=== PATIENT | male | born 1960 | race Caucasian/White ===

== ENCOUNTER 2022-06-20 20:08 | Emergency (ER) | payer OTHER ==
[~2022-06-20 20:08] MED LIST: WATER FOR INJ,STERILE 10 ML ONE; ZIPRASIDONE MESYLA 20 MG/VIAL IM ONE
--- OUTSIDE RECORDS SUMMARY | 2022-06-20 20:31 | XMS REPORT | Continuity of Care Document ---
:1960 Author Organization [facility] t Address [address] [place] [address] [address] [place] [address] Care Team Providers Name Role Phone CARLOTA SHEY Primary Care Physician Unavailable [id number] Attending Clinician Unavailable IZABELA PHAM Attending Clinician Unavailable IZABELA PHAM Attending Clinician Unavailable LAWRENCE PETERSON Attending Clinician Unavailable LAWRENCE PETERSON Attending Clinician Unavailable ROBINA BECERRIL Attending Clinician Unavailable Kvng CORONADO, Elyssa Thornton Attending Clinician Unavailable ALLAN LYNCH Attending Clinician Unavailable Meche Perry Attending Clinician Luis Huerta DO Attending Clinician Jaye Palafox MD Attending Clinician Lance Neal DO Attending Clinician RENEE PAREKH Attending Clinician Unavailable WOO DURAN Attending Clinician Unavailable Robina Becerril MD Attending Clinician RODRIGO BLACKMON Attending Clinician Unavailable Rodrigo Benavidez Attending Clinician Carlos Corbin MD Attending Clinician Doctor Unassigned, Susan Moore Attending Clinician Unavailable Dawson Choudhury MD Attending Clinician DAWSON CHOUDHURY Attending Clinician Unavailable DAWSON CHOUDHURY Attending Clinician Unavailable , [facility] Attending Clinician Unavailable Susan Manjarrez PA-C Attending Clinician USSAN MANJARREZ Attending Clinician Unavailable DELROY FARAH Attending Clinician Unavailable Delroy Farah MD Attending Clinician [facility] Attending Clinician Unavailable Erma Morales RN Attending Clinician Unavailable MAGDALENE MALDONADO Attending Clinician Unavailable Joel LAB AIDEMagdalene Garibay Attending Clinician Omaghomi MAE, Lenayemsuma Attending Clinician CARLOS CORBIN Attending Clinician Unavailable Ladonna Bryant DO Attending Clinician MICHAEL GILL Attending Clinician Unavailable Michael Fulton Attending Clinician CLEVE_ Attending Clinician Unavailable BENITO LOPEZ Attending Clinician Unavailable Edgard Leo DO Attending Clinician Magali Curtis MD Attending Clinician Ted Lion MD Attending Clinician Allen Maravilla MD Attending Clinician Georgina Duncan MD Attending Clinician [phone] SIENNA POLK Attending Clinician Unavailable LADI RIBERA Attending Clinician Unavailable YASMINE BROOKE Attending Clinician Unavailable MD YASMINE BROOKE Attending Clinician Unavailable Pato Hill MD Attending Clinician Surgery, [facility] General Attending Clinician Unavailable Sofia Malone MD Attending Clinician Surgery, [facility] Vascular Attending Clinician Unavailable Nereida CARTER, Ramana Egan Attending Clinician RAMANA AHMADI M.D., RAMANA Acevedo M.D. Attending Clinician Unavailable Christy Moya Attending Clinician [id number] Admitting Clinician Unavailable IZABELA PHAM Admitting Clinician Unavailable ALLAN LYNCH Admitting Clinician Unavailable MICHAEL GILL Admitting Clinician Unavailable CARLOS CORBIN Admitting Clinician Unavailable YVON_UZAIR__ Admitting Clinician Unavailable Magali Curtis MD Admitting Clinician Georgina Duncan MD Admitting Clinician [phone] YASMINE BROOKE Admitting Clinician Unavailable MD YASMINE BROOKE Admitting Clinician Unavailable Pato Hill MD Admitting Clinician RAMANA AHMADI M.D., RAMANA Acevedo Admitting Clinician Tasha ivey Payers Payer Name Policy Type Policy Number Effective Date Expiration Date S emmanuel [facility] [id number] [place] [id number] 2021 CLASSIC NO PREMIUM 00:00:00 O MEDICARE PART A [id number] 2003 00:00:00 [facility] [id number] [facility] 00:00:00 WELLCARE VALUE [id number] 2020 00:00:00 Problems Condition Condition Condition Status Onset Resolution Last Treating Co mments Source Name Details Category Date Date Treatment Clinician Date 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 4-14 ity of 00:00: [place] [id number] Medical Branch DVT (deep DVT (deep Disease Active Uni vers venous venous 4-14 [place] of [place] 00 [place] Bilateral Bilateral Disease Active Uni vers sciatica sciatica 4-13 ity of 00:00: [place] 00 Medical Branch Obesity Obesity Disease Active Univers (BMI (BMI 4-13 ity of 30-39.9) 30-39.9) 00:00: [place] 00 Medical Branch Deep vein Deep vein Disease Active Overview: Univers thrombosis thrombosis 4-13 Formattin ity of (DVT) of (DVT) of 00:00: g of this [place] as proximal proximal 00 note Medica l vein of vein of might be Branch both lower both lower different extremitie extremitie from the s, s, original. unspecifie unspecifie Added d d automatic chronicity chronicity ally from request for surgery [id number] Lipoma of Lipoma of Disease Active Overview: Univers right right 4-12 Formattin ity of lower lower 00:00: g of this [place] extremity extremity 00 note Medi gordon might be Branch different from the original. Added automatic ally from request for surgery [id number] Lipoma of Lipoma of Disease Active Uni vers torso torso 4-06 ity of 00:00: Medical Branch Kamryn Karmyn Disease Active Univers 624 ity of 00:00: Medical Branch Rhabdomyol Rhabdomyol Disease Active U nivers ysis ysis 6-21 ity of 00:00: Medical Branch Presence Presence Disease Active Metho di of IVC of IVC 17 st filter filter 00:00: [facility]osp[facility] 00 l Acute Acute Disease Active Methodi chest pain chest pain 9-15 st 00:00: [facility]ospita 00 l Behavior Behavior Disease Active Unive rs problem problem 6 ity of 00:00: [place] [facility] Cellulitis Cellulitis Disease Active U nivers and and 613 ity of abscess of abscess of [place] foot foot 00 [place] Alteration Alteration Disease Active U nivers consciousn consciousn 613 it y of ess ess 00:00: [place] [facility] TESTING TESTING Diagnosis Active 2014-07-28 Memoria FOR DVT FOR DVT 07-22 14:06:00 l Active 00:00: [place] 07/22/2014 00 [facility] 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 2-16 ity of disorder, disorder, [place] chronic chronic 00 Medical condition condition Bran ch with acute with acute exacerbati exacerbati on on Hypertensi Hypertens Problem Active 2014-07-25 Memoria ve raisa 07:19:48 l disorder, disorder, Herm britt systemic systemic arterial arterial (disorder) (disorder) Active Problem 07/25/2014 [facility] History of Past Illness Condition Condition Condition Status Onset Resolution Last Treating Co mments Source Name Details Category Date Date Treatment Clinician Date Discharge Discharge Problem 2014-07-25 2014-07-25 Memoria Diagnosis: Diagnosis: 07-22 07:19:48 07:19:48 l Chronic Chronic 05:00: [place] back pain back pain 00 07/22/2014 07/25/2014 [facility] Discharge Discharge Problem 2014-07-25 2014-07-25 Memoria Diagnosis: Diagnosis: 07-22 07:19:48 07:19:48 l Peripheral Peripheral 05:00: He rmann edema edema 00 07/22/2014 07/25/2014 [facility] Allergies, Adverse Reactions, Alerts Allergy Allergy Status Severity Reaction(s) Onset Inactive Treating Comm ents Source Name Type Date Date Clinician HEPARIN DRUG Active Unknown-Cmnt Uni vers INGREDI 4- ity of 00:00: [place] 00 Medical Branch Heparin Propensi Active Unknown - HIT-Ab Univ ers ty to See comments 4- ity of adverse 00:00: [place] reaction 00 Medical s Branch GABAPENT DRUG Active Other-Cmnt Univ ers IN INGREDI 4- ity of 00:00: [place] 00 Medical Branch Gabapent Propensi Active Other - See Hot U nivers in ty to comments 4-21 flashes ity of adverse 00:00: and upset [place] reaction 00 stomach Medical s Branch Penicill DA Active U Rash 2019- SJm ins 04-05 00:00: 00 No Known DA Active U 2019-02 SJm Drug 04-04 Allergie 00:00: s 00 Penicill Propensi Active Rash Univer s ins ty to 1-06 ity of adverse 00:00: [place] reaction 00 Medical s to Branch drug PENICILL Drug Active Rash Univers INS Class - ity of 00:00: [place] 00 Medical Branch Penicill Penicill Active Memori a in in l [place] Family History Family Member Diagnosis Comments Start Date Stop Date Source Natural father [facility] mother Diabetes [facility] Social History Social Habit Start Date Stop Date Quantity Comments Source History SDOH University o f Alcohol Std Drinks [place] [facility] History SDOH University o f Alcohol Binge [place] [facility] al [facility] History SDOH Social Unive rsity of Connections Get [place] Med ical Together Branch History SDOH Social Unive rsity of Connections Judaism [place] [facility] History SDOH Social Unive rsity of Connections [place] [facility] Membership Branch History SDOH Social Unive rsity of Connections [place] [facility] Meetings Branch Gender identity [facility] Exposure to 2022-06-06 2022-06-16 Not sure University of SARS-CoV-2 (event) 00:00:00 10:47:00 [place] [facility] History SDOH 2022-05-27 2022-05-27 1 University o f Alcohol Frequency 00:00:00 00:00:00 [place] M edical Branch History SDOH Social 2022-05-27 2022-05-27 5 Unive rsity of Connections Phone 00:00:00 00:00:00 [place] M edical Branch History SDOH Social 2022-05-27 2022-05-27 5 Unive rsity of Connections Living 00:00:00 00:00:00 [place] [facility] History SDOH 2022-05-27 2022-05-27 0 University o f Physical Activity 00:00:00 00:00:00 [place] M edical DPW Branch History SDOH 2022-05-27 2022-05-27 0 University o f Physical Activity 00:00:00 00:00:00 [place] M edical MPS Branch History SDOH 2022-05-27 2022-05-27 5 University o f Financial 00:00:00 00:00:00 [place] [facility] History SDOH Food 2022-05-27 2022-05-27 1 Univers ity of Worry 00:00:00 00:00:00 [place] [facility] History SDOH Food 2022-05-27 2022-05-27 1 Univers ity of Scarcity 00:00:00 00:00:00 [place] [facility] History SDOH 2022-05-27 2022-05-27 2 University o f Transport Med 00:00:00 00:00:00 [place] Medic al Branch History SDOH 2022-05-27 2022-05-27 2 University o f Transport Non-Med 00:00:00 00:00:00 [place] M edical Branch History SDIN 2022-05-27 2022-05-27 2 University o f Housing Unable to 00:00:00 00:00:00 [place] M edical Pay Branch History SDOH 2022-05-27 2022-05-27 1 University o f Housing Places 00:00:00 00:00:00 [facility] gordon Lived Branch History SDIN 2022-05-27 2022-05-27 2 University o f Housing Homeless 00:00:00 00:00:00 [facility] dical Last Year Branch Education 2022-05-26 2022-05-26 21 University of 00:00:00 00:00:00 [facility] Tobacco use and 2022-05-03 2022-05-03 User of Universit y of exposure 00:00:00 00:00:00 smokeless [facility] tobacco [place] Tobacco Comment 2021-09-22 2021-09-22 dipper Universit y of 00:00:00 00:00:00 [facility] History of Social 2019-10-31 2019-10-[address] function 00:00:00 00:00:00 Hospital Alcohol intake 2019-10-29 2019-10-29 Lifetime Catholic 00:00:00 00:00:00 non-drinker Hospital (finding) History of tobacco 2014-08-25 Snuff User Univer sity of use 00:00:00 [facility] Sex Ass[birth year] Catholic 00:00:00 00:00:00 Hospital Smoking Status Start Date Stop Date Source Social History [facility] Medications Ordered Filled Start Stop Current Ordering Indication Dosage Frequency Signature Comments Components Source Medication Medication Date Date Medication? Clinician (SIG) Name Name traMADoL 50 Yes Univer s mg tablet 5-01 ity of 00:00: Medical Branch traMADoL 50 2022-0 Yes Univer s mg tablet 5-01 ity of 00:00: Medical Branch traMADoL 50 2022-0 Yes Univer s mg tablet 5-01 ity of 00:00: 00 Medical Branch tc 2022-0 202- No [id number] 25mCi 25 Univer s 99m-medrona 4-25 04-25 millicurie i ty of te 13:50: 13:50 , [place] (DRAXIMAGE 00 :00 Intravenou Med ical MDP-25) s, ONCE, 1 Branch injection dose, [place] 06/07/22 at 0900, Routine apixaban 5 2022- Yes 5523 5mg Take 1 Univ ers mg tablet 4-25 05-26 tablet by ity of 00:00: 04:59 mouth in [place] 00 :00 the Medical morning Branch and 1 tablet in the evening. Do all this for 30 days. Indication s: history of deep vein thrombosis apixaban 5 2022-2022- Yes 5523 5mg Take 1 Univ ers mg tablet 4-25 05-26 tablet by ity of 00:00: 04:59 mouth in [place] 00 :00 the Medical morning Branch and 1 tablet in the evening. Do all this for 30 days. Indication s: history of deep vein thrombosis apixaban 5 2022-2022- Yes 5523 5mg Take 1 Univ ers mg tablet 4-25 05-26 tablet by ity of 00:00: 04:59 mouth in [place] 00 :00 the [facility] morning Branch and 1 tablet in the evening. Do all this for 30 days. Indication s: history of deep vein thrombosis apixaban 5 2022-0 2022- Yes 5523 5mg Take 1 Univ ers mg tablet 4-25 05-26 tablet by ity of 00:00: 04:59 mouth in [place] 00 :00 the Medical morning Branch and 1 tablet in the evening. Do all this for 30 days. Indication s: history of deep vein thrombosis apixaban 5 2022-0 2022- Yes 5523 5mg Take 1 Univ ers mg tablet 4-25 05-26 tablet by ity of 00:00: 04:59 mouth in [place] 00 :00 the Medical morning Branch and 1 tablet in the evening. Do all this for 30 days. Indication s: history of deep vein thrombosis apixaban 5 2022-0 2022- Yes 5523 5mg Take 1 Univ ers mg tablet 4-25 05-26 tablet by ity of 00:00: 04:59 mouth in [place] 00 :00 the Medical morning Branch and 1 tablet in the evening. Do all this for 30 days. Indication s: history of deep vein thrombosis apixaban 5 20222022- Yes 5523 5mg Take 1 Univ ers mg tablet 4-25 05-26 tablet by ity of 00:00: 04:59 mouth in [place] 00 :00 the Medical morning Branch and 1 tablet in the evening. Do all this for 30 days. Indication s: history of deep vein thrombosis apixaban 5 2022-2022- Yes 5523 5mg Take 1 Univ ers mg tablet 4-25 05-26 tablet by ity of 00:00: 04:59 mouth in [place] 00 :00 the Medical morning Branch and 1 tablet in the evening. Do all this for 30 days. Indication s: history of deep vein thrombosis apixaban 5 2022-2022- Yes 5523 5mg Take 1 Univ ers mg tablet 4-25 05-26 tablet by ity of 00:00: 04:59 mouth in [place] 00 :00 the Medical morning Branch and 1 tablet in the evening. Do all this for 30 days. Indication s: history of deep vein thrombosis apixaban 5 2022- Yes 5523 5mg Take 1 Univ ers mg tablet 4- 05-26 tablet by ity of 00:00: 04:59 mouth in [place] 00 :00 the Medical morning Branch and 1 tablet in the evening. Do all this for 30 days. Indication s: history of deep vein thrombosis apixaban 5 2022- Yes 5523 5mg Take 1 Univ ers mg tablet - 05-26 tablet by ity of 00:00: 04:59 mouth in [place] 00 :00 the Medical morning Branch and 1 tablet in the evening. Do all this for 30 days. Indication s: history of deep vein thrombosis acetaminoph 2022- Yes [id number] 500mg Take 1 Univers en 500 mg 4-25 05-06 tablet by ity of tablet 00:00: 04:59 mouth [place] 00 :00 every 6 Medical (six) Branch hours as needed for Pain for up to 10 days. acetaminoph 2022- Yes [id number] 500mg Take 1 Univers en 500 mg 4-25 05-06 tablet by ity of tablet 00:00: 04:59 mouth [place] 00 :00 every 6 Medical (six) Branch hours as needed for Pain for up to 10 days. acetaminoph 2022- Yes [id number] 500mg Take 1 Univers en 500 mg 4-25 05-06 tablet by ity of tablet 00:00: 04:59 mouth [place] 00 :00 every 6 Medical (six) Branch hours as needed for Pain for up to 10 days. acetaminoph 2022- Yes [id number] 500mg Take 1 Univers en 500 mg 4-25 05-06 tablet by ity of tablet 00:00: 04:59 mouth [place] 00 :00 every 6 Medical (six) Branch hours as needed for Pain for up to 10 days. acetaminoph 2022- Yes [id number] 500mg Take 1 Univers en 500 mg 4-25 05-06 tablet by ity of tablet 00:00: 04:59 mouth [place] 00 :00 every 6 Medical (six) Branch hours as needed for Pain for up to 10 days. acetaminoph 2022- Yes [id number] 500mg Take 1 Univers en 500 mg 4-25 05-06 tablet by ity of tablet 00:00: 04:59 mouth [place] 00 :00 every 6 Medical (six) Branch hours as needed for Pain for up to 10 days. acetaminoph 2022- Yes [id number] 500mg Take 1 Univers en 500 mg 4-25 05-06 tablet by ity of tablet 00:00: 04:59 mouth [place] 00 :00 every 6 Medical (six) Branch hours as needed for Pain for up to 10 days. docusate 2022- Yes [id number] 100mg Take 1 Univers 100 mg 4-25 05-03 capsule by ity of capsule 00:00: 04:59 mouth in [place] 00 :00 the Medical morning Branch for 7 days. HYDROcodone 2022- Yes [id number] 1{tbl} Take 1 U nivers -acetaminop 4-25 05-03 tablet by it y of hen 10-325 00:00: 04:59 mouth [place] mg tablet 00 :00 every 6 Medical (six) Branch hours as needed for Pain (scale 7-10) or Pain (scale 4-6) for up to 7 days. Indication s: acute pain polyethylen 2022- Yes [id number] 17g Take 1 Univers e glycol 4-25 05-03 Packet by ity o f 3350 17 00:00: 04:59 mouth [place] gram powder 00 :00 every 24 Medi gordon (twenty-fo Branch ur) hours as needed for Constipati on for up to 7 days. docusate 2022- Yes [id number] 100mg Take 1 Univers 100 mg 4-25 05-03 capsule by ity of capsule 00:00: 04:59 mouth in [place] 00 :00 the Medical morning Branch for 7 days. HYDROcodone 2022- Yes [id number] 1{tbl} Take 1 U nivers -acetaminop 4-25 05-03 tablet by it y of hen 10-325 00:00: 04:59 mouth [place] mg tablet 00 :00 every 6 Medical (six) Branch hours as needed for Pain (scale 7-10) or Pain (scale 4-6) for up to 7 days. Indication s: acute pain polyethylen 2022- Yes [id number] 17g Take 1 Univers e glycol 4-25 05-03 Packet by ity o f 3350 17 00:00: 04:59 mouth [place] gram powder 00 :00 every 24 [facility] hours as needed for Constipati on for up to 7 days. docusate 2022- Yes [id number] 100mg Take 1 Univers 100 mg 4-25 05-03 capsule by ity of capsule 00:00: 04:59 mouth in [place] 00 :00 the Medical morning Branch for 7 days. HYDROcodone 2022- Yes [id number] 1{tbl} Take 1 U nivers -acetaminop 4-25 05-03 tablet by it y of hen 10-325 00:00: 04:59 mouth [place] mg tablet 00 :00 every 6 Medical (six) Branch hours as needed for Pain (scale 7-10) or Pain (scale 4-6) for up to 7 days. Indication s: acute pain polyethylen 2022- Yes [id number] 17g Take 1 Univers e glycol 4-25 05-03 Packet by ity o f 3350 17 00:00: 04:59 mouth [place] gram powder 00 :00 every 24 Medi gordon (twenty-fo Branch ur) hours as needed for Constipati on for up to 7 days. docusate 2022- Yes [id number] 100mg Take 1 Univers 100 mg 4-25 05-03 capsule by ity of capsule 00:00: 04:59 mouth in [place] 00 :00 the [facility] Branch for 7 days. HYDROcodone 2022- Yes [id number] 1{tbl} Take 1 U nivers -acetaminop 06-07-03 tablet by it y of hen 10-325 00:00: 04:59 mouth [place] mg tablet 00 :00 every 6 Medical (six) Branch hours as needed for Pain (scale 7-10) or Pain (scale 4-6) for up to 7 days. Indication s: acute pain polyethylen 2022- Yes [id number] 17g Take 1 Univers e glycol 06-07- Packet by ity o f 3350 17 00:00: 04:59 mouth [place] gram powder 00 :00 every 24 Medi gordon (twenty-fo Branch ur) hours as needed for Constipati on for up to 7 days. benzocaine- Yes 1{lozen 1 Lozenge, Univers menthoL 4-23 ge} Oral, ity of (CEPACOL 05:03: Q4HPRN, [place] SORE THROAT 14 Starting Medi gordon (CLAUDIA-MEN)) [facility] at Lozenge 0003, Until Discontinu ed, Routine, Sore throat benzocaine- 0 Yes 1{lozen 1 Lozenge, Univers menthoL 4-23 ge} Oral, ity of (CEPACOL 05:03: Q4HPRN, [place] SORE THROAT 14 Starting Medi gordon (CLAUDIA-MEN)) on [facility] lozenge 06/05/22 at Lozenge 0003, Until Discontinu ed, Routine, Sore throat iopamidol 2022- No [id number] 80mL 80 mL, Univers (ISOVUE 06-05 Intravenou ity o f 370-500 mL) 01:36: 01:20 s, ONCE, 1 [place] injection 00 :00 dose, On Medica l 80 mL [facility] Branch 06/04/22 at 2045, Routine apixaban 2022- Yes 10mg [Order 1 Univ ers (ELIQUIS) 06-05 Start] ity of tablet 10 01:00: 00:59 Name: [place] mg 00 :00 apixaban Medical (ELIQUIS) Branch tablet 10 mg Signed Summary: 10 mg, Oral, BID, 14 doses, First dose on [facility] 06/04/22 at 1999, Last dose on [facility] 06/11/22 at 0800, Routine
Indicatio ns: DVT/PE [Order 1 End] [Order 2 Start] Name: apixaban (ELIQUIS) tablet 5 mg Signed Summary: 5 mg, Oral, BID, First dose on [facility] 06/11/22 at 1999, Until Discontinu ed, Routine
Indicatio ns: DVT/PE [Order 2 End] apixaban 2022- Yes 10mg [Order 1 Univ ers (ELIQUIS) 06-05 Start] ity of tablet 10 01:00: 00:59 Name: [place] mg 00 :00 apixaban Medical (ELIQUIS) Branch tablet 10 mg Signed Summary: 10 mg, Oral, BID, 14 doses, First dose on [facility] 06/04/22 at 1999, Last dose on [facility] 06/11/22 at 0800, Routine
Indicatio ns: DVT/PE [Order 1 End] [Order 2 Start] Name: apixaban (ELIQUIS) tablet 5 mg Signed Summary: 5 mg, Oral, BID, First dose on [facility] 06/11/22 at 1999, Until Discontinu ed, Routine
Indicatio ns: DVT/PE [Order 2 End] bisacodyL Yes 10mg 10 mg, Univer s (DULCOLAX) 06-04 Rectal, ity of suppository 15:25: QDAILYPRN [place] 10 mg 51 Starting Medical on [facility] 06/04/22 at 1025, Until Discontinu ed, Routine, Constipati on bisacodyL Yes 10mg 10 mg, Univer s (DULCOLAX) 06-04 Rectal, ity of suppository 15:25: QDAILYPRN, [place] 10 mg 51 Starting Medical on [facility] 06/04/22 at 1025, Until Discontinu ed, Routine, Constipati on argatroban 202- No .15ug/k 0.15-2 U nivers 50 mg in 06-04 04-22 g/min mcg/kg/min ity of 0.9% NaCl 08:24: 21:59 ?86.5 kg [place] as 50 mL RTU 03 :11 (0.7785-10 Medi gordon IV infusion .38 mL/hr, Br anch rounded to 0.78-10.38 mL/hr), IV Infusion, TITRATE, Parameters in Admin. Instr., Starting on 06/04/22 at 0324
No rmal dosage for non-critic al care patients without hepatic impairment . Ini tial infusion rate : 2 microgram/ kg/min (ABW), Check aPTT 3 hours after start of infusion.& nbsp;Adjus t rate of infusion as follows (MAXIUM INFUSION RATE NOT TO EXCEED 10 MICROGRAM/ KG/MIN): *aPTT = Activated Partial Thrombopla stin Time 1). Standard aPTT* (sec) < or = 44, Infusion rate change increase by 0.5 microgram/ kg/min, Next aPTT 3 hours after rate change. 2). Standard aPTT* (sec) 45-90 (target), Infusion rate change none, Next aPTT repeat 3 hours from last aPTT: after 2 consecutiv e aPTTs within target range, check aPTT every 12 hours. 3). Standard aPTT* (sec) 91-120, Infusion rate change decrease by 0.5 microgram/ kg/min, Next aPTT 3 hours after rate change. 4). Standard aPTT* (sec) 121-149, Infusion rate change hold infusion 1 hour, resume at 1/2 rate, Next aPTT 3 hours after rate change. 5). Standard aPTT* (sec) > or = 150, Infusion rate change hold infusion 1 hour, resume at 1/2 rate when aPTT < 90 sec, Next aPTT repeat every hour until aPTT < 90 sec. 6). If any acute bleeding/h ematoma, obtain STAT aPTT and CBC with platelet count and call physician< br> omeprazole 2022-0 Yes 20mg 20 mg, Unive rs (PRILOSEC) 4-22 Oral, ity of capsule 20 02:43: QDAILYPRN, [place] mg 53 Starting Medical on Mon Branch 06/03/22 at 2143, Until Discontinu ed, Routine, Indigestio n omeprazole 2022-0 Yes 20mg 20 mg, Unive rs (PRILOSEC) 06-04 Oral, ity of capsule 20 02:43: QDAILYPRN, [place] mg 53 Starting Medical on Fri Branch 06/03/22 at 2143, Until Discontinu ed, Routine, Indigestio n NaCl 0.9% 2022-0 Yes 1000mL at 75 Unive rs (NS) IV 4-21 mL/hr, IV ity of infusion 18:00: Infusion, [place] 1,000 mL 00 CONTINUOUS Medic al , Starting Branch on Mon06/03/22 at 1300, Until Discontinu ed, Routine, PACU NaCl 0.9% 2022-0 Yes 1000mL at 75 Unive rs (NS) IV 4-21 mL/hr, IV ity of infusion 18:00: Infusion, [place] 1,000 mL 00 CONTINUOUS Medic al , Starting Branch on Mon06/03/22 at 1300, Until Discontinu ed, Routine, PACU heparin 2022-0 2022- No PRN, Univers 10,000 06-03 Starting ity of units in NS 14:25: 07:25 on Mon [place] as 1000 mL for 00 :55 06/03/22 at Il dical vascular 0925, Branch Intra-op heparin 2022-0 2022- No 0U/h 0-3,050 Univer s 25,000 06-02- Units/hr ity of Units/250 15:22: 07:25 (0-30.5 [place] mL 27 :20 mL/hr), IV Medical (Premixed Infusion, Branc h Bag) in D5W TITRATE, Parameters in Admin. Instr., Starting on [place] 06/02/22 at 1022
In itiate dosing:&nb sp; & nbsp;&nbsp ; -Patient 73 kg or under: 1,300 Units/hr (Calculate d dose at 18 units/kg/h r) &n bsp; &nbs p; -Patient over 73 k,300 units/hr&n bsp;DO NOT Exceed the MAXIMUM 1,300 units/hr for initiation of heparin drip.&nbsp ; CAU TION - If LMWH given in ER, AVOID bolus and start next dose/drip 12 hrs after ER dosage.&nb sp; M ust program rate using programmab le infusion pump.&nbsp ; Priti ck with the ordering provider first prior to any administra tion should the patient be on existing/a dditional anticoagul ant therapy. Rang e, Dosing and Testing: &nbs p;DO NOT ADJUST INITIAL BOLUS OR INITIAL INFUSION RATE.&nbsp ; _ &nb sp;FOR [place], [facility], AND [facility] ONLY &nbs p; - aPTT < 35: & nbsp;Bolus 5000 units, increase rate 300 units/hr&n bsp; - aPTT 35-44:&nbs p; Brian brigid 3000 units, increase rate 200 units/hr&n bsp; - aPTT 45-54:&nbs p; In crease rate 100 units/hr&n bsp; - aPTT 55-85:&amp ;nbsp;&nbs p;NO CHANGE&nbs p; - aPTT 86-95:&nbs p; De crease rate 100 units/hr&n bsp; - aPTT 96-120:&nb sp; H old 30 minutes, decrease rate 150 units/hr&n bsp; - aPTT > 120: Hold 60 minutes, decrease rate 200 units/hr&n bsp; Check aPTT 6 hours after initiation , then Q6H after every change, aPTT Q12H once therapeuti c levels are reached.&n bsp; &nbs p; __ &n bsp;FOR [facility] ONLY - aPTT < 40: & nbsp;Bolus 5000 units, increase rate 300 units/hr&n bsp; - aPTT 40-49:&nbs p; Brian brigid 3000 units, increase rate 200 units/hr&n bsp; - aPTT 50-59:&nbs p; In crease rate 100 units/hr&n bsp; - aPTT 60-85:&nbs p; NO CHANGE&nbs p; - aPTT 86-95:&nbs p;&nbs p;Decrease rate 100 units/hr&n bsp; - aPTT 96-120:&nb sp; H old 30 minutes, decrease rate 150 units/hr&n bsp; - aPTT > 120: Hold 60 minutes, decrease rate 200 units/hr&n bsp; Check aPTT 6 hours after initiation , then Q6H after every change, aPTT Q12H once therapeuti c levels are reached.<b r> mineral oil Yes 30mL 30 mL, Univ ers (MINERAL 4-20 Oral, ity of OIL EXTRA 14:00: DAILY, [place] HEAVY) oral 00 First dose Me dical liquid 30 on [place] [facility] mL 06/02/22 at 0900, Until Discontinu ed, Routine mineral oil Yes 30mL 30 mL, Univ ers (MINERAL 4-20 Oral, ity of OIL EXTRA 14:00: DAILY, [place] HEAVY) oral 00 First dose Me dical liquid 30 on [place] mL 06/02/22 at 0900, Until Discontinu ed, Routine apixaban 2022- Yes 10mg [Order 1 Univ ers (ELIQUIS) 05-31 Start] ity of tablet 10 15:30: 12:59 Name: [place] mg 00 :00 apixaban Medical (ELIQUIS) Branch tablet 10 mg Signed Summary: 10 mg, Oral, BID, 14 doses, First dose on Mon05/31/22 at 1030, Last dose on Mon06/06/22 at 2000, Routine
Indicatio ns: DVT/PE [Order 1 End] [Order 2 Start] Name: apixaban (ELIQUIS) tablet 5 mg Signed Summary: 5 mg, Oral, BID, First dose on Mon06/07/22 at 0800, Until Discontinu ed, Routine
Indicatio ns: DVT/PE [Order 2 End] docusate 0 Yes 100mg 100 mg, Unive rs (COLACE) 18 Oral, ity of capsule 100 14:00: [place] 00 First dose Medical on [facility] 05/31/22 at 0900, Until Discontinu ed, Routine docusate 2022-0 Yes 100mg 100 mg, Unive rs (COLACE) 18 Oral, ity of capsule 100 14:00: [place]ILY[place] 00 First dose Medical on [facility] 05/31/22 at 0900, Until Discontinu ed, Routine docusate 0 Yes 100mg 100 mg, Unive rs (COLACE) 18 Oral, ity of capsule 100 14:00: [place]ILY[place] 00 First dose Medical on [facility] 05/31/22 at 0900, Until Discontinu ed, Routine docusate 2022-0 Yes 100mg 100 mg, Unive rs (COLACE) 18 Oral, ity of capsule 100 14:00: DAILY, [place] 00 First dose Medical on [facility] 05/31/22 at 0900, Until Discontinu ed, Routine heparin 2022-0 2022- No 0U/h 0-3,050 Univer s 25,000 05-31 04-18 Units/hr ity of Units/250 05:09: 15:17 (0-30.5 [place] mL in NS 59 :08 mL/hr), IV Medic al Infusion, Branch TITRATE, Parameters in Admin. Instr., Starting on Mon05/31/22 at 0009
In itiate dosing:&nb sp; & nbsp;&nbsp ; -Patient 73 kg or under: 1,300 Units/hr (Calculate d dose at 18 units/kg/h r) &n bsp; &nbs p; -Patient over 73 k,300 units/hr&n bsp;DO NOT Exceed the MAXIMUM 1,300 units/hr for initiation of heparin drip.&nbsp ; CAU TION - If LMWH given in ER, AVOID bolus and start next dose/drip 12 hrs after ER dosage.&nb sp; M ust program rate using programmab le infusion pump.&nbsp ; Priti ck with the ordering provider first prior to any administra tion should the patient be on existing/a dditional anticoagul ant therapy. Rang e, Dosing and Testing: &nbs p;DO NOT ADJUST INITIAL BOLUS OR INITIAL INFUSION RATE.&nbsp ; _ &nb sp;FOR [facility], AND [facility] ONLY &nbs p; - aPTT < 35: & nbsp;Bolus 5000 units, increase rate 300 units/hr&n bsp; - aPTT 35-44:&nbs p; Brian brigid 3000 units, increase rate 200 units/hr&n bsp; - aPTT 45-54:&nbs p; In crease rate 100 units/hr&n bsp; - aPTT 55-85:&amp ;nbsp;&nbs p;NO CHANGE&nbs p; - aPTT 86-95:&nbs p; De crease rate 100 units/hr&n bsp; - aPTT 96-120:&nb sp; H old 30 minutes, decrease rate 150 units/hr&n bsp; - aPTT > 120: Hold 60 minutes, decrease rate 200 units/hr&n bsp; Check aPTT 6 hours after initiation , then Q6H after every change, aPTT Q12H once therapeuti c levels are reached.&n bsp; &nbs p; __ &n bsp;FOR [facility] ONLY - aPTT < 40: & nbsp;Bolus 5000 units, increase rate 300 units/hr&n bsp; - aPTT 40-49:&nbs p; Brian brigid 3000 units, increase rate 200 units/hr&n bsp; - aPTT 50-59:&nbs p; In crease rate 100 units/hr&n bsp; - aPTT 60-85:&nbs p; NO CHANGE&nbs p; - aPTT 86-95:&nbs p;&nbs p;Decrease rate 100 units/hr&n bsp; - aPTT 96-120:&nb sp; H old 30 minutes, decrease rate 150 units/hr&n bsp; - aPTT > 120: Hold 60 minutes, decrease rate 200 units/hr&n bsp; Check aPTT 6 hours after initiation , then Q6H after every change, aPTT Q12H once therapeuti c levels are reached.<b r> iopamidol 3-0 Yes PRN, Univers (ISOVUE-300 4-18 Starting ity of ) injection 02:47: on Mon05/30/[address] Until Discontinu ed, Routine, Intra-op iopamidol 2022-0 Yes PRN, Univers (ISOVUE-300 4-18 Starting ity of ) injection 02:47: on Mon05/30/[address] Until Discontinu ed, Routine, Intra-op iopamidol 2022-0 Yes PRN, Univers (ISOVUE-300 4-18 Starting ity of ) injection 02:47: on Mon05/30/[address] Until Discontinu ed, Routine, Intra-op heparin 2022-0 Yes PRN, Univers 10,000 4-18 Starting ity of units in NS 01:26: on [place] 1000 [place] for 00 05/30/22 at [facility] dical vascular 2025, Branch Intra-op heparin 2022-0 Yes 300U/h 300 Univers 25,000 4-17 Units/hr ity of Units/250 16:40: (3 mL/hr), [place] mL 36 IV Medical (Premixed Infusion, Branc h Bag) in D5W TITRATE, Parameters in Admin. Instr., Starting on Mon05/30/22 at 1140
30 0 Units/hr. Non titratable
heparin 2022-0 2023- No 300U/h 300 Univers 25,000 4-17 04-18 Units/hr ity of Units/250 16:40: 05:10 (3 mL/hr), [place] mL 36 :21 IV Medical (Premixed Infusion, Branc h Bag) in D5W TITRATE, Parameters in Admin. Instr., Starting on Mon05/30/22 at 1140
30 0 Units/hr. Non titratable
heparin 2022-0 Yes 300U/h 300 Univers 25,000 4-17 Units/hr ity of Units/250 14:24: (3 mL/hr), [place] mL in D5W 12 IV Medical infusion Infusion, Branch (CNR) TITRATE, Parameters in Admin. Instr., Starting on Mon05/30/22 at 0924
30 0 Units/hr. Non titratable
heparin 2022-0 2022- No 300U/h 300 Univers 25,000 4-17 04-18 Units/hr ity of Units/250 14:24: 05:10 (3 mL/hr), [place] mL in D5W 12 :21 IV Medical infusion Infusion, Branch (CNR) TITRATE, Parameters in Admin. Instr., Starting on Mon05/30/22 at 0924
30 0 Units/hr. Non titratable
alteplase 2022-0 Yes .5mg/h 0.5 mg/hr U nivers (CATHFLO 4-17 (12.5 ity of ACTIVASE) 14:00: mL/hr), IV [place] 20 mg in 00 Infusion, Medica l NaCl 0.9% CONTINUOUS Bran ch (NS) 500 mL , Starting infusion on Mon05/30/22 at 0900
In fuse Via: infusion catheter. Location: left lower extremity sheath. Total infusion max dose is 4 mg/hr from all infusion sites combined.< br> alteplase 2023-0 Yes .5mg/h 0.5 mg/hr U nivers (CATHFLO -17 (12.5 ity of ACTIVASE) 14:00: mL/hr), IV [place] 20 mg in 00 Infusion, Medica l NaCl 0.9% CONTINUOUS Bran ch (NS) 500 mL , Starting infusion on Mon05/30/22 at 0900
In fuse Via: infusion catheter. Location: Right lower extremity sheath. Total infusion max dose is 4 mg/hr from all infusion sites combined.< br> alteplase 3-0 2023- No .5mg/h 0.5 mg/hr Univers (CATHFLO 05-3018 (12.5 ity of ACTIVASE) 14:00: 05:10 mL/hr), IV [place] 20 mg in 00 :21 Infusion, Medica l NaCl 0.9% CONTINUOUS Bran ch (NS) 500 mL , Starting infusion on Mon05/30/22 at 0900
In fuse Via: infusion catheter. Location: left lower extremity sheath. Total infusion max dose is 4 mg/hr from all infusion sites combined.< br> alteplase 3-0 2023- No .5mg/h 0.5 mg/hr Univers (CATHFLO 05-3018 (12.5 ity of ACTIVASE) 14:00: 05:10 mL/hr), IV [place] 20 mg in 00 :21 Infusion, Medica l NaCl 0.9% CONTINUOUS Bran ch (NS) 500 mL , Starting infusion on Mon05/30/22 at 0900
In fuse Via: infusion catheter. Location: Right lower extremity sheath. Total infusion max dose is 4 mg/hr from all infusion sites combined.< br> KCL 2023-0 2023- No 20meq 20 mEq, Univers (KLOR-CON 05-30 Oral, ity of M20) tablet 11:15: 11:12 ONCE, 1 [place] 20 mEq 00 :00 dose, On Medical Mon Branch 05/30/22 at 0615, Routine heparin 2022-2022- No 0U/h 0-3,050 Univer s 25,000 05-30 04-17 Units/hr ity of Units/250 06:04: 14:01 (0-30.5 [place] mL 50 :49 mL/hr), IV Medical (Premixed Infusion, Branc h Bag) in TITRATE, 0.45 % NS Parameters in Admin. Instr., Starting on 05/30/22 at 0104
In itiate dosing:&nb sp; & nbsp;&nbsp ; -Patient 73 kg or under: 1,300 Units/hr (Calculate d dose at 18 units/kg/h r) &n bsp; &nbs p; -Patient over 73 k,300 units/hr&n bsp;DO NOT Exceed the MAXIMUM 1,300 units/hr for initiation of heparin drip.&nbsp ; CAU TION - If LMWH given in ER, AVOID bolus and start next dose/drip 12 hrs after ER dosage.&nb sp; M ust program rate using programmab le infusion pump.&nbsp ; Priti ck with the ordering provider first prior to any administra tion should the patient be on existing/a dditional anticoagul ant therapy. Rang e, Dosing and Testing: &nbs p;DO NOT ADJUST INITIAL BOLUS OR INITIAL INFUSION RATE.&nbsp ; _ &nb sp;[facility], AND [facility] ONLY &nbs p; - aPTT < 35: & nbsp;Bolus 5000 units, increase rate 300 units/hr&n bsp; - aPTT 35-44:&nbs p; Brian brigid 3000 units, increase rate 200 units/hr&n bsp; - aPTT 45-54:&nbs p; In crease rate 100 units/hr&n bsp; - aPTT 55-85:&amp ;nbsp;&nbs p;NO CHANGE&nbs p; - aPTT 86-95:&nbs p; De crease rate 100 units/hr&n bsp; - aPTT 96-120:&nb sp; H old 30 minutes, decrease rate 150 units/hr&n bsp; - aPTT > 120: Hold 60 minutes, decrease rate 200 units/hr&n bsp; Check aPTT 6 hours after initiation , then Q6H after every change, aPTT Q12H once therapeuti c levels are reached.&n bsp; &nbs p; __ &n bsp;FOR [facility] ONLY - aPTT < 40: & nbsp;Bolus 5000 units, increase rate 300 units/hr&n bsp; - aPTT 40-49:&nbs p; Brian brigid 3000 units, increase rate 200 units/hr&n bsp; - aPTT 50-59:&nbs p; In crease rate 100 units/hr&n bsp; - aPTT 60-85:&nbs p; NO CHANGE&nbs p; - aPTT 86-95:&nbs p;&nbs p;Decrease rate 100 units/hr&n bsp; - aPTT 96-120:&nb sp; H old 30 minutes, decrease rate 150 units/hr&n bsp; - aPTT > 120: Hold 60 minutes, decrease rate 200 units/hr&n bsp; Check aPTT 6 hours after initiation , then Q6H after every change, aPTT Q12H once therapeuti c levels are reached.<b r> hydralAZINE 2023-0 Yes 10mg 10 mg, Univ ers (APRESOLINE 4-17 Slow IV ity o f ) injection 03:32: [place], [place] 10 mg 18 Q4HPRN, Medical Starting Branch on 05/29/22 at 2232, Until Discontinu ed, Routine, DBP=>10 0; SBP=>160, and HR < 70 hydralAZINE 2023-0 Yes 10mg 10 mg, Univ ers (APRESOLINE 4-17 Slow IV ity o f ) injection 03:32: Push, [place] 10 mg 18 Q4HPRN, Medical Starting Branch on 05/29/22 at 2232, Until Discontinu ed, Routine, DBP=>10 0; SBP=>160, and HR < 70 hydralAZINE 2023-0 Yes 10mg 10 mg, Univ ers (APRESOLINE 4-17 Slow IV ity o f ) injection 03:32: Push, [place] 10 mg 18 Q4HPRN, Medical Starting Branch on 05/29/22 at 2232, Until Discontinu ed, Routine, DBP=>10 0; SBP=>160, and HR < 70 hydralAZINE 2023-0 Yes 10mg 10 mg, Univ ers (APRESOLINE 4-17 Slow IV ity o f ) injection 03:32: Push, [place] 10 mg 18 Q4HPRN, Medical Starting Branch on 05/29/22 at 2232, Until Discontinu ed, Routine, DBP=>10 0; SBP=>160, and HR < 70 labetaloL 2023-0 Yes 10mg 10 mg, Univer s (NORMODYNE) 4-17 Slow IV ity o f injection 03:31: Push, [place] 10 mg 53 Q4HPRN, Medical Starting Branch on 05/29/22 at 2231, Until Discontinu ed, Routine, SBP > 160 and HR > 70 labetaloL 2023-0 Yes 10mg 10 mg, Univer s (NORMODYNE) 4-17 Slow IV ity o f injection 03:31: [place], [place] 10 mg 53 Q4HPRN, Medical Starting Branch on 05/29/22 at 2231, Until Discontinu ed, Routine, SBP > 160 and HR > 70 labetaloL 3-0 Yes 10mg 10 mg, Univer s (NORMODYNE) 4-17 Slow IV ity o f injection 03:31: [place], [place] 10 mg 53 Q4HPRN, [facility] Starting [place] on [place] 05/29/22 at 2231, Until Discontinu ed, Routine, SBP > 160 and HR > 70 labetaloL 3-0 Yes 10mg 10 mg, Univer s (NORMODYNE) 4-17 Slow IV ity o f injection 03:31: [place], [place] 10 mg 53 Q4HPRN, [facility] Starting [place] on [place] 05/29/22 at 2231, Until Discontinu ed, Routine, SBP > 160 and HR > 70 traMADoL 2022-0 Yes 50mg 50 mg, Univers (ULTRAM) 4-17 Oral, Q6H, ity o f tablet 50 01:45: First dose [place] mg 00 on [facility] 05/29/22 at Branch 2044, Until Discontinu ed, Routine traMADoL 2022-0 Yes 50mg 50 mg, Univers (ULTRAM) 4-17 Oral, Q6H, ity o f tablet 50 01:45: First dose [place] mg 00 on [facility] 05/29/22 at Branch 2044, Until Discontinu ed, Routine traMADoL 2022-0 Yes 50mg 50 mg, Univers (ULTRAM) 4-17 Oral, Q6H, ity o f tablet 50 01:45: First dose [place] mg 00 on [facility] 05/29/22 at Branch 2044, Until Discontinu ed, Routine traMADoL 2022-0 Yes 50mg 50 mg, Univers (ULTRAM) 4-17 Oral, Q6H, ity o f tablet 50 01:45: First dose [place] mg 00 on [facility] 05/29/22 at Branch 2044, Until Discontinu ed, Routine HYDROcodone 2022-0 Yes 1{tbl} 1 tablet, Univers -acetaminop 4-17 Oral, ity of hen (NORCO) 01:37: Q6HPRN, [place] 10-325 mg 54 Starting Medica l tablet 1 on [facility] tablet 05/29/22 at 2036, Until Discontinu ed, Routine, Pain (scale 7-10), Pain (scale 4-6) HYDROcodone 2022-0 Yes 1{tbl} 1 tablet, Univers -acetaminop 4-17 Oral, ity of hen (NORCO) 01:37: Q6HPRN, [place] 10-325 mg 54 Starting Medica l tablet 1 on [place] tablet 05/29/22 at 2036, Until Discontinu ed, Routine, Pain (scale 7-10), Pain (scale 4-6) HYDROcodone 2022-0 Yes 1{tbl} 1 tablet, Univers -acetaminop 4-17 Oral, ity of hen (NORCO) 01:37: Q6HPRN, [place] 10-325 mg 54 Starting Medica l tablet 1 on [place] tablet 05/29/22 at 2036, Until Discontinu ed, Routine, Pain (scale 7-10), Pain (scale 4-6) HYDROcodone 2022-0 Yes 1{tbl} 1 tablet, Univers -acetaminop 4-17 Oral, ity of hen (NORCO) 01:37: Q6HPRN, [place] 10-325 mg 54 Starting Medica l tablet 1 on [place] tablet 05/29/22 at 2036, Until Discontinu ed, Routine, Pain (scale 7-10), Pain (scale 4-6) heparin 3-0 2023- No 300U/h 300 Univers 25,000 05-29 04-17 Units/hr ity of Units/250 17:45: 06:05 (3 mL/hr), [place] mL 01 :58 IV Medical (Premixed Infusion, Branc h Bag) in TITRATE, 0.45 % NS Parameters in Admin. Instr., Starting on Mon05/29/22 at 1245
30 0 units non titratable
acetaminoph 2022-0 Yes 500mg 500 mg, Un mary en 4-16 Oral, Q6H, ity of (TYLENOL) 17:15: First dose [place] tablet 500 00 (after Medical mg last Branch modificati on) on Mon05/29/22 at 1215, Until Discontinu ed, Routine acetaminoph 2023-0 Yes 500mg 500 mg, Un mary en 4-16 Oral, Q6H, ity of (TYLENOL) 17:15: First dose [place] tablet 500 00 (after Medical mg last Branch modificati on) on 05/29/22 at 1215, Until Discontinu ed, Routine acetaminoph 2023-0 Yes 500mg 500 mg, Un mary en 4-16 Oral, Q6H, ity of (TYLENOL) 17:15: First dose [place] tablet 500 00 (after Medical mg last Branch modificati on) on 05/29/22 at 1215, Until Discontinu ed, Routine acetaminoph 2023-0 Yes 500mg 500 mg, Un mary en 4-16 Oral, Q6H, ity of (TYLENOL) 17:15: First dose [place] tablet 500 00 (after Medical mg last Branch modificati on) on 05/29/22 at 1215, Until Discontinu ed, Routine HYDROcodone 2022-0 2022- No 1{tbl} 1 tablet, Univers -acetaminop 05-29 04-17 Oral, ity of hen (NORCO 17:03: 01:38 Q6HPRN, [place] 5) 5-325 mg 06 :07 Starting [facility] tablet 1 on [place] Branch tablet 05/29/22 at 1203, Until 05/29/22 at 2038, Routine, Pain (scale 4-6), Pain (scale 7-10) heparin 2022-0 202- No 300U/h 300 Univers 25,000 05-29 04-17 Units/hr ity of Units/250 15:46: 14:20 (3 mL/hr), [place] mL 48 :43 IV Medical (Premixed Infusion, Branc h Bag) in TITRATE, 0.45 % NS Parameters in Admin. Instr., Starting on 05/29/22 at 1046
30 0 units/hr, non-titrat able
iodixanoL 2022-0 Yes PRN, Univers (VISIPAQUE 16 Starting ity o f 270-150 mL) 13:50: [place] injection 00 05/29/22 at [facility] [place] [address], Branch Until Discontinu ed, Routine, Intra-op iodixanoL 2023-0 Yes PRN, Univers (VISIPAQUE -16 Starting ity o f 270-150 mL) 13:50: on [place] injection 00 05/29/22 at [place] [id number], [place] Until Discontinu ed, Routine, Intra-op iodixanoL 2023-0 Yes PRN, Univers (VISIPAQUE 4-16 Starting ity o f 270-150 mL) 13:50: on [place] injection 05/29/22 at [place] [id number], [place] Until Discontinu ed, Routine, Intra-op iodixanoL 2023-0 Yes PRN, Univers (VISIPAQUE 4-16 Starting ity o f 270-150 mL) 13:50: on [place] injection 05/29/22 at [place] [id number], Branch Until Discontinu ed, Routine, Intra-op lidocaine 2023-0 Yes PRN, Univers 1% (PF) 4-16 Starting ity of (XYLOCAINE) 13:00: [place] injection 05/29/22 at [place] [id number], [place] Until Discontinu ed, Routine, Intra-op lidocaine 2023-0 Yes PRN, Univers 1% (PF) 4-16 Starting ity of (XYLOCAINE) 13:00: on [place] injection 05/29/22 at [place] [id number], Branch Until Discontinu ed, Routine, Intra-op lidocaine 2023-0 Yes PRN, Univers 1% (PF) 4-16 Starting ity of (XYLOCAINE) 13:00: [place] injection 05/29/[address] Until Discontinu ed, Routine, Intra-op lidocaine 2023-0 Yes PRN, Univers 1% (PF) 4-16 Starting ity of (XYLOCAINE) 13:00: on [place] injection 05/29/22 at [place] [id number], [place] Until Discontinu ed, Routine, Intra-op alteplase 2023-0 2023- No 1mg/h 1 mg/hr Uni vers (CATHFLO 05-2917 (25 ity of ACTIVASE) 12:30: 13:58 mL/hr), IV [place] 20 mg in 00 :35 Infusion, Medica l NaCl 0.9% CONTINUOUS Bran ch (NS) 500 mL , Starting infusion on [place] 05/29/22 at 0730
In fuse Via: infusion catheter. Location: left lower extremity sheath. Total infusion max dose is 4 mg/hr from all infusion sites combined.< br> alteplase 2022- No 1mg/h 1 mg/hr Uni vers (CATHFLO 05-29 (25 ity of ACTIVASE) 12:30: 13:58 mL/hr), IV [place] 20 mg in 00 :35 Infusion, Medica l NaCl 0.9% CONTINUOUS Bran ch (NS) 500 mL , Starting infusion on 05/29/22 at 0730
In fuse Via: infusion catheter. Location: Right lower extremity sheath. Total infusion max dose is 4 mg/hr from all infusion sites combined.< br> morpHINE (2 2022- No 2mg 2 mg, Slow Univers mg/mL) 05-2915 IV [place], ity of injection 2 00:15: 23:36 ONCE, 1 [place] mg 00 :00 dose, On Medical Sat Branch 05/28/22 at 1915, Routine HEPARIN 2022- No 4000U 4,000 Univers SODIUM 05-28-15 Units, IV ity of (PORCINE) 16:30: 17:27 [place], [place] 1,000 00 :00 ONCE, 1 Medical UNIT/ML dose, On Branch BOLUS ACS Sat ORDER SET 05/28/22 at 1130, MICHELLE heparin 2022- No 0U/h 0-2,750 Univer s 25,000 05-28-16 Units/hr ity of Units/250 16:23: 15:43 (0-27.5 [place] mL 58 :36 mL/hr), IV Medical (Premixed Infusion, Branc h Bag) in TITRATE, 0.45 % NS Parameters in Admin. Instr., Starting on 05/28/22 at 1123
In itiate dosing:&nb sp; & nbsp;&nbsp ; -Patient 83 kg or under: 1,000 Units/hr (Calculate d dose at 12 units/kg/h r) &n bsp; &nbs p; -Patient over 83 k,000 units/hr&n bsp;DO NOT Exceed the MAXIMUM 1,000 units/hr for initiation of heparin drip.&nbsp ; CAU TION - If LMWH given in ER, AVOID bolus and start next dose/drip 12 hrs after ER dosage.&nb sp; M ust program rate using programmab le infusion pump.&nbsp ; Priti ck with the ordering provider first prior to any administra tion should the patient be on existing/a dditional anticoagul ant therapy. Rang e, Dosing and Testing: &nbs p;FOR [facility], AND [facility] ONLY &nbs p; - aPTT < 35: & nbsp;Bolus 5000 units, increase rate 300 units/hr&n bsp; - aPTT 35-44:&nbs p; Brian brigid 3000 units, increase rate 200 units/hr&n bsp; - aPTT 45-54:&nbs p; In crease rate 100 units/hr&n bsp; - aPTT 55-85:&nbs p; NO CHANGE&nbs p; - aPTT 86-95:&nbs p; De crease rate 100 units/hr&n bsp; - aPTT 96-120:&nb sp; H old 30 minutes, decrease rate 150 units/hr&n bsp; - aPTT > 120: Hold 60 minutes, decrease rate 200 units/hr&n bsp; Check aPTT 6 hours after initiation , then Q6H after every change, aPTT Q12H once therapeuti c levels are reached.&n bsp; &nbs p; __ &n bsp;FOR [facility] ONLY - aPTT < 40: & nbsp;Bolus 5000 units, increase rate 300 units/hr&n bsp; - aPTT 40-49:&amp ;nbsp;&nbs p;Bolus 3000 units, increase rate 200 units/hr&n bsp; - aPTT 50-59:&nbs p; In crease rate 100 units/hr&n bsp; - aPTT 60-85:&nbs p; NO CHANGE&nbs p; - aPTT 86-95:&nbs p; De crease rate 100 units/hr&n bsp; - aPTT 96-120:&nb sp; H old 30 minutes, decrease rate 150 units/hr&n bsp; - aPTT > 120: Hold 60 minutes, decrease rate 200 units/hr&n bsp; Check aPTT 6 hours after initiation , then Q6H after every change, aPTT Q12H once therapeuti c levels are reached.&n bsp; DO NOT ADJUST INITIAL BOLUS OR INITIAL INFUSION RATE.
heparin Yes 3000U FOR Univers (1,000 05-28 REBOLUSING ity of unit/mL, 10 16:23: , Starting [place] mL vial) 36 on [facility] for 05/28/22 at Branch Rebolusing 1123, Until Discontinu ed, Routine
Dosing based on aPPT testing parameters (refer to continuous heparin drip order).
sulfur 2022- No [id number] 5mL 5 mL, Univ ers hexafluorid 05-27 Intravenou i ty of e microsphr 18:30: 18:30 s, ONCE, 1 [place] (LUMASON) 00 :00 dose, On Medica l injection 5 Fri Branch mL 05/27/22 at 1330, Routine
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 medication : HAROON MOYER enoxaparin 2022- No 1mg/kg 90 mg Uni vers (LOVENOX) 05-27 (rounded ity o f injection 14:07: 16:25 from 86.5 [place] 90 mg 50 :10 mg = 1 Medical mg/kg Branch ?86.5 kg), [facility], First dose on Mon05/27/22 at 2000, Until Discontinu ed, Routine polyethylen 2023-0 Yes 17g 17 g, Unive rs e glycol 4-14 Oral, ity of 3350 powder 14:00: DAILY, [place] 17 g 00 First dose Medical on Mon05/27/22 at 0900, Until Discontinu ed, Routine polyethylen 2023-0 Yes 17g 17 g, Unive rs e glycol 4-14 Oral, ity of 3350 powder 14:00: DAILY, [place] 17 g 00 First dose [place] on Mon05/27/22 at 0900, Until Discontinu ed, Routine polyethylen 2023-0 Yes 17g 17 g, Unive rs e glycol 4-14 Oral, ity of 3350 powder 14:00: [place] 17 g 00 First dose Medical on Mon [place] 05/27/22 at 0900, Until Discontinu ed, Routine polyethylen 2023-0 Yes 17g 17 g, Unive rs e glycol 4-14 Oral, ity of 3350 powder 14:00: [place]ILY[place] 17 g 00 First dose Medical on Mon05/27/22 at 0900, Until Discontinu ed, Routine methocarbam 2023-0 Yes 500mg 500 mg, Un mary oL 4-14 Oral, QID, ity of (ROBAXIN) 13:00: First dose [place] tablet 500 00 on Mon [facility] mg 05/27/22 at [facility] 0800, Until Discontinu ed, Routine gabapentin 2023-0 Yes 300mg 300 mg, Uni vers (NEURONTIN) 4-14 Oral, TID, it y of capsule 300 13:00: First dose [place] mg 00 on Mon Medical 05/27/22 at [facility] 0800, Until Discontinu ed, Routine methocarbam 2023-0 Yes 500mg 500 mg, Un mary oL 4-14 Oral, QID, ity of (ROBAXIN) 13:00: First dose [place] tablet 500 00 on Fri Medical mg 05/27/22 at [facility] 0800, Until Discontinu ed, Routine gabapentin 2023-0 Yes 300mg 300 mg, Uni vers (NEURONTIN) 4-14 Oral, TID, it y of capsule 300 13:00: First dose [place] mg 00 on Fri Medical 05/27/22 at [facility] 0800, Until Discontinu ed, Routine methocarbam 202-0 Yes 500mg 500 mg, Un mary oL 4-14 Oral, QID, ity of (ROBAXIN) 13:00: First dose [place] tablet 500 00 on Fri Medical mg 05/27/22 at Branch 0800, Until Discontinu ed, Routine methocarbam 2022-0 Yes 500mg 500 mg, Un mary oL 4-14 Oral, QID, ity of (ROBAXIN) 13:00: First dose [place] tablet 500 00 on Fri Medical mg 05/27/22 at Branch 0800, Until Discontinu ed, Routine gabapentin 2022- No 300mg 300 mg, Un mary (NEURONTIN) 05-2722 Oral, TID, i ty of capsule 300 13:00: 04:23 First dose [place] mg 00 :21 on [facility] [place] Medical 05/27/22 at Branch 0800, Until Discontinu ed, Routine iopamidol 2022- No [id number] 100mL 100 mL, Univers (ISOVUE 05-27 [id number] Intravenou ity of 370-500 mL) 12:15: 12:15 s, ONCE, 1 [place] injection 00 :00 dose, On Medica l 100 mL Fri Branch 05/27/22 at 0715, Routine ALPRAZolam 2022- No .5mg 0.5 mg, Uni vers (XANAX) 05-27 Oral, ity of tablet 0.5 05:45: 05:15 ONCE, 1 [place] mg 00 :00 dose, On Medical Fri Branch 05/27/22 at 0045, Routine cyclobenzap 2022- No 10mg 10 mg, Uni vers rine 05-27 Oral, ity of (FLEXERIL) 04:47: 17:03 TIDPRN, [place] tablet 10 48 :01 Starting Medica l mg on [place] Branch 05/26/22 at 2347, Until 05/29/22 at 1203, Routine, Muscle Spasms HYDROcodone 2022-0 2022- No 1{tbl} 1 tablet, Univers -acetaminop 05-27-16 Oral, ity of hen (NORCO 04:44: 17:03 Q6HPRN, [place] 5) 5-325 mg 15 :15 Starting Medi [place] tablet 1 on [facility] tablet 05/26/22 at 2344, Until 05/29/22 at 1203, Routine, Pain (scale 4-6) ondansetron 3-0 Yes 4mg 4 mg, Slow Univers (ZOFRAN 4-14 IV Push, ity of (PF)) 01:30: Q6HPRN, [place] injection 4 58 Starting Medi gordon mg on [facility] Branch 05/26/22 at 2030, Until Discontinu ed, Routine, Nausea and Vomiting (N/V) ondansetron 2023-0 Yes 4mg 4 mg, Slow Univers (ZOFRAN 4-14 IV Push, ity of (PF)) 01:30: Q6HPRN, [place] injection 4 58 Starting Medi gordon mg on [facility] Branch 05/26/22 at 2030, Until Discontinu ed, Routine, Nausea and Vomiting (N/V) ondansetron 3-0 Yes 4mg 4 mg, Slow Univers (ZOFRAN 4-14 IV Push, ity of (PF)) 01:30: Q6HPRN, [place] injection 4 58 Starting Medi gordon mg on [facility] Branch 05/26/22 at 2030, Until Discontinu ed, Routine, Nausea and Vomiting (N/V) ondansetron 3-0 Yes 4mg 4 mg, Slow Univers (ZOFRAN 4-14 IV Push, ity of (PF)) 01:30: Q6HPRN, [place] injection 4 58 Starting Medi gordon mg on [facility] Branch 05/26/22 at 2030, Until Discontinu ed, Routine, Nausea and Vomiting (N/V) morpHINE (2 2022-2022- No 4mg 4 mg, Slow Univers mg/mL) 05-27-15 IV Push, ity of injection 4 01:30: 01:29 Q4HPRN, [place] mg 55 :55 Starting Medical on [place] Branch 05/26/22 at 2030, Until 05/27/22 at 2029, Routine, Pain (scale 7-10) methocarbam 2022-0 2022- No 500mg 500 mg, U nivers oL 05-27 Oral, ity of (ROBAXIN) 00:00: 23:10 ONCE, 1 [place] tablet 500 00 :00 dose, On Medic al mg [facility] Branch 05/26/22 at 1900, Routine traMADoL 2022- No 50mg 50 mg, Univer s (ULTRAM) 05-26 Oral, ity of tablet 50 23:45: 23:10 ONCE, 1 [place] mg 00 :00 dose, On [facility] 05/26/22 at 1845, Routine gabapentin 2022- No 300mg 300 mg, Un mary (NEURONTIN) 05-26 Oral, ity of capsule 300 23:00: 23:10 ONCE, 1 [place] mg 00 :00 dose, On [facility] 05/26/22 at 1800, MICHELLE methylpredn No 125mg 125 mg, U nivers isolone sod 05-26 Slow IV ity of succ 22:15: 21:28 Push, [place] (SOLU-MEDRO 00 :00 ONCE, 1 Medic al L) dose, On Branch injection [place] 125 mg 05/26/22 at 1715, IMCHELLE furosemide 2022- No 40mg 40 mg, IV U nivers (LASIX) 05-26 Push, ity of injection 21:15: 21:19 ONCE, 1 [place] 40 mg 00 :00 dose, On [facility] 05/26/22 at 1615, MICHELLE ketorolac 2022- No 30mg 30 mg, Unive rs (TORADOL) 05-23 Intramuscu ity of injection 23:00: 22:35 [place], ONCE, [place] 30 mg 00 :00 1 dose, On [facility] 05/23/22 at 1800, Routine diazePAM 2022- No 2.5mg 2.5 mg, Univ ers (VALIUM) 05-23 Oral, ity of tablet 2.5 22:45: 23:09 ONCE, 1 [place] mg 00 :00 dose, On [facility] 05/23/22 at 1745, MICHELLE HYDROcodone 2022- No 1{tbl} 1 tablet, Univers -acetaminop 05-23 Oral, ONCE i ty of hen (NORCO) 11:45: 11:00 NOW, 1 [place] 10-325 mg 00 :00 dose, On Medica l tablet 1 [place] [facility] Branch tablet 05/23/22 at 0645, MICHELLE gabapentin 2022-0 2022- No 600mg 600 mg, Un mary (NEURONTIN) 05-23 Oral, ity of capsule 600 09:00: 09:09 ONCE, 1 [place] mg 00 :00 dose, On Medical [facility] Branch 05/23/22 at 0400, MICHELLE dexamethaso 2022-0 2022- No 10mg 10 mg, Uni vers ne sod phos 05-23 Intramuscu i ty of PF 09:00: 09:07 lar, ONCE, [place] injection 00 :00 1 dose, On Medi gordon 10 mg [facility] Branch 05/23/22 at 0400, 1 mL gabapentin 2022-0 Yes [id number] 300mg Take 1 Univers 300 mg 4-10 capsule by ity of capsule 00:00: mouth in [place] [address] the [facility] and 1 capsule at noon and 1 capsule in the evening. gabapentin 2023-0 Yes [id number] 300mg Take 1 Univers 300 mg 4-10 capsule by ity of capsule 00:00: mouth in [place] [address] the [facility] and 1 capsule at noon and 1 capsule in the evening. gabapentin 2023-0 Yes [id number] 300mg Take 1 Univers 300 mg 4-10 capsule by ity of capsule 00:00: mouth in [place] [address] the [facility] and 1 capsule at noon and 1 capsule in the evening. ketorolac 2023-0 Yes [id number] 10mg Take 1 U nivers 10 mg 4-10 tablet by ity of tablet 00:00: mouth [place] 00 every 6 Medical (six) Branch hours as needed for Pain (scale 7-10). gabapentin 2023-0 Yes [id number] 300mg Take 1 Univers 300 mg 4-10 capsule by ity of capsule 00:00: mouth in [place] [address] the [facility] morning [place] and 1 capsule at noon and 1 capsule in the evening. ketorolac 2023-0 Yes [id number] 10mg Take 1 U nivers 10 mg 4-10 tablet by ity of tablet 00:00: mouth [place] 00 every 6 Medical (six) Branch hours as needed for Pain (scale 7-10). gabapentin 2023-0 Yes [id number] 300mg Take 1 Univers 300 mg 4-10 capsule by ity of capsule 00:00: mouth in [place] 00 the Medical morning Branch and 1 capsule at noon and 1 capsule in the evening. ketorolac 2023-0 Yes [id number] 10mg Take 1 U nivers 10 mg 4-10 tablet by ity of tablet 00:00: mouth [place] 00 every 6 Medical (six) Branch hours as needed for Pain (scale 7-10). gabapentin 2023-0 Yes [id number] 300mg Take 1 Univers 300 mg 4-10 capsule by ity of capsule 00:00: mouth in [place] 00 the Medical morning Branch and 1 capsule at noon and 1 capsule in the evening. ketorolac 2023-0 Yes [id number] 10mg Take 1 U nivers 10 mg 4-10 tablet by ity of tablet 00:00: mouth [place] 00 every 6 Medical (six) Branch hours as needed for Pain (scale 7-10). gabapentin 2023-0 Yes [id number] 300mg Take 1 Univers 300 mg 4-10 capsule by ity of capsule 00:00: mouth in [place] 00 the Medical morning Branch and 1 capsule at noon and 1 capsule in the evening. ketorolac 2023-0 Yes [id number] 10mg Take 1 U nivers 10 mg 4-10 tablet by ity of tablet 00:00: mouth [place] 00 every 6 Medical (six) Branch hours as needed for Pain (scale 7-10). gabapentin 2023-0 Yes [id number] 300mg Take 1 Univers 300 mg 4-10 capsule by ity of capsule 00:00: mouth in [place] 00 the Medical morning Branch and 1 capsule at noon and 1 capsule in the evening. ketorolac 2023-0 Yes [id number] 10mg Take 1 U nivers 10 mg 4-10 tablet by ity of tablet 00:00: mouth [place] 00 every 6 Medical (six) Branch hours as needed for Pain (scale 7-10). gabapentin 2023-0 2023- No [id number] 300mg Take 1 Univers 300 mg 4-10 04-25 capsule by ity of capsule 00:00: 00:00 mouth in [place] 00 :00 the Medical morning Branch and 1 capsule at noon and 1 capsule in the evening. methocarbam 2022- No [id number] 500mg Take 1 Univers oL 500 mg 4-10 -25 tablet by ity of tablet 00:00: 00:00 mouth 4 [place] 00 :00 (four) Medical times Branch daily for 7 days. ketorolac 2022-2022- No [id number] 10mg Take 1 Univers 10 mg 4-10 -25 tablet by ity of tablet 00:00: 00:00 mouth [place] 00 :00 every 6 Medical (six) Branch hours as needed for Pain (scale 7-10). methocarbam 2022- Yes [id number] 500mg Take 1 Univers oL 500 mg 4-11 16-18 tablet by ity of tablet 00:00: 04:59 mouth 4 [place] 00 :00 ([facility]) Medical times Branch daily for 7 days. methocarbam 2022- Yes [id number] 500mg Take 1 Univers oL 500 mg 4-10 -18 tablet by ity of tablet 00:00: 04:59 mouth 4 [place] 00 :00 ([facility]) Medical times Branch daily for 7 days. methocarbam 2022- Yes [id number] 500mg Take 1 Univers oL 500 mg 4-10 -18 tablet by ity of tablet 00:00: 04:59 mouth 4 [place] 00 :00 ([facility]) Medical times Branch daily for 7 days. methocarbam 2022- No [id number] 500mg Take 1 Univers oL 500 mg 4-11 16-18 tablet by ity of tablet 00:00: 04:59 mouth 4 [place] 00 :00 ([facility]) Medical times Branch daily for 7 days. methocarbam 2022-0 2022- No [id number] 500mg Take 1 Univers oL 500 mg 4-10 -18 tablet by ity of tablet 00:00: 04:59 mouth 4 [place] 00 :00 ([facility]) Medical times Branch daily for 7 days. mirtazapine 2022-0 Yes [id number] 45mg Take 1 Univers 45 mg 2-23 tablet by ity of tablet 00:00: mouth at [place] 00 bedtime. Medical Branch mirtazapine 3-0 Yes [id number] 45mg Take 1 Univers 45 mg 2-23 tablet by ity of tablet 00:00: mouth at [place] [address] bedtime. Medical Branch mirtazapine 2022-0 Yes [id number] 45mg Take 1 Univers 45 mg 2-23 tablet by ity of tablet 00:00: mouth at [place] [address] bedtime. Medical Branch mirtazapine 2022-0 Yes [id number] 45mg Take 1 Univers 45 mg 2-23 tablet by ity of tablet 00:00: mouth at [place] [address] bedtime. Medical Branch mirtazapine 2022-0 Yes [id number] 45mg Take 1 Univers 45 mg 2-23 tablet by ity of tablet 00:00: mouth at [place] [address] bedtime. Medical Branch mirtazapine 2022-0 Yes [id number] 45mg Take 1 Univers 45 mg 2-23 tablet by ity of tablet 00:00: mouth at [place] [address] bedtime. Medical Branch mirtazapine 2022-0 Yes [id number] 45mg Take 1 Univers 45 mg 2-23 tablet by ity of tablet 00:00: mouth at [place] [address] bedtime. Medical Branch mirtazapine 2022-0 Yes [id number] 45mg Take 1 Univers 45 mg 2-23 tablet by ity of tablet 00:00: mouth at [place] [address] bedtime. Medical Branch mirtazapine 2022-0 Yes [id number] 45mg Take 1 Univers 45 mg 2-23 tablet by ity of tablet 00:00: mouth at [place] [address] bedtime. Medical Branch mirtazapine 2022-0 Yes [id number] 45mg Take 1 Univers 45 mg 2-23 tablet by ity of tablet 00:00: mouth at [place] [address] bedtime. Medical Branch mirtazapine 2022-0 Yes [id number] 45mg Take 1 Univers 45 mg 2-23 tablet by ity of tablet 00:00: mouth at [place] [address] bedtime. Medical Branch mirtazapine 2022-0 Yes [id number] 45mg Take 1 Univers 45 mg 2-23 tablet by ity of tablet 00:00: mouth at [place] [address] bedtime. Medical Branch mirtazapine 2022-0 Yes [id number] 45mg Take 1 Univers 45 mg 2-23 tablet by ity of tablet 00:00: mouth at [place] [address] bedtime. Medical Branch mirtazapine 2022-0 Yes [id number] 45mg Take 1 Univers 45 mg 2-23 tablet by ity of tablet 00:00: mouth at [place] [address] bedtime. Medical Branch mirtazapine 2022-0 Yes [id number] 45mg Take 1 Univers 45 mg 2-23 tablet by ity of tablet 00:00: mouth at [place] [address] bedtime. Medical Branch mirtazapine 2022-0 Yes [id number] 45mg Take 1 [facility] 45 mg 2-23 tablet by ity of tablet 00:00: mouth at [place] [address] bedtime. Medical Branch mirtazapine 2022-0 Yes [id number] 45mg Take 1 Univers 45 mg 2-23 tablet by ity of tablet 00:00: mouth at [place] [address] bedtime. Medical Branch mirtazapine 2022-0 Yes [id number] 45mg Take 1 Univers 45 mg 2-23 tablet by ity of tablet 00:00: mouth at [place] [address] bedtime. Medical Branch mirtazapine 2022-0 Yes [id number] 45mg Take 1 Univers 45 mg 2-23 tablet by ity of tablet 00:00: mouth at [place] [address] bedtime. Medical Branch mirtazapine 2022-0 Yes [id number] 45mg Take 1 Univers 45 mg 2-23 tablet by ity of tablet 00:00: mouth at [place] [address] bedtime. Medical Branch mirtazapine 2022-0 Yes [id number] 45mg Take 1 [facility] 45 mg 2-23 tablet by ity of tablet 00:00: mouth at [place] [address] bedtime. Medical Branch mirtazapine 2022-0 Yes [id number] 45mg Take 1 Univers 45 mg 2-23 tablet by ity of tablet 00:00: mouth at [place] [address] bedtime. Medical Branch mirtazapine 2022-0 Yes [id number] 45mg Take 1 [facility] 45 mg 2-23 tablet by ity of tablet 00:00: mouth at [place] [address] bedtime. Medical Branch mirtazapine 2022-0 Yes [id number] 45mg Take 1 Univers 45 mg 2-23 tablet by ity of tablet 00:00: mouth at [place] [address] bedtime. Medical Branch mirtazapine 2022-0 Yes [id number] 45mg Take 1 [facility] 45 mg 2-23 tablet by ity of tablet 00:00: mouth at [place] [address] bedtime. Medical Branch mirtazapine 2022-0 2023- No [id number] 45mg Take 1 Univers 45 mg 2-23 04-25 tablet by ity of tablet 00:00: 00:00 mouth at [place] 00 :00 bedtime. Medical Branch mirtazapine 2021-02 Yes [id number] 30mg Take 1 Univers 30 mg 2-21 tablet by ity of tablet 00:00: mouth at [place] [address] bedtime. Medical Branch mirtazapine 2021-02 Yes [id number] 30mg Take 1 Univers 30 mg 2-21 tablet by ity of tablet 00:00: mouth at [place] [address] bedtime. Medical Branch mirtazapine 2021-02 Yes [id number] 30mg Take 1 Univers 30 mg 2-21 tablet by ity of tablet 00:00: mouth at [place] [address] bedtime. Medical Branch mirtazapine 2021-02 Yes [id number] 30mg Take 1 Univers 30 mg 2-21 tablet by ity of tablet 00:00: mouth at [place] [address] bedtime. Medical Branch mirtazapine 2021-02 Yes [id number] 30mg Take 1 Univers 30 mg 2-21 tablet by ity of tablet 00:00: mouth at [place] [address] bedtime. Medical Branch mirtazapine 2021-02 Yes [id number] 30mg Take 1 Univers 30 mg 2-21 tablet by ity of tablet 00:00: mouth at [place] [address] bedtime. Medical Branch mirtazapine 2021-02 Yes [id number] 30mg Take 1 [facility] 30 mg 2-21 tablet by ity of tablet 00:00: mouth at [place] [address] bedtime. Medical Branch mirtazapine 2021-02 Yes [id number] 30mg Take 1 Univers 30 mg 2-21 tablet by ity of tablet 00:00: mouth at [place] [address] bedtime. Medical Branch mirtazapine 2021-02 Yes [id number] 30mg Take 1 Univers 30 mg 2-21 tablet by ity of tablet 00:00: mouth at [place] [address] bedtime. [facility] Branch mirtazapine 2021-02- No [id number] 30mg Take 1 Univers 30 mg 2-21 02-23 tablet by ity of tablet 00:00: 00:00 mouth at [place] 00 :00 bedtime. [facility] Branch mirtazapine 2021-02- No [id number] 30mg Take 1 Univers 30 mg 2-21 02-23 tablet by ity of tablet 00:00: 00:00 mouth at [place] 00 :00 bedtime. Medical Branch traMADoL 50 2021-02 Yes 50mg Take 1 Univ ers mg tablet 2-08 tablet by ity o f 00:00: mouth in [place] 00 the Medical morning Branch and 1 tablet at noon and 1 tablet in the evening. traMADoL 50 2021-02 Yes 50mg Take 1 Univ ers mg tablet 2-08 tablet by ity o f 00:00: mouth in [place] 00 the Medical morning Branch and 1 tablet at noon and 1 tablet in the evening. traMADoL 50 2021-02 Yes 50mg Take 1 Univ ers mg tablet 2-08 tablet by ity o f 00:00: mouth in [place] 00 the Medical morning Branch and 1 tablet at noon and 1 tablet in the evening. traMADoL 50 2021-02 Yes 50mg Take 1 Univ ers mg tablet 2-08 tablet by ity o f 00:00: mouth in [place] 00 the Medical morning Branch and 1 tablet at noon and 1 tablet in the evening. traMADoL 50 2021-02 Yes 50mg Take 1 Univ ers mg tablet 2-08 tablet by ity o f 00:00: mouth in [place] 00 the Medical morning Branch and 1 tablet at noon and 1 tablet in the evening. [email or web address] 50 2021-02 Yes 50mg Take 1 Univ ers mg tablet 2-08 tablet by ity o f 00:00: mouth in [place] 00 the Medical morning Branch and 1 tablet at noon and 1 tablet in the evening. [email or web address] 50 2021-02 Yes 50mg Take 1 Univ ers mg tablet 2-08 tablet by ity o f 00:00: mouth in [place] 00 the Medical morning Branch and 1 tablet at noon and 1 tablet in the evening. traMADoL 50 2021-02 Yes 50mg Take 1 Univ ers mg tablet 2-08 tablet by ity o f 00:00: mouth in [place] 00 the Medical morning Branch and 1 tablet at noon and 1 tablet in the evening. traMADoL 50 2021- Yes 50mg Take 1 Univ ers mg tablet 2-08 tablet by ity o f 00:00: mouth in [place] 00 the Medical morning Branch and 1 tablet at noon and 1 tablet in the evening. [email or web address] 50 2021- Yes 50mg Take 1 Univ ers mg tablet 2-08 tablet by ity o f 00:00: mouth in [place] 00 the Medical morning Branch and 1 tablet at noon and 1 tablet in the evening. traMADoL 50 2021-02 Yes 50mg Take 1 Univ ers mg tablet 2-08 tablet by ity o f 00:00: mouth in [place] 00 the Medical morning Branch and 1 tablet at noon and 1 tablet in the evening. traMADoL 50 2021-02 Yes 50mg Take 1 Univ ers mg tablet 2-08 tablet by ity o f 00:00: mouth in [place] 00 the Medical morning Branch and 1 tablet at noon and 1 tablet in the evening. traMADoL 50 2021-02 Yes 50mg Take 1 Univ ers mg tablet 2-08 tablet by ity o f 00:00: mouth in [place] [address] the Medical morning Branch and 1 tablet at noon and 1 tablet in the evening. traMADoL 50 2021-02 Yes 50mg Take 1 Univ ers mg tablet 2-08 tablet by ity o f 00:00: mouth in [place] [address] the Medical morning Branch and 1 tablet at noon and 1 tablet in the evening. traMADoL 50 2021-02 Yes 50mg Take 1 Univ ers mg tablet 2-08 tablet by ity o f 00:00: mouth in [place] [address] the Medical morning Branch and 1 tablet at noon and 1 tablet in the evening. traMADoL 50 2021-02 Yes 50mg Take 1 Univ ers mg tablet 2-08 tablet by ity o f 00:00: mouth in [place] [address] the Medical morning Branch and 1 tablet at noon and 1 tablet in the evening. traMADoL 50 2021-02 Yes 50mg Take 1 Univ ers mg tablet 2-08 tablet by ity o f 00:00: mouth in [place] [address] the Medical morning Branch and 1 tablet at noon and 1 tablet in the evening. traMADoL 50 2021-02 Yes 50mg Take 1 Univ ers mg tablet 2-08 tablet by ity o f 00:00: mouth in [place] [address] the Medical morning Branch and 1 tablet at noon and 1 tablet in the evening. traMADoL 50 2021-02 Yes 50mg Take 50 mg Univers mg tablet 2-08 by mouth ity of 00:00: in the [place] [address] morning Medical and 50 mg Branch at noon and 50 mg in the evening. traMADoL 50 2021-02 Yes 50mg Take 50 mg Univers mg tablet 2-08 by mouth ity of 00:00: in the [place] 00 morning Medical and 50 mg Branch at noon and 50 mg in the evening. traMADoL 50 2021-02 Yes 50mg Take 50 mg Univers mg tablet 2-08 by mouth ity of 00:00: in the [place] 00 morning Medical and 50 mg Branch at noon and 50 mg in the evening. traMADoL 50 2021-02 Yes 50mg Take 50 mg Univers mg tablet 2-08 by mouth ity of 00:00: in the [place] morning Medical and 50 mg Branch at noon and 50 mg in the evening. traMADoL 50 2021-02 Yes 50mg Take 50 mg Univers mg tablet 2-08 by mouth ity of 00:00: in the [place] morning Medical and 50 mg Branch at noon and 50 mg in the evening. traMADoL 50 2021-02 Yes 50mg Take 50 mg Univers mg tablet 2-08 by mouth ity of 00:00: in the [place] morning Medical and 50 mg Branch at noon and 50 mg in the evening. traMADoL 50 2021-02 Yes 50mg Take 50 mg Univers mg tablet 2-08 by mouth ity of 00:00: in the [place] morning Medical and 50 mg Branch at noon and 50 mg in the evening. traMADoL 50 2021-02 Yes 50mg Take 50 mg Univers mg tablet 2-08 by mouth ity of 00:00: in the [place] morning Medical and 50 mg Branch at noon and 50 mg in the evening. traMADoL 50 2021-02 Yes 50mg Take 50 mg [facility] mg tablet 2-08 by mouth ity of 00:00: in the [place] morning Medical and 50 mg Branch at noon and 50 mg in the evening. traMADoL 50 2021-02 Yes 50mg Take 50 mg [facility] mg tablet 2-08 by mouth ity of 00:00: in the [place] morning Medical and 50 mg Branch at noon and 50 mg in the evening. traMADoL 50 2021-02 Yes 50mg Take 50 mg [facility] mg tablet 2-08 by mouth ity of 00:00: in the [place] [address] morning Medical and 50 mg Branch at noon and 50 mg in the evening. traMADoL 50 2021- Yes 50mg Take 50 mg Univers mg tablet 2-08 by mouth ity of 00:00: in the [place] [address] morning Medical and 50 mg Branch at noon and 50 mg in the evening. traMADoL 50 2021-02 Yes 50mg Take 50 mg Univers mg tablet 2-08 by mouth ity of 00:00: in the [place] 00 morning Medical and 50 mg Branch at noon and 50 mg in the evening. traMADoL 50 2021-02 Yes 50mg Take 50 mg Univers mg tablet 2-08 by mouth ity of 00:00: in the [place] 00 morning Medical and 50 mg Branch at noon and 50 mg in the evening. traMADoL 50 2021-02 Yes 50mg Take 1 Univ ers mg tablet 2-08 tablet by ity o f 00:00: mouth in [place] 00 the Medical morning Branch and 1 tablet at noon and 1 tablet in the evening. traMADoL 50 2021-02 Yes 50mg Take 1 Univ ers mg tablet 2-08 tablet by ity o f 00:00: mouth in [place] 00 the Medical morning Branch and 1 tablet at noon and 1 tablet in the evening. traMADoL 50 2021-02 Yes 50mg Take 1 Univ ers mg tablet 2-08 tablet by ity o f 00:00: mouth in [place] 00 the Medical morning Branch and 1 tablet at noon and 1 tablet in the evening. [email or web address] 50 2021-02 No 50mg Take 1 Uni vers mg tablet 2-08 04-25 tablet by ity of 00:00: 00:00 mouth in [place] 00 :00 the Medical morning Branch and 1 tablet at noon and 1 tablet in the evening. mirtazapine 2021-02 Yes [id number] 15mg Take 1 Univers 15 mg 1-21 tablet by ity of tablet 00:00: mouth at [place] [address] bedtime. Medical Branch mirtazapine 2021-02 Yes [id number] 15mg Take 1 [facility] 15 mg 1-21 tablet by ity of tablet 00:00: mouth at [place] [address] bedtime. Medical Branch mirtazapine 2021-02 Yes [id number] 15mg Take 1 [facility] 15 mg 1-21 tablet by ity of tablet 00:00: mouth at [place] [address] bedtime. Medical Branch mirtazapine 2021-02- No [id number] 15mg Take 1 [facility] 15 mg 1-21 12-21 tablet by ity of tablet 00:00: 00:00 mouth at [place] 00 :00 bedtime. [facility] Branch mirtazapine 2021-02- No [id number] 15mg Take 1 Univers 15 mg 1-21 12-21 tablet by ity of tablet 00:00: 00:00 mouth at [place] 00 :00 bedtime. Medical Branch vortioxetin 2021-02 Yes [id number] 5mg Take 1 Univers e 0-20 tablet by ity of (TRINTELLIX 00:00: mouth in [place] ) 5 mg Tab 00 the Medical morning. Branch vortioxetin 2021-02 Yes [id number] 5mg Take 1 Univers e 0-20 tablet by ity of (TRINTELLIX 00:00: mouth in [place] ) 5 mg Tab 00 the Medical morning. Branch vortioxetin 2021-02 Yes [id number] 5mg Take 1 Univers e 0-20 tablet by ity of (TRINTELLIX 00:00: mouth in [place] ) 5 mg Tab 00 the Medical morning. Branch vortioxetin 2021-02 Yes [id number] 5mg Take 1 Univers e 0-20 tablet by ity of (TRINTELLIX 00:00: mouth in [place] ) 5 mg Tab 00 the Medical morning. Branch vortioxetin 2021-02 Yes [id number] 5mg Take 1 Univers e 0-20 tablet by ity of (TRINTELLIX 00:00: mouth in [place] ) 5 mg Tab 00 the Medical morning. Branch vortioxetin 2021-02 Yes [id number] 5mg Take 1 Univers e 0-20 tablet by ity of (TRINTELLIX 00:00: mouth in [place] ) 5 mg Tab 00 the Medical morning. Branch vortioxetin 2021-02- No [id number] 5mg Take 1 Univers e 0-20 11-21 tablet by ity of (TRINTELLIX 00:00: 00:00 mouth in [place] ) 5 mg Tab 00 :00 the Medical morning. Branch vortioxetin 2021-02- No [id number] 5mg Take 1 Univers e 0-20 11-21 tablet by ity of (TRINTELLIX 00:00: 00:00 mouth in [place] ) 5 mg Tab 00 :00 the Medical morning. Branch DULoxetine Yes [id number] 20mg Take 1 [facility] 20 mg 9-20 capsule by ity of capsule 00:00: mouth in [place] 00 the Medical morning. Branch DULoxetine 2021-0 Yes [id number] 20mg Take 1 [facility] 20 mg 9-20 capsule by ity of capsule 00:00: mouth in [place] 00 the Medical morning. Branch DULoxetine 2021-0 Yes [id number] 20mg Take 1 [facility] 20 mg 9-20 capsule by ity of capsule 00:00: mouth in [place] 00 the Medical morning. Branch DULoxetine 2021-0 Yes [id number] 20mg Take 1 [facility] 20 mg 9-20 capsule by ity of capsule 00:00: mouth in [place] 00 the Medical morning. Branch DULoxetine 2021-0 Yes [id number] 20mg Take 1 [facility] 20 mg 9-20 capsule by ity of capsule 00:00: mouth in [place] 00 the Medical morning. Branch DULoxetine 2021-0 2- No [id number] 20mg Take 1 [facility] 20 mg 9-20 10-20 capsule by ity of capsule 00:00: 00:00 mouth in [place] 00 :00 the Medical morning. Branch DULoxetine 2021-0 2- No [id number] 20mg Take 1 [facility] 20 mg 9-20 10-20 capsule by ity of capsule 00:00: 00:00 mouth in [place] 00 :00 the Medical morning. Branch gabapentin 2021-0 Yes [id number] 300mg Take 1 [facility] 300 mg 8-23 capsule by ity of capsule 00:00: mouth at [place] [address] bedtime. Medical Branch gabapentin 2-0 Yes [id number] 300mg Take 1 [facility] 300 mg 8-23 capsule by ity of capsule 00:00: mouth at [place] [address] bedtime. Medical Branch gabapentin 2-0 Yes [id number] 300mg Take 1 [facility] 300 mg 8-23 capsule by ity of capsule 00:00: mouth at [place] 00 bedtime. Medical Branch gabapentin 2-0 2022- No [id number] 300mg Take 1 [facility] 300 mg 8-23 09-20 capsule by ity of capsule 00:00: 00:00 mouth at [place] 00 :00 bedtime. Medical Branch gabapentin 2022-0 2022- No [id number] 300mg Take 1 [facility] 300 mg 8-23 09-20 capsule by ity of capsule 00:00: 00:00 mouth at [place] 00 :00 bedtime. Medical [facility] mirtazapine 2022-0 2022- No 30mg Take 30 mg [facility] 30 mg 8-08 08-23 by mouth ity of tablet 00:00: 00:00 in the [place] 00 :00 morning. Medical Branch mirtazapine 2021-0 202- No 30mg Take 30 mg [facility] 30 mg 09-20 by mouth ity of tablet 00:00: 00:00 in the [place] 00 :00 morning. Medical Branch sertraline 2020-0 Yes 50mg QD Take 50 mg M ethodi (ZOLOFT) 50 9-[address] [facility] tablet 20:45: [facility] s[facility] 2020-0 Yes 50mg QD Take 50 mg [facility]i ([facility]OLOFT) 50 9-[address] [facility] tablet 20:45: daily[facility] sertraline 2020-0 Yes 50mg QD Take 50 mg [facility] ethodi ([facility]OLOFT) 50 9-[address] MG tablet 20:45: daily. [facility] sertraline 2020-0 Yes 50mg QD Take 50 mg M ethodi (ZOLOFT) 50 9-[address] MG tablet 20:45: daily. [facility] Saline No Notes: [facility] Flush 0.9% 6-09 (Same as: l 18:36: [place] 00 Posiflush) Saline No Notes: [facility] Flush 0.9% 6-09 (Same as: l 18:36: [facility] [place] 00 Posiflush) Saline No Notes: [facility] Flush 0.9% 6-09 (Same as: l 18:36: [facility] [place] 00 Posiflush) Saline No Notes: [facility] Flush 0.9% 6-09 (Same as: l 18:36: [facility] [place] 00 Posiflush) Saline No Notes: [facility]oria Flush 0.9% 6-09 (Same as: l 18:36: BD [place] 00 Posiflush) Saline No Notes: [facility] Flush 0.9% 6-09 (Same as: l 18:36: BD [place] 00 Posiflush) Saline No Notes: [facility] Flush 0.9% 6-09 (Same as: l 18:36: [facility] [place] 00 Posiflush) Saline No Notes: Memoria Flush 0.9% 6-09 (Same as: l 18:36: [facility] [place] 00 Posiflush) Saline No Notes: [facility] Flush 0.9% 6-09 (Same as: l 18:36: [facility] [place] 00 Posiflush) Saline No Notes: [facility]oria Flush 0.9% 6-09 (Same as: l 18:36: BD [place] 00 Posiflush) Saline No Notes: [facility] Flush 0.9% 6-09 (Same as: l 18:36: [facility] [place] 00 Posiflush) Saline No Notes: [facility]oria Flush 0.9% 6-09 (Same as: l 18:36: [facility] [place] 00 Posiflush) Saline No Notes: [facility] Flush 0.9% 6-09 (Same as: l 18:36: [facility] [place] 00 Posiflush) Saline No Notes: [facility] Flush 0.9% 6-09 (Same as: l 18:36: BD [place] 00 Posiflush) Saline No Notes: [facility] Flush 0.9% 6-09 (Same as: l 18:36: BD [place] 00 Posiflush) Saline No Notes: [facility] Flush 0.9% 6-09 (Same as: l 18:36: BD [place] 00 Posiflush) Saline No Notes: [facility] Flush 0.9% 6-09 (Same as: l 18:36: [facility] [place] 00 Posiflush) Saline No Notes: Mem[facility] Flush 0.9% 6-09 (Same as: l 18:36: BD [place] 00 Posiflush) Saline No Notes: [facility] Flush 0.9% 6-09 (Same as: l 18:36: BD [place] 00 Posiflush) Saline No Notes: [facility] Flush 0.9% 6-09 (Same as: l 18:36: BD [place] 00 Posiflush) Vital Signs Vital Name Observation Time Observation Value Comments Source Systolic blood 2022-06-16 16:05:00 112 mm[Hg] Univer [facility] Diastolic blood 2022-06-16 16:05:00 72 mm[Hg] Unive rsity of pressure [place] [facility] Heart rate 2022-06-16 16:05:00 90 /min [facility] [place] [facility] Body temperature 2022-06-16 16:05:00 36.72 Nita [facility] [place] [facility] Respiratory rate 2022-06-16 16:05:00 16 /min [facility] [place] [facility] Body height 2022-06-16 16:05:00 167.6 cm [facility] [place] [facility] Body weight 2022-06-16 16:05:00 91.173 kg [facility] [place] [facility] BMI 2022-06-16 16:05:00 32.44 kg/m2 [facility] [place] [facility] Oxygen saturation in 2022-06-16 16:05:00 100 /min [facility] of Arterial blood by [place] [employer] gordon Pulse oximetry Branch Systolic blood 2022-06-07 18:25:00 140 mm[Hg] Univer sity of pressure [place] [facility] Diastolic blood 2022-06-07 18:25:00 74 mm[Hg] Unive rsity of pressure [place] [facility] Heart rate 2022-06-07 18:25:00 70 /min [facility] [place] [facility] Body temperature 2022-06-07 18:25:00 36.44 Nita [facility] [place] [facility] Respiratory rate 2022-06-07 18:25:00 20 /min [facility] [place] [facility] Oxygen saturation in 2022-06-07 18:25:00 100 /min [facility] of Arterial blood by [place] [employer] gordon Pulse oximetry Branch Body weight 2022-05-27 08:00:00 86.456 kg [facility] [place] [facility] BMI 2022-05-27 08:00:00 30.76 kg/m2 [facility] [place] [facility] Body height 2022-05-27 02:20:00 167.6 cm [facility] [place] [facility] Systolic blood 2022-06-03 10:48:00 136 mm[Hg] Univer sity of pressure [place] [facility] Diastolic blood 2022-06-03 10:48:00 67 mm[Hg] Unive rsity of pressure [place] [facility] Heart rate 2022-06-03 10:48:00 80 /min [facility] [place] [facility] Body temperature 2022-06-03 10:48:00 36.28 Nita [facility] [place] [facility] Respiratory rate 2022-06-03 10:48:00 18 /min [facility] [place] [facility] Oxygen saturation in 2022-06-03 10:48:00 97 /min [facility] Pulse oximetry Branch Body weight 2022-05-27 08:00:00 86.456 kg [facility] [place] [facility] BMI 2022-05-27 08:00:00 30.76 kg/m2 [facility] [place] [facility] Body height 2022-05-27 02:20:00 167.6 cm [facility] [place] [facility] Systolic blood 2022-05-31 01:00:00 116 mm[Hg] Univer sity of pressure [place] [facility] Diastolic blood 2022-05-31 01:00:00 68 mm[Hg] Unive rsity of pressure [place] [facility] Heart rate 2022-05-31 01:00:00 79 /min [facility] [place] [facility] Body temperature 2022-05-31 01:00:00 37.78 Nita [facility] [place] [facility] Respiratory rate 2022-05-31 01:00:00 14 /min [facility] [place] [facility] Oxygen saturation in 2022-05-31 01:00:00 96 /min [facility] Pulse oximetry Branch Body weight 2022-05-27 08:00:00 86.456 kg [facility] [place] [facility] BMI 2022-05-27 08:00:00 30.76 kg/m2 [facility] [place] [facility] Body height 2022-05-27 02:20:00 167.6 cm [facility] [place] [facility] Systolic blood 2022-05-29 15:15:00 138 mm[Hg] Univer sity of pressure [place] [facility] Diastolic blood 2022-05-29 15:15:00 81 mm[Hg] Unive rsity of pressure [place] [facility] Heart rate 2022-05-29 15:15:00 62 /min [facility] [place] [facility] Body temperature 2022-05-29 15:15:00 36.39 Nita [facility] [place] [facility] Respiratory rate 2022-05-29 15:15:00 18 /min [facility] [place] [facility] Oxygen saturation in 2022-05-29 15:15:00 100 /min [facility] of Arterial blood by [facility] gordon Pulse oximetry Branch Body weight 2022-05-27 08:00:00 86.456 kg [facility] [place] [facility] BMI 2022-05-27 08:00:00 30.76 kg/m2 [facility] [place] [facility] Body height 2022-05-27 02:20:00 167.6 cm [facility] [place] [facility] Systolic blood 2022-05-23 21:38:00 137 mm[Hg] Univer sity of pressure [place] [facility] Diastolic blood 2022-05-23 21:38:00 89 mm[Hg] Unive rsity of pressure [place] [facility] Heart rate 2022-05-23 21:38:00 100 /min [facility] [place] [facility] Body temperature 2022-05-23 21:38:00 36.67 Nita [facility] [place] [facility] Respiratory rate 2022-05-23 21:38:00 20 /min [facility] [place] [facility] Body weight 2022-05-23 21:38:00 81.647 kg [facility] [place] [facility] BMI 2022-05-23 21:38:00 29.05 kg/m2 [facility] [place] [facility] Oxygen saturation in 2022-05-23 21:38:00 100 /min [facility] Pulse oximetry Branch Systolic blood 2022-05-23 10:00:00 144 mm[Hg] Univer sity of pressure [place] [facility] Diastolic blood 2022-05-23 10:00:00 79 mm[Hg] Unive rsity of pressure [place] [facility] Heart rate 2022-05-23 10:00:00 77 /min [facility] [place] [facility] Respiratory rate 2022-05-23 10:00:00 14 /min [facility] [place] [facility] Oxygen saturation in 2022-05-23 10:00:00 96 /min [facility] Pulse oximetry Branch Body temperature 2022-05-23 08:49:00 36.72 Nita [facility] [place] [facility] Body height 2022-05-23 08:49:00 167.6 cm [facility] [place] [facility] Body weight 2022-05-23 08:49:00 81.647 kg [facility] [place] [facility] BMI 2022-05-23 08:49:00 29.05 kg/m2 [facility] [place] [facility] Systolic blood 2022-05-19 14:32:00 153 mm[Hg] Univer sity of pressure [place] [facility] Diastolic blood 2022-05-19 14:32:00 82 mm[Hg] Unive rsity of pressure [place] [facility] Heart rate 2022-05-19 14:31:00 86 /min [facility] [place] [facility] Body temperature 2022-05-19 14:31:00 36.11 Nita [facility] [place] [facility] Body height 2022-05-19 14:31:00 167.6 cm [facility] [place] [facility] Body weight 2022-05-19 14:31:00 87.544 kg [facility] [place] [facility] BMI 2022-05-19 14:31:00 31.15 kg/m2 [facility] [place] [facility] Oxygen saturation in 2022-05-19 14:31:00 97 /min [facility] Pulse oximetry Branch Systolic blood 2022-05-03 14:51:00 136 mm[Hg] Univer sity of pressure [place] [facility] Diastolic blood 2022-05-03 14:51:00 80 mm[Hg] Unive rsity of pressure [place] [facility] Heart rate 2022-05-03 14:51:00 68 /min [facility] [place] [facility] Body height 2022-05-03 14:51:00 167.6 cm [facility] [place] [facility] Body weight 2022-05-03 14:51:00 84.369 kg [facility] [place] [facility] BMI 2022-05-03 14:51:00 30.02 kg/m2 [facility] [place] [facility] Systolic blood 2022-04-13 15:41:00 128 mm[Hg] Univer sity of pressure [place] [facility] Diastolic blood 2022-04-13 15:41:00 88 mm[Hg] Unive rsity of pressure [place] [facility] Heart rate 2022-04-13 15:41:00 88 /min [facility] [place] [facility] Respiratory rate 2022-04-13 15:41:00 18 /min Univ ersity of [facility] Branch Body height 2022-04-13 15:41:00 167.6 cm [facility] [place] [facility] Body weight 2022-04-13 15:41:00 86.047 kg [facility] [place] [facility] BMI 2022-04-13 15:41:00 30.62 kg/m2 Universi ty of [facility] Branch Oxygen saturation in 2022-04-13 15:41:00 96 /min [facility] Pulse oximetry Branch Systolic blood 2022-04-07 16:41:00 162 mm[Hg] Univer sity of pressure [facility] Diastolic blood 2022-04-07 16:41:00 89 mm[Hg] Unive rsity of pressure [place] [facility] Heart rate 2022-04-07 16:41:00 81 /min [facility] [place] [facility] [place] Body weight 2022-04-07 16:39:00 86.183 kg [facility] [place] [facility] [place] BMI 2022-04-07 16:39:00 30.67 kg/m2 Universi ty of [facility] Systolic blood 2022-02-02 15:24:00 133 mm[Hg] Univer sity of pressure [place] [facility] [place] Diastolic blood 2022-02-02 15:24:00 82 mm[Hg] Unive rsity of pressure [place] [facility] Heart rate 2022-02-02 15:24:00 82 /min [facility] [place] [facility] Body height 2022-02-02 15:24:00 167.6 cm [facility] [place] [facility] Body weight 2022-02-02 15:24:00 83.008 kg [facility] [place] [facility] [place] BMI 2022-02-02 15:24:00 29.54 kg/m2 Universi ty of [facility] Systolic blood 2022-01-03 15:07:00 129 mm[Hg] Univer sity of pressure [place] [facility] Diastolic blood 2022-01-03 15:07:00 82 mm[Hg] Unive rsity of pressure [facility] Heart rate 2022-01-03 15:07:00 76 /min [facility] [place] [facility] Body temperature 2022-01-03 15:07:00 36.83 Nita Univ ersity of [facility] Branch Body height 2022-01-03 15:07:00 167.6 cm [facility] [place] [facility] Body weight 2022-01-03 15:07:00 83.462 kg [facility] [place] [facility] BMI 2022-01-03 15:07:00 29.70 kg/m2 [facility] [place] [facility] Systolic blood 2021-12-08 15:22:00 144 mm[Hg] Univer sity of pressure [place] [facility] Diastolic blood 2021-12-08 15:22:00 84 mm[Hg] Unive rsity of pressure [place] [facility] Heart rate 2021-12-08 15:18:00 70 /min [facility] [place] [facility] Body height 2021-12-08 15:18:00 167.6 cm [facility] [place] [facility] Body weight 2021-12-08 15:18:00 83.326 kg [facility] [place] [facility] BMI 2021-12-08 15:18:00 29.65 kg/m2 Universi ty of [facility] Branch Oxygen saturation in 2021-12-08 15:18:00 100 /min [facility] Pulse oximetry Branch Systolic blood 2021-12-02 16:05:00 130 mm[Hg] Univer sity of pressure [place] [facility] Diastolic blood 2021-12-02 16:05:00 78 mm[Hg] Unive rsity of pressure [facility] Branch Heart rate 2021-12-02 16:05:00 61 /min [facility] [place] [facility] Body temperature 2021-12-02 16:05:00 37.22 Nita [facility] [place] [facility] Body height 2021-12-02 16:05:00 167.6 cm [facility] [place] [facility] Body weight 2021-12-02 16:05:00 84.369 kg [facility] [place] [facility] BMI 2021-12-02 16:05:00 30.02 kg/m2 [facility] [place] [facility] Systolic blood 2021-11-02 14:34:00 133 mm[Hg] Univer sity of pressure [place] [facility] Diastolic blood 2021-11-02 14:34:00 79 mm[Hg] Unive rsity of pressure [place] [facility] Heart rate 2021-11-02 14:34:00 80 /min [facility] [place] [facility] Body height 2021-11-02 14:34:00 167.6 cm [facility] [place] [facility] Body weight 2021-11-02 14:34:00 84.823 kg Universi ty of [facility] BMI 2021-11-02 14:34:00 30.18 kg/m2 Universi ty of [facility] Systolic blood 2021-10-05 19:18:00 152 mm[Hg] Univer sity of pressure [facility] Diastolic blood 2021-10-05 19:18:00 87 mm[Hg] Unive rsity of pressure [facility] Heart rate 2021-10-05 19:18:00 83 /min Universi ty of [facility] Body temperature 2021-10-05 19:18:00 37.33 Nita Univ ersity of [facility] Body height 2021-10-05 19:18:00 167.6 cm Universi ty of [facility] Body weight 2021-10-05 19:18:00 86.637 kg Universi ty [facility] BMI 2021-10-05 19:18:00 30.83 kg/m2 Universi ty [facility] Oxygen saturation in 2021-10-05 19:18:00 99 /min [facility] by [facility] Pulse oximetry Branch Initial DRG Weight: 2020-02-15 05:04:52 0.8372 Working DRG Weight: 2020-02-15 05:04:52 0.8372 ARLYN CHARGE Pulse 2020-02-15 05:04:52 Single Pulse Ox Oximetry /min Have you Lost Weight 2020-02-15 05:04:52 No Without Trying in the Past 6 Months? 02 Sat by Pulse 2020-02-15 05:04:52 100 /min Oximetry Body Mass Index 2020-02-15 05:04:52 26.5 Height 2020-02-15 05:04:52 167.64\\S\\66 Pulse Rate 2020-02-15 05:04:52 70 /min Pulse Strength 2020-02-15 05:04:52 Normal /min Respiratory Rate 2020-02-15 05:04:52 20 /min Respiratory Depth 2020-02-15 05:04:52 Normal /min Respiratory Effort 2020-02-15 05:04:52 Spontaneous /min Respiratory Pattern 2020-02-15 05:04:52 Normal /min Temperature 2020-02-15 05:04:52 36.6\\S\\97.9 Weight 2020-02-15 05:04:52 29482\\S\\2627.91 Weight Measurement 2020-02-15 05:04:52 Built in Bedscale Method Initial DRG Weight: 2020-02-10 08:28:02 0.8372 Working DRG Weight: 2020-02-10 08:28:02 0.8372 ARLYN CHARGE Pulse 2020-02-10 08:28:02 Single Pulse Ox Oximetry /min Have you Lost Weight 2020-02-10 08:28:02 No Without Trying in the Past 6 Months? 02 Sat by Pulse 2020-02-10 08:28:02 100 /min Oximetry Body Mass Index 2020-02-10 08:28:02 26.5 Height 2020-02-10 08:28:02 167.64\\S\\66 Pulse Rate 2020-02-10 08:28:02 70 /min Pulse Strength 2020-02-10 08:28:02 Normal /min Respiratory Rate 2020-02-10 08:28:02 20 /min Respiratory Depth 2020-02-10 08:28:02 Normal /min Respiratory Effort 2020-02-10 08:28:02 Spontaneous /min Respiratory Pattern 2020-02-10 08:28:02 Normal /min Temperature 2020-02-10 08:28:02 36.6\\S\\97.9 Weight 2020-02-10 08:28:02 05559\\S\\2627.91 Weight Measurement 2020-02-10 08:28:02 Built in Bedscale Method ARLYN CHARGE Pulse 2020-02-06 14:55:36 Single Pulse Ox Oximetry /min Have you Lost Weight 2020-02-06 14:55:36 No Without Trying in the Past 6 Months? 02 Sat by Pulse 2020-02-06 14:55:36 100 /min Oximetry Body Mass Index 2020-02-06 14:55:36 26.5 Height 2020-02-06 14:55:36 167.64\\S\\66 Pulse Rate 2020-02-06 14:55:36 70 /min Pulse Strength 2020-02-06 14:55:36 Normal /min Respiratory Rate 2020-02-06 14:55:36 20 /min Respiratory Depth 2020-02-06 14:55:36 Normal /min Respiratory Effort 2020-02-06 14:55:36 Spontaneous /min Respiratory Pattern 2020-02-06 14:55:36 Normal /min Temperature 2020-02-06 14:55:36 36.6\\S\\97.9 Weight 2020-02-06 14:55:36 56037\\S\\2627.91 Weight Measurement 2020-02-06 14:55:36 Built in Bedscale Method Initial DRG Weight: 2020-02-06 14:55:36 0.8372 Working DRG Weight: 2020-02-06 14:55:36 0.8372 Working DRG Weight: 2020-02-06 14:55:35 0.8372 Initial DRG Weight: 2020-02-06 14:55:35 0.8372 Initial DRG Weight: 2020-02-06 12:25:52 0.8372 Working DRG Weight: 2020-02-06 12:25:52 0.8372 ARLYN CHARGE Pulse 2020-02-06 12:25:52 Single Pulse Ox Oximetry /min Have you Lost Weight 2020-02-06 12:25:52 No Without Trying in the Past 6 Months? 02 Sat by Pulse 2020-02-06 12:25:52 100 /min Oximetry Body Mass Index 2020-02-06 12:25:52 26.5 Height 2020-02-06 12:25:52 167.64\\S\\66 Pulse Rate 2020-02-06 12:25:52 62 /min Pulse Strength 2020-02-06 12:25:52 Normal /min Respiratory Rate 2020-02-06 12:25:52 18 /min Respiratory Depth 2020-02-06 12:25:52 Normal /min Respiratory Effort 2020-02-06 12:25:52 Spontaneous /min Respiratory Pattern 2020-02-06 12:25:52 Normal /min Temperature 2020-02-06 12:25:52 36.7\\S\\98.1 Weight 2020-02-06 12:25:52 77335\\S\\2627.91 Weight Measurement 2020-02-06 12:25:52 Built in Bedscale Method Initial DRG Weight: 2020-02-04 14:40:56 0.8372 Working DRG Weight: 2020-02-04 14:40:56 0.8372 ARLYN CHARGE Pulse 2020-02-04 14:40:56 Single Pulse Ox Oximetry /min Have you Lost Weight 2020-02-04 14:40:56 No Without Trying in the Past 6 Months? 02 Sat by Pulse 2020-02-04 14:40:56 100 /min Oximetry Body Mass Index 2020-02-04 14:40:56 26.5 Height 2020-02-04 14:40:56 167.64\\S\\66 Pulse Rate 2020-02-04 14:40:56 63 /min Pulse Strength 2020-02-04 14:40:56 Normal /min Respiratory Rate 2020-02-04 14:40:56 18 /min Respiratory Depth 2020-02-04 14:40:56 Normal /min Respiratory Effort 2020-02-04 14:40:56 Spontaneous /min Respiratory Pattern 2020-02-04 14:40:56 Normal /min Temperature 2020-02-04 14:40:56 36.3\\S\\97.3 Weight 2020-02-04 14:40:56 95453\\S\\2627.91 Weight Measurement 2020-02-04 14:40:56 Built in Bedscale Method Initial DRG Weight: 2020-02-04 12:53:01 0.8372 Working DRG Weight: 2020-02-04 12:53:01 0.8372 ARLYN CHARGE Pulse 2020-02-04 12:53:01 Single Pulse Ox Oximetry /min Have you Lost Weight 2020-02-04 12:53:01 No Without Trying in the Past 6 Months? 02 Sat by Pulse 2020-02-04 12:53:01 100 /min Oximetry Body Mass Index 2020-02-04 12:53:01 26.5 Height 2020-02-04 12:53:01 167.64\\S\\66 Pulse Rate 2020-02-04 12:53:01 63 /min Pulse Strength 2020-02-04 12:53:01 Normal /min Respiratory Rate 2020-02-04 12:53:01 18 /min Respiratory Depth 2020-02-04 12:53:01 Normal /min Respiratory Effort 2020-02-04 12:53:01 Spontaneous /min Respiratory Pattern 2020-02-04 12:53:01 Normal /min Temperature 2020-02-04 12:53:01 36.3\\S\\97.3 Weight 2020-02-04 12:53:01 41022\\S\\2627.91 Weight Measurement 2020-02-04 12:53:01 Built in Bedscale Method Initial DRG Weight: 2020-02-04 10:07:56 0.8372 Working DRG Weight: 2020-02-04 10:07:56 0.8372 ARLYN CHARGE Pulse 2020-02-04 10:07:56 Single Pulse Ox Oximetry /min Have you Lost Weight 2020-02-04 10:07:56 No Without Trying in the Past 6 Months? 02 Sat by Pulse 2020-02-04 10:07:56 100 /min Oximetry Body Mass Index 2020-02-04 10:07:56 26.5 Height 2020-02-04 10:07:56 167.64\\S\\66 Pulse Rate 2020-02-04 10:07:56 58 /min Pulse Strength 2020-02-04 10:07:56 Normal /min Respiratory Rate 2020-02-04 10:07:56 18 /min Respiratory Depth 2020-02-04 10:07:56 Normal /min Respiratory Effort 2020-02-04 10:07:56 Spontaneous /min Respiratory Pattern 2020-02-04 10:07:56 Normal /min Temperature 2020-02-04 10:07:56 36.7\\S\\98.1 Weight 2020-02-04 10:07:56 62262\\S\\2627.91 Weight Measurement 2020-02-04 10:07:56 Built in Bedscale Method ARLNY CHARGE Pulse 2020-02-04 06:31:28 Single Pulse Ox Oximetry /min Have you Lost Weight 2020-02-04 06:31:28 No Without Trying in the Past 6 Months? 02 Sat by Pulse 2020-02-04 06:31:28 100 /min Oximetry Body Mass Index 2020-02-04 06:31:28 26.5 Height 2020-02-04 06:31:28 167.64\\S\\66 Pulse Rate 2020-02-04 06:31:28 56 /min Pulse Strength 2020-02-04 06:31:28 Normal /min Respiratory Rate 2020-02-04 06:31:28 18 /min Respiratory Depth 2020-02-04 06:31:28 Normal /min Respiratory Effort 2020-02-04 06:31:28 Spontaneous /min Respiratory Pattern 2020-02-04 06:31:28 Normal /min Temperature 2020-02-04 06:31:28 36.7\\S\\98.1 Weight 2020-02-04 06:31:28 08554\\S\\2627.91 Weight Measurement 2020-02-04 06:31:28 Built in Bedscale Method ARLYN CHARGE Pulse 2020-02-03 15:40:21 Single Pulse Ox Oximetry /min Have you Lost Weight 2020-02-03 15:40:21 No Without Trying in the Past 6 Months? 02 Sat by Pulse 2020-02-03 15:40:21 100 /min Oximetry Body Mass Index 2020-02-03 15:40:21 26.5 Height 2020-02-03 15:40:21 167.64\\S\\66 Pulse Rate 2020-02-03 15:40:21 54 /min Respiratory Rate 2020-02-03 15:40:21 20 /min Respiratory Depth 2020-02-03 15:40:21 Normal /min Respiratory Effort 2020-02-03 15:40:21 Spontaneous /min Respiratory Pattern 2020-02-03 15:40:21 Normal /min Temperature 2020-02-03 15:40:21 37.1\\S\\98.8 Weight 2020-02-03 15:40:21 56914\\S\\2627.91 Weight Measurement 2020-02-03 15:40:21 Built in Bedscale Method ARLYN CHARGE Pulse 2020-02-03 13:59:33 Single Pulse Ox Oximetry /min Have you Lost Weight 2020-02-03 13:59:33 No Without Trying in the Past 6 Months? 02 Sat by Pulse 2020-02-03 13:59:33 100 /min Oximetry Body Mass Index 2020-02-03 13:59:33 26.5 Height 2020-02-03 13:59:33 167.64\\S\\66 Pulse Rate 2020-02-03 13:59:33 54 /min Respiratory Rate 2020-02-03 13:59:33 20 /min Respiratory Depth 2020-02-03 13:59:33 Normal /min Respiratory Effort 2020-02-03 13:59:33 Spontaneous /min Respiratory Pattern 2020-02-03 13:59:33 Normal /min Temperature 2020-02-03 13:59:33 37.1\\S\\98.8 Weight 2020-02-03 13:59:33 61330\\S\\2627.91 Weight Measurement 2020-02-03 13:59:33 Built in Bedscale Method ARLYN CHARGE Pulse 2020-02-03 13:57:29 Single Pulse Ox Oximetry /min Have you Lost Weight 2020-02-03 13:57:29 No Without Trying in the Past 6 Months? 02 Sat by Pulse 2020-02-03 13:57:29 100 /min Oximetry Body Mass Index 2020-02-03 13:57:29 26.5 Height 2020-02-03 13:57:29 167.64\\S\\66 Pulse Rate 2020-02-03 13:57:29 54 /min Respiratory Rate 2020-02-03 13:57:29 20 /min Respiratory Depth 2020-02-03 13:57:29 Normal /min Respiratory Effort 2020-02-03 13:57:29 Spontaneous /min Respiratory Pattern 2020-02-03 13:57:29 Normal /min Temperature 2020-02-03 13:57:29 37.1\\S\\98.8 Weight 2020-02-03 13:57:29 28397\\S\\2627.91 Weight Measurement 2020-02-03 13:57:29 Built in [employer] Method WEIGHT 2020-02-03 05:44:00 74.5 kg HEIGHT 2020-02-03 05:00:00 167.64 cm Respitory Rate 2014-07-22 20:45:00 [facility] [place] Heart Rate 2014-07-22 20:45:00 [facility] [place] Systolic (mm Hg) 2014-07-22 20:45:00 Jack [facility] Diastolic (mm Hg) 2014-07-22 20:45:00 [facility] [place] Height 2014-07-22 17:53:00 167.64 cm [facility] [place] Weight 2014-07-22 17:53:00 [facility] [place] BMI Calculated 2014-07-22 17:53:00 [facility] Respitory Rate 2014-07-22 17:53:00 [facility] Temperature Oral (F) 2014-07-22 17:53:00 97.9 F [facility] Heart Rate 2014-07-22 17:53:00 [facility] [place] Systolic (mm Hg) 2014-07-22 17:53:00 [facility] [facility] [place] Diastolic (mm Hg) 2014-07-22 17:53:00 [facility] [place] Procedures Procedure Date / Time Performing Clinician Source Performed PHOSPHORUS 2022-06-07 09:16:00 Haley [facility] MAGNESIUM 2022-06-07 09:16:00 [facility] BASIC METABOLIC PANEL 2022-06-07 09:16:00 Haley Jorge L [facility] (NA, K, CL, CO2, GLUCOSE, Faustino Medica l Branch BUN, CREATININE, CA) PHOSPHORUS 2022-06-05 11:13:00 Prajapati [facility] Jose Antonio MAGNESIUM 2022-06-05 11:13:00 Prajapati [facility] Jose Antonio BASIC METABOLIC PANEL 2022-06-05 11:13:00 Prajapati de [facility] (NA, K, CL, CO2, GLUCOSE, Rod, Juanpablo Medica l Branch BUN, CREATININE, CA) [place] CBC WITH DIFF 2022-06-05 11:13:00 Prajapati [facility] Jose Antonio PHOSPHORUS 2022-06-05 11:13:00 Prajapati [facility] Jose Antonio MAGNESIUM 2022-06-05 11:13:00 Prajapati [facility] Jose Antonio BASIC METABOLIC PANEL 2022-06-05 11:13:00 Prajapati [facility] (NA, K, CL, CO2, GLUCOSE, Rod, Juanpablo Medica l Branch BUN, CREATININE, CA) Jose Antonio CBC WITH DIFF 2022-06-05 11:13:00 [facility] CT THORAX W CONTRAST 2022-06-05 01:36:13 Jarod Nathan [facility] CT THORAX W CONTRAST 2022-06-05 01:36:13 [facility] ACTIVATED PARTIAL 2022-06-04 18:00:00 Armando Pandey [facility] ACTIVATED PARTIAL 2022-06-04 18:00:00 Armando Pandey [facility] ACTIVATED PARTIAL 2022-06-04 14:21:00 Ryley Polo [facility] ACTIVATED PARTIAL 2022-06-04 14:21:00 Ryley Polo [facility] XR KUB 2022-06-04 09:32:00 Dannie [facility] XR KUB 2022-06-04 09:32:00 Dannie [facility] XR KUB 2022-06-04 06:45:00 Dannie, [facility] XR KUB 2022-06-04 06:45:00 Dannie [facility] HIT - AB 2022-06-04 06:14:00 Dannie [facility] EXTRA SST HOLD FOR ARUP 2022-06-04 06:14:00 Dannie [facility] HIT - AB 2022-06-04 06:14:00 Dannie [facility] EXTRA SST HOLD FOR ARUP 2022-06-04 06:14:00 Dannie [facility] XR CHEST 1 VW 2022-06-04 05:23:00 Dannie [facility] XR CHEST 1 VW 2022-06-04 05:23:00 Dannie [facility] TROPONIN I 2022-06-04 04:51:00 Dannie [facility] HEPATIC FUNCTION PANEL 2022-06-04 04:51:00 Armando Pandey [facility] ([id number]) (ALB,T.PRO,BILI Medical Branch T,BU/BC,ALT,AST,ALK PHOS) BASIC METABOLIC PANEL 2022-06-04 04:51:00 Armando Pandey [facility] (NA, K, CL, CO2, GLUCOSE, Medica l Branch BUN, CREATININE, CA) CBC WITH DIFF 2022-06-04 04:51:00 Dannie [facility] ACTIVATED PARTIAL 2022-06-04 04:51:00 Andreea [facility] TROPONIN I 2022-06-04 04:51:00 Dannie [facility] HEPATIC FUNCTION PANEL 2022-06-04 04:51:00 Armando Pandey [facility] ([id number]) (ALB,T.PRO,BILI Medical Branch T,BU/BC,ALT,AST,ALK PHOS) BASIC METABOLIC PANEL 2022-06-04 04:51:00 Armando Pandey [facility] (NA, K, CL, CO2, GLUCOSE, Medica l Branch BUN, CREATININE, CA) CBC WITH DIFF 2022-06-04 04:51:00 Armando Pandey [facility] ACTIVATED PARTIAL 2022-06-04 04:51:00 Joseph Doran [facility] HB ECG ROUTINE & RHYTHM 2022-06-04 04:43:15 Armando Pandey [facility] HB ECG ROUTINE & RHYTHM 2022-06-04 04:43:15 Armando Pandey [facility] ACTIVATED PARTIAL 2022-06-03 20:52:00 [facility] 2022-06-03 20:52:00 [facility] FL TIME OR 2022-06-03 17:21:00 [facility] (NON-REPORTABLE) [facility] FL TIME OR 2022-06-03 17:21:00 [facility] (NON-REPORTABLE) Rod [facility] ABG+COOX+NA+K+GLU+CA2+ 2022-06-03 16:52:[address] [facility] ABG+COOX+NA+K+GLU+CA2+ 2022-06-03 16:52:[address] [facility] SURGICAL PATHOLOGY EXAM 2022-06-03 15:42:00 Lawrence Peterson [facility] ABG+COOX+NA+K+GLU+CA2+ 2022-06-03 15:36:[address] [facility] ABG+COOX+NA+K+GLU+CA2+ 2022-06-03 15:36:00 Allan Lynch [facility] HB ABO GROUPING 2022-06-03 13:05:00 Vishnu Zapien [facility] HB ABO GROUPING 2022-06-03 13:05:00 [facility] INFERIOR VENA CAVA FILTER 2022-06-03 12:00:00 Lawrence [facility] VENOUS THROMBECTOMY 2022-06-03 12:00:00 Lawrence Peterson [facility] ANGIOPLASTY 2022-06-03 12:00:00 Lawrence Peterson [facility] VASCULAR STENTING 2022-06-03 12:00:00 Lawrence Peterson [facility] INFERIOR VENA CAVA FILTER 2022-06-03 12:00:00 Lawrence Peterson [facility] VENOUS THROMBECTOMY 2022-06-03 12:00:00 Lawrence Peterson [facility] ANGIOPLASTY 2022-06-03 12:00:00 Lawrence Peterson [facility] VASCULAR STENTING 2022-06-03 12:00:00 Lawrence Peterson [facility] PHOSPHORUS 2022-06-03 10:34:00 [facility] [place] MAGNESIUM 2022-06-03 10:34[facility]00 [facility] BASIC METABOLIC PANEL 2022-06-03 10:34:00 [facility] (NA, K, CL, CO2, GLUCOSE, Rod, Juanpablo [facility] BUN, CREATININE, CA) [place] CBC WITH DIFF 2022-06-03 10:34:00 [facility] Jose Antonio ACTIVATED PARTIAL 2022-06-03 10:34:00 [facility] PH[facility]PH[facility]US 2022-06-03 10:34:00 [facility] [place] MAGNESIUM 2022-06-03 10:34:00 [facility] [place] BASIC METABOLIC PANEL 2022-06-03 10:34:00 [facility]atiFormerly [facility] (NA, K, CL, CO2, GLUCOSE, Rod, Juanpablo Medica [facility] BUN, CREATININE, CA) Jose [place] CBC WITH DIFF 2022-06-03 10:34:00 [facility] [place] ACTIVATED PARTIAL 2022-06-03 10:34:00 Andreea [facility] ACTIVATED PARTIAL 2022-06-02 22:26:00 [facility]-02 22:26[facility]00 [facility] 2022-06-02 15:46:00 Andreea [facility] ACTIVATED PARTIAL 2022-06-02 15:46:00 Andreea [facility] PHOSPHORUS 2022-06-02 10:27:00 [facility] [place] Antonio MAGNESIUM 2022-06-02 10:27:00 [facility] [place] BASIC METABOLIC PANEL 2022-06-02 10:27:00 PrajapatiFormerly [facility] (NA, K, CL, CO2, GLUCOSE, Rod, Juanpablo [facility] BUN, CREATININE, CA) Jose [place] CBC WITH DIFF 2022-06-02 10:27:00 [facility] [place] PHOSPHORUS 2022-06-02 10:27:00 Prajapati [facility] Jose Antonio MAGNESIUM 2022-06-02 10:27:00 [facility] [place] BASIC METABOLIC PANEL 2022-06-02 10:27:00 Prajapati [facility] (NA, K, CL, CO2, GLUCOSE, Rod, Juanpablo [facility] BUN, CREATININE, CA) [place] CBC WITH DIFF 2022-06-02 10:27:00 Prajapati [facility] Jose Antonio PHOSPHORUS 2022-06-01 10:05:00 Prajapati [facility] Jose Antonio MAGNESIUM 2022-06-01 10:05:00 Prajapati [facility] Jose Antonio BASIC METABOLIC PANEL 2022-06-01 10:05:00 Prajapati [facility] (NA, K, CL, CO2, GLUCOSE, Rod, [facility]pablo [facility] BUN, CREATININE, CA) [place] CBC WITH DIFF 2022-06-01 10:05:00 [facility] [place] PHOSPHORUS 2022-06-01 10:05:00 Prajapati [facility] Jose Antonio MAGNESIUM 2022-06-01 10:05:00 Prajapati [facility] Jose Antonio BASIC METABOLIC PANEL 2022-06-01 10:05:00 PrajapatiFormerly [facility] (NA, K, CL, CO2, GLUCOSE, Rod, [facility] BUN, CREATININE, CA) [place] CBC WITH DIFF 2022-06-01 10:05:00 [facility] [place] Antonio PHOSPHORUS 2022-05-31 11:01:00 Prajapati [facility] Jose Antonio MAGNESIUM 2022-05-31 11:01:00 Prajapati [facility] Jose Antonio BASIC METABOLIC PANEL 2022-05-31 11:01:00 Prajapati [facility] (NA, K, CL, CO2, GLUCOSE, Rod, [facility] BUN, CREATININE, CA) [place] CBC WITH DIFF 2022-05-31 11:01:00 [facility] [place] Antonio PROTHROMBIN TIME / INR 2022-05-31 11:01:00 Juanpablo Salmon [facility] ACTIVATED PARTIAL 2022-05-31 11:01:00 Juanpablo Salmon [facility] FIBRINOGEN 2022-05-31 11:01:00 Ryley Polo [facility] PHOSPHORUS 2022-05-31 11:01:00 [facility] [place] MAGNESIUM 2022-05-31 11:01:00 [facility] [place] BASIC METABOLIC PANEL 2022-05-31 11:01:00 Prajapati [facility] (NA, K, CL, CO2, GLUCOSE, Rod, Juanpablo [facility] BUN, CREATININE, CA) [place] CBC WITH DIFF 2022-05-31 11:01:00 [facility] [place] Antonio PROTHROMBIN TIME / INR 2022-05-31 11:01:00 Maurice Gutierrez [facility] ACTIVATED PARTIAL 2022-05-31 11:01:[address] FIBRINOGEN 2022-05-31 11:01:00 Ryley Polo [facility] PHOSPHORUS 2022-05-31 11:01:00 [facility] [place] Antonio MAGNESIUM 2022-05-31 11:01:00 [facility] [place] BASIC METABOLIC PANEL 2022-05-31 11:01:00 PrajapatiFormerly [facility] (NA, K, CL, CO2, GLUCOSE, Rod, Juanpablo [facility] BUN, CREATININE, CA) Jose [place] CBC WITH DIFF 2022-05-31 11:01:00 [facility] [place] Antonio PROTHROMBIN TIME / INR 2022-05-31 11:01:00 Juanpablo Salmon [facility] ACTIVATED PARTIAL 2022-05-31 11:01:00 Juanpablo Salmon [facility] FIBRINOGEN 2022-05-31 11:01:00 [facility] FL TIME OR 2022-05-31 04:56:00 [facility] FL TIME OR 2022-05-31 04:56:00 [facility] FL TIME OR 2022-05-31 04:56:00 [facility] FIBRINOGEN 2022-05-31 01:26:00 [facility] FIBRINOGEN 2022-05-31 01:26:00 [facility] FIBRINOGEN 2022-05-31 01:26:00 [facility] VENOGRAM 2022-05-31 01:17:00 [facility] VENOGRAM 2022-05-31 01:17:00 [facility] FIBRINOGEN 2022-05-30 21:47:00 [facility] FIBRINOGEN 2022-05-30 21:47:00 [facility] FIBRINOGEN 2022-05-30 21:47:00 [facility] FIBRINOGEN 2022-05-30 18:14:00 [facility] FIBRINOGEN 2022-05-30 18:14:00 [facility] FIBRINOGEN 2022-05-30 18:14:00 [facility] FIBRINOGEN 2022-05-30 18:14:00 [facility] FIBRINOGEN 2022-05-30 15:21:00 [facility] FIBRINOGEN 2022-05-30 15:21:00 [facility] FIBRINOGEN 2022-05-30 15:21:00 [facility] FIBRINOGEN 2022-05-30 15:21:00 [facility] FIBRINOGEN 2022-05-30 13:12:00 [facility] FIBRINOGEN 2022-05-30 13:12:00 [facility] FIBRINOGEN 2022-05-30 13:12:00 [facility] FIBRINOGEN 2022-05-30 13:12:00 [facility] FIBRINOGEN 2022-05-30 11:13:00 [facility] FIBRINOGEN 2022-05-30 11:13:00 [facility] FIBRINOGEN 2022-05-30 11:13:00 [facility] FIBRINOGEN 2022-05-30 11:13:00 [facility] PHOSPHORUS 2022-05-30 09:27:00 [facility] MAGNESIUM 2022-05-30 09:27:00 [facility] BASIC METABOLIC PANEL 2022-05-30 09:27:00 [facility] ([facility], K, CL, CO2, GLUCOSE, Medica l Branch BUN, CREATININE, CA) CBC WITH DIFF 2022-05-30 09:27:00 [facility] ACTIVATED PARTIAL 2022-05-30 09:27:00 Ryley Polo [facility] THRFormerly [facility] FIBRINOGEN 2022-05-30 09:27:00 [facility] PHOSPHORUS 2022-05-30 09:27:00 [facility] MAGNESIUM 2022-05-30 09:27:00 [facility] BASIC METABOLIC PANEL 2022-05-30 09:27:00 [facility] (NA, K, CL, CO2, GLUCOSE, Medica l Branch BUN, CREATININE, CA) CBC WITH DIFF 2022-05-30 09:27:00 [facility] ACTIVATED PARTIAL 2022-05-30 09:27:00 [facility] FIBRINOGEN 2022-05-30 09:27:00 [facility] PHOSPHORUS 2022-05-30 09:27:00 [facility] MAGNESIUM 2022-05-30 09:27:00 [facility] BASIC METABOLIC PANEL 2022-05-30 09:27:00 [facility] (NA, K, CL, CO2, GLUCOSE, Medica l Branch BUN, CREATININE, CA) CBC WITH DIFF 2022-05-30 09:27:00 [facility] ACTIVATED PARTIAL 2022-05-30 09:27:00 [facility] FIBRINOGEN 2022-05-30 09:27:00 [facility] PHOSPHORUS 2022-05-30 09:27:00 [facility] MAGNESIUM 2022-05-30 09:27:00 [facility] BASIC METABOLIC PANEL 2022-05-30 09:27:00 [facility] (NA, K, CL, CO2, GLUCOSE, Medica l Branch BUN, CREATININE, CA) CBC WITH DIFF 2022-05-30 09:27:00 [facility] ACTIVATED PARTIAL 2022-05-30 09:27:00 [facility] FIBRINOGEN 2022-05-30 09:27:00 [facility] FIBRINOGEN 2022-05-30 06:58:00 [facility] FIBRINOGEN 2022-05-30 06:58:00 [facility] FIBRINOGEN 2022-05-30 06:58:00 [facility] FIBRINOGEN 2022-05-30 06:58:00 [facility] ACTIVATED PARTIAL 2022-05-30 06:13:00 [facility] ACTIVATED PARTIAL 2022-05-30 06:13:00 [facility] ACTIVATED PARTIAL 2022-05-30 06:13:00 [facility] ACTIVATED PARTIAL 2022-05-30 06:13:00 [facility] FIBRINOGEN 2022-05-30 04:43:00 [facility] FIBRINOGEN 2022-05-30 04:43:00 [facility] FIBRINOGEN 2022-05-30 04:43:00 [facility] FIBRINOGEN 2022-05-30 04:43:00 [facility] FIBRINOGEN 2022-05-29 23:24:00 [facility] FIBRINOGEN 2022-05-29 23:24:00 [facility] FIBRINOGEN 2022-05-29 23:24:00 [facility] FIBRINOGEN 2022-05-29 23:24:00 [facility] FIBRINOGEN 2022-05-29 21:10:00 [facility] FIBRINOGEN 2022-05-29 21:10:00 [facility] FIBRINOGEN 2022-05-29 21:10:00 [facility] FIBRINOGEN 2022-05-29 21:10:00 [facility] BASIC METABOLIC PANEL 2022-05-29 14:55:00 Armando Pandey [facility]ity [facility] (NA, K, CL, CO2, GLUCOSE, Medica l Branch BUN, CREATININE, CA) CBC WITH DIFF 2022-05-29 14:55:00 Armando Pandey [facility] FIBRINOGEN 2022-05-29 14:55:00 Cris Allan [facility] BASIC METABOLIC PANEL 2022-05-29 14:55:00 Armando Pandey [facility] sity [facility] (NA, K, CL, CO2, GLUCOSE, Medica l Branch BUN, CREATININE, CA) CBC WITH DIFF 2022-05-29 14:55:00 [facility] 2022-05-29 14:55:00 [facility] BASIC METABOLIC PANEL 2022-05-29 14:55:00 Armando Pandey [facility] sity [facility] (NA, K, CL, CO2, GLUCOSE, Medica l Branch BUN, CREATININE, CA) CBC WITH DIFF 2022-05-29 14:55:00 [facility] 2022-05-29 14:55:00 [facility] BASIC METABOLIC PANEL 2022-05-29 14:55:00 Armando Pandey [facility] sity [facility] (NA, K, CL, CO2, GLUCOSE, Medica l Branch BUN, CREATININE, CA) CBC WITH DIFF 2022-05-29 14:55:00 Armando Pandey [facility] FIBRINOGEN 2022-05-29 14:55:00 Cris Allan [facility] FL TIME OR 2022-05-29 14:03:00 Haley [facility] (NON-REPORTABLE) [facility] FL TIME OR 2022-05-29 14:03:00 Haley [facility] (NON-REPORTABLE) [facility] FL TIME OR 2022-05-29 14:03:00 Haley [facility] (NON-REPORTABLE) [facility] FL TIME OR 2022-05-29 14:03:00 Haley [facility] (NON-REPORTABLE) [facility] VENOUS THROMBOLYSIS 2022-05-29 12:05:00 Cris [facility] VENOUS THROMBOLYSIS 2022-05-29 12:05:00 Cris [facility] MAGNESIUM 2022-05-29 11:11:00 [facility]OLIC PANEL 2022-05-29 11:11:00 Amber Orellana [facility] (NA, K, CL, CO2, GLUCOSE, Medica l Branch BUN, CREATININE, CA) CBC WITHOUT DIFF 2022-05-29 11:11:[address] [facility] ACTIVATED PARTIAL 2022-05-29 11:11:00 Reyna [facility] MAGNESIUM 2022-05-29 11:11:00 [facility] BASIC METABOLIC PANEL 2022-05-29 11:11:00 Amber Orellana [facility] (NA, K, CL, CO2, GLUCOSE, Medica l Branch BUN, CREATININE, CA) CBC WITHOUT DIFF 2022-05-29 11:11:00 [facility] 2022-05-29 11:11:00 [facility] 2022-05-29 11:11:00 [facility] BASIC METABOLIC PANEL 2022-05-29 11:11:00 Amber Orellana [facility] (NA, K, CL, CO2, GLUCOSE, Medica l Branch BUN, CREATININE, CA) CBC WITHOUT DIFF 2022-05-29 11:11:[address] [facility] ACTIVATED PARTIAL 2022-05-29 11:11:00 Reyna [facility] MAGNESIUM 2022-05-29 11:11:00 Reyna [facility] BASIC METABOLIC PANEL 2022-05-29 11:11:00 Amber Orellana [facility] (NA, K, CL, CO2, GLUCOSE, Medica l Branch BUN, CREATININE, CA) CBC WITHOUT DIFF 2022-05-29 11:11:00 [facility] 2022-05-29 11:11:00 [facility]H CONFIRMATION (LAB 2022-05-28 23:34:00 [facility] ABORH CONFIRMATION (LAB 2022-05-28 23:34:00 [facility] ONLY) Medical Branch ABORH CONFIRMATION (LAB 2022-05-28 23:34:00 [facility] ONLY) Medical Branch ABORH CONFIRMATION (LAB 2022-05-28 23:34:00 [facility] ONLY) [facility] HB ABO GROUPING 2022-05-28 23:00:00 [facility] HB ABO GROUPING 2022-05-28 23:00:00 [facility] HB ABO GROUPING 2022-05-28 23:00:00 [facility] HB ABO GROUPING 2022-05-28 23:00:00 [facility] 2022-05-28 22:59:00 [facility] 2022-05-28 22:59:00 [facility] 2022-05-28 22:59:00 [facility] 2022-05-28 22:59:00 [facility] PROTHROMBIN TIME / INR 2022-05-28 17:23:00 Amber Orellana [facility] ACTIVATED PARTIAL 2022-05-28 17:23:00 [facility] PROTHROMBIN TIME / INR 2022-05-28 17:23:00 Amber Orellana [facility] ACTIVATED PARTIAL 2022-05-28 17:23:00 [facility] PROTHROMBIN TIME / INR 2022-05-28 17:23:[address] ACTIVATED PARTIAL 2022-05-28 17:23:00 [facility] PROTHROMBIN TIME / INR 2022-05-28 17:23:[address] [facility] ACTIVATED PARTIAL 2022-05-28 17:23:00 [facility] BASIC METABOLIC PANEL 2022-05-28 09:09:00 [facility] (NA, K, CL, CO2, GLUCOSE, Medica l Branch BUN, CREATININE, CA) CBC WITH DIFF 2022-05-28 09:09:[address] [facility] FACTOR 5 LEIDEN 2022-05-28 09:09:00 [facility] FA[facility] 2 [id number] MUTATION 2022-05-28 09:09:00 Liseth [facility] F5 LEIDEN AND F2 [id number] 2022-05-28 09:09:00 Liseth Vitale [facility] BASIC METABOLIC PANEL 2022-05-28 09:09:00 Romario Friedman [facility] (NA, K, CL, CO2, GLUCOSE, Medica l Branch BUN, CREATININE, CA) CBC WITH DIFF 2022-05-28 09:09:[address] [facility] FACTOR 5 LEIDEN 2022-05-28 09:09:00 [facility] FACTOR 2 [id number] MUTATION 2022-05-28 09:09:00 Liseth Vitale [facility] F5 LEIDEN AND F2 [id number] 2022-05-28 09:09:00 Liseth Vitale [facility] BASIC METABOLIC PANEL 2022-05-28 09:09:00 Romario Friedman [facility] (NA, K, CL, CO2, GLUCOSE, Medica l Branch BUN, CREATININE, CA) CBC WITH DIFF 2022-05-28 09:09:00 Romario Friedman [facility] FACTOR 5 LEIDEN 2022-05-28 09:09:00 [facility] FACTOR 2 [id number] MUTATION 2022-05-28 09:09:00 L[facility]eth [facility] F5 LEIDEN AND F2 [id number] 2022-05-28 09:09:00 Liseth Vitale [facility] BASIC METABOLIC PANEL 2022-05-28 09:09:00 Romario Frideman [facility] (NA, K, CL, CO2, GLUCOSE, Medica l Branch BUN, CREATININE, CA) CBC WITH DIFF 2022-05-28 09:09:00 Romario Friedman [facility] FACTOR 5 LEIDEN 2022-05-28 09:09:00 [facility] FACTOR 2 [id number] MUTATION 2022-05-28 09:09:00 Liseth Vitale [facility] F5 LEIDEN AND F2 [id number] 2022-05-28 09:09:00 Liseth Vitale [facility] TRANSTHORACIC ECHO (TTE) 2022-05-27 15:47:00 Romario Friedman [facility] W/ CONTRAST [facility] TRANSTHORACIC ECHO (TTE) 2022-05-27 15:47:00 Romario Friedman [place] [facility] W/ CONTRAST Medical [facility] TRANSTHORACIC ECHO (TTE) 2022-05-27 15:47:00 Romario Friedman niversity [facility] W/ CONTRAST Medical [facility] TRANSTHORACIC ECHO (TTE) 2022-05-27 15:47:00 Romario Friedman nivers[place] [facility] W/ CONTRAST Medical [facility] CT ABDOMEN PELVIS W 2022-05-27 11:28[facility] Medical [place] CT ABDOMEN PELVIS W 2022-05-27 11:28:06 [facility] Medical Branch CT ABDOMEN PELVIS W 2022-05-27 11:28:06 [facility] CT ABDOMEN PELVIS W 2022-05-27 11:28:06 Edionwe [facility] CONTRAST Medical Branch BASIC METABOLIC PANEL 2022-05-27 09:45:00 [facility] ([facility], K, CL, CO2, GLUCOSE, Medica l Branch BUN, CREATININE, CA) CBC WITH DIFF 2022-05-27 09:45:00 [facility] GLYCOSYL[facility]EMOGLOBIN 2022-05-27 09:45:00 [facility] Medical Branch BASIC METABOLIC PANEL 2022-05-27 09:45:00 [facility] (NA, K, CL, CO2, GLUCOSE, Medica l Branch BUN, CREATININE, CA) CBC WITH DIFF 2022-05-27 09:45:00 [facility] GLYCOSYLATED HEMOGLOBIN 2022-05-27 09:45:00 [facility] Medical Branch BASIC METABOLIC PANEL 2022-05-27 09:45:00 [facility] (NA, K, CL, CO2, GLUCOSE, Medica l Branch BUN, CREATININE, CA) CBC WITH DIFF 2022-05-27 09:45:00 [facility] GLYCOSYLATED HEMOGLOBIN 2022-05-27 09:45:00 [facility] ([facility] Medical Branch BASIC METABOLIC PANEL 2022-05-27 09:45:00 [facility] (NA, K, CL, CO2, GLUCOSE, Medica l Branch BUN, CREATININE, CA) CBC WITH DIFF 2022-05-27 09:45:00 [facility] GLYCOSYLATED HEMOGLOBIN 2022-05-27 09:45:00 [facility] Medical Branch DUPLEX VENOUS LEGS 2022-05-27 01:08:52 Meche Zapata [facility] BILATERAL - BY VASCULAR Medical Branch LAB DUPLEX VENOUS LEGS 2022-05-27 01:08:52 Meche Zapata [facility] BILATERAL - BY VASCULAR [facility] Branch LAB DUPLEX VENOUS LEGS 2022-05-27 01:08:52 Meche Zapata [facility] BILATERAL - BY VASCULAR [facility] LAB DUPLEX VENOUS LEGS 2022-05-27 01:08:52 Meche Zapata [facility] BILATERAL - BY VASCULAR [facility] LAB URINE DRUG (IMMUNOASSAY) 2022-05-26 22:13:00 Ondina Yusuf Lavish [facility] DRUG [facility] ER SCREEN URINALYSIS 2022-05-26 22:13:00 Meche Zapata Meme [facility] URINE DRUG (IMMUNOASSAY) 2022-05-26 22:13:00 Madelin Emberkirit Lavish [employer] [facility] DRUG [facility] ER SCREEN URINALYSIS 2022-05-26 22:13:00 Meche Zapata [facility] URINE DRUG (IMMUNOASSAY) 2022-05-26 22:13:00 Madelin Emberkirit Lavish [employer] [facility] DRUG [facility] ER SCREEN URINALYSIS 2022-05-26 22:13:00 Meche Zapata [facility] URINE DRUG (IMMUNOASSAY) 2022-05-26 22:13:00 Madelin Emberkirit Lavish Skate [facility] SCREEN URINALYSIS 2022-05-26 22:13:00 Meche Zapata [facility] HB ECG ROUTINE & RHYTHM 2022-05-26 21:43:55 Meche Zapata [facility] HB ECG ROUTINE & RHYTHM 2022-05-26 21:43:55 Meche Zapata [facility] HB ECG ROUTINE & RHYTHM 2022-05-26 21:43:55 Meche Zapata [facility] HB ECG ROUTINE & RHYTHM 2022-05-26 21:43:55 Meche Zapata [facility] XR CHEST 1 VW 2022-05-26 21:37:08 Meche Zapata [facility] XR CHEST 1 VW 2022-05-26 21:37:08 Meche Zapata [facility] XR CHEST 1 VW 2022-05-26 21:37:08 JodiMeche delarosa [facility] XR CHEST 1 VW 2022-05-26 21:37:08 Meche Zapata [facility] MAGNESIUM 2022-05-26 21:20:00 JodiMeche delarosa [facility] TROPONIN I 2022-05-26 21:20:00 JodiMeche delarosa [facility] COMP. METABOLIC PANEL 2022-05-26 21:20:00 Meche Zapata [facility] ([id number]) [facility] CBC WITH DIFF 2022-05-26 21:20:00 Meche Zapata [facility] N-TERMINAL PRO-BNP 2022-05-26 21:20:00 Meche Zapata [facility] acute hospital MAGNESIUM 2022-05-26 21:20:00 JodiMeche delarosa [facility] TROPONIN I 2022-05-26 21:20:00 Meche Zapata [facility] COMP. METABOLIC PANEL 2022-05-26 21:20:00 Meche Zapata [facility] ([id number]) [facility] CBC WITH DIFF 2022-05-26 21:20:00 Meche Zapata [facility] N-TERMINAL PRO-BNP 2022-05-26 21:20:00 Meche Zapata [facility] acute hospital MAGNESIUM 2022-05-26 21:20:00 JodiMeche delarosa [facility] TROPONIN I 2022-05-26 21:20:00 Meche Zapata [facility] COMP. METABOLIC PANEL 2022-05-26 21:20:00 Meche Zapata [facility] ([id number]) [facility] CBC WITH DIFF 2022-05-26 21:20:00 JodiMeche delarosa [facility] N-TERMINAL PRO-BNP 2022-05-26 21:20:00 Meche Zapata [facility] acute hospital MAGNESIUM 2022-05-26 21:20:00 Meche Zapata [facility] TROPONIN I 2022-05-26 21:20:00 Meche Zapata [facility]e [facility] COMP. METABOLIC PANEL 2022-05-26 21:20:00 Meche Zapata [facility] ([id number]) Medical [place] CBC WITH DIFF 2022-05-26 21:20:00 Meche Zapata [facility]e [facility] N-TERMINAL PRO-BNP 2022-05-26 21:20:00 Meche Zapata Meme General acute hospital HOSPITAL ADMISSION 2022-05-26 05:01:00 Doctor Sergo, [facility] Name [facility] HOSPITAL ADMISSION 2022-05-26 05:01:00 Doctor Sergo, [facility] Name [facility] HOSPITAL ADMISSION 2022-05-26 05:01:00 Doctor Sergo, [facility] Name [facility] XR LUMBAR SPINE 3 VW 2022-05-23 09:47:55 Carlos Corbin [facility] DISCLOSURE AND CONSENT, 2022-05-19 05:01:00 Doctor Sergo, [facility] MEDICAL AND SURGICAL [facility] PROCEDURES PATIENT QUESTIONNAIRE 2022-05-17 05:01:00 Doctor Sergo, [facility] INSURANCE CORRESPONDENCE 2022-05-16 05:01:00 Doctor Sergo, [facility] INSURANCE CORRESPONDENCE 2022-05-04 05:01:00 Doctor Sergo, [facility] [place] DME/SUPPLY JUSTIFICATION 2022-04-22 06:01:00 Doctor Sergo, [facility] PATIENT FINANCIAL 2022-04-13 15:27:54 Doctor Trotter [facility] POLICY [facility] SLEEP STUDY DATA REPORT 2022-04-02 06:01:00 Doctor Sergo, [facility] XR HIPS 2 VW RIGHT 2022-03-24 14:56:12 Susan Manjarrez [facility] acute hospital MR LUMBAR SPINE WO 2022-03-24 14:41:33 Delroy Farah [facility] Medical Branch INSURANCE CORRESPONDENCE 2022-02-15 06:01:00 Doctor Unassigned, [facility] EXTERNAL PROVIDER RECORDS 2022-02-03 06:01:00 Doctor Unassigned, [facility] REFERRAL- 2022-01-17 06:01:00 Doctor Unassigned, [facility] REQUEST/RESPONSE [facility] ASSIGNMENT OF BENEFITS 2021-12-08 15:11:38 Doctor Unassigned, Un [facility] SLEEP STUDY DATA REPORT 2021-11-04 05:01:00 [facility] Plan of Care Planned Activity Planned Date Details Comments Source Future Scheduled 2022-05-18 COVID-19 VACCINE (#1) [facility] 20:48:55 [code = COVID-19 VACCINE (#1)] Future Scheduled 2022-05-18 Hepatitis C screening [facility] 20:48:55 (procedure) [code = 157322265] Future Scheduled 2022-05-18 COLONOSCOPY SCREENING [facility] 20:48:55 [code = COLONOSCOPY SCREENING] Future Scheduled 2022-05-18 SHINGLES VACCINES ([facility] 20:48:55 of 2) [code = SHINGLES VACCINES (1 of 2)] Future Scheduled 2022-05-18 INFLUENZA VACCINE [facility] Test 20:48:55 [code = INFLUENZA VACCINE] Future Scheduled 2022-05-18 COVID-19 VACCINE (#1) [facility] 20:48:55 [code = COVID-19 VACCINE (#1)] Future Scheduled 2022-05-18 [facility] C [facility] 20:48:55 (procedure) [code = 576901705] Future Scheduled 2022-05-18 [facility]ING [facility] 20:48:55 [code = COLONOSCOPY SCREENING] Future Scheduled 2022-05-18 SHINGLES VACCINES (1 [facility] 20:48:55 of 2) [code = SHINGLES VACCINES (1 of 2)] Future Scheduled 2022-05-18 INFLUENZA VACCINE [facility] Test 20:48:55 [code = INFLUENZA VACCINE] Future Scheduled 2021-10-15 HEPATITIS B VACCINES Met [facility] Test 19:26:49 (1 of 3 - 3-dose series) [code = HEPATITIS B VACCINES (1 of 3 - 3-dose series)] Future Scheduled 2021-10-15 COVID-19 VACCINE (#1) [facility] Test 19:26:49 [code = COVID-19 VACCINE (#1)] Future Scheduled 2021-10-15 Hepatitis C screening [facility] Test 19:26:49 (procedure) [code = 300370327] Future Scheduled 2021-10-15 COLONOSCOPY SCREENING [facility] Test 19:26:49 [code = COLONOSCOPY SCREENING] Future Scheduled 2021-10-15 SHINGLES VACCINES (1 Met [facility] Test 19:26:49 of 2) [code = SHINGLES VACCINES (1 of 2)] Future Scheduled 2021-10-15 INFLUENZA VACCINE Method [facility] Hospital Test 19:26:49 [code = INFLUENZA VACCINE] Future Scheduled 2021-10-12 HEPATITIS B VACCINES Met [facility] Test 17:47:43 (1 of 3 - 3-dose series) [code = HEPATITIS B VACCINES (1 of 3 - 3-dose series)] Future Scheduled 2021-10-12 COVID-19 VACCINE (#1) [facility] Test 17:47:43 [code = COVID-19 VACCINE (#1)] Future Scheduled 2021-10-12 Hepatitis C screening [facility] Test 17:47:43 (procedure) [code = 525999914] Future Scheduled 2021-10-12 COLONOSCOPY SCREENING [facility] Test 17:47:43 [code = COLONOSCOPY SCREENING] Future Scheduled 2021-10-12 SHINGLES VACCINES (1 Met [facility] Test 17:47:43 of 2) [code = SHINGLES VACCINES (1 of 2)] Future Scheduled 2021-10-12 INFLUENZA VACCINE Method [facility] Test 17:47:43 [code = INFLUENZA VACCINE] Encounters Start End Encounter Admission Attending Care Care Encounter Source Date/Time Date/Time Type Type Clinicians Facility Department ID 2022-06-11 Outpatient 3 [id number] [place] [id number] [facility] 03:48:38 [facility] [place] 2022-06-10 Outpatient 3 [id number] ENCPL PM [facility] 02:10:29 [facility] [place] 2022-06-09 Outpatient 3 [id number] ENCPL PM [facility] 10:37:19 0427 [facility] [place] 2022-06-01 Outpatient R IZABELA PHAM [facility] TIFFANY [id number] Univers 14:27:32 IZABELA PHAM [facility] 2022-06-01 Outpatient 3 [id number] ENCPL REF [facility] 12:13:29 0419 [facility] 2020-12-14 Emergency [facility] [id number] Univers 03:38:[facility]14 Emergency [facility] [id number] Univers 02:28:47 [facility] 2020-12-14 Emergency [facility] [id number] Univers 02:03:46 [facility] 2020-12-13 Emergency [facility] [id number] Univers 15:19:05 [facility] 2020-02-02 Inpatient [facility] [id number] [facility] 19:02:00 2020-02-02 Inpatient [facility] [id number] [facility] 19:02:00 30 2022-09-15 2022-09-15 Outpatient R LAWRENCE PETERSON [facility] 1 [id number] Univers 10:00:00 10:00:00 LAWRENCE PETERSON [facility] 2022-08-03 2022-08-03 Outpatient R JERRICA [facility] [id number] Univers 10:15:00 10:15:00 ROBINA [facility] 2022-06-16 2022-06-16 Office Donna [facility] 1.2.840.114 [id number] Univers 11:30:00 11:45:00 Visit Lawrence BLAKE 350.1.13.10 i ty of [place] 4.2.7.2.686 [place] [id number] [address] OFFICE BUILDING 2022-06-16 2022-06-16 Outpatient R LAWRENCE PETERSON [facility] 1 [id number] Univers 11:30:00 11:30:00 LAWRENCE PETERSON ity of [facility] 2022-06-16 2022-06-16 Telephone [facility] [id number] Univers 00:00:00 00:00:00 [facility] 350.1.13.10 i ty [place] [id number] [address] OFFICE BUILDING 2022-06-14 2022-06-14 Telephone [facility] [id number] Univers 00:00:00 00:00:00 Lawrence HEALTH 350.1.13.10 i ty of [place].2.7.2.686 [place] [id number] [address] OFFICE BUILDING 2022-06-08 2022-06-08 Telephone LAKESHIA Pham [id number] Univers 00:00:00 00:00:00 Izabela BEARD 350.1.13.10 i ty of [facility] 4.2.7.2.686 Neal as [id number] [place] [address] Branch 2022-06-08 2022-06-08 Transition ANASTASIIA Calderon 1.2.840.114 10 [id number] Univers 00:00:00 00:00:00 of Care Elyssa BENNETT 350.1.13.10 i ty of [place] [id number] [facility] 403 Branch 2022-05-26 2022-06-07 Inpatient Felix LYNCH [facility] [id number] Univers 15:42:00 15:09:00 ALLAN hooks of [facility] 2022-05-26 2022-06-07 Hospital Meche Zapata 1.2.840.1 [id number] Univers 15:42:00 15:09:00 Encounter Luis Huerta 350.1.13.10 ity of [facility] 4.2.7.2.686 Lance Swift [id number] Medical Allan Lynch 097 anch 2022-06-07 2022-06-07 Outpatient R IGLESIA [facility] [id number] Univers 13:00:00 13:00:00 RENEE hooks [facility] 2022-06-03 2022-06-03 Surgery TYE Peterson 1.2.840.114 [id number] Univers 07:00:00 09:33:00 Lawrence BEARD 350.1.13.10 i ty of [facility] 4.2.7.2.686 Neal as [id number] [address] 2022-06-02 2022-06-02 Telephone [facility] [id number] Univers 00:00:00 00:00:00 Izabela TORREZ 350.1.13.10 ity of [place] [id number] Il alpaletty [facility] 188 Branch BUILDING 2022-06-01 2022-06-01 Telephone [facility] 1.2.840.114 [id number] Univers 00:00:00 00:00:00 [facility] 350.1.13.10 it y of ziyad [place] 4.2.7.2.686 Neal as JOEL?BLEA [id number] Il edison EY [address] [place] MEDICAL OFFICE BUILDING 2022-05-30 2022-05-30 Surgery TYE Lynch 1.2.840.114 [id number] Univers 20:00:00 22:46:00 Allan CHIRAG 350.1.13.10 it y of [facility] 4.2.7.2.686 Neal as [id number] [facility] [address] [place] 2022-05-29 2022-05-29 Surgery TYE Lynch 1.2.840.114 [id number] Univers 07:20:00 10:33:00 Allan CHIRAG 350.1.13.10 it y of HOSPITAL 4.2.7.2.686 Neal as [id number] [address] 2022-05-26 2022-05-26 Outpatient R JERRICA [facility] [id number] Univers 09:45:00 09:45:00 ROBINA hooks [facility] 2022-05-24 2022-05-24 Outpatient [facility] [id number] Univers 00:00:00 00:00:00 WOO ity [facility] 2022-05-24 2022-05-24 Prep For [facility] 1.2.840.114 [id number] Univers 00:00:00 00:00:00 Surgery Izabela SHAN 350.1.13.10 ity of [facility] 4.2.7.2.686 [place] [id number] Il dicletty NAL [address] BUILDING 2022-05-23 2022-05-23 Emergency [facility] [id number] Univers 16:40:00 18:12:00 FOLUSHO ity [facility] 2022-05-23 2022-05-23 Emergency X [facility] E[facility] [id number] Univers 16:40:00 18:12:00 [facility]HO [facility] 2022-05-23 2022-05-23 Emergency [facility] 1.2.840.114 [id number] Univers 16:40:00 18:12:00 [facility] [place] 350.1.13.10 ity of [place] 4.2.7.2.686 [place] [id number] [address] 2022-05-23 2022-05-23 Emergency [facility] [id number] Univers 03:49:00 06:12:00 Carlos Costa [facility] 350.1.13.10 ity of [facility] 4.2.7.2.686 [place] [id number] [address] 2022-05-23 2022-05-23 Telephone [facility] 1.2.840.114 [id number] Univers 00:00:00 00:00:00 [facility] 350.1.13.10 it y of José Miguel [facility] 4.2.7.2.686 Neal as JOEL?BLEA [phone] Il dical KNEY [address] [place] MEDICAL OFFICE BUILDING 2022-05-19 2022-05-19 Outpatient R IZABELA PHAM [facility] [id number] Univers 09:30:00 10:37:40 IZABELA PHAM [facility] 2022-05-19 2022-05-19 Office [facility] 1.2.840.114 [id number] Univers 09:30:00 10:37:40 Visit Izabela TORREZ 350.1.13.10 ity of [place] 4.2.7.2.686 [place] [id number] Il dical [address] 2022-05-19 2022-05-19 Orders Doctor LAKESHIA 1.2.840.114 [id number] Univers 00:00:00 00:00:00 Only Unassigned, CHIRAG 350.1.13.10 ity of [facility] 4.2.7.2.686 Neal as [id number] [address] 2022-05-17 2022-05-17 Outpatient R ROGER [facility] [id number] Univers 08:00:00 08:57:35 WOO [facility] 2022-05-17 2022-05-17 Orders Doctor ASHER 1.2.840.114 [id number] Univers 00:00:00 00:00:00 Only Unassigned, CHIRAG 350.1.13.10 ity of [facility] 4.2.7.2.686 Nael as [id number] [address] 2022-05-16 2022-05-16 Orders Doctor LAKESHIA 1.2.840.114 [id number] Univers 00:00:00 00:00:00 Only Unassigned, CHIRAG 350.1.13.10 ity of [facility] 4.2.7.2.686 Neal as [id number] [address] 2022-05-05 2022-05-05 Out[facility] [id number] Univers 10:00:00 10:00:00 ROBINA [facility] 2022-05-05 2022-05-05 [facility]phone [facility] 1.2.840.114 [id number] Univers 00:00:00 00:00:00 [facility] 350.1.13.10 it y of José Miguel TORREZ 4.2.7.2.686 Neal as JOEL?BLEA [id number] [address] OFFICE [facility] 2022-05-04 2022-05-04 Orders Doctor LAKESHIA 1.2.840.114 [id number] Univers 00:00:00 00:00:00 Only Unassigned, CHIRAG 350.1.13.10 ity of [facility] 4.2.7.2.686 Neal as [id number] [address] 2022-05-03 2022-05-03 Office [facility] 1.2.840.114 [id number] [facility] 09:45:00 10:15:00 Visit [facility] 350.1.13.10 it y of José Miguel [place] 4.2.7.2.686 Neal as JOEL?BLEA [id number] [address] OFFICE [facility] 2022-05-03 2022-05-03 Outpatient R JERRICA [facility] [id number] [facility] 09:45:00 09:45:00 ROBINA ity [facility] 2022-04-22 2022-04-22 Orders Doctor LAKESHIA 1.2.840.114 [id number] Univers 00:00:00 00:00:00 Only Unassigned, CHIRAG 350.1.13.10 ity of [facility] 4.2.7.2.686 Neal as [id number] [address] 2022-04-22 2022-04-22 Telephone [facility] 1.2.840.114 10 [id number] Univers 00:00:00 00:00:00 Strahil T [place] 350.1.13.10 ity of [facility] 4.2.7.2.686 [place] [id number] [address] 2022-04-13 2022-04-13 Office [facility] [id number] Univers 09:30:00 10:00:00 Visit Strahilawson T [place] 350.1.13.10 ity of [place] 4.2.7.2.686 [place] [id number] [address] 2022-04-13 2022-04-13 Outpatient R DAWSON CHOUDHURY [facility] [id number] Univers 09:30:00 09:30:00 DAWSON CHOUDHURY ity of [facility] 2022-04-13 2022-04-13 Orders Doctor LAKESHIA 1.2.840.114 [id number] Univers 00:00:00 00:00:00 Only Unassigned, CHIRAG 350.1.13.10 ity of [facility] 4.2.7.2.686 Neal as [id number] [address] 2022-04-13 2022-04-13 Telephone [facility] 1.2.840.114 10 [id number] Univers 00:00:00 00:00:00 Dawson Decker MULTISPEC 350.1.13.10 ity of [place] 4.2.7.2.686 [place] [facility] [id number] [facility] AND [place] [id number] [place] [facility] 2022-04-07 2022-04-07 Office [facility] 1.2.840.114 [id number] Univers 10:30:00 11:02:20 Visit [facility] 350.1.13.10 it y of Edward [facility] 4.2.7.2.686 Neal as JOEL?BLEA [id number] [address] MEDICAL OFFICE BUILDING 2022-04-07 2022-04-07 Out[facility] [id number] Univers 10:30:00 10:30:00 ROBINA ity [facility] 2022-04-06 2022-04-06 Telephone [facility] 1.2.840.114 [id number] Univers 00:00:00 00:00:00 [facility] 350.1.13.10 it y of Edward [place] 4.2.7.2.686 Neal as JOEL?BLEA [id number] [address] MEDICAL OFFICE BUILDING 2022-04-02 2022-04-02 Institutional Commodity Analyst 1, [facility] Sleep Lab Bed [facility] 1. 2.840.114 [id number] Univers 20:00:00 22:30:00 Visit Dawson Choudhury [place] 350.1.13. 10 ity of DANIZABELA 4.2.7.2.686 [facility] [id number] [facility] [address] 2022-04-02 2022-04-02 Outpatient R BINU CHOUDHURYSDLawson [facility] [id number] Univers 20:00:00 20:00:00 DAWSON CHOUDHURY ity of [facility] 2022-04-02 2022-04-02 Orders Doctor ASHER 1.2.840.114 [id number] Univers 00:00:00 00:00:00 Only Unassigned, CHIRAG 350.1.13.10 ity of [facility] 4.2.7.2.686 Neal as [id number] [facility] [address] 2022-03-24 2022-03-24 [facility] 1.2.840.114 10 [id number] Univers 08:01:23 23:59:00 Encounter DWAYNEDAVIDE 350.1.13.10 ity of [facility] 4.2.7.2.686 [facility] [id number] [facility] [address] 2022-03-24 2022-03-24 Outpatient R [facility] [id number] Univers 07:57:08 08:00:00 DELROY ity [facility] 2022-03-24 2022-03-24 [facility] 1.2.840.114 [id number] Univers 07:57:08 08:00:00 Encounter Delroy TORREZ 350.1.13.10 ity of [place] 4.2.7.2.686 [facility] [id number] [facility] [address] 2022-02-16 2022-02-16 [facility] 1.2.840.114 [id number] Univers 00:00:00 00:00:00 [facility] 350.1.13.10 it y of José Miguel TORREZ 4.2.7.2.686 Neal as JOEL?BLEA [id number] [place] alpa[address] MEDICAL OFFICE BUILDING 2022-02-15 2022-02-15 Orders Doctor ASHER 1.2.840.114 [id number] Univers 00:00:00 00:00:00 Only Unassigned, CHIRAG 350.1.13.10 ity of [facility] 4.2.7.2.686 Neal as [id number] [address] 2022-02-03 2022-02-03 Orders Doctor LAKESHIA 1.2.840.114 [id number] Univers 00:00:00 00:00:00 Only Unassigned, CHIRAG 350.1.13.10 ity of [facility] 4.2.7.2.686 Neal as [id number] [address] 2022-02-02 2022-02-02 Office [facility] 1.2.840.114 [id number] Univers 09:30:00 09:45:00 Visit [facility] 350.1.13.10 it y of [place] 4.2.7.2.686 Neal as JOEL?BLEA [id number] [address] OFFICE [facility] 2022-02-02 2022-02-02 [facility] [id number] Univers 09:30:00 09:40:22 [facility] 2022-01-17 2022-01-17 Orders Doctor LAKESHIA 1.2.840.114 [id number] Univers 00:00:00 00:00:00 Only Unassigned, CHIRAG 350.1.13.10 ity of [facility] 4.2.7.2.686 Neal as [phone] [address] 2022-01-03 2022-01-03 Office [facility] 1.2.840.114 [id number] Univers 09:15:00 09:30:00 Visit [facility] 350.1.13.10 it y of Edward [place] 4.2.7.2.686 Neal as JOEL?BLEA [phone] [address] OFFICE [facility] 2022-01-03 2022-01-03 Outpatient [facility] [id number] Univers 09:15:00 09:15:00 [facility] 2021-12-08 2021-12-08 Office [facility] 1.2.556.416 [id number] Univers 10:20:00 10:40:00 Visit Dawson TORREZ 350.1.13.10 ity of [place] [phone] [place] alpaletty DEEPA 085 [facility] 2021-12-08 2021-12-08 Outpatient R BONIBINU PÉREZSDLawson [facility] [id number] Univers 10:20:00 10:20:00 DAWSON CHOUDHURY [facility] 2021-12-08 2021-12-08 Outpatient R BONIBINU PÉREZSDLawson [facility] [id number] Univers 10:20:00 10:20:00 BONIBINU PÉREZSDLawson [facility] 2021-12-08 2021-12-08 Orders Doctor LAKESHIA 1.2.840.114 [id number] Univers 00:00:00 00:00:00 Only Unassigned, CHIRAG 350.1.13.10 ity of [facility] 4.2.7.2.686 Neal as [phone] [address] 2021-12-02 2021-12-02 Office Jerrica [facility] 1.2.840.114 [id number] Univers 11:00:00 11:15:00 Visit [facility] 350.1.13.10 it y of José Miguel TORREZ 4.2.7.2.686 [place] JOEL?BLEA [phone] [place] alpaletty LOAIZA [address] [place] MEDICAL OFFICE [facility] 2021-12-02 2021-12-02 Outpatient R JERRICA [facility] [id number] Univers 11:00:00 11:00:00 ROBINA [facility] 2021-11-25 2021-11-25 Outpatient R MACEY BINUSDLawson [facility] [id number] Univers 20:00:00 20:00:00 MACEYMARYLINLawson [facility] 2021-11-22 2021-11-22 Outpatient R MACEY [facility] [id number] Univers 10:15:00 10:15:00 MACEY BINUSDLawson [facility] 2021-11-04 2021-11-04 Institutional Commodity Analyst Tech, [facility] 1.2 .840.114 [id number] Univers 10:00:00 10:15:00 Visit Dawson Choudhury ANGLEDAVIDE 350.1.13. 10 ity of [place].7.2.[place] [phone] [facility] [address] 2021-11-04 2021-11-04 Outpatient R DAWSON CHOUDHURY [facility] [id number] Univers 10:00:00 10:00:00 DAWSON CHOUDHURY ity of [facility] 2021-11-04 2021-11-04 Orders Doctor LAKESHIA 1.2.840.114 [id number] Univers 00:00:00 00:00:00 Only Unassigned, CHIRAG 350.1.13.10 ity of [facility] 4.2.7.2.686 [place] [phone] [place] [address] [address] 2021-11-02 2021-11-02 Outpatient R JERRICA [facility] [id number] Univers 09:30:00 10:02:11 ROBINA it[facility] 2021-11-02 2021-11-02 [facility] 1.2.840.114 [id number] Univers 09:30:00 09:45:00 Visit [facility] 350.1.13.10 it y of José Miguel TORREZ 4.2.7.2.686 [place] as JOEL?BLEA [phone] [place] edison LOAIZA [address] [place] [address] MEDICAL OFFICE BUILDING 2021-11-02 2021-11-02 Telephone [facility] 1.2.840.114 [id number] Univers 00:00:00 00:00:00 Dawson Decker MULTISPEC 350.1.13.10 ity of [place] 4.2.7.2.686 [place] [phone] [facility] AND JONAH [address] [place] [facility] 2021-10-07 2021-10-07 Telephone [facility] 1.2.840.114 [id number] Univers 00:00:00 00:00:00 [facility] 350.1.13.10 it y of [place] 4.2.7.2.686 Neal as JOEL?BLEA [phone] [address] MEDICAL OFFICE [facility] 2021-10-05 2021-10-05 Outpatient R JERRICA [facility] [id number] Univers 14:15:00 14:43:53 ROBINA y [facility] 2021-10-05 2021-10-05 Office Jerrica [facility] 1.2.840.114 [id number] Univers 14:15:00 14:30:00 Visit [facility] 350.1.13.10 it y of ziyad [place] 4.2.7.2.686 Neal as JOEL?BLEA [phone] [address] OFFICE [facility] 2021-10-05 2021-10-05 Outpatient R JERRICA [facility] [id number] Univers 14:15:00 14:15:00 ROBINA [facility] 2021-09-22 2021-09-22 Office [facility] 1.2.083.809 [id number] Univers 13:40:00 14:00:00 Visit Dawson TORREZ 350.1.13.10 ity [facility] [place].2.7.2.[place] [phone] [address] 2021-09-22 2021-09-22 Outpatient R MACEY [facility] [id number] Univers 13:40:00 13:40:00 BONIBETO [facility] 2021-09-22 2021-09-22 Outpatient R MACEY [facility] [id number] Univers 13:40:00 13:40:00 BONISANGITA [facility] 2021-09-21 2021-09-21 Letter LAKESHIA Morales 1.2.840.114 [id number] Univers 00:00:00 00:00:00 (Out) Erma BEARD 350.1.13.10 it y of [facility] 4.2.7.2.686 [place] as [phone] [address] 2021-09-20 2021-09-20 Outpatient R JOEL [facility] [id number] Univers 15:00:00 15:33:41 MAGDALENE hooks o familia [facility] 2021-09-20 2021-09-20 Urgent Magdalene Maldonado [facility] 1.2.840. 114 [id number] Univers 15:00:00 15:33:41 Care Joe Post [facility] 350.1.13.10 ity of [place] 4.2.7.2.686 Neal as JOEL?BLEA [phone] [facility] [address] [place] MEDICAL OFFICE BUILDING 2021-09-20 2021-09-20 Outpatient R [facility] [id number] Univers 15:00:00 15:33:41 MAGDALENE hooks o familia [facility] 2021-09-15 2021-09-15 Outpatient R [facility] [id number] Univers 11:15:00 11:37:11 ROBINA [facility] 2021-09-15 2021-09-15 Office [facility] 1.2.840.114 [id number] Univers 11:15:00 11:30:00 Visit [facility] 350.1.13.10 it y of [place] 4.2.7.2.686 [place] as JOEL?BLEA [phone] [address] MEDICAL OFFICE [facility] 2021-09-15 2021-09-15 Outpatient R [facility] [id number] Univers 11:15:00 11:15:00 ROBINA [facility] 2021-06-30 2021-06-30 Orders Doctor ASHER 1.2.840.114 [id number] Univers 00:00:00 00:00:00 Only Unassigned, CHIRAG 350.1.13.10 ity of [facility] 4.2.7.2.686 [place] as [phone] [address] 2021-05-24 2021-05-24 Telephone [facility] 1.2.840.114 [id number] Univers 00:00:00 00:00:00 [facility] 350.1.13.10 it y of [place] 4.2.7.2.686 Neal as JOEL?BLEA [phone] [address] OFFICE BUILDING 2021-05-11 2021-05-11 Outpatient Zeke ENMANUELANJUM [facility] [id number] Univers 11:45:00 11:45:00 ROBINA hooks [facility] 2021-03-31 2021-04-02 Emergency Vicente CORBIN [facility] ERT [id number] Univers 09:05:00 07:46:00 CARLOS jessee [facility] 2021-03-31 2021-04-02 Emergency Ladonna Bryant [facility] 1.2.8 40.114 [id number] Univers 09:05:00 07:46:00 EmeraldLeevannessa Zhen RICEDAVIDE 350.1.13.10 ity [facility] 4.2.7.2.686 [facility] [phone] [address] 2020-12-21 2020-12-21 Emergency Vicente [facility]OEYAC[facility] [id number] Univers 12:12:00 16:04:00 MICHAELANGELLA hooks [facility] 2020-12-21 2020-12-21 Emergency [facility] 1.2.560.873 [id number] Univers 12:12:00 16:04:00 Michael RICEDAVIDE 350.1.13.10 i ty [facility] 4.2.7.2.686 [facility] [phone] [address] 2020-12-10 2020-12-10 Outpatient Zeke BECERRIL [facility] [id number] Univers 09:00:00 09:00:00 ROBINA hooks [facility] 2020-12-08 2020-12-08 Emergency AngelladestinycatrachoACOMA[facility] 1.2.755.351 [id number] Univers 05:45:00 08:15:00 Carlos Costa Ovid 350.1.13.10 ity [facility] 4.2.7.2.686 [facility] [phone] [address] 2020-12-08 2020-12-08 Emergency Vicente BLANECATRACHOACOMA[facility] ERT [id number] Univers 05:45:00 08:15:00 CARLOS [facility] 2020-11-10 2020-11-10 Outpatient [facility] [id number] Univers 13:10:00 13:10:00 ity of [facility] 2020-11-10 2020-11-10 Outpatient Zeke CHARLESEDIANJUM [facility] [id number] Univers 09:30:00 10:05:31 ROBINA ity of [facility] 2020-11-10 2020-11-10 Office Jerrica [facility] 1.2.840.114 [id number] Univers 09:22:11 09:52:11 Visit [facility] 350.1.13.10 it y of José Miguel [place] 4.2.7.2.686 [place] as Joel?Blea [phone] [address] Medical Office Building 2020-09-19 2020-09-19 Outpatient [facility] 456 997 [place] 03:24:00 03:24:00 E__ [id number] Medica l Group 2020-09-04 2020-09-04 Orders Doctor ASHER 1.2.840.114 [id number] Univers 00:00:00 00:00:00 Only UnassignedCHIRAG 350.1.13.10 ity of [facility] 4.2.7.2.686 Neal as [phone] [facility] [address] [place] 2020-08-22 2020-08-22 Outpatient [facility] 456 99 [place] 05:19:00 05:19:00 E__ [id number] Medica l Group 2020-08-17 2020-08-17 Outpatient Zeke LOPEZ [facility] [id number] Univers 09:00:00 09:00:00 WONDIFUL ity o f [facility] 2020-08-06 2020-08-07 Hospital Edgard Leo 1.2.840.1 [id number] Univers 13:41:00 23:00:00 Encounter Magali Curtis 350.1.13.10 ity of [facility] 4.2.7.2.686 Neal as [phone] [facility] [address] [place] 2020-08-03 2020-08-05 Emergency Ted Lion 1.2.840. 114 [id number] Univers 08:54:00 16:11:00 Allen Maravilla 350.1.13.10 ity of [facility] 4.2.7.2 .686 [place] [id number] [facility] [address] 2020-07-31 2020-07-31 Emergency [facility] 1.2.840.114 [id number] Univers 08:39:00 14:39:00 Ladonna Torrez 350.1.13.10 ity of [place]le 4.2.7.2.686 [facility] [id number] [facility] [address] 2020-07-25 2020-07-25 Outpatient [facility] 456 997- [place] 06:29:00 06:29:00 E__ [id number] Medica l Group 2020-07-24 2020-07-24 Outpatient [facility] 456 997- [place] 11:00:00 11:00:00 E_MD_ [id number] Medica l Group 2020-06-08 2020-06-08 Emergency [facility] 1.2.921.984 [id number] 6577 [facility] 13:48:00 17:01:00 Ted Torrez 350.1.13.10 i ty of [place] 4.2.7.2.[address] [place] [address] [phone] [facility] [address] [place] 2020-01-28 2020-01-28 Outpatient JAM, [facility] [id number] [address] [place] [address] 00:00:00 00:00:00 [facility] 2020-01-20 2020-01-20 Outpatient EGBULEMARK, [facility] [id number] [place] 11:36:00 16:26:30 [facility] 2019-10-29 2019-10-31 Inpatient [place], [facility] 089 [id number] 24 [place] 00:00:00 00:00:00 YASMINE [place] meghann 2019-03-12 2019-03-12 Hospital JEVON [place] 1.2.840.114 [id number] Univers 14:43:00 23:59:00 Encounter Pato [facility] 350.1.13.10 ity of 4.2.7.2.686 [facility] [id number] [facility] [address] 2019-03-11 2019-03-12 Hospital Sergio, [facility] 1.2.840.114 [id number] Univers 15:17:00 17:21:00 Encounter Pato Marina [facility] 350.1.13.10 it[place] [phone] [facility] [address] 2019-03-11 2019-03-12 Office Surgery, [facility] 1.2.8 40.114 [id number] Univers 09:09:17 08:54:29 [facility] 350.1.13.10 ity of [place] 4.2.7.2.686 [place] [phone] [facility] [address] 2018-10-31 2018-10-31 Office Surgery, [facility] 1.2. 840.114 [id number] Univers 08:41:29 09:11:29 Visit Nereida [facility] 350.1.13.10 it[place] [phone] [facility] [address] 2014-07-22 2014-07-22 [facility] [id number] [place] 17:51:00 21:57:00 Emergency r [place] 00 l [facility] 2014-07-22 2014-07-22 [facility] [id number] [place] 17:51:00 21:57:00 Emergency r Titi 00 l [facility] 2014-07-22 2014-07-22 Outpatient Griffin 2.16.840. 2.16.840.1 . [id number] 12:51:00 16:57:00 Christy 1.783222. 522804.3.61 00 Radhika 3.615.0.1 5.0.101 01 Results Test Description Test Time Test Comments Results Result Comments Source SURGICAL PATHOLOGY EXAM 2022-06-07 19:37:37 Test Item Value Reference Range Interpretation Comme nts Case Report (test code = 8704251495) Surgical Pathology ?Case: [id number] ? Authorizing Provider: ?Lawrence Peterson MD ?Collected: ? 06/03/2022 1042 ?Ordering Location: ? ? [facility] OR ? Received: ?06/03/2022 1154 ? Department ? Pathologist: ? Tatyana Monroe, ? MD PhD ? Specimen: ? ?OTHER, IVC FOREIGN BODY ? Final Diagnosis (test code = r6txpJOdHCTzr7aiUPUnyJLiRoTqUjJpWmYdHe [facility] [id number]) XwMVvvjnUwYLomnIpkTBAsFGJuXV2wkKvmgJu3aQwz OZPiraD3hNGfZYphy7hdIIG5f3hfgrglPQCjPWnlNf 4gjFFeeQlbPmMbDHUrHOe1nS78OMJavN1leKWhSEw0 KUCmfYIbnsRlYbNfKYZgyFYjmZY2ENWsNI4smrfnWE lrJFeeQTZidzC4ZDWpgMIzA1MdJNQxEC7lowrlYPH5 RLkvNNNhXSB0NvRfYDQzd9Ripdg3BuZyaWGpSCrhbA RphfdgoiRjUXXvvaTORqWHCNFFMOucYfPYR9FFBVMQ PqNSLcDGKflQUxIAGP5MFGZUYxFrMb0BFInRJpSBP9 JEQqGczUBsEVWuFTBdAG5MKKGPSZrATI5NKJmEUBhn CBCQIOHQQDWJMdLOW6VSLuYrB3sDFCQJPvRVTvyNOs CPEJ5XCYQZYkNdLczWYQXPYBleNRHzRNDcDOZnM6Ly [file] Final Diagnosis Comment (test code = s5qwfUXyPVSryBBvJZBfZbn esmPiBYGxeIWmG2Deyw [id number]) eeAMwvQW1wCK5kjHqdfTMxnUKkYYYfMhZuh6pma301 hYGxm1qlUFDDjxilmKp1dDygK29uk8J2OjatS7vxGR W9PJxjktUbxdArKITlgHM3EPdemoAdVmP2EHalULPc WpH1KBWqsNIcXAX0oHdyHUBnorscJtG6XTspJVYqec jvMTx9PSfaPLIkeUO6EIRfzNBwA4WfCXKbTZ4gzws0 HVX0WMsiIEKsTeE4RMCstNEfTEDtpGmcZIwam127RJ R4AvVzBOJkzeBocGnhpX0dMgQwCArsNyArH8qhQkZd sTUuuIUaVGKkUBJiZh85YMCjiNNzoA0oozJenDS5PS BxOQGyRQQ3RaihU2EkQCU2lzRovv4gxaEocOJkgE6c qFposoTjjad4UYP8bWFnZOUypqViypCnz8Q4DVYay3 K5CTVvw7MldEofzk0mG35zfZMhXIQsjNXykPvqnm0l CVHeqApvZDWaMVMeaOXvANdoDY7cFUXhXQXws8Bhz6 UbHQBinqSbo02mimcinNjtFEDwIJIcomEjU8MsfHns WVUdj0KwxYF2fA0mg9muc3CjTQGtxa0= Clinical Information (test code = Acute deep vein thrombosis (DVT) of iliac 3926434340) vein of both lower extremities [I82.423] Gross Description (test code = r3piaQNkJQJxsRCvCFIqBittlfBmXXXboSVq Z3Bhcl 1803422648) bmCRvxUX7eLG6ncRxejXQtuHAnHZWzQeIga2uvp386 wXWib8fzIYVSalzrxIf2iFldX76nc8V6DmciP76pvC ItASM8YVYaOTRmlRQaGDZoCRD1KBQcwXTxW8meSTTx AD2fqweqBBjmABveHCSffSM8LECoaEJyL9JaKARvRT crHJFdwqj0UoMqLx9ldCOwnAzaJAveMgeymOfqa3Rp qWBmLYuhLTOqVSRsZAmeNAAuG2KEHTZpHbl0OGRfDS YaDzBEBVI6JuX1JQAnOOZKTZBeFWabQNH9SsekXtKB VxCsWARlSFFvNEHdPTPiRI2gCYmlrQMwOZvvNicbVM nyH511OIaeUCFdK7BuX6JfLInmYMM0RKYuXnBpBIMx CJ6IYbZlAIC2VBCfJvXkDGf2NMh5UN6VUmWtWYFsGq F7TbRpKIMnECz0UNmcEK9ORCH9EGNzUja5UPsqURI8 PVYyAFi0WXFzEHwfdqMqQNdlHgurIEakB11qwLLyTJ xwbGFpblxmczIwIFNQRUNJTUVOIEFccGFyXHBhcmRc t0LmZNtofBgmONOfOhKapJnumU3wIxDkBTJOsZPhrV 6thpXKXIgkABHtF9IjxhPzUKOxRIIkZLwtZoJarLRf LLoyzJxitOcqMXHsoLsgxkKzH1F1fbHxZP1sYCZXPG UwiY3pEKAzZTKvPMIDPFCjvwAvU00iEx6goFetVmKw O7M4XXXpRAJxw77bjGS4cvJpQoPfEX1kxXRhuTorFL 86oAWafXVvfqhwFTSkAIRkM8PvAIGdwnonCQIoXH11 PJtzTv6jKJcjQL93WMRtEFosU4Flo9TmwQVid98lsG W2BP93XNhjcUxtJG5zgU4fUMNoo4RofcCkYGWbQKTn NCKigGHpbh4zVEvrg7KoIJ1xMOqgIOairCqrvU1ogt YogHAdRVSfCFDoy0HlEkSVlBHzl4BkB2tgDC8kbTEn Mh6jDLcjm9OsAUU3YP1vscU0bK3jLH2flOxxKMqgKW EqaXRdCGrvjdUiEQVtyppmYPLmBCRfyNCKu6NrVMFL lAcaSOBHN4qdzTGwPDqtCKRUYGfNW4UAEHueMDPfC5 IhF4OdmhT3e1lzvMpvl5WmmBIfRN6yqQPkiT== Disclaimer (test code = [id number]) s9pzvWCaIPDdm3uwHREzaTPtHsZw MzNcZnRuYmpcdW GmGZjrkdDqJNlmi5LjT4QvYgYkIZranrCuJCSfXrft vupaIOSmVUU2zpFcQRRaWAbuESRvYNxgXy1lvTNxqN knWgTmVFJbg1qyijBFDKsnAjXcW159DPBsKMmps0ng u0KyUOJwwCEdh2A7GBMFydeewDc5qLrnN75au6B3Sd erD7agWKBoQVPvU2MoLT9pEYQhRrt9EUU0PWP0ANLc KTBxZ8FiKW8lXVBigNZyBKa4o0ufwQdtFITnQSL6h4 haKUwatdHwJB5iuz2ylTj7v8bewtFlRBKfBSDkzRNU LGSfR1EbzCnjMn9grJo3nLbxBxjbNXE9Zms7UN6ayy 67eev8fCljOPSrkibgZnM0FZasUSCmxasvOTa7URrf NBMkfDN8JVVkaXHsX3NlZJTlCV4bbbk9ABN6HYpqDG JcFgA7LNNlpPDzEIOmgGhgFMuva853RQQ6OvYvCF1v O6Rbc0B6zF4obBUwFNMsyDXbGtUvISGpas6ssCJiWH tgz4TqZYD6lqB8rEClsVWcMRLaAL48Gsrmt0JoTzjh l3QzC34uwXM8AMzbq2fgWP0nJjZ8ioBwRBros6wbgC 4tShC7ASowYV5fSE3eJAUnfL2horsqGDByZwBexsxz PTNnbDcxpeDxCi8muSdnIYO0UWkwC5ipxQ9mWfP1LI ypC0ogaG1vNOl9BVralFE8OBTpiA5nQZ4qhhrug5uq HOyeLKlgQEGasbM4ziU7LMKngSOaR0OekT1xMXQtLW 4smtwxc9hcUAF5QJdrUZQxUQH5WiCzESMdy4Qyczg8 IvZuw0XseZCvQZeoJ56kp765LBXcuwSnE9oisXPqyj iaoAXdxiqvBVwlwzI1DOAjfiVkm9WcYVSoMVC8CCpx GHugwFWkAMJwlGmmv5htJ2HxnQHpDIFqIStmGAUcHW ZzMjBcbGFuZzEwMzNcaGljaFxmMVxkYmNoXGYxXGxv [file] RxTAfdSLQ7gR== Embedded Images (test code = 3821320666) [facility] METABOLIC PANEL (NA, K, CL, CO2, GLUCOSE, BUN, CREATININE, CA)2022-06-07 09:52:38 Test Item Value Reference Range Interpretation Comments NA (test code = 135 mmol/L 135-145 1179425525) K (test code = 4.0 mmol/L 3.5-5.0 8330005238) CL (test code = 104 mmol/L 98-108 7093456547) CO2 TOTAL (test code = 25 mmol/L 23-31 5867122413) AGAP (test code = 6 2-16 4155801839) BUN (test code = 16 mg/dL 7-23 8010550170) GLUCOSE (test code = 144 mg/dL 70-110 H 3367987786) CREATININE (test code = 1.10 mg/dL 0.60-1.25 1375756410) CALCIUM (test code = 8.4 mg/dL 8.6-10.6 L 7976073907) eGFR (test code = 68.5 mL/min/1.73m2 9635314128) DEWAYNE (test code = DEWAYNE) Association of Glomerular Filtration Rate (GFR) and Staging of Kidney Disease* + --+ --+ ------+| GFR (mL/min/1.73 m2) ?| With Kidney Damage ?| ?Without Kidney Damage+ --------+ --------+ +| ?>90 ?| ?Stage one ?| ? Normal ?+ ---+ ---+ -------+| ?60-89 ?| ?Stage two ?| ? Decreased GFR ? + --+ --+ ------+| ?30-59 ?| ?Stage three ?| ? Stage three ? + --+ --+ ------+| ?15-29 ?| ?Stage four ? | ? Stage four ?+ ---+ ---+ -------+| ?<15 (or dialysis) ? ?| ?Stage five ? | ? Stage five ?+ ---+ ---+ -------+ *Each stage assumes the associated GFR level has been in effect for at least three months. ?Stages 1 to 5, with or without kidney disease, indicate chronic kidney disease. Notes: Determination of stages one and two (with eGFR >59mL/min/1.73 m2) requires estimation of kidney damage for at least three months as defined by structural or functional abnormalities of the kidney, manifested by either:Pathological abnormalities or Markers of kidney damage (including abnormalities in the composition of the blood or urine or abnormalities in imaging tests). Lab Interpretation Abnormal (test code = 94134-9) [facility]38 Test Item Value Reference Range Interpretation Comments MAGNESIUM (test code = 4859894469) 2.5 mg/dL 1.7-2.4 H Lab Interpretation (test code = Abnormal 26065-6) [facility] 09:52:38 Test Item Value Reference Range Interpretation Comments PHOSPHORUS (test code = 3087811052) 3.9 mg/dL 2.5-5.0 Lab Interpretation (test code = Normal 54786-7) [facility] WITH [id number] 12:15:07 Test Item Value Reference Range Interpretation Comments WBC (test code = 6.35 See_Comment [Automated 2200-2) message] The sy stem which generated this result transmitted reference range : 4.20 - 10.70 10*3/?L. The reference range was not used to interpret this result as normal/abnormal . RBC (test code = 2.65 See_Comment L [Automated 499-8) message] The sy stem which generated this result transmitted reference range : 4.26 - 5.52 10*6/?L. The reference range was not used to interpret this result as normal/abnormal . HGB (test code = 7.8 g/dL 12.2-16.4 L 718-7) HCT (test code = 23.8 % 38.4-49.3 L 4544-3) MCV (test code = 89.8 fL 81.7-95.6 787-2) MCH (test code = 29.4 pg 26.1-32.7 785-6) MCHC (test code = 32.8 g/dL 31.2-35.0 786-4) RDW-SD (test code = 51.5 fL 38.5-51.6 55092-8) RDW-CV (test code = 15.9 % 12.1-15.4 H 788-0) PLT (test code = 115 See_Comment L [Automated 777-3) message] The sy stem which generated this result transmitted reference range : 150 - 328 10*3/ ?L. The reference r mitra was not used to interpret this result as normal/abnormal . MPV (test code = 9.9 fL 9.8-13.0 86254-3) IPF % (test code = 2.9 % 1.2-10.7 Platelet count [id number]) measured by fluorescence method. NRBC/100 WBC (test 0.3 See_Comment [Automat ed code = [id number]) message] The system which generated this result transmitted reference range : 0.0 - 10.0 /100 WBCs. The refer ence range was not u sed to interpret th is result as normal/abnormal . NRBC x10^3 (test code 0.02 See_Comment [Auto mated = [id number]) message] The s ystem which generated this result transmitted reference range : 10*3/?L. The reference range was not used to interpret this result as normal/abnormal . GRAN MAT (NEUT) % 60.5 % (test code = 770-8) IMM GRAN % (test code 1.70 % = 8276377983) LYMPH % (test code = 24.7 % 736-9) MONO % (test code = 8.7 % 5905-5) EOS % (test code = 3.9 % 713-8) BASO % (test code = 0.5 % 706-2) GRAN MAT x10^3(ANC) 3.84 10*3/uL 1.99-6.95 (test code = [id number]) IMM GRAN x10^3 (test 0.11 10*3/uL 0.00-0.06 H code = [id number]) LYMPH x10^3 (test code 1.57 10*3/uL 1.09-3.23 = 731-0) MONO x10^3 (test code 0.55 10*3/uL 0.36-1.02 = 742-7) EOS x10^3 (test code = 0.25 10*3/uL 0.06-0.53 711-2) BASO x10^3 (test code 0.03 10*3/uL 0.01-0.09 = 704-7) Lab Interpretation Abnormal (test code = 78726-4) [facility] WITH [id number] 12:15:07 Test Item Value Reference Range Interpretation Comments WBC (test code = 6.35 See_Comment [Automated 6690-2) message] The sy stem which generated this result transmitted reference range : 4.20 - 10.70 10*3/?L. The reference range was not used to interpret this result as normal/abnormal . RBC (test code = 2.65 See_Comment L [Automated 789-8) message] The sy stem which generated this result transmitted reference range : 4.26 - 5.52 10*6/?L. The reference range was not used to interpret this result as normal/abnormal . HGB (test code = 7.8 g/dL 12.2-16.4 L 718-7) HCT (test code = 23.8 % 38.4-49.3 L 4544-3) MCV (test code = 89.8 fL 81.7-95.6 787-2) MCH (test code = 29.4 pg 26.1-32.7 785-6) MCHC (test code = 32.8 g/dL 31.2-35.0 786-4) RDW-SD (test code = 51.5 fL 38.5-51.6 97521-3) RDW-CV (test code = 15.9 % 12.1-15.4 H 788-0) PLT (test code = 115 See_Comment L [Automated 777-3) message] The sy stem which generated this result transmitted reference range : 150 - 328 10*3/ ?L. The reference r mitra was not used to interpret this result as normal/abnormal . MPV (test code = 9.9 fL 9.8-13.0 34584-9) IPF % (test code = 2.9 % 1.2-10.7 Platelet count [id number]) measured by fluorescence method. NRBC/100 WBC (test 0.3 See_Comment [Automat ed code = [id number]) message] The system which generated this result transmitted reference range : 0.0 - 10.0 /100 WBCs. The refer ence range was not u sed to interpret th is result as normal/abnormal . NRBC x10^3 (test code 0.02 See_Comment [Auto mated = [id number]) message] The s ystem which generated this result transmitted reference range : 10*3/?L. The reference range was not used to interpret this result as normal/abnormal . GRAN MAT (NEUT) % 60.5 % (test code = 770-8) IMM GRAN % (test code 1.70 % = [id number]) LYMPH % (test code = 24.7 % 736-9) MONO % (test code = 8.7 % 5905-5) EOS % (test code = 3.9 % 713-8) BASO % (test code = 0.5 % 706-2) GRAN MAT x10^3(ANC) 3.84 10*3/uL 1.99-6.95 (test code = 0201035983) IMM GRAN x10^3 (test 0.11 10*3/uL 0.00-0.06 H code = 7746665172) LYMPH x10^3 (test code 1.57 10*3/uL 1.09-3.23 = 731-0) MONO x10^3 (test code 0.55 10*3/uL 0.36-1.02 = 742-7) EOS x10^3 (test code = 0.25 10*3/uL 0.06-0.53 711-2) BASO x10^3 (test code 0.03 10*3/uL 0.01-0.09 = 704-7) Lab Interpretation Abnormal (test code = 70824-2) [facility] Test Item Value Reference Range Interpretation Comments MAGNESIUM (test code = 6952622377) 2.4 mg/dL 1.7-2.4 Lab Interpretation (test code = Normal 61935-2) [facility] Test Item Value Reference Range Interpretation Comments PHOSPHORUS (test code = 5919772760) 4.1 mg/dL 2.5-5.0 Lab Interpretation (test code = Normal 36145-2) [facility] (NA, K, CL, CO2, GLUCOSE, BUN, CREATININE, CA)2022-06-05 11:43:01 Test Item Value Reference Range Interpretation Comments NA (test code = 137 mmol/L 135-145 4124453798) K (test code = 3.8 mmol/L 3.5-5.0 5739429353) CL (test code = 105 mmol/L 98-108 1600142826) CO2 TOTAL (test code = 28 mmol/L 23-31 0291736308) AGAP (test code = 4 2-16 8399442372) BUN (test code = 17 mg/dL 7-23 1197469838) GLUCOSE (test code = 86 mg/dL 70-110 9910169318) CREATININE (test code = 1.06 mg/dL 0.60-1.25 4521375557) CALCIUM (test code = 8.4 mg/dL 8.6-10.6 L 4643258714) eGFR (test code = 71.5 mL/min/1.73m2 0121730452) DEWAYNE (test code = DEWAYNE) Association of Glomerular Filtration Rate (GFR) and Staging of Kidney Disease* + --+ --+ ------+| GFR (mL/min/1.73 m2) ?| With Kidney Damage ?| ?Without Kidney Damage+ --------+ --------+ +| ?>90 ?| ?Stage one ?| ? Normal ?+ ---+ ---+ -------+| ?60-89 ?| ?Stage two ?| ? Decreased GFR ? + --+ --+ ------+| ?30-59 ?| ?Stage three ?| ? Stage three ? + --+ --+ ------+| ?15-29 ?| ?Stage four ? | ? Stage four ?+ ---+ ---+ -------+| ?<15 (or dialysis) ? ?| ?Stage five ? | ? Stage five ?+ ---+ ---+ -------+ *Each stage assumes the associated GFR level has been in effect for at least three months. ?Stages 1 to 5, with or without kidney disease, indicate chronic kidney disease. Notes: Determination of stages one and two (with eGFR >59mL/min/1.73 m2) requires estimation of kidney damage for at least three months as defined by structural or functional abnormalities of the kidney, manifested by either:Pathological abnormalities or Markers of kidney damage (including abnormalities in the composition of the blood or urine or abnormalities in imaging tests). Lab Interpretation Abnormal (test code = 75045-1) [facility] Test Item Value Reference Range Interpretation Comments MAGNESIUM (test code = 9346319559) 2.4 mg/dL 1.7-2.4 Lab Interpretation (test code = Normal 10695-4) [facility]:43:01 Test Item Value Reference Range Interpretation Comments PHOSPHORUS (test code = 3072193794) 4.1 mg/dL 2.5-5.0 Lab Interpretation (test code = Normal 11279-7) [facility] (NA, K, CL, CO2, GLUCOSE, BUN, CREATININE, CA)2022-06-05 11:43:01 Test Item Value Reference Range Interpretation Comments NA (test code = 137 mmol/L 135-145 4477110499) K (test code = 3.8 mmol/L 3.5-5.0 4884436921) CL (test code = 105 mmol/L 98-108 1094630881) CO2 TOTAL (test code = 28 mmol/L 23-31 9320879063) AGAP (test code = 4 2-16 5877118137) BUN (test code = 17 mg/dL 7-23 1054716682) GLUCOSE (test code = 86 mg/dL 70-110 8020987650) CREATININE (test code = 1.06 mg/dL 0.60-1.25 7212703475) CALCIUM (test code = 8.4 mg/dL 8.6-10.6 L 5921451861) eGFR (test code = 71.5 mL/min/1.73m2 8671156865) DEWAYNE (test code = DEWAYNE) Association of Glomerular Filtration Rate (GFR) and Staging of Kidney Disease* + --+ --+ ------+| GFR (mL/min/1.73 m2) ?| With Kidney Damage ?| ?Without Kidney Damage+ --------+ --------+ +| ?>90 ?| ?Stage one ?| ? Normal ?+ ---+ ---+ -------+| ?60-89 ?| ?Stage two ?| ? Decreased GFR ? + --+ --+ ------+| ?30-59 ?| ?Stage three ?| ? Stage three ? + --+ --+ ------+| ?15-29 ?| ?Stage four ? | ? Stage four ?+ ---+ ---+ -------+| ?<15 (or dialysis) ? ?| ?Stage five ? | ? Stage five ?+ ---+ ---+ -------+ *Each stage assumes the associated GFR level has been in effect for at least three months. ?Stages 1 to 5, with or without kidney disease, indicate chronic kidney disease. Notes: Determination of stages one and two (with eGFR >59mL/min/1.73 m2) requires estimation of kidney damage for at least three months as defined by structural or functional abnormalities of the kidney, manifested by either:Pathological abnormalities or Markers of kidney damage (including abnormalities in the composition of the blood or urine or abnormalities in imaging tests). Lab Interpretation Abnormal (test code = 08344-2) [facility] (ALB,T.PRO,BILI T,BU/BC,ALT,AST,ALK PHOS)2022-06-04 08:25:57 Test Item Value Reference Range Interpretation Comments TOTAL BILI (test code = 0298787943) 0.7 mg/dL 0.1-1.1 BILI UNCON (test code = 7060047728) 0.3 mg/dL 0.1-1.1 BILI CONJ (test code = 1250004851) 0.0 mg/dL 0.0-0.3 T PROTEIN (test code = 4428911382) 6.4 g/dL 6.3-8.2 ALBUMIN (test code = 7375796949) 3.7 g/dL 3.5-5.0 ALK PHOS (test code = 7173162324) 105 U/L 34-122 ALTv (test code = 1742-6) 71 U/L 5-50 H AST(SGOT) (test code = 6910809670) 51 U/L 13-40 H Lab Interpretation (test code = Abnormal 97161-8) [facility] (40369[facility] (ALB,T.PRO,BILI T,BU/BC,ALT,AST,ALK PHOS)2022-06-04 08:25:57 Test Item Value Reference Range Interpretation Comments TOTAL BILI (test code = 4397457864) 0.7 mg/dL 0.1-1.1 BILI UNCON (test code = 9834263640) 0.3 mg/dL 0.1-1.1 BILI CONJ (test code = 4935698070) 0.0 mg/dL 0.0-0.3 T PROTEIN (test code = 8958594867) 6.4 g/dL 6.3-8.2 ALBUMIN (test code = 6516693493) 3.7 g/dL 3.5-5.0 ALK PHOS (test code = 6554808174) 105 U/L 34-122 ALTv (test code = 1742-6) 71 U/L 5-50 H AST(SGOT) (test code = 9515268808) 51 U/L 13-40 H Lab Interpretation (test code = Abnormal 36925-7) [facility] [id number] 06:14:08 Test Item Value Reference Range Interpretation Comments TROPONIN I (test code = 0.027 ng/mL <=0.034 0157399504) DEWAYNE (test code = DEWAYNE) Reference (Normal) Range (defined by the 99th percentile reference limit): <= 0.034 ng/mL Note: Cardiac troponin begins to rise 3-4 hours after the onset of ischemia. Repeat in 4-6 hours if the sample was drawn within 3-4 hours of the onset of the symptom and found normal. Diagnosis of myocardial injury is made with acute changes in cTn concentrations with at least one serial sample above the 99th percentile upper reference limit (URL), taken together with the patient's clinical presentation. Biotin has been reported to cause a negative bias, interpret results relative to patient's use of biotin. Lab Interpretation Normal (test code = 76733-3) [facility] [id number] 06:14:08 Test Item Value Reference Range Interpretation Comments TROPONIN I (test code = 0.027 ng/mL <=0.034 0278573928) DEWAYNE (test code = DEWAYNE) Reference (Normal) Range (defined by the 99th percentile reference limit): <= 0.034 ng/mL Note: Cardiac troponin begins to rise 3-4 hours after the onset of ischemia. Repeat in 4-6 hours if the sample was drawn within 3-4 hours of the onset of the symptom and found normal. Diagnosis of myocardial injury is made with acute changes in cTn concentrations with at least one serial sample above the 99th percentile upper reference limit (URL), taken together with the patient's clinical presentation. Biotin has been reported to cause a negative bias, interpret results relative to patient's use of biotin. Lab Interpretation Normal (test code = 33443-1) [facility] WITH [id number] 05:33:25 Test Item Value Reference Range Interpretation Comments WBC (test code = 9.78 See_Comment [Automated 4021-2) message] The sy stem which generated this result transmitted reference range : 4.20 - 10.70 10*3/?L. The reference range was not used to interpret this result as normal/abnormal . RBC (test code = 2.85 See_Comment L [Automated 127-8) message] The sy stem which generated this result transmitted reference range : 4.26 - 5.52 10*6/?L. The reference range was not used to interpret this result as normal/abnormal . HGB (test code = 8.2 g/dL 12.2-16.4 L 718-7) HCT (test code = 25.1 % 38.4-49.3 L 4544-3) MCV (test code = 88.1 fL 81.7-95.6 787-2) MCH (test code = 28.8 pg 26.1-32.7 785-6) MCHC (test code = 32.7 g/dL 31.2-35.0 786-4) RDW-SD (test code = 50.4 fL 38.5-51.6 43213-2) RDW-CV (test code = 15.9 % 12.1-15.4 H 788-0) PLT (test code = 121 See_Comment L [Automated 777-3) message] The sy stem which generated this result transmitted reference range : 150 - 328 10*3/ ?L. The reference r mitra was not used to interpret this result as normal/abnormal . MPV (test code = 8.7 fL 9.8-13.0 L 68083-1) IPF % (test code = 2.3 % 1.2-10.7 Platelet count 6685731091) measured by fluorescence method. NRBC/100 WBC (test 0.6 See_Comment [Automat ed code = 8124096088) message] The system which generated this result transmitted reference range : 0.0 - 10.0 /100 WBCs. The refer ence range was not u sed to interpret th is result as normal/abnormal . NRBC x10^3 (test code 0.06 See_Comment [Auto mated = 2018614973) message] The s ystem which generated this result transmitted reference range : 10*3/?L. The reference range was not used to interpret this result as normal/abnormal . GRAN MAT (NEUT) % 80.9 % (test code = 770-8) IMM GRAN % (test code 4.80 % = 7699734685) LYMPH % (test code = 8.6 % 736-9) MONO % (test code = 5.6 % 5905-5) EOS % (test code = 0.0 % 713-8) BASO % (test code = 0.1 % 706-2) GRAN MAT x10^3(ANC) 7.91 10*3/uL 1.99-6.95 H (test code = 0016736197) IMM GRAN x10^3 (test 0.47 10*3/uL 0.00-0.06 H code = 7089047439) LYMPH x10^3 (test code 0.84 10*3/uL 1.09-3.23 L = 731-0) MONO x10^3 (test code 0.55 10*3/uL 0.36-1.02 = 742-7) EOS x10^3 (test code = 0.06-0.53 L 711-2) BASO x10^3 (test code 0.01-0.09 = 704-7) Lab Interpretation Abnormal (test code = 83690-5) [facility] WITH [id number] 05:33:25 Test Item Value Reference Range Interpretation Comments WBC (test code = 9.78 See_Comment [Automated 6690-2) message] The sy stem which generated this result transmitted reference range : 4.20 - 10.70 10*3/?L. The reference range was not used to interpret this result as normal/abnormal . RBC (test code = 2.85 See_Comment L [Automated 789-8) message] The sy stem which generated this result transmitted reference range : 4.26 - 5.52 10*6/?L. The reference range was not used to interpret this result as normal/abnormal . HGB (test code = 8.2 g/dL 12.2-16.4 L 718-7) HCT (test code = 25.1 % 38.4-49.3 L 4544-3) MCV (test code = 88.1 fL 81.7-95.6 787-2) MCH (test code = 28.8 pg 26.1-32.7 785-6) MCHC (test code = 32.7 g/dL 31.2-35.0 786-4) RDW-SD (test code = 50.4 fL 38.5-51.6 19154-9) RDW-CV (test code = 15.9 % 12.1-15.4 H 788-0) PLT (test code = 121 See_Comment L [Automated 777-3) message] The sy stem which generated this result transmitted reference range : 150 - 328 10*3/ ?L. The reference r mitra was not used to interpret this result as normal/abnormal . MPV (test code = 8.7 fL 9.8-13.0 L 30017-7) IPF % (test code = 2.3 % 1.2-10.7 Platelet count 2719748170) measured by fluorescence method. NRBC/100 WBC (test 0.6 See_Comment [Automat ed code = 8519988235) message] The system which generated this result transmitted reference range : 0.0 - 10.0 /100 WBCs. The refer ence range was not u sed to interpret th is result as normal/abnormal . NRBC x10^3 (test code 0.06 See_Comment [Auto mated = 0769075008) message] The s ystem which generated this result transmitted reference range : 10*3/?L. The reference range was not used to interpret this result as normal/abnormal . GRAN MAT (NEUT) % 80.9 % (test code = 770-8) IMM GRAN % (test code 4.80 % = 6299992979) LYMPH % (test code = 8.6 % 736-9) MONO % (test code = 5.6 % 5905-5) EOS % (test code = 0.0 % 713-8) BASO % (test code = 0.1 % 706-2) GRAN MAT x10^3(ANC) 7.91 10*3/uL 1.99-6.95 H (test code = 4609488716) IMM GRAN x10^3 (test 0.47 10*3/uL 0.00-0.06 H code = 0173343036) LYMPH x10^3 (test code 0.84 10*3/uL 1.09-3.23 L = 731-0) MONO x10^3 (test code 0.55 10*3/uL 0.36-1.02 = 742-7) EOS x10^3 (test code = 0.06-0.53 L 711-2) BASO x10^3 (test code 0.01-0.09 = 704-7) Lab Interpretation Abnormal (test code = 18047-5) [facility] METABOLIC PANEL (NA, K, CL, CO2, GLUCOSE, BUN, CREATININE, CA)2022-06-04 05:32:04 Test Item Value Reference Range Interpretation Comments NA (test code = 136 mmol/L 135-145 8944720431) K (test code = 4.1 mmol/L 3.5-5.0 2587530183) CL (test code = 104 mmol/L 98-108 1657886117) CO2 TOTAL (test code = 25 mmol/L 23-31 1797486477) AGAP (test code = 7 2-16 4514661119) BUN (test code = 19 mg/dL 7- 1929998080) GLUCOSE (test code = 166 mg/dL 70-110 H 9244133591) CREATININE (test code = 1.00 mg/dL 0.60-1.25 6643439868) CALCIUM (test code = 8.8 mg/dL 8.6-10.6 8132563320) eGFR (test code = 76.5 mL/min/1.73m2 6794599372) DEWAYNE (test code = DEWAYNE) Association of Glomerular Filtration Rate (GFR) and Staging of Kidney Disease* + --+ --+ ------+| GFR (mL/min/1.73 m2) ?| With Kidney Damage ?| ?Without Kidney Damage+ --------+ --------+ +| ?>90 ?| ?Stage one ?| ? Normal ?+ ---+ ---+ -------+| ?60-89 ?| ?Stage two ?| ? Decreased GFR ? + --+ --+ ------+| ?30-59 ?| ?Stage three ?| ? Stage three ? + --+ --+ ------+| ?15-29 ?| ?Stage four ? | ? Stage four ?+ ---+ ---+ -------+| ?<15 (or dialysis) ? ?| ?Stage five ? | ? Stage five ?+ ---+ ---+ -------+ *Each stage assumes the associated GFR level has been in effect for at least three months. ?Stages 1 to 5, with or without kidney disease, indicate chronic kidney disease. Notes: Determination of stages one and two (with eGFR >59mL/min/1.73 m2) requires estimation of kidney damage for at least three months as defined by structural or functional abnormalities of the kidney, manifested by either:Pathological abnormalities or Markers of kidney damage (including abnormalities in the composition of the blood or urine or abnormalities in imaging tests). Lab Interpretation Abnormal (test code = 84324-0) [facility] METABOLIC PANEL (NA, K, CL, CO2, GLUCOSE, BUN, CREATININE, CA)2022-06-04 05:32:04 Test Item Value Reference Range Interpretation Comments NA (test code = 136 mmol/L 135-145 8024793268) K (test code = 4.1 mmol/L 3.5-5.0 3533383911) CL (test code = 104 mmol/L 98-108 6553080260) CO2 TOTAL (test code = 25 mmol/L 23-31 3745168307) AGAP (test code = 7 2-16 2687121735) BUN (test code = 19 mg/dL 7-23 3806265838) GLUCOSE (test code = 166 mg/dL 70-110 H 7024058285) CREATININE (test code = 1.00 mg/dL 0.60-1.25 2909898904) CALCIUM (test code = 8.8 mg/dL 8.6-10.6 2776843963) eGFR (test code = 76.5 mL/min/1.73m2 3042475801) DEWAYNE (test code = DEWAYNE) Association of Glomerular Filtration Rate (GFR) and Staging of Kidney Disease* + --+ --+ ------+| GFR (mL/min/1.73 m2) ?| With Kidney Damage ?| ?Without Kidney Damage+ --------+ --------+ +| ?>90 ?| ?Stage one ?| ? Normal ?+ ---+ ---+ -------+| ?60-89 ?| ?Stage two ?| ? Decreased GFR ? + --+ --+ ------+| ?30-59 ?| ?Stage three ?| ? Stage three ? + --+ --+ ------+| ?15-29 ?| ?Stage four ? | ? Stage four ?+ ---+ ---+ -------+| ?<15 (or dialysis) ? ?| ?Stage five ? | ? Stage five ?+ ---+ ---+ -------+ *Each stage assumes the associated GFR level has been in effect for at least three months. ?Stages 1 to 5, with or without kidney disease, indicate chronic kidney disease. Notes: Determination of stages one and two (with eGFR >59mL/min/1.73 m2) requires estimation of kidney damage for at least three months as defined by structural or functional abnormalities of the kidney, manifested by either:Pathological abnormalities or Markers of kidney damage (including abnormalities in the composition of the blood or urine or abnormalities in imaging tests). Lab Interpretation Abnormal (test code = 27195-0) [facility]2022-[facility]-04 05:24:43 Test Item Value Reference Range Interpretation Comments APTT Patient (test code 105 See_Comment [Au tomated message] = 3173-2) The system [employer] generated this result transmitted ref erence range: 26 - 36 Seconds. The reference range was not used to int erpret this result as normal/abnormal . Lab Interpretation (test Abnormal code = 22874-0) [facility] D[facility]2022-06-04 05:24:43 Test Item Value Reference Range Interpretation Comments APTT Patient (test code 105 See_Comment [Au tomated message] = 3173-2) The system [employer] generated this result transmitted ref erence range: 26 - 36 Seconds. The reference range was not used to int erpret this result as normal/abnormal . Lab Interpretation (test Abnormal code = 27764-6) [facility]NA+K+GLU+CA2+2022-06-04 02:57:07 Test Item Value Reference Range Interpretation Comments PH (test code = 2) 7.31 7.35-7.45 L PCO2 (test code = 42 See_Comment [Automate d message] 7429424140) The system [employer] generated this result transmit elizabeth reference range : 35 - 45 mmHg. The reference range was not used to interpret this result as normal/abnormal . PO2 (test code = 144 See_Comment H [Automated message] 5552066376) The system [employer] generated this result transmit elizabeth reference range : 80 - 100 mmHg. The reference range was not used to interpret this result as normal/abnormal . HCO3 (test code = 21 See_Comment L [Automate d message] 3623611688) The system [employer] generated this result transmit elizabeth reference range : 22 - 26 mEq/L. The reference range was not used to interpret this result as normal/abnormal . BE (test code = -4.8 See_Comment L [Automated message] 0541751959) The system [employer] generated this result transmit elizabeth reference range : -3.0 - 3.0 mEq/ L. The reference r mitra was not used to interpret this result as normal/abnormal . THB (test code = 9.6 g/dL 13.5-18.0 L 8067440922) %O2HB (test code = 98.4 % 94.0-99.0 4273033866) %COHB ART (test code = 0.1 % 0.0-1.5 3128468939) %METHB ART (test code = 0.1 % 0.4-1.5 L 7066265711) VOL%O2 ART (test code = 13.6 % 15.0-23.0 L QUES 9804107031) NA (test code = 133 mmol/L 135-145 L 1269425992) K+ (test code = 4.6 mmol/L 3.5-5.0 6589038784) AC CA IONZ (test code = 4.40 mg/dL 4.50-5.30 L 8496120707) GLUCOSE (test code = 148 mg/dL 70-110 H 3126550077) Lab Interpretation Abnormal (test code = 08849-3) [facility]K+GLU[facility]CA2+2022-06-04 02:57:07 Test Item Value Reference Range Interpretation Comments PH (test code = 2) 7.31 7.35-7.45 L PCO2 (test code = 42 See_Comment [Automate d message] 4539032732) The system [employer] generated this result transmit elizabeth reference range : 35 - 45 mmHg. The reference range was not used to interpret this result as normal/abnormal . PO2 (test code = 144 See_Comment H [Automated message] 1531699964) The system [employer] generated this result transmit elizabeth reference range : 80 - 100 mmHg. The reference range was not used to interpret this result as normal/abnormal . HCO3 (test code = 21 See_Comment L [Automate d message] 1654735693) The system [employer] generated this result transmit elizabeth reference range : 22 - 26 mEq/L. The reference range was not used to interpret this result as normal/abnormal . BE (test code = -4.8 See_Comment L [Automated message] 3877988181) The system [employer] generated this result transmit elizabeth reference range : -3.0 - 3.0 mEq/ L. The reference r mitra was not used to interpret this result as normal/abnormal . THB (test code = 9.6 g/dL 13.5-18.0 L 9119123865) %O2HB (test code = 98.4 % 94.0-99.0 3104201654) %COHB ART (test code = 0.1 % 0.0-1.5 4632511165) %METHB ART (test code = 0.1 % 0.4-1.5 L 7296118853) VOL%O2 ART (test code = 13.6 % 15.0-23.0 L QUES 8531842751) NA (test code = 133 mmol/L 135-145 L 9468357143) K+ (test code = 4.6 mmol/L 3.5-5.0 0530800337) AC CA IONZ (test code = 4.40 mg/dL 4.50-5.30 L 6253271442) GLUCOSE (test code = 148 mg/dL 70-110 H 7519638848) Lab Interpretation Abnormal (test code = 58110-7) [facility]+K+GLU[facility]CA2+2022-06-04 02:55:52 Test Item Value Reference Range Interpretation Comments PH (test code = 2) 7.31 7.35-7.45 L PCO2 (test code = 38 See_Comment [Automate d message] 6548273349) The system [employer] generated this result transmit elizabeth reference range : 35 - 45 mmHg. The reference range was not used to interpret this result as normal/abnormal . PO2 (test code = 180 See_Comment H [Automated message] 9263445543) The system [employer] generated this result transmit elizabeth reference range : 80 - 100 mmHg. The reference range was not used to interpret this result as normal/abnormal . HCO3 (test code = 19 See_Comment L [Automate d message] 2848935670) The system [employer] generated this result transmit elizabeth reference range : 22 - 26 mEq/L. The reference range was not used to interpret this result as normal/abnormal . BE (test code = -7.2 See_Comment L [Automated message] 7636655112) The system [employer] generated this result transmit elizabeth reference range : -3.0 - 3.0 mEq/ L. The reference r mitra was not used to interpret this result as normal/abnormal . THB (test code = 8.4 g/dL 13.5-18.0 L 9940081398) %O2HB (test code = 98.1 % 94.0-99.0 2500187827) %COHB ART (test code = 0.4 % 0.0-1.5 3480670517) %METHB ART (test code = 0.3 % 0.4-1.5 L 1902452873) VOL%O2 ART (test code = 12.0 % 15.0-23.0 L QUES 2874442804) NA (test code = 135 mmol/L 135-145 0332542706) K+ (test code = 4.1 mmol/L 3.5-5.0 7800453545) AC CA IONZ (test code = 4.90 mg/dL 4.50-5.30 9077576753) GLUCOSE (test code = 128 mg/dL 70-110 H 9593274995) Lab Interpretation Abnormal (test code = 88793-6) [facility]+K+GLU[facility]CA2+2022-06-04 02:55:52 Test Item Value Reference Range Interpretation Comments PH (test code = 2) 7.31 7.35-7.45 L PCO2 (test code = 38 See_Comment [Automate d message] 0397980509) The system [employer] generated this result transmit elizbaeth reference range : 35 - 45 mmHg. The reference range was not used to interpret this result as normal/abnormal . PO2 (test code = 180 See_Comment H [Automated message] 4349483997) The system [employer] generated this result transmit elizabeth reference range : 80 - 100 mmHg. The reference range was not used to interpret this result as normal/abnormal . HCO3 (test code = 19 See_Comment L [Automate d message] 3349069101) The system [employer] generated this result transmit elizabeth reference range : 22 - 26 mEq/L. The reference range was not used to interpret this result as normal/abnormal . BE (test code = -7.2 See_Comment L [Automated message] 7717997853) The system [employer] generated this result transmit elizabeth reference range : -3.0 - 3.0 mEq/ L. The reference r mitra was not used to interpret this result as normal/abnormal . THB (test code = 8.4 g/dL 13.5-18.0 L 7419732832) %O2HB (test code = 98.1 % 94.0-99.0 3037522450) %COHB ART (test code = 0.4 % 0.0-1.5 7924835915) %METHB ART (test code = 0.3 % 0.4-1.5 L 2244674605) VOL%O2 ART (test code = 12.0 % 15.0-23.0 L QUES 1336704743) NA (test code = 135 mmol/L 135-145 9683070082) K+ (test code = 4.1 mmol/L 3.5-5.0 2104903475) AC CA IONZ (test code = 4.90 mg/dL 4.50-5.30 4809144900) GLUCOSE (test code = 128 mg/dL 70-110 H 8259238243) Lab Interpretation Abnormal (test code = 60324-5) [facility] Yhkewcj4658-69-57 13:22:00 Test Item Value Reference Range Interpretation Comments ABO & RH (test code = 20) AB POSITIVE IAT (test code = 1185) Negative [facility] Tamxcld1013-87-17 13:22:00 Test Item Value Reference Range Interpretation Comments ABO & RH (test code = 20) AB POSITIVE IAT (test code = 1185) Negative [facility] WITH [id number] 11:35:29 Test Item Value Reference Range Interpretation Comments WBC (test code = 11.02 See_Comment H [Automated 9113-2) message] The sy stem which generated this result transmitted reference range : 4.20 - 10.70 10*3/?L. The reference range was not used to interpret this result as normal/abnormal . RBC (test code = 3.21 See_Comment L [Automated 559-8) message] The sy stem which generated this result transmitted reference range : 4.26 - 5.52 10*6/?L. The reference range was not used to interpret this result as normal/abnormal . HGB (test code = 9.2 g/dL 12.2-16.4 L 718-7) HCT (test code = 28.9 % 38.4-49.3 L 4544-3) MCV (test code = 90.0 fL 81.7-95.6 787-2) MCH (test code = 28.7 pg 26.1-32.7 785-6) MCHC (test code = 31.8 g/dL 31.2-35.0 786-4) RDW-SD (test code = 50.8 fL 38.5-51.6 85038-8) RDW-CV (test code = 15.9 % 12.1-15.4 H 788-0) PLT (test code = 265 See_Comment [Automated 777-3) message] The sy stem which generated this result transmitted reference range : 150 - 328 10*3/ ?L. The reference r mitra was not used to interpret this result as normal/abnormal . MPV (test code = 9.0 fL 9.8-13.0 L 67871-5) NRBC/100 WBC (test 0.5 See_Comment [Automat ed code = 9580377668) message] The system which generated this result transmitted reference range : 0.0 - 10.0 /100 WBCs. The refer ence range was not u sed to interpret th is result as normal/abnormal . NRBC x10^3 (test code 0.06 See_Comment [Auto mated = 6785514709) message] The s ystem which generated this result transmitted reference range : 10*3/?L. The reference range was not used to interpret this result as normal/abnormal . GRAN MAT (NEUT) % 67.4 % (test code = 770-8) IMM GRAN % (test code 5.90 % = 9056710499) LYMPH % (test code = 13.6 % 736-9) MONO % (test code = 8.5 % 5905-5) EOS % (test code = 4.1 % 713-8) BASO % (test code = 0.5 % 706-2) GRAN MAT x10^3(ANC) 7.42 10*3/uL 1.99-6.95 H (test code = 6535025968) IMM GRAN x10^3 (test 0.65 10*3/uL 0.00-0.06 H code = 1787642093) LYMPH x10^3 (test code 1.50 10*3/uL 1.09-3.23 = 731-0) MONO x10^3 (test code 0.94 10*3/uL 0.36-1.02 = 742-7) EOS x10^3 (test code = 0.45 10*3/uL 0.06-0.53 711-2) BASO x10^3 (test code 0.06 10*3/uL 0.01-0.09 = 704-7) Lab Interpretation Abnormal (test code = 97092-3) [facility] WITH [id number] 11:35:29 Test Item Value Reference Range Interpretation Comments WBC (test code = 11.02 See_Comment H [Automated 6690-2) message] The sy stem which generated this result transmitted reference range : 4.20 - 10.70 10*3/?L. The reference range was not used to interpret this result as normal/abnormal . RBC (test code = 3.21 See_Comment L [Automated 789-8) message] The sy stem which generated this result transmitted reference range : 4.26 - 5.52 10*6/?L. The reference range was not used to interpret this result as normal/abnormal . HGB (test code = 9.2 g/dL 12.2-16.4 L 718-7) HCT (test code = 28.9 % 38.4-49.3 L 4544-3) MCV (test code = 90.0 fL 81.7-95.6 787-2) MCH (test code = 28.7 pg 26.1-32.7 785-6) MCHC (test code = 31.8 g/dL 31.2-35.0 786-4) RDW-SD (test code = 50.8 fL 38.5-51.6 54413-7) RDW-CV (test code = 15.9 % 12.1-15.4 H 788-0) PLT (test code = 265 See_Comment [Automated 777-3) message] The sy stem which generated this result transmitted reference range : 150 - 328 10*3/ ?L. The reference r mitra was not used to interpret this result as normal/abnormal . MPV (test code = 9.0 fL 9.8-13.0 L 61903-9) NRBC/100 WBC (test 0.5 See_Comment [Automat ed code = 1160688218) message] The system which generated this result transmitted reference range : 0.0 - 10.0 /100 WBCs. The refer ence range was not u sed to interpret th is result as normal/abnormal . NRBC x10^3 (test code 0.06 See_Comment [Auto mated = 5730585372) message] The s ystem which generated this result transmitted reference range : 10*3/?L. The reference range was not used to interpret this result as normal/abnormal . GRAN MAT (NEUT) % 67.4 % (test code = 770-8) IMM GRAN % (test code 5.90 % = 1115827113) LYMPH % (test code = 13.6 % 736-9) MONO % (test code = 8.5 % 5905-5) EOS % (test code = 4.1 % 713-8) BASO % (test code = 0.5 % 706-2) GRAN MAT x10^3(ANC) 7.42 10*3/uL 1.99-6.95 H (test code = 7897071285) IMM GRAN x10^3 (test 0.65 10*3/uL 0.00-0.06 H code = 6843536148) LYMPH x10^3 (test code 1.50 10*3/uL 1.09-3.23 = 731-0) MONO x10^3 (test code 0.94 10*3/uL 0.36-1.02 = 742-7) EOS x10^3 (test code = 0.45 10*3/uL 0.06-0.53 711-2) BASO x10^3 (test code 0.06 10*3/uL 0.01-0.09 = 704-7) Lab Interpretation Abnormal (test code = 73413-0) [facility] Test Item Value Reference Range Interpretation Comments MAGNESIUM (test code = 8371176313) 2.4 mg/dL 1.7-2.4 Lab Interpretation (test code = Normal 02029-1) [facility] 11:30:46 Test Item Value Reference Range Interpretation Comments PHOSPHORUS (test code = 7988567489) 4.8 mg/dL 2.5-5.0 Lab Interpretation (test code = Normal 40426-8) [facility] (NA, K, CL, CO2, GLUCOSE, BUN, CREATININE, CA)2022-06-03 11:30:46 Test Item Value Reference Range Interpretation Comments NA (test code = 136 mmol/L 135-145 8326019255) K (test code = 4.2 mmol/L 3.5-5.0 9348108552) CL (test code = 104 mmol/L 98-108 7213708859) CO2 TOTAL (test code 26 mmol/L 23-31 = 7514573685) AGAP (test code = 6 2-16 0290461751) BUN (test code = 18 mg/dL 7-23 0371620830) GLUCOSE (test code = 103 mg/dL 70-110 6565545223) CREATININE (test code 1.08 mg/dL 0.60-1.25 = 4552999358) CALCIUM (test code = 8.7 mg/dL 8.6-10.6 9773511632) eGFR (test code = 70.0 mL/min/1.73m2 0331619723) DEWAYNE (test code = DEWAYNE) Association of Glomerular Filtration Rate (GFR) and Staging of Kidney Disease* + + +- +| GFR (mL/min/1.73 m2) ?| With Kidney Damage ?| ?Without Kidney Damage+ ------+ ----+ ------+| ?>90 ?| ?Stage one ?| ? Normal ?+ -+ + -+| ?60-89 ?| ?Stage two ?| ? Decreased GFR ? + + +- +| ?30-59 ?| ?Stage three ?| ? Stage three ? + + +- +| ?15-29 ?| ?Stage four ? | ? Stage four ?+ -+ + -+| ?<15 (or dialysis) ? ?| ?Stage five ? | ? Stage five ?+ -+ + -+ *Each stage assumes the associated GFR level has been in effect for at least three months. ?Stages 1 to 5, with or without kidney disease, indicate chronic kidney disease. Notes: Determination of stages one and two (with eGFR >59mL/min/1.73 m2) requires estimation of kidney damage for at least three months as defined by structural or functional abnormalities of the kidney, manifested by either:Pathological abnormalities or Markers of kidney damage (including abnormalities in the composition of the blood or urine or abnormalities in imaging tests). [facility] 11:30:46 Test Item Value Reference Range Interpretation Comments MAGNESIUM (test code = 5242225238) 2.4 mg/dL 1.7-2.4 Lab Interpretation (test code = Normal 45192-8) [facility] 11:30:46 Test Item Value Reference Range Interpretation Comments PHOSPHORUS (test code = 9250246067) 4.8 mg/dL 2.5-5.0 Lab Interpretation (test code = Normal 41045-4) [facility] (NA, K, CL, CO2, GLUCOSE, BUN, CREATININE, CA)2022-06-03 11:30:46 Test Item Value Reference Range Interpretation Comments NA (test code = 136 mmol/L 135-145 5187022112) K (test code = 4.2 mmol/L 3.5-5.0 1451450903) CL (test code = 104 mmol/L 98-108 8908707223) CO2 TOTAL (test code 26 mmol/L 23-31 = 7043351469) AGAP (test code = 6 2-16 5114498894) BUN (test code = 18 mg/dL 7-23 8971070416) GLUCOSE (test code = 103 mg/dL 70-110 2925328406) CREATININE (test code 1.08 mg/dL 0.60-1.25 = 6625626015) CALCIUM (test code = 8.7 mg/dL 8.6-10.6 6360585587) eGFR (test code = 70.0 mL/min/1.73m2 9383967836) DEWAYNE (test code = DEWAYNE) Association of Glomerular Filtration Rate (GFR) and Staging of Kidney Disease* + + +- +| GFR (mL/min/1.73 m2) ?| With Kidney Damage ?| ?Without Kidney Damage+ ------+ ----+ ------+| ?>90 ?| ?Stage one ?| ? Normal ?+ -+ + -+| ?60-89 ?| ?Stage two ?| ? Decreased GFR ? + + +- +| ?30-59 ?| ?Stage three ?| ? Stage three ? + + +- +| ?15-29 ?| ?Stage four ? | ? Stage four ?+ -+ + -+| ?<15 (or dialysis) ? ?| ?Stage five ? | ? Stage five ?+ -+ + -+ *Each stage assumes the associated GFR level has been in effect for at least three months. ?Stages 1 to 5, with or without kidney disease, indicate chronic kidney disease. Notes: Determination of stages one and two (with eGFR >59mL/min/1.73 m2) requires estimation of kidney damage for at least three months as defined by structural or functional abnormalities of the kidney, manifested by either:Pathological abnormalities or Markers of kidney damage (including abnormalities in the composition of the blood or urine or abnormalities in imaging tests). [facility]2022-06-03 11:15:05 Test Item Value Reference Range Interpretation Comments APTT Patient (test code 52 See_Comment H [Au tomated message] = 3173-2) The system [employer] generated this result transmitted ref erence range: 26 - 36 Seconds. The reference range was not used to int erpret this result as normal/abnormal . Lab Interpretation (test Abnormal code = 23494-5) [facility] D[facility]2022-06-03 11:15:05 Test Item Value Reference Range Interpretation Comments APTT Patient (test code 52 See_Comment H [Au tomated message] = 3173-2) The system [employer] generated this result transmitted ref erence range: 26 - 36 Seconds. The reference range was not used to int erpret this result as normal/abnormal . Lab Interpretation (test Abnormal code = 38948-8) [facility] METABOLIC PANEL (NA, K, CL, CO2, GLUCOSE, BUN, CREATININE, CA)2022-06-02 13:56:04 Test Item Value Reference Range Interpretation Comments NA (test code = 137 mmol/L 135-145 6164211165) K (test code = 4.4 mmol/L 3.5-5.0 0126731641) CL (test code = 105 mmol/L 98-108 3774583838) CO2 TOTAL (test code 27 mmol/L 23-31 = 1048688413) AGAP (test code = 5 2-16 1702737765) BUN (test code = 19 mg/dL 7-23 3656802679) GLUCOSE (test code = 92 mg/dL 70-110 6362455538) CREATININE (test code 0.96 mg/dL 0.60-1.25 = 0245965531) CALCIUM (test code = 8.7 mg/dL 8.6-10.6 9170528622) eGFR (test code = 80.2 mL/min/1.73m2 5057484602) DEWAYNE (test code = DEWAYNE) Association of Glomerular Filtration Rate (GFR) and Staging of Kidney Disease* + + +- +| GFR (mL/min/1.73 m2) ?| With Kidney Damage ?| ?Without Kidney Damage+ ------+ ----+ ------+| ?>90 ?| ?Stage one ?| ? Normal ?+ -+ + -+| ?60-89 ?| ?Stage two ?| ? Decreased GFR ? + + +- +| ?30-59 ?| ?Stage three ?| ? Stage three ? + + +- +| ?15-29 ?| ?Stage four ? | ? Stage four ?+ -+ + -+| ?<15 (or dialysis) ? ?| ?Stage five ? | ? Stage five ?+ -+ + -+ *Each stage assumes the associated GFR level has been in effect for at least three months. ?Stages 1 to 5, with or without kidney disease, indicate chronic kidney disease. Notes: Determination of stages one and two (with eGFR >59mL/min/1.73 m2) requires estimation of kidney damage for at least three months as defined by structural or functional abnormalities of the kidney, manifested by either:Pathological abnormalities or Markers of kidney damage (including abnormalities in the composition of the blood or urine or abnormalities in imaging tests). [facility] (NA, K, CL, CO2, GLUCOSE, BUN, CREATININE, CA)2022-06-02 13:56:04 Test Item Value Reference Range Interpretation Comments NA (test code = 137 mmol/L 135-145 7421091091) K (test code = 4.4 mmol/L 3.5-5.0 2025033830) CL (test code = 105 mmol/L 98-108 4350238024) CO2 TOTAL (test code 27 mmol/L 23-31 = 5099517564) AGAP (test code = 5 2-16 8216166223) BUN (test code = 19 mg/dL 7-23 5303348679) GLUCOSE (test code = 92 mg/dL 70-110 1272117263) CREATININE (test code 0.96 mg/dL 0.60-1.25 = 4471008337) CALCIUM (test code = 8.7 mg/dL 8.6-10.6 7222356978) eGFR (test code = 80.2 mL/min/1.73m2 1938566106) DEWAYNE (test code = DEWAYNE) Association of Glomerular Filtration Rate (GFR) and Staging of Kidney Disease* + + +- +| GFR (mL/min/1.73 m2) ?| With Kidney Damage ?| ?Without Kidney Damage+ ------+ ----+ ------+| ?>90 ?| ?Stage one ?| ? Normal ?+ -+ + -+| ?60-89 ?| ?Stage two ?| ? Decreased GFR ? + + +- +| ?30-59 ?| ?Stage three ?| ? Stage three ? + + +- +| ?15-29 ?| ?Stage four ? | ? Stage four ?+ -+ + -+| ?<15 (or dialysis) ? ?| ?Stage five ? | ? Stage five ?+ -+ + -+ *Each stage assumes the associated GFR level has been in effect for at least three months. ?Stages 1 to 5, with or without kidney disease, indicate chronic kidney disease. Notes: Determination of stages one and two (with eGFR >59mL/min/1.73 m2) requires estimation of kidney damage for at least three months as defined by structural or functional abnormalities of the kidney, manifested by either:Pathological abnormalities or Markers of kidney damage (including abnormalities in the composition of the blood or urine or abnormalities in imaging tests). [facility] WITH [id number] 11:30:12 Test Item Value Reference Range Interpretation Comments WBC (test code = 8.75 See_Comment [Automated 6690-2) message] The sy stem which generated this result transmitted reference range : 4.20 - 10.70 10*3/?L. The reference range was not used to interpret this result as normal/abnormal . RBC (test code = 3.25 See_Comment L [Automated 789-8) message] The sy stem which generated this result transmitted reference range : 4.26 - 5.52 10*6/?L. The reference range was not used to interpret this result as normal/abnormal . HGB (test code = 9.5 g/dL 12.2-16.4 L 718-7) HCT (test code = 28.9 % 38.4-49.3 L 4544-3) MCV (test code = 88.9 fL 81.7-95.6 787-2) MCH (test code = 29.2 pg 26.1-32.7 785-6) MCHC (test code = 32.9 g/dL 31.2-35.0 786-4) RDW-SD (test code = 50.1 fL 38.5-51.6 96939-2) RDW-CV (test code = 15.8 % 12.1-15.4 H 788-0) PLT (test code = 239 See_Comment [Automated 777-3) message] The sy stem which generated this result transmitted reference range : 150 - 328 10*3/ ?L. The reference r mitra was not used to interpret this result as normal/abnormal . MPV (test code = 9.1 fL 9.8-13.0 L 74648-7) NRBC/100 WBC (test 0.8 See_Comment [Automat ed code = 0568905295) message] The system which generated this result transmitted reference range : 0.0 - 10.0 /100 WBCs. The refer ence range was not u sed to interpret th is result as normal/abnormal . NRBC x10^3 (test code 0.07 See_Comment [Auto mated = 9116244944) message] The s ystem which generated this result transmitted reference range : 10*3/?L. The reference range was not used to interpret this result as normal/abnormal . GRAN MAT (NEUT) % 56.4 % (test code = 770-8) IMM GRAN % (test code 6.70 % = 1852445655) LYMPH % (test code = 23.9 % 736-9) MONO % (test code = 7.3 % 5905-5) EOS % (test code = 4.9 % 713-8) BASO % (test code = 0.8 % 706-2) GRAN MAT x10^3(ANC) 4.93 10*3/uL 1.99-6.95 (test code = 3899453609) IMM GRAN x10^3 (test 0.59 10*3/uL 0.00-0.06 H code = 8397015501) LYMPH x10^3 (test code 2.09 10*3/uL 1.09-3.23 = 731-0) MONO x10^3 (test code 0.64 10*3/uL 0.36-1.02 = 742-7) EOS x10^3 (test code = 0.43 10*3/uL 0.06-0.53 711-2) BASO x10^3 (test code 0.07 10*3/uL 0.01-0.09 = 704-7) Lab Interpretation Abnormal (test code = 12480-9) [facility] WITH [id number] 11:30:12 Test Item Value Reference Range Interpretation Comments WBC (test code = 8.75 See_Comment [Automated 1490-2) message] The sy stem which generated this result transmitted reference range : 4.20 - 10.70 10*3/?L. The reference range was not used to interpret this result as normal/abnormal . RBC (test code = 3.25 See_Comment L [Automated 021-8) message] The sy stem which generated this result transmitted reference range : 4.26 - 5.52 10*6/?L. The reference range was not used to interpret this result as normal/abnormal . HGB (test code = 9.5 g/dL 12.2-16.4 L 718-7) HCT (test code = 28.9 % 38.4-49.3 L 4544-3) MCV (test code = 88.9 fL 81.7-95.6 787-2) MCH (test code = 29.2 pg 26.1-32.7 785-6) MCHC (test code = 32.9 g/dL 31.2-35.0 786-4) RDW-SD (test code = 50.1 fL 38.5-51.6 87850-4) RDW-CV (test code = 15.8 % 12.1-15.4 H 788-0) PLT (test code = 239 See_Comment [Automated 777-3) message] The sy stem which generated this result transmitted reference range : 150 - 328 10*3/ ?L. The reference r mitra was not used to interpret this result as normal/abnormal . MPV (test code = 9.1 fL 9.8-13.0 L 21078-7) NRBC/100 WBC (test 0.8 See_Comment [Automat ed code = 7588534614) message] The system which generated this result transmitted reference range : 0.0 - 10.0 /100 WBCs. The refer ence range was not u sed to interpret th is result as normal/abnormal . NRBC x10^3 (test code 0.07 See_Comment [Auto mated = 4037781517) message] The s ystem which generated this result transmitted reference range : 10*3/?L. The reference range was not used to interpret this result as normal/abnormal . GRAN MAT (NEUT) % 56.4 % (test code = 770-8) IMM GRAN % (test code 6.70 % = 1022725442) LYMPH % (test code = 23.9 % 736-9) MONO % (test code = 7.3 % 5905-5) EOS % (test code = 4.9 % 713-8) BASO % (test code = 0.8 % 706-2) GRAN MAT x10^3(ANC) 4.93 10*3/uL 1.99-6.95 (test code = 0501780412) IMM GRAN x10^3 (test 0.59 10*3/uL 0.00-0.06 H code = 9819099394) LYMPH x10^3 (test code 2.09 10*3/uL 1.09-3.23 = 731-0) MONO x10^3 (test code 0.64 10*3/uL 0.36-1.02 = 742-7) EOS x10^3 (test code = 0.43 10*3/uL 0.06-0.53 711-2) BASO x10^3 (test code 0.07 10*3/uL 0.01-0.09 = 704-7) Lab Interpretation Abnormal (test code = 48506-3) [facility] Test Item Value Reference Range Interpretation Comments MAGNESIUM (test code = 5227306924) 2.3 mg/dL 1.7-2.4 Lab Interpretation (test code = Normal 27450-8) [facility] 11:16:48 Test Item Value Reference Range Interpretation Comments PHOSPHORUS (test code = 2466768420) 4.8 mg/dL 2.5-5.0 Lab Interpretation (test code = Normal 26709-9) [facility] 11:16:48 Test Item Value Reference Range Interpretation Comments MAGNESIUM (test code = 9094350584) 2.3 mg/dL 1.7-2.4 Lab Interpretation (test code = Normal 71488-4) [facility] 11:16:48 Test Item Value Reference Range Interpretation Comments PHOSPHORUS (test code = 0336418797) 4.8 mg/dL 2.5-5.0 Lab Interpretation (test code = Normal 45851-1) [facility] WITH [id number] 11:58:20 Test Item Value Reference Range Interpretation Comments WBC (test code = 9.20 See_Comment [Automated 1481-2) message] The sy stem which generated this result transmitted reference range : 4.20 - 10.70 10*3/?L. The reference range was not used to interpret this result as normal/abnormal . RBC (test code = 3.18 See_Comment L [Automated 446-8) message] The sy stem which generated this result transmitted reference range : 4.26 - 5.52 10*6/?L. The reference range was not used to interpret this result as normal/abnormal . HGB (test code = 9.2 g/dL 12.2-16.4 L 718-7) HCT (test code = 27.8 % 38.4-49.3 L 4544-3) MCV (test code = 87.4 fL 81.7-95.6 787-2) MCH (test code = 28.9 pg 26.1-32.7 785-6) MCHC (test code = 33.1 g/dL 31.2-35.0 786-4) RDW-SD (test code = 48.3 fL 38.5-51.6 48810-1) RDW-CV (test code = 15.2 % 12.1-15.4 788-0) PLT (test code = 181 See_Comment [Automated 777-3) message] The sy stem which generated this result transmitted reference range : 150 - 328 10*3/ ?L. The reference r mitra was not used to interpret this result as normal/abnormal . MPV (test code = 9.4 fL 9.8-13.0 L 51849-5) NRBC/100 WBC (test 0.3 See_Comment [Automat ed code = 1846882366) message] The system which generated this result transmitted reference range : 0.0 - 10.0 /100 WBCs. The refer ence range was not u sed to interpret th is result as normal/abnormal . NRBC x10^3 (test code 0.03 See_Comment [Auto mated = 9193726449) message] The s ystem which generated this result transmitted reference range : 10*3/?L. The reference range was not used to interpret this result as normal/abnormal . GRAN MAT (NEUT) % 59.7 % (test code = 770-8) IMM GRAN % (test code 5.80 % = 1055694495) LYMPH % (test code = 21.3 % 736-9) MONO % (test code = 8.7 % 5905-5) EOS % (test code = 4.1 % 713-8) BASO % (test code = 0.4 % 706-2) GRAN MAT x10^3(ANC) 5.49 10*3/uL 1.99-6.95 (test code = 0659915064) IMM GRAN x10^3 (test 0.53 10*3/uL 0.00-0.06 H code = 3323628942) LYMPH x10^3 (test code 1.96 10*3/uL 1.09-3.23 = 731-0) MONO x10^3 (test code 0.80 10*3/uL 0.36-1.02 = 742-7) EOS x10^3 (test code = 0.38 10*3/uL 0.06-0.53 711-2) BASO x10^3 (test code 0.04 10*3/uL 0.01-0.09 = 704-7) Lab Interpretation Abnormal (test code = 58485-2) [facility] WITH [id number] 11:58:20 Test Item Value Reference Range Interpretation Comments WBC (test code = 9.20 See_Comment [Automated 6690-2) message] The sy stem which generated this result transmitted reference range : 4.20 - 10.70 10*3/?L. The reference range was not used to interpret this result as normal/abnormal . RBC (test code = 3.18 See_Comment L [Automated 689-8) message] The sy stem which generated this result transmitted reference range : 4.26 - 5.52 10*6/?L. The reference range was not used to interpret this result as normal/abnormal . HGB (test code = 9.2 g/dL 12.2-16.4 L 718-7) HCT (test code = 27.8 % 38.4-49.3 L 4544-3) MCV (test code = 87.4 fL 81.7-95.6 787-2) MCH (test code = 28.9 pg 26.1-32.7 785-6) MCHC (test code = 33.1 g/dL 31.2-35.0 786-4) RDW-SD (test code = 48.3 fL 38.5-51.6 86578-2) RDW-CV (test code = 15.2 % 12.1-15.4 788-0) PLT (test code = 181 See_Comment [Automated 737-3) message] The sy stem which generated this result transmitted reference range : 150 - 328 10*3/ ?L. The reference r mitra was not used to interpret this result as normal/abnormal . MPV (test code = 9.4 fL 9.8-13.0 L 99758-5) NRBC/100 WBC (test 0.3 See_Comment [Automat ed code = 5878885700) message] The system which generated this result transmitted reference range : 0.0 - 10.0 /100 WBCs. The refer ence range was not u sed to interpret th is result as normal/abnormal . NRBC x10^3 (test code 0.03 See_Comment [Auto mated = 0284454972) message] The s ystem which generated this result transmitted reference range : 10*3/?L. The reference range was not used to interpret this result as normal/abnormal . GRAN MAT (NEUT) % 59.7 % (test code = 770-8) IMM GRAN % (test code 5.80 % = 1028575590) LYMPH % (test code = 21.3 % 736-9) MONO % (test code = 8.7 % 5905-5) EOS % (test code = 4.1 % 713-8) BASO % (test code = 0.4 % 706-2) GRAN MAT x10^3(ANC) 5.49 10*3/uL 1.99-6.95 (test code = 6475120842) IMM GRAN x10^3 (test 0.53 10*3/uL 0.00-0.06 H code = 4507758768) LYMPH x10^3 (test code 1.96 10*3/uL 1.09-3.23 = 731-0) MONO x10^3 (test code 0.80 10*3/uL 0.36-1.02 = 742-7) EOS x10^3 (test code = 0.38 10*3/uL 0.06-0.53 711-2) BASO x10^3 (test code 0.04 10*3/uL 0.01-0.09 = 704-7) Lab Interpretation Abnormal (test code = 89467-1) [facility] Test Item Value Reference Range Interpretation Comments MAGNESIUM (test code = 8640322476) 2.3 mg/dL 1.7-2.4 Lab Interpretation (test code = Normal 38699-8) [facility] Test Item Value Reference Range Interpretation Comments PHOSPHORUS (test code = 0244971790) 3.4 mg/dL 2.5-5.0 Lab Interpretation (test code = Normal 14355-4) [facility] (NA, K, CL, CO2, GLUCOSE, BUN, CREATININE, CA)2022-06-01 11:41:55 Test Item Value Reference Range Interpretation Comments NA (test code = 137 mmol/L 135-145 6900103822) K (test code = 4.1 mmol/L 3.5-5.0 7915320646) CL (test code = 105 mmol/L 98-108 4425755174) CO2 TOTAL (test code = 27 mmol/L 23-31 5655923380) AGAP (test code = 5 2-16 0226048245) BUN (test code = 17 mg/dL 7-23 3807229394) GLUCOSE (test code = 135 mg/dL 70-110 H 1449967379) CREATININE (test code = 0.84 mg/dL 0.60-1.25 3633152864) CALCIUM (test code = 8.4 mg/dL 8.6-10.6 L 2458377828) eGFR (test code = 93.5 mL/min/1.73m2 8285593139) DEWAYNE (test code = DEWAYNE) Association of Glomerular Filtration Rate (GFR) and Staging of Kidney Disease* + --+ --+ ------+| GFR (mL/min/1.73 m2) ?| With Kidney Damage ?| ?Without Kidney Damage+ --------+ --------+ +| ?>90 ?| ?Stage one ?| ? Normal ?+ ---+ ---+ -------+| ?60-89 ?| ?Stage two ?| ? Decreased GFR ? + --+ --+ ------+| ?30-59 ?| ?Stage three ?| ? Stage three ? + --+ --+ ------+| ?15-29 ?| ?Stage four ? | ? Stage four ?+ ---+ ---+ -------+| ?<15 (or dialysis) ? ?| ?Stage five ? | ? Stage five ?+ ---+ ---+ -------+ *Each stage assumes the associated GFR level has been in effect for at least three months. ?Stages 1 to 5, with or without kidney disease, indicate chronic kidney disease. Notes: Determination of stages one and two (with eGFR >59mL/min/1.73 m2) requires estimation of kidney damage for at least three months as defined by structural or functional abnormalities of the kidney, manifested by either:Pathological abnormalities or Markers of kidney damage (including abnormalities in the composition of the blood or urine or abnormalities in imaging tests). Lab Interpretation Abnormal (test code = 48191-7) [facility] Test Item Value Reference Range Interpretation Comments MAGNESIUM (test code = 8699507829) 2.3 mg/dL 1.7-2.4 Lab Interpretation (test code = Normal 72421-6) [facility] 11:41:55 Test Item Value Reference Range Interpretation Comments PHOSPHORUS (test code = 3488147005) 3.4 mg/dL 2.5-5.0 Lab Interpretation (test code = Normal 02216-8) [facility] (NA, K, CL, CO2, GLUCOSE, BUN, CREATININE, CA)2022-06-01 11:41:55 Test Item Value Reference Range Interpretation Comments NA (test code = 137 mmol/L 135-145 3954892672) K (test code = 4.1 mmol/L 3.5-5.0 6674942588) CL (test code = 105 mmol/L 98-108 9812745706) CO2 TOTAL (test code = 27 mmol/L 23-31 8445652465) AGAP (test code = 5 2-16 3903943067) BUN (test code = 17 mg/dL 7-23 2469881772) GLUCOSE (test code = 135 mg/dL 70-110 H 8106850704) CREATININE (test code = 0.84 mg/dL 0.60-1.25 2500754310) CALCIUM (test code = 8.4 mg/dL 8.6-10.6 L 1569201894) eGFR (test code = 93.5 mL/min/1.73m2 5883860291) DEWAYNE (test code = DEWAYNE) Association of Glomerular Filtration Rate (GFR) and Staging of Kidney Disease* + --+ --+ ------+| GFR (mL/min/1.73 m2) ?| With Kidney Damage ?| ?Without Kidney Damage+ --------+ --------+ +| ?>90 ?| ?Stage one ?| ? Normal ?+ ---+ ---+ -------+| ?60-89 ?| ?Stage two ?| ? Decreased GFR ? + --+ --+ ------+| ?30-59 ?| ?Stage three ?| ? Stage three ? + --+ --+ ------+| ?15-29 ?| ?Stage four ? | ? Stage four ?+ ---+ ---+ -------+| ?<15 (or dialysis) ? ?| ?Stage five ? | ? Stage five ?+ ---+ ---+ -------+ *Each stage assumes the associated GFR level has been in effect for at least three months. ?Stages 1 to 5, with or without kidney disease, indicate chronic kidney disease. Notes: Determination of stages one and two (with eGFR >59mL/min/1.73 m2) requires estimation of kidney damage for at least three months as defined by structural or functional abnormalities of the kidney, manifested by either:Pathological abnormalities or Markers of kidney damage (including abnormalities in the composition of the blood or urine or abnormalities in imaging tests). Lab Interpretation Abnormal (test code = 09234-9) [facility] WITH [id number] 12:02:32 Test Item Value Reference Range Interpretation Comments WBC (test code = 9.82 See_Comment [Automated 4818-2) message] The sy stem which generated this result transmitted reference range : 4.20 - 10.70 10*3/?L. The reference range was not used to interpret this result as normal/abnormal . RBC (test code = 3.82 See_Comment L [Automated 141-8) message] The sy stem which generated this result transmitted reference range : 4.26 - 5.52 10*6/?L. The reference range was not used to interpret this result as normal/abnormal . HGB (test code = 10.9 g/dL 12.2-16.4 L 718-7) HCT (test code = 33.1 % 38.4-49.3 L 4544-3) MCV (test code = 86.6 fL 81.7-95.6 787-2) MCH (test code = 28.5 pg 26.1-32.7 785-6) MCHC (test code = 32.9 g/dL 31.2-35.0 786-4) RDW-SD (test code = 46.6 fL 38.5-51.6 73100-2) RDW-CV (test code = 14.9 % 12.1-15.4 788-0) PLT (test code = 154 See_Comment [Automated 777-3) message] The sy stem which generated this result transmitted reference range : 150 - 328 10*3/ ?L. The reference r mitra was not used to interpret this result as normal/abnormal . MPV (test code = 9.5 fL 9.8-13.0 L 11909-4) NRBC/100 WBC (test 0.2 See_Comment [Automat ed code = 5086159169) message] The system which generated this result transmitted reference range : 0.0 - 10.0 /100 WBCs. The refer ence range was not u sed to interpret th is result as normal/abnormal . NRBC x10^3 (test code 0.02 See_Comment [Auto mated = 7536527647) message] The s ystem which generated this result transmitted reference range : 10*3/?L. The reference range was not used to interpret this result as normal/abnormal . GRAN MAT (NEUT) % 80.7 % (test code = 770-8) IMM GRAN % (test code 4.50 % = 1291201851) LYMPH % (test code = 6.5 % 736-9) MONO % (test code = 7.3 % 5905-5) EOS % (test code = 0.6 % 713-8) BASO % (test code = 0.4 % 706-2) GRAN MAT x10^3(ANC) 7.92 10*3/uL 1.99-6.95 H (test code = 4837544514) IMM GRAN x10^3 (test 0.44 10*3/uL 0.00-0.06 H code = 0002742811) LYMPH x10^3 (test code 0.64 10*3/uL 1.09-3.23 L = 731-0) MONO x10^3 (test code 0.72 10*3/uL 0.36-1.02 = 742-7) EOS x10^3 (test code = 0.06 10*3/uL 0.06-0.53 711-2) BASO x10^3 (test code 0.04 10*3/uL 0.01-0.09 = 704-7) MEAGHAN CELLS (test code 2+ See_Comment A [Auto mated = 3172-9) message] The sy stem which generated this result transmitted reference range : (none). The reference range was not used to interpret this result as normal/abnormal . REACT LYMPHS (test Rare code = 0689769656) Lab Interpretation Abnormal (test code = 78454-2) [facility] WITH [id number] 12:02:32 Test Item Value Reference Range Interpretation Comments WBC (test code = 9.82 See_Comment [Automated 0241-2) message] The sy stem which generated this result transmitted reference range : 4.20 - 10.70 10*3/?L. The reference range was not used to interpret this result as normal/abnormal . RBC (test code = 3.82 See_Comment L [Automated 205-8) message] The sy stem which generated this result transmitted reference range : 4.26 - 5.52 10*6/?L. The reference range was not used to interpret this result as normal/abnormal . HGB (test code = 10.9 g/dL 12.2-16.4 L 718-7) HCT (test code = 33.1 % 38.4-49.3 L 4544-3) MCV (test code = 86.6 fL 81.7-95.6 787-2) MCH (test code = 28.5 pg 26.1-32.7 785-6) MCHC (test code = 32.9 g/dL 31.2-35.0 786-4) RDW-SD (test code = 46.6 fL 38.5-51.6 77778-0) RDW-CV (test code = 14.9 % 12.1-15.4 788-0) PLT (test code = 154 See_Comment [Automated 777-3) message] The sy stem which generated this result transmitted reference range : 150 - 328 10*3/ ?L. The reference r mitra was not used to interpret this result as normal/abnormal . MPV (test code = 9.5 fL 9.8-13.0 L 57125-7) NRBC/100 WBC (test 0.2 See_Comment [Automat ed code = 4588058271) message] The system which generated this result transmitted reference range : 0.0 - 10.0 /100 WBCs. The refer ence range was not u sed to interpret th is result as normal/abnormal . NRBC x10^3 (test code 0.02 See_Comment [Auto mated = 0985751451) message] The s ystem which generated this result transmitted reference range : 10*3/?L. The reference range was not used to interpret this result as normal/abnormal . GRAN MAT (NEUT) % 80.7 % (test code = 770-8) IMM GRAN % (test code 4.50 % = 1056158802) LYMPH % (test code = 6.5 % 736-9) MONO % (test code = 7.3 % 5905-5) EOS % (test code = 0.6 % 713-8) BASO % (test code = 0.4 % 706-2) GRAN MAT x10^3(ANC) 7.92 10*3/uL 1.99-6.95 H (test code = 2003815769) IMM GRAN x10^3 (test 0.44 10*3/uL 0.00-0.06 H code = 6906959147) LYMPH x10^3 (test code 0.64 10*3/uL 1.09-3.23 L = 731-0) MONO x10^3 (test code 0.72 10*3/uL 0.36-1.02 = 742-7) EOS x10^3 (test code = 0.06 10*3/uL 0.06-0.53 711-2) BASO x10^3 (test code 0.04 10*3/uL 0.01-0.09 = 704-7) MEAGHAN CELLS (test code 2+ See_Comment A [Auto mated = 3190-9) message] The sy stem which generated this result transmitted reference range : (none). The reference range was not used to interpret this result as normal/abnormal . REACT LYMPHS (test Rare code = 6295896026) Lab Interpretation Abnormal (test code = 39441-2) [facility] WITH [id number] 12:02:32 Test Item Value Reference Range Interpretation Comments WBC (test code = 9.82 See_Comment [Automated 6690-2) message] The sy stem which generated this result transmitted reference range : 4.20 - 10.70 10*3/?L. The reference range was not used to interpret this result as normal/abnormal . RBC (test code = 3.82 See_Comment L [Automated 789-8) message] The sy stem which generated this result transmitted reference range : 4.26 - 5.52 10*6/?L. The reference range was not used to interpret this result as normal/abnormal . HGB (test code = 10.9 g/dL 12.2-16.4 L 718-7) HCT (test code = 33.1 % 38.4-49.3 L 4544-3) MCV (test code = 86.6 fL 81.7-95.6 787-2) MCH (test code = 28.5 pg 26.1-32.7 785-6) MCHC (test code = 32.9 g/dL 31.2-35.0 786-4) RDW-SD (test code = 46.6 fL 38.5-51.6 11073-2) RDW-CV (test code = 14.9 % 12.1-15.4 788-0) PLT (test code = 154 See_Comment [Automated 777-3) message] The sy stem which generated this result transmitted reference range : 150 - 328 10*3/ ?L. The reference r mitra was not used to interpret this result as normal/abnormal . MPV (test code = 9.5 fL 9.8-13.0 L 40116-7) NRBC/100 WBC (test 0.2 See_Comment [Automat ed code = 0629553258) message] The system which generated this result transmitted reference range : 0.0 - 10.0 /100 WBCs. The refer ence range was not u sed to interpret th is result as normal/abnormal . NRBC x10^3 (test code 0.02 See_Comment [Auto mated = 5257555408) message] The s ystem which generated this result transmitted reference range : 10*3/?L. The reference range was not used to interpret this result as normal/abnormal . GRAN MAT (NEUT) % 80.7 % (test code = 770-8) IMM GRAN % (test code 4.50 % = 0466960873) LYMPH % (test code = 6.5 % 736-9) MONO % (test code = 7.3 % 5905-5) EOS % (test code = 0.6 % 713-8) BASO % (test code = 0.4 % 706-2) GRAN MAT x10^3(ANC) 7.92 10*3/uL 1.99-6.95 H (test code = 5790347604) IMM GRAN x10^3 (test 0.44 10*3/uL 0.00-0.06 H code = 3051907587) LYMPH x10^3 (test code 0.64 10*3/uL 1.09-3.23 L = 731-0) MONO x10^3 (test code 0.72 10*3/uL 0.36-1.02 = 742-7) EOS x10^3 (test code = 0.06 10*3/uL 0.06-0.53 711-2) BASO x10^3 (test code 0.04 10*3/uL 0.01-0.09 = 704-7) MEAGHAN CELLS (test code 2+ See_Comment A [Auto mated = 8975-2) message] The sy stem which generated this result transmitted reference range : (none). The reference range was not used to interpret this result as normal/abnormal . REACT LYMPHS (test Rare code = 9085434129) Lab Interpretation Abnormal (test code = 59301-5) [facility] Test Item Value Reference Range Interpretation Comments MAGNESIUM (test code = 2935715223) 2.1 mg/dL 1.7-2.4 Lab Interpretation (test code = Normal 99850-0) [facility] 11[facility]43:29 Test Item Value Reference Range Interpretation Comments PHOSPHORUS (test code = 4511099606) 3.7 mg/dL 2.5-5.0 Lab Interpretation (test code = Normal 74901-0) [facility] (NA, K, CL, CO2, GLUCOSE, BUN, CREATININE, CA)2022-05-31 11:43:29 Test Item Value Reference Range Interpretation Comments NA (test code = 133 mmol/L 135-145 L 4957048851) K (test code = 4.7 mmol/L 3.5-5.0 Slight 5657026658) hemolysis CL (test code = 104 mmol/L 98-108 2121711195) CO2 TOTAL (test code 25 mmol/L 23-31 = 8825994883) AGAP (test code = 4 2-16 3813587888) BUN (test code = 17 mg/dL 7-23 Slight 7985894998) hemolysis GLUCOSE (test code = 189 mg/dL 70-110 H 3679380415) CREATININE (test code 0.82 mg/dL 0.60-1.25 = 6230127367) CALCIUM (test code = 8.0 mg/dL 8.6-10.6 L 9574380630) eGFR (test code = 96.2 mL/min/1.73m2 5185538865) DEWAYNE (test code = DEWAYNE) Association of Glomerular Filtration Rate (GFR) and Staging of Kidney Disease* + -----+ --------+ +| GFR (mL/min/1.73 m2) ?| With Kidney Damage ?| ?Without Kidney Damage+ +------- +---- --+| ?>90 ?| ?Stage one ?| ? Normal ?+ ------+ ---------+--------- +| ?60-89 ?| ?Stage two ?| ? Decreased GFR ? + -----+ --------+ +| ?30-59 ?| ?Stage three ?| ? Stage three ? + -----+ --------+ +| ?15-29 ?| ?Stage four ? | ? Stage four ?+ ------+ ---------+--------- +| ?<15 (or dialysis) ? ?| ?Stage five ? | ? Stage five ?+ ------+ ---------+--------- + *Each stage assumes the associated GFR level has been in effect for at least three months. ?Stages 1 to 5, with or without kidney disease, indicate chronic kidney disease. Notes: Determination of stages one and two (with eGFR >59mL/min/1.73 m2) requires estimation of kidney damage for at least three months as defined by structural or functional abnormalities of the kidney, manifested by either:Pathological abnormalities or Markers of kidney damage (including abnormalities in the composition of the blood or urine or abnormalities in imaging tests). Lab Interpretation Abnormal (test code = 97066-3) [facility] 11:43:29 Test Item Value Reference Range Interpretation Comments MAGNESIUM (test code = 9164873275) 2.1 mg/dL 1.7-2.4 Lab Interpretation (test code = Normal 12341-6) [facility] 11:43:29 Test Item Value Reference Range Interpretation Comments PHOSPHORUS (test code = 8331994508) 3.7 mg/dL 2.5-5.0 Lab Interpretation (test code = Normal 55458-5) [facility] (NA, K, CL, CO2, GLUCOSE, BUN, CREATININE, CA)2022-05-31 11:43:29 Test Item Value Reference Range Interpretation Comments NA (test code = 133 mmol/L 135-145 L 9140329413) K (test code = 4.7 mmol/L 3.5-5.0 Slight 8559256028) hemolysis CL (test code = 104 mmol/L 98-108 0782747220) CO2 TOTAL (test code 25 mmol/L 23-31 = 5056794014) AGAP (test code = 4 2-16 7814462641) BUN (test code = 17 mg/dL 7-23 Slight 2113021247) hemolysis GLUCOSE (test code = 189 mg/dL 70-110 H 2550607355) CREATININE (test code 0.82 mg/dL 0.60-1.25 = 1216149252) CALCIUM (test code = 8.0 mg/dL 8.6-10.6 L 2906966347) eGFR (test code = 96.2 mL/min/1.73m2 8792898822) DEWAYNE (test code = DEWAYNE) Association of Glomerular Filtration Rate (GFR) and Staging of Kidney Disease* + -----+ --------+ +| GFR (mL/min/1.73 m2) ?| With Kidney Damage ?| ?Without Kidney Damage+ +------- +---- --+| ?>90 ?| ?Stage one ?| ? Normal ?+ ------+ ---------+--------- +| ?60-89 ?| ?Stage two ?| ? Decreased GFR ? + -----+ --------+ +| ?30-59 ?| ?Stage three ?| ? Stage three ? + -----+ --------+ +| ?15-29 ?| ?Stage four ? | ? Stage four ?+ ------+ ---------+--------- +| ?<15 (or dialysis) ? ?| ?Stage five ? | ? Stage five ?+ ------+ ---------+--------- + *Each stage assumes the associated GFR level has been in effect for at least three months. ?Stages 1 to 5, with or without kidney disease, indicate chronic kidney disease. Notes: Determination of stages one and two (with eGFR >59mL/min/1.73 m2) requires estimation of kidney damage for at least three months as defined by structural or functional abnormalities of the kidney, manifested by either:Pathological abnormalities or Markers of kidney damage (including abnormalities in the composition of the blood or urine or abnormalities in imaging tests). Lab Interpretation Abnormal (test code = 59026-3) [facility] 11:43:29 Test Item Value Reference Range Interpretation Comments MAGNESIUM (test code = 7413090506) 2.1 mg/dL 1.7-2.4 Lab Interpretation (test code = Normal 91486-3) [facility] 11:43:29 Test Item Value Reference Range Interpretation Comments PHOSPHORUS (test code = 7937942730) 3.7 mg/dL 2.5-5.0 Lab Interpretation (test code = Normal 93113-6) [facility] (NA, K, CL, CO2, GLUCOSE, BUN, CREATININE, CA)2022-05-31 11:43:29 Test Item Value Reference Range Interpretation Comments NA (test code = 133 mmol/L 135-145 L 9819021846) K (test code = 4.7 mmol/L 3.5-5.0 Slight 1890821233) hemolysis CL (test code = 104 mmol/L 98-108 7805328078) CO2 TOTAL (test code 25 mmol/L 23-31 = 6112521101) AGAP (test code = 4 2-16 2035188407) BUN (test code = 17 mg/dL 7-23 Slight 7582115407) hemolysis GLUCOSE (test code = 189 mg/dL 70-110 H 2962364449) CREATININE (test code 0.82 mg/dL 0.60-1.25 = 1919182396) CALCIUM (test code = 8.0 mg/dL 8.6-10.6 L 9178440572) eGFR (test code = 96.2 mL/min/1.73m2 3090364959) DEWAYNE (test code = DEWAYNE) Association of Glomerular Filtration Rate (GFR) and Staging of Kidney Disease* + -----+ --------+ +| GFR (mL/min/1.73 m2) ?| With Kidney Damage ?| ?Without Kidney Damage+ +------- +---- --+| ?>90 ?| ?Stage one ?| ? Normal ?+ ------+ ---------+--------- +| ?60-89 ?| ?Stage two ?| ? Decreased GFR ? + -----+ --------+ +| ?30-59 ?| ?Stage three ?| ? Stage three ? + -----+ --------+ +| ?15-29 ?| ?Stage four ? | ? Stage four ?+ ------+ ---------+--------- +| ?<15 (or dialysis) ? ?| ?Stage five ? | ? Stage five ?+ ------+ ---------+--------- + *Each stage assumes the associated GFR level has been in effect for at least three months. ?Stages 1 to 5, with or without kidney disease, indicate chronic kidney disease. Notes: Determination of stages one and two (with eGFR >59mL/min/1.73 m2) requires estimation of kidney damage for at least three months as defined by structural or functional abnormalities of the kidney, manifested by either:Pathological abnormalities or Markers of kidney damage (including abnormalities in the composition of the blood or urine or abnormalities in imaging tests). Lab Interpretation Abnormal (test code = 13783-8) [facility] 11:30:44 Test Item Value Reference Range Interpretation Comments Fibrinogen (test code = 6715693157) 218 mg/dL 167-453 Lab Interpretation (test code = Normal 39134-7) [facility] 11:30:44 Test Item Value Reference Range Interpretation Comments Fibrinogen (test code = 5736833048) 218 mg/dL 167-453 Lab Interpretation (test code = Normal 60947-2) [facility] 11:30:44 Test Item Value Reference Range Interpretation Comments Fibrinogen (test code = 5793744389) 218 mg/dL 167-453 Lab Interpretation (test code = Normal 97697-5) [facility] / [id number] 11:29:02 Test Item Value Reference Range Interpretation Comments PROTIME PATIENT (test 12.7 See_Comment H [Auto mated message] code = 5964-2) The system [employer] generated this result transmitted ref erence range: 10.1 - 1 2.6 Seconds. The reference range was not used to int erpret this result as normal/abnormal . INR (test code = 6301-6) 1.1 Nor mal INR <1.1; Warfarin Therap eutic range 2.0 to 3. 0 or 2.5 to 3.5, dep ending upon the indica tions. Lab Interpretation (test Abnormal code = 60991-3) [facility] 11:29:02 Test Item Value Reference Range Interpretation Comments APTT Patient (test code 82 See_Comment H [Au tomated message] = 3173-2) The system [employer] generated this result transmitted ref erence range: 26 - 36 Seconds. The reference range was not used to int erpret this result as normal/abnormal . Lab Interpretation (test Abnormal code = 05882-1) [facility] / [id number] 11:29:02 Test Item Value Reference Range Interpretation Comments PROTIME PATIENT (test 12.7 See_Comment H [Auto mated message] code = 5964-2) The system [employer] generated this result transmitted ref erence range: 10.1 - 1 2.6 Seconds. The reference range was not used to int erpret this result as normal/abnormal . INR (test code = 6301-6) 1.1 Nor mal INR <1.1; Warfarin Therap eutic range 2.0 to 3. 0 or 2.5 to 3.5, dep ending upon the indica tions. Lab Interpretation (test Abnormal code = 69791-5) [facility] 11:29:02 Test Item Value Reference Range Interpretation Comments APTT Patient (test code 82 See_Comment H [Au tomated message] = 3173-2) The system [employer] generated this result transmitted ref erence range: 26 - 36 Seconds. The reference range was not used to int erpret this result as normal/abnormal . Lab Interpretation (test Abnormal code = 23113-6) [facility] / [id number] 11:29:02 Test Item Value Reference Range Interpretation Comments PROTIME PATIENT (test 12.7 See_Comment H [Auto mated message] code = 5964-2) The system [employer] generated this result transmitted ref erence range: 10.1 - 1 2.6 Seconds. The reference range was not used to int erpret this result as normal/abnormal . INR (test code = 6301-6) 1.1 Nor mal INR <1.1; Warfarin Therap eutic range 2.0 to 3. 0 or 2.5 to 3.5, dep ending upon the indica tions. Lab Interpretation (test Abnormal code = 51698-4) [facility] 11:29:02 Test Item Value Reference Range Interpretation Comments APTT Patient (test code 82 See_Comment H [Au tomated message] = 3173-2) The system [employer] generated this result transmitted ref erence range: 26 - 36 Seconds. The reference range was not used to int erpret this result as normal/abnormal . Lab Interpretation (test Abnormal code = 69635-4) [facility] 02:12:17 Test Item Value Reference Range Interpretation Comments Fibrinogen (test code = 2643065048) 124 mg/dL 167-453 L Lab Interpretation (test code = Abnormal 76903-7) [facility]2023-04-18 02:12:17 Test Item Value Reference Range Interpretation Comments Fibrinogen (test code = 9852804945) 124 mg/dL 167-453 L Lab Interpretation (test code = Abnormal 68826-1) [place] 33941-04-18 02:12:17 Test Item Value Reference Range Interpretation Comments Fibrinogen (test code = 6059139538) 124 mg/dL 167-453 L Lab Interpretation (test code = Abnormal 39179-2) [facility]2023-04-17 22:27:11 Test Item Value Reference Range Interpretation Comments Fibrinogen (test code = 0075032684) 108 mg/dL 167-453 L Lab Interpretation (test code = Abnormal 72899-7) [facility]2023-04-17 22:27:11 Test Item Value Reference Range Interpretation Comments Fibrinogen (test code = 8636351355) 108 mg/dL 167-453 L Lab Interpretation (test code = Abnormal 21912-2) [facility]2023-04-17 22:27:11 Test Item Value Reference Range Interpretation Comments Fibrinogen (test code = 3135723204) 108 mg/dL 167-453 L Lab Interpretation (test code = Abnormal 95523-7) [facility]2023-04-17 18:54:36 Test Item Value Reference Range Interpretation Comments Fibrinogen (test code = 0449044155) 110 mg/dL 167-453 L Lab Interpretation (test code = Abnormal 75200-9) [facility]2023-04-17 18:54:36 Test Item Value Reference Range Interpretation Comments Fibrinogen (test code = 8613398339) 110 mg/dL 167-453 L Lab Interpretation (test code = Abnormal 91105-3) [facility]2023-04-17 18:54:36 Test Item Value Reference Range Interpretation Comments Fibrinogen (test code = 5472689122) 110 mg/dL 167-453 L Lab Interpretation (test code = Abnormal 66963-1) [facility]2023-04-17 18:54:36 Test Item Value Reference Range Interpretation Comments Fibrinogen (test code = 0915305131) 110 mg/dL 167-453 L Lab Interpretation (test code = Abnormal 54186-8) [facility]2023-04-17 15:54:43 Test Item Value Reference Range Interpretation Comments Fibrinogen (test code = 3865337024) 118 mg/dL 167-453 L Lab Interpretation (test code = Abnormal 53710-4) [facility]2023-04-17 15:54:43 Test Item Value Reference Range Interpretation Comments Fibrinogen (test code = 8555823942) 118 mg/dL 167-453 L Lab Interpretation (test code = Abnormal 03140-6) [facility]2023-04-17 15:54:43 Test Item Value Reference Range Interpretation Comments Fibrinogen (test code = 5668101290) 118 mg/dL 167-453 L Lab Interpretation (test code = Abnormal 34884-4) [facility]2023-04-17 15:54:43 Test Item Value Reference Range Interpretation Comments Fibrinogen (test code = 6843053301) 118 mg/dL 167-453 L Lab Interpretation (test code = Abnormal 08813-4) [facility]2023-04-17 13:43:27 Test Item Value Reference Range Interpretation Comments Fibrinogen (test code = 0947610789) 119 mg/dL 167-453 L Lab Interpretation (test code = Abnormal 54107-9) [facility]2023-04-17 13:43:27 Test Item Value Reference Range Interpretation Comments Fibrinogen (test code = 9208858179) 119 mg/dL 167-453 L Lab Interpretation (test code = Abnormal 22907-4) [facility]2023-04-17 13:43:27 Test Item Value Reference Range Interpretation Comments Fibrinogen (test code = 3764354471) 119 mg/dL 167-453 L Lab Interpretation (test code = Abnormal 18336-7) [facility]2023-04-17 13:43:27 Test Item Value Reference Range Interpretation Comments Fibrinogen (test code = 4377378209) 119 mg/dL 167-453 L Lab Interpretation (test code = Abnormal 18997-8) [facility]2023-04-17 11:50:10 Test Item Value Reference Range Interpretation Comments Fibrinogen (test code = 7607596893) 97 mg/dL 167-453 LL Lab Interpretation (test code = Abnormal 85630-0) [facility] Test Item Value Reference Range Interpretation Comments Fibrinogen (test code = 1263736743) 97 mg/dL 167-453 LL Lab Interpretation (test code = Abnormal 46701-4) [facility]:50:10 Test Item Value Reference Range Interpretation Comments Fibrinogen (test code = 6437091918) 97 mg/dL 167-453 LL Lab Interpretation (test code = Abnormal 37523-2) [facility] 11:50:10 Test Item Value Reference Range Interpretation Comments Fibrinogen (test code = 3026108959) 97 mg/dL 167-453 LL Lab Interpretation (test code = Abnormal 66878-3) [facility] WITH [id number] 10:13:04 Test Item Value Reference Range Interpretation Comments WBC (test code = 9.36 See_Comment [Automated 6690-2) message] The sy stem which generated this result transmitted reference range : 4.20 - 10.70 10*3/?L. The reference range was not used to interpret this result as normal/abnormal . RBC (test code = 4.03 See_Comment L [Automated 789-8) message] The sy stem which generated this result transmitted reference range : 4.26 - 5.52 10*6/?L. The reference range was not used to interpret this result as normal/abnormal . HGB (test code = 11.7 g/dL 12.2-16.4 L 718-7) HCT (test code = 34.8 % 38.4-49.3 L 4544-3) MCV (test code = 86.4 fL 81.7-95.6 787-2) MCH (test code = 29.0 pg 26.1-32.7 785-6) MCHC (test code = 33.6 g/dL 31.2-35.0 786-4) RDW-SD (test code = 45.3 fL 38.5-51.6 24043-4) RDW-CV (test code = 14.5 % 12.1-15.4 788-0) PLT (test code = 174 See_Comment [Automated 777-3) message] The sy stem which generated this result transmitted reference range : 150 - 328 10*3/ ?L. The reference r mitra was not used to interpret this result as normal/abnormal . MPV (test code = 8.9 fL 9.8-13.0 L 87359-5) NRBC/100 WBC (test 0.3 See_Comment [Automat ed code = 2920187768) message] The system which generated this result transmitted reference range : 0.0 - 10.0 /100 WBCs. The refer ence range was not u sed to interpret th is result as normal/abnormal . NRBC x10^3 (test code 0.03 See_Comment [Auto mated = 7709580417) message] The s ystem which generated this result transmitted reference range : 10*3/?L. The reference range was not used to interpret this result as normal/abnormal . GRAN MAT (NEUT) % 63.0 % (test code = 770-8) IMM GRAN % (test code 3.60 % = 2042089950) LYMPH % (test code = 17.5 % 736-9) MONO % (test code = 10.8 % 5905-5) EOS % (test code = 4.5 % 713-8) BASO % (test code = 0.6 % 706-2) GRAN MAT x10^3(ANC) 5.89 10*3/uL 1.99-6.95 (test code = 9018201306) IMM GRAN x10^3 (test 0.34 10*3/uL 0.00-0.06 H code = 0401352843) LYMPH x10^3 (test code 1.64 10*3/uL 1.09-3.23 = 731-0) MONO x10^3 (test code 1.01 10*3/uL 0.36-1.02 = 742-7) EOS x10^3 (test code = 0.42 10*3/uL 0.06-0.53 711-2) BASO x10^3 (test code 0.06 10*3/uL 0.01-0.09 = 704-7) REACT LYMPHS (test Rare code = 9531090752) Lab Interpretation Abnormal (test code = 58395-8) [facility] WITH [id number] 10:13:04 Test Item Value Reference Range Interpretation Comments WBC (test code = 9.36 See_Comment [Automated 6690-2) message] The sy stem which generated this result transmitted reference range : 4.20 - 10.70 10*3/?L. The reference range was not used to interpret this result as normal/abnormal . RBC (test code = 4.03 See_Comment L [Automated 789-8) message] The sy stem which generated this result transmitted reference range : 4.26 - 5.52 10*6/?L. The reference range was not used to interpret this result as normal/abnormal . HGB (test code = 11.7 g/dL 12.2-16.4 L 718-7) HCT (test code = 34.8 % 38.4-49.3 L 4544-3) MCV (test code = 86.4 fL 81.7-95.6 787-2) MCH (test code = 29.0 pg 26.1-32.7 785-6) MCHC (test code = 33.6 g/dL 31.2-35.0 786-4) RDW-SD (test code = 45.3 fL 38.5-51.6 03518-2) RDW-CV (test code = 14.5 % 12.1-15.4 788-0) PLT (test code = 174 See_Comment [Automated 777-3) message] The sy stem which generated this result transmitted reference range : 150 - 328 10*3/ ?L. The reference r mitra was not used to interpret this result as normal/abnormal . MPV (test code = 8.9 fL 9.8-13.0 L 03220-1) NRBC/100 WBC (test 0.3 See_Comment [Automat ed code = 5076399160) message] The system which generated this result transmitted reference range : 0.0 - 10.0 /100 WBCs. The refer ence range was not u sed to interpret th is result as normal/abnormal . NRBC x10^3 (test code 0.03 See_Comment [Auto mated = 2261961776) message] The s ystem which generated this result transmitted reference range : 10*3/?L. The reference range was not used to interpret this result as normal/abnormal . GRAN MAT (NEUT) % 63.0 % (test code = 770-8) IMM GRAN % (test code 3.60 % = 3861174602) LYMPH % (test code = 17.5 % 736-9) MONO % (test code = 10.8 % 5905-5) EOS % (test code = 4.5 % 713-8) BASO % (test code = 0.6 % 706-2) GRAN MAT x10^3(ANC) 5.89 10*3/uL 1.99-6.95 (test code = 7907277703) IMM GRAN x10^3 (test 0.34 10*3/uL 0.00-0.06 H code = 7433433205) LYMPH x10^3 (test code 1.64 10*3/uL 1.09-3.23 = 731-0) MONO x10^3 (test code 1.01 10*3/uL 0.36-1.02 = 742-7) EOS x10^3 (test code = 0.42 10*3/uL 0.06-0.53 711-2) BASO x10^3 (test code 0.06 10*3/uL 0.01-0.09 = 704-7) REACT LYMPHS (test Rare code = 1107443126) Lab Interpretation Abnormal (test code = 36729-0) [facility] WITH [id number] 10:13:04 Test Item Value Reference Range Interpretation Comments WBC (test code = 9.36 See_Comment [Automated 6571-2) message] The sy stem which generated this result transmitted reference range : 4.20 - 10.70 10*3/?L. The reference range was not used to interpret this result as normal/abnormal . RBC (test code = 4.03 See_Comment L [Automated 491-8) message] The sy stem which generated this result transmitted reference range : 4.26 - 5.52 10*6/?L. The reference range was not used to interpret this result as normal/abnormal . HGB (test code = 11.7 g/dL 12.2-16.4 L 718-7) HCT (test code = 34.8 % 38.4-49.3 L 4544-3) MCV (test code = 86.4 fL 81.7-95.6 787-2) MCH (test code = 29.0 pg 26.1-32.7 785-6) MCHC (test code = 33.6 g/dL 31.2-35.0 786-4) RDW-SD (test code = 45.3 fL 38.5-51.6 83129-3) RDW-CV (test code = 14.5 % 12.1-15.4 788-0) PLT (test code = 174 See_Comment [Automated 777-3) message] The sy stem which generated this result transmitted reference range : 150 - 328 10*3/ ?L. The reference r mitra was not used to interpret this result as normal/abnormal . MPV (test code = 8.9 fL 9.8-13.0 L 44893-2) NRBC/100 WBC (test 0.3 See_Comment [Automat ed code = 9495546121) message] The system which generated this result transmitted reference range : 0.0 - 10.0 /100 WBCs. The refer ence range was not u sed to interpret th is result as normal/abnormal . NRBC x10^3 (test code 0.03 See_Comment [Auto mated = 6669067103) message] The s ystem which generated this result transmitted reference range : 10*3/?L. The reference range was not used to interpret this result as normal/abnormal . GRAN MAT (NEUT) % 63.0 % (test code = 770-8) IMM GRAN % (test code 3.60 % = 3682578181) LYMPH % (test code = 17.5 % 736-9) MONO % (test code = 10.8 % 5905-5) EOS % (test code = 4.5 % 713-8) BASO % (test code = 0.6 % 706-2) GRAN MAT x10^3(ANC) 5.89 10*3/uL 1.99-6.95 (test code = 6043404930) IMM GRAN x10^3 (test 0.34 10*3/uL 0.00-0.06 H code = 3097147175) LYMPH x10^3 (test code 1.64 10*3/uL 1.09-3.23 = 731-0) MONO x10^3 (test code 1.01 10*3/uL 0.36-1.02 = 742-7) EOS x10^3 (test code = 0.42 10*3/uL 0.06-0.53 711-2) BASO x10^3 (test code 0.06 10*3/uL 0.01-0.09 = 704-7) REACT LYMPHS (test Rare code = 8196032123) Lab Interpretation Abnormal (test code = 65289-0) [facility] WITH [id number] 10:13:04 Test Item Value Reference Range Interpretation Comments WBC (test code = 9.36 See_Comment [Automated 5647-2) message] The sy stem which generated this result transmitted reference range : 4.20 - 10.70 10*3/?L. The reference range was not used to interpret this result as normal/abnormal . RBC (test code = 4.03 See_Comment L [Automated 499-8) message] The sy stem which generated this result transmitted reference range : 4.26 - 5.52 10*6/?L. The reference range was not used to interpret this result as normal/abnormal . HGB (test code = 11.7 g/dL 12.2-16.4 L 718-7) HCT (test code = 34.8 % 38.4-49.3 L 4544-3) MCV (test code = 86.4 fL 81.7-95.6 787-2) MCH (test code = 29.0 pg 26.1-32.7 785-6) MCHC (test code = 33.6 g/dL 31.2-35.0 786-4) RDW-SD (test code = 45.3 fL 38.5-51.6 67250-1) RDW-CV (test code = 14.5 % 12.1-15.4 788-0) PLT (test code = 174 See_Comment [Automated 777-3) message] The sy stem which generated this result transmitted reference range : 150 - 328 10*3/ ?L. The reference r mitra was not used to interpret this result as normal/abnormal . MPV (test code = 8.9 fL 9.8-13.0 L 75756-9) NRBC/100 WBC (test 0.3 See_Comment [Automat ed code = 5940834152) message] The system which generated this result transmitted reference range : 0.0 - 10.0 /100 WBCs. The refer ence range was not u sed to interpret th is result as normal/abnormal . NRBC x10^3 (test code 0.03 See_Comment [Auto mated = 1482924748) message] The s ystem which generated this result transmitted reference range : 10*3/?L. The reference range was not used to interpret this result as normal/abnormal . GRAN MAT (NEUT) % 63.0 % (test code = 770-8) IMM GRAN % (test code 3.60 % = 5191598663) LYMPH % (test code = 17.5 % 736-9) MONO % (test code = 10.8 % 5905-5) EOS % (test code = 4.5 % 713-8) BASO % (test code = 0.6 % 706-2) GRAN MAT x10^3(ANC) 5.89 10*3/uL 1.99-6.95 (test code = 5272662170) IMM GRAN x10^3 (test 0.34 10*3/uL 0.00-0.06 H code = 8557760583) LYMPH x10^3 (test code 1.64 10*3/uL 1.09-3.23 = 731-0) MONO x10^3 (test code 1.01 10*3/uL 0.36-1.02 = 742-7) EOS x10^3 (test code = 0.42 10*3/uL 0.06-0.53 711-2) BASO x10^3 (test code 0.06 10*3/uL 0.01-0.09 = 704-7) REACT LYMPHS (test Rare code = 8140375361) Lab Interpretation Abnormal (test code = 16810-3) [facility] Test Item Value Reference Range Interpretation Comments PHOSPHORUS (test code = 5416092691) 4.2 mg/dL 2.5-5.0 Lab Interpretation (test code = Normal 78452-8) [facility] 10:10:03 Test Item Value Reference Range Interpretation Comments MAGNESIUM (test code = 8504799381) 2.0 mg/dL 1.7-2.4 Lab Interpretation (test code = Normal 35752-1) [facility] (NA, K, CL, CO2, GLUCOSE, BUN, CREATININE, CA)2022-05-30 10:10:03 Test Item Value Reference Range Interpretation Comments NA (test code = 133 mmol/L 135-145 L 5219290262) K (test code = 3.9 mmol/L 3.5-5.0 4251712596) CL (test code = 103 mmol/L 98-108 1434789691) CO2 TOTAL (test code = 25 mmol/L 23-31 8990125884) AGAP (test code = 5 2-16 4380704314) BUN (test code = 22 mg/dL 7-23 3221864282) GLUCOSE (test code = 128 mg/dL 70-110 H 3242022010) CREATININE (test code = 0.87 mg/dL 0.60-1.25 4464455390) CALCIUM (test code = 8.2 mg/dL 8.6-10.6 L 1694429844) eGFR (test code = 89.8 mL/min/1.73m2 8962868003) DEWAYNE (test code = DEWAYNE) Association of Glomerular Filtration Rate (GFR) and Staging of Kidney Disease* + --+ --+ ------+| GFR (mL/min/1.73 m2) ?| With Kidney Damage ?| ?Without Kidney Damage+ --------+ --------+ +| ?>90 ?| ?Stage one ?| ? Normal ?+ ---+ ---+ -------+| ?60-89 ?| ?Stage two ?| ? Decreased GFR ? + --+ --+ ------+| ?30-59 ?| ?Stage three ?| ? Stage three ? + --+ --+ ------+| ?15-29 ?| ?Stage four ? | ? Stage four ?+ ---+ ---+ -------+| ?<15 (or dialysis) ? ?| ?Stage five ? | ? Stage five ?+ ---+ ---+ -------+ *Each stage assumes the associated GFR level has been in effect for at least three months. ?Stages 1 to 5, with or without kidney disease, indicate chronic kidney disease. Notes: Determination of stages one and two (with eGFR >59mL/min/1.73 m2) requires estimation of kidney damage for at least three months as defined by structural or functional abnormalities of the kidney, manifested by either:Pathological abnormalities or Markers of kidney damage (including abnormalities in the composition of the blood or urine or abnormalities in imaging tests). Lab Interpretation Abnormal (test code = 20087-7) [facility]:10:03 Test Item Value Reference Range Interpretation Comments PHOSPHORUS (test code = 3698909920) 4.2 mg/dL 2.5-5.0 Lab Interpretation (test code = Normal 56822-3) [facility] 10:10:03 Test Item Value Reference Range Interpretation Comments MAGNESIUM (test code = 5193904322) 2.0 mg/dL 1.7-2.4 Lab Interpretation (test code = Normal 10310-5) [facility] (NA, K, CL, CO2, GLUCOSE, BUN, CREATININE, CA)2022-05-30 10:10:03 Test Item Value Reference Range Interpretation Comments NA (test code = 133 mmol/L 135-145 L 0477938567) K (test code = 3.9 mmol/L 3.5-5.0 8724311567) CL (test code = 103 mmol/L 98-108 4872990204) CO2 TOTAL (test code = 25 mmol/L 23-31 0860280818) AGAP (test code = 5 2-16 8641945187) BUN (test code = 22 mg/dL 7-23 3963380713) GLUCOSE (test code = 128 mg/dL 70-110 H 8098185946) CREATININE (test code = 0.87 mg/dL 0.60-1.25 6779934160) CALCIUM (test code = 8.2 mg/dL 8.6-10.6 L 1676597308) eGFR (test code = 89.8 mL/min/1.73m2 2292481819) DEWAYNE (test code = DEWAYNE) Association of Glomerular Filtration Rate (GFR) and Staging of Kidney Disease* + --+ --+ ------+| GFR (mL/min/1.73 m2) ?| With Kidney Damage ?| ?Without Kidney Damage+ --------+ --------+ +| ?>90 ?| ?Stage one ?| ? Normal ?+ ---+ ---+ -------+| ?60-89 ?| ?Stage two ?| ? Decreased GFR ? + --+ --+ ------+| ?30-59 ?| ?Stage three ?| ? Stage three ? + --+ --+ ------+| ?15-29 ?| ?Stage four ? | ? Stage four ?+ ---+ ---+ -------+| ?<15 (or dialysis) ? ?| ?Stage five ? | ? Stage five ?+ ---+ ---+ -------+ *Each stage assumes the associated GFR level has been in effect for at least three months. ?Stages 1 to 5, with or without kidney disease, indicate chronic kidney disease. Notes: Determination of stages one and two (with eGFR >59mL/min/1.73 m2) requires estimation of kidney damage for at least three months as defined by structural or functional abnormalities of the kidney, manifested by either:Pathological abnormalities or Markers of kidney damage (including abnormalities in the composition of the blood or urine or abnormalities in imaging tests). Lab Interpretation Abnormal (test code = 88667-4) [facility]:10:03 Test Item Value Reference Range Interpretation Comments PHOSPHORUS (test code = 5069279588) 4.2 mg/dL 2.5-5.0 Lab Interpretation (test code = Normal 67778-3) [facility] 10:10:03 Test Item Value Reference Range Interpretation Comments MAGNESIUM (test code = 3633140277) 2.0 mg/dL 1.7-2.4 Lab Interpretation (test code = Normal 65954-4) [facility] (NA, K, CL, CO2, GLUCOSE, BUN, CREATININE, CA)2022-05-30 10:10:03 Test Item Value Reference Range Interpretation Comments NA (test code = 133 mmol/L 135-145 L 5100075137) K (test code = 3.9 mmol/L 3.5-5.0 7596759136) CL (test code = 103 mmol/L 98-108 2183268894) CO2 TOTAL (test code = 25 mmol/L 23-31 5254332046) AGAP (test code = 5 2-16 4521612567) BUN (test code = 22 mg/dL 7-23 1587094922) GLUCOSE (test code = 128 mg/dL 70-110 H 5487187938) CREATININE (test code = 0.87 mg/dL 0.60-1.25 0749606172) CALCIUM (test code = 8.2 mg/dL 8.6-10.6 L 7319403407) eGFR (test code = 89.8 mL/min/1.73m2 7627340111) DEWAYNE (test code = DEWAYNE) Association of Glomerular Filtration Rate (GFR) and Staging of Kidney Disease* + --+ --+ ------+| GFR (mL/min/1.73 m2) ?| With Kidney Damage ?| ?Without Kidney Damage+ --------+ --------+ +| ?>90 ?| ?Stage one ?| ? Normal ?+ ---+ ---+ -------+| ?60-89 ?| ?Stage two ?| ? Decreased GFR ? + --+ --+ ------+| ?30-59 ?| ?Stage three ?| ? Stage three ? + --+ --+ ------+| ?15-29 ?| ?Stage four ? | ? Stage four ?+ ---+ ---+ -------+| ?<15 (or dialysis) ? ?| ?Stage five ? | ? Stage five ?+ ---+ ---+ -------+ *Each stage assumes the associated GFR level has been in effect for at least three months. ?Stages 1 to 5, with or without kidney disease, indicate chronic kidney disease. Notes: Determination of stages one and two (with eGFR >59mL/min/1.73 m2) requires estimation of kidney damage for at least three months as defined by structural or functional abnormalities of the kidney, manifested by either:Pathological abnormalities or Markers of kidney damage (including abnormalities in the composition of the blood or urine or abnormalities in imaging tests). Lab Interpretation Abnormal (test code = 47864-9) [facility]:10:03 Test Item Value Reference Range Interpretation Comments PHOSPHORUS (test code = 7839621845) 4.2 mg/dL 2.5-5.0 Lab Interpretation (test code = Normal 78705-3) [facility] 10:10:03 Test Item Value Reference Range Interpretation Comments MAGNESIUM (test code = 1435576261) 2.0 mg/dL 1.7-2.4 Lab Interpretation (test code = Normal 33997-9) [facility] (NA, K, CL, CO2, GLUCOSE, BUN, CREATININE, CA)2022-05-30 10:10:03 Test Item Value Reference Range Interpretation Comments NA (test code = 133 mmol/L 135-145 L 8622331556) K (test code = 3.9 mmol/L 3.5-5.0 2684077072) CL (test code = 103 mmol/L 98-108 9672269546) CO2 TOTAL (test code = 25 mmol/L 23-31 9203547247) AGAP (test code = 5 2-16 2003813769) BUN (test code = 22 mg/dL 7-23 0754949982) GLUCOSE (test code = 128 mg/dL 70-110 H 6462213321) CREATININE (test code = 0.87 mg/dL 0.60-1.25 8078658884) CALCIUM (test code = 8.2 mg/dL 8.6-10.6 L 8380441466) eGFR (test code = 89.8 mL/min/1.73m2 7696767849) DEWAYNE (test code = DEWAYNE) Association of Glomerular Filtration Rate (GFR) and Staging of Kidney Disease* + --+ --+ ------+| GFR (mL/min/1.73 m2) ?| With Kidney Damage ?| ?Without Kidney Damage+ --------+ --------+ +| ?>90 ?| ?Stage one ?| ? Normal ?+ ---+ ---+ -------+| ?60-89 ?| ?Stage two ?| ? Decreased GFR ? + --+ --+ ------+| ?30-59 ?| ?Stage three ?| ? Stage three ? + --+ --+ ------+| ?15-29 ?| ?Stage four ? | ? Stage four ?+ ---+ ---+ -------+| ?<15 (or dialysis) ? ?| ?Stage five ? | ? Stage five ?+ ---+ ---+ -------+ *Each stage assumes the associated GFR level has been in effect for at least three months. ?Stages 1 to 5, with or without kidney disease, indicate chronic kidney disease. Notes: Determination of stages one and two (with eGFR >59mL/min/1.73 m2) requires estimation of kidney damage for at least three months as defined by structural or functional abnormalities of the kidney, manifested by either:Pathological abnormalities or Markers of kidney damage (including abnormalities in the composition of the blood or urine or abnormalities in imaging tests). Lab Interpretation Abnormal (test code = 56881-8) [facility]2023-04-17 09:52:38 Test Item Value Reference Range Interpretation Comments Fibrinogen (test code = 0581951021) 86 mg/dL 167-453 LL Lab Interpretation (test code = Abnormal 75635-0) [facility] Test Item Value Reference Range Interpretation Comments Fibrinogen (test code = 8090975385) 86 mg/dL 167-453 LL Lab Interpretation (test code = Abnormal 40080-3) [facility]2023-04-17 09:52:38 Test Item Value Reference Range Interpretation Comments Fibrinogen (test code = 1750390526) 86 mg/dL 167-453 LL Lab Interpretation (test code = Abnormal 05950-1) [facility]2023-04-17 09:52:38 Test Item Value Reference Range Interpretation Comments Fibrinogen (test code = 0012750362) 86 mg/dL 167-453 LL Lab Interpretation (test code = Abnormal 42575-3) [place] 37816023-04-17 09:51:57 Test Item Value Reference Range Interpretation Comments APTT Patient (test code 44 See_Comment H [Au tomated message] = 9553-2) The system [employer] generated this result transmitted ref erence range: 26 - 36 Seconds. The reference range was not used to int erpret this result as normal/abnormal . Lab Interpretation (test Abnormal code = 73405-6) [place] 37816023-04-17 09:51:57 Test Item Value Reference Range Interpretation Comments APTT Patient (test code 44 See_Comment H [Au tomated message] = 3173-2) The system [employer] generated this result transmitted ref erence range: 26 - 36 Seconds. The reference range was not used to int erpret this result as normal/abnormal . Lab Interpretation (test Abnormal code = 87637-7) [place] [address]-04-17 09:51:57 Test Item Value Reference Range Interpretation Comments APTT Patient (test code 44 See_Comment H [Au tomated message] = 3173-2) The system [employer] generated this result transmitted ref erence range: 26 - 36 Seconds. The reference range was not used to int erpret this result as normal/abnormal . Lab Interpretation (test Abnormal code = 46350-4) [place] 37816023-04-17 09:51:57 Test Item Value Reference Range Interpretation Comments APTT Patient (test code 44 See_Comment H [Au tomated message] = 3173-2) The system [employer] generated this result transmitted ref erence range: 26 - 36 Seconds. The reference range was not used to int erpret this result as normal/abnormal . Lab Interpretation (test Abnormal code = 11851-9) [facility]2023-04-17 07:28:55 Test Item Value Reference Range Interpretation Comments Fibrinogen (test code = 3568291106) 73 mg/dL 167-453 LL Lab Interpretation (test code = Abnormal 19181-5) [facility] Test Item Value Reference Range Interpretation Comments Fibrinogen (test code = 2244256865) 73 mg/dL 167-453 LL Lab Interpretation (test code = Abnormal 51833-2) [address]04-17 07:28:55 Test Item Value Reference Range Interpretation Comments Fibrinogen (test code = 5830609601) 73 mg/dL 167-453 LL Lab Interpretation (test code = Abnormal 25186-6) [address]04-17 07:28:55 Test Item Value Reference Range Interpretation Comments Fibrinogen (test code = 5400565563) 73 mg/dL 167-453 LL Lab Interpretation (test code = Abnormal 25091-5) [facility] (for use with Heparin Drip)2022-05-30 06:39:14 Test Item Value Reference Range Interpretation Comments APTT Patient (test code 44 See_Comment H [Au tomated message] = 3173-2) The system [employer] generated this result transmitted ref erence range: 26 - 36 Seconds. The reference range was not used to int erpret this result as normal/abnormal . Lab Interpretation (test Abnormal code = 11031-0) [facility] (for use with Heparin Drip)2022-05-30 06:39:14 Test Item Value Reference Range Interpretation Comments APTT Patient (test code 44 See_Comment H [Au tomated message] = 3173-2) The system Mia[employer] generated this result transmitted ref erence range: 26 - 36 Seconds. The reference range was not used to int erpret this result as normal/abnormal . Lab Interpretation (test Abnormal code = 09429-3) [facility] (for use with Heparin Drip)2022-05-30 06:39:14 Test Item Value Reference Range Interpretation Comments APTT Patient (test code 44 See_Comment H [Au tomated message] = 3173-2) The system [employer] generated this result transmitted ref erence range: 26 - 36 Seconds. The reference range was not used to int erpret this result as normal/abnormal . Lab Interpretation (test Abnormal code = 16046-3) [facility] (for use with Heparin Drip)2022-05-30 06:39:14 Test Item Value Reference Range Interpretation Comments APTT Patient (test code 44 See_Comment H [Au tomated message] = 3173-2) The system [employer] generated this result transmitted ref erence range: 26 - 36 Seconds. The reference range was not used to int erpret this result as normal/abnormal . Lab Interpretation (test Abnormal code = 67750-1) [facility] Test Item Value Reference Range Interpretation Comments Fibrinogen (test code = 7493292284) 71 mg/dL 167-453 LL Lab Interpretation (test code = Abnormal 54055-6) [facility]2023-04-17 05:26:04 Test Item Value Reference Range Interpretation Comments Fibrinogen (test code = 2877477918) 71 mg/dL 167-453 LL Lab Interpretation (test code = Abnormal 66996-0) [facility]2023-04-17 05:26:04 Test Item Value Reference Range Interpretation Comments Fibrinogen (test code = 5898522960) 71 mg/dL 167-453 LL Lab Interpretation (test code = Abnormal 91586-2) [facility]2023-04-17 05:26:04 Test Item Value Reference Range Interpretation Comments Fibrinogen (test code = 6357987378) 71 mg/dL 167-453 LL Lab Interpretation (test code = Abnormal 48059-7) [facility]2023-04-16 23:49:05 Test Item Value Reference Range Interpretation Comments Fibrinogen (test code = 2079831889) 98 mg/dL 167-453 LL Lab Interpretation (test code = Abnormal 03576-5) [facility]2023-04-16 23:49:05 Test Item Value Reference Range Interpretation Comments Fibrinogen (test code = 5484332630) 98 mg/dL 167-453 LL Lab Interpretation (test code = Abnormal 39762-7) [facility]2023-04-16 23:49:05 Test Item Value Reference Range Interpretation Comments Fibrinogen (test code = 8119748675) 98 mg/dL 167-453 LL Lab Interpretation (test code = Abnormal 05599-4) [facility]2023-04-16 23:49:05 Test Item Value Reference Range Interpretation Comments Fibrinogen (test code = 1071962390) 98 mg/dL 167-453 LL Lab Interpretation (test code = Abnormal 02561-1) [facility]2023-04-16 21:48:37 Test Item Value Reference Range Interpretation Comments Fibrinogen (test code = 8725868210) 113 mg/dL 167-453 L Lab Interpretation (test code = Abnormal 89137-0) [facility]2023-04-16 21:48:37 Test Item Value Reference Range Interpretation Comments Fibrinogen (test code = 7404267283) 113 mg/dL 167-453 L Lab Interpretation (test code = Abnormal 08220-1) [facility] Test Item Value Reference Range Interpretation Comments Fibrinogen (test code = 9452940110) 113 mg/dL 167-453 L Lab Interpretation (test code = Abnormal 83326-6) [facility]2023-04-16 21:48:37 Test Item Value Reference Range Interpretation Comments Fibrinogen (test code = 7225434492) 113 mg/dL 167-453 L Lab Interpretation (test code = Abnormal 31774-2) [facility] METABOLIC PANEL (NA, K, CL, CO2, GLUCOSE, BUN, CREATININE, CA)2022-05-29 15:33:06 Test Item Value Reference Range Interpretation Comments NA (test code = 139 mmol/L 135-145 3050417023) K (test code = 4.2 mmol/L 3.5-5.0 4774454407) CL (test code = 104 mmol/L 98-108 5285233831) CO2 TOTAL (test code = 29 mmol/L 23-31 2880485801) AGAP (test code = 6 2-16 3662731891) BUN (test code = 25 mg/dL 7-23 H 9160864490) GLUCOSE (test code = 85 mg/dL 70-110 6973614370) CREATININE (test code = 1.02 mg/dL 0.60-1.25 5055125660) CALCIUM (test code = 8.7 mg/dL 8.6-10.6 2519228804) eGFR (test code = 74.8 mL/min/1.73m2 0103362874) DEWAYNE (test code = DEWAYNE) Association of Glomerular Filtration Rate (GFR) and Staging of Kidney Disease* + --+ --+ ------+| GFR (mL/min/1.73 m2) ?| With Kidney Damage ?| ?Without Kidney Damage+ --------+ --------+ +| ?>90 ?| ?Stage one ?| ? Normal ?+ ---+ ---+ -------+| ?60-89 ?| ?Stage two ?| ? Decreased GFR ? + --+ --+ ------+| ?30-59 ?| ?Stage three ?| ? Stage three ? + --+ --+ ------+| ?15-29 ?| ?Stage four ? | ? Stage four ?+ ---+ ---+ -------+| ?<15 (or dialysis) ? ?| ?Stage five ? | ? Stage five ?+ ---+ ---+ -------+ *Each stage assumes the associated GFR level has been in effect for at least three months. ?Stages 1 to 5, with or without kidney disease, indicate chronic kidney disease. Notes: Determination of stages one and two (with eGFR >59mL/min/1.73 m2) requires estimation of kidney damage for at least three months as defined by structural or functional abnormalities of the kidney, manifested by either:Pathological abnormalities or Markers of kidney damage (including abnormalities in the composition of the blood or urine or abnormalities in imaging tests). Lab Interpretation Abnormal (test code = 56722-9) [facility] METABOLIC PANEL (NA, K, CL, CO2, GLUCOSE, BUN, CREATININE, CA)2022-05-29 15:33:06 Test Item Value Reference Range Interpretation Comments NA (test code = 139 mmol/L 135-145 7015937016) K (test code = 4.2 mmol/L 3.5-5.0 8593688205) CL (test code = 104 mmol/L 98-108 6334603370) CO2 TOTAL (test code = 29 mmol/L 23-31 4941689811) AGAP (test code = 6 2-16 6342891482) BUN (test code = 25 mg/dL 7-23 H 7448443601) GLUCOSE (test code = 85 mg/dL 70-110 1230267093) CREATININE (test code = 1.02 mg/dL 0.60-1.25 8540720638) CALCIUM (test code = 8.7 mg/dL 8.6-10.6 8193659810) eGFR (test code = 74.8 mL/min/1.73m2 7809280741) DEWAYNE (test code = DEWAYNE) Association of Glomerular Filtration Rate (GFR) and Staging of Kidney Disease* + --+ --+ ------+| GFR (mL/min/1.73 m2) ?| With Kidney Damage ?| ?Without Kidney Damage+ --------+ --------+ +| ?>90 ?| ?Stage one ?| ? Normal ?+ ---+ ---+ -------+| ?60-89 ?| ?Stage two ?| ? Decreased GFR ? + --+ --+ ------+| ?30-59 ?| ?Stage three ?| ? Stage three ? + --+ --+ ------+| ?15-29 ?| ?Stage four ? | ? Stage four ?+ ---+ ---+ -------+| ?<15 (or dialysis) ? ?| ?Stage five ? | ? Stage five ?+ ---+ ---+ -------+ *Each stage assumes the associated GFR level has been in effect for at least three months. ?Stages 1 to 5, with or without kidney disease, indicate chronic kidney disease. Notes: Determination of stages one and two (with eGFR >59mL/min/1.73 m2) requires estimation of kidney damage for at least three months as defined by structural or functional abnormalities of the kidney, manifested by either:Pathological abnormalities or Markers of kidney damage (including abnormalities in the composition of the blood or urine or abnormalities in imaging tests). Lab Interpretation Abnormal (test code = 54817-4) [facility] METABOLIC PANEL (NA, K, CL, CO2, GLUCOSE, BUN, CREATININE, CA)2022-05-29 15:33:06 Test Item Value Reference Range Interpretation Comments NA (test code = 139 mmol/L 135-145 2071387747) K (test code = 4.2 mmol/L 3.5-5.0 7428675945) CL (test code = 104 mmol/L 98-108 8062984225) CO2 TOTAL (test code = 29 mmol/L 23-31 9372535780) AGAP (test code = 6 2-16 3472343073) BUN (test code = 25 mg/dL 7-23 H 6639297481) GLUCOSE (test code = 85 mg/dL 70-110 4907749352) CREATININE (test code = 1.02 mg/dL 0.60-1.25 1996735309) CALCIUM (test code = 8.7 mg/dL 8.6-10.6 5964730137) eGFR (test code = 74.8 mL/min/1.73m2 6136769519) DEWAYNE (test code = DEWAYNE) Association of Glomerular Filtration Rate (GFR) and Staging of Kidney Disease* + --+ --+ ------+| GFR (mL/min/1.73 m2) ?| With Kidney Damage ?| ?Without Kidney Damage+ --------+ --------+ +| ?>90 ?| ?Stage one ?| ? Normal ?+ ---+ ---+ -------+| ?60-89 ?| ?Stage two ?| ? Decreased GFR ? + --+ --+ ------+| ?30-59 ?| ?Stage three ?| ? Stage three ? + --+ --+ ------+| ?15-29 ?| ?Stage four ? | ? Stage four ?+ ---+ ---+ -------+| ?<15 (or dialysis) ? ?| ?Stage five ? | ? Stage five ?+ ---+ ---+ -------+ *Each stage assumes the associated GFR level has been in effect for at least three months. ?Stages 1 to 5, with or without kidney disease, indicate chronic kidney disease. Notes: Determination of stages one and two (with eGFR >59mL/min/1.73 m2) requires estimation of kidney damage for at least three months as defined by structural or functional abnormalities of the kidney, manifested by either:Pathological abnormalities or Markers of kidney damage (including abnormalities in the composition of the blood or urine or abnormalities in imaging tests). Lab Interpretation Abnormal (test code = 56986-9) [facility] (NA, K, CL, CO2, GLUCOSE, BUN, CREATININE, CA)2022-05-29 15:33:06 Test Item Value Reference Range Interpretation Comments NA (test code = 139 mmol/L 135-145 8114280163) K (test code = 4.2 mmol/L 3.5-5.0 8330940409) CL (test code = 104 mmol/L 98-108 6047068669) CO2 TOTAL (test code = 29 mmol/L 23-31 1397629945) AGAP (test code = 6 2-16 4005477565) BUN (test code = 25 mg/dL 7-23 H 8944060257) GLUCOSE (test code = 85 mg/dL 70-110 2898407386) CREATININE (test code = 1.02 mg/dL 0.60-1.25 7710330633) CALCIUM (test code = 8.7 mg/dL 8.6-10.6 3901974004) eGFR (test code = 74.8 mL/min/1.73m2 5355586361) DEWAYNE (test code = DEWAYNE) Association of Glomerular Filtration Rate (GFR) and Staging of Kidney Disease* + --+ --+ ------+| GFR (mL/min/1.73 m2) ?| With Kidney Damage ?| ?Without Kidney Damage+ --------+ --------+ +| ?>90 ?| ?Stage one ?| ? Normal ?+ ---+ ---+ -------+| ?60-89 ?| ?Stage two ?| ? Decreased GFR ? + --+ --+ ------+| ?30-59 ?| ?Stage three ?| ? Stage three ? + --+ --+ ------+| ?15-29 ?| ?Stage four ? | ? Stage four ?+ ---+ ---+ -------+| ?<15 (or dialysis) ? ?| ?Stage five ? | ? Stage five ?+ ---+ ---+ -------+ *Each stage assumes the associated GFR level has been in effect for at least three months. ?Stages 1 to 5, with or without kidney disease, indicate chronic kidney disease. Notes: Determination of stages one and two (with eGFR >59mL/min/1.73 m2) requires estimation of kidney damage for at least three months as defined by structural or functional abnormalities of the kidney, manifested by either:Pathological abnormalities or Markers of kidney damage (including abnormalities in the composition of the blood or urine or abnormalities in imaging tests). Lab Interpretation Abnormal (test code = 15029-5) [facility]2023-04-16 15:15:42 Test Item Value Reference Range Interpretation Comments Fibrinogen (test code = 6104045506) 368 mg/dL 167-453 Lab Interpretation (test code = Normal 29891-8) [facility]2023-04-16 15:15:42 Test Item Value Reference Range Interpretation Comments Fibrinogen (test code = 3235546410) 368 mg/dL 167-453 Lab Interpretation (test code = Normal 82043-0) [facility]2023-04-16 15:15:42 Test Item Value Reference Range Interpretation Comments Fibrinogen (test code = 0715261562) 368 mg/dL 167-453 Lab Interpretation (test code = Normal 15434-4) [facility] Test Item Value Reference Range Interpretation Comments Fibrinogen (test code = 9879476615) 368 mg/dL 167-453 Lab Interpretation (test code = Normal 81261-3) [facility] [id number] 15:09:40 Test Item Value Reference Range Interpretation Comments WBC (test code = 8.27 See_Comment [Automated 6690-2) message] The sy stem which generated this result transmitted reference range : 4.20 - 10.70 10*3/?L. The reference range was not used to interpret this result as normal/abnormal . RBC (test code = 4.18 See_Comment L [Automated 789-8) message] The sy stem which generated this result transmitted reference range : 4.26 - 5.52 10*6/?L. The reference range was not used to interpret this result as normal/abnormal . HGB (test code = 12.1 g/dL 12.2-16.4 L 718-7) HCT (test code = 37.0 % 38.4-49.3 L 4544-3) MCV (test code = 88.5 fL 81.7-95.6 787-2) MCH (test code = 28.9 pg 26.1-32.7 785-6) MCHC (test code = 32.7 g/dL 31.2-35.0 786-4) RDW-SD (test code = 47.6 fL 38.5-51.6 94112-9) RDW-CV (test code = 14.7 % 12.1-15.4 788-0) PLT (test code = 252 See_Comment [Automated 777-3) message] The sy stem which generated this result transmitted reference range : 150 - 328 10*3/ ?L. The reference r mitra was not used to interpret this result as normal/abnormal . MPV (test code = 9.1 fL 9.8-13.0 L 02229-0) NRBC/100 WBC (test 0.0 See_Comment [Automat ed code = 0238643469) message] The system which generated this result transmitted reference range : 0.0 - 10.0 /100 WBCs. The refer ence range was not u sed to interpret th is result as normal/abnormal . NRBC x10^3 (test code See_Comment [Auto mated = 4418111434) message] The s ystem which generated this result transmitted reference range : 10*3/?L. The reference range was not used to interpret this result as normal/abnormal . GRAN MAT (NEUT) % 53.7 % (test code = 770-8) IMM GRAN % (test code 1.90 % = 5441566364) LYMPH % (test code = 29.6 % 736-9) MONO % (test code = 8.1 % 5905-5) EOS % (test code = 5.7 % 713-8) BASO % (test code = 1.0 % 706-2) GRAN MAT x10^3(ANC) 4.44 10*3/uL 1.99-6.95 (test code = 9301498225) IMM GRAN x10^3 (test 0.16 10*3/uL 0.00-0.06 H code = 0868853766) LYMPH x10^3 (test code 2.45 10*3/uL 1.09-3.23 = 731-0) MONO x10^3 (test code 0.67 10*3/uL 0.36-1.02 = 742-7) EOS x10^3 (test code = 0.47 10*3/uL 0.06-0.53 711-2) BASO x10^3 (test code 0.08 10*3/uL 0.01-0.09 = 704-7) Lab Interpretation Abnormal (test code = 31055-3) [facility] WITH [id number] 15:09:40 Test Item Value Reference Range Interpretation Comments WBC (test code = 8.27 See_Comment [Automated 8990-2) message] The sy stem which generated this result transmitted reference range : 4.20 - 10.70 10*3/?L. The reference range was not used to interpret this result as normal/abnormal . RBC (test code = 4.18 See_Comment L [Automated 639-8) message] The sy stem which generated this result transmitted reference range : 4.26 - 5.52 10*6/?L. The reference range was not used to interpret this result as normal/abnormal . HGB (test code = 12.1 g/dL 12.2-16.4 L 718-7) HCT (test code = 37.0 % 38.4-49.3 L 4544-3) MCV (test code = 88.5 fL 81.7-95.6 787-2) MCH (test code = 28.9 pg 26.1-32.7 785-6) MCHC (test code = 32.7 g/dL 31.2-35.0 786-4) RDW-SD (test code = 47.6 fL 38.5-51.6 28223-7) RDW-CV (test code = 14.7 % 12.1-15.4 788-0) PLT (test code = 252 See_Comment [Automated 777-3) message] The sy stem which generated this result transmitted reference range : 150 - 328 10*3/ ?L. The reference r mitra was not used to interpret this result as normal/abnormal . MPV (test code = 9.1 fL 9.8-13.0 L 20144-8) NRBC/100 WBC (test 0.0 See_Comment [Automat ed code = 6748326531) message] The system which generated this result transmitted reference range : 0.0 - 10.0 /100 WBCs. The refer ence range was not u sed to interpret th is result as normal/abnormal . NRBC x10^3 (test code See_Comment [Auto mated = 1507583291) message] The s ystem which generated this result transmitted reference range : 10*3/?L. The reference range was not used to interpret this result as normal/abnormal . GRAN MAT (NEUT) % 53.7 % (test code = 770-8) IMM GRAN % (test code 1.90 % = 0454782144) LYMPH % (test code = 29.6 % 736-9) MONO % (test code = 8.1 % 5905-5) EOS % (test code = 5.7 % 713-8) BASO % (test code = 1.0 % 706-2) GRAN MAT x10^3(ANC) 4.44 10*3/uL 1.99-6.95 (test code = 3258954590) IMM GRAN x10^3 (test 0.16 10*3/uL 0.00-0.06 H code = 2193156618) LYMPH x10^3 (test code 2.45 10*3/uL 1.09-3.23 = 731-0) MONO x10^3 (test code 0.67 10*3/uL 0.36-1.02 = 742-7) EOS x10^3 (test code = 0.47 10*3/uL 0.06-0.53 711-2) BASO x10^3 (test code 0.08 10*3/uL 0.01-0.09 = 704-7) Lab Interpretation Abnormal (test code = 86276-3) [facility] WITH [id number] 15:09:40 Test Item Value Reference Range Interpretation Comments WBC (test code = 8.27 See_Comment [Automated 6190-2) message] The sy stem which generated this result transmitted reference range : 4.20 - 10.70 10*3/?L. The reference range was not used to interpret this result as normal/abnormal . RBC (test code = 4.18 See_Comment L [Automated 109-8) message] The sy stem which generated this result transmitted reference range : 4.26 - 5.52 10*6/?L. The reference range was not used to interpret this result as normal/abnormal . HGB (test code = 12.1 g/dL 12.2-16.4 L 718-7) HCT (test code = 37.0 % 38.4-49.3 L 4544-3) MCV (test code = 88.5 fL 81.7-95.6 787-2) MCH (test code = 28.9 pg 26.1-32.7 785-6) MCHC (test code = 32.7 g/dL 31.2-35.0 786-4) RDW-SD (test code = 47.6 fL 38.5-51.6 17473-3) RDW-CV (test code = 14.7 % 12.1-15.4 788-0) PLT (test code = 252 See_Comment [Automated 777-3) message] The sy stem which generated this result transmitted reference range : 150 - 328 10*3/ ?L. The reference r mitra was not used to interpret this result as normal/abnormal . MPV (test code = 9.1 fL 9.8-13.0 L 27731-0) NRBC/100 WBC (test 0.0 See_Comment [Automat ed code = 6798212717) message] The system which generated this result transmitted reference range : 0.0 - 10.0 /100 WBCs. The refer ence range was not u sed to interpret th is result as normal/abnormal . NRBC x10^3 (test code See_Comment [Auto mated = 3235435052) message] The s ystem which generated this result transmitted reference range : 10*3/?L. The reference range was not used to interpret this result as normal/abnormal . GRAN MAT (NEUT) % 53.7 % (test code = 770-8) IMM GRAN % (test code 1.90 % = 2967362427) LYMPH % (test code = 29.6 % 736-9) MONO % (test code = 8.1 % 5905-5) EOS % (test code = 5.7 % 713-8) BASO % (test code = 1.0 % 706-2) GRAN MAT x10^3(ANC) 4.44 10*3/uL 1.99-6.95 (test code = 6318827593) IMM GRAN x10^3 (test 0.16 10*3/uL 0.00-0.06 H code = 0470502078) LYMPH x10^3 (test code 2.45 10*3/uL 1.09-3.23 = 731-0) MONO x10^3 (test code 0.67 10*3/uL 0.36-1.02 = 742-7) EOS x10^3 (test code = 0.47 10*3/uL 0.06-0.53 711-2) BASO x10^3 (test code 0.08 10*3/uL 0.01-0.09 = 704-7) Lab Interpretation Abnormal (test code = 78206-4) [facility] WITH [id number] 15:09:40 Test Item Value Reference Range Interpretation Comments WBC (test code = 8.27 See_Comment [Automated 6690-2) message] The sy stem which generated this result transmitted reference range : 4.20 - 10.70 10*3/?L. The reference range was not used to interpret this result as normal/abnormal . RBC (test code = 4.18 See_Comment L [Automated 789-8) message] The sy stem which generated this result transmitted reference range : 4.26 - 5.52 10*6/?L. The reference range was not used to interpret this result as normal/abnormal . HGB (test code = 12.1 g/dL 12.2-16.4 L 718-7) HCT (test code = 37.0 % 38.4-49.3 L 4544-3) MCV (test code = 88.5 fL 81.7-95.6 787-2) MCH (test code = 28.9 pg 26.1-32.7 785-6) MCHC (test code = 32.7 g/dL 31.2-35.0 786-4) RDW-SD (test code = 47.6 fL 38.5-51.6 57290-8) RDW-CV (test code = 14.7 % 12.1-15.4 788-0) PLT (test code = 252 See_Comment [Automated 777-3) message] The sy stem which generated this result transmitted reference range : 150 - 328 10*3/ ?L. The reference r mitra was not used to interpret this result as normal/abnormal . MPV (test code = 9.1 fL 9.8-13.0 L 04889-4) NRBC/100 WBC (test 0.0 See_Comment [Automat ed code = 7562366410) message] The system which generated this result transmitted reference range : 0.0 - 10.0 /100 WBCs. The refer ence range was not u sed to interpret th is result as normal/abnormal . NRBC x10^3 (test code See_Comment [Auto mated = 8596796853) message] The s ystem which generated this result transmitted reference range : 10*3/?L. The reference range was not used to interpret this result as normal/abnormal . GRAN MAT (NEUT) % 53.7 % (test code = 770-8) IMM GRAN % (test code 1.90 % = 4088500929) LYMPH % (test code = 29.6 % 736-9) MONO % (test code = 8.1 % 5905-5) EOS % (test code = 5.7 % 713-8) BASO % (test code = 1.0 % 706-2) GRAN MAT x10^3(ANC) 4.44 10*3/uL 1.99-6.95 (test code = 1522190927) IMM GRAN x10^3 (test 0.16 10*3/uL 0.00-0.06 H code = 5652215191) LYMPH x10^3 (test code 2.45 10*3/uL 1.09-3.23 = 731-0) MONO x10^3 (test code 0.67 10*3/uL 0.36-1.02 = 742-7) EOS x10^3 (test code = 0.47 10*3/uL 0.06-0.53 711-2) BASO x10^3 (test code 0.08 10*3/uL 0.01-0.09 = 704-7) Lab Interpretation Abnormal (test code = 89786-5) [facility] (for use with Heparin Infusion)2022-05-29 11:36:15 Test Item Value Reference Range Interpretation Comments APTT Patient (test code 52 See_Comment H [Au tomated message] = 3173-2) The system [employer] generated this result transmitted ref erence range: 26 - 36 Seconds. The reference range was not used to int erpret this result as normal/abnormal . Lab Interpretation (test Abnormal code = 95185-3) [facility] (for use with Heparin Infusion)2022-05-29 11:36:15 Test Item Value Reference Range Interpretation Comments APTT Patient (test code 52 See_Comment H [Au tomated message] = 3173-2) The system [employer] generated this result transmitted ref erence range: 26 - 36 Seconds. The reference range was not used to int erpret this result as normal/abnormal . Lab Interpretation (test Abnormal code = 63143-5) [facility] (for use with Heparin Infusion)2022-05-29 11:36:15 Test Item Value Reference Range Interpretation Comments APTT Patient (test code 52 See_Comment H [Au tomated message] = 3173-2) The system [employer] generated this result transmitted ref erence range: 26 - 36 Seconds. The reference range was not used to int erpret this result as normal/abnormal . Lab Interpretation (test Abnormal code = 66968-5) [facility] 11:36:15 Test Item Value Reference Range Interpretation Comments APTT Patient (test code 52 See_Comment H [Au tomated message] = 3173-2) The system [employer] generated this result transmitted ref erence range: 26 - 36 Seconds. The reference range was not used to int erpret this result as normal/abnormal . Lab Interpretation (test Abnormal code = 26017-9) [facility] METABOLIC PANEL (NA, K, CL, CO2, GLUCOSE, BUN, CREATININE, CA)2022-05-29 11:35:55 Test Item Value Reference Range Interpretation Comments NA (test code = 136 mmol/L 135-145 4267509138) K (test code = 4.9 mmol/L 3.5-5.0 Slight 0084150440) hemolysis CL (test code = 106 mmol/L 98-108 6150840253) CO2 TOTAL (test code 28 mmol/L 23-31 = 0297023378) AGAP (test code = 2 2-16 9949013144) BUN (test code = 26 mg/dL 7-23 H Slight 7705001033) hemolysis GLUCOSE (test code = 88 mg/dL 70-110 0878824431) CREATININE (test code 0.86 mg/dL 0.60-1.25 = 6047305591) CALCIUM (test code = 8.4 mg/dL 8.6-10.6 L 6046147772) eGFR (test code = 91.0 mL/min/1.73m2 3253197583) DEWAYNE (test code = DEWAYNE) Association of Glomerular Filtration Rate (GFR) and Staging of Kidney Disease* + -----+ --------+ +| GFR (mL/min/1.73 m2) ?| With Kidney Damage ?| ?Without Kidney Damage+ +------- +---- --+| ?>90 ?| ?Stage one ?| ? Normal ?+ ------+ ---------+--------- +| ?60-89 ?| ?Stage two ?| ? Decreased GFR ? + -----+ --------+ +| ?30-59 ?| ?Stage three ?| ? Stage three ? + -----+ --------+ +| ?15-29 ?| ?Stage four ? | ? Stage four ?+ ------+ ---------+--------- +| ?<15 (or dialysis) ? ?| ?Stage five ? | ? Stage five ?+ ------+ ---------+--------- + *Each stage assumes the associated GFR level has been in effect for at least three months. ?Stages 1 to 5, with or without kidney disease, indicate chronic kidney disease. Notes: Determination of stages one and two (with eGFR >59mL/min/1.73 m2) requires estimation of kidney damage for at least three months as defined by structural or functional abnormalities of the kidney, manifested by either:Pathological abnormalities or Markers of kidney damage (including abnormalities in the composition of the blood or urine or abnormalities in imaging tests). Lab Interpretation Abnormal (test code = 58824-6) [facility] Test Item Value Reference Range Interpretation Comments MAGNESIUM (test code = 6931532411) 2.4 mg/dL 1.7-2.4 Lab Interpretation (test code = Normal 66193-7) [facility] (NA, K, CL, CO2, GLUCOSE, BUN, CREATININE, CA)2022-05-29 11:35:55 Test Item Value Reference Range Interpretation Comments NA (test code = 136 mmol/L 135-145 8520044266) K (test code = 4.9 mmol/L 3.5-5.0 Slight 5066701479) hemolysis CL (test code = 106 mmol/L 98-108 9758181665) CO2 TOTAL (test code 28 mmol/L 23-31 = 2910471171) AGAP (test code = 2 2-16 3301734602) BUN (test code = 26 mg/dL 7-23 H Slight 1298825453) hemolysis GLUCOSE (test code = 88 mg/dL 70-110 9842777814) CREATININE (test code 0.86 mg/dL 0.60-1.25 = 6030795896) CALCIUM (test code = 8.4 mg/dL 8.6-10.6 L 0262962081) eGFR (test code = 91.0 mL/min/1.73m2 5513632537) DEWAYNE (test code = DEWAYNE) Association of Glomerular Filtration Rate (GFR) and Staging of Kidney Disease* + -----+ --------+ +| GFR (mL/min/1.73 m2) ?| With Kidney Damage ?| ?Without Kidney Damage+ +------- +---- --+| ?>90 ?| ?Stage one ?| ? Normal ?+ ------+ ---------+--------- +| ?60-89 ?| ?Stage two ?| ? Decreased GFR ? + -----+ --------+ +| ?30-59 ?| ?Stage three ?| ? Stage three ? + -----+ --------+ +| ?15-29 ?| ?Stage four ? | ? Stage four ?+ ------+ ---------+--------- +| ?<15 (or dialysis) ? ?| ?Stage five ? | ? Stage five ?+ ------+ ---------+--------- + *Each stage assumes the associated GFR level has been in effect for at least three months. ?Stages 1 to 5, with or without kidney disease, indicate chronic kidney disease. Notes: Determination of stages one and two (with eGFR >59mL/min/1.73 m2) requires estimation of kidney damage for at least three months as defined by structural or functional abnormalities of the kidney, manifested by either:Pathological abnormalities or Markers of kidney damage (including abnormalities in the composition of the blood or urine or abnormalities in imaging tests). Lab Interpretation Abnormal (test code = 91377-1) [facility]35:55 Test Item Value Reference Range Interpretation Comments MAGNESIUM (test code = 8058491095) 2.4 mg/dL 1.7-2.4 Lab Interpretation (test code = Normal 53223-1) [facility] (NA, K, CL, CO2, GLUCOSE, BUN, CREATININE, CA)2022-05-29 11:35:55 Test Item Value Reference Range Interpretation Comments NA (test code = 136 mmol/L 135-145 2242080798) K (test code = 4.9 mmol/L 3.5-5.0 Slight 6344443506) hemolysis CL (test code = 106 mmol/L 98-108 0866812654) CO2 TOTAL (test code 28 mmol/L 23-31 = 5390351426) AGAP (test code = 2 2-16 6793531616) BUN (test code = 26 mg/dL 7-23 H Slight 1840862922) hemolysis GLUCOSE (test code = 88 mg/dL 70-110 2345554579) CREATININE (test code 0.86 mg/dL 0.60-1.25 = 8596055770) CALCIUM (test code = 8.4 mg/dL 8.6-10.6 L 2871004789) eGFR (test code = 91.0 mL/min/1.73m2 6841009040) DEWAYNE (test code = DEWAYNE) Association of Glomerular Filtration Rate (GFR) and Staging of Kidney Disease* + -----+ --------+ +| GFR (mL/min/1.73 m2) ?| With Kidney Damage ?| ?Without Kidney Damage+ +------- +---- --+| ?>90 ?| ?Stage one ?| ? Normal ?+ ------+ ---------+--------- +| ?60-89 ?| ?Stage two ?| ? Decreased GFR ? + -----+ --------+ +| ?30-59 ?| ?Stage three ?| ? Stage three ? + -----+ --------+ +| ?15-29 ?| ?Stage four ? | ? Stage four ?+ ------+ ---------+--------- +| ?<15 (or dialysis) ? ?| ?Stage five ? | ? Stage five ?+ ------+ ---------+--------- + *Each stage assumes the associated GFR level has been in effect for at least three months. ?Stages 1 to 5, with or without kidney disease, indicate chronic kidney disease. Notes: Determination of stages one and two (with eGFR >59mL/min/1.73 m2) requires estimation of kidney damage for at least three months as defined by structural or functional abnormalities of the kidney, manifested by either:Pathological abnormalities or Markers of kidney damage (including abnormalities in the composition of the blood or urine or abnormalities in imaging tests). Lab Interpretation Abnormal (test code = 12198-3) [facility] 11:35:55 Test Item Value Reference Range Interpretation Comments MAGNESIUM (test code = 7413787467) 2.4 mg/dL 1.7-2.4 Lab Interpretation (test code = Normal 12696-9) [facility] (NA, K, CL, CO2, GLUCOSE, BUN, CREATININE, CA)2022-05-29 11:35:55 Test Item Value Reference Range Interpretation Comments NA (test code = 136 mmol/L 135-145 1382602823) K (test code = 4.9 mmol/L 3.5-5.0 Slight 8660516785) hemolysis CL (test code = 106 mmol/L 98-108 3684878151) CO2 TOTAL (test code 28 mmol/L 23-31 = 9893230026) AGAP (test code = 2 2-16 2472652281) BUN (test code = 26 mg/dL 7-23 H Slight 3746390527) hemolysis GLUCOSE (test code = 88 mg/dL 70-110 1152871220) CREATININE (test code 0.86 mg/dL 0.60-1.25 = 6579243338) CALCIUM (test code = 8.4 mg/dL 8.6-10.6 L 0542683955) eGFR (test code = 91.0 mL/min/1.73m2 1803769033) DEWAYNE (test code = DEWAYNE) Association of Glomerular Filtration Rate (GFR) and Staging of Kidney Disease* + -----+ --------+ +| GFR (mL/min/1.73 m2) ?| With Kidney Damage ?| ?Without Kidney Damage+ +------- +---- --+| ?>90 ?| ?Stage one ?| ? Normal ?+ ------+ ---------+--------- +| ?60-89 ?| ?Stage two ?| ? Decreased GFR ? + -----+ --------+ +| ?30-59 ?| ?Stage three ?| ? Stage three ? + -----+ --------+ +| ?15-29 ?| ?Stage four ? | ? Stage four ?+ ------+ ---------+--------- +| ?<15 (or dialysis) ? ?| ?Stage five ? | ? Stage five ?+ ------+ ---------+--------- + *Each stage assumes the associated GFR level has been in effect for at least three months. ?Stages 1 to 5, with or without kidney disease, indicate chronic kidney disease. Notes: Determination of stages one and two (with eGFR >59mL/min/1.73 m2) requires estimation of kidney damage for at least three months as defined by structural or functional abnormalities of the kidney, manifested by either:Pathological abnormalities or Markers of kidney damage (including abnormalities in the composition of the blood or urine or abnormalities in imaging tests). Lab Interpretation Abnormal (test code = 70162-4) [facility] 11:35:55 Test Item Value Reference Range Interpretation Comments MAGNESIUM (test code = 6978701184) 2.4 mg/dL 1.7-2.4 Lab Interpretation (test code = Normal 90429-3) [facility] [id number] 11:28:31 Test Item Value Reference Range Interpretation Comments WBC (test code = 6690-2) 7.81 See_Comment [A utomated message] The system [employer] generated this result transmit elizabeth reference range : 4.20 - 10.70 10*3/?L. The reference range was not used to interpret this result as normal/abnormal . RBC (test code = 789-8) 4.04 See_Comment L [Au tomated message] The system [employer] generated this result transmit elizabeth reference range : 4.26 - 5.52 10* 6/?L. The reference r mitra was not used to interpret this result as normal/abnormal . HGB (test code = 718-7) 11.6 g/dL 12.2-16.4 L HCT (test code = 4544-3) 35.0 % 38.4-49.3 L MCH (test code = 785-6) 28.7 pg 26.1-32.7 MCV (test code = 787-2) 86.6 fL 81.7-95.6 MCHC (test code = 786-4) 33.1 g/dL 31.2-35.0 PLT (test code = 777-3) 252 See_Comment [Au tomated message] The system [employer] generated this result transmit elizabeth reference range : 150 - 328 10*3/?L. The reference range was not used to interpret this result as normal/abnormal . MPV (test code = 9.6 fL 9.8-13.0 L 49826-8) RDW-CV (test code = 14.6 % 12.1-15.4 788-0) RDW-SD (test code = 46.5 fL 38.5-51.6 59429-0) NRBC x10^3 (test code = See_Comment [Au tomated message] 5785245447) The system [employer] generated this result transmit elizabeth reference range : 10*3/?L. The reference range was not used to interpret this result as normal/abnormal . NRBC/100 WBC (test code 0.0 See_Comment [Au tomated message] = 0199321626) The system [facility] generated this result transmit elizabeth reference range : 0.0 - 10.0 /100 WBC s. The reference r mitra was not used to interpret this result as normal/abnormal . IPF % (test code = 0411685958) Lab Interpretation (test Abnormal code = 56244-5) [facility] Without [id number] 11:28:31 Test Item Value Reference Range Interpretation Comments WBC (test code = 6690-2) 7.81 See_Comment [A utomated message] The system [employer] generated this result transmit elizabeth reference range : 4.20 - 10.70 10*3/?L. The reference range was not used to interpret this result as normal/abnormal . RBC (test code = 789-8) 4.04 See_Comment L [Au tomated message] The system [facility] [employer] generated this result transmit elizabeth reference range : 4.26 - 5.52 10* 6/?L. The reference r mitra was not used to interpret this result as normal/abnormal . HGB (test code = 718-7) 11.6 g/dL 12.2-16.4 L HCT (test code = 4544-3) 35.0 % 38.4-49.3 L MCH (test code = 785-6) 28.7 pg 26.1-32.7 MCV (test code = 787-2) 86.6 fL 81.7-95.6 MCHC (test code = 786-4) 33.1 g/dL 31.2-35.0 PLT (test code = 777-3) 252 See_Comment [Au tomated message] The system [employer] generated this result transmit elizabeth reference range : 150 - 328 10*3/?L. The reference range was not used to interpret this result as normal/abnormal . MPV (test code = 9.6 fL 9.8-13.0 L 81788-4) RDW-CV (test code = 14.6 % 12.1-15.4 788-0) RDW-SD (test code = 46.5 fL 38.5-51.6 68025-3) NRBC x10^3 (test code = See_Comment [Au tomated message] 7066041708) The system [employer] generated this result transmit elizabeth reference range : 10*3/?L. The reference range was not used to interpret this result as normal/abnormal . NRBC/100 WBC (test code 0.0 See_Comment [Au tomated message] = 0210666132) The system [facility] generated this result transmit elizabeth reference range : 0.0 - 10.0 /100 WBC s. The reference r mitra was not used to interpret this result as normal/abnormal . IPF % (test code = 3044873419) Lab Interpretation (test Abnormal code = 82546-8) [facility] Without [id number] 11:28:31 Test Item Value Reference Range Interpretation Comments WBC (test code = 6690-2) 7.81 See_Comment [A utomated message] The system [employer] generated this result transmit elizabeth reference range : 4.20 - 10.70 10*3/?L. The reference range was not used to interpret this result as normal/abnormal . RBC (test code = 789-8) 4.04 See_Comment L [Au tomated message] The system [employer] generated this result transmit elizabeth reference range : 4.26 - 5.52 10* 6/?L. The reference r mitra was not used to interpret this result as normal/abnormal . HGB (test code = 718-7) 11.6 g/dL 12.2-16.4 L HCT (test code = 4544-3) 35.0 % 38.4-49.3 L MCH (test code = 785-6) 28.7 pg 26.1-32.7 MCV (test code = 787-2) 86.6 fL 81.7-95.6 MCHC (test code = 786-4) 33.1 g/dL 31.2-35.0 PLT (test code = 777-3) 252 See_Comment [Au tomated message] The system [employer] generated this result transmit elizabeth reference range : 150 - 328 10*3/?L. The reference range was not used to interpret this result as normal/abnormal . MPV (test code = 9.6 fL 9.8-13.0 L 58286-4) RDW-CV (test code = 14.6 % 12.1-15.4 788-0) RDW-SD (test code = 46.5 fL 38.5-51.6 29584-1) NRBC x10^3 (test code = See_Comment [Au tomated message] 3557430809) The system [employer] generated this result transmit elizabeth reference range : 10*3/?L. The reference range was not used to interpret this result as normal/abnormal . NRBC/100 WBC (test code 0.0 See_Comment [Au tomated message] = 0072591804) The system [facility] generated this result transmit elizabeth reference range : 0.0 - 10.0 /100 WBC s. The reference r mitra was not used to interpret this result as normal/abnormal . IPF % (test code = 6939116920) Lab Interpretation (test Abnormal code = 48675-3) [facility] Without [id number] 11:28:31 Test Item Value Reference Range Interpretation Comments WBC (test code = 6690-2) 7.81 See_Comment [A utomated message] The system [facility] generated this result transmit elizabeth reference range : 4.20 - 10.70 10*3/?L. The reference range was not used to interpret this result as normal/abnormal . RBC (test code = 789-8) 4.04 See_Comment L [Au tomated message] The system [facility] generated this result transmit elizabeth reference range : 4.26 - 5.52 10* 6/?L. The reference r mitra was not used to interpret this result as normal/abnormal . HGB (test code = 718-7) 11.6 g/dL 12.2-16.4 L HCT (test code = 4544-3) 35.0 % 38.4-49.3 L MCH (test code = 785-6) 28.7 pg 26.1-32.7 MCV (test code = 787-2) 86.6 fL 81.7-95.6 MCHC (test code = 786-4) 33.1 g/dL 31.2-35.0 PLT (test code = 777-3) 252 See_Comment [Au tomated message] The system [employer] generated this result transmit elizabeth reference range : 150 - 328 10*3/?L. The reference range was not used to interpret this result as normal/abnormal . MPV (test code = 9.6 fL 9.8-13.0 L 38584-3) RDW-CV (test code = 14.6 % 12.1-15.4 788-0) RDW-SD (test code = 46.5 fL 38.5-51.6 88590-5) NRBC x10^3 (test code = See_Comment [Au tomated message] 0411039096) The system [employer] generated this result transmit elizabeth reference range : 10*3/?L. The reference range was not used to interpret this result as normal/abnormal . NRBC/100 WBC (test code 0.0 See_Comment [Au tomated message] = 9705733935) The system [employer] generated this result transmit elizabeth reference range : 0.0 - 10.0 /100 WBC s. The reference r mitra was not used to interpret this result as normal/abnormal . 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 Incidence: Approximately 2-5 percent of Caucasians and 0.3 percent of Americans are heterozygous; about 1 in 10,000 individuals are homozygous with two copies of the mutation.Inheritance: Autosomal dominant. Penetrance: The risk of thrombosis is increased 2-4 fold for heterozygotes and further increased for homozygotes. Mutation Tested: F2 c.24681P>A (F24957W). Clinical Sensitivity for Venous Thrombosis: Approximately 10%. Methodology: Polymerase chain reaction and fluorescence monitoring Limitations: The performance of this assay has not been evaluated with samples from pediatric patients. Counseling and informed consent are recommended for genetic testing. 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 Incidence: Between 3 and 8 percent of people with ancestry are heterozygous and about 1 in 5000 individuals are homozygous with two copies of the mutation. The mutation is less common in other population.Inheritance: Autosomal dominant. Penetrance: Lifetime risk of thrombosis is 10 percent for heterozygotes and 80 percent for homozygotes. Mutation Tested: Missense F5 gene mutation R506Q (1691G>A). Note: Standardized nomenclature for the Factor 5 Leiden mutation is c.1601G>A (p.[id number]). Methodology: Polymerase chain reaction and fluorescence monitoring. Limitations: Rare Factor V mutations (U9643Z, N2132L, and Q5053F) and any additional SNPs in the probe binding region may interfere with the target detection and yield an INVALID result. The performance of this assay has not been evaluated with samples from pediatric patients. Counseling and informed consent are recommended for genetic testing. 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 Incidence: Approximately 2-5 percent of Caucasians and 0.3 percent of Americans are heterozygous; about 1 in 10,000 individuals are homozygous with two copies of the mutation.Inheritance: Autosomal dominant. Penetrance: The risk of thrombosis is increased 2-4 fold for heterozygotes and further increased for homozygotes. Mutation Tested: F2 c.58153J>A (A83879O). Clinical Sensitivity for Venous Thrombosis: Approximately 10%. Methodology: Polymerase chain reaction and fluorescence monitoring Limitations: The performance of this assay has not been evaluated with samples from pediatric patients. Counseling and informed consent are recommended for genetic testing. 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 Incidence: Between 3 and 8 percent of people with ancestry are heterozygous and about 1 in 5000 individuals are homozygous with two copies of the mutation. The mutation is less common in other population.Inheritance: Autosomal dominant. Penetrance: Lifetime risk of thrombosis is 10 percent for heterozygotes and 80 percent for homozygotes. Mutation Tested: Missense F5 gene mutation R506Q (1691G>A). Note: Standardized nomenclature for the Factor 5 Leiden mutation is c.1601G>A (p.[id number]). Methodology: Polymerase chain reaction and fluorescence monitoring. Limitations: Rare Factor V mutations (H8054C, D6115R, and O0805C) and any additional SNPs in the probe binding region may interfere with the target detection and yield an INVALID result. The performance of this assay has not been evaluated with samples from pediatric patients. Counseling and informed consent are recommended for genetic testing. 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 Incidence: Approximately 2-5 percent of Caucasians and 0.3 percent of Americans are heterozygous; about 1 in 10,000 individuals are homozygous with two copies of the mutation.Inheritance: Autosomal dominant. Penetrance: The risk of thrombosis is increased 2-4 fold for heterozygotes and further increased for homozygotes. Mutation Tested: F2 c.60596R>A (S25256J). Clinical Sensitivity for Venous Thrombosis: Approximately 10%. Methodology: Polymerase chain reaction and fluorescence monitoring Limitations: The performance of this assay has not been evaluated with samples from pediatric patients. Counseling and informed consent are recommended for genetic testing. 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 Incidence: Between 3 and 8 percent of people with ancestry are heterozygous and about 1 in 5000 individuals are homozygous with two copies of the mutation. The mutation is less common in other population.Inheritance: Autosomal dominant. Penetrance: Lifetime risk of thrombosis is 10 percent for heterozygotes and 80 percent for homozygotes. Mutation Tested: Missense F5 gene mutation R506Q (1691G>A). Note: Standardized nomenclature for the Factor 5 Leiden mutation is c.1601G>A (p.[id number]). Methodology: Polymerase chain reaction and fluorescence monitoring. Limitations: Rare Factor V mutations (B1762A, Z0390L, and S3641J) and any additional SNPs in the probe binding region may interfere with the target detection and yield an INVALID result. The performance of this assay has not been evaluated with samples from pediatric patients. Counseling and informed consent are recommended for genetic testing. 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 Incidence: Approximately 2-5 percent of Caucasians and 0.3 percent of Americans are heterozygous; about 1 in 10,000 individuals are homozygous with two copies of the mutation.Inheritance: Autosomal dominant. Penetrance: The risk of thrombosis is increased 2-4 fold for heterozygotes and further increased for homozygotes. Mutation Tested: F2 c.73886H>A (F32682X). Clinical Sensitivity for Venous Thrombosis: Approximately 10%. Methodology: Polymerase chain reaction and fluorescence monitoring Limitations: The performance of this assay has not been evaluated with samples from pediatric patients. Counseling and informed consent are recommended for genetic testing. 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 Incidence: Between 3 and 8 percent of people with ancestry are heterozygous and about 1 in 5000 individuals are homozygous with two copies of the mutation. The mutation is less common in other population.Inheritance: Autosomal dominant. Penetrance: Lifetime risk of thrombosis is 10 percent for heterozygotes and 80 percent for homozygotes. Mutation Tested: Missense F5 gene mutation R506Q (1691G>A). Note: Standardized nomenclature for the Factor 5 Leiden mutation is c.1601G>A (p.[id number]). Methodology: Polymerase chain reaction and fluorescence monitoring. Limitations: Rare Factor V mutations (K7103Y, H4171U, and H2333S) and any additional SNPs in the probe binding region may interfere with the target detection and yield an INVALID result. The performance of this assay has not been evaluated with samples from pediatric patients. Counseling and informed consent are recommended for genetic testing. References: OMIM: 934303 https://ghr.nlm.nih.gov/co ndition/ueyifk-l-palpvt- rombophilia [facility] (NA, K, CL, CO2, GLUCOSE, BUN, CREATININE, CA)2022-05-28 09:52:42 Test Item Value Reference Range Interpretation Comments NA (test code = 137 mmol/L 135-145 5479951196) K (test code = 3.8 mmol/L 3.5-5.0 8417290830) CL (test code = 103 mmol/L 98-108 3180827897) CO2 TOTAL (test code = 27 mmol/L 23-31 8479635689) AGAP (test code = 7 2-16 3120138996) BUN (test code = 27 mg/dL 7-23 H 0627776059) GLUCOSE (test code = 105 mg/dL 70-110 4598138058) CREATININE (test code = 0.84 mg/dL 0.60-1.25 0602395590) CALCIUM (test code = 8.5 mg/dL 8.6-10.6 L 4297635666) eGFR (test code = 93.5 mL/min/1.73m2 8870312019) DEWAYNE (test code = DEWAYNE) Association of Glomerular Filtration Rate (GFR) and Staging of Kidney Disease* + --+ --+ ------+| GFR (mL/min/1.73 m2) ?| With Kidney Damage ?| ?Without Kidney Damage+ --------+ --------+ +| ?>90 ?| ?Stage one ?| ? Normal ?+ ---+ ---+ -------+| ?60-89 ?| ?Stage two ?| ? Decreased GFR ? + --+ --+ ------+| ?30-59 ?| ?Stage three ?| ? Stage three ? + --+ --+ ------+| ?15-29 ?| ?Stage four ? | ? Stage four ?+ ---+ ---+ -------+| ?<15 (or dialysis) ? ?| ?Stage five ? | ? Stage five ?+ ---+ ---+ -------+ *Each stage assumes the associated GFR level has been in effect for at least three months. ?Stages 1 to 5, with or without kidney disease, indicate chronic kidney disease. Notes: Determination of stages one and two (with eGFR >59mL/min/1.73 m2) requires estimation of kidney damage for at least three months as defined by structural or functional abnormalities of the kidney, manifested by either:Pathological abnormalities or Markers of kidney damage (including abnormalities in the composition of the blood or urine or abnormalities in imaging tests). Lab Interpretation Abnormal (test code = 20574-7) [facility] METABOLIC PANEL (NA, K, CL, CO2, GLUCOSE, BUN, CREATININE, CA)2022-05-28 09:52:42 Test Item Value Reference Range Interpretation Comments NA (test code = 137 mmol/L 135-145 3424050385) K (test code = 3.8 mmol/L 3.5-5.0 9713685242) CL (test code = 103 mmol/L 98-108 7201885788) CO2 TOTAL (test code = 27 mmol/L 23-31 6654222286) AGAP (test code = 7 2-16 4105174288) BUN (test code = 27 mg/dL 7-23 H 0796932113) GLUCOSE (test code = 105 mg/dL 70-110 8645565968) CREATININE (test code = 0.84 mg/dL 0.60-1.25 5838011701) CALCIUM (test code = 8.5 mg/dL 8.6-10.6 L 8183174086) eGFR (test code = 93.5 mL/min/1.73m2 4746722887) DEWAYNE (test code = DEWAYNE) Association of Glomerular Filtration Rate (GFR) and Staging of Kidney Disease* + --+ --+ ------+| GFR (mL/min/1.73 m2) ?| With Kidney Damage ?| ?Without Kidney Damage+ --------+ --------+ +| ?>90 ?| ?Stage one ?| ? Normal ?+ ---+ ---+ -------+| ?60-89 ?| ?Stage two ?| ? Decreased GFR ? + --+ --+ ------+| ?30-59 ?| ?Stage three ?| ? Stage three ? + --+ --+ ------+| ?15-29 ?| ?Stage four ? | ? Stage four ?+ ---+ ---+ -------+| ?<15 (or dialysis) ? ?| ?Stage five ? | ? Stage five ?+ ---+ ---+ -------+ *Each stage assumes the associated GFR level has been in effect for at least three months. ?Stages 1 to 5, with or without kidney disease, indicate chronic kidney disease. Notes: Determination of stages one and two (with eGFR >59mL/min/1.73 m2) requires estimation of kidney damage for at least three months as defined by structural or functional abnormalities of the kidney, manifested by either:Pathological abnormalities or Markers of kidney damage (including abnormalities in the composition of the blood or urine or abnormalities in imaging tests). Lab Interpretation Abnormal (test code = 27579-0) [facility] METABOLIC PANEL (NA, K, CL, CO2, GLUCOSE, BUN, CREATININE, CA)2022-05-28 09:52:42 Test Item Value Reference Range Interpretation Comments NA (test code = 137 mmol/L 135-145 6927808384) K (test code = 3.8 mmol/L 3.5-5.0 1746883228) CL (test code = 103 mmol/L 98-108 1568666242) CO2 TOTAL (test code = 27 mmol/L 23-31 5024824373) AGAP (test code = 7 2-16 1217810582) BUN (test code = 27 mg/dL 7-23 H 2798752278) GLUCOSE (test code = 105 mg/dL 70-110 2913724037) CREATININE (test code = 0.84 mg/dL 0.60-1.25 5197835190) CALCIUM (test code = 8.5 mg/dL 8.6-10.6 L 1230088534) eGFR (test code = 93.5 mL/min/1.73m2 6144133200) DEWAYNE (test code = DEWAYNE) Association of Glomerular Filtration Rate (GFR) and Staging of Kidney Disease* + --+ --+ ------+| GFR (mL/min/1.73 m2) ?| With Kidney Damage ?| ?Without Kidney Damage+ --------+ --------+ +| ?>90 ?| ?Stage one ?| ? Normal ?+ ---+ ---+ -------+| ?60-89 ?| ?Stage two ?| ? Decreased GFR ? + --+ --+ ------+| ?30-59 ?| ?Stage three ?| ? Stage three ? + --+ --+ ------+| ?15-29 ?| ?Stage four ? | ? Stage four ?+ ---+ ---+ -------+| ?<15 (or dialysis) ? ?| ?Stage five ? | ? Stage five ?+ ---+ ---+ -------+ *Each stage assumes the associated GFR level has been in effect for at least three months. ?Stages 1 to 5, with or without kidney disease, indicate chronic kidney disease. Notes: Determination of stages one and two (with eGFR >59mL/min/1.73 m2) requires estimation of kidney damage for at least three months as defined by structural or functional abnormalities of the kidney, manifested by either:Pathological abnormalities or Markers of kidney damage (including abnormalities in the composition of the blood or urine or abnormalities in imaging tests). Lab Interpretation Abnormal (test code = 60818-8) [facility] METABOLIC PANEL (NA, K, CL, CO2, GLUCOSE, BUN, CREATININE, CA)2022-05-28 09:52:42 Test Item Value Reference Range Interpretation Comments NA (test code = 137 mmol/L 135-145 6680646477) K (test code = 3.8 mmol/L 3.5-5.0 7106405415) CL (test code = 103 mmol/L 98-108 4134326507) CO2 TOTAL (test code = 27 mmol/L 23-31 7903410147) AGAP (test code = 7 2-16 7821630860) BUN (test code = 27 mg/dL 7-23 H 8673178212) GLUCOSE (test code = 105 mg/dL 70-110 5412113614) CREATININE (test code = 0.84 mg/dL 0.60-1.25 8892222360) CALCIUM (test code = 8.5 mg/dL 8.6-10.6 L 9590811553) eGFR (test code = 93.5 mL/min/1.73m2 8929502188) DEWAYNE (test code = DEWAYNE) Association of Glomerular Filtration Rate (GFR) and Staging of Kidney Disease* + --+ --+ ------+| GFR (mL/min/1.73 m2) ?| With Kidney Damage ?| ?Without Kidney Damage+ --------+ --------+ +| ?>90 ?| ?Stage one ?| ? Normal ?+ ---+ ---+ -------+| ?60-89 ?| ?Stage two ?| ? Decreased GFR ? + --+ --+ ------+| ?30-59 ?| ?Stage three ?| ? Stage three ? + --+ --+ ------+| ?15-29 ?| ?Stage four ? | ? Stage four ?+ ---+ ---+ -------+| ?<15 (or dialysis) ? ?| ?Stage five ? | ? Stage five ?+ ---+ ---+ -------+ *Each stage assumes the associated GFR level has been in effect for at least three months. ?Stages 1 to 5, with or without kidney disease, indicate chronic kidney disease. Notes: Determination of stages one and two (with eGFR >59mL/min/1.73 m2) requires estimation of kidney damage for at least three months as defined by structural or functional abnormalities of the kidney, manifested by either:Pathological abnormalities or Markers of kidney damage (including abnormalities in the composition of the blood or urine or abnormalities in imaging tests). Lab Interpretation Abnormal (test code = 54764-2) [facility] WITH [id number] 09:29:20 Test Item Value Reference Range Interpretation Comments WBC (test code = 8.34 See_Comment [Automated 7556-2) message] The sy stem which generated this result transmitted reference range : 4.20 - 10.70 10*3/?L. The reference range was not used to interpret this result as normal/abnormal . RBC (test code = 4.08 See_Comment L [Automated 640-8) message] The sy stem which generated this result transmitted reference range : 4.26 - 5.52 10*6/?L. The reference range was not used to interpret this result as normal/abnormal . HGB (test code = 11.6 g/dL 12.2-16.4 L 718-7) HCT (test code = 34.9 % 38.4-49.3 L 4544-3) MCV (test code = 85.5 fL 81.7-95.6 787-2) MCH (test code = 28.4 pg 26.1-32.7 785-6) MCHC (test code = 33.2 g/dL 31.2-35.0 786-4) RDW-SD (test code = 44.7 fL 38.5-51.6 55950-8) RDW-CV (test code = 14.5 % 12.1-15.4 788-0) PLT (test code = 199 See_Comment [Automated 777-3) message] The sy stem which generated this result transmitted reference range : 150 - 328 10*3/ ?L. The reference r mitra was not used to interpret this result as normal/abnormal . MPV (test code = 9.3 fL 9.8-13.0 L 99078-9) NRBC/100 WBC (test 0.0 See_Comment [Automat ed code = 2725338876) message] The system which generated this result transmitted reference range : 0.0 - 10.0 /100 WBCs. The refer ence range was not u sed to interpret th is result as normal/abnormal . NRBC x10^3 (test code See_Comment [Auto mated = 3457508962) message] The s ystem which generated this result transmitted reference range : 10*3/?L. The reference range was not used to interpret this result as normal/abnormal . GRAN MAT (NEUT) % 56.1 % (test code = 770-8) IMM GRAN % (test code 1.20 % = 6270042097) LYMPH % (test code = 30.8 % 736-9) MONO % (test code = 7.6 % 5905-5) EOS % (test code = 3.7 % 713-8) BASO % (test code = 0.6 % 706-2) GRAN MAT x10^3(ANC) 4.68 10*3/uL 1.99-6.95 (test code = 1075103511) IMM GRAN x10^3 (test 0.10 10*3/uL 0.00-0.06 H code = 8050505927) LYMPH x10^3 (test code 2.57 10*3/uL 1.09-3.23 = 731-0) MONO x10^3 (test code 0.63 10*3/uL 0.36-1.02 = 742-7) EOS x10^3 (test code = 0.31 10*3/uL 0.06-0.53 711-2) BASO x10^3 (test code 0.05 10*3/uL 0.01-0.09 = 704-7) Lab Interpretation Abnormal (test code = 27152-5) [facility] WITH [id number] 09:29:20 Test Item Value Reference Range Interpretation Comments WBC (test code = 8.34 See_Comment [Automated 6690-2) message] The sy stem which generated this result transmitted reference range : 4.20 - 10.70 10*3/?L. The reference range was not used to interpret this result as normal/abnormal . RBC (test code = 4.08 See_Comment L [Automated 789-8) message] The sy stem which generated this result transmitted reference range : 4.26 - 5.52 10*6/?L. The reference range was not used to interpret this result as normal/abnormal . HGB (test code = 11.6 g/dL 12.2-16.4 L 718-7) HCT (test code = 34.9 % 38.4-49.3 L 4544-3) MCV (test code = 85.5 fL 81.7-95.6 787-2) MCH (test code = 28.4 pg 26.1-32.7 785-6) MCHC (test code = 33.2 g/dL 31.2-35.0 786-4) RDW-SD (test code = 44.7 fL 38.5-51.6 01970-3) RDW-CV (test code = 14.5 % 12.1-15.4 788-0) PLT (test code = 199 See_Comment [Automated 777-3) message] The sy stem which generated this result transmitted reference range : 150 - 328 10*3/ ?L. The reference r mitra was not used to interpret this result as normal/abnormal . MPV (test code = 9.3 fL 9.8-13.0 L 78112-4) NRBC/100 WBC (test 0.0 See_Comment [Automat ed code = 5017056821) message] The system which generated this result transmitted reference range : 0.0 - 10.0 /100 WBCs. The refer ence range was not u sed to interpret th is result as normal/abnormal . NRBC x10^3 (test code See_Comment [Auto mated = 4124701469) message] The s ystem which generated this result transmitted reference range : 10*3/?L. The reference range was not used to interpret this result as normal/abnormal . GRAN MAT (NEUT) % 56.1 % (test code = 770-8) IMM GRAN % (test code 1.20 % = 1814656750) LYMPH % (test code = 30.8 % 736-9) MONO % (test code = 7.6 % 5905-5) EOS % (test code = 3.7 % 713-8) BASO % (test code = 0.6 % 706-2) GRAN MAT x10^3(ANC) 4.68 10*3/uL 1.99-6.95 (test code = 5061305565) IMM GRAN x10^3 (test 0.10 10*3/uL 0.00-0.06 H code = 6250506590) LYMPH x10^3 (test code 2.57 10*3/uL 1.09-3.23 = 731-0) MONO x10^3 (test code 0.63 10*3/uL 0.36-1.02 = 742-7) EOS x10^3 (test code = 0.31 10*3/uL 0.06-0.53 711-2) BASO x10^3 (test code 0.05 10*3/uL 0.01-0.09 = 704-7) Lab Interpretation Abnormal (test code = 61782-0) [facility] WITH [id number] 09:29:20 Test Item Value Reference Range Interpretation Comments WBC (test code = 8.34 See_Comment [Automated 6590-2) message] The sy stem which generated this result transmitted reference range : 4.20 - 10.70 10*3/?L. The reference range was not used to interpret this result as normal/abnormal . RBC (test code = 4.08 See_Comment L [Automated -8) message] The sy stem which generated this result transmitted reference range : 4.26 - 5.52 10*6/?L. The reference range was not used to interpret this result as normal/abnormal . HGB (test code = 11.6 g/dL 12.2-16.4 L 718-7) HCT (test code = 34.9 % 38.4-49.3 L 4544-3) MCV (test code = 85.5 fL 81.7-95.6 787-2) MCH (test code = 28.4 pg 26.1-32.7 785-6) MCHC (test code = 33.2 g/dL 31.2-35.0 786-4) RDW-SD (test code = 44.7 fL 38.5-51.6 66676-2) RDW-CV (test code = 14.5 % 12.1-15.4 788-0) PLT (test code = 199 See_Comment [Automated 777-3) message] The sy stem which generated this result transmitted reference range : 150 - 328 10*3/ ?L. The reference r mitra was not used to interpret this result as normal/abnormal . MPV (test code = 9.3 fL 9.8-13.0 L 25176-8) NRBC/100 WBC (test 0.0 See_Comment [Automat ed code = 3630354070) message] The system which generated this result transmitted reference range : 0.0 - 10.0 /100 WBCs. The refer ence range was not u sed to interpret th is result as normal/abnormal . NRBC x10^3 (test code See_Comment [Auto mated = 5576453573) message] The s ystem which generated this result transmitted reference range : 10*3/?L. The reference range was not used to interpret this result as normal/abnormal . GRAN MAT (NEUT) % 56.1 % (test code = 770-8) IMM GRAN % (test code 1.20 % = 2324491980) LYMPH % (test code = 30.8 % 736-9) MONO % (test code = 7.6 % 5905-5) EOS % (test code = 3.7 % 713-8) BASO % (test code = 0.6 % 706-2) GRAN MAT x10^3(ANC) 4.68 10*3/uL 1.99-6.95 (test code = 4542923489) IMM GRAN x10^3 (test 0.10 10*3/uL 0.00-0.06 H code = 3372255843) LYMPH x10^3 (test code 2.57 10*3/uL 1.09-3.23 = 731-0) MONO x10^3 (test code 0.63 10*3/uL 0.36-1.02 = 742-7) EOS x10^3 (test code = 0.31 10*3/uL 0.06-0.53 711-2) BASO x10^3 (test code 0.05 10*3/uL 0.01-0.09 = 704-7) Lab Interpretation Abnormal (test code = 80799-5) [facility] WITH [id number] 09:29:20 Test Item Value Reference Range Interpretation Comments WBC (test code = 8.34 See_Comment [Automated 5390-2) message] The sy stem which generated this result transmitted reference range : 4.20 - 10.70 10*3/?L. The reference range was not used to interpret this result as normal/abnormal . RBC (test code = 4.08 See_Comment L [Automated 739-8) message] The sy stem which generated this result transmitted reference range : 4.26 - 5.52 10*6/?L. The reference range was not used to interpret this result as normal/abnormal . HGB (test code = 11.6 g/dL 12.2-16.4 L 718-7) HCT (test code = 34.9 % 38.4-49.3 L 4544-3) MCV (test code = 85.5 fL 81.7-95.6 787-2) MCH (test code = 28.4 pg 26.1-32.7 785-6) MCHC (test code = 33.2 g/dL 31.2-35.0 786-4) RDW-SD (test code = 44.7 fL 38.5-51.6 11614-2) RDW-CV (test code = 14.5 % 12.1-15.4 788-0) PLT (test code = 199 See_Comment [Automated 447-3) message] The sy stem which generated this result transmitted reference range : 150 - 328 10*3/ ?L. The reference r mitra was not used to interpret this result as normal/abnormal . MPV (test code = 9.3 fL 9.8-13.0 L 33645-5) NRBC/100 WBC (test 0.0 See_Comment [Automat ed code = 7347037090) message] The system which generated this result transmitted reference range : 0.0 - 10.0 /100 WBCs. The refer ence range was not u sed to interpret th is result as normal/abnormal . NRBC x10^3 (test code See_Comment [Auto mated = 6719839771) message] The s ystem which generated this result transmitted reference range : 10*3/?L. The reference range was not used to interpret this result as normal/abnormal . GRAN MAT (NEUT) % 56.1 % (test code = 770-8) IMM GRAN % (test code 1.20 % = 4593792428) LYMPH % (test code = 30.8 % 736-9) MONO % (test code = 7.6 % 5905-5) EOS % (test code = 3.7 % 713-8) BASO % (test code = 0.6 % 706-2) GRAN MAT x10^3(ANC) 4.68 10*3/uL 1.99-6.95 (test code = 0656919166) IMM GRAN x10^3 (test 0.10 10*3/uL 0.00-0.06 H code = 3811093391) LYMPH x10^3 (test code 2.57 10*3/uL 1.09-3.23 = 731-0) MONO x10^3 (test code 0.63 10*3/uL 0.36-1.02 = 742-7) EOS x10^3 (test code = 0.31 10*3/uL 0.06-0.53 711-2) BASO x10^3 (test code 0.05 10*3/uL 0.01-0.09 = 704-7) Lab Interpretation Abnormal (test code = 57794-6) [facility] [id number] [facility]:20:00 Test Item Value Reference Interpretation Comments Range Levetiracetam 4.1 ug/mL 10.0-40.0 A This test was developed and ([facility]), S (test its perfor fritz code = JORGERA.L) characteris ticsdetermined by [facility]. It has not been cleared orappro mannie by the Food and Drug Administration. Performed at: - [facility] [email or web address] [facility], [place], [place] [id number] Di shahid: Miriam Sevilla MD, Ph one: [phone] Drug Screen,[id number] 20:40:00 Test Item Value Reference Range Interpretation Comments PCP Phencyclidine Screen,Urine (test Negative Negative code = PCPU) Amphetamine Screen,Urine (test code Negative Negative = AMPU) Methadone Screen,Urine (test code = Negative Negative METHU) Opiate Screen,Urine (test code = Negative Negative UOPIS) Barbituates Screen,Urine (test code Negative Negative = BARBU) Benzodiazepines Screen,Urine (test Negative Negative code = UBENZS) Cocaine Screen,Urine (test code = Negative Negative UCOCS) Cannabinoid Screen,Urine (test code Negative Negative = UTHCS) Propoxyphene Screen, Urine (test Negative Negative code = UPROP) Comprehensive Metabolic [id number] 19:50:00 Test Item Value Reference Range Interpretation Comments SODIUM (test code = NA) 140.0 mmol/L 136.0-145.0 N Potassium,K (test code = K) 4.7 mmol/L 3.0-5.1 N Chloride (test code = CL) 107 mmol/L 98-107 N Carbon Dioxide (test code = CO2) 26 mmol/L 20-31 N Anion Gap (test code = GAP) 7 mmol/L 5-15 N Blood Urea Nitrogen (test code = 20 mg/dL 9-23 N BUN) Creatinine (test code = CREATT) 0.89 mg/dL 0.55-1.02 N Creatinine Clr Calc Pharmacy 82.64 mL/min (test code = CRCLPHA) Estimated GFR ( Christina > 60 mL/min/1.73m2 (test code = EGFRAA) Estimated GFR (Non Afr Christina > 60 mL/min/1.73m2 (test code = EGFRNAA) BUN/Creatinine Ratio (test code 22 ratio 10-20 H = BCRATIO) Glucose (test code = GLU) 79 mg/dL 74-106 N Osmolality,Calculated (test code 291.1 = OSMOC) Calcium (test code = CA) 9.2 mg/dL 8.3-10.6 N Bilirubin,Total (test code = 0.5 mg/dL 0.2-1.1 N BILIT) Aspartate Amino Transferase 35 U/L 0-34 H (test code = AST) Alanine Aminotransferase (test 17 U/L 10-49 N code = ALT) Total Protein (test code = TP) 6.4 g/dL 5.7-8.2 N Albumin Level (test code = ALB) 4.8 g/dL 3.2-4.8 N Globulin (test code = GLOB) 1.6 mg/dL 2.3-3.5 L Albumin/Globulin Ratio (test 3.0 ratio 0.8-2.0 H code = AGRATIO) Alkaline Phosphatase (test code 47 U/L 46-116 N = ALP) Troponin [id number] 19:50:00 Test Item Value Reference Range Interpretation Comments Troponin I (test 2.72 pg/mL 0.00-45.00 N Interpretiv e Comments:* code = TROP) The 99th percen tile URL for the assay i s <45 pg/ml.* A rise and fall in Troponin I w ith at least onevalue above the 99th percen tile with clinical e vidence ofmyocardial is chemia would support a diagnosis of AM I. Adelta of at le ast 20% is recommended to assess acutecha nges in results above t he 99th percentile in serialmeasureme nts. Prothrombin Time [id number] 19:50:00 Test Item Value Reference Range Interpretation Comments Prothrombin Time (test code = 10.9 Seconds 9.8-13.4 N PT) INR (test code = INR) 1.0 ratio 0.6-1.2 N Partial Thromboplastin [id number] 19:50:00 Test Item Value Reference Range Interpretation Comments Partial Thromboplastin Time 20.00 Seconds 24.39-37.25 L (test code = PTT) Complete Blood Count Auto [id number] 19:50:00 Test Item Value Reference Range Interpretation Comments White Blood Count (test code = 9.9 x10 3/uL 4.4-10.5 N WBCT) Red Blood Count (test code = 4.82 x10 6/uL 4.10-5.70 N RBC) Hemoglobin (test code = HGBT) 14.8 g/dL 13.4-17.4 N Hematocrit (test code = HCTT) 44.6 % 38.7-52.0 N Mean Corpuscular Volume (test 92.50 fL 80.00-100.00 N code = MCV) Mean Corpuscular Hemoglobin 30.7 pg 27.0-32.5 N (test code = MCH) Mean Corpuscular HGB Conc 33.20 g/dL 32.00-37.50 N (test code = MCHC) RDW Coefficient of Variation 13.9 % 11.5-14.5 N (test code = RDWCV) Platelet Count (test code = 295.0 x10 3/uL 140.0-440.0 N PLTT) Mean Platelet Volume (test 10.0 fL code = MPV) Immature Granulocytes % (Auto) 0.4 % 0.0-5.0 N (test code = IMMGRAN%) Neutrophils % (Auto) (test 79.2 % 36.0-70.0 H code = NE%) Lymphocytes % (Auto) (test 12.0 % 12.0-44.0 N code = LY%) Monocytes % (Auto) (test code 5.9 % 0.0-11.0 N = MO%) Eosinophils % (Auto) (test 1.8 % 0.0-7.0 N code = EO%) Basophils % (Auto) (test code 0.7 % 0.0-2.0 N = BA%) Immature Granulocytes # (Auto) 0.04 x10 3/uL (test code = IMMGRAN#) Neutrophils # (Auto) (test 7.8 x10 3/uL 1.6-7.4 H code = NE#) Lymphocytes # (Auto) (test 1.19 x10 3/uL 0.50-4.60 N code = LY#) Monocytes # (Auto) (test code 0.58 x10 3/uL 0.00-1.20 N = MO#) Eosinophils # (Auto) (test 0.18 x10 3/uL 0.00-0.74 N code = EO#) Basophils # (Auto) (test code 0.07 x10 3/uL 0.00-0.21 N = BA#) nRBC Abs (test code = NRBCA) 0 nRBC Pct (test code = NRBCP) 0 % B-Type Natriuretic [id number] 19:50:00 Test Item Value Reference Range Interpretation Comments B-Type Natriuretic Peptide (test 30.2 pg/mL 0.0-99.9 N code = BNP) SARS-CoV-2 (COVID-19) RNA [Presence] in Respiratory specimen by COOPER with probe [id number] 03:31:41 Test Item Value Reference Range Interpretation Comments SARS-CoV-2 (COVID-19) RNA Not detected Not-Detected [Presence] in Respiratory specimen by COOPER with probe detection (test code = 50454-2) [facility] Metabolic [id number] 20:19:00 Test Item Value Reference Range Interpretation Comments Sodium (test code = 139 mmol/L 135-145 N NA) Potassium (test 4.1 mmol/L 3.5-5.1 N code = K) Chloride (test code 100 mmol/L 98-105 N = CL) Carbon Dioxide 25 mmol/L 22-29 N (test code = CO2) Glucose (test code 70 mg/dL 70-115 N = GLU) Blood Urea Nitrogen 16 mg/dL 6-20 N (test code = BUN) Creatinine (test 0.8 mg/dL 0.7-1.2 N code = CREAT) Calcium (test code 9.6 mg/dL 8.3-10.5 N = CA) Prot Total (test 6.8 g/dL 6.4-8.3 N code = TP) Albumin (test code 4.8 g/dL 3.5-5.2 N = ALB) A/G Ratio (test 2.4 Ratio code = AGRATIO) Globulin (test code 2.0 2.9-3.1 L = GLOB) Bili Total (test 0.2 mg/dL 0.1-0.9 N code = TBIL) Alk Phos (test code 67 U/L 40-129 N = APHOS) AST (test code = 26 U/L 1-40 N AST) ALT (test code = 24 U/L 1-41 N ALT) BUN/Creatinine 20.0 Ratio (test code = BCRATIO) Anion Gap (test 14 mmol/L 7-16 N code = AGAP) Estimated GFR (test >60 eGFR (es timated code = GFR) mL/min/1.73m2 Glomerular Hugo tration Rate) is an est imated value,calculate d from the patient's s alison creatinine usin g the MDRD equation.I t is NOT the patient 's actual GFR. The eGFR provides a more clinicallyusefu l measure of kidn ey disease than se rum creatinine alone.This calculation aleshia es sex and race into account, if the informationis provided. If th e race is not provided , and the patient isAfrican-Ameri can, multiply by 1.2 12. If sex is not prov ided, and thepatient is female, multipl y by 0.742. Results for patients <18 ye ars ofage have not been validated by th e MDRD study and shoul d be interpretedwith caution.eGFR Re sult Interpretation: eGFR > or = 60 is in t he Normal RangeeGF R < 60 may mean kidney diseaseeGFR < 1 5 may mean kidney failureRange s recommended by the [employer],http ://nkd ep.nih.gov CT HEAD OR BRAIN WO [id number] 18:19:40Location code: R 15HISTORY: Intracranial hemorrhageCOMPARISON: None.TECHNIQUE: Serial axial scans ofthe brain were obtained without the useof intravenous contrasted in brain and bone window settings.FINDINGS: The ventricles and subarachnoid spaces are normal without evidence ofhydrocephalus, shift ofmidline or mass effect present.No evidence of subarachnoid hemorrhage, intracerebral hematoma orextra-axial fluid collections are present.Visualized portions of the brain parenchyma show no areas of abnormalsignal intensity to suggest mass lesion, acute CVA, or contusion.Osseous structures, surrounding soft tissues, sinuses and mastoids areunremarkable.If Symptomatology persist correlation with MRI is suggested.IMPRESSION:1. Unremarkable nonenhanced CT scan of the brain.Ammonia, [id number] 12:35:00 Test Item Value Reference Range Interpretation Comments Ammonia (test code = NH3) 25.0 umol/L 11.0-35.0 N US DUPLX EXT VEINS COMPRS, [id number] 15:35:40ULTRASOUND: Bilateral lower extremity venous duplex sonography.History: Evaluate for deep venous thro mbosis.Site: R 16COMPARISON: NoneFINDINGS/TECHNIQUE:Grayscale, color Doppler and spectral images of the bilateral lowerextremity venous systems was performed.The common femoral, femoral (proximal, mid,and distal aspects),popliteal, anterior tibial and posterior tibial veins are withoutevidence of a filling defect to suggest venous thrombosis. The commonfemoral, femoral and popliteal veins are compressible. Spectral imagesdemonstrate normal augmentation.IMPRESSION: No evidence of bilateral lower extremity DVT within the visualizedportions of the deep veins.XR ABDOMEN KUB 1V 2016-12-25 15:25:52Exam: KUBLocation: D 4History: IVC filter placement.Findings:A supine view of the abdomen demonstrates an unremarkable bowel gaspattern. No organomegaly, abnormal masses or calcifications are seen. Nopneumatosis or free air is present. An IVC filter is in place.Impression:Unremarkable exam.Glycosylated [id number] 10:36:00 Test Item Value Reference Range Interpretation Comments HBA1c (test code = HBA1C) 5.1 % 4.8-5.9 N RPR, [id number] 12:10:00 Test Item Value Reference Range Interpretation Comments RPR (test code = RPR) Non-Reactive Non-Reactive N Thyroid Stimulating Hormone (TSH)2016-12-24 06:02:00 Test Item Value Reference Range Interpretation Comments TSH (test code = TSH) 1.03 mIU/mL 0.270-4.200 N Lipid [id number] 05:53:00 Test Item Value Reference Range Interpretation Comments Cholesterol (test 205 mg/dL 0-200 H code = CHOL) Triglycerides (test 69 mg/dL 9-200 N code = TRIG) HDL (test code = 68 mg/dL 40-60 H HDL) Chol/HDL (test code 3.0 Ratio 0.0-5.0 N = CHOLPHDL) LDL, Calculated 123 0-130 N (NOTE)RISK O F HEART (test code = LDLC) DISEASEPu blished by Polish Heart AssociationAnal yte Optimal Boderli ne Increased RiskC HOL <200 200-239 >240TRI G <150 150-199 >200HDL Male: >60 <40HDL Fem saleem: >60 <50LDL <100 130 -159 >160LDL NEAR OP TIMAL IS 100-129 VLDL (test code = 14 mg/dL 5-40 N VLDL) LDL/HDL (test code = 2 LDLPHDL) Comprehensive Metabolic [id number] 18:42:00 Test Item Value Reference Range Interpretation Comments Sodium (test code = 149 mmol/L 135-145 H NA) Potassium (test 3.8 mmol/L 3.5-5.1 N code = K) Chloride (test code 107 mmol/L 98-105 H = CL) Carbon Dioxide 24 mmol/L 22-29 N (test code = CO2) Glucose (test code 78 mg/dL 70-115 N = GLU) Blood Urea Nitrogen 32 mg/dL 6-20 H (test code = BUN) Creatinine (test 0.8 mg/dL 0.7-1.2 N code = CREAT) Calcium (test code 10.3 mg/dL 8.3-10.5 N = CA) Prot Total (test 7.3 g/dL 6.4-8.3 N code = TP) Albumin (test code 5.0 g/dL 3.5-5.2 N = ALB) A/G Ratio (test 2.2 Ratio code = AGRATIO) Globulin (test code 2.3 2.9-3.1 L = GLOB) Bili Total (test 0.5 mg/dL 0.1-0.9 N code = TBIL) Alk Phos (test code 83 U/L 40-129 N = APHOS) AST (test code = 28 U/L 1-40 N AST) ALT (test code = 25 U/L 1-41 N ALT) BUN/Creatinine 40.0 Ratio (test code = BCRATIO) Anion Gap (test 18 mmol/L 7-16 H code = AGAP) Estimated GFR (test >60 eGFR (es timated code = GFR) mL/min/1.73m2 Glomerular Hugo tration Rate) is an est imated value,calculate d from the patient's s alison creatinine usin g the MDRD equation.I t is NOT the patient 's actual GFR. The eGFR provides a more clinicallyusefu l measure of kidn ey disease than se rum creatinine alone.This calculation aleshia es sex and race into account, if the informationis provided. If th e race is not provided , and the patient isAfrican-Ameri can, multiply by 1.2 12. If sex is not prov ided, and thepatient is female, multipl y by 0.742. Results for patients <18 ye ars ofage have not been validated by th e MDRD study and christopher wong be interpretedwith caution.eGFR Re sult Interpretation: eGFR > or = 60 is in t he Normal RangeeGF R < 60 may mean kidney diseaseeGFR < 1 5 may mean kidney failureRange s recommended by the National Kidney Foundation,http ://nkd ep.nih.gov CBC with [id number] 17:59:00 Test Item Value Reference Range Interpretation Comments WBC (test code = WBC) 9.4 K/cumm 4.4-10.5 N RBC (test code = RBC) 4.90 M/cumm 4.10-5.70 N Hemoglobin (test code = HGB) 14.9 gm/dL 13.4-17.4 N Hematocrit (test code = HCT) 44.1 % 38.7-52.0 N MCV (test code = MCV) 89.8 fL 80-100 N MCH (test code = MCH) 30.3 pg 27.0-32.5 N MCHC (test code = MCHC) 33.7 g/dL 32.0-37.5 N RDW (test code = RDW) 14.0 % 11.5-14.5 N Platelet Count (test code = 343 K/cumm 140-440 N PLTCT) MPV (test code = MPV) 7.6 fL Diff Method (test code = DIFFM) Auto Neutrophil (test code = NEUT) 75.2 % 36-70 H Lymphocyte (test code = LYMPH) 14.4 % 12-44 N Monocyte (test code = MONO) 9.9 % 0-11 N Eosinophil (test code = EOS) 0.1 % 0-7 N Basophil (test code = BASO) 0.4 % 0-2 N Neutro Abs (test code = ANEUT) 7.1 K/cumm 1.6-7.4 N Lymph Abs (test code = ALYMPH) 1.4 K/cumm 0.5-4.6 N [place] Abs (test code = AMONO) 0.9 K/cumm 0.0-1.2 N Eos Abs (test code = AEOS) 0.01 K/cumm 0.00-0.74 N Baso Abs (test code = ABASO) 0.0 K/cumm 0.00-0.21 N [id number] 18:46:00 Test Item Value Reference Range Interpretation Comments Globulin (test code = Globulin) 3.3 2.0-4.0 [id number] 18:46:00 Test Item Value Reference Range Interpretation Comments eGFR (test code = eGFR) 99 [facility] Health[id number] 18:46:00 Test Item Value Reference Range Interpretation Comments Calcium Lvl (test code = Calcium Lvl) 9.0 8.5-10.5 [facility] Hea[id number] 18:46:00 Test Item Value Reference Range Interpretation Comments Chloride Lvl (test code = Chloride Lvl) 106 95-109 [facility] He[id number] 18:46:00 Test Item Value Reference Range Interpretation Comments Creatinine Lvl (test code = Creatinine 0.9 0.5-1.4 Lvl) [facility] H[id number] 18:46:00 Test Item Value Reference Range Interpretation Comments Potassium Lvl (test code = Potassium 4.2 3.5-5.1 Lvl) [facility] H[id number] 18:46:00 Test Item Value Reference Range Interpretation Comments Sodium Lvl (test code = Sodium Lvl) 139 135-145 [facility] Hea[id number] 18:46:00 Test Item Value Reference Range Interpretation Comments CO2 (test code = CO2) 24 24-32 [facility] Health[id number] 18:46:00 Test Item Value Reference Range Interpretation Comments BUN (test code = BUN) 16 7-22 [facility] He[id number] 18:46:00 Test Item Value Reference Range Interpretation Comments Glucose Lvl (test code = Glucose Lvl) 141 70-99 [facility] Health[id number] 18:46:00 Test Item Value Reference Range Interpretation Comments Albumin Lvl (test code = Albumin Lvl) 3.6 3.5-5.0 [facility] Hea[id number] 18:46:00 Test Item Value Reference Range Interpretation Comments Alk Phos (test code = Alk Phos) 65 39-136 [facility] H[id number] 18:46:00 Test Item Value Reference Range Interpretation Comments Bili Total (test code = Bili Total) 0.3 0.2-1.3 [facility] Hea[id number] 18:46:00 Test Item Value Reference Range Interpretation Comments ALT (test code = ALT) 100 See_Comment [Auto mated message] The system which ge nerated this result transmit elizabeth reference range : <=65. The reference range was not used to interpr et this result as lukas l/abnormal. [facility] HealthJcozyrhNIHCXFIXGUJN8703-14-61 18:46:00 Test Item Value Reference Range Interpretation Comments AST (test code = AST) 53 See_Comment [Auto mated message] The system which ge nerated this result transmit elizabeth reference range : <=37. The reference range was not used to interpr et this result as lukas l/abnormal. [facility] Health[id number] 18:46:00 Test Item Value Reference Range Interpretation Comments Total Protein (test code = Total 6.9 6.4-8.4 Protein) [id number] 18:46:00 Test Item Value Reference Range Interpretation Comments Eosinophils (test code = 4.2 See_Comment [A utomated message] The Eosinophils) system which ge nerated this result tra nsmitted reference range : <=4.0. The reference r mitra was not used to int erpret this result as normal/abnormal . [facility] ResourcesIomculoUMCCXNUPVW7751-02-33 18:46:00 Test Item Value Reference Range Interpretation Comments Segs (test code = Segs) 56.4 45.0-75.0 [facility] Re[id number] 18:46:00 Test Item Value Reference Range Interpretation Comments Monocytes (test code = Monocytes) 10.3 2.0-12.0 [facility] Re[id number] 18:46:00 Test Item Value Reference Range Interpretation Comments Lymphocytes (test code = Lymphocytes) 28.0 20.0-40.0 [facility] Resourc[id number] 18:46:00 Test Item Value Reference Range Interpretation Comments Monocytes # (test code 0.5 See_Comment [Aut omated message] The = Monocytes #) system which generated this result tra nsmitted reference range : <=0.8. The reference r mitra was not used to int erpret this result as normal/abnormal . [facility] Resourc[id number] 18:46:00 Test Item Value Reference Range Interpretation Comments Basophils (test code = 1.1 See_Comment [Aut omated message] The Basophils) system which ge nerated this result tra nsmitted reference range : <=1.0. The reference r mitra was not used to int erpret this result as normal/abnormal . [id number] 18:46:00 Test Item Value Reference Range Interpretation Comments Lymphocytes # (test code = Lymphocytes 1.5 1.0-5.5 #) [facility] Resourc[id number] 18:46:00 Test Item Value Reference Range Interpretation Comments Segs-Bands # (test code = Segs-Bands #) 2.9 1.5-8.1 [facility] Resourc[id number] 18:46:00 Test Item Value Reference Range Interpretation Comments Eosinophils # (test code 0.2 See_Comment [A utomated message] The = Eosinophils #) system wh h generated this result tra nsmitted reference range : <=0.5. The reference r mitra was not used to int erpret this result as normal/abnormal . [facility] Resourc[id number] 18:46:00 Test Item Value Reference Range Interpretation Comments Basophils # (test code 0.1 See_Comment [Aut omated message] The = Basophils #) system which generated this result tra nsmitted reference range : <=0.2. The reference r mitra was not used to int erpret this result as normal/abnormal . [facility]IgsljdwNWCGQSLNQL5508-07-65 18:46:00 Test Item Value Reference Range Interpretation Comments PT (test code = PT) 11.2 s 12.0-14.7 [id number] 18:46:00 Test Item Value Reference Range Interpretation Comments INR (test code = INR) 0.82 0.85-1.17 [facility] ResourcesVjnoralEFZLDBHVCE6264-10-17 18:46:00 Test Item Value Reference Range Interpretation Comments PTT (test code = PTT) 28.6 s 22.9-35.8 [facility] Resourc[id number] 18:46:00 Test Item Value Reference Range Interpretation Comments MPV (test code = MPV) 8.1 7.4-10.4 [facility] Resourc[id number] 18:46:00 Test Item Value Reference Range Interpretation Comments Platelet (test code = Platelet) 301 133-450 [facility] Resourc[id number] 18:46:00 Test Item Value Reference Range Interpretation Comments RDW (test code = RDW) 14.5 11.5-14.5 [id number] 18:46:00 Test Item Value Reference Range Interpretation Comments RBC (test code = RBC) 4.84 4.70-6.10 [facility] Resourc[id number] 18:46:00 Test Item Value Reference Range Interpretation Comments Hgb (test code = Hgb) 14.4 14.0-18.0 [facility] ResourcesNgextvbXQVFDVJRFB0530-53-98 18:46:00 Test Item Value Reference Range Interpretation Comments WBC (test code = WBC) 5.2 3.7-10.4 [facility] Re[id number] 18:46:00 Test Item Value Reference Range Interpretation Comments MCH (test code = MCH) 29.8 pg 27.0-31.0 [facility] ResourcesVjwgxpxTOURKQRULM3060-03-29 18:46:00 Test Item Value Reference Range Interpretation Comments MCV (test code = MCV) 92.0 80.0-94.0 [id number] 18:46:00 Test Item Value Reference Range Interpretation Comments Hct (test code = Hct) 44.5 42.0-54.0 [facility] Res[id number] 18:46:00 Test Item Value Reference Range Interpretation Comments MCHC (test code = MCHC) 32.4 32.0-36.0 [facility]ElaxsiaQVTMRSWFYQ5053-08-68 18:46:00 Test Item Value Reference Range Interpretation Comments [place]-Hep C Ab (test Negative *NA*(07/22/14 code = [place]-Hep C 1:46 PM) Ab) [facility] AND [id number] 18:46:00 Test Item Value Reference Range Interpretation Comments UA Urobilinogen (test code = UA <=1.0 mg/dL 0.1-1.0 Urobilinogen) [facility] AND [id number] 18:46:00 Test Item Value Reference Range Interpretation Comments UA Sq Epi (test code = UA Sq Epi) None Seen [facility] AND [id number] 18:46:00 Test Item Value Reference Range Interpretation Comments UA Leuk Est (test Negative (07/22/14 1:46 code = UA Leuk Est) PM) [facility] AND [id number] 18:46:00 Test Item Value Reference Range Interpretation Comments UA Nitrite (test code Negative (07/22/14 1:46 = UA Nitrite) PM) [facility] AND [id number] 18:46:00 Test Item Value Reference Range Interpretation Comments UA Blood (test code = Negative (07/22/14 1:46 UA Blood) PM) [facility] AND [id number] 18:46:00 Test Item Value Reference Range Interpretation Comments UA Ketones (test code = UA Negative mg/dL Ketones) [facility] AND [id number] 18:46:00 Test Item Value Reference Range Interpretation Comments UA Bili (test code = Negative *NA*(07/22/14 UA Bili) 1:46 PM) [facility] AND [id number] 18:46:00 Test Item Value Reference Range Interpretation Comments UA Bacteria (test code = UA Occasional /HPF Bacteria) [facility] AND [id number] 18:46:00 Test Item Value Reference Range Interpretation Comments UA RBC (test code = no gt See_Comment [Automa elizabeth message] The UA RBC) system which ge nerated this result transmit elizabeth reference range : <=2. The reference range was not used to interpr et this result as lukas l/abnormal. [facility] AND [id number] 18:46:00 Test Item Value Reference Range Interpretation Comments UA WBC (test code = 1 See_Comment [Automa elizabeth message] The UA WBC) system which ge nerated this result transmit elizabeth reference range : <=5. The reference range was not used to interpr et this result as lukas l/abnormal. [facility] AND [id number] 18:46:00 Test Item Value Reference Range Interpretation Comments UA Glucose (test code = UA Glucose) 30 mg/dL [facility] AND [id number] 18:46:00 Test Item Value Reference Range Interpretation Comments UA Protein (test code = UA Negative mg/dL Protein) [facility] AND [id number] 18:46:00 Test Item Value Reference Range Interpretation Comments UA pH (test code = UA pH) 6.5 5.0-8.0 [facility] AND [id number] 18:46:00 Test Item Value Reference Range Interpretation Comments UA Turbidity (test code = Clear (07/22/14 1:46 UA Turbidity) PM) [facility] AND [id number] 18:46:00 Test Item Value Reference Range Interpretation Comments UA Spec Grav (test code = UA Spec Grav) 1.010 [facility] AND [id number] 18:46:00 Test Item Value Reference Range Interpretation Comments UA Color (test code = Light Yellow UA Color) *NA*(07/22/14 1:46 PM) [facility] [id number] 18:46:00 Test Item Value Reference Range Interpretation Comments Magnesium Lvl (test code = Magnesium 1.8 1.8-2.4 Lvl) [facility] HealthDfcvuxpBRHDEMEHPCSP7262-06-17 18:46:00 Test Item Value Reference Range Interpretation Comments AGAP (test code = AGAP) 13.2 10.0-20.0 [facility] Health[id number] 18:46:00 Test Item Value Reference Range Interpretation Comments B/C Ratio (test code = B/C Ratio) 18 6-25 [facility] HealthNlzfnmtJRNTUFOMJHEX8615-43-13 18:46:00 Test Item Value Reference Range Interpretation Comments A/G Ratio (test code = A/G Ratio) 1.1 0.7-1.6 [facility] Health[id number] 18:46:00 Test Item Value Reference Range Interpretation Comments Globulin (test code = Globulin) 3.3 2.0-4.0 [facility] Health[id number] 18:46:00 Test Item Value Reference Range Interpretation Comments eGFR (test code = eGFR) 99 [facility] Health[id number] 18:46:00 Test Item Value Reference Range Interpretation Comments Calcium Lvl (test code = Calcium Lvl) 9.0 8.5-10.5 [facility] HealthGtl[id number] 18:46:00 Test Item Value Reference Range Interpretation Comments Chloride Lvl (test code = Chloride Lvl) 106 95-109 [facility] HealthKvvcvxkFQOPUGXQUOZB7809-88-04 18:46:00 Test Item Value Reference Range Interpretation Comments Creatinine Lvl (test code = Creatinine 0.9 0.5-1.4 Lvl) [facility] Hea[id number] 18:46:00 Test Item Value Reference Range Interpretation Comments Potassium Lvl (test code = Potassium 4.2 3.5-5.1 Lvl) [facility] HealthQwfgenwTDHIGGSVFQKE1504-53-78 18:46:00 Test Item Value Reference Range Interpretation Comments Sodium Lvl (test code = Sodium Lvl) 139 135-145 [facility] Health[id number] 18:46:00 Test Item Value Reference Range Interpretation Comments CO2 (test code = CO2) 24 24-32 [facility] Health[id number] 18:46:00 Test Item Value Reference Range Interpretation Comments BUN (test code = BUN) 16 7-22 [facility] HealthJsshiwrQSFWOLQAYYHK9506-55-59 18:46:00 Test Item Value Reference Range Interpretation Comments Glucose Lvl (test code = Glucose Lvl) 141 70-99 [facility] HealthGkcwuvsWBCPWGYCGFXF1228-12-08 18:46:00 Test Item Value Reference Range Interpretation Comments Albumin Lvl (test code = Albumin Lvl) 3.6 3.5-5.0 [facility] Health[id number] 18:46:00 Test Item Value Reference Range Interpretation Comments Alk Phos (test code = Alk Phos) 65 39-136 [facility] Health[id number] 18:46:00 Test Item Value Reference Range Interpretation Comments Bili Total (test code = Bili Total) 0.3 0.2-1.3 [facility] Health[id number] 18:46:00 Test Item Value Reference Range Interpretation Comments ALT (test code = ALT) 100 See_Comment [Auto mated message] The system which ge nerated this result transmit elizabeth reference range : <=65. The reference range was not used to interpr et this result as lukas l/abnormal. [facility] HealthIbpsmmbEQTUKIQXUQMI2341-81-90 18:46:00 Test Item Value Reference Range Interpretation Comments AST (test code = AST) 53 See_Comment [Auto mated message] The system which ge nerated this result transmit elizabeth reference range : <=37. The reference range was not used to interpr et this result as lukas l/abnormal. [facility] Health[id number] 18:46:00 Test Item Value Reference Range Interpretation Comments Total Protein (test code = Total 6.9 6.4-8.4 Protein) [id number] 18:46:00 Test Item Value Reference Range Interpretation Comments Eosinophils (test code = 4.2 See_Comment [A utomated message] The Eosinophils) system which ge nerated this result tra nsmitted reference range : <=4.0. The reference r mitra was not used to int erpret this result as normal/abnormal . [id number] 18:46:00 Test Item Value Reference Range Interpretation Comments Segs (test code = Segs) 56.4 45.0-75.0 [facility] Resourc[id number] 18:46:00 Test Item Value Reference Range Interpretation Comments Monocytes (test code = Monocytes) 10.3 2.0-12.0 [facility] Resourc[id number] 18:46:00 Test Item Value Reference Range Interpretation Comments Lymphocytes (test code = Lymphocytes) 28.0 20.0-40.0 [facility] Resourc[id number] 18:46:00 Test Item Value Reference Range Interpretation Comments Monocytes # (test code 0.5 See_Comment [Aut omated message] The = Monocytes #) system which generated this result tra nsmitted reference range : <=0.8. The reference r mitra was not used to int erpret this result as normal/abnormal . [facility] Resourc[id number] 18:46:00 Test Item Value Reference Range Interpretation Comments Basophils (test code = 1.1 See_Comment [Aut omated message] The Basophils) system which ge nerated this result tra nsmitted reference range : <=1.0. The reference r mitra was not used to int erpret this result as normal/abnormal . [facility] ResourcesQzwcweeMQVQJTPDPX1139-22-11 18:46:00 Test Item Value Reference Range Interpretation Comments Lymphocytes # (test code = Lymphocytes 1.5 1.0-5.5 #) [facility] Resourc[id number] 18:46:00 Test Item Value Reference Range Interpretation Comments Segs-Bands # (test code = Segs-Bands #) 2.9 1.5-8.1 [facility] Resourc[id number] 18:46:00 Test Item Value Reference Range Interpretation Comments Eosinophils # (test code 0.2 See_Comment [A utomated message] The = Eosinophils #) system whic h generated this result tra nsmitted reference range : <=0.5. The reference r mitra was not used to int erpret this result as normal/abnormal . [facility] Reso[id number] 18:46:00 Test Item Value Reference Range Interpretation Comments Basophils # (test code 0.1 See_Comment [Aut omated message] The = Basophils #) system which generated this result tra nsmitted reference range : <=0.2. The reference r mitra was not used to int erpret this result as normal/abnormal . [facility] ResourcesByoissnFZNNBCJZVB6919-17-17 18:46:00 Test Item Value Reference Range Interpretation Comments PT (test code = PT) 11.2 s 12.0-14.7 [facility] ResourcesCfwshwpWNABFHRNHU2419-35-53 18:46:00 Test Item Value Reference Range Interpretation Comments INR (test code = INR) 0.82 0.85-1.17 [facility]TwxbbmtNEEEWZCYXD9952-93-98 18:46:00 Test Item Value Reference Range Interpretation Comments PTT (test code = PTT) 28.6 s 22.9-35.8 [facility] ResourcesGvcfbxxSVNPUILRLJ1108-21-34 18:46:00 Test Item Value Reference Range Interpretation Comments MPV (test code = MPV) 8.1 7.4-10.4 [facility] ResourcesPydxngnBTHOMLCTLU6184-59-42 18:46:00 Test Item Value Reference Range Interpretation Comments Platelet (test code = Platelet) 301 133-450 [facility] ResourcesDnfvkeyYHGTWYNXCH2038-74-92 18:46:00 Test Item Value Reference Range Interpretation Comments RDW (test code = RDW) 14.5 11.5-14.5 [facility] ResourcesAqwfbydDYWPBYLQNK8365-46-03 18:46:00 Test Item Value Reference Range Interpretation Comments RBC (test code = RBC) 4.84 4.70-6.10 [facility] ResourcesUuykhhlMSYYVLMGVT5495-52-09 18:46:00 Test Item Value Reference Range Interpretation Comments Hgb (test code = Hgb) 14.4 14.0-18.[address] [facility]PYZLOLBBGR9114-09-[facility] 18:46:00 Test Item Value Reference Range Interpretation Comments WBC (test code = WBC) 5.2 3.7-10.[address] [facility]JeqmnzbWMNZBANEQW3564-07-88 18:46:00 Test Item Value Reference Range Interpretation Comments MCH (test code = MCH) 29.8 pg 27.0-31.0 [facility]SzqmzcsZWGBNCULGV3336-91-08 18:46:00 Test Item Value Reference Range Interpretation Comments MCV (test code = MCV) 92.0 80.0-94.0 [facility] HospitalRfxkpyaSAEZVLYFLL9388-70-71 18:46:00 Test Item Value Reference Range Interpretation Comments Hct (test code = Hct) 44.5 42.0-54.0 [facility] HospitalWtyztfnLFPPGRRZXD1668-22-01 18:46:00 Test Item Value Reference Range Interpretation Comments MCHC (test code = MCHC) 32.4 32.0-36.[address] [facility]OznlkshDNFEZBTMRB6496-84-53 18:46:00 Test Item Value Reference Range Interpretation Comments [place]-Hep C Ab (test Negative *NA*(07/22/14 code = [place]-Hep C 1:46 PM) Ab) [facility] AND [id number] 18:46:00 Test Item Value Reference Range Interpretation Comments UA Urobilinogen (test code = UA <=1.0 mg/dL 0.1-1.0 Urobilinogen) [facility] AND [id number] 18:46:00 Test Item Value Reference Range Interpretation Comments UA Sq Epi (test code = UA Sq Epi) None Seen [facility] AND [id number] 18:46:00 Test Item Value Reference Range Interpretation Comments UA Leuk Est (test Negative (07/22/14 1:46 code = UA Leuk Est) PM) [facility] AND [id number] 18:46:00 Test Item Value Reference Range Interpretation Comments UA Nitrite (test code Negative (07/22/14 1:46 = UA Nitrite) PM) [facility] AND [id number] 18:46:00 Test Item Value Reference Range Interpretation Comments UA Blood (test code = Negative (07/22/14 1:46 UA Blood) PM) [facility] AND [id number] 18:46:00 Test Item Value Reference Range Interpretation Comments UA Ketones (test code = UA Negative mg/dL Ketones) [facility] AND [id number] 18:46:00 Test Item Value Reference Range Interpretation Comments UA Bili (test code = Negative *NA*(07/22/14 UA Bili) 1:46 PM) [facility] AND [id number] 18:46:00 Test Item Value Reference Range Interpretation Comments UA Bacteria (test code = UA Occasional /HPF Bacteria) [facility] AND [id number] 18:46:00 Test Item Value Reference Range Interpretation Comments UA RBC (test code = no gt See_Comment [Automa elizabeth message] The UA RBC) system which ge nerated this result transmit elizabeth reference range : <=2. The reference range was not used to interpr et this result as lukas l/abnormal. [facility] AND [id number] 18:46:00 Test Item Value Reference Range Interpretation Comments UA WBC (test code = 1 See_Comment [Automa elizabeth message] The UA WBC) system which ge nerated this result transmit elizabeth reference range : <=5. The reference range was not used to interpr et this result as lukas l/abnormal. [facility] AND [id number] 18:46:00 Test Item Value Reference Range Interpretation Comments UA Glucose (test code = UA Glucose) 30 mg/dL [facility] AND [id number] 18:46:00 Test Item Value Reference Range Interpretation Comments UA Protein (test code = UA Negative mg/dL Protein) [facility] AND [id number] 18:46:00 Test Item Value Reference Range Interpretation Comments UA pH (test code = UA pH) 6.5 5.0-8.0 [facility] AND [id number] 18:46:00 Test Item Value Reference Range Interpretation Comments UA Turbidity (test code = Clear (07/22/14 1:46 UA Turbidity) PM) [facility] AND [id number] 18:46:00 Test Item Value Reference Range Interpretation Comments UA Spec Grav (test code = UA Spec Grav) 1.010 [facility] AND [id number] 18:46:00 Test Item Value Reference Range Interpretation Comments UA Color (test code = Light Yellow UA Color) *NA*(07/22/14 1:46 PM) [facility] [id number] 18:46:00 Test Item Value Reference Range Interpretation Comments Magnesium Lvl (test code = Magnesium 1.8 1.8-2.4 Lvl) [facility] HealthDkfmzcbTHPXUBFRRDPG8057-56-14 18:46:00 Test Item Value Reference Range Interpretation Comments AGAP (test code = AGAP) 13.2 10.0-20.0 [facility] HealthWuosppfBUACZQEWXHKG6068-38-18 18:46:00 Test Item Value Reference Range Interpretation Comments B/C Ratio (test code = B/C Ratio) 18 6-25 [facility] HealthGuqzwndBOGPCODGICQQ0673-64-18 18:46:00 Test Item Value Reference Range Interpretation Comments A/G Ratio (test code = A/G Ratio) 1.1 0.7-1.6 [facility] HealthQjsuyumTOMBNXPQAVAN7630-27-34 18:46:00 Test Item Value Reference Range Interpretation Comments Globulin (test code = Globulin) 3.3 2.0-4.0 [facility] HealthIziatbeUCSJYJHQIPAF1131-97-65 18:46:00 Test Item Value Reference Range Interpretation Comments eGFR (test code = eGFR) 99 [facility] HealthFvkuufhJYAVVTQDEQXL9841-27-94 18:46:00 Test Item Value Reference Range Interpretation Comments Calcium Lvl (test code = Calcium Lvl) 9.0 8.5-10.5 [facility] HealthUrpqdcnOWNSPGAYQSDF5022-46-96 18:46:00 Test Item Value Reference Range Interpretation Comments Chloride Lvl (test code = Chloride Lvl) 106 95-109 [facility] HealthDlpnxerMAXADEDXSGNA6647-80-85 18:46:00 Test Item Value Reference Range Interpretation Comments Creatinine Lvl (test code = Creatinine 0.9 0.5-1.4 Lvl) [facility] HealthSvzmcacRMODLLWYEXRS6407-53-34 18:46:00 Test Item Value Reference Range Interpretation Comments Potassium Lvl (test code = Potassium 4.2 3.5-5.1 Lvl) [facility] HealthAcqiyrjMACLTGGVKVQH1002-38-26 18:46:00 Test Item Value Reference Range Interpretation Comments Sodium Lvl (test code = Sodium Lvl) 139 135-145 [facility] HealthRfoeltkQUWWLWTMECLT1485-70-00 18:46:00 Test Item Value Reference Range Interpretation Comments CO2 (test code = CO2) 24 24-32 [facility] HealthDqtdaopYUIYCHMOOMUT8578-73-17 18:46:00 Test Item Value Reference Range Interpretation Comments BUN (test code = BUN) 16 7-22 [facility] HealthEuyxxarOULIAFEDXRAQ0162-61-33 18:46:00 Test Item Value Reference Range Interpretation Comments Glucose Lvl (test code = Glucose Lvl) 141 70-99 [facility] HealthAqknjpyYDRFYYMRPIGT2519-18-39 18:46:00 Test Item Value Reference Range Interpretation Comments Albumin Lvl (test code = Albumin Lvl) 3.6 3.5-5.0 [facility] HealthWevozmiSTBSYZCSEJJL4778-71-34 18:46:00 Test Item Value Reference Range Interpretation Comments Alk Phos (test code = Alk Phos) 65 39-136 [facility] HealthNtokrjyQBMKZWLKNYTA5798-61-36 18:46:00 Test Item Value Reference Range Interpretation Comments Bili Total (test code = Bili Total) 0.3 0.2-1.3 [facility] HealthOqmqsgrPFSFOARDOIME3973-03-99 18:46:00 Test Item Value Reference Range Interpretation Comments ALT (test code = ALT) 100 See_Comment [Auto mated message] The system which ge nerated this result transmit elizabeth reference range : <=65. The reference range was not used to interpr et this result as lukas l/abnormal. [facility] HealthHkhbiplQIDOIOEZLVDW0645-71-09 18:46:00 Test Item Value Reference Range Interpretation Comments AST (test code = AST) 53 See_Comment [Auto mated message] The system which ge nerated this result transmit elizabeth reference range : <=37. The reference range was not used to interpr et this result as lukas l/abnormal. [facility] HealthAsqhrslLBUROTDGGUWI8198-82-30 18:46:00 Test Item Value Reference Range Interpretation Comments Total Protein (test code = Total 6.9 6.4-8.4 Protein) [facility]GhxpiyhYUEABPQBKG1395-14-62 18:46:00 Test Item Value Reference Range Interpretation Comments Eosinophils (test code = 4.2 See_Comment [A utomated message] The Eosinophils) system which ge nerated this result tra nsmitted reference range : <=4.0. The reference r mitra was not used to int erpret this result as normal/abnormal . [facility]VbswbpyBSQMNSLBVN1049-61-05 18:46:00 Test Item Value Reference Range Interpretation Comments Segs (test code = Segs) 56.4 45.0-75.0 [facility] ResourcesNgboohqWFTLVCSPTP1623-30-23 18:46:00 Test Item Value Reference Range Interpretation Comments Monocytes (test code = Monocytes) 10.3 2.0-12.0 [facility]ImvxdkiPISCVJTQTH7711-21-13 18:46:00 Test Item Value Reference Range Interpretation Comments Lymphocytes (test code = Lymphocytes) 28.0 20.0-40.0 [facility] ResourcesMsxbvsaDJXAZICENI6763-06-69 18:46:00 Test Item Value Reference Range Interpretation Comments Monocytes # (test code 0.5 See_Comment [Aut omated message] The = Monocytes #) system which generated this result tra nsmitted reference range : <=0.8. The reference r mitra was not used to int erpret this result as normal/abnormal . [facility] ResourcesEylllxbLUGKSUDLTC4802-80-87 18:46:00 Test Item Value Reference Range Interpretation Comments Basophils (test code = 1.1 See_Comment [Aut omated message] The Basophils) system which ge nerated this result tra nsmitted reference range : <=1.0. The reference r mitra was not used to int erpret this result as normal/abnormal . [id number] 18:46:00 Test Item Value Reference Range Interpretation Comments Lymphocytes # (test code = Lymphocytes 1.5 1.0-5.5 #) [facility] ResourcesIfgzuxuSCCBZJEDYN9116-26-91 18:46:00 Test Item Value Reference Range Interpretation Comments Segs-Bands # (test code = Segs-Bands #) 2.9 1.5-8.1 [facility] ResourcesQzbhogwULCTNUZOYY4445-08-99 18:46:00 Test Item Value Reference Range Interpretation Comments Eosinophils # (test code 0.2 See_Comment [A utomated message] The = Eosinophils #) system whic h generated this result tra nsmitted reference range : <=0.5. The reference r mitra was not used to int erpret this result as normal/abnormal . [facility]TgidxojUJCRMNQJCC2023-68-58 18:46:00 Test Item Value Reference Range Interpretation Comments Basophils # (test code 0.1 See_Comment [Aut omated message] The = Basophils #) system which generated this result tra nsmitted reference range : <=0.2. The reference r mitra was not used to int erpret this result as normal/abnormal . [facility] ResourcesKzhwxqlIVIGNHJEJD9642-79-17 18:46:00 Test Item Value Reference Range Interpretation Comments PT (test code = PT) 11.2 s 12.0-14.7 [facility]GptlxooJCLKKURYMJ8950-56-42 18:46:00 Test Item Value Reference Range Interpretation Comments INR (test code = INR) 0.82 0.85-1.17 [facility] ResourcesNxcnarjJGNCZXYBUH4337-30-07 18:46:00 Test Item Value Reference Range Interpretation Comments PTT (test code = PTT) 28.6 s 22.9-35.8 [facility] ResourcesMialfrzTAWZMYOSSH6298-31-01 18:46:00 Test Item Value Reference Range Interpretation Comments MPV (test code = MPV) 8.1 7.4-10.4 [facility]XwxinkzRTCOSGSIEK6524-94-10 18:46:00 Test Item Value Reference Range Interpretation Comments Platelet (test code = Platelet) 301 133-450 [facility] ResourcesLudgcbhJSGSHWLQHS5724-50-34 18:46:00 Test Item Value Reference Range Interpretation Comments RDW (test code = RDW) 14.5 11.5-14.5 [facility] ResourcesLafqwjdRUWFATLPDI7586-99-00 18:46:00 Test Item Value Reference Range Interpretation Comments RBC (test code = RBC) 4.84 4.70-6.10 [facility] ResourcesPxeijsyLVFATYYJSR8177-69-37 18:46:00 Test Item Value Reference Range Interpretation Comments Hgb (test code = Hgb) 14.4 14.0-18.0 [facility]PbehqdlLSPZGGLYPY1714-52-80 18:46:00 Test Item Value Reference Range Interpretation Comments WBC (test code = WBC) 5.2 3.7-10.4 [facility] ResourcesBetwiyeTMCPHTHGFB3008-34-80 18:46:00 Test Item Value Reference Range Interpretation Comments MCH (test code = MCH) 29.8 pg 27.0-31.0 [facility] ResourcesDnyjpdbHNRQQZPTCF5640-21-65 18:46:00 Test Item Value Reference Range Interpretation Comments MCV (test code = MCV) 92.0 80.0-94.[address] [facility]QjhaahbVXSVCKLUYP3737-71-15 18:46:00 Test Item Value Reference Range Interpretation Comments Hct (test code = Hct) 44.5 42.0-54.0 [facility]RQMXVPVEFU1629-39-63 18:46:00 Test Item Value Reference Range Interpretation Comments MCHC (test code = MCHC) 32.4 32.0-36.0 [facility] CenterWnhavqlOCHNOWJGJF4635-74-42 18:46:00 Test Item Value Reference Range Interpretation Comments [place]-Hep C Ab (test Negative *NA*(07/22/14 code = [place]-Hep C 1:46 PM) Ab) [facility] AND [id number] 18:46:00 Test Item Value Reference Range Interpretation Comments UA Urobilinogen (test code = UA <=1.0 mg/dL 0.1-1.0 Urobilinogen) [facility] AND [id number] 18:46:00 Test Item Value Reference Range Interpretation Comments UA Sq Epi (test code = UA Sq Epi) None Seen [facility] AND [id number] 18:46:00 Test Item Value Reference Range Interpretation Comments UA Leuk Est (test Negative (07/22/14 1:46 code = UA Leuk Est) PM) [facility] AND [id number] 18:46:00 Test Item Value Reference Range Interpretation Comments UA Nitrite (test code Negative (07/22/14 1:46 = UA Nitrite) PM) [facility] AND [id number] 18:46:00 Test Item Value Reference Range Interpretation Comments UA Blood (test code = Negative (07/22/14 1:46 UA Blood) PM) [facility] AND [id number] 18:46:00 Test Item Value Reference Range Interpretation Comments UA Ketones (test code = UA Negative mg/dL Ketones) [facility] [id number] 18:46:00 Test Item Value Reference Range Interpretation Comments UA Bili (test code = Negative *NA*(07/22/14 UA Bili) 1:46 PM) [facility] [id number] 18:46:00 Test Item Value Reference Range Interpretation Comments UA Bacteria (test code = UA Occasional /HPF Bacteria) [facility] AND [id number] 18:46:00 Test Item Value Reference Range Interpretation Comments UA RBC (test code = no gt See_Comment [Automa elizabeth message] The UA RBC) system which ge nerated this result transmit elizabeth reference range : <=2. The reference range was not used to interpr et this result as lukas l/abnormal. [facility] AND [id number] 18:46:00 Test Item Value Reference Range Interpretation Comments UA WBC (test code = 1 See_Comment [Automa elizabeth message] The UA WBC) system which ge nerated this result transmit elizabeth reference range : <=5. The reference range was not used to interpr et this result as lukas l/abnormal. [facility] AND IKGXU8343-05-11 18:46:00 Test Item Value Reference Range Interpretation Comments UA Glucose (test code = UA Glucose) 30 mg/dL [facility] AND [id number] 18:46:00 Test Item Value Reference Range Interpretation Comments UA Protein (test code = UA Negative mg/dL Protein) [facility] AND [id number] 18:46:00 Test Item Value Reference Range Interpretation Comments UA pH (test code = UA pH) 6.5 5.0-8.0 [facility] AND [id number] 18:46:00 Test Item Value Reference Range Interpretation Comments UA Turbidity (test code = Clear (07/22/14 1:46 UA Turbidity) PM) [facility] AND [id number] 18:46:00 Test Item Value Reference Range Interpretation Comments UA Spec Grav (test code = UA Spec Grav) 1.010 [facility] AND [id number] 18:46:00 Test Item Value Reference Range Interpretation Comments UA Color (test code = Light Yellow UA Color) *NA*(07/22/14 1:46 PM) [facility] [id number] 18:46:00 Test Item Value Reference Range Interpretation Comments Magnesium Lvl (test code = Magnesium 1.8 1.8-2.4 Lvl) [facility] CenterWkpxarpSUFATHGWCNNH7939-46-34 18:46:00 Test Item Value Reference Range Interpretation Comments AGAP (test code = AGAP) 13.2 10.0-20.0 [facility] HealthQywwobdYQOKJTMUJXSQ4037-33-85 18:46:00 Test Item Value Reference Range Interpretation Comments B/C Ratio (test code = B/C Ratio) 18 6-25 [facility] HealthEecgieaYSBJJSLWZVON9384-52-89 18:46:00 Test Item Value Reference Range Interpretation Comments A/G Ratio (test code = A/G Ratio) 1.1 0.7-1.6 [facility] HealthIwvumwpTDOOJKFAOCSQ9826-26-84 18:46:00 Test Item Value Reference Range Interpretation Comments Globulin (test code = Globulin) 3.3 2.0-4.0 [facility] HealthVbvagvlAQOYLBELIEYU0816-94-11 18:46:00 Test Item Value Reference Range Interpretation Comments eGFR (test code = eGFR) 99 [facility] HealthXcmwbwkITXXRXRIDMHU5853-18-76 18:46:00 Test Item Value Reference Range Interpretation Comments Calcium Lvl (test code = Calcium Lvl) 9.0 8.5-10.5 [facility] HealthHeznhvmBLQCIQYETTBJ4249-45-77 18:46:00 Test Item Value Reference Range Interpretation Comments Chloride Lvl (test code = Chloride Lvl) 106 95-109 [facility] HealthMdfhpfgTOCQRHDUJTJQ2257-95-79 18:46:00 Test Item Value Reference Range Interpretation Comments Creatinine Lvl (test code = Creatinine 0.9 0.5-1.4 Lvl) [facility] HealthJllaljbRSSPLLHRJSXH5902-82-05 18:46:00 Test Item Value Reference Range Interpretation Comments Potassium Lvl (test code = Potassium 4.2 3.5-5.1 Lvl) [facility] HealthDlpktdtLAWINLCBXVSQ9574-84-11 18:46:00 Test Item Value Reference Range Interpretation Comments Sodium Lvl (test code = Sodium Lvl) 139 135-145 [facility] HealthCujotkhYAXCNNOMIOWO0041-34-27 18:46:00 Test Item Value Reference Range Interpretation Comments CO2 (test code = CO2) 24 24-32 [facility] HealthAxtmvysRXDLZQWFZHRC5883-91-25 18:46:00 Test Item Value Reference Range Interpretation Comments BUN (test code = BUN) 16 7-22 [facility] HealthWdsslvpYXZDYXMMAJDP9791-43-84 18:46:00 Test Item Value Reference Range Interpretation Comments Glucose Lvl (test code = Glucose Lvl) 141 70-99 [facility] HealthIwahjxtKDWUMFFNPYZP0972-93-70 18:46:00 Test Item Value Reference Range Interpretation Comments Albumin Lvl (test code = Albumin Lvl) 3.6 3.5-5.0 [facility] HealthGzhcfqqQFGHATTGUUXW1482-96-04 18:46:00 Test Item Value Reference Range Interpretation Comments Alk Phos (test code = Alk Phos) 65 39-136 [facility] HealthHtkkiviMIEADQLGBCST7088-34-27 18:46:00 Test Item Value Reference Range Interpretation Comments Bili Total (test code = Bili Total) 0.3 0.2-1.3 [facility] HealthHrmhdffTYFABQQLQBHZ7954-82-76 18:46:00 Test Item Value Reference Range Interpretation Comments ALT (test code = ALT) 100 See_Comment [Auto mated message] The system which ge nerated this result transmit elizabeth reference range : <=65. The reference range was not used to interpr et this result as lukas l/abnormal. [facility] HealthVietqofXPLVZIZRTDVA5206-76-80 18:46:00 Test Item Value Reference Range Interpretation Comments AST (test code = AST) 53 See_Comment [Auto mated message] The system which ge nerated this result transmit elizabeth reference range : <=37. The reference range was not used to interpr et this result as lukas l/abnormal. [facility] HealthDhyopgpAUVIGTOUOHME7682-31-12 18:46:00 Test Item Value Reference Range Interpretation Comments Total Protein (test code = Total 6.9 6.4-8.4 Protein) [facility]CqqqsuzTDEYXPGEXL5294-71-94 18:46:00 Test Item Value Reference Range Interpretation Comments Eosinophils (test code = 4.2 See_Comment [A utomated message] The Eosinophils) system which ge nerated this result tra nsmitted reference range : <=4.0. The reference r mitra was not used to int erpret this result as normal/abnormal . [facility] ResourcesTfpurneRITIHKOSHX4200-93-02 18:46:00 Test Item Value Reference Range Interpretation Comments Segs (test code = Segs) 56.4 45.0-75.0 [facility]OmlayrqSMTNMPVUWS7429-97-19 18:46:00 Test Item Value Reference Range Interpretation Comments Monocytes (test code = Monocytes) 10.3 2.0-12.0 [facility] ResourcesGjdwscrHSDAGADMEY5201-57-95 18:46:00 Test Item Value Reference Range Interpretation Comments Lymphocytes (test code = Lymphocytes) 28.0 20.0-40.0 [facility] ResourcesNbfqpujQUSFCDQSJM3306-36-51 18:46:00 Test Item Value Reference Range Interpretation Comments Monocytes # (test code 0.5 See_Comment [Aut omated message] The = Monocytes #) system which generated this result tra nsmitted reference range : <=0.8. The reference r mitra was not used to int erpret this result as normal/abnormal . [facility]OcrmdqwDDKBZJXFYY7855-98-60 18:46:00 Test Item Value Reference Range Interpretation Comments Basophils (test code = 1.1 See_Comment [Aut omated message] The Basophils) system which ge nerated this result tra nsmitted reference range : <=1.0. The reference r mitra was not used to int erpret this result as normal/abnormal . [facility] ResourcesYiddohpZVPZUQXPCC5345-57-81 18:46:00 Test Item Value Reference Range Interpretation Comments Lymphocytes # (test code = Lymphocytes 1.5 1.0-5.5 #) [facility] ResourcesKufrhwbBMZNJALDBS0769-21-66 18:46:00 Test Item Value Reference Range Interpretation Comments Segs-Bands # (test code = Segs-Bands #) 2.9 1.5-8.1 [facility] ResourcesEfjtaziNIGNAGCGFO9026-53-90 18:46:00 Test Item Value Reference Range Interpretation Comments Eosinophils # (test code 0.2 See_Comment [A utomated message] The = Eosinophils #) system whic h generated this result tra nsmitted reference range : <=0.5. The reference r mitra was not used to int erpret this result as normal/abnormal . [facility] Resourc[id number] 18:46:00 Test Item Value Reference Range Interpretation Comments Basophils # (test code 0.1 See_Comment [Aut omated message] The = Basophils #) system which generated this result tra nsmitted reference range : <=0.2. The reference r mitra was not used to int erpret this result as normal/abnormal . [facility]JyuxworRTBWMTIPZX6260-25-52 18:46:00 Test Item Value Reference Range Interpretation Comments PT (test code = PT) 11.2 s 12.0-14.7 [facility] Resourc[id number] 18:46:00 Test Item Value Reference Range Interpretation Comments INR (test code = INR) 0.82 0.85-1.17 [facility] ResourcesUzvrgzyTZAGGBEXYE1351-62-67 18:46:00 Test Item Value Reference Range Interpretation Comments PTT (test code = PTT) 28.6 s 22.9-35.8 [facility] ResourcesNayzbhzFZUQYBTYMW3669-87-37 18:46:00 Test Item Value Reference Range Interpretation Comments MPV (test code = MPV) 8.1 7.4-10.4 [facility] ResourcesWwljzvoISAXJLTTTW6750-83-92 18:46:00 Test Item Value Reference Range Interpretation Comments Platelet (test code = Platelet) 301 133-450 [facility] ResourcesHkbqvmbXCPQGRRCZX8707-75-99 18:46:00 Test Item Value Reference Range Interpretation Comments RDW (test code = RDW) 14.5 11.5-14.5 [facility] ResourcesWomygvhTTMPAJYRIL0528-08-91 18:46:00 Test Item Value Reference Range Interpretation Comments RBC (test code = RBC) 4.84 4.70-6.10 [facility] ResourcesHcvzrezIKEEJSXSPC9246-62-57 18:46:00 Test Item Value Reference Range Interpretation Comments Hgb (test code = Hgb) 14.4 14.0-18.0 [facility] ResourcesGqombfeVQCCBTHZJJ8269-82-73 18:46:00 Test Item Value Reference Range Interpretation Comments WBC (test code = WBC) 5.2 3.7-10.4 [facility] ResourcesRecqszsHSYLEBEFCZ1232-55-17 18:46:00 Test Item Value Reference Range Interpretation Comments MCH (test code = MCH) 29.8 pg 27.0-31.0 [facility] ResourcesJsvprcwITSKXPBOXZ0907-20-35 18:46:00 Test Item Value Reference Range Interpretation Comments MCV (test code = MCV) 92.0 80.0-94.0 [facility] ResourcesVqvgycgQFSXJKCDGW8626-82-00 18:46:00 Test Item Value Reference Range Interpretation Comments Hct (test code = Hct) 44.5 42.0-54.0 [facility] ResourcesVrotwjmFBZZXRBEXC4338-80-73 18:46:00 Test Item Value Reference Range Interpretation Comments MCHC (test code = MCHC) 32.4 32.0-36.0 [facility]EeplyeeEGHBGEFUHA3248-83-27 18:46:00 Test Item Value Reference Range Interpretation Comments [place]-Hep C Ab (test Negative *NA*(07/22/14 code = [place]-Hep C 1:46 PM) Ab) [facility] AND [id number] 18:46:00 Test Item Value Reference Range Interpretation Comments UA Urobilinogen (test code = UA <=1.0 mg/dL 0.1-1.0 Urobilinogen) [facility] AND [id number] 18:46:00 Test Item Value Reference Range Interpretation Comments UA Sq Epi (test code = UA Sq Epi) None Seen [facility] AND [id number] 18:46:00 Test Item Value Reference Range Interpretation Comments UA Leuk Est (test Negative (07/22/14 1:46 code = UA Leuk Est) PM) [facility] AND [id number] 18:46:00 Test Item Value Reference Range Interpretation Comments UA Nitrite (test code Negative (07/22/14 1:46 = UA Nitrite) PM) [facility] AND [id number] 18:46:00 Test Item Value Reference Range Interpretation Comments UA Blood (test code = Negative (07/22/14 1:46 UA Blood) PM) [facility] AND [id number] 18:46:00 Test Item Value Reference Range Interpretation Comments UA Ketones (test code = UA Negative mg/dL Ketones) [facility] AND [id number] 18:46:00 Test Item Value Reference Range Interpretation Comments UA Bili (test code = Negative *NA*(07/22/14 UA Bili) 1:46 PM) [facility] AND [id number] 18:46:00 Test Item Value Reference Range Interpretation Comments UA Bacteria (test code = UA Occasional /HPF Bacteria) [facility] AND [id number] 18:46:00 Test Item Value Reference Range Interpretation Comments UA RBC (test code = no gt See_Comment [Automa elizabeth message] The UA RBC) system which ge nerated this result transmit elizabeth reference range : <=2. The reference range was not used to interpr et this result as lukas l/abnormal. [facility] AND [id number] 18:46:00 Test Item Value Reference Range Interpretation Comments UA WBC (test code = 1 See_Comment [Automa elizabeth message] The UA WBC) system which ge nerated this result transmit elizabeth reference range : <=5. The reference range was not used to interpr et this result as lukas l/abnormal. [facility] AND [id number] 18:46:00 Test Item Value Reference Range Interpretation Comments UA Glucose (test code = UA Glucose) 30 mg/dL [facility] AND [id number] 18:46:00 Test Item Value Reference Range Interpretation Comments UA Protein (test code = UA Negative mg/dL Protein) [facility] AND [id number] 18:46:00 Test Item Value Reference Range Interpretation Comments UA pH (test code = UA pH) 6.5 5.0-8.0 [facility] AND [id number] 18:46:00 Test Item Value Reference Range Interpretation Comments UA Turbidity (test code = Clear (07/22/14 1:46 UA Turbidity) PM) [facility] AND [id number] 18:46:00 Test Item Value Reference Range Interpretation Comments UA Spec Grav (test code = UA Spec Grav) 1.010 [facility] AND [id number] 18:46:00 Test Item Value Reference Range Interpretation Comments UA Color (test code = Light Yellow UA Color) *NA*(07/22/14 1:46 PM) [facility] [id number] 18:46:00 Test Item Value Reference Range Interpretation Comments Magnesium Lvl (test code = Magnesium 1.8 1.8-2.4 Lvl) [facility][id number] 18:46:00 Test Item Value Reference Range Interpretation Comments AGAP (test code = AGAP) 13.2 10.0-20.0 [facility] HealthBrstysdLUIEBLPHXRZT0111-55-25 18:46:00 Test Item Value Reference Range Interpretation Comments B/C Ratio (test code = B/C Ratio) 18 6-25 [facility] HealthBucpiuxAWDRPMUFRWJQ2062-69-46 18:46:00 Test Item Value Reference Range Interpretation Comments A/G Ratio (test code = A/G Ratio) 1.1 0.7-1.6 [facility] HealthBrfsdtvRTLLEURIXPHS4377-41-08 18:46:00 Test Item Value Reference Range Interpretation Comments Globulin (test code = Globulin) 3.3 2.0-4.0 [facility] HealthSeqnyekTEWNIVFOZVCX6546-57-10 18:46:00 Test Item Value Reference Range Interpretation Comments eGFR (test code = eGFR) 99 [facility] HealthQdnwwauDKZLVXDSEVVR8382-94-58 18:46:00 Test Item Value Reference Range Interpretation Comments Calcium Lvl (test code = Calcium Lvl) 9.0 8.5-10.5 [facility] HealthKcmjlmySYCEYQACYKBI5559-04-56 18:46:00 Test Item Value Reference Range Interpretation Comments Chloride Lvl (test code = Chloride Lvl) 106 95-109 [facility] HealthRwvghgxLCOVKPGQGZKU9988-21-84 18:46:00 Test Item Value Reference Range Interpretation Comments Creatinine Lvl (test code = Creatinine 0.9 0.5-1.4 Lvl) [facility] HealthBjpaggwPOJLUKMDJRCW4609-00-07 18:46:00 Test Item Value Reference Range Interpretation Comments Potassium Lvl (test code = Potassium 4.2 3.5-5.1 Lvl) [facility] HealthOoykvaaZWLBOUNZTUCY6401-37-08 18:46:00 Test Item Value Reference Range Interpretation Comments Sodium Lvl (test code = Sodium Lvl) 139 135-145 [facility] HealthQxtcqubMPEYSHUYVHNA2812-38-37 18:46:00 Test Item Value Reference Range Interpretation Comments CO2 (test code = CO2) 24 24-32 [facility] HealthEwpgnfrNFLEAXHSBARF7078-03-50 18:46:00 Test Item Value Reference Range Interpretation Comments BUN (test code = BUN) 16 7-22 [facility] HealthAvramksAGJROVHVIDUX2388-73-80 18:46:00 Test Item Value Reference Range Interpretation Comments Glucose Lvl (test code = Glucose Lvl) 141 70-99 [facility] HealthPnklbrhBCOPSPKUAEGJ4790-61-60 18:46:00 Test Item Value Reference Range Interpretation Comments Albumin Lvl (test code = Albumin Lvl) 3.6 3.5-5.0 [facility] HealthJjrrmgwWFKMYQPTRGRX3171-61-09 18:46:00 Test Item Value Reference Range Interpretation Comments Alk Phos (test code = Alk Phos) 65 39-136 [facility] HealthDmmdeocHMEJDDKAXFBV7638-30-30 18:46:00 Test Item Value Reference Range Interpretation Comments Bili Total (test code = Bili Total) 0.3 0.2-1.3 [facility] HealthAjtgfiuXYNXPDAITIMM1760-62-97 18:46:00 Test Item Value Reference Range Interpretation Comments ALT (test code = ALT) 100 See_Comment [Auto mated message] The system which ge nerated this result transmit elizabeth reference range : <=65. The reference range was not used to interpr et this result as lukas l/abnormal. [facility] HealthUhuivelYNFLGOJBSIEJ4627-38-91 18:46:00 Test Item Value Reference Range Interpretation Comments AST (test code = AST) 53 See_Comment [Auto mated message] The system which ge nerated this result transmit elizabeth reference range : <=37. The reference range was not used to interpr et this result as lukas l/abnormal. [facility] HealthGuqyqxmYJSRLWTCHCNW5601-57-30 18:46:00 Test Item Value Reference Range Interpretation Comments Total Protein (test code = Total 6.9 6.4-8.4 Protein) [facility]KdefnicCXYKRNVYHA2643-52-20 18:46:00 Test Item Value Reference Range Interpretation Comments Eosinophils (test code = 4.2 See_Comment [A utomated message] The Eosinophils) system which ge nerated this result tra nsmitted reference range : <=4.0. The reference r mitra was not used to int erpret this result as normal/abnormal . [id number] 18:46:00 Test Item Value Reference Range Interpretation Comments Segs (test code = Segs) 56.4 45.0-75.0 [facility] ResourcesDdsrvktNFCDEFTXEI1449-16-69 18:46:00 Test Item Value Reference Range Interpretation Comments Monocytes (test code = Monocytes) 10.3 2.0-12.0 [facility] ResourcesBotjyqpEEEMHVWSIB7004-29-14 18:46:00 Test Item Value Reference Range Interpretation Comments Lymphocytes (test code = Lymphocytes) 28.0 20.0-40.0 [place] [id number] 18:46:00 Test Item Value Reference Range Interpretation Comments Monocytes # (test code 0.5 See_Comment [Aut omated message] The = Monocytes #) system which generated this result tra nsmitted reference range : <=0.8. The reference r mitra was not used to int erpret this result as normal/abnormal . [facility]YyhrbqsQPNOXNTUYD8159-86-31 18:46:00 Test Item Value Reference Range Interpretation Comments Basophils (test code = 1.1 See_Comment [Aut omated message] The Basophils) system which ge nerated this result tra nsmitted reference range : <=1.0. The reference r mitra was not used to int erpret this result as normal/abnormal . [facility] ResourcesBmudaerFERHZPTXDX2667-12-31 18:46:00 Test Item Value Reference Range Interpretation Comments Lymphocytes # (test code = Lymphocytes 1.5 1.0-5.5 #) [facility] ResourcesAobztabSASBPHGSMX6857-75-21 18:46:00 Test Item Value Reference Range Interpretation Comments Segs-Bands # (test code = Segs-Bands #) 2.9 1.5-8.1 [facility]YeitxzhFHZGOOOHWF4582-37-43 18:46:00 Test Item Value Reference Range Interpretation Comments Eosinophils # (test code 0.2 See_Comment [A utomated message] The = Eosinophils #) system whic h generated this result tra nsmitted reference range : <=0.5. The reference r mitra was not used to int erpret this result as normal/abnormal . [facility]BrvhawiRTDEMCLFHB4372-28-46 18:46:00 Test Item Value Reference Range Interpretation Comments Basophils # (test code 0.1 See_Comment [Aut omated message] The = Basophils #) system which generated this result tra nsmitted reference range : <=0.2. The reference r mitra was not used to int erpret this result as normal/abnormal . [facility]MswfmepUEOEZWLLGI5012-40-50 18:46:00 Test Item Value Reference Range Interpretation Comments PT (test code = PT) 11.2 s 12.0-14.7 [facility] ResourcesNippjszAQVIMBGOSB3960-51-96 18:46:00 Test Item Value Reference Range Interpretation Comments INR (test code = INR) 0.82 0.85-1.17 [facility] ResourcesMtqeyitFGAYFINVSZ8429-58-16 18:46:00 Test Item Value Reference Range Interpretation Comments PTT (test code = PTT) 28.6 s 22.9-35.8 [facility] ResourcesSzkigksHJOASKOYPQ8718-64-90 18:46:00 Test Item Value Reference Range Interpretation Comments MPV (test code = MPV) 8.1 7.4-10.4 [facility] ResourcesYkvqdkjOBQSNORGCD8374-85-08 18:46:00 Test Item Value Reference Range Interpretation Comments Platelet (test code = Platelet) 301 133-450 [facility] ResourcesGuezudgVGJQHBNXCD0572-20-01 18:46:00 Test Item Value Reference Range Interpretation Comments RDW (test code = RDW) 14.5 11.5-14.5 [facility]XqlwitnJKPPSWIINQ7615-44-62 18:46:00 Test Item Value Reference Range Interpretation Comments RBC (test code = RBC) 4.84 4.70-6.10 [facility]KgxlrjrJZPZQKBBLT7884-57-63 18:46:00 Test Item Value Reference Range Interpretation Comments Hgb (test code = Hgb) 14.4 14.0-18.0 [facility] ResourcesFjxkjzoTFXJUIFGUA6032-03-26 18:46:00 Test Item Value Reference Range Interpretation Comments WBC (test code = WBC) 5.2 3.7-10.4 [facility] ResourcesEarnkjdEXKVEPWPVT1031-24-51 18:46:00 Test Item Value Reference Range Interpretation Comments MCH (test code = MCH) 29.8 pg 27.0-31.0 [facility] ResourcesVdbyxrmRYINOFYHOX0722-28-56 18:46:00 Test Item Value Reference Range Interpretation Comments MCV (test code = MCV) 92.0 80.0-94.0 [facility] HospitalTcjxgkrYOVEIZTACT4502-51-18 18:46:00 Test Item Value Reference Range Interpretation Comments Hct (test code = Hct) 44.5 42.0-54.0 [facility] ResourcesTzetoucBJLDNXRIOZ1007-45-54 18:46:00 Test Item Value Reference Range Interpretation Comments MCHC (test code = MCHC) 32.4 32.0-36.[address] [facility]YAMGJKIRNE3588-19-92 18:46:00 Test Item Value Reference Range Interpretation Comments [place]-Hep C Ab (test Negative *NA*(07/22/14 code = [place]-Hep C 1:46 PM) Ab) [facility] AND [id number] 18:46:00 Test Item Value Reference Range Interpretation Comments UA Urobilinogen (test code = UA <=1.0 mg/dL 0.1-1.0 Urobilinogen) [facility] AND [id number] 18:46:00 Test Item Value Reference Range Interpretation Comments UA Sq Epi (test code = UA Sq Epi) None Seen [facility] AND [id number] 18:46:00 Test Item Value Reference Range Interpretation Comments UA Leuk Est (test Negative (07/22/14 1:46 code = UA Leuk Est) PM) [facility] AND [id number] 18:46:00 Test Item Value Reference Range Interpretation Comments UA Nitrite (test code Negative (07/22/14 1:46 = UA Nitrite) PM) [facility] AND [id number] 18:46:00 Test Item Value Reference Range Interpretation Comments UA Blood (test code = Negative (07/22/14 1:46 UA Blood) PM) [facility] AND [id number] 18:46:00 Test Item Value Reference Range Interpretation Comments UA Ketones (test code = UA Negative mg/dL Ketones) [facility] AND [id number] 18:46:00 Test Item Value Reference Range Interpretation Comments UA Bili (test code = Negative *NA*(07/22/14 UA Bili) 1:46 PM) [facility] AND [id number] 18:46:00 Test Item Value Reference Range Interpretation Comments UA Bacteria (test code = UA Occasional /HPF Bacteria) [facility] AND [id number] 18:46:00 Test Item Value Reference Range Interpretation Comments UA RBC (test code = no gt See_Comment [Automa elizabeth message] The UA RBC) system which ge nerated this result transmit elizabeth reference range : <=2. The reference range was not used to interpr et this result as lukas l/abnormal. [facility] AND [id number] 18:46:00 Test Item Value Reference Range Interpretation Comments UA WBC (test code = 1 See_Comment [Automa elizabeth message] The UA WBC) system which ge nerated this result transmit elizabeth reference range : <=5. The reference range was not used to interpr et this result as lukas l/abnormal. [facility] AND [id number] 18:46:00 Test Item Value Reference Range Interpretation Comments UA Glucose (test code = UA Glucose) 30 mg/dL [facility] AND [id number] 18:46:00 Test Item Value Reference Range Interpretation Comments UA Protein (test code = UA Negative mg/dL Protein) [facility] AND [id number] 18:46:00 Test Item Value Reference Range Interpretation Comments UA pH (test code = UA pH) 6.5 5.0-8.0 [facility] AND [id number] 18:46:00 Test Item Value Reference Range Interpretation Comments UA Turbidity (test code = Clear (07/22/14 1:46 UA Turbidity) PM) [facility] AND [id number] 18:46:00 Test Item Value Reference Range Interpretation Comments UA Spec Grav (test code = UA Spec Grav) 1.010 [facility] AND [id number] 18:46:00 Test Item Value Reference Range Interpretation Comments UA Color (test code = Light Yellow UA Color) *NA*(07/22/14 1:46 PM) [facility] [id number] 18:46:00 Test Item Value Reference Range Interpretation Comments Magnesium Lvl (test code = Magnesium 1.8 1.8-2.4 Lvl) [facility] HealthFfkdbolDHGFCJAVNXTV3259-74-04 18:46:00 Test Item Value Reference Range Interpretation Comments AGAP (test code = AGAP) 13.2 10.0-20.0 [facility] HealthFqaboqnVXHEMDITYXIF2509-20-25 18:46:00 Test Item Value Reference Range Interpretation Comments B/C Ratio (test code = B/C Ratio) 18 6-25 [facility] HealthVeyouxlPLWRBBJWFVDN9281-01-34 18:46:00 Test Item Value Reference Range Interpretation Comments A/G Ratio (test code = A/G Ratio) 1.1 0.7-1.6 [facility] HealthZevoiqjIZTYQCMVYGQQ3176-26-27 18:46:00 Test Item Value Reference Range Interpretation Comments Globulin (test code = Globulin) 3.3 2.0-4.0 [facility] HealthNudczpmSXIKPJDMEBNH4456-94-66 18:46:00 Test Item Value Reference Range Interpretation Comments eGFR (test code = eGFR) 99 [facility] HealthCelgxkbJWFESMHBHIHB2417-37-20 18:46:00 Test Item Value Reference Range Interpretation Comments Calcium Lvl (test code = Calcium Lvl) 9.0 8.5-10.5 [facility] HealthNdavdxiWFLRRYIPKLWN9771-64-43 18:46:00 Test Item Value Reference Range Interpretation Comments Chloride Lvl (test code = Chloride Lvl) 106 95-109 [facility] HealthMtgbwlqZYBAJNYCFSHZ3128-81-85 18:46:00 Test Item Value Reference Range Interpretation Comments Creatinine Lvl (test code = Creatinine 0.9 0.5-1.4 Lvl) [facility] HealthBvdtvkeYXBCPRPXUJAB4386-55-04 18:46:00 Test Item Value Reference Range Interpretation Comments Potassium Lvl (test code = Potassium 4.2 3.5-5.1 Lvl) [facility] HealthJobppiiYFFFLZGSXWQL7424-66-55 18:46:00 Test Item Value Reference Range Interpretation Comments Sodium Lvl (test code = Sodium Lvl) 139 135-145 [facility] HealthWlvkfwcDIDUTPAAOVVW4842-03-01 18:46:00 Test Item Value Reference Range Interpretation Comments CO2 (test code = CO2) 24 24-32 [facility] HealthDnipleuRLIKSOIWBXPZ4091-06-68 18:46:00 Test Item Value Reference Range Interpretation Comments BUN (test code = BUN) 16 7-22 [facility] HealthVinnbeoMDNQXGZCGWTX2932-55-84 18:46:00 Test Item Value Reference Range Interpretation Comments Glucose Lvl (test code = Glucose Lvl) 141 70-99 [facility] HealthCnbzqqtXQQHKXKKJQPC2467-34-77 18:46:00 Test Item Value Reference Range Interpretation Comments Albumin Lvl (test code = Albumin Lvl) 3.6 3.5-5.0 [facility] HealthNnapqeaYSXHQYUXPWBJ3499-67-38 18:46:00 Test Item Value Reference Range Interpretation Comments Alk Phos (test code = Alk Phos) 65 39-136 [facility] HealthGxkugcsCHEWPWYZSJXC1461-93-15 18:46:00 Test Item Value Reference Range Interpretation Comments Bili Total (test code = Bili Total) 0.3 0.2-1.3 [facility] Health[id number] 18:46:00 Test Item Value Reference Range Interpretation Comments ALT (test code = ALT) 100 See_Comment [Auto mated message] The system which ge nerated this result transmit elizabeth reference range : <=65. The reference range was not used to interpr et this result as lukas l/abnormal. [facility] HealthEvhlrfxUJZNBYPWBAND6194-69-98 18:46:00 Test Item Value Reference Range Interpretation Comments AST (test code = AST) 53 See_Comment [Auto mated message] The system which ge nerated this result transmit elizabeth reference range : <=37. The reference range was not used to interpr et this result as lukas l/abnormal. [facility] HealthNxqjiizOWVOHBJSFKNN0964-75-50 18:46:00 Test Item Value Reference Range Interpretation Comments Total Protein (test code = Total 6.9 6.4-8.4 Protein) [facility]UwvudzpMPSZCJSYOX0677-59-81 18:46:00 Test Item Value Reference Range Interpretation Comments Eosinophils (test code = 4.2 See_Comment [A utomated message] The Eosinophils) system which ge nerated this result tra nsmitted reference range : <=4.0. The reference r mitra was not used to int erpret this result as normal/abnormal . [id number] 18:46:00 Test Item Value Reference Range Interpretation Comments Segs (test code = Segs) 56.4 45.0-75.0 [facility] ResourcesEhqepouULLECRDVFT6385-47-48 18:46:00 Test Item Value Reference Range Interpretation Comments Monocytes (test code = Monocytes) 10.3 2.0-12.0 [facility] ResourcesOayxnzmKVFOIOKRXZ6090-02-16 18:46:00 Test Item Value Reference Range Interpretation Comments Lymphocytes (test code = Lymphocytes) 28.0 20.0-40.0 [facility] ResourcesDdvwssdGNUTINLEGA0556-43-84 18:46:00 Test Item Value Reference Range Interpretation Comments Monocytes # (test code 0.5 See_Comment [Aut omated message] The = Monocytes #) system which generated this result tra nsmitted reference range : <=0.8. The reference r mitra was not used to int erpret this result as normal/abnormal . [facility] ResourcesYkciozqMKCBVSBEIW7788-87-59 18:46:00 Test Item Value Reference Range Interpretation Comments Basophils (test code = 1.1 See_Comment [Aut omated message] The Basophils) system which ge nerated this result tra nsmitted reference range : <=1.0. The reference r mitra was not used to int erpret this result as normal/abnormal . [facility] ResourcesEgesppdAPJFYTCVTO1960-21-68 18:46:00 Test Item Value Reference Range Interpretation Comments Lymphocytes # (test code = Lymphocytes 1.5 1.0-5.5 #) [facility] ResourcesDyfgqjaMYXOGVQHXV9524-10-63 18:46:00 Test Item Value Reference Range Interpretation Comments Segs-Bands # (test code = Segs-Bands #) 2.9 1.5-8.1 [facility] ResourcesGxfcofsGCTBBRZLDI1327-07-87 18:46:00 Test Item Value Reference Range Interpretation Comments Eosinophils # (test code 0.2 See_Comment [A utomated message] The = Eosinophils #) system whic h generated this result tra nsmitted reference range : <=0.5. The reference r mitra was not used to int erpret this result as normal/abnormal . [facility] ResourcesTcsiuuoWQGQPBGUAR6700-77-96 18:46:00 Test Item Value Reference Range Interpretation Comments Basophils # (test code 0.1 See_Comment [Aut omated message] The = Basophils #) system which generated this result tra nsmitted reference range : <=0.2. The reference r mitra was not used to int erpret this result as normal/abnormal . [facility] ResourcesFsrqwwlBPDRDYRXSE2820-89-35 18:46:00 Test Item Value Reference Range Interpretation Comments PT (test code = PT) 11.2 s 12.0-14.7 [facility] ResourcesVlvfsltAAUPHEILAD9045-00-50 18:46:00 Test Item Value Reference Range Interpretation Comments INR (test code = INR) 0.82 0.85-1.17 [facility] ResourcesTbdvumzXOYPZZAXLR3889-92-02 18:46:00 Test Item Value Reference Range Interpretation Comments PTT (test code = PTT) 28.6 s 22.9-35.8 [facility] ResourcesFukfecoHDTQAYTJLW6769-51-26 18:46:00 Test Item Value Reference Range Interpretation Comments MPV (test code = MPV) 8.1 7.4-10.4 [facility] ResourcesQblkbtzYEUOYFZCJR8523 18:46:00 Test Item Value Reference Range Interpretation Comments Platelet (test code = Platelet) 301 133-450 [facility] ResourcesNwuflclHZMLCONJEP6209-59-13 18:46:00 Test Item Value Reference Range Interpretation Comments RDW (test code = RDW) 14.5 11.5-14.5 [facility] Re[id number] 18:46:00 Test Item Value Reference Range Interpretation Comments RBC (test code = RBC) 4.84 4.70-6.10 [facility] ResourcesLtzaexgPQJAAXHWFG0311-07-94 18:46:00 Test Item Value Reference Range Interpretation Comments Hgb (test code = Hgb) 14.4 14.0-18.0 [facility] ResourcesLtlhmjeFISSEFMUCA5447-41-76 18:46:00 Test Item Value Reference Range Interpretation Comments WBC (test code = WBC) 5.2 3.7-10.[address] [facility]XsdcakxXOEQHUGILX5136-09-34 18:46:00 Test Item Value Reference Range Interpretation Comments MCH (test code = MCH) 29.8 pg 27.0-31.0 [facility]IwnpveyHMEZIRGBAL4181-10-23 18:46:00 Test Item Value Reference Range Interpretation Comments MCV (test code = MCV) 92.0 80.0-94.0 [facility] HospitalRbdlnwmZITPOXEGEQ6363-81-90 18:46:00 Test Item Value Reference Range Interpretation Comments Hct (test code = Hct) 44.5 42.0-54.[address] [facility]KewjyrpWUVLTXAPFH0587-18-49 18:46:00 Test Item Value Reference Range Interpretation Comments MCHC (test code = MCHC) 32.4 32.0-36.[address] [facility]XqcjotkBPDTVAFXYG9858-76-40 18:46:00 Test Item Value Reference Range Interpretation Comments [place]-Hep C Ab (test Negative *NA*(07/22/14 code = [place]-Hep C 1:46 PM) Ab) [facility] AND [id number] 18:46:00 Test Item Value Reference Range Interpretation Comments UA Urobilinogen (test code = UA <=1.0 mg/dL 0.1-1.0 Urobilinogen) [facility] AND [id number] 18:46:00 Test Item Value Reference Range Interpretation Comments UA Sq Epi (test code = UA Sq Epi) None Seen [facility] AND [id number] 18:46:00 Test Item Value Reference Range Interpretation Comments UA Leuk Est (test Negative (07/22/14 1:46 code = UA Leuk Est) PM) [facility] AND [id number] 18:46:00 Test Item Value Reference Range Interpretation Comments UA Nitrite (test code Negative (07/22/14 1:46 = UA Nitrite) PM) [facility] AND [id number] 18:46:00 Test Item Value Reference Range Interpretation Comments UA Blood (test code = Negative (07/22/14 1:46 UA Blood) PM) [facility] AND [id number] 18:46:00 Test Item Value Reference Range Interpretation Comments UA Ketones (test code = UA Negative mg/dL Ketones) [facility] AND [id number] 18:46:00 Test Item Value Reference Range Interpretation Comments UA Bili (test code = Negative *NA*(07/22/14 UA Bili) 1:46 PM) [facility] [id number] 18:46:00 Test Item Value Reference Range Interpretation Comments UA Bacteria (test code = UA Occasional /HPF Bacteria) [facility] [id number] 18:46:00 Test Item Value Reference Range Interpretation Comments UA RBC (test code = no gt See_Comment [Automa elizabeth message] The UA RBC) system which ge nerated this result transmit elizabeth reference range : <=2. The reference range was not used to interpr et this result as lukas l/abnormal. [facility] AND [id number] 18:46:00 Test Item Value Reference Range Interpretation Comments UA WBC (test code = 1 See_Comment [Automa elizabeth message] The UA WBC) system which ge nerated this result transmit elizabeth reference range : <=5. The reference range was not used to interpr et this result as lukas l/abnormal. [facility] [id number] 18:46:00 Test Item Value Reference Range Interpretation Comments UA Glucose (test code = UA Glucose) 30 mg/dL [facility] AND [id number] 18:46:00 Test Item Value Reference Range Interpretation Comments UA Protein (test code = UA Negative mg/dL Protein) [facility] [id number] 18:46:00 Test Item Value Reference Range Interpretation Comments UA pH (test code = UA pH) 6.5 5.0-8.0 [facility] AND [id number] 18:46:00 Test Item Value Reference Range Interpretation Comments UA Turbidity (test code = Clear (07/22/14 1:46 UA Turbidity) PM) [facility] [id number] 18:46:00 Test Item Value Reference Range Interpretation Comments UA Spec Grav (test code = UA Spec Grav) 1.010 [facility] [id number] 18:46:00 Test Item Value Reference Range Interpretation Comments UA Color (test code = Light Yellow UA Color) *NA*(07/22/14 1:46 PM) [facility] [id number] 18:46:00 Test Item Value Reference Range Interpretation Comments Magnesium Lvl (test code = Magnesium 1.8 1.8-2.4 Lvl) [facility] HealthKvpfsnkQPEYKJQQIFOP1084-06-78 18:46:00 Test Item Value Reference Range Interpretation Comments AGAP (test code = AGAP) 13.2 10.0-20.0 [facility] HealthBoqoasaCUTKJRUNLZUM1173-10-69 18:46:00 Test Item Value Reference Range Interpretation Comments B/C Ratio (test code = B/C Ratio) 18 6-25 [facility] HealthUfeweokGVRZPEPPXVWT4815-03-04 18:46:00 Test Item Value Reference Range Interpretation Comments A/G Ratio (test code = A/G Ratio) 1.1 0.7-1.6 [facility] HealthYpmaefpFIRYQMQAHQDE4013-01-44 18:46:00 Test Item Value Reference Range Interpretation Comments Globulin (test code = Globulin) 3.3 2.0-4.0 [facility] HealthPnzmktgNUXOJOPBSBPB0858-81-01 18:46:00 Test Item Value Reference Range Interpretation Comments eGFR (test code = eGFR) 99 [facility] HealthImjhohlESUDUAJIBPBW3122-48-77 18:46:00 Test Item Value Reference Range Interpretation Comments Calcium Lvl (test code = Calcium Lvl) 9.0 8.5-10.5 [facility] HealthDenfjewBTCWVBZCVUTR6045-66-46 18:46:00 Test Item Value Reference Range Interpretation Comments Chloride Lvl (test code = Chloride Lvl) 106 95-109 [facility] HealthCdtmctkYDTRFOJOGZVW1807-71-93 18:46:00 Test Item Value Reference Range Interpretation Comments Creatinine Lvl (test code = Creatinine 0.9 0.5-1.4 Lvl) [facility] HealthWseqocoTJCLOZHNHVSP6288-29-54 18:46:00 Test Item Value Reference Range Interpretation Comments Potassium Lvl (test code = Potassium 4.2 3.5-5.1 Lvl) [facility] HealthVnvqtdnFUKAUNPWLQNU2620-51-85 18:46:00 Test Item Value Reference Range Interpretation Comments Sodium Lvl (test code = Sodium Lvl) 139 135-145 [facility] HealthYrtmjdoKICGOYKRZHFQ4941-62-87 18:46:00 Test Item Value Reference Range Interpretation Comments CO2 (test code = CO2) 24 24-32 [facility] HealthBmehrbyHZJHTNIENGBY1649-99-68 18:46:00 Test Item Value Reference Range Interpretation Comments BUN (test code = BUN) 16 7-22 [facility] HealthWtzsfyvWERBWZMWDCXN3245-90-27 18:46:00 Test Item Value Reference Range Interpretation Comments Glucose Lvl (test code = Glucose Lvl) 141 70-99 [facility] HealthMwracotXVPXKGCRHDFA9666-23-45 18:46:00 Test Item Value Reference Range Interpretation Comments Albumin Lvl (test code = Albumin Lvl) 3.6 3.5-5.0 [facility] HealthYhaynqqCWJZHFTAQVXJ9239-24-55 18:46:00 Test Item Value Reference Range Interpretation Comments Alk Phos (test code = Alk Phos) 65 39-136 [facility] HealthXkbjuwgZHRXUTJRJLOF4715-61-18 18:46:00 Test Item Value Reference Range Interpretation Comments Bili Total (test code = Bili Total) 0.3 0.2-1.3 [facility] HealthWoftxsyIFINZMPJCCDK1193-86-49 18:46:00 Test Item Value Reference Range Interpretation Comments ALT (test code = ALT) 100 See_Comment [Auto mated message] The system which ge nerated this result transmit elizabeth reference range : <=65. The reference range was not used to interpr et this result as lukas l/abnormal. [facility] HealthFvzwfcnTXVGKFARAGRG8661-45-35 18:46:00 Test Item Value Reference Range Interpretation Comments AST (test code = AST) 53 See_Comment [Auto mated message] The system which ge nerated this result transmit elizabeth reference range : <=37. The reference range was not used to interpr et this result as lukas l/abnormal. [facility] HealthRtqcxueQBVZCBHTFNPX4274-31-89 18:46:00 Test Item Value Reference Range Interpretation Comments Total Protein (test code = Total 6.9 6.4-8.4 Protein) [facility] ResourcesQefnumlDIAHCVOPMR3408-04-05 18:46:00 Test Item Value Reference Range Interpretation Comments Eosinophils (test code = 4.2 See_Comment [A utomated message] The Eosinophils) system which ge nerated this result tra nsmitted reference range : <=4.0. The reference r mitra was not used to int erpret this result as normal/abnormal . [facility] ResourcesBekxgnuYZXAAIJVUZ1407-87-55 18:46:00 Test Item Value Reference Range Interpretation Comments Segs (test code = Segs) 56.4 45.0-75.0 [facility] ResourcesXrayjnlKENTZAILVG5603-16-13 18:46:00 Test Item Value Reference Range Interpretation Comments Monocytes (test code = Monocytes) 10.3 2.0-12.0 [facility] ResourcesRkhwzrwNFRECAZSND7896-90-60 18:46:00 Test Item Value Reference Range Interpretation Comments Lymphocytes (test code = Lymphocytes) 28.0 20.0-40.0 [facility] ResourcesOwokhanEBHCLCVOBT1060-78-09 18:46:00 Test Item Value Reference Range Interpretation Comments Monocytes # (test code 0.5 See_Comment [Aut omated message] The = Monocytes #) system which generated this result tra nsmitted reference range : <=0.8. The reference r mitra was not used to int erpret this result as normal/abnormal . [facility] ResourcesFjqlzwpSMDDSKDASO3390-55-21 18:46:00 Test Item Value Reference Range Interpretation Comments Basophils (test code = 1.1 See_Comment [Aut omated message] The Basophils) system which ge nerated this result tra nsmitted reference range : <=1.0. The reference r mitra was not used to int erpret this result as normal/abnormal . [facility] ResourcesLuerjriBCOCWHCMHD3825-97-70 18:46:00 Test Item Value Reference Range Interpretation Comments Lymphocytes # (test code = Lymphocytes 1.5 1.0-5.5 #) [facility] ResourcesRmdzbzwEDJYCTICIH1920-25-30 18:46:00 Test Item Value Reference Range Interpretation Comments Segs-Bands # (test code = Segs-Bands #) 2.9 1.5-8.1 [facility] ResourcesUysglrsCAWEWRTPLU3256-36-28 18:46:00 Test Item Value Reference Range Interpretation Comments Eosinophils # (test code 0.2 See_Comment [A utomated message] The = Eosinophils #) system whic h generated this result tra nsmitted reference range : <=0.5. The reference r mitra was not used to int erpret this result as normal/abnormal . [facility] ResourcesUlezjgvRABSJPMSKI9114-54-57 18:46:00 Test Item Value Reference Range Interpretation Comments Basophils # (test code 0.1 See_Comment [Aut omated message] The = Basophils #) system which generated this result tra nsmitted reference range : <=0.2. The reference r mitra was not used to int erpret this result as normal/abnormal . [facility] ResourcesAuehavcCBVNNPNKOS3676-26-80 18:46:00 Test Item Value Reference Range Interpretation Comments PT (test code = PT) 11.2 s 12.0-14.7 [facility]PclwqclPEXFBYJBEY3295-06-46 18:46:00 Test Item Value Reference Range Interpretation Comments INR (test code = INR) 0.82 0.85-1.17 [facility] ResourcesUekutfrILWVZGMQFB6755-31-34 18:46:00 Test Item Value Reference Range Interpretation Comments PTT (test code = PTT) 28.6 s 22.9-35.8 [facility] ResourcesZhsunnlDTKHUHXDBD4673-15-43 18:46:00 Test Item Value Reference Range Interpretation Comments MPV (test code = MPV) 8.1 7.4-10.4 [place] [id number] 18:46:00 Test Item Value Reference Range Interpretation Comments Platelet (test code = Platelet) 301 133-450 [facility] ResourcesIcnlprtWNONFOHMUD9690-58-95 18:46:00 Test Item Value Reference Range Interpretation Comments RDW (test code = RDW) 14.5 11.5-14.5 [facility] ResourcesCvzmbuqAFHJZMIKXV5418-75-62 18:46:00 Test Item Value Reference Range Interpretation Comments RBC (test code = RBC) 4.84 4.70-6.10 [facility] ResourcesSyslgnhHPCYSFTBUS3157-44-19 18:46:00 Test Item Value Reference Range Interpretation Comments Hgb (test code = Hgb) 14.4 14.0-18.0 [facility] ResourcesYfhkwhjTOHMGRJEKI1368-22-86 18:46:00 Test Item Value Reference Range Interpretation Comments WBC (test code = WBC) 5.2 3.7-10.4 [facility] ResourcesHwjitnnVNIWPBJYQB4072-70-32 18:46:00 Test Item Value Reference Range Interpretation Comments MCH (test code = MCH) 29.8 pg 27.0-31.0 [facility] ResourcesYyzatmoGBLOCWZANL8269-90-92 18:46:00 Test Item Value Reference Range Interpretation Comments MCV (test code = MCV) 92.0 80.0-94.0 [place] [address]-06-09 18:46:00 Test Item Value Reference Range Interpretation Comments Hct (test code = Hct) 44.5 42.0-54.0 [facility] ResourcesTlgvlsePEXODMVPYY0033-85-05 18:46:00 Test Item Value Reference Range Interpretation Comments MCHC (test code = MCHC) 32.4 32.0-36.0 [facility] PvtopjgGFOTHRIDBJ8015-50-11 18:46:00 Test Item Value Reference Range Interpretation Comments [place]-Hep C Ab (test Negative *NA*(07/22/14 code = [place]-Hep C 1:46 PM) Ab) [facility] [id number] 18:46:00 Test Item Value Reference Range Interpretation Comments UA Urobilinogen (test code = UA <=1.0 mg/dL 0.1-1.0 Urobilinogen) [facility] [id number] 18:46:00 Test Item Value Reference Range Interpretation Comments UA Sq Epi (test code = UA Sq Epi) None Seen [facility] AND [id number] 18:46:00 Test Item Value Reference Range Interpretation Comments UA Leuk Est (test Negative (07/22/14 1:46 code = UA Leuk Est) PM) [facility] [id number] 18:46:00 Test Item Value Reference Range Interpretation Comments UA Nitrite (test code Negative (07/22/14 1:46 = UA Nitrite) PM) [facility] [id number] 18:46:00 Test Item Value Reference Range Interpretation Comments UA Blood (test code = Negative (07/22/14 1:46 UA Blood) PM) [facility] [id number] 18:46:00 Test Item Value Reference Range Interpretation Comments UA Ketones (test code = UA Negative mg/dL Ketones) [facility] [id number] 18:46:00 Test Item Value Reference Range Interpretation Comments UA Bili (test code = Negative *NA*(07/22/14 UA Bili) 1:46 PM) [facility] [id number] 18:46:00 Test Item Value Reference Range Interpretation Comments UA Bacteria (test code = UA Occasional /HPF Bacteria) [facility] [id number] 18:46:00 Test Item Value Reference Range Interpretation Comments UA RBC (test code = no gt See_Comment [Automa elizabeth message] The UA RBC) system which ge nerated this result transmit elizabeth reference range : <=2. The reference range was not used to interpr et this result as lukas l/abnormal. [facility] AND [id number] 18:46:00 Test Item Value Reference Range Interpretation Comments UA WBC (test code = 1 See_Comment [Automa elizabeth message] The UA WBC) system which ge nerated this result transmit elizabeth reference range : <=5. The reference range was not used to interpr et this result as lukas l/abnormal. [facility] AND [id number] 18:46:00 Test Item Value Reference Range Interpretation Comments UA Glucose (test code = UA Glucose) 30 mg/dL [facility] AND [id number] 18:46:00 Test Item Value Reference Range Interpretation Comments UA Protein (test code = UA Negative mg/dL Protein) [facility] AND [id number] 18:46:00 Test Item Value Reference Range Interpretation Comments UA pH (test code = UA pH) 6.5 5.0-8.0 [facility] AND [id number] 18:46:00 Test Item Value Reference Range Interpretation Comments UA Turbidity (test code = Clear (07/22/14 1:46 UA Turbidity) PM) [facility] AND [id number] 18:46:00 Test Item Value Reference Range Interpretation Comments UA Spec Grav (test code = UA Spec Grav) 1.010 [facility] AND [id number] 18:46:00 Test Item Value Reference Range Interpretation Comments UA Color (test code = Light Yellow UA Color) *NA*(07/22/14 1:46 PM) [facility] [id number] 18:46:00 Test Item Value Reference Range Interpretation Comments Magnesium Lvl (test code = Magnesium 1.8 1.8-2.4 Lvl) [facility] CenterDgpysaqMARWVDCVSTFY0137-66-11 18:46:00 Test Item Value Reference Range Interpretation Comments AGAP (test code = AGAP) 13.2 10.0-20.[address] [facility] CenterKhaevvyMYRRTFGBHQMJ4234-91-36 18:46:00 Test Item Value Reference Range Interpretation Comments B/C Ratio (test code = B/C Ratio) 18 6-25 [facility] HealthYniykprUQIQSSHUKRED5853-04-15 18:46:00 Test Item Value Reference Range Interpretation Comments A/G Ratio (test code = A/G Ratio) 1.1 0.7-1.6 [facility] HealthOpkplpiDUFKYXPQGDAU6030-99-72 18:46:00 Test Item Value Reference Range Interpretation Comments Globulin (test code = Globulin) 3.3 2.0-4.0 [facility] HealthQtqyzzeBQTWUOIBCGJJ0431-32-33 18:46:00 Test Item Value Reference Range Interpretation Comments eGFR (test code = eGFR) 99 [facility] HealthOedpawbEPCYIGLJKNUW9837-09-07 18:46:00 Test Item Value Reference Range Interpretation Comments Calcium Lvl (test code = Calcium Lvl) 9.0 8.5-10.5 [facility] HealthJjqtpxjFEGQPAXPYDYG3538-42-18 18:46:00 Test Item Value Reference Range Interpretation Comments Chloride Lvl (test code = Chloride Lvl) 106 95-109 [facility] HealthUkgarveMUXHEMQVECBB9237-61-00 18:46:00 Test Item Value Reference Range Interpretation Comments Creatinine Lvl (test code = Creatinine 0.9 0.5-1.4 Lvl) [facility] HealthZpqscabZYRCGZBILMII6065-80-66 18:46:00 Test Item Value Reference Range Interpretation Comments Potassium Lvl (test code = Potassium 4.2 3.5-5.1 Lvl) [facility] HealthCfxthpaOWNMXVUMJGLI3044-86-18 18:46:00 Test Item Value Reference Range Interpretation Comments Sodium Lvl (test code = Sodium Lvl) 139 135-145 [facility] HealthHkjvdxeJNMUWIOXWVDQ3273-25-25 18:46:00 Test Item Value Reference Range Interpretation Comments CO2 (test code = CO2) 24 24-32 [facility] HealthFxyzspfWUMIKFFROFTW3593-89-26 18:46:00 Test Item Value Reference Range Interpretation Comments BUN (test code = BUN) 16 7-22 [facility] HealthIbdicqiDGKHRTVJQYBV8504-60-07 18:46:00 Test Item Value Reference Range Interpretation Comments Glucose Lvl (test code = Glucose Lvl) 141 70-99 [facility] HealthBmdkyjgMUQLWTEUWNUN7229-12-10 18:46:00 Test Item Value Reference Range Interpretation Comments Albumin Lvl (test code = Albumin Lvl) 3.6 3.5-5.0 [facility] HealthFfcsmsiSWHCPLPJRLZX1674-34-34 18:46:00 Test Item Value Reference Range Interpretation Comments Alk Phos (test code = Alk Phos) 65 39-136 [facility] HealthCwmxrkqPSKOEXYIUZML3252-93-07 18:46:00 Test Item Value Reference Range Interpretation Comments Bili Total (test code = Bili Total) 0.3 0.2-1.3 [facility] HealthHkreqdfOVMHAFFSMPCO2386-24-51 18:46:00 Test Item Value Reference Range Interpretation Comments ALT (test code = ALT) 100 See_Comment [Auto mated message] The system which ge nerated this result transmit elizabeth reference range : <=65. The reference range was not used to interpr et this result as lukas l/abnormal. [facility] HealthBctnzqdRFTFECKNFKZN5528-05-01 18:46:00 Test Item Value Reference Range Interpretation Comments AST (test code = AST) 53 See_Comment [Auto mated message] The system which ge nerated this result transmit elizabeth reference range : <=37. The reference range was not used to interpr et this result as lukas l/abnormal. [facility] HealthQriniyqOPWOFDEZDCDI5946-03-02 18:46:00 Test Item Value Reference Range Interpretation Comments Total Protein (test code = Total 6.9 6.4-8.4 Protein) [facility]YehwdxlMZOUBIVJBZ7537-25-67 18:46:00 Test Item Value Reference Range Interpretation Comments Eosinophils (test code = 4.2 See_Comment [A utomated message] The Eosinophils) system which ge nerated this result tra nsmitted reference range : <=4.0. The reference r mitra was not used to int erpret this result as normal/abnormal . [facility] Re[id number] 18:46:00 Test Item Value Reference Range Interpretation Comments Segs (test code = Segs) 56.4 45.0-75.0 [facility]OzyokbqFPAWURUFZM6244-24-03 18:46:00 Test Item Value Reference Range Interpretation Comments Monocytes (test code = Monocytes) 10.3 2.0-12.0 [facility] ResourcesFapgtjxNCULMTQWZA7475-57-34 18:46:00 Test Item Value Reference Range Interpretation Comments Lymphocytes (test code = Lymphocytes) 28.0 20.0-40.0 [facility]PkblgtdMVSYVDOBDI4048-04-46 18:46:00 Test Item Value Reference Range Interpretation Comments Monocytes # (test code 0.5 See_Comment [Aut omated message] The = Monocytes #) system which generated this result tra nsmitted reference range : <=0.8. The reference r mitra was not used to int erpret this result as normal/abnormal . [facility] ResourcesDyquvedMUGXSKTILS7836-21-54 18:46:00 Test Item Value Reference Range Interpretation Comments Basophils (test code = 1.1 See_Comment [Aut omated message] The Basophils) system which ge nerated this result tra nsmitted reference range : <=1.0. The reference r mitra was not used to int erpret this result as normal/abnormal . [facility] ResourcesJbhrqxcNORIKKXMRL1944-29-52 18:46:00 Test Item Value Reference Range Interpretation Comments Lymphocytes # (test code = Lymphocytes 1.5 1.0-5.5 #) [facility] ResourcesDoqldglHYDIACAYRW5123-58-80 18:46:00 Test Item Value Reference Range Interpretation Comments Segs-Bands # (test code = Segs-Bands #) 2.9 1.5-8.1 [facility] ResourcesRgyqvqcZCEOREIYAV9357-51-03 18:46:00 Test Item Value Reference Range Interpretation Comments Eosinophils # (test code 0.2 See_Comment [A utomated message] The = Eosinophils #) system whic h generated this result tra nsmitted reference range : <=0.5. The reference r mitra was not used to int erpret this result as normal/abnormal . [facility] ResourcesGissrqpPLTBOZYYJS4429-96-08 18:46:00 Test Item Value Reference Range Interpretation Comments Basophils # (test code 0.1 See_Comment [Aut omated message] The = Basophils #) system which generated this result tra nsmitted reference range : <=0.2. The reference r mitra was not used to int erpret this result as normal/abnormal . [facility] ResourcesGbuhelkEPTRVFPRJW6001-05-06 18:46:00 Test Item Value Reference Range Interpretation Comments PT (test code = PT) 11.2 s 12.0-14.7 [facility] ResourcesJtzvyaeBHSZEITBMF4253-22-65 18:46:00 Test Item Value Reference Range Interpretation Comments INR (test code = INR) 0.82 0.85-1.17 [facility] ResourcesHwobhklAQVJEUISWR1207-89-92 18:46:00 Test Item Value Reference Range Interpretation Comments PTT (test code = PTT) 28.6 s 22.9-35.8 [facility] ResourcesZjbqegeQXKDOVIHQX7427-10-43 18:46:00 Test Item Value Reference Range Interpretation Comments MPV (test code = MPV) 8.1 7.4-10.4 [facility]KvhwuwwNXAMENAGIA1639-76-93 18:46:00 Test Item Value Reference Range Interpretation Comments Platelet (test code = Platelet) 301 133-450 [facility] HospitalFbwgdamZLGEPDZYON2138-90-84 18:46:00 Test Item Value Reference Range Interpretation Comments RDW (test code = RDW) 14.5 11.5-14.5 [facility] HospitalFqnamfyXGMBXDSEII3742-41-62 18:46:00 Test Item Value Reference Range Interpretation Comments RBC (test code = RBC) 4.84 4.70-6.10 [facility] HospitalFvbenhoIAEIEDPTUL2481-63-22 18:46:00 Test Item Value Reference Range Interpretation Comments Hgb (test code = Hgb) 14.4 14.0-18.0 [facility] ResourcesFsbynedULELBPQULC9245-56-52 18:46:00 Test Item Value Reference Range Interpretation Comments WBC (test code = WBC) 5.2 3.7-10.4 [facility] HospitalYnlqelqRGYRMAKJHR4808-19-75 18:46:00 Test Item Value Reference Range Interpretation Comments MCH (test code = MCH) 29.8 pg 27.0-31.0 [facility] HospitalRypozgdCPBYLDHARQ3779-22-33 18:46:00 Test Item Value Reference Range Interpretation Comments MCV (test code = MCV) 92.0 80.0-94.[address] [facility]JvxtobuRLYCDOPAYA6155-58-63 18:46:00 Test Item Value Reference Range Interpretation Comments Hct (test code = Hct) 44.5 42.0-54.[address] [facility]QskcogeUGBVYWIYGU3416-59-40 18:46:00 Test Item Value Reference Range Interpretation Comments MCHC (test code = MCHC) 32.4 32.0-36.0 [facility]OpmkhboJKKBGZSDFS1102-53-75 18:46:00 Test Item Value Reference Range Interpretation Comments [place]-Hep C Ab (test Negative *NA*(07/22/14 code = [place]-Hep C 1:46 PM) Ab) [facility] AND [id number] 18:46:00 Test Item Value Reference Range Interpretation Comments UA Urobilinogen (test code = UA <=1.0 mg/dL 0.1-1.0 Urobilinogen) [facility] AND [id number] 18:46:00 Test Item Value Reference Range Interpretation Comments UA Sq Epi (test code = UA Sq Epi) None Seen [facility] AND [id number] 18:46:00 Test Item Value Reference Range Interpretation Comments UA Leuk Est (test Negative (07/22/14 1:46 code = UA Leuk Est) PM) [facility] AND [id number] 18:46:00 Test Item Value Reference Range Interpretation Comments UA Nitrite (test code Negative (07/22/14 1:46 = UA Nitrite) PM) [facility] AND [id number] 18:46:00 Test Item Value Reference Range Interpretation Comments UA Blood (test code = Negative (07/22/14 1:46 UA Blood) PM) [facility] AND [id number] 18:46:00 Test Item Value Reference Range Interpretation Comments UA Ketones (test code = UA Negative mg/dL Ketones) [facility] AND [id number] 18:46:00 Test Item Value Reference Range Interpretation Comments UA Bili (test code = Negative *NA*(07/22/14 UA Bili) 1:46 PM) [facility] AND [id number] 18:46:00 Test Item Value Reference Range Interpretation Comments UA Bacteria (test code = UA Occasional /HPF Bacteria) [facility] AND [id number] 18:46:00 Test Item Value Reference Range Interpretation Comments UA RBC (test code = no gt See_Comment [Automa elizabeth message] The UA RBC) system which ge nerated this result transmit elizabeth reference range : <=2. The reference range was not used to interpr et this result as lukas l/abnormal. [facility] AND [id number] 18:46:00 Test Item Value Reference Range Interpretation Comments UA WBC (test code = 1 See_Comment [Automa elizabeth message] The UA WBC) system which ge nerated this result transmit elizabeth reference range : <=5. The reference range was not used to interpr et this result as lukas l/abnormal. [facility] AND [id number] 18:46:00 Test Item Value Reference Range Interpretation Comments UA Glucose (test code = UA Glucose) 30 mg/dL [facility] AND [id number] 18:46:00 Test Item Value Reference Range Interpretation Comments UA Protein (test code = UA Negative mg/dL Protein) [facility] [id number] 18:46:00 Test Item Value Reference Range Interpretation Comments UA pH (test code = UA pH) 6.5 5.0-8.0 [facility] [id number] 18:46:00 Test Item Value Reference Range Interpretation Comments UA Turbidity (test code = Clear (07/22/14 1:46 UA Turbidity) PM) [facility] AND [id number] 18:46:00 Test Item Value Reference Range Interpretation Comments UA Spec Grav (test code = UA Spec Grav) 1.010 [facility] AND [id number] 18:46:00 Test Item Value Reference Range Interpretation Comments UA Color (test code = Light Yellow UA Color) *NA*(07/22/14 1:46 PM) [facility] [id number] 18:46:00 Test Item Value Reference Range Interpretation Comments Magnesium Lvl (test code = Magnesium 1.8 1.8-2.4 Lvl) [facility] CenterWixsqifOCUEDDVEFKEY5209-30-47 18:46:00 Test Item Value Reference Range Interpretation Comments AGAP (test code = AGAP) 13.2 10.0-20.0 [facility] HealthAxbpewaZMPAMPIUWTII7177-46-21 18:46:00 Test Item Value Reference Range Interpretation Comments B/C Ratio (test code = B/C Ratio) 18 6-25 [facility] HealthNymjubsXHGTIRJQSEVA2673-92-36 18:46:00 Test Item Value Reference Range Interpretation Comments A/G Ratio (test code = A/G Ratio) 1.1 0.7-1.[address] [facility] [facility] CenterVnepbruBWSIIYABAKEV9732-67-25 18:46:00 Test Item Value Reference Range Interpretation Comments Globulin (test code = Globulin) 3.3 2.0-4.0 [facility] HealthZzpmduxVQZLEEFRSFCG9097-59-10 18:46:00 Test Item Value Reference Range Interpretation Comments eGFR (test code = eGFR) 99 [facility] HealthAlmbirrFPLWBYVBOSMA7670-92-59 18:46:00 Test Item Value Reference Range Interpretation Comments Calcium Lvl (test code = Calcium Lvl) 9.0 8.5-10.5 [facility] HealthSvcxoveBPWIXPCQODXD4642-66-54 18:46:00 Test Item Value Reference Range Interpretation Comments Chloride Lvl (test code = Chloride Lvl) 106 95-109 [facility] HealthGgzzkphXXWYCPWBNFLM8720-87-26 18:46:00 Test Item Value Reference Range Interpretation Comments Creatinine Lvl (test code = Creatinine 0.9 0.5-1.4 Lvl) [facility] HealthXzounzwMWVJNXANBGGO7840-30-50 18:46:00 Test Item Value Reference Range Interpretation Comments Potassium Lvl (test code = Potassium 4.2 3.5-5.1 Lvl) [facility] HealthLrqqjlaMBPFOVMJBVGN2767-59-91 18:46:00 Test Item Value Reference Range Interpretation Comments Sodium Lvl (test code = Sodium Lvl) 139 135-145 [facility] HealthUsrcjeuRJCYOQVSZIPF4384-07-66 18:46:00 Test Item Value Reference Range Interpretation Comments CO2 (test code = CO2) 24 24-32 [facility] HealthCqndqipCYEYTJHAROPB1559-86-66 18:46:00 Test Item Value Reference Range Interpretation Comments BUN (test code = BUN) 16 7-22 [facility] HealthIlsiorzZSNYHQLAPQVZ4570-77-45 18:46:00 Test Item Value Reference Range Interpretation Comments Glucose Lvl (test code = Glucose Lvl) 141 70-99 [facility] HealthMauziepERRMQCVOEZML6278-88-71 18:46:00 Test Item Value Reference Range Interpretation Comments Albumin Lvl (test code = Albumin Lvl) 3.6 3.5-5.0 [facility] HealthKhpfgxeSPMGGJRENLBO7082-44-71 18:46:00 Test Item Value Reference Range Interpretation Comments Alk Phos (test code = Alk Phos) 65 39-136 [facility] HealthNssyrvhYJFZBMNLPKMY8437-33-45 18:46:00 Test Item Value Reference Range Interpretation Comments Bili Total (test code = Bili Total) 0.3 0.2-1.3 [facility] HealthDfnhaxfTTITLFXUBWIJ7095-89-71 18:46:00 Test Item Value Reference Range Interpretation Comments ALT (test code = ALT) 100 See_Comment [Auto mated message] The system which ge nerated this result transmit elizabeth reference range : <=65. The reference range was not used to interpr et this result as lukas l/abnormal. [facility] HealthNolkdshEXVPBAZXPWVI7630-14-19 18:46:00 Test Item Value Reference Range Interpretation Comments AST (test code = AST) 53 See_Comment [Auto mated message] The system which ge nerated this result transmit elizabeth reference range : <=37. The reference range was not used to interpr et this result as lukas l/abnormal. [facility] HealthCgmclnvVNRXBTWAJAYN0560-11-71 18:46:00 Test Item Value Reference Range Interpretation Comments Total Protein (test code = Total 6.9 6.4-8.4 Protein) [facility]QhflndcWITENLNDQA5955-15-93 18:46:00 Test Item Value Reference Range Interpretation Comments Eosinophils (test code = 4.2 See_Comment [A utomated message] The Eosinophils) system which ge nerated this result tra nsmitted reference range : <=4.0. The reference r mitra was not used to int erpret this result as normal/abnormal . [facility]KrqnmgsLMTDTUVSBE2049-20-84 18:46:00 Test Item Value Reference Range Interpretation Comments Segs (test code = Segs) 56.4 45.0-75.0 [facility] ResourcesTzdthwmLQWROTGOYR1217-35-44 18:46:00 Test Item Value Reference Range Interpretation Comments Monocytes (test code = Monocytes) 10.3 2.0-12.0 [facility] ResourcesTzlsfjvWJDYSAEROW6682-43-97 18:46:00 Test Item Value Reference Range Interpretation Comments Lymphocytes (test code = Lymphocytes) 28.0 20.0-40.0 [facility] ResourcesYovlcehWVWZTDWVWJ1308-85-44 18:46:00 Test Item Value Reference Range Interpretation Comments Monocytes # (test code 0.5 See_Comment [Aut omated message] The = Monocytes #) system which generated this result tra nsmitted reference range : <=0.8. The reference r mitra was not used to int erpret this result as normal/abnormal . [facility] ResourcesZarhnzuFWNNMQURGW9422-93-32 18:46:00 Test Item Value Reference Range Interpretation Comments Basophils (test code = 1.1 See_Comment [Aut omated message] The Basophils) system which ge nerated this result tra nsmitted reference range : <=1.0. The reference r mitra was not used to int erpret this result as normal/abnormal . [facility]FefxtcaWVGTCTJPVQ6706-79-88 18:46:00 Test Item Value Reference Range Interpretation Comments Lymphocytes # (test code = Lymphocytes 1.5 1.0-5.5 #) [facility] ResourcesOrathsgYMIQWXCFUT4821-83-32 18:46:00 Test Item Value Reference Range Interpretation Comments Segs-Bands # (test code = Segs-Bands #) 2.9 1.5-8.1 [facility]PtwlsxzPWAVMWJJJG2623-25-28 18:46:00 Test Item Value Reference Range Interpretation Comments Eosinophils # (test code 0.2 See_Comment [A utomated message] The = Eosinophils #) system whic h generated this result tra nsmitted reference range : <=0.5. The reference r mitra was not used to int erpret this result as normal/abnormal . [facility] ResourcesRjqvwscCSJAGUQLBE1205-46-01 18:46:00 Test Item Value Reference Range Interpretation Comments Basophils # (test code 0.1 See_Comment [Aut omated message] The = Basophils #) system which generated this result tra nsmitted reference range : <=0.2. The reference r mitra was not used to int erpret this result as normal/abnormal . [facility] ResourcesCdugiyuTRNBUOIIXX4031-53-73 18:46:00 Test Item Value Reference Range Interpretation Comments PT (test code = PT) 11.2 s 12.0-14.7 [facility] ResourcesNesicvsKISLMPQOKY4622-93-25 18:46:00 Test Item Value Reference Range Interpretation Comments INR (test code = INR) 0.82 0.85-1.17 [facility] ResourcesYjnthfbANCJDRBZPH9967-81-01 18:46:00 Test Item Value Reference Range Interpretation Comments PTT (test code = PTT) 28.6 s 22.9-35.8 [facility] ResourcesWskmgdbNMLJIWHXRF3298-33-72 18:46:00 Test Item Value Reference Range Interpretation Comments MPV (test code = MPV) 8.1 7.4-10.4 [facility] ResourcesEaiypwpFXKVBYJTXL8271-33-85 18:46:00 Test Item Value Reference Range Interpretation Comments Platelet (test code = Platelet) 301 133-450 [facility] ResourcesFenznetIKKNTEEYGK5202-14-42 18:46:00 Test Item Value Reference Range Interpretation Comments RDW (test code = RDW) 14.5 11.5-14.5 [facility] ResourcesJozagxmWLEDYTTPVL1503-54-34 18:46:00 Test Item Value Reference Range Interpretation Comments RBC (test code = RBC) 4.84 4.70-6.10 [facility] ResourcesKeanjwfPJUIDQKDXB5238-40-66 18:46:00 Test Item Value Reference Range Interpretation Comments Hgb (test code = Hgb) 14.4 14.0-18.0 [facility] ResourcesKiwjnubQHTDHSSJQB1699-81-44 18:46:00 Test Item Value Reference Range Interpretation Comments WBC (test code = WBC) 5.2 3.7-10.4 [facility] ResourcesDgcyyuhRFUUFVEPGQ4484-86-38 18:46:00 Test Item Value Reference Range Interpretation Comments MCH (test code = MCH) 29.8 pg 27.0-31.0 [facility] ResourcesQqafhteFFDZPJAKTB7237-96-33 18:46:00 Test Item Value Reference Range Interpretation Comments MCV (test code = MCV) 92.0 80.0-94.0 [facility] ResourcesBucuqjoPKZHHMOTWY5327-39-81 18:46:00 Test Item Value Reference Range Interpretation Comments Hct (test code = Hct) 44.5 42.0-54.0 [facility] ResourcesNgdtphdPSGOQFHZKH0586-93-40 18:46:00 Test Item Value Reference Range Interpretation Comments MCHC (test code = MCHC) 32.4 32.0-36.[address] [facility]ZximzhfCHIEABRQES6240-66-68 18:46:00 Test Item Value Reference Range Interpretation Comments [place]-Hep C Ab (test Negative *NA*(07/22/14 code = [place]-Hep C 1:46 PM) Ab) [facility] AND [id number] 18:46:00 Test Item Value Reference Range Interpretation Comments UA Urobilinogen (test code = UA <=1.0 mg/dL 0.1-1.0 Urobilinogen) [facility] AND [id number] 18:46:00 Test Item Value Reference Range Interpretation Comments UA Sq Epi (test code = UA Sq Epi) None Seen [facility] AND [id number] 18:46:00 Test Item Value Reference Range Interpretation Comments UA Leuk Est (test Negative (07/22/14 1:46 code = UA Leuk Est) PM) [facility] AND [id number] 18:46:00 Test Item Value Reference Range Interpretation Comments UA Nitrite (test code Negative (07/22/14 1:46 = UA Nitrite) PM) [facility] AND [id number] 18:46:00 Test Item Value Reference Range Interpretation Comments UA Blood (test code = Negative (07/22/14 1:46 UA Blood) PM) [facility] AND [id number] 18:46:00 Test Item Value Reference Range Interpretation Comments UA Ketones (test code = UA Negative mg/dL Ketones) [facility] AND [id number] 18:46:00 Test Item Value Reference Range Interpretation Comments UA Bili (test code = Negative *NA*(07/22/14 UA Bili) 1:46 PM) [facility] AND [id number] 18:46:00 Test Item Value Reference Range Interpretation Comments UA Bacteria (test code = UA Occasional /HPF Bacteria) [facility] AND [id number] 18:46:00 Test Item Value Reference Range Interpretation Comments UA RBC (test code = no gt See_Comment [Automa elizabeth message] The UA RBC) system which ge nerated this result transmit elizabeth reference range : <=2. The reference range was not used to interpr et this result as lukas l/abnormal. [facility] AND [id number] 18:46:00 Test Item Value Reference Range Interpretation Comments UA WBC (test code = 1 See_Comment [Automa elizabeth message] The UA WBC) system which ge nerated this result transmit elizabeth reference range : <=5. The reference range was not used to interpr et this result as lukas l/abnormal. [facility] AND [id number] 18:46:00 Test Item Value Reference Range Interpretation Comments UA Glucose (test code = UA Glucose) 30 mg/dL [facility] AND [id number] 18:46:00 Test Item Value Reference Range Interpretation Comments UA Protein (test code = UA Negative mg/dL Protein) [facility] AND [id number] 18:46:00 Test Item Value Reference Range Interpretation Comments UA pH (test code = UA pH) 6.5 5.0-8.0 [facility] AND [id number] 18:46:00 Test Item Value Reference Range Interpretation Comments UA Turbidity (test code = Clear (07/22/14 1:46 UA Turbidity) PM) [facility] AND [id number] 18:46:00 Test Item Value Reference Range Interpretation Comments UA Spec Grav (test code = UA Spec Grav) 1.010 [facility]britt[facility] [id number] 18:46:00 Test Item Value Reference Range Interpretation Comments UA Color (test code = Light Yellow UA Color) *NA*(07/22/14 1:46 PM) [facility] CrissannCHEM DEBJY2318-28-70 18:46:00 Test Item Value Reference Range Interpretation Comments Magnesium Lvl (test code = Magnesium 1.8 1.8-2.4 Lvl) [facility] HealthZldtvmvGBZZUJHHYVYS5058-94-48 18:46:00 Test Item Value Reference Range Interpretation Comments AGAP (test code = AGAP) 13.2 10.0-20.0 [facility] HealthXsjovulHFCUVWTJSZFE4368-59-88 18:46:00 Test Item Value Reference Range Interpretation Comments B/C Ratio (test code = B/C Ratio) 18 6-25 [facility] HealthNwzrnwnQGHSSRNFVURS3202-34-95 18:46:00 Test Item Value Reference Range Interpretation Comments A/G Ratio (test code = A/G Ratio) 1.1 0.7-1.6 [facility] HealthZuctpxyEPWBSLRHTECW8884-47-07 18:46:00 Test Item Value Reference Range Interpretation Comments Globulin (test code = Globulin) 3.3 2.0-4.0 [facility] HealthAjsavovPGIXJXPRXNMI5410-07-12 18:46:00 Test Item Value Reference Range Interpretation Comments eGFR (test code = eGFR) 99 [facility] HealthWdpxnfrRORVMRYRXTNV9130-33-68 18:46:00 Test Item Value Reference Range Interpretation Comments Calcium Lvl (test code = Calcium Lvl) 9.0 8.5-10.5 [facility] HealthKcsokfgBCHQGFZYTXSH1546-40-54 18:46:00 Test Item Value Reference Range Interpretation Comments Chloride Lvl (test code = Chloride Lvl) 106 95-109 [facility] HealthLhfyurzBZHNNDWGNGNV5487-61-19 18:46:00 Test Item Value Reference Range Interpretation Comments Creatinine Lvl (test code = Creatinine 0.9 0.5-1.4 Lvl) [facility] HealthKhrktsmUFQUIXYEACIZ5497-65-00 18:46:00 Test Item Value Reference Range Interpretation Comments Potassium Lvl (test code = Potassium 4.2 3.5-5.1 Lvl) [facility] HealthOacunujFGVGRQFJOPQC2401-51-14 18:46:00 Test Item Value Reference Range Interpretation Comments Sodium Lvl (test code = Sodium Lvl) 139 135-145 [facility] HealthPbpballODOTREFDSONI0077-38-43 18:46:00 Test Item Value Reference Range Interpretation Comments CO2 (test code = CO2) 24 24-32 [facility] HealthWbibsanAWZWZLXBMNEJ9945-11-06 18:46:00 Test Item Value Reference Range Interpretation Comments BUN (test code = BUN) 16 7-22 [facility] HealthOdnxeeeRZXUNOIZDKBI2304-40-79 18:46:00 Test Item Value Reference Range Interpretation Comments Glucose Lvl (test code = Glucose Lvl) 141 70-99 [facility] HealthDnqgpazNSCWICSALTNW7113-52-86 18:46:00 Test Item Value Reference Range Interpretation Comments Albumin Lvl (test code = Albumin Lvl) 3.6 3.5-5.0 [facility] HealthVtmcoooZQWKSOFKENZQ5933-33-16 18:46:00 Test Item Value Reference Range Interpretation Comments Alk Phos (test code = Alk Phos) 65 39-136 [facility] HealthOwdtofpKZWLQBVYTQTV2084-99-99 18:46:00 Test Item Value Reference Range Interpretation Comments Bili Total (test code = Bili Total) 0.3 0.2-1.3 [facility] HealthEluoevwXCQXWMGKMINO6817-90-35 18:46:00 Test Item Value Reference Range Interpretation Comments ALT (test code = ALT) 100 See_Comment [Auto mated message] The system which ge nerated this result transmit elizabeth reference range : <=65. The reference range was not used to interpr et this result as lukas l/abnormal. [facility] HealthBmgyvbpANJOTZAABWMQ7940-63-00 18:46:00 Test Item Value Reference Range Interpretation Comments AST (test code = AST) 53 See_Comment [Auto mated message] The system which ge nerated this result transmit elizabeth reference range : <=37. The reference range was not used to interpr et this result as lukas l/abnormal. [facility] HealthKygsbmeCOAOXQIDBRWE6842-52-82 18:46:00 Test Item Value Reference Range Interpretation Comments Total Protein (test code = Total 6.9 6.4-8.4 Protein) [id number] 18:46:00 Test Item Value Reference Range Interpretation Comments Eosinophils (test code = 4.2 See_Comment [A utomated message] The Eosinophils) system which ge nerated this result tra nsmitted reference range : <=4.0. The reference r mitra was not used to int erpret this result as normal/abnormal . [id number] 18:46:00 Test Item Value Reference Range Interpretation Comments Segs (test code = Segs) 56.4 45.0-75.0 [facility] ResourcesTlcvnikYXWUEDFPMJ6669-06-26 18:46:00 Test Item Value Reference Range Interpretation Comments Monocytes (test code = Monocytes) 10.3 2.0-12.0 [facility] ResourcesBzdabhxRATXELIRQF4668-36-72 18:46:00 Test Item Value Reference Range Interpretation Comments Lymphocytes (test code = Lymphocytes) 28.0 20.0-40.0 [facility] ResourcesCgbanasILTJXGPDSI7243-76-06 18:46:00 Test Item Value Reference Range Interpretation Comments Monocytes # (test code 0.5 See_Comment [Aut omated message] The = Monocytes #) system which generated this result tra nsmitted reference range : <=0.8. The reference r mitra was not used to int erpret this result as normal/abnormal . [facility] ResourcesVcmizobGFNBIGGYSO1465-73-13 18:46:00 Test Item Value Reference Range Interpretation Comments Basophils (test code = 1.1 See_Comment [Aut omated message] The Basophils) system which ge nerated this result tra nsmitted reference range : <=1.0. The reference r mitra was not used to int erpret this result as normal/abnormal . [facility] ResourcesKbrrfiwWBAZBZGIZD3347-05-72 18:46:00 Test Item Value Reference Range Interpretation Comments Lymphocytes # (test code = Lymphocytes 1.5 1.0-5.5 #) [facility]LdcfdnaEYJCFVIVES2983-41-72 18:46:00 Test Item Value Reference Range Interpretation Comments Segs-Bands # (test code = Segs-Bands #) 2.9 1.5-8.1 [facility] Resourc[id number] 18:46:00 Test Item Value Reference Range Interpretation Comments Eosinophils # (test code 0.2 See_Comment [A utomated message] The = Eosinophils #) system whic h generated this result tra nsmitted reference range : <=0.5. The reference r mitra was not used to int erpret this result as normal/abnormal . [facility] ResourcesSojwazbXQHVHGTALY2484-87-94 18:46:00 Test Item Value Reference Range Interpretation Comments Basophils # (test code 0.1 See_Comment [Aut omated message] The = Basophils #) system which generated this result tra nsmitted reference range : <=0.2. The reference r mitra was not used to int erpret this result as normal/abnormal . [facility] Resourc[id number] 18:46:00 Test Item Value Reference Range Interpretation Comments PT (test code = PT) 11.2 s 12.0-14.7 [facility] ResourcesHdzjdcnEIJGRELSJS2513-21-19 18:46:00 Test Item Value Reference Range Interpretation Comments INR (test code = INR) 0.82 0.85-1.17 [facility] ResourcesKgkbotsKWFVEOIHLB1316-71-89 18:46:00 Test Item Value Reference Range Interpretation Comments PTT (test code = PTT) 28.6 s 22.9-35.8 [facility] ResourcesJgtygynLVKWVEGBZT8273-60-46 18:46:00 Test Item Value Reference Range Interpretation Comments MPV (test code = MPV) 8.1 7.4-10.4 [facility] ResourcesLkzhmgnDUIBASYGQW6019-32-78 18:46:00 Test Item Value Reference Range Interpretation Comments Platelet (test code = Platelet) 301 133-450 [facility] ResourcesCqftfaqQCTAYJKKPO2038-47-07 18:46:00 Test Item Value Reference Range Interpretation Comments RDW (test code = RDW) 14.5 11.5-14.5 [facility] ResourcesBepohbcSYFKQXJDRK1099-38-19 18:46:00 Test Item Value Reference Range Interpretation Comments RBC (test code = RBC) 4.84 4.70-6.10 [facility] ResourcesOdzkhozLWOOOMTYTJ3611-40-55 18:46:00 Test Item Value Reference Range Interpretation Comments Hgb (test code = Hgb) 14.4 14.0-18.0 [facility] ResourcesLiggoowYNKHCNPWRR9069-88-51 18:46:00 Test Item Value Reference Range Interpretation Comments WBC (test code = WBC) 5.2 3.7-10.4 [facility] ResourcesCyfgsibHMTIUZKRQP3563-95-99 18:46:00 Test Item Value Reference Range Interpretation Comments MCH (test code = MCH) 29.8 pg 27.0-31.0 [facility] ResourcesStowthlUHBRJEUJGV6986-82-73 18:46:00 Test Item Value Reference Range Interpretation Comments MCV (test code = MCV) 92.0 80.0-94.[address] [facility]WjqtyndTPKBJXRQSP0229-44-22 18:46:00 Test Item Value Reference Range Interpretation Comments Hct (test code = Hct) 44.5 42.0-54.[address] [facility]JgxgxreYSUJYNGYHI9604-89-99 18:46:00 Test Item Value Reference Range Interpretation Comments MCHC (test code = MCHC) 32.4 32.0-36.[address] [facility]AtcxoyfFILHSNNQRQ5535-71-56 18:46:00 Test Item Value Reference Range Interpretation Comments [place]-Hep C Ab (test Negative *NA*(07/22/14 code = [place]-Hep C 1:46 PM) Ab) [facility] AND [id number] 18:46:00 Test Item Value Reference Range Interpretation Comments UA Urobilinogen (test code = UA <=1.0 mg/dL 0.1-1.0 Urobilinogen) [facility] AND [id number] 18:46:00 Test Item Value Reference Range Interpretation Comments UA Sq Epi (test code = UA Sq Epi) None Seen [facility] AND [id number] 18:46:00 Test Item Value Reference Range Interpretation Comments UA Leuk Est (test Negative (07/22/14 1:46 code = UA Leuk Est) PM) [facility] AND [id number] 18:46:00 Test Item Value Reference Range Interpretation Comments UA Nitrite (test code Negative (07/22/14 1:46 = UA Nitrite) PM) [facility] AND [id number] 18:46:00 Test Item Value Reference Range Interpretation Comments UA Blood (test code = Negative (07/22/14 1:46 UA Blood) PM) [facility] AND [id number] 18:46:00 Test Item Value Reference Range Interpretation Comments UA Ketones (test code = UA Negative mg/dL Ketones) [facility] AND [id number] 18:46:00 Test Item Value Reference Range Interpretation Comments UA Bili (test code = Negative *NA*(07/22/14 UA Bili) 1:46 PM) [facility] AND [id number] 18:46:00 Test Item Value Reference Range Interpretation Comments UA Bacteria (test code = UA Occasional /HPF Bacteria) [facility] AND [id number] 18:46:00 Test Item Value Reference Range Interpretation Comments UA RBC (test code = no gt See_Comment [Automa elizabeth message] The UA RBC) system which ge nerated this result transmit elizabeth reference range : <=2. The reference range was not used to interpr et this result as lukas l/abnormal. [facility] AND [id number] 18:46:00 Test Item Value Reference Range Interpretation Comments UA WBC (test code = 1 See_Comment [Automa elizabeth message] The UA WBC) system which ge nerated this result transmit elizabeth reference range : <=5. The reference range was not used to interpr et this result as lukas l/abnormal. [facility] AND [id number] 18:46:00 Test Item Value Reference Range Interpretation Comments UA Glucose (test code = UA Glucose) 30 mg/dL [facility] AND [id number] 18:46:00 Test Item Value Reference Range Interpretation Comments UA Protein (test code = UA Negative mg/dL Protein) [facility] AND [id number] 18:46:00 Test Item Value Reference Range Interpretation Comments UA pH (test code = UA pH) 6.5 5.0-8.0 [facility] AND [id number] 18:46:00 Test Item Value Reference Range Interpretation Comments UA Turbidity (test code = Clear (07/22/14 1:46 UA Turbidity) PM) [facility] AND [id number] 18:46:00 Test Item Value Reference Range Interpretation Comments UA Spec Grav (test code = UA Spec Grav) 1.010 [facility] AND [id number] 18:46:00 Test Item Value Reference Range Interpretation Comments UA Color (test code = Light Yellow UA Color) *NA*(07/22/14 1:46 PM) [id number] 18:46:00 Test Item Value Reference Range Interpretation Comments Magnesium Lvl (test code = Magnesium 1.8 1.8-2.4 Lvl) [facility]KytmqrfGZUVWFRNRESC5860-58-83 18:46:00 Test Item Value Reference Range Interpretation Comments AGAP (test code = AGAP) 13.2 10.0-20.0 [facility] HealthDwbmkazSGCBFDDLQQCF1715-70-16 18:46:00 Test Item Value Reference Range Interpretation Comments B/C Ratio (test code = B/C Ratio) 18 6-25 [facility] HealthQbpgsozCNLEPWEQLZQS3364-25-69 18:46:00 Test Item Value Reference Range Interpretation Comments A/G Ratio (test code = A/G Ratio) 1.1 0.7-1.6 [facility] HealthElxsmhfPYBJXEHCWFHB2892-45-13 18:46:00 Test Item Value Reference Range Interpretation Comments Globulin (test code = Globulin) 3.3 2.0-4.0 [facility] H[id number] 18:46:00 Test Item Value Reference Range Interpretation Comments eGFR (test code = eGFR) 99 [facility] HealthUxcaidlAFMRDBTENYQP5507-43-48 18:46:00 Test Item Value Reference Range Interpretation Comments Calcium Lvl (test code = Calcium Lvl) 9.0 8.5-10.5 [facility] HealthXinodcsBHGJJOOGRDNV0804-01-30 18:46:00 Test Item Value Reference Range Interpretation Comments Chloride Lvl (test code = Chloride Lvl) 106 95-109 [facility] HealthVduhckdDRBPDDPWQDRF1223-90-60 18:46:00 Test Item Value Reference Range Interpretation Comments Creatinine Lvl (test code = Creatinine 0.9 0.5-1.4 Lvl) [facility] HealthQgemnluIJCFWUCGKZYF4893-92-09 18:46:00 Test Item Value Reference Range Interpretation Comments Potassium Lvl (test code = Potassium 4.2 3.5-5.1 Lvl) [facility] Health[id number] 18:46:00 Test Item Value Reference Range Interpretation Comments Sodium Lvl (test code = Sodium Lvl) 139 135-145 [facility] HealthVopycjrYHMMCKZZDEMV5830-70-97 18:46:00 Test Item Value Reference Range Interpretation Comments CO2 (test code = CO2) 24 24-32 [facility] HealthKekqlstUCYOYQDHZNRE2203-18-90 18:46:00 Test Item Value Reference Range Interpretation Comments BUN (test code = BUN) 16 7-22 [facility] HealthVybyffdOIDHVYLOAXHG4737-31-48 18:46:00 Test Item Value Reference Range Interpretation Comments Glucose Lvl (test code = Glucose Lvl) 141 70-99 [facility] HealthUzbvsdiYZAFEBTXPTVI3985-94-11 18:46:00 Test Item Value Reference Range Interpretation Comments Albumin Lvl (test code = Albumin Lvl) 3.6 3.5-5.0 [facility] HealthLzotepuRKTGROVYNLYJ7886-34-37 18:46:00 Test Item Value Reference Range Interpretation Comments Alk Phos (test code = Alk Phos) 65 39-136 [facility] HealthWzgpnntULXRKFVACMQS0259-89-39 18:46:00 Test Item Value Reference Range Interpretation Comments Bili Total (test code = Bili Total) 0.3 0.2-1.3 [facility] Health[id number] 18:46:00 Test Item Value Reference Range Interpretation Comments ALT (test code = ALT) 100 See_Comment [Auto mated message] The system which ge nerated this result transmit elizabeth reference range : <=65. The reference range was not used to interpr et this result as lukas l/abnormal. [facility] HealthWsycjojFVGHGCGRTDKF1696-60-32 18:46:00 Test Item Value Reference Range Interpretation Comments AST (test code = AST) 53 See_Comment [Auto mated message] The system which ge nerated this result transmit elizabeth reference range : <=37. The reference range was not used to interpr et this result as luksa l/abnormal. [facility] HealthUrycahiSCLMRSAUNQUJ6863-10-79 18:46:00 Test Item Value Reference Range Interpretation Comments Total Protein (test code = Total 6.9 6.4-8.4 Protein) [id number] 18:46:00 Test Item Value Reference Range Interpretation Comments Eosinophils (test code = 4.2 See_Comment [A utomated message] The Eosinophils) system which ge nerated this result tra nsmitted reference range : <=4.0. The reference r mitra was not used to int erpret this result as normal/abnormal . [facility]EyfnlvoCYPIKXOVRX6708-08-36 18:46:00 Test Item Value Reference Range Interpretation Comments Segs (test code = Segs) 56.4 45.0-75.0 [facility] Resourc[id number] 18:46:00 Test Item Value Reference Range Interpretation Comments Monocytes (test code = Monocytes) 10.3 2.0-12.0 [facility] Resourc[id number] 18:46:00 Test Item Value Reference Range Interpretation Comments Lymphocytes (test code = Lymphocytes) 28.0 20.0-40.0 [facility] ResourcesGnjzawbGJFKNLGUUD5025-26-42 18:46:00 Test Item Value Reference Range Interpretation Comments Monocytes # (test code 0.5 See_Comment [Aut omated message] The = Monocytes #) system which generated this result tra nsmitted reference range : <=0.8. The reference r mitra was not used to int erpret this result as normal/abnormal . [facility]YzzqvciXBWEWPESWH0004-40-64 18:46:00 Test Item Value Reference Range Interpretation Comments Basophils (test code = 1.1 See_Comment [Aut omated message] The Basophils) system which ge nerated this result tra nsmitted reference range : <=1.0. The reference r mitra was not used to int erpret this result as normal/abnormal . [id number] 18:46:00 Test Item Value Reference Range Interpretation Comments Lymphocytes # (test code = Lymphocytes 1.5 1.0-5.5 #) [facility] ResourcesMusynpmSINPZRLBUL7822-60-08 18:46:00 Test Item Value Reference Range Interpretation Comments Segs-Bands # (test code = Segs-Bands #) 2.9 1.5-8.1 [facility] ResourcesJwkqmnpFSFONODJFO0264-27-32 18:46:00 Test Item Value Reference Range Interpretation Comments Eosinophils # (test code 0.2 See_Comment [A utomated message] The = Eosinophils #) system whic h generated this result tra nsmitted reference range : <=0.5. The reference r mitra was not used to int erpret this result as normal/abnormal . [facility]KgslxqbESBODOOIRI4263-62-13 18:46:00 Test Item Value Reference Range Interpretation Comments Basophils # (test code 0.1 See_Comment [Aut omated message] The = Basophils #) system which generated this result tra nsmitted reference range : <=0.2. The reference r mitra was not used to int erpret this result as normal/abnormal . [facility] Resourc[id number] 18:46:00 Test Item Value Reference Range Interpretation Comments PT (test code = PT) 11.2 s 12.0-14.7 [facility] ResourcesSrjzhnrPKALRTMVQU5574-56-01 18:46:00 Test Item Value Reference Range Interpretation Comments INR (test code = INR) 0.82 0.85-1.17 [facility] Resourc[id number] 18:46:00 Test Item Value Reference Range Interpretation Comments PTT (test code = PTT) 28.6 s 22.9-35.8 [facility] ResourcesNlduepjDWLROCPPTM0531-25-25 18:46:00 Test Item Value Reference Range Interpretation Comments MPV (test code = MPV) 8.1 7.4-10.4 [facility] ResourcesQmmkukjSWKZQKDQJK4183-54-41 18:46:00 Test Item Value Reference Range Interpretation Comments Platelet (test code = Platelet) 301 133-450 [facility] ResourcesFgyjglyFFIQGDWWUF5963-41-53 18:46:00 Test Item Value Reference Range Interpretation Comments RDW (test code = RDW) 14.5 11.5-14.5 [facility] ResourcesZvlpthrBHMDPSSAFX2815-44-45 18:46:00 Test Item Value Reference Range Interpretation Comments RBC (test code = RBC) 4.84 4.70-6.10 [facility] Resourc[id number] 18:46:00 Test Item Value Reference Range Interpretation Comments Hgb (test code = Hgb) 14.4 14.0-18.0 [facility] ResourcesRthpkxgDESZCLRYTP3380-31-06 18:46:00 Test Item Value Reference Range Interpretation Comments WBC (test code = WBC) 5.2 3.7-10.4 [facility] ResourcesKozdrgkCNXHWTFPQK3503-71-19 18:46:00 Test Item Value Reference Range Interpretation Comments MCH (test code = MCH) 29.8 pg 27.0-31.0 [facility] ResourcesLcuwvbjUBGMYRNRAS0265-95-27 18:46:00 Test Item Value Reference Range Interpretation Comments MCV (test code = MCV) 92.0 80.0-94.0 [facility] ResourcesYrphzhlRGFNDZAGAU0364-64-35 18:46:00 Test Item Value Reference Range Interpretation Comments Hct (test code = Hct) 44.5 42.0-54.0 [facility] ResourcesOuaxmfjNVODRHFTWY8669-03-21 18:46:00 Test Item Value Reference Range Interpretation Comments MCHC (test code = MCHC) 32.4 32.0-36.[address] [facility]RusqyhqNACTOEBESJ4751-38-17 18:46:00 Test Item Value Reference Range Interpretation Comments [place]-Hep C Ab (test Negative *NA*(07/22/14 code = [place]-Hep C 1:46 PM) Ab) [facility] AND [id number] 18:46:00 Test Item Value Reference Range Interpretation Comments UA Urobilinogen (test code = UA <=1.0 mg/dL 0.1-1.0 Urobilinogen) [facility] AND [id number] 18:46:00 Test Item Value Reference Range Interpretation Comments UA Sq Epi (test code = UA Sq Epi) None Seen [facility] AND [id number] 18:46:00 Test Item Value Reference Range Interpretation Comments UA Leuk Est (test Negative (07/22/14 1:46 code = UA Leuk Est) PM) [facility] AND [id number] 18:46:00 Test Item Value Reference Range Interpretation Comments UA Nitrite (test code Negative (07/22/14 1:46 = UA Nitrite) PM) [facility] AND [id number] 18:46:00 Test Item Value Reference Range Interpretation Comments UA Blood (test code = Negative (07/22/14 1:46 UA Blood) PM) [facility] AND [id number] 18:46:00 Test Item Value Reference Range Interpretation Comments UA Ketones (test code = UA Negative mg/dL Ketones) [facility] AND [id number] 18:46:00 Test Item Value Reference Range Interpretation Comments UA Bili (test code = Negative *NA*(07/22/14 UA Bili) 1:46 PM) [facility] AND [id number] 18:46:00 Test Item Value Reference Range Interpretation Comments UA Bacteria (test code = UA Occasional /HPF Bacteria) [facility] AND [id number] 18:46:00 Test Item Value Reference Range Interpretation Comments UA RBC (test code = no gt See_Comment [Automa elizabeth message] The UA RBC) system which ge nerated this result transmit elizabeth reference range : <=2. The reference range was not used to interpr et this result as lukas l/abnormal. [facility] AND [id number] 18:46:00 Test Item Value Reference Range Interpretation Comments UA WBC (test code = 1 See_Comment [Automa elizabeth message] The UA WBC) system which ge nerated this result transmit elizabeth reference range : <=5. The reference range was not used to interpr et this result as lukas l/abnormal. [facility] AND [id number] 18:46:00 Test Item Value Reference Range Interpretation Comments UA Glucose (test code = UA Glucose) 30 mg/dL [facility] AND [id number] 18:46:00 Test Item Value Reference Range Interpretation Comments UA Protein (test code = UA Negative mg/dL Protein) [facility] AND [id number] 18:46:00 Test Item Value Reference Range Interpretation Comments UA pH (test code = UA pH) 6.5 5.0-8.0 [facility] AND [id number] 18:46:00 Test Item Value Reference Range Interpretation Comments UA Turbidity (test code = Clear (07/22/14 1:46 UA Turbidity) PM) [facility] AND [id number] 18:46:00 Test Item Value Reference Range Interpretation Comments UA Spec Grav (test code = UA Spec Grav) 1.010 [facility] AND [id number] 18:46:00 Test Item Value Reference Range Interpretation Comments UA Color (test code = Light Yellow UA Color) *NA*(07/22/14 1:46 PM) [facility] [id number] 18:46:00 Test Item Value Reference Range Interpretation Comments Magnesium Lvl (test code = Magnesium 1.8 1.8-2.4 Lvl) [facility] Health[id number] 18:46:00 Test Item Value Reference Range Interpretation Comments AGAP (test code = AGAP) 13.2 10.0-20.0 [facility] Health[id number] 18:46:00 Test Item Value Reference Range Interpretation Comments B/C Ratio (test code = B/C Ratio) 18 6-25 [facility] HealthGdsvrhoZOFSKDPZTBAS0407-22-51 18:46:00 Test Item Value Reference Range Interpretation Comments A/G Ratio (test code = A/G Ratio) 1.1 0.7-1.6 [facility] HealthQiydjifQZVRIZPCHBRZ7922-58-69 18:46:00 Test Item Value Reference Range Interpretation Comments Globulin (test code = Globulin) 3.3 2.0-4.0 [facility] HealthGihmkibILGZEHKNBMIW9531-95-07 18:46:00 Test Item Value Reference Range Interpretation Comments eGFR (test code = eGFR) 99 [facility] HealthRxnxwrwWBTYQANOCVGM1081-35-01 18:46:00 Test Item Value Reference Range Interpretation Comments Calcium Lvl (test code = Calcium Lvl) 9.0 8.5-10.5 [facility] HealthVwpsukoXLFFFWESMPAJ5540-95-83 18:46:00 Test Item Value Reference Range Interpretation Comments Chloride Lvl (test code = Chloride Lvl) 106 95-109 [facility] HealthDjrghheQFLHDMEWZZIK7609-97-06 18:46:00 Test Item Value Reference Range Interpretation Comments Creatinine Lvl (test code = Creatinine 0.9 0.5-1.4 Lvl) [facility] HealthNlxzlerFSTPHQSBWBMF2012-55-13 18:46:00 Test Item Value Reference Range Interpretation Comments Potassium Lvl (test code = Potassium 4.2 3.5-5.1 Lvl) [facility] HealthXbpnycoKEAMGEKWLJMX8210-83-78 18:46:00 Test Item Value Reference Range Interpretation Comments Sodium Lvl (test code = Sodium Lvl) 139 135-145 [facility] HealthCbkdjrpPSNONCQRLBNR7922-14-83 18:46:00 Test Item Value Reference Range Interpretation Comments CO2 (test code = CO2) 24 24-32 [facility] HealthBlifezlZTYLZDUVKEDH7991-24-54 18:46:00 Test Item Value Reference Range Interpretation Comments BUN (test code = BUN) 16 7-22 [facility] HealthYuswpndRUDHRPRFQZNN2426-94-04 18:46:00 Test Item Value Reference Range Interpretation Comments Glucose Lvl (test code = Glucose Lvl) 141 70-99 [facility] HealthJqcauiaWTAOZGOLPHRP0719-17-67 18:46:00 Test Item Value Reference Range Interpretation Comments Albumin Lvl (test code = Albumin Lvl) 3.6 3.5-5.0 [facility][id number] 18:46:00 Test Item Value Reference Range Interpretation Comments Alk Phos (test code = Alk Phos) 65 39-136 [facility] HealthCerqimzFFLKEWBZGJRB3235-09-40 18:46:00 Test Item Value Reference Range Interpretation Comments Bili Total (test code = Bili Total) 0.3 0.2-1.3 [facility] HealthIczqcslGYIMUVQKFBBR9192-99-35 18:46:00 Test Item Value Reference Range Interpretation Comments ALT (test code = ALT) 100 See_Comment [Auto mated message] The system which ge nerated this result transmit elizabeth reference range : <=65. The reference range was not used to interpr et this result as lukas l/abnormal. [facility] HealthNasnbjgFCZHCJXEQMMB1001-95-36 18:46:00 Test Item Value Reference Range Interpretation Comments AST (test code = AST) 53 See_Comment [Auto mated message] The system which ge nerated this result transmit elizabeth reference range : <=37. The reference range was not used to interpr et this result as lukas l/abnormal. [facility] HealthVbkklumLRSQZAFAEFEM4527-70-76 18:46:00 Test Item Value Reference Range Interpretation Comments Total Protein (test code = Total 6.9 6.4-8.4 Protein) [facility] ResourcesWhwdcdeAALKZBIJYA1178-97-62 18:46:00 Test Item Value Reference Range Interpretation Comments Eosinophils (test code = 4.2 See_Comment [A utomated message] The Eosinophils) system which ge nerated this result tra nsmitted reference range : <=4.0. The reference r mitra was not used to int erpret this result as normal/abnormal . [facility] Resourc[id number] 18:46:00 Test Item Value Reference Range Interpretation Comments Segs (test code = Segs) 56.4 45.0-75.0 [facility] ResourcesRxphsjaISAZMBHJIX7345-56-47 18:46:00 Test Item Value Reference Range Interpretation Comments Monocytes (test code = Monocytes) 10.3 2.0-12.0 [facility] Resourc[id number] 18:46:00 Test Item Value Reference Range Interpretation Comments Lymphocytes (test code = Lymphocytes) 28.0 20.0-40.0 [facility] ResourcesGeccqodRBRJWPKRFO5668-21-23 18:46:00 Test Item Value Reference Range Interpretation Comments Monocytes # (test code 0.5 See_Comment [Aut omated message] The = Monocytes #) system which generated this result tra nsmitted reference range : <=0.8. The reference r mitra was not used to int erpret this result as normal/abnormal . [facility] ResourcesDyehuvoOPRZLBQIJW6741-22-67 18:46:00 Test Item Value Reference Range Interpretation Comments Basophils (test code = 1.1 See_Comment [Aut omated message] The Basophils) system which ge nerated this result tra nsmitted reference range : <=1.0. The reference r mitra was not used to int erpret this result as normal/abnormal . [facility] Resourc[id number] 18:46:00 Test Item Value Reference Range Interpretation Comments Lymphocytes # (test code = Lymphocytes 1.5 1.0-5.5 #) [facility] Resourc[id number] 18:46:00 Test Item Value Reference Range Interpretation Comments Segs-Bands # (test code = Segs-Bands #) 2.9 1.5-8.1 [facility] ResourcesNunttujONRQSWBFNZ0376-99-00 18:46:00 Test Item Value Reference Range Interpretation Comments Eosinophils # (test code 0.2 See_Comment [A utomated message] The = Eosinophils #) system whic h generated this result tra nsmitted reference range : <=0.5. The reference r mitra was not used to int erpret this result as normal/abnormal . [facility] Resourc[id number] 18:46:00 Test Item Value Reference Range Interpretation Comments Basophils # (test code 0.1 See_Comment [Aut omated message] The = Basophils #) system which generated this result tra nsmitted reference range : <=0.2. The reference r mitra was not used to int erpret this result as normal/abnormal . [facility] ResourcesGselpkzGPLWSMWRHI2819-61-52 18:46:00 Test Item Value Reference Range Interpretation Comments PT (test code = PT) 11.2 s 12.0-14.7 [facility] ResourcesNtepwnjRFSNYFOOHP3220-62-98 18:46:00 Test Item Value Reference Range Interpretation Comments INR (test code = INR) 0.82 0.85-1.17 [facility] ResourcesVyprnmxYTNYJXJQFD0416-55-83 18:46:00 Test Item Value Reference Range Interpretation Comments PTT (test code = PTT) 28.6 s 22.9-35.8 [facility] ResourcesVjytqolFWDDQXZGMT8192-83-35 18:46:00 Test Item Value Reference Range Interpretation Comments MPV (test code = MPV) 8.1 7.4-10.4 [facility] ResourcesBcqkgmfJACVUKRQBS4525-77-82 18:46:00 Test Item Value Reference Range Interpretation Comments Platelet (test code = Platelet) 301 133-450 [facility] ResourcesCtmqwllZPRUQVIZEK2336-95-84 18:46:00 Test Item Value Reference Range Interpretation Comments RDW (test code = RDW) 14.5 11.5-14.[address] [facility]ISEJVZFXPA8300-79-93 18:46:00 Test Item Value Reference Range Interpretation Comments RBC (test code = RBC) 4.84 4.70-6.10 [facility]JtirrsvRRHSLNPAXM5402-07-67 18:46:00 Test Item Value Reference Range Interpretation Comments Hgb (test code = Hgb) 14.4 14.0-18.0 [facility] HospitalBqhjkuzMIZBDWLXHQ0047-44-52 18:46:00 Test Item Value Reference Range Interpretation Comments WBC (test code = WBC) 5.2 3.7-10.4 [facility] HospitalMxmyfoqIQJHAKZYZL9618-22-70 18:46:00 Test Item Value Reference Range Interpretation Comments MCH (test code = MCH) 29.8 pg 27.0-31.0 [facility] HospitalFmiwfzqEKMKNJMEIA0252-56-33 18:46:00 Test Item Value Reference Range Interpretation Comments MCV (test code = MCV) 92.0 80.0-94.[address] [facility]FzicipjLJPOILROZO8530-38-57 18:46:00 Test Item Value Reference Range Interpretation Comments Hct (test code = Hct) 44.5 42.0-54.[address] [facility]VuxusatBMACBOIMUP1323-56-24 18:46:00 Test Item Value Reference Range Interpretation Comments MCHC (test code = MCHC) 32.4 32.0-36.[address] [facility]NazklblUUNLVZYJES9213-58-93 18:46:00 Test Item Value Reference Range Interpretation Comments [place]-Hep C Ab (test Negative *NA*(07/22/14 code = [place]-Hep C 1:46 PM) Ab) [facility] AND [id number] 18:46:00 Test Item Value Reference Range Interpretation Comments UA Urobilinogen (test code = UA <=1.0 mg/dL 0.1-1.0 Urobilinogen) [facility] [id number] 18:46:00 Test Item Value Reference Range Interpretation Comments UA Sq Epi (test code = UA Sq Epi) None Seen [facility] AND [id number] 18:46:00 Test Item Value Reference Range Interpretation Comments UA Leuk Est (test Negative (07/22/14 1:46 code = UA Leuk Est) PM) [facility] AND [id number] 18:46:00 Test Item Value Reference Range Interpretation Comments UA Nitrite (test code Negative (07/22/14 1:46 = UA Nitrite) PM) [facility] AND [id number] 18:46:00 Test Item Value Reference Range Interpretation Comments UA Blood (test code = Negative (07/22/14 1:46 UA Blood) PM) [facility] AND [id number] 18:46:00 Test Item Value Reference Range Interpretation Comments UA Ketones (test code = UA Negative mg/dL Ketones) [facility] AND [id number] 18:46:00 Test Item Value Reference Range Interpretation Comments UA Bili (test code = Negative *NA*(07/22/14 UA Bili) 1:46 PM) [facility] AND [id number] 18:46:00 Test Item Value Reference Range Interpretation Comments UA Bacteria (test code = UA Occasional /HPF Bacteria) [facility] AND [id number] 18:46:00 Test Item Value Reference Range Interpretation Comments UA RBC (test code = no gt See_Comment [Automa elizabeth message] The UA RBC) system which ge nerated this result transmit elizabeth reference range : <=2. The reference range was not used to interpr et this result as lukas l/abnormal. [facility] AND [id number] 18:46:00 Test Item Value Reference Range Interpretation Comments UA WBC (test code = 1 See_Comment [Automa elizabeth message] The UA WBC) system which ge nerated this result transmit elizabeth reference range : <=5. The reference range was not used to interpr et this result as lukas l/abnormal. [facility] AND [id number] 18:46:00 Test Item Value Reference Range Interpretation Comments UA Glucose (test code = UA Glucose) 30 mg/dL [facility] AND [id number] 18:46:00 Test Item Value Reference Range Interpretation Comments UA Protein (test code = UA Negative mg/dL Protein) [facility] AND [id number] 18:46:00 Test Item Value Reference Range Interpretation Comments UA pH (test code = UA pH) 6.5 5.0-8.0 [facility] AND [id number] 18:46:00 Test Item Value Reference Range Interpretation Comments UA Turbidity (test code = Clear (07/22/14 1:46 UA Turbidity) PM) [facility] [id number] 18:46:00 Test Item Value Reference Range Interpretation Comments UA Spec Grav (test code = UA Spec Grav) 1.010 [facility] AND [id number] 18:46:00 Test Item Value Reference Range Interpretation Comments UA Color (test code = Light Yellow UA Color) *NA*(07/22/14 1:46 PM) [facility]annCHE[facility] [id number] 18:46:00 Test Item Value Reference Range Interpretation Comments Magnesium Lvl (test code = Magnesium 1.8 1.8-2.4 Lvl) [facility] HealthSxgenwvJEOEKKQOBMWC7112-42-17 18:46:00 Test Item Value Reference Range Interpretation Comments AGAP (test code = AGAP) 13.2 10.0-20.0 [facility] H[id number] 18:46:00 Test Item Value Reference Range Interpretation Comments B/C Ratio (test code = B/C Ratio) 18 6-25 [facility] HealthPnaptfeMVWVRDBOBDGY5608-01-61 18:46:00 Test Item Value Reference Range Interpretation Comments A/G Ratio (test code = A/G Ratio) 1.1 0.7-1.6 [facility] Hea[id number] 18:46:00 Test Item Value Reference Range Interpretation Comments Globulin (test code = Globulin) 3.3 2.0-4.0 [facility] HealthOilazdsJJFJXAJVALRY6549-23-33 18:46:00 Test Item Value Reference Range Interpretation Comments eGFR (test code = eGFR) 99 [facility] HealthHbqxoefXCFSJMRFTBYF2354-26-92 18:46:00 Test Item Value Reference Range Interpretation Comments Calcium Lvl (test code = Calcium Lvl) 9.0 8.5-10.5 [facility] HealthZrelakbBODGBNSXZQGH7279-57-28 18:46:00 Test Item Value Reference Range Interpretation Comments Chloride Lvl (test code = Chloride Lvl) 106 95-109 [facility] HealthVpxrwnoTOZWEOKIJOAU4023-08-66 18:46:00 Test Item Value Reference Range Interpretation Comments Creatinine Lvl (test code = Creatinine 0.9 0.5-1.4 Lvl) [facility] HealthGpuuxzlVCIOUNNQLSCF8257-78-64 18:46:00 Test Item Value Reference Range Interpretation Comments Potassium Lvl (test code = Potassium 4.2 3.5-5.1 Lvl) [facility] HealthQdchwqqZBITOCBPLLWQ7526-20-46 18:46:00 Test Item Value Reference Range Interpretation Comments Sodium Lvl (test code = Sodium Lvl) 139 135-145 [facility] HealthOytfndgEDWKQDEMFCWL4541-29-69 18:46:00 Test Item Value Reference Range Interpretation Comments CO2 (test code = CO2) 24 24-32 [facility] HealthCxpncioVHSGKKVVQLPM3203-82-55 18:46:00 Test Item Value Reference Range Interpretation Comments BUN (test code = BUN) 16 7-22 [facility] HealthPfwikdoGTEJIPUBJNZC5304-18-26 18:46:00 Test Item Value Reference Range Interpretation Comments Glucose Lvl (test code = Glucose Lvl) 141 70-99 [facility] HealthVswmsbiWPYBPMACXYUY8036-11-74 18:46:00 Test Item Value Reference Range Interpretation Comments Albumin Lvl (test code = Albumin Lvl) 3.6 3.5-5.0 [facility] HealthXechnyaXIKWCNRTBQZK5277-98-54 18:46:00 Test Item Value Reference Range Interpretation Comments Alk Phos (test code = Alk Phos) 65 39-136 [facility] HealthGqhnyniHLCPFSBNOJJN4037-19-68 18:46:00 Test Item Value Reference Range Interpretation Comments Bili Total (test code = Bili Total) 0.3 0.2-1.3 [facility] HealthTylnaeuLXPVBJIVRPQK9160-72-83 18:46:00 Test Item Value Reference Range Interpretation Comments ALT (test code = ALT) 100 See_Comment [Auto mated message] The system which ge nerated this result transmit elizabeth reference range : <=65. The reference range was not used to interpr et this result as lukas l/abnormal. [facility] HealthHaaqtarCVSUIYNWKJSQ0904-85-40 18:46:00 Test Item Value Reference Range Interpretation Comments AST (test code = AST) 53 See_Comment [Auto mated message] The system which ge nerated this result transmit elizabeth reference range : <=37. The reference range was not used to interpr et this result as lukas l/abnormal. [facility] HealthDgvlubaTEBOTJFCKEAD7157-06-56 18:46:00 Test Item Value Reference Range Interpretation Comments Total Protein (test code = Total 6.9 6.4-8.4 Protein) [facility]KjhihklAWBPPBGJOD2170-26-51 18:46:00 Test Item Value Reference Range Interpretation Comments Eosinophils (test code = 4.2 See_Comment [A utomated message] The Eosinophils) system which ge nerated this result tra nsmitted reference range : <=4.0. The reference r mitra was not used to int erpret this result as normal/abnormal . [facility] ResourcesXhmukcmZHGEXIRYDN0176-14-23 18:46:00 Test Item Value Reference Range Interpretation Comments Segs (test code = Segs) 56.4 45.0-75.0 [facility] Resourc[id number] 18:46:00 Test Item Value Reference Range Interpretation Comments Monocytes (test code = Monocytes) 10.3 2.0-12.0 [facility] ResourcesQwfknmbBKPPTGGEAN8791-57-66 18:46:00 Test Item Value Reference Range Interpretation Comments Lymphocytes (test code = Lymphocytes) 28.0 20.0-40.0 [facility] ResourcesCwfmkpjYFLJWJRRSZ5705-88-90 18:46:00 Test Item Value Reference Range Interpretation Comments Monocytes # (test code 0.5 See_Comment [Aut omated message] The = Monocytes #) system which generated this result tra nsmitted reference range : <=0.8. The reference r mitra was not used to int erpret this result as normal/abnormal . [facility] Resourc[id number] 18:46:00 Test Item Value Reference Range Interpretation Comments Basophils (test code = 1.1 See_Comment [Aut omated message] The Basophils) system which ge nerated this result tra nsmitted reference range : <=1.0. The reference r mitra was not used to int erpret this result as normal/abnormal . [facility] ResourcesQywiwqrNMELTPFQSE1037-72-17 18:46:00 Test Item Value Reference Range Interpretation Comments Lymphocytes # (test code = Lymphocytes 1.5 1.0-5.5 #) [facility] Resourc[id number] 18:46:00 Test Item Value Reference Range Interpretation Comments Segs-Bands # (test code = Segs-Bands #) 2.9 1.5-8.1 [facility] ResourcesBakttffVPUUWSIFVV6769-49-92 18:46:00 Test Item Value Reference Range Interpretation Comments Eosinophils # (test code 0.2 See_Comment [A utomated message] The = Eosinophils #) system whic h generated this result tra nsmitted reference range : <=0.5. The reference r mitra was not used to int erpret this result as normal/abnormal . [facility] Resourc[id number] 18:46:00 Test Item Value Reference Range Interpretation Comments Basophils # (test code 0.1 See_Comment [Aut omated message] The = Basophils #) system which generated this result tra nsmitted reference range : <=0.2. The reference r mitra was not used to int erpret this result as normal/abnormal . [facility] ResourcesKsmfdeaAOUXVQNQKH5237-00-26 18:46:00 Test Item Value Reference Range Interpretation Comments PT (test code = PT) 11.2 s 12.0-14.7 [facility] ResourcesQaxaxwiIWDLROCPKH8558-95-98 18:46:00 Test Item Value Reference Range Interpretation Comments INR (test code = INR) 0.82 0.85-1.17 [facility] ResourcesTjastkdNROBHUCAHB8071-01-25 18:46:00 Test Item Value Reference Range Interpretation Comments PTT (test code = PTT) 28.6 s 22.9-35.8 [facility] ResourcesPltygefEKSFAORIYF9300-06-06 18:46:00 Test Item Value Reference Range Interpretation Comments MPV (test code = MPV) 8.1 7.4-10.4 [facility] ResourcesWweajejUGNDOJMSJI3475-39-23 18:46:00 Test Item Value Reference Range Interpretation Comments Platelet (test code = Platelet) 301 133-450 [facility] Resourc[id number] 18:46:00 Test Item Value Reference Range Interpretation Comments RDW (test code = RDW) 14.5 11.5-14.5 [facility] ResourcesHyjeuijDATLAPEKRB9883-38-55 18:46:00 Test Item Value Reference Range Interpretation Comments RBC (test code = RBC) 4.84 4.70-6.10 [facility] ResourcesWgyyqmcFFKXKTTIEF8868-45-65 18:46:00 Test Item Value Reference Range Interpretation Comments Hgb (test code = Hgb) 14.4 14.0-18.0 [facility] ResourcesOsipylgELOWGCWZXO0411-25-28 18:46:00 Test Item Value Reference Range Interpretation Comments WBC (test code = WBC) 5.2 3.7-10.4 [facility] HospitalLsvbsmjRCYFGHUWOC5868-31-98 18:46:00 Test Item Value Reference Range Interpretation Comments MCH (test code = MCH) 29.8 pg 27.0-31.0 [facility] Resourc[id number] 18:46:00 Test Item Value Reference Range Interpretation Comments MCV (test code = MCV) 92.0 80.0-94.0 [facility] ResourcesQmmopguONGHXABNGW5796-23-11 18:46:00 Test Item Value Reference Range Interpretation Comments Hct (test code = Hct) 44.5 42.0-54.[address] [facility]XqcyxhmHYHFSVLPYV9681-96-56 18:46:00 Test Item Value Reference Range Interpretation Comments MCHC (test code = MCHC) 32.4 32.0-36.[address] [facility]BlkrukqRAFBMBECNV8228-69-64 18:46:00 Test Item Value Reference Range Interpretation Comments [place]-Hep C Ab (test Negative *NA*(07/22/14 code = [place]-Hep C 1:46 PM) Ab) [facility] AND [id number] 18:46:00 Test Item Value Reference Range Interpretation Comments UA Urobilinogen (test code = UA <=1.0 mg/dL 0.1-1.0 Urobilinogen) [facility] AND [id number] 18:46:00 Test Item Value Reference Range Interpretation Comments UA Sq Epi (test code = UA Sq Epi) None Seen [facility] AND [id number] 18:46:00 Test Item Value Reference Range Interpretation Comments UA Leuk Est (test Negative (07/22/14 1:46 code = UA Leuk Est) PM) [facility] AND [id number] 18:46:00 Test Item Value Reference Range Interpretation Comments UA Nitrite (test code Negative (07/22/14 1:46 = UA Nitrite) PM) [facility] AND [id number] 18:46:00 Test Item Value Reference Range Interpretation Comments UA Blood (test code = Negative (07/22/14 1:46 UA Blood) PM) [facility] AND [id number] 18:46:00 Test Item Value Reference Range Interpretation Comments UA Ketones (test code = UA Negative mg/dL Ketones) [facility] AND [id number] 18:46:00 Test Item Value Reference Range Interpretation Comments UA Bili (test code = Negative *NA*(07/22/14 UA Bili) 1:46 PM) [facility] [id number] 18:46:00 Test Item Value Reference Range Interpretation Comments UA Bacteria (test code = UA Occasional /HPF Bacteria) [facility] [id number] 18:46:00 Test Item Value Reference Range Interpretation Comments UA RBC (test code = no gt See_Comment [Automa elizabeth message] The UA RBC) system which ge nerated this result transmit elizabeth reference range : <=2. The reference range was not used to interpr et this result as lukas l/abnormal. [facility] [id number] 18:46:00 Test Item Value Reference Range Interpretation Comments UA WBC (test code = 1 See_Comment [Automa elizabeth message] The UA WBC) system which ge nerated this result transmit elizabeth reference range : <=5. The reference range was not used to interpr et this result as lukas l/abnormal. [facility] [id number] 18:46:00 Test Item Value Reference Range Interpretation Comments UA Glucose (test code = UA Glucose) 30 mg/dL [facility] [id number] 18:46:00 Test Item Value Reference Range Interpretation Comments UA Protein (test code = UA Negative mg/dL Protein) [facility] [id number] 18:46:00 Test Item Value Reference Range Interpretation Comments UA pH (test code = UA pH) 6.5 5.0-8.0 [facility] [id number] 18:46:00 Test Item Value Reference Range Interpretation Comments UA Turbidity (test code = Clear (07/22/14 1:46 UA Turbidity) PM) [facility] [id number] 18:46:00 Test Item Value Reference Range Interpretation Comments UA Spec Grav (test code = UA Spec Grav) 1.010 [facility] [id number] 18:46:00 Test Item Value Reference Range Interpretation Comments UA Color (test code = Light Yellow UA Color) *NA*(07/22/14 1:46 PM) [facility] [id number] 18:46:00 Test Item Value Reference Range Interpretation Comments Magnesium Lvl (test code = Magnesium 1.8 1.8-2.4 Lvl) [facility] HealthYdrxztaDOQSUNMWRQQN3664-96-62 18:46:00 Test Item Value Reference Range Interpretation Comments AGAP (test code = AGAP) 13.2 10.0-20.0 [facility] HealthYpydgqwZSGCOPBLUMOI4982-10-45 18:46:00 Test Item Value Reference Range Interpretation Comments B/C Ratio (test code = B/C Ratio) 18 6-25 [facility] HealthKevxywnXXBQYHRMUFQN0450-27-85 18:46:00 Test Item Value Reference Range Interpretation Comments A/G Ratio (test code = A/G Ratio) 1.1 0.7-1.6 [facility] HealthGkyutypBVEYHZJKNXZK3355-51-54 18:46:00 Test Item Value Reference Range Interpretation Comments Globulin (test code = Globulin) 3.3 2.0-4.0 [facility] HealthPdwnhmmZFESQPZQGDBA2533-96-06 18:46:00 Test Item Value Reference Range Interpretation Comments eGFR (test code = eGFR) 99 [facility] HealthMrzdakdNAGGWWCYWUJL4585-23-82 18:46:00 Test Item Value Reference Range Interpretation Comments Calcium Lvl (test code = Calcium Lvl) 9.0 8.5-10.5 [facility] HealthZearvgxCRZHFPSNNZJE2756-07-04 18:46:00 Test Item Value Reference Range Interpretation Comments Chloride Lvl (test code = Chloride Lvl) 106 95-109 [facility] HealthGbftiieYJHLYEIHXSAG0736-13-26 18:46:00 Test Item Value Reference Range Interpretation Comments Creatinine Lvl (test code = Creatinine 0.9 0.5-1.4 Lvl) [facility] HealthZsyblhuTTDDPWBKYNIU4670-42-52 18:46:00 Test Item Value Reference Range Interpretation Comments Potassium Lvl (test code = Potassium 4.2 3.5-5.1 Lvl) [facility] [place] [facility]KuhpvfyDLGXLGMYJGVE7795-95-55 18:46:00 Test Item Value Reference Range Interpretation Comments Sodium Lvl (test code = Sodium Lvl) 139 135-145 [facility] HealthIorwtlnNDPHMKDJVNKT7865-49-46 18:46:00 Test Item Value Reference Range Interpretation Comments CO2 (test code = CO2) 24 24-32 [facility] HealthMwxlgtqFMPBDVAYYOFV8327-44-26 18:46:00 Test Item Value Reference Range Interpretation Comments BUN (test code = BUN) 16 7-22 [facility] HealthNyobypbUHOVBLHQBHYR3407-94-90 18:46:00 Test Item Value Reference Range Interpretation Comments Glucose Lvl (test code = Glucose Lvl) 141 70-99 [facility] Health[id number] 18:46:00 Test Item Value Reference Range Interpretation Comments Albumin Lvl (test code = Albumin Lvl) 3.6 3.5-5.0 [facility] HealthDtniwjpWGXHFWTOLHJG9950-91-36 18:46:00 Test Item Value Reference Range Interpretation Comments Alk Phos (test code = Alk Phos) 65 39-136 [facility] HealthPyjfytlCEZRBPOLAXZW5707-59-45 18:46:00 Test Item Value Reference Range Interpretation Comments Bili Total (test code = Bili Total) 0.3 0.2-1.3 [facility] [place] HealthXxmmryvFAIHIRKALGMG9535-54-54 18:46:00 Test Item Value Reference Range Interpretation Comments ALT (test code = ALT) 100 See_Comment [Auto mated message] The system which ge nerated this result transmit elizabeth reference range : <=65. The reference range was not used to interpr et this result as lukas l/abnormal. [facility] HealthFompzrqESKZWYCVDOAX7956-22-90 18:46:00 Test Item Value Reference Range Interpretation Comments AST (test code = AST) 53 See_Comment [Auto mated message] The system which ge nerated this result transmit elizabeth reference range : <=37. The reference range was not used to interpr et this result as lukas l/abnormal. [facility] HealthViwiyllLGOONEPGPFFT7482-17-55 18:46:00 Test Item Value Reference Range Interpretation Comments Total Protein (test code = Total 6.9 6.4-8.4 Protein) [facility] ResourcesUgizadfPMFFGSEPAM7772-66-30 18:46:00 Test Item Value Reference Range Interpretation Comments Eosinophils (test code = 4.2 See_Comment [A utomated message] The Eosinophils) system which ge nerated this result tra nsmitted reference range : <=4.0. The reference r mitra was not used to int erpret this result as normal/abnormal . [facility] ResourcesIjvqmvfEOSXVRRUZN6739-15-91 18:46:00 Test Item Value Reference Range Interpretation Comments Segs (test code = Segs) 56.4 45.0-75.0 [facility] ResourcesKyfiomoQUFAMSDHNA4873-37-02 18:46:00 Test Item Value Reference Range Interpretation Comments Monocytes (test code = Monocytes) 10.3 2.0-12.0 [facility] ResourcesGazabymXSVCVZRUWQ2813-35-39 18:46:00 Test Item Value Reference Range Interpretation Comments Lymphocytes (test code = Lymphocytes) 28.0 20.0-40.0 [facility] ResourcesYrfwomhXAPHQBCJQK8881-56-75 18:46:00 Test Item Value Reference Range Interpretation Comments Monocytes # (test code 0.5 See_Comment [Aut omated message] The = Monocytes #) system which generated this result tra nsmitted reference range : <=0.8. The reference r mitra was not used to int erpret this result as normal/abnormal . [facility] ResourcesGqifyoxFFIVEWWXIR7644-90-72 18:46:00 Test Item Value Reference Range Interpretation Comments Basophils (test code = 1.1 See_Comment [Aut omated message] The Basophils) system which ge nerated this result tra nsmitted reference range : <=1.0. The reference r mitra was not used to int erpret this result as normal/abnormal . [facility] ResourcesYfooyqwAUVHUIEHVA5083-33-85 18:46:00 Test Item Value Reference Range Interpretation Comments Lymphocytes # (test code = Lymphocytes 1.5 1.0-5.5 #) [facility] ResourcesYqettmeLZSRERNFMD1862-59-59 18:46:00 Test Item Value Reference Range Interpretation Comments Segs-Bands # (test code = Segs-Bands #) 2.9 1.5-8.1 [facility] ResourcesFjfverbJXZGKHXMFB1394-79-09 18:46:00 Test Item Value Reference Range Interpretation Comments Eosinophils # (test code 0.2 See_Comment [A utomated message] The = Eosinophils #) system whic h generated this result tra nsmitted reference range : <=0.5. The reference r mitra was not used to int erpret this result as normal/abnormal . [facility] ResourcesUullzjqMEQECYSIWP5790-37-09 18:46:00 Test Item Value Reference Range Interpretation Comments Basophils # (test code 0.1 See_Comment [Aut omated message] The = Basophils #) system which generated this result tra nsmitted reference range : <=0.2. The reference r mitra was not used to int erpret this result as normal/abnormal . [facility] ResourcesHgasjdjCWRVIKRMUA8532-05-81 18:46:00 Test Item Value Reference Range Interpretation Comments PT (test code = PT) 11.2 s 12.0-14.7 [facility] ResourcesZdyldjlKFHPROXZSG5601-30-38 18:46:00 Test Item Value Reference Range Interpretation Comments INR (test code = INR) 0.82 0.85-1.17 [facility] ResourcesTnehhncEUDDIJPJBT2420-39-48 18:46:00 Test Item Value Reference Range Interpretation Comments PTT (test code = PTT) 28.6 s 22.9-35.8 [facility] ResourcesIhsdmneFUETBBZUDR3151-26-71 18:46:00 Test Item Value Reference Range Interpretation Comments MPV (test code = MPV) 8.1 7.4-10.4 [facility] ResourcesVkrltaoFGOYBQSGPZ3546-89-52 18:46:00 Test Item Value Reference Range Interpretation Comments Platelet (test code = Platelet) 301 133-450 [facility] ResourcesTrxfyosJJPVGABPWR8994-81-26 18:46:00 Test Item Value Reference Range Interpretation Comments RDW (test code = RDW) 14.5 11.5-14.5 [facility] ResourcesJrmczmyZWHTVEXVCX2717-61-41 18:46:00 Test Item Value Reference Range Interpretation Comments RBC (test code = RBC) 4.84 4.70-6.10 [facility] ResourcesPgkggvcVVRMWPGHLW6888-72-59 18:46:00 Test Item Value Reference Range Interpretation Comments Hgb (test code = Hgb) 14.4 14.0-18.0 [facility] ResourcesArhfgxbVLYKBCRAPI4205-60-76 18:46:00 Test Item Value Reference Range Interpretation Comments WBC (test code = WBC) 5.2 3.7-10.4 [facility] ResourcesWruladzLPVTJMQUJK2917-22-61 18:46:00 Test Item Value Reference Range Interpretation Comments MCH (test code = MCH) 29.8 pg 27.0-31.0 [facility] ResourcesDekygglTKZZKIUUPH1682-56-23 18:46:00 Test Item Value Reference Range Interpretation Comments MCV (test code = MCV) 92.0 80.0-94.0 [facility] ResourcesRekefagVVAMAWOLOD4879-34-72 18:46:00 Test Item Value Reference Range Interpretation Comments Hct (test code = Hct) 44.5 42.0-54.0 [facility] ResourcesXoldzguLOGZABBBWS6865-20-22 18:46:00 Test Item Value Reference Range Interpretation Comments MCHC (test code = MCHC) 32.4 32.0-36.0 [facility]enuwuZBGRECXJEZ4068-40-53 18:46:00 Test Item Value Reference Range Interpretation Comments [place]-Hep C Ab (test Negative *NA*(07/22/14 code = [place]-Hep C 1:46 PM) Ab) [facility] [id number] 18:46:00 Test Item Value Reference Range Interpretation Comments UA Urobilinogen (test code = UA <=1.0 mg/dL 0.1-1.0 Urobilinogen) [facility] [id number] 18:46:00 Test Item Value Reference Range Interpretation Comments UA Sq Epi (test code = UA Sq Epi) None [facility] [id number] 18:46:00 Test Item Value Reference Range Interpretation Comments UA Leuk Est (test Negative (07/22/14 1:46 code = UA Leuk Est) PM) [facility] [id number] 18:46:00 Test Item Value Reference Range Interpretation Comments UA Nitrite (test code Negative (07/22/14 1:46 = UA Nitrite) PM) [facility] [id number] 18:46:00 Test Item Value Reference Range Interpretation Comments UA Blood (test code = Negative (07/22/14 1:46 UA Blood) PM) [facility] [id number] 18:46:00 Test Item Value Reference Range Interpretation Comments UA Ketones (test code = UA Negative mg/dL Ketones) [facility] [id number] 18:46:00 Test Item Value Reference Range Interpretation Comments UA Bili (test code = Negative *NA*(07/22/14 UA Bili) 1:46 PM) [facility] [id number] 18:46:00 Test Item Value Reference Range Interpretation Comments UA Bacteria (test code = UA Occasional /HPF Bacteria) [facility] [id number] 18:46:00 Test Item Value Reference Range Interpretation Comments UA RBC (test code = no gt See_Comment [Automa elizabeth message] The UA RBC) system which ge nerated this result transmit elizabeth reference range : <=2. The reference range was not used to interpr et this result as lukas l/abnormal. [facility] AND [id number] 18:46:00 Test Item Value Reference Range Interpretation Comments UA WBC (test code = 1 See_Comment [Automa elizabeth message] The UA WBC) system which ge nerated this result transmit elizabeth reference range : <=5. The reference range was not used to interpr et this result as lukas l/abnormal. [facility] AND [id number] 18:46:00 Test Item Value Reference Range Interpretation Comments UA Glucose (test code = UA Glucose) 30 mg/dL [facility] AND [id number] 18:46:00 Test Item Value Reference Range Interpretation Comments UA Protein (test code = UA Negative mg/dL Protein) [facility] AND [id number] 18:46:00 Test Item Value Reference Range Interpretation Comments UA pH (test code = UA pH) 6.5 5.0-8.0 [facility] AND [id number] 18:46:00 Test Item Value Reference Range Interpretation Comments UA Turbidity (test code = Clear (07/22/14 1:46 UA Turbidity) PM) [facility] AND [id number] 18:46:00 Test Item Value Reference Range Interpretation Comments UA Spec Grav (test code = UA Spec Grav) 1.010 [facility] AND [id number] 18:46:00 Test Item Value Reference Range Interpretation Comments UA Color (test code = Light Yellow UA Color) *NA*(07/22/14 1:46 PM) [facility] [id number] 18:46:00 Test Item Value Reference Range Interpretation Comments Magnesium Lvl (test code = Magnesium 1.8 1.8-2.4 Lvl) [facility] HealthJmvciypIITMQIFOZEVJ2833-00-43 18:46:00 Test Item Value Reference Range Interpretation Comments AGAP (test code = AGAP) 13.2 10.0-20.0 [facility] HealthWqpcspmERIPSHNFDTSF2488-54-14 18:46:00 Test Item Value Reference Range Interpretation Comments B/C Ratio (test code = B/C Ratio) 18 6-25 [facility] HealthTowqapcYLXYXBMHFYAS4509-72-58 18:46:00 Test Item Value Reference Range Interpretation Comments A/G Ratio (test code = A/G Ratio) 1.1 0.7-1.6 [facility] H[id number] 18:46:00 Test Item Value Reference Range Interpretation Comments Globulin (test code = Globulin) 3.3 2.0-4.0 [facility] HealthAgkhurcXMCUTSXSJBXY6674-83-10 18:46:00 Test Item Value Reference Range Interpretation Comments eGFR (test code = eGFR) 99 [facility] HealthOdlvbdkEQVYGLFYZDAX7862-97-49 18:46:00 Test Item Value Reference Range Interpretation Comments Calcium Lvl (test code = Calcium Lvl) 9.0 8.5-10.5 [facility] HealthVyhyeomLZDOUMFNCKZJ4331-32-36 18:46:00 Test Item Value Reference Range Interpretation Comments Chloride Lvl (test code = Chloride Lvl) 106 95-109 [facility] HealthOukhmtwETINTLIMPWMK1964-13-23 18:46:00 Test Item Value Reference Range Interpretation Comments Creatinine Lvl (test code = Creatinine 0.9 0.5-1.4 Lvl) [facility] HealthRstprqjRCIDCZCQCBXQ5910-40-90 18:46:00 Test Item Value Reference Range Interpretation Comments Potassium Lvl (test code = Potassium 4.2 3.5-5.1 Lvl) [facility] HealthFbpuypaADMGFYFFBCLU6152-97-38 18:46:00 Test Item Value Reference Range Interpretation Comments Sodium Lvl (test code = Sodium Lvl) 139 135-145 [facility] HealthOtzsfboQPVOWTMIIYDJ5798-24-45 18:46:00 Test Item Value Reference Range Interpretation Comments CO2 (test code = CO2) 24 24-32 [facility] HealthHhqpnwfAPARTLEZBCWV3958-70-67 18:46:00 Test Item Value Reference Range Interpretation Comments BUN (test code = BUN) 16 7-22 [facility] HealthLzsziasBBRUDAVPBJHF4309-20-86 18:46:00 Test Item Value Reference Range Interpretation Comments Glucose Lvl (test code = Glucose Lvl) 141 70-99 [facility] HealthMgzxeagBQOYYMHHWYSO8927-36-04 18:46:00 Test Item Value Reference Range Interpretation Comments Albumin Lvl (test code = Albumin Lvl) 3.6 3.5-5.0 [facility] HealthNlahifvLZFIHZMTDIKG4776-75-57 18:46:00 Test Item Value Reference Range Interpretation Comments Alk Phos (test code = Alk Phos) 65 39-136 [facility] HealthCshlzxaPQKCAZZTHXHE4188-47-49 18:46:00 Test Item Value Reference Range Interpretation Comments Bili Total (test code = Bili Total) 0.3 0.2-1.3 [facility] HealthNrzbnwtONHVCZPOUBRO0923-54-53 18:46:00 Test Item Value Reference Range Interpretation Comments ALT (test code = ALT) 100 See_Comment [Auto mated message] The system which ge nerated this result transmit elizabeth reference range : <=65. The reference range was not used to interpr et this result as lukas l/abnormal. [facility] HealthSzvcbexARNIZRTUOIUP9130-19-33 18:46:00 Test Item Value Reference Range Interpretation Comments AST (test code = AST) 53 See_Comment [Auto mated message] The system which ge nerated this result transmit elizabeth reference range : <=37. The reference range was not used to interpr et this result as lukas l/abnormal. [facility] HealthUrjmnnePKZTUFDLLETT2946-48-22 18:46:00 Test Item Value Reference Range Interpretation Comments Total Protein (test code = Total 6.9 6.4-8.4 Protein) [facility]EjskpdbGYFSCWAIJC0798-18-92 18:46:00 Test Item Value Reference Range Interpretation Comments Eosinophils (test code = 4.2 See_Comment [A utomated message] The Eosinophils) system which ge nerated this result tra nsmitted reference range : <=4.0. The reference r mitra was not used to int erpret this result as normal/abnormal . [facility] ResourcesRxtatzcIOTKJPYRUS1819-65-35 18:46:00 Test Item Value Reference Range Interpretation Comments Segs (test code = Segs) 56.4 45.0-75.0 [facility] ResourcesWrldkbkHDCRUEEXEH6300-71-83 18:46:00 Test Item Value Reference Range Interpretation Comments Monocytes (test code = Monocytes) 10.3 2.0-12.0 [facility] ResourcesJfjxfstREAVHDCBVV4325-49-97 18:46:00 Test Item Value Reference Range Interpretation Comments Lymphocytes (test code = Lymphocytes) 28.0 20.0-40.0 [facility] ResourcesLhjvumoEVXJRJFCVQ4926-43-29 18:46:00 Test Item Value Reference Range Interpretation Comments Monocytes # (test code 0.5 See_Comment [Aut omated message] The = Monocytes #) system which generated this result tra nsmitted reference range : <=0.8. The reference r mitra was not used to int erpret this result as normal/abnormal . [facility] ResourcesDkidpclLAARDHSSHH7042-92-25 18:46:00 Test Item Value Reference Range Interpretation Comments Basophils (test code = 1.1 See_Comment [Aut omated message] The Basophils) system which ge nerated this result tra nsmitted reference range : <=1.0. The reference r mitra was not used to int erpret this result as normal/abnormal . [facility] ResourcesBxgcxffZKHOGPVURT6304-12-03 18:46:00 Test Item Value Reference Range Interpretation Comments Lymphocytes # (test code = Lymphocytes 1.5 1.0-5.5 #) [facility] ResourcesEctywzsKOWDHIYOND6955-25-30 18:46:00 Test Item Value Reference Range Interpretation Comments Segs-Bands # (test code = Segs-Bands #) 2.9 1.5-8.1 [facility] ResourcesDvyfigdQRDUBOJKGE9734-44-76 18:46:00 Test Item Value Reference Range Interpretation Comments Eosinophils # (test code 0.2 See_Comment [A utomated message] The = Eosinophils #) system whic h generated this result tra nsmitted reference range : <=0.5. The reference r mitra was not used to int erpret this result as normal/abnormal . [facility] ResourcesKpoalsbOKSJNFRXBE6926-20-56 18:46:00 Test Item Value Reference Range Interpretation Comments Basophils # (test code 0.1 See_Comment [Aut omated message] The = Basophils #) system which generated this result tra nsmitted reference range : <=0.2. The reference r mitra was not used to int erpret this result as normal/abnormal . [facility] ResourcesDvfixxxRXPGWPFWMB6381-43-95 18:46:00 Test Item Value Reference Range Interpretation Comments PT (test code = PT) 11.2 s 12.0-14.7 [facility] ResourcesAyjmgazKLWFRZHKMQ8632-87-96 18:46:00 Test Item Value Reference Range Interpretation Comments INR (test code = INR) 0.82 0.85-1.17 [facility] ResourcesLhewzzaTLZDEYMXLA6705-09-35 18:46:00 Test Item Value Reference Range Interpretation Comments PTT (test code = PTT) 28.6 s 22.9-35.8 [facility] ResourcesWgnficgVDNGIMLPZP5991-27-31 18:46:00 Test Item Value Reference Range Interpretation Comments MPV (test code = MPV) 8.1 7.4-10.[address] [facility]zhVGWPTJGEPZ1761-80-63 18:46:00 Test Item Value Reference Range Interpretation Comments Platelet (test code = Platelet) 301 133-450 [facility]ZjhsmwpXJSUUVCEKW4890-89-97 18:46:00 Test Item Value Reference Range Interpretation Comments RDW (test code = RDW) 14.5 11.5-14.[address] [facility]IohjrutYDEGQTYVRZ3257-04-89 18:46:00 Test Item Value Reference Range Interpretation Comments RBC (test code = RBC) 4.84 4.70-6.[address] [facility]VqoblmnICWRUPEFMM9823-80-69 18:46:00 Test Item Value Reference Range Interpretation Comments Hgb (test code = Hgb) 14.4 14.0-18.[address] [facility]MxhxujcHIPQEKOUKO3947-03-88 18:46:00 Test Item Value Reference Range Interpretation Comments WBC (test code = WBC) 5.2 3.7-10.[address] [facility]BksyierQGHPFBIPKQ5132-40-96 18:46:00 Test Item Value Reference Range Interpretation Comments MCH (test code = MCH) 29.8 pg 27.0-31.[address] [facility]ZyotdoiGMSNRVIBPG5396-95-76 18:46:00 Test Item Value Reference Range Interpretation Comments MCV (test code = MCV) 92.0 80.0-94.[address] [facility]PuascxoWTMQPDLONH9687-29-92 18:46:00 Test Item Value Reference Range Interpretation Comments Hct (test code = Hct) 44.5 42.0-54.[address] [facility] HospitalKozreopMWVHATYCJK4122-49-73 18:46:00 Test Item Value Reference Range Interpretation Comments MCHC (test code = MCHC) 32.4 32.0-36.[address] [facility]BpbvaadTVQTPAVYYC0818-07-01 18:46:00 Test Item Value Reference Range Interpretation Comments [place]-Hep C Ab (test Negative *NA*(07/22/14 code = [place]-Hep C 1:46 PM) Ab) [facility] [id number] 18:46:00 Test Item Value Reference Range Interpretation Comments UA Urobilinogen (test code = UA <=1.0 mg/dL 0.1-1.0 Urobilinogen) [facility] [id number] 18:46:00 Test Item Value Reference Range Interpretation Comments UA Sq Epi (test code = UA Sq Epi) None Seen [facility] AND [id number] 18:46:00 Test Item Value Reference Range Interpretation Comments UA Leuk Est (test Negative (07/22/14 1:46 code = UA Leuk Est) PM) [facility] AND [id number] 18:46:00 Test Item Value Reference Range Interpretation Comments UA Nitrite (test code Negative (07/22/14 1:46 = UA Nitrite) PM) [facility] AND [id number] 18:46:00 Test Item Value Reference Range Interpretation Comments UA Blood (test code = Negative (07/22/14 1:46 UA Blood) PM) [facility] AND [id number] 18:46:00 Test Item Value Reference Range Interpretation Comments UA Ketones (test code = UA Negative mg/dL Ketones) [facility] AND [id number] 18:46:00 Test Item Value Reference Range Interpretation Comments UA Bili (test code = Negative *NA*(07/22/14 UA Bili) 1:46 PM) [facility] AND [id number] 18:46:00 Test Item Value Reference Range Interpretation Comments UA Bacteria (test code = UA Occasional /HPF Bacteria) [facility] AND [id number] 18:46:00 Test Item Value Reference Range Interpretation Comments UA RBC (test code = no gt See_Comment [Automa elizabeth message] The UA RBC) system which ge nerated this result transmit elizabeth reference range : <=2. The reference range was not used to interpr et this result as lukas l/abnormal. [facility] AND [id number] 18:46:00 Test Item Value Reference Range Interpretation Comments UA WBC (test code = 1 See_Comment [Automa elizabeth message] The UA WBC) system which ge nerated this result transmit elizabeth reference range : <=5. The reference range was not used to interpr et this result as lukas l/abnormal. [facility] AND [id number] 18:46:00 Test Item Value Reference Range Interpretation Comments UA Glucose (test code = UA Glucose) 30 mg/dL [facility] AND [id number] 18:46:00 Test Item Value Reference Range Interpretation Comments UA Protein (test code = UA Negative mg/dL Protein) [facility] [id number] 18:46:00 Test Item Value Reference Range Interpretation Comments UA pH (test code = UA pH) 6.5 5.0-8.0 [facility] [id number] 18:46:00 Test Item Value Reference Range Interpretation Comments UA Turbidity (test code = Clear (07/22/14 1:46 UA Turbidity) PM) [facility] AND [id number] 18:46:00 Test Item Value Reference Range Interpretation Comments UA Spec Grav (test code = UA Spec Grav) 1.010 [facility] AND [id number] 18:46:00 Test Item Value Reference Range Interpretation Comments UA Color (test code = Light Yellow UA Color) *NA*(07/22/14 1:46 PM) [facility] [id number] 18:46:00 Test Item Value Reference Range Interpretation Comments Magnesium Lvl (test code = Magnesium 1.8 1.8-2.4 Lvl) [facility] CenterBxbrrmhYDPSBVTDKSBQ5909-51-15 18:46:00 Test Item Value Reference Range Interpretation Comments AGAP (test code = AGAP) 13.2 10.0-20.[address] [facility] CenterDmvejigAYSZBIDVDORH8103-23-72 18:46:00 Test Item Value Reference Range Interpretation Comments B/C Ratio (test code = B/C Ratio) 18 6-[address] [facility] [facility] CenterHjwxpmyKPXHEMJISBBK3128-28-59 18:46:00 Test Item Value Reference Range Interpretation Comments A/G Ratio (test code = A/G Ratio) 1.1 0.7-1.6 [facility] CenterJngbbvcFSQTHEXDAOOR5564-66-91 18:46:00 Test Item Value Reference Range Interpretation Comments Globulin (test code = Globulin) 3.3 2.0-4.0 [facility][id number] 18:46:00 Test Item Value Reference Range Interpretation Comments eGFR (test code = eGFR) 99 [facility]AqmrvciZODIJPBKIMJR6199-05-50 18:46:00 Test Item Value Reference Range Interpretation Comments Calcium Lvl (test code = Calcium Lvl) 9.0 8.5-10.5 [facility] HealthOwnsqlgAYTYVULAAALH2491-81-87 18:46:00 Test Item Value Reference Range Interpretation Comments Chloride Lvl (test code = Chloride Lvl) 106 95-109 [facility] HealthDiaeoocGMWMMRVGBTWZ9315-71-91 18:46:00 Test Item Value Reference Range Interpretation Comments Creatinine Lvl (test code = Creatinine 0.9 0.5-1.4 Lvl) [facility] HealthBtpkrunKUVMLJYSWDKA6356-37-86 18:46:00 Test Item Value Reference Range Interpretation Comments Potassium Lvl (test code = Potassium 4.2 3.5-5.1 Lvl) [facility] HealthNvjdblxBCYAGFCWCHCS1790-69-52 18:46:00 Test Item Value Reference Range Interpretation Comments Sodium Lvl (test code = Sodium Lvl) 139 135-145 [facility] HealthByucohoAGGPDFVSSZLX0614-35-22 18:46:00 Test Item Value Reference Range Interpretation Comments CO2 (test code = CO2) 24 24-32 [facility] HealthDwmnybuVBSNKTSLNTSU4544-30-65 18:46:00 Test Item Value Reference Range Interpretation Comments BUN (test code = BUN) 16 7-22 [facility] HealthUizsdcsLGXCFJDUYRHP1852-51-66 18:46:00 Test Item Value Reference Range Interpretation Comments Glucose Lvl (test code = Glucose Lvl) 141 70-99 [facility] HealthWxjtvxqGGTUXEURVFHH4669-47-02 18:46:00 Test Item Value Reference Range Interpretation Comments Albumin Lvl (test code = Albumin Lvl) 3.6 3.5-5.0 [facility] HealthExsvdmjXINATIHSPGNP5217-43-02 18:46:00 Test Item Value Reference Range Interpretation Comments Alk Phos (test code = Alk Phos) 65 39-136 [facility] HealthSdvrxfjPOWQZZAWSQWL4621-50-02 18:46:00 Test Item Value Reference Range Interpretation Comments Bili Total (test code = Bili Total) 0.3 0.2-1.3 [facility] HealthCobbngpECEQYPOLXFTF1700-52-30 18:46:00 Test Item Value Reference Range Interpretation Comments ALT (test code = ALT) 100 See_Comment [Auto mated message] The system which ge nerated this result transmit elizabeth reference range : <=65. The reference range was not used to interpr et this result as lukas l/abnormal. [facility] HealthOzevnhoIUKHCAJBUSZG8233-04-29 18:46:00 Test Item Value Reference Range Interpretation Comments AST (test code = AST) 53 See_Comment [Auto mated message] The system which ge nerated this result transmit elizabeth reference range : <=37. The reference range was not used to interpr et this result as lukas l/abnormal. [facility] HealthBpidaygOBOXRKOMOCIG8588-27-56 18:46:00 Test Item Value Reference Range Interpretation Comments Total Protein (test code = Total 6.9 6.4-8.4 Protein) [facility] ResourcesMmgriwaTIBCRFADOB5969-10-64 18:46:00 Test Item Value Reference Range Interpretation Comments Eosinophils (test code = 4.2 See_Comment [A utomated message] The Eosinophils) system which ge nerated this result tra nsmitted reference range : <=4.0. The reference r mitra was not used to int erpret this result as normal/abnormal . [facility] ResourcesThoczmjDDXYDMVJHU0198-72-28 18:46:00 Test Item Value Reference Range Interpretation Comments Segs (test code = Segs) 56.4 45.0-75.0 [facility] ResourcesSjckucyBLFFGVYYCZ8072-65-91 18:46:00 Test Item Value Reference Range Interpretation Comments Monocytes (test code = Monocytes) 10.3 2.0-12.0 [facility] ResourcesWzjmqnlPQAQCDCRJN3240-08-72 18:46:00 Test Item Value Reference Range Interpretation Comments Lymphocytes (test code = Lymphocytes) 28.0 20.0-40.0 [facility] ResourcesOjfixgqVVJOQTLJPO4059-48-85 18:46:00 Test Item Value Reference Range Interpretation Comments Monocytes # (test code 0.5 See_Comment [Aut omated message] The = Monocytes #) system which generated this result tra nsmitted reference range : <=0.8. The reference r mitra was not used to int erpret this result as normal/abnormal . [facility] ResourcesZucmmtrNNJYIIYQBP1408-27-15 18:46:00 Test Item Value Reference Range Interpretation Comments Basophils (test code = 1.1 See_Comment [Aut omated message] The Basophils) system which ge nerated this result tra nsmitted reference range : <=1.0. The reference r mitra was not used to int erpret this result as normal/abnormal . [facility] Resourc[id number] 18:46:00 Test Item Value Reference Range Interpretation Comments Lymphocytes # (test code = Lymphocytes 1.5 1.0-5.5 #) [facility] ResourcesD[id number] 18:46:00 Test Item Value Reference Range Interpretation Comments Segs-Bands # (test code = Segs-Bands #) 2.9 1.5-8.1 [facility] ResourcesHzncgbpPCRGBOCNGO2917-34-74 18:46:00 Test Item Value Reference Range Interpretation Comments Eosinophils # (test code 0.2 See_Comment [A utomated message] The = Eosinophils #) system whic h generated this result tra nsmitted reference range : <=0.5. The reference r mitra was not used to int erpret this result as normal/abnormal . [facility] ResourcesEqqjlgfFLSVFKWXRF0589-83-55 18:46:00 Test Item Value Reference Range Interpretation Comments Basophils # (test code 0.1 See_Comment [Aut omated message] The = Basophils #) system which generated this result tra nsmitted reference range : <=0.2. The reference r mitra was not used to int erpret this result as normal/abnormal . [facility] ResourcesMaorzevZEOLMQTKEJ8022-60-52 18:46:00 Test Item Value Reference Range Interpretation Comments PT (test code = PT) 11.2 s 12.0-14.7 [facility] ResourcesHvxdafeROKLDUHZPC9967-37-39 18:46:00 Test Item Value Reference Range Interpretation Comments INR (test code = INR) 0.82 0.85-1.17 [facility] ResourcesAxruoudVNYBLPKPOW5464-25-07 18:46:00 Test Item Value Reference Range Interpretation Comments PTT (test code = PTT) 28.6 s 22.9-35.8 [facility] ResourcesRllemvlVGPRIGFJHT6430-68-41 18:46:00 Test Item Value Reference Range Interpretation Comments MPV (test code = MPV) 8.1 7.4-10.4 [facility] ResourcesUivyrufFZTHAVUZSF8029-00-38 18:46:00 Test Item Value Reference Range Interpretation Comments Platelet (test code = Platelet) 301 133-450 [facility] ResourcesIvtprdbXFLTDWQCTU5914-14-57 18:46:00 Test Item Value Reference Range Interpretation Comments RDW (test code = RDW) 14.5 11.5-14.5 [facility] ResourcesPaartucNYSJBTOCDM0181-20-20 18:46:00 Test Item Value Reference Range Interpretation Comments RBC (test code = RBC) 4.84 4.70-6.10 [facility]IwttoowMNOPRNHNNB5047-30-26 18:46:00 Test Item Value Reference Range Interpretation Comments Hgb (test code = Hgb) 14.4 14.0-18.0 [facility] HospitalHmhbdfxZZMCSLCMVK8622-22-79 18:46:00 Test Item Value Reference Range Interpretation Comments WBC (test code = WBC) 5.2 3.7-10.4 [facility] HospitalHyzbahpUHXHVBCHTP7168-56-25 18:46:00 Test Item Value Reference Range Interpretation Comments MCH (test code = MCH) 29.8 pg 27.0-31.0 [facility] ResourcesZxjkbapNYWVVYRBIA8563-65-97 18:46:00 Test Item Value Reference Range Interpretation Comments MCV (test code = MCV) 92.0 80.0-94.0 [facility]JyrdcnnFRFITTVLIS7259-14-64 18:46:00 Test Item Value Reference Range Interpretation Comments Hct (test code = Hct) 44.5 42.0-54.0 [facility] ResourcesXcjybqpQCFFMIKGQS4507-14-46 18:46:00 Test Item Value Reference Range Interpretation Comments MCHC (test code = MCHC) 32.4 32.0-36.[address] [facility]KcpfrfmRTWNMMHIZA7646-24-70 18:46:00 Test Item Value Reference Range Interpretation Comments [place]-Hep C Ab (test Negative *NA*(07/22/14 code = [place]-Hep C 1:46 PM) Ab) [facility] AND [id number] 18:46:00 Test Item Value Reference Range Interpretation Comments UA Urobilinogen (test code = UA <=1.0 mg/dL 0.1-1.0 Urobilinogen) [facility] AND [id number] 18:46:00 Test Item Value Reference Range Interpretation Comments UA Sq Epi (test code = UA Sq Epi) None Seen [facility] AND [id number] 18:46:00 Test Item Value Reference Range Interpretation Comments UA Leuk Est (test Negative (07/22/14 1:46 code = UA Leuk Est) PM) [facility] AND [id number] 18:46:00 Test Item Value Reference Range Interpretation Comments UA Nitrite (test code Negative (07/22/14 1:46 = UA Nitrite) PM) [facility] AND [id number] 18:46:00 Test Item Value Reference Range Interpretation Comments UA Blood (test code = Negative (07/22/14 1:46 UA Blood) PM) [facility] AND [id number] 18:46:00 Test Item Value Reference Range Interpretation Comments UA Ketones (test code = UA Negative mg/dL Ketones) [facility] AND [id number] 18:46:00 Test Item Value Reference Range Interpretation Comments UA Bili (test code = Negative *NA*(07/22/14 UA Bili) 1:46 PM) [facility] AND [id number] 18:46:00 Test Item Value Reference Range Interpretation Comments UA Bacteria (test code = UA Occasional /HPF Bacteria) [facility] AND [id number] 18:46:00 Test Item Value Reference Range Interpretation Comments UA RBC (test code = no gt See_Comment [Automa elizabeth message] The UA RBC) system which ge nerated this result transmit elizabeth reference range : <=2. The reference range was not used to interpr et this result as lukas l/abnormal. [facility] AND [id number] 18:46:00 Test Item Value Reference Range Interpretation Comments UA WBC (test code = 1 See_Comment [Automa elizabeth message] The UA WBC) system which ge nerated this result transmit elizabeth reference range : <=5. The reference range was not used to interpr et this result as lukas l/abnormal. [facility] AND [id number] 18:46:00 Test Item Value Reference Range Interpretation Comments UA Glucose (test code = UA Glucose) 30 mg/dL [facility] AND [id number] 18:46:00 Test Item Value Reference Range Interpretation Comments UA Protein (test code = UA Negative mg/dL Protein) [facility] AND [id number] 18:46:00 Test Item Value Reference Range Interpretation Comments UA pH (test code = UA pH) 6.5 5.0-8.0 [facility] AND [id number] 18:46:00 Test Item Value Reference Range Interpretation Comments UA Turbidity (test code = Clear (07/22/14 1:46 UA Turbidity) PM) [facility] AND [id number] 18:46:00 Test Item Value Reference Range Interpretation Comments UA Spec Grav (test code = UA Spec Grav) [address] [facility] [id number] 18:46:00 Test Item Value Reference Range Interpretation Comments UA Color (test code = Light Yellow UA Color) *NA*(07/22/14 1:46 PM) [facility]annCHE[facility] [id number] 18:46:00 Test Item Value Reference Range Interpretation Comments Magnesium Lvl (test code = Magnesium 1.8 1.8-2.4 Lvl) [facility] HealthWstotalJAUUTPSTFUPP7648-40-48 18:46:00 Test Item Value Reference Range Interpretation Comments AGAP (test code = AGAP) 13.2 10.0-20.0 [facility] Health[id number] 18:46:00 Test Item Value Reference Range Interpretation Comments B/C Ratio (test code = B/C Ratio) 18 6-25 [facility] HealthDbwgvmvCMVSYZIBEKKI8595-40-75 18:46:00 Test Item Value Reference Range Interpretation Comments A/G Ratio (test code = A/G Ratio) 1.1 0.7-1.6 [facility] HealthMbcpnloQGIBUDTRZXMN7496-02-09 18:46:00 Test Item Value Reference Range Interpretation Comments Globulin (test code = Globulin) 3.3 2.0-4.0 [facility] HealthVintipwEVOZBWWMNHIH1236-87-30 18:46:00 Test Item Value Reference Range Interpretation Comments eGFR (test code = eGFR) 99 [facility] HealthYecpjuvXLNUNVNVIZKQ7724-89-47 18:46:00 Test Item Value Reference Range Interpretation Comments Calcium Lvl (test code = Calcium Lvl) 9.0 8.5-10.5 [facility] HealthRajqhjmDVOPAXJVQBAP3805-11-61 18:46:00 Test Item Value Reference Range Interpretation Comments Chloride Lvl (test code = Chloride Lvl) 106 95-109 [facility] HealthYbvryxnCKTYQQMXCKDZ8132-50-16 18:46:00 Test Item Value Reference Range Interpretation Comments Creatinine Lvl (test code = Creatinine 0.9 0.5-1.4 Lvl) [facility] HealthYpclqyhUTGYVTDQJSMR1460-86-26 18:46:00 Test Item Value Reference Range Interpretation Comments Potassium Lvl (test code = Potassium 4.2 3.5-5.1 Lvl) [facility] HealthAtopsjdWUDPYVGPVCZX7571-94-51 18:46:00 Test Item Value Reference Range Interpretation Comments Sodium Lvl (test code = Sodium Lvl) 139 135-145 [facility] HealthIkdelmuVLGUPVZRTDZL9902-66-13 18:46:00 Test Item Value Reference Range Interpretation Comments CO2 (test code = CO2) 24 24-32 [facility] HealthMyjxmiaOFAXJZIFIMWT3755-97-24 18:46:00 Test Item Value Reference Range Interpretation Comments BUN (test code = BUN) 16 7-22 [facility] HealthAzjozigUZYJVESNPSDM3287-89-11 18:46:00 Test Item Value Reference Range Interpretation Comments Glucose Lvl (test code = Glucose Lvl) 141 70-99 [facility] HealthZexgbivPGGGHHZBGJYT1724-68-44 18:46:00 Test Item Value Reference Range Interpretation Comments Albumin Lvl (test code = Albumin Lvl) 3.6 3.5-5.0 [facility] HealthLrqtqkcTXLKEXWISZOQ9453-57-30 18:46:00 Test Item Value Reference Range Interpretation Comments Alk Phos (test code = Alk Phos) 65 39-136 [facility] HealthMccnldpDBUNHJGDDLAV6430-71-92 18:46:00 Test Item Value Reference Range Interpretation Comments Bili Total (test code = Bili Total) 0.3 0.2-1.3 [facility] HealthUtjhyfzJMQCDYOIILLH5108-65-95 18:46:00 Test Item Value Reference Range Interpretation Comments ALT (test code = ALT) 100 See_Comment [Auto mated message] The system which ge nerated this result transmit elizabeth reference range : <=65. The reference range was not used to interpr et this result as lukas l/abnormal. [facility] HealthZikqmgsISTGSWCNUSDQ4985-78-18 18:46:00 Test Item Value Reference Range Interpretation Comments AST (test code = AST) 53 See_Comment [Auto mated message] The system which ge nerated this result transmit elizabeth reference range : <=37. The reference range was not used to interpr et this result as lukas l/abnormal. [facility] HealthJvuathiSZRMQDTELQDX1503-44-76 18:46:00 Test Item Value Reference Range Interpretation Comments Total Protein (test code = Total 6.9 6.4-8.4 Protein) [facility]GdbekliCLZQEVARHE0333-71-01 18:46:00 Test Item Value Reference Range Interpretation Comments Eosinophils (test code = 4.2 See_Comment [A utomated message] The Eosinophils) system which ge nerated this result tra nsmitted reference range : <=4.0. The reference r mitra was not used to int erpret this result as normal/abnormal . [facility]FnaxwvjRAZZGIXFOS6921-57-35 18:46:00 Test Item Value Reference Range Interpretation Comments Segs (test code = Segs) 56.4 45.0-75.0 [facility] ResourcesLinppgxPRGXTVBWKV9361-33-93 18:46:00 Test Item Value Reference Range Interpretation Comments Monocytes (test code = Monocytes) 10.3 2.0-12.0 [facility] ResourcesQcsajiqNYLPKOLTHJ2790-46-18 18:46:00 Test Item Value Reference Range Interpretation Comments Lymphocytes (test code = Lymphocytes) 28.0 20.0-40.0 [facility] ResourcesDughmvcUMLBJSERLD9492-45-87 18:46:00 Test Item Value Reference Range Interpretation Comments Monocytes # (test code 0.5 See_Comment [Aut omated message] The = Monocytes #) system which generated this result tra nsmitted reference range : <=0.8. The reference r mitra was not used to int erpret this result as normal/abnormal . [facility] ResourcesTmpucmtPUGAYWBLFL4163-21-15 18:46:00 Test Item Value Reference Range Interpretation Comments Basophils (test code = 1.1 See_Comment [Aut omated message] The Basophils) system which ge nerated this result tra nsmitted reference range : <=1.0. The reference r mitra was not used to int erpret this result as normal/abnormal . [facility] ResourcesQpwvlmwIUEAWCVTVI8971-78-69 18:46:00 Test Item Value Reference Range Interpretation Comments Lymphocytes # (test code = Lymphocytes 1.5 1.0-5.5 #) [facility] ResourcesAciykxsNIKWIGYRPL5624-72-46 18:46:00 Test Item Value Reference Range Interpretation Comments Segs-Bands # (test code = Segs-Bands #) 2.9 1.5-8.1 [facility] ResourcesVikeuknPGTLAQYYWA3860-85-09 18:46:00 Test Item Value Reference Range Interpretation Comments Eosinophils # (test code 0.2 See_Comment [A utomated message] The = Eosinophils #) system whic h generated this result tra nsmitted reference range : <=0.5. The reference r mitra was not used to int erpret this result as normal/abnormal . [facility] ResourcesDkvbvelTOUXHYPFFL1845-73-23 18:46:00 Test Item Value Reference Range Interpretation Comments Basophils # (test code 0.1 See_Comment [Aut omated message] The = Basophils #) system which generated this result tra nsmitted reference range : <=0.2. The reference r mitra was not used to int erpret this result as normal/abnormal . [facility] ResourcesLiatnfvODRKFGVBNJ3224-00-25 18:46:00 Test Item Value Reference Range Interpretation Comments PT (test code = PT) 11.2 s 12.0-14.7 [facility]PjpgjqoTUITXNJYCX2534-39-23 18:46:00 Test Item Value Reference Range Interpretation Comments INR (test code = INR) 0.82 0.85-1.17 [facility] ResourcesDhryknuOCSVMESJZI3622-84-96 18:46:00 Test Item Value Reference Range Interpretation Comments PTT (test code = PTT) 28.6 s 22.9-35.8 [facility] ResourcesCafdooqJPODUPIQVQ5212-86-99 18:46:00 Test Item Value Reference Range Interpretation Comments MPV (test code = MPV) 8.1 7.4-10.4 [facility] ResourcesHevaqcxPTMFKYPGDV8440-22-19 18:46:00 Test Item Value Reference Range Interpretation Comments Platelet (test code = Platelet) 301 133-450 [facility] Resourc[id number] 18:46:00 Test Item Value Reference Range Interpretation Comments RDW (test code = RDW) 14.5 11.5-14.5 [facility] ResourcesJpswktuPAWULWEAES0118-38-05 18:46:00 Test Item Value Reference Range Interpretation Comments RBC (test code = RBC) 4.84 4.70-6.10 [facility] ResourcesGroojzzDPIISKWPFR2732-60-85 18:46:00 Test Item Value Reference Range Interpretation Comments Hgb (test code = Hgb) 14.4 14.0-18.0 [facility] ResourcesHanveesRXJVCKVOAW6207-70-66 18:46:00 Test Item Value Reference Range Interpretation Comments WBC (test code = WBC) 5.2 3.7-10.4 [facility] ResourcesUerrhnoFKFTKNLMME3879-52-44 18:46:00 Test Item Value Reference Range Interpretation Comments MCH (test code = MCH) 29.8 pg 27.0-31.0 [facility] ResourcesAfwnuggZSMIDHHPJR7167-79-55 18:46:00 Test Item Value Reference Range Interpretation Comments MCV (test code = MCV) 92.0 80.0-94.[address] [facility]DgpeknxJVKNNRCGCA1489-88-26 18:46:00 Test Item Value Reference Range Interpretation Comments Hct (test code = Hct) 44.5 42.0-54.[address] [facility]TzzxozgRSNPAMSBMK1737-92-45 18:46:00 Test Item Value Reference Range Interpretation Comments MCHC (test code = MCHC) 32.4 32.0-36.[address] [facility]YjzrpjlFWQKNMJBYZ7508-34-14 18:46:00 Test Item Value Reference Range Interpretation Comments [place]-Hep C Ab (test Negative *NA*(07/22/14 code = [place]-Hep C 1:46 PM) Ab) [facility] AND [id number] 18:46:00 Test Item Value Reference Range Interpretation Comments UA Urobilinogen (test code = UA <=1.0 mg/dL 0.1-1.0 Urobilinogen) [facility] AND [id number] 18:46:00 Test Item Value Reference Range Interpretation Comments UA Sq Epi (test code = UA Sq Epi) None Seen [facility] AND [id number] 18:46:00 Test Item Value Reference Range Interpretation Comments UA Leuk Est (test Negative (07/22/14 1:46 code = UA Leuk Est) PM) [facility] AND [id number] 18:46:00 Test Item Value Reference Range Interpretation Comments UA Nitrite (test code Negative (07/22/14 1:46 = UA Nitrite) PM) [facility] AND [id number] 18:46:00 Test Item Value Reference Range Interpretation Comments UA Blood (test code = Negative (07/22/14 1:46 UA Blood) PM) [facility] AND [id number] 18:46:00 Test Item Value Reference Range Interpretation Comments UA Ketones (test code = UA Negative mg/dL Ketones) [facility] AND [id number] 18:46:00 Test Item Value Reference Range Interpretation Comments UA Bili (test code = Negative *NA*(07/22/14 UA Bili) 1:46 PM) [facility] AND [id number] 18:46:00 Test Item Value Reference Range Interpretation Comments UA Bacteria (test code = UA Occasional /HPF Bacteria) [facility] AND [id number] 18:46:00 Test Item Value Reference Range Interpretation Comments UA RBC (test code = no gt See_Comment [Automa elizabeth message] The UA RBC) system which ge nerated this result transmit elizabeth reference range : <=2. The reference range was not used to interpr et this result as lukas l/abnormal. [facility] [id number] 18:46:00 Test Item Value Reference Range Interpretation Comments UA WBC (test code = 1 See_Comment [Automa elizabeth message] The UA WBC) system which ge nerated this result transmit elizabeth reference range : <=5. The reference range was not used to interpr et this result as lukas l/abnormal. [facility] [id number] 18:46:00 Test Item Value Reference Range Interpretation Comments UA Glucose (test code = UA Glucose) 30 mg/dL [facility] AND [id number] 18:46:00 Test Item Value Reference Range Interpretation Comments UA Protein (test code = UA Negative mg/dL Protein) [facility] [id number] 18:46:00 Test Item Value Reference Range Interpretation Comments UA pH (test code = UA pH) 6.5 5.0-8.0 [facility] [id number] 18:46:00 Test Item Value Reference Range Interpretation Comments UA Turbidity (test code = Clear (07/22/14 1:46 UA Turbidity) PM) [facility] AND [id number] 18:46:00 Test Item Value Reference Range Interpretation Comments UA Spec Grav (test code = UA Spec Grav) 1.010 [facility] AND [id number] 18:46:00 Test Item Value Reference Range Interpretation Comments UA Color (test code = Light Yellow UA Color) *NA*(07/22/14 1:46 PM) [facility] [id number] 18:46:00 Test Item Value Reference Range Interpretation Comments Magnesium Lvl (test code = Magnesium 1.8 1.8-2.4 Lvl) [facility] [id number] 18:46:00 Test Item Value Reference Range Interpretation Comments AGAP (test code = AGAP) 13.2 10.0-20.0 [facility][id number] 18:46:00 Test Item Value Reference Range Interpretation Comments B/C Ratio (test code = B/C Ratio) 18 6-25 [facility] HealthZhtsltyXTRMYSHWDYNG1973-13-09 18:46:00 Test Item Value Reference Range Interpretation Comments A/G Ratio (test code = A/G Ratio) 1.1 0.7-1.6 [facility] HealthSgytoppUCELYOAZGATJ0908-44-33 18:46:00 Test Item Value Reference Range Interpretation Comments Globulin (test code = Globulin) 3.3 2.0-4.0 [facility] HealthSryygydDBLCWWPTALLO9303-98-70 18:46:00 Test Item Value Reference Range Interpretation Comments eGFR (test code = eGFR) 99 [facility] HealthQyawrinRVXEDOCUUUPJ4676-23-32 18:46:00 Test Item Value Reference Range Interpretation Comments Calcium Lvl (test code = Calcium Lvl) 9.0 8.5-10.5 [facility] HealthNjunqrrXASNRYLMDPHV3566-18-47 18:46:00 Test Item Value Reference Range Interpretation Comments Chloride Lvl (test code = Chloride Lvl) 106 95-109 [facility] HealthCtqowvaZCZRNQDNAERQ0907-97-55 18:46:00 Test Item Value Reference Range Interpretation Comments Creatinine Lvl (test code = Creatinine 0.9 0.5-1.4 Lvl) [facility] HealthXahmiwpMFKJZXSLSNZP7794-83-58 18:46:00 Test Item Value Reference Range Interpretation Comments Potassium Lvl (test code = Potassium 4.2 3.5-5.1 Lvl) [facility] HealthXzkorpcGMMWVGRHNOYK8900-31-03 18:46:00 Test Item Value Reference Range Interpretation Comments Sodium Lvl (test code = Sodium Lvl) 139 135-145 [facility] HealthAhgvnizTUWECYYWPSGO4554-04-94 18:46:00 Test Item Value Reference Range Interpretation Comments CO2 (test code = CO2) 24 24-32 [facility] HealthFevcbxjLWOLVHMARPGH6485-58-18 18:46:00 Test Item Value Reference Range Interpretation Comments BUN (test code = BUN) 16 7-22 [facility] HealthSuvntyhWWPVGBEOMKSY0368-80-41 18:46:00 Test Item Value Reference Range Interpretation Comments Glucose Lvl (test code = Glucose Lvl) 141 70-99 [facility] HealthUtpctwoZYIXSJFRTLPG1008-51-32 18:46:00 Test Item Value Reference Range Interpretation Comments Albumin Lvl (test code = Albumin Lvl) 3.6 3.5-5.0 [facility] HealthWzxbhkjRLZLAEREVYCJ7931-69-67 18:46:00 Test Item Value Reference Range Interpretation Comments Alk Phos (test code = Alk Phos) 65 39-136 [facility] HealthGkfruujRTYSTLWYNQRR7420-52-87 18:46:00 Test Item Value Reference Range Interpretation Comments Bili Total (test code = Bili Total) 0.3 0.2-1.3 [facility] HealthCtjruqdLDXTWABZXJCH4484-53-41 18:46:00 Test Item Value Reference Range Interpretation Comments ALT (test code = ALT) 100 See_Comment [Auto mated message] The system which ge nerated this result transmit elizabeth reference range : <=65. The reference range was not used to interpr et this result as lukas l/abnormal. [facility] HealthAibawddLESSYYOLOZHN2803-88-40 18:46:00 Test Item Value Reference Range Interpretation Comments AST (test code = AST) 53 See_Comment [Auto mated message] The system which ge nerated this result transmit elizabeth reference range : <=37. The reference range was not used to interpr et this result as lukas l/abnormal. [facility] HealthZjrjuvpQAEYKFEMWPAM3159-20-51 18:46:00 Test Item Value Reference Range Interpretation Comments Total Protein (test code = Total 6.9 6.4-8.4 Protein) [facility] ResourcesWazdbbsHMDPTYRRXG7847-68-60 18:46:00 Test Item Value Reference Range Interpretation Comments Eosinophils (test code = 4.2 See_Comment [A utomated message] The Eosinophils) system which ge nerated this result tra nsmitted reference range : <=4.0. The reference r mitra was not used to int erpret this result as normal/abnormal . [facility] ResourcesPodroqmVFGANTZHSW1627-01-53 18:46:00 Test Item Value Reference Range Interpretation Comments Segs (test code = Segs) 56.4 45.0-75.0 [facility] ResourcesCgtxjllRJVKZMPCZI9210-70-35 18:46:00 Test Item Value Reference Range Interpretation Comments Monocytes (test code = Monocytes) 10.3 2.0-12.0 [facility] ResourcesYnzqrecYYJDSAOGMO9097-18-29 18:46:00 Test Item Value Reference Range Interpretation Comments Lymphocytes (test code = Lymphocytes) 28.0 20.0-40.0 [facility] ResourcesEciukflOVVQSVZSHP2544-87-26 18:46:00 Test Item Value Reference Range Interpretation Comments Monocytes # (test code 0.5 See_Comment [Aut omated message] The = Monocytes #) system which generated this result tra nsmitted reference range : <=0.8. The reference r mitra was not used to int erpret this result as normal/abnormal . [facility] ResourcesRxfkpudAUAQQXRGDC6997-42-38 18:46:00 Test Item Value Reference Range Interpretation Comments Basophils (test code = 1.1 See_Comment [Aut omated message] The Basophils) system which ge nerated this result tra nsmitted reference range : <=1.0. The reference r mitra was not used to int erpret this result as normal/abnormal . [facility] ResourcesNbnftwqUGGXKFTKGR4685-72-26 18:46:00 Test Item Value Reference Range Interpretation Comments Lymphocytes # (test code = Lymphocytes 1.5 1.0-5.5 #) [facility] ResourcesCsojhfrQCMGUBJNGQ1406-48-55 18:46:00 Test Item Value Reference Range Interpretation Comments Segs-Bands # (test code = Segs-Bands #) 2.9 1.5-8.1 [facility] ResourcesLtlsklaADKOLDFDHG6447-55-49 18:46:00 Test Item Value Reference Range Interpretation Comments Eosinophils # (test code 0.2 See_Comment [A utomated message] The = Eosinophils #) system whic h generated this result tra nsmitted reference range : <=0.5. The reference r mitra was not used to int erpret this result as normal/abnormal . [facility] ResourcesVnjgcanTIIGNKAYFE2968-01-54 18:46:00 Test Item Value Reference Range Interpretation Comments Basophils # (test code 0.1 See_Comment [Aut omated message] The = Basophils #) system which generated this result tra nsmitted reference range : <=0.2. The reference r mitra was not used to int erpret this result as normal/abnormal . [facility] ResourcesOcxejdyGFYNLDBNNC8528-17-90 18:46:00 Test Item Value Reference Range Interpretation Comments PT (test code = PT) 11.2 s 12.0-14.7 [facility] ResourcesKqbmsbnMBUWBVMVBH8266-47-33 18:46:00 Test Item Value Reference Range Interpretation Comments INR (test code = INR) 0.82 0.85-1.17 [facility] ResourcesVcfjvghSGPHEGZYXA1252-11-21 18:46:00 Test Item Value Reference Range Interpretation Comments PTT (test code = PTT) 28.6 s 22.9-35.8 [facility] ResourcesWbsktzoEXGOJMBWUT3570-21-51 18:46:00 Test Item Value Reference Range Interpretation Comments MPV (test code = MPV) 8.1 7.4-10.4 [facility] ResourcesXanvlumSTVHDIGWUA4315-20-73 18:46:00 Test Item Value Reference Range Interpretation Comments Platelet (test code = Platelet) 301 133-450 [facility] ResourcesDhcjmugNZXEUPGLRU6689-01-14 18:46:00 Test Item Value Reference Range Interpretation Comments RDW (test code = RDW) 14.5 11.5-14.5 [facility] ResourcesHlifyepBJCYNEICUY5468-48-24 18:46:00 Test Item Value Reference Range Interpretation Comments RBC (test code = RBC) 4.84 4.70-6.10 [facility] ResourcesTdbgadpRFZMZTFPES5970-37-47 18:46:00 Test Item Value Reference Range Interpretation Comments Hgb (test code = Hgb) 14.4 14.0-18.0 [facility] ResourcesWbqplfgJOZNDZKGWZ0206-93-38 18:46:00 Test Item Value Reference Range Interpretation Comments WBC (test code = WBC) 5.2 3.7-10.4 [facility] ResourcesUzelofeCYJZRYWFTC4672-71-25 18:46:00 Test Item Value Reference Range Interpretation Comments MCH (test code = MCH) 29.8 pg 27.0-31.0 [facility] ResourcesEaviholRBJXWQSHSO4163-18-73 18:46:00 Test Item Value Reference Range Interpretation Comments MCV (test code = MCV) 92.0 80.0-94.0 [facility] ResourcesFamajxeNPXSIGMSWY5583-82-32 18:46:00 Test Item Value Reference Range Interpretation Comments Hct (test code = Hct) 44.5 42.0-54.0 [facility] ResourcesVrtprolZSXXAZXWBM1836-88-19 18:46:00 Test Item Value Reference Range Interpretation Comments MCHC (test code = MCHC) 32.4 32.0-36.[address] [facility]YEHQRWIFV6915-21-68 18:46:00 Test Item Value Reference Range Interpretation Comments [place]-Hep C Ab (test Negative *NA*(07/22/14 code = [place]-Hep C 1:46 PM) Ab) [facility] AND [id number] 18:46:00 Test Item Value Reference Range Interpretation Comments UA Urobilinogen (test code = UA <=1.0 mg/dL 0.1-1.0 Urobilinogen) [facility] AND [id number] 18:46:00 Test Item Value Reference Range Interpretation Comments UA Sq Epi (test code = UA Sq Epi) None Seen [facility] AND [id number] 18:46:00 Test Item Value Reference Range Interpretation Comments UA Leuk Est (test Negative (07/22/14 1:46 code = UA Leuk Est) PM) [facility] AND [id number] 18:46:00 Test Item Value Reference Range Interpretation Comments UA Nitrite (test code Negative (07/22/14 1:46 = UA Nitrite) PM) [facility] AND [id number] 18:46:00 Test Item Value Reference Range Interpretation Comments UA Blood (test code = Negative (07/22/14 1:46 UA Blood) PM) [facility] AND [id number] 18:46:00 Test Item Value Reference Range Interpretation Comments UA Ketones (test code = UA Negative mg/dL Ketones) [facility] AND [id number] 18:46:00 Test Item Value Reference Range Interpretation Comments UA Bili (test code = Negative *NA*(07/22/14 UA Bili) 1:46 PM) [facility] AND [id number] 18:46:00 Test Item Value Reference Range Interpretation Comments UA Bacteria (test code = UA Occasional /HPF Bacteria) [facility] AND [id number] 18:46:00 Test Item Value Reference Range Interpretation Comments UA RBC (test code = no gt See_Comment [Automa elizabeth message] The UA RBC) system which ge nerated this result transmit elizabeth reference range : <=2. The reference range was not used to interpr et this result as lukas l/abnormal. [facility] AND [id number] 18:46:00 Test Item Value Reference Range Interpretation Comments UA WBC (test code = 1 See_Comment [Automa elizabeth message] The UA WBC) system which ge nerated this result transmit elizabeth reference range : <=5. The reference range was not used to interpr et this result as lukas l/abnormal. [facility] AND [id number] 18:46:00 Test Item Value Reference Range Interpretation Comments UA Glucose (test code = UA Glucose) 30 mg/dL [facility] AND [id number] 18:46:00 Test Item Value Reference Range Interpretation Comments UA Protein (test code = UA Negative mg/dL Protein) [facility] AND [id number] 18:46:00 Test Item Value Reference Range Interpretation Comments UA pH (test code = UA pH) 6.5 5.0-8.0 [facility] AND [id number] 18:46:00 Test Item Value Reference Range Interpretation Comments UA Turbidity (test code = Clear (07/22/14 1:46 UA Turbidity) PM) [facility] AND [id number] 18:46:00 Test Item Value Reference Range Interpretation Comments UA Spec Grav (test code = UA Spec Grav) 1.010 [facility] AND [id number] 18:46:00 Test Item Value Reference Range Interpretation Comments UA Color (test code = Light Yellow UA Color) *NA*(07/22/14 1:46 PM) [facility] [id number] 18:46:00 Test Item Value Reference Range Interpretation Comments Magnesium Lvl (test code = Magnesium 1.8 1.8-2.4 Lvl) [facility] HealthKeerqlqGZNNEGVJEZOC0111-22-28 18:46:00 Test Item Value Reference Range Interpretation Comments AGAP (test code = AGAP) 13.2 10.0-20.[address] [facility] CenterGhulbmuNMJLLUILBXJI8845-77-20 18:46:00 Test Item Value Reference Range Interpretation Comments B/C Ratio (test code = B/C Ratio) 18 6-25 [facility] HealthRvtkiaiZFRRXRCGRZVA5813-74-46 18:46:00 Test Item Value Reference Range Interpretation Comments A/G Ratio (test code = A/G Ratio) 1.1 0.7-1.6 [facility] HealthSwgfrosPZSIXWPURIBK2320-24-22 18:46:00 Test Item Value Reference Range Interpretation Comments Globulin (test code = Globulin) 3.3 2.0-4.0 [facility] HealthRmgywpgVECJMDHQRZMD0489-93-09 18:46:00 Test Item Value Reference Range Interpretation Comments eGFR (test code = eGFR) 99 [facility] HealthVmkgzyeTBRKSKWDTDFY7148-16-12 18:46:00 Test Item Value Reference Range Interpretation Comments Calcium Lvl (test code = Calcium Lvl) 9.0 8.5-10.5 [facility] HealthVjwzkiqPNBOHIPIVKIV7991-54-57 18:46:00 Test Item Value Reference Range Interpretation Comments Chloride Lvl (test code = Chloride Lvl) 106 95-109 [facility] HealthCklmdzhFJVOHMAIAFFU3463-09-15 18:46:00 Test Item Value Reference Range Interpretation Comments Creatinine Lvl (test code = Creatinine 0.9 0.5-1.4 Lvl) [facility] HealthFqjeheoXUANWVLYARYR6711-48-19 18:46:00 Test Item Value Reference Range Interpretation Comments Potassium Lvl (test code = Potassium 4.2 3.5-5.1 Lvl) [facility] HealthEtdpkziCPZVAGUJAOED5823-82-92 18:46:00 Test Item Value Reference Range Interpretation Comments Sodium Lvl (test code = Sodium Lvl) 139 135-145 [facility] HealthNnjuoikCMPDPGGLWVQC3952-48-10 18:46:00 Test Item Value Reference Range Interpretation Comments CO2 (test code = CO2) 24 24-32 [facility] HealthSflhtijXQXQZWORTQKJ7468-79-93 18:46:00 Test Item Value Reference Range Interpretation Comments BUN (test code = BUN) 16 7-22 [facility] HealthEmyxzyiBWMMPDQFQAJW1938-16-17 18:46:00 Test Item Value Reference Range Interpretation Comments Glucose Lvl (test code = Glucose Lvl) 141 70-99 [facility] HealthIeqahviCSCOXFAPLJDD7046-26-57 18:46:00 Test Item Value Reference Range Interpretation Comments Albumin Lvl (test code = Albumin Lvl) 3.6 3.5-5.0 [facility] HealthOsmmfnnOWTAKMPNBZOX9652-14-77 18:46:00 Test Item Value Reference Range Interpretation Comments Alk Phos (test code = Alk Phos) 65 39-136 [facility] HealthClfuzbpECACAPUQQWYG5752-77-73 18:46:00 Test Item Value Reference Range Interpretation Comments Bili Total (test code = Bili Total) 0.3 0.2-1.3 [facility] HealthPuyqgdcZSRALVEYUJXZ9552-24-63 18:46:00 Test Item Value Reference Range Interpretation Comments ALT (test code = ALT) 100 See_Comment [Auto mated message] The system which ge nerated this result transmit elizabeth reference range : <=65. The reference range was not used to interpr et this result as lukas l/abnormal. [facility] HealthNgzkyfoQNDGIOSWKTJS8894-17-74 18:46:00 Test Item Value Reference Range Interpretation Comments AST (test code = AST) 53 See_Comment [Auto mated message] The system which ge nerated this result transmit elizabeth reference range : <=37. The reference range was not used to interpr et this result as lukas l/abnormal. [facility] HealthMjnbtoaGRWVZMWIPHSG9217-80-69 18:46:00 Test Item Value Reference Range Interpretation Comments Total Protein (test code = Total 6.9 6.4-8.4 Protein) [facility]RonxuowPBQLJUBICQ4819-40-82 18:46:00 Test Item Value Reference Range Interpretation Comments Eosinophils (test code = 4.2 See_Comment [A utomated message] The Eosinophils) system which ge nerated this result tra nsmitted reference range : <=4.0. The reference r mitra was not used to int erpret this result as normal/abnormal . [facility] Resourc[id number] 18:46:00 Test Item Value Reference Range Interpretation Comments Segs (test code = Segs) 56.4 45.0-75.0 [facility] ResourcesZqcitdzRZVJBJMZYS0729-77-42 18:46:00 Test Item Value Reference Range Interpretation Comments Monocytes (test code = Monocytes) 10.3 2.0-12.0 [facility] ResourcesRpjlvwnISJHZCQXWG5703-79-27 18:46:00 Test Item Value Reference Range Interpretation Comments Lymphocytes (test code = Lymphocytes) 28.0 20.0-40.0 [facility] ResourcesVorngulBRVCFNVDAZ9798-31-45 18:46:00 Test Item Value Reference Range Interpretation Comments Monocytes # (test code 0.5 See_Comment [Aut omated message] The = Monocytes #) system which generated this result tra nsmitted reference range : <=0.8. The reference r mitra was not used to int erpret this result as normal/abnormal . [facility] ResourcesUouqsknJDVVESQPVO6081-82-94 18:46:00 Test Item Value Reference Range Interpretation Comments Basophils (test code = 1.1 See_Comment [Aut omated message] The Basophils) system which ge nerated this result tra nsmitted reference range : <=1.0. The reference r mitra was not used to int erpret this result as normal/abnormal . [facility]MuedwvlVWKBRDCEGE1223-56-03 18:46:00 Test Item Value Reference Range Interpretation Comments Lymphocytes # (test code = Lymphocytes 1.5 1.0-5.5 #) [facility] ResourcesQahnrbxOYIROIDIES5601-47-44 18:46:00 Test Item Value Reference Range Interpretation Comments Segs-Bands # (test code = Segs-Bands #) 2.9 1.5-8.1 [facility] ResourcesPrecqkaIJCQZNIGJZ9669-31-59 18:46:00 Test Item Value Reference Range Interpretation Comments Eosinophils # (test code 0.2 See_Comment [A utomated message] The = Eosinophils #) system whic h generated this result tra nsmitted reference range : <=0.5. The reference r mitra was not used to int erpret this result as normal/abnormal . [facility] ResourcesFivtezwWQOUJBZROP8683-37-91 18:46:00 Test Item Value Reference Range Interpretation Comments Basophils # (test code 0.1 See_Comment [Aut omated message] The = Basophils #) system which generated this result tra nsmitted reference range : <=0.2. The reference r mitra was not used to int erpret this result as normal/abnormal . [facility] ResourcesZvcvsrwXSEUTTZYBL4570-22-97 18:46:00 Test Item Value Reference Range Interpretation Comments PT (test code = PT) 11.2 s 12.0-14.7 [facility] ResourcesYrfpnvuRCLKFWRPSZ0805-23-90 18:46:00 Test Item Value Reference Range Interpretation Comments INR (test code = INR) 0.82 0.85-1.17 [facility] ResourcesUivvrqnCRFPNHCDAW6805-47-06 18:46:00 Test Item Value Reference Range Interpretation Comments PTT (test code = PTT) 28.6 s 22.9-35.8 [facility] ResourcesKypkamzSXVHWIPKVV3825-34-60 18:46:00 Test Item Value Reference Range Interpretation Comments MPV (test code = MPV) 8.1 7.4-10.4 [facility] ResourcesRhzsetlOPVFYAEXSH0688-36-83 18:46:00 Test Item Value Reference Range Interpretation Comments Platelet (test code = Platelet) 301 133-450 [facility] ResourcesLfganpyRQBIGSQDJO6651-50-95 18:46:00 Test Item Value Reference Range Interpretation Comments RDW (test code = RDW) 14.5 11.5-14.[address] [facility]xtilOEIGDVDQNP2199-44-95 18:46:00 Test Item Value Reference Range Interpretation Comments RBC (test code = RBC) 4.84 4.70-6.10 [facility]JewzlihDBXOFGTGEN1843-18-89 18:46:00 Test Item Value Reference Range Interpretation Comments Hgb (test code = Hgb) 14.4 14.0-18.[address] [facility]GzgmoueNDFMTNUMRF7745-29-22 18:46:00 Test Item Value Reference Range Interpretation Comments WBC (test code = WBC) 5.2 3.7-10.4 [facility] HospitalMrontkfFUPWVVPRMR3584-04-96 18:46:00 Test Item Value Reference Range Interpretation Comments MCH (test code = MCH) 29.8 pg 27.0-31.0 [facility] HospitalPckxdbuMVDVPPJKGL2121-52-05 18:46:00 Test Item Value Reference Range Interpretation Comments MCV (test code = MCV) 92.0 80.0-94.[address] [facility]BiaacnlRCBJUVMVXS4524-54-96 18:46:00 Test Item Value Reference Range Interpretation Comments Hct (test code = Hct) 44.5 42.0-54.0 [facility] HospitalOainihcVAEVJNRFDX5263-59-34 18:46:00 Test Item Value Reference Range Interpretation Comments MCHC (test code = MCHC) 32.4 32.0-36.[address] [facility]QvygvxsNMYDZEMINY7667-50-62 18:46:00 Test Item Value Reference Range Interpretation Comments [place]-Hep C Ab (test Negative *NA*(07/22/14 code = [place]-Hep C 1:46 PM) Ab) [facility] AND [id number] 18:46:00 Test Item Value Reference Range Interpretation Comments UA Urobilinogen (test code = UA <=1.0 mg/dL 0.1-1.0 Urobilinogen) [facility] [id number] 18:46:00 Test Item Value Reference Range Interpretation Comments UA Sq Epi (test code = UA Sq Epi) None [facility] [id number] 18:46:00 Test Item Value Reference Range Interpretation Comments UA Leuk Est (test Negative (07/22/14 1:46 code = UA Leuk Est) PM) [facility] AND [id number] 18:46:00 Test Item Value Reference Range Interpretation Comments UA Nitrite (test code Negative (07/22/14 1:46 = UA Nitrite) PM) [facility] AND [id number] 18:46:00 Test Item Value Reference Range Interpretation Comments UA Blood (test code = Negative (07/22/14 1:46 UA Blood) PM) [facility] AND [id number] 18:46:00 Test Item Value Reference Range Interpretation Comments UA Ketones (test code = UA Negative mg/dL Ketones) [facility] AND [id number] 18:46:00 Test Item Value Reference Range Interpretation Comments UA Bili (test code = Negative *NA*(07/22/14 UA Bili) 1:46 PM) [facility] AND [id number] 18:46:00 Test Item Value Reference Range Interpretation Comments UA Bacteria (test code = UA Occasional /HPF Bacteria) [facility] AND [id number] 18:46:00 Test Item Value Reference Range Interpretation Comments UA RBC (test code = no gt See_Comment [Automa elizabeth message] The UA RBC) system which ge nerated this result transmit elizabeth reference range : <=2. The reference range was not used to interpr et this result as lukas l/abnormal. [facility] AND [id number] 18:46:00 Test Item Value Reference Range Interpretation Comments UA WBC (test code = 1 See_Comment [Automa elizabeth message] The UA WBC) system which ge nerated this result transmit elizabeth reference range : <=5. The reference range was not used to interpr et this result as lukas l/abnormal. [facility] AND [id number] 18:46:00 Test Item Value Reference Range Interpretation Comments UA Glucose (test code = UA Glucose) 30 mg/dL [facility] AND [id number] 18:46:00 Test Item Value Reference Range Interpretation Comments UA Protein (test code = UA Negative mg/dL Protein) [facility] AND [id number] 18:46:00 Test Item Value Reference Range Interpretation Comments UA pH (test code = UA pH) 6.5 5.0-8.0 [facility] [id number] 18:46:00 Test Item Value Reference Range Interpretation Comments UA Turbidity (test code = Clear (07/22/14 1:46 UA Turbidity) PM) [facility] [id number] 18:46:00 Test Item Value Reference Range Interpretation Comments UA Spec Grav (test code = UA Spec Grav) 1.010 [facility] AND [id number] 18:46:00 Test Item Value Reference Range Interpretation Comments UA Color (test code = Light Yellow UA Color) *NA*(07/22/14 1:46 PM) [id number] 18:46:[facility] Test Item Value Reference Range Interpretation Comments Magnesium Lvl (test code = Magnesium 1.8 1.8-2.4 Lvl) [id number] 18:46:00 Test Item Value Reference Range Interpretation Comments AGAP (test code = AGAP) 13.2 10.0-20.[address] [facility] [id number] 18:46:00 Test Item Value Reference Range Interpretation Comments Magnesium Lvl (test code = Magnesium 1.8 1.8-2.4 Lvl) [facility] H[id number] 18:46:00 Test Item Value Reference Range Interpretation Comments AGAP (test code = AGAP) 13.2 10.0-20.0 [facility] Health[id number] 18:46:00 Test Item Value Reference Range Interpretation Comments B/C Ratio (test code = B/C Ratio) 18 6-25 [facility] HealthNkelctwQZFMPJDXWEHS0398-27-20 18:46:00 Test Item Value Reference Range Interpretation Comments A/G Ratio (test code = A/G Ratio) 1.1 0.7-1.6 [facility] Health[id number] 18:46:00 Test Item Value Reference Range Interpretation Comments Globulin (test code = Globulin) 3.3 2.0-4.0 [facility] HealthWwyawevBWJBHMGSAKLT5437-08-14 18:46:00 Test Item Value Reference Range Interpretation Comments eGFR (test code = eGFR) 99 [facility] HealthVujqsmhSFELEXKPTFIN6695-80-04 18:46:00 Test Item Value Reference Range Interpretation Comments Calcium Lvl (test code = Calcium Lvl) 9.0 8.5-10.5 [facility] HealthTcgxcosHVGTTBBMFCOL5908-45-05 18:46:00 Test Item Value Reference Range Interpretation Comments Chloride Lvl (test code = Chloride Lvl) 106 95-109 [facility] HealthDzihqloCQSLQMUWYYGW3058-57-09 18:46:00 Test Item Value Reference Range Interpretation Comments Creatinine Lvl (test code = Creatinine 0.9 0.5-1.4 Lvl) [facility] HealthRmippkjSOWHSDRNIGWM0981-01-04 18:46:00 Test Item Value Reference Range Interpretation Comments Potassium Lvl (test code = Potassium 4.2 3.5-5.1 Lvl) [facility] HealthOxgsxzuPVMBGMIVOKBR5077-31-46 18:46:00 Test Item Value Reference Range Interpretation Comments Sodium Lvl (test code = Sodium Lvl) 139 135-145 [facility] HealthIajeyavUVMYZEXISXFB5966-81-13 18:46:00 Test Item Value Reference Range Interpretation Comments CO2 (test code = CO2) 24 24-32 [facility] HealthAtnboxpAHRVQOFHDYDU1595-41-83 18:46:00 Test Item Value Reference Range Interpretation Comments BUN (test code = BUN) 16 7-22 [facility] HealthVidsvfwTFCRIYEYNJLM2598-72-12 18:46:00 Test Item Value Reference Range Interpretation Comments Glucose Lvl (test code = Glucose Lvl) 141 70-99 [facility] HealthJvhgttiOOCCBUMJXGHU2501-93-27 18:46:00 Test Item Value Reference Range Interpretation Comments Albumin Lvl (test code = Albumin Lvl) 3.6 3.5-5.0 [facility] HealthZelhiykQJUEFEQZSVWZ6690-04-31 18:46:00 Test Item Value Reference Range Interpretation Comments Alk Phos (test code = Alk Phos) 65 39-136 [facility] Health[id number] 18:46:00 Test Item Value Reference Range Interpretation Comments Bili Total (test code = Bili Total) 0.3 0.2-1.3 [facility] HealthFlliwvvTHEMJCOBYXHD2125-73-55 18:46:00 Test Item Value Reference Range Interpretation Comments ALT (test code = ALT) 100 See_Comment [Auto mated message] The system which ge nerated this result transmit elizabeth reference range : <=65. The reference range was not used to interpr et this result as lukas l/abnormal. [facility] HealthMulgdhoCCUATWXHMQPA3950-28-36 18:46:00 Test Item Value Reference Range Interpretation Comments AST (test code = AST) 53 See_Comment [Auto mated message] The system which ge nerated this result transmit elizabeth reference range : <=37. The reference range was not used to interpr et this result as lukas l/abnormal. [facility] HealthAlcutedQPHIMXYOCBFD6861-92-69 18:46:00 Test Item Value Reference Range Interpretation Comments Total Protein (test code = Total 6.9 6.4-8.4 Protein) [id number] 18:46:00 Test Item Value Reference Range Interpretation Comments Eosinophils (test code = 4.2 See_Comment [A utomated message] The Eosinophils) system which ge nerated this result tra nsmitted reference range : <=4.0. The reference r mitra was not used to int erpret this result as normal/abnormal . [facility] Re[id number] 18:46:00 Test Item Value Reference Range Interpretation Comments Segs (test code = Segs) 56.4 45.0-75.0 [facility] Resourc[id number] 18:46:00 Test Item Value Reference Range Interpretation Comments Monocytes (test code = Monocytes) 10.3 2.0-12.0 [facility] Resourc[id number] 18:46:00 Test Item Value Reference Range Interpretation Comments Lymphocytes (test code = Lymphocytes) 28.0 20.0-40.0 [facility] Resourc[id number] 18:46:00 Test Item Value Reference Range Interpretation Comments Monocytes # (test code 0.5 See_Comment [Aut omated message] The = Monocytes #) system which generated this result tra nsmitted reference range : <=0.8. The reference r mitra was not used to int erpret this result as normal/abnormal . [facility] Re[id number] 18:46:00 Test Item Value Reference Range Interpretation Comments Basophils (test code = 1.1 See_Comment [Aut omated message] The Basophils) system which ge nerated this result tra nsmitted reference range : <=1.0. The reference r mitra was not used to int erpret this result as normal/abnormal . [facility] Reso[id number] 18:46:00 Test Item Value Reference Range Interpretation Comments Lymphocytes # (test code = Lymphocytes 1.5 1.0-5.5 #) [facility] ResourcesEevfepeMGGNOCLXAV0586-19-41 18:46:00 Test Item Value Reference Range Interpretation Comments Segs-Bands # (test code = Segs-Bands #) 2.9 1.5-8.1 [facility] ResourcesZhlfaysOKKZALZUOP4582-52-27 18:46:00 Test Item Value Reference Range Interpretation Comments Eosinophils # (test code 0.2 See_Comment [A utomated message] The = Eosinophils #) system whic h generated this result tra nsmitted reference range : <=0.5. The reference r mitra was not used to int erpret this result as normal/abnormal . [facility] Resourc[id number] 18:46:00 Test Item Value Reference Range Interpretation Comments Basophils # (test code 0.1 See_Comment [Aut omated message] The = Basophils #) system which generated this result tra nsmitted reference range : <=0.2. The reference r mitra was not used to int erpret this result as normal/abnormal . [facility] ResourcesUasqrcgKTRASCJQFA2535-41-37 18:46:00 Test Item Value Reference Range Interpretation Comments PT (test code = PT) 11.2 s 12.0-14.7 [facility] Reso[id number] 18:46:00 Test Item Value Reference Range Interpretation Comments INR (test code = INR) 0.82 0.85-1.17 [facility] ResourcesCupinjaNUADPBQVQB8883-26-31 18:46:00 Test Item Value Reference Range Interpretation Comments PTT (test code = PTT) 28.6 s 22.9-35.8 [facility] ResourcesEiyxuqvLOXGLHZTZO9115-07-32 18:46:00 Test Item Value Reference Range Interpretation Comments MPV (test code = MPV) 8.1 7.4-10.4 [facility] ResourcesJysduhpFVDEVXKFLY1086-68-07 18:46:00 Test Item Value Reference Range Interpretation Comments Platelet (test code = Platelet) 301 133-450 [facility] ResourcesEuagbjpHTHKAACHOG6379-87-56 18:46:00 Test Item Value Reference Range Interpretation Comments RDW (test code = RDW) 14.5 11.5-14.5 [facility] ResourcesCmjbdvfCSQBNNBDST0914-38-89 18:46:00 Test Item Value Reference Range Interpretation Comments RBC (test code = RBC) 4.84 4.70-6.10 [facility]GxbrykwXDCFNSFSVU9281-32-06 18:46:00 Test Item Value Reference Range Interpretation Comments Hgb (test code = Hgb) 14.4 14.0-18.0 [facility] HospitalEoaowiiFPHVAXRGDR8196-89-96 18:46:00 Test Item Value Reference Range Interpretation Comments WBC (test code = WBC) 5.2 3.7-10.4 [facility] Resourc[id number] 18:46:00 Test Item Value Reference Range Interpretation Comments MCH (test code = MCH) 29.8 pg 27.0-31.0 [facility] ResourcesXyjvphaABIFBUPAFL8434-93-57 18:46:00 Test Item Value Reference Range Interpretation Comments MCV (test code = MCV) 92.0 80.0-94.0 [facility] ResourcesGdyvejkELODVKUKSQ3498-10-30 18:46:00 Test Item Value Reference Range Interpretation Comments Hct (test code = Hct) 44.5 42.0-54.0 [facility] ResourcesCsnvtlqXOFBKUDGWC5093-36-98 18:46:00 Test Item Value Reference Range Interpretation Comments MCHC (test code = MCHC) 32.4 32.0-36.[address] [facility]kdqddyHGGWIGVHLC6753-79-20 18:46:00 Test Item Value Reference Range Interpretation Comments [place]-Hep C Ab (test Negative *NA*(07/22/14 code = [place]-Hep C 1:46 PM) Ab) [facility] AND [id number] 18:46:00 Test Item Value Reference Range Interpretation Comments UA Urobilinogen (test code = UA <=1.0 mg/dL 0.1-1.0 Urobilinogen) [facility] AND [id number] 18:46:00 Test Item Value Reference Range Interpretation Comments UA Sq Epi (test code = UA Sq Epi) None Seen [facility] AND [id number] 18:46:00 Test Item Value Reference Range Interpretation Comments UA Leuk Est (test Negative (07/22/14 1:46 code = UA Leuk Est) PM) [facility] AND [id number] 18:46:00 Test Item Value Reference Range Interpretation Comments UA Nitrite (test code Negative (6/9/15 1:46 = UA Nitrite) PM) [facility] AND [id number] 18:46:00 Test Item Value Reference Range Interpretation Comments UA Blood (test code = Negative (07/22/14 1:46 UA Blood) PM) [facility] AND [id number] 18:46:00 Test Item Value Reference Range Interpretation Comments UA Ketones (test code = UA Negative mg/dL Ketones) [facility] AND [id number] 18:46:00 Test Item Value Reference Range Interpretation Comments UA Bili (test code = Negative *NA*(07/22/14 UA Bili) 1:46 PM) [facility] AND [id number] 18:46:00 Test Item Value Reference Range Interpretation Comments UA Bacteria (test code = UA Occasional /HPF Bacteria) [facility] AND [id number] 18:46:00 Test Item Value Reference Range Interpretation Comments UA RBC (test code = no gt See_Comment [Automa elizabeth message] The UA RBC) system which ge nerated this result transmit elizabeth reference range : <=2. The reference range was not used to interpr et this result as lukas l/abnormal. [facility] AND [id number] 18:46:00 Test Item Value Reference Range Interpretation Comments UA WBC (test code = 1 See_Comment [Automa elizabeth message] The UA WBC) system which ge nerated this result transmit elizabeth reference range : <=5. The reference range was not used to interpr et this result as lukas l/abnormal. [facility] AND [id number] 18:46:00 Test Item Value Reference Range Interpretation Comments UA Glucose (test code = UA Glucose) 30 mg/dL [facility] AND [id number] 18:46:00 Test Item Value Reference Range Interpretation Comments UA Protein (test code = UA Negative mg/dL Protein) [facility] AND [id number] 18:46:00 Test Item Value Reference Range Interpretation Comments UA pH (test code = UA pH) 6.5 5.0-8.0 [facility] AND [id number] 18:46:00 Test Item Value Reference Range Interpretation Comments UA Turbidity (test code = Clear (07/22/14 1:46 UA Turbidity) PM) [facility] AND [id number] 18:46:00 Test Item Value Reference Range Interpretation Comments UA Spec Grav (test code = UA Spec Grav) 1.010 [facility] AND [id number] 18:46:00 Test Item Value Reference Range Interpretation Comments UA Color (test code = Light Yellow UA Color) *NA*(07/22/14 1:46 PM) [facility] [id number] 18:46:00 Test Item Value Reference Range Interpretation Comments B/C Ratio (test code = B/C Ratio) 18 - [facility] RopvenwBDLFLEZNJNFU6076-31-34 18:46:00 Test Item Value Reference Range Interpretation Comments A/G Ratio (test code = A/G Ratio) 1.1 0.7-1.6 [facility]"
[2022-06-20] MEDS ORDERED: LORazepam 2 MG/ML VIAL ONE (20:39)
--- NOTE | 2022-06-20 21:25 | RAD REPORT ---
[facility]57 pm CLINICAL HISTORY: CHEST PAIN COMPARISON: Chest Single View dated 12/02/2020; CHEST SINGLE VIEW dated 08/14/2013; CHEST SINGLE VIEW dated 05/12/2013; CHEST SINGLE VIEW dated 09/10/2002 TECHNIQUE: Portable AP view of the chest. FINDINGS: The lungs are clear. No pneumothorax or effusion. The cardiomediastinal contours are unrem arkable. IMPRESSION: No acute cardiopulmonary process.
[2022-06-20 21:35] LABS: Protime INR 1.43
[2022-06-20 21:46] LABS: ALT/SGPT 27 U/L (16-61); AST/SGOT 16 U/L (15-37); Alkaline Phosphatase 108 U/L (45-117); BUN Blood Urea Nitrogen 12 mg/dL (7-18); Bicarbonate 24 mEq/L (21-32); Bilirubin Direct 0.3 mg/dL (0-0.2); Bilirubin Total 1.1 mg/dL (0.2-1.0); Glomerular Filtration Rate 86 ml/min (=/>90); Glucose Level 104 mg/dL (74-106); Potassium 3.3 mEq/L (3.5-5.1); Protein, Total 7.5 g/dL (6.4-8.2); Sodium Level 135 mEq/L (136-145)
[2022-06-20 21:47] LABS: Albumin 3.8 g/dL (3.4-5.0); Magnesium 2.1 mg/dL (1.6-2.4); NT PRO-BNP 206 pg/mL (<125); Troponin High Sensitivity 9.5 pg/mL (<58.9)
--- NOTE | 2022-06-20 22:07 | RAD REPORT ---
EXAM DESCRIPTION: US - Extrem Venous W Compress [place] - 06/20/2022 9:49 pm CLINICAL HISTORY: Swelling bilateral COMPARISON: None. TECHNIQUE: Real-time sonographic evaluation of the bilateral lower extremity deep venous systems was performed. FINDINGS: Normal compressibility, flow augmentation, phasic flow and spontaneous flow is identified in both the left and right lower extremity deep venous systems. No intraluminal filling defects seen. IMPRESSION: No DVT in either lower extremity.
[2022-06-20] MEDS ORDERED: FUROSEMIDE 40 MG/4 ML VIAL ONE (22:13)
[2022-06-20 22:16] LABS: Absolute Lymphocytes (CBC) 0.8 K/uL (0.7-4.9); Hematocrit 21.1 % (39.6-49.0); Lymphocytes % 23.7 % (15.3-44.8); MCV 86.7 fL (80-100); RBC Red Blood Cell Count 2.44 M/uL (4.33-5.43)
--- NOTE | 2022-06-20 22:31 | RAD REPORT ---
EXAM DESCRIPTION: CT - Head Brain Wo Cont - 06/20/2022 10:13 pm CLINICAL HISTORY: CONFUSED COMPARISON: No comparisons TECHNIQUE: Noncontrast head CT images ad were obtained without IV contrast. Multiplanar reformats we re generated and reviewed. All CT scans are performed using dose optimization technique as appropriate and may include automated exposure control or mA/KV adjustment according to patient size. FINDINGS: No intracranial hemorrhage, mass, or edema. Midline structures are unremarkable. Normal ventricular caliber for age. Healy-white matter differentiation is preserved, without evidence of acute infarct. No abnormal extra- axial fluid collections. Mastoid air cells are near. Mucous retention cysts at the bases of both maxillary sinuses. No acute bony findings. IMPRESSION: No evidence of an acute intracranial process.
[2022-06-21] MEDS ORDERED: HALOPERIDOL LACT 5 MG/ML INJ ONE (00:04)
[2022-06-21] MEDS ORDERED: DIPHENHYDRAMINE 50 MG/ML VIAL ONE (00:04)
[2022-06-21 00:11] LABS: Blood Morphology Comment NOTED (NOT SEEN); Platelet Estimate DECR; Polychromasia 2+; Teardrop Cell 2+; White Blood Cell Scan OK (OK)
--- NOTE | 2022-06-21 01:54 | EDPHYS ---
Physician Documentation [facility] Name: Kevin Kaye Age: 61 yrs Sex: Male : 1960 Arrival Date: 06/20/2022 Time: 20:08 Bed 17 Private MD: ED Physician Akhil Finnegan HPI: 06/20 20:20 This 61 yrs old Male presents to ER via Unassigned with complaints of sp4 agitation. 23:13 This 61 yrs old Male presents to ER via EMS with complaints of agitation. sp4 20:20 61-year-old male with history of bipolar disorder presents with acute agitation. EMS sp4 brought the patient with police escort stating that patient was found and agitated condition covered in ants laying outside. Patient on presentation screaming incoherently and is not able to provide any history. Patient appears highly agitated also has bilateral moderate to severe lower extremity swelling with pitting. Again HPI ROS not available secondary to agitation . Historical: - Allergies: 06/21 07:50 PENICILLINS (rash); ph - PMHx: 07:50 Anxiety; Bipolar disorder; Depression; ph - Immunization history:: Adult Immunizations unknown. - Social history:: Smoking status: Patient reports use of chewing tobacco. The patient lives alone, IN A MOTEL. - Family history:: not pertinent. ROS: 06/20 23:13 Constitutional: Negative for fever, chills, and weight loss, further ROS is not sp4 available on presentation All other systems are negative. Unable to obtain ROS due to altered mental status. Exam: 23:13 Constitutional: This is a well developed, well nourished patient , arrives with EMS sp4 with acute agitation, restless, screaming incoherently, requesting to be sent to [facility]. Patient is not combative, has moderate to severe bilateral lower extremity edema. Also poor hygiene unkempt appearing also covered with ants, apparently patient also not wearing any pants Head/Face: Normocephalic, atraumatic. Eyes: Pupils equal round and reactive to light, extra-ocular motions intact. Lids and lashes normal. Conjunctiva and sclera are not injected. Cornea within normal limits. Periorbital areas with no swelling, redness, or edema. ENT: Nares patent. No nasal discharge, no septal abnormalities noted. Tympanic membranes are normal and external auditory canals are clear. Oropharynx with no redness, swelling, or masses, exudates, or evidence of obstruction, uvula midline. Mucous membranes moist. Neck: Trachea midline, no thyromegaly or masses palpated, and no cervical lymphadenopathy. Supple, full range of motion without nuchal rigidity, or vertebral point tenderness. No Meningismus. Chest/axilla: Normal chest wall appearance and motion. Nontender with no deformity. No lesions are appreciated. Cardiovascular: Regular rate and rhythm with a normal S1 and S2. No gallops, murmurs, or rubs. Normal PMI, no JVD. No pulse deficits. Bilateral lower extremity edema that is moderate to severe with pitting extending all the way to the abdomen. Respiratory: Lungs have equal breath sounds bilaterally, clear to auscultation and percussion. No rales, rhonchi or wheezes noted. No increased work of breathing, no retractions or nasal flaring. Abdomen/GI: Soft, non-tender, with normal bowel sounds. No distension or tympany. No guarding or rebound. No evidence of tenderness throughout. Back: No spinal tenderness. No costovertebral tenderness. Male : Normal genitalia with no discharge or lesions. Skin: Warm, dry with normal turgor. Normal color with no rashes, no lesions, and no evidence of cellulitis. Poor hygiene, MS/ Extremity: Pulses equal, no cyanosis. Neurovascular intact. Bilateral lower extremity moderate to severe edema with pitting. Nonambulatory on arrival Neuro: Awake and alert, restless and agitated, grossly no lateralizing neurologic deficits Psych: Awake, alert, disoriented, incoherent, restless and agitated 23:13 ECG was reviewed by the Attending Physician. Normal sinus rhythm, normal EKG, heart sp4 rate 74, EKG time 2251 23:44 Abdomen/GI: Rectal exam: is unremarkable, No blood, no melena, no fissure, no fistula, sp4 no mass, no hemorrhage. Vital Signs: 20:00 BP 122 / 58; Pulse 86; Resp 20; Temp 100; Pulse Ox 100% on R/A; Weight 81.65 kg; Height jj7 5 ft. 6 in. ; Pain 7/10; 22:00 BP 130 / 57; Pulse 78; Resp 16; Pulse Ox 100% ; j7 23:00 BP 118 / 52; Pulse 72; Resp 19; Pulse Ox 98% ; j7 06/21 00:00 BP 102 / 85; Pulse 72; Resp 18; Pulse Ox 99% ; j7 01:00 Pulse 73; Resp 17; Pulse Ox 100% ; j7 02:00 BP 111 / 46; Pulse 70; Resp 17; Temp 98.7; Pulse Ox 100% ; j7 03:00 BP 105 / 51; Pulse 65; Resp 20; Pulse Ox 99% ; j7 04:00 BP 99 / 52; Pulse 64; Resp 17; Pulse Ox 97% ; j7 07:15 BP 114 / 57; Pulse 71; Resp 18; Temp 98.1; Pulse Ox 99% on R/A; ph 06/20 20:00 Body Mass Index 29.05 (81.65 kg, 167.64 cm) [facility] 06/20 20:00 Pain Scale: Adult [facility] MDM: 06/20 20:19 Patient medically screened. sp4 06/21 01:49 Differential Diagnosis altered mental status, sepsis, flu. Data reviewed: vital signs, sp4 nurses notes, EMS record, old medical records, lab test result(s), EKG, radiologic studies, CT scan, plain films. 01:50 Consideration of Admission/Observation Patient was admitted/placed on observation. sp4 Escalation of care including admission/observation considered. ED course: CT chest abdomen pelvis -incompletely distended bladder with deformity and abnormal contour, abnormal mucosal thickening suspected, findings could be consistent with severe cystitis but correlate with cystoscopy. Consider neoplastic process. Mild bilateral hydronephrosis and hydroureter likely related to bladder abnormality. Lytic lesion posterior T11 vertebral body with involvement of pedicle. This findings suspicious for neoplastic process either primary or secondary. Correlate with radioisotope PET scan. . 06:38 ED course: I spoke with the patient's son over the phone. Patient's son states that sp4 patient is a heavy drinker and drinks daily heavy amounts of alcohol. 1 week ago patient was managed at [facility] in [place] for blood clots in bilateral extremities. Patient has no known history of cancer. Since alcohol level is undetectable on arrival it is presumed that patient was agitated secondary to delirium tremens. Patient also takes daily benzodiazepines based on the report from his son. . ED course: Patient's blood was started at 0 6:06 AM. Now we are looking to send patient to [facility] for further management. 06/20 20:18 Order name: Basic Metabolic Panel; Complete Time: 01:20 sp4 06/20 20:18 Order name: CBC with Diff; Complete Time: 01:20 sp4 06/20 20:18 Order name: LFT's; Complete Time: 01:20 sp4 06/20 20:18 Order name: Magnesium; Complete Time: 01:20 sp4 06/20 20:18 Order name: NT PRO-BNP; Complete Time: 01:20 sp4 06/20 20:18 Order name: PT-INR; Complete Time: 21:49 sp4 06/20 20:18 Order name: Troponin HS; Complete Time: 01:20 sp4 06/20 20:21 Order name: Alcohol Level; Complete Time: 22:56 sp4 06/20 20:21 Order name: Urinalysis W/Microscopic; Complete Time: 04:17 sp4 06/20 20:21 Order name: Urine Drug Screen; Complete Time: 04:17 sp4 06/20 23:06 Order name: Type And Screen sp4 06/20 23:13 Order name: [place]; Complete Time: 01:20 la1 06/21 00:01 Order name: Acetaminophen Level; Complete Time: 01:20 EDMS 06/21 00:01 Order name: Thyroid Stimulating Hormone; Complete Time: 01:20 EDMS 06/21 00:12 Order name: CBC Smear Scan; Complete Time: 01:20 EDMS 06/21 01:21 Order name: ABO/RH no charge; Complete Time: 01:49 EDMS 06/21 02:17 Order name: COVID-19 SARS RT PCR rv1 06/21 02:43 Order name: SARS-COV-2 RT PCR; Complete Time: 04:17 EDMS 06/21 03:05 Order name: Influenza Screen (a \T\ B) sp4 06/21 04:51 Order name: Packed RBC Leukored EDMS 06/20 20:18 Order name: XRAY Chest (1 view); Complete Time: 21:49 sp4 06/20 20:55 Order name: Extrem Venous W Compression Denilson US; Complete Time: 22:56 sp4 06/20 21:24 Order name: Head Brain Wo Cont; Complete Time: 22:56 EDMS 06/20 23:10 Order name: CT Chest, Abdomen, Pelvis - W/Contrast [facility] 06/20 20:18 Order name: EKG; Complete Time: 20:19 sp4 06/20 20:18 Order name: Cardiac monitoring [facility] 06/20 20:18 Order name: EKG - Nurse/Tech; Complete Time: 23:17 [facility] 06/20 20:18 Order name: IV Saline Lock; Complete Time: 00:00 [facility] 06/20 20:18 Order name: Labs collected and sent; Complete Time: 21:41 [facility] 06/20 20:18 Order name: O2 Per Protocol; Complete Time: 21:42 [facility] 06/20 20:18 Order name: O2 Sat Monitoring; Complete Time: 21:42 [facility] 06/20 20:22 Order name: Gill [facility] 06/20 21:55 Order name: Misc. Order: Redraw; BLUE TOP ; Complete Time: 00:00 rv1 EC/08 23:13 Rate is 74 beats/min. Rhythm is regular, Normal Sinus Rhythm. QRS [place] is Normal. IN sp4 interval is normal. QRS interval is normal. QT interval is normal. T waves are Normal. No ST changes noted. Clinical impression: Normal ECG. Interpreted by me. Administered Medications: 20:12 Drug: Geodon IM 20 mg Route: IM; Site: right deltoid; 3 06/21 02:36 Follow up: Response: Marked relief of symptoms j7 06/20 20:39 Drug: LORazepam IM 2 mg Route: IM; Site: left deltoid; jj7 06/21 02:36 Follow up: Response: No change in condition j06/20 22:22 Drug: Furosemide IVP 40 mg Route: IVP; Site: left antecubital; j7 06/21 00:04 Drug: Haloperidol IVP 5 mg Route: IVP; Site: left antecubital; kd3 02:35 Follow up: Response: Marked relief of symptoms j7 00:04 Drug: diphenhydrAMINE IVP 50 mg Route: IVP; Site: left antecubital; kd3 02:35 Follow up: Response: Marked relief of symptoms jj7 07:40 Drug: Librium - chlordiazePOXIDE PO 50 mg Route: PO; ph Disposition Summary: 06/21/22 01:54 Transfer Ordered Transfer Location: [facility] sp4 Reason: Higher level of care sp4 Condition: Serious sp4 Problem: new sp4 Symptoms: are unchanged sp4 [facility] ph Diagnosis - Right groin mass, agitation, urinary bladder mass, bilateral hydronephrosis, acute sp4 hyperactive delirium, bilateral lower extremity swelling with pitting, pancytopenia, anemia, restlessness and agitation - T11 vertebral lytic lesion, metastatic malignancy sp4 Forms: - Medication Reconciliation Form sp4 - SBAR form sp4 Signatures: Dispatcher [employer] EDMS Wilmer Chandra, MAE-C CERTIFIED PERSONAL CHEF-Cla1 Ailyn Mello RN RN ph Ambika Haeys RN RN kd3 Arnaldo Shaffer RN RN jj7 Danielle Castillo rv1 Akhil Finnegan MD MD sp4 Corrections: (The following items were deleted from the chart) 06/20 21:24 20:19 Head Brain W Cont+CT.RAD.BRZ ordered. EDNH EDMS 23:14 20:20 61-year-old male with history of bipolar disorder presents with acute agitation. sp4 EMS brought the patient with police escort stating that patient was found and agitated condition covered in ants laying outside. Patient on presentation screaming incoherently and is not able to provide any history. Patient appears intoxicated, also has bilateral moderate to severe lower extremity swelling with pitting. Again HPI ROS not available secondary to agitation and intoxication.. sp4 06/21 00:01 06/20 23:14 ACETAMINOPHEN+C.LAB.BRZ ordered. EDMS EDMS 06/21 00:01 06/20 23:15 THYROID STIMULAT HORMONE+C.LAB.BRZ ordered. EDNH EDMS 06/21 07:50 01:54 [facility]
--- NOTE | 2022-06-21 01:54 | ER ---
Nurse's Notes [facility] Name: Kevin Kaye Age: 61 yrs Sex: Male : 1960 Arrival Date: 06/20/2022 Time: 20:08 Bed 17 Private MD: Diagnosis: Right groin mass, agitation, urinary bladder mass, bilateral hydronephrosis, acute hyperactive delirium, bilateral lower extremity swelling with pitting, pancytopenia, anemia, restlessness and agitation;T11 vertebral lytic lesion, metastatic malignancy Presentation: 06/20 20:00 Chief complaint: EMS states: EMS WAS CALLED DUE TO FACT PT WAS IN MOTEL ROOM URINATING jj7 AND SPITTING EVERYWHERE. BEING BELLIGERENT AND COMBATIVE WHEN THEY ARRIVED. PT WAS SCREAMING AND BEING UNCOOPERATIVE UPON ARRIVAL TO ER. Coronavirus screen: At this time, the client does not indicate any symptoms associated with coronavirus-19. Ebola Screen: No symptoms or risks identified at this time. Initial Sepsis Screen: Does the patient meet any 2 criteria? No. Patient's initial sepsis screen is negative. Does the patient have a suspected source of infection? No. Patient's initial sepsis screen is negative. Risk Assessment: Do you want to hurt yourself or someone else? Patient reports no desire to harm self or others. Onset of symptoms is unknown. Care prior to arrival: Medication(s) given: VERSED. Care prior to arrival: Medication(s) given: ATIVAN?. Activity prior to arrival: combative, confused. 20:00 Method Of Arrival: EMS: [facility] jj7 20:00 Acuity: ARI 2 jj7 Triage Assessment: 20:00 General: Appears uncomfortable, unkempt, Behavior is agitated, anxious, combative, jj7 inappropriate for age. Pain: Complains of pain in right leg Pain currently is 7 out of 10 on a pain scale. Noted to be agitated. Derm: Skin REDNESS AND SWELLING TO RIGHT LEG. LEG VERY TIGHT Skin is red. Historical: - Allergies: 06/21 07:50 PENICILLINS (rash); ph - PMHx: 07:50 Anxiety; Bipolar disorder; Depression; ph - Immunization history:: Adult Immunizations unknown. - Social history:: Smoking status: Patient reports use of chewing tobacco. The patient lives alone, IN A MOTEL. - Family history:: not pertinent. Screenin/08 20:00 Abuse screen: Denies threats or abuse. Nutritional screening: No deficits noted. jj7 Tuberculosis screening: No symptoms or risk factors identified. Assessment: 20:00 Reassessment: SEE TRIAGE ASSESSMENT. jj7 20:00 Reassessment: PT HAD KNIFE IN BELONGING ACCORDING TO EMS. OFFICER SHAYY TOOK PT'S KNIFE jj7 WITH HIM [facility]. 20:43 Reassessment: PT REFUSING IV AND BLOOD WORK. PT STATES HE WANTS TO CALL HIS SON AND HE jj7 IS LEAVING. PT ENCOURAGED TO STAY.. PT GETS DRESSED AND SITS IN CHAIR. SON CALLED. SON IN LOBBY. SON AND FAMILY BOUGHT BACK INTO ROOM. SPEAKING WITH PT. ENCOURAGING HIM TO STAY FOR TREATMENT. CHARGE NURSE AMBIKA CORONADO AT BEDSIDE SPEAKING WITH PT. PT AGREES TO STAY AND WILL GET BLOOD WORK AND IV IF WITH ULTRASOUND. AMBIKA CORONADO A BEDSIDE WITH ULTRASOUND. 23:40 Reassessment: PT SLEEPING COMFORTABLY IN BED. NO DISTRESS NOTED. VS STABLE. j7 06/21 01:40 Reassessment: PT SLEEPING COMFORTABLY IN BED. SO DISTRESS NOTED. VS STABLE. jj7 06:43 Reassessment: REPORT GIVEN TO COURTNEY Trevino RN. jj7 07:13 Reassessment: PT REPORT GIVEN TO NICKI CORONADO. j7 07:45 Reassessment: Patient appears in no apparent distress at this time. Patient and/or ph family updated on plan of care and expected duration. Pain level reassessed. Pt asleep w/ VSS, [facility] at bedside for transport, report given and PRBCs handed off to EMT-P, pt awakened prior to leaving to take PO meds, was calm and cooperative, pt transferred to [facility]. Vital Signs: 06/20 20:00 BP 122 / 58; Pulse 86; Resp 20; Temp 100; Pulse Ox 100% on R/A; Weight 81.65 kg; Height j7 5 ft. 6 in. ; Pain 7/10; 22:00 BP 130 / 57; Pulse 78; Resp 16; Pulse Ox 100% ; j7 23:00 BP 118 / 52; Pulse 72; Resp 19; Pulse Ox 98% ; jj7 06/21 00:00 BP 102 / 85; Pulse 72; Resp 18; Pulse Ox 99% ; j7 01:00 Pulse 73; Resp 17; Pulse Ox 100% ; jj7 02:00 BP 111 / 46; Pulse 70; Resp 17; Temp 98.7; Pulse Ox 100% ; jj7 03:00 BP 105 / 51; Pulse 65; Resp 20; Pulse Ox 99% ; jj7 04:00 BP 99 / 52; Pulse 64; Resp 17; Pulse Ox 97% ; jj7 07:15 BP 114 / 57; Pulse 71; Resp 18; Temp 98.1; Pulse Ox 99% on R/A; ph 06/20 20:00 Body Mass Index 29.05 (81.65 kg, 167.64 cm) j7 06/20 20:00 Pain Scale: Adult j7 ED Course: 06/20 20:00 Arm band placed on right wrist. Patient placed in an exam room, on a stretcher, on j7 monitoring and evaluation advisor, on pulse oximetry. 20:00 Patient has correct armband on for positive identification. Bed in low position. Call j7 light in reach. Side rails up X2. Client placed on continuous cardiac and pulse oximetry monitoring. NIBP monitoring applied. Warm blanket given. 20:00 No provider procedures requiring assistance completed. jj7 20:12 Patient arrived in ED. rv1 20:18 Akhil Finnegan MD is Attending Physician. sp4 20:29 Arnaldo Shaffer, CLIFF is Primary Nurse. jj7 20:59 XRAY Chest (1 view) In Process Unspecified. EDMS 20:59 Triage completed. jj7 21:07 Inserted saline lock: 20 gauge in left antecubital area, using aseptic technique. Blood jj7 collected. 21:51 Extrem Venous W Compression Denilson US In Process Unspecified. EDMS 22:15 Head Brain Wo Cont In Process Unspecified. EDMS 06/21 00:05 Gill cath inserted, using sterile technique, 16 Fr., by de, balloon inflated, to jj7 gravity drainage, clamped. 00:56 CT Chest, Abdomen, Pelvis - W/Contrast In Process Unspecified. EDMS 02:01 Initiated transfer with [facility] With Dung Christina. rv1 03:08 SARS-COV-2 RT PCR Sent. rv1 04:47 Pt accepted to [facility] by Dr. Nava to 20 [facility] 2009. rv1 07:34 Nicki Mello, RN is Primary Nurse. ph 07:50 Patient transferred, IV remains in place. ph Administered Medications: 06/20 20:12 Drug: Geodon IM 20 mg Route: IM; Site: right deltoid; kd3 06/21 02:36 Follow up: Response: Marked relief of symptoms jj7 06/20 20:39 Drug: LORazepam IM 2 mg Route: IM; Site: left deltoid; jj7 06/21 02:36 Follow up: Response: No change in condition jj7 06/20 22:22 Drug: Furosemide IVP 40 mg Route: IVP; Site: left antecubital; jj7 06/21 00:04 Drug: Haloperidol IVP 5 mg Route: IVP; Site: left antecubital; kd3 02:35 Follow up: Response: Marked relief of symptoms jj7 00:04 Drug: diphenhydrAMINE IVP 50 mg Route: IVP; Site: left antecubital; kd3 02:35 Follow up: Response: Marked relief of symptoms jj7 07:40 Drug: Librium - chlordiazePOXIDE PO 50 mg Route: PO; ph Medication: 06/20 20:00 VIS not applicable for this client. jj7 Intake: 06/21 06:30 PO: 0ml; IV: 0ml; Total: 0ml. jj7 Output: 06:30 Urine: 1500ml (Gill); Total: 1500ml. jj7 Outcome: 01:54 ER care complete, transfer ordered by . sp4 07:44 Transferred by ground EMS [facility]. to [facility], Transfer ph form completed. X-rays sent w/ patient. 07:44 Condition: stable 07:44 Instructed on the need for transfer. 07:50 Patient left the ED. ph Signatures: Dispatcher [employer] EDMS Nicki Mello, RN RN Ambika Parr RN RN kd3 Arnaldo Shaffer RN RN jj7 Danielle Castillo rv1 Akhil Finnegan MD MD sp4
[2022-06-21 03:59] LABS: Barbiturates NEGATIVE (NEGATIVE); Benzodiazepines POSITIVE (NEGATIVE); Cocaine NEGATIVE (NEGATIVE); METHAMPHETAM NEGATIVE (NEGATIVE); Methadone NEGATIVE (NEGATIVE); Opiates NEGATIVE (NEGATIVE); Phencyclidine NEGATIVE (NEGATIVE); THC Cannibis NEGATIVE (NEGATIVE)
[2022-06-21 04:17] LABS: Specific Gravity 1.018 (1.005-1.030); Urine Bacteria None Seen /HPF (<20); Urine Bilirubin NEGATIVE (Negative); Urine Blood Negative (Negative); Urine Clarity Clear (Clear); Urine Color Colorless (Yellow); Urine Glucose NEGATIVE (Negative); Urine Protein NEGATIVE (Negative); Urine RBC None Seen /HPF (None Seen); Urine Urobilinogen Normal (Normal); Urine pH 5.5 (5.0-7.0)
[2022-06-21] MEDS ORDERED: NA CHLORIDE 0.9% 250 ML ONE (06:09)
[2022-06-21] MEDS ORDERED: chlordiazePOXIDE HCl 25 MG CAP ONE (07:42)
[2022-06-21 08:21] VITALS: BP 114/57; TEMP 98.1; O2SAT 99
--- NOTE | 2022-06-21 13:26 | RAD REPORT ---
EXAM DESCRIPTION: Chest Abdomen Pelvis W Cont CLINICAL HISTORY: 61 years Male CHEST PAIN COMPARISON: None TECHNIQUE: Images were obtained in axial, sagittal, and coronal planes. Intravenous contrast was adm inistered. This exam was performed according to our departmental dose-optimization program which includes use of Automated Exposure Control, adjustment of the mA and/or kV according to patient size and/or use of i terative reconstruction technique. FINDINGS: CT chest: No aortic dissection or dilatation. No abnormality pulmonary arteries bilaterall y. No pericardial or pleural effusions bilaterally. No adenopathy. No lung parenchymal infiltrates or nodules seen. No pneumothorax. Lytic lesion T11 vertebral body posteriorly on left which appears to involve the pedicle and vertebral body. Soft tissue component present. The finding is most suspicious for neoplasm. This finding is best identified on sagittal series 205 image 86 as well as coronal ser ies [address] abdomen and pelvis: No abnormality involving the liver, spleen, pancreas, gallbladder, or adrenal glands bilaterally. No obstructing renal or ureteral calculi bilaterally. Mild bilateral hydronephros is and hydroureter. No Gill catheter balloon within the bladder. Bladder is decompressed. Abnormal a ppearing bladder contour with irregular mucosal thickening and deformity. Stent inferior vena cava. N o dilatation of abdominal aorta. No adenopathy or abnormal fluid collections seen. Appendix not well identified however no secondary signs for appendicitis. No bowel obstruction, perforation, or inflamm ation. No acute osseous abnormality lumbosacral spine. IMPRESSION: Incompletely distended bladder with deformity and abnormal contour. Abnormal mucosal thi ckening suspected. The findings could be consistent with severe cystitis however correlation with cys toscopy could be considered to further exclude neoplastic process. Mild bilateral hydronephrosis and hydroureter likely related to bladder abnormality however inflammatory process or recently passed gordon culi not excluded. Lytic lesion posterior T11 vertebral body with involvement pedicle. This finding i s suspicious for neoplastic process either primary or secondary. Correlation with radio isotope PET/C T scan suggested for further characterization. Electronically signed by: Corrine Anderson MD 06/21/2022 1:13 AM CDT Due to temporary technical issues with the PACS/Fluency reporting system, reports are being signed by the in house radiologists without review as a courtesy to insure prompt reporting. The interpreting radiologist is fully responsible for the content of the report.
--- NOTE | 2022-06-22 16:01 | EKG ---
Test Date: 2022-06-20 Test Time: 22:51:22 Nut Processing Supervisor: SHERON MEASUREMENT RESULTS: Intervals: Rate: 74 [place]: 156 QRSD: 88 QT: 388 QTc: 430 [place]: P: 45 [place]: 156 QRS: 54 T: 34 INTERPRETIVE STATEMENTS: Normal sinus rhythm Normal ECG Compared to ECG 08/14/2013 11:40:08 Sinus bradycardia no longer present Electronically Signed On 06-22-22 15:57:44 CDT by Paco Quach
== END 2022-06-21 07:50 | disposition short-term general hospital (02) ==
LOC: ER 20:08
DX: R45.1 Restlessness and agitation (principal); N13.30 Unspecified hydronephrosis; D61.818 Other pancytopenia; R41.0 Disorientation, unspecified; N32.9 Bladder disorder, unspecified; R19.09 Other intra-abdominal and pelvic swelling, mass and lump; R22.43 Localized swelling, mass and lump, lower limb, bilateral; D64.9 Anemia, unspecified; S24.114A Complete lesion at T11-T12 level of thoracic spinal cord, initial encounter; F31.9 Bipolar disorder, unspecified; F17.220 Nicotine dependence, chewing tobacco, uncomplicated; Z20.822 Contact with and (suspected) exposure to COVID-19; Z88.0 Allergy status to penicillin
CPT/HCPCS: 85025; 81001; 80048; 36415; 86900; 83735; 86850; 85610; 80178; 86901; 80076; 84443; 84484; 83880; 80307; 70450; 71260; 74177; 71045; 93970; U0003; Q9967; J1940; J3486; P9016; J7050; G0480 ×2; 93005

== ENCOUNTER 2022-07-03 23:21 | Emergency (ER) | payer OTHER ==
--- OUTSIDE RECORDS SUMMARY | 2022-07-03 23:48 | XMS REPORT | Continuity of Care Document ---
:1960 Author Organization [facility] t Address [address] [facility] [place] [address] Care Team Providers Name Role Phone Asked, No Pcp Primary Care Physician Unavailable [id number] Attending Clinician Unavailable IZABELA PHAM Attending Clinician Unavailable IZABELA PHAM Attending Clinician Unavailable LAWRENCE PETERSON Attending Clinician Unavailable LAWRENCE PETERSON Attending Clinician Unavailable ROBINA BECERRIL Attending Clinician Unavailable LAUREEN MOORE Attending Clinician Unavailable SUNNY ALFONSO Attending Clinician Unavailable Sunny Alfonso MD Attending Clinician [phone] Olga Abraham MD Attending Clinician Laureen Moore MD Attending Clinician Robina Becerril MD Attending Clinician Kvng CORONADO, Elyssa Thornton Attending Clinician Unavailable ALLAN LYNCH Attending Clinician Unavailable Meche Perry Attending Clinician Luis Huerta DO Attending Clinician Jaye Palafox MD Attending Clinician Lance Neal DO Attending Clinician RENEE PAREKH Attending Clinician Unavailable WOO DURAN Attending Clinician Unavailable RODRIGO BLACKMON Attending Clinician Unavailable Rodrigo Benavidez Attending Clinician Carlos Corbin MD Attending Clinician Doctor Unassigned, [place] Attending Clinician Unavailable Dawson Choudhury MD Attending Clinician DAWSON CHOUDHURY Attending Clinician Unavailable DAWSON CHOUDHURY Attending Clinician Unavailable , [facility] Sleep Lab Bed Attending Clinician Unavailable Susan Manjarrez PA-C Attending Clinician SUSAN MANJARREZ Attending Clinician Unavailable DELROY FARAH Attending Clinician Unavailable Delroy Farah MD Attending Clinician [facility] Attending Clinician Unavailable Andrew CORONADO, Erma Decker Attending Clinician Unavailable MAGDALENE ROMERO Attending Clinician Unavailable Magdalene Heredia Attending Clinician Omaghomsuma WALL Omayemsuma Attending Clinician CARLOS CORBIN Attending Clinician Unavailable Ladonna Bryant DO Attending Clinician MICHAEL SARGENT Attending Clinician Unavailable Michael Fulton Attending Clinician YVON_UZAIR__ Attending Clinician Unavailable BENITO LOPEZ Attending Clinician Unavailable Edgard Leo DO Attending Clinician Kirsten CARTER, Magali Attending Clinician Ted Lion MD Attending Clinician Allen Maravilla MD Attending Clinician Perla CARTER, Georgina Key Attending Clinician [phone] SIENNA POLK Attending Clinician Unavailable LADI RIBERA Attending Clinician Unavailable YASMINE BROOKE Attending Clinician Unavailable MD YASMINE BROOKE Attending Clinician Unavailable Pato Hill MD Attending Clinician Surgery, [facility] General Attending Clinician Unavailable Sofia Malone MD Attending Clinician Surgery, [facility] Vascular Attending Clinician Unavailable Nereida CARTER, Ramana Egan Attending Clinician RAMANA SHEA M.D., RAMANA Acevedo M.D. Attending Clinician Unavailable Christy Moya Attending Clinician [id number] Admitting Clinician Unavailable IZABELA PHAM Admitting Clinician Unavailable OLGA ABRAHAM Admitting Clinician Unavailable ALLAN LYNCH Admitting Clinician Unavailable MICHAEL SARGENT Admitting Clinician Unavailable CARLOS CORBIN Admitting Clinician Unavailable YVON_UZAIR__ Admitting Clinician Unavailable Kirsten CARTER, Magali Admitting Clinician Perla CARTER, Georgina Key Admitting Clinician [phone] YASMINE BROOKE Admitting Clinician Unavailable MD YASMINE BROOKE Admitting Clinician Unavailable Pato Hill MD Admitting Clinician RAMANA SHEA M.D., RAMANA Acevedo Admitting Clinician Tasha ivey Payers Payer Name Policy Type Policy Number Effective Date Expiration Date Zhen benitez [facility] [id number] [facility] [address] PLUS [id number] 2021 CLASSIC NO PREMIUM 00:00:00 O MEDICARE PART A [id number] 2003 00:00:00 [facility] [id number] HALFWAY 00:00:00 [facility] [id number] 2022 00:00:00 WELLCARE VALUE [id number] 2020 00:00:00 Problems Condition Condition Condition Status Onset Resolution Last Treating Co mments Source Name Details Category Date Date Treatment Clinician Date Acute Acute Disease Active [facility] metabolic metabolic 5-14 [facility] encephalop encephalop 00:00: Me dical athy athy 00 Center Toxic Toxic Disease Active [facility] encephalop encephalop 5-14 Al[facility] kes athy athy 00:00: Medical 00 Center Hydronephr Hydronephr Disease Active [facility] osis osis 5-09 [facility] 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 4-14 ity of 00:00: [place] [facility] DVT (deep DVT (deep Disease Active Uni vers venous venous 4-14 [place]y of [place] 00 Medical Branch Bilateral Bilateral Disease Active Uni vers sciatica sciatica 4-13 ity of 00:00: [place] [facility] Obesity Obesity Disease Active Univers (BMI (BMI 4-13 ity of 30-39.9) 30-39.9) 00:00: [place] [facility] Deep vein Deep vein Disease [...] chronicity chronicity ally from request for surgery [id number] Lipoma of Lipoma of Disease Active Overview: Univers right right 4-12 Formattin ity of lower lower 00:00: g of this [place] extremity extremity 00 note Medi gordon might be Branch different from the original. Added automatic ally from request for surgery [id number] Lipoma of Lipoma of Disease Active Uni vers torso torso 4-06 ity of 00:00: [place] 00 Medical Branch Kamryn Kamryn Disease Active Univers 6-24 ity of 00:00: [place] [facility] Rhabdomyol Rhabdomyol Disease Active U nivers ysis ysis 08-03 ity of 00:00: [place] 00 Medical Branch Presence Presence Disease Active Metho di of IVC of IVC 10-30 st filter filter 00:00: Hosp[facility] 00 l Acute Acute Disease Active Methodi chest pain chest pain 15 st 00:00: Hospita 00 l Behavior Behavior Disease Active Unive rs problem problem 07-26 ity of 00:00: [place] 00 Medical Branch Cellulitis Cellulitis Disease Active U nivers and and 07-26 ity of abscess of abscess of [place]: [place] foot foot 00 Medical Branch Alteration Alteration Disease Active U nivers consciousn consciousn 07-26 it y of ess ess 00:00: [place] 00 Medical Branch TESTING TESTING Diagnosis Active 2014-07-28 Memoria FOR DVT FOR DVT 07-22 14:06:00 l Active 00:00: [place] 07/22/2014 00 [facility] 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 2-16 ity of disorder, disorder, 00:[place] chronic chronic 00 Medical condition condition Bran ch with acute with acute exacerbati exacerbati on on Hypertensi Hypertens Problem Active 2014-07-25 Memoria ve raisa 07:19:48 l disorder, disorder, Herm britt systemic systemic arterial arterial (disorder) (disorder) Active Problem 07/25/2014 [facility] History of Past Illness Condition Condition Condition Status Onset Resolution Last Treating Co mments Source Name Details Category Date Date Treatment Clinician Date Discharge Discharge Problem 2014-07-25 2014-07-25 Memoria Diagnosis: Diagnosis: 07-22 07:19:48 07:19:48 l Chronic Chronic 05:00: [place] back pain back pain 00 07/22/2014 07/25/2014 [facility] Discharge Discharge Problem 2014-07-25 2014-07-25 Memoria Diagnosis: Diagnosis: 07-22 07:19:48 07:19:48 l Peripheral Peripheral 05:00: Moshe velazco edema edema 00 07/22/2014 07/25/2014 [facility] Allergies, Adverse Reactions, Alerts Allergy Allergy Status Severity Reaction(s) Onset Inactive Treating Comm ents Source Name Type Date Date Clinician HEPARIN Allergy Active [facility] ANALOGUE 5-10 [facility] 00:00: Medical 00 Center Heparin Propensi Active Patient [facility] Analogue ty to 510 with [facility] adverse 00:00: positive Medical reaction 00 heparin Center s antibody by ISAIAH with OD of 3.000. Confirmat ory testing by serotonin release assay will be sent out. Penicill Propensi Active Rash [facility] in ty to 06-21 [facility] adverse 00:00: Medical reaction 00 Center s PENICILL Allergy Active Low Rash [facility] IN 06-21 [facility] 00:00: Medical 00 Center HEPARIN DRUG Active Unknown-Cmnt Uni vers INGREDI 4 ity of 00:00: [place] 00 Medical Branch Heparin Propensi Active Unknown - HIT-Ab Univ ers ty to See comments 06-04 ity of adverse 00:00: [place] reaction 00 Medical s Branch GABAPENT DRUG Active Other-Cmnt Univ ers IN INGREDI - ity of 00:00: [place] 00 Medical Branch Gabapent Propensi Active Other - See Hot U nivers in ty to comments 4- flashes ity of adverse 00:00: and upset [place] reaction 00 stomach Medical s Branch Penicill DA Active U Rash 2019- SJm ins 2- 00:00: 00 No Known DA Active U 2019- SJm Drug 2-20 Allergie 00:00: s 00 Penicill Propensi Active Rash Univer s ins ty to 1-06 ity of adverse 00:00: [place] reaction 00 Medical s to Branch drug PENICILL Drug Active Rash Univers INS Class 1-06 ity of 00:00: [place] 00 Medical Branch Penicill Penicill Active Memori a in in l [place] Family History Family Member Diagnosis Comments Start Date Stop Date Source Natural father [facility] mother [facility] Social History Social Habit Start Date Stop Date Quantity Comments Source Gender identity [facility] Sexual orientation [facility] History SDOH University o f Alcohol Std Drinks [place] [facility] History SDOH University o f Alcohol Binge [place] [facility] al [facility] History SDOH Social Unive rsity of [facility] Med ical Together Branch History SDOH Social Unive rsity of [facility] Medical Branch History SDOH Social Unive rsity of [facility] Medical Membership Branch History SDOH Social Unive rsity of [facility] Medical Meetings Branch Exposure to 2022-06-06 2022-06-16 Not sure University of SARS-CoV-2 (event) 00:00:00 10:47:00 [place] [facility] History SDOH 2022-05-27 2022-05-27 1 University o f Alcohol Frequency 00:00:00 00:00:00 [place] M edical Branch History SDOH Social 2022-05-27 2022-05-27 5 Unive rsity of Connections Phone 00:00:00 00:00:00 [place] M edical Branch History SDOH Social 2022-05-27 2022-05-27 5 Unive rsity of Connections Living 00:00:00 00:00:00 [place] [facility] History SDOH 2022-05-27 2022-05-27 0 University o f Physical Activity 00:00:00 00:00:00 [place] M edical DPW Branch History SDOH 2022-05-27 2022-05-27 0 University o f Physical Activity 00:00:00 00:00:00 [place] edical MPS Branch History SDOH 2022-05-27 2022-05-27 [...] University o f Transport Non-Med 00:00:00 00:00:00 [place] M edical Branch History SDOH 2022-05-27 2022-05-27 2 University o f Housing Unable to 00:00:00 00:00:00 [place] M edical Pay Branch History SDOH 2022-05-27 2022-05-27 1 University o f Housing Places 00:00:00 00:00:00 [place] Medi gordon Lived Branch History SDOH 2022-05-27 2022-05-27 2 University o f Housing Homeless 00:00:00 00:00:00 [facility] edison Last Year Branch Education 2022-05-26 2022-05-26 21 University of 00:00:00 00:00:00 [facility] Tobacco use and 2022-05-03 2022-05-03 User of Universit y of exposure 00:00:00 00:00:00 smokeless [facility] tobacco [place] Tobacco Comment 2021-09-22 2021-09-22 dipper Universit y of 00:00:00 00:00:00 [facility] History of Social 2019-10-31 2019-10-[address] function 00:00:00 00:00:00 Hospital Alcohol intake 2019-10-29 2019-10-29 Lifetime [facility] 00:00:00 00:00:00 non-drinker Hospital (finding) History of tobacco 2014-08-25 Snuff User Univer sity of use 00:00:00 [facility] Sex Assigned At [address] [address] Alison kes 00:00:00 00:00:00 Medical Center Smoking Status Start Date Stop Date Source Social History [facility] Medications Ordered Filled Start Stop Current Ordering Indication Dosage Frequency Signature Comments Components Source Medication Medication Date Date Medication? Clinician (SIG) Name Name tamsulosin Yes .4mg QD Take 1 [facility] (FLOMAX) 5-12 capsule [facility] 0.4 mg Cap 00:00: (0.4 mg Medi gordon 24 hr 00 total) by Center capsule mouth in the morning. traMADoL 0 Yes 50mg Take [address] [facility] [facility] (ULTRAM) 50 5-11 tablet (50 Alison kes mg tablet 18:24: mg total) Med ical 33 by mouth Center every 6 (six) hours as needed for Pain. Max Daily Amount: 200 mg mirtazapine 0 Yes 45mg QD Take [address] [facility] (REMERON) 5-11 tablet (45 Luke s 45 MG 18:24: mg total) Medical tablet 33 by mouth Center nightly. gabapentin 2022-0 Yes 300mg Q.[id number] Take [address] [facility] (NEURONTIN) 5-11 [id number] capsule [facility] 300 MG 18:24: 3D (300 mg Medical capsule 33 total) by Center mouth in the morning and 1 capsule (300 mg total) at noon and 1 capsule (300 mg total) in the evening. risperiDONE 2022-0 Yes 1mg QD Take [address] [facility] (RisperDAL) 5-11 tablet (1 Yaneth es 1 MG tablet 18:24: mg total) M edical 33 by mouth Center nightly. escitalopra 2022-0 Yes 10mg QD Take [address] [facility] m oxalate 5-11 tablet (10 Luke s (LEXAPRO) 18:24: mg total) Med ical 10 MG 33 by mouth Center tablet in the morning. apixaban 2022-0 Yes 5mg Q.5D Take [address] [facility] (Eliquis) 5 5-11 tablet (5 Yaneth es mg Tab 18:24: mg total) Medica l tablet 33 by mouth Center in the morning and 1 tablet (5 mg total) before bedtime. traMADoL 50 2022-0 Yes Univer s mg tablet 06-13 ity of 00:00: [place] 00 Medical Branch traMADoL 50 2022-0 Yes Univer s mg tablet 06-13 ity of 00:00: [place] [facility] traMADoL 50 2022-0 Yes Univer s mg tablet 06-13 ity of 00:00: [place] 00 Medical Branch traMADoL 50 2022-0 Yes Univer s mg tablet 06-13 ity of 00:00: [place] 00 Medical Branch traMADoL 50 2022-0 Yes Univer s mg tablet 06-13 ity of 00:00: [place] 00 Medical Branch tc 2022-0 2022- No [id number] 25mCi 25 Univer s 99m-medrona 06-07- millicurie i ty of te 13:50: 13:50 , [place] (DRAXIMAGE 00 :00 Intravenou Med ical MDP-25) s, ONCE, 1 Branch injection dose, On Mon millicurie 06/07/22 at 0900, Routine apixaban 5 2022-0 2022- Yes [id number] 5mg Take 1 Univ ers mg tablet 06-07 tablet by ity of 00:00: 04:59 mouth in [place] 00 :00 the Medical morning Branch and [...] of deep vein thrombosis acetaminoph 2022- Yes [id number] 500mg Take 1 Univers en 500 mg 4-25 05-06 tablet by ity of tablet 00:00: 04:59 mouth [place] 00 :00 every 6 Medical (six) Branch hours as needed for Pain for up to 10 days. acetaminoph 2022- Yes [id number] 500mg Take 1 Univers en 500 mg 4-25 05-06 tablet by ity of tablet 00:00: 04:59 mouth [place] 00 :00 every 6 Medical (six) Branch hours as needed for Pain for up to 10 days. acetaminoph 2022- Yes [id number] 500mg Take 1 Univers en 500 mg 4-25 05-06 tablet by ity of tablet 00:00: 04:59 mouth [place] 00 :00 every 6 Medical (six) Branch hours as needed for Pain for up to 10 days. acetaminoph 2022- Yes [id number] 500mg Take 1 Univers en 500 mg 4-25 05-06 tablet by ity of tablet 00:00: 04:59 mouth [place] 00 :00 every 6 Medical (six) Branch hours as needed for Pain for up to 10 days. acetaminoph 2022- Yes [id number] 500mg Take 1 Univers en 500 mg 4-25 05-06 tablet by ity of tablet 00:00: 04:59 mouth [place] 00 :00 every 6 Medical (six) Branch hours as needed for Pain for up to 10 days. acetaminoph 2022- Yes [id number] 500mg Take 1 Univers en 500 mg 4-25 05-06 tablet by ity of tablet 00:00: 04:59 mouth [place] 00 :00 every 6 Medical (six) Branch hours as needed for Pain for up to 10 days. acetaminoph 2022- Yes [id number] 500mg Take 1 Univers en 500 mg 4-25 05-06 tablet by ity of tablet 00:00: 04:59 mouth [place] 00 :00 every 6 Medical (six) Branch hours as needed for Pain for up to 10 days. docusate 2022- Yes [id number] 100mg Take 1 Univers 100 mg 4-25 [...] Indication s: acute pain polyethylen 2022- Yes [id number] 17g Take 1 Univers e glycol 4-25 05-03 Packet by ity o f 3350 17 00:00: 04:59 mouth [place] gram powder 00 :00 every 24 Medi gordon (twenty-fo Branch ur) hours as needed for Constipati on for up to 7 days. docusate 2022- Yes [id number] 100mg Take 1 Univers 100 mg 4-25 05-03 capsule by ity of capsule 00:00: 04:59 mouth in [place] 00 :00 the [facility] morning Branch for 7 days. HYDROcodone 2022- Yes [id number] 1{tbl} Take 1 U nivers -acetaminop 4-25 05-03 tablet by it y of hen 10-325 00:00: 04:59 mouth [place] mg tablet 00 :00 every 6 Medical (six) Branch hours as needed for Pain (scale 7-10) or Pain (scale 4-6) for up to 7 days. Indication s: acute pain polyethylen 2022- Yes [id number] 17g Take 1 Univers e glycol 4-25 05-03 Packet by ity o f 3350 17 00:00: 04:59 mouth [place] gram powder 00 :00 every 24 Medi gordon ([facility] Branch ur) hours as needed for Constipati on for up to 7 days. docusate 2022- Yes [id number] 100mg Take 1 Univers 100 mg 4-25 05-03 capsule by ity of capsule 00:00: 04:59 mouth in [place] 00 :00 the [facility] morning Branch for 7 days. HYDROcodone 2022- Yes [id number] 1{tbl} Take 1 U nivers -acetaminop 4-25 05-03 tablet by it y of hen 10-325 00:00: 04:59 mouth [place] mg tablet 00 :00 every 6 Medical (six) Branch hours as needed for Pain (scale 7-10) or Pain (scale 4-6) for up to 7 days. Indication s: acute pain polyethylen 2022- Yes [id number] 17g Take 1 Univers e glycol 4-25 05-03 Packet by ity o f 3350 17 00:00: 04:59 mouth [place] gram powder 00 :00 every 24 Medi gordon ([facility] Branch ur) hours as needed for Constipati on for up to 7 days. docusate 2022- Yes [id number] 100mg Take 1 Univers 100 mg 4-25 05-03 capsule by ity of capsule 00:00: 04:59 mouth in [place] 00 :00 the Medical morning Branch for 7 days. HYDROcodone 2022- Yes [id number] 1{tbl} Take 1 U nivers -acetaminop 06-07-03 tablet by it y of hen [id number] 00:00: 04:59 mouth [place] mg tablet 00 :00 every 6 Medical (six) Branch hours as needed for Pain (scale 7-10) or Pain (scale 4-6) for up to 7 days. Indication s: acute pain polyethylen 2022- Yes [id number] 17g Take 1 Univers e glycol 06-07- Packet by ity o f 3350 17 00:00: 04:59 mouth [place] gram powder 00 :00 every 24 Medi gordon (twenty-fo Branch ur) hours as needed for Constipati on for up to 7 days. benzocaine- Yes 1{lozen 1 Lozenge, Univers menthoL 4-23 ge} Oral, ity of (CEPACOL 05:03: Q4HPRN, [place] SORE THROAT 14 Starting Medi gordon (CLAUDIA-MEN)) on [facility] 06[facility]22 at Lozenge 0003, Until Discontinu ed, Routine, Sore throat benzocaine- 0 Yes 1{lozen 1 Lozenge, Univers menthoL 4-23 ge} Oral, ity of (CEPACOL 05:03: Q4HPRN, [place] SORE THROAT 14 Starting Medi gordon (CLAUDIA-MEN)) [facility] at Lozenge 0003, Until Discontinu ed, Routine, Sore throat iopamidol 2022- No [id number] 80mL 80 mL, Univers (ISOVUE 06-05 Intravenou ity o f 370-500 mL) 01:36: 01:20 s, ONCE, 1 [place] injection 00 :00 dose, On Medica l 80 mL [facility] 06/04/22 at 2045, Routine apixaban 2022- Yes 10mg [Order 1 Univ ers (ELIQUIS) 06-05 Start] ity of tablet 10 01:00: 00:59 Name: [place] mg 00 :00 apixaban Medical (ELIQUIS) Branch tablet 10 mg Signed Summary: 10 mg, Oral, BID, 14 doses, First dose on [facility] 06/04/22 at 1999, Last dose on [facility] 06/11/22 at 0800, Routine
Indicatio ns: DVT/PE [Order 1 End] [Order 2 Start] Name: apixaban (ELIQUIS) tablet 5 mg Signed Summary: 5 mg, Oral, BID, First dose on [facility] 06/11/22 at 1999, Until Discontinu ed, Routine
Indicatio ns: DVT/PE [Order 2 End] apixaban 2022- Yes 10mg [Order 1 Univ ers (ELIQUIS) 06-05 Start] ity of tablet 10 01:00: 00:59 Name: [place] mg 00 :00 apixaban Medical (ELIQUIS) Branch tablet 10 mg Signed Summary: 10 mg, Oral, BID, 14 doses, First dose on [facility] 06/04/22 at 1999, Last dose on [facility] 06/11/22 at 0800, Routine
Indicatio ns: DVT/PE [Order 1 End] [Order 2 Start] Name: apixaban (ELIQUIS) tablet 5 mg Signed Summary: 5 mg, Oral, BID, First dose on [facility] 06/11/22 at 1999, Until Discontinu ed, Routine
Indicatio ns: DVT/PE [Order 2 End] bisacodyL Yes 10mg 10 mg, Univer s (DULCOLAX) 06-04 Rectal, ity of suppository 15:25: QDAILYPRN, [place] 10 mg 51 Starting Medical on [facility] 06/04/22 at 1025, Until Discontinu ed, Routine, Constipati on bisacodyL Yes 10mg 10 mg, Univer s (DULCOLAX) 06-04 Rectal, ity of suppository 15:25: QDAILYPRN, [place] 10 mg 51 Starting Medical on [facility] 06/04/22 at 1025, Until Discontinu ed, Routine, Constipati on argatroban 2022- No .15ug/k 0.15-2 U nivers 50 mg [...] Until Discontinu ed, Routine, Indigestio n omeprazole 2023-0 Yes 20mg 20 mg, Unive rs (PRILOSEC) [...] 1000 mL for 00 :55 06/03/22 at Sc dical vascular 0925, Branch Intra-op heparin 2022-0 [...] INITIAL INFUSION RATE.&nbsp ; _ &nb sp;FOR [place], [facility], AND [facility] ONLY &nbs p; - aPTT < 35: [...] Oral, ity of OIL EXTRA 14:00: DAILY, [place] HEAVY) oral 00 First dose Me dical liquid 30 on [place] Branch mL 06/02/22 at 0900, Until Discontinu ed, Routine mineral oil Yes 30mL 30 mL, Univ ers (MINERAL 4-20 Oral, ity of OIL EXTRA 14:00: DAILY, [place] HEAVY) oral 00 First dose Me dical [...]
Indicatio ns: DVT/PE [Order 2 End] docusate 2022-0 Yes 100mg 100 mg, Unive rs (COLACE) 4-18 Oral, ity of capsule 100 14:00: DAILY, [place] mg 00 First dose Medical on [facility] 05/31/22 at 0900, Until Discontinu ed, Routine docusate 2022-0 Yes 100mg 100 mg, Unive rs (COLACE) 18 Oral, ity of capsule 100 14:00: DAILY, [place] mg 00 First dose Medical on [facility] 05/31/22 at 0900, Until Discontinu ed, Routine docusate 2022-0 Yes 100mg 100 mg, Unive rs (COLACE) -18 Oral, ity of capsule 100 14:00: DAILY, [place] mg 00 First dose Medical on [facility] 05/31/22 at 0900, Until Discontinu ed, Routine docusate 2022-0 Yes 100mg 100 mg, Unive rs (COLACE) -18 Oral, ity of capsule 100 14:00: DAILY, [place] mg 00 First dose Medical on [facility] 05/31/22 at 0900, Until Discontinu ed, Routine heparin 2022-0 2023- No 0U/h 0-3,050 Univer s 25,000 05-31 [...] INITIAL INFUSION RATE.&nbsp ; _ &nb sp;FOR [facility], AND [facility] ONLY &nbs p; - aPTT < 35: [...] therapeuti c levels are reached.<b r> iopamidol 2022-0 Yes PRN, Univers (ISOVUE-300 4-18 Starting ity of ) injection 02:47: on Mon05/30/[address] Until Discontinu ed, Routine, Intra-op iopamidol 2022-0 Yes PRN, Univers (ISOVUE-300 4-18 Starting ity of ) injection 02:47: on Mon05/30/[address] Until Discontinu ed, Routine, Intra-op iopamidol 2022-0 Yes PRN, Univers (ISOVUE-300 4-18 Starting ity of ) injection 02:47: on Mon05/30/[address] Until Discontinu ed, Routine, Intra-op heparin 2022-0 Yes PRN, Univers 10,000 4-18 Starting ity of units in [place] 01:26: on Mon [place] 1000 mL for 00 05/30/22 at Sc dical vascular 2025, Branch Intra-op heparin 2022-0 [...] all infusion sites combined.< br> alteplase 3-0 Yes .5mg/h 0.5 mg/hr U nivers (CATHFLO -17 (12.5 ity of ACTIVASE) 14:00: mL/hr), IV [place] 20 mg in 00 Infusion, Medica l NaCl 0.9% CONTINUOUS Bran ch (NS) 500 mL , Starting infusion on Mon05/30/22 at 0900
In fuse Via: infusion catheter. Location: Right lower extremity sheath. Total infusion max dose is 4 mg/hr from all infusion sites combined.< br> alteplase 2022-0 2023- No .5mg/h 0.5 mg/hr Univers (CATHFLO 05-30 (12.5 ity of ACTIVASE) 14:00: 05:10 mL/hr), IV [place] 20 mg in 00 :21 Infusion, Medica l NaCl 0.9% CONTINUOUS Bran ch (NS) 500 mL , Starting infusion on Mon05/30/22 at 0900
In fuse Via: infusion catheter. Location: left lower extremity sheath. Total infusion max dose is 4 mg/hr from all infusion sites combined.< br> alteplase 2022-0 2023- No .5mg/h 0.5 mg/hr Univers (CATHFLO 05-3018 (12.5 ity of ACTIVASE) 14:00: 05:10 mL/hr), IV [place] 20 mg in 00 :21 Infusion, Medica l NaCl 0.9% CONTINUOUS Bran ch (NS) 500 mL , Starting infusion on Mon05/30/22 at 0900
In [facility] Via: infusion catheter. Location: Right lower extremity sheath. Total infusion max dose is 4 mg/hr from all infusion sites combined.< br> KCL 2022-0 2023- No 20meq 20 mEq, Univers (KLOR-CON 05-30 Oral, ity of M20) tablet 11:15: 11:12 ONCE, 1 [place] 20 mEq 00 :00 dose, On [facility] 17/23 at 0615, Routine heparin 2022-0 2022- No 0U/h 0-3,050 Univer s 25,000 05-30 [...] INITIAL INFUSION RATE.&nbsp ; _ &nb sp;[facility], AND [facility] ONLY &nbs p; - aPTT [...] 03:31: Push, [place] 10 mg 53 Q4HPRN, [facility] Starting Branch on [place] 05/29/22 at 2231, Until Discontinu ed, Routine, SBP > 160 and HR > 70 labetaloL 2022-0 Yes 10mg 10 mg, Univer s (NORMODYNE) 4-17 Slow IV ity o f injection 03:31: Push, [place] 10 mg 53 Q4HPRN, [facility] Starting Branch on [place] 05/29/22 at 2231, Until Discontinu ed, Routine, SBP > 160 and HR > 70 traMADoL 2022-0 Yes 50mg 50 mg, Univers (ULTRAM) 4-17 Oral, Q6H, ity o f tablet 50 01:45: First dose [place] mg 00 on [facility] 05/29/22 at Branch 2044, Until Discontinu ed, Routine traMADoL 2022-0 Yes 50mg 50 mg, Univers (ULTRAM) 4-17 Oral, Q6H, ity o f tablet 50 01:45: First dose [place] mg 00 on [facility] 05/29/22 at Branch 2044, Until Discontinu ed, Routine traMADoL 2022-0 Yes 50mg 50 mg, Univers (ULTRAM) 4-17 Oral, Q6H, ity o f tablet 50 01:45: First dose [place] mg 00 on [facility] 05/29/22 at Branch 2044, Until Discontinu ed, Routine traMADoL 2022-0 Yes 50mg 50 mg, Univers (ULTRAM) 4-17 Oral, Q6H, ity o f tablet 50 01:45: First dose [place] mg 00 on [facility] 05/29/22 at Branch 2044, Until Discontinu ed, Routine HYDROcodone 2022-0 Yes 1{tbl} 1 tablet, Univers -acetaminop 4-17 Oral, ity of hen (NORCO) 01:37: Q6HPRN, [place] as 10-325 mg 54 Starting Medica l tablet 1 on [facility] tablet 05/29/22 at 2036, Until Discontinu ed, [...] 1245
30 0 units non titratable
acetaminoph 0 Yes 500mg 500 mg, Un mary en 4-16 Oral, Q6H, ity of (TYLENOL) 17:15: First dose [place] tablet 500 00 (after Medical mg last Branch modificati on) on 05/29/22 at 1215, Until Discontinu ed, Routine acetaminoph 2022-0 Yes 500mg 500 mg, Un [...] at 1215, Until Discontinu ed, Routine HYDROcodone 2022-2022- No 1{tbl} 1 tablet, Univers -acetaminop 05-2917 Oral, ity of hen (NORCO 17:03: 01:38 Q6HPRN, [place] 5) 5-325 mg 06 :07 Starting [facility] tablet 1 on [place] Branch tablet 05/29/22 at 1203, Until 05/29/22 at 2038, Routine, Pain (scale 4-6), Pain (scale 7-10) heparin 2022-0 202- No 300U/h 300 Univers 25,000 05-29-17 Units/hr ity of Units/250 15:46: 14:20 (3 mL/hr), [place] mL 48 :43 IV Medical (Premixed Infusion, Branc h Bag) in TITRATE, 0.45 % NS Parameters in Admin. Instr., Starting on 05/29/22 at 1046
30 0 units/hr, non-titrat able
iodixanoL 2022-0 Yes PRN, Univers (VISIPAQUE -16 Starting ity o f 270-150 mL) 13:50: [place] injection 00 05/29/22 at [facility] 0850, Branch Until Discontinu ed, Routine, Intra-op iodixanoL 2022-0 Yes PRN, Univers (VISIPAQUE 4-16 Starting ity o f 270-150 mL) 13:50: [place] injection 00 05/29/22 at [facility] 0850, Branch Until Discontinu ed, Routine, Intra-op iodixanoL 2023-0 Yes PRN, Univers (VISIPAQUE 4-16 Starting ity o f 270-150 mL) 13:50: [place] injection 05/29/22 at [facility] 0850, Branch Until Discontinu ed, Routine, Intra-op iodixanoL 3-0 Yes PRN, Univers (VISIPAQUE 4-16 Starting ity o f 270-150 mL) 13:50: [place] injection 05/29/22 at [facility] 0850, Branch Until Discontinu ed, Routine, Intra-op lidocaine 2022-0 Yes PRN, Univers 1% (PF) 4-16 Starting ity of (XYLOCAINE) 13:00: [place] injection 05/29/22 at [facility] 0800, Branch Until Discontinu ed, Routine, Intra-op lidocaine 2022-0 Yes PRN, Univers 1% (PF) 4-16 Starting ity of (XYLOCAINE) 13:00: [place] injection 05/29/22 at [facility] 0800, Branch Until Discontinu ed, Routine, Intra-op lidocaine 2022-0 Yes PRN, Univers 1% (PF) 4-16 Starting ity of (XYLOCAINE) 13:00: [place] injection 05/29/22 at [facility] 0800, Branch Until Discontinu ed, Routine, Intra-op lidocaine 3-0 Yes PRN, Univers 1% (PF) 4-16 Starting ity of (XYLOCAINE) 13:00: [place] injection 05/29/22 at [facility] 0800, Branch Until Discontinu ed, Routine, Intra-op alteplase 2022-0 2022- No 1mg/h 1 mg/hr Uni vers (CATHFLO 05-29 04-17 (25 ity of ACTIVASE) 12:30: 13:58 mL/hr), IV [place] 20 mg in 00 :35 Infusion, Medica l NaCl 0.9% CONTINUOUS Bran ch (NS) 500 mL , Starting infusion on Mon05/29/22 at 0730
In fuse Via: infusion catheter. [...] No 2mg 2 mg, Slow Univers mg/mL) 05-29-15 IV [place], ity of injection 2 00:15: 23:36 ONCE, 1 [place] mg 00 :00 dose, On Medical Sat [place] 05/28/22 at 1915, Routine HEPARIN 2022- No [...] Rang e, Dosing and Testing: &nbs p;[facility], AND [facility] ONLY &nbs p; - [...] ity of unit/mL, 10 16:23: , Starting [place] mL vial) 36 on [facility] Medical for 05/28/22 at Branch Rebolusing 1123, Until Discontinu ed, Routine
Dosing based on aPPT testing parameters (refer to continuous heparin drip order).
sulfur 2022- No [id number] 5mL 5 mL, Univ ers hexafluorid 05-27 Intravenou i ty of e microsphr 18:30: 18:30 s, ONCE, 1 [place] (LUMASON) 00 :00 dose, On Medica l injection 5 Fri [place] mL 05/27/22 at 1330, Routine
human resources team member approving Restricted medication : HAROON MOYER enoxaparin 2022- No 1mg/kg 90 mg Uni vers (LOVENOX) 05-27 (rounded ity o f injection 14:07: 16:25 [place] 86.5 [place] 90 mg 50 :10 mg = 1 Medical mg/kg Branch ?86.5 kg), [facility], First dose on Mon05/27/22 at [...] No 300mg 300 mg, Un mary (NEURONTIN) 05-27 Oral, TID, i ty of capsule 300 13:00: 04:23 First dose [place] mg 00 :21 on Mon Medical 05/27/22 at Branch 0800, Until Discontinu ed, Routine iopamidol 2022- No [id number] 100mL 100 mL, Univers (ISOVUE 05-27 [id number] Intravenou ity of 370-500 mL) 12:15: 12:15 [...] 05/29/22 at 1203, Routine, Muscle Spasms HYDROcodone 2022-2022- No 1{tbl} 1 tablet, Univers -acetaminop 4-14 04-16 Oral, ity of hen (NORCO 04:44: 17:03 Q6HPRN, [place] 5) 5-325 mg 15 :15 Starting Medi [place] tablet 1 on [facility] Branch tablet 05/26/22 at 2344, Until 05/29/22 at 1203, Routine, Pain (scale 4-6) ondansetron 3-0 Yes 4mg 4 mg, Slow Univers (ZOFRAN 4-14 IV [place], ity of (PF)) 01:30: Q6HPRN, [place] injection 4 58 Starting Medi gordon mg on [facility] Branch 05/26/22 at 2030, Until Discontinu ed, Routine, Nausea and Vomiting (N/V) ondansetron 2023-0 Yes 4mg 4 mg, Slow Univers (ZOFRAN 4-14 IV [place], ity of (PF)) 01:30: Q6HPRN, [place] injection 4 58 Starting Medi gordon mg on [facility] Branch 05/26/22 at 2030, Until Discontinu ed, Routine, Nausea and Vomiting (N/V) ondansetron 3-0 Yes 4mg 4 mg, Slow Univers (ZOFRAN 4-14 IV [place], ity of (PF)) 01:30: Q6HPRN, [place] injection 4 58 Starting Medi gordon mg on [facility] Branch 05/26/22 at 2030, Until Discontinu ed, Routine, Nausea and Vomiting (N/V) ondansetron 3-0 Yes 4mg 4 mg, Slow Univers (ZOFRAN 4-14 IV [place], ity of (PF)) 01:30: Q6HPRN, [place] injection 4 58 Starting Medi gordon mg on [facility] Branch 05/26/22 at 2030, Until Discontinu ed, Routine, Nausea and Vomiting (N/V) morpHINE (2 2022- No 4mg 4 mg, Slow Univers mg/mL) 05-27 IV [place], ity of injection 4 01:30: 01:29 Q4HPRN, [place] mg 55 :55 Starting Medical on [place] Branch 05/26/22 at 2030, Until 05/27/22 at 2029, Routine, Pain (scale 7-10) methocarbam 2022-0 2022- No 500mg 500 mg, U nivers oL 05-27 Oral, ity of (ROBAXIN) 00:00: 23:10 ONCE, 1 [place] tablet 500 00 :00 dose, On Medic al mg [place] Branch 05/26/22 at 1900, Routine traMADoL 2022- No 50mg 50 mg, Univer s (ULTRAM) 05-26 Oral, ity of tablet 50 23:45: 23:10 ONCE, 1 [place] mg 00 :00 dose, On [facility] Branch 05/26/22 at 1845, Routine gabapentin 2022- No 300mg 300 mg, Un mary (NEURONTIN) 05-26 Oral, ity of capsule 300 23:00: 23:10 ONCE, 1 [place] mg 00 :00 dose, On [facility] Branch 05/26/22 at 1800, MICHELLE methylpredn No 125mg 125 mg, U nivers isolone sod 05-26 Slow IV ity of succ 22:15: 21:28 [place], [place] (SOLU-MEDRO 00 :00 ONCE, 1 Medic al L) dose, On Branch injection [place] 125 mg 05/26/22 at 1715, MICHELLE furosemide 2022- No 40mg 40 mg, IV U nivers (LASIX) 05-26 [place], ity of injection 21:15: 21:19 ONCE, [place] 40 mg 00 :00 dose, On [facility] Branch 05/26/22 at 1615, MICHELLE ketorolac 2022- No 30mg 30 mg, Unive rs (TORADOL) 05-23 Intramuscu ity of injection 23:00: 22:35 lar, ONCE, [place] 30 mg 00 :00 1 dose, On [facility] Branch 05/23/22 at 1800, Routine diazePAM 2022- No 2.5mg 2.5 mg, Univ ers (VALIUM) 05-23 Oral, ity of tablet 2.5 22:45: 23:09 ONCE, 1 [place] mg 00 :00 dose, On [facility] Branch 05/23/22 at 1745, MICHELLE HYDROcodone 2022- No 1{tbl} 1 tablet, Univers -acetaminop 4-10 04-10 Oral, ONCE i ty of hen (NORCO) 11:45: 11:00 NOW, 1 [place] 10-325 mg 00 :00 dose, On Medica l tablet 1 [facility] tablet 05/23/22 at 0645, MICHELLE gabapentin 3-0 202- No 600mg 600 mg, Un mary (NEURONTIN) 05-23 Oral, ity of capsule 600 09:00: 09:09 ONCE, 1 [place] mg 00 :00 dose, On Medical [facility] Branch 05/23/22 at 0400, MICHELLE dexamethaso 2022-0 2022- No 10mg 10 mg, Uni vers ne sod phos 05-23 Intramuscu i ty of PF 09:00: 09:07 lar, ONCE, [place] injection 00 :00 1 dose, On Medi gordon 10 mg [facility] 05/23/22 at 0400, 1 mL gabapentin 2023-0 Yes [id number] 300mg Take 1 Univers 300 mg 4-10 capsule by ity of capsule 00:00: mouth in [address] and 1 capsule at noon and 1 capsule in the evening. gabapentin 2023-0 Yes [id number] 300mg Take 1 Univers 300 mg 4-10 capsule by ity of capsule 00:00: mouth in [place] [address] the [facility] and 1 capsule at noon and 1 capsule in the evening. gabapentin 2023-0 Yes [id number] 300mg Take 1 Univers 300 mg 4-10 capsule by ity of capsule 00:00: mouth in [place] [address] the [facility] and 1 capsule at noon and 1 capsule in the evening. ketorolac 2023-0 Yes [id number] 10mg Take 1 U nivers 10 mg 4-10 tablet by ity of tablet 00:00: mouth [place] [address] every 6 Medical (six) Branch hours as needed for Pain (scale 7-10). gabapentin 2023-0 Yes [id number] 300mg Take 1 Univers 300 mg 4-10 capsule by ity of capsule 00:00: mouth in [place] [address] the [facility] and 1 capsule at noon and 1 capsule in the evening. ketorolac 2023-0 Yes [id number] 10mg Take 1 U nivers 10 mg 4-10 tablet by ity of tablet 00:00: mouth [place] 00 every 6 Medical (six) Branch hours as needed for Pain (scale 7-10). gabapentin 2023-0 Yes [id number] 300mg Take 1 Univers 300 mg 4-10 capsule by ity of capsule 00:00: mouth in [place] 00 the Medical morning Branch and 1 capsule at noon and 1 capsule in the evening. ketorolac 2023-0 Yes [id number] 10mg Take 1 U nivers 10 mg 4-10 tablet by ity of tablet 00:00: mouth [place] 00 every 6 Medical (six) Branch hours as needed for Pain (scale 7-10). gabapentin 2023-0 Yes [id number] 300mg Take 1 [facility] 300 mg 4-10 capsule by ity of capsule 00:00: mouth in [place] 00 the Medical morning Branch and 1 capsule at noon and 1 capsule in the evening. ketorolac 2023-0 Yes [id number] 10mg Take 1 U nivers 10 mg 4-10 tablet by ity of tablet 00:00: mouth [place] 00 every 6 Medical (six) Branch hours as needed for Pain (scale 7-10). gabapentin 2023-0 Yes [id number] 300mg Take 1 Univers 300 mg 4-10 capsule by ity of capsule 00:00: mouth in [place] 00 the Medical morning Branch and 1 capsule at noon and 1 capsule in the evening. ketorolac 2023-0 Yes [id number] 10mg Take 1 U nivers 10 mg 4-10 tablet by ity of tablet 00:00: mouth [place] 00 every 6 Medical (six) Branch hours as needed for Pain (scale 7-10). gabapentin 2023-0 Yes [id number] 300mg Take 1 [facility] 300 mg 4-10 capsule by ity of capsule 00:00: mouth in [place] 00 the Medical morning Branch and 1 capsule at noon and 1 capsule in the evening. ketorolac 2023-0 Yes [id number] 10mg Take 1 U nivers 10 mg 4-10 tablet by ity of tablet 00:00: mouth [place] 00 every 6 Medical (six) Branch hours as needed for Pain (scale 7-10). gabapentin 2023-0 2023- No [id number] 300mg Take 1 Univers 300 mg 4-10 04-25 capsule by ity of capsule 00:00: 00:00 mouth in [place] 00 :00 the Medical morning Branch and 1 capsule at noon and 1 capsule in the evening. methocarbam 0 2022- No [id number] 500mg Take 1 Univers oL 500 mg 4-10 -25 tablet by ity of tablet 00:00: 00:00 mouth 4 [place] 00 :00 (four) Medical times Branch daily for 7 days. ketorolac 2022-0 2022- No [id number] 10mg Take 1 Univers 10 mg 4-10 -25 tablet by ity of tablet 00:00: 00:00 mouth [place] 00 :00 every 6 Medical (six) Branch hours as needed for Pain (scale 7-10). methocarbam 0 2022- Yes [id number] 500mg Take 1 Univers oL 500 mg 4-10 -18 tablet by ity of tablet 00:00: 04:59 mouth 4 [place] 00 :00 (four) Medical times Branch daily for 7 days. methocarbam 2022- Yes [id number] 500mg Take 1 Univers oL 500 mg 4-10 -18 tablet by ity of tablet 00:00: 04:59 mouth 4 [place] 00 :00 (four) Medical times Branch daily for 7 days. methocarbam 2022-0 2022- Yes [id number] 500mg Take 1 Univers oL 500 mg 4-10 -18 tablet by ity of tablet 00:00: 04:59 mouth 4 [place] 00 :00 (four) Medical times Branch daily for 7 days. methocarbam 2022-2022- No [id number] 500mg Take 1 Univers oL 500 mg 4-10 -18 tablet by ity of tablet 00:00: 04:59 mouth 4 [place] 00 :00 (four) Medical times Branch daily for 7 days. methocarbam 2022- No [id number] 500mg Take 1 Univers oL 500 mg 4-10 04-18 tablet by ity of tablet 00:00: 04:59 mouth 4 [place] 00 :00 ([facility]) Medical times Branch daily for 7 days. mirtazapine 2022-0 Yes [id number] 45mg Take 1 Univers 45 mg 2-23 tablet by ity of tablet 00:00: mouth at [place] 00 bedtime. Medical Branch mirtazapine 2022-0 Yes [id number] 45mg Take 1 Univers 45 mg 2-23 tablet by ity of tablet 00:00: mouth at [place] [address] bedtime. Medical Branch mirtazapine 3-0 Yes [id number] 45mg Take 1 Univers 45 mg 2-23 tablet by ity of tablet 00:00: mouth at [place] [address] bedtime. Medical Branch mirtazapine 3-0 Yes [id number] 45mg Take 1 Univers 45 mg 2-23 tablet by ity of tablet 00:00: mouth at [place] [address] bedtime. Medical Branch mirtazapine 3-0 Yes [id number] 45mg Take 1 Univers 45 mg 2-23 tablet by ity of tablet 00:00: mouth at [place] [address] bedtime. Medical Branch mirtazapine 2022-0 Yes [id number] 45mg Take 1 Univers 45 mg 2-23 tablet by ity of tablet 00:00: mouth at [place] [address] bedtime. Medical Branch mirtazapine 2022-0 Yes [id number] 45mg Take 1 Univers 45 mg 2-23 tablet by ity of tablet 00:00: mouth at [place] [address] bedtime. Medical Branch mirtazapine 2022-0 Yes [id number] 45mg Take 1 Univers 45 mg 2-23 tablet by ity of tablet 00:00: mouth at [place] [address] bedtime. Medical Branch mirtazapine 2022-0 Yes [id number] 45mg Take 1 Univers 45 mg 2-23 tablet by ity of tablet 00:00: mouth at [place] [address] bedtime. Medical Branch mirtazapine 2022-0 Yes [id number] 45mg Take 1 Univers 45 mg 2-23 tablet by ity of tablet 00:00: mouth at [place] [address] bedtime. Medical Branch mirtazapine 3-0 Yes [id number] 45mg Take 1 Univers 45 mg 2-23 tablet by ity of tablet 00:00: mouth at [place] [address] bedtime. Medical Branch mirtazapine 3-0 Yes [id number] 45mg Take 1 Univers 45 mg 2-23 tablet by ity of tablet 00:00: mouth at [place] [address] bedtime. Medical Branch mirtazapine 3-0 Yes [id number] 45mg Take 1 Univers 45 mg 2-23 tablet by ity of tablet 00:00: mouth at [place] [address] bedtime. Medical Branch mirtazapine 3-0 Yes [id number] 45mg Take 1 Univers 45 mg 2-23 tablet by ity of tablet 00:00: mouth at [place] [address] bedtime. Medical Branch mirtazapine 2022-0 Yes [id number] 45mg Take 1 Univers 45 mg 2-23 tablet by ity of tablet 00:00: mouth at [place] [address] bedtime. Medical Branch mirtazapine 2022-0 Yes [id number] 45mg Take 1 Univers 45 mg 2-23 tablet by ity of tablet 00:00: mouth at [place] [address] bedtime. Medical Branch mirtazapine 2022-0 Yes [id number] 45mg Take 1 Univers 45 mg 2-23 tablet by ity of tablet 00:00: mouth at [place] [address] bedtime. Medical Branch mirtazapine 2022-0 Yes [id number] 45mg Take 1 Univers 45 mg 2-23 tablet by ity of tablet 00:00: mouth at [place] [address] bedtime. Medical Branch mirtazapine 2022-0 Yes [id number] 45mg Take 1 Univers 45 mg 2-23 tablet by ity of tablet 00:00: mouth at [place] [address] bedtime. Medical Branch mirtazapine 2022-0 Yes [id number] 45mg Take 1 [facility] 45 mg 2-23 tablet by ity of tablet 00:00: mouth at [place] [address] bedtime. Medical Branch mirtazapine 2022-0 Yes [id number] 45mg Take 1 [facility] 45 mg 2-23 tablet by ity of tablet 00:00: mouth at [place] [address] bedtime. Medical Branch mirtazapine 2022-0 Yes [id number] 45mg Take 1 [facility] 45 mg 2-23 tablet by ity of tablet 00:00: mouth at [place] [address] bedtime. Medical Branch mirtazapine 2022-0 Yes [id number] 45mg Take 1 [facility] 45 mg 2-23 tablet by ity of tablet 00:00: mouth at [place] [address] bedtime. Medical Branch mirtazapine 2022-0 Yes [id number] 45mg Take 1 Univers 45 mg 2-23 tablet by ity of tablet 00:00: mouth at [place] [address] bedtime. Medical Branch mirtazapine 2022-0 Yes [id number] 45mg Take 1 Univers 45 mg 2-23 tablet by ity of tablet 00:00: mouth at [place] [address] bedtime. Medical Branch mirtazapine 2022-0 2023- No [id number] 45mg Take 1 Univers 45 mg 2-23 04-25 tablet by ity of tablet 00:00: 00:00 mouth at [place] 00 :00 bedtime. Medical Branch mirtazapine 2021- Yes [id number] 30mg Take 1 Univers 30 mg 2-21 tablet by ity of tablet 00:00: mouth at [place] [address] bedtime. Medical Branch mirtazapine 2021- Yes [id number] 30mg Take 1 Univers 30 mg 2-21 tablet by ity of tablet 00:00: mouth at [place] [address] bedtime. Medical Branch mirtazapine 2021- Yes [id number] 30mg Take 1 Univers 30 mg 2-21 tablet by ity of tablet 00:00: mouth at [place] [address] bedtime. Medical Branch mirtazapine 2021- Yes [id number] 30mg Take 1 Univers 30 mg 2-21 tablet by ity of tablet 00:00: mouth at [place] [address] bedtime. Medical Branch mirtazapine 2021- Yes [id number] 30mg Take 1 Univers 30 mg 2-21 tablet by ity of tablet 00:00: mouth at [place] [address] bedtime. Medical Branch mirtazapine 2021- Yes [id number] 30mg Take 1 Univers 30 mg 2-21 tablet by ity of tablet 00:00: mouth at [place] [address] bedtime. Medical Branch mirtazapine 2021- Yes [id number] 30mg Take 1 Univers 30 mg 2-21 tablet by ity of tablet 00:00: mouth at [place] [address] bedtime. Medical Branch mirtazapine 2021- Yes [id number] 30mg Take 1 Univers 30 mg 2-21 tablet by ity of tablet 00:00: mouth at [place] [address] bedtime. Medical Branch mirtazapine 2021- Yes [id number] 30mg Take 1 Univers 30 mg 2-21 tablet by ity of tablet 00:00: mouth at [place] [address] bedtime. Medical Branch mirtazapine 2021-2022- No [id number] 30mg Take 1 Univers 30 mg 2-21 02-23 tablet by ity of tablet 00:00: 00:00 mouth at [place] 00 :00 bedtime. [facility] Branch mirtazapine 2021-2022- No [id number] 30mg Take 1 Univers 30 mg 2-21 02-23 tablet by ity of tablet 00:00: 00:00 mouth at [place] 00 :00 bedtime. Medical Branch traMADoL 50 2021-02 Yes 50mg Take 1 Univ ers mg tablet 2-08 tablet by ity o f 00:00: mouth in [place] 00 the Medical morning Branch and 1 tablet at noon and 1 tablet in the evening. traMADoL 50 2021-02 Yes 50mg Take 1 Univ ers mg tablet 2-08 tablet by ity o f 00:00: mouth in [place] 00 the Medical morning Branch and 1 tablet at noon and 1 tablet in the evening. traMADoL 50 2021-02 Yes 50mg Take 1 Univ ers mg tablet 2-08 tablet by ity o f 00:00: mouth in [place] 00 the Medical morning Branch and 1 tablet at noon and 1 tablet in the evening. traMADoL 50 2021-02 Yes 50mg Take 1 Univ ers mg tablet 2-08 tablet by ity o f 00:00: mouth in [place] 00 the Medical morning Branch and 1 tablet at noon and 1 tablet in the evening. traMADoL 50 2021-02 Yes 50mg Take 1 Univ ers mg tablet 2-08 tablet by ity o f 00:00: mouth in [place] 00 the Medical morning Branch and 1 tablet at noon and 1 tablet in the evening. traMADoL 50 2021-02 Yes 50mg Take 1 Univ ers mg tablet 2-08 tablet by ity o f 00:00: mouth in [place] 00 the Medical morning Branch and 1 tablet at noon and 1 tablet in the evening. traMADoL 50 2021-02 Yes 50mg Take 1 Univ ers mg tablet 2-08 tablet by ity o f 00:00: mouth in [place] 00 the Medical morning Branch and 1 tablet at noon and 1 tablet in the evening. traMADoL 50 2021-02 Yes 50mg Take 1 Univ ers mg tablet 2-08 tablet by ity o f 00:00: mouth in [place] 00 the Medical morning Branch and 1 tablet at noon and 1 tablet in the evening. traMADoL 50 2021-02 Yes 50mg Take 1 Univ ers mg tablet 2-08 tablet by ity o f 00:00: mouth in [place] [address] the Medical morning Branch and 1 tablet at noon and 1 tablet in the evening. traMADoL 50 2021-02 Yes 50mg Take 1 Univ ers mg tablet 2-08 tablet by ity o f 00:00: mouth in [place] 00 the Medical morning Branch and 1 tablet at noon and 1 tablet in the evening. traMADoL 50 2021-02 Yes 50mg Take 1 Univ ers mg tablet 2-08 tablet by ity o f 00:00: mouth in [place] 00 the Medical morning Branch and 1 tablet at noon and 1 tablet in the evening. traMADoL 50 2021-02 Yes 50mg Take 1 Univ ers mg tablet 2-08 tablet by ity o f 00:00: mouth in [place] 00 the Medical morning Branch and 1 tablet at noon and 1 tablet in the evening. traMADoL 50 2021-02 Yes 50mg Take 1 Univ ers mg tablet 2-08 tablet by ity o f 00:00: mouth in [place] 00 the Medical morning Branch and 1 tablet at noon and 1 tablet in the evening. traMADoL 50 2021-02 Yes 50mg Take 1 Univ ers mg tablet 2-08 tablet by ity o f 00:00: mouth in [place] [address] the Medical morning Branch and 1 tablet at noon and 1 tablet in the evening. traMADoL 50 2021-02 Yes 50mg Take 1 Univ ers mg tablet 2-08 tablet by ity o f 00:00: mouth in [place] [address] the Medical morning Branch and 1 tablet at noon and 1 tablet in the evening. traMADoL 50 2021-02 Yes 50mg Take 1 Univ ers mg tablet 2-08 tablet by ity o f 00:00: mouth in [place] 00 the Medical morning Branch and 1 tablet at noon and 1 tablet in the evening. traMADoL 50 2021-02 Yes 50mg Take 1 Univ ers mg tablet 2-08 tablet by ity o f 00:00: mouth in [place] 00 the Medical morning Branch and 1 tablet at noon and 1 tablet in the evening. traMADoL 50 2021-02 Yes 50mg Take 1 Univ ers mg tablet 2-08 tablet by ity o f 00:00: mouth in [place] 00 the Medical morning Branch and 1 tablet at noon and 1 tablet in the evening. traMADoL 50 2021-02 Yes 50mg Take 50 mg Univers mg tablet 2-08 by mouth ity of 00:00: in the [place] morning Medical and 50 mg Branch at noon and 50 mg in the evening. traMADoL 50 2021-02 Yes 50mg Take 50 mg Univers mg tablet 2-08 by mouth ity of 00:00: in the [place] morning Medical and 50 mg Branch at noon and 50 mg in the evening. traMADoL 50 2021-02 Yes 50mg Take 50 mg Univers mg tablet 2-08 by mouth ity of 00:00: in the [place] 00 morning Medical and 50 mg Branch at noon and 50 mg in the evening. traMADoL 50 2021-02 Yes 50mg Take 50 mg Univers mg tablet 2-08 by mouth ity of 00:00: in the [place] morning Medical and 50 mg Branch at noon and 50 mg in the evening. traMADoL 50 2021-02 Yes 50mg Take 50 mg Univers mg tablet 2-08 by mouth ity of 00:00: in the [place] morning Medical and 50 mg Branch at noon and 50 mg in the evening. traMADoL 50 2021-02 Yes 50mg Take 50 mg Univers mg tablet 2-08 by mouth ity of 00:00: in the [place] morning Medical and 50 mg Branch at noon and 50 mg in the evening. traMADoL 50 2021-02 Yes 50mg Take 50 mg Univers mg tablet 2-08 by mouth ity of 00:00: in the [place] morning Medical and 50 mg Branch at noon and 50 mg in the evening. traMADoL 50 2021-02 Yes 50mg Take 50 mg Univers mg tablet 2-08 by mouth ity of 00:00: in the [place] morning Medical and 50 mg Branch at noon and 50 mg in the evening. traMADoL 50 2021- Yes 50mg Take 50 mg Univers mg tablet 2-08 by mouth ity of 00:00: in the [place] morning Medical and 50 mg Branch at noon and 50 mg in the evening. traMADoL 50 2021-02 Yes 50mg Take 50 mg Univers mg tablet 2-08 by mouth ity of 00:00: in the [place] morning Medical and 50 mg Branch at noon and 50 mg in the evening. traMADoL 50 2021-02 Yes 50mg Take 50 mg Univers mg tablet 2-08 by mouth ity of 00:00: in the [place] morning Medical and 50 mg Branch at noon and 50 mg in the evening. traMADoL 50 2021- Yes 50mg Take 50 mg Univers mg tablet 2-08 by mouth ity of 00:00: in the [place] morning Medical and 50 mg Branch at noon and 50 mg in the evening. traMADoL 50 2021- Yes 50mg Take 50 mg Univers mg tablet 2-08 by mouth ity of 00:00: in the [place] 00 morning Medical and 50 mg Branch at noon and 50 mg in the evening. traMADoL 50 2021-02 Yes 50mg Take 50 mg Univers mg tablet 2-08 by mouth ity of 00:00: in the [place] 00 morning Medical and 50 mg Branch at noon and 50 mg in the evening. traMADoL 50 2021-02 Yes 50mg Take 1 Univ ers mg tablet 2-08 tablet by ity o f 00:00: mouth in [place] 00 the Medical morning Branch and 1 tablet at noon and 1 tablet in the evening. traMADoL 50 2021-02 Yes 50mg Take 1 Univ ers mg tablet 2-08 tablet by ity o f 00:00: mouth in [place] 00 the Medical morning Branch and 1 tablet at noon and 1 tablet in the evening. traMADoL 50 2021-02 Yes 50mg Take 1 Univ ers mg tablet 2-08 tablet by ity o f 00:00: mouth in [place] 00 the Medical morning Branch and 1 tablet at noon and 1 tablet in the evening. traMADoL 50 2021-02 No 50mg Take 1 Uni vers mg tablet 2-08 04-25 tablet by ity of 00:00: 00:00 mouth in [place] 00 :00 the Medical morning Branch and 1 tablet at noon and 1 tablet in the evening. mirtazapine 2021-02 Yes [id number] 15mg Take 1 [facility] 15 mg 1-21 tablet by ity of tablet 00:00: mouth at [place] [address] bedtime. Medical Branch mirtazapine 2021-02 Yes [id number] 15mg Take 1 Univers 15 mg 1-21 tablet by ity of tablet 00:00: mouth at [place] [address] bedtime. [facility] Branch mirtazapine 2021-02 Yes [id number] 15mg Take 1 Univers 15 mg 1-21 tablet by ity of tablet 00:00: mouth at [place] 00 bedtime. [facility] Branch mirtazapine 2021-02- No [id number] 15mg Take 1 Univers 15 mg 1-21 12-21 tablet by ity of tablet 00:00: 00:00 mouth at [place] 00 :00 bedtime. [facility] Branch mirtazapine 2021-02- No [id number] 15mg Take 1 Univers 15 mg 1-21 12-21 tablet by ity of tablet 00:00: 00:00 mouth at [place] 00 :00 bedtime. Medical Branch vortioxetin 2021-02 Yes [id number] 5mg Take 1 Univers e 0-20 tablet by ity of (TRINTELLIX 00:00: mouth in [place] 5 mg Tab 00 the Medical morning. Branch vortioxetin 2021-02 Yes [id number] 5mg Take 1 Univers e 0-20 tablet by ity of (TRINTELLIX 00:00: mouth in [place] ) 5 mg Tab 00 the Medical morning. Branch vortioxetin 2021-02 Yes [id number] 5mg Take 1 Univers e 0-20 tablet by ity of (TRINTELLIX 00:00: mouth in [place] ) 5 mg Tab 00 the Medical morning. Branch vortioxetin 2021-02 Yes [id number] 5mg Take 1 Univers e 0-20 tablet by ity of (TRINTELLIX 00:00: mouth in [place] ) 5 mg Tab 00 the Medical morning. Branch vortioxetin 2021-02 Yes [id number] 5mg Take 1 Univers e 0-20 tablet by ity of (TRINTELLIX 00:00: mouth in [place] ) 5 mg Tab 00 the Medical morning. Branch vortioxetin 2021-02 Yes [id number] 5mg Take 1 Univers e 0-20 tablet by ity of (TRINTELLIX 00:00: mouth in [place] ) 5 mg Tab 00 the Medical morning. Branch vortioxetin 2021-02- No [id number] 5mg Take 1 Univers e 0-20 11-21 tablet by ity of (TRINTELLIX 00:00: 00:00 mouth in [place] ) 5 mg Tab 00 :00 the Medical morning. Branch vortioxetin 2021-02- No [id number] 5mg Take 1 Univers e 0-20 11-21 tablet by ity of (TRINTELLIX 00:00: 00:00 mouth in [place] ) 5 mg Tab 00 :00 the Medical morning. Branch DULoxetine Yes [id number] 20mg Take 1 Univers 20 mg 9-20 capsule by ity of capsule 00:00: mouth in [place] 00 the Medical morning. Branch DULoxetine 2-0 Yes [id number] 20mg Take 1 Univers 20 mg 9-20 capsule by ity of capsule 00:00: mouth in [place] 00 the Medical morning. Branch DULoxetine 2-0 Yes [id number] 20mg Take 1 Univers 20 mg 9-20 capsule by ity of capsule 00:00: mouth in [place] 00 the Medical morning. Branch DULoxetine 2-0 Yes [id number] 20mg Take 1 [facility] 20 mg 9-20 capsule by ity of capsule 00:00: mouth in [place] 00 the Medical morning. Branch DULoxetine 2-0 Yes [id number] 20mg Take 1 Univers 20 mg 9-20 capsule by ity of capsule 00:00: mouth in [place] 00 the Medical morning. Branch DULoxetine 2021-0 2- No [id number] 20mg Take 1 Univers 20 mg 9-20 10-20 capsule by ity of capsule 00:00: 00:00 mouth in [place] 00 :00 the Medical morning. Branch DULoxetine 2021-0 2- No [id number] 20mg Take 1 Univers 20 mg 9-20 10-20 capsule by ity of capsule 00:00: 00:00 mouth in [place] 00 :00 the Medical morning. Branch gabapentin 2-0 Yes [id number] 300mg Take 1 Univers 300 mg 8-23 capsule by ity of capsule 00:00: mouth at [place] [address] bedtime. Medical Branch gabapentin 2-0 Yes [id number] 300mg Take 1 Univers 300 mg 8-23 capsule by ity of capsule 00:00: mouth at [place] [address] bedtime. Medical Branch gabapentin 2022-0 Yes [id number] 300mg Take 1 Univers 300 mg 8-23 capsule by ity of capsule 00:00: mouth at [place] [address] bedtime. Medical Branch gabapentin 2022-0 2022- No [id number] 300mg Take 1 Univers 300 mg 8-23 09-20 capsule by ity of capsule 00:00: 00:00 mouth at [place] 00 :00 bedtime. Medical Branch gabapentin 2022-0 2022- No [id number] 300mg Take 1 Univers 300 mg 8-23 09-20 capsule by ity of capsule 00:00: 00:00 mouth at [place] 00 :00 bedtime. Medical Branch mirtazapine 2022-0 2022- No 30mg Take 30 mg Univers 30 mg 8-08 08-23 by mouth ity of tablet 00:00: 00:00 in the [place] 00 :00 morning. Medical Branch mirtazapine 2021-0 2021- No 30mg Take 30 mg Univers 30 mg 09-20 by mouth ity of tablet 00:00: 00:00 in the [place] 00 :00 morning. Medical Branch sertraline 2020-0 [...] 0.9% 6-09 (Same as: l 18:36: BD [place] 00 Posiflush) Saline No Notes: Memoria Flush 0.9% 6-09 (Same as: l 18:36: BD [place] 00 Posiflush) Saline No Notes: Memoria Flush 0.9% 6-09 (Same as: l 18:36: BD [place] 00 Posiflush) Saline No Notes: Memoria Flush 0.9% 6-09 (Same as: l 18:36: BD [place] 00 Posiflush) Saline No Notes: Memoria Flush 0.9% 6-09 (Same as: l 18:36: BD [place] 00 Posiflush) Saline No Notes: Memoria Flush 0.9% 6-09 (Same as: l 18:36: BD [place] 00 Posiflush) Saline No Notes: Memoria Flush 0.9% 6-09 (Same as: l 18:36: BD [place] 00 Posiflush) Saline No Notes: Memoria Flush 0.9% 6-09 (Same as: l 18:36: BD [place] 00 Posiflush) Saline No Notes: Memoria Flush 0.9% 6-09 (Same as: l 18:36: BD [place] 00 Posiflush) Saline No Notes: Memoria Flush 0.9% 6-09 (Same as: l 18:36: BD [place] 00 Posiflush) Saline No Notes: Memoria Flush 0.9% 6-09 (Same as: l 18:36: BD [place] 00 Posiflush) Saline No Notes: Memoria Flush 0.9% 6-09 (Same as: l 18:36: BD [place] 00 Posiflush) Saline No Notes: Memoria Flush 0.9% 6-09 (Same as: l 18:36: BD [place] 00 Posiflush) Saline No Notes: Memoria Flush 0.9% 6-09 (Same as: l 18:36: BD [place] 00 Posiflush) Saline No Notes: Memoria Flush 0.9% 6-09 (Same as: l 18:36: BD [place] 00 Posiflush) Saline No Notes: Memoria Flush 0.9% 6-09 (Same as: l 18:36: BD [place] 00 Posiflush) Saline No Notes: Memoria Flush 0.9% 6-09 (Same as: l 18:36: BD [place] 00 Posiflush) Saline No Notes: Memoria Flush 0.9% 6-09 (Same as: l 18:36: BD [place] 00 Posiflush) Saline No Notes: Memoria Flush 0.9% 6-09 (Same as: l 18:36: BD [place] 00 Posiflush) Saline No Notes: Memoria Flush 0.9% 6-09 (Same as: l 18:36: BD [place] 00 Posiflush) Saline No Notes: Memoria Flush 0.9% 6- (Same as: l 18:36: BD [place] 00 Posiflush) Saline No Notes: Memoria Flush 0.9% 6-09 (Same as: l 18:36: BD [place] 00 Posiflush) Vital Signs Vital Name Observation Time Observation Value Comments Source HEIGHT 2022-06-21 11:16:00 167.6 cm WEIGHT 2022-06-21 11:16:00 87.181 kg HEIGHT 2022-06-21 11:16:00 167.6 cm WEIGHT 2022-06-21 11:16:00 87.181 kg HEIGHT 2022-06-21 11:16:00 167.6 cm WEIGHT 2022-06-21 11:16:00 87.181 kg Systolic blood 2022-06-16 16:05:00 112 mm[Hg] Univer [facility]ity of [facility] Diastolic blood 2022-06-16 16:05:00 72 mm[Hg] Unive rsity of [facility] Heart rate 2022-06-16 16:05:00 90 /min [facility] Body temperature 2022-06-16 16:05:00 36.72 Nita [facility] 2022-06-16 16:05:00 16 /min [facility] Body height 2022-06-16 16:05:00 167.6 cm [facility] Body weight 2022-06-16 16:05:00 91.173 kg [facility] BMI 2022-06-16 16:05:00 32.44 kg/m2 [facility] Oxygen saturation in 2022-06-16 16:05:00 100 /min [facility] Arterial blood by [facility] Pulse oximetry Branch Systolic blood 2022-06-07 18:25:00 140 mm[Hg] Univer sity of [facility] Diastolic blood 2022-06-07 18:25:00 74 mm[Hg] Unive rsity of [facility] Heart rate 2022-06-07 18:25:00 70 /min [facility] Body temperature 2022-06-07 18:25:00 36.44 Nita [facility] ers[facility] [place] [facility] Respiratory rate 2022-06-07 18:25:00 20 /min Univ ersity of [place] [facility] Oxygen saturation in 2022-06-07 18:25:00 100 /min University of Arterial blood by [facility] Pulse oximetry Branch Body weight 2022-05-27 08:00:00 86.456 kg [facility] [place] [facility] BMI 2022-05-27 08:00:00 30.76 kg/m2 [facility] [place] [facility] Body height 2022-05-27 02:20:00 167.6 cm [facility] [place] [facility] Systolic blood 2022-06-03 10:48:00 136 mm[Hg] Univer sity of pressure [place] [facility] Diastolic blood 2022-06-03 10:48:00 67 mm[Hg] Unive rsity of pressure [place] [facility] Heart rate 2022-06-03 10:48:00 80 /min [facility] [place] [facility] Body temperature 2022-06-03 10:48:00 36.28 Nita [facility] ers[facility] [place] [facility] Respiratory rate 2022-06-03 10:48:00 18 /min Univ ersity [facility] [place] [facility] Oxygen saturation in 2022-06-03 10:48:00 97 /min University of Arterial blood by [facility] Pulse oximetry Branch Body weight 2022-05-27 08:00:00 86.456 kg [facility] [place] [facility] BMI 2022-05-27 08:00:00 30.76 kg/m2 [facility] [place] [facility] Body height 2022-05-27 02:20:00 167.6 cm [facility] [place] [facility] Systolic blood 2022-05-31 01:00:00 116 mm[Hg] Univer sity of pressure [place] [facility] Diastolic blood 2022-05-31 01:00:00 68 mm[Hg] Unive rsity of pressure [place] [facility] Heart rate 2022-05-31 01:00:00 79 /min [facility] [place] [facility] Body temperature 2022-05-31 01:00:00 37.78 Nita Univ ersity [facility] [place] [facility] Respiratory rate 2022-05-31 01:00:00 14 /min Univ ersity [facility] [place] [facility] Oxygen saturation in 2022-05-31 01:00:00 96 /min University of Arterial blood by [facility] Pulse oximetry Branch Body weight 2022-05-27 08:00:00 86.456 kg [facility] [place] [facility] BMI 2022-05-27 08:00:00 30.76 kg/m2 [facility] [place] [facility] Body height 2022-05-27 02:20:00 167.6 cm [facility] [place] [facility] Systolic blood 2022-05-29 15:15:00 138 mm[Hg] Univer sity of pressure [place] [facility] Diastolic blood 2022-05-29 15:15:00 81 mm[Hg] Unive rsity of pressure [place] [facility] Heart rate 2022-05-29 15:15:00 62 /min [facility] [place] [facility] Body temperature 2022-05-29 15:15:00 36.39 Nita [facility] [place] [facility] Respiratory rate 2022-05-29 15:15:00 18 /min Univ ersity [facility] [place] [facility] Oxygen saturation in 2022-05-29 15:15:00 100 /min University of Arterial blood by [facility] Pulse oximetry Branch Body weight 2022-05-27 08:00:00 86.456 kg [facility] [place] [facility] BMI 2022-05-27 08:00:00 30.76 kg/m2 [facility] [place] [facility] Body height 2022-05-27 02:20:00 167.6 cm [facility] [place] [facility] Systolic blood 2022-05-23 21:38:00 137 mm[Hg] Univer sity of pressure [place] [facility] Diastolic blood 2022-05-23 21:38:00 89 mm[Hg] Unive rsity of pressure [place] [facility] Heart rate 2022-05-23 21:38:00 100 /min [facility] [place] [facility] Body temperature 2022-05-23 21:38:00 36.67 Nita [facility] [place] [facility] Respiratory rate 2022-05-23 21:38:00 20 /min Univ ersity [facility] [place] [facility] Body weight 2022-05-23 21:38:00 81.647 kg [facility] [place] [facility] BMI 2022-05-23 21:38:00 29.05 kg/m2 [facility] [place] [facility] Oxygen saturation in 2022-05-23 21:38:00 100 /min University of Arterial blood by [facility] Pulse oximetry Branch Systolic blood 2022-05-23 10:00:00 144 mm[Hg] Univer sity of pressure [place] [facility] Diastolic blood 2022-05-23 10:00:00 79 mm[Hg] Unive rsity of pressure [place] [facility] Heart rate 2022-05-23 10:00:00 77 /min [facility] [place] [facility] Respiratory rate 2022-05-23 10:00:00 14 /min Univ ersity [facility] [place] [facility] Oxygen saturation in 2022-05-23 10:00:00 96 /min [facility] of Arterial blood by [facility] Pulse oximetry Branch Body temperature 2022-05-23 08:49:00 36.72 Nita [facility] [place] [facility] Body height 2022-05-23 08:49:00 167.6 cm [facility] [place] [facility] Body weight 2022-05-23 08:49:00 81.647 kg [facility] [place] [facility] BMI 2022-05-23 08:49:00 29.05 kg/m2 [facility] [place] [facility] Systolic blood 2022-05-19 14:32:00 153 mm[Hg] Univer sity of pressure [place] [facility] Diastolic blood 2022-05-19 14:32:00 82 mm[Hg] Unive rsity of pressure [place] [facility] Heart rate 2022-05-19 14:31:00 86 /min [facility] [place] [facility] Body temperature 2022-05-19 14:31:00 36.11 Nita [facility] [place] [facility] Body height 2022-05-19 14:31:00 167.6 cm [facility] [place] [facility] Body weight 2022-05-19 14:31:00 87.544 kg [facility] [place] [facility] BMI 2022-05-19 14:31:00 31.15 kg/m2 [facility] [place] [facility] Oxygen saturation in 2022-05-19 14:31:00 97 /min University of Arterial blood by [facility] Pulse oximetry Branch Systolic blood 2022-05-03 14:51:00 136 mm[Hg] Univer sity of pressure [place] [facility] Diastolic blood 2022-05-03 14:51:00 80 mm[Hg] Unive rsity of pressure [place] [facility] Heart rate 2022-05-03 14:51:00 68 /min Universi ty of [facility] Body height 2022-05-03 14:51:00 167.6 cm [facility]i ty of [facility] Body weight 2022-05-03 14:51:00 84.369 kg [facility]i ty of [facility] BMI 2022-05-03 14:51:00 30.02 kg/m2 [facility]i ty of [facility] Systolic blood 2022-04-13 15:41:00 128 mm[Hg] Univer sity of pressure [place] [facility] Diastolic blood 2022-04-13 15:41:00 88 mm[Hg] Unive rsity of pressure [facility] Heart rate 2022-04-13 15:41:00 88 /min Universi ty of [facility] Respiratory rate 2022-04-13 15:41:00 18 /min Univ ersity of [facility] Body height 2022-04-13 15:41:00 167.6 cm [facility]i ty of [facility] Body weight 2022-04-13 15:41:00 86.047 kg [facility] [place] [facility] BMI 2022-04-13 15:41:00 30.62 kg/m2 [facility]i [facility] of [facility] Oxygen saturation in 2022-04-13 15:41:00 96 /min University Arterial blood by [facility] Pulse oximetry Branch Systolic blood 2022-04-07 16:41:00 162 mm[Hg] Univer sity of pressure [facility] Diastolic blood 2022-04-07 16:41:00 89 mm[Hg] Unive rsity of pressure [facility] Heart rate 2022-04-07 16:41:00 81 /min Universi ty of [facility] Body weight 2022-04-07 16:39:00 86.183 kg [facility]i ty of [facility] BMI 2022-04-07 16:39:00 30.67 kg/m2 [facility]i ty of [facility] Systolic blood 2022-02-02 15:24:00 133 mm[Hg] Univer sity of pressure [facility] Diastolic blood 2022-02-02 15:24:00 82 mm[Hg] Unive rsity of pressure [facility] Heart rate 2022-02-02 15:24:00 82 /min [facility] [place] [facility] Body height 2022-02-02 15:24:00 167.6 cm [facility] [place] [facility] Body weight 2022-02-02 15:24:00 83.008 kg [facility] [place] [facility] BMI 2022-02-02 15:24:00 29.54 kg/m2 Universi ty of [facility] Branch Systolic blood 2022-01-03 15:07:00 129 mm[Hg] Univer sity of pressure [place] [facility] Diastolic blood 2022-01-03 15:07:00 82 mm[Hg] Unive rsity of pressure [facility] Heart rate 2022-01-03 15:07:00 76 /min Universi ty of [facility] Body temperature 2022-01-03 15:07:00 36.83 Nita Univ ersity of [facility] Branch Body height 2022-01-03 15:07:00 167.6 cm [facility]i ty of [facility] Body weight 2022-01-03 15:07:00 83.462 kg [facility] [place] [facility] BMI 2022-01-03 15:07:00 29.70 kg/m2 [facility]i ty of [facility] Branch Systolic blood 2021-12-08 15:22:00 144 mm[Hg] Univer sity of [facility] Branch Diastolic blood 2021-12-08 15:22:00 84 mm[Hg] Unive rsity of pressure [facility] Heart rate 2021-12-08 15:18:00 70 /min [facility] [place] [facility] Body height 2021-12-08 15:18:00 167.6 cm [facility] [place] [facility] Body weight 2021-12-08 15:18:00 83.326 kg [facility] [place] [facility] BMI 2021-12-08 15:18:00 29.65 kg/m2 [facility]i ty of [facility] Branch Oxygen saturation in 2021-12-08 15:18:00 100 /min University Arterial blood by [facility] Pulse oximetry Branch Systolic blood 2021-12-02 16:05:00 130 mm[Hg] Univer sity of pressure [facility] Diastolic blood 2021-12-02 16:05:00 78 mm[Hg] Unive rsity of pressure [facility] Heart rate 2021-12-02 16:05:00 61 /min [facility] [place] [facility] Body temperature 2021-12-02 16:05:00 37.22 Nita Univ [facility] [place] [facility] Body height 2021-12-02 16:05:00 167.6 cm [facility] [place] [facility] Body weight 2021-12-02 16:05:00 84.369 kg [facility] [place] [facility] BMI 2021-12-02 16:05:00 30.02 kg/m2 [facility] [place] [facility] Systolic blood 2021-11-02 14:34:00 133 mm[Hg] Univer sity of pressure [place] [facility] Diastolic blood 2021-11-02 14:34:00 79 mm[Hg] Unive rsity of pressure [place] [facility] Heart rate 2021-11-02 14:34:00 80 /min [facility] [place] [facility] Body height 2021-11-02 14:34:00 167.6 cm [facility] [place] [facility] Body weight 2021-11-02 14:34:00 84.823 kg [facility] [place] [facility] BMI 2021-11-02 14:34:00 30.18 kg/m2 [facility] [place] [facility] Systolic blood 2021-10-05 19:18:00 152 mm[Hg] Univer sity of pressure [place] [facility] Diastolic blood 2021-10-05 19:18:00 87 mm[Hg] Unive rsity of [facility] [place] [facility] Heart rate 2021-10-05 19:18:00 83 /min [facility] [place] [facility] Body temperature 2021-10-05 19:18:00 37.33 Nita [facility] [place] [facility] Body height 2021-10-05 19:18:00 167.6 cm [facility] [place] [facility] Body weight 2021-10-05 19:18:00 86.637 kg [facility] [place] [facility] BMI 2021-10-05 19:18:00 30.83 kg/m2 [facility] [place] [facility] Oxygen saturation in 2021-10-05 19:18:00 99 /min [facility] Arterial blood by [facility] Pulse oximetry Branch Heart rate 2022-06-23 15:28:08 91 /min [facility] Respiratory rate 2022-06-23 15:28:08 18 /min [facility] Oxygen saturation in 2022-06-23 15:28:08 100 /min [facility] Arterial blood by Medical Ce nter Pulse oximetry Body temperature 2022-06-23 15:28:04 36.89 Nita [facility] Systolic blood 2022-06-23 15:27:00 144 mm[Hg] [facility] Diastolic blood 2022-06-23 15:27:00 79 mm[Hg] [facility] Body height 2022-06-21 11:16:00 167.6 cm [facility] Body weight 2022-06-21 11:16:00 87.181 kg [facility] BMI 2022-06-21 11:16:00 31.02 kg/m2 [facility] Initial DRG Weight: 2020-02-15 05:04:52 0.8372 Working [...] Temperature 2020-02-15 05:04:52 36.6\\S\\97.9 Weight 2020-02-15 05:04:52 86246\\S\\2627.91 Weight Measurement 2020-02-15 05:04:52 Built in Bedscale [...] Temperature 2020-02-10 08:28:02 36.6\\S\\97.9 Weight 2020-02-10 08:28:02 46642\\S\\2627.91 Weight Measurement 2020-02-10 08:28:02 Built in Bedscale Method 02 Sat by Pulse 2020-02-06 14:55:36 100 /min Oximetry Body Mass Index 2020-02-06 14:55:36 26.5 Height 2020-02-06 14:55:36 167.64\\S\\66 Pulse Rate 2020-02-06 14:55:36 70 /min Pulse Strength 2020-02-06 14:55:36 Normal /min Respiratory Rate 2020-02-06 14:55:36 20 /min Respiratory Depth 2020-02-06 14:55:36 Normal /min Respiratory Effort 2020-02-06 14:55:36 Spontaneous /min Respiratory Pattern 2020-02-06 14:55:36 Normal /min Temperature 2020-02-06 14:55:36 36.6\\S\\97.9 Weight 2020-02-06 14:55:36 23511\\S\\2627.91 Weight Measurement 2020-02-06 14:55:36 Built in Bedscale Method Initial DRG Weight: 2020-02-06 14:55:36 0.8372 Working DRG Weight: 2020-02-06 14:55:36 0.8372 ARLYN CHARGE Pulse 2020-02-06 14:55:36 Single Pulse Ox Oximetry /min Have you Lost Weight 2020-02-06 14:55:36 No Without Trying in the Past 6 Months? Initial DRG Weight: 2020-02-06 14:55:35 0.8372 Working DRG Weight: 2020-02-06 14:55:35 0.8372 [...] Temperature 2020-02-06 12:25:52 36.7\\S\\98.1 Weight 2020-02-06 12:25:52 58273\\S\\2627.91 Weight Measurement 2020-02-06 12:25:52 Built in Bedscale [...] Temperature 2020-02-04 14:40:56 36.3\\S\\97.3 Weight 2020-02-04 14:40:56 28933\\S\\2627.91 Weight Measurement 2020-02-04 14:40:56 Built in Bedscale [...] Temperature 2020-02-04 12:53:01 36.3\\S\\97.3 Weight 2020-02-04 12:53:01 25121\\S\\2627.91 Weight Measurement 2020-02-04 12:53:01 Built in Bedscale [...] Temperature 2020-02-04 10:07:56 36.7\\S\\98.1 Weight 2020-02-04 10:07:56 15884\\S\\2627.91 Weight Measurement 2020-02-04 10:07:56 Built in Bedscale Method ARLYN CHARGE Pulse 2020-02-04 06:31:28 Single Pulse Ox [...] Temperature 2020-02-04 06:31:28 36.7\\S\\98.1 Weight 2020-02-04 06:31:28 46243\\S\\2627.91 Weight Measurement 2020-02-04 06:31:28 Built in Bedscale [...] Temperature 2020-02-03 15:40:21 37.1\\S\\98.8 Weight 2020-02-03 15:40:21 57014\\S\\2627.91 Weight Measurement 2020-02-03 15:40:21 Built in Bedscale [...] Temperature 2020-02-03 13:59:33 37.1\\S\\98.8 Weight 2020-02-03 13:59:33 37389\\S\\2627.91 Weight Measurement 2020-02-03 13:59:33 Built in Bedscale [...] Temperature 2020-02-03 13:57:29 37.1\\S\\98.8 Weight 2020-02-03 13:57:29 36223\\S\\2627.91 Weight Measurement 2020-02-03 13:57:29 Built in [employer] Method WEIGHT 2020-02-03 05:44:00 74.5 kg HEIGHT 2020-02-03 05:00:00 167.64 cm Respitory Rate 2014-07-22 20:45:00 [facility] [place] Heart Rate 2014-07-22 20:45:00 [facility] [place] Systolic (mm Hg) 2014-07-22 20:45:00 Jack rial [place] Diastolic (mm Hg) 2014-07-22 20:45:00 Mem orial [place] Height 2014-07-22 17:53:00 167.64 cm [facility] [place] Weight 2014-07-22 17:53:00 [facility] [place] BMI Calculated 2014-07-22 17:53:00 Memori al [facility] Respitory Rate 2014-07-22 17:53:00 Memori al [facility] Temperature Oral (F) 2014-07-22 17:53:00 97.9 F [facility] [place] Heart Rate 2014-07-22 17:53:00 [facility] [place] Systolic (mm Hg) 2014-07-22 17:53:00 Jack rial [place] Diastolic (mm Hg) 2014-07-22 17:53:00 Mem orial [facility] Procedures Procedure Date / Time Performing Clinician Source Performed US RENAL COMPLETE 2022-06-23 16:47:00 Kendra [facility] CBC W/PLT COUNT & AUTO 2022-06-23 05:27:[address] [facility] DIFFERENTIAL [place] CBC W/PLT COUNT & AUTO 2022-06-23 05:27:[address] [facility] DIFFERENTIAL [place] US ABDOMEN LIMITED 2022-06-22 16:17:00 Olga Abraham [facility] BASIC METABOLIC PANEL 2022-06-22 03:48:00 [facility] 2022-06-22 03:48:[address] [facility] HEPATIC FUNCTION PANEL 2022-06-22 03:48:00 [facility] W/[facility]T COUNT & AUTO 2022-06-22 03:48:00 Fabienne [facility] DIFFERENTIAL Center PROTEIN ELECTROPHORESIS, 2022-06-22 03:48:00 Fabienne [facility] IRON, TIBC, % SAT. 2022-06-22 03:48:00 Fabienne [facility] (WITHOUT FERRITIN) [place] VITAMIN B12 2022-06-22 03:48:[address] [facility] FERRITIN 2022-06-22 03:48:[address] [facility] HEPARIN ANTIBODY 2022-06-22 03:48:00 Fabienne [facility] LACTATE DEHYDROGENASE 2022-06-22 03:48:00 [facility] ([facility]) [facility] HAPTOGLOBIN 2022-06-22 03:48:00 [facility] RETICULOCYTE COUNT 2022-06-22 03:48:00 [facility] Kristy [place] SERUM IMMUNOTYPING 2022-06-22 03:48:00 Fabienne [facility] SEROTONIN RELEASE ASSAY 2022-06-22 03:48:[address] [facility] CBC W/PLT COUNT & AUTO 2022-06-22 03:48:00 Fabienne [facility] DIFFERENTIAL [place] URINE PROTEIN 2022-06-21 16:38:00 [facility], RANDOM Center SARS-COV2/RT-PCR ([facility] & 2022-06-21 11:14:00 Fabienne [facility] REF LABS) Center COMPREHENSIVE METABOLIC 2022-06-21 11:12:00 Olga Abraham [facility] Center PROTHROMBIN TIME/INR 2022-06-21 11:12:00 Olga Abraham [facility] CBC W/PLT COUNT & AUTO 2022-06-21 11:12:00 Olga Abraham [facility] DIFFERENTIAL Center CBC W/PLT COUNT & AUTO 2022-06-21 11:12:00 Olga Abraham [facility] PHOSPHORUS 2022-06-07 09:16:00 [facility] MAGNESIUM 2022-06-07 09:16:00 [facility] BASIC METABOLIC PANEL 2022-06-07 09:16:00 [facility] (NA, K, CL, CO2, GLUCOSE, Faustino Medica l Branch BUN, CREATININE, CA) PHOSPHORUS 2022-06-05 11:13:00 [facility] [place] MAGNESIUM 2022-06-05 11:13:00 [facility] [place] BASIC METABOLIC PANEL 2022-06-05 11:13:00 [facility]atiFormerly [facility] (NA, K, CL, CO2, GLUCOSE, Rod, Juanpablo Medica l Branch BUN, CREATININE, CA) [place] CBC WITH DIFF 2022-06-05 11:13:00 [facility] [place] PHOSPHORUS 2022-06-05 11:13:00 Prajapati [facility] Jose [place] MAGNESIUM 2022-06-05 11:13:00 [facility] [place] BASIC METABOLIC PANEL 2022-06-05 11:13:00 Prajapati [facility] (NA, K, CL, CO2, GLUCOSE, Rod, [facility]ablo Medica l Branch BUN, CREATININE, CA) [place] CBC WITH DIFF 2022-06-05 11:13:00 Alo Brown [facility] Jose [place] CT THORAX W CONTRAST 2022-06-05 01:36:13 [facility]od [facility] CT THORAX W CONTRAST 2022-06-05 01:36:13 [facility] Jarod [facility] ACTIVATED PARTIAL 2022-06-04 18:00:00 Dannie [facility] ACTIVATED PARTIAL 2022-06-04 18:00:00 Dannie [facility] ACTIVATED PARTIAL 2022-06-04 14:21:00 [facility] ACTIVATED PARTIAL 2022-06-04 14:21:00 [facility] XR KUB 2022-06-04 09:32:00 Dannie [facility] XR KUB 2022-06-04 09:32:00 Dannie [facility] XR KUB 2022-06-04 06:45:00 Dannie [facility] XR KUB 2022-06-04 06:45:00 Dannie [facility] HIT - AB 2022-06-04 06:14:00 Armando Pandey [facility] EXTRA SST HOLD FOR ARUP 2022-06-04 06:14:[address] [facility] HIT - AB 2022-06-04 06:14:00 [facility] FOR [facility] 2022-06-04 06:14:[address] [facility] XR CHEST 1 VW 2022-06-04 05:23:00 Armando Pandey [facility] XR CHEST 1 VW 2022-06-04 05:23:00 Armando Pandey [facility] TROPONIN I 2022-06-04 04:51:00 Armando Pandey [facility] HEPATIC FUNCTION PANEL 2022-06-04 04:51:00 Armando Pandey Unive [facility] ([id number]) (ALB,T.PRO,BILI Medical Branch T,BU/BC,ALT,AST,ALK PHOS) BASIC METABOLIC PANEL 2022-06-04 04:51:00 Armando Pandey [facility] (NA, K, CL, CO2, GLUCOSE, Medica l Branch BUN, CREATININE, CA) CBC WITH DIFF 2022-06-04 04:51:00 Armando Pandey [facility] ACTIVATED PARTIAL 2022-06-04 04:51:00 [facility]ree[facility] TROPONIN I 2022-06-04 04:51:00 Armando Pandey [facility] HEPATIC FUNCTION PANEL 2022-06-04 04:51:00 Armando Pandey [facility] ([id number]) (ALB,T.PRO,BILI Medical Branch T,BU/BC,ALT,AST,ALK PHOS) BASIC METABOLIC PANEL 2022-06-04 04:51:00 Armando Pandey [facility] (NA, K, CL, CO2, GLUCOSE, Medica l Branch BUN, CREATININE, CA) CBC WITH DIFF 2022-06-04 04:51:00 Armando Pandey [facility] ACTIVATED PARTIAL 2022-06-04 04:51:00 [facility] HB ECG ROUTINE & RHYTHM 2022-06-04 04:43:15 Armando Pandey [facility] HB ECG ROUTINE & RHYTHM 2022-06-04 04:43:15 Armando Pandey [facility] ACTIVATED PARTIAL 2022-06-03 20:52:00 [facility] ACTIVATED PARTIAL 2022-06-03 20:52:00 [facility] FL TIME OR 2022-06-03 17:21:00 [facility] Rod [facility] [place] TIME OR 2022-06-03 17:21:00 Prajapati [facility] ([facility]+COOX+NA+K+GLU+CA2+ 2022-06-03 16:52:00 Allan Lynch [facility] ABG+COOX+NA+K+GLU+CA2+ 2022-06-03 16:52:00 Allan Lynch [facility] SURGICAL PATHOLOGY EXAM 2022-06-03 15:42:[address] [facility] ABG+COOX+NA+K+GLU+CA2+ 2022-06-03 15:36:00 Allan Lynch [facility] ABG+COOX+NA+K+GLU+CA2+ 2022-06-03 15:36:00 Allan Lynch [facility] HB ABO GROUPING 2022-06-03 13:05:00 Vishnu Zapien [facility] HB ABO GROUPING 2022-06-03 13:05:00 Vishnu Zapien [facility] INFERIOR VENA CAVA FILTER 2022-06-03 12:00:00 Lawrence [facility] VENOUS THROMBECTOMY 2022-06-03 12:00:00 Lawrence Peterson [facility] ANGIOPLASTY 2022-06-03 12:00:00 Lawrence Peterson [facility] VASCULAR STENTING 2022-06-03 12:00:00 Lawrence Peterson [facility] INFERIOR VENA CAVA FILTER 2022-06-03 12:00:00 Lawrence Peterson [facility] VENOUS THROMBECTOMY 2022-06-03 12:00:00 Lawrence Peterson [facility] ANGIOPLASTY 2022-06-03 12:00:00 Lawrence Peterson [facility] VASCULAR STENTING 2022-06-03 12:00:00 Lawrence Peterson [facility] PHOSPHORUS 2022-06-03 10:34:00 Alo [facility] [place] MAGNESIUM 2022-06-03 10:34:00 [facility] [place] BASIC METABOLIC PANEL 2022-06-03 10:34:00 Prajapati [facility] (NA, K, CL, CO2, GLUCOSE, Rod, [facility] BUN, CREATININE, CA) [place] CBC WITH DIFF 2022-06-03 10:34:00 [facility] [place] ACTIVATED PARTIAL 2022-06-03 10:34:00 [facility] 2022-06-03 10:34:00 Prajapati [facility] [place] MAGNESIUM 2022-06-03 10:34:00 [facility] [place] BASIC METABOLIC PANEL 2022-06-03 10:34:00 Prajapati [facility] (NA, K, CL, CO2, GLUCOSE, Rod, [facility] BUN, CREATININE, CA) [place] CBC WITH DIFF 2022-06-03 10:34:00 [facility] [place] ACTIVATED PARTIAL 2022-06-03 10:34:00 [facility] 2022-06-02 22:26:00 [facility] ACTIVATED PARTIAL 2022-06-02 22:26:00 [facility] ACTIVATED PARTIAL 2022-06-02 15:46:00 [facility] ACTIVATED PARTIAL 2022-06-02 15:46:00 [facility] PHOSPHORUS 2022-06-02 10:27:00 [facility] [place] MAGNESIUM 2022-06-02 10:27:00 [facility] [place] BASIC METABOLIC PANEL 2022-06-02 10:27:00 PrajapatiFormerly [facility] (NA, K, CL, CO2, GLUCOSE, Rod, [facility] BUN, CREATININE, CA) [place] CBC WITH DIFF 2022-06-02 10:27:00 Prajapati [facility] [place] PHOSPHORUS 2022-06-02 10:27:00 Prajapati [facility] [place] MAGNESIUM 2022-06-02 10:27:00 Prajapati [facility] [place] BASIC METABOLIC PANEL 2022-06-02 10:27:00 Prajapati [facility] (NA, K, CL, CO2, GLUCOSE, Rod, [facility] BUN, CREATININE, CA) [place] CBC WITH DIFF 2022-06-02 10:27:00 Prajapati [facility] [place] PHOSPHORUS 2022-06-01 10:05:00 Prajapati [facility] Jose [place] MAGNESIUM 2022-06-01 10:05:00 Prajapati [facility] [place] BASIC METABOLIC PANEL 2022-06-01 10:05:00 Prajapati [facility] (NA, K, CL, CO2, GLUCOSE, Rod, [facility] BUN, CREATININE, CA) [place] CBC WITH DIFF 2022-06-01 10:05:00 Prajapati [facility] [place] PHOSPHORUS 2022-06-01 10:05:00 Prajapati [facility] [place] MAGNESIUM 2022-06-01 10:05:00 Prajapati [facility] Jose [place] BASIC METABOLIC PANEL 2022-06-01 10:05:00 Prajapati [facility] (NA, K, CL, CO2, GLUCOSE, Rod, [facility] BUN, CREATININE, CA) [place] CBC WITH DIFF 2022-06-01 10:05:00 [facility] [place] PHOSPHORUS 2022-05-31 11:01:00 [facility] [place] MAGNESIUM 2022-05-31 11:01:00 [facility] [place] BASIC METABOLIC PANEL 2022-05-31 11:01:00 PrajapatiFormerly [facility] (NA, K, CL, CO2, GLUCOSE, Rod, [facility] BUN, CREATININE, CA) [place] CBC WITH DIFF 2022-05-31 11:01:00 [facility] [place] PROTHROMBIN TIME / INR 2022-05-31 11:01:00 Maurice Gutierrez [facility] ACTIVATED PARTIAL 2022-05-31 11:01:00 Juanpablo Salmon [facility] FIBRINOGEN 2022-05-31 11:01:00 Ryley Polo [facility] PHOSPHORUS 2022-05-31 11:01:00 [facility] [place] MAGNESIUM 2022-05-31 11:01:00 [facility] [place] BASIC METABOLIC PANEL 2022-05-31 11:01:00 [facility] (NA, K, CL, CO2, GLUCOSE, Rod, [facility] BUN, CREATININE, CA) [place] CBC WITH DIFF 2022-05-31 11:01:00 [facility] [place] PROTHROMBIN TIME / INR 2022-05-31 11:01:00 Juanpablo Salmon [facility] ACTIVATED PARTIAL 2022-05-31 11:01:00 Juanpablo Salmon [facility] FIBRINOGEN 2022-05-31 11:01:00 [facility] PHOSPHORUS 2022-05-31 11:01:00 [facility] [place] MAGNESIUM 2022-05-31 11:01:00 [facility] [place] BASIC METABOLIC PANEL 2022-05-31 11:01:00 [facility] (NA, K, CL, CO2, GLUCOSE, Rod, [facility] BUN, CREATININE, CA) [place] CBC WITH DIFF 2022-05-31 11:01:00 [facility] [place] PROTHROMBIN TIME / INR 2022-05-31 11:01:00 Maurice Gutierrez [facility] ACTIVATED PARTIAL 2022-05-31 11:01:00 Juanpablo Salmon [facility] FIBRINOGEN 2022-05-31 11:01:00 Christ [facility] [place] TIME OR 2022-05-31 04:56:00 [facility] (NON-REPORTABLE) [facility] [place] TIME OR 2022-05-31 04:56:00 [facility] (NON-REPORTABLE) [facility] [place] TIME OR 2022-05-31 04:56:00 [place], [facility] (NON-REPORTABLE) [facility] FIBRINOGEN 2022-05-31 01:26:00 Christ [facility] FIBRINOGEN 2022-05-31 01:26:00 Christ [facility] FIBRINOGEN 2022-05-31 01:26:00 Christ [facility] VENOGRAM 2022-05-31 01:17:00 Cris [facility] VENOGRAM 2022-05-31 01:17:00 Cris [facility] FIBRINOGEN 2022-05-30 21:47:00 Tsukagoshi, [facility] FIBRINOGEN 2022-05-30 21:47:00 Christ [facility] FIBRINOGEN 2022-05-30 21:47:00 Christ [facility] FIBRINOGEN 2022-05-30 18:14:00 Christ [facility] FIBRINOGEN 2022-05-30 18:14:00 Christ [facility] FIBRINOGEN 2022-05-30 18:14:00 Christ [facility] FIBRINOGEN 2022-05-30 18:14:00 Christ [facility] FIBRINOGEN 2022-05-30 15:21:00 Christ [facility] FIBRINOGEN 2022-05-30 15:21:00 Christ [facility] FIBRINOGEN 2022-05-30 15:21:00 Christ [facility] FIBRINOGEN 2022-05-30 15:21:00 Christ [facility] FIBRINOGEN 2022-05-30 13:12:00 Christ [facility] FIBRINOGEN 2022-05-30 13:12:00 Christ [facility] FIBRINOGEN 2022-05-30 13:12:00 Christ [facility] FIBRINOGEN 2022-05-30 13:12:00 Christ [facility] FIBRINOGEN 2022-05-30 11:13:00 Christ [facility] FIBRINOGEN 2022-05-30 11:13:00 Christ [facility] FIBRINOGEN 2022-05-30 11:13:00 Christ [facility] FIBRINOGEN 2022-05-30 11:13:00 Christ [facility] PHOSPHORUS 2022-05-30 09:27:00 Tssheila [facility] MAGNESIUM 2022-05-30 09:27:00 Christ [facility] BASIC METABOLIC PANEL 2022-05-30 09:27:00 [facility] (NA, K, CL, CO2, GLUCOSE, Medica l Branch BUN, CREATININE, CA) CBC WITH DIFF 2022-05-30 09:27:00 Christ [facility] ACTIVATED PARTIAL 2022-05-30 09:27:00 Christ [facility] FIBRINOGEN 2022-05-30 09:27:00 Christ [facility] PHOSPHORUS 2022-05-30 09:27:00 Christ [facility] MAGNESIUM 2022-05-30 09:27:00 Christ [facility] BASIC METABOLIC PANEL 2022-05-30 09:27:00 Christ [facility] (NA, K, CL, CO2, GLUCOSE, Medica l Branch BUN, CREATININE, CA) CBC WITH DIFF 2022-05-30 09:27:00 Christ [facility] ACTIVATED PARTIAL 2022-05-30 09:27:00 Christ [facility] FIBRINOGEN 2022-05-30 09:27:00 Christ [facility] PHOSPHORUS 2022-05-30 09:27:00 Christ [facility] MAGNESIUM 2022-05-30 09:27:00 Christ [facility] BASIC METABOLIC PANEL 2022-05-30 09:27:00 Christ [facility] (NA, K, CL, CO2, GLUCOSE, Medica l Branch BUN, CREATININE, CA) CBC WITH DIFF 2022-05-30 09:27:00 Christ [facility] ACTIVATED PARTIAL 2022-05-30 09:27:00 Christ [facility] FIBRINOGEN 2022-05-30 09:27:00 Christ [facility] PHOSPHORUS 2022-05-30 09:27:00 Christ [facility] MAGNESIUM 2022-05-30 09:27:00 Christ [facility] BASIC METABOLIC PANEL 2022-05-30 09:27:00 [facility] (NA, K, CL, CO2, GLUCOSE, Medica l Branch BUN, CREATININE, CA) CBC WITH DIFF 2022-05-30 09:27:00 Christ [facility] ACTIVATED PARTIAL 2022-05-30 09:27:00 Christ [facility] FIBRINOGEN 2022-05-30 09:27:00 Christ [facility] FIBRINOGEN 2022-05-30 06:58:00 Christ [facility] FIBRINOGEN 2022-05-30 06:58:00 Christ [facility] FIBRINOGEN 2022-05-30 06:58:00 Christ [facility] FIBRINOGEN 2022-05-30 06:58:00 Christ [facility] ACTIVATED PARTIAL 2022-05-30 06:13:00 Christ [facility] ACTIVATED PARTIAL 2022-05-30 06:13:00 Christ [facility] ACTIVATED PARTIAL 2022-05-30 06:13:00 Christ [facility] ACTIVATED PARTIAL 2022-05-30 06:13:00 Christ [facility] FIBRINOGEN 2022-05-30 04:43:00 Cris [facility] FIBRINOGEN 2022-05-30 04:43:00 Cris [facility] FIBRINOGEN 2022-05-30 04:43:00 Cris [facility] FIBRINOGEN 2022-05-30 04:43:00 Cris [facility] FIBRINOGEN 2022-05-29 23:24:00 Nallelysheila [facility] FIBRINOGEN 2022-05-29 23:24:00 Nallelysheila [facility] FIBRINOGEN 2022-05-29 23:24:00 Nallelyanaedenvitaliy [facility] FIBRINOGEN 2022-05-29 23:24:00 Christ [facility] FIBRINOGEN 2022-05-29 21:10:00 Cris [facility] FIBRINOGEN 2022-05-29 21:10:00 Cris [facility] FIBRINOGEN 2022-05-29 21:10:00 Cris [facility] FIBRINOGEN 2022-05-29 21:10:00 Cris [facility] BASIC METABOLIC PANEL 2022-05-29 14:55:00 Dannie, Armando [facility] (NA, K, CL, CO2, GLUCOSE, Medica l Branch BUN, CREATININE, CA) CBC WITH DIFF 2022-05-29 14:55:00 [facility] 2022-05-29 14:55:00 Cris [facility] BASIC METABOLIC PANEL 2022-05-29 14:55:00 Dannie, Armando [facility] [place] (NA, K, CL, CO2, GLUCOSE, Medica l Branch BUN, CREATININE, CA) CBC WITH DIFF 2022-05-29 14:55:00 Dannie [facility] FIBRINOGEN 2022-05-29 14:55:00 Cris [facility] BASIC METABOLIC PANEL 2022-05-29 14:55:00 Dannie, Armando [facility] [place] (NA, K, CL, CO2, GLUCOSE, Medica l Branch BUN, CREATININE, CA) CBC WITH DIFF 2022-05-29 14:55:00 Dannie [facility] FIBRINOGEN 2022-05-29 14:55:00 Cris [facility] BASIC METABOLIC PANEL 2022-05-29 14:55:00 Dannie, Armando [facility] [place] (NA, K, CL, CO2, GLUCOSE, Medica l Branch BUN, CREATININE, CA) CBC WITH DIFF 2022-05-29 14:55:00 Armando Pandey [facility] FIBRINOGEN 2022-05-29 14:55:00 Cris Allan [facility] [place] TIME OR 2022-05-29 14:03:00 Kevonsheng [facility] (NON-REPORTABLE) [facility] [place] TIME OR 2022-05-29 14:03:00 Alejandrosentara [facility] (NON-REPORTABLE) [facility] [place] TIME OR 2022-05-29 14:03:00 [facility] (NON-REPORTABLE) [facility] [place] TIME OR 2022-05-29 14:03:00 Alejandrosentara [facility] (NON-REPORTABLE) [facility] VENOUS THROMBOLYSIS 2022-05-29 12:05:00 Cris [facility] VENOUS THROMBOLYSIS 2022-05-29 12:05:00 Allan Lynch [facility] MAGNESIUM 2022-05-29 11:11:00 Reyna [facility] BASIC METABOLIC PANEL 2022-05-29 11:11:00 Amber Orellana [facility] (NA, K, CL, CO2, GLUCOSE, Medica l Branch BUN, CREATININE, CA) CBC WITHOUT DIFF 2022-05-29 11:11:00 [facility] 2022-05-29 11:11:00 [facility] MAGNESIUM 2022-05-29 11:11:00 Reyna [facility] BASIC METABOLIC PANEL 2022-05-29 11:11:00 Amber Orellana [facility] (NA, K, CL, CO2, GLUCOSE, Medica l Branch BUN, CREATININE, CA) CBC WITHOUT DIFF 2022-05-29 11:11:00 Reyna [facility] ACTIVATED PARTIAL 2022-05-29 11:11:00 [facility]UM 2022-05-29 11:11:00 Reyna [facility] BASIC METABOLIC PANEL 2022-05-29 11:11:00 [facility] (NA, K, CL, CO2, GLUCOSE, Medica l Branch BUN, CREATININE, CA) CBC WITHOUT DIFF 2022-05-29 11:11:00 Reyna [facility] ACTIVATED PARTIAL 2022-05-29 11:11:00 [facility] MAGNESIUM 2022-05-29 11:11:00 Reyna [facility] BASIC METABOLIC PANEL 2022-05-29 11:11:00 [facility] (NA, K, CL, CO2, GLUCOSE, Medica l Branch BUN, CREATININE, CA) CBC WITHOUT DIFF 2022-05-29 11:11:00 [facility] ACTIV[facility] 2022-05-29 11:11:00 [facility] ABORH CONFIRMATION (LAB 2022-05-28 23:34:00 Val Lance [facility] ONLY) Medical Branch ABORH CONFIRMATION (LAB 2022-05-28 23:34:00 Val [facility] ONLY) Medical Branch ABORH CONFIRMATION (LAB 2022-05-28 23:34:00 Val [facility] ONLY) Medical Branch ABORH CONFIRMATION (LAB 2022-05-28 23:34:00 Val [facility] ONLY) Medical Branch HB ABO GROUPING 2022-05-28 23:00:00 [facility]ING 2022-05-28 23:00:00 [facility] HB [facility]BO GROUPING 2022-05-28 23:00:00 [facility] HB ABO GROUPING 2022-05-28 23:00:00 [facility] ACTIVATED PARTIAL 2022-05-28 22:59:00 [facility] 2022-05-28 22:59:00 [facility] 2022-05-28 22:59:00 [facility] ACT[facility]ATED [facility] 2022-05-28 22:59:00 [facility] PROTHROMBIN TIME / INR 2022-05-28 17:23:00 Amber Orellana [facility] ACTIVATED PARTIAL 2022-05-28 17:23:00 [facility] PROT[facility]OMBIN TIME / INR 2022-05-28 17:23:00 Amber Orellana [facility] ACTIVATED PARTIAL 2022-05-28 17:23:00 [facility] PROTHROMBIN TIME / INR 2022-05-28 17:23:00 Amber Orellana [facility] ACTIVATED PARTIAL 2022-05-28 17:23:00 [facility] PROTHROMBIN TIME / INR 2022-05-28 17:23:00 Amber Orellana [facility] ACTIVATED PARTIAL 2022-05-28 17:23:00 [facility] BASIC METABOLIC PANEL 2022-05-28 09:09:00 Romario Friedman [facility] (NA, K, CL, CO2, GLUCOSE, Medica l Branch BUN, CREATININE, CA) CBC WITH DIFF 2022-05-28 09:09:00 Romario Friedman [facility] FACTOR 5 LEIDEN 2022-05-28 09:09:00 Liseth Vitale o f [facility] FACTOR 2 [id number] MUTATION 2022-05-28 09:09:00 Liseth Vitale [facility] F5 LEIDEN AND F2 [id number] 2022-05-28 09:09:00 Liseth Vitale [facility] BASIC METABOLIC PANEL 2022-05-28 09:09:00 Romario Friedman [facility] (NA, K, CL, CO2, GLUCOSE, Medica l Branch BUN, CREATININE, CA) CBC WITH DIFF 2022-05-28 09:09:00 Romario Friedman [facility] FACTOR 5 LEIDEN 2022-05-28 09:09:00 [facility] FACTOR 2 [id number] MUTATION 2022-05-28 09:09:00 [facility] F5 LEIDEN AND F2 [id number] 2022-05-28 09:09:00 Liseth Vitale [facility] BASIC METABOLIC PANEL 2022-05-28 09:09:00 Romario Friedman [facility] (NA, K, CL, CO2, GLUCOSE, Medica l Branch BUN, CREATININE, CA) CBC WITH DIFF 2022-05-28 09:09:00 Romario Friedman [facility] FACTOR 5 LEIDEN 2022-05-28 09:09:00 [facility] [id number] MUTATION 2022-05-28 09:09:00 Liseth [facility] F5 LEIDEN AND F2 [id number] 2022-05-28 09:09:00 Liseth Vitale [facility] BASIC METABOLIC PANEL 2022-05-28 09:09:00 Romario Friedman [facility] (NA, K, CL, CO2, GLUCOSE, Medica l Branch BUN, CREATININE, CA) CBC WITH DIFF 2022-05-28 09:09:00 [facility]EN 2022-05-28 09:09:00 [facility] FACTOR 2 [id number] MUTATION 2022-05-28 09:09:00 Liseth [facility] F5 LEIDEN AND F2 [id number] 2022-05-28 09:09:00 Liseth Vitale [facility] TRANSTHORACIC ECHO (TTE) 2022-05-27 15:47:00 [facility] TRANSTHORACIC ECHO (TTE) 2022-05-27 15:47:00 [facility] TRANSTHORACIC ECHO (TTE) 2022-05-27 15:47:00 [facility] W[facility]AST [facility] TRANSTHORACIC ECHO (TTE) 2022-05-27 15:47:00 Romario Friedman [facility] COMPLETE W/ CONTRAST [facility] CT ABDOMEN PELVIS W 2022-05-27 11:28:06 [facility] CT ABDOMEN PELVIS W 2022-05-27 11:28:06 [facility] Medical Branch CT ABDOMEN PELVIS W 2022-05-27 11:28:06 [facility] Medical Branch CT ABDOMEN PELVIS W 2022-05-27 11:28:06 Edionwe, [facility] CONTRAST Medical [place] BASIC METABOLIC PANEL 2022-05-27 09:45[facility] ([facility], K, CL, CO2, GLUCOSE, Medica l Branch BUN, CREATININE, CA) CBC WITH DIFF 2022-05-27 09:45:00 [facility] GLYCOSYLATED HEMOGLOBIN 2022-05-27 09:45:00 [facility]red [facility] (A1C) Medical [place] BASIC METABOLIC PANEL 2022-05-27 09:45:00 [facility] (NA, K, CL, CO2, GLUCOSE, Medica l Branch BUN, CREATININE, CA) CBC WITH DIFF 2022-05-27 09:45:00 [facility] GLYCOSYLATED HEMOGLOBIN 2022-05-27 09:45:00 Winifred [facility] (A1C) [facility] [place] BASIC METABOLIC PANEL 2022-05-27 09:45:00 [facility] (NA, K, CL, CO2, GLUCOSE, Medica l Branch BUN, CREATININE, CA) CBC WITH DIFF 2022-05-27 09:45:00 [facility] GLYCOSYLATED HEMOGLOBIN 2022-05-27 09:45:00 [facility] Medical Branch BASIC METABOLIC PANEL 2022-05-27 09:45:00 [facility] (NA, K, CL, CO2, GLUCOSE, Medica l Branch BUN, CREATININE, CA) CBC WITH DIFF 2022-05-27 09:45:00 [facility] GLYCOSYLATED HEMOGLOBIN 2022-05-27 09:45:00 [facility] (A[facility] [place] DUPLEX VENOUS LEGS 2022-05-27 01:08:52 Meche Zapata [facility] BILATERAL - BY VASCULAR [facility] LAB DUPLEX VENOUS LEGS 2022-05-27 01:08:52 Meche Zapata [facility] BILATERAL - BY VASCULAR [facility] LAB DUPLEX VENOUS LEGS 2022-05-27 01:08:52 Meche Zapata [facility] BILATERAL - BY VASCULAR [facility] LAB DUPLEX VENOUS LEGS 2022-05-27 01:08:52 Meche Zapata [facility] BILATERAL - BY VASCULAR [facility] LAB URINE DRUG (IMMUNOASSAY) 2022-05-26 22:13:00 [facility] SCREEN URINALYSIS 2022-05-26 22:13:00 Meche Zapata [facility] URINE DRUG (IMMUNOASSAY) 2022-05-26 22:13:00 Madelin [facility] SCREEN URINALYSIS 2022-05-26 22:13:00 Meche Zapata [facility] URINE DRUG (IMMUNOASSAY) 2022-05-26 22:13:00 Madelin [facility] SCREEN URINALYSIS 2022-05-26 22:13:00 Meche Zapata [facility] URINE DRUG (IMMUNOASSAY) 2022-05-26 22:13:00 Ondina Yusuf [facility] SCREEN URINALYSIS 2022-05-26 22:13:00 Meche Zapata [facility] HB ECG ROUTINE & RHYTHM 2022-05-26 21:43:55 Meche Zapata [facility] HB ECG ROUTINE & RHYTHM 2022-05-26 21:43:55 Meche Zapata [facility] HB ECG ROUTINE & RHYTHM 2022-05-26 21:43:55 Meche Zapata [facility] HB ECG ROUTINE & RHYTHM 2022-05-26 21:43:55 Meche Zapata [facility] XR CHEST 1 VW 2022-05-26 21:37:08 Meche Zapata [facility] XR CHEST 1 2022-05-26 21:37:08 Meche Zapata [facility] XR CHEST 1 2022-05-26 21:37:08 Meche Zapata [facility] XR CHEST 1 2022-05-26 21:37:08 Meche Zapata [facility] MAGNESIUM 2022-05-26 21:20:00 Meche Zapata [facility] TROPONIN I 2022-05-26 21:20:00 Meche Zapata [facility] COMP. METABOLIC PANEL 2022-05-26 21:20:00 Meche Zapata [facility] ([id number]) [facility] CBC WITH DIFF 2022-05-26 21:20:00 Meche Zapata [facility] N-TERMINAL PRO-BNP 2022-05-26 21:20:00 Meche Zapata [facility] MAGNESIUM 2022-05-26 21:20:00 Meche Zapata [facility] TROPONIN I 2022-05-26 21:20:00 Meche Zapata [facility] COMP. METABOLIC PANEL 2022-05-26 21:20:00 Meche Zapata [facility] ([id number]) [facility] CBC WITH DIFF 2022-05-26 21:20:00 Meche Zapata [facility] N-TERMINAL PRO-BNP 2022-05-26 21:20:00 Meche Zapata [facility] MAGNESIUM 2022-05-26 21:20:00 Meche Zapata [facility] TROPONIN I 2022-05-26 21:20:00 Meche Zapata [facility] COMP. METABOLIC PANEL 2022-05-26 21:20:00 Meche Zapata [facility] ([id number]) Medical Branch CBC WITH DIFF 2022-05-26 21:20:00 Meche Zapata [facility] N-TERMINAL PRO-BNP 2022-05-26 21:20:00 Meche Zapata [facility] MAGNESIUM 2022-05-26 21:20:00 Meche Zapata [facility] TROPONIN I 2022-05-26 21:20:00 Meche Zapata [facility] COMP. METABOLIC PANEL 2022-05-26 21:20:00 Meche Zapata [facility] ([id number]) [facility] CBC WITH DIFF 2022-05-26 21:20:00 Meche Zapata [facility] N-TERMINAL PRO-BNP 2022-05-26 21:20:00 Meche Zapata [facility] HOSPITAL ADMISSION 2022-05-26 05:01:00 Doctor Unassigned, [facility] Name [facility] [place] HOSPITAL ADMISSION 2022-05-26 05:01:00 Doctor Unassigned, [facility] Name [facility] [place] HOSPITAL ADMISSION 2022-05-26 05:01:00 Doctor Unassigned, [facility] Name Medical [place] XR LUMBAR SPINE 3 VW 2022-05-23 09:47:55 Carlos Corbin [facility] DISCLOSURE AND CONSENT, 2022-05-19 05:01:00 Doctor Unassigned, [facility] MEDICAL AND SURGICAL [place] [facility] PROCEDURES PATIENT QUESTIONNAIRE 2022-05-17 05:01:00 Doctor Sergo, [facility] [place] [facility] INSURANCE CORRESPONDENCE 2022-05-16 05:01:00 Doctor Unassagnes, [facility] [place] [facility] INSURANCE CORRESPONDENCE 2022-05-04 05:01:00 Doctor Sergo, [facility] [place] [facility] DME/SUPPLY JUSTIFICATION 2022-04-22 06:01:00 Doctor Tracyssagnes, [facility] [place] [facility] PATIENT FINANCIAL 2022-04-13 15:27:54 Doctor Unasari, [facility] POLICY [place] [facility] SLEEP STUDY DATA REPORT 2022-04-02 06:01:00 Doctor Sergo [facility] [place] [facility] XR HIPS 2 VW RIGHT 2022-03-24 14:56:12 Susan Manjarrez [facility] Medical Branch MR LUMBAR SPINE WO 2022-03-24 14:41:33 Delroy Farah [facility] Medical Branch INSURANCE CORRESPONDENCE 2022-02-15 06:01:00 Doctor Sergo, [facility] [place] [facility] EXTERNAL PROVIDER RECORDS 2022-02-03 06:01:00 Doctor Sergo, [facility] [place] [facility] REFERRAL- 2022-01-17 06:01:00 Doctor Sergo [facility] REQUEST/RESPONSE [place] [facility] ASSIGNMENT OF BENEFITS 2021-12-08 15:11:38 Doctor Sergo, [facility] [place] [facility] SLEEP STUDY DATA REPORT 2021-11-04 05:01:00 Doctor Sergo [facility] [place] [facility] Plan of Care Planned Activity Planned Date Details Comments Source Future Scheduled 2022-10-[address] [facility] Test 00:00:00 (Season Ended) [code = [facility] INFLUENZA VACCINE (Season Ended)] Future Scheduled 2022-07-03 COVID-19 VACCINE (#1) [facility] Test 23:24:31 [code = COVID-19 VACCINE (#1)] Future Scheduled 2022-07-03 Hepatitis C screening [facility] Test 23:24:31 (procedure) [code = 605242305] Future Scheduled 2022-07-03 [facility] 23:24:31 [code = COLONOSCOPY SCREENING] Future Scheduled 2022-07-03 SHINGLES VACCINES (1 [facility] 23:24:31 of 2) [code = SHINGLES VACCINES (1 of 2)] Future Scheduled 2022-07-03 [facility]INE [facility] 23:24:31 [code = INFLUENZA VACCINE] Future Scheduled 2022-05-18 COVID-19 [facility]ACCINE (#[facility] 20:48:55 [code = COVID-19 VACCINE (#1)] Future Scheduled 2022-05-18 [facility] 20:48:55 (procedure) [code = 716716574] Future Scheduled 2022-05-18 [facility] 20:48:55 [code = COLONOSCOPY SCREENING] Future Scheduled 2022-05-18 [facility]IN[facility] 20:48:55 of 2) [code = SHINGLES VACCINES (1 of 2)] Future Scheduled 2022-05-18 [facility]FL[facility]ENZA VACCINE [facility] Test 20:48:55 [code = INFLUENZA VACCINE] Future Scheduled 2022-05-18 COVID-19 VACCINE (#1) [facility] 20:48:55 [code = COVID-19 VACCINE (#1)] Future Scheduled 2022-05-18 [facility] 20:48:55 (procedure) [code = 529288802] Future Scheduled 2022-05-18 [facility] 20:48:55 [code = COLONOSCOPY SCREENING] Future Scheduled 2022-05-18 SHINGLES VACCINES (1 [facility] 20:48:55 of 2) [code = SHINGLES VACCINES (1 of 2)] Future Scheduled 2022-05-18 [facility]FLUENZA VACCINE [facility] Test 20:48:55 [code = INFLUENZA VACCINE] Future Scheduled 2022-02-13 Medicare IPPE (WELCOME [facility]00 TO MEDICARE) [code = Medical Center Medicare IPPE (WELCOME TO MEDICARE)] Future Scheduled 2021-10-15 HEPATITIS B VACCINES [facility] Test 19:26:49 (1 of 3 - 3-dose series) [code = HEPATITIS B VACCINES (1 of 3 - 3-dose series)] Future Scheduled 2021-10-15 COVID-19 VACCINE (#1) [facility] Hospital Test 19:26:49 [code = COVID-19 VACCINE (#1)] Future Scheduled 2021-10-[address] [facility] Hospital Test 19:26:49 (procedure) [code = 509188611] Future Scheduled 2021-10-[address] [facility] Hospital Test 19:26:49 [code = COLONOSCOPY SCREENING] Future Scheduled 2021-10-15 SHINGLES VACCINES (1 [facility] Test 19:26:49 of 2) [code = SHINGLES VACCINES (1 of 2)] Future Scheduled 2021-10-15 INFLUENZA VACCINE Method [facility] Hospital Test 19:26:49 [code = INFLUENZA VACCINE] Future Scheduled 2021-10-12 HEPATITIS B VACCINES [facility] Hospital Test 17:47:43 (1 of 3 - 3-dose series) [code = HEPATITIS B VACCINES (1 of 3 - 3-dose series)] Future Scheduled 2021-10-12 COVID-19 VACCINE (#1) [facility] Hospital Test 17:47:43 [code = COVID-19 VACCINE (#1)] Future Scheduled 2021-10-[address] [facility] Hospital Test 17:47:43 (procedure) [code = 083706507] Future Scheduled 2021-10-[address] [facility] Hospital Test 17:47:43 [code = COLONOSCOPY SCREENING] Future Scheduled 2021-10-12 SHINGLES VACCINES (1 [facility] Hospital Test 17:47:43 of 2) [code = SHINGLES VACCINES (1 of 2)] Future Scheduled 2021-10-12 INFLUENZA VACCINE Method [facility] Hospital Test 17:47:43 [code = INFLUENZA VACCINE] Future Scheduled 2012 SHINGLES VACCINES ([address] [facility] Test 00:00:00 of 2) [code = SHINGLES Medic al Center VACCINES (1 of 2)] Future Scheduled [address] [facility] Test 00:[facility]:00 (procedure) [code = Medical Center 05833923] Future Scheduled 1981 DTAP/TDAP/TD [facility]ACCINES [facility] 00:00[facility]00 (1 - Tdap) [code = Medical C enter DTAP/TDAP/TD VACCINES (1 - Tdap)] Future Scheduled 1980 HEPATITIS C [facility]CRE[facility] 00:00:00 [code = HEPATITIS C Medical Center SCREENING] Future Scheduled [address] [facility] Test 00:00:00 Counseling and Medical Cente r Screening (12+) [code = Tobacco Cessation Counseling and Screening (12+)] Future Scheduled 1963-06-28 COVID-19 VACCINE (#1) [facility] 00:00:00 [code = COVID-[address] VACCINE (#1)] Future Scheduled [address] [facility] Test 00:00:00 (combo) [code = CT Medical C enter Colonography (combo)] Future Scheduled [address] [facility] Test 00:[facility]:00 malignant neoplasm of Medica l Center colon (procedure) [code = 893389190] Future Scheduled [address] [facility] [facility] Test 00:00:00 malignant neoplasm of Medica l Center colon (procedure) [code = 220634084] Future Scheduled [address] [facility] [facility] Test 00:00:00 malignant neoplasm of Medica l Center colon (procedure) [code = 053551719] Future Scheduled [address] [facility] [facility] Test 00:00:00 malignant neoplasm of Medica l Center colon (procedure) [code = 324757165] Future Scheduled 1962 Sigmoidoscopy [facility]code [facility] Sigmoidoscopy] Medical Cente r Encounters Start End Encounter Admission Attending Care Care Encounter Source Date/Time Date/Time Type Type Clinicians Facility Department ID 2022-06-11 Outpatient 3 [id number] [place] [id number] [facility] 03:48:38 [facility] [place] 2022-06-10 Outpatient 3 [id number] ENCPL PM [id number] [facility] 02:10:29 04[facility] [place] 2022-06-09 Outpatient 3 [id number] [place] [id number] [facility] 10:37:19 0427 [facility] [place] 2022-06-01 Outpatient IZABELA SALAS [facility] TIFFANY [id number] Univers 14:27:32 IZABELA PHAM [facility] 2022-06-01 Outpatient 3 [id number] ENCPL REF [id number] [facility] 12:13:29 0419 [facility] [place] 2020-12-14 Emergency [facility] [id number] Univers 03:38:20 ity [facility] 2020-12-14 Emergency [facility] [id number] Univers 02:28:47 ity [facility] 2020-12-14 Emergency [facility] [id number] Univers [facility] Emergency [facility] [id number] Univers 15:19:05 [facility] 2020-02-02 Inpatient [facility] [id number] [facility] 19:02:00 2020-02-02 Inpatient [facility] [id number] [facility] 19:02:00 2022-09-15 2022-09-15 Outpatient R LAWRENCE PETERSON [facility] 1 [id number] Univers 10:00:00 10:00:00 LAWRENCE PETERSON [facility] 2022-08-03 2022-08-03 Outpatient R JERRICA [facility] [id number] Univers 10:15:00 10:15:00 ROBINA [facility] 2022-06-28 2022-06-28 Telephone Donna [facility] [id number] Univers 00:00:00 00:00:00 [facility] [id number] i ty of [place] 4.2.7.2.686 [facility] [id number] [address] OFFICE BUILDING 2022-06-27 2022-06-27 Outpatient R IZABELA PHAM [facility] [id number] Univers 13:15:00 13:15:00 IZABELA PHAM [facility] 2022-06-21 2022-06-23 Inpatient ER RHETT MOORE Oncology [id number] SLELaverne 08:54:00 18:00:00 [facility] 2022-06-21 2022-06-23 [facility] [id number] 08:54:00 18:00:00 Encounter FabienneSheblieMarquisKianna [facility] 2022-06-22 2022-06-22 Telephone Enmanuelanjum [facility] [id number] Univers 00:00:00 00:00:00 [facility] [id number] it y of José Miguel RICETON 4.2.7.2.686 Neal as JOEL?BLEA [id number] Sc alpaletty LOAIZA [address] [place] [address] MEDICAL OFFICE BUILDING 2022-06-16 2022-06-16 Office [facility] [id number] Univers 11:30:00 11:45:00 Visit [facility] [id number] [place] [id number] [address] OFFICE [facility] 2022-06-16 2022-06-16 Outpatient R LAWRENCE PETERSON [facility] 1 [id number] Univers 11:30:00 11:30:00 LAWRENCE PETERSON [facility] 2022-06-16 2022-06-16 [facility]phone [facility] [id number] Univers 00:00:00 00:00:00 [facility] [id number] [place] [id number] [address] OFFICE BUILDING 2022-06-14 2022-06-14 Telephone [facility] [id number] Univers 00:00:00 00:00:00 [facility] [id number] [place] [id number] [address] OFFICE BUILDING 2022-06-08 2022-06-08 Telephone LAKESHIA Pham [id number] Univers 00:00:00 00:00:00 Izabela BEARD [id number] i ty of HOSPITAL 4.2.7.2.686 Neal as [id number] [address] 2022-06-08 2022-06-08 Transition ANASTASIIA Calderon [id number] Univers 00:00:00 00:00:00 of Care Elyssasuma BENNETT 350.1.13.10 i ty of [place] [id number] [facility] [address] 2022-05-26 2022-06-07 [facility] [id number] Univers 15:42:00 15:09:00 [facility] 2022-05-26 2022-06-07 [facility] JodiMeche soto 1.2.840.1 [id number] Univers 15:42:00 15:09:00 Encounter Luis Huerta [id number] ity of [facility] 4.2.7.2.686 Lance Swift [id number] Medical Cris, Allan [address] 2022-06-07 2022-06-07 Out[facility] [id number] Univers 13:00:00 13:00:00 [facility] 2022-06-03 2022-06-03 Surgery TYE Peterson [id number] Univers 07:00:00 09:33:00 Lawrence BEARD 350.1.13.10 i ty of [facility] 4.2.7.2.686 Neal as [id number] [facility] [address] 2022-06-02 2022-06-02 Telephone [facility] [id number] Univers 00:00:00 00:00:00 Izabela TORREZ 350.1.13.10 [place] [id number] Sc edison ARENAS [address] [facility] 2022-06-01 2022-06-01 Telephone [facility] 1.2.840.114 [id number] Univers 00:00:00 00:00:00 [facility] 350.1.13.10 it y of José Miguel TORREZ 4.2.7.2.686 Neal as JOEL?BLEA [id number] Sc dical KNEY [address] MEDICAL OFFICE BUILDING 2022-05-30 2022-05-30 Surgery TYE Lynch [id number] Univers 20:00:00 22:46:00 Allan VARGASY 350.1.13.10 it y of HOSPITAL 4.2.7.2.686 Neal as [id number] [facility] [address] 2022-05-29 2022-05-29 Surgery TYE Lynch 1.2.840.114 [id number] Univers 07:20:00 10:33:00 Allan CHIRAG 350.1.13.10 it y of HOSPITAL 4.2.7.2.686 Neal as [id number] [facility] [address] [place] 2022-05-26 2022-05-26 Outpatient R JERRICA [facility] [id number] Univers 09:45:00 09:45:00 ROBINA [facility] 2022-05-24 2022-05-24 Outpatient R ROGER [facility] [id number] Univers 00:00:00 00:00:00 WOO [facility] 2022-05-24 2022-05-24 Prep [facility] 1.2.840.114 [id number] Univers 00:00:00 00:00:00 Surgery Izabela TORREZ 350.1.13.10 ity [facility] 4.2.7.2.[place] [id number] Sc dical [facility] [address] BUILDING 2022-05-23 2022-05-23 Emergency X IBIKUNLE, [facility] ERT [id number] Univers 16:40:00 18:12:00 FOLUSHO ity [facility] 2022-05-23 2022-05-23 Emergency X IBIKUNLE, [facility] ERT [id number] Univers 16:40:00 18:12:00 FOLUSHO ity [facility] 2022-05-23 2022-05-23 Emergency Ibikunle, [facility] 1.2.840.114 [id number] Univers 16:40:00 18:12:00 Rodrigo TORREZ 350.1.13.10 ity of [place] 4.2.7.2.686 [facility] [id number] [facility] [address] 2022-05-23 2022-05-23 Emergency [facility] [id number] Univers 03:49:00 06:12:00 Carlos TORREZ 350.1.13.10 ity of [facility] 4.2.7.2.686 [facility] [id number] [facility] [address] 2022-05-23 2022-05-23 [facility] 1.2.840.114 [id number] Univers 00:00:00 00:00:00 [facility] 350.1.13.10 it y of José Miguel [place] 4.2.7.2.686 Neal as JOEL?BLEA [id number] Sc edison RAOEY 044 [facility] OFFICE [facility] 2022-05-19 2022-05-19 Outpatient R VERO [facility] [id number] Univers 09:30:00 10:37:40 VERO [facility] 2022-05-19 2022-05-19 Office [facility] 1.2.840.114 [id number] Univers 09:30:00 10:37:40 Visit Izabela SHAN 350.1.13.10 ity of [facility] 4.2.7.2.686 [facility] NorthwestESS [id number] Sc edison ARENAS 188 [facility] 2022-05-19 2022-05-19 Orders Doctor ASHER 1.2.840.114 [id number] Univers 00:00:00 00:00:00 Only Unassigned, CHIRAG 350.1.13.10 ity of [place] [facility] 4.2.7.2.686 Neal as [phone] [facility] [address] 2022-05-17 2022-05-17 Outpatient R ROGER [facility] [id number] Univers 08:00:00 08:57:35 WOO [facility] 2022-05-17 2022-05-17 Orders Doctor ASHER 1.2.840.114 [id number] Univers 00:00:00 00:00:00 Only Unassigned, CHIRAG 350.1.13.10 ity of [place] [facility]OSPITAL 4.2.7.2.686 Neal as [phone] [address] 2022-05-16 2022-05-16 Orders Doctor LAKESHIA 1.2.840.114 [id number] Univers 00:00:00 00:00:00 Only Unassigned, CHIRAG 350.1.13.10 ity of [place] [facility]PITAL 4.2.7.2.686 Neal as [id number] [address] 2022-05-05 2022-05-05 Outpatient R [facility] [id number] Univers 10:00:00 10:00:00 General acute hospital 2022-05-05 2022-05-05 Telephone [facility] 1.2.840.114 [id number] Univers 00:00:00 00:00:00 [facility] 350.1.13.10 it y of [place] [facility] 4.2.7.2.686 Neal as JOEL?BLEA [phone] [address] MEDICAL OFFICE [facility] 2022-05-04 2022-05-04 Orders Doctor LAKESHIA 1.2.840.114 [id number] Univers 00:00:00 00:00:00 Only Unassigned, CHIRAG 350.1.13.10 ity of [place] [facility]OSPITAL 4.2.7.2.686 Neal as [phone] [address] 2022-05-03 2022-05-03 Office [facility] 1.2.840.114 [id number] Univers 09:45:00 10:15:00 Visit [facility] 350.1.13.10 it y of [place] 4.2.7.2.686 Neal as JOEL?BLEA [id number] [address] MEDICAL OFFICE BUILDING 2022-05-03 2022-05-03 Outpatient R [facility] [id number] Univers 09:45:00 09:45:00 ROBINA [facility] 2022-04-22 2022-04-22 Orders Doctor LAKESHIA Montilla.2.840.114 [id number] Univers 00:00:00 00:00:00 Only Unassigned, CHIRAG 350.1.13.10 ity of [place] [facility]OSPITAL 4.2.7.2.686 Neal as [phone] [facility] [address] 2022-04-22 2022-04-22 Telephone [facility] 1.2.840.114 [id number] Univers 00:00:00 00:00:00 Strahil T [place] 350.1.13.10 ity of [facility] 4.2.7.2.686 [place] [phone] [address] 2022-04-13 2022-04-13 [facility] 1.2.856.076 [id number] Univers 09:30:00 10:00:00 Visit Strarayol Jeronimo [place] 350.1.13.10 ity of [place] 4.2.7.2.[place] [id number] [address] 2022-04-13 2022-04-13 Outpatient R DAWSON CHOUDHURY [facility] [id number] Univers 09:30:00 09:30:00 ATASANGITAOVMARYLINL ity of [facility] 2022-04-13 2022-04-13 Orders Doctor LAKESHIA 1.2.840.[id number] [place] [address] 00:00:00 00:00:00 Only Unassigned, CHIRAG 350.1.13.10 ity of [place] [facility]OSPITAL 4.2.7.2.686 Neal as [id number] [facility] [address] 2022-04-13 2022-04-13 [facility] 1.2.840.114 [id number] Univers 00:00:00 00:00:00 Strahil T MULTISPEC 350.1.13.10 ity of [place] 4.2.7.2.686 [place] [phone] [facility] AND JONAH [address] [place] [address] [facility] 2022-04-07 2022-04-07 Office [facility] 1.2.840.114 [id number] Univers 10:30:00 11:02:20 Visit [facility] 350.1.13.10 it y of José Miguel TORREZ 4.2.7.2.686 Neal as JOEL?BLEA [phone] [address] MEDICAL OFFICE [facility] 2022-04-07 2022-04-07 Outpatient R JERRICA [facility] [id number] Univers 10:30:00 10:30:00 ROBINA ity of [facility] 2022-04-06 2022-04-06 Telephone [facility] 1.2.840.114 [id number] Univers 00:00:00 00:00:00 [facility] 350.1.13.10 it y of José Miguel [place] 4.2.7.2.686 Neal as JOEL?BLEA [id number] [address] MEDICAL OFFICE [facility] 2022-04-02 2022-04-02 Spreader Operator 1, [facility] Sleep Lab Bed [facility] 1. 2.840.114 [id number] Univers 20:00:00 22:30:00 Visit Dawson Choudhury 350.1.13. 10 ity of [facility] 4.2.7.2.686 [facility] [phone] [facility] [address] 2022-04-02 2022-04-02 Outpatient R DAWSON CHOUDHURY [facility] [id number] Univers 20:00:00 20:00:00 DAWSON CHOUDHURY ity [facility] 2022-04-02 2022-04-02 Orders Doctor LAKESHIA 1.2.840.114 [id number] Univers 00:00:00 00:00:00 Only Unassigned, CHIRAG 350.1.13.10 ity of [place] [facility] 4.2.7.2.686 Neal as [phone] [facility] [address] 2022-03-24 2022-03-24 [facility] 1.2.840.114 10 [id number] Univers 08:01:23 23:59:00 Encounter SHAN 350.1.13.10 ity of [facility] 4.2.7.2.686 [facility] [id number] [facility] [address] 2022-03-24 2022-03-24 Outpatient R SOFI [facility] [id number] Univers 07:57:08 08:00:00 DELROY ity of [facility] 2022-03-24 2022-03-24 [facility] 1.2.840.114 [id number] Univers 07:57:08 08:00:00 Encounter Delroy TORREZ 350.1.13.10 ity of [place].2.7.2.[place] [id number] [facility] [address] 2022-02-16 2022-02-16 Telephone [facility] 1.2.840.114 [id number] Univers 00:00:00 00:00:00 [facility] 350.1.13.10 it y of José Miguel TORREZ 4.2.7.2.686 Neal as JOEL?BLEA [phone] [address] MEDICAL OFFICE BUILDING 2022-02-15 2022-02-15 Orders Doctor ASHER 1.2.840.114 [id number] Univers 00:00:00 00:00:00 Only Unassigned, CHIRAG 350.1.13.10 ity of [place] [facility]OSPITAL 4.2.7.2.686 Neal as [id number] [address] 2022-02-03 2022-02-03 Orders Doctor LAKESHIA 1.2.840.114 [id number] Univers 00:00:00 00:00:00 Only Unassigned, CHIRAG 350.1.13.10 ity of [place] [facility]OSPITAL 4.2.7.2.686 Neal as [phone] [address] 2022-02-02 2022-02-02 Office [facility] 1.2.840.114 [id number] Univers 09:30:00 09:45:00 Visit [facility] 350.1.13.10 it y of José Miguel [facility] 4.2.7.2.686 Neal as JOEL?BLEA [phone] [address] MEDICAL OFFICE BUILDING 2022-02-02 2022-02-02 Outpatient R [facility] [id number] Univers 09:30:00 09:40:22 ROBINA ity [facility] 2022-01-17 2022-01-17 Orders Doctor LAKESHIA Montilla.2.840.114 [id number] Univers 00:00:00 00:00:00 Only Unassigned, CHIRAG 350.1.13.10 ity of [place] [facility]PITAL 4.2.7.2.686 Neal as [phone] [address] 2022-01-03 2022-01-03 Office Jrerica [facility] 1.2.840.114 [id number] Univers 09:15:00 09:30:00 Visit [facility] 350.1.13.10 it y of José Miguel [facility] 4.2.7.2.686 Neal as JOEL?BLEA [phone] Sc dical KNEY [address] MEDICAL OFFICE [facility] 2022-01-03 2022-01-03 Outpatient R JERRICA [facility] [id number] Univers 09:15:00 09:15:00 ROBINA ity [facility] 2021-12-08 2021-12-08 [facility] 1.2.500.969 [id number] Univers 10:20:00 10:40:00 Visit Dawson TORREZ 350.1.13.10 ity of [place].2.7.2.686 [place] [phone] Sc edison ARENAS 085 [facility] 2021-12-08 2021-12-08 Outpatient R BINU CHOUDHURYNJHillary [facility] [id number] Univers 10:20:00 10:20:00 [facility] 2021-12-08 2021-12-08 Outpatient R BINU CHOUDHURYNJHillary [facility] [id number] Univers 10:20:00 10:20:00 ATANASOV, [facility] 2021-12-08 2021-12-08 Orders Doctor SAHER 1.2.840.114 [id number] Univers 00:00:00 00:00:00 Only Unassigned, CHIRAG 350.1.13.10 ity of [place] [facility]ITAL 4.2.7.2.686 Neal as [phone] [address] 2021-12-02 2021-12-02 [facility] 1.2.840.114 [id number] Univers 11:00:00 11:15:00 Visit [facility] 350.1.13.10 it y of José Miguel [facility] 4.2.7.2.686 Neal as JOEL?[facility] [phone] Sc edison ROSA [address] [place] [address] MEDICAL OFFICE BUILDING 2021-12-02 2021-12-02 Outpatient R JERRICA [facility] [id number] Univers 11:00:00 11:00:00 ROBINA [facility] 2021-11-25 2021-11-25 Outpatient R MACEYBINUSINGH [facility] [id number] Univers 20:00:00 20:00:00 BONISANGITAJALEEL MARYLINHillary itkirit [facility] 2021-11-22 2021-11-22 Outpatient R MACEY BINUNJHillary [facility] [id number] Univers 10:15:00 10:15:00 SARABINU MARMOLEJONJHillary [facility] 2021-11-04 2021-11-04 Spreader Operator Agapito, [facility] Sleep Lab [facility] 1.2 .840.114 [id number] Univers 10:00:00 10:15:00 Visit Dawson Choudhury DWAYNEDAVIDE 350.1.13. 10 ity of [place] 4.2.7.2.686 [place] [facility] [phone] [address] 2021-11-04 2021-11-04 Outpatient R MACEY BINUSINGH [facility] [id number] Univers 10:00:00 10:00:00 SARADAWSON MARMOLEJO [facility] 2021-11-04 2021-11-04 Orders Doctor ASHER 1.2.840.114 [id number] Univers 00:00:00 00:00:00 Only Unassigned, CHIRAG 350.1.13.10 ity of [place] [facility] 4.2.7.2.686 Neal as [id number] [address] 2021-11-02 2021-11-02 Outpatient R JERRICA [facility] [id number] Univers 09:30:00 10:02:11 ROBINA [facility] 2021-11-02 2021-11-02 Office [facility] 1.2.840.114 [id number] Univers 09:30:00 09:45:00 Visit [facility] 350.1.13.10 it y of [place] 4.2.7.2.686 Neal as JOEL?BLEA [phone] [address] MEDICAL OFFICE [facility] 2021-11-02 2021-11-02 Telephone [facility] 1.2.840.114 [id number] Univers 00:00:00 00:00:00 Strahil T MULTISPEC 350.1.13.10 ity of [place] 4.2.7.2.686 [place] CENTER [id number] [facility] AND [address] [facility] 2021-10-07 2021-10-07 Telephone [facility] 1.2.840.114 [id number] [facility] 00:00:00 00:00:00 [facility] 350.1.13.10 it y of [place] 4.2.7.2.686 Neal as JOEL?BLEA [phone] [address] OFFICE [facility] 2021-10-05 2021-10-05 Outpatient R [facility] [id number] [facility] 14:15:00 14:43:53 ROBINA ity [facility] 2021-10-05 2021-10-05 Office [facility] 1.2.840.114 [id number] [facility] 14:15:00 14:30:00 Visit [facility] 350.1.13.10 it y of [place] 4.2.7.2.686 Neal as JOEL?BLEA [phone] [address] MEDICAL OFFICE [facility] 2021-10-05 2021-10-05 Outpatient R [facility] [id number] Univers 14:15:00 14:15:00 ROBINA ity [facility] 2021-09-22 2021-09-22 Office [facility] 1.2.572.748 [id number] [facility] 13:40:00 14:00:00 Visit Strahil T [place] 350.1.13.10 ity of [place] 4.2.7.2.686 [place] [phone] [address] BUILDING 2021-09-22 2021-09-22 Outpatient R BINU CHOUDHURYNJHillary [facility] [id number] Univers 13:40:00 13:40:00 DAWSON CHOUDHURY kirit [facility] 2021-09-22 2021-09-22 Outpatient R BINU CHOUDHURYNJHillary [facility] [id number] Univers 13:40:00 13:40:00 BINU CHOUDHURYNJHillary kirit [facility] 2021-09-21 2021-09-21 Letter Andrew, LAKESHIA 1.2.840.114 [id number] Univers 00:00:00 00:00:00 (Out) Erma BEARD 350.1.13.10 it y of [facility] 4.2.7.2.686 Neal as [phone] [address] 2021-09-20 2021-09-20 Outpatient R [facility] [id number] Univers 15:00:00 15:33:41 MAGDALENE hooks o f [facility] 2021-09-20 2021-09-20 Urgent Joel [facility] 1.2.840. 114 [id number] Univers 15:00:00 15:33:41 [facility] 350.1.13.10 ity of [place] 4.2.7.2.686 Neal as JOEL?BLEA [phone] [facility] [address] MEDICAL OFFICE BUILDING 2021-09-20 2021-09-20 Outpatient R [facility] [id number] Univers 15:00:00 15:33:41 MAGDALENE hooks o [facility] 2021-09-15 2021-09-15 Outpatient R ENMANUELANJUMMETROHEALTH [facility] [id number] Univers 11:15:00 11:37:11 ROBINA [facility] 2021-09-15 2021-09-15 Office [facility] 1.2.840.114 [id number] Univers 11:15:00 11:30:00 Visit [facility] 350.1.13.10 it y of José Miguel [place] 4.2.7.2.686 Neal as JOEL?BLEA [phone] Sc edison LOAIZA [address] [place] [address] MEDICAL OFFICE [facility] 2021-09-15 2021-09-15 Outpatient R JERRICA [facility] [id number] Univers 11:15:00 11:15:00 ROBINA ity [facility] 2021-06-30 2021-06-30 Orders Doctor LAKESHIA 1.2.840.114 [id number] Univers 00:00:00 00:00:00 Only Unassigned, CHIRAG 350.1.13.10 ity of [facility] 4.2.7.2.686 Neal as [phone] [facility] [address] 2021-05-24 2021-05-24 [place] [facility] 1.2.840.114 [id number] Univers 00:00:00 00:00:00 [facility] 350.1.13.10 it y of José Miguel [facility] 4.2.7.2.686 Neal as JOEL?BLEA [phone] Sc edison [address] MEDICAL OFFICE [facility] 2021-05-11 2021-05-11 Outpatient Zeke BECERRIL [facility] [id number] Univers 11:45:00 11:45:00 ROBINA [facility] 2021-03-31 2021-04-02 Emergency X SYD IDNEDA ERT [id number] Univers 09:05:00 07:46:00 CARLOS ity [facility] 2021-03-31 2021-04-02 Emergency Ladonna Bryant [facility] 1.2.8 40.114 [id number] Univers 09:05:00 07:46:00 Carlos Corbin 350.1.13.10 ity of [place].7.2.[place] [phone] [facility] [address] 2020-12-21 2020-12-21 Emergency X BRIDGET IDNEDA ERT [id number] Univers 12:12:00 16:04:00 MICHAEL ity [facility] 2020-12-21 2020-12-21 Emergency [facility] 1.2.300.836 [id number] Univers 12:12:00 16:04:00 Michael TORREZ 350.1.13.10 i ty of [facility] 4.2.7.2.686 [place] [phone] [address] 2020-12-10 2020-12-10 Outpatient Zeke [facility]AM[facility]RO[facility] [id number] Univers 09:00:00 09:00:00 ROBINA kirit [facility] 2020-12-08 2020-12-08 Emergency [facility] 1.2.616.910 [id number] Univers 05:45:00 08:15:00 Carlos Riceton 350.1.13.10 ity of [place] 4.2.7.2.686 [place] [id number] [address] 2020-12-08 2020-12-08 Emergency [facility] ERT [id number] Univers 05:45:00 08:15:00 [facility]Jeff[facility] Centerkirit [facility] 2020-11-10 2020-11-10 Outpatient [facility] [id number] Univers 13:10:00 13:10:00 itkirit [facility] 2020-11-10 2020-11-10 Outpatient Zeke BECERRILMETROHE[facility] [id number] Univers 09:30:00 10:05:31 ROBINA kirit [facility] 2020-11-10 2020-11-10 Office [facility] 1.2.840.114 [id number] Univers 09:22:11 09:52:11 Visit [facility] 350.1.13.10 it y of [place] 4.2.7.2.686 Neal as Joel?Blea [phone] [address] Medical Office Building 2020-09-19 2020-09-19 Outpatient YVON_[facility] 456 7- Presto 03:24:00 03:24:00 URIEL_ [address] Medica l Group 2020-09-04 2020-09-04 Orders Doctor LAKESHIA 1.2.840.114 [id number] Univers 00:00:00 00:00:00 Only Unassigned, CHIRAG 350.1.13.10 ity of [place] [facility] 4.2.7.2.686 Neal as [phone] [facility] [address] 2020-08-22 2020-08-22 Outpatient [facility] 456 [place] 05:19:00 05:19:00 E__ 51424 Medica l Group 2020-08-17 2020-08-17 Outpatient Zeke LOPEZ [facility] [id number] Univers 09:00:00 09:00:00 WONDIFUL ity o f [facility] 2020-08-06 2020-08-07 [facility] Edgard Leo 1.2.840.1 14 [id number] [facility] 13:41:00 23:00:00 Encounter Magali Curtis 350.1.13.10 ity [facility] 4.2.7.2.686 Neal as [id number] [facility] [address] 2020-08-03 2020-08-05 Emergency Tde Lion 1.2.840. 114 [id number] [facility] 08:54:00 16:11:00 Allen Maravilla 350.1.13.10 ity [facility] 4.2.7.2 .686 [place] [phone] [facility] [address] 2020-07-31 2020-07-31 [facility] 1.2.840.114 [id number] Univers 08:39:00 14:39:00 Ladonna Torrez 350.1.13.10 ity [facility] 4.2.7.2.686 [facility] [id number] [facility] [address] 2020-07-25 2020-07-25 Outpatient BENREY[facility] 456 [place] 06:29:00 06:29:00 E__ 51360 Medica l Group 2020-07-24 2020-07-24 [facility] 456 [place] 11:00:00 11:00:00 JEVON 21850 Medica l Group 2020-06-08 2020-06-08 Emergency [facility] 1.2.768.728 [id number] 6577 [facility] 13:48:00 17:01:00 Ted Torrez 350.1.13.10 i ty of [place].2.7.2.686 [place] [id number] [facility] [address] 2020-01-28 2020-01-28 Outpatient JAM, [facility] [id number] [address] [place] [address] 00:00:00 00:00:00 [facility] 2020-01-20 2020-01-20 Outpatient EGBULEMARK, [facility] [id number] [place] 11:36:00 16:26:30 [facility] 2019-10-29 2019-10-31 Inpatient PEORIA, [facility] 089 [id number] 24 [place] 00:00:00 00:00:00 YASMINE 164 [address] thodi 2019-03-12 2019-03-12 [facility] 1.2.840.114 [id number] Univers 14:43:00 23:59:00 Encounter [facility] 350.1.13.10 ity [place] [id number] [facility] [address] 2019-03-11 2019-03-12 [facility] 1.2.840.114 [id number] Univers 15:17:00 17:21:00 Encounter [facility] 350.1.13.10 ity of [place].2.[place] [phone] [facility] [address] 2019-03-11 2019-03-12 Office Surgery, Td General [facility] 1.2.8 40.114 [id number] Univers 09:09:17 08:54:29 Visit Faisal [facility] 350.1.13.10 ity of [place] 4.2.7.2.686 [place] [id number] [facility] [address] 2018-10-31 2018-10-31 Office Surgery, Td Vascular [facility] 1.2. 840.114 [id number] Univers 08:41:29 09:11:29 Visit Ramana Padron [facility] 350.1.13.10 ity [place] [id number] [facility] [address] 2014-07-22 2014-07-22 [facility] [id number] Memoria 17:51:00 21:57:00 Emergency r [place] 00 l [facility] 2014-07-22 2014-07-22 [facility] [id number] Memoria 17:51:00 21:57:00 Emergency r [place] 00 l [facility] 2014-07-22 2014-07-22 Outpatient Griffin, 2.16.840. 2.16.840.1 . [id number] 12:51:00 16:57:00 Christy [id number]. 691190.3.61 00 Radhika 3.615.0.1 5.0.101 01 Results Test Description Test Time Test Comments Results Result Comments Source SEROTONIN RELEASE ASSAY 2022-06-28 14:13:16 Test Item Value Reference Range Interpretation Comme nts SCAN RESULT (test code = 7352187) UFH LOW DOSE 0.1 (2) (BEAKER) (test code = 2593) See scanned report. See scanned reportU/S, RENAL, [id number] 17:23:00Reason for exam:->hydronephrosis [facility] : 1960 Sex: MFINAL REPORT U/S, RENAL, COMPLETE CLINICAL HISTORY: hydronephrosis COMPARISON: CT abdomenpelvis 06/17/2022 TECHNIQUE: Real time grayscale and color Doppler imaging of the kidneys and urinary bladder was performed. Pre and postvoid images of the urinary bladder obtained. FINDINGS: Right kidney:Size = 10.1 x 4.7 x 5.5 cmCortical thickness: NormalEchogenicity: NormalCollecting system: No hydronephrosisOther findings: None Left kidney:Size = 11.1 x 5.8 x 5.3 cmCortical thickness: NormalEchogenicity: NormalCollecting system: No hydronephrosisOther findings: None Urinary bladder: Normally distended prevoid with a volume of 155 mL. Normal post void residual of 5 mm IMPRESSION: Normal renal ultrasound. No hydronephrosis. Normal post void residual urinary bladder volume Signed: Susan Dumonteport Verified Date/Time: 06/23/2022 17:23:41 CBC W/PLT COUNT & AUTO [id number] 05:58:22 Test Item Value Reference Range Interpretation Comments WHITE BLOOD CELL COUNT (BEAKER) 4.5 K/ L 3.5-10.5 (test code = 775) RED BLOOD CELL COUNT (BEAKER) 3.29 M/ L 4.63-6.08 L (test code = 761) HEMOGLOBIN (BEAKER) (test code = 9.2 GM/DL 13.7-17.5 L 410) HEMATOCRIT (BEAKER) (test code = 29.2 % 40.1-51.0 L 411) MEAN CORPUSCULAR VOLUME (BEAKER) 89 fL 79-92 (test code = 753) MEAN CORPUSCULAR HEMOGLOBIN 28.0 pg 25.7-32.2 (BEAKER) (test code = 751) MEAN CORPUSCULAR HEMOGLOBIN CONC 31.5 GM/DL 32.3-36.5 L (BEAKER) (test code = 752) RED CELL DISTRIBUTION WIDTH 16.1 % 11.6-14.4 H (BEAKER) (test code = 412) PLATELET COUNT (BEAKER) (test code 76 K/CU MM 150-450 L = 756) MEAN PLATELET VOLUME (BEAKER) 10.6 fL 9.4-12.4 (test code = 754) NUCLEATED RED BLOOD CELLS (BEAKER) 0 /100 WBC 0-0 (test code = 413) NEUTROPHILS RELATIVE PERCENT 53 % (BEAKER) (test code = 429) LYMPHOCYTES RELATIVE PERCENT 27 % (BEAKER) (test code = 430) MONOCYTES RELATIVE PERCENT 12 % (BEAKER) (test code = 431) EOSINOPHILS RELATIVE PERCENT 6 % (BEAKER) (test code = 432) BASOPHILS RELATIVE PERCENT 1 % (BEAKER) (test code = 437) NEUTROPHILS ABSOLUTE COUNT 2.37 K/ L 1.78-5.38 (BEAKER) (test code = 670) LYMPHOCYTES ABSOLUTE COUNT 1.23 K/ L 1.32-3.57 L (BEAKER) (test code = 414) MONOCYTES ABSOLUTE COUNT (BEAKER) 0.54 K/ L 0.30-0.82 (test code = 415) EOSINOPHILS ABSOLUTE COUNT 0.28 K/ L 0.04-0.54 (BEAKER) (test code = 416) BASOPHILS ABSOLUTE COUNT (BEAKER) 0.05 K/ L 0.01-0.08 (test code = 417) IMMATURE GRANULOCYTES-RELATIVE 0.40 % 0.00-1.00 PERCENT (BEAKER) (test code = 2801) U/S, ABDOMINAL, [id number] 16:48:00Abdomen limited area? Add comment if clarification is needed.->Right upper quadrantReason for exam:->elevated Tbili - please evaluate [facility] : 1960 Sex: MFINAL REPORT Right Upper Quadrant Ultrasound History: Elevated total bilirubin Comparison: CT abdomen and pelvis performed on 06/21/2022 Findings:Unremarkable echotexture and contour of liver.No hepatic mass or intrahepatic biliary dilation. Gallbladder is contracted. No gallstones or pericholecystic fluid is visualized. No sonographic Anand's sign. Common bile duct measures 2.9mm. The main portal vein appears patent, with expected hepatopedal flow. The main portal vein measures9.3mm in diameter. Pancreas not well seen due to overlying bowel gas. Right kidney demonstrates no hydronephrosi s, shadowing calculus, or mass lesion. Right kidney measures 10.3 x 5.0 x 4.9cm. Impression:Unremarkable right upper quadrant ultrasound. Signed: [facility] Date/Time: :48:01 SERUM [id number] 16:04:04 Test Item Value Reference Range Interpretation Comments IMMUNOGLOBULIN A (IGA) 146 mg/dL 63-484 (BEAKER) (test code = 639) IMMUNOGLOBULIN G (IGG) 704 mg/dL 540-1822 (BEAKER) (test code = 427) IMMUNOGLOBULIN M (IGM) 72 mg/dL 22-293 (BEAKER) (test code = 638) SERUM IT ID [id number](BEAKER) No monoclonal (test code = 3817) protein detected. [facility]-"[id number] Kareenialaurie Lawler, " (BEAKER) (test code = M.DMinda 6984) Clinical Propulsion Systems Engineer - SFOperator ID - ADMINPROTEIN ELECTROPHORESIS, SERUM WITH REFLEX TO [id number] 16:03:41 Test Item Value Reference Range Interpretation Comments ALBUMIN FRACTION 3.6 gm/dL 3.5-5.5 (BEAKER) (test code = 405) ALPHA 1 FRACTION 0.5 gm/dL 0.2-0.4 H (BEAKER) (test code = 389) ALPHA 2 FRACTION 1.0 gm/dL 0.4-1.0 (BEAKER) (test code = 390) BETA FRACTION (BEAKER) 0.8 gm/dL 0.5-1.1 (test code = 392) GAMMA GLOBULIN FRACTION 0.7 gm/dL 0.7-1.6 (BEAKER) (test code = 391) INTERPRETATION-119 Alpha-1 globulin (BEAKER) (test code = increased. 2615) Non-specific change. [id number] [facility] Lisaari, (BEAKER) (test code = M.D. 1056) PROTEIN TOTAL SERUM, 6.6 gm/dL 6.0-8.3 SPEP (BEAKER) (test code = 4170) Clinical Propulsion Systems Engineer - SFOperator ID - ADMINOperator ID - ADMHEPARIN ANTIBODY 2022-06-22 12:12:51 Test Item Value Reference Range Interpretation Comments HEPARIN ANTIBODY Positive-See Serotonin Negative A (BEAKER) (test code = Release Assay for 646) Confirmation HEPARIN ANTIBODY OD 3.000 <0.400 H (BEAKER) (test code = 2659) 4T TOTAL SCORE 5 (BEAKER) (test code = 2661) [id number] 05:50:16 Test Item Value Reference Range Interpretation Comments HAPTOGLOBIN (BEAKER) (test code = 308 mg/dL 14-258 H 366) [employer]tier ID - ADMINOperator ID - ADMINVITAMIN [id number] 05:20:33 Test Item Value Reference Range Interpretation Comments VITAMIN B12 (BEAKER) (test code = 359 pg/mL 213-816 774) [employer] ID - [id number] 05:20:33 Test Item Value Reference Range Interpretation Comments FERRITIN (BEAKER) (test code = 415.83 ng/mL 5.00-275.00 H 361) [employer]tier ID - MARCOIRON, TIBC, % SAT. (WITHOUT FERRITIN)2022-06-22 04:59:45 Test Item Value Reference Range Interpretation Comments IRON (BEAKER) (test code = 547) 38.0 ug/dL 40.0-160.0 L TOTAL IRON BINDING CAPACITY 311 ug/dL 250-450 (BEAKER) (test code = 769) IRON % SATURATION (2) (BEAKER) 12 % 20-55 L (test code = 2590) [employer]tier ID - MARCORETICULOCYTE [id number] 04:53:40 Test Item Value Reference Range Interpretation Comments RETICULOCYTE COUNT PCT (BEAKER) (test 5.7 % 0.5-1.8 H code = 575) Puttier ID - [id number] W/PLT COUNT & AUTO [id number] 04:53:36 Test Item Value Reference Range Interpretation Comments WHITE BLOOD CELL COUNT (BEAKER) 3.9 K/ L 3.5-10.5 (test code = 775) RED BLOOD CELL COUNT (BEAKER) 3.13 M/ L 4.63-6.08 L (test code = 761) HEMOGLOBIN (BEAKER) (test code = 8.8 GM/DL 13.7-17.5 L 410) HEMATOCRIT (BEAKER) (test code = 27.6 % 40.1-51.0 L 411) MEAN CORPUSCULAR VOLUME (BEAKER) 88 fL 79-92 (test code = 753) MEAN CORPUSCULAR HEMOGLOBIN 28.1 pg 25.7-32.2 (BEAKER) (test code = 751) MEAN CORPUSCULAR HEMOGLOBIN CONC 31.9 GM/DL 32.3-36.5 L (BEAKER) (test code = 752) RED CELL DISTRIBUTION WIDTH 16.0 % 11.6-14.4 H (BEAKER) (test code = 412) PLATELET COUNT (BEAKER) (test code 70 K/CU MM 150-450 L = 756) MEAN PLATELET VOLUME (BEAKER) 11.2 fL 9.4-12.4 (test code = 754) NUCLEATED RED BLOOD CELLS (BEAKER) 1 /100 WBC 0-0 H (test code = 413) NEUTROPHILS RELATIVE PERCENT 58 % (BEAKER) (test code = 429) LYMPHOCYTES RELATIVE PERCENT 25 % (BEAKER) (test code = 430) MONOCYTES RELATIVE PERCENT 10 % (BEAKER) (test code = 431) EOSINOPHILS RELATIVE PERCENT 4 % (BEAKER) (test code = 432) BASOPHILS RELATIVE PERCENT 1 % (BEAKER) (test code = 437) NEUTROPHILS ABSOLUTE COUNT 2.28 K/ L 1.78-5.38 (BEAKER) (test code = 670) LYMPHOCYTES ABSOLUTE COUNT 0.99 K/ L 1.32-3.57 L (BEAKER) (test code = 414) MONOCYTES ABSOLUTE COUNT (BEAKER) 0.40 K/ L 0.30-0.82 (test code = 415) EOSINOPHILS ABSOLUTE COUNT 0.17 K/ L 0.04-0.54 (BEAKER) (test code = 416) BASOPHILS ABSOLUTE COUNT (BEAKER) 0.05 K/ L 0.01-0.08 (test code = 417) IMMATURE GRANULOCYTES-RELATIVE 0.50 % 0.00-1.00 PERCENT (BEAKER) (test code = 2801) HEPATIC FUNCTION [id number] 04:48:30 Test Item Value Reference Range Interpretation Comments TOTAL PROTEIN (BEAKER) (test code = 7.2 gm/dL 6.0-8.3 770) ALBUMIN (BEAKER) (test code = 1145) 4.2 g/dL 3.5-5.0 BILIRUBIN TOTAL (BEAKER) (test code 0.9 mg/dL 0.2-1.2 = 377) BILIRUBIN DIRECT (BEAKER) (test 0.4 mg/dL 0.1-0.5 code = 706) ALKALINE PHOSPHATASE (BEAKER) (test 95 U/L 40-150 code = 346) AST (SGOT) (BEAKER) (test code = 18 U/L 5-34 353) ALT (SGPT) (BEAKER) (test code = 19 U/L 6-55 347) Puttier ID - ADMINLACTATE DEHYDROGENASE (LDH)2022-06-22 04:48:30 Test Item Value Reference Range Interpretation Comments LACTATE DEHYDROGENASE (BEAKER) (test 271 U/L 125-220 H code = 635) Puttier ID - ADMINBASIC METABOLIC [id number] 04:48:29 Test Item Value Reference Range Interpretation Comments SODIUM (BEAKER) 137 meq/L 136-145 (test code = 381) POTASSIUM 3.6 meq/L 3.5-5.1 (BEAKER) (test code = 379) CHLORIDE (BEAKER) 105 meq/L 98-107 (test code = 382) CO2 (BEAKER) 19 meq/L 22-29 L (test code = 355) BLOOD UREA 8 mg/dL 7-21 NITROGEN (BEAKER) (test code = 354) CREATININE 1.04 mg/dL 0.57-1.25 (BEAKER) (test code = 358) GLUCOSE RANDOM 101 mg/dL 70-105 (BEAKER) (test code = 652) CALCIUM (BEAKER) 9.3 mg/dL 8.4-10.2 (test code = 697) EGFR (BEAKER) 84 Interpretatio n of eGFR (test code = mL/min/1.73 values Stage De scription 1092) sq m Result G1 Margaret l or high >=90 G2 Mildly decreased 60-89 G3a Mildl y to moderately 45-5 9 G3b Moderately to s everely 30-44 G4 Severl y decreased 15-29 G5 Kidney failure <15Reported eGF R is based on the CKD-EPI 2020 equation that d oes not use a race coefficientEsti mated GFR is not as accur ate as Creatinine Carlyn luis in predicting glom erular filtration rate . Estimated GFR is not appl icable for dialysis patien ts Puttier ID - [id number] 04:48:29 Test Item Value Reference Range Interpretation Comments MAGNESIUM (BEAKER) (test code = 2.2 mg/dL 1.6-2.6 627) Puttier ID - ADMINCOMPREHENSIVE METABOLIC [id number] 13:27:13 Test Item Value Reference Range Interpretation Comments TOTAL PROTEIN 6.7 gm/dL 6.0-8.3 (BEAKER) (test code = 770) ALBUMIN (BEAKER) 4.0 g/dL 3.5-5.0 (test code = 1145) ALKALINE 89 U/L 40-150 PHOSPHATASE (BEAKER) (test code = 346) BILIRUBIN TOTAL 1.7 mg/dL 0.2-1.2 H (BEAKER) (test code = 377) SODIUM (BEAKER) 140 meq/L 136-145 (test code = 381) POTASSIUM (BEAKER) 3.6 meq/L 3.5-5.1 (test code = 379) CHLORIDE (BEAKER) 106 meq/L 98-107 (test code = 382) CO2 (BEAKER) (test 23 meq/L 22-29 code = 355) BLOOD UREA 9 mg/dL 7-21 NITROGEN (BEAKER) (test code = 354) CREATININE 0.88 mg/dL 0.57-1.25 (BEAKER) (test code = 358) GLUCOSE RANDOM 81 mg/dL 70-105 (BEAKER) (test code = 652) CALCIUM (BEAKER) 9.2 mg/dL 8.4-10.2 (test code = 697) AST (SGOT) 20 U/L 5-34 (BEAKER) (test code = 353) ALT (SGPT) 17 U/L 6-55 (BEAKER) (test code = 347) EGFR (BEAKER) 100 Interpretatio n of eGFR (test code = 1092) mL/min/1.[address] age Description sq m Result G1 Margaret l or high >=90 G2 Mildly decreased 60-89 G3a Mildl y to moderately 45-5 9 G3b Moderately to s everely 30-44 G4 Severl y decreased 15-29 G5 Kidney failure <15Reported eGF R is based on the CKD-EPI 2020 equation that d oes not use a race coefficientEsti mated GFR is not as accur ate as Creatinine Carlyn smith in predicting glom erular filtration rate . Estimated GFR is not appl icable for dialysis patien ts Puttier ID - JSCBC W/PLT COUNT & AUTO [id number] 13:14:04 Test Item Value Reference Range Interpretation Comments WHITE BLOOD CELL COUNT (BEAKER) 4.2 K/ L 3.5-10.5 (test code = 775) RED BLOOD CELL COUNT (BEAKER) 2.93 M/ L 4.63-6.08 L (test code = 761) HEMOGLOBIN (BEAKER) (test code = 8.3 GM/DL 13.7-17.5 L 410) HEMATOCRIT (BEAKER) (test code = 26.7 % 40.1-51.0 L 411) MEAN CORPUSCULAR VOLUME (BEAKER) 91 fL 79-92 (test code = 753) MEAN CORPUSCULAR HEMOGLOBIN 28.3 pg 25.7-32.2 (BEAKER) (test code = 751) MEAN CORPUSCULAR HEMOGLOBIN CONC 31.1 GM/DL 32.3-36.5 L (BEAKER) (test code = 752) RED CELL DISTRIBUTION WIDTH 16.2 % 11.6-14.4 H (BEAKER) (test code = 412) PLATELET COUNT (BEAKER) (test code 51 K/CU MM 150-450 L = 756) MEAN PLATELET VOLUME (BEAKER) 11.9 fL 9.4-12.4 (test code = 754) NUCLEATED RED BLOOD CELLS (BEAKER) 0 /100 WBC 0-0 (test code = 413) NEUTROPHILS RELATIVE PERCENT 67 % (BEAKER) (test code = 429) LYMPHOCYTES RELATIVE PERCENT 17 % (BEAKER) (test code = 430) MONOCYTES RELATIVE PERCENT 11 % (BEAKER) (test code = 431) EOSINOPHILS RELATIVE PERCENT 3 % (BEAKER) (test code = 432) BASOPHILS RELATIVE PERCENT 1 % (BEAKER) (test code = 437) NEUTROPHILS ABSOLUTE COUNT 2.80 K/ L 1.78-5.38 (BEAKER) (test code = 670) LYMPHOCYTES ABSOLUTE COUNT 0.71 K/ L 1.32-3.57 L (BEAKER) (test code = 414) MONOCYTES ABSOLUTE COUNT (BEAKER) 0.47 K/ L 0.30-0.82 (test code = 415) EOSINOPHILS ABSOLUTE COUNT 0.14 K/ L 0.04-0.54 (BEAKER) (test code = 416) BASOPHILS ABSOLUTE COUNT (BEAKER) 0.05 K/ L 0.01-0.08 (test code = 417) IMMATURE GRANULOCYTES-RELATIVE 0.50 % 0.00-1.00 PERCENT (BEAKER) (test code = 2801) PROTHROMBIN TIME/[id number] 13:13:03 Test Item Value Reference Range Interpretation Comments PROTIME (BEAKER) (test code = 15.2 seconds 11.9-14.2 H 759) INR (BEAKER) (test code = 370) 1.28 <=5.90 RECOMMENDED COUMADIN/WARFARIN INR THERAPY RANGESSTANDARD DOSE: 2.0 - 3.0 Includes: PROPHYLAXIS for venous thrombosis, systemic embolization; TREATMENT for venous thrombosis and/or pulmonary embolus.HIGH RISK: Target INR is 2.5-3.5 for patients with mechanical heart valves.SARS-CoV2/RT-PCR ([facility]) 2022-06-21 13:03:14 Test Item Value Reference Interpretation Comments Range SARS-COV2/RT-PCR Negative Negative The SARS-Co V-2 (test code = target nucleic 98554-2) acids are not detected in thi s specimen. Negat raisa results do not preclude SARS-C oV-2 infection and should not be u sed as the sole bas is for patient management decisions. Nega tive results must be combined with clinical observations, patient history , and epidemiolog ical information. A false negative result may occu r if a specimen is improperly collected, transported or handled. This S ARS CoV-2 test is a rapid, real-nga e RT-PCR test intended for th e qualitative detection of nucleic acid fr om SARS-CoV-2 in a nasopharyngeal swab specimen colle elizabeth from individual s suspected of COVID-19 by the ir healthcare provider. DEWAYNE (test code = This test has been DEWAYNE) authorized by FDA under an EUA for use by authorized laboratories. This test is only authorized for the duration of the declaration that circumstances exist justifying the authorization of emergency use of in vitro diagnostic tests for detection and/or diagnosis of COVID-19 under Section 564(b)(1) of the Federal Food, Drug and Cosmetic Act, 21 U.S.C. 360bbb-3(b)(1), unless the authorization is terminated or revoked sooner. Fact Sheet for Healthcare Providers: https://www.[employer]/Documents/Xp ert%20Xpress%20SAR S%20CoV-2/Fact%20S heets/302-3802%20S ARS-COV-2%20HEALTH CARE%20PROVIDERS%2 0FACT%20SHEET.pdf Fact Sheet for Healthcare Patients: https://www.[employer]/Documents/Xp ert%20Xpress%20SAR S%20CoV-2/Fact%20S heets/302-3801%20S ARS-COV-2%20PATIEN T%20FACT%20SHEET.p df Lab Interpretation Normal (test code = 45849-2) [facility]2022-06-21 13:03:14 Test Item Value Reference Range Interpretation Comments SARS-COV2/RT-PCR Negative Negative The SARS-Co V-2 target (test code = nucleic acids a re not 9528304) detected in thi s specimen. Negative result s do not preclude SARS-C oV-2 infection and s hould not be used as the jeanine e basis for patient managem ent decisions. Nega tive results must be combine d with clinical observ ations, patient history , and epidemiological information. A false negativ e result may occur if a spec imen is improperly jonelle ected, transported or handled. This SARS CoV-2 test is a rapid, real-time RT-PC R test intended for th e qualitative detection of nu cleic acid from SARS-CoV-2 in a nasopharyngeal swab specimen collected from individuals suspected of CO VID-19 by their healthcar e provider. This test has been authorized by FDA under an EUA for use by authorized laboratories. This test is only authorized for the duration of the declaration that circumstances exist justifying the authorization of emergency use of in vitro diagnostic tests for detection and/or diagnosis of COVID-19 under Section 564(b)(1) of the Federal Food, Drug and Cosmetic Act, 21 U.S.C. 360bbb-3(b)(1), unless the authorization is terminated or revoked sooner. Fact Sheet for Healthcare Providers: https://www.[employer] m/Documents/Xpert%20Xpress%20SARS%20CoV-2/Fact%20Sheets/302-3802%55PBPE-TTN-1%20 HEALTHCARE%20PROVIDERS%20FACT%20SHEET.pdf Fact Sheet for Healthcare Patients: https://www.[employer]/Documents/Xpert%20Xp ress%20SARS%20CoV-2/Fact%20Sheets/302-3801%07JEIE-OGC-5%20PATIENT%20FACT%20SHEET .pdfSURGICAL PATHOLOGY [id number] 19:37:37 Test Item Value Reference Range Interpretation Comments Case Report (test code Surgical Pathology ? ? = [id number]) ?Case: [id number] ? Authorizing Provider: ?Lawrence Peterson MD ?Collected: ? 06/03/2022 1042 ?Ordering Location: ? ? [facility] OR ? Received: ?06/03/2022 1154 ? Department ? Pathologist: ? Tatyana Monroe, ? PhD ? Specimen: ? ?OTHER, IVC FOREIGN BODY ? Final Diagnosis (test z0eqiNDkMVUvp0jjWPCmgP code = [id number]) FuZzEwMzNcZnRuYmpcdWMx IHtccnRmMVxlcGljMTAyMD DyYH9hhKaksUw2sZetOWNf yoY3qTSrWSxsz2xmHAY6h0 jbvdgmYQXcPLirNq2hcXUi jTxfGfLjPKTbGPp7gU10MQ RnxK9ljQGdTNb9WIDukOZr cnPyDdLcZOQlbHSfzBE6MY JtVM3lmjglAOfeLHxtRRUu beB3GQQetNDnD5KaQGCaZE 2lungcCHK3WVmeHAYsLCO9 OuKzYJHho1Bkdry7OaErgC FyZFxwbGFpblxmczIwXHBh ciBBLiBIRUFSVCwgUkVNT1 ZBTCBPRiBJTkZFUklPUiBW CD5RVJESBvCfLq3XPRfAAb DTI7CGSrXprMDkOODyATZg ZU6KQXZKOOaJRU5WKUvTTL mnRQZJLZJDKOGXXhYSX3HS AaTuM5uCGPMERoHOKqmPNi OXVG1CRRHIVjQsKmvFOJKV QYljRESzEEZkYBWlV1Tkb8 XuJGuigLieDRWrn94dc09h mNzja3YdCJnmo6DiCJQmx7 PrpAK0fP4yPE1kVWWupfQj PPPfYYDMRPEfR11ZOLTSXM 9ruOUqmAtrubZkCKhjg8Ja X1PhSaJnBZnlwfGhLZXfXo altmcwREZeZRE1emObOFLo VTbiVKRiJJxmNo5iqMUkoO yvDpMsJRRag1vcqiPRJCcy TuWtC689OPWzRPffv5kyj3 PpPFNfyINow9W4XVQZzfrk jGh1n2cuMtXjEbA4sGRaDO ihK0maryEgrOOdG1ItzAPf bIa3eVjjQ29rh8K6BpoqC7 ubISWoUKKnA6GmKL6jZHNk Rgc8IOC2NUK8MNNjGSZiS3 WfIW3oKXCzsPMsSRc1j9co cUufXQXiEDN1h1kkYWjovv Q5OK4sbt9znNc7c8fddaOo JYQlEZDuiTKDZQRtE0UgzS duFs9jdGm1yMywBajdSDS1 Xjc9TV6epc06qty5gLjwZW YkvmamJyQ3VIwwRXCebheh MBy2TYroKILaeAV1HJAsiE ClZ3WoPETvKR9rgcd9KRA6 EVelCTUgWuX1SLRhjDTyWF NjePdiLYszh266UEI2HgKo VD9wN5Qhp9O2hD9fqAViKK PqzHXiGsOwPYAllg0inSNe BXftd3JxTBY2qfH7jGMuhW FiPKIqGM55Dwdzj4ReDsyc XAM4UDQuwzRqt9Ajz4gfEg WyvxEjF2puS5LwKWRoSCAs DUKpYpPstiDcf4Yys0LwpI FfnOh3q1reVNLyXQFoyUzx u0gbNWC8CMPlC9T6gOXvo1 pkNTzwZYSffHU4pgB0WCJq bCOzF0OvlI2pQPMeKJ3hga e6x6hzJVQ6GEvuAWOfIkE4 txG0BGTqiUQcXDIfdTexED kjw135CEG4QwGyXUBic6Py Y9UghMfgN84wiIyuU97oOR CfwYuekC2dxAkabR9eGxGw ZnMyNFxxbFxwbGFpblxmMV xmczIwXGxhbmcxMDMzXGhp V8vjKeWuLPPidRmxNXcug0 NoXGYxXGNmMlxmczIwXHBh heAVAJabnmUkzSZtr72uNF xseSByZXZpZXdlZCBhbGwg x8EmK2ggSQ9fM6LpsUVxnb ZsatPyUXspGOYzv9y8jJZa tHava7FueIOhYT40pwEwAS OaGXB0JFEql8lpWW22fuxa ZyYjwS42pkAvqiDuGPTrs7 jrN4ezqQKsc0Kqu6RivmKx XPanp9CiJQ5gjLFnouounI B6AXRdgYSzyoTjteY7sEmv PHNcxN5xvJ4syKpjeB0wEf PcMnQrKHczNA7cFGEyP9ld uMTnCFJqTHLeL6vxBxHyoN 8ajKeeCarfulT5VROzcc96 Final Diagnosis Comment u7kwyAJoJJRgxQJzENVjIu (test code = oejrRuMOJmvGAiX2Naymgd [id number]) TWrfKP5cZL3ulBrdwIIrsG KtOATdTcXba9cod114qLPz b0wmIYHZmeruqJa8aXxcC3 0pa6Y6HosjJ8zsKCG4GJdj gqRalpNpHOQooRV2XVlwuk BdFwL7KSnzXKMlQbJ0VLBz tVOrTGQ8pYecRXQfqwdfJk V4YBpyBPNotrtqQIm6SHov RGLtlHQ5BZVzgJRqS9EdAJ UlOB6xqyi0QAP9DPmfOXTd CjK0HHTymIZnHXIzyXpcKE hxv122QVB9LnXtEEKzfhZd jBpdcF7dSdRxHBtvGgNtQ4 hjYnBhdDJccGFyIFRoZSBh Mf44XYLwzUOkbX6lkiHwvT V4IURnDFYuMKW5EgtjG7Ex RKL6ylVmtx4twnForBZvwE 7myDtsgoErlzs4WFK6iNBb FZXuygQlmhFyk3M8UHHco7 F6FFBtp1AapNomhz0yG28s lZKqJKXmrKLfaFrvms4dMJ YgdGhlIHNwZWNpbWVuIGlz LD6bSBTxKZPfg4Ttw2ZzWC CvrqVao99yvbhryWffCGFg QMXebxLmF0AibCjaACPhj7 RpsIP4eH3bs7ffu0BoDMOs cn0= Clinical Information Acute deep vein (test code = thrombosis (DVT) of [id number]) iliac vein of both lower extremities [I82.423] Gross Description (test f3qahNAmPFSgnKAcQAGcQn code = [id number]) ysdpLkIFOnfJUeI0Mdjwjq WBnxKC1sGC3heEajaDVbdT GgLBMbGgMlz4ozs270nNZf p0ahHLCFmilbpKu3oBogP7 8cp6E3LzizW42yoETrTIS1 HECkDTTlwPBjFOVmWWR9EJ OqpCBrY0rhKNCiNU4thvbz IVksPBndQVJzzRY6KTEtxC BfW5JuOKFfISxdWVZqosh4 VoQgQk2qvZIdfEdxAWhmQs spgZfmi9DpkJMdINjyREAs FYXcEEaoJTQlL5HNUNNjXe r9HOOlNEAvCnJAVPV1ZhM6 MGJnMXBDJETkVStuWPI6No kyIiBMUlIgODAwMDAwMDAw RUVsZE4kENcsjORsMFrbOm oqHZnjH135OGuzLFPoU9Lz T3EcMYfrJYT2AJBjJdQvAA PoOZ1LRcSgGOZ7BBYsQdTq HYw0ENc8VD4IHxOjAKBoCf B2CaTbHIDgTDk6FBorRF9C FXU7YUSvXqb1FHaeBGH9LN JoFVp0YVKaBKnnmcNaDAso GhbfSUfbN44osVTkWPhacY FpblxmczIwIFNQRUNJTUVO NXNgxQNiPCPpgwChb1ItVK acpAftRQDfRlXfaGqxsZ4g DrGiJGXXtUTckP0mplBHIY guXWOjA2LdnxUnVKJqBVBf IGxhYmVsbGVkIHdpdGggdG vwGIWklQpuxaDmW8G9lgGb UG7oFCIKOMLboI6hAOQhJC JxKUISHWIpuyPtS15sAz1k dVuvTwLgJ2P7IGAcQHZll3 7urTB3ekKvKrMsWI6hwYGz oEktQM11yKKpyIGuqzxyQC OvKTJjM8UkVBOlaunmVOKw BJ90IFgfXz4dMFdgHI87KD SaWVifT6Jzq0DktWVzf43z wSC6SU76BXcuvObmHT9rmT 8zQEIao9KiiuEvUOQlSSIh BOWyhFNeid0iMYldl8IcRF 7xOOwzAVnlaFibtP3jplRp bNXpHSLaAEBnj7HeJdBKvO Wdq9LkF6xyKA6kkCHzFv0q YUkvy4XuKBJ1IA3lqiR9xT 2qXM9awAkwDAgxZYAdkEPk ZFxmczIyXHBhclxzYTMwXG NoqYKFn5MsOSAZqLshBITW Q2bfdGTcZBanKYMLIYgWG3 CIMScuVSRxN4BmU7VfapX2 f3xrmChvn4HaoBFlKW2myG FyfQ== Disclaimer (test code = y9hhkROsOAPrl5egTRXreC [id number]) FuZzEwMzNcZnRuYmpcdWMx UFqlolKsHLase8RlJ9MjQk AwMFxhbnNpXGRlZmxhbmcx ZWUhRID6tpRbUZWqGFofVQ IqWAvhEl7vjGNsgQjwZmGx XIZhw3zqeuVBZVixLqIxO7 20BSVqCFant7zbt8GbZZVb oYJrx4M8BVPLryuhjDo3sF uuA68xh1A0FjyqN8krHZCs VEXxT7ZxIB0eWCJhYpd2QW A6ZBD2CHXgIAJzZ3SjYM3i FYKvkYMsGRz2h7dmfQbgUM VcIAT9h9imPKewljCiEZ0p my8raOr5y4wsoiToWSSqXD QbrGTMITAfQ9FfuMbwHz7e bPl5cAhoLhluBZJ6Ijd3CK 7ahy27upx3pJcoTNAaeufm VsI7RDziPXKygrofYDz3SF djUEQlvXW1KRTxqSNlP0Gb DZEbVK0fjaa9GGI9NVofPH TrBrL5ROKduGIsKUBwsPmo CPlte487RWV8ZwItWS7uB0 Zkf0F5vL7bsZMuNEUbiETg KzDvTEUjca0qbLVrMKmut2 CuXVQ5xkT0eQFxhIIyPODc SY83Rdbcs5AoGbrhw9WiC7 0mySV9FNfqg1ljTD2gMhE2 zlMeVVypo3dvhE5zCpH6WB jgND3xVI8sITDxdU1wthxw XHBnYnJkcmhlYWRccGdicm RdXr2buHumQEA5QMrdO9wi qI0qYkV9HDfrO4estO0gNL f3TChysKX2THZdgS2gIP9u nktgv0tyYVgpXEfrSUAgdb Q3qpA7TPAdbAUgZ4JktB5p NQTsLF4nrzjae2jeGUX9YF vxHQPfVPL7IyKgXWDot5Ea gvo5NqSme9AzdQVmOIqdO2 3qn431NLTfgqYrK5zeeEIe wawngWMyrizoSBlodiS1JR ErwqUic1VoLAXaOXG7KAgv VXxdrRDhCCCugKzig7rnM4 RscGFyXHBsYWluXGYxXGZz MjBcbGFuZzEwMzNcaGljaF nxMOdgPyKbWJYuUGlrS1ks RyNfJ4ClTBDoDdHswDQoL5 ggVGhpcyByZXBvcnQgbWF5 LFrkZ7m9ZEIvtzDgfXn3dy FbRzTsRIVqFTJ7BMtimIEt HHWix2ElsbvsdOEgZc9loT McEPQnbR1vTTNuZQQtJUlr XL1hmWx4PKKBoAMtkHRgRz RZNUTsEP17uyBcHAWSamde h2J7KSkwBEPfz0UcxHPiO4 hah9VrBURuq14uCI2fk5S3 l6dvRYO9JF0mh4CcAUDroK DrsRBdIAJfl7Fbnfafy8Bb BOLtfjWfv0MlEZTkniYwdO XhYRKbrmTsrp0rtvLeMFAz CIMlU0ToeniivPftoxJpBR Qpee3fhrUsXTG5TTRDSLEa ZAZsj1MsfJ4pnJYYPJP4uB Vbnc8pgnBPcJWfYDXmrk64 VZBbFW1dY2iiXHNrCUSlrt BiqMNin0DfYVFioUD5aXIt IB1VKzOOu47wNGBbXQWMgd RlKZZjgJfhbVX1rdO5sW1p IChGREEpLlx+IFRoZSBGRE VaKU5hfqVbd0ExqyNlyBbg FEHszCBxj5RpbVKkv4SeqH hls3GfqZLsiZNsGT6qQISv clxwYXIgVVRNQiBMYWJvcm I3b7HvLHWaTHQkKLU2gCue bog4GPPifN5xZZBsQ8ymgr qaIWgqQEPtj6VzaY8fsLVD aAHfm9SvfVGafHKHlHZnIV 2jaoFmUHlENEeGZRF5vvFn EPJsc5AaJOdyP7evT72pqE ehmHa1vVM5SVR2uK0jDxe+ IFxwYXJccGFyIEFwcHJvcH TyCEYvgGferuTsH7YrfjWc gT5nvKKtysPyHK8tJW0iQ5 H5dFEgJXUgeqBjw8xjDTta dmUgYmVlbiByZXZpZXdlZC Occ4OpEZliRKT4VNwzgbUj bmNsdWRpbmcgSCZFLCBTcG BndFJxVJX3KYiwykCgtrZg YD9hqP2xmRhmmG6wvUJvgN R4cjtgHRJpUHTdtYjrTXYq PG9qoLQxTXVazoMFbLljkE WnpJ8eW6JpYKLfJMWwyi9a TVTwpR6fGVivr9YjntriUH PmOKUlIPZasiXeyu3wYLUv nKPWHR0SVOsugOEnk2Nhei LyE7uRRGG0WKNyJjWhMfgd PMAfqKNcmMUoVWYufe44TS SnvT4zcCeiUXQleJ1vpP8h iQpjvE3fNaPeNbXuLQrhJY 2nJIIsY7hrwELtHLKoLPPu N0hvQoVxmF7zmZwiTRfuZm KnIhEcQPvqDLT8oS== Embedded Images (test code = 7682489165) [facility] METABOLIC PANEL (NA, K, CL, CO2, GLUCOSE, BUN, CREATININE, CA)2022-06-07 09:52:38 Test Item Value Reference Range Interpretation Comments NA (test code = 135 mmol/L 135-145 1237751480) K (test code = 4.0 mmol/L 3.5-5.0 6133274297) CL (test code = 104 mmol/L 98-108 7168868235) CO2 TOTAL (test code = 25 mmol/L 23-31 4179359242) AGAP (test code = 6 2-16 6827835437) BUN (test code = 16 mg/dL 7-23 6792932619) GLUCOSE (test code = 144 mg/dL 70-110 H 9234484790) CREATININE (test code = 1.10 mg/dL 0.60-1.25 4388882251) CALCIUM (test code = 8.4 mg/dL 8.6-10.6 L 4134009282) eGFR (test code = 68.5 mL/min/1.73m2 3026139405) DEWAYNE (test code = DEWAYNE) Association of [...] tests). Lab Interpretation Abnormal (test code = 41313-3) [facility] Test Item Value Reference Range Interpretation Comments MAGNESIUM (test code = 4930989732) 2.5 mg/dL 1.7-2.4 H Lab Interpretation (test code = Abnormal 00803-7) [facility] Test Item Value Reference Range Interpretation Comments PHOSPHORUS (test code = 7259022761) 3.9 mg/dL 2.5-5.0 Lab Interpretation (test code = Normal 90083-4) [facility] WITH [id number] 12:15:07 Test Item Value Reference Range Interpretation [...] RDW-SD (test code = 51.5 fL 38.5-51.6 54642-3) RDW-CV (test code = 15.9 % 12.1-15.4 H 788-0) PLT (test code = 115 See_Comment L [Automated 777-3) message] The sy stem which generated this result transmitted reference range : 150 - 328 10*3/ ?L. The reference r mitra was not used to interpret this result as normal/abnormal . MPV (test code = 9.9 fL 9.8-13.0 57796-3) IPF % (test code = 2.9 % 1.2-10.7 Platelet count 5918595015) measured by fluorescence method. NRBC/100 WBC (test 0.3 See_Comment [Automat ed code = 9328390227) message] The system which generated this result transmitted reference range : 0.0 - 10.0 /100 WBCs. The refer ence range was not u sed to interpret th is result as normal/abnormal . NRBC x10^3 (test code 0.02 See_Comment [Auto mated = 7749502810) message] The s ystem which generated this result transmitted reference range : 10*3/?L. The reference range was not used to interpret this result as normal/abnormal . GRAN MAT (NEUT) % 60.5 % (test code = 770-8) IMM GRAN % (test code 1.70 % = 7441170508) LYMPH % (test code = 24.7 % 736-9) MONO % (test code = 8.7 % 5905-5) EOS % (test code = 3.9 % 713-8) BASO % (test code = 0.5 % 706-2) GRAN MAT x10^3(ANC) 3.84 10*3/uL 1.99-6.95 (test code = 9896029955) IMM GRAN x10^3 (test 0.11 10*3/uL 0.00-0.06 H code = 6434896890) LYMPH x10^3 (test code 1.57 10*3/uL 1.09-3.23 = 731-0) MONO x10^3 (test code 0.55 10*3/uL 0.36-1.02 = 742-7) EOS x10^3 (test code = 0.25 10*3/uL 0.06-0.53 711-2) BASO x10^3 (test code 0.03 10*3/uL 0.01-0.09 = 704-7) Lab Interpretation Abnormal (test code = 49738-1) [facility] WITH [id number] 12:15:07 Test Item Value Reference Range Interpretation Comments WBC (test code = 6.35 See_Comment [Automated 5290-2) message] The sy stem which generated this [...] RDW-SD (test code = 51.5 fL 38.5-51.6 28784-6) RDW-CV (test code = 15.9 % 12.1-15.4 H 788-0) PLT (test code = 115 See_Comment L [Automated 777-3) message] The sy stem which generated this result transmitted reference range : 150 - 328 10*3/ ?L. The reference r mitra was not used to interpret this result as normal/abnormal . MPV (test code = 9.9 fL 9.8-13.0 54880-8) IPF % (test code = 2.9 % 1.2-10.7 Platelet count [id number]) measured by fluorescence method. NRBC/100 WBC (test 0.3 See_Comment [Automat ed code = 7491309621) message] The system which generated this result transmitted reference range : 0.0 - 10.0 /100 WBCs. The refer ence range was not u sed to interpret th is result as normal/abnormal . NRBC x10^3 (test code 0.02 See_Comment [Auto mated = 8505520841) message] The s ystem which generated this result transmitted reference range : 10*3/?L. The reference range was not used to interpret this result as normal/abnormal . GRAN MAT (NEUT) % 60.5 % (test code = 770-8) IMM GRAN % (test code 1.70 % = 4877941183) LYMPH % (test code = 24.7 % 736-9) MONO % (test code = 8.7 % 5905-5) EOS % (test code = 3.9 % 713-8) BASO % (test code = 0.5 % 706-2) GRAN MAT x10^3(ANC) 3.84 10*3/uL 1.99-6.95 (test code = 5536519310) IMM GRAN x10^3 (test 0.11 10*3/uL 0.00-0.06 H code = 2317686333) LYMPH x10^3 (test code 1.57 10*3/uL 1.09-3.23 = 731-0) MONO x10^3 (test code 0.55 10*3/uL 0.36-1.02 = 742-7) EOS x10^3 (test code = 0.25 10*3/uL 0.06-0.53 711-2) BASO x10^3 (test code 0.03 10*3/uL 0.01-0.09 = 704-7) Lab Interpretation Abnormal (test code = 10033-2) [facility] Test Item Value Reference Range Interpretation Comments MAGNESIUM (test code = 5054475652) 2.4 mg/dL 1.7-2.4 Lab Interpretation (test code = Normal 94126-4) [facility]01 Test Item Value Reference Range Interpretation Comments PHOSPHORUS (test code = 5241790906) 4.1 mg/dL 2.5-5.0 Lab Interpretation (test code = Normal 13853-6) [facility] (NA, K, CL, CO2, GLUCOSE, BUN, CREATININE, CA)2022-06-05 11:43:01 Test Item Value Reference Range Interpretation Comments NA (test code = 137 mmol/L 135-145 4291686002) K (test code = 3.8 mmol/L 3.5-5.0 2062513912) CL (test code = 105 mmol/L 98-108 0864862657) CO2 TOTAL (test code = 28 mmol/L 23-31 4162694848) AGAP (test code = 4 2-16 1001733395) BUN (test code = 17 mg/dL 7-23 8687662457) GLUCOSE (test code = 86 mg/dL 70-110 5945663035) CREATININE (test code = 1.06 mg/dL 0.60-1.25 2001068052) CALCIUM (test code = 8.4 mg/dL 8.6-10.6 L 4990789173) eGFR (test code = 71.5 mL/min/1.73m2 5282514182) DEWAYNE (test code = DEWAYNE) Association of [...] tests). Lab Interpretation Abnormal (test code = 90476-1) [facility]:01 Test Item Value Reference Range Interpretation Comments MAGNESIUM (test code = 6550693289) 2.4 mg/dL 1.7-2.4 Lab Interpretation (test code = Normal 36397-7) [facility]:01 Test Item Value Reference Range Interpretation Comments PHOSPHORUS (test code = 3158724381) 4.1 mg/dL 2.5-5.0 Lab Interpretation (test code = Normal 11303-6) [facility] METABOLIC PANEL (NA, K, CL, CO2, GLUCOSE, BUN, CREATININE, CA)2022-06-05 11:43:01 Test Item Value Reference Range Interpretation Comments NA (test code = 137 mmol/L 135-145 8163304153) K (test code = 3.8 mmol/L 3.5-5.0 6159801039) CL (test code = 105 mmol/L 98-108 2521046881) CO2 TOTAL (test code = 28 mmol/L 23-31 1836869634) AGAP (test code = 4 2-16 6917895512) BUN (test code = 17 mg/dL 7-23 0717439135) GLUCOSE (test code = 86 mg/dL 70-110 0182709633) CREATININE (test code = 1.06 mg/dL 0.60-1.25 4167223513) CALCIUM (test code = 8.4 mg/dL 8.6-10.6 L 0650005915) eGFR (test code = 71.5 mL/min/1.73m2 1223798504) DEWAYNE (test code = DEWAYNE) Association of [...] tests). Lab Interpretation Abnormal (test code = 35659-8) [facility] (ALB,T.PRO,BILI T,BU/BC,ALT,AST,ALK PHOS)2022-06-04 08:25:57 Test Item Value Reference Range Interpretation Comments TOTAL BILI (test code = 0552517223) 0.7 mg/dL 0.1-1.1 BILI UNCON (test code = 8536719163) 0.3 mg/dL 0.1-1.1 BILI CONJ (test code = 8747924932) 0.0 mg/dL 0.0-0.3 T PROTEIN (test code = 4885968426) 6.4 g/dL 6.3-8.2 ALBUMIN (test code = 7126388699) 3.7 g/dL 3.5-5.0 ALK PHOS (test code = 6280976340) 105 U/L 34-122 ALTv (test code = 1742-6) 71 U/L 5-50 H AST(SGOT) (test code = 1900400049) 51 U/L 13-40 H Lab Interpretation (test code = Abnormal 53257-1) [facility] ([facility]56[facility] (ALB,T.PRO,BILI T,BU/BC,ALT,AST,ALK PHOS)2022-06-04 08:25:57 Test Item Value Reference Range Interpretation Comments TOTAL BILI (test code = 5527113608) 0.7 mg/dL 0.1-1.1 BILI UNCON (test code = 8765746375) 0.3 mg/dL 0.1-1.1 BILI CONJ (test code = 2545141476) 0.0 mg/dL 0.0-0.3 T PROTEIN (test code = 9981690007) 6.4 g/dL 6.3-8.2 ALBUMIN (test code = 0822981945) 3.7 g/dL 3.5-5.0 ALK PHOS (test code = 5560283241) 105 U/L 34-122 ALTv (test code = 1742-6) 71 U/L 5-50 H AST(SGOT) (test code = 6780037468) 51 U/L 13-40 H Lab Interpretation (test code = Abnormal 95964-4) [facility] [id number] 06:14:08 Test Item Value Reference Range Interpretation Comments TROPONIN I (test code = 0.027 ng/mL <=0.034 8562732351) DEWAYNE (test code = DEWAYNE) Reference (Normal) [...] biotin. Lab Interpretation Normal (test code = 95890-6) [facility] [id number] 06:14:08 Test Item Value Reference Range Interpretation Comments TROPONIN I (test code = 0.027 ng/mL <=0.034 0779705319) DEWAYNE (test code = DEWAYNE) Reference (Normal) [...] biotin. Lab Interpretation Normal (test code = 75123-5) [facility] WITH [id number] 05:33:25 Test Item Value Reference Range Interpretation Comments WBC (test code = 9.78 See_Comment [Automated 3714-2) message] The sy stem which generated this [...] RDW-SD (test code = 50.4 fL 38.5-51.6 63081-8) RDW-CV (test code = 15.9 % 12.1-15.4 H 788-0) PLT (test code = 121 See_Comment L [Automated 777-3) message] The sy stem which generated this result transmitted reference range : 150 - 328 10*3/ ?L. The reference r mitra was not used to interpret this result as normal/abnormal . MPV (test code = 8.7 fL 9.8-13.0 L 54285-8) IPF % (test code = 2.3 % 1.2-10.7 Platelet count 7768231948) measured by fluorescence method. NRBC/100 WBC (test 0.6 See_Comment [Automat ed code = 8771882083) message] The system which generated this result transmitted reference range : 0.0 - 10.0 /100 WBCs. The refer ence range was not u sed to interpret th is result as normal/abnormal . NRBC x10^3 (test code 0.06 See_Comment [Auto mated = 7730873720) message] The s ystem which generated this result transmitted reference range : 10*3/?L. The reference range was not used to interpret this result as normal/abnormal . GRAN MAT (NEUT) % 80.9 % (test code = 770-8) IMM GRAN % (test code 4.80 % = 0765724744) LYMPH % (test code = 8.6 % 736-9) MONO % (test code = 5.6 % 5905-5) EOS % (test code = 0.0 % 713-8) BASO % (test code = 0.1 % 706-2) GRAN MAT x10^3(ANC) 7.91 10*3/uL 1.99-6.95 H (test code = 3025146121) IMM GRAN x10^3 (test 0.47 10*3/uL 0.00-0.06 H code = 8740279107) LYMPH x10^3 (test code 0.84 10*3/uL 1.09-3.23 L = 731-0) MONO x10^3 (test code 0.55 10*3/uL 0.36-1.02 = 742-7) EOS x10^3 (test code = 0.06-0.53 L 711-2) BASO x10^3 (test code 0.01-0.09 = 704-7) Lab Interpretation Abnormal (test code = 76489-7) [facility] WITH [id number] 05:33:25 Test Item Value Reference Range Interpretation Comments WBC (test code = 9.78 See_Comment [Automated 6690-2) message] The sy stem which generated this result transmitted reference range : 4.20 - 10.70 10*3/?L. The reference range was not used to interpret this result as normal/abnormal . RBC (test code = 2.85 See_Comment L [Automated 199-8) message] The sy stem which generated this [...] RDW-SD (test code = 50.4 fL 38.5-51.6 39141-6) RDW-CV (test code = 15.9 % 12.1-15.4 H 788-0) PLT (test code = 121 See_Comment L [Automated 777-3) message] The sy stem which generated this result transmitted reference range : 150 - 328 10*3/ ?L. The reference r mitra was not used to interpret this result as normal/abnormal . MPV (test code = 8.7 fL 9.8-13.0 L 53461-4) IPF % (test code = 2.3 % 1.2-10.7 Platelet count 2840259950) measured by fluorescence method. NRBC/100 WBC (test 0.6 See_Comment [Automat ed code = 5133518146) message] The system which generated this result transmitted reference range : 0.0 - 10.0 /100 WBCs. The refer ence range was not u sed to interpret th is result as normal/abnormal . NRBC x10^3 (test code 0.06 See_Comment [Auto mated = 9391008676) message] The s ystem which generated this result transmitted reference range : 10*3/?L. The reference range was not used to interpret this result as normal/abnormal . GRAN MAT (NEUT) % 80.9 % (test code = 770-8) IMM GRAN % (test code 4.80 % = 8134758987) LYMPH % (test code = 8.6 % 736-9) MONO % (test code = 5.6 % 5905-5) EOS % (test code = 0.0 % 713-8) BASO % (test code = 0.1 % 706-2) GRAN MAT x10^3(ANC) 7.91 10*3/uL 1.99-6.95 H (test code = 8196500417) IMM GRAN x10^3 (test 0.47 10*3/uL 0.00-0.06 H code = 5684463486) LYMPH x10^3 (test code 0.84 10*3/uL 1.09-3.23 L = 731-0) MONO x10^3 (test code 0.55 10*3/uL 0.36-1.02 = 742-7) EOS x10^3 (test code = 0.06-0.53 L 711-2) BASO x10^3 (test code 0.01-0.09 = 704-7) Lab Interpretation Abnormal (test code = 90542-9) [facility] METABOLIC PANEL (NA, K, CL, CO2, GLUCOSE, BUN, CREATININE, CA)2022-06-04 05:32:04 Test Item Value Reference Range Interpretation Comments NA (test code = 136 mmol/L 135-145 2325076083) K (test code = 4.1 mmol/L 3.5-5.0 8997486031) CL (test code = 104 mmol/L 98-108 7549800578) CO2 TOTAL (test code = 25 mmol/L 23-31 9132801124) AGAP (test code = 7 2-16 4800442865) BUN (test code = 19 mg/dL 7-23 2560853158) GLUCOSE (test code = 166 mg/dL 70-110 H 3631436252) CREATININE (test code = 1.00 mg/dL 0.60-1.25 1452504320) CALCIUM (test code = 8.8 mg/dL 8.6-10.6 3535935105) eGFR (test code = 76.5 mL/min/1.73m2 4708138694) DEWAYNE (test code = DEWAYNE) Association of [...] tests). Lab Interpretation Abnormal (test code = 99759-3) [facility] METABOLIC PANEL (NA, K, CL, CO2, GLUCOSE, BUN, CREATININE, CA)2022-06-04 05:32:04 Test Item Value Reference Range Interpretation Comments NA (test code = 136 mmol/L 135-145 6255405521) K (test code = 4.1 mmol/L 3.5-5.0 7225178228) CL (test code = 104 mmol/L 98-108 9238291892) CO2 TOTAL (test code = 25 mmol/L 23-31 5484830330) AGAP (test code = 7 2-16 6749540208) BUN (test code = 19 mg/dL 7-23 1970711463) GLUCOSE (test code = 166 mg/dL 70-110 H 8173169820) CREATININE (test code = 1.00 mg/dL 0.60-1.25 9692657406) CALCIUM (test code = 8.8 mg/dL 8.6-10.6 6743843680) eGFR (test code = 76.5 mL/min/1.73m2 2537343239) DEWAYNE (test code = DEWAYNE) Association of [...] tests). Lab Interpretation Abnormal (test code = 68024-8) [facility] (for use with Heparin Drip)2022-06-04 05:24:43 Test Item Value Reference Range Interpretation Comments APTT Patient (test code 105 See_Comment [Au tomated message] = 3173-2) The system mth sense generated this result transmitted ref erence range: 26 - 36 Seconds. The reference range was not used to int erpret this result as normal/abnormal . Lab Interpretation (test Abnormal code = 49901-7) [facility] (for use with Heparin Drip)2022-06-04 05:24:43 Test Item Value Reference Range Interpretation Comments APTT Patient (test code 105 See_Comment [Au tomated message] = 3173-2) The system mth sense generated this result transmitted ref erence range: 26 - 36 Seconds. The reference range was not used to int erpret this result as normal/abnormal . Lab Interpretation (test Abnormal code = 12419-8) [facility]CA2[facility] 02:57:07 Test Item Value Reference Range Interpretation Comments PH (test code = 2) 7.31 7.35-7.45 L PCO2 (test code = 42 See_Comment [Automate d message] 7641773039) The system mth sense generated this result transmit elizabeth reference range : 35 - 45 mmHg. The reference range was not used to interpret this result as normal/abnormal . PO2 (test code = 144 See_Comment H [Automated message] 1042413242) The system mth sense generated this result transmit elizabeth reference range : 80 - 100 mmHg. The reference range was not used to interpret this result as normal/abnormal . HCO3 (test code = 21 See_Comment L [Automate d message] 9260553194) The system mth sense generated this result transmit elizabeth reference range : 22 - 26 mEq/L. The reference range was not used to interpret this result as normal/abnormal . BE (test code = -4.8 See_Comment L [Automated message] 1401511000) The system mth sense generated this result transmit elizabeth reference range : -3.0 - 3.0 mEq/ L. The reference r mitra was not used to interpret this result as normal/abnormal . THB (test code = 9.6 g/dL 13.5-18.0 L 8052239681) %O2HB (test code = 98.4 % 94.0-99.0 1272558639) %COHB ART (test code = 0.1 % 0.0-1.5 4229050764) %METHB ART (test code = 0.1 % 0.4-1.5 L 5326780310) VOL%O2 ART (test code = 13.6 % 15.0-23.0 L QUES 1169472310) NA (test code = 133 mmol/L 135-145 L 4132952879) K+ (test code = 4.6 mmol/L 3.5-5.0 8569303806) AC CA IONZ (test code = 4.40 mg/dL 4.50-5.30 L 2760031335) GLUCOSE (test code = 148 mg/dL 70-110 H 1720984919) Lab Interpretation Abnormal (test code = 99031-2) [facility]CA2+[facility]22-06-04 02:57:07 Test Item Value Reference Range Interpretation Comments PH (test code = 2) 7.31 7.35-7.45 L PCO2 (test code = 42 See_Comment [Automate d message] 3461720800) The system mth sense generated this result transmit elizabeth reference range : 35 - 45 mmHg. The reference range was not used to interpret this result as normal/abnormal . PO2 (test code = 144 See_Comment H [Automated message] 9977533613) The system mth sense generated this result transmit elizabeth reference range : 80 - 100 mmHg. The reference range was not used to interpret this result as normal/abnormal . HCO3 (test code = 21 See_Comment L [Automate d message] 9981583023) The system mth sense generated this result transmit elizabeth reference range : 22 - 26 mEq/L. The reference range was not used to interpret this result as normal/abnormal . BE (test code = -4.8 See_Comment L [Automated message] 2553501025) The system mth sense generated this result transmit elizabeth reference range : -3.0 - 3.0 mEq/ L. The reference r mitra was not used to interpret this result as normal/abnormal . THB (test code = 9.6 g/dL 13.5-18.0 L 3500665650) %O2HB (test code = 98.4 % 94.0-99.0 3309231709) %COHB ART (test code = 0.1 % 0.0-1.5 9512948864) %METHB ART (test code = 0.1 % 0.4-1.5 L 0714806664) VOL%O2 ART (test code = 13.6 % 15.0-23.0 L QUES 0906499897) NA (test code = 133 mmol/L 135-145 L 6642870817) K+ (test code = 4.6 mmol/L 3.5-5.0 6137700239) AC CA IONZ (test code = 4.40 mg/dL 4.50-5.30 L 2436115728) GLUCOSE (test code = 148 mg/dL 70-110 H 9438091344) Lab Interpretation Abnormal (test code = 99207-8) [facility]CA2+[facility]22-06-04 02:55:52 Test Item Value Reference Range Interpretation Comments PH (test code = 2) 7.31 7.35-7.45 L PCO2 (test code = 38 See_Comment [Automate d message] 7584753565) The system mth sense generated this result transmit elizabeth reference range : 35 - 45 mmHg. The reference range was not used to interpret this result as normal/abnormal . PO2 (test code = 180 See_Comment H [Automated message] 6919505902) The system mth sense generated this result transmit elizabeth reference range : 80 - 100 mmHg. The reference range was not used to interpret this result as normal/abnormal . HCO3 (test code = 19 See_Comment L [Automate d message] 2707986179) The system mth sense generated this result transmit elizabeth reference range : 22 - 26 mEq/L. The reference range was not used to interpret this result as normal/abnormal . BE (test code = -7.2 See_Comment L [Automated message] 2970692270) The system mth sense generated this result transmit elizabeth reference range : -3.0 - 3.0 mEq/ L. The reference r mitra was not used to interpret this result as normal/abnormal . THB (test code = 8.4 g/dL 13.5-18.0 L 6899815185) %O2HB (test code = 98.1 % 94.0-99.0 4566652498) %COHB ART (test code = 0.4 % 0.0-1.5 7098462070) %METHB ART (test code = 0.3 % 0.4-1.5 L 6495575589) VOL%O2 ART (test code = 12.0 % 15.0-23.0 L QUES 9680566958) NA (test code = 135 mmol/L 135-145 0185767929) K+ (test code = 4.1 mmol/L 3.5-5.0 9572154150) AC CA IONZ (test code = 4.90 mg/dL 4.50-5.30 6700605753) GLUCOSE (test code = 128 mg/dL 70-110 H 0253384062) Lab Interpretation Abnormal (test code = 24358-6) [facility]GLU[facility]CA2+2022-06-04 02:55:52 Test Item Value Reference Range Interpretation Comments PH (test code = 2) 7.31 7.35-7.45 L PCO2 (test code = 38 See_Comment [Automate d message] 3075665693) The system mth sense generated this result transmit elizabeth reference range : 35 - 45 mmHg. The reference range was not used to interpret this result as normal/abnormal . PO2 (test code = 180 See_Comment H [Automated message] 9353605644) The system mth sense generated this result transmit elizabeth reference range : 80 - 100 mmHg. The reference range was not used to interpret this result as normal/abnormal . HCO3 (test code = 19 See_Comment L [Automate d message] 7766696685) The system mth sense generated this result transmit elizabeth reference range : 22 - 26 mEq/L. The reference range was not used to interpret this result as normal/abnormal . BE (test code = -7.2 See_Comment L [Automated message] 5025733098) The system mth sense generated this result transmit elizabeth reference range : -3.0 - 3.0 mEq/ L. The reference r mitra was not used to interpret this result as normal/abnormal . THB (test code = 8.4 g/dL 13.5-18.0 L 7192825771) %O2HB (test code = 98.1 % 94.0-99.0 9267640953) %COHB ART (test code = 0.4 % 0.0-1.5 3914095587) %METHB ART (test code = 0.3 % 0.4-1.5 L 7374018828) VOL%O2 ART (test code = 12.0 % 15.0-23.0 L QUES 3496309472) NA (test code = 135 mmol/L 135-145 3855584534) K+ (test code = 4.1 mmol/L 3.5-5.0 4420386656) AC CA IONZ (test code = 4.90 mg/dL 4.50-5.30 7613263166) GLUCOSE (test code = 128 mg/dL 70-110 H 3469203466) Lab Interpretation Abnormal (test code = 18053-9) [facility] [id number] 13:22:00 Test Item Value Reference Range Interpretation Comments ABO & RH (test code = 20) AB POSITIVE IAT (test code = 1185) Negative [facility] [id number] 13:22:00 Test Item Value Reference Range Interpretation Comments ABO & RH (test code = 20) AB POSITIVE IAT (test code = 1185) Negative [facility] WITH [id number] 11:35:29 Test Item Value Reference Range Interpretation [...] RDW-SD (test code = 50.8 fL 38.5-51.6 46123-7) RDW-CV (test code = 15.9 % 12.1-15.4 H 788-0) PLT (test code = 265 See_Comment [Automated 777-3) message] The sy stem which generated this result transmitted reference range : 150 - 328 10*3/ ?L. The reference r mitra was not used to interpret this result as normal/abnormal . MPV (test code = 9.0 fL 9.8-13.0 L 87160-3) NRBC/100 WBC (test 0.5 See_Comment [Automat ed code = 7021320110) message] The system which generated this result transmitted reference range : 0.0 - 10.0 /100 WBCs. The refer ence range was not u sed to interpret th is result as normal/abnormal . NRBC x10^3 (test code 0.06 See_Comment [Auto mated = 9125908077) message] The s ystem which generated this result transmitted reference range : 10*3/?L. The reference range was not used to interpret this result as normal/abnormal . GRAN MAT (NEUT) % 67.4 % (test code = 770-8) IMM GRAN % (test code 5.90 % = 3848949315) LYMPH % (test code = 13.6 % 736-9) MONO % (test code = 8.5 % 5905-5) EOS % (test code = 4.1 % 713-8) BASO % (test code = 0.5 % 706-2) GRAN MAT x10^3(ANC) 7.42 10*3/uL 1.99-6.95 H (test code = 9892410349) IMM GRAN x10^3 (test 0.65 10*3/uL 0.00-0.06 H code = 3439809283) LYMPH x10^3 (test code 1.50 10*3/uL 1.09-3.23 = 731-0) MONO x10^3 (test code 0.94 10*3/uL 0.36-1.02 = 742-7) EOS x10^3 (test code = 0.45 10*3/uL 0.06-0.53 711-2) BASO x10^3 (test code 0.06 10*3/uL 0.01-0.09 = 704-7) Lab Interpretation Abnormal (test code = 56103-1) [facility] WITH [id number] 11:35:29 Test Item Value Reference Range Interpretation Comments WBC (test code = 11.02 See_Comment H [Automated 6390-2) message] The sy stem which generated this result transmitted reference range : 4.20 - 10.70 10*3/?L. The reference range was not used to interpret this result as normal/abnormal . RBC (test code = 3.21 See_Comment L [Automated 899-8) message] The sy stem which generated this [...] RDW-SD (test code = 50.8 fL 38.5-51.6 59579-5) RDW-CV (test code = 15.9 % 12.1-15.4 H 788-0) PLT (test code = 265 See_Comment [Automated 777-3) message] The sy stem which generated this result transmitted reference range : 150 - 328 10*3/ ?L. The reference r mitra was not used to interpret this result as normal/abnormal . MPV (test code = 9.0 fL 9.8-13.0 L 56074-7) NRBC/100 WBC (test 0.5 See_Comment [Automat ed code = 3681153670) message] The system which generated this result transmitted reference range : 0.0 - 10.0 /100 WBCs. The refer ence range was not u sed to interpret th is result as normal/abnormal . NRBC x10^3 (test code 0.06 See_Comment [Auto mated = 6511137926) message] The s ystem which generated this result transmitted reference range : 10*3/?L. The reference range was not used to interpret this result as normal/abnormal . GRAN MAT (NEUT) % 67.4 % (test code = 770-8) IMM GRAN % (test code 5.90 % = 9822310318) LYMPH % (test code = 13.6 % 736-9) MONO % (test code = 8.5 % 5905-5) EOS % (test code = 4.1 % 713-8) BASO % (test code = 0.5 % 706-2) GRAN MAT x10^3(ANC) 7.42 10*3/uL 1.99-6.95 H (test code = 9882019368) IMM GRAN x10^3 (test 0.65 10*3/uL 0.00-0.06 H code = 4550704698) LYMPH x10^3 (test code 1.50 10*3/uL 1.09-3.23 = 731-0) MONO x10^3 (test code 0.94 10*3/uL 0.36-1.02 = 742-7) EOS x10^3 (test code = 0.45 10*3/uL 0.06-0.53 711-2) BASO x10^3 (test code 0.06 10*3/uL 0.01-0.09 = 704-7) Lab Interpretation Abnormal (test code = 98919-3) [facility]:30:46 Test Item Value Reference Range Interpretation Comments MAGNESIUM (test code = 4044765838) 2.4 mg/dL 1.7-2.4 Lab Interpretation (test code = Normal 04389-9) [facility] 11:30:46 Test Item Value Reference Range Interpretation Comments PHOSPHORUS (test code = 1927713871) 4.8 mg/dL 2.5-5.0 Lab Interpretation (test code = Normal 96639-7) [facility] (NA, K, CL, CO2, GLUCOSE, BUN, CREATININE, CA)2022-06-03 11:30:46 Test Item Value Reference Range Interpretation Comments NA (test code = 136 mmol/L 135-145 6999107140) K (test code = 4.2 mmol/L 3.5-5.0 3612770446) CL (test code = 104 mmol/L 98-108 2541774617) CO2 TOTAL (test code 26 mmol/L 23-31 = 3621351516) AGAP (test code = 6 2-16 4219385390) BUN (test code = 18 mg/dL 7-23 5514164161) GLUCOSE (test code = 103 mg/dL 70-110 6615985250) CREATININE (test code 1.08 mg/dL 0.60-1.25 = 9683703211) CALCIUM (test code = 8.7 mg/dL 8.6-10.6 8484688524) eGFR (test code = 70.0 mL/min/1.73m2 8872024894) DEWAYNE (test code = DEWAYNE) Association of [...] or urine or abnormalities in imaging tests). [facility] Test Item Value Reference Range Interpretation Comments MAGNESIUM (test code = 4111793708) 2.4 mg/dL 1.7-2.4 Lab Interpretation (test code = Normal 03685-3) [facility] Test Item Value Reference Range Interpretation Comments PHOSPHORUS (test code = 5717642372) 4.8 mg/dL 2.5-5.0 Lab Interpretation (test code = Normal 32993-3) [facility] (NA, K, CL, CO2, GLUCOSE, BUN, CREATININE, CA)2022-06-03 11:30:46 Test Item Value Reference Range Interpretation Comments NA (test code = 136 mmol/L 135-145 8209710195) K (test code = 4.2 mmol/L 3.5-5.0 8181777531) CL (test code = 104 mmol/L 98-108 6378491285) CO2 TOTAL (test code 26 mmol/L 23-31 = 6588204204) AGAP (test code = 6 2-16 6035663175) BUN (test code = 18 mg/dL 7-23 6678869403) GLUCOSE (test code = 103 mg/dL 70-110 6017939600) CREATININE (test code 1.08 mg/dL 0.60-1.25 = 8805513047) CALCIUM (test code = 8.7 mg/dL 8.6-10.6 8139777836) eGFR (test code = 70.0 mL/min/1.73m2 0872452308) DEWAYNE (test code = DEWAYNE) Association of [...] or urine or abnormalities in imaging tests). [facility]:15:05 Test Item Value Reference Range Interpretation Comments APTT Patient (test code 52 See_Comment H [Au tomated message] = 4660-2) The system mth sense generated this result transmitted ref erence range: 26 - 36 Seconds. The reference range was not used to int erpret this result as normal/abnormal . Lab Interpretation (test Abnormal code = 97179-3) [facility] 11:15:05 Test Item Value Reference Range Interpretation Comments APTT Patient (test code 52 See_Comment H [Au tomated message] = 1833-2) The system mth sense generated this result transmitted ref erence range: 26 - 36 Seconds. The reference range was not used to int erpret this result as normal/abnormal . Lab Interpretation (test Abnormal code = 72403-7) [facility] METABOLIC PANEL (NA, K, CL, CO2, GLUCOSE, BUN, CREATININE, CA)2022-06-02 13:56:04 Test Item Value Reference Range Interpretation Comments NA (test code = 137 mmol/L 135-145 1781568889) K (test code = 4.4 mmol/L 3.5-5.0 9753431024) CL (test code = 105 mmol/L 98-108 3508752494) CO2 TOTAL (test code 27 mmol/L 23-31 = 2956239271) AGAP (test code = 5 2-16 1150051561) BUN (test code = 19 mg/dL 7-23 6969893553) GLUCOSE (test code = 92 mg/dL 70-110 5160281495) CREATININE (test code 0.96 mg/dL 0.60-1.25 = 2578508544) CALCIUM (test code = 8.7 mg/dL 8.6-10.6 0641269612) eGFR (test code = 80.2 mL/min/1.73m2 9645722769) DEWAYNE (test code = DEWAYNE) Association of [...] or urine or abnormalities in imaging tests). [facility] METABOLIC PANEL (NA, K, CL, CO2, GLUCOSE, BUN, CREATININE, CA)2022-06-02 13:56:04 Test Item Value Reference Range Interpretation Comments NA (test code = 137 mmol/L 135-145 5503687456) K (test code = 4.4 mmol/L 3.5-5.0 7773164342) CL (test code = 105 mmol/L 98-108 6593738157) CO2 TOTAL (test code 27 mmol/L 23-31 = 5894634129) AGAP (test code = 5 2-16 9063056756) BUN (test code = 19 mg/dL 7-23 6370827497) GLUCOSE (test code = 92 mg/dL 70-110 9703424835) CREATININE (test code 0.96 mg/dL 0.60-1.25 = 1466650215) CALCIUM (test code = 8.7 mg/dL 8.6-10.6 8832692318) eGFR (test code = 80.2 mL/min/1.73m2 9126318422) DEWAYNE (test code = DEWAYNE) Association of [...] or urine or abnormalities in imaging tests). [facility] WITH [id number] 11:30:12 Test Item Value Reference Range Interpretation Comments WBC (test code = 8.75 See_Comment [Automated 3726-2) message] The sy stem which generated this result transmitted reference range : 4.20 - 10.70 10*3/?L. The reference range was not used to interpret this result as normal/abnormal . RBC (test code = 3.25 See_Comment L [Automated 829-8) message] The sy stem which generated this [...] RDW-SD (test code = 50.1 fL 38.5-51.6 57965-2) RDW-CV (test code = 15.8 % 12.1-15.4 H 788-0) PLT (test code = 239 See_Comment [Automated 777-3) message] The sy stem which generated this result transmitted reference range : 150 - 328 10*3/ ?L. The reference r mitra was not used to interpret this result as normal/abnormal . MPV (test code = 9.1 fL 9.8-13.0 L 85231-1) NRBC/100 WBC (test 0.8 See_Comment [Automat ed code = 4036944492) message] The system which generated this result transmitted reference range : 0.0 - 10.0 /100 WBCs. The refer ence range was not u sed to interpret th is result as normal/abnormal . NRBC x10^3 (test code 0.07 See_Comment [Auto mated = 9734559632) message] The s ystem which generated this result transmitted reference range : 10*3/?L. The reference range was not used to interpret this result as normal/abnormal . GRAN MAT (NEUT) % 56.4 % (test code = 770-8) IMM GRAN % (test code 6.70 % = 4561422195) LYMPH % (test code = 23.9 % 736-9) MONO % (test code = 7.3 % 5905-5) EOS % (test code = 4.9 % 713-8) BASO % (test code = 0.8 % 706-2) GRAN MAT x10^3(ANC) 4.93 10*3/uL 1.99-6.95 (test code = 9059620176) IMM GRAN x10^3 (test 0.59 10*3/uL 0.00-0.06 H code = 4563766278) LYMPH x10^3 (test code 2.09 10*3/uL 1.09-3.23 = 731-0) MONO x10^3 (test code 0.64 10*3/uL 0.36-1.02 = 742-7) EOS x10^3 (test code = 0.43 10*3/uL 0.06-0.53 711-2) BASO x10^3 (test code 0.07 10*3/uL 0.01-0.09 = 704-7) Lab Interpretation Abnormal (test code = 79565-1) [facility] WITH [id number] 11:30:12 Test Item Value Reference Range Interpretation [...] RDW-SD (test code = 50.1 fL 38.5-51.6 58589-7) RDW-CV (test code = 15.8 % 12.1-15.4 H 788-0) PLT (test code = 239 See_Comment [Automated 777-3) message] The sy stem which generated this result transmitted reference range : 150 - 328 10*3/ ?L. The reference r mitra was not used to interpret this result as normal/abnormal . MPV (test code = 9.1 fL 9.8-13.0 L 13579-3) NRBC/100 WBC (test 0.8 See_Comment [Automat ed code = 5809498329) message] The system which generated this result transmitted reference range : 0.0 - 10.0 /100 WBCs. The refer ence range was not u sed to interpret th is result as normal/abnormal . NRBC x10^3 (test code 0.07 See_Comment [Auto mated = 6878023272) message] The s ystem which generated this result transmitted reference range : 10*3/?L. The reference range was not used to interpret this result as normal/abnormal . GRAN MAT (NEUT) % 56.4 % (test code = 770-8) IMM GRAN % (test code 6.70 % = 5427253244) LYMPH % (test code = 23.9 % 736-9) MONO % (test code = 7.3 % 5905-5) EOS % (test code = 4.9 % 713-8) BASO % (test code = 0.8 % 706-2) GRAN MAT x10^3(ANC) 4.93 10*3/uL 1.99-6.95 (test code = 3729773553) IMM GRAN x10^3 (test 0.59 10*3/uL 0.00-0.06 H code = 4705552411) LYMPH x10^3 (test code 2.09 10*3/uL 1.09-3.23 = 731-0) MONO x10^3 (test code 0.64 10*3/uL 0.36-1.02 = 742-7) EOS x10^3 (test code = 0.43 10*3/uL 0.06-0.53 711-2) BASO x10^3 (test code 0.07 10*3/uL 0.01-0.09 = 704-7) Lab Interpretation Abnormal (test code = 32753-9) [facility] Test Item Value Reference Range Interpretation Comments MAGNESIUM (test code = 7901640707) 2.3 mg/dL 1.7-2.4 Lab Interpretation (test code = Normal 05201-4) [facility] 11:16:48 Test Item Value Reference Range Interpretation Comments PHOSPHORUS (test code = 6860794338) 4.8 mg/dL 2.5-5.0 Lab Interpretation (test code = Normal 35376-5) [facility] 11:16:48 Test Item Value Reference Range Interpretation Comments MAGNESIUM (test code = 4878651926) 2.3 mg/dL 1.7-2.4 Lab Interpretation (test code = Normal 25329-3) [facility] 11:16:48 Test Item Value Reference Range Interpretation Comments PHOSPHORUS (test code = 5201329305) 4.8 mg/dL 2.5-5.0 Lab Interpretation (test code = Normal 20717-1) [facility] WITH [id number] 11:58:20 Test Item Value Reference Range Interpretation Comments WBC (test code = 9.20 See_Comment [Automated 6690-2) message] The sy stem which generated this result transmitted reference range : 4.20 - 10.70 10*3/?L. The reference range was not used to interpret this result as normal/abnormal . RBC (test code = 3.18 See_Comment L [Automated 789-8) message] The sy [...] RDW-SD (test code = 48.3 fL 38.5-51.6 31927-8) RDW-CV (test code = 15.2 % 12.1-15.4 788-0) PLT (test code = 181 See_Comment [Automated 777-3) message] The sy stem which generated this result transmitted reference range : 150 - 328 10*3/ ?L. The reference r mitra was not used to interpret this result as normal/abnormal . MPV (test code = 9.4 fL 9.8-13.0 L 68393-6) NRBC/100 WBC (test 0.3 See_Comment [Automat ed code = 3859187709) message] The system which generated this result transmitted reference range : 0.0 - 10.0 /100 WBCs. The refer ence range was not u sed to interpret th is result as normal/abnormal . NRBC x10^3 (test code 0.03 See_Comment [Auto mated = 4324959030) message] The s ystem which generated this result transmitted reference range : 10*3/?L. The reference range was not used to interpret this result as normal/abnormal . GRAN MAT (NEUT) % 59.7 % (test code = 770-8) IMM GRAN % (test code 5.80 % = 8966555533) LYMPH % (test code = 21.3 % 736-9) MONO % (test code = 8.7 % 5905-5) EOS % (test code = 4.1 % 713-8) BASO % (test code = 0.4 % 706-2) GRAN MAT x10^3(ANC) 5.49 10*3/uL 1.99-6.95 (test code = 6765310345) IMM GRAN x10^3 (test 0.53 10*3/uL 0.00-0.06 H code = 3220946590) LYMPH x10^3 (test code 1.96 10*3/uL 1.09-3.23 = 731-0) MONO x10^3 (test code 0.80 10*3/uL 0.36-1.02 = 742-7) EOS x10^3 (test code = 0.38 10*3/uL 0.06-0.53 711-2) BASO x10^3 (test code 0.04 10*3/uL 0.01-0.09 = 704-7) Lab Interpretation Abnormal (test code = 55989-9) [facility] WITH [id number] 11:58:20 Test Item Value Reference Range Interpretation Comments WBC (test code = 9.20 See_Comment [Automated 5590-2) message] The sy stem which generated this result transmitted reference range : 4.20 - 10.70 10*3/?L. The reference range was not used to interpret this result as normal/abnormal . RBC (test code = 3.18 See_Comment L [Automated 789-8) message] The sy [...] RDW-SD (test code = 48.3 fL 38.5-51.6 08788-8) RDW-CV (test code = 15.2 % 12.1-15.4 788-0) PLT (test code = 181 See_Comment [Automated 777-3) message] The sy stem which generated this result transmitted reference range : 150 - 328 10*3/ ?L. The reference r mitra was not used to interpret this result as normal/abnormal . MPV (test code = 9.4 fL 9.8-13.0 L 55936-4) NRBC/100 WBC (test 0.3 See_Comment [Automat ed code = 7206804200) message] The system which generated this result transmitted reference range : 0.0 - 10.0 /100 WBCs. The refer ence range was not u sed to interpret th is result as normal/abnormal . NRBC x10^3 (test code 0.03 See_Comment [Auto mated = 9235251812) message] The s ystem which generated this result transmitted reference range : 10*3/?L. The reference range was not used to interpret this result as normal/abnormal . GRAN MAT (NEUT) % 59.7 % (test code = 770-8) IMM GRAN % (test code 5.80 % = 7926867316) LYMPH % (test code = 21.3 % 736-9) MONO % (test code = 8.7 % 5905-5) EOS % (test code = 4.1 % 713-8) BASO % (test code = 0.4 % 706-2) GRAN MAT x10^3(ANC) 5.49 10*3/uL 1.99-6.95 (test code = 9060358931) IMM GRAN x10^3 (test 0.53 10*3/uL 0.00-0.06 H code = 7055715191) LYMPH x10^3 (test code 1.96 10*3/uL 1.09-3.23 = 731-0) MONO x10^3 (test code 0.80 10*3/uL 0.36-1.02 = 742-7) EOS x10^3 (test code = 0.38 10*3/uL 0.06-0.53 711-2) BASO x10^3 (test code 0.04 10*3/uL 0.01-0.09 = 704-7) Lab Interpretation Abnormal (test code = 96441-6) [facility]55 Test Item Value Reference Range Interpretation Comments MAGNESIUM (test code = 1966901031) 2.3 mg/dL 1.7-2.4 Lab Interpretation (test code = Normal 14469-2) [facility] 11:41:55 Test Item Value Reference Range Interpretation Comments PHOSPHORUS (test code = 6107930054) 3.4 mg/dL 2.5-5.0 Lab Interpretation (test code = Normal 96922-2) [facility] (NA, K, CL, CO2, GLUCOSE, BUN, CREATININE, CA)2022-06-01 11:41:55 Test Item Value Reference Range Interpretation Comments NA (test code = 137 mmol/L 135-145 7788188773) K (test code = 4.1 mmol/L 3.5-5.0 2254206070) CL (test code = 105 mmol/L 98-108 8608711438) CO2 TOTAL (test code = 27 mmol/L 23-31 6190128887) AGAP (test code = 5 2-16 3933733448) BUN (test code = 17 mg/dL 7-23 1848907011) GLUCOSE (test code = 135 mg/dL 70-110 H 6545987873) CREATININE (test code = 0.84 mg/dL 0.60-1.25 5331470219) CALCIUM (test code = 8.4 mg/dL 8.6-10.6 L 0198714058) eGFR (test code = 93.5 mL/min/1.73m2 0754166013) DEWAYNE (test code = DEWAYNE) Association of [...] tests). Lab Interpretation Abnormal (test code = 24822-8) [facility] 11:[facility]:55 Test Item Value Reference Range Interpretation Comments MAGNESIUM (test code = 5347141576) 2.3 mg/dL 1.7-2.4 Lab Interpretation (test code = Normal 97497-0) [facility] 11:41:55 Test Item Value Reference Range Interpretation Comments PHOSPHORUS (test code = 3017418547) 3.4 mg/dL 2.5-5.0 Lab Interpretation (test code = Normal 58293-6) [facility] METABOLIC PANEL (NA, K, CL, CO2, GLUCOSE, BUN, CREATININE, CA)2022-06-01 11:41:55 Test Item Value Reference Range Interpretation Comments NA (test code = 137 mmol/L 135-145 2252483512) K (test code = 4.1 mmol/L 3.5-5.0 3229273717) CL (test code = 105 mmol/L 98-108 3118743920) CO2 TOTAL (test code = 27 mmol/L 23-31 3034586680) AGAP (test code = 5 2-16 4130918738) BUN (test code = 17 mg/dL 7-23 2436391918) GLUCOSE (test code = 135 mg/dL 70-110 H 7756171208) CREATININE (test code = 0.84 mg/dL 0.60-1.25 4966002547) CALCIUM (test code = 8.4 mg/dL 8.6-10.6 L 6121675122) eGFR (test code = 93.5 mL/min/1.73m2 7763975080) DEWAYNE (test code = DEWAYNE) Association of [...] tests). Lab Interpretation Abnormal (test code = 40891-7) [facility] WITH [id number] 12:02:32 Test Item Value Reference Range Interpretation [...] RDW-SD (test code = 46.6 fL 38.5-51.6 71012-1) RDW-CV (test code = 14.9 % 12.1-15.4 788-0) PLT (test code = 154 See_Comment [Automated 777-3) message] The sy stem which generated this result transmitted reference range : 150 - 328 10*3/ ?L. The reference r mitra was not used to interpret this result as normal/abnormal . MPV (test code = 9.5 fL 9.8-13.0 L 57415-7) NRBC/100 WBC (test 0.2 See_Comment [Automat ed code = 4673620928) message] The system which generated this result transmitted reference range : 0.0 - 10.0 /100 WBCs. The refer ence range was not u sed to interpret th is result as normal/abnormal . NRBC x10^3 (test code 0.02 See_Comment [Auto mated = 6784235994) message] The s ystem which generated this result transmitted reference range : 10*3/?L. The reference range was not used to interpret this result as normal/abnormal . GRAN MAT (NEUT) % 80.7 % (test code = 770-8) IMM GRAN % (test code 4.50 % = 8699522283) LYMPH % (test code = 6.5 % 736-9) MONO % (test code = 7.3 % 5905-5) EOS % (test code = 0.6 % 713-8) BASO % (test code = 0.4 % 706-2) GRAN MAT x10^3(ANC) 7.92 10*3/uL 1.99-6.95 H (test code = 6691602703) IMM GRAN x10^3 (test 0.44 10*3/uL 0.00-0.06 H code = 1233012167) LYMPH x10^3 (test code 0.64 10*3/uL 1.09-3.23 L = 731-0) MONO x10^3 (test code 0.72 10*3/uL 0.36-1.02 = 742-7) EOS x10^3 (test code = 0.06 10*3/uL 0.06-0.53 711-2) BASO x10^3 (test code 0.04 10*3/uL 0.01-0.09 = 704-7) MEAGHAN CELLS (test code 2+ See_Comment A [Auto mated = 2690-9) message] The sy stem which generated this result transmitted reference range : (none). The reference range was not used to interpret this result as normal/abnormal . REACT LYMPHS (test Rare code = 4702100244) Lab Interpretation Abnormal (test code = 15419-2) [facility] WITH [id number] 12:02:32 Test Item Value Reference Range Interpretation Comments WBC (test code = 9.82 See_Comment [Automated 6390-2) message] The sy stem which generated this [...] RDW-SD (test code = 46.6 fL 38.5-51.6 11616-5) RDW-CV (test code = 14.9 % 12.1-15.4 788-0) PLT (test code = 154 See_Comment [Automated 777-3) message] The sy stem which generated this result transmitted reference range : 150 - 328 10*3/ ?L. The reference r mitra was not used to interpret this result as normal/abnormal . MPV (test code = 9.5 fL 9.8-13.0 L 35064-1) NRBC/100 WBC (test 0.2 See_Comment [Automat ed code = 4911118545) message] The system which generated this result transmitted reference range : 0.0 - 10.0 /100 WBCs. The refer ence range was not u sed to interpret th is result as normal/abnormal . NRBC x10^3 (test code 0.02 See_Comment [Auto mated = 6769711683) message] The s ystem which generated this result transmitted reference range : 10*3/?L. The reference range was not used to interpret this result as normal/abnormal . GRAN MAT (NEUT) % 80.7 % (test code = 770-8) IMM GRAN % (test code 4.50 % = 6630368924) LYMPH % (test code = 6.5 % 736-9) MONO % (test code = 7.3 % 5905-5) EOS % (test code = 0.6 % 713-8) BASO % (test code = 0.4 % 706-2) GRAN MAT x10^3(ANC) 7.92 10*3/uL 1.99-6.95 H (test code = 1009380134) IMM GRAN x10^3 (test 0.44 10*3/uL 0.00-0.06 H code = 1833452046) LYMPH x10^3 (test code 0.64 10*3/uL 1.09-3.23 L = 731-0) MONO x10^3 (test code 0.72 10*3/uL 0.36-1.02 = 742-7) EOS x10^3 (test code = 0.06 10*3/uL 0.06-0.53 711-2) BASO x10^3 (test code 0.04 10*3/uL 0.01-0.09 = 704-7) MEAGHAN CELLS (test code 2+ See_Comment A [Auto mated = 2408-9) message] The sy stem which generated this result transmitted reference range : (none). The reference range was not used to interpret this result as normal/abnormal . REACT LYMPHS (test Rare code = 9388847623) Lab Interpretation Abnormal (test code = 97999-9) [facility] WITH [id number] 12:02:32 Test Item Value Reference Range Interpretation Comments WBC (test code = 9.82 See_Comment [Automated 8590-2) message] The sy stem which generated this result transmitted reference range : 4.20 - 10.70 10*3/?L. The reference range was not used to interpret this result as normal/abnormal . RBC (test code = 3.82 See_Comment L [Automated 729-8) message] The sy stem which generated this [...] RDW-SD (test code = 46.6 fL 38.5-51.6 22901-0) RDW-CV (test code = 14.9 % 12.1-15.4 788-0) PLT (test code = 154 See_Comment [Automated 777-3) message] The sy stem which generated this result transmitted reference range : 150 - 328 10*3/ ?L. The reference r mitra was not used to interpret this result as normal/abnormal . MPV (test code = 9.5 fL 9.8-13.0 L 56264-5) NRBC/100 WBC (test 0.2 See_Comment [Automat ed code = 2284031126) message] The system which generated this result transmitted reference range : 0.0 - 10.0 /100 WBCs. The refer ence range was not u sed to interpret th is result as normal/abnormal . NRBC x10^3 (test code 0.02 See_Comment [Auto mated = 1769487213) message] The s ystem which generated this result transmitted reference range : 10*3/?L. The reference range was not used to interpret this result as normal/abnormal . GRAN MAT (NEUT) % 80.7 % (test code = 770-8) IMM GRAN % (test code 4.50 % = 6787838593) LYMPH % (test code = 6.5 % 736-9) MONO % (test code = 7.3 % 5905-5) EOS % (test code = 0.6 % 713-8) BASO % (test code = 0.4 % 706-2) GRAN MAT x10^3(ANC) 7.92 10*3/uL 1.99-6.95 H (test code = 7988351304) IMM GRAN x10^3 (test 0.44 10*3/uL 0.00-0.06 H code = 5332924911) LYMPH x10^3 (test code 0.64 10*3/uL 1.09-3.23 L = 731-0) MONO x10^3 (test code 0.72 10*3/uL 0.36-1.02 = 742-7) EOS x10^3 (test code = 0.06 10*3/uL 0.06-0.53 711-2) BASO x10^3 (test code 0.04 10*3/uL 0.01-0.09 = 704-7) MEAGHAN CELLS (test code 2+ See_Comment A [Auto mated = 6414-9) message] The sy stem which generated this result transmitted reference range : (none). The reference range was not used to interpret this result as normal/abnormal . REACT LYMPHS (test Rare code = 9834345907) Lab Interpretation Abnormal (test code = 66019-4) [facility]:29 Test Item Value Reference Range Interpretation Comments MAGNESIUM (test code = 2109174789) 2.1 mg/dL 1.7-2.4 Lab Interpretation (test code = Normal 68203-7) [facility] 11:43:29 Test Item Value Reference Range Interpretation Comments PHOSPHORUS (test code = 0081365243) 3.7 mg/dL 2.5-5.0 Lab Interpretation (test code = Normal 76420-9) [facility] (NA, K, CL, CO2, GLUCOSE, BUN, CREATININE, CA)2022-05-31 11:43:29 Test Item Value Reference Range Interpretation Comments NA (test code = 133 mmol/L 135-145 L 4019767251) K (test code = 4.7 mmol/L 3.5-5.0 Slight 4247354693) hemolysis CL (test code = 104 mmol/L 98-108 0260518832) CO2 TOTAL (test code 25 mmol/L 23-31 = 3673914324) AGAP (test code = 4 2-16 1660216059) BUN (test code = 17 mg/dL 7-23 Slight 6850286840) hemolysis GLUCOSE (test code = 189 mg/dL 70-110 H 0151820569) CREATININE (test code 0.82 mg/dL 0.60-1.25 = 2870575268) CALCIUM (test code = 8.0 mg/dL 8.6-10.6 L 0016671642) eGFR (test code = 96.2 mL/min/1.73m2 8999496805) DEWAYNE (test code = DEWAYNE) Association of [...] tests). Lab Interpretation Abnormal (test code = 94395-0) [facility] 11:43:29 Test Item Value Reference Range Interpretation Comments MAGNESIUM (test code = 1073859237) 2.1 mg/dL 1.7-2.4 Lab Interpretation (test code = Normal 80876-6) [facility] 11:43:29 Test Item Value Reference Range Interpretation Comments PHOSPHORUS (test code = 9059871102) 3.7 mg/dL 2.5-5.0 Lab Interpretation (test code = Normal 38945-6) [facility] (NA, K, CL, CO2, GLUCOSE, BUN, CREATININE, CA)2022-05-31 11:43:29 Test Item Value Reference Range Interpretation Comments NA (test code = 133 mmol/L 135-145 L 7889120539) K (test code = 4.7 mmol/L 3.5-5.0 Slight 9849043952) hemolysis CL (test code = 104 mmol/L 98-108 3713410873) CO2 TOTAL (test code 25 mmol/L 23-31 = 1076446441) AGAP (test code = 4 2-16 2166543432) BUN (test code = 17 mg/dL 7-23 Slight 5161038094) hemolysis GLUCOSE (test code = 189 mg/dL 70-110 H 2569213872) CREATININE (test code 0.82 mg/dL 0.60-1.25 = 0340073257) CALCIUM (test code = 8.0 mg/dL 8.6-10.6 L 6365668280) eGFR (test code = 96.2 mL/min/1.73m2 1972186533) DEWAYNE (test code = DEWAYNE) Association of [...] tests). Lab Interpretation Abnormal (test code = 62851-2) [facility] 11:43:29 Test Item Value Reference Range Interpretation Comments MAGNESIUM (test code = 5239398734) 2.1 mg/dL 1.7-2.4 Lab Interpretation (test code = Normal 27051-5) [facility] 11:43:29 Test Item Value Reference Range Interpretation Comments PHOSPHORUS (test code = 3288402275) 3.7 mg/dL 2.5-5.0 Lab Interpretation (test code = Normal 05934-4) [facility] (NA, K, CL, CO2, GLUCOSE, BUN, CREATININE, CA)2022-05-31 11:43:29 Test Item Value Reference Range Interpretation Comments NA (test code = 133 mmol/L 135-145 L 0722588826) K (test code = 4.7 mmol/L 3.5-5.0 Slight 8225008778) hemolysis CL (test code = 104 mmol/L 98-108 1688662680) CO2 TOTAL (test code 25 mmol/L 23-31 = 0099627027) AGAP (test code = 4 2-16 5904082548) BUN (test code = 17 mg/dL 7-23 Slight 6912580773) hemolysis GLUCOSE (test code = 189 mg/dL 70-110 H 4727274613) CREATININE (test code 0.82 mg/dL 0.60-1.25 = 8818986368) CALCIUM (test code = 8.0 mg/dL 8.6-10.6 L 7194238954) eGFR (test code = 96.2 mL/min/1.73m2 0713290137) DEWAYNE (test code = DEWAYNE) Association of [...] tests). Lab Interpretation Abnormal (test code = 23548-1) [facility] Test Item Value Reference Range Interpretation Comments Fibrinogen (test code = 7978139429) 218 mg/dL 167-453 Lab Interpretation (test code = Normal 31934-3) [facility] Test Item Value Reference Range Interpretation Comments Fibrinogen (test code = 0118354532) 218 mg/dL 167-453 Lab Interpretation (test code = Normal 59609-6) [facility]:44 Test Item Value Reference Range Interpretation Comments Fibrinogen (test code = 5349717355) 218 mg/dL 167-453 Lab Interpretation (test code = Normal 56025-6) [facility] / [id number] 11:29:02 Test Item Value Reference Range Interpretation Comments PROTIME PATIENT (test 12.7 See_Comment H [Auto mated message] code = 5964-2) The system [email or web address] generated this result transmitted ref erence range: 10.1 - 1 2.6 Seconds. The reference range was not used to int erpret this result as normal/abnormal . INR (test code = 6301-6) 1.1 Nor mal INR <1.1; Warfarin Therap eutic range 2.0 to 3. 0 or 2.5 to 3.5, dep ending upon the indica tions. Lab Interpretation (test Abnormal code = 55167-4) [facility] Test Item Value Reference Range Interpretation Comments APTT Patient (test code 82 See_Comment H [Au tomated message] = 3173-2) The system mth sense generated this result transmitted ref erence range: 26 - 36 Seconds. The reference range was not used to int erpret this result as normal/abnormal . Lab Interpretation (test Abnormal code = 94244-3) [facility] / [id number] 11:29:02 Test Item Value Reference Range Interpretation Comments PROTIME PATIENT (test 12.7 See_Comment H [Auto mated message] code = 5964-2) The system [email or web address] generated this result transmitted ref erence range: 10.1 - 1 2.6 Seconds. The reference range was not used to int erpret this result as normal/abnormal . INR (test code = 6301-6) 1.1 Nor mal INR <1.1; Warfarin Therap eutic range 2.0 to 3. 0 or 2.5 to 3.5, dep ending upon the indica tions. Lab Interpretation (test Abnormal code = 35166-7) [facility] Test Item Value Reference Range Interpretation Comments APTT Patient (test code 82 See_Comment H [Au tomated message] = 3173-2) The system mth sense generated this result transmitted ref erence range: 26 - 36 Seconds. The reference range was not used to int erpret this result as normal/abnormal . Lab Interpretation (test Abnormal code = 45097-3) [facility] / [id number] 11:29:02 Test Item Value Reference Range Interpretation Comments PROTIME PATIENT (test 12.7 See_Comment H [Auto mated message] code = 5964-2) The system [email or web address] generated this result transmitted ref erence range: 10.1 - 1 2.6 Seconds. The reference range was not used to int erpret this result as normal/abnormal . INR (test code = 6301-6) 1.1 Nor mal INR <1.1; Warfarin Therap eutic range 2.0 to 3. 0 or 2.5 to 3.5, dep ending upon the indica tions. Lab Interpretation (test Abnormal code = 19375-4) [facility] Test Item Value Reference Range Interpretation Comments APTT Patient (test code 82 See_Comment H [Au tomated message] = 4373-2) The system mth sense generated this result transmitted ref erence range: 26 - 36 Seconds. The reference range was not used to int erpret this result as normal/abnormal . Lab Interpretation (test Abnormal code = 63770-9) [facility]2023-04-18 02:12:17 Test Item Value Reference Range Interpretation Comments Fibrinogen (test code = 8417411867) 124 mg/dL 167-453 L Lab Interpretation (test code = Abnormal 94508-6) [facility]2023-04-18 02:12:17 Test Item Value Reference Range Interpretation Comments Fibrinogen (test code = 1725079628) 124 mg/dL 167-453 L Lab Interpretation (test code = Abnormal 35389-4) [facility]2023-04-18 02:12:17 Test Item Value Reference Range Interpretation Comments Fibrinogen (test code = 9072272720) 124 mg/dL 167-453 L Lab Interpretation (test code = Abnormal 06228-1) [facility]2023-04-17 22:27:11 Test Item Value Reference Range Interpretation Comments Fibrinogen (test code = 2984400747) 108 mg/dL 167-453 L Lab Interpretation (test code = Abnormal 38547-1) [facility]11 Test Item Value Reference Range Interpretation Comments Fibrinogen (test code = 9005926574) 108 mg/dL 167-453 L Lab Interpretation (test code = Abnormal 38830-6) [facility]2023-04-17 22:27:11 Test Item Value Reference Range Interpretation Comments Fibrinogen (test code = 4053233959) 108 mg/dL 167-453 L Lab Interpretation (test code = Abnormal 95393-8) [facility]2023-04-17 18:54:36 Test Item Value Reference Range Interpretation Comments Fibrinogen (test code = 1160984511) 110 mg/dL 167-453 L Lab Interpretation (test code = Abnormal 78220-7) [facility]2023-04-17 18:54:36 Test Item Value Reference Range Interpretation Comments Fibrinogen (test code = 4306231998) 110 mg/dL 167-453 L Lab Interpretation (test code = Abnormal 09081-3) [facility]2023-04-17 18:54:36 Test Item Value Reference Range Interpretation Comments Fibrinogen (test code = 8397962819) 110 mg/dL 167-453 L Lab Interpretation (test code = Abnormal 54734-4) [facility]2023-04-17 18:54:36 Test Item Value Reference Range Interpretation Comments Fibrinogen (test code = 1440296097) 110 mg/dL 167-453 L Lab Interpretation (test code = Abnormal 85886-4) [facility]2023-04-17 15:54:43 Test Item Value Reference Range Interpretation Comments Fibrinogen (test code = 6485265754) 118 mg/dL 167-453 L Lab Interpretation (test code = Abnormal 22868-2) [facility]2023-04-17 15:54:43 Test Item Value Reference Range Interpretation Comments Fibrinogen (test code = 8283768922) 118 mg/dL 167-453 L Lab Interpretation (test code = Abnormal 48692-0) [facility]2023-04-17 15:54:43 Test Item Value Reference Range Interpretation Comments Fibrinogen (test code = 6091247931) 118 mg/dL 167-453 L Lab Interpretation (test code = Abnormal 81780-5) [facility]2023-04-17 15:54:43 Test Item Value Reference Range Interpretation Comments Fibrinogen (test code = 5003802300) 118 mg/dL 167-453 L Lab Interpretation (test code = Abnormal 66730-2) [facility]2023-04-17 13:43:27 Test Item Value Reference Range Interpretation Comments Fibrinogen (test code = 7438895319) 119 mg/dL 167-453 L Lab Interpretation (test code = Abnormal 77331-0) [facility] 13:43:27 Test Item Value Reference Range Interpretation Comments Fibrinogen (test code = 9955043273) 119 mg/dL 167-453 L Lab Interpretation (test code = Abnormal 52302-0) [facility]2023-04-17 13:43:27 Test Item Value Reference Range Interpretation Comments Fibrinogen (test code = 8150883128) 119 mg/dL 167-453 L Lab Interpretation (test code = Abnormal 37101-0) [facility]2023-04-17 13:43:27 Test Item Value Reference Range Interpretation Comments Fibrinogen (test code = 1790305439) 119 mg/dL 167-453 L Lab Interpretation (test code = Abnormal 74612-3) [facility]2023-04-17 11:50:10 Test Item Value Reference Range Interpretation Comments Fibrinogen (test code = 5643371497) 97 mg/dL 167-453 LL Lab Interpretation (test code = Abnormal 16955-1) [facility]10 Test Item Value Reference Range Interpretation Comments Fibrinogen (test code = 5614619740) 97 mg/dL 167-453 LL Lab Interpretation (test code = Abnormal 53438-3) [facility]2023-04-17 11:50:10 Test Item Value Reference Range Interpretation Comments Fibrinogen (test code = 4522154818) 97 mg/dL 167-453 LL Lab Interpretation (test code = Abnormal 80736-0) [facility]:10 Test Item Value Reference Range Interpretation Comments Fibrinogen (test code = 5870443898) 97 mg/dL 167-453 LL Lab Interpretation (test code = Abnormal 24951-2) [facility] WITH [id number] 10:13:04 Test Item Value Reference Range Interpretation [...] RDW-SD (test code = 45.3 fL 38.5-51.6 02614-9) RDW-CV (test code = 14.5 % 12.1-15.4 788-0) PLT (test code = 174 See_Comment [Automated 777-3) message] The sy stem which generated this result transmitted reference range : 150 - 328 10*3/ ?L. The reference r mitra was not used to interpret this result as normal/abnormal . MPV (test code = 8.9 fL 9.8-13.0 L 81489-0) NRBC/100 WBC (test 0.3 See_Comment [Automat ed code = 9126909619) message] The system which generated this result transmitted reference range : 0.0 - 10.0 /100 WBCs. The refer ence range was not u sed to interpret th is result as normal/abnormal . NRBC x10^3 (test code 0.03 See_Comment [Auto mated = 3607988998) message] The s ystem which generated this result transmitted reference range : 10*3/?L. The reference range was not used to interpret this result as normal/abnormal . GRAN MAT (NEUT) % 63.0 % (test code = 770-8) IMM GRAN % (test code 3.60 % = 1159777050) LYMPH % (test code = 17.5 % 736-9) MONO % (test code = 10.8 % 5905-5) EOS % (test code = 4.5 % 713-8) BASO % (test code = 0.6 % 706-2) GRAN MAT x10^3(ANC) 5.89 10*3/uL 1.99-6.95 (test code = 7905319697) IMM GRAN x10^3 (test 0.34 10*3/uL 0.00-0.06 H code = 5465372715) LYMPH x10^3 (test code 1.64 10*3/uL 1.09-3.23 = 731-0) MONO x10^3 (test code 1.01 10*3/uL 0.36-1.02 = 742-7) EOS x10^3 (test code = 0.42 10*3/uL 0.06-0.53 711-2) BASO x10^3 (test code 0.06 10*3/uL 0.01-0.09 = 704-7) REACT LYMPHS (test Rare code = 6782759641) Lab Interpretation Abnormal (test code = 86423-1) [facility] WITH [id number] 10:13:04 Test Item Value Reference Range Interpretation [...] RDW-SD (test code = 45.3 fL 38.5-51.6 48079-5) RDW-CV (test code = 14.5 % 12.1-15.4 788-0) PLT (test code = 174 See_Comment [Automated 777-3) message] The sy stem which generated this result transmitted reference range : 150 - 328 10*3/ ?L. The reference r mitra was not used to interpret this result as normal/abnormal . MPV (test code = 8.9 fL 9.8-13.0 L 52227-1) NRBC/100 WBC (test 0.3 See_Comment [Automat ed code = 5702958610) message] The system which generated this result transmitted reference range : 0.0 - 10.0 /100 WBCs. The refer ence range was not u sed to interpret th is result as normal/abnormal . NRBC x10^3 (test code 0.03 See_Comment [Auto mated = 6976038230) message] The s ystem which generated this result transmitted reference range : 10*3/?L. The reference range was not used to interpret this result as normal/abnormal . GRAN MAT (NEUT) % 63.0 % (test code = 770-8) IMM GRAN % (test code 3.60 % = 4210314617) LYMPH % (test code = 17.5 % 736-9) MONO % (test code = 10.8 % 5905-5) EOS % (test code = 4.5 % 713-8) BASO % (test code = 0.6 % 706-2) GRAN MAT x10^3(ANC) 5.89 10*3/uL 1.99-6.95 (test code = 1987925687) IMM GRAN x10^3 (test 0.34 10*3/uL 0.00-0.06 H code = 6746819290) LYMPH x10^3 (test code 1.64 10*3/uL 1.09-3.23 = 731-0) MONO x10^3 (test code 1.01 10*3/uL 0.36-1.02 = 742-7) EOS x10^3 (test code = 0.42 10*3/uL 0.06-0.53 711-2) BASO x10^3 (test code 0.06 10*3/uL 0.01-0.09 = 704-7) REACT LYMPHS (test Rare code = 4463992684) Lab Interpretation Abnormal (test code = 04293-9) [facility] WITH [id number] 10:13:04 Test Item Value Reference Range Interpretation [...] RDW-SD (test code = 45.3 fL 38.5-51.6 64560-1) RDW-CV (test code = 14.5 % 12.1-15.4 788-0) PLT (test code = 174 See_Comment [Automated 777-3) message] The sy stem which generated this result transmitted reference range : 150 - 328 10*3/ ?L. The reference r mitra was not used to interpret this result as normal/abnormal . MPV (test code = 8.9 fL 9.8-13.0 L 72324-3) NRBC/100 WBC (test 0.3 See_Comment [Automat ed code = 8694731758) message] The system which generated this result transmitted reference range : 0.0 - 10.0 /100 WBCs. The refer ence range was not u sed to interpret th is result as normal/abnormal . NRBC x10^3 (test code 0.03 See_Comment [Auto mated = 1618872539) message] The s ystem which generated this result transmitted reference range : 10*3/?L. The reference range was not used to interpret this result as normal/abnormal . GRAN MAT (NEUT) % 63.0 % (test code = 770-8) IMM GRAN % (test code 3.60 % = 4128536336) LYMPH % (test code = 17.5 % 736-9) MONO % (test code = 10.8 % 5905-5) EOS % (test code = 4.5 % 713-8) BASO % (test code = 0.6 % 706-2) GRAN MAT x10^3(ANC) 5.89 10*3/uL 1.99-6.95 (test code = 6763863333) IMM GRAN x10^3 (test 0.34 10*3/uL 0.00-0.06 H code = 7745206707) LYMPH x10^3 (test code 1.64 10*3/uL 1.09-3.23 = 731-0) MONO x10^3 (test code 1.01 10*3/uL 0.36-1.02 = 742-7) EOS x10^3 (test code = 0.42 10*3/uL 0.06-0.53 711-2) BASO x10^3 (test code 0.06 10*3/uL 0.01-0.09 = 704-7) REACT LYMPHS (test Rare code = 2544263007) Lab Interpretation Abnormal (test code = 68683-2) [facility] WITH [id number] 10:13:04 Test Item Value Reference Range Interpretation Comments WBC (test code = 9.36 See_Comment [Automated 5590-2) message] The sy stem which generated this result transmitted reference range : 4.20 - 10.70 10*3/?L. The reference range was not used to interpret this result as normal/abnormal . RBC (test code = 4.03 See_Comment L [Automated 879-8) message] The sy stem which generated this [...] RDW-SD (test code = 45.3 fL 38.5-51.6 90607-0) RDW-CV (test code = 14.5 % 12.1-15.4 788-0) PLT (test code = 174 See_Comment [Automated 777-3) message] The sy stem which generated this result transmitted reference range : 150 - 328 10*3/ ?L. The reference r mitra was not used to interpret this result as normal/abnormal . MPV (test code = 8.9 fL 9.8-13.0 L 51294-1) NRBC/100 WBC (test 0.3 See_Comment [Automat ed code = 4610062553) message] The system which generated this result transmitted reference range : 0.0 - 10.0 /100 WBCs. The refer ence range was not u sed to interpret th is result as normal/abnormal . NRBC x10^3 (test code 0.03 See_Comment [Auto mated = 1107572104) message] The s ystem which generated this result transmitted reference range : 10*3/?L. The reference range was not used to interpret this result as normal/abnormal . GRAN MAT (NEUT) % 63.0 % (test code = 770-8) IMM GRAN % (test code 3.60 % = 6177209624) LYMPH % (test code = 17.5 % 736-9) MONO % (test code = 10.8 % 5905-5) EOS % (test code = 4.5 % 713-8) BASO % (test code = 0.6 % 706-2) GRAN MAT x10^3(ANC) 5.89 10*3/uL 1.99-6.95 (test code = 9120232751) IMM GRAN x10^3 (test 0.34 10*3/uL 0.00-0.06 H code = 2020433086) LYMPH x10^3 (test code 1.64 10*3/uL 1.09-3.23 = 731-0) MONO x10^3 (test code 1.01 10*3/uL 0.36-1.02 = 742-7) EOS x10^3 (test code = 0.42 10*3/uL 0.06-0.53 711-2) BASO x10^3 (test code 0.06 10*3/uL 0.01-0.09 = 704-7) REACT LYMPHS (test Rare code = 8448914026) Lab Interpretation Abnormal (test code = 30467-6) [facility] Test Item Value Reference Range Interpretation Comments PHOSPHORUS (test code = 5571733262) 4.2 mg/dL 2.5-5.0 Lab Interpretation (test code = Normal 54178-5) [facility] 10:10:03 Test Item Value Reference Range Interpretation Comments MAGNESIUM (test code = 2121789699) 2.0 mg/dL 1.7-2.4 Lab Interpretation (test code = Normal 54590-1) [facility] (NA, K, CL, CO2, GLUCOSE, BUN, CREATININE, CA)2022-05-30 10:10:03 Test Item Value Reference Range Interpretation Comments NA (test code = 133 mmol/L 135-145 L 6621077823) K (test code = 3.9 mmol/L 3.5-5.0 8934206154) CL (test code = 103 mmol/L 98-108 9022506586) CO2 TOTAL (test code = 25 mmol/L 23-31 9029700236) AGAP (test code = 5 2-16 8109341752) BUN (test code = 22 mg/dL 7-23 4269737929) GLUCOSE (test code = 128 mg/dL 70-110 H 5231217822) CREATININE (test code = 0.87 mg/dL 0.60-1.25 3632870711) CALCIUM (test code = 8.2 mg/dL 8.6-10.6 L 7676820667) eGFR (test code = 89.8 mL/min/1.73m2 1841063399) DEWAYNE (test code = DEWAYNE) Association of [...] tests). Lab Interpretation Abnormal (test code = 99563-7) [facility] 10:10:03 Test Item Value Reference Range Interpretation Comments PHOSPHORUS (test code = 8234236806) 4.2 mg/dL 2.5-5.0 Lab Interpretation (test code = Normal 89502-1) [facility] 10:10:03 Test Item Value Reference Range Interpretation Comments MAGNESIUM (test code = 2550122788) 2.0 mg/dL 1.7-2.4 Lab Interpretation (test code = Normal 52268-1) [facility] (NA, K, CL, CO2, GLUCOSE, BUN, CREATININE, CA)2022-05-30 10:10:03 Test Item Value Reference Range Interpretation Comments NA (test code = 133 mmol/L 135-145 L 8587114762) K (test code = 3.9 mmol/L 3.5-5.0 4679269632) CL (test code = 103 mmol/L 98-108 8636730071) CO2 TOTAL (test code = 25 mmol/L 23-31 8339263705) AGAP (test code = 5 2-16 8895949437) BUN (test code = 22 mg/dL 7-23 8080314675) GLUCOSE (test code = 128 mg/dL 70-110 H 1640725792) CREATININE (test code = 0.87 mg/dL 0.60-1.25 6414203560) CALCIUM (test code = 8.2 mg/dL 8.6-10.6 L 8371884344) eGFR (test code = 89.8 mL/min/1.73m2 2071510878) DEWAYNE (test code = DEWAYNE) Association of [...] tests). Lab Interpretation Abnormal (test code = 47091-6) [facility] 10:10:03 Test Item Value Reference Range Interpretation Comments PHOSPHORUS (test code = 4916535984) 4.2 mg/dL 2.5-5.0 Lab Interpretation (test code = Normal 60843-3) [facility] 10:10:03 Test Item Value Reference Range Interpretation Comments MAGNESIUM (test code = 5578296080) 2.0 mg/dL 1.7-2.4 Lab Interpretation (test code = Normal 99170-4) [facility] (NA, K, CL, CO2, GLUCOSE, BUN, CREATININE, CA)2022-05-30 10:10:03 Test Item Value Reference Range Interpretation Comments NA (test code = 133 mmol/L 135-145 L 7669090205) K (test code = 3.9 mmol/L 3.5-5.0 5269980721) CL (test code = 103 mmol/L 98-108 9400796798) CO2 TOTAL (test code = 25 mmol/L 23-31 4984169820) AGAP (test code = 5 2-16 5317813551) BUN (test code = 22 mg/dL 7-23 9483467879) GLUCOSE (test code = 128 mg/dL 70-110 H 4380446650) CREATININE (test code = 0.87 mg/dL 0.60-1.25 3559137929) CALCIUM (test code = 8.2 mg/dL 8.6-10.6 L 3365106412) eGFR (test code = 89.8 mL/min/1.73m2 9004822422) DEWAYNE (test code = DEWAYNE) Association of [...] tests). Lab Interpretation Abnormal (test code = 49751-1) [facility] 10:10:03 Test Item Value Reference Range Interpretation Comments PHOSPHORUS (test code = 3619029639) 4.2 mg/dL 2.5-5.0 Lab Interpretation (test code = Normal 32839-4) [facility] 10:10:03 Test Item Value Reference Range Interpretation Comments MAGNESIUM (test code = 8353944099) 2.0 mg/dL 1.7-2.4 Lab Interpretation (test code = Normal 83358-9) [facility] (NA, K, CL, CO2, GLUCOSE, BUN, CREATININE, CA)2022-05-30 10:10:03 Test Item Value Reference Range Interpretation Comments NA (test code = 133 mmol/L 135-145 L 4792999904) K (test code = 3.9 mmol/L 3.5-5.0 9886788131) CL (test code = 103 mmol/L 98-108 0097239451) CO2 TOTAL (test code = 25 mmol/L 23-31 8224373063) AGAP (test code = 5 2-16 9042396444) BUN (test code = 22 mg/dL 7-23 0738320936) GLUCOSE (test code = 128 mg/dL 70-110 H 7779459759) CREATININE (test code = 0.87 mg/dL 0.60-1.25 0834317434) CALCIUM (test code = 8.2 mg/dL 8.6-10.6 L 3326137343) eGFR (test code = 89.8 mL/min/1.73m2 5881706638) DEWAYNE (test code = DEWAYNE) Association of [...] tests). Lab Interpretation Abnormal (test code = 89174-7) [facility] Test Item Value Reference Range Interpretation Comments Fibrinogen (test code = 8726137446) 86 mg/dL 167-453 LL Lab Interpretation (test code = Abnormal 54414-6) [facility] 09:52:38 Test Item Value Reference Range Interpretation Comments Fibrinogen (test code = 2974420392) 86 mg/dL 167-453 LL Lab Interpretation (test code = Abnormal 09799-0) [address]04-17 09:52:38 Test Item Value Reference Range Interpretation Comments Fibrinogen (test code = 7416381716) 86 mg/dL 167-453 LL Lab Interpretation (test code = Abnormal 77861-6) [address]04-17 09:52:38 Test Item Value Reference Range Interpretation Comments Fibrinogen (test code = 9557884599) 86 mg/dL 167-453 LL Lab Interpretation (test code = Abnormal 58607-8) [address]04-17 09:51:57 Test Item Value Reference Range Interpretation Comments APTT Patient (test code 44 See_Comment H [Au tomated message] = 3173-2) The system mth sense generated this result transmitted ref erence range: 26 - 36 Seconds. The reference range was not used to int erpret this result as normal/abnormal . Lab Interpretation (test Abnormal code = 46593-7) [address]04-17 09:51:57 Test Item Value Reference Range Interpretation Comments APTT Patient (test code 44 See_Comment H [Au tomated message] = 3173-2) The system mth sense generated this result transmitted ref erence range: 26 - 36 Seconds. The reference range was not used to int erpret this result as normal/abnormal . Lab Interpretation (test Abnormal code = 61718-5) [address]04-17 09:51:57 Test Item Value Reference Range Interpretation Comments APTT Patient (test code 44 See_Comment H [Au tomated message] = 3173-2) The system mth sense generated this result transmitted ref erence range: 26 - 36 Seconds. The reference range was not used to int erpret this result as normal/abnormal . Lab Interpretation (test Abnormal code = 73563-9) [address]04-17 09:51:57 Test Item Value Reference Range Interpretation Comments APTT Patient (test code 44 See_Comment H [Au tomated message] = 3173-2) The system mth sense generated this result transmitted ref erence range: 26 - 36 Seconds. The reference range was not used to int erpret this result as normal/abnormal . Lab Interpretation (test Abnormal code = 26035-1) [facility]2023-04-17 07:28:55 Test Item Value Reference Range Interpretation Comments Fibrinogen (test code = 3811034873) 73 mg/dL 167-453 LL Lab Interpretation (test code = Abnormal 43136-3) [facility]2023-04-17 07:28:55 Test Item Value Reference Range Interpretation Comments Fibrinogen (test code = 1910396832) 73 mg/dL 167-453 LL Lab Interpretation (test code = Abnormal 87127-6) [facility]2023-04-17 07:28:55 Test Item Value Reference Range Interpretation Comments Fibrinogen (test code = 9717828274) 73 mg/dL 167-453 LL Lab Interpretation (test code = Abnormal 46173-4) [facility]2023-04-17 07:28:55 Test Item Value Reference Range Interpretation Comments Fibrinogen (test code = 6728381956) 73 mg/dL 167-453 LL Lab Interpretation (test code = Abnormal 30149-4) [facility] (for use with Heparin Drip)2022-05-30 06:39:14 Test Item Value Reference Range Interpretation Comments APTT Patient (test code 44 See_Comment H [Au tomated message] = 3173-2) The system mth sense generated this result transmitted ref erence range: 26 - 36 Seconds. The reference range was not used to int erpret this result as normal/abnormal . Lab Interpretation (test Abnormal code = 64754-3) [facility] (for use with Heparin Drip)2022-05-30 06:39:14 Test Item Value Reference Range Interpretation Comments APTT Patient (test code 44 See_Comment H [Au tomated message] = 3173-2) The system mth sense generated this result transmitted ref erence range: 26 - 36 Seconds. The reference range was not used to int erpret this result as normal/abnormal . Lab Interpretation (test Abnormal code = 91779-3) [facility] (for use with Heparin Drip)2022-05-30 06:39:14 Test Item Value Reference Range Interpretation Comments APTT Patient (test code 44 See_Comment H [Au tomated message] = 3173-2) The system mth sense generated this result transmitted ref erence range: 26 - 36 Seconds. The reference range was not used to int erpret this result as normal/abnormal . Lab Interpretation (test Abnormal code = 48352-5) [facility] D[facility]2022-[facility]-30 06:39:14 Test Item Value Reference Range Interpretation Comments APTT Patient (test code 44 See_Comment H [Au tomated message] = 3173-2) The system mth sense generated this result transmitted ref erence range: 26 - 36 Seconds. The reference range was not used to int erpret this result as normal/abnormal . Lab Interpretation (test Abnormal code = 64957-3) [facility]:04 Test Item Value Reference Range Interpretation Comments Fibrinogen (test code = 3814459315) 71 mg/dL 167-453 LL Lab Interpretation (test code = Abnormal 12749-1) [facility] 05:26:04 Test Item Value Reference Range Interpretation Comments Fibrinogen (test code = 8850481823) 71 mg/dL 167-453 LL Lab Interpretation (test code = Abnormal 40230-1) [facility] [facility] Test Item Value Reference Range Interpretation Comments Fibrinogen (test code = 6067774270) 71 mg/dL 167-453 LL Lab Interpretation (test code = Abnormal 74344-0) [facility] Test Item Value Reference Range Interpretation Comments Fibrinogen (test code = 6545074357) 71 mg/dL 167-453 LL Lab Interpretation (test code = Abnormal 55313-1) [facility] Test Item Value Reference Range Interpretation Comments Fibrinogen (test code = 0547075464) 98 mg/dL 167-453 LL Lab Interpretation (test code = Abnormal 69440-6) [facility]05 Test Item Value Reference Range Interpretation Comments Fibrinogen (test code = 3726729537) 98 mg/dL 167-453 LL Lab Interpretation (test code = Abnormal 15796-0) [facility]2023-04-16 23:49:05 Test Item Value Reference Range Interpretation Comments Fibrinogen (test code = 1048704857) 98 mg/dL 167-453 LL Lab Interpretation (test code = Abnormal 23931-4) [facility]2023-04-16 23:49:05 Test Item Value Reference Range Interpretation Comments Fibrinogen (test code = 2819077521) 98 mg/dL 167-453 LL Lab Interpretation (test code = Abnormal 84715-9) [facility]2023-04-16 21:48:37 Test Item Value Reference Range Interpretation Comments Fibrinogen (test code = 6260738111) 113 mg/dL 167-453 L Lab Interpretation (test code = Abnormal 98795-4) [facility]2023-04-16 21:48:37 Test Item Value Reference Range Interpretation Comments Fibrinogen (test code = 2961922231) 113 mg/dL 167-453 L Lab Interpretation (test code = Abnormal 99019-7) [facility]2023-04-16 21:48:37 Test Item Value Reference Range Interpretation Comments Fibrinogen (test code = 6040646983) 113 mg/dL 167-453 L Lab Interpretation (test code = Abnormal 24357-0) [facility]2023-04-16 21:48:37 Test Item Value Reference Range Interpretation Comments Fibrinogen (test code = 7695257779) 113 mg/dL 167-453 L Lab Interpretation (test code = Abnormal 53363-2) [facility] METABOLIC PANEL (NA, K, CL, CO2, GLUCOSE, BUN, CREATININE, CA)2022-05-29 15:33:06 Test Item Value Reference Range Interpretation Comments NA (test code = 139 mmol/L 135-145 4734726398) K (test code = 4.2 mmol/L 3.5-5.0 5817584862) CL (test code = 104 mmol/L 98-108 4488680392) CO2 TOTAL (test code = 29 mmol/L 23-31 1055696011) AGAP (test code = 6 2-16 4328449576) BUN (test code = 25 mg/dL 7-23 H 8164238065) GLUCOSE (test code = 85 mg/dL 70-110 6705326847) CREATININE (test code = 1.02 mg/dL 0.60-1.25 2830307117) CALCIUM (test code = 8.7 mg/dL 8.6-10.6 3131153144) eGFR (test code = 74.8 mL/min/1.73m2 4796043480) DEWAYNE (test code = DEWAYNE) Association of [...] tests). Lab Interpretation Abnormal (test code = 70720-9) [facility] METABOLIC PANEL (NA, K, CL, CO2, GLUCOSE, BUN, CREATININE, CA)2022-05-29 15:33:06 Test Item Value Reference Range Interpretation Comments NA (test code = 139 mmol/L 135-145 7738862499) K (test code = 4.2 mmol/L 3.5-5.0 2932276882) CL (test code = 104 mmol/L 98-108 3727387217) CO2 TOTAL (test code = 29 mmol/L 23-31 4734526707) AGAP (test code = 6 2-16 1444800475) BUN (test code = 25 mg/dL 7-23 H 5210201607) GLUCOSE (test code = 85 mg/dL 70-110 9664449276) CREATININE (test code = 1.02 mg/dL 0.60-1.25 2704115465) CALCIUM (test code = 8.7 mg/dL 8.6-10.6 1527012147) eGFR (test code = 74.8 mL/min/1.73m2 8088117418) DEWAYNE (test code = DEWAYNE) Association of [...] tests). Lab Interpretation Abnormal (test code = 58905-5) [facility] METABOLIC PANEL (NA, K, CL, CO2, GLUCOSE, BUN, CREATININE, CA)2022-05-29 15:33:06 Test Item Value Reference Range Interpretation Comments NA (test code = 139 mmol/L 135-145 4337550344) K (test code = 4.2 mmol/L 3.5-5.0 6629311653) CL (test code = 104 mmol/L 98-108 3631542284) CO2 TOTAL (test code = 29 mmol/L 23-31 0498323384) AGAP (test code = 6 2-16 9266285317) BUN (test code = 25 mg/dL 7-23 H 5975712046) GLUCOSE (test code = 85 mg/dL 70-110 4488847469) CREATININE (test code = 1.02 mg/dL 0.60-1.25 4237355149) CALCIUM (test code = 8.7 mg/dL 8.6-10.6 3014072740) eGFR (test code = 74.8 mL/min/1.73m2 6102377938) DEWAYNE (test code = DEWAYNE) Association of [...] tests). Lab Interpretation Abnormal (test code = 65402-6) [facility] METABOLIC PANEL (NA, K, CL, CO2, GLUCOSE, BUN, CREATININE, CA)2022-05-29 15:33:06 Test Item Value Reference Range Interpretation Comments NA (test code = 139 mmol/L 135-145 5497101451) K (test code = 4.2 mmol/L 3.5-5.0 6791153890) CL (test code = 104 mmol/L 98-108 1609086002) CO2 TOTAL (test code = 29 mmol/L 23-31 0147059310) AGAP (test code = 6 2-16 8638250477) BUN (test code = 25 mg/dL 7-23 H 1725796262) GLUCOSE (test code = 85 mg/dL 70-110 2629814412) CREATININE (test code = 1.02 mg/dL 0.60-1.25 8433956062) CALCIUM (test code = 8.7 mg/dL 8.6-10.6 6366484001) eGFR (test code = 74.8 mL/min/1.73m2 2061092147) DEWAYNE (test code = DEWYANE) Association of Glomerular Filtration Rate (GFR) and [...] tests). Lab Interpretation Abnormal (test code = 81453-4) [facility] Test Item Value Reference Range Interpretation Comments Fibrinogen (test code = 4588217261) 368 mg/dL 167-453 Lab Interpretation (test code = Normal 08782-5) [facility] 15:15:42 Test Item Value Reference Range Interpretation Comments Fibrinogen (test code = 6000718314) 368 mg/dL 167-453 Lab Interpretation (test code = Normal 00935-3) [facility]:15:42 Test Item Value Reference Range Interpretation Comments Fibrinogen (test code = 2025129229) 368 mg/dL 167-453 Lab Interpretation (test code = Normal 98852-2) [facility] Test Item Value Reference Range Interpretation Comments Fibrinogen (test code = 6188895083) 368 mg/dL 167-453 Lab Interpretation (test code = Normal 87817-8) [facility] WITH [id number] 15:09:40 Test Item Value Reference Range Interpretation Comments WBC (test code = 8.27 See_Comment [Automated 1890-2) message] The sy stem which generated this result transmitted reference range : 4.20 - 10.70 10*3/?L. The reference range was not used to interpret this result as normal/abnormal . RBC (test code = 4.18 See_Comment L [Automated 299-8) message] The sy stem which generated this [...] RDW-SD (test code = 47.6 fL 38.5-51.6 95570-7) RDW-CV (test code = 14.7 % 12.1-15.4 788-0) PLT (test code = 252 See_Comment [Automated 777-3) message] The sy stem which generated this result transmitted reference range : 150 - 328 10*3/ ?L. The reference r mitra was not used to interpret this result as normal/abnormal . MPV (test code = 9.1 fL 9.8-13.0 L 60740-3) NRBC/100 WBC (test 0.0 See_Comment [Automat ed code = 4627096395) message] The system which generated this result transmitted reference range : 0.0 - 10.0 /100 WBCs. The refer ence range was not u sed to interpret th is result as normal/abnormal . NRBC x10^3 (test code See_Comment [Auto mated = 4249947444) message] The s ystem which generated this result transmitted reference range : 10*3/?L. The reference range was not used to interpret this result as normal/abnormal . GRAN MAT (NEUT) % 53.7 % (test code = 770-8) IMM GRAN % (test code 1.90 % = 5832803006) LYMPH % (test code = 29.6 % 736-9) MONO % (test code = 8.1 % 5905-5) EOS % (test code = 5.7 % 713-8) BASO % (test code = 1.0 % 706-2) GRAN MAT x10^3(ANC) 4.44 10*3/uL 1.99-6.95 (test code = 0583522587) IMM GRAN x10^3 (test 0.16 10*3/uL 0.00-0.06 H code = 4472590879) LYMPH x10^3 (test code 2.45 10*3/uL 1.09-3.23 = 731-0) MONO x10^3 (test code 0.67 10*3/uL 0.36-1.02 = 742-7) EOS x10^3 (test code = 0.47 10*3/uL 0.06-0.53 711-2) BASO x10^3 (test code 0.08 10*3/uL 0.01-0.09 = 704-7) Lab Interpretation Abnormal (test code = 90966-9) [facility] WITH [id number] 15:09:40 Test Item Value Reference Range Interpretation [...] RDW-SD (test code = 47.6 fL 38.5-51.6 63685-6) RDW-CV (test code = 14.7 % 12.1-15.4 788-0) PLT (test code = 252 See_Comment [Automated 777-3) message] The sy stem which generated this result transmitted reference range : 150 - 328 10*3/ ?L. The reference r mitra was not used to interpret this result as normal/abnormal . MPV (test code = 9.1 fL 9.8-13.0 L 68042-1) NRBC/100 WBC (test 0.0 See_Comment [Automat ed code = 4085105576) message] The system which generated this result transmitted reference range : 0.0 - 10.0 /100 WBCs. The refer ence range was not u sed to interpret th is result as normal/abnormal . NRBC x10^3 (test code See_Comment [Auto mated = 7726395455) message] The s ystem which generated this result transmitted reference range : 10*3/?L. The reference range was not used to interpret this result as normal/abnormal . GRAN MAT (NEUT) % 53.7 % (test code = 770-8) IMM GRAN % (test code 1.90 % = 3378593619) LYMPH % (test code = 29.6 % 736-9) MONO % (test code = 8.1 % 5905-5) EOS % (test code = 5.7 % 713-8) BASO % (test code = 1.0 % 706-2) GRAN MAT x10^3(ANC) 4.44 10*3/uL 1.99-6.95 (test code = 5917960639) IMM GRAN x10^3 (test 0.16 10*3/uL 0.00-0.06 H code = 7317850213) LYMPH x10^3 (test code 2.45 10*3/uL 1.09-3.23 = 731-0) MONO x10^3 (test code 0.67 10*3/uL 0.36-1.02 = 742-7) EOS x10^3 (test code = 0.47 10*3/uL 0.06-0.53 711-2) BASO x10^3 (test code 0.08 10*3/uL 0.01-0.09 = 704-7) Lab Interpretation Abnormal (test code = 07519-6) [facility] WITH [id number] 15:09:40 Test Item Value Reference Range Interpretation [...] RDW-SD (test code = 47.6 fL 38.5-51.6 94440-5) RDW-CV (test code = 14.7 % 12.1-15.4 788-0) PLT (test code = 252 See_Comment [Automated 777-3) message] The sy stem which generated this result transmitted reference range : 150 - 328 10*3/ ?L. The reference r mitra was not used to interpret this result as normal/abnormal . MPV (test code = 9.1 fL 9.8-13.0 L 81279-0) NRBC/100 WBC (test 0.0 See_Comment [Automat ed code = 0116774998) message] The system which generated this result transmitted reference range : 0.0 - 10.0 /100 WBCs. The refer ence range was not u sed to interpret th is result as normal/abnormal . NRBC x10^3 (test code See_Comment [Auto mated = 2256443416) message] The s ystem which generated this result transmitted reference range : 10*3/?L. The reference range was not used to interpret this result as normal/abnormal . GRAN MAT (NEUT) % 53.7 % (test code = 770-8) IMM GRAN % (test code 1.90 % = 7165131172) LYMPH % (test code = 29.6 % 736-9) MONO % (test code = 8.1 % 5905-5) EOS % (test code = 5.7 % 713-8) BASO % (test code = 1.0 % 706-2) GRAN MAT x10^3(ANC) 4.44 10*3/uL 1.99-6.95 (test code = 7510830027) IMM GRAN x10^3 (test 0.16 10*3/uL 0.00-0.06 H code = 1455063506) LYMPH x10^3 (test code 2.45 10*3/uL 1.09-3.23 = 731-0) MONO x10^3 (test code 0.67 10*3/uL 0.36-1.02 = 742-7) EOS x10^3 (test code = 0.47 10*3/uL 0.06-0.53 711-2) BASO x10^3 (test code 0.08 10*3/uL 0.01-0.09 = 704-7) Lab Interpretation Abnormal (test code = 81480-5) [facility] WITH [id number] 15:09:40 Test Item Value Reference Range Interpretation [...] RDW-SD (test code = 47.6 fL 38.5-51.6 96855-6) RDW-CV (test code = 14.7 % 12.1-15.4 788-0) PLT (test code = 252 See_Comment [Automated 777-3) message] The sy stem which generated this result transmitted reference range : 150 - 328 10*3/ ?L. The reference r mitra was not used to interpret this result as normal/abnormal . MPV (test code = 9.1 fL 9.8-13.0 L 20285-2) NRBC/100 WBC (test 0.0 See_Comment [Automat ed code = 1348132386) message] The system which generated this result transmitted reference range : 0.0 - 10.0 /100 WBCs. The refer ence range was not u sed to interpret th is result as normal/abnormal . NRBC x10^3 (test code See_Comment [Auto mated = 8705153282) message] The s ystem which generated this result transmitted reference range : 10*3/?L. The reference range was not used to interpret this result as normal/abnormal . GRAN MAT (NEUT) % 53.7 % (test code = 770-8) IMM GRAN % (test code 1.90 % = 5165163176) LYMPH % (test code = 29.6 % 736-9) MONO % (test code = 8.1 % 5905-5) EOS % (test code = 5.7 % 713-8) BASO % (test code = 1.0 % 706-2) GRAN MAT x10^3(ANC) 4.44 10*3/uL 1.99-6.95 (test code = 0883595235) IMM GRAN x10^3 (test 0.16 10*3/uL 0.00-0.06 H code = 8211852108) LYMPH x10^3 (test code 2.45 10*3/uL 1.09-3.23 = 731-0) MONO x10^3 (test code 0.67 10*3/uL 0.36-1.02 = 742-7) EOS x10^3 (test code = 0.47 10*3/uL 0.06-0.53 711-2) BASO x10^3 (test code 0.08 10*3/uL 0.01-0.09 = 704-7) Lab Interpretation Abnormal (test code = 83839-4) [facility] (for use with Heparin Infusion)2022-05-29 11:36:15 Test Item Value Reference Range Interpretation Comments APTT Patient (test code 52 See_Comment H [Au tomated message] = 3173-2) The system mth sense generated this result transmitted ref erence range: 26 - 36 Seconds. The reference range was not used to int erpret this result as normal/abnormal . Lab Interpretation (test Abnormal code = 54749-9) [facility] (for use with Heparin Infusion)2022-05-29 11:36:15 Test Item Value Reference Range Interpretation Comments APTT Patient (test code 52 See_Comment H [Au tomated message] = 3173-2) The system [employer] sense generated this result transmitted ref erence range: 26 - 36 Seconds. The reference range was not used to int erpret this result as normal/abnormal . Lab Interpretation (test Abnormal code = 35216-9) [facility] (for use with Heparin Infusion)2022-05-29 11:36:15 Test Item Value Reference Range Interpretation Comments APTT Patient (test code 52 See_Comment H [Au tomated message] = 3173-2) The system [employer] sense generated this result transmitted ref erence range: 26 - 36 Seconds. The reference range was not used to int erpret this result as normal/abnormal . Lab Interpretation (test Abnormal code = 64847-6) [facility] (for use with Heparin Infusion)2022-05-29 11:36:15 Test Item Value Reference Range Interpretation Comments APTT Patient (test code 52 See_Comment H [Au tomated message] = 3173-2) The system [employer]th sense generated this result transmitted ref erence range: 26 - 36 Seconds. The reference range was not used to int erpret this result as normal/abnormal . Lab Interpretation (test Abnormal code = 56142-5) [facility] METABOLIC PANEL (NA, K, CL, CO2, GLUCOSE, BUN, CREATININE, CA)2022-05-29 11:35:55 Test Item Value Reference Range Interpretation Comments NA (test code = 136 mmol/L 135-145 9638715685) K (test code = 4.9 mmol/L 3.5-5.0 Slight 3759534852) hemolysis CL (test code = 106 mmol/L 98-108 1713776041) CO2 TOTAL (test code 28 mmol/L 23-31 = 5914065525) AGAP (test code = 2 2-16 3451539943) BUN (test code = 26 mg/dL 7-23 H Slight 8257411938) hemolysis GLUCOSE (test code = 88 mg/dL 70-110 6903971328) CREATININE (test code 0.86 mg/dL 0.60-1.25 = 3720115969) CALCIUM (test code = 8.4 mg/dL 8.6-10.6 L 1181047417) eGFR (test code = 91.0 mL/min/1.73m2 1204460289) DEWAYNE (test code = DEWAYNE) Association of [...] tests). Lab Interpretation Abnormal (test code = 77765-6) [facility] Test Item Value Reference Range Interpretation Comments MAGNESIUM (test code = 5494552324) 2.4 mg/dL 1.7-2.4 Lab Interpretation (test code = Normal 51162-1) [facility] METABOLIC PANEL (NA, K, CL, CO2, GLUCOSE, BUN, CREATININE, CA)2022-05-29 11:35:55 Test Item Value Reference Range Interpretation Comments NA (test code = 136 mmol/L 135-145 6509092968) K (test code = 4.9 mmol/L 3.5-5.0 Slight 1781777528) hemolysis CL (test code = 106 mmol/L 98-108 8311778655) CO2 TOTAL (test code 28 mmol/L 23-31 = 8084547667) AGAP (test code = 2 2-16 1803832322) BUN (test code = 26 mg/dL 7-23 H Slight 4830567235) hemolysis GLUCOSE (test code = 88 mg/dL 70-110 6756737979) CREATININE (test code 0.86 mg/dL 0.60-1.25 = 1871399749) CALCIUM (test code = 8.4 mg/dL 8.6-10.6 L 1638597314) eGFR (test code = 91.0 mL/min/1.73m2 6653119364) DEWAYNE (test code = DEWAYNE) Association of [...] tests). Lab Interpretation Abnormal (test code = 85510-8) [facility] 11:35:55 Test Item Value Reference Range Interpretation Comments MAGNESIUM (test code = 6448897805) 2.4 mg/dL 1.7-2.4 Lab Interpretation (test code = Normal 74032-9) [facility] (NA, K, CL, CO2, GLUCOSE, BUN, CREATININE, CA)2022-05-29 11:35:55 Test Item Value Reference Range Interpretation Comments NA (test code = 136 mmol/L 135-145 4061370276) K (test code = 4.9 mmol/L 3.5-5.0 Slight 1171350008) hemolysis CL (test code = 106 mmol/L 98-108 2509377690) CO2 TOTAL (test code 28 mmol/L 23-31 = 6777801425) AGAP (test code = 2 2-16 2693233703) BUN (test code = 26 mg/dL 7-23 H Slight 0364923970) hemolysis GLUCOSE (test code = 88 mg/dL 70-110 3989859474) CREATININE (test code 0.86 mg/dL 0.60-1.25 = 1784446682) CALCIUM (test code = 8.4 mg/dL 8.6-10.6 L 1019729806) eGFR (test code = 91.0 mL/min/1.73m2 2301263701) DEWAYNE (test code = DEWAYNE) Association of [...] tests). Lab Interpretation Abnormal (test code = 15655-5) [facility] 11:35:55 Test Item Value Reference Range Interpretation Comments MAGNESIUM (test code = 8234985584) 2.4 mg/dL 1.7-2.4 Lab Interpretation (test code = Normal 82654-3) [facility] (NA, K, CL, CO2, GLUCOSE, BUN, CREATININE, CA)2022-05-29 11:35:55 Test Item Value Reference Range Interpretation Comments NA (test code = 136 mmol/L 135-145 5683607390) K (test code = 4.9 mmol/L 3.5-5.0 Slight 4286220639) hemolysis CL (test code = 106 mmol/L 98-108 8627964903) CO2 TOTAL (test code 28 mmol/L 23-31 = 2621515837) AGAP (test code = 2 2-16 6561553128) BUN (test code = 26 mg/dL 7-23 H Slight 7104966659) hemolysis GLUCOSE (test code = 88 mg/dL 70-110 9833305975) CREATININE (test code 0.86 mg/dL 0.60-1.25 = 7401581173) CALCIUM (test code = 8.4 mg/dL 8.6-10.6 L 9372615113) eGFR (test code = 91.0 mL/min/1.73m2 3701492775) DEWAYNE (test code = DEWAYNE) Association of [...] tests). Lab Interpretation Abnormal (test code = 97244-9) [facility] 11:35:55 Test Item Value Reference Range Interpretation Comments MAGNESIUM (test code = 5955440568) 2.4 mg/dL 1.7-2.4 Lab Interpretation (test code = Normal 15694-0) [facility] [id number] 11:28:31 Test Item Value Reference Range Interpretation Comments WBC (test code = 6690-2) 7.81 See_Comment [A utomated message] The system mth sense generated this result transmit elizabeth reference range : 4.20 - 10.70 10*3/?L. The reference range was not used to interpret this result as normal/abnormal . RBC (test code = 789-8) 4.04 See_Comment L [Au tomated message] The system mth sense generated this result transmit elizabeth reference range [...] 252 See_Comment [Au tomated message] The system [employer] generated this result transmit elizabeth reference range : 150 - 328 10*3/?L. The reference range was not used to interpret this result as normal/abnormal . MPV (test code = 9.6 fL 9.8-13.0 L 87118-5) RDW-CV (test code = 14.6 % 12.1-15.4 788-0) RDW-SD (test code = 46.5 fL 38.5-51.6 98674-1) NRBC x10^3 (test code = See_Comment [Au tomated message] 9718576280) The system [employer] sense generated this result transmit elizabeth reference range : 10*3/?L. The reference range was not used to interpret this result as normal/abnormal . NRBC/100 WBC (test code 0.0 See_Comment [Au tomated message] = 3690417134) The system [facility] generated this result transmit elizabeth reference range : 0.0 - 10.0 /100 WBC s. The reference r mitra was not used to interpret this result as normal/abnormal . IPF % (test code = 9910090409) Lab Interpretation (test Abnormal code = 33977-5) [facility] Without [id number] 11:28:31 Test Item Value Reference Range Interpretation Comments WBC (test code = 6690-2) 7.81 See_Comment [A utomated message] The system [employer] generated this result transmit elizabeth reference range : 4.20 - 10.70 10*3/?L. The reference range was not used to interpret this result as normal/abnormal . RBC (test code = 789-8) 4.04 See_Comment L [Au tomated message] The system [employer] generated this result transmit elizabeth reference range [...] 252 See_Comment [Au tomated message] The system [employer] generated this result transmit elizabeth reference range : 150 - 328 10*3/?L. The reference range was not used to interpret this result as normal/abnormal . MPV (test code = 9.6 fL 9.8-13.0 L 71529-0) RDW-CV (test code = 14.6 % 12.1-15.4 788-0) RDW-SD (test code = 46.5 fL 38.5-51.6 19839-8) NRBC x10^3 (test code = See_Comment [Au tomated message] 5612883876) The system [employer] generated this result transmit elizabeth reference range : 10*3/?L. The reference range was not used to interpret this result as normal/abnormal . NRBC/100 WBC (test code 0.0 See_Comment [Au tomated message] = 8689475429) The system [facility] generated this result transmit elizabeth reference range : 0.0 - 10.0 /100 WBC s. The reference r mitra was not used to interpret this result as normal/abnormal . IPF % (test code = 6133452554) Lab Interpretation (test Abnormal code = 40890-7) [facility] Without [id number] 11:28:31 Test Item Value Reference Range Interpretation Comments WBC (test code = 6690-2) 7.81 See_Comment [A utomated message] The system [employer] generated this result transmit elizabeth reference range : 4.20 - 10.70 10*3/?L. The reference range was not used to interpret this result as normal/abnormal . RBC (test code = 789-8) 4.04 See_Comment L [Au tomated message] The system [employer] generated this result transmit elizabeth reference range [...] 252 See_Comment [Au tomated message] The system [employer] generated this result transmit elizabeth reference range : 150 - 328 10*3/?L. The reference range was not used to interpret this result as normal/abnormal . MPV (test code = 9.6 fL 9.8-13.0 L 16802-3) RDW-CV (test code = 14.6 % 12.1-15.4 788-0) RDW-SD (test code = 46.5 fL 38.5-51.6 71248-8) NRBC x10^3 (test code = See_Comment [Au tomated message] 6438334517) The system [employer] generated this result transmit elizabeth reference range : 10*3/?L. The reference range was not used to interpret this result as normal/abnormal . NRBC/100 WBC (test code 0.0 See_Comment [Au tomated message] = 8894314427) The system [facility] generated this result transmit elizabeth reference range : 0.0 - 10.0 /100 WBC s. The reference r mitra was not used to interpret this result as normal/abnormal . IPF % (test code = 5943272706) Lab Interpretation (test Abnormal code = 18205-5) [facility] Without [id number] 11:28:31 Test Item Value Reference Range Interpretation Comments WBC (test code = 6690-2) 7.81 See_Comment [A utomated message] The system [employer] generated this result transmit elizabeth reference range : 4.20 - 10.70 10*3/?L. The reference range was not used to interpret this result as normal/abnormal . RBC (test code = 789-8) 4.04 See_Comment L [Au tomated message] The system [facility] generated this result transmit [...] 252 See_Comment [Au tomated message] The system [employer] generated this result transmit elizabeth reference range : 150 - 328 10*3/?L. The reference range was not used to interpret this result as normal/abnormal . MPV (test code = 9.6 fL 9.8-13.0 L 84168-2) RDW-CV (test code = 14.6 % 12.1-15.4 788-0) RDW-SD (test code = 46.5 fL 38.5-51.6 39829-7) NRBC x10^3 (test code = See_Comment [Au tomated message] 9221517491) The system [employer] generated this result transmit elizabeth reference range : 10*3/?L. The reference range was not used to interpret this result as normal/abnormal . NRBC/100 WBC (test code 0.0 See_Comment [Au tomated message] = [id number]) The system [facility] [employer] generated this result transmit elizabeth reference range : 0.0 - 10.0 /100 WBC s. The reference r mitra was not used to interpret this result as normal/abnormal . 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 Mutation Tested: F2 c.03684J>A (D58874T). Clinical Sensitivity for Venous Thrombosis: Approximately 10%. Methodology: Polymerase chain reaction and fluorescence monitoring Limitations: The performance of this assay has not been evaluated with samples from pediatric patients. Counseling and informed consent are recommended for genetic testing. References: OMIM: 598520 https://ghr.nlm.nih.gov/c ondition/prothrombin-thro mbophilia [facility] [id number] 18:45:15 Test Item Value Reference Range Interpretation Comments FACTOR 5 LEIDEN Heterozygous Normal (test code = 5968446082) DEWAYNE (test code = Phenotype Characteristics: DEWAYNE) [...] the Factor 5 Leiden mutation is c.1601G>A (p.Jqf547Hrx). Methodology: Polymerase chain reaction and fluorescence monitoring. Limitations: Rare Factor V mutations (O8808I, K8993U, and D7805A) and any additional SNPs in the probe binding region may interfere with the target detection and yield an INVALID result. The performance of this assay has not been evaluated with samples from pediatric patients. Counseling and informed consent are recommended for genetic testing. References: OMIM: 788309 https://ghr.nlm.nih.gov/co ndition/uciynr-c-kehkmr- rombophilia [facility] F58895S [id number] 18:45:15 Test Item Value Reference Range Interpretation Comments Factor 2 H04667B Heterozygous Normal Mutation (test code = 2942164931) DEWAYNE (test code = Phenotype DEWAYNE) Characteristics: [...] further increased for homozygotes. Mutation Tested: F2 c.99546I>A (J21339P). Clinical Sensitivity for Venous Thrombosis: Approximately 10%. Methodology: Polymerase chain reaction and fluorescence monitoring Limitations: The performance of this assay has not been evaluated with samples from pediatric patients. Counseling and informed consent are recommended for genetic testing. References: OMIM: 023212 https://ghr.nlm.nih.gov/c ondition/prothrombin-thro mbophilia [facility] [id number] 18:45:15 Test Item Value Reference Range Interpretation Comments FACTOR 5 LEIDEN Heterozygous Normal (test code = 0548309253) DEWAYNE (test code = Phenotype Characteristics: DEWAYNE) [...] the Factor 5 Leiden mutation is c.1601G>A (p.Yyz963Rks). Methodology: Polymerase chain reaction and fluorescence monitoring. Limitations: Rare Factor V mutations (T7489W, T9034U, and L8259I) and any additional SNPs in the probe binding region may interfere with the target detection and yield an INVALID result. The performance of this assay has not been evaluated with samples from pediatric patients. Counseling and informed consent are recommended for genetic testing. References: OMIM: 507595 https://ghr.nlm.nih.gov/co ndition/jnpggr-n-fldykv-th rombophilia [facility] P61761I [id number] 18:45:15 Test Item Value Reference Range Interpretation Comments Factor 2 Q13712Y Heterozygous Normal Mutation (test code = 5754450850) DEWAYNE (test code = Phenotype DEWAYNE) Characteristics: [...] further increased for homozygotes. Mutation Tested: F2 c.69000N>A (L73492B). Clinical Sensitivity for Venous Thrombosis: Approximately 10%. Methodology: Polymerase chain reaction and fluorescence monitoring Limitations: The performance of this assay has not been evaluated with samples from pediatric patients. Counseling and informed consent are recommended for genetic testing. References: OMIM: 989224 https://ghr.nlm.nih.gov/c ondition/prothrombin-thro mbophilia [facility] [id number] 18:45:15 Test Item Value Reference Range Interpretation Comments FACTOR 5 LEIDEN Heterozygous Normal (test code = 6787563331) DEWAYNE (test code = Phenotype Characteristics: DEWAYNE) [...] the Factor 5 Leiden mutation is c.1601G>A (p.Aeu686Lhp). Methodology: Polymerase chain reaction and fluorescence monitoring. Limitations: Rare Factor V mutations (O9098X, O8110T, and R1813I) and any additional SNPs in the probe binding region may interfere with the target detection and yield an INVALID result. The performance of this assay has not been evaluated with samples from pediatric patients. Counseling and informed consent are recommended for genetic testing. References: OMIM: 841322 https://ghr.nlm.nih.gov/co ndition/iydqcb-h-gvofsc-th rombophilia [facility] W49189Y [id number] 18:45:15 Test Item Value Reference Range Interpretation Comments Factor 2 S25334P Heterozygous Normal Mutation (test code = 0662587099) DEWAYNE (test code = Phenotype DEWAYNE) Characteristics: [...] further increased for homozygotes. Mutation Tested: F2 c.54659O>A (S82360H). Clinical Sensitivity for Venous Thrombosis: Approximately 10%. Methodology: Polymerase chain reaction and fluorescence monitoring Limitations: The performance of this assay has not been evaluated with samples from pediatric patients. Counseling and informed consent are recommended for genetic testing. References: OMIM: 824075 https://ghr.nlm.nih.gov/c ondition/prothrombin-thro mbophilia [facility] [id number] 18:45:15 Test Item Value Reference Range Interpretation Comments FACTOR 5 LEIDEN Heterozygous Normal (test code = 7265014741) DEWAYNE (test code = Phenotype Characteristics: DEWAYNE) [...] the Factor 5 Leiden mutation is c.1601G>A (p.Wmm607Les). Methodology: Polymerase chain reaction and fluorescence monitoring. Limitations: Rare Factor V mutations (E6924O, D1657P, and Q1846E) and any additional SNPs in the probe binding region may interfere with the target detection and yield an INVALID result. The performance of this assay has not been evaluated with samples from pediatric patients. Counseling and informed consent are recommended for genetic testing. References: OMIM: 123745 https://ghr.nlm.nih.gov/co ndition/wfpuug-b-cwszss-[facility] METABOLIC PANEL (NA, K, CL, CO2, GLUCOSE, BUN, CREATININE, CA)2022-05-28 09:52:42 Test Item Value Reference Range Interpretation Comments NA (test code = 137 mmol/L 135-145 8391613535) K (test code = 3.8 mmol/L 3.5-5.0 1473323401) CL (test code = 103 mmol/L 98-108 4503595571) CO2 TOTAL (test code = 27 mmol/L 23-31 1102278103) AGAP (test code = 7 2-16 1096873985) BUN (test code = 27 mg/dL 7-23 H 7314472426) GLUCOSE (test code = 105 mg/dL 70-110 8256824861) CREATININE (test code = 0.84 mg/dL 0.60-1.25 6388901289) CALCIUM (test code = 8.5 mg/dL 8.6-10.6 L 8341157357) eGFR (test code = 93.5 mL/min/1.73m2 7542782379) DEWAYNE (test code = DEWAYNE) Association of [...] tests). Lab Interpretation Abnormal (test code = 68896-1) [facility] METABOLIC PANEL (NA, K, CL, CO2, GLUCOSE, BUN, CREATININE, CA)2022-05-28 09:52:42 Test Item Value Reference Range Interpretation Comments NA (test code = 137 mmol/L 135-145 5196978606) K (test code = 3.8 mmol/L 3.5-5.0 8046260514) CL (test code = 103 mmol/L 98-108 4692386791) CO2 TOTAL (test code = 27 mmol/L 23-31 0138869633) AGAP (test code = 7 2-16 5791011688) BUN (test code = 27 mg/dL 7-23 H 3281119780) GLUCOSE (test code = 105 mg/dL 70-110 9266199175) CREATININE (test code = 0.84 mg/dL 0.60-1.25 1561227436) CALCIUM (test code = 8.5 mg/dL 8.6-10.6 L 0489881861) eGFR (test code = 93.5 mL/min/1.73m2 4687543272) DEWAYNE (test code = DEWAYNE) Association of [...] tests). Lab Interpretation Abnormal (test code = 61281-3) [facility] METABOLIC PANEL (NA, K, CL, CO2, GLUCOSE, BUN, CREATININE, CA)2022-05-28 09:52:42 Test Item Value Reference Range Interpretation Comments NA (test code = 137 mmol/L 135-145 7735715660) K (test code = 3.8 mmol/L 3.5-5.0 4460696552) CL (test code = 103 mmol/L 98-108 6265725160) CO2 TOTAL (test code = 27 mmol/L 23-31 8666716261) AGAP (test code = 7 2-16 2034352666) BUN (test code = 27 mg/dL 7-23 H 4950422083) GLUCOSE (test code = 105 mg/dL 70-110 3454683902) CREATININE (test code = 0.84 mg/dL 0.60-1.25 5916540405) CALCIUM (test code = 8.5 mg/dL 8.6-10.6 L 9626026092) eGFR (test code = 93.5 mL/min/1.73m2 0048493561) DEWAYNE (test code = DEWAYNE) Association of [...] tests). Lab Interpretation Abnormal (test code = 48174-8) [facility] (NA, K, CL, CO2, GLUCOSE, BUN, CREATININE, CA)2022-05-28 09:52:42 Test Item Value Reference Range Interpretation Comments NA (test code = 137 mmol/L 135-145 7618276790) K (test code = 3.8 mmol/L 3.5-5.0 8075191007) CL (test code = 103 mmol/L 98-108 9763582407) CO2 TOTAL (test code = 27 mmol/L 23-31 1634350978) AGAP (test code = 7 2-16 0602252877) BUN (test code = 27 mg/dL 7-23 H 4882880619) GLUCOSE (test code = 105 mg/dL 70-110 8782380430) CREATININE (test code = 0.84 mg/dL 0.60-1.25 4350621091) CALCIUM (test code = 8.5 mg/dL 8.6-10.6 L 4862969700) eGFR (test code = 93.5 mL/min/1.73m2 1603566331) DEWAYNE (test code = DEWAYNE) Association of [...] tests). Lab Interpretation Abnormal (test code = 83607-5) [facility] WITH [id number] 09:29:20 Test Item Value Reference Range Interpretation Comments WBC (test code = 8.34 See_Comment [Lprbrsafi 2378-2) message] The sy stem which generated this [...] RDW-SD (test code = 44.7 fL 38.5-51.6 16443-1) RDW-CV (test code = 14.5 % 12.1-15.4 788-0) PLT (test code = 199 See_Comment [Automated 777-3) message] The sy stem which generated this result transmitted reference range : 150 - 328 10*3/ ?L. The reference r mitra was not used to interpret this result as normal/abnormal . MPV (test code = 9.3 fL 9.8-13.0 L 59868-2) NRBC/100 WBC (test 0.0 See_Comment [Automat ed code = 9263175441) message] The system which generated this result transmitted reference range : 0.0 - 10.0 /100 WBCs. The refer ence range was not u sed to interpret th is result as normal/abnormal . NRBC x10^3 (test code See_Comment [Auto mated = 2543821116) message] The s ystem which generated this result transmitted reference range : 10*3/?L. The reference range was not used to interpret this result as normal/abnormal . GRAN MAT (NEUT) % 56.1 % (test code = 770-8) IMM GRAN % (test code 1.20 % = 8985751209) LYMPH % (test code = 30.8 % 736-9) MONO % (test code = 7.6 % 5905-5) EOS % (test code = 3.7 % 713-8) BASO % (test code = 0.6 % 706-2) GRAN MAT x10^3(ANC) 4.68 10*3/uL 1.99-6.95 (test code = 9959882746) IMM GRAN x10^3 (test 0.10 10*3/uL 0.00-0.06 H code = 9802642015) LYMPH x10^3 (test code 2.57 10*3/uL 1.09-3.23 = 731-0) MONO x10^3 (test code 0.63 10*3/uL 0.36-1.02 = 742-7) EOS x10^3 (test code = 0.31 10*3/uL 0.06-0.53 711-2) BASO x10^3 (test code 0.05 10*3/uL 0.01-0.09 = 704-7) Lab Interpretation Abnormal (test code = 12129-9) [facility] WITH [id number] 09:29:20 Test Item Value Reference Range Interpretation Comments WBC (test code = 8.34 See_Comment [Automated 6690-2) message] The sy stem which generated this result transmitted reference range : 4.20 - 10.70 10*3/?L. The reference range was not used to interpret this result as normal/abnormal . RBC (test code = 4.08 See_Comment L [Automated 309-8) message] The sy stem which generated this [...] RDW-SD (test code = 44.7 fL 38.5-51.6 24115-4) RDW-CV (test code = 14.5 % 12.1-15.4 788-0) PLT (test code = 199 See_Comment [Automated 777-3) message] The sy stem which generated this result transmitted reference range : 150 - 328 10*3/ ?L. The reference r mitra was not used to interpret this result as normal/abnormal . MPV (test code = 9.3 fL 9.8-13.0 L 55571-3) NRBC/100 WBC (test 0.0 See_Comment [Automat ed code = 7862884922) message] The system which generated this result transmitted reference range : 0.0 - 10.0 /100 WBCs. The refer ence range was not u sed to interpret th is result as normal/abnormal . NRBC x10^3 (test code See_Comment [Auto mated = 0573702266) message] The s ystem which generated this result transmitted reference range : 10*3/?L. The reference range was not used to interpret this result as normal/abnormal . GRAN MAT (NEUT) % 56.1 % (test code = 770-8) IMM GRAN % (test code 1.20 % = 4098935344) LYMPH % (test code = 30.8 % 736-9) MONO % (test code = 7.6 % 5905-5) EOS % (test code = 3.7 % 713-8) BASO % (test code = 0.6 % 706-2) GRAN MAT x10^3(ANC) 4.68 10*3/uL 1.99-6.95 (test code = 7346011536) IMM GRAN x10^3 (test 0.10 10*3/uL 0.00-0.06 H code = 4404228676) LYMPH x10^3 (test code 2.57 10*3/uL 1.09-3.23 = 731-0) MONO x10^3 (test code 0.63 10*3/uL 0.36-1.02 = 742-7) EOS x10^3 (test code = 0.31 10*3/uL 0.06-0.53 711-2) BASO x10^3 (test code 0.05 10*3/uL 0.01-0.09 = 704-7) Lab Interpretation Abnormal (test code = 16977-7) [facility] WITH [id number] 09:29:20 Test Item Value Reference Range Interpretation [...] RDW-SD (test code = 44.7 fL 38.5-51.6 31351-1) RDW-CV (test code = 14.5 % 12.1-15.4 788-0) PLT (test code = 199 See_Comment [Automated 777-3) message] The sy stem which generated this result transmitted reference range : 150 - 328 10*3/ ?L. The reference r mitra was not used to interpret this result as normal/abnormal . MPV (test code = 9.3 fL 9.8-13.0 L 76932-4) NRBC/100 WBC (test 0.0 See_Comment [Automat ed code = 3214388215) message] The system which generated this result transmitted reference range : 0.0 - 10.0 /100 WBCs. The refer ence range was not u sed to interpret th is result as normal/abnormal . NRBC x10^3 (test code See_Comment [Auto mated = 4710459561) message] The s ystem which generated this result transmitted reference range : 10*3/?L. The reference range was not used to interpret this result as normal/abnormal . GRAN MAT (NEUT) % 56.1 % (test code = 770-8) IMM GRAN % (test code 1.20 % = 5219633660) LYMPH % (test code = 30.8 % 736-9) MONO % (test code = 7.6 % 5905-5) EOS % (test code = 3.7 % 713-8) BASO % (test code = 0.6 % 706-2) GRAN MAT x10^3(ANC) 4.68 10*3/uL 1.99-6.95 (test code = 8542524045) IMM GRAN x10^3 (test 0.10 10*3/uL 0.00-0.06 H code = 4832371500) LYMPH x10^3 (test code 2.57 10*3/uL 1.09-3.23 = 731-0) MONO x10^3 (test code 0.63 10*3/uL 0.36-1.02 = 742-7) EOS x10^3 (test code = 0.31 10*3/uL 0.06-0.53 711-2) BASO x10^3 (test code 0.05 10*3/uL 0.01-0.09 = 704-7) Lab Interpretation Abnormal (test code = 29403-9) [facility] WITH [id number] 09:29:20 Test Item Value Reference Range Interpretation Comments WBC (test code = 8.34 See_Comment [Automated 6990-2) message] The sy stem which generated this result transmitted reference range : 4.20 - 10.70 10*3/?L. The reference range was not used to interpret this result as normal/abnormal . RBC (test code = 4.08 See_Comment L [Automated 589-8) message] The sy stem which generated this [...] RDW-SD (test code = 44.7 fL 38.5-51.6 56632-4) RDW-CV (test code = 14.5 % 12.1-15.4 788-0) PLT (test code = 199 See_Comment [Automated 777-3) message] The sy stem which generated this result transmitted reference range : 150 - 328 10*3/ ?L. The reference r mitra was not used to interpret this result as normal/abnormal . MPV (test code = 9.3 fL 9.8-13.0 L 79775-0) NRBC/100 WBC (test 0.0 See_Comment [Automat ed code = 4207436151) message] The system which generated this result transmitted reference range : 0.0 - 10.0 /100 WBCs. The refer ence range was not u sed to interpret th is result as normal/abnormal . NRBC x10^3 (test code See_Comment [Auto mated = 4301845182) message] The s ystem which generated this result transmitted reference range : 10*3/?L. The reference range was not used to interpret this result as normal/abnormal . GRAN MAT (NEUT) % 56.1 % (test code = 770-8) IMM GRAN % (test code 1.20 % = 7817051960) LYMPH % (test code = 30.8 % 736-9) MONO % (test code = 7.6 % 5905-5) EOS % (test code = 3.7 % 713-8) BASO % (test code = 0.6 % 706-2) GRAN MAT x10^3(ANC) 4.68 10*3/uL 1.99-6.95 (test code = 4562881904) IMM GRAN x10^3 (test 0.10 10*3/uL 0.00-0.06 H code = 2710696476) LYMPH x10^3 (test code 2.57 10*3/uL 1.09-3.23 = 731-0) MONO x10^3 (test code 0.63 10*3/uL 0.36-1.02 = 742-7) EOS x10^3 (test code = 0.31 10*3/uL 0.06-0.53 711-2) BASO x10^3 (test code 0.05 10*3/uL 0.01-0.09 = 704-7) Lab Interpretation Abnormal (test code = 09219-6) [facility] [id number] 04:20:00 Test Item Value Reference Interpretation Comments Range Levetiracetam 4.1 ug/mL 10.0-40.0 A This test was developed and ([facility]) S (test its perfor fritz code = KEPPRA.L) characteris ticsdetermined by [facility]. It has not been cleared orappro mannie by the Food and Drug Administration. Performed at: [facility] [address] [place], [place] [address] Di shahid: Miriam Sevilla MD, Ph one: [phone] Drug Screen,[id number] 20:40:00 Test Item Value Reference Range Interpretation [...] Negative Negative code = UPROP) Comprehensive Metabolic Ksvmf5091-01-89 19:50:00 Test Item Value Reference Range Interpretation [...] 47 U/L 46-116 N = ALP) Troponin [id number] 19:50:00 Test Item Value Reference Range Interpretation [...] 99th percentile in serialmeasureme nts. Prothrombin Time [id number] 19:50:00 Test Item Value Reference Range Interpretation Comments Prothrombin Time (test code = 10.9 Seconds 9.8-13.4 N PT) INR (test code = INR) 1.0 ratio 0.6-1.2 N Partial Thromboplastin Ijbp6255-68-09 19:50:00 Test Item Value Reference Range Interpretation Comments Partial Thromboplastin Time 20.00 Seconds 24.39-37.25 L (test code = PTT) Complete Blood Count Auto [id number] 19:50:00 Test Item Value Reference Range Interpretation [...] code = NRBCP) 0 % B-Type Natriuretic Giajgtq8701-25-63 19:50:00 Test Item Value Reference Range Interpretation Comments B-Type Natriuretic Peptide (test 30.2 pg/mL 0.0-99.9 N code = BNP) SARS-CoV-2 (COVID-19) RNA [Presence] in Respiratory specimen by COOPER with probe dhdmbejym7573-48-19 03:31:41 Test Item Value Reference Range Interpretation Comments SARS-CoV-2 (COVID-19) RNA Not detected Not-Detected [Presence] in Respiratory specimen by COOPER with probe detection (test code = 93952-3) [facility] Albwi6873-82-92 20:19:00 Test Item Value Reference Range Interpretation [...] ://nkd ep.nih.gov CT HEAD OR BRAIN WO VKKTTDZA2489-57-43 18:19:40Location code: R 15HISTORY: Intracranial hemorrhageCOMPARISON: None.TECHNIQUE: [...] Unremarkable nonenhanced CT scan of the brain.Ammonia, [id number] 12:35:00 Test Item Value Reference Range Interpretation Comments Ammonia (test code = NH3) 25.0 umol/L 11.0-35.0 N US DUPLX EXT VEINS COMPRS, [id number] 15:35:40ULTRASOUND: Bilateral lower extremity venous duplex sonography.History: Evaluate for deep venous thro mbosis.Site: 16COMPARISON: NoneFINDINGS/TECHNIQUE:Grayscale, color Doppler and spectral images [...] An IVC filter is in place.Impression:Unremarkable exam.Glycosylated Xiulcettgo0364-06-16 10:36:00 Test Item Value Reference Range Interpretation Comments HBA1c (test code = HBA1C) 5.1 % 4.8-5.9 N RPR, [id number] 12:10:00 Test Item Value Reference Range Interpretation Comments RPR (test code = RPR) Non-Reactive Non-Reactive N Thyroid Stimulating Hormone (TSH)2016-12-24 06:02:00 Test Item Value Reference Range Interpretation Comments TSH (test code = TSH) 1.03 mIU/mL 0.270-4.200 N Lipid Rylkhyq4032-50-90 05:53:00 Test Item Value Reference Range Interpretation Comments Cholesterol (test 205 mg/dL 0-200 H code = CHOL) Triglycerides (test 69 mg/dL 9-200 N code = TRIG) HDL (test code = 68 mg/dL 40-60 H HDL) Chol/HDL (test code 3.0 Ratio 0.0-5.0 N = CHOLPHDL) LDL, Calculated 123 0-130 N (NOTE)RISK O F HEART (test code = LDLC) DISEASEPu blished by [place] Heart AssociationAnal yte Optimal Boderli ne Increased RiskC HOL <200 200-239 >240TRI G <150 150-199 >200HDL Male: >60 <40HDL Fem saleem: >60 <50LDL <100 130 -159 >160LDL NEAR OP TIMAL IS 100-129 VLDL (test code = 14 mg/dL 5-40 N VLDL) LDL/HDL (test code = 2 LDLPHDL) Comprehensive Metabolic Yapgm4751-64-31 18:42:00 Test Item Value Reference Range Interpretation [...] National [employer] Foundation,http :[email or web address] ep.nih.gov CBC with Kdozrokstgbb6205-08-61 17:59:00 Test Item Value Reference Range Interpretation [...] code = ALYMPH) 1.4 K/cumm 0.5-4.6 N [place] Abs (test code = AMONO) 0.9 K/cumm 0.0-1.2 N Eos Abs (test code = AEOS) 0.01 K/cumm 0.00-0.74 N Baso Abs (test code = ABASO) 0.0 K/cumm 0.00-0.21 N CHEM [id number] 18:46:00 Test Item Value Reference Range Interpretation Comments Magnesium Lvl (test code = Magnesium 1.8 1.8-2.4 Lvl) [facility]RsijclgVSTWSTBVYZZC2144-25-08 18:46:00 Test Item Value Reference Range Interpretation Comments AGAP (test code = AGAP) 13.2 10.0-20.0 [facility] HospitalFaqrklvCRJUYFGFROUA3607-93-12 18:46:00 Test Item Value Reference Range Interpretation Comments B/C Ratio (test code = B/C Ratio) 18 6-25 [facility] HospitalWhahbfiILFQPIPUIQSG2187-61-05 18:46:00 Test Item Value Reference Range Interpretation Comments A/G Ratio (test code = A/G Ratio) 1.1 0.7-1.6 [facility] HospitalVdospcqJTNWMUBYMUIX8779-86-07 18:46:00 Test Item Value Reference Range Interpretation Comments Globulin (test code = Globulin) 3.3 2.0-4.0 [facility] HospitalQkxqcgkNVHJGCQCKUVV2120-37-69 18:46:00 Test Item Value Reference Range Interpretation Comments eGFR (test code = eGFR) 99 [facility] HospitalOscsmcoPAVQGDAHHMVB1954-97-40 18:46:00 Test Item Value Reference Range Interpretation Comments Calcium Lvl (test code = Calcium Lvl) 9.0 8.5-10.5 [facility] HospitalMaqaixcBCFXGQWFMHLI4937-82-58 18:46:00 Test Item Value Reference Range Interpretation Comments Chloride Lvl (test code = Chloride Lvl) 106 95-109 [facility] HospitalVawnubnMBUNXISQAGVG1615-44-26 18:46:00 Test Item Value Reference Range Interpretation Comments Creatinine Lvl (test code = Creatinine 0.9 0.5-1.4 Lvl) [facility] HospitalMtxgwawHYFXWFVGTVBS3948-94-29 18:46:00 Test Item Value Reference Range Interpretation Comments Potassium Lvl (test code = Potassium 4.2 3.5-5.1 Lvl) [facility] HospitalYggjwzyQTCRUHNECMFF8550-61-97 18:46:00 Test Item Value Reference Range Interpretation Comments Sodium Lvl (test code = Sodium Lvl) 139 135-145 [facility] HospitalSqbkbouKBHSVMNFQZMP7754-33-54 18:46:00 Test Item Value Reference Range Interpretation Comments CO2 (test code = CO2) 24 24-32 [facility] HospitalOstvdihUBXCSJPRNASO8808-51-49 18:46:00 Test Item Value Reference Range Interpretation Comments BUN (test code = BUN) 16 7-22 [facility] HospitalZeranwgZZVKHAVKLUNS9703-65-01 18:46:00 Test Item Value Reference Range Interpretation Comments Glucose Lvl (test code = Glucose Lvl) 141 70-99 [facility] HospitalLyxfzndJWIGLVZFVJMD3605-35-22 18:46:00 Test Item Value Reference Range Interpretation Comments Albumin Lvl (test code = Albumin Lvl) 3.6 3.5-5.0 [facility] HospitalXqxfqxmUEHCEYVZJGCW6568-56-80 18:46:00 Test Item Value Reference Range Interpretation Comments Alk Phos (test code = Alk Phos) 65 39-136 [facility] HospitalMbqtmckVSOBRMLOEFEC0566-58-98 18:46:00 Test Item Value Reference Range Interpretation Comments Bili Total (test code = Bili Total) 0.3 0.2-1.3 [facility] HospitalNgambpyXSRIDCSJSHPU4040-21-28 18:46:00 Test Item Value Reference Range Interpretation Comments ALT (test code = ALT) 100 See_Comment [Auto mated message] The system which ge nerated this result transmit elizabeth reference range : <=65. The reference range was not used to interpr et this result as margaret l/abnormal. [facility] [facility]EoyndexOGXTYDAGNKEG4145-07-89 18:46:00 Test Item Value Reference Range Interpretation Comments AST (test code = AST) 53 See_Comment [Auto mated message] The system which ge nerated this result transmit elizabeth reference range : <=37. The reference range was not used to interpr et this result as margaret l/abnormal. [facility] HospitalRmcjegjGDOTPEGNGIXV9390-72-72 18:46:00 Test Item Value Reference Range Interpretation Comments Total Protein (test code = Total 6.9 6.4-8.4 Protein) [facility]lineDhghnghACCIDSMNOL3885-96-73 18:46:00 Test Item Value Reference Range Interpretation Comments Eosinophils (test code = 4.2 See_Comment [A utomated message] The Eosinophils) system which ge nerated this result tra nsmitted reference range : <=4.0. The reference r mitra was not used to int erpret this result as normal/abnormal . [facility]lineLenfrdwMIFCLPDJFX6647-57-13 18:46:00 Test Item Value Reference Range Interpretation Comments Segs (test code = Segs) 56.4 45.0-75.0 [facility]lineFwysbhgVBSCCGPVSH9052-82-31 18:46:00 Test Item Value Reference Range Interpretation Comments Monocytes (test code = Monocytes) 10.3 2.0-12.0 [facility]lineFnmfiqnYCQERENHKM2184-64-71 18:46:00 Test Item Value Reference Range Interpretation Comments Lymphocytes (test code = Lymphocytes) 28.0 20.0-40.0 [facility]lineOcjpaowVQEEIUOQPI3534-46-55 18:46:00 Test Item Value Reference Range Interpretation Comments Monocytes # (test code 0.5 See_Comment [Aut omated message] The = Monocytes #) system which generated this result tra nsmitted reference range : <=0.8. The reference r mitra was not used to int erpret this result as normal/abnormal . [facility] ShorelineVfgusjtCDYMHYHRDO8925-21-80 18:46:00 Test Item Value Reference Range Interpretation Comments Basophils (test code = 1.1 See_Comment [Aut omated message] The Basophils) system which ge nerated this result tra nsmitted reference range : <=1.0. The reference r mitra was not used to int erpret this result as normal/abnormal . [facility]lineScejibaFJWVSLSFGY8274-46-71 18:46:00 Test Item Value Reference Range Interpretation Comments Lymphocytes # (test code = Lymphocytes 1.5 1.0-5.5 #) [facility]lineOobljydUEVSEJGQXR6853-71-94 18:46:00 Test Item Value Reference Range Interpretation Comments Segs-Bands # (test code = Segs-Bands #) 2.9 1.5-8.1 [facility]lineVnjsrwsTKTSDYRHKH6697-81-51 18:46:00 Test Item Value Reference Range Interpretation Comments Eosinophils # (test code 0.2 See_Comment [A utomated message] The = Eosinophils #) system whic h generated this result tra nsmitted reference range : <=0.5. The reference r mitra was not used to int erpret this result as normal/abnormal . [facility]lineFxcdzguUMNZMVGMCZ7846-44-02 18:46:00 Test Item Value Reference Range Interpretation Comments Basophils # (test code 0.1 See_Comment [Aut omated message] The = Basophils #) system which generated this result tra nsmitted reference range : <=0.2. The reference r mitra was not used to int erpret this result as normal/abnormal . [facility] ShorelineZqugtbvGMRNOACEID3008-16-78 18:46:00 Test Item Value Reference Range Interpretation Comments PT (test code = PT) 11.2 s 12.0-14.7 [facility]lineKgyztfwMUAQNAGYUC1935-97-20 18:46:00 Test Item Value Reference Range Interpretation Comments INR (test code = INR) 0.82 0.85-1.17 [facility] ShorelineOzajijbRYIHHRKAPJ0191-57-81 18:46:00 Test Item Value Reference Range Interpretation Comments PTT (test code = PTT) 28.6 s 22.9-35.8 [facility]lineAwuezbhMWGCHVTUHE9929-47-53 18:46:00 Test Item Value Reference Range Interpretation Comments MPV (test code = MPV) 8.1 7.4-10.4 [facility]lineJzhhvvfPUVGEMFJEA2217-05-90 18:46:00 Test Item Value Reference Range Interpretation Comments Platelet (test code = Platelet) 301 133-450 [facility] ShorelineAkobheiZDUHHZUADK2599-34-41 18:46:00 Test Item Value Reference Range Interpretation Comments RDW (test code = RDW) 14.5 11.5-14.5 [facility] ShorelineZhdmsohCXROXJYJEQ7003-87-94 18:46:00 Test Item Value Reference Range Interpretation Comments RBC (test code = RBC) 4.84 4.70-6.10 [facility] CenterMegywtqLIIKFZEOZZ7504-70-97 18:46:00 Test Item Value Reference Range Interpretation Comments Hgb (test code = Hgb) 14.4 14.0-18.0 [facility]XSXQQRCVIY2810[facility] 18:46:00 Test Item Value Reference Range Interpretation Comments WBC (test code = WBC) 5.2 3.7-10.4 [facility] HospitalJelycwdHRHVWKLRWG2642-15-73 18:46:00 Test Item Value Reference Range Interpretation Comments MCH (test code = MCH) 29.8 pg 27.0-31.0 [facility]lineNgfylmaEBWDGMHFYF2958-35-11 18:46:00 Test Item Value Reference Range Interpretation Comments MCV (test code = MCV) 92.0 80.0-94.0 [facility]lineMfkvsccSGPJHZEDNB1350-50-19 18:46:00 Test Item Value Reference Range Interpretation Comments Hct (test code = Hct) 44.5 42.0-54.0 [facility] HospitalAcquktxVYGBBAFWNM7001-66-46 18:46:00 Test Item Value Reference Range Interpretation Comments MCHC (test code = MCHC) 32.4 32.0-36.0 [facility] CenterBdafgycJAKOMUHPCP1919-71-32 18:46:00 Test Item Value Reference Range Interpretation Comments Kan[place]-Hep C Ab (test Negative *NA*(07/22/14 code = Kan[place]-Hep C 1:46 PM) Ab) [facility] AND [id number] 18:46:00 Test Item Value Reference Range Interpretation Comments UA Urobilinogen (test code = UA <=1.0 mg/dL 0.1-1.0 Urobilinogen) [facility] AND [id number] 18:46:00 Test Item Value Reference Range Interpretation Comments UA Sq Epi (test code = UA Sq Epi) None Seen [facility] AND [id number] 18:46:00 Test Item Value Reference Range Interpretation Comments UA Leuk Est (test Negative (07/22/14 1:46 code = UA Leuk Est) PM) [facility] AND [id number] 18:46:00 Test Item Value Reference Range Interpretation Comments UA Nitrite (test code Negative (07/22/14 1:46 = UA Nitrite) PM) [facility] AND [id number] 18:46:00 Test Item Value Reference Range Interpretation Comments UA Blood (test code = Negative (07/22/14 1:46 UA Blood) PM) [facility] AND [id number] 18:46:00 Test Item Value Reference Range Interpretation Comments UA Ketones (test code = UA Negative mg/dL Ketones) [facility] AND [id number] 18:46:00 Test Item Value Reference Range Interpretation Comments UA Bili (test code = Negative *NA*(07/22/14 UA Bili) 1:46 PM) [facility] AND [id number] 18:46:00 Test Item Value Reference Range Interpretation Comments UA Bacteria (test code = UA Occasional /HPF Bacteria) [facility] AND [id number] 18:46:00 Test Item Value Reference Range Interpretation Comments UA RBC (test code = no gt See_Comment [Automa elizabeth message] The UA RBC) system which ge nerated this result transmit elizabeth reference range : <=2. The reference range was not used to interpr et this result as margaret l/abnormal. [facility] AND [id number] 18:46:00 Test Item Value Reference Range Interpretation Comments UA WBC (test code = 1 See_Comment [Automa elizabeth message] The UA WBC) system which ge nerated this result transmit elizabeth reference range : <=5. The reference range was not used to interpr et this result as margaret l/abnormal. [facility] AND [id number] 18:46:00 Test Item Value Reference Range Interpretation Comments UA Glucose (test code = UA Glucose) 30 mg/dL [facility] AND [id number] 18:46:00 Test Item Value Reference Range Interpretation Comments UA Protein (test code = UA Negative mg/dL Protein) [facility] AND [id number] 18:46:00 Test Item Value Reference Range Interpretation Comments UA pH (test code = UA pH) 6.5 5.0-8.[address] [facility] AND [id number] 18:46:00 Test Item Value Reference Range Interpretation Comments UA Turbidity (test code = Clear (07/22/14 1:46 UA Turbidity) PM) [facility] [id number] 18:46:00 Test Item Value Reference Range Interpretation Comments UA Spec Grav (test code = UA Spec Grav) 1.[address] [facility] AND [id number] 18:46:00 Test Item Value Reference Range Interpretation Comments UA Color (test code = Light Yellow UA Color) *NA*(07/22/14 1:46 PM) [facility] [id number] 18:46:00 Test Item Value Reference Range Interpretation Comments Magnesium Lvl (test code = Magnesium 1.8 1.8-2.4 Lvl) [facility] HospitalJpupwvnRRTESAHMWWFF2614-08-44 18:46:00 Test Item Value Reference Range Interpretation Comments AGAP (test code = AGAP) 13.2 10.0-20.0 [facility] HospitalKbclvrvFONDAQSJHRQH6743-37-07 18:46:00 Test Item Value Reference Range Interpretation Comments B/C Ratio (test code = B/C Ratio) 18 6-25 [facility] HospitalCfgdujxHFYWNWSKZIAT4437-51-60 18:46:00 Test Item Value Reference Range Interpretation Comments A/G Ratio (test code = A/G Ratio) 1.1 0.7-1.6 [facility] HospitalGxqgiwxWFBXTQJABGWQ8498-66-26 18:46:00 Test Item Value Reference Range Interpretation Comments Globulin (test code = Globulin) 3.3 2.0-4.0 [facility] HospitalZslnzsmYYOVNBSAYEYA9428-45-76 18:46:00 Test Item Value Reference Range Interpretation Comments eGFR (test code = eGFR) 99 [facility] HospitalSpkvlfoBCBBGNFTYMFR9299-28-75 18:46:00 Test Item Value Reference Range Interpretation Comments Calcium Lvl (test code = Calcium Lvl) 9.0 8.5-10.5 [facility] HospitalKmptlvhOQUIVHDWHOXP8174-34-94 18:46:00 Test Item Value Reference Range Interpretation Comments Chloride Lvl (test code = Chloride Lvl) 106 95-109 [facility] HospitalZiqshqmYYETLMGBDHAK1525-74-21 18:46:00 Test Item Value Reference Range Interpretation Comments Creatinine Lvl (test code = Creatinine 0.9 0.5-1.4 Lvl) [facility] HospitalJucyspfMRIXQDDKABEE9968-99-24 18:46:00 Test Item Value Reference Range Interpretation Comments Potassium Lvl (test code = Potassium 4.2 3.5-5.1 Lvl) [facility] HospitalFrjdnfzULZNHSPAFXQH1921-41-01 18:46:00 Test Item Value Reference Range Interpretation Comments Sodium Lvl (test code = Sodium Lvl) 139 135-145 [facility] HospitalBuynbyrARVQSQELGOYP6011-78-59 18:46:00 Test Item Value Reference Range Interpretation Comments CO2 (test code = CO2) 24 24-32 [facility] HospitalOinkpxzHDHLJWIOHQXV3588-65-19 18:46:00 Test Item Value Reference Range Interpretation Comments BUN (test code = BUN) 16 7-22 [facility] HospitalZovmgziHVYVXVQAGQJQ9154-64-46 18:46:00 Test Item Value Reference Range Interpretation Comments Glucose Lvl (test code = Glucose Lvl) 141 70-99 [facility] HospitalNoeejbiAGGOJGFCPBEB3471-81-93 18:46:00 Test Item Value Reference Range Interpretation Comments Albumin Lvl (test code = Albumin Lvl) 3.6 3.5-5.0 [facility] HospitalYpqukitQXTSLGIYLLUW0590-93-69 18:46:00 Test Item Value Reference Range Interpretation Comments Alk Phos (test code = Alk Phos) 65 39-136 [facility] HospitalWhselmkIDAJWCILHBYO2839-73-23 18:46:00 Test Item Value Reference Range Interpretation Comments Bili Total (test code = Bili Total) 0.3 0.2-1.3 [facility] HospitalEkbjttpMEEDMCRFNMJY2161-29-82 18:46:00 Test Item Value Reference Range Interpretation Comments ALT (test code = ALT) 100 See_Comment [Auto mated message] The system which ge nerated this result transmit elizabeth reference range : <=65. The reference range was not used to interpr et this result as margaret l/abnormal. [facility] HospitalCadavvfFGPZRACYRJMQ8137-10-37 18:46:00 Test Item Value Reference Range Interpretation Comments AST (test code = AST) 53 See_Comment [Auto mated message] The system which ge nerated this result transmit elizabeth reference range : <=37. The reference range was not used to interpr et this result as margaret l/abnormal. [facility] HospitalTypscjoZPQVCQYSWIFD8214-90-13 18:46:00 Test Item Value Reference Range Interpretation Comments Total Protein (test code = Total 6.9 6.4-8.4 Protein) [facility]lineCphogxtGHWKCUYLHT8486-84-13 18:46:00 Test Item Value Reference Range Interpretation Comments Eosinophils (test code = 4.2 See_Comment [A utomated message] The Eosinophils) system which ge nerated this result tra nsmitted reference range : <=4.0. The reference r mitra was not used to int erpret this result as normal/abnormal . [facility]lineIiqkmhoSXHISNUGKY8208-12-25 18:46:00 Test Item Value Reference Range Interpretation Comments Segs (test code = Segs) 56.4 45.0-75.0 [facility]lineVttioosNBPIDUPAPZ9924-17-52 18:46:00 Test Item Value Reference Range Interpretation Comments Monocytes (test code = Monocytes) 10.3 2.0-12.0 [facility]lineDxpyiksLFQVCYLQHT4898-83-85 18:46:00 Test Item Value Reference Range Interpretation Comments Lymphocytes (test code = Lymphocytes) 28.0 20.0-40.0 [facility]lineMhscpbnHBHMRUPJZC0610-50-07 18:46:00 Test Item Value Reference Range Interpretation Comments Monocytes # (test code 0.5 See_Comment [Aut omated message] The = Monocytes #) system which generated this result tra nsmitted reference range : <=0.8. The reference r mitra was not used to int erpret this result as normal/abnormal . [facility]lineDoqdfotZPZLNPTVXT2976-41-43 18:46:00 Test Item Value Reference Range Interpretation Comments Basophils (test code = 1.1 See_Comment [Aut omated message] The Basophils) system which ge nerated this result tra nsmitted reference range : <=1.0. The reference r mitra was not used to int erpret this result as normal/abnormal . [facility]lineVrtnrayBCYYTUNTLB9468-73-12 18:46:00 Test Item Value Reference Range Interpretation Comments Lymphocytes # (test code = Lymphocytes 1.5 1.0-5.5 #) [facility]lineUtmlhgoXJRCJUFVYM4348-29-86 18:46:00 Test Item Value Reference Range Interpretation Comments Segs-Bands # (test code = Segs-Bands #) 2.9 1.5-8.1 [facility]lineLwzusexXETFFOERWN3950-54-02 18:46:00 Test Item Value Reference Range Interpretation Comments Eosinophils # (test code 0.2 See_Comment [A utomated message] The = Eosinophils #) system [facility] h generated this result tra nsmitted reference range : <=0.5. The reference r mitra was not used to int erpret this result as normal/abnormal . [facility]lineOendjubQJHAEHQIZI2835-32-28 18:46:00 Test Item Value Reference Range Interpretation Comments Basophils # (test code 0.1 See_Comment [Aut omated message] The = Basophils #) system which generated this result tra nsmitted reference range : <=0.2. The reference r mitra was not used to int erpret this result as normal/abnormal . [facility]lineTnzfnuqRPPMEQBCNR6959-50-49 18:46:00 Test Item Value Reference Range Interpretation Comments PT (test code = PT) 11.2 s 12.0-14.7 [facility]lineBvxhatiJYPEJDTPQJ9786-96-45 18:46:00 Test Item Value Reference Range Interpretation Comments INR (test code = INR) 0.82 0.85-1.17 [facility]lineBbcowanTBKOTUFZFH3911-15-12 18:46:00 Test Item Value Reference Range Interpretation Comments PTT (test code = PTT) 28.6 s 22.9-35.8 [facility]lineMsltrygSGCTXSMOCC1980-96-75 18:46:00 Test Item Value Reference Range Interpretation Comments MPV (test code = MPV) 8.1 7.4-10.4 [facility]lineOlgevskCUSECOOQBY1996-63-18 18:46:00 Test Item Value Reference Range Interpretation Comments Platelet (test code = Platelet) 301 133-450 [facility]lineCchbasySPZEBWGGMR4547-16-75 18:46:00 Test Item Value Reference Range Interpretation Comments RDW (test code = RDW) 14.5 11.5-14.5 [facility]lineSyhslddECBUJFMKAG7857-67-56 18:46:00 Test Item Value Reference Range Interpretation Comments RBC (test code = RBC) 4.84 4.70-6.10 [facility]lineJzsfdzpNSYJYYSAAQ5917-66-14 18:46:00 Test Item Value Reference Range Interpretation Comments Hgb (test code = Hgb) 14.4 14.0-18.0 [facility]lineBmtdumgIXFUHUNXIF7555-70-41 18:46:00 Test Item Value Reference Range Interpretation Comments WBC (test code = WBC) 5.2 3.7-10.4 [facility]lineOlffnpvLBORTBYDWN2923-96-25 18:46:00 Test Item Value Reference Range Interpretation Comments MCH (test code = MCH) 29.8 pg 27.0-31.0 [facility] CenterQbcpjbrFZZXLIOEED9658-01-67 18:46:00 Test Item Value Reference Range Interpretation Comments MCV (test code = MCV) 92.0 80.0-94.0 [facility] CenterXkgbdmdZJQYIHZACG5187-55-74 18:46:00 Test Item Value Reference Range Interpretation Comments Hct (test code = Hct) 44.5 42.0-54.0 [facility] CenterLzxlyusORCDJQMUFM2958-26-04 18:46:00 Test Item Value Reference Range Interpretation Comments MCHC (test code = MCHC) 32.4 32.0-36.0 [facility] CenterIukupwjILCAAEOTVM9937-71-18 18:46:00 Test Item Value Reference Range Interpretation Comments [place]-Hep C Ab (test Negative *NA*(07/22/14 code = [place]-Hep C 1:46 PM) Ab) [facility] AND [id number] 18:46:00 Test Item Value Reference Range Interpretation Comments UA Urobilinogen (test code = UA <=1.0 mg/dL 0.1-1.0 Urobilinogen) [facility] AND [id number] 18:46:00 Test Item Value Reference Range Interpretation Comments UA Sq Epi (test code = UA Sq Epi) None Seen [facility] AND [id number] 18:46:00 Test Item Value Reference Range Interpretation Comments UA Leuk Est (test Negative (07/22/14 1:46 code = UA Leuk Est) PM) [facility] AND [id number] 18:46:00 Test Item Value Reference Range Interpretation Comments UA Nitrite (test code Negative (07/22/14 1:46 = UA Nitrite) PM) [facility] AND [id number] 18:46:00 Test Item Value Reference Range Interpretation Comments UA Blood (test code = Negative (07/22/14 1:46 UA Blood) PM) [facility] AND [id number] 18:46:00 Test Item Value Reference Range Interpretation Comments UA Ketones (test code = UA Negative mg/dL Ketones) [facility] AND [id number] 18:46:00 Test Item Value Reference Range Interpretation Comments UA Bili (test code = Negative *NA*(07/22/14 UA Bili) 1:46 PM) [facility] [id number] 18:46:00 Test Item Value Reference Range Interpretation Comments UA Bacteria (test code = UA Occasional /HPF Bacteria) [facility] [id number] 18:46:00 Test Item Value Reference Range Interpretation Comments UA RBC (test code = no gt See_Comment [Automa elizabeth message] The UA RBC) system which ge nerated this result transmit elizabeth reference range : <=2. The reference range was not used to interpr et this result as margaret l/abnormal. [facility] [id number] 18:46:00 Test Item Value Reference Range Interpretation Comments UA WBC (test code = 1 See_Comment [Automa elizabeth message] The UA WBC) system which ge nerated this result transmit elizabeth reference range : <=5. The reference range was not used to interpr et this result as margaret l/abnormal. [facility] [id number] 18:46:00 Test Item Value Reference Range Interpretation Comments UA Glucose (test code = UA Glucose) 30 mg/dL [facility] [id number] 18:46:00 Test Item Value Reference Range Interpretation Comments UA Protein (test code = UA Negative mg/dL Protein) [facility] [id number] 18:46:00 Test Item Value Reference Range Interpretation Comments UA pH (test code = UA pH) 6.5 5.0-8.0 [facility] [id number] 18:46:00 Test Item Value Reference Range Interpretation Comments UA Turbidity (test code = Clear (07/22/14 1:46 UA Turbidity) PM) [facility] [id number] 18:46:00 Test Item Value Reference Range Interpretation Comments UA Spec Grav (test code = UA Spec Grav) 1.010 [facility] [id number] 18:46:00 Test Item Value Reference Range Interpretation Comments UA Color (test code = Light Yellow UA Color) *NA*(07/22/14 1:46 PM) [facility] [id number] 18:46:00 Test Item Value Reference Range Interpretation Comments Magnesium Lvl (test code = Magnesium 1.8 1.8-2.4 Lvl) [facility] VfkesrwIEAOWXKNZCNH0862-47-41 18:46:00 Test Item Value Reference Range Interpretation Comments AGAP (test code = AGAP) 13.2 10.0-20.0 [facility] HospitalAluwoqzNBDWREKDQUPN5298-03-90 18:46:00 Test Item Value Reference Range Interpretation Comments B/C Ratio (test code = B/C Ratio) 18 6-25 [facility] HospitalCfqjsbgQJIXAQMDBSWP3614-22-89 18:46:00 Test Item Value Reference Range Interpretation Comments A/G Ratio (test code = A/G Ratio) 1.1 0.7-1.6 [facility] HospitalEqqkisbXYPPBVFAIJVL4389-58-41 18:46:00 Test Item Value Reference Range Interpretation Comments Globulin (test code = Globulin) 3.3 2.0-4.0 [facility] HospitalIomvtuzXXVDKUXBQSZH3565-84-59 18:46:00 Test Item Value Reference Range Interpretation Comments eGFR (test code = eGFR) 99 [facility] HospitalCmkwrxzGNBFOITYOOOD5373-43-31 18:46:00 Test Item Value Reference Range Interpretation Comments Calcium Lvl (test code = Calcium Lvl) 9.0 8.5-10.5 [facility] HospitalCywbfwkXPIYNETBNXSM0639-59-72 18:46:00 Test Item Value Reference Range Interpretation Comments Chloride Lvl (test code = Chloride Lvl) 106 95-109 [facility] HospitalSkbtdurWRNVUJCIKKSP5663-95-88 18:46:00 Test Item Value Reference Range Interpretation Comments Creatinine Lvl (test code = Creatinine 0.9 0.5-1.4 Lvl) [facility] HospitalQhddnmdTKKMVXDJGPBI9759-21-94 18:46:00 Test Item Value Reference Range Interpretation Comments Potassium Lvl (test code = Potassium 4.2 3.5-5.1 Lvl) [facility] HospitalIbnaeyrEIYKDIEVUCYQ0909-06-89 18:46:00 Test Item Value Reference Range Interpretation Comments Sodium Lvl (test code = Sodium Lvl) 139 135-145 [facility] HospitalPoojqpqSSVNTWQKPTCN6226-44-79 18:46:00 Test Item Value Reference Range Interpretation Comments CO2 (test code = CO2) 24 24-32 [facility] HospitalTwawsreOWXVKQEIGODM9703-93-35 18:46:00 Test Item Value Reference Range Interpretation Comments BUN (test code = BUN) 16 7-22 [facility] HospitalAhyctxjPHWUZUXNOGRL2746-52-82 18:46:00 Test Item Value Reference Range Interpretation Comments Glucose Lvl (test code = Glucose Lvl) 141 70-99 [facility] HospitalKwczyesRXFQIISCDRGE0463-03-98 18:46:00 Test Item Value Reference Range Interpretation Comments Albumin Lvl (test code = Albumin Lvl) 3.6 3.5-5.0 [facility] HospitalGrwupsnGXXBZBAMERGH3298-90-12 18:46:00 Test Item Value Reference Range Interpretation Comments Alk Phos (test code = Alk Phos) 65 39-136 [facility] HospitalUreppgqPUDXIFGJBYUS9217-21-34 18:46:00 Test Item Value Reference Range Interpretation Comments Bili Total (test code = Bili Total) 0.3 0.2-1.3 [facility] HospitalDlkltdpWEJBFOKZJKGW6536-89-72 18:46:00 Test Item Value Reference Range Interpretation Comments ALT (test code = ALT) 100 See_Comment [Auto mated message] The system which ge nerated this result transmit elizabeth reference range : <=65. The reference range was not used to interpr et this result as margaret l/abnormal. [facility] HospitalFadefwwTAXLKLMERKCS4883-19-44 18:46:00 Test Item Value Reference Range Interpretation Comments AST (test code = AST) 53 See_Comment [Auto mated message] The system which ge nerated this result transmit elizabeth reference range : <=37. The reference range was not used to interpr et this result as margaret l/abnormal. [facility] HospitalVpfilcbRVZWZTSXVHNV3886-56-67 18:46:00 Test Item Value Reference Range Interpretation Comments Total Protein (test code = Total 6.9 6.4-8.4 Protein) [facility]lineSecnrntMJPATGMJHR2279-32-88 18:46:00 Test Item Value Reference Range Interpretation Comments Eosinophils (test code = 4.2 See_Comment [A utomated message] The Eosinophils) system which ge nerated this result tra nsmitted reference range : <=4.0. The reference r mitra was not used to int erpret this result as normal/abnormal . [facility]lineYlkmhfgNUBYTPZSWZ0811-69-08 18:46:00 Test Item Value Reference Range Interpretation Comments Segs (test code = Segs) 56.4 45.0-75.0 [facility]lineYmtzdwlPZYRKMYPQE6788-01-96 18:46:00 Test Item Value Reference Range Interpretation Comments Monocytes (test code = Monocytes) 10.3 2.0-12.0 [facility]lineQwfqsbfWJUXHWRFYO6294-86-14 18:46:00 Test Item Value Reference Range Interpretation Comments Lymphocytes (test code = Lymphocytes) 28.0 20.0-40.0 [facility]lineWbxjzrxVDUYLZNKHU0473-91-51 18:46:00 Test Item Value Reference Range Interpretation Comments Monocytes # (test code 0.5 See_Comment [Aut omated message] The = Monocytes #) system which generated this result tra nsmitted reference range : <=0.8. The reference r mitra was not used to int erpret this result as normal/abnormal . [facility]lineHmmqyikONOEGFLJXZ5755-36-61 18:46:00 Test Item Value Reference Range Interpretation Comments Basophils (test code = 1.1 See_Comment [Aut omated message] The Basophils) system which ge nerated this result tra nsmitted reference range : <=1.0. The reference r mitra was not used to int erpret this result as normal/abnormal . [facility]lineXfjbifiCNPYCCOEWX6856-31-22 18:46:00 Test Item Value Reference Range Interpretation Comments Lymphocytes # (test code = Lymphocytes 1.5 1.0-5.5 #) [facility]lineGqogftpCGYSXPYEPU4780-54-29 18:46:00 Test Item Value Reference Range Interpretation Comments Segs-Bands # (test code = Segs-Bands #) 2.9 1.5-8.1 [facility]linePgixzxzZUOKNDXLLQ9437-95-22 18:46:00 Test Item Value Reference Range Interpretation Comments Eosinophils # (test code 0.2 See_Comment [A utomated message] The = Eosinophils #) system whic h generated this result tra nsmitted reference range : <=0.5. The reference r mitra was not used to int erpret this result as normal/abnormal . [facility]linePzguubaIYOSKGEHUS1985-78-27 18:46:00 Test Item Value Reference Range Interpretation Comments Basophils # (test code 0.1 See_Comment [Aut omated message] The = Basophils #) system which generated this result tra nsmitted reference range : <=0.2. The reference r mitra was not used to int erpret this result as normal/abnormal . [facility]lineAhhuljyUKCNXPCTOU1054-54-45 18:46:00 Test Item Value Reference Range Interpretation Comments PT (test code = PT) 11.2 s 12.0-14.7 [facility]lineGabwnfxLIIEXJANPG8367-29-38 18:46:00 Test Item Value Reference Range Interpretation Comments INR (test code = INR) 0.82 0.85-1.17 [facility] ShorelineUjooxmxRUZISOCUPX5197-07-21 18:46:00 Test Item Value Reference Range Interpretation Comments PTT (test code = PTT) 28.6 s 22.9-35.8 [facility]lineVbbewfmAETEOYBQRP6153-03-75 18:46:00 Test Item Value Reference Range Interpretation Comments MPV (test code = MPV) 8.1 7.4-10.4 [place] 154995-06-09 18:46:00 Test Item Value Reference Range Interpretation Comments Platelet (test code = Platelet) 301 133-450 [facility]lineTqiqrnwLZDJMKXKVU3410-32-81 18:46:00 Test Item Value Reference Range Interpretation Comments RDW (test code = RDW) 14.5 11.5-14.5 [facility]lineIrjilfqQYDRSXVTID2663-48-59 18:46:00 Test Item Value Reference Range Interpretation Comments RBC (test code = RBC) 4.84 4.70-6.10 [facility] ShorelineMxecptoPTIBUIPQGE4693-22-74 18:46:00 Test Item Value Reference Range Interpretation Comments Hgb (test code = Hgb) 14.4 14.0-18.0 [facility]lineVraxcodQFJTLNGSFN4272-87-85 18:46:00 Test Item Value Reference Range Interpretation Comments WBC (test code = WBC) 5.2 3.7-10.4 [facility]lineCwfouznZQCNFPPSEP7357-54-08 18:46:00 Test Item Value Reference Range Interpretation Comments MCH (test code = MCH) 29.8 pg 27.0-31.0 [facility]lineQgqopdaKPGJOLLRMB6485-37-29 18:46:00 Test Item Value Reference Range Interpretation Comments MCV (test code = MCV) 92.0 80.0-94.0 [facility]lineQckxbshLNXIRRYSLM3933-33-32 18:46:00 Test Item Value Reference Range Interpretation Comments Hct (test code = Hct) 44.5 42.0-54.0 [facility]lineZdrbknjTPZLWBCUQJ9798-92-96 18:46:00 Test Item Value Reference Range Interpretation Comments MCHC (test code = MCHC) 32.4 32.0-36.0 [facility] CenterKhpgbzbWUQLQQEVCL0168-50-00 18:46:00 Test Item Value Reference Range Interpretation Comments Kan[place]-Hep C Ab (test Negative *NA*(07/22/14 code = Kan[place]-Hep C 1:46 PM) Ab) [facility] AND [id number] 18:46:00 Test Item Value Reference Range Interpretation Comments UA Urobilinogen (test code = UA <=1.0 mg/dL 0.1-1.0 Urobilinogen) [facility] AND [id number] 18:46:00 Test Item Value Reference Range Interpretation Comments UA Sq Epi (test code = UA Sq Epi) None Seen [facility] AND [id number] 18:46:00 Test Item Value Reference Range Interpretation Comments UA Leuk Est (test Negative (07/22/14 1:46 code = UA Leuk Est) PM) [facility] AND [id number] 18:46:00 Test Item Value Reference Range Interpretation Comments UA Nitrite (test code Negative (07/22/14 1:46 = UA Nitrite) PM) [facility] AND [id number] 18:46:00 Test Item Value Reference Range Interpretation Comments UA Blood (test code = Negative (07/22/14 1:46 UA Blood) PM) [facility] AND [id number] 18:46:00 Test Item Value Reference Range Interpretation Comments UA Ketones (test code = UA Negative mg/dL Ketones) [facility] AND [id number] 18:46:00 Test Item Value Reference Range Interpretation Comments UA Bili (test code = Negative *NA*(07/22/14 UA Bili) 1:46 PM) [facility] AND [id number] 18:46:00 Test Item Value Reference Range Interpretation Comments UA Bacteria (test code = UA Occasional /HPF Bacteria) [facility] AND [id number] 18:46:00 Test Item Value Reference Range Interpretation Comments UA RBC (test code = no gt See_Comment [Automa elizabeth message] The UA RBC) system which ge nerated this result transmit elizabeth reference range : <=2. The reference range was not used to interpr et this result as margaret l/abnormal. [facility] AND [id number] 18:46:00 Test Item Value Reference Range Interpretation Comments UA WBC (test code = 1 See_Comment [Automa elizabeth message] The UA WBC) system which ge nerated this result transmit elizabeth reference range : <=5. The reference range was not used to interpr et this result as margaret l/abnormal. [facility] AND [id number] 18:46:00 Test Item Value Reference Range Interpretation Comments UA Glucose (test code = UA Glucose) 30 mg/dL [facility] AND [id number] 18:46:00 Test Item Value Reference Range Interpretation Comments UA Protein (test code = UA Negative mg/dL Protein) [facility] AND [id number] 18:46:00 Test Item Value Reference Range Interpretation Comments UA pH (test code = UA pH) 6.5 5.0-8.[address] [facility] AND [id number] 18:46:00 Test Item Value Reference Range Interpretation Comments UA Turbidity (test code = Clear (07/22/14 1:46 UA Turbidity) PM) [facility] AND [id number] 18:46:00 Test Item Value Reference Range Interpretation Comments UA Spec Grav (test code = UA Spec Grav) 1.[address] [facility] AND [id number] 18:46:00 Test Item Value Reference Range Interpretation Comments UA Color (test code = Light Yellow UA Color) *NA*(07/22/14 1:46 PM) [facility] [id number] 18:46:00 Test Item Value Reference Range Interpretation Comments Magnesium Lvl (test code = Magnesium 1.8 1.8-2.4 Lvl) [facility] HospitalAgclemvUJYLOQHFTQAB2492-94-72 18:46:00 Test Item Value Reference Range Interpretation Comments AGAP (test code = AGAP) 13.2 10.0-20.0 [facility] HospitalRjuvvhlECRXMNGLAEQY1232-38-96 18:46:00 Test Item Value Reference Range Interpretation Comments B/C Ratio (test code = B/C Ratio) 18 6-25 [facility] HospitalFbdjcneNIMRWNZYMECG6908-31-44 18:46:00 Test Item Value Reference Range Interpretation Comments A/G Ratio (test code = A/G Ratio) 1.1 0.7-1.6 [facility] HospitalUayilfgDXFIQBEZNGBB1444-09-06 18:46:00 Test Item Value Reference Range Interpretation Comments Globulin (test code = Globulin) 3.3 2.0-4.0 [facility] HospitalOfkmzsvVWWLSRZVDJLZ6908-13-96 18:46:00 Test Item Value Reference Range Interpretation Comments eGFR (test code = eGFR) 99 [facility] HospitalHfyvfprTPAIAPJRCHUK4858-19-00 18:46:00 Test Item Value Reference Range Interpretation Comments Calcium Lvl (test code = Calcium Lvl) 9.0 8.5-10.5 [facility] HospitalYtooosyNQFRDURZCYCE7587-66-16 18:46:00 Test Item Value Reference Range Interpretation Comments Chloride Lvl (test code = Chloride Lvl) 106 95-109 [facility] HospitalRddibwrAHSZADIKVWGT2644-90-74 18:46:00 Test Item Value Reference Range Interpretation Comments Creatinine Lvl (test code = Creatinine 0.9 0.5-1.4 Lvl) [facility] HospitalYrndgoqTLJQGSGSOPWF7283-86-35 18:46:00 Test Item Value Reference Range Interpretation Comments Potassium Lvl (test code = Potassium 4.2 3.5-5.1 Lvl) [facility] HospitalViuluyqJBXFZDACCQLI8724-19-00 18:46:00 Test Item Value Reference Range Interpretation Comments Sodium Lvl (test code = Sodium Lvl) 139 135-145 [facility] HospitalTycearzLFDKRMUMWEME4749-11-99 18:46:00 Test Item Value Reference Range Interpretation Comments CO2 (test code = CO2) 24 24-32 [facility] HospitalGbdftbmWXGMJFEUCQUB0059-05-10 18:46:00 Test Item Value Reference Range Interpretation Comments BUN (test code = BUN) 16 7-22 [facility] HospitalEnuwiznCOOHLOIRTVEZ6711-12-38 18:46:00 Test Item Value Reference Range Interpretation Comments Glucose Lvl (test code = Glucose Lvl) 141 70-99 [facility] HospitalCblejwrHILTTDHMSDXL8463-48-11 18:46:00 Test Item Value Reference Range Interpretation Comments Albumin Lvl (test code = Albumin Lvl) 3.6 3.5-5.0 [facility] HospitalSvksmrpWYSCYOEFEVGF4576-69-97 18:46:00 Test Item Value Reference Range Interpretation Comments Alk Phos (test code = Alk Phos) 65 39-136 [facility] HospitalEpyjttzOPMLYIRTIEPK2673-80-19 18:46:00 Test Item Value Reference Range Interpretation Comments Bili Total (test code = Bili Total) 0.3 0.2-1.3 [facility] HospitalDfxubnkLRNLJVATDWGQ6890-62-04 18:46:00 Test Item Value Reference Range Interpretation Comments ALT (test code = ALT) 100 See_Comment [Auto mated message] The system which ge nerated this result transmit elizabeth reference range : <=65. The reference range was not used to interpr et this result as margaret l/abnormal. [facility] HospitalKfgsrlyIONCPARXPEYQ8434-17-10 18:46:00 Test Item Value Reference Range Interpretation Comments AST (test code = AST) 53 See_Comment [Auto mated message] The system which ge nerated this result transmit elizabeth reference range : <=37. The reference range was not used to interpr et this result as margaret l/abnormal. [facility] HospitalWlikwblBMMQGZJDTMUD5911-84-50 18:46:00 Test Item Value Reference Range Interpretation Comments Total Protein (test code = Total 6.9 6.4-8.4 Protein) [facility]lineKljxdpvVBMIJUKLBU7199-29-87 18:46:00 Test Item Value Reference Range Interpretation Comments Eosinophils (test code = 4.2 See_Comment [A utomated message] The Eosinophils) system which ge nerated this result tra nsmitted reference range : <=4.0. The reference r mitra was not used to int erpret this result as normal/abnormal . [facility]lineLsevqsiXLPGXFEBRI2253-84-11 18:46:00 Test Item Value Reference Range Interpretation Comments Segs (test code = Segs) 56.4 45.0-75.0 [facility]lineFbvafxfCOTGWXNFJK1616-02-21 18:46:00 Test Item Value Reference Range Interpretation Comments Monocytes (test code = Monocytes) 10.3 2.0-12.0 [facility]lineHdvjjmwQKCDBBHFFG7557-88-66 18:46:00 Test Item Value Reference Range Interpretation Comments Lymphocytes (test code = Lymphocytes) 28.0 20.0-40.0 [facility]lineBjcuufiXIQXQIYJGR3733-88-56 18:46:00 Test Item Value Reference Range Interpretation Comments Monocytes # (test code 0.5 See_Comment [Aut omated message] The = Monocytes #) system which generated this result tra nsmitted reference range : <=0.8. The reference r mitra was not used to int erpret this result as normal/abnormal . [facility]lineHijtxybWRYKHHWFMF4557-80-86 18:46:00 Test Item Value Reference Range Interpretation Comments Basophils (test code = 1.1 See_Comment [Aut omated message] The Basophils) system which ge nerated this result tra nsmitted reference range : <=1.0. The reference r mitra was not used to int erpret this result as normal/abnormal . [facility]lineGcmkubtMFTHPIVDMJ1992-60-99 18:46:00 Test Item Value Reference Range Interpretation Comments Lymphocytes # (test code = Lymphocytes 1.5 1.0-5.5 #) [facility]lineCrlsiyeNFBOGPHBRL7371-11-30 18:46:00 Test Item Value Reference Range Interpretation Comments Segs-Bands # (test code = Segs-Bands #) 2.9 1.5-8.1 [facility]lineEthzfcqEVXOWGWAPB3353-23-53 18:46:00 Test Item Value Reference Range Interpretation Comments Eosinophils # (test code 0.2 See_Comment [A utomated message] The = Eosinophils #) system whic h generated this result tra nsmitted reference range : <=0.5. The reference r mitra was not used to int erpret this result as normal/abnormal . [facility]lineBfvmwsyDHZWPNRJRY9876-70-99 18:46:00 Test Item Value Reference Range Interpretation Comments Basophils # (test code 0.1 See_Comment [Aut omated message] The = Basophils #) system which generated this result tra nsmitted reference range : <=0.2. The reference r mitra was not used to int erpret this result as normal/abnormal . [facility]lineUehilzfNTCFDMKJNV0441-33-98 18:46:00 Test Item Value Reference Range Interpretation Comments PT (test code = PT) 11.2 s 12.0-14.7 [facility]lineVyqrqjaODDVFRXAWM0071-17-88 18:46:00 Test Item Value Reference Range Interpretation Comments INR (test code = INR) 0.82 0.85-1.17 [facility]lineYcfiymvUAGOXQXSQR8935-18-16 18:46:00 Test Item Value Reference Range Interpretation Comments PTT (test code = PTT) 28.6 s 22.9-35.8 [facility]lineNmnytcfCMEXNRUBCQ0798-21-70 18:46:00 Test Item Value Reference Range Interpretation Comments MPV (test code = MPV) 8.1 7.4-10.4 [facility]lineRyjquxoOPFHHLLGNY0604-12-87 18:46:00 Test Item Value Reference Range Interpretation Comments Platelet (test code = Platelet) 301 133-450 [facility]LdtqpknWIBYSUKPJD9007-87-45 18:46:00 Test Item Value Reference Range Interpretation Comments RDW (test code = RDW) 14.5 11.5-14.5 [facility] HospitalYhuphllYYDGYOKCSR2885-94-80 18:46:00 Test Item Value Reference Range Interpretation Comments RBC (test code = RBC) 4.84 4.70-6.10 [facility] HospitalWafliacVOQANMXXLI4741-49-37 18:46:00 Test Item Value Reference Range Interpretation Comments Hgb (test code = Hgb) 14.4 14.0-18.0 [facility]lineIccanrtEHWNZYRBPP8063-62-64 18:46:00 Test Item Value Reference Range Interpretation Comments WBC (test code = WBC) 5.2 3.7-10.4 [facility]lineIfeqikkHYIZXXMRNA8805-72-51 18:46:00 Test Item Value Reference Range Interpretation Comments MCH (test code = MCH) 29.8 pg 27.0-31.0 [facility]lineMmxmhicOJBZIACXBC2662-35-62 18:46:00 Test Item Value Reference Range Interpretation Comments MCV (test code = MCV) 92.0 80.0-94.0 [facility] CenterVvmvbpxRTCCYCJLIP0259-01-74 18:46:00 Test Item Value Reference Range Interpretation Comments Hct (test code = Hct) 44.5 42.0-54.0 [facility] HospitalQrioxgtMCMEFXPAUX1375-12-06 18:46:00 Test Item Value Reference Range Interpretation Comments MCHC (test code = MCHC) 32.4 32.0-36.0 [facility] CenterOdqisriVWWATUMBRX2165-49-27 18:46:00 Test Item Value Reference Range Interpretation Comments [place]-Hep C Ab (test Negative *NA*(07/22/14 code = [place]-Hep C 1:46 PM) Ab) [facility] [id number] 18:46:00 Test Item Value Reference Range Interpretation Comments UA Urobilinogen (test code = UA <=1.0 mg/dL 0.1-1.0 Urobilinogen) [facility] [id number] 18:46:00 Test Item Value Reference Range Interpretation Comments UA Sq Epi (test code = UA Sq Epi) None [facility] [id number] 18:46:00 Test Item Value Reference Range Interpretation Comments UA Leuk Est (test Negative (07/22/14 1:46 code = UA Leuk Est) PM) [facility] AND [id number] 18:46:00 Test Item Value Reference Range Interpretation Comments UA Nitrite (test code Negative (07/22/14 1:46 = UA Nitrite) PM) [facility] AND [id number] 18:46:00 Test Item Value Reference Range Interpretation Comments UA Blood (test code = Negative (07/22/14 1:46 UA Blood) PM) [facility] AND [id number] 18:46:00 Test Item Value Reference Range Interpretation Comments UA Ketones (test code = UA Negative mg/dL Ketones) [facility] AND [id number] 18:46:00 Test Item Value Reference Range Interpretation Comments UA Bili (test code = Negative *NA*(07/22/14 UA Bili) 1:46 PM) [facility] AND [id number] 18:46:00 Test Item Value Reference Range Interpretation Comments UA Bacteria (test code = UA Occasional /HPF Bacteria) [facility] AND [id number] 18:46:00 Test Item Value Reference Range Interpretation Comments UA RBC (test code = no gt See_Comment [Automa elizabeth message] The UA RBC) system which ge nerated this result transmit elizabeth reference range : <=2. The reference range was not used to interpr et this result as margaret l/abnormal. [facility] AND [id number] 18:46:00 Test Item Value Reference Range Interpretation Comments UA WBC (test code = 1 See_Comment [Automa elizabeth message] The UA WBC) system which ge nerated this result transmit elizabeth reference range : <=5. The reference range was not used to interpr et this result as margaret l/abnormal. [facility] AND [id number] 18:46:00 Test Item Value Reference Range Interpretation Comments UA Glucose (test code = UA Glucose) 30 mg/dL [facility] AND [id number] 18:46:00 Test Item Value Reference Range Interpretation Comments UA Protein (test code = UA Negative mg/dL Protein) [facility] AND [id number] 18:46:00 Test Item Value Reference Range Interpretation Comments UA pH (test code = UA pH) 6.5 5.0-8.0 [facility] [id number] 18:46:00 Test Item Value Reference Range Interpretation Comments UA Turbidity (test code = Clear (07/22/14 1:46 UA Turbidity) PM) [facility] [id number] 18:46:00 Test Item Value Reference Range Interpretation Comments UA Spec Grav (test code = UA Spec Grav) 1.[address] [facility] AND [id number] 18:46:00 Test Item Value Reference Range Interpretation Comments UA Color (test code = Light Yellow UA Color) *NA*(07/22/14 1:46 PM) [facility]annCHEM [id number] 18:46:00 Test Item Value Reference Range Interpretation Comments Magnesium Lvl (test code = Magnesium 1.8 1.8-2.4 Lvl) [facility]ZlfoxauRJIPUKZXWJHD0990-31-05 18:46:00 Test Item Value Reference Range Interpretation Comments AGAP (test code = AGAP) 13.2 10.0-20.0 [facility] HospitalYapnxztMFQLWVDPCPIK3799-15-04 18:46:00 Test Item Value Reference Range Interpretation Comments B/C Ratio (test code = B/C Ratio) 18 6-25 [facility] HospitalJlorfymZSBHXUPKLBQJ7159-82-59 18:46:00 Test Item Value Reference Range Interpretation Comments A/G Ratio (test code = A/G Ratio) 1.1 0.7-1.6 [facility] HospitalLmmsgkiJJYJIZOHHJWQ9718-51-50 18:46:00 Test Item Value Reference Range Interpretation Comments Globulin (test code = Globulin) 3.3 2.0-4.0 [facility] HospitalBogpwjiTHKQTWHMSQUW6668-85-84 18:46:00 Test Item Value Reference Range Interpretation Comments eGFR (test code = eGFR) 99 [facility] HospitalAxvnzaoCNILAKKLPQDD8238-81-52 18:46:00 Test Item Value Reference Range Interpretation Comments Calcium Lvl (test code = Calcium Lvl) 9.0 8.5-10.5 [facility] CenterClzrxrhBUXOXGJXOHQM6773-59-05 18:46:00 Test Item Value Reference Range Interpretation Comments Chloride Lvl (test code = Chloride Lvl) 106 95-109 [facility] HospitalBvqhzgvLDJTKJDTTKPR4813-86-67 18:46:00 Test Item Value Reference Range Interpretation Comments Creatinine Lvl (test code = Creatinine 0.9 0.5-1.4 Lvl) [facility] HospitalXtnfpzkLXAGIWDGLRPX3326-51-23 18:46:00 Test Item Value Reference Range Interpretation Comments Potassium Lvl (test code = Potassium 4.2 3.5-5.1 Lvl) [facility] HospitalEvubwcjWUUORXHSDZXR4271-46-79 18:46:00 Test Item Value Reference Range Interpretation Comments Sodium Lvl (test code = Sodium Lvl) 139 135-145 [facility] HospitalBwinqxhSJYOGKLZUKKV3477-41-20 18:46:00 Test Item Value Reference Range Interpretation Comments CO2 (test code = CO2) 24 24-32 [facility] HospitalCqeywmdJEZANUFWEIMM5409-37-77 18:46:00 Test Item Value Reference Range Interpretation Comments BUN (test code = BUN) 16 7-22 [facility] HospitalMmusaboMKBMXMOULTOE5666-58-82 18:46:00 Test Item Value Reference Range Interpretation Comments Glucose Lvl (test code = Glucose Lvl) 141 70-99 [facility] HospitalPoavxabWHFQWXKBBZBY4605-84-14 18:46:00 Test Item Value Reference Range Interpretation Comments Albumin Lvl (test code = Albumin Lvl) 3.6 3.5-5.0 [facility] HospitalAgwciglYHDLDTPQWQRW5636-77-89 18:46:00 Test Item Value Reference Range Interpretation Comments Alk Phos (test code = Alk Phos) 65 39-136 [facility] HospitalWwnjjgpUIOLUNEHGFQI4316-90-10 18:46:00 Test Item Value Reference Range Interpretation Comments Bili Total (test code = Bili Total) 0.3 0.2-1.3 [facility] HospitalJifgqvjUTOCGNAONASC0026-91-61 18:46:00 Test Item Value Reference Range Interpretation Comments ALT (test code = ALT) 100 See_Comment [Auto mated message] The system which ge nerated this result transmit elizabeth reference range : <=65. The reference range was not used to interpr et this result as margaret l/abnormal. [facility] HospitalUtsnomfGMRAYQBNDXYP8290-89-65 18:46:00 Test Item Value Reference Range Interpretation Comments AST (test code = AST) 53 See_Comment [Auto mated message] The system which ge nerated this result transmit elizabeth reference range : <=37. The reference range was not used to interpr et this result as margaret l/abnormal. [facility] HospitalQgvhjjdFTXRDJMNGZLO0335-29-54 18:46:00 Test Item Value Reference Range Interpretation Comments Total Protein (test code = Total 6.9 6.4-8.4 Protein) [facility]lineTugulvoEMACTOAOCU3126-19-34 18:46:00 Test Item Value Reference Range Interpretation Comments Eosinophils (test code = 4.2 See_Comment [A utomated message] The Eosinophils) system which ge nerated this result tra nsmitted reference range : <=4.0. The reference r mitra was not used to int erpret this result as normal/abnormal . [facility]lineKgjxjdoKLLVKTJDLP2407-45-08 18:46:00 Test Item Value Reference Range Interpretation Comments Segs (test code = Segs) 56.4 45.0-75.0 [facility]lineBykxjprUNMMLPWFES5691-21-20 18:46:00 Test Item Value Reference Range Interpretation Comments Monocytes (test code = Monocytes) 10.3 2.0-12.0 [facility]lineMtwmdtxKNGOJAMQOW8531-97-49 18:46:00 Test Item Value Reference Range Interpretation Comments Lymphocytes (test code = Lymphocytes) 28.0 20.0-40.0 [facility] ShorelineZuqhvruOGREQQBHYC5246-70-68 18:46:00 Test Item Value Reference Range Interpretation Comments Monocytes # (test code 0.5 See_Comment [Aut omated message] The = Monocytes #) system which generated this result tra nsmitted reference range : <=0.8. The reference r mitra was not used to int erpret this result as normal/abnormal . [facility] ShorelineVehatbpINQOMTYEPB8229-81-09 18:46:00 Test Item Value Reference Range Interpretation Comments Basophils (test code = 1.1 See_Comment [Aut omated message] The Basophils) system which ge nerated this result tra nsmitted reference range : <=1.0. The reference r mitra was not used to int erpret this result as normal/abnormal . [facility]lineYiccbufXWAIOHHJTA9449-34-07 18:46:00 Test Item Value Reference Range Interpretation Comments Lymphocytes # (test code = Lymphocytes 1.5 1.0-5.5 #) [facility]linePsqphciOVTLYIJNYI3886-85-50 18:46:00 Test Item Value Reference Range Interpretation Comments Segs-Bands # (test code = Segs-Bands #) 2.9 1.5-8.1 [facility]lineFwjowjvHMVCEOOTOE6293-90-19 18:46:00 Test Item Value Reference Range Interpretation Comments Eosinophils # (test code 0.2 See_Comment [A utomated message] The = Eosinophils #) system whic h generated this result tra nsmitted reference range : <=0.5. The reference r mitra was not used to int erpret this result as normal/abnormal . [facility]lineHbfukltNQXNXOBVXP8636-74-36 18:46:00 Test Item Value Reference Range Interpretation Comments Basophils # (test code 0.1 See_Comment [Aut omated message] The = Basophils #) system which generated this result tra nsmitted reference range : <=0.2. The reference r mitra was not used to int erpret this result as normal/abnormal . [facility]lineLwmstmmVWLFRXXAIP1989-86-31 18:46:00 Test Item Value Reference Range Interpretation Comments PT (test code = PT) 11.2 s 12.0-14.7 [facility] ShorelineCximxsnIAVHZKFVMB7394-99-04 18:46:00 Test Item Value Reference Range Interpretation Comments INR (test code = INR) 0.82 0.85-1.17 [facility]lineQyzojqbIGOQDYPGCU8294-72-89 18:46:00 Test Item Value Reference Range Interpretation Comments PTT (test code = PTT) 28.6 s 22.9-35.8 [facility] ShorelineLytjchrMEPIBAVSAI0570-34-45 18:46:00 Test Item Value Reference Range Interpretation Comments MPV (test code = MPV) 8.1 7.4-10.4 [facility]lineKbyxlbsZMAWSDXCYA9458-36-14 18:46:00 Test Item Value Reference Range Interpretation Comments Platelet (test code = Platelet) 301 133-450 [facility]lineTcewgnmYSKFBQXZDZ3814-72-04 18:46:00 Test Item Value Reference Range Interpretation Comments RDW (test code = RDW) 14.5 11.5-14.5 [facility] ShorelineIpnhookKPOMJNUHJK3393-49-23 18:46:00 Test Item Value Reference Range Interpretation Comments RBC (test code = RBC) 4.84 4.70-6.10 [facility]lineOzijffkXJNSHWAQNR0916-18-98 18:46:00 Test Item Value Reference Range Interpretation Comments Hgb (test code = Hgb) 14.4 14.0-18.0 [facility] ShorelineHsskigsKXFQCWQPES0085-72-15 18:46:00 Test Item Value Reference Range Interpretation Comments WBC (test code = WBC) 5.2 3.7-10.4 [facility] AhajecrSKFGNLGLCE1676-08-08 18:46:00 Test Item Value Reference Range Interpretation Comments MCH (test code = MCH) 29.8 pg 27.0-31.0 [facility]TSGWOABGX2614[facility]39-69 18:46:00 Test Item Value Reference Range Interpretation Comments MCV (test code = MCV) 92.0 80.0-94.0 [facility] CenterLlpdedmXFBWYGZOJI6862-70-97 18:46:00 Test Item Value Reference Range Interpretation Comments Hct (test code = Hct) 44.5 42.0-54.0 [facility]VgjrkghPAOBAPKEPC0538-03-88 18:46:00 Test Item Value Reference Range Interpretation Comments MCHC (test code = MCHC) 32.4 32.0-36.0 [facility] CenterMgoynhvNUQKTGKGAS0936-59-93 18:46:00 Test Item Value Reference Range Interpretation Comments Kanab-Hep C Ab (test Negative *NA*(07/22/14 code = Kanab-Hep C 1:46 PM) Ab) [facility] AND [id number] 18:46:00 Test Item Value Reference Range Interpretation Comments UA Urobilinogen (test code = UA <=1.0 mg/dL 0.1-1.0 Urobilinogen) [facility] AND [id number] 18:46:00 Test Item Value Reference Range Interpretation Comments UA Sq Epi (test code = UA Sq Epi) None Seen [facility] AND [id number] 18:46:00 Test Item Value Reference Range Interpretation Comments UA Leuk Est (test Negative (07/22/14 1:46 code = UA Leuk Est) PM) [facility] AND [id number] 18:46:00 Test Item Value Reference Range Interpretation Comments UA Nitrite (test code Negative (07/22/14 1:46 = UA Nitrite) PM) [facility] AND [id number] 18:46:00 Test Item Value Reference Range Interpretation Comments UA Blood (test code = Negative (07/22/14 1:46 UA Blood) PM) [facility] AND [id number] 18:46:00 Test Item Value Reference Range Interpretation Comments UA Ketones (test code = UA Negative mg/dL Ketones) [facility] AND [id number] 18:46:00 Test Item Value Reference Range Interpretation Comments UA Bili (test code = Negative *NA*(07/22/14 UA Bili) 1:46 PM) [facility] AND [id number] 18:46:00 Test Item Value Reference Range Interpretation Comments UA Bacteria (test code = UA Occasional /HPF Bacteria) [facility] AND [id number] 18:46:00 Test Item Value Reference Range Interpretation Comments UA RBC (test code = no gt See_Comment [Automa elizabeth message] The UA RBC) system which ge nerated this result transmit elizabeth reference range : <=2. The reference range was not used to interpr et this result as margaret l/abnormal. [facility] AND [id number] 18:46:00 Test Item Value Reference Range Interpretation Comments UA WBC (test code = 1 See_Comment [Automa elizabeth message] The UA WBC) system which ge nerated this result transmit elizabeth reference range : <=5. The reference range was not used to interpr et this result as margaret l/abnormal. [facility] AND [id number] 18:46:00 Test Item Value Reference Range Interpretation Comments UA Glucose (test code = UA Glucose) 30 mg/dL [facility] AND [id number] 18:46:00 Test Item Value Reference Range Interpretation Comments UA Protein (test code = UA Negative mg/dL Protein) [facility] AND [id number] 18:46:00 Test Item Value Reference Range Interpretation Comments UA pH (test code = UA pH) 6.5 5.0-8.[address] [facility] AND [id number] 18:46:00 Test Item Value Reference Range Interpretation Comments UA Turbidity (test code = Clear (07/22/14 1:46 UA Turbidity) PM) [facility] AND [id number] 18:46:00 Test Item Value Reference Range Interpretation Comments UA Spec Grav (test code = UA Spec Grav) 1.[address] [facility] AND [id number] 18:46:00 Test Item Value Reference Range Interpretation Comments UA Color (test code = Light Yellow UA Color) *NA*(07/22/14 1:46 PM) [facility]2015-06-09 18:46:00 Test Item Value Reference Range Interpretation Comments Magnesium Lvl (test code = Magnesium 1.8 1.8-2.4 Lvl) [facility] HospitalKcpkdwfDVOXKUEUUQYK6469-12-66 18:46:00 Test Item Value Reference Range Interpretation Comments AGAP (test code = AGAP) 13.2 10.0-20.0 [facility] HospitalLhyvguuZRLTQPLTXGFI4834-68-43 18:46:00 Test Item Value Reference Range Interpretation Comments B/C Ratio (test code = B/C Ratio) 18 6-25 [facility] HospitalTdlffjsTECQYAKTKBUE2537-57-20 18:46:00 Test Item Value Reference Range Interpretation Comments A/G Ratio (test code = A/G Ratio) 1.1 0.7-1.6 [facility] HospitalAovblndCZPRMNOYPLRS0211-15-95 18:46:00 Test Item Value Reference Range Interpretation Comments Globulin (test code = Globulin) 3.3 2.0-4.0 [facility] HospitalHrzhegaTRZGCTWMAGVC5871-47-91 18:46:00 Test Item Value Reference Range Interpretation Comments eGFR (test code = eGFR) 99 [facility] HospitalJhkpibkPDCUAOLTVDJW5974-62-13 18:46:00 Test Item Value Reference Range Interpretation Comments Calcium Lvl (test code = Calcium Lvl) 9.0 8.5-10.5 [facility] HospitalPzfaslhHNUBTAGGWNPP7926-33-97 18:46:00 Test Item Value Reference Range Interpretation Comments Chloride Lvl (test code = Chloride Lvl) 106 95-109 [facility] HospitalDewkypiTEZINWYMRJIE1590-74-65 18:46:00 Test Item Value Reference Range Interpretation Comments Creatinine Lvl (test code = Creatinine 0.9 0.5-1.4 Lvl) [facility] HospitalTusfgnyAKBYBCNFWYVW0336-27-48 18:46:00 Test Item Value Reference Range Interpretation Comments Potassium Lvl (test code = Potassium 4.2 3.5-5.1 Lvl) [facility] HospitalIogpzqeZBLTUHJRCWPR9997-20-01 18:46:00 Test Item Value Reference Range Interpretation Comments Sodium Lvl (test code = Sodium Lvl) 139 135-145 [facility] HospitalIhcyqyqVCMJYEMSQFKN7900-02-91 18:46:00 Test Item Value Reference Range Interpretation Comments CO2 (test code = CO2) 24 24-32 [facility] HospitalSonhpluXMGNWFQOTUKT8598-70-53 18:46:00 Test Item Value Reference Range Interpretation Comments BUN (test code = BUN) 16 7-22 [facility] HospitalHsefrryHPTIJHYHJEGH5000-56-81 18:46:00 Test Item Value Reference Range Interpretation Comments Glucose Lvl (test code = Glucose Lvl) 141 70-99 [facility] HospitalTzxxribRVORCRHVXPIX1140-03-55 18:46:00 Test Item Value Reference Range Interpretation Comments Albumin Lvl (test code = Albumin Lvl) 3.6 3.5-5.0 [facility] HospitalNtijnnpUYKNOQAYMFXL8947-10-12 18:46:00 Test Item Value Reference Range Interpretation Comments Alk Phos (test code = Alk Phos) 65 39-136 [facility] HospitalKxcwuzuFHLYJDRYYKWU2700-30-61 18:46:00 Test Item Value Reference Range Interpretation Comments Bili Total (test code = Bili Total) 0.3 0.2-1.3 [facility] HospitalAplirjqTHNCSKFJTAYP1987-30-99 18:46:00 Test Item Value Reference Range Interpretation Comments ALT (test code = ALT) 100 See_Comment [Auto mated message] The system which ge nerated this result transmit elizabeth reference range : <=65. The reference range was not used to interpr et this result as margaret l/abnormal. [facility] HospitalNsgxttaZGYIODEMJQSV5946-18-77 18:46:00 Test Item Value Reference Range Interpretation Comments AST (test code = AST) 53 See_Comment [Auto mated message] The system which ge nerated this result transmit elizabeth reference range : <=37. The reference range was not used to interpr et this result as margaret l/abnormal. [facility] HospitalAqsxgfxFKVTOEBLZGZF0254-72-69 18:46:00 Test Item Value Reference Range Interpretation Comments Total Protein (test code = Total 6.9 6.4-8.4 Protein) [facility]lineMgfsfazAYJVPLAYOX7220-56-64 18:46:00 Test Item Value Reference Range Interpretation Comments Eosinophils (test code = 4.2 See_Comment [A utomated message] The Eosinophils) system which ge nerated this result tra nsmitted reference range : <=4.0. The reference r mitra was not used to int erpret this result as normal/abnormal . [facility]lineFywtxhxMUKKKRZOPT5118-73-29 18:46:00 Test Item Value Reference Range Interpretation Comments Segs (test code = Segs) 56.4 45.0-75.0 [facility]lineGvzoevxULOQSSQBZX9653-11-54 18:46:00 Test Item Value Reference Range Interpretation Comments Monocytes (test code = Monocytes) 10.3 2.0-12.0 [facility]lineTysfliwLGZNAFZLSP1612-39-33 18:46:00 Test Item Value Reference Range Interpretation Comments Lymphocytes (test code = Lymphocytes) 28.0 20.0-40.0 [facility]lineWcrmnqfTVHYGJSHPK4335-47-58 18:46:00 Test Item Value Reference Range Interpretation Comments Monocytes # (test code 0.5 See_Comment [Aut omated message] The = Monocytes #) system which generated this result tra nsmitted reference range : <=0.8. The reference r mitra was not used to int erpret this result as normal/abnormal . [facility]lineEouhniyFHIZVCSWYZ0529-53-53 18:46:00 Test Item Value Reference Range Interpretation Comments Basophils (test code = 1.1 See_Comment [Aut omated message] The Basophils) system which ge nerated this result tra nsmitted reference range : <=1.0. The reference r mitra was not used to int erpret this result as normal/abnormal . [facility]lineKawbzchYGMVCIKRRN3626-44-19 18:46:00 Test Item Value Reference Range Interpretation Comments Lymphocytes # (test code = Lymphocytes 1.5 1.0-5.5 #) [facility]lineAgztvdwDAQFUSYWDB0078-09-71 18:46:00 Test Item Value Reference Range Interpretation Comments Segs-Bands # (test code = Segs-Bands #) 2.9 1.5-8.1 [facility]lineJswakoyVNCUSAZKVM1370-88-55 18:46:00 Test Item Value Reference Range Interpretation Comments Eosinophils # (test code 0.2 See_Comment [A utomated message] The = Eosinophils #) system ic h generated this result tra nsmitted reference range : <=0.5. The reference r mitra was not used to int erpret this result as normal/abnormal . [facility]lineIiemzabZPOTCZVFXK8353-50-31 18:46:00 Test Item Value Reference Range Interpretation Comments Basophils # (test code 0.1 See_Comment [Aut omated message] The = Basophils #) system which generated this result tra nsmitted reference range : <=0.2. The reference r mitra was not used to int erpret this result as normal/abnormal . [facility]lineIycslmgSPTEHALWCM8143-99-03 18:46:00 Test Item Value Reference Range Interpretation Comments PT (test code = PT) 11.2 s 12.0-14.7 [facility]lineTrkuqnfXSUGMESAGG6950-23-14 18:46:00 Test Item Value Reference Range Interpretation Comments INR (test code = INR) 0.82 0.85-1.17 [facility]lineZgmfzihWPUJDJJYAT2374-16-04 18:46:00 Test Item Value Reference Range Interpretation Comments PTT (test code = PTT) 28.6 s 22.9-35.8 [facility]lineUqparbsPBSIVBEQKW8983-84-54 18:46:00 Test Item Value Reference Range Interpretation Comments MPV (test code = MPV) 8.1 7.4-10.4 [facility]lineNyyfordZHJFSGZYXE0043-34-36 18:46:00 Test Item Value Reference Range Interpretation Comments Platelet (test code = Platelet) 301 133-450 [facility]lineGmiqrotUSBUHDMZYH2719-66-28 18:46:00 Test Item Value Reference Range Interpretation Comments RDW (test code = RDW) 14.5 11.5-14.5 [facility]lineDcuyssqQVIZJOQUFQ2290-67-97 18:46:00 Test Item Value Reference Range Interpretation Comments RBC (test code = RBC) 4.84 4.70-6.10 [facility]linePcmrubxMMGNTSGLXH4547-60-36 18:46:00 Test Item Value Reference Range Interpretation Comments Hgb (test code = Hgb) 14.4 14.0-18.0 [facility]lineVvkuykrGSYICDYBPX6562-41-63 18:46:00 Test Item Value Reference Range Interpretation Comments WBC (test code = WBC) 5.2 3.7-10.4 [facility]lineQovrxqkSWVESDJVQC9824-48-48 18:46:00 Test Item Value Reference Range Interpretation Comments MCH (test code = MCH) 29.8 pg 27.0-31.0 [facility]lineCzypjtwDNMBCPQUJO1113-03-42 18:46:00 Test Item Value Reference Range Interpretation Comments MCV (test code = MCV) 92.0 80.0-94.0 [facility]lineFjkuwnfUZTQVTRAIU9851-43-34 18:46:00 Test Item Value Reference Range Interpretation Comments Hct (test code = Hct) 44.5 42.0-54.0 [facility] BbizqcoEBLGOHNOVI5165-94-95 18:46:00 Test Item Value Reference Range Interpretation Comments MCHC (test code = MCHC) 32.4 32.0-36.0 [facility] DhugwkoDDLKHXNAZC4635-85-97 18:46:00 Test Item Value Reference Range Interpretation Comments Kan[place]-Hep C Ab (test Negative *NA*(07/22/14 code = Kan[place]-Hep C 1:46 PM) Ab) [facility] AND [id number] 18:46:00 Test Item Value Reference Range Interpretation Comments UA Urobilinogen (test code = UA <=1.0 mg/dL 0.1-1.0 Urobilinogen) [facility] AND [id number] 18:46:00 Test Item Value Reference Range Interpretation Comments UA Sq Epi (test code = UA Sq Epi) None Seen [facility] AND [id number] 18:46:00 Test Item Value Reference Range Interpretation Comments UA Leuk Est (test Negative (07/22/14 1:46 code = UA Leuk Est) PM) [facility] AND [id number] 18:46:00 Test Item Value Reference Range Interpretation Comments UA Nitrite (test code Negative (07/22/14 1:46 = UA Nitrite) PM) [facility] AND [id number] 18:46:00 Test Item Value Reference Range Interpretation Comments UA Blood (test code = Negative (07/22/14 1:46 UA Blood) PM) [facility] AND [id number] 18:46:00 Test Item Value Reference Range Interpretation Comments UA Ketones (test code = UA Negative mg/dL Ketones) [facility] AND [id number] 18:46:00 Test Item Value Reference Range Interpretation Comments UA Bili (test code = Negative *NA*(07/22/14 UA Bili) 1:46 PM) [facility] AND [id number] 18:46:00 Test Item Value Reference Range Interpretation Comments UA Bacteria (test code = UA Occasional /HPF Bacteria) [facility] AND [id number] 18:46:00 Test Item Value Reference Range Interpretation Comments UA RBC (test code = no gt See_Comment [Automa elizabeth message] The UA RBC) system which ge nerated this result transmit elizabeth reference range : <=2. The reference range was not used to interpr et this result as margaret l/abnormal. [facility] AND [id number] 18:46:00 Test Item Value Reference Range Interpretation Comments UA WBC (test code = 1 See_Comment [Automa elizabeth message] The UA WBC) system which ge nerated this result transmit elizabeth reference range : <=5. The reference range was not used to interpr et this result as margaret l/abnormal. [facility] [id number] 18:46:00 Test Item Value Reference Range Interpretation Comments UA Glucose (test code = UA Glucose) 30 mg/dL [facility] AND [id number] 18:46:00 Test Item Value Reference Range Interpretation Comments UA Protein (test code = UA Negative mg/dL Protein) [facility] AND [id number] 18:46:00 Test Item Value Reference Range Interpretation Comments UA pH (test code = UA pH) 6.5 5.0-8.[address] [facility] AND [id number] 18:46:00 Test Item Value Reference Range Interpretation Comments UA Turbidity (test code = Clear (07/22/14 1:46 UA Turbidity) PM) [facility] AND [id number] 18:46:00 Test Item Value Reference Range Interpretation Comments UA Spec Grav (test code = UA Spec Grav) 1.[address] [facility] AND [id number] 18:46:00 Test Item Value Reference Range Interpretation Comments UA Color (test code = Light Yellow UA Color) *NA*(07/22/14 1:46 PM) [facility]annCHEM [id number] 18:46:00 Test Item Value Reference Range Interpretation Comments Magnesium Lvl (test code = Magnesium 1.8 1.8-2.4 Lvl) [facility] HospitalJenpqclPKHZHHOGDONH5418-00-73 18:46:00 Test Item Value Reference Range Interpretation Comments AGAP (test code = AGAP) 13.2 10.0-20.0 [facility] VdjlehoYWASYAWMCDHM5567-56-32 18:46:00 Test Item Value Reference Range Interpretation Comments B/C Ratio (test code = B/C Ratio) 18 6-25 [facility] HospitalNvmabmvUUXGFTFAGPPM7900-08-19 18:46:00 Test Item Value Reference Range Interpretation Comments A/G Ratio (test code = A/G Ratio) 1.1 0.7-1.6 [facility] HospitalLiyysvuURQKUJPYOQYZ7275-82-95 18:46:00 Test Item Value Reference Range Interpretation Comments Globulin (test code = Globulin) 3.3 2.0-4.0 [facility] HospitalVaulpuvGQFGXWVUEPWE1267-78-73 18:46:00 Test Item Value Reference Range Interpretation Comments eGFR (test code = eGFR) 99 [facility] HospitalHkgrfokXCVEUTCOUKVJ5999-80-81 18:46:00 Test Item Value Reference Range Interpretation Comments Calcium Lvl (test code = Calcium Lvl) 9.0 8.5-10.5 [facility] HospitalJkbuknmQCRJUSCMNLJS0705-93-03 18:46:00 Test Item Value Reference Range Interpretation Comments Chloride Lvl (test code = Chloride Lvl) 106 95-109 [facility] HospitalDymsroaHXJUKEFTSYPC6569-03-47 18:46:00 Test Item Value Reference Range Interpretation Comments Creatinine Lvl (test code = Creatinine 0.9 0.5-1.4 Lvl) [facility] HospitalZvafayjASLWPAHSTJMF8588-96-37 18:46:00 Test Item Value Reference Range Interpretation Comments Potassium Lvl (test code = Potassium 4.2 3.5-5.1 Lvl) [facility] HospitalPbxujutQGZEPKXSWAIF3374-01-30 18:46:00 Test Item Value Reference Range Interpretation Comments Sodium Lvl (test code = Sodium Lvl) 139 135-145 [facility] HospitalCjnkhyxWRWTZNJRWLKB9663-02-89 18:46:00 Test Item Value Reference Range Interpretation Comments CO2 (test code = CO2) 24 24-32 [facility] HospitalTngqygcPCSMLNHMYYPM0816-34-09 18:46:00 Test Item Value Reference Range Interpretation Comments BUN (test code = BUN) 16 7-22 [facility] HospitalXxnbjygEKPZRBURBBMS5076-28-93 18:46:00 Test Item Value Reference Range Interpretation Comments Glucose Lvl (test code = Glucose Lvl) 141 70-99 [facility] [facility]ryJAAFHNLIIIVW0723-12-74 18:46:00 Test Item Value Reference Range Interpretation Comments Albumin Lvl (test code = Albumin Lvl) 3.6 3.5-5.0 [facility] HospitalNzdrnjhDOBINMOPDWAE1219-64-88 18:46:00 Test Item Value Reference Range Interpretation Comments Alk Phos (test code = Alk Phos) 65 39-136 [facility] HospitalRnwqetkLBBVSPLHYITA6541-35-17 18:46:00 Test Item Value Reference Range Interpretation Comments Bili Total (test code = Bili Total) 0.3 0.2-1.3 [facility] HospitalVsjzergUMJHSOPGOWAU6085-75-20 18:46:00 Test Item Value Reference Range Interpretation Comments ALT (test code = ALT) 100 See_Comment [Auto mated message] The system which ge nerated this result transmit elizabeth reference range : <=65. The reference range was not used to interpr et this result as margaret l/abnormal. [facility] HospitalSponnmcAQSOHKNXKLQO4241-10-62 18:46:00 Test Item Value Reference Range Interpretation Comments AST (test code = AST) 53 See_Comment [Auto mated message] The system which ge nerated this result transmit elizabeth reference range : <=37. The reference range was not used to interpr et this result as margaret l/abnormal. [facility] HospitalQrwqijmKLDHDQOCQUCF2254-04-69 18:46:00 Test Item Value Reference Range Interpretation Comments Total Protein (test code = Total 6.9 6.4-8.4 Protein) [facility]lineDwmrwagASTXYOANKF2922-16-19 18:46:00 Test Item Value Reference Range Interpretation Comments Eosinophils (test code = 4.2 See_Comment [A utomated message] The Eosinophils) system which ge nerated this result tra nsmitted reference range : <=4.0. The reference r mitra was not used to int erpret this result as normal/abnormal . [facility]lineDfcuyzkHSCEIHIDIX6023-93-25 18:46:00 Test Item Value Reference Range Interpretation Comments Segs (test code = Segs) 56.4 45.0-75.0 [facility]lineFziaewyCPFXMECYVN3410-01-34 18:46:00 Test Item Value Reference Range Interpretation Comments Monocytes (test code = Monocytes) 10.3 2.0-12.0 [facility]lineZlnbqoiEVRZTSTWXW3315-92-04 18:46:00 Test Item Value Reference Range Interpretation Comments Lymphocytes (test code = Lymphocytes) 28.0 20.0-40.0 [facility]lineJbhzcovQQJFQKGAAL5846-62-33 18:46:00 Test Item Value Reference Range Interpretation Comments Monocytes # (test code 0.5 See_Comment [Aut omated message] The = Monocytes #) system which generated this result tra nsmitted reference range : <=0.8. The reference r mitra was not used to int erpret this result as normal/abnormal . [facility] ShorelineRztagerFYQCPJEHEM8599-23-80 18:46:00 Test Item Value Reference Range Interpretation Comments Basophils (test code = 1.1 See_Comment [Aut omated message] The Basophils) system which ge nerated this result tra nsmitted reference range : <=1.0. The reference r mitra was not used to int erpret this result as normal/abnormal . [facility]lineOaptageUJVHSSPYAT2245-00-80 18:46:00 Test Item Value Reference Range Interpretation Comments Lymphocytes # (test code = Lymphocytes 1.5 1.0-5.5 #) [facility] ShorelineLzhctftORBNIAIBJE3299-04-31 18:46:00 Test Item Value Reference Range Interpretation Comments Segs-Bands # (test code = Segs-Bands #) 2.9 1.5-8.1 [facility]lineOsnwejdXICDWOHDXE3472-60-23 18:46:00 Test Item Value Reference Range Interpretation Comments Eosinophils # (test code 0.2 See_Comment [A utomated message] The = Eosinophils #) system whic h generated this result tra nsmitted reference range : <=0.5. The reference r mitra was not used to int erpret this result as normal/abnormal . [facility]lineWhgdqhcSYPALPAMGL7370-25-88 18:46:00 Test Item Value Reference Range Interpretation Comments Basophils # (test code 0.1 See_Comment [Aut omated message] The = Basophils #) system which generated this result tra nsmitted reference range : <=0.2. The reference r mitra was not used to int erpret this result as normal/abnormal . [facility]lineKntbcazFETJMKVQQT0483-79-66 18:46:00 Test Item Value Reference Range Interpretation Comments PT (test code = PT) 11.2 s 12.0-14.7 [facility]lineQvoeucyAYJYQPOFWI5300-94-31 18:46:00 Test Item Value Reference Range Interpretation Comments INR (test code = INR) 0.82 0.85-1.17 [facility]lineWnvicmcCEFPZAVWLA1596-51-61 18:46:00 Test Item Value Reference Range Interpretation Comments PTT (test code = PTT) 28.6 s 22.9-35.8 [facility]KdjvuqqYHPENJXSYP2152-14-16 18:46:00 Test Item Value Reference Range Interpretation Comments MPV (test code = MPV) 8.1 7.4-10.4 [facility] CenterIxargdnQHMKBYYKAT2962-64-85 18:46:00 Test Item Value Reference Range Interpretation Comments Platelet (test code = Platelet) 301 133-450 [facility]jupfouQPANYOGBQQ8058-59-13 18:46:00 Test Item Value Reference Range Interpretation Comments RDW (test code = RDW) 14.5 11.5-14.5 [facility]OjvzaigDTHWXVMJMW6580-98-86 18:46:00 Test Item Value Reference Range Interpretation Comments RBC (test code = RBC) 4.84 4.70-6.10 [facility]KzdcqyeCXSFOLNUOA0907-66-59 18:46:00 Test Item Value Reference Range Interpretation Comments Hgb (test code = Hgb) 14.4 14.0-18.0 [facility] CenterZazbkuvOQYZVNUORE7465-04-11 18:46:00 Test Item Value Reference Range Interpretation Comments WBC (test code = WBC) 5.2 3.7-10.4 [facility] CenterZfgcpocFCGXDDWEMR6048-56-61 18:46:00 Test Item Value Reference Range Interpretation Comments MCH (test code = MCH) 29.8 pg 27.0-31.0 [facility] CenterYmbilrkMIBNZHXNTG8412-81-46 18:46:00 Test Item Value Reference Range Interpretation Comments MCV (test code = MCV) 92.0 80.0-94.0 [facility] CenterNowbhwgAUWCBRPTPQ1019-51-49 18:46:00 Test Item Value Reference Range Interpretation Comments Hct (test code = Hct) 44.5 42.0-54.0 [facility] CenterSbimdnkLWOZOMFGTJ1509-47-33 18:46:00 Test Item Value Reference Range Interpretation Comments MCHC (test code = MCHC) 32.4 32.0-36.0 [facility] CenterDjjfgvtCUMORYQUER9318-68-61 18:46:00 Test Item Value Reference Range Interpretation Comments Kanab-Hep C Ab (test Negative *NA*(07/22/14 code = Kanab-Hep C 1:46 PM) Ab) [facility] AND [id number] 18:46:00 Test Item Value Reference Range Interpretation Comments UA Urobilinogen (test code = UA <=1.0 mg/dL 0.1-1.0 Urobilinogen) [facility] AND [id number] 18:46:00 Test Item Value Reference Range Interpretation Comments UA Sq Epi (test code = UA Sq Epi) None Seen [facility] AND [id number] 18:46:00 Test Item Value Reference Range Interpretation Comments UA Leuk Est (test Negative (07/22/14 1:46 code = UA Leuk Est) PM) [facility] AND [id number] 18:46:00 Test Item Value Reference Range Interpretation Comments UA Nitrite (test code Negative (07/22/14 1:46 = UA Nitrite) PM) [facility] AND [id number] 18:46:00 Test Item Value Reference Range Interpretation Comments UA Blood (test code = Negative (07/22/14 1:46 UA Blood) PM) [facility] AND [id number] 18:46:00 Test Item Value Reference Range Interpretation Comments UA Ketones (test code = UA Negative mg/dL Ketones) [facility] AND [id number] 18:46:00 Test Item Value Reference Range Interpretation Comments UA Bili (test code = Negative *NA*(07/22/14 UA Bili) 1:46 PM) [facility] AND [id number] 18:46:00 Test Item Value Reference Range Interpretation Comments UA Bacteria (test code = UA Occasional /HPF Bacteria) [facility] AND [id number] 18:46:00 Test Item Value Reference Range Interpretation Comments UA RBC (test code = no gt See_Comment [Automa elizabeth message] The UA RBC) system which ge nerated this result transmit elizabeth reference range : <=2. The reference range was not used to interpr et this result as margaret l/abnormal. [facility] AND [id number] 18:46:00 Test Item Value Reference Range Interpretation Comments UA WBC (test code = 1 See_Comment [Automa elizabeth message] The UA WBC) system which ge nerated this result transmit elizabeth reference range : <=5. The reference range was not used to interpr et this result as margaret l/abnormal. [facility] AND [id number] 18:46:00 Test Item Value Reference Range Interpretation Comments UA Glucose (test code = UA Glucose) 30 mg/dL [facility] AND [id number] 18:46:00 Test Item Value Reference Range Interpretation Comments UA Protein (test code = UA Negative mg/dL Protein) [facility] AND [id number] 18:46:00 Test Item Value Reference Range Interpretation Comments UA pH (test code = UA pH) 6.5 5.0-8.[address] [facility] AND [id number] 18:46:00 Test Item Value Reference Range Interpretation Comments UA Turbidity (test code = Clear (07/22/14 1:46 UA Turbidity) PM) [facility] AND [id number] 18:46:00 Test Item Value Reference Range Interpretation Comments UA Spec Grav (test code = UA Spec Grav) 1.[address] [facility] AND [id number] 18:46:00 Test Item Value Reference Range Interpretation Comments UA Color (test code = Light Yellow UA Color) *NA*(07/22/14 1:46 PM) [facility] [id number] 18:46:00 Test Item Value Reference Range Interpretation Comments Magnesium Lvl (test code = Magnesium 1.8 1.8-2.4 Lvl) [facility] HospitalEskimcsMBTVHDHXFGBZ3871-56-97 18:46:00 Test Item Value Reference Range Interpretation Comments AGAP (test code = AGAP) 13.2 10.0-20.0 [facility] HospitalTfhcufdXEVGDRXYEFDE7003-05-97 18:46:00 Test Item Value Reference Range Interpretation Comments B/C Ratio (test code = B/C Ratio) 18 6-25 [facility] HospitalRmzihkaLASIZUHMKFSN3121-09-63 18:46:00 Test Item Value Reference Range Interpretation Comments A/G Ratio (test code = A/G Ratio) 1.1 0.7-1.6 [facility] HospitalTrkfmiaHOGCZBJYCUNL1931-17-21 18:46:00 Test Item Value Reference Range Interpretation Comments Globulin (test code = Globulin) 3.3 2.0-4.0 [facility] HospitalAsbncwwXFSVHDSZOLZQ1373-52-69 18:46:00 Test Item Value Reference Range Interpretation Comments eGFR (test code = eGFR) 99 [facility] HospitalBkzwxkgXBPOWSUAOQHR2203-85-53 18:46:00 Test Item Value Reference Range Interpretation Comments Calcium Lvl (test code = Calcium Lvl) 9.0 8.5-10.5 [facility] HospitalEnjiltsOQFJSTMIDNFE6030-21-47 18:46:00 Test Item Value Reference Range Interpretation Comments Chloride Lvl (test code = Chloride Lvl) 106 95-109 [facility] HospitalXqcjvuwABYKMTCZWDSV0287-64-55 18:46:00 Test Item Value Reference Range Interpretation Comments Creatinine Lvl (test code = Creatinine 0.9 0.5-1.4 Lvl) [facility] HospitalDmtvqgjMNUFGQCEQZBP6633-41-80 18:46:00 Test Item Value Reference Range Interpretation Comments Potassium Lvl (test code = Potassium 4.2 3.5-5.1 Lvl) [facility] HospitalIwfemvrJBPPEAFRIDNI5463-18-10 18:46:00 Test Item Value Reference Range Interpretation Comments Sodium Lvl (test code = Sodium Lvl) 139 135-145 [facility] HospitalNlgurwkYWIIUAONAPMZ4908-33-79 18:46:00 Test Item Value Reference Range Interpretation Comments CO2 (test code = CO2) 24 24-32 [facility] HospitalPraccxkATAALZWKRCHV1784-29-83 18:46:00 Test Item Value Reference Range Interpretation Comments BUN (test code = BUN) 16 7-22 [facility] HospitalMzlwzvsIOPFSXJWSPHN5678-80-08 18:46:00 Test Item Value Reference Range Interpretation Comments Glucose Lvl (test code = Glucose Lvl) 141 70-99 [facility] HospitalEpowgvlAECSJGDVMFYI0994-91-14 18:46:00 Test Item Value Reference Range Interpretation Comments Albumin Lvl (test code = Albumin Lvl) 3.6 3.5-5.0 [facility] HospitalGisfdzqQFEJXLVHMKQB9050-23-43 18:46:00 Test Item Value Reference Range Interpretation Comments Alk Phos (test code = Alk Phos) 65 39-136 [facility] HospitalUqshxsmPNIZULRNWFGG6382-57-66 18:46:00 Test Item Value Reference Range Interpretation Comments Bili Total (test code = Bili Total) 0.3 0.2-1.3 [facility] HospitalSihtttwLBCUGEPEQNBJ6085-24-16 18:46:00 Test Item Value Reference Range Interpretation Comments ALT (test code = ALT) 100 See_Comment [Auto mated message] The system which ge nerated this result transmit elizabeth reference range : <=65. The reference range was not used to interpr et this result as margaret l/abnormal. [facility] HospitalJcdntomVBFOJNUHFWPH8681-43-04 18:46:00 Test Item Value Reference Range Interpretation Comments AST (test code = AST) 53 See_Comment [Auto mated message] The system which ge nerated this result transmit elizabeth reference range : <=37. The reference range was not used to interpr et this result as margaret l/abnormal. [facility] HospitalDsqmqoeDWZPLZOPHLEA1207-17-68 18:46:00 Test Item Value Reference Range Interpretation Comments Total Protein (test code = Total 6.9 6.4-8.4 Protein) [facility]lineUglgtneRWUXELYAVK2322-39-45 18:46:00 Test Item Value Reference Range Interpretation Comments Eosinophils (test code = 4.2 See_Comment [A utomated message] The Eosinophils) system which ge nerated this result tra nsmitted reference range : <=4.0. The reference r mitra was not used to int erpret this result as normal/abnormal . [facility]lineLqemktjEVNMECFZVM9055-54-84 18:46:00 Test Item Value Reference Range Interpretation Comments Segs (test code = Segs) 56.4 45.0-75.0 [facility]lineByddswrLXKMHTUKQC0738-97-00 18:46:00 Test Item Value Reference Range Interpretation Comments Monocytes (test code = Monocytes) 10.3 2.0-12.0 [facility]lineEtnuhwbJNHYNPYTCK5171-30-55 18:46:00 Test Item Value Reference Range Interpretation Comments Lymphocytes (test code = Lymphocytes) 28.0 20.0-40.0 [facility]lineQxtquywNZYGLZELCN5768-47-87 18:46:00 Test Item Value Reference Range Interpretation Comments Monocytes # (test code 0.5 See_Comment [Aut omated message] The = Monocytes #) system which generated this result tra nsmitted reference range : <=0.8. The reference r mitra was not used to int erpret this result as normal/abnormal . [facility]lineSmzppzuKCUJYDBJMC9169-38-65 18:46:00 Test Item Value Reference Range Interpretation Comments Basophils (test code = 1.1 See_Comment [Aut omated message] The Basophils) system which ge nerated this result tra nsmitted reference range : <=1.0. The reference r mitra was not used to int erpret this result as normal/abnormal . [facility]lineTuppsqrXDHWAHPONC1418-79-06 18:46:00 Test Item Value Reference Range Interpretation Comments Lymphocytes # (test code = Lymphocytes 1.5 1.0-5.5 #) [facility]lineSqiniflWZDHTBVQZL7764-88-23 18:46:00 Test Item Value Reference Range Interpretation Comments Segs-Bands # (test code = Segs-Bands #) 2.9 1.5-8.1 [facility]lineDbqqlbrWJUGUROWJK3974-02-53 18:46:00 Test Item Value Reference Range Interpretation Comments Eosinophils # (test code 0.2 See_Comment [A utomated message] The = Eosinophils #) system whic h generated this result tra nsmitted reference range : <=0.5. The reference r imtra was not used to int erpret this result as normal/abnormal . [facility]lineOpzxtzeKBWFJYTKBG8520-38-54 18:46:00 Test Item Value Reference Range Interpretation Comments Basophils # (test code 0.1 See_Comment [Aut omated message] The = Basophils #) system which generated this result tra nsmitted reference range : <=0.2. The reference r mitra was not used to int erpret this result as normal/abnormal . [facility]lineOhvroqsRQPZETAVVD9926-21-53 18:46:00 Test Item Value Reference Range Interpretation Comments PT (test code = PT) 11.2 s 12.0-14.7 [facility]lineDogtacuQBBPGZUELH5031-18-09 18:46:00 Test Item Value Reference Range Interpretation Comments INR (test code = INR) 0.82 0.85-1.17 [facility] ShorelineOphiobaAZALEAXUUF4794-59-92 18:46:00 Test Item Value Reference Range Interpretation Comments PTT (test code = PTT) 28.6 s 22.9-35.8 [facility]lineXlhrtvzWXBGIIQOZH8522-52-79 18:46:00 Test Item Value Reference Range Interpretation Comments MPV (test code = MPV) 8.1 7.4-10.4 [facility]lineBqriofkYIEGTTAFVJ1399-34-74 18:46:00 Test Item Value Reference Range Interpretation Comments Platelet (test code = Platelet) 301 133-450 [facility]lineRyvgedqGJJCFSDSNS1405-35-20 18:46:00 Test Item Value Reference Range Interpretation Comments RDW (test code = RDW) 14.5 11.5-14.5 [facility]lineBqcyuxiPEBESKRNMI3710-08-06 18:46:00 Test Item Value Reference Range Interpretation Comments RBC (test code = RBC) 4.84 4.70-6.10 [facility]BxaiweyKOINYCFGSW8361-35-69 18:46:00 Test Item Value Reference Range Interpretation Comments Hgb (test code = Hgb) 14.4 14.0-18.0 [facility] HospitalIenrvwhKJOHPCOWXW0535-72-62 18:46:00 Test Item Value Reference Range Interpretation Comments WBC (test code = WBC) 5.2 3.7-10.4 [facility]lineCdtrjzmUMDKSPWQUU3082-38-50 18:46:00 Test Item Value Reference Range Interpretation Comments MCH (test code = MCH) 29.8 pg 27.0-31.0 [facility]lineJrvtiigKAAUVHWKBP6383-10-77 18:46:00 Test Item Value Reference Range Interpretation Comments MCV (test code = MCV) 92.0 80.0-94.0 [facility]lineUxjgpwvKPVLLZLDRZ0900-77-79 18:46:00 Test Item Value Reference Range Interpretation Comments Hct (test code = Hct) 44.5 42.0-54.0 [facility] HospitalJonadlcYRZDGEJCUJ6375-98-12 18:46:00 Test Item Value Reference Range Interpretation Comments MCHC (test code = MCHC) 32.4 32.0-36.0 [facility] CenterSbrdrwaHCCBVZFVTJ8677-41-76 18:46:00 Test Item Value Reference Range Interpretation Comments [place]-Hep C Ab (test Negative *NA*(07/22/14 code = [place]-Hep C 1:46 PM) Ab) [facility] AND [id number] 18:46:00 Test Item Value Reference Range Interpretation Comments UA Urobilinogen (test code = UA <=1.0 mg/dL 0.1-1.0 Urobilinogen) [facility] AND [id number] 18:46:00 Test Item Value Reference Range Interpretation Comments UA Sq Epi (test code = UA Sq Epi) None Seen [facility] AND [id number] 18:46:00 Test Item Value Reference Range Interpretation Comments UA Leuk Est (test Negative (07/22/14 1:46 code = UA Leuk Est) PM) [facility] AND [id number] 18:46:00 Test Item Value Reference Range Interpretation Comments UA Nitrite (test code Negative (07/22/14 1:46 = UA Nitrite) PM) [facility] AND [id number] 18:46:00 Test Item Value Reference Range Interpretation Comments UA Blood (test code = Negative (07/22/14 1:46 UA Blood) PM) [facility] AND [id number] 18:46:00 Test Item Value Reference Range Interpretation Comments UA Ketones (test code = UA Negative mg/dL Ketones) [facility] AND [id number] 18:46:00 Test Item Value Reference Range Interpretation Comments UA Bili (test code = Negative *NA*(07/22/14 UA Bili) 1:46 PM) [facility] AND [id number] 18:46:00 Test Item Value Reference Range Interpretation Comments UA Bacteria (test code = UA Occasional /HPF Bacteria) [facility] AND [id number] 18:46:00 Test Item Value Reference Range Interpretation Comments UA RBC (test code = no gt See_Comment [Automa elizabeth message] The UA RBC) system which ge nerated this result transmit elizabeth reference range : <=2. The reference range was not used to interpr et this result as margaret l/abnormal. [facility] AND [id number] 18:46:00 Test Item Value Reference Range Interpretation Comments UA WBC (test code = 1 See_Comment [Automa elizabeth message] The UA WBC) system which ge nerated this result transmit elizabeth reference range : <=5. The reference range was not used to interpr et this result as margaret l/abnormal. [facility] AND [id number] 18:46:00 Test Item Value Reference Range Interpretation Comments UA Glucose (test code = UA Glucose) 30 mg/dL [facility] AND [id number] 18:46:00 Test Item Value Reference Range Interpretation Comments UA Protein (test code = UA Negative mg/dL Protein) [facility] AND [id number] 18:46:00 Test Item Value Reference Range Interpretation Comments UA pH (test code = UA pH) 6.5 5.0-8.[address] [facility] AND [id number] 18:46:00 Test Item Value Reference Range Interpretation Comments UA Turbidity (test code = Clear (07/22/14 1:46 UA Turbidity) PM) [facility] [id number] 18:46:00 Test Item Value Reference Range Interpretation Comments UA Spec Grav (test code = UA Spec Grav) 1.010 [facility] [id number] 18:46:00 Test Item Value Reference Range Interpretation Comments UA Color (test code = Light Yellow UA Color) *NA*(07/22/14 1:46 PM) [facility]annCHEM [id number] 18:46:00 Test Item Value Reference Range Interpretation Comments Magnesium Lvl (test code = Magnesium 1.8 1.8-2.4 Lvl) [facility] HospitalRyrtjgcGFOQCLQQLTMN4986-19-04 18:46:00 Test Item Value Reference Range Interpretation Comments AGAP (test code = AGAP) 13.2 10.0-20.0 [facility] HospitalFziwvyhMSCSJMKJSMPZ8931-15-09 18:46:00 Test Item Value Reference Range Interpretation Comments B/C Ratio (test code = B/C Ratio) 18 6-25 [facility] HospitalMbytwmeDZQMUKXXYJOM0250-45-40 18:46:00 Test Item Value Reference Range Interpretation Comments A/G Ratio (test code = A/G Ratio) 1.1 0.7-1.6 [facility]XlxxlemPGYQUYEGELEF4765-28-30 18:46:00 Test Item Value Reference Range Interpretation Comments Globulin (test code = Globulin) 3.3 2.0-4.0 [facility] CenterCdnrelxIAXMWKXSATSW6670-41-79 18:46:00 Test Item Value Reference Range Interpretation Comments eGFR (test code = eGFR) 99 [facility] HospitalUckdcaqETWMSDWMEJYT7344-28-57 18:46:00 Test Item Value Reference Range Interpretation Comments Calcium Lvl (test code = Calcium Lvl) 9.0 8.5-10.5 [facility] HospitalCufacoyYMLHLPQRYVCT9838-47-70 18:46:00 Test Item Value Reference Range Interpretation Comments Chloride Lvl (test code = Chloride Lvl) 106 95-109 [facility] HospitalWmynnkrHVIBDRPJUBUK3339-36-83 18:46:00 Test Item Value Reference Range Interpretation Comments Creatinine Lvl (test code = Creatinine 0.9 0.5-1.4 Lvl) [facility] HospitalDwhnxpzRQUVYWKRQKFJ1396-95-35 18:46:00 Test Item Value Reference Range Interpretation Comments Potassium Lvl (test code = Potassium 4.2 3.5-5.1 Lvl) [facility] HospitalJcsyexcXOGPFQIOTCWX5719-59-36 18:46:00 Test Item Value Reference Range Interpretation Comments Sodium Lvl (test code = Sodium Lvl) 139 135-145 [facility] HospitalPhrydvqRNCDSPKILRVS4758-01-90 18:46:00 Test Item Value Reference Range Interpretation Comments CO2 (test code = CO2) 24 24-32 [facility] HospitalNpaydgfDWJUMSIESUWS0490-67-09 18:46:00 Test Item Value Reference Range Interpretation Comments BUN (test code = BUN) 16 7-22 [facility] HospitalLxnfwywKFAZAJMMETWW8243-37-10 18:46:00 Test Item Value Reference Range Interpretation Comments Glucose Lvl (test code = Glucose Lvl) 141 70-99 [facility] HospitalZxnexzyNETWPVZJBUGP3372-65-88 18:46:00 Test Item Value Reference Range Interpretation Comments Albumin Lvl (test code = Albumin Lvl) 3.6 3.5-5.0 [facility] HospitalIhogkreSCVUFSKNWPAH8802-03-51 18:46:00 Test Item Value Reference Range Interpretation Comments Alk Phos (test code = Alk Phos) 65 39-136 [facility] HospitalTvzxoutKOBLLNCBDOEM7005-10-55 18:46:00 Test Item Value Reference Range Interpretation Comments Bili Total (test code = Bili Total) 0.3 0.2-1.3 [facility] HospitalEyhjluqQTKOTLXXGRMX7145-59-26 18:46:00 Test Item Value Reference Range Interpretation Comments ALT (test code = ALT) 100 See_Comment [Auto mated message] The system which ge nerated this result transmit elizabeth reference range : <=65. The reference range was not used to interpr et this result as margaret l/abnormal. [facility] HospitalGgqghvkYKXGHGOGZBDO3303-98-42 18:46:00 Test Item Value Reference Range Interpretation Comments AST (test code = AST) 53 See_Comment [Auto mated message] The system which ge nerated this result transmit elizabeth reference range : <=37. The reference range was not used to interpr et this result as margaret l/abnormal. [facility] HospitalYdofjjdZXXGWTUFJWUJ5217-18-44 18:46:00 Test Item Value Reference Range Interpretation Comments Total Protein (test code = Total 6.9 6.4-8.4 Protein) [facility] CenterDtvbtmlWIEXLXAWLR7216-72-62 18:46:00 Test Item Value Reference Range Interpretation Comments Eosinophils (test code = 4.2 See_Comment [A utomated message] The Eosinophils) system which ge nerated this result tra nsmitted reference range : <=4.0. The reference r mitra was not used to int erpret this result as normal/abnormal . [facility]lineWfewxpbWSLTBRQCDW5720-03-76 18:46:00 Test Item Value Reference Range Interpretation Comments Segs (test code = Segs) 56.4 45.0-75.0 [facility]lineEbksoboRXEYXFWCQM3383-43-44 18:46:00 Test Item Value Reference Range Interpretation Comments Monocytes (test code = Monocytes) 10.3 2.0-12.0 [facility]lineTqrpialDZBPDWYWJZ7022-27-56 18:46:00 Test Item Value Reference Range Interpretation Comments Lymphocytes (test code = Lymphocytes) 28.0 20.0-40.0 [facility]lineEzfedbrRDDYLYGLFL5909-61-44 18:46:00 Test Item Value Reference Range Interpretation Comments Monocytes # (test code 0.5 See_Comment [Aut omated message] The = Monocytes #) system which generated this result tra nsmitted reference range : <=0.8. The reference r mitra was not used to int erpret this result as normal/abnormal . [facility]lineElkrxufEXIBCTTMKX2945-34-20 18:46:00 Test Item Value Reference Range Interpretation Comments Basophils (test code = 1.1 See_Comment [Aut omated message] The Basophils) system which ge nerated this result tra nsmitted reference range : <=1.0. The reference r mitra was not used to int erpret this result as normal/abnormal . [facility]lineAhfuxpfAOMKHIHQXG0413-26-36 18:46:00 Test Item Value Reference Range Interpretation Comments Lymphocytes # (test code = Lymphocytes 1.5 1.0-5.5 #) [facility]lineUqsamrvUYUEOJCKEQ6521-79-07 18:46:00 Test Item Value Reference Range Interpretation Comments Segs-Bands # (test code = Segs-Bands #) 2.9 1.5-8.1 [facility]lineJkqdovyPBCUDOOWIF6002-00-64 18:46:00 Test Item Value Reference Range Interpretation Comments Eosinophils # (test code 0.2 See_Comment [A utomated message] The = Eosinophils #) system whic h generated this result tra nsmitted reference range : <=0.5. The reference r mitra was not used to int erpret this result as normal/abnormal . [facility]lineCxepsgtDQTOIXYQHJ5456-48-77 18:46:00 Test Item Value Reference Range Interpretation Comments Basophils # (test code 0.1 See_Comment [Aut omated message] The = Basophils #) system which generated this result tra nsmitted reference range : <=0.2. The reference r mitra was not used to int erpret this result as normal/abnormal . [facility]lineQnwxbewAOIWRNYZFO0305-53-65 18:46:00 Test Item Value Reference Range Interpretation Comments PT (test code = PT) 11.2 s 12.0-14.7 [facility]lineFdwmpvsZLIYWSYETK5256-23-65 18:46:00 Test Item Value Reference Range Interpretation Comments INR (test code = INR) 0.82 0.85-1.17 [facility]lineTrfazqjBUDIXZDCSP9497-46-47 18:46:00 Test Item Value Reference Range Interpretation Comments PTT (test code = PTT) 28.6 s 22.9-35.8 [facility]lineYldrjzfWAAGYGNGLJ6828-03-72 18:46:00 Test Item Value Reference Range Interpretation Comments MPV (test code = MPV) 8.1 7.4-10.4 [facility]lineTaejimfOMPZCBWHKW9867-61-29 18:46:00 Test Item Value Reference Range Interpretation Comments Platelet (test code = Platelet) 301 133-450 [facility]linePsehcmkEXXCPMPSOW4526-31-08 18:46:00 Test Item Value Reference Range Interpretation Comments RDW (test code = RDW) 14.5 11.5-14.5 [facility]lineMzgbqblOCAIFJSIYU4624-24-19 18:46:00 Test Item Value Reference Range Interpretation Comments RBC (test code = RBC) 4.84 4.70-6.10 [facility]lineXszelhjGRLZKXHWGX3325-05-20 18:46:00 Test Item Value Reference Range Interpretation Comments Hgb (test code = Hgb) 14.4 14.0-18.0 [facility]lineYhrjyahEXPJPSEWSC0734-05-48 18:46:00 Test Item Value Reference Range Interpretation Comments WBC (test code = WBC) 5.2 3.7-10.4 [facility]lineJrswystOILVVFTQLZ7523-32-77 18:46:00 Test Item Value Reference Range Interpretation Comments MCH (test code = MCH) 29.8 pg 27.0-31.0 [facility] DxsmjioBLGFQEUXUJ4140-56-85 18:46:00 Test Item Value Reference Range Interpretation Comments MCV (test code = MCV) 92.0 80.0-94.0 [facility] NmkyeiuDCZANCYNPX9604-42-98 18:46:00 Test Item Value Reference Range Interpretation Comments Hct (test code = Hct) 44.5 42.0-54.0 [facility] ZhmyvolXJONQPZTJB7218-70-45 18:46:00 Test Item Value Reference Range Interpretation Comments MCHC (test code = MCHC) 32.4 32.0-36.0 [facility] IftfuxcHKLKZGKWPF5887-99-05 18:46:00 Test Item Value Reference Range Interpretation Comments Kanab-Hep C Ab (test Negative *NA*(07/22/14 code = Kanab-Hep C 1:46 PM) Ab) [facility] AND [id number] 18:46:00 Test Item Value Reference Range Interpretation Comments UA Urobilinogen (test code = UA <=1.0 mg/dL 0.1-1.0 Urobilinogen) [facility] AND [id number] 18:46:00 Test Item Value Reference Range Interpretation Comments UA Sq Epi (test code = UA Sq Epi) None Seen [facility] AND [id number] 18:46:00 Test Item Value Reference Range Interpretation Comments UA Leuk Est (test Negative (07/22/14 1:46 code = UA Leuk Est) PM) [facility] AND [id number] 18:46:00 Test Item Value Reference Range Interpretation Comments UA Nitrite (test code Negative (07/22/14 1:46 = UA Nitrite) PM) [facility] AND [id number] 18:46:00 Test Item Value Reference Range Interpretation Comments UA Blood (test code = Negative (07/22/14 1:46 UA Blood) PM) [facility] AND [id number] 18:46:00 Test Item Value Reference Range Interpretation Comments UA Ketones (test code = UA Negative mg/dL Ketones) [facility] AND [id number] 18:46:00 Test Item Value Reference Range Interpretation Comments UA Bili (test code = Negative *NA*(07/22/14 UA Bili) 1:46 PM) [facility] [id number] 18:46:00 Test Item Value Reference Range Interpretation Comments UA Bacteria (test code = UA Occasional /HPF Bacteria) [facility] [id number] 18:46:00 Test Item Value Reference Range Interpretation Comments UA RBC (test code = no gt See_Comment [Automa elizabeth message] The UA RBC) system which ge nerated this result transmit elizabeth reference range : <=2. The reference range was not used to interpr et this result as margaret l/abnormal. [facility] [id number] 18:46:00 Test Item Value Reference Range Interpretation Comments UA WBC (test code = 1 See_Comment [Automa elizabeth message] The UA WBC) system which ge nerated this result transmit elizabeth reference range : <=5. The reference range was not used to interpr et this result as margaret l/abnormal. [facility] [id number] 18:46:00 Test Item Value Reference Range Interpretation Comments UA Glucose (test code = UA Glucose) 30 mg/dL [facility] [id number] 18:46:00 Test Item Value Reference Range Interpretation Comments UA Protein (test code = UA Negative mg/dL Protein) [facility] [id number] 18:46:00 Test Item Value Reference Range Interpretation Comments UA pH (test code = UA pH) 6.5 5.0-8.0 [facility] [id number] 18:46:00 Test Item Value Reference Range Interpretation Comments UA Turbidity (test code = Clear (07/22/14 1:46 UA Turbidity) PM) [facility] [id number] 18:46:00 Test Item Value Reference Range Interpretation Comments UA Spec Grav (test code = UA Spec Grav) 1.010 [facility] [id number] 18:46:00 Test Item Value Reference Range Interpretation Comments UA Color (test code = Light Yellow UA Color) *NA*(07/22/14 1:46 PM) [facility] [id number] 18:46:00 Test Item Value Reference Range Interpretation Comments Magnesium Lvl (test code = Magnesium 1.8 1.8-2.4 Lvl) [facility] BasexxyOXFETYNFGRJL6665-63-90 18:46:00 Test Item Value Reference Range Interpretation Comments AGAP (test code = AGAP) 13.2 10.0-20.0 [facility] HospitalLglhvejHJRZPCTZGDDH2930-35-07 18:46:00 Test Item Value Reference Range Interpretation Comments B/C Ratio (test code = B/C Ratio) 18 6-25 [facility] HospitalGddadopGGXYVWYVXSIU9424-46-08 18:46:00 Test Item Value Reference Range Interpretation Comments A/G Ratio (test code = A/G Ratio) 1.1 0.7-1.6 [facility] HospitalKkpvjbnQUFQIQPKRFBY7292-10-10 18:46:00 Test Item Value Reference Range Interpretation Comments Globulin (test code = Globulin) 3.3 2.0-4.0 [facility] HospitalLrztwydHCTXFRACYEHI2069-66-18 18:46:00 Test Item Value Reference Range Interpretation Comments eGFR (test code = eGFR) 99 [facility] HospitalVgsvhllFSEEDLZPLQBZ4054-13-53 18:46:00 Test Item Value Reference Range Interpretation Comments Calcium Lvl (test code = Calcium Lvl) 9.0 8.5-10.5 [facility] HospitalQbpjirqRCLIVVYYJDZS0827-14-78 18:46:00 Test Item Value Reference Range Interpretation Comments Chloride Lvl (test code = Chloride Lvl) 106 95-109 [facility] HospitalKdpwjvgQBFVIXQFMSJB5633-25-44 18:46:00 Test Item Value Reference Range Interpretation Comments Creatinine Lvl (test code = Creatinine 0.9 0.5-1.4 Lvl) [facility] HospitalYkmlakzWFOXFYUPSXPS3987-17-93 18:46:00 Test Item Value Reference Range Interpretation Comments Potassium Lvl (test code = Potassium 4.2 3.5-5.1 Lvl) [facility] HospitalCzakgbpTQTHNOWHVJRC8249-03-41 18:46:00 Test Item Value Reference Range Interpretation Comments Sodium Lvl (test code = Sodium Lvl) 139 135-145 [facility] HospitalPupezikPXFRFYYQUMRR2347-80-31 18:46:00 Test Item Value Reference Range Interpretation Comments CO2 (test code = CO2) 24 24-32 [facility] HospitalTjzcjpzXRVMLPOCVJZU0240-69-47 18:46:00 Test Item Value Reference Range Interpretation Comments BUN (test code = BUN) 16 7-22 [facility] HospitalEbjcarjNMAALEKKBVDW0398-57-09 18:46:00 Test Item Value Reference Range Interpretation Comments Glucose Lvl (test code = Glucose Lvl) 141 70-99 [facility] HospitalDrgruovSLNTLHHECDSP8701-94-38 18:46:00 Test Item Value Reference Range Interpretation Comments Albumin Lvl (test code = Albumin Lvl) 3.6 3.5-5.0 [facility] HospitalBnrgvbxQMGTXZMUAUWI6778-15-75 18:46:00 Test Item Value Reference Range Interpretation Comments Alk Phos (test code = Alk Phos) 65 39-136 [facility] HospitalGzczybeHQXKQSRJYZFR2457-59-05 18:46:00 Test Item Value Reference Range Interpretation Comments Bili Total (test code = Bili Total) 0.3 0.2-1.3 [facility] HospitalQjxjbdmFRJCCYSVSRXP5331-72-26 18:46:00 Test Item Value Reference Range Interpretation Comments ALT (test code = ALT) 100 See_Comment [Auto mated message] The system which ge nerated this result transmit elizabeth reference range : <=65. The reference range was not used to interpr et this result as margaret l/abnormal. [facility] HospitalEksjeopLPMJUTAQIBWB8141-44-50 18:46:00 Test Item Value Reference Range Interpretation Comments AST (test code = AST) 53 See_Comment [Auto mated message] The system which ge nerated this result transmit elizabeth reference range : <=37. The reference range was not used to interpr et this result as margaret l/abnormal. [facility] HospitalVvhxprqZWKCEYUFVKVO6609-85-83 18:46:00 Test Item Value Reference Range Interpretation Comments Total Protein (test code = Total 6.9 6.4-8.4 Protein) [facility]lineNicynbqRKLNNBJINT5266-11-89 18:46:00 Test Item Value Reference Range Interpretation Comments Eosinophils (test code = 4.2 See_Comment [A utomated message] The Eosinophils) system which ge nerated this result tra nsmitted reference range : <=4.0. The reference r mitra was not used to int erpret this result as normal/abnormal . [facility]lineFdfsvesWJRMOASKKW9988-56-26 18:46:00 Test Item Value Reference Range Interpretation Comments Segs (test code = Segs) 56.4 45.0-75.0 [facility]lineUaqerdnTEQCJYZNNC5201-10-02 18:46:00 Test Item Value Reference Range Interpretation Comments Monocytes (test code = Monocytes) 10.3 2.0-12.0 [facility]lineWirjbqyUCBWVJSWOL6970-98-16 18:46:00 Test Item Value Reference Range Interpretation Comments Lymphocytes (test code = Lymphocytes) 28.0 20.0-40.0 [facility]lineFzcunsuOZUHKHLOYM9336-11-92 18:46:00 Test Item Value Reference Range Interpretation Comments Monocytes # (test code 0.5 See_Comment [Aut omated message] The = Monocytes #) system which generated this result tra nsmitted reference range : <=0.8. The reference r mitra was not used to int erpret this result as normal/abnormal . [facility]lineYffpwetWZXAQGODVT8747-50-87 18:46:00 Test Item Value Reference Range Interpretation Comments Basophils (test code = 1.1 See_Comment [Aut omated message] The Basophils) system which ge nerated this result tra nsmitted reference range : <=1.0. The reference r mitra was not used to int erpret this result as normal/abnormal . [facility]lineSrsjsnjLPENENDOHT4948-66-18 18:46:00 Test Item Value Reference Range Interpretation Comments Lymphocytes # (test code = Lymphocytes 1.5 1.0-5.5 #) [facility] ShorelineZjgkorkWPCSLDINRP1329-90-76 18:46:00 Test Item Value Reference Range Interpretation Comments Segs-Bands # (test code = Segs-Bands #) 2.9 1.5-8.1 [facility]lineOsycmvzLVHNIAADCH7793-17-91 18:46:00 Test Item Value Reference Range Interpretation Comments Eosinophils # (test code 0.2 See_Comment [A utomated message] The = Eosinophils #) system ic h generated this result tra nsmitted reference range : <=0.5. The reference r mitra was not used to int erpret this result as normal/abnormal . [facility]lineBgoacujIUNVZJDUFX6699-77-40 18:46:00 Test Item Value Reference Range Interpretation Comments Basophils # (test code 0.1 See_Comment [Aut omated message] The = Basophils #) system which generated this result tra nsmitted reference range : <=0.2. The reference r mitra was not used to int erpret this result as normal/abnormal . [facility]lineMvtieugRNRUEVXYGR6342-38-40 18:46:00 Test Item Value Reference Range Interpretation Comments PT (test code = PT) 11.2 s 12.0-14.7 [facility]lineWewmfolJBWGLSDHIS2020-73-48 18:46:00 Test Item Value Reference Range Interpretation Comments INR (test code = INR) 0.82 0.85-1.17 [facility]lineXnenmqwQYZVTVWXVW3792-24-69 18:46:00 Test Item Value Reference Range Interpretation Comments PTT (test code = PTT) 28.6 s 22.9-35.8 [facility]lineFsydiwkMODHDZGMFT8918-47-93 18:46:00 Test Item Value Reference Range Interpretation Comments MPV (test code = MPV) 8.1 7.4-10.4 [facility]lineFcdrcqfVWDQKGCPRV7438-42-18 18:46:00 Test Item Value Reference Range Interpretation Comments Platelet (test code = Platelet) 301 133-450 [facility]lineXeuspdmJWTDVHTYGU2023-84-68 18:46:00 Test Item Value Reference Range Interpretation Comments RDW (test code = RDW) 14.5 11.5-14.5 [facility]lineYdxseacOLIWSRXAWY4207-36-95 18:46:00 Test Item Value Reference Range Interpretation Comments RBC (test code = RBC) 4.84 4.70-6.10 [facility]lineHyudpqlNHSIEARJHZ5969-67-07 18:46:00 Test Item Value Reference Range Interpretation Comments Hgb (test code = Hgb) 14.4 14.0-18.0 [facility]lineIncqyowRQPTRZHWFW8056-44-23 18:46:00 Test Item Value Reference Range Interpretation Comments WBC (test code = WBC) 5.2 3.7-10.4 [facility]lineYnbzvkdSQEPBYWEPY7085-79-47 18:46:00 Test Item Value Reference Range Interpretation Comments MCH (test code = MCH) 29.8 pg 27.0-31.0 [facility]lineEkuuvuaULLCBNTRUQ9767-81-41 18:46:00 Test Item Value Reference Range Interpretation Comments MCV (test code = MCV) 92.0 80.0-94.0 [facility]lineJlpqzjzGEOUEYZYWU1247-32-34 18:46:00 Test Item Value Reference Range Interpretation Comments Hct (test code = Hct) 44.5 42.0-54.0 [facility]lineAfwzsxtUIQAUHSDXM9079-75-73 18:46:00 Test Item Value Reference Range Interpretation Comments MCHC (test code = MCHC) 32.4 32.0-36.0 [facility]GimvttvMFDTNEAZFR8035-39-90 18:46:00 Test Item Value Reference Range Interpretation Comments Kanab-Hep C Ab (test Negative *NA*(07/22/14 code = Kanab-Hep C 1:46 PM) Ab) [facility] AND [id number] 18:46:00 Test Item Value Reference Range Interpretation Comments UA Urobilinogen (test code = UA <=1.0 mg/dL 0.1-1.0 Urobilinogen) [facility] AND [id number] 18:46:00 Test Item Value Reference Range Interpretation Comments UA Sq Epi (test code = UA Sq Epi) None Seen [facility] AND [id number] 18:46:00 Test Item Value Reference Range Interpretation Comments UA Leuk Est (test Negative (07/22/14 1:46 code = UA Leuk Est) PM) [facility] AND [id number] 18:46:00 Test Item Value Reference Range Interpretation Comments UA Nitrite (test code Negative (07/22/14 1:46 = UA Nitrite) PM) [facility] AND [id number] 18:46:00 Test Item Value Reference Range Interpretation Comments UA Blood (test code = Negative (07/22/14 1:46 UA Blood) PM) [facility] AND [id number] 18:46:00 Test Item Value Reference Range Interpretation Comments UA Ketones (test code = UA Negative mg/dL Ketones) [facility] AND [id number] 18:46:00 Test Item Value Reference Range Interpretation Comments UA Bili (test code = Negative *NA*(07/22/14 UA Bili) 1:46 PM) [facility] AND [id number] 18:46:00 Test Item Value Reference Range Interpretation Comments UA Bacteria (test code = UA Occasional /HPF Bacteria) [facility] AND [id number] 18:46:00 Test Item Value Reference Range Interpretation Comments UA RBC (test code = no gt See_Comment [Automa elizabeth message] The UA RBC) system which ge nerated this result transmit elizabeth reference range : <=2. The reference range was not used to interpr et this result as margaret l/abnormal. [facility] AND [id number] 18:46:00 Test Item Value Reference Range Interpretation Comments UA WBC (test code = 1 See_Comment [Automa elizabeth message] The UA WBC) system which ge nerated this result transmit elizabeth reference range : <=5. The reference range was not used to interpr et this result as margaret l/abnormal. [facility] AND [id number] 18:46:00 Test Item Value Reference Range Interpretation Comments UA Glucose (test code = UA Glucose) 30 mg/dL [facility] AND [id number] 18:46:00 Test Item Value Reference Range Interpretation Comments UA Protein (test code = UA Negative mg/dL Protein) [facility] AND [id number] 18:46:00 Test Item Value Reference Range Interpretation Comments UA pH (test code = UA pH) 6.5 5.0-8.[address] [facility] AND [id number] 18:46:00 Test Item Value Reference Range Interpretation Comments UA Turbidity (test code = Clear (07/22/14 1:46 UA Turbidity) PM) [facility] AND [id number] 18:46:00 Test Item Value Reference Range Interpretation Comments UA Spec Grav (test code = UA Spec Grav) 1.[address] [facility] AND [id number] 18:46:00 Test Item Value Reference Range Interpretation Comments UA Color (test code = Light Yellow UA Color) *NA*(07/22/14 1:46 PM) [facility] [id number] 18:46:00 Test Item Value Reference Range Interpretation Comments Magnesium Lvl (test code = Magnesium 1.8 1.8-2.4 Lvl) [facility] HospitalQmvqdvqQDNWGHHMIZUG7143-49-00 18:46:00 Test Item Value Reference Range Interpretation Comments AGAP (test code = AGAP) 13.2 10.0-20.0 [facility] HospitalTwircnkUSEIRZJQPEPA5789-52-54 18:46:00 Test Item Value Reference Range Interpretation Comments B/C Ratio (test code = B/C Ratio) 18 6-25 [facility] HospitalEoqkfrtSPBKGREKWBEC4346-64-09 18:46:00 Test Item Value Reference Range Interpretation Comments A/G Ratio (test code = A/G Ratio) 1.1 0.7-1.6 [facility] HospitalSwhwjskPVIIZPAYQNIK6184-99-18 18:46:00 Test Item Value Reference Range Interpretation Comments Globulin (test code = Globulin) 3.3 2.0-4.0 [facility] HospitalWhlaqhdDTFVLPIHLYSI7712-73-74 18:46:00 Test Item Value Reference Range Interpretation Comments eGFR (test code = eGFR) 99 [facility] HospitalJeabgunLWLFNUXDQJSE2294-74-01 18:46:00 Test Item Value Reference Range Interpretation Comments Calcium Lvl (test code = Calcium Lvl) 9.0 8.5-10.5 [facility] HospitalHawcossJRGUNUOGTFEL6996-79-66 18:46:00 Test Item Value Reference Range Interpretation Comments Chloride Lvl (test code = Chloride Lvl) 106 95-109 [facility] HospitalApqqynaGBAWFFMKTIDP2768-00-16 18:46:00 Test Item Value Reference Range Interpretation Comments Creatinine Lvl (test code = Creatinine 0.9 0.5-1.4 Lvl) [facility] HospitalSfogbbaNBSDVRGAZTLB4952-80-71 18:46:00 Test Item Value Reference Range Interpretation Comments Potassium Lvl (test code = Potassium 4.2 3.5-5.1 Lvl) [facility] HospitalLqphwqxSIOTMMSYFVIC3601-92-07 18:46:00 Test Item Value Reference Range Interpretation Comments Sodium Lvl (test code = Sodium Lvl) 139 135-145 [facility] HospitalTfitksyXJORHIGNIPDS6174-38-98 18:46:00 Test Item Value Reference Range Interpretation Comments CO2 (test code = CO2) 24 24-32 [facility] HospitalBlrjjqoOBWXURZYIBUN9203-86-76 18:46:00 Test Item Value Reference Range Interpretation Comments BUN (test code = BUN) 16 7-22 [facility] HospitalXdgvrxeZSDCGMWQWWVB3380-61-68 18:46:00 Test Item Value Reference Range Interpretation Comments Glucose Lvl (test code = Glucose Lvl) 141 70-99 [facility] HospitalMfzuhxjISTYNPLANOZT5180-65-98 18:46:00 Test Item Value Reference Range Interpretation Comments Albumin Lvl (test code = Albumin Lvl) 3.6 3.5-5.0 [facility] HospitalBbepnrlENYGLKCRJHCA4305-78-58 18:46:00 Test Item Value Reference Range Interpretation Comments Alk Phos (test code = Alk Phos) 65 39-136 [facility] HospitalVsajdzzMFLUAVLAJOSB4000-98-29 18:46:00 Test Item Value Reference Range Interpretation Comments Bili Total (test code = Bili Total) 0.3 0.2-1.3 [facility] HospitalOzlrkkjJBWDIRFZFMKP2893-64-38 18:46:00 Test Item Value Reference Range Interpretation Comments ALT (test code = ALT) 100 See_Comment [Auto mated message] The system which ge nerated this result transmit elizabeth reference range : <=65. The reference range was not used to interpr et this result as margaret l/abnormal. [facility] HospitalAyxgighQPJVWSDBEWGP2157-38-01 18:46:00 Test Item Value Reference Range Interpretation Comments AST (test code = AST) 53 See_Comment [Auto mated message] The system which ge nerated this result transmit elizabeth reference range : <=37. The reference range was not used to interpr et this result as margaret l/abnormal. [facility] HospitalZeortmsLRVMMVFEARIH2618-68-81 18:46:00 Test Item Value Reference Range Interpretation Comments Total Protein (test code = Total 6.9 6.4-8.4 Protein) [facility]lineSgqueglXOFAETQPAM6397-77-53 18:46:00 Test Item Value Reference Range Interpretation Comments Eosinophils (test code = 4.2 See_Comment [A utomated message] The Eosinophils) system which ge nerated this result tra nsmitted reference range : <=4.0. The reference r mitra was not used to int erpret this result as normal/abnormal . [facility]lineFhmijwkAWTANYDLNG6238-57-74 18:46:00 Test Item Value Reference Range Interpretation Comments Segs (test code = Segs) 56.4 45.0-75.0 [facility]lineUwvusygQBDSFRAZCF6129-99-83 18:46:00 Test Item Value Reference Range Interpretation Comments Monocytes (test code = Monocytes) 10.3 2.0-12.0 [facility]lineJvomdhtGYNQLIKYZS9394-74-99 18:46:00 Test Item Value Reference Range Interpretation Comments Lymphocytes (test code = Lymphocytes) 28.0 20.0-40.0 [facility]lineYluuniyYUXDSOJCNP9161-40-12 18:46:00 Test Item Value Reference Range Interpretation Comments Monocytes # (test code 0.5 See_Comment [Aut omated message] The = Monocytes #) system which generated this result tra nsmitted reference range : <=0.8. The reference r mitra was not used to int erpret this result as normal/abnormal . [facility]lineAanmflqOYYKDVFWFS7534-46-08 18:46:00 Test Item Value Reference Range Interpretation Comments Basophils (test code = 1.1 See_Comment [Aut omated message] The Basophils) system which ge nerated this result tra nsmitted reference range : <=1.0. The reference r mitra was not used to int erpret this result as normal/abnormal . [facility] ShorelineLfwatbaZGPINHUVKS7486-02-24 18:46:00 Test Item Value Reference Range Interpretation Comments Lymphocytes # (test code = Lymphocytes 1.5 1.0-5.5 #) [facility] ShorelineHoufordQPVRMZVXGQ7774-52-21 18:46:00 Test Item Value Reference Range Interpretation Comments Segs-Bands # (test code = Segs-Bands #) 2.9 1.5-8.1 [facility]lineLmehfxfDAPWWJVCTM8509-88-40 18:46:00 Test Item Value Reference Range Interpretation Comments Eosinophils # (test code 0.2 See_Comment [A utomated message] The = Eosinophils #) system whic h generated this result tra nsmitted reference range : <=0.5. The reference r mitra was not used to int erpret this result as normal/abnormal . [facility] ShorelineGxmbbhiSKDJJKGUHT0537-93-33 18:46:00 Test Item Value Reference Range Interpretation Comments Basophils # (test code 0.1 See_Comment [Aut omated message] The = Basophils #) system which generated this result tra nsmitted reference range : <=0.2. The reference r mitra was not used to int erpret this result as normal/abnormal . [facility]lineHeptqmbJNHAVXIYUT8690-06-73 18:46:00 Test Item Value Reference Range Interpretation Comments PT (test code = PT) 11.2 s 12.0-14.7 [facility] ShorelineMttiljhWIMQAERZKH5152-72-35 18:46:00 Test Item Value Reference Range Interpretation Comments INR (test code = INR) 0.82 0.85-1.17 [facility] ShorelineWjxyuprVORVWLEPNH7605-94-96 18:46:00 Test Item Value Reference Range Interpretation Comments PTT (test code = PTT) 28.6 s 22.9-35.8 [facility] ShorelineAniuunlDIVFBAOYFH4408-34-37 18:46:00 Test Item Value Reference Range Interpretation Comments MPV (test code = MPV) 8.1 7.4-10.4 [facility] ShorelineImqokmxGWCIEWFEIJ3330-10-40 18:46:00 Test Item Value Reference Range Interpretation Comments Platelet (test code = Platelet) 301 133-450 [facility]PcnmukdNSLPTEXZAZ8970-27-88 18:46:00 Test Item Value Reference Range Interpretation Comments RDW (test code = RDW) 14.5 11.5-14.5 [facility] ShorelineHuaondoCKWHRSRKAO8238-49-35 18:46:00 Test Item Value Reference Range Interpretation Comments RBC (test code = RBC) 4.84 4.70-6.10 [facility]lineXmrpswtTZPBWSKYYQ0354-69-93 18:46:00 Test Item Value Reference Range Interpretation Comments Hgb (test code = Hgb) 14.4 14.0-18.0 [facility]lineUhutxvoLXWSCYFJJZ8470-54-74 18:46:00 Test Item Value Reference Range Interpretation Comments WBC (test code = WBC) 5.2 3.7-10.4 [facility] ShorelineDpllygpDAVYIPQVGZ5616-93-54 18:46:00 Test Item Value Reference Range Interpretation Comments MCH (test code = MCH) 29.8 pg 27.0-31.0 [facility] ShorelineQdtguyzPVPSIWBHAK6457-92-12 18:46:00 Test Item Value Reference Range Interpretation Comments MCV (test code = MCV) 92.0 80.0-94.0 [facility] HospitalEchjhfoNSOHAOVRUP2135-47-82 18:46:00 Test Item Value Reference Range Interpretation Comments Hct (test code = Hct) 44.5 42.0-54.0 [facility] HospitalHxrheuwFWUTQCKDKF8973-94-52 18:46:00 Test Item Value Reference Range Interpretation Comments MCHC (test code = MCHC) 32.4 32.0-36.0 [facility] CenterPqmtmbyZYTDYOBLYI7025-39-47 18:46:00 Test Item Value Reference Range Interpretation Comments Kanab-Hep C Ab (test Negative *NA*(07/22/14 code = Kan[place]-Hep C 1:46 PM) Ab) [facility] AND [id number] 18:46:00 Test Item Value Reference Range Interpretation Comments UA Urobilinogen (test code = UA <=1.0 mg/dL 0.1-1.0 [facility]robilinogen) [facility] [id number] 18:46:00 Test Item Value Reference Range Interpretation Comments UA Sq Epi (test code = UA Sq Epi) None Seen [facility] AND [id number] 18:46:00 Test Item Value Reference Range Interpretation Comments UA Leuk Est (test Negative (07/22/14 1:46 code = UA Leuk Est) PM) [facility] AND [id number] 18:46:00 Test Item Value Reference Range Interpretation Comments UA Nitrite (test code Negative (07/22/14 1:46 = UA Nitrite) PM) [facility] AND [id number] 18:46:00 Test Item Value Reference Range Interpretation Comments UA Blood (test code = Negative (07/22/14 1:46 UA Blood) PM) [facility] AND [id number] 18:46:00 Test Item Value Reference Range Interpretation Comments UA Ketones (test code = UA Negative mg/dL Ketones) [facility] AND [id number] 18:46:00 Test Item Value Reference Range Interpretation Comments UA Bili (test code = Negative *NA*(07/22/14 UA Bili) 1:46 PM) [facility] AND [id number] 18:46:00 Test Item Value Reference Range Interpretation Comments UA Bacteria (test code = UA Occasional /HPF Bacteria) [facility] AND [id number] 18:46:00 Test Item Value Reference Range Interpretation Comments UA RBC (test code = no gt See_Comment [Automa elizabeth message] The UA RBC) system which ge nerated this result transmit elizabeth reference range : <=2. The reference range was not used to interpr et this result as margaret l/abnormal. [facility] AND [id number] 18:46:00 Test Item Value Reference Range Interpretation Comments UA WBC (test code = 1 See_Comment [Automa elizabeth message] The UA WBC) system which ge nerated this result transmit elizabeth reference range : <=5. The reference range was not used to interpr et this result as margaret l/abnormal. [facility] AND [id number] 18:46:00 Test Item Value Reference Range Interpretation Comments UA Glucose (test code = UA Glucose) 30 mg/dL [facility] AND [id number] 18:46:00 Test Item Value Reference Range Interpretation Comments UA Protein (test code = UA Negative mg/dL Protein) [facility] AND [id number] 18:46:00 Test Item Value Reference Range Interpretation Comments UA pH (test code = UA pH) 6.5 5.0-8.0 [facility] [id number] 18:46:00 Test Item Value Reference Range Interpretation Comments UA Turbidity (test code = Clear (07/22/14 1:46 [facility]A Turbidity) PM) [facility] [id number] 18:46:00 Test Item Value Reference Range Interpretation Comments UA Spec Grav (test code = UA Spec Grav) 1.[address] [facility] AND [id number] 18:46:00 Test Item Value Reference Range Interpretation Comments UA Color (test code = Light Yellow UA Color) *NA*(07/22/14 1:46 PM) [facility]annCHEM [id number] 18:46:00 Test Item Value Reference Range Interpretation Comments Magnesium Lvl (test code = Magnesium 1.8 1.8-2.4 Lvl) [facility] HospitalQprnfmaQLQIWGNDVBVO2030-06-93 18:46:00 Test Item Value Reference Range Interpretation Comments AGAP (test code = AGAP) 13.2 10.0-20.0 [facility]UqylmpeWDTCBONWUUNC9170-39-79 18:46:00 Test Item Value Reference Range Interpretation Comments B/C Ratio (test code = B/C Ratio) 18 6-25 [facility] CenterUjkqiheULDSHXIRQEHV2441-07-04 18:46:00 Test Item Value Reference Range Interpretation Comments A/G Ratio (test code = A/G Ratio) 1.1 0.7-1.6 [facility] HospitalXwpwbfwURUSGTVASVMM5029-19-17 18:46:00 Test Item Value Reference Range Interpretation Comments Globulin (test code = Globulin) 3.3 2.0-4.0 [facility] HospitalLybcsduVAAOXCODKKCH0978-20-69 18:46:00 Test Item Value Reference Range Interpretation Comments eGFR (test code = eGFR) 99 [facility] CenterPimrgsoPFPXGVRNGTTT9707-07-73 18:46:00 Test Item Value Reference Range Interpretation Comments Calcium Lvl (test code = Calcium Lvl) 9.0 8.5-10.5 [facility] HospitalEvjmmqzJXFMCOBWVXJY0385-76-09 18:46:00 Test Item Value Reference Range Interpretation Comments Chloride Lvl (test code = Chloride Lvl) 106 95-109 [facility] HospitalCnxyfihORTFSNHILUVY1934-09-66 18:46:00 Test Item Value Reference Range Interpretation Comments Creatinine Lvl (test code = Creatinine 0.9 0.5-1.4 Lvl) [facility] HospitalIgeqoniBZUOHLDKFWSE3152-82-77 18:46:00 Test Item Value Reference Range Interpretation Comments Potassium Lvl (test code = Potassium 4.2 3.5-5.1 Lvl) [facility] HospitalCvxpuqlSFHLTAGZQDMZ8167-53-78 18:46:00 Test Item Value Reference Range Interpretation Comments Sodium Lvl (test code = Sodium Lvl) 139 135-145 [facility] HospitalLzrrcmsRSZYOYOKSKCA7989-43-21 18:46:00 Test Item Value Reference Range Interpretation Comments CO2 (test code = CO2) 24 24-32 [facility] HospitalOguifsbPYIARGXCGHYJ4799-52-33 18:46:00 Test Item Value Reference Range Interpretation Comments BUN (test code = BUN) 16 7-22 [facility] HospitalHmnqshuQVAYSDOXVOFT9408-44-44 18:46:00 Test Item Value Reference Range Interpretation Comments Glucose Lvl (test code = Glucose Lvl) 141 70-99 [facility] HospitalXnekyxpZOACXNZHBIMZ1523-23-62 18:46:00 Test Item Value Reference Range Interpretation Comments Albumin Lvl (test code = Albumin Lvl) 3.6 3.5-5.0 [facility] HospitalCtuydbsBTHKKHFRNMUP5952-80-63 18:46:00 Test Item Value Reference Range Interpretation Comments Alk Phos (test code = Alk Phos) 65 39-136 [facility] HospitalElwkjqtNPLRVLPJQDHC2115-27-04 18:46:00 Test Item Value Reference Range Interpretation Comments Bili Total (test code = Bili Total) 0.3 0.2-1.3 [facility] HospitalTesiauhJPZTXSQBYACE4965-92-90 18:46:00 Test Item Value Reference Range Interpretation Comments ALT (test code = ALT) 100 See_Comment [Auto mated message] The system which ge nerated this result transmit elizabeth reference range : <=65. The reference range was not used to interpr et this result as margaret l/abnormal. [facility] HospitalKurpvdjZINCNROAOXIO4958-88-18 18:46:00 Test Item Value Reference Range Interpretation Comments AST (test code = AST) 53 See_Comment [Auto mated message] The system which ge nerated this result transmit elizabeth reference range : <=37. The reference range was not used to interpr et this result as margaret l/abnormal. [facility] HospitalYoznrowHRNHPIVDPMNU8861-16-47 18:46:00 Test Item Value Reference Range Interpretation Comments Total Protein (test code = Total 6.9 6.4-8.4 Protein) [facility]lineNebwdrbKYSUSAPBXP0112-27-91 18:46:00 Test Item Value Reference Range Interpretation Comments Eosinophils (test code = 4.2 See_Comment [A utomated message] The Eosinophils) system which ge nerated this result tra nsmitted reference range : <=4.0. The reference r mitra was not used to int erpret this result as normal/abnormal . [facility]lineHdspyluKGJUZYAGPB7289-84-76 18:46:00 Test Item Value Reference Range Interpretation Comments Segs (test code = Segs) 56.4 45.0-75.0 [facility]linePdipjedSFTGQGLEBE2444-86-51 18:46:00 Test Item Value Reference Range Interpretation Comments Monocytes (test code = Monocytes) 10.3 2.0-12.0 [facility]lineOeiuvoiPVAMYJTKEP9058-08-07 18:46:00 Test Item Value Reference Range Interpretation Comments Lymphocytes (test code = Lymphocytes) 28.0 20.0-40.0 [facility]lineIuzwdykKYBNEEQCZP6241-18-39 18:46:00 Test Item Value Reference Range Interpretation Comments Monocytes # (test code 0.5 See_Comment [Aut omated message] The = Monocytes #) system which generated this result tra nsmitted reference range : <=0.8. The reference r mitra was not used to int erpret this result as normal/abnormal . [facility]lineEeaywtdZVZLZXFPKF2977-89-49 18:46:00 Test Item Value Reference Range Interpretation Comments Basophils (test code = 1.1 See_Comment [Aut omated message] The Basophils) system which ge nerated this result tra nsmitted reference range : <=1.0. The reference r mitra was not used to int erpret this result as normal/abnormal . [facility]lineIovsxdpYXSOHKZXKB8285-01-07 18:46:00 Test Item Value Reference Range Interpretation Comments Lymphocytes # (test code = Lymphocytes 1.5 1.0-5.5 #) [facility]lineEncblwaSSGDTSZZFK5029-16-05 18:46:00 Test Item Value Reference Range Interpretation Comments Segs-Bands # (test code = Segs-Bands #) 2.9 1.5-8.1 [facility]lineQwtfztiFGKDABYDBO0204-06-69 18:46:00 Test Item Value Reference Range Interpretation Comments Eosinophils # (test code 0.2 See_Comment [A utomated message] The = Eosinophils #) system whic h generated this result tra nsmitted reference range : <=0.5. The reference r mitra was not used to int erpret this result as normal/abnormal . [facility]lineLzveitgVYBEDMSZFN9890-59-54 18:46:00 Test Item Value Reference Range Interpretation Comments Basophils # (test code 0.1 See_Comment [Aut omated message] The = Basophils #) system which generated this result tra nsmitted reference range : <=0.2. The reference r mitra was not used to int erpret this result as normal/abnormal . [facility]lineIereawvCXWPDAQRFH6569-67-18 18:46:00 Test Item Value Reference Range Interpretation Comments PT (test code = PT) 11.2 s 12.0-14.7 [facility]linePzesoexHFTEYJLUXV9620-33-91 18:46:00 Test Item Value Reference Range Interpretation Comments INR (test code = INR) 0.82 0.85-1.17 [facility]lineHbktwuzWJFBRECZSF5169-88-67 18:46:00 Test Item Value Reference Range Interpretation Comments PTT (test code = PTT) 28.6 s 22.9-35.8 [facility]lineOhfsuvvASRJQJDTYZ8957-37-09 18:46:00 Test Item Value Reference Range Interpretation Comments MPV (test code = MPV) 8.1 7.4-10.4 [facility]lineEctldhzKWHKSQDTUL4927-56-82 18:46:00 Test Item Value Reference Range Interpretation Comments Platelet (test code = Platelet) 301 133-450 [facility]lineCblqlxgLEEWGTDHNX3175-94-07 18:46:00 Test Item Value Reference Range Interpretation Comments RDW (test code = RDW) 14.5 11.5-14.5 [facility]lineBfoutpwWMRUXASTAI0678-69-65 18:46:00 Test Item Value Reference Range Interpretation Comments RBC (test code = RBC) 4.84 4.70-6.10 [facility]lineOcgrnhxLPXWBBIQXP4496-98-91 18:46:00 Test Item Value Reference Range Interpretation Comments Hgb (test code = Hgb) 14.4 14.0-18.0 [facility] CenterVnjaymzDEEJHQSSNR9035-43-32 18:46:00 Test Item Value Reference Range Interpretation Comments WBC (test code = WBC) 5.2 3.7-10.4 [facility]FzedinqEYAFFSLOWP1717-94-15 18:46:00 Test Item Value Reference Range Interpretation Comments MCH (test code = MCH) 29.8 pg 27.0-31.0 [facility] HospitalVwkqpvdEFFNXEBNTC2695-96-07 18:46:00 Test Item Value Reference Range Interpretation Comments MCV (test code = MCV) 92.0 80.0-94.0 [facility] HospitalSktwdqdLODGHKTRSS1254-26-21 18:46:00 Test Item Value Reference Range Interpretation Comments Hct (test code = Hct) 44.5 42.0-54.0 [facility] HospitalKgmkbpfYFZGUBJPCO3129-33-10 18:46:00 Test Item Value Reference Range Interpretation Comments MCHC (test code = MCHC) 32.4 32.0-36.0 [facility] CenterMcmvcxfVWAUUVIXEE8673-35-79 18:46:00 Test Item Value Reference Range Interpretation Comments [place]-Hep C Ab (test Negative *NA*(07/22/14 code = [place]-Hep C 1:46 PM) Ab) [facility] AND [id number] 18:46:00 Test Item Value Reference Range Interpretation Comments UA Urobilinogen (test code = UA <=1.0 mg/dL 0.1-1.0 Urobilinogen) [facility] AND [id number] 18:46:00 Test Item Value Reference Range Interpretation Comments UA Sq Epi (test code = UA Sq Epi) None Seen [facility] AND [id number] 18:46:00 Test Item Value Reference Range Interpretation Comments UA Leuk Est (test Negative (07/22/14 1:46 code = UA Leuk Est) PM) [facility] [id number] 18:46:00 Test Item Value Reference Range Interpretation Comments UA Nitrite (test code Negative (07/22/14 1:46 = UA Nitrite) PM) [facility] AND [id number] 18:46:00 Test Item Value Reference Range Interpretation Comments UA Blood (test code = Negative (07/22/14 1:46 UA Blood) PM) [facility] AND [id number] 18:46:00 Test Item Value Reference Range Interpretation Comments UA Ketones (test code = UA Negative mg/dL Ketones) [facility] AND [id number] 18:46:00 Test Item Value Reference Range Interpretation Comments UA Bili (test code = Negative *NA*(07/22/14 UA Bili) 1:46 PM) [facility] AND [id number] 18:46:00 Test Item Value Reference Range Interpretation Comments UA Bacteria (test code = UA Occasional /HPF Bacteria) [facility] AND [id number] 18:46:00 Test Item Value Reference Range Interpretation Comments UA RBC (test code = no gt See_Comment [Automa elizabeth message] The UA RBC) system which ge nerated this result transmit elizabeth reference range : <=2. The reference range was not used to interpr et this result as margaret l/abnormal. [facility] AND [id number] 18:46:00 Test Item Value Reference Range Interpretation Comments UA WBC (test code = 1 See_Comment [Automa elizabeth message] The UA WBC) system which ge nerated this result transmit elizabeth reference range : <=5. The reference range was not used to interpr et this result as margaret l/abnormal. [facility] AND [id number] 18:46:00 Test Item Value Reference Range Interpretation Comments UA Glucose (test code = UA Glucose) 30 mg/dL [facility] AND [id number] 18:46:00 Test Item Value Reference Range Interpretation Comments UA Protein (test code = UA Negative mg/dL Protein) [facility] AND [id number] 18:46:00 Test Item Value Reference Range Interpretation Comments UA pH (test code = UA pH) 6.5 5.0-8.[address] [facility] AND [id number] 18:46:00 Test Item Value Reference Range Interpretation Comments UA Turbidity (test code = Clear (07/22/14 1:46 UA Turbidity) PM) [facility] AND [id number] 18:46:00 Test Item Value Reference Range Interpretation Comments UA Spec Grav (test code = UA Spec Grav) 1.[address] [facility] AND [id number] 18:46:00 Test Item Value Reference Range Interpretation Comments UA Color (test code = Light Yellow UA Color) *NA*(07/22/14 1:46 PM) [facility]2015-06-09 18:46:00 Test Item Value Reference Range Interpretation Comments Magnesium Lvl (test code = Magnesium 1.8 1.8-2.4 Lvl) [facility] HospitalEbseucqLOAETUBAQQFK9142-62-10 18:46:00 Test Item Value Reference Range Interpretation Comments AGAP (test code = AGAP) 13.2 10.0-20.0 [facility] HospitalWkuoocvVIBAUUZMRGOP7519-35-64 18:46:00 Test Item Value Reference Range Interpretation Comments B/C Ratio (test code = B/C Ratio) 18 6-25 [facility] HospitalPfmhshxGTCJCNHAIJIR4344-98-85 18:46:00 Test Item Value Reference Range Interpretation Comments A/G Ratio (test code = A/G Ratio) 1.1 0.7-1.6 [facility] HospitalLsspueyOQJPBCRUVFWQ0182-40-73 18:46:00 Test Item Value Reference Range Interpretation Comments Globulin (test code = Globulin) 3.3 2.0-4.0 [facility] HospitalEpmboveGPTGSLHQCUFY5123-96-41 18:46:00 Test Item Value Reference Range Interpretation Comments eGFR (test code = eGFR) 99 [facility] HospitalFcfueudTOCLLUTXHRYN6430-46-75 18:46:00 Test Item Value Reference Range Interpretation Comments Calcium Lvl (test code = Calcium Lvl) 9.0 8.5-10.5 [facility] HospitalKcnoxjgMADAJUXQLTRP7354-60-17 18:46:00 Test Item Value Reference Range Interpretation Comments Chloride Lvl (test code = Chloride Lvl) 106 95-109 [facility] HospitalJbuumfeMCDGWHJJDGWS2749-68-10 18:46:00 Test Item Value Reference Range Interpretation Comments Creatinine Lvl (test code = Creatinine 0.9 0.5-1.4 Lvl) [facility] HospitalTxduonpLVDMGTEQNRCM2303-05-35 18:46:00 Test Item Value Reference Range Interpretation Comments Potassium Lvl (test code = Potassium 4.2 3.5-5.1 Lvl) [facility] HospitalXaxrilyUAMAOOPMSBNH5539-65-73 18:46:00 Test Item Value Reference Range Interpretation Comments Sodium Lvl (test code = Sodium Lvl) 139 135-145 [facility] HospitalGybwfbiYVBVIUCMCTGS4018-98-02 18:46:00 Test Item Value Reference Range Interpretation Comments CO2 (test code = CO2) 24 24-32 [facility] HospitalYobguspIAHLEEUMPSDX1501-11-01 18:46:00 Test Item Value Reference Range Interpretation Comments BUN (test code = BUN) 16 7-22 [facility] HospitalEajaacyMVNUNBHUESYY0396-45-67 18:46:00 Test Item Value Reference Range Interpretation Comments Glucose Lvl (test code = Glucose Lvl) 141 70-99 [facility] HospitalKxhcmcnTMKVXHLHUXCO4561-13-27 18:46:00 Test Item Value Reference Range Interpretation Comments Albumin Lvl (test code = Albumin Lvl) 3.6 3.5-5.0 [facility] HospitalHwfzcjhXLXESIRMROXM2775-96-92 18:46:00 Test Item Value Reference Range Interpretation Comments Alk Phos (test code = Alk Phos) 65 39-136 [facility] HospitalJqmrfdzPMGEBFSWGPKM1953-17-50 18:46:00 Test Item Value Reference Range Interpretation Comments Bili Total (test code = Bili Total) 0.3 0.2-1.3 [facility] HospitalVwfnkwlRFRCAHFHXRMV9509-50-34 18:46:00 Test Item Value Reference Range Interpretation Comments ALT (test code = ALT) 100 See_Comment [Auto mated message] The system which ge nerated this result transmit elizabeth reference range : <=65. The reference range was not used to interpr et this result as margaret l/abnormal. [facility] HospitalFucrfwlVPRAUJXFAEIE8884-20-72 18:46:00 Test Item Value Reference Range Interpretation Comments AST (test code = AST) 53 See_Comment [Auto mated message] The system which ge nerated this result transmit elizabeth reference range : <=37. The reference range was not used to interpr et this result as margaret l/abnormal. [facility] HospitalLsdrlqgDTPYZYOBCLCD6007-37-67 18:46:00 Test Item Value Reference Range Interpretation Comments Total Protein (test code = Total 6.9 6.4-8.4 Protein) [facility]lineCmaadxlAYPYJHFYNR9223-83-97 18:46:00 Test Item Value Reference Range Interpretation Comments Eosinophils (test code = 4.2 See_Comment [A utomated message] The Eosinophils) system which ge nerated this result tra nsmitted reference range : <=4.0. The reference r mitra was not used to int erpret this result as normal/abnormal . [facility]lineLlocggeCGYQMHEICG5867-92-56 18:46:00 Test Item Value Reference Range Interpretation Comments Segs (test code = Segs) 56.4 45.0-75.0 [facility]lineWvaccfgXSOCDYAXTO7520-51-53 18:46:00 Test Item Value Reference Range Interpretation Comments Monocytes (test code = Monocytes) 10.3 2.0-12.0 [facility]linePjwhqtlGRKYBKLKUL7255-62-72 18:46:00 Test Item Value Reference Range Interpretation Comments Lymphocytes (test code = Lymphocytes) 28.0 20.0-40.0 [facility]lineGvozkhgAIFIUFUFWI5131-07-98 18:46:00 Test Item Value Reference Range Interpretation Comments Monocytes # (test code 0.5 See_Comment [Aut omated message] The = Monocytes #) system which generated this result tra nsmitted reference range : <=0.8. The reference r mitra was not used to int erpret this result as normal/abnormal . [facility]lineOcxtxwkVRZWOAUZSJ7594-55-21 18:46:00 Test Item Value Reference Range Interpretation Comments Basophils (test code = 1.1 See_Comment [Aut omated message] The Basophils) system which ge nerated this result tra nsmitted reference range : <=1.0. The reference r mitra was not used to int erpret this result as normal/abnormal . [facility]linePprefooTLRZAXONLN6259-74-88 18:46:00 Test Item Value Reference Range Interpretation Comments Lymphocytes # (test code = Lymphocytes 1.5 1.0-5.5 #) [facility]lineVryutaiQNNJXGEFFG3062-34-48 18:46:00 Test Item Value Reference Range Interpretation Comments Segs-Bands # (test code = Segs-Bands #) 2.9 1.5-8.1 [facility]lineRhyvnxjQXVFVYINTS0679-76-71 18:46:00 Test Item Value Reference Range Interpretation Comments Eosinophils # (test code 0.2 See_Comment [A utomated message] The = Eosinophils #) system whic h generated this result tra nsmitted reference range : <=0.5. The reference r mitra was not used to int erpret this result as normal/abnormal . [facility]lineCocyxtcFDYJQQSYOY9446-55-45 18:46:00 Test Item Value Reference Range Interpretation Comments Basophils # (test code 0.1 See_Comment [Aut omated message] The = Basophils #) system which generated this result tra nsmitted reference range : <=0.2. The reference r mitra was not used to int erpret this result as normal/abnormal . [facility]lineYrrkvgxNPAAIMUVOH0554-75-41 18:46:00 Test Item Value Reference Range Interpretation Comments PT (test code = PT) 11.2 s 12.0-14.7 [facility]lineZmhnoidFKUQNKVLES1203-08-76 18:46:00 Test Item Value Reference Range Interpretation Comments INR (test code = INR) 0.82 0.85-1.17 [facility]lineMumitozMEBNEQYCGD4269-16-79 18:46:00 Test Item Value Reference Range Interpretation Comments PTT (test code = PTT) 28.6 s 22.9-35.8 [facility]lineMmmlywvTVFORFQBMZ4021-31-12 18:46:00 Test Item Value Reference Range Interpretation Comments MPV (test code = MPV) 8.1 7.4-10.4 [facility]lineCnalwrcOBHYVHHKQL7714-92-42 18:46:00 Test Item Value Reference Range Interpretation Comments Platelet (test code = Platelet) 301 133-450 [facility]lineYgkekakCNHJRIKSKY4617-63-61 18:46:00 Test Item Value Reference Range Interpretation Comments RDW (test code = RDW) 14.5 11.5-14.5 [facility]lineWqpqruqCCDBRGGHLD2017-44-80 18:46:00 Test Item Value Reference Range Interpretation Comments RBC (test code = RBC) 4.84 4.70-6.10 [facility]lineKzkcvyyGCNLCPDVBN7597-14-05 18:46:00 Test Item Value Reference Range Interpretation Comments Hgb (test code = Hgb) 14.4 14.0-18.0 [facility]lineVfgqwxsQMMEIQUOFC5043-82-47 18:46:00 Test Item Value Reference Range Interpretation Comments WBC (test code = WBC) 5.2 3.7-10.4 [place] 154995-06-09 18:46:00 Test Item Value Reference Range Interpretation Comments MCH (test code = MCH) 29.8 pg 27.0-31.0 [place] 154995-06-09 18:46:00 Test Item Value Reference Range Interpretation Comments MCV (test code = MCV) 92.0 80.0-94.0 [place] 154995-06-09 18:46:00 Test Item Value Reference Range Interpretation Comments Hct (test code = Hct) 44.5 42.0-54.0 [facility]KxpbjdjXMSGURSDSW4830-77-66 18:46:00 Test Item Value Reference Range Interpretation Comments MCHC (test code = MCHC) 32.4 32.0-36.0 [facility] SpfnadgCIOERCYUWL4835-72-09 18:46:00 Test Item Value Reference Range Interpretation Comments [place]-Hep C Ab (test Negative *NA*(07/22/14 code = [place]-Hep C 1:46 PM) Ab) [facility] AND [id number] 18:46:00 Test Item Value Reference Range Interpretation Comments UA Urobilinogen (test code = UA <=1.0 mg/dL 0.1-1.0 Urobilinogen) [facility] AND [id number] 18:46:00 Test Item Value Reference Range Interpretation Comments UA Sq Epi (test code = UA Sq Epi) None Seen [facility] AND [id number] 18:46:00 Test Item Value Reference Range Interpretation Comments UA Leuk Est (test Negative (07/22/14 1:46 code = UA Leuk Est) PM) [facility] AND [id number] 18:46:00 Test Item Value Reference Range Interpretation Comments UA Nitrite (test code Negative (07/22/14 1:46 = UA Nitrite) PM) [facility] AND [id number] 18:46:00 Test Item Value Reference Range Interpretation Comments UA Blood (test code = Negative (07/22/14 1:46 UA Blood) PM) [facility] AND [id number] 18:46:00 Test Item Value Reference Range Interpretation Comments UA Ketones (test code = UA Negative mg/dL Ketones) [facility] AND [id number] 18:46:00 Test Item Value Reference Range Interpretation Comments UA Bili (test code = Negative *NA*(07/22/14 UA Bili) 1:46 PM) [facility] AND [id number] 18:46:00 Test Item Value Reference Range Interpretation Comments UA Bacteria (test code = UA Occasional /HPF Bacteria) [facility] AND [id number] 18:46:00 Test Item Value Reference Range Interpretation Comments UA RBC (test code = no gt See_Comment [Automa elizabeth message] The UA RBC) system which ge nerated this result transmit elizabeth reference range : <=2. The reference range was not used to interpr et this result as margaret l/abnormal. [facility] [id number] 18:46:00 Test Item Value Reference Range Interpretation Comments UA WBC (test code = 1 See_Comment [Automa elizabeth message] The UA WBC) system which ge nerated this result transmit elizabeth reference range : <=5. The reference range was not used to interpr et this result as margaret l/abnormal. [facility] [id number] 18:46:00 Test Item Value Reference Range Interpretation Comments UA Glucose (test code = UA Glucose) 30 mg/dL [facility] AND [id number] 18:46:00 Test Item Value Reference Range Interpretation Comments UA Protein (test code = UA Negative mg/dL Protein) [facility] AND [id number] 18:46:00 Test Item Value Reference Range Interpretation Comments UA pH (test code = UA pH) 6.5 5.0-8.0 [facility] AND [id number] 18:46:00 Test Item Value Reference Range Interpretation Comments UA Turbidity (test code = Clear (07/22/14 1:46 UA Turbidity) PM) [facility] AND [id number] 18:46:00 Test Item Value Reference Range Interpretation Comments UA Spec Grav (test code = UA Spec Grav) 1.[address] [facility] AND [id number] 18:46:00 Test Item Value Reference Range Interpretation Comments UA Color (test code = Light Yellow UA Color) *NA*(07/22/14 1:46 PM) [facility]annCHEM [id number] 18:46:00 Test Item Value Reference Range Interpretation Comments Magnesium Lvl (test code = Magnesium 1.8 1.8-2.4 Lvl) [facility] HospitalTyebnafZHWZGUFQPFWR1507-56-03 18:46:00 Test Item Value Reference Range Interpretation Comments AGAP (test code = AGAP) 13.2 10.0-20.0 [facility] AahkqkhOXSVKQGFXSJN2982-93-43 18:46:00 Test Item Value Reference Range Interpretation Comments B/C Ratio (test code = B/C Ratio) 18 6-25 [facility] HospitalFoyrtlwBTXMNANGGPOP0687-99-21 18:46:00 Test Item Value Reference Range Interpretation Comments A/G Ratio (test code = A/G Ratio) 1.1 0.7-1.6 [facility] HospitalMeeayhpZXJZTMWCBORD9215-56-56 18:46:00 Test Item Value Reference Range Interpretation Comments Globulin (test code = Globulin) 3.3 2.0-4.0 [facility] HospitalRbqliipVDYGLDOBXJQZ3616-62-43 18:46:00 Test Item Value Reference Range Interpretation Comments eGFR (test code = eGFR) 99 [facility] HospitalRixzqgbGBAYABFAOWMF1075-45-04 18:46:00 Test Item Value Reference Range Interpretation Comments Calcium Lvl (test code = Calcium Lvl) 9.0 8.5-10.5 [facility] HospitalCzuqzjwHKIRNITELQDD5048-61-99 18:46:00 Test Item Value Reference Range Interpretation Comments Chloride Lvl (test code = Chloride Lvl) 106 95-109 [facility] HospitalXpiqhtxYUQLDCIVRGDN9844-50-43 18:46:00 Test Item Value Reference Range Interpretation Comments Creatinine Lvl (test code = Creatinine 0.9 0.5-1.4 Lvl) [facility] HospitalNkpmihvBRQXLJAGCFZM3233-37-45 18:46:00 Test Item Value Reference Range Interpretation Comments Potassium Lvl (test code = Potassium 4.2 3.5-5.1 Lvl) [facility] HospitalNxtfjkoIDIVKTULBZBA6119-07-82 18:46:00 Test Item Value Reference Range Interpretation Comments Sodium Lvl (test code = Sodium Lvl) 139 135-145 [facility] HospitalDjnohpmIKJESWDIJFGK7715-96-61 18:46:00 Test Item Value Reference Range Interpretation Comments CO2 (test code = CO2) 24 24-32 [facility] HospitalIszttgfJIEEBPTRSFKT7912-67-48 18:46:00 Test Item Value Reference Range Interpretation Comments BUN (test code = BUN) 16 7-22 [facility] HospitalUvlmvqcXESPPBYKPPKH8100-07-08 18:46:00 Test Item Value Reference Range Interpretation Comments Glucose Lvl (test code = Glucose Lvl) 141 70-99 [facility] HospitalDwssolwNTBWWUJKBYCD7434-86-63 18:46:00 Test Item Value Reference Range Interpretation Comments Albumin Lvl (test code = Albumin Lvl) 3.6 3.5-5.0 [facility] HospitalIictvvsGRKTNHYESATD0870-23-58 18:46:00 Test Item Value Reference Range Interpretation Comments Alk Phos (test code = Alk Phos) 65 39-136 [facility] HospitalGfjfjrtGXINYSNSKGVH8854-00-64 18:46:00 Test Item Value Reference Range Interpretation Comments Bili Total (test code = Bili Total) 0.3 0.2-1.3 [facility] HospitalDtdphbnZFZZLYAQDVHO4405-32-06 18:46:00 Test Item Value Reference Range Interpretation Comments ALT (test code = ALT) 100 See_Comment [Auto mated message] The system which ge nerated this result transmit elizabeth reference range : <=65. The reference range was not used to interpr et this result as margaret l/abnormal. [facility] HospitalBxqwugoJRNPUUPIGXOF5891-02-88 18:46:00 Test Item Value Reference Range Interpretation Comments AST (test code = AST) 53 See_Comment [Auto mated message] The system which ge nerated this result transmit elizabeth reference range : <=37. The reference range was not used to interpr et this result as margaret l/abnormal. [facility] HospitalHzpbxgkXBQGDUFQHQAU5080-02-99 18:46:00 Test Item Value Reference Range Interpretation Comments Total Protein (test code = Total 6.9 6.4-8.4 Protein) [facility]linePjgmaymEFBUEGRDRS3703-29-47 18:46:00 Test Item Value Reference Range Interpretation Comments Eosinophils (test code = 4.2 See_Comment [A utomated message] The Eosinophils) system which ge nerated this result tra nsmitted reference range : <=4.0. The reference r mitra was not used to int erpret this result as normal/abnormal . [facility]lineEcwlhgtZNSQVXLBTZ4157-25-86 18:46:00 Test Item Value Reference Range Interpretation Comments Segs (test code = Segs) 56.4 45.0-75.0 [facility]lineGeilvnbIXYYLKYWSF6405-74-41 18:46:00 Test Item Value Reference Range Interpretation Comments Monocytes (test code = Monocytes) 10.3 2.0-12.0 [facility]lineJcalxxaNPBMWGBBSN6483-17-31 18:46:00 Test Item Value Reference Range Interpretation Comments Lymphocytes (test code = Lymphocytes) 28.0 20.0-40.0 [facility]lineYdcqaepWUEQMXJYYO1573-24-77 18:46:00 Test Item Value Reference Range Interpretation Comments Monocytes # (test code 0.5 See_Comment [Aut omated message] The = Monocytes #) system which generated this result tra nsmitted reference range : <=0.8. The reference r imtra was not used to int erpret this result as normal/abnormal . [facility] ShorelineUcnudetDWZURUPYKM1181-28-05 18:46:00 Test Item Value Reference Range Interpretation Comments Basophils (test code = 1.1 See_Comment [Aut omated message] The Basophils) system which ge nerated this result tra nsmitted reference range : <=1.0. The reference r mitra was not used to int erpret this result as normal/abnormal . [facility]lineWbmcvoyATVKQFOXIZ2634-29-95 18:46:00 Test Item Value Reference Range Interpretation Comments Lymphocytes # (test code = Lymphocytes 1.5 1.0-5.5 #) [facility]lineHzhnxpyFWPXOKZJKZ1850-66-41 18:46:00 Test Item Value Reference Range Interpretation Comments Segs-Bands # (test code = Segs-Bands #) 2.9 1.5-8.1 [facility]lineAlzmuuyLWTNVDJAKF8479-19-28 18:46:00 Test Item Value Reference Range Interpretation Comments Eosinophils # (test code 0.2 See_Comment [A utomated message] The = Eosinophils #) system whic h generated this result tra nsmitted reference range : <=0.5. The reference r mitra was not used to int erpret this result as normal/abnormal . [facility]lineWodetoxWZMRWAUTTZ1186-96-24 18:46:00 Test Item Value Reference Range Interpretation Comments Basophils # (test code 0.1 See_Comment [Aut omated message] The = Basophils #) system which generated this result tra nsmitted reference range : <=0.2. The reference r mitra was not used to int erpret this result as normal/abnormal . [facility]lineLrkagxsYQNFZWHIRJ5906-68-91 18:46:00 Test Item Value Reference Range Interpretation Comments PT (test code = PT) 11.2 s 12.0-14.7 [facility]lineTpvyzxbTBFLGRQQMW2968-11-26 18:46:00 Test Item Value Reference Range Interpretation Comments INR (test code = INR) 0.82 0.85-1.17 [facility]lineShteowhQZQXYNXTGI8796-00-86 18:46:00 Test Item Value Reference Range Interpretation Comments PTT (test code = PTT) 28.6 s 22.9-35.8 [facility]fhdyzhDZSFVRVBBH5387-97-32 18:46:00 Test Item Value Reference Range Interpretation Comments MPV (test code = MPV) 8.1 7.4-10.4 [facility] HospitalNkubjosMTVIAOKPUL0728-00-94 18:46:00 Test Item Value Reference Range Interpretation Comments Platelet (test code = Platelet) 301 133-450 [facility] HospitalKenxllxRZNEKXPXAI7192-05-78 18:46:00 Test Item Value Reference Range Interpretation Comments RDW (test code = RDW) 14.5 11.5-14.5 [facility] HospitalBsfsoiiACHPCYYRBP5644-54-07 18:46:00 Test Item Value Reference Range Interpretation Comments RBC (test code = RBC) 4.84 4.70-6.10 [facility] HospitalCnqkoteGHXYKJOHQT8760-97-92 18:46:00 Test Item Value Reference Range Interpretation Comments Hgb (test code = Hgb) 14.4 14.0-18.0 [facility] HospitalJldhfehMRBIAYDKVR7943-91-47 18:46:00 Test Item Value Reference Range Interpretation Comments WBC (test code = WBC) 5.2 3.7-10.4 [facility] HospitalDkzqrfkBSDAVLMJJH6259-99-22 18:46:00 Test Item Value Reference Range Interpretation Comments MCH (test code = MCH) 29.8 pg 27.0-31.0 [facility] HospitalIcvbgmcQLSCEXLWSO0612-68-61 18:46:00 Test Item Value Reference Range Interpretation Comments MCV (test code = MCV) 92.0 80.0-94.0 [facility]QmddinpLIAXEJIXLG9111-99-59 18:46:00 Test Item Value Reference Range Interpretation Comments Hct (test code = Hct) 44.5 42.0-54.0 [facility] HospitalQczoxtlDEVZORUYUL6081-91-07 18:46:00 Test Item Value Reference Range Interpretation Comments MCHC (test code = MCHC) 32.4 32.0-36.0 [facility] CenterAdljidrKHTCFSCMOJ2346-55-80 18:46:00 Test Item Value Reference Range Interpretation Comments [place]-Hep C Ab (test Negative *NA*(07/22/14 code = [place]-Hep C 1:46 PM) Ab) [facility] AND [id number] 18:46:00 Test Item Value Reference Range Interpretation Comments UA Urobilinogen (test code = UA <=1.0 mg/dL 0.1-1.0 Urobilinogen) [facility] AND [id number] 18:46:00 Test Item Value Reference Range Interpretation Comments UA Sq Epi (test code = UA Sq Epi) None Seen [facility] AND [id number] 18:46:00 Test Item Value Reference Range Interpretation Comments UA Leuk Est (test Negative (07/22/14 1:46 code = UA Leuk Est) PM) [facility] AND [id number] 18:46:00 Test Item Value Reference Range Interpretation Comments UA Nitrite (test code Negative (07/22/14 1:46 = UA Nitrite) PM) [facility] AND [id number] 18:46:00 Test Item Value Reference Range Interpretation Comments UA Blood (test code = Negative (07/22/14 1:46 UA Blood) PM) [facility] AND [id number] 18:46:00 Test Item Value Reference Range Interpretation Comments UA Ketones (test code = UA Negative mg/dL Ketones) [facility] AND [id number] 18:46:00 Test Item Value Reference Range Interpretation Comments UA Bili (test code = Negative *NA*(07/22/14 UA Bili) 1:46 PM) [facility] AND [id number] 18:46:00 Test Item Value Reference Range Interpretation Comments UA Bacteria (test code = UA Occasional /HPF Bacteria) [facility] AND [id number] 18:46:00 Test Item Value Reference Range Interpretation Comments UA RBC (test code = no gt See_Comment [Automa elizabeth message] The UA RBC) system which ge nerated this result transmit elizabeth reference range : <=2. The reference range was not used to interpr et this result as margaret l/abnormal. [facility] AND [id number] 18:46:00 Test Item Value Reference Range Interpretation Comments UA WBC (test code = 1 See_Comment [Automa elizabeth message] The UA WBC) system which ge nerated this result transmit elizabeth reference range : <=5. The reference range was not used to interpr et this result as margaret l/abnormal. [facility] AND [id number] 18:46:00 Test Item Value Reference Range Interpretation Comments UA Glucose (test code = UA Glucose) 30 mg/dL [facility] AND [id number] 18:46:00 Test Item Value Reference Range Interpretation Comments UA Protein (test code = UA Negative mg/dL Protein) [facility] AND [id number] 18:46:00 Test Item Value Reference Range Interpretation Comments UA pH (test code = UA pH) 6.5 5.0-8.[address] [facility] AND [id number] 18:46:00 Test Item Value Reference Range Interpretation Comments UA Turbidity (test code = Clear (07/22/14 1:46 UA Turbidity) PM) [facility] AND [id number] 18:46:00 Test Item Value Reference Range Interpretation Comments UA Spec Grav (test code = UA Spec Grav) 1.[address] [facility] AND [id number] 18:46:00 Test Item Value Reference Range Interpretation Comments UA Color (test code = Light Yellow UA Color) *NA*(07/22/14 1:46 PM) [facility] [id number] 18:46:00 Test Item Value Reference Range Interpretation Comments Magnesium Lvl (test code = Magnesium 1.8 1.8-2.4 Lvl) [facility] HospitalDpaxwsdVHVBYEJUWORK3104-11-28 18:46:00 Test Item Value Reference Range Interpretation Comments AGAP (test code = AGAP) 13.2 10.0-20.0 [facility] HospitalQybyvgnHEWAHCTJRIJT1876-14-94 18:46:00 Test Item Value Reference Range Interpretation Comments B/C Ratio (test code = B/C Ratio) 18 6-25 [facility] HospitalTwaxbhlHUIMEOZHGHBR2790-84-67 18:46:00 Test Item Value Reference Range Interpretation Comments A/G Ratio (test code = A/G Ratio) 1.1 0.7-1.6 [facility] HospitalDavpmdvYCDDMUYDIMRW2261-05-39 18:46:00 Test Item Value Reference Range Interpretation Comments Globulin (test code = Globulin) 3.3 2.0-4.0 [facility] HospitalAjsfuvmXGVAZZPTIIKD8065-58-81 18:46:00 Test Item Value Reference Range Interpretation Comments eGFR (test code = eGFR) 99 [facility] HospitalXxybwemDYPEJNLIKLMX0737-21-53 18:46:00 Test Item Value Reference Range Interpretation Comments Calcium Lvl (test code = Calcium Lvl) 9.0 8.5-10.5 [facility] HospitalEqiosbsAOUQCYUEBDZD6090-66-92 18:46:00 Test Item Value Reference Range Interpretation Comments Chloride Lvl (test code = Chloride Lvl) 106 95-109 [facility] HospitalJpktzkvKJBZWVEFXLGV0590-19-07 18:46:00 Test Item Value Reference Range Interpretation Comments Creatinine Lvl (test code = Creatinine 0.9 0.5-1.4 Lvl) [facility] HospitalFatngfnTBNGKLKYQUEC0822-98-07 18:46:00 Test Item Value Reference Range Interpretation Comments Potassium Lvl (test code = Potassium 4.2 3.5-5.1 Lvl) [facility] HospitalOdvwceaJFKAWBQIKQAT1742-74-63 18:46:00 Test Item Value Reference Range Interpretation Comments Sodium Lvl (test code = Sodium Lvl) 139 135-145 [facility] HospitalOfesesqIOCYHFLXZPYW1881-64-60 18:46:00 Test Item Value Reference Range Interpretation Comments CO2 (test code = CO2) 24 24-32 [facility] HospitalGqjncsaYLAIBIPOWQPS7094-32-62 18:46:00 Test Item Value Reference Range Interpretation Comments BUN (test code = BUN) 16 7-22 [facility] HospitalOicvjqoBBIRMDMMIWFL2860-73-11 18:46:00 Test Item Value Reference Range Interpretation Comments Glucose Lvl (test code = Glucose Lvl) 141 70-99 [facility] HospitalHyfotteYZKEVQVSBMPF0160-23-39 18:46:00 Test Item Value Reference Range Interpretation Comments Albumin Lvl (test code = Albumin Lvl) 3.6 3.5-5.0 [facility] HospitalZboydmxUIHTBURXDCZO3844-83-69 18:46:00 Test Item Value Reference Range Interpretation Comments Alk Phos (test code = Alk Phos) 65 39-136 [facility] HospitalKchxfizBTOKUWGODMOC5408-43-79 18:46:00 Test Item Value Reference Range Interpretation Comments Bili Total (test code = Bili Total) 0.3 0.2-1.3 [facility] HospitalNaeooemDOAJCGBWZNKY5300-53-32 18:46:00 Test Item Value Reference Range Interpretation Comments ALT (test code = ALT) 100 See_Comment [Auto mated message] The system which ge nerated this result transmit elizabeth reference range : <=65. The reference range was not used to interpr et this result as margaret l/abnormal. [facility] HospitalFcdxdptASECOSHXROBO2439-36-72 18:46:00 Test Item Value Reference Range Interpretation Comments AST (test code = AST) 53 See_Comment [Auto mated message] The system which ge nerated this result transmit elizabeth reference range : <=37. The reference range was not used to interpr et this result as margaret l/abnormal. [facility] HospitalKznatrjMJVYDTSOYGOW9008-22-96 18:46:00 Test Item Value Reference Range Interpretation Comments Total Protein (test code = Total 6.9 6.4-8.4 Protein) [facility]lineGnhysmiOJXYYBLWYP2222-45-92 18:46:00 Test Item Value Reference Range Interpretation Comments Eosinophils (test code = 4.2 See_Comment [A utomated message] The Eosinophils) system which ge nerated this result tra nsmitted reference range : <=4.0. The reference r mitra was not used to int erpret this result as normal/abnormal . [facility]lineObpasxnEIUGVURZJN5412-78-27 18:46:00 Test Item Value Reference Range Interpretation Comments Segs (test code = Segs) 56.4 45.0-75.0 [facility]lineWdlrnvbDZCFPAARAD9033-26-92 18:46:00 Test Item Value Reference Range Interpretation Comments Monocytes (test code = Monocytes) 10.3 2.0-12.0 [facility] ShorelineRbhsesfIZOGBDNLOW2552-16-37 18:46:00 Test Item Value Reference Range Interpretation Comments Lymphocytes (test code = Lymphocytes) 28.0 20.0-40.0 [facility]lineTncpmhuROAZQOMSGD2557-77-41 18:46:00 Test Item Value Reference Range Interpretation Comments Monocytes # (test code 0.5 See_Comment [Aut omated message] The = Monocytes #) system which generated this result tra nsmitted reference range : <=0.8. The reference r mitra was not used to int erpret this result as normal/abnormal . [facility]lineFihhebcWZYXVRFAJW5240-33-40 18:46:00 Test Item Value Reference Range Interpretation Comments Basophils (test code = 1.1 See_Comment [Aut omated message] The Basophils) system which ge nerated this result tra nsmitted reference range : <=1.0. The reference r mitra was not used to int erpret this result as normal/abnormal . [facility]lineAqvdtvsVSBCKTUMJP0385-49-05 18:46:00 Test Item Value Reference Range Interpretation Comments Lymphocytes # (test code = Lymphocytes 1.5 1.0-5.5 #) [facility]linePjfyrqkQMULWTKBQE1081-59-39 18:46:00 Test Item Value Reference Range Interpretation Comments Segs-Bands # (test code = Segs-Bands #) 2.9 1.5-8.1 [facility] ShorelineUlpitjiHNHWAYGQVX6811-77-50 18:46:00 Test Item Value Reference Range Interpretation Comments Eosinophils # (test code 0.2 See_Comment [A utomated message] The = Eosinophils #) system whic h generated this result tra nsmitted reference range : <=0.5. The reference r mitra was not used to int erpret this result as normal/abnormal . [facility]lineXvyatmrFQEHBIPABT8497-16-30 18:46:00 Test Item Value Reference Range Interpretation Comments Basophils # (test code 0.1 See_Comment [Aut omated message] The = Basophils #) system which generated this result tra nsmitted reference range : <=0.2. The reference r mitra was not used to int erpret this result as normal/abnormal . [facility]lineOhkknhbZBRQDEMLLE5233-60-37 18:46:00 Test Item Value Reference Range Interpretation Comments PT (test code = PT) 11.2 s 12.0-14.7 [facility]lineSnqtkksJWHCOGNJEE3205-01-36 18:46:00 Test Item Value Reference Range Interpretation Comments INR (test code = INR) 0.82 0.85-1.17 [facility]lineSmgtxbsNHJQTEMGGN8103-17-42 18:46:00 Test Item Value Reference Range Interpretation Comments PTT (test code = PTT) 28.6 s 22.9-35.8 [facility]lineVaqsrulXMJSWWVKHK5771-15-89 18:46:00 Test Item Value Reference Range Interpretation Comments MPV (test code = MPV) 8.1 7.4-10.4 [facility]lineQtgpmqfTXKRXKNAWW3689-06-33 18:46:00 Test Item Value Reference Range Interpretation Comments Platelet (test code = Platelet) 301 133-450 [facility]lineKszcziiTDGJBSJTAT4792-64-82 18:46:00 Test Item Value Reference Range Interpretation Comments RDW (test code = RDW) 14.5 11.5-14.5 [facility]lineXbjtmryYAJOSUWZHU4865-45-23 18:46:00 Test Item Value Reference Range Interpretation Comments RBC (test code = RBC) 4.84 4.70-6.10 [facility]lineSppzeiyQADUQHHOBJ6808-40-71 18:46:00 Test Item Value Reference Range Interpretation Comments Hgb (test code = Hgb) 14.4 14.0-18.0 [facility]lineCasuoblLPGRQSABYS8652-99-28 18:46:00 Test Item Value Reference Range Interpretation Comments WBC (test code = WBC) 5.2 3.7-10.4 [facility]lineOdunpnmTANJVNLQYP4460-32-20 18:46:00 Test Item Value Reference Range Interpretation Comments MCH (test code = MCH) 29.8 pg 27.0-31.0 [facility]lineHyrcbefCCMFYJJRRN3623-74-83 18:46:00 Test Item Value Reference Range Interpretation Comments MCV (test code = MCV) 92.0 80.0-94.0 [facility] ShorelineFtyvwhfFEKIQPARJF2451-46-12 18:46:00 Test Item Value Reference Range Interpretation Comments Hct (test code = Hct) 44.5 42.0-54.0 [facility]lineAjcxnywOLJVKGZJPL7218-05-18 18:46:00 Test Item Value Reference Range Interpretation Comments MCHC (test code = MCHC) 32.4 32.0-36.0 [facility] CenterZbwwonnXZTJKOYXWF1890-72-06 18:46:00 Test Item Value Reference Range Interpretation Comments Kanab-Hep C Ab (test Negative *NA*(07/22/14 code = Kanab-Hep C 1:46 PM) Ab) [facility] AND [id number] 18:46:00 Test Item Value Reference Range Interpretation Comments UA Urobilinogen (test code = UA <=1.0 mg/dL 0.1-1.0 Urobilinogen) [facility] AND [id number] 18:46:00 Test Item Value Reference Range Interpretation Comments UA Sq Epi (test code = UA Sq Epi) None Seen [facility] AND [id number] 18:46:00 Test Item Value Reference Range Interpretation Comments UA Leuk Est (test Negative (07/22/14 1:46 code = UA Leuk Est) PM) [facility] AND [id number] 18:46:00 Test Item Value Reference Range Interpretation Comments UA Nitrite (test code Negative (07/22/14 1:46 = UA Nitrite) PM) [facility] AND [id number] 18:46:00 Test Item Value Reference Range Interpretation Comments UA Blood (test code = Negative (07/22/14 1:46 UA Blood) PM) [facility] AND [id number] 18:46:00 Test Item Value Reference Range Interpretation Comments UA Ketones (test code = UA Negative mg/dL Ketones) [facility] AND [id number] 18:46:00 Test Item Value Reference Range Interpretation Comments UA Bili (test code = Negative *NA*(07/22/14 UA Bili) 1:46 PM) [facility] AND [id number] 18:46:00 Test Item Value Reference Range Interpretation Comments UA Bacteria (test code = UA Occasional /HPF Bacteria) [facility] AND [id number] 18:46:00 Test Item Value Reference Range Interpretation Comments UA RBC (test code = no gt See_Comment [Automa elizabeth message] The UA RBC) system which ge nerated this result transmit elizabeth reference range : <=2. The reference range was not used to interpr et this result as margaret l/abnormal. [facility] AND [id number] 18:46:00 Test Item Value Reference Range Interpretation Comments UA WBC (test code = 1 See_Comment [Automa elizabeth message] The UA WBC) system which ge nerated this result transmit elizabeth reference range : <=5. The reference range was not used to interpr et this result as margaret l/abnormal. [facility] AND [id number] 18:46:00 Test Item Value Reference Range Interpretation Comments UA Glucose (test code = UA Glucose) 30 mg/dL [facility] AND [id number] 18:46:00 Test Item Value Reference Range Interpretation Comments UA Protein (test code = UA Negative mg/dL Protein) [facility] AND [id number] 18:46:00 Test Item Value Reference Range Interpretation Comments UA pH (test code = UA pH) 6.5 5.0-8.[address] [facility] AND [id number] 18:46:00 Test Item Value Reference Range Interpretation Comments UA Turbidity (test code = Clear (07/22/14 1:46 UA Turbidity) PM) [facility] [id number] 18:46:00 Test Item Value Reference Range Interpretation Comments UA Spec Grav (test code = UA Spec Grav) 1.010 [facility] AND [id number] 18:46:00 Test Item Value Reference Range Interpretation Comments UA Color (test code = Light Yellow UA Color) *NA*(07/22/14 1:46 PM) [facility] CrissannCHEM [id number] 18:46:00 Test Item Value Reference Range Interpretation Comments Magnesium Lvl (test code = Magnesium 1.8 1.8-2.4 Lvl) [facility]XitadvjHAQTMIKZGBFM5054-40-90 18:46:00 Test Item Value Reference Range Interpretation Comments AGAP (test code = AGAP) 13.2 10.0-20.0 [facility] HospitalSrrbvkhRWBONSKVSNNR9688-65-44 18:46:00 Test Item Value Reference Range Interpretation Comments B/C Ratio (test code = B/C Ratio) 18 6-25 [facility] HospitalVbzbezkZZDISVKAGIXZ2775-34-98 18:46:00 Test Item Value Reference Range Interpretation Comments A/G Ratio (test code = A/G Ratio) 1.1 0.7-1.6 [facility] HospitalEdrblzoPHVFZLBTQLSO3842-65-38 18:46:00 Test Item Value Reference Range Interpretation Comments Globulin (test code = Globulin) 3.3 2.0-4.0 [facility] HospitalCbrcfxaKNBCKTGCAAYK1434-61-10 18:46:00 Test Item Value Reference Range Interpretation Comments eGFR (test code = eGFR) 99 [facility] HospitalTvjncbtHXUPKQQFLOSF7102-17-52 18:46:00 Test Item Value Reference Range Interpretation Comments Calcium Lvl (test code = Calcium Lvl) 9.0 8.5-10.5 [facility] HospitalAblddavNAQHTKEGJHVL6642-18-29 18:46:00 Test Item Value Reference Range Interpretation Comments Chloride Lvl (test code = Chloride Lvl) 106 95-109 [facility] HospitalUzwtcwzBOPOXISWVAFE0629-08-63 18:46:00 Test Item Value Reference Range Interpretation Comments Creatinine Lvl (test code = Creatinine 0.9 0.5-1.4 Lvl) [facility] HospitalVojoviuOJZSZEBRGQFY4846-23-99 18:46:00 Test Item Value Reference Range Interpretation Comments Potassium Lvl (test code = Potassium 4.2 3.5-5.1 Lvl) [facility] HospitalQfunchjZLTFHZMOMPYX2451-97-26 18:46:00 Test Item Value Reference Range Interpretation Comments Sodium Lvl (test code = Sodium Lvl) 139 135-145 [facility] HospitalMaugjcmMLHMNGMZGUOQ9619-73-41 18:46:00 Test Item Value Reference Range Interpretation Comments CO2 (test code = CO2) 24 24-32 [facility] HospitalEhtkeecEXWNWLWASUHL5749-40-58 18:46:00 Test Item Value Reference Range Interpretation Comments BUN (test code = BUN) 16 7-22 [facility] HospitalVcvosiwKKEERWQWKTOK8210-91-94 18:46:00 Test Item Value Reference Range Interpretation Comments Glucose Lvl (test code = Glucose Lvl) 141 70-99 [facility] HospitalKibcyriFXRNQPVYOZHF8499-74-59 18:46:00 Test Item Value Reference Range Interpretation Comments Albumin Lvl (test code = Albumin Lvl) 3.6 3.5-5.0 [facility] HospitalDxaxbuzKIHTPWIXVDMR0257-63-22 18:46:00 Test Item Value Reference Range Interpretation Comments Alk Phos (test code = Alk Phos) 65 39-136 [facility] HospitalCsgrideORDIADYPYLDV8535-40-32 18:46:00 Test Item Value Reference Range Interpretation Comments Bili Total (test code = Bili Total) 0.3 0.2-1.3 [facility] HospitalJpyeldaCUKQOGNLVYXR9487-36-53 18:46:00 Test Item Value Reference Range Interpretation Comments ALT (test code = ALT) 100 See_Comment [Auto mated message] The system which ge nerated this result transmit elizabeth reference range : <=65. The reference range was not used to interpr et this result as margaret l/abnormal. [facility] HospitalLmoaccbSVDDLNYQDVFX4901-94-01 18:46:00 Test Item Value Reference Range Interpretation Comments AST (test code = AST) 53 See_Comment [Auto mated message] The system which ge nerated this result transmit elizabeth reference range : <=37. The reference range was not used to interpr et this result as margaret l/abnormal. [facility] HospitalDxmqgwiARHXTNBNTKIN2023-95-09 18:46:00 Test Item Value Reference Range Interpretation Comments Total Protein (test code = Total 6.9 6.4-8.4 Protein) [facility] CenterUibqrazCKCYKGXIBR7662-36-50 18:46:00 Test Item Value Reference Range Interpretation Comments Eosinophils (test code = 4.2 See_Comment [A utomated message] The Eosinophils) system which ge nerated this result tra nsmitted reference range : <=4.0. The reference r mitra was not used to int erpret this result as normal/abnormal . [facility]lineDamkjedPMHWKBDEUI9140-96-99 18:46:00 Test Item Value Reference Range Interpretation Comments Segs (test code = Segs) 56.4 45.0-75.0 [facility]lineKrfolyrCGWEGDEZTB3114-04-82 18:46:00 Test Item Value Reference Range Interpretation Comments Monocytes (test code = Monocytes) 10.3 2.0-12.0 [facility]lineDufjwauSVTZKBPCWD3050-49-62 18:46:00 Test Item Value Reference Range Interpretation Comments Lymphocytes (test code = Lymphocytes) 28.0 20.0-40.0 [facility]lineYqswvibRZHJNELMZE3952-36-26 18:46:00 Test Item Value Reference Range Interpretation Comments Monocytes # (test code 0.5 See_Comment [Aut omated message] The = Monocytes #) system which generated this result tra nsmitted reference range : <=0.8. The reference r mitra was not used to int erpret this result as normal/abnormal . [facility]lineUhcabudZEVVPKVHPV8294-59-38 18:46:00 Test Item Value Reference Range Interpretation Comments Basophils (test code = 1.1 See_Comment [Aut omated message] The Basophils) system which ge nerated this result tra nsmitted reference range : <=1.0. The reference r mitra was not used to int erpret this result as normal/abnormal . [facility]lineXpcxglyROOOUSEIET9957-43-24 18:46:00 Test Item Value Reference Range Interpretation Comments Lymphocytes # (test code = Lymphocytes 1.5 1.0-5.5 #) [facility]lineXxurqxoGVQFHXGEIL2554-52-33 18:46:00 Test Item Value Reference Range Interpretation Comments Segs-Bands # (test code = Segs-Bands #) 2.9 1.5-8.1 [facility]lineOiadzfoYFDABFITMS7035-83-81 18:46:00 Test Item Value Reference Range Interpretation Comments Eosinophils # (test code 0.2 See_Comment [A utomated message] The = Eosinophils #) system whic h generated this result tra nsmitted reference range : <=0.5. The reference r mitra was not used to int erpret this result as normal/abnormal . [facility]lineRmydwtdVRNMJSAWBG2136-73-03 18:46:00 Test Item Value Reference Range Interpretation Comments Basophils # (test code 0.1 See_Comment [Aut omated message] The = Basophils #) system which generated this result tra nsmitted reference range : <=0.2. The reference r mitra was not used to int erpret this result as normal/abnormal . [facility]lineKpvfprgIAFBHDJCBT6367-38-77 18:46:00 Test Item Value Reference Range Interpretation Comments PT (test code = PT) 11.2 s 12.0-14.7 [facility]lineSvlnmifTLMQWNUGKY7398-24-18 18:46:00 Test Item Value Reference Range Interpretation Comments INR (test code = INR) 0.82 0.85-1.17 [facility]lineZjxugobOJBCWKAAFA3884-39-54 18:46:00 Test Item Value Reference Range Interpretation Comments PTT (test code = PTT) 28.6 s 22.9-35.8 [facility]lineFewjntwCWHGKUQBXJ6164-19-84 18:46:00 Test Item Value Reference Range Interpretation Comments MPV (test code = MPV) 8.1 7.4-10.4 [facility]lineFtqcptjDRVLDGXHTT0577-59-00 18:46:00 Test Item Value Reference Range Interpretation Comments Platelet (test code = Platelet) 301 133-450 [facility]lineOyabqmePPESRXGSED1407-69-42 18:46:00 Test Item Value Reference Range Interpretation Comments RDW (test code = RDW) 14.5 11.5-14.5 [facility]lineNhlzskeHCSIBWPWXA9664-00-60 18:46:00 Test Item Value Reference Range Interpretation Comments RBC (test code = RBC) 4.84 4.70-6.10 [facility]lineLrhcuknXINXGDBQGU1375-62-06 18:46:00 Test Item Value Reference Range Interpretation Comments Hgb (test code = Hgb) 14.4 14.0-18.0 [facility]lineLfsdgjkUMGPADLASD6475-86-33 18:46:00 Test Item Value Reference Range Interpretation Comments WBC (test code = WBC) 5.2 3.7-10.4 [facility]linePwqqppaROLYHERRIR9003-48-55 18:46:00 Test Item Value Reference Range Interpretation Comments MCH (test code = MCH) 29.8 pg 27.0-31.0 [facility] BbrskjkXAQLDQTYMD9437-65-89 18:46:00 Test Item Value Reference Range Interpretation Comments MCV (test code = MCV) 92.0 80.0-94.0 [facility] UtwiqwsMDBQGJZTIA4776-80-41 18:46:00 Test Item Value Reference Range Interpretation Comments Hct (test code = Hct) 44.5 42.0-54.0 [facility] CenterTllgyvdWYOURAOHUM0311-11-79 18:46:00 Test Item Value Reference Range Interpretation Comments MCHC (test code = MCHC) 32.4 32.0-36.0 [facility] CenterLhjighpWRJNSHAUWW6055-44-14 18:46:00 Test Item Value Reference Range Interpretation Comments Kan[place]-Hep C Ab (test Negative *NA*(07/22/14 code = Kan[place]-Hep C 1:46 PM) Ab) [facility] AND [id number] 18:46:00 Test Item Value Reference Range Interpretation Comments UA Urobilinogen (test code = UA <=1.0 mg/dL 0.1-1.0 Urobilinogen) [facility] AND [id number] 18:46:00 Test Item Value Reference Range Interpretation Comments UA Sq Epi (test code = UA Sq Epi) None Seen [facility] AND [id number] 18:46:00 Test Item Value Reference Range Interpretation Comments UA Leuk Est (test Negative (07/22/14 1:46 code = UA Leuk Est) PM) [facility] AND [id number] 18:46:00 Test Item Value Reference Range Interpretation Comments UA Nitrite (test code Negative (07/22/14 1:46 = UA Nitrite) PM) [facility] AND [id number] 18:46:00 Test Item Value Reference Range Interpretation Comments UA Blood (test code = Negative (07/22/14 1:46 UA Blood) PM) [facility] AND [id number] 18:46:00 Test Item Value Reference Range Interpretation Comments UA Ketones (test code = UA Negative mg/dL Ketones) [facility] AND [id number] 18:46:00 Test Item Value Reference Range Interpretation Comments UA Bili (test code = Negative *NA*(07/22/14 UA Bili) 1:46 PM) [facility] [id number] 18:46:00 Test Item Value Reference Range Interpretation Comments UA Bacteria (test code = UA Occasional /HPF Bacteria) [facility] [id number] 18:46:00 Test Item Value Reference Range Interpretation Comments UA RBC (test code = no gt See_Comment [Automa elizabeth message] The UA RBC) system which ge nerated this result transmit elizabeth reference range : <=2. The reference range was not used to interpr et this result as margaret l/abnormal. [facility] [id number] 18:46:00 Test Item Value Reference Range Interpretation Comments UA WBC (test code = 1 See_Comment [Automa elizabeth message] The UA WBC) system which ge nerated this result transmit elizabeth reference range : <=5. The reference range was not used to interpr et this result as margaret l/abnormal. [facility] [id number] 18:46:00 Test Item Value Reference Range Interpretation Comments UA Glucose (test code = UA Glucose) 30 mg/dL [facility] [id number] 18:46:00 Test Item Value Reference Range Interpretation Comments UA Protein (test code = UA Negative mg/dL Protein) [facility] [id number] 18:46:00 Test Item Value Reference Range Interpretation Comments UA pH (test code = UA pH) 6.5 5.0-8.0 [facility] [id number] 18:46:00 Test Item Value Reference Range Interpretation Comments UA Turbidity (test code = Clear (07/22/14 1:46 UA Turbidity) PM) [facility] [id number] 18:46:00 Test Item Value Reference Range Interpretation Comments UA Spec Grav (test code = UA Spec Grav) 1.010 [facility] [id number] 18:46:00 Test Item Value Reference Range Interpretation Comments UA Color (test code = Light Yellow UA Color) *NA*(07/22/14 1:46 PM) [facility]CHE[facility] [id number] 18:46:00 Test Item Value Reference Range Interpretation Comments Magnesium Lvl (test code = Magnesium 1.8 1.8-2.4 Lvl) [facility] RoxdurcYXFXXWHAOPZP0285-90-62 18:46:00 Test Item Value Reference Range Interpretation Comments AGAP (test code = AGAP) 13.2 10.0-20.0 [facility] HospitalUthxqttTTWDKEFUDVWX0711-30-23 18:46:00 Test Item Value Reference Range Interpretation Comments B/C Ratio (test code = B/C Ratio) 18 6-25 [facility] HospitalQxmihxrJDGPHSHVMLKG3966-88-40 18:46:00 Test Item Value Reference Range Interpretation Comments A/G Ratio (test code = A/G Ratio) 1.1 0.7-1.6 [facility] HospitalDfmrrjwOWIZSELUVLRG0103-62-38 18:46:00 Test Item Value Reference Range Interpretation Comments Globulin (test code = Globulin) 3.3 2.0-4.0 [facility] HospitalSuyoqktAJKKFCEKNQEH1102-41-37 18:46:00 Test Item Value Reference Range Interpretation Comments eGFR (test code = eGFR) 99 [facility] HospitalYqxsespSFOKLKDGBVPU4742-41-11 18:46:00 Test Item Value Reference Range Interpretation Comments Calcium Lvl (test code = Calcium Lvl) 9.0 8.5-10.5 [facility] HospitalEhkesyuFEDYKNBZOIEB6707-29-61 18:46:00 Test Item Value Reference Range Interpretation Comments Chloride Lvl (test code = Chloride Lvl) 106 95-109 [facility] HospitalMhkjjjjGJFOCMXJFPFX1315-17-39 18:46:00 Test Item Value Reference Range Interpretation Comments Creatinine Lvl (test code = Creatinine 0.9 0.5-1.4 Lvl) [facility] HospitalFejfnzdGSMGDORAWTVY2921-17-68 18:46:00 Test Item Value Reference Range Interpretation Comments Potassium Lvl (test code = Potassium 4.2 3.5-5.1 Lvl) [facility] HospitalHdkoovvHEIXNKZYCXQW5329-78-68 18:46:00 Test Item Value Reference Range Interpretation Comments Sodium Lvl (test code = Sodium Lvl) 139 135-145 [facility] HospitalKdgtgwrOBDWCTWKFJUX9947-98-35 18:46:00 Test Item Value Reference Range Interpretation Comments CO2 (test code = CO2) 24 24-32 [facility] HospitalYefjqkdJAOWHDIRZEZJ9614-51-81 18:46:00 Test Item Value Reference Range Interpretation Comments BUN (test code = BUN) 16 7-22 [facility] HospitalDuakynhWMKIMNXKGSBO8280-85-33 18:46:00 Test Item Value Reference Range Interpretation Comments Glucose Lvl (test code = Glucose Lvl) 141 70-99 [facility] HospitalMymhqncOVOJFPZDGAZN2026-15-25 18:46:00 Test Item Value Reference Range Interpretation Comments Albumin Lvl (test code = Albumin Lvl) 3.6 3.5-5.0 [facility] HospitalTjmkonqOMDWTFEKFSZQ2210-59-55 18:46:00 Test Item Value Reference Range Interpretation Comments Alk Phos (test code = Alk Phos) 65 39-136 [facility] HospitalEuygedbRLHDNDLFZAPN6496-32-74 18:46:00 Test Item Value Reference Range Interpretation Comments Bili Total (test code = Bili Total) 0.3 0.2-1.3 [facility] HospitalBuevkphPLJPLXVMUWCH7587-33-74 18:46:00 Test Item Value Reference Range Interpretation Comments ALT (test code = ALT) 100 See_Comment [Auto mated message] The system which ge nerated this result transmit elizabeth reference range : <=65. The reference range was not used to interpr et this result as margaret l/abnormal. [facility] HospitalUjngjjaGXTVDJIMTPUI1238-28-50 18:46:00 Test Item Value Reference Range Interpretation Comments AST (test code = AST) 53 See_Comment [Auto mated message] The system which ge nerated this result transmit elizabeth reference range : <=37. The reference range was not used to interpr et this result as margaret l/abnormal. [facility] HospitalKljfzuaNKDQVPJOOXWK8785-04-86 18:46:00 Test Item Value Reference Range Interpretation Comments Total Protein (test code = Total 6.9 6.4-8.4 Protein) [facility]lineYafoevoENBEDEMSPW4575-32-16 18:46:00 Test Item Value Reference Range Interpretation Comments Eosinophils (test code = 4.2 See_Comment [A utomated message] The Eosinophils) system which ge nerated this result tra nsmitted reference range : <=4.0. The reference r mitra was not used to int erpret this result as normal/abnormal . [facility]lineIhpewxpXXBTFIECRI1536-06-43 18:46:00 Test Item Value Reference Range Interpretation Comments Segs (test code = Segs) 56.4 45.0-75.0 [facility]lineWtfsiilIMOGJPFSYE0648-04-76 18:46:00 Test Item Value Reference Range Interpretation Comments Monocytes (test code = Monocytes) 10.3 2.0-12.0 [facility]lineBzuljgvWEKTZWCZMN1712-28-58 18:46:00 Test Item Value Reference Range Interpretation Comments Lymphocytes (test code = Lymphocytes) 28.0 20.0-40.0 [facility]lineFgzfkkhYZFDHDVGAJ4141-69-29 18:46:00 Test Item Value Reference Range Interpretation Comments Monocytes # (test code 0.5 See_Comment [Aut omated message] The = Monocytes #) system which generated this result tra nsmitted reference range : <=0.8. The reference r mitra was not used to int erpret this result as normal/abnormal . [facility] ShorelineSyonmvpABDMGKCSOH0988-02-86 18:46:00 Test Item Value Reference Range Interpretation Comments Basophils (test code = 1.1 See_Comment [Aut omated message] The Basophils) system which ge nerated this result tra nsmitted reference range : <=1.0. The reference r mitra was not used to int erpret this result as normal/abnormal . [facility]lineFyaifkiHHWGGZFJKY4853-92-57 18:46:00 Test Item Value Reference Range Interpretation Comments Lymphocytes # (test code = Lymphocytes 1.5 1.0-5.5 #) [facility] ShorelineIpkpbpsLURSUWRUXT9708-56-71 18:46:00 Test Item Value Reference Range Interpretation Comments Segs-Bands # (test code = Segs-Bands #) 2.9 1.5-8.1 [facility]lineWmgikobLXLDUMQKKP8532-79-31 18:46:00 Test Item Value Reference Range Interpretation Comments Eosinophils # (test code 0.2 See_Comment [A utomated message] The = Eosinophils #) system ic h generated this result tra nsmitted reference range : <=0.5. The reference r mitra was not used to int erpret this result as normal/abnormal . [facility]lineIjelbpbJJSEBVTXWD8276-93-51 18:46:00 Test Item Value Reference Range Interpretation Comments Basophils # (test code 0.1 See_Comment [Aut omated message] The = Basophils #) system which generated this result tra nsmitted reference range : <=0.2. The reference r mitra was not used to int erpret this result as normal/abnormal . [facility] ShorelineSozoajjCMVICBGBUT7818-36-30 18:46:00 Test Item Value Reference Range Interpretation Comments PT (test code = PT) 11.2 s 12.0-14.7 [facility]lineHobftoqHVRWFFRNZZ9638-54-04 18:46:00 Test Item Value Reference Range Interpretation Comments INR (test code = INR) 0.82 0.85-1.17 [facility] ShorelineQgyxlucIVDHSSYZSZ8375-85-81 18:46:00 Test Item Value Reference Range Interpretation Comments PTT (test code = PTT) 28.6 s 22.9-35.8 [facility] ShorelineJhbanusALIMUZVKZO0303-89-48 18:46:00 Test Item Value Reference Range Interpretation Comments MPV (test code = MPV) 8.1 7.4-10.4 [facility]lineMeqlxfmZHZHSGKHBU3852-49-13 18:46:00 Test Item Value Reference Range Interpretation Comments Platelet (test code = Platelet) 301 133-450 [facility]lineQsvjtxyWXFGOWIKAI7166-00-38 18:46:00 Test Item Value Reference Range Interpretation Comments RDW (test code = RDW) 14.5 11.5-14.5 [facility]lineEqjkfsbOVARXETRBD5685-38-65 18:46:00 Test Item Value Reference Range Interpretation Comments RBC (test code = RBC) 4.84 4.70-6.10 [facility]lineJbrzegjPMDSKICSQO2055-75-39 18:46:00 Test Item Value Reference Range Interpretation Comments Hgb (test code = Hgb) 14.4 14.0-18.0 [facility] ShorelineRwatyzyBICLOPINAX1815-28-44 18:46:00 Test Item Value Reference Range Interpretation Comments WBC (test code = WBC) 5.2 3.7-10.4 [facility] ShorelineBgsorosTLQCYFFXHL7025-11-86 18:46:00 Test Item Value Reference Range Interpretation Comments MCH (test code = MCH) 29.8 pg 27.0-31.0 [facility] ShorelineBlutsqpYTGRWJYCRE4622-79-50 18:46:00 Test Item Value Reference Range Interpretation Comments MCV (test code = MCV) 92.0 80.0-94.0 [facility]linePjlvhjzEEDGUVEBRT3948-51-78 18:46:00 Test Item Value Reference Range Interpretation Comments Hct (test code = Hct) 44.5 42.0-54.0 [facility] ShorelineCfmrmuoFNGTZCTZJN6340-04-89 18:46:00 Test Item Value Reference Range Interpretation Comments MCHC (test code = MCHC) 32.4 32.0-36.0 [place] [id number] 18:46:00 Test Item Value Reference Range Interpretation Comments Kanab-Hep C Ab (test Negative *NA*(07/22/14 code = Kanab-Hep C 1:46 PM) Ab) [facility] AND [id number] 18:46:00 Test Item Value Reference Range Interpretation Comments UA Urobilinogen (test code = UA <=1.0 mg/dL 0.1-1.0 Urobilinogen) [facility] AND [id number] 18:46:00 Test Item Value Reference Range Interpretation Comments UA Sq Epi (test code = UA Sq Epi) None Seen [facility] AND [id number] 18:46:00 Test Item Value Reference Range Interpretation Comments UA Leuk Est (test Negative (07/22/14 1:46 code = UA Leuk Est) PM) [facility] AND [id number] 18:46:00 Test Item Value Reference Range Interpretation Comments UA Nitrite (test code Negative (07/22/14 1:46 = UA Nitrite) PM) [facility] AND [id number] 18:46:00 Test Item Value Reference Range Interpretation Comments UA Blood (test code = Negative (07/22/14 1:46 UA Blood) PM) [facility] AND [id number] 18:46:00 Test Item Value Reference Range Interpretation Comments UA Ketones (test code = UA Negative mg/dL Ketones) [facility] AND [id number] 18:46:00 Test Item Value Reference Range Interpretation Comments UA Bili (test code = Negative *NA*(07/22/14 UA Bili) 1:46 PM) [facility] AND [id number] 18:46:00 Test Item Value Reference Range Interpretation Comments UA Bacteria (test code = UA Occasional /HPF Bacteria) [facility] AND [id number] 18:46:00 Test Item Value Reference Range Interpretation Comments UA RBC (test code = no gt See_Comment [Automa elizabeth message] The UA RBC) system which ge nerated this result transmit elizabeth reference range : <=2. The reference range was not used to interpr et this result as margaret l/abnormal. [facility] AND [id number] 18:46:00 Test Item Value Reference Range Interpretation Comments UA WBC (test code = 1 See_Comment [Automa elizabeth message] The UA WBC) system which ge nerated this result transmit elizabeth reference range : <=5. The reference range was not used to interpr et this result as margaret l/abnormal. [facility] AND [id number] 18:46:00 Test Item Value Reference Range Interpretation Comments UA Glucose (test code = UA Glucose) 30 mg/dL [facility] AND [id number] 18:46:00 Test Item Value Reference Range Interpretation Comments UA Protein (test code = UA Negative mg/dL Protein) [facility] AND [id number] 18:46:00 Test Item Value Reference Range Interpretation Comments UA pH (test code = UA pH) 6.5 5.0-8.[address] [facility] AND [id number] 18:46:00 Test Item Value Reference Range Interpretation Comments UA Turbidity (test code = Clear (07/22/14 1:46 UA Turbidity) PM) [facility] AND [id number] 18:46:00 Test Item Value Reference Range Interpretation Comments UA Spec Grav (test code = UA Spec Grav) 1.[address] [facility] AND [id number] 18:46:00 Test Item Value Reference Range Interpretation Comments UA Color (test code = Light Yellow UA Color) *NA*(07/22/14 1:46 PM) [facility] [id number] 18:46:00 Test Item Value Reference Range Interpretation Comments Magnesium Lvl (test code = Magnesium 1.8 1.8-2.4 Lvl) [facility]OqsqtmnWVYHCJKLPSIV8669-43-79 18:46:00 Test Item Value Reference Range Interpretation Comments AGAP (test code = AGAP) 13.2 10.0-20.0 [facility] HospitalRjffusoYPFMNTQNTUQF1790-42-25 18:46:00 Test Item Value Reference Range Interpretation Comments B/C Ratio (test code = B/C Ratio) 18 6-25 [facility] HospitalBqnqiztOXGBIFPNLSUC3476-67-35 18:46:00 Test Item Value Reference Range Interpretation Comments A/G Ratio (test code = A/G Ratio) 1.1 0.7-1.6 [facility] HospitalDhawfliLCZCOPMNKEXL3022-41-80 18:46:00 Test Item Value Reference Range Interpretation Comments Globulin (test code = Globulin) 3.3 2.0-4.0 [facility] HospitalLalbqmmXODXFLSJDHXH7303-01-48 18:46:00 Test Item Value Reference Range Interpretation Comments eGFR (test code = eGFR) 99 [facility] HospitalVtzitriRKAKHGNVOVTH0245-46-53 18:46:00 Test Item Value Reference Range Interpretation Comments Calcium Lvl (test code = Calcium Lvl) 9.0 8.5-10.5 [facility] HospitalOydczydCPSHGMOTTIYS1384-56-88 18:46:00 Test Item Value Reference Range Interpretation Comments Chloride Lvl (test code = Chloride Lvl) 106 95-109 [facility] HospitalQzsgcvsYAVWFXFYQCCY2657-63-00 18:46:00 Test Item Value Reference Range Interpretation Comments Creatinine Lvl (test code = Creatinine 0.9 0.5-1.4 Lvl) [facility] HospitalUfamfwqCYMFKEKFMVLZ9474-52-17 18:46:00 Test Item Value Reference Range Interpretation Comments Potassium Lvl (test code = Potassium 4.2 3.5-5.1 Lvl) [facility] HospitalEwwfjcmPNNSCEWWCGMO6947-55-93 18:46:00 Test Item Value Reference Range Interpretation Comments Sodium Lvl (test code = Sodium Lvl) 139 135-145 [facility] HospitalYlfqkycBCPINHBYTVHS9865-37-65 18:46:00 Test Item Value Reference Range Interpretation Comments CO2 (test code = CO2) 24 24-32 [facility] HospitalZvacbizCTRQDZDVERKV8751-01-91 18:46:00 Test Item Value Reference Range Interpretation Comments BUN (test code = BUN) 16 7-22 [facility] HospitalVdphuxjURMPHBUFSLDR2935-31-32 18:46:00 Test Item Value Reference Range Interpretation Comments Glucose Lvl (test code = Glucose Lvl) 141 70-99 [facility] HospitalBcmygwdRCHKGVEPXZIO8408-98-27 18:46:00 Test Item Value Reference Range Interpretation Comments Albumin Lvl (test code = Albumin Lvl) 3.6 3.5-5.0 [facility] HospitalKfanaxqPCRIRIBSFUOV7703-41-08 18:46:00 Test Item Value Reference Range Interpretation Comments Alk Phos (test code = Alk Phos) 65 39-136 [facility] HospitalZxkojzjUOZVDVFCNZGS2400-30-11 18:46:00 Test Item Value Reference Range Interpretation Comments Bili Total (test code = Bili Total) 0.3 0.2-1.3 [facility] HospitalPuljtlgNSLUBHOBBYCK1361-86-51 18:46:00 Test Item Value Reference Range Interpretation Comments ALT (test code = ALT) 100 See_Comment [Auto mated message] The system which ge nerated this result transmit elizabeth reference range : <=65. The reference range was not used to interpr et this result as margaret l/abnormal. [facility] HospitalLbudkfhQJQOFVEQKPVD2729-87-07 18:46:00 Test Item Value Reference Range Interpretation Comments AST (test code = AST) 53 See_Comment [Auto mated message] The system which ge nerated this result transmit elizabeth reference range : <=37. The reference range was not used to interpr et this result as margaret l/abnormal. [facility] HospitalItrgsdbGCHYQVVVTVFU3975-65-97 18:46:00 Test Item Value Reference Range Interpretation Comments Total Protein (test code = Total 6.9 6.4-8.4 Protein) [facility]lineGrljdinNSBDPKILFR4293-77-45 18:46:00 Test Item Value Reference Range Interpretation Comments Eosinophils (test code = 4.2 See_Comment [A utomated message] The Eosinophils) system which ge nerated this result tra nsmitted reference range : <=4.0. The reference r mitra was not used to int erpret this result as normal/abnormal . [facility]lineUydlsghGBADGOMFLW6196-47-06 18:46:00 Test Item Value Reference Range Interpretation Comments Segs (test code = Segs) 56.4 45.0-75.0 [facility]lineHxspecbDSDPLAXYJW5531-85-98 18:46:00 Test Item Value Reference Range Interpretation Comments Monocytes (test code = Monocytes) 10.3 2.0-12.0 [facility]lineUhtbnpxBNSJRWPGLF4207-34-10 18:46:00 Test Item Value Reference Range Interpretation Comments Lymphocytes (test code = Lymphocytes) 28.0 20.0-40.0 [facility]lineKexqfavFCTJDWVGXB5075-61-34 18:46:00 Test Item Value Reference Range Interpretation Comments Monocytes # (test code 0.5 See_Comment [Aut omated message] The = Monocytes #) system which generated this result tra nsmitted reference range : <=0.8. The reference r mitra was not used to int erpret this result as normal/abnormal . [facility]lineHdvepovUYWAYWNJXU6406-70-89 18:46:00 Test Item Value Reference Range Interpretation Comments Basophils (test code = 1.1 See_Comment [Aut omated message] The Basophils) system which ge nerated this result tra nsmitted reference range : <=1.0. The reference r mitra was not used to int erpret this result as normal/abnormal . [facility]lineBvxwxgpNEHNNTKVIO8954-75-20 18:46:00 Test Item Value Reference Range Interpretation Comments Lymphocytes # (test code = Lymphocytes 1.5 1.0-5.5 #) [facility] ShorelineDgnazagMSSTKZCZMP5711-12-42 18:46:00 Test Item Value Reference Range Interpretation Comments Segs-Bands # (test code = Segs-Bands #) 2.9 1.5-8.1 [facility]lineHqgmaxkXAYAXVRKEI6825-19-88 18:46:00 Test Item Value Reference Range Interpretation Comments Eosinophils # (test code 0.2 See_Comment [A utomated message] The = Eosinophils #) system whic h generated this result tra nsmitted reference range : <=0.5. The reference r mitra was not used to int erpret this result as normal/abnormal . [facility] ShorelineZhfixzcHLONGIINFQ8773-78-81 18:46:00 Test Item Value Reference Range Interpretation Comments Basophils # (test code 0.1 See_Comment [Aut omated message] The = Basophils #) system which generated this result tra nsmitted reference range : <=0.2. The reference r mitra was not used to int erpret this result as normal/abnormal . [facility]lineJfpmiwsJJNOQAKWBX0779-14-08 18:46:00 Test Item Value Reference Range Interpretation Comments PT (test code = PT) 11.2 s 12.0-14.7 [facility]lineFxhwhbfBPOOGSHTOK4773-17-32 18:46:00 Test Item Value Reference Range Interpretation Comments INR (test code = INR) 0.82 0.85-1.17 [facility]lineEatelgkDPXGYDSNZB5485-90-12 18:46:00 Test Item Value Reference Range Interpretation Comments PTT (test code = PTT) 28.6 s 22.9-35.8 [facility]lineJpprwupRVHWXWPQRC5148-39-23 18:46:00 Test Item Value Reference Range Interpretation Comments MPV (test code = MPV) 8.1 7.4-10.4 [facility]lineJrhgxebLMQQDEMNLN3889-68-95 18:46:00 Test Item Value Reference Range Interpretation Comments Platelet (test code = Platelet) 301 133-450 [facility]lineQkhwzqoZPCFGEHEBE8504-46-96 18:46:00 Test Item Value Reference Range Interpretation Comments RDW (test code = RDW) 14.5 11.5-14.5 [facility]lineOogynirSBSKMUJMHF6472-48-49 18:46:00 Test Item Value Reference Range Interpretation Comments RBC (test code = RBC) 4.84 4.70-6.10 [facility]lineIopjnbbFGELUYHURB9059-98-87 18:46:00 Test Item Value Reference Range Interpretation Comments Hgb (test code = Hgb) 14.4 14.0-18.0 [facility]linePjcttsxYLWRGAOAOX3090-64-38 18:46:00 Test Item Value Reference Range Interpretation Comments WBC (test code = WBC) 5.2 3.7-10.4 [facility]lineAfyaaknJCGOYKXRGV3397-40-11 18:46:00 Test Item Value Reference Range Interpretation Comments MCH (test code = MCH) 29.8 pg 27.0-31.0 [facility]lineWxeqmjrWUFHKRKVII4944-41-50 18:46:00 Test Item Value Reference Range Interpretation Comments MCV (test code = MCV) 92.0 80.0-94.0 [facility]linePmcbpxhALBRYMZQNJ8248-59-63 18:46:00 Test Item Value Reference Range Interpretation Comments Hct (test code = Hct) 44.5 42.0-54.0 [facility]lineIxegywoGOEJQGQVUT1760-19-56 18:46:00 Test Item Value Reference Range Interpretation Comments MCHC (test code = MCHC) 32.4 32.0-36.0 [facility]OmdecskJEHAEDWLLK6161-45-38 18:46:00 Test Item Value Reference Range Interpretation Comments [place]-Hep C Ab (test Negative *NA*(07/22/14 code = [place]-Hep C 1:46 PM) Ab) [facility] AND [id number] 18:46:00 Test Item Value Reference Range Interpretation Comments UA Urobilinogen (test code = UA <=1.0 mg/dL 0.1-1.0 Urobilinogen) [facility] AND [id number] 18:46:00 Test Item Value Reference Range Interpretation Comments UA Sq Epi (test code = UA Sq Epi) None Seen [facility] AND [id number] 18:46:00 Test Item Value Reference Range Interpretation Comments UA Leuk Est (test Negative (07/22/14 1:46 code = UA Leuk Est) PM) [facility] AND [id number] 18:46:00 Test Item Value Reference Range Interpretation Comments UA Nitrite (test code Negative (07/22/14 1:46 = UA Nitrite) PM) [facility] AND [id number] 18:46:00 Test Item Value Reference Range Interpretation Comments UA Blood (test code = Negative (07/22/14 1:46 UA Blood) PM) [facility] AND [id number] 18:46:00 Test Item Value Reference Range Interpretation Comments UA Ketones (test code = UA Negative mg/dL Ketones) [facility] AND [id number] 18:46:00 Test Item Value Reference Range Interpretation Comments UA Bili (test code = Negative *NA*(07/22/14 UA Bili) 1:46 PM) [facility] AND [id number] 18:46:00 Test Item Value Reference Range Interpretation Comments UA Bacteria (test code = UA Occasional /HPF Bacteria) [facility] AND [id number] 18:46:00 Test Item Value Reference Range Interpretation Comments UA RBC (test code = no gt See_Comment [Automa elizabeth message] The UA RBC) system which ge nerated this result transmit elizabeth reference range : <=2. The reference range was not used to interpr et this result as margaret l/abnormal. [facility] AND [id number] 18:46:00 Test Item Value Reference Range Interpretation Comments UA WBC (test code = 1 See_Comment [Automa elizabeth message] The UA WBC) system which ge nerated this result transmit elizabeth reference range : <=5. The reference range was not used to interpr et this result as margaret l/abnormal. [facility] AND [id number] 18:46:00 Test Item Value Reference Range Interpretation Comments UA Glucose (test code = UA Glucose) 30 mg/dL [facility] AND [id number] 18:46:00 Test Item Value Reference Range Interpretation Comments UA Protein (test code = UA Negative mg/dL Protein) [facility] AND [id number] 18:46:00 Test Item Value Reference Range Interpretation Comments UA pH (test code = UA pH) 6.5 5.0-8.0 [facility] [id number] 18:46:00 Test Item Value Reference Range Interpretation Comments UA Turbidity (test code = Clear (07/22/14 1:46 UA Turbidity) PM) [facility] [id number] 18:46:00 Test Item Value Reference Range Interpretation Comments UA Spec Grav (test code = UA Spec Grav) 1.[address] [facility] AND [id number] 18:46:00 Test Item Value Reference Range Interpretation Comments UA Color (test code = Light Yellow UA Color) *NA*(07/22/14 1:46 PM) [facility] [id number] 18:46:00 Test Item Value Reference Range Interpretation Comments Magnesium Lvl (test code = Magnesium 1.8 1.8-2.4 Lvl) [facility] CenterKguhthhAILGBIMXIPWB4114-87-91 18:46:00 Test Item Value Reference Range Interpretation Comments AGAP (test code = AGAP) 13.2 10.0-20.0 [facility] HospitalWuumvzlHPWYXLIVXMMC8277-67-77 18:46:00 Test Item Value Reference Range Interpretation Comments B/C Ratio (test code = B/C Ratio) 18 6-25 [facility] HospitalChqtcfmSLRIFLPHTXOO2652-64-52 18:46:00 Test Item Value Reference Range Interpretation Comments A/G Ratio (test code = A/G Ratio) 1.1 0.7-1.6 [facility] HospitalNyvwcnkRBAAFBXUFWWP2289-78-69 18:46:00 Test Item Value Reference Range Interpretation Comments Globulin (test code = Globulin) 3.3 2.0-4.0 [facility] HospitalMyulyzfVPWEOHJPZPYX3369-74-52 18:46:00 Test Item Value Reference Range Interpretation Comments eGFR (test code = eGFR) 99 [facility] HospitalSnsctwiRBJYRXBIRGEU5340-65-93 18:46:00 Test Item Value Reference Range Interpretation Comments Calcium Lvl (test code = Calcium Lvl) 9.0 8.5-10.5 [facility]NrvpyxyJVNDFCCIGBSV3082-13-21 18:46:00 Test Item Value Reference Range Interpretation Comments Chloride Lvl (test code = Chloride Lvl) 106 95-109 [facility] HospitalTtstvbfPOJCSDWBCUVT5329-29-25 18:46:00 Test Item Value Reference Range Interpretation Comments Creatinine Lvl (test code = Creatinine 0.9 0.5-1.4 Lvl) [facility] HospitalEdkvvfzEVFZRITUYKCA7366-26-62 18:46:00 Test Item Value Reference Range Interpretation Comments Potassium Lvl (test code = Potassium 4.2 3.5-5.1 Lvl) [facility] HospitalStmkqecDOBLHOSLGLXP8669-17-52 18:46:00 Test Item Value Reference Range Interpretation Comments Sodium Lvl (test code = Sodium Lvl) 139 135-145 [facility] HospitalWblydhxDJCRUDOTYYLP9668-65-12 18:46:00 Test Item Value Reference Range Interpretation Comments CO2 (test code = CO2) 24 24-32 [facility] HospitalKfkotisYETEXSDAESCU5618-84-59 18:46:00 Test Item Value Reference Range Interpretation Comments BUN (test code = BUN) 16 7-22 [facility] HospitalLughkejWJIDSMIJHDLL1568-70-47 18:46:00 Test Item Value Reference Range Interpretation Comments Glucose Lvl (test code = Glucose Lvl) 141 70-99 [facility] HospitalSdkdvcdWKRWOSKYCKBG9995-86-41 18:46:00 Test Item Value Reference Range Interpretation Comments Albumin Lvl (test code = Albumin Lvl) 3.6 3.5-5.0 [facility] HospitalHrejriaVHVTIUBZBRJQ3948-29-84 18:46:00 Test Item Value Reference Range Interpretation Comments Alk Phos (test code = Alk Phos) 65 39-136 [facility] HospitalAfazyjyEQDURLMDVGWT6603-37-19 18:46:00 Test Item Value Reference Range Interpretation Comments Bili Total (test code = Bili Total) 0.3 0.2-1.3 [facility] HospitalYbzrtvjQVHXXIYBSIDV8873-21-43 18:46:00 Test Item Value Reference Range Interpretation Comments ALT (test code = ALT) 100 See_Comment [Auto mated message] The system which ge nerated this result transmit elizabeth reference range : <=65. The reference range was not used to interpr et this result as margaret l/abnormal. [facility] HospitalAfiwebvPAODSFORALFK2606-47-69 18:46:00 Test Item Value Reference Range Interpretation Comments AST (test code = AST) 53 See_Comment [Auto mated message] The system which ge nerated this result transmit elizabeth reference range : <=37. The reference range was not used to interpr et this result as margaret l/abnormal. [facility] HospitalSlrvicaSLBTEWGTKLEV1695-51-71 18:46:00 Test Item Value Reference Range Interpretation Comments Total Protein (test code = Total 6.9 6.4-8.4 Protein) [facility]lineWpqoblyKPPSTJZWKE5918-63-45 18:46:00 Test Item Value Reference Range Interpretation Comments Eosinophils (test code = 4.2 See_Comment [A utomated message] The Eosinophils) system which ge nerated this result tra nsmitted reference range : <=4.0. The reference r mitra was not used to int erpret this result as normal/abnormal . [facility]lineWmukbjuXDCCYBLMPH0730-65-00 18:46:00 Test Item Value Reference Range Interpretation Comments Segs (test code = Segs) 56.4 45.0-75.0 [facility]lineWmvdogqQVRCGWBPKU3180-54-75 18:46:00 Test Item Value Reference Range Interpretation Comments Monocytes (test code = Monocytes) 10.3 2.0-12.0 [facility]lineKjruiyfPPAIJMKDDC0693-75-30 18:46:00 Test Item Value Reference Range Interpretation Comments Lymphocytes (test code = Lymphocytes) 28.0 20.0-40.0 [facility]lineHvhcrsuNIFZVUMSND9241-57-78 18:46:00 Test Item Value Reference Range Interpretation Comments Monocytes # (test code 0.5 See_Comment [Aut omated message] The = Monocytes #) system which generated this result tra nsmitted reference range : <=0.8. The reference r mitra was not used to int erpret this result as normal/abnormal . [facility] ShorelineUaiuwenZFUGUUKFPS8968-32-85 18:46:00 Test Item Value Reference Range Interpretation Comments Basophils (test code = 1.1 See_Comment [Aut omated message] The Basophils) system which ge nerated this result tra nsmitted reference range : <=1.0. The reference r mitra was not used to int erpret this result as normal/abnormal . [facility]lineSnsyoghZPPQHIWKKK1525-51-01 18:46:00 Test Item Value Reference Range Interpretation Comments Lymphocytes # (test code = Lymphocytes 1.5 1.0-5.5 #) [facility]lineOhdthdwUWOYBHFEXM5125-04-64 18:46:00 Test Item Value Reference Range Interpretation Comments Segs-Bands # (test code = Segs-Bands #) 2.9 1.5-8.1 [facility]lineQzjpikwZUMMMCHJEX3980-43-12 18:46:00 Test Item Value Reference Range Interpretation Comments Eosinophils # (test code 0.2 See_Comment [A utomated message] The = Eosinophils #) system whic h generated this result tra nsmitted reference range : <=0.5. The reference r mitra was not used to int erpret this result as normal/abnormal . [facility] ShorelineLjqkelaAOHKPKEHXO6010-48-85 18:46:00 Test Item Value Reference Range Interpretation Comments Basophils # (test code 0.1 See_Comment [Aut omated message] The = Basophils #) system which generated this result tra nsmitted reference range : <=0.2. The reference r mitra was not used to int erpret this result as normal/abnormal . [facility]lineOfvwkbrDWFTZWYGDQ1725-38-53 18:46:00 Test Item Value Reference Range Interpretation Comments PT (test code = PT) 11.2 s 12.0-14.7 [facility] ShorelineAwefzrcWSZESMAEZH6335-29-14 18:46:00 Test Item Value Reference Range Interpretation Comments INR (test code = INR) 0.82 0.85-1.17 [facility] ShorelineAlmqczpLOAIPZNLJZ9188-32-11 18:46:00 Test Item Value Reference Range Interpretation Comments PTT (test code = PTT) 28.6 s 22.9-35.8 [facility] ShorelineZsnjhjyLZXHFUQVWU5876-41-85 18:46:00 Test Item Value Reference Range Interpretation Comments MPV (test code = MPV) 8.1 7.4-10.4 [facility]lineAcbpfqdEIYRXZWLQY5735-23-72 18:46:00 Test Item Value Reference Range Interpretation Comments Platelet (test code = Platelet) 301 133-450 [facility] ShorelineImoxvipPTNDOKVOQP8485-00-95 18:46:00 Test Item Value Reference Range Interpretation Comments RDW (test code = RDW) 14.5 11.5-14.5 [facility] ShorelineFagserlWABHOFUOGE9011-39-39 18:46:00 Test Item Value Reference Range Interpretation Comments RBC (test code = RBC) 4.84 4.70-6.10 [facility]lineQkjbzwvMKRJAAGEMI0666-02-34 18:46:00 Test Item Value Reference Range Interpretation Comments Hgb (test code = Hgb) 14.4 14.0-18.0 [facility] CenterKglxmzfMFVMQDQXAT4788-16-65 18:46:00 Test Item Value Reference Range Interpretation Comments WBC (test code = WBC) 5.2 3.7-10.4 [facility]ngribqRLPXQDMNLM0717-[facility] 18:46:00 Test Item Value Reference Range Interpretation Comments MCH (test code = MCH) 29.8 pg 27.0-31.0 [facility] ShorelineTcuxzxoVTMLTPQBIA8763-09-17 18:46:00 Test Item Value Reference Range Interpretation Comments MCV (test code = MCV) 92.0 80.0-94.0 [facility] HospitalOroymzwAYAYXTOJRD6767-37-12 18:46:00 Test Item Value Reference Range Interpretation Comments Hct (test code = Hct) 44.5 42.0-54.0 [facility] ShorelineTookosmKJHSIZXVMY6903-05-56 18:46:00 Test Item Value Reference Range Interpretation Comments MCHC (test code = MCHC) 32.4 32.0-36.0 [facility] CenterXwtxsxtVVNMAHHMIL8128-32-04 18:46:00 Test Item Value Reference Range Interpretation Comments [place]-Hep C Ab (test Negative *NA*(07/22/14 code = [place]-Hep C 1:46 PM) Ab) [facility] AND [id number] 18:46:00 Test Item Value Reference Range Interpretation Comments UA Urobilinogen (test code = UA <=1.0 mg/dL 0.1-1.0 Urobilinogen) [facility] AND [id number] 18:46:00 Test Item Value Reference Range Interpretation Comments UA Sq Epi (test code = UA Sq Epi) None Seen [facility] AND [id number] 18:46:00 Test Item Value Reference Range Interpretation Comments UA Leuk Est (test Negative (07/22/14 1:46 code = UA Leuk Est) PM) [facility] AND [id number] 18:46:00 Test Item Value Reference Range Interpretation Comments UA Nitrite (test code Negative (07/22/14 1:46 = UA Nitrite) PM) [facility] AND [id number] 18:46:00 Test Item Value Reference Range Interpretation Comments UA Blood (test code = Negative (07/22/14 1:46 UA Blood) PM) [facility] AND [id number] 18:46:00 Test Item Value Reference Range Interpretation Comments UA Ketones (test code = UA Negative mg/dL Ketones) [facility] AND [id number] 18:46:00 Test Item Value Reference Range Interpretation Comments UA Bili (test code = Negative *NA*(07/22/14 UA Bili) 1:46 PM) [facility] AND [id number] 18:46:00 Test Item Value Reference Range Interpretation Comments UA Bacteria (test code = UA Occasional /HPF Bacteria) [facility] AND [id number] 18:46:00 Test Item Value Reference Range Interpretation Comments UA RBC (test code = no gt See_Comment [Automa elizabeth message] The UA RBC) system which ge nerated this result transmit elizabeth reference range : <=2. The reference range was not used to interpr et this result as margaret l/abnormal. [facility] AND [id number] 18:46:00 Test Item Value Reference Range Interpretation Comments UA WBC (test code = 1 See_Comment [Automa elizabeth message] The UA WBC) system which ge nerated this result transmit elizabeth reference range : <=5. The reference range was not used to interpr et this result as margaret l/abnormal. [facility] AND [id number] 18:46:00 Test Item Value Reference Range Interpretation Comments UA Glucose (test code = UA Glucose) 30 mg/dL [facility] AND [id number] 18:46:00 Test Item Value Reference Range Interpretation Comments UA Protein (test code = UA Negative mg/dL Protein) [facility] AND [id number] 18:46:00 Test Item Value Reference Range Interpretation Comments UA pH (test code = UA pH) 6.5 5.0-8.[address] [facility] AND [id number] 18:46:00 Test Item Value Reference Range Interpretation Comments UA Turbidity (test code = Clear (07/22/14 1:46 UA Turbidity) PM) [facility] AND [id number] 18:46:00 Test Item Value Reference Range Interpretation Comments UA Spec Grav (test code = UA Spec Grav) 1.[address] [facility] AND [id number] 18:46:00 Test Item Value Reference Range Interpretation Comments UA Color (test code = Light Yellow UA Color) *NA*(07/22/14 1:46 PM) [facility]2015-06-09 18:46:00 Test Item Value Reference Range Interpretation Comments Magnesium Lvl (test code = Magnesium 1.8 1.8-2.4 Lvl) [facility] HospitalQsdsncxVFOUVVGSTBQG8211-80-95 18:46:00 Test Item Value Reference Range Interpretation Comments AGAP (test code = AGAP) 13.2 10.0-20.0 [facility] HospitalMxsnmyxWRWPARSUTLBY5500-46-95 18:46:00 Test Item Value Reference Range Interpretation Comments B/C Ratio (test code = B/C Ratio) 18 6-25 [facility] HospitalIfwqbdoVYFXDLCGEZJD4761-71-96 18:46:00 Test Item Value Reference Range Interpretation Comments A/G Ratio (test code = A/G Ratio) 1.1 0.7-1.6 [facility] HospitalWqztlfaXYYDCTDJEPFB8220-39-32 18:46:00 Test Item Value Reference Range Interpretation Comments Globulin (test code = Globulin) 3.3 2.0-4.0 [facility] HospitalYnikltwIZSBAYZAGNFD1151-86-35 18:46:00 Test Item Value Reference Range Interpretation Comments eGFR (test code = eGFR) 99 [facility] HospitalKlrloaaDYKTUGTHACZG7016-28-57 18:46:00 Test Item Value Reference Range Interpretation Comments Calcium Lvl (test code = Calcium Lvl) 9.0 8.5-10.5 [facility] HospitalVhipfkyNLMUPYJXHVMY2822-93-71 18:46:00 Test Item Value Reference Range Interpretation Comments Chloride Lvl (test code = Chloride Lvl) 106 95-109 [facility] HospitalQpdibdrGBNFPJJFRWZF9487-39-82 18:46:00 Test Item Value Reference Range Interpretation Comments Creatinine Lvl (test code = Creatinine 0.9 0.5-1.4 Lvl) [facility] HospitalHpoonddGFXABUUUQDWA4292-01-92 18:46:00 Test Item Value Reference Range Interpretation Comments Potassium Lvl (test code = Potassium 4.2 3.5-5.1 Lvl) [facility] HospitalZrfojgmKYGTPTVBJENP2783-05-33 18:46:00 Test Item Value Reference Range Interpretation Comments Sodium Lvl (test code = Sodium Lvl) 139 135-145 [facility] HospitalUjbsrocPIOGQZQTVNFL0985-67-93 18:46:00 Test Item Value Reference Range Interpretation Comments CO2 (test code = CO2) 24 24-32 [facility] HospitalDadcqkuYROXWOZDEFHN8494-74-12 18:46:00 Test Item Value Reference Range Interpretation Comments BUN (test code = BUN) 16 7-22 [facility] HospitalJyjkzrdVSIWIGUXTKIN8830-89-20 18:46:00 Test Item Value Reference Range Interpretation Comments Glucose Lvl (test code = Glucose Lvl) 141 70-99 [facility] HospitalOlsmoqnRNCQBCSPNFMU0981-86-59 18:46:00 Test Item Value Reference Range Interpretation Comments Albumin Lvl (test code = Albumin Lvl) 3.6 3.5-5.0 [facility] HospitalNwwfzxoDNJKXLNFTPBD2838-15-86 18:46:00 Test Item Value Reference Range Interpretation Comments Alk Phos (test code = Alk Phos) 65 39-136 [facility] HospitalSezotqpOHDOETSANYSB5353-71-65 18:46:00 Test Item Value Reference Range Interpretation Comments Bili Total (test code = Bili Total) 0.3 0.2-1.3 [facility] HospitalNkbykxnFYHLKKZMCDWO7898-84-69 18:46:00 Test Item Value Reference Range Interpretation Comments ALT (test code = ALT) 100 See_Comment [Auto mated message] The system which ge nerated this result transmit elizabeth reference range : <=65. The reference range was not used to interpr et this result as margaret l/abnormal. [facility] HospitalSrzmfvhKAHBBXAADAIV8568-07-31 18:46:00 Test Item Value Reference Range Interpretation Comments AST (test code = AST) 53 See_Comment [Auto mated message] The system which ge nerated this result transmit elizabeth reference range : <=37. The reference range was not used to interpr et this result as margaret l/abnormal. [facility] HospitalOrmqkvbZTZJNUOFJDUU7828-24-87 18:46:00 Test Item Value Reference Range Interpretation Comments Total Protein (test code = Total 6.9 6.4-8.4 Protein) [facility]lineGazpvyaFHNWRXPLBS5737-14-82 18:46:00 Test Item Value Reference Range Interpretation Comments Eosinophils (test code = 4.2 See_Comment [A utomated message] The Eosinophils) system which ge nerated this result tra nsmitted reference range : <=4.0. The reference r mitra was not used to int erpret this result as normal/abnormal . [facility]lineZxbmclvMKMRWSRSHR4953-85-77 18:46:00 Test Item Value Reference Range Interpretation Comments Segs (test code = Segs) 56.4 45.0-75.0 [facility]lineFgwupluGAPPFLOXPT1842-19-74 18:46:00 Test Item Value Reference Range Interpretation Comments Monocytes (test code = Monocytes) 10.3 2.0-12.0 [facility]lineMmblzgrPBIVOTHVAQ2483-11-07 18:46:00 Test Item Value Reference Range Interpretation Comments Lymphocytes (test code = Lymphocytes) 28.0 20.0-40.0 [facility]lineVhfuvlrNUOPZGMRJA2950-48-95 18:46:00 Test Item Value Reference Range Interpretation Comments Monocytes # (test code 0.5 See_Comment [Aut omated message] The = Monocytes #) system which generated this result tra nsmitted reference range : <=0.8. The reference r mitra was not used to int erpret this result as normal/abnormal . [facility]lineXqbcnltSWBGFHVNLZ8086-18-61 18:46:00 Test Item Value Reference Range Interpretation Comments Basophils (test code = 1.1 See_Comment [Aut omated message] The Basophils) system which ge nerated this result tra nsmitted reference range : <=1.0. The reference r mitra was not used to int erpret this result as normal/abnormal . [facility]lineMperfxfEZXYLVUEFN3304-98-50 18:46:00 Test Item Value Reference Range Interpretation Comments Lymphocytes # (test code = Lymphocytes 1.5 1.0-5.5 #) [facility]lineOqkaaifDBIGPOWKDV3609-97-43 18:46:00 Test Item Value Reference Range Interpretation Comments Segs-Bands # (test code = Segs-Bands #) 2.9 1.5-8.1 [facility]lineKkopgmgOMGONNMVFU0883-60-24 18:46:00 Test Item Value Reference Range Interpretation Comments Eosinophils # (test code 0.2 See_Comment [A utomated message] The = Eosinophils #) system whic h generated this result tra nsmitted reference range : <=0.5. The reference r mitra was not used to int erpret this result as normal/abnormal . [facility]lineNieodwdOAZJJVRTQG4685-99-52 18:46:00 Test Item Value Reference Range Interpretation Comments Basophils # (test code 0.1 See_Comment [Aut omated message] The = Basophils #) system which generated this result tra nsmitted reference range : <=0.2. The reference r mitra was not used to int erpret this result as normal/abnormal . [facility]lineQbzvxnnCGQHHXKNCN9955-99-82 18:46:00 Test Item Value Reference Range Interpretation Comments PT (test code = PT) 11.2 s 12.0-14.7 [facility]lineWsxsxmjKKYIIPGJNJ0148-98-23 18:46:00 Test Item Value Reference Range Interpretation Comments INR (test code = INR) 0.82 0.85-1.17 [facility]lineDievgkuJUZOZFJQBZ0084-27-79 18:46:00 Test Item Value Reference Range Interpretation Comments PTT (test code = PTT) 28.6 s 22.9-35.8 [facility]lineKuftgoqESGELLMUVM6304-89-06 18:46:00 Test Item Value Reference Range Interpretation Comments MPV (test code = MPV) 8.1 7.4-10.4 [facility]lineTabjjxjJVHQHTYVMB8145-94-11 18:46:00 Test Item Value Reference Range Interpretation Comments Platelet (test code = Platelet) 301 133-450 [facility]lineQxeagsuTTXROMHZGL6526-63-46 18:46:00 Test Item Value Reference Range Interpretation Comments RDW (test code = RDW) 14.5 11.5-14.5 [facility]lineLmuaiqpCIOUKUVRAA8526-86-24 18:46:00 Test Item Value Reference Range Interpretation Comments RBC (test code = RBC) 4.84 4.70-6.10 [facility] ShorelineGactaptHSQAXDLHPB9151-35-84 18:46:00 Test Item Value Reference Range Interpretation Comments Hgb (test code = Hgb) 14.4 14.0-18.0 [facility]lineHubggtcWQCKCYBCNL3882-07-98 18:46:00 Test Item Value Reference Range Interpretation Comments WBC (test code = WBC) 5.2 3.7-10.4 [facility]lineYievejdPTNGELBQRK7127-43-80 18:46:00 Test Item Value Reference Range Interpretation Comments MCH (test code = MCH) 29.8 pg 27.0-31.0 [facility]lineEsmhlzuVXNRWRYUKI6684-01-30 18:46:00 Test Item Value Reference Range Interpretation Comments MCV (test code = MCV) 92.0 80.0-94.0 [facility]lineXocoejdJBBZZOAVKC1547-04-71 18:46:00 Test Item Value Reference Range Interpretation Comments Hct (test code = Hct) 44.5 42.0-54.0 [facility] WnipldcBGUMSAFYTL5885-37-12 18:46:00 Test Item Value Reference Range Interpretation Comments MCHC (test code = MCHC) 32.4 32.0-36.0 [facility] LpoajpiICLJZXEPUW1799-97-60 18:46:00 Test Item Value Reference Range Interpretation Comments [place]-Hep C Ab (test Negative *NA*(07/22/14 code = [place]-Hep C 1:46 PM) Ab) [facility] [id number] 18:46:00 Test Item Value Reference Range Interpretation Comments UA Urobilinogen (test code = UA <=1.0 mg/dL 0.1-1.0 Urobilinogen) [facility] [id number] 18:46:00 Test Item Value Reference Range Interpretation Comments UA Sq Epi (test code = UA Sq Epi) None [facility] [id number] 18:46:00 Test Item Value Reference Range Interpretation Comments UA Leuk Est (test Negative (07/22/14 1:46 code = UA Leuk Est) PM) [facility] [id number] 18:46:00 Test Item Value Reference Range Interpretation Comments UA Nitrite (test code Negative (07/22/14 1:46 = UA Nitrite) PM) [facility] [id number] 18:46:00 Test Item Value Reference Range Interpretation Comments UA Blood (test code = Negative (07/22/14 1:46 UA Blood) PM) [facility] [id number] 18:46:00 Test Item Value Reference Range Interpretation Comments UA Ketones (test code = UA Negative mg/dL Ketones) [facility] [id number] 18:46:00 Test Item Value Reference Range Interpretation Comments UA Bili (test code = Negative *NA*(07/22/14 UA Bili) 1:46 PM) [facility] [id number] 18:46:00 Test Item Value Reference Range Interpretation Comments UA Bacteria (test code = UA Occasional /HPF Bacteria) [facility] [id number] 18:46:00 Test Item Value Reference Range Interpretation Comments UA RBC (test code = no gt See_Comment [Automa elizabeth message] The UA RBC) system which ge nerated this result transmit elizabeth reference range : <=2. The reference range was not used to interpr et this result as margaret l/abnormal. [facility] AND [id number] 18:46:00 Test Item Value Reference Range Interpretation Comments UA WBC (test code = 1 See_Comment [Automa elizabeth message] The UA WBC) system which ge nerated this result transmit elizabeth reference range : <=5. The reference range was not used to interpr et this result as margaret l/abnormal. [facility] AND [id number] 18:46:00 Test Item Value Reference Range Interpretation Comments UA Glucose (test code = UA Glucose) 30 mg/dL [facility] AND [id number] 18:46:00 Test Item Value Reference Range Interpretation Comments UA Protein (test code = UA Negative mg/dL Protein) [facility] AND [id number] 18:46:00 Test Item Value Reference Range Interpretation Comments UA pH (test code = UA pH) 6.5 5.0-8.[address] [facility] AND [id number] 18:46:00 Test Item Value Reference Range Interpretation Comments UA Turbidity (test code = Clear (07/22/14 1:46 UA Turbidity) PM) [facility] AND [id number] 18:46:00 Test Item Value Reference Range Interpretation Comments UA Spec Grav (test code = UA Spec Grav) 1.[address] [facility] AND [id number] 18:46:00 Test Item Value Reference Range Interpretation Comments UA Color (test code = Light Yellow UA Color) *NA*(07/22/14 1:46 PM) [facility]annCHE[facility] [id number] 18:46:00 Test Item Value Reference Range Interpretation Comments Magnesium Lvl (test code = Magnesium 1.8 1.8-2.4 Lvl) [facility]JuzwockDXBHGLSQRNCA2938-70-10 18:46:00 Test Item Value Reference Range Interpretation Comments AGAP (test code = AGAP) 13.2 10.0-20.0 [facility] CenterUpiozgeUMQKGMJYQLUF2701-75-83 18:46:00 Test Item Value Reference Range Interpretation Comments B/C Ratio (test code = B/C Ratio) 18 6-25 [facility] HospitalQejjeucCCCSXGWTLRCC4657-19-76 18:46:00 Test Item Value Reference Range Interpretation Comments A/G Ratio (test code = A/G Ratio) 1.1 0.7-1.6 [facility] HospitalFtasagqBIVSDGNMHMSF1160-48-13 18:46:00 Test Item Value Reference Range Interpretation Comments Globulin (test code = Globulin) 3.3 2.0-4.0 [facility] HospitalQhwbuwhGOEUWOSUUHGH0119-93-48 18:46:00 Test Item Value Reference Range Interpretation Comments eGFR (test code = eGFR) 99 [facility] HospitalHqkuekvQVOZKXTIOSVX5545-33-85 18:46:00 Test Item Value Reference Range Interpretation Comments Calcium Lvl (test code = Calcium Lvl) 9.0 8.5-10.5 [facility] HospitalDckzaghKPQRVINFATJC4017-60-03 18:46:00 Test Item Value Reference Range Interpretation Comments Chloride Lvl (test code = Chloride Lvl) 106 95-109 [facility] HospitalJwwomnzFBNYRUFTHXLU1338-54-44 18:46:00 Test Item Value Reference Range Interpretation Comments Creatinine Lvl (test code = Creatinine 0.9 0.5-1.4 Lvl) [facility] HospitalMqdksibBIETEXOZBOIG6227-81-14 18:46:00 Test Item Value Reference Range Interpretation Comments Potassium Lvl (test code = Potassium 4.2 3.5-5.1 Lvl) [facility] HospitalNnfnameXCTSANMGKJTA1012-51-36 18:46:00 Test Item Value Reference Range Interpretation Comments Sodium Lvl (test code = Sodium Lvl) 139 135-145 [facility] HospitalZzrqiqcSQMXIXZPXFUM9906-53-52 18:46:00 Test Item Value Reference Range Interpretation Comments CO2 (test code = CO2) 24 24-32 [facility] HospitalJenrjvxLIOFGKBISWFF0581-24-70 18:46:00 Test Item Value Reference Range Interpretation Comments BUN (test code = BUN) 16 7-22 [facility] HospitalMvvklocDEVJLBGMTHBX0540-61-41 18:46:00 Test Item Value Reference Range Interpretation Comments Glucose Lvl (test code = Glucose Lvl) 141 70-99 [facility] HospitalHloydcjIKZMGHOAJASM6462-74-25 18:46:00 Test Item Value Reference Range Interpretation Comments Albumin Lvl (test code = Albumin Lvl) 3.6 3.5-5.0 [facility] HospitalFahnvzmFRGMTMEHXQJR6176-74-65 18:46:00 Test Item Value Reference Range Interpretation Comments Alk Phos (test code = Alk Phos) 65 39-136 [facility] HospitalKflwyprVUPIHPAKRCLF6834-57-71 18:46:00 Test Item Value Reference Range Interpretation Comments Bili Total (test code = Bili Total) 0.3 0.2-1.3 [facility] HospitalVaxkrxyYCREAPJYHPSJ8067-11-53 18:46:00 Test Item Value Reference Range Interpretation Comments ALT (test code = ALT) 100 See_Comment [Auto mated message] The system which ge nerated this result transmit elizabeth reference range : <=65. The reference range was not used to interpr et this result as margaret l/abnormal. [facility] HospitalYbzjrpqEBTNFDPGCGIU4432-99-66 18:46:00 Test Item Value Reference Range Interpretation Comments AST (test code = AST) 53 See_Comment [Auto mated message] The system which ge nerated this result transmit elizabeth reference range : <=37. The reference range was not used to interpr et this result as margaret l/abnormal. [facility] HospitalRlmuluoWZCICARWEGNE0189-91-27 18:46:00 Test Item Value Reference Range Interpretation Comments Total Protein (test code = Total 6.9 6.4-8.4 Protein) [facility]lineSjrvdgyIYCFFMJOWT3753-02-92 18:46:00 Test Item Value Reference Range Interpretation Comments Eosinophils (test code = 4.2 See_Comment [A utomated message] The Eosinophils) system which ge nerated this result tra nsmitted reference range : <=4.0. The reference r mitra was not used to int erpret this result as normal/abnormal . [facility]lineXyhdizvCPBGRTSZOT3104-47-55 18:46:00 Test Item Value Reference Range Interpretation Comments Segs (test code = Segs) 56.4 45.0-75.0 [facility]lineIxfdpezRIMUAWQTQY0076-34-18 18:46:00 Test Item Value Reference Range Interpretation Comments Monocytes (test code = Monocytes) 10.3 2.0-12.0 [facility]lineObpkbaeCAHKGEXYHL7714-78-86 18:46:00 Test Item Value Reference Range Interpretation Comments Lymphocytes (test code = Lymphocytes) 28.0 20.0-40.0 [facility]lineSelhdfmMNVRUCGGPY1110-30-15 18:46:00 Test Item Value Reference Range Interpretation Comments Monocytes # (test code 0.5 See_Comment [Aut omated message] The = Monocytes #) system which generated this result tra nsmitted reference range : <=0.8. The reference r mitra was not used to int erpret this result as normal/abnormal . [facility] ShorelineAfunfusKROGKIKULS5500-48-52 18:46:00 Test Item Value Reference Range Interpretation Comments Basophils (test code = 1.1 See_Comment [Aut omated message] The Basophils) system which ge nerated this result tra nsmitted reference range : <=1.0. The reference r mitra was not used to int erpret this result as normal/abnormal . [facility]lineZpyloqcYYSXDZOHHT2741-75-27 18:46:00 Test Item Value Reference Range Interpretation Comments Lymphocytes # (test code = Lymphocytes 1.5 1.0-5.5 #) [facility]lineJpiovhhEKRKLLTMZL1915-80-88 18:46:00 Test Item Value Reference Range Interpretation Comments Segs-Bands # (test code = Segs-Bands #) 2.9 1.5-8.1 [facility]lineDxomvewGIFCDKFBWS2405-35-29 18:46:00 Test Item Value Reference Range Interpretation Comments Eosinophils # (test code 0.2 See_Comment [A utomated message] The = Eosinophils #) system whic h generated this result tra nsmitted reference range : <=0.5. The reference r mitra was not used to int erpret this result as normal/abnormal . [facility]lineHjvucpwQBAHLQWZQL3775-36-49 18:46:00 Test Item Value Reference Range Interpretation Comments Basophils # (test code 0.1 See_Comment [Aut omated message] The = Basophils #) system which generated this result tra nsmitted reference range : <=0.2. The reference r mitra was not used to int erpret this result as normal/abnormal . [facility]lineVjyjqyvTABZQBJJRC6696-56-39 18:46:00 Test Item Value Reference Range Interpretation Comments PT (test code = PT) 11.2 s 12.0-14.7 [facility]lineZnjrvjjTDKNHDLPGZ0599-05-92 18:46:00 Test Item Value Reference Range Interpretation Comments INR (test code = INR) 0.82 0.85-1.17 [facility]lineJenytyeQEYBJQOZNR6108-87-69 18:46:00 Test Item Value Reference Range Interpretation Comments PTT (test code = PTT) 28.6 s 22.9-35.8 [facility]mdqocNEPLCAHHIA6400-18-80 18:46:00 Test Item Value Reference Range Interpretation Comments MPV (test code = MPV) 8.1 7.4-10.4 [facility] HospitalFzwrdkeRZWZQCZBPB0382-66-85 18:46:00 Test Item Value Reference Range Interpretation Comments Platelet (test code = Platelet) 301 133-450 [facility] HospitalVtsdmgzHWIGFDKOJF3244-93-94 18:46:00 Test Item Value Reference Range Interpretation Comments RDW (test code = RDW) 14.5 11.5-14.5 [facility] HospitalEcproxfDPVCZKJDYC5812-73-67 18:46:00 Test Item Value Reference Range Interpretation Comments RBC (test code = RBC) 4.84 4.70-6.10 [facility] HospitalMsovvgsMUPFHBMWLN6242-12-58 18:46:00 Test Item Value Reference Range Interpretation Comments Hgb (test code = Hgb) 14.4 14.0-18.0 [facility] HospitalUnrxabbABZFZLOJPJ0232-09-64 18:46:00 Test Item Value Reference Range Interpretation Comments WBC (test code = WBC) 5.2 3.7-10.4 [facility] HospitalPgigesrGSBYHCZMCI4730-49-53 18:46:00 Test Item Value Reference Range Interpretation Comments MCH (test code = MCH) 29.8 pg 27.0-31.0 [facility] HospitalMfmotkfJIXAQSDVOU3299-46-10 18:46:00 Test Item Value Reference Range Interpretation Comments MCV (test code = MCV) 92.0 80.0-94.0 [facility] CenterNweukxpEXBVJUONDK2417-73-40 18:46:00 Test Item Value Reference Range Interpretation Comments Hct (test code = Hct) 44.5 42.0-54.0 [facility] HospitalJddtjsiEUXJFRKFZS4334-09-50 18:46:00 Test Item Value Reference Range Interpretation Comments MCHC (test code = MCHC) 32.4 32.0-36.0 [facility]HjhxjwiEMPRVALNNZ4950-13-46 18:46:00 Test Item Value Reference Range Interpretation Comments [place]-Hep C Ab (test Negative *NA*(07/22/14 code = [place]-Hep C 1:46 PM) Ab) [facility] AND [id number] 18:46:00 Test Item Value Reference Range Interpretation Comments UA Urobilinogen (test code = UA <=1.0 mg/dL 0.1-1.0 Urobilinogen) [facility] AND [id number] 18:46:00 Test Item Value Reference Range Interpretation Comments UA Sq Epi (test code = UA Sq Epi) None Seen [facility] AND [id number] 18:46:00 Test Item Value Reference Range Interpretation Comments UA Leuk Est (test Negative (07/22/14 1:46 code = UA Leuk Est) PM) [facility] AND [id number] 18:46:00 Test Item Value Reference Range Interpretation Comments UA Nitrite (test code Negative (07/22/14 1:46 = UA Nitrite) PM) [facility] AND [id number] 18:46:00 Test Item Value Reference Range Interpretation Comments UA Blood (test code = Negative (07/22/14 1:46 UA Blood) PM) [facility] AND [id number] 18:46:00 Test Item Value Reference Range Interpretation Comments UA Ketones (test code = UA Negative mg/dL Ketones) [facility] AND [id number] 18:46:00 Test Item Value Reference Range Interpretation Comments UA Bili (test code = Negative *NA*(07/22/14 UA Bili) 1:46 PM) [facility] AND [id number] 18:46:00 Test Item Value Reference Range Interpretation Comments UA Bacteria (test code = UA Occasional /HPF Bacteria) [facility] AND [id number] 18:46:00 Test Item Value Reference Range Interpretation Comments UA RBC (test code = no gt See_Comment [Automa elizabeth message] The UA RBC) system which ge nerated this result transmit elizabeth reference range : <=2. The reference range was not used to interpr et this result as margaret l/abnormal. [facility] AND [id number] 18:46:00 Test Item Value Reference Range Interpretation Comments UA WBC (test code = 1 See_Comment [Automa elizabeth message] The UA WBC) system which ge nerated this result transmit elizabeth reference range : <=5. The reference range was not used to interpr et this result as margaret l/abnormal. [facility] AND [id number] 18:46:00 Test Item Value Reference Range Interpretation Comments UA Glucose (test code = UA Glucose) 30 mg/dL [facility] AND [id number] 18:46:00 Test Item Value Reference Range Interpretation Comments UA Protein (test code = UA Negative mg/dL Protein) [facility] AND [id number] 18:46:00 Test Item Value Reference Range Interpretation Comments UA pH (test code = UA pH) 6.5 5.0-8.[address] [facility] AND [id number] 18:46:00 Test Item Value Reference Range Interpretation Comments UA Turbidity (test code = Clear (07/22/14 1:46 UA Turbidity) PM) [facility] AND [id number] 18:46:00 Test Item Value Reference Range Interpretation Comments UA Spec Grav (test code = UA Spec Grav) 1.[address] [facility] AND [id number] 18:46:00 Test Item Value Reference Range Interpretation Comments UA Color (test code = Light Yellow UA Color) *NA*(07/22/14 1:46 PM) [facility] CenterPipeliner CRM [id number] 18:46:00 Test Item Value Reference Range Interpretation Comments Magnesium Lvl (test code = Magnesium 1.8 1.8-2.4 Lvl) [facility] HospitalYgxhnojRNHFYJRTQWDV1172-23-41 18:46:00 Test Item Value Reference Range Interpretation Comments AGAP (test code = AGAP) 13.2 10.0-20.0 [facility] CenterPipel[facility] CRM [id number] 18:46:00 Test Item Value Reference Range Interpretation Comments Magnesium Lvl (test code = Magnesium 1.8 1.8-2.4 Lvl) [facility] HospitalYaynahjYCJBTBOHYRCJ5034-21-06 18:46:00 Test Item Value Reference Range Interpretation Comments AGAP (test code = AGAP) 13.2 10.0-20.0 [facility] HospitalDultmxgNYOBUYPPEINQ3430-95-74 18:46:00 Test Item Value Reference Range Interpretation Comments B/C Ratio (test code = B/C Ratio) 18 - [facility] HospitalRuxqikcQBQFDABEBUKP4052-39-96 18:46:00 Test Item Value Reference Range Interpretation Comments A/G Ratio (test code = A/G Ratio) 1.1 0.7-1.6 [facility] HospitalJttpomtKRTTPRLYWZIZ6498-21-57 18:46:00 Test Item Value Reference Range Interpretation Comments Globulin (test code = Globulin) 3.3 2.0-4.0 [facility] HospitalLjvrukiPWRYNOHUVEAU0808-23-68 18:46:00 Test Item Value Reference Range Interpretation Comments eGFR (test code = eGFR) 99 [facility] HospitalVmwshkqEGUTBYSOPLUN6378-36-22 18:46:00 Test Item Value Reference Range Interpretation Comments Calcium Lvl (test code = Calcium Lvl) 9.0 8.5-10.5 [facility] HospitalOxqekkeRMDUMVTVRJSN7031-91-73 18:46:00 Test Item Value Reference Range Interpretation Comments Chloride Lvl (test code = Chloride Lvl) 106 95-109 [facility] HospitalTohdkwfSYFUOULVGPFY4446-82-50 18:46:00 Test Item Value Reference Range Interpretation Comments Creatinine Lvl (test code = Creatinine 0.9 0.5-1.4 Lvl) [facility] HospitalGioojknRGVHNKLTHYFY3631-72-14 18:46:00 Test Item Value Reference Range Interpretation Comments Potassium Lvl (test code = Potassium 4.2 3.5-5.1 Lvl) [facility] HospitalYrarhxhLJWRQTQXIFKX0061-17-46 18:46:00 Test Item Value Reference Range Interpretation Comments Sodium Lvl (test code = Sodium Lvl) 139 135-145 [facility] HospitalJepyctzZTDEJGDMFMLE1282-68-44 18:46:00 Test Item Value Reference Range Interpretation Comments CO2 (test code = CO2) 24 24-32 [facility] HospitalYnzdaiaZOQHKDMDZQTW8668-63-25 18:46:00 Test Item Value Reference Range Interpretation Comments BUN (test code = BUN) 16 7-22 [facility] HospitalAvjdittUGYGXDRGUQTJ3519-99-15 18:46:00 Test Item Value Reference Range Interpretation Comments Glucose Lvl (test code = Glucose Lvl) 141 70-99 [facility] HospitalWwwaasdIJCIFHQDYFMB1477-98-50 18:46:00 Test Item Value Reference Range Interpretation Comments Albumin Lvl (test code = Albumin Lvl) 3.6 3.5-5.0 [facility] HospitalObggxqwRRJBIMXEIXNK5529-29-41 18:46:00 Test Item Value Reference Range Interpretation Comments Alk Phos (test code = Alk Phos) 65 39-136 [facility] HospitalNocunlkIIDJULACJEFC5217-86-95 18:46:00 Test Item Value Reference Range Interpretation Comments Bili Total (test code = Bili Total) 0.3 0.2-1.3 [facility] HospitalJkufsubZCSUIKGWQPYE8185-45-89 18:46:00 Test Item Value Reference Range Interpretation Comments ALT (test code = ALT) 100 See_Comment [Auto mated message] The system which ge nerated this result transmit elizabeth reference range : <=65. The reference range was not used to interpr et this result as margaret l/abnormal. [facility] HospitalFxxequlJKVMHLKDTAIA6182-01-64 18:46:00 Test Item Value Reference Range Interpretation Comments AST (test code = AST) 53 See_Comment [Auto mated message] The system which ge nerated this result transmit elizabeth reference range : <=37. The reference range was not used to interpr et this result as margaret l/abnormal. [place] [id number] 18:46:00 Test Item Value Reference Range Interpretation Comments Total Protein (test code = Total 6.9 6.4-8.4 Protein) [facility]lineIhsfhtzEUBKDQXJPR1225-35-08 18:46:00 Test Item Value Reference Range Interpretation Comments Eosinophils (test code = 4.2 See_Comment [A utomated message] The Eosinophils) system which ge nerated this result tra nsmitted reference range : <=4.0. The reference r mitra was not used to int erpret this result as normal/abnormal . [facility]lineOcfkyjmLLYXBZAFCJ2979-95-24 18:46:00 Test Item Value Reference Range Interpretation Comments Segs (test code = Segs) 56.4 45.0-75.0 [facility]lineDmcfbbdNSDLGHHJXH4279-95-39 18:46:00 Test Item Value Reference Range Interpretation Comments Monocytes (test code = Monocytes) 10.3 2.0-12.0 [facility]lineWlvfgyuFJYQNKVVWW1441-04-47 18:46:00 Test Item Value Reference Range Interpretation Comments Lymphocytes (test code = Lymphocytes) 28.0 20.0-40.0 [facility]lineRhsyfktDPKZKYPYXF9200-46-66 18:46:00 Test Item Value Reference Range Interpretation Comments Monocytes # (test code 0.5 See_Comment [Aut omated message] The = Monocytes #) system which generated this result tra nsmitted reference range : <=0.8. The reference r mitra was not used to int erpret this result as normal/abnormal . [facility]lineOuarenqNFSSSVBIOR2804-21-43 18:46:00 Test Item Value Reference Range Interpretation Comments Basophils (test code = 1.1 See_Comment [Aut omated message] The Basophils) system which ge nerated this result tra nsmitted reference range : <=1.0. The reference r mitra was not used to int erpret this result as normal/abnormal . [facility]lineKkijgwqJRGZIIZLPH4888-39-28 18:46:00 Test Item Value Reference Range Interpretation Comments Lymphocytes # (test code = Lymphocytes 1.5 1.0-5.5 #) [facility]lineGwvqcgsPIGVPDQVBH5376-19-66 18:46:00 Test Item Value Reference Range Interpretation Comments Segs-Bands # (test code = Segs-Bands #) 2.9 1.5-8.1 [facility]lineXgufwmsSEMMFCIFWX2523-46-10 18:46:00 Test Item Value Reference Range Interpretation Comments Eosinophils # (test code 0.2 See_Comment [A utomated message] The = Eosinophils #) system whic h generated this result tra nsmitted reference range : <=0.5. The reference r mitra was not used to int erpret this result as normal/abnormal . [facility]lineVrhlgfuQEPDKIWWWU8050-87-18 18:46:00 Test Item Value Reference Range Interpretation Comments Basophils # (test code 0.1 See_Comment [Aut omated message] The = Basophils #) system which generated this result tra nsmitted reference range : <=0.2. The reference r mitra was not used to int erpret this result as normal/abnormal . [facility]lineSdmrxylEQYULUQKEN1888-88-19 18:46:00 Test Item Value Reference Range Interpretation Comments PT (test code = PT) 11.2 s 12.0-14.7 [facility] ShorelineNbdlersXJAMEYYMHU3830-76-61 18:46:00 Test Item Value Reference Range Interpretation Comments INR (test code = INR) 0.82 0.85-1.17 [facility]lineNsxhvxiAAPUKJYJFS2552-93-27 18:46:00 Test Item Value Reference Range Interpretation Comments PTT (test code = PTT) 28.6 s 22.9-35.8 [facility]lineJmotdwpJGDPNBRLEV7031-33-07 18:46:00 Test Item Value Reference Range Interpretation Comments MPV (test code = MPV) 8.1 7.4-10.4 [facility]lineWalzqrmIHWGFWRKMI1871-74-26 18:46:00 Test Item Value Reference Range Interpretation Comments Platelet (test code = Platelet) 301 133-450 [facility] ShorelineGbowhbcZCKTVNKPKP2736-05-20 18:46:00 Test Item Value Reference Range Interpretation Comments RDW (test code = RDW) 14.5 11.5-14.5 [facility]lineNslceniOEMXIIFPPG4357-96-25 18:46:00 Test Item Value Reference Range Interpretation Comments RBC (test code = RBC) 4.84 4.70-6.10 [facility]lineVmezjhgTWTPFBTNFS5220-30-07 18:46:00 Test Item Value Reference Range Interpretation Comments Hgb (test code = Hgb) 14.4 14.0-18.0 [facility]lineVckdrefHHTHVWEGLG2371-83-42 18:46:00 Test Item Value Reference Range Interpretation Comments WBC (test code = WBC) 5.2 3.7-10.4 [facility]lineJfzqejkDSBILGFNWG9457-51-20 18:46:00 Test Item Value Reference Range Interpretation Comments MCH (test code = MCH) 29.8 pg 27.0-31.0 [facility]lineEfqfcbxINZVKKIKWE1839-32-96 18:46:00 Test Item Value Reference Range Interpretation Comments MCV (test code = MCV) 92.0 80.0-94.0 [facility] ShorelineLjqskbrWRMXAIYPYN5200-78-84 18:46:00 Test Item Value Reference Range Interpretation Comments Hct (test code = Hct) 44.5 42.0-54.0 [facility]lineTptcoyuUIKXOHXFFT5913-22-38 18:46:00 Test Item Value Reference Range Interpretation Comments MCHC (test code = MCHC) 32.4 32.0-36.0 [facility]CpsdhgmMEXMZOJEOT6059-76-78 18:46:00 Test Item Value Reference Range Interpretation Comments [place]-Hep C Ab (test Negative *NA*(07/22/14 code = [place]-Hep C 1:46 PM) Ab) [facility] AND [id number] 18:46:00 Test Item Value Reference Range Interpretation Comments UA Urobilinogen (test code = UA <=1.0 mg/dL 0.1-1.0 Urobilinogen) [facility] AND [id number] 18:46:00 Test Item Value Reference Range Interpretation Comments UA Sq Epi (test code = UA Sq Epi) None Seen [facility] AND [id number] 18:46:00 Test Item Value Reference Range Interpretation Comments UA Leuk Est (test Negative (07/22/14 1:46 code = UA Leuk Est) PM) [facility] AND [id number] 18:46:00 Test Item Value Reference Range Interpretation Comments UA Nitrite (test code Negative (07/22/14 1:46 = UA Nitrite) PM) [facility] AND [id number] 18:46:00 Test Item Value Reference Range Interpretation Comments UA Blood (test code = Negative (07/22/14 1:46 UA Blood) PM) [facility] AND [id number] 18:46:00 Test Item Value Reference Range Interpretation Comments UA Ketones (test code = UA Negative mg/dL Ketones) [facility] AND [id number] 18:46:00 Test Item Value Reference Range Interpretation Comments UA Bili (test code = Negative *NA*(07/22/14 UA Bili) 1:46 PM) [facility] AND [id number] 18:46:00 Test Item Value Reference Range Interpretation Comments UA Bacteria (test code = UA Occasional /HPF Bacteria) [facility] AND [id number] 18:46:00 Test Item Value Reference Range Interpretation Comments UA RBC (test code = no gt See_Comment [Automa elizabeth message] The UA RBC) system which ge nerated this result transmit elizabeth reference range : <=2. The reference range was not used to interpr et this result as margaret l/abnormal. [facility] AND [id number] 18:46:00 Test Item Value Reference Range Interpretation Comments UA WBC (test code = 1 See_Comment [Automa elizabeth message] The UA WBC) system which ge nerated this result transmit leizabeth reference range : <=5. The reference range was not used to interpr et this result as margaret l/abnormal. [facility] AND [id number] 18:46:00 Test Item Value Reference Range Interpretation Comments UA Glucose (test code = UA Glucose) 30 mg/dL [facility] AND [id number] 18:46:00 Test Item Value Reference Range Interpretation Comments UA Protein (test code = UA Negative mg/dL Protein) [facility] AND [id number] 18:46:00 Test Item Value Reference Range Interpretation Comments UA pH (test code = UA pH) 6.5 5.0-8.[address] [facility] AND [id number] 18:46:00 Test Item Value Reference Range Interpretation Comments UA Turbidity (test code = Clear (07/22/14 1:46 UA Turbidity) PM) [facility] AND [id number] 18:46:00 Test Item Value Reference Range Interpretation Comments UA Spec Grav (test code = UA Spec Grav) 1.[address] [facility] AND [id number] 18:46:00 Test Item Value Reference Range Interpretation Comments UA Color (test code = Light Yellow UA Color) *NA*(07/22/14 1:46 PM) [facility]XwqkqdpBSGJRTSHKQGT6972-82-15 18:46:00 Test Item Value Reference Range Interpretation Comments B/C Ratio (test code = B/C Ratio) 18 6-25 [facility][id number] 18:46:00 Test Item Value Reference Range Interpretation Comments A/G Ratio (test code = A/G Ratio) 1.1 0.7-1.6 [facility]MfzwqtfAHFGCZTMJJOP0482-62-08 18:46:00 Test Item Value Reference Range Interpretation Comments Globulin (test code = Globulin) 3.3 2.0-4.0 [facility] HospitalVdcwaxlVDDGXWINFZEN9680-35-01 18:46:00 Test Item Value Reference Range Interpretation Comments eGFR (test code = eGFR) 99 [facility] HospitalVoqvxguPKHCGWSHSYFL8487-75-92 18:46:00 Test Item Value Reference Range Interpretation Comments Calcium Lvl (test code = Calcium Lvl) 9.0 8.5-10.5 [facility] HospitalLibdhbpTYPRVGAUTCZF9526-26-91 18:46:00 Test Item Value Reference Range Interpretation Comments Chloride Lvl (test code = Chloride Lvl) 106 95-109 [facility] HospitalQdwxuqxYARVGJJQJDGC5010-24-80 18:46:00 Test Item Value Reference Range Interpretation Comments Creatinine Lvl (test code = Creatinine 0.9 0.5-1.4 Lvl) [facility] HospitalOrvgvsoVYFBJYFWXMKH4213-35-41 18:46:00 Test Item Value Reference Range Interpretation Comments Potassium Lvl (test code = Potassium 4.2 3.5-5.1 Lvl) [facility] HospitalYhturnyPLIRKITBBLOK6992-15-77 18:46:00 Test Item Value Reference Range Interpretation Comments Sodium Lvl (test code = Sodium Lvl) 139 135-145 [facility] HospitalAortkdqUFFEDOXVJOUF7226-80-38 18:46:00 Test Item Value Reference Range Interpretation Comments CO2 (test code = CO2) 24 24-32 [facility] HospitalUgxtrgmQAVLBZGTVDNK7092-48-85 18:46:00 Test Item Value Reference Range Interpretation Comments BUN (test code = BUN) 16 7-22 [facility] HospitalWkkslezYYUVDFAUKBVG8565-68-92 18:46:00 Test Item Value Reference Range Interpretation Comments Glucose Lvl (test code = Glucose Lvl) 141 70-99 [facility] HospitalDrqitemBXZNDXKTJXFD9734-15-64 18:46:00 Test Item Value Reference Range Interpretation Comments Albumin Lvl (test code = Albumin Lvl) 3.6 3.5-5.0 [facility] HospitalZjjtgcgTYVEFJGSKAMQ6818-34-75 18:46:00 Test Item Value Reference Range Interpretation Comments Alk Phos (test code = Alk Phos) 65 39-136 [facility] HospitalQcqxonlAOSOQHQLIFQF2309-50-29 18:46:00 Test Item Value Reference Range Interpretation Comments Bili Total (test code = Bili Total) 0.3 0.2-1.3 [facility] HospitalSdbixauJLXCOHGQLXQU1161-80-04 18:46:00 Test Item Value Reference Range Interpretation Comments ALT (test code = ALT) 100 See_Comment [Auto mated message] The system which ge nerated this result transmit elizabeth reference range : <=65. The reference range was not used to interpr et this result as margaret l/abnormal. [facility] HospitalYnzuclfOECJHDFPWVWH9433-87-56 18:46:00 Test Item Value Reference Range Interpretation Comments AST (test code = AST) 53 See_Comment [Auto mated message] The system which ge nerated this result transmit elizabeth reference range : <=37. The reference range was not used to interpr et this result as margaret l/abnormal. [facility] HospitalKcjmlydSTFXXANDBXAS7594-89-18 18:46:00 Test Item Value Reference Range Interpretation Comments Total Protein (test code = Total 6.9 6.4-8.4 Protein) [facility]foqjwsUVPGYAXJAB8040-86-19 18:46:00 Test Item Value Reference Range Interpretation Comments Eosinophils (test code = 4.2 See_Comment [A utomated message] The Eosinophils) system which ge nerated this result tra nsmitted reference range : <=4.0. The reference r mitra was not used to int erpret this result as normal/abnormal . [facility]lineEhlpcodTMGQXLYETE0678-25-63 18:46:00 Test Item Value Reference Range Interpretation Comments Segs (test code = Segs) 56.4 45.0-75.0 [facility]lineZxsmkwsCKEUJQMGAQ6641-58-19 18:46:00 Test Item Value Reference Range Interpretation Comments Monocytes (test code = Monocytes) 10.3 2.0-12.0 [facility]linePwfminrMNPLMHXIVT8937-28-95 18:46:00 Test Item Value Reference Range Interpretation Comments Lymphocytes (test code = Lymphocytes) 28.0 20.0-40.0 [facility]lineZnysiuaFQSWLSFJFJ2598-93-32 18:46:00 Test Item Value Reference Range Interpretation Comments Monocytes # (test code 0.5 See_Comment [Aut omated message] The = Monocytes #) system which generated this result tra nsmitted reference range : <=0.8. The reference r mitra was not used to int erpret this result as normal/abnormal . [facility]lineSkccqqsPOKMQPQSOP5366-70-73 18:46:00 Test Item Value Reference Range Interpretation Comments Basophils (test code = 1.1 See_Comment [Aut omated message] The Basophils) system which ge nerated this result tra nsmitted reference range : <=1.0. The reference r mitra was not used to int erpret this result as normal/abnormal . [facility]lineElsnyknHQKREJJVMI6230-66-79 18:46:00 Test Item Value Reference Range Interpretation Comments Lymphocytes # (test code = Lymphocytes 1.5 1.0-5.5 #) [facility]lineIqigqjeDHOIAAFOCT4947-75-00 18:46:00 Test Item Value Reference Range Interpretation Comments Segs-Bands # (test code = Segs-Bands #) 2.9 1.5-8.1 [facility]lineKmrewhhZPIIQZRDLP1646-38-73 18:46:00 Test Item Value Reference Range Interpretation Comments Eosinophils # (test code 0.2 See_Comment [A utomated message] The = Eosinophils #) system whic h generated this result tra nsmitted reference range : <=0.5. The reference r mitra was not used to int erpret this result as normal/abnormal . [facility]lineIuclvlpHTFWCRLSPD7820-25-83 18:46:00 Test Item Value Reference Range Interpretation Comments Basophils # (test code 0.1 See_Comment [Aut omated message] The = Basophils #) system which generated this result tra nsmitted reference range : <=0.2. The reference r mitra was not used to int erpret this result as normal/abnormal . [facility]lineJdcnvatVTYNFSIPKB4241-48-35 18:46:00 Test Item Value Reference Range Interpretation Comments PT (test code = PT) 11.2 s 12.0-14.7 [facility]lineYqrafdaOZCTVEBMHR4769-80-18 18:46:00 Test Item Value Reference Range Interpretation Comments INR (test code = INR) 0.82 0.85-1.17 [facility]lineKekhbkfPSJPFBLFZC0652-18-37 18:46:00 Test Item Value Reference Range Interpretation Comments PTT (test code = PTT) 28.6 s 22.9-35.8 [facility]lineQcmrnywHEFUZZJQCE4805-37-11 18:46:00 Test Item Value Reference Range Interpretation Comments MPV (test code = MPV) 8.1 7.4-10.4 [facility] ShorelineLyvlsdyJOANMWGXTG3928-12-64 18:46:00 Test Item Value Reference Range Interpretation Comments Platelet (test code = Platelet) 301 133-450 [facility]lineCdghzwzORJXYEAGDD5523-81-52 18:46:00 Test Item Value Reference Range Interpretation Comments RDW (test code = RDW) 14.5 11.5-14.5 [facility] ShorelineRkoywtnOIZJYOWPIN5948-84-10 18:46:00 Test Item Value Reference Range Interpretation Comments RBC (test code = RBC) 4.84 4.70-6.10 [facility]lineEsfmmmuHDAWTNVPCR3269-28-87 18:46:00 Test Item Value Reference Range Interpretation Comments Hgb (test code = Hgb) 14.4 14.0-18.0 [facility]lineXawpayjEPPUKXHZOO0736-53-89 18:46:00 Test Item Value Reference Range Interpretation Comments WBC (test code = WBC) 5.2 3.7-10.4 [facility]lineQqelfizFKNWTVXQTB1892-65-79 18:46:00 Test Item Value Reference Range Interpretation Comments MCH (test code = MCH) 29.8 pg 27.0-31.0 [facility] CenterDeqjtvuOXHHNTNVLZ6497-37-45 18:46:00 Test Item Value Reference Range Interpretation Comments MCV (test code = MCV) 92.0 80.0-94.0 [facility] WjmtmutKUBOPVEJOA2048-57-53 18:46:00 Test Item Value Reference Range Interpretation Comments Hct (test code = Hct) 44.5 42.0-54.0 [facility] CenterUrndndxGCNHTFYWCM6420-74-63 18:46:00 Test Item Value Reference Range Interpretation Comments MCHC (test code = MCHC) 32.4 32.0-36.0 [facility] CenterBuysxgdCAVJWVZYVZ0354-19-28 18:46:00 Test Item Value Reference Range Interpretation Comments Kan[place]-Hep C Ab (test Negative *NA*(07/22/14 code = Kan[place]-Hep C 1:46 PM) Ab) [facility] AND [id number] 18:46:00 Test Item Value Reference Range Interpretation Comments UA Urobilinogen (test code = UA <=1.0 mg/dL 0.1-1.0 Urobilinogen) [facility] AND [id number] 18:46:00 Test Item Value Reference Range Interpretation Comments UA Sq Epi (test code = UA Sq Epi) None Seen [facility] AND [id number] 18:46:00 Test Item Value Reference Range Interpretation Comments UA Leuk Est (test Negative (07/22/14 1:46 code = UA Leuk Est) PM) [facility] AND [id number] 18:46:00 Test Item Value Reference Range Interpretation Comments UA Nitrite (test code Negative (07/22/14 1:46 = UA Nitrite) PM) [facility] AND [id number] 18:46:00 Test Item Value Reference Range Interpretation Comments UA Blood (test code = Negative (07/22/14 1:46 UA Blood) PM) [facility] AND [id number] 18:46:00 Test Item Value Reference Range Interpretation Comments UA Ketones (test code = UA Negative mg/dL Ketones) [facility] AND [id number] 18:46:00 Test Item Value Reference Range Interpretation Comments UA Bili (test code = Negative *NA*(07/22/14 UA Bili) 1:46 PM) [facility] AND [id number] 18:46:00 Test Item Value Reference Range Interpretation Comments UA Bacteria (test code = UA Occasional /HPF Bacteria) [facility] AND [id number] 18:46:00 Test Item Value Reference Range Interpretation Comments UA RBC (test code = no gt See_Comment [Automa elizabeth message] The UA RBC) system which ge nerated this result transmit elizabeth reference range : <=2. The reference range was not used to interpr et this result as margaret l/abnormal. [facility] AND [id number] 18:46:00 Test Item Value Reference Range Interpretation Comments UA WBC (test code = 1 See_Comment [Automa elizabeth message] The UA WBC) system which ge nerated this result transmit elizabeth reference range : <=5. The reference range was not used to interpr et this result as margaret l/abnormal. [facility] AND [id number] 18:46:00 Test Item Value Reference Range Interpretation Comments UA Glucose (test code = UA Glucose) 30 mg/dL [facility] AND [id number] 18:46:00 Test Item Value Reference Range Interpretation Comments UA Protein (test code = UA Negative mg/dL Protein) [facility] AND [id number] 18:46:00 Test Item Value Reference Range Interpretation Comments UA pH (test code = UA pH) 6.5 5.0-8.[address] [facility] AND [id number] 18:46:00 Test Item Value Reference Range Interpretation Comments UA Turbidity (test code = Clear (07/22/14 1:46 UA Turbidity) PM) [facility] AND [id number] 18:46:00 Test Item Value Reference Range Interpretation Comments UA Spec Grav (test code = UA Spec Grav) 1.[address] [facility] AND [id number] 18:46:00 Test Item Value Reference Range Interpretation Comments UA Color (test code = Light Yellow UA Color) *NA*(07/22/14 1:46 PM) Abel Walls Notes Date/Time Note Provider Source 2017-01-31 21:00:10-00:00 [facility] Discharge Summary PATIENT NAME: CHARO KAYE: Royal Reed Admitted: MR NUMBER: [id number] DISCHARGED: 01/04/2017 12:2 2:00 DATE OF ADMISSION: 12/23/2016 DATE OF DISCHARGE: 01/04/2017 REASON FOR ADMISSION: The patient was admitted for a chief complaint o f disorganized thoughts and behaviors, apparent delusions. He was brought to [facility] by the [facility] after he was arrested on criminal mi schief. While in penitentiary, he displayed disorganized behavior and disorganized thoughts, severe delusions and auditory, visual, and tactile hallucinations . ADMITTING DIAGNOSES: 1. Alcohol withdrawal. 2. Alcohol-induced psychosis. FINAL DIAGNOSES: AXIS I: Substance-induced psychosis with alcohol use disorder. AXIS II: None. 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 AXIS IV: Disability receives Social Security, re cently released from longterm and poor social support. PRINCIPAL PROCEDURES: Psychopharmacotherapy. SPECIAL PROCEDURES: None. HOSPITAL COURSE: Mr. Charo Kaye is a 56-year-old male who was admitted to Dr. Shea's team from 12/23/2016 to 01/04/2017. The patient was on unit restriction along with elopement and standard PI CU precautions. The patient was also placed on one-to-one observation as his behavior and delusions were very disorganized with the patient was a harm to himself. The patient was started on an Ativan 2 mg 3 times per day taper, thiamine, folate, and multivitamin. The patient was also started on tr azodone 50 mg at bedtime p.r.n. for sleep and Vistaril 50 mg every 6 hour s p.r.n. for anxiety. The patient did not demonstrate any improvement in h is initial 4 days of stay. As we were worried about alcohol hallucinosis or delirium tremens, we maintained the Ativan taper through the extended time that he was receiving 2 mg t.i.d. for the first 4 days and then we began to taper. It became apparent, after the patient's continued disorgan ized behavior, delusions and audio and visual hallucinations as well as tacti le hallucinations that the Ativan may have extended the length of these beh aviors. Because it was not until after we began to taper the Ativan down, laverne elizabeth began to improve. Once the patient was detoxed from alcohol and then detoxe d from Ativan, he became oriented to person, place, time and situation. W e were able to obtain a much better psychiatric history, health history and f amily history. On day of discharge, the patient was suitable for discharg e based on resolution of his Patient Name: CHARO KAYE [id number] admitting symptoms, of disorganized behavior, di sorganized thinking, severe delusions and hallucinations. His mood was okay. His affect was congruent. His judgment was fair and his insight was fair. The patient plans to return home. Continue with psychotropic medications and followup with outpatient psychiatrist. MENTAL STATUS EXAM ON DISCHARGE: The patient appeared well groomed, well nourishe d, age-appropriate male, with good eye contact, and a calm attitude . Speech is regular rate and rhythm. Volume is low and disarticulation was mi nimally effective. His mood was good. His affect is congruent. Perception: D enied any audio visual, or tactile hallucinations, and denies delusions. Th ought process was linear and goal directed. Thought content: Denied suicidal and homicidal ideation. Denied paranoia. Insight and judgment were both fair. Cognition: He was alert and oriented to person, place, time and ci rcumstance. Memory and attention, both grossly intact. [facility] e: Appropriate for age and education. His gait was normal. LABORATORY DATA: No relevant labs on discharge. DRUG REACTIONS OR INTERACTIONS: It became apparent that on admission, the patien t was having audiovisual and tactile hallucinations in the context of alcohol intoxication and alcohol withdrawal; however, this behavior continued aft er he detoxed from alcohol, but was subsequently on benzodiazepines. Therefo re, I feel this patient demonstrated disorganized behavior and severe de lusions with audio, visual and tactile hallucinations. He is sensitive to b enzodiazepines and benzodiazepines started by the inpatient psychia tric team attributed to these delusions. DISCHARGE MEDICATIONS: Zoloft 50 mg p.o. daily. DISCHARGE INSTRUCTIONS: Instructed were provided to the patient. PHYSICAL ACTIVITY: As tolerated. DRIVING RESTRICTIONS: None. DIET RESTRICTIONS: None. FOLLOWUP: Patient Name: CHARO KAYE [id number] The patient has a followup appointment scheduled with [facility] in [place] on 01/23/2017 at 1:30 p.m. and has been given specific instructions on how to get to the appointment. DISPOSITION: Mr. Charo Kaye is currently stable and tolerati ng all his medications. We are discharging the patient to home. The patient 's prognosis is poor as he has a history of noncompliance. However, if he i s able to stay compliant with his psychotropic medications and consistent with outpatient followup, he should do very well. He is also encouraged to ab stain from illicit drug use and alcohol use and to not discontinue any of hi s psychotropic medications at the guidance of his outpatient psychiatrist. The patient has also met with the oncology social worker to obtain appropriate followup report. The importance on following through with this plan has been review ed with the patient. The patient understands that compliance will be cruc ial to his recovery. He has been given the [facility] Crisis hotline number and the information about the [facility], if he wishes to obtain t herapy. MD Ramana Winn MD MH/BECKY TD: 01/16/2017 02:03 CC:Ramana Shea MD Electronically Authenticated by: Royal Perez MD On 01/17/2017 02:55 PM [employer] Electronically Authenticated by: Ramana Shea MD On 02/15/2017 12:47 PM [employer] 2017-01-06 13:35:23-00:00 [facility] Progress Note PATIENT NAME: CHARO KAYE PHYSICIAN: Shiva hopper MD Admitted: MR NUMBER: [id number] DISCHARGED: DATE OF SERVICE: 12/30/2016 TIME SEEN: 16:40. SUBJECTIVE: I was asked to see this patient by Dr. Ramana salazar's service, particularly resident, Dr. Perez, with regard to this patient' s condition. Apparently, this patient was brought in with roberto e form of psychosis and altered mental status from [facility]. Apparently, there was concern for Wernicke encephalopathy and had fini shed a high dose intramuscular thiamine regimen, as well as benzo diazepine taper. He has been also started on antipsychotic medications. Appar ently, the patient's condition according to the psychiatry service madera s not improved markedly and he is still very delusional with bizarre behavio r and acting inappropriately. Apparently, this was a clear change of his base line. We are asked to evaluate this patient. 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 It is unclear whether this i s substantiated or not; however, the patient apparently was told that he has some sort of growth in the back of his skull that may be life threateni ng. He claims that it is "terminal." He has not had much in the way of fo llowup. Also, apparently he had some issues with pain in his legs as well an d apparently had muscle biopsies performed in his upper thigh region abo tx a couple years ago and apparently he saw a neuromuscular specialist at that time. He was told that he just needed to take "vitamin D." He was not t old that he had any sort of systemic disease. According to staffing, his behavior remains biza rre. Apparently, he was manipulating his own feces today. He seems to be fixated on what he calls is a "sh unt," however, he states that this is something associated with the IVC filter that was placed in 2003. He was diagnosed with a DVT the year prior and appa rently was on anticoagulation, then had issues with his leg be coming swollen and having clot burden all the way from the foot to the thi gh. He states that care was received at [facility] with regards to t his issue. PHYSICAL EXAMINATION: VITAL SIGNS: Temperature 98.0 degrees Fahrenheit , heart rate 81, respiratory rate 16, blood pressure 135/81. GENERAL: This patient is talking to me, appears focused, at times inappropriate with some of the answers I give hi m; however, when redirected appears to be making sensible speech. He knows laverne elizabeth is at [facility]. [facility] Progress Note PATIENT NAME: CAHRO KAYE PHYSICIAN: Shiva hopper MD Admitted: MR NUMBER: [id number] DISCHARGED: DATE OF SERVICE: 12/30/2016 TIME SEEN: 16:40. SUBJECTIVE: I was asked to see this patient by Dr. Ramana salazar's service, particularly resident, Dr. Perez, with regard to this patient' s condition. Apparently, this patient was brought in with roberto e form of psychosis and altered mental status from [facility]. Apparently, there was concern for Wernicke encephalopathy and had fini shed a high dose intramuscular thiamine regimen, as well as benzo diazepine taper. He has been also started on antipsychotic medications. Appar ently, the patient's condition according to the psychiatry service madera s not improved markedly and he is still very delusional with bizarre behavio r and acting inappropriately. Apparently, this was a clear change of his base line. We are asked to evaluate this patient. 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 It is unclear whether this i s substantiated or not; however, the patient apparently was told that he has some sort of growth in the back of his skull that may be life threateni ng. He claims that it is "terminal." He has not had much in the way of fo llowchelsy. Also, apparently he had some issues with pain in his legs as well an d apparently had muscle biopsies performed in his upper thigh region abo ut a couple years ago and apparently he saw a neuromuscular specialist at that time. He was told that he just needed to take "vitamin D." He was not t old that he had any sort of systemic disease. According to staffing, his behavior remains biza rre. Apparently, he was manipulating his own feces today. He seems to be fixated on what he calls is a "sh unt," however, he states that this is something associated with the IVC filter that was placed in 2003. He was diagnosed with a DVT the year prior and pancho singh was on anticoagulation, then had issues with his leg be coming swollen and having clot burden all the way from the foot to the thi gh. He states that care was received at [facility] with regards to t his issue. PHYSICAL EXAMINATION: VITAL SIGNS: Temperature 98.0 degrees Fahrenheit , heart rate 81, respiratory rate 16, blood pressure 135/81. GENERAL: This patient is talking to me, appears focused, at times inappropriate with some of the answers I give hi m; however, when redirected appears to be making sensible speech. He knows h glenn is at [facility]. Patient Name: CHARO KAYE [id number] CHEST: Clear to auscultation bilaterally. No whe ezes, rhonchi, or rales. CARDIOVASCULAR: S1, S2 audible. Rhythm is regula r. No gallops. ABDOMEN: Soft, nontender. Normoactive bowel soun ds. Nondistended. EXTREMITIES: Nonpitting edema noted in both extr emities. Distal extremities are warm. NEUROLOGIC: Tongue is midline. No facial symmetr y appreciated. No tremor appreciated. No nystagmus appreciated. Strength appears to be preserved about 4+/5 in the lower extremities, 5/5 in the upper extremities. LABORATORY DATA: On the the patient had a serologic workup, he had a sodium of 149, chloride of 107, BUN of 32, creatinine 0.8. He h ad TSH of 1.03. LDL of 123. Lower extremity duplex ultrasound were negative for DVT. An A1c of 5.1%. An abdominal x-ray showing an IVC filter being i n place. An ammonia collected today was 25, within normal range. ASSESSMENT: This is a patient who apparently is still enceph alopathic/delirious despite treatment for Wernicke's encephalopathy, as well as an unspecified psychoses. There is a concern that there may be a medical issue going on with this patient. From metabolic standpoint, we should be repeatin g this patient's BMP though appears that the patient has been eating well an d I suspect this should be better, however, we will rule out a metabolic is yvonne, especially in light of the patient's elevated sodium prior. However, with regard to this patient's claims of having some sort of intracranial abnormality that is "terminal," we will get a CT of the brain stat and assess for any structural abnormalities . If not performed, we will check a urinalysis as well to ensure there is no infected urine in this patient. I would recommend neurology consultation to work up further issues regard to his delirium. It appears that the patient had been treated for presumed alcohol withdrawal for about 6 days so far, it should be noted that sometimes issues related to alcohol withdrawal with delirium tremens may las t longer than the traditional 1 week in some cases, so this caveat may need to be held. However, we will workup other medical issues here. Patient Name: CHARO KAYE [id number] CHEST: Clear to auscultation bilaterally. No whe ezes, rhonchi, or rales. CARDIOVASCULAR: S1, S2 audible. Rhythm is regula r. No gallops. ABDOMEN: Soft, nontender. Normoactive bowel soun ds. Nondistended. EXTREMITIES: Nonpitting edema noted in both extr emities. Distal extremities are warm. NEUROLOGIC: Tongue is midline. No facial symmetr y appreciated. No tremor appreciated. No nystagmus appreciated. Strength appears to be preserved about 4+/5 in the lower extremities, 5/5 in the upper extremities. LABORATORY DATA: On the the patient had a serologic workup, he had a sodium of 149, chloride of 107, BUN of 32, creatinine 0.8. He h ad TSH of 1.03. LDL of 123. Lower extremity duplex ultrasound were negative for DVT. An A1c of 5.1%. An abdominal x-ray showing an IVC filter being i n place. An ammonia collected today was 25, within normal range. ASSESSMENT: This is a patient who apparently is still enceph alopathic/delirious despite treatment for Wernicke's encephalopathy, as well as an unspecified psychoses. There is a concern that there may be a medical issue going on with this patient. From metabolic standpoint, we should be repeatin g this patient's BMP though appears that the patient has been eating well an d I suspect this should be better, however, we will rule out a metabolic is yvonne, especially in light of the patient's elevated sodium prior. However, with regard to this patient's claims of having some sort of intracranial abnormality that is "terminal," we will get a CT of the brain stat and assess for any structural abnormalities . If not performed, we will check a urinalysis as well to ensure there is no infected urine in this patient. I would recommend neurology consultation to work up further issues regard to his delirium. It appears that the patient had been treated for presumed alcohol withdrawal for about 6 days so far, it should be noted that sometimes issues related to alcohol withdrawal with delirium tremens may las t longer than the traditional 1 week in some cases, so this caveat may need to be held. However, we will workup other medical issues here. Patient Name: CHARO KAYE [id number] We will continue to follow. MD PEDRO Currie/AURORA/CTV TD: 12/30/2016 18:08 Patient Name: CHARO KAYE [id number] We will continue to follow. MD PEDRO Currie/AURORA/CTV TD: 12/30/2016 18:08 Electronically Authenticated by: Shiva Stack MD On 01/06/2017 12:12 PM [employer] MANAGER 2017-01-05 17:10:42-00:00 [facility] History and Physical PATIENT NAME: CHARO KAYE PHYSICIAN: Lisa rockwell MD Admitted: MR NUMBER: [id number] DISCHARGED: DATE OF SERVICE: 12/24/2016 The patient was seen and examined today. CONSULTING PHYSICIAN: Ramana Shea MD. REASON FOR CONSULTATION: Medical management. HISTORY OF PRESENT ILLNESS: The patient is a 55-year-old gentleman , an extremely unreliable and poor historian. Does not answer appropriately, a pparently transferred here from [facility] for bizarre behavior. At this time, he keeps insisting that he had a DVT in the right lower e xtremity in 2002, and he does not remember what he was treated with, but he do es not remember a placement of IVC filter, which he claims has migrated all the way up to his heart. No cardiorespiratory symptoms at this time. Routine labs at this time only show dehydration and elevated cholesterol level. Hemo dynamically stable. The patient is not able to make any reliable history at this point of time. REVIEW OF SYSTEMS: Could not be obtained. No cardiorespiratory, GI symptoms, per nursing staff, no GI bleed. No fever. No cough, cold, vomiting, diarrhea. MEDICATIONS: Per APR. ALLERGIES: HE DOES ADMIT THAT HE IS ALLERGIC TO PENICILLIN. PAST MEDICAL HISTORY: DVT right lower extremity 2002. PAST SURGICAL HISTORY: The only history that I was able to obtain was I VC filter placement. FAMILY HISTORY: Could not obtain. PERSONAL HISTORY: He is [facility] resident. 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 PHYSICAL EXAMINATION: VITAL SIGNS: Temperature is 98.4, pulse 88, resp iratory rate 18, blood pressure 106/85. GENERAL: Suffused face. Has some mild tremors, n o asterixis. HEENT: Atraumatic, normocephalic. Pupils are equ al, round, reactive to light. Mucosa is dry. No pharyngeal erythema or exudates. NECK: Movements within normal limits. No JVD. No spinal or CVA tenderness. [facility] History and Physical LUNGS: Vesicular breath sounds. No wheezing, no creps. HEART: S1, S2 plus regular. ABDOMEN: Soft, obese, nontender, bowel sounds no rmoactive. MUSCULOSKELETAL: No swelling in the joints on e upper and lower extremities bilateral. No rashes noted. Right lo wer extremity slightly more swollen than the left, likely given history of r ight lower extremity DVT in the past. NEUROLOGIC: Limited. The patient does not follow commands well. Cranial nerves no facial asymmetry. Facial sensation fel t. No ptosis. Direct and consensual light reflex intact. Mandibular tongu e as well as a palatal movement appears to be within normal limits. ___ test bilaterally symmetrical. No pronator drift. Motor strength i s 5/5. Sensation grossly intact. No cerebellar signs. LABORATORY DATA: Sodium 149, potassium 3.8, chloride 107, anion g ap 18, BUN 32. LFTs normal. Cholesterol 205, HDL 68. WBC 9.4, hemoglobin 14. 9. PROBLEM LIST: 1. 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 2. Hypernatremia in the setting of prerenal azot emia/dehydration. 3. High anion gap metabolic acidosis present at the time of admission. 4. Hyperlipidemia. PLAN: Medications, orders, labs were reviewed. He fly ined stable from medical standpoint at this time. I would encourage free water intake at this time for his dehydration. We will put him on a low ch olesterol diet. Would not start him on medications yet. Rest of the labs l ook appropriate at this time. He is on thiamine 100 mg intramuscular guanako ly, would recommend to consider increasing the dose to 500 mg IM daily for 5 days and then tapering it off 100 mg daily. Please see orders for more details. Assessment and plan discussed with nursing staff . Ambulation for DVT prophylaxis at this time. No GI symptoms at this time. Would consider a PPI if he develops any alcohol related gastritis. Thank you for the consult. Please call me back w ith any questions or concern. MD NATHALIE Gray/JESSI/MAX [facility] History and Physical TD: 12/24/2016 17:03 Electronically Authenticated and Edited by: Lisa Beard MD On 01/05/2017 05:10 PM [employer] MANAGER 2016-12-30 16:09:20-00:00 [facility] History and Physical PATIENT NAME: CHARO KAYE PHYSICIAN: Jose David Francisco Admitted: MR NUMBER: [id number] DISCHARGED: ATTENDING PHYSICIAN: Ramana Shea MD INFORMANT: The patient skilled nursing warrant. CHIEF COMPLAINT: "I'm hungry." HISTORY OF PRESENT ILLNESS: Mr. Charo Kaye is a 55-year-old male with self- reported past psychiatric history of bipolar disorder, depression, anxiety , PTSD, alcohol use, that presented from [facility] on a detenti on warrant secondary to smearing fecal matter on surrounding responding to internal stimuli, not eating or drinking. He arrived at [facility] on 12/20/2016 for criminal mischief of charges (per the patient, h e may have had a few drinks and was pulled over driving. He would not specif y the amount) due to aggression towards the nurses and intake. The pa tient was given 10 mg of Haldol, 2 mg of Ativan,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
[2022-07-04] MEDS ORDERED: ONDANSETRON 4 MG/2 ML VIAL ONE (00:11)
[2022-07-04] MEDS ORDERED: HALOPERIDOL LACT 5 MG/ML INJ ONE (00:11)
[2022-07-04] MEDS ORDERED: NA CHLORIDE 0.9% 500 ML ONE (00:11)
[2022-07-04 00:41] LABS: Absolute Lymphocytes (CBC) 0.9 K/uL (0.7-4.9); Hematocrit 25.3 % (39.6-49.0); MCV 86.4 fL (80-100); MPV 6.9 fL (7.6-11.3); RBC Red Blood Cell Count 2.93 M/uL (4.33-5.43)
[2022-07-04 01:03] LABS: Albumin 3.5 g/dL (3.4-5.0); Bilirubin Total 0.5 mg/dL (0.2-1.0); Potassium 3.6 mEq/L (3.5-5.1); Protein, Total 7.7 g/dL (6.4-8.2); Troponin High Sensitivity 16.8 pg/mL (<58.9)
--- NOTE | 2022-07-04 02:11 | ER ---
Nurse's Notes [facility] Name: Kevin Kaye Age: 61 yrs Sex: Male : 1960 Arrival Date: 07/03/2022 Time: 23:21 Bed 20 Private MD: Diagnosis: Nausea with vomiting, unspecified Presentation: 07/03 23:23 Chief complaint: EMS states: 61 year old male reports nausea and vomiting that has been ha1 going on for the past two days. 23:23 Coronavirus screen: Vaccine status: Patient reports being unvaccinated. Ebola Screen: ha1 No symptoms or risks identified at this time. Initial Sepsis Screen: Does the patient meet any 2 criteria? No. Patient's initial sepsis screen is negative. Does the patient have a suspected source of infection? No. Patient's initial sepsis screen is negative. Risk Assessment: Do you want to hurt yourself or someone else? Patient reports no desire to harm self or others. Onset of symptoms was July 02, 2022. 23:23 Method Of Arrival: EMS: [facility] ha1 23:23 Acuity: ARI 3 ha1 Triage Assessment: 23:25 General: Appears comfortable, Behavior is anxious, uncooperative. Pain: Complains of ha1 pain in abdomen Pain does not radiate. Pain currently is 7 out of 10 on a pain scale. EENT: No signs and/or symptoms were reported regarding the EENT system. Neuro: Level of Consciousness is awake, alert, obeys commands, Oriented to person, place, time, situation. Cardiovascular: Capillary refill < 3 seconds Patient's skin is warm and dry. Respiratory: Airway is patent Respiratory effort is even, unlabored, Respiratory pattern is regular, symmetrical. GI: Abdomen is flat, non-distended, Bowel sounds present X 4 quads. Abd is soft and non tender X 4 quads. Reports nausea, vomiting. : No signs and/or symptoms were reported regarding the genitourinary system. Musculoskeletal: Circulation, motion, and sensation intact. Range of motion: intact in all extremities. Historical: - Allergies: 23:25 PENICILLINS (rash); ha1 - Home Meds: 23:25 Cymbalta Oral once daily [Active]; ha1 - PMHx: 23:25 Anxiety; Bipolar disorder; Depression; Schizophrenia; ha1 - Immunization history:: Adult Immunizations unknown. - Social history:: Smoking status: Patient reports use of chewing tobacco. Screenin:23 [facility] ED Fall Risk Assessment (Adult) History of falling in the last 3 months, [facility] including since admission No falls in past 3 months (0 pts) Confusion or Disorientation Yes (5 pts) Intoxicated or Sedated No (0 pts) Impaired Gait No (0 pts) Mobility Assist Device Used No (0 pt) Altered Elimination Yes (1 pt) Score/Fall Risk Level 3 or more points = High Risk Oriented to surroundings, Maintained a safe environment, Educated pt \T\ family on fall prevention, incl call for assistance when getting out of bed, Hourly rounding (assess needs \T\ fall precautionary measures) done. Abuse screen: Denies threats or abuse. Denies injuries from another. Nutritional screening: No deficits noted. Tuberculosis screening: No symptoms or risk factors identified. Assessment: 23:23 Reassessment: see triage assessment. [facility] 07/04 01:00 Reassessment: Patient and/or family updated on plan of care and expected duration. Pain ha1 level reassessed. General: Behavior is fussy, uncooperative, screaming bad words. Notified charge nurse. Charge nurse Fany in the room.. 02:00 Reassessment: Patient and/or family updated on plan of care and expected duration. Pain ha1 level reassessed. Patient is alert, oriented x 3, equal unlabored respirations, skin warm/dry/pink. requesting to be discharged. Notified Dr. Barfield Patient states feeling better. Patient states symptoms have improved. Vital Signs: 07/03 23:23 BP 150 / 87; Pulse 81; Resp 19 S; Temp 100.1(A); Pulse Ox 100% on R/A; Weight 76.2 kg; [facility] Height 5 ft. 6 in. ; 07/04 00:30 BP 163 / 74; Pulse 92; Resp 18; Pulse Ox 98% on R/A; 1 01:00 BP 156 / 74; Pulse 100; Resp 19 S; Pulse Ox 100% on R/A; [facility] 02:00 BP 145 / 64; Pulse 87; Resp 19 S; Pulse Ox 98% on R/A; [facility] 07/03 23:23 Body Mass Index 27.12 (76.20 kg, 167.64 cm) [facility] ED Course: 07/03 23:23 Patient arrived in ED. sb4 23:23 Patient has correct armband on for positive identification. Placed in gown. Bed in low ha1 position. Call light in reach. Side rails up X 1. 23:25 Arm band placed on right wrist. ha1 23:27 Shin Barfield MD is Attending Physician. bs3 07/04 00:02 Kaci Duque RN is Primary Nurse. ha1 00:15 Inserted saline lock: 22 gauge in right forearm, using aseptic technique. Blood ha1 collected. 00:28 Troponin High Sensitivity Sent. ha1 00:29 Comprehensive Metabolic Panel Sent. ha1 00:29 CBC with Diff Sent. ha1 00:29 Ethanol Sent. ha1 01:48 Triage completed. ha1 02:18 No provider procedures requiring assistance completed. IV discontinued, intact, ha1 bleeding controlled, No redness/swelling at site. Pressure dressing applied. Administered Medications: 00:28 Drug: Ondansetron IVP 8 mg Route: IVP; Site: left forearm; ha1 01:00 Follow up: Response: No adverse reaction; Nausea is decreased ha1 00:28 Drug: NS 0.9% IV 500 ml Route: IV; Rate: 1 bolus; Site: left forearm; ha1 02:20 Follow up: Response: No adverse reaction; IV Status: Completed infusion; IV Intake: ha1 500ml 01:17 Drug: HALdol (as decanoate) IM 5 mg Route: IM; Site: right deltoid; kd3 01:50 Follow up: Response: No adverse reaction; Anxiety decreased ha1 Medication: 02:19 VIS not applicable for this client. ha1 Intake: 02:20 IV: 500ml; Total: 500ml. ha1 Outcome: 02:11 Discharge ordered by . bs3 02:19 Discharged to home ambulatory. ha1 02:19 Condition: stable 02:19 Discharge instructions given to patient, Instructed on discharge instructions, follow up and referral plans. Demonstrated understanding of instructions, follow-up care. 02:20 Patient left the ED. ha1 Signatures: Ambika Hayes RN RN kd3 Kaci Duque RN RN ha1 Shin Barfield MD MD bs3 Lauren Jean PARenee PARenee sb4
--- NOTE | 2022-07-04 02:11 | EDPHYS ---
Physician Documentation [facility] Name: Kevin Kaye Age: 61 yrs Sex: Male : 1960 Arrival Date: 07/03/2022 Time: 23:21 Bed 20 Private MD: ED Physician Shin Barfield HPI: 07/03 23:39 This 61 yrs old Male presents to ER via EMS with complaints of Nausea and bs3 vomiting. 23:39 61-year-old male. bs3 07/04 02:08 Patient was recently here found to be anemic and transferred out he has a long bs3 complicated history he is being worked up for renal mass however was noncompliant with follow-up her [facility] medical record he was admitted and then discharged 2 days later he needs a work-up for possible metastatic cancer, bladder cancer workup, he is supposed to be on AC indefinitely, his IVC filter needed to be removed due to a crack. however today he came in for nausea vomiting he denies chest pain shortness of breath he notes that he has not been able to tolerate oral intake but denies abdominal pain. Historical: - Allergies: 07/03 23:25 PENICILLINS (rash); ha1 - Home Meds: 23:25 Cymbalta Oral once daily [Active]; ha1 - PMHx: 23:25 Anxiety; Bipolar disorder; Depression; Schizophrenia; ha1 - Immunization history:: Adult Immunizations unknown. - Social history:: Smoking status: Patient reports use of chewing tobacco. ROS: 07/04 02:08 Constitutional: Negative for fever, chills bs3 All other systems are negative. Exam: 02:08 Constitutional: This is a well developed, well nourished patient who is awake, alert, bs3 and in no acute distress. Head/Face: Normocephalic, atraumatic. Eyes: Pupils equal round and reactive to light, extra-ocular motions intact. Lids and lashes normal. ENT: mmm, no posterior phyarngeal erythema Neck: Trachea midline, no thyromegaly, no neck stiffness Chest/axilla: Normal chest wall appearance and motion. Nontender with no deformity. No lesions are appreciated. Cardiovascular: Regular rate and rhythm with a normal S1 and S2. symmetric pulses in upper extremities Respiratory: Lungs have equal breath sounds bilaterally, clear to auscultation, no respiratory distress Abdomen/GI: Soft, non-tender, no rebound or guarding MS/ Extremity: Patient with significant edema of his right lower extremity 3+ patient states is chronic secondary to his known DVT Neuro: Awake and alert, GCS 15, oriented to person, place, time, and situation. Cranial nerves II-XII grossly intact. Motor strength 5/5 in all extremities. Sensory grossly intact. Psych: Awake, alert, with orientation to person, place and time. Behavior, mood, and affect are within normal limits. Vital Signs: 07/03 23:23 BP 150 / 87; Pulse 81; Resp 19 S; Temp 100.1(A); Pulse Ox 100% on R/A; Weight 76.2 kg; ha1 Height 5 ft. 6 in. ; 07/04 00:30 BP 163 / 74; Pulse 92; Resp 18; Pulse Ox 98% on R/A; ha1 01:00 BP 156 / 74; Pulse 100; Resp 19 S; Pulse Ox 100% on R/A; ha1 02:00 BP 145 / 64; Pulse 87; Resp 19 S; Pulse Ox 98% on R/A; ha1 07/03 23:23 Body Mass Index 27.12 (76.20 kg, 167.64 cm) ha1 MDM: 07/03 23:27 Patient medically screened. bs3 07/04 02:08 Differential diagnosis: Nonspecific abd pain, gastritis, cholecystitis, pancreatitis, bs3 viral gastroenteritis. Data reviewed: vital signs, nurses notes. ED course: We will check labs hydrate give antiemetic and reassess. ED course: I was called to the bedside patient feeling much better requesting to go home his hemoglobin is improved from prior his labs are otherwise negative for acute pathology will discharge home. ED course: His EKG was performed at 2337 it was normal sinus rhythm at [address] elevations or depressions QTc 424 as interpreted by myself. 07/03 23:37 Order name: CBC with Diff; Complete Time: 01:25 bs3 07/03 23:37 Order name: Comprehensive Metabolic Panel; Complete Time: 01:25 bs3 07/03 23:37 Order name: Troponin High Sensitivity; Complete Time: 01:25 bs3 07/03 23:37 Order name: Lipase; Complete Time: 01:25 bs3 07/03 23:37 Order name: Ethanol; Complete Time: 01:25 bs3 07/03 23:37 Order name: EKG - Nurse/Tech; Complete Time: 00:28 bs3 Administered Medications: 00:28 Drug: Ondansetron IVP 8 mg Route: IVP; Site: left forearm; ha1 01:00 Follow up: Response: No adverse reaction; Nausea is decreased ha1 00:28 Drug: NS 0.9% IV 500 ml Route: IV; Rate: 1 bolus; Site: left forearm; ha1 02:20 Follow up: Response: No adverse reaction; IV Status: Completed infusion; IV Intake: ha1 500ml 01:17 Drug: HALdol (as decanoate) IM 5 mg Route: IM; Site: right deltoid; kd3 01:50 Follow up: Response: No adverse reaction; Anxiety decreased ha1 Disposition Summary: 07/04/22 02:11 Discharge Ordered Location: Home bs3 Problem: new bs3 Symptoms: have improved bs3 Condition: Stable bs3 Diagnosis - Nausea with vomiting, unspecified bs3 Followup: bs3 - With: Private Physician - When: 1 week - Reason: Re-evaluation by your physician Discharge Instructions: - Discharge Summary Sheet bs3 - Nausea and Vomiting, Adult bs3 Forms: - Medication Reconciliation Form bs3 - Thank You Letter bs3 - Antibiotic Education bs3 - Prescription Opioid Use bs3 Signatures: Dispatcher [employer] Ambika Suazo RN RN kd3 Kaci Duque RN RN ha1 Shin Barfield MD MD bs3 Corrections: (The following items were deleted from the chart) 04:45 02:08 Patient was recently here found to be anemic and transferred out he has a long bs3 complicated history he is being worked up for renal mass however was noncompliant with follow-up her [facility]'s medical record he was admitted and then discharged 2 days later he needs a work-up for possible metastatic cancer however today he came in for nausea vomiting he denies chest pain shortness of breath he notes that he has not been able to tolerate oral intake but denies abdominal pain. bs3 04:46 02:08 Constitutional: This is a well developed, well nourished patient who is awake, bs3 alert, and in no acute distress. Head/Face: Normocephalic, atraumatic. Eyes: Pupils equal round and reactive to light, extra-ocular motions intact. Lids and lashes normal. ENT: mmm, no posterior phyarngeal erythema Neck: Trachea midline, no thyromegaly, no neck stiffness Chest/axilla: Normal chest wall appearance and motion. Nontender with no deformity. No lesions are appreciated. Cardiovascular: Regular rate and rhythm with a normal S1 and S2. symmetric pulses in upper extremities Respiratory: Lungs have equal breath sounds bilaterally, clear to auscultation, no respiratory distress Abdomen/GI: Soft, non-tender, no rebound or guarding MS/ Extremity: Patient with significant edema of his right lower extremity 3+ patient states is chronic secondary to his known DVT Neuro: Awake and alert, GCS 15, oriented to person, place, time, and situation. Cranial nerves II-XII grossly intact. Motor strength 5/5 in all extremities. Sensory grossly intact. Psych: Awake, alert, with orientation to person, place and time. Behavior, mood, and affect are within normal limits. bs3
[2022-07-04 02:31] VITALS: TEMP 100.1
[2022-07-04 02:50] VITALS: BP 145/64; O2SAT 98
--- NOTE | 2022-07-06 05:02 | EKG ---
Test Date: 2022-07-03 Test Time: 23:37:50 Clinical Haematologist: SHERON MEASUREMENT RESULTS: Intervals: Rate: 80 DE: 156 QRSD: 78 QT: 368 QTc: 424 Gays: P: 42 DE: 156 QRS: 50 T: 17 INTERPRETIVE STATEMENTS: Normal sinus rhythm Normal ECG Compared to ECG 06/20/2022 22:51:22 No significant changes Electronically Signed On 07-06-22 04:55:13 CDT by Paco Quach
== END 2022-07-04 02:20 | disposition home or self-care (01) ==
LOC: ER 23:21
DX: R11.2 Nausea with vomiting, unspecified (principal); F17.220 Nicotine dependence, chewing tobacco, uncomplicated; F20.9 Schizophrenia, unspecified; Z88.0 Allergy status to penicillin
CPT/HCPCS: 93005; 85025; 36415; 84484; 83690; 80053; J1630; J2405; J7040; G0480

== ENCOUNTER 2022-07-11 17:26 | Emergency (ER) | payer OTHER ==
--- OUTSIDE RECORDS SUMMARY | 2022-07-11 17:51 | XMS REPORT | Continuity of Care Document ---
:1960 Author Organization [facility] t Address [address] [facility]. [address] [place] [address] Care Team Providers Name Role Phone Asked, No Pcp Primary Care Physician Unavailable [id number] Attending Clinician Unavailable IZABELA PHAM Attending Clinician Unavailable IZABELA PHAM Attending Clinician Unavailable LAWRENCE PETERSON Attending Clinician Unavailable LAWRENCE PETERSON Attending Clinician Unavailable ROBINA BECERRIL Attending Clinician Unavailable ANA TERRAZAS Attending Clinician Unavailable Ana Terrazas MD Attending Clinician RAMANA CRUZ Attending Clinician Unavailable Ángel Murray MD Attending Clinician Elyse CARTER, Ramana Simon Attending Clinician TRACEY TRINIDAD Attending Clinician Unavailable Chris CARTER, Hilda Garcia Attending Clinician Tracey Trinidad DO Attending Clinician Jerrica CARTER, Robina Valdez Attending Clinician Kaden CARTER, Sunny Attending Clinician [phone] Fabienne CARTER, Olga Attending Clinician Kendra CARTER, Laureen Attending Clinician LAUREEN MOORE Attending Clinician Unavailable Doctor Unassigned, [place] Attending Clinician Unavailable Kvng CORONADO, Elyssa Thornton Attending Clinician Unavailable ALLAN LYNCH Attending Clinician Unavailable Meche Perry Attending Clinician Luis Huerta DO Attending Clinician Jaye Palafox MD Attending Clinician Lance Neal DO Attending Clinician RENEE PAREKH Attending Clinician Unavailable WOO DURAN Attending Clinician Unavailable RODRIGO BLACKMON Attending Clinician Unavailable Rodrigo Benavidez Attending Clinician Carlos Corbin MD Attending Clinician Dawson Choudhury MD Attending Clinician DAWSON CHOUDHURY Attending Clinician Unavailable DAWSON CHOUDHURY Attending Clinician Unavailable , [facility] Sleep Lab Bed Attending Clinician Unavailable Susan Manjarrez PA-C Attending Clinician SUSAN MANJARREZ Attending Clinician Unavailable DELROY FARAH Attending Clinician Unavailable Delroy Farah MD Attending Clinician [facility] Sleep Lab Attending Clinician Unavailable Erma Morales RN Attending Clinician Unavailable MAGDALENE ROMERO Attending Clinician Unavailable Magdalene Heredia Attending Clinician Omyessyhomi TIN PLATER, Treyemi Attending Clinician CARLOS CORBIN Attending Clinician Unavailable Ladonna Bryant DO Attending Clinician MICHAEL SARGENT Attending Clinician Unavailable Michael Fulton Attending Clinician CLEVE_ Attending Clinician Unavailable BENITO LOPEZ Attending Clinician Unavailable Edgard Leo DO Attending Clinician Kirsten CARTER, Magali Attending Clinician Ted Lion MD Attending Clinician Allen Maravilla MD Attending Clinician Perla CARTER, Georgina Key Attending Clinician [phone] SIENNA POLK Attending Clinician Unavailable LADI RIBERA Attending Clinician Unavailable YASMINE BROOKE Attending Clinician Unavailable MD YASMINE BROOKE Attending Clinician Unavailable Pato Hill MD Attending Clinician Surgery, Tdc General Attending Clinician Unavailable Sofia Malone MD Attending Clinician Surgery, Tdc Vascular Attending Clinician Unavailable Ramana Padron MD Attending Clinician RAMANA SHEA M.D., RAMANA Acevedo M.D. Attending Clinician Unavailable Christy Moya Attending Clinician [id number] Admitting Clinician Unavailable IZABELA PHAM Admitting Clinician Unavailable RAMANA CRUZ Admitting Clinician Unavailable Ramana Cruz MD Admitting Clinician Hilda PEREZ Admitting Clinician Unavailable OLGA ABRAHAM Admitting Clinician Unavailable ALLAN LYNCH Admitting Clinician Unavailable MICHAEL SARGENT Admitting Clinician Unavailable CARLOS CORBIN Admitting Clinician Unavailable CLEVE_ Admitting Clinician Unavailable Kirsten CARTER, Magali Admitting Clinician Perla CARTER, Georgina Key Admitting Clinician [phone] YASMINE BROOKE Admitting Clinician Unavailable MD YASMINE BROOKE Admitting Clinician Unavailable Pato Hill MD Admitting Clinician RAMANA SHEA M.D., RAMANA Acevedo Admitting Clinician Tasha ivey Payers Payer Name Policy Type Policy Number Effective Date Expiration Date Julissa benitez WLCM WLCM [id number] [place] [id number] 2021 CLASSIC NO PREMIUM 00:00:00 O MEDICARE PART A [id number] 2003 00:00:00 [facility] [id number] [facility] 00:00:00 WELLCARE VALUE [id number] 2020 00:00:00 Problems Condition Condition Condition Status Onset Resolution Last Treating Co mments Source Name Details Category Date Date Treatment Clinician Date Cellulitis Cellulitis Disease Active U nivers of right of right 5-29 ity of lower lower 00:00: [place] extremity extremity 00 [facility] Acute Acute Disease Active [facility] metabolic metabolic 5-14 [facility] encephalop encephalop 00:00: Nd dical athy athy 00 Center Toxic Toxic Disease Active [facility] encephalop encephalop 5-14 [facility] athy athy 00:00: Medical 00 Center Hydronephr Hydronephr Disease Active [facility] osis osis 5-09 [facility] 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 4-14 ity of 00:00: [place] [facility] DVT (deep DVT (deep Disease Active Uni vers venous venous 4-14 [place] 00 [facility] Bilateral Bilateral Disease Active Uni vers sciatica sciatica 4-13 ity of 00:00: [place] [facility] Obesity Obesity Disease Active Univers (BMI (BMI 4-13 ity of 30-39.9) 30-39.9) 00:00: [place] [facility] Deep vein Deep vein Disease Active Overview: Univers thrombosis thrombosis 4-13 Formattin ity of (DVT) of (DVT) of 00:00: g of this [place] as proximal proximal 00 note Medica l vein of vein of might be Branch both lower both lower different extremitie extremitie from the s, s, original. unspecifie unspecifie Added d d automatic chronicity chronicity ally from request for surgery [id number] Lipoma of Lipoma of Disease Active Overview: Univers right right 4-12 Formattin ity of lower lower 00:00: g of this [place] extremity extremity 00 note Medi gordon might be Branch different from the original. Added automatic ally from request for surgery [id number] Lipoma of Lipoma of Disease Active Uni vers torso torso 4-06 ity of 00:00: [place] 00 Medical Branch Kamryn Kamryn Disease Active Univers 624 ity of 00:00: [place] [facility] Rhabdomyol Rhabdomyol Disease Active U nivers ysis ysis 08-03 ity of 00:00: [place] 00 Medical Branch Presence Presence Disease Active Metho di of IVC of IVC 10-30 st filter filter 00:00: Hospita 00 l Acute Acute Disease Active Methodi chest pain chest pain 915 st 00:00: Hospita 00 l Behavior Behavior Disease Active Unive rs problem problem 6 ity of 00:00: [place] 00 Medical Branch Cellulitis Cellulitis Disease Active U nivers and and 6 ity of abscess of abscess of [place] foot foot 00 Medical [place] Alteration Alteration Disease Active U nivers consciousn consciousn 6 it y of ess ess 00:00: [place] 00 Medical Branch TESTING TESTING Diagnosis Active 2014-07-28 Memoria FOR DVT FOR DVT 07-22 14:06:00 l Active 00:00: [place] 07/22/2014 00 [facility] 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 2-16 ity of disorder, disorder, [place] chronic chronic 00 Medical condition condition Bran ch with acute with acute exacerbati exacerbati on on Hypertensi Hypertens Problem Active 2014-07-25 Memoria ve raisa 07:19:48 l disorder, disorder, Herm britt systemic systemic arterial arterial (disorder) (disorder) Active Problem 07/25/2014 [facility] History of Past Illness Condition Condition Condition Status Onset Resolution Last Treating Co mments Source Name Details Category Date Date Treatment Clinician Date Discharge Discharge Problem 2014-07-25 2014-07-[facility] Diagnosis: Diagnosis: 07-22 07:19:48 07:19:48 l Chronic Chronic 05:00: [place] back pain back pain 00 07/22/2014 5 [facility] Discharge Discharge Problem 2014-07-25 2014-07-25 Memoria Diagnosis: Diagnosis: 07-22 07:19:48 07:19:48 l Peripheral Peripheral 05:00: [place] edema edema 00 07/22/2014 07/25/2014 [facility] Allergies, Adverse Reactions, Alerts Allergy Allergy Status Severity Reaction(s) Onset Inactive Treating Comm ents Source Name Type Date Date Clinician HEPARIN Allergy Active [facility] ANALOGUE 5-10 [facility] 00:[facility]: Medical 00 Center Heparin Propensi Active Patient [facility] Analogue ty to 5-10 with [facility] adverse 00:00: positive Medical reaction 00 heparin [place] antibody by ISAIAH with OD of 3.000. Confirmat ory testing by serotonin release assay will be sent out. PENICILL Allergy Active Low Rash [facility] IN -09 [facility] 00:[facility]: Medical 00 Center Penicill Propensi Active Rash [address] [facility] in ty to 06-21 [facility] adverse 00:00: Medical reaction 00 [place] HEPARIN DRUG Active Unknown-Cmnt Uni vers INGREDI 4-22 ity of 00:00: [place] 00 Medical Branch Heparin Propensi Active Unknown - HIT-Ab Univ ers ty to See comments 4-22 ity of adverse 00:00: [place] reaction 00 Medical Branch GABAPENT DRUG Active Other-Cmnt 0 Univ ers IN INGREDI 4-21 ity of 00:00: [place] 00 Medical Branch Gabapent Propensi Active Other - See 0 Hot U nivers in ty to comments 4-21 flashes ity of adverse 00:00: and upset [place] reaction 00 stomach Medical s Branch Penicill DA Active U Rash 2019-02 [facility] ins 2 00:00: 00 No Known DA Active U 2019-02 [facility] Drug 2-20 Allergie 00:00: s 00 Penicill Propensi Active Rash Univer s ins ty to -06 ity of adverse 00:00: [place] reaction 00 Medical s to Branch drug PENICILL Drug Active Rash 2016-0 Univers INS Class 1-06 ity of 00:00: [place] 00 Medical Branch Penicill Penicill Active Sophie freitas in in [place] Family History Family Member Diagnosis Comments Start Date Stop Date Source Natural father [facility] Natural mother Diabetes [facility] Social History Social Habit Start Date Stop Date Quantity Comments Source Gender [facility] Sexual [facility] History SDOH University o f Alcohol Std Drinks [place] [facility] History SDOH University o f Alcohol Binge [place] [facility] al Branch History SDOH Social Unive rsity of Connections Get [place] Med ical Together Branch History SDOH Social Unive rsity of Connections [facility] [place] [facility] History SDOH Social Unive rsity of Connections [place] Medical Membership Branch History SDOH Social Unive rsity of Connections [place] Medical Meetings Branch Exposure to 2022-07-01 2022-07-11 Not sure University of SARS-CoV-2 (event) 00:00:00 10:10:00 [place] [facility] History SDOH 2022-05-27 2022-05-27 [...] University o f Housing Places 00:00:00 00:00:00 [place] Medi gordon Lived Branch History SDWA 2022-05-27 2022-05-27 2 University o f Housing Homeless 00:00:00 00:00:00 [place] dicletty Last Year Branch Education 2022-05-26 2022-05-26 21 University of 00:00:00 00:00:00 [facility] Tobacco use and 2022-05-03 2022-05-03 User of Universit y of exposure 00:00:00 00:00:00 smokeless [facility] tobacco [facility] Tobacco Comment 2021-09-22 2021-09-22 dipper Universit y of 00:00:00 00:00:00 [facility] History of Social 2019-10-31 2019-10-[address] function 00:00:00 00:00:00 Hospital Alcohol intake 2019-10-29 2019-10-29 Lifetime [facility] 00:00:00 00:00:00 [facility]-drinker [facility] (finding) History of tobacco 2014-08-25 Snuff User Univer sity of use 00:00:00 [facility] Sex Assigned At [address] [address] [facility] kes 00:00:00 00:00:00 [facility] Center Smoking Status Start Date Stop Date Source Social History [facility] Medications Ordered Filled Start Stop Current Ordering Indication Dosage Frequency Signature Comments Components Source Medication Medication Date Date Medication? Clinician (SIG) Name Name clindamycin 2022- No 900mg 900 mg, IV Univers in 5 % 07-11 05-29 Piggyback, ity of dextrose 10:45: 11:47 ONCE, 1 [place] (CLEOCIN) 00 :00 dose, On Medica l 900 mg/50 Mon Branch mL IV 07/11/22 at piggyback 0545, RTU 900 mg Administer over 30 Minutes, 50 mL
R chelsea for Anti-Infec tive: Empiric Therapy for Suspected Infection< br>Empiric Therapy Site: Skin / Soft tissue
Duration of therapy: 5 days
Re stricted use approved by: ED PROVIDER cefTRIAXone 2022- No 1000mg 1,000 mg, Univers (ROCEPHIN) 07-05 IV ity of 1,000 mg in 14:15: 14:53 [place], [place] NaCl 0.9% 00 :00 ONCE, 1 Medical (NS) 100 mL dose, On Bran ch MINI-BAG Mon07/05/22 at 0915, Administer over 30 Minutes, 100 mL
Reas on for Anti-Infec tive: Empiric Therapy for Suspected Infection< br>Empiric Therapy Site: Skin / Soft tissue
Duration of therapy: 72 hours FENTanyl PF 2022-2022- No 50ug 50 mcg, Un mary (SUBLIMAZE 07-05 Slow IV ity o f (PF)) 12:15: 11:46 [place], [place] injection 00 :00 ONCE, 1 Medical 50 mcg dose, On Branch Mon07/05/22 at 0715, Routine OLANZapine 2022-0 Yes [id number] 5mg Take 1 Univers 5 mg tablet 5-23 tablet by ity of 00:00: mouth in [place] 00 the Medical morning. Branch OLANZapine 2022-0 Yes [id number] 5mg Take 1 Univers 5 mg tablet 5-23 tablet by ity of 00:00: mouth in [place] 00 the Medical morning. Branch OLANZapine 2022-0 Yes [id number] 5mg Take 1 Univers 5 mg tablet 5-23 tablet by ity of 00:00: mouth in [place] the Medical morning. Branch OLANZapine 2022-0 Yes [id number] 5mg Take 1 Univers 5 mg tablet 5-23 tablet by ity of 00:00: mouth in [place] the Medical morning. Branch OLANZapine 2022-0 Yes [id number] 5mg Take 1 Univers 5 mg tablet 5-23 tablet by ity of 00:00: mouth in [place] the Medical morning. Branch furosemide 2022022- Yes [id number] 40mg Take 1 Univers 40 mg 5-23 06-07 tablet by ity of tablet 00:00: 04:59 mouth [place] 00 :00 every Medical morning Branch and evening for 14 days. furosemide 2022- Yes [id number] 40mg Take 1 Univers 40 mg 5-23 06-07 tablet by ity of tablet 00:00: 04:59 mouth [place] 00 :00 every Medical morning Branch and evening for 14 days. furosemide 2022- Yes [id number] 40mg Take 1 Univers 40 mg 5-23 06-07 tablet by ity of tablet 00:00: 04:59 mouth [place] 00 :00 every Medical morning Branch and evening for 14 days. furosemide 2022- Yes [id number] 40mg Take 1 Univers 40 mg 5-23 06-07 tablet by ity of tablet 00:00: 04:59 mouth [place] 00 :00 every Medical morning Branch and evening for 14 days. furosemide 2022- Yes [id number] 40mg Take 1 Univers 40 mg 5-23 06-07 tablet by ity of tablet 00:00: 04:59 mouth [place] 00 :00 every Medical morning Branch and evening for 14 days. cephALEXin 2022- Yes [id number] 1000mg Take 2 Univers 500 mg 5-07-13 [id number] capsules ity of capsule 00:00: 04:59 by mouth [place] 00 :00 in the Medical morning Branch and 2 capsules in the evening. Do all this for 7 days. cephALEXin 2022- Yes [id number] 1000mg Take 2 Univers 500 mg 5-07-13 [id number] capsules ity of capsule 00:00: 04:59 by mouth [place] 00 :00 in the Medical morning Branch and 2 capsules in the evening. Do all this for 7 days. cephALEXin 2022- Yes [id number] 1000mg Take 2 Univers 500 mg 5-23 - [id number] capsules ity of capsule 00:00: 04:59 by mouth [place] 00 :00 in the Medical morning Branch and 2 capsules in the evening. Do all this for 7 days. cephALEXin 2022- Yes [id number] 1000mg Take 2 Univers 500 mg 5-05 07- [id number] capsules ity of capsule 00:00: 04:59 by mouth [place] 00 :00 in the Medical morning Branch and 2 capsules in the evening. Do all this for 7 days. cephALEXin 2022-0 2022- Yes [id number] 1000mg Take 2 Univers 500 mg 07-05 [id number] capsules ity of capsule 00:00: 04:59 by mouth [place] 00 :00 in the Medical morning Branch and 2 capsules in the evening. Do all this for 7 days. apixaban 5 2022-0 Yes [id number] 5mg Take 1 Unive rs mg tablet 5-22 tablet by ity o f 00:00: mouth in [place] 00 the Medical morning Branch and 1 tablet in the evening. Indication s: history of deep vein thrombosis apixaban 5 2022-0 Yes [id number] 5mg Take 1 Unive rs mg tablet 5-22 tablet by ity o f 00:00: mouth in [place] 00 the Medical morning Branch and 1 tablet in the evening. Indication s: history of deep vein thrombosis apixaban 5 2022-0 Yes 5523 5mg Take 1 Unive rs mg tablet 5-22 tablet by ity o f 00:00: mouth in [place] 00 the [facility] morning Branch and 1 tablet in the evening. Indication s: history of deep vein thrombosis apixaban 2022-0 Yes 5523 5mg Take 1 Unive rs mg tablet 5-22 tablet by ity o f 00:00: mouth in [place] 00 the Medical morning Branch and 1 tablet in the evening. Indication s: history of deep vein thrombosis apixaban 5 2022-0 Yes 5523 5mg Take 1 Unive rs mg tablet 5-22 tablet by ity o f 00:00: mouth in [place] 00 the Medical morning Branch and 1 tablet in the evening. Indication s: history of deep vein thrombosis apixaban 5 2022-0 Yes 5523 5mg Take 1 Unive rs mg tablet 5-22 tablet by ity o f 00:00: mouth in [place] 00 the Medical morning Branch and 1 tablet in the evening. Indication s: history of deep vein thrombosis apixaban 5 2022-0 Yes 5523 5mg Take 1 Unive rs mg tablet 5-22 tablet by ity o f 00:00: mouth in [place] 00 the [facility] morning Branch and 1 tablet in the evening. Indication s: history of deep vein thrombosis apixaban 5 2022-0 Yes 5523 5mg Take 1 Unive rs mg tablet 5-22 tablet by ity o f 00:00: mouth in [place] [address] the [facility] Branch and 1 tablet in the evening. Indication s: history of deep vein thrombosis tamsulosin 2023-0 Yes .4mg QD Take 1 [facility] (FLOMAX) 5-12 capsule [facility] 0.4 mg Cap 00:00: (0.4 mg Medi gordon 24 hr 00 total) by Center capsule mouth in the morning. tamsulosin 2023-0 Yes .4mg QD Take 1 [facility] (FLOMAX) 5-12 capsule [facility] 0.4 mg Cap 00:00: (0.4 mg Medi gordon 24 hr 00 total) by Center capsule mouth in the morning. traMADoL 2023-0 Yes 50mg Take [address] [facility] [address] (ULTRAM) 50 5-11 tablet (50 Alison kes mg tablet 18:24: mg total) Med ical 33 by mouth Center every 6 (six) hours as needed for Pain. Max Daily Amount: 200 mg mirtazapine 2023-0 Yes 45mg QD Take [address] [facility] (REMERON) 5-11 tablet (45 Luke s 45 MG 18:24: mg total) Medical tablet 33 by mouth Center nightly. gabapentin 2023-0 Yes 300mg Q.[id number] Take [address] [facility] (NEURONTIN) 5-11 [id number] capsule [facility] 300 MG 18:24: 3D (300 mg Medical capsule 33 total) by Center mouth in the morning and 1 capsule (300 mg total) at noon and 1 capsule (300 mg total) in the evening. risperiDONE 2023-0 Yes 1mg QD Take [address] [facility] (RisperDAL) 5-11 tablet (1 Yaneth es 1 MG tablet 18:24: mg total) M edical 33 by mouth Center nightly. escitalopra 2023-0 Yes 10mg QD Take [address] [facility] m oxalate 5-11 tablet (10 Luke s (LEXAPRO) 18:24: mg total) Med ical 10 MG 33 by mouth Center tablet in the morning. apixaban 2023-0 Yes 5mg Q.5D Take [address] [address] (Eliquis) 5 5-11 tablet (5 [place] es mg Tab 18:24: mg total) Medica l tablet 33 by mouth Center in the morning and 1 tablet (5 mg total) before bedtime. traMADoL 2022-0 Yes 50mg Take [address] [facility] [facility] (ULTRAM) 50 5-11 tablet (50 Alison kes mg tablet 18:24: mg total) Med ical 33 by mouth Center every 6 (six) hours as needed for Pain. Max Daily Amount: 200 mg mirtazapine 2022-0 Yes 45mg QD Take [address] (REMERON) 5-11 tablet (45 Luke s 45 MG 18:24: mg total) Medical tablet 33 by mouth Center nightly. gabapentin 3-0 Yes 300mg Q.[id number] Take [address] (NEURONTIN) 5-11 [id number] capsule [facility] 300 MG 18:24: 3D (300 [...] s mg tablet 06-13 ity of 00:00: [place] [facility] traMADoL 50 2022-0 Yes Univer s mg tablet 06-13 ity of 00:: [place] [facility] traMADoL 50 2022-0 Yes Univer s mg tablet 06-13 ity of 00:: [place] [facility] traMADoL 50 2022-0 Yes Univer s mg tablet 06-13 ity of 00:00: [place] [facility] traMADoL 50 2022-0 Yes Univer s mg tablet 06-13 ity of 00:00: [place] [facility] traMADoL 50 2022-0 Yes Univer s mg tablet 06-13 ity of 00:00: [place] 00 Medical Branch traMADoL 50 2022-0 Yes Univer s mg tablet 06-13 ity of 00:00: Medical Branch traMADoL 50 2022-0 Yes Univer s mg tablet 06-13 ity of 00:00: [place] 00 Medical Branch traMADoL 50 2022-0 Yes Univer s mg tablet 06-13 ity of 00:00: [place] [facility] traMADoL 50 2022-0 Yes Univer s mg tablet 06-13 ity of 00:00: [place] [facility] traMADoL 50 2022-0 Yes Univer s mg tablet 06-13 ity of 00:00: [place] [facility] traMADoL 50 2022-0 Yes Univer s mg tablet 06-13 ity of 00:00: [place] [facility] traMADoL 50 2022-0 Yes Univer s mg tablet 06-13 ity of 00:00: [place] [facility] traMADoL 50 2022-0 Yes Univer s mg tablet 06-13 ity of 00:00: [place] [facility] traMADoL 50 2022-0 Yes Univer s mg tablet 06-13 ity of 00:00: [place] 00 Medical Branch tc 2022-0 2022- No [id number] 25mCi 25 Univer s 99m-medrona 06-07 millicurie i ty of te 13:50: 13:50 , [place] (DRAXIMAGE 00 :00 Intravenou Med ical MDP-25) s, ONCE, 1 Branch injection dose, [facility] at 0900, Routine apixaban 2022- Yes [id number] 5mg Take 1 Univ ers mg tablet 06-07 tablet by ity of 00:00: 04:59 mouth in [place] 00 :00 the Medical morning Branch and 1 tablet in the evening. Do all this for 30 days. Indication s: history of deep vein thrombosis apixaban 2022- Yes 5523 5mg Take 1 Univ ers mg tablet 06-07 tablet by ity of 00:00: 04:59 mouth in [place] 00 :00 the Medical morning Branch and 1 tablet in the evening. Do all this for 30 days. Indication s: history of deep vein thrombosis apixaban 2022- Yes 5523 5mg Take 1 Univ [...] deep vein thrombosis apixaban 5 2022-0 2022- No 5523 5mg Take 1 Univ ers mg tablet 4-25 05-22 tablet by ity of 00:00: 00:00 mouth in [place] 00 :00 the Medical morning Branch and 1 tablet in the evening. Do all this for 30 days. Indication s: history of deep vein thrombosis apixaban 5 2022-0 2022- No 5523 5mg Take 1 Univ ers mg tablet 4-25 05-22 tablet by ity of 00:00: 00:00 mouth in [place] 00 :00 the Medical morning Branch and 1 tablet in the evening. Do all this for 30 days. Indication s: history of deep vein thrombosis acetaminoph 2022-2022- Yes [id number] 500mg Take 1 Univers en 500 mg 4-25 05-06 tablet by ity of tablet 00:00: 04:59 mouth [place] 00 :00 every 6 Medical (six) Branch hours as needed for Pain for up to 10 days. acetaminoph 2022- Yes [id number] 500mg Take 1 Univers en 500 mg 4-25 05-06 tablet by ity of tablet 00:00: 04:59 mouth [place] 00 :00 every 6 Medical (six) Branch hours as needed for Pain for up to 10 days. acetaminoph 2022- Yes [id number] 500mg Take 1 Univers en 500 mg 4-25 05-06 tablet by ity of tablet 00:00: 04:59 mouth [place] 00 :00 every 6 Medical (six) Branch hours as needed for Pain for up to 10 days. acetaminoph 2022- Yes [id number] 500mg Take 1 Univers en 500 mg 4-25 05-06 tablet by ity of tablet 00:00: 04:59 mouth [place] 00 :00 every 6 Medical (six) Branch hours as needed for Pain for up to 10 days. acetaminoph 2022- Yes [id number] 500mg Take 1 Univers en 500 mg 4-25 05-06 tablet by ity of tablet 00:00: 04:59 mouth [place] 00 :00 every 6 Medical (six) Branch hours as needed for Pain for up to 10 days. acetaminoph 2022- Yes [id number] 500mg Take 1 Univers en 500 mg 4-25 05-06 tablet by ity of tablet 00:00: 04:59 mouth [place] 00 :00 every 6 Medical (six) Branch hours as needed for Pain for up to 10 days. acetaminoph 2022- Yes [id number] 500mg Take 1 Univers en 500 mg 4-25 05-06 tablet by ity of tablet 00:00: 04:59 mouth [place] 00 :00 every 6 Medical (six) Branch hours as needed for Pain for up to 10 days. docusate 2022- Yes [id number] 100mg Take 1 Univers 100 mg 4-25 [...] Indication s: acute pain polyethylen 2022- Yes [id number] 17g Take 1 Univers e glycol 4-25 05-03 Packet by ity o f 3350 17 00:00: 04:59 mouth [place] gram powder 00 :00 every 24 [facility]ordon [facility]) hours as needed for Constipati on for up to 7 days. docusate 2022- Yes [id number] 100mg Take 1 Univers 100 mg 4-25 05-03 capsule by ity of capsule 00:00: 04:59 mouth in [place] 00 :00 the Medical morning Branch for [...] Indication s: acute pain polyethylen 2022- Yes [id number] 17g Take 1 Univers e glycol 4-25 05-03 Packet by ity o f 3350 17 00:00: 04:59 mouth [place] gram powder 00 :00 every 24 Medi gordon ([facility] [facility] hours as needed for Constipati on for up to 7 days. docusate 2022- Yes [id number] 100mg Take 1 Univers 100 mg 4-25 05-03 capsule by ity of capsule 00:00: 04:59 mouth in [place] 00 :00 the Medical morning Branch for [...] Indication s: acute pain polyethylen 2022- Yes [id number] 17g Take 1 Univers e glycol 4-25 05-03 Packet by ity o f 3350 17 00:00: 04:59 mouth [place] gram powder 00 :00 every 24 Medi gordon (twenty-fo Branch ur) hours as needed for Constipati on for up to 7 days. docusate 2022- Yes [id number] 100mg Take 1 Univers 100 mg -07 07- capsule by ity of capsule 00:00: 04:59 mouth in [place] 00 :00 the Medical morning Branch for 7 days. HYDROcodone 2022- Yes [id number] 1{tbl} Take 1 U nivers -acetaminop 06-07- tablet by it y of hen 10-325 00:00: 04:59 mouth [place] mg tablet 00 :00 every 6 Medical (six) Branch hours as needed for Pain (scale 7-10) or Pain (scale 4-6) for up to 7 days. Indication s: acute pain polyethylen 2022- Yes [id number] 17g Take 1 Univers e glycol -07 07- Packet by ity o f 3350 17 00:00: 04:59 mouth [place] gram powder 00 :00 every 24 Medi gordon (twenty-fo Branch ur) hours as needed for Constipati on for up to 7 days. benzocaine- Yes 1{lozen 1 Lozenge, Univers menthoL 4-23 ge} Oral, ity of (CEPACOL 05:03: Q4HPRN, [place] SORE THROAT 14 Starting Medi gordon (CLAUDIA-MEN)) on [facility] lozenge 1 06/05/22 at Lozenge 0003, Until Discontinu ed, Routine, Sore throat benzocaine- 0 Yes 1{lozen 1 Lozenge, Univers menthoL 4-23 ge} Oral, ity of (CEPACOL 05:03: Q4HPRN, [place] SORE THROAT 14 Starting Medi gordon (CLAUDIA-MEN)) on [facility] lozenge 1 06/05/22 at Lozenge 0003, Until Discontinu ed, Routine, Sore throat iopamidol 2022- No [id number] 80mL 80 mL, Univers (ISOVUE 06-05-23 Intravenou ity o f 370-500 mL) 01:36: 01:20 s, ONCE, 1 [place] injection 00 :00 dose, On Medica l 80 mL [facility] 06/04/22 at 2045, Routine apixaban 2022-2022- Yes 10mg [Order 1 Univ ers (ELIQUIS) 06-05 Start] ity of tablet 10 01:00: 00:59 Name: [place] mg 00 :00 apixaban Medical (ELIQUIS) Branch tablet 10 mg Signed Summary: 10 mg, Oral, BID, 14 doses, First dose on [facility] 06/04/22 at 1999, Last dose on [facility] 06/11/22 at 0800, Routine
Indicatio ns: DVT/PE [Order 1 End] [Order 2 Start] Name: apixaban (ELIQUIS) tablet 5 mg Signed Summary: 5 mg, Oral, BID, First dose on [facility] 06/11/22 at 1999, Until Discontinu ed, Routine
Indicatio ns: DVT/PE [Order 2 End] apixaban 2022-2022- Yes 10mg [Order 1 Univ ers (ELIQUIS) 06-05 Start] ity of tablet 10 01:00: 00:59 Name: [place] mg 00 :00 apixaban Medical (ELIQUIS) Branch tablet 10 mg Signed Summary: 10 mg, Oral, BID, 14 doses, First dose on [facility] 06/04/22 at 1999, Last dose on [facility] 06/11/22 at 0800, Routine
Indicatio ns: DVT/PE [Order 1 End] [Order 2 Start] Name: apixaban (ELIQUIS) tablet 5 mg Signed Summary: 5 mg, Oral, BID, First dose on [facility] 06/11/22 at 1999, Until Discontinu ed, Routine
Indicatio ns: DVT/PE [Order 2 End] bisacodyL Yes 10mg 10 mg, Univer s (DULCOLAX) 4-22 Rectal, ity of suppository 15:25: QDAILYPRNCarina 10 mg 51 Starting Medical on [facility] Branch 06/04/22 at 1025, Until Discontinu ed, Routine, Constipati on bisacodyL Yes 10mg 10 mg, Univer s (DULCOLAX) 4-22 Rectal, ity of suppository 15:25: QDAILYPRN, [place] 10 mg 51 Starting Medical on Sat Branch 06/04/22 at 1025, Until Discontinu ed, Routine, Constipati on argatroban 2022-0 2023- No .15ug/k 0.15-2 U nivers 50 mg [...] platelet count and call physician< br> omeprazole 3-0 Yes 20mg 20 mg, Unive rs (PRILOSEC) [...] 1000 mL for 00 :55 06/03/22 at Nd dical vascular 0925, Branch Intra-op heparin 2022-0 202- No 0U/h 0-3,050 Univer s 25,000 06-02-22 Units/hr ity of Units/250 15:22: 07:25 (0-30.5 [...] INITIAL INFUSION RATE.&nbsp ; _ &nb sp;[facility], AND [facility] ONLY &nbs p; - aPTT [...] Oral, ity of OIL EXTRA 14:00: DAILY, [place] HEAVY) oral 00 First dose Me dical liquid 30 on [place] Branch mL 06/02/22 at 0900, Until Discontinu ed, Routine mineral oil Yes 30mL 30 mL, Univ ers (MINERAL 4-20 Oral, ity of OIL EXTRA 14:00: DAILY, [place] HEAVY) oral 00 First dose Me dical liquid 30 on [place] Branch mL 06/02/22 at 0900, Until Discontinu ed, Routine apixaban 2022- Yes 10mg [Order 1 Univ ers (ELIQUIS) 05-31 Start] ity of tablet 10 15:30: 12:59 Name: [place] mg 00 :00 apixaban Medical (ELIQUIS) [facility] tablet 10 mg Signed Summary: 10 mg, [...] Yes 100mg 100 mg, Unive rs (COLACE) 05-31 Oral, ity of capsule 100 14:00: DAILY, [place] mg 00 First dose Medical on [facility] 05/31/22 at 0900, Until Discontinu ed, Routine docusate 0 Yes 100mg 100 mg, Unive rs (COLACE) 05-31 Oral, ity of capsule 100 14:00: DAILY, [place] mg 00 First dose Medical on [facility] 05/31/22 at 0900, Until Discontinu ed, Routine docusate 0 Yes 100mg 100 mg, Unive rs (COLACE) 05-31 Oral, ity of capsule 100 14:00: DAILY, [place] mg 00 First dose Medical on [facility] 05/31/22 at 0900, Until Discontinu ed, Routine docusate 0 Yes 100mg 100 mg, Unive rs (COLACE) 05-31 Oral, ity of capsule 100 14:00: DAILY, [place] mg 00 First dose Medical on [facility] 05/31/22 at 0900, Until Discontinu ed, Routine heparin 2022- No 0U/h 0-3,050 Univer s 25,000 05-31-18 Units/hr ity of Units/250 05:09: 15:17 (0-30.5 [...] INITIAL INFUSION RATE.&nbsp ; _ &nb sp;FOR [facility], AND [facility] ONLY &nbs p; - aPTT < 35: [...] of ) injection 02:47: on Mon05/30/22 at [facility] 2147, Branch Until Discontinu ed, Routine, Intra-op iopamidol 2022-0 Yes PRN, Univers (ISOVUE-300 4-18 Starting ity of ) injection 02:47: on Mon05/30/22 at [facility] 2147, Branch Until Discontinu ed, Routine, Intra-op iopamidol 2022-0 Yes PRN, Univers (ISOVUE-300 4-18 Starting ity of ) injection 02:47: on [place] 05[place]30[place]22 at [facility] 2147, Branch Until Discontinu ed, Routine, Intra-op heparin 2023-0 Yes PRN, Univers 10,000 4-18 Starting ity of units in NS 01:26: on Mon [place] 1000 mL for 05/30/22 at N[facility] dical vascular 2025, Branch Intra-op heparin 3-0 Yes 300U/h 300 Univers 25,000 4-17 Units/hr ity of Units/250 16:40: (3 mL/hr), [place] mL 36 IV Medical (Premixed Infusion, Branc h Bag) in D5W TITRATE, Parameters in Admin. Instr., Starting on Mon05/30/22 at 1140
30 0 Units/hr. Non titratable
heparin 2023-0 2023- No 300U/h 300 Univers 25,000 4-17 04-18 Units/hr ity of Units/250 16:40: 05:10 (3 mL/hr), [place] mL 36 :21 IV Medical (Premixed Infusion, Branc h Bag) in D5W TITRATE, Parameters in Admin. Instr., Starting on Mon05/30/22 at 1140
30 0 Units/hr. Non titratable
heparin 3-0 Yes 300U/h 300 Univers 25,000 4-17 Units/hr ity of Units/250 14:24: (3 mL/hr), [place] mL in D5W 12 IV Medical infusion Infusion, Branch (CNR) TITRATE, Parameters in Admin. Instr., Starting on Mon05/30/22 at 0924
30 0 Units/hr. Non titratable
heparin 2023-0 2023- No 300U/h 300 Univers 25,000 4-17 [...] all infusion sites combined.< br> alteplase 2022-0 Yes .5mg/h 0.5 mg/hr U [...] 2023- No .5mg/h 0.5 mg/hr Univers (CATHFLO 05-30-18 (12.5 ity of ACTIVASE) 14:00: 05:10 mL/hr), [...] 2023- No .5mg/h 0.5 mg/hr Univers (CATHFLO 05-30-18 (12.5 ity of ACTIVASE) 14:00: 05:10 mL/hr), IV [place] 20 mg in 00 :21 Infusion, Medica l NaCl 0.9% CONTINUOUS Bran ch (NS) 500 mL , Starting infusion on Mon05/30/22 at 0900
In fuse Via: infusion catheter. Location: Right lower extremity sheath. Total infusion max dose is 4 mg/hr from all infusion sites combined.< br> KCL 2022- No 20meq 20 mEq, Univers (KLOR-CON 05-30 Oral, ity of M20) tablet 11:15: 11:12 ONCE, 1 [place] 20 mEq 00 :00 dose, On Medical [facility] 05/30/22 at 0615, Routine heparin 2022- No 0U/h 0-3,050 Univer s 25,000 05-30 Units/hr ity of Units/250 06:04: 14:01 (0-30.5 [place] mL 50 :49 mL/hr), IV Medical (Premixed Infusion, Branc h Bag) in TITRATE, 0.45 % NS Parameters in Admin. Instr., Starting on Mon05/30/22 at 0104
In itiate dosing:&nb sp; & [...] INITIAL INFUSION RATE.&nbsp ; _ &nb sp;[facility] &nbs p; [...] mg 53 Q4HPRN, Medical Starting Branch on [place] 05/29/22 at 2231, Until Discontinu ed, Routine, SBP > 160 and HR > 70 labetaloL 2023-0 Yes 10mg 10 mg, Univer s (NORMODYNE) 4-17 Slow IV ity o f injection 03:31: Push, [place] 10 mg 53 Q4HPRN, Medical Starting Branch on [place] 05/29/22 at 2231, Until Discontinu ed, Routine, SBP > 160 and HR > 70 labetaloL 3-0 Yes 10mg 10 mg, Univer s (NORMODYNE) 4-17 Slow IV ity o f injection 03:31: Push, [place] 10 mg 53 Q4HPRN, Medical Starting Branch on [place] 05/29/22 at 2231, Until Discontinu ed, Routine, SBP > 160 and HR > 70 traMADoL 3-0 Yes 50mg 50 mg, Univers (ULTRAM) 4-17 Oral, Q6H, ity o f tablet 50 01:45: First dose [place] [facility] Branch 2044, Until Discontinu ed, Routine traMADoL 3-0 Yes 50mg 50 mg, Univers (ULTRAM) 4-17 Oral, Q6H, ity o f tablet 50 01:45: First dose [place] mg 00 on [facility] 05[facility]22 at Branch 2044, Until Discontinu ed, Routine traMADoL 3-0 Yes 50mg 50 mg, Univers (ULTRAM) 4-17 Oral, Q6H, ity o f tablet 50 01:45: First dose [place] mg 00 on [facility] 05/[facility]/22 at Branch 2044, Until Discontinu ed, Routine traMADoL 3-0 Yes 50mg 50 mg, Univers (ULTRAM) 4-17 Oral, Q6H, ity o f tablet 50 01:45: First dose [place] mg 00 on [facility] 05[facility]/22 at Branch 2044, Until Discontinu ed, [...] Pain (scale 7-10), Pain (scale 4-6) heparin 2022-0 2022- No 300U/h 300 Univers 25,000 05-29 04-17 Units/hr ity of Units/250 17:45: 06:05 (3 mL/hr), [place] mL 01 :58 IV Medical (Premixed Infusion, Branc h Bag) in TITRATE, 0.45 % NS Parameters in Admin. Instr., Starting on 05/29/22 at 1245
30 0 units non titratable
acetaminoph 0 Yes 500mg 500 mg, Un mary en -16 Oral, Q6H, ity of (TYLENOL) 17:15: First [...] at 1215, Until Discontinu ed, Routine HYDROcodone 2022- No 1{tbl} 1 tablet, Univers -acetaminop 05-29-17 Oral, ity of hen (NORCO 17:03: 01:38 Q6HPRN, [place] 5) 5-325 mg 06 :07 Starting Medi gordon tablet 1 on [place] Branch tablet 05/29/22 at 1203, Until 05/29/22 at 2038, Routine, Pain (scale 4-6), Pain (scale 7-10) heparin 2022-0 2023- No 300U/h 300 Univers 25,000 05-29 04-17 Units/hr ity of Units/250 15:46: 14:20 (3 mL/hr), [place] mL 48 :43 IV Medical (Premixed Infusion, Branc h Bag) in TITRATE, 0.45 % NS Parameters in Admin. Instr., Starting on 05/29/22 at 1046
30 0 units/hr, non-titrat able
iodixanoL Yes PRN, Univers (VISIPAQUE 05-29 Starting ity o f 270-150 mL) 13:50: [place] 00 05/29/22 at [facility] 08, Branch Until Discontinu ed, Routine, Intra-op iodixanoL 2023-0 Yes PRN, Univers (VISIPAQUE 4-16 Starting ity o f 270-150 mL) 13:50: [place] injection 05/29/22 at [place] [address], Branch Until Discontinu ed, Routine, Intra-op iodixanoL 2023-0 Yes PRN, Univers (VISIPAQUE 4-16 Starting ity o f 270-150 mL) 13:50: on [place] injection 05/29/22 at [place] [address], Branch Until Discontinu ed, Routine, Intra-op iodixanoL 3-0 Yes PRN, Univers (VISIPAQUE 4-16 Starting ity o f 270-150 mL) 13:50: on [place] injection 05/29/22 at [place] [address], Branch Until Discontinu ed, Routine, Intra-op lidocaine 2022-0 Yes PRN, Univers 1% (PF) 4-16 Starting ity of (XYLOCAINE) 13:00: [place] injection 05/29/22 at [place] [address], Branch Until Discontinu ed, Routine, Intra-op lidocaine 2022-0 Yes PRN, Univers 1% (PF) 4-16 Starting ity of (XYLOCAINE) 13:00: on Sun [place] injection 05/29/22 at [place] [address], Branch Until Discontinu ed, Routine, Intra-op lidocaine 3-0 Yes PRN, Univers 1% (PF) 4-16 Starting ity of (XYLOCAINE) 13:00: [place] 05/29/22 at [facility] 08, Branch Until Discontinu ed, Routine, Intra-op lidocaine 3-0 Yes PRN, Univers 1% (PF) 4-16 Starting ity of (XYLOCAINE) 13:00: on [place] injection 05/29/22 at [place] [address], Branch Until Discontinu ed, Routine, Intra-op alteplase 3-0 2023- No 1mg/h 1 mg/hr Uni vers [...] 2022- No 0U/h 0-2,750 Univer s 25,000 - 04-16 Units/hr ity of Units/250 16:23: 15:43 (0-27.5 [...] Rang e, Dosing and Testing: &nbs p;FOR [facility], AND [facility] ONLY &nbs p; - aPTT < [...] RATE.
heparin Yes 3000U FOR Univers (1,000 4-15 REBOLUSING ity of unit/mL, 10 16:23: , Starting [place] mL vial) 36 on [facility] for 05/28/22 at Branch Rebolusing 1123, Until Discontinu ed, Routine
Dosing based on aPPT testing parameters (refer to continuous heparin drip order).
sulfur 2022- No [id number] 5mL 5 mL, Univ ers hexafluorid -14 04-14 Intravenou i ty of e microsphr 18:30: 18:30 s, ONCE, 1 [place] (LUMASON) 00 :00 dose, On Medica l injection 5 Mon [facility] mL 05/27/22 at 1330, Routine
physics faculty member approving Restricted medication : HAROON MOYER enoxaparin 2022-0 2022- No 1mg/kg 90 mg Uni vers (LOVENOX) -27 05-15 (rounded ity o f injection 14:07: 16:25 [place] 86.5 [place] 90 mg 50 :10 mg = 1 Medical mg/kg Branch ?86.5 kg), [facility], Q12H, First dose on Mon05/27/22 at 2000, Until Discontinu ed, Routine polyethylen 2022-0 Yes 17g 17 g, Unive rs e glycol 4-14 Oral, ity of 3350 powder 14:00: DAILY, [place] 17 g 00 First dose Medical on Mon [facility] 05/27/22 at 0900, Until Discontinu ed, Routine polyethylen 3-0 Yes 17g 17 g, Unive rs e glycol 4-14 Oral, ity of 3350 powder 14:00: DAILY, [place] 17 g 00 First dose Medical on Mon [facility] 05/27/22 at 0900, Until Discontinu ed, Routine polyethylen 2022-0 Yes 17g 17 g, Unive rs e glycol 4-14 Oral, ity of 3350 powder 14:00: DAILY, [place] 17 g 00 First dose Medical on Mon [facility] 05/27/22 at 0900, Until Discontinu ed, Routine polyethylen 3-0 Yes 17g 17 g, Unive rs e glycol 4-14 Oral, ity of 3350 powder 14:00: DAILY, [place] 17 g 00 First dose Medical on Mon [facility] 05/27/22 at 0900, Until Discontinu ed, Routine methocarbam 3-0 Yes 500mg 500 mg, Un mary oL [...] Yes 300mg 300 mg, Uni vers (NEURONTIN) -14 Oral, TID, it y of capsule 300 13:00: First dose [place] mg 00 on [facility] 05/27/22 at Branch 0800, Until Discontinu ed, Routine methocarbam 2023-0 Yes 500mg 500 mg, Un mary oL 4-14 Oral, QID, ity of (ROBAXIN) 13:00: First dose [place] tablet 500 00 on Fri Medical 05/27/22 at Branch 0800, Until Discontinu ed, Routine methocarbam 2023-0 Yes 500mg 500 mg, Un mary oL 4-14 Oral, QID, ity of (ROBAXIN) 13:00: First dose [place] tablet 500 00 on Fri Medical mg 05/27/22 at Branch 0800, Until Discontinu ed, Routine gabapentin 3-0 2023- No 300mg 300 mg, Un mary (NEURONTIN) 05-27 Oral, TID, i ty of capsule 300 13:00: 04:23 First dose [place] mg 00 :21 on [facility] 05/27/22 at Branch 0800, Until Discontinu ed, Routine iopamidol 2022-0 2022- No [id number] 100mL 100 mL, Univers (ISOVUE 05-27 [id number] Intravenou ity of 370-500 mL) 12:15: 12:15 s, ONCE, 1 [place] injection 00 :00 dose, On Medica l 100 mL [facility] 05/27/22 at 0715, Routine ALPRAZolam 2022-0 2022- No .5mg 0.5 mg, Uni vers (XANAX) 05-27 Oral, ity of tablet 0.5 05:45: 05:15 ONCE, 1 [place] mg 00 :00 dose, On Medical Fri [facility] 05/27/22 at 0045, Routine cyclobenzap 2023-0 202- No 10mg 10 mg, Uni vers rine 05-27 Oral, ity of (FLEXERIL) 04:47: 17:03 TIDPRN, [place] tablet 10 48 :01 Starting Medica l mg on [place] Branch 05/26/22 at 2347, Until 05/29/22 at 1203, Routine, Muscle Spasms HYDROcodone 2022-0 3- No 1{tbl} 1 tablet, Univers -acetaminop 05-27 Oral, ity of hen (NORCO 04:44: 17:03 Q6HPRN, [place] 5) 5-325 mg 15 :15 Starting Medi gordon tablet 1 on [facility] Branch tablet 05/26/22 at 2344, Until 05/29/22 at 1203, Routine, Pain (scale 4-6) ondansetron 2023-0 Yes 4mg 4 mg, Slow Univers (ZOFRAN 4-14 IV Push, ity of (PF)) 01:30: Q6HPRN, [place] injection 4 58 Starting Medi gordon mg on [facility] Branch 05/26/22 at 2030, Until Discontinu ed, Routine, Nausea and Vomiting (N/V) ondansetron 2023-0 Yes 4mg 4 mg, Slow Univers (ZOFRAN 4-14 IV Push, ity of (PF)) 01:30: Q6HPRN, [place] injection 4 58 Starting Medi gordon mg on [facility] Branch 05/26/22 at 2030, Until Discontinu ed, Routine, Nausea and Vomiting (N/V) ondansetron 2023-0 Yes 4mg 4 mg, Slow Univers (ZOFRAN 4-14 IV Push, ity of (PF)) 01:30: Q6HPRN, [place] injection 4 58 Starting Medi gordon mg on [facility] Branch 05/26/22 at 2030, Until Discontinu ed, Routine, Nausea and Vomiting (N/V) ondansetron 2023-0 Yes 4mg 4 mg, Slow Univers (ZOFRAN 4-14 IV Push, ity of (PF)) 01:30: Q6HPRN, [place] injection 4 58 Starting Medi gordon mg on [facility] Branch 05/26/22 at 2030, Until Discontinu ed, Routine, Nausea and Vomiting (N/V) morpHINE (2 2022-2022- No 4mg 4 mg, Slow Univers mg/mL) 05-27 IV Push, ity of injection 4 01:30: 01:29 Q4HPRN, [place] mg 55 :55 Starting Medical on [facility] Branch 05/26/22 at 2030, Until Mon05/27/22 at 2029, Routine, Pain (scale 7-10) methocarbam 2022- No 500mg 500 mg, U nivers oL 05-27 Oral, ity of (ROBAXIN) 00:00: 23:10 ONCE, 1 [place] tablet 500 00 :00 dose, On Medic al mg [facility] Branch 05/26/22 at 1900, Routine traMADoL 2022- No 50mg 50 mg, Univer s (ULTRAM) 05-26 Oral, ity of tablet 50 23:45: 23:10 ONCE, 1 [place] mg 00 :00 dose, On [facility] Branch 05/26/22 at 1845, Routine gabapentin 2022- No 300mg 300 mg, Un mary (NEURONTIN) 05-26 Oral, ity of capsule 300 23:00: 23:10 ONCE, 1 [place] mg 00 :00 dose, On [facility] Branch 05/26/22 at 1800, MICHELLE methylpredn 2022- No 125mg 125 mg, U nivers isolone sod 05-26 Slow IV ity of succ 22:15: 21:28 Push, [place] (SOLU-MEDRO 00 :00 ONCE, 1 Medic al L) dose, On Branch injection [place] 125 mg 05/26/22 at 1715, MICHELLE furosemide 2022- No 40mg 40 mg, IV U nivers (LASIX) 05-26 Push, ity of injection 21:15: 21:19 ONCE, 1 [place] 40 mg 00 :00 dose, On [facility] Branch 05/26/22 at 1615, MICHELLE ketorolac 2022- No 30mg 30 mg, Unive rs (TORADOL) 05-23 Intramuscu ity of injection 23:00: 22:35 [place], ONCE, [place] 30 mg 00 :00 1 dose, On [facility] Branch 4/10/23 at 1800, Routine diazePAM 2022- No 2.5mg 2.5 mg, Univ ers (VALIUM) 05-23 Oral, ity of tablet 2.5 22:45: 23:09 ONCE, 1 [place] mg 00 :00 dose, On [facility] 05/23/22 at 1745, MICHELLE HYDROcodone 2022-0 2022- No 1{tbl} 1 tablet, Univers -acetaminop 05-23 Oral, ONCE i ty of hen (NORCO) 11:45: 11:00 NOW, 1 [place] 10-325 mg 00 :00 dose, On Medica l tablet 1 [facility] tablet 05/23/22 at 0645, MICHELLE gabapentin 2022-0 2022- No 600mg 600 mg, Un mary (NEURONTIN) 05-23 Oral, ity of capsule 600 09:00: 09:09 ONCE, 1 [place] mg 00 :00 dose, On [facility] 05/23/22 at 0400, MICHELLE dexamethaso No 10mg 10 mg, Uni vers ne sod phos 05-23 Intramuscu i ty of PF 09:00: 09:07 lar, ONCE, [place] injection 00 :00 1 dose, On Medi gordon 10 mg [facility] 05/23/22 at 0400, 1 mL gabapentin 2022-0 Yes [id number] 300mg Take 1 Univers 300 mg 4-10 capsule by ity of capsule 00:00: mouth in [place] [address] the [facility] Branch and 1 capsule at noon and 1 capsule in the evening. gabapentin 2022-0 Yes [id number] 300mg Take 1 Univers 300 mg 4-10 capsule by ity of capsule 00:00: mouth in [place] [address] the [facility] morning [facility] and 1 capsule at noon and 1 capsule in the evening. gabapentin 2022-0 Yes [id number] 300mg Take 1 Univers 300 mg 4-10 capsule by ity of capsule 00:00: mouth in [place] [address] the [facility] morning [facility] and 1 capsule at noon and 1 capsule in the evening. ketorolac 2022-0 Yes [id number] 10mg Take 1 U nivers 10 mg 4-10 tablet by ity of tablet 00:00: mouth [place] 00 every 6 Medical (six) Branch hours as needed for Pain (scale 7-10). gabapentin 2023-0 Yes [id number] 300mg Take 1 Univers 300 mg 4-10 capsule by ity of capsule 00:00: mouth in [place] 00 the Medical morning Branch and 1 capsule at noon and 1 capsule in the evening. ketorolac 2023-0 Yes [id number] 10mg Take 1 U nivers 10 mg 4-10 tablet by ity of tablet 00:00: mouth [place] 00 every 6 Medical (six) Branch hours as needed for Pain (scale 7-10). gabapentin 2023-0 Yes [id number] 300mg Take 1 Univers 300 mg 4-10 capsule by ity of capsule 00:00: mouth in [place] 00 the Medical morning Branch and 1 capsule at noon and 1 capsule in the evening. ketorolac 2023-0 Yes [id number] 10mg Take 1 U nivers 10 mg 4-10 tablet by ity of tablet 00:00: mouth [place] 00 every 6 Medical (six) Branch hours as needed for Pain (scale 7-10). gabapentin 2023-0 Yes [id number] 300mg Take 1 Univers 300 mg 4-10 capsule by ity of capsule 00:00: mouth in [place] [address] the Medical morning Branch and 1 capsule at noon and 1 capsule in the evening. ketorolac 2023-0 Yes [id number] 10mg Take 1 U nivers 10 mg 4-10 tablet by ity of tablet 00:00: mouth [place] 00 every 6 Medical (six) Branch hours as needed for Pain (scale 7-10). gabapentin 2023-0 Yes [id number] 300mg Take 1 Univers 300 mg 4-10 capsule by ity of capsule 00:00: mouth in [place] [address] the Medical morning Branch and 1 capsule at noon and 1 capsule in the evening. ketorolac 2023-0 Yes [id number] 10mg Take 1 U nivers 10 mg 4-10 tablet by ity of tablet 00:00: mouth [place] 00 every 6 Medical (six) Branch hours as needed for Pain (scale 7-10). gabapentin 2023-0 Yes [id number] 300mg Take 1 Univers 300 mg 4-10 capsule by ity of capsule 00:00: mouth in [place] [address] the Medical morning Branch and 1 capsule at noon and 1 capsule in the evening. ketorolac 2023-0 Yes [id number] 10mg Take 1 U nivers 10 mg 4-10 tablet by ity of tablet 00:00: mouth [place] 00 every 6 Medical (six) Branch hours as needed for Pain (scale 7-10). gabapentin 2022- No [id number] 300mg Take 1 Univers 300 mg 4-10 04-25 capsule by ity of capsule 00:00: 00:00 mouth in [place] 00 :00 the Medical morning Branch and 1 capsule at noon and 1 capsule in the evening. methocarbam 2022- No [id number] 500mg Take 1 Univers oL 500 mg 4-10 04-25 tablet by ity of tablet 00:00: 00:00 mouth 4 [place] 00 :00 (four) Medical times Branch daily for 7 days. ketorolac 2022- No [id number] 10mg Take 1 Univers 10 mg 4-10 04-25 tablet by ity of tablet 00:00: 00:00 mouth [place] 00 :00 every 6 Medical (six) Branch hours as needed for Pain (scale 7-10). methocarbam 2022- Yes [id number] 500mg Take 1 Univers oL 500 mg 4-10 04-18 tablet by ity of tablet 00:00: 04:59 mouth 4 [place] 00 :00 (four) Medical times Branch daily for 7 days. methocarbam 2022- Yes [id number] 500mg Take 1 Univers oL 500 mg 4-10 04-18 tablet by ity of tablet 00:00: 04:59 mouth 4 [place] 00 :00 (four) Medical times Branch daily for 7 days. methocarbam 2022- Yes [id number] 500mg Take 1 Univers oL 500 mg 4-10 04-18 tablet by ity of tablet 00:00: 04:59 mouth 4 [place] 00 :00 (four) Medical times Branch daily for 7 days. methocarbam 2022- No [id number] 500mg Take 1 Univers oL 500 mg 4-10 04-18 tablet by ity of tablet 00:00: 04:59 mouth 4 [place] 00 :00 (four) Medical times Branch daily for 7 days. methocarbam 2022- No [id number] 500mg Take 1 Univers oL 500 mg 4-10 04-18 tablet by ity of tablet 00:00: 04:59 mouth 4 [place] 00 :00 (four) Medical times Branch daily for 7 days. mirtazapine 3-0 Yes [id number] 45mg Take 1 Univers 45 mg 2-23 tablet by ity of tablet 00:00: mouth at [place] [address] bedtime. [facility] mirtazapine 2022-0 Yes [id number] 45mg Take 1 [facility] 45 mg 2-23 tablet by [facility] tablet 00:00: mouth at [place] [address] bedtime. [facility] mirtazapine 2022-0 Yes [id number] 45mg Take 1 [facility] 45 mg 2-23 tablet by [facility] tablet 00:00: mouth at [place] [address] bedtime. [facility] mirtazapine 2022-0 Yes [id number] 45mg Take 1 [facility] 45 mg 2-23 tablet by [facility] tablet 00:00: mouth at [place] [address] bedtime. [facility] mirtazapine 2022-0 Yes [id number] 45mg Take 1 [facility] 45 mg 2-23 tablet by [facility] of tablet 00:00: mouth at [place] [address] bedtime. Medical Branch mirtazapine 2022-0 Yes [id number] 45mg Take 1 [facility] 45 mg 2-23 tablet by [facility] of tablet 00:00: mouth at [place] [address] bedtime. [facility] Branch mirtazapine 2022-0 Yes [id number] 45mg Take 1 [facility] 45 mg 2-23 tablet by [facility] of tablet 00:00: mouth at [place] [address] bedtime. Medical Branch mirtazapine 2022-0 Yes [id number] 45mg Take 1 [facility] 45 mg 2-23 tablet by [facility] of tablet 00:00: mouth at [place] [address] bedtime. [facility] Branch mirtazapine 2022-0 Yes [id number] 45mg Take 1 [facility] 45 mg 2-23 tablet by [facility] of tablet 00:00: mouth at [place] [address] bedtime. Medical Branch mirtazapine 3-0 Yes [id number] 45mg Take 1 [facility] 45 mg 2-23 tablet by [facility] of tablet 00:00: mouth at [place] [address] bedtime. Medical Branch mirtazapine 2022-0 Yes [id number] 45mg Take 1 [facility] 45 mg 2-23 tablet by [facility] of tablet 00:00: mouth at [place] [address] bedtime. Medical Branch mirtazapine 3-0 Yes [id number] 45mg Take 1 [facility] 45 mg 2-23 tablet by [facility] of tablet 00:00: mouth at [place] [address] bedtime. Medical Branch mirtazapine 2022-0 Yes [id number] 45mg Take 1 [facility] 45 mg 2-23 tablet by [facility] of tablet 00:00: mouth at [place] [address] bedtime. [facility] Branch mirtazapine 2022-0 Yes [id number] 45mg Take 1 [facility] 45 mg 2-23 tablet by [facility] of tablet 00:00: mouth at [place] [address] bedtime. [facility] Branch mirtazapine 2022-0 Yes [id number] 45mg Take 1 [facility] 45 mg 2-23 tablet by it[facility] of tablet 00:00: mouth at [place] [address] bedtime. [facility] Branch mirtazapine 2022-0 Yes [id number] 45mg Take 1 [facility] 45 mg 2-23 tablet by [facility] of tablet 00:00: mouth at [place] [address] bedtime. [facility] Branch mirtazapine 2022-0 Yes [id number] 45mg Take 1 [facility] 45 mg 2-23 tablet by [facility] of tablet 00:00: mouth at [place] [address] bedtime. [facility] Branch mirtazapine 2022-0 Yes [id number] 45mg Take 1 [facility] 45 mg 2-23 tablet by [facility] of tablet 00:00: mouth at [place] [address] bedtime. [facility] Branch mirtazapine 2022-0 Yes [id number] 45mg Take 1 [facility] 45 mg 2-23 tablet by [facility] of tablet 00:00: mouth at [place] [address] bedtime. [facility] Branch mirtazapine 2022-0 Yes [id number] 45mg Take 1 [facility] 45 mg 2-23 tablet by [facility] of tablet 00:00: mouth at [place] [address] bedtime. [facility] Branch mirtazapine 2022-0 Yes [id number] 45mg Take 1 [facility] 45 mg 2-23 tablet by it[facility] of tablet 00:00: mouth at [place] [address] bedtime. [facility] Branch mirtazapine 2022-0 Yes [id number] 45mg Take 1 [facility] 45 mg 2-23 tablet by [facility] of tablet 00:00: mouth at [place] [address] bedtime. [facility] Branch mirtazapine 2022-0 Yes [id number] 45mg Take 1 [facility] 45 mg 2-23 tablet by [facility] of tablet 00:00: mouth at [place] [address] bedtime. [facility] Branch mirtazapine 2022-0 Yes [id number] 45mg Take 1 [facility] 45 mg 2-23 tablet by [facility] of tablet 00:00: mouth at [place] [address] bedtime. [facility] Branch mirtazapine 2022-0 Yes [id number] 45mg Take 1 [facility] 45 mg 2-23 tablet by [facility] of tablet 00:00: mouth at [place] [address] bedtime. [facility] Branch mirtazapine 2022-0 2023- No [id number] 45mg Take 1 [facility] 45 mg 2-23 04-25 tablet by [facility] of tablet 00:00: 00:00 mouth at [place] 00 :00 bedtime. [facility] mirtazapine 2021- Yes [id number] 30mg Take 1 [facility] 30 mg 2-21 tablet by [facility] of tablet 00:00: mouth at [place] [address] bedtime. [facility] Branch mirtazapine 2021- Yes [id number] 30mg Take 1 [facility] 30 mg 2-21 tablet by [facility] of tablet 00:00: mouth at [place] [address] bedtime. [facility] Branch mirtazapine 2021- Yes [id number] 30mg Take 1 [facility] 30 mg 2-21 tablet by [facility] of tablet 00:00: mouth at [place] [address] bedtime. [facility] Branch mirtazapine 2021- Yes [id number] 30mg Take 1 [facility] 30 mg 2-21 tablet by it[facility] of tablet 00:00: mouth at [place] [address] bedtime. [facility] Branch mirtazapine 2021- Yes [id number] 30mg Take 1 [facility] 30 mg 2-21 tablet by it[facility] of tablet 00:00: mouth at [place] [address] bedtime. Medical Branch mirtazapine 2021- Yes [id number] 30mg Take 1 [facility] 30 mg 2-21 tablet by it[facility] of tablet 00:00: mouth at [place] [address] bedtime. [facility] Branch mirtazapine 2021- Yes [id number] 30mg Take 1 [facility] 30 mg 2-21 tablet by [facility] of tablet 00:00: mouth at [place] [address] bedtime. [facility] Branch mirtazapine 2021- Yes [id number] 30mg Take 1 [facility] 30 mg 2-21 tablet by [facility] of tablet 00:00: mouth at [place] [address] bedtime. [facility] mirtazapine 2021- Yes [id number] 30mg Take 1 [facility] 30 mg 2-21 tablet by [facility] of tablet 00:00: mouth at [place] [address] bedtime. Medical Branch mirtazapine 2021-02- No [id number] 30mg Take 1 [facility] 30 mg -05 04- tablet by it[facility] of tablet 00:00: 00:00 mouth at [place] 00 :00 bedtime. [facility] mirtazapine 2021-02- No [id number] 30mg Take 1 [facility] 30 mg 2-05 04- tablet by ity of tablet 00:00: 00:00 mouth at [place] 00 :00 bedtime. [facility] Branch traMADoL 50 2021-02 Yes 50mg Take 1 Univ ers mg tablet 2-08 tablet by ity o f 00:00: mouth in [place] 00 the Medical morning Branch and 1 tablet at noon and 1 tablet in the evening. traMADoL 50 2021-02 Yes 50mg Take 1 Univ ers mg tablet 2-08 tablet by ity o f 00:00: mouth in [place] the Medical morning Branch and 1 tablet at noon and 1 tablet in the evening. traMADoL 50 2021-02 Yes 50mg Take 1 [facility] ers mg tablet 2-08 tablet by ity o f 00:00: mouth in [place] the Medical morning Branch and 1 tablet at noon and 1 tablet in the evening. traMADoL 50 2021-02 Yes 50mg Take 1 [facility] ers mg tablet 2-08 tablet by ity o f 00:00: mouth in [place] the Medical morning Branch and 1 tablet at noon and 1 tablet in the evening. traMADoL 50 2021-02 Yes 50mg Take 1 [facility] ers mg tablet 2-08 tablet by ity o f 00:00: mouth in [place] the Medical morning Branch and 1 tablet at noon and 1 tablet in the evening. traMADoL 50 2021-02 Yes 50mg Take 1 [facility] ers mg tablet 2-08 tablet by ity o f 00:00: mouth in [place] the Medical morning Branch and 1 tablet at noon and 1 tablet in the evening. traMADoL 50 2021-02 Yes 50mg Take 1 [facility] ers mg tablet 2-08 tablet by ity o f 00:00: mouth in [place] the Medical morning Branch and 1 tablet at noon and 1 tablet in the evening. traMADoL 50 2021-02 Yes 50mg Take 1 [facility] ers mg tablet 2-08 tablet by ity o f 00:00: mouth in [place] [address] the Medical morning Branch and 1 tablet at noon and 1 tablet in the evening. traMADoL 50 2021-02 Yes 50mg Take 1 [facility] ers mg tablet 2-08 tablet by ity o f 00:00: mouth in [place] 00 the Medical morning Branch and 1 tablet at noon and 1 tablet in the evening. traMADoL 50 2021-02 Yes 50mg Take 1 [facility] ers mg tablet 2-08 tablet by ity o f 00:00: mouth in [place] 00 the Medical morning Branch and 1 tablet at noon and 1 tablet in the evening. traMADoL 50 2021-02 Yes 50mg Take 1 [facility] ers mg tablet 2-08 tablet by ity o f 00:00: mouth in [place] 00 the Medical morning Branch and 1 tablet at noon and 1 tablet in the evening. traMADoL 50 2021-02 Yes 50mg Take 1 [facility] ers mg tablet 2-08 tablet by ity o f 00:00: mouth in [place] [address] the Medical morning Branch and 1 tablet at noon and 1 tablet in the evening. traMADoL 50 2021-02 Yes 50mg Take 1 [facility] ers mg tablet 2-08 tablet by ity o f 00:00: mouth in [place] [address] the Medical morning Branch and 1 tablet at noon and 1 tablet in the evening. traMADoL 50 2021-02 Yes 50mg Take 1 [facility] ers mg tablet 2-08 tablet by ity o f 00:00: mouth in [place] the Medical morning Branch and 1 tablet at noon and 1 tablet in the evening. traMADoL 50 2021-02 Yes 50mg Take 1 [facility] ers mg tablet 2-08 tablet by ity o f 00:00: mouth in [place] the Medical morning Branch and 1 tablet at noon and 1 tablet in the evening. traMADoL 50 2021-02 Yes 50mg Take 1 [facility] ers mg tablet 2-08 tablet by ity o f 00:00: mouth in [place] [address] the Medical morning Branch and 1 tablet at noon and 1 tablet in the evening. traMADoL 50 2021- Yes 50mg Take 1 [facility] ers mg tablet 2-08 tablet by ity o f 00:00: mouth in [place] [address] the Medical morning Branch and 1 tablet at noon and 1 tablet in the evening. traMADoL 50 2021-02 Yes 50mg Take 1 [facility] ers mg tablet 2-08 tablet by ity o f 00:00: mouth in [place] [address] the Medical morning Branch and 1 tablet at noon and 1 tablet in the evening. traMADoL 50 2021-02 Yes 50mg Take 50 mg [facility] mg tablet 2-08 by mouth ity of 00:00: in the [place] 00 morning Medical and 50 mg Branch at noon and 50 mg in the evening. traMADoL 50 2021- Yes 50mg Take 50 mg [facility] mg tablet 2-08 by mouth ity of 00:00: in the [place] 00 morning Medical and 50 mg Branch at noon and 50 mg in the evening. traMADoL 50 2021-02 Yes 50mg Take 50 mg [facility] mg tablet 2-08 by mouth ity of 00:00: in the [place] 00 morning Medical and 50 mg Branch at noon and 50 mg in the evening. traMADoL 50 2021-02 Yes 50mg Take 50 mg [facility] mg tablet 2-08 by mouth ity of 00:00: in the [place] morning Medical and 50 mg Branch at noon and 50 mg in the evening. traMADoL 50 2021-02 Yes 50mg Take 50 mg [facility] mg tablet 2-08 by mouth ity of 00:00: in the [place] morning Medical and 50 mg Branch at noon and 50 mg in the evening. traMADoL 50 2021-02 Yes 50mg Take 50 mg [facility] mg tablet 2-08 by mouth ity of 00:00: in the [place] morning Medical and 50 mg Branch at noon and 50 mg in the evening. traMADoL 50 2021-02 Yes 50mg Take 50 mg [facility] mg tablet 2-08 by mouth ity of 00:00: in the [place] morning Medical and 50 mg Branch at noon and 50 mg in the evening. traMADoL 50 2021-02 Yes 50mg Take 50 mg [facility] mg tablet 2-08 by mouth ity of 00:00: in the [place] morning Medical and 50 mg Branch at noon and 50 mg in the evening. traMADoL 50 2021-02 Yes 50mg Take 50 mg [facility] mg tablet 2-08 by mouth ity of 00:00: in the [place] morning Medical and 50 mg Branch at noon and 50 mg in the evening. traMADoL 50 2021-1 Yes 50mg Take 50 mg [facility] mg tablet 2-08 by mouth ity of 00:00: in the [place] 00 morning Medical and 50 mg Branch at noon and 50 mg in the evening. traMADoL 50 2021-02 Yes 50mg Take 50 mg [facility] mg tablet 2-08 by mouth ity of 00:00: in the [place] 00 morning Medical and 50 mg Branch at noon and 50 mg in the evening. traMADoL 50 2021-02 Yes 50mg Take 50 mg [facility] mg tablet 2-08 by mouth ity of 00:00: in the [place] 00 morning Medical and 50 mg Branch at noon and 50 mg in the evening. traMADoL 50 2021-02 Yes 50mg Take 50 mg [facility] mg tablet 2-08 by mouth ity of 00:00: in the [place] morning Medical and 50 mg Branch at noon and 50 mg in the evening. traMADoL 50 2021-02 Yes 50mg Take 50 mg [facility] mg tablet 2-08 by mouth ity of 00:00: in the [place] 00 morning Medical and 50 mg Branch at noon and 50 mg in the evening. traMADoL 50 2021-02 Yes 50mg Take 1 [facility] ers mg tablet 2-08 tablet by ity o f 00:00: mouth in [place] 00 the Medical morning Branch and 1 tablet at noon and 1 tablet in the evening. traMADoL 50 2021-02 Yes 50mg Take 1 [facility] ers mg tablet 2-08 tablet by ity o f 00:00: mouth in [place] 00 the Medical morning Branch and 1 tablet at noon and 1 tablet in the evening. traMADoL 50 2021-02 Yes 50mg Take 1 [facility] ers mg tablet 2-08 tablet by ity o f 00:00: mouth in [place] 00 the Medical morning Branch and 1 tablet at noon and 1 tablet in the evening. traMADoL 50 2021-02- No 50mg Take 1 [facility] vers mg tablet 2-08 04-25 tablet by ity of 00:00: 00:00 mouth in [place] 00 :00 the Medical morning Branch and 1 tablet at noon and 1 tablet in the evening. mirtazapine 2021-02 Yes [id number] 15mg Take 1 [facility] 15 mg 1-21 tablet by ity of tablet 00:00: mouth at [place] [address] bedtime. Medical Branch mirtazapine 2021-02 Yes [id number] 15mg Take 1 [facility] 15 mg 1-21 tablet by ity of tablet 00:00: mouth at [place] [address] bedtime. Medical Branch mirtazapine 2021-02 Yes [id number] 15mg Take 1 [facility] 15 mg 1-21 tablet by ity of tablet 00:00: mouth at [place] 00 bedtime. Medical Branch mirtazapine 2021-02- No [id number] 15mg Take 1 [facility] 15 mg 1-21 12-21 tablet by ity of tablet 00:00: 00:00 mouth at [place] 00 :00 bedtime. Medical Branch mirtazapine 2021-02- No [id number] 15mg Take 1 [facility] 15 mg 1-21 12-21 tablet by ity of tablet 00:00: 00:00 mouth at [place] 00 :00 bedtime. Medical Branch vortioxetin 2021-02 Yes [id number] 5mg Take 1 [facility] e 0-20 tablet by ity of (TRINTELLIX 00:00: mouth in [place] ) 5 mg Tab 00 the Medical morning. Branch vortioxetin 2021-02 Yes [id number] 5mg Take 1 [facility] e 0-20 tablet by ity of (TRINTELLIX 00:00: mouth in [place] ) 5 mg Tab 00 the Medical morning. Branch vortioxetin 2021-02 Yes [id number] 5mg Take 1 [facility] e 0-20 tablet by ity of (TRINTELLIX 00:00: mouth in [place] ) 5 mg Tab 00 the Medical morning. Branch vortioxetin 2021-02 Yes [id number] 5mg Take 1 [facility] e 0-20 tablet by ity of (TRINTELLIX 00:00: mouth in [place] ) 5 mg Tab 00 the Medical morning. Branch vortioxetin 2021-02 Yes [id number] 5mg Take 1 [facility] e 0-20 tablet by ity of (TRINTELLIX 00:00: mouth in [place] ) 5 mg Tab 00 the Medical morning. Branch vortioxetin 2021-02 Yes [id number] 5mg Take 1 [facility] e 0-20 tablet by ity of (TRINTELLIX 00:00: mouth in [place] ) 5 mg Tab 00 the Medical morning. Branch vortioxetin 2021-02- No [id number] 5mg Take 1 [facility] e 0-20 11-21 tablet by ity of (TRINTELLIX 00:00: 00:00 mouth in [place] ) 5 mg Tab 00 :00 the Medical morning. Branch vortioxetin 2021-02- No [id number] 5mg Take 1 [facility] e 0-20 11-21 tablet by ity of (TRINTELLIX 00:00: 00:00 mouth in [place] ) 5 mg Tab 00 :00 the Medical morning. Branch DULoxetine 0 Yes [id number] 20mg Take 1 [facility] 20 mg 9-20 capsule by ity of capsule 00:00: mouth in [place] 00 the Medical morning. Branch DULoxetine 2021-0 Yes [id number] 20mg Take 1 [facility] 20 mg 9-20 capsule by ity of capsule 00:00: mouth in [place] 00 the Medical morning. Branch DULoxetine 2021-0 Yes [id number] 20mg Take 1 [facility] 20 mg 9-20 capsule by ity of capsule 00:00: mouth in [place] 00 the Medical morning. Branch DULoxetine 0 Yes [id number] 20mg Take 1 [facility] 20 mg 9-20 capsule by ity of capsule 00:00: mouth in [place] 00 the Medical morning. Branch DULoxetine 2021-0 Yes [id number] 20mg Take 1 [facility] 20 mg 9-20 capsule by ity of capsule 00:00: mouth in [place] the Medical morning. Branch DULoxetine 2021-2021- No [id number] 20mg Take 1 [facility] 20 mg 9-20 10-20 capsule by ity of capsule 00:00: 00:00 mouth in [place] 00 :00 the Medical morning. Branch DULoxetine 2021- No [id number] 20mg Take 1 [facility] 20 mg 9-20 10-20 capsule by ity of capsule 00:00: 00:00 mouth in [place] 00 :00 the Medical morning. Branch gabapentin 2021-0 Yes [id number] 300mg Take 1 [facility] 300 mg 8-23 capsule by ity of capsule 00:00: mouth at [place] [address] bedtime. Medical Branch gabapentin 2021-0 Yes [id number] 300mg Take 1 [facility] 300 mg 8-23 capsule by ity of capsule 00:00: mouth at [place] [address] bedtime. Medical Branch gabapentin 2021-0 Yes [id number] 300mg Take 1 [facility] 300 mg 8-23 capsule by ity of capsule 00:00: mouth at [place] [address] bedtime. Medical Branch gabapentin 2021-0 2021- No [id number] 300mg Take 1 [facility] 300 mg 8-23 09-20 capsule by ity of capsule 00:00: 00:00 mouth at [place] 00 :00 bedtime. Medical Branch gabapentin 2021-2021- No [id number] 300mg Take 1 [facility] 300 mg 10-05 capsule by ity of capsule 00:00: 00:00 mouth at [place] 00 :00 bedtime. Medical Branch mirtazapine 2021-2021- No 30mg Take 30 mg [facility] 30 mg 09-20 by mouth ity of tablet 00:00: 00:00 in the [place] 00 :00 morning. Medical Branch mirtazapine 2021-2021- No 30mg Take 30 mg [facility] 30 mg 09-20 by mouth ity of tablet 00:00: 00:00 in the [place] 00 :00 morning. Medical Branch sertraline 2020-0 [...] 6-09 (Same as: l 18:36: BD [place] Posiflush) Saline No Notes: [place] Flush 0.9% 6-09 (Same as: l 18:36: BD [place] Posiflush) Saline No Notes: [facility] Flush 0.9% 6-09 (Same as: l 18:36: BD [place] 00 Posiflush) Saline No Notes: [facility] Flush 0.9% 6-09 (Same as: l 18:36: BD [place] 00 Posiflush) Saline No Notes: [facility] Flush 0.9% 6-09 (Same as: l 18:36: BD [place] 00 Posiflush) Saline No Notes: [facility] Flush 0.9% 6-09 (Same as: l 18:36: BD [place] 00 Posiflush) Saline No Notes: [facility] Flush 0.9% 6-09 (Same as: l 18:36: BD [place] 00 Posiflush) Saline No Notes: [facility] Flush 0.9% 6-09 (Same as: l 18:36: BD [place] 00 Posiflush) Saline No Notes: [facility] Flush 0.9% 6-09 (Same as: l 18:36: BD [place] 00 Posiflush) Saline No Notes: [facility] Flush 0.9% 6-09 (Same as: l 18:36: BD [place] 00 Posiflush) Saline No Notes: [facility] Flush 0.9% 6-09 (Same as: l 18:36: BD [place] 00 Posiflush) Saline No Notes: [facility] Flush 0.9% 6-09 (Same as: l 18:36: BD [place] 00 Posiflush) Saline No Notes: [facility] Flush 0.9% 6-09 (Same as: l 18:36: BD [place] 00 Posiflush) Saline No Notes: [facility] Flush 0.9% 6-09 (Same as: l 18:36: BD [place] 00 Posiflush) Saline No Notes: [facility] Flush 0.9% 6-09 (Same as: l 18:36: BD [place] 00 Posiflush) Saline No Notes: [facility] Flush 0.9% 6-09 (Same as: l 18:36: BD [place] 00 Posiflush) Saline No Notes: [facility] Flush 0.9% 6-09 (Same as: l 18:36: BD [place] 00 Posiflush) Saline No Notes: [facility] Flush 0.9% 6-09 (Same as: l 18:36: BD [place] 00 Posiflush) Saline No Notes: [facility] Flush 0.9% 6-09 (Same as: l 18:36: BD [place] 00 Posiflush) Saline No Notes: [facility] Flush 0.9% 6-09 (Same as: l 18:36: BD [place] 00 Posiflush) Saline No Notes: [facility] Flush 0.9% 6-09 (Same as: l 18:36: BD [place] 00 Posiflush) Saline No Notes: [facility] Flush 0.9% 6-09 (Same as: l 18:36: BD [place] 00 Posiflush) Saline No Notes: [facility] Flush 0.9% 6-09 (Same as: l 18:36: BD [place] 00 Posiflush) Saline No Notes: [facility] Flush 0.9% 6-09 (Same as: l 18:36: BD [place] 00 Posiflush) Saline No Notes: [facility] Flush 0.9% 6-09 (Same as: l 18:36: BD [place] 00 Posiflush) Saline No Notes: [facility] Flush 0.9% 6-09 (Same as: l 18:36: BD [place] 00 Posiflush) Saline No Notes: [facility] Flush 0.9% 6-09 (Same as: l 18:36: BD [place] 00 Posiflush) Vital Signs Vital Name Observation Time Observation Value Comments Source Systolic blood 2022-07-11 15:10:00 117 [facility]-11 15:10:00 68 [facility]Hg[facility] Heart rate 2022-07-11 15:10:00 74 /min [facility] Body temperature 2022-07-11 15:10:00 36.94 [facility] Respiratory rate 2022-07-11 15:10:00 18 /min [facility] Body weight 2022-07-11 15:10:00 90.719 kg [facility] [place] [facility] BMI 2022-07-11 15:10:00 32.28 kg/m2 [facility] [place] [facility] Oxygen saturation in 2022-07-11 15:10:00 98 /min [facility] Arterial blood by [facility] Pulse oximetry Branch Systolic blood 2022-07-11 11:20:00 133 mm[Hg] [facility] s[facility] of pressure [place] [facility] Diastolic blood 2022-07-11 11:20:00 69 mm[Hg] Unive rsity of pressure [place] [facility] Heart rate 2022-07-11 11:20:00 78 /min [facility] [place] [facility] Respiratory rate 2022-07-11 11:20:00 18 /min [facility] [place] [facility] Oxygen saturation in 2022-07-11 11:20:00 99 /min [facility] Arterial blood by [facility] Pulse oximetry Branch Body temperature 2022-07-11 09:24:00 36.83 [facility] [place] [facility] Body weight 2022-07-11 09:24:00 90.719 kg [facility] [place] [facility] BMI 2022-07-11 09:24:00 32.28 kg/m2 [facility] [place] [facility] Systolic blood 2022-07-08 18:24:00 130 mm[Hg] [facility] of [facility] [place] [facility] Diastolic blood 2022-07-08 18:24:00 57 mm[Hg] [facility] rsity of pressure [place] [facility] Heart rate 2022-07-08 18:24:00 87 /min [facility] [place] [facility] Body temperature 2022-07-08 18:24:00 36.72 [place] [facility] [place] [facility] Respiratory rate 2022-07-08 18:24:00 18 /min [facility] [place] [facility] Body weight 2022-07-08 18:24:00 90.719 kg [facility] [place] [facility] BMI 2022-07-08 18:24:00 32.28 kg/m2 [facility] [place] [facility] Oxygen saturation in 2022-07-08 18:24:00 97 /min [facility] Arterial blood by [facility] Pulse oximetry Branch Systolic blood 2022-07-05 14:00:00 155 mm[Hg] [facility] of pressure [place] [facility] Diastolic blood 2022-07-05 14:00:00 80 mm[Hg] Un[facility] rsity of [facility] [place] [facility] Heart rate 2022-07-05 14:00:00 76 /min [facility] [place] [facility] Body temperature 2022-07-05 14:00:00 37.56 [place] [facility] [place] [facility] Respiratory rate 2022-07-05 14:00:00 16 /min [facility] [place] [facility] Oxygen saturation in 2022-07-05 14:00:00 98 /min [facility] Arterial blood by [place] [facility] Pulse oximetry Branch Body weight 2022-07-05 10:49:00 90.719 kg [facility] [place] [facility] BMI 2022-07-05 10:49:00 32.28 kg/m2 [facility] [place] [facility] HEIGHT 2022-06-21 11:16:00 167.6 cm WEIGHT 2022-06-21 11:16:00 87.181 kg HEIGHT 2022-06-21 11:16:00 167.6 cm WEIGHT 2022-06-21 11:16:00 87.181 kg HEIGHT 2022-06-21 11:16:00 167.6 cm WEIGHT 2022-06-21 11:16:00 87.181 kg Systolic blood 2022-06-16 16:05:00 112 mm[Hg] [facility] [place] [facility] Diastolic blood 2022-06-16 16:05:00 72 mm[Hg] [facility] rs[facility] of [facility] [place] [facility] Heart rate 2022-06-16 16:05:00 90 /min [facility] [place] [facility] Body temperature 2022-06-16 16:05:00 36.72 [place] [facility] [place] [facility] Respiratory rate 2022-06-16 16:05:00 16 /min [facility] [place] [facility] Body height 2022-06-16 16:05:00 167.6 cm [facility] [place] [facility] Body weight 2022-06-16 16:05:00 91.173 kg [facility] [place] [facility] BMI 2022-06-16 16:05:00 32.44 kg/m2 [facility] [place] [facility] Oxygen saturation in 2022-06-16 16:05:00 100 /min [facility] Arterial blood by [place] [facility] Pulse oximetry Branch Systolic blood 2022-06-07 18:25:00 140 mm[Hg] [facility] [place] [facility] Diastolic blood 2022-06-07 18:25:00 74 mm[Hg] [facility] [place] [facility] Heart rate 2022-06-07 18:25:00 70 /min [facility] [place] [facility] Body temperature 2022-06-07 18:25:00 36.44 [facility] [place] [facility] Respiratory rate 2022-06-07 18:25:00 20 /min [facility] [place] [facility] Oxygen saturation in 2022-06-07 18:25:00 100 /min [facility] Arterial blood by [place] [facility] Pulse oximetry Branch Body weight 2022-05-27 08:00:00 86.456 kg [facility] [place] [facility] BMI 2022-05-27 08:00:00 30.76 kg/m2 [facility] [place] [facility] Body height 2022-05-27 02:20:00 167.6 cm [facility] [place] [facility] Systolic blood 2022-06-03 10:48:00 136 mm[Hg] [facility] [place] [facility] Diastolic blood 2022-06-03 10:48:00 67 mm[Hg] [facility] [place] [facility] Heart rate 2022-06-03 10:48:00 80 /min [facility] [place] [facility] Body temperature 2022-06-03 10:48:00 36.28 [facility] [facility] [place] [facility] Respiratory rate 2022-06-03 10:48:00 18 /min [facility] [place] [facility] Oxygen saturation in 2022-06-03 10:48:00 97 /min [facility] Arterial blood by [place] [facility] Pulse oximetry Branch Body weight 2022-05-27 08:00:00 86.456 kg [facility] [place] [facility] BMI 2022-05-27 08:00:00 30.76 kg/m2 [facility] [place] [facility] Body height 2022-05-27 02:20:00 167.6 cm [facility] [place] [facility] Systolic blood 2022-05-31 01:00:00 116 mm[Hg] [facility] [place] [facility] Diastolic blood 2022-05-31 01:00:00 68 mm[Hg] [facility] [place] [facility] Heart rate 2022-05-31 01:00:00 79 /min [facility] [place] [facility] Body temperature 2022-05-31 01:00:00 37.78 [place] [facility] [place] [facility] Respiratory rate 2022-05-31 01:00:00 14 /min [facility] [place] [facility] Oxygen saturation in 2022-05-31 01:00:00 96 /min [facility] Arterial blood by [place] [facility] Pulse oximetry Branch Body weight 2022-05-27 08:00:00 86.456 kg [facility] [place] [facility] BMI 2022-05-27 08:00:00 30.76 kg/m2 [facility] [place] [facility] Body height 2022-05-27 02:20:00 167.6 cm [facility] Systolic blood 2022-05-29 15:15:00 138 mm[Hg] [facility] Diastolic blood 2022-05-29 15:15:00 81 mm[Hg] [facility] Heart rate 2022-05-29 15:15:00 62 /min [facility] Body temperature 2022-05-29 15:15:00 36.39 Nita [facility] Respiratory rate 2022-05-29 15:15:00 18 /min [facility] Oxygen saturation in 2022-05-29 15:15:00 100 /min [facility] Arterial blood by [facility] gordon Pulse oximetry Branch Body weight 2022-05-27 08:00:00 86.456 kg [facility] BMI 2022-05-27 08:00:00 30.76 kg/m2 [facility] Body height 2022-05-27 02:20:00 167.6 cm [facility] Systolic blood 2022-05-23 21:38:00 137 mm[Hg] [facility] Diastolic blood 2022-05-23 21:38:00 89 mm[Hg] [facility] Heart rate 2022-05-23 21:38:00 100 /min [facility] Body temperature 2022-05-23 21:38:00 36.67 Nita [facility] Respiratory rate 2022-05-23 21:38:00 20 /min [facility] Body weight 2022-05-23 21:38:00 81.647 kg [facility] BMI 2022-05-23 21:38:00 29.05 kg/m2 [facility] Oxygen saturation in 2022-05-23 21:38:00 100 /min [facility] Arterial blood by [facility] gordon Pulse oximetry Branch Systolic blood 2022-05-23 10:00:00 144 mm[Hg] [facility] Diastolic blood 2022-05-23 10:00:00 79 mm[Hg] [facility] Heart rate 2022-05-23 10:00:00 77 /min [facility] Respiratory rate 2022-05-23 10:00:00 14 /min [facility] Oxygen saturation in 2022-05-23 10:00:00 96 /min [facility]terial blood by [facility] Pulse oximetry Branch Body temperature 2022-05-23 08:49:00 36.72 Nita [facility] Body height 2022-05-23 08:49:00 167.6 cm [facility] Body weight 2022-05-23 08:49:00 81.647 kg [facility] BMI 2022-05-23 08:49:00 29.05 kg/m2 [facility] Systolic blood 2022-05-19 14:32:00 153 mm[Hg] [facility] Diastolic blood 2022-05-19 14:32:00 82 mm[Hg] [facility] Heart rate 2022-05-19 14:31:00 86 /min [facility] Body temperature 2022-05-19 14:31:00 36.11 Nita [facility] Body height 2022-05-19 14:31:00 167.6 cm [facility] Body weight 2022-05-19 14:31:00 87.544 kg [facility] BMI 2022-05-19 14:31:00 31.15 kg/m2 [facility] Oxygen saturation in 2022-05-19 14:31:00 97 /min [facility] Arterial blood by [facility] Pulse oximetry Branch Systolic blood 2022-05-03 14:51:00 136 mm[Hg] [facility] Diastolic blood 2022-05-03 14:51:00 80 mm[Hg] [facility] Heart rate 2022-05-03 14:51:00 68 /min [facility] Body height 2022-05-03 14:51:00 167.6 cm [facility] Body weight 2022-05-03 14:51:00 84.369 kg [facility] BMI 2022-05-03 14:51:00 30.02 kg/m2 [facility] Systolic blood 2022-04-13 15:41:00 128 mm[Hg] [facility] Diastolic blood 2022-04-13 15:41:00 88 mm[Hg] [facility] Heart rate 2022-04-13 15:41:00 88 /min [facility] Respiratory rate 2022-04-13 15:41:00 18 /min [facility] Body height 2022-04-13 15:41:00 167.6 cm [facility] Body weight 2022-04-13 15:41:00 86.047 kg [facility] BMI 2022-04-13 15:41:00 30.62 kg/m2 [facility] Oxygen saturation in 2022-04-13 15:41:00 96 /min [facility] Arterial blood by [facility] Pulse oximetry Branch Systolic blood 2022-04-07 16:41:00 162 mm[Hg] [facility] Diastolic blood 2022-04-07 16:41:00 89 mm[Hg] [facility] Heart rate 2022-04-07 16:41:00 81 /min [facility] Body weight 2022-04-07 16:39:00 86.183 kg [facility] BMI 2022-04-07 16:39:00 30.67 kg/m2 [facility] Systolic blood 2022-02-02 15:24:00 133 mm[Hg] [facility] Diastolic blood 2022-02-02 15:24:00 82 mm[Hg] [facility] Heart rate 2022-02-02 15:24:00 82 /min [facility] Body height 2022-02-02 15:24:00 167.6 cm [facility] Body weight 2022-02-02 15:24:00 83.008 kg [facility] BMI 2022-02-02 15:24:00 29.54 kg/m2 [facility] Systolic blood 2022-01-03 15:07:00 129 mm[Hg] [facility] Diastolic blood 2022-01-03 15:07:00 82 mm[Hg] [facility] Heart rate 2022-01-03 15:07:00 76 /min [facility] Body temperature 2022-01-03 15:07:00 36.83 Nita [facility] Body height 2022-01-03 15:07:00 167.6 cm [facility] Body weight 2022-01-03 15:07:00 83.462 kg [facility] BMI 2022-01-03 15:07:00 29.70 kg/m2 [facility] Systolic blood 2021-12-08 15:22:00 144 mm[Hg] [facility] Diastolic blood 2021-12-08 15:22:00 84 mm[Hg] [facility] Heart rate 2021-12-08 15:18:00 70 /min [facility] Body height 2021-12-08 15:18:00 167.6 cm [facility] Body weight 2021-12-08 15:18:00 83.326 kg [facility] BMI 2021-12-08 15:18:00 29.65 kg/m2 [facility] Oxygen saturation in 2021-12-08 15:18:00 100 /min [facility] Arterial blood by [facility] Pulse oximetry Branch Systolic blood 2021-12-02 16:05:00 130 mm[Hg] [facility] Diastolic blood 2021-12-02 16:05:00 78 mm[Hg] [facility] Heart rate 2021-12-02 16:05:00 61 /min [facility] Body temperature 2021-12-02 16:05:00 37.22 Nita [facility] Body height 2021-12-02 16:05:00 167.6 cm [facility] Body weight 2021-12-02 16:05:00 84.369 kg [facility] BMI 2021-12-02 16:05:00 30.02 kg/m2 [facility] Systolic blood 2021-11-02 14:34:00 133 mm[Hg] [facility] Diastolic blood 2021-11-02 14:34:00 79 mm[Hg] [facility] Heart rate 2021-11-02 14:34:00 80 /min [facility] Body height 2021-11-02 14:34:00 167.6 cm [facility] Body weight 2021-11-02 14:34:00 84.823 kg [facility] BMI 2021-11-02 14:34:00 30.18 kg/m2 [facility] Systolic blood 2021-10-05 19:18:00 152 mm[Hg] [facility] Diastolic blood 2021-10-05 19:18:00 87 mm[Hg] [facility] Heart rate 2021-10-05 19:18:00 83 /min [facility] Body temperature 2021-10-05 19:18:00 37.33 Nita [facility] Body height 2021-10-05 19:18:00 167.6 cm [facility] Body weight 2021-10-05 19:18:00 86.637 kg [facility] BMI 2021-10-05 19:18:00 30.83 kg/m2 [facility] Oxygen saturation in 2021-10-05 19:18:00 99 /min [facility] Arterial blood by [facility] Pulse oximetry Branch Heart rate 2022-06-23 15:28:08 91 /min [facility] Respiratory rate 2022-06-23 15:28:08 18 /min [facility] Oxygen saturation in 2022-06-23 15:28:08 100 /min [facility] Arterial blood by Medical Ce nter Pulse oximetry Body temperature 2022-06-23 15:28:04 36.89 Nita [facility] Systolic blood 2022-06-23 15:27:00 144 mm[Hg] [facility] Diastolic blood 2022-06-23 15:27:00 79 mm[Hg] [facility] Body height 2022-06-21 11:16:00 167.6 cm [facility] Body weight 2022-06-21 11:16:00 87.181 kg [facility] BMI 2022-06-21 11:16:00 31.02 kg/m2 [facility] Initial DRG Weight: 2020-02-15 05:04:52 0.8372 Working [...] Temperature 2020-02-15 05:04:52 36.6\\S\\97.9 Weight 2020-02-15 05:04:52 78678\\S\\2627.91 Weight Measurement 2020-02-15 05:04:52 Built in Bedscale [...] Temperature 2020-02-10 08:28:02 36.6\\S\\97.9 Weight 2020-02-10 08:28:02 56587\\S\\2627.91 Weight Measurement 2020-02-10 08:28:02 Built in Bedscale Method Have you Lost Weight 2020-02-06 14:55:36 No [...] Temperature 2020-02-06 14:55:36 36.6\\S\\97.9 Weight 2020-02-06 14:55:36 01967\\S\\2627.91 Weight Measurement 2020-02-06 14:55:36 Built in Bedscale Method Initial DRG Weight: 2020-02-06 14:55:36 0.8372 Working DRG Weight: 2020-02-06 14:55:36 0.8372 ARLYN CHARGE Pulse 2020-02-06 14:55:36 Single Pulse Ox Oximetry /min Initial DRG Weight: 2020-02-06 14:55:35 0.8372 Working [...] Temperature 2020-02-06 12:25:52 36.7\\S\\98.1 Weight 2020-02-06 12:25:52 35529\\S\\2627.91 Weight Measurement 2020-02-06 12:25:52 Built in Bedscale [...] Temperature 2020-02-04 14:40:56 36.3\\S\\97.3 Weight 2020-02-04 14:40:56 17361\\S\\2627.91 Weight Measurement 2020-02-04 14:40:56 Built in Bedscale [...] Temperature 2020-02-04 12:53:01 36.3\\S\\97.3 Weight 2020-02-04 12:53:01 36777\\S\\2627.91 Weight Measurement 2020-02-04 12:53:01 Built in Bedscale [...] Temperature 2020-02-04 10:07:56 36.7\\S\\98.1 Weight 2020-02-04 10:07:56 62470\\S\\2627.91 Weight Measurement 2020-02-04 10:07:56 Built in Bedscale [...] Temperature 2020-02-04 06:31:28 36.7\\S\\98.1 Weight 2020-02-04 06:31:28 90566\\S\\2627.91 Weight Measurement 2020-02-04 06:31:28 Built in Bedscale [...] Temperature 2020-02-03 15:40:21 37.1\\S\\98.8 Weight 2020-02-03 15:40:21 44559\\S\\2627.91 Weight Measurement 2020-02-03 15:40:21 Built in Bedscale [...] Temperature 2020-02-03 13:59:33 37.1\\S\\98.8 Weight 2020-02-03 13:59:33 53985\\S\\2627.91 Weight Measurement 2020-02-03 13:59:33 Built in Bedscale [...] Temperature 2020-02-03 13:57:29 37.1\\S\\98.8 Weight 2020-02-03 13:57:29 21472\\S\\2627.91 Weight Measurement 2020-02-03 13:57:29 Built in [employer] WEIGHT 2020-02-03 05:44:00 74.5 kg HEIGHT 2020-02-03 05:00:00 167.64 cm Respitory Rate 2014-07-22 20:45:00 [facility] [place] Heart Rate 2014-07-22 20:45:00 [facility] Systolic (mm Hg) 2014-07-22 20:45:00 [facility] Diastolic (mm Hg) 2014-07-22 20:45:00 [facility] Height 2014-07-22 17:53:00 167.64 cm [facility] Weight 2014-07-22 17:53:00 [facility] [place] BMI Calculated 2014-07-22 17:53:00 [facility] Respitory Rate 2014-07-22 17:53:00 [facility] [place] Temperature Oral (F) 2014-07-22 17:53:00 97.9 F [facility] Heart Rate 2014-07-22 17:53:00 [facility] [place] Systolic (mm Hg) 2014-07-22 17:53:00 Jack [facility] Diastolic (mm Hg) 2014-07-22 17:53:00 [facility] [place] Procedures Procedure Date / Time Performing Clinician Source Performed COMP. METABOLIC PANEL 2022-07-11 10:41:00 Ángel Murray [facility] ([id number]) Medical Branch CBC WITH DIFF 2022-07-11 10:41:00 Ángel Murray [facility] POCT GLUCOSE (AUTOMATED) 2022-07-11 09:26:00 Doctor Tracyigned, [facility] CONSENT/REFUSAL FOR 2022-07-11 04:57:15 Doctor Unassigned, [facility]REFUSAL FOR 2022-07-08 18:20:06 Doctor Unassigned, [facility] DIAG[facility]IS [facility] URINALYSIS 2022-07-05 13:22:00 Hilda Perez [facility] XR TIBIA FIBULA 2 VW 2022-07-05 13:16:57 Hilda Perez [facility] COMP. METABOLIC PANEL 2022-07-05 12:59:[address] [facility] ([id number]) [facility] US LOWER EXTREMITY VEIN 2022-07-05 12:47:00 Hilda Perez [facility] WITH COMPRESSION [facility] (ONLY FOR RULE OUT DVT) TROPONIN I 2022-07-05 11:49:00 Hilda Perez [facility] CBC WITH DIFF 2022-07-05 11:49:00 Hilda Perez [facility] N-TERMINAL PRO-BNP 2022-07-05 11:49:00 Hilda Perez [facility] US RENAL COMPLETE 2022-06-23 16:47:00 [facility] CBC W/PLT COUNT & AUTO 2022-06-23 05:27:00 Kendra [facility] DIFFERENTIAL [place] CBC W/PLT COUNT & AUTO 2022-06-23 05:27:00 Kendra [facility] DIFFERENTIAL [place] US ABDOMEN LIMITED 2022-06-22 16:17:00 Fabienne [facility] BASIC METABOLIC PANEL 2022-06-22 03:48:00 [facility] 20[facility]-06-22 03:48:00 Fabienne [facility] HEPATIC FUNCTION PANEL 2022-06-22 03:48:00 Jorge AbrahamKianna [facility] CBC W/PLT COUNT & AUTO 2022-06-22 03:48:00 [facility] DIFFERENTIAL Center PROTEIN ELECTROPHORESIS, 2022-06-22 03:48:00 [facility] IRON, TIBC, % SAT. 2022-06-22 03:48:00 [facility] [place] VITAMIN B12 2022-06-22 03:48:00 [facility] 2022-06-22 03:48:00 Fabienne [facility] HEPARIN ANTIBODY 2022-06-22 03:48:00 Fabienne [facility] LACTATE DEHYDROGENASE 2022-06-22 03:48:00 [facility] HAP[facility] 2022-06-22 03:48[facility]00 [facility] [place] RETICULOCYTE COUNT 2022-06-22 03:48:00 [facility] Kristy [place] SERUM IMMUNOTYPING 2022-06-22 03:48:00 Fabienne [facility] SEROTONIN RELEASE ASSAY 2022-06-22 03:48:00 Fabienne [facility] CBC W/PLT COUNT & AUTO 2022-06-22 03:48:00 [facility] DIFFERENTIAL Center URINE PROTEIN 2022-06-21 16:38:00 [facility] ELECTROPHORESIS, RANDOM Center SARS-COV2/RT-PCR ([facility] & 2022-06-21 11:14:00 Fabienne [facility] REF LABS) Center COMPREHENSIVE METABOLIC 2022-06-21 11:12:00 Fabienne [facility] PANEL Center PROTHROMBIN TIME/INR 2022-06-21 11:12:00 Fabienne [facility] CBC W/PLT COUNT & AUTO 2022-06-21 11:12:00 Shelbie AbrahamMarquisKianna [facility] DIFFERENTIAL Center CBC W/PLT COUNT & AUTO 2022-06-21 11:12:00 Fabienne Olga [facility] DIFFERENTIAL Center INSURANCE CORRESPONDENCE 2022-06-21 05:01:00 Doctor Unassigned, [facility] PHOSPHORUS 2022-06-07 09:16:00 [facility] MAGNESIUM 2022-06-07 09:16:00 [facility] BASIC METABOLIC PANEL 2022-06-07 09:16:00 Haley Jorge L [facility] (NA, K, CL, CO2, GLUCOSE, Faustino Medica l Branch BUN, CREATININE, CA) PHOSPHORUS 2022-06-05 11:13:00 [facility] [place] MAGNESIUM 2022-06-05 11:13:00 [facility] [place] BASIC METABOLIC PANEL 2022-06-05 11:13:00 [facility] (NA, K, CL, CO2, GLUCOSE, Rod, Juanpablo Medica [facility] Branch BUN, CREATININE, CA) [place] CBC WITH DIFF 2022-06-05 11:13:00 [facility] [place] PHOSPHORUS 2022-06-05 11:13:00 Prajapati [facility] [place] MAGNESIUM 2022-06-05 11:13:00 Prajapati [facility] [place] BASIC METABOLIC PANEL 2022-06-05 11:13:00 Prajapati [facility] (NA, K, CL, CO2, GLUCOSE, Rod, Juanpablo Medica [facility] BUN, CREATININE, CA) [place] CBC WITH DIFF 2022-06-05 11:13:00 [facility] Jose Antonio CT THORAX W CONTRAST 2022-06-05 01:36:13 [facility] 2022-06-05 01:36:13 [facility] ACTIVATED PARTIAL 2022-06-04 18:00:[address] [facility] ACTIVATED PARTIAL 2022-06-04 18:00:[address] [facility] ACTIVATED PARTIAL 2022-06-04 14:21:00 [facility] ACTIVATED PARTIAL 2022-06-04 14:21:00 [facility] XR KUB 2022-06-04 09:32:00 Dannie [facility] XR KUB 2022-06-04 09:32:00 Dannie [facility] XR KUB 2022-06-04 06:45:00 Dannie [facility] XR KUB 2022-06-04 06:45:00 Dannie [facility] HIT - AB 2022-06-04 06:14:00 Dannie [facility] EXTRA SST HOLD FOR FLUP 2022-06-04 06:14:00 Dannie [facility] HIT - AB 2022-06-04 06:14:00 Dannie [facility] EXTRA SST HOLD FOR FLUP 2022-06-04 06:14:00 Armando Pandey [facility] XR CHEST 1 VW 2022-06-04 05:23:00 Dannie [facility] XR CHEST 1 VW 2022-06-04 05:23:00 Dannie [facility] TROPONIN I 2022-06-04 04:51:00 Dannie [facility] HEPATIC FUNCTION PANEL 2022-06-04 04:51:00 [id number] (ALB,T.PRO,BILI Medical Branch T,BU/BC,ALT,AST,ALK PHOS) BASIC METABOLIC PANEL 2022-06-04 04:51:00 Dannie Armando [facility] (NA, K, CL, CO2, GLUCOSE, Medica l Branch BUN, CREATININE, CA) CBC WITH DIFF 2022-06-04 04:51:00 Armando Pandey [facility] ACTIVATED PARTIAL 2022-06-04 04:51:00 Andreea [facility] TROPONIN I 2022-06-04 04:51:00 Dannie [facility] HEPATIC FUNCTION PANEL 2022-06-04 04:51:[address] [facility] ([id number]) (ALB,T.PRO,BILI Medical Branch T,BU/BC,ALT,AST,ALK PHOS) BASIC METABOLIC PANEL 2022-06-04 04:51:00 Dannie Armando [facility] (NA, K, CL, CO2, GLUCOSE, Medica l Branch BUN, CREATININE, CA) CBC WITH DIFF 2022-06-04 04:51:00 Dannie Armando [facility] ACTIVATED PARTIAL 2022-06-04 04:51:00 Andreea [facility] HB ECG ROUTINE & RHYTHM 2022-06-04 04:43:15 Dannie [facility] HB ECG ROUTINE & RHYTHM 2022-06-04 04:43:15 Dannie [facility] ACTIVATED PARTIAL 2022-06-03 20:52:00 [facility] ACTIVATED PARTIAL 2022-06-03 20:52:00 [facility] FL TIME OR 2022-06-03 17:21:00 [facility] FL TIME OR 2022-06-03 17:21:00 [facility] ABG+COOX+NA+K+GLU+CA2+ 2022-06-03 16:52:00 Allan Lynch [facility] ABG+COOX+NA+K+GLU+CA2+ 2022-06-03 16:52:00 [facility] SURGICAL PATHOLOGY EXAM 2022-06-03 15:42:00 Lawrence Peterson [facility] ABG+COOX+NA+K+GLU+CA2+ 2022-06-03 15:36:00 Allan Lynch [facility] ABG+COOX+NA+K+GLU+CA2+ 2022-06-03 15:36:00 Allan Lynch [facility] HB ABO GROUPING 2022-06-03 13:05:00 Vishnu Zapien [facility] HB ABO GROUPING 2022-06-03 13:05:00 Vishnu Zapien [facility] INFERIOR VENA CAVA FILTER 2022-06-03 12:00:00 Lawrence Peterson [facility] VENOUS THROMBECTOMY 2022-06-03 12:00:00 Lawrence Peterson [facility] ANGIOPLASTY 2022-06-03 12:00:00 Lawrence Peterson [facility] VASCULAR STENTING 2022-06-03 12:00:00 Lawrence Peterson [facility] INFERIOR VENA CAVA FILTER 2022-06-03 12:00:00 Lawrence Peterson [facility] VENOUS THROMBECTOMY 2022-06-03 12:00:00 Lawrence Peterson [facility] ANGIOPLASTY 2022-06-03 12:00:00 Lawernce Peterson [facility] VASCULAR STENTING 2022-06-03 12:00:00 Lawrence Peterson [facility] PHOSPHORUS 2022-06-03 10:34:00 Prajapati [facility] [place] MAGNESIUM 2022-06-03 10:34:00 [facility] [place] BASIC METABOLIC PANEL 2022-06-03 10:34:00 Prajapatiricardo denny [facility] (NA, K, CL, CO2, GLUCOSE, Rod, [facility] BUN, CREATININE, CA) [place] CBC WITH DIFF 2022-06-03 10:34:00 [facility] [place] ACTIVATED PARTIAL 2022-06-03 10:34:00 Andreea [facility] PHOSPHORUS 2022-06-03 10:34:00 Prajapati [facility] [place] MAGNESIUM 2022-06-03 10:34:00 Prajapati [facility] [place] BASIC METABOLIC PANEL 2022-06-03 10:34:00 [facility] (NA, K, CL, CO2, GLUCOSE, Rod, [facility] BUN, CREATININE, CA) [place] CBC WITH DIFF 2022-06-03 10:34:00 [facility] [place] ACTIVATED PARTIAL 2022-06-03 10:34:00 Andreea [facility] ACTIVATED PARTIAL 2022-06-02 22:26:00 [facility] ACTIVATED PARTIAL 2022-06-02 22:26:00 [facility] ACTIVATED PARTIAL 2022-06-02 15:46:00 Andreea [facility] ACTIVATED PARTIAL 2022-06-02 15:46:00 Andreea [facility] PHOSPHORUS 2022-06-02 10:27:00 [facility] [place] MAGNESIUM 2022-06-02 10:27:00 [facility] [place] BASIC METABOLIC PANEL 2022-06-02 10:27:00 [facility] (NA, K, CL, CO2, GLUCOSE, Rod, [facility] BUN, CREATININE, CA) [place] CBC WITH DIFF 2022-06-02 10:27:00 Prajapati [facility] [place] PHOSPHORUS 2022-06-02 10:27:00 Prajapati [facility] [place] MAGNESIUM 2022-06-02 10:27:00 Prajapati [facility] [place] BASIC METABOLIC PANEL 2022-06-02 10:27:00 Prajapati [facility] (NA, K, CL, CO2, GLUCOSE, Rod, [facility] BUN, CREATININE, CA) [place] CBC WITH DIFF 2022-06-02 10:27:00 [facility] [place] PHOSPHORUS 2022-06-01 10:05:00 Prajapati [facility] [place] MAGNESIUM 2022-06-01 10:05:00 Prajapati [facility] [place] BASIC METABOLIC PANEL 2022-06-01 10:05:00 Prajapati [facility] (NA, K, CL, CO2, GLUCOSE, Rod, [facility] BUN, CREATININE, CA) [place] CBC WITH DIFF 2022-06-01 10:05:00 Prajapati [facility] [place] PHOSPHORUS 2022-06-01 10:05:00 Prajapati [facility] [place] MAGNESIUM 2022-06-01 10:05:00 Prajapati [facility] [place] BASIC METABOLIC PANEL 2022-06-01 10:05:00 Prajapati [facility] (NA, K, CL, CO2, GLUCOSE, Rod, [facility] BUN, CREATININE, CA) [place] CBC WITH DIFF 2022-06-01 10:05:[address] [facility] Jose Antonio PHOSPHORUS 2022-05-31 11:01:00 [facility] Antonio MAGNESIUM 2022-05-31 11:01:[address] [facility] Jose Antonio BASIC METABOLIC PANEL 2022-05-31 11:01:00 [facility] (NA, K, CL, CO2, GLUCOSE, Rod, Juanpablo Medica l Branch BUN, CREATININE, CA) Jose Antonio CBC WITH DIFF 2022-05-31 11:01:[address] [facility] Jose Antonio PROTHROMBIN TIME / INR 2022-05-31 11:01:[address] [facility] ACTIVATED PARTIAL 2022-05-31 11:01:00 Juanpablo [facility] FIBRINOGEN 2022-05-31 11:01:00 Ryley Polo [facility] PHOSPHORUS 2022-05-31 11:01:00 [facility] Antonio MAGNESIUM 2022-05-31 11:01:00 [facility] Antonio BASIC METABOLIC PANEL 2022-05-31 11:01:00 [facility] (NA, K, CL, CO2, GLUCOSE, Rod, Juanpablo Medica l Branch BUN, CREATININE, CA) Jose Antonio CBC WITH DIFF 2022-05-31 11:01:[address] [facility] Jose Antonio PROTHROMBIN TIME / INR 2022-05-31 11:01:[address] [facility] ACTIVATED PARTIAL 2022-05-31 11:01:00 Juanpablo Salmon [facility] FIBRINOGEN 2022-05-31 11:01:00 Ryley Polo [facility] PHOSPHORUS 2022-05-31 11:01:00 [facility] MAGNESIUM 2022-05-31 11:01:[address] [facility] Jose Antonio BASIC METABOLIC PANEL 2022-05-31 11:01:00 [facility] (NA, K, CL, CO2, GLUCOSE, Rod, Juanpablo Medica Branch BUN, CREATININE, CA) Jose Antonio CBC WITH DIFF 2022-05-31 11:01:[address] [facility] Jose Antonio PROTHROMBIN TIME / INR 2022-05-31 11:01:00 Maurice Gutierrez [facility] ACTIVATED PARTIAL 2022-05-31 11:01:[address] [facility] THRLAS [facility] FIBRINOGEN 2022-05-31 11:01:00 [facility] FL TIME OR 2022-05-31 04:56:00 [facility] (NON-REPORTABLE) [facility] FL TIME OR 2022-05-31 04:56:00 [facility] (NON-REPORTABLE) [facility] FL TIME OR 2022-05-31 04:56:00 [facility] (NON-REPORTABLE) [facility] FIBRINOGEN 2022-05-31 01:26:00 [facility] FIBRINOGEN 2022-05-31 01:26:00 [facility] FIBRINOGEN 2022-05-31 01:26:00 [facility] VENOGRAM 2022-05-31 01:17:00 [facility] VENOGRAM 2022-05-31 01:17:00 Cris [facility] FIBRINOGEN 2022-05-30 21:47:00 [facility] FIBRINOGEN 2022-05-30 21:47:00 [facility] FIBRINOGEN 2022-05-30 21:47:00 [facility] FIBRINOGEN 2022-05-30 18:14:00 [facility] FIBRINOGEN 2022-05-30 18:14:00 [facility] FIBRINOGEN 2022-05-30 18:14:00 [facility] FIBRINOGEN 2022-05-30 18:14:00 [facility] FIBRINOGEN 2022-05-30 15:21:00 [facility] FIBRINOGEN 2022-05-30 15:21:00 [facility] FIBRINOGEN 2022-05-30 15:21:00 [facility] FIBRINOGEN 2022-05-30 15:21:00 [facility] FIBRINOGEN 2022-05-30 13:12:00 [facility] FIBRINOGEN 2022-05-30 13:12:00 [facility] FIBRINOGEN 2022-05-30 13:12:00 [facility] FIBRINOGEN 2022-05-30 13:12:00 [facility] FIBRINOGEN 2022-05-30 11:13:00 [facility] FIBRINOGEN 2022-05-30 11:13:00 [facility] FIBRINOGEN 2022-05-30 11:13:00 [facility] FIBRINOGEN 2022-05-30 11:13:00 [facility] PHOSPHORUS 2022-05-30 09:27:00 [facility] MAGNESIUM 2022-05-30 09:27:00 [facility] BASIC METABOLIC PANEL 2022-05-30 09:27:00 Christ [facility] (NA, K, CL, CO2, GLUCOSE, Medica l Branch BUN, CREATININE, CA) CBC WITH DIFF 2022-05-30 09:27:00 [facility] ACTIVATED PARTIAL 2022-05-30 09:27:00 [facility]22-05-30 09:27:00 [facility] PHOSPHORUS 2022-05-30 09:27:00 [facility] MAGNESIUM 2022-05-30 09:27:00 [facility] BASIC METABOLIC PANEL 2022-05-30 09:27:00 [facility] (NA, K, CL, CO2, GLUCOSE, Medica l Branch BUN, CREATININE, CA) CBC WITH DIFF 2022-05-30 09:27:00 [facility] ACTIVATED PARTIAL 2022-05-30 09:27:00 [facility] FIBRINOGEN 2022-05-30 09:27:00 [facility] PHOSPHORUS 2022-05-30 09:27:00 [facility] MAGNESIUM 2022-05-30 09:27:00 [facility] BASIC METABOLIC PANEL 2022-05-30 09:27:00 [facility] (NA, K, CL, CO2, GLUCOSE, Medica l Branch BUN, CREATININE, CA) CBC WITH DIFF 2022-05-30 09:27:00 [facility] ACTIVATED PARTIAL 2022-05-30 09:27:00 [facility] FIBRINOGEN 2022-05-30 09:27:00 [facility] PHOSPHORUS 2022-05-30 09:27:00 [facility] MAGNESIUM 2022-05-30 09:27:00 [facility] BASIC METABOLIC PANEL 2022-05-30 09:27:00 [facility] (NA, K, CL, CO2, GLUCOSE, Medica l Branch BUN, CREATININE, CA) CBC WITH DIFF 2022-05-30 09:27:00 [facility] ACTIVATED PARTIAL 2022-05-30 09:27:00 [facility] FIBRINOGEN 2022-05-30 09:27:00 [facility] FIBRINOGEN 2022-05-30 06:58:00 [facility] FIBRINOGEN 2022-05-30 06:58:00 [facility] FIBRINOGEN 2022-05-30 06:58:00 [facility] FIBRINOGEN 2022-05-30 06:58:00 [facility] ACTIVATED PARTIAL 2022-05-30 06:13:00 [facility] ACTIVATED PARTIAL 2022-05-30 06:13:00 [facility] ACTIVATED PARTIAL 2022-05-30 06:13:00 [facility] ACTIVATED PARTIAL 2022-05-30 06:13:00 [facility] FIBRINOGEN 2022-05-30 04:43:[facility]-30 04:43[facility] 2022-05-30 04:43:00 [facility] 2022-05-30 04:43:00 [facility] 2022-05-29 23:24:00 [facility] FIBRINOGEN 2022-05-29 23:24:00 [facility] FIBRINOGEN 2022-05-29 23:24:00 [facility] FIBRINOGEN 2022-05-29 23:24:00 [facility] FIBRINOGEN 2022-05-29 21:10:00 [facility] FIBRINOGEN 2022-05-29 21:10:00 [facility] FIBRINOGEN 2022-05-29 21:10:00 [facility] FIBRINOGEN 2022-05-29 21:10:00 [facility] BASIC METABOLIC PANEL 2022-05-29 14:55:00 Armando Pandey [facility] (NA, K, CL, CO2, GLUCOSE, Medica l Branch BUN, CREATININE, CA) CBC WITH DIFF 2022-05-29 14:55:00 Armando Pandey [facility] FIBRINOGEN 2022-05-29 14:55:00 [facility] BASIC METABOLIC PANEL 2022-05-29 14:55:00 Dannie Armando [facility] [place] (NA, K, CL, CO2, GLUCOSE, Medica l Branch BUN, CREATININE, CA) CBC WITH DIFF 2022-05-29 14:55:00 [facility] 2022-05-29 14:55:00 [facility] BASIC METABOLIC PANEL 2022-05-29 14:55:00 Dannie Armando [facility] (NA, K, CL, CO2, GLUCOSE, Medica l Branch BUN, CREATININE, CA) CBC WITH DIFF 2022-05-29 14:55:00 [facility] 2022-05-29 14:55:00 [facility] BASIC METABOLIC PANEL 2022-05-29 14:55:00 Dannie Armando [facility] [place] (NA, K, CL, CO2, GLUCOSE, Medica l Branch BUN, CREATININE, CA) CBC WITH DIFF 2022-05-29 14:55:[address] [facility] FIBRINOGEN 2022-05-29 14:55:00 Cris [facility] FL TIME OR 2022-05-29 14:03:[address] [facility] (NON-REPORTABLE) [facility] [place] TIME OR 2022-05-29 14:03:00 Haley [facility] (NON-REPORTABLE) [facility] FL TIME OR 2022-05-29 14:03:00 Haley [facility] (NON-REPORTABLE) [facility] FL TIME OR 2022-05-29 14:03:00 Haley [facility] (NON-REPORTABLE) [facility] VENOUS THROMBOLYSIS 2022-05-29 12:05:00 Cris [facility] VENOUS THROMBOLYSIS 2022-05-29 12:05:00 Cris [facility] MAGNESIUM 2022-05-29 11:11:00 Reyna [facility] BASIC METABOLIC PANEL 2022-05-29 11:11:00 Amber Orellana [facility] (NA, K, CL, CO2, GLUCOSE, Medica l Branch BUN, CREATININE, CA) CBC WITHOUT DIFF 2022-05-29 11:11:00 Reyna [facility] ACTIVATED PARTIAL 2022-05-29 11:11:00 [facility] 2022-05-29 11:11:00 Reyna [facility] BASIC METABOLIC PANEL 2022-05-29 11:11:00 Reyna [facility] (NA, K, CL, CO2, GLUCOSE, Medica l Branch BUN, CREATININE, CA) CBC WITHOUT DIFF 2022-05-29 11:11:00 Reyna [facility] ACTIVATED PARTIAL 2022-05-29 11:11:00 Reyna [facility] MAGNESIUM 2022-05-29 11:11:00 [facility] MET[facility]OLIC PANEL 2022-05-29 11:11:00 Reyna [facility] (NA, K, CL, CO2, GLUCOSE, Medica l Branch BUN, CREATININE, CA) CBC WITHOUT DIFF 2022-05-29 11:11:00 [facility] 2022-05-29 11:11:00 [facility]UM 2022-05-29 11:11:00 Reyna [facility] BASIC METABOLIC PANEL 2022-05-29 11:11:00 Reyna [facility] (NA, K, CL, CO2, GLUCOSE, Medica l Branch BUN, CREATININE, CA) CBC WITHOUT DIFF 2022-05-29 11:11:00 [facility] 2022-05-29 11:11:00 [facility] AB[facility]H CONFIRMATION (LAB 2022-05-28 23:34:00 Val [facility] ONLY) Medical Branch ABORH CONFIRMATION (LAB 2022-05-28 23:34:00 Val [facility] ONLY) Medical Branch ABORH CONFIRMATION (LAB 2022-05-28 23:34:00 Val [facility] ONLY) Medical Branch ABORH CONFIRMATION (LAB 2022-05-28 23:34:00 Val [facility] ONLY) Medical Branch HB ABO GROUPING 2022-05-28 23:00:00 [facility] HB ABO GROUPING 2022-05-28 23:00:00 [facility] HB ABO GROUPING 2022-05-28 23:00:00 [facility] HB ABO GROUPING 2022-05-28 23:00:00 [facility] ACTIVATED PARTIAL 2022-05-28 22:59:00 Reyna [facility] ACTIVATED PARTIAL 2022-05-28 22:59:00 [facility] 2022-05-28 22:59:00 [facility] 2022-05-28 22:59:00 [facility] PROT[facility] / INR 2022-05-28 17:23:00 Amber Orellana [facility] ACTIVATED PARTIAL 2022-05-28 17:23:00 [facility] PR[facility] / INR 2022-05-28 17:23:00 Amber Orellana [facility] ACTIVATED PARTIAL 2022-05-28 17:23:00 [facility] PROT[facility]OM[facility] TIME / INR 2022-05-28 17:23:00 Amber Orellana [facility] ACTIVATED PARTIAL 2022-05-28 17:23:00 [facility] PROT[facility]OM[facility] / INR 2022-05-28 17:23:00 Amber Orellana [facility] ACTIVATED PARTIAL 2022-05-28 17:23:00 [facility] BASIC METABOLIC PANEL 2022-05-28 09:09:00 [facility] (NA, K, CL, CO2, GLUCOSE, Medica l Branch BUN, CREATININE, CA) CBC WITH DIFF 2022-05-28 09:09:00 Romario Friedman [facility] FACTOR 5 LEIDEN 2022-05-28 09:09:00 Joe Vitalessica [facility] FACTOR 2 [id number] MUTATION 2022-05-28 09:09:00 Liseth Vitale [facility] F5 LEIDEN AND F2 [id number] 2022-05-28 09:09:00 Liseth Vitale [facility] BASIC METABOLIC PANEL 2022-05-28 09:09:00 Romario Friedman [facility] (NA, K, CL, CO2, GLUCOSE, Medica l Branch BUN, CREATININE, CA) CBC WITH DIFF 2022-05-28 09:09:00 Romario Friedman [facility] FACTOR 5 LEIDEN 2022-05-28 09:09:00 Winifred [facility] FACTOR 2 [id number] MUTATION 2022-05-28 09:09:00 Liseth [facility]ale [facility] F5 LEIDEN AND F2 [id number] 2022-05-28 09:09:00 Liseth Vitale [facility] BASIC METABOLIC PANEL 2022-05-28 09:09:00 [facility] (NA, K, CL, CO2, GLUCOSE, Medica l Branch BUN, CREATININE, CA) CBC WITH DIFF 2022-05-28 09:09:00 Romario Friedman [facility] FACTOR 5 LEIDEN 2022-05-28 09:09:00 Winifred [facility] FACTOR 2 [id number] MUTATION 2022-05-28 09:09:00 [facility] AND F2 [id number] 2022-05-28 09:09:00 Liseth Vitale [facility] BASIC METABOLIC PANEL 2022-05-28 09:09:00 Romario Friedman [facility] (NA, K, CL, CO2, GLUCOSE, Medica l Branch BUN, CREATININE, CA) CBC WITH DIFF 2022-05-28 09:09:00 Romario Friedman [facility] FACTOR 5 LEIDEN 2022-05-28 09:09:00 Winifred [facility] FACTOR 2 [id number] MUTATION 2022-05-28 09:09:00 [facility] F5 LEIDEN AND F2 [id number] 2022-05-28 09:09:00 Liseth Vitale [facility] TRANSTHORACIC ECHO (TTE) 2022-05-27 15:47:00 Romario Friedman [facility] COMPLETE W/ CONTRAST [facility] TRANSTHORACIC ECHO (TTE) 2022-05-27 15:47:00 Romario Friedman [facility] COMPLETE W/ CONTRAST [facility] TRANSTHORACIC ECHO (TTE) 2022-05-27 15:47:00 Romario Friedman [facility] COMPLETE W/ CONTRAST [facility] TRANSTHORACIC ECHO (TTE) 2022-05-27 15:47:00 Romario Friedman [facility] COMPLETE W/ CONTRAST [facility] CT ABDOMEN PELVIS W 2022-05-27 11:28:06 [facility] CT ABDOMEN PELVIS W 2022-05-27 11:28:06 Edionwe, [facility] CONTRAST Medical Branch CT ABDOMEN PELVIS W 2022-05-27 11:28:06 Edionwe, [facility] CONTRAST Medical [facility] ABDOMEN PELVIS W 2022-05-27 11:28:06 Edionwe, [facility] CONTRAST Medical [facility] BASIC METABOLIC PANEL 2022-05-27 09:45:00 [facility] ([facility], K, CL, CO2, GLUCOSE, Medica l Branch BUN, CREATININE, CA) CBC WITH DIFF 2022-05-27 09:45:00 [facility] GLYC[facility]IN 2022-05-27 09:45:00 [facility] Medical [facility] BASIC METABOLIC PANEL 2022-05-27 09:45:00 [facility] (NA, K, CL, CO2, GLUCOSE, Medica l Branch BUN, CREATININE, CA) CBC WITH DIFF 2022-05-27 09:45:00 [facility] GLYCOSYLATED HEMOGLOBIN 2022-05-27 09:45:00 Winifred [facility] (A1C) Medical [facility] BASIC METABOLIC PANEL 2022-05-27 09:45:00 [facility] (NA, K, CL, CO2, GLUCOSE, Medica l Branch BUN, CREATININE, CA) CBC WITH DIFF 2022-05-27 09:45:00 Edionwe, [facility] GLYCOSYLATED HEMOGLOBIN 2022-05-27 09:45:00 [facility] BASIC METABOLIC PANEL 2022-05-27 09:45:00 Madelin [facility] (NA, K, CL, CO2, GLUCOSE, Medica l Branch BUN, CREATININE, CA) CBC WITH DIFF 2022-05-27 09:45:00 [facility] GLYCOSYLATED HEMOGLOBIN 2022-05-27 09:45:00 [facility] DUPLEX VENOUS LEGS 2022-05-27 01:08:52 Meche Zapata [facility] BILATERAL - BY VASCULAR [facility] LAB DUPLEX VENOUS LEGS 2022-05-27 01:08:52 Meche Zapata [facility] BILATERAL - BY VASCULAR [facility] DUPLEX VENOUS LEGS 2022-05-27 01:08:52 Meche Zapata [facility] BILATERAL - BY VASCULAR [facility] DUPLEX VENOUS LEGS 2022-05-27 01:08:52 Meche Zapata [facility] BILATERAL - BY VASCULAR [facility] URINE DRUG (IMMUNOASSAY) 2022-05-26 22:13:00 Ondina Yusuf [facility] SCREEN URINALYSIS 2022-05-26 22:13:00 Meche Zapata [facility] URINE DRUG (IMMUNOASSAY) 2022-05-26 22:13:00 Ondina Yusuf [facility] SCREEN URINALYSIS 2022-05-26 22:13:00 Meche Zapata [facility] URINE DRUG (IMMUNOASSAY) 2022-05-26 22:13:00 Ondina Yusuf [facility] SCREEN URINALYSIS 2022-05-26 22:13:00 Meche Zapata [facility] URINE DRUG (IMMUNOASSAY) 2022-05-26 22:13:00 Ondina Yusuf [facility] SCREEN URINALYSIS 2022-05-26 22:13:00 Meche Zapata [facility] HB ECG ROUTINE & RHYTHM 2022-05-26 21:43:55 Meche Zapata [facility] [place] HB ECG ROUTINE & RHYTHM 2022-05-26 21:43:55 Meche Zapata [facility] [place] HB ECG ROUTINE & RHYTHM 2022-05-26 21:43:55 Meche Zapata [facility] [place] HB ECG ROUTINE & RHYTHM 2022-05-26 21:43:55 Meche Zapata [facility] [place] XR CHEST 1 VW 2022-05-26 21:37:08 Meche Zapata [facility] XR CHEST 1 2022-05-26 21:37:08 Meche Zapata [facility] XR CHEST 1 2022-05-26 21:37:08 Meche Zapata [facility] XR CHEST 1 2022-05-26 21:37:08 Meche Zapata [facility] MAGNESIUM 2022-05-26 21:20:00 Meche Zapata [facility] TROPONIN I 2022-05-26 21:20:00 Meche Zapata [facility] COMP. METABOLIC PANEL 2022-05-26 21:20:00 Meche Zapata [facility] ([id number]) [facility] CBC WITH DIFF 2022-05-26 21:20:00 Meche Zapata [facility] N-TERMINAL PRO-BNP 2022-05-26 21:20:00 Meche Zapata [facility] MAGNESIUM 2022-05-26 21:20:00 Meche Zapata [facility] TROPONIN I 2022-05-26 21:20:00 Meche Zapata [facility] COMP. METABOLIC PANEL 2022-05-26 21:20:00 Meche Zapata [facility] ([id number]) [facility] CBC WITH DIFF 2022-05-26 21:20:00 Meche Zapata [facility] N-TERMINAL PRO-BNP 2022-05-26 21:20:00 Meche Zapata [facility] MAGNESIUM 2022-05-26 21:20:00 Meche Zapata [facility] TROPONIN I 2022-05-26 21:20:00 Meche Zapata [facility] COMP. METABOLIC PANEL 2022-05-26 21:20:00 Meche Zapata [facility] ([id number]) [facility] CBC WITH DIFF 2022-05-26 21:20:00 Meche Zapata [facility] N-TERMINAL PRO-BNP 2022-05-26 21:20:00 Meche Zapata [facility] MAGNESIUM 2022-05-26 21:20:00 Meche Zapata [facility] TROPONIN I 2022-05-26 21:20:00 Meche Zapata [facility] COMP. METABOLIC PANEL 2022-05-26 21:20:00 Meche Zapata [facility] ([id number]) [facility] CBC WITH DIFF 2022-05-26 21:20:00 Mehce Zapata [facility] N-TERMINAL PRO-BNP 2022-05-26 21:20:00 Meche Zapata [facility] HOSPITAL ADMISSION 2022-05-26 05:01:00 Doctor Unassigned, [facility] Name [facility] HOSPITAL ADMISSION 2022-05-26 05:01:00 Doctor Unassigned, [facility] Name [facility] HOSPITAL ADMISSION 2022-05-26 05:01:00 Doctor Unamindaigned, [facility] Name [facility] XR LUMBAR SPINE 3 VW 2022-05-23 09:47:55 Carlos [facility] DISCLOSURE AND CONSENT, 2022-05-19 05:01:00 [facility] PROCEDURES PATIENT QUESTIONNAIRE 2022-05-17 05:01:00 Doctor Unassigned, [facility] INSURANCE CORRESPONDENCE 2022-05-16 05:01:00 Doctor Unassigned, [facility] INSURANCE CORRESPONDENCE 2022-05-04 05:01:00 Doctor Tracyssigned, [facility] DME/SUPPLY JUSTIFICATION 2022-04-22 06:01:00 Doctor Tracyssigned, [facility] PATIENT FINANCIAL 2022-04-13 15:27:54 Doctor Unassigned, Un [facility] POLICY [facility] SLEEP STUDY DATA REPORT 2022-04-02 06:01:00 Doctor Sergo, [facility] XR HIPS 2 VW RIGHT 2022-03-24 14:56:12 Susan Manjarrez [facility] MR LUMBAR SPINE WO 2022-03-24 14:41:33 Delroy Farah [facility] INSURANCE CORRESPONDENCE 2022-02-15 06:01:00 Doctor Sergo, [facility] EXTERNAL PROVIDER RECORDS 2022-02-03 06:01:00 Doctor Sergo, [facility] REFERRAL- 2022-01-17 06:01:00 Doctor Sergo, [facility] REQUEST/RESPONSE [facility] ASSIGNMENT OF BENEFITS 2021-12-08 15:11:38 Doctor Sergo, [facility] SLEEP STUDY DATA REPORT 2021-11-04 05:01:00 Doctor Sergo, [facility] Plan of Care Planned Activity Planned Date Details Comments Source Future Scheduled 2022-10-[address] [facility] Test 00:00:00 (Season Ended) [code = Medic al Center INFLUENZA VACCINE (Season Ended)] Future Scheduled 2022-10-[address] [facility] Test 00:00:00 (Season Ended) [code = Medic al Center INFLUENZA VACCINE (Season Ended)] Future Scheduled 2022-07-10 COVID-19 VACCINE (#1) [facility] Test 23:57:37 [code = COVID-19 VACCINE (#1)] Future Scheduled 2022-07-10 Hepatitis C screening [facility] Test 23:57:37 (procedure) [code = 645836768] Future Scheduled 2022-07-10 [facility]:57:37 [code = COLONOSCOPY SCREENING] Future Scheduled 2022-07-10 SHINGLES VACCINES (1 [facility] 23:57:37 of 2) [code = SHINGLES VACCINES (1 of 2)] Future Scheduled 2022-07-10 [facility] 23:57:37 [code = INFLUENZA VACCINE] Future Scheduled 2022-07-03 COVID-19 VACCINE (#1) [facility] 23:24:31 [code = COVID-19 VACCINE (#1)] Future Scheduled 2022-07-03 [facility] 23:24:31 (procedure) [code = 796812899] Future Scheduled 2022-07-03 [facility]CREENING [facility] 20:48:55 (procedure) [code = [id number]] Future Scheduled 2022-05-18 [facility] 20:48:55 [code = COLONOSCOPY SCREENING] Future Scheduled 2022-05-18 [facility]INGLES [facility]ACCINES ([facility] 20:48:55 of 2) [code = SHINGLES VACCINES (1 of 2)] Future Scheduled 2022-05-18 [facility]ACCINE [facility]:55 [code = INFLUENZA VACCINE] Future Scheduled 2022-05-18 COVID-19 [facility]ACCINE (#[facility]) [facility]55 [code = COVID-19 VACCINE (#1)] Future Scheduled 2022-05-18 Hepatitis C screening [facility] 20:48:55 (procedure) [code = 492540830] Future Scheduled 2022-05-18 COLONOSCOPY SCREENING [facility] [...] Medicare IPPE (WELCOME TO MEDICARE)] Future Scheduled 2022-02-13 Medicare IPPE (WELCOME [facility] TO MEDICARE) [code = Medical Center Medicare IPPE (WELCOME TO MEDICARE)] Future Scheduled 2021-10-15 [facility]PATIT[facility] B [facility]ACC[facility] 19:26:49 (1 of 3 - 3-dose series) [code = HEPATITIS B VACCINES (1 of 3 - 3-dose series)] Future Scheduled 2021-10-15 COVID-19 VACCINE (#1) [facility] 19:26:49 [code = COVID-19 VACCINE (#1)] Future Scheduled 2021-10-15 [facility] C [facility] 19:26:49 (procedure) [code = 315809165] Future Scheduled 2021-10-15 [facility]ENING [facility] 19:26:49 [code = COLONOSCOPY SCREENING] Future Scheduled 2021-10-15 SHINGLES VACCINES (1 [facility] 19:26:49 of 2) [code = SHINGLES VACCINES (1 of 2)] Future Scheduled 2021-10-15 [facility]ZA [facility]ACCINE [facility] 19:26:49 [code = INFLUENZA VACCINE] Future Scheduled 2021-10-12 HEPATITIS B VACCINES [facility] 17:47:43 (1 of 3 - 3-dose series) [code = HEPATITIS B VACCINES (1 of 3 - 3-dose series)] Future Scheduled 2021-10-12 COVID-19 VACCINE (#1) [facility] 17:47:43 [code = COVID-19 VACCINE (#1)] Future Scheduled 2021-10-12 [facility] C [facility] 17:47:43 (procedure) [code = 244295767] Future Scheduled 2021-10-12 COLONOSCOPY SCREENING [facility] Test 17:47:43 [code = COLONOSCOPY SCREENING] Future Scheduled 2021-10-12 SHINGLES VACCINES (1 Met [facility] Test 17:47:43 of 2) [code = SHINGLES VACCINES (1 of 2)] Future Scheduled 2021-10-12 INFLUENZA VACCINE [facility] Test 17:47:43 [code = INFLUENZA VACCINE] Future Scheduled 2012 SHINGLES VACCINES ([address] [facility] Test 00:00:00 of 2) [code = SHINGLES Medic al Center VACCINES (1 of 2)] Future Scheduled 2012 SHINGLES VACCINES ([address] [facility] Test 00:00:00 of 2) [code = SHINGLES Medic al Center VACCINES (1 of 2)] Future Scheduled [address] [facility] 00:[facility]:00 (procedure) [code = [facility] 80020882] Future Scheduled [address] [facility] 00:00:00 (procedure) [code = [facility] 65307385] Future Scheduled 1981 DTAP/TDAP/TD [facility]ACCINES [facility]00 (1 - Tdap) [code = Medical C enter DTAP/TDAP/TD VACCINES (1 - Tdap)] Future Scheduled 1981 DTAP/TDAP/TD [facility]ACCINES [facility] 00:00:00 (1 - Tdap) [code = Medical C enter DTAP/TDAP/TD VACCINES (1 - Tdap)] Future Scheduled 1980 HE[facility]ITIS C [facility]CRE[facility]ING [facility] [code = HEPATITIS C Medical Center SCREENING] Future Scheduled 1980 HE[facility]ITIS C [facility] [code = HEPATITIS C Medical Center SCREENING] Future Scheduled [address] [facility] Test 00:00:00 Counseling and Medical Cente r Screening (12+) [code = Tobacco Cessation Counseling and Screening (12+)] Future Scheduled [address] [facility] Test 00:00:00 Counseling and Medical Cente r Screening (12+) [code = Tobacco Cessation Counseling and Screening (12+)] Future Scheduled 1963-06-28 COVID-19 VACCINE (#1) [facility]00 [code = COVID-[address] VACCINE (#1)] Future Scheduled 1963-06-28 COVID-19 VACCINE (#1[facility]00 [code = COVID-[address] VACCINE (#1)] Future Scheduled [address] [facility] 00:00:00 (combo) [code = CT Medical C enter Colonography (combo)] Future Scheduled [address] [facility] 00:[facility]00 malignant neoplasm of Medica l Center colon (procedure) [code = 701998318] Future Scheduled [address] [facility] Test 00:00:00 malignant neoplasm of [facility]ica [facility] Center colon (procedure) [code = 101541465] Future Scheduled [address] [facility] Test 00:00:00 malignant neoplasm of [facility]ica [facility] Center colon (procedure) [code = 695923601] Future Scheduled [address] [facility] 00:00:00 malignant neoplasm of Medica l Center colon (procedure) [code = 935884748] Future Scheduled 1962 Sigmoidoscopy [facility]code [facility]oscopy] Medical Cente r Future Scheduled [address] [facility] 00:00:00 (combo) [code = CT Medical C enter Colonography (combo)] Future Scheduled [address] [facility] Test 00:00:00 malignant neoplasm of Medica l Center colon (procedure) [code = 620079750] Future Scheduled [address] [facility] Test 00:00:00 malignant neoplasm of Medica l Center colon (procedure) [code = 535001931] Future Scheduled [address] [facility] Test 00:00:00 malignant neoplasm of Medica l Center colon (procedure) [code = 259114625] Future Scheduled [address] [facility] Test 00:00:00 malignant neoplasm of Medica l Center colon (procedure) [code = 106675160] Future Scheduled 1962 Sigmoidoscopy [facility] S[facility]oidoscopy] Medical John r Encounters Start End Encounter Admission Attending Care Care Encounter Source Date/Time Date/Time Type Type Clinicians Facility Department ID 2022-06-11 Outpatient 3 [id number] [facility] PM [facility] 03:48:38 [facility] [facility] 2022-06-10 Outpatient 3 [id number] ENC[facility] PM [facility] 02:10:29 04[facility] [place] 2022-06-09 Outpatient 3 [id number] ENCPL PM [facility] 10:37:19 0427 [facility] [place] 2022-06-[address] [facility] TIFFANY [id number] Univers 14:27:32 IZABELA PHAM [facility] 2022-06-01 Outpatient 3 [id number] ENCPL REF [facility] 12:13:29 0419 [facility] [place] 2020-12-14 Emergency [facility] [id number] Univers 03:38:20 ity [facility] 2020-12-14 Emergency [facility] [id number] Univers 02:28:47 ity [facility] 2020-12-14 Emergency [facility] [id number] Univers 02:03:46 ity [facility] 2020-12-13 Emergency [facility] [id number] Univers 15:19:05 [facility] 2020-02-02 Inpatient [facility] [id number] [facility] 19:02:00 2020-02-02 Inpatient [facility] [id number] [facility] 19:02:00 2022-09-15 2022-09-15 Outpatient R LAWRENCE PETERSON [facility] [id number] Univers 10:00:00 10:00:00 LAWRENCE PETERSON [facility] 2022-08-03 2022-08-03 Outpatient R JERRICA [facility] [id number] Univers 10:15:00 10:15:00 ROBINA [facility] 2022-07-11 2022-07-11 [facility] E[facility] [id number] Univers 10:09:00 11:10:00 ANA ity of [facility] 2022-07-11 2022-07-11 Emergency Jayes, TRAUMA 1.2.323.535 [id number] Univers 10:09:00 11:10:00 Ana Marina CENTER 350.1.13.10 [place] [id number] [address] 2022-07-11 2022-07-11 Emergency [facility] E[facility] [id number] Univers 04:26:00 07:38:00 RAMANA ity of [facility] 2022-07-11 2022-07-11 Emergency Morrical, Ángel O TRAUMA 1.2. 840.114 [id number] Univers 04:26:00 07:38:00 Ramana Cruzh CENTER 350.1.13 .10 [place] [id number] [address] 2022-07-11 2022-07-11 Emergency X [facility] ERT [id number] Univers 00:22:00 00:26:00 ity of [facility] 2022-07-11 2022-07-11 Emergency [facility] 1.2.924.977 [id number] Univers 00:22:00 00:26:00 [facility] 350.1.13.10 i ty of [place].2.[place] [phone] [facility] [address] 2022-07-08 2022-07-08 Emergency X [facility] ERT [id number] Univers 13:26:00 13:45:00 ity of [facility] 2022-07-08 2022-07-08 Emergency TRAUMA 1.2.886.847 [id number] Univers 13:26:00 13:45:00 CENTER 350.1.13.10 [place] [id number] [address] 2022-07-05 2022-07-05 Outpatient R JERRICA [facility] [id number] Univers 14:30:00 14:30:00 ROBINA [facility] 2022-07-05 2022-07-05 Outpatient R JERRICA [facility] [id number] Univers 14:30:00 14:30:00 ROBINA [facility] 2022-07-05 2022-07-05 Emergency X AMOS [facility] ERT [id number] Univers 05:53:00 11:12:00 TRACEY [facility] 2022-07-05 2022-07-05 Emergency Hilda Perez TRAU[place] 1.2.840 .114 [id number] Univers 05:53:00 11:12:00 Amos Tracey YONKERS 350.1.13.10 [place] [id number] [facility] [address] [facility] 2022-07-04 2022-07-04 Emergency [facility] 1.2.146.470 [id number] Univers 14:13:00 14:19:00 SHAN 350.1.13.10 i ty of [facility] 4.2.7.2.[place] [id number] [facility] [address] [facility] 2022-07-04 2022-07-04 [facility] [id number] Univers 14:00:00 14:00:00 ROBINA [facility] 2022-07-04 2022-07-04 Outpatient Zeke BECERRIL [facility] ERT [id number] Univers 14:00:00 14:00:00 ROBINA [facility] 2022-07-04 2022-07-04 Telephone [facility] 1.2.840.114 [id number] Univers 00:00:00 00:00:00 Robina [facility] 350.1.13.10 it y of [place] 4.2.7.2.686 Neal as JOEL?BLEA [phone] Nd edison LOAIZA [address] [place] [address] MEDICAL OFFICE BUILDING 2022-07-04 2022-07-04 Refill [facility] 1.2.840.114 [id number] Univers 00:00:00 00:00:00 Robina [facility] 350.1.13.10 it y of [place] 4.2.7.2.686 Neal as JOEL?BLEA [phone] Nd dical FADIA [address] [facility] MEDICAL OFFICE BUILDING 2022-06-28 2022-06-28 Telephone [facility] 1.2.595.510 [id number] Univers 00:00:00 00:00:00 [facility] 350.1.13.10 i ty of [place].2.7.2.[place] julissa [place]AMBERT [id number] [address] OFFICE BUILDING 2022-06-27 2022-06-27 Outpatient R [facility] [id number] Univers 13:15:00 13:15:00 IZABELA PHAM [facility] 2022-06-21 2022-06-23 Hospital ER [facility] 1 [id number] [facility] 08:54:00 18:00:00 [facility] 2022-06-21 2022-06-23 Inpatient ER RHETT CUEVAS [facility] [id number] 08:54:00 18:00:00 [facility] 2022-06-21 2022-06-23 [facility] 1 [id number] [facility] 08:54:00 18:00:00 [facility] 2022-06-22 2022-06-22 Telephone [facility] 1.2.840.114 [id number] Univers 00:00:00 00:00:[address] [facility] 350.1.13.10 it y of [place] 4.2.7.2.686 Neal as JOEL?BLEA [id number] Nd dical FADIA 044 [facility] OFFICE [facility] 2022-06-21 2022-06-21 Orders Doctor ASHER 1.2.840.114 [id number] Univers 00:00:00 00:00:00 Only Unassigned, CHIRAG 350.1.13.10 ity of [place] [facility] 4.2.7.2.686 Neal as [id number] [address] 2022-06-17 2022-06-17 Telephone [facility] 1.2.840.114 [id number] Univers 00:00:00 00:00:[address] [facility] 350.1.13.10 it y of José Miguel T[place]RE[place] 4.2.7.2.686 Neal as JOEL?BLEA [phone] Nd edison LOAIZA [address] [place] [address] MEDICAL OFFICE BUILDING 2022-06-16 2022-06-16 Office [facility] 1.2.840.114 [id number] Univers 11:30:00 11:45:00 Visit [facility] 350.1.13.10 i ty of [place] [id number] [address] OFFICE BUILDING 2022-06-16 2022-06-16 Outpatient R LAWRENCE PETERSON [facility] 1 [id number] Univers 11:30:00 11:30:00 LAWRENCE PETERSON [facility] 2022-06-16 2022-06-16 Telephone [facility] 1.2.290.826 [id number] Univers 00:00:00 00:00:00 [facility] 350.1.13.10 i ty of [place] [id number] [address] OFFICE BUILDING 2022-06-14 2022-06-14 Telephone [facility] 1.2.115.751 [id number] Univers 00:00:00 00:00:00 [facility] 350.1.13.10 i ty of [place] 4.2.7.2.[place] [phone] [address] OFFICE BUILDING 2022-06-08 2022-06-08 Telephone LAKESHIA Pham 1.2.559.395 [id number] Univers 00:00:00 00:00:00 Izabela BEARD 350.1.13.10 i ty of HOSPITAL 4.2.7.2.686 Neal as [id number] [address] 2022-06-08 2022-06-08 Transition ANASTASIIA Calderon 1.2.840.114 [id number] Univers 00:00:00 00:00:00 of Care Elyssa BENNETT 350.1.13.10 i ty of [place]2.[place].2.[place] [id number] [facility] [address] 2022-05-26 2022-06-07 Inpatient U CRIS [facility] [id number] Univers 15:42:00 15:09:00 ALLAN ity [facility] 2022-05-26 2022-06-07 [facility] Meche Zapata Meme GAMBLE 1.2.840.1 14 [id number] Univers 15:42:00 15:09:00 Encounter Luis Huerta 350.1.13.10 ity of [facility] 4.2.7.2.686 [place] Lance Neal [id number] Medical Allan Lynch [address] 2022-06-07 2022-06-07 Outpatient R IGLESIA [facility] [id number] Univers 13:00:00 13:00:00 RENEE ity [facility] 2022-06-03 2022-06-03 Surgery TYE Peterson 1.2.840.114 [id number] Univers 07:00:00 09:33:00 Lawrence BEARD 350.1.13.10 i ty of [facility] 4.2.7.2.686 Neal as [id number] [facility] [address] 2022-06-02 2022-06-02 Telephone [facility] 1.2.895.735 [id number] Univers 00:00:00 00:00:00 Izabela TORREZ 350.1.13.10 ity of [place] [phone] Nd edison ARENAS [address] BUILDING 2022-06-01 2022-06-01 Telephone [facility] 1.2.840.114 [id number] Univers 00:00:00 00:00:[address] [facility] 350.1.13.10 it y of José Miguel [place] 4.2.7.2.686 Neal as JOEL?BLEA [phone] Nd edison RAOEY [address] [facility] MEDICAL OFFICE BUILDING 2022-05-30 2022-05-30 Surgery TYE Lynch 1.2.840.114 [id number] Univers 20:00:00 22:46:00 Allan BEARD 350.1.13.10 it y of [facility] 4.2.7.2.686 Neal as [id number] [facility] [address] 2022-05-29 2022-05-29 Surgery TYE Lynch 1.2.840.114 [id number] Univers 07:20:00 10:33:00 Allan BEARD 350.1.13.10 it y of [facility] 4.2.7.2.686 Neal as [id number] [facility] [address] [facility] 2022-05-26 2022-05-26 Outpatient R JERRICA, [facility] [id number] Univers 09:45:00 09:45:00 ROBINA [facility] 2022-05-24 2022-05-24 Outpatient R ROGER, [facility] [id number] Univers 00:00:00 00:00:00 WOO [facility] 2022-05-24 2022-05-24 Prep [facility] 1.2.840.114 [id number] Univers 00:00:00 00:00:00 Surgery Izabela TORREZ 350.1.13.10 ity of [place] [id number] [facility] 188 [facility] 2022-05-23 2022-05-23 Emergency X [facility] ERT [id number] Univers 16:40:00 18:12:00 [facility] 2022-05-23 2022-05-23 Emergency X [facility] ERT [id number] Univers 16:40:00 18:12:00 [facility] 2022-05-23 2022-05-23 Emergency [facility] 1.2.840.114 [id number] Univers 16:40:00 18:12:00 Rodrigo Familia RICEDAVIDE 350.1.13.10 ity of [place] 4.2.7.2.[place] CAMPUS [id number] [facility] [address] [facility] 2022-05-23 2022-05-23 [facility] 1.2.847.468 [id number] Univers 03:49:00 06:12:00 [facility] 350.1.13.10 ity of [facility] 4.2.7.2.[place] [phone] [facility] [address] [facility] 2022-05-23 2022-05-23 [facility] 1.2.840.114 [id number] Univers 00:00:00 00:00:[address] [facility] 350.1.13.10 it y of José Miguel [facility] 4.2.7.2.686 Neal as JOEL?BLEA [phone] Nd dical KNEY [address] [facility] MEDICAL OFFICE [facility] 2022-05-19 2022-05-19 Outpatient [facility] [id number] Univers 09:30:00 10:37:40 IZABELA PHAM [facility] 2022-05-19 2022-05-19 Office [facility] 1.2.840.114 [id number] Univers 09:30:00 10:37:40 Visit [facility] 350.1.13.10 ity of [facility] 4.2.7.2.686 [place] [facility] [phone] Nd dical NAL 188 [facility] 2022-05-19 2022-05-19 Orders Doctor LAKESHIA 1.2.840.114 [id number] Univers 00:00:00 00:00:00 Only Unassigned, CHIRAG 350.1.13.10 ity of [place] [facility] 4.2.7.2.686 Neal as [id number] [facility] [address] [facility] 2022-05-17 2022-05-17 Outpatient R ROGER [facility] [id number] Univers 08:00:00 08:57:35 WOO ity [facility] 2022-05-17 2022-05-17 Orders Doctor LAKESHIA 1.2.840.114 [id number] Univers 00:00:00 00:00:00 Only Unassigned, CHIRAG 350.1.13.10 ity of [place] [facility] 4.2.7.2.686 Neal as [id number] [address] 2022-05-16 2022-05-16 Orders Doctor LAKESHIA 1.2.840.114 [id number] Univers 00:00:00 00:00:00 Only Unassigned, CHIRAG 350.1.13.10 ity of [place] [facility] 4.2.7.2.686 Neal as [id number] [address] 2022-05-05 2022-05-05 Outpatient R [facility] [id number] Univers 10:00:00 10:00:00 ROBINA [facility] 2022-05-05 2022-05-05 Telephone [facility] 1.2.840.114 [id number] Univers 00:00:00 00:00:[address] [facility] 350.1.13.10 it y of [place] 4.2.7.2.686 Neal as JOEL?BLEA [phone] [address] MEDICAL OFFICE [facility] 2022-05-04 2022-05-04 Orders Doctor ASHER 1.2.840.114 [id number] Univers 00:00:00 00:00:00 Only Unassigned, CHIRAG 350.1.13.10 ity of [place] [facility] 4.2.7.2.686 Neal as [id number] [address] 2022-05-03 2022-05-03 Office [facility] 1.2.840.114 [id number] [facility] 09:45:00 10:15:[address] [facility] 350.1.13.10 it y of [place] 4.2.7.2.686 Neal as JOEL?BLEA [phone] [address] MEDICAL OFFICE [facility] 2022-05-03 2022-05-03 Outpatient [facility] [id number] Univers 09:45:00 09:45:00 ROBINA [facility] 2022-04-22 2022-04-22 Orders Doctor LAKESHIA Pastrana2.840.114 [id number] Univers 00:00:00 00:00:00 Only Unassigned, CHIRAG 350.1.13.10 ity of [place] [facility] 4.2.7.2.686 Neal as [id number] [address] 2022-04-22 2022-04-22 Telephone [facility] 1.2.840.114 10 [id number] Univers 00:00:00 00:00:00 Strarayol Jeronimo TORREZ 350.1.13.10 ity of [facility] 4.2.7.2.[place] [phone] [address] 2022-04-13 2022-04-13 Office [facility] 1.2.630.039 [id number] Univers 09:30:00 10:00:00 Visit Dawson TORREZ 350.1.13.10 ity of [place] [id number] [address] 2022-04-13 2022-04-13 Outpatient R DAWSON CHOUDHURY [facility] [id number] [facility] 09:30:00 09:30:00 [facility] ity of [facility] 2022-04-13 2022-04-13 Orders Doctor LAKESHIA 1.2.840.114 [id number] [facility] 00:00:00 00:00:00 Only Unassigned, CHIRAG 350.1.13.10 ity of [place] [facility] 4.2.7.2.686 Neal as [phone] [place] [address] [address] 2022-04-13 2022-04-13 Telephone [facility] 1.2.840.114 10 [id number] Univers 00:00:00 00:00:00 Straidl Jeronimo MULTISPEC 350.1.13.10 ity of [place].2.[place] [id number] [facility] AND JONAH [address] [facility] 2022-04-07 2022-04-07 Office [facility] 1.2.840.114 [id number] [facility] 10:30:00 11:02:[address] [facility] 350.1.13.10 it y of [place] SHAN 4.2.7.2.686 Neal as JOEL?BLEA [phone] [address] MEDICAL OFFICE BUILDING 2022-04-07 2022-04-07 Outpatient [facility] [id number] Univers 10:30:00 10:30:00 ROBINA ity [facility] 2022-04-06 2022-04-06 Telephone Jerrica [facility] 1.2.840.114 [id number] Univers 00:00:00 00:00:[address] [facility] 350.1.13.10 it y of [place] 4.2.7.2.686 Neal as JOEL?BLEA [phone] Nd edison [address] MEDICAL OFFICE BUILDING 2022-04-02 2022-04-02 Plate Filler 1, [facility] Sleep Lab Bed [facility] 1. 2.840.114 [id number] Univers 20:00:00 22:30:00 Visit Dawson Choudhury 350.1.13. 10 ity of [facility] 4.2.7.2.686 [facility] [id number] [facility] [address] [facility] 2022-04-02 2022-04-02 Outpatient R DAWSON CHOUDHURY [facility] [id number] Univers 20:00:00 20:00:00 DAWSON CHOUDHURY ity [facility] 2022-04-02 2022-04-02 Orders Doctor LAKESHIA 1.2.840.114 [id number] Univers 00:00:00 00:00:00 Only Unassigned, CHIRAG 350.1.13.10 ity of [place] [facility] 4.2.7.2.686 Neal as [id number] [facility] [address] 2022-03-24 2022-03-24 [facility] Susan Manjarrez [facility] 1.2.840.114 10 [id number] Univers 08:01:23 23:59:00 Encounter SHAN 350.1.13.10 ity of [facility] 4.2.7.2.686 [facility] [id number] [facility] [address] 2022-03-24 2022-03-24 Outpatient R SOFI [facility] [id number] Univers 07:57:08 08:00:00 [facility]22-[facility] 2022-03-24 [facility] 1.2.840.114 [id number] Univers 07:57:08 08:00:00 Encounter Delroy TORREZ 350.1.13.10 ity of [facility] 4.2.7.2.[place] [phone] [facility] [address] 2022-02-16 2022-02-16 Telephone [facility] 1.2.840.114 [id number] Univers 00:00:00 00:00:[address] [facility] [id number] it y of José Miguel [facility] 4.2.7.2.686 Neal as JOEL?BLEA [phone] [address] MEDICAL OFFICE BUILDING 2022-02-15 2022-02-15 Orders Doctor LAKESHIA 1.2.840.114 [id number] Univers 00:00:00 00:00:00 Only Unassigned, CHIRAG 350.1.13.10 ity of [facility] 4.2.7.2.686 Neal as [phone] [address] 2022-02-03 2022-02-03 Orders Doctor LAKESHIA 1.2.840.114 [id number] Univers 00:00:00 00:00:00 Only Unassigned, CHIRAG 350.1.13.10 ity of [facility] 4.2.7.2.686 Neal as [phone] [address] 2022-02-02 2022-02-02 Office [facility] 1.2.840.114 [id number] Univers 09:30:00 09:45:[address] [facility] 350.1.13.10 it y of [place] [facility] [facility] 4.2.7.2.686 Neal as JOEL?BLEA [id number] [address] MEDICAL OFFICE BUILDING 2022-02-02 2022-02-02 Outpatient R [facility] [id number] Univers 09:30:00 09:40:22 ROBINA ity of [facility] 2022-01-17 2022-01-17 Orders Doctor LAKESHIA 1.2.840.114 [id number] Univers 00:00:00 00:00:00 Only Unassigned, CHIRAG 350.1.13.10 ity of [place] [facility] 4.2.7.2.686 Neal as [phone] [address] 2022-01-03 2022-01-03 Office [facility] 1.2.840.114 [id number] Univers 09:15:00 09:30:[address] [facility] 350.1.13.10 it y of [place] 4.2.7.2.686 Neal as JOEL?BLEA [phone] [facility] 044 [facility] OFFICE [facility] 2022-01-03 2022-01-03 Outpatient [facility] [id number] Univers 09:15:00 09:15:00 ROBINA [facility] 2021-12-08 2021-12-08 Office [facility] 1.2.924.809 [id number] Univers 10:20:00 10:40:00 Visit [facility] 350.1.13.10 ity of [place].2.[place] [phone] Nd dical NAL 085 [facility] 2021-12-08 2021-12-08 Outpatient R BINU CHOUDHURYINLawson [facility] [id number] Univers 10:20:00 10:20:00 [facility] 2021-12-08 2021-12-08 Outpatient R MACEY [facility] [id number] Univers 10:20:00 10:20:00 [facility] 2021-12-08 2021-12-08 Orders Doctor ASHER 1.2.840.114 [id number] Univers 00:00:00 00:00:00 Only Unassigned, CHIRAG 350.1.13.10 ity of [place] [facility] 4.2.7.2.686 Neal as [id number] [address] 2021-12-02 2021-12-02 [facility] 1.2.840.114 [id number] Univers 11:00:00 11:15:[address] [facility] 350.1.13.10 it y of [place] 4.2.7.2.686 Neal as JOEL?BLEA [phone] [facility] [address] [place] [address] MEDICAL OFFICE BUILDING 2021-12-02 2021-12-02 Outpatient R JERRICA [facility] [id number] Univers 11:00:00 11:00:00 ROBINA hooks [facility] 2021-11-25 2021-11-25 Outpatient R DAWSON CHOUDHURY [facility] [id number] Univers 20:00:00 20:00:00 DAWSON CHOUDHURY [facility] 2021-11-22 2021-11-22 Outpatient R BINU CHOUDHURYINLawson [facility] [id number] Univers 10:15:00 10:15:00 [facility] 2021-11-04 2021-11-04 Plate Filler [facility] Sleep Lab [facility] 1.2 .840.114 [id number] Univers 10:00:00 10:15:00 Visit Dawson Choudhury 350.1.13. 10 ity [facility] 4.2.7.2.686 [facility] [phone] [facility] [address] [facility] 2021-11-04 2021-11-04 Outpatient R BINU CHOUDHURYINLawson [facility] [id number] Univers 10:00:00 10:00:00 BINU CHOUDHURYINLawson [facility] 2021-11-04 2021-11-04 Orders Doctor ASHER 1.2.840.114 [id number] Univers 00:00:00 00:00:00 Only Unassigned, CHIRAG 350.1.13.10 ity of [place] [facility] 4.2.7.2.686 Neal as [id number] [address] 2021-11-02 2021-11-02 Outpatient R JERRICA [facility] [id number] Univers 09:30:00 10:02:11 ROBINA [facility] 2021-11-02 2021-11-02 Office Jerrica [facility] 1.2.840.114 [id number] Univers 09:30:00 09:45:[address] [facility] 350.1.13.10 it y of José [place] 4.2.7.2.686 Neal as JOEL?BLEA [phone] [address] MEDICAL OFFICE [facility] 2021-11-02 2021-11-02 Telephone [facility] 1.2.840.114 [id number] Univers 00:00:00 00:00:00 Strahermelinda Pringle MULTISPEC 350.1.13.10 ity of [place].2.[place] [phone] Yolanda Lucero [address] [place] [address] [facility] 2021-10-07 2021-10-07 Telephone [facility] 1.2.840.114 [id number] [facility] 00:00:00 00:00:[address] [facility] 350.1.13.10 it y of [place] 4.2.7.2.686 Neal as JOEL?BLEA [phone] [address] OFFICE [facility] 2021-10-05 2021-10-05 Outpatient [facility] [id number] Univers 14:15:00 14:43:53 ROBINA ity [facility] 2021-10-05 2021-10-05 [facility] 1.2.840.114 [id number] Univers 14:15:00 14:30:[address] [facility] 350.1.13.10 it y of [place] 4.2.7.2.686 Neal as JOEL?BLEA [phone] [address] MEDICAL OFFICE [facility] 2021-10-05 2021-10-05 Outpatient R [facility] [id number] Univers 14:15:00 14:15:00 ROBINA ity [facility] 2021-09-22 2021-09-22 Office [facility] 1.2.650.970 [id number] Univers 13:40:00 14:00:00 Visit Dawson Pringle [place] 350.1.13.10 ity of [place] 4.2.7.2.686 [place] [facility] [id number] Nd alpa[address] 2021-09-22 2021-09-22 Outpatient R DAWSON CHOUDHURY [facility] [id number] Univers 13:40:00 13:40:00 DAWSON CHOUDHURY kirit [facility] 2021-09-22 2021-09-22 Outpatient R BINU CHOUDHURYINLawson [facility] [id number] Univers 13:40:00 13:40:00 DAWSON CHOUDHURY [facility] 2021-09-21 2021-09-21 Letter LAKESHIA Morales 1.2.840.114 [id number] Univers 00:00:00 00:00:00 (Out) Erma Pringle [place] 350.1.13.10 it y of [facility] 4.2.7.2.686 Neal as [phone] [address] 2021-09-20 2021-09-20 Outpatient R [facility] [id number] Univers 15:00:00 15:33:41 MAGDALENE hooks o [facility] 2021-09-20 2021-09-20 [facility] 1.2.840. 114 [id number] Univers 15:00:00 15:33:41 [facility] 350.1.13.10 ity of [place] 4.2.7.2.686 Neal as JOEL?BLEA [phone] [address] MEDICAL OFFICE BUILDING 2021-09-20 2021-09-20 Outpatient [facility] [id number] Univers 15:00:00 15:33:[address] [facility] 2021-09-15 2021-09-15 [facility] [id number] Univers 11:15:00 11:37:11 [facility] 2021-09-15 2021-09-15 Office [facility] 1.2.840.114 [id number] Univers 11:15:00 11:30:[address] [facility] 350.1.13.10 it y of [place] 4.2.7.2.686 Neal as JOEL?BLEA [phone] [address] MEDICAL OFFICE BUILDING 2021-09-15 2021-09-15 Outpatient R [facility] [id number] Univers 11:15:00 11:15:00 ROBINA ity [facility] 2021-06-30 2021-06-30 Orders Doctor LAKESHIA 1.2.840.114 [id number] Univers 00:00:00 00:00:00 Only Unassigned, CHIRAG 350.1.13.10 ity of [place] [facility] 4.2.7.2.686 Neal as [phone] [facility] [address] [facility] 2021-05-24 2021-05-24 Telephone [facility] 1.2.840.114 [id number] Univers 00:00:00 00:00:[address] [facility] 350.1.13.10 it y of José Miguel [place] 4.2.7.2.686 Neal as JOEL?BLEA [phone] Nd alpaletty LOAIZA [address] [place] [address] MEDICAL OFFICE BUILDING 2021-05-11 2021-05-11 Outpatient R JERRICA [facility] [id number] Univers 11:45:00 11:45:00 ROBINA [facility] 2021-03-31 2021-04-02 Emergency X SYD [facility] ERT [id number] Univers 09:05:00 07:46:00 CARLOS [facility] 2021-03-31 2021-04-02 Emergency Ladonna Bryant [facility] 1.2.8 40.114 [id number] Univers 09:05:00 07:46:00 NeelimacatrachoCarlos 350.1.13.10 ity of [facility] 4.2.7.2.686 [facility] [phone] [address] 2020-12-21 2020-12-21 Emergency X BRIDGET [facility] ERT [id number] Univers 12:12:00 16:04:00 MICHAEL [facility] 2020-12-21 2020-12-21 Emergency [facility] 1.2.021.919 [id number] Univers 12:12:00 16:04:00 Michael Fontaine SHAN 350.1.13.10 i ty of [facility] 4.2.7.2.686 [place] [phone] [address] 2020-12-10 2020-12-10 Outpatient R [facility]ED[facility]JUMCH[facility] [id number] Univers 09:00:00 09:00:00 ROBINA kirit [facility] 2020-12-08 2020-12-08 Emergency [facility] 1.2.863.261 [id number] Univers 05:45:00 08:15:00 Carlos Torrez 350.1.13.10 ity of [place] 4.2.7.2.686 [place] [facility] [phone] [facility] [address] [facility] 2020-12-08 2020-12-08 Emergency X [facility] ERT [id number] Univers 05:45:00 08:15:00 CARLOS ity [facility] 2020-11-10 2020-11-10 Outpatient [facility] [id number] Univers 13:10:00 13:10:00 ity [facility] 2020-11-10 2020-11-10 Outpatient Zeke [facility]IL[facility] [id number] Univers 09:30:00 10:05:31 ROBINA [facility] 2020-11-10 2020-11-10 Office [facility] 1.2.840.114 [id number] Univers 09:22:11 09:52:11 Visit [facility] 350.1.13.10 it y of [place] 4.2.7.2.686 Neal as Joel?Blea [phone] [address] Medical Office Building 2020-09-19 2020-09-19 Outpatient [facility] 456 997- Lakeisha 03:24:00 03:24:00 ECHASE_ [id number] Medica l Group 2020-09-04 2020-09-04 Orders Doctor LAKESHIA 1.2.840.114 [id number] Univers 00:00:00 00:00:00 Only Unassigned, CHIRAG 350.1.13.10 ity of [place] [facility] 4.2.7.2.686 Neal as [id number] [facility] [address] [facility] 2020-08-22 2020-08-22 Outpatient [facility] 456 997- Kyle 05:19:00 05:19:00 ECHASE_ 46539 Medica l Group 2020-08-17 2020-08-17 Outpatient Zeke LOPEZ [facility] [id number] Univers 09:00:00 09:00:00 WONDIFUL ity o f [facility] 2020-08-06 2020-08-07 [facility] Edgard Leo 1.2.840.1 14 [id number] [facility] 13:41:00 23:00:00 Encounter Magali Curtis 350.1.13.10 ity of [facility] 4.2.7.2.[address] [place] [address] [phone] 2020-08-03 2020-08-05 Emergency Ted Lion 1.2.840. 114 [id number] [facility] 08:54:00 16:11:00 Allen Maravilla 350.1.13.10 ity [facility] 4.2.7.[address] [place] [id number] 2020-07-31 2020-07-31 Emergency [facility] 1.2.840.114 [id number] [facility] 08:39:00 14:39:00 Ladonna Torrez 350.1.13.10 ity [facility] 4.2.7.2.686 [facility] [phone] [address] 2020-07-25 2020-07-25 Out[facility] 456 7 Lakeisha 06:29:00 06:29:00 ECHASE_ 15514 Medica l Group 2020-07-24 2020-07-24 Outpatient [facility] 456 997- Kyle 11:00:00 11:00:00 ECHASE_ 16625 Medica l Group 2020-06-08 2020-06-08 Emergency [facility] 1.2.147.368 [id number] [facility] 13:48:00 17:01:00 Ted Torrez 350.1.13.10 i ty of [place] 4.2.7.2.686 [facility] [phone] [address] 2020-01-28 2020-01-28 Outpatient JAM [facility] [id number] [address] [place] 00:00:00 00:00:00 [facility] 2020-01-20 2020-01-20 Outpatient MINDYOLIVIAMARK, [facility] [id number] [place] 11:36:00 16:26:30 [facility] 2019-10-29 2019-10-31 Inpatient ALPHARETTA, [facility] [id number] [address] [place] 00:00:00 00:00:00 SOCRATESER [address] 2019-03-12 2019-03-12 Hospital Sergio, [facility] 1.2.840.114 [id number] Univers 14:43:00 23:59:00 Encounter [facility] 350.1.13.10 it[place] [id number] [facility] [address] 2019-03-11 2019-03-12 [facility] Sergio [facility] 1.2.840.114 [id number] [facility] 15:17:00 17:21:00 Encounter [facility] 350.1.13.10 it[place]2.[place] [id number] [facility] [address] 2019-03-11 2019-03-12 Office Surgery, Tdc General [facility] 1.2.8 40.114 [id number] Univers 09:09:17 08:54:29 [facility] 350.1.13.10 ity of [place] 4.2.7.2.686 [place] [id number] [facility] [address] 2018-10-31 2018-10-31 Office Surgery, Tdc Vascular [facility] 1.2. 840.114 [id number] Univers 08:41:29 09:11:29 Visit Nereida [facility] 350.1.13.10 it[place]2.686 [place] [id number] [facility] [address] 2014-07-22 2014-07-22 [facility] [id number] Memoria 17:51:00 21:57:00 Emergency r [place] 00 l [facility] 2014-07-22 2014-07-22 [facility] [id number] Memoria 17:51:00 21:57:00 Emergency r [place] 00 l [facility] 2014-07-22 2014-07-22 Outpatient Griffin 2.16.840. 2.16.840.1 . [id number] 12:51:00 16:57:00 Christy 1.513672. 808676.3.61 00 Radhika 3.615.0.1 5.0.101 01 Results Test Description Test Time Test Comments Results Result Comments Source COMP. METABOLIC PANEL (52811) 2022-07-11 11:58:27 Test Item Value Reference Range Interpretation Comme nts NA (test code = 138 mmol/L 135-145 5792734545) K (test code = 4.5 mmol/L 3.5-5.0 Slight hemoly sis 3964022331) CL (test code = 101 mmol/L 98-108 2467048580) CO2 TOTAL (test code = 23 mmol/L 23-31 1145338478) AGAP (test code = 14 2-16 2970742165) BUN (test code = 14 mg/dL 7-23 Slight hemo lysis 0295178056) GLUCOSE (test code = 94 mg/dL 70-110 3076849314) CREATININE (test code = 0.67 mg/dL 0.60-1.25 6456697336) TOTAL BILI (test code = 0.6 mg/dL 0.1-1.3 2757941692) CALCIUM (test code = 9.0 mg/dL 8.6-10.6 5137485407) T PROTEIN (test code = 7.2 g/dL 6.3-8.2 1221374214) ALBUMIN (test code = 4.5 g/dL 3.5-5.0 7712177720) ALK PHOS (test code = 88 U/L 34-122 Slight hemolysis 8028903031) ALTv (test code = 1742-6) 31 U/L 5-50 AST(SGOT) (test code = 40 U/L 13-40 Sligh t hemolysis 0334049253) eGFR (test code = 121.4 mL/min/1.73m2 8058919613) DEWAYNE (test code = DEWAYNE) Association of Glomerular Filtration Rate (GFR) and Staging of Kidney Disease* + +-- +------- +| GFR (mL/min/1.73 m2) ?| With Kidney Damage ?| ?Without Kidney Damage+ ---+ +- +| ?>90 ?| ?Stage one ?| ? Normal ?+ +- +------ +| ?60-89 ?| ?Stage two ?| ? Decreased GFR ? + +-- +------- +| ?30-59 ?| ?Stage three ?| ? Stage three ? + +-- +------- +| ?15-29 ?| ?Stage four ? | ? Stage four ?+ +- +------ +| ?<15 (or dialysis) ? ?| ?Stage five ? | ? Stage five ?+ +- +------ + *Each stage assumes the associated GFR [...] or urine or abnormalities in imaging tests). [facility] WITH [id number] 11:18:00 Test Item Value Reference Range Interpretation Comments WBC (test code = 7.15 See_Comment [Automated 3156-2) message] The sy stem which generated this result transmitted reference range : 4.20 - 10.70 10*3/?L. The reference range was not used to interpret this result as normal/abnormal . RBC (test code = 3.45 See_Comment L [Automated 008-8) message] The sy stem which generated this result transmitted reference range : 4.26 - 5.52 10*6/?L. The reference range was not used to interpret this result as normal/abnormal . HGB (test code = 9.3 g/dL 12.2-16.4 L 718-7) HCT (test code = 30.4 % 38.4-49.3 L 4544-3) MCV (test code = 88.1 fL 81.7-95.6 787-2) MCH (test code = 27.0 pg 26.1-32.7 785-6) MCHC (test code = 30.6 g/dL 31.2-35.0 L 786-4) RDW-SD (test code = 53.9 fL 38.5-51.6 H 50655-1) RDW-CV (test code = 17.2 % 12.1-15.4 H 788-0) PLT (test code = 400 See_Comment H [Automated 777-3) message] The sy stem which generated this result transmitted reference range : 150 - 328 10*3/ ?L. The reference r mitra was not used to interpret this result as normal/abnormal . MPV (test code = 8.8 fL 9.8-13.0 L 81262-5) NRBC/100 WBC (test 0.0 See_Comment [Automat ed code = 1322282978) message] The system which generated this result transmitted reference range : 0.0 - 10.0 /100 WBCs. The refer ence range was not u sed to interpret th is result as normal/abnormal . NRBC x10^3 (test code See_Comment [Auto mated = 7863877764) message] The s ystem which generated this result transmitted reference range : 10*3/?L. The reference range was not used to interpret this result as normal/abnormal . GRAN MAT (NEUT) % 71.5 % (test code = 770-8) IMM GRAN % (test code 0.40 % = 1640659977) LYMPH % (test code = 17.6 % 736-9) MONO % (test code = 7.4 % 5905-5) EOS % (test code = 1.8 % 713-8) BASO % (test code = 1.3 % 706-2) GRAN MAT x10^3(ANC) 5.11 10*3/uL 1.99-6.95 (test code = 1265902894) IMM GRAN x10^3 (test 0.03 10*3/uL 0.00-0.06 code = 3030682789) LYMPH x10^3 (test code 1.26 10*3/uL 1.09-3.23 = 731-0) MONO x10^3 (test code 0.53 10*3/uL 0.36-1.02 = 742-7) EOS x10^3 (test code = 0.13 10*3/uL 0.06-0.53 711-2) BASO x10^3 (test code 0.09 10*3/uL 0.01-0.09 = 704-7) Lab Interpretation Abnormal (test code = 83650-7) [facility]2022-[facility]11 09:27:00 Test Item Value Reference Range Interpretation Comments POCT GLU (test code = 2390660213) 95 mg/dL 70-110 Lab Interpretation (test code = Normal 77430-2) [facility]. METABOLIC PANEL (91745)2022-07-05 13:14:57 Test Item Value Reference Range Interpretation Comments NA (test code = 137 mmol/L 135-145 6087234455) K (test code = 4.2 mmol/L 3.5-5.0 5284987764) CL (test code = 100 mmol/L 98-108 4975557325) CO2 TOTAL (test code = 24 mmol/L 23-31 3175790156) AGAP (test code = 13 2-16 1259321394) BUN (test code = 11 mg/dL 7-23 9993372227) GLUCOSE (test code = 124 mg/dL 70-110 H 1484886910) CREATININE (test code = 0.81 mg/dL 0.60-1.25 3749608417) TOTAL BILI (test code = 0.6 mg/dL 0.1-1.4 9648780953) CALCIUM (test code = 9.1 mg/dL 8.6-10.6 2052468918) T PROTEIN (test code = 7.0 g/dL 6.3-8.2 2159937876) ALBUMIN (test code = 4.3 g/dL 3.5-5.0 4476582700) ALK PHOS (test code = 103 U/L 34-122 0064080957) ALTv (test code = 28 U/L 5-50 1742-6) AST(SGOT) (test code = 39 U/L 13-40 3961244559) eGFR (test code = 97.5 mL/min/1.73m2 3712078164) DEWAYNE (test code = DEWAYNE) Association of [...] tests). Lab Interpretation Abnormal (test code = 63748-0) [id number] 12:25:35 Test Item Value Reference Range Interpretation Comments NT-proBNP (test code = 523 pg/mL <=125 H 9760123585) DEWAYNE (test code = DEWAYNE) Biotin has been reported to cause a negative bias, interpret results relative to patient's use of biotin. Lab Interpretation (test Abnormal code = 26126-0) [facility] [id number] 12:25:35 Test Item Value Reference Range Interpretation Comments TROPONIN I (test code = 0.009 ng/mL <=0.034 4689619367) DEWAYNE (test code = DEWAYNE) Reference (Normal) [...] biotin. Lab Interpretation Normal (test code = 97050-9) [facility] WITH [id number] 12:01:31 Test Item Value Reference Range Interpretation Comments WBC (test code = 7.09 See_Comment [Automated 6690-2) message] The sy stem which generated this result transmitted reference range : 4.20 - 10.70 10*3/?L. The reference range was not used to interpret this result as normal/abnormal . RBC (test code = 3.08 See_Comment L [Automated 789-8) message] The sy stem which generated this result transmitted reference range : 4.26 - 5.52 10*6/?L. The reference range was not used to interpret this result as normal/abnormal . HGB (test code = 8.4 g/dL 12.2-16.4 L 718-7) HCT (test code = 27.8 % 38.4-49.3 L 4544-3) MCV (test code = 90.3 fL 81.7-95.6 787-2) MCH (test code = 27.3 pg 26.1-32.7 785-6) MCHC (test code = 30.2 g/dL 31.2-35.0 L 786-4) RDW-SD (test code = 52.8 fL 38.5-51.6 H 03093-2) RDW-CV (test code = 16.1 % 12.1-15.4 H 788-0) PLT (test code = 436 See_Comment H [Automated 777-3) message] The sy stem which generated this result transmitted reference range : 150 - 328 10*3/ ?L. The reference r mitra was not used to interpret this result as normal/abnormal . MPV (test code = 8.9 fL 9.8-13.0 L 06398-6) NRBC/100 WBC (test 0.3 See_Comment [Automat ed code = 2432328264) message] The system which generated this result transmitted reference range : 0.0 - 10.0 /100 WBCs. The refer ence range was not u sed to interpret th is result as normal/abnormal . NRBC x10^3 (test code 0.02 See_Comment [Auto mated = 7406580422) message] The s ystem which generated this result transmitted reference range : 10*3/?L. The reference range was not used to interpret this result as normal/abnormal . GRAN MAT (NEUT) % 69.0 % (test code = 770-8) IMM GRAN % (test code 0.40 % = 1829122950) LYMPH % (test code = 16.1 % 736-9) MONO % (test code = 12.7 % 5905-5) EOS % (test code = 0.8 % 713-8) BASO % (test code = 1.0 % 706-2) GRAN MAT x10^3(ANC) 4.89 10*3/uL 1.99-6.95 (test code = 7623657932) IMM GRAN x10^3 (test 0.03 10*3/uL 0.00-0.06 code = 5428599474) LYMPH x10^3 (test code 1.14 10*3/uL 1.09-3.23 = 731-0) MONO x10^3 (test code 0.90 10*3/uL 0.36-1.02 = 742-7) EOS x10^3 (test code = 0.06 10*3/uL 0.06-0.53 711-2) BASO x10^3 (test code 0.07 10*3/uL 0.01-0.09 = 704-7) Lab Interpretation Abnormal (test code = 73511-0) [facility] RE[facility] [id number] 14:13:16 Test Item Value Reference Range Interpretation Comments SCAN RESULT (test code = 4139843) UFH LOW DOSE 0.1 (2) See sca nned report. (BEAKER) (test code = 2593) See scanned reportU/S, RENAL, [id number] 17:23:00Reason for exam:->hydronephrosis [facility] : 1960 Sex: MFINAL REPORT [...] void residual urinary bladder volume Signed: [facility] Verified Date/Time: 06/23/2022 17:23:41 CBC W/PLT COUNT & AUTO [id number] 05:58:22 Test Item Value Reference Range Interpretation [...] (BEAKER) (test code = 2801) U/S, ABDOMINAL, [id number] 16:48:00Abdomen limited area? Add comment if clarification is needed.->Right upper quadrantReason for exam:->elevated Tbili - please evaluate [facility] : 1960 Sex: MFINAL REPORT [...] right upper quadrant ultrasound. Signed: Jm Baeza [facility] Verified Date/Time: 6:48:01 SERUM [id number] 16:04:04 Test Item Value Reference Range Interpretation Comments IMMUNOGLOBULIN A (IGA) 146 mg/dL 63-484 (AWID) (test code = 639) IMMUNOGLOBULIN G (IGG) 704 mg/dL 540-1822 (AWID) (test code = 427) IMMUNOGLOBULIN M (IGM) 72 mg/dL 22-293 (NUMBER26AKER) (test code = 638) SERUM IT ID [id number](NUMBER26AKER) No monoclonal (test code = 3817) protein detected. [facility]-PATHOLOGIST-"[id number] Kareenmslaurie Lawler " ([facility]) (test code = M.DMinda 3801) Clinical [employer] Intern - SFOperator ID - ADMINPROTEIN ELECTROPHORESIS, SERUM WITH REFLEX TO [id number] 16:03:41 Test Item Value Reference Range Interpretation [...] (test code = increased. 2615) Non-specific change. [id number] [facility] [place], (BEAKER) (test code = M.D. 2616) PROTEIN TOTAL SERUM, 6.6 gm/dL 6.0-8.3 SPEP (BEAKER) (test code = 2660) Clinical [employer] Intern - SFOperator ID - ADMINOperator ID - ADMHEPARIN ANTIBODY 2022-06-22 12:12:51 Test Item Value Reference Range Interpretation Comments HEPARIN ANTIBODY Positive-See Serotonin Negative A (BEAKER) (test code = Release Assay for 646) Confirmation HEPARIN ANTIBODY OD 3.000 <0.400 H (BEAKER) (test code = 2659) 4T TOTAL SCORE 5 (BEAKER) (test code = 2661) [id number] 05:50:16 Test Item Value Reference Range Interpretation Comments HAPTOGLOBIN (BEAKER) (test code = 308 mg/dL 14-258 H 366) Seasoning Mixer ID - ADMINOperator ID - ADMINVITAMIN [id number] 05:20:33 Test Item Value Reference Range Interpretation Comments VITAMIN B12 (BEAKER) (test code = 359 pg/mL 213-816 774) Seasoning Mixer ID - [id number] 05:20:33 Test Item Value Reference Range Interpretation Comments FERRITIN (BEAKER) (test code = 415.83 ng/mL 5.00-275.00 H 361) Seasoning Mixer ID - RADHAON, TIBC, % SAT. (WITHOUT FERRITIN)2022-06-22 04:59:45 Test Item Value Reference Range Interpretation Comments IRON (BEAKER) (test code = 547) 38.0 ug/dL 40.0-160.0 L TOTAL IRON BINDING CAPACITY 311 ug/dL 250-450 (BEAKER) (test code = 769) IRON % SATURATION (2) (BEAKER) 12 % 20-55 L (test code = 2590) Seasoning Mixer ID - MARCORETICULOCYTE [id number] 04:53:40 Test Item Value Reference Range Interpretation Comments RETICULOCYTE COUNT PCT (BEAKER) (test 5.7 % 0.5-1.8 H code = 575) Seasoning Mixer ID - 6000CBC W/PLT COUNT & AUTO [id number] 04:53:36 Test Item Value Reference Range Interpretation [...] (BEAKER) (test code = 2801) HEPATIC FUNCTION [id number] 04:48:30 Test Item Value Reference Range Interpretation [...] (test code = 19 U/L 6-55 347) Seasoning Mixer ID - ADMINLACTATE DEHYDROGENASE (LDH)2022-06-22 04:48:30 Test Item Value Reference Range Interpretation Comments LACTATE DEHYDROGENASE (BEAKER) (test 271 U/L 125-220 H code = 635) Seasoning Mixer ID - ADMINBASIC METABOLIC [id number] 04:48:29 Test Item Value Reference Range Interpretation [...] not appl icable for dialysis patien ts Seasoning Mixer ID - [id number] 04:48:29 Test Item Value Reference Range Interpretation Comments MAGNESIUM (BEAKER) (test code = 2.2 mg/dL 1.6-2.6 627) Seasoning Mixer ID - ADMINCOMPREHENSIVE METABOLIC [id number] 13:27:13 Test Item Value Reference Range Interpretation [...] not appl icable for dialysis patien ts Seasoning Mixer ID - JSCBC W/PLT COUNT & AUTO [id number] 13:14:04 Test Item Value Reference Range Interpretation [...] PERCENT (BEAKER) (test code = 2801) PROTHROMBIN TIME/[id number] 13:13:03 Test Item Value Reference Range Interpretation Comments PROTIME (BEAKER) (test code = 15.2 seconds 11.9-14.2 H 759) INR (BEAKER) (test code = 370) 1.28 <=5.90 RECOMMENDED COUMADIN/WARFARIN INR THERAPY RANGESSTANDARD DOSE: 2.0 - 3.0 Includes: PROPHYLAXIS for venous thrombosis, systemic embolization; TREATMENT for venous thrombosis and/or pulmonary embolus.HIGH RISK: Target INR is 2.5-3.5 for patients with mechanical heart valves.SARS-CoV2/RT-PCR ([facility]) 2022-06-21 13:03:14 Test Item Value Reference Interpretation Comments Range SARS-COV2/RT-PCR Negative Negative The SARS-Co V-2 (test code = target nucleic 45882-1) acids are not detected in thi s [...] S ARS CoV-2 test is a rapid, real-willie e RT-PCR test intended for e qualitative detection of nucleic acid fr [...] revoked sooner. Fact Sheet for Healthcare Providers: https://www.Genius/Documents/Xp ert%20Xpress%20SAR S%20CoV-2/Fact%20S heets/302-3802%20S ARS-COV-2%20HEALTH CARE%20PROVIDERS%2 0FACT%20SHEET.pdf Fact Sheet for Healthcare Patients: https://www.Genius/Documents/Xp ert%20Xpress%20SAR S%20CoV-2/Fact%20S heets/302-3801%20S ARS-COV-2%20PATIEN T%20FACT%20SHEET.p df Lab Interpretation Normal (test code = 23899-4) [facility]2022-06-21 13:03:14 Test Item Value Reference Interpretation Comments Range SARS-COV2/RT-PCR Negative Negative The SARS-Co V-2 (test code = target nucleic 15312-2) acids are not detected in thi s [...] S ARS CoV-2 test is a rapid, real-willie e RT-PCR test intended for e qualitative detection of nucleic acid fr [...] revoked sooner. Fact Sheet for Healthcare Providers: https://www.Genius/Documents/Xp ert%20Xpress%20SAR S%20CoV-2/Fact%20S heets/302-3802%20S ARS-COV-2%20HEALTH CARE%20PROVIDERS%2 0FACT%20SHEET.pdf Fact Sheet for Healthcare Patients: https://www.Genius/Documents/Xp ert%20Xpress%20SAR S%20CoV-2/Fact%20S heets/302-3801%20S ARS-COV-2%20PATIEN T%20FACT%20SHEET.p df Lab Interpretation Normal (test code = 41186-6) [facility]2022-06-21 13:03:14 Test Item Value Reference Range Interpretation Comments SARS-COV2/RT-PCR Negative Negative The SARS-Co V-2 target (test code = nucleic acids a re not 9450473) detected in thi s specimen. Negative result [...] individuals suspected of CO VID-19 by their [facility] e provider. This test has been authorized [...] revoked sooner. Fact Sheet for Healthcare Providers: https://www.[employer] m/Documents/Xpert%20Xpress%20SARS%20CoV-2/Fact%20Sheets/302-3802%70YGNT-PUU-2%20 HEALTHCARE%20PROVIDERS%20FACT%20SHEET.pdf Fact Sheet for Healthcare Patients: https://www.PhotoTLC/Documents/Xpert%20Xp ress%20SARS%20CoV-2/Fact%20Sheets/302-3801%32SLWW-FXB-5%20PATIENT%20FACT%20SHEET .pdfSURGICAL PATHOLOGY [id number] 19:37:37 Test Item Value Reference Range Interpretation Comments Case Report (test code Surgical Pathology ? ? = [id number]) ?Case: [id number] ? Authorizing Provider: ?Lawrence Peterson MD ?Collected: ? 06/03/2022 1042 ?Ordering Location: ? ? [facility] OR ? Received: ?06/03/2022 1154 ? Department ? Pathologist: ? Tatyana Monroe, ? MD PhD ? Specimen: ? ?OTHER, IVC FOREIGN BODY ? Final Diagnosis (test t4ptwVCaYUMxk3quWGKqhT code = 4507243982) FuZzEwMzNcZnRuYmpcdWMx IHtccnRmMVxlcGljMTAyMD BnFH9mdIdnwVy6kGnqWZJj diP6xQYhASfla1rxFGP0b8 uouzijWCEnYTweCx1yzIEl vTrpQlBnGNSmSOp4nT11AZ SqbQ7ysXVzELu2USUgwECr imDjXoIzCZFkuKZcqZN3CE JtUG8ujyfnFPvuJLogSDXc jsA0FLRsfEGsK4MeICSpBM 0lgrtsOUE3RArhKCAjYSW1 RvYuSKYaw5Hwozs4CbWkfE FyZFxwbGFpblxmczIwXHBh ciBBLiBIRUFSVCwgUkVNT1 ZBTCBPRiBJTkZFUklPUiBW RG1TZRTJVbQfId3IZMbBMv SFX6LFMeBcwSFvVXQkDMIr XW3XUQNTZZnMGK7UOOmWFV doGUSTIAJVVZMTUgODX6TB WiLfH8oAMFSYFjRKPpuPSw MVDU0GYLNTTpUkBbnHANTU OJnrXFFePXVcVUWvM6Ngy3 KhYEptvOanSXRrw60fj36f jDilf9LgIHehv1EsAXYhz4 FvyPX3rD1aFX3sBYBjcuJv BBNeGBLBVLVwD93FWBGEIZ 5cfCWorVfuvhCgBBugu9Jp Y6TrNbFuTEebkzKvXZGvRd htsakhIRTkETN4rzQiRVDe ABcoQDIgKXveDj3blYSmsV dxXwEvPXYjf8ykrdSXHFug DlVyS605HJHuUBjct7zun8 EqWWPuhIRrb3C4TSHPksso bBh1d3qzMeLwQaM9bRLuYR hwY8ecitPgmYIwG8IexQFd eWg0zQylW90se8B5OyzsZ9 tsNYFkFDFfC9UpLE8hPLUx Mgm2EAY8EZO9QQWfUCTvA3 GcVQ6nEACxjNZnJDu5s4qq gQgbPZGuXXQ1n7tuFOlwhi S0AW9peq8dzMp1t4scvjGo IOWnNECxvPOAJKYlE5YspC cbEl6haGg2rDccZwcaSVA7 Xyh0BN7xqk76afv4hPgzKH ZahaajMnY5SUyhBVAxeooe ZNw9WUnkPUVjoWI1SXOgdD YoY2UtIIXoCR3tndl7JYL2 MLllVFPvJoY7EVSlpGRjNV ElrKhwLXtns566RXD4OcAw BN2dA1Fbe9Z1iU3voHFfMX RrgDNmRdOcSJJwlx3xbMRm YXbak9RdPTS7uvN0lLXedX XkLCUyFW65Dimfd5SxEdpt RIX7OOGthgNix7Eix2imYd FjcsUqP0zmB9JhUBRvEXHs RBCfWuUswyXsx3Anm6MwdB ZehEd0k7yzOXCwBTIcxWld e1kfLGY6SVKjA6H0hFKto5 wrYNfzTGYnbML6eyE3OFBy xZYzY5LdzJ9fFLJgLU0enm e6c5ilNXR7VAhwDXNmOxJ4 gxI9IKZbrGFlKKWhxYgqFW rat237GGA6YbKyWSEwk5Kz S1AkdMtkI43ssFzeC19gAN TsdUrohW5isWbdlE1tHiZj ZnMyNFxxbFxwbGFpblxmMV xmczIwXGxhbmcxMDMzXGhp T3xkQhXnKUNtpLooBEvnv0 NoXGYxXGNmMlxmczIwXHBh euGYTCmfiyGmrAGpq55qRM xseSByZXZpZXdlZCBhbGwg b8CyS0xrYC8kX0HmqSHuke ZyteSoPJydFLFjk5n6iRCt kGwyw3VknFUwXO49isGbTW OpOTS4IVDxp6soHK21srat FmUgiG37gqTyezNhDNGyr1 bwE1cufOQwx1Ees5VknbBs VBmav9BkGD8ltAHjtlscpD Y6DUTmcEIjxfEmwaJ0cUjq LZLmnO4jxG4kzIkrjF2vLc SsThUgCRqtDH0yAKFuP6ax sCFaRSJhAHGtN2uoCaYptK 0awPxwFukrvdQ2XVBoyc51 Final Diagnosis Comment m6dyyWEwJXVjdSCtIZTyJb (test code = wanfMmPLLadNXyX2Plajyw 6402763248) QJwzCG5fRZ6gaNmenRSbgE PyGTKmThZdq1jnh620gOMc z8kpEHNBvpzuoIx2oPriL3 3bb5W9YsuvL5pzTGI8KQwc afZqgyCvQTFiiVH2SZrluu MaLqK5PXxeNUIpBnY6IPFk zROvOXO9mDsuSFMjtcauQw G7XBoyISKllatgGOp8XEbn CRBpgWS6QUZsiELnO0IbHD ZdKP1abuy4HEC4PSqxLAFw LiD5SJQjiBNzBNVlrKmkPU pzy559DOE4MaOpKUFsmrFn wZangE0cKfAeADasLePnD2 hjYnBhdDJccGFyIFRoZSBh Xp60HDOdkHWtcR8wuwRmkX R1PAQwCPHuVUY7PvgxH2Ys PZC2tdHdef0zzeCsgJNgzI 9ikSmzajWabdl0WIF2wIWj GZHgmaIthuYip9C2JFIxz2 E1QSIrz4MhhJojpa6qA00o uRLhRGHluQJacGyyyu5cZE YgdGhlIHNwZWNpbWVuIGlz ZQ4aYRWhJJTbr9Yly9YrKL UfstMqw24jlqxdhCdfPHUa KXXtheLpN7JhcNtzYUWzq6 UelWD1jK2sw0frs4PeBMLq cn0= Clinical Information Acute deep vein (test code = thrombosis (DVT) of 4801327330) iliac vein of both lower extremities [I82.423] Gross Description (test h5grxQJcRJNnfDZwQKBfAq code = 7196335813) qlnrFqACQynKDnT3Pubbqt GQriCB5dTL7ohUmuxTRsqT TkSLZxLrWda3zws205iAFv a5bzRPMPnwuakYh5qXgmJ3 8ej7S9TovbZ61deDZmMIM4 QAAhFCTrtOVqWCYtZYP6MP HopMHfI6kdDXWfCN7evxfi IFlxBPaiVPCntLP5JKSlpW MyJ9QgKRWuTZwlVNBjhxj3 BtRgLx0zpHCyiMrrXKbnYb ladIhyu2UlzSQzFOqfRORh TUZhPXkiLPLgF8UGPTEhRm t9LABjGTJjGnUFIJZ7CnM3 IELmEFKWVPDzPWpvFNQ2Eh kyIiBMUlIgODAwMDAwMDAw AVKrKQ2eOGvrmWEzIChqDq dvCKraN333XQunFSLzD6Ef O4UeKDriWDJ7WNIaBvOhGA VfKI8UOtGlAAT2LTHnOwNq MCi2WLj7GC3ZSjClWUDuJi V1RxEqYPDsIDy7SKkiKF4A IRB0KRMcIni6DTkfBYA0JJ LuMOv0LIHaKPxfunMgBKji UlgaADkgS82nhRUyXEvfjI FpblxmczIwIFNQRUNJTUVO UQBlvFSpAUOfnaJht6ThWD hzcXfbWWPbNdJocAizdJ3z SrHwBXEIgOBmsD8gezZQYL xuKEPfW1SgtjCqOWLsBUIw IGxhYmVsbGVkIHdpdGggdG rkSJRqmCqwxqWgY0I5woMr TZ8oQXLDUPJwnS9qTJHlEM DoRTPCQDOcgyIiH15gWw7i vBlsNpAlE5C2FWZtYIGkx1 2vxRK8bgKyKdScFU5upXNv dCzqGC84jLNtgHQjebudZT QzAYDiA9GvGZEylbbhKEZy XN69MPvsHa0kTQzgDM74RP GyEVitG0Avi4FywAKdu30b rBZ3QW14TUuieOshBV2vqM 4yMEVem5PshdReMLDoKWKa XQAsuXCfic5zYSdhf1NyNF 6bMNqgKGfetZnjaS5bomGk wFHmILMrTGLct7OaTeMJgO Oue3AnU8ktYU5upCEvZz2e PJzai8IkJZF3HV7cdnO7zF 6rHY1knPzeBVnlUJIreONt ZFxmczIyXHBhclxzYTMwXG UfuHUCd8IuCFNYzMsjYKHD B2rvmIMjMWjtCRWTCIlCN6 VYZApoUMLuR5SiD0EozsC6 y6vjqIrzf9HcrBCzDG4yfQ FyfQ== Disclaimer (test code = o0crzSKdNZOli9meSUWjfN 7097360591) FuZzEwMzNcZnRuYmpcdWMx VObdosLkXLlof0XjL6BmZc AwMFxhbnNpXGRlZmxhbmcx LYAlHTX2lxItGMWnETwxFJ YwDCiiYl0cbADxaYmdRiCe UPHtj4eenyMQJGtvFgZpB7 92IVSwFEatb9pnh9TfBZEi qECna6O1WPTAjkngmYy9mP psL90om8B4NzcgJ6xeCADf AEVyI3PrJL4nKVZpAld4LZ P3QSP3OJMtWEKcG1PeHR8l HEIlkHBuVGm5n3jemWtdWG GcNOL7b2ijWAiqafGcZE2q df7edUp2d9tkqpLxFIErRV CsoSXDBUEmH2LeeVvcVi3x uTx1gUodVbahGYK1Dnk2XE 2isr36bbm8iRxmVPEsiqlr TbW0PWkmTTDtmpeiYHu2YX xwNOOhmGX0TMMloMElF1Kh UMTyAY2vjgh8RJE1HVlfZO JxXkJ3AEBzyNMwAOUlxScx BAily040WXZ3PkFbUA3kZ2 Xgx7B0mQ6toLMvQAOboZOp AtJzOMCots3qiJBdKPcpt8 IgZYA3xkZ1iOVwvNGlPRCs RB48Yeivp4NcItyjm9ReM6 8mwEU7XLbto7aiYC3oOhN0 mpImPOjql5gjkV1bHdH7GO ccDD7zQR6iOAQsgG8rlvod XHBnYnJkcmhlYWRccGdicm VhIc6teOgfUBV0OZswC7mh kJ9pJaJ9ZGwpD3rbvF6cLN t9UQihkIS4BNWxlA3rKM3i eoywv0hrKEupYQlaBYGpui T9uzG1NRHitBBrQ2QqiK6t LLGuHB5pkgiaz0rqJRC7JD ixRXLiMXT9NbHdQEPtw3Jm jow0BjYng5OirMIoPRwtM1 2ew994PPSdivPvS6dmdSFy hihpmOMojyaqYGozfcW4DW JzmeTgn0SfQJIdUGX9GRxp SJafpFJqGLWxjEigg1pjR9 RscGFyXHBsYWluXGYxXGZz MjBcbGFuZzEwMzNcaGljaF rbWOdnKjHyGDWzDZoqM9sr ZaObS8BuBMNbAnDowRJwO1 ggVGhpcyByZXBvcnQgbWF5 OCyeK1t3WZYpytYrqQx3uy SnDwNdBYNpXUK9AFscuIQb EKFst8IgpjilvYCiNc7ilZ JoZQFypL8wNYDcIFKcIIha BI5vyKh4IDXQwDUtkPNkUt VGNUScNM95egUhPCXSzwcd x5A1MGxcPWAue2QaaUDtM4 fic5EjESAle90gYO4ne2A5 q8tgQXU1DQ9gu9TuMQJqeM FfpLTmKBWxh2Vgohatq0By EFFwquBil1XfAXDjzkPtzP LoAOHzidEkof1mpmTpKXYf VLFmC5XgwyzenHbgxcIiJX Rplr7jfhLbLNK8WOYDDWPh ANPaa5SrgN4urJPKWVE2nE Vvza7fgmVVnIUfUMJplw83 BYAzRF0eJ3ggHPQxFINudu FgaTVep3BrLTJstJS0eLNt HS5VAlQAc80dXVSyNPTXij KbGTNraMoxhSY4ynL5vC1q IChGREEpLlx+IFRoZSBGRE MsYN5fzhQbx0ZanhJilVka BKWbzHRab6UnsPZqp4BytW vhi8MveMHzcKIeWR8oPVXn clxwYXIgVVRNQiBMYWJvcm N3w0XxRXDrTHSkRJV5wZxl zgk1CQBdeR7xCUApX5eohv daSIbpTHNxj9ArhC4oyQWH hQXzt4FhcHYrkZWOkHKoJA 2rryAeUCxJAXhATGM9ffBl BUPxr5RqHVurU6ylB40ahX jfrGe6hWA7VYT8cY5cRzw+ IFxwYXJccGFyIEFwcHJvcH QsLDBbsLcvisZgE2JapdDv iF2vrTAfhfYpAF1sBQ2lC1 U3bPPbPEOlktSed1evQQts dmUgYmVlbiByZXZpZXdlZC Lxe1XdZLqqJIE2SKajlpUx bmNsdWRpbmcgSCZFLCBTcG RqdEArTWS1VPjxcvWumoHb MG9ciG3pmSlllH3pdHMcmM T1kosdVZDlSSJmkNtwAWCx KK9jxVIzWNEmlcRZlNsdzI LngJ3yU1XjTMSvHCNevr7i YAZwpN9nUDabl4FyujpgTD EtGOAwEHOnanXson7nUVLw lTWOAY3ZUKzfqDZnx8Euaa PqO5hTVZH2YNZhPtBlXbir KILarAVouUUrWCDdsb33QJ EgtZ2yxYvwLGOmxD6ypH7s uHrluU8eMwPzSkAgSLyfHO 7cYECdT5enkTUaYAAeQETm I0fwNkHtbY7bpNwaQDmqUr AsQmZoHPmjNJI6vM== Embedded Images (test code = 3956081582) [facility] METABOLIC PANEL (NA, K, CL, CO2, GLUCOSE, BUN, CREATININE, CA)2022-06-07 09:52:38 Test Item Value Reference Range Interpretation Comments NA (test code = 135 mmol/L 135-145 5877782050) K (test code = 4.0 mmol/L 3.5-5.0 4274919292) CL (test code = 104 mmol/L 98-108 5524223058) CO2 TOTAL (test code = 25 mmol/L 23-31 6203204718) AGAP (test code = 6 2-16 4312057887) BUN (test code = 16 mg/dL 7-23 6961890333) GLUCOSE (test code = 144 mg/dL 70-110 H 3204367791) CREATININE (test code = 1.10 mg/dL 0.60-1.25 2502468241) CALCIUM (test code = 8.4 mg/dL 8.6-10.6 L 6533098519) eGFR (test code = 68.5 mL/min/1.73m2 4969386777) DEWAYNE (test code = DEWAYNE) Association of [...] tests). Lab Interpretation Abnormal (test code = 93187-7) [facility] Test Item Value Reference Range Interpretation Comments MAGNESIUM (test code = 1553307291) 2.5 mg/dL 1.7-2.4 H Lab Interpretation (test code = Abnormal 07490-3) [facility] 09:52:38 Test Item Value Reference Range Interpretation Comments PHOSPHORUS (test code = 4138027985) 3.9 mg/dL 2.5-5.0 Lab Interpretation (test code = Normal 89954-8) [facility] WITH [id number] 12:15:07 Test Item Value Reference Range Interpretation Comments WBC (test code = 6.35 See_Comment [Automated 3590-2) message] The sy stem which generated this result transmitted reference range : 4.20 - 10.70 10*3/?L. The reference range was not used to interpret this result as normal/abnormal . RBC (test code = 2.65 See_Comment L [Automated 515-8) message] The sy stem which generated this [...] RDW-SD (test code = 51.5 fL 38.5-51.6 17550-8) RDW-CV (test code = 15.9 % 12.1-15.4 H 788-0) PLT (test code = 115 See_Comment L [Automated 777-3) message] The sy stem which generated this result transmitted reference range : 150 - 328 10*3/ ?L. The reference r mitra was not used to interpret this result as normal/abnormal . MPV (test code = 9.9 fL 9.8-13.0 60399-4) IPF % (test code = 2.9 % 1.2-10.7 Platelet count 1040829292) measured by fluorescence method. NRBC/100 WBC (test 0.3 See_Comment [Automat ed code = 3694119015) message] The system which generated this result transmitted reference range : 0.0 - 10.0 /100 WBCs. The refer ence range was not u sed to interpret th is result as normal/abnormal . NRBC x10^3 (test code 0.02 See_Comment [Auto mated = 8313474097) message] The s ystem which generated this result transmitted reference range : 10*3/?L. The reference range was not used to interpret this result as normal/abnormal . GRAN MAT (NEUT) % 60.5 % (test code = 770-8) IMM GRAN % (test code 1.70 % = 9503630832) LYMPH % (test code = 24.7 % 736-9) MONO % (test code = 8.7 % 5905-5) EOS % (test code = 3.9 % 713-8) BASO % (test code = 0.5 % 706-2) GRAN MAT x10^3(ANC) 3.84 10*3/uL 1.99-6.95 (test code = 5784718804) IMM GRAN x10^3 (test 0.11 10*3/uL 0.00-0.06 H code = 7157173225) LYMPH x10^3 (test code 1.57 10*3/uL 1.09-3.23 = 731-0) MONO x10^3 (test code 0.55 10*3/uL 0.36-1.02 = 742-7) EOS x10^3 (test code = 0.25 10*3/uL 0.06-0.53 711-2) BASO x10^3 (test code 0.03 10*3/uL 0.01-0.09 = 704-7) Lab Interpretation Abnormal (test code = 60813-6) [facility] WITH [id number] 12:15:07 Test Item Value Reference Range Interpretation [...] RDW-SD (test code = 51.5 fL 38.5-51.6 10683-8) RDW-CV (test code = 15.9 % 12.1-15.4 H 788-0) PLT (test code = 115 See_Comment L [Automated 777-3) message] The sy stem which generated this result transmitted reference range : 150 - 328 10*3/ ?L. The reference r mitra was not used to interpret this result as normal/abnormal . MPV (test code = 9.9 fL 9.8-13.0 26566-6) IPF % (test code = 2.9 % 1.2-10.7 Platelet count 9662215670) measured by fluorescence method. NRBC/100 WBC (test 0.3 See_Comment [Automat ed code = 5689844977) message] The system which generated this result transmitted reference range : 0.0 - 10.0 /100 WBCs. The refer ence range was not u sed to interpret th is result as normal/abnormal . NRBC x10^3 (test code 0.02 See_Comment [Auto mated = 7047899955) message] The s ystem which generated this result transmitted reference range : 10*3/?L. The reference range was not used to interpret this result as normal/abnormal . GRAN MAT (NEUT) % 60.5 % (test code = 770-8) IMM GRAN % (test code 1.70 % = 0401485592) LYMPH % (test code = 24.7 % 736-9) MONO % (test code = 8.7 % 5905-5) EOS % (test code = 3.9 % 713-8) BASO % (test code = 0.5 % 706-2) GRAN MAT x10^3(ANC) 3.84 10*3/uL 1.99-6.95 (test code = 0689433323) IMM GRAN x10^3 (test 0.11 10*3/uL 0.00-0.06 H code = 4394025325) LYMPH x10^3 (test code 1.57 10*3/uL 1.09-3.23 = 731-0) MONO x10^3 (test code 0.55 10*3/uL 0.36-1.02 = 742-7) EOS x10^3 (test code = 0.25 10*3/uL 0.06-0.53 711-2) BASO x10^3 (test code 0.03 10*3/uL 0.01-0.09 = 704-7) Lab Interpretation Abnormal (test code = 86378-2) [facility] Test Item Value Reference Range Interpretation Comments MAGNESIUM (test code = 9681198445) 2.4 mg/dL 1.7-2.4 Lab Interpretation (test code = Normal 56253-9) [facility]01 Test Item Value Reference Range Interpretation Comments PHOSPHORUS (test code = 0514826181) 4.1 mg/dL 2.5-5.0 Lab Interpretation (test code = Normal 27982-8) [facility] (NA, K, CL, CO2, GLUCOSE, BUN, CREATININE, CA)2022-06-05 11:43:01 Test Item Value Reference Range Interpretation Comments NA (test code = 137 mmol/L 135-145 4254985273) K (test code = 3.8 mmol/L 3.5-5.0 8227977107) CL (test code = 105 mmol/L 98-108 2134743248) CO2 TOTAL (test code = 28 mmol/L 23-31 2988668652) AGAP (test code = 4 2-16 6458952295) BUN (test code = 17 mg/dL 7-23 8367564050) GLUCOSE (test code = 86 mg/dL 70-110 6506612265) CREATININE (test code = 1.06 mg/dL 0.60-1.25 8416348290) CALCIUM (test code = 8.4 mg/dL 8.6-10.6 L 7760856874) eGFR (test code = 71.5 mL/min/1.73m2 5602801428) DEWAYNE (test code = DEWAYNE) Association of [...] tests). Lab Interpretation Abnormal (test code = 34191-9) [facility]01 Test Item Value Reference Range Interpretation Comments MAGNESIUM (test code = 4752133033) 2.4 mg/dL 1.7-2.4 Lab Interpretation (test code = Normal 05176-1) [facility] 11:[facility]:01 Test Item Value Reference Range Interpretation Comments PHOSPHORUS (test code = 5257951523) 4.1 mg/dL 2.5-5.0 Lab Interpretation (test code = Normal 93291-6) [facility] (NA, K, CL, CO2, GLUCOSE, BUN, CREATININE, CA)2022-06-05 11:43:01 Test Item Value Reference Range Interpretation Comments NA (test code = 137 mmol/L 135-145 2446161700) K (test code = 3.8 mmol/L 3.5-5.0 2437473688) CL (test code = 105 mmol/L 98-108 7254390454) CO2 TOTAL (test code = 28 mmol/L 23-31 6172475761) AGAP (test code = 4 2-16 7329093349) BUN (test code = 17 mg/dL 7-23 7213692045) GLUCOSE (test code = 86 mg/dL 70-110 3521558312) CREATININE (test code = 1.06 mg/dL 0.60-1.25 1718733507) CALCIUM (test code = 8.4 mg/dL 8.6-10.6 L 4584410597) eGFR (test code = 71.5 mL/min/1.73m2 0796041025) DEWAYNE (test code = DEWAYNE) Association of [...] tests). Lab Interpretation Abnormal (test code = 28189-9) [facility] (ALB,T.PRO,BILI T,BU/BC,ALT,AST,ALK PHOS)2022-06-04 08:25:57 Test Item Value Reference Range Interpretation Comments TOTAL BILI (test code = 0479905854) 0.7 mg/dL 0.1-1.1 BILI UNCON (test code = 6927287489) 0.3 mg/dL 0.1-1.1 BILI CONJ (test code = 2997249373) 0.0 mg/dL 0.0-0.3 T PROTEIN (test code = 7228630083) 6.4 g/dL 6.3-8.2 ALBUMIN (test code = 7989075155) 3.7 g/dL 3.5-5.0 ALK PHOS (test code = 3094759744) 105 U/L 34-122 ALTv (test code = 1742-6) 71 U/L 5-50 H AST(SGOT) (test code = 8179782897) 51 U/L 13-40 H Lab Interpretation (test code = Abnormal 94649-9) [facility]80866[facility] (ALB,T.PRO,BILI T,BU/BC,ALT,AST,ALK PHOS)2022-06-04 08:25:57 Test Item Value Reference Range Interpretation Comments TOTAL BILI (test code = 7856780815) 0.7 mg/dL 0.1-1.1 BILI UNCON (test code = 2212476181) 0.3 mg/dL 0.1-1.1 BILI CONJ (test code = 4149950477) 0.0 mg/dL 0.0-0.3 T PROTEIN (test code = 3703323652) 6.4 g/dL 6.3-8.2 ALBUMIN (test code = 3611254675) 3.7 g/dL 3.5-5.0 ALK PHOS (test code = 2579918810) 105 U/L 34-122 ALTv (test code = 1742-6) 71 U/L 5-50 H AST(SGOT) (test code = 6204553059) 51 U/L 13-40 H Lab Interpretation (test code = Abnormal 49438-4) [facility] [id number] 06:14:08 Test Item Value Reference Range Interpretation Comments TROPONIN I (test code = 0.027 ng/mL <=0.034 6873687067) DEWAYNE (test code = DEWAYNE) Reference (Normal) [...] biotin. Lab Interpretation Normal (test code = 35007-0) [facility] [id number] 06:14:08 Test Item Value Reference Range Interpretation Comments TROPONIN I (test code = 0.027 ng/mL <=0.034 1274046306) DEWAYNE (test code = DEWAYNE) Reference (Normal) [...] biotin. Lab Interpretation Normal (test code = 31024-4) [facility] WITH [id number] 05:33:25 Test Item Value Reference Range Interpretation Comments WBC (test code = 9.78 See_Comment [Automated 2690-2) message] The sy stem which generated this result transmitted reference range : 4.20 - 10.70 10*3/?L. The reference range was not used to interpret this result as normal/abnormal . RBC (test code = 2.85 See_Comment L [Automated 669-8) message] The sy stem which generated this [...] RDW-SD (test code = 50.4 fL 38.5-51.6 13497-1) RDW-CV (test code = 15.9 % 12.1-15.4 H 788-0) PLT (test code = 121 See_Comment L [Automated 777-3) message] The sy stem which generated this result transmitted reference range : 150 - 328 10*3/ ?L. The reference r mitra was not used to interpret this result as normal/abnormal . MPV (test code = 8.7 fL 9.8-13.0 L 26122-3) IPF % (test code = 2.3 % 1.2-10.7 Platelet count 0084500517) measured by fluorescence method. NRBC/100 WBC (test 0.6 See_Comment [Automat ed code = 3975247306) message] The system which generated this result transmitted reference range : 0.0 - 10.0 /100 WBCs. The refer ence range was not u sed to interpret th is result as normal/abnormal . NRBC x10^3 (test code 0.06 See_Comment [Auto mated = 2238845983) message] The s ystem which generated this result transmitted reference range : 10*3/?L. The reference range was not used to interpret this result as normal/abnormal . GRAN MAT (NEUT) % 80.9 % (test code = 770-8) IMM GRAN % (test code 4.80 % = 0493337155) LYMPH % (test code = 8.6 % 736-9) MONO % (test code = 5.6 % 5905-5) EOS % (test code = 0.0 % 713-8) BASO % (test code = 0.1 % 706-2) GRAN MAT x10^3(ANC) 7.91 10*3/uL 1.99-6.95 H (test code = 1146261947) IMM GRAN x10^3 (test 0.47 10*3/uL 0.00-0.06 H code = 8025955822) LYMPH x10^3 (test code 0.84 10*3/uL 1.09-3.23 L = 731-0) MONO x10^3 (test code 0.55 10*3/uL 0.36-1.02 = 742-7) EOS x10^3 (test code = 0.06-0.53 L 711-2) BASO x10^3 (test code 0.01-0.09 = 704-7) Lab Interpretation Abnormal (test code = 93595-5) [facility] WITH [id number] 05:33:25 Test Item Value Reference Range Interpretation [...] RDW-SD (test code = 50.4 fL 38.5-51.6 60570-0) RDW-CV (test code = 15.9 % 12.1-15.4 H 788-0) PLT (test code = 121 See_Comment L [Automated 777-3) message] The sy stem which generated this result transmitted reference range : 150 - 328 10*3/ ?L. The reference r mitra was not used to interpret this result as normal/abnormal . MPV (test code = 8.7 fL 9.8-13.0 L 26719-8) IPF % (test code = 2.3 % 1.2-10.7 Platelet count 5555092699) measured by fluorescence method. NRBC/100 WBC (test 0.6 See_Comment [Automat ed code = 0414173684) message] The system which generated this result transmitted reference range : 0.0 - 10.0 /100 WBCs. The refer ence range was not u sed to interpret th is result as normal/abnormal . NRBC x10^3 (test code 0.06 See_Comment [Auto mated = 4626042458) message] The s ystem which generated this result transmitted reference range : 10*3/?L. The reference range was not used to interpret this result as normal/abnormal . GRAN MAT (NEUT) % 80.9 % (test code = 770-8) IMM GRAN % (test code 4.80 % = 4769746726) LYMPH % (test code = 8.6 % 736-9) MONO % (test code = 5.6 % 5905-5) EOS % (test code = 0.0 % 713-8) BASO % (test code = 0.1 % 706-2) GRAN MAT x10^3(ANC) 7.91 10*3/uL 1.99-6.95 H (test code = 1235763619) IMM GRAN x10^3 (test 0.47 10*3/uL 0.00-0.06 H code = 5664962826) LYMPH x10^3 (test code 0.84 10*3/uL 1.09-3.23 L = 731-0) MONO x10^3 (test code 0.55 10*3/uL 0.36-1.02 = 742-7) EOS x10^3 (test code = 0.06-0.53 L 711-2) BASO x10^3 (test code 0.01-0.09 = 704-7) Lab Interpretation Abnormal (test code = 44092-8) [facility] METABOLIC PANEL (NA, K, CL, CO2, GLUCOSE, BUN, CREATININE, CA)2022-06-04 05:32:04 Test Item Value Reference Range Interpretation Comments NA (test code = 136 mmol/L 135-145 7635857665) K (test code = 4.1 mmol/L 3.5-5.0 5566192559) CL (test code = 104 mmol/L 98-108 0447341317) CO2 TOTAL (test code = 25 mmol/L 23-31 4466445592) AGAP (test code = 7 2-16 8712474279) BUN (test code = 19 mg/dL 7-23 9400265066) GLUCOSE (test code = 166 mg/dL 70-110 H 7101128656) CREATININE (test code = 1.00 mg/dL 0.60-1.25 8657460210) CALCIUM (test code = 8.8 mg/dL 8.6-10.6 9818965410) eGFR (test code = 76.5 mL/min/1.73m2 5449719170) DEWAYNE (test code = DEWAYNE) Association of [...] tests). Lab Interpretation Abnormal (test code = 69152-9) [facility] (NA, K, CL, CO2, GLUCOSE, BUN, CREATININE, CA)2022-06-04 05:32:04 Test Item Value Reference Range Interpretation Comments NA (test code = 136 mmol/L 135-145 7530034351) K (test code = 4.1 mmol/L 3.5-5.0 3245868571) CL (test code = 104 mmol/L 98-108 2050160804) CO2 TOTAL (test code = 25 mmol/L 23-31 7574387292) AGAP (test code = 7 2-16 9805984688) BUN (test code = 19 mg/dL 7-23 0449602305) GLUCOSE (test code = 166 mg/dL 70-110 H 0576746433) CREATININE (test code = 1.00 mg/dL 0.60-1.25 9332518332) CALCIUM (test code = 8.8 mg/dL 8.6-10.6 0695097040) eGFR (test code = 76.5 mL/min/1.73m2 9220559718) DEWAYNE (test code = DEWAYNE) Association of [...] tests). Lab Interpretation Abnormal (test code = 11309-1) [facility]22-[facility]-04 05:24:43 Test Item Value Reference Range Interpretation Comments APTT Patient (test code 105 See_Comment HH [Au tomated message] = 6043-2) The system [employer] generated this result transmitted ref erence range: 26 - 36 Seconds. The reference range was not used to int erpret this result as normal/abnormal . Lab Interpretation (test Abnormal code = 38268-5) [facility]22-[facility]-04 05:24:43 Test Item Value Reference Range Interpretation Comments APTT Patient (test code 105 See_Comment HH [Au tomated message] = 3173-2) The system [employer] generated this result transmitted ref erence range: 26 - 36 Seconds. The reference range was not used to int erpret this result as normal/abnormal . Lab Interpretation (test Abnormal code = 44646-5) [facility]-04 02:57:07 Test Item Value Reference Range Interpretation Comments PH (test code = 2) 7.31 7.35-7.45 L PCO2 (test code = 42 See_Comment [Automate d message] 5535635360) The system [employer] generated this result transmit elizabeth reference range : 35 - 45 mmHg. The reference range was not used to interpret this result as normal/abnormal . PO2 (test code = 144 See_Comment H [Automated message] 2449693510) The system [employer] generated this result transmit elizabeth reference range : 80 - 100 mmHg. The reference range was not used to interpret this result as normal/abnormal . HCO3 (test code = 21 See_Comment L [Automate d message] 3606796538) The system [employer] generated this result transmit elizabeth reference range : 22 - 26 mEq/L. The reference range was not used to interpret this result as normal/abnormal . BE (test code = -4.8 See_Comment L [Automated message] 0820255707) The system [employer] generated this result transmit elizabeth reference range : -3.0 - 3.0 mEq/ L. The reference r mitra was not used to interpret this result as normal/abnormal . THB (test code = 9.6 g/dL 13.5-18.0 L 4235799992) %O2HB (test code = 98.4 % 94.0-99.0 8869728913) %COHB ART (test code = 0.1 % 0.0-1.5 7744483405) %METHB ART (test code = 0.1 % 0.4-1.5 L 8964281056) VOL%O2 ART (test code = 13.6 % 15.0-23.0 L QUES 8392848726) NA (test code = 133 mmol/L 135-145 L 0649200776) K+ (test code = 4.6 mmol/L 3.5-5.0 0213194777) AC CA IONZ (test code = 4.40 mg/dL 4.50-5.30 L 7320348157) GLUCOSE (test code = 148 mg/dL 70-110 H 7579280903) Lab Interpretation Abnormal (test code = 10421-0) [facility]-04 02:57:07 Test Item Value Reference Range Interpretation Comments PH (test code = 2) 7.31 7.35-7.45 L PCO2 (test code = 42 See_Comment [Automate d message] 5392946752) The system [employer] generated this result transmit elizabeth reference range : 35 - 45 mmHg. The reference range was not used to interpret this result as normal/abnormal . PO2 (test code = 144 See_Comment H [Automated message] 3659045641) The system [employer] generated this result transmit elizabeth reference range : 80 - 100 mmHg. The reference range was not used to interpret this result as normal/abnormal . HCO3 (test code = 21 See_Comment L [Automate d message] 9886772042) The system [employer] generated this result transmit elizabeth reference range : 22 - 26 mEq/L. The reference range was not used to interpret this result as normal/abnormal . BE (test code = -4.8 See_Comment L [Automated message] 5516503489) The system [employer] generated this result transmit elizabeth reference range : -3.0 - 3.0 mEq/ L. The reference r mitra was not used to interpret this result as normal/abnormal . THB (test code = 9.6 g/dL 13.5-18.0 L 8905349185) %O2HB (test code = 98.4 % 94.0-99.0 5553954398) %COHB ART (test code = 0.1 % 0.0-1.5 5373479394) %METHB ART (test code = 0.1 % 0.4-1.5 L 4174737830) VOL%O2 ART (test code = 13.6 % 15.0-23.0 L QUES 3654681095) NA (test code = 133 mmol/L 135-145 L 1208209922) K+ (test code = 4.6 mmol/L 3.5-5.0 4317142781) AC CA IONZ (test code = 4.40 mg/dL 4.50-5.30 L 7917766913) GLUCOSE (test code = 148 mg/dL 70-110 H 9295804401) Lab Interpretation Abnormal (test code = 25751-6) [facility]-04 02:55:52 Test Item Value Reference Range Interpretation Comments PH (test code = 2) 7.31 7.35-7.45 L PCO2 (test code = 38 See_Comment [Automate d message] 4088724592) The system [employer] generated this result transmit elizabeth reference range : 35 - 45 mmHg. The reference range was not used to interpret this result as normal/abnormal . PO2 (test code = 180 See_Comment H [Automated message] 1136104057) The system [employer] generated this result transmit elizabeth reference range : 80 - 100 mmHg. The reference range was not used to interpret this result as normal/abnormal . HCO3 (test code = 19 See_Comment L [Automate d message] 3152623898) The system [employer] generated this result transmit elizabeth reference range : 22 - 26 mEq/L. The reference range was not used to interpret this result as normal/abnormal . BE (test code = -7.2 See_Comment L [Automated message] 1373733792) The system [employer] generated this result transmit elizabeth reference range : -3.0 - 3.0 mEq/ L. The reference r mitra was not used to interpret this result as normal/abnormal . THB (test code = 8.4 g/dL 13.5-18.0 L 5368643707) %O2HB (test code = 98.1 % 94.0-99.0 8520490378) %COHB ART (test code = 0.4 % 0.0-1.5 5673002870) %METHB ART (test code = 0.3 % 0.4-1.5 L 9890708152) VOL%O2 ART (test code = 12.0 % 15.0-23.0 L QUES 8527236069) NA (test code = 135 mmol/L 135-145 0422989868) K+ (test code = 4.1 mmol/L 3.5-5.0 9823325586) AC CA IONZ (test code = 4.90 mg/dL 4.50-5.30 4944035939) GLUCOSE (test code = 128 mg/dL 70-110 H 2992235168) Lab Interpretation Abnormal (test code = 78166-5) [facility]-04 02:55:52 Test Item Value Reference Range Interpretation Comments PH (test code = 2) 7.31 7.35-7.45 L PCO2 (test code = 38 See_Comment [Automate d message] 4185154521) The system [employer] generated this result transmit elizabeth reference range : 35 - 45 mmHg. The reference range was not used to interpret this result as normal/abnormal . PO2 (test code = 180 See_Comment H [Automated message] 8055697948) The system [employer] generated this result transmit elizabeth reference range : 80 - 100 mmHg. The reference range was not used to interpret this result as normal/abnormal . HCO3 (test code = 19 See_Comment L [Automate d message] 8390907090) The system [employer] generated this result transmit elizabeth reference range : 22 - 26 mEq/L. The reference range was not used to interpret this result as normal/abnormal . BE (test code = -7.2 See_Comment L [Automated message] 8110155326) The system [employer] generated this result transmit elizabeth reference range : -3.0 - 3.0 mEq/ L. The reference r mitra was not used to interpret this result as normal/abnormal . THB (test code = 8.4 g/dL 13.5-18.0 L 0718579106) %O2HB (test code = 98.1 % 94.0-99.0 1352132652) %COHB ART (test code = 0.4 % 0.0-1.5 8441894055) %METHB ART (test code = 0.3 % 0.4-1.5 L 1569720831) VOL%O2 ART (test code = 12.0 % 15.0-23.0 L QUES 9275425355) NA (test code = 135 mmol/L 135-145 0532101034) K+ (test code = 4.1 mmol/L 3.5-5.0 3537614608) AC CA IONZ (test code = 4.90 mg/dL 4.50-5.30 6135703095) GLUCOSE (test code = 128 mg/dL 70-110 H 1246158971) Lab Interpretation Abnormal (test code = 49577-6) [facility] [id number] 13:22:00 Test Item Value Reference Range Interpretation Comments ABO & RH (test code = 20) AB POSITIVE IAT (test code = 1185) Negative [facility] [id number] 13:22:00 Test Item Value Reference Range Interpretation Comments ABO & RH (test code = 20) AB POSITIVE IAT (test code = 1185) Negative [facility] [id number] 11:35:29 Test Item Value Reference Range Interpretation Comments WBC (test code = 11.02 See_Comment H [Automated 5090-2) message] The sy stem which generated this result transmitted reference range : 4.20 - 10.70 10*3/?L. The reference range was not used to interpret this result as normal/abnormal . RBC (test code = 3.21 See_Comment L [Automated 469-8) message] The sy stem which generated this [...] RDW-SD (test code = 50.8 fL 38.5-51.6 12350-9) RDW-CV (test code = 15.9 % 12.1-15.4 H 788-0) PLT (test code = 265 See_Comment [Automated 777-3) message] The sy stem which generated this result transmitted reference range : 150 - 328 10*3/ ?L. The reference r mitra was not used to interpret this result as normal/abnormal . MPV (test code = 9.0 fL 9.8-13.0 L 17897-7) NRBC/100 WBC (test 0.5 See_Comment [Automat ed code = 2097574275) message] The system which generated this result transmitted reference range : 0.0 - 10.0 /100 WBCs. The refer ence range was not u sed to interpret th is result as normal/abnormal . NRBC x10^3 (test code 0.06 See_Comment [Auto mated = 4438605774) message] The s ystem which generated this result transmitted reference range : 10*3/?L. The reference range was not used to interpret this result as normal/abnormal . GRAN MAT (NEUT) % 67.4 % (test code = 770-8) IMM GRAN % (test code 5.90 % = 9690160750) LYMPH % (test code = 13.6 % 736-9) MONO % (test code = 8.5 % 5905-5) EOS % (test code = 4.1 % 713-8) BASO % (test code = 0.5 % 706-2) GRAN MAT x10^3(ANC) 7.42 10*3/uL 1.99-6.95 H (test code = 0559686731) IMM GRAN x10^3 (test 0.65 10*3/uL 0.00-0.06 H code = 8471461616) LYMPH x10^3 (test code 1.50 10*3/uL 1.09-3.23 = 731-0) MONO x10^3 (test code 0.94 10*3/uL 0.36-1.02 = 742-7) EOS x10^3 (test code = 0.45 10*3/uL 0.06-0.53 711-2) BASO x10^3 (test code 0.06 10*3/uL 0.01-0.09 = 704-7) Lab Interpretation Abnormal (test code = 11375-6) [facility] WITH [id number] 11:35:29 Test Item Value Reference Range Interpretation [...] RDW-SD (test code = 50.8 fL 38.5-51.6 38522-9) RDW-CV (test code = 15.9 % 12.1-15.4 H 788-0) PLT (test code = 265 See_Comment [Automated 777-3) message] The sy stem which generated this result transmitted reference range : 150 - 328 10*3/ ?L. The reference r mitra was not used to interpret this result as normal/abnormal . MPV (test code = 9.0 fL 9.8-13.0 L 65772-5) NRBC/100 WBC (test 0.5 See_Comment [Automat ed code = 9831693092) message] The system which generated this result transmitted reference range : 0.0 - 10.0 /100 WBCs. The refer ence range was not u sed to interpret th is result as normal/abnormal . NRBC x10^3 (test code 0.06 See_Comment [Auto mated = 0545543807) message] The s ystem which generated this result transmitted reference range : 10*3/?L. The reference range was not used to interpret this result as normal/abnormal . GRAN MAT (NEUT) % 67.4 % (test code = 770-8) IMM GRAN % (test code 5.90 % = 4186771387) LYMPH % (test code = 13.6 % 736-9) MONO % (test code = 8.5 % 5905-5) EOS % (test code = 4.1 % 713-8) BASO % (test code = 0.5 % 706-2) GRAN MAT x10^3(ANC) 7.42 10*3/uL 1.99-6.95 H (test code = 3186977900) IMM GRAN x10^3 (test 0.65 10*3/uL 0.00-0.06 H code = 8816205003) LYMPH x10^3 (test code 1.50 10*3/uL 1.09-3.23 = 731-0) MONO x10^3 (test code 0.94 10*3/uL 0.36-1.02 = 742-7) EOS x10^3 (test code = 0.45 10*3/uL 0.06-0.53 711-2) BASO x10^3 (test code 0.06 10*3/uL 0.01-0.09 = 704-7) Lab Interpretation Abnormal (test code = 12391-7) [facility] 11[facility]30:46 Test Item Value Reference Range Interpretation Comments MAGNESIUM (test code = 8111955197) 2.4 mg/dL 1.7-2.4 Lab Interpretation (test code = Normal 16333-8) [facility] 11:30:46 Test Item Value Reference Range Interpretation Comments PHOSPHORUS (test code = 5497980492) 4.8 mg/dL 2.5-5.0 Lab Interpretation (test code = Normal 53614-8) [facility] (NA, K, CL, CO2, GLUCOSE, BUN, CREATININE, CA)2022-06-03 11:30:46 Test Item Value Reference Range Interpretation Comments NA (test code = 136 mmol/L 135-145 5868983384) K (test code = 4.2 mmol/L 3.5-5.0 2536411286) CL (test code = 104 mmol/L 98-108 6562365820) CO2 TOTAL (test code 26 mmol/L 23-31 = 5485100820) AGAP (test code = 6 2-16 9908107257) BUN (test code = 18 mg/dL 7-23 5971321375) GLUCOSE (test code = 103 mg/dL 70-110 4550586925) CREATININE (test code 1.08 mg/dL 0.60-1.25 = 1730569187) CALCIUM (test code = 8.7 mg/dL 8.6-10.6 1616592216) eGFR (test code = 70.0 mL/min/1.73m2 2298562213) DEWAYNE (test code = DEWAYNE) Association of [...] urine or abnormalities in imaging tests). [facility] 11:30:46 Test Item Value Reference Range Interpretation Comments MAGNESIUM (test code = 7698678518) 2.4 mg/dL 1.7-2.4 Lab Interpretation (test code = Normal 16119-3) [facility] 11:30:46 Test Item Value Reference Range Interpretation Comments PHOSPHORUS (test code = 7988540837) 4.8 mg/dL 2.5-5.0 Lab Interpretation (test code = Normal 31577-5) [facility] (NA, K, CL, CO2, GLUCOSE, BUN, CREATININE, CA)2022-06-03 11:30:46 Test Item Value Reference Range Interpretation Comments NA (test code = 136 mmol/L 135-145 1279780614) K (test code = 4.2 mmol/L 3.5-5.0 1360588172) CL (test code = 104 mmol/L 98-108 4584059651) CO2 TOTAL (test code 26 mmol/L 23-31 = 1827381241) AGAP (test code = 6 2-16 3272799924) BUN (test code = 18 mg/dL 7-23 9472722942) GLUCOSE (test code = 103 mg/dL 70-110 6384007880) CREATININE (test code 1.08 mg/dL 0.60-1.25 = 9273296480) CALCIUM (test code = 8.7 mg/dL 8.6-10.6 8955591411) eGFR (test code = 70.0 mL/min/1.73m2 8598453164) DEWAYNE (test code = DEWAYNE) Association of [...] or urine or abnormalities in imaging tests). [facility] (for use with Heparin Drip)2022-06-03 11:15:05 Test Item Value Reference Range Interpretation Comments APTT Patient (test code 52 See_Comment H [Au tomated message] = 3173-2) The system [employer] generated this result transmitted ref erence range: 26 - 36 Seconds. The reference range was not used to int erpret this result as normal/abnormal . Lab Interpretation (test Abnormal code = 74193-0) [facility] (for use with Heparin Drip)2022-06-03 11:15:05 Test Item Value Reference Range Interpretation Comments APTT Patient (test code 52 See_Comment H [Au tomated message] = 3173-2) The system [employer] generated this result transmitted ref erence range: 26 - 36 Seconds. The reference range was not used to int erpret this result as normal/abnormal . Lab Interpretation (test Abnormal code = 99559-9) [facility] METABOLIC PANEL (NA, K, CL, CO2, GLUCOSE, BUN, CREATININE, CA)2022-06-02 13:56:04 Test Item Value Reference Range Interpretation Comments NA (test code = 137 mmol/L 135-145 9260277935) K (test code = 4.4 mmol/L 3.5-5.0 9096300354) CL (test code = 105 mmol/L 98-108 1966582617) CO2 TOTAL (test code 27 mmol/L 23-31 = 7335585994) AGAP (test code = 5 2-16 5025611265) BUN (test code = 19 mg/dL 7-23 6718083824) GLUCOSE (test code = 92 mg/dL 70-110 8295952919) CREATININE (test code 0.96 mg/dL 0.60-1.25 = 5691864964) CALCIUM (test code = 8.7 mg/dL 8.6-10.6 4256759400) eGFR (test code = 80.2 mL/min/1.73m2 2112442336) DEWAYNE (test code = DEWAYNE) Association of [...] or urine or abnormalities in imaging tests). [facility] METABOLIC PANEL (NA, K, CL, CO2, GLUCOSE, BUN, CREATININE, CA)2022-06-02 13:56:04 Test Item Value Reference Range Interpretation Comments NA (test code = 137 mmol/L 135-145 3633371160) K (test code = 4.4 mmol/L 3.5-5.0 9104676181) CL (test code = 105 mmol/L 98-108 0915049901) CO2 TOTAL (test code 27 mmol/L 23-31 = 0531531061) AGAP (test code = 5 2-16 1030796623) BUN (test code = 19 mg/dL 7-23 5133092981) GLUCOSE (test code = 92 mg/dL 70-110 6127263057) CREATININE (test code 0.96 mg/dL 0.60-1.25 = 2182386568) CALCIUM (test code = 8.7 mg/dL 8.6-10.6 1942751870) eGFR (test code = 80.2 mL/min/1.73m2 7108399961) DEWAYNE (test code = DEWAYNE) Association of [...] or urine or abnormalities in imaging tests). [facility] WITH [id number] 11:30:12 Test Item Value Reference Range Interpretation [...] RDW-SD (test code = 50.1 fL 38.5-51.6 66946-1) RDW-CV (test code = 15.8 % 12.1-15.4 H 788-0) PLT (test code = 239 See_Comment [Automated 777-3) message] The sy stem which generated this result transmitted reference range : 150 - 328 10*3/ ?L. The reference r mitra was not used to interpret this result as normal/abnormal . MPV (test code = 9.1 fL 9.8-13.0 L 83938-3) NRBC/100 WBC (test 0.8 See_Comment [Automat ed code = 7622962152) message] The system which generated this result transmitted reference range : 0.0 - 10.0 /100 WBCs. The refer ence range was not u sed to interpret th is result as normal/abnormal . NRBC x10^3 (test code 0.07 See_Comment [Auto mated = 3363702668) message] The s ystem which generated this result transmitted reference range : 10*3/?L. The reference range was not used to interpret this result as normal/abnormal . GRAN MAT (NEUT) % 56.4 % (test code = 770-8) IMM GRAN % (test code 6.70 % = 9189583166) LYMPH % (test code = 23.9 % 736-9) MONO % (test code = 7.3 % 5905-5) EOS % (test code = 4.9 % 713-8) BASO % (test code = 0.8 % 706-2) GRAN MAT x10^3(ANC) 4.93 10*3/uL 1.99-6.95 (test code = 2902084557) IMM GRAN x10^3 (test 0.59 10*3/uL 0.00-0.06 H code = 9743085841) LYMPH x10^3 (test code 2.09 10*3/uL 1.09-3.23 = 731-0) MONO x10^3 (test code 0.64 10*3/uL 0.36-1.02 = 742-7) EOS x10^3 (test code = 0.43 10*3/uL 0.06-0.53 711-2) BASO x10^3 (test code 0.07 10*3/uL 0.01-0.09 = 704-7) Lab Interpretation Abnormal (test code = 95082-8) [facility] WITH [id number] 11:30:12 Test Item Value Reference Range Interpretation Comments WBC (test code = 8.75 See_Comment [Automated 2390-2) message] The sy stem which generated this result transmitted reference range : 4.20 - 10.70 10*3/?L. The reference range was not used to interpret this result as normal/abnormal . RBC (test code = 3.25 See_Comment L [Automated 919-8) message] The sy stem which generated this [...] RDW-SD (test code = 50.1 fL 38.5-51.6 83984-8) RDW-CV (test code = 15.8 % 12.1-15.4 H 788-0) PLT (test code = 239 See_Comment [Automated 777-3) message] The sy stem which generated this result transmitted reference range : 150 - 328 10*3/ ?L. The reference r mitra was not used to interpret this result as normal/abnormal . MPV (test code = 9.1 fL 9.8-13.0 L 64018-0) NRBC/100 WBC (test 0.8 See_Comment [Automat ed code = 2429190034) message] The system which generated this result transmitted reference range : 0.0 - 10.0 /100 WBCs. The refer ence range was not u sed to interpret th is result as normal/abnormal . NRBC x10^3 (test code 0.07 See_Comment [Auto mated = 6889134123) message] The s ystem which generated this result transmitted reference range : 10*3/?L. The reference range was not used to interpret this result as normal/abnormal . GRAN MAT (NEUT) % 56.4 % (test code = 770-8) IMM GRAN % (test code 6.70 % = 5954395745) LYMPH % (test code = 23.9 % 736-9) MONO % (test code = 7.3 % 5905-5) EOS % (test code = 4.9 % 713-8) BASO % (test code = 0.8 % 706-2) GRAN MAT x10^3(ANC) 4.93 10*3/uL 1.99-6.95 (test code = 5790663764) IMM GRAN x10^3 (test 0.59 10*3/uL 0.00-0.06 H code = 2089815825) LYMPH x10^3 (test code 2.09 10*3/uL 1.09-3.23 = 731-0) MONO x10^3 (test code 0.64 10*3/uL 0.36-1.02 = 742-7) EOS x10^3 (test code = 0.43 10*3/uL 0.06-0.53 711-2) BASO x10^3 (test code 0.07 10*3/uL 0.01-0.09 = 704-7) Lab Interpretation Abnormal (test code = 10914-4) [facility] 11:16:48 Test Item Value Reference Range Interpretation Comments MAGNESIUM (test code = 9814027585) 2.3 mg/dL 1.7-2.4 Lab Interpretation (test code = Normal 45017-7) [facility] 11:16:48 Test Item Value Reference Range Interpretation Comments PHOSPHORUS (test code = 8323383658) 4.8 mg/dL 2.5-5.0 Lab Interpretation (test code = Normal 23702-2) [facility] Test Item Value Reference Range Interpretation Comments MAGNESIUM (test code = 4763503917) 2.3 mg/dL 1.7-2.4 Lab Interpretation (test code = Normal 04653-9) [facility] 11:16:48 Test Item Value Reference Range Interpretation Comments PHOSPHORUS (test code = 7163731512) 4.8 mg/dL 2.5-5.0 Lab Interpretation (test code = Normal 68802-6) [facility] WITH [id number] 11:58:20 Test Item Value Reference Range Interpretation Comments WBC (test code = 9.20 See_Comment [Automated 5099-2) message] The sy stem which generated this result transmitted reference range : 4.20 - 10.70 10*3/?L. The reference range was not used to interpret this result as normal/abnormal . RBC (test code = 3.18 See_Comment L [Automated 147-7) message] The sy stem which generated this [...] RDW-SD (test code = 48.3 fL 38.5-51.6 29623-6) RDW-CV (test code = 15.2 % 12.1-15.4 788-0) PLT (test code = 181 See_Comment [Automated 777-3) message] The sy stem which generated this result transmitted reference range : 150 - 328 10*3/ ?L. The reference r mitra was not used to interpret this result as normal/abnormal . MPV (test code = 9.4 fL 9.8-13.0 L 92244-4) NRBC/100 WBC (test 0.3 See_Comment [Automat ed code = [id number]) message] The system which generated this result transmitted reference range : 0.0 - 10.0 /100 WBCs. The refer ence range was not u sed to interpret th is result as normal/abnormal . NRBC x10^3 (test code 0.03 See_Comment [Auto mated = [id number]) message] The s ystem which generated this result transmitted reference range : 10*3/?L. The reference range was not used to interpret this result as normal/abnormal . GRAN MAT (NEUT) % 59.7 % (test code = 770-8) IMM GRAN % (test code 5.80 % = 2039738616) LYMPH % (test code = 21.3 % 736-9) MONO % (test code = 8.7 % 5905-5) EOS % (test code = 4.1 % 713-8) BASO % (test code = 0.4 % 706-2) GRAN MAT x10^3(ANC) 5.49 10*3/uL 1.99-6.95 (test code = 6996451602) IMM GRAN x10^3 (test 0.53 10*3/uL 0.00-0.06 H code = 4801318773) LYMPH x10^3 (test code 1.96 10*3/uL 1.09-3.23 = 731-0) MONO x10^3 (test code 0.80 10*3/uL 0.36-1.02 = 742-7) EOS x10^3 (test code = 0.38 10*3/uL 0.06-0.53 711-2) BASO x10^3 (test code 0.04 10*3/uL 0.01-0.09 = 704-7) Lab Interpretation Abnormal (test code = 97777-1) [facility] WITH [id number] 11:58:20 Test Item Value Reference Range Interpretation Comments WBC (test code = 9.20 See_Comment [Automated 0390-2) message] The sy stem which generated this result transmitted reference range : 4.20 - 10.70 10*3/?L. The reference range was not used to interpret this result as normal/abnormal . RBC (test code = 3.18 See_Comment L [Automated 599-8) message] The sy stem which generated this [...] RDW-SD (test code = 48.3 fL 38.5-51.6 11514-8) RDW-CV (test code = 15.2 % 12.1-15.4 788-0) PLT (test code = 181 See_Comment [Automated 777-3) message] The sy stem which generated this result transmitted reference range : 150 - 328 10*3/ ?L. The reference r mitra was not used to interpret this result as normal/abnormal . MPV (test code = 9.4 fL 9.8-13.0 L 78965-6) NRBC/100 WBC (test 0.3 See_Comment [Automat ed code = 0680763177) message] The system which generated this result transmitted reference range : 0.0 - 10.0 /100 WBCs. The refer ence range was not u sed to interpret th is result as normal/abnormal . NRBC x10^3 (test code 0.03 See_Comment [Auto mated = 4399597321) message] The s ystem which generated this result transmitted reference range : 10*3/?L. The reference range was not used to interpret this result as normal/abnormal . GRAN MAT (NEUT) % 59.7 % (test code = 770-8) IMM GRAN % (test code 5.80 % = 1818386930) LYMPH % (test code = 21.3 % 736-9) MONO % (test code = 8.7 % 5905-5) EOS % (test code = 4.1 % 713-8) BASO % (test code = 0.4 % 706-2) GRAN MAT x10^3(ANC) 5.49 10*3/uL 1.99-6.95 (test code = 8283094708) IMM GRAN x10^3 (test 0.53 10*3/uL 0.00-0.06 H code = 1497674681) LYMPH x10^3 (test code 1.96 10*3/uL 1.09-3.23 = 731-0) MONO x10^3 (test code 0.80 10*3/uL 0.36-1.02 = 742-7) EOS x10^3 (test code = 0.38 10*3/uL 0.06-0.53 711-2) BASO x10^3 (test code 0.04 10*3/uL 0.01-0.09 = 704-7) Lab Interpretation Abnormal (test code = 09210-1) [facility] Test Item Value Reference Range Interpretation Comments MAGNESIUM (test code = 9436500170) 2.3 mg/dL 1.7-2.4 Lab Interpretation (test code = Normal 12350-6) [facility] 11:41:55 Test Item Value Reference Range Interpretation Comments PHOSPHORUS (test code = 8716714229) 3.4 mg/dL 2.5-5.0 Lab Interpretation (test code = Normal 86140-0) [facility]NA, K, CL, CO2, GLUCOSE, BUN, CREATININE, CA)2022-06-01 11:41:55 Test Item Value Reference Range Interpretation Comments NA (test code = 137 mmol/L 135-145 1490863618) K (test code = 4.1 mmol/L 3.5-5.0 4407887355) CL (test code = 105 mmol/L 98-108 2768047860) CO2 TOTAL (test code = 27 mmol/L 23-31 6457990644) AGAP (test code = 5 2-16 5404397117) BUN (test code = 17 mg/dL 7-23 3159502089) GLUCOSE (test code = 135 mg/dL 70-110 H 5925941370) CREATININE (test code = 0.84 mg/dL 0.60-1.25 2785286807) CALCIUM (test code = 8.4 mg/dL 8.6-10.6 L 5094557759) eGFR (test code = 93.5 mL/min/1.73m2 8374151010) DEWAYNE (test code = DEWAYNE) Association of [...] tests). Lab Interpretation Abnormal (test code = 26177-1) [facility] 11:[facility]:55 Test Item Value Reference Range Interpretation Comments MAGNESIUM (test code = 6946240996) 2.3 mg/dL 1.7-2.4 Lab Interpretation (test code = Normal 14980-8) [facility] 11:41:55 Test Item Value Reference Range Interpretation Comments PHOSPHORUS (test code = 1544469932) 3.4 mg/dL 2.5-5.0 Lab Interpretation (test code = Normal 24098-1) [facility] (NA, K, CL, CO2, GLUCOSE, BUN, CREATININE, CA)2022-06-01 11:41:55 Test Item Value Reference Range Interpretation Comments NA (test code = 137 mmol/L 135-145 2399807548) K (test code = 4.1 mmol/L 3.5-5.0 6260151798) CL (test code = 105 mmol/L 98-108 3720676808) CO2 TOTAL (test code = 27 mmol/L 23-31 9690915741) AGAP (test code = 5 2-16 4114024585) BUN (test code = 17 mg/dL 7-23 6900346933) GLUCOSE (test code = 135 mg/dL 70-110 H 3824945179) CREATININE (test code = 0.84 mg/dL 0.60-1.25 3319298928) CALCIUM (test code = 8.4 mg/dL 8.6-10.6 L 9459356581) eGFR (test code = 93.5 mL/min/1.73m2 5720860525) DEWAYNE (test code = DEWAYNE) Association of [...] tests). Lab Interpretation Abnormal (test code = 46554-5) [facility] WITH [id number] 12:02:32 Test Item Value Reference Range Interpretation Comments WBC (test code = 9.82 See_Comment [Automated 8411-2) message] The sy stem which generated this result transmitted reference range : 4.20 - 10.70 10*3/?L. The reference range was not used to interpret this result as normal/abnormal . RBC (test code = 3.82 See_Comment L [Automated 865-8) message] The sy stem which generated this [...] RDW-SD (test code = 46.6 fL 38.5-51.6 80532-8) RDW-CV (test code = 14.9 % 12.1-15.4 788-0) PLT (test code = 154 See_Comment [Automated 777-3) message] The sy stem which generated this result transmitted reference range : 150 - 328 10*3/ ?L. The reference r mitra was not used to interpret this result as normal/abnormal . MPV (test code = 9.5 fL 9.8-13.0 L 36476-3) NRBC/100 WBC (test 0.2 See_Comment [Automat ed code = 8579780548) message] The system which generated this result transmitted reference range : 0.0 - 10.0 /100 WBCs. The refer ence range was not u sed to interpret th is result as normal/abnormal . NRBC x10^3 (test code 0.02 See_Comment [Auto mated = 7008904141) message] The s ystem which generated this result transmitted reference range : 10*3/?L. The reference range was not used to interpret this result as normal/abnormal . GRAN MAT (NEUT) % 80.7 % (test code = 770-8) IMM GRAN % (test code 4.50 % = 3068607002) LYMPH % (test code = 6.5 % 736-9) MONO % (test code = 7.3 % 5905-5) EOS % (test code = 0.6 % 713-8) BASO % (test code = 0.4 % 706-2) GRAN MAT x10^3(ANC) 7.92 10*3/uL 1.99-6.95 H (test code = 0294009322) IMM GRAN x10^3 (test 0.44 10*3/uL 0.00-0.06 H code = 1096345317) LYMPH x10^3 (test code 0.64 10*3/uL 1.09-3.23 L = 731-0) MONO x10^3 (test code 0.72 10*3/uL 0.36-1.02 = 742-7) EOS x10^3 (test code = 0.06 10*3/uL 0.06-0.53 711-2) BASO x10^3 (test code 0.04 10*3/uL 0.01-0.09 = 704-7) MEAGHAN CELLS (test code 2+ See_Comment A [Auto mated = 6842-9) message] The sy stem which generated this result transmitted reference range : (none). The reference range was not used to interpret this result as normal/abnormal . REACT LYMPHS (test Rare code = 3572751410) Lab Interpretation Abnormal (test code = 36269-7) [facility] WITH [id number] 12:02:32 Test Item Value Reference Range Interpretation Comments WBC (test code = 9.82 See_Comment [Automated 6607-2) message] The sy stem which generated this result transmitted reference range : 4.20 - 10.70 10*3/?L. The reference range was not used to interpret this result as normal/abnormal . RBC (test code = 3.82 See_Comment L [Automated 439-8) message] The sy stem which generated this [...] RDW-SD (test code = 46.6 fL 38.5-51.6 72956-9) RDW-CV (test code = 14.9 % 12.1-15.4 788-0) PLT (test code = 154 See_Comment [Automated 397-3) message] The sy stem which generated this result transmitted reference range : 150 - 328 10*3/ ?L. The reference r mitra was not used to interpret this result as normal/abnormal . MPV (test code = 9.5 fL 9.8-13.0 L 22122-7) NRBC/100 WBC (test 0.2 See_Comment [Automat ed code = 5368438163) message] The system which generated this result transmitted reference range : 0.0 - 10.0 /100 WBCs. The refer ence range was not u sed to interpret th is result as normal/abnormal . NRBC x10^3 (test code 0.02 See_Comment [Auto mated = 9477804989) message] The s ystem which generated this result transmitted reference range : 10*3/?L. The reference range was not used to interpret this result as normal/abnormal . GRAN MAT (NEUT) % 80.7 % (test code = 770-8) IMM GRAN % (test code 4.50 % = 9961733389) LYMPH % (test code = 6.5 % 736-9) MONO % (test code = 7.3 % 5905-5) EOS % (test code = 0.6 % 713-8) BASO % (test code = 0.4 % 706-2) GRAN MAT x10^3(ANC) 7.92 10*3/uL 1.99-6.95 H (test code = 7793943720) IMM GRAN x10^3 (test 0.44 10*3/uL 0.00-0.06 H code = 1374129975) LYMPH x10^3 (test code 0.64 10*3/uL 1.09-3.23 L = 731-0) MONO x10^3 (test code 0.72 10*3/uL 0.36-1.02 = 742-7) EOS x10^3 (test code = 0.06 10*3/uL 0.06-0.53 711-2) BASO x10^3 (test code 0.04 10*3/uL 0.01-0.09 = 704-7) MEAGHAN CELLS (test code 2+ See_Comment A [Auto mated = 1371-3) message] The sy stem which generated this result transmitted reference range : (none). The reference range was not used to interpret this result as normal/abnormal . REACT LYMPHS (test Rare code = 5819463525) Lab Interpretation Abnormal (test code = 53820-8) [facility] WITH [id number] 12:02:32 Test Item Value Reference Range Interpretation [...] RDW-SD (test code = 46.6 fL 38.5-51.6 13090-1) RDW-CV (test code = 14.9 % 12.1-15.4 788-0) PLT (test code = 154 See_Comment [Automated 777-3) message] The sy stem which generated this result transmitted reference range : 150 - 328 10*3/ ?L. The reference r mitra was not used to interpret this result as normal/abnormal . MPV (test code = 9.5 fL 9.8-13.0 L 78876-9) NRBC/100 WBC (test 0.2 See_Comment [Automat ed code = 1942488965) message] The system which generated this result transmitted reference range : 0.0 - 10.0 /100 WBCs. The refer ence range was not u sed to interpret th is result as normal/abnormal . NRBC x10^3 (test code 0.02 See_Comment [Auto mated = 8109696214) message] The s ystem which generated this result transmitted reference range : 10*3/?L. The reference range was not used to interpret this result as normal/abnormal . GRAN MAT (NEUT) % 80.7 % (test code = 770-8) IMM GRAN % (test code 4.50 % = 4211022929) LYMPH % (test code = 6.5 % 736-9) MONO % (test code = 7.3 % 5905-5) EOS % (test code = 0.6 % 713-8) BASO % (test code = 0.4 % 706-2) GRAN MAT x10^3(ANC) 7.92 10*3/uL 1.99-6.95 H (test code = 6166286384) IMM GRAN x10^3 (test 0.44 10*3/uL 0.00-0.06 H code = 1075871971) LYMPH x10^3 (test code 0.64 10*3/uL 1.09-3.23 L = 731-0) MONO x10^3 (test code 0.72 10*3/uL 0.36-1.02 = 742-7) EOS x10^3 (test code = 0.06 10*3/uL 0.06-0.53 711-2) BASO x10^3 (test code 0.04 10*3/uL 0.01-0.09 = 704-7) MEAGHAN CELLS (test code 2+ See_Comment A [Auto mated = 4469-5) message] The sy stem which generated this result transmitted reference range : (none). The reference range was not used to interpret this result as normal/abnormal . REACT LYMPHS (test Rare code = 1602325504) Lab Interpretation Abnormal (test code = 53375-8) [facility]29 Test Item Value Reference Range Interpretation Comments MAGNESIUM (test code = 9491631559) 2.1 mg/dL 1.7-2.4 Lab Interpretation (test code = Normal 95984-4) [facility] 11:43:29 Test Item Value Reference Range Interpretation Comments PHOSPHORUS (test code = 7898257331) 3.7 mg/dL 2.5-5.0 Lab Interpretation (test code = Normal 09823-8) [facility] METABOLIC PANEL (NA, K, CL, CO2, GLUCOSE, BUN, CREATININE, CA)2022-05-31 11:43:29 Test Item Value Reference Range Interpretation Comments NA (test code = 133 mmol/L 135-145 L 9835442130) K (test code = 4.7 mmol/L 3.5-5.0 Slight 5970732436) hemolysis CL (test code = 104 mmol/L 98-108 4270156939) CO2 TOTAL (test code 25 mmol/L 23-31 = 5561138344) AGAP (test code = 4 2-16 7210425553) BUN (test code = 17 mg/dL 7-23 Slight 0326961194) hemolysis GLUCOSE (test code = 189 mg/dL 70-110 H 9883499746) CREATININE (test code 0.82 mg/dL 0.60-1.25 = 2394653059) CALCIUM (test code = 8.0 mg/dL 8.6-10.6 L 0480766557) eGFR (test code = 96.2 mL/min/1.73m2 2718606890) DEWAYNE (test code = DEWAYNE) Association of [...] tests). Lab Interpretation Abnormal (test code = 46717-0) [facility] 11:43:29 Test Item Value Reference Range Interpretation Comments MAGNESIUM (test code = 3466008476) 2.1 mg/dL 1.7-2.4 Lab Interpretation (test code = Normal 71159-4) [facility] 11:43:29 Test Item Value Reference Range Interpretation Comments PHOSPHORUS (test code = 8643947850) 3.7 mg/dL 2.5-5.0 Lab Interpretation (test code = Normal 06056-6) [facility] (NA, K, CL, CO2, GLUCOSE, BUN, CREATININE, CA)2022-05-31 11:43:29 Test Item Value Reference Range Interpretation Comments NA (test code = 133 mmol/L 135-145 L 7305714229) K (test code = 4.7 mmol/L 3.5-5.0 Slight 4334302940) hemolysis CL (test code = 104 mmol/L 98-108 6993740651) CO2 TOTAL (test code 25 mmol/L 23-31 = 5714490333) AGAP (test code = 4 2-16 9164406273) BUN (test code = 17 mg/dL 7-23 Slight 6698367478) hemolysis GLUCOSE (test code = 189 mg/dL 70-110 H 4793661748) CREATININE (test code 0.82 mg/dL 0.60-1.25 = 9018860618) CALCIUM (test code = 8.0 mg/dL 8.6-10.6 L 8014033867) eGFR (test code = 96.2 mL/min/1.73m2 9284093311) DEWAYNE (test code = DEWAYNE) Association of [...] tests). Lab Interpretation Abnormal (test code = 53957-9) [facility] 11:43:29 Test Item Value Reference Range Interpretation Comments MAGNESIUM (test code = 2184148214) 2.1 mg/dL 1.7-2.4 Lab Interpretation (test code = Normal 41183-3) [facility] 11:43:29 Test Item Value Reference Range Interpretation Comments PHOSPHORUS (test code = 2766513517) 3.7 mg/dL 2.5-5.0 Lab Interpretation (test code = Normal 31932-0) [facility] (NA, K, CL, CO2, GLUCOSE, BUN, CREATININE, CA)2022-05-31 11:43:29 Test Item Value Reference Range Interpretation Comments NA (test code = 133 mmol/L 135-145 L 7111446003) K (test code = 4.7 mmol/L 3.5-5.0 Slight 2195122459) hemolysis CL (test code = 104 mmol/L 98-108 5427970811) CO2 TOTAL (test code 25 mmol/L 23-31 = 5716439209) AGAP (test code = 4 2-16 2639763334) BUN (test code = 17 mg/dL 7-23 Slight 9515288115) hemolysis GLUCOSE (test code = 189 mg/dL 70-110 H 5428597056) CREATININE (test code 0.82 mg/dL 0.60-1.25 = 3856316452) CALCIUM (test code = 8.0 mg/dL 8.6-10.6 L 3444135227) eGFR (test code = 96.2 mL/min/1.73m2 1427049483) DEWAYNE (test code = DEWAYNE) Association of [...] tests). Lab Interpretation Abnormal (test code = 87336-2) [facility] 11:30:44 Test Item Value Reference Range Interpretation Comments Fibrinogen (test code = 7121641551) 218 mg/dL 167-453 Lab Interpretation (test code = Normal 77937-2) [facility] 11:30:44 Test Item Value Reference Range Interpretation Comments Fibrinogen (test code = 0356853387) 218 mg/dL 167-453 Lab Interpretation (test code = Normal 34396-9) [facility] 11:30:44 Test Item Value Reference Range Interpretation Comments Fibrinogen (test code = 0397777199) 218 mg/dL 167-453 Lab Interpretation (test code = Normal 48677-8) [facility] / [id number] 11:29:02 Test Item Value Reference Range Interpretation Comments PROTIME PATIENT (test 12.7 See_Comment H [Auto mated message] code = 5964-2) The system [employer] generated this result transmitted ref erence range: 10.1 - 1 2.6 Seconds. The reference range was not used to int erpret this result as normal/abnormal . INR (test code = 6301-6) 1.1 Nor mal INR <1.1; Warfarin Therap eutic range 2.0 to 3. 0 or 2.5 to 3.5, dep ending upon the indica tions. Lab Interpretation (test Abnormal code = 12590-8) [facility] 11:[facility]02 Test Item Value Reference Range Interpretation Comments APTT Patient (test code 82 See_Comment H [Au tomated message] = 3173-2) The system [employer] generated this result transmitted ref erence range: 26 - 36 Seconds. The reference range was not used to int erpret this result as normal/abnormal . Lab Interpretation (test Abnormal code = 77197-8) [facility] / [id number] 11:29:02 Test Item Value Reference Range Interpretation Comments PROTIME PATIENT (test 12.7 See_Comment H [Auto mated message] code = 5964-2) The system [employer] generated this result transmitted ref erence range: 10.1 - 1 2.6 Seconds. The reference range was not used to int erpret this result as normal/abnormal . INR (test code = 6301-6) 1.1 Nor mal INR <1.1; Warfarin Therap eutic range 2.0 to 3. 0 or 2.5 to 3.5, dep ending upon the indica tions. Lab Interpretation (test Abnormal code = 57389-2) [facility] 11:29:02 Test Item Value Reference Range Interpretation Comments APTT Patient (test code 82 See_Comment H [Au tomated message] = 3173-2) The system [employer] generated this result transmitted ref erence range: 26 - 36 Seconds. The reference range was not used to int erpret this result as normal/abnormal . Lab Interpretation (test Abnormal code = 65563-6) [facility] / [id number] 11:29:02 Test Item Value Reference Range Interpretation Comments PROTIME PATIENT (test 12.7 See_Comment H [Auto mated message] code = 5964-2) The system [employer] generated this result transmitted ref erence range: 10.1 - 1 2.6 Seconds. The reference range was not used to int erpret this result as normal/abnormal . INR (test code = 6301-6) 1.1 Nor mal INR <1.1; Warfarin Therap eutic range 2.0 to 3. 0 or 2.5 to 3.5, dep ending upon the indica tions. Lab Interpretation (test Abnormal code = 97116-4[facility] Test Item Value Reference Range Interpretation Comments APTT Patient (test code 82 See_Comment H [Au tomated message] = 3173-2) The system [employer] generated this result transmitted ref erence range: 26 - 36 Seconds. The reference range was not used to int erpret this result as normal/abnormal . Lab Interpretation (test Abnormal code = 78931-2) [facility] 02:12:17 Test Item Value Reference Range Interpretation Comments Fibrinogen (test code = 6808577400) 124 mg/dL 167-453 L Lab Interpretation (test code = Abnormal 15036-9) [facility] 02:12:17 Test Item Value Reference Range Interpretation Comments Fibrinogen (test code = 4769875585) 124 mg/dL 167-453 L Lab Interpretation (test code = Abnormal 39698-7) [facility]2023-04-18 02:12:17 Test Item Value Reference Range Interpretation Comments Fibrinogen (test code = 8493095146) 124 mg/dL 167-453 L Lab Interpretation (test code = Abnormal 07014-4) [facility]2023-04-17 22:27:11 Test Item Value Reference Range Interpretation Comments Fibrinogen (test code = 1317520045) 108 mg/dL 167-453 L Lab Interpretation (test code = Abnormal 39180-2) [facility]2023-04-17 22:27:11 Test Item Value Reference Range Interpretation Comments Fibrinogen (test code = 4904213572) 108 mg/dL 167-453 L Lab Interpretation (test code = Abnormal 71831-3) [address]04-17 22:27:11 Test Item Value Reference Range Interpretation Comments Fibrinogen (test code = 2780633040) 108 mg/dL 167-453 L Lab Interpretation (test code = Abnormal 09366-9) [facility]2023-04-17 18:54:36 Test Item Value Reference Range Interpretation Comments Fibrinogen (test code = 1551996814) 110 mg/dL 167-453 L Lab Interpretation (test code = Abnormal 20106-1) [facility]2023-04-17 18:54:36 Test Item Value Reference Range Interpretation Comments Fibrinogen (test code = 6828546256) 110 mg/dL 167-453 L Lab Interpretation (test code = Abnormal 06822-5) [facility]2023-04-17 18:54:36 Test Item Value Reference Range Interpretation Comments Fibrinogen (test code = 7639610203) 110 mg/dL 167-453 L Lab Interpretation (test code = Abnormal 91175-6) [facility]2023-04-17 18:54:36 Test Item Value Reference Range Interpretation Comments Fibrinogen (test code = 8663056499) 110 mg/dL 167-453 L Lab Interpretation (test code = Abnormal 90739-5) [facility]2023-04-17 15:54:43 Test Item Value Reference Range Interpretation Comments Fibrinogen (test code = 0095488880) 118 mg/dL 167-453 L Lab Interpretation (test code = Abnormal 89117-3) [facility]2023-04-17 15:54:43 Test Item Value Reference Range Interpretation Comments Fibrinogen (test code = 0510620759) 118 mg/dL 167-453 L Lab Interpretation (test code = Abnormal 76430-4) [facility]2023-04-17 15:54:43 Test Item Value Reference Range Interpretation Comments Fibrinogen (test code = 5122948254) 118 mg/dL 167-453 L Lab Interpretation (test code = Abnormal 56348-6) [facility]2023-04-17 15:54:43 Test Item Value Reference Range Interpretation Comments Fibrinogen (test code = 2957190677) 118 mg/dL 167-453 L Lab Interpretation (test code = Abnormal 20533-3) [facility]2023-04-17 13:43:27 Test Item Value Reference Range Interpretation Comments Fibrinogen (test code = 1438513166) 119 mg/dL 167-453 L Lab Interpretation (test code = Abnormal 14113-2) [facility]2023-04-17 13:43:27 Test Item Value Reference Range Interpretation Comments Fibrinogen (test code = 5108219808) 119 mg/dL 167-453 L Lab Interpretation (test code = Abnormal 99839-9) [facility]2023-04-17 13:43:27 Test Item Value Reference Range Interpretation Comments Fibrinogen (test code = 8690337978) 119 mg/dL 167-453 L Lab Interpretation (test code = Abnormal 71510-9) [facility]2023-04-17 13:43:27 Test Item Value Reference Range Interpretation Comments Fibrinogen (test code = 9622426852) 119 mg/dL 167-453 L Lab Interpretation (test code = Abnormal 90778-6) [facility]2023-04-17 11:50:10 Test Item Value Reference Range Interpretation Comments Fibrinogen (test code = 3613140897) 97 mg/dL 167-453 LL Lab Interpretation (test code = Abnormal 04798-1) [facility]2023-04-17 11:50:10 Test Item Value Reference Range Interpretation Comments Fibrinogen (test code = 7779347645) 97 mg/dL 167-453 LL Lab Interpretation (test code = Abnormal 47099-5) [facility] 11:50:10 Test Item Value Reference Range Interpretation Comments Fibrinogen (test code = 6703724154) 97 mg/dL 167-453 LL Lab Interpretation (test code = Abnormal 88451-3) [facility]10 Test Item Value Reference Range Interpretation Comments Fibrinogen (test code = 4595217120) 97 mg/dL 167-453 LL Lab Interpretation (test code = Abnormal 70829-6) [facility] WITH [id number] 10:13:04 Test Item Value Reference Range Interpretation [...] RDW-SD (test code = 45.3 fL 38.5-51.6 95537-4) RDW-CV (test code = 14.5 % 12.1-15.4 788-0) PLT (test code = 174 See_Comment [Automated 777-3) message] The sy stem which generated this result transmitted reference range : 150 - 328 10*3/ ?L. The reference r mitra was not used to interpret this result as normal/abnormal . MPV (test code = 8.9 fL 9.8-13.0 L 12596-0) NRBC/100 WBC (test 0.3 See_Comment [Automat ed code = 6642087775) message] The system which generated this result transmitted reference range : 0.0 - 10.0 /100 WBCs. The refer ence range was not u sed to interpret th is result as normal/abnormal . NRBC x10^3 (test code 0.03 See_Comment [Auto mated = 1911301862) message] The s ystem which generated this result transmitted reference range : 10*3/?L. The reference range was not used to interpret this result as normal/abnormal . GRAN MAT (NEUT) % 63.0 % (test code = 770-8) IMM GRAN % (test code 3.60 % = 8856772467) LYMPH % (test code = 17.5 % 736-9) MONO % (test code = 10.8 % 5905-5) EOS % (test code = 4.5 % 713-8) BASO % (test code = 0.6 % 706-2) GRAN MAT x10^3(ANC) 5.89 10*3/uL 1.99-6.95 (test code = 8421283790) IMM GRAN x10^3 (test 0.34 10*3/uL 0.00-0.06 H code = 7033195027) LYMPH x10^3 (test code 1.64 10*3/uL 1.09-3.23 = 731-0) MONO x10^3 (test code 1.01 10*3/uL 0.36-1.02 = 742-7) EOS x10^3 (test code = 0.42 10*3/uL 0.06-0.53 711-2) BASO x10^3 (test code 0.06 10*3/uL 0.01-0.09 = 704-7) REACT LYMPHS (test Rare code = 0168807799) Lab Interpretation Abnormal (test code = 18596-6) [facility] WITH [id number] 10:13:04 Test Item Value Reference Range Interpretation [...] RDW-SD (test code = 45.3 fL 38.5-51.6 46216-2) RDW-CV (test code = 14.5 % 12.1-15.4 788-0) PLT (test code = 174 See_Comment [Automated 777-3) message] The sy stem which generated this result transmitted reference range : 150 - 328 10*3/ ?L. The reference r mitra was not used to interpret this result as normal/abnormal . MPV (test code = 8.9 fL 9.8-13.0 L 76670-2) NRBC/100 WBC (test 0.3 See_Comment [Automat ed code = 4547407478) message] The system which generated this result transmitted reference range : 0.0 - 10.0 /100 WBCs. The refer ence range was not u sed to interpret th is result as normal/abnormal . NRBC x10^3 (test code 0.03 See_Comment [Auto mated = 5555265394) message] The s ystem which generated this result transmitted reference range : 10*3/?L. The reference range was not used to interpret this result as normal/abnormal . GRAN MAT (NEUT) % 63.0 % (test code = 770-8) IMM GRAN % (test code 3.60 % = 6644730395) LYMPH % (test code = 17.5 % 736-9) MONO % (test code = 10.8 % 5905-5) EOS % (test code = 4.5 % 713-8) BASO % (test code = 0.6 % 706-2) GRAN MAT x10^3(ANC) 5.89 10*3/uL 1.99-6.95 (test code = 7326768945) IMM GRAN x10^3 (test 0.34 10*3/uL 0.00-0.06 H code = 9821551550) LYMPH x10^3 (test code 1.64 10*3/uL 1.09-3.23 = 731-0) MONO x10^3 (test code 1.01 10*3/uL 0.36-1.02 = 742-7) EOS x10^3 (test code = 0.42 10*3/uL 0.06-0.53 711-2) BASO x10^3 (test code 0.06 10*3/uL 0.01-0.09 = 704-7) REACT LYMPHS (test Rare code = 9637419567) Lab Interpretation Abnormal (test code = 69101-6) [facility] WITH [id number] 10:13:04 Test Item Value Reference Range Interpretation Comments WBC (test code = 9.36 See_Comment [Automated 9690-2) message] The sy stem which generated this result transmitted reference range : 4.20 - 10.70 10*3/?L. The reference range was not used to interpret this result as normal/abnormal . RBC (test code = 4.03 See_Comment L [Automated 809-8) message] The sy stem which generated this [...] RDW-SD (test code = 45.3 fL 38.5-51.6 81972-7) RDW-CV (test code = 14.5 % 12.1-15.4 788-0) PLT (test code = 174 See_Comment [Automated 777-3) message] The sy stem which generated this result transmitted reference range : 150 - 328 10*3/ ?L. The reference r mitra was not used to interpret this result as normal/abnormal . MPV (test code = 8.9 fL 9.8-13.0 L 50735-2) NRBC/100 WBC (test 0.3 See_Comment [Automat ed code = 6309160520) message] The system which generated this result transmitted reference range : 0.0 - 10.0 /100 WBCs. The refer ence range was not u sed to interpret th is result as normal/abnormal . NRBC x10^3 (test code 0.03 See_Comment [Auto mated = 3976252695) message] The s ystem which generated this result transmitted reference range : 10*3/?L. The reference range was not used to interpret this result as normal/abnormal . GRAN MAT (NEUT) % 63.0 % (test code = 770-8) IMM GRAN % (test code 3.60 % = 5806906103) LYMPH % (test code = 17.5 % 736-9) MONO % (test code = 10.8 % 5905-5) EOS % (test code = 4.5 % 713-8) BASO % (test code = 0.6 % 706-2) GRAN MAT x10^3(ANC) 5.89 10*3/uL 1.99-6.95 (test code = 2839553533) IMM GRAN x10^3 (test 0.34 10*3/uL 0.00-0.06 H code = 3934838140) LYMPH x10^3 (test code 1.64 10*3/uL 1.09-3.23 = 731-0) MONO x10^3 (test code 1.01 10*3/uL 0.36-1.02 = 742-7) EOS x10^3 (test code = 0.42 10*3/uL 0.06-0.53 711-2) BASO x10^3 (test code 0.06 10*3/uL 0.01-0.09 = 704-7) REACT LYMPHS (test Rare code = 0831403959) Lab Interpretation Abnormal (test code = 94664-2) [facility] WITH [id number] 10:13:04 Test Item Value Reference Range Interpretation [...] RDW-SD (test code = 45.3 fL 38.5-51.6 31939-0) RDW-CV (test code = 14.5 % 12.1-15.4 788-0) PLT (test code = 174 See_Comment [Automated 777-3) message] The sy stem which generated this result transmitted reference range : 150 - 328 10*3/ ?L. The reference r mitra was not used to interpret this result as normal/abnormal . MPV (test code = 8.9 fL 9.8-13.0 L 81210-7) NRBC/100 WBC (test 0.3 See_Comment [Automat ed code = 7099872892) message] The system which generated this result transmitted reference range : 0.0 - 10.0 /100 WBCs. The refer ence range was not u sed to interpret th is result as normal/abnormal . NRBC x10^3 (test code 0.03 See_Comment [Auto mated = 7681432234) message] The s ystem which generated this result transmitted reference range : 10*3/?L. The reference range was not used to interpret this result as normal/abnormal . GRAN MAT (NEUT) % 63.0 % (test code = 770-8) IMM GRAN % (test code 3.60 % = 4200391805) LYMPH % (test code = 17.5 % 736-9) MONO % (test code = 10.8 % 5905-5) EOS % (test code = 4.5 % 713-8) BASO % (test code = 0.6 % 706-2) GRAN MAT x10^3(ANC) 5.89 10*3/uL 1.99-6.95 (test code = 7869231498) IMM GRAN x10^3 (test 0.34 10*3/uL 0.00-0.06 H code = 3104410748) LYMPH x10^3 (test code 1.64 10*3/uL 1.09-3.23 = 731-0) MONO x10^3 (test code 1.01 10*3/uL 0.36-1.02 = 742-7) EOS x10^3 (test code = 0.42 10*3/uL 0.06-0.53 711-2) BASO x10^3 (test code 0.06 10*3/uL 0.01-0.09 = 704-7) REACT LYMPHS (test Rare code = 1209057653) Lab Interpretation Abnormal (test code = 98909-0) [facility] Test Item Value Reference Range Interpretation Comments PHOSPHORUS (test code = 1676517654) 4.2 mg/dL 2.5-5.0 Lab Interpretation (test code = Normal 88147-6) [facility]:10:03 Test Item Value Reference Range Interpretation Comments MAGNESIUM (test code = 3432255070) 2.0 mg/dL 1.7-2.4 Lab Interpretation (test code = Normal 08795-6) [facility] METABOLIC PANEL (NA, K, CL, CO2, GLUCOSE, BUN, CREATININE, CA)2022-05-30 10:10:03 Test Item Value Reference Range Interpretation Comments NA (test code = 133 mmol/L 135-145 L 2805343854) K (test code = 3.9 mmol/L 3.5-5.0 2810514639) CL (test code = 103 mmol/L 98-108 0557301266) CO2 TOTAL (test code = 25 mmol/L 23-31 8266385464) AGAP (test code = 5 2-16 0438745579) BUN (test code = 22 mg/dL 7-23 2937378975) GLUCOSE (test code = 128 mg/dL 70-110 H 9877222858) CREATININE (test code = 0.87 mg/dL 0.60-1.25 7722643534) CALCIUM (test code = 8.2 mg/dL 8.6-10.6 L 5111934769) eGFR (test code = 89.8 mL/min/1.73m2 2089090238) DEWAYNE (test code = DEWAYNE) Association of [...] tests). Lab Interpretation Abnormal (test code = 83666-8) [facility] 10:10:03 Test Item Value Reference Range Interpretation Comments PHOSPHORUS (test code = 3581373442) 4.2 mg/dL 2.5-5.0 Lab Interpretation (test code = Normal 63320-2) [facility] 10:10:03 Test Item Value Reference Range Interpretation Comments MAGNESIUM (test code = 8144598792) 2.0 mg/dL 1.7-2.4 Lab Interpretation (test code = Normal 66949-8) [facility] (NA, K, CL, CO2, GLUCOSE, BUN, CREATININE, CA)2022-05-30 10:10:03 Test Item Value Reference Range Interpretation Comments NA (test code = 133 mmol/L 135-145 L 3883458696) K (test code = 3.9 mmol/L 3.5-5.0 8014895525) CL (test code = 103 mmol/L 98-108 7136350228) CO2 TOTAL (test code = 25 mmol/L 23-31 3562531519) AGAP (test code = 5 2-16 5633178366) BUN (test code = 22 mg/dL 7-23 0344690608) GLUCOSE (test code = 128 mg/dL 70-110 H 0716242944) CREATININE (test code = 0.87 mg/dL 0.60-1.25 6125971692) CALCIUM (test code = 8.2 mg/dL 8.6-10.6 L 6772493350) eGFR (test code = 89.8 mL/min/1.73m2 3077729916) DEWAYNE (test code = DEWAYNE) Association of [...] tests). Lab Interpretation Abnormal (test code = 10671-8) [facility] 10:10:03 Test Item Value Reference Range Interpretation Comments PHOSPHORUS (test code = 7789613180) 4.2 mg/dL 2.5-5.0 Lab Interpretation (test code = Normal 91001-7) [facility] 10:10:03 Test Item Value Reference Range Interpretation Comments MAGNESIUM (test code = 7914097307) 2.0 mg/dL 1.7-2.4 Lab Interpretation (test code = Normal 10812-9) [facility] (NA, K, CL, CO2, GLUCOSE, BUN, CREATININE, CA)2022-05-30 10:10:03 Test Item Value Reference Range Interpretation Comments NA (test code = 133 mmol/L 135-145 L 0718026328) K (test code = 3.9 mmol/L 3.5-5.0 8449777744) CL (test code = 103 mmol/L 98-108 0489277314) CO2 TOTAL (test code = 25 mmol/L 23-31 4775339170) AGAP (test code = 5 2-16 6998628709) BUN (test code = 22 mg/dL 7-23 2533867262) GLUCOSE (test code = 128 mg/dL 70-110 H 2394279851) CREATININE (test code = 0.87 mg/dL 0.60-1.25 0487286020) CALCIUM (test code = 8.2 mg/dL 8.6-10.6 L 2528335598) eGFR (test code = 89.8 mL/min/1.73m2 6024078469) DEWAYNE (test code = DEWAYNE) Association of [...] tests). Lab Interpretation Abnormal (test code = 51069-9) [facility] 10:10:03 Test Item Value Reference Range Interpretation Comments PHOSPHORUS (test code = 5406238007) 4.2 mg/dL 2.5-5.0 Lab Interpretation (test code = Normal 83787-9) [facility] 10:10:03 Test Item Value Reference Range Interpretation Comments MAGNESIUM (test code = 2978164808) 2.0 mg/dL 1.7-2.4 Lab Interpretation (test code = Normal 14399-9) [facility] (NA, K, CL, CO2, GLUCOSE, BUN, CREATININE, CA)2022-05-30 10:10:03 Test Item Value Reference Range Interpretation Comments NA (test code = 133 mmol/L 135-145 L 4601350868) K (test code = 3.9 mmol/L 3.5-5.0 8135403259) CL (test code = 103 mmol/L 98-108 4049537529) CO2 TOTAL (test code = 25 mmol/L 23-31 9123355437) AGAP (test code = 5 2-16 3104291459) BUN (test code = 22 mg/dL 7-23 6417808916) GLUCOSE (test code = 128 mg/dL 70-110 H 5545376204) CREATININE (test code = 0.87 mg/dL 0.60-1.25 9327058993) CALCIUM (test code = 8.2 mg/dL 8.6-10.6 L 3309735173) eGFR (test code = 89.8 mL/min/1.73m2 9432509984) DEWAYNE (test code = DEWAYNE) Association of [...] tests). Lab Interpretation Abnormal (test code = 02443-3) [facility]2023-04-17 09:52:38 Test Item Value Reference Range Interpretation Comments Fibrinogen (test code = 8009498926) 86 mg/dL 167-453 LL Lab Interpretation (test code = Abnormal 02972-2) [facility]2023-04-17 09:52:38 Test Item Value Reference Range Interpretation Comments Fibrinogen (test code = 9167827928) 86 mg/dL 167-453 LL Lab Interpretation (test code = Abnormal 21920-6) [facility]2023-04-17 09:52:38 Test Item Value Reference Range Interpretation Comments Fibrinogen (test code = 3497527503) 86 mg/dL 167-453 LL Lab Interpretation (test code = Abnormal 49971-9) [facility]2023-04-17 09:52:38 Test Item Value Reference Range Interpretation Comments Fibrinogen (test code = 7508008797) 86 mg/dL 167-453 LL Lab Interpretation (test code = Abnormal 62053-6) [place] [address]2023-04-17 09:51:57 Test Item Value Reference Range Interpretation Comments APTT Patient (test code 44 See_Comment H [Au tomated message] = 3173-2) The system [employer] generated this result transmitted ref erence range: 26 - 36 Seconds. The reference range was not used to int erpret this result as normal/abnormal . Lab Interpretation (test Abnormal code = 50260-9) [place] [address]2023-04-17 09:51:57 Test Item Value Reference Range Interpretation Comments APTT Patient (test code 44 See_Comment H [Au tomated message] = 3173-2) The system [employer] generated this result transmitted ref erence range: 26 - 36 Seconds. The reference range was not used to int erpret this result as normal/abnormal . Lab Interpretation (test Abnormal code = 13659-2) [place] [address]2023-04-17 09:51:57 Test Item Value Reference Range Interpretation Comments APTT Patient (test code 44 See_Comment H [Au tomated message] = 3173-2) The system [employer] generated this result transmitted ref erence range: 26 - 36 Seconds. The reference range was not used to int erpret this result as normal/abnormal . Lab Interpretation (test Abnormal code = 11483-3) [place] [address]2023-04-17 09:51:57 Test Item Value Reference Range Interpretation Comments APTT Patient (test code 44 See_Comment H [Au tomated message] = 3173-2) The system [employer] generated this result transmitted ref erence range: 26 - 36 Seconds. The reference range was not used to int erpret this result as normal/abnormal . Lab Interpretation (test Abnormal code = 16223-2) [facility] Test Item Value Reference Range Interpretation Comments Fibrinogen (test code = 0404248868) 73 mg/dL 167-453 LL Lab Interpretation (test code = Abnormal 04920-0) [facility] 07:28:55 Test Item Value Reference Range Interpretation Comments Fibrinogen (test code = 5463166713) 73 mg/dL 167-453 LL Lab Interpretation (test code = Abnormal 93379-9) [facility] Test Item Value Reference Range Interpretation Comments Fibrinogen (test code = 0648833508) 73 mg/dL 167-453 LL Lab Interpretation (test code = Abnormal 32966-4) [facility]:28:55 Test Item Value Reference Range Interpretation Comments Fibrinogen (test code = 0099211257) 73 mg/dL 167-453 LL Lab Interpretation (test code = Abnormal 91418-3) [facility] (for use with Heparin Drip)2022-05-30 06:39:14 Test Item Value Reference Range Interpretation Comments APTT Patient (test code 44 See_Comment H [Au tomated message] = 3173-2) The system [employer] generated this result transmitted ref erence range: 26 - 36 Seconds. The reference range was not used to int erpret this result as normal/abnormal . Lab Interpretation (test Abnormal code = 86036-8) [facility] (for use with Heparin Drip)2022-05-30 06:39:14 Test Item Value Reference Range Interpretation Comments APTT Patient (test code 44 See_Comment H [Au tomated message] = 3173-2) The system [employer] generated this result transmitted ref erence range: 26 - 36 Seconds. The reference range was not used to int erpret this result as normal/abnormal . Lab Interpretation (test Abnormal code = 52489-4) [facility] (for use with Heparin Drip)2022-05-30 06:39:14 Test Item Value Reference Range Interpretation Comments APTT Patient (test code 44 See_Comment H [Au tomated message] = 3173-2) The system [employer] generated this result transmitted ref erence range: 26 - 36 Seconds. The reference range was not used to int erpret this result as normal/abnormal . Lab Interpretation (test Abnormal code = 35841-9) [facility] (for use with Heparin Drip)2022-05-30 06:39:14 Test Item Value Reference Range Interpretation Comments APTT Patient (test code 44 See_Comment H [Au tomated message] = 3173-2) The system [employer] generated this result transmitted ref erence range: 26 - 36 Seconds. The reference range was not used to int erpret this result as normal/abnormal . Lab Interpretation (test Abnormal code = 54625-9) [facility]04 Test Item Value Reference Range Interpretation Comments Fibrinogen (test code = 6490898832) 71 mg/dL 167-453 LL Lab Interpretation (test code = Abnormal 91668-6) [facility]:26:04 Test Item Value Reference Range Interpretation Comments Fibrinogen (test code = 0982823849) 71 mg/dL 167-453 LL Lab Interpretation (test code = Abnormal 56795-3) [facility]2023-04-17 05:26:04 Test Item Value Reference Range Interpretation Comments Fibrinogen (test code = 1947990366) 71 mg/dL 167-453 LL Lab Interpretation (test code = Abnormal 48648-3) [facility]2023-04-17 05:26:04 Test Item Value Reference Range Interpretation Comments Fibrinogen (test code = 5537700214) 71 mg/dL 167-453 LL Lab Interpretation (test code = Abnormal 05410-3) [facility]2023-04-16 23:49:05 Test Item Value Reference Range Interpretation Comments Fibrinogen (test code = 5136854399) 98 mg/dL 167-453 LL Lab Interpretation (test code = Abnormal 32947-2) [facility]2023-04-16 23:49:05 Test Item Value Reference Range Interpretation Comments Fibrinogen (test code = 1601118148) 98 mg/dL 167-453 LL Lab Interpretation (test code = Abnormal 53187-9) [facility]2023-04-16 23:49:05 Test Item Value Reference Range Interpretation Comments Fibrinogen (test code = 2977018484) 98 mg/dL 167-453 LL Lab Interpretation (test code = Abnormal 25198-6) [facility]2023-04-16 23:49:05 Test Item Value Reference Range Interpretation Comments Fibrinogen (test code = 9097924531) 98 mg/dL 167-453 LL Lab Interpretation (test code = Abnormal 84434-6) [facility]2023-04-16 21:48:37 Test Item Value Reference Range Interpretation Comments Fibrinogen (test code = 9210447168) 113 mg/dL 167-453 L Lab Interpretation (test code = Abnormal 08425-1) [facility]2023-04-16 21:48:37 Test Item Value Reference Range Interpretation Comments Fibrinogen (test code = 8299100393) 113 mg/dL 167-453 L Lab Interpretation (test code = Abnormal 51271-9) [facility]2023-04-16 21:48:37 Test Item Value Reference Range Interpretation Comments Fibrinogen (test code = 8461070078) 113 mg/dL 167-453 L Lab Interpretation (test code = Abnormal 25852-1) [facility] Test Item Value Reference Range Interpretation Comments Fibrinogen (test code = 9229469843) 113 mg/dL 167-453 L Lab Interpretation (test code = Abnormal 18959-1) [facility] (NA, K, CL, CO2, GLUCOSE, BUN, CREATININE, CA)2022-05-29 15:33:06 Test Item Value Reference Range Interpretation Comments NA (test code = 139 mmol/L 135-145 6205064131) K (test code = 4.2 mmol/L 3.5-5.0 1380285350) CL (test code = 104 mmol/L 98-108 2917146636) CO2 TOTAL (test code = 29 mmol/L 23-31 3949672244) AGAP (test code = 6 2-16 2607513222) BUN (test code = 25 mg/dL 7-23 H 7075866493) GLUCOSE (test code = 85 mg/dL 70-110 2159423403) CREATININE (test code = 1.02 mg/dL 0.60-1.25 2484039106) CALCIUM (test code = 8.7 mg/dL 8.6-10.6 9482991216) eGFR (test code = 74.8 mL/min/1.73m2 9191394409) DEWAYNE (test code = DEWAYNE) Association of [...] tests). Lab Interpretation Abnormal (test code = 99438-6) [facility] METABOLIC PANEL (NA, K, CL, CO2, GLUCOSE, BUN, CREATININE, CA)2022-05-29 15:33:06 Test Item Value Reference Range Interpretation Comments NA (test code = 139 mmol/L 135-145 3494453416) K (test code = 4.2 mmol/L 3.5-5.0 5461077086) CL (test code = 104 mmol/L 98-108 7710345176) CO2 TOTAL (test code = 29 mmol/L 23-31 7990632410) AGAP (test code = 6 2-16 2485386268) BUN (test code = 25 mg/dL 7-23 H 3720307770) GLUCOSE (test code = 85 mg/dL 70-110 4552168569) CREATININE (test code = 1.02 mg/dL 0.60-1.25 2317156047) CALCIUM (test code = 8.7 mg/dL 8.6-10.6 1758200696) eGFR (test code = 74.8 mL/min/1.73m2 8557248702) DEWAYNE (test code = DEWAYNE) Association of [...] tests). Lab Interpretation Abnormal (test code = 10825-5) [facility] METABOLIC PANEL (NA, K, CL, CO2, GLUCOSE, BUN, CREATININE, CA)2022-05-29 15:33:06 Test Item Value Reference Range Interpretation Comments NA (test code = 139 mmol/L 135-145 5841124015) K (test code = 4.2 mmol/L 3.5-5.0 5390112991) CL (test code = 104 mmol/L 98-108 0568973261) CO2 TOTAL (test code = 29 mmol/L 23-31 2798729416) AGAP (test code = 6 2-16 0562524080) BUN (test code = 25 mg/dL 7-23 H 0812491895) GLUCOSE (test code = 85 mg/dL 70-110 0299387739) CREATININE (test code = 1.02 mg/dL 0.60-1.25 2894517045) CALCIUM (test code = 8.7 mg/dL 8.6-10.6 4140692811) eGFR (test code = 74.8 mL/min/1.73m2 0102117515) DEWAYNE (test code = DEWAYNE) Association of [...] tests). Lab Interpretation Abnormal (test code = 95129-5) [facility] METABOLIC PANEL (NA, K, CL, CO2, GLUCOSE, BUN, CREATININE, CA)2022-05-29 15:33:06 Test Item Value Reference Range Interpretation Comments NA (test code = 139 mmol/L 135-145 6670294430) K (test code = 4.2 mmol/L 3.5-5.0 6988176250) CL (test code = 104 mmol/L 98-108 0121325876) CO2 TOTAL (test code = 29 mmol/L 23-31 9778204096) AGAP (test code = 6 2-16 3397913506) BUN (test code = 25 mg/dL 7-23 H 5389458104) GLUCOSE (test code = 85 mg/dL 70-110 2368980055) CREATININE (test code = 1.02 mg/dL 0.60-1.25 8263715131) CALCIUM (test code = 8.7 mg/dL 8.6-10.6 3713086736) eGFR (test code = 74.8 mL/min/1.73m2 4111818973) DEWAYNE (test code = DEWAYNE) Association of [...] tests). Lab Interpretation Abnormal (test code = 88658-3) [facility]2023-04-16 15:15:42 Test Item Value Reference Range Interpretation Comments Fibrinogen (test code = 5207658932) 368 mg/dL 167-453 Lab Interpretation (test code = Normal 32367-4) [facility] Test Item Value Reference Range Interpretation Comments Fibrinogen (test code = 8915698372) 368 mg/dL 167-453 Lab Interpretation (test code = Normal 05585-3) [facility]2023-04-16 15:15:42 Test Item Value Reference Range Interpretation Comments Fibrinogen (test code = 1573997291) 368 mg/dL 167-453 Lab Interpretation (test code = Normal 77062-7) [facility] Test Item Value Reference Range Interpretation Comments Fibrinogen (test code = 5042754383) 368 mg/dL 167-453 Lab Interpretation (test code = Normal 53691-8) [facility] WITH [id number] 15:09:40 Test Item Value Reference Range Interpretation [...] RDW-SD (test code = 47.6 fL 38.5-51.6 82147-7) RDW-CV (test code = 14.7 % 12.1-15.4 788-0) PLT (test code = 252 See_Comment [Automated 777-3) message] The sy stem which generated this result transmitted reference range : 150 - 328 10*3/ ?L. The reference r mitra was not used to interpret this result as normal/abnormal . MPV (test code = 9.1 fL 9.8-13.0 L 73308-6) NRBC/100 WBC (test 0.0 See_Comment [Automat ed code = 4755673369) message] The system which generated this result transmitted reference range : 0.0 - 10.0 /100 WBCs. The refer ence range was not u sed to interpret th is result as normal/abnormal . NRBC x10^3 (test code See_Comment [Auto mated = 5669360370) message] The s ystem which generated this result transmitted reference range : 10*3/?L. The reference range was not used to interpret this result as normal/abnormal . GRAN MAT (NEUT) % 53.7 % (test code = 770-8) IMM GRAN % (test code 1.90 % = 3984243323) LYMPH % (test code = 29.6 % 736-9) MONO % (test code = 8.1 % 5905-5) EOS % (test code = 5.7 % 713-8) BASO % (test code = 1.0 % 706-2) GRAN MAT x10^3(ANC) 4.44 10*3/uL 1.99-6.95 (test code = 2160757845) IMM GRAN x10^3 (test 0.16 10*3/uL 0.00-0.06 H code = 0067269414) LYMPH x10^3 (test code 2.45 10*3/uL 1.09-3.23 = 731-0) MONO x10^3 (test code 0.67 10*3/uL 0.36-1.02 = 742-7) EOS x10^3 (test code = 0.47 10*3/uL 0.06-0.53 711-2) BASO x10^3 (test code 0.08 10*3/uL 0.01-0.09 = 704-7) Lab Interpretation Abnormal (test code = 80275-2) [facility] WITH [id number] 15:09:40 Test Item Value Reference Range Interpretation Comments WBC (test code = 8.27 See_Comment [Automated 8390-2) message] The sy stem which generated this result transmitted reference range : 4.20 - 10.70 10*3/?L. The reference range was not used to interpret this result as normal/abnormal . RBC (test code = 4.18 See_Comment L [Automated 219-8) message] The sy stem which generated this [...] RDW-SD (test code = 47.6 fL 38.5-51.6 64121-2) RDW-CV (test code = 14.7 % 12.1-15.4 788-0) PLT (test code = 252 See_Comment [Automated 777-3) message] The sy stem which generated this result transmitted reference range : 150 - 328 10*3/ ?L. The reference r mitra was not used to interpret this result as normal/abnormal . MPV (test code = 9.1 fL 9.8-13.0 L 45659-2) NRBC/100 WBC (test 0.0 See_Comment [Automat ed code = 1831234651) message] The system which generated this result transmitted reference range : 0.0 - 10.0 /100 WBCs. The refer ence range was not u sed to interpret th is result as normal/abnormal . NRBC x10^3 (test code See_Comment [Auto mated = 1399895732) message] The s ystem which generated this result transmitted reference range : 10*3/?L. The reference range was not used to interpret this result as normal/abnormal . GRAN MAT (NEUT) % 53.7 % (test code = 770-8) IMM GRAN % (test code 1.90 % = 7596168709) LYMPH % (test code = 29.6 % 736-9) MONO % (test code = 8.1 % 5905-5) EOS % (test code = 5.7 % 713-8) BASO % (test code = 1.0 % 706-2) GRAN MAT x10^3(ANC) 4.44 10*3/uL 1.99-6.95 (test code = 5969274488) IMM GRAN x10^3 (test 0.16 10*3/uL 0.00-0.06 H code = 7960238054) LYMPH x10^3 (test code 2.45 10*3/uL 1.09-3.23 = 731-0) MONO x10^3 (test code 0.67 10*3/uL 0.36-1.02 = 742-7) EOS x10^3 (test code = 0.47 10*3/uL 0.06-0.53 711-2) BASO x10^3 (test code 0.08 10*3/uL 0.01-0.09 = 704-7) Lab Interpretation Abnormal (test code = 34855-5) [facility] WITH [id number] 15:09:40 Test Item Value Reference Range Interpretation Comments WBC (test code = 8.27 See_Comment [Automated 6190-2) message] The sy stem which generated this result transmitted reference range : 4.20 - 10.70 10*3/?L. The reference range was not used to interpret this result as normal/abnormal . RBC (test code = 4.18 See_Comment L [Automated 949-8) message] The sy stem which generated this [...] RDW-SD (test code = 47.6 fL 38.5-51.6 37441-8) RDW-CV (test code = 14.7 % 12.1-15.4 788-0) PLT (test code = 252 See_Comment [Automated 787-3) message] The sy stem which generated this result transmitted reference range : 150 - 328 10*3/ ?L. The reference r mitra was not used to interpret this result as normal/abnormal . MPV (test code = 9.1 fL 9.8-13.0 L 67568-3) NRBC/100 WBC (test 0.0 See_Comment [Automat ed code = 7282676812) message] The system which generated this result transmitted reference range : 0.0 - 10.0 /100 WBCs. The refer ence range was not u sed to interpret th is result as normal/abnormal . NRBC x10^3 (test code See_Comment [Auto mated = 4293942302) message] The s ystem which generated this result transmitted reference range : 10*3/?L. The reference range was not used to interpret this result as normal/abnormal . GRAN MAT (NEUT) % 53.7 % (test code = 770-8) IMM GRAN % (test code 1.90 % = 8431589639) LYMPH % (test code = 29.6 % 736-9) MONO % (test code = 8.1 % 5905-5) EOS % (test code = 5.7 % 713-8) BASO % (test code = 1.0 % 706-2) GRAN MAT x10^3(ANC) 4.44 10*3/uL 1.99-6.95 (test code = 0215408898) IMM GRAN x10^3 (test 0.16 10*3/uL 0.00-0.06 H code = 5695762761) LYMPH x10^3 (test code 2.45 10*3/uL 1.09-3.23 = 731-0) MONO x10^3 (test code 0.67 10*3/uL 0.36-1.02 = 742-7) EOS x10^3 (test code = 0.47 10*3/uL 0.06-0.53 711-2) BASO x10^3 (test code 0.08 10*3/uL 0.01-0.09 = 704-7) Lab Interpretation Abnormal (test code = 41920-9) [facility] WITH [id number] 15:09:40 Test Item Value Reference Range Interpretation [...] RDW-SD (test code = 47.6 fL 38.5-51.6 31079-3) RDW-CV (test code = 14.7 % 12.1-15.4 788-0) PLT (test code = 252 See_Comment [Automated 777-3) message] The sy stem which generated this result transmitted reference range : 150 - 328 10*3/ ?L. The reference r mitra was not used to interpret this result as normal/abnormal . MPV (test code = 9.1 fL 9.8-13.0 L 73251-6) NRBC/100 WBC (test 0.0 See_Comment [Automat ed code = 7630103137) message] The system which generated this result transmitted reference range : 0.0 - 10.0 /100 WBCs. The refer ence range was not u sed to interpret th is result as normal/abnormal . NRBC x10^3 (test code See_Comment [Auto mated = 4607670257) message] The s ystem which generated this result transmitted reference range : 10*3/?L. The reference range was not used to interpret this result as normal/abnormal . GRAN MAT (NEUT) % 53.7 % (test code = 770-8) IMM GRAN % (test code 1.90 % = 7103093846) LYMPH % (test code = 29.6 % 736-9) MONO % (test code = 8.1 % 5905-5) EOS % (test code = 5.7 % 713-8) BASO % (test code = 1.0 % 706-2) GRAN MAT x10^3(ANC) 4.44 10*3/uL 1.99-6.95 (test code = 2673475099) IMM GRAN x10^3 (test 0.16 10*3/uL 0.00-0.06 H code = 8234808356) LYMPH x10^3 (test code 2.45 10*3/uL 1.09-3.23 = 731-0) MONO x10^3 (test code 0.67 10*3/uL 0.36-1.02 = 742-7) EOS x10^3 (test code = 0.47 10*3/uL 0.06-0.53 711-2) BASO x10^3 (test code 0.08 10*3/uL 0.01-0.09 = 704-7) Lab Interpretation Abnormal (test code = 53542-2) [facility] (for use with Heparin Infusion)2022-05-29 11:36:15 Test Item Value Reference Range Interpretation Comments APTT Patient (test code 52 See_Comment H [Au tomated message] = 3173-2) The system [employer] generated this result transmitted ref erence range: 26 - 36 Seconds. The reference range was not used to int erpret this result as normal/abnormal . Lab Interpretation (test Abnormal code = 52464-3) [facility] (for use with Heparin Infusion)2022-05-29 11:36:15 Test Item Value Reference Range Interpretation Comments APTT Patient (test code 52 See_Comment H [Au tomated message] = 3173-2) The system [employer] generated this result transmitted ref erence range: 26 - 36 Seconds. The reference range was not used to int erpret this result as normal/abnormal . Lab Interpretation (test Abnormal code = 16721-3) [facility] (for use with Heparin Infusion)2022-05-29 11:36:15 Test Item Value Reference Range Interpretation Comments APTT Patient (test code 52 See_Comment H [Au tomated message] = 3173-2) The system [employer] generated this result transmitted ref erence range: 26 - 36 Seconds. The reference range was not used to int erpret this result as normal/abnormal . Lab Interpretation (test Abnormal code = 07788-3) [facility] 11:36:15 Test Item Value Reference Range Interpretation Comments APTT Patient (test code 52 See_Comment H [Au tomated message] = 1203-2) The system [employer] generated this result transmitted ref erence range: 26 - 36 Seconds. The reference range was not used to int erpret this result as normal/abnormal . Lab Interpretation (test Abnormal code = 09471-7) [facility] METABOLIC PANEL (NA, K, CL, CO2, GLUCOSE, BUN, CREATININE, CA)2022-05-29 11:35:55 Test Item Value Reference Range Interpretation Comments NA (test code = 136 mmol/L 135-145 6208273189) K (test code = 4.9 mmol/L 3.5-5.0 Slight 4087514399) hemolysis CL (test code = 106 mmol/L 98-108 6930112473) CO2 TOTAL (test code 28 mmol/L 23-31 = 2686045052) AGAP (test code = 2 2-16 7767237921) BUN (test code = 26 mg/dL 7-23 H Slight 0009289564) hemolysis GLUCOSE (test code = 88 mg/dL 70-110 5453747064) CREATININE (test code 0.86 mg/dL 0.60-1.25 = 6223662511) CALCIUM (test code = 8.4 mg/dL 8.6-10.6 L 4159592529) eGFR (test code = 91.0 mL/min/1.73m2 3604287301) DEWAYNE (test code = DEWAYNE) Association of [...] tests). Lab Interpretation Abnormal (test code = 38248-3) [facility]:55 Test Item Value Reference Range Interpretation Comments MAGNESIUM (test code = 1741280823) 2.4 mg/dL 1.7-2.4 Lab Interpretation (test code = Normal 65672-7) [facility] (NA, K, CL, CO2, GLUCOSE, BUN, CREATININE, CA)2022-05-29 11:35:55 Test Item Value Reference Range Interpretation Comments NA (test code = 136 mmol/L 135-145 2788493643) K (test code = 4.9 mmol/L 3.5-5.0 Slight 0675319964) hemolysis CL (test code = 106 mmol/L 98-108 3537853706) CO2 TOTAL (test code 28 mmol/L 23-31 = 6897570760) AGAP (test code = 2 2-16 9954905880) BUN (test code = 26 mg/dL 7-23 H Slight 8858117662) hemolysis GLUCOSE (test code = 88 mg/dL 70-110 2467956622) CREATININE (test code 0.86 mg/dL 0.60-1.25 = 4155528486) CALCIUM (test code = 8.4 mg/dL 8.6-10.6 L 3012039721) eGFR (test code = 91.0 mL/min/1.73m2 3662326809) DEWAYNE (test code = DEWAYNE) Association of [...] tests). Lab Interpretation Abnormal (test code = 33360-9) [facility] 11:35:55 Test Item Value Reference Range Interpretation Comments MAGNESIUM (test code = 3490830634) 2.4 mg/dL 1.7-2.4 Lab Interpretation (test code = Normal 22766-2) [facility] (NA, K, CL, CO2, GLUCOSE, BUN, CREATININE, CA)2022-05-29 11:35:55 Test Item Value Reference Range Interpretation Comments NA (test code = 136 mmol/L 135-145 5338481936) K (test code = 4.9 mmol/L 3.5-5.0 Slight 7041446215) hemolysis CL (test code = 106 mmol/L 98-108 2027821874) CO2 TOTAL (test code 28 mmol/L 23-31 = 5864628388) AGAP (test code = 2 2-16 6995008964) BUN (test code = 26 mg/dL 7-23 H Slight 9408664049) hemolysis GLUCOSE (test code = 88 mg/dL 70-110 3876771163) CREATININE (test code 0.86 mg/dL 0.60-1.25 = 2132542677) CALCIUM (test code = 8.4 mg/dL 8.6-10.6 L 5959417744) eGFR (test code = 91.0 mL/min/1.73m2 1635397937) DEWAYNE (test code = DEWAYNE) Association of [...] tests). Lab Interpretation Abnormal (test code = 16937-0) [facility] Test Item Value Reference Range Interpretation Comments MAGNESIUM (test code = 8069885888) 2.4 mg/dL 1.7-2.4 Lab Interpretation (test code = Normal 68531-5) [facility] METABOLIC PANEL (NA, K, CL, CO2, GLUCOSE, BUN, CREATININE, CA)2022-05-29 11:35:55 Test Item Value Reference Range Interpretation Comments NA (test code = 136 mmol/L 135-145 0669532669) K (test code = 4.9 mmol/L 3.5-5.0 Slight 1521182576) hemolysis CL (test code = 106 mmol/L 98-108 6592071523) CO2 TOTAL (test code 28 mmol/L 23-31 = 1747510680) AGAP (test code = 2 2-16 8742231317) BUN (test code = 26 mg/dL 7-23 H Slight 2731731991) hemolysis GLUCOSE (test code = 88 mg/dL 70-110 7134362404) CREATININE (test code 0.86 mg/dL 0.60-1.25 = 1213657917) CALCIUM (test code = 8.4 mg/dL 8.6-10.6 L 7762928620) eGFR (test code = 91.0 mL/min/1.73m2 2963104671) DEWAYNE (test code = DEWAYNE) Association of [...] tests). Lab Interpretation Abnormal (test code = 28691-4) [facility] 11:35:55 Test Item Value Reference Range Interpretation Comments MAGNESIUM (test code = 5485102165) 2.4 mg/dL 1.7-2.4 Lab Interpretation (test code = Normal 92995-1) [facility] [id number] 11:28:31 Test Item Value Reference Range Interpretation Comments WBC (test code = 6690-2) 7.81 See_Comment [A utomated message] The system [employer] generated this result transmit elizabeth reference range : 4.20 - 10.70 10*3/?L. The reference range was not used to interpret this result as normal/abnormal . RBC (test code = 789-8) 4.04 See_Comment L [Au tomated message] The system [employer] generated this result transmit elizabeth reference range [...] 252 See_Comment [Au tomated message] The system [employer] generated this result transmit elizabeth reference range : 150 - 328 10*3/?L. The reference range was not used to interpret this result as normal/abnormal . MPV (test code = 9.6 fL 9.8-13.0 L 75698-5) RDW-CV (test code = 14.6 % 12.1-15.4 788-0) RDW-SD (test code = 46.5 fL 38.5-51.6 66004-7) NRBC x10^3 (test code = See_Comment [Au tomated message] 2734821705) The system [employer] generated this result transmit elizabeth reference range : 10*3/?L. The reference range was not used to interpret this result as normal/abnormal . NRBC/100 WBC (test code 0.0 See_Comment [Au tomated message] = 9750150029) The system [employer] generated this result transmit elizabeth reference range : 0.0 - 10.0 /100 WBC s. The reference r mitra was not used to interpret this result as normal/abnormal . IPF % (test code = 4663524364) Lab Interpretation (test Abnormal code = 56341-5) [facility] Without [id number] 11:28:31 Test Item Value Reference Range Interpretation Comments WBC (test code = 6690-2) 7.81 See_Comment [A utomated message] The system [employer] generated this result transmit elizabeth reference range : 4.20 - 10.70 10*3/?L. The reference range was not used to interpret this result as normal/abnormal . RBC (test code = 789-8) 4.04 See_Comment L [Au tomated message] The system [employer] generated this result transmit elizabeth reference range [...] 252 See_Comment [Au tomated message] The system [employer] generated this result transmit elizabeth reference range : 150 - 328 10*3/?L. The reference range was not used to interpret this result as normal/abnormal . MPV (test code = 9.6 fL 9.8-13.0 L 17666-2) RDW-CV (test code = 14.6 % 12.1-15.4 788-0) RDW-SD (test code = 46.5 fL 38.5-51.6 43650-5) NRBC x10^3 (test code = See_Comment [Au tomated message] 7690322946) The system [employer] generated this result transmit elizabeth reference range : 10*3/?L. The reference range was not used to interpret this result as normal/abnormal . NRBC/100 WBC (test code 0.0 See_Comment [Au tomated message] = 7355297621) The system [employer] generated this result transmit elizabeth reference range : 0.0 - 10.0 /100 WBC s. The reference r mitra was not used to interpret this result as normal/abnormal . IPF % (test code = 2617560401) Lab Interpretation (test Abnormal code = 32336-3) [facility] Without [id number] 11:28:31 Test Item Value Reference Range Interpretation Comments WBC (test code = 6690-2) 7.81 See_Comment [A utomated message] The system [employer] generated this result transmit elizabeth reference range : 4.20 - 10.70 10*3/?L. The reference range was not used to interpret this result as normal/abnormal . RBC (test code = 789-8) 4.04 See_Comment L [Au tomated message] The system [employer] generated this result transmit elizabeth reference range [...] 252 See_Comment [Au tomated message] The system [employer] generated this result transmit elizabeth reference range : 150 - 328 10*3/?L. The reference range was not used to interpret this result as normal/abnormal . MPV (test code = 9.6 fL 9.8-13.0 L 89107-4) RDW-CV (test code = 14.6 % 12.1-15.4 788-0) RDW-SD (test code = 46.5 fL 38.5-51.6 16784-5) NRBC x10^3 (test code = See_Comment [Au tomated message] 4906359778) The system [employer] generated this result transmit elizabeth reference range : 10*3/?L. The reference range was not used to interpret this result as normal/abnormal . NRBC/100 WBC (test code 0.0 See_Comment [Au tomated message] = 4064791685) The system [facility] generated this result transmit elizabeth reference range : 0.0 - 10.0 /100 WBC s. The reference r mitra was not used to interpret this result as normal/abnormal . IPF % (test code = 9921630223) Lab Interpretation (test Abnormal code = 62503-6) [facility] Without [id number] 11:28:31 Test Item Value Reference Range Interpretation Comments WBC (test code = 6690-2) 7.81 See_Comment [A utomated message] The system [employer] generated this result transmit elizabeth reference range : 4.20 - 10.70 10*3/?L. The reference range was not used to interpret this result as normal/abnormal . RBC (test code = 789-8) 4.04 See_Comment L [Au tomated message] The system [employer] generated this result transmit elizabeth reference range [...] 252 See_Comment [Au tomated message] The system [employer] generated this result transmit elizabeth reference range : 150 - 328 10*3/?L. The reference range was not used to interpret this result as normal/abnormal . MPV (test code = 9.6 fL 9.8-13.0 L 25877-7) RDW-CV (test code = 14.6 % 12.1-15.4 788-0) RDW-SD (test code = 46.5 fL 38.5-51.6 39494-0) NRBC x10^3 (test code = See_Comment [Au tomated message] 2150931737) The system [employer] generated this result transmit elizabeth reference range : 10*3/?L. The reference range was not used to interpret this result as normal/abnormal . NRBC/100 WBC (test code 0.0 See_Comment [Au tomated message] = 9769348542) The system [employer] generated this result transmit elizabeth reference range : 0.0 - 10.0 /100 WBC s. The reference r mitra was not used to interpret this result as normal/abnormal . IPF % (test code = 3657804866) Lab Interpretation (test Abnormal code = 99501-8) [facility] [id number] 18:45:15 Test Item Value Reference Range Interpretation Comments Factor 2 Z28107V Heterozygous Normal Mutation (test code = 7307220465) DEWAYNE (test code = Phenotype DEWAYNE) Characteristics: [...] further increased for homozygotes. Mutation Tested: F2 c.08273L>A (H28397P). Clinical Sensitivity for Venous Thrombosis: Approximately 10%. Methodology: Polymerase chain reaction and fluorescence monitoring Limitations: The performance of this assay has not been evaluated with samples from pediatric patients. Counseling and informed consent are recommended for genetic testing. References: OMIM: 880758 [email or web address]/c ondition/prothrombin-thro mbophilia [facility] [id number] 18:45:15 Test Item Value Reference Range Interpretation Comments FACTOR 5 LEIDEN Heterozygous Normal (test code = 0233793380) DEWAYNE (test code = Phenotype Characteristics: DEWAYNE) [...] the Factor 5 Leiden mutation is c.1601G>A (p.Puj249Vlm). Methodology: Polymerase chain reaction and fluorescence monitoring. Limitations: Rare Factor V mutations (L9861C, F0556B, and A4612T) and any additional SNPs in the probe binding region may interfere with the target detection and yield an INVALID result. The performance of this assay has not been evaluated with samples from pediatric patients. Counseling and informed consent are recommended for genetic testing. References: OMIM: 166688 [email or web address]://ghr.nlm.nih.gov/co ndition/wtjwct-a-mmfpkd-th rombophilia [facility] V68782S [id number] 18:45:15 Test Item Value Reference Range Interpretation Comments Factor 2 G83556T Heterozygous Normal Mutation (test code = 7285965456) DEWAYNE (test code = Phenotype DEWAYNE) Characteristics: [...] further increased for homozygotes. Mutation Tested: F2 c.72567G>A (C09528Q). Clinical Sensitivity for Venous Thrombosis: Approximately 10%. Methodology: Polymerase chain reaction and fluorescence monitoring Limitations: The performance of this assay has not been evaluated with samples from pediatric patients. Counseling and informed consent are recommended for genetic testing. References: OMIM: 115776 [email or web address].[email or web address].gov/c ondition/prothrombin-thro mbophilia [facility] [id number] 18:45:15 Test Item Value Reference Range Interpretation Comments FACTOR 5 LEIDEN Heterozygous Normal (test code = 1401467275) DEWAYNE (test code = Phenotype Characteristics: DEWAYNE) [...] the Factor 5 Leiden mutation is c.1601G>A (p.Anh710Kop). Methodology: Polymerase chain reaction and fluorescence monitoring. Limitations: Rare Factor V mutations (H4303L, L4080W, and C5344M) and any additional SNPs in the probe binding region may interfere with the target detection and yield an INVALID result. The performance of this assay has not been evaluated with samples from pediatric patients. Counseling and informed consent are recommended for genetic testing. References: OMIM: 984578 https://ghr.nlm.nih.gov/co ndition/nbecbl-c-uovqnp-th rombophilia [facility] [id number] [id number] 18:45:15 Test Item Value Reference Range Interpretation Comments Factor 2 Y16462Y Heterozygous Normal Mutation (test code = 9574627320) DEWAYNE (test code = Phenotype DEWAYNE) Characteristics: [...] further increased for homozygotes. Mutation Tested: F2 c.13727T>A (A85655W). Clinical Sensitivity for Venous Thrombosis: Approximately 10%. Methodology: Polymerase chain reaction and fluorescence monitoring Limitations: The performance of this assay has not been evaluated with samples from pediatric patients. Counseling and informed consent are recommended for genetic testing. References: OMIM: 759686 [email or web address]://ghr.nlm.nih.gov/c ondition/prothrombin-thro mbophilia [facility] [id number] 18:45:15 Test Item Value Reference Range Interpretation Comments FACTOR 5 LEIDEN Heterozygous Normal (test code = 9831272485) DEWAYNE (test code = Phenotype Characteristics: DEWAYNE) [...] the Factor 5 Leiden mutation is c.1601G>A (p.Gru218Vot). Methodology: Polymerase chain reaction and fluorescence monitoring. Limitations: Rare Factor V mutations (X0516X, C2689O, and R6978A) and any additional SNPs in the probe binding region may interfere with the target detection and yield an INVALID result. The performance of this assay has not been evaluated with samples from pediatric patients. Counseling and informed consent are recommended for genetic testing. References: OMIM: 964136 https://ghr.nlm.nih.gov/co ndition/ltwtmj-a-ffolgg-th rombophilia [facility] [id number] 18:45:15 Test Item Value Reference Range Interpretation Comments Factor 2 W66543W Heterozygous Normal Mutation (test code = 1830173772) DEWAYNE (test code = Phenotype DEWAYNE) Characteristics: [...] further increased for homozygotes. Mutation Tested: F2 c.20761Q>A (F40991F). Clinical Sensitivity for Venous Thrombosis: Approximately 10%. Methodology: Polymerase chain reaction and fluorescence monitoring Limitations: The performance of this assay has not been evaluated with samples from pediatric patients. Counseling and informed consent are recommended for genetic testing. References: OMIM: 290669 [email or web address]://ghr.nlm.nih.gov/c ondition/prothrombin-thro mbophilia [facility] [id number] 18:45:15 Test Item Value Reference Range Interpretation Comments FACTOR 5 LEIDEN Heterozygous Normal (test code = 0225453069) DEWAYNE (test code = Phenotype Characteristics: DEWAYNE) [...] the Factor 5 Leiden mutation is c.1601G>A (p.Bhp114Psh). Methodology: Polymerase chain reaction and fluorescence monitoring. Limitations: Rare Factor V mutations (D8491Q, E0904B, and Y3173I) and any additional SNPs in the probe binding region may interfere with the target detection and yield an INVALID result. The performance of this assay has not been evaluated with samples from pediatric patients. Counseling and informed consent are recommended for genetic testing. References: OMIM: 682555 https://ghr.nlm.nih.gov/co ndition/jisjeg-g-rbizxx-th rombophilia [facility] (NA, K, CL, CO2, GLUCOSE, BUN, CREATININE, CA)2022-05-28 09:52:42 Test Item Value Reference Range Interpretation Comments NA (test code = 137 mmol/L 135-145 0290193405) K (test code = 3.8 mmol/L 3.5-5.0 3429327181) CL (test code = 103 mmol/L 98-108 4458666072) CO2 TOTAL (test code = 27 mmol/L 23-31 6407687884) AGAP (test code = 7 2-16 4894177863) BUN (test code = 27 mg/dL 7-23 H 7894896214) GLUCOSE (test code = 105 mg/dL 70-110 9736832487) CREATININE (test code = 0.84 mg/dL 0.60-1.25 1018677153) CALCIUM (test code = 8.5 mg/dL 8.6-10.6 L 0190349027) eGFR (test code = 93.5 mL/min/1.73m2 4737907747) DEWAYNE (test code = DEWAYNE) Association of [...] tests). Lab Interpretation Abnormal (test code = 85899-5) [facility] (NA, K, CL, CO2, GLUCOSE, BUN, CREATININE, CA)2022-05-28 09:52:42 Test Item Value Reference Range Interpretation Comments NA (test code = 137 mmol/L 135-145 3678853400) K (test code = 3.8 mmol/L 3.5-5.0 8916542012) CL (test code = 103 mmol/L 98-108 8023295643) CO2 TOTAL (test code = 27 mmol/L 23-31 5817140066) AGAP (test code = 7 2-16 9227141670) BUN (test code = 27 mg/dL 7-23 H 3172686534) GLUCOSE (test code = 105 mg/dL 70-110 1203967281) CREATININE (test code = 0.84 mg/dL 0.60-1.25 7194598133) CALCIUM (test code = 8.5 mg/dL 8.6-10.6 L 5689759428) eGFR (test code = 93.5 mL/min/1.73m2 5946677344) DEWAYNE (test code = DEWAYNE) Association of [...] tests). Lab Interpretation Abnormal (test code = 48071-6) [facility] METABOLIC PANEL (NA, K, CL, CO2, GLUCOSE, BUN, CREATININE, CA)2022-05-28 09:52:42 Test Item Value Reference Range Interpretation Comments NA (test code = 137 mmol/L 135-145 1702742338) K (test code = 3.8 mmol/L 3.5-5.0 7765540086) CL (test code = 103 mmol/L 98-108 7435921079) CO2 TOTAL (test code = 27 mmol/L 23-31 8342254343) AGAP (test code = 7 2-16 6589489535) BUN (test code = 27 mg/dL 7-23 H 8966201462) GLUCOSE (test code = 105 mg/dL 70-110 3020043272) CREATININE (test code = 0.84 mg/dL 0.60-1.25 4931549970) CALCIUM (test code = 8.5 mg/dL 8.6-10.6 L 9689745400) eGFR (test code = 93.5 mL/min/1.73m2 1889596057) DEWAYNE (test code = DEWAYNE) Association of [...] tests). Lab Interpretation Abnormal (test code = 58180-6) [facility] METABOLIC PANEL (NA, K, CL, CO2, GLUCOSE, BUN, CREATININE, CA)2022-05-28 09:52:42 Test Item Value Reference Range Interpretation Comments NA (test code = 137 mmol/L 135-145 0720910975) K (test code = 3.8 mmol/L 3.5-5.0 1139979509) CL (test code = 103 mmol/L 98-108 0765841616) CO2 TOTAL (test code = 27 mmol/L 23-31 7416537668) AGAP (test code = 7 2-16 8849704499) BUN (test code = 27 mg/dL 7-23 H 0372065430) GLUCOSE (test code = 105 mg/dL 70-110 3092049547) CREATININE (test code = 0.84 mg/dL 0.60-1.25 3932546709) CALCIUM (test code = 8.5 mg/dL 8.6-10.6 L 6687545877) eGFR (test code = 93.5 mL/min/1.73m2 5945556225) DEWAYNE (test code = DEWAYNE) Association of [...] tests). Lab Interpretation Abnormal (test code = 65750-9) [facility] WITH [id number] 09:29:20 Test Item Value Reference Range Interpretation Comments WBC (test code = 8.34 See_Comment [Automated 0790-2) message] The sy stem which generated this result transmitted reference range : 4.20 - 10.70 10*3/?L. The reference range was not used to interpret this result as normal/abnormal . RBC (test code = 4.08 See_Comment L [Automated 949-8) message] The sy stem which generated this [...] RDW-SD (test code = 44.7 fL 38.5-51.6 95900-6) RDW-CV (test code = 14.5 % 12.1-15.4 788-0) PLT (test code = 199 See_Comment [Automated 777-3) message] The sy stem which generated this result transmitted reference range : 150 - 328 10*3/ ?L. The reference r mitra was not used to interpret this result as normal/abnormal . MPV (test code = 9.3 fL 9.8-13.0 L 25567-9) NRBC/100 WBC (test 0.0 See_Comment [Automat ed code = 6832994817) message] The system which generated this result transmitted reference range : 0.0 - 10.0 /100 WBCs. The refer ence range was not u sed to interpret th is result as normal/abnormal . NRBC x10^3 (test code See_Comment [Auto mated = 8642684229) message] The s ystem which generated this result transmitted reference range : 10*3/?L. The reference range was not used to interpret this result as normal/abnormal . GRAN MAT (NEUT) % 56.1 % (test code = 770-8) IMM GRAN % (test code 1.20 % = 4804408315) LYMPH % (test code = 30.8 % 736-9) MONO % (test code = 7.6 % 5905-5) EOS % (test code = 3.7 % 713-8) BASO % (test code = 0.6 % 706-2) GRAN MAT x10^3(ANC) 4.68 10*3/uL 1.99-6.95 (test code = 7757495156) IMM GRAN x10^3 (test 0.10 10*3/uL 0.00-0.06 H code = 3086322351) LYMPH x10^3 (test code 2.57 10*3/uL 1.09-3.23 = 731-0) MONO x10^3 (test code 0.63 10*3/uL 0.36-1.02 = 742-7) EOS x10^3 (test code = 0.31 10*3/uL 0.06-0.53 711-2) BASO x10^3 (test code 0.05 10*3/uL 0.01-0.09 = 704-7) Lab Interpretation Abnormal (test code = 70544-3) [facility] WITH [id number] 09:29:20 Test Item Value Reference Range Interpretation [...] RDW-SD (test code = 44.7 fL 38.5-51.6 86162-9) RDW-CV (test code = 14.5 % 12.1-15.4 788-0) PLT (test code = 199 See_Comment [Automated 777-3) message] The sy stem which generated this result transmitted reference range : 150 - 328 10*3/ ?L. The reference r mitra was not used to interpret this result as normal/abnormal . MPV (test code = 9.3 fL 9.8-13.0 L 80012-2) NRBC/100 WBC (test 0.0 See_Comment [Automat ed code = 3596328890) message] The system which generated this result transmitted reference range : 0.0 - 10.0 /100 WBCs. The refer ence range was not u sed to interpret th is result as normal/abnormal . NRBC x10^3 (test code See_Comment [Auto mated = 5758758853) message] The s ystem which generated this result transmitted reference range : 10*3/?L. The reference range was not used to interpret this result as normal/abnormal . GRAN MAT (NEUT) % 56.1 % (test code = 770-8) IMM GRAN % (test code 1.20 % = 4058231848) LYMPH % (test code = 30.8 % 736-9) MONO % (test code = 7.6 % 5905-5) EOS % (test code = 3.7 % 713-8) BASO % (test code = 0.6 % 706-2) GRAN MAT x10^3(ANC) 4.68 10*3/uL 1.99-6.95 (test code = 9850610681) IMM GRAN x10^3 (test 0.10 10*3/uL 0.00-0.06 H code = 7770410107) LYMPH x10^3 (test code 2.57 10*3/uL 1.09-3.23 = 731-0) MONO x10^3 (test code 0.63 10*3/uL 0.36-1.02 = 742-7) EOS x10^3 (test code = 0.31 10*3/uL 0.06-0.53 711-2) BASO x10^3 (test code 0.05 10*3/uL 0.01-0.09 = 704-7) Lab Interpretation Abnormal (test code = 23510-6) [facility] WITH [id number] 09:29:20 Test Item Value Reference Range Interpretation Comments WBC (test code = 8.34 See_Comment [Automated 6690-2) message] The sy stem which generated this result transmitted reference range : 4.20 - 10.70 10*3/?L. The reference range was not used to interpret this result as normal/abnormal . RBC (test code = 4.08 See_Comment L [Automated 049-8) message] The sy stem which generated this [...] RDW-SD (test code = 44.7 fL 38.5-51.6 55896-4) RDW-CV (test code = 14.5 % 12.1-15.4 788-0) PLT (test code = 199 See_Comment [Automated 777-3) message] The sy stem which generated this result transmitted reference range : 150 - 328 10*3/ ?L. The reference r mitra was not used to interpret this result as normal/abnormal . MPV (test code = 9.3 fL 9.8-13.0 L 89711-2) NRBC/100 WBC (test 0.0 See_Comment [Automat ed code = 4512756879) message] The system which generated this result transmitted reference range : 0.0 - 10.0 /100 WBCs. The refer ence range was not u sed to interpret th is result as normal/abnormal . NRBC x10^3 (test code See_Comment [Auto mated = 3083890774) message] The s ystem which generated this result transmitted reference range : 10*3/?L. The reference range was not used to interpret this result as normal/abnormal . GRAN MAT (NEUT) % 56.1 % (test code = 770-8) IMM GRAN % (test code 1.20 % = 4693245275) LYMPH % (test code = 30.8 % 736-9) MONO % (test code = 7.6 % 5905-5) EOS % (test code = 3.7 % 713-8) BASO % (test code = 0.6 % 706-2) GRAN MAT x10^3(ANC) 4.68 10*3/uL 1.99-6.95 (test code = 4254046467) IMM GRAN x10^3 (test 0.10 10*3/uL 0.00-0.06 H code = 8321199809) LYMPH x10^3 (test code 2.57 10*3/uL 1.09-3.23 = 731-0) MONO x10^3 (test code 0.63 10*3/uL 0.36-1.02 = 742-7) EOS x10^3 (test code = 0.31 10*3/uL 0.06-0.53 711-2) BASO x10^3 (test code 0.05 10*3/uL 0.01-0.09 = 704-7) Lab Interpretation Abnormal (test code = 18917-8) [facility] WITH [id number] 09:29:20 Test Item Value Reference Range Interpretation [...] RDW-SD (test code = 44.7 fL 38.5-51.6 13626-4) RDW-CV (test code = 14.5 % 12.1-15.4 788-0) PLT (test code = 199 See_Comment [Automated 777-3) message] The sy stem which generated this result transmitted reference range : 150 - 328 10*3/ ?L. The reference r mitra was not used to interpret this result as normal/abnormal . MPV (test code = 9.3 fL 9.8-13.0 L 77924-3) NRBC/100 WBC (test 0.0 See_Comment [Automat ed code = 2461312278) message] The system which generated this result transmitted reference range : 0.0 - 10.0 /100 WBCs. The refer ence range was not u sed to interpret th is result as normal/abnormal . NRBC x10^3 (test code See_Comment [Auto mated = 1860817822) message] The s ystem which generated this result transmitted reference range : 10*3/?L. The reference range was not used to interpret this result as normal/abnormal . GRAN MAT (NEUT) % 56.1 % (test code = 770-8) IMM GRAN % (test code 1.20 % = 0465428057) LYMPH % (test code = 30.8 % 736-9) MONO % (test code = 7.6 % 5905-5) EOS % (test code = 3.7 % 713-8) BASO % (test code = 0.6 % 706-2) GRAN MAT x10^3(ANC) 4.68 10*3/uL 1.99-6.95 (test code = 9707553724) IMM GRAN x10^3 (test 0.10 10*3/uL 0.00-0.06 H code = 6333372348) LYMPH x10^3 (test code 2.57 10*3/uL 1.09-3.23 = 731-0) MONO x10^3 (test code 0.63 10*3/uL 0.36-1.02 = 742-7) EOS x10^3 (test code = 0.31 10*3/uL 0.06-0.53 711-2) BASO x10^3 (test code 0.05 10*3/uL 0.01-0.09 = 704-7) Lab Interpretation Abnormal (test code = 31584-7) [facility] [id number] 04:20:00 Test Item Value Reference Interpretation Comments Range Levetiracetam 4.1 ug/mL 10.0-40.0 A This test was developed and ([facility]), S (test its perfor fritz code = KEPPRA.L) characteris ticsdetermined by [facility]. It has not been cleared orappro mannie by the Food and Drug Administration. Performed at: - [facility] [id number] [facility] Hospital[facility], [place] [id number] Di shahid: Miriam Sevilla MD, Ph one: [phone] Drug Screen,[id number] 20:40:00 Test Item Value Reference Range Interpretation [...] Negative Negative code = UPROP) Comprehensive Metabolic Zseie1748-11-53 19:50:00 Test Item Value Reference Range Interpretation [...] 47 U/L 46-116 N = ALP) Troponin [id number] 19:50:00 Test Item Value Reference Range Interpretation [...] 99th percentile in serialmeasureme nts. Prothrombin Time [id number] 19:50:00 Test Item Value Reference Range Interpretation Comments Prothrombin Time (test code = 10.9 Seconds 9.8-13.4 N PT) INR (test code = INR) 1.0 ratio 0.6-1.2 N Partial Thromboplastin Oqfo7561-61-92 19:50:00 Test Item Value Reference Range Interpretation Comments Partial Thromboplastin Time 20.00 Seconds 24.39-37.25 L (test code = PTT) Complete Blood Count Auto Vrvg4321-30-97 19:50:00 Test Item Value Reference Range Interpretation [...] code = NRBCP) 0 % B-Type Natriuretic Xcmklwr4955-93-88 19:50:00 Test Item Value Reference Range Interpretation Comments B-Type Natriuretic Peptide (test 30.2 pg/mL 0.0-99.9 N code = BNP) SARS-CoV-2 (COVID-19) RNA [Presence] in Respiratory specimen by COOPER with probe mjaktqows2239-24-31 03:31:41 Test Item Value Reference Range Interpretation Comments SARS-CoV-2 (COVID-19) RNA Not detected Not-Detected [Presence] in Respiratory specimen by COOPER with probe detection (test code = 21215-1) [facility] Metabolic Bzfve9007-12-18 20:19:00 Test Item Value Reference Range Interpretation [...] ars ofage have not been validated by e MDRD study and christopher reed be interpretedwith caution.eGFR Re sult Interpretation: eGFR > or = 60 is in t he Normal RangeeGF R < 60 may mean kidney diseaseeGFR < 1 5 may mean kidney failureRange s recommended by the National Kidney Foundation,http ://nkd ep.nih.gov CT HEAD OR BRAIN WO RSGQTIEZ2588-65-06 18:19:40Location code: R 15HISTORY: Intracranial hemorrhageCOMPARISON: None.TECHNIQUE: [...] Unremarkable nonenhanced CT scan of the brain.Ammonia, [id number] 12:35:00 Test Item Value Reference Range Interpretation Comments Ammonia (test code = NH3) 25.0 umol/L 11.0-35.0 N US DUPLX EXT VEINS COMPRS, [id number] 15:35:40ULTRASOUND: Bilateral lower extremity venous duplex sonography.History: [...] An IVC filter is in place.Impression:Unremarkable exam.Glycosylated Pkkowjhhex4998-83-84 10:36:00 Test Item Value Reference Range Interpretation Comments HBA1c (test code = HBA1C) 5.1 % 4.8-5.9 N RPR, Lqww4434-52-93 12:10:00 Test Item Value Reference Range Interpretation Comments RPR (test code = RPR) Non-Reactive Non-Reactive N Thyroid Stimulating Hormone (TSH)2016-12-24 06:02:00 Test Item Value Reference Range Interpretation Comments TSH (test code = TSH) 1.03 mIU/mL 0.270-4.200 N Lipid Drejwpm3102-41-17 05:53:00 Test Item Value Reference Range Interpretation Comments Cholesterol (test 205 mg/dL 0-200 H code = CHOL) Triglycerides (test 69 mg/dL 9-200 N code = TRIG) HDL (test code = 68 mg/dL 40-60 H HDL) Chol/HDL (test code 3.0 Ratio 0.0-5.0 N = CHOLPHDL) LDL, Calculated 123 0-130 N (NOTE)RISK O F HEART (test code = LDLC) DISEASEPu blished by Italian Heart AssociationAnal yte Optimal Boderli ne Increased RiskC HOL <200 200-239 >240TRI G <150 150-199 >200HDL Male: >60 <40HDL Fema le: >60 <50LDL <100 130 -159 >160LDL NEAR OP TIMAL IS 100-129 VLDL (test code = 14 mg/dL 5-40 N VLDL) LDL/HDL (test code = 2 LDLPHDL) Comprehensive Metabolic Scwsi3895-45-39 18:42:00 Test Item Value Reference Range Interpretation [...] validated by th e MDRD study and marcioul d be interpretedwith caution.eGFR Re sult Interpretation: eGFR > or = 60 is in t he Normal RangeeGF R < 60 may mean kidney diseaseeGFR < 1 5 may mean kidney failureRange s recommended by the National Kidney Foundation,http ://nkd ep.nih.gov CBC with Ieydumehfhly7946-89-45 17:59:00 Test Item Value Reference Range Interpretation [...] code = ALYMPH) 1.4 K/cumm 0.5-4.6 N Glynn Abs (test code = AMONO) 0.9 K/cumm 0.0-1.2 N Eos Abs (test code = AEOS) 0.01 K/cumm 0.00-0.74 N Baso Abs (test code = ABASO) 0.0 K/cumm 0.00-0.21 N SHGVEQZRYISB9356-07-22 18:46:00 Test Item Value Reference Range Interpretation Comments B/C Ratio (test code = B/C Ratio) 18 6-25 [facility]ZyydfyrLIYQIIBOKXPI3039-27-18 18:46:00 Test Item Value Reference Range Interpretation Comments A/G Ratio (test code = A/G Ratio) 1.1 0.7-1.6 [facility] BranchRswncaxZDZGOVSPAVQQ3356-89-16 18:46:00 Test Item Value Reference Range Interpretation Comments Globulin (test code = Globulin) 3.3 2.0-4.0 [facility] BranchGqganiiPJNTOULHDUJI1116-73-71 18:46:00 Test Item Value Reference Range Interpretation Comments eGFR (test code = eGFR) 99 [facility] BranchGwhccxaNKTIPMFVLCZC8698-69-52 18:46:00 Test Item Value Reference Range Interpretation Comments Calcium Lvl (test code = Calcium Lvl) 9.0 8.5-10.5 [facility] BranchRrvfzabNWSVLIPPVWCO6167-25-72 18:46:00 Test Item Value Reference Range Interpretation Comments Chloride Lvl (test code = Chloride Lvl) 106 95-109 [facility] BranchIjadrhfEXNQGTPKXZFK1252-97-08 18:46:00 Test Item Value Reference Range Interpretation Comments Creatinine Lvl (test code = Creatinine 0.9 0.5-1.4 Lvl) [facility] BranchToicjzkTJKBFYAOPZKV2744-94-52 18:46:00 Test Item Value Reference Range Interpretation Comments Potassium Lvl (test code = Potassium 4.2 3.5-5.1 Lvl) [facility] BranchSnkpcmgJWTTPPUYPQPL3434-27-33 18:46:00 Test Item Value Reference Range Interpretation Comments Sodium Lvl (test code = Sodium Lvl) 139 135-145 [facility] BranchGbtisytNIPFHQWHEWKS5603-90-25 18:46:00 Test Item Value Reference Range Interpretation Comments CO2 (test code = CO2) 24 24-32 [facility] BranchUinodxhEFJNYVFXJYUE6361-38-35 18:46:00 Test Item Value Reference Range Interpretation Comments BUN (test code = BUN) 16 7-22 [facility] BranchTofglvpNLRHPITNHGHK5510-96-63 18:46:00 Test Item Value Reference Range Interpretation Comments Glucose Lvl (test code = Glucose Lvl) 141 70-99 [facility] BranchWjxxmjkKPNJNOYXEFJE6465-66-18 18:46:00 Test Item Value Reference Range Interpretation Comments Albumin Lvl (test code = Albumin Lvl) 3.6 3.5-5.0 [facility] BranchUgmoqrjDOMIVYDLRQUT7935-79-03 18:46:00 Test Item Value Reference Range Interpretation Comments Alk Phos (test code = Alk Phos) 65 39-136 [facility] BranchOzowvoxCDWPUYTDFZOK0841-37-68 18:46:00 Test Item Value Reference Range Interpretation Comments Bili Total (test code = Bili Total) 0.3 0.2-1.3 [facility] BranchQywpsyzQJRFQXURCIPQ1550-10-12 18:46:00 Test Item Value Reference Range Interpretation Comments ALT (test code = ALT) 100 See_Comment [Auto mated message] The system which ge nerated this result transmit elizabeth reference range : <=65. The reference range was not used to interpr et this result as margaret l/abnormal. [facility] BranchWcpoibgIEOVIIAYNRLG6725-31-50 18:46:00 Test Item Value Reference Range Interpretation Comments AST (test code = AST) 53 See_Comment [Auto mated message] The system which ge nerated this result transmit elizabeth reference range : <=37. The reference range was not used to interpr et this result as margaret l/abnormal. [facility] BranchHkspfqdXOGQTINMBXXP8025-30-34 18:46:00 Test Item Value Reference Range Interpretation Comments Total Protein (test code = Total 6.9 6.4-8.4 Protein) [facility]YsmlkjuQHOTTXKXRS0078-04-57 18:46:00 Test Item Value Reference Range Interpretation Comments Eosinophils (test code = 4.2 See_Comment [A utomated message] The Eosinophils) system which ge nerated this result tra nsmitted reference range : <=4.0. The reference r mitra was not used to int erpret this result as normal/abnormal . [facility]viewEivpmrrZXJQETNUZB8536-31-56 18:46:00 Test Item Value Reference Range Interpretation Comments Segs (test code = Segs) 56.4 45.0-75.0 [facility]viewRfcucgxPONGMQLRSM2243-36-90 18:46:00 Test Item Value Reference Range Interpretation Comments Monocytes (test code = Monocytes) 10.3 2.0-12.0 [facility]viewJspfbfoUDSUDQWVEM9927-38-00 18:46:00 Test Item Value Reference Range Interpretation Comments Lymphocytes (test code = Lymphocytes) 28.0 20.0-40.0 [facility] LongviewXaxxbiaGMVGVAHIFK2502-91-17 18:46:00 Test Item Value Reference Range Interpretation Comments Monocytes # (test code 0.5 See_Comment [Aut omated message] The = Monocytes #) system which generated this result tra nsmitted reference range : <=0.8. The reference r mitra was not used to int erpret this result as normal/abnormal . [facility]viewNqpoofsCDJUWRVHWK0974-10-63 18:46:00 Test Item Value Reference Range Interpretation Comments Basophils (test code = 1.1 See_Comment [Aut omated message] The Basophils) system which ge nerated this result tra nsmitted reference range : <=1.0. The reference r mitra was not used to int erpret this result as normal/abnormal . [facility]viewGfaotqnVLIJTXGOSM0882-06-85 18:46:00 Test Item Value Reference Range Interpretation Comments Lymphocytes # (test code = Lymphocytes 1.5 1.0-5.5 #) [facility]viewUxsfaruJEMXZHMKVH3336-03-12 18:46:00 Test Item Value Reference Range Interpretation Comments Segs-Bands # (test code = Segs-Bands #) 2.9 1.5-8.1 [facility]viewZqjsfonJCLMYALNJI3526-59-72 18:46:00 Test Item Value Reference Range Interpretation Comments Eosinophils # (test code 0.2 See_Comment [A utomated message] The = Eosinophils #) system whic h generated this result tra nsmitted reference range : <=0.5. The reference r mitra was not used to int erpret this result as normal/abnormal . [facility]viewWbbdovcOGXHDGGQFT0958-91-53 18:46:00 Test Item Value Reference Range Interpretation Comments Basophils # (test code 0.1 See_Comment [Aut omated message] The = Basophils #) system which generated this result tra nsmitted reference range : <=0.2. The reference r mitra was not used to int erpret this result as normal/abnormal . [facility]viewRawjjjtHPQJRGMQBY7278-97-26 18:46:00 Test Item Value Reference Range Interpretation Comments PT (test code = PT) 11.2 s 12.0-14.7 [facility]viewGxuyojlRMJELQPHJW7239-05-25 18:46:00 Test Item Value Reference Range Interpretation Comments INR (test code = INR) 0.82 0.85-1.17 [facility] LongviewZvalqweXEWHYNFDHX0984-69-28 18:46:00 Test Item Value Reference Range Interpretation Comments PTT (test code = PTT) 28.6 s 22.9-35.8 [facility]PrwzkplKEKRZQLHOP5217-18-91 18:46:00 Test Item Value Reference Range Interpretation Comments MPV (test code = MPV) 8.1 7.4-10.4 [facility] HospitalOorvrzcFTPLFDDQAY6266-58-14 18:46:00 Test Item Value Reference Range Interpretation Comments Platelet (test code = Platelet) 301 133-450 [facility] HospitalNdeetbgKPPGOQBQNP4841-09-56 18:46:00 Test Item Value Reference Range Interpretation Comments RDW (test code = RDW) 14.5 11.5-14.5 [facility] HospitalOufvfaqXDJNPCXBNL8658-26-77 18:46:00 Test Item Value Reference Range Interpretation Comments RBC (test code = RBC) 4.84 4.70-6.10 [facility] HospitalCwxcedoJYMPCYMECH6681-54-29 18:46:00 Test Item Value Reference Range Interpretation Comments Hgb (test code = Hgb) 14.4 14.0-18.0 [facility] HospitalPzogphvEGOUOJQNWK3289-29-27 18:46:00 Test Item Value Reference Range Interpretation Comments WBC (test code = WBC) 5.2 3.7-10.4 [facility] HospitalXovgmwqRSBTKJHQIH6639-74-72 18:46:00 Test Item Value Reference Range Interpretation Comments MCH (test code = MCH) 29.8 pg 27.0-31.0 [facility] HospitalFhtgckfWJLKWMFJFS4946-51-67 18:46:00 Test Item Value Reference Range Interpretation Comments MCV (test code = MCV) 92.0 80.0-94.[address] [facility] CenterMvbnfisEMOIUXREEZ5004-80-31 18:46:00 Test Item Value Reference Range Interpretation Comments Hct (test code = Hct) 44.5 42.0-54.0 [facility] HospitalYrjzxdjEOKLGCFTGV9238-70-53 18:46:00 Test Item Value Reference Range Interpretation Comments MCHC (test code = MCHC) 32.4 32.0-36.[address] [facility] [address] [facility] CenterOhjzpkqWRNCZTLBIV5344-76-34 18:46:00 Test Item Value Reference Range Interpretation Comments [place]-Hep C Ab (test Negative *NA*(07/22/14 code = [place]-Hep C 1:46 PM) Ab) [facility] AND [id number] 18:46:00 Test Item Value Reference Range Interpretation Comments UA Urobilinogen (test code = UA <=1.0 mg/dL 0.1-1.0 Urobilinogen) [facility] AND IUZJF5401-35-55 18:46:00 Test Item Value Reference Range Interpretation Comments UA Sq Epi (test code = UA Sq Epi) None Seen [facility] AND [id number] 18:46:00 Test Item Value Reference Range Interpretation Comments UA Leuk Est (test Negative (07/22/14 1:46 code = UA Leuk Est) PM) [facility] AND [id number] 18:46:00 Test Item Value Reference Range Interpretation Comments UA Nitrite (test code Negative (07/22/14 1:46 = UA Nitrite) PM) [facility] AND [id number] 18:46:00 Test Item Value Reference Range Interpretation Comments UA Blood (test code = Negative (07/22/14 1:46 UA Blood) PM) [facility] AND [id number] 18:46:00 Test Item Value Reference Range Interpretation Comments UA Ketones (test code = UA Negative mg/dL Ketones) [facility] AND [id number] 18:46:00 Test Item Value Reference Range Interpretation Comments UA Bili (test code = Negative *NA*(07/22/14 UA Bili) 1:46 PM) [facility] AND [id number] 18:46:00 Test Item Value Reference Range Interpretation Comments UA Bacteria (test code = UA Occasional /HPF Bacteria) [facility] AND [id number] 18:46:00 Test Item Value Reference Range Interpretation Comments UA RBC (test code = no gt See_Comment [Automa elizabeth message] The UA RBC) system which ge nerated this result transmit elizabeth reference range : <=2. The reference range was not used to interpr et this result as margaret l/abnormal. [facility] AND ZQYMG9962-94-37 18:46:00 Test Item Value Reference Range Interpretation Comments UA WBC (test code = 1 See_Comment [Automa elizabeth message] The UA WBC) system which ge nerated this result transmit elizabeth reference range : <=5. The reference range was not used to interpr et this result as margaret l/abnormal. [facility] AND [id number] 18:46:00 Test Item Value Reference Range Interpretation Comments UA Glucose (test code = UA Glucose) 30 mg/dL [facility] AND [id number] 18:46:00 Test Item Value Reference Range Interpretation Comments UA Protein (test code = UA Negative mg/dL Protein) [facility] AND [id number] 18:46:00 Test Item Value Reference Range Interpretation Comments UA pH (test code = UA pH) 6.5 5.0-8.0 [facility] AND [id number] 18:46:00 Test Item Value Reference Range Interpretation Comments UA Turbidity (test code = Clear (07/22/14 1:46 UA Turbidity) PM) [facility] AND [id number] 18:46:00 Test Item Value Reference Range Interpretation Comments UA Spec Grav (test code = UA Spec Grav) 1.010 [facility] AND [id number] 18:46:00 Test Item Value Reference Range Interpretation Comments UA Color (test code = Light Yellow UA Color) *NA*(07/22/14 1:46 PM) [facility] [id number] 18:46:00 Test Item Value Reference Range Interpretation Comments Magnesium Lvl (test code = Magnesium 1.8 1.8-2.4 Lvl) [facility]ZxypnrcDHIXLBZUWXJX2635-33-14 18:46:00 Test Item Value Reference Range Interpretation Comments AGAP (test code = AGAP) 13.2 10.0-20.0 [facility] BranchLdskhuqMOZGUBLMSDUG8693-65-21 18:46:00 Test Item Value Reference Range Interpretation Comments B/C Ratio (test code = B/C Ratio) 18 6-25 [facility] BranchKhpcfpbFZPXPHQZRUIS3309-66-55 18:46:00 Test Item Value Reference Range Interpretation Comments A/G Ratio (test code = A/G Ratio) 1.1 0.7-1.6 [facility] BranchWvbtuuwKWFXKZFXQBVG5744-78-12 18:46:00 Test Item Value Reference Range Interpretation Comments Globulin (test code = Globulin) 3.3 2.0-4.0 [facility] BranchXiyijfkSQBUQCLWTWSI7230-45-44 18:46:00 Test Item Value Reference Range Interpretation Comments eGFR (test code = eGFR) 99 [facility] BranchQcthstiGOGTXUHYKHJG2105-87-66 18:46:00 Test Item Value Reference Range Interpretation Comments Calcium Lvl (test code = Calcium Lvl) 9.0 8.5-10.5 [facility] BranchQuxjkmiOJFKKBFTGUIZ1175-38-47 18:46:00 Test Item Value Reference Range Interpretation Comments Chloride Lvl (test code = Chloride Lvl) 106 95-109 [facility] BranchTgclftmQLKQATMBWJKT3143-76-40 18:46:00 Test Item Value Reference Range Interpretation Comments Creatinine Lvl (test code = Creatinine 0.9 0.5-1.4 Lvl) [facility] BranchSuaetnmQISWHDWIIVKR4205-63-84 18:46:00 Test Item Value Reference Range Interpretation Comments Potassium Lvl (test code = Potassium 4.2 3.5-5.1 Lvl) [facility] BranchWrqabgbONTPDFYXJPWK8834-05-80 18:46:00 Test Item Value Reference Range Interpretation Comments Sodium Lvl (test code = Sodium Lvl) 139 135-145 [facility] BranchImqaoltWBUUUGJPSPOZ6956-39-32 18:46:00 Test Item Value Reference Range Interpretation Comments CO2 (test code = CO2) 24 24-32 [facility] BranchRdrxmezKBBJVMOGGFBF0732-52-88 18:46:00 Test Item Value Reference Range Interpretation Comments BUN (test code = BUN) 16 7-22 [facility] BranchMsyrnvdQVQONNDJCMFA2850-28-36 18:46:00 Test Item Value Reference Range Interpretation Comments Glucose Lvl (test code = Glucose Lvl) 141 70-99 [facility] BranchTpnauzqLMJINKKZUVVN0172-29-41 18:46:00 Test Item Value Reference Range Interpretation Comments Albumin Lvl (test code = Albumin Lvl) 3.6 3.5-5.0 [facility] BranchOtckvuvYYWISNCCOQQX1628-04-31 18:46:00 Test Item Value Reference Range Interpretation Comments Alk Phos (test code = Alk Phos) 65 39-136 [facility] BranchReoyzpzLWFLJQLBPFDT9031-07-96 18:46:00 Test Item Value Reference Range Interpretation Comments Bili Total (test code = Bili Total) 0.3 0.2-1.3 [facility] BranchCpydudoPNWVSROXKPLI0339-41-68 18:46:00 Test Item Value Reference Range Interpretation Comments ALT (test code = ALT) 100 See_Comment [Auto mated message] The system which ge nerated this result transmit elizabeth reference range : <=65. The reference range was not used to interpr et this result as margaret l/abnormal. [facility] BranchJzmdwtiSEUBNEXVGNYL2275-74-12 18:46:00 Test Item Value Reference Range Interpretation Comments AST (test code = AST) 53 See_Comment [Auto mated message] The system which ge nerated this result transmit elizabeth reference range : <=37. The reference range was not used to interpr et this result as margaret l/abnormal. [facility] BranchAzdjhjjUCLVHIWAZGQX4998-46-67 18:46:00 Test Item Value Reference Range Interpretation Comments Total Protein (test code = Total 6.9 6.4-8.4 Protein) [facility]UjhhbdzXYSMWNQDEJ2241-97-24 18:46:00 Test Item Value Reference Range Interpretation Comments Eosinophils (test code = 4.2 See_Comment [A utomated message] The Eosinophils) system which ge nerated this result tra nsmitted reference range : <=4.0. The reference r mitra was not used to int erpret this result as normal/abnormal . [facility]viewTzuafwlIGEKLPZPYU3356-57-58 18:46:00 Test Item Value Reference Range Interpretation Comments Segs (test code = Segs) 56.4 45.0-75.0 [facility]viewHjvqrvfHHXSWOSXOY9375-53-39 18:46:00 Test Item Value Reference Range Interpretation Comments Monocytes (test code = Monocytes) 10.3 2.0-12.0 [facility]viewPdqakxqZEXQHNVXRI4340-42-51 18:46:00 Test Item Value Reference Range Interpretation Comments Lymphocytes (test code = Lymphocytes) 28.0 20.0-40.0 [facility]viewVwgyihjEOAGMCNNHE0090-01-15 18:46:00 Test Item Value Reference Range Interpretation Comments Monocytes # (test code 0.5 See_Comment [Aut omated message] The = Monocytes #) system which generated this result tra nsmitted reference range : <=0.8. The reference r mitra was not used to int erpret this result as normal/abnormal . [facility]viewTinhrcnJUEVZKMLZD1788-74-46 18:46:00 Test Item Value Reference Range Interpretation Comments Basophils (test code = 1.1 See_Comment [Aut omated message] The Basophils) system which ge nerated this result tra nsmitted reference range : <=1.0. The reference r mitra was not used to int erpret this result as normal/abnormal . [facility]viewLjctowlZAFWLLMGOK2652-27-59 18:46:00 Test Item Value Reference Range Interpretation Comments Lymphocytes # (test code = Lymphocytes 1.5 1.0-5.5 #) [facility] LongviewQaawadaWMTGQVDARR7018-13-84 18:46:00 Test Item Value Reference Range Interpretation Comments Segs-Bands # (test code = Segs-Bands #) 2.9 1.5-8.1 [facility]viewWjmlihhWBEJXAEKHF8243-89-46 18:46:00 Test Item Value Reference Range Interpretation Comments Eosinophils # (test code 0.2 See_Comment [A utomated message] The = Eosinophils #) system whic h generated this result tra nsmitted reference range : <=0.5. The reference r mitra was not used to int erpret this result as normal/abnormal . [facility]viewStjmdtuHZWNMSKEGO6799-78-35 18:46:00 Test Item Value Reference Range Interpretation Comments Basophils # (test code 0.1 See_Comment [Aut omated message] The = Basophils #) system which generated this result tra nsmitted reference range : <=0.2. The reference r mitra was not used to int erpret this result as normal/abnormal . [facility]viewDzgbvzlICWPWJPADN3177-03-08 18:46:00 Test Item Value Reference Range Interpretation Comments PT (test code = PT) 11.2 s 12.0-14.7 [facility]viewDasdmfkZTEBCYXXQO2226-64-40 18:46:00 Test Item Value Reference Range Interpretation Comments INR (test code = INR) 0.82 0.85-1.17 [facility]viewIoenxgmZIJLFVZHDM2973-79-04 18:46:00 Test Item Value Reference Range Interpretation Comments PTT (test code = PTT) 28.6 s 22.9-35.8 [facility]viewSetxxvvDUWVJJSPMD5345-00-49 18:46:00 Test Item Value Reference Range Interpretation Comments MPV (test code = MPV) 8.1 7.4-10.4 [facility]viewXzybhtwSLCFCXTBHA0214-24-41 18:46:00 Test Item Value Reference Range Interpretation Comments Platelet (test code = Platelet) 301 133-450 [facility] LongviewWiczqorMPUWLDDCZA8789-21-37 18:46:00 Test Item Value Reference Range Interpretation Comments RDW (test code = RDW) 14.5 11.5-14.5 [facility] LongviewVassoraLLBMHRVASM3697-36-37 18:46:00 Test Item Value Reference Range Interpretation Comments RBC (test code = RBC) 4.84 4.70-6.10 [facility]viewKoankhlHTLGZAPQRA1740-67-83 18:46:00 Test Item Value Reference Range Interpretation Comments Hgb (test code = Hgb) 14.4 14.0-18.0 [facility]viewHubjzskWWUPUGSCOX2115-89-13 18:46:00 Test Item Value Reference Range Interpretation Comments WBC (test code = WBC) 5.2 3.7-10.4 [facility]viewYakxvkbTZZBCRYVWD4591-58-92 18:46:00 Test Item Value Reference Range Interpretation Comments MCH (test code = MCH) 29.8 pg 27.0-31.0 [facility] LongviewLdknfckOEBCTWTPLI4825-73-43 18:46:00 Test Item Value Reference Range Interpretation Comments MCV (test code = MCV) 92.0 80.0-94.0 [facility] LongviewCdupopzWVZITCRIGA2058-23-53 18:46:00 Test Item Value Reference Range Interpretation Comments Hct (test code = Hct) 44.5 42.0-54.0 [facility]viewFwtyqctAFXDNFEMFF4449-59-99 18:46:00 Test Item Value Reference Range Interpretation Comments MCHC (test code = MCHC) 32.4 32.0-36.[address] [facility] CenterWnkogojFLIXTCBWFL8021-25-47 18:46:00 Test Item Value Reference Range Interpretation Comments [place]-Hep C Ab (test Negative *NA*(07/22/14 code = [place]-Hep C 1:46 PM) Ab) [facility] AND [id number] 18:46:00 Test Item Value Reference Range Interpretation Comments UA Urobilinogen (test code = UA <=1.0 mg/dL 0.1-1.0 Urobilinogen) [facility] AND [id number] 18:46:00 Test Item Value Reference Range Interpretation Comments UA Sq Epi (test code = UA Sq Epi) None Seen [facility] AND [id number] 18:46:00 Test Item Value Reference Range Interpretation Comments UA Leuk Est (test Negative (07/22/14 1:46 code = UA Leuk Est) PM) [facility] AND [id number] 18:46:00 Test Item Value Reference Range Interpretation Comments UA Nitrite (test code Negative (07/22/14 1:46 = UA Nitrite) PM) [facility] AND [id number] 18:46:00 Test Item Value Reference Range Interpretation Comments UA Blood (test code = Negative (07/22/14 1:46 UA Blood) PM) [facility] AND [id number] 18:46:00 Test Item Value Reference Range Interpretation Comments UA Ketones (test code = UA Negative mg/dL Ketones) [facility] AND [id number] 18:46:00 Test Item Value Reference Range Interpretation Comments UA Bili (test code = Negative *NA*(07/22/14 UA Bili) 1:46 PM) [facility] AND [id number] 18:46:00 Test Item Value Reference Range Interpretation Comments UA Bacteria (test code = UA Occasional /HPF Bacteria) [facility] AND [id number] 18:46:00 Test Item Value Reference Range Interpretation Comments UA RBC (test code = no gt See_Comment [Automa elizabeth message] The UA RBC) system which ge nerated this result transmit elizabeth reference range : <=2. The reference range was not used to interpr et this result as margaret l/abnormal. [facility] AND [id number] 18:46:00 Test Item Value Reference Range Interpretation Comments UA WBC (test code = 1 See_Comment [Automa elizabeth message] The UA WBC) system which ge nerated this result transmit elizabeth reference range : <=5. The reference range was not used to interpr et this result as margaret l/abnormal. [facility] AND [id number] 18:46:00 Test Item Value Reference Range Interpretation Comments UA Glucose (test code = UA Glucose) 30 mg/dL [facility] AND [id number] 18:46:00 Test Item Value Reference Range Interpretation Comments UA Protein (test code = UA Negative mg/dL Protein) [facility] AND [id number] 18:46:00 Test Item Value Reference Range Interpretation Comments UA pH (test code = UA pH) 6.5 5.0-8.0 [facility] AND [id number] 18:46:00 Test Item Value Reference Range Interpretation Comments UA Turbidity (test code = Clear (07/22/14 1:46 UA Turbidity) PM) [facility] [id number] 18:46:00 Test Item Value Reference Range Interpretation Comments UA Spec Grav (test code = UA Spec Grav) 1.010 [facility] [id number] 18:46:00 Test Item Value Reference Range Interpretation Comments UA Color (test code = Light Yellow UA Color) *NA*(07/22/14 1:46 PM) [facility] [id number] 18:46:00 Test Item Value Reference Range Interpretation Comments Magnesium Lvl (test code = Magnesium 1.8 1.8-2.4 Lvl) [facility]ScavddjSBSMYBODQWXD3708-18-31 18:46:00 Test Item Value Reference Range Interpretation Comments AGAP (test code = AGAP) 13.2 10.0-20.0 [facility] BranchGkciloxLZIMZBNAOPLH9905-23-66 18:46:00 Test Item Value Reference Range Interpretation Comments B/C Ratio (test code = B/C Ratio) 18 6-25 [facility] BranchMktqxbvNLFEEEEYJKMR8955-11-13 18:46:00 Test Item Value Reference Range Interpretation Comments A/G Ratio (test code = A/G Ratio) 1.1 0.7-1.6 [facility] BranchVuhqbqyWVLLNCPCYCOG4212-67-41 18:46:00 Test Item Value Reference Range Interpretation Comments Globulin (test code = Globulin) 3.3 2.0-4.0 [facility] BranchYkvyvamINKZCWMHFXBW7936-12-21 18:46:00 Test Item Value Reference Range Interpretation Comments eGFR (test code = eGFR) 99 [facility] BranchTjfdlzjAFXSXSEGCCOD1818-79-20 18:46:00 Test Item Value Reference Range Interpretation Comments Calcium Lvl (test code = Calcium Lvl) 9.0 8.5-10.5 [facility] BranchYiopsrhOHTUOISUUNAT6887-64-53 18:46:00 Test Item Value Reference Range Interpretation Comments Chloride Lvl (test code = Chloride Lvl) 106 95-109 [facility] BranchGdvluboSHNVGUFPVSSB1458-19-75 18:46:00 Test Item Value Reference Range Interpretation Comments Creatinine Lvl (test code = Creatinine 0.9 0.5-1.4 Lvl) [facility] BranchSixmafcEPCFWDAOZQAP0626-48-40 18:46:00 Test Item Value Reference Range Interpretation Comments Potassium Lvl (test code = Potassium 4.2 3.5-5.1 Lvl) [facility] BranchYkpuzwgYUPBEKIKXXNI0201-26-11 18:46:00 Test Item Value Reference Range Interpretation Comments Sodium Lvl (test code = Sodium Lvl) 139 135-145 [facility] BranchKgzqmdrZAMETWBKGDYN0442-06-33 18:46:00 Test Item Value Reference Range Interpretation Comments CO2 (test code = CO2) 24 24-32 [facility] BranchMtszzfxOGDFXDWXYJTV3403-89-01 18:46:00 Test Item Value Reference Range Interpretation Comments BUN (test code = BUN) 16 7-22 [facility] BranchBrrsttcRYUPYBBKBAIB6039-21-03 18:46:00 Test Item Value Reference Range Interpretation Comments Glucose Lvl (test code = Glucose Lvl) 141 70-99 [facility] BranchGxvkifzGFQSJRXMYZTM6182-39-94 18:46:00 Test Item Value Reference Range Interpretation Comments Albumin Lvl (test code = Albumin Lvl) 3.6 3.5-5.0 [facility] BranchBfjwojdLUWKHVEYZLCJ2418-62-98 18:46:00 Test Item Value Reference Range Interpretation Comments Alk Phos (test code = Alk Phos) 65 39-136 [facility] BranchXnjhizyLNPHSBRBYZYI0942-43-21 18:46:00 Test Item Value Reference Range Interpretation Comments Bili Total (test code = Bili Total) 0.3 0.2-1.3 [facility] BranchOabrrkeYZSELKFSXEWY9483-00-40 18:46:00 Test Item Value Reference Range Interpretation Comments ALT (test code = ALT) 100 See_Comment [Auto mated message] The system which ge nerated this result transmit elizabeth reference range : <=65. The reference range was not used to interpr et this result as margaret l/abnormal. [facility] BranchAyrpmphUSWEBXVBKAQV2712-10-51 18:46:00 Test Item Value Reference Range Interpretation Comments AST (test code = AST) 53 See_Comment [Auto mated message] The system which ge nerated this result transmit elizabeth reference range : <=37. The reference range was not used to interpr et this result as margaret l/abnormal. [facility] BranchUhycshhATLNTODJMWRB6416-55-30 18:46:00 Test Item Value Reference Range Interpretation Comments Total Protein (test code = Total 6.9 6.4-8.4 Protein) [facility] CenterTmpxmywURNJWQWQII1812-97-96 18:46:00 Test Item Value Reference Range Interpretation Comments Eosinophils (test code = 4.2 See_Comment [A utomated message] The Eosinophils) system which ge nerated this result tra nsmitted reference range : <=4.0. The reference r mitra was not used to int erpret this result as normal/abnormal . [facility]viewVoaipbjHVZENYBJQD6010-75-92 18:46:00 Test Item Value Reference Range Interpretation Comments Segs (test code = Segs) 56.4 45.0-75.0 [facility]viewDvtbggnCUXTJWACBA9572-48-86 18:46:00 Test Item Value Reference Range Interpretation Comments Monocytes (test code = Monocytes) 10.3 2.0-12.0 [facility] LongviewZrqamwwFFGSYWNVAU8607-41-82 18:46:00 Test Item Value Reference Range Interpretation Comments Lymphocytes (test code = Lymphocytes) 28.0 20.0-40.0 [facility]viewAegcqllSLASCBILLZ9724-71-22 18:46:00 Test Item Value Reference Range Interpretation Comments Monocytes # (test code 0.5 See_Comment [Aut omated message] The = Monocytes #) system which generated this result tra nsmitted reference range : <=0.8. The reference r mitra was not used to int erpret this result as normal/abnormal . [facility]viewSkgualnJECUUMZBHX1793-81-61 18:46:00 Test Item Value Reference Range Interpretation Comments Basophils (test code = 1.1 See_Comment [Aut omated message] The Basophils) system which ge nerated this result tra nsmitted reference range : <=1.0. The reference r mitra was not used to int erpret this result as normal/abnormal . [facility]viewAvvnhtqQWQZOLQUPX7021-03-90 18:46:00 Test Item Value Reference Range Interpretation Comments Lymphocytes # (test code = Lymphocytes 1.5 1.0-5.5 #) [facility] LongviewCxkmocfYLQWYEVYZB8016-36-83 18:46:00 Test Item Value Reference Range Interpretation Comments Segs-Bands # (test code = Segs-Bands #) 2.9 1.5-8.1 [facility]viewHqkveizHQURAHUCZP5063-06-38 18:46:00 Test Item Value Reference Range Interpretation Comments Eosinophils # (test code 0.2 See_Comment [A utomated message] The = Eosinophils #) system whic h generated this result tra nsmitted reference range : <=0.5. The reference r mitra was not used to int erpret this result as normal/abnormal . [facility] LongviewVxrrsnlWAMYIPRMJL5723-73-95 18:46:00 Test Item Value Reference Range Interpretation Comments Basophils # (test code 0.1 See_Comment [Aut omated message] The = Basophils #) system which generated this result tra nsmitted reference range : <=0.2. The reference r mitra was not used to int erpret this result as normal/abnormal . [facility]viewMsgpiwtWBHPYYDJMJ1078-70-32 18:46:00 Test Item Value Reference Range Interpretation Comments PT (test code = PT) 11.2 s 12.0-14.7 [facility]viewChcgumzCFMVYWOOWN0296-00-61 18:46:00 Test Item Value Reference Range Interpretation Comments INR (test code = INR) 0.82 0.85-1.17 [facility]viewEpagdphRULEAEPXQG5419-60-84 18:46:00 Test Item Value Reference Range Interpretation Comments PTT (test code = PTT) 28.6 s 22.9-35.8 [facility]viewYkmeepfBMSWSPNUZL3940-96-26 18:46:00 Test Item Value Reference Range Interpretation Comments MPV (test code = MPV) 8.1 7.4-10.4 [facility] LongviewYazrohkNEKZWKRXAL7005-87-60 18:46:00 Test Item Value Reference Range Interpretation Comments Platelet (test code = Platelet) 301 133-450 [facility] LongviewNwqcmgzJLBCRNFZLG1693-85-31 18:46:00 Test Item Value Reference Range Interpretation Comments RDW (test code = RDW) 14.5 11.5-14.5 [facility] LongviewFrvskutZSLIVZLCGV4375-13-66 18:46:00 Test Item Value Reference Range Interpretation Comments RBC (test code = RBC) 4.84 4.70-6.10 [facility] LongviewOtdfizeRTTISQWJNX9862-18-07 18:46:00 Test Item Value Reference Range Interpretation Comments Hgb (test code = Hgb) 14.4 14.0-18.0 [facility] LongviewNxkvlguXYFSIDQWYR6478-17-34 18:46:00 Test Item Value Reference Range Interpretation Comments WBC (test code = WBC) 5.2 3.7-10.4 [facility] LongviewUftntkqTXQHMHQZCX8433-12-58 18:46:00 Test Item Value Reference Range Interpretation Comments MCH (test code = MCH) 29.8 pg 27.0-31.0 [facility] VhbylujKYVSGQWWFW9905-05-28 18:46:00 Test Item Value Reference Range Interpretation Comments MCV (test code = MCV) 92.0 80.0-94.0 [facility] XuxavfkWITTNIREBK9967-39-06 18:46:00 Test Item Value Reference Range Interpretation Comments Hct (test code = Hct) 44.5 42.0-54.0 [facility] NpfeezeJWHOXKXYNS8082-08-56 18:46:00 Test Item Value Reference Range Interpretation Comments MCHC (test code = MCHC) 32.4 32.0-36.0 [facility] EpgqhpoHOHUBLEDML0331-63-61 18:46:00 Test Item Value Reference Range Interpretation Comments [place]-Hep C Ab (test Negative *NA*(07/22/14 code = [place]-Hep C 1:46 PM) Ab) [facility] AND [id number] 18:46:00 Test Item Value Reference Range Interpretation Comments UA Urobilinogen (test code = UA <=1.0 mg/dL 0.1-1.0 Urobilinogen) [facility] AND [id number] 18:46:00 Test Item Value Reference Range Interpretation Comments UA Sq Epi (test code = UA Sq Epi) None Seen [facility] AND [id number] 18:46:00 Test Item Value Reference Range Interpretation Comments UA Leuk Est (test Negative (07/22/14 1:46 code = UA Leuk Est) PM) [facility] AND [id number] 18:46:00 Test Item Value Reference Range Interpretation Comments UA Nitrite (test code Negative (07/22/14 1:46 = UA Nitrite) PM) [facility] AND [id number] 18:46:00 Test Item Value Reference Range Interpretation Comments UA Blood (test code = Negative (07/22/14 1:46 UA Blood) PM) [facility] AND [id number] 18:46:00 Test Item Value Reference Range Interpretation Comments UA Ketones (test code = UA Negative mg/dL Ketones) [facility] AND [id number] 18:46:00 Test Item Value Reference Range Interpretation Comments UA Bili (test code = Negative *NA*(07/22/14 UA Bili) 1:46 PM) [facility] [id number] 18:46:00 Test Item Value Reference Range Interpretation Comments UA Bacteria (test code = UA Occasional /HPF Bacteria) [facility] [id number] 18:46:00 Test Item Value Reference Range Interpretation Comments UA RBC (test code = no gt See_Comment [Automa elizabeth message] The UA RBC) system which ge nerated this result transmit elizabeth reference range : <=2. The reference range was not used to interpr et this result as margaret l/abnormal. [facility] [id number] 18:46:00 Test Item Value Reference Range Interpretation Comments UA WBC (test code = 1 See_Comment [Automa elizabeth message] The UA WBC) system which ge nerated this result transmit elizabeth reference range : <=5. The reference range was not used to interpr et this result as margaret l/abnormal. [facility] [id number] 18:46:00 Test Item Value Reference Range Interpretation Comments UA Glucose (test code = UA Glucose) 30 mg/dL [facility] [id number] 18:46:00 Test Item Value Reference Range Interpretation Comments UA Protein (test code = UA Negative mg/dL Protein) [facility] [id number] 18:46:00 Test Item Value Reference Range Interpretation Comments UA pH (test code = UA pH) 6.5 5.0-8.0 [facility] [id number] 18:46:00 Test Item Value Reference Range Interpretation Comments UA Turbidity (test code = Clear (07/22/14 1:46 UA Turbidity) PM) [facility] [id number] 18:46:00 Test Item Value Reference Range Interpretation Comments UA Spec Grav (test code = UA Spec Grav) 1.010 [facility] [id number] 18:46:00 Test Item Value Reference Range Interpretation Comments UA Color (test code = Light Yellow UA Color) *NA*(07/22/14 1:46 PM) [facility] [id number] 18:46:00 Test Item Value Reference Range Interpretation Comments Magnesium Lvl (test code = Magnesium 1.8 1.8-2.4 Lvl) [facility] KbodmkxJGQFLHSROGZJ6128-19-55 18:46:00 Test Item Value Reference Range Interpretation Comments AGAP (test code = AGAP) 13.2 10.0-20.0 [facility]FktofdfQDSQXZXUTDCL1457-37-58 18:46:00 Test Item Value Reference Range Interpretation Comments B/C Ratio (test code = B/C Ratio) 18 6-25 [facility] BranchKfcelcfTPMQBLJABIQX8400-93-59 18:46:00 Test Item Value Reference Range Interpretation Comments A/G Ratio (test code = A/G Ratio) 1.1 0.7-1.6 [facility] BranchGnslqhaVRZVJTOVGAFN7756-35-68 18:46:00 Test Item Value Reference Range Interpretation Comments Globulin (test code = Globulin) 3.3 2.0-4.0 [facility] BranchEbmxliyGCYJFYAHCEEY4210-91-24 18:46:00 Test Item Value Reference Range Interpretation Comments eGFR (test code = eGFR) 99 [facility] BranchCofwbffRCWJCLJWSHNE8280-56-65 18:46:00 Test Item Value Reference Range Interpretation Comments Calcium Lvl (test code = Calcium Lvl) 9.0 8.5-10.5 [facility] BranchLpivleuPGVSDPFLWEHR2962-51-98 18:46:00 Test Item Value Reference Range Interpretation Comments Chloride Lvl (test code = Chloride Lvl) 106 95-109 [facility] BranchDmvbucfEGNOYLWZYZYK3059-28-83 18:46:00 Test Item Value Reference Range Interpretation Comments Creatinine Lvl (test code = Creatinine 0.9 0.5-1.4 Lvl) [facility] BranchRmghbprAYPAYERWMBPS4008-79-78 18:46:00 Test Item Value Reference Range Interpretation Comments Potassium Lvl (test code = Potassium 4.2 3.5-5.1 Lvl) [facility] BranchBoqdkblFKIWKFEOWBUZ5248-65-64 18:46:00 Test Item Value Reference Range Interpretation Comments Sodium Lvl (test code = Sodium Lvl) 139 135-145 [facility] BranchJenjmxsGTBCZXCOHDPQ8816-59-31 18:46:00 Test Item Value Reference Range Interpretation Comments CO2 (test code = CO2) 24 24-32 [facility] BranchXtfbydmGFZPRIXAMNUE9042-11-18 18:46:00 Test Item Value Reference Range Interpretation Comments BUN (test code = BUN) 16 7-22 [facility] BranchKhavgtpNBYWIMTGLJHL7711-71-90 18:46:00 Test Item Value Reference Range Interpretation Comments Glucose Lvl (test code = Glucose Lvl) 141 70-99 [facility] BranchNlxzvluCWPTIGVWATUV1083-66-30 18:46:00 Test Item Value Reference Range Interpretation Comments Albumin Lvl (test code = Albumin Lvl) 3.6 3.5-5.0 [facility] BranchDnxmmfxMIZLQKWCLIKR8576-04-12 18:46:00 Test Item Value Reference Range Interpretation Comments Alk Phos (test code = Alk Phos) 65 39-136 [facility] BranchPsovsaiHUINNMOVGRBI3879-64-02 18:46:00 Test Item Value Reference Range Interpretation Comments Bili Total (test code = Bili Total) 0.3 0.2-1.3 [facility] BranchKfjznldIJBXPFJVJZLH8941-32-40 18:46:00 Test Item Value Reference Range Interpretation Comments ALT (test code = ALT) 100 See_Comment [Auto mated message] The system which ge nerated this result transmit elizabeth reference range : <=65. The reference range was not used to interpr et this result as margaret l/abnormal. [facility] BranchInvvjkoYNGDTZOAUDAB0622-51-54 18:46:00 Test Item Value Reference Range Interpretation Comments AST (test code = AST) 53 See_Comment [Auto mated message] The system which ge nerated this result transmit elizabeth reference range : <=37. The reference range was not used to interpr et this result as margaret l/abnormal. [facility] BranchAofaqdkANBDZKCBQXGU8290-32-56 18:46:00 Test Item Value Reference Range Interpretation Comments Total Protein (test code = Total 6.9 6.4-8.4 Protein) [facility]viewTxatxolRKBOALFFTO0877-79-49 18:46:00 Test Item Value Reference Range Interpretation Comments Eosinophils (test code = 4.2 See_Comment [A utomated message] The Eosinophils) system which ge nerated this result tra nsmitted reference range : <=4.0. The reference r mitra was not used to int erpret this result as normal/abnormal . [facility]viewJjysyqgFCZDZMOCIS1208-25-32 18:46:00 Test Item Value Reference Range Interpretation Comments Segs (test code = Segs) 56.4 45.0-75.0 [facility]viewAyifhzxXJCEFPGKXO5501-40-55 18:46:00 Test Item Value Reference Range Interpretation Comments Monocytes (test code = Monocytes) 10.3 2.0-12.0 [facility]viewRcqflcqLOXJPRERLC6771-82-27 18:46:00 Test Item Value Reference Range Interpretation Comments Lymphocytes (test code = Lymphocytes) 28.0 20.0-40.0 [facility]viewCeecnipPNIUAJSGMW9667-38-67 18:46:00 Test Item Value Reference Range Interpretation Comments Monocytes # (test code 0.5 See_Comment [Aut omated message] The = Monocytes #) system which generated this result tra nsmitted reference range : <=0.8. The reference r mitra was not used to int erpret this result as normal/abnormal . [facility] LongviewXzauxusKNHKIHVKXC7931-68-76 18:46:00 Test Item Value Reference Range Interpretation Comments Basophils (test code = 1.1 See_Comment [Aut omated message] The Basophils) system which ge nerated this result tra nsmitted reference range : <=1.0. The reference r mitra was not used to int erpret this result as normal/abnormal . [facility] LongviewIjiseakARTUROQCEM0303-53-56 18:46:00 Test Item Value Reference Range Interpretation Comments Lymphocytes # (test code = Lymphocytes 1.5 1.0-5.5 #) [facility]viewRxollkrHKBXBUAKTU9124-90-76 18:46:00 Test Item Value Reference Range Interpretation Comments Segs-Bands # (test code = Segs-Bands #) 2.9 1.5-8.1 [facility]viewMlyithfEKFSPMOPTN7566-23-17 18:46:00 Test Item Value Reference Range Interpretation Comments Eosinophils # (test code 0.2 See_Comment [A utomated message] The = Eosinophils #) system whic h generated this result tra nsmitted reference range : <=0.5. The reference r mitra was not used to int erpret this result as normal/abnormal . [facility]viewKudrxjmGWSAGZOBFE9833-09-40 18:46:00 Test Item Value Reference Range Interpretation Comments Basophils # (test code 0.1 See_Comment [Aut omated message] The = Basophils #) system which generated this result tra nsmitted reference range : <=0.2. The reference r mitra was not used to int erpret this result as normal/abnormal . [facility]viewVfapjdpXDGMXLCZRW3572-11-17 18:46:00 Test Item Value Reference Range Interpretation Comments PT (test code = PT) 11.2 s 12.0-14.7 [facility]viewKkmcswiHJZJKQFRON7094-62-77 18:46:00 Test Item Value Reference Range Interpretation Comments INR (test code = INR) 0.82 0.85-1.17 [facility]viewVhdrjwsUMLQNDCSOA9289-63-06 18:46:00 Test Item Value Reference Range Interpretation Comments PTT (test code = PTT) 28.6 s 22.9-35.8 [facility]viewYmfxuhkVNVDJMDYCE2292-68-75 18:46:00 Test Item Value Reference Range Interpretation Comments MPV (test code = MPV) 8.1 7.4-10.4 [facility]viewNlfaouwHEPCTVALKW6731-17-75 18:46:00 Test Item Value Reference Range Interpretation Comments Platelet (test code = Platelet) 301 133-450 [facility]viewKmgdjriCXZFLAUKBW6522-52-85 18:46:00 Test Item Value Reference Range Interpretation Comments RDW (test code = RDW) 14.5 11.5-14.5 [facility]viewWaoekapODMCHBVCZX5508-77-14 18:46:00 Test Item Value Reference Range Interpretation Comments RBC (test code = RBC) 4.84 4.70-6.10 [facility]viewTmkrjehPGEIPCGPTV9057-68-36 18:46:00 Test Item Value Reference Range Interpretation Comments Hgb (test code = Hgb) 14.4 14.0-18.0 [facility]viewMzztcceMLBIQQRBFM1630-10-27 18:46:00 Test Item Value Reference Range Interpretation Comments WBC (test code = WBC) 5.2 3.7-10.4 [facility]viewGkrhyppUHNKTDLTKK6559-72-61 18:46:00 Test Item Value Reference Range Interpretation Comments MCH (test code = MCH) 29.8 pg 27.0-31.0 [facility] LongviewDidfbsrEFECINSWRL0659-50-75 18:46:00 Test Item Value Reference Range Interpretation Comments MCV (test code = MCV) 92.0 80.0-94.0 [facility]viewMjzhijpVWLBCDMEHJ2390-66-45 18:46:00 Test Item Value Reference Range Interpretation Comments Hct (test code = Hct) 44.5 42.0-54.0 [facility]viewFodjspyTSMHBQMGVF7228-95-34 18:46:00 Test Item Value Reference Range Interpretation Comments MCHC (test code = MCHC) 32.4 32.0-36.[address] [facility] CenterSdgxxjrEAWIPJFEDQ4017-01-36 18:46:00 Test Item Value Reference Range Interpretation Comments [place]-Hep C Ab (test Negative *NA*(07/22/14 code = [place]-Hep C 1:46 PM) Ab) [facility] AND [id number] 18:46:00 Test Item Value Reference Range Interpretation Comments UA Urobilinogen (test code = UA <=1.0 mg/dL 0.1-1.0 Urobilinogen) [facility] AND [id number] 18:46:00 Test Item Value Reference Range Interpretation Comments UA Sq Epi (test code = UA Sq Epi) None Seen [facility] AND [id number] 18:46:00 Test Item Value Reference Range Interpretation Comments UA Leuk Est (test Negative (07/22/14 1:46 code = UA Leuk Est) PM) [facility] AND [id number] 18:46:00 Test Item Value Reference Range Interpretation Comments UA Nitrite (test code Negative (07/22/14 1:46 = UA Nitrite) PM) [facility] AND [id number] 18:46:00 Test Item Value Reference Range Interpretation Comments UA Blood (test code = Negative (07/22/14 1:46 UA Blood) PM) [facility] AND [id number] 18:46:00 Test Item Value Reference Range Interpretation Comments UA Ketones (test code = UA Negative mg/dL Ketones) [facility] AND [id number] 18:46:00 Test Item Value Reference Range Interpretation Comments UA Bili (test code = Negative *NA*(07/22/14 UA Bili) 1:46 PM) [facility] AND [id number] 18:46:00 Test Item Value Reference Range Interpretation Comments UA Bacteria (test code = UA Occasional /HPF Bacteria) [facility] AND [id number] 18:46:00 Test Item Value Reference Range Interpretation Comments UA RBC (test code = no gt See_Comment [Automa elizabeth message] The UA RBC) system which ge nerated this result transmit elizabeth reference range : <=2. The reference range was not used to interpr et this result as margaret l/abnormal. [facility] AND [id number] 18:46:00 Test Item Value Reference Range Interpretation Comments UA WBC (test code = 1 See_Comment [Automa elizabeth message] The UA WBC) system which ge nerated this result transmit elizabeth reference range : <=5. The reference range was not used to interpr et this result as margaret l/abnormal. [facility] AND [id number] 18:46:00 Test Item Value Reference Range Interpretation Comments UA Glucose (test code = UA Glucose) 30 mg/dL [facility] AND [id number] 18:46:00 Test Item Value Reference Range Interpretation Comments UA Protein (test code = UA Negative mg/dL Protein) [facility] AND [id number] 18:46:00 Test Item Value Reference Range Interpretation Comments UA pH (test code = UA pH) 6.5 5.0-8.0 [facility] AND [id number] 18:46:00 Test Item Value Reference Range Interpretation Comments UA Turbidity (test code = Clear (07/22/14 1:46 UA Turbidity) PM) [facility] AND [id number] 18:46:00 Test Item Value Reference Range Interpretation Comments UA Spec Grav (test code = UA Spec Grav) 1.010 [facility] AND [id number] 18:46:00 Test Item Value Reference Range Interpretation Comments UA Color (test code = Light Yellow UA Color) *NA*(07/22/14 1:46 PM) [facility] [id number] 18:46:00 Test Item Value Reference Range Interpretation Comments Magnesium Lvl (test code = Magnesium 1.8 1.8-2.4 Lvl) [facility] BranchFgkseqkMSDFZZMIHGYT5266-37-96 18:46:00 Test Item Value Reference Range Interpretation Comments AGAP (test code = AGAP) 13.2 10.0-20.0 [facility] BranchJasjjiuOBYBIEXSCLOE8732-12-22 18:46:00 Test Item Value Reference Range Interpretation Comments B/C Ratio (test code = B/C Ratio) 18 6-25 [facility] BranchKctoajtONKLQUXXQFZC3948-88-11 18:46:00 Test Item Value Reference Range Interpretation Comments A/G Ratio (test code = A/G Ratio) 1.1 0.7-1.6 [facility] BranchXdvgqwdNCCSKZYGUDJN0786-35-40 18:46:00 Test Item Value Reference Range Interpretation Comments Globulin (test code = Globulin) 3.3 2.0-4.0 [facility] BranchLnbbjqqHQCLXKRORPKF4378-15-20 18:46:00 Test Item Value Reference Range Interpretation Comments eGFR (test code = eGFR) 99 [facility] BranchVvanhijVDVQYWZBTFBQ2570-60-92 18:46:00 Test Item Value Reference Range Interpretation Comments Calcium Lvl (test code = Calcium Lvl) 9.0 8.5-10.5 [facility] BranchEncpkhiHPSFENFSMYEP7090-92-46 18:46:00 Test Item Value Reference Range Interpretation Comments Chloride Lvl (test code = Chloride Lvl) 106 95-109 [facility] BranchIyeqfqjNRQWBFHLGBLF7725-73-92 18:46:00 Test Item Value Reference Range Interpretation Comments Creatinine Lvl (test code = Creatinine 0.9 0.5-1.4 Lvl) [facility] BranchKuureiaWGHUIRQLBMJF1007-85-46 18:46:00 Test Item Value Reference Range Interpretation Comments Potassium Lvl (test code = Potassium 4.2 3.5-5.1 Lvl) [facility] BranchHjnxltuPPXEQIKZDDDA3956-54-75 18:46:00 Test Item Value Reference Range Interpretation Comments Sodium Lvl (test code = Sodium Lvl) 139 135-145 [facility] BranchViosyszOWKZUYCGNPOJ6967-56-50 18:46:00 Test Item Value Reference Range Interpretation Comments CO2 (test code = CO2) 24 24-32 [facility] BranchHiodktfDBZCBASQEFOX0451-27-74 18:46:00 Test Item Value Reference Range Interpretation Comments BUN (test code = BUN) 16 7-22 [facility] BranchUimgwteGNTHVRGLGHGH9532-27-33 18:46:00 Test Item Value Reference Range Interpretation Comments Glucose Lvl (test code = Glucose Lvl) 141 70-99 [facility] BranchVkchmwsCKDRWEUEJVEL6988-37-35 18:46:00 Test Item Value Reference Range Interpretation Comments Albumin Lvl (test code = Albumin Lvl) 3.6 3.5-5.0 [facility] BranchKatgylcVYUKNDVKAUAZ4214-87-77 18:46:00 Test Item Value Reference Range Interpretation Comments Alk Phos (test code = Alk Phos) 65 39-136 [facility] BranchHgushuhZJHGURRYRUCU0564-16-64 18:46:00 Test Item Value Reference Range Interpretation Comments Bili Total (test code = Bili Total) 0.3 0.2-1.3 [facility] BranchJipavwtQEVNXWEEQTXZ0577-42-31 18:46:00 Test Item Value Reference Range Interpretation Comments ALT (test code = ALT) 100 See_Comment [Auto mated message] The system which ge nerated this result transmit elizabeth reference range : <=65. The reference range was not used to interpr et this result as margaret l/abnormal. [facility] BranchYkuapxnMNSSRMUEODZK7393-42-06 18:46:00 Test Item Value Reference Range Interpretation Comments AST (test code = AST) 53 See_Comment [Auto mated message] The system which ge nerated this result transmit elizabeth reference range : <=37. The reference range was not used to interpr et this result as margaret l/abnormal. [facility] BranchPuxgcojLWKCJEHWATEI3625-03-87 18:46:00 Test Item Value Reference Range Interpretation Comments Total Protein (test code = Total 6.9 6.4-8.4 Protein) [facility]viewOtbotigEQFORWEZPU4143-86-56 18:46:00 Test Item Value Reference Range Interpretation Comments Eosinophils (test code = 4.2 See_Comment [A utomated message] The Eosinophils) system which ge nerated this result tra nsmitted reference range : <=4.0. The reference r mitra was not used to int erpret this result as normal/abnormal . [facility]viewVxeefodHRZCSLSVXQ0037-18-50 18:46:00 Test Item Value Reference Range Interpretation Comments Segs (test code = Segs) 56.4 45.0-75.0 [facility]viewUivvgcgBFTXDBQNTA2904-81-64 18:46:00 Test Item Value Reference Range Interpretation Comments Monocytes (test code = Monocytes) 10.3 2.0-12.0 [facility]viewFolzkjsWLPPFXBXUT0337-00-64 18:46:00 Test Item Value Reference Range Interpretation Comments Lymphocytes (test code = Lymphocytes) 28.0 20.0-40.0 [facility] LongviewDapsgnrIBFRGYSMZJ4552-54-52 18:46:00 Test Item Value Reference Range Interpretation Comments Monocytes # (test code 0.5 See_Comment [Aut omated message] The = Monocytes #) system which generated this result tra nsmitted reference range : <=0.8. The reference r mitra was not used to int erpret this result as normal/abnormal . [facility] LongviewGrsnwtdOCHAXDWTKX4038-86-30 18:46:00 Test Item Value Reference Range Interpretation Comments Basophils (test code = 1.1 See_Comment [Aut omated message] The Basophils) system which ge nerated this result tra nsmitted reference range : <=1.0. The reference r mitra was not used to int erpret this result as normal/abnormal . [facility]viewHgcpwpmXMJOHGTVYV2551-36-75 18:46:00 Test Item Value Reference Range Interpretation Comments Lymphocytes # (test code = Lymphocytes 1.5 1.0-5.5 #) [facility] LongviewAljueckDFDFQNDAEM2957-84-52 18:46:00 Test Item Value Reference Range Interpretation Comments Segs-Bands # (test code = Segs-Bands #) 2.9 1.5-8.1 [facility] LongviewIbqppexWNOMSZZQBC8310-17-73 18:46:00 Test Item Value Reference Range Interpretation Comments Eosinophils # (test code 0.2 See_Comment [A utomated message] The = Eosinophils #) system whic h generated this result tra nsmitted reference range : <=0.5. The reference r mitra was not used to int erpret this result as normal/abnormal . [facility] LongviewAphhtujAUOTIWGHWG9570-20-72 18:46:00 Test Item Value Reference Range Interpretation Comments Basophils # (test code 0.1 See_Comment [Aut omated message] The = Basophils #) system which generated this result tra nsmitted reference range : <=0.2. The reference r mitra was not used to int erpret this result as normal/abnormal . [facility] LongviewHwzuvsvGLXBOGTLTV7094-29-13 18:46:00 Test Item Value Reference Range Interpretation Comments PT (test code = PT) 11.2 s 12.0-14.7 [facility]viewBehbaxbKVUJREKUFB6097-61-20 18:46:00 Test Item Value Reference Range Interpretation Comments INR (test code = INR) 0.82 0.85-1.17 [facility] LongviewZtanfjlIMQAZHGEYD9830-89-68 18:46:00 Test Item Value Reference Range Interpretation Comments PTT (test code = PTT) 28.6 s 22.9-35.8 [facility] LongviewKucoyzeSKKDLSZVKQ8877-73-44 18:46:00 Test Item Value Reference Range Interpretation Comments MPV (test code = MPV) 8.1 7.4-10.4 [facility] LongviewYxshgxlBWDAMXTRCY7479-17-46 18:46:00 Test Item Value Reference Range Interpretation Comments Platelet (test code = Platelet) 301 133-450 [facility] HospitalBhublomNXOCPWQLAA3856-32-32 18:46:00 Test Item Value Reference Range Interpretation Comments RDW (test code = RDW) 14.5 11.5-14.5 [facility]viewUqrsnrzCYOAEWAUML9061-09-18 18:46:00 Test Item Value Reference Range Interpretation Comments RBC (test code = RBC) 4.84 4.70-6.10 [facility] HospitalSoinesbFFNDUJZGNP6575-51-00 18:46:00 Test Item Value Reference Range Interpretation Comments Hgb (test code = Hgb) 14.4 14.0-18.0 [facility] LongviewAqbxdlkFRVVJJTPMS8043-93-89 18:46:00 Test Item Value Reference Range Interpretation Comments WBC (test code = WBC) 5.2 3.7-10.4 [facility] LongviewDzeozegCAJCFXNMOL1336-69-08 18:46:00 Test Item Value Reference Range Interpretation Comments MCH (test code = MCH) 29.8 pg 27.0-31.0 [facility] LongviewJhcfcutXEIDYGLGBD8384-39-33 18:46:00 Test Item Value Reference Range Interpretation Comments MCV (test code = MCV) 92.0 80.0-94.0 [facility] HospitalYnilxhpEMDRXMPLQK7992-57-72 18:46:00 Test Item Value Reference Range Interpretation Comments Hct (test code = Hct) 44.5 42.0-54.0 [facility] HospitalBtfdffqADGAJROUFB1307-44-78 18:46:00 Test Item Value Reference Range Interpretation Comments MCHC (test code = MCHC) 32.4 32.0-36.[address] [facility] CenterEvwsyzjMVDMIHNETZ2405-39-92 18:46:00 Test Item Value Reference Range Interpretation Comments [place]-Hep C Ab (test Negative *NA*(07/22/14 code = [place]-Hep C 1:46 PM) Ab) [facility] AND [id number] 18:46:00 Test Item Value Reference Range Interpretation Comments UA Urobilinogen (test code = UA <=1.0 mg/dL 0.1-1.0 Urobilinogen) [facility] AND [id number] 18:46:00 Test Item Value Reference Range Interpretation Comments UA Sq Epi (test code = UA Sq Epi) None Seen [facility] AND [id number] 18:46:00 Test Item Value Reference Range Interpretation Comments UA Leuk Est (test Negative (07/22/14 1:46 code = UA Leuk Est) PM) [facility] AND [id number] 18:46:00 Test Item Value Reference Range Interpretation Comments UA Nitrite (test code Negative (07/22/14 1:46 = UA Nitrite) PM) [facility] AND [id number] 18:46:00 Test Item Value Reference Range Interpretation Comments UA Blood (test code = Negative (07/22/14 1:46 UA Blood) PM) [facility] AND [id number] 18:46:00 Test Item Value Reference Range Interpretation Comments UA Ketones (test code = UA Negative mg/dL Ketones) [facility] AND [id number] 18:46:00 Test Item Value Reference Range Interpretation Comments UA Bili (test code = Negative *NA*(07/22/14 UA Bili) 1:46 PM) [facility] AND [id number] 18:46:00 Test Item Value Reference Range Interpretation Comments UA Bacteria (test code = UA Occasional /HPF Bacteria) [facility] AND [id number] 18:46:00 Test Item Value Reference Range Interpretation Comments UA RBC (test code = no gt See_Comment [Automa elizabeth message] The UA RBC) system which ge nerated this result transmit elizabeth reference range : <=2. The reference range was not used to interpr et this result as margaret l/abnormal. [facility] AND [id number] 18:46:00 Test Item Value Reference Range Interpretation Comments UA WBC (test code = 1 See_Comment [Automa elizabeth message] The UA WBC) system which ge nerated this result transmit elizabeth reference range : <=5. The reference range was not used to interpr et this result as margaret l/abnormal. [facility] AND [id number] 18:46:00 Test Item Value Reference Range Interpretation Comments UA Glucose (test code = UA Glucose) 30 mg/dL [facility] AND [id number] 18:46:00 Test Item Value Reference Range Interpretation Comments UA Protein (test code = UA Negative mg/dL Protein) [facility] AND [id number] 18:46:00 Test Item Value Reference Range Interpretation Comments UA pH (test code = UA pH) 6.5 5.0-8.0 [facility] [id number] 18:46:00 Test Item Value Reference Range Interpretation Comments UA Turbidity (test code = Clear (07/22/14 1:46 [facility] Turbidity) PM) [facility] [id number] 18:46:00 Test Item Value Reference Range Interpretation Comments UA Spec Grav (test code = UA Spec Grav) 1.010 [facility] AND [id number] 18:46:00 Test Item Value Reference Range Interpretation Comments UA Color (test code = Light Yellow UA Color) *NA*(07/22/14 1:46 PM) [facility] [id number] 18:46:00 Test Item Value Reference Range Interpretation Comments Magnesium Lvl (test code = Magnesium 1.8 1.8-2.4 Lvl) [facility]HrhhxwcEGMUVCCCCATN0492-35-13 18:46:00 Test Item Value Reference Range Interpretation Comments AGAP (test code = AGAP) 13.2 10.0-20.0 [facility] ChildrenJnhjisnXYTSTFYIRRUV9954-26-91 18:46:00 Test Item Value Reference Range Interpretation Comments B/C Ratio (test code = B/C Ratio) 18 6-25 [facility] BranchZrfnecyUPFQFALIYZCW9174-66-62 18:46:00 Test Item Value Reference Range Interpretation Comments A/G Ratio (test code = A/G Ratio) 1.1 0.7-1.6 [facility] ChildrenAruhlwcNDXJZNMIDUKW9881-19-34 18:46:00 Test Item Value Reference Range Interpretation Comments Globulin (test code = Globulin) 3.3 2.0-4.0 [facility] ChildrenRpzhxruDLVQAGFQORGD2459-97-14 18:46:00 Test Item Value Reference Range Interpretation Comments eGFR (test code = eGFR) 99 [facility] BranchNcspilgNWNHOTPXNOXS6133-03-73 18:46:00 Test Item Value Reference Range Interpretation Comments Calcium Lvl (test code = Calcium Lvl) 9.0 8.5-10.5 [facility] ChildrenJsvwzjlRZFSXBQWKAPC6376-48-76 18:46:00 Test Item Value Reference Range Interpretation Comments Chloride Lvl (test code = Chloride Lvl) 106 95-109 [facility] BranchKzpmkehVDHTCCVGGSYD7228-27-74 18:46:00 Test Item Value Reference Range Interpretation Comments Creatinine Lvl (test code = Creatinine 0.9 0.5-1.4 Lvl) [facility] BranchYedoinvMDRMEIIXIBPE1215-92-33 18:46:00 Test Item Value Reference Range Interpretation Comments Potassium Lvl (test code = Potassium 4.2 3.5-5.1 Lvl) [facility] BranchEdpcclwZFBEXTWFMWKK1868-05-33 18:46:00 Test Item Value Reference Range Interpretation Comments Sodium Lvl (test code = Sodium Lvl) 139 135-145 [facility] BranchLanewkmEKKRXBIBFMKE8437-96-33 18:46:00 Test Item Value Reference Range Interpretation Comments CO2 (test code = CO2) 24 24-32 [facility] BranchBruuvngPZKHSMLHEDFB8683-42-37 18:46:00 Test Item Value Reference Range Interpretation Comments BUN (test code = BUN) 16 7-22 [facility] BranchRgxaelwPLOILGDLGCAR5360-74-49 18:46:00 Test Item Value Reference Range Interpretation Comments Glucose Lvl (test code = Glucose Lvl) 141 70-99 [facility] BranchUmllbzsISXJXBBHJDQM0646-62-36 18:46:00 Test Item Value Reference Range Interpretation Comments Albumin Lvl (test code = Albumin Lvl) 3.6 3.5-5.0 [facility] BranchJjwbrubBPIWQZFHQNAK8019-64-30 18:46:00 Test Item Value Reference Range Interpretation Comments Alk Phos (test code = Alk Phos) 65 39-136 [facility] BranchUsjfqjqHXIBCJRAAXGP9568-82-76 18:46:00 Test Item Value Reference Range Interpretation Comments Bili Total (test code = Bili Total) 0.3 0.2-1.3 [facility] BranchDgtfdsxQKWDGTIUXVSZ0494-39-44 18:46:00 Test Item Value Reference Range Interpretation Comments ALT (test code = ALT) 100 See_Comment [Auto mated message] The system which ge nerated this result transmit elizabeth reference range : <=65. The reference range was not used to interpr et this result as margaret l/abnormal. [facility] BranchSknvvyzWGPYBRYWHJNY4101-32-27 18:46:00 Test Item Value Reference Range Interpretation Comments AST (test code = AST) 53 See_Comment [Auto mated message] The system which ge nerated this result transmit elizabeth reference range : <=37. The reference range was not used to interpr et this result as margaret l/abnormal. [facility] BranchWkwemgsBYWVAQEBMRRZ4130-86-05 18:46:00 Test Item Value Reference Range Interpretation Comments Total Protein (test code = Total 6.9 6.4-8.4 Protein) [facility]viewIjsnfiePPMPPMHRLX2163-29-50 18:46:00 Test Item Value Reference Range Interpretation Comments Eosinophils (test code = 4.2 See_Comment [A utomated message] The Eosinophils) system which ge nerated this result tra nsmitted reference range : <=4.0. The reference r mitra was not used to int erpret this result as normal/abnormal . [facility]viewPibzbvaOIUOEDXGDL4376-27-74 18:46:00 Test Item Value Reference Range Interpretation Comments Segs (test code = Segs) 56.4 45.0-75.0 [facility]viewGoxjgtnUHHGTGHDNQ6345-66-28 18:46:00 Test Item Value Reference Range Interpretation Comments Monocytes (test code = Monocytes) 10.3 2.0-12.0 [facility]viewQwjlhoaIARALSUIOG6780-33-97 18:46:00 Test Item Value Reference Range Interpretation Comments Lymphocytes (test code = Lymphocytes) 28.0 20.0-40.0 [facility]viewVqzesllJZBFULPUQI0347-43-19 18:46:00 Test Item Value Reference Range Interpretation Comments Monocytes # (test code 0.5 See_Comment [Aut omated message] The = Monocytes #) system which generated this result tra nsmitted reference range : <=0.8. The reference r mitra was not used to int erpret this result as normal/abnormal . [facility] LongviewTqyzhdzIYUJPFUYUN9419-64-44 18:46:00 Test Item Value Reference Range Interpretation Comments Basophils (test code = 1.1 See_Comment [Aut omated message] The Basophils) system which ge nerated this result tra nsmitted reference range : <=1.0. The reference r mitra was not used to int erpret this result as normal/abnormal . [facility] LongviewCajewopHXAGNQSITJ8919-06-59 18:46:00 Test Item Value Reference Range Interpretation Comments Lymphocytes # (test code = Lymphocytes 1.5 1.0-5.5 #) [facility] LongviewAwdjutwBLESLJLHJD0683-44-93 18:46:00 Test Item Value Reference Range Interpretation Comments Segs-Bands # (test code = Segs-Bands #) 2.9 1.5-8.1 [facility] LongviewNdhoevfMQGAJAYYQR4442-10-85 18:46:00 Test Item Value Reference Range Interpretation Comments Eosinophils # (test code 0.2 See_Comment [A utomated message] The = Eosinophils #) system whic h generated this result tra nsmitted reference range : <=0.5. The reference r mitra was not used to int erpret this result as normal/abnormal . [facility] LongviewLngkjcfAJLVOTIHTO4667-52-25 18:46:00 Test Item Value Reference Range Interpretation Comments Basophils # (test code 0.1 See_Comment [Aut omated message] The = Basophils #) system which generated this result tra nsmitted reference range : <=0.2. The reference r mitra was not used to int erpret this result as normal/abnormal . [facility] LongviewLgnxsycMRFFWHRZCM5741-87-66 18:46:00 Test Item Value Reference Range Interpretation Comments PT (test code = PT) 11.2 s 12.0-14.7 [facility] LongviewIvaponxXWUHNYXICM8009-89-32 18:46:00 Test Item Value Reference Range Interpretation Comments INR (test code = INR) 0.82 0.85-1.17 [facility]viewMaiqfamUEZUFWPMRI4577-43-21 18:46:00 Test Item Value Reference Range Interpretation Comments PTT (test code = PTT) 28.6 s 22.9-35.8 [facility] LongviewFbdbfaxJGHLVUAECT4708-58-53 18:46:00 Test Item Value Reference Range Interpretation Comments MPV (test code = MPV) 8.1 7.4-10.4 [facility]viewLbvptmzVAKNHTUHLY0615-58-66 18:46:00 Test Item Value Reference Range Interpretation Comments Platelet (test code = Platelet) 301 133-450 [facility] LongviewRdkurmrMIFVZKKYQP0582-59-38 18:46:00 Test Item Value Reference Range Interpretation Comments RDW (test code = RDW) 14.5 11.5-14.5 [facility] LongviewUoyequdMXNRRTFVDK5289-80-99 18:46:00 Test Item Value Reference Range Interpretation Comments RBC (test code = RBC) 4.84 4.70-6.10 [facility] LongviewBgdchnxASFUEQCWJW9538-34-79 18:46:00 Test Item Value Reference Range Interpretation Comments Hgb (test code = Hgb) 14.4 14.0-18.[address] [facility] CenterVrkxvpbALRRNZAWFJ2243-32-02 18:46:00 Test Item Value Reference Range Interpretation Comments WBC (test code = WBC) 5.2 3.7-10.4 [facility] TgnpzuiWHOSPYSUBI2063-91-85 18:46:00 Test Item Value Reference Range Interpretation Comments MCH (test code = MCH) 29.8 pg 27.0-31.0 [facility]NxdmsacGBXMXRIYMV8724-77-93 18:46:00 Test Item Value Reference Range Interpretation Comments MCV (test code = MCV) 92.0 80.0-94.[address] [facility] [address] CenterQnhfqpeJJULZSLFXG8077-19-75 18:46:00 Test Item Value Reference Range Interpretation Comments Hct (test code = Hct) 44.5 42.0-54.0 [facility] HospitalWinvkisLTPNQXIWJF0283-80-58 18:46:00 Test Item Value Reference Range Interpretation Comments MCHC (test code = MCHC) 32.4 32.0-36.[address] [facility] [address] CenterGlhaukvGQINHWZKSX7912-13-55 18:46:00 Test Item Value Reference Range Interpretation Comments [place]-Hep C Ab (test Negative *NA*(07/22/14 code = [place]-Hep C 1:46 PM) Ab) [facility] AND [id number] 18:46:00 Test Item Value Reference Range Interpretation Comments UA Urobilinogen (test code = UA <=1.0 mg/dL 0.1-1.0 Urobilinogen) [facility] AND [id number] 18:46:00 Test Item Value Reference Range Interpretation Comments UA Sq Epi (test code = UA Sq Epi) None Seen [facility] AND [id number] 18:46:00 Test Item Value Reference Range Interpretation Comments UA Leuk Est (test Negative (07/22/14 1:46 code = UA Leuk Est) PM) [facility] AND [id number] 18:46:00 Test Item Value Reference Range Interpretation Comments UA Nitrite (test code Negative (07/22/14 1:46 = UA Nitrite) PM) [facility] AND [id number] 18:46:00 Test Item Value Reference Range Interpretation Comments UA Blood (test code = Negative (07/22/14 1:46 UA Blood) PM) [facility] AND [id number] 18:46:00 Test Item Value Reference Range Interpretation Comments UA Ketones (test code = UA Negative mg/dL Ketones) [facility] AND [id number] 18:46:00 Test Item Value Reference Range Interpretation Comments UA Bili (test code = Negative *NA*(07/22/14 UA Bili) 1:46 PM) [facility] AND [id number] 18:46:00 Test Item Value Reference Range Interpretation Comments UA Bacteria (test code = UA Occasional /HPF Bacteria) [facility] AND [id number] 18:46:00 Test Item Value Reference Range Interpretation Comments UA RBC (test code = no gt See_Comment [Automa elizabeth message] The UA RBC) system which ge nerated this result transmit elizabeth reference range : <=2. The reference range was not used to interpr et this result as margaret l/abnormal. [facility] AND [id number] 18:46:00 Test Item Value Reference Range Interpretation Comments UA WBC (test code = 1 See_Comment [Automa elizabeth message] The UA WBC) system which ge nerated this result transmit elizabeth reference range : <=5. The reference range was not used to interpr et this result as margaret l/abnormal. [facility] AND [id number] 18:46:00 Test Item Value Reference Range Interpretation Comments UA Glucose (test code = UA Glucose) 30 mg/dL [facility] AND [id number] 18:46:00 Test Item Value Reference Range Interpretation Comments UA Protein (test code = UA Negative mg/dL Protein) [facility] AND [id number] 18:46:00 Test Item Value Reference Range Interpretation Comments UA pH (test code = UA pH) 6.5 5.0-8.0 [facility] AND [id number] 18:46:00 Test Item Value Reference Range Interpretation Comments UA Turbidity (test code = Clear (07/22/14 1:46 UA Turbidity) PM) [facility] AND [id number] 18:46:00 Test Item Value Reference Range Interpretation Comments UA Spec Grav (test code = UA Spec Grav) 1.010 [facility] AND [id number] 18:46:00 Test Item Value Reference Range Interpretation Comments UA Color (test code = Light Yellow UA Color) *NA*(07/22/14 1:46 PM) [facility]2015-06-09 18:46:00 Test Item Value Reference Range Interpretation Comments Magnesium Lvl (test code = Magnesium 1.8 1.8-2.4 Lvl) [facility] BranchIjrsmygKNEVUFCNCRRE8360-01-05 18:46:00 Test Item Value Reference Range Interpretation Comments AGAP (test code = AGAP) 13.2 10.0-20.0 [facility] BranchQoinhspEZWZIEFCREMY5511-32-78 18:46:00 Test Item Value Reference Range Interpretation Comments B/C Ratio (test code = B/C Ratio) 18 6-25 [facility] BranchLvdsnpmWDUOCPRWHTLE2653-09-50 18:46:00 Test Item Value Reference Range Interpretation Comments A/G Ratio (test code = A/G Ratio) 1.1 0.7-1.6 [facility] BranchBvvveocTVHAFXFQHIKG0100-29-29 18:46:00 Test Item Value Reference Range Interpretation Comments Globulin (test code = Globulin) 3.3 2.0-4.0 [facility] BranchBrvzztiGKVEVTSGJDNG7688-64-60 18:46:00 Test Item Value Reference Range Interpretation Comments eGFR (test code = eGFR) 99 [facility] BranchPilmchxXFVQREIGHNOQ6100-07-21 18:46:00 Test Item Value Reference Range Interpretation Comments Calcium Lvl (test code = Calcium Lvl) 9.0 8.5-10.5 [facility] BranchRuyqeybZESPGHLVTBMK2448-07-29 18:46:00 Test Item Value Reference Range Interpretation Comments Chloride Lvl (test code = Chloride Lvl) 106 95-109 [facility] BranchUfpckxhJPUSOVNHFFVN5158-00-76 18:46:00 Test Item Value Reference Range Interpretation Comments Creatinine Lvl (test code = Creatinine 0.9 0.5-1.4 Lvl) [facility] BranchTpftqwkFQWPYEONORCR5414-34-06 18:46:00 Test Item Value Reference Range Interpretation Comments Potassium Lvl (test code = Potassium 4.2 3.5-5.1 Lvl) [facility] BranchYwrspdrRTANJHBAKOJY3233-98-21 18:46:00 Test Item Value Reference Range Interpretation Comments Sodium Lvl (test code = Sodium Lvl) 139 135-145 [facility] BranchNyzkwwwJVKKNZLLLWHG2610-77-64 18:46:00 Test Item Value Reference Range Interpretation Comments CO2 (test code = CO2) 24 24-32 [facility] BranchXoalkdbWBOXZOCXDIAO9768-55-98 18:46:00 Test Item Value Reference Range Interpretation Comments BUN (test code = BUN) 16 7-22 [facility] BranchOzquvedWHLOAQOZNLDH1766-24-91 18:46:00 Test Item Value Reference Range Interpretation Comments Glucose Lvl (test code = Glucose Lvl) 141 70-99 [facility] BranchEmmmmabDELULWLMXUGW9720-55-08 18:46:00 Test Item Value Reference Range Interpretation Comments Albumin Lvl (test code = Albumin Lvl) 3.6 3.5-5.0 [facility] BranchFhtpidrBNXILSZRUTRH7714-73-63 18:46:00 Test Item Value Reference Range Interpretation Comments Alk Phos (test code = Alk Phos) 65 39-136 [facility] BranchVpwqthvQMPPVCMRCQQK2712-38-76 18:46:00 Test Item Value Reference Range Interpretation Comments Bili Total (test code = Bili Total) 0.3 0.2-1.3 [facility] BranchWwfipdfOCLZJWSVWZKJ1368-21-69 18:46:00 Test Item Value Reference Range Interpretation Comments ALT (test code = ALT) 100 See_Comment [Auto mated message] The system which ge nerated this result transmit elizabeth reference range : <=65. The reference range was not used to interpr et this result as margaret l/abnormal. [facility] BranchSucjnibRXNZNHTLBGZB0198-66-83 18:46:00 Test Item Value Reference Range Interpretation Comments AST (test code = AST) 53 See_Comment [Auto mated message] The system which ge nerated this result transmit elizabeth reference range : <=37. The reference range was not used to interpr et this result as margaret l/abnormal. [facility] BranchWdfeyvkIOHFXYLOFETX9817-35-67 18:46:00 Test Item Value Reference Range Interpretation Comments Total Protein (test code = Total 6.9 6.4-8.4 Protein) [facility]viewEhnnqrxNWLRJMLXTV9540-14-49 18:46:00 Test Item Value Reference Range Interpretation Comments Eosinophils (test code = 4.2 See_Comment [A utomated message] The Eosinophils) system which ge nerated this result tra nsmitted reference range : <=4.0. The reference r mitra was not used to int erpret this result as normal/abnormal . [facility] LongviewCtpgldmYGZWDGCAWK8579-44-98 18:46:00 Test Item Value Reference Range Interpretation Comments Segs (test code = Segs) 56.4 45.0-75.0 [facility] LongviewNrogjhpEUIMPGNBGI1610-23-36 18:46:00 Test Item Value Reference Range Interpretation Comments Monocytes (test code = Monocytes) 10.3 2.0-12.0 [facility]viewVksqtgeGRGHAFTJKM6824-12-74 18:46:00 Test Item Value Reference Range Interpretation Comments Lymphocytes (test code = Lymphocytes) 28.0 20.0-40.0 [facility] LongviewJzsfghoWVANCVMIAD1847-10-22 18:46:00 Test Item Value Reference Range Interpretation Comments Monocytes # (test code 0.5 See_Comment [Aut omated message] The = Monocytes #) system which generated this result tra nsmitted reference range : <=0.8. The reference r mitra was not used to int erpret this result as normal/abnormal . [facility]viewIhketabLJYYCGQNKQ2149-11-38 18:46:00 Test Item Value Reference Range Interpretation Comments Basophils (test code = 1.1 See_Comment [Aut omated message] The Basophils) system which ge nerated this result tra nsmitted reference range : <=1.0. The reference r mitra was not used to int erpret this result as normal/abnormal . [facility]viewGwqssqcTXLNWBCLPO3807-86-27 18:46:00 Test Item Value Reference Range Interpretation Comments Lymphocytes # (test code = Lymphocytes 1.5 1.0-5.5 #) [facility]viewVkuepjjIFJGEZTHEN8254-57-19 18:46:00 Test Item Value Reference Range Interpretation Comments Segs-Bands # (test code = Segs-Bands #) 2.9 1.5-8.1 [facility]viewCgvzqgjLIQEAWZBCY2714-15-64 18:46:00 Test Item Value Reference Range Interpretation Comments Eosinophils # (test code 0.2 See_Comment [A utomated message] The = Eosinophils #) system whic h generated this result tra nsmitted reference range : <=0.5. The reference r mitra was not used to int erpret this result as normal/abnormal . [facility] LongviewDsjnwfrZIHXHJJGVG6167-37-79 18:46:00 Test Item Value Reference Range Interpretation Comments Basophils # (test code 0.1 See_Comment [Aut omated message] The = Basophils #) system which generated this result tra nsmitted reference range : <=0.2. The reference r mitra was not used to int erpret this result as normal/abnormal . [facility] LongviewOfbyptpRWUIERQINJ2431-29-36 18:46:00 Test Item Value Reference Range Interpretation Comments PT (test code = PT) 11.2 s 12.0-14.7 [facility] LongviewEqwdxvsUYRGCVTPEI7237-03-48 18:46:00 Test Item Value Reference Range Interpretation Comments INR (test code = INR) 0.82 0.85-1.17 [facility] LongviewLojcukzNPDICASTQT9845-35-93 18:46:00 Test Item Value Reference Range Interpretation Comments PTT (test code = PTT) 28.6 s 22.9-35.8 [facility] LongviewMgxxvitRPPVZQTRFL6353-13-13 18:46:00 Test Item Value Reference Range Interpretation Comments MPV (test code = MPV) 8.1 7.4-10.4 [facility] LongviewJgiojccXQKMVQKAJB0687-95-21 18:46:00 Test Item Value Reference Range Interpretation Comments Platelet (test code = Platelet) 301 133-450 [facility] LongviewXexpnsoJUSOBNNHUS3024-07-84 18:46:00 Test Item Value Reference Range Interpretation Comments RDW (test code = RDW) 14.5 11.5-14.5 [facility] LongviewGtbxqyyODLGHKODRK1689-29-53 18:46:00 Test Item Value Reference Range Interpretation Comments RBC (test code = RBC) 4.84 4.70-6.10 [facility] LongviewImadzybJLWNBHUVGS5061-43-28 18:46:00 Test Item Value Reference Range Interpretation Comments Hgb (test code = Hgb) 14.4 14.0-18.0 [facility] LongviewRbruvzbQBZIOFABFN8462-58-85 18:46:00 Test Item Value Reference Range Interpretation Comments WBC (test code = WBC) 5.2 3.7-10.4 [facility] LongviewCqeaultFIUNGUNHDF1113-13-41 18:46:00 Test Item Value Reference Range Interpretation Comments MCH (test code = MCH) 29.8 pg 27.0-31.0 [facility]viewJjxfzvjYZDCQSRBXY9814-56-52 18:46:00 Test Item Value Reference Range Interpretation Comments MCV (test code = MCV) 92.0 80.0-94.0 [facility] LongviewRusesesPZHBRAVADV3591-42-42 18:46:00 Test Item Value Reference Range Interpretation Comments Hct (test code = Hct) 44.5 42.0-54.0 [facility] YopppsmROKFVZCYOX3900-01-06 18:46:00 Test Item Value Reference Range Interpretation Comments MCHC (test code = MCHC) 32.4 32.0-36.0 [facility] CkuwuclPILZCTLZHQ4879-50-11 18:46:00 Test Item Value Reference Range Interpretation Comments [place]-Hep C Ab (test Negative *NA*(07/22/14 code = [place]-Hep C 1:46 PM) Ab) [facility] [id number] 18:46:00 Test Item Value Reference Range Interpretation Comments UA Urobilinogen (test code = UA <=1.0 mg/dL 0.1-1.0 Urobilinogen) [facility] [id number] 18:46:00 Test Item Value Reference Range Interpretation Comments UA Sq Epi (test code = UA Sq Epi) None [facility]en [facility] [id number] 18:46:00 Test Item Value Reference Range Interpretation Comments UA Leuk Est (test Negative (07/22/14 1:46 code = UA Leuk Est) PM) [facility] [id number] 18:46:00 Test Item Value Reference Range Interpretation Comments UA Nitrite (test code Negative (07/22/14 1:46 = UA Nitrite) PM) [facility] [id number] 18:46:00 Test Item Value Reference Range Interpretation Comments UA Blood (test code = Negative (07/22/14 1:46 [facility]) PM) [facility] [id number] 18:46:00 Test Item Value Reference Range Interpretation Comments UA Ketones (test code = UA Negative mg/dL Ketones) [facility] [id number] 18:46:00 Test Item Value Reference Range Interpretation Comments UA Bili (test code = Negative *NA*(07/22/14 UA Bili) 1:46 PM) [facility] [id number] 18:46:00 Test Item Value Reference Range Interpretation Comments UA Bacteria (test code = UA Occasional /HPF Bacteria) [facility] [id number] 18:46:00 Test Item Value Reference Range Interpretation Comments UA RBC (test code = no gt See_Comment [Automa elizabeth message] The UA RBC) system which ge nerated this result transmit elizabeth reference range : <=2. The reference range was not used to interpr et this result as margaret l/abnormal. [facility] AND [id number] 18:46:00 Test Item Value Reference Range Interpretation Comments UA WBC (test code = 1 See_Comment [Automa elizabeth message] The UA WBC) system which ge nerated this result transmit elizabeth reference range : <=5. The reference range was not used to interpr et this result as margaret l/abnormal. [facility] AND [id number] 18:46:00 Test Item Value Reference Range Interpretation Comments UA Glucose (test code = UA Glucose) 30 mg/dL [facility] AND [id number] 18:46:00 Test Item Value Reference Range Interpretation Comments UA Protein (test code = UA Negative mg/dL Protein) [facility] AND [id number] 18:46:00 Test Item Value Reference Range Interpretation Comments UA pH (test code = UA pH) 6.5 5.0-8.0 [facility] AND [id number] 18:46:00 Test Item Value Reference Range Interpretation Comments UA Turbidity (test code = Clear (07/22/14 1:46 UA Turbidity) PM) [facility] AND [id number] 18:46:00 Test Item Value Reference Range Interpretation Comments UA Spec Grav (test code = UA Spec Grav) 1.010 [facility] AND [id number] 18:46:00 Test Item Value Reference Range Interpretation Comments UA Color (test code = Light Yellow UA Color) *NA*(07/22/14 1:46 PM) [facility] [id number] 18:46:00 Test Item Value Reference Range Interpretation Comments Magnesium Lvl (test code = Magnesium 1.8 1.8-2.4 Lvl) [facility]WqbwsbgWNFBRBVUVFTP5088-84-35 18:46:00 Test Item Value Reference Range Interpretation Comments AGAP (test code = AGAP) 13.2 10.0-20.0 [facility] ChildrenPwteauaSBWUEBRKQEVA7392-39-89 18:46:00 Test Item Value Reference Range Interpretation Comments B/C Ratio (test code = B/C Ratio) 18 6-25 [facility]EtvuydpYILOGRNBUKJS3093-71-47 18:46:00 Test Item Value Reference Range Interpretation Comments A/G Ratio (test code = A/G Ratio) 1.1 0.7-1.6 [facility] BranchPloyxrqXZLGLBPWLLRD2132-35-07 18:46:00 Test Item Value Reference Range Interpretation Comments Globulin (test code = Globulin) 3.3 2.0-4.0 [facility] BranchWfxmqpuMSGDVIOIFVTL7606-99-71 18:46:00 Test Item Value Reference Range Interpretation Comments eGFR (test code = eGFR) 99 [facility] BranchYcgssnrADUJGJJLFYJP6049-18-73 18:46:00 Test Item Value Reference Range Interpretation Comments Calcium Lvl (test code = Calcium Lvl) 9.0 8.5-10.5 [facility] BranchPwfqqbxJDBKPASVVRJV7350-75-09 18:46:00 Test Item Value Reference Range Interpretation Comments Chloride Lvl (test code = Chloride Lvl) 106 95-109 [facility] BranchOkoatjwEGVFPFWEJOWA3509-50-69 18:46:00 Test Item Value Reference Range Interpretation Comments Creatinine Lvl (test code = Creatinine 0.9 0.5-1.4 Lvl) [facility] BranchDqrsksuXJKKWTUVPHQC0520-28-78 18:46:00 Test Item Value Reference Range Interpretation Comments Potassium Lvl (test code = Potassium 4.2 3.5-5.1 Lvl) [facility] BranchKafcqspIDXNEQEWWPRB7762-90-91 18:46:00 Test Item Value Reference Range Interpretation Comments Sodium Lvl (test code = Sodium Lvl) 139 135-145 [facility] BranchNtdzzcyXBLIYYGZIARM1150-82-55 18:46:00 Test Item Value Reference Range Interpretation Comments CO2 (test code = CO2) 24 24-32 [facility] BranchQpbaualBVAVBOEIJDHT9189-08-06 18:46:00 Test Item Value Reference Range Interpretation Comments BUN (test code = BUN) 16 7-22 [facility] BranchYxowwyjUIRJCXFRTUPL9819-11-96 18:46:00 Test Item Value Reference Range Interpretation Comments Glucose Lvl (test code = Glucose Lvl) 141 70-99 [facility] BranchUnvwigsAYSTNWBOEXIU3494-25-95 18:46:00 Test Item Value Reference Range Interpretation Comments Albumin Lvl (test code = Albumin Lvl) 3.6 3.5-5.0 [facility] BranchSohmphzOCUSRWHZOFLW8789-86-46 18:46:00 Test Item Value Reference Range Interpretation Comments Alk Phos (test code = Alk Phos) 65 39-136 [facility] BranchZfuubfrVHGJIJCLGIKX3074-19-52 18:46:00 Test Item Value Reference Range Interpretation Comments Bili Total (test code = Bili Total) 0.3 0.2-1.3 [facility] BranchNnosdonEKLDGQAFDSAX5939-76-87 18:46:00 Test Item Value Reference Range Interpretation Comments ALT (test code = ALT) 100 See_Comment [Auto mated message] The system which ge nerated this result transmit elizabeth reference range : <=65. The reference range was not used to interpr et this result as margaret l/abnormal. [facility] BranchWxdhlzoDALVCYLZVTET9912-73-25 18:46:00 Test Item Value Reference Range Interpretation Comments AST (test code = AST) 53 See_Comment [Auto mated message] The system which ge nerated this result transmit elizabeth reference range : <=37. The reference range was not used to interpr et this result as margaret l/abnormal. [facility] BranchHuhuuhhOGFSXESHABYG2250-88-07 18:46:00 Test Item Value Reference Range Interpretation Comments Total Protein (test code = Total 6.9 6.4-8.4 Protein) [facility]viewKhydrjuSXBDVYFAIE9613-37-69 18:46:00 Test Item Value Reference Range Interpretation Comments Eosinophils (test code = 4.2 See_Comment [A utomated message] The Eosinophils) system which ge nerated this result tra nsmitted reference range : <=4.0. The reference r mitra was not used to int erpret this result as normal/abnormal . [facility]viewYpcrgioBWIEERFPZU7013-34-58 18:46:00 Test Item Value Reference Range Interpretation Comments Segs (test code = Segs) 56.4 45.0-75.0 [facility]viewTdqgpppRILEOPZDOW2967-07-95 18:46:00 Test Item Value Reference Range Interpretation Comments Monocytes (test code = Monocytes) 10.3 2.0-12.0 [facility]viewEpywsflQUDPBILIMO2485-76-18 18:46:00 Test Item Value Reference Range Interpretation Comments Lymphocytes (test code = Lymphocytes) 28.0 20.0-40.0 [facility]viewHbwhviiBEHJJQJNHU3684-41-32 18:46:00 Test Item Value Reference Range Interpretation Comments Monocytes # (test code 0.5 See_Comment [Aut omated message] The = Monocytes #) system which generated this result tra nsmitted reference range : <=0.8. The reference r mitra was not used to int erpret this result as normal/abnormal . [facility]viewOqalsvxKSXNBGTPNU5112-72-85 18:46:00 Test Item Value Reference Range Interpretation Comments Basophils (test code = 1.1 See_Comment [Aut omated message] The Basophils) system which ge nerated this result tra nsmitted reference range : <=1.0. The reference r mitra was not used to int erpret this result as normal/abnormal . [facility] LongviewDgaboacKVFJJHTNTY9942-48-66 18:46:00 Test Item Value Reference Range Interpretation Comments Lymphocytes # (test code = Lymphocytes 1.5 1.0-5.5 #) [facility]viewNmiqexlTZIQIPZFVX9966-02-80 18:46:00 Test Item Value Reference Range Interpretation Comments Segs-Bands # (test code = Segs-Bands #) 2.9 1.5-8.1 [facility]viewNnzrqhwGIXSBZXVXM3261-84-99 18:46:00 Test Item Value Reference Range Interpretation Comments Eosinophils # (test code 0.2 See_Comment [A utomated message] The = Eosinophils #) system whic h generated this result tra nsmitted reference range : <=0.5. The reference r mitra was not used to int erpret this result as normal/abnormal . [facility]viewAfsbqzkBNMKTKOGXO7985-91-62 18:46:00 Test Item Value Reference Range Interpretation Comments Basophils # (test code 0.1 See_Comment [Aut omated message] The = Basophils #) system which generated this result tra nsmitted reference range : <=0.2. The reference r mitra was not used to int erpret this result as normal/abnormal . [facility]viewEicxsywITOXFFRNZG3576-16-83 18:46:00 Test Item Value Reference Range Interpretation Comments PT (test code = PT) 11.2 s 12.0-14.7 [facility]viewKwvdwczUBCIRKXNNJ7973-13-28 18:46:00 Test Item Value Reference Range Interpretation Comments INR (test code = INR) 0.82 0.85-1.17 [facility]viewNtnrrodWSZGJBTEGN7916-62-66 18:46:00 Test Item Value Reference Range Interpretation Comments PTT (test code = PTT) 28.6 s 22.9-35.8 [facility]BtfxrwqZKECHXHPLV1498-[facility]-25 18:46:00 Test Item Value Reference Range Interpretation Comments MPV (test code = MPV) 8.1 7.4-10.4 [facility] HospitalDcucyhvXUTRTGRMZU8787-74-93 18:46:00 Test Item Value Reference Range Interpretation Comments Platelet (test code = Platelet) 301 133-450 [facility] HospitalIwdaslxSOIPYTXGAU5045-25-04 18:46:00 Test Item Value Reference Range Interpretation Comments RDW (test code = RDW) 14.5 11.5-14.5 [facility] HospitalKnokjiiPRRHCOVWQT2514-84-56 18:46:00 Test Item Value Reference Range Interpretation Comments RBC (test code = RBC) 4.84 4.70-6.10 [facility] HospitalUanxvuhHSUIEJYKMM5935-40-28 18:46:00 Test Item Value Reference Range Interpretation Comments Hgb (test code = Hgb) 14.4 14.0-18.0 [facility] HospitalFoillreXSKKYEWJMZ6294-21-25 18:46:00 Test Item Value Reference Range Interpretation Comments WBC (test code = WBC) 5.2 3.7-10.4 [facility] HospitalDclfxhzAMRFLJPBOA8062-34-84 18:46:00 Test Item Value Reference Range Interpretation Comments MCH (test code = MCH) 29.8 pg 27.0-31.0 [facility] HospitalHbpjymyLKIUBURLCH7052-40-92 18:46:00 Test Item Value Reference Range Interpretation Comments MCV (test code = MCV) 92.0 80.0-94.[address] [facility] CenterTdbgngxMRTTPIHVCL4477-67-53 18:46:00 Test Item Value Reference Range Interpretation Comments Hct (test code = Hct) 44.5 42.0-54.0 [facility] HospitalExmnczzZCXUYJYIIK0040-75-54 18:46:00 Test Item Value Reference Range Interpretation Comments MCHC (test code = MCHC) 32.4 32.0-36.0 [facility]YokqmyvIAMYUYLQGM3245-87-14 18:46:00 Test Item Value Reference Range Interpretation Comments [place]-Hep C Ab (test Negative *NA*(07/22/14 code = [place]-Hep C 1:46 PM) Ab) [facility] AND [id number] 18:46:00 Test Item Value Reference Range Interpretation Comments UA Urobilinogen (test code = UA <=1.0 mg/dL 0.1-1.0 Urobilinogen) [facility] AND [id number] 18:46:00 Test Item Value Reference Range Interpretation Comments UA Sq Epi (test code = UA Sq Epi) None Seen [facility] AND [id number] 18:46:00 Test Item Value Reference Range Interpretation Comments UA Leuk Est (test Negative (07/22/14 1:46 code = UA Leuk Est) PM) [facility] AND [id number] 18:46:00 Test Item Value Reference Range Interpretation Comments UA Nitrite (test code Negative (07/22/14 1:46 = UA Nitrite) PM) [facility] AND [id number] 18:46:00 Test Item Value Reference Range Interpretation Comments UA Blood (test code = Negative (07/22/14 1:46 UA Blood) PM) [facility] AND [id number] 18:46:00 Test Item Value Reference Range Interpretation Comments UA Ketones (test code = UA Negative mg/dL Ketones) [facility] AND [id number] 18:46:00 Test Item Value Reference Range Interpretation Comments UA Bili (test code = Negative *NA*(07/22/14 UA Bili) 1:46 PM) [facility] AND [id number] 18:46:00 Test Item Value Reference Range Interpretation Comments UA Bacteria (test code = UA Occasional /HPF Bacteria) [facility] AND [id number] 18:46:00 Test Item Value Reference Range Interpretation Comments UA RBC (test code = no gt See_Comment [Automa elizabeth message] The UA RBC) system which ge nerated this result transmit elizabeth reference range : <=2. The reference range was not used to interpr et this result as margaret l/abnormal. [facility] AND [id number] 18:46:00 Test Item Value Reference Range Interpretation Comments UA WBC (test code = 1 See_Comment [Automa elizabeth message] The UA WBC) system which ge nerated this result transmit elizabeth reference range : <=5. The reference range was not used to interpr et this result as margaret l/abnormal. [facility] AND [id number] 18:46:00 Test Item Value Reference Range Interpretation Comments UA Glucose (test code = UA Glucose) 30 mg/dL [facility] AND [id number] 18:46:00 Test Item Value Reference Range Interpretation Comments UA Protein (test code = UA Negative mg/dL Protein) [facility] AND [id number] 18:46:00 Test Item Value Reference Range Interpretation Comments UA pH (test code = UA pH) 6.5 5.0-8.0 [facility] AND [id number] 18:46:00 Test Item Value Reference Range Interpretation Comments UA Turbidity (test code = Clear (07/22/14 1:46 UA Turbidity) PM) [facility] AND [id number] 18:46:00 Test Item Value Reference Range Interpretation Comments UA Spec Grav (test code = UA Spec Grav) 1.010 [facility] AND [id number] 18:46:00 Test Item Value Reference Range Interpretation Comments UA Color (test code = Light Yellow UA Color) *NA*(07/22/14 1:46 PM) [facility] [id number] 18:46:00 Test Item Value Reference Range Interpretation Comments Magnesium Lvl (test code = Magnesium 1.8 1.8-2.4 Lvl) [facility] BranchMhxhavcKJHXLUPBONXF3482-34-19 18:46:00 Test Item Value Reference Range Interpretation Comments AGAP (test code = AGAP) 13.2 10.0-20.0 [facility] BranchXskcgnxNGZAQJLHIQIW7771-69-50 18:46:00 Test Item Value Reference Range Interpretation Comments B/C Ratio (test code = B/C Ratio) 18 6-25 [facility] BranchKfrklttNNZWZJJFLAAG1560-16-36 18:46:00 Test Item Value Reference Range Interpretation Comments A/G Ratio (test code = A/G Ratio) 1.1 0.7-1.6 [facility] BranchDrjbnuoNXSLTLARBXRQ8067-97-57 18:46:00 Test Item Value Reference Range Interpretation Comments Globulin (test code = Globulin) 3.3 2.0-4.0 [facility] BranchIcdlkxyLMWMBDBZEVRA6820-34-88 18:46:00 Test Item Value Reference Range Interpretation Comments eGFR (test code = eGFR) 99 [facility] BranchNwhvpxvIMRWTEGEHXRG4567-61-49 18:46:00 Test Item Value Reference Range Interpretation Comments Calcium Lvl (test code = Calcium Lvl) 9.0 8.5-10.5 [facility] BranchKcxdyosDLILSDVSMCDB6399-68-57 18:46:00 Test Item Value Reference Range Interpretation Comments Chloride Lvl (test code = Chloride Lvl) 106 95-109 [facility] BranchFzkcxtmVAARRRLZQESY7037-69-01 18:46:00 Test Item Value Reference Range Interpretation Comments Creatinine Lvl (test code = Creatinine 0.9 0.5-1.4 Lvl) [facility] BranchNpwsxxoVILTHGGJFSPX3259-80-74 18:46:00 Test Item Value Reference Range Interpretation Comments Potassium Lvl (test code = Potassium 4.2 3.5-5.1 Lvl) [facility] BranchKdxndtuRGWNWUUPMCZM7515-05-65 18:46:00 Test Item Value Reference Range Interpretation Comments Sodium Lvl (test code = Sodium Lvl) 139 135-145 [facility] BranchXiwkqmnHUGSUPOGBHYV0809-60-00 18:46:00 Test Item Value Reference Range Interpretation Comments CO2 (test code = CO2) 24 24-32 [facility] BranchBscvpxwWSROSNAHQFYV6147-97-77 18:46:00 Test Item Value Reference Range Interpretation Comments BUN (test code = BUN) 16 7-22 [facility] BranchInpnablZFJASJVMAYEY4139-28-84 18:46:00 Test Item Value Reference Range Interpretation Comments Glucose Lvl (test code = Glucose Lvl) 141 70-99 [facility] BranchXbdrvesKTKQGMEECJMR2816-57-46 18:46:00 Test Item Value Reference Range Interpretation Comments Albumin Lvl (test code = Albumin Lvl) 3.6 3.5-5.0 [facility] BranchFzdjajcZRCRTFQIJMYT5951-33-40 18:46:00 Test Item Value Reference Range Interpretation Comments Alk Phos (test code = Alk Phos) 65 39-136 [facility] BranchLcueadeWCMCOGWGCMRJ8594-07-86 18:46:00 Test Item Value Reference Range Interpretation Comments Bili Total (test code = Bili Total) 0.3 0.2-1.3 [facility] BranchAfsomleCFHYWJKKRYGO5886-51-63 18:46:00 Test Item Value Reference Range Interpretation Comments ALT (test code = ALT) 100 See_Comment [Auto mated message] The system which ge nerated this result transmit elizabeth reference range : <=65. The reference range was not used to interpr et this result as margaret l/abnormal. [facility] BranchCvnaeepOTXVQMQUTJSR3512-21-63 18:46:00 Test Item Value Reference Range Interpretation Comments AST (test code = AST) 53 See_Comment [Auto mated message] The system which ge nerated this result transmit elizabeth reference range : <=37. The reference range was not used to interpr et this result as margaret l/abnormal. [facility] BranchHvamtozFAEDMFZMYNYD8351-69-29 18:46:00 Test Item Value Reference Range Interpretation Comments Total Protein (test code = Total 6.9 6.4-8.4 Protein) [facility]viewLpopapjCTCCXWANIF5258-85-15 18:46:00 Test Item Value Reference Range Interpretation Comments Eosinophils (test code = 4.2 See_Comment [A utomated message] The Eosinophils) system which ge nerated this result tra nsmitted reference range : <=4.0. The reference r mitra was not used to int erpret this result as normal/abnormal . [facility] LongviewJimfootPNCQIZTAFN5250-27-91 18:46:00 Test Item Value Reference Range Interpretation Comments Segs (test code = Segs) 56.4 45.0-75.0 [facility]viewXfpcwgvAMZAQTBMCT2561-40-49 18:46:00 Test Item Value Reference Range Interpretation Comments Monocytes (test code = Monocytes) 10.3 2.0-12.0 [facility] LongviewAisfqdyDLOCITCQYD0450-53-19 18:46:00 Test Item Value Reference Range Interpretation Comments Lymphocytes (test code = Lymphocytes) 28.0 20.0-40.0 [facility]viewQxkeeouTJXKUBSCAL3069-53-46 18:46:00 Test Item Value Reference Range Interpretation Comments Monocytes # (test code 0.5 See_Comment [Aut omated message] The = Monocytes #) system which generated this result tra nsmitted reference range : <=0.8. The reference r mitra was not used to int erpret this result as normal/abnormal . [facility]viewHuyxbarHZCXJBNYEP4252-49-32 18:46:00 Test Item Value Reference Range Interpretation Comments Basophils (test code = 1.1 See_Comment [Aut omated message] The Basophils) system which ge nerated this result tra nsmitted reference range : <=1.0. The reference r mitra was not used to int erpret this result as normal/abnormal . [facility] LongviewOaruprbLTJSYIFJLB9083-59-40 18:46:00 Test Item Value Reference Range Interpretation Comments Lymphocytes # (test code = Lymphocytes 1.5 1.0-5.5 #) [facility]viewHvuckyfBUSTUAIZGJ5045-80-00 18:46:00 Test Item Value Reference Range Interpretation Comments Segs-Bands # (test code = Segs-Bands #) 2.9 1.5-8.1 [facility]viewEmkbwvcKDNBOCQUKW4478-57-85 18:46:00 Test Item Value Reference Range Interpretation Comments Eosinophils # (test code 0.2 See_Comment [A utomated message] The = Eosinophils #) system whic h generated this result tra nsmitted reference range : <=0.5. The reference r mitra was not used to int erpret this result as normal/abnormal . [facility] LongviewNlqxjmgOOYZKQJOKJ8824-50-91 18:46:00 Test Item Value Reference Range Interpretation Comments Basophils # (test code 0.1 See_Comment [Aut omated message] The = Basophils #) system which generated this result tra nsmitted reference range : <=0.2. The reference r mitra was not used to int erpret this result as normal/abnormal . [facility] LongviewEhktdinLDSOUVGAIL4056-01-02 18:46:00 Test Item Value Reference Range Interpretation Comments PT (test code = PT) 11.2 s 12.0-14.7 [facility]viewTvzrjzdRGMFYODNFA2121-12-01 18:46:00 Test Item Value Reference Range Interpretation Comments INR (test code = INR) 0.82 0.85-1.17 [facility]viewVkjxvjoRPVZBUMXLL7495-24-80 18:46:00 Test Item Value Reference Range Interpretation Comments PTT (test code = PTT) 28.6 s 22.9-35.8 [facility]viewWcpwcmxPJFTQWJXJM6458-72-93 18:46:00 Test Item Value Reference Range Interpretation Comments MPV (test code = MPV) 8.1 7.4-10.4 [facility] LongviewMnllebiAXOSKOEWFB8473-35-66 18:46:00 Test Item Value Reference Range Interpretation Comments Platelet (test code = Platelet) 301 133-450 [facility] LongviewPinxwxyNWZAGNALKU3076-77-80 18:46:00 Test Item Value Reference Range Interpretation Comments RDW (test code = RDW) 14.5 11.5-14.5 [facility] HospitalXyoffgiRGLUMNSJEB1860-01-80 18:46:00 Test Item Value Reference Range Interpretation Comments RBC (test code = RBC) 4.84 4.70-6.10 [facility] LongviewLtjtcsoEYJHUZELKG1795-38-41 18:46:00 Test Item Value Reference Range Interpretation Comments Hgb (test code = Hgb) 14.4 14.0-18.0 [facility] LongviewStekmegZXFBHBZFXH1907-50-63 18:46:00 Test Item Value Reference Range Interpretation Comments WBC (test code = WBC) 5.2 3.7-10.4 [facility] LongviewOjqwwpcGGDBAOOCUX6319-57-14 18:46:00 Test Item Value Reference Range Interpretation Comments MCH (test code = MCH) 29.8 pg 27.0-31.0 [facility] LongviewSaiexqhXKTHIWFKPL7969-00-24 18:46:00 Test Item Value Reference Range Interpretation Comments MCV (test code = MCV) 92.0 80.0-94.0 [facility] LongviewCesjmnlVYTIMOYTEA8712-49-86 18:46:00 Test Item Value Reference Range Interpretation Comments Hct (test code = Hct) 44.5 42.0-54.0 [facility] HospitalQqabmujABEMNLMGAM6628-72-05 18:46:00 Test Item Value Reference Range Interpretation Comments MCHC (test code = MCHC) 32.4 32.0-36.[address] [facility] CenterWhrhjvdKFVJXLJNIW9961-63-13 18:46:00 Test Item Value Reference Range Interpretation Comments [place]-Hep C Ab (test Negative *NA*(07/22/14 code = [place]-Hep C 1:46 PM) Ab) [facility] AND [id number] 18:46:00 Test Item Value Reference Range Interpretation Comments UA Urobilinogen (test code = UA <=1.0 mg/dL 0.1-1.0 Urobilinogen) [facility] AND [id number] 18:46:00 Test Item Value Reference Range Interpretation Comments UA Sq Epi (test code = UA Sq Epi) None Seen [facility] AND [id number] 18:46:00 Test Item Value Reference Range Interpretation Comments UA Leuk Est (test Negative (07/22/14 1:46 code = UA Leuk Est) PM) [facility] AND [id number] 18:46:00 Test Item Value Reference Range Interpretation Comments UA Nitrite (test code Negative (07/22/14 1:46 = UA Nitrite) PM) [facility] AND [id number] 18:46:00 Test Item Value Reference Range Interpretation Comments UA Blood (test code = Negative (07/22/14 1:46 UA Blood) PM) [facility] AND [id number] 18:46:00 Test Item Value Reference Range Interpretation Comments UA Ketones (test code = UA Negative mg/dL Ketones) [facility] AND [id number] 18:46:00 Test Item Value Reference Range Interpretation Comments UA Bili (test code = Negative *NA*(07/22/14 UA Bili) 1:46 PM) [facility] AND [id number] 18:46:00 Test Item Value Reference Range Interpretation Comments UA Bacteria (test code = UA Occasional /HPF Bacteria) [facility] AND [id number] 18:46:00 Test Item Value Reference Range Interpretation Comments UA RBC (test code = no gt See_Comment [Automa elizabeth message] The UA RBC) system which ge nerated this result transmit elizabeth reference range : <=2. The reference range was not used to interpr et this result as margaret l/abnormal. [facility] AND [id number] 18:46:00 Test Item Value Reference Range Interpretation Comments UA WBC (test code = 1 See_Comment [Automa elizabeth message] The UA WBC) system which ge nerated this result transmit elizabeth reference range : <=5. The reference range was not used to interpr et this result as margaret l/abnormal. [facility] AND [id number] 18:46:00 Test Item Value Reference Range Interpretation Comments UA Glucose (test code = UA Glucose) 30 mg/dL [facility] AND [id number] 18:46:00 Test Item Value Reference Range Interpretation Comments UA Protein (test code = UA Negative mg/dL Protein) [facility] AND [id number] 18:46:00 Test Item Value Reference Range Interpretation Comments UA pH (test code = UA pH) 6.5 5.0-8.0 [facility] AND [id number] 18:46:00 Test Item Value Reference Range Interpretation Comments UA Turbidity (test code = Clear (6/9/15 1:46 UA Turbidity) PM) [facility] [id number] 18:46:00 Test Item Value Reference Range Interpretation Comments UA Spec Grav (test code = UA Spec Grav) 1.010 [facility] AND [id number] 18:46:00 Test Item Value Reference Range Interpretation Comments UA Color (test code = Light Yellow UA Color) *NA*(07/22/14 1:46 PM) [facility] [id number] 18:46:00 Test Item Value Reference Range Interpretation Comments Magnesium Lvl (test code = Magnesium 1.8 1.8-2.4 Lvl) [facility]EbgdjafYFYFAMNTMWVS8704-35-38 18:46:00 Test Item Value Reference Range Interpretation Comments AGAP (test code = AGAP) 13.2 10.0-20.0 [facility] BranchVfvgxmaAFZBUNWKDKYN6000-59-24 18:46:00 Test Item Value Reference Range Interpretation Comments B/C Ratio (test code = B/C Ratio) 18 6-25 [facility] BranchVzjmlosAMDZHZQMCKTR0396-20-11 18:46:00 Test Item Value Reference Range Interpretation Comments A/G Ratio (test code = A/G Ratio) 1.1 0.7-1.6 [facility] BranchTlwolpdMPDZBBAPFMQF6252-98-84 18:46:00 Test Item Value Reference Range Interpretation Comments Globulin (test code = Globulin) 3.3 2.0-4.0 [facility] BranchDitlazbCCOKULARDBUB0951-06-77 18:46:00 Test Item Value Reference Range Interpretation Comments eGFR (test code = eGFR) 99 [facility] BranchGvuoaodHCKPOAUFVJIP9280-97-80 18:46:00 Test Item Value Reference Range Interpretation Comments Calcium Lvl (test code = Calcium Lvl) 9.0 8.5-10.5 [facility] BranchQxcubsuUNXITVWGXRYN5750-84-15 18:46:00 Test Item Value Reference Range Interpretation Comments Chloride Lvl (test code = Chloride Lvl) 106 95-109 [facility] BranchUwrdvikBWTTNPVXONJY9927-13-05 18:46:00 Test Item Value Reference Range Interpretation Comments Creatinine Lvl (test code = Creatinine 0.9 0.5-1.4 Lvl) [facility] BranchJwjdhbpKEYXPGQCVVIZ4274-16-33 18:46:00 Test Item Value Reference Range Interpretation Comments Potassium Lvl (test code = Potassium 4.2 3.5-5.1 Lvl) [facility] BranchSifwqyeIHAOQVYMGSNY6079-44-02 18:46:00 Test Item Value Reference Range Interpretation Comments Sodium Lvl (test code = Sodium Lvl) 139 135-145 [facility] BranchKufxnjsHXPDXXKHNXDA4994-29-64 18:46:00 Test Item Value Reference Range Interpretation Comments CO2 (test code = CO2) 24 24-32 [facility] BranchLymhclfAPWTXXCBJFBT8244-61-76 18:46:00 Test Item Value Reference Range Interpretation Comments BUN (test code = BUN) 16 7-22 [facility] BranchSebnillOSDAJZZCZUTR4875-26-21 18:46:00 Test Item Value Reference Range Interpretation Comments Glucose Lvl (test code = Glucose Lvl) 141 70-99 [facility] BranchBopabnkWVVOWMZJSQXM0200-94-04 18:46:00 Test Item Value Reference Range Interpretation Comments Albumin Lvl (test code = Albumin Lvl) 3.6 3.5-5.0 [facility] BranchXrjbddgNAVFLEPGQAYH7875-52-95 18:46:00 Test Item Value Reference Range Interpretation Comments Alk Phos (test code = Alk Phos) 65 39-136 [facility] BranchIjgdtcfNYJXRLRNPOMS6886-82-22 18:46:00 Test Item Value Reference Range Interpretation Comments Bili Total (test code = Bili Total) 0.3 0.2-1.3 [facility] BranchWspwhnwUKGVEMDUODLE9558-82-21 18:46:00 Test Item Value Reference Range Interpretation Comments ALT (test code = ALT) 100 See_Comment [Auto mated message] The system which ge nerated this result transmit elizabeth reference range : <=65. The reference range was not used to interpr et this result as margaret l/abnormal. [facility] BranchApmacsyEJPTVTNJUZHH0525-64-06 18:46:00 Test Item Value Reference Range Interpretation Comments AST (test code = AST) 53 See_Comment [Auto mated message] The system which ge nerated this result transmit elizabeth reference range : <=37. The reference range was not used to interpr et this result as margaret l/abnormal. [facility] BranchOygmmbvRMVBKCFYFEWK7766-38-57 18:46:00 Test Item Value Reference Range Interpretation Comments Total Protein (test code = Total 6.9 6.4-8.4 Protein) [facility]viewLlaizwhFGTZSDNEIB4015-87-90 18:46:00 Test Item Value Reference Range Interpretation Comments Eosinophils (test code = 4.2 See_Comment [A utomated message] The Eosinophils) system which ge nerated this result tra nsmitted reference range : <=4.0. The reference r mitra was not used to int erpret this result as normal/abnormal . [facility]viewTcijhokQPOTRVQOHB4436-89-89 18:46:00 Test Item Value Reference Range Interpretation Comments Segs (test code = Segs) 56.4 45.0-75.0 [facility]viewVgcpkhbFONIRUHFIX2307-89-06 18:46:00 Test Item Value Reference Range Interpretation Comments Monocytes (test code = Monocytes) 10.3 2.0-12.0 [facility]viewRdfpuyfUTVITCUQEN4267-96-41 18:46:00 Test Item Value Reference Range Interpretation Comments Lymphocytes (test code = Lymphocytes) 28.0 20.0-40.0 [facility]viewPfgcmcwSQGLGBYVUL2122-50-54 18:46:00 Test Item Value Reference Range Interpretation Comments Monocytes # (test code 0.5 See_Comment [Aut omated message] The = Monocytes #) system which generated this result tra nsmitted reference range : <=0.8. The reference r mitra was not used to int erpret this result as normal/abnormal . [facility]viewQsaorwwAUJOJTBQJU6608-78-86 18:46:00 Test Item Value Reference Range Interpretation Comments Basophils (test code = 1.1 See_Comment [Aut omated message] The Basophils) system which ge nerated this result tra nsmitted reference range : <=1.0. The reference r mitra was not used to int erpret this result as normal/abnormal . [facility]viewGoxodzuJQRLUYQAWO3002-64-14 18:46:00 Test Item Value Reference Range Interpretation Comments Lymphocytes # (test code = Lymphocytes 1.5 1.0-5.5 #) [facility]viewGjcuwvsTTEQGKSSCM9817-15-60 18:46:00 Test Item Value Reference Range Interpretation Comments Segs-Bands # (test code = Segs-Bands #) 2.9 1.5-8.1 [facility] LongviewDsaiizpGEIWSVWTSA3794-09-79 18:46:00 Test Item Value Reference Range Interpretation Comments Eosinophils # (test code 0.2 See_Comment [A utomated message] The = Eosinophils #) system whic h generated this result tra nsmitted reference range : <=0.5. The reference r mitra was not used to int erpret this result as normal/abnormal . [facility]viewNplpizdHQVPWWIXDT1139-64-29 18:46:00 Test Item Value Reference Range Interpretation Comments Basophils # (test code 0.1 See_Comment [Aut omated message] The = Basophils #) system which generated this result tra nsmitted reference range : <=0.2. The reference r mitra was not used to int erpret this result as normal/abnormal . [facility]viewXlliqlbPJLLCMRZBC8047-63-98 18:46:00 Test Item Value Reference Range Interpretation Comments PT (test code = PT) 11.2 s 12.0-14.7 [facility]viewVjtxnjyXUCDBGWIYF1320-38-82 18:46:00 Test Item Value Reference Range Interpretation Comments INR (test code = INR) 0.82 0.85-1.17 [facility] LongviewAaielbqIVGVQRGECT4165-75-36 18:46:00 Test Item Value Reference Range Interpretation Comments PTT (test code = PTT) 28.6 s 22.9-35.8 [facility] LongviewRxplnlpLIOIEYEWSB7417-26-80 18:46:00 Test Item Value Reference Range Interpretation Comments MPV (test code = MPV) 8.1 7.4-10.4 [facility]viewYrznlxkUBNMDNMPOI2581-14-09 18:46:00 Test Item Value Reference Range Interpretation Comments Platelet (test code = Platelet) 301 133-450 [facility]viewTtzgnwvUNMWPERHIJ7922-76-55 18:46:00 Test Item Value Reference Range Interpretation Comments RDW (test code = RDW) 14.5 11.5-14.5 [facility]viewClkuskzCJGMDFOZSC3975-80-56 18:46:00 Test Item Value Reference Range Interpretation Comments RBC (test code = RBC) 4.84 4.70-6.10 [facility] LongviewRsfalllBPSDUPAGWI1757-77-81 18:46:00 Test Item Value Reference Range Interpretation Comments Hgb (test code = Hgb) 14.4 14.0-18.0 [facility]viewQiygkcyOUEADIPYHQ7285-07-05 18:46:00 Test Item Value Reference Range Interpretation Comments WBC (test code = WBC) 5.2 3.7-10.4 [facility] LongviewIezbavrTOYSKBXWQU8341-80-41 18:46:00 Test Item Value Reference Range Interpretation Comments MCH (test code = MCH) 29.8 pg 27.0-31.[address] [facility] CenterZzklwdrJOYDQWCAFQ1264-06-79 18:46:00 Test Item Value Reference Range Interpretation Comments MCV (test code = MCV) 92.0 80.0-94.0 [facility] CpqobonMETFBHPHKI7248-29-86 18:46:00 Test Item Value Reference Range Interpretation Comments Hct (test code = Hct) 44.5 42.0-54.0 [facility] GyvckwbKTSMTEVPXZ3828-77-86 18:46:00 Test Item Value Reference Range Interpretation Comments MCHC (test code = MCHC) 32.4 32.0-36.[address] [facility] CenterTuzezgnVJTZXAEZIK4653-24-93 18:46:00 Test Item Value Reference Range Interpretation Comments [place]-Hep C Ab (test Negative *NA*(07/22/14 code = [place]-Hep C 1:46 PM) Ab) [facility] AND [id number] 18:46:00 Test Item Value Reference Range Interpretation Comments UA Urobilinogen (test code = UA <=1.0 mg/dL 0.1-1.0 Urobilinogen) [facility] AND [id number] 18:46:00 Test Item Value Reference Range Interpretation Comments UA Sq Epi (test code = UA Sq Epi) None Seen [facility] AND [id number] 18:46:00 Test Item Value Reference Range Interpretation Comments UA Leuk Est (test Negative (07/22/14 1:46 code = UA Leuk Est) PM) [facility] AND [id number] 18:46:00 Test Item Value Reference Range Interpretation Comments UA Nitrite (test code Negative (07/22/14 1:46 = UA Nitrite) PM) [facility] AND [id number] 18:46:00 Test Item Value Reference Range Interpretation Comments UA Blood (test code = Negative (07/22/14 1:46 UA Blood) PM) [facility] AND [id number] 18:46:00 Test Item Value Reference Range Interpretation Comments UA Ketones (test code = UA Negative mg/dL Ketones) [facility] AND [id number] 18:46:00 Test Item Value Reference Range Interpretation Comments UA Bili (test code = Negative *NA*(07/22/14 UA Bili) 1:46 PM) [facility] [id number] 18:46:00 Test Item Value Reference Range Interpretation Comments UA Bacteria (test code = UA Occasional /HPF Bacteria) [facility] [id number] 18:46:00 Test Item Value Reference Range Interpretation Comments UA RBC (test code = no gt See_Comment [Automa elizabeth message] The UA RBC) system which ge nerated this result transmit elizabeth reference range : <=2. The reference range was not used to interpr et this result as margaret l/abnormal. [facility] [id number] 18:46:00 Test Item Value Reference Range Interpretation Comments UA WBC (test code = 1 See_Comment [Automa elizabeth message] The UA WBC) system which ge nerated this result transmit elizabeth reference range : <=5. The reference range was not used to interpr et this result as margaret l/abnormal. [facility] [id number] 18:46:00 Test Item Value Reference Range Interpretation Comments UA Glucose (test code = UA Glucose) 30 mg/dL [facility] [id number] 18:46:00 Test Item Value Reference Range Interpretation Comments UA Protein (test code = UA Negative mg/dL Protein) [facility] [id number] 18:46:00 Test Item Value Reference Range Interpretation Comments UA pH (test code = UA pH) 6.5 5.0-8.0 [facility] AND [id number] 18:46:00 Test Item Value Reference Range Interpretation Comments UA Turbidity (test code = Clear (07/22/14 1:46 UA Turbidity) PM) [facility] [id number] 18:46:00 Test Item Value Reference Range Interpretation Comments UA Spec Grav (test code = UA Spec Grav) 1.010 [facility] [id number] 18:46:00 Test Item Value Reference Range Interpretation Comments UA Color (test code = Light Yellow UA Color) *NA*(07/22/14 1:46 PM) [facility]annCHE[facility] [id number] 18:46:00 Test Item Value Reference Range Interpretation Comments Magnesium Lvl (test code = Magnesium 1.8 1.8-2.4 Lvl) [facility] BranchKcudqjnWWZOFAEBXYDY8251-19-67 18:46:00 Test Item Value Reference Range Interpretation Comments AGAP (test code = AGAP) 13.2 10.0-20.0 [facility] BranchTfucnvpMMXJTXXXEGCG0542-83-30 18:46:00 Test Item Value Reference Range Interpretation Comments B/C Ratio (test code = B/C Ratio) 18 6-25 [facility] BranchFmjhckaRGSSOSXWOLQZ0868-86-54 18:46:00 Test Item Value Reference Range Interpretation Comments A/G Ratio (test code = A/G Ratio) 1.1 0.7-1.6 [facility] BranchJooclffXSFVGGFWOJDC2682-99-39 18:46:00 Test Item Value Reference Range Interpretation Comments Globulin (test code = Globulin) 3.3 2.0-4.0 [facility] BranchNvbqoqvAJSBEBZMQZOA1053-34-68 18:46:00 Test Item Value Reference Range Interpretation Comments eGFR (test code = eGFR) 99 [facility] BranchOqyauwnUQRKXDEKVSXJ2511-30-11 18:46:00 Test Item Value Reference Range Interpretation Comments Calcium Lvl (test code = Calcium Lvl) 9.0 8.5-10.5 [facility] BranchMzezrucKHRTRDOEPTRD1056-40-68 18:46:00 Test Item Value Reference Range Interpretation Comments Chloride Lvl (test code = Chloride Lvl) 106 95-109 [facility] BranchBvcnctdRAVFVWEINUVS4706-30-18 18:46:00 Test Item Value Reference Range Interpretation Comments Creatinine Lvl (test code = Creatinine 0.9 0.5-1.4 Lvl) [facility] BranchUafmddcAQSRUTOGYPRB7629-20-24 18:46:00 Test Item Value Reference Range Interpretation Comments Potassium Lvl (test code = Potassium 4.2 3.5-5.1 Lvl) [facility] BranchSeszzvpXZXNXNAXACCK1593-50-31 18:46:00 Test Item Value Reference Range Interpretation Comments Sodium Lvl (test code = Sodium Lvl) 139 135-145 [facility] BranchEsykzwuFEJRNRTBMGBR8623-37-12 18:46:00 Test Item Value Reference Range Interpretation Comments CO2 (test code = CO2) 24 24-32 [facility] BranchKvjikdfNSVGPKEQMVAM3580-41-89 18:46:00 Test Item Value Reference Range Interpretation Comments BUN (test code = BUN) 16 7-22 [facility] BranchLmtgetoKZUMCIIRRBDC7290-70-63 18:46:00 Test Item Value Reference Range Interpretation Comments Glucose Lvl (test code = Glucose Lvl) 141 70-99 [facility] BranchNzoyzheREHYYBMJABFK6597-37-68 18:46:00 Test Item Value Reference Range Interpretation Comments Albumin Lvl (test code = Albumin Lvl) 3.6 3.5-5.0 [facility] BranchGumhlfdOQCWVZONXECP0589-62-94 18:46:00 Test Item Value Reference Range Interpretation Comments Alk Phos (test code = Alk Phos) 65 39-136 [facility] BranchZpfttkhUZPLOBOIOVKC0125-00-31 18:46:00 Test Item Value Reference Range Interpretation Comments Bili Total (test code = Bili Total) 0.3 0.2-1.3 [facility] BranchPfgdaqrDUXAHADTRINQ8858-51-04 18:46:00 Test Item Value Reference Range Interpretation Comments ALT (test code = ALT) 100 See_Comment [Auto mated message] The system which ge nerated this result transmit elizabeth reference range : <=65. The reference range was not used to interpr et this result as margaret l/abnormal. [facility] BranchOxphfvsROOAOTKXYWZL9467-95-52 18:46:00 Test Item Value Reference Range Interpretation Comments AST (test code = AST) 53 See_Comment [Auto mated message] The system which ge nerated this result transmit elizabeth reference range : <=37. The reference range was not used to interpr et this result as margaret l/abnormal. [facility] BranchJjspaxnGQLVEOFDWFOB4461-99-83 18:46:00 Test Item Value Reference Range Interpretation Comments Total Protein (test code = Total 6.9 6.4-8.4 Protein) [facility]viewPkgkyhbUIYYWNVMDP8498-57-57 18:46:00 Test Item Value Reference Range Interpretation Comments Eosinophils (test code = 4.2 See_Comment [A utomated message] The Eosinophils) system which ge nerated this result tra nsmitted reference range : <=4.0. The reference r mitra was not used to int erpret this result as normal/abnormal . [facility]viewHyxdlwnUWLGMOPYIJ9346-53-13 18:46:00 Test Item Value Reference Range Interpretation Comments Segs (test code = Segs) 56.4 45.0-75.0 [facility] LongviewQhwpnfrJPGRSCRVCI3705-76-21 18:46:00 Test Item Value Reference Range Interpretation Comments Monocytes (test code = Monocytes) 10.3 2.0-12.0 [facility]viewWnajmxlDXXTYTBSMR0038-75-73 18:46:00 Test Item Value Reference Range Interpretation Comments Lymphocytes (test code = Lymphocytes) 28.0 20.0-40.0 [facility]viewVshffzuWCRNYWJWDJ1960-07-54 18:46:00 Test Item Value Reference Range Interpretation Comments Monocytes # (test code 0.5 See_Comment [Aut omated message] The = Monocytes #) system which generated this result tra nsmitted reference range : <=0.8. The reference r mitra was not used to int erpret this result as normal/abnormal . [facility] LongviewWneyaviGNTBHOTQNX7242-26-32 18:46:00 Test Item Value Reference Range Interpretation Comments Basophils (test code = 1.1 See_Comment [Aut omated message] The Basophils) system which ge nerated this result tra nsmitted reference range : <=1.0. The reference r mitra was not used to int erpret this result as normal/abnormal . [facility]viewHrzqbgnUPRIKKGNIT8429-81-56 18:46:00 Test Item Value Reference Range Interpretation Comments Lymphocytes # (test code = Lymphocytes 1.5 1.0-5.5 #) [facility] LongviewOzoywwgYISPVGJMRB9648-05-04 18:46:00 Test Item Value Reference Range Interpretation Comments Segs-Bands # (test code = Segs-Bands #) 2.9 1.5-8.1 [facility] LongviewQjwcacvADSDUUMKIS1645-17-04 18:46:00 Test Item Value Reference Range Interpretation Comments Eosinophils # (test code 0.2 See_Comment [A utomated message] The = Eosinophils #) system whic h generated this result tra nsmitted reference range : <=0.5. The reference r mitra was not used to int erpret this result as normal/abnormal . [facility] LongviewPzunauwFYRENBUXOV0333-37-01 18:46:00 Test Item Value Reference Range Interpretation Comments Basophils # (test code 0.1 See_Comment [Aut omated message] The = Basophils #) system which generated this result tra nsmitted reference range : <=0.2. The reference r mitra was not used to int erpret this result as normal/abnormal . [facility] LongviewNcyzlmmPCHGFYSIQY7656-70-17 18:46:00 Test Item Value Reference Range Interpretation Comments PT (test code = PT) 11.2 s 12.0-14.7 [facility] LongviewSnmptdpUHVQHDANRF2297-83-69 18:46:00 Test Item Value Reference Range Interpretation Comments INR (test code = INR) 0.82 0.85-1.17 [facility] LongviewKudecosEMPQHYSYZZ5367-87-89 18:46:00 Test Item Value Reference Range Interpretation Comments PTT (test code = PTT) 28.6 s 22.9-35.8 [facility] LongviewMceknqgKZUGYPPDXU3125-71-70 18:46:00 Test Item Value Reference Range Interpretation Comments MPV (test code = MPV) 8.1 7.4-10.4 [facility] LongviewPjylgdaJEAFFBQKJQ9744-70-72 18:46:00 Test Item Value Reference Range Interpretation Comments Platelet (test code = Platelet) 301 133-450 [facility] LongviewEtfqnteTRBCZYNYNT9552-18-82 18:46:00 Test Item Value Reference Range Interpretation Comments RDW (test code = RDW) 14.5 11.5-14.5 [facility] LongviewKkkzquiZCUMAGWAKF0189-21-77 18:46:00 Test Item Value Reference Range Interpretation Comments RBC (test code = RBC) 4.84 4.70-6.10 [facility] LongviewRqhoipjVMUPOZDUUW1091-85-55 18:46:00 Test Item Value Reference Range Interpretation Comments Hgb (test code = Hgb) 14.4 14.0-18.0 [facility] LongviewVicxhlpUWCMWVQVYP7900-94-24 18:46:00 Test Item Value Reference Range Interpretation Comments WBC (test code = WBC) 5.2 3.7-10.4 [facility] LongviewYmmhsbvXNGRDOMTKB4450-47-91 18:46:00 Test Item Value Reference Range Interpretation Comments MCH (test code = MCH) 29.8 pg 27.0-31.0 [facility] LongviewLzsojxqUQZLOVWSHA5625-60-55 18:46:00 Test Item Value Reference Range Interpretation Comments MCV (test code = MCV) 92.0 80.0-94.0 [facility] LongviewYgdvcfnSGGVJULVFH3342-91-13 18:46:00 Test Item Value Reference Range Interpretation Comments Hct (test code = Hct) 44.5 42.0-54.0 [facility] LongviewOxjhychMMRBOTVKIX6784-26-16 18:46:00 Test Item Value Reference Range Interpretation Comments MCHC (test code = MCHC) 32.4 32.0-36.0 [facility] YkeokyfZFWPMSYJTM5239-16-06 18:46:00 Test Item Value Reference Range Interpretation Comments [place]-Hep C Ab (test Negative *NA*(07/22/14 code = [place]-Hep C 1:46 PM) Ab) [facility] AND [id number] 18:46:00 Test Item Value Reference Range Interpretation Comments UA Urobilinogen (test code = UA <=1.0 mg/dL 0.1-1.0 Urobilinogen) [facility] AND [id number] 18:46:00 Test Item Value Reference Range Interpretation Comments UA Sq Epi (test code = UA Sq Epi) None Seen [facility] AND [id number] 18:46:00 Test Item Value Reference Range Interpretation Comments UA Leuk Est (test Negative (07/22/14 1:46 code = UA Leuk Est) PM) [facility] AND [id number] 18:46:00 Test Item Value Reference Range Interpretation Comments UA Nitrite (test code Negative (07/22/14 1:46 = UA Nitrite) PM) [facility] AND [id number] 18:46:00 Test Item Value Reference Range Interpretation Comments UA Blood (test code = Negative (07/22/14 1:46 UA Blood) PM) [facility] AND [id number] 18:46:00 Test Item Value Reference Range Interpretation Comments UA Ketones (test code = UA Negative mg/dL Ketones) [facility] AND [id number] 18:46:00 Test Item Value Reference Range Interpretation Comments UA Bili (test code = Negative *NA*(07/22/14 UA Bili) 1:46 PM) [facility] AND [id number] 18:46:00 Test Item Value Reference Range Interpretation Comments UA Bacteria (test code = UA Occasional /HPF Bacteria) [facility] AND [id number] 18:46:00 Test Item Value Reference Range Interpretation Comments UA RBC (test code = no gt See_Comment [Automa elizabeth message] The UA RBC) system which ge nerated this result transmit elizabeth reference range : <=2. The reference range was not used to interpr et this result as margaret l/abnormal. [facility] AND [id number] 18:46:00 Test Item Value Reference Range Interpretation Comments UA WBC (test code = 1 See_Comment [Automa elizabeth message] The UA WBC) system which ge nerated this result transmit elizabeth reference range : <=5. The reference range was not used to interpr et this result as margaret l/abnormal. [facility] AND [id number] 18:46:00 Test Item Value Reference Range Interpretation Comments UA Glucose (test code = UA Glucose) 30 mg/dL [facility] AND [id number] 18:46:00 Test Item Value Reference Range Interpretation Comments UA Protein (test code = UA Negative mg/dL Protein) [facility] AND [id number] 18:46:00 Test Item Value Reference Range Interpretation Comments UA pH (test code = UA pH) 6.5 5.0-8.0 [facility] AND [id number] 18:46:00 Test Item Value Reference Range Interpretation Comments UA Turbidity (test code = Clear (07/22/14 1:46 UA Turbidity) PM) [facility] AND [id number] 18:46:00 Test Item Value Reference Range Interpretation Comments UA Spec Grav (test code = UA Spec Grav) 1.010 [facility] AND [id number] 18:46:00 Test Item Value Reference Range Interpretation Comments UA Color (test code = Light Yellow UA Color) *NA*(07/22/14 1:46 PM) [facility] [id number] 18:46:00 Test Item Value Reference Range Interpretation Comments Magnesium Lvl (test code = Magnesium 1.8 1.8-2.4 Lvl) [facility]GqtgrerUJIIDMIVOMFA5146-64-72 18:46:00 Test Item Value Reference Range Interpretation Comments AGAP (test code = AGAP) 13.2 10.0-20.0 [facility]NhoqzxbCBUFBDZECLBB4845-83-81 18:46:00 Test Item Value Reference Range Interpretation Comments B/C Ratio (test code = B/C Ratio) 18 6-25 [facility] BranchWbqlwwsDZUTWUAMIUFO4357-15-12 18:46:00 Test Item Value Reference Range Interpretation Comments A/G Ratio (test code = A/G Ratio) 1.1 0.7-1.6 [facility] BranchZmmvdugEZQGWDJPQXSJ4459-15-81 18:46:00 Test Item Value Reference Range Interpretation Comments Globulin (test code = Globulin) 3.3 2.0-4.0 [facility] BranchMvlnwybOYZSAWWKICOT2341-32-79 18:46:00 Test Item Value Reference Range Interpretation Comments eGFR (test code = eGFR) 99 [facility] BranchXzcmgvbHNXRCRZJWHNJ2218-57-27 18:46:00 Test Item Value Reference Range Interpretation Comments Calcium Lvl (test code = Calcium Lvl) 9.0 8.5-10.5 [facility] BranchYsgrqlqUITLLRMGKDOO0289-13-79 18:46:00 Test Item Value Reference Range Interpretation Comments Chloride Lvl (test code = Chloride Lvl) 106 95-109 [facility] BranchFolxcbdKDEEJYRNVDKG3158-03-41 18:46:00 Test Item Value Reference Range Interpretation Comments Creatinine Lvl (test code = Creatinine 0.9 0.5-1.4 Lvl) [facility] BranchSsabedeHMGOFAPMDFBO6256-84-27 18:46:00 Test Item Value Reference Range Interpretation Comments Potassium Lvl (test code = Potassium 4.2 3.5-5.1 Lvl) [facility] BranchKfeuuhkUOILZLBSENFQ6820-58-56 18:46:00 Test Item Value Reference Range Interpretation Comments Sodium Lvl (test code = Sodium Lvl) 139 135-145 [facility] BranchUykygenFZQTXCRARKDL0510-94-58 18:46:00 Test Item Value Reference Range Interpretation Comments CO2 (test code = CO2) 24 24-32 [facility] BranchBghdqftBUZDLMBTYKYF9764-88-22 18:46:00 Test Item Value Reference Range Interpretation Comments BUN (test code = BUN) 16 7-22 [facility] BranchKmaezvgJLUHBESPTEER0913-97-39 18:46:00 Test Item Value Reference Range Interpretation Comments Glucose Lvl (test code = Glucose Lvl) 141 70-99 [facility] BranchZampfunBCUXLUZQPESP5960-33-71 18:46:00 Test Item Value Reference Range Interpretation Comments Albumin Lvl (test code = Albumin Lvl) 3.6 3.5-5.0 [facility] BranchOgpaihiELYWFMHMYYZL3925-13-51 18:46:00 Test Item Value Reference Range Interpretation Comments Alk Phos (test code = Alk Phos) 65 39-136 [facility] BranchPremasiCDZBVFOJQRMV1936-41-50 18:46:00 Test Item Value Reference Range Interpretation Comments Bili Total (test code = Bili Total) 0.3 0.2-1.3 [facility] BranchMdvnteeXAQVZIZDFXLS4903-53-04 18:46:00 Test Item Value Reference Range Interpretation Comments ALT (test code = ALT) 100 See_Comment [Auto mated message] The system which ge nerated this result transmit elizabeth reference range : <=65. The reference range was not used to interpr et this result as margaret l/abnormal. [facility] BranchIjnvsiiEUFJEGJUGQBC0121-23-19 18:46:00 Test Item Value Reference Range Interpretation Comments AST (test code = AST) 53 See_Comment [Auto mated message] The system which ge nerated this result transmit elizabeth reference range : <=37. The reference range was not used to interpr et this result as margaret l/abnormal. [facility] BranchDxblzyjGSNGPHYQGOJA9223-41-83 18:46:00 Test Item Value Reference Range Interpretation Comments Total Protein (test code = Total 6.9 6.4-8.4 Protein) [facility]CsteepmIBTZHFNVAC4484-54-04 18:46:00 Test Item Value Reference Range Interpretation Comments Eosinophils (test code = 4.2 See_Comment [A utomated message] The Eosinophils) system which ge nerated this result tra nsmitted reference range : <=4.0. The reference r mitra was not used to int erpret this result as normal/abnormal . [facility]viewVljazvpGHOOBRXZER1125-41-53 18:46:00 Test Item Value Reference Range Interpretation Comments Segs (test code = Segs) 56.4 45.0-75.0 [facility]viewZpcmvpcDYHIAJCJFR4029-96-86 18:46:00 Test Item Value Reference Range Interpretation Comments Monocytes (test code = Monocytes) 10.3 2.0-12.0 [facility]viewOopskxzSIZGCWQYEY0593-68-53 18:46:00 Test Item Value Reference Range Interpretation Comments Lymphocytes (test code = Lymphocytes) 28.0 20.0-40.0 [facility]viewEppayyvMHBFQVLPQU7053-25-31 18:46:00 Test Item Value Reference Range Interpretation Comments Monocytes # (test code 0.5 See_Comment [Aut omated message] The = Monocytes #) system which generated this result tra nsmitted reference range : <=0.8. The reference r mitra was not used to int erpret this result as normal/abnormal . [facility]viewIbptkyxHKEGKTKCCQ3088-52-69 18:46:00 Test Item Value Reference Range Interpretation Comments Basophils (test code = 1.1 See_Comment [Aut omated message] The Basophils) system which ge nerated this result tra nsmitted reference range : <=1.0. The reference r mitra was not used to int erpret this result as normal/abnormal . [facility] LongviewLcmrmwgZKOMLFRZXX1367-16-25 18:46:00 Test Item Value Reference Range Interpretation Comments Lymphocytes # (test code = Lymphocytes 1.5 1.0-5.5 #) [facility]viewOdqbbasIYFOBGKKZK6225-14-17 18:46:00 Test Item Value Reference Range Interpretation Comments Segs-Bands # (test code = Segs-Bands #) 2.9 1.5-8.1 [facility]viewWnjpyhuGWUIYUVDDX4520-76-64 18:46:00 Test Item Value Reference Range Interpretation Comments Eosinophils # (test code 0.2 See_Comment [A utomated message] The = Eosinophils #) system whic h generated this result tra nsmitted reference range : <=0.5. The reference r mitra was not used to int erpret this result as normal/abnormal . [facility]viewDnmcvuzCMYGTHEEHQ0409-78-72 18:46:00 Test Item Value Reference Range Interpretation Comments Basophils # (test code 0.1 See_Comment [Aut omated message] The = Basophils #) system which generated this result tra nsmitted reference range : <=0.2. The reference r mitra was not used to int erpret this result as normal/abnormal . [facility]viewDphzfwdKUCSMVOADS1380-37-94 18:46:00 Test Item Value Reference Range Interpretation Comments PT (test code = PT) 11.2 s 12.0-14.7 [facility]viewNjgyipvMNSOHJYWSH7111-74-17 18:46:00 Test Item Value Reference Range Interpretation Comments INR (test code = INR) 0.82 0.85-1.17 [facility]viewFrxrkdwUXNVMMEEWI0945-55-33 18:46:00 Test Item Value Reference Range Interpretation Comments PTT (test code = PTT) 28.6 s 22.9-35.8 [facility]viewZiakuirNTBPXJWYIL7463-72-55 18:46:00 Test Item Value Reference Range Interpretation Comments MPV (test code = MPV) 8.1 7.4-10.4 [facility] LongviewZsixsfsYIVAVCWAIX3973-52-86 18:46:00 Test Item Value Reference Range Interpretation Comments Platelet (test code = Platelet) 301 133-450 [facility]viewEturhqkQYDDRBUMKZ5645-96-55 18:46:00 Test Item Value Reference Range Interpretation Comments RDW (test code = RDW) 14.5 11.5-14.5 [facility]GvnrpomBLTJHZQFQZ5444-71-41 18:46:00 Test Item Value Reference Range Interpretation Comments RBC (test code = RBC) 4.84 4.70-6.10 [facility]viewXehjwlfATGHBQODAE5451-58-32 18:46:00 Test Item Value Reference Range Interpretation Comments Hgb (test code = Hgb) 14.4 14.0-18.0 [facility]viewJubnwwiLMZHLMCDIM3523-32-17 18:46:00 Test Item Value Reference Range Interpretation Comments WBC (test code = WBC) 5.2 3.7-10.4 [facility]viewOxilwygABLVFJNRKD3395-29-86 18:46:00 Test Item Value Reference Range Interpretation Comments MCH (test code = MCH) 29.8 pg 27.0-31.0 [facility]viewUklhxxmGNMEYWBFCS3682-18-84 18:46:00 Test Item Value Reference Range Interpretation Comments MCV (test code = MCV) 92.0 80.0-94.0 [facility] HospitalHnchmapCKBUWIDYSD3040-14-28 18:46:00 Test Item Value Reference Range Interpretation Comments Hct (test code = Hct) 44.5 42.0-54.0 [facility] HospitalUrnjkgaJKXJQIOYXK6434-10-00 18:46:00 Test Item Value Reference Range Interpretation Comments MCHC (test code = MCHC) 32.4 32.0-36.[address] [facility] CenterTnvlzypLLHUSFQDUJ2271-78-82 18:46:00 Test Item Value Reference Range Interpretation Comments [place]-Hep C Ab (test Negative *NA*(07/22/14 code = [place]-Hep C 1:46 PM) Ab) [facility] AND [id number] 18:46:00 Test Item Value Reference Range Interpretation Comments UA Urobilinogen (test code = UA <=1.0 mg/dL 0.1-1.0 Urobilinogen) [facility] AND [id number] 18:46:00 Test Item Value Reference Range Interpretation Comments UA Sq Epi (test code = UA Sq Epi) None Seen [facility] AND [id number] 18:46:00 Test Item Value Reference Range Interpretation Comments UA Leuk Est (test Negative (07/22/14 1:46 code = UA Leuk Est) PM) [facility] AND [id number] 18:46:00 Test Item Value Reference Range Interpretation Comments UA Nitrite (test code Negative (07/22/14 1:46 = UA Nitrite) PM) [facility] AND [id number] 18:46:00 Test Item Value Reference Range Interpretation Comments UA Blood (test code = Negative (07/22/14 1:46 UA Blood) PM) [facility] AND [id number] 18:46:00 Test Item Value Reference Range Interpretation Comments UA Ketones (test code = UA Negative mg/dL Ketones) [facility] AND [id number] 18:46:00 Test Item Value Reference Range Interpretation Comments UA Bili (test code = Negative *NA*(07/22/14 UA Bili) 1:46 PM) [facility] AND [id number] 18:46:00 Test Item Value Reference Range Interpretation Comments UA Bacteria (test code = UA Occasional /HPF Bacteria) [facility] AND [id number] 18:46:00 Test Item Value Reference Range Interpretation Comments UA RBC (test code = no gt See_Comment [Automa elizabeth message] The UA RBC) system which ge nerated this result transmit elizabeth reference range : <=2. The reference range was not used to interpr et this result as margaret l/abnormal. [facility] AND [id number] 18:46:00 Test Item Value Reference Range Interpretation Comments UA WBC (test code = 1 See_Comment [Automa elizabeth message] The UA WBC) system which ge nerated this result transmit elizabeth reference range : <=5. The reference range was not used to interpr et this result as margaret l/abnormal. [facility] AND [id number] 18:46:00 Test Item Value Reference Range Interpretation Comments UA Glucose (test code = UA Glucose) 30 mg/dL [facility] AND [id number] 18:46:00 Test Item Value Reference Range Interpretation Comments UA Protein (test code = UA Negative mg/dL Protein) [facility] AND [id number] 18:46:00 Test Item Value Reference Range Interpretation Comments UA pH (test code = UA pH) 6.5 5.0-8.0 [facility] AND [id number] 18:46:00 Test Item Value Reference Range Interpretation Comments UA Turbidity (test code = Clear (07/22/14 1:46 UA Turbidity) PM) [facility] AND [id number] 18:46:00 Test Item Value Reference Range Interpretation Comments UA Spec Grav (test code = UA Spec Grav) 1.010 [facility] AND [id number] 18:46:00 Test Item Value Reference Range Interpretation Comments UA Color (test code = Light Yellow UA Color) *NA*(07/22/14 1:46 PM) [facility] [id number] 18:46:00 Test Item Value Reference Range Interpretation Comments Magnesium Lvl (test code = Magnesium 1.8 1.8-2.4 Lvl) [facility] BranchJinlahxENBPFCIWZOZN6893-92-77 18:46:00 Test Item Value Reference Range Interpretation Comments AGAP (test code = AGAP) 13.2 10.0-20.0 [facility] BranchJfkksdvQWWYAJKDRQRD3068-08-77 18:46:00 Test Item Value Reference Range Interpretation Comments B/C Ratio (test code = B/C Ratio) 18 6-25 [facility] BranchTurtajtNFEPQPHRGKUB9072-09-41 18:46:00 Test Item Value Reference Range Interpretation Comments A/G Ratio (test code = A/G Ratio) 1.1 0.7-1.6 [facility] BranchQbmcqdpKTYGHITWAKGF0538-61-23 18:46:00 Test Item Value Reference Range Interpretation Comments Globulin (test code = Globulin) 3.3 2.0-4.0 [facility] BranchFhiczljOXHRNGUYDZEB2463-02-27 18:46:00 Test Item Value Reference Range Interpretation Comments eGFR (test code = eGFR) 99 [facility] BranchPibacndWFUMMGXRGJPC6665-52-51 18:46:00 Test Item Value Reference Range Interpretation Comments Calcium Lvl (test code = Calcium Lvl) 9.0 8.5-10.5 [facility] BranchXembahjZKNROFLTTMGY6021-82-50 18:46:00 Test Item Value Reference Range Interpretation Comments Chloride Lvl (test code = Chloride Lvl) 106 95-109 [facility] BranchWqflkpeEJMYGQDGLRPP4798-29-71 18:46:00 Test Item Value Reference Range Interpretation Comments Creatinine Lvl (test code = Creatinine 0.9 0.5-1.4 Lvl) [facility] BranchYbfauhrKPRBLVQDPBGR9166-50-20 18:46:00 Test Item Value Reference Range Interpretation Comments Potassium Lvl (test code = Potassium 4.2 3.5-5.1 Lvl) [facility] BranchTvbdqjvCHHLITAVNSBX5112-47-37 18:46:00 Test Item Value Reference Range Interpretation Comments Sodium Lvl (test code = Sodium Lvl) 139 135-145 [facility] BranchBmzanwxEAQSIQETJZQA3606-52-23 18:46:00 Test Item Value Reference Range Interpretation Comments CO2 (test code = CO2) 24 24-32 [facility] BranchNqivjwuPSZDXJEOKEIG4104-14-83 18:46:00 Test Item Value Reference Range Interpretation Comments BUN (test code = BUN) 16 7-22 [facility] BranchYszvuzlOSYXYIVVUUXV8868-97-93 18:46:00 Test Item Value Reference Range Interpretation Comments Glucose Lvl (test code = Glucose Lvl) 141 70-99 [facility] BranchEuqxhgcBMPJHTIGFAEL8739-42-49 18:46:00 Test Item Value Reference Range Interpretation Comments Albumin Lvl (test code = Albumin Lvl) 3.6 3.5-5.0 [facility] BranchHogywixAKDQWVMZSCZT9973-03-62 18:46:00 Test Item Value Reference Range Interpretation Comments Alk Phos (test code = Alk Phos) 65 39-136 [facility] BranchFnyrjvaQCDJCYDDENQA3019-66-51 18:46:00 Test Item Value Reference Range Interpretation Comments Bili Total (test code = Bili Total) 0.3 0.2-1.3 [facility] BranchCifegslNKHMKODHWFOJ3386-12-50 18:46:00 Test Item Value Reference Range Interpretation Comments ALT (test code = ALT) 100 See_Comment [Auto mated message] The system which ge nerated this result transmit elizabeth reference range : <=65. The reference range was not used to interpr et this result as margaret l/abnormal. [facility] BranchXedbcqcHAZYDFCBTMYK6901-35-73 18:46:00 Test Item Value Reference Range Interpretation Comments AST (test code = AST) 53 See_Comment [Auto mated message] The system which ge nerated this result transmit elizabeth reference range : <=37. The reference range was not used to interpr et this result as margaret l/abnormal. [facility] BranchOgjgwvsJAKXOJHHJHSM8659-99-13 18:46:00 Test Item Value Reference Range Interpretation Comments Total Protein (test code = Total 6.9 6.4-8.4 Protein) [facility]viewCxaebewLQRSCPALOW0049-01-14 18:46:00 Test Item Value Reference Range Interpretation Comments Eosinophils (test code = 4.2 See_Comment [A utomated message] The Eosinophils) system which ge nerated this result tra nsmitted reference range : <=4.0. The reference r mitra was not used to int erpret this result as normal/abnormal . [facility]viewBpvjiupAPKRBCNAAJ6101-00-79 18:46:00 Test Item Value Reference Range Interpretation Comments Segs (test code = Segs) 56.4 45.0-75.0 [facility] LongviewOkcjqbkKENZUJALGR0733-56-04 18:46:00 Test Item Value Reference Range Interpretation Comments Monocytes (test code = Monocytes) 10.3 2.0-12.0 [facility]viewQvjbtxaVCLVXGBIDQ5747-81-53 18:46:00 Test Item Value Reference Range Interpretation Comments Lymphocytes (test code = Lymphocytes) 28.0 20.0-40.0 [facility]viewBprwlavQJUAZOLVHZ4717-04-04 18:46:00 Test Item Value Reference Range Interpretation Comments Monocytes # (test code 0.5 See_Comment [Aut omated message] The = Monocytes #) system which generated this result tra nsmitted reference range : <=0.8. The reference r mitra was not used to int erpret this result as normal/abnormal . [facility] LongviewAkwgypjOZYUGEEJQV3593-38-07 18:46:00 Test Item Value Reference Range Interpretation Comments Basophils (test code = 1.1 See_Comment [Aut omated message] The Basophils) system which ge nerated this result tra nsmitted reference range : <=1.0. The reference r mitra was not used to int erpret this result as normal/abnormal . [facility] LongviewCzbembgFKNYIQMYYH7731-00-28 18:46:00 Test Item Value Reference Range Interpretation Comments Lymphocytes # (test code = Lymphocytes 1.5 1.0-5.5 #) [facility] LongviewYnjzzajMJBWAUEBPK2948-80-12 18:46:00 Test Item Value Reference Range Interpretation Comments Segs-Bands # (test code = Segs-Bands #) 2.9 1.5-8.1 [facility]viewWqxrcfiMLZVSYIQYW9092-64-32 18:46:00 Test Item Value Reference Range Interpretation Comments Eosinophils # (test code 0.2 See_Comment [A utomated message] The = Eosinophils #) system whic h generated this result tra nsmitted reference range : <=0.5. The reference r mitra was not used to int erpret this result as normal/abnormal . [facility] LongviewIofpztpDDKHHQSKPZ3575-41-03 18:46:00 Test Item Value Reference Range Interpretation Comments Basophils # (test code 0.1 See_Comment [Aut omated message] The = Basophils #) system which generated this result tra nsmitted reference range : <=0.2. The reference r mitra was not used to int erpret this result as normal/abnormal . [facility]viewVnimgkfOEAUAVSXKA3473-79-90 18:46:00 Test Item Value Reference Range Interpretation Comments PT (test code = PT) 11.2 s 12.0-14.7 [facility] LongviewQrbmljbNFLDFOVHEJ3171-67-92 18:46:00 Test Item Value Reference Range Interpretation Comments INR (test code = INR) 0.82 0.85-1.17 [facility]viewKgytkikOZYJKTRCRE6429-08-53 18:46:00 Test Item Value Reference Range Interpretation Comments PTT (test code = PTT) 28.6 s 22.9-35.8 [facility]viewEklytzvFJYQHDHJHV3030-24-88 18:46:00 Test Item Value Reference Range Interpretation Comments MPV (test code = MPV) 8.1 7.4-10.4 [facility]viewPimtoyuRABGFMVGVL3690-13-35 18:46:00 Test Item Value Reference Range Interpretation Comments Platelet (test code = Platelet) 301 133-450 [facility] LongviewKouyzcnFDUXEFYQFY8912-53-34 18:46:00 Test Item Value Reference Range Interpretation Comments RDW (test code = RDW) 14.5 11.5-14.5 [facility] LongviewScgiddvPOCNBZMJYJ4758-39-76 18:46:00 Test Item Value Reference Range Interpretation Comments RBC (test code = RBC) 4.84 4.70-6.10 [facility] LongviewDrfisprJYULCAPAAI5006-99-25 18:46:00 Test Item Value Reference Range Interpretation Comments Hgb (test code = Hgb) 14.4 14.0-18.[address] [facility] [address] CenterBnkddkyYHJWMEAGZT7662-16-21 18:46:00 Test Item Value Reference Range Interpretation Comments WBC (test code = WBC) 5.2 3.7-10.4 [facility] HospitalVvjpsliGNJEFTRPNQ9984-39-31 18:46:00 Test Item Value Reference Range Interpretation Comments MCH (test code = MCH) 29.8 pg 27.0-31.0 [facility]viewFqjcxirSJKHMNLFJY9971-77-02 18:46:00 Test Item Value Reference Range Interpretation Comments MCV (test code = MCV) 92.0 80.0-94.0 [facility] HospitalBwggvmsBMAJYSCIJI1905-72-25 18:46:00 Test Item Value Reference Range Interpretation Comments Hct (test code = Hct) 44.5 42.0-54.0 [facility] LongviewRleaphsEFQWYHNJEQ1166-52-84 18:46:00 Test Item Value Reference Range Interpretation Comments MCHC (test code = MCHC) 32.4 32.0-36.0 [facility] [facility] Cent[id number] 18:46:00 Test Item Value Reference Range Interpretation Comments [place]-Hep C Ab (test Negative *NA*(07/22/14 code = [place]-Hep C 1:46 PM) Ab) [facility] AND [id number] 18:46:00 Test Item Value Reference Range Interpretation Comments UA Urobilinogen (test code = UA <=1.0 mg/dL 0.1-1.0 Urobilinogen) [facility] AND [id number] 18:46:00 Test Item Value Reference Range Interpretation Comments UA Sq Epi (test code = UA Sq Epi) None Seen [facility] AND [id number] 18:46:00 Test Item Value Reference Range Interpretation Comments UA Leuk Est (test Negative (07/22/14 1:46 code = UA Leuk Est) PM) [facility] AND [id number] 18:46:00 Test Item Value Reference Range Interpretation Comments UA Nitrite (test code Negative (07/22/14 1:46 = UA Nitrite) PM) [facility] AND [id number] 18:46:00 Test Item Value Reference Range Interpretation Comments UA Blood (test code = Negative (07/22/14 1:46 UA Blood) PM) [facility] AND [id number] 18:46:00 Test Item Value Reference Range Interpretation Comments UA Ketones (test code = UA Negative mg/dL Ketones) [facility] AND [id number] 18:46:00 Test Item Value Reference Range Interpretation Comments UA Bili (test code = Negative *NA*(07/22/14 UA Bili) 1:46 PM) [facility] AND [id number] 18:46:00 Test Item Value Reference Range Interpretation Comments UA Bacteria (test code = UA Occasional /HPF Bacteria) [facility] AND [id number] 18:46:00 Test Item Value Reference Range Interpretation Comments UA RBC (test code = no gt See_Comment [Automa elizabeth message] The UA RBC) system which ge nerated this result transmit elizabeth reference range : <=2. The reference range was not used to interpr et this result as margaret l/abnormal. [facility] AND [id number] 18:46:00 Test Item Value Reference Range Interpretation Comments UA WBC (test code = 1 See_Comment [Automa elizabeth message] The UA WBC) system which ge nerated this result transmit elizabeth reference range : <=5. The reference range was not used to interpr et this result as margaret l/abnormal. [facility] AND [id number] 18:46:00 Test Item Value Reference Range Interpretation Comments UA Glucose (test code = UA Glucose) 30 mg/dL [facility] AND [id number] 18:46:00 Test Item Value Reference Range Interpretation Comments UA Protein (test code = UA Negative mg/dL Protein) [facility] AND [id number] 18:46:00 Test Item Value Reference Range Interpretation Comments UA pH (test code = UA pH) 6.5 5.0-8.0 [facility] AND [id number] 18:46:00 Test Item Value Reference Range Interpretation Comments UA Turbidity (test code = Clear (07/22/14 1:46 UA Turbidity) PM) [facility] AND [id number] 18:46:00 Test Item Value Reference Range Interpretation Comments UA Spec Grav (test code = UA Spec Grav) 1.010 [facility] AND [id number] 18:46:00 Test Item Value Reference Range Interpretation Comments UA Color (test code = Light Yellow UA Color) *NA*(07/22/14 1:46 PM) [facility]2015-06-09 18:46:00 Test Item Value Reference Range Interpretation Comments Magnesium Lvl (test code = Magnesium 1.8 1.8-2.4 Lvl) [facility]ThnsoymXSIEIRETDGVZ0730-02-26 18:46:00 Test Item Value Reference Range Interpretation Comments AGAP (test code = AGAP) 13.2 10.0-20.0 [facility] BranchYablybwTEJPLKVBSCWK5780-50-55 18:46:00 Test Item Value Reference Range Interpretation Comments B/C Ratio (test code = B/C Ratio) 18 6-25 [facility] BranchEjprybiLVMLUUCEXQQB5140-06-30 18:46:00 Test Item Value Reference Range Interpretation Comments A/G Ratio (test code = A/G Ratio) 1.1 0.7-1.6 [facility] BranchUudvyzuTUUXSIEVWWXR2441-18-70 18:46:00 Test Item Value Reference Range Interpretation Comments Globulin (test code = Globulin) 3.3 2.0-4.0 [facility] BranchZaxjsciESQPOCMXBDGC8465-53-49 18:46:00 Test Item Value Reference Range Interpretation Comments eGFR (test code = eGFR) 99 [facility] BranchNnqcthsBKPVZQYSEVWI9505-33-92 18:46:00 Test Item Value Reference Range Interpretation Comments Calcium Lvl (test code = Calcium Lvl) 9.0 8.5-10.5 [facility] BranchAqkapiuPFMQAISGQNCE0478-32-71 18:46:00 Test Item Value Reference Range Interpretation Comments Chloride Lvl (test code = Chloride Lvl) 106 95-109 [facility] BranchTpqmulePQDUKUGMEIUE4343-43-67 18:46:00 Test Item Value Reference Range Interpretation Comments Creatinine Lvl (test code = Creatinine 0.9 0.5-1.4 Lvl) [facility] BranchMaalpmmBHWTUGJZFBKF3441-37-74 18:46:00 Test Item Value Reference Range Interpretation Comments Potassium Lvl (test code = Potassium 4.2 3.5-5.1 Lvl) [facility] BranchApcdaajHGYNRLMWIEIA7643-01-42 18:46:00 Test Item Value Reference Range Interpretation Comments Sodium Lvl (test code = Sodium Lvl) 139 135-145 [place] [id number] 18:46:00 Test Item Value Reference Range Interpretation Comments CO2 (test code = CO2) 24 24-32 [facility] BranchGoslfvlWIOUZMJCWESJ8361-65-23 18:46:00 Test Item Value Reference Range Interpretation Comments BUN (test code = BUN) 16 7-22 [facility] BranchEhczaeuAQNCLURLIHXQ3885-57-49 18:46:00 Test Item Value Reference Range Interpretation Comments Glucose Lvl (test code = Glucose Lvl) 141 70-99 [facility] BranchFayffwoJVWFRCLZXLIJ8904-17-50 18:46:00 Test Item Value Reference Range Interpretation Comments Albumin Lvl (test code = Albumin Lvl) 3.6 3.5-5.0 [facility] BranchAexjyhqJLONSUOTXMKX9802-30-38 18:46:00 Test Item Value Reference Range Interpretation Comments Alk Phos (test code = Alk Phos) 65 39-136 [facility] BranchQqbzmfqLHSEPNFFJBTX5084-54-38 18:46:00 Test Item Value Reference Range Interpretation Comments Bili Total (test code = Bili Total) 0.3 0.2-1.3 [facility] BranchLgmuayfNEFSRRIDWLGH2444-09-33 18:46:00 Test Item Value Reference Range Interpretation Comments ALT (test code = ALT) 100 See_Comment [Auto mated message] The system which ge nerated this result transmit elizabeth reference range : <=65. The reference range was not used to interpr et this result as margaret l/abnormal. [facility] BranchJewysrtELOLVANBOMKV5136-67-87 18:46:00 Test Item Value Reference Range Interpretation Comments AST (test code = AST) 53 See_Comment [Auto mated message] The system which ge nerated this result transmit elizabeth reference range : <=37. The reference range was not used to interpr et this result as margaret l/abnormal. [facility] BranchAyqrozfLKVKDGWNVWFW7348-72-47 18:46:00 Test Item Value Reference Range Interpretation Comments Total Protein (test code = Total 6.9 6.4-8.4 Protein) [facility] CenterFmywgfgZYBBJXNQBS3126-89-54 18:46:00 Test Item Value Reference Range Interpretation Comments Eosinophils (test code = 4.2 See_Comment [A utomated message] The Eosinophils) system which ge nerated this result tra nsmitted reference range : <=4.0. The reference r mitra was not used to int erpret this result as normal/abnormal . [facility]viewHnuqfjdXSVAVCLDXJ3591-01-72 18:46:00 Test Item Value Reference Range Interpretation Comments Segs (test code = Segs) 56.4 45.0-75.0 [facility]viewSsowpxpUQLXBIHWZG7739-65-35 18:46:00 Test Item Value Reference Range Interpretation Comments Monocytes (test code = Monocytes) 10.3 2.0-12.0 [facility]viewFvvwabbWJFJVBPKBA3901-86-13 18:46:00 Test Item Value Reference Range Interpretation Comments Lymphocytes (test code = Lymphocytes) 28.0 20.0-40.0 [facility]viewBwwtuvmCVEMQKTFWS6130-52-99 18:46:00 Test Item Value Reference Range Interpretation Comments Monocytes # (test code 0.5 See_Comment [Aut omated message] The = Monocytes #) system which generated this result tra nsmitted reference range : <=0.8. The reference r mitra was not used to int erpret this result as normal/abnormal . [facility] LongviewUthjruqXOYZHBIVIB8087-93-38 18:46:00 Test Item Value Reference Range Interpretation Comments Basophils (test code = 1.1 See_Comment [Aut omated message] The Basophils) system which ge nerated this result tra nsmitted reference range : <=1.0. The reference r mitra was not used to int erpret this result as normal/abnormal . [facility]viewEkunstcGZNHPAIXJX4815-87-59 18:46:00 Test Item Value Reference Range Interpretation Comments Lymphocytes # (test code = Lymphocytes 1.5 1.0-5.5 #) [facility]viewYlpzxavCRQJWZXHRF7104-33-70 18:46:00 Test Item Value Reference Range Interpretation Comments Segs-Bands # (test code = Segs-Bands #) 2.9 1.5-8.1 [facility]viewDebsasoHORMRODMMG6747-78-84 18:46:00 Test Item Value Reference Range Interpretation Comments Eosinophils # (test code 0.2 See_Comment [A utomated message] The = Eosinophils #) system whic h generated this result tra nsmitted reference range : <=0.5. The reference r mitra was not used to int erpret this result as normal/abnormal . [facility]viewIadtglrGESYVZRRJR8829-58-71 18:46:00 Test Item Value Reference Range Interpretation Comments Basophils # (test code 0.1 See_Comment [Aut omated message] The = Basophils #) system which generated this result tra nsmitted reference range : <=0.2. The reference r mitra was not used to int erpret this result as normal/abnormal . [facility]viewYhlkvhdDQHMUIEPKT2522-86-35 18:46:00 Test Item Value Reference Range Interpretation Comments PT (test code = PT) 11.2 s 12.0-14.7 [facility]viewLnnvqjqURKBTCTYTH0097-14-05 18:46:00 Test Item Value Reference Range Interpretation Comments INR (test code = INR) 0.82 0.85-1.17 [facility]viewSxrnpfhOOWHUMRNZD8730-29-60 18:46:00 Test Item Value Reference Range Interpretation Comments PTT (test code = PTT) 28.6 s 22.9-35.8 [facility]viewOdmeyoaGFROSFZTQQ2567-66-13 18:46:00 Test Item Value Reference Range Interpretation Comments MPV (test code = MPV) 8.1 7.4-10.4 [facility]viewOmvucxaRKYYTUZDYC8676-24-07 18:46:00 Test Item Value Reference Range Interpretation Comments Platelet (test code = Platelet) 301 133-450 [facility]viewPnubkggUPPXSPPJCL8398-95-91 18:46:00 Test Item Value Reference Range Interpretation Comments RDW (test code = RDW) 14.5 11.5-14.5 [facility]viewTvbjxfeNWKGWZCZVN9222-68-33 18:46:00 Test Item Value Reference Range Interpretation Comments RBC (test code = RBC) 4.84 4.70-6.10 [facility]viewYsjuecdDSMIOQTDOX2674-31-90 18:46:00 Test Item Value Reference Range Interpretation Comments Hgb (test code = Hgb) 14.4 14.0-18.0 [facility]viewIjhzvtbCSJJYIXOGB6493-73-62 18:46:00 Test Item Value Reference Range Interpretation Comments WBC (test code = WBC) 5.2 3.7-10.4 [facility]viewKgsrwbbXDZRDKDABW6014-39-71 18:46:00 Test Item Value Reference Range Interpretation Comments MCH (test code = MCH) 29.8 pg 27.0-31.0 [facility]viewFwlvxqfFIUUHNSROQ3320-35-36 18:46:00 Test Item Value Reference Range Interpretation Comments MCV (test code = MCV) 92.0 80.0-94.0 [facility]viewIkltlxkZHPAGLMTYR9142-15-28 18:46:00 Test Item Value Reference Range Interpretation Comments Hct (test code = Hct) 44.5 42.0-54.0 [facility] MxnmdvhAYASMEFOBM4847-66-32 18:46:00 Test Item Value Reference Range Interpretation Comments MCHC (test code = MCHC) 32.4 32.0-36.0 [facility] AypyyepXGMYLDVUXE5066-68-81 18:46:00 Test Item Value Reference Range Interpretation Comments [place]-Hep C Ab (test Negative *NA*(07/22/14 code = [place]Hep C 1:46 PM) Ab) [facility] AND [id number] 18:46:00 Test Item Value Reference Range Interpretation Comments UA Urobilinogen (test code = UA <=1.0 mg/dL 0.1-1.0 Urobilinogen) [facility] AND [id number] 18:46:00 Test Item Value Reference Range Interpretation Comments UA Sq Epi (test code = UA Sq Epi) None Seen [facility] AND [id number] 18:46:00 Test Item Value Reference Range Interpretation Comments UA Leuk Est (test Negative (07/22/14 1:46 code = UA Leuk Est) PM) [facility] [id number] 18:46:00 Test Item Value Reference Range Interpretation Comments UA Nitrite (test code Negative (07/22/14 1:46 = UA Nitrite) PM) [facility] AND [id number] 18:46:00 Test Item Value Reference Range Interpretation Comments UA Blood (test code = Negative (07/22/14 1:46 UA Blood) PM) [facility] [id number] 18:46:00 Test Item Value Reference Range Interpretation Comments UA Ketones (test code = UA Negative mg/dL Ketones) [facility] [id number] 18:46:00 Test Item Value Reference Range Interpretation Comments UA Bili (test code = Negative *NA*(07/22/14 UA Bili) 1:46 PM) [facility] [id number] 18:46:00 Test Item Value Reference Range Interpretation Comments UA Bacteria (test code = UA Occasional /HPF Bacteria) [facility] [id number] 18:46:00 Test Item Value Reference Range Interpretation Comments UA RBC (test code = no gt See_Comment [Automa elizabeth message] The UA RBC) system which ge nerated this result transmit elizabeth reference range : <=2. The reference range was not used to interpr et this result as margaret l/abnormal. [facility] AND [id number] 18:46:00 Test Item Value Reference Range Interpretation Comments UA WBC (test code = 1 See_Comment [Automa elizabeth message] The UA WBC) system which ge nerated this result transmit elizabeth reference range : <=5. The reference range was not used to interpr et this result as margaret l/abnormal. [facility] AND [id number] 18:46:00 Test Item Value Reference Range Interpretation Comments UA Glucose (test code = UA Glucose) 30 mg/dL [facility] AND [id number] 18:46:00 Test Item Value Reference Range Interpretation Comments UA Protein (test code = UA Negative mg/dL Protein) [facility] AND [id number] 18:46:00 Test Item Value Reference Range Interpretation Comments UA pH (test code = UA pH) 6.5 5.0-8.0 [facility] AND [id number] 18:46:00 Test Item Value Reference Range Interpretation Comments UA Turbidity (test code = Clear (07/22/14 1:46 UA Turbidity) PM) [facility] AND [id number] 18:46:00 Test Item Value Reference Range Interpretation Comments UA Spec Grav (test code = UA Spec Grav) 1.010 [facility] AND [id number] 18:46:00 Test Item Value Reference Range Interpretation Comments UA Color (test code = Light Yellow UA Color) *NA*(07/22/14 1:46 PM) [facility]CHE[facility] [id number] 18:46:00 Test Item Value Reference Range Interpretation Comments Magnesium Lvl (test code = Magnesium 1.8 1.8-2.4 Lvl) [facility]XtwbyblZOKIFJYFWWLM1413-24-81 18:46:00 Test Item Value Reference Range Interpretation Comments AGAP (test code = AGAP) 13.2 10.0-20.0 [facility] ChildrenOzvwoadJHSWJQOMXGUY4215-15-30 18:46:00 Test Item Value Reference Range Interpretation Comments B/C Ratio (test code = B/C Ratio) 18 6-25 [facility] BranchMugaxthSHCYJYERUIVE8663-13-39 18:46:00 Test Item Value Reference Range Interpretation Comments A/G Ratio (test code = A/G Ratio) 1.1 0.7-1.6 [facility] BranchPzvvzzsLLZZFZHZCAMZ0589-36-44 18:46:00 Test Item Value Reference Range Interpretation Comments Globulin (test code = Globulin) 3.3 2.0-4.0 [facility] BranchHqcipawFWHPDBINZQYJ2286-80-91 18:46:00 Test Item Value Reference Range Interpretation Comments eGFR (test code = eGFR) 99 [facility] BranchLdajxayAVMADBZLTEJJ9223-85-15 18:46:00 Test Item Value Reference Range Interpretation Comments Calcium Lvl (test code = Calcium Lvl) 9.0 8.5-10.5 [facility] BranchCqnzatqFYLMIGECVRKQ2313-86-01 18:46:00 Test Item Value Reference Range Interpretation Comments Chloride Lvl (test code = Chloride Lvl) 106 95-109 [facility] BranchFulwrzvGSYPADBGTSQV9041-04-23 18:46:00 Test Item Value Reference Range Interpretation Comments Creatinine Lvl (test code = Creatinine 0.9 0.5-1.4 Lvl) [facility] BranchAjgexbnVYPOTLCEPGBE0306-47-94 18:46:00 Test Item Value Reference Range Interpretation Comments Potassium Lvl (test code = Potassium 4.2 3.5-5.1 Lvl) [facility] BranchCqgthuuHBWTBVRHMIZX2234-05-39 18:46:00 Test Item Value Reference Range Interpretation Comments Sodium Lvl (test code = Sodium Lvl) 139 135-145 [facility] BranchOtoanwcJKSBHICJLSDI0708-82-66 18:46:00 Test Item Value Reference Range Interpretation Comments CO2 (test code = CO2) 24 24-32 [facility] BranchDkvlqogPXVXFJUUNSDW7125-27-60 18:46:00 Test Item Value Reference Range Interpretation Comments BUN (test code = BUN) 16 7-22 [facility] BranchMhqfcqaMDVXYBBDSMVT5367-58-70 18:46:00 Test Item Value Reference Range Interpretation Comments Glucose Lvl (test code = Glucose Lvl) 141 70-99 [facility] BranchPbpsztpJTIEGAYOGGDN3869-44-68 18:46:00 Test Item Value Reference Range Interpretation Comments Albumin Lvl (test code = Albumin Lvl) 3.6 3.5-5.0 [facility] BranchZxvhcjlLVPCDKWJCICL9506-09-87 18:46:00 Test Item Value Reference Range Interpretation Comments Alk Phos (test code = Alk Phos) 65 39-136 [facility] BranchHkhwpgjBGYSQGXXJFKJ5229-13-52 18:46:00 Test Item Value Reference Range Interpretation Comments Bili Total (test code = Bili Total) 0.3 0.2-1.3 [facility] BranchVdnltmlQRNUYREELTJH8270-78-80 18:46:00 Test Item Value Reference Range Interpretation Comments ALT (test code = ALT) 100 See_Comment [Auto mated message] The system which ge nerated this result transmit elizabeth reference range : <=65. The reference range was not used to interpr et this result as margaret l/abnormal. [facility] BranchLyijpvgHLZACJYLQSYL6538-85-77 18:46:00 Test Item Value Reference Range Interpretation Comments AST (test code = AST) 53 See_Comment [Auto mated message] The system which ge nerated this result transmit elizabeth reference range : <=37. The reference range was not used to interpr et this result as margaret l/abnormal. [facility] BranchZqvyoqjMEAHPQOHOWGM2303-31-32 18:46:00 Test Item Value Reference Range Interpretation Comments Total Protein (test code = Total 6.9 6.4-8.4 Protein) [facility]viewGnoekqjWJWCHFXTVX4506-88-05 18:46:00 Test Item Value Reference Range Interpretation Comments Eosinophils (test code = 4.2 See_Comment [A utomated message] The Eosinophils) system which ge nerated this result tra nsmitted reference range : <=4.0. The reference r mitra was not used to int erpret this result as normal/abnormal . [facility]viewZuifvdzEZWCIUQYVH2860-39-27 18:46:00 Test Item Value Reference Range Interpretation Comments Segs (test code = Segs) 56.4 45.0-75.0 [facility]viewVoavvhiWRVQFCYWPT6757-69-79 18:46:00 Test Item Value Reference Range Interpretation Comments Monocytes (test code = Monocytes) 10.3 2.0-12.0 [facility]viewKuauuioQXWSPNTWJW3675-87-95 18:46:00 Test Item Value Reference Range Interpretation Comments Lymphocytes (test code = Lymphocytes) 28.0 20.0-40.0 [facility]viewSdqloahQHHQTIOBXQ5983-19-29 18:46:00 Test Item Value Reference Range Interpretation Comments Monocytes # (test code 0.5 See_Comment [Aut omated message] The = Monocytes #) system which generated this result tra nsmitted reference range : <=0.8. The reference r mitra was not used to int erpret this result as normal/abnormal . [facility]viewNrsfdqbQNZXVPBTDT2821-93-97 18:46:00 Test Item Value Reference Range Interpretation Comments Basophils (test code = 1.1 See_Comment [Aut omated message] The Basophils) system which ge nerated this result tra nsmitted reference range : <=1.0. The reference r mitra was not used to int erpret this result as normal/abnormal . [facility]viewCklrfspXCKWMKUPXC9193-23-70 18:46:00 Test Item Value Reference Range Interpretation Comments Lymphocytes # (test code = Lymphocytes 1.5 1.0-5.5 #) [facility] LongviewLngdjleAQMRONSZIG1063-31-16 18:46:00 Test Item Value Reference Range Interpretation Comments Segs-Bands # (test code = Segs-Bands #) 2.9 1.5-8.1 [facility]viewIrybikzLUAHPLZKJN8517-04-81 18:46:00 Test Item Value Reference Range Interpretation Comments Eosinophils # (test code 0.2 See_Comment [A utomated message] The = Eosinophils #) system whic h generated this result tra nsmitted reference range : <=0.5. The reference r mitra was not used to int erpret this result as normal/abnormal . [facility]viewIxwrojzIGBZKVSSHP1005-06-34 18:46:00 Test Item Value Reference Range Interpretation Comments Basophils # (test code 0.1 See_Comment [Aut omated message] The = Basophils #) system which generated this result tra nsmitted reference range : <=0.2. The reference r mitra was not used to int erpret this result as normal/abnormal . [facility]viewOclktvoCDYYUBZRRJ8995-04-03 18:46:00 Test Item Value Reference Range Interpretation Comments PT (test code = PT) 11.2 s 12.0-14.7 [facility]viewLfggqkwCAOQNJQQDS9219-85-28 18:46:00 Test Item Value Reference Range Interpretation Comments INR (test code = INR) 0.82 0.85-1.17 [facility]viewWrqcgkzNKJBQACYAR3421-94-56 18:46:00 Test Item Value Reference Range Interpretation Comments PTT (test code = PTT) 28.6 s 22.9-35.8 [facility]TjcivbpIHXPWNMHBB2501-45-[facility] 18:46:00 Test Item Value Reference Range Interpretation Comments MPV (test code = MPV) 8.1 7.4-10.4 [facility] HospitalFhosqjqTXJUGZSKPB1266-77-53 18:46:00 Test Item Value Reference Range Interpretation Comments Platelet (test code = Platelet) 301 133-[address] [facility] CenterJzbveveYXCACGPWOW4174-68-97 18:46:00 Test Item Value Reference Range Interpretation Comments RDW (test code = RDW) 14.5 11.5-14.5 [facility] HospitalSvgbqyfFOSRMOHFYB0556-18-56 18:46:00 Test Item Value Reference Range Interpretation Comments RBC (test code = RBC) 4.84 4.70-6.10 [facility] HospitalCcnzmtjDINCNKVKXU6686-01-14 18:46:00 Test Item Value Reference Range Interpretation Comments Hgb (test code = Hgb) 14.4 14.0-18.[address] [facility] CenterNelbaedBQUOCWIXDU1815-75-68 18:46:00 Test Item Value Reference Range Interpretation Comments WBC (test code = WBC) 5.2 3.7-10.[address] [facility] CenterVurlpohAJMTWKDRLP1001-19-66 18:46:00 Test Item Value Reference Range Interpretation Comments MCH (test code = MCH) 29.8 pg 27.0-31.0 [facility] HospitalRhuuojuGBNJAQMXOP0618-20-97 18:46:00 Test Item Value Reference Range Interpretation Comments MCV (test code = MCV) 92.0 80.0-94.[address] [facility] CenterEciirtxYSXAWBCJNI3525-20-56 18:46:00 Test Item Value Reference Range Interpretation Comments Hct (test code = Hct) 44.5 42.0-54.0 [facility]YqxukfmNHWPXQRIOK8142-27-16 18:46:00 Test Item Value Reference Range Interpretation Comments MCHC (test code = MCHC) 32.4 32.0-36.[address] [facility] CenterJgasaotVEOXRAGIWS5739-15-99 18:46:00 Test Item Value Reference Range Interpretation Comments [place]-Hep C Ab (test Negative *NA*(07/22/14 code = [place]-Hep C 1:46 PM) Ab) [facility] AND [id number] 18:46:00 Test Item Value Reference Range Interpretation Comments UA Urobilinogen (test code = UA <=1.0 mg/dL 0.1-1.0 Urobilinogen) [facility] AND [id number] 18:46:00 Test Item Value Reference Range Interpretation Comments UA Sq Epi (test code = UA Sq Epi) None Seen [facility] AND [id number] 18:46:00 Test Item Value Reference Range Interpretation Comments UA Leuk Est (test Negative (07/22/14 1:46 code = UA Leuk Est) PM) [facility] AND [id number] 18:46:00 Test Item Value Reference Range Interpretation Comments UA Nitrite (test code Negative (07/22/14 1:46 = UA Nitrite) PM) [facility] AND [id number] 18:46:00 Test Item Value Reference Range Interpretation Comments UA Blood (test code = Negative (07/22/14 1:46 UA Blood) PM) [facility] AND [id number] 18:46:00 Test Item Value Reference Range Interpretation Comments UA Ketones (test code = UA Negative mg/dL Ketones) [facility] AND [id number] 18:46:00 Test Item Value Reference Range Interpretation Comments UA Bili (test code = Negative *NA*(07/22/14 UA Bili) 1:46 PM) [facility] AND [id number] 18:46:00 Test Item Value Reference Range Interpretation Comments UA Bacteria (test code = UA Occasional /HPF Bacteria) [facility] AND [id number] 18:46:00 Test Item Value Reference Range Interpretation Comments UA RBC (test code = no gt See_Comment [Automa elizabeth message] The UA RBC) system which ge nerated this result transmit elizabeth reference range : <=2. The reference range was not used to interpr et this result as margaret l/abnormal. [facility] AND [id number] 18:46:00 Test Item Value Reference Range Interpretation Comments UA WBC (test code = 1 See_Comment [Automa elizabeth message] The UA WBC) system which ge nerated this result transmit elizabeth reference range : <=5. The reference range was not used to interpr et this result as margaret l/abnormal. [facility] AND [id number] 18:46:00 Test Item Value Reference Range Interpretation Comments UA Glucose (test code = UA Glucose) 30 mg/dL [facility] AND [id number] 18:46:00 Test Item Value Reference Range Interpretation Comments UA Protein (test code = UA Negative mg/dL Protein) [facility] AND [id number] 18:46:00 Test Item Value Reference Range Interpretation Comments UA pH (test code = UA pH) 6.5 5.0-8.0 [facility] AND [id number] 18:46:00 Test Item Value Reference Range Interpretation Comments UA Turbidity (test code = Clear (07/22/14 1:46 UA Turbidity) PM) [facility] AND [id number] 18:46:00 Test Item Value Reference Range Interpretation Comments UA Spec Grav (test code = UA Spec Grav) 1.010 [facility] AND [id number] 18:46:00 Test Item Value Reference Range Interpretation Comments UA Color (test code = Light Yellow UA Color) *NA*(07/22/14 1:46 PM) [facility] [id number] 18:46:00 Test Item Value Reference Range Interpretation Comments Magnesium Lvl (test code = Magnesium 1.8 1.8-2.4 Lvl) [facility]NyejqyiFYPZDPKQYCLA9734-34-43 18:46:00 Test Item Value Reference Range Interpretation Comments AGAP (test code = AGAP) 13.2 10.0-20.0 [facility] BranchQflfaruXDRPQTYIJFJU9184-50-37 18:46:00 Test Item Value Reference Range Interpretation Comments B/C Ratio (test code = B/C Ratio) 18 6-25 [facility] BranchIcbauocJAFLGPFVZLHQ7566-12-40 18:46:00 Test Item Value Reference Range Interpretation Comments A/G Ratio (test code = A/G Ratio) 1.1 0.7-1.6 [facility] BranchDejesajCPEVKKIIDDWN6163-13-73 18:46:00 Test Item Value Reference Range Interpretation Comments Globulin (test code = Globulin) 3.3 2.0-4.0 [facility] BranchLrclbgjLCBLZWAJPBLH2833-71-05 18:46:00 Test Item Value Reference Range Interpretation Comments eGFR (test code = eGFR) 99 [facility] BranchWzigklnZGVHNIXTBQKG4489-85-16 18:46:00 Test Item Value Reference Range Interpretation Comments Calcium Lvl (test code = Calcium Lvl) 9.0 8.5-10.5 [facility] BranchMnhptxcEQUIQZYTYVDQ0248-51-34 18:46:00 Test Item Value Reference Range Interpretation Comments Chloride Lvl (test code = Chloride Lvl) 106 95-109 [facility] BranchMgxmtmtJUIMPYAYKJMT1600-17-50 18:46:00 Test Item Value Reference Range Interpretation Comments Creatinine Lvl (test code = Creatinine 0.9 0.5-1.4 Lvl) [facility] BranchDikonmoMFQBWNDLYJSW9590-32-65 18:46:00 Test Item Value Reference Range Interpretation Comments Potassium Lvl (test code = Potassium 4.2 3.5-5.1 Lvl) [facility] BranchQetzdauJIZDFTOVQZSN1704-91-81 18:46:00 Test Item Value Reference Range Interpretation Comments Sodium Lvl (test code = Sodium Lvl) 139 135-145 [facility] BranchSpqgagjAEWOPSKUDXAG7053-59-03 18:46:00 Test Item Value Reference Range Interpretation Comments CO2 (test code = CO2) 24 24-32 [facility] BranchOlhahqsAVLVCUIGBXXX4909-42-15 18:46:00 Test Item Value Reference Range Interpretation Comments BUN (test code = BUN) 16 7-22 [facility] BranchQxgdojfOVNYLZMRMQMZ7604-10-83 18:46:00 Test Item Value Reference Range Interpretation Comments Glucose Lvl (test code = Glucose Lvl) 141 70-99 [facility] BranchCkskpkkJZJIARBWAJPJ2893-93-96 18:46:00 Test Item Value Reference Range Interpretation Comments Albumin Lvl (test code = Albumin Lvl) 3.6 3.5-5.0 [facility] BranchWmlymxjTGQBDNELRYBT8608-44-61 18:46:00 Test Item Value Reference Range Interpretation Comments Alk Phos (test code = Alk Phos) 65 39-136 [facility] BranchSrdharpAPHFRDVXLXTG3531-26-49 18:46:00 Test Item Value Reference Range Interpretation Comments Bili Total (test code = Bili Total) 0.3 0.2-1.3 [facility] BranchJoatqrlQOSBEWICNMGP1483-97-67 18:46:00 Test Item Value Reference Range Interpretation Comments ALT (test code = ALT) 100 See_Comment [Auto mated message] The system which ge nerated this result transmit elizabeth reference range : <=65. The reference range was not used to interpr et this result as margaret l/abnormal. [facility] BranchZvbheykNLDBBLZFFERQ5695-78-39 18:46:00 Test Item Value Reference Range Interpretation Comments AST (test code = AST) 53 See_Comment [Auto mated message] The system which ge nerated this result transmit elizabeth reference range : <=37. The reference range was not used to interpr et this result as margaret l/abnormal. [facility] BranchXpwsrarNFQTQWQWPTUB4955-72-97 18:46:00 Test Item Value Reference Range Interpretation Comments Total Protein (test code = Total 6.9 6.4-8.4 Protein) [facility]viewKrhoosdRGKPPIJLWW0741-56-05 18:46:00 Test Item Value Reference Range Interpretation Comments Eosinophils (test code = 4.2 See_Comment [A utomated message] The Eosinophils) system which ge nerated this result tra nsmitted reference range : <=4.0. The reference r mitra was not used to int erpret this result as normal/abnormal . [facility] LongviewUzambsoEHKQRYQRIR3068-32-95 18:46:00 Test Item Value Reference Range Interpretation Comments Segs (test code = Segs) 56.4 45.0-75.0 [facility]viewGvezdkoQYXYHBMUVD7451-04-67 18:46:00 Test Item Value Reference Range Interpretation Comments Monocytes (test code = Monocytes) 10.3 2.0-12.0 [place] [id number] 18:46:00 Test Item Value Reference Range Interpretation Comments Lymphocytes (test code = Lymphocytes) 28.0 20.0-40.0 [facility] LongviewAipcpteWHNZSUYKNE0394-96-86 18:46:00 Test Item Value Reference Range Interpretation Comments Monocytes # (test code 0.5 See_Comment [Aut omated message] The = Monocytes #) system which generated this result tra nsmitted reference range : <=0.8. The reference r mitra was not used to int erpret this result as normal/abnormal . [facility]viewOwnruawVXWXAJLMHX3467-12-03 18:46:00 Test Item Value Reference Range Interpretation Comments Basophils (test code = 1.1 See_Comment [Aut omated message] The Basophils) system which ge nerated this result tra nsmitted reference range : <=1.0. The reference r mitra was not used to int erpret this result as normal/abnormal . [facility]viewFkhnzkjSOTXVYSJUF8769-72-40 18:46:00 Test Item Value Reference Range Interpretation Comments Lymphocytes # (test code = Lymphocytes 1.5 1.0-5.5 #) [facility]viewJccmzhdHAZIVLSCJV8191-58-07 18:46:00 Test Item Value Reference Range Interpretation Comments Segs-Bands # (test code = Segs-Bands #) 2.9 1.5-8.1 [facility]viewCcfiuzyRTXYNQUMMO3552-27-43 18:46:00 Test Item Value Reference Range Interpretation Comments Eosinophils # (test code 0.2 See_Comment [A utomated message] The = Eosinophils #) system whic h generated this result tra nsmitted reference range : <=0.5. The reference r mitra was not used to int erpret this result as normal/abnormal . [facility] LongviewNneukknIYYPEJHCDL7826-80-91 18:46:00 Test Item Value Reference Range Interpretation Comments Basophils # (test code 0.1 See_Comment [Aut omated message] The = Basophils #) system which generated this result tra nsmitted reference range : <=0.2. The reference r mitra was not used to int erpret this result as normal/abnormal . [facility]viewWgsrdjaLJGNYJTPIW2984-78-90 18:46:00 Test Item Value Reference Range Interpretation Comments PT (test code = PT) 11.2 s 12.0-14.7 [place] [id number] 18:46:00 Test Item Value Reference Range Interpretation Comments INR (test code = INR) 0.82 0.85-1.17 [facility]viewVrqduuxISSYGWQVSI0802-91-14 18:46:00 Test Item Value Reference Range Interpretation Comments PTT (test code = PTT) 28.6 s 22.9-35.8 [facility] LongviewDfgpmzuRUZVSJBEZO4930-61-92 18:46:00 Test Item Value Reference Range Interpretation Comments MPV (test code = MPV) 8.1 7.4-10.4 [facility] LongviewHxbdqctNTSKQLVQPL0645-23-31 18:46:00 Test Item Value Reference Range Interpretation Comments Platelet (test code = Platelet) 301 133-450 [facility]viewGgjjwkgLAZWSKMLRQ2806-27-67 18:46:00 Test Item Value Reference Range Interpretation Comments RDW (test code = RDW) 14.5 11.5-14.[address] CenterHwcjdmgTNGJQDOOYJ6752-31-59 18:46:00 Test Item Value Reference Range Interpretation Comments RBC (test code = RBC) 4.84 4.70-6.10 [facility] HospitalCksdqhfQXISMDNXZV8241-40-24 18:46:00 Test Item Value Reference Range Interpretation Comments Hgb (test code = Hgb) 14.4 14.0-18.0 [facility] HospitalAovhrazSIZGZUSUHV4844-30-34 18:46:00 Test Item Value Reference Range Interpretation Comments WBC (test code = WBC) 5.2 3.7-10.4 [facility] HospitalFbpmzauBJVGOGXIKR8031-23-91 18:46:00 Test Item Value Reference Range Interpretation Comments MCH (test code = MCH) 29.8 pg 27.0-31.0 [facility]viewMpphpfuZMPSJKSQLJ7193-75-21 18:46:00 Test Item Value Reference Range Interpretation Comments MCV (test code = MCV) 92.0 80.0-94.0 [facility] HospitalIsmhutaXJNCBSWGGI2461-47-71 18:46:00 Test Item Value Reference Range Interpretation Comments Hct (test code = Hct) 44.5 42.0-54.[address] CenterJwklilcJMMAOOVOJD8451-80-44 18:46:00 Test Item Value Reference Range Interpretation Comments MCHC (test code = MCHC) 32.4 32.0-36.[address] CenterQhmsezxMYMVKRKVWQ0516-41-80 18:46:00 Test Item Value Reference Range Interpretation Comments [place]-Hep C Ab (test Negative *NA*(07/22/14 code = [place]Hep C 1:46 PM) Ab) [facility] AND [id number] 18:46:00 Test Item Value Reference Range Interpretation Comments UA Urobilinogen (test code = UA <=1.0 mg/dL 0.1-1.0 Urobilinogen) [facility] [id number] 18:46:00 Test Item Value Reference Range Interpretation Comments UA Sq Epi (test code = UA Sq Epi) None [facility]en [facility] [id number] 18:46:00 Test Item Value Reference Range Interpretation Comments UA Leuk Est (test Negative (07/22/14 1:46 code = UA Leuk Est) PM) [facility] [id number] 18:46:00 Test Item Value Reference Range Interpretation Comments UA Nitrite (test code Negative (07/22/14 1:46 = UA Nitrite) PM) [facility] AND [id number] 18:46:00 Test Item Value Reference Range Interpretation Comments UA Blood (test code = Negative (07/22/14 1:46 UA Blood) PM) [facility] AND [id number] 18:46:00 Test Item Value Reference Range Interpretation Comments UA Ketones (test code = UA Negative mg/dL Ketones) [facility] AND [id number] 18:46:00 Test Item Value Reference Range Interpretation Comments UA Bili (test code = Negative *NA*(07/22/14 UA Bili) 1:46 PM) [facility] AND [id number] 18:46:00 Test Item Value Reference Range Interpretation Comments UA Bacteria (test code = UA Occasional /HPF Bacteria) [facility] AND [id number] 18:46:00 Test Item Value Reference Range Interpretation Comments UA RBC (test code = no gt See_Comment [Automa elizabeth message] The UA RBC) system which ge nerated this result transmit elizabeth reference range : <=2. The reference range was not used to interpr et this result as margaret l/abnormal. [facility] AND [id number] 18:46:00 Test Item Value Reference Range Interpretation Comments UA WBC (test code = 1 See_Comment [Automa elizabeth message] The UA WBC) system which ge nerated this result transmit elizabeth reference range : <=5. The reference range was not used to interpr et this result as margaret l/abnormal. [facility] AND [id number] 18:46:00 Test Item Value Reference Range Interpretation Comments UA Glucose (test code = UA Glucose) 30 mg/dL [facility] AND [id number] 18:46:00 Test Item Value Reference Range Interpretation Comments UA Protein (test code = UA Negative mg/dL Protein) [facility] AND [id number] 18:46:00 Test Item Value Reference Range Interpretation Comments UA pH (test code = UA pH) 6.5 5.0-8.0 [facility] AND [id number] 18:46:00 Test Item Value Reference Range Interpretation Comments UA Turbidity (test code = Clear (07/22/14 1:46 UA Turbidity) PM) [facility] [id number] 18:46:00 Test Item Value Reference Range Interpretation Comments UA Spec Grav (test code = UA Spec Grav) 1.010 [facility] AND [id number] 18:46:00 Test Item Value Reference Range Interpretation Comments UA Color (test code = Light Yellow UA Color) *NA*(07/22/14 1:46 PM) [facility]CHE[facility] [id number] 18:46:00 Test Item Value Reference Range Interpretation Comments Magnesium Lvl (test code = Magnesium 1.8 1.8-2.4 Lvl) [facility] BranchCpvqtcuVKKMMVTDJNTK6433-00-81 18:46:00 Test Item Value Reference Range Interpretation Comments AGAP (test code = AGAP) 13.2 10.0-20.0 [facility] BranchQlgialoHDNDRRLTYKSL2773-51-80 18:46:00 Test Item Value Reference Range Interpretation Comments B/C Ratio (test code = B/C Ratio) 18 6-25 [facility] BranchGynoeqbKLWZSIRAOJFB7176-51-21 18:46:00 Test Item Value Reference Range Interpretation Comments A/G Ratio (test code = A/G Ratio) 1.1 0.7-1.6 [facility] BranchMdhcgljZMCNKKZSLXYD5724-81-56 18:46:00 Test Item Value Reference Range Interpretation Comments Globulin (test code = Globulin) 3.3 2.0-4.0 [facility] BranchJfqxsocSQAXKKVNWWWP5416-56-42 18:46:00 Test Item Value Reference Range Interpretation Comments eGFR (test code = eGFR) 99 [facility] BranchYklclsdOQAFUCEXGKVI4370-31-51 18:46:00 Test Item Value Reference Range Interpretation Comments Calcium Lvl (test code = Calcium Lvl) 9.0 8.5-10.5 [facility] BranchKbdsdrhWIURTGYMMDKG3839-01-74 18:46:00 Test Item Value Reference Range Interpretation Comments Chloride Lvl (test code = Chloride Lvl) 106 95-109 [facility] BranchEbyqqkdMXAUIVUBRRQS2525-55-20 18:46:00 Test Item Value Reference Range Interpretation Comments Creatinine Lvl (test code = Creatinine 0.9 0.5-1.4 Lvl) [facility] BranchIatatsnWAHJDZQXAXOS0614-06-48 18:46:00 Test Item Value Reference Range Interpretation Comments Potassium Lvl (test code = Potassium 4.2 3.5-5.1 Lvl) [facility] BranchGodjrheCTEYVHOJURUF3375-53-43 18:46:00 Test Item Value Reference Range Interpretation Comments Sodium Lvl (test code = Sodium Lvl) 139 135-145 [facility] BranchTkxxrlhADDPKVCYEPNF5429-55-54 18:46:00 Test Item Value Reference Range Interpretation Comments CO2 (test code = CO2) 24 24-32 [facility] BranchCsijorsHDJXPTCNWSZR2796-89-23 18:46:00 Test Item Value Reference Range Interpretation Comments BUN (test code = BUN) 16 7-22 [facility] BranchBdehptnDRKOVWPOQITB1888-50-21 18:46:00 Test Item Value Reference Range Interpretation Comments Glucose Lvl (test code = Glucose Lvl) 141 70-99 [facility] BranchElfjkryJUETSNSRIHVF8757-92-32 18:46:00 Test Item Value Reference Range Interpretation Comments Albumin Lvl (test code = Albumin Lvl) 3.6 3.5-5.0 [facility] BranchKbqbtprNWGTMBVLBAFE9719-87-56 18:46:00 Test Item Value Reference Range Interpretation Comments Alk Phos (test code = Alk Phos) 65 39-136 [facility] BranchAtahddnUNZPLZJNIVQH8815-29-89 18:46:00 Test Item Value Reference Range Interpretation Comments Bili Total (test code = Bili Total) 0.3 0.2-1.3 [facility] BranchGovbwuvVHOGYFZFTYWM6994-63-54 18:46:00 Test Item Value Reference Range Interpretation Comments ALT (test code = ALT) 100 See_Comment [Auto mated message] The system which ge nerated this result transmit elizabeth reference range : <=65. The reference range was not used to interpr et this result as margaret l/abnormal. [facility] BranchDffenhiANHXRUWVEKUO8864-04-14 18:46:00 Test Item Value Reference Range Interpretation Comments AST (test code = AST) 53 See_Comment [Auto mated message] The system which ge nerated this result transmit elizabeth reference range : <=37. The reference range was not used to interpr et this result as margaret l/abnormal. [facility] BranchExfwiixWKSVNQFRFCVC3720-54-40 18:46:00 Test Item Value Reference Range Interpretation Comments Total Protein (test code = Total 6.9 6.4-8.4 Protein) [facility]viewLgedupkKLUVVMWLUW5081-35-74 18:46:00 Test Item Value Reference Range Interpretation Comments Eosinophils (test code = 4.2 See_Comment [A utomated message] The Eosinophils) system which ge nerated this result tra nsmitted reference range : <=4.0. The reference r mitra was not used to int erpret this result as normal/abnormal . [facility] LongviewTtettqoLAOJGJHKUA3492-05-23 18:46:00 Test Item Value Reference Range Interpretation Comments Segs (test code = Segs) 56.4 45.0-75.0 [facility] LongviewMrkyaccSJEFTTSCOH0387-93-35 18:46:00 Test Item Value Reference Range Interpretation Comments Monocytes (test code = Monocytes) 10.3 2.0-12.0 [facility] LongviewEsysajgWREFKQNPYV1228-50-71 18:46:00 Test Item Value Reference Range Interpretation Comments Lymphocytes (test code = Lymphocytes) 28.0 20.0-40.0 [facility]viewEeclujlHNHFMTSUBK4286-81-91 18:46:00 Test Item Value Reference Range Interpretation Comments Monocytes # (test code 0.5 See_Comment [Aut omated message] The = Monocytes #) system which generated this result tra nsmitted reference range : <=0.8. The reference r mitra was not used to int erpret this result as normal/abnormal . [facility] LongviewMbzlbheZZKUBQSEBR7776-71-96 18:46:00 Test Item Value Reference Range Interpretation Comments Basophils (test code = 1.1 See_Comment [Aut omated message] The Basophils) system which ge nerated this result tra nsmitted reference range : <=1.0. The reference r mitra was not used to int erpret this result as normal/abnormal . [facility] LongviewIqjyociXTCVQWQVXH4225-78-08 18:46:00 Test Item Value Reference Range Interpretation Comments Lymphocytes # (test code = Lymphocytes 1.5 1.0-5.5 #) [facility] LongviewSkxcljsJCPEDFGCUT4511-21-88 18:46:00 Test Item Value Reference Range Interpretation Comments Segs-Bands # (test code = Segs-Bands #) 2.9 1.5-8.1 [facility] LongviewPablyytFPGPDVGAEV7947-78-42 18:46:00 Test Item Value Reference Range Interpretation Comments Eosinophils # (test code 0.2 See_Comment [A utomated message] The = Eosinophils #) system whic h generated this result tra nsmitted reference range : <=0.5. The reference r mitra was not used to int erpret this result as normal/abnormal . [facility] LongviewYuuqfuiQXWATRXLRJ7216-13-97 18:46:00 Test Item Value Reference Range Interpretation Comments Basophils # (test code 0.1 See_Comment [Aut omated message] The = Basophils #) system which generated this result tra nsmitted reference range : <=0.2. The reference r mitra was not used to int erpret this result as normal/abnormal . [facility] LongviewNevogabSPYSXFZDJJ8817-32-91 18:46:00 Test Item Value Reference Range Interpretation Comments PT (test code = PT) 11.2 s 12.0-14.7 [facility] LongviewOmbjrfrEHVEAKJRRW0877-71-67 18:46:00 Test Item Value Reference Range Interpretation Comments INR (test code = INR) 0.82 0.85-1.17 [facility] LongviewQekkbspBBIKFKHHCA2119-86-93 18:46:00 Test Item Value Reference Range Interpretation Comments PTT (test code = PTT) 28.6 s 22.9-35.8 [facility] LongviewDizpnlwWLNEJRDRTL3829-66-23 18:46:00 Test Item Value Reference Range Interpretation Comments MPV (test code = MPV) 8.1 7.4-10.4 [facility] LongviewXaubnrfIVOMEXVBDL3243-20-11 18:46:00 Test Item Value Reference Range Interpretation Comments Platelet (test code = Platelet) 301 133-450 [facility] LongviewClixxgzILUHUFYGMW7082-66-73 18:46:00 Test Item Value Reference Range Interpretation Comments RDW (test code = RDW) 14.5 11.5-14.5 [facility] LongviewRsoahhfDFUOLNTIKE9882-54-65 18:46:00 Test Item Value Reference Range Interpretation Comments RBC (test code = RBC) 4.84 4.70-6.10 [facility] LongviewCztowgvSMNKCVOSHL7283-75-91 18:46:00 Test Item Value Reference Range Interpretation Comments Hgb (test code = Hgb) 14.4 14.0-18.0 [facility] LongviewQxwcbvrOHDHQZUISE9271-75-02 18:46:00 Test Item Value Reference Range Interpretation Comments WBC (test code = WBC) 5.2 3.7-10.4 [facility] [id number] 18:46:00 Test Item Value Reference Range Interpretation Comments MCH (test code = MCH) 29.8 pg 27.0-31.[address] [facility] CenterWqwiuyqYAGWMGQBPS9089-84-11 18:46:00 Test Item Value Reference Range Interpretation Comments MCV (test code = MCV) 92.0 80.0-94.[address] [facility] CenterWjoogiyOTITXAYIBW5764-27-05 18:46:00 Test Item Value Reference Range Interpretation Comments Hct (test code = Hct) 44.5 42.0-54.[address] [facility] CenterZcutcgjCBHIYJYKDP9846-34-61 18:46:00 Test Item Value Reference Range Interpretation Comments MCHC (test code = MCHC) 32.4 32.0-36.[address] [facility] CenterElybshzTCYEMVFZFE1829-79-29 18:46:00 Test Item Value Reference Range Interpretation Comments [place]-Hep C Ab (test Negative *NA*(07/22/14 code = [place]-Hep C 1:46 PM) Ab) [facility] AND [id number] 18:46:00 Test Item Value Reference Range Interpretation Comments UA Urobilinogen (test code = UA <=1.0 mg/dL 0.1-1.0 Urobilinogen) [facility] AND [id number] 18:46:00 Test Item Value Reference Range Interpretation Comments UA Sq Epi (test code = UA Sq Epi) None Seen [facility] AND [id number] 18:46:00 Test Item Value Reference Range Interpretation Comments UA Leuk Est (test Negative (07/22/14 1:46 code = UA Leuk Est) PM) [facility] AND [id number] 18:46:00 Test Item Value Reference Range Interpretation Comments UA Nitrite (test code Negative (07/22/14 1:46 = UA Nitrite) PM) [facility] AND [id number] 18:46:00 Test Item Value Reference Range Interpretation Comments UA Blood (test code = Negative (07/22/14 1:46 UA Blood) PM) [facility] AND [id number] 18:46:00 Test Item Value Reference Range Interpretation Comments UA Ketones (test code = UA Negative mg/dL Ketones) [facility] AND [id number] 18:46:00 Test Item Value Reference Range Interpretation Comments UA Bili (test code = Negative *NA*(07/22/14 UA Bili) 1:46 PM) [facility] AND [id number] 18:46:00 Test Item Value Reference Range Interpretation Comments UA Bacteria (test code = UA Occasional /HPF Bacteria) [facility] AND [id number] 18:46:00 Test Item Value Reference Range Interpretation Comments UA RBC (test code = no gt See_Comment [Automa elizabeth message] The UA RBC) system which ge nerated this result transmit elizabeth reference range : <=2. The reference range was not used to interpr et this result as margaret l/abnormal. [facility] AND [id number] 18:46:00 Test Item Value Reference Range Interpretation Comments UA WBC (test code = 1 See_Comment [Automa elizabeth message] The UA WBC) system which ge nerated this result transmit elizabeth reference range : <=5. The reference range was not used to interpr et this result as margaret l/abnormal. [facility] AND [id number] 18:46:00 Test Item Value Reference Range Interpretation Comments UA Glucose (test code = UA Glucose) 30 mg/dL [facility] AND [id number] 18:46:00 Test Item Value Reference Range Interpretation Comments UA Protein (test code = UA Negative mg/dL Protein) [facility] AND [id number] 18:46:00 Test Item Value Reference Range Interpretation Comments UA pH (test code = UA pH) 6.5 5.0-8.0 [facility] AND [id number] 18:46:00 Test Item Value Reference Range Interpretation Comments UA Turbidity (test code = Clear (07/22/14 1:46 UA Turbidity) PM) [facility] AND [id number] 18:46:00 Test Item Value Reference Range Interpretation Comments UA Spec Grav (test code = UA Spec Grav) 1.010 [facility] AND [id number] 18:46:00 Test Item Value Reference Range Interpretation Comments UA Color (test code = Light Yellow UA Color) *NA*(07/22/14 1:46 PM) [facility] [id number] 18:46:00 Test Item Value Reference Range Interpretation Comments Magnesium Lvl (test code = Magnesium 1.8 1.8-2.4 Lvl) [facility] BranchLazpyosMCLIHFTVYDON9680-81-25 18:46:00 Test Item Value Reference Range Interpretation Comments AGAP (test code = AGAP) 13.2 10.0-20.0 [facility] Branch[id number] 18:46:00 Test Item Value Reference Range Interpretation Comments B/C Ratio (test code = B/C Ratio) 18 6-25 [facility] BranchWtqeahmLGIBWTXXLOSR6909-54-73 18:46:00 Test Item Value Reference Range Interpretation Comments A/G Ratio (test code = A/G Ratio) 1.1 0.7-1.6 [facility] BranchHmxzxseKXNLRJNUQZIH4504-56-49 18:46:00 Test Item Value Reference Range Interpretation Comments Globulin (test code = Globulin) 3.3 2.0-4.0 [facility] BranchTdcpsxuJWRREQJFZPJL1831-11-27 18:46:00 Test Item Value Reference Range Interpretation Comments eGFR (test code = eGFR) 99 [facility] BranchCxirxpqBEGRCXKLYZVA0104-67-18 18:46:00 Test Item Value Reference Range Interpretation Comments Calcium Lvl (test code = Calcium Lvl) 9.0 8.5-10.5 [facility] BranchIffnqguEHYPDRDQMRBB9797-57-82 18:46:00 Test Item Value Reference Range Interpretation Comments Chloride Lvl (test code = Chloride Lvl) 106 95-109 [facility] BranchQqzbypaHRPNLGHMCTBW6535-69-36 18:46:00 Test Item Value Reference Range Interpretation Comments Creatinine Lvl (test code = Creatinine 0.9 0.5-1.4 Lvl) [facility] BranchYyynotyVIBCCNZTOIDW1401-36-27 18:46:00 Test Item Value Reference Range Interpretation Comments Potassium Lvl (test code = Potassium 4.2 3.5-5.1 Lvl) [facility] BranchWpxbufeCMOPWFOZPCUF6017-60-67 18:46:00 Test Item Value Reference Range Interpretation Comments Sodium Lvl (test code = Sodium Lvl) 139 135-145 [facility] BranchNlxjwqjTCPOFJYFYIDH3987-89-21 18:46:00 Test Item Value Reference Range Interpretation Comments CO2 (test code = CO2) 24 24-32 [facility] BranchJhubysqPOSIMHRQMVCO8499-87-57 18:46:00 Test Item Value Reference Range Interpretation Comments BUN (test code = BUN) 16 7-22 [facility] BranchHnxfvxrBIWYDLTVBAIQ0780-36-10 18:46:00 Test Item Value Reference Range Interpretation Comments Glucose Lvl (test code = Glucose Lvl) 141 70-99 [facility] BranchYwtnptrNURLNSNRTXHD0273-68-22 18:46:00 Test Item Value Reference Range Interpretation Comments Albumin Lvl (test code = Albumin Lvl) 3.6 3.5-5.0 [facility] Branch[id number] 18:46:00 Test Item Value Reference Range Interpretation Comments Alk Phos (test code = Alk Phos) 65 39-136 [facility] BranchYsotuacXGMILZVIJDLR9007-07-60 18:46:00 Test Item Value Reference Range Interpretation Comments Bili Total (test code = Bili Total) 0.3 0.2-1.3 [facility] BranchFlsbtyzGFKHYJHWYQCK3825-16-57 18:46:00 Test Item Value Reference Range Interpretation Comments ALT (test code = ALT) 100 See_Comment [Auto mated message] The system which ge nerated this result transmit elizabeth reference range : <=65. The reference range was not used to interpr et this result as margarte l/abnormal. [facility] BranchYjpvshvMGORSRKDXVYI0778-26-34 18:46:00 Test Item Value Reference Range Interpretation Comments AST (test code = AST) 53 See_Comment [Auto mated message] The system which ge nerated this result transmit elizabeth reference range : <=37. The reference range was not used to interpr et this result as margaret l/abnormal. [facility] BranchPjhvkvlMXMHTLUWNVRS6140-64-70 18:46:00 Test Item Value Reference Range Interpretation Comments Total Protein (test code = Total 6.9 6.4-8.4 Protein) [facility]TighnhhUGCUQLAQAP5294-17-78 18:46:00 Test Item Value Reference Range Interpretation Comments Eosinophils (test code = 4.2 See_Comment [A utomated message] The Eosinophils) system which ge nerated this result tra nsmitted reference range : <=4.0. The reference r mitra was not used to int erpret this result as normal/abnormal . [facility]viewEobffljCTCEFOYUJA4363-87-62 18:46:00 Test Item Value Reference Range Interpretation Comments Segs (test code = Segs) 56.4 45.0-75.0 [facility]viewQagqrqrPNWHBAFJQF1967-59-70 18:46:00 Test Item Value Reference Range Interpretation Comments Monocytes (test code = Monocytes) 10.3 2.0-12.0 [facility]viewKlahpstISREDVCKYZ5103-05-47 18:46:00 Test Item Value Reference Range Interpretation Comments Lymphocytes (test code = Lymphocytes) 28.0 20.0-40.0 [facility]viewMsbcepiIZJLCZJFTP1089-62-15 18:46:00 Test Item Value Reference Range Interpretation Comments Monocytes # (test code 0.5 See_Comment [Aut omated message] The = Monocytes #) system which generated this result tra nsmitted reference range : <=0.8. The reference r mitra was not used to int erpret this result as normal/abnormal . [facility]viewQqlfsxbAGRPRBXGHO1518-31-35 18:46:00 Test Item Value Reference Range Interpretation Comments Basophils (test code = 1.1 See_Comment [Aut omated message] The Basophils) system which ge nerated this result tra nsmitted reference range : <=1.0. The reference r mitra was not used to int erpret this result as normal/abnormal . [facility]viewHhfcxgdSSKQOSLJCN8491-80-39 18:46:00 Test Item Value Reference Range Interpretation Comments Lymphocytes # (test code = Lymphocytes 1.5 1.0-5.5 #) [facility]viewGyggqodHDNBWMLIEP9692-66-77 18:46:00 Test Item Value Reference Range Interpretation Comments Segs-Bands # (test code = Segs-Bands #) 2.9 1.5-8.1 [facility]viewRokpsniAEYLJFTGWX6052-45-30 18:46:00 Test Item Value Reference Range Interpretation Comments Eosinophils # (test code 0.2 See_Comment [A utomated message] The = Eosinophils #) system whic h generated this result tra nsmitted reference range : <=0.5. The reference r mitra was not used to int erpret this result as normal/abnormal . [facility]viewCbwwhjyKSOTCTHAFN9253-86-11 18:46:00 Test Item Value Reference Range Interpretation Comments Basophils # (test code 0.1 See_Comment [Aut omated message] The = Basophils #) system which generated this result tra nsmitted reference range : <=0.2. The reference r mitra was not used to int erpret this result as normal/abnormal . [facility]viewYxihgbwPOXIALXZMG5968-85-97 18:46:00 Test Item Value Reference Range Interpretation Comments PT (test code = PT) 11.2 s 12.0-14.7 [facility]viewTlfoigaCZVOMULNZB9256-99-02 18:46:00 Test Item Value Reference Range Interpretation Comments INR (test code = INR) 0.82 0.85-1.17 [facility]vi[id number] 18:46:00 Test Item Value Reference Range Interpretation Comments PTT (test code = PTT) 28.6 s 22.9-35.8 [facility]viewHzfpjjwGZQYKUWDGQ2144-74-30 18:46:00 Test Item Value Reference Range Interpretation Comments MPV (test code = MPV) 8.1 7.4-10.4 [facility]viewEpmxmnmHJVIMWWMMT9189-39-43 18:46:00 Test Item Value Reference Range Interpretation Comments Platelet (test code = Platelet) 301 133-450 [facility]viewEmvtkkyUORDABBXEH3149-68-83 18:46:00 Test Item Value Reference Range Interpretation Comments RDW (test code = RDW) 14.5 11.5-14.5 [facility]viewMujvvdeYCWMSZCORD9572-64-63 18:46:00 Test Item Value Reference Range Interpretation Comments RBC (test code = RBC) 4.84 4.70-6.10 [facility]viewAvtnpmqLIAXCQWLMR9600-44-30 18:46:00 Test Item Value Reference Range Interpretation Comments Hgb (test code = Hgb) 14.4 14.0-18.0 [facility]viewOwaevzrPOBYHNWQMC6965-26-71 18:46:00 Test Item Value Reference Range Interpretation Comments WBC (test code = WBC) 5.2 3.7-10.4 [facility]viewFddkoobDDSJNGFWEB1845-11-34 18:46:00 Test Item Value Reference Range Interpretation Comments MCH (test code = MCH) 29.8 pg 27.0-31.0 [facility]viewFqmixktEZRKVWARXY1905-36-52 18:46:00 Test Item Value Reference Range Interpretation Comments MCV (test code = MCV) 92.0 80.0-94.0 [facility]viewVpquddzLTRVKMDOGQ4892-83-85 18:46:00 Test Item Value Reference Range Interpretation Comments Hct (test code = Hct) 44.5 42.0-54.0 [facility]viewCejogpuUDEALAKMNE8930-47-79 18:46:00 Test Item Value Reference Range Interpretation Comments MCHC (test code = MCHC) 32.4 32.0-36.0 [facility]ajuRAJNSPGBYH2593-95-41 18:46:00 Test Item Value Reference Range Interpretation Comments [place]-Hep C Ab (test Negative *NA*(07/22/14 code = [place]-Hep C 1:46 PM) Ab) [facility] AND [id number] 18:46:00 Test Item Value Reference Range Interpretation Comments UA Urobilinogen (test code = UA <=1.0 mg/dL 0.1-1.0 Urobilinogen) [facility] AND [id number] 18:46:00 Test Item Value Reference Range Interpretation Comments UA Sq Epi (test code = UA Sq Epi) None Seen [facility] AND [id number] 18:46:00 Test Item Value Reference Range Interpretation Comments UA Leuk Est (test Negative (07/22/14 1:46 code = UA Leuk Est) PM) [facility] AND [id number] 18:46:00 Test Item Value Reference Range Interpretation Comments UA Nitrite (test code Negative (07/22/14 1:46 = UA Nitrite) PM) [facility] AND [id number] 18:46:00 Test Item Value Reference Range Interpretation Comments UA Blood (test code = Negative (07/22/14 1:46 UA Blood) PM) [facility] AND [id number] 18:46:00 Test Item Value Reference Range Interpretation Comments UA Ketones (test code = UA Negative mg/dL Ketones) [facility] AND [id number] 18:46:00 Test Item Value Reference Range Interpretation Comments UA Bili (test code = Negative *NA*(07/22/14 UA Bili) 1:46 PM) [facility] AND [id number] 18:46:00 Test Item Value Reference Range Interpretation Comments UA Bacteria (test code = UA Occasional /HPF Bacteria) [facility] AND [id number] 18:46:00 Test Item Value Reference Range Interpretation Comments UA RBC (test code = no gt See_Comment [Automa elizabeth message] The UA RBC) system which ge nerated this result transmit elizabeth reference range : <=2. The reference range was not used to interpr et this result as margaret l/abnormal. [facility] AND [id number] 18:46:00 Test Item Value Reference Range Interpretation Comments UA WBC (test code = 1 See_Comment [Automa elizabeth message] The UA WBC) system which ge nerated this result transmit elizabeth reference range : <=5. The reference range was not used to interpr et this result as margaret l/abnormal. [facility] AND [id number] 18:46:00 Test Item Value Reference Range Interpretation Comments UA Glucose (test code = UA Glucose) 30 mg/dL [facility] AND [id number] 18:46:00 Test Item Value Reference Range Interpretation Comments UA Protein (test code = UA Negative mg/dL Protein) [facility] AND [id number] 18:46:00 Test Item Value Reference Range Interpretation Comments UA pH (test code = UA pH) 6.5 5.0-8.0 [facility] AND [id number] 18:46:00 Test Item Value Reference Range Interpretation Comments UA Turbidity (test code = Clear (07/22/14 1:46 UA Turbidity) PM) [facility] AND [id number] 18:46:00 Test Item Value Reference Range Interpretation Comments UA Spec Grav (test code = UA Spec Grav) 1.010 [facility] AND [id number] 18:46:00 Test Item Value Reference Range Interpretation Comments UA Color (test code = Light Yellow UA Color) *NA*(07/22/14 1:46 PM) [facility] [id number] 18:46:00 Test Item Value Reference Range Interpretation Comments Magnesium Lvl (test code = Magnesium 1.8 1.8-2.4 Lvl) [facility]YoyrnfsMRSPZTWKGRJC6464-76-75 18:46:00 Test Item Value Reference Range Interpretation Comments AGAP (test code = AGAP) 13.2 10.0-20.0 [facility] BranchYokhflzYAFAUDYNSCCW3852-84-02 18:46:00 Test Item Value Reference Range Interpretation Comments B/C Ratio (test code = B/C Ratio) 18 6-25 [facility] BranchXwjcbyuDFFENSVMROHX2624-07-57 18:46:00 Test Item Value Reference Range Interpretation Comments A/G Ratio (test code = A/G Ratio) 1.1 0.7-1.6 [facility] BranchKcrokjiTUWFEFDHRLDW0948-17-06 18:46:00 Test Item Value Reference Range Interpretation Comments Globulin (test code = Globulin) 3.3 2.0-4.0 [facility] BranchSnstyleKMDZMCRPCIFX8060-72-69 18:46:00 Test Item Value Reference Range Interpretation Comments eGFR (test code = eGFR) 99 [facility] BranchMghphrpERHZOFPULBIS4694-69-92 18:46:00 Test Item Value Reference Range Interpretation Comments Calcium Lvl (test code = Calcium Lvl) 9.0 8.5-10.5 [facility] BranchIeweffwTVVWZYDNJSYF2629-95-84 18:46:00 Test Item Value Reference Range Interpretation Comments Chloride Lvl (test code = Chloride Lvl) 106 95-109 [facility] BranchQcjlrffZVKAEZYZBVFY5972-93-30 18:46:00 Test Item Value Reference Range Interpretation Comments Creatinine Lvl (test code = Creatinine 0.9 0.5-1.4 Lvl) [facility] BranchMxnvikoSQXBKXRKBHUZ4916-80-97 18:46:00 Test Item Value Reference Range Interpretation Comments Potassium Lvl (test code = Potassium 4.2 3.5-5.1 Lvl) [facility] BranchTgdtcykLQKWYNYYMRMA1669-98-80 18:46:00 Test Item Value Reference Range Interpretation Comments Sodium Lvl (test code = Sodium Lvl) 139 135-145 [facility] BranchFhbcdtmGIDOTGJSMZAI6032-70-93 18:46:00 Test Item Value Reference Range Interpretation Comments CO2 (test code = CO2) 24 24-32 [facility] BranchZbsllqpYCZMDOHXVRJI4159-01-65 18:46:00 Test Item Value Reference Range Interpretation Comments BUN (test code = BUN) 16 7-22 [facility] BranchMkkirqnBWYFGNFWKGXI5229-18-45 18:46:00 Test Item Value Reference Range Interpretation Comments Glucose Lvl (test code = Glucose Lvl) 141 70-99 [facility] BranchLkgoohzKTPOJTLKNBLR6367-15-31 18:46:00 Test Item Value Reference Range Interpretation Comments Albumin Lvl (test code = Albumin Lvl) 3.6 3.5-5.0 [facility] BranchUdckjkaHLDAFNLKAKMP5853-68-65 18:46:00 Test Item Value Reference Range Interpretation Comments Alk Phos (test code = Alk Phos) 65 39-136 [facility] BranchGmvgvfdNKWMNDOLFOGD7588-46-53 18:46:00 Test Item Value Reference Range Interpretation Comments Bili Total (test code = Bili Total) 0.3 0.2-1.3 [facility] BranchFbzhrfaCNLURSCAJYNC5294-76-71 18:46:00 Test Item Value Reference Range Interpretation Comments ALT (test code = ALT) 100 See_Comment [Auto mated message] The system which ge nerated this result transmit elizabeth reference range : <=65. The reference range was not used to interpr et this result as margaret l/abnormal. [facility] BranchRyymzydIMOSYMDSOMJT6508-14-81 18:46:00 Test Item Value Reference Range Interpretation Comments AST (test code = AST) 53 See_Comment [Auto mated message] The system which ge nerated this result transmit elizabeth reference range : <=37. The reference range was not used to interpr et this result as margaret l/abnormal. [facility] BranchYhgmvesOJUGBIAEFLAF2072-79-53 18:46:00 Test Item Value Reference Range Interpretation Comments Total Protein (test code = Total 6.9 6.4-8.4 Protein) [facility]viewIgvqthjUAQYPUDUXB8708-95-53 18:46:00 Test Item Value Reference Range Interpretation Comments Eosinophils (test code = 4.2 See_Comment [A utomated message] The Eosinophils) system which ge nerated this result tra nsmitted reference range : <=4.0. The reference r mitra was not used to int erpret this result as normal/abnormal . [facility]viewXapmiyqECXKAXJDBG3246-42-23 18:46:00 Test Item Value Reference Range Interpretation Comments Segs (test code = Segs) 56.4 45.0-75.0 [facility]viewAurxiksNHUFYIBGZN7940-43-91 18:46:00 Test Item Value Reference Range Interpretation Comments Monocytes (test code = Monocytes) 10.3 2.0-12.0 [facility]viewVdmvlnxNEFMTXOWJM0763-25-07 18:46:00 Test Item Value Reference Range Interpretation Comments Lymphocytes (test code = Lymphocytes) 28.0 20.0-40.0 [facility]viewJhbhznwNLBDSMCQDE0097-22-55 18:46:00 Test Item Value Reference Range Interpretation Comments Monocytes # (test code 0.5 See_Comment [Aut omated message] The = Monocytes #) system which generated this result tra nsmitted reference range : <=0.8. The reference r mitra was not used to int erpret this result as normal/abnormal . [facility]viewJmirvnhYIVYJUYAKQ8457-48-19 18:46:00 Test Item Value Reference Range Interpretation Comments Basophils (test code = 1.1 See_Comment [Aut omated message] The Basophils) system which ge nerated this result tra nsmitted reference range : <=1.0. The reference r mitra was not used to int erpret this result as normal/abnormal . [facility]viewUuctdgrIGYMUGBHMG2900-31-36 18:46:00 Test Item Value Reference Range Interpretation Comments Lymphocytes # (test code = Lymphocytes 1.5 1.0-5.5 #) [facility]viewWcpwprjXBQCKTRLOV0146-66-26 18:46:00 Test Item Value Reference Range Interpretation Comments Segs-Bands # (test code = Segs-Bands #) 2.9 1.5-8.1 [facility]viewIfonbvoQUEHKDQYWH5251-87-40 18:46:00 Test Item Value Reference Range Interpretation Comments Eosinophils # (test code 0.2 See_Comment [A utomated message] The = Eosinophils #) system [facility] h generated this result tra nsmitted reference range : <=0.5. The reference r mitra was not used to int erpret this result as normal/abnormal . [facility]viewWpkzhwuHOUJPPMOCQ3611-36-49 18:46:00 Test Item Value Reference Range Interpretation Comments Basophils # (test code 0.1 See_Comment [Aut omated message] The = Basophils #) system which generated this result tra nsmitted reference range : <=0.2. The reference r mitra was not used to int erpret this result as normal/abnormal . [facility]viewVhvctqxLCTUMTPYDU8295-93-66 18:46:00 Test Item Value Reference Range Interpretation Comments PT (test code = PT) 11.2 s 12.0-14.7 [facility]viewOsfyqrgHMOUWQTNXE9651-97-33 18:46:00 Test Item Value Reference Range Interpretation Comments INR (test code = INR) 0.82 0.85-1.17 [facility]viewHkclxxvNCIBIHECIA6515-48-45 18:46:00 Test Item Value Reference Range Interpretation Comments PTT (test code = PTT) 28.6 s 22.9-35.8 [facility]viewPdewrdnRXZERXNJKL0876-73-54 18:46:00 Test Item Value Reference Range Interpretation Comments MPV (test code = MPV) 8.1 7.4-10.4 [facility]viewSvljikxRHGUXBHPQG8108-18-48 18:46:00 Test Item Value Reference Range Interpretation Comments Platelet (test code = Platelet) 301 133-450 [facility]viewMusalxiIRHVPASVUB4765-21-04 18:46:00 Test Item Value Reference Range Interpretation Comments RDW (test code = RDW) 14.5 11.5-14.5 [facility]viewRndfozhLUGFRJWPHD1734-15-54 18:46:00 Test Item Value Reference Range Interpretation Comments RBC (test code = RBC) 4.84 4.70-6.10 [facility]KvwccbcECXVYFQFYC4352-22-98 18:46:00 Test Item Value Reference Range Interpretation Comments Hgb (test code = Hgb) 14.4 14.0-18.0 [facility]viewTpluvutDOTHDFVPHB1579-27-70 18:46:00 Test Item Value Reference Range Interpretation Comments WBC (test code = WBC) 5.2 3.7-10.4 [facility]viewOehxoyxASZYYAPYCR8609-80-85 18:46:00 Test Item Value Reference Range Interpretation Comments MCH (test code = MCH) 29.8 pg 27.0-31.0 [facility]viewAnxjdfvHGTHILOVSB4885-58-21 18:46:00 Test Item Value Reference Range Interpretation Comments MCV (test code = MCV) 92.0 80.0-94.0 [facility]viewPmfggpeDVPBWXCDFH3185-21-87 18:46:00 Test Item Value Reference Range Interpretation Comments Hct (test code = Hct) 44.5 42.0-54.0 [facility]viewWoytcqrXBOXARRLCR5910-45-64 18:46:00 Test Item Value Reference Range Interpretation Comments MCHC (test code = MCHC) 32.4 32.0-36.[address] [facility] CenterMxkowhuELXHRJCXZA3914-36-12 18:46:00 Test Item Value Reference Range Interpretation Comments [place]-Hep C Ab (test Negative *NA*(07/22/14 code = [place]-Hep C 1:46 PM) Ab) [facility] AND [id number] 18:46:00 Test Item Value Reference Range Interpretation Comments UA Urobilinogen (test code = UA <=1.0 mg/dL 0.1-1.0 Urobilinogen) [facility] AND [id number] 18:46:00 Test Item Value Reference Range Interpretation Comments UA Sq Epi (test code = UA Sq Epi) None Seen [facility] AND [id number] 18:46:00 Test Item Value Reference Range Interpretation Comments UA Leuk Est (test Negative (07/22/14 1:46 code = UA Leuk Est) PM) [facility] AND [id number] 18:46:00 Test Item Value Reference Range Interpretation Comments UA Nitrite (test code Negative (07/22/14 1:46 = UA Nitrite) PM) [facility] AND [id number] 18:46:00 Test Item Value Reference Range Interpretation Comments UA Blood (test code = Negative (07/22/14 1:46 UA Blood) PM) [facility] AND [id number] 18:46:00 Test Item Value Reference Range Interpretation Comments UA Ketones (test code = UA Negative mg/dL Ketones) [facility] AND [id number] 18:46:00 Test Item Value Reference Range Interpretation Comments UA Bili (test code = Negative *NA*(07/22/14 UA Bili) 1:46 PM) [facility] AND [id number] 18:46:00 Test Item Value Reference Range Interpretation Comments UA Bacteria (test code = UA Occasional /HPF Bacteria) [facility] AND [id number] 18:46:00 Test Item Value Reference Range Interpretation Comments UA RBC (test code = no gt See_Comment [Automa elizabeth message] The UA RBC) system which ge nerated this result transmit elizabeth reference range : <=2. The reference range was not used to interpr et this result as margaret l/abnormal. [facility] AND [id number] 18:46:00 Test Item Value Reference Range Interpretation Comments UA WBC (test code = 1 See_Comment [Automa elizabeth message] The UA WBC) system which ge nerated this result transmit elizabeth reference range : <=5. The reference range was not used to interpr et this result as margaret l/abnormal. [facility] AND [id number] 18:46:00 Test Item Value Reference Range Interpretation Comments UA Glucose (test code = UA Glucose) 30 mg/dL [facility] AND [id number] 18:46:00 Test Item Value Reference Range Interpretation Comments UA Protein (test code = UA Negative mg/dL Protein) [facility] AND [id number] 18:46:00 Test Item Value Reference Range Interpretation Comments UA pH (test code = UA pH) 6.5 5.0-8.0 [facility] AND [id number] 18:46:00 Test Item Value Reference Range Interpretation Comments UA Turbidity (test code = Clear (07/22/14 1:46 UA Turbidity) PM) [facility] AND [id number] 18:46:00 Test Item Value Reference Range Interpretation Comments UA Spec Grav (test code = UA Spec Grav) 1.010 [facility] AND [id number] 18:46:00 Test Item Value Reference Range Interpretation Comments UA Color (test code = Light Yellow UA Color) *NA*(07/22/14 1:46 PM) [facility] [id number] 18:46:00 Test Item Value Reference Range Interpretation Comments Magnesium Lvl (test code = Magnesium 1.8 1.8-2.4 Lvl) [facility]JwmymvcNVIUOUFVLTJO7225-64-54 18:46:00 Test Item Value Reference Range Interpretation Comments AGAP (test code = AGAP) 13.2 10.0-20.0 [facility] BranchYbrcxpvEWSJLNIXNIXM5405-06-20 18:46:00 Test Item Value Reference Range Interpretation Comments B/C Ratio (test code = B/C Ratio) 18 6-25 [facility] BranchQvwwwikEXVBJZGGXCFK3204-14-63 18:46:00 Test Item Value Reference Range Interpretation Comments A/G Ratio (test code = A/G Ratio) 1.1 0.7-1.6 [facility] BranchRbwtcotWNSQKDJDYJRR7973-02-78 18:46:00 Test Item Value Reference Range Interpretation Comments Globulin (test code = Globulin) 3.3 2.0-4.0 [facility] BranchPwmjwtdMWMNCOZNQPZC0991-14-77 18:46:00 Test Item Value Reference Range Interpretation Comments eGFR (test code = eGFR) 99 [facility] BranchAmviilfVTXTNWKOOVAY7755-60-02 18:46:00 Test Item Value Reference Range Interpretation Comments Calcium Lvl (test code = Calcium Lvl) 9.0 8.5-10.5 [facility] BranchQnwxcrcEIRQYZYKIQUM0231-67-52 18:46:00 Test Item Value Reference Range Interpretation Comments Chloride Lvl (test code = Chloride Lvl) 106 95-109 [facility] BranchDlghlcyIVQUXSNNRQEX6037-91-83 18:46:00 Test Item Value Reference Range Interpretation Comments Creatinine Lvl (test code = Creatinine 0.9 0.5-1.4 Lvl) [facility] BranchLeyacggMXLKLPLAYFGT5461-36-01 18:46:00 Test Item Value Reference Range Interpretation Comments Potassium Lvl (test code = Potassium 4.2 3.5-5.1 Lvl) [facility] BranchAhhnsooXDQDMYSIFWCX6018-47-52 18:46:00 Test Item Value Reference Range Interpretation Comments Sodium Lvl (test code = Sodium Lvl) 139 135-145 [facility] BranchOzvwyeeMMXQDMHTDTWZ1400-72-88 18:46:00 Test Item Value Reference Range Interpretation Comments CO2 (test code = CO2) 24 24-32 [facility] BranchGxdetsfZZMULSYKTELM4990-84-37 18:46:00 Test Item Value Reference Range Interpretation Comments BUN (test code = BUN) 16 7-22 [facility] BranchTedlimlURTXQNLLCCSW5092-75-64 18:46:00 Test Item Value Reference Range Interpretation Comments Glucose Lvl (test code = Glucose Lvl) 141 70-99 [facility] BranchLawuwwtRFLOOAFYPKRF3645-57-35 18:46:00 Test Item Value Reference Range Interpretation Comments Albumin Lvl (test code = Albumin Lvl) 3.6 3.5-5.0 [facility] BranchFrlwhfaDSGGOVAFNGBS1852-32-39 18:46:00 Test Item Value Reference Range Interpretation Comments Alk Phos (test code = Alk Phos) 65 39-136 [facility] BranchKmhkiofNZSOVOVADYKT8863-71-02 18:46:00 Test Item Value Reference Range Interpretation Comments Bili Total (test code = Bili Total) 0.3 0.2-1.3 [facility] BranchCasohxgBUNCXURLJDRO3336-56-13 18:46:00 Test Item Value Reference Range Interpretation Comments ALT (test code = ALT) 100 See_Comment [Auto mated message] The system which ge nerated this result transmit elizabeth reference range : <=65. The reference range was not used to interpr et this result as margaret l/abnormal. [facility] BranchLzdupsuOEVQIOYNRLOO9682-62-82 18:46:00 Test Item Value Reference Range Interpretation Comments AST (test code = AST) 53 See_Comment [Auto mated message] The system which ge nerated this result transmit elizabeth reference range : <=37. The reference range was not used to interpr et this result as margaret l/abnormal. [facility] BranchNmpualuFROXIODJTDEO4893-32-11 18:46:00 Test Item Value Reference Range Interpretation Comments Total Protein (test code = Total 6.9 6.4-8.4 Protein) [facility]viewFqsrkcpFVHLMWQJEA4752-97-23 18:46:00 Test Item Value Reference Range Interpretation Comments Eosinophils (test code = 4.2 See_Comment [A utomated message] The Eosinophils) system which ge nerated this result tra nsmitted reference range : <=4.0. The reference r mitra was not used to int erpret this result as normal/abnormal . [facility]viewHtepqclLVCJVUTKEC7159-35-40 18:46:00 Test Item Value Reference Range Interpretation Comments Segs (test code = Segs) 56.4 45.0-75.0 [facility]viewShygiefCKDSYGXHFR9447-40-27 18:46:00 Test Item Value Reference Range Interpretation Comments Monocytes (test code = Monocytes) 10.3 2.0-12.0 [facility]viewKnjloriDPVPPUUYJV7747-72-83 18:46:00 Test Item Value Reference Range Interpretation Comments Lymphocytes (test code = Lymphocytes) 28.0 20.0-40.0 [facility]viewGmualrdJYBSHZHSFU0746-61-41 18:46:00 Test Item Value Reference Range Interpretation Comments Monocytes # (test code 0.5 See_Comment [Aut omated message] The = Monocytes #) system which generated this result tra nsmitted reference range : <=0.8. The reference r mitra was not used to int erpret this result as normal/abnormal . [facility]viewByguztqLMBLMPYEAC2861-99-23 18:46:00 Test Item Value Reference Range Interpretation Comments Basophils (test code = 1.1 See_Comment [Aut omated message] The Basophils) system which ge nerated this result tra nsmitted reference range : <=1.0. The reference r mitra was not used to int erpret this result as normal/abnormal . [facility]viewTqaztcxHWVJYYPLAO8515-85-53 18:46:00 Test Item Value Reference Range Interpretation Comments Lymphocytes # (test code = Lymphocytes 1.5 1.0-5.5 #) [facility]viewQthgmmcLVKTRIRHTP9400-59-41 18:46:00 Test Item Value Reference Range Interpretation Comments Segs-Bands # (test code = Segs-Bands #) 2.9 1.5-8.1 [facility]viewEaeikchDOWZTKFNKZ9280-05-61 18:46:00 Test Item Value Reference Range Interpretation Comments Eosinophils # (test code 0.2 See_Comment [A utomated message] The = Eosinophils #) system whic h generated this result tra nsmitted reference range : <=0.5. The reference r mitra was not used to int erpret this result as normal/abnormal . [facility]viewIjaexdbRJRVYQIQJL6022-64-64 18:46:00 Test Item Value Reference Range Interpretation Comments Basophils # (test code 0.1 See_Comment [Aut omated message] The = Basophils #) system which generated this result tra nsmitted reference range : <=0.2. The reference r mitra was not used to int erpret this result as normal/abnormal . [facility]viewMbthqjaURWLZQYEFM9734-06-46 18:46:00 Test Item Value Reference Range Interpretation Comments PT (test code = PT) 11.2 s 12.0-14.7 [facility]viewYyrhqshFPZKNJDBLS9530-75-50 18:46:00 Test Item Value Reference Range Interpretation Comments INR (test code = INR) 0.82 0.85-1.17 [facility]viewJbirgljWHDPWXMDCS1087-21-92 18:46:00 Test Item Value Reference Range Interpretation Comments PTT (test code = PTT) 28.6 s 22.9-35.8 [facility]viewBwoxzwnVWVWQOZNUV5981-59-13 18:46:00 Test Item Value Reference Range Interpretation Comments MPV (test code = MPV) 8.1 7.4-10.4 [facility]viewMsioobcJTBYPUQEYD4474-50-84 18:46:00 Test Item Value Reference Range Interpretation Comments Platelet (test code = Platelet) 301 133-450 [facility]viewPiorxnpGVCGEGOPUG9913-30-43 18:46:00 Test Item Value Reference Range Interpretation Comments RDW (test code = RDW) 14.5 11.5-14.5 [facility]viewHlaffrpKDZYAXDJXX1956-26-52 18:46:00 Test Item Value Reference Range Interpretation Comments RBC (test code = RBC) 4.84 4.70-6.10 [facility]viewUaovapiCJNWVCZAXW2579-55-52 18:46:00 Test Item Value Reference Range Interpretation Comments Hgb (test code = Hgb) 14.4 14.0-18.0 [facility]MlodgyqXTHWFNFCHY5178-46-15 18:46:00 Test Item Value Reference Range Interpretation Comments WBC (test code = WBC) 5.2 3.7-10.4 [facility] HospitalYwobjzeJPYKFNUEYC8806-42-91 18:46:00 Test Item Value Reference Range Interpretation Comments MCH (test code = MCH) 29.8 pg 27.0-31.0 [facility]viewFnqhryoJALSFRIZCB4227-37-54 18:46:00 Test Item Value Reference Range Interpretation Comments MCV (test code = MCV) 92.0 80.0-94.0 [facility]viewSjclkttDQRVOSZFFH7150-48-72 18:46:00 Test Item Value Reference Range Interpretation Comments Hct (test code = Hct) 44.5 42.0-54.0 [facility]viewMgnlldzSIHLBUCLNE7463-44-26 18:46:00 Test Item Value Reference Range Interpretation Comments MCHC (test code = MCHC) 32.4 32.0-36.[address] [facility] [address] CenterLxjerelEAHQKLFEAF9898-69-86 18:46:00 Test Item Value Reference Range Interpretation Comments [place]-Hep C Ab (test Negative *NA*(07/22/14 code = [place]Hep C 1:46 PM) Ab) [facility] AND [id number] 18:46:00 Test Item Value Reference Range Interpretation Comments UA Urobilinogen (test code = UA <=1.0 mg/dL 0.1-1.0 Urobilinogen) [facility] AND [id number] 18:46:00 Test Item Value Reference Range Interpretation Comments UA Sq Epi (test code = UA Sq Epi) None Seen [facility] AND [id number] 18:46:00 Test Item Value Reference Range Interpretation Comments UA Leuk Est (test Negative (07/22/14 1:46 code = UA Leuk Est) PM) [facility] AND [id number] 18:46:00 Test Item Value Reference Range Interpretation Comments UA Nitrite (test code Negative (07/22/14 1:46 = UA Nitrite) PM) [facility] AND [id number] 18:46:00 Test Item Value Reference Range Interpretation Comments UA Blood (test code = Negative (07/22/14 1:46 UA Blood) PM) [facility] AND [id number] 18:46:00 Test Item Value Reference Range Interpretation Comments UA Ketones (test code = UA Negative mg/dL Ketones) [facility] AND [id number] 18:46:00 Test Item Value Reference Range Interpretation Comments UA Bili (test code = Negative *NA*(07/22/14 UA Bili) 1:46 PM) [facility] AND [id number] 18:46:00 Test Item Value Reference Range Interpretation Comments UA Bacteria (test code = UA Occasional /HPF Bacteria) [facility] AND [id number] 18:46:00 Test Item Value Reference Range Interpretation Comments UA RBC (test code = no gt See_Comment [Automa elizabeth message] The UA RBC) system which ge nerated this result transmit elizabeth reference range : <=2. The reference range was not used to interpr et this result as margaret l/abnormal. [facility] AND [id number] 18:46:00 Test Item Value Reference Range Interpretation Comments UA WBC (test code = 1 See_Comment [Automa elizabeth message] The UA WBC) system which ge nerated this result transmit elizabeth reference range : <=5. The reference range was not used to interpr et this result as margaret l/abnormal. [facility] AND [id number] 18:46:00 Test Item Value Reference Range Interpretation Comments UA Glucose (test code = UA Glucose) 30 mg/dL [facility] AND [id number] 18:46:00 Test Item Value Reference Range Interpretation Comments UA Protein (test code = UA Negative mg/dL Protein) [facility] AND [id number] 18:46:00 Test Item Value Reference Range Interpretation Comments UA pH (test code = UA pH) 6.5 5.0-8.0 [facility] AND [id number] 18:46:00 Test Item Value Reference Range Interpretation Comments UA Turbidity (test code = Clear (07/22/14 1:46 UA Turbidity) PM) [facility] AND [id number] 18:46:00 Test Item Value Reference Range Interpretation Comments UA Spec Grav (test code = UA Spec Grav) 1.010 [facility] AND [id number] 18:46:00 Test Item Value Reference Range Interpretation Comments UA Color (test code = Light Yellow UA Color) *NA*(07/22/14 1:46 PM) [facility] CenterCHE[facility] [id number] 18:46:00 Test Item Value Reference Range Interpretation Comments Magnesium Lvl (test code = Magnesium 1.8 1.8-2.4 Lvl) [facility] BranchOswglohXNXBPUOIGUQN4921-93-44 18:46:00 Test Item Value Reference Range Interpretation Comments AGAP (test code = AGAP) 13.2 10.0-20.0 [facility] BranchOuhvyetHLDBNZBUYEQQ1555-24-85 18:46:00 Test Item Value Reference Range Interpretation Comments B/C Ratio (test code = B/C Ratio) 18 6-25 [facility] BranchKlgohavVXCSPHWUOZYT3879-69-44 18:46:00 Test Item Value Reference Range Interpretation Comments A/G Ratio (test code = A/G Ratio) 1.1 0.7-1.6 [facility] BranchTppomzoAZPLJLLCJBED4386-70-39 18:46:00 Test Item Value Reference Range Interpretation Comments Globulin (test code = Globulin) 3.3 2.0-4.0 [facility] BranchJevxzktCGQBYBLLKTJX2418-36-13 18:46:00 Test Item Value Reference Range Interpretation Comments eGFR (test code = eGFR) 99 [facility] BranchMdyllnuXHDNUQXJSPXI4524-21-83 18:46:00 Test Item Value Reference Range Interpretation Comments Calcium Lvl (test code = Calcium Lvl) 9.0 8.5-10.5 [facility] BranchPgbskcfNBIRQFEAOYVT8849-78-25 18:46:00 Test Item Value Reference Range Interpretation Comments Chloride Lvl (test code = Chloride Lvl) 106 95-109 [facility] BranchKvhdljhTAQTXRZCDPVF3598-03-48 18:46:00 Test Item Value Reference Range Interpretation Comments Creatinine Lvl (test code = Creatinine 0.9 0.5-1.4 Lvl) [facility] BranchCqysxkcAXLLAVNDWHGW4540-27-96 18:46:00 Test Item Value Reference Range Interpretation Comments Potassium Lvl (test code = Potassium 4.2 3.5-5.1 Lvl) [facility] BranchQdbeydjKZWHXZYOJXKT6478-11-85 18:46:00 Test Item Value Reference Range Interpretation Comments Sodium Lvl (test code = Sodium Lvl) 139 135-145 [facility] BranchQkuwotwELVTQPSCRWQZ7793-47-94 18:46:00 Test Item Value Reference Range Interpretation Comments CO2 (test code = CO2) 24 24-32 [facility] BranchJbkmoyyGTGURVRJNJXU6693-91-82 18:46:00 Test Item Value Reference Range Interpretation Comments BUN (test code = BUN) 16 7-22 [facility] BranchFiltdpqRRKTFKFQSIUN8427-72-42 18:46:00 Test Item Value Reference Range Interpretation Comments Glucose Lvl (test code = Glucose Lvl) 141 70-99 [facility] BranchSnjsajhOXLIHOMTDGBY0114-68-25 18:46:00 Test Item Value Reference Range Interpretation Comments Albumin Lvl (test code = Albumin Lvl) 3.6 3.5-5.0 [facility] BranchXjynngtJKVFBMONMHBU0485-73-88 18:46:00 Test Item Value Reference Range Interpretation Comments Alk Phos (test code = Alk Phos) 65 39-136 [facility] BranchSjzwewlCLBAFTVXJNPO4303-97-23 18:46:00 Test Item Value Reference Range Interpretation Comments Bili Total (test code = Bili Total) 0.3 0.2-1.3 [facility] BranchVvafrpmLLHTECSSGFCQ9073-97-55 18:46:00 Test Item Value Reference Range Interpretation Comments ALT (test code = ALT) 100 See_Comment [Auto mated message] The system which ge nerated this result transmit elizabeth reference range : <=65. The reference range was not used to interpr et this result as margaret l/abnormal. [facility] BranchRiquqkvURHHYJBCTIMA4716-51-43 18:46:00 Test Item Value Reference Range Interpretation Comments AST (test code = AST) 53 See_Comment [Auto mated message] The system which ge nerated this result transmit elizabeth reference range : <=37. The reference range was not used to interpr et this result as margaret l/abnormal. [facility] BranchWsahawlRBCCGZEEABIZ4105-49-90 18:46:00 Test Item Value Reference Range Interpretation Comments Total Protein (test code = Total 6.9 6.4-8.4 Protein) [facility]EpzqptdBQQLDXCXQI8510-44-14 18:46:00 Test Item Value Reference Range Interpretation Comments Eosinophils (test code = 4.2 See_Comment [A utomated message] The Eosinophils) system which ge nerated this result tra nsmitted reference range : <=4.0. The reference r mitra was not used to int erpret this result as normal/abnormal . [facility]PmvhoknUULKKPTPVW6118-54-33 18:46:00 Test Item Value Reference Range Interpretation Comments Segs (test code = Segs) 56.4 45.0-75.0 [facility]viewUhozhefMLHLGEIHWS9076-94-05 18:46:00 Test Item Value Reference Range Interpretation Comments Monocytes (test code = Monocytes) 10.3 2.0-12.0 [facility]viewBdybrmkWUEYUQHGHO8974-16-63 18:46:00 Test Item Value Reference Range Interpretation Comments Lymphocytes (test code = Lymphocytes) 28.0 20.0-40.0 [facility]viewVdvzcqbQGNFHXRDKG2028-89-61 18:46:00 Test Item Value Reference Range Interpretation Comments Monocytes # (test code 0.5 See_Comment [Aut omated message] The = Monocytes #) system which generated this result tra nsmitted reference range : <=0.8. The reference r mitra was not used to int erpret this result as normal/abnormal . [facility]viewUqzipqsBFESRYGLET7385-90-23 18:46:00 Test Item Value Reference Range Interpretation Comments Basophils (test code = 1.1 See_Comment [Aut omated message] The Basophils) system which ge nerated this result tra nsmitted reference range : <=1.0. The reference r mitra was not used to int erpret this result as normal/abnormal . [facility]viewMydqehoOBMSBIBYCR5773-92-40 18:46:00 Test Item Value Reference Range Interpretation Comments Lymphocytes # (test code = Lymphocytes 1.5 1.0-5.5 #) [facility]viewEluhfavMOQHPELNJZ7969-24-35 18:46:00 Test Item Value Reference Range Interpretation Comments Segs-Bands # (test code = Segs-Bands #) 2.9 1.5-8.1 [facility]viewOuxunmqRUOGFTMGLM5599-74-34 18:46:00 Test Item Value Reference Range Interpretation Comments Eosinophils # (test code 0.2 See_Comment [A utomated message] The = Eosinophils #) system whic h generated this result tra nsmitted reference range : <=0.5. The reference r mitra was not used to int erpret this result as normal/abnormal . [facility]viewKqvzhfcZOVNQYBRMW9949-31-03 18:46:00 Test Item Value Reference Range Interpretation Comments Basophils # (test code 0.1 See_Comment [Aut omated message] The = Basophils #) system which generated this result tra nsmitted reference range : <=0.2. The reference r mitra was not used to int erpret this result as normal/abnormal . [facility]viewLadssrrLKNDKAQFVO0457-15-86 18:46:00 Test Item Value Reference Range Interpretation Comments PT (test code = PT) 11.2 s 12.0-14.7 [facility]viewMvrldroRDEWUHEIRT5230-38-45 18:46:00 Test Item Value Reference Range Interpretation Comments INR (test code = INR) 0.82 0.85-1.17 [facility]viewOhjqritLCZGDJZVHB3684-63-40 18:46:00 Test Item Value Reference Range Interpretation Comments PTT (test code = PTT) 28.6 s 22.9-35.8 [facility]viewDsytlxsBZERPZVCNP1549-25-29 18:46:00 Test Item Value Reference Range Interpretation Comments MPV (test code = MPV) 8.1 7.4-10.4 [facility]viewYwyrjhhZUMWVDIUNQ2011-98-42 18:46:00 Test Item Value Reference Range Interpretation Comments Platelet (test code = Platelet) 301 133-450 [facility]viewAipulbjGTSNZKUABS9443-12-37 18:46:00 Test Item Value Reference Range Interpretation Comments RDW (test code = RDW) 14.5 11.5-14.5 [facility]viewUfjnimoQYBSZUQGEA7174-62-37 18:46:00 Test Item Value Reference Range Interpretation Comments RBC (test code = RBC) 4.84 4.70-6.10 [facility]viewElqamciEKZLUBBIHT2659-01-22 18:46:00 Test Item Value Reference Range Interpretation Comments Hgb (test code = Hgb) 14.4 14.0-18.0 [facility]viewGmejxrfESLIWKUAAZ6798-08-54 18:46:00 Test Item Value Reference Range Interpretation Comments WBC (test code = WBC) 5.2 3.7-10.4 [facility]viewRzmfkltRGMNKTYZOS9570-77-84 18:46:00 Test Item Value Reference Range Interpretation Comments MCH (test code = MCH) 29.8 pg 27.0-31.0 [facility]viewIznhkwhGKTNOMMMZU1366-85-03 18:46:00 Test Item Value Reference Range Interpretation Comments MCV (test code = MCV) 92.0 80.0-94.0 [facility]viewFmxyfwdRXUQDYEYSA8679-31-66 18:46:00 Test Item Value Reference Range Interpretation Comments Hct (test code = Hct) 44.5 42.0-54.[address] [facility] CenterXpcbdnmBZOPNORLYC9759-38-26 18:46:00 Test Item Value Reference Range Interpretation Comments MCHC (test code = MCHC) 32.4 32.0-36.[address] [facility] [address] CenterQwcqtjqAIYDDWFLGR6962-67-20 18:46:00 Test Item Value Reference Range Interpretation Comments [place]-Hep C Ab (test Negative *NA*(07/22/14 code = [place]-Hep C 1:46 PM) Ab) [facility] AND [id number] 18:46:00 Test Item Value Reference Range Interpretation Comments UA Urobilinogen (test code = UA <=1.0 mg/dL 0.1-1.0 Urobilinogen) [facility] AND [id number] 18:46:00 Test Item Value Reference Range Interpretation Comments UA Sq Epi (test code = UA Sq Epi) None Seen [facility] AND [id number] 18:46:00 Test Item Value Reference Range Interpretation Comments UA Leuk Est (test Negative (07/22/14 1:46 code = UA Leuk Est) PM) [facility] AND [id number] 18:46:00 Test Item Value Reference Range Interpretation Comments UA Nitrite (test code Negative (07/22/14 1:46 = UA Nitrite) PM) [facility] AND [id number] 18:46:00 Test Item Value Reference Range Interpretation Comments UA Blood (test code = Negative (07/22/14 1:46 UA Blood) PM) [facility] AND [id number] 18:46:00 Test Item Value Reference Range Interpretation Comments UA Ketones (test code = UA Negative mg/dL Ketones) [facility] AND [id number] 18:46:00 Test Item Value Reference Range Interpretation Comments UA Bili (test code = Negative *NA*(07/22/14 UA Bili) 1:46 PM) [facility] AND [id number] 18:46:00 Test Item Value Reference Range Interpretation Comments UA Bacteria (test code = UA Occasional /HPF Bacteria) [facility] AND [id number] 18:46:00 Test Item Value Reference Range Interpretation Comments UA RBC (test code = no gt See_Comment [Automa elizabeth message] The UA RBC) system which ge nerated this result transmit elizabeth reference range : <=2. The reference range was not used to interpr et this result as margaret l/abnormal. [facility] [id number] 18:46:00 Test Item Value Reference Range Interpretation Comments UA WBC (test code = 1 See_Comment [Automa elizabeth message] The UA WBC) system which ge nerated this result transmit elizabeth reference range : <=5. The reference range was not used to interpr et this result as margaret l/abnormal. [facility] [id number] 18:46:00 Test Item Value Reference Range Interpretation Comments UA Glucose (test code = UA Glucose) 30 mg/dL [facility] [id number] 18:46:00 Test Item Value Reference Range Interpretation Comments UA Protein (test code = UA Negative mg/dL Protein) [facility] [id number] 18:46:00 Test Item Value Reference Range Interpretation Comments UA pH (test code = UA pH) 6.5 5.0-8.0 [facility] [id number] 18:46:00 Test Item Value Reference Range Interpretation Comments UA Turbidity (test code = Clear (07/22/14 1:46 UA Turbidity) PM) [facility] [id number] 18:46:00 Test Item Value Reference Range Interpretation Comments UA Spec Grav (test code = UA Spec Grav) 1.010 [facility] [id number] 18:46:00 Test Item Value Reference Range Interpretation Comments UA Color (test code = Light Yellow UA Color) *NA*(07/22/14 1:46 PM) [facility] [id number] 18:46:00 Test Item Value Reference Range Interpretation Comments Magnesium Lvl (test code = Magnesium 1.8 1.8-2.4 Lvl) [facility] VeyyyqoZODHOFFHRYZW9908-32-49 18:46:00 Test Item Value Reference Range Interpretation Comments AGAP (test code = AGAP) 13.2 10.0-20.0 [facility] JpnanppYTLIAVWFKKEG4065-35-90 18:46:00 Test Item Value Reference Range Interpretation Comments B/C Ratio (test code = B/C Ratio) 18 6-25 [facility]XkogiroBYSZITFAQQAX5663-35-71 18:46:00 Test Item Value Reference Range Interpretation Comments A/G Ratio (test code = A/G Ratio) 1.1 0.7-1.6 [facility] BranchIflpmzsIHJYPWZDKNVM6713-92-84 18:46:00 Test Item Value Reference Range Interpretation Comments Globulin (test code = Globulin) 3.3 2.0-4.0 [facility] BranchYujjskaDNDTMJDSGVPE1619-55-62 18:46:00 Test Item Value Reference Range Interpretation Comments eGFR (test code = eGFR) 99 [facility] BranchWsdjsmlCYEEXGDZRRHR1799-61-16 18:46:00 Test Item Value Reference Range Interpretation Comments Calcium Lvl (test code = Calcium Lvl) 9.0 8.5-10.5 [facility] BranchPfvevwiHNUFHUPLFNFE5663-93-11 18:46:00 Test Item Value Reference Range Interpretation Comments Chloride Lvl (test code = Chloride Lvl) 106 95-109 [facility] BranchZtsjgjbRLQNQYUJPYMH6974-01-25 18:46:00 Test Item Value Reference Range Interpretation Comments Creatinine Lvl (test code = Creatinine 0.9 0.5-1.4 Lvl) [facility] BranchMpmrtzaAMWDSYQWUUZC4538-45-24 18:46:00 Test Item Value Reference Range Interpretation Comments Potassium Lvl (test code = Potassium 4.2 3.5-5.1 Lvl) [facility] BranchVeqeojfLXSHHFFYMMAJ2651-30-44 18:46:00 Test Item Value Reference Range Interpretation Comments Sodium Lvl (test code = Sodium Lvl) 139 135-145 [facility] BranchVservuvCNJJJZYLHUQA7746-34-15 18:46:00 Test Item Value Reference Range Interpretation Comments CO2 (test code = CO2) 24 24-32 [facility] BranchQlktiroAYTETQJNCXVV4376-57-39 18:46:00 Test Item Value Reference Range Interpretation Comments BUN (test code = BUN) 16 7-22 [facility] BranchVbgjadhCRLPGSEYZIWL7336-22-40 18:46:00 Test Item Value Reference Range Interpretation Comments Glucose Lvl (test code = Glucose Lvl) 141 70-99 [facility] BranchJaovhmyBTSDPYAOMSLF7990-50-98 18:46:00 Test Item Value Reference Range Interpretation Comments Albumin Lvl (test code = Albumin Lvl) 3.6 3.5-5.0 [facility] BranchUkrmnonLYGGBWYTVHGD9733-95-35 18:46:00 Test Item Value Reference Range Interpretation Comments Alk Phos (test code = Alk Phos) 65 39-136 [facility] BranchQpeaprfLQSGGKBORBDT3661-12-19 18:46:00 Test Item Value Reference Range Interpretation Comments Bili Total (test code = Bili Total) 0.3 0.2-1.3 [facility] BranchUgdutmzRQXZFXEUFBLX9216-13-67 18:46:00 Test Item Value Reference Range Interpretation Comments ALT (test code = ALT) 100 See_Comment [Auto mated message] The system which ge nerated this result transmit elizabeth reference range : <=65. The reference range was not used to interpr et this result as margaret l/abnormal. [facility] BranchOxtlsmrOHHUSELQYBYK9671-73-47 18:46:00 Test Item Value Reference Range Interpretation Comments AST (test code = AST) 53 See_Comment [Auto mated message] The system which ge nerated this result transmit elizabeth reference range : <=37. The reference range was not used to interpr et this result as margaret l/abnormal. [facility] BranchRftlfzoZQFGLAZQFODQ0903-72-35 18:46:00 Test Item Value Reference Range Interpretation Comments Total Protein (test code = Total 6.9 6.4-8.4 Protein) [facility]viewQtcrianOPHMGYQUUD8092-23-61 18:46:00 Test Item Value Reference Range Interpretation Comments Eosinophils (test code = 4.2 See_Comment [A utomated message] The Eosinophils) system which ge nerated this result tra nsmitted reference range : <=4.0. The reference r mitra was not used to int erpret this result as normal/abnormal . [facility]viewJwcmhtlVKRWRKFEDT3655-20-07 18:46:00 Test Item Value Reference Range Interpretation Comments Segs (test code = Segs) 56.4 45.0-75.0 [facility]viewVnpxrfoBNOYCPWVKO3860-48-78 18:46:00 Test Item Value Reference Range Interpretation Comments Monocytes (test code = Monocytes) 10.3 2.0-12.0 [facility]viewLkqmuusQTMEJPLEDQ3607-36-85 18:46:00 Test Item Value Reference Range Interpretation Comments Lymphocytes (test code = Lymphocytes) 28.0 20.0-40.0 [facility]viewLeaeyboKZRXZOQEBS0837-31-92 18:46:00 Test Item Value Reference Range Interpretation Comments Monocytes # (test code 0.5 See_Comment [Aut omated message] The = Monocytes #) system which generated this result tra nsmitted reference range : <=0.8. The reference r mitra was not used to int erpret this result as normal/abnormal . [facility]viewOleredmIJMWWUNZQI6628-60-86 18:46:00 Test Item Value Reference Range Interpretation Comments Basophils (test code = 1.1 See_Comment [Aut omated message] The Basophils) system which ge nerated this result tra nsmitted reference range : <=1.0. The reference r mitra was not used to int erpret this result as normal/abnormal . [facility]viewXvvdakdWRLFAGBUZL6349-89-55 18:46:00 Test Item Value Reference Range Interpretation Comments Lymphocytes # (test code = Lymphocytes 1.5 1.0-5.5 #) [facility]viewUxyugltBSZXTKELKB9829-40-93 18:46:00 Test Item Value Reference Range Interpretation Comments Segs-Bands # (test code = Segs-Bands #) 2.9 1.5-8.1 [facility]viewRtzqsauRLYDNEVDNX2208-75-25 18:46:00 Test Item Value Reference Range Interpretation Comments Eosinophils # (test code 0.2 See_Comment [A utomated message] The = Eosinophils #) system whic h generated this result tra nsmitted reference range : <=0.5. The reference r mitra was not used to int erpret this result as normal/abnormal . [facility]viewMmjbyprTDQXETPCZR2809-69-82 18:46:00 Test Item Value Reference Range Interpretation Comments Basophils # (test code 0.1 See_Comment [Aut omated message] The = Basophils #) system which generated this result tra nsmitted reference range : <=0.2. The reference r mitra was not used to int erpret this result as normal/abnormal . [facility]viewNiodlsxCWGDZLNGYN6662-19-62 18:46:00 Test Item Value Reference Range Interpretation Comments PT (test code = PT) 11.2 s 12.0-14.7 [facility]viewJemxiasFYOKWGNPFF7850-11-46 18:46:00 Test Item Value Reference Range Interpretation Comments INR (test code = INR) 0.82 0.85-1.17 [facility]viewFelzqxaNDXEBTBIXS0604-42-76 18:46:00 Test Item Value Reference Range Interpretation Comments PTT (test code = PTT) 28.6 s 22.9-35.8 [facility]TiaqmzxUTEAMWYVOC3374-54-16 18:46:00 Test Item Value Reference Range Interpretation Comments MPV (test code = MPV) 8.1 7.4-10.4 [facility] HospitalWqbcdsyQMFOUUGQRE9095-65-62 18:46:00 Test Item Value Reference Range Interpretation Comments Platelet (test code = Platelet) 301 133-450 [facility] HospitalFvdnzfgRTCTTJFPJE0829-20-20 18:46:00 Test Item Value Reference Range Interpretation Comments RDW (test code = RDW) 14.5 11.5-14.5 [facility] HospitalEyhmmlnPBTYWGRINA8447-96-15 18:46:00 Test Item Value Reference Range Interpretation Comments RBC (test code = RBC) 4.84 4.70-6.10 [facility]viewZqruxhgPSIROKFIQI7389-54-84 18:46:00 Test Item Value Reference Range Interpretation Comments Hgb (test code = Hgb) 14.4 14.0-18.[address] [facility] CenterNfddbzxHUNDDUUDDD8820-14-53 18:46:00 Test Item Value Reference Range Interpretation Comments WBC (test code = WBC) 5.2 3.7-10.4 [facility] HospitalXjmyyfqUBJBONYXMU9570-22-63 18:46:00 Test Item Value Reference Range Interpretation Comments MCH (test code = MCH) 29.8 pg 27.0-31.0 [facility] HospitalPxkerrpJBIVNSTDVA0479-65-14 18:46:00 Test Item Value Reference Range Interpretation Comments MCV (test code = MCV) 92.0 80.0-94.[address] CenterKhlzhszCQJHUTBGVO9993-36-99 18:46:00 Test Item Value Reference Range Interpretation Comments Hct (test code = Hct) 44.5 42.0-54.0 [facility] HospitalOznnedkXXRWHCHHZR6991-46-21 18:46:00 Test Item Value Reference Range Interpretation Comments MCHC (test code = MCHC) 32.4 32.0-36.0 [facility]GwibqhvEZAAWGPJDB4088-50-07 18:46:00 Test Item Value Reference Range Interpretation Comments [place]-Hep C Ab (test Negative *NA*(07/22/14 code = [place]-Hep C 1:46 PM) Ab) [facility] AND [id number] 18:46:00 Test Item Value Reference Range Interpretation Comments UA Urobilinogen (test code = UA <=1.0 mg/dL 0.1-1.0 Urobilinogen) [facility] AND [id number] 18:46:00 Test Item Value Reference Range Interpretation Comments UA Sq Epi (test code = UA Sq Epi) None Seen [facility] AND [id number] 18:46:00 Test Item Value Reference Range Interpretation Comments UA Leuk Est (test Negative (07/22/14 1:46 code = UA Leuk Est) PM) [facility] AND [id number] 18:46:00 Test Item Value Reference Range Interpretation Comments UA Nitrite (test code Negative (07/22/14 1:46 = UA Nitrite) PM) [facility] AND [id number] 18:46:00 Test Item Value Reference Range Interpretation Comments UA Blood (test code = Negative (07/22/14 1:46 UA Blood) PM) [facility] AND [id number] 18:46:00 Test Item Value Reference Range Interpretation Comments UA Ketones (test code = UA Negative mg/dL Ketones) [facility] AND [id number] 18:46:00 Test Item Value Reference Range Interpretation Comments UA Bili (test code = Negative *NA*(07/22/14 UA Bili) 1:46 PM) [facility] AND [id number] 18:46:00 Test Item Value Reference Range Interpretation Comments UA Bacteria (test code = UA Occasional /HPF Bacteria) [facility] AND [id number] 18:46:00 Test Item Value Reference Range Interpretation Comments UA RBC (test code = no gt See_Comment [Automa elizabeth message] The UA RBC) system which ge nerated this result transmit elizabeth reference range : <=2. The reference range was not used to interpr et this result as margaret l/abnormal. [facility] AND [id number] 18:46:00 Test Item Value Reference Range Interpretation Comments UA WBC (test code = 1 See_Comment [Automa elizabeth message] The UA WBC) system which ge nerated this result transmit elizabeth reference range : <=5. The reference range was not used to interpr et this result as margaret l/abnormal. [facility] AND [id number] 18:46:00 Test Item Value Reference Range Interpretation Comments UA Glucose (test code = UA Glucose) 30 mg/dL [facility] AND [id number] 18:46:00 Test Item Value Reference Range Interpretation Comments UA Protein (test code = UA Negative mg/dL Protein) [facility] AND [id number] 18:46:00 Test Item Value Reference Range Interpretation Comments UA pH (test code = UA pH) 6.5 5.0-8.0 [facility] AND [id number] 18:46:00 Test Item Value Reference Range Interpretation Comments UA Turbidity (test code = Clear (07/22/14 1:46 UA Turbidity) PM) [facility] AND [id number] 18:46:00 Test Item Value Reference Range Interpretation Comments UA Spec Grav (test code = UA Spec Grav) 1.010 [facility] AND [id number] 18:46:00 Test Item Value Reference Range Interpretation Comments UA Color (test code = Light Yellow UA Color) *NA*(07/22/14 1:46 PM) [facility]CHE[facility] TSNQO9488-03-25 18:46:00 Test Item Value Reference Range Interpretation Comments Magnesium Lvl (test code = Magnesium 1.8 1.8-2.4 Lvl) [facility] BranchNosdamrKTDUNBHSSQEI4748-02-03 18:46:00 Test Item Value Reference Range Interpretation Comments AGAP (test code = AGAP) 13.2 10.0-20.0 [facility] BranchBpmkzszGFCLWMNZFJFE8745-23-09 18:46:00 Test Item Value Reference Range Interpretation Comments B/C Ratio (test code = B/C Ratio) 18 6-25 [facility] BranchRyrmcsgEBTFRSRXKMBY1639-26-39 18:46:00 Test Item Value Reference Range Interpretation Comments A/G Ratio (test code = A/G Ratio) 1.1 0.7-1.6 [facility] BranchYiggkpgLJJRRPXYTVOZ7391-69-20 18:46:00 Test Item Value Reference Range Interpretation Comments Globulin (test code = Globulin) 3.3 2.0-4.0 [facility] BranchYvoiwlpQXJEAXLIORTM1249-47-95 18:46:00 Test Item Value Reference Range Interpretation Comments eGFR (test code = eGFR) 99 [facility] BranchRzflgiyEAVDPLNJVSCM3307-26-92 18:46:00 Test Item Value Reference Range Interpretation Comments Calcium Lvl (test code = Calcium Lvl) 9.0 8.5-10.5 [facility] BranchVtukryeSQAGMLIVDPQS6443-06-20 18:46:00 Test Item Value Reference Range Interpretation Comments Chloride Lvl (test code = Chloride Lvl) 106 95-109 [facility] BranchZxfkwnfOEWOFJJMZOGZ7176-65-96 18:46:00 Test Item Value Reference Range Interpretation Comments Creatinine Lvl (test code = Creatinine 0.9 0.5-1.4 Lvl) [facility] BranchHppmzejNSNBUKAKPRKN9688-92-52 18:46:00 Test Item Value Reference Range Interpretation Comments Potassium Lvl (test code = Potassium 4.2 3.5-5.1 Lvl) [facility] BranchWueutdtBKTMIJLHMUOJ7236-36-83 18:46:00 Test Item Value Reference Range Interpretation Comments Sodium Lvl (test code = Sodium Lvl) 139 135-145 [facility] BranchAaxjcpuBIQUORMOLODR8572-00-99 18:46:00 Test Item Value Reference Range Interpretation Comments CO2 (test code = CO2) 24 24-32 [facility] BranchScyfgorCPVGSRITZBNY1898-15-78 18:46:00 Test Item Value Reference Range Interpretation Comments BUN (test code = BUN) 16 7-22 [facility] BranchAywydtxCCIAZGURIXKG6841-45-14 18:46:00 Test Item Value Reference Range Interpretation Comments Glucose Lvl (test code = Glucose Lvl) 141 70-99 [facility] BranchAsystzqWOSBECZOQMUS1144-02-90 18:46:00 Test Item Value Reference Range Interpretation Comments Albumin Lvl (test code = Albumin Lvl) 3.6 3.5-5.0 [facility] BranchHcvevuuGAAEEFSLMWLK0265-69-75 18:46:00 Test Item Value Reference Range Interpretation Comments Alk Phos (test code = Alk Phos) 65 39-136 [facility] BranchZcdyhsaYYDLJCRUIQVS5466-45-92 18:46:00 Test Item Value Reference Range Interpretation Comments Bili Total (test code = Bili Total) 0.3 0.2-1.3 [facility] BranchHxmwnrlINAWSPGUFIEX2878-31-63 18:46:00 Test Item Value Reference Range Interpretation Comments ALT (test code = ALT) 100 See_Comment [Auto mated message] The system which ge nerated this result transmit elizabeth reference range : <=65. The reference range was not used to interpr et this result as margaret l/abnormal. [facility] BranchCzxbtulAMPZWLRNPBUY5875-93-34 18:46:00 Test Item Value Reference Range Interpretation Comments AST (test code = AST) 53 See_Comment [Auto mated message] The system which ge nerated this result transmit elizabeth reference range : <=37. The reference range was not used to interpr et this result as margaret l/abnormal. [facility] BranchAppggfnKIMKCBAQSVOE6310-91-40 18:46:00 Test Item Value Reference Range Interpretation Comments Total Protein (test code = Total 6.9 6.4-8.4 Protein) [facility]viewFvgetejDZMTPVWHGD7530-33-02 18:46:00 Test Item Value Reference Range Interpretation Comments Eosinophils (test code = 4.2 See_Comment [A utomated message] The Eosinophils) system which ge nerated this result tra nsmitted reference range : <=4.0. The reference r mitra was not used to int erpret this result as normal/abnormal . [facility]viewUfivzgdFUXBXDNMTT2957-28-74 18:46:00 Test Item Value Reference Range Interpretation Comments Segs (test code = Segs) 56.4 45.0-75.0 [facility]viewJwzbzbvEYRUSJUNMQ5466-04-72 18:46:00 Test Item Value Reference Range Interpretation Comments Monocytes (test code = Monocytes) 10.3 2.0-12.0 [place] [id number] 18:46:00 Test Item Value Reference Range Interpretation Comments Lymphocytes (test code = Lymphocytes) 28.0 20.0-40.0 [facility]viewHzbqbnkAPPFCPUYRX7504-21-41 18:46:00 Test Item Value Reference Range Interpretation Comments Monocytes # (test code 0.5 See_Comment [Aut omated message] The = Monocytes #) system which generated this result tra nsmitted reference range : <=0.8. The reference r mitra was not used to int erpret this result as normal/abnormal . [facility]viewTybwcitITTMJPBRGI2907-79-28 18:46:00 Test Item Value Reference Range Interpretation Comments Basophils (test code = 1.1 See_Comment [Aut omated message] The Basophils) system which ge nerated this result tra nsmitted reference range : <=1.0. The reference r mitra was not used to int erpret this result as normal/abnormal . [facility]viewEthqyedMWTWDTNVKT8847-50-53 18:46:00 Test Item Value Reference Range Interpretation Comments Lymphocytes # (test code = Lymphocytes 1.5 1.0-5.5 #) [facility]viewSaysptiUQWOTPSGDJ9514-64-83 18:46:00 Test Item Value Reference Range Interpretation Comments Segs-Bands # (test code = Segs-Bands #) 2.9 1.5-8.1 [facility]viewMfshgylMQVTAJLEXX8678-04-14 18:46:00 Test Item Value Reference Range Interpretation Comments Eosinophils # (test code 0.2 See_Comment [A utomated message] The = Eosinophils #) system whic h generated this result tra nsmitted reference range : <=0.5. The reference r mitra was not used to int erpret this result as normal/abnormal . [facility]viewYqchmjgRYTIZJIBDV5692-37-46 18:46:00 Test Item Value Reference Range Interpretation Comments Basophils # (test code 0.1 See_Comment [Aut omated message] The = Basophils #) system which generated this result tra nsmitted reference range : <=0.2. The reference r mitra was not used to int erpret this result as normal/abnormal . [facility]viewTrsrtzmRFDOEHWXHX2706-13-63 18:46:00 Test Item Value Reference Range Interpretation Comments PT (test code = PT) 11.2 s 12.0-14.7 [facility]viewRsdrzbvRDFPOAYOHT1361-40-59 18:46:00 Test Item Value Reference Range Interpretation Comments INR (test code = INR) 0.82 0.85-1.17 [facility]viewShczwsrDHBIVYLJDQ1203-76-08 18:46:00 Test Item Value Reference Range Interpretation Comments PTT (test code = PTT) 28.6 s 22.9-35.8 [facility] [place]ygqumdTXATMYKTCN3318-78-06 18:46:00 Test Item Value Reference Range Interpretation Comments MPV (test code = MPV) 8.1 7.4-10.4 [facility]viewGwwyzmgOXYRXFENYK0867-77-69 18:46:00 Test Item Value Reference Range Interpretation Comments Platelet (test code = Platelet) 301 133-450 [facility] LongviewHpwizyoLRPAAXBHNR1867-59-97 18:46:00 Test Item Value Reference Range Interpretation Comments RDW (test code = RDW) 14.5 11.5-14.5 [facility]EgnlqmnNQDPXCVGXV4272-83-72 18:46:00 Test Item Value Reference Range Interpretation Comments RBC (test code = RBC) 4.84 4.70-6.10 [facility] HospitalFvlhuprASANWBALJV0514-07-84 18:46:00 Test Item Value Reference Range Interpretation Comments Hgb (test code = Hgb) 14.4 14.0-18.0 [facility] HospitalEsqitgcVLPGMJBJCG2058-88-79 18:46:00 Test Item Value Reference Range Interpretation Comments WBC (test code = WBC) 5.2 3.7-10.4 [facility] HospitalGtvsxinQXKLUTMADI8854-17-03 18:46:00 Test Item Value Reference Range Interpretation Comments MCH (test code = MCH) 29.8 pg 27.0-31.0 [facility] LongviewLrkisapGAMNAFYONE6409-48-04 18:46:00 Test Item Value Reference Range Interpretation Comments MCV (test code = MCV) 92.0 80.0-94.0 [facility] HospitalAgpzvygBOFZJUHUZO1387-57-47 18:46:00 Test Item Value Reference Range Interpretation Comments Hct (test code = Hct) 44.5 42.0-54.0 [facility] HospitalFfzchddLUVZXNVDWM0973-78-57 18:46:00 Test Item Value Reference Range Interpretation Comments MCHC (test code = MCHC) 32.4 32.0-36.[address] [facility] CenterPzsqgpgSOBYYPQSCA1580-24-05 18:46:00 Test Item Value Reference Range Interpretation Comments [place]-Hep C Ab (test Negative *NA*(07/22/14 code = [place]-Hep C 1:46 PM) Ab) [facility] AND [id number] 18:46:00 Test Item Value Reference Range Interpretation Comments UA Urobilinogen (test code = UA <=1.0 mg/dL 0.1-1.0 Urobilinogen) [facility] [id number] 18:46:00 Test Item Value Reference Range Interpretation Comments UA Sq Epi (test code = UA Sq Epi) None Seen [facility] AND [id number] 18:46:00 Test Item Value Reference Range Interpretation Comments UA Leuk Est (test Negative (07/22/14 1:46 code = UA Leuk Est) PM) [facility] [id number] 18:46:00 Test Item Value Reference Range Interpretation Comments UA Nitrite (test code Negative (07/22/14 1:46 = UA Nitrite) PM) [facility] AND [id number] 18:46:00 Test Item Value Reference Range Interpretation Comments UA Blood (test code = Negative (07/22/14 1:46 UA Blood) PM) [facility] AND [id number] 18:46:00 Test Item Value Reference Range Interpretation Comments UA Ketones (test code = UA Negative mg/dL Ketones) [facility] AND [id number] 18:46:00 Test Item Value Reference Range Interpretation Comments UA Bili (test code = Negative *NA*(07/22/14 UA Bili) 1:46 PM) [facility] AND [id number] 18:46:00 Test Item Value Reference Range Interpretation Comments UA Bacteria (test code = UA Occasional /HPF Bacteria) [facility] AND [id number] 18:46:00 Test Item Value Reference Range Interpretation Comments UA RBC (test code = no gt See_Comment [Automa elizabeth message] The UA RBC) system which ge nerated this result transmit elizabeth reference range : <=2. The reference range was not used to interpr et this result as margaret l/abnormal. [facility] AND [id number] 18:46:00 Test Item Value Reference Range Interpretation Comments UA WBC (test code = 1 See_Comment [Automa elizabeth message] The UA WBC) system which ge nerated this result transmit elizabeth reference range : <=5. The reference range was not used to interpr et this result as margaret l/abnormal. [facility] AND [id number] 18:46:00 Test Item Value Reference Range Interpretation Comments UA Glucose (test code = UA Glucose) 30 mg/dL [facility] AND [id number] 18:46:00 Test Item Value Reference Range Interpretation Comments UA Protein (test code = UA Negative mg/dL Protein) [facility] AND [id number] 18:46:00 Test Item Value Reference Range Interpretation Comments UA pH (test code = UA pH) 6.5 5.0-8.0 [facility] AND [id number] 18:46:00 Test Item Value Reference Range Interpretation Comments UA Turbidity (test code = Clear (07/22/14 1:46 UA Turbidity) PM) [facility] [id number] 18:46:00 Test Item Value Reference Range Interpretation Comments UA Spec Grav (test code = UA Spec Grav) 1.010 [facility] AND [id number] 18:46:00 Test Item Value Reference Range Interpretation Comments UA Color (test code = Light Yellow UA Color) *NA*(07/22/14 1:46 PM) [facility] [id number] 18:46:00 Test Item Value Reference Range Interpretation Comments Magnesium Lvl (test code = Magnesium 1.8 1.8-2.4 Lvl) [facility] BranchJikuxmqFKUTZTICWSVX8038-96-47 18:46:00 Test Item Value Reference Range Interpretation Comments AGAP (test code = AGAP) 13.2 10.0-20.0 [facility] BranchVytelyeWOVLBRTGLBWI6584-54-92 18:46:00 Test Item Value Reference Range Interpretation Comments B/C Ratio (test code = B/C Ratio) 18 6-25 [facility] BranchDpimtzaCZASJOTYGDKU7104-14-11 18:46:00 Test Item Value Reference Range Interpretation Comments A/G Ratio (test code = A/G Ratio) 1.1 0.7-1.6 [facility] BranchLozzyplVWZQQRNWKMDV5867-09-70 18:46:00 Test Item Value Reference Range Interpretation Comments Globulin (test code = Globulin) 3.3 2.0-4.0 [facility] BranchEbagvqfFWGCJAQLORDA8325-36-53 18:46:00 Test Item Value Reference Range Interpretation Comments eGFR (test code = eGFR) 99 [facility] BranchHyhwhdnEIENKPWHQJZE3728-77-26 18:46:00 Test Item Value Reference Range Interpretation Comments Calcium Lvl (test code = Calcium Lvl) 9.0 8.5-10.5 [facility] BranchHblvfpgGRPUQIYMXSDG3437-78-68 18:46:00 Test Item Value Reference Range Interpretation Comments Chloride Lvl (test code = Chloride Lvl) 106 95-109 [facility] BranchPztaaveENSARRDYJNKJ3369-38-11 18:46:00 Test Item Value Reference Range Interpretation Comments Creatinine Lvl (test code = Creatinine 0.9 0.5-1.4 Lvl) [facility] BranchHkasofyEBBHFJNYGBYG4414-26-55 18:46:00 Test Item Value Reference Range Interpretation Comments Potassium Lvl (test code = Potassium 4.2 3.5-5.1 Lvl) [facility] BranchFaylwozBORSQMKHYIBU5528-35-12 18:46:00 Test Item Value Reference Range Interpretation Comments Sodium Lvl (test code = Sodium Lvl) 139 135-145 [facility] BranchInsjxajBBBLPDWYCYIA4505-77-11 18:46:00 Test Item Value Reference Range Interpretation Comments CO2 (test code = CO2) 24 24-32 [facility] BranchGjmsxcqSIZNVJAXNNGY8539-31-99 18:46:00 Test Item Value Reference Range Interpretation Comments BUN (test code = BUN) 16 7-22 [facility] BranchKrxsogeFSFRXEPORYTA1259-01-14 18:46:00 Test Item Value Reference Range Interpretation Comments Glucose Lvl (test code = Glucose Lvl) 141 70-99 [facility] BranchDanlpdvIYIRTKJUUJUC8569-63-97 18:46:00 Test Item Value Reference Range Interpretation Comments Albumin Lvl (test code = Albumin Lvl) 3.6 3.5-5.0 [facility] BranchTffoxfqRSFZTZEKDDXH9470-33-16 18:46:00 Test Item Value Reference Range Interpretation Comments Alk Phos (test code = Alk Phos) 65 39-136 [facility] BranchVmkvevwGWHAUPTNDGMV7830-69-63 18:46:00 Test Item Value Reference Range Interpretation Comments Bili Total (test code = Bili Total) 0.3 0.2-1.3 [facility] BranchJmzzfueXZOOWTCYOBPK8280-05-41 18:46:00 Test Item Value Reference Range Interpretation Comments ALT (test code = ALT) 100 See_Comment [Auto mated message] The system which ge nerated this result transmit elizabeth reference range : <=65. The reference range was not used to interpr et this result as margaret l/abnormal. [facility] BranchVuieeyhLOJZTVPRXKDI1645-33-51 18:46:00 Test Item Value Reference Range Interpretation Comments AST (test code = AST) 53 See_Comment [Auto mated message] The system which ge nerated this result transmit elizabeth reference range : <=37. The reference range was not used to interpr et this result as margaret l/abnormal. [facility] BranchVuskunnDFYIYDEKPZGF4298-19-11 18:46:00 Test Item Value Reference Range Interpretation Comments Total Protein (test code = Total 6.9 6.4-8.4 Protein) [facility]viewEgrwsyvKRULOIHNXI1256-91-28 18:46:00 Test Item Value Reference Range Interpretation Comments Eosinophils (test code = 4.2 See_Comment [A utomated message] The Eosinophils) system which ge nerated this result tra nsmitted reference range : <=4.0. The reference r mitra was not used to int erpret this result as normal/abnormal . [facility] LongviewWtfacmwJYEWXZKRRZ1524-46-23 18:46:00 Test Item Value Reference Range Interpretation Comments Segs (test code = Segs) 56.4 45.0-75.0 [facility] LongviewLfbkryaXBGFAHGPIV3569-16-01 18:46:00 Test Item Value Reference Range Interpretation Comments Monocytes (test code = Monocytes) 10.3 2.0-12.0 [facility] LongviewMtpuwtyMMFJTHHUIU8342-34-01 18:46:00 Test Item Value Reference Range Interpretation Comments Lymphocytes (test code = Lymphocytes) 28.0 20.0-40.0 [facility] LongviewMcjvyyyZNQQTYKXIU4674-23-38 18:46:00 Test Item Value Reference Range Interpretation Comments Monocytes # (test code 0.5 See_Comment [Aut omated message] The = Monocytes #) system which generated this result tra nsmitted reference range : <=0.8. The reference r mitra was not used to int erpret this result as normal/abnormal . [facility] LongviewTofghgkLFAHMCLMXC1692-26-31 18:46:00 Test Item Value Reference Range Interpretation Comments Basophils (test code = 1.1 See_Comment [Aut omated message] The Basophils) system which ge nerated this result tra nsmitted reference range : <=1.0. The reference r mitra was not used to int erpret this result as normal/abnormal . [facility] LongviewNktwkvwPNRKRWCORQ4967-13-50 18:46:00 Test Item Value Reference Range Interpretation Comments Lymphocytes # (test code = Lymphocytes 1.5 1.0-5.5 #) [facility] LongviewLihsqujFDGXNJUPQT2105-70-83 18:46:00 Test Item Value Reference Range Interpretation Comments Segs-Bands # (test code = Segs-Bands #) 2.9 1.5-8.1 [facility] LongviewGljvhghBZXQAQWRLV0161-26-86 18:46:00 Test Item Value Reference Range Interpretation Comments Eosinophils # (test code 0.2 See_Comment [A utomated message] The = Eosinophils #) system whic h generated this result tra nsmitted reference range : <=0.5. The reference r mitra was not used to int erpret this result as normal/abnormal . [facility] LongviewOdooleeAYBHRUKUQE3859-54-27 18:46:00 Test Item Value Reference Range Interpretation Comments Basophils # (test code 0.1 See_Comment [Aut omated message] The = Basophils #) system which generated this result tra nsmitted reference range : <=0.2. The reference r mitra was not used to int erpret this result as normal/abnormal . [facility] LongviewAbjlmyaPNOCAVTYOW2380-47-64 18:46:00 Test Item Value Reference Range Interpretation Comments PT (test code = PT) 11.2 s 12.0-14.7 [facility]viewEsqpxqzPCOWDLLKQA3204-50-30 18:46:00 Test Item Value Reference Range Interpretation Comments INR (test code = INR) 0.82 0.85-1.17 [facility] LongviewJlsvnvrZJHNPEZNAA0743-71-35 18:46:00 Test Item Value Reference Range Interpretation Comments PTT (test code = PTT) 28.6 s 22.9-35.8 [facility] LongviewTewsqwoVZTWQPIOTH5337-72-09 18:46:00 Test Item Value Reference Range Interpretation Comments MPV (test code = MPV) 8.1 7.4-10.4 [facility] LongviewWgfkuvkVYUCTADTYD9426-02-54 18:46:00 Test Item Value Reference Range Interpretation Comments Platelet (test code = Platelet) 301 133-450 [facility] LongviewWfuzorsKVXBMDWDQA5532-20-05 18:46:00 Test Item Value Reference Range Interpretation Comments RDW (test code = RDW) 14.5 11.5-14.5 [facility] LongviewAisnmfzAIOJXKSZEZ7472-47-49 18:46:00 Test Item Value Reference Range Interpretation Comments RBC (test code = RBC) 4.84 4.70-6.10 [facility] LongviewJqgirupCKTGDPHZJU9898-13-39 18:46:00 Test Item Value Reference Range Interpretation Comments Hgb (test code = Hgb) 14.4 14.0-18.0 [facility] LongviewGxvbreiAMYYNPRZLA7574-16-80 18:46:00 Test Item Value Reference Range Interpretation Comments WBC (test code = WBC) 5.2 3.7-10.4 [facility] LongviewXgbfsdrKVPYUEWBFI4226-11-47 18:46:00 Test Item Value Reference Range Interpretation Comments MCH (test code = MCH) 29.8 pg 27.0-31.0 [facility] HospitalBcgtudwRKZANAHRZJ9945-53-96 18:46:00 Test Item Value Reference Range Interpretation Comments MCV (test code = MCV) 92.0 80.0-94.0 [facility] HospitalVlhfiuoJDFMJKFWQP2379-51-72 18:46:00 Test Item Value Reference Range Interpretation Comments Hct (test code = Hct) 44.5 42.0-54.0 [facility] HospitalHyohyfzDWXFBUJYMS9479-85-78 18:46:00 Test Item Value Reference Range Interpretation Comments MCHC (test code = MCHC) 32.4 32.0-36.[address] [facility] [address] CenterMlumwurOAHVMVPOPZ9419-22-22 18:46:00 Test Item Value Reference Range Interpretation Comments [place]-Hep C Ab (test Negative *NA*(07/22/14 code = [place]-Hep C 1:46 PM) Ab) [facility] AND [id number] 18:46:00 Test Item Value Reference Range Interpretation Comments UA Urobilinogen (test code = UA <=1.0 mg/dL 0.1-1.0 Urobilinogen) [facility] AND [id number] 18:46:00 Test Item Value Reference Range Interpretation Comments UA Sq Epi (test code = UA Sq Epi) None Seen [facility] AND [id number] 18:46:00 Test Item Value Reference Range Interpretation Comments UA Leuk Est (test Negative (07/22/14 1:46 code = UA Leuk Est) PM) [facility] AND [id number] 18:46:00 Test Item Value Reference Range Interpretation Comments UA Nitrite (test code Negative (07/22/14 1:46 = UA Nitrite) PM) [facility] AND [id number] 18:46:00 Test Item Value Reference Range Interpretation Comments UA Blood (test code = Negative (07/22/14 1:46 UA Blood) PM) [facility] AND [id number] 18:46:00 Test Item Value Reference Range Interpretation Comments UA Ketones (test code = UA Negative mg/dL Ketones) [facility] AND [id number] 18:46:00 Test Item Value Reference Range Interpretation Comments UA Bili (test code = Negative *NA*(07/22/14 UA Bili) 1:46 PM) [facility] AND [id number] 18:46:00 Test Item Value Reference Range Interpretation Comments UA Bacteria (test code = UA Occasional /HPF Bacteria) [facility] AND [id number] 18:46:00 Test Item Value Reference Range Interpretation Comments UA RBC (test code = no gt See_Comment [Automa elizabeth message] The UA RBC) system which ge nerated this result transmit elizabeth reference range : <=2. The reference range was not used to interpr et this result as margaret l/abnormal. [facility] AND [id number] 18:46:00 Test Item Value Reference Range Interpretation Comments UA WBC (test code = 1 See_Comment [Automa elizabeth message] The UA WBC) system which ge nerated this result transmit elizabeth reference range : <=5. The reference range was not used to interpr et this result as margaret l/abnormal. [facility] [id number] 18:46:00 Test Item Value Reference Range Interpretation Comments UA Glucose (test code = UA Glucose) 30 mg/dL [facility] AND [id number] 18:46:00 Test Item Value Reference Range Interpretation Comments UA Protein (test code = UA Negative mg/dL Protein) [facility] AND [id number] 18:46:00 Test Item Value Reference Range Interpretation Comments UA pH (test code = UA pH) 6.5 5.0-8.0 [facility] AND [id number] 18:46:00 Test Item Value Reference Range Interpretation Comments UA Turbidity (test code = Clear (07/22/14 1:46 UA Turbidity) PM) [facility] AND [id number] 18:46:00 Test Item Value Reference Range Interpretation Comments UA Spec Grav (test code = UA Spec Grav) 1.010 [facility] [id number] 18:46:00 Test Item Value Reference Range Interpretation Comments UA Color (test code = Light Yellow UA Color) *NA*(07/22/14 1:46 PM) [facility]CHE[facility] [id number] 18:46:00 Test Item Value Reference Range Interpretation Comments Magnesium Lvl (test code = Magnesium 1.8 1.8-2.4 Lvl) [facility] BranchEnwiuqvTXPUHYYIDTKG6845-08-44 18:46:00 Test Item Value Reference Range Interpretation Comments AGAP (test code = AGAP) 13.2 10.0-20.0 [facility] BranchTwvtmzeKEPKIUVTCSBU0316-71-14 18:46:00 Test Item Value Reference Range Interpretation Comments B/C Ratio (test code = B/C Ratio) 18 6-25 [facility] BranchJruyniiCJQXMINNMPHA9489-41-78 18:46:00 Test Item Value Reference Range Interpretation Comments A/G Ratio (test code = A/G Ratio) 1.1 0.7-1.6 [facility] BranchPkupjdyCDADNFLCQIUP1837-33-73 18:46:00 Test Item Value Reference Range Interpretation Comments Globulin (test code = Globulin) 3.3 2.0-4.0 [facility] BranchAyovtlqZTYLTASHCPCX9290-05-42 18:46:00 Test Item Value Reference Range Interpretation Comments eGFR (test code = eGFR) 99 [facility] BranchEnsydfwSNHJRMFHCNJP3089-24-35 18:46:00 Test Item Value Reference Range Interpretation Comments Calcium Lvl (test code = Calcium Lvl) 9.0 8.5-10.5 [facility] BranchGsjslnpXZJVZQOFFSTR7158-60-73 18:46:00 Test Item Value Reference Range Interpretation Comments Chloride Lvl (test code = Chloride Lvl) 106 95-109 [facility] BranchXhoxbixBKQYZPEGCQWW6967-55-27 18:46:00 Test Item Value Reference Range Interpretation Comments Creatinine Lvl (test code = Creatinine 0.9 0.5-1.4 Lvl) [facility] BranchUhmbiakEWQHNQTJBHFF2379-56-61 18:46:00 Test Item Value Reference Range Interpretation Comments Potassium Lvl (test code = Potassium 4.2 3.5-5.1 Lvl) [facility] BranchAzcfycvQUWDEWAVJYHJ5115-28-01 18:46:00 Test Item Value Reference Range Interpretation Comments Sodium Lvl (test code = Sodium Lvl) 139 135-145 [facility] BranchTousywoARVQTCEVBDTX8023-03-18 18:46:00 Test Item Value Reference Range Interpretation Comments CO2 (test code = CO2) 24 24-32 [facility] BranchGvtravpTQNBIMCBISBH2345-00-16 18:46:00 Test Item Value Reference Range Interpretation Comments BUN (test code = BUN) 16 7-22 [facility] BranchKsnsoakNSKYWVDONYRP9511-43-32 18:46:00 Test Item Value Reference Range Interpretation Comments Glucose Lvl (test code = Glucose Lvl) 141 70-99 [facility] BranchYiratzjKUAWFPJBDJXV9376-20-02 18:46:00 Test Item Value Reference Range Interpretation Comments Albumin Lvl (test code = Albumin Lvl) 3.6 3.5-5.0 [facility] BranchLnqnrbqRJOUIPYXOPXQ9116-22-46 18:46:00 Test Item Value Reference Range Interpretation Comments Alk Phos (test code = Alk Phos) 65 39-136 [facility] BranchWzdeotjXWSPDCLXXOHY1509-07-30 18:46:00 Test Item Value Reference Range Interpretation Comments Bili Total (test code = Bili Total) 0.3 0.2-1.3 [facility] BranchOmfllieTRJJZSXXAZDL0366-47-19 18:46:00 Test Item Value Reference Range Interpretation Comments ALT (test code = ALT) 100 See_Comment [Auto mated message] The system which ge nerated this result transmit elizabeth reference range : <=65. The reference range was not used to interpr et this result as margaret l/abnormal. [facility] BranchFuzpoalMLZKSLTHJKIT5626-39-79 18:46:00 Test Item Value Reference Range Interpretation Comments AST (test code = AST) 53 See_Comment [Auto mated message] The system which ge nerated this result transmit elizabeth reference range : <=37. The reference range was not used to interpr et this result as margaret l/abnormal. [facility] BranchGzfddysBEXLEFMACTLO2348-63-25 18:46:00 Test Item Value Reference Range Interpretation Comments Total Protein (test code = Total 6.9 6.4-8.4 Protein) [facility]viewJicyqjfOEBLYLFBVC6519-17-92 18:46:00 Test Item Value Reference Range Interpretation Comments Eosinophils (test code = 4.2 See_Comment [A utomated message] The Eosinophils) system which ge nerated this result tra nsmitted reference range : <=4.0. The reference r mitra was not used to int erpret this result as normal/abnormal . [facility]viewOyysyniXOFQBRVHCY8687-09-19 18:46:00 Test Item Value Reference Range Interpretation Comments Segs (test code = Segs) 56.4 45.0-75.0 [facility] LongviewUrnshkySPOKNWTMEQ3813-28-01 18:46:00 Test Item Value Reference Range Interpretation Comments Monocytes (test code = Monocytes) 10.3 2.0-12.0 [facility]viewOycwxsdWJAKLZWJWY8466-90-21 18:46:00 Test Item Value Reference Range Interpretation Comments Lymphocytes (test code = Lymphocytes) 28.0 20.0-40.0 [facility] LongviewQcnegxfFNZRNNQVJC9406-14-21 18:46:00 Test Item Value Reference Range Interpretation Comments Monocytes # (test code 0.5 See_Comment [Aut omated message] The = Monocytes #) system which generated this result tra nsmitted reference range : <=0.8. The reference r mitra was not used to int erpret this result as normal/abnormal . [facility] LongviewUqgoegtXTISLDWFWU5172-77-12 18:46:00 Test Item Value Reference Range Interpretation Comments Basophils (test code = 1.1 See_Comment [Aut omated message] The Basophils) system which ge nerated this result tra nsmitted reference range : <=1.0. The reference r mitra was not used to int erpret this result as normal/abnormal . [facility]viewQwxawwkNMUUBYQZZP9158-00-24 18:46:00 Test Item Value Reference Range Interpretation Comments Lymphocytes # (test code = Lymphocytes 1.5 1.0-5.5 #) [facility] LongviewIpxaxbiELTQILORPL2653-37-86 18:46:00 Test Item Value Reference Range Interpretation Comments Segs-Bands # (test code = Segs-Bands #) 2.9 1.5-8.1 [facility] LongviewUcirkmsYYUEXLTANS0230-14-21 18:46:00 Test Item Value Reference Range Interpretation Comments Eosinophils # (test code 0.2 See_Comment [A utomated message] The = Eosinophils #) system ic h generated this result tra nsmitted reference range : <=0.5. The reference r mitra was not used to int erpret this result as normal/abnormal . [facility] LongviewTecuntfUITWCPOURC7312-92-98 18:46:00 Test Item Value Reference Range Interpretation Comments Basophils # (test code 0.1 See_Comment [Aut omated message] The = Basophils #) system which generated this result tra nsmitted reference range : <=0.2. The reference r mitra was not used to int erpret this result as normal/abnormal . [facility] LongviewSrjhduzAMAMWTJBMQ2080-11-24 18:46:00 Test Item Value Reference Range Interpretation Comments PT (test code = PT) 11.2 s 12.0-14.7 [facility]LpkkbdiPZYKNSGWCQ5213-62-04 18:46:00 Test Item Value Reference Range Interpretation Comments INR (test code = INR) 0.82 0.85-1.17 [facility]viewPpttltxQMKHBPTWEW6800-65-54 18:46:00 Test Item Value Reference Range Interpretation Comments PTT (test code = PTT) 28.6 s 22.9-35.8 [facility]viewVbgufjwTFKDJGTBGJ1924-09-79 18:46:00 Test Item Value Reference Range Interpretation Comments MPV (test code = MPV) 8.1 7.4-10.4 [facility]viewAutraztOHFPLNZXTX2120-30-81 18:46:00 Test Item Value Reference Range Interpretation Comments Platelet (test code = Platelet) 301 133-450 [facility]viewEzptakoSLFFJSPITA7875-12-88 18:46:00 Test Item Value Reference Range Interpretation Comments RDW (test code = RDW) 14.5 11.5-14.5 [facility]viewFgphahlFGVKQVWSNE9090-29-03 18:46:00 Test Item Value Reference Range Interpretation Comments RBC (test code = RBC) 4.84 4.70-6.10 [facility]viewRkohhceATNLJEDAJW4264-61-30 18:46:00 Test Item Value Reference Range Interpretation Comments Hgb (test code = Hgb) 14.4 14.0-18.0 [facility]viewPyfsgttLMCIRHXIHB2215-39-15 18:46:00 Test Item Value Reference Range Interpretation Comments WBC (test code = WBC) 5.2 3.7-10.4 [facility]viewXugyvpgERNZRSZTYN4147-48-45 18:46:00 Test Item Value Reference Range Interpretation Comments MCH (test code = MCH) 29.8 pg 27.0-31.0 [facility]viewNfxeoguESJWPHAMTV7765-21-30 18:46:00 Test Item Value Reference Range Interpretation Comments MCV (test code = MCV) 92.0 80.0-94.0 [facility]viewBroccypDENUIUWXDQ5742-88-88 18:46:00 Test Item Value Reference Range Interpretation Comments Hct (test code = Hct) 44.5 42.0-54.0 [facility]viewNrglclgYOXZQEOZJK0624-17-93 18:46:00 Test Item Value Reference Range Interpretation Comments MCHC (test code = MCHC) 32.4 32.0-36.0 [facility] AcpqlqtCVJZULUILP0098-96-41 18:46:00 Test Item Value Reference Range Interpretation Comments [place]-Hep C Ab (test Negative *NA*(07/22/14 code = [place]-Hep C 1:46 PM) Ab) [facility] AND [id number] 18:46:00 Test Item Value Reference Range Interpretation Comments UA Urobilinogen (test code = UA <=1.0 mg/dL 0.1-1.0 Urobilinogen) [facility] AND [id number] 18:46:00 Test Item Value Reference Range Interpretation Comments UA Sq Epi (test code = UA Sq Epi) None Seen [facility] AND [id number] 18:46:00 Test Item Value Reference Range Interpretation Comments UA Leuk Est (test Negative (07/22/14 1:46 code = UA Leuk Est) PM) [facility] AND [id number] 18:46:00 Test Item Value Reference Range Interpretation Comments UA Nitrite (test code Negative (07/22/14 1:46 = UA Nitrite) PM) [facility] AND [id number] 18:46:00 Test Item Value Reference Range Interpretation Comments UA Blood (test code = Negative (07/22/14 1:46 UA Blood) PM) [facility] AND [id number] 18:46:00 Test Item Value Reference Range Interpretation Comments UA Ketones (test code = UA Negative mg/dL Ketones) [facility] AND [id number] 18:46:00 Test Item Value Reference Range Interpretation Comments UA Bili (test code = Negative *NA*(07/22/14 UA Bili) 1:46 PM) [facility] AND [id number] 18:46:00 Test Item Value Reference Range Interpretation Comments UA Bacteria (test code = UA Occasional /HPF Bacteria) [facility] AND [id number] 18:46:00 Test Item Value Reference Range Interpretation Comments UA RBC (test code = no gt See_Comment [Automa elizabeth message] The UA RBC) system which ge nerated this result transmit elizabeth reference range : <=2. The reference range was not used to interpr et this result as margaret l/abnormal. [facility] AND [id number] 18:46:00 Test Item Value Reference Range Interpretation Comments UA WBC (test code = 1 See_Comment [Automa elizabeth message] The UA WBC) system which ge nerated this result transmit elizabeth reference range : <=5. The reference range was not used to interpr et this result as margaret l/abnormal. [facility] AND [id number] 18:46:00 Test Item Value Reference Range Interpretation Comments UA Glucose (test code = UA Glucose) 30 mg/dL [facility] AND [id number] 18:46:00 Test Item Value Reference Range Interpretation Comments UA Protein (test code = UA Negative mg/dL Protein) [facility] AND [id number] 18:46:00 Test Item Value Reference Range Interpretation Comments UA pH (test code = UA pH) 6.5 5.0-8.0 [facility] AND [id number] 18:46:00 Test Item Value Reference Range Interpretation Comments UA Turbidity (test code = Clear (07/22/14 1:46 UA Turbidity) PM) [facility] AND [id number] 18:46:00 Test Item Value Reference Range Interpretation Comments UA Spec Grav (test code = UA Spec Grav) 1.010 [facility] AND [id number] 18:46:00 Test Item Value Reference Range Interpretation Comments UA Color (test code = Light Yellow UA Color) *NA*(07/22/14 1:46 PM) [facility] [id number] 18:46:00 Test Item Value Reference Range Interpretation Comments Magnesium Lvl (test code = Magnesium 1.8 1.8-2.4 Lvl) [facility]GhwjxmiTPYVRMFZCYMX0133-61-13 18:46:00 Test Item Value Reference Range Interpretation Comments AGAP (test code = AGAP) 13.2 10.0-20.0 [facility]YsuxynpTSQWXSMPHPNA6101-25-57 18:46:00 Test Item Value Reference Range Interpretation Comments B/C Ratio (test code = B/C Ratio) 18 6-25 [facility] BranchBitsacmWPHPMWGVTTDF0399-22-06 18:46:00 Test Item Value Reference Range Interpretation Comments A/G Ratio (test code = A/G Ratio) 1.1 0.7-1.6 [facility] BranchXxkpwpgRRSIHRWRPMZW0498-17-46 18:46:00 Test Item Value Reference Range Interpretation Comments Globulin (test code = Globulin) 3.3 2.0-4.0 [facility] BranchVyxutlbAZRRYUNTGKHN0640-06-95 18:46:00 Test Item Value Reference Range Interpretation Comments eGFR (test code = eGFR) 99 [facility] BranchRzxsdehLWDXNVFUVPRZ1260-23-69 18:46:00 Test Item Value Reference Range Interpretation Comments Calcium Lvl (test code = Calcium Lvl) 9.0 8.5-10.5 [facility] BranchTasuppkJFFVIRFHKAUQ3819-99-99 18:46:00 Test Item Value Reference Range Interpretation Comments Chloride Lvl (test code = Chloride Lvl) 106 95-109 [facility] BranchLnpsrioNLCXBRPQEXKV9612-57-55 18:46:00 Test Item Value Reference Range Interpretation Comments Creatinine Lvl (test code = Creatinine 0.9 0.5-1.4 Lvl) [facility] BranchPxrzxzdDFUFLXHMQBFC4860-53-05 18:46:00 Test Item Value Reference Range Interpretation Comments Potassium Lvl (test code = Potassium 4.2 3.5-5.1 Lvl) [facility] BranchPwpziffJLVBMBXANVVU6771-00-68 18:46:00 Test Item Value Reference Range Interpretation Comments Sodium Lvl (test code = Sodium Lvl) 139 135-145 [facility] BranchIcyuxbiJTASNNQQHJOF4410-38-85 18:46:00 Test Item Value Reference Range Interpretation Comments CO2 (test code = CO2) 24 24-32 [facility] BranchRtktukmCKLYZWIRWQGC9344-92-20 18:46:00 Test Item Value Reference Range Interpretation Comments BUN (test code = BUN) 16 7-22 [facility] BranchQpdqobpXOLHCIARYJVU1211-37-72 18:46:00 Test Item Value Reference Range Interpretation Comments Glucose Lvl (test code = Glucose Lvl) 141 70-99 [facility] BranchLgglxctLRIONXFRWSKV7193-25-51 18:46:00 Test Item Value Reference Range Interpretation Comments Albumin Lvl (test code = Albumin Lvl) 3.6 3.5-5.0 [facility] BranchSswaztiYOVRTTPHQTJM7422-66-71 18:46:00 Test Item Value Reference Range Interpretation Comments Alk Phos (test code = Alk Phos) 65 39-136 [facility] BranchGmrmocdHEELHUPPHEKB7125-71-35 18:46:00 Test Item Value Reference Range Interpretation Comments Bili Total (test code = Bili Total) 0.3 0.2-1.3 [facility] BranchUkscanjQPBAVCBMGBIB4508-29-76 18:46:00 Test Item Value Reference Range Interpretation Comments ALT (test code = ALT) 100 See_Comment [Auto mated message] The system which ge nerated this result transmit elizabeth reference range : <=65. The reference range was not used to interpr et this result as margaret l/abnormal. [facility] BranchXedsilyXUYOZKAGURMS4651-58-19 18:46:00 Test Item Value Reference Range Interpretation Comments AST (test code = AST) 53 See_Comment [Auto mated message] The system which ge nerated this result transmit elizabeth reference range : <=37. The reference range was not used to interpr et this result as margaret l/abnormal. [facility] BranchCipmpdlHSVVWELRCIMO1419-30-52 18:46:00 Test Item Value Reference Range Interpretation Comments Total Protein (test code = Total 6.9 6.4-8.4 Protein) [facility]viewPtoeuecZRPFPFJYNV2894-11-81 18:46:00 Test Item Value Reference Range Interpretation Comments Eosinophils (test code = 4.2 See_Comment [A utomated message] The Eosinophils) system which ge nerated this result tra nsmitted reference range : <=4.0. The reference r mitra was not used to int erpret this result as normal/abnormal . [facility]viewHfztfjcZNNQVAYXQK2575-56-33 18:46:00 Test Item Value Reference Range Interpretation Comments Segs (test code = Segs) 56.4 45.0-75.0 [facility]viewUhoecncULZOEIZYTI8589-50-72 18:46:00 Test Item Value Reference Range Interpretation Comments Monocytes (test code = Monocytes) 10.3 2.0-12.0 [facility]viewPoiqbqxLDITFGWZVS7312-43-24 18:46:00 Test Item Value Reference Range Interpretation Comments Lymphocytes (test code = Lymphocytes) 28.0 20.0-40.0 [facility]viewSuhapmvWJXCUJZBRG3898-80-17 18:46:00 Test Item Value Reference Range Interpretation Comments Monocytes # (test code 0.5 See_Comment [Aut omated message] The = Monocytes #) system which generated this result tra nsmitted reference range : <=0.8. The reference r mitra was not used to int erpret this result as normal/abnormal . [facility]viewKahpfhbVVKDDFRHYP1918-44-45 18:46:00 Test Item Value Reference Range Interpretation Comments Basophils (test code = 1.1 See_Comment [Aut omated message] The Basophils) system which ge nerated this result tra nsmitted reference range : <=1.0. The reference r mitra was not used to int erpret this result as normal/abnormal . [facility]viewBidznwbHNDUPXZSDK1601-25-29 18:46:00 Test Item Value Reference Range Interpretation Comments Lymphocytes # (test code = Lymphocytes 1.5 1.0-5.5 #) [facility]viewJetpfryETUZLZAXJU3925-22-15 18:46:00 Test Item Value Reference Range Interpretation Comments Segs-Bands # (test code = Segs-Bands #) 2.9 1.5-8.1 [facility]viewJykpjzjUQZWAQVLXG1260-88-47 18:46:00 Test Item Value Reference Range Interpretation Comments Eosinophils # (test code 0.2 See_Comment [A utomated message] The = Eosinophils #) system whic h generated this result tra nsmitted reference range : <=0.5. The reference r mitra was not used to int erpret this result as normal/abnormal . [facility]viewVivnuipZMINFKMWZP1079-70-99 18:46:00 Test Item Value Reference Range Interpretation Comments Basophils # (test code 0.1 See_Comment [Aut omated message] The = Basophils #) system which generated this result tra nsmitted reference range : <=0.2. The reference r mitra was not used to int erpret this result as normal/abnormal . [facility]viewHwljtacHWZHOCGAAL7340-25-74 18:46:00 Test Item Value Reference Range Interpretation Comments PT (test code = PT) 11.2 s 12.0-14.7 [facility]viewAzxvnlnHFQHGKNDID7967-13-24 18:46:00 Test Item Value Reference Range Interpretation Comments INR (test code = INR) 0.82 0.85-1.17 [facility]viewMboaihnFXQVUAQJTB7358-97-34 18:46:00 Test Item Value Reference Range Interpretation Comments PTT (test code = PTT) 28.6 s 22.9-35.8 [facility]viewZwnhbziMINGLUNEYN3468-45-44 18:46:00 Test Item Value Reference Range Interpretation Comments MPV (test code = MPV) 8.1 7.4-10.4 [facility]viewYhghxonYBIMOOBQKF7163-81-45 18:46:00 Test Item Value Reference Range Interpretation Comments Platelet (test code = Platelet) 301 133-450 [facility]viewOsariisXASKPQUFGF6865-10-25 18:46:00 Test Item Value Reference Range Interpretation Comments RDW (test code = RDW) 14.5 11.5-14.5 [facility]viewYnitrhmHDTCQJBZKE3720-48-17 18:46:00 Test Item Value Reference Range Interpretation Comments RBC (test code = RBC) 4.84 4.70-6.10 [facility]viewIadlxeoMVKCSPNZMD1502-90-05 18:46:00 Test Item Value Reference Range Interpretation Comments Hgb (test code = Hgb) 14.4 14.0-18.0 [facility]viewVendileTWCMAWENGQ5182-76-98 18:46:00 Test Item Value Reference Range Interpretation Comments WBC (test code = WBC) 5.2 3.7-10.4 [facility]viewKpuzllaQDWZUACKAA3559-48-59 18:46:00 Test Item Value Reference Range Interpretation Comments MCH (test code = MCH) 29.8 pg 27.0-31.0 [facility]viewVwovnldALXKHEOTZN7520-19-37 18:46:00 Test Item Value Reference Range Interpretation Comments MCV (test code = MCV) 92.0 80.0-94.0 [facility]viewZueuafaPZUGFJMPHQ3721-34-07 18:46:00 Test Item Value Reference Range Interpretation Comments Hct (test code = Hct) 44.5 42.0-54.0 [facility]viewOvorgswKFKWIDXBRG2410-60-08 18:46:00 Test Item Value Reference Range Interpretation Comments MCHC (test code = MCHC) 32.4 32.0-36.0 [facility]WsmguttKCWWVAYFTW6443-73-25 18:46:00 Test Item Value Reference Range Interpretation Comments [place]-Hep C Ab (test Negative *NA*(07/22/14 code = [place]-Hep C 1:46 PM) Ab) [facility] AND [id number] 18:46:00 Test Item Value Reference Range Interpretation Comments UA Urobilinogen (test code = UA <=1.0 mg/dL 0.1-1.0 Urobilinogen) [facility] AND [id number] 18:46:00 Test Item Value Reference Range Interpretation Comments UA Sq Epi (test code = UA Sq Epi) None Seen [facility] AND [id number] 18:46:00 Test Item Value Reference Range Interpretation Comments UA Leuk Est (test Negative (07/22/14 1:46 code = UA Leuk Est) PM) [facility] AND [id number] 18:46:00 Test Item Value Reference Range Interpretation Comments UA Nitrite (test code Negative (07/22/14 1:46 = UA Nitrite) PM) [facility] AND [id number] 18:46:00 Test Item Value Reference Range Interpretation Comments UA Blood (test code = Negative (07/22/14 1:46 UA Blood) PM) [facility] AND [id number] 18:46:00 Test Item Value Reference Range Interpretation Comments UA Ketones (test code = UA Negative mg/dL Ketones) [facility] AND [id number] 18:46:00 Test Item Value Reference Range Interpretation Comments UA Bili (test code = Negative *NA*(07/22/14 UA Bili) 1:46 PM) [facility] AND [id number] 18:46:00 Test Item Value Reference Range Interpretation Comments UA Bacteria (test code = UA Occasional /HPF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 DVT with IVC filter. MD SHUBHAM Fuller/ANUJ TD: 12/25/2016 02:45 CC:Ramana Shea MD Edited by: Jose David Mcdermott MD On 12/30/2016 04:08 PM METALIZING MACHINE OPERATOR Electronically Authenticated and Edited by: Jose David Mcdermott MD On 12/30/2016 04:09 PM METALIZING MACHINE OPERATOR [facility] History and Physical medical conditions including the patient's repor elizabeth history of DVT with IVC filter. MD SHUBHAM Fuller/ANUJ TD: 12/25/2016 02:45 CC:Ramana Shea MD Edited by: Jose David Mcdermott MD On 12/30/2016 04:08 PM METALIZING MACHINE OPERATOR Electronically Authenticated and Edited by: Jose David Mcdermott MD On 12/30/2016 04:09 PM METALIZING MACHINE OPERATOR Electronically Authenticated by: Ramana Shea MD On 01/05/2017 07:48 PM METALIZING MACHINE OPERATOR
[2022-07-11] MEDS ORDERED: HALOPERIDOL LACT 5 MG/ML INJ ONE (17:54)
[2022-07-11] MEDS ORDERED: WATER FOR INJ,STERILE 10 ML ONE (18:06)
[2022-07-11] MEDS ORDERED: ZIPRASIDONE MESYLA 20 MG/VIAL IM ONE (18:06)
[2022-07-11 18:37] LABS: Hematocrit 28.6 % (39.6-49.0); Lymphocytes % 15.8 % (15.3-44.8); MCV 86.1 fL (80-100); MPV 7.1 fL (7.6-11.3); RBC Red Blood Cell Count 3.32 M/uL (4.33-5.43)
[2022-07-11] MEDS ORDERED: ONDANSETRON 4 MG/2 ML VIAL ONE (18:37)
[2022-07-11] MEDS ORDERED: MIDAZOLAM HCL 2 MG/2 ML INJ ONE (18:53)
[2022-07-11 19:02] LABS: Albumin 3.6 g/dL (3.4-5.0); Bilirubin Total 0.3 mg/dL (0.2-1.0); Protein, Total 7.3 g/dL (6.4-8.2); Troponin High Sensitivity 6.5 pg/mL (<58.9)
[2022-07-11 19:03] LABS: Potassium 3.9 mEq/L (3.5-5.1)
--- NOTE | 2022-07-11 19:07 | RAD REPORT ---
EXAM DESCRIPTION: RAD - Chest Single View - 07/11/2022 7:02 pm CLINICAL HISTORY: CHEST PAIN COMPARISON: Chest Single View dated 06/20/2022; Chest Single View dated 12/02/2020; CHEST SINGLE VIEW dated 08/14/2013; CHEST SINGLE VIEW dated 05/12/2013 FINDINGS: Lines: None. Lungs: No evidence of edema or pneumonia. Pleural: No significant pleural effusions or pneumothorax. Cardiac: The heart size is within normal limits. Mediastinum: Within normal limits. Bones: No acute fractures. Other: None IMPRESSION: No acute cardiopulmonary disease.
[2022-07-11] MEDS ORDERED: NA CHLORIDE 0.9% 500 ML ONE (19:26)
--- NOTE | 2022-07-11 20:54 | RAD REPORT ---
EXAM DESCRIPTION: CT - Head Brain Wo Cont - 07/11/2022 8:43 pm CLINICAL HISTORY: MENTAL STATUS CHANGE COMPARISON: Head Brain Wo Cont dated 06/20/2022 TECHNIQUE: All CT scans are performed using dose optimization technique as appropriate and may inclu de automated exposure control or mA/KV adjustment according to patient size. FINDINGS: No intracranial hemorrhage, hydrocephalus or extra-axial fluid collection.No areas of brai n edema or evidence of midline shift. Mucous retention cysts in maxillary sinuses. The paranasal sinuses and mastoids are clear. The calvarium is intact. IMPRESSION: No acute intracranial abnormality.
[2022-07-11 22:54] LABS: Troponin High Sensitivity 7.4 pg/mL (<58.9)
[2022-07-12] MEDS ORDERED: LORazepam 2 MG/ML VIAL ONE (01:07)
[2022-07-12] MEDS ORDERED: THIAMINE 200 MG/2 ML INJ ONE (01:07)
[2022-07-12] MEDS ORDERED: NA CHLORIDE 0.9% 50 ML ONE (01:08)
--- NOTE | 2022-07-12 01:48 | ER ---
Nurse's Notes [facility] Name: Kevin Kaye Age: 61 yrs Sex: Male : 1960 Arrival Date: 07/11/2022 Time: 17:26 Bed 20 Private MD: Diagnosis: Alcohol dependence with withdrawal delirium;Delirium tremens, restlessness and agitation, agitation requiring sedation protocol, chronic anemia, history of schizophrenia, medication noncompliance Presentation: 07/11 17:31 Chief complaint: EMS states: Toned out to patient home for chest pain, nausea, ld1 constipation. EMS 12 lead normal sinus rhythm. Coronavirus screen: At this time, the client does not indicate any symptoms associated with coronavirus-19. Ebola Screen: No symptoms or risks identified at this time. Initial Sepsis Screen: Does the patient meet any 2 criteria? No. Patient's initial sepsis screen is negative. Does the patient have a suspected source of infection? No. Patient's initial sepsis screen is negative. Risk Assessment: Do you want to hurt yourself or someone else? Patient reports no desire to harm self or others. Onset of symptoms was July 11, 2022. 17:31 Method Of Arrival: EMS: [facility] ld1 17:31 Acuity: ARI 3 ld1 Triage Assessment: 17:35 General: Appears in no apparent distress. comfortable, Behavior is calm, cooperative, ld1 appropriate for age. Pain: Denies pain. EENT: No deficits noted. Neuro: Level of Consciousness is awake, alert, obeys commands, Oriented to person, place, time, situation. Cardiovascular: Capillary refill < 3 seconds Patient's skin is warm and dry. Respiratory: Airway is patent Respiratory effort is even, unlabored. GI: Abdomen is flat, non-distended. : No signs and/or symptoms were reported regarding the genitourinary system. Derm: No signs and/or symptoms reported regarding the dermatologic system. Musculoskeletal: No signs and/or symptoms reported regarding the musculoskeletal system. Historical: - Allergies: 17:35 PENICILLINS (rash); ld1 - PMHx: 17:35 Anxiety; Bipolar disorder; Depression; Schizophrenia; ld1 - Immunization history:: Adult Immunizations up to date, Client reports receiving the 2nd dose of the Covid vaccine. - Social history:: Smoking status: Patient denies any tobacco usage or history of. Patient/guardian denies using alcohol. Screenin:37 [facility] ED Fall Risk Assessment (Adult) History of falling in the last 3 months, ld1 including since admission No falls in past 3 months (0 pts). Abuse screen: Denies threats or abuse. Denies injuries from another. Nutritional screening: No deficits noted. Tuberculosis screening: No symptoms or risk factors identified. Assessment: 17:37 Reassessment: Skye johns called at this time. Pt spitting tobacco on telles, spitting all ld1 the way across room onto doors. Not using vomit bag, yelling at staff. Security at bedside. PD called at this time. ERP outside of room trying to convince patient to stop spitting - patient continuously spitting will not communicate with staff. "Fuck you I don't want your help." Will continue to monitor. Pt refusing to be hooked up to monitor. Trying to spit on staff at this time. 17:40 Reassessment: Pt noted to be putting more tobacco in his mouth, Security at bedside, ld1 attempted to instruct pt on hospital policy, pt continued to spit on floor and door while laying in bed. 17:44 Reassessment: PD, charge nurse, warehouse administrator at bedside with patient. Pt ld1 uncooperative at this time. 17:59 Reassessment: Pt requesting to be transferred to [facility]. ld1 18:36 Reassessment: Pt placed on monitor. Pt resting in bed. Yelling in bed. ld1 18:50 Reassessment: Pt screaming in room - trying to get out of bed. Pulling off cords. ERP ld1 and charge nurse at bedside. Meds administered per MD order. 18:50 Reassessment:. General: Behavior is anxious, combative, fussy, inappropriate for age. ld1 Neuro:. Cardiovascular: Capillary refill < 3 seconds Patient's skin is warm and dry. Rhythm is sinus rhythm. Respiratory: Airway is patent Respiratory effort is even, unlabored. 20:05 General: pt active in the bed talking to himself . as6 07/12 00:08 General: pt not resting with eyes closed . as6 Vital Signs: 07/11 17:31 BP 136 / 80; Pulse 84; Resp 18; Temp 98.7(TE); Pulse Ox 98% on R/A; Weight 95.25 kg; ld1 Height 5 ft. 8 in. ; Pain 3/10; 18:36 BP 133 / 60; Pulse 83; Resp 19; Pulse Ox 99% on R/A; ld1 18:50 BP 122 / 62; Pulse 85; Resp 23; Pulse Ox 99% on R/A; ld1 20:04 BP 144 / 61; Pulse 77; Resp 16 S; Pulse Ox 94% on R/A; as6 21:50 BP 119 / 64; Pulse 66; Resp 20 S; Pulse Ox 100% on R/A; as6 07/12 00:08 BP 111 / 54; Pulse 68; Resp 17 S; Pulse Ox 97% on R/A; as6 01:48 BP 109 / 59; Pulse 65; Resp 18 S; Pulse Ox 97% on R/A; as6 07/11 17:31 Body Mass Index 31.93 (95.25 kg, 172.72 cm) ld1 07/11 17:31 Pain Scale: Adult ld1 ED Course: 07/11 17:30 Patient arrived in ED. ld1 17:33 Shin Barfield MD is Attending Physician. bs3 17:34 Triage completed. ld1 17:35 Arm band placed on right wrist. ld1 17:37 Placed in gown. Bed in low position. Call light in reach. Side rails up X2. Refusing ld1 monitoring at this time. Uncooperative. 17:37 No provider procedures requiring assistance completed. Patient maintains SpO2 ld1 saturation greater than 95% on room air. 17:37 Maintain EMS IV. Dressing intact. Good blood return noted. Site clean \\T\\ dry. Gauge \\T\\ ld 1 site: 20G RAC. 17:55 Kathie Aiken, RN is Primary Nurse. ld1 18:30 EKG done, by ED staff, reviewed by Shin Barfield MD. mb9 18:36 Lipase Sent. ld1 18:36 Comprehensive Metabolic Panel Sent. ld1 18:36 CBC with Diff Sent. ld1 18:36 BNP Sent. ld1 18:36 Ethanol Sent. ld1 19:04 XRAY Chest (1 view) In Process Unspecified. EDMS 19:55 Primary Nurse role handed off by Kathie Aiken, RN rv1 19:57 Eric Jim RN is Primary Nurse. as6 20:05 Attending Physician role handed off by Shin Barfield MD sp4 20:05 Akhil Finnegan MD is Attending Physician. sp4 20:45 Head Brain Wo Cont In Process Unspecified. EDMS 07/12 01:18 Initiated Transfer with Dung Christina with [facility]. rv1 02:21 Pt accepted to [facility] by Dr. Doss to [address] [id number] Rm 3. rv1 02:59 Patient admitted, IV remains in place. as6 Administered Medications: 07/11 17:50 Drug: HALdol (as decanoate) IM 5 mg Route: IM; Site: right deltoid; ld1 18:35 Follow up: Response: No adverse reaction ld1 18:03 Drug: Geodon IM 20 mg Route: IM; Site: left deltoid; ld1 18:35 Follow up: Response: No adverse reaction ld1 18:31 Drug: Ondansetron IVP 8 mg Route: IVP; Site: right forearm; ld1 18:49 Follow up: Response: No adverse reaction ld1 18:49 Drug: Midazolam IVP or IV 4 mg Route: IVP; Site: right forearm; ld1 07/12 03:00 Follow up: Response: No adverse reaction as6 07/11 19:34 Drug: NS 0.9% IV 500 ml Route: IV; Rate: bolus; Site: right forearm; as6 07/12 02:59 Follow up: Response: No adverse reaction; IV Status: Completed infusion; IV Intake: as6 500ml 01:07 Drug: Ativan IVP 2 mg Route: IVP; Site: right forearm; as6 03:00 Follow up: Response: No adverse reaction as6 01:07 Drug: Thiamine IV 100 mg Route: IV; Rate: bolus; Site: right forearm; as6 03:00 Follow up: Response: No adverse reaction; IV Status: Completed infusion; IV Intake: [id number] 02:52 Drug: D5-NS IV 1000 ml Route: IV; Rate: 125 ml/hr; Site: right forearm; as6 03:01 Follow up: Response: No adverse reaction; IV Status: Infusion continued upon transfer; as6 IV Intake: 20ml Medication: 07/11 17:37 VIS not applicable for this client. ld1 Intake: 07/12 02:59 IV: 500ml; Total: 500ml. as6 03:00 IV: 50ml; Total: 550ml. as6 03:01 IV: 20ml; Total: 570ml. as6 Outcome: 01:47 ER care complete, transfer ordered by . sp4 01:48 Condition: stable as6 01:48 Instructed on the need for transfer. 02:59 Transferred by ground EMS to [facility], Transfer form completed. as6 X-rays sent w/ patient. 03:01 Patient left the ED. as6 Signatures: Dispatcher [employer] EDMS Kathie Aiken RN RN ld1 Eric Jim RN RN as6 Shin Barfield MD MD bs3 Robert, Sunita Abraham RN RN mb9 Danielle Castillo rv1 Akhil Finnegan MD MD sp4 Corrections: (The following items were deleted from the chart) 07/11 17:44 17:37 Inserted saline lock: 20 gauge in right antecubital area, using aseptic ld1 technique. ld1 07/12 03:53 03:51 Initiated Transfer with Dung Christina with [facility] rv1 rv1
--- NOTE | 2022-07-12 01:48 | EDPHYS ---
Physician Documentation [facility] [place], [place] Name: Kevin Kaye Age: 61 yrs Sex: Male : 1960 Arrival Date: 07/11/2022 Time: 17:26 Bed 20 Private MD: ED Physician Akhil Finnegan HPI: 07/11 17:56 This 61 yrs old Male presents to ER via EMS with complaints of Chest Pain, bs3 Nausea/Vomiting. 17:56 History is limited secondary to patient's condition patient seen here recently and bs3 transferred to [facility] approximately 20 days ago he has a history of bipolar disorder anxiety EtOH abuse ilio caval DVT status post IVC filter and removal June 03, 2021 due to a fracture also thrombolysis and thromboembolectomy at [facility] 06/03/2022 patient was here recently for being combative urinating and spitting everywhere given. Patient was seen here found to be anemic given PRBCs and transferred out he had a CT abdomen which found possible lytic lesions and bladder deformity he saw at [facility] on 05 17 with plans to follow-up the left renal mass but he canceled the appointment he is supposed to be on Eliquis but may be noncompliant with his medications he had seen psych at [facility] on 06 21 where they found him to have alcohol dependence in remission until his most recent episode he was seen by hematology who agreed with lifelong anticoagulation given multiple blood clots they did not have concern for HIT given his negative ISIDRO he was seen here by myself recently and discharged home after work-up he presents with report of chest pain nausea vomiting but he is unable to provide a history currently. 18:38 Patient is actively spitting his hip he refused to talk with us. bs3 07/12 02:17 Patient care was assumed from Dr. Barfield. Patient is well familiar to me from prior sp4 visit on 06/21/2022. When he presented with moderate to severe agitation secondary to presumed delirium tremens. Patient at that time was investigated here in the emergency room and then transferred to [facility]. Patient had no DVTs at that time in either extremities his CAT scan has revealed normal CT head, no evidence of acute intracranial process. CT abdomen and pelvis revealed incompletely distended bladder with abnormal bladder contour. Either severe cystitis or bladder mass. Mild bilateral hydronephrosis and hydroureter's. Lytic lesion posterior T11 vertebra. Suspicious for neoplastic process. No aortic dissection. No pulmonary abnormality. No pericardial or pleural effusion. No adenopathy. No abnormality involving liver spleen or pancreas. No adrenal gland abnormality. At that time patient is also pancytopenic.. Today no family available for collateral information. Patient is very confused on my assessment.. Historical: - Allergies: 07/11 17:35 PENICILLINS (rash); ld1 - PMHx: 17:35 Anxiety; Bipolar disorder; Depression; Schizophrenia; ld1 - Immunization history:: Adult Immunizations up to date, Client reports receiving the 2nd dose of the Covid vaccine. - Social history:: Smoking status: Patient denies any tobacco usage or history of. Patient/guardian denies using alcohol. ROS: 18:38 Unable to obtain ROS due to patient being uncooperative. bs3 07/12 01:48 Constitutional: Negative for fever, chills, and weight loss, otherwise not able to sp4 collect ROS Exam: 07/11 18:38 Constitutional: This is a well developed, well nourished patient who is awake, alert, bs3 he is agitated and combative he is not following questions and he is actively spitting Head/Face: Normocephalic, atraumatic. Eyes: Pupils equal round and reactive to light, extra-ocular motions intact. Lids and lashes normal. ENT: mmm, no posterior phyarngeal erythema Neck: Trachea midline, no thyromegaly, no neck stiffness Chest/axilla: Normal chest wall appearance and motion. Nontender with no deformity. No lesions are appreciated. Cardiovascular: Regular rate and rhythm with a normal S1 and S2. symmetric pulses in upper extremities Respiratory: Lungs have equal breath sounds bilaterally, clear to auscultation, no respiratory distress Abdomen/GI: Soft, non-tender, no rebound or guarding Skin: Warm, dry with normal turgor. Normal color with no rashes, no lesions, and no evidence of cellulitis. MS/ Extremity: His right lower extremity is swollen and slightly red he has pitting edema Neuro: Awake and alert, gcs 14 (confusion) he has no focal deficits, but is very agitated. Psych: pt agitated, spitting, not responding purposefully. 07/12 01:42 ECG was reviewed by the Attending Physician. EKG time 2219, normal sinus rhythm with a sp4 rate of 72, no ST elevation or depression, no ectopy. Vital Signs: 07/11 17:31 BP 136 / 80; Pulse 84; Resp 18; Temp 98.7(TE); Pulse Ox 98% on R/A; Weight 95.25 kg; ld1 Height 5 ft. 8 in. ; Pain 3/10; 18:36 BP 133 / 60; Pulse 83; Resp 19; Pulse Ox 99% on R/A; ld1 18:50 BP 122 / 62; Pulse 85; Resp 23; Pulse Ox 99% on R/A; ld1 20:04 BP 144 / 61; Pulse 77; Resp 16 S; Pulse Ox 94% on R/A; as6 21:50 BP 119 / 64; Pulse 66; Resp 20 S; Pulse Ox 100% on R/A; as6 07/12 00:08 BP 111 / 54; Pulse 68; Resp 17 S; Pulse Ox 97% on R/A; as6 01:48 BP 109 / 59; Pulse 65; Resp 18 S; Pulse Ox 97% on R/A; as6 07/11 17:31 Body Mass Index 31.93 (95.25 kg, 172.72 cm) ld1 07/11 17:31 Pain Scale: Adult ld1 MDM: 07/11 17:33 Patient medically screened. bs3 18:38 Data reviewed: vital signs, nurses notes. ED course: Possible bipolar disorder bs3 schizophrenia possible electrolyte abnormality possible infection possible intercranial hemorrhage patient was actively spitting and very agitated threatening staff he was given multiple medications for anxiolysis we will do serial exams will reassess. 19:24 ED course: Hemoglobin not significantly changed from prior. bs3 07/12 01:42 Differential diagnosis: acute pericarditis, anxiety, coronary artery disease congestive sp4 heart failure cholecystitis, Cholelithiasis myocarditis, pancreatitis, unstable angina. ED course: Patient was accepted at [facility] ICU. . 02:17 ED course: Patient was discussed with yarding and folding machine operator at [facility] and sp4 accepted for transfer to [facility] ICU. Patient remained stable after Ativan and Rldon.. 07/11 17:35 Order name: CBC with Diff; Complete Time: 19:23 bs3 07/11 17:35 Order name: Comprehensive Metabolic Panel; Complete Time: 19:23 bs3 07/11 17:35 Order name: Lipase; Complete Time: 19:23 bs3 07/11 17:35 Order name: Troponin High Sensitivity; Complete Time: 19:23 bs3 07/11 17:35 Order name: BNP; Complete Time: 19:23 bs3 07/11 17:43 Order name: Ethanol; Complete Time: 19:23 bs3 07/11 19:25 Order name: Acetaminophen; Complete Time: 20:39 bs3 07/11 19:25 Order name: Salicylate; Complete Time: 22:02 bs3 07/11 22:02 Order name: Troponin High Sensitivity; Complete Time: 00:37 sp4 07/11 22:02 Order name: BNP; Complete Time: 00:37 sp4 07/11 17:35 Order name: XRAY Chest (1 view); Complete Time: 19:23 bs3 07/11 20:34 Order name: Head Brain Wo Cont; Complete Time: 22:02 EDMS 07/11 22:02 Order name: EKG; Complete Time: 22:03 sp4 07/11 17:35 Order name: EKG - Nurse/Tech; Complete Time: 18:27 bs3 07/11 18:00 Order name: Monitor; Complete Time: 18:20 bs3 07/11 18:00 Order name: Cardiac monitoring; Complete Time: 18:20 bs3 EC:42 Rate is 72 beats/min. Rhythm is regular, Normal Sinus Rhythm. QRS Only is Normal. VT sp4 interval is normal. QRS interval is normal. QT interval is normal. T waves are Normal. Clinical impression: Normal ECG. Interpreted by me. Administered Medications: 07/11 17:50 Drug: HALdol (as decanoate) IM 5 mg Route: IM; Site: right deltoid; ld1 18:35 Follow up: Response: No adverse reaction ld1 18:03 Drug: Geodon IM 20 mg Route: IM; Site: left deltoid; ld1 18:35 Follow up: Response: No adverse reaction ld1 18:31 Drug: Ondansetron IVP 8 mg Route: IVP; Site: right forearm; ld1 18:49 Follow up: Response: No adverse reaction ld1 18:49 Drug: Midazolam IVP or IV 4 mg Route: IVP; Site: right forearm; ld1 07/12 03:00 Follow up: Response: No adverse reaction 07/11 19:34 Drug: NS 0.9% IV 500 ml Route: IV; Rate: bolus; Site: right forearm; as6 07/12 02:59 Follow up: Response: No adverse reaction; IV Status: Completed infusion; IV Intake: as6 500ml 01:07 Drug: Ativan IVP 2 mg Route: IVP; Site: right forearm; as6 03:00 Follow up: Response: No adverse reaction as6 01:07 Drug: Thiamine IV 100 mg Route: IV; Rate: bolus; Site: right forearm; as6 03:00 Follow up: Response: No adverse reaction; IV Status: Completed infusion; IV Intake: [id number] 02:52 Drug: D5-NS IV 1000 ml Route: IV; Rate: 125 ml/hr; Site: right forearm; as6 03:01 Follow up: Response: No adverse reaction; IV Status: Infusion continued upon transfer; as6 IV Intake: 20ml Disposition: 01:42 Critical Care:. sp4 Disposition Summary: 07/12/22 01:47 Transfer Ordered Transfer Location: [facility] sp4 Reason: Higher level of care sp4 Condition: Stable sp4 Problem: new sp4 Symptoms: have improved sp4 Accepting Physician: Healthcare Representative at [facility](07/12/22 03:01) as6 Diagnosis - Alcohol dependence with withdrawal delirium sp4 - Delirium tremens, restlessness and agitation, agitation requiring sedation sp4 protocol, chronic anemia, history of schizophrenia, medication noncompliance Forms: - Medication Reconciliation Form sp4 - SBAR form sp4 Critical care time excluding procedures: 01:42 Critical care time: Bedside Care: 36 minutes, Consultation: 12 minutes. Total time: 48 sp4 minutes Signatures: Dispatcher [employer] EDKathie Vincent RN RN ld1 Eric Jim RN RN as6 Shin Barfield MD MD bs3 Akhil Finnegan MD MD sp4 Corrections: (The following items were deleted from the chart) 07/11 18:00 17:56 History is limited secondary to patient's condition patient seen here recently bs3 and transferred to [facility] approximately 20 days ago he has a history of bipolar disorder anxiety EtOH abuse ilio caval DVT status post IVC filter and removal June 03, 2021 due to a fracture also thrombolysis and thromboembolectomy at [facility] 06/03/2022 patient was here recently for being combative urinating and spitting everywhere given. bs3 20:32 18:42 Head Brain Wo [id number].BRZ ordered. EDMS EDMS 07/12 03:01 01:47 Healthcare Representative at [facility] sp4 as6
[2022-07-12] MEDS ORDERED: D5 0.45 NS 1,000 ML IV ONE (02:53)
[2022-07-12 03:05] VITALS: TEMP 98.7
[2022-07-12 03:11] VITALS: O2SAT 97
[2022-07-12 03:12] VITALS: BP 109/59
--- NOTE | 2022-07-13 07:09 | EKG ---
Test Date: 2022-07-11 Test Time: 22:19:14 Teaching Manager: ÓSCAR MEASUREMENT RESULTS: Intervals: Rate: 72 MS: 168 QRSD: 88 QT: 404 QTc: 442 [place]: P: 49 MS: 168 QRS: 43 T: 19 INTERPRETIVE STATEMENTS: Normal sinus rhythm Normal ECG Compared to ECG 07/03/2022 23:37:50 No significant changes Electronically Signed On 07-13-22 07:06:53 CDT by Paco Quach
--- NOTE | 2022-07-13 14:40 | EKG ---
Test Date: 2022-07-11 Test Time: 18:24:21 [place]: MB MEASUREMENT RESULTS: Intervals: Rate: 86 KS: 150 QRSD: 90 QT: 382 QTc: 457 [place]: P: 67 KS: 150 QRS: 70 T: 39 INTERPRETIVE STATEMENTS: Normal sinus rhythm Normal ECG Compared to ECG 07/03/2022 23:37:50 No significant changes Electronically Signed On 07-13-22 14:38:04 CDT by Isacc Gagnon
== END 2022-07-12 03:01 | disposition short-term general hospital (02) ==
LOC: ER 17:26
DX: F10.231 Alcohol dependence with withdrawal delirium (principal); R45.1 Restlessness and agitation; D64.9 Anemia, unspecified; F20.9 Schizophrenia, unspecified; Z91.148 Patient's other noncompliance with medication regimen for other reason; Z88.0 Allergy status to penicillin
CPT/HCPCS: 96365; 96361; 93005 ×2; 85025; 36415; 84484 ×2; 83690; 80053; 83880 ×2; 70450; 71045; 96375; 96372; 99285; 96366; J3411; J1630; J2250; J3486; J2405; J7799; J7040; G0480 ×3

== ENCOUNTER 2022-07-16 01:49 | Emergency (ER) | payer OTHER ==
--- OUTSIDE RECORDS SUMMARY | 2022-07-16 02:22 | XMS REPORT | Continuity of Care Document ---
:1960 Author Organization [facility] t Address [address] [facility]. [address] [place] [address] Care Team Providers Name Role Phone Asked, No Pcp Primary Care Physician Unavailable [id number] Attending Clinician Unavailable IZABELA PHAM Attending Clinician Unavailable IZABELA PHAM Attending Clinician Unavailable LAWRENCE PETERSON Attending Clinician Unavailable LAWRENCE PETERSON Attending Clinician Unavailable ROBINA BECERRIL Attending Clinician Unavailable ELLE JARRELL Attending Clinician Unavailable ANA TERRAZAS Attending Clinician Unavailable Ana Terrazas MD Attending Clinician RAMANA CRUZ Attending Clinician Unavailable Ángel Murray MD Attending Clinician Nancy CARTER, Ramana Simon Attending Clinician TRACEY TRINIDAD Attending Clinician Unavailable Chris CARTER, Hilda Garcia Attending Clinician Tracey Trinidad DO Attending Clinician Jerrica CARTER, Robina Valdez Attending Clinician Kaden CARTER, Sunny Attending Clinician [phone] Fabienne CARTER, Olga Attending Clinician Kendra CARTER, Laureen Attending Clinician LAUREEN MOORE Attending Clinician Unavailable Doctor Unassigned, Blossom Attending Clinician Unavailable Elyssa Calderon RN Attending Clinician Unavailable ALLAN LYNCH Attending Clinician [...] Unavailable DAWSON CHOUDHURY Attending Clinician Unavailable , [facility] Sleep Lab Bed Attending Clinician Unavailable Susan Manjarrez PA-C Attending Clinician SUSAN MANJARREZ Attending Clinician Unavailable DELROY FARAH Attending Clinician Unavailable Delroy Farah MD Attending Clinician [facility] Sleep Lab Attending Clinician Unavailable Erma Morales RN Attending Clinician Unavailable MAGDALENE MALDONADO Attending Clinician Unavailable Joel VACATION SALES ADVISOR, Magdalene Attending Clinician Sejal VACATION SALES ADVISOR, Fadisuma Attending Clinician CARLOS CORBIN Attending Clinician Unavailable Ladonna Bryant DO Attending Clinician MICHAEL GILL S Attending Clinician Unavailable Michael Fulton S Attending Clinician CLEVE_ Attending Clinician Unavailable BENITO LOPEZ Attending Clinician Unavailable Edgard Leo DO Attending Clinician Magali Curtis MD Attending Clinician Ted Lion MD Attending Clinician Allen Maravilla MD Attending Clinician Georgina Duncan MD Attending Clinician [phone] SIENNA POLK Attending Clinician Unavailable LADI RIBERA Attending Clinician Unavailable YASMINE BROOKE Attending Clinician Unavailable MD YASMINE BROOKE Attending Clinician Unavailable Pato Hill MD Attending Clinician Surgery, [facility] General Attending Clinician Unavailable Sofia Malone MD Attending Clinician Surgery, [facility] Vascular Attending Clinician Unavailable Ramana Padron MD Attending Clinician RAMANA SHEA M.D., RAMANA Acevedo M.D. Attending Clinician Unavailable Christy Moya Attending Clinician [id number] Admitting Clinician Unavailable IZABELA PHAM Admitting Clinician Unavailable ELLE JARRELL Admitting Clinician Unavailable RAMANA CRUZ Admitting Clinician Unavailable Ramana Cruz MD Admitting Clinician Hilda PEREZ Admitting Clinician Unavailable OLGA ABRAHAM Admitting Clinician Unavailable ALLAN LYNCH Admitting Clinician Unavailable MICHAEL GILL S Admitting Clinician Unavailable CARLOS CORBIN Admitting Clinician Unavailable CLEVE_ Admitting Clinician Unavailable Magali Curtis MD Admitting Clinician Perla CARTER, Georgina Yesi Admitting Clinician [phone] YASMINE BROOKE Admitting Clinician Unavailable MD YASMINE BROOKE Admitting Clinician Unavailable Sergio CARTER, Pato Marina Admitting Clinician RAMANA SHEA M.D., RAMANA Acevedo Admitting Clinician Tasha ivey Payers Payer Name Policy Type Policy Number Effective Date Expiration Date Zhen benitez [facility] [id number] [place] [id number] 2021 CLASSIC NO PREMIUM 00:00:00 HMO MEDICARE PART A [id number] 2003 00:00:00 [facility] [id number] [facility] 00:00:00 WELLCARE MAPS [id number] 2022 00:00:00 WELLCARE VALUE [id number] 2020 00:00:00 Problems Condition Condition Condition Status Onset Resolution Last Treating Co mments Source Name Details Category Date Date Treatment Clinician Date Cellulitis Cellulitis Disease Active U nivers of right of right 5-29 ity of lower lower 00:00: [place] extremity extremity 00 [facility] Branch Acute Acute Disease Active [facility] metabolic [...] Univers filter filter 4-14 ity of 00:00: [place] [facility] DVT (deep DVT (deep Disease Active Uni vers venous venous 4-14 [place] of [place] 00 [facility] Branch Bilateral Bilateral Disease Active Uni vers sciatica sciatica 4-13 ity of 00:00: [place] 00 Medical Branch Obesity Obesity Disease Active Univers (BMI (BMI 4-13 ity of 30-39.9) 30-39.9) 00:00: 00 Medical Branch Deep vein Deep vein [...] chronicity chronicity ally from request for surgery [id number] Lipoma of Lipoma of Disease Active Overview: Univers right right 4-12 Formattin ity of lower lower 00:00: g of this [place] extremity extremity 00 note Medi gordon might be Branch different from the original. Added automatic ally from request for surgery [id number] Lipoma of Lipoma of Disease Active Uni vers torso torso 4-06 ity of 00:00: [place] [facility] Kamryn Kamryn Disease Active Univers 6-24 ity of 00:00: [place] [facility] Rhabdomyol Rhabdomyol Disease Active U nivers ysis ysis 621 ity of 00:00: [place] [address] Medical Branch Presence Presence Disease Active Metho di of IVC of IVC 917 st filter filter 00:00: Hospita 00 l Acute Acute Disease Active Methodi chest pain chest pain 9-15 st 00:00: Hospita 00 l Behavior Behavior Disease Active Unive rs problem problem 613 ity of 00:00: [place] [address] Medical Branch Cellulitis Cellulitis Disease Active U nivers and and 613 ity of abscess of abscess [place] foot foot 00 Medical [place] Alteration Alteration Disease Active U nivers consciousn consciousn 6-13 it y of ess ess 00:00: [place] [address] Medical Branch TESTING TESTING Diagnosis Active 2014-07-28 Memoria FOR DVT FOR DVT 07-22 14:06:00 l Active 00:00: [place] 07/22/2014 00 [facility] Schizophre [...] Clinician Date Discharge Discharge Problem 2014-07-25 2014-07-25 Prabha Diagnosis: Diagnosis: 07-22 07:19:48 07:19:48 l Chronic Chronic 05:00: [place] back pain back pain 00 07/22/2014 07/25/2014 [facility] Discharge Discharge Problem [...] be sent out. Penicill Propensi Active Rash [address] [facility] 5[facility]09 [facility] adverse 00:[facility]: Medical reaction 00 Center s PENICILL Allergy Active Low Rash [facility] IN [facility]09 [facility] 00:[facility]: Medical 00 Center HEPARIN DRUG [...] DA Active U Rash 2019-02 [facility] ins 04-05 00:00: 00 No Known DA Active U 2019-02 [facility] Drug 2-20 Allergie 00:00: s 00 Penicill Propensi Active Rash 2015-0 Univer s ins ty to 1-06 ity of adverse 00:00: [place] reaction 00 Medical s to Branch drug PENICILL Drug Active Rash 2015-0 Univers INS Class 1-06 ity of 00:00: [place] 00 Medical Branch Penicill Penicill Active Memori a in in l [place] Family History Family Member Diagnosis Comments Start Date Stop Date Source Natural father Heart attack [facility] Natural mother Diabetes Christianity [facility] Social History Social Habit Start Date Stop Date Quantity Comments Source Gender identity [facility] Sexual orientation [facility] History SDOH University o f Alcohol Std Drinks [place] [facility] History SDOH University o f Alcohol Binge [place] Medic al Branch History SDOH Social Unive rsity of Connections [facility] Med ical Together Branch History SDOH Social Unive rsity of Connections [facility] Medical Branch History SDOH Social Unive rsity of Connections [place] [facility] Membership Branch History SDOH Social Unive rsity of Connections [place] [facility] Meetings Branch Exposure to 2022-07-01 2022-07-11 [...] 1 Univers ity of Worry 00:00:00 00:00:00 [place] [facility] History SDOH Food 2022-05-27 2022-05-27 1 Univers ity of Scarcity 00:00:00 00:00:00 [place] [facility] History SDOH 2022-05-27 2022-05-27 2 University o f Transport Med 00:00:00 00:00:00 [place] Medic al Branch History SDCT 2022-05-27 2022-05-27 2 University o f Transport Non-Med 00:00:00 00:00:00 [place] M edical Branch History SDOH 2022-05-27 2022-05-27 2 University o f Housing Unable to 00:00:00 00:00:00 [place] M edical Pay Branch History [facility] 2022-05-27 2022-05-27 1 University o f Housing Places 00:00:00 00:00:00 [place] Medi gordon Lived Branch History [facility] 2022-05-27 2022-05-27 2 University o f Housing Homeless 00:00:00 00:00:00 [facility] dical Last Year Branch Education 2022-05-26 2022-05-26 21 University of 00:00:00 00:00:00 [facility] Tobacco use and 2022-05-03 2022-05-03 User of Universit y of exposure 00:00:00 00:00:00 smokeless [facility] Tobacco Comment 2021-09-22 2021-09-22 dipper Universit y of 00:00:00 00:00:00 [facility] History of Social 2019-10-31 2019-10-[address] function 00:00:00 00:00:00 Hospital Alcohol intake 2019-10-29 2019-10-29 Lifetime Christianity 00:00:00 00:00:00 non-drinker Hospital (finding) History of tobacco 2014-08-25 Snuff User Univer sity of use 00:00:00 [facility] Sex [birth year] At [birth year] Christianity 00:00:00 00:00:00 Hospital Smoking Status Start Date Stop Date Source Social History [facility] Medications Ordered Filled Start Stop Current Ordering Indication Dosage Frequency Signature Comments Components Source Medication Medication Date Date Medication? Clinician (SIG) Name Name clindamycin 2023-0 2023- No 900mg 900 mg, IV Univers in 5 % 07-11 Piggyback, ity of dextrose 10:45: 11:47 ONCE, 1 [place] (CLEOCIN) 00 :00 dose, On Medica l 900 mg/50 Mon [place] mL IV 07/11/22 at piggyback 0545, RTU 900 mg Administer over 30 Minutes, 50 mL
R chelsea for Anti-Infec tive: Empiric Therapy for Suspected Infection< br>Empiric Therapy Site: Skin / Soft tissue
Duration of therapy: 5 days
Re stricted use approved by: ED PROVIDER cefTRIAXone 2022-0 2022- No 1000mg 1,000 mg, Univers (ROCEPHIN) 07-05 IV ity of 1,000 mg in 14:15: 14:53 [place], [place] NaCl 0.9% 00 :00 ONCE, 1 Medical (NS) 100 mL dose, On Bran ch MINI-BAG e 07/05/22 at 0915, Administer over 30 Minutes, 100 mL
Reas on for Anti-Infec tive: Empiric Therapy for Suspected Infection< br>Empiric Therapy Site: Skin / Soft tissue
Duration of therapy: 72 hours FENTanyl PF 2022-0 2022- No 50ug 50 mcg, Un mary (SUBLIMAZE 07-05 Slow IV ity o f (PF)) 12:15: 11:46 [place], [place] injection 00 :00 ONCE, 1 Medical 50 mcg dose, On Branch 07/05/22 at 0715, Routine OLANZapine 2022-0 Yes [id number] 5mg Take 1 Univers 5 mg tablet 5-23 tablet by ity of 00:00: mouth in [place] 00 the Medical morning. [place] OLANZapine 2022-0 Yes [id number] 5mg Take 1 Univers 5 mg tablet 5-23 tablet by ity of 00:00: mouth in [place] 00 the Medical morning. Branch OLANZapine 2022-0 Yes [id number] 5mg Take 1 Univers 5 mg tablet 5-23 tablet by ity of 00:00: mouth in [place] 00 the Medical morning. Branch OLANZapine 2022-0 Yes [id number] 5mg Take 1 Univers 5 mg tablet 5-23 tablet by ity of 00:00: mouth in [place] 00 the Medical morning. Branch OLANZapine 2022-0 Yes [id number] 5mg Take 1 Univers 5 mg tablet 5-23 tablet by ity of 00:00: mouth in [place] 00 the Medical morning. Branch furosemide 2022-2022- Yes [id number] 40mg Take 1 Univers 40 mg 5-23 06-07 tablet by ity of tablet 00:00: 04:59 mouth [place] 00 :00 every Medical morning Branch and evening for 14 days. furosemide 2022-0 2022- Yes [id number] 40mg Take 1 Univers 40 mg 5-23 06-07 tablet by ity of tablet 00:00: 04:59 mouth [place] 00 :00 every Medical morning Branch and evening for 14 days. furosemide 2022-0 2022- Yes [id number] 40mg Take 1 Univers 40 mg 5-23 06-07 tablet by ity of tablet 00:00: 04:59 mouth [place] 00 :00 every Medical morning Branch and evening for 14 days. furosemide 2022-2022- Yes [id number] 40mg Take 1 Univers 40 mg 5-23 06-07 tablet by ity of tablet 00:00: 04:59 mouth [place] 00 :00 every Medical morning Branch and evening for 14 days. furosemide 2022-0 2022- Yes [id number] 40mg Take 1 Univers 40 mg 5-23 06-07 tablet by ity of tablet 00:00: 04:59 mouth [place] 00 :00 every Medical morning Branch and evening for 14 days. cephALEXin 2022-2022- Yes [id number] 1000mg Take 2 Univers 500 mg 5-05 07-31 [id number] capsules ity of capsule 00:00: 04:59 by mouth [place] 00 :00 in the Medical morning Branch and 2 capsules in the evening. Do all this for 7 days. cephALEXin 2022- Yes [id number] 1000mg Take 2 Univers 500 mg 5-23 -31 [id number] capsules ity of capsule 00:00: 04:59 by mouth [place] 00 :00 in the Medical morning Branch and 2 capsules in the evening. Do all this for 7 days. cephALEXin 2022-2022- Yes [id number] 1000mg Take 2 Univers 500 mg 5-05 07-31 [id number] capsules ity of capsule 00:00: 04:59 by mouth [place] 00 :00 in the Medical morning Branch and 2 capsules in the evening. Do all this for 7 days. cephALEXin 2022-0 2022- Yes [id number] 1000mg Take 2 Univers 500 mg 07-05 [id number] capsules ity of capsule 00:00: 04:59 by mouth [place] 00 :00 in the Medical morning Branch and 2 capsules in the evening. Do all this for 7 days. cephALEXin 2022-0 2022- Yes [id number] 1000mg Take 2 Univers 500 mg 07-05 [id number] capsules ity of capsule 00:00: 04:59 by mouth [place] 00 :00 in the Medical morning Branch and 2 capsules in the evening. Do all this for 7 days. apixaban 5 2022-0 Yes [id number] 5mg Take 1 Unive rs mg tablet 5-22 tablet by ity o f 00:00: mouth in [place] [address] the [facility] morning Branch and 1 tablet in the evening. Indication s: history of deep vein thrombosis apixaban 5 2022-0 Yes [id number] 5mg Take 1 Unive rs mg tablet 5-22 tablet by ity o f 00:00: mouth in [place] [address] the [facility] morning [place] and 1 tablet in the evening. Indication s: history of deep vein thrombosis apixaban 5 2022-0 Yes [id number] 5mg Take 1 Unive rs mg tablet 5-22 tablet by ity o f 00:00: mouth in [place] [address] the [facility] morning Branch and 1 tablet in the evening. Indication s: history of deep vein thrombosis apixaban 5 2022-0 Yes 5523 5mg Take 1 Unive rs mg tablet 5-22 tablet by ity o f 00:00: mouth in [place] [address] the [facility] morning Branch and 1 tablet in the evening. Indication s: history of deep vein thrombosis apixaban 5 2022-0 Yes 5523 5mg Take 1 Unive rs mg tablet 5-22 tablet by ity o f 00:00: mouth in [place] [address] the [facility] morning Branch and 1 tablet in the evening. Indication s: history of deep vein thrombosis apixaban 5 3-0 Yes 5523 5mg Take 1 Unive rs mg tablet 5-22 tablet by ity o f 00:00: mouth in [place] [address] the [facility] morning Branch and 1 tablet in the evening. Indication s: history of deep vein thrombosis apixaban 5 2022-0 Yes 5523 5mg Take 1 Unive rs mg tablet 5-22 tablet by ity o f 00:00: mouth in [address] and 1 tablet in the evening. Indication s: history of deep vein thrombosis apixaban 5 2023-0 Yes 5523 5mg Take 1 Unive rs mg tablet 5-22 tablet by ity o f 00:00: mouth in [address] and 1 tablet in the evening. Indication [...] mouth Center nightly. gabapentin 2023-0 Yes 300mg [id number] Take [address] [facility] (NEURONTIN) 5-11 [id number] capsule [facility] 300 MG 18:24: 3D (300 [...] tablet (5 mg total) before bedtime. traMADoL 2023-0 Yes 50mg Take [address] [facility] (ULTRAM) 50 5-11 tablet (50 Alison kes mg tablet 18:24: mg total) Med ical 33 by mouth Center every 6 (six) hours as needed for Pain. Max Daily Amount: 200 mg mirtazapine 3-0 Yes 45mg QD Take [address] [facility] (REMERON) 5-11 tablet (45 Luke s 45 MG 18:24: mg total) Medical tablet 33 by mouth Center nightly. gabapentin 2023-0 Yes 300mg Q.[id number] Take [address] [facility] [facility] (NEURONTIN) 5-11 [id number] capsule [facility] 300 MG 18:24: 3D (300 mg Medical capsule 33 total) by Center mouth in the morning and 1 capsule (300 mg total) at noon and 1 capsule (300 mg total) in the evening. risperiDONE 3-0 Yes 1mg QD Take [address] [facility] [facility] (RisperDAL) 5-11 tablet (1 Yaneth es 1 MG tablet 18:24: mg total) M edical 33 by mouth Center nightly. escitalopra 2023-0 Yes 10mg QD Take [address] [facility] [facility] m oxalate 5-11 tablet (10 Luke s (LEXAPRO) 18:24: mg total) Med ical 10 MG 33 by mouth Center tablet in the morning. apixaban 3-0 Yes 5mg Q.5D Take [address] [facility] [facility] (Eliquis) 5 5-11 tablet (5 [place] es mg Tab 18:24: mg total) Medica l tablet 33 by mouth Center in the morning and 1 tablet (5 mg total) before bedtime. traMADoL 50 3-0 Yes Univer s mg tablet - ity of 00:: [address] traMADoL 50 3-0 Yes Univer s mg tablet 06-13 ity of :: [place] [facility] traMADoL 50 3-0 Yes Univer s mg tablet 06-13 ity of 00:00: [place] [facility] traMADoL 50 2022-0 Yes Univer s mg tablet 06-13 ity of 00:00: [place] [facility] traMADoL 50 2022-0 Yes Univer s mg tablet 06-13 ity of 00:00: [place] [facility] traMADoL 50 2022-0 Yes Univer s mg tablet 06-13 ity of 00:00: [place] [facility] traMADoL 50 2022-0 Yes Univer s mg tablet 06-13 ity of 00:00: [place] [facility] traMADoL 50 2022-0 Yes Univer s mg tablet 06-13 ity of 00:00: [place] [facility] traMADoL 50 2022-0 Yes Univer s mg tablet 06-13 ity of 00:00: [place] [facility] traMADoL 50 2022-0 Yes Univer s mg tablet 06-13 ity of 00:00: [place] [facility] traMADoL 50 2022-0 Yes Univer s mg tablet 06-13 ity of 00:00: [place] [facility] traMADoL 50 2022-0 Yes Univer s mg tablet 06-13 ity of 00:00: [place] [facility] traMADoL 50 2022-0 Yes Univer s mg tablet 06-13 ity of 00:00: [place] [facility] traMADoL 50 2022-0 Yes Univer s mg tablet 06-13 ity of 00:00: [place] [facility] traMADoL 50 2022-0 Yes Univer s mg tablet 06-13 ity of 00:00: [place] [facility] tc 2022-0 2022- No [id number] 25mCi 25 Univer s 99m-medrona 06-07-25 millicurie i ty of te 13:50: 13:50 , [place] (DRAXIMAGE 00 :00 Intravenou Med ical MDP-25) s, ONCE, 1 Branch injection dose, On Mon millicurie 06/07/22 at 0900, Routine apixaban 5 2022-0 2022- Yes [id number] 5mg Take 1 Univ ers mg tablet 06-07 tablet by ity of 00:00: 04:59 mouth in [place] 00 :00 the Medical morning Branch and 1 tablet in the evening. Do all this for 30 days. Indication s: history of deep vein thrombosis apixaban 5 0 2022- Yes 5523 5mg Take 1 Univ [...] by ity of 00:00: 04:59 mouth in [place] 00 :00 the Medical morning Branch and 1 tablet in the evening. Do all this for 30 days. Indication s: history of deep vein thrombosis apixaban 5 2022-2022- Yes 5523 5mg Take 1 Univ ers mg tablet 4- 05-26 tablet by ity of 00:00: 04:59 mouth in [place] 00 :00 the Medical morning Branch and [...] by ity of 00:00: 00:00 mouth in [place] 00 :00 the Medical morning Branch and 1 tablet in the evening. Do all this for 30 days. Indication s: history of deep vein thrombosis acetaminoph 2022-0 2022- Yes [id number] 500mg Take 1 Univers en 500 mg 4-25 05-06 tablet by ity of tablet 00:00: 04:59 mouth [place] 00 :00 every 6 Medical (six) Branch hours as needed for Pain for up to 10 days. acetaminoph 2022- Yes [id number] 500mg Take 1 Univers en 500 mg 4-25 05-06 tablet by ity of tablet 00:00: 04:59 mouth [place] 00 :00 every 6 Medical (six) Branch hours as needed for Pain for up to 10 days. acetaminoph 2022- Yes [id number] 500mg Take 1 Univers en 500 mg 4-25 05-06 tablet by ity of tablet 00:00: 04:59 mouth [place] 00 :00 every 6 Medical (six) Branch hours as needed for Pain for up to 10 days. acetaminoph 2022- Yes [id number] 500mg Take 1 Univers en 500 mg 4-25 05-06 tablet by ity of tablet 00:00: 04:59 mouth [place] 00 :00 every 6 Medical (six) Branch hours as needed for Pain for up to 10 days. acetaminoph 2022- Yes [id number] 500mg Take 1 Univers en 500 mg 4-25 05-06 tablet by ity of tablet 00:00: 04:59 mouth [place] 00 :00 every 6 Medical (six) Branch hours as needed for Pain for up to 10 days. acetaminoph 2022- Yes [id number] 500mg Take 1 Univers en 500 mg 4-25 05-06 tablet by ity of tablet 00:00: 04:59 mouth [place] 00 :00 every 6 Medical (six) Branch hours as needed for Pain for up to 10 days. acetaminoph 2022- Yes [id number] 500mg Take 1 Univers en 500 mg 4-25 05-06 tablet by ity of tablet 00:00: 04:59 mouth [place] 00 :00 every 6 Medical (six) Branch hours as needed for Pain for up to 10 days. docusate 2022- Yes [id number] 100mg Take 1 Univers 100 mg 4-25 [...] Indication s: acute pain polyethylen 2022- Yes [id number] 17g Take 1 Univers e glycol 4-25 05-03 Packet by ity o f 3350 17 00:00: 04:59 mouth [place] gram powder 00 :00 every 24 Medi gordon (twenty-fo Branch ur) hours as needed for Constipati on for up to 7 days. docusate 2022- Yes [id number] 100mg Take 1 Univers 100 mg 4-25 05-03 capsule by ity of capsule 00:00: 04:59 mouth in [place] 00 :00 the Medical morning Branch for [...] Indication s: acute pain polyethylen 2022- Yes [id number] 17g Take 1 Univers e glycol 4-25 05-03 Packet by ity o f 3350 17 00:00: 04:59 mouth [place] gram powder 00 :00 every 24 Medi gordon (twenty-fo Branch ur) hours as needed for Constipati on for up to 7 days. docusate 2022- Yes [id number] 100mg Take 1 Univers 100 mg 4-25 [...] Indication s: acute pain polyethylen 2022- Yes [id number] 17g Take 1 Univers e glycol 4-25 05-03 Packet by ity o f 3350 17 00:00: 04:59 mouth [place] gram powder 00 :00 every 24 Medi gordon (twenty-fo Branch ur) hours as needed for Constipati on for up to 7 days. docusate 2022- Yes [id number] 100mg Take 1 Univers 100 mg - 05-03 capsule by ity of capsule 00:00: 04:59 mouth in [place] 00 :00 the Medical morning Branch for 7 days. HYDROcodone 2022- Yes [id number] 1{tbl} Take 1 U nivers -acetaminop - 05-03 tablet by it y of hen 10-325 00:00: 04:59 mouth [place] mg tablet 00 :00 every 6 Medical (six) Branch hours as needed for Pain (scale 7-10) or Pain (scale 4-6) for up to 7 days. Indication s: acute pain polyethylen 2022- Yes [id number] 17g Take 1 Univers e glycol -25 05-03 Packet by ity o f 3350 17 00:00: 04:59 mouth [place] gram powder 00 :00 every 24 Medi gordon (twenty-fo Branch ur) hours as needed for Constipati on for up to 7 days. benzocaine- Yes 1{lozen 1 Lozenge, Univers menthoL 4-23 ge} Oral, ity of (CEPACOL 05:03: Q4HPRN, [place] SORE THROAT 14 Starting Medi gordon (CLAUDIA-MEN)) on [facility] lozenge 1 06/05/22 at Lozenge 0003, Until Discontinu ed, Routine, Sore throat benzocaine- 2022-0 Yes 1{lozen 1 Lozenge, Univers menthoL 4-23 ge} Oral, ity of (CEPACOL 05:03: Q4HPRN, [place] SORE THROAT 14 Starting Medi gordon (CLAUDIA-MEN)) on [facility] lozenge 1 06/05/22 at Lozenge 0003, Until Discontinu ed, Routine, Sore throat iopamidol 2022- No [id number] 80mL 80 mL, Univers (ISOVUE 06-05 Intravenou ity o f 370-500 mL) 01:36: 01:20 s, ONCE, 1 [place] injection 00 :00 dose, On Medica l 80 mL [facility] 06/04/22 at 2045, Routine apixaban 2022- Yes 10mg [Order 1 Univ ers (ELIQUIS) 06-05 Start] ity of tablet 10 01:00: 00:59 Name: Carina romeo 00 :00 apixaban Medical (ELIQUIS) Branch tablet 10 mg Signed Summary: 10 mg, Oral, BID, 14 doses, First dose on [facility] 06/04/22 at 1999, Last dose on [facility] 06/11/22 at 08, Routine
Indicatio ns: DVT/PE [Order 1 End] [Order 2 Start] Name: apixaban (ELIQUIS) tablet 5 mg Signed Summary: 5 mg, Oral, BID, First dose on [facility] 06/11/22 at 1999, Until Discontinu ed, Routine
Indicatio ns: DVT/PE [Order 2 End] apixaban 2022- Yes 10mg [Order 1 Univ ers (ELIQUIS) 06-05 Start] ity of tablet 10 01:00: 00:59 Name: Carina romeo 00 :00 apixaban Medical (ELIQUIS) Branch tablet 10 mg Signed Summary: 10 mg, Oral, BID, 14 doses, First dose on [facility] 06/04/22 at 1999, Last dose on [facility] 06/11/22 at 08, Routine
Indicatio ns: DVT/PE [Order 1 End] [Order 2 Start] Name: apixaban (ELIQUIS) tablet 5 mg Signed Summary: 5 mg, Oral, BID, First dose on [facility] 06/11/22 at 1999, Until Discontinu ed, Routine
Indicatio ns: DVT/PE [Order 2 End] bisacodyL Yes 10mg 10 mg, Univer s (DULCOLAX) 06-04 Rectal, ity of suppository 15:25: QDAILYPRN, [place] 10 mg 51 Starting Medical on [facility] 06/04/22 at 1025, Until Discontinu ed, Routine, Constipati on bisacodyL Yes 10mg 10 mg, Univer s (DULCOLAX) 06-04 Rectal, ity of suppository 15:25: QDAILYPRN, [place] 10 mg 51 Starting Medical on Sat Branch 06/04/22 at 1025, Until Discontinu ed, Routine, Constipati on argatroban 0 2023- No .15ug/k 0.15-2 U nivers 50 [...] platelet count and call physician< br> omeprazole 2023-0 Yes 20mg 20 mg, Unive rs (PRILOSEC) 4-22 Oral, ity of capsule 20 02:43: QDAILYPRN, [place] mg 53 Starting Medical on Mon Branch 06/03/22 at 2143, Until Discontinu ed, Routine, Indigestio n omeprazole 3-0 Yes 20mg 20 mg, Unive [...] Until Discontinu ed, Routine, PACU NaCl 0.9% 3-0 Yes 1000mL at 75 Unive rs (NS) IV 4-21 mL/hr, IV ity of infusion 18:00: Infusion, [place] 1,000 mL 00 CONTINUOUS Medic al , Starting Branch on Mon06/03/22 at 1300, Until Discontinu ed, Routine, PACU heparin 2022-0 2022- No PRN, Univers 10,000 06-0322 Starting ity of units in NS 14:25: 07:25 on Mon [place] 1000 mL for 00 :55 06/03/22 at [facility] 0925, Branch Intra-op heparin 2022-0 2022- No 0U/h 0-3,050 Univer s 25,000 06-02-22 Units/hr ity of Units/250 15:22: 07:25 (0-30.5 [place] mL 27 :20 mL/hr), IV Medical (Premixed Infusion, Branc h Bag) in D5W TITRATE, Parameters in Admin. Instr., Starting on Mon06/02/22 at 1022
In itiate dosing:&nb sp; & [...] INITIAL INFUSION RATE.&nbsp ; _ &nb sp;FOR [facility] ONLY &nbs p; - aPTT [...] Oral, ity of OIL EXTRA 14:00: DAILY, [place] HEAVY) oral 00 First dose Me dical liquid 30 on [place] Branch mL 06/02/22 at 0900, Until Discontinu ed, Routine mineral oil 0 Yes 30mL 30 mL, Univ ers (MINERAL 4-20 Oral, ity of OIL EXTRA 14:00: DAILY, [place] HEAVY) oral 00 First dose Me dical liquid 30 on [facility] 06/02/22 at 0900, Until Discontinu ed, Routine apixaban 2022- Yes 10mg [Order 1 Univ ers (ELIQUIS) 05-31 Start] ity of tablet 10 15:30: 12:59 Name: Carina romeo 00 :00 apixaban Medical (ELIQUIS) [place] tablet 10 mg Signed Summary: 10 mg, Oral, BID, 14 doses, First dose on Mon05/31/22 at 1030, Last dose on Mon06/06/22 at 2000, Routine
Indicatio ns: DVT/PE [Order 1 End] [Order 2 Start] Name: apixaban (ELIQUIS) tablet 5 mg Signed Summary: 5 mg, Oral, BID, First dose on [facility] 06/07/22 at 0800, Until Discontinu ed, Routine
Indicatio ns: DVT/PE [Order 2 End] docusate Yes 100mg 100 mg, Unive rs (COLACE) 05-31 Oral, ity of capsule 100 14:00: DAILY, [place] mg 00 First dose Medical on [facility] 05/31/22 at 0900, Until Discontinu ed, Routine docusate 0 Yes 100mg 100 mg, Unive rs (COLACE) 05-31 Oral, ity of capsule 100 14:00: DAILY, [place] mg 00 First dose Medical on [facility] 05/31/22 at 0900, Until Discontinu ed, Routine docusate 0 Yes 100mg 100 mg, Unive rs (COLACE) 05-31 Oral, ity of capsule 100 14:00: DAILY, [place] mg 00 First dose Medical on [facility] 05/31/22 at 0900, Until Discontinu ed, Routine docusate 0 Yes 100mg 100 mg, Unive rs (COLACE) 18 Oral, ity of capsule 100 14:00: DAILY, [place] mg 00 First dose Medical on [facility] 05/31/22 at 0900, Until Discontinu ed, Routine heparin 2022- No 0U/h 0-3,050 Univer s 25,000 05-3118 Units/hr ity of Units/250 05:09: 15:17 (0-30.5 [...] INITIAL INFUSION RATE.&nbsp ; _ &nb sp;FOR [facility], [facility], AND [facility] ONLY &nbs p; - aPTT < [...] therapeuti c levels are reached.<b r> iopamidol Yes PRN, Univers (ISOVUE-300 4-18 Starting ity of ) injection 02:47: on Mon 00 05/30/22 at [place] [id number], Branch Until Discontinu ed, Routine, Intra-op iopamidol 2023-0 Yes PRN, Univers (ISOVUE-300 4-18 Starting ity of ) injection 02:47: on Mon [place] 05/30/22 at [facility] 2147, Branch Until Discontinu ed, Routine, Intra-op iopamidol 2023-0 Yes PRN, Univers (ISOVUE-300 4-18 Starting ity of ) injection 02:47: on Mon [place] 05/30/22 at [facility] 2147, Branch Until Discontinu ed, Routine, Intra-op heparin 2023-0 Yes PRN, Univers 10,000 4-18 Starting ity of units in NS 01:26: on Mon [place] 1000 mL for 05/30/22 at [facility] 2025, Branch Intra-op heparin 3-0 [...] 0924
30 0 Units/hr. Non titratable
alteplase 2023-0 Yes .5mg/h 0.5 mg/hr U [...] all infusion sites combined.< br> alteplase 2023-0 2023- No .5mg/h 0.5 mg/hr Univers (CATHFLO 4- 04-18 (12.5 ity of ACTIVASE) 14:00: 05:10 mL/hr), IV [place] 20 mg in 00 :21 Infusion, Medica l NaCl 0.9% CONTINUOUS Bran ch (NS) 500 mL , Starting infusion on Mon05/30/22 at 0900
In fuse Via: infusion catheter. Location: left lower extremity sheath. Total infusion max dose is 4 mg/hr from all infusion sites combined.< br> alteplase 2023-0 2023- No .5mg/h 0.5 mg/hr Univers (CATHFLO 4-17 04-18 (12.5 ity of ACTIVASE) 14:00: 05:10 mL/hr), [...] Mon Branch 05/30/22 at 0615, Routine heparin 2022- No [...] INFUSION RATE.&nbsp ; _ &nb sp;FOR [facility] AND [facility] ONLY &nbs p; - aPTT < 35: & nbsp;Bolus 5000 units, increase rate 300 units/hr&n bsp; - aPTT 35-44:&nbs p; Brian brigid 3000 units, increase rate 200 units/hr&n bsp; - aPTT 45-54:&nbs p; In crease rate 100 units/hr&n bsp; - aPTT 55-85:&amp ;nbsp;&nbs p;NO CHANGE&nbs p; - aPTT 86-95:&nbs p; De crease rate 100 units/hr&a mp;nbsp; - aPTT 96-120:&nb sp; H old 30 [...] mg 53 Q4HPRN, Medical Starting Branch on [place] 05/29/22 at 2231, Until Discontinu ed, Routine, SBP > 160 and HR > 70 labetaloL 2023-0 Yes 10mg 10 mg, Univer s (NORMODYNE) 4-17 Slow IV ity o f injection 03:31: Push, [place] 10 mg 53 Q4HPRN, Medical Starting Branch on [place] 05/29/22 at 2231, Until Discontinu ed, Routine, SBP > 160 and HR > 70 labetaloL 2023-0 Yes 10mg 10 mg, Univer s (NORMODYNE) 4-17 Slow IV ity o f injection 03:31: Push, [place] 10 mg 53 Q4HPRN, Medical Starting Branch on [place] 05/29/22 at 2231, Until Discontinu ed, Routine, SBP > 160 and HR > 70 labetaloL 2023-0 Yes 10mg 10 mg, Univer s (NORMODYNE) 4-17 Slow IV ity o f injection 03:31: Push, [place] 10 mg 53 Q4HPRN, Medical Starting Branch on [place] 05/29/22 at 2231, Until Discontinu ed, Routine, SBP > 160 and HR > 70 traMADoL 3-0 Yes 50mg 50 mg, Univers (ULTRAM) 4-17 Oral, Q6H, ity o f tablet 50 01:45: First dose [place] mg 00 on [facility] 05/29/22 at Branch 2044, Until Discontinu ed, Routine traMADoL 3-0 Yes 50mg 50 mg, Univers (ULTRAM) 4-17 Oral, Q6H, ity o f tablet 50 01:45: First dose [place] mg 00 on [facility] 05/29/22 at Branch 2044, Until Discontinu ed, Routine traMADoL 2023-0 Yes 50mg 50 mg, Univers (ULTRAM) 4-17 Oral, Q6H, ity o f tablet 50 01:45: First dose [place] mg 00 on [facility] 05/29/22 at Branch 2044, Until Discontinu ed, Routine traMADoL 2023-0 Yes 50mg 50 mg, Univers (ULTRAM) 4-17 Oral, Q6H, ity o f tablet 50 01:45: First dose [place] mg 00 on [employer] [facility] 05/29/22 at Branch 2044, Until Discontinu ed, [...] (scale 7-10), Pain (scale 4-6) heparin 2022-0 2023- No 300U/h 300 Univers 25,000 05-29 04-17 Units/hr ity of Units/250 17:45: 06:05 (3 mL/hr), [place] mL 01 :58 IV Medical (Premixed Infusion, Branc h Bag) in TITRATE, 0.45 % NS Parameters in Admin. Instr., Starting on 05/29/22 at 1245
30 0 units non titratable
acetaminoph 2023-0 Yes 500mg 500 mg, Un [...] Pain (scale 4-6), Pain (scale 7-10) heparin 202-0 202- No 300U/h 300 Univers 25,000 05-29 04-17 Units/hr ity of Units/250 15:46: 14:20 (3 mL/hr), [place] mL 48 :43 IV Medical (Premixed Infusion, Branc h Bag) in TITRATE, 0.45 % NS Parameters in Admin. Instr., Starting on 05/29/22 at 1046
30 0 units/hr, non-titrat able
iodixanoL 202-0 Yes PRN, Univers (VISIPAQUE 4-16 Starting ity o f 270-150 mL) 13:50: on [place] injection 05/29/22 at [facility] 08, Branch Until Discontinu ed, Routine, Intra-op iodixanoL 3-0 Yes PRN, Univers (VISIPAQUE 4-16 Starting ity o f 270-150 mL) 13:50: on Sun [place] injection 05/29/22 at [facility] 08, Branch Until Discontinu ed, Routine, Intra-op iodixanoL 2022-0 Yes PRN, Univers (VISIPAQUE 4-16 Starting ity o f 270-150 mL) 13:50: on [place] injection 05/29/22 at [place] [id number], Branch Until Discontinu ed, Routine, Intra-op iodixanoL 2022-0 Yes PRN, Univers (VISIPAQUE 4-16 Starting ity o f 270-150 mL) 13:50: on Sun [place] injection 05/29/22 at [place] [id number], Branch Until Discontinu ed, Routine, Intra-op lidocaine 3-0 Yes PRN, Univers 1% (PF) 4-16 Starting ity of (XYLOCAINE) 13:00: on [place] injection 05/29/22 at [facility] 08, Branch Until Discontinu ed, Routine, Intra-op lidocaine 3-0 Yes PRN, Univers 1% (PF) 4-16 Starting ity of (XYLOCAINE) 13:00: on Sun [place] injection 05/29/22 at [facility] 08, Branch Until Discontinu ed, Routine, Intra-op lidocaine 2023-0 Yes PRN, Univers 1% (PF) 4-16 Starting ity of (XYLOCAINE) 13:00: on Sun [place] injection 05/29/22 at [facility] 08, Branch Until Discontinu ed, Routine, Intra-op lidocaine 3-0 Yes PRN, Univers 1% (PF) 4-16 Starting ity of (XYLOCAINE) 13:00: on Sun [place] injection 05/29/22 at [facility] 08, Branch Until Discontinu ed, Routine, Intra-op alteplase 2022-0 2022- No 1mg/h 1 mg/hr Uni vers (CATHFLO 05-29 (25 ity of ACTIVASE) 12:30: 13:58 mL/hr), IV [place] 20 mg in 00 :35 Infusion, Medica l NaCl 0.9% CONTINUOUS Bran ch (NS) 500 mL , Starting infusion on [place] 05/29/22 at 0730
In [facility] Via: infusion catheter. Location: left lower extremity sheath. Total infusion max dose is 4 mg/hr from all infusion sites combined.< br> alteplase 0 202- No 1mg/h 1 mg/hr Uni vers (CATHFLO 05-29 (25 ity of ACTIVASE) 12:30: 13:58 mL/hr), IV [place] 20 mg in 00 :35 Infusion, Medica l NaCl 0.9% CONTINUOUS Bran ch (NS) 500 mL , Starting infusion on [place] 05/29/22 at 0730
In fuse Via: infusion [...] ORDER SET 05/28/22 at 1130, MICHELLE heparin 2022-2022- No 0U/h 0-2,750 Univer s 25,000 05-28 04-16 Units/hr ity of Units/250 16:23: 15:43 [...] Rang e, Dosing and Testing: &nbs p;FOR [facility], AND [facility] ONLY &nbs p; - aPTT < [...] , Starting [place] mL vial) 36 on [facility] Medical for 05/28/22 at Branch Rebolusing 1123, Until Discontinu ed, Routine
Dosing based on aPPT testing parameters (refer to continuous heparin drip order).
sulfur 2022- No [id number] 5mL 5 mL, Univ ers hexafluorid 05-27 Intravenou i ty of e microsphr 18:30: 18:30 s, ONCE, 1 [place] (LUMASON) 00 :00 dose, On Medica l injection 5 Fri Branch mL 05/27/22 at 1330, Routine
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 Restricted medication : HAROON MOYER enoxaparin 2022- No 1mg/kg 90 mg Uni vers (LOVENOX) 05-27 (rounded ity o f injection 14:07: 16:25 from 86.5 [place] 90 mg 50 :10 mg = 1 Medical mg/kg Branch ?86.5 kg), Subcutaneo us, Q12H, First dose on Mon05/27/22 at 2000, Until Discontinu ed, Routine polyethylen 0 Yes 17g 17 g, Unive rs e glycol 4-14 Oral, ity of 3350 powder 14:00: DAILY, [place] 17 g 00 First dose Medical on Mon Branch 05/27/22 at 0900, Until Discontinu ed, Routine polyethylen 0 Yes 17g 17 g, Unive rs e glycol 4-14 Oral, ity of 3350 powder 14:00: DAILY, [place] 17 g 00 First dose Medical on Mon [place] 05/27/22 at 0900, Until Discontinu ed, Routine polyethylen 0 Yes 17g 17 g, Unive rs e glycol 4-14 Oral, ity of 3350 powder 14:00: DAILY, [place] 17 g 00 First dose Medical on Mon Branch 05/27/22 at 0900, Until Discontinu ed, Routine polyethylen 0 Yes 17g 17 g, Unive rs e glycol 4-14 Oral, ity of 3350 powder 14:00: DAILY, [place] 17 g 00 First dose Medical on Mon Branch 05/27/22 at 0900, Until Discontinu ed, Routine methocarbam 0 Yes 500mg 500 mg, Un mary oL -14 Oral, QID, ity of (ROBAXIN) 13:00: First dose [place] tablet 500 00 on Fri Medical mg 05/27/22 at Branch 0800, Until Discontinu ed, Routine gabapentin 0 Yes 300mg 300 mg, Uni vers (NEURONTIN) 4-14 Oral, TID, it y of capsule 300 13:00: First dose [place] mg 00 on [facility] 05/27/22 at [place] 08, Until Discontinu ed, Routine methocarbam 2023-0 Yes 500mg 500 mg, Un mary oL 4-14 Oral, QID, ity of (ROBAXIN) 13:00: First dose [place] tablet 500 00 on Mon Medical mg 05/27/22 at [place] 08, Until Discontinu ed, Routine gabapentin 2023-0 Yes 300mg 300 mg, Uni vers (NEURONTIN) -14 Oral, TID, it y of capsule 300 13:00: First dose [place] mg 00 on [facility] 05/27/22 at [place] 08, Until Discontinu ed, Routine methocarbam 2023-0 Yes 500mg 500 mg, Un mary oL 4-14 Oral, QID, ity of (ROBAXIN) 13:00: First dose [place] tablet 500 00 on [facility] Medical 05/27/22 at [place] 08, Until Discontinu ed, Routine methocarbam 2023-0 Yes 500mg 500 mg, Un mary oL 4-14 Oral, QID, ity of (ROBAXIN) 13:00: First dose [place] tablet 500 00 on Mon Medical 05/27/22 at [place] 08, Until Discontinu ed, Routine gabapentin 2022-0 2023- No 300mg 300 mg, Un mary (NEURONTIN) 05-27 Oral, TID, i ty of capsule 300 13:00: 04:23 First dose [place] mg 00 :21 on [facility] 05/27/22 at [place] 08, Until Discontinu ed, Routine iopamidol 2022-0 202- No [id number] 100mL 100 mL, Univers (ISOVUE 05-27 [id number] Intravenou ity of 370-500 mL) 12:15: 12:15 s, ONCE, 1 [place] injection 00 :00 dose, On Medica l 100 mL [facility] 05/27/22 at 0715, Routine ALPRAZolam 2022-0 2022- No .5mg 0.5 mg, Uni vers (XANAX) 05-27-14 Oral, ity of tablet 0.5 05:45: 05:15 ONCE, 1 [place] mg 00 :00 dose, On [facility] Fri Branch 05/27/22 at 0045, Routine cyclobenzap 2022- No 10mg 10 mg, Uni vers rine 05-27 Oral, ity of (FLEXERIL) 04:47: 17:03 TIDPRN, [place] tablet 10 48 :01 Starting Medica l mg on [facility] Branch 05/26/22 at 2347, Until 05/29/22 at 1203, Routine, Muscle Spasms HYDROcodone 2022- No 1{tbl} 1 tablet, Univers -acetaminop 05-27 Oral, ity of hen (NORCO 04:44: 17:03 Q6HPRN, [place] 5) 5-325 mg 15 :15 Starting Medi [place] tablet 1 on [facility] Branch tablet 05/26/22 at 2344, Until [place] 05/29/22 at 1203, Routine, Pain (scale 4-6) ondansetron 2023-0 Yes 4mg 4 mg, Slow Univers (ZOFRAN 4-14 IV Push, ity of (PF)) 01:30: Q6HPRN, [place] injection 4 58 Starting Medi gordon mg on [facility] Branch 05/26/22 at 2030, Until Discontinu ed, Routine, Nausea and Vomiting (N/V) ondansetron 2023-0 Yes 4mg 4 mg, Slow Univers (ZOFRAN 4-14 IV Push, ity of (PF)) 01:30: Q6HPRN, [place] injection 4 58 Starting Medi gordon mg on [facility] Branch 05/26/22 at 2030, Until Discontinu ed, Routine, Nausea and Vomiting (N/V) ondansetron 2023-0 Yes 4mg 4 mg, Slow Univers (ZOFRAN 4-14 IV Push, ity of (PF)) 01:30: Q6HPRN, [place] injection 4 58 Starting Medi gordon mg on [facility] Branch 05/26/22 at 2030, Until Discontinu ed, Routine, Nausea and Vomiting (N/V) ondansetron 2023-0 Yes 4mg 4 mg, Slow Univers (ZOFRAN 4-14 IV Push, ity of (PF)) 01:30: Q6HPRN, [place] injection 4 58 Starting Medi gordon mg on [place] Branch 05/26/22 at 2030, Until Discontinu ed, Routine, Nausea and Vomiting (N/V) morpHINE (2 2022- No 4mg 4 mg, Slow Univers mg/mL) 05-27 IV Push, ity of injection 4 01:30: 01:29 Q4HPRN, [place] mg 55 :55 Starting Medical on [facility] Branch 05/26/22 at 2030, Until 05/27/22 at 202, Routine, Pain (scale 7-10) methocarbam No 500mg 500 mg, U nivers oL 05-27 Oral, ity of (ROBAXIN) 00:00: 23:10 ONCE, 1 [place] tablet 500 00 :00 dose, On Medic al mg [facility] Branch 05/26/22 at 1900, Routine traMADoL No 50mg 50 mg, Univer s (ULTRAM) 05-26 Oral, ity of tablet 50 23:45: 23:10 ONCE, 1 [place] mg 00 :00 dose, On [facility] 05/26/22 at 1845, Routine gabapentin No 300mg 300 mg, Un mary (NEURONTIN) 05-26 Oral, ity of capsule 300 23:00: 23:10 ONCE, 1 [place] mg 00 :00 dose, On [facility] 05/26/22 at 1800, MICHELLE methylpredn No 125mg 125 mg, U nivers isolone sod 05-26 Slow IV ity of succ 22:15: 21:28 Push, [place] (SOLU-MEDRO 00 :00 ONCE, 1 Medic al L) dose, On Branch injection [place] 125 mg 05/26/22 at 1715, MICHELLE furosemide No 40mg 40 mg, IV U nivers (LASIX) 05-26 Push, ity of injection 21:15: 21:19 ONCE, 1 [place] 40 mg 00 :00 dose, On [facility] 05/26/22 at 1615, MICHELLE ketorolac 2022- No 30mg 30 mg, Unive rs (TORADOL) 05-23 Intramuscu ity of injection 23:00: 22:35 [place], ONCE, [place] 30 mg 00 :00 1 dose, On [facility] 05/23/22 at 1800, Routine diazePAM 0 2022- No 2.5mg 2.5 mg, Univ ers (VALIUM) 05-23 Oral, ity of tablet 2.5 22:45: 23:09 ONCE, 1 [place] mg 00 :00 dose, On [facility] 05/23/22 at 1745, MICHELLE HYDROcodone 2022-2022- No 1{tbl} 1 tablet, Univers -acetaminop 05-23 Oral, ONCE i ty of hen (NORCO) 11:45: 11:00 NOW, 1 [place] 10-325 mg 00 :00 dose, On Medica l tablet 1 [facility] tablet 05/23/22 at 0645, MICHELLE gabapentin 2022-0 2022- No 600mg 600 mg, Un mary (NEURONTIN) 05-23 Oral, ity of capsule 600 09:00: 09:09 ONCE, 1 [place] mg 00 :00 dose, On [facility] 05/23/22 at 0400, MICHELLE dexamethaso 2022- No 10mg 10 mg, Uni vers ne sod phos 05-23 Intramuscu i ty of PF 09:00: 09:07 lar, ONCE, [place] injection 00 :00 1 dose, On Medi gordon 10 mg [facility] 05/23/22 at 0400, 1 mL gabapentin 2022-0 Yes [id number] 300mg Take 1 Univers 300 mg 4-10 capsule by ity of capsule 00:00: mouth in [address] morning [place] and 1 capsule at noon and 1 capsule in the evening. gabapentin 2022-0 Yes [id number] 300mg Take 1 Univers 300 mg 4-10 capsule by ity of capsule 00:00: mouth in [address] Branch and 1 capsule at noon and 1 capsule in the evening. gabapentin 2022-0 Yes [id number] 300mg Take 1 Univers 300 mg 4-10 capsule by ity of capsule 00:00: mouth in [address] and 1 capsule at noon and 1 capsule in the evening. ketorolac 2023-0 Yes [id number] 10mg Take 1 U nivers 10 mg 4-10 tablet by ity of tablet 00:00: mouth [place] 00 every 6 Medical (six) Branch hours as needed for Pain (scale 7-10). gabapentin 2023-0 Yes [id number] 300mg Take 1 Univers 300 mg 4-10 capsule by ity of capsule 00:00: mouth in [place] 00 the Medical morning Branch and 1 capsule at noon and 1 capsule in the evening. ketorolac 2023-0 Yes [id number] 10mg Take 1 U nivers 10 mg 4-10 tablet by ity of tablet 00:00: mouth [place] 00 every 6 Medical (six) Branch hours as needed for Pain (scale 7-10). gabapentin 2023-0 Yes [id number] 300mg Take 1 Univers 300 mg 4-10 capsule by ity of capsule 00:00: mouth in [place] 00 the Medical morning Branch and 1 capsule at noon and 1 capsule in the evening. ketorolac 2023-0 Yes [id number] 10mg Take 1 U nivers 10 mg 4-10 tablet by ity of tablet 00:00: mouth [place] 00 every 6 Medical (six) Branch hours as needed for Pain (scale 7-10). gabapentin 2023-0 Yes [id number] 300mg Take 1 Univers 300 mg 4-10 capsule by ity of capsule 00:00: mouth in [place] 00 the Medical morning Branch and 1 capsule at noon and 1 capsule in the evening. ketorolac 2023-0 Yes [id number] 10mg Take 1 U nivers 10 mg 4-10 tablet by ity of tablet 00:00: mouth [place] 00 every 6 Medical (six) Branch hours as needed for Pain (scale 7-10). gabapentin 2023-0 Yes [id number] 300mg Take 1 Univers 300 mg 4-10 capsule by ity of capsule 00:00: mouth in [place] 00 the Medical morning Branch and 1 capsule at noon and 1 capsule in the evening. ketorolac 2023-0 Yes [id number] 10mg Take 1 U nivers 10 mg 4-10 tablet by ity of tablet 00:00: mouth [place] 00 every 6 Medical (six) Branch hours as needed for Pain (scale 7-10). gabapentin 2023-0 Yes [id number] 300mg Take 1 Univers 300 mg 4-10 capsule by ity of capsule 00:00: mouth in [place] 00 the Medical morning Branch and 1 capsule at noon and 1 capsule in the evening. ketorolac Yes [id number] 10mg Take 1 U nivers 10 mg 4-10 tablet by ity of tablet 00:00: mouth [place] 00 every 6 Medical (six) Branch hours as needed for Pain (scale 7-10). gabapentin 2022- No [id number] 300mg Take 1 Univers 300 mg 4-10 04-25 capsule by ity of capsule 00:00: 00:00 mouth in [place] 00 :00 the Medical morning Branch and 1 capsule at noon and 1 capsule in the evening. methocarbam 2022- No [id number] 500mg Take 1 Univers oL 500 mg 4-10 04-25 tablet by ity of tablet 00:00: 00:00 mouth 4 [place] 00 :00 ([facility]) Medical times Branch daily for 7 days. ketorolac 2022- No [id number] 10mg Take 1 Univers 10 mg 4-10 04-25 tablet by ity of tablet 00:00: 00:00 mouth [place] 00 :00 every 6 Medical (six) Branch hours as needed for Pain (scale 7-10). methocarbam 2022- Yes [id number] 500mg Take 1 Univers oL 500 mg 4-10 04-18 tablet by ity of tablet 00:00: 04:59 mouth 4 [place] 00 :00 ([facility]) Medical times Branch daily for 7 days. methocarbam 2022- Yes [id number] 500mg Take 1 Univers oL 500 mg 4-10 04-18 tablet by ity of tablet 00:00: 04:59 mouth 4 [place] 00 :00 (four) Medical times Branch daily for 7 days. methocarbam 2022- Yes [id number] 500mg Take 1 Univers oL 500 mg 4-10 04-18 tablet by ity of tablet 00:00: 04:59 mouth 4 [place] 00 :00 (four) Medical times Branch daily for 7 days. methocarbam 2022- No [id number] 500mg Take 1 Univers oL 500 mg 4-10 04-18 tablet by ity of tablet 00:00: 04:59 mouth 4 [place] 00 :00 (four) Medical times Branch daily for 7 days. methocarbam 2022-0 3- No [id number] 500mg Take 1 Univers oL 500 mg 05-23-18 tablet by ity of tablet 00:00: 04:59 mouth 4 [place] 00 :00 (four) Medical times Branch daily for 7 days. mirtazapine 2022-0 Yes [id number] 45mg Take 1 Univers 45 mg 2-23 tablet by ity of tablet 00:00: mouth at [place] 00 bedtime. Medical Branch mirtazapine 2022-0 Yes [id number] 45mg Take 1 Univers 45 mg 2-23 tablet by ity of tablet 00:00: mouth at [place] 00 bedtime. Medical Branch mirtazapine 2022-0 Yes [id number] 45mg Take 1 Univers 45 mg 2-23 tablet by ity of tablet 00:00: mouth at [place] [address] bedtime. Medical Branch mirtazapine 2022-0 Yes [id number] 45mg Take 1 Univers 45 mg 2-23 tablet by ity of tablet 00:00: mouth at [place] 00 bedtime. Medical Branch mirtazapine 2022-0 Yes [id number] 45mg Take 1 Univers 45 mg 2-23 tablet by ity of tablet 00:00: mouth at [place] 00 bedtime. Medical Branch mirtazapine 2022-0 Yes [id number] 45mg Take 1 Univers 45 mg 2-23 tablet by ity of tablet 00:00: mouth at [place] [address] bedtime. Medical Branch mirtazapine 2022-0 Yes [id number] 45mg Take 1 Univers 45 mg 2-23 tablet by ity of tablet 00:00: mouth at [place] 00 bedtime. Medical Branch mirtazapine 2022-0 Yes [id number] 45mg Take 1 Univers 45 mg 2-23 tablet by ity of tablet 00:00: mouth at [place] 00 bedtime. Medical Branch mirtazapine 2022-0 Yes [id number] 45mg Take 1 Univers 45 mg 2-23 tablet by ity of tablet 00:00: mouth at [place] [address] bedtime. Medical Branch mirtazapine 2022-0 Yes [id number] 45mg Take 1 Univers 45 mg 2-23 tablet by ity of tablet 00:00: mouth at [place] [address] bedtime. Medical Branch mirtazapine 2022-0 Yes [id number] 45mg Take 1 Univers 45 mg 2-23 tablet by ity of tablet 00:00: mouth at [place] [address] bedtime. Medical Branch mirtazapine 2022-0 Yes [id number] 45mg Take 1 Univers 45 mg 2-23 tablet by ity of tablet 00:00: mouth at [place] [address] bedtime. Medical Branch mirtazapine 2022-0 Yes [id number] 45mg Take 1 Univers 45 mg 2-23 tablet by ity of tablet 00:00: mouth at [place] [address] bedtime. Medical Branch mirtazapine 2022-0 Yes [id number] 45mg Take 1 Univers 45 mg 2-23 tablet by ity of tablet 00:00: mouth at [place] [address] bedtime. Medical Branch mirtazapine 2022-0 Yes [id number] 45mg Take 1 Univers 45 mg 2-23 tablet by ity of tablet 00:00: mouth at [place] [address] bedtime. Medical Branch mirtazapine 2022-0 Yes [id number] 45mg Take 1 Univers 45 mg 2-23 tablet by ity of tablet 00:00: mouth at [place] [address] bedtime. Medical Branch mirtazapine 2022-0 Yes [id number] 45mg Take 1 [facility] 45 mg 2-23 tablet by [facility] of tablet 00:00: mouth at [place] [address] bedtime. Medical Branch mirtazapine 2022-0 Yes [id number] 45mg Take 1 [facility] 45 mg 2-23 tablet by [facility] of tablet 00:00: mouth at [place] [address] bedtime. Medical Branch mirtazapine 2022-0 Yes [id number] 45mg Take 1 [facility] 45 mg 2-23 tablet by [facility] of tablet 00:00: mouth at [place] [address] bedtime. Medical Branch mirtazapine 2022-0 Yes [id number] 45mg Take 1 [facility] 45 mg 2-23 tablet by [facility] of tablet 00:00: mouth at [place] [address] bedtime. Medical Branch mirtazapine 3-0 Yes [id number] 45mg Take 1 [facility] 45 mg 2-23 tablet by it[facility] of tablet 00:00: mouth at [place] [address] bedtime. Medical Branch mirtazapine 3-0 Yes [id number] 45mg Take 1 [facility] 45 mg 2-23 tablet by it[facility] of tablet 00:00: mouth at [place] [address] bedtime. Medical Branch mirtazapine 2022-0 Yes [id number] 45mg Take 1 [facility] 45 mg 2-23 tablet by it[facility] of tablet 00:00: mouth at [place] [address] bedtime. Medical Branch mirtazapine 2022-0 Yes [id number] 45mg Take 1 [facility] 45 mg 2-23 tablet by it[facility] of tablet 00:00: mouth at [place] [address] bedtime. Medical Branch mirtazapine 2022-0 Yes [id number] 45mg Take 1 [facility] 45 mg 2-23 tablet by [facility] of tablet 00:00: mouth at [place] 00 bedtime. Medical Branch mirtazapine 2022-0 2023- No [id number] 45mg Take 1 [facility] 45 mg 2-23 04-25 tablet by it[facility] of tablet 00:00: 00:00 mouth at [place] 00 :00 bedtime. Medical Branch mirtazapine 2021-02 Yes [id number] 30mg Take 1 [facility] 30 mg 2-21 tablet by it[facility] of tablet 00:00: mouth at [place] [address] bedtime. Medical Branch mirtazapine 2021- Yes [id number] 30mg Take 1 [facility] 30 mg 2-21 tablet by it[facility] of tablet 00:00: mouth at [place] [address] bedtime. Medical Branch mirtazapine 2021-02 Yes [id number] 30mg Take 1 [facility] 30 mg 2-21 tablet by it[facility] of tablet 00:00: mouth at [place] [address] bedtime. Medical Branch mirtazapine 2021-02 Yes [id number] 30mg Take 1 [facility] 30 mg 2-21 tablet by ity of tablet 00:00: mouth at [place] [address] bedtime. Medical Branch mirtazapine 2021-1 Yes [id number] 30mg Take 1 [facility] 30 mg 2-21 tablet by it[facility] of tablet 00:00: mouth at [place] [address] bedtime. Medical Branch mirtazapine 2021- Yes [id number] 30mg Take 1 [facility] 30 mg 2-21 tablet by ity of tablet 00:00: mouth at [place] [address] bedtime. Medical Branch mirtazapine 2021-1 Yes [id number] 30mg Take 1 [facility] 30 mg 2-21 tablet by ity of tablet 00:00: mouth at [place] [address] bedtime. Medical Branch mirtazapine 2021- Yes [id number] 30mg Take 1 [facility] 30 mg 2-21 tablet by ity of tablet 00:00: mouth at [place] 00 bedtime. Medical Branch mirtazapine 2021-02 Yes [id number] 30mg Take 1 [facility] 30 mg 2-21 tablet by ity of tablet 00:00: mouth at [place] 00 bedtime. [facility] Branch mirtazapine 2021-02- No [id number] 30mg Take 1 [facility] 30 mg 2-21 -23 tablet by ity of tablet 00:00: 00:00 mouth at [place] 00 :00 bedtime. [facility] Branch mirtazapine 2021-02- No [id number] 30mg Take 1 [facility] 30 mg 2-21 -23 tablet by ity of tablet 00:00: 00:00 mouth at [place] 00 :00 bedtime. [facility] Branch traMADoL 50 2021-02 Yes 50mg Take 1 Univ ers mg tablet 2-08 tablet by ity o f 00:00: mouth in [place] [address] the Medical morning Branch and 1 tablet at noon and 1 tablet in the evening. traMADoL 50 2021-02 Yes 50mg Take 1 Univ ers mg tablet 2-08 tablet by ity o f 00:00: mouth in [place] [address] the Medical morning Branch and 1 tablet at noon and 1 tablet in the evening. traMADoL 50 2021-02 Yes 50mg Take 1 Univ ers mg tablet 2-08 tablet by ity o f 00:00: mouth in [place] the Medical morning Branch and 1 tablet at noon and 1 tablet in the evening. traMADoL 50 2021-02 Yes 50mg Take 1 Univ ers mg tablet 2-08 tablet by ity o f 00:00: mouth in [place] the Medical morning Branch and 1 tablet at noon and 1 tablet in the evening. traMADoL 50 2021-02 Yes 50mg Take 1 Univ ers mg tablet 2-08 tablet by ity o f 00:00: mouth in [place] [address] the Medical morning Branch and 1 tablet at noon and 1 tablet in the evening. traMADoL 50 2021-02 Yes 50mg Take 1 [facility] ers mg tablet 2-08 tablet by ity o f 00:00: mouth in [place] [address] the Medical morning Branch and 1 tablet at noon and 1 tablet in the evening. traMADoL 50 2021-02 Yes 50mg Take 1 [facility] ers mg tablet 2-08 tablet by ity o f 00:00: mouth in [place] [address] the Medical morning Branch and 1 tablet at noon and 1 tablet in the evening. traMADoL 50 2021-02 Yes 50mg Take 1 Univ ers mg tablet 2-08 tablet by ity o f 00:00: mouth in [place] 00 the Medical morning Branch and 1 tablet at noon and 1 tablet in the evening. traMADoL 50 2021-02 Yes 50mg Take 1 Univ ers mg tablet 2-08 tablet by ity o f 00:00: mouth in [place] 00 the Medical morning Branch and 1 tablet at noon and 1 tablet in the evening. traMADoL 50 2021-02 Yes 50mg Take 1 Univ ers mg tablet 2-08 tablet by ity o f 00:00: mouth in [place] 00 the Medical morning Branch and 1 tablet at noon and 1 tablet in the evening. traMADoL 50 2021-02 Yes 50mg Take 1 Univ ers mg tablet 2-08 tablet by ity o f 00:00: mouth in [place] [address] the Medical morning Branch and 1 tablet at noon and 1 tablet in the evening. traMADoL 50 2021-02 Yes 50mg Take 1 Univ ers mg tablet 2-08 tablet by ity o f 00:00: mouth in [place] [address] the Medical morning Branch and 1 tablet at noon and 1 tablet in the evening. traMADoL 50 2021-02 Yes 50mg Take 1 Univ ers mg tablet 2-08 tablet by ity o f 00:00: mouth in [place] the Medical morning Branch and 1 tablet at noon and 1 tablet in the evening. traMADoL 50 2021-02 Yes 50mg Take 1 [facility] ers mg tablet 2-08 tablet by ity o f 00:00: mouth in [place] the Medical morning Branch and 1 tablet at noon and 1 tablet in the evening. traMADoL 50 2021-02 Yes 50mg Take 1 [facility] ers mg tablet 2-08 tablet by ity o f 00:00: mouth in [place] [address] the Medical morning Branch and 1 tablet at noon and 1 tablet in the evening. traMADoL 50 2021- Yes 50mg Take 1 Univ ers mg tablet 2-08 tablet by ity o f 00:00: mouth in [place] [address] the Medical morning Branch and 1 tablet at noon and 1 tablet in the evening. traMADoL 50 2021- Yes 50mg Take 1 Univ ers mg tablet 2-08 tablet by ity o f 00:00: mouth in [place] [address] the Medical morning Branch and 1 tablet at noon and 1 tablet in the evening. traMADoL 50 2021-02 Yes 50mg Take 1 Univ ers mg tablet 2-08 tablet by ity o f 00:00: mouth in [place] 00 the Medical morning Branch and 1 tablet at noon and 1 tablet in the evening. traMADoL 50 2021-02 Yes 50mg Take 50 mg [facility] mg tablet 2-08 by mouth ity of 00:00: in the [place] morning Medical and 50 mg Branch at noon and 50 mg in the evening. traMADoL 50 2021-02 Yes 50mg Take 50 mg [facility] mg tablet 2-08 by mouth ity of 00:00: in the [place] morning Medical and 50 mg Branch at noon and 50 mg in the evening. traMADoL 50 2021-02 Yes 50mg Take 50 mg [facility] mg tablet 2-08 by mouth ity of 00:00: in the [place] morning Medical and 50 mg Branch at noon and 50 mg in the evening. traMADoL 50 2021-02 Yes 50mg Take 50 mg [facility] mg tablet 2-08 by mouth ity of 00:00: in the [place] morning Medical and 50 mg Branch at noon and 50 mg in the evening. traMADoL 50 2021-02 Yes 50mg Take 50 mg [facility] mg tablet 2-08 by mouth ity of 00:00: in the [place] morning Medical and 50 mg Branch at noon and 50 mg in the evening. traMADoL 50 2021-02 Yes 50mg Take 50 mg [facility] mg tablet 2-08 by mouth ity of 00:00: in the [place] morning Medical and 50 mg Branch at noon and 50 mg in the evening. traMADoL 50 2021-02 Yes 50mg Take 50 mg [facility] mg tablet 2-08 by mouth ity of 00:00: in the [place] morning Medical and 50 mg Branch at noon and 50 mg in the evening. traMADoL 50 2021-02 Yes 50mg Take 50 mg [facility] mg tablet 2-08 by mouth ity of 00:00: in the [place] morning Medical and 50 mg Branch at noon and 50 mg in the evening. traMADoL 50 2021-1 Yes 50mg Take 50 mg [facility] mg tablet 2-08 by mouth ity of 00:00: in the [place] morning Medical and 50 mg Branch at noon and 50 mg in the evening. traMADoL 50 2021-02 Yes 50mg Take 50 mg [facility] mg tablet 2-08 by mouth ity of 00:00: in the [place] 00 morning Medical and 50 mg Branch at noon and 50 mg in the evening. traMADoL 50 2021-02 Yes 50mg Take 50 mg [facility] mg tablet 2-08 by mouth ity of 00:00: in the [place] 00 morning Medical and 50 mg Branch at noon and 50 mg in the evening. traMADoL 50 2021-02 Yes 50mg Take 50 mg [facility] mg tablet 2-08 by mouth ity of 00:00: in the [place] morning Medical and 50 mg Branch at noon and 50 mg in the evening. traMADoL 50 2021-02 Yes 50mg Take 50 mg [facility] mg tablet 2-08 by mouth ity of 00:00: in the [place] 00 morning Medical and 50 mg Branch at noon and 50 mg in the evening. traMADoL 50 2021-02 Yes 50mg Take 50 mg [facility] mg tablet 2-08 by mouth ity of 00:00: in the [place] morning Medical and 50 mg Branch at noon and 50 mg in the evening. traMADoL 50 2021-02 Yes 50mg Take 1 Univ ers mg tablet 2-08 tablet by ity o f 00:00: mouth in [place] 00 the Medical morning Branch and 1 tablet at noon and 1 tablet in the evening. traMADoL 50 2021-02 Yes 50mg Take 1 Univ ers mg tablet 2-08 tablet by ity o f 00:00: mouth in [place] 00 the Medical morning Branch and 1 tablet at noon and 1 tablet in the evening. traMADoL 50 2021-02 Yes 50mg Take 1 Univ ers mg tablet 2-08 tablet by ity o f 00:00: mouth in [place] 00 the Medical morning Branch and 1 tablet at noon and 1 tablet in the evening. traMADoL 50 2021-02- 50mg Take 1 Uni vers mg tablet 2-08 04-25 tablet by ity of 00:00: 00:00 mouth in [place] 00 :00 the Medical morning Branch and 1 tablet at noon and 1 tablet in the evening. mirtazapine 2021-02 Yes [id number] 15mg Take 1 [facility] 15 mg 1-21 tablet by ity of tablet 00:00: mouth at [place] [address] bedtime. Medical Branch mirtazapine 2021-02 Yes [id number] 15mg Take 1 [facility] 15 mg 1-21 tablet by ity of tablet 00:00: mouth at [place] 00 bedtime. Medical Branch mirtazapine 2021-02 Yes [id number] 15mg Take 1 [facility] 15 mg 1-21 tablet by ity of tablet 00:00: mouth at [place] 00 bedtime. Medical Branch mirtazapine 2021-02- No [id number] 15mg Take 1 [facility] 15 mg 1-21 12-21 tablet by ity of tablet 00:00: 00:00 mouth at [place] 00 :00 bedtime. [facility] Branch mirtazapine 2021-02- No [id number] 15mg Take 1 [facility] 15 mg 1-21 12-21 tablet by ity of tablet 00:00: 00:00 mouth at [place] 00 :00 bedtime. [facility] Branch vortioxetin 2021-02 Yes [id number] 5mg Take 1 Univers e 0-20 tablet by ity of (TRINTELLIX 00:00: mouth in [place] ) 5 mg Tab 00 the Medical morning. Branch vortioxetin 2021-02 Yes [id number] 5mg Take 1 [facility] e 0-20 tablet by ity of (TRINTELLIX 00:00: mouth in [place] ) 5 mg Tab 00 the Medical morning. Branch vortioxetin 2021-02 Yes [id number] 5mg Take 1 [facility] e 0-20 tablet by ity of (TRINTELLIX 00:00: mouth in [place] ) 5 mg Tab 00 the Medical morning. Branch vortioxetin 2021-02 Yes [id number] 5mg Take 1 [facility] e 0-20 tablet by ity of (TRINTELLIX 00:00: mouth in [place] ) 5 mg Tab 00 the Medical morning. Branch vortioxetin 2021-02 Yes [id number] 5mg Take 1 [facility] e 0-20 tablet by ity of (TRINTELLIX 00:00: mouth in [place] ) 5 mg Tab 00 the Medical morning. Branch vortioxetin 2021-02 Yes [id number] 5mg Take 1 [facility] e 0-20 tablet by ity of (TRINTELLIX 00:00: mouth in [place] ) 5 mg Tab 00 the Medical morning. Branch vortioxetin 2021-02- No [id number] 5mg Take 1 [facility] e 0-20 11-21 tablet by ity of (TRINTELLIX 00:00: 00:[place] 5 mg Tab 00 :00 the Medical morning. Branch vortioxetin 2021-02- No [id number] 5mg Take 1 [facility] e 0-20 11-21 tablet by ity of (TRINTELLIX 00:00: 00:00 mouth in [place] ) 5 mg Tab 00 :00 the Medical morning. Branch DULoxetine Yes [id number] 20mg Take 1 [facility] 20 mg 9-20 capsule by ity of capsule 00:00: mouth in [place] 00 the Medical morning. Branch DULoxetine 0 Yes [id number] 20mg Take 1 [facility] 20 mg 9-20 capsule by ity of capsule 00:00: mouth in [place] 00 the Medical morning. Branch DULoxetine Yes [id number] 20mg Take 1 [facility] 20 mg 9-20 capsule by ity of capsule 00:00: mouth in [place] 00 the Medical morning. Branch DULoxetine Yes [id number] 20mg Take 1 [facility] 20 mg 9-20 capsule by ity of capsule 00:00: mouth in [place] 00 the Medical morning. Branch DULoxetine 0 Yes [id number] 20mg Take 1 [facility] 20 mg 9-20 capsule by ity of capsule 00:00: mouth in [place] 00 the Medical morning. Branch DULoxetine 2021- No [id number] 20mg Take 1 [facility] 20 mg 9-20 10-20 capsule by ity of capsule 00:00: 00:00 mouth in [place] 00 :00 the Medical morning. Branch DULoxetine 2021- No [id number] 20mg Take 1 [facility] 20 mg 9-20 10-20 capsule by ity of capsule 00:00: 00:00 mouth in [place] 00 :00 the Medical morning. Branch gabapentin 2021-0 Yes [id number] 300mg Take 1 [facility] 300 mg 8-23 capsule by ity of capsule 00:00: mouth at [place] [address] bedtime. Medical Branch gabapentin 2021-0 Yes [id number] 300mg Take 1 [facility] 300 mg 8-23 capsule by ity of capsule 00:00: mouth at [place] [address] bedtime. Medical Branch gabapentin 2021-0 Yes [id number] 300mg Take 1 [facility] 300 mg 8-23 capsule by ity of capsule 00:00: mouth at [place] 00 bedtime. Medical Branch gabapentin 2021-2021- No [id number] 300mg Take 1 [facility] 300 mg 10-05 capsule by ity of capsule 00:00: 00:00 mouth at [place] 00 :00 bedtime. Medical Branch gabapentin 2021-2021- No [id number] 300mg Take 1 [facility] 300 mg 10-05 capsule by ity of capsule 00:00: 00:00 mouth at [place] 00 :00 bedtime. Medical Branch mirtazapine 2021-2021- No 30mg Take 30 mg [facility] 30 mg 09-20 by mouth ity of tablet 00:00: 00:00 in the [place] 00 :00 morning. Medical Branch mirtazapine 2021-2021- No 30mg Take 30 mg [facility] 30 mg 09-20 by mouth ity of tablet 00:00: 00:00 in the [place] 00 :00 morning. Medical Branch sertraline 2020-0 [...] 20:45: daily. [facility] l Saline 2015-0 No Notes: [facility] Flush 0.9% 6-09 (Same as: l 18:36: BD [place] 00 Posiflush) Saline No Notes: [facility] Flush 0.9% 6-09 (Same as: l 18:36: BD [place] 00 Posiflush) Saline No Notes: [facility] Flush 0.9% 6-09 (Same as: l 18:36: BD [place] 00 Posiflush) Saline No Notes: [facility] Flush 0.9% 6-09 (Same as: l 18:36: BD [place] 00 Posiflush) Saline No Notes: [facility] Flush 0.9% 6-09 (Same as: l 18:36: BD [place] 00 Posiflush) Saline No Notes: [facility] Flush 0.9% 6-09 (Same as: l 18:36: BD [place] 00 Posiflush) Saline No Notes: [facility] Flush 0.9% 6-09 (Same as: l 18:36: BD [place] 00 Posiflush) Saline No Notes: [facility] Flush 0.9% 6-09 (Same as: l 18:36: BD [place] 00 Posiflush) Saline No Notes: [facility] Flush 0.9% 6-09 (Same as: l 18:36: BD [place] 00 Posiflush) Saline No Notes: [facility] Flush 0.9% 6-09 (Same as: l 18:36: BD [place] 00 Posiflush) Saline No Notes: [facility] Flush 0.9% 6-09 (Same as: l 18:36: BD [place] 00 Posiflush) Saline No Notes: [facility] Flush 0.9% 6-09 (Same as: l 18:36: BD [place] 00 Posiflush) Saline No Notes: [facility] Flush 0.9% 6-09 (Same as: l 18:36: BD [place] 00 Posiflush) Saline No Notes: [facility] Flush 0.9% 6-09 (Same as: l 18:36: BD [place] 00 Posiflush) Saline No Notes: [facility] Flush 0.9% 6-09 (Same as: l 18:36: BD [place] 00 Posiflush) Saline No Notes: [facility] Flush 0.9% 6-09 (Same as: l 18:36: BD [place] 00 Posiflush) Saline No Notes: [facility] Flush 0.9% 6-09 (Same as: l 18:36: BD [place] 00 Posiflush) Saline No Notes: [facility] Flush 0.9% 6-09 (Same as: l 18:36: BD [place] 00 Posiflush) Saline No Notes: [facility] Flush 0.9% 6-09 (Same as: l 18:36: BD [place] 00 Posiflush) Saline No Notes: [facility] Flush 0.9% 6-09 (Same as: l 18:36: BD [place] 00 Posiflush) Saline No Notes: [facility] Flush 0.9% 6-09 (Same as: l 18:36: BD [place] 00 Posiflush) Saline No Notes: [facility] Flush 0.9% 6-09 (Same as: l 18:36: BD [place] 00 Posiflush) Saline No Notes: [facility] Flush 0.9% 6-09 (Same as: l 18:36: BD [place] 00 Posiflush) Saline No Notes: [facility] Flush 0.9% 6-09 (Same as: l 18:36: BD [place] 00 Posiflush) Saline No Notes: [facility] Flush 0.9% 6-09 (Same as: l 18:36: BD [place] 00 Posiflush) Saline No Notes: [facility] Flush 0.9% 6-09 (Same as: l 18:36: BD [place] 00 Posiflush) Saline No Notes: [facility] Flush 0.9% 6-09 (Same as: l 18:36: BD [place] 00 Posiflush) Saline No Notes: [facility] Flush 0.9% 6-09 (Same as: l 18:36: BD [place] 00 Posiflush) Vital Signs Vital Name Observation Time Observation Value Comments Source WEIGHT 2022-07-12 06:00:00 86 kg WEIGHT 2022-07-12 06:00:00 86 kg Systolic blood 2022-07-11 15:10:00 117 mm[Hg] [facility] of pressure [place] [facility] Diastolic blood 2022-07-11 15:10:00 68 mm[Hg] Unive rsity of pressure [place] [facility] Heart rate 2022-07-11 15:10:00 74 /min [facility] [place] [facility] Body temperature 2022-07-11 15:10:00 36.94 [facility] [place] [facility] Respiratory rate 2022-07-11 15:10:00 18 /min [facility] [place] [facility] Body weight 2022-07-11 15:10:00 90.719 kg [facility] [place] [facility] BMI 2022-07-11 15:10:00 32.28 kg/m2 [facility] [place] [facility] Oxygen saturation in 2022-07-11 15:10:00 98 /min [facility] of Arterial blood by [facility] Pulse oximetry Branch Systolic blood 2022-07-11 11:20:00 133 mm[Hg] Univer sity of pressure [place] [facility] Diastolic blood 2022-07-11 11:20:00 69 mm[Hg] Unive rsity of pressure [place] [facility] Heart rate 2022-07-11 11:20:00 78 /min [facility] [place] [facility] Respiratory rate 2022-07-11 11:20:00 18 /min [facility] [place] [facility] Oxygen saturation in 2022-07-11 11:20:00 99 /min [facility] of Arterial blood by [facility] Pulse oximetry Branch Body temperature 2022-07-11 09:24:00 36.83 [facility] [place] [facility] Body weight 2022-07-11 09:24:00 90.719 kg [facility] [place] [facility] BMI 2022-07-11 09:24:00 32.28 kg/m2 [facility] [place] [facility] Systolic blood 2022-07-08 18:24:00 130 mm[Hg] Univer sity of pressure [place] [facility] Diastolic blood 2022-07-08 18:24:00 57 mm[Hg] Unive rsity of pressure [place] [facility] Heart rate 2022-07-08 18:24:00 87 /min [facility] [place] [facility] Body temperature 2022-07-08 18:24:00 36.72 [facility] [place] [facility] Respiratory rate 2022-07-08 18:24:00 18 /min [facility] [place] [facility] Body weight 2022-07-08 18:24:00 90.719 kg [facility] [place] [facility] BMI 2022-07-08 18:24:00 32.28 kg/m2 [facility] [place] [facility] [place] Oxygen saturation in 2022-07-08 18:24:00 97 /min [facility] of Arterial blood by [facility] gordon Pulse oximetry Branch Systolic blood 2022-07-05 14:00:00 155 mm[Hg] Univer sity of pressure [place] [facility] Diastolic blood 2022-07-05 14:00:00 80 mm[Hg] [facility]ive rsity of [facility] Heart rate 2022-07-05 14:00:00 76 /min [facility] [place] [facility] Body temperature 2022-07-05 14:00:00 37.56 [facility] [place] [facility] Respiratory rate 2022-07-05 14:00:00 16 /min [facility] [place] [facility] Oxygen saturation in 2022-07-05 14:00:00 98 /min [facility] of Arterial blood by [facility] gordon Pulse oximetry Branch Body weight 2022-07-05 10:49:00 90.719 kg [facility] [place] [facility] BMI 2022-07-05 10:49:00 32.28 kg/m2 [facility] [place] [facility] HEIGHT 2022-06-21 11:16:00 167.6 cm WEIGHT 2022-06-21 11:16:00 87.181 kg HEIGHT 2022-06-21 11:16:00 167.6 cm WEIGHT 2022-06-21 11:16:00 87.181 kg Systolic blood 2022-06-16 16:05:00 112 mm[Hg] Univer sity of pressure [place] [facility] Diastolic blood 2022-06-16 16:05:00 72 mm[Hg] Unive rsity of pressure [place] [facility] Heart rate 2022-06-16 16:05:00 90 /min [facility] [place] [facility] Body temperature 2022-06-16 16:05:00 36.72 [facility] [place] [facility] Respiratory rate 2022-06-16 16:05:00 16 /min [facility] [place] [facility] Body height 2022-06-16 16:05:00 167.6 cm [facility] [place] [facility] Body weight 2022-06-16 16:05:00 91.173 kg [facility] [place] [facility] BMI 2022-06-16 16:05:00 32.44 kg/m2 [facility] [place] [facility] Oxygen saturation in 2022-06-16 16:05:00 100 /min [facility] Arterial blood by [place] [facility] Pulse oximetry Branch Systolic blood 2022-06-07 18:25:00 140 mm[Hg] Univer sity of pressure [place] [facility] Diastolic blood 2022-06-07 18:25:00 74 mm[Hg] Unive rsity of pressure [place] [facility] Heart rate 2022-06-07 18:25:00 70 /min [facility] [place] [facility] Body temperature 2022-06-07 18:25:00 36.44 [facility] [place] [facility] Respiratory rate 2022-06-07 18:25:00 20 /min [facility] [place] [facility] Oxygen saturation in 2022-06-07 18:25:00 100 /min [facility] Arterial blood by [place] [facility] Pulse oximetry Branch Body weight 2022-05-27 08:00:00 86.456 kg [facility] [place] [facility] BMI 2022-05-27 08:00:00 30.76 kg/m2 [facility] [place] [facility] Body height 2022-05-27 02:20:00 167.6 cm [facility] [place] [facility] Systolic blood 2022-06-03 10:48:00 136 mm[Hg] Univer sity of pressure [place] [facility] Diastolic blood 2022-06-03 10:48:00 67 mm[Hg] Unive rsity of pressure [place] [facility] Heart rate 2022-06-03 10:48:00 80 /min [facility] [place] [facility] Body temperature 2022-06-03 10:48:00 36.28 [facility] [place] [facility] Respiratory rate 2022-06-03 10:48:00 18 /min [facility] [place] [facility] Oxygen saturation in 2022-06-03 10:48:00 97 /min [facility] Arterial blood by [place] [facility] Pulse oximetry Branch Body weight 2022-05-27 08:00:00 86.456 kg [facility] [place] [facility] BMI 2022-05-27 08:00:00 30.76 kg/m2 [facility] [place] [facility] Body height 2022-05-27 02:20:00 167.6 cm [facility] [place] [facility] Systolic blood 2022-05-31 01:00:00 116 mm[Hg] Univer sity of pressure [place] [facility] Diastolic blood 2022-05-31 01:00:00 68 mm[Hg] Unive rsity of pressure [place] [facility] Heart rate 2022-05-31 01:00:00 79 /min [facility] [place] [facility] Body temperature 2022-05-31 01:00:00 37.78 [facility] [place] [facility] Respiratory rate 2022-05-31 01:00:00 14 /min [facility] [place] [facility] Oxygen saturation in 2022-05-31 01:00:00 96 /min [facility] of Arterial blood by [place] [facility] Pulse oximetry Branch Body weight 2022-05-27 08:00:00 86.456 kg [facility] [place] [facility] BMI 2022-05-27 08:00:00 30.76 kg/m2 [facility] [place] [facility] Body height 2022-05-27 02:20:00 167.6 cm [facility] [place] [facility] Systolic blood 2022-05-29 15:15:00 138 mm[Hg] Univer sity of pressure [place] [facility] Diastolic blood 2022-05-29 15:15:00 81 mm[Hg] Unive rsity of pressure [place] [facility] Heart rate 2022-05-29 15:15:00 62 /min [facility] [place] [facility] Body temperature 2022-05-29 15:15:00 36.39 [facility] [place] [facility] Respiratory rate 2022-05-29 15:15:00 18 /min [facility] [place] [facility] Oxygen saturation in 2022-05-29 15:15:00 100 /min [facility] Arterial blood by [place] [facility] Pulse oximetry Branch Body weight 2022-05-27 08:00:00 86.456 kg [facility] [place] [facility] BMI 2022-05-27 08:00:00 30.76 kg/m2 [facility] [place] [facility] Body height 2022-05-27 02:20:00 167.6 cm [facility] [place] [facility] Systolic blood 2022-05-23 21:38:00 137 mm[Hg] Univer sity of pressure [place] [facility] Diastolic blood 2022-05-23 21:38:00 89 mm[Hg] Unive rsity of pressure [place] [facility] Heart rate 2022-05-23 21:38:00 100 /min [facility] [place] [facility] Body temperature 2022-05-23 21:38:00 36.67 [facility] [place] [facility] Respiratory rate 2022-05-23 21:38:00 20 /min [facility] [place] [facility] Body weight 2022-05-23 21:38:00 81.647 kg [facility] [place] [facility] BMI 2022-05-23 21:38:00 29.05 kg/m2 [facility] [place] [facility] Oxygen saturation in 2022-05-23 21:38:00 100 /min [facility] Arterial blood by [place] [facility] Pulse oximetry Branch Systolic blood 2022-05-23 10:00:00 144 mm[Hg] [facility] Diastolic blood 2022-05-23 10:00:00 79 mm[Hg] [facility] Heart rate 2022-05-23 10:00:00 77 /min [facility] Respiratory rate 2022-05-23 10:00:00 14 /min [facility] Oxygen saturation in 2022-05-23 10:00:00 96 /min [facility] Arterial blood by [place] [facility] Pulse oximetry Branch Body temperature 2022-05-23 08:49:00 36.72 Nita [facility] Body height 2022-05-23 08:49:00 167.6 cm [facility] Body weight 2022-05-23 08:49:00 81.647 kg [facility] BMI 2022-05-23 08:49:00 29.05 kg/m2 [facility] Systolic blood 2022-05-19 14:32:00 153 mm[Hg] [facility] Diastolic blood 2022-05-19 14:32:00 82 mm[Hg] [facility] Heart rate 2022-05-19 14:31:00 86 /min [facility] Body temperature 2022-05-19 14:31:00 36.11 Nita [facility] Body height 2022-05-19 14:31:00 167.6 cm [facility] Body weight 2022-05-19 14:31:00 87.544 kg [facility] BMI 2022-05-19 14:31:00 31.15 kg/m2 [facility] Oxygen saturation in 2022-05-19 14:31:00 97 /min [facility] Arterial blood by [employer] Pulse oximetry Branch Systolic blood 2022-05-03 14:51:00 136 mm[Hg] [facility] Diastolic blood 2022-05-03 14:51:00 80 mm[Hg] [facility] Heart rate 2022-05-03 14:51:00 68 /min [facility] Body height 2022-05-03 14:51:00 167.6 cm [facility] Body weight 2022-05-03 14:51:00 84.369 kg [facility] BMI 2022-05-03 14:51:00 30.02 kg/m2 [facility] Systolic blood 2022-04-13 15:41:00 128 mm[Hg] [facility] Diastolic blood 2022-04-13 15:41:00 88 mm[Hg] [facility] Heart rate 2022-04-13 15:41:00 88 /min [facility] Respiratory rate 2022-04-13 15:41:00 18 /min [facility] Body height 2022-04-13 15:41:00 167.6 cm [facility] Body weight 2022-04-13 15:41:00 86.047 kg [facility] BMI 2022-04-13 15:41:00 30.62 kg/m2 [facility] Oxygen saturation in 2022-04-13 15:41:00 96 /min [facility] Arterial blood by [place] [facility] Pulse oximetry Branch Systolic blood 2022-04-07 16:41:00 162 mm[Hg] Univer sity of pressure [facility] Diastolic blood 2022-04-07 16:41:00 89 mm[Hg] Unive rsity of pressure [facility] Heart rate 2022-04-07 16:41:00 81 /min [facility] Body weight 2022-04-07 16:39:00 86.183 kg [facility] BMI 2022-04-07 16:39:00 30.67 kg/m2 [facility] Systolic blood 2022-02-02 15:24:00 133 mm[Hg] Univer sity of pressure [facility] Diastolic blood 2022-02-02 15:24:00 82 mm[Hg] Unive rsity of pressure [facility] Heart rate 2022-02-02 15:24:00 82 /min [facility] [place] [facility] [place] Body height 2022-02-02 15:24:00 167.6 cm [facility] Body weight 2022-02-02 15:24:00 83.008 kg [facility] BMI 2022-02-02 15:24:00 29.54 kg/m2 [facility] Systolic blood 2022-01-03 15:07:00 129 mm[Hg] [facility] Diastolic blood 2022-01-03 15:07:00 82 mm[Hg] Unive rsity of pressure [facility] Heart rate 2022-01-03 15:07:00 76 /min [facility] Body temperature 2022-01-03 15:07:00 36.83 Nita Univ ersity of [facility] Body height 2022-01-03 15:07:00 167.6 cm [facility] Body weight 2022-01-03 15:07:00 83.462 kg [facility] BMI 2022-01-03 15:07:00 29.70 kg/m2 Universi ty of [facility] Systolic blood 2021-12-08 15:22:00 144 mm[Hg] [facility] Diastolic blood 2021-12-08 15:22:00 84 mm[Hg] [facility] Heart rate 2021-12-08 15:18:00 70 /min [facility] Body height 2021-12-08 15:18:00 167.6 cm [facility] Body weight 2021-12-08 15:18:00 83.326 kg [facility] BMI 2021-12-08 15:18:00 29.65 kg/m2 Universi ty of [facility] Oxygen saturation in 2021-12-08 15:18:00 100 /min University Arterial blood by [facility] Pulse oximetry Branch Systolic blood 2021-12-02 16:05:00 130 mm[Hg] [facility] [place] Diastolic blood 2021-12-02 16:05:00 78 mm[Hg] Unive rsity of pressure [facility] Heart rate 2021-12-02 16:05:00 61 /min Universi ty of [facility] Body temperature 2021-12-02 16:05:00 37.22 Nita Univ ersity of [facility] Body height 2021-12-02 16:05:00 167.6 cm [facility] Body weight 2021-12-02 16:05:00 84.369 kg [facility] BMI 2021-12-02 16:05:00 30.02 kg/m2 [facility] Systolic blood 2021-11-02 14:34:00 133 mm[Hg] [facility] Diastolic blood 2021-11-02 14:34:00 79 mm[Hg] Unive rsity of pressure [facility] Heart rate 2021-11-02 14:34:00 80 /min [facility] Body height 2021-11-02 14:34:00 167.6 cm [facility] Body weight 2021-11-02 14:34:00 84.823 kg [facility] BMI 2021-11-02 14:34:00 30.18 kg/m2 [facility] Systolic blood 2021-10-05 19:18:00 152 mm[Hg] [facility] Diastolic blood 2021-10-05 19:18:00 87 mm[Hg] Unive rsity of pressure [facility] Heart rate 2021-10-05 19:18:00 83 /min [facility] Body temperature 2021-10-05 19:18:00 37.33 Nita [facility] Body height 2021-10-05 19:18:00 167.6 cm Universi [facility] Body weight 2021-10-05 19:18:00 86.637 kg [facility] BMI 2021-10-05 19:18:00 30.83 kg/m2 [facility] Oxygen saturation in 2021-10-05 19:18:00 99 /min [facility] Arterial blood by [facility] Pulse oximetry Branch Heart rate 2022-06-23 15:28:08 91 /min [facility] Respiratory rate 2022-06-23 15:28:08 18 /min [facility] Oxygen saturation in 2022-06-23 15:28:08 100 /min [facility] Arterial blood by Medical nter Pulse oximetry Body temperature 2022-06-23 15:28:04 36.89 Nita [facility] Systolic blood 2022-06-23 15:27:00 144 mm[Hg] [facility] Diastolic blood 2022-06-23 15:27:00 79 mm[Hg] [facility] Body height 2022-06-21 11:16:00 167.6 cm [facility] Body weight 2022-06-21 11:16:00 87.181 kg [facility] BMI 2022-06-21 11:16:00 31.02 kg/m2 [facility] Initial DRG Weight: 2020-02-15 05:04:52 [...] Temperature 2020-02-15 05:04:52 36.6\\S\\97.9 Weight 2020-02-15 05:04:52 09479\\S\\2627.91 Weight Measurement 2020-02-15 05:04:52 Built in Bedscale [...] Temperature 2020-02-10 08:28:02 36.6\\S\\97.9 Weight 2020-02-10 08:28:02 60403\\S\\2627.91 Weight Measurement 2020-02-10 08:28:02 Built in Bedscale [...] Temperature 2020-02-06 14:55:36 36.6\\S\\97.9 Weight 2020-02-06 14:55:36 58058\\S\\2627.91 Weight Measurement 2020-02-06 14:55:36 Built in [employer] Method Initial DRG Weight: 2020-02-06 14:55:36 0.8372 [...] Temperature 2020-02-06 12:25:52 36.7\\S\\98.1 Weight 2020-02-06 12:25:52 93925\\S\\2627.91 Weight Measurement 2020-02-06 12:25:52 Built in Bedscale [...] Temperature 2020-02-04 14:40:56 36.3\\S\\97.3 Weight 2020-02-04 14:40:56 68392\\S\\2627.91 Weight Measurement 2020-02-04 14:40:56 Built in Bedscale [...] Temperature 2020-02-04 12:53:01 36.3\\S\\97.3 Weight 2020-02-04 12:53:01 56319\\S\\2627.91 Weight Measurement 2020-02-04 12:53:01 Built in Bedscale [...] Temperature 2020-02-04 10:07:56 36.7\\S\\98.1 Weight 2020-02-04 10:07:56 80649\\S\\2627.91 Weight Measurement 2020-02-04 10:07:56 Built in Bedscale [...] Temperature 2020-02-04 06:31:28 36.7\\S\\98.1 Weight 2020-02-04 06:31:28 02450\\S\\2627.91 Weight Measurement 2020-02-04 06:31:28 Built in Bedscale [...] Temperature 2020-02-03 15:40:21 37.1\\S\\98.8 Weight 2020-02-03 15:40:21 83330\\S\\2627.91 Weight Measurement 2020-02-03 15:40:21 Built in Bedscale [...] Temperature 2020-02-03 13:59:33 37.1\\S\\98.8 Weight 2020-02-03 13:59:33 43681\\S\\2627.91 Weight Measurement 2020-02-03 13:59:33 Built in Bedscale [...] Temperature 2020-02-03 13:57:29 37.1\\S\\98.8 Weight 2020-02-03 13:57:29 90503\\S\\2627.91 Weight Measurement 2020-02-03 13:57:29 Built in Bedscale Method WEIGHT 2020-02-03 05:44:00 74.5 kg HEIGHT 2020-02-03 05:00:00 167.64 cm Respitory Rate 2014-07-22 20:45:00 [facility] Rate 2014-07-22 20:45:[address] [facility] Systolic (mm Hg) 2014-07-22 20:45:00 Jack rialawson [facility] Diastolic (mm Hg) 2014-07-22 20:45:00 Mem orial [facility] Height 2014-07-22 17:53:00 167.64 cm [facility] Weight 2014-07-22 17:53:[address] [facility] BMI Calculated 2014-07-22 17:53:00 Memori al [facility] Respitory Rate 2014-07-22 17:53:00 [facility] Temperature Oral (F) 2014-07-22 17:53:00 97.9 F [facility] Heart Rate 2014-07-22 17:53:00 Abel [place] Systolic (mm Hg) 2014-07-22 17:53:00 Jack Kahnann Diastolic (mm Hg) 2014-07-22 17:53:00 Junior mcneal [place] Procedures Procedure Date / Time Performing Clinician Source Performed COMP. METABOLIC PANEL 2022-07-11 10:41:00 Ángel Murray [facility] ([id number]) Medical Branch CBC WITH DIFF 2022-07-11 10:41:00 Ángel Murray [facility] POCT GLUCOSE (AUTOMATED) 2022-07-11 09:26:00 Doctor Unaigned, [facility] CONSENT/REFUSAL FOR 2022-07-11 04:57:15 Doctor Unaigned, [facility] DIAGNOSIS AND TREATMENT [facility] CONSENT/REFUSAL FOR 2022-07-08 18:20:06 Doctor Unassigned, [facility] DIAGNOSIS AND TREATMENT [facility] URINALYSIS 2022-07-05 13:22:00 Hilda Perez [facility] XR TIBIA FIBULA 2 VW 2022-07-05 13:16:57 Hilda Perez [facility] COMP. METABOLIC PANEL 2022-07-05 12:59:00 Hilda Perez [facility] ([id number]) [facility] US LOWER EXTREMITY VEIN 2022-07-05 12:47:00 Hilda Perez [facility] WITH COMPRESSION [facility] Medical B ranch (ONLY FOR RULE OUT DVT) TROPONIN I 2022-07-05 11:49:00 Hilda Perez [facility] CBC WITH DIFF 2022-07-05 11:49:00 Hilda Perez [facility] N-TERMINAL PRO-BNP 2022-07-05 11:49:00 Hilda Perez [facility] US RENAL COMPLETE 2022-06-23 16:47:00 Laureen Moore [facility] CBC W/PLT COUNT & AUTO 2022-06-23 05:27:[address] [facility] DIFFERENTIAL Center CBC W/PLT COUNT & AUTO 2022-06-23 05:27:00 BrittneyLaureen renteria [facility] DIFFERENTIAL Center US ABDOMEN LIMITED 2022-06-22 16:17:00 [facility]OL[facility]EL 2022-06-22 03:48:00 [facility] MAG[facility]UM 2022-06-22 03:48:00 Fabienne [facility] HEPATIC FUNCTION PANEL 2022-06-22 03:48:00 [facility] CBC W/PLT COUNT & AUTO 2022-06-22 03:48:00 Fabienne [facility] PROTEIN ELECTROPHORESIS, 2022-06-22 03:48:00 Fabienne [facility] IRON, TIBC, % SAT. 2022-06-22 03:48:00 [facility] [place] VITAMIN B12 2022-06-22 03:48:00 Fabienne [facility] FERRITIN 2022-06-22 03:48:00 Fabienne [facility] HEPARIN ANTIBODY 2022-06-22 03:48:00 Fabienne [facility] LACTATE DEHYDROGENASE 2022-06-22 03:48:00 [facility] HAPTOGLOBIN 2022-06-22 03:48:00 Nini [facility] RETICULOCYTE COUNT 2022-06-22 03:48:00 Nini [facility] SERUM IMMUNOTYPING 2022-06-22 03:48:[address] [facility] SEROTONIN RELEASE ASSAY 2022-06-22 03:48:00 Fabienne [facility] CBC W/PLT COUNT & AUTO 2022-06-22 03:48:00 Fabienne [facility] URINE PROTEIN 2022-06-21 16:38:00 Kandice AbrahamKianna [facility] ELECTROPHORESIS, RANDOM Center SARS-COV2/RT-PCR ([facility] & 2022-06-21 11:14:00 Jorge AbrahamDahiana [facility] REF LABS) Center COMPREHENSIVE METABOLIC 2022-06-21 11:12:00 Diya Abrahamg [facility] PANEL Center PROTHROMBIN TIME/INR 2022-06-21 11:12:00 Diya Abrahamg [facility] CBC W/PLT COUNT & AUTO 2022-06-21 11:12:00 Jorge AbrahamDahiana [facility] DIFFERENTIAL Center CBC W/PLT COUNT & AUTO 2022-06-21 11:12:00 Fabienne Olga [facility] DIFFERENTIAL Center INSURANCE CORRESPONDENCE 2022-06-21 05:01:00 Doctor Unassigned, [facility] PHOSPHORUS 2022-06-07 09:16:00 [facility] MAGNESIUM 2022-06-07 09:16:00 [facility] BASIC METABOLIC PANEL 2022-06-07 09:16:00 [facility] (NA, K, CL, CO2, GLUCOSE, [facility] BUN, CREATININE, [place]) PHOSPHORUS 2022-06-05 11:13:00 [facility] [place] MAGNESIUM 2022-06-05 11:13:00 [facility] [place] BASIC METABOLIC PANEL 2022-06-05 11:13:00 [facility] (NA, K, CL, CO2, GLUCOSE, [facility] BUN, CREATININE, CA) [place] CBC WITH DIFF 2022-06-05 11:13:00 [facility] [place] PHOSPHORUS 2022-06-05 11:13:00 [facility] [place] MAGNESIUM 2022-06-05 11:13:[address] [facility] [place] BASIC METABOLIC PANEL 2022-06-05 11:13:00 Alo denny [facility] (NA, K, CL, CO2, GLUCOSE, Rod, Juanpablo Medica Branch BUN, CREATININE, CA) [place] CBC WITH DIFF 2022-06-05 11:13:[address] [facility] [place] Antonio CT THORAX W CONTRAST 2022-06-05 01:36:13 [facility] Shimon [facility] CT THORAX W CONTRAST 2022-06-05 01:36:13 [facility] Shimon [facility] ACTIVATED PARTIAL 2022-06-04 18:00:[address] [facility] ACTIVATED PARTIAL 2022-06-04 18:00:[address] [facility] ACTIVATED PARTIAL 2022-06-04 14:21:00 Christ [facility] ACTIVATED PARTIAL 2022-06-04 14:21:00 Christ [facility] XR KUB 2022-06-04 09:32:00 [facility]-06-04 09:32:00 Armando Pandey [facility] XR KUB 2022-06-04 06:45:00 [facility] 2022-06-04 06:45:00 [facility] HIT - AB 2022-06-04 06:14:00 Armando Pandey [facility] EXTRA SST HOLD FOR ARUP 2022-06-04 06:14:00 Armando Pandey [facility] HIT - AB 2022-06-04 06:14:00 Armando Pandey [facility] EXTRA SST HOLD FOR ARUP 2022-06-04 06:14:00 Armando Pandey [facility] XR CHEST 1 VW 2022-06-04 05:23:00 Armando Pandey [facility] XR CHEST 1 VW 2022-06-04 05:23:00 Armando Pandey [facility] TROPONIN I 2022-06-04 04:51:00 Armando Pandey [facility] HEPATIC FUNCTION PANEL 2022-06-04 04:51:00 Armando Pandey [facility] ([id number]) (ALB,T.PRO,BILI Medical Branch T,BU/BC,ALT,AST,ALK PHOS) BASIC METABOLIC PANEL 2022-06-04 04:51:00 Armando Pandey [facility] (NA, K, CL, CO2, GLUCOSE, Medica l Branch BUN, CREATININE, CA) CBC WITH DIFF 2022-06-04 04:51:00 Armando Pandey [facility] ACTIVATED PARTIAL 2022-06-04 04:51:00 Andreea [facility] TROPONIN I 2022-06-04 04:51:00 Armando Pandey [facility] HEPATIC FUNCTION PANEL 2022-06-04 04:51:00 Armando Pandey [facility] ([id number]) (ALB,T.PRO,BILI Medical Branch T,BU/BC,ALT,AST,ALK PHOS) BASIC METABOLIC PANEL 2022-06-04 04:51:00 Armando Pandey [facility] (NA, K, CL, CO2, GLUCOSE, Medica l Branch BUN, CREATININE, CA) CBC WITH DIFF 2022-06-04 04:51:00 Armando Pandey [facility] ACTIVATED PARTIAL 2022-06-04 04:51:00 Andreea [facility] HB ECG ROUTINE & RHYTHM 2022-06-04 04:43:15 Armando Pandey [facility] HB ECG ROUTINE & RHYTHM 2022-06-04 04:43:15 Armando Pandey [facility] ACTIVATED PARTIAL 2022-06-03 20:52:00 Ryley Polo [facility] ACTIVATED PARTIAL 2022-06-03 20:52:00 Ryley Polo [facility] THRAIDEN SYLVESTER [facility] FL TIME OR 2022-06-03 17:21:00 Alo [facility] (NON-REPORTABLE) Juanpablo Velasco [facility] Jose Antonio FL TIME OR 2022-06-03 17:21:00 Alo [facility] (NON-REPORTABLE) Juanpablo Velasco [facility] [place] ABG+COOX+NA+K+GLU+CA2+ 2022-06-03 16:52:00 Allan Lynch [facility] ABG+COOX+NA+K+GLU+CA2+ 2022-06-03 16:52:00 Allan Lynch [facility] SURGICAL PATHOLOGY EXAM 2022-06-03 15:42:00 Lawrence Peterson [facility] ABG+COOX+NA+K+GLU+CA2+ 2022-06-03 15:36:00 Allan Lynch [facility] ABG+COOX+NA+K+GLU+CA2+ 2022-06-03 15:36:00 Allan Lynch [facility] HB ABO GROUPING 2022-06-03 13:05:00 Vishnu Zapien [facility] HB ABO GROUPING 2022-06-03 13:05:00 Vishnu Zapien [facility] INFERIOR VENA CAVA FILTER 2022-06-03 12:00:00 [facility] VENOUS THROMBECTOMY 2022-06-03 12:00:00 Lawrence Peterson [facility] ANGIOPLASTY 2022-06-03 12:00:00 Lawrence Peterson [facility] VASCULAR STENTING 2022-06-03 12:00:00 Lawrence Peterson [facility] INFERIOR VENA CAVA FILTER 2022-06-03 12:00:00 Lawrence Peterson [facility] VENOUS THROMBECTOMY 2022-06-03 12:00:00 Lawrence Peterson [facility] ANGIOPLASTY 2022-06-03 12:00:00 Lawrence Pteerson [facility] VASCULAR STENTING 2022-06-03 12:00:00 Lawrence Peterson [facility] PHOSPHORUS 2022-06-03 10:34:[address] [facility] [place] MAGNESIUM 2022-06-03 10:34:[address] [facility] [place] BASIC METABOLIC PANEL 2022-06-03 10:34:00 Prajapati [facility] (NA, K, CL, CO2, GLUCOSE, Rod, Juanpablo Medica l Branch BUN, CREATININE, CA) [place] CBC WITH DIFF 2022-06-03 10:34:00 [facility] [place] ACTIVATED PARTIAL 2022-06-03 10:34:00 Andreea [facility] PHOSPHORUS 2022-06-03 10:34:00 [facility] [place] MAGNESIUM 2022-06-03 10:34:00 [facility] [place] BASIC METABOLIC PANEL 2022-06-03 10:34:00 Prajapati [facility] (NA, K, CL, CO2, GLUCOSE, Rod, Juanpablo Medica l Branch BUN, CREATININE, CA) [place] CBC WITH DIFF 2022-06-03 10:34:00 [facility] [place] ACTIVATED PARTIAL 2022-06-03 10:34:00 [facility] 2022-06-02 22:26:00 Ryley Polo [facility] ACTIVATED PARTIAL 2022-06-02 22:26:00 Christ [facility] ACTIVATED PARTIAL 2022-06-02 15:46:00 Andreea [facility] ACTIVATED PARTIAL 2022-06-02 15:46:00 Andreea [facility] PHOSPHORUS 2022-06-02 10:27:[address] [facility] [place] MAGNESIUM 2022-06-02 10:27:[address] [facility] [place] BASIC METABOLIC PANEL 2022-06-02 10:27:00 Prajapati [facility] (NA, K, CL, CO2, GLUCOSE, Rod, Juanpablo Medica [facility] BUN, CREATININE, CA) [place] CBC WITH DIFF 2022-06-02 10:27:[address] [facility] [place] PHOSPHORUS 2022-06-02 10:27:[address] [facility] [place] MAGNESIUM 2022-06-02 10:27:[address] [facility] [place] BASIC METABOLIC PANEL 2022-06-02 10:27:00 Prajapati [facility] (NA, K, CL, CO2, GLUCOSE, Rod, [facility] BUN, CREATININE, CA) [place] CBC WITH DIFF 2022-06-02 10:27:00 [facility] [place] PHOSPHORUS 2022-06-01 10:05:[address] [facility] [place] MAGNESIUM 2022-06-01 10:05:[address] [facility] [place] BASIC METABOLIC PANEL 2022-06-01 10:05:00 Prajapati [facility] (NA, K, CL, CO2, GLUCOSE, Rod, Juanpablo Medica [facility] BUN, CREATININE, CA) [place] CBC WITH DIFF 2022-06-01 10:05:[address] [facility] [place] PHOSPHORUS 2022-06-01 10:05:00 [facility] [place] MAGNESIUM 2022-06-01 10:05:00 [facility] [place] BASIC METABOLIC PANEL 2022-06-01 10:05:00 [facility] (NA, K, CL, CO2, GLUCOSE, Rod, Juanpablo Medica l Branch BUN, CREATININE, CA) [place] CBC WITH DIFF 2022-06-01 10:05:00 [facility] [place] PHOSPHORUS 2022-05-31 11:01:00 [facility] [place] MAGNESIUM 2022-05-31 11:01:00 [facility] [place] BASIC METABOLIC PANEL 2022-05-31 11:01:00 [facility] (NA, K, CL, CO2, GLUCOSE, Rod, Juanpablo Medica [facility] BUN, CREATININE, CA) [place] CBC WITH DIFF 2022-05-31 11:01:00 [facility] [place] PROTHROMBIN TIME / INR 2022-05-31 11:01:00 Juanpablo Salmon [facility] ACTIVATED PARTIAL 2022-05-31 11:01:00 Juanpablo Salmon [facility] THRMPLAS NGA [facility] FIBRINOGEN 2022-05-31 11:01:00 Ryley Polo [facility] PHOSPHORUS 2022-05-31 11:01:[address] [facility] [place] MAGNESIUM 2022-05-31 11:01:[address] [facility] [place] BASIC METABOLIC PANEL 2022-05-31 11:01:00 [facility] (NA, K, CL, CO2, GLUCOSE, Rod, Juanpablo [facility]ica [facility] BUN, CREATININE, CA) [place] CBC WITH DIFF 2022-05-31 11:01:00 [facility] [place] PROTHROMBIN TIME / INR 2022-05-31 11:01:00 Maurice Gutierrez [facility] ACTIVATED PARTIAL 2022-05-31 11:01:00 Juanpablo Salmon [facility] FIBRINOGEN 2022-05-31 11:01:00 [facility] 2022-05-31 11:01:00 [facility] 2022-05-31 11:01:00 [facility] BASIC METABOLIC PANEL 2022-05-31 11:01:00 [facility] (NA, K, CL, CO2, GLUCOSE, Rod, [facility] Medica Branch BUN, CREATININE, CA) Jose Antonio CBC WITH DIFF 2022-05-31 11:01:00 [facility] PROTHROMBIN TIME / INR 2022-05-31 11:01:00 Juanpablo Salmon [facility] ACTIVATED PARTIAL 2022-05-31 11:01:00 Juanpablo Salmon [facility] FIBRINOGEN 2022-05-31 11:01:00 [facility] FL TIME OR 2022-05-31 04:56:00 [facility] (NON-REPORTABLE) Medical Branch FL TIME OR 2022-05-31 04:56:00 [facility] (NON-REPORTABLE) Medical Branch FL TIME OR 2022-05-31 04:56:00 [facility] (NON-REPORTABLE) Medical Branch FIBRINOGEN 2022-05-31 01:26:00 [facility] FIBRINOGEN 2022-05-31 01:26:00 [facility] FIBRINOGEN 2022-05-31 01:26:00 [facility] VENOGRAM 2022-05-31 01:17:00 Cris, [facility] VENOGRAM 2022-05-31 01:17:00 Cris [facility] FIBRINOGEN 2022-05-30 21:47:00 Tssheila [facility] FIBRINOGEN 2022-05-30 21:47:00 Tsanagovitaliy [facility] FIBRINOGEN 2022-05-30 21:47:00 Tsanagovitaliy [facility] FIBRINOGEN 2022-05-30 18:14:00 Tsanagovitaliy [facility] FIBRINOGEN 2022-05-30 18:14:00 Tsanagoshsuma [facility] FIBRINOGEN 2022-05-30 18:14:00 Tsanagovitaliy [facility] FIBRINOGEN 2022-05-30 18:14:00 Tsukagovitaliy [facility] FIBRINOGEN 2022-05-30 15:21:00 Tsanagovitaliy [facility] FIBRINOGEN 2022-05-30 15:21:00 Tsanagovitaliy [facility] FIBRINOGEN 2022-05-30 15:21:00 Tsukagovitaliy [facility] FIBRINOGEN 2022-05-30 15:21:00 Tsanagovitaliy [facility] FIBRINOGEN 2022-05-30 13:12:00 Tsukagovanesai [facility] FIBRINOGEN 2022-05-30 13:12:00 Tsukagoshi [facility] FIBRINOGEN 2022-05-30 13:12:00 Tsanagoshi [facility] FIBRINOGEN 2022-05-30 13:12:00 Tsanagoshsuma [facility] FIBRINOGEN 2022-05-30 11:13:00 Tsanagovitaliy [facility] FIBRINOGEN 2022-05-30 11:13:00 Tsanagovitaliy [facility] FIBRINOGEN 2022-05-30 11:13:00 [facility] FIBRINOGEN 2022-05-30 11:13:00 [facility] PHOSPHORUS 2022-05-30 09:27:00 [facility] MAGNESIUM 2022-05-30 09:27:00 [facility] BASIC METABOLIC PANEL 2022-05-30 09:27:00 Christ [facility] (NA, K, CL, CO2, GLUCOSE, Medica l Branch BUN, CREATININE, CA) CBC WITH DIFF 2022-05-30 09:27:00 [facility] ACTIVATED PARTIAL 2022-05-30 09:27:00 Christ [facility] FIBRINOGEN 2022-05-30 09:27:00 [facility] PHOSPHORUS 2022-05-30 09:27:00 [facility] MAGNESIUM 2022-05-30 09:27:00 [facility] BASIC METABOLIC PANEL 2022-05-30 09:27:00 [facility] ([facility], K, CL, CO2, GLUCOSE, Medica l Branch BUN, CREATININE, CA) CBC WITH DIFF 2022-05-30 09:27:00 [facility] ACTIVATED PARTIAL 2022-05-30 09:27:00 Christ [facility] FIBRINOGEN 2022-05-30 09:27:00 [facility] PHOSPHORUS 2022-05-30 09:27:00 [facility] MAGNESIUM 2022-05-30 09:27:00 [facility] BASIC METABOLIC PANEL 2022-05-30 09:27:00 Christ [facility] (NA, K, CL, CO2, GLUCOSE, Medica l Branch BUN, CREATININE, CA) CBC WITH DIFF 2022-05-30 09:27:00 [facility] ACTIVATED PARTIAL 2022-05-30 09:27:00 [facility] 2022-05-30 09:27:00 [facility] PHOSPHORUS 2022-05-30 09:27:00 [facility] MAGNESIUM 2022-05-30 09:27:00 [facility] BASIC METABOLIC PANEL 2022-05-30 09:27:00 Ryley Polo [facility] (NA, K, CL, CO2, GLUCOSE, Medica l Branch BUN, CREATININE, CA) CBC WITH DIFF 2022-05-30 09:27:00 [facility] ACTIVATED PARTIAL 2022-05-30 09:27:00 Christ [facility] FIBRINOGEN 2022-05-30 09:27:00 [facility] FIBRINOGEN 2022-05-30 06:58:00 [facility] FIBRINOGEN 2022-05-30 06:58:00 [facility] FIBRINOGEN 2022-05-30 06:58:00 [facility] FIBRINOGEN 2022-05-30 06:58:00 [facility] ACTIVATED PARTIAL 2022-05-30 06:13:00 Christ [facility] ACTIVATED PARTIAL 2022-05-30 06:13:00 Christ [facility] ACTIVATED PARTIAL 2022-05-30 06:13:00 Christ [facility] ACTIVATED PARTIAL 2022-05-30 06:13:00 [facility] 2022-05-30 04:43:00 Cris [facility] FIBRINOGEN 2022-05-30 04:43:00 Cris [facility] FIBRINOGEN 2022-05-30 04:43:00 Cris [facility] FIBRINOGEN 2022-05-30 04:43:00 Cris [facility] FIBRINOGEN 2022-05-29 23:24:00 [facility] FIBRINOGEN 2022-05-29 23:24:00 [facility] FIBRINOGEN 2022-05-29 23:24:00 [facility] FIBRINOGEN 2022-05-29 23:24:00 [facility] FIBRINOGEN 2022-05-29 21:10:00 Cris [facility] FIBRINOGEN 2022-05-29 21:10:00 Cris [facility] FIBRINOGEN 2022-05-29 21:10:00 Cris [facility] FIBRINOGEN 2022-05-29 21:10:00 Cris [facility] BASIC METABOLIC PANEL 2022-05-29 14:55:00 Armando Pandey [facility] sity [facility] (NA, K, CL, CO2, GLUCOSE, Medica l Branch BUN, CREATININE, CA) CBC WITH DIFF 2022-05-29 14:55:00 [facility] 2022-05-29 14:55:00 Cris [facility] BASIC METABOLIC PANEL 2022-05-29 14:55:00 Dannie Armando [facility] sity [facility] (NA, K, CL, CO2, GLUCOSE, Medica l Branch BUN, CREATININE, CA) CBC WITH DIFF 2022-05-29 14:55:00 [facility] 2022-05-29 14:55:00 Cris [facility] BASIC METABOLIC PANEL 2022-05-29 14:55:00 Armando Pandey [facility] (NA, K, CL, CO2, GLUCOSE, Medica l Branch BUN, CREATININE, CA) CBC WITH DIFF 2022-05-29 14:55:00 Armando Pandey [facility] FIBRINOGEN 2022-05-29 14:55:00 Cris [facility] BASIC METABOLIC PANEL 2022-05-29 14:55:00 Dannie Armando [facility] (NA, K, CL, CO2, GLUCOSE, Medica l Branch BUN, CREATININE, CA) CBC WITH DIFF 2022-05-29 14:55:00 Armando Pandey [facility] FIBRINOGEN 2022-05-29 14:55:00 Cris [facility] FL TIME OR 2022-05-29 14:03:00 Haley [facility] (NON-REPORTABLE) [facility] [place] TIME OR 2022-05-29 14:03:00 Haley [facility] (NON-REPORTABLE) [facility] FL TIME OR 2022-05-29 14:03:00 Haley [facility] (NON-REPORTABLE) [facility] FL TIME OR 2022-05-29 14:03:00 [facility] ([facility] VENOUS THROMBOLYSIS 2022-05-29 12:05:00 Cris [facility] VENOUS THROMBOLYSIS 2022-05-29 12:05:00 Allan Lynch [facility] MAGNESIUM 2022-05-29 11:11:00 [facility]OLIC PANEL 2022-05-29 11:11:00 Amber Orellana [facility] (NA, K, CL, CO2, GLUCOSE, Medica l Branch BUN, CREATININE, CA) CBC WITHOUT DIFF 2022-05-29 11:11:00 Reyna [facility] ACTIVATED PARTIAL 2022-05-29 11:11:00 [facility] N[facility] MAGNESIUM 2022-05-29 11:11:00 Reyna [facility] BASIC METABOLIC PANEL 2022-05-29 11:11:00 [facility] (NA, K, CL, CO2, GLUCOSE, Medica l Branch BUN, CREATININE, CA) CBC WITHOUT DIFF 2022-05-29 11:11:00 [facility] PART[facility] 2022-05-29 11:11:00 [facility] 2022-05-29 11:11:00 Reyna [facility] BASIC METABOLIC PANEL 2022-05-29 11:11:00 [facility] (NA, K, CL, CO2, GLUCOSE, Medica l Branch BUN, CREATININE, CA) CBC WITHOUT DIFF 2022-05-29 11:11:00 [facility]IV[facility] PARTIAL 2022-05-29 11:11:00 [facility]UM 2022-05-29 11:11:00 Reyna [facility] BASIC METABOLIC PANEL 2022-05-29 11:11:00 [facility] (NA, K, CL, CO2, GLUCOSE, Medica l Branch BUN, CREATININE, CA) CBC WITHOUT DIFF 2022-05-29 11:11:00 Reyna [facility] ACTIVATED PARTIAL 2022-05-29 11:11:00 [facility] CONFIRMATION (LAB 2022-05-28 23:34:00 [facility] ONLY) Medical Branch ABORH CONFIRMATION (LAB 2022-05-28 23:34:00 [facility] ONLY) Medical Branch ABORH CONFIRMATION (LAB 2022-05-28 23:34:00 [facility] ONLY) Medical Branch ABORH CONFIRMATION (LAB 2022-05-28 23:34:00 [facility] ONLY) Medical Branch HB ABO GROUPING 2022-05-28 23:00:00 Jorge L De Leon [facility] HB ABO GROUPING 2022-05-28 23:00:00 [facility] HB ABO GROUPING 2022-05-28 23:00:00 [facility] HB ABO GROUPING 2022-05-28 23:00:00 [facility] ACTIVATED PARTIAL 2022-05-28 22:59:00 [facility] 2022-05-28 22:59:00 [facility] 2022-05-28 22:59:00 [facility] 2022-05-28 22:59:00 Reyna [facility] PROTHROMBIN TIME / INR 2022-05-28 17:23:00 [facility] ACTIV[facility] PARTIAL 2022-05-28 17:23:00 [facility] / INR 2022-05-28 17:23:00 Amber Orellana [facility] ACTIVATED PARTIAL 2022-05-28 17:23:00 [facility] PROT[facility] TIME / INR 2022-05-28 17:23:00 [facility] ACTIVATED PARTIAL 2022-05-28 17:23:00 [facility] PR[facility] / INR 2022-05-28 17:23:00 Amber Orellana [facility] ACTIVATED PARTIAL 2022-05-28 17:23:00 [facility] BASIC METABOLIC PANEL 2022-05-28 09:09:00 Romario Friedman [facility] (NA, K, CL, CO2, GLUCOSE, Medica l Branch BUN, CREATININE, CA) CBC WITH DIFF 2022-05-28 09:09:00 Romario Friedman [facility] FACTOR 5 LEIDEN 2022-05-28 09:09:00 Winifred [facility] FACTOR 2 [id number] MUTATION 2022-05-28 09:09:00 Liseth Vitale [facility] F5 LEIDEN AND F2 [id number] 2022-05-28 09:09:00 Liseth Vitale [facility] BASIC METABOLIC PANEL 2022-05-28 09:09:00 Romario Friedman [facility] (NA, K, CL, CO2, GLUCOSE, Medica l Branch BUN, CREATININE, CA) CBC WITH DIFF 2022-05-28 09:09:00 Romario Friedman [facility] FACTOR 5 LEIDEN 2022-05-28 09:09:00 Winifred [facility] FACTOR 2 [id number] MUTATION 2022-05-28 09:09:00 Liseth Vitale [facility] F5 LEIDEN AND F2 [id number] 2022-05-28 09:09:00 Liseth Vitale [facility] BASIC METABOLIC PANEL 2022-05-28 09:09:00 Romario Friedman [facility] (NA, K, CL, CO2, GLUCOSE, Medica l Branch BUN, CREATININE, CA) CBC WITH DIFF 2022-05-28 09:09:00 Romario Friedman [facility] FACTOR 5 LEIDEN 2022-05-28 09:09:00 Winifred [facility] FACTOR 2 [id number] MUTATION 2022-05-28 09:09:00 [facility] F5 LEIDEN AND F2 [id number] 2022-05-28 09:09:00 Liseth Vitale [facility] BASIC METABOLIC PANEL 2022-05-28 09:09:00 Romario Friedman [facility] (NA, K, CL, CO2, GLUCOSE, Medica l Branch BUN, CREATININE, CA) CBC WITH DIFF 2022-05-28 09:09:00 [facility] LE[facility]EN 2022-05-28 09:09:00 Winifred [facility] FACTOR 2 [id number] MUTATION 2022-05-28 09:09:00 [facility] F5 LEIDEN AND F2 [id number] 2022-05-28 09:09:00 Liseth Vit[facility] TRAN[facility] (TTE) 2022-05-27 15:47:00 [facility] TRANSTHORACIC ECHO (TTE) 2022-05-27 15:47:00 Romario Friedman niversFormerly [facility] COMPLETE W/ CONTRAST [facility] TRANSTHORACIC ECHO (TTE) 2022-05-27 15:47:00 [facility]/ [facility]AST [facility] TRANSTHORACIC ECHO (TTE) 2022-05-27 15:47:00 Romario Friedman [facility] COMPLETE W/ CONTRAST [facility] CT ABDOMEN PELVIS W 2022-05-27 11:28:06 [facility] ABDOMEN PELVIS W 2022-05-27 11:28:06 Edmago, [facility] CONTRAST Medical Branch CT ABDOMEN PELVIS W 2022-05-27 11:28:06 [facility] CT ABDOMEN PELVIS W 2022-05-27 11:28:06 [facility] BASIC METABOLIC PANEL 2022-05-27 09:45:00 [facility] (NA, K, CL, CO2, GLUCOSE, Medica l Branch BUN, CREATININE, CA) CBC WITH DIFF 2022-05-27 09:45:00 [facility] GLYCOSYL[facility] HEMOGLOBIN 2022-05-27 09:45:00 Winifred [facility] (A1C) Medical [place] BASIC METABOLIC PANEL 2022-05-27 09:45:00 [facility] (NA, K, CL, CO2, GLUCOSE, Medica l Branch BUN, CREATININE, CA) CBC WITH DIFF 2022-05-27 09:45:00 [facility] GLYCOSYLATED HEMOGLOBIN 2022-05-27 09:45:00 Winifred [facility] (A1C) Medical Branch BASIC METABOLIC PANEL 2022-05-27 09:45:00 [facility] (NA, K, CL, CO2, GLUCOSE, Medica l Branch BUN, CREATININE, CA) CBC WITH DIFF 2022-05-27 09:45:00 [facility] GLYCOSYLATED HEMOGLOBIN 2022-05-27 09:45:00 [facility] BASIC METABOLIC PANEL 2022-05-27 09:45:00 [facility] (NA, K, CL, CO2, GLUCOSE, Medica l Branch BUN, CREATININE, CA) CBC WITH DIFF 2022-05-27 09:45:00 [facility] GLYCOSYLATED HEMOGLOBIN 2022-05-27 09:45:00 Winifred [facility] (A1C) Medical Branch DUPLEX VENOUS LEGS 2022-05-27 01:08:52 Meche Zapata [facility] BILATERAL - BY VASCULAR Medical Branch LAB DUPLEX VENOUS LEGS 2022-05-27 01:08:52 Meche Zapata [facility] BILATERAL - BY VASCULAR Medical Branch LAB DUPLEX VENOUS LEGS 2022-05-27 01:08:52 Meche Zapata Mem[facility] BILATERAL - BY VASCULAR Medical Branch LAB DUPLEX VENOUS LEGS 2022-05-27 01:08:52 Meche Zapata Meme [facility] BILATERAL - BY VASCULAR Medical Branch LAB URINE DRUG (IMMUNOASSAY) 2022-05-26 22:13:00 [facility] 2022-05-26 22:13:00 Meche Zapata [facility] URINE DRUG (IMMUNOASSAY) 2022-05-26 22:13:00 [facility] S[facility]YSIS 2022-05-26 22:13:00 Meche Zapata [facility] URINE DRUG (IMMUNOASSAY) 2022-05-26 22:13:00 Ondina Yusuf [facility] SCREEN URINALYSIS 2022-05-26 22:13:00 Meche Zapata Meme [facility] URINE DRUG (IMMUNOASSAY) 2022-05-26 22:13:00 MadelinEmberkirit [facility] SCREEN URINALYSIS 2022-05-26 22:13:00 Meche Zapata [facility] HB ECG ROUTINE & RHYTHM 2022-05-26 21:43:55 Meche Zapata [facility] HB ECG ROUTINE & RHYTHM 2022-05-26 21:43:55 Meche Zapata Meme [facility] HB ECG ROUTINE & RHYTHM 2022-05-26 21:43:55 Meche Zapata [facility] HB ECG ROUTINE & RHYTHM 2022-05-26 21:43:55 Meche Zapata [facility] XR CHEST 1 2022-05-26 21:37:08 Meche Zapata [facility] XR CHEST 1 2022-05-26 21:37:08 Meche Zapata [facility] XR CHEST 1 2022-05-26 21:37:08 Meche Zapata [facility] XR CHEST 1 2022-05-26 21:37:08 Meche Zapata [facility] MAGNESIUM 2022-05-26 21:20:00 Meche Zapata [facility] TROPONIN I 2022-05-26 21:20:00 Meche Zapata [facility] COMP. METABOLIC PANEL 2022-05-26 21:20:00 Meche Zapata [facility] ([id number]) [facility] CBC WITH DIFF 2022-05-26 21:20:00 Meche Zapata [facility] N-TERMINAL PRO-BNP 2022-05-26 21:20:00 JodiMeche delarosa [facility] MAGNESIUM 2022-05-26 21:20:00 JodiMeche delarosa [facility] TROPONIN I 2022-05-26 21:20:00 JodiMeche delarosa [facility] COMP. METABOLIC PANEL 2022-05-26 21:20:00 Meche Zapata [facility] ([id number]) [facility] CBC WITH DIFF 2022-05-26 21:20:00 Jodi, K Meme [facility] N-TERMINAL PRO-BNP 2022-05-26 21:20:00 Meche Zapata [facility] MAGNESIUM 2022-05-26 21:20:00 JodiMeche delarosa [facility] TROPONIN I 2022-05-26 21:20:00 Meche Zapata [facility] COMP. METABOLIC PANEL 2022-05-26 21:20:00 Meche Zapata [facility] ([id number]) [facility] CBC WITH DIFF 2022-05-26 21:20:00 JodiMeche delarosa [facility] N-TERMINAL PRO-BNP 2022-05-26 21:20:00 Meche Zapata [facility] MAGNESIUM 2022-05-26 21:20:00 JodiMeche delarosa [facility] TROPONIN I 2022-05-26 21:20:00 Meche Zapata [facility] COMP. METABOLIC PANEL 2022-05-26 21:20:00 Meche Zapata [facility] ([id number]) [facility] CBC WITH DIFF 2022-05-26 21:20:00 Meche Zapata [facility] N-TERMINAL PRO-BNP 2022-05-26 21:20:00 Meche Zapata [facility] HOSPITAL ADMISSION 2022-05-26 05:01:00 Doctor Unassigned, [facility] HOSPITAL ADMISSION 2022-05-26 05:01:00 Doctor Unassigned, [facility] HOSPITAL ADMISSION 2022-05-26 05:01:00 Doctor Sergo, [facility] [place] [facility] XR LUMBAR SPINE 3 VW 2022-05-23 09:47:55 Carlos Corbin [facility] [place] DISCLOSURE AND CONSENT, 2022-05-19 05:01:00 Doctor Sergo, [facility] MEDICAL AND SURGICAL [place] [facility] PROCEDURES PATIENT QUESTIONNAIRE 2022-05-17 05:01:00 Doctor Sergo [facility] [place] [facility] INSURANCE CORRESPONDENCE 2022-05-16 05:01:00 Doctor Sergo, [facility] [place] [facility] INSURANCE CORRESPONDENCE 2022-05-04 05:01:00 Doctor Sergo, [facility] [place] [facility] [place] DME/SUPPLY JUSTIFICATION 2022-04-22 06:01:00 Doctor Sergo, [facility] [place] [facility] PATIENT FINANCIAL 2022-04-13 15:27:54 Doctor Sergo, [facility] POLICY [place] [facility] SLEEP STUDY DATA REPORT 2022-04-02 06:01:00 Doctor Sergo, [facility] [place] [facility] XR HIPS 2 VW RIGHT 2022-03-24 14:56:12 Susan Manjarrez [facility] Medical Branch MR LUMBAR SPINE WO 2022-03-24 14:41:33 Delroy Farah [facility] CONTRAST Medical Branch INSURANCE CORRESPONDENCE 2022-02-15 06:01:00 Doctor Sergo, [facility] [place] [facility] EXTERNAL PROVIDER RECORDS 2022-02-03 06:01:00 Doctor Sergo [facility] [place] [facility] REFERRAL- 2022-01-17 06:01:00 Doctor Sergo [facility] REQUEST/RESPONSE [place] [facility] ASSIGNMENT OF BENEFITS 2021-12-08 15:11:38 Doctor Sergo, [facility] [place] [facility] SLEEP STUDY DATA REPORT 2021-11-04 05:01:00 Doctor Sergo [facility] [place] [facility] Plan of Care Planned Activity Planned Date Details Comments Source Future Scheduled 2022-10-[address] [facility] Test 00:00:00 (Season Ended) [code = Medic al Center INFLUENZA VACCINE (Season Ended)] Future Scheduled 2022-10-[address] [facility] Test 00:00:00 (Season Ended) [code = Medic al Center INFLUENZA VACCINE (Season Ended)] Future Scheduled 2022-07-10 [facility]:57:37 [code = COVID-19 VACCINE (#1)] Future Scheduled 2022-07-10 [facility] 23:57:37 (procedure) [code = 218390981] Future Scheduled 2022-07-10 [facility] SCREENING [facility] 23:57:37 [code = COLONOSCOPY SCREENING] Future Scheduled 2022-07-10 SHINGLES VACCINES (1 [facility]:57:37 of 2) [code = SHINGLES VACCINES (1 of 2)] Future Scheduled 2022-07-10 [facility]ZA [facility]ACCINE [facility] 23:57:37 [code = INFLUENZA VACCINE] Future Scheduled 2022-07-10 COVID-19 VACCINE (#1) [facility] 23:57:37 [code = COVID-19 VACCINE (#1)] Future Scheduled 2022-07-10 [facility] 23:57:37 (procedure) [code = 501260134] Future Scheduled 2022-07-10 [facility]COPY SCREENING [facility]:24:31 (procedure) [code = 111476123] Future Scheduled 2022-07-03 [facility]OSCOPY SCREENING [facility] 20:48:55 (procedure) [code = [id number]] Future Scheduled 2022-05-18 [facility] 20:48:55 [code = COLONOSCOPY SCREENING] Future Scheduled 2022-05-18 SHINGLES VACCINES ([address] [facility] Test 20:48:55 of 2) [code = SHINGLES VACCINES (1 of 2)] Future Scheduled 2022-05-18 INFLUENZA VACCINE [facility] 20:48:55 [code = INFLUENZA VACCINE] Future Scheduled 2022-05-18 COVID-19 VACCINE (#1) [facility] 20:48:55 [code = COVID-19 VACCINE (#1)] Future Scheduled 2022-05-18 [facility] 20:48:55 (procedure) [code = 103213901] Future Scheduled 2022-05-18 [facility]CREENING [facility] 20:48:55 [code = COLONOSCOPY SCREENING] Future Scheduled 2022-05-18 SHINGLES VACCINES (1 [facility] 20:48:55 of 2) [...] Future Scheduled 2021-10-15 HEPATITIS B VACCINES [facility] Test 19:26:49 (1 of 3 - 3-dose series) [code = HEPATITIS B VACCINES (1 of 3 - 3-dose series)] Future Scheduled 2021-10-15 COVID-19 VACCINE (#1) Me [facility] Test 19:26:49 [code = COVID-19 VACCINE (#1)] Future Scheduled 2021-10-15 Hepatitis C screening [facility] Hospital Test 19:26:49 (procedure) [code = 009174537] Future Scheduled 2021-10-15 COLONOSCOPY SCREENING [facility] Hospital Test 19:26:49 [code = COLONOSCOPY SCREENING] Future Scheduled 2021-10-15 SHINGLES VACCINES ([address] [facility] Hospital Test 19:26:49 of 2) [code = SHINGLES VACCINES (1 of 2)] Future Scheduled 2021-10-15 INFLUENZA VACCINE Method [facility] Hospital Test 19:26:49 [code = INFLUENZA VACCINE] Future Scheduled 2021-10-12 HEPATITIS B VACCINES [facility] Hospital Test 17:47:43 (1 of 3 - 3-dose series) [code = HEPATITIS B VACCINES (1 of 3 - 3-dose series)] Future Scheduled 2021-10-12 COVID-19 VACCINE (#1) [facility] Hospital Test 17:47:43 [code = COVID-19 VACCINE (#1)] Future Scheduled 2021-10-12 Hepatitis C screening [facility] Hospital Test 17:47:43 (procedure) [code = 971765915] Future Scheduled 2021-10-12 COLONOSCOPY SCREENING [facility] Hospital Test 17:47:43 [code = COLONOSCOPY SCREENING] Future Scheduled 2021-10-12 SHINGLES VACCINES ([address] [facility] Hospital Test 17:47:43 of 2) [code = [...] Test 00:00:00 (procedure) [code = Medical Center 30877937] Future Scheduled [address] [facility] Test 00:[facility]:00 (procedure) [code = [facility] 66314219] Future Scheduled 1981 DTAP/TDAP/TD VACCINES [facility] I [...] Medica l Center colon (procedure) [code = 749403771] Future Scheduled [address] [facility] Test 00[facility]00 malignant neoplasm of [facility] colon (procedure) [code = 096768947] Future Scheduled [address] [facility] Test 00:[facility]:00 malignant ne[facility] colon (procedure) [code = 680461151] Future Scheduled [address] [facility] Test 00:00:00 malignant neoplasm of [facility] colon (procedure) [code = 906054258] Future Scheduled 1962 Sigmoidoscopy [facility]] Medical John r Future Scheduled [address] [facility] Test 00:00:00 (combo) [code = CT Medical C enter Colonography (combo)] Future Scheduled [address] [facility] Test 00:00:00 malignant neoplasm of [facility] Center colon (procedure) [code = 890562787] Future Scheduled [address] [facility] Test 00:00:00 malignant neoplasm of [facility] Center colon (procedure) [code = 302371534] Future Scheduled [address] [facility] Test 00:00:00 malignant neoplasm of [facility] colon (procedure) [code = 308828869] Future Scheduled [address] [facility] Test 00:00:00 malignant neoplasm of [facility] Center colon (procedure) [code = 306339838] Future Scheduled 1962 S[facility]oidoscopy [facility]oscopy] Medical John r Encounters Start End Encounter Admission Attending Care Care Encounter Source Date/Time Date/Time Type Type Clinicians Facility Department ID 2022-06-11 Outpatient 3 [id number] [place] [id number] [facility] 03:48:38 [facility] [place] 2022-06-10 Outpatient 3 [id number] [place] [id number] [facility] 02:10:29 0428 [facility] [place] 2022-06-09 Outpatient 3 [id number] [place] [id number] [facility] 10:37:19 0427 [facility] [place] 2022-06-01 Outpatient R IZABELA PHAM [facility] TIFFANY [id number] Univers 14:27:32 IZABELA PHAM [facility] 2022-06-01 Outpatient 3 [id number] ENC[facility] REF [id number] [facility] 12:13:29 0419 [facility] [place] 2020-12-14 Emergency [facility] [id number] Univers 03:38:20 ity of [facility] 2020-12-14 Emergency [facility] [id number] Univers 02:28:47 ity of [facility] 2020-12-14 Emergency [facility] [id number] Univers 02:03:46 ity of [facility] 2020-12-13 Emergency [facility] [id number] Univers 15:19:05 ity [facility] 2020-02-02 Inpatient [facility] [id number] [facility] 19:02:00 2020-02-02 Inpatient [facility] [id number] [facility] 19:02:00 2022-09-15 2022-09-15 Outpatient LAWRENCE HIGH [facility] 1 [id number] Univers 10:00:00 10:00:00 LAWRENCE PETERSON [facility] 2022-08-03 2022-08-03 Outpatient Zeke BECERRIL [facility] [id number] Univers 10:15:00 10:15:00 ROBINA [facility] 2022-07-12 2022-07-12 Inpatient ER ROMARIO [facility] Medical ICU [id number] [facility] 04:02:00 14:55:00 [place] 2022-07-11 2022-07-11 [facility] [id number] Univers 10:09:00 11:10:00 ANA hooks [facility] 2022-07-11 2022-07-11 Emergency [facility] E[facility] [id number] Univers 10:09:00 11:10:00 ANA [facility] 2022-07-11 2022-07-11 Emergency Jayes, [place] 1.2.931.597 [id number] Univers 10:09:00 11:10:00 Justen CENTER 350.1.13.10 [place] [id number] [address] 2022-07-11 2022-07-11 Emergency X NANCY [facility] ERT [id number] Univers 04:26:00 07:38:00 [facility]22-[facility]-11 2022-07-11 Emergency Trevor, Ángel Deidre TRAU[place] 1.2. 840.114 [id number] Univers 04:26:00 07:38:00 Ramana Cruz [facility] 350.1.13 .10 [place] [id number] [facility] [address] 2022-07-11 2022-07-11 Emergency [facility] 1.2.075.278 [id number] Univers 00:22:00 00:26:00 [place] 350.1.13.10 i ty of [place].2.7.[place] [id number] [facility] [address] 2022-07-08 2022-07-08 Emergency X [facility] ERT [id number] Univers 13:26:00 13:45:00 ity of [facility] 2022-07-08 2022-07-08 Emergency TRAUMA 1.2.997.025 [id number] Univers 13:26:00 13:45:00 [place] 350.1.13.10 [place] [id number] [address] 2022-07-05 2022-07-05 Outpatient Zeke BECERRIL [facility] [id number] Univers 14:30:00 14:30:00 ROBINA [facility] 2022-07-05 2022-07-05 [facility] [id number] Univers 14:30:00 14:30:00 ROBINA [facility] 2022-07-05 2022-07-05 Emergency [facility] ERT [id number] Univers 05:53:00 11:12:00 TRACEY [facility] 2022-07-05 2022-07-05 Emergency Hilda Perez [place] 1.2.840 .114 [id number] Univers 05:53:00 11:12:00 Tracey Trinidad [place] 350.1.13.10 [place] [id number] [facility] [address] 2022-07-04 2022-07-04 Emergency [facility] 1.2.353.098 [id number] Univers 14:13:00 14:19:00 [place] 350.1.13.10 i ty of [place].2.[place] [id number] [facility] [address] 2022-07-04 2022-07-04 [facility] [id number] Univers 14:00:00 14:00:00 [facility] 2022-07-04 2022-07-04 [facility] ERT [id number] Univers 14:00:00 14:00:00 [facility] 2022-07-04 2022-07-04 Telephone [facility] 1.2.840.114 [id number] Univers 00:00:00 00:00:00 [facility] 350.1.13.10 it y of [place] 4.2.7.2.686 Neal as JOEL?BLEA [id number] [address] OFFICE [facility] 2022-07-04 2022-07-04 Refill [facility] 1.2.840.114 [id number] Univers 00:00:00 00:00:00 [facility] 350.1.13.10 it y of [place] 4.2.7.2.686 Neal as JOEL?BLEA [id number] [address] MEDICAL OFFICE [facility] 2022-06-28 2022-06-28 Telephone [facility] 1.2.054.421 [id number] Univers 00:00:00 00:00:00 [facility] 350.1.13.10 i [place] [id number] [facility] [address] OFFICE BUILDING 2022-06-27 2022-06-27 Outpatient R VERO [facility] [id number] Univers 13:15:00 13:15:00 IZABELA PHAM [facility] 2022-06-21 2022-06-23 [facility] [id number] [facility] 08:54:00 18:00:00 Encounter Olga Abraham, [facility] 2022-06-21 2022-06-23 Inpatient ER RHETT MOORE Oncology [id number] [facility] 08:54:00 18:00:00 [facility] 2022-06-22 2022-06-22 Telephone [facility] 1.2.840.114 [id number] Univers 00:00:00 00:00:00 [facility] 350.1.13.10 it y of [place] 4.2.7.2.686 Neal as JOEL?BLEA [id number] [address] MEDICAL OFFICE BUILDING 2022-06-21 2022-06-21 Orders Doctor LAKESHIA 1.2.840.114 [id number] Univers 00:00:00 00:00:00 Only Unassigned, CHIRAG 350.1.13.10 ity of [place] [facility] 4.2.7.2.686 Neal as [id number] [address] 2022-06-17 2022-06-17 Telephone [facility] 1.2.840.114 [id number] Univers 00:00:00 00:00:00 [facility] 350.1.13.10 it y of Edziyad [place] 4.2.7.2.686 Neal as JOEL?BLEA [id number] [address] OFFICE BUILDING 2022-06-16 2022-06-16 Office Donna MONEDA 1.2.840.114 [id number] Univers 11:30:00 11:45:00 Visit [facility] 350.1.13.10 i [place] [id number] [address] OFFICE BUILDING 2022-06-16 2022-06-16 Outpatient R LAWRENCE PETERSON [facility] 1 [id number] Univers 11:30:00 11:30:00 LAWRENCE PETERSON ity of [facility] 2022-06-16 2022-06-16 Telephone oDnna [facility] 1.2.161.934 [id number] Univers 00:00:00 00:00:00 [facility] 350.1.13.10 i [place] [id number] [address] OFFICE BUILDING 2022-06-14 2022-06-14 Telephone Donna MONEDA 1.2.114.434 [id number] Univers 00:00:00 00:00:00 Lawrence [facility] 350.1.13.10 i ty of [place].2.[place] [id number] [address] OFFICE BUILDING 2022-06-08 2022-06-08 Telephone LAKESHIA Pham 1.2.042.755 [id number] Univers 00:00:00 00:00:00 Izabela BEARD 350.1.13.10 i ty of [facility] 4.2.7.2.686 Neal as [id number] [facility] [address] 2022-06-08 2022-06-08 Transition ANASTASIIA Calderon 1.2.840.114 10 [id number] Univers 00:00:00 00:00:00 of Care Elyssasuma BENNETT 350.1.13.10 i ty of [place] [id number] [facility] [address] 2022-05-26 2022-06-07 Inpatient U CRIS [facility] [id number] Univers 15:42:00 15:09:00 ALLAN hooks [facility] 2022-05-26 2022-06-07 Hospital Meche Zapata 1.2.840.1 14 [id number] Univers 15:42:00 15:09:00 Encounter Luis Huerta 350.1.13.10 ity of [facility] 4.2.7.2.686 Lance Swift [phone] Medical CrisAllan [address] 2022-06-07 2022-06-07 Outpatient Zeke PAREKH [facility] [id number] Univers 13:00:00 13:00:00 RENEE hooks [facility] 2022-06-03 2022-06-03 Surgery TYE Peterson 1.2.840.114 [id number] Univers 07:00:00 09:33:00 Lawrence BEARD 350.1.13.10 i ty of [facility] 4.2.7.2.686 Neal as [id number] [address] 2022-06-02 2022-06-02 Telephone Vero [facility] 1.2.931.985 [id number] Univers 00:00:00 00:00:00 Izabela SHAN 350.1.13.10 ity of [place] [id number] Wa dicletty DEEPA 188 [facility] 2022-06-01 2022-06-01 Telephone Jerrica [facility] 1.2.840.114 [id number] Univers 00:00:00 00:00:00 [facility] 350.1.13.10 it y of José Miguel [facility] 4.2.7.2.686 Neal as JOEL?BLEA [phone] [place] alpaletty JALENEY [address] MEDICAL OFFICE BUILDING 2022-05-30 2022-05-30 Surgery Cris TYE 1.2.840.114 [id number] Univers 20:00:00 22:46:00 Allan CHIRAG 350.1.13.10 it y of [facility] 4.2.7.2.686 Neal as [id number] [address] 2022-05-29 2022-05-29 Surgery Cris, TYE 1.2.840.114 [id number] Univers 07:20:00 10:33:00 Allan CHIRAG 350.1.13.10 it y of [facility] 4.2.7.2.686 Neal as [id number] [address] 2022-05-26 2022-05-26 Outpatient R JERRICA [facility] [id number] Univers 09:45:00 09:45:00 ROBINA [facility] 2022-05-24 2022-05-24 Outpatient R ROGER [facility] [id number] Univers 00:00:00 00:00:00 WOO [facility] 2022-05-24 2022-05-24 Prep [facility] 1.2.840.114 [id number] Univers 00:00:00 00:00:00 Surgery Izabela [facility] 350.1.13.10 ity of [facility] 4.2.7.2.686 [facility] s [facility] [phone] Wa dical NAL [address] [facility] 2022-05-23 2022-05-23 Emergency X IBIKUN, [facility] ERT [id number] Univers 16:40:00 18:12:00 FOLUSHO ity [facility] 2022-05-23 2022-05-23 Emergency X IBIKUN, [facility] ERT [id number] Univers 16:40:00 18:12:00 FOLUSHO ity [facility] 2022-05-23 2022-05-23 [facility] 1.2.840.114 10 [id number] Univers 16:40:00 18:12:00 [facility] 350.1.13.10 ity of [place] 4.2.7.2.686 [facility] [id number] [address] 2022-05-23 2022-05-23 Emergency [facility] 1.2.101.871 [id number] Univers 03:49:00 06:12:00 Carlos Fontaine [facility] 350.1.13.10 ity of [facility] 4.2.7.2.686 [facility] [id number] [address] 2022-05-23 2022-05-23 [facility] 1.2.840.114 [id number] Univers 00:00:00 00:00:00 [facility] 350.1.13.10 it y of José Miguel [facility] 4.2.7.2.686 Neal as JOEL?BLEA [phone] Wa edison JALENEY [address] MEDICAL OFFICE BUILDING 2022-05-19 2022-05-19 Outpatient R VERO [facility] [id number] Univers 09:30:00 10:37:40 IZABELA PHAM [facility] 2022-05-19 2022-05-19 Office [facility] 1.2.840.114 [id number] Univers 09:30:00 10:37:40 Visit Izabela TORREZ 350.1.13.10 ity of [place] [id number] Wa alpaletty ARENAS 188 [facility] 2022-05-19 2022-05-19 Orders Doctor LAKESHIA 1.2.840.114 [id number] Univers 00:00:00 00:00:00 Only Unassigned, CHIRAG 350.1.13.10 ity of [place] [facility] 4.2.7.2.686 Neal as [id number] [address] 2022-05-17 2022-05-17 Outpatient R ROGER [facility] [id number] Univers 08:00:00 08:57:35 WOO ity [facility] 2022-05-17 2022-05-17 Orders Doctor ASHER 1.2.840.114 [id number] Univers 00:00:00 00:00:00 Only Unassigned, CHIRAG 350.1.13.10 ity of [place] [facility] 4.2.7.2.686 Neal as [id number] [address] 2022-05-16 2022-05-16 Orders Doctor ASHER 1.2.840.114 [id number] Univers 00:00:00 00:00:00 Only Unassigned, CHIRAG 350.1.13.10 ity of [place] [facility] 4.2.7.2.686 Neal as [id number] [address] 2022-05-05 2022-05-05 Outpatient R JERRICA [facility] [id number] Univers 10:00:00 10:00:00 ROBINA hooks [facility] 2022-05-05 2022-05-05 Telephone [facility] 1.2.840.114 [id number] Univers 00:00:00 00:00:00 [facility] 350.1.13.10 it y of José Miguel TORREZ 4.2.7.2.686 Neal as JOEL?BLEA [phone] [place] JALENEY 044 [facility] 2022-05-04 2022-05-04 Orders Doctor LAKESHIA Pastrana2.840.114 [id number] Univers 00:00:00 00:00:00 Only Unassigned, CHIRAG 350.1.13.10 ity of [place] [facility] 4.2.7.2.686 Neal as [id number] [address] 2022-05-03 2022-05-03 Office [facility] 1.2.840.114 [id number] [facility] 09:45:00 10:15:00 Visit [facility] 350.1.13.10 it y of José Miguel [facility] 4.2.7.2.686 Neal as JOEL?BLEA [id number] [address] OFFICE [facility] 2022-05-03 2022-05-03 [facility] [id number] [facility] 09:45:00 09:45:00 ROBINA [facility] 2022-04-22 2022-04-22 Orders Doctor LAKESHIA 1.2.840.114 [id number] [facility] 00:00:00 00:00:00 Only Unassigned, CHIRAG 350.1.13.10 ity of [place] [facility] 4.2.7.2.686 Neal as [id number] [address] 2022-04-22 2022-04-22 Telephone [facility] 1.2.840.114 10 [id number] Univers 00:00:00 00:00:00 Strahil T [place] 350.1.13.10 ity of [facility] 4.2.7.2.[place] [phone] [address] 2022-04-13 2022-04-13 [facility] 1.2.351.184 [id number] Univers 09:30:00 10:00:00 Visit Strahil Jeronimo [place] 350.1.13.10 ity of [facility] 4.2.7.2.[place] [phone] [address] 2022-04-13 2022-04-13 Outpatient R DAWSON CHOUDHURY [facility] [id number] Univers 09:30:00 09:30:00 DAWSON CHOUDHURY [facility] 2022-04-13 2022-04-13 Orders Doctor LAKESHIA 1.2.840.114 [id number] Univers 00:00:00 00:00:00 Only Unassigned, CHIRAG 350.1.13.10 ity of [place] [facility] 4.2.7.2.686 Neal as [id number] [facility] [address] 2022-04-13 2022-04-13 Telephone [facility] 1.2.840.114 10 [id number] Univers 00:00:00 00:00:00 Dawson Decker MULTISPEC 350.1.13.10 ity of [place] [id number] [facility] AND MCKENZIE [address] [facility] 2022-04-07 2022-04-07 [facility] 1.2.840.114 [id number] Univers 10:30:00 11:02:20 Visit [facility] 350.1.13.10 it y of José Miguel [facility] 4.2.7.2.686 Neal as JOEL?BLEA [id number] [address] MEDICAL OFFICE BUILDING 2022-04-07 2022-04-07 Outpatient R JERRICA [facility] [id number] Univers 10:30:00 10:30:00 ROBINA ity [facility] 2022-04-06 2022-04-06 Telephone [facility] 1.2.840.114 [id number] Univers 00:00:00 00:00:00 [facility] 350.1.13.10 it y of Edziyad SHAN 4.2.7.2.686 Neal as JOEL?BLEA [phone] [address] MEDICAL OFFICE BUILDING 2022-04-02 2022-04-02 Dental Ceramist Assistant 1, [facility] Sleep Lab Bed [facility] 1. 2.840.114 [id number] Univers 20:00:00 22:30:00 Visit Dawson Choudhury 350.1.13. 10 ity of [place].2.[place] [id number] [facility] [address] 2022-04-02 2022-04-02 Outpatient R DAWSON CHOUDHURY [facility] [id number] Univers 20:00:00 20:00:00 DAWSON CHOUDHURY ity of [facility] 2022-04-02 2022-04-02 Orders Doctor LAKESHIA 1.2.840.114 [id number] Univers 00:00:00 00:00:00 Only Unassigned, CHIRAG 350.1.13.10 ity of [place] [facility] 4.2.7.2.686 Neal as [id number] [facility] [address] 2022-03-24 2022-03-24 [facility] 1.2.840.114 10 [id number] Univers 08:01:23 23:59:00 Encounter ANGLEDAVIDE 350.1.13.10 ity of [facility] 4.2.7.2.[place] [id number] [facility] [address] 2022-03-24 2022-03-[address] [facility] [id number] Univers 07:57:08 08:00:00 DELROY ity of [facility] 2022-03-24 2022-03-24 [facility] 1.2.840.114 [id number] Univers 07:57:08 08:00:00 Encounter Delroy TORREZ 350.1.13.10 ity of [facility] 4.2.7.2.686 [facility] [phone] [place] [address] [place] 2022-02-16 2022-02-16 [facility] 1.2.840.114 [id number] Univers 00:00:00 00:00:00 [facility] 350.1.13.10 it y of José Miguel [facility] 4.2.7.2.686 Neal as JOEL?BLEA [id number] [address] MEDICAL OFFICE BUILDING 2022-02-15 2022-02-15 Orders Doctor LAKESHIA 1.2.840.114 [id number] Univers 00:00:00 00:00:00 Only Unassigned, CHIRAG 350.1.13.10 ity of [place] [facility] 4.2.7.2.686 Neal as [id number] [facility] [address] 2022-02-03 2022-02-03 Orders Doctor LAKESHIA 1.2.840.114 [id number] Univers 00:00:00 00:00:00 Only Unassigned, CHIRAG 350.1.13.10 ity of [place] [facility] 4.2.7.2.686 Neal as [id number] [address] 2022-02-02 2022-02-02 Office [facility] 1.2.840.114 [id number] Univers 09:30:00 09:45:00 Visit [facility] 350.1.13.10 it y of [place] 4.2.7.2.686 Neal as JOEL?BLEA [id number] [address] OFFICE [facility] 2022-02-02 2022-02-02 Outpatient R [facility] [id number] Univers 09:30:00 09:40:22 [facility] 2022-01-17 2022-01-17 Orders Doctor ASHER 1.2.840.114 [id number] Univers 00:00:00 00:00:00 Only Unassigned, CHIRAG 350.1.13.10 ity of [place] [facility] 4.2.7.2.686 Neal as [id number] [address] 2022-01-03 2022-01-03 Office [facility] 1.2.840.114 [id number] [facility] 09:15:00 09:30:00 Visit [facility] 350.1.13.10 it y of [place] 4.2.7.2.686 Neal as JOEL?BLEA [phone] [address] OFFICE [facility] 2022-01-03 2022-01-03 Outpatient R [facility] [id number] Univers 09:15:00 09:15:00 [facility] 2021-12-08 2021-12-08 [facility] [id number] [facility] 10:20:00 10:40:00 Visit Lexislawson Jeronimo [place] [id number] ity of [facility] [id number] [place] [phone] [place] dical NAL 085 [facility] 2021-12-08 2021-12-08 Outpatient R BONIDAWSON PÉREZ [facility] [id number] Univers 10:20:00 10:20:00 DAWSON CHOUDHURY [employer] [facility] 2021-12-08 2021-12-08 Outpatient R DAWSON CHOUDHURY [facility] [id number] Univers 10:20: 10:20:00 DAWSON CHOUDHURY [facility] 2021-12-08 2021-12-08 Orders Doctor LAKESHIA [id number] [facility] 00:00:00 00:00:00 Only Unassigned, [place] [id number] [facility] [id number] Neal as [phone] [address] 2021-12-02 2021-12-02 Office Jerrica [facility] [id number] Univers 11:00:00 11:15:00 Visit [facility] [id number] it y of José Miguel TORREZ [id number] Neal as JOEL?BLEA [phone] [address] MEDICAL OFFICE [facility] 2021-12-02 2021-12-02 Outpatient R JERRICA [facility] [id number] Univers 11:00:00 11:00:00 ROBINA hooks [facility] 2021-11-25 2021-11-25 Outpatient R MACEYBINUSINGH [facility] [id number] Univers 20:00:00 20:00:00 BONISANGITAJALEELLEXISLawson [facility] [facility] 2021-11-22 2021-11-22 Outpatient R MACEYLEXISLawson [facility] [id number] Univers 10:15:00 10:15:00 BONISANGITAJALEELDAWSON itkirit [facility] 2021-11-04 2021-11-04 Dental Ceramist Assistant Agapito, [facility] Sleep Lab [facility] 1.2 .840.114 [id number] Univers 10:00:00 10:15:00 Visit Dawson Choudhury 350.1.13. 10 ity of [place] 4.2.7.2.686 [place] [facility] [phone] [facility] [address] 2021-11-04 2021-11-04 Outpatient R DAWSON CHOUDHURY [facility] [id number] Univers 10:00:00 10:00:00 BONISANGITADAWSON MARMOLEJO ity [facility] 2021-11-04 2021-11-04 Orders Doctor ASHER 1.2.840.114 [id number] Univers 00:00:00 00:00:00 Only Unassigned, CHIRAG 350.1.13.10 ity of [place] [facility] 4.2.7.2.686 Neal as [phone] [facility] [address] 2021-11-02 2021-11-02 Outpatient R JERRICA [facility] [id number] Univers 09:30:00 10:02:11 ROBINA [facility] 2021-11-02 2021-11-02 Office [facility] 1.2.840.114 [id number] Univers 09:30:00 09:45:00 Visit [facility] 350.1.13.10 it y of [place] 4.2.7.2.686 Neal as JOEL?BLEA [phone] [address] MEDICAL OFFICE BUILDING 2021-11-02 2021-11-02 Telephone [facility] 1.2.840.114 [id number] Univers 00:00:00 00:00:00 Strathe [facility] T MULTISPEC 350.1.13.10 ity of [place] 4.2.7.2.686 [place] [facility] [id number] [facility] AND JONAH [address] [place] [facility] 2021-10-07 2021-10-07 Telephone [facility] 1.2.840.114 [id number] Univers 00:00:00 00:00:00 [facility] 350.1.13.10 it y of [place] 4.2.7.2.686 Neal as JOEL?BLEA [phone] [address] MEDICAL OFFICE BUILDING 2021-10-05 2021-10-05 Outpatient R JERRICA [facility] [id number] Univers 14:15:00 14:43:53 ROBINA [facility] 2021-10-05 2021-10-05 [facility] 1.2.840.114 [id number] Univers 14:15:00 14:30:00 Visit [facility] 350.1.13.10 it y of José Miguel TORREZ 4.2.7.2.686 [place] as JOEL?BLEA [phone] [place] JALENEY [address] [place] MEDICAL OFFICE BUILDING 2021-10-05 2021-10-05 Outpatient R JERRICA [facility] [id number] Univers 14:15:00 14:15:00 ROBINA [facility] 2021-09-22 2021-09-22 [facility] 1.2.085.354 [id number] Univers 13:40:00 14:00:00 Visit Dawson RICEDAVIDE 350.1.13.10 ity of [place] 4.2.7.2.686 [place] [phone] [place] ARENAS 085 [facility] 2021-09-22 2021-09-22 Outpatient R BONIBETO [facility] [id number] Univers 13:40:00 13:40:[address] [facility] 2021-09-22 2021-09-22 Outpatient R BONIBETO [facility] [id number] Univers 13:40:00 13:40:00 [facility] 2021-09-21 2021-09-21 Letter LAKESHIA Morales 1.2.840.114 [id number] Univers 00:00:00 00:00:00 (Out) Erma Decker CHIRAG 350.1.13.10 it y of [facility] 4.2.7.2.686 Neal as [phone] [address] 2021-09-20 2021-09-20 Outpatient R JOEL [facility] [id number] Univers 15:00:00 15:33:41 MAGDALENE hooks o f [facility] 2021-09-20 2021-09-20 Urgent Magdalene Maldonado [facility] 1.2.840. 114 [id number] Univers 15:00:00 15:33:41 Care Joe Post [facility] 350.1.13.10 ity of [place] 4.2.7.2.686 Neal as JOEL?BLEA [phone] [facility] [address] MEDICAL OFFICE [facility] 2021-09-20 2021-09-20 Outpatient R JOEL [facility] [id number] Univers 15:00:00 15:33:41 MAGDALENE hooks o f [facility] 2021-09-15 2021-09-15 Outpatient R [facility] [id number] Univers 11:15:00 11:37:11 ROBINA [facility] 2021-09-15 2021-09-15 Office [facility] 1.2.840.114 [id number] Univers 11:15:00 11:30:00 Visit [facility] 350.1.13.10 it y of [place] [facility] 4.2.7.2.686 [place] as JOEL?BLEA [id number] [address] OFFICE [facility] 2021-09-15 2021-09-15 Outpatient R [facility] [id number] Univers 11:15:00 11:15:00 ROBINA [facility] 2021-06-30 2021-06-30 Orders Doctor LAKESHIA 1.2.840.114 [id number] Univers 00:00:00 00:00:00 Only Unassigned, CHIRAG 350.1.13.10 ity of [place] [facility] 4.2.7.2.686 Neal as [phone] [address] 2021-05-24 2021-05-24 Telephone [facility] 1.2.840.114 [id number] Univers 00:00:00 00:00:00 [facility] 350.1.13.10 it y of [place] 4.2.7.2.686 Neal as JOEL?BLEA [id number] [facility] 044 [facility] OFFICE [facility] 2021-05-11 2021-05-11 Outpatient R [facility] [id number] Univers 11:45:00 11:45:00 ROBINA kirit [facility] 2021-03-31 2021-04-02 Emergency X EMERALD [facility] ERT [id number] Univers 09:05:00 07:46:00 CARLOS hooks [facility] 2021-03-31 2021-04-02 Emergency Ladonna Bryant [facility] 1.2.8 40.114 [id number] Univers 09:05:00 07:46:00 Carlos CorbinDAVIDE 350.1.13.10 ity [facility] 4.2.7.2.686 [facility] [phone] [address] 2020-12-21 2020-12-21 Emergency X ROSETTA [facility] ERT [id number] Univers 12:12:00 16:04:00 MICHAEL itkirit [facility] 2020-12-21 2020-12-21 Emergency [facility] 1.2.647.591 [id number] Univers 12:12:00 16:04:00 Michael Fontaine SHAN 350.1.13.10 i ty of [place] 4.2.7.2.686 [facility] [id number] [address] 2020-12-10 2020-12-10 Outpatient Zeke BECERRIL [facility] [id number] Univers 09:00:00 09:00:00 ROBINA [facility] 2020-12-08 2020-12-08 Emergency [facility] 1.2.072.678 [id number] Univers 05:45:00 08:15:00 Teresarox Zhen Shan 350.1.13.10 ity [facility] 4.2.7.2.[address] [facility] [id number] [address] 2020-12-08 2020-12-08 Emergency X FRANCISCOJOANNALEA [facility] ERT [id number] Univers 05:45:00 08:15:00 CARLOS [facility] 2020-11-10 2020-11-10 Outpatient [facility] [id number] Univers 13:10:00 13:10:00 ity [facility] 2020-11-10 2020-11-10 Outpatient Zeke BECERRIL [facility] [id number] Univers 09:30:00 10:05:31 ROBINA ity of [facility] 2020-11-10 2020-11-10 Office Jerrica [facility] 1.2.840.114 [id number] [facility] 09:22:11 09:52:11 Visit Robina [facility] 350.1.13.10 it y of José Miguel Torrez 4.2.7.2.686 [place] as Joel?Blea [phone] [place] [address] Medical Office Building 2020-09-19 2020-09-19 Outpatient [facility] 456 997- [place] 03:24:00 03:24:00 E_MD_ 52067 Medica l Group 2020-09-04 2020-09-04 Orders Doctor ASHER 1.2.840.114 [id number] Univers 00:00:00 00:00:00 Only Unassigned, CHIRAG 350.1.13.10 ity of [place] [facility] 4.2.7.2.686 Neal as [phone] [address] 2020-08-22 2020-08-22 Outpatient [facility] 456 997- [place] 05:19:00 05:19:00 E_MD_ 39613 Medica l Group 2020-08-17 2020-08-17 Outpatient Zeke LOPEZ [facility] [id number] [facility] 09:00:00 09:00:00 WONDIFUL ity o f [facility] 2020-08-06 2020-08-07 Hospital Edgard Leo 1.2.840.1 14 [id number] Univers 13:41:00 23:00:00 Encounter Magali Curtis 350.1.13.10 ity of [facility] 4.2.7.2.686 Neal as [phone] [facility] [address] [place] 2020-08-03 2020-08-05 Emergency Ted Lion 1.2.840. 114 [id number] Univers 08:54:00 16:11:00 Allen Maravilla 350.1.13.10 ity of Georgina Duncan [facility] 4.2.7.2 .686 [place] [phone] [place] [id number] [place] 2020-07-31 2020-07-31 Emergency Manny, [facility] 1.2.840.114 [id number] Univers 08:39:00 14:39:00 Ladonna Torrez 350.1.13.10 ity of [place] 4.2.7.2.686 [facility] [id number] [facility] [address] 2020-07-25 2020-07-25 Outpatient [facility] 456 997- [place] 06:29:00 06:29:00 E_MD_ 22320 Medica l Group 2020-07-24 2020-07-24 Outpatient [facility] 456 997 [place] 11:00:00 11:00:00 E__ 92374 Medica l Group 2020-06-08 2020-06-08 Emergency Lion, [facility] 1.2.522.087 [id number] 6577 [facility] 13:48:00 17:01:00 Ted Torrez 350.1.13.10 i ty of [place] 4.2.7.[address] [place] [address] [phone] [facility] [address] 2020-01-28 2020-01-28 Outpatient JAM, [facility] [id number] [address] [place] [address] 00:00:00 00:00:00 [facility] 2020-01-20 2020-01-20 Outpatient EGBULEFU, [facility] [id number] [place] 11:36:00 16:26:30 [facility] 2019-10-29 2019-10-31 Inpatient [facility] [id number] [place] [address] 00:00:00 00:00:00 YASMINE 164 [place] 2019-03-12 2019-03-12 [facility] 1.2.840.114 [id number] Univers 14:43:00 23:59:00 Encounter [facility] 350.1.13.10 ity of 4.2.7.2.686 [facility] [phone] [facility] [address] 2019-03-11 2019-03-12 [facility] 1.2.840.114 [id number] [facility] 15:17:00 17:21:00 Encounter [facility] 350.1.13.10 it[place] [id number] [facility] [address] 2019-03-11 2019-03-12 Office Surgery, [facility] 1.2.8 40.114 [id number] Univers 09:09:17 08:54:29 [facility] 350.1.13.10 ity of [place] 4.2.7.2.686 [place] [id number] [facility] [address] 2018-10-31 2018-10-31 Office Surgery, [facility] 1.2. 840.114 [id number] Univers 08:41:29 09:11:29 Visit Nere[facility] 350.1.13.10 it[place] of [place]2.686 [place] [id number] [facility] [address] 2014-07-22 2014-07-22 [facility] [id number] [place] 17:51:00 21:57:00 Emergency r [address] 2014-07-22 2014-07-22 [facility] [id number] [place] 17:51:00 21:57:00 Emergency r [address] 2014-07-22 2014-07-22 Outpatient Griffin 2.16.840. 2.16.840.1 . [id number] 12:51:00 16:57:00 Christy [id number]. [id number] 00 Radhika 3.615.0.1 5.0.101 01 Results Test Description Test Time Test Comments Results Result [facility] e Comments RAD, CHEST, 1 2022-06-15 Post-intubationReason VIEW, NON DEPT 0 for 13:01:00 exam:->encephalopathy , r/o [facility] be performed at the CHARO KAYE bedside?->Yes : 1960 Sex: M FINAL REPORT CLINICAL HISTORY: encephalopathy, r/o aspiration TECHNIQUE: 1 view of the chest COMPARISON: None IMPRESSION: There are no focal infiltrates or pleural effusions. There is no significant cardiomegaly. The visualized bones are intact. Signed: Shimon Olmos MDReport Verified Date/Time: 07/12/2022 13:01:03 RIN ANTIBODY 2022-07-12 12:18:47 Test Item Value Reference Range Interpretation Comme nts HEPARIN ANTIBODY (BEAKER) (test Positive-See Serotonin Release Assa y Negative A code = 646) for Confirmation HEPARIN ANTIBODY OD (BEAKER) (test 3.000 <0.400 H code = 2659) 4T TOTAL SCORE (BEAKER) (test code 3 = 2661) BASIC METABOLIC [id number] 09:21:22 Test Item Value Reference Range Interpretation Comments SODIUM (BEAKER) 138 meq/L 136-145 (test code = 381) POTASSIUM 4.1 meq/L 3.5-5.1 (BEAKER) (test code = 379) CHLORIDE (BEAKER) 109 meq/L 98-107 H (test code = 382) CO2 (BEAKER) 20 meq/L 22-29 L (test code = 355) BLOOD UREA 13 mg/dL 7-21 NITROGEN (BEAKER) (test code = 354) CREATININE 0.82 mg/dL 0.57-1.25 (BEAKER) (test code = 358) GLUCOSE RANDOM 95 mg/dL 70-105 (BEAKER) (test code = 652) CALCIUM (BEAKER) 8.7 mg/dL 8.4-10.2 (test code = 697) EGFR (BEAKER) 102 Interpretatio n of eGFR (test code = mL/min/1.73 values Stage De scription 1092) sq m Result G1 Lukas l or high >=90 G2 Mildly decreased 60-89 G3a Mildl y to moderately 45-5 9 G3b Moderately to s everely 30-44 G4 Severl y decreased 15-29 G5 Kidney failure <15Reported eGF R is based on the CKD-EPI 202 equation that d oes not use a race coefficientEsti mated GFR is not as accur ate as Creatinine Carlyn luis in predicting glom erular filtration rate . Estimated GFR is not appl icable for dialysis patien ts Professor Of Management ID - [id number] 07:01:03 Test Item Value Reference Range Interpretation Comments PHOSPHORUS (BEAKER) (test code = 3.1 mg/dL 2.3-4.7 604) Professor Of Management ID - PABLITO WHEPATIC FUNCTION [id number] 07:01:02 Test Item Value Reference Range Interpretation Comments TOTAL PROTEIN (BEAKER) (test code = 6.5 gm/dL 6.0-8.3 770) ALBUMIN (BEAKER) (test code = 1145) 3.8 g/dL 3.5-5.0 BILIRUBIN TOTAL (BEAKER) (test code 0.4 mg/dL 0.2-1.2 = 377) BILIRUBIN DIRECT (BEAKER) (test 0.2 mg/dL 0.1-0.5 code = 706) ALKALINE PHOSPHATASE (BEAKER) (test 86 U/L 40-150 code = 346) AST (SGOT) (BEAKER) (test code = 19 U/L 5-34 353) ALT (SGPT) (BEAKER) (test code = 21 U/L 6-55 347) Professor Of Management ID - PABLITO [id number] 07:01:02 Test Item Value Reference Range Interpretation Comments MAGNESIUM (BEAKER) (test code = 2.5 mg/dL 1.6-2.6 627) Professor Of Management ID - PABLITO WB-TYPE NATRIURETIC FACTOR (BNP)2022-07-12 06:45:03 Test Item Value Reference Range Interpretation Comments B-TYPE NATRIURETIC PEPTIDE (BEAKER) 33 pg/mL 0-100 (test code = 700) Professor Of Management ID Marquis KENNEY [id number] 06:38:12 Test Item Value Reference Range Interpretation Comments D-DIMER QUANTITATIVE (BEAKER) 4.87 MG/L FEU <0.50 H (test code = 671) Intended Use: The D-Dimer Assay can be used to aid in the diagnosis of Deep Vein Thrombosis (DVT) and Pulmonary Embolism Disease (PED).In patients with low pre- test probability, various studies concerning STA Liatest D-dimer test have reported that with a cutoff value of 0.50 MG/L FEU, the Negative Predictive Value (NPV) regarding the exclusion of thrombosis is within 95-100% range. PROTHROMBIN [id number] 06:28:19 Test Item Value Reference Range Interpretation Comments PROTIME (BEAKER) (test code = 13.9 seconds 11.9-14.2 759) INR (BEAKER) (test code = 370) 1.09 <=5.90 RECOMMENDED COUMADIN/WARFARIN INR THERAPY RANGESSTANDARD DOSE: 2.0 - 3.0 Includes: PROPHYLAXIS for venous thrombosis, systemic embolization; TREATMENT for venous thrombosis and/or pulmonary embolus.HIGH RISK: Target INR is 2.5-3.5 for patients with mechanical heart valves.POCT-GLUCOSE [id number] 06:10:03 Test Item Value Reference Range Interpretation Comments POC-GLUCOSE METER 97 mg/dL 70-110 : TESTED A T [facility] 6720 (BEAKER) (test code = CHRISTAL Zeke [facility], 1538) 38258: Professor Of Management/Techni santosh ID = [id number] for Jackie Sousa COMP. METABOLIC PANEL ([id number])2022-07-11 11:58:27 Test Item Value Reference Range Interpretation Comments NA (test code = 138 mmol/L 135-145 6590838406) K (test code = 4.5 mmol/L 3.5-5.0 Slight hemoly sis 5348953345) CL (test code = 101 mmol/L 98-108 2801621321) CO2 TOTAL (test 23 mmol/L 23-31 code = 4382486802) AGAP (test code = 14 2-16 6133427663) BUN (test code = 14 mg/dL 7-23 Slight hemo lysis 3729960524) GLUCOSE (test code 94 mg/dL 70-110 = 2518302312) CREATININE (test 0.67 mg/dL 0.60-1.25 code = 5699392446) TOTAL BILI (test 0.6 mg/dL 0.1-1.1 code = 6504905614) CALCIUM (test code 9.0 mg/dL 8.6-10.6 = 4032089756) T PROTEIN (test 7.2 g/dL 6.3-8.2 code = 8045042630) ALBUMIN (test code 4.5 g/dL 3.5-5.0 = 0396693600) ALK PHOS (test 88 U/L 34-122 Slight hemoly sis code = 9098715194) ALTv (test code = 31 U/L 5-50 1742-6) AST(SGOT) (test 40 U/L 13-40 Slight hemol ysis code = 2242075800) eGFR (test code = 121.4 mL/min/1.73m2 9607244886) DEWAYNE (test code = Association of DEWAYNE) Glomerular Filtration Rate (GFR) and Staging of Kidney Disease* + ----+ ------+ +| GFR (mL/min/1.73 m2) ?| With Kidney Damage ?| ?Without Kidney Damage+ +--------- +------- +| ?>90 ?| ?Stage one ?| ? Normal ?+ -----+ -------+ +| ?60-89 ?| ?Stage two ?| ? Decreased GFR ? + ----+ ------+ +| ?30-59 ?| ?Stage three ?| ? Stage three ? + ----+ ------+ +| ?15-29 ?| ?Stage four ? | ? Stage four ?+ -----+ -------+ +| ?<15 (or dialysis) ? ?| ?Stage five ? | ? Stage five ?+ -----+ -------+ + *Each stage assumes the associated GFR [...] or urine or abnormalities in imaging tests). [facility] WITH [id number] 11:18:00 Test Item Value Reference Range Interpretation Comments WBC (test code = 7.15 See_Comment [Automated 6690-2) message] The sy stem which generated this result transmitted reference range : 4.20 - 10.70 10*3/?L. The reference range was not used to interpret this result as normal/abnormal . RBC (test code = 3.45 See_Comment L [Automated 789-8) message] The sy [...] (test code = 53.9 fL 38.5-51.6 H 23114-8) RDW-CV (test code = 17.2 % 12.1-15.4 H 788-0) PLT (test code = 400 See_Comment H [Automated 777-3) message] The sy stem which generated this result transmitted reference range : 150 - 328 10*3/ ?L. The reference r mitra was not used to interpret this result as normal/abnormal . MPV (test code = 8.8 fL 9.8-13.0 L 55742-7) NRBC/100 WBC (test 0.0 See_Comment [Automat ed code = 8079276453) message] The system which generated this result transmitted reference range : 0.0 - 10.0 /100 WBCs. The refer ence range was not u sed to interpret th is result as normal/abnormal . NRBC x10^3 (test code See_Comment [Auto mated = 3658278144) message] The s ystem which generated this result transmitted reference range : 10*3/?L. The reference range was not used to interpret this result as normal/abnormal . GRAN MAT (NEUT) % 71.5 % (test code = 770-8) IMM GRAN % (test code 0.40 % = 2146747151) LYMPH % (test code = 17.6 % 736-9) MONO % (test code = 7.4 % 5905-5) EOS % (test code = 1.8 % 713-8) BASO % (test code = 1.3 % 706-2) GRAN MAT x10^3(ANC) 5.11 10*3/uL 1.99-6.95 (test code = 5121420966) IMM GRAN x10^3 (test 0.03 10*3/uL 0.00-0.06 code = 9396523719) LYMPH x10^3 (test code 1.26 10*3/uL 1.09-3.23 = 731-0) MONO x10^3 (test code 0.53 10*3/uL 0.36-1.02 = 742-7) EOS x10^3 (test code = 0.13 10*3/uL 0.06-0.53 711-2) BASO x10^3 (test code 0.09 10*3/uL 0.01-0.09 = 704-7) Lab Interpretation Abnormal (test code = 43568-6) [facility])2022-07-11 09:27:00 Test Item Value Reference Range Interpretation Comments POCT GLU (test code = 8450986158) 95 mg/dL 70-110 Lab Interpretation (test code = Normal 02912-4) [facility] MET[facility]OLIC PANEL ([id number])2022-07-05 13:14:57 Test Item Value Reference Range Interpretation Comments NA (test code = 137 mmol/L 135-145 8717183648) K (test code = 4.2 mmol/L 3.5-5.0 9646208336) CL (test code = 100 mmol/L 98-108 8404561643) CO2 TOTAL (test code = 24 mmol/L 23-31 9292341917) AGAP (test code = 13 2-16 3456498254) BUN (test code = 11 mg/dL 7-23 9059566573) GLUCOSE (test code = 124 mg/dL 70-110 H 3630793735) CREATININE (test code = 0.81 mg/dL 0.60-1.25 3291967811) TOTAL BILI (test code = 0.6 mg/dL 0.1-1.7 1555670302) CALCIUM (test code = 9.1 mg/dL 8.6-10.6 0846340606) T PROTEIN (test code = 7.0 g/dL 6.3-8.2 9421068559) ALBUMIN (test code = 4.3 g/dL 3.5-5.0 5112994757) ALK PHOS (test code = 103 U/L 34-122 0138120999) ALTv (test code = 28 U/L 5-50 1742-6) AST(SGOT) (test code = 39 U/L 13-40 9560985071) eGFR (test code = 97.5 mL/min/1.73m2 2695574955) DEWAYNE (test code = DEWAYNE) Association of [...] tests). Lab Interpretation Abnormal (test code = 62105-2) [facility] [id number] 12:25:35 Test Item Value Reference Range Interpretation Comments NT-proBNP (test code = 523 pg/mL <=125 H 7067053529) DEWAYNE (test code = DEWAYNE) Biotin has been reported to cause a negative bias, interpret results relative to patient's use of biotin. Lab Interpretation (test Abnormal code = 11611-7) [facility] [id number] 12:25:35 Test Item Value Reference Range Interpretation Comments TROPONIN I (test code = 0.009 ng/mL <=0.034 6780802507) DEWAYNE (test code = DEWAYNE) Reference (Normal) [...] biotin. Lab Interpretation Normal (test code = 42543-5) [facility] WITH [id number] 12:01:31 Test Item Value Reference Range Interpretation Comments WBC (test code = 7.09 See_Comment [Automated 7190-2) message] The sy stem which generated this result transmitted reference range : 4.20 - 10.70 10*3/?L. The reference range was not used to interpret this result as normal/abnormal . RBC (test code = 3.08 See_Comment L [Automated 469-8) message] The sy [...] (test code = 52.8 fL 38.5-51.6 H 57221-1) RDW-CV (test code = 16.1 % 12.1-15.4 H 788-0) PLT (test code = 436 See_Comment H [Automated 777-3) message] The sy stem which generated this result transmitted reference range : 150 - 328 10*3/ ?L. The reference r mitra was not used to interpret this result as normal/abnormal . MPV (test code = 8.9 fL 9.8-13.0 L 24432-6) NRBC/100 WBC (test 0.3 See_Comment [Automat ed code = 3735607944) message] The system which generated this result transmitted reference range : 0.0 - 10.0 /100 WBCs. The refer ence range was not u sed to interpret th is result as normal/abnormal . NRBC x10^3 (test code 0.02 See_Comment [Auto mated = 0490916411) message] The s ystem which generated this result transmitted reference range : 10*3/?L. The reference range was not used to interpret this result as normal/abnormal . GRAN MAT (NEUT) % 69.0 % (test code = 770-8) IMM GRAN % (test code 0.40 % = 8004452085) LYMPH % (test code = 16.1 % 736-9) MONO % (test code = 12.7 % 5905-5) EOS % (test code = 0.8 % 713-8) BASO % (test code = 1.0 % 706-2) GRAN MAT x10^3(ANC) 4.89 10*3/uL 1.99-6.95 (test code = 4318031480) IMM GRAN x10^3 (test 0.03 10*3/uL 0.00-0.06 code = [id number]) LYMPH x10^3 (test code 1.14 10*3/uL 1.09-3.23 = 731-0) MONO x10^3 (test code 0.90 10*3/uL 0.36-1.02 = 742-7) EOS x10^3 (test code = 0.06 10*3/uL 0.06-0.53 711-2) BASO x10^3 (test code 0.07 10*3/uL 0.01-0.09 = 704-7) Lab Interpretation Abnormal (test code = 72964-9) [facility] [id number] 14:13:16 Test Item Value Reference Range Interpretation Comments SCAN RESULT (test code = 0221912) [facility] LOW DOSE 0.1 (2) See sca nned report. (BEAKER) (test code = 2593) See scanned reportU/S, RENAL, [id number] 17:23:00Reason for exam:->[facility]ph[facility] : 1960 Sex: MFINAL [...] 06/23/2022 17:23:41 CBC W/PLT COUNT & AUTO [id number] 05:58:22 Test Item Value Reference Range Interpretation [...] (BEAKER) (test code = 2801) U/S, ABDOMINAL, [id number] 16:48:00Abdomen limited area? Add comment if clarification is needed.->Right upper quadrantReason for exam:->elevated Tbili - please evaluate [facility] : 1960 Sex: MFINAL [...] Impression:Unremarkable right upper quadrant ultrasound. Signed: [facility] Verified Date/Time: 6:48:01 SERUM [id number] 16:04:04 Test Item Value Reference Range Interpretation Comments IMMUNOGLOBULIN A (IGA) 146 mg/dL 63-484 (BEAKER) (test code = 639) IMMUNOGLOBULIN G (IGG) 704 mg/dL 540-1822 (BEAKER) (test code = 427) IMMUNOGLOBULIN M (IGM) 72 mg/dL 22-293 (BEAKER) (test code = 638) SERUM IT ID [id number](BEAKER) No monoclonal (test code = 3817) protein detected. [facility]-PATHOLOGIST-"[id number] Kareenmyrnalaurie Lawler, " (BEAKER) (test code = M.D. 3809) Clinical Wafer Batter Mixer - SFOperator ID - ADMINPROTEIN ELECTROPHORESIS, SERUM WITH REFLEX TO [id number] 16:03:41 Test Item Value Reference Range Interpretation [...] (test code = increased. 2615) Non-specific change. [id number] [facility] Shineleliaari, (BEAKER) (test code = M.D. 2616) PROTEIN TOTAL SERUM, 6.6 gm/dL 6.0-8.3 SPEP (BEAKER) (test code = 2970) Clinical Wafer Batter Mixer - SFOperator ID - ADMINOperator ID - ADMHEPARIN ANTIBODY 2022-06-22 12:12:51 Test Item Value Reference Range Interpretation Comments HEPARIN ANTIBODY Positive-See Serotonin Negative A (BEAKER) (test code = Release Assay for 646) Confirmation HEPARIN ANTIBODY OD 3.000 <0.400 H (BEAKER) (test code = 2659) 4T TOTAL SCORE 5 (BEAKER) (test code = 2661) [id number] 05:50:16 Test Item Value Reference Range Interpretation Comments HAPTOGLOBIN (BEAKER) (test code = 308 mg/dL 14-258 H 366) Professor Of Management ID - ADMINOperator ID - ADMINVITAMIN [id number] 05:20:33 Test Item Value Reference Range Interpretation Comments VITAMIN B12 (BEAKER) (test code = 359 pg/mL 213-816 774) Professor Of Management ID - [id number] 05:20:33 Test Item Value Reference Range Interpretation Comments FERRITIN (BEAKER) (test code = 415.83 ng/mL 5.00-275.00 H 361) Professor Of Management ID - MARCOIRON, TIBC, % SAT. (WITHOUT FERRITIN)2022-06-22 04:59:45 Test Item Value Reference Range Interpretation Comments IRON (BEAKER) (test code = 547) 38.0 ug/dL 40.0-160.0 L TOTAL IRON BINDING CAPACITY 311 ug/dL 250-450 (BEAKER) (test code = 769) IRON % SATURATION (2) (BEAKER) 12 % 20-55 L (test code = 2590) Professor Of Management ID - MARCORETICULOCYTE [id number] 04:53:40 Test Item Value Reference Range Interpretation Comments RETICULOCYTE COUNT PCT (BEAKER) (test 5.7 % 0.5-1.8 H code = 575) Professor Of Management ID - [id number] W/PLT COUNT & AUTO [id number] 04:53:36 Test Item Value Reference Range Interpretation [...] (BEAKER) (test code = 2801) HEPATIC FUNCTION [id number] 04:48:30 Test Item Value Reference Range Interpretation [...] (test code = 19 U/L 6-55 347) Professor Of Management ID - ADMINLACTATE DEHYDROGENASE (LDH)2022-06-22 04:48:30 Test Item Value Reference Range Interpretation Comments LACTATE DEHYDROGENASE (BEAKER) (test 271 U/L 125-220 H code = 635) Professor Of Management ID - ADMINBASIC METABOLIC [id number] 04:48:29 Test Item Value Reference Range Interpretation [...] De scription 1092) sq m Result G1 Lukas l or high >=90 G2 Mildly decreased [...] not appl icable for dialysis patien ts Professor Of Management ID - [id number] 04:48:29 Test Item Value Reference Range Interpretation Comments MAGNESIUM (BEAKER) (test code = 2.2 mg/dL 1.6-2.6 627) Professor Of Management ID - ADMINCOMPREHENSIVE METABOLIC [id number] 13:27:13 Test Item Value Reference Range Interpretation [...] St age Description sq m Result G1 Lukas l or high >=90 G2 Mildly decreased 60-89 G3a Mildl y to moderately 45-5 9 G3b Moderately to s everely 30-44 G4 Severl y decreased 15-29 G5 Kidney failure <15Reported eGF R is based on the CKD-EPI 2021 equation that d oes not use a race coefficientEsti mated GFR is not as accur ate as Creatinine Carlyn smith in predicting glom erular filtration rate . Estimated GFR is not appl icable for dialysis patien ts Professor Of Management ID - JSCBC W/PLT COUNT & AUTO [id number] 13:14:04 Test Item Value Reference Range Interpretation [...] 417) IMMATURE GRANULOCYTES-RELATIVE 0.50 % 0.00-1.00 PERCENT (PIO) (test code = 2801) PROTHROMBIN TIME/[id number] 13:13:03 Test Item Value Reference Range Interpretation Comments PROTIME (PIO) (test code = 15.2 seconds 11.9-14.2 H 759) INR (PIO) (test code = 370) 1.28 <=5.90 RECOMMENDED COUMADIN/WARFARIN INR THERAPY RANGESSTANDARD DOSE: 2.0 - 3.0 Includes: PROPHYLAXIS for venous thrombosis, systemic embolization; TREATMENT for venous thrombosis and/or pulmonary embolus.HIGH RISK: Target INR is 2.5-3.5 for patients with mechanical heart valves.SARS-CoV2/RT-PCR ([facility]) 2022-06-21 13:03:14 Test Item Value Reference Interpretation Comments Range SARS-COV2/RT-PCR Negative Negative The SARS-Co V-2 (test code = target nucleic 38450-8) acids are not detected in thi s [...] revoked sooner. Fact Sheet for Healthcare Providers: https://www.[employer].com/Documents/Xp ert%20Xpress%20SAR S%20CoV-2/Fact%20S heets/302-3802%20S ARS-COV-2%20HEALTH CARE%20PROVIDERS%2 0FACT%20SHEET.pdf Fact Sheet for Healthcare Patients: https://www.[employer]/Documents/Xp ert%20Xpress%20SAR S%20CoV-2/Fact%20S heets/302-3801%20S ARS-COV-2%20PATIEN T%20FACT%20SHEET.p df Lab Interpretation Normal (test code = 57781-0) [facility]2022-06-21 13:03:14 Test Item Value Reference Interpretation Comments Range SARS-COV2/RT-PCR Negative Negative The SARS-Co V-2 (test code = target nucleic 92570-0) acids are not detected in thi s [...] revoked sooner. Fact Sheet for Healthcare Providers: https://www.[employer]/Documents/Xp ert%20Xpress%20SAR S%20CoV-2/Fact%20S heets/302-3802%20S ARS-COV-2%20HEALTH CARE%20PROVIDERS%2 0FACT%20SHEET.pdf Fact Sheet for Healthcare Patients: https://www.[employer]/Documents/Xp ert%20Xpress%20SAR S%20CoV-2/Fact%20S heets/302-3801%20S ARS-COV-2%20PATIEN T%20FACT%20SHEET.p df Lab Interpretation Normal (test code = 25891-2) [facility])2022-06-21 13:03:14 Test Item Value Reference Range Interpretation Comments SARS-COV2/RT-PCR Negative Negative The SARS-Co V-2 target (test code = nucleic acids a re not 5353944) detected in thi s specimen. Negative result [...] revoked sooner. Fact Sheet for Healthcare Providers: https://www.[employer]adesh[employer] m/Documents/Xpert%20Xpress%20SARS%20CoV-2/Fact%20Sheets/3023802%08HLQX-OTB-7%20 HEALTHCARE%20PROVIDERS%20FACT%20SHEET.pdf Fact Sheet for Healthcare Patients: https://www.[employer]/Documents/Xpert%20Xp ress%20SARS%20CoV-2/Fact%20Sheets/302-3801%85CZOH-BYB-9%20PATIENT%20FACT%20SHEET .pdfSURGICAL PATHOLOGY [id number] 19:37:37 Test Item Value Reference Range Interpretation Comments Case Report (test code Surgical Pathology ? ? = [id number]) ?Case: [id number] ? Authorizing Provider: ?Lawrence Peterson MD ?Collected: ? 06/03/2022 1042 ?Ordering Location: ? ? [facility] OR ? Received: ?06/03/2022 1154 ? Department ? Pathologist: ? Tatyana Monroe, ? MD PhD ? Specimen: ? ?OTHER, IVC FOREIGN BODY ? Final Diagnosis (test u3xaiQNgANZax8aoNFCzbT code = 7998532564) FuZzEwMzNcZnRuYmpcdWMx IHtccnRmMVxlcGljMTAyMD SxNW9nuJgweSk3zLecRXIy hwH1tSNyVQfvc0wkQYH9q4 ovokvnAPCtCGaoBq8wbSZc aVkzUxLmCJHxYXs8qO60EJ GlnU6ruITvBZj4ABBfwKPm vuUtLvEcKIQfpYNgaWA9UT OxKP0ccykuWOdqDVzgHFXn oiI0DVNllCCkP9BwFJOoHM 0llojvILD5PVsgULPzVWB0 JaEpTQIsf3Hkslx8TtSpvJ FyZFxwbGFpblxmczIwXHBh ciBBLiBIRUFSVCwgUkVNT1 ZBTCBPRiBJTkZFUklPUiBW KE0AMAUXUsKoLx2IZZuPAs RQC0QXHqChsKMfXDEuSQIc YK7FQRJCYCnLMR8FEJuHLU ftNBEGKPJUSLGMSfUKH8GY BmTzU1wKBILAOaUWRmkVMa YODP3CVFZJViYpFhdJKTJO NRypZKJtEAHaSRTpE9Wtp8 CwIYzjmDkdQHArb98zx54p zKvlt1SlSKaje2HfGAJrg9 YeuGQ1rD5kUF7tFMFpsnLq WDKwYKIGWHQmW66IPATTLM 8zpHKzrMddoiPqHAnjd7Mv R0WaKoFoPOfmqvPdPQWiQt ozdworKOHcKJC6apUmLCCi QJybSGSbNOrrXv5lnALaaW lnUjUcSMYxr1iavmAJYWyy LiOaY735YLJgNRmww1cqw6 HzKHCwfZAin7A6JUMVebyy nMi5v7tgAkPcHuE1tNWlCY ccT4egsvQfgFZrZ2AwvSYj bRl1eRltQ83kq6D7DrioT0 kkTHGwUXPsI4KuCQ7wQKCq Lhl6XIN9UOU4JNWkGNGgW7 TaNZ8dEEWsmCSpZKs6f3gk zDgvMNDjIMO5z2ovCDesro C1MI4xaf2hiCh0t8vkugAi EFOyMOMinZUBVHDpV6VpjH slSj4jpDy9cLgsPcbbNSP7 Dde0SP9hwf99gbf6nImuYN LolrbuVrP2IJdcJZVeuyrr IAm7XRbvYDQigXN4CQZecS EwC1BpUHMgJS2shws1XVW4 CSogREQvMrW7YSEwpOGqRD JwyDwmIMnms244MDW3JiNh HI0aE6Btt7I3eG7brNOoIW CjnJXaIeTfRFYqjh4lmDDi GBbmx3KdSWD7hdM7gHLoiU EzZZEcQT42Lhonq5DmKimv NTF4RZIuowYit9Bol9cpRc NaydZzU2ghI5MeZMFjQVPs HZCrZtEijyJjr1Ijo7XzpA BinRk3u1awOVNxMTQuqMid u8eiJBD9MWSaQ6K2mMNoe4 lyLXepTDWrpQI0izT6GOZq sSEbX6CprG9nRLFjFR2lmf o1w0phLUG1VAdqBRBpNuC8 ooJ4LWHqzYTpAOPujFfuRZ fdn747CHL2EzSwCVLfy8Yp A2ZscAhpG67esPwnC92jOK PaiWodvR5dsExikW3lEvUm ZnMyNFxxbFxwbGFpblxmMV xmczIwXGxhbmcxMDMzXGhp H5svAbHqKZPffRbfBXqbb5 NoXGYxXGNmMlxmczIwXHBh vtZTYNrdbnKlsCMtu88dCF xseSByZXZpZXdlZCBhbGwg g9ZjQ6ctFJ5sK7RviNDoco IppoRxWOxnRWCjf2h9iWBe vKbvf8VchOZsOT79gcJhZF CvJYP5KHYvw0wyMP69tbyk HtQciT29wdWmziSaTANvf8 lvD4msdIZfl2Xfr1KjdrNd EGrif9FsQU1vhYKhcfntvA J4GMVzwYHlqjVsvxI5zYdu WZCsqQ0tdP4ogQhtcI3eOv RnIsRlDEhxWF4bHYOoP0tw pSOoFGVcATPzF1qqGmVwuT 7ntYwwJorhzoW9XDMoqz46 Final Diagnosis Comment r5xrbLMfEBYznXWxLKRcTk (test code = bmaxOzRWKboJDkW2Pzkyyq [id number]) WZbmNG7yXL5crOmkhRXowJ PtGNAeKcQhu3juf784zCQb i1quSSJHnvebcDj5pIwzR6 4ht1N4ZatlS6igRQR4OFtj wsPmnmNbZORobIQ9WMnaxs ShCsU8CYubISEiUrI6NMVp bGKrJJO3uMtgXKShguqqQl R9HVzeBJQekdgwOHe3ABrq RSFlbDM4FZQqqDLpM4LrVP BaIO6rhms7AML6WTebLXMp RfK0RYPhaPSgTHLbdWatHI dok657DFS6ShDxBONaksCj bIdpiX5vFgSsXPvjDzOfU6 hjYnBhdDJccGFyIFRoZSBh Lp07HNYucBPbhN6yheNfwJ J4RLOxYJQzAOS7JehsX1Yt LIN8acHhjv4jtqMlxREbwC 5cbUpjbuQhttz4OUV9eAHx PALtaaXkzxVtz2V5FNMdz8 L3NNOyl9DooSxgom4yV05k ePHpCLFdsNHjtCgrzd5fTS YgdGhlIHNwZWNpbWVuIGlz RW6uGSHbDOAnz3Zcb4ZbSG ZbfqEfm40wewdniPfqSFRg FBOgkpZcR7EwsVzpAMGob6 MqaCC3mQ9fo3khg1MsMKMp cn0= Clinical Information Acute deep vein (test code = thrombosis (DVT) of 8768367683) iliac vein of both lower extremities [I82.423] Gross Description (test m7wbmQBoIBSltADnKDVaHl code = 2718471544) rmhkCmKQVgjKZrU5Tpgbyg FVkuVO0hLT9czCnfuPQjdF VjVIFeBsCay8gjn596lPPa z6fuORRQlncceBj9yUsoY3 6xu1S7EnzgG15elPOrRVX1 JZGqTYQimJQxXFOxZRX3MV SbwNTyD6dlQUUdBB8qomca NZuvXQaqHMYmqUG1CGCaaJ OnY6TtPIUwVInoNOLhjmq9 HlXgUg4gwEDtmQfuWZuqEz cacBagm2SwkKYbKYznZTMq DXHxCAlzPTExI3GHNTIbPk a6DZApQPXnIvMIBOU7HcC0 RLVtAVHSBZMxTGwwOMU5Ny kyIiBMUlIgODAwMDAwMDAw IXIrFA1pJKzieGNwBYocYj xwJLkvJ172NDglWBRvY8Qi O4YiCDhkESC7CHEjOtIhBY RySZ2OWxJuPLN9TDKiCbAk KEg4VIr2CL7GNtKuYHGdIv P7NvMoIYChMRd4ZMagBI5D DVC4SKWdUvw6YGqiFHK5NQ BhCSh9RTDuENvtvsLyLLbb TmyxDZsuU46tyYDaCDxwiG FpblxmczIwIFNQRUNJTUVO BKUssNGgGGNfigErr4WyCM jhmMjrESGbSyJsaQivwI4w WcArMRFLkMEozX0fxhXSYZ fmSCYlX7RdmxQmNHViBDHt IGxhYmVsbGVkIHdpdGggdG vpJKCwnYckhlQiR9I4spJg ZI9yCBEKYKWkyP7fYPFzSS BqAHBYIWNzviErS87eNk2c cXhqXxRpM7N6OFNdDSIai5 6rxCN2wjDnRjGiDU7unZWk iKlmGY69oLCclZJcjuugSJ FsYWLkY0KgLHNfyphfPVWz QQ46TYclDf1pBEedYT52OP JuTBqgQ0Mga7OauCMpd84n uMK7EU07OYbdaCtbKB2utG 2zXMZkg4PcayQzBODcAIQv EDZkfZMzao4yDOxpw0AaUE 5pNAgmSVaibSmvrQ7jrmJi oJLzLDBxCJMuf8JmGeDLiU Ese7BvU9alAR3kjYQcBh6p XSiyn6WxPMR8KP4hdiQ3bX 7nCP7lmVmgCEgiBWKwyPWl ZFxmczIyXHBhclxzYTMwXG SzuKLKm3EtDNISzMncREBG Q5qimHRdAWhcCJAPIOaPB4 UDPCxqDBPfD0GsT0AdcaQ7 s9wvbOokt2PdbOZaMA5caI FyfQ== Disclaimer (test code = d5ocnDXyWTMgj0zcNKHcbO 0501685511) FuZzEwMzNcZnRuYmpcdWMx XWvhweDiXNgcg6OqL2FdEw AwMFxhbnNpXGRlZmxhbmcx KTKiRFJ2coZzZYRfJBtaRE PhLHroGz3xsFOijDbhHlFx OXDbt0dwroAVSMpbOqRdN3 79ESVoJSdxc2bft4GkGYMf jIKem6G3KJKSpbzymAg7yZ arH82dh7X6PguiA6rsTIGq DGKfS2YcZN2aDOGwXeo5HC Q8GPG1WNGjDUFqC3RrXN6d TBXdlWQaNBv8t9fpfFaaAO ZvNGC1t8ldSFrzyeDjNX2i ey9izFy4f4piawBwYTNfFO CwyHXWRQAaN8TfxSkgEo0f yBk6iJquHihyPXY0Nqe8EY 5fso77myw0lMpuACIupwji SxY2WObyKHXzlqhvLOk3CQ bdSBBdfRP2MERroHTjQ7Ne FESrOE2olfl1XLL3AWonGU TxPmP1VWGpuFLdBKAjaCsn PUeha790FAZ0BnWtIQ0rM6 Jah9C0fV2gsBNzAVJdjNGw MdKxWNEhmc3kcGNlLJsfw0 NrLCC3hmT7nFBljKVmQIWh DX75Oaemd4IeQgrvs9LlX3 7jmOI3QSsul6slGW0oYrM6 ipTjKWhue3jqsX9zDbL2FQ kfND1kMZ0bHKNvfT0pxrgp XHBnYnJkcmhlYWRccGdicm LmTx9dzIxlZTU4VJipV9ej qV6yBwH9EZwkJ0mwuQ8sCT t4TKzyxQJ0GJSrhT3tXP1a mdgaq7wwVWfxDNlsRQLjsy I0hwF6MZBlxYAaC2PsgO0f MJYuUZ5tsgmcv3puAXJ0EY edNTFqFUF3DrBzDAXeg6Ou onw9AsKnz8EpyJKcYYujQ5 4al974TDKcpeJbP5dmzPRv tossmRHzzzdvNCjzlyI4XH BfpiEuo3RdNNRbLAT5UGzx ZUwrkCJtGVPmzXmwr8tsJ8 RscGFyXHBsYWluXGYxXGZz MjBcbGFuZzEwMzNcaGljaF itWPdcMsCqAOVqXLsoW7qd SaJgN0IhVZZvYjHhyDZgG4 ggVGhpcyByZXBvcnQgbWF5 IKawE0p1CGVrqoLzkFi9rw OqIhHyUPHjGHN9XFgdgUHt LLDpv2MmpvekuSIwYn3pbA GkHDYxzK7fWGVsSPTaEVpn RT4wnNf9RBPWnGXlqHYxPk WSFXJqYG32ohCgPMPWvawk t9J6KEtqHYPvo4NzmYXgG6 jkf7HzUWEbu45rNO6jj7Z6 y1ilEYA1MI0yh8UeUURvbQ FhbCJoMRNzx7Taslmoq7Ft BKOuzmHwm3NpOUMsvzYapV VyITPodtWfpm6bmrAuIUZa SHIvX8NkdofdwNphdzSeYC Smxh4dlcSnBPB1FDJQDRTn ODNvg2YebI2jnBKFMKI9xT Ettx6unfEYdERrEOFzab69 HDHrXN9bR8tbWLUbHQOtbr NdlPVwp9RwUVHygSW1bNAy AK1GNoPHs81dBYFkOYQZqr GyHBTrdRfxzZW6afX2rP4o IChGREEpLlx+IFRoZSBGRE QlWJ9mpcFwb0QzuzUhwImh JCVmiWVxu7KikTSsm0NkmB uzb5XeiPSouLBlPC1uWMNn clxwYXIgVVRNQiBMYWJvcm E4d8YeWCKqPZQhOID3xCcd edm8KZDbpM9nWWNjY1ihxh mlJSysYSRon1SppA8gfNUL yCIzl2OicAIasJWUnFJbJU 2yraDoATtINIjXZFX5fiLn QDEsc6DmMPyfQ2bmG72odX cyxLe1mPI9FRX8tO7gHgf+ IFxwYXJccGFyIEFwcHJvcH ScIKKhlLyhqsMrN5RsssPr kM2ufMGxxaWcOV2dJI6rN5 X9cVChALBxxbInz6feFGvb dmUgYmVlbiByZXZpZXdlZC Cby4DoGQtkGQF2XJhiofOj bmNsdWRpbmcgSCZFLCBTcG OzlBNmMYN5LBmmsxDwpoVn JU6kmL1orLhzjE7zyYUntV C6oxmmBHPtBHHxbVipKCLq YJ0ntIVfQGRzwrIEsZnxmN TefO8eL5ZtWZFyFSGsae3g GRAajG9fWChme7UxzpwkUN QvPYNsIRUkbkKnyx2aMEJp dAGKLJ8ZHCkhiEGqy8Qxyr SaX6kRQIV5AQLnTzZkWpge LNOhjTAroJYeKHOziz66TM DncN4qlIcyKSFztS2vzR2p rOnpsM4qQjBsHtIxAYzsZI 7uUGWgN3yvyMRiKUUxUAXw Y1ugRpTkwA1lfGsuMFseTi VtQvIeUOtdRLP2cN== Embedded Images (test code = 1921816035) [facility] METABOLIC PANEL (NA, K, CL, CO2, GLUCOSE, BUN, CREATININE, CA)2022-06-07 09:52:38 Test Item Value Reference Range Interpretation Comments NA (test code = 135 mmol/L 135-145 7900951288) K (test code = 4.0 mmol/L 3.5-5.0 5716867702) CL (test code = 104 mmol/L 98-108 7787955731) CO2 TOTAL (test code = 25 mmol/L 23-31 3723461537) AGAP (test code = 6 2-16 2433177796) BUN (test code = 16 mg/dL 7-23 5499180786) GLUCOSE (test code = 144 mg/dL 70-110 H 7153928685) CREATININE (test code = 1.10 mg/dL 0.60-1.25 7080340317) CALCIUM (test code = 8.4 mg/dL 8.6-10.6 L 9681551429) eGFR (test code = 68.5 mL/min/1.73m2 1553246986) DEWAYNE (test code = DEWAYNE) Association of [...] tests). Lab Interpretation Abnormal (test code = 26029-4) [facility]38 Test Item Value Reference Range Interpretation Comments MAGNESIUM (test code = 2572255405) 2.5 mg/dL 1.7-2.4 H Lab Interpretation (test code = Abnormal 84290-8) [facility] 09:52:38 Test Item Value Reference Range Interpretation Comments PHOSPHORUS (test code = 9786479830) 3.9 mg/dL 2.5-5.0 Lab Interpretation (test code = Normal 16526-9) [facility] [id number] 12:15:07 Test Item Value Reference Range Interpretation [...] RDW-SD (test code = 51.5 fL 38.5-51.6 12963-2) RDW-CV (test code = 15.9 % 12.1-15.4 H 788-0) PLT (test code = 115 See_Comment L [Automated 777-3) message] The sy stem which generated this result transmitted reference range : 150 - 328 10*3/ ?L. The reference r mitra was not used to interpret this result as normal/abnormal . MPV (test code = 9.9 fL 9.8-13.0 38899-5) IPF % (test code = 2.9 % 1.2-10.7 Platelet count 9309133091) measured by fluorescence method. NRBC/100 WBC (test 0.3 See_Comment [Automat ed code = 5233271501) message] The system which generated this result transmitted reference range : 0.0 - 10.0 /100 WBCs. The refer ence range was not u sed to interpret th is result as normal/abnormal . NRBC x10^3 (test code 0.02 See_Comment [Auto mated = 4678924145) message] The s ystem which generated this result transmitted reference range : 10*3/?L. The reference range was not used to interpret this result as normal/abnormal . GRAN MAT (NEUT) % 60.5 % (test code = 770-8) IMM GRAN % (test code 1.70 % = 9971912115) LYMPH % (test code = 24.7 % 736-9) MONO % (test code = 8.7 % 5905-5) EOS % (test code = 3.9 % 713-8) BASO % (test code = 0.5 % 706-2) GRAN MAT x10^3(ANC) 3.84 10*3/uL 1.99-6.95 (test code = 7692908125) IMM GRAN x10^3 (test 0.11 10*3/uL 0.00-0.06 H code = 1095508557) LYMPH x10^3 (test code 1.57 10*3/uL 1.09-3.23 = 731-0) MONO x10^3 (test code 0.55 10*3/uL 0.36-1.02 = 742-7) EOS x10^3 (test code = 0.25 10*3/uL 0.06-0.53 711-2) BASO x10^3 (test code 0.03 10*3/uL 0.01-0.09 = 704-7) Lab Interpretation Abnormal (test code = 00136-3) [facility] WITH [id number] 12:15:07 Test Item Value Reference Range Interpretation Comments WBC (test code = 6.35 See_Comment [Automated 2490-2) message] The sy stem which generated this result transmitted reference range : 4.20 - 10.70 10*3/?L. The reference range was not used to interpret this result as normal/abnormal . RBC (test code = 2.65 See_Comment L [Automated 109-8) message] The sy [...] RDW-SD (test code = 51.5 fL 38.5-51.6 88351-4) RDW-CV (test code = 15.9 % 12.1-15.4 H 788-0) PLT (test code = 115 See_Comment L [Automated 777-3) message] The sy stem which generated this result transmitted reference range : 150 - 328 10*3/ ?L. The reference r mitra was not used to interpret this result as normal/abnormal . MPV (test code = 9.9 fL 9.8-13.0 32060-2) IPF % (test code = 2.9 % 1.2-10.7 Platelet count 2024871535) measured by fluorescence method. NRBC/100 WBC (test 0.3 See_Comment [Automat ed code = 7440079307) message] The system which generated this result transmitted reference range : 0.0 - 10.0 /100 WBCs. The refer ence range was not u sed to interpret th is result as normal/abnormal . NRBC x10^3 (test code 0.02 See_Comment [Auto mated = 0772214828) message] The s ystem which generated this result transmitted reference range : 10*3/?L. The reference range was not used to interpret this result as normal/abnormal . GRAN MAT (NEUT) % 60.5 % (test code = 770-8) IMM GRAN % (test code 1.70 % = 1271181536) LYMPH % (test code = 24.7 % 736-9) MONO % (test code = 8.7 % 5905-5) EOS % (test code = 3.9 % 713-8) BASO % (test code = 0.5 % 706-2) GRAN MAT x10^3(ANC) 3.84 10*3/uL 1.99-6.95 (test code = 7797420027) IMM GRAN x10^3 (test 0.11 10*3/uL 0.00-0.06 H code = 1371569026) LYMPH x10^3 (test code 1.57 10*3/uL 1.09-3.23 = 731-0) MONO x10^3 (test code 0.55 10*3/uL 0.36-1.02 = 742-7) EOS x10^3 (test code = 0.25 10*3/uL 0.06-0.53 711-2) BASO x10^3 (test code 0.03 10*3/uL 0.01-0.09 = 704-7) Lab Interpretation Abnormal (test code = 02451-1) [facility]01 Test Item Value Reference Range Interpretation Comments MAGNESIUM (test code = 0648136185) 2.4 mg/dL 1.7-2.4 Lab Interpretation (test code = Normal 72218-2) [facility] 11:43:01 Test Item Value Reference Range Interpretation Comments PHOSPHORUS (test code = 0497681915) 4.1 mg/dL 2.5-5.0 Lab Interpretation (test code = Normal 49659-1) [facility] (NA, K, CL, CO2, GLUCOSE, BUN, CREATININE, CA)2022-06-05 11:43:01 Test Item Value Reference Range Interpretation Comments NA (test code = 137 mmol/L 135-145 4225613429) K (test code = 3.8 mmol/L 3.5-5.0 8746264110) CL (test code = 105 mmol/L 98-108 4025742060) CO2 TOTAL (test code = 28 mmol/L 23-31 9591040075) AGAP (test code = 4 2-16 9342952141) BUN (test code = 17 mg/dL 7-23 9950709666) GLUCOSE (test code = 86 mg/dL 70-110 6269024594) CREATININE (test code = 1.06 mg/dL 0.60-1.25 6314708308) CALCIUM (test code = 8.4 mg/dL 8.6-10.6 L 7783967141) eGFR (test code = 71.5 mL/min/1.73m2 8093038393) DEWAYNE (test code = DEWAYNE) Association of [...] tests). Lab Interpretation Abnormal (test code = 39129-9) [facility] 11:43:01 Test Item Value Reference Range Interpretation Comments MAGNESIUM (test code = 6558569856) 2.4 mg/dL 1.7-2.4 Lab Interpretation (test code = Normal 10676-2) [facility] 11:43:01 Test Item Value Reference Range Interpretation Comments PHOSPHORUS (test code = 8635184098) 4.1 mg/dL 2.5-5.0 Lab Interpretation (test code = Normal 10034-8) [facility] (NA, K, CL, CO2, GLUCOSE, BUN, CREATININE, CA)2022-06-05 11:43:01 Test Item Value Reference Range Interpretation Comments NA (test code = 137 mmol/L 135-145 6191640809) K (test code = 3.8 mmol/L 3.5-5.0 6817994272) CL (test code = 105 mmol/L 98-108 3724113450) CO2 TOTAL (test code = 28 mmol/L 23-31 5501937476) AGAP (test code = 4 2-16 6974528865) BUN (test code = 17 mg/dL 7-23 0679421954) GLUCOSE (test code = 86 mg/dL 70-110 9010815757) CREATININE (test code = 1.06 mg/dL 0.60-1.25 2439237785) CALCIUM (test code = 8.4 mg/dL 8.6-10.6 L 4137662270) eGFR (test code = 71.5 mL/min/1.73m2 9810350981) DEWAYNE (test code = DEWAYNE) Association of [...] tests). Lab Interpretation Abnormal (test code = 86023-0) [facility] (39098[facility] (ALB,T.PRO,BILI T,BU/BC,ALT,AST,ALK PHOS)2022-06-04 08:25:57 Test Item Value Reference Range Interpretation Comments TOTAL BILI (test code = 3687506580) 0.7 mg/dL 0.1-1.1 BILI UNCON (test code = 4313749971) 0.3 mg/dL 0.1-1.1 BILI CONJ (test code = 6629365741) 0.0 mg/dL 0.0-0.3 T PROTEIN (test code = 7261906831) 6.4 g/dL 6.3-8.2 ALBUMIN (test code = 8844781688) 3.7 g/dL 3.5-5.0 ALK PHOS (test code = 2057647642) 105 U/L 34-122 ALTv (test code = 1742-6) 71 U/L 5-50 H AST(SGOT) (test code = 9454928263) 51 U/L 13-40 H Lab Interpretation (test code = Abnormal 27681-3) [facility] (66121) (ALB,T.PRO,BILI T,BU/BC,ALT,AST,ALK PHOS)2022-06-04 08:25:57 Test Item Value Reference Range Interpretation Comments TOTAL BILI (test code = 1022653462) 0.7 mg/dL 0.1-1.1 BILI UNCON (test code = 3591890293) 0.3 mg/dL 0.1-1.1 BILI CONJ (test code = 9569702309) 0.0 mg/dL 0.0-0.3 T PROTEIN (test code = 6198787519) 6.4 g/dL 6.3-8.2 ALBUMIN (test code = 3087575948) 3.7 g/dL 3.5-5.0 ALK PHOS (test code = 5196064371) 105 U/L 34-122 ALTv (test code = 1742-6) 71 U/L 5-50 H AST(SGOT) (test code = 9667063128) 51 U/L 13-40 H Lab Interpretation (test code = Abnormal 01421-9) [facility]TR[facility] [id number] 06:14:08 Test Item Value Reference Range Interpretation Comments TROPONIN I (test code = 0.027 ng/mL <=0.034 2922050034) DEWAYNE (test code = DEWAYNE) Reference (Normal) [...] biotin. Lab Interpretation Normal (test code = 19145-5) [facility] CenterTR[facility] [id number] 06:14:08 Test Item Value Reference Range Interpretation Comments TROPONIN I (test code = 0.027 ng/mL <=0.034 4573940508) DEWAYNE (test code = DEWAYNE) Reference (Normal) [...] biotin. Lab Interpretation Normal (test code = 69595-0) [facility] WITH [id number] 05:33:25 Test Item Value Reference Range Interpretation Comments WBC (test code = 9.78 See_Comment [Automated 9033-2) message] The sy stem which generated this result transmitted reference range : 4.20 - 10.70 10*3/?L. The reference range was not used to interpret this result as normal/abnormal . RBC (test code = 2.85 See_Comment L [Automated 831-8) message] The sy stem which generated this [...] RDW-SD (test code = 50.4 fL 38.5-51.6 84599-3) RDW-CV (test code = 15.9 % 12.1-15.4 H 788-0) PLT (test code = 121 See_Comment L [Automated 777-3) message] The sy stem which generated this result transmitted reference range : 150 - 328 10*3/ ?L. The reference r mitra was not used to interpret this result as normal/abnormal . MPV (test code = 8.7 fL 9.8-13.0 L 31590-9) IPF % (test code = 2.3 % 1.2-10.7 Platelet count 6855737042) measured by fluorescence method. NRBC/100 WBC (test 0.6 See_Comment [Automat ed code = 0756569176) message] The system which generated this result transmitted reference range : 0.0 - 10.0 /100 WBCs. The refer ence range was not u sed to interpret th is result as normal/abnormal . NRBC x10^3 (test code 0.06 See_Comment [Auto mated = 5981334031) message] The s ystem which generated this result transmitted reference range : 10*3/?L. The reference range was not used to interpret this result as normal/abnormal . GRAN MAT (NEUT) % 80.9 % (test code = 770-8) IMM GRAN % (test code 4.80 % = 1849288040) LYMPH % (test code = 8.6 % 736-9) MONO % (test code = 5.6 % 5905-5) EOS % (test code = 0.0 % 713-8) BASO % (test code = 0.1 % 706-2) GRAN MAT x10^3(ANC) 7.91 10*3/uL 1.99-6.95 H (test code = 3359641708) IMM GRAN x10^3 (test 0.47 10*3/uL 0.00-0.06 H code = 7331103921) LYMPH x10^3 (test code 0.84 10*3/uL 1.09-3.23 L = 731-0) MONO x10^3 (test code 0.55 10*3/uL 0.36-1.02 = 742-7) EOS x10^3 (test code = 0.06-0.53 L 711-2) BASO x10^3 (test code 0.01-0.09 = 704-7) Lab Interpretation Abnormal (test code = 37348-7) [facility] WITH [id number] 05:33:25 Test Item Value Reference Range Interpretation [...] RDW-SD (test code = 50.4 fL 38.5-51.6 11211-6) RDW-CV (test code = 15.9 % 12.1-15.4 H 788-0) PLT (test code = 121 See_Comment L [Automated 777-3) message] The sy stem which generated this result transmitted reference range : 150 - 328 10*3/ ?L. The reference r mitra was not used to interpret this result as normal/abnormal . MPV (test code = 8.7 fL 9.8-13.0 L 22126-5) IPF % (test code = 2.3 % 1.2-10.7 Platelet count 9332087686) measured by fluorescence method. NRBC/100 WBC (test 0.6 See_Comment [Automat ed code = 8712343770) message] The system which generated this result transmitted reference range : 0.0 - 10.0 /100 WBCs. The refer ence range was not u sed to interpret th is result as normal/abnormal . NRBC x10^3 (test code 0.06 See_Comment [Auto mated = 6356604189) message] The s ystem which generated this result transmitted reference range : 10*3/?L. The reference range was not used to interpret this result as normal/abnormal . GRAN MAT (NEUT) % 80.9 % (test code = 770-8) IMM GRAN % (test code 4.80 % = 5684214904) LYMPH % (test code = 8.6 % 736-9) MONO % (test code = 5.6 % 5905-5) EOS % (test code = 0.0 % 713-8) BASO % (test code = 0.1 % 706-2) GRAN MAT x10^3(ANC) 7.91 10*3/uL 1.99-6.95 H (test code = 1445670916) IMM GRAN x10^3 (test 0.47 10*3/uL 0.00-0.06 H code = 7654657761) LYMPH x10^3 (test code 0.84 10*3/uL 1.09-3.23 L = 731-0) MONO x10^3 (test code 0.55 10*3/uL 0.36-1.02 = 742-7) EOS x10^3 (test code = 0.06-0.53 L 711-2) BASO x10^3 (test code 0.01-0.09 = 704-7) Lab Interpretation Abnormal (test code = 89582-9) [facility] (NA, K, CL, CO2, GLUCOSE, BUN, CREATININE, CA)2022-06-04 05:32:04 Test Item Value Reference Range Interpretation Comments NA (test code = 136 mmol/L 135-145 5245684232) K (test code = 4.1 mmol/L 3.5-5.0 2681469133) CL (test code = 104 mmol/L 98-108 3481259872) CO2 TOTAL (test code = 25 mmol/L 23-31 8466831756) AGAP (test code = 7 2-16 8996847218) BUN (test code = 19 mg/dL 7-23 2391266077) GLUCOSE (test code = 166 mg/dL 70-110 H 0075364803) CREATININE (test code = 1.00 mg/dL 0.60-1.25 6187551387) CALCIUM (test code = 8.8 mg/dL 8.6-10.6 1041403624) eGFR (test code = 76.5 mL/min/1.73m2 2131201669) DEWAYNE (test code = DEWAYNE) Association of [...] tests). Lab Interpretation Abnormal (test code = 01238-1) [facility] METABOLIC PANEL (NA, K, CL, CO2, GLUCOSE, BUN, CREATININE, CA)2022-06-04 05:32:04 Test Item Value Reference Range Interpretation Comments NA (test code = 136 mmol/L 135-145 6669285354) K (test code = 4.1 mmol/L 3.5-5.0 3450002516) CL (test code = 104 mmol/L 98-108 9031884607) CO2 TOTAL (test code = 25 mmol/L 23-31 5238723263) AGAP (test code = 7 2-16 0842092672) BUN (test code = 19 mg/dL 7-23 2854456390) GLUCOSE (test code = 166 mg/dL 70-110 H 6402914663) CREATININE (test code = 1.00 mg/dL 0.60-1.25 7918885628) CALCIUM (test code = 8.8 mg/dL 8.6-10.6 8200499428) eGFR (test code = 76.5 mL/min/1.73m2 5479462418) DEWAYNE (test code = DEWAYNE) Association of [...] tests). Lab Interpretation Abnormal (test code = 68070-1) [facility] (for use with Heparin Drip)2022-06-04 05:24:43 Test Item Value Reference Range Interpretation Comments APTT Patient (test code 105 See_Comment [Au tomated message] = 3173-2) The system [employer] generated this result transmitted ref erence range: 26 - 36 Seconds. The reference range was not used to int erpret this result as normal/abnormal . Lab Interpretation (test Abnormal code = 22473-9) [facility] (for use with Heparin Drip)2022-06-04 05:24:43 Test Item Value Reference Range Interpretation Comments APTT Patient (test code 105 See_Comment [Au tomated message] = 3173-2) The system [employer] generated this result transmitted ref erence range: 26 - 36 Seconds. The reference range was not used to int erpret this result as normal/abnormal . Lab Interpretation (test Abnormal code = 92622-0) [facility]K+GLU[facility]CA2+2022-06-04 02:57:07 Test Item Value Reference Range Interpretation Comments PH (test code = 2) 7.31 7.35-7.45 L PCO2 (test code = 42 See_Comment [Automate d message] 4689905513) The system [employer] generated this result transmit elizabeth reference range : 35 - 45 mmHg. The reference range was not used to interpret this result as normal/abnormal . PO2 (test code = 144 See_Comment H [Automated message] 6151935114) The system [employer] generated this result transmit elizabeth reference range : 80 - 100 mmHg. The reference range was not used to interpret this result as normal/abnormal . HCO3 (test code = 21 See_Comment L [Automate d message] 7366865930) The system [employer] generated this result transmit elizabeth reference range : 22 - 26 mEq/L. The reference range was not used to interpret this result as normal/abnormal . BE (test code = -4.8 See_Comment L [Automated message] 9488134744) The system [employer] generated this result transmit elizabeth reference range : -3.0 - 3.0 mEq/ L. The reference r mitra was not used to interpret this result as normal/abnormal . THB (test code = 9.6 g/dL 13.5-18.0 L 6328197633) %O2HB (test code = 98.4 % 94.0-99.0 1794298172) %COHB ART (test code = 0.1 % 0.0-1.5 3359428019) %METHB ART (test code = 0.1 % 0.4-1.5 L 8714704821) VOL%O2 ART (test code = 13.6 % 15.0-23.0 L QUES 5989768666) NA (test code = 133 mmol/L 135-145 L 2049693702) K+ (test code = 4.6 mmol/L 3.5-5.0 0564875371) AC CA IONZ (test code = 4.40 mg/dL 4.50-5.30 L 0504316742) GLUCOSE (test code = 148 mg/dL 70-110 H 1620949246) Lab Interpretation Abnormal (test code = 64069-7) [facility]K+GLU[facility]CA2+2022-06-04 02:57:07 Test Item Value Reference Range Interpretation Comments PH (test code = 2) 7.31 7.35-7.45 L PCO2 (test code = 42 See_Comment [Automate d message] 1394955794) The system [employer] generated this result transmit elizabeth reference range : 35 - 45 mmHg. The reference range was not used to interpret this result as normal/abnormal . PO2 (test code = 144 See_Comment H [Automated message] 5404687697) The system [employer] generated this result transmit elizabeth reference range : 80 - 100 mmHg. The reference range was not used to interpret this result as normal/abnormal . HCO3 (test code = 21 See_Comment L [Automate d message] 4372716798) The system [employer] generated this result transmit elizabeth reference range : 22 - 26 mEq/L. The reference range was not used to interpret this result as normal/abnormal . BE (test code = -4.8 See_Comment L [Automated message] 4086306754) The system [employer] generated this result transmit elizabeth reference range : -3.0 - 3.0 mEq/ L. The reference r mitra was not used to interpret this result as normal/abnormal . THB (test code = 9.6 g/dL 13.5-18.0 L 5745059104) %O2HB (test code = 98.4 % 94.0-99.0 7015957513) %COHB ART (test code = 0.1 % 0.0-1.5 9016908242) %METHB ART (test code = 0.1 % 0.4-1.5 L 2672356512) VOL%O2 ART (test code = 13.6 % 15.0-23.0 L QUES 6809674859) NA (test code = 133 mmol/L 135-145 L 3824338084) K+ (test code = 4.6 mmol/L 3.5-5.0 1629205893) AC CA IONZ (test code = 4.40 mg/dL 4.50-5.30 L 1881496480) GLUCOSE (test code = 148 mg/dL 70-110 H 3567012897) Lab Interpretation Abnormal (test code = 64071-0) [facility]GLU[facility]CA2+2022-06-04 02:55:52 Test Item Value Reference Range Interpretation Comments PH (test code = 2) 7.31 7.35-7.45 L PCO2 (test code = 38 See_Comment [Automate d message] 3909834079) The system [employer] generated this result transmit elizabeth reference range : 35 - 45 mmHg. The reference range was not used to interpret this result as normal/abnormal . PO2 (test code = 180 See_Comment H [Automated message] 1659574269) The system [employer] generated this result transmit elizabeth reference range : 80 - 100 mmHg. The reference range was not used to interpret this result as normal/abnormal . HCO3 (test code = 19 See_Comment L [Automate d message] 8061079067) The system [employer] generated this result transmit elizabeth reference range : 22 - 26 mEq/L. The reference range was not used to interpret this result as normal/abnormal . BE (test code = -7.2 See_Comment L [Automated message] 9830791785) The system [employer] generated this result transmit elizabeth reference range : -3.0 - 3.0 mEq/ L. The reference r mitra was not used to interpret this result as normal/abnormal . THB (test code = 8.4 g/dL 13.5-18.0 L 0279617585) %O2HB (test code = 98.1 % 94.0-99.0 2604420791) %COHB ART (test code = 0.4 % 0.0-1.5 2720619569) %METHB ART (test code = 0.3 % 0.4-1.5 L 7233881279) VOL%O2 ART (test code = 12.0 % 15.0-23.0 L QUES 2449614869) NA (test code = 135 mmol/L 135-145 7130465972) K+ (test code = 4.1 mmol/L 3.5-5.0 0398300594) AC CA IONZ (test code = 4.90 mg/dL 4.50-5.30 3646692975) GLUCOSE (test code = 128 mg/dL 70-110 H 7317829735) Lab Interpretation Abnormal (test code = 48638-7) [facility]K+GLU[facility]CA2+2022-06-04 02:55:52 Test Item Value Reference Range Interpretation Comments PH (test code = 2) 7.31 7.35-7.45 L PCO2 (test code = 38 See_Comment [Automate d message] 5977216878) The system [employer] generated this result transmit elizabeth reference range : 35 - 45 mmHg. The reference range was not used to interpret this result as normal/abnormal . PO2 (test code = 180 See_Comment H [Automated message] 6825293810) The system [employer] generated this result transmit elizabeth reference range : 80 - 100 mmHg. The reference range was not used to interpret this result as normal/abnormal . HCO3 (test code = 19 See_Comment L [Automate d message] 2704490347) The system [employer] generated this result transmit elizabeth reference range : 22 - 26 mEq/L. The reference range was not used to interpret this result as normal/abnormal . BE (test code = -7.2 See_Comment L [Automated message] 4941003632) The system [employer] generated this result transmit elizabeth reference range : -3.0 - 3.0 mEq/ L. The reference r mitra was not used to interpret this result as normal/abnormal . THB (test code = 8.4 g/dL 13.5-18.0 L 3050713866) %O2HB (test code = 98.1 % 94.0-99.0 1503579124) %COHB ART (test code = 0.4 % 0.0-1.5 5224640912) %METHB ART (test code = 0.3 % 0.4-1.5 L 9368025393) VOL%O2 ART (test code = 12.0 % 15.0-23.0 L QUES 0690286294) NA (test code = 135 mmol/L 135-145 4271148235) K+ (test code = 4.1 mmol/L 3.5-5.0 2823851594) AC CA IONZ (test code = 4.90 mg/dL 4.50-5.30 5867483831) GLUCOSE (test code = 128 mg/dL 70-110 H 3115323930) Lab Interpretation Abnormal (test code = 58211-3) [facility] - ONCE Gmsuzhz8663-04-31 13:22:00 Test Item Value Reference Range Interpretation Comments ABO & RH (test code = 20) AB POSITIVE IAT (test code = 1185) Negative [facility] Xjfqill5903-57-08 13:22:00 Test Item Value Reference Range Interpretation Comments ABO & RH (test code = 20) AB POSITIVE IAT (test code = 1185) Negative [facility] WITH [id number] 11:35:29 Test Item Value Reference Range Interpretation [...] RDW-SD (test code = 50.8 fL 38.5-51.6 06760-2) RDW-CV (test code = 15.9 % 12.1-15.4 H 788-0) PLT (test code = 265 See_Comment [Automated 777-3) message] The sy stem which generated this result transmitted reference range : 150 - 328 10*3/ ?L. The reference r mitra was not used to interpret this result as normal/abnormal . MPV (test code = 9.0 fL 9.8-13.0 L 86350-0) NRBC/100 WBC (test 0.5 See_Comment [Automat ed code = 1276673231) message] The system which generated this result transmitted reference range : 0.0 - 10.0 /100 WBCs. The refer ence range was not u sed to interpret th is result as normal/abnormal . NRBC x10^3 (test code 0.06 See_Comment [Auto mated = 6721016386) message] The s ystem which generated this result transmitted reference range : 10*3/?L. The reference range was not used to interpret this result as normal/abnormal . GRAN MAT (NEUT) % 67.4 % (test code = 770-8) IMM GRAN % (test code 5.90 % = 8532242952) LYMPH % (test code = 13.6 % 736-9) MONO % (test code = 8.5 % 5905-5) EOS % (test code = 4.1 % 713-8) BASO % (test code = 0.5 % 706-2) GRAN MAT x10^3(ANC) 7.42 10*3/uL 1.99-6.95 H (test code = 4076815938) IMM GRAN x10^3 (test 0.65 10*3/uL 0.00-0.06 H code = 7645571068) LYMPH x10^3 (test code 1.50 10*3/uL 1.09-3.23 = 731-0) MONO x10^3 (test code 0.94 10*3/uL 0.36-1.02 = 742-7) EOS x10^3 (test code = 0.45 10*3/uL 0.06-0.53 711-2) BASO x10^3 (test code 0.06 10*3/uL 0.01-0.09 = 704-7) Lab Interpretation Abnormal (test code = 07098-1) [facility] WITH [id number] 11:35:29 Test Item Value Reference Range Interpretation [...] RDW-SD (test code = 50.8 fL 38.5-51.6 33705-6) RDW-CV (test code = 15.9 % 12.1-15.4 H 788-0) PLT (test code = 265 See_Comment [Automated 777-3) message] The sy stem which generated this result transmitted reference range : 150 - 328 10*3/ ?L. The reference r mitra was not used to interpret this result as normal/abnormal . MPV (test code = 9.0 fL 9.8-13.0 L 24859-5) NRBC/100 WBC (test 0.5 See_Comment [Automat ed code = 8556400533) message] The system which generated this result transmitted reference range : 0.0 - 10.0 /100 WBCs. The refer ence range was not u sed to interpret th is result as normal/abnormal . NRBC x10^3 (test code 0.06 See_Comment [Auto mated = 0549942434) message] The s ystem which generated this result transmitted reference range : 10*3/?L. The reference range was not used to interpret this result as normal/abnormal . GRAN MAT (NEUT) % 67.4 % (test code = 770-8) IMM GRAN % (test code 5.90 % = 1656112828) LYMPH % (test code = 13.6 % 736-9) MONO % (test code = 8.5 % 5905-5) EOS % (test code = 4.1 % 713-8) BASO % (test code = 0.5 % 706-2) GRAN MAT x10^3(ANC) 7.42 10*3/uL 1.99-6.95 H (test code = 6538948777) IMM GRAN x10^3 (test 0.65 10*3/uL 0.00-0.06 H code = 5753263963) LYMPH x10^3 (test code 1.50 10*3/uL 1.09-3.23 = 731-0) MONO x10^3 (test code 0.94 10*3/uL 0.36-1.02 = 742-7) EOS x10^3 (test code = 0.45 10*3/uL 0.06-0.53 711-2) BASO x10^3 (test code 0.06 10*3/uL 0.01-0.09 = 704-7) Lab Interpretation Abnormal (test code = 00388-5) [facility]20[facility] 11:30:46 Test Item Value Reference Range Interpretation Comments MAGNESIUM (test code = 4054137534) 2.4 mg/dL 1.7-2.4 Lab Interpretation (test code = Normal 07918-2) [facility]2023-[facility] 11:30:46 Test Item Value Reference Range Interpretation Comments PHOSPHORUS (test code = 8649765503) 4.8 mg/dL 2.5-5.0 Lab Interpretation (test code = Normal 99622-5) [facility] (NA, K, CL, CO2, GLUCOSE, BUN, CREATININE, CA)2022-06-03 11:30:46 Test Item Value Reference Range Interpretation Comments NA (test code = 136 mmol/L 135-145 9555572990) K (test code = 4.2 mmol/L 3.5-5.0 2485258512) CL (test code = 104 mmol/L 98-108 3243479015) CO2 TOTAL (test code 26 mmol/L 23-31 = 0416325794) AGAP (test code = 6 2-16 8192791404) BUN (test code = 18 mg/dL 7-23 4220528824) GLUCOSE (test code = 103 mg/dL 70-110 1668852082) CREATININE (test code 1.08 mg/dL 0.60-1.25 = 9022931913) CALCIUM (test code = 8.7 mg/dL 8.6-10.6 5480877942) eGFR (test code = 70.0 mL/min/1.73m2 3968525147) DEWAYNE (test code = DEWAYNE) Association of [...] urine or abnormalities in imaging tests). [facility] 11:30:46 Test Item Value Reference Range Interpretation Comments MAGNESIUM (test code = 4350581117) 2.4 mg/dL 1.7-2.4 Lab Interpretation (test code = Normal 95468-5) [facility] 11:30:46 Test Item Value Reference Range Interpretation Comments PHOSPHORUS (test code = 2050497558) 4.8 mg/dL 2.5-5.0 Lab Interpretation (test code = Normal 26307-5) [facility] (NA, K, CL, CO2, GLUCOSE, BUN, CREATININE, CA)2022-06-03 11:30:46 Test Item Value Reference Range Interpretation Comments NA (test code = 136 mmol/L 135-145 7198864820) K (test code = 4.2 mmol/L 3.5-5.0 2080878318) CL (test code = 104 mmol/L 98-108 2805963542) CO2 TOTAL (test code 26 mmol/L 23-31 = 8999407027) AGAP (test code = 6 2-16 1091705937) BUN (test code = 18 mg/dL 7-23 8157616399) GLUCOSE (test code = 103 mg/dL 70-110 6807458723) CREATININE (test code 1.08 mg/dL 0.60-1.25 = 4798479922) CALCIUM (test code = 8.7 mg/dL 8.6-10.6 5942665761) eGFR (test code = 70.0 mL/min/1.73m2 4626002826) DEWAYNE (test code = DEWAYNE) Association of [...] or urine or abnormalities in imaging tests). [facility] (for use with Heparin Drip)2022-06-03 11:15:05 Test Item Value Reference Range Interpretation Comments APTT Patient (test code 52 See_Comment H [Au tomated message] = 4603-2) The system [employer] generated this result transmitted ref erence range: 26 - 36 Seconds. The reference range was not used to int erpret this result as normal/abnormal . Lab Interpretation (test Abnormal code = 46747-1) [facility] (for use with Heparin Drip)2022-06-03 11:15:05 Test Item Value Reference Range Interpretation Comments APTT Patient (test code 52 See_Comment H [Au tomated message] = 3563-2) The system [employer] generated this result transmitted ref erence range: 26 - 36 Seconds. The reference range was not used to int erpret this result as normal/abnormal . Lab Interpretation (test Abnormal code = 88569-9) [facility] METABOLIC PANEL (NA, K, CL, CO2, GLUCOSE, BUN, CREATININE, CA)2022-06-02 13:56:04 Test Item Value Reference Range Interpretation Comments NA (test code = 137 mmol/L 135-145 8732379083) K (test code = 4.4 mmol/L 3.5-5.0 0662067795) CL (test code = 105 mmol/L 98-108 6771130933) CO2 TOTAL (test code 27 mmol/L 23-31 = 3869053657) AGAP (test code = 5 2-16 8581235140) BUN (test code = 19 mg/dL 7-23 6375935053) GLUCOSE (test code = 92 mg/dL 70-110 8742004770) CREATININE (test code 0.96 mg/dL 0.60-1.25 = 3611320461) CALCIUM (test code = 8.7 mg/dL 8.6-10.6 3819424321) eGFR (test code = 80.2 mL/min/1.73m2 5021608020) DEWAYNE (test code = DEWAYNE) Association of [...] or urine or abnormalities in imaging tests). [facility] METABOLIC PANEL (NA, K, CL, CO2, GLUCOSE, BUN, CREATININE, CA)2022-06-02 13:56:04 Test Item Value Reference Range Interpretation Comments NA (test code = 137 mmol/L 135-145 3565919847) K (test code = 4.4 mmol/L 3.5-5.0 2359100584) CL (test code = 105 mmol/L 98-108 3301468692) CO2 TOTAL (test code 27 mmol/L 23-31 = 4329265785) AGAP (test code = 5 2-16 0482185407) BUN (test code = 19 mg/dL 7-23 7882122069) GLUCOSE (test code = 92 mg/dL 70-110 8365681190) CREATININE (test code 0.96 mg/dL 0.60-1.25 = 3211987403) CALCIUM (test code = 8.7 mg/dL 8.6-10.6 8020242756) eGFR (test code = 80.2 mL/min/1.73m2 5289249013) DEWAYNE (test code = DEWAYNE) Association of [...] or urine or abnormalities in imaging tests). [facility] WITH [id number] 11:30:12 Test Item Value Reference Range Interpretation [...] RDW-SD (test code = 50.1 fL 38.5-51.6 20090-6) RDW-CV (test code = 15.8 % 12.1-15.4 H 788-0) PLT (test code = 239 See_Comment [Automated 777-3) message] The sy stem which generated this result transmitted reference range : 150 - 328 10*3/ ?L. The reference r mitra was not used to interpret this result as normal/abnormal . MPV (test code = 9.1 fL 9.8-13.0 L 40675-1) NRBC/100 WBC (test 0.8 See_Comment [Automat ed code = 4827112029) message] The system which generated this result transmitted reference range : 0.0 - 10.0 /100 WBCs. The refer ence range was not u sed to interpret th is result as normal/abnormal . NRBC x10^3 (test code 0.07 See_Comment [Auto mated = 7193719357) message] The s ystem which generated this result transmitted reference range : 10*3/?L. The reference range was not used to interpret this result as normal/abnormal . GRAN MAT (NEUT) % 56.4 % (test code = 770-8) IMM GRAN % (test code 6.70 % = 0806166970) LYMPH % (test code = 23.9 % 736-9) MONO % (test code = 7.3 % 5905-5) EOS % (test code = 4.9 % 713-8) BASO % (test code = 0.8 % 706-2) GRAN MAT x10^3(ANC) 4.93 10*3/uL 1.99-6.95 (test code = 7995437806) IMM GRAN x10^3 (test 0.59 10*3/uL 0.00-0.06 H code = 2627468940) LYMPH x10^3 (test code 2.09 10*3/uL 1.09-3.23 = 731-0) MONO x10^3 (test code 0.64 10*3/uL 0.36-1.02 = 742-7) EOS x10^3 (test code = 0.43 10*3/uL 0.06-0.53 711-2) BASO x10^3 (test code 0.07 10*3/uL 0.01-0.09 = 704-7) Lab Interpretation Abnormal (test code = 31787-9) [facility] WITH [id number] 11:30:12 Test Item Value Reference Range Interpretation [...] RDW-SD (test code = 50.1 fL 38.5-51.6 31210-9) RDW-CV (test code = 15.8 % 12.1-15.4 H 788-0) PLT (test code = 239 See_Comment [Automated 777-3) message] The sy stem which generated this result transmitted reference range : 150 - 328 10*3/ ?L. The reference r mitra was not used to interpret this result as normal/abnormal . MPV (test code = 9.1 fL 9.8-13.0 L 05008-2) NRBC/100 WBC (test 0.8 See_Comment [Automat ed code = 5098461157) message] The system which generated this result transmitted reference range : 0.0 - 10.0 /100 WBCs. The refer ence range was not u sed to interpret th is result as normal/abnormal . NRBC x10^3 (test code 0.07 See_Comment [Auto mated = 2893433478) message] The s ystem which generated this result transmitted reference range : 10*3/?L. The reference range was not used to interpret this result as normal/abnormal . GRAN MAT (NEUT) % 56.4 % (test code = 770-8) IMM GRAN % (test code 6.70 % = 7043928603) LYMPH % (test code = 23.9 % 736-9) MONO % (test code = 7.3 % 5905-5) EOS % (test code = 4.9 % 713-8) BASO % (test code = 0.8 % 706-2) GRAN MAT x10^3(ANC) 4.93 10*3/uL 1.99-6.95 (test code = 4823329299) IMM GRAN x10^3 (test 0.59 10*3/uL 0.00-0.06 H code = 3814862729) LYMPH x10^3 (test code 2.09 10*3/uL 1.09-3.23 = 731-0) MONO x10^3 (test code 0.64 10*3/uL 0.36-1.02 = 742-7) EOS x10^3 (test code = 0.43 10*3/uL 0.06-0.53 711-2) BASO x10^3 (test code 0.07 10*3/uL 0.01-0.09 = 704-7) Lab Interpretation Abnormal (test code = 58757-7) [facility]2023-04-20 11:16:48 Test Item Value Reference Range Interpretation Comments MAGNESIUM (test code = [id number]) 2.3 mg/dL 1.7-2.4 Lab Interpretation (test code = Normal 55013-5) [facility]2023-04-20 11:16:48 Test Item Value Reference Range Interpretation Comments PHOSPHORUS (test code = [id number]) 4.8 mg/dL 2.5-5.0 Lab Interpretation (test code = Normal 67212-8) [facility]2023-04-20 11:16:48 Test Item Value Reference Range Interpretation Comments MAGNESIUM (test code = [id number]) 2.3 mg/dL 1.7-2.4 Lab Interpretation (test code = Normal 97099-6) [facility]2023-04-20 11:16:48 Test Item Value Reference Range Interpretation Comments PHOSPHORUS (test code = 6010756245) 4.8 mg/dL 2.5-5.0 Lab Interpretation (test code = Normal 67855-7) [facility] WITH [id number] 11:58:20 Test Item Value Reference Range Interpretation [...] RDW-SD (test code = 48.3 fL 38.5-51.6 97921-1) RDW-CV (test code = 15.2 % 12.1-15.4 788-0) PLT (test code = 181 See_Comment [Automated 777-3) message] The sy stem which generated this result transmitted reference range : 150 - 328 10*3/ ?L. The reference r mitra was not used to interpret this result as normal/abnormal . MPV (test code = 9.4 fL 9.8-13.0 L 49234-1) NRBC/100 WBC (test 0.3 See_Comment [Automat ed code = 5873552088) message] The system which generated this result transmitted reference range : 0.0 - 10.0 /100 WBCs. The refer ence range was not u sed to interpret th is result as normal/abnormal . NRBC x10^3 (test code 0.03 See_Comment [Auto mated = 9574862695) message] The s ystem which generated this result transmitted reference range : 10*3/?L. The reference range was not used to interpret this result as normal/abnormal . GRAN MAT (NEUT) % 59.7 % (test code = 770-8) IMM GRAN % (test code 5.80 % = 1953607597) LYMPH % (test code = 21.3 % 736-9) MONO % (test code = 8.7 % 5905-5) EOS % (test code = 4.1 % 713-8) BASO % (test code = 0.4 % 706-2) GRAN MAT x10^3(ANC) 5.49 10*3/uL 1.99-6.95 (test code = 2190828026) IMM GRAN x10^3 (test 0.53 10*3/uL 0.00-0.06 H code = 9403843062) LYMPH x10^3 (test code 1.96 10*3/uL 1.09-3.23 = 731-0) MONO x10^3 (test code 0.80 10*3/uL 0.36-1.02 = 742-7) EOS x10^3 (test code = 0.38 10*3/uL 0.06-0.53 711-2) BASO x10^3 (test code 0.04 10*3/uL 0.01-0.09 = 704-7) Lab Interpretation Abnormal (test code = 32824-8) [facility] WITH [id number] 11:58:20 Test Item Value Reference Range Interpretation Comments WBC (test code = 9.20 See_Comment [Automated 4290-2) message] The sy stem which generated this result transmitted reference range : 4.20 - 10.70 10*3/?L. The reference range was not used to interpret this result as normal/abnormal . RBC (test code = 3.18 See_Comment L [Automated 299-8) message] The sy [...] RDW-SD (test code = 48.3 fL 38.5-51.6 30598-9) RDW-CV (test code = 15.2 % 12.1-15.4 788-0) PLT (test code = 181 See_Comment [Automated 777-3) message] The sy stem which generated this result transmitted reference range : 150 - 328 10*3/ ?L. The reference r mitra was not used to interpret this result as normal/abnormal . MPV (test code = 9.4 fL 9.8-13.0 L 97564-5) NRBC/100 WBC (test 0.3 See_Comment [Automat ed code = 8189805542) message] The system which generated this result transmitted reference range : 0.0 - 10.0 /100 WBCs. The refer ence range was not u sed to interpret th is result as normal/abnormal . NRBC x10^3 (test code 0.03 See_Comment [Auto mated = 3440637807) message] The s ystem which generated this result transmitted reference range : 10*3/?L. The reference range was not used to interpret this result as normal/abnormal . GRAN MAT (NEUT) % 59.7 % (test code = 770-8) IMM GRAN % (test code 5.80 % = 7833460964) LYMPH % (test code = 21.3 % 736-9) MONO % (test code = 8.7 % 5905-5) EOS % (test code = 4.1 % 713-8) BASO % (test code = 0.4 % 706-2) GRAN MAT x10^3(ANC) 5.49 10*3/uL 1.99-6.95 (test code = 7192507517) IMM GRAN x10^3 (test 0.53 10*3/uL 0.00-0.06 H code = 2766173259) LYMPH x10^3 (test code 1.96 10*3/uL 1.09-3.23 = 731-0) MONO x10^3 (test code 0.80 10*3/uL 0.36-1.02 = 742-7) EOS x10^3 (test code = 0.38 10*3/uL 0.06-0.53 711-2) BASO x10^3 (test code 0.04 10*3/uL 0.01-0.09 = 704-7) Lab Interpretation Abnormal (test code = 17168-0) [facility] 11:41:55 Test Item Value Reference Range Interpretation Comments MAGNESIUM (test code = 4813338373) 2.3 mg/dL 1.7-2.4 Lab Interpretation (test code = Normal 59087-9) [facility] 11:41:55 Test Item Value Reference Range Interpretation Comments PHOSPHORUS (test code = 1867781469) 3.4 mg/dL 2.5-5.0 Lab Interpretation (test code = Normal 58012-5) [facility] (NA, K, CL, CO2, GLUCOSE, BUN, CREATININE, CA)2022-06-01 11:41:55 Test Item Value Reference Range Interpretation Comments NA (test code = 137 mmol/L 135-145 2381749994) K (test code = 4.1 mmol/L 3.5-5.0 2813016644) CL (test code = 105 mmol/L 98-108 4161054283) CO2 TOTAL (test code = 27 mmol/L 23-31 1108111994) AGAP (test code = 5 2-16 3706159252) BUN (test code = 17 mg/dL 7-23 0742443641) GLUCOSE (test code = 135 mg/dL 70-110 H 4538924176) CREATININE (test code = 0.84 mg/dL 0.60-1.25 3860242076) CALCIUM (test code = 8.4 mg/dL 8.6-10.6 L 6926953058) eGFR (test code = 93.5 mL/min/1.73m2 8113392624) DEWAYNE (test code = DEWAYNE) Association of [...] tests). Lab Interpretation Abnormal (test code = 65614-6) [facility] 11:41:55 Test Item Value Reference Range Interpretation Comments MAGNESIUM (test code = 5214485041) 2.3 mg/dL 1.7-2.4 Lab Interpretation (test code = Normal 37854-7) [facility] 11:41:55 Test Item Value Reference Range Interpretation Comments PHOSPHORUS (test code = 1042149455) 3.4 mg/dL 2.5-5.0 Lab Interpretation (test code = Normal 09060-9) [facility] (NA, K, CL, CO2, GLUCOSE, BUN, CREATININE, CA)2022-06-01 11:41:55 Test Item Value Reference Range Interpretation Comments NA (test code = 137 mmol/L 135-145 3550798214) K (test code = 4.1 mmol/L 3.5-5.0 6801940881) CL (test code = 105 mmol/L 98-108 6313736892) CO2 TOTAL (test code = 27 mmol/L 23-31 0479335985) AGAP (test code = 5 2-16 3609029295) BUN (test code = 17 mg/dL 7-23 9511849388) GLUCOSE (test code = 135 mg/dL 70-110 H 3662507058) CREATININE (test code = 0.84 mg/dL 0.60-1.25 9392304436) CALCIUM (test code = 8.4 mg/dL 8.6-10.6 L 4995330898) eGFR (test code = 93.5 mL/min/1.73m2 2019322029) DEWAYNE (test code = DEWAYNE) Association of [...] tests). Lab Interpretation Abnormal (test code = 51304-8) [facility] WITH [id number] 12:02:32 Test Item Value Reference Range Interpretation [...] RDW-SD (test code = 46.6 fL 38.5-51.6 12478-5) RDW-CV (test code = 14.9 % 12.1-15.4 788-0) PLT (test code = 154 See_Comment [Automated 777-3) message] The sy stem which generated this result transmitted reference range : 150 - 328 10*3/ ?L. The reference r mitra was not used to interpret this result as normal/abnormal . MPV (test code = 9.5 fL 9.8-13.0 L 38777-3) NRBC/100 WBC (test 0.2 See_Comment [Automat ed code = 7098415541) message] The system which generated this result transmitted reference range : 0.0 - 10.0 /100 WBCs. The refer ence range was not u sed to interpret th is result as normal/abnormal . NRBC x10^3 (test code 0.02 See_Comment [Auto mated = 8570317261) message] The s ystem which generated this result transmitted reference range : 10*3/?L. The reference range was not used to interpret this result as normal/abnormal . GRAN MAT (NEUT) % 80.7 % (test code = 770-8) IMM GRAN % (test code 4.50 % = 4780976454) LYMPH % (test code = 6.5 % 736-9) MONO % (test code = 7.3 % 5905-5) EOS % (test code = 0.6 % 713-8) BASO % (test code = 0.4 % 706-2) GRAN MAT x10^3(ANC) 7.92 10*3/uL 1.99-6.95 H (test code = 5122023915) IMM GRAN x10^3 (test 0.44 10*3/uL 0.00-0.06 H code = 8524324522) LYMPH x10^3 (test code 0.64 10*3/uL 1.09-3.23 L = 731-0) MONO x10^3 (test code 0.72 10*3/uL 0.36-1.02 = 742-7) EOS x10^3 (test code = 0.06 10*3/uL 0.06-0.53 711-2) BASO x10^3 (test code 0.04 10*3/uL 0.01-0.09 = 704-7) MEAGHAN CELLS (test code 2+ See_Comment A [Auto mated = 8490-9) message] The sy stem which generated this result transmitted reference range : (none). The reference range was not used to interpret this result as normal/abnormal . REACT LYMPHS (test Rare code = 9465710323) Lab Interpretation Abnormal (test code = 17156-4) [facility] WITH [id number] 12:02:32 Test Item Value Reference Range Interpretation Comments WBC (test code = 9.82 See_Comment [Automated 2790-2) message] The sy stem which generated this result transmitted reference range : 4.20 - 10.70 10*3/?L. The reference range was not used to interpret this result as normal/abnormal . RBC (test code = 3.82 See_Comment L [Automated 289-8) message] The sy stem which generated this [...] RDW-SD (test code = 46.6 fL 38.5-51.6 49529-2) RDW-CV (test code = 14.9 % 12.1-15.4 788-0) PLT (test code = 154 See_Comment [Automated 777-3) message] The sy stem which generated this result transmitted reference range : 150 - 328 10*3/ ?L. The reference r mitra was not used to interpret this result as normal/abnormal . MPV (test code = 9.5 fL 9.8-13.0 L 25711-6) NRBC/100 WBC (test 0.2 See_Comment [Automat ed code = 4244282844) message] The system which generated this result transmitted reference range : 0.0 - 10.0 /100 WBCs. The refer ence range was not u sed to interpret th is result as normal/abnormal . NRBC x10^3 (test code 0.02 See_Comment [Auto mated = 1697247815) message] The s ystem which generated this result transmitted reference range : 10*3/?L. The reference range was not used to interpret this result as normal/abnormal . GRAN MAT (NEUT) % 80.7 % (test code = 770-8) IMM GRAN % (test code 4.50 % = 8236809390) LYMPH % (test code = 6.5 % 736-9) MONO % (test code = 7.3 % 5905-5) EOS % (test code = 0.6 % 713-8) BASO % (test code = 0.4 % 706-2) GRAN MAT x10^3(ANC) 7.92 10*3/uL 1.99-6.95 H (test code = 9343323432) IMM GRAN x10^3 (test 0.44 10*3/uL 0.00-0.06 H code = 9530362546) LYMPH x10^3 (test code 0.64 10*3/uL 1.09-3.23 L = 731-0) MONO x10^3 (test code 0.72 10*3/uL 0.36-1.02 = 742-7) EOS x10^3 (test code = 0.06 10*3/uL 0.06-0.53 711-2) BASO x10^3 (test code 0.04 10*3/uL 0.01-0.09 = 704-7) MEAGHAN CELLS (test code 2+ See_Comment A [Auto mated = 5318-9) message] The sy stem which generated this result transmitted reference range : (none). The reference range was not used to interpret this result as normal/abnormal . REACT LYMPHS (test Rare code = 5429605959) Lab Interpretation Abnormal (test code = 02212-6) [facility] WITH [id number] 12:02:32 Test Item Value Reference Range Interpretation Comments WBC (test code = 9.82 See_Comment [Automated 5590-2) message] The sy stem which generated this result transmitted reference range : 4.20 - 10.70 10*3/?L. The reference range was not used to interpret this result as normal/abnormal . RBC (test code = 3.82 See_Comment L [Automated 179-8) message] The sy stem which generated this [...] RDW-SD (test code = 46.6 fL 38.5-51.6 00072-3) RDW-CV (test code = 14.9 % 12.1-15.4 788-0) PLT (test code = 154 See_Comment [Automated 777-3) message] The sy stem which generated this result transmitted reference range : 150 - 328 10*3/ ?L. The reference r mitra was not used to interpret this result as normal/abnormal . MPV (test code = 9.5 fL 9.8-13.0 L 33737-8) NRBC/100 WBC (test 0.2 See_Comment [Automat ed code = 7768438843) message] The system which generated this result transmitted reference range : 0.0 - 10.0 /100 WBCs. The refer ence range was not u sed to interpret th is result as normal/abnormal . NRBC x10^3 (test code 0.02 See_Comment [Auto mated = 9631713961) message] The s ystem which generated this result transmitted reference range : 10*3/?L. The reference range was not used to interpret this result as normal/abnormal . GRAN MAT (NEUT) % 80.7 % (test code = 770-8) IMM GRAN % (test code 4.50 % = 3422353601) LYMPH % (test code = 6.5 % 736-9) MONO % (test code = 7.3 % 5905-5) EOS % (test code = 0.6 % 713-8) BASO % (test code = 0.4 % 706-2) GRAN MAT x10^3(ANC) 7.92 10*3/uL 1.99-6.95 H (test code = 3521629376) IMM GRAN x10^3 (test 0.44 10*3/uL 0.00-0.06 H code = 5704438449) LYMPH x10^3 (test code 0.64 10*3/uL 1.09-3.23 L = 731-0) MONO x10^3 (test code 0.72 10*3/uL 0.36-1.02 = 742-7) EOS x10^3 (test code = 0.06 10*3/uL 0.06-0.53 711-2) BASO x10^3 (test code 0.04 10*3/uL 0.01-0.09 = 704-7) MEAGHAN CELLS (test code 2+ See_Comment A [Auto mated = 0482-7) message] The sy stem which generated this result transmitted reference range : (none). The reference range was not used to interpret this result as normal/abnormal . REACT LYMPHS (test Rare code = 5449874469) Lab Interpretation Abnormal (test code = 03590-2) [facility] 11:43:29 Test Item Value Reference Range Interpretation Comments MAGNESIUM (test code = 5601313112) 2.1 mg/dL 1.7-2.4 Lab Interpretation (test code = Normal 30919-8) [facility] 11:43:29 Test Item Value Reference Range Interpretation Comments PHOSPHORUS (test code = 3363417557) 3.7 mg/dL 2.5-5.0 Lab Interpretation (test code = Normal 30658-3) [facility] (NA, K, CL, CO2, GLUCOSE, BUN, CREATININE, CA)2022-05-31 11:43:29 Test Item Value Reference Range Interpretation Comments NA (test code = 133 mmol/L 135-145 L 7219873570) K (test code = 4.7 mmol/L 3.5-5.0 Slight 7145133924) hemolysis CL (test code = 104 mmol/L 98-108 0292426939) CO2 TOTAL (test code 25 mmol/L 23-31 = 1494939071) AGAP (test code = 4 2-16 6285057098) BUN (test code = 17 mg/dL 7-23 Slight 0464620043) hemolysis GLUCOSE (test code = 189 mg/dL 70-110 H 5438212642) CREATININE (test code 0.82 mg/dL 0.60-1.25 = 3661335423) CALCIUM (test code = 8.0 mg/dL 8.6-10.6 L 2580618373) eGFR (test code = 96.2 mL/min/1.73m2 3058139117) DEWAYNE (test code = DEWAYNE) Association of [...] tests). Lab Interpretation Abnormal (test code = 76871-5) [facility] 11:43:29 Test Item Value Reference Range Interpretation Comments MAGNESIUM (test code = 6989918629) 2.1 mg/dL 1.7-2.4 Lab Interpretation (test code = Normal 66338-5) [facility] 11:43:29 Test Item Value Reference Range Interpretation Comments PHOSPHORUS (test code = 3376121594) 3.7 mg/dL 2.5-5.0 Lab Interpretation (test code = Normal 03823-0) [facility] (NA, K, CL, CO2, GLUCOSE, BUN, CREATININE, CA)2022-05-31 11:43:29 Test Item Value Reference Range Interpretation Comments NA (test code = 133 mmol/L 135-145 L 5593661214) K (test code = 4.7 mmol/L 3.5-5.0 Slight 5439786230) hemolysis CL (test code = 104 mmol/L 98-108 6838024435) CO2 TOTAL (test code 25 mmol/L 23-31 = 3034949913) AGAP (test code = 4 2-16 1181605398) BUN (test code = 17 mg/dL 7-23 Slight 7730999761) hemolysis GLUCOSE (test code = 189 mg/dL 70-110 H 7388772486) CREATININE (test code 0.82 mg/dL 0.60-1.25 = 1679209200) CALCIUM (test code = 8.0 mg/dL 8.6-10.6 L 5616046984) eGFR (test code = 96.2 mL/min/1.73m2 1033788277) DEWAYNE (test code = DEWAYNE) Association of [...] tests). Lab Interpretation Abnormal (test code = 93275-9) [facility] Test Item Value Reference Range Interpretation Comments MAGNESIUM (test code = 4025875398) 2.1 mg/dL 1.7-2.4 Lab Interpretation (test code = Normal 48765-4) [facility] 11:43:29 Test Item Value Reference Range Interpretation Comments PHOSPHORUS (test code = 1922929025) 3.7 mg/dL 2.5-5.0 Lab Interpretation (test code = Normal 71028-5) [facility] (NA, K, CL, CO2, GLUCOSE, BUN, CREATININE, CA)2022-05-31 11:43:29 Test Item Value Reference Range Interpretation Comments NA (test code = 133 mmol/L 135-145 L 5271298605) K (test code = 4.7 mmol/L 3.5-5.0 Slight 2522633414) hemolysis CL (test code = 104 mmol/L 98-108 3406683417) CO2 TOTAL (test code 25 mmol/L 23-31 = 8089904884) AGAP (test code = 4 2-16 7632201365) BUN (test code = 17 mg/dL 7-23 Slight 0592311597) hemolysis GLUCOSE (test code = 189 mg/dL 70-110 H 5281880683) CREATININE (test code 0.82 mg/dL 0.60-1.25 = 4853321740) CALCIUM (test code = 8.0 mg/dL 8.6-10.6 L 7836565697) eGFR (test code = 96.2 mL/min/1.73m2 1137666078) DEWAYNE (test code = DEWAYNE) Association of [...] tests). Lab Interpretation Abnormal (test code = 76989-2) [facility] 11:30:44 Test Item Value Reference Range Interpretation Comments Fibrinogen (test code = 9172515573) 218 mg/dL 167-453 Lab Interpretation (test code = Normal 54799-0) [facility] Test Item Value Reference Range Interpretation Comments Fibrinogen (test code = 7792460802) 218 mg/dL 167-453 Lab Interpretation (test code = Normal 41982-6) [facility] 11:30:44 Test Item Value Reference Range Interpretation Comments Fibrinogen (test code = 1778153678) 218 mg/dL 167-453 Lab Interpretation (test code = Normal 76758-9) [facility] CenterProth[facility] / [id number] 11:29:02 Test Item Value Reference Range Interpretation Comments PROTIME PATIENT (test 12.7 See_Comment H [Auto mated message] code = 5964-2) The system [employer] generated this result transmitted ref erence range: 10.1 - 1 2.6 Seconds. The reference range was not used to int erpret this result as normal/abnormal . INR (test code = 6301-6) 1.1 Nor mal INR <1.1; Warfarin Therap eutic range 2.0 to 3. 0 or 2.5 to 3.5, dep ending upon the indica tions. Lab Interpretation (test Abnormal code = 25859-1) [facility] 11:29:02 Test Item Value Reference Range Interpretation Comments APTT Patient (test code 82 See_Comment H [Au tomated message] = 3173-2) The system [employer] generated this result transmitted ref erence range: 26 - 36 Seconds. The reference range was not used to int erpret this result as normal/abnormal . Lab Interpretation (test Abnormal code = 97541-3) [facility] / [id number] 11:29:02 Test Item Value Reference Range Interpretation Comments PROTIME PATIENT (test 12.7 See_Comment H [Auto mated message] code = 5964-2) The system [employer] generated this result transmitted ref erence range: 10.1 - 1 2.6 Seconds. The reference range was not used to int erpret this result as normal/abnormal . INR (test code = 6301-6) 1.1 Nor mal INR <1.1; Warfarin Therap eutic range 2.0 to 3. 0 or 2.5 to 3.5, dep ending upon the indica tions. Lab Interpretation (test Abnormal code = 24329-5) [facility] 11:29:02 Test Item Value Reference Range Interpretation Comments APTT Patient (test code 82 See_Comment H [Au tomated message] = 3173-2) The system [employer] generated this result transmitted ref erence range: 26 - 36 Seconds. The reference range was not used to int erpret this result as normal/abnormal . Lab Interpretation (test Abnormal code = 41103-9) [facility] / [id number] 11:29:02 Test Item Value Reference Range Interpretation Comments PROTIME PATIENT (test 12.7 See_Comment H [Auto mated message] code = 5964-2) The system [employer] generated this result transmitted ref erence range: 10.1 - 1 2.6 Seconds. The reference range was not used to int erpret this result as normal/abnormal . INR (test code = 6301-6) 1.1 Nor mal INR <1.1; Warfarin Therap eutic range 2.0 to 3. 0 or 2.5 to 3.5, dep ending upon the indica tions. Lab Interpretation (test Abnormal code = 13750-4) [facility] 11:29:02 Test Item Value Reference Range Interpretation Comments APTT Patient (test code 82 See_Comment H [Au tomated message] = 0703-2) The system [employer] generated this result transmitted ref erence range: 26 - 36 Seconds. The reference range was not used to int erpret this result as normal/abnormal . Lab Interpretation (test Abnormal code = 69613-0) [facility]2023-04-18 02:12:17 Test Item Value Reference Range Interpretation Comments Fibrinogen (test code = 4488207374) 124 mg/dL 167-453 L Lab Interpretation (test code = Abnormal 66794-4) [facility]2023-04-18 02:12:17 Test Item Value Reference Range Interpretation Comments Fibrinogen (test code = 1377104348) 124 mg/dL 167-453 L Lab Interpretation (test code = Abnormal 35869-8) [facility]2023-04-18 02:12:17 Test Item Value Reference Range Interpretation Comments Fibrinogen (test code = 8674479609) 124 mg/dL 167-453 L Lab Interpretation (test code = Abnormal 41045-1) [facility]2023-04-17 22:27:11 Test Item Value Reference Range Interpretation Comments Fibrinogen (test code = 3170339775) 108 mg/dL 167-453 L Lab Interpretation (test code = Abnormal 73167-3) [facility]2023-04-17 22:27:11 Test Item Value Reference Range Interpretation Comments Fibrinogen (test code = 5718236184) 108 mg/dL 167-453 L Lab Interpretation (test code = Abnormal 39766-6) [facility]2023-04-17 22:27:11 Test Item Value Reference Range Interpretation Comments Fibrinogen (test code = 3911571492) 108 mg/dL 167-453 L Lab Interpretation (test code = Abnormal 60421-3) [facility]2023-04-17 18:54:36 Test Item Value Reference Range Interpretation Comments Fibrinogen (test code = 8141992426) 110 mg/dL 167-453 L Lab Interpretation (test code = Abnormal 36182-2) [facility]2023-04-17 18:54:36 Test Item Value Reference Range Interpretation Comments Fibrinogen (test code = 5329327441) 110 mg/dL 167-453 L Lab Interpretation (test code = Abnormal 20275-1) [facility]2023-04-17 18:54:36 Test Item Value Reference Range Interpretation Comments Fibrinogen (test code = 4841203103) 110 mg/dL 167-453 L Lab Interpretation (test code = Abnormal 62166-4) [facility]2023-04-17 18:54:36 Test Item Value Reference Range Interpretation Comments Fibrinogen (test code = 6942689469) 110 mg/dL 167-453 L Lab Interpretation (test code = Abnormal 08751-8) [facility]2023-04-17 15:54:43 Test Item Value Reference Range Interpretation Comments Fibrinogen (test code = 9869921039) 118 mg/dL 167-453 L Lab Interpretation (test code = Abnormal 52030-8) [facility]2023-04-17 15:54:43 Test Item Value Reference Range Interpretation Comments Fibrinogen (test code = 8739512919) 118 mg/dL 167-453 L Lab Interpretation (test code = Abnormal 00123-1) [facility]2023-04-17 15:54:43 Test Item Value Reference Range Interpretation Comments Fibrinogen (test code = 7521709337) 118 mg/dL 167-453 L Lab Interpretation (test code = Abnormal 58541-0) [facility]2023-04-17 15:54:43 Test Item Value Reference Range Interpretation Comments Fibrinogen (test code = 3452784011) 118 mg/dL 167-453 L Lab Interpretation (test code = Abnormal 63382-6) [facility]2023-04-17 13:43:27 Test Item Value Reference Range Interpretation Comments Fibrinogen (test code = 3022618380) 119 mg/dL 167-453 L Lab Interpretation (test code = Abnormal 61398-3) [facility]2023-04-17 13:43:27 Test Item Value Reference Range Interpretation Comments Fibrinogen (test code = 7129023290) 119 mg/dL 167-453 L Lab Interpretation (test code = Abnormal 32937-3) [facility]2023-04-17 13:43:27 Test Item Value Reference Range Interpretation Comments Fibrinogen (test code = 2991249610) 119 mg/dL 167-453 L Lab Interpretation (test code = Abnormal 04260-3) [facility]2023-04-17 13:43:27 Test Item Value Reference Range Interpretation Comments Fibrinogen (test code = 3527640870) 119 mg/dL 167-453 L Lab Interpretation (test code = Abnormal 18853-1) [facility]2023-04-17 11:50:10 Test Item Value Reference Range Interpretation Comments Fibrinogen (test code = 7302457207) 97 mg/dL 167-453 LL Lab Interpretation (test code = Abnormal 66935-5) [facility]2023-04-17 11:50:10 Test Item Value Reference Range Interpretation Comments Fibrinogen (test code = 8737442217) 97 mg/dL 167-453 LL Lab Interpretation (test code = Abnormal 79631-9) [facility]2023-04-17 11:50:10 Test Item Value Reference Range Interpretation Comments Fibrinogen (test code = 0176622734) 97 mg/dL 167-453 LL Lab Interpretation (test code = Abnormal 38018-0) [facility]2023-04-17 11:50:10 Test Item Value Reference Range Interpretation Comments Fibrinogen (test code = 9233193213) 97 mg/dL 167-453 LL Lab Interpretation (test code = Abnormal 49430-0) [facility] WITH [id number] 10:13:04 Test Item Value Reference Range Interpretation Comments WBC (test code = 9.36 See_Comment [Automated 5962-2) message] The sy stem which generated this result transmitted reference range : 4.20 - 10.70 10*3/?L. The reference range was not used to interpret this result as normal/abnormal . RBC (test code = 4.03 See_Comment L [Automated 358-8) message] The sy stem which generated this [...] RDW-SD (test code = 45.3 fL 38.5-51.6 21997-5) RDW-CV (test code = 14.5 % 12.1-15.4 788-0) PLT (test code = 174 See_Comment [Automated 777-3) message] The sy stem which generated this result transmitted reference range : 150 - 328 10*3/ ?L. The reference r mitra was not used to interpret this result as normal/abnormal . MPV (test code = 8.9 fL 9.8-13.0 L 28766-2) NRBC/100 WBC (test 0.3 See_Comment [Automat ed code = 6884042064) message] The system which generated this result transmitted reference range : 0.0 - 10.0 /100 WBCs. The refer ence range was not u sed to interpret th is result as normal/abnormal . NRBC x10^3 (test code 0.03 See_Comment [Auto mated = 9456177875) message] The s ystem which generated this result transmitted reference range : 10*3/?L. The reference range was not used to interpret this result as normal/abnormal . GRAN MAT (NEUT) % 63.0 % (test code = 770-8) IMM GRAN % (test code 3.60 % = 2508012109) LYMPH % (test code = 17.5 % 736-9) MONO % (test code = 10.8 % 5905-5) EOS % (test code = 4.5 % 713-8) BASO % (test code = 0.6 % 706-2) GRAN MAT x10^3(ANC) 5.89 10*3/uL 1.99-6.95 (test code = 6329935516) IMM GRAN x10^3 (test 0.34 10*3/uL 0.00-0.06 H code = 6337140177) LYMPH x10^3 (test code 1.64 10*3/uL 1.09-3.23 = 731-0) MONO x10^3 (test code 1.01 10*3/uL 0.36-1.02 = 742-7) EOS x10^3 (test code = 0.42 10*3/uL 0.06-0.53 711-2) BASO x10^3 (test code 0.06 10*3/uL 0.01-0.09 = 704-7) REACT LYMPHS (test Rare code = 4568115718) Lab Interpretation Abnormal (test code = 47030-3) [facility] WITH [id number] 10:13:04 Test Item Value Reference Range Interpretation Comments WBC (test code = 9.36 See_Comment [Automated 1490-2) message] The sy stem which generated this result transmitted reference range : 4.20 - 10.70 10*3/?L. The reference range was not used to interpret this result as normal/abnormal . RBC (test code = 4.03 See_Comment L [Automated 9-8) message] The sy stem which generated this [...] RDW-SD (test code = 45.3 fL 38.5-51.6 79613-1) RDW-CV (test code = 14.5 % 12.1-15.4 788-0) PLT (test code = 174 See_Comment [Automated 777-3) message] The sy stem which generated this result transmitted reference range : 150 - 328 10*3/ ?L. The reference r mitra was not used to interpret this result as normal/abnormal . MPV (test code = 8.9 fL 9.8-13.0 L 43871-4) NRBC/100 WBC (test 0.3 See_Comment [Automat ed code = 7619092844) message] The system which generated this result transmitted reference range : 0.0 - 10.0 /100 WBCs. The refer ence range was not u sed to interpret th is result as normal/abnormal . NRBC x10^3 (test code 0.03 See_Comment [Auto mated = 5233180035) message] The s ystem which generated this result transmitted reference range : 10*3/?L. The reference range was not used to interpret this result as normal/abnormal . GRAN MAT (NEUT) % 63.0 % (test code = 770-8) IMM GRAN % (test code 3.60 % = 5636773796) LYMPH % (test code = 17.5 % 736-9) MONO % (test code = 10.8 % 5905-5) EOS % (test code = 4.5 % 713-8) BASO % (test code = 0.6 % 706-2) GRAN MAT x10^3(ANC) 5.89 10*3/uL 1.99-6.95 (test code = 8228870641) IMM GRAN x10^3 (test 0.34 10*3/uL 0.00-0.06 H code = 2846288770) LYMPH x10^3 (test code 1.64 10*3/uL 1.09-3.23 = 731-0) MONO x10^3 (test code 1.01 10*3/uL 0.36-1.02 = 742-7) EOS x10^3 (test code = 0.42 10*3/uL 0.06-0.53 711-2) BASO x10^3 (test code 0.06 10*3/uL 0.01-0.09 = 704-7) REACT LYMPHS (test Rare code = 5083550200) Lab Interpretation Abnormal (test code = 23032-6) [facility] WITH [id number] 10:13:04 Test Item Value Reference Range Interpretation [...] RDW-SD (test code = 45.3 fL 38.5-51.6 34545-9) RDW-CV (test code = 14.5 % 12.1-15.4 788-0) PLT (test code = 174 See_Comment [Automated 777-3) message] The sy stem which generated this result transmitted reference range : 150 - 328 10*3/ ?L. The reference r mitra was not used to interpret this result as normal/abnormal . MPV (test code = 8.9 fL 9.8-13.0 L 36981-3) NRBC/100 WBC (test 0.3 See_Comment [Automat ed code = 5291266766) message] The system which generated this result transmitted reference range : 0.0 - 10.0 /100 WBCs. The refer ence range was not u sed to interpret th is result as normal/abnormal . NRBC x10^3 (test code 0.03 See_Comment [Auto mated = 3945872619) message] The s ystem which generated this result transmitted reference range : 10*3/?L. The reference range was not used to interpret this result as normal/abnormal . GRAN MAT (NEUT) % 63.0 % (test code = 770-8) IMM GRAN % (test code 3.60 % = 2962402822) LYMPH % (test code = 17.5 % 736-9) MONO % (test code = 10.8 % 5905-5) EOS % (test code = 4.5 % 713-8) BASO % (test code = 0.6 % 706-2) GRAN MAT x10^3(ANC) 5.89 10*3/uL 1.99-6.95 (test code = 3712437617) IMM GRAN x10^3 (test 0.34 10*3/uL 0.00-0.06 H code = 3048109656) LYMPH x10^3 (test code 1.64 10*3/uL 1.09-3.23 = 731-0) MONO x10^3 (test code 1.01 10*3/uL 0.36-1.02 = 742-7) EOS x10^3 (test code = 0.42 10*3/uL 0.06-0.53 711-2) BASO x10^3 (test code 0.06 10*3/uL 0.01-0.09 = 704-7) REACT LYMPHS (test Rare code = 8314044031) Lab Interpretation Abnormal (test code = 60121-3) [facility] WITH [id number] 10:13:04 Test Item Value Reference Range Interpretation Comments WBC (test code = 9.36 See_Comment [Automated 2490-2) message] The sy stem which generated this result transmitted reference range : 4.20 - 10.70 10*3/?L. The reference range was not used to interpret this result as normal/abnormal . RBC (test code = 4.03 See_Comment L [Automated 449-8) message] The sy stem which generated this [...] RDW-SD (test code = 45.3 fL 38.5-51.6 62867-5) RDW-CV (test code = 14.5 % 12.1-15.4 788-0) PLT (test code = 174 See_Comment [Automated 777-3) message] The sy stem which generated this result transmitted reference range : 150 - 328 10*3/ ?L. The reference r mitra was not used to interpret this result as normal/abnormal . MPV (test code = 8.9 fL 9.8-13.0 L 70213-5) NRBC/100 WBC (test 0.3 See_Comment [Automat ed code = 6484592305) message] The system which generated this result transmitted reference range : 0.0 - 10.0 /100 WBCs. The refer ence range was not u sed to interpret th is result as normal/abnormal . NRBC x10^3 (test code 0.03 See_Comment [Auto mated = 2651464151) message] The s ystem which generated this result transmitted reference range : 10*3/?L. The reference range was not used to interpret this result as normal/abnormal . GRAN MAT (NEUT) % 63.0 % (test code = 770-8) IMM GRAN % (test code 3.60 % = 1813817358) LYMPH % (test code = 17.5 % 736-9) MONO % (test code = 10.8 % 5905-5) EOS % (test code = 4.5 % 713-8) BASO % (test code = 0.6 % 706-2) GRAN MAT x10^3(ANC) 5.89 10*3/uL 1.99-6.95 (test code = 9711090275) IMM GRAN x10^3 (test 0.34 10*3/uL 0.00-0.06 H code = 6822271877) LYMPH x10^3 (test code 1.64 10*3/uL 1.09-3.23 = 731-0) MONO x10^3 (test code 1.01 10*3/uL 0.36-1.02 = 742-7) EOS x10^3 (test code = 0.42 10*3/uL 0.06-0.53 711-2) BASO x10^3 (test code 0.06 10*3/uL 0.01-0.09 = 704-7) REACT LYMPHS (test Rare code = 7898986674) Lab Interpretation Abnormal (test code = 35690-1) [facility] Test Item Value Reference Range Interpretation Comments PHOSPHORUS (test code = 0863360431) 4.2 mg/dL 2.5-5.0 Lab Interpretation (test code = Normal 23852-9) [facility] 10:10:03 Test Item Value Reference Range Interpretation Comments MAGNESIUM (test code = 2599096722) 2.0 mg/dL 1.7-2.4 Lab Interpretation (test code = Normal 94352-8) [facility] (NA, K, CL, CO2, GLUCOSE, BUN, CREATININE, CA)2022-05-30 10:10:03 Test Item Value Reference Range Interpretation Comments NA (test code = 133 mmol/L 135-145 L 8158966457) K (test code = 3.9 mmol/L 3.5-5.0 7481624962) CL (test code = 103 mmol/L 98-108 2762190449) CO2 TOTAL (test code = 25 mmol/L 23-31 2965400600) AGAP (test code = 5 2-16 5823836822) BUN (test code = 22 mg/dL 7-23 1630613871) GLUCOSE (test code = 128 mg/dL 70-110 H 9785285127) CREATININE (test code = 0.87 mg/dL 0.60-1.25 2734266205) CALCIUM (test code = 8.2 mg/dL 8.6-10.6 L 6865018808) eGFR (test code = 89.8 mL/min/1.73m2 2375088129) DEWAYNE (test code = DEWAYNE) Association of [...] tests). Lab Interpretation Abnormal (test code = 50792-8) [facility] 10:10:03 Test Item Value Reference Range Interpretation Comments PHOSPHORUS (test code = 7072364290) 4.2 mg/dL 2.5-5.0 Lab Interpretation (test code = Normal 56875-5) [facility] 10:10:03 Test Item Value Reference Range Interpretation Comments MAGNESIUM (test code = 0605844850) 2.0 mg/dL 1.7-2.4 Lab Interpretation (test code = Normal 53597-9) [facility] (NA, K, CL, CO2, GLUCOSE, BUN, CREATININE, CA)2022-05-30 10:10:03 Test Item Value Reference Range Interpretation Comments NA (test code = 133 mmol/L 135-145 L 3724626258) K (test code = 3.9 mmol/L 3.5-5.0 3794184891) CL (test code = 103 mmol/L 98-108 7491522744) CO2 TOTAL (test code = 25 mmol/L 23-31 4995843702) AGAP (test code = 5 2-16 2344960271) BUN (test code = 22 mg/dL 7-23 7847258088) GLUCOSE (test code = 128 mg/dL 70-110 H 4449138492) CREATININE (test code = 0.87 mg/dL 0.60-1.25 5034774662) CALCIUM (test code = 8.2 mg/dL 8.6-10.6 L 2652910746) eGFR (test code = 89.8 mL/min/1.73m2 3266068876) DEWAYNE (test code = DEWAYNE) Association of [...] tests). Lab Interpretation Abnormal (test code = 40158-0) [facility] 10:10:03 Test Item Value Reference Range Interpretation Comments PHOSPHORUS (test code = 6333496895) 4.2 mg/dL 2.5-5.0 Lab Interpretation (test code = Normal 67542-7) [facility] 10:10:03 Test Item Value Reference Range Interpretation Comments MAGNESIUM (test code = 3697881953) 2.0 mg/dL 1.7-2.4 Lab Interpretation (test code = Normal 47259-1) [facility] (NA, K, CL, CO2, GLUCOSE, BUN, CREATININE, CA)2022-05-30 10:10:03 Test Item Value Reference Range Interpretation Comments NA (test code = 133 mmol/L 135-145 L 7167305431) K (test code = 3.9 mmol/L 3.5-5.0 9480478867) CL (test code = 103 mmol/L 98-108 6017530806) CO2 TOTAL (test code = 25 mmol/L 23-31 8892230421) AGAP (test code = 5 2-16 9712569801) BUN (test code = 22 mg/dL 7-23 2313442457) GLUCOSE (test code = 128 mg/dL 70-110 H 6407773208) CREATININE (test code = 0.87 mg/dL 0.60-1.25 4842294904) CALCIUM (test code = 8.2 mg/dL 8.6-10.6 L 4381489839) eGFR (test code = 89.8 mL/min/1.73m2 1960700253) DEWAYNE (test code = DEWAYNE) Association of [...] tests). Lab Interpretation Abnormal (test code = 21818-1) [facility] 10:10:03 Test Item Value Reference Range Interpretation Comments PHOSPHORUS (test code = 5177261083) 4.2 mg/dL 2.5-5.0 Lab Interpretation (test code = Normal 90741-1) [facility] 10:10:03 Test Item Value Reference Range Interpretation Comments MAGNESIUM (test code = 6339290773) 2.0 mg/dL 1.7-2.4 Lab Interpretation (test code = Normal 36030-3) [facility] (NA, K, CL, CO2, GLUCOSE, BUN, CREATININE, CA)2022-05-30 10:10:03 Test Item Value Reference Range Interpretation Comments NA (test code = 133 mmol/L 135-145 L 3306500592) K (test code = 3.9 mmol/L 3.5-5.0 6461534864) CL (test code = 103 mmol/L 98-108 6743465808) CO2 TOTAL (test code = 25 mmol/L 23-31 7490678748) AGAP (test code = 5 2-16 3800897554) BUN (test code = 22 mg/dL 7-23 5843373758) GLUCOSE (test code = 128 mg/dL 70-110 H 9597758551) CREATININE (test code = 0.87 mg/dL 0.60-1.25 6475263439) CALCIUM (test code = 8.2 mg/dL 8.6-10.6 L 7656077283) eGFR (test code = 89.8 mL/min/1.73m2 9175264798) DEWAYNE (test code = DEWAYNE) Association of [...] tests). Lab Interpretation Abnormal (test code = 47936-0) [facility]2023-04-17 09:52:38 Test Item Value Reference Range Interpretation Comments Fibrinogen (test code = 6439749736) 86 mg/dL 167-453 LL Lab Interpretation (test code = Abnormal 78882-1) [facility]2023-04-17 09:52:38 Test Item Value Reference Range Interpretation Comments Fibrinogen (test code = 1054147825) 86 mg/dL 167-453 LL Lab Interpretation (test code = Abnormal 59712-2) [facility]2023-04-17 09:52:38 Test Item Value Reference Range Interpretation Comments Fibrinogen (test code = 3255185947) 86 mg/dL 167-453 LL Lab Interpretation (test code = Abnormal 26166-3) [facility]2023-04-17 09:52:38 Test Item Value Reference Range Interpretation Comments Fibrinogen (test code = 7410654100) 86 mg/dL 167-453 LL Lab Interpretation (test code = Abnormal 23764-6) [place] 04566023-04-17 09:51:57 Test Item Value Reference Range Interpretation Comments APTT Patient (test code 44 See_Comment H [Au tomated message] = 3173-2) The system [employer] generated this result transmitted ref erence range: 26 - 36 Seconds. The reference range was not used to int erpret this result as normal/abnormal . Lab Interpretation (test Abnormal code = 08691-1) [place] 532353-04-17 09:51:57 Test Item Value Reference Range Interpretation Comments APTT Patient (test code 44 See_Comment H [Au tomated message] = 3173-2) The system [employer] generated this result transmitted ref erence range: 26 - 36 Seconds. The reference range was not used to int erpret this result as normal/abnormal . Lab Interpretation (test Abnormal code = 25535-1) [place] 04566023-04-17 09:51:57 Test Item Value Reference Range Interpretation Comments APTT Patient (test code 44 See_Comment H [Au tomated message] = 3173-2) The system [employer] generated this result transmitted ref erence range: 26 - 36 Seconds. The reference range was not used to int erpret this result as normal/abnormal . Lab Interpretation (test Abnormal code = 65500-9) [place] 04566023-04-17 09:51:57 Test Item Value Reference Range Interpretation Comments APTT Patient (test code 44 See_Comment H [Au tomated message] = 3173-2) The system [employer] generated this result transmitted ref erence range: 26 - 36 Seconds. The reference range was not used to int erpret this result as normal/abnormal . Lab Interpretation (test Abnormal code = 95345-4) [facility]2023-04-17 07:28:55 Test Item Value Reference Range Interpretation Comments Fibrinogen (test code = 4987693575) 73 mg/dL 167-453 LL Lab Interpretation (test code = Abnormal 62040-0) [facility]2023-04-17 07:28:55 Test Item Value Reference Range Interpretation Comments Fibrinogen (test code = 7770707780) 73 mg/dL 167-453 LL Lab Interpretation (test code = Abnormal 79766-4) [facility]2023-04-17 07:28:55 Test Item Value Reference Range Interpretation Comments Fibrinogen (test code = 1766788115) 73 mg/dL 167-453 LL Lab Interpretation (test code = Abnormal 75351-1) [facility]2023-04-17 07:28:55 Test Item Value Reference Range Interpretation Comments Fibrinogen (test code = 0834872350) 73 mg/dL 167-453 LL Lab Interpretation (test code = Abnormal 10059-0) [facility] (for use with Heparin Drip)2022-05-30 06:39:14 Test Item Value Reference Range Interpretation Comments APTT Patient (test code 44 See_Comment H [Au tomated message] = 3173-2) The system [employer] generated this result transmitted ref erence range: 26 - 36 Seconds. The reference range was not used to int erpret this result as normal/abnormal . Lab Interpretation (test Abnormal code = 73909-4) [facility] (for use with Heparin Drip)2022-05-30 06:39:14 Test Item Value Reference Range Interpretation Comments APTT Patient (test code 44 See_Comment H [Au tomated message] = 3173-2) The system [employer] generated this result transmitted ref erence range: 26 - 36 Seconds. The reference range was not used to int erpret this result as normal/abnormal . Lab Interpretation (test Abnormal code = 43645-9) [facility] (for use with Heparin Drip)2022-05-30 06:39:14 Test Item Value Reference Range Interpretation Comments APTT Patient (test code 44 See_Comment H [Au tomated message] = 3173-2) The system [employer] generated this result transmitted ref erence range: 26 - 36 Seconds. The reference range was not used to int erpret this result as normal/abnormal . Lab Interpretation (test Abnormal code = 87780-4) [facility] (for use with Heparin Drip)2022-05-30 06:39:14 Test Item Value Reference Range Interpretation Comments APTT Patient (test code 44 See_Comment H [Au tomated message] = 1543-2) The system [employer] generated this result transmitted ref erence range: 26 - 36 Seconds. The reference range was not used to int erpret this result as normal/abnormal . Lab Interpretation (test Abnormal code = 74644-9) [facility] Test Item Value Reference Range Interpretation Comments Fibrinogen (test code = 6327369339) 71 mg/dL 167-453 LL Lab Interpretation (test code = Abnormal 46067-2) [facility]2023-04-17 05:26:04 Test Item Value Reference Range Interpretation Comments Fibrinogen (test code = 7752532448) 71 mg/dL 167-453 LL Lab Interpretation (test code = Abnormal 58732-3) [facility]2023-04-17 05:26:04 Test Item Value Reference Range Interpretation Comments Fibrinogen (test code = 4073295523) 71 mg/dL 167-453 LL Lab Interpretation (test code = Abnormal 50591-8) [facility] 05:26:04 Test Item Value Reference Range Interpretation Comments Fibrinogen (test code = 4706120756) 71 mg/dL 167-453 LL Lab Interpretation (test code = Abnormal 56311-3) [facility] Test Item Value Reference Range Interpretation Comments Fibrinogen (test code = 6339447641) 98 mg/dL 167-453 LL Lab Interpretation (test code = Abnormal 36130-4) [facility] 23[facility]:05 Test Item Value Reference Range Interpretation Comments Fibrinogen (test code = 6368330198) 98 mg/dL 167-453 LL Lab Interpretation (test code = Abnormal 70519-8) [facility] 23:49:05 Test Item Value Reference Range Interpretation Comments Fibrinogen (test code = 4142898756) 98 mg/dL 167-453 LL Lab Interpretation (test code = Abnormal 11923-7) [facility]2023-04-16 23:49:05 Test Item Value Reference Range Interpretation Comments Fibrinogen (test code = 0819344880) 98 mg/dL 167-453 LL Lab Interpretation (test code = Abnormal 40164-6) [facility]2023-04-16 21:48:37 Test Item Value Reference Range Interpretation Comments Fibrinogen (test code = 0017272654) 113 mg/dL 167-453 L Lab Interpretation (test code = Abnormal 73348-8) [facility]2023-04-16 21:48:37 Test Item Value Reference Range Interpretation Comments Fibrinogen (test code = 7056117251) 113 mg/dL 167-453 L Lab Interpretation (test code = Abnormal 47405-9) [facility]2023-04-16 21:48:37 Test Item Value Reference Range Interpretation Comments Fibrinogen (test code = 3053765066) 113 mg/dL 167-453 L Lab Interpretation (test code = Abnormal 57819-4) [facility]2023-04-16 21:48:37 Test Item Value Reference Range Interpretation Comments Fibrinogen (test code = 4833425938) 113 mg/dL 167-453 L Lab Interpretation (test code = Abnormal 95757-8) [facility] METABOLIC PANEL (NA, K, CL, CO2, GLUCOSE, BUN, CREATININE, CA)2022-05-29 15:33:06 Test Item Value Reference Range Interpretation Comments NA (test code = 139 mmol/L 135-145 1327543603) K (test code = 4.2 mmol/L 3.5-5.0 0095000716) CL (test code = 104 mmol/L 98-108 5415844924) CO2 TOTAL (test code = 29 mmol/L 23-31 4048490460) AGAP (test code = 6 2-16 8829345440) BUN (test code = 25 mg/dL 7-23 H 9663911464) GLUCOSE (test code = 85 mg/dL 70-110 1850425028) CREATININE (test code = 1.02 mg/dL 0.60-1.25 5306909342) CALCIUM (test code = 8.7 mg/dL 8.6-10.6 3303608135) eGFR (test code = 74.8 mL/min/1.73m2 2358769221) DEWAYNE (test code = DEWAYNE) Association of [...] tests). Lab Interpretation Abnormal (test code = 08415-8) [facility] METABOLIC PANEL (NA, K, CL, CO2, GLUCOSE, BUN, CREATININE, CA)2022-05-29 15:33:06 Test Item Value Reference Range Interpretation Comments NA (test code = 139 mmol/L 135-145 2371701466) K (test code = 4.2 mmol/L 3.5-5.0 2970603041) CL (test code = 104 mmol/L 98-108 2262441543) CO2 TOTAL (test code = 29 mmol/L 23-31 1471379631) AGAP (test code = 6 2-16 9764039865) BUN (test code = 25 mg/dL 7-23 H 1604552593) GLUCOSE (test code = 85 mg/dL 70-110 9018238137) CREATININE (test code = 1.02 mg/dL 0.60-1.25 1878856959) CALCIUM (test code = 8.7 mg/dL 8.6-10.6 2313413481) eGFR (test code = 74.8 mL/min/1.73m2 2489747349) DEWAYNE (test code = DEWAYNE) Association of [...] tests). Lab Interpretation Abnormal (test code = 96961-5) [facility] METABOLIC PANEL (NA, K, CL, CO2, GLUCOSE, BUN, CREATININE, CA)2022-05-29 15:33:06 Test Item Value Reference Range Interpretation Comments NA (test code = 139 mmol/L 135-145 6118503483) K (test code = 4.2 mmol/L 3.5-5.0 7297984958) CL (test code = 104 mmol/L 98-108 9300353583) CO2 TOTAL (test code = 29 mmol/L 23-31 1138947966) AGAP (test code = 6 2-16 3217663586) BUN (test code = 25 mg/dL 7-23 H 4022311703) GLUCOSE (test code = 85 mg/dL 70-110 2835189465) CREATININE (test code = 1.02 mg/dL 0.60-1.25 7484565947) CALCIUM (test code = 8.7 mg/dL 8.6-10.6 9299182908) eGFR (test code = 74.8 mL/min/1.73m2 2241786400) DEWAYNE (test code = DEWAYNE) Association of [...] tests). Lab Interpretation Abnormal (test code = 38190-4) [facility] METABOLIC PANEL (NA, K, CL, CO2, GLUCOSE, BUN, CREATININE, CA)2022-05-29 15:33:06 Test Item Value Reference Range Interpretation Comments NA (test code = 139 mmol/L 135-145 3780960848) K (test code = 4.2 mmol/L 3.5-5.0 2235930237) CL (test code = 104 mmol/L 98-108 5350803379) CO2 TOTAL (test code = 29 mmol/L 23-31 3156780559) AGAP (test code = 6 2-16 4829863907) BUN (test code = 25 mg/dL 7-23 H 3727568653) GLUCOSE (test code = 85 mg/dL 70-110 0288422105) CREATININE (test code = 1.02 mg/dL 0.60-1.25 6593039178) CALCIUM (test code = 8.7 mg/dL 8.6-10.6 7398222474) eGFR (test code = 74.8 mL/min/1.73m2 8814944909) DEWAYNE (test code = DEWAYNE) Association of [...] tests). Lab Interpretation Abnormal (test code = 85280-9) [facility]:42 Test Item Value Reference Range Interpretation Comments Fibrinogen (test code = 3175800649) 368 mg/dL 167-453 Lab Interpretation (test code = Normal 99072-5) [facility] Test Item Value Reference Range Interpretation Comments Fibrinogen (test code = 6498505045) 368 mg/dL 167-453 Lab Interpretation (test code = Normal 80148-8) [facility] 15:15:42 Test Item Value Reference Range Interpretation Comments Fibrinogen (test code = 1045752203) 368 mg/dL 167-453 Lab Interpretation (test code = Normal 69472-1) [facility] 15:15:42 Test Item Value Reference Range Interpretation Comments Fibrinogen (test code = 3352132100) 368 mg/dL 167-453 Lab Interpretation (test code = Normal 26529-1) [facility] WITH [id number] 15:09:40 Test Item Value Reference Range Interpretation Comments WBC (test code = 8.27 See_Comment [Automated 6690-2) message] The sy stem which generated this result transmitted reference range : 4.20 - 10.70 10*3/?L. The reference range was not used to interpret this result as normal/abnormal . RBC (test code = 4.18 See_Comment L [Automated 589-8) message] The sy [...] RDW-SD (test code = 47.6 fL 38.5-51.6 63825-0) RDW-CV (test code = 14.7 % 12.1-15.4 788-0) PLT (test code = 252 See_Comment [Automated 777-3) message] The sy stem which generated this result transmitted reference range : 150 - 328 10*3/ ?L. The reference r mitra was not used to interpret this result as normal/abnormal . MPV (test code = 9.1 fL 9.8-13.0 L 38870-5) NRBC/100 WBC (test 0.0 See_Comment [Automat ed code = 8797220526) message] The system which generated this result transmitted reference range : 0.0 - 10.0 /100 WBCs. The refer ence range was not u sed to interpret th is result as normal/abnormal . NRBC x10^3 (test code See_Comment [Auto mated = 2367627628) message] The s ystem which generated this result transmitted reference range : 10*3/?L. The reference range was not used to interpret this result as normal/abnormal . GRAN MAT (NEUT) % 53.7 % (test code = 770-8) IMM GRAN % (test code 1.90 % = 1085478621) LYMPH % (test code = 29.6 % 736-9) MONO % (test code = 8.1 % 5905-5) EOS % (test code = 5.7 % 713-8) BASO % (test code = 1.0 % 706-2) GRAN MAT x10^3(ANC) 4.44 10*3/uL 1.99-6.95 (test code = 5520052736) IMM GRAN x10^3 (test 0.16 10*3/uL 0.00-0.06 H code = 9598928226) LYMPH x10^3 (test code 2.45 10*3/uL 1.09-3.23 = 731-0) MONO x10^3 (test code 0.67 10*3/uL 0.36-1.02 = 742-7) EOS x10^3 (test code = 0.47 10*3/uL 0.06-0.53 711-2) BASO x10^3 (test code 0.08 10*3/uL 0.01-0.09 = 704-7) Lab Interpretation Abnormal (test code = 09345-8) [facility] WITH [id number] 15:09:40 Test Item Value Reference Range Interpretation [...] RDW-SD (test code = 47.6 fL 38.5-51.6 39831-3) RDW-CV (test code = 14.7 % 12.1-15.4 788-0) PLT (test code = 252 See_Comment [Automated 777-3) message] The sy stem which generated this result transmitted reference range : 150 - 328 10*3/ ?L. The reference r mitra was not used to interpret this result as normal/abnormal . MPV (test code = 9.1 fL 9.8-13.0 L 97321-8) NRBC/100 WBC (test 0.0 See_Comment [Automat ed code = 4633663939) message] The system which generated this result transmitted reference range : 0.0 - 10.0 /100 WBCs. The refer ence range was not u sed to interpret th is result as normal/abnormal . NRBC x10^3 (test code See_Comment [Auto mated = 0219645914) message] The s ystem which generated this result transmitted reference range : 10*3/?L. The reference range was not used to interpret this result as normal/abnormal . GRAN MAT (NEUT) % 53.7 % (test code = 770-8) IMM GRAN % (test code 1.90 % = 6595246324) LYMPH % (test code = 29.6 % 736-9) MONO % (test code = 8.1 % 5905-5) EOS % (test code = 5.7 % 713-8) BASO % (test code = 1.0 % 706-2) GRAN MAT x10^3(ANC) 4.44 10*3/uL 1.99-6.95 (test code = 2024849935) IMM GRAN x10^3 (test 0.16 10*3/uL 0.00-0.06 H code = 5097748807) LYMPH x10^3 (test code 2.45 10*3/uL 1.09-3.23 = 731-0) MONO x10^3 (test code 0.67 10*3/uL 0.36-1.02 = 742-7) EOS x10^3 (test code = 0.47 10*3/uL 0.06-0.53 711-2) BASO x10^3 (test code 0.08 10*3/uL 0.01-0.09 = 704-7) Lab Interpretation Abnormal (test code = 93079-9) [facility] WITH [id number] 15:09:40 Test Item Value Reference Range Interpretation Comments WBC (test code = 8.27 See_Comment [Automated 1990-2) message] The sy stem which generated this result transmitted reference range : 4.20 - 10.70 10*3/?L. The reference range was not used to interpret this result as normal/abnormal . RBC (test code = 4.18 See_Comment L [Automated 859-8) message] The sy stem which generated this [...] RDW-SD (test code = 47.6 fL 38.5-51.6 60798-1) RDW-CV (test code = 14.7 % 12.1-15.4 788-0) PLT (test code = 252 See_Comment [Automated 777-3) message] The sy stem which generated this result transmitted reference range : 150 - 328 10*3/ ?L. The reference r mitra was not used to interpret this result as normal/abnormal . MPV (test code = 9.1 fL 9.8-13.0 L 58339-5) NRBC/100 WBC (test 0.0 See_Comment [Automat ed code = 4849880693) message] The system which generated this result transmitted reference range : 0.0 - 10.0 /100 WBCs. The refer ence range was not u sed to interpret th is result as normal/abnormal . NRBC x10^3 (test code See_Comment [Auto mated = 0725557059) message] The s ystem which generated this result transmitted reference range : 10*3/?L. The reference range was not used to interpret this result as normal/abnormal . GRAN MAT (NEUT) % 53.7 % (test code = 770-8) IMM GRAN % (test code 1.90 % = 7744723298) LYMPH % (test code = 29.6 % 736-9) MONO % (test code = 8.1 % 5905-5) EOS % (test code = 5.7 % 713-8) BASO % (test code = 1.0 % 706-2) GRAN MAT x10^3(ANC) 4.44 10*3/uL 1.99-6.95 (test code = 0731334109) IMM GRAN x10^3 (test 0.16 10*3/uL 0.00-0.06 H code = 0537637827) LYMPH x10^3 (test code 2.45 10*3/uL 1.09-3.23 = 731-0) MONO x10^3 (test code 0.67 10*3/uL 0.36-1.02 = 742-7) EOS x10^3 (test code = 0.47 10*3/uL 0.06-0.53 711-2) BASO x10^3 (test code 0.08 10*3/uL 0.01-0.09 = 704-7) Lab Interpretation Abnormal (test code = 91338-4) [facility] WITH [id number] 15:09:40 Test Item Value Reference Range Interpretation Comments WBC (test code = 8.27 See_Comment [Automated 0077-2) message] The sy stem which generated this result transmitted reference range : 4.20 - 10.70 10*3/?L. The reference range was not used to interpret this result as normal/abnormal . RBC (test code = 4.18 See_Comment L [Automated 289-8) message] The sy stem which generated this [...] RDW-SD (test code = 47.6 fL 38.5-51.6 86065-3) RDW-CV (test code = 14.7 % 12.1-15.4 788-0) PLT (test code = 252 See_Comment [Automated 127-3) message] The sy stem which generated this result transmitted reference range : 150 - 328 10*3/ ?L. The reference r mitra was not used to interpret this result as normal/abnormal . MPV (test code = 9.1 fL 9.8-13.0 L 71082-9) NRBC/100 WBC (test 0.0 See_Comment [Automat ed code = 9482445015) message] The system which generated this result transmitted reference range : 0.0 - 10.0 /100 WBCs. The refer ence range was not u sed to interpret th is result as normal/abnormal . NRBC x10^3 (test code See_Comment [Auto mated = 5875283291) message] The s ystem which generated this result transmitted reference range : 10*3/?L. The reference range was not used to interpret this result as normal/abnormal . GRAN MAT (NEUT) % 53.7 % (test code = 770-8) IMM GRAN % (test code 1.90 % = 4619337141) LYMPH % (test code = 29.6 % 736-9) MONO % (test code = 8.1 % 5905-5) EOS % (test code = 5.7 % 713-8) BASO % (test code = 1.0 % 706-2) GRAN MAT x10^3(ANC) 4.44 10*3/uL 1.99-6.95 (test code = 2068990941) IMM GRAN x10^3 (test 0.16 10*3/uL 0.00-0.06 H code = 5072534221) LYMPH x10^3 (test code 2.45 10*3/uL 1.09-3.23 = 731-0) MONO x10^3 (test code 0.67 10*3/uL 0.36-1.02 = 742-7) EOS x10^3 (test code = 0.47 10*3/uL 0.06-0.53 711-2) BASO x10^3 (test code 0.08 10*3/uL 0.01-0.09 = 704-7) Lab Interpretation Abnormal (test code = 23174-1) [facility] 11:36:15 Test Item Value Reference Range Interpretation Comments APTT Patient (test code 52 See_Comment H [Au tomated message] = 4373-2) The system [employer] generated this result transmitted ref erence range: 26 - 36 Seconds. The reference range was not used to int erpret this result as normal/abnormal . Lab Interpretation (test Abnormal code = 15438-9) [facility] (for use with Heparin Infusion)2022-05-29 11:36:15 Test Item Value Reference Range Interpretation Comments APTT Patient (test code 52 See_Comment H [Au tomated message] = 3173-2) The system [employer] generated this result transmitted ref erence range: 26 - 36 Seconds. The reference range was not used to int erpret this result as normal/abnormal . Lab Interpretation (test Abnormal code = 41702-0) [facility] (for use with Heparin Infusion)2022-05-29 11:36:15 Test Item Value Reference Range Interpretation Comments APTT Patient (test code 52 See_Comment H [Au tomated message] = 3173-2) The system [employer] generated this result transmitted ref erence range: 26 - 36 Seconds. The reference range was not used to int erpret this result as normal/abnormal . Lab Interpretation (test Abnormal code = 06950-5) [facility] (for use with Heparin Infusion)2022-05-29 11:36:15 Test Item Value Reference Range Interpretation Comments APTT Patient (test code 52 See_Comment H [Au tomated message] = 3173-2) The system [employer] generated this result transmitted ref erence range: 26 - 36 Seconds. The reference range was not used to int erpret this result as normal/abnormal . Lab Interpretation (test Abnormal code = 01906-4) [facility] METABOLIC PANEL (NA, K, CL, CO2, GLUCOSE, BUN, CREATININE, CA)2022-05-29 11:35:55 Test Item Value Reference Range Interpretation Comments NA (test code = 136 mmol/L 135-145 7999026061) K (test code = 4.9 mmol/L 3.5-5.0 Slight 2042117918) hemolysis CL (test code = 106 mmol/L 98-108 4954419752) CO2 TOTAL (test code 28 mmol/L 23-31 = 9977426729) AGAP (test code = 2 2-16 7257724058) BUN (test code = 26 mg/dL 7-23 H Slight 3702594840) hemolysis GLUCOSE (test code = 88 mg/dL 70-110 7846913770) CREATININE (test code 0.86 mg/dL 0.60-1.25 = 8585071371) CALCIUM (test code = 8.4 mg/dL 8.6-10.6 L 1321983886) eGFR (test code = 91.0 mL/min/1.73m2 9309830480) DEWAYNE (test code = DEWAYNE) Association of [...] tests). Lab Interpretation Abnormal (test code = 66058-4) [facility] 11:35:55 Test Item Value Reference Range Interpretation Comments MAGNESIUM (test code = 4491808730) 2.4 mg/dL 1.7-2.4 Lab Interpretation (test code = Normal 40459-3) [facility] (NA, K, CL, CO2, GLUCOSE, BUN, CREATININE, CA)2022-05-29 11:35:55 Test Item Value Reference Range Interpretation Comments NA (test code = 136 mmol/L 135-145 7366608009) K (test code = 4.9 mmol/L 3.5-5.0 Slight 6221750471) hemolysis CL (test code = 106 mmol/L 98-108 9838766487) CO2 TOTAL (test code 28 mmol/L 23-31 = 0810681299) AGAP (test code = 2 2-16 9296235092) BUN (test code = 26 mg/dL 7-23 H Slight 1221577763) hemolysis GLUCOSE (test code = 88 mg/dL 70-110 5949832414) CREATININE (test code 0.86 mg/dL 0.60-1.25 = 2054014863) CALCIUM (test code = 8.4 mg/dL 8.6-10.6 L 0201399851) eGFR (test code = 91.0 mL/min/1.73m2 4717564734) DEWAYNE (test code = DEWAYNE) Association of [...] tests). Lab Interpretation Abnormal (test code = 96061-4) [facility] 11:35:55 Test Item Value Reference Range Interpretation Comments MAGNESIUM (test code = 0819775765) 2.4 mg/dL 1.7-2.4 Lab Interpretation (test code = Normal 17593-2) [facility] (NA, K, CL, CO2, GLUCOSE, BUN, CREATININE, CA)2022-05-29 11:35:55 Test Item Value Reference Range Interpretation Comments NA (test code = 136 mmol/L 135-145 8523065684) K (test code = 4.9 mmol/L 3.5-5.0 Slight 1940697330) hemolysis CL (test code = 106 mmol/L 98-108 4568556210) CO2 TOTAL (test code 28 mmol/L 23-31 = 8206982256) AGAP (test code = 2 2-16 0443415938) BUN (test code = 26 mg/dL 7-23 H Slight 0756732262) hemolysis GLUCOSE (test code = 88 mg/dL 70-110 8701874228) CREATININE (test code 0.86 mg/dL 0.60-1.25 = 8646521687) CALCIUM (test code = 8.4 mg/dL 8.6-10.6 L 1967314601) eGFR (test code = 91.0 mL/min/1.73m2 4776163315) DEWAYNE (test code = DEWAYNE) Association of [...] tests). Lab Interpretation Abnormal (test code = 23307-6) [facility] 11:35:55 Test Item Value Reference Range Interpretation Comments MAGNESIUM (test code = 0803190080) 2.4 mg/dL 1.7-2.4 Lab Interpretation (test code = Normal 65725-1) [facility] (NA, K, CL, CO2, GLUCOSE, BUN, CREATININE, CA)2022-05-29 11:35:55 Test Item Value Reference Range Interpretation Comments NA (test code = 136 mmol/L 135-145 3541403810) K (test code = 4.9 mmol/L 3.5-5.0 Slight 5515170323) hemolysis CL (test code = 106 mmol/L 98-108 9818845555) CO2 TOTAL (test code 28 mmol/L 23-31 = 9543356553) AGAP (test code = 2 2-16 3555277636) BUN (test code = 26 mg/dL 7-23 H Slight 2416047135) hemolysis GLUCOSE (test code = 88 mg/dL 70-110 0369787325) CREATININE (test code 0.86 mg/dL 0.60-1.25 = 6620820252) CALCIUM (test code = 8.4 mg/dL 8.6-10.6 L 7004173978) eGFR (test code = 91.0 mL/min/1.73m2 1974566017) DEWAYNE (test code = DEWAYNE) Association of [...] tests). Lab Interpretation Abnormal (test code = 90058-2) [facility] 11:35:55 Test Item Value Reference Range Interpretation Comments MAGNESIUM (test code = 5716634093) 2.4 mg/dL 1.7-2.4 Lab Interpretation (test code = Normal 19425-7) [facility] [id number] 11:28:31 Test Item Value Reference Range Interpretation Comments WBC (test code = 6690-2) 7.81 See_Comment [A utomated message] The system [employer] generated this result transmit elizabeth reference range : 4.20 - 10.70 10*3/?L. The reference range was not used to interpret this result as normal/abnormal . RBC (test code = 789-8) 4.04 See_Comment L [Au tomated message] The system [employer] generated this result transmit elizabeth reference range [...] 252 See_Comment [Au tomated message] The system [employer] generated this result transmit elizabeth reference range : 150 - 328 10*3/?L. The reference range was not used to interpret this result as normal/abnormal . MPV (test code = 9.6 fL 9.8-13.0 L 16439-7) RDW-CV (test code = 14.6 % 12.1-15.4 788-0) RDW-SD (test code = 46.5 fL 38.5-51.6 09911-0) NRBC x10^3 (test code = See_Comment [Au tomated message] 2369297450) The system [employer] generated this result transmit elizabeth reference range : 10*3/?L. The reference range was not used to interpret this result as normal/abnormal . NRBC/100 WBC (test code 0.0 See_Comment [Au tomated message] = 7484676772) The system [facility] generated this result transmit elizabeth reference range : 0.0 - 10.0 /100 WBC s. The reference r mitra was not used to interpret this result as normal/abnormal . IPF % (test code = 4748974102) Lab Interpretation (test Abnormal code = 81762-2) [facility] Without [id number] 11:28:31 Test Item Value Reference Range Interpretation Comments WBC (test code = 6690-2) 7.81 See_Comment [A utomated message] The system [employer] generated this result transmit elizabeth reference range : 4.20 - 10.70 10*3/?L. The reference range was not used to interpret this result as normal/abnormal . RBC (test code = 789-8) 4.04 See_Comment L [Au tomated message] The system [employer] generated this result transmit elizabeth reference range [...] 252 See_Comment [Au tomated message] The system [employer] generated this result transmit elizabeth reference range : 150 - 328 10*3/?L. The reference range was not used to interpret this result as normal/abnormal . MPV (test code = 9.6 fL 9.8-13.0 L 99862-7) RDW-CV (test code = 14.6 % 12.1-15.4 788-0) RDW-SD (test code = 46.5 fL 38.5-51.6 09609-1) NRBC x10^3 (test code = See_Comment [Au tomated message] 6325007864) The system [employer] generated this result transmit elizabeth reference range : 10*3/?L. The reference range was not used to interpret this result as normal/abnormal . NRBC/100 WBC (test code 0.0 See_Comment [Au tomated message] = 8254946563) The system [employer] generated this result transmit elizabeth reference range : 0.0 - 10.0 /100 WBC s. The reference r mitra was not used to interpret this result as normal/abnormal . IPF % (test code = 4370948315) Lab Interpretation (test Abnormal code = 35526-5) [facility] Without [id number] 11:28:31 Test Item Value Reference Range Interpretation Comments WBC (test code = 6690-2) 7.81 See_Comment [A utomated message] The system [employer] generated this result transmit elizabeth reference range : 4.20 - 10.70 10*3/?L. The reference range was not used to interpret this result as normal/abnormal . RBC (test code = 789-8) 4.04 See_Comment L [Au tomated message] The system [facility] generated this result transmit elizabeth reference [...] 252 See_Comment [Au tomated message] The system [facility] generated this result transmit elizabeth reference range : 150 - 328 10*3/?L. The reference range was not used to interpret this result as normal/abnormal . MPV (test code = 9.6 fL 9.8-13.0 L 83115-1) RDW-CV (test code = 14.6 % 12.1-15.4 788-0) RDW-SD (test code = 46.5 fL 38.5-51.6 34147-2) NRBC x10^3 (test code = See_Comment [Au tomated message] 8568431306) The system [facility] generated this result transmit elizabeth reference range : 10*3/?L. The reference range was not used to interpret this result as normal/abnormal . NRBC/100 WBC (test code 0.0 See_Comment [Au tomated message] = 1666613856) The system [facility] generated this result transmit elizabeth reference range : 0.0 - 10.0 /100 WBC s. The reference r mitra was not used to interpret this result as normal/abnormal . IPF % (test code = 0984986501) Lab Interpretation (test Abnormal code = 56525-8) [facility] Without [id number] 11:28:31 Test Item Value Reference Range Interpretation Comments WBC (test code = 6690-2) 7.81 See_Comment [A utomated message] The system [employer] generated this result transmit elizabeth reference range : 4.20 - 10.70 10*3/?L. The reference range was not used to interpret this result as normal/abnormal . RBC (test code = 789-8) 4.04 See_Comment L [Au tomated message] The system [employer] generated this result transmit elizabeth reference range [...] 252 See_Comment [Au tomated message] The system [employer] generated this result transmit elizabeth reference range : 150 - 328 10*3/?L. The reference range was not used to interpret this result as normal/abnormal . MPV (test code = 9.6 fL 9.8-13.0 L 57540-1) RDW-CV (test code = 14.6 % 12.1-15.4 788-0) RDW-SD (test code = 46.5 fL 38.5-51.6 58265-4) NRBC x10^3 (test code = See_Comment [Au tomated message] 5753122852) The system [employer] generated this result transmit elizabeth reference range : 10*3/?L. The reference range was not used to interpret this result as normal/abnormal . NRBC/100 WBC (test code 0.0 See_Comment [Au tomated message] = 1292484007) The system [facility] generated this result transmit elizabeth reference range : 0.0 - 10.0 /100 WBC s. The reference r mitra was not used to interpret this result as normal/abnormal . 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 Mutation Tested: F2 c.32437S>A (Z00560H). Clinical Sensitivity for Venous Thrombosis: Approximately 10%. Methodology: Polymerase chain reaction and fluorescence monitoring Limitations: The performance of this assay has not been evaluated with samples from pediatric patients. Counseling and informed consent are recommended for genetic testing. References: OMIM: 172416 [email or web address].[email or web address].gov/c ondition/prothrombin-thro mbophilia [facility] [id number] 18:45:15 Test Item Value Reference Range Interpretation Comments FACTOR 5 LEIDEN Heterozygous Normal (test code = 1041659431) DEWAYNE (test code = Phenotype Characteristics: DEWAYNE) [...] the Factor 5 Leiden mutation is c.1601G>A (p.Gan315Mae). Methodology: Polymerase chain reaction and fluorescence monitoring. Limitations: Rare Factor V mutations (P7048H, P0592M, and W5978A) and any additional SNPs in the probe binding region may interfere with the target detection and yield an INVALID result. The performance of this assay has not been evaluated with samples from pediatric patients. Counseling and informed consent are recommended for genetic testing. References: OMIM: 884609 [email or web address]://ghr.nlm.nih.gov/co ndition/iafsfd-s-qmrhsu-th rombophilia [facility] I52724H [id number] 18:45:15 Test Item Value Reference Range Interpretation Comments Factor 2 F73415H Heterozygous Normal Mutation (test code = 1927835154) DEWAYNE (test code = Phenotype DEWAYNE) Characteristics: [...] further increased for homozygotes. Mutation Tested: F2 c.96637N>A (A54453D). Clinical Sensitivity for Venous Thrombosis: Approximately 10%. Methodology: Polymerase chain reaction and fluorescence monitoring Limitations: The performance of this assay has not been evaluated with samples from pediatric patients. Counseling and informed consent are recommended for genetic testing. References: OMIM: 706530 [email or web address].nlm.nih.gov/c ondition/prothrombin-thro mbophilia [facility] [id number] 18:45:15 Test Item Value Reference Range Interpretation Comments FACTOR 5 LEIDEN Heterozygous Normal (test code = 8701327466) DEWAYNE (test code = Phenotype Characteristics: DEWAYNE) [...] the Factor 5 Leiden mutation is c.1601G>A (p.Mxo789Jbw). Methodology: Polymerase chain reaction and fluorescence monitoring. Limitations: Rare Factor V mutations (G5265N, S4592O, and T2231E) and any additional SNPs in the probe binding region may interfere with the target detection and yield an INVALID result. The performance of this assay has not been evaluated with samples from pediatric patients. Counseling and informed consent are recommended for genetic testing. References: OMIM: 829929 [email or web address]://ghr.nlm.nih.gov/co ndition/plrwfg-q-kwoery-th rombophilia [facility] [id number] [id number] 18:45:15 Test Item Value Reference Range Interpretation Comments Factor 2 X83778V Heterozygous Normal Mutation (test code = 0481204931) DEWAYNE (test code = Phenotype DEWAYNE) Characteristics: [...] further increased for homozygotes. Mutation Tested: F2 c.15915N>A (Y02388J). Clinical Sensitivity for Venous Thrombosis: Approximately 10%. Methodology: Polymerase chain reaction and fluorescence monitoring Limitations: The performance of this assay has not been evaluated with samples from pediatric patients. Counseling and informed consent are recommended for genetic testing. References: OMIM: 791811 [email or web address].nlm.nih.gov/c ondition/prothrombin-thro mbophilia [facility] [id number] 18:45:15 Test Item Value Reference Range Interpretation Comments FACTOR 5 LEIDEN Heterozygous Normal (test code = 9487694053) DEWAYNE (test code = Phenotype Characteristics: DEWAYNE) [...] the Factor 5 Leiden mutation is c.1601G>A (p.Apj492Ank). Methodology: Polymerase chain reaction and fluorescence monitoring. Limitations: Rare Factor V mutations (F8437H, X9383U, and P6538L) and any additional SNPs in the probe binding region may interfere with the target detection and yield an INVALID result. The performance of this assay has not been evaluated with samples from pediatric patients. Counseling and informed consent are recommended for genetic testing. References: OMIM: 105261 https://r.nlm.nih.gov/co ndition/urfdaw-v-dyjxex- rombophilia [facility] [id number] 18:45:15 Test Item Value Reference Range Interpretation Comments Factor 2 K29831B Heterozygous Normal Mutation (test code = 0419381089) DEWAYNE (test code = Phenotype DEWAYNE) Characteristics: [...] further increased for homozygotes. Mutation Tested: F2 c.10261F>A ([id number]). Clinical Sensitivity for Venous Thrombosis: Approximately 10%. Methodology: Polymerase chain reaction and fluorescence monitoring Limitations: The performance of this assay has not been evaluated with samples from pediatric patients. Counseling and informed consent are recommended for genetic testing. References: OMIM: 234231 https://r.nlm.nih.gov/c ondition/prothrombin-thro mbophilia [facility] PBHVAS3674-11-01 18:45:15 Test Item Value Reference Range Interpretation Comments FACTOR 5 LEIDEN Heterozygous Normal (test code = 8731311040) DEWAYNE (test code = Phenotype Characteristics: DEWAYNE) [...] the Factor 5 Leiden mutation is c.1601G>A (p.Glz278Zar). Methodology: Polymerase chain reaction and fluorescence monitoring. Limitations: Rare Factor V mutations (F9685V, V0796H, and G7129B) and any additional SNPs in the probe binding region may interfere with the target detection and yield an INVALID result. The performance of this assay has not been evaluated with samples from pediatric patients. Counseling and informed consent are recommended for genetic testing. References: OMIM: 725142 https://ghr.nlm.nih.gov/co ndition/euefsz-a-jqlxay-[facility] METABOLIC PANEL (NA, K, CL, CO2, GLUCOSE, BUN, CREATININE, CA)2022-05-28 09:52:42 Test Item Value Reference Range Interpretation Comments NA (test code = 137 mmol/L 135-145 8210037110) K (test code = 3.8 mmol/L 3.5-5.0 1320875364) CL (test code = 103 mmol/L 98-108 4992348519) CO2 TOTAL (test code = 27 mmol/L 23-31 6958989755) AGAP (test code = 7 2-16 7370212850) BUN (test code = 27 mg/dL 7-23 H 7560692444) GLUCOSE (test code = 105 mg/dL 70-110 2812878621) CREATININE (test code = 0.84 mg/dL 0.60-1.25 2230886342) CALCIUM (test code = 8.5 mg/dL 8.6-10.6 L 2141823518) eGFR (test code = 93.5 mL/min/1.73m2 7064379976) DEWAYNE (test code = DEWAYNE) Association of [...] tests). Lab Interpretation Abnormal (test code = 42333-8) [facility] METABOLIC PANEL (NA, K, CL, CO2, GLUCOSE, BUN, CREATININE, CA)2022-05-28 09:52:42 Test Item Value Reference Range Interpretation Comments NA (test code = 137 mmol/L 135-145 9532978832) K (test code = 3.8 mmol/L 3.5-5.0 8900364648) CL (test code = 103 mmol/L 98-108 4094784275) CO2 TOTAL (test code = 27 mmol/L 23-31 2528777130) AGAP (test code = 7 2-16 5702234928) BUN (test code = 27 mg/dL 7-23 H 9245177455) GLUCOSE (test code = 105 mg/dL 70-110 7689973302) CREATININE (test code = 0.84 mg/dL 0.60-1.25 4873331535) CALCIUM (test code = 8.5 mg/dL 8.6-10.6 L 7166242802) eGFR (test code = 93.5 mL/min/1.73m2 5092876501) DEWAYNE (test code = DEWAYNE) Association of [...] tests). Lab Interpretation Abnormal (test code = 47166-3) [facility] (NA, K, CL, CO2, GLUCOSE, BUN, CREATININE, CA)2022-05-28 09:52:42 Test Item Value Reference Range Interpretation Comments NA (test code = 137 mmol/L 135-145 0430473709) K (test code = 3.8 mmol/L 3.5-5.0 3983353270) CL (test code = 103 mmol/L 98-108 3372190059) CO2 TOTAL (test code = 27 mmol/L 23-31 6979233701) AGAP (test code = 7 2-16 5302403042) BUN (test code = 27 mg/dL 7-23 H 0837499044) GLUCOSE (test code = 105 mg/dL 70-110 6817937953) CREATININE (test code = 0.84 mg/dL 0.60-1.25 1189095354) CALCIUM (test code = 8.5 mg/dL 8.6-10.6 L 0793065394) eGFR (test code = 93.5 mL/min/1.73m2 3032071392) DEWAYNE (test code = DEWAYNE) Association of [...] tests). Lab Interpretation Abnormal (test code = 50261-8) [facility] (NA, K, CL, CO2, GLUCOSE, BUN, CREATININE, CA)2022-05-28 09:52:42 Test Item Value Reference Range Interpretation Comments NA (test code = 137 mmol/L 135-145 5286384201) K (test code = 3.8 mmol/L 3.5-5.0 2008079248) CL (test code = 103 mmol/L 98-108 2441106446) CO2 TOTAL (test code = 27 mmol/L 23-31 0879123382) AGAP (test code = 7 2-16 0555699850) BUN (test code = 27 mg/dL 7-23 H 4722295741) GLUCOSE (test code = 105 mg/dL 70-110 6443521751) CREATININE (test code = 0.84 mg/dL 0.60-1.25 1033993007) CALCIUM (test code = 8.5 mg/dL 8.6-10.6 L 3060875985) eGFR (test code = 93.5 mL/min/1.73m2 3321411407) DEWAYNE (test code = DEWAYNE) Association of [...] tests). Lab Interpretation Abnormal (test code = 92471-1) [facility] WITH [id number] 09:29:20 Test Item Value Reference Range Interpretation Comments WBC (test code = 8.34 See_Comment [Automated 1892-2) message] The sy stem which generated this result transmitted reference range : 4.20 - 10.70 10*3/?L. The reference range was not used to interpret this result as normal/abnormal . RBC (test code = 4.08 See_Comment L [Automated 690-8) message] The sy stem which generated this [...] RDW-SD (test code = 44.7 fL 38.5-51.6 03883-2) RDW-CV (test code = 14.5 % 12.1-15.4 788-0) PLT (test code = 199 See_Comment [Automated 777-3) message] The sy stem which generated this result transmitted reference range : 150 - 328 10*3/ ?L. The reference r mitra was not used to interpret this result as normal/abnormal . MPV (test code = 9.3 fL 9.8-13.0 L 43140-5) NRBC/100 WBC (test 0.0 See_Comment [Automat ed code = 9381741281) message] The system which generated this result transmitted reference range : 0.0 - 10.0 /100 WBCs. The refer ence range was not u sed to interpret th is result as normal/abnormal . NRBC x10^3 (test code See_Comment [Auto mated = 6139003775) message] The s ystem which generated this result transmitted reference range : 10*3/?L. The reference range was not used to interpret this result as normal/abnormal . GRAN MAT (NEUT) % 56.1 % (test code = 770-8) IMM GRAN % (test code 1.20 % = 6293258611) LYMPH % (test code = 30.8 % 736-9) MONO % (test code = 7.6 % 5905-5) EOS % (test code = 3.7 % 713-8) BASO % (test code = 0.6 % 706-2) GRAN MAT x10^3(ANC) 4.68 10*3/uL 1.99-6.95 (test code = 4431764019) IMM GRAN x10^3 (test 0.10 10*3/uL 0.00-0.06 H code = 4449643913) LYMPH x10^3 (test code 2.57 10*3/uL 1.09-3.23 = 731-0) MONO x10^3 (test code 0.63 10*3/uL 0.36-1.02 = 742-7) EOS x10^3 (test code = 0.31 10*3/uL 0.06-0.53 711-2) BASO x10^3 (test code 0.05 10*3/uL 0.01-0.09 = 704-7) Lab Interpretation Abnormal (test code = 14181-1) [facility] WITH [id number] 09:29:20 Test Item Value Reference Range Interpretation Comments WBC (test code = 8.34 See_Comment [Automated 2435-2) message] The sy stem which generated this result transmitted reference range : 4.20 - 10.70 10*3/?L. The reference range was not used to interpret this result as normal/abnormal . RBC (test code = 4.08 See_Comment L [Automated 731-8) message] The sy stem which generated this [...] RDW-SD (test code = 44.7 fL 38.5-51.6 66408-6) RDW-CV (test code = 14.5 % 12.1-15.4 788-0) PLT (test code = 199 See_Comment [Automated 997-3) message] The sy stem which generated this result transmitted reference range : 150 - 328 10*3/ ?L. The reference r mitra was not used to interpret this result as normal/abnormal . MPV (test code = 9.3 fL 9.8-13.0 L 92708-6) NRBC/100 WBC (test 0.0 See_Comment [Automat ed code = 4163774490) message] The system which generated this result transmitted reference range : 0.0 - 10.0 /100 WBCs. The refer ence range was not u sed to interpret th is result as normal/abnormal . NRBC x10^3 (test code See_Comment [Auto mated = 9903686359) message] The s ystem which generated this result transmitted reference range : 10*3/?L. The reference range was not used to interpret this result as normal/abnormal . GRAN MAT (NEUT) % 56.1 % (test code = 770-8) IMM GRAN % (test code 1.20 % = 2739144518) LYMPH % (test code = 30.8 % 736-9) MONO % (test code = 7.6 % 5905-5) EOS % (test code = 3.7 % 713-8) BASO % (test code = 0.6 % 706-2) GRAN MAT x10^3(ANC) 4.68 10*3/uL 1.99-6.95 (test code = 6908017137) IMM GRAN x10^3 (test 0.10 10*3/uL 0.00-0.06 H code = 5774703261) LYMPH x10^3 (test code 2.57 10*3/uL 1.09-3.23 = 731-0) MONO x10^3 (test code 0.63 10*3/uL 0.36-1.02 = 742-7) EOS x10^3 (test code = 0.31 10*3/uL 0.06-0.53 711-2) BASO x10^3 (test code 0.05 10*3/uL 0.01-0.09 = 704-7) Lab Interpretation Abnormal (test code = 04123-0) [facility] WITH [id number] 09:29:20 Test Item Value Reference Range Interpretation [...] RDW-SD (test code = 44.7 fL 38.5-51.6 21796-5) RDW-CV (test code = 14.5 % 12.1-15.4 788-0) PLT (test code = 199 See_Comment [Automated 777-3) message] The sy stem which generated this result transmitted reference range : 150 - 328 10*3/ ?L. The reference r mitra was not used to interpret this result as normal/abnormal . MPV (test code = 9.3 fL 9.8-13.0 L 43343-6) NRBC/100 WBC (test 0.0 See_Comment [Automat ed code = 9577312042) message] The system which generated this result transmitted reference range : 0.0 - 10.0 /100 WBCs. The refer ence range was not u sed to interpret th is result as normal/abnormal . NRBC x10^3 (test code See_Comment [Auto mated = 7981024614) message] The s ystem which generated this result transmitted reference range : 10*3/?L. The reference range was not used to interpret this result as normal/abnormal . GRAN MAT (NEUT) % 56.1 % (test code = 770-8) IMM GRAN % (test code 1.20 % = 5990292827) LYMPH % (test code = 30.8 % 736-9) MONO % (test code = 7.6 % 5905-5) EOS % (test code = 3.7 % 713-8) BASO % (test code = 0.6 % 706-2) GRAN MAT x10^3(ANC) 4.68 10*3/uL 1.99-6.95 (test code = 7398986555) IMM GRAN x10^3 (test 0.10 10*3/uL 0.00-0.06 H code = 1815552984) LYMPH x10^3 (test code 2.57 10*3/uL 1.09-3.23 = 731-0) MONO x10^3 (test code 0.63 10*3/uL 0.36-1.02 = 742-7) EOS x10^3 (test code = 0.31 10*3/uL 0.06-0.53 711-2) BASO x10^3 (test code 0.05 10*3/uL 0.01-0.09 = 704-7) Lab Interpretation Abnormal (test code = 05173-7) [facility] WITH [id number] 09:29:20 Test Item Value Reference Range Interpretation Comments WBC (test code = 8.34 See_Comment [Automated 6690-2) message] The sy stem which generated this result transmitted reference range : 4.20 - 10.70 10*3/?L. The reference range was not used to interpret this result as normal/abnormal . RBC (test code = 4.08 See_Comment L [Automated 529-8) message] The sy stem which generated this [...] RDW-SD (test code = 44.7 fL 38.5-51.6 16578-6) RDW-CV (test code = 14.5 % 12.1-15.4 788-0) PLT (test code = 199 See_Comment [Automated 777-3) message] The sy stem which generated this result transmitted reference range : 150 - 328 10*3/ ?L. The reference r mitra was not used to interpret this result as normal/abnormal . MPV (test code = 9.3 fL 9.8-13.0 L 32626-3) NRBC/100 WBC (test 0.0 See_Comment [Automat ed code = 5692071378) message] The system which generated this result transmitted reference range : 0.0 - 10.0 /100 WBCs. The refer ence range was not u sed to interpret th is result as normal/abnormal . NRBC x10^3 (test code See_Comment [Auto mated = 1928695051) message] The s ystem which generated this result transmitted reference range : 10*3/?L. The reference range was not used to interpret this result as normal/abnormal . GRAN MAT (NEUT) % 56.1 % (test code = 770-8) IMM GRAN % (test code 1.20 % = 8430247619) LYMPH % (test code = 30.8 % 736-9) MONO % (test code = 7.6 % 5905-5) EOS % (test code = 3.7 % 713-8) BASO % (test code = 0.6 % 706-2) GRAN MAT x10^3(ANC) 4.68 10*3/uL 1.99-6.95 (test code = 1924018351) IMM GRAN x10^3 (test 0.10 10*3/uL 0.00-0.06 H code = 6580205256) LYMPH x10^3 (test code 2.57 10*3/uL 1.09-3.23 = 731-0) MONO x10^3 (test code 0.63 10*3/uL 0.36-1.02 = 742-7) EOS x10^3 (test code = 0.31 10*3/uL 0.06-0.53 711-2) BASO x10^3 (test code 0.05 10*3/uL 0.01-0.09 = 704-7) Lab Interpretation Abnormal (test code = 56775-7) [facility] [id number] 04:20:00 Test Item Value Reference Interpretation Comments Range Levetiracetam 4.1 ug/mL 10.0-40.0 A This test was developed and ([facility]), S (test its perfor fritz code = KEPPRA.L) characteris ticsdetermined by [facility]. It has not been cleared orappro mannie by the Food and Drug Administration. Performed at: [facility] [address] [place], [place] [id number] Di shahid: Miriam Sevilla MD, Ph one: [phone] Drug Screen,Aonej7552-08-18 20:40:00 Test Item Value Reference Range Interpretation [...] Negative Negative code = UPROP) Comprehensive Metabolic Msjeq6654-74-09 19:50:00 Test Item Value Reference Range Interpretation [...] 47 U/L 46-116 N = ALP) Troponin [id number] 19:50:00 Test Item Value Reference Range Interpretation [...] 99th percentile in serialmeasureme nts. Prothrombin Time [id number] 19:50:00 Test Item Value Reference Range Interpretation Comments Prothrombin Time (test code = 10.9 Seconds 9.8-13.4 N PT) INR (test code = INR) 1.0 ratio 0.6-1.2 N Partial Thromboplastin Ilbd7124-15-39 19:50:00 Test Item Value Reference Range Interpretation Comments Partial Thromboplastin Time 20.00 Seconds 24.39-37.25 L (test code = PTT) Complete Blood Count Auto Umpx0470-97-91 19:50:00 Test Item Value Reference Range Interpretation [...] code = NRBCP) 0 % B-Type Natriuretic Kfaybfr7401-72-58 19:50:00 Test Item Value Reference Range Interpretation Comments B-Type Natriuretic Peptide (test 30.2 pg/mL 0.0-99.9 N code = BNP) SARS-CoV-2 (COVID-19) RNA [Presence] in Respiratory specimen by COOPER with probe fwylydjcb7430-02-19 03:31:41 Test Item Value Reference Range Interpretation Comments SARS-CoV-2 (COVID-19) RNA Not detected Not-Detected [Presence] in Respiratory specimen by COOPER with probe detection (test code = 19512-7) [facility] Metabolic Niwnf9279-59-48 20:19:00 Test Item Value Reference Range Interpretation [...] into account, if the informationis provided. If e race is not provided , and the patient isAfrican-Ameri can, multiply by 1.2 12. If sex is not prov ided, and thepatient is female, multipl y by 0.742. Results for patients <18 ye ars ofage have not been validated by e MDRD study and shoul d be interpretedwith caution.eGFR Re sult Interpretation: eGFR > or = 60 is in t he Normal RangeeGF R < 60 may mean kidney diseaseeGFR < 1 5 may mean kidney failureRange s recommended by the National Kidney Foundation,http ://nkd ep.nih.gov CT HEAD OR BRAIN WO FJVJVIRM4412-14-54 18:19:40Location code: R 15HISTORY: Intracranial hemorrhageCOMPARISON: None.TECHNIQUE: [...] Unremarkable nonenhanced CT scan of the brain.Ammonia, Awsgb1181-83-40 12:35:00 Test Item Value Reference Range Interpretation Comments Ammonia (test code = NH3) 25.0 umol/L 11.0-35.0 N US DUPLX EXT VEINS COMPRS, [id number] 15:35:40ULTRASOUND: Bilateral lower extremity venous duplex sonography.History: [...] An IVC filter is in place.Impression:Unremarkable exam.Glycosylated Mpcerfjyel8732-06-38 10:36:00 Test Item Value Reference Range Interpretation Comments HBA1c (test code = HBA1C) 5.1 % 4.8-5.9 N RPR, Nara0270-76-70 12:10:00 Test Item Value Reference Range Interpretation Comments RPR (test code = RPR) Non-Reactive Non-Reactive N Thyroid Stimulating Hormone (TSH)2016-12-24 06:02:00 Test Item Value Reference Range Interpretation Comments TSH (test code = TSH) 1.03 mIU/mL 0.270-4.200 N Lipid Ovxrtjd2663-06-82 05:53:00 Test Item Value Reference Range Interpretation Comments Cholesterol (test 205 mg/dL 0-200 H code = CHOL) Triglycerides (test 69 mg/dL 9-200 N code = TRIG) HDL (test code = 68 mg/dL 40-60 H HDL) Chol/HDL (test code 3.0 Ratio 0.0-5.0 N = CHOLPHDL) LDL, Calculated 123 0-130 N (NOTE)RISK O F HEART (test code = LDLC) DISEASEPu blished by Irish Heart AssociationAnal yte Optimal Boderli ne Increased RiskC HOL <200 200-239 >240TRI G <150 150-199 >200HD L Male: >60 <40HDL Fema le: >60 <50LDL <100 13 0-159 >160LDL NEAR OP TIMAL IS 100-129 VLDL (test code = 14 mg/dL 5-40 N VLDL) LDL/HDL (test code = 2 LDLPHDL) Comprehensive Metabolic Ipicx6104-36-17 18:42:00 Test Item Value Reference Range Interpretation [...] National Kidney Foundation,http ://nkd ep.nih.gov CBC with Tjsgmpafhdwc6859-19-31 17:59:00 Test Item Value Reference Range Interpretation [...] code = ALYMPH) 1.4 K/cumm 0.5-4.6 N [place] Abs (test code = AMONO) 0.9 K/cumm 0.0-1.2 N Eos Abs (test code = AEOS) 0.01 K/cumm 0.00-0.74 N Baso Abs (test code = ABASO) 0.0 K/cumm 0.00-0.21 N FXSKONVBJSGB4058-71-81 18:46:00 Test Item Value Reference Range Interpretation Comments B/C Ratio (test code = B/C Ratio) 18 6-25 [facility]HYZLUBKQVPCR2138-43-48 18:46:00 Test Item Value Reference Range Interpretation Comments A/G Ratio (test code = A/G Ratio) 1.1 0.7-1.6 [facility] HospitalVrgneomQRCGJJIKENES5536-40-80 18:46:00 Test Item Value Reference Range Interpretation Comments Globulin (test code = Globulin) 3.3 2.0-4.0 [facility]SmhhlxqGZBEJJJTKWAU2192-28-77 18:46:00 Test Item Value Reference Range Interpretation Comments eGFR (test code = eGFR) 99 [facility] HospitalIarnraxYKXOSDRHULXC6493-46-61 18:46:00 Test Item Value Reference Range Interpretation Comments Calcium Lvl (test code = Calcium Lvl) 9.0 8.5-10.5 [facility] HospitalRxcayrlLMBQHWIVDFRH4974-59-88 18:46:00 Test Item Value Reference Range Interpretation Comments Chloride Lvl (test code = Chloride Lvl) 106 95-109 [facility] HospitalFkydrzmYFWHXMQTNZSH7143-46-74 18:46:00 Test Item Value Reference Range Interpretation Comments Creatinine Lvl (test code = Creatinine 0.9 0.5-1.4 Lvl) [facility] HospitalEpdvdheXBBURSPCAAAA0610-73-94 18:46:00 Test Item Value Reference Range Interpretation Comments Potassium Lvl (test code = Potassium 4.2 3.5-5.1 Lvl) [facility] HospitalPaqducbXAABZMVQARLN2115-75-26 18:46:00 Test Item Value Reference Range Interpretation Comments Sodium Lvl (test code = Sodium Lvl) 139 135-145 [facility] HospitalVxlaqjjMYVWEYAXWIMN9725-10-19 18:46:00 Test Item Value Reference Range Interpretation Comments CO2 (test code = CO2) 24 24-32 [facility] HospitalFhhlwzkOCAIWNUVLEMR7818-97-33 18:46:00 Test Item Value Reference Range Interpretation Comments BUN (test code = BUN) 16 7-22 [facility] HospitalKgnfidgKXZHZDAOZSWS1397-96-91 18:46:00 Test Item Value Reference Range Interpretation Comments Glucose Lvl (test code = Glucose Lvl) 141 70-99 [facility] HospitalNkgbzefQTYXGWGUJBDW1484-30-33 18:46:00 Test Item Value Reference Range Interpretation Comments Albumin Lvl (test code = Albumin Lvl) 3.6 3.5-5.0 [facility] HospitalAhxpcclGWXXXBQASGJU6327-46-08 18:46:00 Test Item Value Reference Range Interpretation Comments Alk Phos (test code = Alk Phos) 65 39-136 [facility] HospitalHpozsqxZVODDWSDLWJV1856-50-93 18:46:00 Test Item Value Reference Range Interpretation Comments Bili Total (test code = Bili Total) 0.3 0.2-1.3 [facility] HospitalIznnsqlZRYWNRWZKYKM9880-57-85 18:46:00 Test Item Value Reference Range Interpretation Comments ALT (test code = ALT) 100 See_Comment [Auto mated message] The system which ge nerated this result transmit elizabeth reference range : <=65. The reference range was not used to interpr et this result as lukas l/abnormal. [facility] HospitalSwxwcmzFXXARLYFFBON0467-95-41 18:46:00 Test Item Value Reference Range Interpretation Comments AST (test code = AST) 53 See_Comment [Auto mated message] The system which ge nerated this result transmit elizabeth reference range : <=37. The reference range was not used to interpr et this result as lukas l/abnormal. [facility] HospitalNyufxdbVCWCAZFCKTOF5616-18-07 18:46:00 Test Item Value Reference Range Interpretation Comments Total Protein (test code = Total 6.9 6.4-8.4 Protein) [facility] AreaThqponnJUFZTKFBTZ1230-51-69 18:46:00 Test Item Value Reference Range Interpretation Comments Eosinophils (test code = 4.2 See_Comment [A utomated message] The Eosinophils) system which ge nerated this result tra nsmitted reference range : <=4.0. The reference r mitra was not used to int erpret this result as normal/abnormal . [facility]ZjyxxfoISTJQWSWBY0689-51-27 18:46:00 Test Item Value Reference Range Interpretation Comments Segs (test code = Segs) 56.4 45.0-75.0 [facility] SouthAzbdvqxRZOTFBFIQC2581-25-86 18:46:00 Test Item Value Reference Range Interpretation Comments Monocytes (test code = Monocytes) 10.3 2.0-12.0 [facility] SouthFfwdsnxTPSXXMKYOP0463-71-26 18:46:00 Test Item Value Reference Range Interpretation Comments Lymphocytes (test code = Lymphocytes) 28.0 20.0-40.0 [facility] SouthLcieollPQJGSKNVYB1299-59-67 18:46:00 Test Item Value Reference Range Interpretation Comments Monocytes # (test code 0.5 See_Comment [Aut omated message] The = Monocytes #) system which generated this result tra nsmitted reference range : <=0.8. The reference r mitra was not used to int erpret this result as normal/abnormal . [facility] SouthYzcpmemQDVMADHSAS4899-09-78 18:46:00 Test Item Value Reference Range Interpretation Comments Basophils (test code = 1.1 See_Comment [Aut omated message] The Basophils) system which ge nerated this result tra nsmitted reference range : <=1.0. The reference r mitra was not used to int erpret this result as normal/abnormal . [facility] SouthRbktaazARVVTEOJVX1408-70-60 18:46:00 Test Item Value Reference Range Interpretation Comments Lymphocytes # (test code = Lymphocytes 1.5 1.0-5.5 #) [facility] SouthCxspsgqOFTSDJQGUS0832-95-80 18:46:00 Test Item Value Reference Range Interpretation Comments Segs-Bands # (test code = Segs-Bands #) 2.9 1.5-8.1 [facility] SouthBknsbtwUOCTYOGLMJ4167-45-84 18:46:00 Test Item Value Reference Range Interpretation Comments Eosinophils # (test code 0.2 See_Comment [A utomated message] The = Eosinophils #) system whic h generated this result tra nsmitted reference range : <=0.5. The reference r mitra was not used to int erpret this result as normal/abnormal . [facility] SouthPsldhovEKSEDGSDQO9146-97-04 18:46:00 Test Item Value Reference Range Interpretation Comments Basophils # (test code 0.1 See_Comment [Aut omated message] The = Basophils #) system which generated this result tra nsmitted reference range : <=0.2. The reference r mitra was not used to int erpret this result as normal/abnormal . [facility] SouthEdqoolaSFNDMBDLPM4365-88-80 18:46:00 Test Item Value Reference Range Interpretation Comments PT (test code = PT) 11.2 s 12.0-14.7 [facility] SouthVsmbqaiKMEMZNADOV2231-08-35 18:46:00 Test Item Value Reference Range Interpretation Comments INR (test code = INR) 0.82 0.85-1.17 [facility] SouthGdxpdnyRKONONBSGB2381-32-59 18:46:00 Test Item Value Reference Range Interpretation Comments PTT (test code = PTT) 28.6 s 22.9-35.8 [facility] SouthAstttdfZUSZEMJZOJ7337-01-11 18:46:00 Test Item Value Reference Range Interpretation Comments MPV (test code = MPV) 8.1 7.4-10.4 [facility] SouthAwkqngfTNXEWUZNML9312-14-21 18:46:00 Test Item Value Reference Range Interpretation Comments Platelet (test code = Platelet) 301 133-450 [facility] SouthXuaxsilPQSKFGGOFA2194-03-93 18:46:00 Test Item Value Reference Range Interpretation Comments RDW (test code = RDW) 14.5 11.5-14.5 [facility] SouthEpuqwmgNUVWZWRMSP9529-81-14 18:46:00 Test Item Value Reference Range Interpretation Comments RBC (test code = RBC) 4.84 4.70-6.10 [facility] SouthUxszqxyTPLAUVEFTJ3049-04-27 18:46:00 Test Item Value Reference Range Interpretation Comments Hgb (test code = Hgb) 14.4 14.0-18.0 [facility] SouthYqlfjqiWGXMEGICEA4039-78-55 18:46:00 Test Item Value Reference Range Interpretation Comments WBC (test code = WBC) 5.2 3.7-10.4 [facility] SouthVpxnqxjNFGNCPTLKM2899-99-85 18:46:00 Test Item Value Reference Range Interpretation Comments MCH (test code = MCH) 29.8 pg 27.0-31.0 [facility] SouthAtpuvtyYTUACRPKVH5679-21-10 18:46:00 Test Item Value Reference Range Interpretation Comments MCV (test code = MCV) 92.0 80.0-94.0 [facility] AreaElfdeufVHEXBAXRPD7646-01-47 18:46:00 Test Item Value Reference Range Interpretation Comments Hct (test code = Hct) 44.5 42.0-54.0 [facility]qpoCTPSIICEFR4561-04-16 18:46:00 Test Item Value Reference Range Interpretation Comments MCHC (test code = MCHC) 32.4 32.0-36.0 [facility]GtpoydxFCWZICBYFP6109-27-01 18:46:00 Test Item Value Reference Range Interpretation Comments [employer] [place]-Hep C Ab (test Negative *NA*(07/22/14 code = [employer] [place]-Hep C 1:46 PM) Ab) [facility] AND [id number] 18:46:00 Test Item Value Reference Range Interpretation Comments UA Urobilinogen (test code = UA <=1.0 mg/dL 0.1-1.0 Urobilinogen) [facility] AND [id number] 18:46:00 Test Item Value Reference Range Interpretation Comments UA Sq Epi (test code = UA Sq Epi) None Seen [facility] AND [id number] 18:46:00 Test Item Value Reference Range Interpretation Comments UA Leuk Est (test Negative (07/22/14 1:46 code = UA Leuk Est) PM) [facility] AND [id number] 18:46:00 Test Item Value Reference Range Interpretation Comments UA Nitrite (test code Negative (07/22/14 1:46 = UA Nitrite) PM) [facility] AND [id number] 18:46:00 Test Item Value Reference Range Interpretation Comments UA Blood (test code = Negative (07/22/14 1:46 UA Blood) PM) [facility] [id number] 18:46:00 Test Item Value Reference Range Interpretation Comments UA Ketones (test code = UA Negative mg/dL Ketones) [facility] AND [id number] 18:46:00 Test Item Value Reference Range Interpretation Comments UA Bili (test code = Negative *NA*(07/22/14 UA Bili) 1:46 PM) [facility] [id number] 18:46:00 Test Item Value Reference Range Interpretation Comments UA Bacteria (test code = UA Occasional /HPF Bacteria) [facility] AND [id number] 18:46:00 Test Item Value Reference Range Interpretation Comments UA RBC (test code = no gt See_Comment [Automa elizabeth message] The UA RBC) system which ge nerated this result transmit elizabeth reference range : <=2. The reference range was not used to interpr et this result as lukas l/abnormal. [facility] AND [id number] 18:46:00 Test Item Value Reference Range Interpretation Comments UA WBC (test code = 1 See_Comment [Automa elizabeth message] The UA WBC) system which ge nerated this result transmit elizabeth reference range : <=5. The reference range was not used to interpr et this result as lukas l/abnormal. [facility] AND [id number] 18:46:00 Test Item Value Reference Range Interpretation Comments UA Glucose (test code = UA Glucose) 30 mg/dL [facility] AND [id number] 18:46:00 Test Item Value Reference Range Interpretation Comments UA Protein (test code = UA Negative mg/dL Protein) [facility] AND [id number] 18:46:00 Test Item Value Reference Range Interpretation Comments UA pH (test code = UA pH) 6.5 5.0-8.0 [facility] AND [id number] 18:46:00 Test Item Value Reference Range Interpretation Comments UA Turbidity (test code = Clear (07/22/14 1:46 UA Turbidity) PM) [facility] AND [id number] 18:46:00 Test Item Value Reference Range Interpretation Comments UA Spec Grav (test code = UA Spec Grav) 1.010 [facility] AND [id number] 18:46:00 Test Item Value Reference Range Interpretation Comments UA Color (test code = Light Yellow UA Color) *NA*(07/22/14 1:46 PM) [facility] [id number] 18:46:00 Test Item Value Reference Range Interpretation Comments Magnesium Lvl (test code = Magnesium 1.8 1.8-2.4 Lvl) [facility] CenterDjowhorMCIMSEMDAFSB3785-17-19 18:46:00 Test Item Value Reference Range Interpretation Comments AGAP (test code = AGAP) 13.2 10.0-20.0 [facility]SxnvvmsMYSUQMBZITVV6164-40-11 18:46:00 Test Item Value Reference Range Interpretation Comments B/C Ratio (test code = B/C Ratio) 18 6-25 [facility] HospitalEqbcchpPCAIXRTBJLXG6101-11-49 18:46:00 Test Item Value Reference Range Interpretation Comments A/G Ratio (test code = A/G Ratio) 1.1 0.7-1.6 [facility] HospitalDsixgsqJQOMXXGAGOIB3283-45-85 18:46:00 Test Item Value Reference Range Interpretation Comments Globulin (test code = Globulin) 3.3 2.0-4.0 [facility] HospitalEdxvanjZFZIWRGKWALT0720-55-65 18:46:00 Test Item Value Reference Range Interpretation Comments eGFR (test code = eGFR) 99 [facility] HospitalTwbebtpRWTJVQAOKSIO5015-81-99 18:46:00 Test Item Value Reference Range Interpretation Comments Calcium Lvl (test code = Calcium Lvl) 9.0 8.5-10.5 [facility] HospitalDcncxgwHAJHNWDEUVER7443-89-90 18:46:00 Test Item Value Reference Range Interpretation Comments Chloride Lvl (test code = Chloride Lvl) 106 95-109 [facility] HospitalLaffcgoIKKVYHFUIPGB0782-75-21 18:46:00 Test Item Value Reference Range Interpretation Comments Creatinine Lvl (test code = Creatinine 0.9 0.5-1.4 Lvl) [facility] HospitalFulpkwbRNDENPTAVWHG7503-72-68 18:46:00 Test Item Value Reference Range Interpretation Comments Potassium Lvl (test code = Potassium 4.2 3.5-5.1 Lvl) [facility] HospitalGjubepdUXFWNJUMRZNU5392-69-11 18:46:00 Test Item Value Reference Range Interpretation Comments Sodium Lvl (test code = Sodium Lvl) 139 135-145 [facility] HospitalIexgsgoSYQYOWOHVDXK8370-21-33 18:46:00 Test Item Value Reference Range Interpretation Comments CO2 (test code = CO2) 24 24-32 [facility] HospitalHjltciwDQSUIZDVBWFZ1161-82-75 18:46:00 Test Item Value Reference Range Interpretation Comments BUN (test code = BUN) 16 7-22 [facility] HospitalPbwcrdePNEZTKSFIYIL3010-96-75 18:46:00 Test Item Value Reference Range Interpretation Comments Glucose Lvl (test code = Glucose Lvl) 141 70-99 [facility] HospitalMbmabmvABQOFAZGJEKB5938-70-66 18:46:00 Test Item Value Reference Range Interpretation Comments Albumin Lvl (test code = Albumin Lvl) 3.6 3.5-5.0 [facility] HospitalBcigxdcNLVOKZOFMVYV5509-32-85 18:46:00 Test Item Value Reference Range Interpretation Comments Alk Phos (test code = Alk Phos) 65 39-136 [facility] HospitalObqymvxUJELRMXDXLJB2142-44-62 18:46:00 Test Item Value Reference Range Interpretation Comments Bili Total (test code = Bili Total) 0.3 0.2-1.3 [facility] HospitalNralfdzWEJGEJFCJDEZ2045-07-28 18:46:00 Test Item Value Reference Range Interpretation Comments ALT (test code = ALT) 100 See_Comment [Auto mated message] The system which ge nerated this result transmit elizabeth reference range : <=65. The reference range was not used to interpr et this result as lukas l/abnormal. [facility] HospitalXrooizmFMEDDBUJKNCQ7778-43-65 18:46:00 Test Item Value Reference Range Interpretation Comments AST (test code = AST) 53 See_Comment [Auto mated message] The system which ge nerated this result transmit elizabeth reference range : <=37. The reference range was not used to interpr et this result as lukas l/abnormal. [facility] HospitalIfkrsrgVCWYBLFBXTPP7290-95-98 18:46:00 Test Item Value Reference Range Interpretation Comments Total Protein (test code = Total 6.9 6.4-8.4 Protein) [facility]GsshdoeUBZKQBWMOD8074-67-31 18:46:00 Test Item Value Reference Range Interpretation Comments Eosinophils (test code = 4.2 See_Comment [A utomated message] The Eosinophils) system which ge nerated this result tra nsmitted reference range : <=4.0. The reference r mitra was not used to int erpret this result as normal/abnormal . [facility] SouthXpmevmyNIXCHEYWTH5753-07-51 18:46:00 Test Item Value Reference Range Interpretation Comments Segs (test code = Segs) 56.4 45.0-75.0 [facility] SouthGlhntipLGOUUZSTST0099-00-26 18:46:00 Test Item Value Reference Range Interpretation Comments Monocytes (test code = Monocytes) 10.3 2.0-12.0 [facility] SouthIbgaakgWQJHODOICT6108-13-81 18:46:00 Test Item Value Reference Range Interpretation Comments Lymphocytes (test code = Lymphocytes) 28.0 20.0-40.0 [facility] SouthCaremnqMDRKXWGXKN6586-20-63 18:46:00 Test Item Value Reference Range Interpretation Comments Monocytes # (test code 0.5 See_Comment [Aut omated message] The = Monocytes #) system which generated this result tra nsmitted reference range : <=0.8. The reference r mitra was not used to int erpret this result as normal/abnormal . [facility] SouthBoujtdrSQIJMASDZQ2456-72-91 18:46:00 Test Item Value Reference Range Interpretation Comments Basophils (test code = 1.1 See_Comment [Aut omated message] The Basophils) system which ge nerated this result tra nsmitted reference range : <=1.0. The reference r mitra was not used to int erpret this result as normal/abnormal . [facility] SouthKthcgqzUYQPJVAMCN0493-62-57 18:46:00 Test Item Value Reference Range Interpretation Comments Lymphocytes # (test code = Lymphocytes 1.5 1.0-5.5 #) [facility] SouthPjkekmtJJPOACPAAY6236-01-34 18:46:00 Test Item Value Reference Range Interpretation Comments Segs-Bands # (test code = Segs-Bands #) 2.9 1.5-8.1 [facility] SouthSggtgchDERBIQKVGS4012-79-02 18:46:00 Test Item Value Reference Range Interpretation Comments Eosinophils # (test code 0.2 See_Comment [A utomated message] The = Eosinophils #) system whic h generated this result tra nsmitted reference range : <=0.5. The reference r mitra was not used to int erpret this result as normal/abnormal . [facility] SouthQftxtwgVLVAYGVCXW5561-97-92 18:46:00 Test Item Value Reference Range Interpretation Comments Basophils # (test code 0.1 See_Comment [Aut omated message] The = Basophils #) system which generated this result tra nsmitted reference range : <=0.2. The reference r mitra was not used to int erpret this result as normal/abnormal . [facility] SouthBsykskgSPEWQKVBFB4808-38-29 18:46:00 Test Item Value Reference Range Interpretation Comments PT (test code = PT) 11.2 s 12.0-14.7 [facility] SouthOuusdpeEJRXFNJNKK5850-46-16 18:46:00 Test Item Value Reference Range Interpretation Comments INR (test code = INR) 0.82 0.85-1.17 [facility] SouthQfxlmrgLLPMAIDCMZ6036-63-82 18:46:00 Test Item Value Reference Range Interpretation Comments PTT (test code = PTT) 28.6 s 22.9-35.8 [facility] SouthRjxjwqfKSLQHFBHMM3108-07-93 18:46:00 Test Item Value Reference Range Interpretation Comments MPV (test code = MPV) 8.1 7.4-10.4 [facility] SouthBurtjebLRSUTDDBVF7539-20-35 18:46:00 Test Item Value Reference Range Interpretation Comments Platelet (test code = Platelet) 301 133-450 [facility] SouthCidvxggQQGKMWMMWN7947-39-82 18:46:00 Test Item Value Reference Range Interpretation Comments RDW (test code = RDW) 14.5 11.5-14.5 [facility] SouthVcajacnPHRAFCXCDU3548-79-32 18:46:00 Test Item Value Reference Range Interpretation Comments RBC (test code = RBC) 4.84 4.70-6.10 [facility] SouthEsniemyMQWOBHMQWC7146-13-56 18:46:00 Test Item Value Reference Range Interpretation Comments Hgb (test code = Hgb) 14.4 14.0-18.0 [facility] SouthDwxfietHPTIDNEOHL3123-29-32 18:46:00 Test Item Value Reference Range Interpretation Comments WBC (test code = WBC) 5.2 3.7-10.4 [facility] SouthLlltuunEDSAQNFNVE4900-93-21 18:46:00 Test Item Value Reference Range Interpretation Comments MCH (test code = MCH) 29.8 pg 27.0-31.0 [facility] SouthNcybxmlAVPSKLBLIV8735-90-07 18:46:00 Test Item Value Reference Range Interpretation Comments MCV (test code = MCV) 92.0 80.0-94.0 [facility] SouthRbavydvHNRWCOSEEU4416-36-44 18:46:00 Test Item Value Reference Range Interpretation Comments Hct (test code = Hct) 44.5 42.0-54.0 [facility] SouthKsiiifcJKHIMZICQR2700-67-31 18:46:00 Test Item Value Reference Range Interpretation Comments MCHC (test code = MCHC) 32.4 32.0-36.0 [facility] AreaHgkfpgmSNGPVQQXJY2594-27-10 18:46:00 Test Item Value Reference Range Interpretation Comments [employer] [place]-Hep C Ab (test Negative *NA*(07/22/14 code = [employer] [place]-Hep C 1:46 PM) Ab) [facility] AND [id number] 18:46:00 Test Item Value Reference Range Interpretation Comments UA Urobilinogen (test code = UA <=1.0 mg/dL 0.1-1.0 Urobilinogen) [facility] AND [id number] 18:46:00 Test Item Value Reference Range Interpretation Comments UA Sq Epi (test code = UA Sq Epi) None Seen [facility] AND [id number] 18:46:00 Test Item Value Reference Range Interpretation Comments UA Leuk Est (test Negative (07/22/14 1:46 code = UA Leuk Est) PM) [facility] AND [id number] 18:46:00 Test Item Value Reference Range Interpretation Comments UA Nitrite (test code Negative (07/22/14 1:46 = UA Nitrite) PM) [facility] AND [id number] 18:46:00 Test Item Value Reference Range Interpretation Comments UA Blood (test code = Negative (07/22/14 1:46 UA Blood) PM) [facility] AND [id number] 18:46:00 Test Item Value Reference Range Interpretation Comments UA Ketones (test code = UA Negative mg/dL Ketones) [facility] AND [id number] 18:46:00 Test Item Value Reference Range Interpretation Comments UA Bili (test code = Negative *NA*(07/22/14 UA Bili) 1:46 PM) [facility] AND [id number] 18:46:00 Test Item Value Reference Range Interpretation Comments UA Bacteria (test code = UA Occasional /HPF Bacteria) [facility] AND [id number] 18:46:00 Test Item Value Reference Range Interpretation Comments UA RBC (test code = no gt See_Comment [Automa elizabeth message] The UA RBC) system which ge nerated this result transmit elizabeth reference range : <=2. The reference range was not used to interpr et this result as lukas l/abnormal. [facility] AND [id number] 18:46:00 Test Item Value Reference Range Interpretation Comments UA WBC (test code = 1 See_Comment [Automa elizabeth message] The UA WBC) system which ge nerated this result transmit elizabeth reference range : <=5. The reference range was not used to interpr et this result as lukas l/abnormal. [facility] AND [id number] 18:46:00 Test Item Value Reference Range Interpretation Comments UA Glucose (test code = UA Glucose) 30 mg/dL [facility] AND [id number] 18:46:00 Test Item Value Reference Range Interpretation Comments UA Protein (test code = UA Negative mg/dL Protein) [facility] AND [id number] 18:46:00 Test Item Value Reference Range Interpretation Comments UA pH (test code = UA pH) 6.5 5.0-8.0 [facility] AND [id number] 18:46:00 Test Item Value Reference Range Interpretation Comments UA Turbidity (test code = Clear (07/22/14 1:46 UA Turbidity) PM) [facility] AND [id number] 18:46:00 Test Item Value Reference Range Interpretation Comments UA Spec Grav (test code = UA Spec Grav) 1.010 [facility] AND [id number] 18:46:00 Test Item Value Reference Range Interpretation Comments UA Color (test code = Light Yellow UA Color) *NA*(07/22/14 1:46 PM) [facility] [id number] 18:46:00 Test Item Value Reference Range Interpretation Comments Magnesium Lvl (test code = Magnesium 1.8 1.8-2.4 Lvl) [facility]MrqimtuQHKLSQTTOGTV0096-06-48 18:46:00 Test Item Value Reference Range Interpretation Comments AGAP (test code = AGAP) 13.2 10.0-20.0 [facility] HospitalEkexdvwDAEBFJAKZJNK0037-89-13 18:46:00 Test Item Value Reference Range Interpretation Comments B/C Ratio (test code = B/C Ratio) 18 6-25 [facility] HospitalPzmdrwkEOAOJIZNEDYA6463-88-89 18:46:00 Test Item Value Reference Range Interpretation Comments A/G Ratio (test code = A/G Ratio) 1.1 0.7-1.6 [facility] HospitalLxbdkwoSSNRWCCEWTTZ0048-97-50 18:46:00 Test Item Value Reference Range Interpretation Comments Globulin (test code = Globulin) 3.3 2.0-4.0 [facility] HospitalQpdycspIFRNMWYQGINN5545-13-86 18:46:00 Test Item Value Reference Range Interpretation Comments eGFR (test code = eGFR) 99 [facility] HospitalCacsakvFBBOPRWIQMJJ3542-30-84 18:46:00 Test Item Value Reference Range Interpretation Comments Calcium Lvl (test code = Calcium Lvl) 9.0 8.5-10.5 [facility] HospitalAybguwoYRJFXNNDYESJ9760-99-40 18:46:00 Test Item Value Reference Range Interpretation Comments Chloride Lvl (test code = Chloride Lvl) 106 95-109 [facility] HospitalPaktjkmPFMYWWTUUCSC6971-90-61 18:46:00 Test Item Value Reference Range Interpretation Comments Creatinine Lvl (test code = Creatinine 0.9 0.5-1.4 Lvl) [facility] HospitalXuvalbcYXZMNESNAZWT9709-28-69 18:46:00 Test Item Value Reference Range Interpretation Comments Potassium Lvl (test code = Potassium 4.2 3.5-5.1 Lvl) [facility] HospitalKywxgqdXDGRCSBTGJDR1776-73-61 18:46:00 Test Item Value Reference Range Interpretation Comments Sodium Lvl (test code = Sodium Lvl) 139 135-145 [facility] HospitalJmjfothWPRZDEYSSCSC9972-28-62 18:46:00 Test Item Value Reference Range Interpretation Comments CO2 (test code = CO2) 24 24-32 [facility] HospitalKfsxxpwAERDABCWXYQQ4589-49-40 18:46:00 Test Item Value Reference Range Interpretation Comments BUN (test code = BUN) 16 7-22 [facility] HospitalNhnnrrcIQGUGKSCHPUF1870-15-85 18:46:00 Test Item Value Reference Range Interpretation Comments Glucose Lvl (test code = Glucose Lvl) 141 70-99 [facility] HospitalTdjdjbhRZUVWIQPUAWC3487-94-43 18:46:00 Test Item Value Reference Range Interpretation Comments Albumin Lvl (test code = Albumin Lvl) 3.6 3.5-5.0 [facility] HospitalMjtzjyiCDOAGQEEWUYR5740-61-83 18:46:00 Test Item Value Reference Range Interpretation Comments Alk Phos (test code = Alk Phos) 65 39-136 [facility] HospitalDafjktpETRQGQUSAOMZ8884-83-67 18:46:00 Test Item Value Reference Range Interpretation Comments Bili Total (test code = Bili Total) 0.3 0.2-1.3 [facility] HospitalNxxtqrbTEYMLBWZHPCA2724-38-82 18:46:00 Test Item Value Reference Range Interpretation Comments ALT (test code = ALT) 100 See_Comment [Auto mated message] The system which ge nerated this result transmit elizabeth reference range : <=65. The reference range was not used to interpr et this result as lukas l/abnormal. [facility] HospitalEfslnfcRABOMBOBHJME4546-67-83 18:46:00 Test Item Value Reference Range Interpretation Comments AST (test code = AST) 53 See_Comment [Auto mated message] The system which ge nerated this result transmit elizabeth reference range : <=37. The reference range was not used to interpr et this result as lukas l/abnormal. [facility] HospitalYvxxrvtGCEMHGLGYHOE3702-83-68 18:46:00 Test Item Value Reference Range Interpretation Comments Total Protein (test code = Total 6.9 6.4-8.4 Protein) [facility]FgwmhpgTMPOZXHJKT1645-23-17 18:46:00 Test Item Value Reference Range Interpretation Comments Eosinophils (test code = 4.2 See_Comment [A utomated message] The Eosinophils) system which ge nerated this result tra nsmitted reference range : <=4.0. The reference r mitra was not used to int erpret this result as normal/abnormal . [facility] SouthZrlgdsxFLQNYNUGVV6751-94-21 18:46:00 Test Item Value Reference Range Interpretation Comments Segs (test code = Segs) 56.4 45.0-75.0 [facility] SouthNxnfdmvUOCHZFJAKA0984-15-18 18:46:00 Test Item Value Reference Range Interpretation Comments Monocytes (test code = Monocytes) 10.3 2.0-12.0 [facility] SouthAsngwmdTDWRWOREUG1487-12-25 18:46:00 Test Item Value Reference Range Interpretation Comments Lymphocytes (test code = Lymphocytes) 28.0 20.0-40.0 [facility] SouthRuqadbuEOVQUIYTQD1123-90-32 18:46:00 Test Item Value Reference Range Interpretation Comments Monocytes # (test code 0.5 See_Comment [Aut omated message] The = Monocytes #) system which generated this result tra nsmitted reference range : <=0.8. The reference r mitra was not used to int erpret this result as normal/abnormal . [facility] SouthAorsnlcUASEMOQZGW8459-36-90 18:46:00 Test Item Value Reference Range Interpretation Comments Basophils (test code = 1.1 See_Comment [Aut omated message] The Basophils) system which ge nerated this result tra nsmitted reference range : <=1.0. The reference r mitra was not used to int erpret this result as normal/abnormal . [facility] SouthJjrtmtlVWCZZTUYYB2187-80-62 18:46:00 Test Item Value Reference Range Interpretation Comments Lymphocytes # (test code = Lymphocytes 1.5 1.0-5.5 #) [facility] SouthFjdjuwpVCOBRNKBAQ1784-26-62 18:46:00 Test Item Value Reference Range Interpretation Comments Segs-Bands # (test code = Segs-Bands #) 2.9 1.5-8.1 [facility] SouthYqhvufhGSSHUTXJXA4052-32-31 18:46:00 Test Item Value Reference Range Interpretation Comments Eosinophils # (test code 0.2 See_Comment [A utomated message] The = Eosinophils #) system whic h generated this result tra nsmitted reference range : <=0.5. The reference r mitra was not used to int erpret this result as normal/abnormal . [facility] SouthFlhaoimUAPAPXTFMI9385-68-51 18:46:00 Test Item Value Reference Range Interpretation Comments Basophils # (test code 0.1 See_Comment [Aut omated message] The = Basophils #) system which generated this result tra nsmitted reference range : <=0.2. The reference r mitra was not used to int erpret this result as normal/abnormal . [facility] SouthTxszxphVQCZRXNJBR4995-53-63 18:46:00 Test Item Value Reference Range Interpretation Comments PT (test code = PT) 11.2 s 12.0-14.7 [facility] SouthOgjtqbxDZKOWKGPGH8477-43-51 18:46:00 Test Item Value Reference Range Interpretation Comments INR (test code = INR) 0.82 0.85-1.17 [facility] SouthZrnuaynZXTDSOFNUO5299-76-20 18:46:00 Test Item Value Reference Range Interpretation Comments PTT (test code = PTT) 28.6 s 22.9-35.8 [facility] SouthBrjoddiVEFQHAFDFT7372-57-43 18:46:00 Test Item Value Reference Range Interpretation Comments MPV (test code = MPV) 8.1 7.4-10.4 [facility] SouthHecqdokVSPUUBHGSC3583-77-09 18:46:00 Test Item Value Reference Range Interpretation Comments Platelet (test code = Platelet) 301 133-450 [facility] SouthXnguezuSYGHGCMYYY7730-41-11 18:46:00 Test Item Value Reference Range Interpretation Comments RDW (test code = RDW) 14.5 11.5-14.5 [facility]JvsnjzeGDMZESKNCQ7455-95-56 18:46:00 Test Item Value Reference Range Interpretation Comments RBC (test code = RBC) 4.84 4.70-6.10 [facility] HospitalCeszbevZVHRSYMSWN7721-40-69 18:46:00 Test Item Value Reference Range Interpretation Comments Hgb (test code = Hgb) 14.4 14.0-18.0 [facility] SouthYjdbqmqGTEAQTVECT0921-22-13 18:46:00 Test Item Value Reference Range Interpretation Comments WBC (test code = WBC) 5.2 3.7-10.4 [facility] SouthWgokfeeKBZPWYFRVI3874-36-44 18:46:00 Test Item Value Reference Range Interpretation Comments MCH (test code = MCH) 29.8 pg 27.0-31.0 [facility] SouthLtrknkhWPCVXQPJFQ0539-51-57 18:46:00 Test Item Value Reference Range Interpretation Comments MCV (test code = MCV) 92.0 80.0-94.0 [facility] AreaIcokdrmKJJHWSSXIB2527-51-73 18:46:00 Test Item Value Reference Range Interpretation Comments Hct (test code = Hct) 44.5 42.0-54.0 [facility] HospitalItsmddoPEXPVPRYZA8479-71-26 18:46:00 Test Item Value Reference Range Interpretation Comments MCHC (test code = MCHC) 32.4 32.0-36.0 [facility] AreaSpelaiiVQWDNVDWWC6098-65-09 18:46:00 Test Item Value Reference Range Interpretation Comments [employer]-Hep C Ab (test Negative *NA*(07/22/14 code = [employer] [place]-Hep C 1:46 PM) Ab) [facility] AND [id number] 18:46:00 Test Item Value Reference Range Interpretation Comments UA Urobilinogen (test code = UA <=1.0 mg/dL 0.1-1.0 Urobilinogen) [facility] [id number] 18:46:00 Test Item Value Reference Range Interpretation Comments UA Sq Epi (test code = UA Sq Epi) None [facility]en [facility] [id number] 18:46:00 Test Item Value Reference Range Interpretation Comments UA Leuk Est (test Negative (07/22/14 1:46 code = UA Leuk Est) PM) [facility] AND [id number] 18:46:00 Test Item Value Reference Range Interpretation Comments UA Nitrite (test code Negative (07/22/14 1:46 = UA Nitrite) PM) [facility] AND [id number] 18:46:00 Test Item Value Reference Range Interpretation Comments UA Blood (test code = Negative (07/22/14 1:46 UA Blood) PM) [facility] AND [id number] 18:46:00 Test Item Value Reference Range Interpretation Comments UA Ketones (test code = UA Negative mg/dL Ketones) [facility] AND [id number] 18:46:00 Test Item Value Reference Range Interpretation Comments UA Bili (test code = Negative *NA*(07/22/14 UA Bili) 1:46 PM) [facility] AND [id number] 18:46:00 Test Item Value Reference Range Interpretation Comments UA Bacteria (test code = UA Occasional /HPF Bacteria) [facility] AND [id number] 18:46:00 Test Item Value Reference Range Interpretation Comments UA RBC (test code = no gt See_Comment [Automa elizabeth message] The UA RBC) system which ge nerated this result transmit elizabeth reference range : <=2. The reference range was not used to interpr et this result as lukas l/abnormal. [facility] AND [id number] 18:46:00 Test Item Value Reference Range Interpretation Comments UA WBC (test code = 1 See_Comment [Automa elizabeth message] The UA WBC) system which ge nerated this result transmit elizabeth reference range : <=5. The reference range was not used to interpr et this result as lukas l/abnormal. [facility] AND [id number] 18:46:00 Test Item Value Reference Range Interpretation Comments UA Glucose (test code = UA Glucose) 30 mg/dL [facility] AND [id number] 18:46:00 Test Item Value Reference Range Interpretation Comments UA Protein (test code = UA Negative mg/dL Protein) [facility] AND [id number] 18:46:00 Test Item Value Reference Range Interpretation Comments UA pH (test code = UA pH) 6.5 5.0-8.0 [facility] AND [id number] 18:46:00 Test Item Value Reference Range Interpretation Comments UA Turbidity (test code = Clear (07/22/14 1:46 UA Turbidity) PM) [facility] [id number] 18:46:00 Test Item Value Reference Range Interpretation Comments UA Spec Grav (test code = UA Spec Grav) 1.010 [facility] AND [id number] 18:46:00 Test Item Value Reference Range Interpretation Comments UA Color (test code = Light Yellow UA Color) *NA*(07/22/14 1:46 PM) [facility] [id number] 18:46:00 Test Item Value Reference Range Interpretation Comments Magnesium Lvl (test code = Magnesium 1.8 1.8-2.4 Lvl) [id number] 18:46:00 Test Item Value Reference Range Interpretation Comments AGAP (test code = AGAP) 13.2 10.0-20.0 [facility][id number] 18:46:00 Test Item Value Reference Range Interpretation Comments B/C Ratio (test code = B/C Ratio) 18 6-25 [facility] HospitalXwimacjSFGSGPSTUQSJ7064-03-05 18:46:00 Test Item Value Reference Range Interpretation Comments A/G Ratio (test code = A/G Ratio) 1.1 0.7-1.6 [facility] RegionalXjrywzoBZBLKSBRIRIE2677-28-37 18:46:00 Test Item Value Reference Range Interpretation Comments Globulin (test code = Globulin) 3.3 2.0-4.0 [facility] RegionalAkxbvbmSXVQVDLMBKDG7300-02-73 18:46:00 Test Item Value Reference Range Interpretation Comments eGFR (test code = eGFR) 99 [facility] HospitalQeetghlXXQJNQCFLNUP0593-80-71 18:46:00 Test Item Value Reference Range Interpretation Comments Calcium Lvl (test code = Calcium Lvl) 9.0 8.5-10.5 [facility] RegionalLizedpaXDRRIRZYHJGN7946-07-65 18:46:00 Test Item Value Reference Range Interpretation Comments Chloride Lvl (test code = Chloride Lvl) 106 95-109 [facility] HospitalHkpjeguUQOHZZDAJWOQ3909-91-01 18:46:00 Test Item Value Reference Range Interpretation Comments Creatinine Lvl (test code = Creatinine 0.9 0.5-1.4 Lvl) [facility] HospitalSwjhbemIRPCZNOMCBTQ0740-12-30 18:46:00 Test Item Value Reference Range Interpretation Comments Potassium Lvl (test code = Potassium 4.2 3.5-5.1 Lvl) [facility] HospitalQfxzcrrGDAEKJFGQQNY5396-55-60 18:46:00 Test Item Value Reference Range Interpretation Comments Sodium Lvl (test code = Sodium Lvl) 139 135-145 [facility] HospitalIldraorDYCXULCBQTFC2001-60-91 18:46:00 Test Item Value Reference Range Interpretation Comments CO2 (test code = CO2) 24 24-32 [facility] HospitalZpdhqchBDVXYEIRYYXI9476-14-03 18:46:00 Test Item Value Reference Range Interpretation Comments BUN (test code = BUN) 16 7-22 [facility] HospitalZticdwtZCZRXZBZXXIU6201-03-19 18:46:00 Test Item Value Reference Range Interpretation Comments Glucose Lvl (test code = Glucose Lvl) 141 70-99 [facility] HospitalOtgltujFFCYRAZCYJCG8072-69-24 18:46:00 Test Item Value Reference Range Interpretation Comments Albumin Lvl (test code = Albumin Lvl) 3.6 3.5-5.0 [facility] HospitalExrsvliTZCOHCPNSAFP1983-45-67 18:46:00 Test Item Value Reference Range Interpretation Comments Alk Phos (test code = Alk Phos) 65 39-136 [facility] HospitalYuwvhvqJSDGUGPAIQKS5343-77-70 18:46:00 Test Item Value Reference Range Interpretation Comments Bili Total (test code = Bili Total) 0.3 0.2-1.3 [facility] HospitalGwezykdSNVAVXJYMTXY8383-11-67 18:46:00 Test Item Value Reference Range Interpretation Comments ALT (test code = ALT) 100 See_Comment [Auto mated message] The system which ge nerated this result transmit elizabeth reference range : <=65. The reference range was not used to interpr et this result as lukas l/abnormal. [facility] HospitalCkgwjxiQEVDLSTRUEKG5527-96-54 18:46:00 Test Item Value Reference Range Interpretation Comments AST (test code = AST) 53 See_Comment [Auto mated message] The system which ge nerated this result transmit elizabeth reference range : <=37. The reference range was not used to interpr et this result as lukas l/abnormal. [facility] HospitalLytcwanESXOJNCYYDHC7374-38-33 18:46:00 Test Item Value Reference Range Interpretation Comments Total Protein (test code = Total 6.9 6.4-8.4 Protein) [facility]WlddqkwYJHFUDHFKP9994-95-29 18:46:00 Test Item Value Reference Range Interpretation Comments Eosinophils (test code = 4.2 See_Comment [A utomated message] The Eosinophils) system which ge nerated this result tra nsmitted reference range : <=4.0. The reference r mitra was not used to int erpret this result as normal/abnormal . [facility] SouthEfjoiuvBIYMUGNWVK7643-76-53 18:46:00 Test Item Value Reference Range Interpretation Comments Segs (test code = Segs) 56.4 45.0-75.0 [facility] SouthZpjsvwkOTRUTHHHXM2640-66-75 18:46:00 Test Item Value Reference Range Interpretation Comments Monocytes (test code = Monocytes) 10.3 2.0-12.0 [facility] SouthSxdowedDUPZXWROKH6196-56-17 18:46:00 Test Item Value Reference Range Interpretation Comments Lymphocytes (test code = Lymphocytes) 28.0 20.0-40.0 [facility] SouthIyzhnvjSDXUZKIVTX1054-13-76 18:46:00 Test Item Value Reference Range Interpretation Comments Monocytes # (test code 0.5 See_Comment [Aut omated message] The = Monocytes #) system which generated this result tra nsmitted reference range : <=0.8. The reference r mitra was not used to int erpret this result as normal/abnormal . [facility] SouthAjvijhcZLKXUXDRMC8697-95-11 18:46:00 Test Item Value Reference Range Interpretation Comments Basophils (test code = 1.1 See_Comment [Aut omated message] The Basophils) system which ge nerated this result tra nsmitted reference range : <=1.0. The reference r mitra was not used to int erpret this result as normal/abnormal . [facility] SouthLbhelopRWHZENOOQG8286-36-73 18:46:00 Test Item Value Reference Range Interpretation Comments Lymphocytes # (test code = Lymphocytes 1.5 1.0-5.5 #) [facility] SouthQcsvjtzVXPBBIVMOA9279-89-60 18:46:00 Test Item Value Reference Range Interpretation Comments Segs-Bands # (test code = Segs-Bands #) 2.9 1.5-8.1 [facility] SouthSnkjiunFPMPSIOXQC7644-17-72 18:46:00 Test Item Value Reference Range Interpretation Comments Eosinophils # (test code 0.2 See_Comment [A utomated message] The = Eosinophils #) system whic h generated this result tra nsmitted reference range : <=0.5. The reference r mitra was not used to int erpret this result as normal/abnormal . [facility] SouthSqvhkopTFQLEHDXTV5246-71-13 18:46:00 Test Item Value Reference Range Interpretation Comments Basophils # (test code 0.1 See_Comment [Aut omated message] The = Basophils #) system which generated this result tra nsmitted reference range : <=0.2. The reference r mitra was not used to int erpret this result as normal/abnormal . [facility] SouthNjkxybdBGETWUPWQW5390-48-52 18:46:00 Test Item Value Reference Range Interpretation Comments PT (test code = PT) 11.2 s 12.0-14.7 [facility] SouthNqmabjfQNLDMGEQWG5466-36-41 18:46:00 Test Item Value Reference Range Interpretation Comments INR (test code = INR) 0.82 0.85-1.17 [facility] SouthKkcgoxlIMTBJVAADA7089-41-62 18:46:00 Test Item Value Reference Range Interpretation Comments PTT (test code = PTT) 28.6 s 22.9-35.8 [facility] SouthTdjotmsNSBNYRHTPP5835-92-89 18:46:00 Test Item Value Reference Range Interpretation Comments MPV (test code = MPV) 8.1 7.4-10.4 [facility] SouthCwjjkjqPIUHWNVURR7474-22-94 18:46:00 Test Item Value Reference Range Interpretation Comments Platelet (test code = Platelet) 301 133-450 [facility] SouthMtuifpxNIACADZUSL4097-80-59 18:46:00 Test Item Value Reference Range Interpretation Comments RDW (test code = RDW) 14.5 11.5-14.5 [facility] SouthWlsfghsNGLUMCPIAR9704-34-50 18:46:00 Test Item Value Reference Range Interpretation Comments RBC (test code = RBC) 4.84 4.70-6.10 [facility] SouthQubzggoWILTCMNQKM2955-05-01 18:46:00 Test Item Value Reference Range Interpretation Comments Hgb (test code = Hgb) 14.4 14.0-18.0 [facility] SouthCpassszOZIFCWSRTR7189-97-50 18:46:00 Test Item Value Reference Range Interpretation Comments WBC (test code = WBC) 5.2 3.7-10.4 [facility] AreaMkpfmgtUJDNPZGYMR6965-17-93 18:46:00 Test Item Value Reference Range Interpretation Comments MCH (test code = MCH) 29.8 pg 27.0-31.0 [facility]ZehqphcKPYVNPMTSF8738-86-72 18:46:00 Test Item Value Reference Range Interpretation Comments MCV (test code = MCV) 92.0 80.0-94.0 [facility] HospitalNiadtyaSQMFQNVKPB5075-20-28 18:46:00 Test Item Value Reference Range Interpretation Comments Hct (test code = Hct) 44.5 42.0-54.0 [facility] AreaTqajqrrVBAHQQPTDC9345-60-79 18:46:00 Test Item Value Reference Range Interpretation Comments MCHC (test code = MCHC) 32.4 32.0-36.0 [facility] AreaLktcxplHCHUJAKVGM8606-40-03 18:46:00 Test Item Value Reference Range Interpretation Comments [place]-Hep C Ab (test Negative *NA*(07/22/14 code = [place]-Hep C 1:46 PM) Ab) [facility] AND [id number] 18:46:00 Test Item Value Reference Range Interpretation Comments UA Urobilinogen (test code = UA <=1.0 mg/dL 0.1-1.0 Urobilinogen) [facility] AND [id number] 18:46:00 Test Item Value Reference Range Interpretation Comments UA Sq Epi (test code = UA Sq Epi) None Seen [facility] AND [id number] 18:46:00 Test Item Value Reference Range Interpretation Comments UA Leuk Est (test Negative (07/22/14 1:46 code = UA Leuk Est) PM) [facility] AND [id number] 18:46:00 Test Item Value Reference Range Interpretation Comments UA Nitrite (test code Negative (07/22/14 1:46 = UA Nitrite) PM) [facility] AND [id number] 18:46:00 Test Item Value Reference Range Interpretation Comments UA Blood (test code = Negative (07/22/14 1:46 UA Blood) PM) [facility] AND [id number] 18:46:00 Test Item Value Reference Range Interpretation Comments UA Ketones (test code = UA Negative mg/dL Ketones) [facility] AND [id number] 18:46:00 Test Item Value Reference Range Interpretation Comments UA Bili (test code = Negative *NA*(07/22/14 UA Bili) 1:46 PM) [facility] AND [id number] 18:46:00 Test Item Value Reference Range Interpretation Comments UA Bacteria (test code = UA Occasional /HPF Bacteria) [facility] AND [id number] 18:46:00 Test Item Value Reference Range Interpretation Comments UA RBC (test code = no gt See_Comment [Automa elizabeth message] The UA RBC) system which ge nerated this result transmit elizabeth reference range : <=2. The reference range was not used to interpr et this result as lukas l/abnormal. [facility] AND [id number] 18:46:00 Test Item Value Reference Range Interpretation Comments UA WBC (test code = 1 See_Comment [Automa elizabeth message] The UA WBC) system which ge nerated this result transmit elizabeth reference range : <=5. The reference range was not used to interpr et this result as lukas l/abnormal. [facility] AND [id number] 18:46:00 Test Item Value Reference Range Interpretation Comments UA Glucose (test code = UA Glucose) 30 mg/dL [facility] AND [id number] 18:46:00 Test Item Value Reference Range Interpretation Comments UA Protein (test code = UA Negative mg/dL Protein) [facility] AND [id number] 18:46:00 Test Item Value Reference Range Interpretation Comments UA pH (test code = UA pH) 6.5 5.0-8.0 [facility] AND [id number] 18:46:00 Test Item Value Reference Range Interpretation Comments UA Turbidity (test code = Clear (07/22/14 1:46 UA Turbidity) PM) [facility] AND [id number] 18:46:00 Test Item Value Reference Range Interpretation Comments UA Spec Grav (test code = UA Spec Grav) 1.010 [facility] AND [id number] 18:46:00 Test Item Value Reference Range Interpretation Comments UA Color (test code = Light Yellow UA Color) *NA*(07/22/14 1:46 PM) [facility]2015-06-09 18:46:00 Test Item Value Reference Range Interpretation Comments Magnesium Lvl (test code = Magnesium 1.8 1.8-2.4 Lvl) [facility]ZmzpgwwCFNQERMQSFID3637-69-99 18:46:00 Test Item Value Reference Range Interpretation Comments AGAP (test code = AGAP) 13.2 10.0-20.0 [facility] HospitalNpcinarGQXNHJTCPASW6044-46-93 18:46:00 Test Item Value Reference Range Interpretation Comments B/C Ratio (test code = B/C Ratio) 18 6-25 [facility] HospitalQqxowtpBKORAJZUPACW7882-80-30 18:46:00 Test Item Value Reference Range Interpretation Comments A/G Ratio (test code = A/G Ratio) 1.1 0.7-1.6 [facility] HospitalEmaclzqNLNUIEFUTILY9609-12-65 18:46:00 Test Item Value Reference Range Interpretation Comments Globulin (test code = Globulin) 3.3 2.0-4.0 [facility] HospitalJicluinGYSMKYBIPPUL7081-36-32 18:46:00 Test Item Value Reference Range Interpretation Comments eGFR (test code = eGFR) 99 [facility] HospitalLcaujvxTPFHMYQFNQBB8555-75-98 18:46:00 Test Item Value Reference Range Interpretation Comments Calcium Lvl (test code = Calcium Lvl) 9.0 8.5-10.5 [facility] HospitalCmhvcfhXOLBSEGERUTS5728-91-86 18:46:00 Test Item Value Reference Range Interpretation Comments Chloride Lvl (test code = Chloride Lvl) 106 95-109 [facility] HospitalUurunwrZCRJODSGTTAM2571-64-19 18:46:00 Test Item Value Reference Range Interpretation Comments Creatinine Lvl (test code = Creatinine 0.9 0.5-1.4 Lvl) [facility] HospitalSsjtqorYGQKKJZRTWBS8662-80-78 18:46:00 Test Item Value Reference Range Interpretation Comments Potassium Lvl (test code = Potassium 4.2 3.5-5.1 Lvl) [facility] HospitalXeflvsvDJYDJDMEXZXF6003-52-38 18:46:00 Test Item Value Reference Range Interpretation Comments Sodium Lvl (test code = Sodium Lvl) 139 135-145 [facility] HospitalYjxmpijCWTGROSYWZOT3139-26-42 18:46:00 Test Item Value Reference Range Interpretation Comments CO2 (test code = CO2) 24 24-32 [facility] HospitalYkdnlqfINXVTACAOFPY5332-54-88 18:46:00 Test Item Value Reference Range Interpretation Comments BUN (test code = BUN) 16 7-22 [facility] HospitalTvacbdvFYXTPAQXLGIV6127-65-03 18:46:00 Test Item Value Reference Range Interpretation Comments Glucose Lvl (test code = Glucose Lvl) 141 70-99 [facility] HospitalJcklkclHRRGEGAJPUOV4746-30-19 18:46:00 Test Item Value Reference Range Interpretation Comments Albumin Lvl (test code = Albumin Lvl) 3.6 3.5-5.0 [facility] HospitalIdflbawHHLYJYRKQUOA5133-97-61 18:46:00 Test Item Value Reference Range Interpretation Comments Alk Phos (test code = Alk Phos) 65 39-136 [facility] HospitalFgmspxnRKHSNTDLDTBA6024-02-17 18:46:00 Test Item Value Reference Range Interpretation Comments Bili Total (test code = Bili Total) 0.3 0.2-1.3 [facility] HospitalEzmvwvqBDSVMXEWUVWO2896-86-53 18:46:00 Test Item Value Reference Range Interpretation Comments ALT (test code = ALT) 100 See_Comment [Auto mated message] The system which ge nerated this result transmit elizabeth reference range : <=65. The reference range was not used to interpr et this result as lukas l/abnormal. [facility] HospitalPkmaypgYEIDWAKCYJWL5178-51-22 18:46:00 Test Item Value Reference Range Interpretation Comments AST (test code = AST) 53 See_Comment [Auto mated message] The system which ge nerated this result transmit elizabeth reference range : <=37. The reference range was not used to interpr et this result as lukas l/abnormal. [facility] HospitalYlfuujqTHVZEJCSJBRK9682-58-96 18:46:00 Test Item Value Reference Range Interpretation Comments Total Protein (test code = Total 6.9 6.4-8.4 Protein) [facility]KfpkdwbWOFDVWUSFK7855-02-68 18:46:00 Test Item Value Reference Range Interpretation Comments Eosinophils (test code = 4.2 See_Comment [A utomated message] The Eosinophils) system which ge nerated this result tra nsmitted reference range : <=4.0. The reference r mitra was not used to int erpret this result as normal/abnormal . [facility] SouthLhsqoujDUNTPTZRON7293-24-51 18:46:00 Test Item Value Reference Range Interpretation Comments Segs (test code = Segs) 56.4 45.0-75.0 [facility] SouthAfchfhhFNUESFEYOC0561-96-09 18:46:00 Test Item Value Reference Range Interpretation Comments Monocytes (test code = Monocytes) 10.3 2.0-12.0 [place] [id number] 18:46:00 Test Item Value Reference Range Interpretation Comments Lymphocytes (test code = Lymphocytes) 28.0 20.0-40.0 [facility] SouthDmikerrBPVKFIPHBM5529-27-00 18:46:00 Test Item Value Reference Range Interpretation Comments Monocytes # (test code 0.5 See_Comment [Aut omated message] The = Monocytes #) system which generated this result tra nsmitted reference range : <=0.8. The reference r mitra was not used to int erpret this result as normal/abnormal . [facility] SouthXnxzagdNSXPENSNNS3235-16-48 18:46:00 Test Item Value Reference Range Interpretation Comments Basophils (test code = 1.1 See_Comment [Aut omated message] The Basophils) system which ge nerated this result tra nsmitted reference range : <=1.0. The reference r mitra was not used to int erpret this result as normal/abnormal . [facility] SouthTdwmltsXGAVDAPGAY5826-63-25 18:46:00 Test Item Value Reference Range Interpretation Comments Lymphocytes # (test code = Lymphocytes 1.5 1.0-5.5 #) [facility] SouthEnlmbwvZXCKCUNGNP3880-64-74 18:46:00 Test Item Value Reference Range Interpretation Comments Segs-Bands # (test code = Segs-Bands #) 2.9 1.5-8.1 [facility] SouthIfrqptgPNIXVBCODV9591-18-06 18:46:00 Test Item Value Reference Range Interpretation Comments Eosinophils # (test code 0.2 See_Comment [A utomated message] The = Eosinophils #) system whic h generated this result tra nsmitted reference range : <=0.5. The reference r mitra was not used to int erpret this result as normal/abnormal . [facility] SouthGjfxgwgHBIWPLXZEE2548-49-53 18:46:00 Test Item Value Reference Range Interpretation Comments Basophils # (test code 0.1 See_Comment [Aut omated message] The = Basophils #) system which generated this result tra nsmitted reference range : <=0.2. The reference r mitra was not used to int erpret this result as normal/abnormal . [facility] SouthHiimsfmZZZGRGEADL9036-17-17 18:46:00 Test Item Value Reference Range Interpretation Comments PT (test code = PT) 11.2 s 12.0-14.7 [facility] SouthHrxjnloHFVDZGQCDA5105-92-94 18:46:00 Test Item Value Reference Range Interpretation Comments INR (test code = INR) 0.82 0.85-1.17 [facility] SouthHtjgiynSNRRPURJYS0534-71-51 18:46:00 Test Item Value Reference Range Interpretation Comments PTT (test code = PTT) 28.6 s 22.9-35.8 [facility] SouthGvnfjlxTZHHBEBKMR9772-76-86 18:46:00 Test Item Value Reference Range Interpretation Comments MPV (test code = MPV) 8.1 7.4-10.4 [facility] SouthFitfcceEHWPLOOANJ7455-19-81 18:46:00 Test Item Value Reference Range Interpretation Comments Platelet (test code = Platelet) 301 133-450 [facility] SouthAgialroZDAZIMAIZV3196-90-03 18:46:00 Test Item Value Reference Range Interpretation Comments RDW (test code = RDW) 14.5 11.5-14.5 [facility] SouthQbkqygzFADVBXVSJZ2730-88-55 18:46:00 Test Item Value Reference Range Interpretation Comments RBC (test code = RBC) 4.84 4.70-6.10 [facility] SouthFmdvufdZNGHIESEHI5586-06-24 18:46:00 Test Item Value Reference Range Interpretation Comments Hgb (test code = Hgb) 14.4 14.0-18.0 [facility] SouthVzbqolnONFPCENSRH5508-19-92 18:46:00 Test Item Value Reference Range Interpretation Comments WBC (test code = WBC) 5.2 3.7-10.4 [facility] SouthNdfxozeQMZPHGEIFV1752-35-56 18:46:00 Test Item Value Reference Range Interpretation Comments MCH (test code = MCH) 29.8 pg 27.0-31.0 [facility] SouthFpypanlUPLQKCPPGK3191-98-94 18:46:00 Test Item Value Reference Range Interpretation Comments MCV (test code = MCV) 92.0 80.0-94.0 [facility] SouthEevlymvCQSQHXROMP2965-97-97 18:46:00 Test Item Value Reference Range Interpretation Comments Hct (test code = Hct) 44.5 42.0-54.0 [facility]SbxxkoeNWAUDLCCWK0283-88-34 18:46:00 Test Item Value Reference Range Interpretation Comments MCHC (test code = MCHC) 32.4 32.0-36.0 [facility]EpevsrgSWRSUZFGZA4985-05-83 18:46:00 Test Item Value Reference Range Interpretation Comments [employer] [place]-Hep C Ab (test Negative *NA*(07/22/14 code = [place]-Hep C 1:46 PM) Ab) [facility] AND [id number] 18:46:00 Test Item Value Reference Range Interpretation Comments UA Urobilinogen (test code = UA <=1.0 mg/dL 0.1-1.0 Urobilinogen) [facility] AND [id number] 18:46:00 Test Item Value Reference Range Interpretation Comments UA Sq Epi (test code = UA Sq Epi) None Seen [facility] AND [id number] 18:46:00 Test Item Value Reference Range Interpretation Comments UA Leuk Est (test Negative (07/22/14 1:46 code = UA Leuk Est) PM) [facility] AND [id number] 18:46:00 Test Item Value Reference Range Interpretation Comments UA Nitrite (test code Negative (07/22/14 1:46 = UA Nitrite) PM) [facility] AND [id number] 18:46:00 Test Item Value Reference Range Interpretation Comments UA Blood (test code = Negative (07/22/14 1:46 UA Blood) PM) [facility] AND [id number] 18:46:00 Test Item Value Reference Range Interpretation Comments UA Ketones (test code = UA Negative mg/dL Ketones) [facility] AND [id number] 18:46:00 Test Item Value Reference Range Interpretation Comments UA Bili (test code = Negative *NA*(07/22/14 UA Bili) 1:46 PM) [facility] AND [id number] 18:46:00 Test Item Value Reference Range Interpretation Comments UA Bacteria (test code = UA Occasional /HPF Bacteria) [facility] AND [id number] 18:46:00 Test Item Value Reference Range Interpretation Comments UA RBC (test code = no gt See_Comment [Automa elizabeth message] The UA RBC) system which ge nerated this result transmit elizabeth reference range : <=2. The reference range was not used to interpr et this result as lukas l/abnormal. [facility] AND [id number] 18:46:00 Test Item Value Reference Range Interpretation Comments UA WBC (test code = 1 See_Comment [Automa elizabeth message] The UA WBC) system which ge nerated this result transmit elizabeth reference range : <=5. The reference range was not used to interpr et this result as lukas l/abnormal. [facility] [id number] 18:46:00 Test Item Value Reference Range Interpretation Comments UA Glucose (test code = UA Glucose) 30 mg/dL [facility] AND [id number] 18:46:00 Test Item Value Reference Range Interpretation Comments UA Protein (test code = UA Negative mg/dL Protein) [facility] AND [id number] 18:46:00 Test Item Value Reference Range Interpretation Comments UA pH (test code = UA pH) 6.5 5.0-8.0 [facility] AND [id number] 18:46:00 Test Item Value Reference Range Interpretation Comments UA Turbidity (test code = Clear (07/22/14 1:46 UA Turbidity) PM) [facility] AND [id number] 18:46:00 Test Item Value Reference Range Interpretation Comments UA Spec Grav (test code = UA Spec Grav) 1.010 [facility] AND [id number] 18:46:00 Test Item Value Reference Range Interpretation Comments UA Color (test code = Light Yellow UA Color) *NA*(07/22/14 1:46 PM) [facility] [id number] 18:46:00 Test Item Value Reference Range Interpretation Comments Magnesium Lvl (test code = Magnesium 1.8 1.8-2.4 Lvl) [facility]IpqdzooNIKZXCRRVZIW2295-74-38 18:46:00 Test Item Value Reference Range Interpretation Comments AGAP (test code = AGAP) 13.2 10.0-20.0 [facility] CenterCjckaxrZCSYWKNHKFQW0914-72-21 18:46:00 Test Item Value Reference Range Interpretation Comments B/C Ratio (test code = B/C Ratio) 18 6-25 [facility]kRZWOGOGWDMYL5780-51-36 18:46:00 Test Item Value Reference Range Interpretation Comments A/G Ratio (test code = A/G Ratio) 1.1 0.7-1.6 [facility]NeveojqVMFBSDNKNBMU6463-72-38 18:46:00 Test Item Value Reference Range Interpretation Comments Globulin (test code = Globulin) 3.3 2.0-4.0 [facility] HospitalGzwgiaiPBZMIRVAGFDR8429-95-09 18:46:00 Test Item Value Reference Range Interpretation Comments eGFR (test code = eGFR) 99 [facility] HospitalTvnjpknHVJSWONTFUHC8975-03-73 18:46:00 Test Item Value Reference Range Interpretation Comments Calcium Lvl (test code = Calcium Lvl) 9.0 8.5-10.5 [facility] HospitalWdahgxzROOYRTQPYZFA4527-59-01 18:46:00 Test Item Value Reference Range Interpretation Comments Chloride Lvl (test code = Chloride Lvl) 106 95-109 [facility] HospitalGdaelbxASVPEZRJYSUX9871-39-60 18:46:00 Test Item Value Reference Range Interpretation Comments Creatinine Lvl (test code = Creatinine 0.9 0.5-1.4 Lvl) [facility] HospitalUgoxhvzXZTQAOQHEYTN8697-96-46 18:46:00 Test Item Value Reference Range Interpretation Comments Potassium Lvl (test code = Potassium 4.2 3.5-5.1 Lvl) [facility] HospitalNjniqwvMOUYSCPUDEMR2795-67-89 18:46:00 Test Item Value Reference Range Interpretation Comments Sodium Lvl (test code = Sodium Lvl) 139 135-145 [facility] HospitalKtwekztZUTQOGEZISDB3311-32-63 18:46:00 Test Item Value Reference Range Interpretation Comments CO2 (test code = CO2) 24 24-32 [facility] HospitalClaupvaAOYONKTAYQBC2038-19-22 18:46:00 Test Item Value Reference Range Interpretation Comments BUN (test code = BUN) 16 7-22 [facility] HospitalPqtebydVZKPVDLRECAD3627-70-45 18:46:00 Test Item Value Reference Range Interpretation Comments Glucose Lvl (test code = Glucose Lvl) 141 70-99 [facility] HospitalIcghaczKUVUEPDOIDER8573-68-52 18:46:00 Test Item Value Reference Range Interpretation Comments Albumin Lvl (test code = Albumin Lvl) 3.6 3.5-5.0 [facility] HospitalGpnlfuiWMWVFFTGTQLT3457-85-79 18:46:00 Test Item Value Reference Range Interpretation Comments Alk Phos (test code = Alk Phos) 65 39-136 [facility] HospitalKffuiyyDQHHMXMYOJFJ5557-45-35 18:46:00 Test Item Value Reference Range Interpretation Comments Bili Total (test code = Bili Total) 0.3 0.2-1.3 [facility] HospitalXlpiuxtBBUFLDOQOPEJ2163-06-96 18:46:00 Test Item Value Reference Range Interpretation Comments ALT (test code = ALT) 100 See_Comment [Auto mated message] The system which ge nerated this result transmit elizabeth reference range : <=65. The reference range was not used to interpr et this result as lukas l/abnormal. [facility] HospitalNbbgdxuVSNZJJGCSJZI1302-52-63 18:46:00 Test Item Value Reference Range Interpretation Comments AST (test code = AST) 53 See_Comment [Auto mated message] The system which ge nerated this result transmit elizabeth reference range : <=37. The reference range was not used to interpr et this result as lukas l/abnormal. [facility] HospitalGjsicflEAOWRBYFTLEN2664-82-96 18:46:00 Test Item Value Reference Range Interpretation Comments Total Protein (test code = Total 6.9 6.4-8.4 Protein) [facility]IajwtndRNRSIJLAVR9105-41-69 18:46:00 Test Item Value Reference Range Interpretation Comments Eosinophils (test code = 4.2 See_Comment [A utomated message] The Eosinophils) system which ge nerated this result tra nsmitted reference range : <=4.0. The reference r mitra was not used to int erpret this result as normal/abnormal . [facility] SouthFlxcwjtJZVMLAIERB7277-36-78 18:46:00 Test Item Value Reference Range Interpretation Comments Segs (test code = Segs) 56.4 45.0-75.0 [facility] SouthXythhaaZEHWYBCXQA4968-43-26 18:46:00 Test Item Value Reference Range Interpretation Comments Monocytes (test code = Monocytes) 10.3 2.0-12.0 [facility] SouthCersvaqRFSFPSEXPV2892-66-95 18:46:00 Test Item Value Reference Range Interpretation Comments Lymphocytes (test code = Lymphocytes) 28.0 20.0-40.0 [facility] SouthRweopikSENDRLGVJW6309-10-07 18:46:00 Test Item Value Reference Range Interpretation Comments Monocytes # (test code 0.5 See_Comment [Aut omated message] The = Monocytes #) system which generated this result tra nsmitted reference range : <=0.8. The reference r mitra was not used to int erpret this result as normal/abnormal . [facility] SouthIpobxpyELNFAUKXDF7435-06-74 18:46:00 Test Item Value Reference Range Interpretation Comments Basophils (test code = 1.1 See_Comment [Aut omated message] The Basophils) system which ge nerated this result tra nsmitted reference range : <=1.0. The reference r mitra was not used to int erpret this result as normal/abnormal . [facility] SouthQhgzlcoKTAWBCQRTU5580-99-78 18:46:00 Test Item Value Reference Range Interpretation Comments Lymphocytes # (test code = Lymphocytes 1.5 1.0-5.5 #) [facility] SouthWzdnturEBGKSVEQXQ2488-38-82 18:46:00 Test Item Value Reference Range Interpretation Comments Segs-Bands # (test code = Segs-Bands #) 2.9 1.5-8.1 [facility] SouthOddkzgcODAVLAUFRA5834-65-68 18:46:00 Test Item Value Reference Range Interpretation Comments Eosinophils # (test code 0.2 See_Comment [A utomated message] The = Eosinophils #) system whic h generated this result tra nsmitted reference range : <=0.5. The reference r mitra was not used to int erpret this result as normal/abnormal . [facility] SouthYjyseacBNNRFRJRRQ3291-54-91 18:46:00 Test Item Value Reference Range Interpretation Comments Basophils # (test code 0.1 See_Comment [Aut omated message] The = Basophils #) system which generated this result tra nsmitted reference range : <=0.2. The reference r mitra was not used to int erpret this result as normal/abnormal . [facility] SouthMpocdkoXTINTCYCVO7805-68-37 18:46:00 Test Item Value Reference Range Interpretation Comments PT (test code = PT) 11.2 s 12.0-14.7 [facility] SouthUgmwxttRBHCVFRWJO0513-04-49 18:46:00 Test Item Value Reference Range Interpretation Comments INR (test code = INR) 0.82 0.85-1.17 [facility] SouthCahimggHFYXQIOUVT8342-42-57 18:46:00 Test Item Value Reference Range Interpretation Comments PTT (test code = PTT) 28.6 s 22.9-35.8 [place] [id number] 18:46:00 Test Item Value Reference Range Interpretation Comments MPV (test code = MPV) 8.1 7.4-10.4 [facility]IrowuhvMBPUCFWTUJ9983-27-40 18:46:00 Test Item Value Reference Range Interpretation Comments Platelet (test code = Platelet) 301 133-450 [facility] HospitalWzffdvkORRXIHWFJR8176-96-86 18:46:00 Test Item Value Reference Range Interpretation Comments RDW (test code = RDW) 14.5 11.5-14.5 [facility] HospitalThqltzjXYDENUXEQC7141-74-86 18:46:00 Test Item Value Reference Range Interpretation Comments RBC (test code = RBC) 4.84 4.70-6.10 [facility] HospitalBtzuauxERBHJIVQLN3959-70-50 18:46:00 Test Item Value Reference Range Interpretation Comments Hgb (test code = Hgb) 14.4 14.0-18.0 [facility] HospitalAvtlqkcBJXNLCCJHX2094-84-12 18:46:00 Test Item Value Reference Range Interpretation Comments WBC (test code = WBC) 5.2 3.7-10.4 [facility] HospitalWcsbythAWPHNXHFWB8344-45-20 18:46:00 Test Item Value Reference Range Interpretation Comments MCH (test code = MCH) 29.8 pg 27.0-31.0 [facility] HospitalFuonnnjBLKWRNVVMN9265-04-60 18:46:00 Test Item Value Reference Range Interpretation Comments MCV (test code = MCV) 92.0 80.0-94.0 [facility] AreaMqdnxlnRGSKOSKMJR8159-61-22 18:46:00 Test Item Value Reference Range Interpretation Comments Hct (test code = Hct) 44.5 42.0-54.0 [facility] AreaWkhjedsIJXLAWWGWF6214-86-87 18:46:00 Test Item Value Reference Range Interpretation Comments MCHC (test code = MCHC) 32.4 32.0-36.0 [facility] AreaCenzrdfDHAWYHMDWG8233-55-61 18:46:00 Test Item Value Reference Range Interpretation Comments [place]-Hep C Ab (test Negative *NA*(07/22/14 code = [place]-Hep C 1:46 PM) Ab) [facility] [id number] 18:46:00 Test Item Value Reference Range Interpretation Comments UA Urobilinogen (test code = UA <=1.0 mg/dL 0.1-1.0 Urobilinogen) [facility] AND [id number] 18:46:00 Test Item Value Reference Range Interpretation Comments UA Sq Epi (test code = UA Sq Epi) None Seen [facility] AND [id number] 18:46:00 Test Item Value Reference Range Interpretation Comments UA Leuk Est (test Negative (07/22/14 1:46 code = UA Leuk Est) PM) [facility] AND [id number] 18:46:00 Test Item Value Reference Range Interpretation Comments UA Nitrite (test code Negative (07/22/14 1:46 = UA Nitrite) PM) [facility] AND [id number] 18:46:00 Test Item Value Reference Range Interpretation Comments UA Blood (test code = Negative (07/22/14 1:46 UA Blood) PM) [facility] AND [id number] 18:46:00 Test Item Value Reference Range Interpretation Comments UA Ketones (test code = UA Negative mg/dL Ketones) [facility] AND [id number] 18:46:00 Test Item Value Reference Range Interpretation Comments UA Bili (test code = Negative *NA*(07/22/14 UA Bili) 1:46 PM) [facility] AND [id number] 18:46:00 Test Item Value Reference Range Interpretation Comments UA Bacteria (test code = UA Occasional /HPF Bacteria) [facility] AND [id number] 18:46:00 Test Item Value Reference Range Interpretation Comments UA RBC (test code = no gt See_Comment [Automa elizabeth message] The UA RBC) system which ge nerated this result transmit elizabeth reference range : <=2. The reference range was not used to interpr et this result as lukas l/abnormal. [facility] AND [id number] 18:46:00 Test Item Value Reference Range Interpretation Comments UA WBC (test code = 1 See_Comment [Automa elizabeth message] The UA WBC) system which ge nerated this result transmit elizabeth reference range : <=5. The reference range was not used to interpr et this result as lukas l/abnormal. [facility] AND [id number] 18:46:00 Test Item Value Reference Range Interpretation Comments UA Glucose (test code = UA Glucose) 30 mg/dL [facility] AND [id number] 18:46:00 Test Item Value Reference Range Interpretation Comments UA Protein (test code = UA Negative mg/dL Protein) [facility] AND [id number] 18:46:00 Test Item Value Reference Range Interpretation Comments UA pH (test code = UA pH) 6.5 5.0-8.0 [facility] AND [id number] 18:46:00 Test Item Value Reference Range Interpretation Comments UA Turbidity (test code = Clear (07/22/14 1:46 UA Turbidity) PM) [facility] AND [id number] 18:46:00 Test Item Value Reference Range Interpretation Comments UA Spec Grav (test code = UA Spec Grav) 1.010 [facility] AND [id number] 18:46:00 Test Item Value Reference Range Interpretation Comments UA Color (test code = Light Yellow UA Color) *NA*(07/22/14 1:46 PM) [facility] [id number] 18:46:00 Test Item Value Reference Range Interpretation Comments Magnesium Lvl (test code = Magnesium 1.8 1.8-2.4 Lvl) [facility] HospitalJqbxmfsIDQUCHZTIFTI0486-64-49 18:46:00 Test Item Value Reference Range Interpretation Comments AGAP (test code = AGAP) 13.2 10.0-20.0 [facility] HospitalOenyvvrQVRJAQORQJNW4278-29-30 18:46:00 Test Item Value Reference Range Interpretation Comments B/C Ratio (test code = B/C Ratio) 18 6-25 [facility] HospitalYwykhqvWFKHHVRQFSUQ3036-83-17 18:46:00 Test Item Value Reference Range Interpretation Comments A/G Ratio (test code = A/G Ratio) 1.1 0.7-1.6 [facility] HospitalHyojwahRHWWHJOSSVNZ4001-20-11 18:46:00 Test Item Value Reference Range Interpretation Comments Globulin (test code = Globulin) 3.3 2.0-4.0 [facility] HospitalMcdwuzjDZPRJNBKJQTG8810-22-58 18:46:00 Test Item Value Reference Range Interpretation Comments eGFR (test code = eGFR) 99 [facility] HospitalDoaiccnULBNVENBDMZO1598-03-45 18:46:00 Test Item Value Reference Range Interpretation Comments Calcium Lvl (test code = Calcium Lvl) 9.0 8.5-10.5 [facility] HospitalCjamoyzFYDWSRINGDQX1174-34-85 18:46:00 Test Item Value Reference Range Interpretation Comments Chloride Lvl (test code = Chloride Lvl) 106 95-109 [facility] HospitalNhycbfxWOFXJFTQXYGQ4714-14-07 18:46:00 Test Item Value Reference Range Interpretation Comments Creatinine Lvl (test code = Creatinine 0.9 0.5-1.4 Lvl) [facility] HospitalNeebdmeJHCKRZKCFSDI2312-21-90 18:46:00 Test Item Value Reference Range Interpretation Comments Potassium Lvl (test code = Potassium 4.2 3.5-5.1 Lvl) [facility] HospitalKypsltbZUTAPAWJZCTV6578-32-88 18:46:00 Test Item Value Reference Range Interpretation Comments Sodium Lvl (test code = Sodium Lvl) 139 135-145 [facility] HospitalJkianqbISABDNRDLIWJ6675-10-12 18:46:00 Test Item Value Reference Range Interpretation Comments CO2 (test code = CO2) 24 24-32 [facility] HospitalZfiujunTNTFCTGCPZTS7521-29-44 18:46:00 Test Item Value Reference Range Interpretation Comments BUN (test code = BUN) 16 7-22 [facility] HospitalUroffkvFRTMYLXXESCM9158-26-55 18:46:00 Test Item Value Reference Range Interpretation Comments Glucose Lvl (test code = Glucose Lvl) 141 70-99 [facility] HospitalWkqzwhmHKYSIWAAXPDQ8928-49-53 18:46:00 Test Item Value Reference Range Interpretation Comments Albumin Lvl (test code = Albumin Lvl) 3.6 3.5-5.0 [facility] HospitalLhbprvgMRRMWVRXZJRN0495-43-10 18:46:00 Test Item Value Reference Range Interpretation Comments Alk Phos (test code = Alk Phos) 65 39-136 [facility] HospitalFerxnikVGMCQQOBPHWI7336-64-36 18:46:00 Test Item Value Reference Range Interpretation Comments Bili Total (test code = Bili Total) 0.3 0.2-1.3 [facility] HospitalYtloyuiPYEFJXOLBIXO6155-36-67 18:46:00 Test Item Value Reference Range Interpretation Comments ALT (test code = ALT) 100 See_Comment [Auto mated message] The system which ge nerated this result transmit elizabeth reference range : <=65. The reference range was not used to interpr et this result as lukas l/abnormal. [facility] HospitalVaoxzteERIEHSQHELTC3282-41-87 18:46:00 Test Item Value Reference Range Interpretation Comments AST (test code = AST) 53 See_Comment [Auto mated message] The system which ge nerated this result transmit elizabeth reference range : <=37. The reference range was not used to interpr et this result as lukas l/abnormal. [facility] HospitalPgfpmlmIOFWHOLHFNXJ9885-86-78 18:46:00 Test Item Value Reference Range Interpretation Comments Total Protein (test code = Total 6.9 6.4-8.4 Protein) [facility]RlkffldPYQQUREGET8597-59-18 18:46:00 Test Item Value Reference Range Interpretation Comments Eosinophils (test code = 4.2 See_Comment [A utomated message] The Eosinophils) system which ge nerated this result tra nsmitted reference range : <=4.0. The reference r mitra was not used to int erpret this result as normal/abnormal . [facility] SouthJzuritmKMJPBQQKAE1785-22-39 18:46:00 Test Item Value Reference Range Interpretation Comments Segs (test code = Segs) 56.4 45.0-75.0 [facility] SouthWusxcmjOFRHTVAAYG9238-94-08 18:46:00 Test Item Value Reference Range Interpretation Comments Monocytes (test code = Monocytes) 10.3 2.0-12.0 [facility] SouthUzzewcvNGDAAKLFZN7982-26-64 18:46:00 Test Item Value Reference Range Interpretation Comments Lymphocytes (test code = Lymphocytes) 28.0 20.0-40.0 [facility] SouthZucahpzQFYMYOTDIW9988-39-00 18:46:00 Test Item Value Reference Range Interpretation Comments Monocytes # (test code 0.5 See_Comment [Aut omated message] The = Monocytes #) system which generated this result tra nsmitted reference range : <=0.8. The reference r mitra was not used to int erpret this result as normal/abnormal . [facility] SouthIhujecpMPEOMWIHVX2350-69-47 18:46:00 Test Item Value Reference Range Interpretation Comments Basophils (test code = 1.1 See_Comment [Aut omated message] The Basophils) system which ge nerated this result tra nsmitted reference range : <=1.0. The reference r mitra was not used to int erpret this result as normal/abnormal . [facility] SouthTbbqjmqWUALHGRNJM4484-81-33 18:46:00 Test Item Value Reference Range Interpretation Comments Lymphocytes # (test code = Lymphocytes 1.5 1.0-5.5 #) [facility] SouthKkfovopMMUKIVZIXY8456-05-73 18:46:00 Test Item Value Reference Range Interpretation Comments Segs-Bands # (test code = Segs-Bands #) 2.9 1.5-8.1 [facility] SouthExicudkXVJGAMWNYG0212-51-47 18:46:00 Test Item Value Reference Range Interpretation Comments Eosinophils # (test code 0.2 See_Comment [A utomated message] The = Eosinophils #) system whic h generated this result tra nsmitted reference range : <=0.5. The reference r mitra was not used to int erpret this result as normal/abnormal . [facility] SouthPfnqjpyCQFFOLMFHH0043-16-82 18:46:00 Test Item Value Reference Range Interpretation Comments Basophils # (test code 0.1 See_Comment [Aut omated message] The = Basophils #) system which generated this result tra nsmitted reference range : <=0.2. The reference r mitra was not used to int erpret this result as normal/abnormal . [facility] SouthBcebawyDCBCJNNDZK9696-34-83 18:46:00 Test Item Value Reference Range Interpretation Comments PT (test code = PT) 11.2 s 12.0-14.7 [facility] SouthLaojcmtKPXACVDZDJ4291-30-18 18:46:00 Test Item Value Reference Range Interpretation Comments INR (test code = INR) 0.82 0.85-1.17 [facility] SouthKsetwczUXHGIMFLQE3388-67-78 18:46:00 Test Item Value Reference Range Interpretation Comments PTT (test code = PTT) 28.6 s 22.9-35.8 [facility] SouthZketicpOOQPZYIRLQ9700-15-58 18:46:00 Test Item Value Reference Range Interpretation Comments MPV (test code = MPV) 8.1 7.4-10.4 [facility] SouthIgicidcCHJROFRGXI9258-78-05 18:46:00 Test Item Value Reference Range Interpretation Comments Platelet (test code = Platelet) 301 133-450 [facility] SouthDkgseldKXZSKUONBL1278-60-55 18:46:00 Test Item Value Reference Range Interpretation Comments RDW (test code = RDW) 14.5 11.5-14.5 [facility] SouthYfdkpeqQRIIIBIOFV2364-00-93 18:46:00 Test Item Value Reference Range Interpretation Comments RBC (test code = RBC) 4.84 4.70-6.10 [facility] AreaIwjzsftSKWBXFFPSL2814-00-05 18:46:00 Test Item Value Reference Range Interpretation Comments Hgb (test code = Hgb) 14.4 14.0-18.0 [facility]ywrKDUFGFVHER1557-36-18 18:46:00 Test Item Value Reference Range Interpretation Comments WBC (test code = WBC) 5.2 3.7-10.4 [facility] HospitalDefrtdwHLWXHXSGQO2542-08-34 18:46:00 Test Item Value Reference Range Interpretation Comments MCH (test code = MCH) 29.8 pg 27.0-31.0 [facility] HospitalWrwmzbeZCZOBZICHX4711-95-80 18:46:00 Test Item Value Reference Range Interpretation Comments MCV (test code = MCV) 92.0 80.0-94.0 [facility] AreaVufmlaiKBMBVYQKNO9062-26-04 18:46:00 Test Item Value Reference Range Interpretation Comments Hct (test code = Hct) 44.5 42.0-54.0 [facility] AreaTyampwdVVAKBEOJKJ5818-52-16 18:46:00 Test Item Value Reference Range Interpretation Comments MCHC (test code = MCHC) 32.4 32.0-36.0 [facility] AreaCmsypndLPNRYCCMCA0461-07-19 18:46:00 Test Item Value Reference Range Interpretation Comments [employer] [place]-Hep C Ab (test Negative *NA*(07/22/14 code = [place]-Hep C 1:46 PM) Ab) [facility] AND [id number] 18:46:00 Test Item Value Reference Range Interpretation Comments UA Urobilinogen (test code = UA <=1.0 mg/dL 0.1-1.0 Urobilinogen) [facility] AND [id number] 18:46:00 Test Item Value Reference Range Interpretation Comments UA Sq Epi (test code = UA Sq Epi) None Seen [facility] AND [id number] 18:46:00 Test Item Value Reference Range Interpretation Comments UA Leuk Est (test Negative (07/22/14 1:46 code = UA Leuk Est) PM) [facility] AND [id number] 18:46:00 Test Item Value Reference Range Interpretation Comments UA Nitrite (test code Negative (07/22/14 1:46 = UA Nitrite) PM) [facility] [id number] 18:46:00 Test Item Value Reference Range Interpretation Comments UA Blood (test code = Negative (07/22/14 1:46 UA Blood) PM) [facility] AND [id number] 18:46:00 Test Item Value Reference Range Interpretation Comments UA Ketones (test code = UA Negative mg/dL Ketones) [facility] AND [id number] 18:46:00 Test Item Value Reference Range Interpretation Comments UA Bili (test code = Negative *NA*(07/22/14 UA Bili) 1:46 PM) [facility] AND [id number] 18:46:00 Test Item Value Reference Range Interpretation Comments UA Bacteria (test code = UA Occasional /HPF Bacteria) [facility] AND [id number] 18:46:00 Test Item Value Reference Range Interpretation Comments UA RBC (test code = no gt See_Comment [Automa elizabeth message] The UA RBC) system which ge nerated this result transmit elizabeth reference range : <=2. The reference range was not used to interpr et this result as lukas l/abnormal. [facility] AND [id number] 18:46:00 Test Item Value Reference Range Interpretation Comments UA WBC (test code = 1 See_Comment [Automa elizabeth message] The UA WBC) system which ge nerated this result transmit elizabeth reference range : <=5. The reference range was not used to interpr et this result as lukas l/abnormal. [facility] AND [id number] 18:46:00 Test Item Value Reference Range Interpretation Comments UA Glucose (test code = UA Glucose) 30 mg/dL [facility] AND [id number] 18:46:00 Test Item Value Reference Range Interpretation Comments UA Protein (test code = UA Negative mg/dL Protein) [facility] AND [id number] 18:46:00 Test Item Value Reference Range Interpretation Comments UA pH (test code = UA pH) 6.5 5.0-8.0 [facility] AND [id number] 18:46:00 Test Item Value Reference Range Interpretation Comments UA Turbidity (test code = Clear (07/22/14 1:46 UA Turbidity) PM) [facility] AND [id number] 18:46:00 Test Item Value Reference Range Interpretation Comments UA Spec Grav (test code = UA Spec Grav) 1.010 [facility] [id number] 18:46:00 Test Item Value Reference Range Interpretation Comments UA Color (test code = Light Yellow UA Color) *NA*(07/22/14 1:46 PM) [id number] 18:46:00 Test Item Value Reference Range Interpretation Comments Magnesium Lvl (test code = Magnesium 1.8 1.8-2.4 Lvl) [facility]pxBQSYPYVIALBQ4872-78-82 18:46:00 Test Item Value Reference Range Interpretation Comments AGAP (test code = AGAP) 13.2 10.0-20.0 [facility]vlpuwrXCEHZSGBWXOP9514-76-12 18:46:00 Test Item Value Reference Range Interpretation Comments B/C Ratio (test code = B/C Ratio) 18 6-25 [facility] HospitalFaiydfaBOJYDYFOUDRF9305-52-01 18:46:00 Test Item Value Reference Range Interpretation Comments A/G Ratio (test code = A/G Ratio) 1.1 0.7-1.6 [facility] HospitalGmchjmePOQFSGHLPMWE7126-73-57 18:46:00 Test Item Value Reference Range Interpretation Comments Globulin (test code = Globulin) 3.3 2.0-4.0 [facility] HospitalDenojyyVKOXAMWTSJOQ2682-53-65 18:46:00 Test Item Value Reference Range Interpretation Comments eGFR (test code = eGFR) 99 [facility] HospitalKndqclfXIASCEEFKLPI9122-30-23 18:46:00 Test Item Value Reference Range Interpretation Comments Calcium Lvl (test code = Calcium Lvl) 9.0 8.5-10.5 [facility] HospitalOiuzybxSPQBOGWBATMG3948-74-43 18:46:00 Test Item Value Reference Range Interpretation Comments Chloride Lvl (test code = Chloride Lvl) 106 95-109 [facility] HospitalWlvvamyWVNJAZAHZJHX7334-32-61 18:46:00 Test Item Value Reference Range Interpretation Comments Creatinine Lvl (test code = Creatinine 0.9 0.5-1.4 Lvl) [facility] HospitalLnhbnrlSXRPKHUJRUUS9030-21-38 18:46:00 Test Item Value Reference Range Interpretation Comments Potassium Lvl (test code = Potassium 4.2 3.5-5.1 Lvl) [facility] HospitalThzciwlKYCFTGDALZHC6943-42-98 18:46:00 Test Item Value Reference Range Interpretation Comments Sodium Lvl (test code = Sodium Lvl) 139 135-145 [facility] HospitalOisshrjGJIVCGKFYGMS5872-29-70 18:46:00 Test Item Value Reference Range Interpretation Comments CO2 (test code = CO2) 24 24-32 [facility] HospitalAlarcurGVEQEZXLIBZF1134-50-75 18:46:00 Test Item Value Reference Range Interpretation Comments BUN (test code = BUN) 16 7-22 [facility] HospitalUeqssofUVATEFRAAXAB9679-61-26 18:46:00 Test Item Value Reference Range Interpretation Comments Glucose Lvl (test code = Glucose Lvl) 141 70-99 [facility] HospitalNsimdaiEWILYBNWCPBT9552-29-33 18:46:00 Test Item Value Reference Range Interpretation Comments Albumin Lvl (test code = Albumin Lvl) 3.6 3.5-5.0 [facility] HospitalXwgudloELMLPAFGDSWZ9339-77-60 18:46:00 Test Item Value Reference Range Interpretation Comments Alk Phos (test code = Alk Phos) 65 39-136 [facility] HospitalWavivstILUZFVEUEKWJ8936-13-56 18:46:00 Test Item Value Reference Range Interpretation Comments Bili Total (test code = Bili Total) 0.3 0.2-1.3 [facility] HospitalCnspsquYUFQUMEAMQEO4189-65-42 18:46:00 Test Item Value Reference Range Interpretation Comments ALT (test code = ALT) 100 See_Comment [Auto mated message] The system which ge nerated this result transmit elizabeth reference range : <=65. The reference range was not used to interpr et this result as lukas l/abnormal. [facility] HospitalTziddaeLYGFQIIQBCED9161-62-30 18:46:00 Test Item Value Reference Range Interpretation Comments AST (test code = AST) 53 See_Comment [Auto mated message] The system which ge nerated this result transmit elizabeth reference range : <=37. The reference range was not used to interpr et this result as lukas l/abnormal. [facility] HospitalQsiizhpGMMDOSQSFZLJ1223-11-85 18:46:00 Test Item Value Reference Range Interpretation Comments Total Protein (test code = Total 6.9 6.4-8.4 Protein) [facility] AreaSluhsfhCHWFSSOCUT4714-43-31 18:46:00 Test Item Value Reference Range Interpretation Comments Eosinophils (test code = 4.2 See_Comment [A utomated message] The Eosinophils) system which ge nerated this result tra nsmitted reference range : <=4.0. The reference r mitra was not used to int erpret this result as normal/abnormal . [facility]XwzucbqNBERKYFRJM9354-95-73 18:46:00 Test Item Value Reference Range Interpretation Comments Segs (test code = Segs) 56.4 45.0-75.0 [facility]XpzujqrWDRCTXRWRJ7025-04-49 18:46:00 Test Item Value Reference Range Interpretation Comments Monocytes (test code = Monocytes) 10.3 2.0-12.0 [facility] SouthUoihmrmQWWJYNQZUO8739-83-06 18:46:00 Test Item Value Reference Range Interpretation Comments Lymphocytes (test code = Lymphocytes) 28.0 20.0-40.0 [facility] SouthAkoqkwmXVCEQKCCCU8592-99-89 18:46:00 Test Item Value Reference Range Interpretation Comments Monocytes # (test code 0.5 See_Comment [Aut omated message] The = Monocytes #) system which generated this result tra nsmitted reference range : <=0.8. The reference r mitra was not used to int erpret this result as normal/abnormal . [facility] SouthQnybgncMZPOXHXPKM9301-73-61 18:46:00 Test Item Value Reference Range Interpretation Comments Basophils (test code = 1.1 See_Comment [Aut omated message] The Basophils) system which ge nerated this result tra nsmitted reference range : <=1.0. The reference r mitra was not used to int erpret this result as normal/abnormal . [facility] SouthEyvsjqfOUHLDJQKSO3531-02-31 18:46:00 Test Item Value Reference Range Interpretation Comments Lymphocytes # (test code = Lymphocytes 1.5 1.0-5.5 #) [facility] SouthPsuopwcXYXLBCCIKY5082-35-44 18:46:00 Test Item Value Reference Range Interpretation Comments Segs-Bands # (test code = Segs-Bands #) 2.9 1.5-8.1 [facility] SouthJsbhopwRSBJOROJPY9878-48-99 18:46:00 Test Item Value Reference Range Interpretation Comments Eosinophils # (test code 0.2 See_Comment [A utomated message] The = Eosinophils #) system [facility] h generated this result tra nsmitted reference range : <=0.5. The reference r mitra was not used to int erpret this result as normal/abnormal . [facility] SouthJdvnxwkMKXITINCAC0108-81-63 18:46:00 Test Item Value Reference Range Interpretation Comments Basophils # (test code 0.1 See_Comment [Aut omated message] The = Basophils #) system which generated this result tra nsmitted reference range : <=0.2. The reference r mitra was not used to int erpret this result as normal/abnormal . [facility] SouthRzouedjWIQRIFAVND2905-01-87 18:46:00 Test Item Value Reference Range Interpretation Comments PT (test code = PT) 11.2 s 12.0-14.7 [facility] SouthHgxrflwXTXXEHPNWU0200-04-58 18:46:00 Test Item Value Reference Range Interpretation Comments INR (test code = INR) 0.82 0.85-1.17 [facility] SouthOonevsvVSVCGWWYHC8335-34-93 18:46:00 Test Item Value Reference Range Interpretation Comments PTT (test code = PTT) 28.6 s 22.9-35.8 [facility] SouthNiecmudKLZHKFKMHA5638-80-37 18:46:00 Test Item Value Reference Range Interpretation Comments MPV (test code = MPV) 8.1 7.4-10.4 [facility] SouthBplgesdSCFPLTNDIS9493-27-37 18:46:00 Test Item Value Reference Range Interpretation Comments Platelet (test code = Platelet) 301 133-450 [facility] SouthGaksibaZYLATIQCXS6016-00-30 18:46:00 Test Item Value Reference Range Interpretation Comments RDW (test code = RDW) 14.5 11.5-14.5 [facility] SouthWcsrelpWIIXXJIMPQ5436-07-98 18:46:00 Test Item Value Reference Range Interpretation Comments RBC (test code = RBC) 4.84 4.70-6.10 [facility] SouthWhwzkwbHIRVNNRTHC9801-54-92 18:46:00 Test Item Value Reference Range Interpretation Comments Hgb (test code = Hgb) 14.4 14.0-18.0 [facility] SouthQdbovvhXFVSJLVERN3047-58-09 18:46:00 Test Item Value Reference Range Interpretation Comments WBC (test code = WBC) 5.2 3.7-10.4 [facility] SouthPvgoxooSLAKEBGWKB1316-02-76 18:46:00 Test Item Value Reference Range Interpretation Comments MCH (test code = MCH) 29.8 pg 27.0-31.0 [facility] SouthDsvxbqwRECIJQFKIG4214-49-78 18:46:00 Test Item Value Reference Range Interpretation Comments MCV (test code = MCV) 92.0 80.0-94.0 [facility]xhmfuiDHGBQNFMAQ6317-81-69 18:46:00 Test Item Value Reference Range Interpretation Comments Hct (test code = Hct) 44.5 42.0-54.0 [facility] AreaUtbjlymJSDSBBLKLR9976-53-94 18:46:00 Test Item Value Reference Range Interpretation Comments MCHC (test code = MCHC) 32.4 32.0-36.0 [facility] AreaFdnlvoqWKJOEWPDFH3804-22-28 18:46:00 Test Item Value Reference Range Interpretation Comments [employer] [place]-Hep C Ab (test Negative *NA*(07/22/14 code = [employer] [place]-Hep C 1:46 PM) Ab) [facility] AND [id number] 18:46:00 Test Item Value Reference Range Interpretation Comments UA Urobilinogen (test code = UA <=1.0 mg/dL 0.1-1.0 Urobilinogen) [facility] AND [id number] 18:46:00 Test Item Value Reference Range Interpretation Comments UA Sq Epi (test code = UA Sq Epi) None Seen [facility] AND [id number] 18:46:00 Test Item Value Reference Range Interpretation Comments UA Leuk Est (test Negative (07/22/14 1:46 code = UA Leuk Est) PM) [facility] AND [id number] 18:46:00 Test Item Value Reference Range Interpretation Comments UA Nitrite (test code Negative (07/22/14 1:46 = UA Nitrite) PM) [facility] AND [id number] 18:46:00 Test Item Value Reference Range Interpretation Comments UA Blood (test code = Negative (07/22/14 1:46 UA Blood) PM) [facility] AND [id number] 18:46:00 Test Item Value Reference Range Interpretation Comments UA Ketones (test code = UA Negative mg/dL Ketones) [facility] AND [id number] 18:46:00 Test Item Value Reference Range Interpretation Comments UA Bili (test code = Negative *NA*(07/22/14 UA Bili) 1:46 PM) [facility] AND [id number] 18:46:00 Test Item Value Reference Range Interpretation Comments UA Bacteria (test code = UA Occasional /HPF Bacteria) [facility] AND [id number] 18:46:00 Test Item Value Reference Range Interpretation Comments UA RBC (test code = no gt See_Comment [Automa elizabeth message] The UA RBC) system which ge nerated this result transmit elizabeth reference range : <=2. The reference range was not used to interpr et this result as lukas l/abnormal. [facility] AND [id number] 18:46:00 Test Item Value Reference Range Interpretation Comments UA WBC (test code = 1 See_Comment [Automa elizabeth message] The UA WBC) system which ge nerated this result transmit elizabeth reference range : <=5. The reference range was not used to interpr et this result as lukas l/abnormal. [facility] AND [id number] 18:46:00 Test Item Value Reference Range Interpretation Comments UA Glucose (test code = UA Glucose) 30 mg/dL [facility] AND [id number] 18:46:00 Test Item Value Reference Range Interpretation Comments UA Protein (test code = UA Negative mg/dL Protein) [facility] AND [id number] 18:46:00 Test Item Value Reference Range Interpretation Comments UA pH (test code = UA pH) 6.5 5.0-8.0 [facility] AND [id number] 18:46:00 Test Item Value Reference Range Interpretation Comments UA Turbidity (test code = Clear (07/22/14 1:46 UA Turbidity) PM) [facility] AND [id number] 18:46:00 Test Item Value Reference Range Interpretation Comments UA Spec Grav (test code = UA Spec Grav) 1.010 [facility] AND [id number] 18:46:00 Test Item Value Reference Range Interpretation Comments UA Color (test code = Light Yellow UA Color) *NA*(07/22/14 1:46 PM) [facility] [id number] 18:46:00 Test Item Value Reference Range Interpretation Comments Magnesium Lvl (test code = Magnesium 1.8 1.8-2.4 Lvl) [facility] CenterCwbrunsUNTUPBXWHCZZ7822-83-05 18:46:00 Test Item Value Reference Range Interpretation Comments AGAP (test code = AGAP) 13.2 10.0-20.0 [facility] HospitalAngloqaAHYUBEJWVZSX7160-52-38 18:46:00 Test Item Value Reference Range Interpretation Comments B/C Ratio (test code = B/C Ratio) 18 6-25 [facility] HospitalKzqsqmaZDIGNFESAPMO1023-79-87 18:46:00 Test Item Value Reference Range Interpretation Comments A/G Ratio (test code = A/G Ratio) 1.1 0.7-1.6 [facility] HospitalFfjdphuEWEZJHFQORTU7021-57-00 18:46:00 Test Item Value Reference Range Interpretation Comments Globulin (test code = Globulin) 3.3 2.0-4.0 [facility] HospitalMyiiegbYVCJQBKBYKXS2872-06-06 18:46:00 Test Item Value Reference Range Interpretation Comments eGFR (test code = eGFR) 99 [facility] HospitalRydlvonJVEEZUJXBSEB8247-46-95 18:46:00 Test Item Value Reference Range Interpretation Comments Calcium Lvl (test code = Calcium Lvl) 9.0 8.5-10.5 [facility] HospitalFkxzggeDYTIHSYVAWJR7095-21-94 18:46:00 Test Item Value Reference Range Interpretation Comments Chloride Lvl (test code = Chloride Lvl) 106 95-109 [facility] HospitalFcympsjQYDGHXVUJNZK0464-75-33 18:46:00 Test Item Value Reference Range Interpretation Comments Creatinine Lvl (test code = Creatinine 0.9 0.5-1.4 Lvl) [facility] HospitalEpuplbhWONBBVQXNJEG2839-73-00 18:46:00 Test Item Value Reference Range Interpretation Comments Potassium Lvl (test code = Potassium 4.2 3.5-5.1 Lvl) [facility] HospitalCztpfwqHYKSNSGVDRIA0119-77-31 18:46:00 Test Item Value Reference Range Interpretation Comments Sodium Lvl (test code = Sodium Lvl) 139 135-145 [facility] HospitalYpjbuuqDVFINCDGHRYZ0492-30-73 18:46:00 Test Item Value Reference Range Interpretation Comments CO2 (test code = CO2) 24 24-32 [facility] HospitalWqhncimGMTUACDBTKAF2428-27-51 18:46:00 Test Item Value Reference Range Interpretation Comments BUN (test code = BUN) 16 7-22 [facility] HospitalUfbowhpPAFEVJRHEYLB6033-54-87 18:46:00 Test Item Value Reference Range Interpretation Comments Glucose Lvl (test code = Glucose Lvl) 141 70-99 [facility] HospitalGyzhrfeKIASISUAUPSP8081-69-99 18:46:00 Test Item Value Reference Range Interpretation Comments Albumin Lvl (test code = Albumin Lvl) 3.6 3.5-5.0 [facility] HospitalYaiglcqJHPLDHBYQKMO4325-47-33 18:46:00 Test Item Value Reference Range Interpretation Comments Alk Phos (test code = Alk Phos) 65 39-136 [facility] HospitalBwrgrcbMCKNHCTGFWUE1424-70-13 18:46:00 Test Item Value Reference Range Interpretation Comments Bili Total (test code = Bili Total) 0.3 0.2-1.3 [facility] HospitalVsgzdufBIVGISYFVXTW1873-98-68 18:46:00 Test Item Value Reference Range Interpretation Comments ALT (test code = ALT) 100 See_Comment [Auto mated message] The system which ge nerated this result transmit elizabeth reference range : <=65. The reference range was not used to interpr et this result as lukas l/abnormal. [facility] HospitalRihfjewVDCBPVPGGMTI1674-04-32 18:46:00 Test Item Value Reference Range Interpretation Comments AST (test code = AST) 53 See_Comment [Auto mated message] The system which ge nerated this result transmit elizabeth reference range : <=37. The reference range was not used to interpr et this result as lukas l/abnormal. [facility] HospitalNzndqpyZLPTSMZVZNJP9673-77-39 18:46:00 Test Item Value Reference Range Interpretation Comments Total Protein (test code = Total 6.9 6.4-8.4 Protein) [facility]UpaedxuZYWWGOXLIP2225-65-21 18:46:00 Test Item Value Reference Range Interpretation Comments Eosinophils (test code = 4.2 See_Comment [A utomated message] The Eosinophils) system which ge nerated this result tra nsmitted reference range : <=4.0. The reference r mitra was not used to int erpret this result as normal/abnormal . [facility] SouthQvcylzeLOACRJUHZZ9685-67-55 18:46:00 Test Item Value Reference Range Interpretation Comments Segs (test code = Segs) 56.4 45.0-75.0 [facility] SouthHrrpocvLXPMJHJHBU5178-83-72 18:46:00 Test Item Value Reference Range Interpretation Comments Monocytes (test code = Monocytes) 10.3 2.0-12.0 [facility] SouthGadhkwhFJDMIJCLZV1348-28-78 18:46:00 Test Item Value Reference Range Interpretation Comments Lymphocytes (test code = Lymphocytes) 28.0 20.0-40.0 [facility] SouthFpfkuugERVVLMNXZZ2596-80-53 18:46:00 Test Item Value Reference Range Interpretation Comments Monocytes # (test code 0.5 See_Comment [Aut omated message] The = Monocytes #) system which generated this result tra nsmitted reference range : <=0.8. The reference r mitra was not used to int erpret this result as normal/abnormal . [facility] SouthOichkxfTPTFHWGETS2892-67-40 18:46:00 Test Item Value Reference Range Interpretation Comments Basophils (test code = 1.1 See_Comment [Aut omated message] The Basophils) system which ge nerated this result tra nsmitted reference range : <=1.0. The reference r mitra was not used to int erpret this result as normal/abnormal . [facility] SouthOwcweliXWEHWEPATU8172-66-17 18:46:00 Test Item Value Reference Range Interpretation Comments Lymphocytes # (test code = Lymphocytes 1.5 1.0-5.5 #) [facility] SouthWrklavsBQPHECDTXT1941-77-25 18:46:00 Test Item Value Reference Range Interpretation Comments Segs-Bands # (test code = Segs-Bands #) 2.9 1.5-8.1 [facility] SouthEgjkdptHRWUEJSVLD8571-91-19 18:46:00 Test Item Value Reference Range Interpretation Comments Eosinophils # (test code 0.2 See_Comment [A utomated message] The = Eosinophils #) system whic h generated this result tra nsmitted reference range : <=0.5. The reference r mitra was not used to int erpret this result as normal/abnormal . [facility] SouthVppxqafPHAQOQYYUQ4078-17-21 18:46:00 Test Item Value Reference Range Interpretation Comments Basophils # (test code 0.1 See_Comment [Aut omated message] The = Basophils #) system which generated this result tra nsmitted reference range : <=0.2. The reference r mitra was not used to int erpret this result as normal/abnormal . [facility] SouthFvdroopHENSUSVXDF4502-23-18 18:46:00 Test Item Value Reference Range Interpretation Comments PT (test code = PT) 11.2 s 12.0-14.7 [facility] SouthHircuuqSEMRMRNYQW8511-36-33 18:46:00 Test Item Value Reference Range Interpretation Comments INR (test code = INR) 0.82 0.85-1.17 [facility] SouthIpmjsvmACBQLEULUL3245-33-74 18:46:00 Test Item Value Reference Range Interpretation Comments PTT (test code = PTT) 28.6 s 22.9-35.8 [facility] SouthQdnstdqGAHQHDFHNK9707-86-95 18:46:00 Test Item Value Reference Range Interpretation Comments MPV (test code = MPV) 8.1 7.4-10.4 [facility] SouthJthnjodWOVPUMTAZU8861-77-36 18:46:00 Test Item Value Reference Range Interpretation Comments Platelet (test code = Platelet) 301 133-450 [facility] SouthMwsfvmbRIIBKOWWNA0649-90-77 18:46:00 Test Item Value Reference Range Interpretation Comments RDW (test code = RDW) 14.5 11.5-14.5 [facility] SouthVufmxncKUTYVMDGSY8808-68-02 18:46:00 Test Item Value Reference Range Interpretation Comments RBC (test code = RBC) 4.84 4.70-6.10 [facility] SouthNoevvsiLKFWAJNEJC2730-28-25 18:46:00 Test Item Value Reference Range Interpretation Comments Hgb (test code = Hgb) 14.4 14.0-18.0 [facility] SouthKzyrbtsIBRKZMVEHY1544-76-61 18:46:00 Test Item Value Reference Range Interpretation Comments WBC (test code = WBC) 5.2 3.7-10.4 [facility] SouthNbbpjthDPUGOFHYXI6021-43-17 18:46:00 Test Item Value Reference Range Interpretation Comments MCH (test code = MCH) 29.8 pg 27.0-31.0 [facility] SouthLkwuzydMCDSEVVUMJ4814-84-10 18:46:00 Test Item Value Reference Range Interpretation Comments MCV (test code = MCV) 92.0 80.0-94.0 [facility] SouthMuvhdzwMMBTRONRVN6172-73-43 18:46:00 Test Item Value Reference Range Interpretation Comments Hct (test code = Hct) 44.5 42.0-54.0 [facility] SouthAgduxzyRWJXCTWKGY7675-37-07 18:46:00 Test Item Value Reference Range Interpretation Comments MCHC (test code = MCHC) 32.4 32.0-36.0 [facility] AreaGptnmhqMCSQLOOJJP0441-91-26 18:46:00 Test Item Value Reference Range Interpretation Comments [employer] [place]-Hep C Ab (test Negative *NA*(07/22/14 code = [employer] [place]-Hep C 1:46 PM) Ab) [facility] AND [id number] 18:46:00 Test Item Value Reference Range Interpretation Comments UA Urobilinogen (test code = UA <=1.0 mg/dL 0.1-1.0 Urobilinogen) [facility] AND [id number] 18:46:00 Test Item Value Reference Range Interpretation Comments UA Sq Epi (test code = UA Sq Epi) None Seen [facility] AND [id number] 18:46:00 Test Item Value Reference Range Interpretation Comments UA Leuk Est (test Negative (07/22/14 1:46 code = UA Leuk Est) PM) [facility] AND [id number] 18:46:00 Test Item Value Reference Range Interpretation Comments UA Nitrite (test code Negative (07/22/14 1:46 = UA Nitrite) PM) [facility] AND [id number] 18:46:00 Test Item Value Reference Range Interpretation Comments UA Blood (test code = Negative (07/22/14 1:46 UA Blood) PM) [facility] AND [id number] 18:46:00 Test Item Value Reference Range Interpretation Comments UA Ketones (test code = UA Negative mg/dL Ketones) [facility] AND [id number] 18:46:00 Test Item Value Reference Range Interpretation Comments UA Bili (test code = Negative *NA*(07/22/14 UA Bili) 1:46 PM) [facility] AND [id number] 18:46:00 Test Item Value Reference Range Interpretation Comments UA Bacteria (test code = UA Occasional /HPF Bacteria) [facility] AND [id number] 18:46:00 Test Item Value Reference Range Interpretation Comments UA RBC (test code = no gt See_Comment [Automa elizabeth message] The UA RBC) system which ge nerated this result transmit elizabeth reference range : <=2. The reference range was not used to interpr et this result as lukas l/abnormal. [facility] AND [id number] 18:46:00 Test Item Value Reference Range Interpretation Comments UA WBC (test code = 1 See_Comment [Automa elizabeth message] The UA WBC) system which ge nerated this result transmit elizabeth reference range : <=5. The reference range was not used to interpr et this result as lukas l/abnormal. [facility] AND [id number] 18:46:00 Test Item Value Reference Range Interpretation Comments UA Glucose (test code = UA Glucose) 30 mg/dL [facility] AND [id number] 18:46:00 Test Item Value Reference Range Interpretation Comments UA Protein (test code = UA Negative mg/dL Protein) [facility] AND [id number] 18:46:00 Test Item Value Reference Range Interpretation Comments UA pH (test code = UA pH) 6.5 5.0-8.0 [facility] AND [id number] 18:46:00 Test Item Value Reference Range Interpretation Comments UA Turbidity (test code = Clear (07/22/14 1:46 UA Turbidity) PM) [facility] AND [id number] 18:46:00 Test Item Value Reference Range Interpretation Comments UA Spec Grav (test code = UA Spec Grav) 1.010 [facility] AND [id number] 18:46:00 Test Item Value Reference Range Interpretation Comments UA Color (test code = Light Yellow UA Color) *NA*(07/22/14 1:46 PM) [facility] [id number] 18:46:00 Test Item Value Reference Range Interpretation Comments Magnesium Lvl (test code = Magnesium 1.8 1.8-2.4 Lvl) [facility]pzagtrPRDAADPZNXLJ5792-26-21 18:46:00 Test Item Value Reference Range Interpretation Comments AGAP (test code = AGAP) 13.2 10.0-20.0 [facility] HospitalArpywpgJMKBCEMXADSN3708-42-28 18:46:00 Test Item Value Reference Range Interpretation Comments B/C Ratio (test code = B/C Ratio) 18 6-25 [facility] HospitalRjdzrbxTRMFADZVESLB9983-63-86 18:46:00 Test Item Value Reference Range Interpretation Comments A/G Ratio (test code = A/G Ratio) 1.1 0.7-1.6 [facility] HospitalIjcpyjwUMTEWNBVWONG5326-65-51 18:46:00 Test Item Value Reference Range Interpretation Comments Globulin (test code = Globulin) 3.3 2.0-4.0 [facility] HospitalFatqpezPMWYPAZGTFID2969-03-14 18:46:00 Test Item Value Reference Range Interpretation Comments eGFR (test code = eGFR) 99 [facility] HospitalOksrryzZZDQRBJTUBVU9968-20-45 18:46:00 Test Item Value Reference Range Interpretation Comments Calcium Lvl (test code = Calcium Lvl) 9.0 8.5-10.5 [facility] HospitalPmcluvbDRLISSLEUZOD1665-16-08 18:46:00 Test Item Value Reference Range Interpretation Comments Chloride Lvl (test code = Chloride Lvl) 106 95-109 [facility] HospitalJbovnghYMSVHIWFSPIX7511-54-11 18:46:00 Test Item Value Reference Range Interpretation Comments Creatinine Lvl (test code = Creatinine 0.9 0.5-1.4 Lvl) [facility] HospitalZbnugtiTFKNFVNMNIWO5066-44-28 18:46:00 Test Item Value Reference Range Interpretation Comments Potassium Lvl (test code = Potassium 4.2 3.5-5.1 Lvl) [facility] HospitalPragcwpCKLYSATNBJQF5858-71-59 18:46:00 Test Item Value Reference Range Interpretation Comments Sodium Lvl (test code = Sodium Lvl) 139 135-145 [facility] HospitalEayaiomAXHTFKZDEXEN4973-61-56 18:46:00 Test Item Value Reference Range Interpretation Comments CO2 (test code = CO2) 24 24-32 [facility] HospitalPjyxxvoYPYVUSZPIZYT4160-37-84 18:46:00 Test Item Value Reference Range Interpretation Comments BUN (test code = BUN) 16 7-22 [facility] HospitalYhrxsmlCOGNCRNIVHKN9163-41-92 18:46:00 Test Item Value Reference Range Interpretation Comments Glucose Lvl (test code = Glucose Lvl) 141 70-99 [facility] HospitalEfvqmcsWMCFXWZGRTGC2299-06-80 18:46:00 Test Item Value Reference Range Interpretation Comments Albumin Lvl (test code = Albumin Lvl) 3.6 3.5-5.0 [facility] HospitalXlgxdvbVKFNHIPRICMW2464-72-54 18:46:00 Test Item Value Reference Range Interpretation Comments Alk Phos (test code = Alk Phos) 65 39-136 [facility] HospitalNdmihfcOJTUTBGUTGQI6551-56-84 18:46:00 Test Item Value Reference Range Interpretation Comments Bili Total (test code = Bili Total) 0.3 0.2-1.3 [facility] HospitalUgxcjiuNYDBMRUOYDDS4601-01-80 18:46:00 Test Item Value Reference Range Interpretation Comments ALT (test code = ALT) 100 See_Comment [Auto mated message] The system which ge nerated this result transmit elizabeth reference range : <=65. The reference range was not used to interpr et this result as lukas l/abnormal. [facility] HospitalFgaaudxMJNGMTCZVEJB4717-93-54 18:46:00 Test Item Value Reference Range Interpretation Comments AST (test code = AST) 53 See_Comment [Auto mated message] The system which ge nerated this result transmit elizabeth reference range : <=37. The reference range was not used to interpr et this result as lukas l/abnormal. [facility] HospitalFqlciymDTEDZNEPIULG1509-15-87 18:46:00 Test Item Value Reference Range Interpretation Comments Total Protein (test code = Total 6.9 6.4-8.4 Protein) [facility]KdsikauSNMTDQHINL2439-50-82 18:46:00 Test Item Value Reference Range Interpretation Comments Eosinophils (test code = 4.2 See_Comment [A utomated message] The Eosinophils) system which ge nerated this result tra nsmitted reference range : <=4.0. The reference r mitra was not used to int erpret this result as normal/abnormal . [facility] SouthEvyagasACLCKEERVX8827-28-21 18:46:00 Test Item Value Reference Range Interpretation Comments Segs (test code = Segs) 56.4 45.0-75.0 [facility] SouthCxxgzmmXBTADMNLMO2520-14-18 18:46:00 Test Item Value Reference Range Interpretation Comments Monocytes (test code = Monocytes) 10.3 2.0-12.0 [facility] SouthPilvvyaBEDREXAEUK6400-66-02 18:46:00 Test Item Value Reference Range Interpretation Comments Lymphocytes (test code = Lymphocytes) 28.0 20.0-40.0 [facility] SouthQigoawqOFDCAKKHMN6269-12-51 18:46:00 Test Item Value Reference Range Interpretation Comments Monocytes # (test code 0.5 See_Comment [Aut omated message] The = Monocytes #) system which generated this result tra nsmitted reference range : <=0.8. The reference r mitra was not used to int erpret this result as normal/abnormal . [facility] SouthNltizfnQOSKHXIFEO5059-41-90 18:46:00 Test Item Value Reference Range Interpretation Comments Basophils (test code = 1.1 See_Comment [Aut omated message] The Basophils) system which ge nerated this result tra nsmitted reference range : <=1.0. The reference r mitra was not used to int erpret this result as normal/abnormal . [facility] SouthVkobsmwPTHPRYPHRY3027-70-22 18:46:00 Test Item Value Reference Range Interpretation Comments Lymphocytes # (test code = Lymphocytes 1.5 1.0-5.5 #) [facility] SouthHmrgtqvAUEDMNYGDX1964-29-79 18:46:00 Test Item Value Reference Range Interpretation Comments Segs-Bands # (test code = Segs-Bands #) 2.9 1.5-8.1 [facility] SouthEymklfuVKDULFZTMN9947-07-84 18:46:00 Test Item Value Reference Range Interpretation Comments Eosinophils # (test code 0.2 See_Comment [A utomated message] The = Eosinophils #) system whic h generated this result tra nsmitted reference range : <=0.5. The reference r mitra was not used to int erpret this result as normal/abnormal . [facility] SouthGsqqhqnFUUWVIKWGW0316-93-11 18:46:00 Test Item Value Reference Range Interpretation Comments Basophils # (test code 0.1 See_Comment [Aut omated message] The = Basophils #) system which generated this result tra nsmitted reference range : <=0.2. The reference r mitra was not used to int erpret this result as normal/abnormal . [facility] SouthVxgxtshUFIKSAONLA2706-34-26 18:46:00 Test Item Value Reference Range Interpretation Comments PT (test code = PT) 11.2 s 12.0-14.7 [facility] SouthCgbtwsjLXJLYCYKWT4607-36-39 18:46:00 Test Item Value Reference Range Interpretation Comments INR (test code = INR) 0.82 0.85-1.17 [facility] SouthFywoqadXRJCYLPTSQ2524-07-73 18:46:00 Test Item Value Reference Range Interpretation Comments PTT (test code = PTT) 28.6 s 22.9-35.8 [facility] SouthLtxbvppRRXMGHFRJN2234-47-42 18:46:00 Test Item Value Reference Range Interpretation Comments MPV (test code = MPV) 8.1 7.4-10.4 [facility] SouthFbbsdhcJDCSHMJJAA5118-04-46 18:46:00 Test Item Value Reference Range Interpretation Comments Platelet (test code = Platelet) 301 133-450 [facility]OydqifqAQBXJAOUJO9688-83-15 18:46:00 Test Item Value Reference Range Interpretation Comments RDW (test code = RDW) 14.5 11.5-14.5 [facility] HospitalCyebmmqMTTWONUFMY5029-81-74 18:46:00 Test Item Value Reference Range Interpretation Comments RBC (test code = RBC) 4.84 4.70-6.10 [facility] HospitalFeqcbjgQVFQEGMAUI9877-75-66 18:46:00 Test Item Value Reference Range Interpretation Comments Hgb (test code = Hgb) 14.4 14.0-18.0 [facility] SouthHllicxzYXJBRYMTLE0329-80-83 18:46:00 Test Item Value Reference Range Interpretation Comments WBC (test code = WBC) 5.2 3.7-10.4 [facility] SouthNeeodjyIGCXSUZMWJ6031-37-56 18:46:00 Test Item Value Reference Range Interpretation Comments MCH (test code = MCH) 29.8 pg 27.0-31.0 [facility] SouthXykygdfRBMRPCLVLA1902-53-11 18:46:00 Test Item Value Reference Range Interpretation Comments MCV (test code = MCV) 92.0 80.0-94.0 [facility] HospitalIgylksfEBZXLYXCMG4383-72-37 18:46:00 Test Item Value Reference Range Interpretation Comments Hct (test code = Hct) 44.5 42.0-54.0 [facility] HospitalQnyuauuAEUHURBIMG3171-63-24 18:46:00 Test Item Value Reference Range Interpretation Comments MCHC (test code = MCHC) 32.4 32.0-36.0 [facility] AreaRvkirxlECANOGHQAB8940-54-08 18:46:00 Test Item Value Reference Range Interpretation Comments [place]-Hep C Ab (test Negative *NA*(07/22/14 code = [place]-Hep C 1:46 PM) Ab) [facility] AND [id number] 18:46:00 Test Item Value Reference Range Interpretation Comments UA Urobilinogen (test code = UA <=1.0 mg/dL 0.1-1.0 Urobilinogen) [facility] [id number] 18:46:00 Test Item Value Reference Range Interpretation Comments UA Sq Epi (test code = UA Sq Epi) None Seen [facility] AND [id number] 18:46:00 Test Item Value Reference Range Interpretation Comments UA Leuk Est (test Negative (07/22/14 1:46 code = UA Leuk Est) PM) [facility] AND [id number] 18:46:00 Test Item Value Reference Range Interpretation Comments UA Nitrite (test code Negative (07/22/14 1:46 = UA Nitrite) PM) [facility] AND [id number] 18:46:00 Test Item Value Reference Range Interpretation Comments UA Blood (test code = Negative (07/22/14 1:46 UA Blood) PM) [facility] AND [id number] 18:46:00 Test Item Value Reference Range Interpretation Comments UA Ketones (test code = UA Negative mg/dL Ketones) [facility] AND [id number] 18:46:00 Test Item Value Reference Range Interpretation Comments UA Bili (test code = Negative *NA*(07/22/14 UA Bili) 1:46 PM) [facility] AND [id number] 18:46:00 Test Item Value Reference Range Interpretation Comments UA Bacteria (test code = UA Occasional /HPF Bacteria) [facility] AND [id number] 18:46:00 Test Item Value Reference Range Interpretation Comments UA RBC (test code = no gt See_Comment [Automa elizabeth message] The UA RBC) system which ge nerated this result transmit elizabeth reference range : <=2. The reference range was not used to interpr et this result as lukas l/abnormal. [facility] AND [id number] 18:46:00 Test Item Value Reference Range Interpretation Comments UA WBC (test code = 1 See_Comment [Automa elizabeth message] The UA WBC) system which ge nerated this result transmit elizabeth reference range : <=5. The reference range was not used to interpr et this result as lukas l/abnormal. [facility] AND [id number] 18:46:00 Test Item Value Reference Range Interpretation Comments UA Glucose (test code = UA Glucose) 30 mg/dL [facility] AND [id number] 18:46:00 Test Item Value Reference Range Interpretation Comments UA Protein (test code = UA Negative mg/dL Protein) [facility] AND [id number] 18:46:00 Test Item Value Reference Range Interpretation Comments UA pH (test code = UA pH) 6.5 5.0-8.0 [facility] [id number] 18:46:00 Test Item Value Reference Range Interpretation Comments UA Turbidity (test code = Clear (07/22/14 1:46 [facility]A Turbidity) PM) [facility] [id number] 18:46:00 Test Item Value Reference Range Interpretation Comments UA Spec Grav (test code = UA Spec Grav) 1.010 [facility] AND [id number] 18:46:00 Test Item Value Reference Range Interpretation Comments UA Color (test code = Light Yellow UA Color) *NA*(07/22/14 1:46 PM) [facility]annCHEM [id number] 18:46:00 Test Item Value Reference Range Interpretation Comments Magnesium Lvl (test code = Magnesium 1.8 1.8-2.4 Lvl) [facility]VbxadujACPSXSDTXTLR5793-75-76 18:46:00 Test Item Value Reference Range Interpretation Comments AGAP (test code = AGAP) 13.2 10.0-20.0 [facility] HospitalBqaihjsWCOWQBCQQOWY5099-78-28 18:46:00 Test Item Value Reference Range Interpretation Comments B/C Ratio (test code = B/C Ratio) 18 6-25 [facility] HospitalXnahrwlSXDEMFEPMCAW5142-78-73 18:46:00 Test Item Value Reference Range Interpretation Comments A/G Ratio (test code = A/G Ratio) 1.1 0.7-1.6 [facility] HospitalPtdslpnMKOSCCKAVUTG3450-36-40 18:46:00 Test Item Value Reference Range Interpretation Comments Globulin (test code = Globulin) 3.3 2.0-4.0 [facility] RegionalNbugcfqTJGDHEQRIAGU3308-15-63 18:46:00 Test Item Value Reference Range Interpretation Comments eGFR (test code = eGFR) 99 [facility] HospitalFduuhfvFHTSLHKWKVOZ6969-76-12 18:46:00 Test Item Value Reference Range Interpretation Comments Calcium Lvl (test code = Calcium Lvl) 9.0 8.5-10.5 [facility] RegionalSfujjvpOUWFUDPGNKZD3500-32-64 18:46:00 Test Item Value Reference Range Interpretation Comments Chloride Lvl (test code = Chloride Lvl) 106 95-109 [facility] HospitalLrmoagaWAPYPXVHRLJH1688-54-74 18:46:00 Test Item Value Reference Range Interpretation Comments Creatinine Lvl (test code = Creatinine 0.9 0.5-1.4 Lvl) [facility] HospitalZvlhldiEPJCUNQXSGKS8058-78-08 18:46:00 Test Item Value Reference Range Interpretation Comments Potassium Lvl (test code = Potassium 4.2 3.5-5.1 Lvl) [facility] HospitalEegbcieGRMPVLSEQPEV6280-53-65 18:46:00 Test Item Value Reference Range Interpretation Comments Sodium Lvl (test code = Sodium Lvl) 139 135-145 [facility] HospitalGljgaemSANVBPCPWIEL7729-74-58 18:46:00 Test Item Value Reference Range Interpretation Comments CO2 (test code = CO2) 24 24-32 [facility] HospitalPygwrpaZQAUMGIJIGWL4790-34-37 18:46:00 Test Item Value Reference Range Interpretation Comments BUN (test code = BUN) 16 7-22 [facility] HospitalUpradomZJBUDABKFCQC4032-65-95 18:46:00 Test Item Value Reference Range Interpretation Comments Glucose Lvl (test code = Glucose Lvl) 141 70-99 [facility] HospitalDzklmdcXYLKLZFGEIRY6849-11-93 18:46:00 Test Item Value Reference Range Interpretation Comments Albumin Lvl (test code = Albumin Lvl) 3.6 3.5-5.0 [facility] HospitalKqxvkyfFDPHAKMBBZGY9533-03-48 18:46:00 Test Item Value Reference Range Interpretation Comments Alk Phos (test code = Alk Phos) 65 39-136 [facility] HospitalYtiybefSXSDFUKXUHDC4958-44-58 18:46:00 Test Item Value Reference Range Interpretation Comments Bili Total (test code = Bili Total) 0.3 0.2-1.3 [facility] HospitalUutwhygZKUJOWQSUSCE3638-14-93 18:46:00 Test Item Value Reference Range Interpretation Comments ALT (test code = ALT) 100 See_Comment [Auto mated message] The system which ge nerated this result transmit elizabeth reference range : <=65. The reference range was not used to interpr et this result as lukas l/abnormal. [facility] HospitalMxcqmvmAWTLDRHYKXAT7087-71-02 18:46:00 Test Item Value Reference Range Interpretation Comments AST (test code = AST) 53 See_Comment [Auto mated message] The system which ge nerated this result transmit elizabeth reference range : <=37. The reference range was not used to interpr et this result as lukas l/abnormal. [facility] HospitalAznvadhUJVNBQBZZYGM5890-50-06 18:46:00 Test Item Value Reference Range Interpretation Comments Total Protein (test code = Total 6.9 6.4-8.4 Protein) [facility]SmtbfsqFHLIDFQIWU7108-09-37 18:46:00 Test Item Value Reference Range Interpretation Comments Eosinophils (test code = 4.2 See_Comment [A utomated message] The Eosinophils) system which ge nerated this result tra nsmitted reference range : <=4.0. The reference r mitra was not used to int erpret this result as normal/abnormal . [facility] SouthAnwtymxOJVUSVODVO5001-61-58 18:46:00 Test Item Value Reference Range Interpretation Comments Segs (test code = Segs) 56.4 45.0-75.0 [facility] SouthLtcebcaOIOZCGUYTU5543-75-42 18:46:00 Test Item Value Reference Range Interpretation Comments Monocytes (test code = Monocytes) 10.3 2.0-12.0 [facility] SouthDmmkiooVXXACHYPVV4625-98-99 18:46:00 Test Item Value Reference Range Interpretation Comments Lymphocytes (test code = Lymphocytes) 28.0 20.0-40.0 [facility] SouthQouqjgzARJVAUXCCB8158-45-86 18:46:00 Test Item Value Reference Range Interpretation Comments Monocytes # (test code 0.5 See_Comment [Aut omated message] The = Monocytes #) system which generated this result tra nsmitted reference range : <=0.8. The reference r mitra was not used to int erpret this result as normal/abnormal . [facility] SouthJolphhjFRBOIZADEW4217-58-27 18:46:00 Test Item Value Reference Range Interpretation Comments Basophils (test code = 1.1 See_Comment [Aut omated message] The Basophils) system which ge nerated this result tra nsmitted reference range : <=1.0. The reference r mitra was not used to int erpret this result as normal/abnormal . [facility] SouthVsusqujEILQQUEJPY1347-08-57 18:46:00 Test Item Value Reference Range Interpretation Comments Lymphocytes # (test code = Lymphocytes 1.5 1.0-5.5 #) [facility] SouthRudznxcLCQTOIHUMP8366-23-05 18:46:00 Test Item Value Reference Range Interpretation Comments Segs-Bands # (test code = Segs-Bands #) 2.9 1.5-8.1 [facility] SouthTrolxadPKGXRYNORY9026-31-25 18:46:00 Test Item Value Reference Range Interpretation Comments Eosinophils # (test code 0.2 See_Comment [A utomated message] The = Eosinophils #) system whic h generated this result tra nsmitted reference range : <=0.5. The reference r mitra was not used to int erpret this result as normal/abnormal . [facility] SouthRprhcuyGXODHWKFUY8929-98-08 18:46:00 Test Item Value Reference Range Interpretation Comments Basophils # (test code 0.1 See_Comment [Aut omated message] The = Basophils #) system which generated this result tra nsmitted reference range : <=0.2. The reference r mitra was not used to int erpret this result as normal/abnormal . [facility] SouthEclbduuFTUMXCZDWB7987-97-13 18:46:00 Test Item Value Reference Range Interpretation Comments PT (test code = PT) 11.2 s 12.0-14.7 [facility] SouthBbutnhvOYZZXROUST7901-09-97 18:46:00 Test Item Value Reference Range Interpretation Comments INR (test code = INR) 0.82 0.85-1.17 [facility] SouthTxfkwnuRYMOCEWAYL4344-75-76 18:46:00 Test Item Value Reference Range Interpretation Comments PTT (test code = PTT) 28.6 s 22.9-35.8 [facility] SouthWnfnmwjEYEIPEERJO2567-07-82 18:46:00 Test Item Value Reference Range Interpretation Comments MPV (test code = MPV) 8.1 7.4-10.4 [facility] SouthEjeatdkHSQLFAQKTD0180-20-10 18:46:00 Test Item Value Reference Range Interpretation Comments Platelet (test code = Platelet) 301 133-450 [facility] SouthJmwzfpqQVGYKJQZBA0118-53-23 18:46:00 Test Item Value Reference Range Interpretation Comments RDW (test code = RDW) 14.5 11.5-14.5 [facility] SouthCsycfvyWIQUMUJVES3263-80-58 18:46:00 Test Item Value Reference Range Interpretation Comments RBC (test code = RBC) 4.84 4.70-6.10 [facility] SouthUrpzexgPKQUGQVTAY7039-19-18 18:46:00 Test Item Value Reference Range Interpretation Comments Hgb (test code = Hgb) 14.4 14.0-18.0 [facility] SouthPzcqnqkMHKDPMGYDH3662-59-32 18:46:00 Test Item Value Reference Range Interpretation Comments WBC (test code = WBC) 5.2 3.7-10.4 [facility] HcpacwcXGHUOEHAEY0052-54-57 18:46:00 Test Item Value Reference Range Interpretation Comments MCH (test code = MCH) 29.8 pg 27.0-31.0 [facility] KfbymnmGUZKKZIQCX6470-52-07 18:46:00 Test Item Value Reference Range Interpretation Comments MCV (test code = MCV) 92.0 80.0-94.0 [facility] AdiliskMEZPRLCSOI2436-73-75 18:46:00 Test Item Value Reference Range Interpretation Comments Hct (test code = Hct) 44.5 42.0-54.0 [facility] CnlhhgvZLGSUMLKIS9167-31-72 18:46:00 Test Item Value Reference Range Interpretation Comments MCHC (test code = MCHC) 32.4 32.0-36.0 [facility] AreaXkmvezjLXCHGFDZIR9042-17-62 18:46:00 Test Item Value Reference Range Interpretation Comments [employer] [place]-Hep C Ab (test Negative *NA*(07/22/14 code = [place]-Hep C 1:46 PM) Ab) [facility] AND [id number] 18:46:00 Test Item Value Reference Range Interpretation Comments UA Urobilinogen (test code = UA <=1.0 mg/dL 0.1-1.0 Urobilinogen) [facility] AND [id number] 18:46:00 Test Item Value Reference Range Interpretation Comments UA Sq Epi (test code = UA Sq Epi) None Seen [facility] AND [id number] 18:46:00 Test Item Value Reference Range Interpretation Comments UA Leuk Est (test Negative (07/22/14 1:46 code = UA Leuk Est) PM) [facility] AND [id number] 18:46:00 Test Item Value Reference Range Interpretation Comments UA Nitrite (test code Negative (07/22/14 1:46 = UA Nitrite) PM) [facility] AND [id number] 18:46:00 Test Item Value Reference Range Interpretation Comments UA Blood (test code = Negative (07/22/14 1:46 UA Blood) PM) [facility] AND [id number] 18:46:00 Test Item Value Reference Range Interpretation Comments UA Ketones (test code = UA Negative mg/dL Ketones) [facility] AND [id number] 18:46:00 Test Item Value Reference Range Interpretation Comments UA Bili (test code = Negative *NA*(07/22/14 UA Bili) 1:46 PM) [facility] AND [id number] 18:46:00 Test Item Value Reference Range Interpretation Comments UA Bacteria (test code = UA Occasional /HPF Bacteria) [facility] AND [id number] 18:46:00 Test Item Value Reference Range Interpretation Comments UA RBC (test code = no gt See_Comment [Automa elizabeth message] The UA RBC) system which ge nerated this result transmit elizabeth reference range : <=2. The reference range was not used to interpr et this result as lukas l/abnormal. [facility] [facility] AND [id number] 18:46:00 Test Item Value Reference Range Interpretation Comments UA WBC (test code = 1 See_Comment [Automa elizabeth message] The UA WBC) system which ge nerated this result transmit elizabeth reference range : <=5. The reference range was not used to interpr et this result as lukas l/abnormal. [facility] AND [id number] 18:46:00 Test Item Value Reference Range Interpretation Comments UA Glucose (test code = UA Glucose) 30 mg/dL [facility] AND [id number] 18:46:00 Test Item Value Reference Range Interpretation Comments UA Protein (test code = UA Negative mg/dL Protein) [facility] AND [id number] 18:46:00 Test Item Value Reference Range Interpretation Comments UA pH (test code = UA pH) 6.5 5.0-8.0 [facility] AND [id number] 18:46:00 Test Item Value Reference Range Interpretation Comments UA Turbidity (test code = Clear (07/22/14 1:46 UA Turbidity) PM) [facility] AND [id number] 18:46:00 Test Item Value Reference Range Interpretation Comments UA Spec Grav (test code = UA Spec Grav) 1.010 [facility] AND [id number] 18:46:00 Test Item Value Reference Range Interpretation Comments UA Color (test code = Light Yellow UA Color) *NA*(07/22/14 1:46 PM) [facility]2015-06-09 18:46:00 Test Item Value Reference Range Interpretation Comments Magnesium Lvl (test code = Magnesium 1.8 1.8-2.4 Lvl) [facility]aysuJTHEFZASGAVP4774-45-32 18:46:00 Test Item Value Reference Range Interpretation Comments AGAP (test code = AGAP) 13.2 10.0-20.0 [facility] HospitalLiefvnjWLUWNBRBIOIL7982-50-23 18:46:00 Test Item Value Reference Range Interpretation Comments B/C Ratio (test code = B/C Ratio) 18 6-25 [facility] HospitalJerhjpgYRHTYUNBYUET8839-99-07 18:46:00 Test Item Value Reference Range Interpretation Comments A/G Ratio (test code = A/G Ratio) 1.1 0.7-1.6 [facility] HospitalIspxqgqVOPBDJKZKPOO4065-60-33 18:46:00 Test Item Value Reference Range Interpretation Comments Globulin (test code = Globulin) 3.3 2.0-4.0 [facility] HospitalGjzeyawWAGOCZGHAJYQ0709-23-52 18:46:00 Test Item Value Reference Range Interpretation Comments eGFR (test code = eGFR) 99 [facility] HospitalLjlhessAAOEUVHPELKD2899-39-87 18:46:00 Test Item Value Reference Range Interpretation Comments Calcium Lvl (test code = Calcium Lvl) 9.0 8.5-10.5 [facility] HospitalLkspzppOYFEWUMRFMVZ3220-56-77 18:46:00 Test Item Value Reference Range Interpretation Comments Chloride Lvl (test code = Chloride Lvl) 106 95-109 [facility] HospitalYvvpfzvOPSEYQJRBTKC2192-85-83 18:46:00 Test Item Value Reference Range Interpretation Comments Creatinine Lvl (test code = Creatinine 0.9 0.5-1.4 Lvl) [facility] HospitalFhjrsmiXEQYSQBMTRCC4707-67-15 18:46:00 Test Item Value Reference Range Interpretation Comments Potassium Lvl (test code = Potassium 4.2 3.5-5.1 Lvl) [facility] HospitalGcaymyfLAUFFQASXZKL5149-45-32 18:46:00 Test Item Value Reference Range Interpretation Comments Sodium Lvl (test code = Sodium Lvl) 139 135-145 [facility]IgjfuxqHRXUFSAGZVHK7230-71-19 18:46:00 Test Item Value Reference Range Interpretation Comments CO2 (test code = CO2) 24 24-32 [facility] HospitalUhhwxnqVOXXSZSKCION4275-87-13 18:46:00 Test Item Value Reference Range Interpretation Comments BUN (test code = BUN) 16 7-22 [facility] HospitalIwsqfkiXNWCZPXVHXYF3638-13-86 18:46:00 Test Item Value Reference Range Interpretation Comments Glucose Lvl (test code = Glucose Lvl) 141 70-99 [facility] HospitalVdbfaapNVFNJEAETUGL1859-74-90 18:46:00 Test Item Value Reference Range Interpretation Comments Albumin Lvl (test code = Albumin Lvl) 3.6 3.5-5.0 [facility] HospitalHclzbxuNVKAVPJPYLDQ5545-97-56 18:46:00 Test Item Value Reference Range Interpretation Comments Alk Phos (test code = Alk Phos) 65 39-136 [facility] HospitalRnxsqntLLCBWKCQIWVF3094-39-95 18:46:00 Test Item Value Reference Range Interpretation Comments Bili Total (test code = Bili Total) 0.3 0.2-1.3 [facility] HospitalJzqerinKZLJXCGXFPNX5200-05-09 18:46:00 Test Item Value Reference Range Interpretation Comments ALT (test code = ALT) 100 See_Comment [Auto mated message] The system which ge nerated this result transmit elizabeth reference range : <=65. The reference range was not used to interpr et this result as lukas l/abnormal. [facility] HospitalYubkjsxWOJUWNSDVDBZ8964-48-51 18:46:00 Test Item Value Reference Range Interpretation Comments AST (test code = AST) 53 See_Comment [Auto mated message] The system which ge nerated this result transmit elizabeth reference range : <=37. The reference range was not used to interpr et this result as lukas l/abnormal. [facility] HospitalCfzmqjpQXMQTFUGIERT9059-03-03 18:46:00 Test Item Value Reference Range Interpretation Comments Total Protein (test code = Total 6.9 6.4-8.4 Protein) [facility]qtekxrZQZCQUZAFV8337-26-02 18:46:00 Test Item Value Reference Range Interpretation Comments Eosinophils (test code = 4.2 See_Comment [A utomated message] The Eosinophils) system which ge nerated this result tra nsmitted reference range : <=4.0. The reference r mitra was not used to int erpret this result as normal/abnormal . [facility] SouthAukbmrhCSMJXQNBBR8317-00-31 18:46:00 Test Item Value Reference Range Interpretation Comments Segs (test code = Segs) 56.4 45.0-75.0 [facility] SouthZrwuaolEVSRIJACJQ4368-60-93 18:46:00 Test Item Value Reference Range Interpretation Comments Monocytes (test code = Monocytes) 10.3 2.0-12.0 [facility] SouthYrndupsXYSTPFQQGU3646-47-04 18:46:00 Test Item Value Reference Range Interpretation Comments Lymphocytes (test code = Lymphocytes) 28.0 20.0-40.0 [facility] SouthVshygnnGSVGFTPCYM0368-82-25 18:46:00 Test Item Value Reference Range Interpretation Comments Monocytes # (test code 0.5 See_Comment [Aut omated message] The = Monocytes #) system which generated this result tra nsmitted reference range : <=0.8. The reference r mitra was not used to int erpret this result as normal/abnormal . [facility] SouthHqunmgfCYDETRQJTH4414-71-46 18:46:00 Test Item Value Reference Range Interpretation Comments Basophils (test code = 1.1 See_Comment [Aut omated message] The Basophils) system which ge nerated this result tra nsmitted reference range : <=1.0. The reference r mitra was not used to int erpret this result as normal/abnormal . [facility] SouthYqomxniPEPQAWNXJR2282-13-60 18:46:00 Test Item Value Reference Range Interpretation Comments Lymphocytes # (test code = Lymphocytes 1.5 1.0-5.5 #) [facility]EeiopjlQINDUNYWZO0266-19-39 18:46:00 Test Item Value Reference Range Interpretation Comments Segs-Bands # (test code = Segs-Bands #) 2.9 1.5-8.1 [facility] SouthBagwbtxLBWVXSLOZC4032-30-52 18:46:00 Test Item Value Reference Range Interpretation Comments Eosinophils # (test code 0.2 See_Comment [A utomated message] The = Eosinophils #) system whic h generated this result tra nsmitted reference range : <=0.5. The reference r mitra was not used to int erpret this result as normal/abnormal . [facility] SouthCmxsxsgEBUPIYLSWK4537-16-67 18:46:00 Test Item Value Reference Range Interpretation Comments Basophils # (test code 0.1 See_Comment [Aut omated message] The = Basophils #) system which generated this result tra nsmitted reference range : <=0.2. The reference r mitra was not used to int erpret this result as normal/abnormal . [facility] SouthAjdbjaoUTUXMAMKZB9382-58-61 18:46:00 Test Item Value Reference Range Interpretation Comments PT (test code = PT) 11.2 s 12.0-14.7 [place] [id number] 18:46:00 Test Item Value Reference Range Interpretation Comments INR (test code = INR) 0.82 0.85-1.17 [facility] SouthSvwbscgONAOVGHYIW9257-47-66 18:46:00 Test Item Value Reference Range Interpretation Comments PTT (test code = PTT) 28.6 s 22.9-35.8 [facility] SouthFncfaaiPILSYKFCLR3614-01-80 18:46:00 Test Item Value Reference Range Interpretation Comments MPV (test code = MPV) 8.1 7.4-10.4 [place] 079055-06-09 18:46:00 Test Item Value Reference Range Interpretation Comments Platelet (test code = Platelet) 301 133-450 [facility] SouthXprhxzcSEJNSOETSC9950-65-11 18:46:00 Test Item Value Reference Range Interpretation Comments RDW (test code = RDW) 14.5 11.5-14.5 [facility] SouthNmheoebJOGBDYZHQU0233-36-46 18:46:00 Test Item Value Reference Range Interpretation Comments RBC (test code = RBC) 4.84 4.70-6.10 [facility] SouthYpizklnFPGGAOSBYX4208-14-30 18:46:00 Test Item Value Reference Range Interpretation Comments Hgb (test code = Hgb) 14.4 14.0-18.0 [facility] SouthVbislspDYFDAONOPQ6973-84-41 18:46:00 Test Item Value Reference Range Interpretation Comments WBC (test code = WBC) 5.2 3.7-10.4 [facility] SouthXeiqlqmAKXUILXBQX4779-86-85 18:46:00 Test Item Value Reference Range Interpretation Comments MCH (test code = MCH) 29.8 pg 27.0-31.0 [facility] SouthIhztoozCKIXVUPLLH5662-08-57 18:46:00 Test Item Value Reference Range Interpretation Comments MCV (test code = MCV) 92.0 80.0-94.0 [place] 079055-06-09 18:46:00 Test Item Value Reference Range Interpretation Comments Hct (test code = Hct) 44.5 42.0-54.0 [facility] AreaMyxovosKCEVPHUOKV7737-98-12 18:46:00 Test Item Value Reference Range Interpretation Comments MCHC (test code = MCHC) 32.4 32.0-36.0 [facility]iaieyhQOZZKQTLHY5016-90-78 18:46:00 Test Item Value Reference Range Interpretation Comments [place]-Hep C Ab (test Negative *NA*(07/22/14 code = [place]-Hep C 1:46 PM) Ab) [facility] AND [id number] 18:46:00 Test Item Value Reference Range Interpretation Comments UA Urobilinogen (test code = UA <=1.0 mg/dL 0.1-1.0 Urobilinogen) [facility] AND [id number] 18:46:00 Test Item Value Reference Range Interpretation Comments UA Sq Epi (test code = UA Sq Epi) None Seen [facility] AND [id number] 18:46:00 Test Item Value Reference Range Interpretation Comments UA Leuk Est (test Negative (07/22/14 1:46 code = UA Leuk Est) PM) [facility] AND [id number] 18:46:00 Test Item Value Reference Range Interpretation Comments UA Nitrite (test code Negative (07/22/14 1:46 = UA Nitrite) PM) [facility] AND [id number] 18:46:00 Test Item Value Reference Range Interpretation Comments UA Blood (test code = Negative (07/22/14 1:46 UA Blood) PM) [facility] AND [id number] 18:46:00 Test Item Value Reference Range Interpretation Comments UA Ketones (test code = UA Negative mg/dL Ketones) [facility] AND [id number] 18:46:00 Test Item Value Reference Range Interpretation Comments UA Bili (test code = Negative *NA*(07/22/14 UA Bili) 1:46 PM) [facility] AND [id number] 18:46:00 Test Item Value Reference Range Interpretation Comments UA Bacteria (test code = UA Occasional /HPF Bacteria) [facility] AND [id number] 18:46:00 Test Item Value Reference Range Interpretation Comments UA RBC (test code = no gt See_Comment [Automa elizabeth message] The UA RBC) system which ge nerated this result transmit elizabeth reference range : <=2. The reference range was not used to interpr et this result as lukas l/abnormal. [facility] AND [id number] 18:46:00 Test Item Value Reference Range Interpretation Comments UA WBC (test code = 1 See_Comment [Automa elizabeth message] The UA WBC) system which ge nerated this result transmit elizabeth reference range : <=5. The reference range was not used to interpr et this result as lukas l/abnormal. [facility] AND [id number] 18:46:00 Test Item Value Reference Range Interpretation Comments UA Glucose (test code = UA Glucose) 30 mg/dL [facility] AND [id number] 18:46:00 Test Item Value Reference Range Interpretation Comments UA Protein (test code = UA Negative mg/dL Protein) [facility] AND [id number] 18:46:00 Test Item Value Reference Range Interpretation Comments UA pH (test code = UA pH) 6.5 5.0-8.0 [facility] AND [id number] 18:46:00 Test Item Value Reference Range Interpretation Comments UA Turbidity (test code = Clear (07/22/14 1:46 UA Turbidity) PM) [facility] AND [id number] 18:46:00 Test Item Value Reference Range Interpretation Comments UA Spec Grav (test code = UA Spec Grav) 1.010 [facility] AND [id number] 18:46:00 Test Item Value Reference Range Interpretation Comments UA Color (test code = Light Yellow UA Color) *NA*(07/22/14 1:46 PM) [facility] [id number] 18:46:00 Test Item Value Reference Range Interpretation Comments Magnesium Lvl (test code = Magnesium 1.8 1.8-2.4 Lvl) [facility]UdttcbfYTFPRVJEOKLL2884-85-02 18:46:00 Test Item Value Reference Range Interpretation Comments AGAP (test code = AGAP) 13.2 10.0-20.0 [facility]EejyqkuZPTZCDBXGSJG1611-62-00 18:46:00 Test Item Value Reference Range Interpretation Comments B/C Ratio (test code = B/C Ratio) 18 6-25 [facility] HospitalLbhcmiaCHMHIBXIPJHX7180-03-97 18:46:00 Test Item Value Reference Range Interpretation Comments A/G Ratio (test code = A/G Ratio) 1.1 0.7-1.6 [facility] HospitalPiykwtaDXHLSNUVXOJU0748-47-31 18:46:00 Test Item Value Reference Range Interpretation Comments Globulin (test code = Globulin) 3.3 2.0-4.0 [facility] HospitalDenkayvPURQGTPHCMRU3395-27-32 18:46:00 Test Item Value Reference Range Interpretation Comments eGFR (test code = eGFR) 99 [facility] HospitalDamcnynNXLGUXWJDJUX3422-76-66 18:46:00 Test Item Value Reference Range Interpretation Comments Calcium Lvl (test code = Calcium Lvl) 9.0 8.5-10.5 [facility] HospitalOkhbzvqJUGBWACLFXQL4129-31-86 18:46:00 Test Item Value Reference Range Interpretation Comments Chloride Lvl (test code = Chloride Lvl) 106 95-109 [facility] HospitalWjwpgyoTZHSOYXNEQJV9128-07-69 18:46:00 Test Item Value Reference Range Interpretation Comments Creatinine Lvl (test code = Creatinine 0.9 0.5-1.4 Lvl) [facility] HospitalGtqnmqeRUCMEOGJLTSR1943-93-99 18:46:00 Test Item Value Reference Range Interpretation Comments Potassium Lvl (test code = Potassium 4.2 3.5-5.1 Lvl) [facility] HospitalEjkutwwKSGNFVGPEILC2755-20-65 18:46:00 Test Item Value Reference Range Interpretation Comments Sodium Lvl (test code = Sodium Lvl) 139 135-145 [facility] HospitalAyexkplMCAIKFQOQYIA4992-53-66 18:46:00 Test Item Value Reference Range Interpretation Comments CO2 (test code = CO2) 24 24-32 [facility] HospitalVkqcvtuQXNUEWSRFECD9232-15-52 18:46:00 Test Item Value Reference Range Interpretation Comments BUN (test code = BUN) 16 7-22 [facility] HospitalXqduylzBLVFKXKCRWXR4315-08-06 18:46:00 Test Item Value Reference Range Interpretation Comments Glucose Lvl (test code = Glucose Lvl) 141 70-99 [facility] HospitalFwzdhmwGJRHNEKAGECU2049-41-62 18:46:00 Test Item Value Reference Range Interpretation Comments Albumin Lvl (test code = Albumin Lvl) 3.6 3.5-5.0 [facility] HospitalTmrlekaLHTIIEQCZWLT9314-89-13 18:46:00 Test Item Value Reference Range Interpretation Comments Alk Phos (test code = Alk Phos) 65 39-136 [facility] HospitalMtwienmAZHTCWPEROEF9751-43-48 18:46:00 Test Item Value Reference Range Interpretation Comments Bili Total (test code = Bili Total) 0.3 0.2-1.3 [facility] HospitalForbxgoIYQYNLCHCPPS5174-63-27 18:46:00 Test Item Value Reference Range Interpretation Comments ALT (test code = ALT) 100 See_Comment [Auto mated message] The system which ge nerated this result transmit elizabeth reference range : <=65. The reference range was not used to interpr et this result as lukas l/abnormal. [facility] HospitalXnmvjvwLNAKBSMUZVRL6994-79-62 18:46:00 Test Item Value Reference Range Interpretation Comments AST (test code = AST) 53 See_Comment [Auto mated message] The system which ge nerated this result transmit elizabeth reference range : <=37. The reference range was not used to interpr et this result as lukas l/abnormal. [facility] HospitalConrfpuROHVJRRGSRUK0008-29-61 18:46:00 Test Item Value Reference Range Interpretation Comments Total Protein (test code = Total 6.9 6.4-8.4 Protein) [facility]QsccdahMCBLQCEWJX6056-68-77 18:46:00 Test Item Value Reference Range Interpretation Comments Eosinophils (test code = 4.2 See_Comment [A utomated message] The Eosinophils) system which ge nerated this result tra nsmitted reference range : <=4.0. The reference r mitra was not used to int erpret this result as normal/abnormal . [facility] SouthUridrtzSCIPOSKEFK0942-67-42 18:46:00 Test Item Value Reference Range Interpretation Comments Segs (test code = Segs) 56.4 45.0-75.0 [facility] SouthMxtudrrJYZATLDBEW3597-23-27 18:46:00 Test Item Value Reference Range Interpretation Comments Monocytes (test code = Monocytes) 10.3 2.0-12.0 [facility] SouthZxfssvsPSDBKXICEE6157-85-97 18:46:00 Test Item Value Reference Range Interpretation Comments Lymphocytes (test code = Lymphocytes) 28.0 20.0-40.0 [facility] SouthYyqlnkeAYISFYBZMA9682-98-63 18:46:00 Test Item Value Reference Range Interpretation Comments Monocytes # (test code 0.5 See_Comment [Aut omated message] The = Monocytes #) system which generated this result tra nsmitted reference range : <=0.8. The reference r mitra was not used to int erpret this result as normal/abnormal . [facility] SouthEqeohsaILPGKHBVDE2215-34-70 18:46:00 Test Item Value Reference Range Interpretation Comments Basophils (test code = 1.1 See_Comment [Aut omated message] The Basophils) system which ge nerated this result tra nsmitted reference range : <=1.0. The reference r mitra was not used to int erpret this result as normal/abnormal . [facility] SouthRdkxerwODBLCOPEWF1221-75-62 18:46:00 Test Item Value Reference Range Interpretation Comments Lymphocytes # (test code = Lymphocytes 1.5 1.0-5.5 #) [facility] SouthSsgwpmrSLORUZSHUS3383-89-41 18:46:00 Test Item Value Reference Range Interpretation Comments Segs-Bands # (test code = Segs-Bands #) 2.9 1.5-8.1 [facility] SouthCgzcouwCRFVYQMTGG8879-14-96 18:46:00 Test Item Value Reference Range Interpretation Comments Eosinophils # (test code 0.2 See_Comment [A utomated message] The = Eosinophils #) system whic h generated this result tra nsmitted reference range : <=0.5. The reference r mitra was not used to int erpret this result as normal/abnormal . [facility] SouthIerbvtjMIQKEDMCMV0971-46-41 18:46:00 Test Item Value Reference Range Interpretation Comments Basophils # (test code 0.1 See_Comment [Aut omated message] The = Basophils #) system which generated this result tra nsmitted reference range : <=0.2. The reference r mitra was not used to int erpret this result as normal/abnormal . [facility] SouthCrrgntuHCBBFZLWKC5429-42-31 18:46:00 Test Item Value Reference Range Interpretation Comments PT (test code = PT) 11.2 s 12.0-14.7 [facility] SouthKkpmotzIMHBUBPORD3682-84-01 18:46:00 Test Item Value Reference Range Interpretation Comments INR (test code = INR) 0.82 0.85-1.17 [facility] SouthFvznymwFKUUVJDIPN9903-16-26 18:46:00 Test Item Value Reference Range Interpretation Comments PTT (test code = PTT) 28.6 s 22.9-35.8 [facility] AreaEqihpotYJRKWOPFPD4565-31-47 18:46:00 Test Item Value Reference Range Interpretation Comments MPV (test code = MPV) 8.1 7.4-10.4 [facility]QoagiidASLEOLWVBL4187-02-38 18:46:00 Test Item Value Reference Range Interpretation Comments Platelet (test code = Platelet) 301 133-450 [facility] HospitalJnhcgrvBGVVGDYJFD0482-63-00 18:46:00 Test Item Value Reference Range Interpretation Comments RDW (test code = RDW) 14.5 11.5-14.5 [facility] HospitalWssbcesDYIMDVCFLW9799-92-44 18:46:00 Test Item Value Reference Range Interpretation Comments RBC (test code = RBC) 4.84 4.70-6.10 [facility] HospitalGkqokeqBXFHFBRIKB0274-19-22 18:46:00 Test Item Value Reference Range Interpretation Comments Hgb (test code = Hgb) 14.4 14.0-18.0 [facility] HospitalEjnwlmqICBCKGJFXH5702-69-73 18:46:00 Test Item Value Reference Range Interpretation Comments WBC (test code = WBC) 5.2 3.7-10.4 [facility] AreaNqxjaseMXJUWNTURJ3181-36-79 18:46:00 Test Item Value Reference Range Interpretation Comments MCH (test code = MCH) 29.8 pg 27.0-31.0 [facility] HospitalXbatdoeJJIRDWLDWX6171-84-38 18:46:00 Test Item Value Reference Range Interpretation Comments MCV (test code = MCV) 92.0 80.0-94.0 [facility] AreaCrzwhhpRAMNZAWGHF5661-63-06 18:46:00 Test Item Value Reference Range Interpretation Comments Hct (test code = Hct) 44.5 42.0-54.0 [facility] AreaAegcfhgQDSFPQDKQD7876-44-16 18:46:00 Test Item Value Reference Range Interpretation Comments MCHC (test code = MCHC) 32.4 32.0-36.0 [facility] AreaNclqfbfKGPAMMWFSW3004-31-25 18:46:00 Test Item Value Reference Range Interpretation Comments [employer] [place]-Hep C Ab (test Negative *NA*(07/22/14 code = [place]-Hep C 1:46 PM) Ab) [facility] AND [id number] 18:46:00 Test Item Value Reference Range Interpretation Comments UA Urobilinogen (test code = UA <=1.0 mg/dL 0.1-1.0 Urobilinogen) [facility] AND [id number] 18:46:00 Test Item Value Reference Range Interpretation Comments UA Sq Epi (test code = UA Sq Epi) None Seen [facility] AND [id number] 18:46:00 Test Item Value Reference Range Interpretation Comments UA Leuk Est (test Negative (07/22/14 1:46 code = UA Leuk Est) PM) [facility] AND [id number] 18:46:00 Test Item Value Reference Range Interpretation Comments UA Nitrite (test code Negative (07/22/14 1:46 = UA Nitrite) PM) [facility] AND [id number] 18:46:00 Test Item Value Reference Range Interpretation Comments UA Blood (test code = Negative (07/22/14 1:46 UA Blood) PM) [facility] AND [id number] 18:46:00 Test Item Value Reference Range Interpretation Comments UA Ketones (test code = UA Negative mg/dL Ketones) [facility] AND [id number] 18:46:00 Test Item Value Reference Range Interpretation Comments UA Bili (test code = Negative *NA*(07/22/14 UA Bili) 1:46 PM) [facility] AND [id number] 18:46:00 Test Item Value Reference Range Interpretation Comments UA Bacteria (test code = UA Occasional /HPF Bacteria) [facility] AND [id number] 18:46:00 Test Item Value Reference Range Interpretation Comments UA RBC (test code = no gt See_Comment [Automa elizabeth message] The UA RBC) system which ge nerated this result transmit elizabeth reference range : <=2. The reference range was not used to interpr et this result as lukas l/abnormal. [facility] AND [id number] 18:46:00 Test Item Value Reference Range Interpretation Comments UA WBC (test code = 1 See_Comment [Automa elizabeth message] The UA WBC) system which ge nerated this result transmit elizabeth reference range : <=5. The reference range was not used to interpr et this result as lukas l/abnormal. [facility] AND [id number] 18:46:00 Test Item Value Reference Range Interpretation Comments UA Glucose (test code = UA Glucose) 30 mg/dL [facility] AND [id number] 18:46:00 Test Item Value Reference Range Interpretation Comments UA Protein (test code = UA Negative mg/dL Protein) [facility] AND [id number] 18:46:00 Test Item Value Reference Range Interpretation Comments UA pH (test code = UA pH) 6.5 5.0-8.0 [facility] AND [id number] 18:46:00 Test Item Value Reference Range Interpretation Comments UA Turbidity (test code = Clear (07/22/14 1:46 UA Turbidity) PM) [facility] AND [id number] 18:46:00 Test Item Value Reference Range Interpretation Comments UA Spec Grav (test code = UA Spec Grav) 1.010 [facility] AND [id number] 18:46:00 Test Item Value Reference Range Interpretation Comments UA Color (test code = Light Yellow UA Color) *NA*(07/22/14 1:46 PM) [facility] [id number] 18:46:00 Test Item Value Reference Range Interpretation Comments Magnesium Lvl (test code = Magnesium 1.8 1.8-2.4 Lvl) [facility]wytaarXTLDZOLYIWFO8770-15-96 18:46:00 Test Item Value Reference Range Interpretation Comments AGAP (test code = AGAP) 13.2 10.0-20.0 [facility] Hospital[id number] 18:46:00 Test Item Value Reference Range Interpretation Comments B/C Ratio (test code = B/C Ratio) 18 6-25 [facility] HospitalAsewwkiZQSGIMJKWNDX0297-43-73 18:46:00 Test Item Value Reference Range Interpretation Comments A/G Ratio (test code = A/G Ratio) 1.1 0.7-1.6 [facility] HospitalUzqzobqPADYAURXMQXA8795-16-72 18:46:00 Test Item Value Reference Range Interpretation Comments Globulin (test code = Globulin) 3.3 2.0-4.0 [facility] HospitalJcnuxznLMMFUXDGLXAJ5111-96-96 18:46:00 Test Item Value Reference Range Interpretation Comments eGFR (test code = eGFR) 99 [facility] HospitalKfnameyGAAHFIRFDECK3982-77-63 18:46:00 Test Item Value Reference Range Interpretation Comments Calcium Lvl (test code = Calcium Lvl) 9.0 8.5-10.5 [facility] HospitalPtkfwkkYGIAQHBDGYJJ6587-88-11 18:46:00 Test Item Value Reference Range Interpretation Comments Chloride Lvl (test code = Chloride Lvl) 106 95-109 [facility] HospitalHbquabvQKTFORFCBWPV3241-40-29 18:46:00 Test Item Value Reference Range Interpretation Comments Creatinine Lvl (test code = Creatinine 0.9 0.5-1.4 Lvl) [facility] HospitalOwpgkdnYOZSDCJFGOPY5690-20-94 18:46:00 Test Item Value Reference Range Interpretation Comments Potassium Lvl (test code = Potassium 4.2 3.5-5.1 Lvl) [facility] HospitalSdpywvqADPENJZBSRNC0451-47-09 18:46:00 Test Item Value Reference Range Interpretation Comments Sodium Lvl (test code = Sodium Lvl) 139 135-145 [facility] HospitalXvhdmuqUHORWOXJWOCM8585-98-68 18:46:00 Test Item Value Reference Range Interpretation Comments CO2 (test code = CO2) 24 24-32 [facility] HospitalHlafdvySEGISKMYEWLC9983-92-14 18:46:00 Test Item Value Reference Range Interpretation Comments BUN (test code = BUN) 16 7-22 [facility] HospitalGfwusttSMFOMQDCBTHY7345-24-67 18:46:00 Test Item Value Reference Range Interpretation Comments Glucose Lvl (test code = Glucose Lvl) 141 70-99 [facility] HospitalXgiywmfPCDRUSBVGYPB4587-04-84 18:46:00 Test Item Value Reference Range Interpretation Comments Albumin Lvl (test code = Albumin Lvl) 3.6 3.5-5.0 [facility] HospitalFhsjhbeBAGGPVFXHTCU7083-16-88 18:46:00 Test Item Value Reference Range Interpretation Comments Alk Phos (test code = Alk Phos) 65 39-136 [facility] HospitalRjzwnjiBTQYBHWJHPVG2788-03-89 18:46:00 Test Item Value Reference Range Interpretation Comments Bili Total (test code = Bili Total) 0.3 0.2-1.3 [facility] HospitalFglasfhZVRJMPCDOERQ2283-81-54 18:46:00 Test Item Value Reference Range Interpretation Comments ALT (test code = ALT) 100 See_Comment [Auto mated message] The system which ge nerated this result transmit elizabeth reference range : <=65. The reference range was not used to interpr et this result as lukas l/abnormal. [facility] HospitalIgsgftiAUBHAAEJBAVP0061-36-78 18:46:00 Test Item Value Reference Range Interpretation Comments AST (test code = AST) 53 See_Comment [Auto mated message] The system which ge nerated this result transmit elizabeth reference range : <=37. The reference range was not used to interpr et this result as lukas l/abnormal. [facility] HospitalTbbbghuTNNHHLPOKGOU9942-30-15 18:46:00 Test Item Value Reference Range Interpretation Comments Total Protein (test code = Total 6.9 6.4-8.4 Protein) [facility]mcyhaoVRODUQXAXN4710-92-11 18:46:00 Test Item Value Reference Range Interpretation Comments Eosinophils (test code = 4.2 See_Comment [A utomated message] The Eosinophils) system which ge nerated this result tra nsmitted reference range : <=4.0. The reference r mitra was not used to int erpret this result as normal/abnormal . [facility] SouthTbnstbbADXKSUSHPB2722-57-69 18:46:00 Test Item Value Reference Range Interpretation Comments Segs (test code = Segs) 56.4 45.0-75.0 [facility] SouthDzqkebnNQIEMQSLCJ2573-94-81 18:46:00 Test Item Value Reference Range Interpretation Comments Monocytes (test code = Monocytes) 10.3 2.0-12.0 [facility] SouthPovdhrbWQXUINUWGY9934-99-60 18:46:00 Test Item Value Reference Range Interpretation Comments Lymphocytes (test code = Lymphocytes) 28.0 20.0-40.0 [facility] SouthOpxwwryHNNPNKMTJI8910-89-76 18:46:00 Test Item Value Reference Range Interpretation Comments Monocytes # (test code 0.5 See_Comment [Aut omated message] The = Monocytes #) system which generated this result tra nsmitted reference range : <=0.8. The reference r mitra was not used to int erpret this result as normal/abnormal . [facility] SouthKgsskxuAEAEIGJXLR7407-30-76 18:46:00 Test Item Value Reference Range Interpretation Comments Basophils (test code = 1.1 See_Comment [Aut omated message] The Basophils) system which ge nerated this result tra nsmitted reference range : <=1.0. The reference r mitra was not used to int erpret this result as normal/abnormal . [facility] SouthDxviozrMOXLMMGJLG8198-59-50 18:46:00 Test Item Value Reference Range Interpretation Comments Lymphocytes # (test code = Lymphocytes 1.5 1.0-5.5 #) [facility] SouthRloqlciRQVKSMFGZG1902-94-60 18:46:00 Test Item Value Reference Range Interpretation Comments Segs-Bands # (test code = Segs-Bands #) 2.9 1.5-8.1 [facility] SouthTdpztleHZUHCPPGZJ1068-23-57 18:46:00 Test Item Value Reference Range Interpretation Comments Eosinophils # (test code 0.2 See_Comment [A utomated message] The = Eosinophils #) system whic h generated this result tra nsmitted reference range : <=0.5. The reference r mitra was not used to int erpret this result as normal/abnormal . [facility] SouthDnnqqatJWHACJADCZ3724-29-69 18:46:00 Test Item Value Reference Range Interpretation Comments Basophils # (test code 0.1 See_Comment [Aut omated message] The = Basophils #) system which generated this result tra nsmitted reference range : <=0.2. The reference r mitra was not used to int erpret this result as normal/abnormal . [facility] SouthDhhkavsVMDYZBTDFB9884-38-69 18:46:00 Test Item Value Reference Range Interpretation Comments PT (test code = PT) 11.2 s 12.0-14.7 [facility] SouthUcawbayZSVIFZZGWQ6333-75-93 18:46:00 Test Item Value Reference Range Interpretation Comments INR (test code = INR) 0.82 0.85-1.17 [facility] SouthRlwpvtwQNEOGZQDRD6967-37-31 18:46:00 Test Item Value Reference Range Interpretation Comments PTT (test code = PTT) 28.6 s 22.9-35.8 [facility] SouthPmalgsbAAISTXJZST7765-04-35 18:46:00 Test Item Value Reference Range Interpretation Comments MPV (test code = MPV) 8.1 7.4-10.4 [facility] SouthRsjsavtMHGBLYRCOS4645-72-35 18:46:00 Test Item Value Reference Range Interpretation Comments Platelet (test code = Platelet) 301 133-450 [facility] SouthXawwjebJLTXVPYXHT1706-88-73 18:46:00 Test Item Value Reference Range Interpretation Comments RDW (test code = RDW) 14.5 11.5-14.5 [facility] SouthReuxlxbGXSBQXSWJG5083-45-98 18:46:00 Test Item Value Reference Range Interpretation Comments RBC (test code = RBC) 4.84 4.70-6.10 [facility]RathtnwUMBWEKRLOS3092-78-04 18:46:00 Test Item Value Reference Range Interpretation Comments Hgb (test code = Hgb) 14.4 14.0-18.0 [facility] HospitalBsvzaulXENZDSJKFI1403-34-73 18:46:00 Test Item Value Reference Range Interpretation Comments WBC (test code = WBC) 5.2 3.7-10.4 [facility] SouthGfxmskfSCGDNFIOPZ2462-34-55 18:46:00 Test Item Value Reference Range Interpretation Comments MCH (test code = MCH) 29.8 pg 27.0-31.0 [facility] SouthCvoftczRHVIARIAYM0187-05-64 18:46:00 Test Item Value Reference Range Interpretation Comments MCV (test code = MCV) 92.0 80.0-94.0 [facility] SouthKkqksqjXVCJXVVOZG1294-05-32 18:46:00 Test Item Value Reference Range Interpretation Comments Hct (test code = Hct) 44.5 42.0-54.0 [facility] SouthDgznbrfHUNOQBPUBX7402-77-20 18:46:00 Test Item Value Reference Range Interpretation Comments MCHC (test code = MCHC) 32.4 32.0-36.0 [facility] AreaUwoiwsiGRVEDNAGOH6744-09-10 18:46:00 Test Item Value Reference Range Interpretation Comments [place]-Hep C Ab (test Negative *NA*(07/22/14 code = [place]-Hep C 1:46 PM) Ab) [facility] AND [id number] 18:46:00 Test Item Value Reference Range Interpretation Comments UA Urobilinogen (test code = UA <=1.0 mg/dL 0.1-1.0 Urobilinogen) [facility] AND [id number] 18:46:00 Test Item Value Reference Range Interpretation Comments UA Sq Epi (test code = UA Sq Epi) None Seen [facility] AND [id number] 18:46:00 Test Item Value Reference Range Interpretation Comments UA Leuk Est (test Negative (07/22/14 1:46 code = UA Leuk Est) PM) [facility] AND [id number] 18:46:00 Test Item Value Reference Range Interpretation Comments UA Nitrite (test code Negative (6/9/15 1:46 = UA Nitrite) PM) [facility] AND [id number] 18:46:00 Test Item Value Reference Range Interpretation Comments UA Blood (test code = Negative (07/22/14 1:46 UA Blood) PM) [facility] AND [id number] 18:46:00 Test Item Value Reference Range Interpretation Comments UA Ketones (test code = UA Negative mg/dL Ketones) [facility] AND [id number] 18:46:00 Test Item Value Reference Range Interpretation Comments UA Bili (test code = Negative *NA*(07/22/14 UA Bili) 1:46 PM) [facility] AND [id number] 18:46:00 Test Item Value Reference Range Interpretation Comments UA Bacteria (test code = UA Occasional /HPF Bacteria) [facility] AND [id number] 18:46:00 Test Item Value Reference Range Interpretation Comments UA RBC (test code = no gt See_Comment [Automa elizabeth message] The UA RBC) system which ge nerated this result transmit elizabeth reference range : <=2. The reference range was not used to interpr et this result as lukas l/abnormal. [facility] AND [id number] 18:46:00 Test Item Value Reference Range Interpretation Comments UA WBC (test code = 1 See_Comment [Automa elizabeth message] The UA WBC) system which ge nerated this result transmit elizabeth reference range : <=5. The reference range was not used to interpr et this result as lukas l/abnormal. [facility] AND [id number] 18:46:00 Test Item Value Reference Range Interpretation Comments UA Glucose (test code = UA Glucose) 30 mg/dL [facility] AND [id number] 18:46:00 Test Item Value Reference Range Interpretation Comments UA Protein (test code = UA Negative mg/dL Protein) [facility] AND [id number] 18:46:00 Test Item Value Reference Range Interpretation Comments UA pH (test code = UA pH) 6.5 5.0-8.0 [facility] AND [id number] 18:46:00 Test Item Value Reference Range Interpretation Comments UA Turbidity (test code = Clear (07/22/14 1:46 UA Turbidity) PM) [facility] AND [id number] 18:46:00 Test Item Value Reference Range Interpretation Comments UA Spec Grav (test code = UA Spec Grav) 1.010 [facility] AND [id number] 18:46:00 Test Item Value Reference Range Interpretation Comments UA Color (test code = Light Yellow UA Color) *NA*(07/22/14 1:46 PM) [facility] [id number] 18:46:00 Test Item Value Reference Range Interpretation Comments Magnesium Lvl (test code = Magnesium 1.8 1.8-2.4 Lvl) [facility]TB[facility]OBGMMHKRC5729-91-31 18:46:00 Test Item Value Reference Range Interpretation Comments AGAP (test code = AGAP) 13.2 10.0-20.0 [facility] HospitalCkrjcbaDMWZIHVRDVOA1337-68-15 18:46:00 Test Item Value Reference Range Interpretation Comments B/C Ratio (test code = B/C Ratio) 18 6-25 [facility] HospitalYjpcyvjHSVOMNTZLKSR0230-77-22 18:46:00 Test Item Value Reference Range Interpretation Comments A/G Ratio (test code = A/G Ratio) 1.1 0.7-1.6 [facility] HospitalVclmhbaUKTAHIQVJZBW6039-26-36 18:46:00 Test Item Value Reference Range Interpretation Comments Globulin (test code = Globulin) 3.3 2.0-4.0 [facility] HospitalVfccaurJYMWGIQZJUPY7070-83-05 18:46:00 Test Item Value Reference Range Interpretation Comments eGFR (test code = eGFR) 99 [facility] HospitalPduaeqiSKIUPDALYZPR1790-37-30 18:46:00 Test Item Value Reference Range Interpretation Comments Calcium Lvl (test code = Calcium Lvl) 9.0 8.5-10.5 [facility] HospitalXokplpsZDKKYFLCGABY2861-03-85 18:46:00 Test Item Value Reference Range Interpretation Comments Chloride Lvl (test code = Chloride Lvl) 106 95-109 [facility] HospitalKhrehraXTJQGGWZQJLB0848-04-12 18:46:00 Test Item Value Reference Range Interpretation Comments Creatinine Lvl (test code = Creatinine 0.9 0.5-1.4 Lvl) [facility] HospitalDhqofbxOVVSIEHHLWZP5414-79-86 18:46:00 Test Item Value Reference Range Interpretation Comments Potassium Lvl (test code = Potassium 4.2 3.5-5.1 Lvl) [facility] HospitalOwjuovlJNVXGCUKLVTQ1624-62-77 18:46:00 Test Item Value Reference Range Interpretation Comments Sodium Lvl (test code = Sodium Lvl) 139 135-145 [facility] HospitalSwidzmwWLBYAMYHEWXU5207-94-73 18:46:00 Test Item Value Reference Range Interpretation Comments CO2 (test code = CO2) 24 24-32 [facility] HospitalMdepzblRFQXNMFOVIWC8719-20-18 18:46:00 Test Item Value Reference Range Interpretation Comments BUN (test code = BUN) 16 7-22 [facility] HospitalHqdfxkfPLJBZTRRIJYQ2874-84-06 18:46:00 Test Item Value Reference Range Interpretation Comments Glucose Lvl (test code = Glucose Lvl) 141 70-99 [facility] HospitalYietirkMKEGOBPDYIFY0832-93-54 18:46:00 Test Item Value Reference Range Interpretation Comments Albumin Lvl (test code = Albumin Lvl) 3.6 3.5-5.0 [facility] HospitalIkghaflODFDOBLBODUG0328-83-35 18:46:00 Test Item Value Reference Range Interpretation Comments Alk Phos (test code = Alk Phos) 65 39-136 [facility] HospitalOqgqzowVUMYXRGLYDKG5605-82-74 18:46:00 Test Item Value Reference Range Interpretation Comments Bili Total (test code = Bili Total) 0.3 0.2-1.3 [facility] HospitalCqrtmtrUYHGYTZBUMZP9265-46-27 18:46:00 Test Item Value Reference Range Interpretation Comments ALT (test code = ALT) 100 See_Comment [Auto mated message] The system which ge nerated this result transmit elizabeth reference range : <=65. The reference range was not used to interpr et this result as lukas l/abnormal. [facility] HospitalDfhgsenLHFNWXJBAWNR6370-44-14 18:46:00 Test Item Value Reference Range Interpretation Comments AST (test code = AST) 53 See_Comment [Auto mated message] The system which ge nerated this result transmit elizabeth reference range : <=37. The reference range was not used to interpr et this result as lukas l/abnormal. [facility] HospitalTtzmepbMFYZJOQMXTYQ4651-64-04 18:46:00 Test Item Value Reference Range Interpretation Comments Total Protein (test code = Total 6.9 6.4-8.4 Protein) [facility] AreaIjaediaDMPMWASPQX9902-47-93 18:46:00 Test Item Value Reference Range Interpretation Comments Eosinophils (test code = 4.2 See_Comment [A utomated message] The Eosinophils) system which ge nerated this result tra nsmitted reference range : <=4.0. The reference r mitra was not used to int erpret this result as normal/abnormal . [facility]NwnrelqMIXXNCQOHF7690-25-80 18:46:00 Test Item Value Reference Range Interpretation Comments Segs (test code = Segs) 56.4 45.0-75.0 [facility] SouthCizjkfpAPUGJLZALU2583-08-29 18:46:00 Test Item Value Reference Range Interpretation Comments Monocytes (test code = Monocytes) 10.3 2.0-12.0 [facility] SouthQdbhbyuMGEMBFPWWI3514-84-20 18:46:00 Test Item Value Reference Range Interpretation Comments Lymphocytes (test code = Lymphocytes) 28.0 20.0-40.0 [facility] SouthMwgqpquFZEMZCLQVQ9269-97-90 18:46:00 Test Item Value Reference Range Interpretation Comments Monocytes # (test code 0.5 See_Comment [Aut omated message] The = Monocytes #) system which generated this result tra nsmitted reference range : <=0.8. The reference r mitra was not used to int erpret this result as normal/abnormal . [facility] SouthLmuyrnvBNTVJLDXSX5263-33-83 18:46:00 Test Item Value Reference Range Interpretation Comments Basophils (test code = 1.1 See_Comment [Aut omated message] The Basophils) system which ge nerated this result tra nsmitted reference range : <=1.0. The reference r mitra was not used to int erpret this result as normal/abnormal . [facility] SouthZojgjadDWFPFRQDTL1466-65-99 18:46:00 Test Item Value Reference Range Interpretation Comments Lymphocytes # (test code = Lymphocytes 1.5 1.0-5.5 #) [facility] SouthFmrzsyoWQXFWJBUMF3079-52-21 18:46:00 Test Item Value Reference Range Interpretation Comments Segs-Bands # (test code = Segs-Bands #) 2.9 1.5-8.1 [facility] SouthHedznvgFZJWTZHPPO5711-84-48 18:46:00 Test Item Value Reference Range Interpretation Comments Eosinophils # (test code 0.2 See_Comment [A utomated message] The = Eosinophils #) system wh h generated this result tra nsmitted reference range : <=0.5. The reference r mitra was not used to int erpret this result as normal/abnormal . [facility] SouthIrlmgvxHRBTWNHGTR4508-76-80 18:46:00 Test Item Value Reference Range Interpretation Comments Basophils # (test code 0.1 See_Comment [Aut omated message] The = Basophils #) system which generated this result tra nsmitted reference range : <=0.2. The reference r mitra was not used to int erpret this result as normal/abnormal . [facility] SouthEwmhapkIXAIZHNUUT1014-20-00 18:46:00 Test Item Value Reference Range Interpretation Comments PT (test code = PT) 11.2 s 12.0-14.7 [facility] SouthYgblrvxXGWDWPGCBF7399-71-59 18:46:00 Test Item Value Reference Range Interpretation Comments INR (test code = INR) 0.82 0.85-1.17 [facility] SouthIsgiaatIRGLFTBSFV5052-10-78 18:46:00 Test Item Value Reference Range Interpretation Comments PTT (test code = PTT) 28.6 s 22.9-35.8 [facility] SouthJjeqddiFOLBYTYJLL0207-63-46 18:46:00 Test Item Value Reference Range Interpretation Comments MPV (test code = MPV) 8.1 7.4-10.4 [facility] SouthMjyueniWVFNURFOGH6404-16-46 18:46:00 Test Item Value Reference Range Interpretation Comments Platelet (test code = Platelet) 301 133-450 [facility] SouthWdjhygiWNKDKKSSQI5378-19-59 18:46:00 Test Item Value Reference Range Interpretation Comments RDW (test code = RDW) 14.5 11.5-14.5 [facility] SouthCgszsnsJEMRJUHGBL9677-26-31 18:46:00 Test Item Value Reference Range Interpretation Comments RBC (test code = RBC) 4.84 4.70-6.10 [facility] SouthWrwdsvgJCCIFJPTGT1865-30-01 18:46:00 Test Item Value Reference Range Interpretation Comments Hgb (test code = Hgb) 14.4 14.0-18.0 [facility] SouthViulzzhNWIGOLCRIV5550-07-30 18:46:00 Test Item Value Reference Range Interpretation Comments WBC (test code = WBC) 5.2 3.7-10.4 [facility] SouthEffiislFBLBTNRJLN7713-96-02 18:46:00 Test Item Value Reference Range Interpretation Comments MCH (test code = MCH) 29.8 pg 27.0-31.0 [facility]AsfgucuGFOPOJOKHF1162-77-28 18:46:00 Test Item Value Reference Range Interpretation Comments MCV (test code = MCV) 92.0 80.0-94.0 [facility] AreaInpolehERVZLKGAWB0055-69-65 18:46:00 Test Item Value Reference Range Interpretation Comments Hct (test code = Hct) 44.5 42.0-54.0 [facility] AreaFaimweeTMKXRZGDPJ4022-87-71 18:46:00 Test Item Value Reference Range Interpretation Comments MCHC (test code = MCHC) 32.4 32.0-36.0 [facility] AreaFqttbiqRLJWQYBMZC2532-34-68 18:46:00 Test Item Value Reference Range Interpretation Comments [employer] [place]-Hep C Ab (test Negative *NA*(07/22/14 code = [place]-Hep C 1:46 PM) Ab) [facility] AND [id number] 18:46:00 Test Item Value Reference Range Interpretation Comments UA Urobilinogen (test code = UA <=1.0 mg/dL 0.1-1.0 Urobilinogen) [facility] AND [id number] 18:46:00 Test Item Value Reference Range Interpretation Comments UA Sq Epi (test code = UA Sq Epi) None Seen [facility] AND [id number] 18:46:00 Test Item Value Reference Range Interpretation Comments UA Leuk Est (test Negative (07/22/14 1:46 code = UA Leuk Est) PM) [facility] AND [id number] 18:46:00 Test Item Value Reference Range Interpretation Comments UA Nitrite (test code Negative (07/22/14 1:46 = UA Nitrite) PM) [facility] AND [id number] 18:46:00 Test Item Value Reference Range Interpretation Comments UA Blood (test code = Negative (07/22/14 1:46 UA Blood) PM) [facility] AND [id number] 18:46:00 Test Item Value Reference Range Interpretation Comments UA Ketones (test code = UA Negative mg/dL Ketones) [facility] AND [id number] 18:46:00 Test Item Value Reference Range Interpretation Comments UA Bili (test code = Negative *NA*(07/22/14 UA Bili) 1:46 PM) [facility] [id number] 18:46:00 Test Item Value Reference Range Interpretation Comments UA Bacteria (test code = UA Occasional /HPF Bacteria) [facility] [id number] 18:46:00 Test Item Value Reference Range Interpretation Comments UA RBC (test code = no gt See_Comment [Automa elizabeth message] The UA RBC) system which ge nerated this result transmit elizabeth reference range : <=2. The reference range was not used to interpr et this result as lukas l/abnormal. [facility] [id number] 18:46:00 Test Item Value Reference Range Interpretation Comments UA WBC (test code = 1 See_Comment [Automa elizabeth message] The UA WBC) system which ge nerated this result transmit elizabeth reference range : <=5. The reference range was not used to interpr et this result as lukas l/abnormal. [facility] [id number] 18:46:00 Test Item Value Reference Range Interpretation Comments UA Glucose (test code = UA Glucose) 30 mg/dL [facility] [id number] 18:46:00 Test Item Value Reference Range Interpretation Comments UA Protein (test code = UA Negative mg/dL Protein) [facility] [id number] 18:46:00 Test Item Value Reference Range Interpretation Comments UA pH (test code = UA pH) 6.5 5.0-8.0 [facility] [id number] 18:46:00 Test Item Value Reference Range Interpretation Comments UA Turbidity (test code = Clear (07/22/14 1:46 UA Turbidity) PM) [facility] [id number] 18:46:00 Test Item Value Reference Range Interpretation Comments UA Spec Grav (test code = UA Spec Grav) 1.010 [facility] [id number] 18:46:00 Test Item Value Reference Range Interpretation Comments UA Color (test code = Light Yellow UA Color) *NA*(07/22/14 1:46 PM) [facility] [id number] 18:46:00 Test Item Value Reference Range Interpretation Comments Magnesium Lvl (test code = Magnesium 1.8 1.8-2.4 Lvl) [facility] BdjezofTGTDQEUDWCDP6173-73-23 18:46:00 Test Item Value Reference Range Interpretation Comments AGAP (test code = AGAP) 13.2 10.0-20.0 [facility]IyafkupQBZNTLSVTCUF3043-18-72 18:46:00 Test Item Value Reference Range Interpretation Comments B/C Ratio (test code = B/C Ratio) 18 6-25 [facility] HospitalBflbmluZVPDGDGNKPXE5761-92-61 18:46:00 Test Item Value Reference Range Interpretation Comments A/G Ratio (test code = A/G Ratio) 1.1 0.7-1.6 [facility] HospitalZtbaxxdHCEMXPYOOZDY9705-50-31 18:46:00 Test Item Value Reference Range Interpretation Comments Globulin (test code = Globulin) 3.3 2.0-4.0 [facility] HospitalXosalooNIFEOZERKRVI8701-48-19 18:46:00 Test Item Value Reference Range Interpretation Comments eGFR (test code = eGFR) 99 [facility] HospitalOegmdmxZBMZYRHROPBK6332-46-21 18:46:00 Test Item Value Reference Range Interpretation Comments Calcium Lvl (test code = Calcium Lvl) 9.0 8.5-10.5 [facility] HospitalXlpvgujRWBEOETTCODF5607-01-41 18:46:00 Test Item Value Reference Range Interpretation Comments Chloride Lvl (test code = Chloride Lvl) 106 95-109 [facility] HospitalIvulwogNPBFLAONQSJV1044-66-59 18:46:00 Test Item Value Reference Range Interpretation Comments Creatinine Lvl (test code = Creatinine 0.9 0.5-1.4 Lvl) [facility] HospitalDtakundWSFGRFEIGFVW1350-04-52 18:46:00 Test Item Value Reference Range Interpretation Comments Potassium Lvl (test code = Potassium 4.2 3.5-5.1 Lvl) [facility] HospitalRwlefnqVIKYGRMDZWUI9936-77-61 18:46:00 Test Item Value Reference Range Interpretation Comments Sodium Lvl (test code = Sodium Lvl) 139 135-145 [facility] HospitalOcutphxAXRWDTZNHCMW9502-87-95 18:46:00 Test Item Value Reference Range Interpretation Comments CO2 (test code = CO2) 24 24-32 [facility] HospitalXyrvbdiILOIDBGZVMCJ9225-58-68 18:46:00 Test Item Value Reference Range Interpretation Comments BUN (test code = BUN) 16 7-22 [facility] HospitalAntwyqqVEDWJATGUINP5124-41-68 18:46:00 Test Item Value Reference Range Interpretation Comments Glucose Lvl (test code = Glucose Lvl) 141 70-99 [facility] HospitalRvutvcdRSFPDLEFVNIM2979-87-98 18:46:00 Test Item Value Reference Range Interpretation Comments Albumin Lvl (test code = Albumin Lvl) 3.6 3.5-5.0 [facility] HospitalBpexkujQPJANDSAXKOU6980-76-89 18:46:00 Test Item Value Reference Range Interpretation Comments Alk Phos (test code = Alk Phos) 65 39-136 [facility] HospitalKmyttopJIHCGABPAIJL5752-57-68 18:46:00 Test Item Value Reference Range Interpretation Comments Bili Total (test code = Bili Total) 0.3 0.2-1.3 [facility] HospitalInewfdtFHWYJYNDQHFH8264-81-89 18:46:00 Test Item Value Reference Range Interpretation Comments ALT (test code = ALT) 100 See_Comment [Auto mated message] The system which ge nerated this result transmit elizabeth reference range : <=65. The reference range was not used to interpr et this result as lukas l/abnormal. [facility] HospitalUcisojfJGQJAGPQDJKK6136-53-26 18:46:00 Test Item Value Reference Range Interpretation Comments AST (test code = AST) 53 See_Comment [Auto mated message] The system which ge nerated this result transmit elizabeth reference range : <=37. The reference range was not used to interpr et this result as lukas l/abnormal. [facility] HospitalMcdiejsGXDAVSVOVYSP9686-75-16 18:46:00 Test Item Value Reference Range Interpretation Comments Total Protein (test code = Total 6.9 6.4-8.4 Protein) [facility]MncphwdKDMDLXZIHI0485-57-36 18:46:00 Test Item Value Reference Range Interpretation Comments Eosinophils (test code = 4.2 See_Comment [A utomated message] The Eosinophils) system which ge nerated this result tra nsmitted reference range : <=4.0. The reference r mitra was not used to int erpret this result as normal/abnormal . [facility] SouthQuizxvvXVMQICDBVB9191-94-95 18:46:00 Test Item Value Reference Range Interpretation Comments Segs (test code = Segs) 56.4 45.0-75.0 [facility] SouthMmtavyiUIGUDMJBPF5003-21-18 18:46:00 Test Item Value Reference Range Interpretation Comments Monocytes (test code = Monocytes) 10.3 2.0-12.0 [facility] SouthFfodsacLJAAVGIYNW4130-96-85 18:46:00 Test Item Value Reference Range Interpretation Comments Lymphocytes (test code = Lymphocytes) 28.0 20.0-40.0 [facility] SouthWzxzmjfHPSUAMPCLO1804-44-33 18:46:00 Test Item Value Reference Range Interpretation Comments Monocytes # (test code 0.5 See_Comment [Aut omated message] The = Monocytes #) system which generated this result tra nsmitted reference range : <=0.8. The reference r mitra was not used to int erpret this result as normal/abnormal . [facility] SouthIpimsujFKCAGTSDLG1352-66-57 18:46:00 Test Item Value Reference Range Interpretation Comments Basophils (test code = 1.1 See_Comment [Aut omated message] The Basophils) system which ge nerated this result tra nsmitted reference range : <=1.0. The reference r mitra was not used to int erpret this result as normal/abnormal . [facility] SouthPzdpmhxFDYNPSHATY4938-89-05 18:46:00 Test Item Value Reference Range Interpretation Comments Lymphocytes # (test code = Lymphocytes 1.5 1.0-5.5 #) [facility] SouthLfsdihsGKQLSKYWQL2929-94-20 18:46:00 Test Item Value Reference Range Interpretation Comments Segs-Bands # (test code = Segs-Bands #) 2.9 1.5-8.1 [facility] SouthBugzeykUGOLYGSCST4057-80-06 18:46:00 Test Item Value Reference Range Interpretation Comments Eosinophils # (test code 0.2 See_Comment [A utomated message] The = Eosinophils #) system whic h generated this result tra nsmitted reference range : <=0.5. The reference r mitra was not used to int erpret this result as normal/abnormal . [facility] SouthEuvwovbUYKKZITCGX0958-17-67 18:46:00 Test Item Value Reference Range Interpretation Comments Basophils # (test code 0.1 See_Comment [Aut omated message] The = Basophils #) system which generated this result tra nsmitted reference range : <=0.2. The reference r mitra was not used to int erpret this result as normal/abnormal . [facility] SouthYinbvvkSNEHILSMZJ5851-22-73 18:46:00 Test Item Value Reference Range Interpretation Comments PT (test code = PT) 11.2 s 12.0-14.7 [facility] SouthCxzjufuAMXIOFRWXJ3974-69-51 18:46:00 Test Item Value Reference Range Interpretation Comments INR (test code = INR) 0.82 0.85-1.17 [facility] SouthJnecwehDHSFAAVVAN8025-74-78 18:46:00 Test Item Value Reference Range Interpretation Comments PTT (test code = PTT) 28.6 s 22.9-35.8 [facility] SouthJrpamjpUXIPNAMTJQ3960-19-40 18:46:00 Test Item Value Reference Range Interpretation Comments MPV (test code = MPV) 8.1 7.4-10.4 [facility] SouthTqmxtphACPNYKWLBC4633-55-38 18:46:00 Test Item Value Reference Range Interpretation Comments Platelet (test code = Platelet) 301 133-450 [facility] SouthNjulfgzVPZGTUKXRH6258-73-95 18:46:00 Test Item Value Reference Range Interpretation Comments RDW (test code = RDW) 14.5 11.5-14.5 [facility] SouthVyanujoIWTFLXPWWR3568-05-15 18:46:00 Test Item Value Reference Range Interpretation Comments RBC (test code = RBC) 4.84 4.70-6.10 [facility] SouthYcaiyqfNQRFYXOLZO4898-41-06 18:46:00 Test Item Value Reference Range Interpretation Comments Hgb (test code = Hgb) 14.4 14.0-18.0 [facility] SouthVdljegeRBXVVHXPWT7585-37-99 18:46:00 Test Item Value Reference Range Interpretation Comments WBC (test code = WBC) 5.2 3.7-10.4 [facility] SouthVlujsptLOTVGEAUPL7610-58-86 18:46:00 Test Item Value Reference Range Interpretation Comments MCH (test code = MCH) 29.8 pg 27.0-31.0 [facility] SouthRpesfdkOJBXQCUMJQ2354-15-93 18:46:00 Test Item Value Reference Range Interpretation Comments MCV (test code = MCV) 92.0 80.0-94.0 [facility] SouthFmutqiyMRWEHKYADB8608-52-40 18:46:00 Test Item Value Reference Range Interpretation Comments Hct (test code = Hct) 44.5 42.0-54.0 [facility] SouthGevxbliYEXHDONLLE7331-56-09 18:46:00 Test Item Value Reference Range Interpretation Comments MCHC (test code = MCHC) 32.4 32.0-36.0 [facility]hlimqxBIKJEUZYAG0741-01-44 18:46:00 Test Item Value Reference Range Interpretation Comments [place]-Hep C Ab (test Negative *NA*(07/22/14 code = [place]-Hep C 1:46 PM) Ab) [facility] AND [id number] 18:46:00 Test Item Value Reference Range Interpretation Comments UA Urobilinogen (test code = UA <=1.0 mg/dL 0.1-1.0 Urobilinogen) [facility] AND [id number] 18:46:00 Test Item Value Reference Range Interpretation Comments UA Sq Epi (test code = UA Sq Epi) None Seen [facility] AND [id number] 18:46:00 Test Item Value Reference Range Interpretation Comments UA Leuk Est (test Negative (07/22/14 1:46 code = UA Leuk Est) PM) [facility] AND [id number] 18:46:00 Test Item Value Reference Range Interpretation Comments UA Nitrite (test code Negative (07/22/14 1:46 = UA Nitrite) PM) [facility] AND [id number] 18:46:00 Test Item Value Reference Range Interpretation Comments UA Blood (test code = Negative (07/22/14 1:46 UA Blood) PM) [facility] AND [id number] 18:46:00 Test Item Value Reference Range Interpretation Comments UA Ketones (test code = UA Negative mg/dL Ketones) [facility] AND [id number] 18:46:00 Test Item Value Reference Range Interpretation Comments UA Bili (test code = Negative *NA*(07/22/14 UA Bili) 1:46 PM) [facility] AND [id number] 18:46:00 Test Item Value Reference Range Interpretation Comments UA Bacteria (test code = UA Occasional /HPF Bacteria) [facility] AND [id number] 18:46:00 Test Item Value Reference Range Interpretation Comments UA RBC (test code = no gt See_Comment [Automa elizabeth message] The UA RBC) system which ge nerated this result transmit elizabeth reference range : <=2. The reference range was not used to interpr et this result as lukas l/abnormal. [facility] AND [id number] 18:46:00 Test Item Value Reference Range Interpretation Comments UA WBC (test code = 1 See_Comment [Automa elizabeth message] The UA WBC) system which ge nerated this result transmit elizabeth reference range : <=5. The reference range was not used to interpr et this result as lukas l/abnormal. [facility] AND [id number] 18:46:00 Test Item Value Reference Range Interpretation Comments UA Glucose (test code = UA Glucose) 30 mg/dL [facility] AND [id number] 18:46:00 Test Item Value Reference Range Interpretation Comments UA Protein (test code = UA Negative mg/dL Protein) [facility] AND [id number] 18:46:00 Test Item Value Reference Range Interpretation Comments UA pH (test code = UA pH) 6.5 5.0-8.0 [facility] AND [id number] 18:46:00 Test Item Value Reference Range Interpretation Comments UA Turbidity (test code = Clear (07/22/14 1:46 UA Turbidity) PM) [facility] AND [id number] 18:46:00 Test Item Value Reference Range Interpretation Comments UA Spec Grav (test code = UA Spec Grav) 1.010 [facility] AND [id number] 18:46:00 Test Item Value Reference Range Interpretation Comments UA Color (test code = Light Yellow UA Color) *NA*(07/22/14 1:46 PM) [facility] [id number] 18:46:00 Test Item Value Reference Range Interpretation Comments Magnesium Lvl (test code = Magnesium 1.8 1.8-2.4 Lvl) [facility]PXDPVEZGRLKP0495-02-40 18:46:00 Test Item Value Reference Range Interpretation Comments AGAP (test code = AGAP) 13.2 10.0-20.0 [facility]MblvzvvAFLFLLAEXLFO4385-34-64 18:46:00 Test Item Value Reference Range Interpretation Comments B/C Ratio (test code = B/C Ratio) 18 6-25 [facility] HospitalJwauhfqIVHMJFHDFNSL2513-66-52 18:46:00 Test Item Value Reference Range Interpretation Comments A/G Ratio (test code = A/G Ratio) 1.1 0.7-1.6 [facility] HospitalSjwldutGUFYOIIGMDNA3707-99-04 18:46:00 Test Item Value Reference Range Interpretation Comments Globulin (test code = Globulin) 3.3 2.0-4.0 [facility] HospitalMcwlxibKCQZAPLRDYGC7532-19-89 18:46:00 Test Item Value Reference Range Interpretation Comments eGFR (test code = eGFR) 99 [facility] HospitalTqftbwiNXIHHJSNDYPR6485-83-36 18:46:00 Test Item Value Reference Range Interpretation Comments Calcium Lvl (test code = Calcium Lvl) 9.0 8.5-10.5 [facility] HospitalCoiahggDYNVLASBENEG1757-88-73 18:46:00 Test Item Value Reference Range Interpretation Comments Chloride Lvl (test code = Chloride Lvl) 106 95-109 [facility] HospitalDmtzhmpJZSUVXZCJOOE9445-91-77 18:46:00 Test Item Value Reference Range Interpretation Comments Creatinine Lvl (test code = Creatinine 0.9 0.5-1.4 Lvl) [facility] HospitalWkpjwavAXQUGVRFOSUD7857-32-20 18:46:00 Test Item Value Reference Range Interpretation Comments Potassium Lvl (test code = Potassium 4.2 3.5-5.1 Lvl) [facility] HospitalMfnxspkRFPDLIXUAIUN6046-08-84 18:46:00 Test Item Value Reference Range Interpretation Comments Sodium Lvl (test code = Sodium Lvl) 139 135-145 [facility] HospitalKtwlzqfDIUAMCYTBMAK8243-87-44 18:46:00 Test Item Value Reference Range Interpretation Comments CO2 (test code = CO2) 24 24-32 [facility] HospitalKstcjbpFBWOLFRFZXOU8405-61-95 18:46:00 Test Item Value Reference Range Interpretation Comments BUN (test code = BUN) 16 7-22 [facility] HospitalBgxhqnjBJSCUJWBPPDN1326-55-24 18:46:00 Test Item Value Reference Range Interpretation Comments Glucose Lvl (test code = Glucose Lvl) 141 70-99 [facility] HospitalHfrqgvvYXIZVLRKICFM8592-47-22 18:46:00 Test Item Value Reference Range Interpretation Comments Albumin Lvl (test code = Albumin Lvl) 3.6 3.5-5.0 [facility] HospitalNjqroexOURNHZRCCIRQ5399-38-88 18:46:00 Test Item Value Reference Range Interpretation Comments Alk Phos (test code = Alk Phos) 65 39-136 [facility] HospitalHsccjtmVZEAXZVZZHPT7599-93-77 18:46:00 Test Item Value Reference Range Interpretation Comments Bili Total (test code = Bili Total) 0.3 0.2-1.3 [facility] HospitalPgtouewQKVINYRGHGTE2900-80-05 18:46:00 Test Item Value Reference Range Interpretation Comments ALT (test code = ALT) 100 See_Comment [Auto mated message] The system which ge nerated this result transmit elizabeth reference range : <=65. The reference range was not used to interpr et this result as lukas l/abnormal. [facility] HospitalYcxqtsqATSXYZQPWIHR8175-21-78 18:46:00 Test Item Value Reference Range Interpretation Comments AST (test code = AST) 53 See_Comment [Auto mated message] The system which ge nerated this result transmit elizabeth reference range : <=37. The reference range was not used to interpr et this result as lukas l/abnormal. [facility] HospitalZojkzwhIAOHEFKJWXJK2858-61-59 18:46:00 Test Item Value Reference Range Interpretation Comments Total Protein (test code = Total 6.9 6.4-8.4 Protein) [facility]GmblshsMXLAQRKRSC1273-80-01 18:46:00 Test Item Value Reference Range Interpretation Comments Eosinophils (test code = 4.2 See_Comment [A utomated message] The Eosinophils) system which ge nerated this result tra nsmitted reference range : <=4.0. The reference r mitra was not used to int erpret this result as normal/abnormal . [facility] SouthJmzwsnjQIZLSKKJFU3337-51-30 18:46:00 Test Item Value Reference Range Interpretation Comments Segs (test code = Segs) 56.4 45.0-75.0 [facility] SouthVgzcoteFTUBNMCERP0059-01-95 18:46:00 Test Item Value Reference Range Interpretation Comments Monocytes (test code = Monocytes) 10.3 2.0-12.0 [facility] SouthQxtjtwoDBGLDYTHDT6972-59-88 18:46:00 Test Item Value Reference Range Interpretation Comments Lymphocytes (test code = Lymphocytes) 28.0 20.0-40.0 [facility] SouthOvlpoqyZFCRTFVPFR7664-98-68 18:46:00 Test Item Value Reference Range Interpretation Comments Monocytes # (test code 0.5 See_Comment [Aut omated message] The = Monocytes #) system which generated this result tra nsmitted reference range : <=0.8. The reference r mitra was not used to int erpret this result as normal/abnormal . [facility] SouthNzjoihhEDIUKXPWFQ9524-93-19 18:46:00 Test Item Value Reference Range Interpretation Comments Basophils (test code = 1.1 See_Comment [Aut omated message] The Basophils) system which ge nerated this result tra nsmitted reference range : <=1.0. The reference r mitra was not used to int erpret this result as normal/abnormal . [facility] SouthKrafsxsXCNTBIWWSC1669-02-96 18:46:00 Test Item Value Reference Range Interpretation Comments Lymphocytes # (test code = Lymphocytes 1.5 1.0-5.5 #) [facility] SouthBfqvjapHBWCMJCQUN7462-44-17 18:46:00 Test Item Value Reference Range Interpretation Comments Segs-Bands # (test code = Segs-Bands #) 2.9 1.5-8.1 [facility] SouthVephppbBLMUPWSUTI2199-12-14 18:46:00 Test Item Value Reference Range Interpretation Comments Eosinophils # (test code 0.2 See_Comment [A utomated message] The = Eosinophils #) system whic h generated this result tra nsmitted reference range : <=0.5. The reference r mitra was not used to int erpret this result as normal/abnormal . [facility] SouthTwodpejIKBZVBSLOG3366-21-60 18:46:00 Test Item Value Reference Range Interpretation Comments Basophils # (test code 0.1 See_Comment [Aut omated message] The = Basophils #) system which generated this result tra nsmitted reference range : <=0.2. The reference r mitra was not used to int erpret this result as normal/abnormal . [facility] SouthWtddbgqVBTODWACZO6108-50-36 18:46:00 Test Item Value Reference Range Interpretation Comments PT (test code = PT) 11.2 s 12.0-14.7 [facility] SouthZlmtsrhHUHXKAFONS3817-66-15 18:46:00 Test Item Value Reference Range Interpretation Comments INR (test code = INR) 0.82 0.85-1.17 [facility] SouthKhydageCKNTKTHDDX9472-24-15 18:46:00 Test Item Value Reference Range Interpretation Comments PTT (test code = PTT) 28.6 s 22.9-35.8 [facility] SouthMdkdxdsYFAJQLNGQG4212-32-82 18:46:00 Test Item Value Reference Range Interpretation Comments MPV (test code = MPV) 8.1 7.4-10.4 [facility] SouthRorbwlfEYKWZTRPDZ5650-42-51 18:46:00 Test Item Value Reference Range Interpretation Comments Platelet (test code = Platelet) 301 099-450 [facility] AreaPbyecnpFJWXLWXPHN2150-90-88 18:46:00 Test Item Value Reference Range Interpretation Comments RDW (test code = RDW) 14.5 11.5-14.5 [facility]LlnlpscSWCJUKUKGJ1602-13-49 18:46:00 Test Item Value Reference Range Interpretation Comments RBC (test code = RBC) 4.84 4.70-6.10 [facility]XtmptjgGNUAOOLAEG3277-83-59 18:46:00 Test Item Value Reference Range Interpretation Comments Hgb (test code = Hgb) 14.4 14.0-18.0 [facility] HospitalYqgkijcFFAORXMCHK6238-01-07 18:46:00 Test Item Value Reference Range Interpretation Comments WBC (test code = WBC) 5.2 3.7-10.4 [facility] SouthDvgupmgWLXADEWAGM2833-28-20 18:46:00 Test Item Value Reference Range Interpretation Comments MCH (test code = MCH) 29.8 pg 27.0-31.0 [facility] HospitalHkqreprAZFXBZHMZS2051-91-92 18:46:00 Test Item Value Reference Range Interpretation Comments MCV (test code = MCV) 92.0 80.0-94.0 [facility] AreaCxnzveyCVTSSZECNX6501-54-43 18:46:00 Test Item Value Reference Range Interpretation Comments Hct (test code = Hct) 44.5 42.0-54.0 [facility] AreaNiqzgusPLSBNYIMYJ6523-74-37 18:46:00 Test Item Value Reference Range Interpretation Comments MCHC (test code = MCHC) 32.4 32.0-36.0 [facility] AreaFxzrbznLBZZKZMHZW1742-91-00 18:46:00 Test Item Value Reference Range Interpretation Comments [employer] [place]-Hep C Ab (test Negative *NA*(07/22/14 code = [employer] [place]-Hep C 1:46 PM) Ab) [facility] [id number] 18:46:00 Test Item Value Reference Range Interpretation Comments UA Urobilinogen (test code = UA <=1.0 mg/dL 0.1-1.0 Urobilinogen) [facility] [id number] 18:46:00 Test Item Value Reference Range Interpretation Comments UA Sq Epi (test code = UA Sq Epi) None [facility] [id number] 18:46:00 Test Item Value Reference Range Interpretation Comments UA Leuk Est (test Negative (07/22/14 1:46 code = UA Leuk Est) PM) [facility] AND [id number] 18:46:00 Test Item Value Reference Range Interpretation Comments UA Nitrite (test code Negative (07/22/14 1:46 = UA Nitrite) PM) [facility] AND [id number] 18:46:00 Test Item Value Reference Range Interpretation Comments UA Blood (test code = Negative (07/22/14 1:46 UA Blood) PM) [facility] AND [id number] 18:46:00 Test Item Value Reference Range Interpretation Comments UA Ketones (test code = UA Negative mg/dL Ketones) [facility] AND [id number] 18:46:00 Test Item Value Reference Range Interpretation Comments UA Bili (test code = Negative *NA*(07/22/14 UA Bili) 1:46 PM) [facility] AND [id number] 18:46:00 Test Item Value Reference Range Interpretation Comments UA Bacteria (test code = UA Occasional /HPF Bacteria) [facility] AND [id number] 18:46:00 Test Item Value Reference Range Interpretation Comments UA RBC (test code = no gt See_Comment [Automa elizabeth message] The UA RBC) system which ge nerated this result transmit elizabeth reference range : <=2. The reference range was not used to interpr et this result as lukas l/abnormal. [facility] AND AWFLQ5612-83-23 18:46:00 Test Item Value Reference Range Interpretation Comments UA WBC (test code = 1 See_Comment [Automa elizabeth message] The UA WBC) system which ge nerated this result transmit elizabeth reference range : <=5. The reference range was not used to interpr et this result as lukas l/abnormal. [facility] AND [id number] 18:46:00 Test Item Value Reference Range Interpretation Comments UA Glucose (test code = UA Glucose) 30 mg/dL [facility] AND [id number] 18:46:00 Test Item Value Reference Range Interpretation Comments UA Protein (test code = UA Negative mg/dL Protein) [facility] AND [id number] 18:46:00 Test Item Value Reference Range Interpretation Comments UA pH (test code = UA pH) 6.5 5.0-8.0 [facility] [id number] 18:46:00 Test Item Value Reference Range Interpretation Comments UA Turbidity (test code = Clear (07/22/14 1:46 UA Turbidity) PM) [facility] [id number] 18:46:00 Test Item Value Reference Range Interpretation Comments UA Spec Grav (test code = UA Spec Grav) 1.010 [facility] AND [id number] 18:46:00 Test Item Value Reference Range Interpretation Comments UA Color (test code = Light Yellow UA Color) *NA*(07/22/14 1:46 PM) [facility]annCHE[facility] [id number] 18:46:00 Test Item Value Reference Range Interpretation Comments Magnesium Lvl (test code = Magnesium 1.8 1.8-2.4 Lvl) [facility] [facility]ep[facility]NDWTJYZMBTRZ9763-37-61 18:46:00 Test Item Value Reference Range Interpretation Comments AGAP (test code = AGAP) 13.2 10.0-20.0 [facility]CjkoeeuOZNWAJOHWVQT2914-19-46 18:46:00 Test Item Value Reference Range Interpretation Comments B/C Ratio (test code = B/C Ratio) 18 6-25 [facility] HospitalVgbwuznPLBMMVUTMAOV5589-71-66 18:46:00 Test Item Value Reference Range Interpretation Comments A/G Ratio (test code = A/G Ratio) 1.1 0.7-1.6 [facility] HospitalMpiixwkQGKHEUCQJOHO0406-90-18 18:46:00 Test Item Value Reference Range Interpretation Comments Globulin (test code = Globulin) 3.3 2.0-4.0 [facility] HospitalRktyajpICEUHMGFJYAX9311-10-25 18:46:00 Test Item Value Reference Range Interpretation Comments eGFR (test code = eGFR) 99 [facility] HospitalQfpcozmGVGXJCSKRCTA8597-93-40 18:46:00 Test Item Value Reference Range Interpretation Comments Calcium Lvl (test code = Calcium Lvl) 9.0 8.5-10.5 [facility] HospitalAgwimxmYNWWKTKCCKGX1560-12-38 18:46:00 Test Item Value Reference Range Interpretation Comments Chloride Lvl (test code = Chloride Lvl) 106 95-109 [facility] HospitalIuqohsbCEXGAOLABRKH4598-17-42 18:46:00 Test Item Value Reference Range Interpretation Comments Creatinine Lvl (test code = Creatinine 0.9 0.5-1.4 Lvl) [facility] HospitalSjffswaBBDJTYMRQQRO8318-89-33 18:46:00 Test Item Value Reference Range Interpretation Comments Potassium Lvl (test code = Potassium 4.2 3.5-5.1 Lvl) [facility] HospitalPbbtnnvWZXJMDHFYPRC0847-03-42 18:46:00 Test Item Value Reference Range Interpretation Comments Sodium Lvl (test code = Sodium Lvl) 139 135-145 [facility] HospitalOtvfzcsFXKHCOKZWDWX1744-31-39 18:46:00 Test Item Value Reference Range Interpretation Comments CO2 (test code = CO2) 24 24-32 [facility] HospitalGndlxgkKENHWZLSMRTS2841-88-05 18:46:00 Test Item Value Reference Range Interpretation Comments BUN (test code = BUN) 16 7-22 [facility] HospitalFgjbwnkARXOUCRYCYME6065-96-00 18:46:00 Test Item Value Reference Range Interpretation Comments Glucose Lvl (test code = Glucose Lvl) 141 70-99 [facility] HospitalHpvatbvJKSPFYIVQGDE6316-29-56 18:46:00 Test Item Value Reference Range Interpretation Comments Albumin Lvl (test code = Albumin Lvl) 3.6 3.5-5.0 [facility] HospitalPsmnshnGUHBPYYTOUVI0096-38-98 18:46:00 Test Item Value Reference Range Interpretation Comments Alk Phos (test code = Alk Phos) 65 39-136 [facility] HospitalFzfllilERIJWRNPHGLX1339-65-10 18:46:00 Test Item Value Reference Range Interpretation Comments Bili Total (test code = Bili Total) 0.3 0.2-1.3 [facility] HospitalSfzzauqLQAWZVVJQRWX5229-47-15 18:46:00 Test Item Value Reference Range Interpretation Comments ALT (test code = ALT) 100 See_Comment [Auto mated message] The system which ge nerated this result transmit elizabeth reference range : <=65. The reference range was not used to interpr et this result as lukas l/abnormal. [facility] HospitalTbkxykuJWINNNUIMSLE2052-90-00 18:46:00 Test Item Value Reference Range Interpretation Comments AST (test code = AST) 53 See_Comment [Auto mated message] The system which ge nerated this result transmit elizabeth reference range : <=37. The reference range was not used to interpr et this result as lukas l/abnormal. [facility] HospitalFviumgsUCUHOQGZMROA4564-10-64 18:46:00 Test Item Value Reference Range Interpretation Comments Total Protein (test code = Total 6.9 6.4-8.4 Protein) [facility]YykpaxrKTWGJKVYTS9510-07-89 18:46:00 Test Item Value Reference Range Interpretation Comments Eosinophils (test code = 4.2 See_Comment [A utomated message] The Eosinophils) system which ge nerated this result tra nsmitted reference range : <=4.0. The reference r mitra was not used to int erpret this result as normal/abnormal . [facility] SouthFnfomuwBOIMLKKLWO3689-51-53 18:46:00 Test Item Value Reference Range Interpretation Comments Segs (test code = Segs) 56.4 45.0-75.0 [facility] SouthBriupjgYROHMYIHKX9276-21-85 18:46:00 Test Item Value Reference Range Interpretation Comments Monocytes (test code = Monocytes) 10.3 2.0-12.0 [facility] SouthMjaljdwPQHMQGAHGT0114-29-08 18:46:00 Test Item Value Reference Range Interpretation Comments Lymphocytes (test code = Lymphocytes) 28.0 20.0-40.0 [facility] SouthQcblytlSEZNIUVWEU2760-05-34 18:46:00 Test Item Value Reference Range Interpretation Comments Monocytes # (test code 0.5 See_Comment [Aut omated message] The = Monocytes #) system which generated this result tra nsmitted reference range : <=0.8. The reference r mitra was not used to int erpret this result as normal/abnormal . [facility] SouthWxamtmyYDTIXUGVWN4083-71-76 18:46:00 Test Item Value Reference Range Interpretation Comments Basophils (test code = 1.1 See_Comment [Aut omated message] The Basophils) system which ge nerated this result tra nsmitted reference range : <=1.0. The reference r mitra was not used to int erpret this result as normal/abnormal . [facility] SouthIgilghnKUUEIFOFBR1256-06-24 18:46:00 Test Item Value Reference Range Interpretation Comments Lymphocytes # (test code = Lymphocytes 1.5 1.0-5.5 #) [facility] SouthEymamivLXXEVRWNLJ6671-26-78 18:46:00 Test Item Value Reference Range Interpretation Comments Segs-Bands # (test code = Segs-Bands #) 2.9 1.5-8.1 [facility] SouthFfdwsunXGPELOTHMI2634-81-38 18:46:00 Test Item Value Reference Range Interpretation Comments Eosinophils # (test code 0.2 See_Comment [A utomated message] The = Eosinophils #) system whic h generated this result tra nsmitted reference range : <=0.5. The reference r mitra was not used to int erpret this result as normal/abnormal . [facility] SouthTqdfvwnGHWPFSIMDF5752-83-63 18:46:00 Test Item Value Reference Range Interpretation Comments Basophils # (test code 0.1 See_Comment [Aut omated message] The = Basophils #) system which generated this result tra nsmitted reference range : <=0.2. The reference r mitra was not used to int erpret this result as normal/abnormal . [facility] SouthGehwfacRCIFSKRVNM1373-76-38 18:46:00 Test Item Value Reference Range Interpretation Comments PT (test code = PT) 11.2 s 12.0-14.7 [facility] SouthRuxgsghMTPMNPEWAH6332-81-92 18:46:00 Test Item Value Reference Range Interpretation Comments INR (test code = INR) 0.82 0.85-1.17 [facility] SouthUprstgfMHYUVZSWFW7170-80-94 18:46:00 Test Item Value Reference Range Interpretation Comments PTT (test code = PTT) 28.6 s 22.9-35.8 [facility] SouthXyinzxkAMPVRIOHRG6526-56-82 18:46:00 Test Item Value Reference Range Interpretation Comments MPV (test code = MPV) 8.1 7.4-10.4 [facility] SouthOrcaqtyRMUZZWYDXH7291-43-29 18:46:00 Test Item Value Reference Range Interpretation Comments Platelet (test code = Platelet) 301 133-450 [facility] SouthUikvgeqQHKBBTTPQC9138-88-53 18:46:00 Test Item Value Reference Range Interpretation Comments RDW (test code = RDW) 14.5 11.5-14.5 [facility] SouthHxxtbzqBKGTGJCEYA3287-22-57 18:46:00 Test Item Value Reference Range Interpretation Comments RBC (test code = RBC) 4.84 4.70-6.10 [facility] SouthNbyjqerGULKUPNRWZ2246-83-40 18:46:00 Test Item Value Reference Range Interpretation Comments Hgb (test code = Hgb) 14.4 14.0-18.0 [facility] SouthAkkqvmxXWTHKNSBRV4528-50-20 18:46:00 Test Item Value Reference Range Interpretation Comments WBC (test code = WBC) 5.2 3.7-10.4 [facility] AreaBikxqluXDWUSBFPRI6020-52-47 18:46:00 Test Item Value Reference Range Interpretation Comments MCH (test code = MCH) 29.8 pg 27.0-31.0 [facility]HylzbkzGMTYBXVNYP4152-24-02 18:46:00 Test Item Value Reference Range Interpretation Comments MCV (test code = MCV) 92.0 80.0-94.0 [facility] AreaJdrzaapRKJKCWWILE2866-51-70 18:46:00 Test Item Value Reference Range Interpretation Comments Hct (test code = Hct) 44.5 42.0-54.0 [facility]PisfehbRBMSCQQNNM4075-30-28 18:46:00 Test Item Value Reference Range Interpretation Comments MCHC (test code = MCHC) 32.4 32.0-36.0 [facility] AreaGhlryugELIDQNNOCO7557-06-54 18:46:00 Test Item Value Reference Range Interpretation Comments [place]-Hep C Ab (test Negative *NA*(07/22/14 code = [place]-Hep C 1:46 PM) Ab) [facility] AND [id number] 18:46:00 Test Item Value Reference Range Interpretation Comments UA Urobilinogen (test code = UA <=1.0 mg/dL 0.1-1.0 Urobilinogen) [facility] AND [id number] 18:46:00 Test Item Value Reference Range Interpretation Comments UA Sq Epi (test code = UA Sq Epi) None Seen [facility] AND [id number] 18:46:00 Test Item Value Reference Range Interpretation Comments UA Leuk Est (test Negative (07/22/14 1:46 code = UA Leuk Est) PM) [facility] AND [id number] 18:46:00 Test Item Value Reference Range Interpretation Comments UA Nitrite (test code Negative (07/22/14 1:46 = UA Nitrite) PM) [facility] AND [id number] 18:46:00 Test Item Value Reference Range Interpretation Comments UA Blood (test code = Negative (07/22/14 1:46 UA Blood) PM) [facility] AND [id number] 18:46:00 Test Item Value Reference Range Interpretation Comments UA Ketones (test code = UA Negative mg/dL Ketones) [facility] AND [id number] 18:46:00 Test Item Value Reference Range Interpretation Comments UA Bili (test code = Negative *NA*(07/22/14 UA Bili) 1:46 PM) [facility] AND [id number] 18:46:00 Test Item Value Reference Range Interpretation Comments UA Bacteria (test code = UA Occasional /HPF Bacteria) [facility] AND [id number] 18:46:00 Test Item Value Reference Range Interpretation Comments UA RBC (test code = no gt See_Comment [Automa elizabeth message] The UA RBC) system which ge nerated this result transmit elizabeth reference range : <=2. The reference range was not used to interpr et this result as lukas l/abnormal. [facility] AND [id number] 18:46:00 Test Item Value Reference Range Interpretation Comments UA WBC (test code = 1 See_Comment [Automa elizabeth message] The UA WBC) system which ge nerated this result transmit elizabeth reference range : <=5. The reference range was not used to interpr et this result as lukas l/abnormal. [facility] AND [id number] 18:46:00 Test Item Value Reference Range Interpretation Comments UA Glucose (test code = UA Glucose) 30 mg/dL [facility] AND [id number] 18:46:00 Test Item Value Reference Range Interpretation Comments UA Protein (test code = UA Negative mg/dL Protein) [facility] AND [id number] 18:46:00 Test Item Value Reference Range Interpretation Comments UA pH (test code = UA pH) 6.5 5.0-8.0 [facility] AND [id number] 18:46:00 Test Item Value Reference Range Interpretation Comments UA Turbidity (test code = Clear (07/22/14 1:46 UA Turbidity) PM) [facility] AND [id number] 18:46:00 Test Item Value Reference Range Interpretation Comments UA Spec Grav (test code = UA Spec Grav) 1.010 [facility] AND [id number] 18:46:00 Test Item Value Reference Range Interpretation Comments UA Color (test code = Light Yellow UA Color) *NA*(07/22/14 1:46 PM) [facility]2015-06-09 18:46:00 Test Item Value Reference Range Interpretation Comments Magnesium Lvl (test code = Magnesium 1.8 1.8-2.4 Lvl) [facility] HospitalCwegkxjPEXPWMVMQMGI8199-33-13 18:46:00 Test Item Value Reference Range Interpretation Comments AGAP (test code = AGAP) 13.2 10.0-20.0 [facility] HospitalEejfjvbOZGMVWOBXDVI7271-47-17 18:46:00 Test Item Value Reference Range Interpretation Comments B/C Ratio (test code = B/C Ratio) 18 6-25 [facility] HospitalRehzidmDVDFSRPMWZXD9232-29-74 18:46:00 Test Item Value Reference Range Interpretation Comments A/G Ratio (test code = A/G Ratio) 1.1 0.7-1.6 [facility] HospitalAlrwaeqDCNNFMYOSQBO9210-64-84 18:46:00 Test Item Value Reference Range Interpretation Comments Globulin (test code = Globulin) 3.3 2.0-4.0 [facility] HospitalAfjypuzUUYKVAOQTPZI5757-66-36 18:46:00 Test Item Value Reference Range Interpretation Comments eGFR (test code = eGFR) 99 [facility] HospitalMsesgurALJPSNVFLBHU8989-91-45 18:46:00 Test Item Value Reference Range Interpretation Comments Calcium Lvl (test code = Calcium Lvl) 9.0 8.5-10.5 [facility] HospitalDhabkniLXDXSGYFIZEP6506-01-46 18:46:00 Test Item Value Reference Range Interpretation Comments Chloride Lvl (test code = Chloride Lvl) 106 95-109 [facility] HospitalXjfpldyNPEHFSUBJVYR3806-16-34 18:46:00 Test Item Value Reference Range Interpretation Comments Creatinine Lvl (test code = Creatinine 0.9 0.5-1.4 Lvl) [facility] HospitalBaeluhxWEOXPETOWTGG5541-20-65 18:46:00 Test Item Value Reference Range Interpretation Comments Potassium Lvl (test code = Potassium 4.2 3.5-5.1 Lvl) [facility] HospitalDfygerwYOPNYOZDRWYM1625-89-07 18:46:00 Test Item Value Reference Range Interpretation Comments Sodium Lvl (test code = Sodium Lvl) 139 135-145 [facility] HospitalOsbfhiyWSFMEHTZISWL4937-74-40 18:46:00 Test Item Value Reference Range Interpretation Comments CO2 (test code = CO2) 24 24-32 [facility] HospitalVmnuvrnJFJTLUVUZTGJ5333-50-00 18:46:00 Test Item Value Reference Range Interpretation Comments BUN (test code = BUN) 16 7-22 [facility] HospitalSfnmzbkGIBDMUSHMZOR7357-18-90 18:46:00 Test Item Value Reference Range Interpretation Comments Glucose Lvl (test code = Glucose Lvl) 141 70-99 [facility] HospitalWoafatsGRISVVENAAJE5059-59-68 18:46:00 Test Item Value Reference Range Interpretation Comments Albumin Lvl (test code = Albumin Lvl) 3.6 3.5-5.0 [facility] HospitalGrnojlhKKPYXKVDRPFN9844-19-00 18:46:00 Test Item Value Reference Range Interpretation Comments Alk Phos (test code = Alk Phos) 65 39-136 [facility] HospitalDehnbetVFMOQWGEAHHX7929-32-25 18:46:00 Test Item Value Reference Range Interpretation Comments Bili Total (test code = Bili Total) 0.3 0.2-1.3 [facility] HospitalEimvwgtAWTIVKLCHENX6447-51-77 18:46:00 Test Item Value Reference Range Interpretation Comments ALT (test code = ALT) 100 See_Comment [Auto mated message] The system which ge nerated this result transmit elizabeth reference range : <=65. The reference range was not used to interpr et this result as lukas l/abnormal. [facility] HospitalIbdxveyGNEMNSZTQUJN8194-17-65 18:46:00 Test Item Value Reference Range Interpretation Comments AST (test code = AST) 53 See_Comment [Auto mated message] The system which ge nerated this result transmit elizabeth reference range : <=37. The reference range was not used to interpr et this result as lukas l/abnormal. [facility] HospitalJiqkpfdPJXXFMUZVAHU2433-80-02 18:46:00 Test Item Value Reference Range Interpretation Comments Total Protein (test code = Total 6.9 6.4-8.4 Protein) [facility]MseslneEOBCVZBBFU1285-22-13 18:46:00 Test Item Value Reference Range Interpretation Comments Eosinophils (test code = 4.2 See_Comment [A utomated message] The Eosinophils) system which ge nerated this result tra nsmitted reference range : <=4.0. The reference r mitra was not used to int erpret this result as normal/abnormal . [facility] SouthKwmqmkuIDGILDMDVN2619-90-62 18:46:00 Test Item Value Reference Range Interpretation Comments Segs (test code = Segs) 56.4 45.0-75.0 [facility] SouthDuhrjzkEGTQXKFBCI9701-71-84 18:46:00 Test Item Value Reference Range Interpretation Comments Monocytes (test code = Monocytes) 10.3 2.0-12.0 [facility] SouthWcxrgjiGKWSXPFYLJ8800-12-53 18:46:00 Test Item Value Reference Range Interpretation Comments Lymphocytes (test code = Lymphocytes) 28.0 20.0-40.0 [facility] SouthIeozypeCANOBICNPR1609-33-00 18:46:00 Test Item Value Reference Range Interpretation Comments Monocytes # (test code 0.5 See_Comment [Aut omated message] The = Monocytes #) system which generated this result tra nsmitted reference range : <=0.8. The reference r mitra was not used to int erpret this result as normal/abnormal . [facility] SouthDhzwqxfVBQYTENJUL2172-57-31 18:46:00 Test Item Value Reference Range Interpretation Comments Basophils (test code = 1.1 See_Comment [Aut omated message] The Basophils) system which ge nerated this result tra nsmitted reference range : <=1.0. The reference r mitra was not used to int erpret this result as normal/abnormal . [facility] SouthLwneykqGAVSDBZGSA5400-23-43 18:46:00 Test Item Value Reference Range Interpretation Comments Lymphocytes # (test code = Lymphocytes 1.5 1.0-5.5 #) [facility] SouthXjvxvvwHBMAAIZKXH5261-97-80 18:46:00 Test Item Value Reference Range Interpretation Comments Segs-Bands # (test code = Segs-Bands #) 2.9 1.5-8.1 [facility] SouthIdothlvLUWSNMOBIS2777-02-96 18:46:00 Test Item Value Reference Range Interpretation Comments Eosinophils # (test code 0.2 See_Comment [A utomated message] The = Eosinophils #) system ic h generated this result tra nsmitted reference range : <=0.5. The reference r mitra was not used to int erpret this result as normal/abnormal . [facility] SouthOfigbbuLZFPTJCJYE6178-72-68 18:46:00 Test Item Value Reference Range Interpretation Comments Basophils # (test code 0.1 See_Comment [Aut omated message] The = Basophils #) system which generated this result tra nsmitted reference range : <=0.2. The reference r mitra was not used to int erpret this result as normal/abnormal . [facility] SouthOocxxcjYGFVQDLZTM4664-91-14 18:46:00 Test Item Value Reference Range Interpretation Comments PT (test code = PT) 11.2 s 12.0-14.7 [facility] SouthMievhwaOBMTQEDYIS0983-15-49 18:46:00 Test Item Value Reference Range Interpretation Comments INR (test code = INR) 0.82 0.85-1.17 [facility] SouthEkumfcxWIKZXMBLRS4642-43-60 18:46:00 Test Item Value Reference Range Interpretation Comments PTT (test code = PTT) 28.6 s 22.9-35.8 [facility] SouthVqdqzjsYAWVYQLSBN7008-71-21 18:46:00 Test Item Value Reference Range Interpretation Comments MPV (test code = MPV) 8.1 7.4-10.4 [facility] SouthIdgzugqQGGKJYAGKO0578-16-99 18:46:00 Test Item Value Reference Range Interpretation Comments Platelet (test code = Platelet) 301 133-450 [facility] SouthHzbxqajHCPDFVTDOS7335-57-95 18:46:00 Test Item Value Reference Range Interpretation Comments RDW (test code = RDW) 14.5 11.5-14.5 [facility] SouthUqqzjzcLIAYOLDAIE2837-61-37 18:46:00 Test Item Value Reference Range Interpretation Comments RBC (test code = RBC) 4.84 4.70-6.10 [facility] SouthNtqdnlzEAVKNMUQKI0084-77-93 18:46:00 Test Item Value Reference Range Interpretation Comments Hgb (test code = Hgb) 14.4 14.0-18.0 [facility] SouthFhpvvkoNAUUXHLPWI6013-12-25 18:46:00 Test Item Value Reference Range Interpretation Comments WBC (test code = WBC) 5.2 3.7-10.4 [facility] SouthPenrwrtPGPMDWIZBR4124-40-41 18:46:00 Test Item Value Reference Range Interpretation Comments MCH (test code = MCH) 29.8 pg 27.0-31.0 [facility] SouthSfhziygKFVTUBYZEQ5748-22-90 18:46:00 Test Item Value Reference Range Interpretation Comments MCV (test code = MCV) 92.0 80.0-94.0 [facility] SouthCpjixbwMHGEDOREID6372-61-53 18:46:00 Test Item Value Reference Range Interpretation Comments Hct (test code = Hct) 44.5 42.0-54.0 [facility] AreaLypnigoVKRHQNGOEX1168-48-75 18:46:00 Test Item Value Reference Range Interpretation Comments MCHC (test code = MCHC) 32.4 32.0-36.0 [facility]GqzamdyHQSCOFZCPC9298-38-36 18:46:00 Test Item Value Reference Range Interpretation Comments [employer] [place]-Hep C Ab (test Negative *NA*(07/22/14 code = [place]-Hep C 1:46 PM) Ab) [facility] AND [id number] 18:46:00 Test Item Value Reference Range Interpretation Comments UA Urobilinogen (test code = UA <=1.0 mg/dL 0.1-1.0 Urobilinogen) [facility] AND [id number] 18:46:00 Test Item Value Reference Range Interpretation Comments UA Sq Epi (test code = UA Sq Epi) None Seen [facility] AND [id number] 18:46:00 Test Item Value Reference Range Interpretation Comments UA Leuk Est (test Negative (07/22/14 1:46 code = UA Leuk Est) PM) [facility] AND [id number] 18:46:00 Test Item Value Reference Range Interpretation Comments UA Nitrite (test code Negative (07/22/14 1:46 = UA Nitrite) PM) [facility] AND [id number] 18:46:00 Test Item Value Reference Range Interpretation Comments UA Blood (test code = Negative (07/22/14 1:46 UA Blood) PM) [facility] AND [id number] 18:46:00 Test Item Value Reference Range Interpretation Comments UA Ketones (test code = UA Negative mg/dL Ketones) [facility] AND [id number] 18:46:00 Test Item Value Reference Range Interpretation Comments UA Bili (test code = Negative *NA*(07/22/14 UA Bili) 1:46 PM) [facility] AND EORFR9494-03-17 18:46:00 Test Item Value Reference Range Interpretation Comments UA Bacteria (test code = UA Occasional /HPF Bacteria) [facility] AND [id number] 18:46:00 Test Item Value Reference Range Interpretation Comments UA RBC (test code = no gt See_Comment [Automa elizabeth message] The UA RBC) system which ge nerated this result transmit elizabeth reference range : <=2. The reference range was not used to interpr et this result as lukas l/abnormal. [facility] AND [id number] 18:46:00 Test Item Value Reference Range Interpretation Comments UA WBC (test code = 1 See_Comment [Automa elizabeth message] The UA WBC) system which ge nerated this result transmit elizabeth reference range : <=5. The reference range was not used to interpr et this result as lukas l/abnormal. [facility] AND [id number] 18:46:00 Test Item Value Reference Range Interpretation Comments UA Glucose (test code = UA Glucose) 30 mg/dL [facility] AND [id number] 18:46:00 Test Item Value Reference Range Interpretation Comments UA Protein (test code = UA Negative mg/dL Protein) [facility] AND [id number] 18:46:00 Test Item Value Reference Range Interpretation Comments UA pH (test code = UA pH) 6.5 5.0-8.0 [facility] AND [id number] 18:46:00 Test Item Value Reference Range Interpretation Comments UA Turbidity (test code = Clear (07/22/14 1:46 UA Turbidity) PM) [facility] AND [id number] 18:46:00 Test Item Value Reference Range Interpretation Comments UA Spec Grav (test code = UA Spec Grav) 1.010 [facility] AND [id number] 18:46:00 Test Item Value Reference Range Interpretation Comments UA Color (test code = Light Yellow UA Color) *NA*(07/22/14 1:46 PM) [facility]annCHE[facility] [id number] 18:46:00 Test Item Value Reference Range Interpretation Comments Magnesium Lvl (test code = Magnesium 1.8 1.8-2.4 Lvl) [facility] CenterAqqzuznGTJNESMJSURU5955-29-18 18:46:00 Test Item Value Reference Range Interpretation Comments AGAP (test code = AGAP) 13.2 10.0-20.0 [facility]SldpjlqPBAHFZKONOCG5959-52-97 18:46:00 Test Item Value Reference Range Interpretation Comments B/C Ratio (test code = B/C Ratio) 18 6-25 [facility] HospitalZyztacdLQLHMSZIQUQK6452-44-15 18:46:00 Test Item Value Reference Range Interpretation Comments A/G Ratio (test code = A/G Ratio) 1.1 0.7-1.6 [facility] [facility]gjdeTOBFNIMDBYOW0380-14-81 18:46:00 Test Item Value Reference Range Interpretation Comments Globulin (test code = Globulin) 3.3 2.0-4.0 [facility]LiwgkvpEAYMHHWSDSBH3481-49-98 18:46:00 Test Item Value Reference Range Interpretation Comments eGFR (test code = eGFR) 99 [facility] HospitalHjykqkjCAFKMKKKBIGO2691-03-63 18:46:00 Test Item Value Reference Range Interpretation Comments Calcium Lvl (test code = Calcium Lvl) 9.0 8.5-10.5 [facility] HospitalSjpufrtJJPHZETRGKZN1030-81-55 18:46:00 Test Item Value Reference Range Interpretation Comments Chloride Lvl (test code = Chloride Lvl) 106 95-109 [facility] HospitalEpqkrnnYDXTSCOMXSVN1687-05-36 18:46:00 Test Item Value Reference Range Interpretation Comments Creatinine Lvl (test code = Creatinine 0.9 0.5-1.4 Lvl) [facility] HospitalVlfgrgeMKETDNQCHEBM9659-38-62 18:46:00 Test Item Value Reference Range Interpretation Comments Potassium Lvl (test code = Potassium 4.2 3.5-5.1 Lvl) [facility] HospitalUrbeusaRUSLBRKXZBPY7199-49-87 18:46:00 Test Item Value Reference Range Interpretation Comments Sodium Lvl (test code = Sodium Lvl) 139 135-145 [facility] HospitalZnvnkhvZVPXGFQCPDYO5178-75-46 18:46:00 Test Item Value Reference Range Interpretation Comments CO2 (test code = CO2) 24 24-32 [facility] HospitalNqtpdakQKYCPLTABULL6292-35-96 18:46:00 Test Item Value Reference Range Interpretation Comments BUN (test code = BUN) 16 7-22 [facility] HospitalMmvhgunTPQFWWWTYATY8530-49-62 18:46:00 Test Item Value Reference Range Interpretation Comments Glucose Lvl (test code = Glucose Lvl) 141 70-99 [facility] HospitalSxlxuiuRNUKQUOZAMZN2193-50-06 18:46:00 Test Item Value Reference Range Interpretation Comments Albumin Lvl (test code = Albumin Lvl) 3.6 3.5-5.0 [facility] HospitalEufaenqRICDJGHQZQGW4755-18-83 18:46:00 Test Item Value Reference Range Interpretation Comments Alk Phos (test code = Alk Phos) 65 39-136 [facility] HospitalUiikufkNKWMGJPLMIMA3907-67-21 18:46:00 Test Item Value Reference Range Interpretation Comments Bili Total (test code = Bili Total) 0.3 0.2-1.3 [facility] HospitalVsbzqkbCGPOEYWNYFWY3129-26-60 18:46:00 Test Item Value Reference Range Interpretation Comments ALT (test code = ALT) 100 See_Comment [Auto mated message] The system which ge nerated this result transmit elizabeth reference range : <=65. The reference range was not used to interpr et this result as lukas l/abnormal. [facility] HospitalXaffcmdCSTVMQVVOBRA5193-02-82 18:46:00 Test Item Value Reference Range Interpretation Comments AST (test code = AST) 53 See_Comment [Auto mated message] The system which ge nerated this result transmit elizabeth reference range : <=37. The reference range was not used to interpr et this result as lukas l/abnormal. [facility] HospitalSifllmgSDGMYEESVXHI1165-58-04 18:46:00 Test Item Value Reference Range Interpretation Comments Total Protein (test code = Total 6.9 6.4-8.4 Protein) [facility]RecsdwvYHMYKEPMVC2267-09-[facility] 18:46:00 Test Item Value Reference Range Interpretation Comments Eosinophils (test code = 4.2 See_Comment [A utomated message] The Eosinophils) system which ge nerated this result tra nsmitted reference range : <=4.0. The reference r mitra was not used to int erpret this result as normal/abnormal . [facility] SouthNdxzvqiKRAHMRXMRJ9262-88-67 18:46:00 Test Item Value Reference Range Interpretation Comments Segs (test code = Segs) 56.4 45.0-75.0 [facility] SouthKragtzgXJYVKMHLDB2705-34-12 18:46:00 Test Item Value Reference Range Interpretation Comments Monocytes (test code = Monocytes) 10.3 2.0-12.0 [facility] SouthYrawucwGBJMAQSEFP6669-32-32 18:46:00 Test Item Value Reference Range Interpretation Comments Lymphocytes (test code = Lymphocytes) 28.0 20.0-40.0 [facility] SouthNlhxegmBZAPOPSIRB2732-63-44 18:46:00 Test Item Value Reference Range Interpretation Comments Monocytes # (test code 0.5 See_Comment [Aut omated message] The = Monocytes #) system which generated this result tra nsmitted reference range : <=0.8. The reference r mitra was not used to int erpret this result as normal/abnormal . [facility] SouthUvxkmicIVYNYDHZJX1194-09-09 18:46:00 Test Item Value Reference Range Interpretation Comments Basophils (test code = 1.1 See_Comment [Aut omated message] The Basophils) system which ge nerated this result tra nsmitted reference range : <=1.0. The reference r mitra was not used to int erpret this result as normal/abnormal . [facility] SouthGyzrjemCIDXEOGEWX1959-69-35 18:46:00 Test Item Value Reference Range Interpretation Comments Lymphocytes # (test code = Lymphocytes 1.5 1.0-5.5 #) [facility] SouthIbjdqdeIJOEOQGJLZ9307-99-00 18:46:00 Test Item Value Reference Range Interpretation Comments Segs-Bands # (test code = Segs-Bands #) 2.9 1.5-8.1 [facility] SouthRnihdosAVBLBUWOCS1597-85-66 18:46:00 Test Item Value Reference Range Interpretation Comments Eosinophils # (test code 0.2 See_Comment [A utomated message] The = Eosinophils #) system whic h generated this result tra nsmitted reference range : <=0.5. The reference r mitra was not used to int erpret this result as normal/abnormal . [facility] SouthRfljtizLEAXFONHKW2919-36-60 18:46:00 Test Item Value Reference Range Interpretation Comments Basophils # (test code 0.1 See_Comment [Aut omated message] The = Basophils #) system which generated this result tra nsmitted reference range : <=0.2. The reference r mitra was not used to int erpret this result as normal/abnormal . [facility] SouthLvlfrrsKFDWYENEDS8688-37-49 18:46:00 Test Item Value Reference Range Interpretation Comments PT (test code = PT) 11.2 s 12.0-14.7 [facility] SouthQctxtegORSNALWFWF2854-64-65 18:46:00 Test Item Value Reference Range Interpretation Comments INR (test code = INR) 0.82 0.85-1.17 [facility] SouthRogxbptZCIVASWKHT2421-14-48 18:46:00 Test Item Value Reference Range Interpretation Comments PTT (test code = PTT) 28.6 s 22.9-35.8 [facility] AreaWshaubmKPLDRUACOM3785-33-90 18:46:00 Test Item Value Reference Range Interpretation Comments MPV (test code = MPV) 8.1 7.4-10.4 [facility] AreaGhjomlkEXRXKAOKDO8255-36-31 18:46:00 Test Item Value Reference Range Interpretation Comments Platelet (test code = Platelet) 301 133-450 [facility] AreaGlunhilTQBCYLFPIJ6307-73-26 18:46:00 Test Item Value Reference Range Interpretation Comments RDW (test code = RDW) 14.5 11.5-14.5 [facility] AreaTckrsbzYENGHNGVVN5203-98-11 18:46:00 Test Item Value Reference Range Interpretation Comments RBC (test code = RBC) 4.84 4.70-6.10 [facility] AreaOpnkgxeIYEBVELKQP2811-00-51 18:46:00 Test Item Value Reference Range Interpretation Comments Hgb (test code = Hgb) 14.4 14.0-18.0 [facility] AreaSkmhxbnFBRMANDSUH7933-76-97 18:46:00 Test Item Value Reference Range Interpretation Comments WBC (test code = WBC) 5.2 3.7-10.4 [facility] AreaQkthfbfWSPUNNPYGV6509-35-39 18:46:00 Test Item Value Reference Range Interpretation Comments MCH (test code = MCH) 29.8 pg 27.0-31.0 [facility] AreaBcjzkylOLKLARFWZR5113-14-21 18:46:00 Test Item Value Reference Range Interpretation Comments MCV (test code = MCV) 92.0 80.0-94.0 [facility] AreaMfwhsomSWKXQKAYXA7147-64-01 18:46:00 Test Item Value Reference Range Interpretation Comments Hct (test code = Hct) 44.5 42.0-54.0 [facility] AreaBxytlqiQIVWPEQGIC8027-10-21 18:46:00 Test Item Value Reference Range Interpretation Comments MCHC (test code = MCHC) 32.4 32.0-36.0 [facility] AreaEldkrsrWDNLFPLNDL5381-78-85 18:46:00 Test Item Value Reference Range Interpretation Comments [place]-Hep C Ab (test Negative *NA*(07/22/14 code = [place]-Hep C 1:46 PM) Ab) [facility]2015-06-09 18:46:00 Test Item Value Reference Range Interpretation Comments UA Urobilinogen (test code = UA <=1.0 mg/dL 0.1-1.0 Urobilinogen) [facility] AND [id number] 18:46:00 Test Item Value Reference Range Interpretation Comments UA Sq Epi (test code = UA Sq Epi) None Seen [facility] AND [id number] 18:46:00 Test Item Value Reference Range Interpretation Comments UA Leuk Est (test Negative (07/22/14 1:46 code = UA Leuk Est) PM) [facility] AND [id number] 18:46:00 Test Item Value Reference Range Interpretation Comments UA Nitrite (test code Negative (07/22/14 1:46 = UA Nitrite) PM) [facility] AND [id number] 18:46:00 Test Item Value Reference Range Interpretation Comments UA Blood (test code = Negative (07/22/14 1:46 UA Blood) PM) [facility] AND [id number] 18:46:00 Test Item Value Reference Range Interpretation Comments UA Ketones (test code = UA Negative mg/dL Ketones) [facility] AND [id number] 18:46:00 Test Item Value Reference Range Interpretation Comments UA Bili (test code = Negative *NA*(07/22/14 UA Bili) 1:46 PM) [facility] AND [id number] 18:46:00 Test Item Value Reference Range Interpretation Comments UA Bacteria (test code = UA Occasional /HPF Bacteria) [facility] AND [id number] 18:46:00 Test Item Value Reference Range Interpretation Comments UA RBC (test code = no gt See_Comment [Automa elizabeth message] The UA RBC) system which ge nerated this result transmit elizabeth reference range : <=2. The reference range was not used to interpr et this result as lukas l/abnormal. [facility] AND SZALE6024-12-35 18:46:00 Test Item Value Reference Range Interpretation Comments UA WBC (test code = 1 See_Comment [Automa elizabeth message] The UA WBC) system which ge nerated this result transmit elizabeth reference range : <=5. The reference range was not used to interpr et this result as lukas l/abnormal. [facility] AND [id number] 18:46:00 Test Item Value Reference Range Interpretation Comments UA Glucose (test code = UA Glucose) 30 mg/dL [facility] AND [id number] 18:46:00 Test Item Value Reference Range Interpretation Comments UA Protein (test code = UA Negative mg/dL Protein) [facility] AND [id number] 18:46:00 Test Item Value Reference Range Interpretation Comments UA pH (test code = UA pH) 6.5 5.0-8.0 [facility] AND [id number] 18:46:00 Test Item Value Reference Range Interpretation Comments UA Turbidity (test code = Clear (07/22/14 1:46 UA Turbidity) PM) [facility] AND [id number] 18:46:00 Test Item Value Reference Range Interpretation Comments UA Spec Grav (test code = UA Spec Grav) 1.010 [facility] AND [id number] 18:46:00 Test Item Value Reference Range Interpretation Comments UA Color (test code = Light Yellow UA Color) *NA*(07/22/14 1:46 PM) [facility] [id number] 18:46:00 Test Item Value Reference Range Interpretation Comments Magnesium Lvl (test code = Magnesium 1.8 1.8-2.4 Lvl) [facility]OoodywzMYFBUBXPDOIL5164-17-90 18:46:00 Test Item Value Reference Range Interpretation Comments AGAP (test code = AGAP) 13.2 10.0-20.0 [facility] HospitalYowhxxzWDVHICFZAYEP8934-80-62 18:46:00 Test Item Value Reference Range Interpretation Comments B/C Ratio (test code = B/C Ratio) 18 6-25 [facility] HospitalQdjasnhDJJPZHTSKCZU7343-47-03 18:46:00 Test Item Value Reference Range Interpretation Comments A/G Ratio (test code = A/G Ratio) 1.1 0.7-1.6 [facility] HospitalLzqjewkMQSFRDDKWGVI8225-77-18 18:46:00 Test Item Value Reference Range Interpretation Comments Globulin (test code = Globulin) 3.3 2.0-4.0 [facility] HospitalHcvawcmJCPPOFNVSGIW2305-90-99 18:46:00 Test Item Value Reference Range Interpretation Comments eGFR (test code = eGFR) 99 [facility] HospitalCdgxycwTCKKACHUOUBJ9589-29-83 18:46:00 Test Item Value Reference Range Interpretation Comments Calcium Lvl (test code = Calcium Lvl) 9.0 8.5-10.5 [facility] HospitalLqvdkkpBVVXYNVKPWSJ0489-14-63 18:46:00 Test Item Value Reference Range Interpretation Comments Chloride Lvl (test code = Chloride Lvl) 106 95-109 [facility] HospitalUhaeyorKLEHLPWIPKCX6125-15-72 18:46:00 Test Item Value Reference Range Interpretation Comments Creatinine Lvl (test code = Creatinine 0.9 0.5-1.4 Lvl) [facility] HospitalYxjcufjZGKGDXBXEXNU1907-79-45 18:46:00 Test Item Value Reference Range Interpretation Comments Potassium Lvl (test code = Potassium 4.2 3.5-5.1 Lvl) [facility] HospitalJlhqxnwVVYPYGHSVVJH8964-84-45 18:46:00 Test Item Value Reference Range Interpretation Comments Sodium Lvl (test code = Sodium Lvl) 139 135-145 [facility] HospitalAxjyuicZQTCZVMZTQZD2246-56-82 18:46:00 Test Item Value Reference Range Interpretation Comments CO2 (test code = CO2) 24 24-32 [facility] HospitalBdnowucNLRGRLHGFVTG9048-47-80 18:46:00 Test Item Value Reference Range Interpretation Comments BUN (test code = BUN) 16 7-22 [facility] HospitalDmsoyqtSNYJSUJUWXVK0871-48-56 18:46:00 Test Item Value Reference Range Interpretation Comments Glucose Lvl (test code = Glucose Lvl) 141 70-99 [facility] HospitalCakirmkPWFABXNIVYDS8504-33-22 18:46:00 Test Item Value Reference Range Interpretation Comments Albumin Lvl (test code = Albumin Lvl) 3.6 3.5-5.0 [facility] HospitalEsovwxqPUOLXSLFVPOC2951-98-28 18:46:00 Test Item Value Reference Range Interpretation Comments Alk Phos (test code = Alk Phos) 65 39-136 [facility] HospitalTkvwvznDFKMNCLYVEEK0093-77-24 18:46:00 Test Item Value Reference Range Interpretation Comments Bili Total (test code = Bili Total) 0.3 0.2-1.3 [facility] HospitalImegmjrTCTLPSSZRAPO9861-00-35 18:46:00 Test Item Value Reference Range Interpretation Comments ALT (test code = ALT) 100 See_Comment [Auto mated message] The system which ge nerated this result transmit elizabeth reference range : <=65. The reference range was not used to interpr et this result as lukas l/abnormal. [facility] HospitalBhflaigKXREBRVNENQO5601-53-04 18:46:00 Test Item Value Reference Range Interpretation Comments AST (test code = AST) 53 See_Comment [Auto mated message] The system which ge nerated this result transmit elizabeth reference range : <=37. The reference range was not used to interpr et this result as lukas l/abnormal. [facility] HospitalHwhzvcvQQCGRJKYOQOC6895-54-76 18:46:00 Test Item Value Reference Range Interpretation Comments Total Protein (test code = Total 6.9 6.4-8.4 Protein) [facility]OxpyqzpTEREUZWLNX4674-78-76 18:46:00 Test Item Value Reference Range Interpretation Comments Eosinophils (test code = 4.2 See_Comment [A utomated message] The Eosinophils) system which ge nerated this result tra nsmitted reference range : <=4.0. The reference r mitra was not used to int erpret this result as normal/abnormal . [facility] SouthWrwwxkhLSWMVAUCGE7014-05-83 18:46:00 Test Item Value Reference Range Interpretation Comments Segs (test code = Segs) 56.4 45.0-75.0 [facility] SouthUzcknhrPYGZRLQDAJ8601-67-50 18:46:00 Test Item Value Reference Range Interpretation Comments Monocytes (test code = Monocytes) 10.3 2.0-12.0 [facility] SouthYjkcecaYDLAWXFXNQ2290-46-11 18:46:00 Test Item Value Reference Range Interpretation Comments Lymphocytes (test code = Lymphocytes) 28.0 20.0-40.0 [facility] SouthQyiavzhOPIWLIIFCZ7945-71-44 18:46:00 Test Item Value Reference Range Interpretation Comments Monocytes # (test code 0.5 See_Comment [Aut omated message] The = Monocytes #) system which generated this result tra nsmitted reference range : <=0.8. The reference r mitra was not used to int erpret this result as normal/abnormal . [facility] SouthGhdoyrxQNMXNMRFIK6098-84-84 18:46:00 Test Item Value Reference Range Interpretation Comments Basophils (test code = 1.1 See_Comment [Aut omated message] The Basophils) system which ge nerated this result tra nsmitted reference range : <=1.0. The reference r mitra was not used to int erpret this result as normal/abnormal . [facility] SouthYlqinjpODJHGPSXQO7116-89-24 18:46:00 Test Item Value Reference Range Interpretation Comments Lymphocytes # (test code = Lymphocytes 1.5 1.0-5.5 #) [facility] SouthLelgbaaCXTGFZKOHM9065-11-76 18:46:00 Test Item Value Reference Range Interpretation Comments Segs-Bands # (test code = Segs-Bands #) 2.9 1.5-8.1 [facility] SouthWnzzaqyGUJONCJEDB0483-80-46 18:46:00 Test Item Value Reference Range Interpretation Comments Eosinophils # (test code 0.2 See_Comment [A utomated message] The = Eosinophils #) system whic h generated this result tra nsmitted reference range : <=0.5. The reference r mitra was not used to int erpret this result as normal/abnormal . [facility] SouthOlkjyhtDXRISTBKGU8932-55-89 18:46:00 Test Item Value Reference Range Interpretation Comments Basophils # (test code 0.1 See_Comment [Aut omated message] The = Basophils #) system which generated this result tra nsmitted reference range : <=0.2. The reference r mitra was not used to int erpret this result as normal/abnormal . [facility] SouthLgiyhdfYNYRJBXNFU3698-76-72 18:46:00 Test Item Value Reference Range Interpretation Comments PT (test code = PT) 11.2 s 12.0-14.7 [facility] SouthGkhsrngQXFXUOOEJS5109-50-04 18:46:00 Test Item Value Reference Range Interpretation Comments INR (test code = INR) 0.82 0.85-1.17 [facility] SouthCijcxjwFPVQDVSGAX6453-94-75 18:46:00 Test Item Value Reference Range Interpretation Comments PTT (test code = PTT) 28.6 s 22.9-35.8 [facility] SouthJkltzlbRREDHSNXJC8406-46-26 18:46:00 Test Item Value Reference Range Interpretation Comments MPV (test code = MPV) 8.1 7.4-10.4 [facility] SouthOwzldvsLHGYAUEGEK3519-32-75 18:46:00 Test Item Value Reference Range Interpretation Comments Platelet (test code = Platelet) 301 133-450 [facility] SouthHdxncscODNMQLDUZO4787-05-53 18:46:00 Test Item Value Reference Range Interpretation Comments RDW (test code = RDW) 14.5 11.5-14.5 [facility] SouthYkqrgfjQUJRXZIQKS0738-22-29 18:46:00 Test Item Value Reference Range Interpretation Comments RBC (test code = RBC) 4.84 4.70-6.10 [facility] AreaAmscqkmQRBKFYWEZP3056-30-23 18:46:00 Test Item Value Reference Range Interpretation Comments Hgb (test code = Hgb) 14.4 14.0-18.0 [facility]WcrygsuYDPWEFVBPF6911-77-97 18:46:00 Test Item Value Reference Range Interpretation Comments WBC (test code = WBC) 5.2 3.7-10.4 [facility] HospitalKobqijwOKLJUXEOAR6711-40-91 18:46:00 Test Item Value Reference Range Interpretation Comments MCH (test code = MCH) 29.8 pg 27.0-31.0 [facility]HvmrxlpJVMSLZIGWI6630-82-24 18:46:00 Test Item Value Reference Range Interpretation Comments MCV (test code = MCV) 92.0 80.0-94.0 [facility]CwhwianWZKLEPEGRC5548-92-94 18:46:00 Test Item Value Reference Range Interpretation Comments Hct (test code = Hct) 44.5 42.0-54.0 [facility] HospitalAifjaqnYNTEYHAEUN1306-12-20 18:46:00 Test Item Value Reference Range Interpretation Comments MCHC (test code = MCHC) 32.4 32.0-36.0 [facility] AreaMrwviixYPPMDHNIYW8551-69-70 18:46:00 Test Item Value Reference Range Interpretation Comments [employer] [place]-Hep C Ab (test Negative *NA*(07/22/14 code = [employer] [place]-Hep C 1:46 PM) Ab) [facility] AND [id number] 18:46:00 Test Item Value Reference Range Interpretation Comments UA Urobilinogen (test code = UA <=1.0 mg/dL 0.1-1.0 Urobilinogen) [facility] AND [id number] 18:46:00 Test Item Value Reference Range Interpretation Comments UA Sq Epi (test code = UA Sq Epi) None Seen [facility] AND [id number] 18:46:00 Test Item Value Reference Range Interpretation Comments UA Leuk Est (test Negative (07/22/14 1:46 code = UA Leuk Est) PM) [facility] AND [id number] 18:46:00 Test Item Value Reference Range Interpretation Comments UA Nitrite (test code Negative (07/22/14 1:46 = UA Nitrite) PM) [facility] AND [id number] 18:46:00 Test Item Value Reference Range Interpretation Comments UA Blood (test code = Negative (07/22/14 1:46 UA Blood) PM) [facility] AND [id number] 18:46:00 Test Item Value Reference Range Interpretation Comments UA Ketones (test code = UA Negative mg/dL Ketones) [facility] AND [id number] 18:46:00 Test Item Value Reference Range Interpretation Comments UA Bili (test code = Negative *NA*(07/22/14 UA Bili) 1:46 PM) [facility] AND [id number] 18:46:00 Test Item Value Reference Range Interpretation Comments UA Bacteria (test code = UA Occasional /HPF Bacteria) [facility] AND [id number] 18:46:00 Test Item Value Reference Range Interpretation Comments UA RBC (test code = no gt See_Comment [Automa elizabeth message] The UA RBC) system which ge nerated this result transmit elizabeth reference range : <=2. The reference range was not used to interpr et this result as lukas l/abnormal. [facility] AND [id number] 18:46:00 Test Item Value Reference Range Interpretation Comments UA WBC (test code = 1 See_Comment [Automa elizabeth message] The UA WBC) system which ge nerated this result transmit elizabeth reference range : <=5. The reference range was not used to interpr et this result as lukas l/abnormal. [facility] AND VGKJJ5101-43-28 18:46:00 Test Item Value Reference Range Interpretation Comments UA Glucose (test code = UA Glucose) 30 mg/dL [facility] AND [id number] 18:46:00 Test Item Value Reference Range Interpretation Comments UA Protein (test code = UA Negative mg/dL Protein) [facility] AND [id number] 18:46:00 Test Item Value Reference Range Interpretation Comments UA pH (test code = UA pH) 6.5 5.0-8.0 [facility] AND [id number] 18:46:00 Test Item Value Reference Range Interpretation Comments UA Turbidity (test code = Clear (07/22/14 1:46 UA Turbidity) PM) [facility] [id number] 18:46:00 Test Item Value Reference Range Interpretation Comments UA Spec Grav (test code = UA Spec Grav) 1.010 [facility] [id number] 18:46:00 Test Item Value Reference Range Interpretation Comments UA Color (test code = Light Yellow UA Color) *NA*(07/22/14 1:46 PM) [facility]annCHEM [id number] 18:46:00 Test Item Value Reference Range Interpretation Comments Magnesium Lvl (test code = Magnesium 1.8 1.8-2.4 Lvl) [facility]xl[facility]qtmERSYSKMNPRLR6391-96-63 18:46:00 Test Item Value Reference Range Interpretation Comments AGAP (test code = AGAP) 13.2 10.0-20.0 [facility]OimzgaiNMCACUGEEVRB8187-91-36 18:46:00 Test Item Value Reference Range Interpretation Comments B/C Ratio (test code = B/C Ratio) 18 6-25 [facility] HospitalMcdihlbWPSXWZJTFUQB1098-39-40 18:46:00 Test Item Value Reference Range Interpretation Comments A/G Ratio (test code = A/G Ratio) 1.1 0.7-1.6 [facility] HospitalSzmbaljFCGBVAXHDYXH9093-37-21 18:46:00 Test Item Value Reference Range Interpretation Comments Globulin (test code = Globulin) 3.3 2.0-4.0 [facility] HospitalLcdybrtGNVUIGANNEFX8949-73-12 18:46:00 Test Item Value Reference Range Interpretation Comments eGFR (test code = eGFR) 99 [facility] HospitalLwabdhvMRWSYPLYQXBA7406-73-25 18:46:00 Test Item Value Reference Range Interpretation Comments Calcium Lvl (test code = Calcium Lvl) 9.0 8.5-10.5 [facility]TwuetoeVULLWTRGKGCN6162-92-47 18:46:00 Test Item Value Reference Range Interpretation Comments Chloride Lvl (test code = Chloride Lvl) 106 95-109 [facility] HospitalCvhdphiWJLONVNRPISB9996-26-18 18:46:00 Test Item Value Reference Range Interpretation Comments Creatinine Lvl (test code = Creatinine 0.9 0.5-1.4 Lvl) [facility] HospitalMngcpcrVFIASGPIYUBY1468-84-49 18:46:00 Test Item Value Reference Range Interpretation Comments Potassium Lvl (test code = Potassium 4.2 3.5-5.1 Lvl) [facility] HospitalXwnigjnFTFIKREHCZIU6036-67-67 18:46:00 Test Item Value Reference Range Interpretation Comments Sodium Lvl (test code = Sodium Lvl) 139 135-145 [facility] HospitalOoozadePZYKKOJONLGV6080-64-50 18:46:00 Test Item Value Reference Range Interpretation Comments CO2 (test code = CO2) 24 24-32 [facility] HospitalIpcgphgUOCOGAZFUFGG7852-44-51 18:46:00 Test Item Value Reference Range Interpretation Comments BUN (test code = BUN) 16 7-22 [facility] HospitalBufoomlXJQACEFSJOKY4966-08-48 18:46:00 Test Item Value Reference Range Interpretation Comments Glucose Lvl (test code = Glucose Lvl) 141 70-99 [facility] HospitalUyjmipiNBQIXEZAQLMP7573-89-42 18:46:00 Test Item Value Reference Range Interpretation Comments Albumin Lvl (test code = Albumin Lvl) 3.6 3.5-5.0 [facility] HospitalVjqatfvTMSQSYIBXXZJ8418-05-75 18:46:00 Test Item Value Reference Range Interpretation Comments Alk Phos (test code = Alk Phos) 65 39-136 [facility] HospitalJdtnhnjGMDNGTOQMURC6577-13-93 18:46:00 Test Item Value Reference Range Interpretation Comments Bili Total (test code = Bili Total) 0.3 0.2-1.3 [facility] HospitalTmnlqhvRISQHCZARWCX4402-84-26 18:46:00 Test Item Value Reference Range Interpretation Comments ALT (test code = ALT) 100 See_Comment [Auto mated message] The system which ge nerated this result transmit elizabeth reference range : <=65. The reference range was not used to interpr et this result as lukas l/abnormal. [facility] HospitalMdwqdptNXHFJJUDDXVW1980-13-90 18:46:00 Test Item Value Reference Range Interpretation Comments AST (test code = AST) 53 See_Comment [Auto mated message] The system which ge nerated this result transmit elizabeth reference range : <=37. The reference range was not used to interpr et this result as lukas l/abnormal. [facility] HospitalUkjztwcJIFGFUHMIUST8779-83-00 18:46:00 Test Item Value Reference Range Interpretation Comments Total Protein (test code = Total 6.9 6.4-8.4 Protein) [facility]PvgcjhdINXLRKLWLJ8699-18-17 18:46:00 Test Item Value Reference Range Interpretation Comments Eosinophils (test code = 4.2 See_Comment [A utomated message] The Eosinophils) system which ge nerated this result tra nsmitted reference range : <=4.0. The reference r mitra was not used to int erpret this result as normal/abnormal . [facility] SouthZpadslnFBNECFXFRE8272-65-33 18:46:00 Test Item Value Reference Range Interpretation Comments Segs (test code = Segs) 56.4 45.0-75.0 [facility] SouthCrasmoqOIPJJLWXHP2847-91-50 18:46:00 Test Item Value Reference Range Interpretation Comments Monocytes (test code = Monocytes) 10.3 2.0-12.0 [facility] SouthGcaucwyOFKEGWLJIH7626-32-92 18:46:00 Test Item Value Reference Range Interpretation Comments Lymphocytes (test code = Lymphocytes) 28.0 20.0-40.0 [facility] SouthLlnvkfrHVSEONMPQH8703-14-41 18:46:00 Test Item Value Reference Range Interpretation Comments Monocytes # (test code 0.5 See_Comment [Aut omated message] The = Monocytes #) system which generated this result tra nsmitted reference range : <=0.8. The reference r mitra was not used to int erpret this result as normal/abnormal . [facility] SouthRkjoqueSSVKWJCXRH1563-59-31 18:46:00 Test Item Value Reference Range Interpretation Comments Basophils (test code = 1.1 See_Comment [Aut omated message] The Basophils) system which ge nerated this result tra nsmitted reference range : <=1.0. The reference r mitra was not used to int erpret this result as normal/abnormal . [facility] SouthUpkhkyqZYMQLOKBMS7025-53-13 18:46:00 Test Item Value Reference Range Interpretation Comments Lymphocytes # (test code = Lymphocytes 1.5 1.0-5.5 #) [facility] SouthRjpyncbAJBWOVKOFQ7451-79-55 18:46:00 Test Item Value Reference Range Interpretation Comments Segs-Bands # (test code = Segs-Bands #) 2.9 1.5-8.1 [facility] SouthObqxhilAOUFIVPBVW8216-03-34 18:46:00 Test Item Value Reference Range Interpretation Comments Eosinophils # (test code 0.2 See_Comment [A utomated message] The = Eosinophils #) system ic h generated this result tra nsmitted reference range : <=0.5. The reference r mitra was not used to int erpret this result as normal/abnormal . [facility] SouthKwslkvbPDNFUODFGQ7736-36-46 18:46:00 Test Item Value Reference Range Interpretation Comments Basophils # (test code 0.1 See_Comment [Aut omated message] The = Basophils #) system which generated this result tra nsmitted reference range : <=0.2. The reference r mitra was not used to int erpret this result as normal/abnormal . [facility] SouthDppasqlYHJZKBAHQQ2448-67-11 18:46:00 Test Item Value Reference Range Interpretation Comments PT (test code = PT) 11.2 s 12.0-14.7 [facility] SouthDyscxwlPOZKBPOWEM1483-94-64 18:46:00 Test Item Value Reference Range Interpretation Comments INR (test code = INR) 0.82 0.85-1.17 [facility] SouthIypkulpDTWKTSHMBE2461-99-57 18:46:00 Test Item Value Reference Range Interpretation Comments PTT (test code = PTT) 28.6 s 22.9-35.8 [facility] SouthEkrjejgUASZNBTUKS4863-38-93 18:46:00 Test Item Value Reference Range Interpretation Comments MPV (test code = MPV) 8.1 7.4-10.4 [facility] SouthHordegdZDGPUSYNEQ3935-71-45 18:46:00 Test Item Value Reference Range Interpretation Comments Platelet (test code = Platelet) 301 133-450 [facility] SouthFmebjygEXJCIKYJKH7522-36-86 18:46:00 Test Item Value Reference Range Interpretation Comments RDW (test code = RDW) 14.5 11.5-14.5 [facility] SouthVfswrkyBCGLIIQLWA7204-47-15 18:46:00 Test Item Value Reference Range Interpretation Comments RBC (test code = RBC) 4.84 4.70-6.10 [facility] SouthFelkylpOAKUOBRDQC2426-94-92 18:46:00 Test Item Value Reference Range Interpretation Comments Hgb (test code = Hgb) 14.4 14.0-18.0 [facility] SouthFwunnohYFKKHYGLKF1478-82-23 18:46:00 Test Item Value Reference Range Interpretation Comments WBC (test code = WBC) 5.2 3.7-10.4 [facility] SouthDbnroyvWJJUSNGNCM6377-27-23 18:46:00 Test Item Value Reference Range Interpretation Comments MCH (test code = MCH) 29.8 pg 27.0-31.0 [facility] AreaKhhsufhXZOARKJWNW6470-20-68 18:46:00 Test Item Value Reference Range Interpretation Comments MCV (test code = MCV) 92.0 80.0-94.0 [facility] QwiifhsHLPXEJSPIN3239-12-61 18:46:00 Test Item Value Reference Range Interpretation Comments Hct (test code = Hct) 44.5 42.0-54.0 [facility] AreaHkjmdmcYVXKNXMGFG3342-98-03 18:46:00 Test Item Value Reference Range Interpretation Comments MCHC (test code = MCHC) 32.4 32.0-36.0 [facility] AreaIvdrgawXYJIRODOIC6497-15-25 18:46:00 Test Item Value Reference Range Interpretation Comments [employer] [place]-Hep C Ab (test Negative *NA*(07/22/14 code = [employer] [place]-Hep C 1:46 PM) Ab) [facility] AND [id number] 18:46:00 Test Item Value Reference Range Interpretation Comments UA Urobilinogen (test code = UA <=1.0 mg/dL 0.1-1.0 Urobilinogen) [facility] AND [id number] 18:46:00 Test Item Value Reference Range Interpretation Comments UA Sq Epi (test code = UA Sq Epi) None Seen [facility] AND [id number] 18:46:00 Test Item Value Reference Range Interpretation Comments UA Leuk Est (test Negative (07/22/14 1:46 code = UA Leuk Est) PM) [facility] AND [id number] 18:46:00 Test Item Value Reference Range Interpretation Comments UA Nitrite (test code Negative (07/22/14 1:46 = UA Nitrite) PM) [facility] AND [id number] 18:46:00 Test Item Value Reference Range Interpretation Comments UA Blood (test code = Negative (07/22/14 1:46 UA Blood) PM) [facility] AND [id number] 18:46:00 Test Item Value Reference Range Interpretation Comments UA Ketones (test code = UA Negative mg/dL Ketones) [facility] AND [id number] 18:46:00 Test Item Value Reference Range Interpretation Comments UA Bili (test code = Negative *NA*(07/22/14 UA Bili) 1:46 PM) [facility] [id number] 18:46:00 Test Item Value Reference Range Interpretation Comments UA Bacteria (test code = UA Occasional /HPF Bacteria) [facility] [id number] 18:46:00 Test Item Value Reference Range Interpretation Comments UA RBC (test code = no gt See_Comment [Automa elizabeth message] The UA RBC) system which ge nerated this result transmit elizabeth reference range : <=2. The reference range was not used to interpr et this result as lukas l/abnormal. [facility] [id number] 18:46:00 Test Item Value Reference Range Interpretation Comments UA WBC (test code = 1 See_Comment [Automa elizabeth message] The UA WBC) system which ge nerated this result transmit elizabeth reference range : <=5. The reference range was not used to interpr et this result as lukas l/abnormal. [facility] [id number] 18:46:00 Test Item Value Reference Range Interpretation Comments UA Glucose (test code = UA Glucose) 30 mg/dL [facility] [id number] 18:46:00 Test Item Value Reference Range Interpretation Comments UA Protein (test code = UA Negative mg/dL Protein) [facility] [id number] 18:46:00 Test Item Value Reference Range Interpretation Comments UA pH (test code = UA pH) 6.5 5.0-8.0 [facility] [id number] 18:46:00 Test Item Value Reference Range Interpretation Comments UA Turbidity (test code = Clear (07/22/14 1:46 UA Turbidity) PM) [facility] [id number] 18:46:00 Test Item Value Reference Range Interpretation Comments UA Spec Grav (test code = UA Spec Grav) 1.010 [facility] [id number] 18:46:00 Test Item Value Reference Range Interpretation Comments UA Color (test code = Light Yellow UA Color) *NA*(07/22/14 1:46 PM) [facility] [id number] 18:46:00 Test Item Value Reference Range Interpretation Comments Magnesium Lvl (test code = Magnesium 1.8 1.8-2.4 Lvl) [facility] SpqumtdFXMZDHKXLUQY8965-71-15 18:46:00 Test Item Value Reference Range Interpretation Comments AGAP (test code = AGAP) 13.2 10.0-20.0 [facility]NcewpggDWFCMIOAEXXY1962 18:46:00 Test Item Value Reference Range Interpretation Comments B/C Ratio (test code = B/C Ratio) 18 6-25 [facility] HospitalLwfbfbcKNSBAAEVZRUQ9020-11-87 18:46:00 Test Item Value Reference Range Interpretation Comments A/G Ratio (test code = A/G Ratio) 1.1 0.7-1.6 [facility] HospitalRyutigrKDCWFPIHPZNP4598-06-37 18:46:00 Test Item Value Reference Range Interpretation Comments Globulin (test code = Globulin) 3.3 2.0-4.0 [facility] HospitalDdfvbrrGDMBCZQDAGRM2669-19-74 18:46:00 Test Item Value Reference Range Interpretation Comments eGFR (test code = eGFR) 99 [facility] HospitalPkezqguRZZQYLHXVNSM8750-96-26 18:46:00 Test Item Value Reference Range Interpretation Comments Calcium Lvl (test code = Calcium Lvl) 9.0 8.5-10.5 [facility] HospitalBtvtvcdPDIOIFMGEAHN5165-32-06 18:46:00 Test Item Value Reference Range Interpretation Comments Chloride Lvl (test code = Chloride Lvl) 106 95-109 [facility] HospitalRgeaullGOLUDRQKOPQT6992-15-15 18:46:00 Test Item Value Reference Range Interpretation Comments Creatinine Lvl (test code = Creatinine 0.9 0.5-1.4 Lvl) [facility] HospitalKtrdbhhJGOJEEXDHNZL3873-40-62 18:46:00 Test Item Value Reference Range Interpretation Comments Potassium Lvl (test code = Potassium 4.2 3.5-5.1 Lvl) [facility] HospitalZcahsiiSCEGWWOMTCZJ5690-13-60 18:46:00 Test Item Value Reference Range Interpretation Comments Sodium Lvl (test code = Sodium Lvl) 139 135-145 [facility] HospitalYdcvwwjTMKDMWUOEWYG7983-99-23 18:46:00 Test Item Value Reference Range Interpretation Comments CO2 (test code = CO2) 24 24-32 [facility] HospitalGykciquTGHJKEKQDLEG1444-06-70 18:46:00 Test Item Value Reference Range Interpretation Comments BUN (test code = BUN) 16 7-22 [facility] HospitalElujmzbITXMOONNBLGC6413-31-25 18:46:00 Test Item Value Reference Range Interpretation Comments Glucose Lvl (test code = Glucose Lvl) 141 70-99 [facility] HospitalPciqlmvXKMDVLPVSERB9919-54-45 18:46:00 Test Item Value Reference Range Interpretation Comments Albumin Lvl (test code = Albumin Lvl) 3.6 3.5-5.0 [facility] HospitalTnkjhycZZISDVWPMQDN8694-81-54 18:46:00 Test Item Value Reference Range Interpretation Comments Alk Phos (test code = Alk Phos) 65 39-136 [facility] HospitalGcgklzuOKSQPEANHDAV5212-92-97 18:46:00 Test Item Value Reference Range Interpretation Comments Bili Total (test code = Bili Total) 0.3 0.2-1.3 [facility] HospitalFmpzqjyYKAUUEPTOCVL5906-56-04 18:46:00 Test Item Value Reference Range Interpretation Comments ALT (test code = ALT) 100 See_Comment [Auto mated message] The system which ge nerated this result transmit elizabeth reference range : <=65. The reference range was not used to interpr et this result as lukas l/abnormal. [facility] HospitalXphgqrdRMYYFKWLDRWG9843-82-39 18:46:00 Test Item Value Reference Range Interpretation Comments AST (test code = AST) 53 See_Comment [Auto mated message] The system which ge nerated this result transmit elizabeth reference range : <=37. The reference range was not used to interpr et this result as lukas l/abnormal. [facility] HospitalGrmefxcYNZPVEJCHEAU7394-32-63 18:46:00 Test Item Value Reference Range Interpretation Comments Total Protein (test code = Total 6.9 6.4-8.4 Protein) [facility]MwrqdntVDMGPPFJIU8803-55-86 18:46:00 Test Item Value Reference Range Interpretation Comments Eosinophils (test code = 4.2 See_Comment [A utomated message] The Eosinophils) system which ge nerated this result tra nsmitted reference range : <=4.0. The reference r mitra was not used to int erpret this result as normal/abnormal . [facility] SouthHtzcfpbHHBPBOEJUC0662-05-32 18:46:00 Test Item Value Reference Range Interpretation Comments Segs (test code = Segs) 56.4 45.0-75.0 [facility] SouthYxccgxhAPKYLMONOL3008-18-49 18:46:00 Test Item Value Reference Range Interpretation Comments Monocytes (test code = Monocytes) 10.3 2.0-12.0 [facility] SouthUxlwjqrKJNOGTCQAP5508-98-61 18:46:00 Test Item Value Reference Range Interpretation Comments Lymphocytes (test code = Lymphocytes) 28.0 20.0-40.0 [facility] SouthIppycunVSYZUIXQMZ1742-49-68 18:46:00 Test Item Value Reference Range Interpretation Comments Monocytes # (test code 0.5 See_Comment [Aut omated message] The = Monocytes #) system which generated this result tra nsmitted reference range : <=0.8. The reference r mitra was not used to int erpret this result as normal/abnormal . [facility] SouthDxfebhvQJKLYGROKA0212-96-27 18:46:00 Test Item Value Reference Range Interpretation Comments Basophils (test code = 1.1 See_Comment [Aut omated message] The Basophils) system which ge nerated this result tra nsmitted reference range : <=1.0. The reference r mitra was not used to int erpret this result as normal/abnormal . [facility] SouthCghjkjqKXNZYFBJPW5252-68-94 18:46:00 Test Item Value Reference Range Interpretation Comments Lymphocytes # (test code = Lymphocytes 1.5 1.0-5.5 #) [facility] SouthZwdlpgrIQJKDVRRNZ6575-58-57 18:46:00 Test Item Value Reference Range Interpretation Comments Segs-Bands # (test code = Segs-Bands #) 2.9 1.5-8.1 [facility] SouthVdrajdrLWEWOZZIPZ5321-48-89 18:46:00 Test Item Value Reference Range Interpretation Comments Eosinophils # (test code 0.2 See_Comment [A utomated message] The = Eosinophils #) system wh h generated this result tra nsmitted reference range : <=0.5. The reference r mitra was not used to int erpret this result as normal/abnormal . [facility] SouthFzrdczcXPVANXBNSN6387-75-28 18:46:00 Test Item Value Reference Range Interpretation Comments Basophils # (test code 0.1 See_Comment [Aut omated message] The = Basophils #) system which generated this result tra nsmitted reference range : <=0.2. The reference r mitra was not used to int erpret this result as normal/abnormal . [facility] SouthEmbsudgNNGAPZNQIF3521-69-29 18:46:00 Test Item Value Reference Range Interpretation Comments PT (test code = PT) 11.2 s 12.0-14.7 [facility] SouthChnyvmjKUIJFBVKGA9991-14-98 18:46:00 Test Item Value Reference Range Interpretation Comments INR (test code = INR) 0.82 0.85-1.17 [facility] SouthByqvfhkHUVLRDFNAS1127-06-73 18:46:00 Test Item Value Reference Range Interpretation Comments PTT (test code = PTT) 28.6 s 22.9-35.8 [facility] SouthXnrcjwoQSELPPJFAW2835-75-29 18:46:00 Test Item Value Reference Range Interpretation Comments MPV (test code = MPV) 8.1 7.4-10.4 [facility]2015-06-09 18:46:00 Test Item Value Reference Range Interpretation Comments Magnesium Lvl (test code = Magnesium 1.8 1.8-2.4 Lvl) [facility] SouthQsbkcksJRTQXXBYHM6689-20-13 18:46:00 Test Item Value Reference Range Interpretation Comments Platelet (test code = Platelet) 301 133-450 [facility] HospitalKkmxqsrFRFGYVEXWKTT6884-05-27 18:46:00 Test Item Value Reference Range Interpretation Comments AGAP (test code = AGAP) 13.2 10.0-20.0 [facility] SouthWwefpyqIEFSZDOWHK1161-59-36 18:46:00 Test Item Value Reference Range Interpretation Comments RDW (test code = RDW) 14.5 11.5-14.5 [facility] HospitalIcvbtcqOSMQDYYUWQKH4487-75-29 18:46:00 Test Item Value Reference Range Interpretation Comments B/C Ratio (test code = B/C Ratio) 18 6-25 [facility] SouthAyenmjwMAWRHMBEXS4587-28-77 18:46:00 Test Item Value Reference Range Interpretation Comments RBC (test code = RBC) 4.84 4.70-6.10 [facility] HospitalIhxiaibHJIDHTESXDDL3987-44-61 18:46:00 Test Item Value Reference Range Interpretation Comments A/G Ratio (test code = A/G Ratio) 1.1 0.7-1.6 [facility] SouthBdclfpgUJBFZAZQIE5206-47-39 18:46:00 Test Item Value Reference Range Interpretation Comments Hgb (test code = Hgb) 14.4 14.0-18.0 [facility] HospitalXicezvwAGXDEUADETBT1778-77-54 18:46:00 Test Item Value Reference Range Interpretation Comments Globulin (test code = Globulin) 3.3 2.0-4.0 [facility] SouthSbjopfbBWXCJQXPZY2837-98-76 18:46:00 Test Item Value Reference Range Interpretation Comments WBC (test code = WBC) 5.2 3.7-10.4 [facility] HospitalHovvruaJACBAQNOIBOJ7625-18-63 18:46:00 Test Item Value Reference Range Interpretation Comments eGFR (test code = eGFR) 99 [facility] SouthVqdlfupAYLKZVCWID4814-68-93 18:46:00 Test Item Value Reference Range Interpretation Comments MCH (test code = MCH) 29.8 pg 27.0-31.0 [facility] HospitalWmlnspuTLSYLYWPYIWN8525-19-57 18:46:00 Test Item Value Reference Range Interpretation Comments Calcium Lvl (test code = Calcium Lvl) 9.0 8.5-10.5 [facility] SouthRlrtrlaUXYNSSKLWH8386-98-62 18:46:00 Test Item Value Reference Range Interpretation Comments MCV (test code = MCV) 92.0 80.0-94.0 [facility] HospitalXpjpaslBPETWDKFIQCU2514-61-19 18:46:00 Test Item Value Reference Range Interpretation Comments Chloride Lvl (test code = Chloride Lvl) 106 95-109 [facility] SouthYqfwtugRKRQUNTUPD8536-80-00 18:46:00 Test Item Value Reference Range Interpretation Comments Hct (test code = Hct) 44.5 42.0-54.0 [facility] HospitalOvkjbpjHVBRCBDGJJCB0565-23-06 18:46:00 Test Item Value Reference Range Interpretation Comments Creatinine Lvl (test code = Creatinine 0.9 0.5-1.4 Lvl) [facility] SouthQdoynjdQPGHXGQODJ4031-31-74 18:46:00 Test Item Value Reference Range Interpretation Comments MCHC (test code = MCHC) 32.4 32.0-36.0 [facility] HospitalKcfrdceVFDDBRZCNYUS7328-39-25 18:46:00 Test Item Value Reference Range Interpretation Comments Potassium Lvl (test code = Potassium 4.2 3.5-5.1 Lvl) [facility]GGCTKSHRKU6473[facility] 18:46:00 Test Item Value Reference Range Interpretation Comments [employer]-Hep C Ab (test Negative *NA*(07/22/14 code = [employer]-Hep C 1:46 PM) Ab) [facility] HospitalCxxrxqfHTQNEPXDMMXT2692-58-93 18:46:00 Test Item Value Reference Range Interpretation Comments Sodium Lvl (test code = Sodium Lvl) 139 135-145 [facility] AND MOOLQ8544-04-97 18:46:00 Test Item Value Reference Range Interpretation Comments UA Urobilinogen (test code = UA <=1.0 mg/dL 0.1-1.0 Urobilinogen) [facility] HospitalUxswndrKYHSORKVRPKM9678-05-69 18:46:00 Test Item Value Reference Range Interpretation Comments CO2 (test code = CO2) 24 24-32 [facility] AND [id number] 18:46:00 Test Item Value Reference Range Interpretation Comments UA Sq Epi (test code = UA Sq Epi) None Seen [facility] HospitalFtaedkzVUFJNZIZHDJR2235-33-21 18:46:00 Test Item Value Reference Range Interpretation Comments BUN (test code = BUN) 16 7-22 [facility] AND HJZLM8508-28-71 18:46:00 Test Item Value Reference Range Interpretation Comments UA Leuk Est (test Negative (07/22/14 1:46 code = UA Leuk Est) PM) [facility] HospitalTzkrjmvPWHWYLAZRONP5677-35-32 18:46:00 Test Item Value Reference Range Interpretation Comments Glucose Lvl (test code = Glucose Lvl) 141 70-99 [facility] AND [id number] 18:46:00 Test Item Value Reference Range Interpretation Comments UA Nitrite (test code Negative (07/22/14 1:46 = UA Nitrite) PM) [facility] HospitalYbjtsayIVVIJWTPUCFU7363-72-73 18:46:00 Test Item Value Reference Range Interpretation Comments Albumin Lvl (test code = Albumin Lvl) 3.6 3.5-5.0 [facility]2015-06-09 18:46:00 Test Item Value Reference Range Interpretation Comments UA Blood (test code = Negative (07/22/14 1:46 UA Blood) PM) [facility] HospitalPtmmjeqOLLWQAUTFKVX5300-76-87 18:46:00 Test Item Value Reference Range Interpretation Comments Alk Phos (test code = Alk Phos) 65 39-136 [facility] AND [id number] 18:46:00 Test Item Value Reference Range Interpretation Comments UA Ketones (test code = UA Negative mg/dL Ketones) [facility] HospitalXmnzkdxUZZFMATMYUXB7293-54-27 18:46:00 Test Item Value Reference Range Interpretation Comments Bili Total (test code = Bili Total) 0.3 0.2-1.3 [facility] AND MVSVM8569-74-03 18:46:00 Test Item Value Reference Range Interpretation Comments UA Bili (test code = Negative *NA*(07/22/14 UA Bili) 1:46 PM) [facility] AND [id number] 18:46:00 Test Item Value Reference Range Interpretation Comments UA Bacteria (test code = UA Occasional /HPF Bacteria) [facility] HospitalGxanbyiAXISUFRHGSUD2258-45-03 18:46:00 Test Item Value Reference Range Interpretation Comments ALT (test code = ALT) 100 See_Comment [Auto mated message] The system which ge nerated this result transmit elizabeth reference range : <=65. The reference range was not used to interpr et this result as lukas l/abnormal. [facility] AND [id number] 18:46:00 Test Item Value Reference Range Interpretation Comments UA RBC (test code = no gt See_Comment [Automa elizabeth message] The UA RBC) system which ge nerated this result transmit elizabeth reference range : <=2. The reference range was not used to interpr et this result as lukas l/abnormal. [facility][id number] 18:46:00 Test Item Value Reference Range Interpretation Comments AST (test code = AST) 53 See_Comment [Auto mated message] The system which ge nerated this result transmit elizabeth reference range : <=37. The reference range was not used to interpr et this result as lukas l/abnormal. [facility] AND [id number] 18:46:00 Test Item Value Reference Range Interpretation Comments UA WBC (test code = 1 See_Comment [Automa elizabeth message] The UA WBC) system which ge nerated this result transmit elizabeth reference range : <=5. The reference range was not used to interpr et this result as lukas l/abnormal. [facility] HospitalKxsyunvKHFHLURVONHV0092-54-05 18:46:00 Test Item Value Reference Range Interpretation Comments Total Protein (test code = Total 6.9 6.4-8.4 Protein) [facility] AND [id number] 18:46:00 Test Item Value Reference Range Interpretation Comments UA Glucose (test code = UA Glucose) 30 mg/dL [facility]IyahdhpEMLWSUINPA3706-20-04 18:46:00 Test Item Value Reference Range Interpretation Comments Eosinophils (test code = 4.2 See_Comment [A utomated message] The Eosinophils) system which ge nerated this result tra nsmitted reference range : <=4.0. The reference r mitra was not used to int erpret this result as normal/abnormal . [facility] AND [id number] 18:46:00 Test Item Value Reference Range Interpretation Comments UA Protein (test code = UA Negative mg/dL Protein) [facility] SouthMykdetjMYWWDEBWLI4512-20-72 18:46:00 Test Item Value Reference Range Interpretation Comments Segs (test code = Segs) 56.4 45.0-75.0 [facility] AND [id number] 18:46:00 Test Item Value Reference Range Interpretation Comments UA pH (test code = UA pH) 6.5 5.0-8.0 [facility] SouthFmenwrkHNRKVCIAAO0266-31-33 18:46:00 Test Item Value Reference Range Interpretation Comments Monocytes (test code = Monocytes) 10.3 2.0-12.0 [facility] AND [id number] 18:46:00 Test Item Value Reference Range Interpretation Comments UA Turbidity (test code = Clear (07/22/14 1:46 UA Turbidity) PM) [facility] SouthTniopgxPXUFQCJUQL2107-87-35 18:46:00 Test Item Value Reference Range Interpretation Comments Lymphocytes (test code = Lymphocytes) 28.0 20.0-40.0 [facility] AND [id number] 18:46:00 Test Item Value Reference Range Interpretation Comments UA Spec Grav (test code = UA Spec Grav) 1.010 [facility] SouthQpgmpezZFFVCXWFKP2125-81-71 18:46:00 Test Item Value Reference Range Interpretation Comments Monocytes # (test code 0.5 See_Comment [Aut omated message] The = Monocytes #) system which generated this result tra nsmitted reference range : <=0.8. The reference r mitra was not used to int erpret this result as normal/abnormal . [facility] AND [id number] 18:46:00 Test Item Value Reference Range Interpretation Comments UA Color (test code = Light Yellow UA Color) *NA*(07/22/14 1:46 PM) [facility] SouthYasduepYKIJVVJDFD5130-06-72 18:46:00 Test Item Value Reference Range Interpretation Comments Basophils (test code = 1.1 See_Comment [Aut omated message] The Basophils) system which ge nerated this result tra nsmitted reference range : <=1.0. The reference r mitra was not used to int erpret this result as normal/abnormal . [facility]2015-06-09 18:46:00 Test Item Value Reference Range Interpretation Comments Magnesium Lvl (test code = Magnesium 1.8 1.8-2.4 Lvl) [facility] SouthGmtjctfELYQEKKBEG1227-70-40 18:46:00 Test Item Value Reference Range Interpretation Comments Lymphocytes # (test code = Lymphocytes 1.5 1.0-5.5 #) [facility] SouthOnacwxlNVCOQLUPEA9509-82-46 18:46:00 Test Item Value Reference Range Interpretation Comments Segs-Bands # (test code = Segs-Bands #) 2.9 1.5-8.1 [facility] HospitalVcdaleqVCRMLQWBJZQX7938-24-22 18:46:00 Test Item Value Reference Range Interpretation Comments AGAP (test code = AGAP) 13.2 10.0-20.0 [facility] SouthCoftawaNBAOLWQUEX1652-97-37 18:46:00 Test Item Value Reference Range Interpretation Comments Eosinophils # (test code 0.2 See_Comment [A utomated message] The = Eosinophils #) system whic h generated this result tra nsmitted reference range : <=0.5. The reference r mitra was not used to int erpret this result as normal/abnormal . [facility] HospitalQavuxakASMJDVNOJBPO6586-04-09 18:46:00 Test Item Value Reference Range Interpretation Comments B/C Ratio (test code = B/C Ratio) 18 6-25 [facility] SouthThuylcmKSDTJWWZTY7468-35-18 18:46:00 Test Item Value Reference Range Interpretation Comments Basophils # (test code 0.1 See_Comment [Aut omated message] The = Basophils #) system which generated this result tra nsmitted reference range : <=0.2. The reference r mitra was not used to int erpret this result as normal/abnormal . [facility] HospitalZxmidakWPZCYKEREUSE5849-05-84 18:46:00 Test Item Value Reference Range Interpretation Comments A/G Ratio (test code = A/G Ratio) 1.1 0.7-1.6 [facility] SouthOxfmelxFKOULCEXZP3046-23-05 18:46:00 Test Item Value Reference Range Interpretation Comments PT (test code = PT) 11.2 s 12.0-14.7 [facility] HospitalRfznyjxIJVCRMIDYISV0173-14-14 18:46:00 Test Item Value Reference Range Interpretation Comments Globulin (test code = Globulin) 3.3 2.0-4.0 [facility] SouthAuiuwqiQVCIHUEMPY8388-24-54 18:46:00 Test Item Value Reference Range Interpretation Comments INR (test code = INR) 0.82 0.85-1.17 [facility] HospitalWjieppmFMNOASZGRTRO2618-39-21 18:46:00 Test Item Value Reference Range Interpretation Comments eGFR (test code = eGFR) 99 [facility] SouthRbchnxnZEJSKBUGZF2006-33-06 18:46:00 Test Item Value Reference Range Interpretation Comments PTT (test code = PTT) 28.6 s 22.9-35.8 [facility] HospitalAzlmrhwNEQUJYMQYHTQ2122-62-30 18:46:00 Test Item Value Reference Range Interpretation Comments Calcium Lvl (test code = Calcium Lvl) 9.0 8.5-10.5 [facility] SouthIkkvgmpTHWQZQBJGW8724-46-89 18:46:00 Test Item Value Reference Range Interpretation Comments MPV (test code = MPV) 8.1 7.4-10.4 [facility] HospitalWbroxlkMUKWQBIZHQJH9799-80-22 18:46:00 Test Item Value Reference Range Interpretation Comments Chloride Lvl (test code = Chloride Lvl) 106 95-109 [facility] HospitalYatyvdtFKEJDVQRECRB9412-69-56 18:46:00 Test Item Value Reference Range Interpretation Comments Creatinine Lvl (test code = Creatinine 0.9 0.5-1.4 Lvl) [facility] SouthKxdvscnXZFAIORGTB6713-09-59 18:46:00 Test Item Value Reference Range Interpretation Comments Platelet (test code = Platelet) 301 133-450 [facility] HospitalIsutumqCKQBCWFLUMHP5844-16-35 18:46:00 Test Item Value Reference Range Interpretation Comments Potassium Lvl (test code = Potassium 4.2 3.5-5.1 Lvl) [facility] SouthExqryqvLGGHNORRVY0097-69-88 18:46:00 Test Item Value Reference Range Interpretation Comments RDW (test code = RDW) 14.5 11.5-14.5 [facility] HospitalOebvwgzTZPBMGNALIDY8792-11-33 18:46:00 Test Item Value Reference Range Interpretation Comments Sodium Lvl (test code = Sodium Lvl) 139 135-145 [facility] SouthZljqebyLFKSZQQWOR4058-50-72 18:46:00 Test Item Value Reference Range Interpretation Comments RBC (test code = RBC) 4.84 4.70-6.10 [facility] HospitalQvtipygLRBJCWFQJDXJ6756-14-48 18:46:00 Test Item Value Reference Range Interpretation Comments CO2 (test code = CO2) 24 24-32 [facility] SouthZugvfgqTOWFEWQHIW8916-86-59 18:46:00 Test Item Value Reference Range Interpretation Comments Hgb (test code = Hgb) 14.4 14.0-18.0 [facility] HospitalBowzxoiFPXIBPTNXRUY9840-91-59 18:46:00 Test Item Value Reference Range Interpretation Comments BUN (test code = BUN) 16 7-22 [facility] SouthEwididmDYOETUJPQF5902-61-65 18:46:00 Test Item Value Reference Range Interpretation Comments WBC (test code = WBC) 5.2 3.7-10.4 [facility] HospitalAhajmyzPTKOUBHUOZME2523-64-80 18:46:00 Test Item Value Reference Range Interpretation Comments Glucose Lvl (test code = Glucose Lvl) 141 70-99 [facility] SouthQufhdpmDUNLOYYBRN3166-08-98 18:46:00 Test Item Value Reference Range Interpretation Comments MCH (test code = MCH) 29.8 pg 27.0-31.0 [facility] HospitalCbvbdkfTJTKTLSTUCDO0461-45-04 18:46:00 Test Item Value Reference Range Interpretation Comments Albumin Lvl (test code = Albumin Lvl) 3.6 3.5-5.0 [facility] SouthZktxbcdZLZUVEWEEK9449-92-11 18:46:00 Test Item Value Reference Range Interpretation Comments MCV (test code = MCV) 92.0 80.0-94.0 [facility] HospitalZvynowxFPHSWMQVIZHJ7122-27-01 18:46:00 Test Item Value Reference Range Interpretation Comments Alk Phos (test code = Alk Phos) 65 39-136 [facility] SouthBhvyrwiMHHRYKJQPG2773-71-85 18:46:00 Test Item Value Reference Range Interpretation Comments Hct (test code = Hct) 44.5 42.0-54.0 [facility] HospitalTyiwuvdEVZBQEIAEUWE1890-72-84 18:46:00 Test Item Value Reference Range Interpretation Comments Bili Total (test code = Bili Total) 0.3 0.2-1.3 [facility] AreaOthcthdTNXSVESNEW2234-15-88 18:46:00 Test Item Value Reference Range Interpretation Comments MCHC (test code = MCHC) 32.4 32.0-36.0 [facility] AreaVzsgpczSDTJTYXAXI4416-27-15 18:46:00 Test Item Value Reference Range Interpretation Comments [place]-Hep C Ab (test Negative *NA*(07/22/14 code = [place]-Hep C 1:46 PM) Ab) [facility] HospitalTurhcdfJGVENZKZYVSQ6631-97-76 18:46:00 Test Item Value Reference Range Interpretation Comments ALT (test code = ALT) 100 See_Comment [Auto mated message] The system which ge nerated this result transmit elizabeth reference range : <=65. The reference range was not used to interpr et this result as lukas l/abnormal. [facility] HospitalSvlgdngYZGLCCBLKRRA1495-71-31 18:46:00 Test Item Value Reference Range Interpretation Comments AST (test code = AST) 53 See_Comment [Auto mated message] The system which ge nerated this result transmit elizabeth reference range : <=37. The reference range was not used to interpr et this result as lukas l/abnormal. [facility] AND [id number] 18:46:00 Test Item Value Reference Range Interpretation Comments UA Urobilinogen (test code = UA <=1.0 mg/dL 0.1-1.0 Urobilinogen) [facility] HospitalLnusbrbDLKLKQXKIVQP4810-84-62 18:46:00 Test Item Value Reference Range Interpretation Comments Total Protein (test code = Total 6.9 6.4-8.4 Protein) [facility] AND [id number] 18:46:00 Test Item Value Reference Range Interpretation Comments UA Sq Epi (test code = UA Sq Epi) None Seen [facility] SouthDdvihrfNNTILEEKBP3838-94-41 18:46:00 Test Item Value Reference Range Interpretation Comments Eosinophils (test code = 4.2 See_Comment [A utomated message] The Eosinophils) system which ge nerated this result tra nsmitted reference range : <=4.0. The reference r mitra was not used to int erpret this result as normal/abnormal . [facility] [id number] 18:46:00 Test Item Value Reference Range Interpretation Comments UA Leuk Est (test Negative (07/22/14 1:46 code = UA Leuk Est) PM) [facility] SouthDjnuqtcAZZICIGUWW8655-62-54 18:46:00 Test Item Value Reference Range Interpretation Comments Segs (test code = Segs) 56.4 45.0-75.0 [facility] AND [id number] 18:46:00 Test Item Value Reference Range Interpretation Comments UA Nitrite (test code Negative (07/22/14 1:46 = UA Nitrite) PM) [facility] SouthLzktiwcMUOLYOTDXZ0801-47-04 18:46:00 Test Item Value Reference Range Interpretation Comments Monocytes (test code = Monocytes) 10.3 2.0-12.0 [facility]2015-06-09 18:46:00 Test Item Value Reference Range Interpretation Comments UA Blood (test code = Negative (07/22/14 1:46 UA Blood) PM) [facility] SouthZpglzubZKHLQEPMXH4777-55-87 18:46:00 Test Item Value Reference Range Interpretation Comments Lymphocytes (test code = Lymphocytes) 28.0 20.0-40.0 [facility]2015-06-09 18:46:00 Test Item Value Reference Range Interpretation Comments UA Ketones (test code = UA Negative mg/dL Ketones) [facility] SouthPcidqgfRJQAAAXQFC1993-30-54 18:46:00 Test Item Value Reference Range Interpretation Comments Monocytes # (test code 0.5 See_Comment [Aut omated message] The = Monocytes #) system which generated this result tra nsmitted reference range : <=0.8. The reference r mitra was not used to int erpret this result as normal/abnormal . [facility]2015-06-09 18:46:00 Test Item Value Reference Range Interpretation Comments UA Bili (test code = Negative *NA*(07/22/14 UA Bili) 1:46 PM) [facility] SouthQomlduhMSVUFAYMLA5670-38-45 18:46:00 Test Item Value Reference Range Interpretation Comments Basophils (test code = 1.1 See_Comment [Aut omated message] The Basophils) system which ge nerated this result tra nsmitted reference range : <=1.0. The reference r mitra was not used to int erpret this result as normal/abnormal . [facility]2015-06-09 18:46:00 Test Item Value Reference Range Interpretation Comments UA Bacteria (test code = UA Occasional /HPF Bacteria) [facility] AND [id number] 18:46:00 Test Item Value Reference Range Interpretation Comments UA RBC (test code = no gt See_Comment [Automa elizabeth message] The UA RBC) system which ge nerated this result transmit elizabeth reference range : <=2. The reference range was not used to interpr et this result as lukas l/abnormal. [facility] SouthFoffslfBDRQRZSADD6257-79-01 18:46:00 Test Item Value Reference Range Interpretation Comments Lymphocytes # (test code = Lymphocytes 1.5 1.0-5.5 #) [facility] AND [id number] 18:46:00 Test Item Value Reference Range Interpretation Comments UA WBC (test code = 1 See_Comment [Automa elizabeth message] The UA WBC) system which ge nerated this result transmit elizabeth reference range : <=5. The reference range was not used to interpr et this result as lukas l/abnormal. [facility] SouthVbafuqeXISAUGWGMO0401-28-62 18:46:00 Test Item Value Reference Range Interpretation Comments Segs-Bands # (test code = Segs-Bands #) 2.9 1.5-8.1 [facility] AND [id number] 18:46:00 Test Item Value Reference Range Interpretation Comments UA Glucose (test code = UA Glucose) 30 mg/dL [facility] SouthCrreqraLCBZCVAWUP4821-97-49 18:46:00 Test Item Value Reference Range Interpretation Comments Eosinophils # (test code 0.2 See_Comment [A utomated message] The = Eosinophils #) system whic h generated this result tra nsmitted reference range : <=0.5. The reference r mitra was not used to int erpret this result as normal/abnormal . [facility] AND [id number] 18:46:00 Test Item Value Reference Range Interpretation Comments UA Protein (test code = UA Negative mg/dL Protein) [facility] SouthDjcvaqxSKPVJDBSML7263-83-65 18:46:00 Test Item Value Reference Range Interpretation Comments Basophils # (test code 0.1 See_Comment [Aut omated message] The = Basophils #) system which generated this result tra nsmitted reference range : <=0.2. The reference r mitra was not used to int erpret this result as normal/abnormal . [facility] AND [id number] 18:46:00 Test Item Value Reference Range Interpretation Comments UA pH (test code = UA pH) 6.5 5.0-8.0 [facility] SouthTgbrquiALEHRVWHME5395-86-75 18:46:00 Test Item Value Reference Range Interpretation Comments PT (test code = PT) 11.2 s 12.0-14.7 [facility] SouthGdfcstmDEWWYKALPF4082-70-37 18:46:00 Test Item Value Reference Range Interpretation Comments INR (test code = INR) 0.82 0.85-1.17 [facility] AND [id number] 18:46:00 Test Item Value Reference Range Interpretation Comments UA Turbidity (test code = Clear (07/22/14 1:46 UA Turbidity) PM) [facility] SouthEqdlanjDNSDHMKBZN8216-71-28 18:46:00 Test Item Value Reference Range Interpretation Comments PTT (test code = PTT) 28.6 s 22.9-35.8 [facility] AND [id number] 18:46:00 Test Item Value Reference Range Interpretation Comments UA Spec Grav (test code = UA Spec Grav) 1.010 [facility] SouthZiuibfgSEWMGJFXMM0007-98-90 18:46:00 Test Item Value Reference Range Interpretation Comments MPV (test code = MPV) 8.1 7.4-10.4 [facility] AND [id number] 18:46:00 Test Item Value Reference Range Interpretation Comments UA Color (test code = Light Yellow UA Color) *NA*(07/22/14 1:46 PM) [facility] SouthMhmizjcXGMJVHSKEK9155-79-21 18:46:00 Test Item Value Reference Range Interpretation Comments Platelet (test code = Platelet) 301 133-450 [facility] SouthMwxdxffIXLYFPVEOG1950-01-50 18:46:00 Test Item Value Reference Range Interpretation Comments RDW (test code = RDW) 14.5 11.5-14.5 [facility] SouthJuomyezFYTKGCKFLN9891-52-27 18:46:00 Test Item Value Reference Range Interpretation Comments RBC (test code = RBC) 4.84 4.70-6.10 [facility] SouthXwrrzgaGYEGKVDINQ2372-55-49 18:46:00 Test Item Value Reference Range Interpretation Comments Hgb (test code = Hgb) 14.4 14.0-18.0 [facility] SouthZslgkozGDCILISMUL8021-88-60 18:46:00 Test Item Value Reference Range Interpretation Comments WBC (test code = WBC) 5.2 3.7-10.4 [facility]roAVYKQVWMBM4089-63-81 18:46:00 Test Item Value Reference Range Interpretation Comments MCH (test code = MCH) 29.8 pg 27.0-31.0 [facility]GbyfiilCFFCKQXSOF9239-52-89 18:46:00 Test Item Value Reference Range Interpretation Comments MCV (test code = MCV) 92.0 80.0-94.0 [facility] AreaSquvviaHYXCLBFCNJ9356-60-10 18:46:00 Test Item Value Reference Range Interpretation Comments Hct (test code = Hct) 44.5 42.0-54.0 [facility] HospitalTjhskhaGZTKBYZLKB5450-54-85 18:46:00 Test Item Value Reference Range Interpretation Comments MCHC (test code = MCHC) 32.4 32.0-36.0 [facility] AreaRwopiceSGBNUXUBZW1964-57-81 18:46:00 Test Item Value Reference Range Interpretation Comments [employer] [place]-Hep C Ab (test Negative *NA*(07/22/14 code = [place]-Hep C 1:46 PM) Ab) [facility] AND [id number] 18:46:00 Test Item Value Reference Range Interpretation Comments UA Urobilinogen (test code = UA <=1.0 mg/dL 0.1-1.0 Urobilinogen) [facility] AND [id number] 18:46:00 Test Item Value Reference Range Interpretation Comments UA Sq Epi (test code = UA Sq Epi) None Seen [facility] AND [id number] 18:46:00 Test Item Value Reference Range Interpretation Comments UA Leuk Est (test Negative (07/22/14 1:46 code = UA Leuk Est) PM) [facility] [id number] 18:46:00 Test Item Value Reference Range Interpretation Comments UA Nitrite (test code Negative (07/22/14 1:46 = UA Nitrite) PM) [facility]annRUN[facility] [id number] 18:46:00 Test Item Value Reference Range Interpretation Comments UA Blood (test code = Negative (07/22/14 1:46 UA Blood) PM) [facility] [id number] 18:46:00 Test Item Value Reference Range Interpretation Comments UA Ketones (test code = UA Negative mg/dL Ketones) [facility] AND [id number] 18:46:00 Test Item Value Reference Range Interpretation Comments UA Bili (test code = Negative *NA*(07/22/14 UA Bili) 1:46 PM) [facility] AND [id number] 18:46:00 Test Item Value Reference Range Interpretation Comments UA Bacteria (test code = UA Occasional /HPF Bacteria) [facility] AND [id number] 18:46:00 Test Item Value Reference Range Interpretation Comments UA RBC (test code = no gt See_Comment [Automa elizabeth message] The UA RBC) system which ge nerated this result transmit elizabeth reference range : <=2. The reference range was not used to interpr et this result as lukas l/abnormal. [facility] AND [id number] 18:46:00 Test Item Value Reference Range Interpretation Comments UA WBC (test code = 1 See_Comment [Automa elizabeth message] The UA WBC) system which ge nerated this result transmit elizabeth reference range : <=5. The reference range was not used to interpr et this result as lukas l/abnormal. [facility] AND [id number] 18:46:00 Test Item Value Reference Range Interpretation Comments UA Glucose (test code = UA Glucose) 30 mg/dL [facility] AND [id number] 18:46:00 Test Item Value Reference Range Interpretation Comments UA Protein (test code = UA Negative mg/dL Protein) [facility] AND [id number] 18:46:00 Test Item Value Reference Range Interpretation Comments UA pH (test code = UA pH) 6.5 5.0-8.0 [facility] AND [id number] 18:46:00 Test Item Value Reference Range Interpretation Comments UA Turbidity (test code = Clear (07/22/14 1:46 UA Turbidity) PM) [facility] AND [id number] 18:46:00 Test Item Value Reference Range Interpretation Comments UA Spec Grav (test code = UA Spec Grav) 1.010 [facility] AND [id number] 18:46:00 Test Item Value Reference Range Interpretation Comments UA Color (test code = Light Yellow UA Color) *NA*(07/22/14 1:46 PM) [facility]2015-06-09 18:46:00 Test Item Value Reference Range Interpretation Comments Magnesium Lvl (test code = Magnesium 1.8 1.8-2.4 Lvl) [facility] HospitalQkoydzaLZIPGXEEAYBP5180-36-55 18:46:00 Test Item Value Reference Range Interpretation Comments AGAP (test code = AGAP) 13.2 10.0-20.0 [facility] HospitalOmwdeowVQAUKREHELOE5772-93-54 18:46:00 Test Item Value Reference Range Interpretation Comments B/C Ratio (test code = B/C Ratio) 18 6-25 [facility] HospitalKosjuqyLZIMSZEFFJLR7873-75-46 18:46:00 Test Item Value Reference Range Interpretation Comments A/G Ratio (test code = A/G Ratio) 1.1 0.7-1.6 [facility] HospitalVvxdrxfHGBOQRHWTKPQ4866-12-36 18:46:00 Test Item Value Reference Range Interpretation Comments Globulin (test code = Globulin) 3.3 2.0-4.0 [facility] HospitalUquxuujTFNISJKLHWUE2434-99-81 18:46:00 Test Item Value Reference Range Interpretation Comments eGFR (test code = eGFR) 99 [facility] HospitalIyaeyqrCXTJHQHNAYBZ4331-31-49 18:46:00 Test Item Value Reference Range Interpretation Comments Calcium Lvl (test code = Calcium Lvl) 9.0 8.5-10.5 [facility] HospitalBwbjpfwRRHWGAYUEZFQ2760-48-16 18:46:00 Test Item Value Reference Range Interpretation Comments Chloride Lvl (test code = Chloride Lvl) 106 95-109 [facility] HospitalMbjzvzgERVRVMPBCLSO4443-46-22 18:46:00 Test Item Value Reference Range Interpretation Comments Creatinine Lvl (test code = Creatinine 0.9 0.5-1.4 Lvl) [facility] HospitalQkdcxbrVYGXKOYCTJHI4397-29-53 18:46:00 Test Item Value Reference Range Interpretation Comments Potassium Lvl (test code = Potassium 4.2 3.5-5.1 Lvl) [facility] HospitalXeyoxifMJKGTRSLRFRS0967-42-42 18:46:00 Test Item Value Reference Range Interpretation Comments Sodium Lvl (test code = Sodium Lvl) 139 135-145 [facility] HospitalAvlkuvyMDGWRVCKOZKM8317-50-95 18:46:00 Test Item Value Reference Range Interpretation Comments CO2 (test code = CO2) 24 24-32 [facility] Hospital[id number] 18:46:00 Test Item Value Reference Range Interpretation Comments BUN (test code = BUN) 16 7-22 [facility][id number] 18:46:00 Test Item Value Reference Range Interpretation Comments Glucose Lvl (test code = Glucose Lvl) 141 70-99 [facility] HospitalDkyfpsvGFMNPZIGFWOA2589-30-89 18:46:00 Test Item Value Reference Range Interpretation Comments Albumin Lvl (test code = Albumin Lvl) 3.6 3.5-5.0 [facility] HospitalIuuvuvxHSMGTXPPNOMX1694-98-98 18:46:00 Test Item Value Reference Range Interpretation Comments Alk Phos (test code = Alk Phos) 65 39-136 [facility] HospitalMnfroykWGOHMSKRTNUU2981-82-86 18:46:00 Test Item Value Reference Range Interpretation Comments Bili Total (test code = Bili Total) 0.3 0.2-1.3 [facility] HospitalYuicwhgUUDFVSWLEWHC1364-53-60 18:46:00 Test Item Value Reference Range Interpretation Comments ALT (test code = ALT) 100 See_Comment [Auto mated message] The system which ge nerated this result transmit elizabeth reference range : <=65. The reference range was not used to interpr et this result as lukas l/abnormal. [facility] HospitalUhopwtrHCFJKFCCCJEI6767-29-11 18:46:00 Test Item Value Reference Range Interpretation Comments AST (test code = AST) 53 See_Comment [Auto mated message] The system which ge nerated this result transmit elizabeth reference range : <=37. The reference range was not used to interpr et this result as lukas l/abnormal. [facility] HospitalQozuqweBBLJGEBKYCFJ1474-87-03 18:46:00 Test Item Value Reference Range Interpretation Comments Total Protein (test code = Total 6.9 6.4-8.4 Protein) [facility]ElrsmmpAOLFZXBWYW4538-31-67 18:46:00 Test Item Value Reference Range Interpretation Comments Eosinophils (test code = 4.2 See_Comment [A utomated message] The Eosinophils) system which ge nerated this result tra nsmitted reference range : <=4.0. The reference r mitra was not used to int erpret this result as normal/abnormal . [facility] SouthKejcqfeTWFSWWVTHO7321-07-52 18:46:00 Test Item Value Reference Range Interpretation Comments Segs (test code = Segs) 56.4 45.0-75.0 [facility] SouthEcyrpumTLHLXWQZSI9503-15-05 18:46:00 Test Item Value Reference Range Interpretation Comments Monocytes (test code = Monocytes) 10.3 2.0-12.0 [facility] SouthXouluuiGJWXDCABPR8300-93-00 18:46:00 Test Item Value Reference Range Interpretation Comments Lymphocytes (test code = Lymphocytes) 28.0 20.0-40.0 [facility] SouthGdthhicGHFPDDNMKM4548-95-03 18:46:00 Test Item Value Reference Range Interpretation Comments Monocytes # (test code 0.5 See_Comment [Aut omated message] The = Monocytes #) system which generated this result tra nsmitted reference range : <=0.8. The reference r mitra was not used to int erpret this result as normal/abnormal . [facility] SouthMcpxnijCDKWERSMBM8389-95-26 18:46:00 Test Item Value Reference Range Interpretation Comments Basophils (test code = 1.1 See_Comment [Aut omated message] The Basophils) system which ge nerated this result tra nsmitted reference range : <=1.0. The reference r mitra was not used to int erpret this result as normal/abnormal . [facility] SouthUdncfxhTDYFSADWRH0717-41-23 18:46:00 Test Item Value Reference Range Interpretation Comments Lymphocytes # (test code = Lymphocytes 1.5 1.0-5.5 #) [facility] SouthYbhshpmYLHTAAXBTZ9761-51-58 18:46:00 Test Item Value Reference Range Interpretation Comments Segs-Bands # (test code = Segs-Bands #) 2.9 1.5-8.1 [facility] SouthBpcrdioPZZBLIFUKJ4840-27-85 18:46:00 Test Item Value Reference Range Interpretation Comments Eosinophils # (test code 0.2 See_Comment [A utomated message] The = Eosinophils #) system [facility] generated this result tra nsmitted reference range : <=0.5. The reference r mitra was not used to int erpret this result as normal/abnormal . [facility] SouthEmeeljxDTAVFGQMPP4824-28-84 18:46:00 Test Item Value Reference Range Interpretation Comments Basophils # (test code 0.1 See_Comment [Aut omated message] The = Basophils #) system which generated this result tra nsmitted reference range : <=0.2. The reference r mitra was not used to int erpret this result as normal/abnormal . [facility] SouthIxfblouHTSWYZDMJD1224-89-79 18:46:00 Test Item Value Reference Range Interpretation Comments PT (test code = PT) 11.2 s 12.0-14.7 [facility] SouthYwxobavMTATLDYDBT8333-40-13 18:46:00 Test Item Value Reference Range Interpretation Comments INR (test code = INR) 0.82 0.85-1.17 [facility] SouthLufpzgwXDFCAAJEIK1530-34-73 18:46:00 Test Item Value Reference Range Interpretation Comments PTT (test code = PTT) 28.6 s 22.9-35.8 [facility] SouthEqmquxiBQTOAGMGSD5031-74-46 18:46:00 Test Item Value Reference Range Interpretation Comments MPV (test code = MPV) 8.1 7.4-10.4 [facility] SouthYwyuhduUDATXUICQZ9141-79-24 18:46:00 Test Item Value Reference Range Interpretation Comments Platelet (test code = Platelet) 301 133-450 [facility] SouthMsephylBQIWITGMDM6463-18-36 18:46:00 Test Item Value Reference Range Interpretation Comments RDW (test code = RDW) 14.5 11.5-14.5 [facility] SouthSdvlricQUCCOJEGCU3081-22-46 18:46:00 Test Item Value Reference Range Interpretation Comments RBC (test code = RBC) 4.84 4.70-6.10 [facility] SouthGanppegCKRRCJXRCL7368-59-01 18:46:00 Test Item Value Reference Range Interpretation Comments Hgb (test code = Hgb) 14.4 14.0-18.0 [facility] SouthFcrwbdbDSKLPKVZXK8589-00-64 18:46:00 Test Item Value Reference Range Interpretation Comments WBC (test code = WBC) 5.2 3.7-10.4 [facility] SouthVdladhcFLVSEWBNFB4158-01-93 18:46:00 Test Item Value Reference Range Interpretation Comments MCH (test code = MCH) 29.8 pg 27.0-31.0 [facility] SouthSxatacpDOUZXVKCUX3995-68-87 18:46:00 Test Item Value Reference Range Interpretation Comments MCV (test code = MCV) 92.0 80.0-94.0 [facility] SouthSkbekleXOQYQYWSUI4901-18-90 18:46:00 Test Item Value Reference Range Interpretation Comments Hct (test code = Hct) 44.5 42.0-54.0 [facility]RpbnuviOVYTKLEIEM9284-81-14 18:46:00 Test Item Value Reference Range Interpretation Comments MCHC (test code = MCHC) 32.4 32.0-36.0 [facility] CenterKifjqumAEKOPSCZEE0984-97-47 18:46:00 Test Item Value Reference Range Interpretation Comments [place]-Hep C Ab (test Negative *NA*(07/22/14 code = [place]-Hep C 1:46 PM) Ab) [facility] AND [id number] 18:46:00 Test Item Value Reference Range Interpretation Comments UA Urobilinogen (test code = UA <=1.0 mg/dL 0.1-1.0 Urobilinogen) [facility] AND [id number] 18:46:00 Test Item Value Reference Range Interpretation Comments UA Sq Epi (test code = UA Sq Epi) None Seen [facility] AND [id number] 18:46:00 Test Item Value Reference Range Interpretation Comments UA Leuk Est (test Negative (07/22/14 1:46 code = UA Leuk Est) PM) [facility] AND [id number] 18:46:00 Test Item Value Reference Range Interpretation Comments UA Nitrite (test code Negative (07/22/14 1:46 = UA Nitrite) PM) [facility] AND [id number] 18:46:00 Test Item Value Reference Range Interpretation Comments UA Blood (test code = Negative (07/22/14 1:46 UA Blood) PM) [facility] AND [id number] 18:46:00 Test Item Value Reference Range Interpretation Comments UA Ketones (test code = UA Negative mg/dL Ketones) [facility] AND [id number] 18:46:00 Test Item Value Reference Range Interpretation Comments UA Bili (test code = Negative *NA*(07/22/14 UA Bili) 1:46 PM) [facility] AND [id number] 18:46:00 Test Item Value Reference Range Interpretation Comments UA Bacteria (test code = UA Occasional /HPF Bacteria) [facility] AND [id number] 18:46:00 Test Item Value Reference Range Interpretation Comments UA RBC (test code = no gt See_Comment [Automa elizabeth message] The UA RBC) system which ge nerated this result transmit elizabeth reference range : <=2. The reference range was not used to interpr et this result as lukas l/abnormal. [facility] AND [id number] 18:46:00 Test Item Value Reference Range Interpretation Comments UA WBC (test code = 1 See_Comment [Automa elizabeth message] The UA WBC) system which ge nerated this result transmit elizabeth reference range : <=5. The reference range was not used to interpr et this result as lukas l/abnormal. [facility]ann[facility] [id number] 18:46:00 Test Item Value Reference Range Interpretation Comments UA Glucose (test code = UA Glucose) 30 mg/dL [facility] AND [id number] 18:46:00 Test Item Value Reference Range Interpretation Comments UA Protein (test code = UA Negative mg/dL Protein) [facility] AND [id number] 18:46:00 Test Item Value Reference Range Interpretation Comments UA pH (test code = UA pH) 6.5 5.0-8.0 [facility] AND [id number] 18:46:00 Test Item Value Reference Range Interpretation Comments UA Turbidity (test code = Clear (07/22/14 1:46 UA Turbidity) PM) [facility] AND [id number] 18:46:00 Test Item Value Reference Range Interpretation Comments UA Spec Grav (test code = UA Spec Grav) 1.010 [facility] AND [id number] 18:46:00 Test Item Value Reference Range Interpretation Comments UA Color (test code = Light Yellow UA Color) *NA*(07/22/14 1:46 PM) [facility]annCHEM [id number] 18:46:00 Test Item Value Reference Range Interpretation Comments Magnesium Lvl (test code = Magnesium 1.8 1.8-2.4 Lvl) [facility] CenterDgoqtetMGLSZWZGQUWQ2197-80-52 18:46:00 Test Item Value Reference Range Interpretation Comments AGAP (test code = AGAP) 13.2 10.0-20.0 [facility]BfbivsuFFCVKTNUYARA3730-06-42 18:46:00 Test Item Value Reference Range Interpretation Comments B/C Ratio (test code = B/C Ratio) 18 6-25 [facility] HospitalZxukgeyWKTXRMTQOBDT5078-75-46 18:46:00 Test Item Value Reference Range Interpretation Comments A/G Ratio (test code = A/G Ratio) 1.1 0.7-1.6 [facility] HospitalCeekricVLSAAEGTDYQF9943-04-45 18:46:00 Test Item Value Reference Range Interpretation Comments Globulin (test code = Globulin) 3.3 2.0-4.0 [facility] HospitalQdditkfDYTICMYUUOYL5164-06-40 18:46:00 Test Item Value Reference Range Interpretation Comments eGFR (test code = eGFR) 99 [facility] HospitalKpjtzcvFAXHVHGTDQXT4390-94-43 18:46:00 Test Item Value Reference Range Interpretation Comments Calcium Lvl (test code = Calcium Lvl) 9.0 8.5-10.5 [facility] HospitalOzzhqkjKCGMYLGMCGIX2127-64-81 18:46:00 Test Item Value Reference Range Interpretation Comments Chloride Lvl (test code = Chloride Lvl) 106 95-109 [facility] HospitalAacmtqbVVGOZGXWYZRS0883-58-77 18:46:00 Test Item Value Reference Range Interpretation Comments Creatinine Lvl (test code = Creatinine 0.9 0.5-1.4 Lvl) [facility] HospitalJjodtovEERHLEWUMHSA8320-81-72 18:46:00 Test Item Value Reference Range Interpretation Comments Potassium Lvl (test code = Potassium 4.2 3.5-5.1 Lvl) [facility] HospitalHfztjcjCZBEUOWFAXNP5966-02-85 18:46:00 Test Item Value Reference Range Interpretation Comments Sodium Lvl (test code = Sodium Lvl) 139 135-145 [facility] HospitalWfjbqggVMUVMSBGPYVE8198-24-09 18:46:00 Test Item Value Reference Range Interpretation Comments CO2 (test code = CO2) 24 24-32 [facility] HospitalOkxhfacYTDRSHALRHHG8523-68-78 18:46:00 Test Item Value Reference Range Interpretation Comments BUN (test code = BUN) 16 7-22 [facility] HospitalSragmafKSDEJIDEXBZX5654-30-59 18:46:00 Test Item Value Reference Range Interpretation Comments Glucose Lvl (test code = Glucose Lvl) 141 70-99 [facility] HospitalLwbzvpjXPAOGTJKQKGT6782-84-39 18:46:00 Test Item Value Reference Range Interpretation Comments Albumin Lvl (test code = Albumin Lvl) 3.6 3.5-5.0 [facility] HospitalUcpexleJALZJMUPSLRR6098-35-61 18:46:00 Test Item Value Reference Range Interpretation Comments Alk Phos (test code = Alk Phos) 65 39-136 [facility] HospitalQtiuwhcRXJDZEWQFCUG6884-89-36 18:46:00 Test Item Value Reference Range Interpretation Comments Bili Total (test code = Bili Total) 0.3 0.2-1.3 [facility] HospitalPxfvwczGDRJNSQWVZJA5898-58-50 18:46:00 Test Item Value Reference Range Interpretation Comments ALT (test code = ALT) 100 See_Comment [Auto mated message] The system which ge nerated this result transmit elizabeth reference range : <=65. The reference range was not used to interpr et this result as lukas l/abnormal. [facility] HospitalNfbfmxnTFUEHIXVEXZO0565-56-86 18:46:00 Test Item Value Reference Range Interpretation Comments AST (test code = AST) 53 See_Comment [Auto mated message] The system which ge nerated this result transmit elizabeth reference range : <=37. The reference range was not used to interpr et this result as lukas l/abnormal. [facility] HospitalSytpiifZDGDVLXPIHTH2270-36-48 18:46:00 Test Item Value Reference Range Interpretation Comments Total Protein (test code = Total 6.9 6.4-8.4 Protein) [facility] SouthLjquvygSSPYYKNOFN4629-29-43 18:46:00 Test Item Value Reference Range Interpretation Comments Eosinophils (test code = 4.2 See_Comment [A utomated message] The Eosinophils) system which ge nerated this result tra nsmitted reference range : <=4.0. The reference r mitra was not used to int erpret this result as normal/abnormal . [facility] SouthQeolbkjOTEBCKNIRK0852-36-99 18:46:00 Test Item Value Reference Range Interpretation Comments Segs (test code = Segs) 56.4 45.0-75.0 [facility] SouthBghupchSKGJZCCFVL0616-05-52 18:46:00 Test Item Value Reference Range Interpretation Comments Monocytes (test code = Monocytes) 10.3 2.0-12.0 [facility] SouthXukfxqlTNUGLTEDDD4932-01-00 18:46:00 Test Item Value Reference Range Interpretation Comments Lymphocytes (test code = Lymphocytes) 28.0 20.0-40.0 [facility] SouthIqycwoqEZLLVTJHRT2087-11-43 18:46:00 Test Item Value Reference Range Interpretation Comments Monocytes # (test code 0.5 See_Comment [Aut omated message] The = Monocytes #) system which generated this result tra nsmitted reference range : <=0.8. The reference r mitra was not used to int erpret this result as normal/abnormal . [facility] SouthQoyzhltOEQPLSWOMF8272-58-53 18:46:00 Test Item Value Reference Range Interpretation Comments Basophils (test code = 1.1 See_Comment [Aut omated message] The Basophils) system which ge nerated this result tra nsmitted reference range : <=1.0. The reference r mitra was not used to int erpret this result as normal/abnormal . [facility] SouthGjebkaqWGLUBTNJET7044-60-20 18:46:00 Test Item Value Reference Range Interpretation Comments Lymphocytes # (test code = Lymphocytes 1.5 1.0-5.5 #) [facility] SouthUjjbeofPWYBYAUXBR5556-48-76 18:46:00 Test Item Value Reference Range Interpretation Comments Segs-Bands # (test code = Segs-Bands #) 2.9 1.5-8.1 [facility] SouthMcxnqapLFJRHLGVMR5551-23-25 18:46:00 Test Item Value Reference Range Interpretation Comments Eosinophils # (test code 0.2 See_Comment [A utomated message] The = Eosinophils #) system whic h generated this result tra nsmitted reference range : <=0.5. The reference r mitra was not used to int erpret this result as normal/abnormal . [facility] SouthJqrsmqjPZZSMLEMLI2516-62-66 18:46:00 Test Item Value Reference Range Interpretation Comments Basophils # (test code 0.1 See_Comment [Aut omated message] The = Basophils #) system which generated this result tra nsmitted reference range : <=0.2. The reference r mitra was not used to int erpret this result as normal/abnormal . [facility] SouthHllzohqPLMAVLWRND2094-19-54 18:46:00 Test Item Value Reference Range Interpretation Comments PT (test code = PT) 11.2 s 12.0-14.7 [facility] SouthXxxiqylUCYVBOLYPO7555-41-39 18:46:00 Test Item Value Reference Range Interpretation Comments INR (test code = INR) 0.82 0.85-1.17 [facility] SouthDicpxtwUBISKPONWW2088-22-95 18:46:00 Test Item Value Reference Range Interpretation Comments PTT (test code = PTT) 28.6 s 22.9-35.8 [facility]MbdvchaXYJNFYHSPK3851-96-75 18:46:00 Test Item Value Reference Range Interpretation Comments MPV (test code = MPV) 8.1 7.4-10.4 [facility] HospitalBfibujgNPSFMCNCZP5801-79-18 18:46:00 Test Item Value Reference Range Interpretation Comments Platelet (test code = Platelet) 301 133-450 [facility] HospitalJedlruqCZOYFYXVMR5796-65-72 18:46:00 Test Item Value Reference Range Interpretation Comments RDW (test code = RDW) 14.5 11.5-14.5 [facility] HospitalBjycfvuRVAZWSHAYS2218-29-23 18:46:00 Test Item Value Reference Range Interpretation Comments RBC (test code = RBC) 4.84 4.70-6.10 [facility] HospitalDznwfvvDIDUFTKJKP9989-59-45 18:46:00 Test Item Value Reference Range Interpretation Comments Hgb (test code = Hgb) 14.4 14.0-18.0 [facility] HospitalDminojgVZLMWOISNO4973-11-07 18:46:00 Test Item Value Reference Range Interpretation Comments WBC (test code = WBC) 5.2 3.7-10.4 [facility] HospitalQgotfxxWCKIZLCSBT9648-46-45 18:46:00 Test Item Value Reference Range Interpretation Comments MCH (test code = MCH) 29.8 pg 27.0-31.0 [facility] HospitalWmsmrxdDWXASVBHGI1822-11-11 18:46:00 Test Item Value Reference Range Interpretation Comments MCV (test code = MCV) 92.0 80.0-94.0 [facility] AreaGymqasuJAILQTEIDT4341-73-56 18:46:00 Test Item Value Reference Range Interpretation Comments Hct (test code = Hct) 44.5 42.0-54.0 [facility] HospitalIprucoiQFWKJFDBAP6285-04-01 18:46:00 Test Item Value Reference Range Interpretation Comments MCHC (test code = MCHC) 32.4 32.0-36.0 [facility] AreaExakozlPPOZXYTNBK8613-46-89 18:46:00 Test Item Value Reference Range Interpretation Comments [place]-Hep C Ab (test Negative *NA*(07/22/14 code = [place]-Hep C 1:46 PM) Ab) [facility] [id number] 18:46:00 Test Item Value Reference Range Interpretation Comments UA Urobilinogen (test code = UA <=1.0 mg/dL 0.1-1.0 Urobilinogen) [facility] AND [id number] 18:46:00 Test Item Value Reference Range Interpretation Comments UA Sq Epi (test code = UA Sq Epi) None Seen [facility] AND [id number] 18:46:00 Test Item Value Reference Range Interpretation Comments UA Leuk Est (test Negative (07/22/14 1:46 code = UA Leuk Est) PM) [facility] AND [id number] 18:46:00 Test Item Value Reference Range Interpretation Comments UA Nitrite (test code Negative (07/22/14 1:46 = UA Nitrite) PM) [facility] AND [id number] 18:46:00 Test Item Value Reference Range Interpretation Comments UA Blood (test code = Negative (07/22/14 1:46 UA Blood) PM) [facility] AND [id number] 18:46:00 Test Item Value Reference Range Interpretation Comments UA Ketones (test code = UA Negative mg/dL Ketones) [facility] AND [id number] 18:46:00 Test Item Value Reference Range Interpretation Comments UA Bili (test code = Negative *NA*(07/22/14 UA Bili) 1:46 PM) [facility] AND [id number] 18:46:00 Test Item Value Reference Range Interpretation Comments UA Bacteria (test code = UA Occasional /HPF Bacteria) [facility] AND [id number] 18:46:00 Test Item Value Reference Range Interpretation Comments UA RBC (test code = no gt See_Comment [Automa elizabeth message] The UA RBC) system which ge nerated this result transmit elizabeth reference range : <=2. The reference range was not used to interpr et this result as lukas l/abnormal. [facility] AND [id number] 18:46:00 Test Item Value Reference Range Interpretation Comments UA WBC (test code = 1 See_Comment [Automa elizabeth message] The UA WBC) system which ge nerated this result transmit elizabeth reference range : <=5. The reference range was not used to interpr et this result as lukas l/abnormal. [facility] AND [id number] 18:46:00 Test Item Value Reference Range Interpretation Comments UA Glucose (test code = UA Glucose) 30 mg/dL [facility] AND [id number] 18:46:00 Test Item Value Reference Range Interpretation Comments UA Protein (test code = UA Negative mg/dL Protein) [facility] AND [id number] 18:46:00 Test Item Value Reference Range Interpretation Comments UA pH (test code = UA pH) 6.5 5.0-8.0 [facility] AND [id number] 18:46:00 Test Item Value Reference Range Interpretation Comments UA Turbidity (test code = Clear (07/22/14 1:46 UA Turbidity) PM) [facility] AND [id number] 18:46:00 Test Item Value Reference Range Interpretation Comments UA Spec Grav (test code = UA Spec Grav) 1.010 [facility] AND [id number] 18:46:00 Test Item Value Reference Range Interpretation Comments UA Color (test code = Light Yellow UA Color) *NA*(07/22/14 1:46 PM) [facility] [id number] 18:46:00 Test Item Value Reference Range Interpretation Comments Magnesium Lvl (test code = Magnesium 1.8 1.8-2.4 Lvl) [facility]NdrqjseGIKFCFKOZJLO8490-61-92 18:46:00 Test Item Value Reference Range Interpretation Comments AGAP (test code = AGAP) 13.2 10.0-20.0 [facility] HospitalKtvolvjAPSAYTXOPTLA8412-11-27 18:46:00 Test Item Value Reference Range Interpretation Comments B/C Ratio (test code = B/C Ratio) 18 6-25 [facility] HospitalVfzlxyhGUKWGLOYJFWY5112-35-12 18:46:00 Test Item Value Reference Range Interpretation Comments A/G Ratio (test code = A/G Ratio) 1.1 0.7-1.6 [facility] HospitalUstfvsnCHZGBYRZIJBG5670-69-81 18:46:00 Test Item Value Reference Range Interpretation Comments Globulin (test code = Globulin) 3.3 2.0-4.0 [facility] HospitalBlrkrraAIAYWXEMLNVX2031-03-80 18:46:00 Test Item Value Reference Range Interpretation Comments eGFR (test code = eGFR) 99 [facility] HospitalWqgwvkgFIIMHFASIJAR5164-70-19 18:46:00 Test Item Value Reference Range Interpretation Comments Calcium Lvl (test code = Calcium Lvl) 9.0 8.5-10.5 [facility] HospitalNkmsucwJFKNUBZJFIUE8069-19-75 18:46:00 Test Item Value Reference Range Interpretation Comments Chloride Lvl (test code = Chloride Lvl) 106 95-109 [facility] HospitalDvmzmxmUCFXYDYJBWBU4598-95-10 18:46:00 Test Item Value Reference Range Interpretation Comments Creatinine Lvl (test code = Creatinine 0.9 0.5-1.4 Lvl) [facility] HospitalKnoifsrXOXIHEPWJRZA6934-96-69 18:46:00 Test Item Value Reference Range Interpretation Comments Potassium Lvl (test code = Potassium 4.2 3.5-5.1 Lvl) [facility] HospitalLmujraaCDPFFFAVRCXP4533-84-88 18:46:00 Test Item Value Reference Range Interpretation Comments Sodium Lvl (test code = Sodium Lvl) 139 135-145 [facility] HospitalGmojorqABJWQISCSFSG3968-58-72 18:46:00 Test Item Value Reference Range Interpretation Comments CO2 (test code = CO2) 24 24-32 [facility] HospitalDbqttswXUCZDTMZDTMN3192-32-32 18:46:00 Test Item Value Reference Range Interpretation Comments BUN (test code = BUN) 16 7-22 [facility] HospitalOotapfjKXETEADUMNVN5199-97-63 18:46:00 Test Item Value Reference Range Interpretation Comments Glucose Lvl (test code = Glucose Lvl) 141 70-99 [facility] HospitalXilokgtPXVUDEOSJHUM2300-72-29 18:46:00 Test Item Value Reference Range Interpretation Comments Albumin Lvl (test code = Albumin Lvl) 3.6 3.5-5.0 [facility] HospitalAxpytwqQKBBSMQSTGXL6248-37-64 18:46:00 Test Item Value Reference Range Interpretation Comments Alk Phos (test code = Alk Phos) 65 39-136 [id number] 18:46:00 Test Item Value Reference Range Interpretation Comments Bili Total (test code = Bili Total) 0.3 0.2-1.3 [facility]GjbzgepZDYVWRNZWFED1036-81-33 18:46:00 Test Item Value Reference Range Interpretation Comments ALT (test code = ALT) 100 See_Comment [Auto mated message] The system which ge nerated this result transmit elizabeth reference range : <=65. The reference range was not used to interpr et this result as lukas l/abnormal. [facility]YslcjwxQPDXSZKODPEN9713-37-76 18:46:00 Test Item Value Reference Range Interpretation Comments AST (test code = AST) 53 See_Comment [Auto mated message] The system which ge nerated this result transmit elizabeth reference range : <=37. The reference range was not used to interpr et this result as lukas l/abnormal. [facility] HospitalAiadlfdLOEGFGSCEBSV6814-07-19 18:46:00 Test Item Value Reference Range Interpretation Comments Total Protein (test code = Total 6.9 6.4-8.4 Protein) [facility]qnfRPPRPXJHKW6185-02-83 18:46:00 Test Item Value Reference Range Interpretation Comments Eosinophils (test code = 4.2 See_Comment [A utomated message] The Eosinophils) system which ge nerated this result tra nsmitted reference range : <=4.0. The reference r mitra was not used to int erpret this result as normal/abnormal . [facility]NfegconIYLBYGVPDV1267-86-87 18:46:00 Test Item Value Reference Range Interpretation Comments Segs (test code = Segs) 56.4 45.0-75.0 [facility]ReitvcmVBYWXNUVUF7790-01-94 18:46:00 Test Item Value Reference Range Interpretation Comments Monocytes (test code = Monocytes) 10.3 2.0-12.0 [facility]UukfvrgLXQMIWZLIB3206-43-08 18:46:00 Test Item Value Reference Range Interpretation Comments Lymphocytes (test code = Lymphocytes) 28.0 20.0-40.0 [facility]VmbbsezCCYQUMAEAD7850-83-93 18:46:00 Test Item Value Reference Range Interpretation Comments Monocytes # (test code 0.5 See_Comment [Aut omated message] The = Monocytes #) system which generated this result tra nsmitted reference range : <=0.8. The reference r mitra was not used to int erpret this result as normal/abnormal . [facility] SouthMuaeqntIULEBISAAZ8052-37-02 18:46:00 Test Item Value Reference Range Interpretation Comments Basophils (test code = 1.1 See_Comment [Aut omated message] The Basophils) system which ge nerated this result tra nsmitted reference range : <=1.0. The reference r mitra was not used to int erpret this result as normal/abnormal . [place] [id number] 18:46:00 Test Item Value Reference Range Interpretation Comments Lymphocytes # (test code = Lymphocytes 1.5 1.0-5.5 #) [facility] SouthDwbytneXTRBAAFMOL8711-71-84 18:46:00 Test Item Value Reference Range Interpretation Comments Segs-Bands # (test code = Segs-Bands #) 2.9 1.5-8.1 [facility]PchtihqOELHVIBRYF7859-52-67 18:46:00 Test Item Value Reference Range Interpretation Comments Eosinophils # (test code 0.2 See_Comment [A utomated message] The = Eosinophils #) system whic h generated this result tra nsmitted reference range : <=0.5. The reference r mitra was not used to int erpret this result as normal/abnormal . [facility] SouthXykvfucIORHHGUBQM6756-30-77 18:46:00 Test Item Value Reference Range Interpretation Comments Basophils # (test code 0.1 See_Comment [Aut omated message] The = Basophils #) system which generated this result tra nsmitted reference range : <=0.2. The reference r mitra was not used to int erpret this result as normal/abnormal . [facility] SouthDuyccnaSXWVOJSFLW3675-12-43 18:46:00 Test Item Value Reference Range Interpretation Comments PT (test code = PT) 11.2 s 12.0-14.7 [facility] SouthGyeveteIUIZGJXPYK8156-90-72 18:46:00 Test Item Value Reference Range Interpretation Comments INR (test code = INR) 0.82 0.85-1.17 [facility]PdkuxnxVXDVNVPONY5209-40-07 18:46:00 Test Item Value Reference Range Interpretation Comments PTT (test code = PTT) 28.6 s 22.9-35.8 [facility] SouthXamnvesTTLJVVPYXV6348-71-81 18:46:00 Test Item Value Reference Range Interpretation Comments MPV (test code = MPV) 8.1 7.4-10.4 [facility] SouthNrqclmiXAWAMUNGRG2359-70-00 18:46:00 Test Item Value Reference Range Interpretation Comments Platelet (test code = Platelet) 301 133-450 [facility] SouthJbqayumGSWOOKBPYA1890-29-19 18:46:00 Test Item Value Reference Range Interpretation Comments RDW (test code = RDW) 14.5 11.5-14.5 [facility] SouthCzojojuZCCYWQHCLI3087-50-11 18:46:00 Test Item Value Reference Range Interpretation Comments RBC (test code = RBC) 4.84 4.70-6.10 [facility]NfqawowHXIFPDLXJF4567-39-48 18:46:00 Test Item Value Reference Range Interpretation Comments Hgb (test code = Hgb) 14.4 14.0-18.0 [facility]EsnnbmoRCIXDRTUGG8662-67-52 18:46:00 Test Item Value Reference Range Interpretation Comments WBC (test code = WBC) 5.2 3.7-10.4 [facility] SouthYvsvxaoYEDWCMRIXQ1921-19-34 18:46:00 Test Item Value Reference Range Interpretation Comments MCH (test code = MCH) 29.8 pg 27.0-31.0 [facility] SouthGttoqolADBRUWMIOS6414-85-42 18:46:00 Test Item Value Reference Range Interpretation Comments MCV (test code = MCV) 92.0 80.0-94.0 [facility] SouthAzrqonsKVYJDMGBQA4223-90-11 18:46:00 Test Item Value Reference Range Interpretation Comments Hct (test code = Hct) 44.5 42.0-54.0 [facility] HospitalZbatfvgBNPTFCWVGD8284-99-49 18:46:00 Test Item Value Reference Range Interpretation Comments MCHC (test code = MCHC) 32.4 32.0-36.0 [facility]dvuiZUDWELYJHA2245-81-34 18:46:00 Test Item Value Reference Range Interpretation Comments [place]-Hep C Ab (test Negative *NA*(07/22/14 code = [place]-Hep C 1:46 PM) Ab) [facility] AND [id number] 18:46:00 Test Item Value Reference Range Interpretation Comments UA Urobilinogen (test code = UA <=1.0 mg/dL 0.1-1.0 Urobilinogen) [facility] AND [id number] 18:46:00 Test Item Value Reference Range Interpretation Comments UA Sq Epi (test code = UA Sq Epi) None Seen [facility] AND [id number] 18:46:00 Test Item Value Reference Range Interpretation Comments UA Leuk Est (test Negative (07/22/14 1:46 code = UA Leuk Est) PM) [facility] AND [id number] 18:46:00 Test Item Value Reference Range Interpretation Comments UA Nitrite (test code Negative (07/22/14 1:46 = UA Nitrite) PM) [facility] AND [id number] 18:46:00 Test Item Value Reference Range Interpretation Comments UA Blood (test code = Negative (07/22/14 1:46 UA Blood) PM) [facility] AND [id number] 18:46:00 Test Item Value Reference Range Interpretation Comments UA Ketones (test code = UA Negative mg/dL Ketones) [facility] AND [id number] 18:46:00 Test Item Value Reference Range Interpretation Comments UA Bili (test code = Negative *NA*(07/22/14 UA Bili) 1:46 PM) [facility] AND [id number] 18:46:00 Test Item Value Reference Range Interpretation Comments UA Bacteria (test code = UA Occasional /HPF Bacteria) [facility]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
[2022-07-16] MEDS ORDERED: NA CHLORIDE 0.9% 1,000 ML ONE (03:25)
[2022-07-16] MEDS ORDERED: MORPHINE 2 MG/ML SYR ONE ×2 (03:25→07:01)
[2022-07-16] MEDS ORDERED: ONDANSETRON 4 MG/2 ML VIAL ONE ×2 (03:25→06:19)
[2022-07-16 03:36] LABS: Hematocrit 29.1 % (39.6-49.0); Lymphocytes % 15.6 % (15.3-44.8); MCV 86.8 fL (80-100); RBC Red Blood Cell Count 3.35 M/uL (4.33-5.43)
[2022-07-16 03:38] LABS: Protime INR 1.2
--- NOTE | 2022-07-16 03:39 | ER ---
Nurse's Notes [facility] Name: Kevin Kaye Age: 61 yrs Sex: Male : 1960 Arrival Date: 07/16/2022 Time: 01:49 Bed 8 Private MD: Diagnosis: Pain in left leg;Pain in right leg;Acute embolism and thrombosis of other specified deep vein of right lower extremity;Cellulitis and acute lymphangitis of other parts of limb-RIGHT LOWER EXT;Bipolar disorder, unspecified;Anemia, unspecified Presentation: 07/16 02:05 Chief complaint: Patient states: right lower extremity swelling and pain recent history kl of clot removal and infection. Coronavirus screen: Vaccine status: Patient reports being unvaccinated. Ebola Screen: Patient negative for fever greater than or equal to 101.5 degrees Fahrenheit, and additional compatible Ebola Virus Disease symptoms. Initial Sepsis Screen: Does the patient meet any 2 criteria? No. Patient's initial sepsis screen is negative. Does the patient have a suspected source of infection? No. Patient's initial sepsis screen is negative. Risk Assessment: Do you want to hurt yourself or someone else? Patient reports no desire to harm self or others. 02:05 Method Of Arrival: Ambulatory 02:05 Acuity: ARI 3 kl 02:09 Note pt reports has almost completed antibiotics. 07:34 Onset of symptoms was July 16, 2022. ld1 Triage Assessment: 02:08 General: Appears distressed, uncomfortable, Behavior is cooperative, anxious. Pain: Complains of pain in right leg Pain currently is 10 out of 10 on a pain scale. Aggravated by increased activity. Derm: Skin is flushed, to right lower extremity. Musculoskeletal: Swelling present in right leg. Historical: - Allergies: 02:07 PENICILLINS (rash); kl - Home Meds: 02:07 Eliquis 5 mg oral tablet every 12 hours [Active]; antibiotic [Active]; kl - PMHx: 02:07 Anxiety; Bipolar disorder; Depression; Schizophrenia; factor 5; DVT; kl - Immunization history:: Adult Immunizations not up to date. - Social history:: Smoking status: Patient reports use of chewing tobacco. - Family history:: not pertinent. Screenin:34 [facility] Fall Risk Assessment (Adult) History of falling in the last 3 months, ld1 including since admission No falls in past 3 months (0 pts). Abuse screen: Denies threats or abuse. Denies injuries from another. Nutritional screening: No deficits noted. Tuberculosis screening: No symptoms or risk factors identified. Assessment: 02:00 General: Appears in no apparent distress. uncomfortable, Behavior is calm, cooperative, jb4 appropriate for age. Pain: Complains of pain in right leg Pain does not radiate. Pain currently is 8 out of 10 on a pain scale. Neuro: Level of Consciousness is awake, alert, obeys commands, Oriented to person, place, time, situation. Cardiovascular: Patient's skin is warm and dry. Respiratory: Airway is patent Respiratory effort is even, unlabored, Respiratory pattern is regular, symmetrical. GI: Reports nausea, vomiting. : No signs and/or symptoms were reported regarding the genitourinary system. EENT: No signs and/or symptoms were reported regarding the EENT system. Derm: Skin is intact, Skin is pink, warm \T\ dry. Musculoskeletal: Circulation, motion, and sensation intact. Range of motion: intact in all extremities. 03:00 Reassessment: Pt resting in bed with eyes closed, no s/s of pain or distress noted. jb4 Snoring respirations noted, satting 99% on RA. 04:00 Reassessment: Patient appears in no apparent distress at this time. No changes from jb4 previously documented assessment. Patient and/or family updated on plan of care and expected duration. Pain level reassessed. 05:10 Reassessment: Patient appears in no apparent distress at this time. Patient and/or jb4 family updated on plan of care and expected duration. Pain level reassessed. Patient is alert, oriented x 3, equal unlabored respirations, skin warm/dry/pink. 06:17 Reassessment: Patient appears in no apparent distress at this time. Patient and/or jb4 family updated on plan of care and expected duration. Pain level reassessed. Patient is alert, oriented x 3, equal unlabored respirations, skin warm/dry/pink. Vital Signs: 02:05 BP 149 / 73; Pulse 76; Resp 20; Temp 98.7(O); Pulse Ox 100% ; Weight 84 kg (M); Height kl 5 ft. 6 in. ; Pain 10; 04:06 BP 146 / 75; Pulse 74; Resp 16; Pulse Ox 100% on R/A; jb4 05:10 BP 129 / 78; Pulse 70; Resp 16; Pulse Ox 100% on R/A; jb4 06:17 BP 132 / 79; Pulse 65; Resp 16; Pulse Ox 100% on R/A; jb4 07:34 BP 120 / 70; Pulse 71; Resp 18; Pulse Ox 99% on R/A; ld1 02:05 Body Mass Index 29.89 (84.00 kg, 167.64 cm) kl 02:05 Pain Scale: Adult kl Julee Coma Score: 02:21 Eye Response: spontaneous(4). Motor Response: obeys commands(6). Verbal Response: sharon oriented(5). Total: 15. ED Course: 01:54 Patient arrived in ED. ag3 02:05 Isaias Fuentes MD is Attending Physician. sharon 02:07 Triage completed. kl 02:09 Jimbo Diaz, RN is Primary Nurse. jb4 02:50 XRAY Chest (1 view) In Process Unspecified. EDMS 03:15 Missed attempt(s): 22 gauge in left in right antecubital area. Bleeding controlled, jb4 band aid applied, catheter tip intact. 03:25 Lactate w/ 2H reflex if indic. Sent. kl 03:25 Blood Culture Adult (2) Sent. kl 03:25 Basic Metabolic Panel Sent. kl 03:25 CBC with Diff Sent. kl 03:25 LFT's Sent. kl 03:25 Magnesium Sent. kl 03:25 NT PRO-BNP Sent. kl 03:25 PT-INR Sent. kl 03:25 Troponin HS Sent. kl 03:25 Inserted saline lock: 20 gauge in left forearm, using aseptic technique. Blood kl collected. 03:32 Lactate w/ 2H reflex if indic. Sent. kl 03:42 Initiated transfer to [facility], spoke with Lauren. wm 04:31 Pt accepted for transfer by Dr. Thompson \T\ 0415 per Lauren Collins. wm 04:35 CT Chest For PE Angio In Process Unspecified. EDMS 04:35 CT Abd/Pelvis - IV Contrast Only In Process Unspecified. EDMS 04:40 US Extremity Venous W Compression Denilson In Process Unspecified. EDMS 04:41 US LE Artery Uni Ltd In Process Unspecified. EDMS 07:00 Report received from CLIFF Gotti. kc6 07:34 No provider procedures requiring assistance completed. Patient transferred, IV remains ld1 in place. 07:34 Patient has correct armband on for positive identification. Placed in gown. Bed in low ld1 position. Call light in reach. Side rails up X2. court recording monitor on. Pulse ox on. NIBP on. Door closed. Noise minimized. 07:35 Arm band placed on right wrist. ld1 Administered Medications: 03:35 Drug: Ondansetron IVP 4 mg Route: IVP; Site: left forearm; jb4 06:17 Follow up: Response: No adverse reaction; Marked relief of symptoms jb4 04:05 Drug: NS 0.9% IV 1000 ml Route: IV; Rate: 125 ml/hr; Site: left forearm; jb4 06:17 Follow up: Response: No adverse reaction; IV Status: Infusion continued upon transfer jb4 04:05 Drug: ceFAZolin IVPB 1 grams Route: IVPB; Site: left forearm; jb4 04:35 Follow up: Response: No adverse reaction; IV Status: Completed infusion; IV Intake: [id number] 04:40 Drug: morphine IVP or IV 2 mg Route: IVP; Infused Over: 4 mins; Site: left forearm; jb4 06:17 Follow up: Response: No adverse reaction; Marked relief of symptoms jb4 06:16 Drug: Ondansetron IVP 4 mg Route: IVP; Site: left forearm; jb4 06:34 Follow up: Response: No adverse reaction; Marked relief of symptoms jb4 06:34 Drug: Eliquis PO 5 mg Route: PO; jb4 06:55 Follow up: Response: No adverse reaction jb4 06:55 Drug: morphine IVP or IV 2 mg Route: IVP; Infused Over: 4 mins; Site: left forearm; jb4 Medication: 07:35 VIS not applicable for this client. ld1 Intake: 04:35 IV: 50ml; Total: 50ml. jb4 Outcome: 03:39 ER care complete, transfer ordered by MD. herrera 07:34 Transferred by ground EMS ld1 07:34 Condition: stable 07:34 Instructed on the need for transfer. 07:35 Patient left the ED. ld1 Signatures: Dispatcher [employer] EDMelissa Higginbotham RN RN kl Anderson, Corey, MD MD cha Bryson, James, RN RN jb4 Bobbi Boone3 Kathie Aiken RN RN ld1 Iris Porter Luann Disla RN RN kc6 Corrections: (The following items were deleted from the chart) 03:41 03:35 morphine IVP or IV 2 mg IVP in left forearm over 4 mins jb4 jb4 04:07 04:05 Reassessment: Pt resting in bed with eyes closed, no s/s of pain or distress jb4 noted. Snoring respirations noted, satting 99% on RA. jb4
--- NOTE | 2022-07-16 03:40 | EDPHYS ---
Physician Documentation [facility] Name: Kevin Kaye Age: 61 yrs Sex: Male : 1960 Arrival Date: 07/16/2022 Time: 01:49 Bed 8 Private MD: PHAN Physician Isaias Fuentes HPI: 07/16 02:21 This 61 yrs old Male presents to ER via Ambulatory with complaints of Leg sharon Pain. 02:21 The patient presents with decreased range of motion, pain, swelling, tenderness. The sharon complaints affect the lateral aspect of right thigh, lateral aspect of right calf, right hamstring, right calf, medial aspect of right thigh, medial aspect of right calf, right quadriceps and right hester. Context: The problem was sustained at an unknown site. Onset: The symptoms/episode began/occurred 14 day(s) ago. Modifying factors: The symptoms are alleviated by nothing. elevating leg, the symptoms are aggravated by movement, bending knee. Associated signs and symptoms: Pertinent positives: calf tenderness, swelling, weakness. Treatment prior to arrival includes: no previous treatment. Severity of symptoms: At their worst the symptoms were moderate, in the emergency department the symptoms are unchanged. The patient has experienced similar episodes in the past, multiple times. Historical: - Allergies: 02:07 PENICILLINS (rash); kl - Home Meds: 02:07 Eliquis 5 mg oral tablet every 12 hours [Active]; antibiotic [Active]; kl - PMHx: 02:07 Anxiety; Bipolar disorder; Depression; Schizophrenia; factor 5; DVT; kl - Immunization history:: Adult Immunizations not up to date. - Social history:: Smoking status: Patient reports use of chewing tobacco. - Family history:: not pertinent. ROS: 02:21 Constitutional: Negative for fever, chills, and weight loss, Eyes: Negative for injury, sharon pain, redness, and discharge, ENT: Negative for injury, pain, and discharge, Neck: Negative for injury, pain, and swelling, Cardiovascular: Negative for chest pain, palpitations, and edema, Respiratory: Negative for shortness of breath, cough, wheezing, and pleuritic chest pain, Abdomen/GI: Negative for abdominal pain, nausea, vomiting, diarrhea, and constipation, Back: Negative for injury and pain, : Negative for injury, bleeding, discharge, and swelling, Neuro: Negative for headache, weakness, numbness, tingling, and seizure, Psych: Negative for depression, anxiety, suicide ideation, homicidal ideation, and hallucinations, Allergy/Immunology: Negative for hives, rash, and allergies, Endocrine: Negative for neck swelling, polydipsia, polyuria, polyphagia, and marked weight changes. 02:21 MS/extremity: Positive for decreased range of motion, pain, swelling, tenderness, of the right leg. 02:21 Skin: Positive for cellulitis, swelling, of the right leg. Exam: 02:21 Constitutional: This is a well developed, well nourished patient who is awake, alert, sharon and in no acute distress. Head/Face: Normocephalic, atraumatic. Eyes: Pupils equal round and reactive to light, extra-ocular motions intact. Lids and lashes normal. Conjunctiva and sclera are non-icteric and not injected. Cornea within normal limits. Periorbital areas with no swelling, redness, or edema. ENT: Nares patent. No nasal discharge, no septal abnormalities noted. Tympanic membranes are normal and external auditory canals are clear. Oropharynx with no redness, swelling, or masses, exudates, or evidence of obstruction, uvula midline. Mucous membranes moist. Neck: Trachea midline, no thyromegaly or masses palpated, and no cervical lymphadenopathy. Supple, full range of motion without nuchal rigidity, or vertebral point tenderness. No Meningismus. Chest/axilla: Normal chest wall appearance and motion. Nontender with no deformity. No lesions are appreciated. Cardiovascular: Regular rate and rhythm with a normal S1 and S2. No gallops, murmurs, or rubs. Normal PMI, no JVD. No pulse deficits. Respiratory: Lungs have equal breath sounds bilaterally, clear to auscultation and percussion. No rales, rhonchi or wheezes noted. No increased work of breathing, no retractions or nasal flaring. Abdomen/GI: Soft, non-tender, with normal bowel sounds. No distension or tympany. No guarding or rebound. No evidence of tenderness throughout. Back: No spinal tenderness. No costovertebral tenderness. Full range of motion. Male : Normal genitalia with no discharge or lesions. Neuro: Awake and alert, GCS 15, oriented to person, place, time, and situation. Cranial nerves II-XII grossly intact. Motor strength 5/5 in all extremities. Sensory grossly intact. Cerebellar exam normal. Normal gait. Psych: Awake, alert, with orientation to person, place and time. Behavior, mood, and affect are within normal limits. 02:21 Musculoskeletal/extremity: ROM: limited active range of motion due to pain, limited passive range of motion due to pain, in the right leg, Pulses: noted to be 2+ in the right posterior tibial artery and right dorsalis pedis artery, Sensation intact. Compartment Syndrome exam of affected extremity: is normal. Weight bearing: able to fully bear weight, without difficulty, DVT Exam: negative Homans' sign noted on exam, no appreciated bluish discoloration, pain, swelling, tenderness, erythema, increased warmth. 02:21 Skin: Appearance: Color: normal in color, Temperature: normal temperature, Moisture: normal moisture, petechiae, not noted, ecchymosis, not noted, diaphoresis is not appreciated, cellulitis, that is mild, confluent, on the lateral aspect of right calf, right calf, medial aspect of right calf and right hester. 03:02 ECG was reviewed by the Attending Physician. [facility] Vital Signs: 02:05 BP 149 / 73; Pulse 76; Resp 20; Temp 98.7(O); Pulse Ox 100% ; Weight 84 kg (M); Height kl 5 ft. 6 in. ; Pain 10/10; 04:06 BP 146 / 75; Pulse 74; Resp 16; Pulse Ox 100% on R/A; jb4 05:10 BP 129 / 78; Pulse 70; Resp 16; Pulse Ox 100% on R/A; jb4 06:17 BP 132 / 79; Pulse 65; Resp 16; Pulse Ox 100% on R/A; jb4 07:34 BP 120 / 70; Pulse 71; Resp 18; Pulse Ox 99% on R/A; ld1 02:05 Body Mass Index 29.89 (84.00 kg, 167.64 cm) kl 02:05 Pain Scale: Adult kl [place] Coma Score: 02:21 Eye Response: spontaneous(4). Motor Response: obeys commands(6). Verbal Response: sharon oriented(5). Total: 15. MDM: 02:[address] [facility] 02:26 Differential diagnosis: contusion, tendonitis. Data reviewed: vital signs, nurses [facility] notes, lab test result(s), EKG, radiologic studies, CT scan, doppler, plain films. Consideration of Admission/Observation Escalation of care including admission/observation considered. I considered the following discharge prescriptions or medication management in the emergency department Medications were administered in the Emergency Department. See MAR. Test considered but Not performed: CT: NO CT ABD PELVIS, REFER TO 06/20/22. Care significantly affected by the following chronic conditions: ANXIETY, BIPOLAR , DEPRESSION, FACTOR 5. DVT, MIGNON REMOVED. Counseling: I had a detailed discussion with the patient and/or guardian regarding: the historical points, exam findings, and any diagnostic results supporting the discharge/admit diagnosis, lab results, radiology results. 07/16 02:21 Order name: Basic Metabolic Panel; Complete Time: 03:58 [facility] 07/16 02:21 Order name: CBC with Diff; Complete Time: 03:58 [facility] 07/16 02:21 Order name: LFT's; Complete Time: 03:58 [facility] 07/16 02:21 Order name: Magnesium; Complete Time: 03:58 [facility] 07/16 02:21 Order name: NT PRO-BNP; Complete Time: 03:58 [facility] 07/16 02:21 Order name: PT-INR; Complete Time: 03:58 [facility] 07/16 02:21 Order name: Troponin HS; Complete Time: 03:58 [facility] 07/16 02:21 Order name: Lactate w/ 2H reflex if indic.; Complete Time: 03:58 [facility] 07/16 02:21 Order name: Blood Culture Adult (2) [facility] 07/16 02:21 Order name: XRAY Chest (1 view) [facility] 07/16 02:21 Order name: US Extremity Venous W Compression Denilson [facility] 07/16 02:29 Order name: US LE Artery Uni Ltd [facility] 07/16 02:50 Order name: CT Chest For PE Angio [facility] 07/16 02:50 Order name: CT Abd/Pelvis - IV Contrast Only [facility] 07/16 02:21 Order name: EKG; Complete Time: 02:21 [facility] 07/16 02:21 Order name: Cardiac monitoring; Complete Time: 03:15 [facility] 07/16 02:21 Order name: EKG - Nurse/Tech; Complete Time: 03:15 [facility] 07/16 02:21 Order name: IV Saline Lock; Complete Time: 03:15 [facility] 07/16 02:21 Order name: Labs collected and sent; Complete Time: 03:25 sharon 07/16 02:21 Order name: O2 Per Protocol; Complete Time: 03:15 sharon 07/16 02:21 Order name: O2 Sat Monitoring; Complete Time: 03:15 sharon EC:02 Rate is 74 beats/min. Rhythm is regular. QRS Douglass is Normal. W[place] interval is normal. QRS sharon interval is normal. QT interval is normal. No Q waves. T waves are Normal. No ST changes noted. Clinical impression: Normal ECG and No evidence of ischemia. Interpreted by me. Reviewed by me. Administered Medications: 03:35 Drug: Ondansetron IVP 4 mg Route: IVP; Site: left forearm; jb4 06:17 Follow up: Response: No adverse reaction; Marked relief of symptoms jb4 04:05 Drug: NS 0.9% IV 1000 ml Route: IV; Rate: 125 ml/hr; Site: left forearm; jb4 06:17 Follow up: Response: No adverse reaction; IV Status: Infusion continued upon transfer jb4 04:05 Drug: ceFAZolin IVPB 1 grams Route: IVPB; Site: left forearm; jb4 04:35 Follow up: Response: No adverse reaction; IV Status: Completed infusion; IV Intake: [id number] 04:40 Drug: morphine IVP or IV 2 mg Route: IVP; Infused Over: 4 mins; Site: left forearm; jb4 06:17 Follow up: Response: No adverse reaction; Marked relief of symptoms jb4 06:16 Drug: Ondansetron IVP 4 mg Route: IVP; Site: left forearm; jb4 06:34 Follow up: Response: No adverse reaction; Marked relief of symptoms jb4 06:34 Drug: Eliquis PO 5 mg Route: PO; jb4 06:55 Follow up: Response: No adverse reaction jb4 06:55 Drug: morphine IVP or IV 2 mg Route: IVP; Infused Over: 4 mins; Site: left forearm; jb4 Disposition Summary: 07/16/22 03:39 Transfer Ordered Transfer Location: [facility] sharon Reason: Higher level of care sharon Condition: Stable sharon Problem: new sharon Symptoms: have improved sharon Accepting Physician: TO [facility](07/16/22 07:35) ld1 Diagnosis - Pain in left leg sharon - Pain in right leg sharon - Acute embolism and thrombosis of other specified deep vein of right lower extremity sharon - Cellulitis and acute lymphangitis of other parts of limb - RIGHT LOWER EXT sharon - Bipolar disorder, unspecified sharon - Anemia, unspecified sharon Forms: - Medication Reconciliation Form sharon - SBAR form sharon Signatures: Dispatcher [employer] Melsisa Rolle RN RN Isaias Colbert MD MD cha Bryson, James, RN RN jb4 Kathie Aiken RN RN ld1 Corrections: (The following items were deleted from the chart) 04:00 03:39 TO [facility] sharon sharon 07:35 04:00 TO [facility] sharon ld1
[2022-07-16 03:55] LABS: Albumin 3.6 g/dL (3.4-5.0); Bilirubin Direct 0.1 mg/dL (0-0.2); Bilirubin Indirect, Calculated 0.1 mg/dL (0.2-0.8); Bilirubin Total 0.2 mg/dL (0.2-1.0); Magnesium 2.3 mg/dL (1.6-2.4); Potassium 4.2 mEq/L (3.5-5.1); Protein, Total 7.3 g/dL (6.4-8.2); Troponin High Sensitivity 5.8 pg/mL (<58.9)
[2022-07-16] MEDS ORDERED: CEFAZOLIN SODIUM 1 GM/VIAL ONE (04:06)
[2022-07-16] MEDS ORDERED: NA CHLORIDE 0.9% 50 ML ONE (04:07)
[2022-07-16] MEDS ORDERED: APIXABAN 5 MG TABLET ONE (06:39)
[2022-07-16 07:49] VITALS: TEMP 98.7
[2022-07-16 08:03] VITALS: BP 120/70; O2SAT 99
--- NOTE | 2022-07-16 20:14 | RAD REPORT ---
EXAM DESCRIPTION: CT - Abdomen Pelvis W Contrast - 07/16/2022 6:46 am CLINICAL HISTORY: The patient is 61 years old and is Male; [facility] MAIN TECHNIQUE: Axial computed tomographic angiography images of the chest and axial computed tomography images of the abdomen and pelvis with intravenous contrast. Sagittal and coronal reformatted images were created and reviewed. This CT exam was performed using one or more of the following dose redu ction techniques: automated exposure control, adjustment of the mA and/or kV according to patient s ize, and/or use of iterative reconstruction technique. MIP reconstructed images were created and reviewed. COMPARISON: No relevant prior studies available. FINDINGS: CHEST: AORTA: No acute findings. No aortic aneurysm. No dissection. PULMONARY ARTERIES: Unremarkable as visualized. No pulmonary embolism is identified. GREAT VESSELS OF AORTIC ARCH: No acute findings. No dissection. No arterial occlusion or signif icant stenosis. LUNGS: Unremarkable. No mass. No consolidation. PLEURAL SPACE: Unremarkable. No significant effusion. No pneumothorax. HEART: Unremarkable. No cardiomegaly. No significant pericardial effusion. ABDOMEN: LIVER: Unremarkable. No mass. GALLBLADDER AND BILE DUCTS: Unremarkable. No calcified stones. No ductal dilation. PANCREAS: Unremarkable. No ductal dilation. No mass. SPLEEN: Unremarkable. No splenomegaly. ADRENALS: Unremarkable. No mass. KIDNEYS AND URETERS: Unremarkable. No hydronephrosis. No solid mass. STOMACH AND BOWEL: Unremarkable. No obstruction. No mucosal thickening. PELVIS: APPENDIX: No findings to suggest acute appendicitis. BLADDER: Unremarkable. No mass. REPRODUCTIVE: Unremarkable as visualized. CHEST, ABDOMEN and PELVIS: INTRAPERITONEAL SPACE: Unremarkable. No significant fluid collection. No free air. BONES/JOINTS: Redemonstrated 2 x 1.6 cm lucent lesion involving the left lateral aspect of the T11 vertebra, barely extending into the adjacent pedicle. Moderate degenerative changes of the right hip with sclerotic changes, subchondral cyst forma tion, and slight superior femoral head cortical collapse. No acute fracture. No dislocation. SOFT TISSUES: Redemonstrated asymmetric subcutaneous stranding about the visualized right lower ext remity. Moderate-sized fatty mass with internal septations measuring approximately 8.7 x 4.7 x 9 cent imeters, immediately lateral to the right inguinal canal (axial images 93/111). VASCULATURE: Partially visualized thrombus noted in the right common iliac through common femoral v ein, as well as within the left femoral vein. Infrarenal IVC stent redemonstrated with nonocclusive thrombus noted along the medial margin of the stent lumen. LYMPH NODES: Unremarkable. No enlarged lymph nodes. IMPRESSION: 1. Partially visualized thrombus noted in the right common iliac through common femora l vein, as well as within the left femoral vein. No pulmonary embolism. 2. Infrarenal IVC stent redemonstrated with nonocclusive thrombus noted along the medial margin of the stent lumen. 3. Redemonstrated 2 x 1.6 cm lucent lesion involving the left lateral aspect of the T11 vertebra, b amee extending into the adjacent pedicle. 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 Further characterization by contrast-enhanced thoracic spine MRI or PET s can recommended. 4. Moderate degenerative changes of the right hip with sclerotic changes, subchondral cyst formatio n, and slight superior femoral head cortical collapse. 5. Moderate-sized fatty mass with internal septations measuring approximately 8.7 x 4.7 x 9 centime ters, immediately lateral to the right inguinal canal (axial images 93/111). Suspicious for lipoma. Consider further characterization by multiphase MRI to evaluate for internal enhancement. Dr. Ayoub discussed these findings regarding positive DVT with Dr. Fuentes via telephone at approxim ately 07:12 hours EST on 08/02/2022. Electronically signed by: Arnold Ayobu MD 07/16/2022 6:26 AM CDT Due to temporary technical issues with the PACS/Fluency reporting system, reports are being signed by the in house radiologists without review as a courtesy to insure prompt reporting. The interpreting radiologist is fully responsible for the content of the report.
--- NOTE | 2022-07-16 20:39 | RAD REPORT ---
EXAM DESCRIPTION: US - Lower Extremity Artery [facility] - 07/16/2022 4:39 am CLINICAL HISTORY: The patient is 61 years old and is Male; Pain;Swelling TECHNIQUE: Real-time duplex ultrasound scan of the right lower extremity arteries integrating B-mode two-dimensional vascular structure, Doppler spectral analysis and color flow Doppler imaging. COMPARISON: No relevant prior studies available. FINDINGS: RIGHT COMMON FEMORAL ARTERY: No acute findings. Peak systolic velocity in the right comm on femoral artery is 234 cm/s. Triphasic waveform. RIGHT SUPERFICIAL FEMORAL ARTERY: Peak systolic velocity in the right superficial femoral artery is 201 cm/s. Triphasic waveform in the proximal superficial femoral artery. Mid to distal right SFA demonstrates decreased velocities and monophasic waveforms. RIGHT POPLITEAL ARTERY: No acute findings. Normal waveform. Peak systolic velocity in the right popliteal artery is 133 cm/s. RIGHT CALF/FOOT ARTERIES: Peak systolic velocity in the right posterior tibial artery is 157 cm/s c onsistent with a 30-49% stenosis. Right DPA demonstrates decreased velocities and monophasic waveforms. Peak systolic velocity in the right dorsalis pedis artery is 30 cm/s. IMPRESSION: 1. Right DPA demonstrates decreased velocities and monophasic waveforms, suggesting no nvisualized proximal stenosis. 2. No occlusion or other hemodynamically significant stenosis of the right lower extremity. Electronically signed by: Arnold Ayoub MD 07/16/2022 6:38 AM CDT Due to temporary technical issues with the PACS/Fluency reporting system, reports are being signed by the in house radiologists without review as a courtesy to insure prompt reporting. The interpreting radiologist is fully responsible for the content of the report.
--- NOTE | 2022-07-16 20:41 | RAD REPORT ---
EXAM DESCRIPTION: RAD - Chest Single View - 07/16/2022 2:49 am CLINICAL HISTORY: The patient is 61 years old and is Male; COUGH [facility] MAIN TECHNIQUE: Frontal view of the chest. COMPARISON: 06/21/2022 CT chest abdomen pelvis with contrast. FINDINGS: LUNGS: Unremarkable. No consolidation. PLEURAL SPACE: Unremarkable. No pleural effusion. No pneumothorax. HEART: Unremarkable. No cardiomegaly. MEDIASTINUM: Prominence of the cardiomediastinal silhouette, likely exaggerated secondary to portab le technique, lordotic positioning, and patient body habitus. BONES/JOINTS: Unremarkable. IMPRESSION: No acute findings in the chest. Electronically signed by: Arnold Ayoub MD 07/16/2022 4:00 AM CDT Due to temporary technical issues with the PACS/Fluency reporting system, reports are being signed by the in house radiologists without review as a courtesy to insure prompt reporting. The interpreting radiologist is fully responsible for the content of the report.
--- NOTE | 2022-07-16 21:04 | RAD REPORT ---
EXAM DESCRIPTION: US - Extrem Venous W Compress [place]ilson - 07/16/2022 4:39 am CLINICAL HISTORY: The patient is 61 years old and is Male; PAIN [facility] MAIN TECHNIQUE: Real-time duplex ultrasound scan of the bilateral lower extremity veins integrating B-mod e two-dimensional vascular structure, Doppler spectral analysis, color flow Doppler imaging and compr ession. COMPARISON: No relevant prior studies available. FINDINGS: RIGHT DEEP VEINS: Nonocclusive thrombus demonstrated in the right common femoral vein an d mid to distal femoral vein. Remaining veins of the right lower extremity (proximal superficial femoral, popliteal, and po sterior tibial veins) demonstrate normal flow and compressibility. RIGHT SUPERFICIAL VEINS: Nonocclusive thrombus thrombus in the visualized right great saphenous vein. LEFT DEEP VEINS: Occlusive thrombus noted in the proximal to mid left femoral vein, with nonocclusi ve thrombus noted in the mid to distal left femoral vein. Remaining veins of the left lower extremity (common femoral, popliteal, posterior tibial vein s) demonstrate normal flow and compressibility. LEFT SUPERFICIAL VEINS: Nonocclusive thrombus in the visualized left great saphenous vein. IMPRESSION: 1. Bilateral lower extremity DVTs, with occlusive thrombus noted in the proximal mid l eft femoral vein. Nonocclusive thrombus noted in the right common femoral and bilateral mid to distal femoral veins. 2. Nonocclusive thrombus noted in the bilateral great saphenous veins. Dr. Ayoub discussed these critical findings with Dr. Isaias Fuentes via telephone at approximately 07 :11 hours EST on 08/02/2022. Electronically signed by: Arnold Ayoub MD 07/16/2022 6:14 AM CDT Due to temporary technical issues with the PACS/Fluency reporting system, reports are being signed by the in house radiologists without review as a courtesy to insure prompt reporting. The interpreting radiologist is fully responsible for the content of the report.
--- NOTE | 2022-07-17 14:19 | EKG ---
Test Date: 2022-07-16 Test Time: 02:57:42 [employer]: ABDULAZIZ MEASUREMENT RESULTS: Intervals: Rate: 74 DC: 154 QRSD: 84 QT: 380 QTc: 421 Parachute: P: 65 DC: 154 QRS: 71 T: 41 INTERPRETIVE STATEMENTS: Normal sinus rhythm Normal ECG Compared to ECG 07/11/2022 22:19:14 No significant changes Electronically Signed On 07-17-22 14:17:13 CDT by Isacc Gagnon
== END 2022-07-16 07:35 | disposition short-term general hospital (02) ==
LOC: ER 01:49
DX: I82.491 Acute embolism and thrombosis of other specified deep vein of right lower extremity (principal); L03.115 Cellulitis of right lower limb; L03.125 Acute lymphangitis of right lower limb; M79.605 Pain in left leg; D64.9 Anemia, unspecified; F31.9 Bipolar disorder, unspecified
CPT/HCPCS: 96365; 96361; 93005; 87040 ×2; 85025; 80048; 36415; 83735; 85610; 80076; 83605; 84484; 83880; 71275; 74177; 71045; 93926; 93970; 96375; 99285; Q9967; J2270 ×2; J2405 ×2; J7030; J0690

== ENCOUNTER 2022-07-19 12:23 | Emergency (ER) | payer OTHER ==
--- NOTE | 2022-07-19 13:03 | ER ---
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 Coronavirus screen: At this time, the client does not indicate any symptoms associated with coronavirus-19. Ebola Screen: No symptoms or risks identified at this time. Risk Assessment: Do you want to hurt yourself or someone else? Patient reports no desire to harm self or others. Onset of symptoms is unknown. 12:34 Method Of Arrival: EMS: [facility] jl7 12:34 Acuity: ARI 4 jl7 Triage Assessment: 12:34 General: Appears in no apparent distress. uncomfortable, unkempt, Behavior is jl7 cooperative. Historical: - Allergies: 12:34 PENICILLINS (rash); jl7 - Home Meds: 12:34 Eliquis 5 mg Oral tablet every 12 hours [Active]; jl7 - PMHx: 12:34 Anxiety; Bipolar disorder; Depression; DVT; FACTOR 5; Schizophrenia; jl7 - Immunization history:: Adult Immunizations unknown. - Social history:: Smoking status: Patient reports use of chewing tobacco. Vital Signs: 12:38 aa5 12:38 Pt refused VS, pt states "I do not want vital signs taken" aa5 ED Course: 12:34 Patient arrived in ED. jl7 12:36 Triage completed. jl7 12:44 Isaias Fuentes MD is Attending Physician. sharon Administered Medications: No medications were administered Outcome: 13:02 Patient left the ED. jl7 Signatures: Isaias Fuentes MD MD cha Calderon, Audri, RN RN aa5 Anette Day RN RN jl7
--- OUTSIDE RECORDS SUMMARY | 2022-07-19 13:38 | XMS REPORT | Continuity of Care Document ---
:1960 Author Organization [facility] t Address [address] [place] [address] Care Team Providers Name Role Phone SHEY VAN Primary Care Physician Unavailable [id number] Attending Clinician Unavailable IZABELA PHAM Attending Clinician Unavailable IZABELA PHAM Attending Clinician Unavailable LAWRENCE PETERSON Attending Clinician Unavailable LAWRENCE PETERSON Attending Clinician Unavailable ROBINA BECERRIL Attending Clinician Unavailable Elyssa Calderon RN Attending Clinician Unavailable ELLE JARRELL Attending Clinician Unavailable ANA TERRAZAS Attending Clinician Unavailable Ana Terrazas MD Attending Clinician RAMANA CRUZ Attending Clinician Unavailable Ángel Murray MD Attending Clinician Nancy CARTER, Ramana Simon Attending Clinician TRACEY TRINIDAD Attending Clinician Unavailable Hilda Miller MD Attending Clinician Tracey Trinidad DO Attending Clinician Jerrica CARTER, Robina Valdez Attending Clinician Kaden CARTER, Sunny Attending Clinician [phone] Fabienne CARTER, Olga Attending Clinician Kendra CARTER, Laureen Attending Clinician LAUREEN MOORE Attending Clinician Unavailable Doctor Unassigned, [place] Attending Clinician Unavailable ALLAN LYNCH Attending Clinician [...] Unavailable DAWSON CHOUDHURY Attending Clinician Unavailable , [facility] Sleep Lab Bed Attending Clinician Unavailable Susan Manjarrez PA-C Attending Clinician SUSAN MANJARREZ Attending Clinician Unavailable DELROY FARAH Attending Clinician Unavailable Delroy Farah MD Attending Clinician [facility] Sleep Lab Attending Clinician Unavailable Erma Morales RN Attending Clinician Unavailable MAGDALENE MALDONADO Attending Clinician Unavailable Joel PLAN REP, Magdalene Attending Clinician Joeysuma PLAN REP, Lenstevesuma Attending Clinician CARLOS CORBIN Attending Clinician Unavailable Ladonna Bryant DO Attending Clinician MICHAEL GILL S Attending Clinician Unavailable Michael Fulton S Attending Clinician CLEVE_ Attending Clinician Unavailable BENITO LOPEZ Attending Clinician Unavailable Edgard Leo DO Attending Clinician Magali Curtis MD Attending Clinician Ted Lion MD Attending Clinician Allen Maravilla MD Attending Clinician Georgina Duncan MD Attending Clinician SIENNA POLK Attending Clinician Unavailable LADI RIBERA Attending Clinician Unavailable YASMINE BROOKE Attending Clinician Unavailable MD YASMINE BROOKE Attending Clinician Unavailable Pato Hill MD Attending Clinician Surgery, c General Attending Clinician Unavailable Sofia Malone MD Attending Clinician Surgery, [facility] Vascular Attending Clinician Unavailable Ramana Padron MD Attending Clinician RAMANA SHEA M.D., RAMANA Acevedo M.D. Attending Clinician Unavailable Christy Moya Attending Clinician [id number] Admitting Clinician Unavailable IZABELA PHAM Admitting Clinician Unavailable LAWRENCE PETERSON Admitting Clinician Unavailable ELLE JARRELL Admitting Clinician Unavailable RAMANA CRUZ Admitting Clinician Unavailable Ramana Cruz MD Admitting Clinician Hilda MILLER Admitting Clinician Unavailable OLGA ABRAHAM Admitting Clinician Unavailable ALLAN LYNCH Admitting Clinician Unavailable MICHAEL GILL Admitting Clinician Unavailable CARLOS CORBIN Admitting Clinician Unavailable CLEVE_ Admitting Clinician Unavailable Magali Curtis MD Admitting Clinician Perla CARTER, Georgina Key Admitting Clinician [phone] YASMINE BROOKE Admitting Clinician Unavailable MD YASMINE BROOKE Admitting Clinician Unavailable Pato Hill MD Admitting Clinician RAMANA SHEA M.D., RAMANA Acevedo Admitting Clinician Tasha ivey Payers Payer Name Policy Type Policy Number Effective Date Expiration Date S emmanuel [facility] [id number] [place] [id number] 2021 CLASSIC NO PREMIUM 00:00:00 HMO MEDICARE PART A [id number] 2003 00:00:00 [place] [id number] [facility] 00:00:00 WELLCARE MAPS [id number] 2022 00:00:00 WELLCARE VALUE [id number] 2020 00:00:00 Problems Condition Condition Condition Status Onset Resolution Last Treating Co mments Source Name Details Category Date Date Treatment Clinician Date Cellulitis Cellulitis Disease Active U nivers of right of right 5-29 ity of lower lower 00:00: [place] extremity extremity 00 [facility] Acute Acute Disease Active [facility] metabolic metabolic 5-14 [facility] s encephalop encephalop 00:00: Wy dical athy athy 00 Center Toxic Toxic Disease Active [facility] encephalop encephalop 5-14 Alison kes athy athy 00:00: Medical 00 Center Hydronephr Hydronephr Disease Active [facility] osis osis 5-09 [facility] 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 4-14 ity of 00:00: [address] Branch DVT (deep DVT (deep Disease Active Uni vers venous venous 4-14 [place] 00 [facility] Branch Bilateral Bilateral Disease Active Uni vers sciatica sciatica 4-13 ity of 00:00: [place] 00 [facility] Branch Obesity Obesity Disease Active Univers (BMI (BMI 4-13 ity of 30-39.9) 30-39.9) 00:00: [place] [facility] Deep vein Deep vein Disease [...] chronicity chronicity ally from request for surgery [id number] Lipoma of Lipoma of Disease Active Overview: Univers right right 4-12 Formattin ity of lower lower 00:00: g of this [place] extremity extremity 00 note Medi gordon might be Branch different from the original. Added automatic ally from request for surgery [id number] Lipoma of Lipoma of Disease Active Uni vers torso torso 4-06 ity of 00:00: [place] [address] Medical Branch Kamryn Kamryn Disease Active Univers 6-24 ity of 00:00: [place] [address] Medical Branch Rhabdomyol Rhabdomyol Disease Active U nivers ysis ysis 6-21 ity of 00:00: [place] [address] Medical Branch Presence Presence Disease Active Metho di of IVC of IVC [address] filter filter 00:00: Hospita 00 l Acute Acute Disease Active Methodi chest pain chest pain 9-15 st 00:00: Hospita 00 l Behavior Behavior Disease Active Unive rs problem problem 6-13 ity of 00:00: [place] [address] Medical Branch Cellulitis Cellulitis Disease Active U nivers and and 6-13 ity of abscess of abscess of [place] foot foot 00 [place] Alteration Alteration Disease Active U nivers consciousn consciousn 6-13 it y of ess ess 00:00: [place] [address] Medical Branch TESTING TESTING Diagnosis Active 2014-07-28 Memoria FOR DVT FOR DVT 07-22 14:06:00 l Active 00:00: [place] 07/22/2014 00 [facility] 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 2-16 it[place] of disorder, disorder, [place] chronic chronic 00 Medical condition condition Bran ch with acute with acute exacerbati exacerbati on on Hypertensi Hypertens Problem Active 2014-07-25 Memoria ve arisa 07:19:48 l disorder, disorder, Herm britt systemic systemic arterial arterial (disorder) (disorder) Active Problem 07/25/2014 [facility] History of Past Illness Condition Condition Condition Status Onset Resolution Last Treating Co mments Source Name Details Category Date Date Treatment Clinician Date Discharge Problem 2014-07-25 2014-07-25 Memoria Diagnosis: Discharge 07-22 07:19:48 07:19:48 l Chronic Diagnosis: 05:00: Laureen nn back pain Chronic 00 back pain 07/22/2014 07/25/2014 [facility] Discharge Discharge Problem 2014-07-25 2014-07-25 Memoria Diagnosis: Diagnosis: 07-22 07:19:48 07:19:48 l Peripheral Peripheral 05:00: He rmann edema edema 00 07/22/2014 07/25/2014 [facility] Allergies, Adverse Reactions, Alerts Allergy Allergy Status [...] be sent out. Penicill Propensi Active Rash 2022-[address] [facility] ty to 5-09 [facility] [...] Branch Penicill DA Active U Rash 2019-02 [facility] ins 2-21 00:00: 00 No Known DA Active U [...] [facility] Social History Social Habit Start Date Stop Date Quantity Comments Source Gender identity [facility]oroastrianism [facility] Sexual orientation [facility] History SDOH University o f Alcohol Std Drinks [place] [facility] History SDOH University o f Alcohol Binge [place] [facility] Branch History SDOH Social Unive rsity of Connections [facility] Med ical Together Branch History SDOH Social Unive rsity of Connections [facility] History SDOH Social Unive rsity of Connections [place] [facility] Membership Branch History SDOH Social Unive rsity of Connections [place] [facility] Meetings Branch Exposure to 2022-07-01 2022-07-11 [...] Unive rsity of Connections Living 00:00:00 00:00:00 [place] [facility] History SDOH 2022-05-27 2022-05-27 0 University o f Physical Activity 00:00:00 00:00:00 [place] M edical DPW Branch History SDOH 2022-05-27 2022-05-27 0 University o f Physical Activity 00:00:00 00:00:00 [place] M edical MPS Branch History SDOH 2022-05-27 2022-05-27 5 University o f Financial 00:00:00 00:00:00 [place] [facility] History SDOH Food 2022-05-27 2022-05-27 1 Univers ity of Worry 00:00:00 00:00:00 [place] [facility] History SDKY Food 2022-05-27 2022-05-27 1 Univers ity of Scarcity 00:00:00 00:00:00 [place] [facility] History SDKY 2022-05-27 2022-05-27 2 University o f Transport Med 00:00:00 00:00:00 [place] Medic al Branch History SDKY 2022-05-27 2022-05-27 2 University o f Transport Non-Med 00:00:00 00:00:00 [place] M edical Branch History SDKY 2022-05-27 2022-05-27 2 University o f Housing Unable to 00:00:00 00:00:00 [place] M edical Pay Branch History [facility] 2022-05-27 2022-05-27 1 University o f Housing Places 00:00:00 00:00:00 [place] [facility] gordon Lived Branch History [facility] 2022-05-27 2022-05-27 2 University o f Housing Homeless 00:00:00 00:00:00 [facility] dical Last Year Branch Education 2022-05-26 2022-05-26 21 University of 00:00:00 00:00:00 [facility] Tobacco use and 2022-05-03 2022-05-03 User of Universit y of exposure 00:00:00 00:00:00 smokeless [facility] Tobacco Comment 2021-09-22 2021-09-22 dipper Universit y of 00:00:00 00:00:00 [facility] History of Social 2019-10-31 2019-10-[address] function 00:00:00 00:00:00 Hospital Alcohol intake 2019-10-29 2019-10-29 Lifetime Zoroastrianism 00:00:00 00:00:00 non-drinker Hospital (finding) History of tobacco 2014-08-25 Snuff User Univer sity of use 00:00:00 [facility] Sex Ass[birth year] At [birth year] Z[facility]astrianism 00:00:00 00:00:00 Hospital Smoking Status Start Date Stop Date Source Social History [place] [facility] Medications Ordered Filled Start Stop Current Ordering Indication Dosage Frequency Signature Comments Components Source Medication Medication Date Date Medication? Clinician (SIG) Name Name clindamycin 2022- No 900mg 900 mg, IV Univers in 5 % 07-11 Piggyback, ity of dextrose 10:45: 11:47 ONCE, 1 [place] (CLEOCIN) 00 :00 dose, On Medica l 900 mg/50 Mon [place] mL IV 07/11/22 at piggyback 0545, RTU 900 mg Administer over 30 Minutes, 50 mL
R chelsea for Anti-Infec tive: Empiric Therapy for Suspected Infection< br>Empiric Therapy Site: Skin / Soft tissue
Duration of therapy: 5 days
Re stricted use approved by: ED PROVIDER cefTRIAXone 2022- No 1000mg 1,000 mg, Univers (ROCEPHIN) 07-05 IV ity of 1,000 mg in 14:15: 14:53 [place], [place] NaCl 0.9% 00 :00 ONCE, 1 Medical (NS) 100 mL dose, On Bran ch MINI-BAG [facility] 07/05/22 at 0915, Administer over 30 Minutes, 100 mL
Reas on for Anti-Infec tive: Empiric Therapy for Suspected Infection< br>Empiric Therapy Site: Skin / Soft tissue
Duration of therapy: 72 hours FENTanyl PF 2022- No 50ug 50 mcg, Un mary (SUBLIMAZE 07-05 Slow IV ity o f (PF)) 12:15: 11:46 [place], [place] injection 00 :00 ONCE, 1 Medical 50 mcg dose, On Branch e 07/05/22 at 0715, Routine OLANZapine 2022-0 Yes [id number] 5mg Take 1 Univers 5 mg tablet 5-23 tablet by ity of 00:00: mouth in [place] 00 the Medical morning. [place] OLANZapine 2022-0 Yes [id number] 5mg Take 1 Univers 5 mg tablet 5-23 tablet by ity of 00:00: mouth in [place] 00 the Medical morning. [place] OLANZapine 2022-0 Yes [id number] 5mg Take 1 Univers 5 mg tablet 5-23 tablet by ity of 00:00: mouth in [place] 00 the Medical morning. [place] OLANZapine 2022-0 Yes [id number] 5mg Take 1 Univers 5 mg tablet 5-23 tablet by ity of 00:00: mouth in [place] 00 the Medical morning. Branch OLANZapine 3-0 Yes [id number] 5mg Take 1 Univers 5 mg tablet 5-23 tablet by ity of 00:00: mouth in [place] 00 the Medical morning. Branch OLANZapine 3-0 Yes [id number] 5mg Take 1 Univers 5 mg tablet 5-23 tablet by ity of 00:00: mouth in [place] 00 the Medical morning. Branch OLANZapine 2022-0 Yes [id number] 5mg Take 1 Univers 5 mg tablet 5-23 tablet by ity of 00:00: mouth in [place] 00 the Medical morning. Branch furosemide 2022-0 2022- Yes [id number] 40mg Take 1 Univers 40 mg 5-23 06-07 tablet by ity of tablet 00:00: 04:59 mouth [place] 00 :00 every Medical morning Branch and evening for 14 days. furosemide 2022-0 2022- Yes [id number] 40mg Take 1 Univers 40 mg 5-23 06-07 tablet by ity of tablet 00:00: 04:59 mouth [place] 00 :00 every Medical morning Branch and evening for 14 days. furosemide 2022-0 2022- Yes [id number] 40mg Take 1 Univers 40 mg 5-23 06-07 tablet by ity of tablet 00:00: 04:59 mouth [place] 00 :00 every Medical morning Branch and evening for 14 days. furosemide 2022-0 2022- Yes [id number] 40mg Take 1 Univers 40 mg 5-23 06-07 tablet by ity of tablet 00:00: 04:59 mouth [place] 00 :00 every Medical morning Branch and evening for 14 days. furosemide 2022-0 2022- Yes [id number] 40mg Take 1 Univers 40 mg 5-23 06-07 tablet by ity of tablet 00:00: 04:59 mouth [place] 00 :00 every Medical morning Branch and evening for 14 days. furosemide 2022-0 2022- Yes [id number] 40mg Take 1 Univers 40 mg 5-23 06-07 tablet by ity of tablet 00:00: 04:59 mouth [place] 00 :00 every Medical morning Branch and evening for 14 days. furosemide 2022-0 2022- Yes [id number] 40mg Take 1 Univers 40 mg 5-23 06-07 tablet by ity of tablet 00:00: 04:59 mouth [place] 00 :00 every Medical morning Branch and evening for 14 days. cephALEXin 2022-0 2022- Yes [id number] 1000mg Take 2 Univers 500 mg 07-05 [id number] capsules ity of capsule 00:00: 04:59 by mouth [place] 00 :00 in the [facility] morning Branch and 2 capsules in the evening. Do all this for 7 days. cephALEXin 2022-0 2022- Yes [id number] 1000mg Take 2 Univers 500 mg 07-05 [id number] capsules ity of capsule 00:00: 04:59 by mouth [place] 00 :[address] [facility] and 2 capsules in the evening. Do all this for 7 days. cephALEXin 2022-0 2022- Yes [id number] 1000mg Take 2 Univers 500 mg 07-05 [id number] capsules ity of capsule 00:00: 04:59 by mouth [place] 00 :00 in the [facility] morning Branch and 2 capsules in the evening. Do all this for 7 days. cephALEXin 2022-0 2022- Yes [id number] 1000mg Take 2 Univers 500 mg 07-05 [id number] capsules ity of capsule 00:00: 04:59 by mouth [place] 00 :[address] [facility] and 2 capsules in the evening. Do all this for 7 days. cephALEXin 2022-0 2022- Yes [id number] 1000mg Take 2 Univers 500 mg 07-05 [id number] capsules ity of capsule 00:00: 04:59 by mouth [place] 00 :[address] [facility] and 2 capsules in the evening. Do all this for 7 days. apixaban 2022-0 Yes [id number] 5mg Take 1 Unive rs mg tablet 5-22 tablet by ity o f 00:00: mouth in [address] and 1 tablet in the evening. Indication s: history of deep vein thrombosis apixaban 5 2022-0 Yes [id number] 5mg Take 1 Unive rs mg tablet 5-22 tablet by ity o f 00:00: mouth in [address] and 1 tablet in the evening. Indication s: history of deep vein thrombosis apixaban 5 2022-0 Yes [id number] 5mg Take 1 Unive rs mg tablet 5-22 tablet by ity o f 00:00: mouth in [address] and 1 tablet in the evening. Indication s: history of deep vein thrombosis apixaban 5 2022-0 Yes [id number] 5mg Take 1 Unive rs mg tablet 5-22 tablet by ity o f 00:00: mouth in [place] 00 the [facility] morning Branch and 1 tablet in the evening. Indication s: history of deep vein thrombosis apixaban 5 2022-0 Yes 5523 5mg Take 1 Unive rs mg tablet 5-22 tablet by ity o f 00:00: mouth in [place] 00 the Medical morning Branch and 1 tablet in the evening. Indication s: history of deep vein thrombosis apixaban 5 2022-0 Yes 5523 5mg Take 1 Unive rs mg tablet 5-22 tablet by ity o f 00:00: mouth in [place] [address] the Medical morning Branch and 1 tablet in the evening. Indication s: history of deep vein thrombosis apixaban 5 2022-0 Yes 5523 5mg Take 1 Unive rs mg tablet 5-22 tablet by ity o f 00:00: mouth in [place] [address] the [facility] morning Branch and 1 tablet in the evening. Indication s: history of deep vein thrombosis apixaban 5 2022-0 Yes 5523 5mg Take 1 Unive rs mg tablet 5-22 tablet by ity o f 00:00: mouth in [place] [address] the [facility] morning Branch and 1 tablet in the evening. Indication s: history of deep vein thrombosis apixaban 5 2022-0 Yes 5523 5mg Take 1 Unive rs mg tablet 5-22 tablet by ity o f 00:00: mouth in [place] [address] the [facility] morning Branch and 1 tablet in the evening. Indication s: history of deep vein thrombosis apixaban 5 3-0 Yes 5523 5mg Take 1 Unive rs mg tablet 5-22 tablet by ity o f 00:00: mouth in [place] [address] the [facility] morning [place] and 1 tablet in the evening. Indication [...] mouth Center nightly. gabapentin 2023-0 Yes 300mg [id number] Take [address] (NEURONTIN) 5-11 [id number] capsule [facility] 300 MG 18:24: 3D (300 [...] mouth Center nightly. gabapentin 2023-0 Yes 300mg Q.[id number] Take [address] (NEURONTIN) 5-11 [id number] capsule [facility] 300 MG 18:24: 3D (300 [...] s mg tablet 06-13 ity of 00:00: [place] [facility] traMADoL 50 2022-0 Yes Univer [...] s mg tablet 06-13 ity of 00:00: [place] [facility] traMADoL 50 2022-0 Yes Univer s mg tablet 06-13 ity of 00:00: Medical Branch traMADoL 50 2022-0 Yes Univer s mg tablet 06-13 ity of 00:00: Medical Branch traMADoL 50 2022-0 Yes Univer s mg tablet 06-13 ity of 00:00: Medical Branch traMADoL 50 2022-0 Yes Univer s mg tablet 06-13 ity of 00:00: [place] [facility] traMADoL 50 2022-0 Yes Univer s mg tablet 06-13 ity of 00:00: [place] [facility] traMADoL 50 2022-0 Yes Univer s mg tablet 06-13 ity of 00:00: [place] [facility] tc 2022-0 2022- No [id number] 25mCi 25 Univer s 99m-medrona 06-07 04-25 millicurie i ty of te 13:50: 13:50 , [place] (DRAXIMAGE 00 :00 Intravenou Med ical MDP-25) s, ONCE, 1 Branch injection dose, On e millicurie 06/07/22 at 0900, Routine apixaban 2022- Yes [id number] 5mg Take 1 Univ ers mg tablet 06-07-26 tablet by ity of 00:00: 04:59 mouth in [place] 00 :00 the [facility] Branch and 1 tablet in the evening. Do all this for 30 days. Indication s: history of deep vein thrombosis apixaban 2022- Yes 5523 5mg Take 1 Univ ers mg tablet 06-07-26 tablet by ity of 00:00: 04:59 mouth in [place] 00 :00 the [facility] morning Branch and 1 tablet in the evening. Do all this for 30 days. Indication s: history of deep vein thrombosis apixaban 2022- Yes 5523 5mg Take 1 Univ ers mg tablet - 05-26 tablet by ity of 00:00: 04:59 mouth in [place] 00 :00 the [facility] morning Branch and 1 tablet in [...] by ity of 00:00: 04:59 mouth in [place] 00 :00 the Medical morning Branch and [...] of deep vein thrombosis apixaban 5 2022-2022- No 5523 5mg Take 1 Univ ers mg tablet -07 07-22 tablet by ity of 00:00: 00:00 mouth in [place] 00 :00 the Medical morning Branch and 1 tablet in the evening. Do all this for 30 days. Indication s: history of deep vein thrombosis apixaban 5 2022-0 2022- No 5523 5mg Take 1 Univ ers mg tablet -07 07- tablet by ity of 00:00: 00:00 mouth in [place] 00 :00 the Medical morning Branch and 1 tablet in the evening. Do all this for 30 days. Indication s: history of deep vein thrombosis acetaminoph 2022- Yes [id number] 500mg Take 1 Univers en 500 mg 4-25 05-06 tablet by ity of tablet 00:00: 04:59 mouth [place] 00 :00 every 6 Medical (six) Branch hours as needed for Pain for up to 10 days. acetaminoph 2022- Yes [id number] 500mg Take 1 Univers en 500 mg 4-25 05-06 tablet by ity of tablet 00:00: 04:59 mouth [place] 00 :00 every 6 Medical (six) Branch hours as needed for Pain for up to 10 days. acetaminoph 2022- Yes [id number] 500mg Take 1 Univers en 500 mg 4-25 05-06 tablet by ity of tablet 00:00: 04:59 mouth [place] 00 :00 every 6 Medical (six) Branch hours as needed for Pain for up to 10 days. acetaminoph 2022- Yes [id number] 500mg Take 1 Univers en 500 mg 4-25 05-06 tablet by ity of tablet 00:00: 04:59 mouth [place] 00 :00 every 6 Medical (six) Branch hours as needed for Pain for up to 10 days. acetaminoph 2022- Yes [id number] 500mg Take 1 Univers en 500 mg 4-25 05-06 tablet by ity of tablet 00:00: 04:59 mouth [place] 00 :00 every 6 Medical (six) Branch hours as needed for Pain for up to 10 days. acetaminoph 2022- Yes [id number] 500mg Take 1 Univers en 500 mg 4-25 05-06 tablet by ity of tablet 00:00: 04:59 mouth [place] 00 :00 every 6 Medical (six) Branch hours as needed for Pain for up to 10 days. acetaminoph 2022- Yes [id number] 500mg Take 1 Univers en 500 mg 4-25 05-06 tablet by ity of tablet 00:00: 04:59 mouth [place] 00 :00 every 6 Medical (six) Branch hours as needed for Pain for up to 10 days. docusate 2022- Yes [id number] 100mg Take 1 Univers 100 mg 4-25 [...] Indication s: acute pain polyethylen 2022- Yes [id number] 17g Take 1 Univers e glycol 4-25 05-03 Packet by ity o f 3350 17 00:00: 04:59 mouth [place] gram powder 00 :00 every 24 Medi gordon (twenty-fo Branch ur) hours as needed for Constipati on for up to 7 days. docusate 2022-0 2022- Yes [id number] 100mg Take 1 Univers 100 mg 4-25 05-03 capsule by ity of capsule 00:00: 04:59 mouth in [place] 00 :00 the [facility] Branch for 7 days. HYDROcodone 2022- Yes [id number] 1{tbl} Take 1 U nivers -acetaminop 4-25 05-03 tablet by it y of hen 10-325 00:00: 04:59 mouth [place] mg tablet 00 :00 every 6 Medical (six) Branch hours as needed for Pain (scale 7-10) or Pain (scale 4-6) for up to 7 days. Indication s: acute pain polyethylen 2022-2022- Yes [id number] 17g Take 1 Univers e glycol 4-25 05-03 Packet by ity o f 3350 17 00:00: 04:59 mouth [place] gram powder 00 :00 every 24 Medi gordon ([facility] Branch ur) hours as needed for Constipati on for up to 7 days. docusate 2022- Yes [id number] 100mg Take 1 Univers 100 mg 4-25 05-03 capsule by ity of capsule 00:00: 04:59 mouth in [place] 00 :00 the [facility] Branch for 7 days. HYDROcodone 2022- Yes [id number] 1{tbl} Take 1 U nivers -acetaminop 4-25 05-03 tablet by it y of hen 10-325 00:00: 04:59 mouth [place] mg tablet 00 :00 every 6 Medical (six) Branch hours as needed for Pain (scale 7-10) or Pain (scale 4-6) for up to 7 days. Indication s: acute pain polyethylen 2022-0 2022- Yes [id number] 17g Take 1 Univers e glycol 4-25 05-03 Packet by ity o f 3350 17 00:00: 04:59 mouth [place] gram powder 00 :00 every 24 Medi gordon ([facility] Branch ur) hours as needed for Constipati on for up to 7 days. docusate 2022-0 2022- Yes [id number] 100mg Take 1 Univers 100 mg 4-25 05-03 capsule by ity of capsule 00:00: 04:59 mouth in [place] 00 :00 the [facility] Branch for 7 days. HYDROcodone 2022- Yes [id number] 1{tbl} Take 1 U nivers -acetaminop 06-07- tablet by it y of hen [id number] 00:00: 04:59 mouth [place] mg tablet 00 :00 every 6 Medical (six) Branch hours as needed for Pain (scale 7-10) or Pain (scale 4-6) for up to 7 days. Indication s: acute pain polyethylen 2022- Yes [id number] 17g Take 1 Univers e glycol 06-07 Packet by ity o f 3350 17 00:00: 04:59 mouth [place] gram powder 00 :00 every 24 Medi gordon (twenty-fo Branch ur) hours as needed for Constipati on for up to 7 days. benzocaine- Yes 1{lozen 1 Lozenge, Univers menthoL 4-23 ge} Oral, ity of (CEPACOL 05:03: Q4HPRN, [place] SORE THROAT 14 Starting Medi gordon (CLAUDIA-MEN)) [facility] at [place] 0003, Until Discontinu ed, Routine, Sore throat benzocaine- 0 Yes 1{lozen 1 [place], Univers menthoL 4-23 ge} Oral, ity of (CEPACOL 05:03: Q4HPRN, [place] SORE THROAT 14 Starting Medi gordon (CLAUDIA-MEN)) on [place] [address] 06/05/22 at Loz[place] 0003, Until Discontinu ed, Routine, Sore throat iopamidol 2022- No [id number] 80mL 80 mL, Univers (ISOVUE 06-05 Intravenou ity o f 370-500 mL) 01:36: 01:20 s, ONCE, 1 [place] injection 00 :00 dose, On Medica l 80 mL [facility] 06/04/22 at 2044, Routine apixaban 2022- Yes 10mg [Order 1 Univ ers (ELIQUIS) 06-05 Start] ity of tablet 10 01:00: 00:59 Name: [place] mg 00 :00 apixaban Medical (ELIQUIS) Branch tablet 10 mg Signed Summary: 10 mg, Oral, BID, 14 doses, First dose on [facility] 06/04/22 at 1999, Last dose on [facility] 06/11/22 at 0800, Routine
Indicatio ns: DVT/PE [Order 1 End] [Order 2 Start] Name: apixaban (ELIQUIS) tablet 5 mg Signed Summary: 5 mg, Oral, BID, First dose on [facility] 06/11/22 at 1999, Until Discontinu ed, Routine
Indicatio ns: DVT/PE [Order 2 End] apixaban 2022- Yes 10mg [Order 1 Univ ers (ELIQUIS) 06-05 Start] ity of tablet 10 01:00: 00:59 Name: [place] mg 00 :00 apixaban Medical (ELIQUIS) [place] tablet 10 mg Signed Summary: 10 mg, Oral, BID, 14 doses, First dose on [facility] 06/04/22 at 1999, Last dose on [facility] 06/11/22 at 0800, Routine
Indicatio ns: DVT/PE [Order 1 End] [Order 2 Start] Name: apixaban (ELIQUIS) tablet 5 mg Signed Summary: 5 mg, Oral, BID, First dose on [facility] 06/11/22 at 1999, Until Discontinu ed, Routine
Indicatio ns: DVT/PE [Order 2 End] bisacodyL Yes 10mg 10 mg, Univer s (DULCOLAX) 06-04 Rectal, ity of suppository 15:25: QDAILYPRN, [place] 10 mg 51 Starting Medical on [facility] 06/04/22 at 1025, Until Discontinu ed, Routine, Constipati on bisacodyL Yes 10mg 10 mg, Univer s (DULCOLAX) 06-04 Rectal, ity of suppository 15:25: QDAILYPRN, [place] 10 mg 51 Starting Medical on [facility] 06/04/22 at 1025, Until Discontinu ed, [...] 1300, Until Discontinu ed, Routine, PACU heparin 0 2022- No PRN, Univers 10,000 06-03 Starting ity of units in NS 14:25: 07:25 on Mon [place] 1000 mL for 00 :55 06/03/22 at [facility] 0925, Branch Intra-op heparin 0 2022- No 0U/h 0-3,050 Univer s 25,000 [...] INITIAL INFUSION RATE.&nbsp ; _ &nb sp;FOR [place], [facility], AND [facility] ONLY &nbs p; - aPTT [...] Oral, ity of OIL EXTRA 14:00: DAILY, [place] HEAVY) oral 00 First dose Me dical liquid 30 on [place] Branch mL 06/02/22 at 0900, Until Discontinu ed, Routine mineral oil Yes 30mL 30 mL, Univ ers (MINERAL 4-20 Oral, ity of OIL EXTRA 14:00: DAILY, [place] HEAVY) oral 00 First dose Me dical liquid 30 on [place] Branch mL 06/02/22 at 0900, Until Discontinu ed, Routine apixaban 0 2022- Yes 10mg [Order 1 Univ ers (ELIQUIS) 05-31 0425 Start] ity of tablet 10 15:30: 12:59 [...] s mg 00 First dose Medical on [facility] 05/31/22 at 0900, Until Discontinu ed, Routine docusate 2022-0 Yes 100mg 100 mg, Unive rs (COLACE) 4-18 Oral, ity of capsule 100 14:00: DAILY, [place] 00 First dose Medical on [facility] 05/31/22 at 0900, Until Discontinu ed, Routine docusate 2022-0 Yes 100mg 100 mg, Unive rs (COLACE) 4-18 Oral, ity of capsule 100 14:00: DAILY, [place] mg 00 First dose Medical on [facility] 05/31/22 at 0900, Until Discontinu ed, Routine docusate 2022-0 Yes 100mg 100 mg, Unive rs (COLACE) 4-18 Oral, ity of capsule 100 14:00: DAILY, [place] mg 00 First dose Medical on [facility] 05/31/22 at 0900, Until Discontinu ed, Routine [...] INITIAL INFUSION RATE.&nbsp ; _ &nb sp;FOR [facility], AND [facility] ONLY &nbs p; - aPTT [...] 300 units/hr&n bsp; - aPTT 40-49:&nbs p; Brain brigid 3000 units, increase rate 200 units/hr&n [...] of ) injection 02:47: on Mon05/30/[address] Until Discontinu ed, Routine, Intra-op iopamidol 2022-0 Yes PRN, Univers (ISOVUE-300 4-18 Starting ity of ) injection 02:47: on Mon05/30/[address] Until Discontinu ed, Routine, Intra-op iopamidol 2022-0 Yes PRN, Univers (ISOVUE-300 4-18 Starting ity of ) injection 02:47: on Mon05/30/[address] Until Discontinu ed, Routine, Intra-op heparin 2022-0 Yes PRN, Univers 10,000 4-18 Starting ity of units in NS 01:26: on [place] 1000 mL for 05/30/22 at Me dical vascular 2025, Branch Intra-op heparin 2022-0 [...] Yes .5mg/h 0.5 mg/hr U nivers (CATHFLO 17 (12.5 ity of ACTIVASE) 14:00: mL/hr), IV [...] all infusion sites combined.< br> alteplase 2022-0 202- No .5mg/h 0.5 mg/hr Univers (CATHFLO 05-3018 [...] all infusion sites combined.< br> alteplase 2022-0 2022- No .5mg/h 0.5 mg/hr Univers (CATHFLO 05-3018 [...] from all infusion sites combined.< br> KCL 3-0 202- No 20meq 20 mEq, Univers (KLOR-CON 05-30 Oral, ity of M20) tablet 11:15: 11:12 ONCE, 1 [place] 20 mEq 00 :00 dose, On Mon05/30/22 at 0615, Routine heparin 2022-0 2022- No [...] INITIAL INFUSION RATE.&nbsp ; _ &nb sp;FOR [facility], [facility], AND [facility] ONLY &nbs p; - aPTT < [...] mg 53 Q4HPRN, Medical Starting Branch on [place] 05/29/22 at 2231, Until Discontinu ed, Routine, SBP > 160 and HR > 70 labetaloL 2023-0 Yes 10mg 10 mg, Univer s (NORMODYNE) 4-17 Slow IV ity o f injection 03:31: Push, [place] 10 mg 53 Q4HPRN, [facility] Starting Branch on [place] 05/29/22 at 2231, Until Discontinu ed, Routine, SBP > 160 and HR > 70 traMADoL 2022-0 Yes 50mg 50 mg, Univers (ULTRAM) 4-17 Oral, Q6H, ity o f tablet 50 01:45: First dose [place] mg 00 on [facility] 05/29/22 at Branch 2044, Until Discontinu ed, Routine traMADoL 3-0 Yes 50mg 50 mg, Univers (ULTRAM) 4-17 Oral, Q6H, ity o f tablet 50 01:45: First dose [place] mg 00 on [facility] 05/29/22 at Branch 2044, Until Discontinu ed, Routine traMADoL 3-0 Yes 50mg 50 mg, Univers (ULTRAM) 4-17 Oral, Q6H, ity o f tablet 50 01:45: First dose [place] mg 00 on [facility] 05/29/22 at Branch 2044, Until Discontinu ed, Routine traMADoL 3-0 Yes 50mg 50 mg, Univers (ULTRAM) 4-17 Oral, Q6H, ity o f tablet 50 01:45: First dose [place] mg 00 on [facility] 05/29/22 at Branch 2044, Until Discontinu ed, Routine HYDROcodone 2022-0 Yes 1{tbl} 1 tablet, Univers -acetaminop 4-17 Oral, ity of hen (NORCO) 01:37: Q6HPRN, [place] as 10-325 mg 54 Starting Medica l tablet 1 on [facility] tablet 05/29/22 at 2036, Until Discontinu ed, Routine, Pain (scale 7-10), Pain (scale 4-6) HYDROcodone 3-0 Yes 1{tbl} 1 tablet, Univers -acetaminop 4-17 [...] 2022-0 2023- No 300U/h 300 Univers 25,000 16 04-17 Units/hr ity of Units/250 17:45: 06:05 [...] as 5) 5-325 mg 06 :07 Starting [facility] tablet 1 on [place] Branch tablet 05/29/22 at 1203, Until 05/29/22 at 2038, Routine, Pain (scale 4-6), Pain (scale 7-10) heparin 2022-0 2022- No 300U/h 300 Univers 25,000 05-29-17 Units/hr ity of Units/250 15:46: 14:20 (3 mL/hr), [place] mL 48 :43 IV Medical (Premixed Infusion, Branc h Bag) in TITRATE, 0.45 % NS Parameters in Admin. Instr., Starting on 05/29/22 at 1046
30 0 units/hr, non-titrat able
iodixanoL 2022-0 Yes PRN, Univers (VISIPAQUE 4-16 Starting ity o f 270-150 mL) 13:50: on [place] injection 00 05/29/22 at [facility] gordon 0850, Branch Until Discontinu ed, Routine, Intra-op iodixanoL 2022-0 Yes PRN, Univers (VISIPAQUE 4-16 Starting ity o f 270-150 mL) 13:50: [place] 00 05/29/22 at [facility] 0850, Branch Until Discontinu ed, Routine, Intra-op iodixanoL 2023-0 Yes PRN, Univers (VISIPAQUE 4-16 Starting ity o f 270-150 mL) 13:50: [place] injection 05/29/22 at [facility] 0850, [place] Until Discontinu ed, Routine, Intra-op iodixanoL 3-0 Yes PRN, Univers (VISIPAQUE 4-16 Starting ity o f 270-150 mL) 13:50: [place] injection 05/29/22 at [facility] 0850, [place] Until Discontinu ed, Routine, Intra-op lidocaine 3-0 Yes PRN, Univers 1% (PF) 4-16 Starting ity of (XYLOCAINE) 13:00: [place] 05/29/22 at [facility] [address] Until Discontinu ed, Routine, Intra-op lidocaine 3-0 Yes PRN, Univers 1% (PF) 4-16 Starting ity of (XYLOCAINE) 13:00: on [place] injection 05/29/22 at [facility] 0800, [place] Until Discontinu ed, Routine, Intra-op lidocaine 3-0 Yes PRN, Univers 1% (PF) 4-16 Starting ity of (XYLOCAINE) 13:00: on [place] injection 05/29/22 at [facility] 0800, [place] Until Discontinu ed, Routine, Intra-op lidocaine 3-0 Yes PRN, Univers 1% (PF) 4-16 Starting ity of (XYLOCAINE) 13:00: on Sun [place] injection 05/29/22 at [facility] 0800, [place] Until Discontinu ed, Routine, Intra-op alteplase 2022-0 202- No 1mg/h 1 mg/hr Uni vers [...] from all infusion sites combined.< br> alteplase 2022022- No 1mg/h 1 mg/hr Uni vers (CATHFLO [...] mg 00 :00 dose, On Medical Sat [place] 05/28/22 at 1915, Routine HEPARIN 2022- No [...] e, Dosing and Testing: &nbs p;FOR [place], [facility], AND [facility] ONLY &nbs p; [...] ity of unit/mL, 10 16:23: , Starting [place] mL vial) 36 on [facility] Medical for 05/28/22 at [place] Rebolusing 1123, Until Discontinu ed, Routine
Dosing based on aPPT testing parameters (refer to continuous heparin drip order).
sulfur 2022- No [id number] 5mL 5 mL, Univ ers hexafluorid 05-27 Intravenou i ty of e microsphr 18:30: 18:30 s, ONCE, 1 [place] (LUMASON) 00 :00 dose, On Medica l injection 5 Mon [facility] 05/27/22 at 1330, Routine
[employer] member approving Restricted medication : HAROON MOYER enoxaparin 2022- No 1mg/kg 90 mg Uni vers (LOVENOX) 05-27 (rounded ity o f injection 14:07: 16:25 [place] 86.5 [place] 90 mg 50 :10 mg = 1 Medical mg/kg Branch ?86.5 kg), [facility], First dose on Mon05/27/22 at 2000, [...] First dose [place] mg 00 :21 on Fri Medical 05/27/22 at Branch 0800, Until Discontinu ed, Routine iopamidol 2022- No [id number] 100mL 100 mL, Univers (ISOVUE 05-27 [id number] Intravenou ity of 370-500 mL) 12:15: 12:15 [...] 2022- No 1{tbl} 1 tablet, Univers -acetaminop 4-14 04-16 Oral, ity of hen (NORCO 04:44: 17:03 Q6HPRN, [place] 5) 5-325 mg 15 :15 Starting Medi gordon tablet 1 on [facility] tablet 05/26/22 at 2344, Until 05/29/22 at 1203, Routine, Pain (scale 4-6) ondansetron 3-0 Yes 4mg 4 mg, Slow Univers (ZOFRAN 4-14 IV Push, ity of (PF)) 01:30: Q6HPRN, [place] injection 4 58 Starting Medi gordon mg on [facility] Branch 05/26/22 at 2030, Until Discontinu ed, Routine, Nausea and Vomiting (N/V) ondansetron 2023-0 Yes 4mg 4 mg, Slow Univers (ZOFRAN 4-14 IV Push, ity of (PF)) 01:30: Q6HPRN, [place] injection 4 58 Starting Medi gordon mg on [facility] Branch 05/26/22 at 2030, Until Discontinu ed, Routine, Nausea and Vomiting (N/V) ondansetron 2023-0 Yes 4mg 4 mg, Slow Univers (ZOFRAN 4-14 IV Push, ity of (PF)) 01:30: Q6HPRN, [place] injection 4 58 Starting Medi gordon mg on [facility] Branch 05/26/22 at 2030, Until Discontinu ed, Routine, Nausea and Vomiting (N/V) ondansetron 2023-0 Yes 4mg 4 mg, Slow Univers (ZOFRAN 4-14 IV Push, ity of (PF)) 01:30: Q6HPRN, [place] injection 4 58 Starting Medi gordon mg on [facility] Branch 05/26/22 at 2030, Until Discontinu ed, Routine, Nausea and Vomiting (N/V) morpHINE (2 2022-2022- No 4mg 4 mg, Slow Univers mg/mL) 05-27 IV Push, ity of injection 4 01:30: 01:29 Q4HPRN, [place] mg 55 :55 Starting Medical on [facility] Branch 05/26/22 at 2030, Until 05/27/22 [...] [place] mg 00 :00 dose, On [facility] 05/26/22 at 1845, Routine gabapentin 2022- No 300mg 300 mg, Un mary (NEURONTIN) 05-26 Oral, ity of capsule 300 23:00: 23:10 ONCE, 1 [place] mg 00 :00 dose, On [facility] 05/26/22 at 1800, MICHELLE methylpredn No 125mg 125 mg, U nivers isolone sod 05-26 Slow IV ity of succ 22:15: 21:28 Push, [place] (SOLU-MEDRO 00 :00 ONCE, 1 Medic al L) dose, On Branch injection [place] 125 mg 05/26/22 at 1715, MICHELLE furosemide No 40mg 40 mg, IV U nivers (LASIX) 05-26 Push, ity of injection 21:15: 21:19 ONCE, 1 [place] 40 mg 00 :00 dose, On [facility] 05/26/22 at 1615, MICHELLE ketorolac No 30mg 30 mg, Unive rs (TORADOL) 05-23 Intramuscu ity of injection 23:00: 22:35 [place], ONCE, [place] 30 mg 00 :00 1 dose, On [facility] 05/23/22 at 1800, Routine diazePAM No 2.5mg 2.5 mg, Univ ers (VALIUM) [...] :00 dose, On Medica l tablet 1 [facility] tablet 05/23/22 at 0645, MICHELLE gabapentin 2022-0 202- No 600mg 600 mg, Un mary (NEURONTIN) 05-23 Oral, ity of capsule 600 09:00: 09:09 ONCE, 1 [place] mg 00 :00 dose, On [facility] Branch 05/23/22 at 0400, MICHELLE dexamethaso 2022-0 2022- No 10mg 10 mg, Uni vers ne sod phos 05-23 Intramuscu i ty of PF 09:00: 09:07 lar, ONCE, [place] injection 00 :00 1 dose, On Medi gordon 10 mg [facility] 05/23/22 at 0400, 1 mL gabapentin 2023-0 Yes [id number] 300mg Take 1 Univers 300 mg 4-10 capsule by ity of capsule 00:00: mouth in [place] [address] [facility] and 1 capsule at noon and 1 capsule in the evening. gabapentin 2023-0 Yes [id number] 300mg Take 1 Univers 300 mg 4-10 capsule by ity of capsule 00:00: mouth in [place] [address] [facility] and 1 capsule at noon and 1 capsule in the evening. gabapentin 2023-0 Yes [id number] 300mg Take 1 Univers 300 mg 4-10 capsule by ity of capsule 00:00: mouth in [place] [address] [facility] and 1 capsule at noon and 1 capsule in the evening. ketorolac 2023-0 Yes [id number] 10mg Take 1 U nivers 10 mg 4-10 tablet by ity of tablet 00:00: mouth [place] [address] every 6 Medical (six) Branch hours as needed for Pain (scale 7-10). gabapentin 2023-0 Yes [id number] 300mg Take 1 Univers 300 mg 4-10 capsule by ity of capsule 00:00: mouth in [place] [address] the [facility] morning [place] and 1 capsule at noon and 1 capsule in the evening. ketorolac 2023-0 Yes [id number] 10mg Take 1 U nivers 10 mg 4-10 tablet by ity of tablet 00:00: mouth [place] [address] every 6 Medical (six) Branch hours as needed for Pain (scale 7-10). gabapentin 2023-0 Yes [id number] 300mg Take 1 Univers 300 mg 4-10 capsule by ity of capsule 00:00: mouth in [place] 00 the Medical morning Branch and 1 capsule at noon and 1 capsule in the evening. ketorolac 2023-0 Yes [id number] 10mg Take 1 U nivers 10 mg 4-10 tablet by ity of tablet 00:00: mouth [place] 00 every 6 Medical (six) Branch hours as needed for Pain (scale 7-10). gabapentin 2023-0 Yes [id number] 300mg Take 1 Univers 300 mg 4-10 capsule by ity of capsule 00:00: mouth in [place] 00 the Medical morning Branch and 1 capsule at noon and 1 capsule in the evening. ketorolac 2023-0 Yes [id number] 10mg Take 1 U nivers 10 mg 4-10 tablet by ity of tablet 00:00: mouth [place] 00 every 6 Medical (six) Branch hours as needed for Pain (scale 7-10). gabapentin 2023-0 Yes [id number] 300mg Take 1 Univers 300 mg 4-10 capsule by ity of capsule 00:00: mouth in [place] 00 the Medical morning Branch and 1 capsule at noon and 1 capsule in the evening. ketorolac 2023-0 Yes [id number] 10mg Take 1 U nivers 10 mg 4-10 tablet by ity of tablet 00:00: mouth [place] 00 every 6 Medical (six) Branch hours as needed for Pain (scale 7-10). gabapentin 2023-0 Yes [id number] 300mg Take 1 Univers 300 mg 4-10 capsule by ity of capsule 00:00: mouth in [place] 00 the Medical morning Branch and 1 capsule at noon and 1 capsule in the evening. ketorolac 2023-0 Yes [id number] 10mg Take 1 U nivers 10 mg 4-10 tablet by ity of tablet 00:00: mouth [place] 00 every 6 Medical (six) Branch hours as needed for Pain (scale 7-10). gabapentin 2023-0 2023- No [id number] 300mg Take 1 Univers 300 mg 4-10 04-25 capsule by ity of capsule 00:00: 00:00 mouth in [place] 00 :00 the Medical morning Branch and 1 capsule at noon and 1 capsule in the evening. methocarbam 2022- No [id number] 500mg Take 1 Univers oL 500 mg 4-10 04-25 tablet by ity of tablet 00:00: 00:00 mouth 4 [place] 00 :00 (four) Medical times Branch daily for 7 days. ketorolac 2022- No [id number] 10mg Take 1 Univers 10 mg 4-10 04-25 tablet by ity of tablet 00:00: 00:00 mouth [place] 00 :00 every 6 Medical (six) Branch hours as needed for Pain (scale 7-10). methocarbam 2022- Yes [id number] 500mg Take 1 Univers oL 500 mg 4-10 04-18 tablet by ity of tablet 00:00: 04:59 mouth 4 [place] 00 :00 (four) Medical times Branch daily for 7 days. methocarbam 2022- Yes [id number] 500mg Take 1 Univers oL 500 mg 4-10 04-18 tablet by ity of tablet 00:00: 04:59 mouth 4 [place] 00 :00 (four) Medical times Branch daily for 7 days. methocarbam 2022- Yes [id number] 500mg Take 1 Univers oL 500 mg 4-10 04-18 tablet by ity of tablet 00:00: 04:59 mouth 4 [place] 00 :00 (four) Medical times Branch daily for 7 days. methocarbam 2022- No [id number] 500mg Take 1 Univers oL 500 mg 4-10 04-18 tablet by ity of tablet 00:00: 04:59 mouth 4 [place] 00 :00 (four) Medical times Branch daily for 7 days. methocarbam 2022- No [id number] 500mg Take 1 Univers oL 500 mg 4-10 04-18 tablet by ity of tablet 00:00: 04:59 mouth 4 [place] 00 :00 (four) Medical times Branch daily for 7 days. mirtazapine 2022-0 Yes [id number] 45mg Take 1 Univers 45 mg 2-23 tablet by ity of tablet 00:00: mouth at [place] 00 bedtime. Medical Branch mirtazapine 2022-0 Yes [id number] 45mg Take 1 Univers 45 mg 2-23 tablet by ity of tablet 00:00: mouth at [place] 00 bedtime. Medical Branch mirtazapine 3-0 Yes [id number] 45mg Take 1 Univers 45 mg 2-23 tablet by ity of tablet 00:00: mouth at [place] [address] bedtime. Medical Branch mirtazapine 3-0 Yes [id number] 45mg Take 1 Univers 45 mg 2-23 tablet by ity of tablet 00:00: mouth at [place] [address] bedtime. Medical Branch mirtazapine 3-0 Yes [id number] 45mg Take 1 Univers 45 mg 2-23 tablet by ity of tablet 00:00: mouth at [place] [address] bedtime. Medical Branch mirtazapine 3-0 Yes [id number] 45mg Take 1 Univers 45 mg 2-23 tablet by ity of tablet 00:00: mouth at [place] [address] bedtime. Medical Branch mirtazapine 3-0 Yes [id number] 45mg Take 1 Univers 45 mg 2-23 tablet by ity of tablet 00:00: mouth at [place] [address] bedtime. Medical Branch mirtazapine 2022-0 Yes [id number] 45mg Take 1 Univers 45 mg 2-23 tablet by ity of tablet 00:00: mouth at [place] [address] bedtime. Medical Branch mirtazapine 2022-0 Yes [id number] 45mg Take 1 Univers 45 mg 2-23 tablet by ity of tablet 00:00: mouth at [place] [address] bedtime. Medical Branch mirtazapine 3-0 Yes [id number] 45mg Take 1 Univers 45 mg 2-23 tablet by ity of tablet 00:00: mouth at [place] [address] bedtime. Medical Branch mirtazapine 3-0 Yes [id number] 45mg Take 1 Univers 45 mg 2-23 tablet by ity of tablet 00:00: mouth at [place] [address] bedtime. Medical Branch mirtazapine 3-0 Yes [id number] 45mg Take 1 Univers 45 mg 2-23 tablet by ity of tablet 00:00: mouth at [place] [address] bedtime. Medical Branch mirtazapine 3-0 Yes [id number] 45mg Take 1 Univers 45 mg 2-23 tablet by ity of tablet 00:00: mouth at [place] [address] bedtime. Medical Branch mirtazapine 3-0 Yes [id number] 45mg Take 1 Univers 45 mg 2-23 tablet by ity of tablet 00:00: mouth at [place] [address] bedtime. Medical Branch mirtazapine 2022-0 Yes [id number] 45mg Take 1 Univers 45 mg 2-23 tablet by ity of tablet 00:00: mouth at [place] [address] bedtime. Medical Branch mirtazapine 2022-0 Yes [id number] 45mg Take 1 Univers 45 mg 2-23 tablet by ity of tablet 00:00: mouth at [place] [address] bedtime. Medical Branch mirtazapine 2022-0 Yes [id number] 45mg Take 1 Univers 45 mg 2-23 tablet by ity of tablet 00:00: mouth at [place] [address] bedtime. Medical Branch mirtazapine 2022-0 Yes [id number] 45mg Take 1 Univers 45 mg 2-23 tablet by ity of tablet 00:00: mouth at [place] [address] bedtime. Medical Branch mirtazapine 2022-0 Yes [id number] 45mg Take 1 Univers 45 mg 2-23 tablet by ity of tablet 00:00: mouth at [place] [address] bedtime. Medical Branch mirtazapine 2022-0 Yes [id number] 45mg Take 1 Univers 45 mg 2-23 tablet by ity of tablet 00:00: mouth at [place] [address] bedtime. Medical Branch mirtazapine 2022-0 Yes [id number] 45mg Take 1 Univers 45 mg 2-23 tablet by ity of tablet 00:00: mouth at [place] [address] bedtime. Medical Branch mirtazapine 2022-0 Yes [id number] 45mg Take 1 Univers 45 mg 2-23 tablet by ity of tablet 00:00: mouth at [place] [address] bedtime. Medical Branch mirtazapine 2022-0 Yes [id number] 45mg Take 1 Univers 45 mg 2-23 tablet by ity of tablet 00:00: mouth at [place] [address] bedtime. Medical Branch mirtazapine 2022-0 Yes [id number] 45mg Take 1 Univers 45 mg 2-23 tablet by ity of tablet 00:00: mouth at [place] [address] bedtime. Medical Branch mirtazapine 2022-0 Yes [id number] 45mg Take 1 Univers 45 mg 2-23 tablet by ity of tablet 00:00: mouth at [place] [address] bedtime. Medical Branch mirtazapine 3-0 2023- No [id number] 45mg Take 1 Univers 45 mg 2-23 04-25 tablet by ity of tablet 00:00: 00:00 mouth at [place] 00 :00 bedtime. Medical Branch mirtazapine 2021- Yes [id number] 30mg Take 1 Univers 30 mg 2-21 tablet by ity of tablet 00:00: mouth at [place] [address] bedtime. Medical Branch mirtazapine 2021- Yes [id number] 30mg Take 1 Univers 30 mg 2-21 tablet by ity of tablet 00:00: mouth at [place] [address] bedtime. Medical Branch mirtazapine 2021- Yes [id number] 30mg Take 1 Univers 30 mg 2-21 tablet by ity of tablet 00:00: mouth at [place] [address] bedtime. Medical Branch mirtazapine 2021- Yes [id number] 30mg Take 1 Univers 30 mg 2-21 tablet by ity of tablet 00:00: mouth at [place] [address] bedtime. Medical Branch mirtazapine 2021- Yes [id number] 30mg Take 1 Univers 30 mg 2-21 tablet by ity of tablet 00:00: mouth at [place] [address] bedtime. Medical Branch mirtazapine 2021- Yes [id number] 30mg Take 1 Univers 30 mg 2-21 tablet by ity of tablet 00:00: mouth at [place] [address] bedtime. Medical Branch mirtazapine 2021- Yes [id number] 30mg Take 1 Univers 30 mg 2-21 tablet by ity of tablet 00:00: mouth at [place] [address] bedtime. Medical Branch mirtazapine 2021- Yes [id number] 30mg Take 1 Univers 30 mg 2-21 tablet by ity of tablet 00:00: mouth at [place] [address] bedtime. Medical Branch mirtazapine 2021- Yes [id number] 30mg Take 1 Univers 30 mg 2-21 tablet by ity of tablet 00:00: mouth at [place] [address] bedtime. Medical Branch mirtazapine 2021-2022- No [id number] 30mg Take 1 Univers 30 mg 2-21 02-23 tablet by ity of tablet 00:00: 00:00 mouth at [place] 00 :00 bedtime. [facility] Branch mirtazapine 2021-2022- No [id number] 30mg Take 1 Univers 30 mg 2-21 02-23 tablet by ity of tablet 00:00: 00:00 mouth at [place] 00 :00 bedtime. Medical Branch traMADoL 50 2021-02 Yes 50mg Take 1 Univ ers mg tablet 2-08 tablet by ity o f 00:00: mouth in [place] the Medical morning Branch and 1 tablet at noon and 1 tablet in the evening. traMADoL 50 2021-02 Yes 50mg Take 1 Univ ers mg tablet 2-08 tablet by ity o f 00:00: mouth in [place] 00 the Medical morning Branch and 1 tablet at noon and 1 tablet in the evening. traMADoL 50 2021-02 Yes 50mg Take 1 Univ ers mg tablet 2-08 tablet by ity o f 00:00: mouth in [place] 00 the Medical morning Branch and 1 tablet at noon and 1 tablet in the evening. traMADoL 50 2021-02 Yes 50mg Take 1 Univ ers mg tablet 2-08 tablet by ity o f 00:00: mouth in [place] the Medical morning Branch and 1 tablet at noon and 1 tablet in the evening. traMADoL 50 2021-02 Yes 50mg Take 1 Univ ers mg tablet 2-08 tablet by ity o f 00:00: mouth in [place] the Medical morning Branch and 1 tablet at noon and 1 tablet in the evening. traMADoL 50 2021-02 Yes 50mg Take 1 Univ ers mg tablet 2-08 tablet by ity o f 00:00: mouth in [place] the Medical morning Branch and 1 tablet at noon and 1 tablet in the evening. traMADoL 50 2021-02 Yes 50mg Take 1 Univ ers mg tablet 2-08 tablet by ity o f 00:00: mouth in [place] the Medical morning Branch and 1 tablet at noon and 1 tablet in the evening. traMADoL 50 2021-02 Yes 50mg Take 1 Univ ers mg tablet 2-08 tablet by ity o f 00:00: mouth in [place] the Medical morning Branch and 1 tablet at noon and 1 tablet in the evening. traMADoL 50 2021-1 Yes 50mg Take 1 Univ ers mg tablet 2-08 tablet by ity o f 00:00: mouth in [place] [address] the Medical morning Branch and 1 tablet at noon and 1 tablet in the evening. traMADoL 50 2021- Yes 50mg Take 1 Univ ers mg tablet 2-08 tablet by ity o f 00:00: mouth in [place] [address] the Medical morning Branch and 1 tablet at noon and 1 tablet in the evening. traMADoL 50 2021-02 Yes 50mg Take 1 Univ ers mg tablet 2-08 tablet by ity o f 00:00: mouth in [place] 00 the Medical morning Branch and 1 tablet at noon and 1 tablet in the evening. traMADoL 50 2021-02 Yes 50mg Take 1 Univ ers mg tablet 2-08 tablet by ity o f 00:00: mouth in [place] 00 the Medical morning Branch and 1 tablet at noon and 1 tablet in the evening. traMADoL 50 2021-02 Yes 50mg Take 1 Univ ers mg tablet 2-08 tablet by ity o f 00:00: mouth in [place] 00 the Medical morning Branch and 1 tablet at noon and 1 tablet in the evening. traMADoL 50 2021-02 Yes 50mg Take 1 Univ ers mg tablet 2-08 tablet by ity o f 00:00: mouth in [place] 00 the Medical morning Branch and 1 tablet at noon and 1 tablet in the evening. traMADoL 50 2021-02 Yes 50mg Take 1 Univ ers mg tablet 2-08 tablet by ity o f 00:00: mouth in [place] [address] the Medical morning Branch and 1 tablet at noon and 1 tablet in the evening. traMADoL 50 2021-02 Yes 50mg Take 1 Univ ers mg tablet 2-08 tablet by ity o f 00:00: mouth in [place] the Medical morning Branch and 1 tablet at noon and 1 tablet in the evening. traMADoL 50 2021-02 Yes 50mg Take 1 Univ ers mg tablet 2-08 tablet by ity o f 00:00: mouth in [place] the Medical morning Branch and 1 tablet at noon and 1 tablet in the evening. traMADoL 50 2021-02 Yes 50mg Take 1 Univ ers mg tablet 2-08 tablet by ity o f 00:00: mouth in [place] 00 the Medical morning Branch and 1 tablet at noon and 1 tablet in the evening. traMADoL 50 2021-02 Yes 50mg Take 50 mg Univers mg tablet 2-08 by mouth ity of 00:00: in the [place] [address] morning Medical and 50 mg Branch at noon and 50 mg in the evening. traMADoL 50 2021-02 Yes 50mg Take 50 mg Univers mg tablet 2-08 by mouth ity of 00:00: in the [place] morning Medical and 50 mg Branch at noon and 50 mg in the evening. traMADoL 50 2021-02 Yes 50mg Take 50 mg Univers mg tablet 2-08 by mouth ity of 00:00: in the [place] 00 morning Medical and 50 mg Branch at noon and 50 mg in the evening. traMADoL 50 2021- Yes 50mg Take 50 mg Univers mg tablet 2-08 by mouth ity of 00:00: in the [place] 00 morning Medical and 50 mg Branch at noon and 50 mg in the evening. traMADoL 50 2021-02 Yes 50mg Take 50 mg Univers mg tablet 2-08 by mouth ity of 00:00: in the [place] morning Medical and 50 mg Branch at noon and 50 mg in the evening. traMADoL 50 2021-02 Yes 50mg Take 50 mg Univers mg tablet 2-08 by mouth ity of 00:00: in the [place] morning Medical and 50 mg Branch at noon and 50 mg in the evening. traMADoL 50 2021-02 Yes 50mg Take 50 mg Univers mg tablet 2-08 by mouth ity of 00:00: in the [place] morning Medical and 50 mg Branch at noon and 50 mg in the evening. traMADoL 50 2021-02 Yes 50mg Take 50 mg Univers mg tablet 2-08 by mouth ity of 00:00: in the [place] morning Medical and 50 mg Branch at noon and 50 mg in the evening. traMADoL 50 2021-02 Yes 50mg Take 50 mg Univers mg tablet 2-08 by mouth ity of 00:00: in the [place] morning Medical and 50 mg Branch at noon and 50 mg in the evening. traMADoL 50 2021-02 Yes 50mg Take 50 mg Univers mg tablet 2-08 by mouth ity of 00:00: in the [place] morning Medical and 50 mg Branch at noon and 50 mg in the evening. traMADoL 50 2021-02 Yes 50mg Take 50 mg Univers mg tablet 2-08 by mouth ity of 00:00: in the [place] morning Medical and 50 mg Branch at noon and 50 mg in the evening. traMADoL 50 2021- Yes 50mg Take 50 mg Univers mg tablet 2-08 by mouth ity of 00:00: in the [place] 00 morning Medical and 50 mg Branch at noon and 50 mg in the evening. traMADoL 50 2021-02 Yes 50mg Take 50 mg Univers mg tablet 2-08 by mouth ity of 00:00: in the [place] 00 morning Medical and 50 mg Branch at noon and 50 mg in the evening. traMADoL 50 2021-02 Yes 50mg Take 50 mg Univers mg tablet 2-08 by mouth ity of 00:00: in the [place] 00 morning Medical and 50 mg Branch at noon and 50 mg in the evening. traMADoL 50 2021-02 Yes 50mg Take 1 [facility] ers mg tablet 2-08 tablet by ity o f 00:00: mouth in [place] 00 the Medical morning Branch and 1 tablet at noon and 1 tablet in the evening. traMADoL 50 2021-02 Yes 50mg Take 1 Univ ers mg tablet 2-08 tablet by ity o f 00:00: mouth in [place] 00 the Medical morning Branch and 1 tablet at noon and 1 tablet in the evening. traMADoL 50 2021-02 Yes 50mg Take 1 Univ ers mg tablet 2-08 tablet by ity o f 00:00: mouth in [place] 00 the Medical morning Branch and 1 tablet at noon and 1 tablet in the evening. traMADoL 50 2021-02 No 50mg Take 1 Uni vers mg tablet 2-08 04-25 tablet by ity of 00:00: 00:00 mouth in [place] 00 :00 the Medical morning Branch and 1 tablet at noon and 1 tablet in the evening. mirtazapine 2021-02 Yes [id number] 15mg Take 1 Univers 15 mg 1-21 tablet by ity of tablet 00:00: mouth at [place] [address] bedtime. Medical Branch mirtazapine 2021-02 Yes [id number] 15mg Take 1 [facility] 15 mg 1-21 tablet by ity of tablet 00:00: mouth at [place] [address] bedtime. Medical Branch mirtazapine 2021-02 Yes [id number] 15mg Take 1 Univers 15 mg 1-21 tablet by ity of tablet 00:00: mouth at [place] [address] bedtime. Medical Branch mirtazapine 2021-02- No [id number] 15mg Take 1 Univers 15 mg 1-21 12-21 tablet by ity of tablet 00:00: 00:00 mouth at [place] 00 :00 bedtime. [facility] Branch mirtazapine 2021-02- No [id number] 15mg Take 1 Univers 15 mg 1-21 12-21 tablet by ity of tablet 00:00: 00:00 mouth at [place] 00 :00 bedtime. Medical Branch vortioxetin 2021-02 Yes [id number] 5mg Take 1 Univers e 0-20 tablet by ity of (TRINTELLIX 00:00: mouth in [place] ) 5 mg Tab 00 the Medical morning. Branch vortioxetin 2021-02 Yes [id number] 5mg Take 1 Univers e 0-20 tablet by ity of (TRINTELLIX 00:00: mouth in [place] ) 5 mg Tab 00 the Medical morning. Branch vortioxetin 2021-02 Yes [id number] 5mg Take 1 Univers e 0-20 tablet by ity of (TRINTELLIX 00:00: mouth in [place] ) 5 mg Tab 00 the Medical morning. Branch vortioxetin 2021-02 Yes [id number] 5mg Take 1 Univers e 0-20 tablet by ity of (TRINTELLIX 00:00: mouth in [place] ) 5 mg Tab 00 the Medical morning. Branch vortioxetin 2021-02 Yes [id number] 5mg Take 1 Univers e 0-20 tablet by ity of (TRINTELLIX 00:00: mouth in [place] ) 5 mg Tab 00 the Medical morning. Branch vortioxetin 2021-02 Yes [id number] 5mg Take 1 Univers e 0-20 tablet by ity of (TRINTELLIX 00:00: mouth in [place] ) 5 mg Tab 00 the Medical morning. Branch vortioxetin 2021-02- No [id number] 5mg Take 1 Univers e 0-20 11-21 tablet by ity of (TRINTELLIX 00:00: 00:00 mouth in [place] ) 5 mg Tab 00 :00 the Medical morning. Branch vortioxetin 2021-02- No [id number] 5mg Take 1 Univers e 0-20 11-21 tablet by ity of (TRINTELLIX 00:00: 00:00 mouth in [place] ) 5 mg Tab 00 :00 the Medical morning. Branch DULoxetine Yes [id number] 20mg Take 1 Univers 20 mg 9-20 capsule by ity of capsule 00:00: mouth in [place] 00 the Medical morning. Branch DULoxetine 2021-0 Yes [id number] 20mg Take 1 Univers 20 mg 9-20 capsule by ity of capsule 00:00: mouth in [place] 00 the Medical morning. Branch DULoxetine 2021-0 Yes [id number] 20mg Take 1 [facility] 20 mg 9-20 capsule by ity of capsule 00:00: mouth in [place] 00 the Medical morning. Branch DULoxetine 2021-0 Yes [id number] 20mg Take 1 Univers 20 mg 9-20 capsule by ity of capsule 00:00: mouth in [place] 00 the Medical morning. Branch DULoxetine 2021-0 Yes [id number] 20mg Take 1 Univers 20 mg 9-20 capsule by ity of capsule 00:00: mouth in [place] 00 the Medical morning. Branch DULoxetine 2021-0 2- No [id number] 20mg Take 1 Univers 20 mg 9-20 10-20 capsule by ity of capsule 00:00: 00:00 mouth in [place] 00 :00 the Medical morning. Branch DULoxetine 2021-0 2- No [id number] 20mg Take 1 Univers 20 mg 9-20 10-20 capsule by ity of capsule 00:00: 00:00 mouth in [place] 00 :00 the Medical morning. Branch gabapentin 2021-0 Yes [id number] 300mg Take 1 Univers 300 mg 8-23 capsule by ity of capsule 00:00: mouth at [place] 00 bedtime. Medical Branch gabapentin 2-0 Yes [id number] 300mg Take 1 Univers 300 mg 8-23 capsule by ity of capsule 00:00: mouth at [place] 00 bedtime. Medical Branch gabapentin 2-0 Yes [id number] 300mg Take 1 Univers 300 mg 8-23 capsule by ity of capsule 00:00: mouth at [place] 00 bedtime. Medical Branch gabapentin 2-0 2022- No [id number] 300mg Take 1 Univers 300 mg 8-23 09-20 capsule by ity of capsule 00:00: 00:00 mouth at [place] 00 :00 bedtime. Medical Branch gabapentin 2022-0 2022- No [id number] 300mg Take 1 Univers 300 mg 8-23 09-20 capsule by ity of capsule 00:00: 00:00 mouth at [place] 00 :00 bedtime. Medical Branch mirtazapine 2022-0 2022- No 30mg Take 30 mg Univers 30 mg 09-20- by mouth ity of tablet 00:00: 00:00 in the [place] 00 :00 morning. Medical Branch mirtazapine 2-0 2- No 30mg Take 30 mg Univers 30 mg 09-20 by mouth ity of tablet 00:00: 00:00 in the [place] 00 :00 morning. Medical Branch sertraline 2020-0 [...] 0.9% 6-09 (Same as: l 18:36: BD [place] 00 Posiflush) Saline No Notes: Memoria Flush 0.9% 6-09 (Same as: l 18:36: BD [place] 00 Posiflush) Saline No Notes: [facility]oria Flush 0.9% 6-09 (Same as: l 18:36: BD [place] 00 Posiflush) Saline No Notes: Memoria Flush 0.9% 6-09 (Same as: l 18:36: BD [place] 00 Posiflush) Saline No Notes: Memoria Flush 0.9% 6-09 (Same as: l 18:36: BD [place] 00 Posiflush) Saline No Notes: Memoria Flush 0.9% 6-09 (Same as: l 18:36: BD [place] 00 Posiflush) Saline No Notes: Memoria Flush 0.9% 6-09 (Same as: l 18:36: BD [place] 00 Posiflush) Saline No Notes: Memoria Flush 0.9% 6-09 (Same as: l 18:36: BD [place] 00 Posiflush) Saline No Notes: Memoria Flush 0.9% 6-09 (Same as: l 18:36: BD [place] 00 Posiflush) Saline No Notes: Memoria Flush 0.9% 6-09 (Same as: l 18:36: BD [place] 00 Posiflush) Saline No Notes: Memoria Flush 0.9% 6-09 (Same as: l 18:36: BD [place] 00 Posiflush) Saline No Notes: Memoria Flush 0.9% 6-09 (Same as: l 18:36: BD [place] 00 Posiflush) Saline No Notes: Memoria Flush 0.9% 6-09 (Same as: l 18:36: BD [place] 00 Posiflush) Saline No Notes: Memoria Flush 0.9% 6-09 (Same as: l 18:36: BD [place] 00 Posiflush) Saline No Notes: Memoria Flush 0.9% 6-09 (Same as: l 18:36: BD [place] 00 Posiflush) Saline No Notes: Memoria Flush 0.9% 6-09 (Same as: l 18:36: BD [place] 00 Posiflush) Saline No Notes: Memoria Flush 0.9% 6-09 (Same as: l 18:36: BD [place] 00 Posiflush) Saline No Notes: Memoria Flush 0.9% 6-09 (Same as: l 18:36: BD [place] 00 Posiflush) Saline No Notes: Memoria Flush 0.9% 6-09 (Same as: l 18:36: BD [place] 00 Posiflush) Saline No Notes: Memoria Flush 0.9% 6-09 (Same as: l 18:36: BD [place] 00 Posiflush) Saline No Notes: Memoria Flush 0.9% 6-09 (Same as: l 18:36: BD [place] 00 Posiflush) Saline No Notes: Memoria Flush 0.9% 6-09 (Same as: l 18:36: BD [place] 00 Posiflush) Saline No Notes: Memoria Flush 0.9% 6-09 (Same as: l 18:36: BD [place] 00 Posiflush) Saline No Notes: Memoria Flush 0.9% 6-09 (Same as: l 18:36: BD [place] 00 Posiflush) Saline No Notes: Memoria Flush 0.9% 6-09 (Same as: l 18:36: BD [place] 00 Posiflush) Saline No Notes: Memoria Flush 0.9% 6-09 (Same as: l 18:36: BD [place] 00 Posiflush) Saline No Notes: Memoria Flush 0.9% 6-09 (Same as: l 18:36: BD [place] 00 Posiflush) Saline No Notes: Memoria Flush 0.9% 6-09 (Same as: l 18:36: BD [place] 00 Posiflush) Saline No Notes: Memoria Flush 0.9% 6-09 (Same as: l 18:36: BD [place] 00 Posiflush) Saline No Notes: Memoria Flush 0.9% 6-09 (Same as: l 18:36: BD [place] 00 Posiflush) Vital Signs Vital Name Observation Time Observation Value Comments Source Systolic blood 2022-07-16 14:11:00 145 mm[Hg] Univer [facility]ity of [facility] Diastolic blood 2022-07-16 14:11:00 73 mm[Hg] Unive rsity of pressure [place] [facility] Heart rate 2022-07-16 14:11:00 62 /min [facility] ty of [place] [facility] Body temperature 2022-07-16 14:11:00 36.33 Nita Univ ers[facility] of [place] [facility] Respiratory rate 2022-07-16 14:11:00 20 /min Univ ersity of [place] [facility] Oxygen saturation in 2022-07-16 14:11:00 100 /min University of Arterial blood by [place] [employer] [facility] oxim[facility] Branch WEIGHT 2022-07-12 06:00:00 86 kg WEIGHT 2022-07-12 06:00:00 86 kg Systolic blood 2022-07-11 15:10:00 117 mm[Hg] Univer sity of pressure [place] [facility] Diastolic blood 2022-07-11 15:10:00 68 mm[Hg] Unive rsity of pressure [place] [facility] Heart rate 2022-07-11 15:10:00 74 /min [facility] [place] [facility] Body temperature 2022-07-11 15:10:00 36.94 [place] [facility] [place] [facility] Respiratory rate 2022-07-11 15:10:00 18 /min Univ ers[facility] of [place] [facility] Body weight 2022-07-11 15:10:00 90.719 kg [facility] [place] [facility] BMI 2022-07-11 15:10:00 32.28 kg/m2 [facility] [place] [facility] Oxygen saturation in 2022-07-11 15:10:00 98 /min University of Arterial blood by [place] [employer] [facility] Pulse oxim[facility] Branch Systolic blood 2022-07-11 11:20:00 133 mm[Hg] Univer sity of pressure [place] [facility] Diastolic blood 2022-07-11 11:20:00 69 mm[Hg] Unive rsity of pressure [place] [facility] Heart rate 2022-07-11 11:20:00 78 /min [facility] [place] [facility] Respiratory rate 2022-07-11 11:20:00 18 /min Univ ers[facility] of [place] [facility] Oxygen saturation in 2022-07-11 11:20:00 99 /min University of Arterial blood by [place] [employer] Pulse oximetry Branch Body temperature 2022-07-11 09:24:00 36.83 N[place] [facility] [place] [facility] Body weight 2022-07-11 09:24:00 90.719 kg [facility] [place] [facility] [place] BMI 2022-07-11 09:24:00 32.28 kg/m2 Universi ty of [facility] Branch Systolic blood 2022-07-08 18:24:00 130 mm[Hg] Univer sity of pressure [place] [facility] Diastolic blood 2022-07-08 18:24:00 57 mm[Hg] Unive rsity of pressure [facility] Heart rate 2022-07-08 18:24:00 87 /min Universi ty of [facility] Body temperature 2022-07-08 18:24:00 36.72 Nita [facility] of [place] [facility] Respiratory rate 2022-07-08 18:24:00 18 /min [facility] [place] [facility] [place] Body weight 2022-07-08 18:24:00 90.719 kg [facility] [place] [facility] [place] BMI 2022-07-08 18:24:00 32.28 kg/m2 Universi ty of [facility] Oxygen saturation in 2022-07-08 18:24:00 97 /min University of Arterial blood by [facility] Pulse oximetry Branch Systolic blood 2022-07-05 14:00:00 155 mm[Hg] Univer sity of pressure [facility] Diastolic blood 2022-07-05 14:00:00 80 mm[Hg] Unive rsity of pressure [facility] Heart rate 2022-07-05 14:00:00 76 /min Universi ty of [facility] Body temperature 2022-07-05 14:00:00 37.56 [place] Univ ersity of [facility] Respiratory rate 2022-07-05 14:00:00 16 /min Univ ersity of [place] [facility] Oxygen saturation in 2022-07-05 14:00:00 98 /min University of Arterial blood by [facility] Pulse oximetry Branch Body weight 2022-07-05 10:49:00 90.719 kg Universi ty of [facility] BMI 2022-07-05 10:49:00 32.28 kg/m2 [facility] [place] [facility] HEIGHT 2022-06-21 11:16:00 167.6 cm WEIGHT 2022-06-21 11:16:00 87.181 kg HEIGHT 2022-06-21 11:16:00 167.6 cm WEIGHT 2022-06-21 11:16:00 87.181 kg Systolic blood 2022-06-16 16:05:00 112 mm[Hg] Univer sity of pressure [place] [facility] Diastolic blood 2022-06-16 16:05:00 72 mm[Hg] Unive rsity of pressure [place] [facility] Heart rate 2022-06-16 16:05:00 90 /min [facility] [place] [facility] [place] Body temperature 2022-06-16 16:05:00 36.72 [place] [facility] [place] [facility] Respiratory rate 2022-06-16 16:05:00 16 /min Univ [facility] of [place] [facility] Body height 2022-06-16 16:05:00 167.6 cm [facility] of [place] [facility] Body weight 2022-06-16 16:05:00 91.173 kg [facility] [place] [facility] BMI 2022-06-16 16:05:00 32.44 kg/m2 [facility] [place] [facility] Oxygen saturation in 2022-06-16 16:05:00 100 /min University of Arterial blood by [facility] Pulse oximetry Branch Systolic blood 2022-06-07 18:25:00 140 mm[Hg] Univer sity of pressure [place] [facility] Diastolic blood 2022-06-07 18:25:00 74 mm[Hg] Unive rsity of pressure [place] [facility] Heart rate 2022-06-07 18:25:00 70 /min [facility] of [place] [facility] Body temperature 2022-06-07 18:25:00 36.44 [place]ita Univ ersity of [facility] Branch Respiratory rate 2022-06-07 18:25:00 20 /min Univ ersity of [place] [facility] Oxygen saturation in 2022-06-07 18:25:00 100 /min University of Arterial blood by [facility] Pulse oximetry Branch Body weight 2022-05-27 08:00:00 86.456 kg [facility] [place] [facility] BMI 2022-05-27 08:00:00 30.76 kg/m2 [facility] [place] [facility] Body height 2022-05-27 02:20:00 167.6 cm [facility] [place] [facility] Systolic blood 2022-06-03 10:48:00 136 mm[Hg] Univer sity of pressure [place] [facility] Diastolic blood 2022-06-03 10:48:00 67 mm[Hg] Unive rsity of pressure [place] [facility] Heart rate 2022-06-03 10:48:00 80 /min [facility] [place] [facility] Body temperature 2022-06-03 10:48:00 36.28 [place] [facility] [place] [facility] Respiratory rate 2022-06-03 10:48:00 18 /min Univ [facility]ity of [place] [facility] Oxygen saturation in 2022-06-03 10:48:00 97 /min University of Arterial blood by [place] [employer] [facility] Pulse oxim[facility] Branch Body weight 2022-05-27 08:00:00 86.456 kg [facility] [place] [facility] BMI 2022-05-27 08:00:00 30.76 kg/m2 [facility] [place] [facility] Body height 2022-05-27 02:20:00 167.6 cm [facility] [place] [facility] Systolic blood 2022-05-31 01:00:00 116 mm[Hg] Univer sity of pressure [place] [facility] Diastolic blood 2022-05-31 01:00:00 68 mm[Hg] Unive rsity of pressure [place] [facility] Heart rate 2022-05-31 01:00:00 79 /min [facility]i [facility] of [place] [facility] Body temperature 2022-05-31 01:00:00 37.78 [place] [facility] [place] [facility] Respiratory rate 2022-05-31 01:00:00 14 /min Univ [facility] of [place] [facility] Oxygen saturation in 2022-05-31 01:00:00 96 /min University of Arterial blood by [place] [employer] [facility] Pulse oxim[facility] Branch Body weight 2022-05-27 08:00:00 86.456 kg [facility] [place] [facility] BMI 2022-05-27 08:00:00 30.76 kg/m2 [facility] [place] [facility] Body height 2022-05-27 02:20:00 167.6 cm [facility] [place] [facility] Systolic blood 2022-05-29 15:15:00 138 mm[Hg] Univer sity of pressure [place] [facility] Diastolic blood 2022-05-29 15:15:00 81 mm[Hg] Unive rsity of pressure [place] [facility] Heart rate 2022-05-29 15:15:00 62 /min [facility] [place] [facility] Body temperature 2022-05-29 15:15:00 36.39 N[place] [facility] [place] [facility] Respiratory rate 2022-05-29 15:15:00 18 /min Univ [facility] [place] [facility] Oxygen saturation in 2022-05-29 15:15:00 100 /min [facility] Arterial blood by [place] [facility] Pulse oximetry Branch Body weight 2022-05-27 08:00:00 86.456 kg [facility] [place] [facility] BMI 2022-05-27 08:00:00 30.76 kg/m2 [facility] [place] [facility] Body height 2022-05-27 02:20:00 167.6 cm [facility] [place] [facility] Systolic blood 2022-05-23 21:38:00 137 mm[Hg] Univer sity of pressure [place] [facility] Diastolic blood 2022-05-23 21:38:00 89 mm[Hg] Unive rsity of pressure [place] [facility] Heart rate 2022-05-23 21:38:00 100 /min [facility] [place] [facility] Body temperature 2022-05-23 21:38:00 36.67 [place] [facility] [place] [facility] Respiratory rate 2022-05-23 21:38:00 20 /min Univ ers[facility] of [place] [facility] Body weight 2022-05-23 21:38:00 81.647 kg [facility] [place] [facility] BMI 2022-05-23 21:38:00 29.05 kg/m2 [facility] [place] [facility] Oxygen saturation in 2022-05-23 21:38:00 100 /min University of Arterial blood by [facility] Pulse oximetry Branch Systolic blood 2022-05-23 10:00:00 144 mm[Hg] Univer sity of pressure [place] [facility] Diastolic blood 2022-05-23 10:00:00 79 mm[Hg] Unive rsity of pressure [place] [facility] Heart rate 2022-05-23 10:00:00 77 /min [facility]i ty of [place] [facility] Respiratory rate 2022-05-23 10:00:00 14 /min Univ ersity of [place] [facility] Oxygen saturation in 2022-05-23 10:00:00 96 /min University of Arterial blood by [facility] gordon Pulse oximetry Branch Body temperature 2022-05-23 08:49:00 36.72 [place] [facility] [place] [facility] Body height 2022-05-23 08:49:00 167.6 cm [facility] [place] [facility] Body weight 2022-05-23 08:49:00 81.647 kg [facility] [place] [facility] BMI 2022-05-23 08:49:00 29.05 kg/m2 [facility] [place] [facility] Systolic blood 2022-05-19 14:32:00 153 mm[Hg] Univer sity of pressure [place] [facility] Diastolic blood 2022-05-19 14:32:00 82 mm[Hg] Unive rsity of pressure [place] [facility] Heart rate 2022-05-19 14:31:00 86 /min [facility] [place] [facility] Body temperature 2022-05-19 14:31:00 36.11 Nita Univ ersity of [facility] Branch Body height 2022-05-19 14:31:00 167.6 cm [facility] [place] [facility] Body weight 2022-05-19 14:31:00 87.544 kg [facility] [place] [facility] BMI 2022-05-19 14:31:00 31.15 kg/m2 [facility] [place] [facility] Oxygen saturation in 2022-05-19 14:31:00 97 /min University Arterial blood by [facility] Pulse oximetry Branch Systolic blood 2022-05-03 14:51:00 136 mm[Hg] Univer sity of pressure [place] [facility] Diastolic blood 2022-05-03 14:51:00 80 mm[Hg] Unive rsity of pressure [place] [facility] Heart rate 2022-05-03 14:51:00 68 /min [facility] [place] [facility] Body height 2022-05-03 14:51:00 167.6 cm [facility] [place] [facility] Body weight 2022-05-03 14:51:00 84.369 kg [facility] [place] [facility] BMI 2022-05-03 14:51:00 30.02 kg/m2 [facility] [place] [facility] Systolic blood 2022-04-13 15:41:00 128 mm[Hg] Univer sity of pressure [place] [facility] Diastolic blood 2022-04-13 15:41:00 88 mm[Hg] Unive rsity of pressure [place] [facility] Heart rate 2022-04-13 15:41:00 88 /min [facility] [place] [facility] Respiratory rate 2022-04-13 15:41:00 18 /min Univ ersity of [facility] Body height 2022-04-13 15:41:00 167.6 cm [facility] [place] [facility] [place] Body weight 2022-04-13 15:41:00 86.047 kg [facility] [place] [facility] [place] BMI 2022-04-13 15:41:00 30.62 kg/m2 [facility]i ty of [facility] Oxygen saturation in 2022-04-13 15:41:00 96 /min University Arterial blood by [facility] Pulse oximetry Branch Systolic blood 2022-04-07 16:41:00 162 mm[Hg] Univer sity of pressure [facility] Diastolic blood 2022-04-07 16:41:00 89 mm[Hg] Unive rsity of pressure [facility] Heart rate 2022-04-07 16:41:00 81 /min [facility] [place] [facility] [place] Body weight 2022-04-07 16:39:00 86.183 kg [facility] [place] [facility] BMI 2022-04-07 16:39:00 30.67 kg/m2 [facility] [place] [facility] Systolic blood 2022-02-02 15:24:00 133 mm[Hg] [facility] Diastolic blood 2022-02-02 15:24:00 82 mm[Hg] Unive rsity of [facility] Heart rate 2022-02-02 15:24:00 82 /min [facility] Body height 2022-02-02 15:24:00 167.6 cm [facility] Body weight 2022-02-02 15:24:00 83.008 kg [facility] BMI 2022-02-02 15:24:00 29.54 kg/m2 Universi ty of [facility] Systolic blood 2022-01-03 15:07:00 129 mm[Hg] [facility] Diastolic blood 2022-01-03 15:07:00 82 mm[Hg] Unive rsity of pressure [facility] Heart rate 2022-01-03 15:07:00 76 /min [facility] Body temperature 2022-01-03 15:07:00 36.83 Nita Univ ersity [facility] Body height 2022-01-03 15:07:00 167.6 cm [facility] Body weight 2022-01-03 15:07:00 83.462 kg Universi ty of [facility] BMI 2022-01-03 15:07:00 29.70 kg/m2 Universi ty of [facility] Systolic blood 2021-12-08 15:22:00 144 mm[Hg] [facility] Diastolic blood 2021-12-08 15:22:00 84 mm[Hg] Unive rsity of pressure [facility] Heart rate 2021-12-08 15:18:00 70 /min Universi ty of [facility] Body height 2021-12-08 15:18:00 167.6 cm Universi ty of [facility] Body weight 2021-12-08 15:18:00 83.326 kg Universi ty of [facility] BMI 2021-12-08 15:18:00 29.65 kg/m2 Universi ty of [facility] Oxygen saturation in 2021-12-08 15:18:00 100 /min University of Arterial blood by [facility] Pulse oximetry Branch Systolic blood 2021-12-02 16:05:00 130 mm[Hg] Univer sity of pressure [facility] Diastolic blood 2021-12-02 16:05:00 78 mm[Hg] Unive rsity of pressure [facility] Heart rate 2021-12-02 16:05:00 61 /min Universi ty of [facility] Body temperature 2021-12-02 16:05:00 37.22 Nita Univ ersity of [facility] Body height 2021-12-02 16:05:00 167.6 cm Universi ty of [facility] Body weight 2021-12-02 16:05:00 84.369 kg Universi ty of [facility] BMI 2021-12-02 16:05:00 30.02 kg/m2 Universi ty of [facility] Systolic blood 2021-11-02 14:34:00 133 mm[Hg] Univer sity of pressure [facility] Diastolic blood 2021-11-02 14:34:00 79 mm[Hg] Unive rsity of pressure [facility] Heart rate 2021-11-02 14:34:00 80 /min Universi ty of [facility] Body height 2021-11-02 14:34:00 167.6 cm Universi ty of [facility] Body weight 2021-11-02 14:34:00 84.823 kg Universi ty of [facility] BMI 2021-11-02 14:34:00 30.18 kg/m2 Universi ty [facility] Systolic blood 2021-10-05 19:18:00 152 mm[Hg] Univer sity of pressure [facility] Diastolic blood 2021-10-05 19:18:00 87 mm[Hg] Unive rsity of [facility] Heart rate 2021-10-05 19:18:00 83 /min Universi ty of [facility] Body temperature 2021-10-05 19:18:00 37.33 Nita [facility] Body height 2021-10-05 19:18:00 167.6 cm Universi ty [facility] Body weight 2021-10-05 19:18:00 86.[address] [facility] BMI 2021-10-05 19:18:00 30.83 kg/m2 Universi ty [facility] Oxygen saturation in 2021-10-05 19:18:00 99 /min [facility] Arterial blood by [facility] Pulse oximetry Branch Heart rate 2022-06-23 15:28:08 91 /min [facility] Respiratory rate 2022-06-23 15:28:08 18 /min [facility] Oxygen saturation in 2022-06-23 15:28:08 100 /min [facility] Arterial blood by [facility] Pulse oximetry Body temperature 2022-06-23 15:28:04 36.89 Nita [facility] Systolic blood 2022-06-23 15:27:00 144 mm[Hg] [facility] Diastolic blood 2022-06-23 15:27:00 79 mm[Hg] [facility] Body height 2022-06-21 11:16:00 167.6 cm [facility] Body weight 2022-06-21 11:16:00 87.181 kg [facility] BMI 2022-06-21 11:16:00 31.02 kg/m2 [facility] Initial DRG Weight: 2020-02-15 05:04:52 [...] Temperature 2020-02-15 05:04:52 36.6\\S\\97.9 Weight 2020-02-15 05:04:52 92877\\S\\2627.91 Weight Measurement 2020-02-15 05:04:52 Built in Bedscale [...] Temperature 2020-02-10 08:28:02 36.6\\S\\97.9 Weight 2020-02-10 08:28:02 28966\\S\\2627.91 Weight Measurement 2020-02-10 08:28:02 Built in Bedscale [...] Temperature 2020-02-06 14:55:36 36.6\\S\\97.9 Weight 2020-02-06 14:55:36 50584\\S\\2627.91 Weight Measurement 2020-02-06 14:55:36 Built in Bedscale [...] Temperature 2020-02-06 12:25:52 36.7\\S\\98.1 Weight 2020-02-06 12:25:52 74248\\S\\2627.91 Weight Measurement 2020-02-06 12:25:52 Built in Bedscale [...] Temperature 2020-02-04 14:40:56 36.3\\S\\97.3 Weight 2020-02-04 14:40:56 93404\\S\\2627.91 Weight Measurement 2020-02-04 14:40:56 Built in Bedscale [...] Temperature 2020-02-04 12:53:01 36.3\\S\\97.3 Weight 2020-02-04 12:53:01 31455\\S\\2627.91 Weight Measurement 2020-02-04 12:53:01 [facility] Initial DRG Weight: 2020-02-04 10:07:56 0.8372 [...] Temperature 2020-02-04 10:07:56 36.7\\S\\98.1 Weight 2020-02-04 10:07:56 00729\\S\\2627.91 Weight Measurement 2020-02-04 10:07:56 Built in Bedscale [...] Temperature 2020-02-04 06:31:28 36.7\\S\\98.1 Weight 2020-02-04 06:31:28 09438\\S\\2627.91 Weight Measurement 2020-02-04 06:31:28 Built in Bedscale [...] Temperature 2020-02-03 15:40:21 37.1\\S\\98.8 Weight 2020-02-03 15:40:21 75675\\S\\2627.91 Weight Measurement 2020-02-03 15:40:21 Built in Bedscale [...] Temperature 2020-02-03 13:59:33 37.1\\S\\98.8 Weight 2020-02-03 13:59:33 74697\\S\\2627.91 Weight Measurement 2020-02-03 13:59:33 Built in Bedscale [...] Temperature 2020-02-03 13:57:29 37.1\\S\\98.8 Weight 2020-02-03 13:57:29 27169\\S\\2627.91 Weight Measurement 2020-02-03 13:57:29 Built in Bedscale Method WEIGHT 2020-02-03 05:44:00 74.5 kg HEIGHT 2020-02-03 05:00:00 167.64 cm Respitory Rate 2014-07-22 20:45:00 Sophie Meza Heart Rate 2014-07-22 20:45:00 [facility] Systolic (mm Hg) 2014-07-22 20:45:00 Jack rial [facility] Diastolic (mm Hg) 2014-07-22 20:45:00 [facility] Height 2014-07-22 17:53:00 167.64 cm [facility] Weight 2014-07-22 17:53:00 [facility] BMI Calculated 2014-07-22 17:53:00 [facility] Respitory Rate 2014-07-22 17:53:00 Memori al [facility] Temperature Oral (F) 2014-07-22 17:53:00 97.9 F [facility] Heart Rate 2014-07-22 17:53:00 [facility] Systolic (mm Hg) 2014-07-22 17:53:00 Jack rial [facility]iti Diastolic (mm Hg) 2014-07-22 17:53:00 Mem orial [facility] Procedures Procedure Date / Time Performing Clinician Source Performed COMP. METABOLIC PANEL 2022-07-11 10:41:00 Ángel Murray [facility] ([id number]) Medical Branch CBC WITH DIFF 2022-07-11 10:41:00 Ángel Murray [facility] POCT GLUCOSE (AUTOMATED) 2022-07-11 09:26:00 [facility] CONSENT/REFUSAL FOR 2022-07-11 04:57:15 Doctor Unassigned, [facility] DIAGNOSIS AND TREATMENT [facility] CONSENT/REFUSAL FOR 2022-07-08 18:20:06 Doctor Unassigned, [facility] DIAG[facility]IS AND [facility]REAT[facility] 2022-07-05 13:22:00 Hilda Miller [facility] XR TIBIA FIBULA 2 VW 2022-07-05 13:16:57 Hilda Miller [facility] COMP. METABOLIC PANEL 2022-07-05 12:59:00 Hilda Miller [facility] ([id number]) [facility] US LOWER EXTREMITY VEIN 2022-07-05 12:47:00 Hilda Miller [facility] WITH COMPRESSION [facility] Medical B ranch (ONLY FOR RULE OUT DVT) TROPONIN I 2022-07-05 11:49:00 Hilda Miller [facility] CBC WITH DIFF 2022-07-05 11:49:00 Hilda Miller [facility] N-TERMINAL PRO-BNP 2022-07-05 11:49:00 Hilda Miller [facility] US RENAL COMPLETE 2022-06-23 16:47:00 [facility] CBC W/PLT COUNT & AUTO 2022-06-23 05:27:00 [facility] DIFFERENTIAL Center CBC W/PLT COUNT & AUTO 2022-06-23 05:27:00 [facility] DIFFERENTIAL Center US ABDOMEN LIMITED 2022-06-22 16:17[facility]IC PANEL 2022-06-22 03:48:00 [facility] MAGNESIUM 2022-06-22 03:48:00 [facility] HEPATIC FUNCTION PANEL 2022-06-22 03:48:00 [facility] CBC W/PLT COUNT & AUTO 2022-06-22 03:48:00 [facility] DIFFERENTIAL Center PROTEIN ELECTROPHORESIS, 2022-06-22 03:48:00 [facility] Center IRON, TIBC, % SAT. 2022-06-22 03:48:00 [facility] (WITHOUT FERRITIN) Center VITAMIN B12 2022-06-22 03:48:00 [facility] FERRITIN 2022-06-22 03:48:00 [facility] HEPARIN ANTIBODY 2022-06-22 03:48:00 [facility] LACTATE DEHYDROGENASE 2022-06-22 03:48:00 Nini [facility] Kristy Center HAPTOGLOBIN 2022-06-22 03:48:00 Nini [facility] Kristy Center RETICULOCYTE COUNT 2022-06-22 03:48:00 [facility] SERUM IMMUNOTYPING 2022-06-22 03:48:00 [facility]OT[facility] RELEASE ASSAY 2022-06-22 03:48:00 [facility] W/[facility]T [facility] & AUTO 2022-06-22 03:48:00 [facility] URINE PROTEIN 2022-06-21 16:38:00 Fabienne [facility] ELECTROPHORESIS, RANDOM Center SARS-COV2/RT-PCR (HS & 2022-06-21 11:14:00 Fabienne [facility] REF LABS) Center COMPREHENSIVE METABOLIC 2022-06-21 11:12:00 Fabienne [facility] PANEL Center PROTHROMBIN TIME/INR 2022-06-21 11:12:00 Fabienne [facility] CBC W/PLT COUNT & AUTO 2022-06-21 11:12:00 Fabienne [facility] CBC W/PLT COUNT & AUTO 2022-06-21 11:12:00 Fabienne [facility] INSURANCE CORRESPONDENCE 2022-06-21 05:01:00 Doctor Unassigned, [facility] [place] [facility] PHOSPHORUS 2022-06-07 09:16:00 [facility] MAGNESIUM 2022-06-07 09:16:00 [facility] BASIC METABOLIC PANEL 2022-06-07 09:16:00 [facility] (NA, K, CL, CO2, GLUCOSE, Faustino Medica l Branch BUN, CREATININE, CA) PHOSPHORUS 2022-06-05 11:13:00 [facility] Jose Antonio MAGNESIUM 2022-06-05 11:13:00 [facility] Jose Antonio BASIC METABOLIC PANEL 2022-06-05 11:13:00 Prajapati [facility] (NA, K, CL, CO2, GLUCOSE, Rod, Juanpablo Medica l Branch BUN, CREATININE, CA) [place] CBC WITH DIFF 2022-06-05 11:13:00 Prajapati [facility] Jose Antonio PHOSPHORUS 2022-06-05 11:13:00 Prajapati [facility] Jose Antonio MAGNESIUM 2022-06-05 11:13:00 Prajapati [facility] Jose Antonio BASIC METABOLIC PANEL 2022-06-05 11:13:00 Prajapati [facility] (NA, K, CL, CO2, GLUCOSE, Rod, Juanpablo Medica l Branch BUN, CREATININE, CA) [place] CBC WITH DIFF 2022-06-05 11:13:00 [facility] CT THORAX W CONTRAST 2022-06-05 01:36:13 CandiceShimon [facility] CT THORAX W CONTRAST 2022-06-05 01:36:13 [facility] ACTIVATED PARTIAL 2022-06-04 18:00:00 Armando Pandey [facility] ACTIVATED PARTIAL 2022-06-04 18:00:00 Armando Pandey [facility] ACTIVATED PARTIAL 2022-06-04 14:21:00 Ryley Polo [facility] ACTIVATED PARTIAL 2022-06-04 14:21:00 [facility] 2022-06-04 09:32:[address] [facility] XR KUB 2022-06-04 09:32:[address] [facility] XR KUB 2022-06-04 06:45:[address] [facility] XR KUB 2022-06-04 06:45:00 Dannie [facility] HIT - AB 2022-06-04 06:14:00 Dannie [facility] EXTRA SST HOLD FOR ARUP 2022-06-04 06:14:00 [facility] - AB 2022-06-04 06:14:00 Dannie [facility] EXTRA SST HOLD FOR INUP 2022-06-04 06:14:00 [facility] CHEST 1 VW 2022-06-04 05:23:00 Dannie [facility] XR CHEST 1 VW 2022-06-04 05:23:00 Dannie [facility] TROPONIN I 2022-06-04 04:51:00 Dannie [facility] HEPATIC FUNCTION PANEL 2022-06-04 04:51:00 Armando Pandey [facility] ([id number]) (ALB,T.PRO,BILI Medical Branch T,BU/BC,ALT,AST,ALK PHOS) BASIC METABOLIC PANEL 2022-06-04 04:51:00 Dannie, Armando [facility] (NA, K, CL, CO2, GLUCOSE, Medica l Branch BUN, CREATININE, CA) CBC WITH DIFF 2022-06-04 04:51:00 Dannie [facility] ACTIVATED PARTIAL 2022-06-04 04:51:00 [facility]OP[facility] 2022-06-04 04:51:00 Dannie [facility] HEPATIC FUNCTION PANEL 2022-06-04 04:51:00 Dannie Armando [facility] ([id number]) (ALB,T.PRO,BILI Medical Branch T,BU/BC,ALT,AST,ALK PHOS) BASIC METABOLIC PANEL 2022-06-04 04:51:00 Dannie, Armando [facility] (NA, K, CL, CO2, GLUCOSE, Medica l Branch BUN, CREATININE, CA) CBC WITH DIFF 2022-06-04 04:51:00 Dannie [facility] ACTIVATED PARTIAL 2022-06-04 04:51:00 Joseph Doran [facility] HB ECG ROUTINE & RHYTHM 2022-06-04 04:43:15 Armando Pandey [facility] HB ECG ROUTINE & RHYTHM 2022-06-04 04:43:15 Armando Pandey [facility] ACTIVATED PARTIAL 2022-06-03 20:52:00 [facility] ACTIVATED PARTIAL 2022-06-03 20:52:00 [facility] FL TIME OR 2022-06-03 17:21:00 [facility] (NON-REPORTABLE) [facility] Jose Antonio FL TIME OR 2022-06-03 17:21:00 [facility] (NON-REPORTABLE) [facility] [place] ABG+COOX+NA+K+GLU+CA2+ 2022-06-03 16:52:00 [facility] ABG+COOX+NA+K+GLU+CA2+ 2022-06-03 16:52:00 Allan [facility] SURGICAL PATHOLOGY EXAM 2022-06-03 15:42:00 Lawrence Peterson [facility] ABG+COOX+NA+K+GLU+CA2+ 2022-06-03 15:36:00 [facility] ABG+COOX+NA+K+GLU+CA2+ 2022-06-03 15:36:00 Allan [facility] HB ABO GROUPING 2022-06-03 13:05:00 Vishnu Zapien [facility] HB ABO GROUPING 2022-06-03 13:05:00 Vishnu Zapien [facility] INFERIOR VENA CAVA FILTER 2022-06-03 12:00:00 Lawrence Peterson [facility] VENOUS THROMBECTOMY 2022-06-03 12:00:00 Lawrence Peterson [facility] ANGIOPLASTY 2022-06-03 12:00:[address] [facility] VASCULAR STENTING 2022-06-03 12:00:00 Lawrence Peterson [facility] INFERIOR VENA CAVA FILTER 2022-06-03 12:00:00 Lawrence Peterson [facility] VENOUS THROMBECTOMY 2022-06-03 12:00:00 Lawrence Peterson [facility] ANGIOPLASTY 2022-06-03 12:00:[address] [facility] VASCULAR STENTING 2022-06-03 12:00:00 Lawrence Peterson [facility] PHOSPHORUS 2022-06-03 10:34:00 [facility] MAGNESIUM 2022-06-03 10:34:00 [facility] [place] BASIC METABOLIC PANEL 2022-06-03 10:34:00 Prajapati [facility] (NA, K, CL, CO2, GLUCOSE, Rod, Juanpablo Medica l Branch BUN, CREATININE, CA) Jose [place] CBC WITH DIFF 2022-06-03 10:34:00 [facility] [place] ACTIVATED PARTIAL 2022-06-03 10:34:00 Andreea [facility] Branch PHOSPHORUS 2022-06-03 10:34:00 Prajapati [facility] Jose Antonio MAGNESIUM 2022-06-03 10:34:00 Prajapati [facility] Jose Antonio BASIC METABOLIC PANEL 2022-06-03 10:34:00 Prajapati [facility] (NA, K, CL, CO2, GLUCOSE, Rod, Juanpablo Medica l Branch BUN, CREATININE, CA) Jose Antonio CBC WITH DIFF 2022-06-03 10:34:00 [facility] [place] ACTIVATED PARTIAL 2022-06-03 10:34:00 Andreea [facility] ACTIVATED PARTIAL 2022-06-02 22:26:00 [facility] ACTIVATED PARTIAL 2022-06-02 22:26:00 [facility] ACTIVATED PARTIAL 2022-06-02 15:46:00 Andreea [facility] ACTIVATED PARTIAL 2022-06-02 15:46:00 Andreea [facility] PHOSPHORUS 2022-06-02 10:27:00 [facility] [place] MAGNESIUM 2022-06-02 10:27:00 [facility] [place] BASIC METABOLIC PANEL 2022-06-02 10:27:00 Prajapati [facility] (NA, K, CL, CO2, GLUCOSE, Rod, Juanpablo Medica l Branch BUN, CREATININE, CA) Jose [place] CBC WITH DIFF 2022-06-02 10:27:00 [facility] [place] PHOSPHORUS 2022-06-02 10:27:00 [facility] [place] MAGNESIUM 2022-06-02 10:27:00 [facility] [place] BASIC METABOLIC PANEL 2022-06-02 10:27:00 Prajapati [facility] (NA, K, CL, CO2, GLUCOSE, Rod, Juanpablo Medica l Branch BUN, CREATININE, CA) [place] CBC WITH DIFF 2022-06-02 10:27:00 [facility] [place] PHOSPHORUS 2022-06-01 10:05:00 [facility] [place] MAGNESIUM 2022-06-01 10:05:00 [facility] [place] BASIC METABOLIC PANEL 2022-06-01 10:05:00 [facility] (NA, K, CL, CO2, GLUCOSE, Rod, Juanpablo Medica l Branch BUN, CREATININE, CA) Jose [place] CBC WITH DIFF 2022-06-01 10:05:00 [facility] [place] PHOSPHORUS 2022-06-01 10:05:00 [facility] [place] MAGNESIUM 2022-06-01 10:05:00 [facility] [place] BASIC METABOLIC PANEL 2022-06-01 10:05:00 [facility] (NA, K, CL, CO2, GLUCOSE, Rod, Juanpablo Medica l Branch BUN, CREATININE, CA) [place] CBC WITH DIFF 2022-06-01 10:05:00 [facility] [place] PHOSPHORUS 2022-05-31 11:01:00 [facility] [place] MAGNESIUM 2022-05-31 11:01:00 [facility] [place] BASIC METABOLIC PANEL 2022-05-31 11:01:00 [facility] (NA, K, CL, CO2, GLUCOSE, Rod, Juanpablo Medica l Branch BUN, CREATININE, CA) Jose Antonio CBC WITH DIFF 2022-05-31 11:01:00 [facility] [place] PROTHROMBIN TIME / INR 2022-05-31 11:01:00 Juanpablo Salmon [facility] ACTIVATED PARTIAL 2022-05-31 11:01:00 Juanpablo Salmon [facility] THRLAS [facility] FIBRINOGEN 2022-05-31 11:01:00 Ryley Polo [facility] PHOSPHORUS 2022-05-31 11:01:00 [facility] [place] MAGNESIUM 2022-05-31 11:01:00 [facility] Jose Antonio BASIC METABOLIC PANEL 2022-05-31 11:01:00 [facility] (NA, K, CL, CO2, GLUCOSE, Rod, Juanpablo Medica l Branch BUN, CREATININE, CA) Jose [place] CBC WITH DIFF 2022-05-31 11:01:00 [facility] Jose Antonio PROTHROMBIN TIME / INR 2022-05-31 11:01:00 Maurice Gutierrez [facility] ACTIVATED PARTIAL 2022-05-31 11:01:00 Juanpablo Salmon [facility] FIBRINOGEN 2022-05-31 11:01:00 Ryley Polo [facility] PHOSPHORUS 2022-05-31 11:01:00 [facility] [place] MAGNESIUM 2022-05-31 11:01:00 [facility] [place] BASIC METABOLIC PANEL 2022-05-31 11:01:00 [facility] (NA, K, CL, CO2, GLUCOSE, Rod, Juanpablo Medica l Branch BUN, CREATININE, CA) Jose Antonio CBC WITH DIFF 2022-05-31 11:01:00 [facility] Jose Antonio PROTHROMBIN TIME / INR 2022-05-31 11:01:00 Maurice Gutierrez [facility] ACTIVATED PARTIAL 2022-05-31 11:01:00 [facility]ablo [facility] FIBRINOGEN 2022-05-31 11:01:00 Ryley Polo [facility] FL TIME OR 2022-05-31 04:56:00 [facility] (NON-RE[facility]) [facility] FL TIME OR 2022-05-31 04:56:00 Andreea [facility] (NON-REPORTABLE) Medical Branch FL TIME OR 2022-05-31 04:56:00 Andreea [facility] (NON-REPORTABLE) [facility] FIBRINOGEN 2022-05-31 01:26:00 [facility] FIBRINOGEN 2022-05-31 01:26:00 [facility] FIBRINOGEN 2022-05-31 01:26:00 [facility] VENOGRAM 2022-05-31 01:17:00 [facility] VENOGRAM 2022-05-31 01:17:00 [facility] FIBRINOGEN 2022-05-30 21:47:00 [facility] FIBRINOGEN 2022-05-30 21:47:00 [facility] FIBRINOGEN 2022-05-30 21:47:00 [facility] FIBRINOGEN 2022-05-30 18:14:00 [facility] FIBRINOGEN 2022-05-30 18:14:00 [facility] FIBRINOGEN 2022-05-30 18:14:00 [facility] FIBRINOGEN 2022-05-30 18:14:00 [facility] FIBRINOGEN 2022-05-30 15:21:00 [facility] FIBRINOGEN 2022-05-30 15:21:00 [facility] FIBRINOGEN 2022-05-30 15:21:00 [facility] FIBRINOGEN 2022-05-30 15:21:00 [facility] FIBRINOGEN 2022-05-30 13:12:00 [facility] FIBRINOGEN 2022-05-30 13:12:00 [facility] FIBRINOGEN 2022-05-30 13:12:00 [facility] FIBRINOGEN 2022-05-30 13:12:00 [facility] FIBRINOGEN 2022-05-30 11:13:00 [facility] FIBRINOGEN 2022-05-30 11:13:00 [facility] FIBRINOGEN 2022-05-30 11:13:00 [facility] FIBRINOGEN 2022-05-30 11:13:00 [facility] PHOSPHORUS 2022-05-30 09:27:00 [facility] MAGNESIUM 2022-05-30 09:27:00 [facility] BASIC METABOLIC PANEL 2022-05-30 09:27:00 Christ [facility] (NA, K, CL, CO2, GLUCOSE, Medica l Branch BUN, CREATININE, CA) CBC WITH DIFF 2022-05-30 09:27:00 [facility] ACTIVATED PARTIAL 2022-05-30 09:27:00 [facility] FIBRINOGEN 2022-05-30 09:27:00 [facility] PHOSPHORUS 2022-05-30 09:27:00 [facility] MAGNESIUM 2022-05-30 09:27:00 [facility] BASIC METABOLIC PANEL 2022-05-30 09:27:00 Christ [facility] (NA, K, CL, CO2, GLUCOSE, Medica l Branch BUN, CREATININE, CA) CBC WITH DIFF 2022-05-30 09:27:00 [facility] ACTIVATED PARTIAL 2022-05-30 09:27:00 [facility] FIBRINOGEN 2022-05-30 09:27:00 [facility] PHOSPHORUS 2022-05-30 09:27:00 [facility] MAGNESIUM 2022-05-30 09:27:00 [facility] BASIC METABOLIC PANEL 2022-05-30 09:27:00 [facility] (NA, K, CL, CO2, GLUCOSE, Medica l Branch BUN, CREATININE, CA) CBC WITH DIFF 2022-05-30 09:27:00 [facility] ACTIVATED PARTIAL 2022-05-30 09:27:00 [facility] FIBRINOGEN 2022-05-30 09:27:00 [facility] PHOSPHORUS 2022-05-30 09:27:00 [facility] MAGNESIUM 2022-05-30 09:27:00 [facility] BASIC METABOLIC PANEL 2022-05-30 09:27:00 [facility] (NA, K, CL, CO2, GLUCOSE, Medica l Branch BUN, CREATININE, CA) CBC WITH DIFF 2022-05-30 09:27:00 [facility] ACTIVATED PARTIAL 2022-05-30 09:27:00 [facility] FIBRINOGEN 2022-05-30 09:27:00 [facility] FIBRINOGEN 2022-05-30 06:58:00 [facility] FIBRINOGEN 2022-05-30 06:58:00 [facility] FIBRINOGEN 2022-05-30 06:58:00 [facility] FIBRINOGEN 2022-05-30 06:58:00 [facility] ACTIVATED PARTIAL 2022-05-30 06:13:00 [facility] ACTIVATED PARTIAL 2022-05-30 06:13:00 [facility] ACTIVATED PARTIAL 2022-05-30 06:13:00 [facility] ACTIVATED PARTIAL 2022-05-30 06:13:00 [facility] FIBRINOGEN 2022-05-30 04:43:00 Cris [facility] FIBRINOGEN 2022-05-30 04:43:00 Cris [facility] FIBRINOGEN 2022-05-30 04:43:00 Cris [facility] FIBRINOGEN 2022-05-30 04:43:00 Cris [facility] FIBRINOGEN 2022-05-29 23:24:00 [facility] FIBRINOGEN 2022-05-29 23:24:00 [facility] FIBRINOGEN 2022-05-29 23:24:00 [facility] FIBRINOGEN 2022-05-29 23:24:00 [facility] FIBRINOGEN 2022-05-29 21:10:00 [facility] FIBRINOGEN 2022-05-29 21:10:00 Cris [facility] FIBRINOGEN 2022-05-29 21:10:00 Cris [facility] FIBRINOGEN 2022-05-29 21:10:00 Cris [facility] BASIC METABOLIC PANEL 2022-05-29 14:55:00 [facility] (NA, K, CL, CO2, GLUCOSE, Medica l Branch BUN, CREATININE, CA) CBC WITH DIFF 2022-05-29 14:55:[address] [facility] FIBRINOGEN 2022-05-29 14:55:00 Cris, [facility] BASIC METABOLIC PANEL 2022-05-29 14:55:00 Armando Pandey [facility] sity [facility] (NA, K, CL, CO2, GLUCOSE, Medica l Branch BUN, CREATININE, CA) CBC WITH DIFF 2022-05-29 14:55:[address] [facility] FIBRINOGEN 2022-05-29 14:55:00 [facility] BASIC METABOLIC PANEL 2022-05-29 14:55:00 Armando Pandey [facility] sity [facility] (NA, K, CL, CO2, GLUCOSE, Medica l Branch BUN, CREATININE, CA) CBC WITH DIFF 2022-05-29 14:55:[address] [facility] FIBRINOGEN 2022-05-29 14:55:00 Cris [facility] BASIC METABOLIC PANEL 2022-05-29 14:55:00 Dannie Armando [facility] sity [facility] (NA, K, CL, CO2, GLUCOSE, Medica l Branch BUN, CREATININE, CA) CBC WITH DIFF 2022-05-29 14:55:[address] [facility] FIBRINOGEN 2022-05-29 14:55:[address] [facility] FL TIME OR 2022-05-29 14:03:00 Haley Jorge L [facility] (NON-REPORTABLE) [facility] FL TIME OR 2022-05-29 14:03:00 Haley Jorge L [facility] (NON-REPORTABLE) [facility] FL TIME OR 2022-05-29 14:03:00 Haley Jorge L [facility] (NON-REPORTABLE) [facility] FL TIME OR 2022-05-29 14:03:00 Haley Jorge L [facility] (NON-REPORTABLE) [facility] VENOUS THROMBOLYSIS 2022-05-29 12:05:00 Allan Lynch [facility] VENOUS THROMBOLYSIS 2022-05-29 12:05:00 Allan Lynch [facility] MAGNESIUM 2022-05-29 11:11:[address] [facility] BASIC METABOLIC PANEL 2022-05-29 11:11:00 [facility] (NA, K, CL, CO2, GLUCOSE, Medica l Branch BUN, CREATININE, CA) CBC WITHOUT DIFF 2022-05-29 11:11:00 [facility] 2022-05-29 11:11:00 [facility] 2022-05-29 11:11:00 Reyna [facility] BASIC METABOLIC PANEL 2022-05-29 11:11:00 [facility] (NA, K, CL, CO2, GLUCOSE, Medica l Branch BUN, CREATININE, CA) CBC WITHOUT DIFF 2022-05-29 11:11:00 Reyna [facility] ACTIVATED PARTIAL 2022-05-29 11:11:00 [facility] 2022-05-29 11:11:00 Reyna [facility] BASIC METABOLIC PANEL 2022-05-29 11:11:00 Reyna [facility] (NA, K, CL, CO2, GLUCOSE, Medica l Branch BUN, CREATININE, CA) CBC WITHOUT DIFF 2022-05-29 11:11:00 [facility] 2022-05-29 11:11:00 [facility] 2022-05-29 11:11:00 Reyna [facility] BASIC METABOLIC PANEL 2022-05-29 11:11:00 [facility] (NA, K, CL, CO2, GLUCOSE, Medica l Branch BUN, CREATININE, CA) CBC WITHOUT DIFF 2022-05-29 11:11:00 Reyna [facility] ACTIVATED PARTIAL 2022-05-29 11:11:00 Reyna [facility] ABORH CONFIRMATION (LAB 2022-05-28 23:34:00 Lance Neal [facility] ONLY) Medical Branch ABORH CONFIRMATION (LAB 2022-05-28 23:34:00 Lance Neal [facility] ONLY) Medical Branch ABORH CONFIRMATION (LAB 2022-05-28 23:34:00 Lance Neal [facility] ONLY) Medical Branch ABORH CONFIRMATION (LAB 2022-05-28 23:34:00 Lance Neal [facility] ONLY) Medical Branch HB ABO GROUPING 2022-05-28 23:00:00 [facility] HB ABO GROUPING 2022-05-28 23:00:00 [facility] HB ABO GROUPING 2022-05-28 23:00:00 [facility] HB ABO GROUPING 2022-05-28 23:00:00 [facility] ACTIVATED PARTIAL 2022-05-28 22:59:00 Reyna [facility] ACTIVATED PARTIAL 2022-05-28 22:59:00 Reyna [facility] ACTIVATED PARTIAL 2022-05-28 22:59:00 Reyna [facility] ACTIVATED PARTIAL 2022-05-28 22:59:00 Reyna [facility] PROTHROMBIN TIME / INR 2022-05-28 17:23:00 Amber Orellana [facility] ACTIVATED PARTIAL 2022-05-28 17:23:00 [facility] / INR 2022-05-28 17:23:00 Amber Orellana [facility] ACTIVATED PARTIAL 2022-05-28 17:23:00 [facility] PROT[facility] / INR 2022-05-28 17:23:00 Amber Orellana [facility] ACTIVATED PARTIAL 2022-05-28 17:23:00 [facility] PROT[facility]OM[facility] / INR 2022-05-28 17:23:00 Amber Orellana [facility] ACTIVATED PARTIAL 2022-05-28 17:23:00 Amber Orellana [facility] THRMPLAS [facility] BASIC METABOLIC PANEL 2022-05-28 09:09:00 Romario Friedman [facility] (NA, K, CL, CO2, GLUCOSE, Medica l Branch BUN, CREATININE, CA) CBC WITH DIFF 2022-05-28 09:09:00 [facility] LEIDEN 2022-05-28 09:09:00 Winifred [facility] FACTOR 2 [id number] MUTATION 2022-05-28 09:09:00 Liseth Vitale Un [facility] F5 LEIDEN AND F2 [id number] 2022-05-28 09:09:00 Liseth Vitale [facility] BASIC METABOLIC PANEL 2022-05-28 09:09:00 [facility] (NA, K, CL, CO2, GLUCOSE, Medica l Branch BUN, CREATININE, CA) CBC WITH DIFF 2022-05-28 09:09:00 Romario Friedman [facility] FACTOR 5 LEIDEN 2022-05-28 09:09:00 Winifred [facility] FACTOR 2 [id number] MUTATION 2022-05-28 09:09:00 [facility] F5 LEIDEN AND F2 [id number] 2022-05-28 09:09:00 Liseth Vitale [facility] BASIC METABOLIC PANEL 2022-05-28 09:09:00 Romario Friedman [facility] (NA, K, CL, CO2, GLUCOSE, Medica l Branch BUN, CREATININE, CA) CBC WITH DIFF 2022-05-28 09:09:00 [facility] FA[facility] 5 LEIDEN 2022-05-28 09:09:00 Winifrde [facility] FACTOR 2 [id number] MUTATION 2022-05-28 09:09:00 [facility] LEIDEN AND F2 [id number] 2022-05-28 09:09:00 Liseth Vitale [facility] BASIC METABOLIC PANEL 2022-05-28 09:09:00 Romario Friedman [facility] (NA, K, CL, CO2, GLUCOSE, Medica l Branch BUN, CREATININE, CA) CBC WITH DIFF 2022-05-28 09:09:00 Romario Friedman [facility] FACTOR 5 LEIDEN 2022-05-28 09:09:00 [place] [facility] FACTOR 2 [id number] MUTATION 2022-05-28 09:09:00 [facility] F5 LEIDEN AND F2 [id number] 2022-05-28 09:09:00 Liseth Vitale [facility] TRANSTHORACIC ECHO (TTE) 2022-05-27 15:47:00 [facility]AST [facility] TRANSTHORACIC ECHO (TTE) 2022-05-27 15:47:00 Romario Friedman niversity [facility] COMPLETE W/ CONTRAST [facility] TRANSTHORACIC ECHO (TTE) 2022-05-27 15:47:00 [facility] TRANSTHORACIC ECHO (TTE) 2022-05-27 15:47:00 [facility]AST [facility] CT ABDOMEN PELVIS W 2022-05-27 11:28:06 Madelin [facility] CONTRAST [place] ABDOMEN PELVIS W 2022-05-27 11:28:06 Madelin [facility] CONTRAST [place] CT ABDOMEN PELVIS W 2022-05-27 11:28:06 Madelin [facility] CONTRAST [place] ABDOMEN PELVIS W 2022-05-27 11:28:06 Madelin [facility] CONTRAST [facility] [place] BASIC METABOLIC PANEL 2022-05-27 09:45:00 Madelin [facility] (NA, K, CL, CO2, GLUCOSE, Medica l Branch BUN, CREATININE, CA) CBC WITH DIFF 2022-05-27 09:45:00 [facility] [place] GLYCOSYLATED HEMOGLOBIN 2022-05-27 09:45:00 Winifred [facility] (A1C) Medical Branch BASIC METABOLIC PANEL 2022-05-27 09:45:00 [facility] (NA, K, CL, CO2, GLUCOSE, Medica l Branch BUN, CREATININE, CA) CBC WITH DIFF 2022-05-27 09:45:00 [facility] GLYCOS[facility]OGLOBIN 2022-05-27 09:45:00 Winifred [facility] (A1C) Medical Branch BASIC METABOLIC PANEL 2022-05-27 09:45:00 [facility] (NA, K, CL, CO2, GLUCOSE, Medica l Branch BUN, CREATININE, CA) CBC WITH DIFF 2022-05-27 09:45:00 [facility] GLYCOSYLATED HEMOGLOBIN 2022-05-27 09:45:00 Winifred [facility] (A1C) Medical Branch BASIC METABOLIC PANEL 2022-05-27 09:45:00 [facility] (NA, K, CL, CO2, GLUCOSE, Medica l Branch BUN, CREATININE, CA) CBC WITH DIFF 2022-05-27 09:45:00 [facility] [place] GLYCOSYLATED HEMOGLOBIN 2022-05-27 09:45:00 Winifred [facility] (A1C) Medical Branch DUPLEX VENOUS LEGS 2022-05-27 01:08:52 Meche Zapata [facility] BILATERAL - BY VASCULAR Medical Branch LAB DUPLEX VENOUS LEGS 2022-05-27 01:08:52 Meche Zapata [facility] BILATERAL - BY VASCULAR Medical Branch LAB DUPLEX VENOUS LEGS 2022-05-27 01:08:52 Meche Zapata Meme [facility] BILATERAL - BY VASCULAR Medical Branch LAB DUPLEX VENOUS LEGS 2022-05-27 01:08:52 Meche Zapata [facility] BILATERAL - BY VASCULAR [facility] LAB URINE DRUG (IMMUNOASSAY) 2022-05-26 22:13:00 CoriOndina owens [facility] SCREEN URINALYSIS 2022-05-26 22:13:[address] [facility] URINE DRUG (IMMUNOASSAY) 2022-05-26 22:13:00 MadelinOndina [facility] SCREEN URINALYSIS 2022-05-26 22:13:[address] [facility] URINE DRUG (IMMUNOASSAY) 2022-05-26 22:13:00 BlaneOndina mercedes [facility] SCREEN URINALYSIS 2022-05-26 22:13:[address] [facility] URINE DRUG (IMMUNOASSAY) 2022-05-26 22:13:00 MadelinOndina [facility] SCREEN URINALYSIS 2022-05-26 22:13:[address] [facility] HB ECG ROUTINE & RHYTHM 2022-05-26 21:43:55 Meche Zapata [facility] HB ECG ROUTINE & RHYTHM 2022-05-26 21:43:55 Meche Zapata Meme [facility] HB ECG ROUTINE & RHYTHM 2022-05-26 21:43:55 Meche Zapata [facility] HB ECG ROUTINE & RHYTHM 2022-05-26 21:43:55 Meche Zapata [facility] XR CHEST 1 2022-05-26 21:37:[address] [facility] XR CHEST 1 2022-05-26 21:37:[address] [facility] XR CHEST 1 2022-05-26 21:37:[address] [facility] XR CHEST 1 2022-05-26 21:37:[address] [facility] MAGNESIUM 2022-05-26 21:20:[address] [facility] TROPONIN I 2022-05-26 21:20:[address] [facility] COMP. METABOLIC PANEL 2022-05-26 21:20:00 Meche Zapata [facility] ([id number]) [facility] CBC WITH DIFF 2022-05-26 21:20:[address] [facility] N-TERMINAL PRO-BNP 2022-05-26 21:20:00 JodiMeche [facility] MAGNESIUM 2022-05-26 21:20:[address] [facility] TROPONIN I 2022-05-26 21:20:[address] [facility] COMP. METABOLIC PANEL 2022-05-26 21:20:00 Meche Zapata [facility] ([id number]) [facility] Branch CBC WITH DIFF 2022-05-26 21:20:[address] [facility] N-TERMINAL PRO-BNP 2022-05-26 21:20:00 JodiMeche delarosa [facility] MAGNESIUM 2022-05-26 21:20:[address] [facility] TROPONIN I 2022-05-26 21:20:[address] [facility] COMP. METABOLIC PANEL 2022-05-26 21:20:00 Meche Zapata [facility] ([id number]) [facility] CBC WITH DIFF 2022-05-26 21:20:[address] [facility] N-TERMINAL PRO-BNP 2022-05-26 21:20:00 JodiMeche delarosa [facility] MAGNESIUM 2022-05-26 21:20:[address] [facility] TROPONIN I 2022-05-26 21:20:00 Jodi, K Meme [facility] COMP. METABOLIC PANEL 2022-05-26 21:20:00 JodiMeche delarosa [facility] ([id number]) Medical Branch CBC WITH DIFF 2022-05-26 21:20:00 Meche Zapata [facility] o [facility] N-TERMINAL PRO-BNP 2022-05-26 21:20:00 Meche Zapata [facility] [place] HOSPITAL ADMISSION 2022-05-26 05:01:00 Doctor Unassagnes, [facility] [place] [facility] [place] HOSPITAL ADMISSION 2022-05-26 05:01:00 Doctor Unassigned, [facility] [place] [facility] HOSPITAL ADMISSION 2022-05-26 05:01:00 Doctor Unasari, [facility] [place] [facility] [place] XR LUMBAR SPINE 3 VW 2022-05-23 09:47:55 Carlos [facility] DISCLOSURE AND CONSENT, 2022-05-19 05:01:00 Doctor Unasari, [facility] MEDICAL AND SURGICAL [place] [facility] PROCEDURES PATIENT QUESTIONNAIRE 2022-05-17 05:01:00 Doctor Sergo, [facility] [place] [facility] INSURANCE CORRESPONDENCE 2022-05-16 05:01:00 Doctor Tracyssigned, [facility] [place] [facility] INSURANCE CORRESPONDENCE 2022-05-04 05:01:00 Doctor Sergo, [facility] [place] [facility] [place] DME/SUPPLY JUSTIFICATION 2022-04-22 06:01:00 Doctor Tracyssigned, [facility] [place] [facility] [place] [facility] PATIENT FINANCIAL 2022-04-13 15:27:54 Doctor Sergo, [facility] POLICY [place] [facility] SLEEP STUDY DATA REPORT 2022-04-02 06:01:00 Doctor Sergo, [facility] [place] [facility] [place] XR HIPS 2 VW RIGHT 2022-03-24 14:56:12 Susan Manjarrez [facility] MR LUMBAR SPINE WO 2022-03-24 14:41:33 Delroy Farah [facility] CONTRAST [facility] [place] INSURANCE CORRESPONDENCE 2022-02-15 06:01:00 Doctor Sergo, [facility] [place] [facility] [place] EXTERNAL PROVIDER RECORDS 2022-02-03 06:01:00 Doctor Sergo, [facility] [place] [facility] [place] REFERRAL- 2022-01-17 06:01:00 Doctor Unassigned, [facility] REQUEST/RESPONSE [place] [facility] ASSIGNMENT OF BENEFITS 2021-12-08 15:11:38 Doctor Unassigned, Un [facility] [place] [facility] SLEEP STUDY DATA REPORT 2021-11-04 05:01:00 Doctor Unassigned, [facility] [place] [facility] Plan of Care Planned Activity [...] [facility] 23:57:37 (procedure) [code = 012463527] Future Scheduled 2022-07-10 COLONOSCOPY SCREENING [facility] 23:57:37 [code = COLONOSCOPY SCREENING] Future Scheduled 2022-07-10 [facility]:57:37 of 2) [code = SHINGLES VACCINES (1 of 2)] Future Scheduled 2022-07-10 INFLUENZA VACCINE Method [facility] Hospital Test 23:57:37 [code = INFLUENZA VACCINE] Future Scheduled 2022-07-10 COVID-19 VACCINE (#1) [facility] 23:57:37 [code = COVID-19 VACCINE (#1)] Future Scheduled 2022-07-10 Hepatitis C screening [facility] 23:57:37 (procedure) [code = 040792927] Future Scheduled 2022-07-10 [facility]ONOSCOPY SCREENING [facility] 23:57:37 [code = COLONOSCOPY SCREENING] Future Scheduled 2022-07-10 SHINGLES VACCINES (1 [facility] 23:57:37 of 2) [code = SHINGLES VACCINES (1 of 2)] Future Scheduled 2022-07-10 INFLUENZA VACCINE Method [facility] Test 23:57:37 [code = INFLUENZA VACCINE] Future Scheduled 2022-07-10 COVID-19 VACCINE (#1) [facility] Test 23:57:37 [code = COVID-19 VACCINE (#1)] Future Scheduled 2022-07-10 Hepatitis C screening [facility] Test 23:57:37 (procedure) [code = 226100503] Future Scheduled 2022-07-10 [facility]ening [facility] Test 23:57:37 malignant neoplasm of colon (procedure) [code = 169029303] Future Scheduled 2022-07-10 SHINGLES VACCINES (1 [facility] 23:57:37 of 2) [code = SHINGLES VACCINES (1 of 2)] Future Scheduled 2022-07-10 INFLUENZA VACCINE Method [facility] Test 23:57:37 [code = INFLUENZA VACCINE] Future Scheduled 2022-07-03 COVID-19 VACCINE (#1) [facility] Test 23:24:31 [code = COVID-19 VACCINE (#1)] Future Scheduled 2022-07-03 [facility]atitis C [facility] 23:24:31 (procedure) [code = 654580367] Future Scheduled 2022-07-03 [facility]CREENING [facility] 23:24:31 [code = COLONOSCOPY SCREENING] Future Scheduled 2022-07-03 SHINGLES VACCINES (1 [facility] 23:24:31 of 2) [code = SHINGLES VACCINES (1 of 2)] Future Scheduled 2022-07-03 INFLUENZA VACCINE Method ist Hospital Test 23:24:31 [code = INFLUENZA VACCINE] Future Scheduled 2022-05-18 COVID-19 VACCINE (#1) [facility] 20:48:55 [code = COVID-19 VACCINE (#1)] Future Scheduled 2022-05-18 Hepatitis C screening [facility] 20:48:55 (procedure) [code = 132195485] Future Scheduled 2022-05-18 COLONOSCOPY SCREENING [facility] Test 20:48:55 [code = COLONOSCOPY SCREENING] Future Scheduled 2022-05-18 SHINGLES VACCINES (1 [facility] 20:48:55 of 2) [code = SHINGLES VACCINES (1 of 2)] Future Scheduled 2022-05-18 INFLUENZA VACCINE Method [facility] Hospital Test 20:48:55 [code = INFLUENZA VACCINE] Future Scheduled 2022-05-18 COVID-19 VACCINE (#1) [facility] 20:48:55 [code = COVID-19 VACCINE (#1)] Future Scheduled 2022-05-18 Hepatitis C screening [facility] 20:48:55 (procedure) [code = 502876562] Future Scheduled 2022-05-18 COLONOSCOPY SCREENING Me thodist [...] Future Scheduled 2021-10-15 HE[facility] 19:26:49 (1 of 3 - 3-dose series) [code = HEPATITIS B VACCINES (1 of 3 - 3-dose series)] Future Scheduled 2021-10-15 COVID-19 VACCINE (#1) [facility] 19:26:49 [code = COVID-19 VACCINE (#1)] Future Scheduled 2021-10-15 Hep[facility] C screening [facility] Test 19:26:49 (procedure) [code = 679236010] Future Scheduled 2021-10-15 COLONOSCOPY SCREENING Me thodist [...] series)] Future Scheduled 2021-10-12 COVID-19 VACCINE (#1) [facility] Test 17:47:43 [code = COVID-19 VACCINE (#1)] Future Scheduled 2021-10-12 Hepatitis C screening [facility] Test 17:47:43 (procedure) [code = 405962544] Future Scheduled 2021-10-12 COLONOSCOPY SCREENING [facility] Test 17:47:43 [code = COLONOSCOPY SCREENING] Future Scheduled 2021-10-12 SHINGLES VACCINES (1 [facility] Test 17:47:43 of 2) [code = SHINGLES VACCINES (1 of 2)] Future Scheduled 2021-10-12 INFLUENZA VACCINE [facility] Test 17:47:43 [code = INFLUENZA [...] [facility] s Test 00:00:00 (procedure) [code = [facility] 11434403] Future Scheduled [address] [facility] Test 00:[facility]:00 (procedure) [code = [facility] 62110764] Future Scheduled 1981 DTAP/TDAP/TD VACCINES [facility] [...] [facility] Center colon (procedure) [code = 189985045] Future Scheduled [address] [facility] 00:[facility]00 [facility] colon (procedure) [code = 675700942] Future Scheduled [address] [facility] Test 00:[facility]:00 [facility] colon (procedure) [code = 546886329] Future Scheduled [address] [facility] Test 00:00:00 [facility] colon (procedure) [code = 734730770] Future Scheduled 1962 Sigmoidoscopy [facility] Cent[facility] r Future Scheduled [address] [facility] Test 00:00:00 (combo) [code = CT Medical C enter Colonography (combo)] Future Scheduled [address] [facility] Test 00:00:00 malignant [facility] colon (procedure) [code = 637269923] Future Scheduled [address] [facility] [facility] Test 00:00:00 malignant [facility] colon (procedure) [code = 347936304] Future Scheduled [address] [facility] Test 00:00:00 malignant [facility] colon (procedure) [code = 478637017] Future Scheduled [address] [facility] [facility] Test 00:00:00 malignant [facility] colon (procedure) [code = 306310665] Future Scheduled 1962 Sigmoidoscopy [facility] Medical Cente r Encounters Start End Encounter Admission Attending Care Care Encounter Source Date/Time Date/Time Type Type Clinicians Facility Department ID 2022-06-11 Outpatient 3 [id number] [place] [id number] [facility] 03:48:38 [facility] [place] 2022-06-10 Outpatient 3 [id number] [place] [id number] [facility] 02:10:29 [facility] [place] 2022-06-09 Outpatient 3 [id number] [place] [id number] [facility] 10:37:19 04[facility] [place] 2022-06-01 Outpatient R IZABELA PHAM [facility] TIFFANY [id number] [facility] 14:27:32 IZABELA PHAM [facility] [facility] 2022-06-01 Outpatient [id number] ENCPL REF [phone] [facility]compa 12:13:29 0419 Health Rehabil itation [place] 2020-12-14 Emergency [facility] [id number] Univers 03:38:[address] [facility] 2020-12-14 Emergency [facility] [id number] Univers 02:28:[address] [facility] 2020-12-14 Emergency [facility] [id number] Univers 02:03:[address] [facility] 2020-12-13 Emergency [facility] [id number] Univers 15:19:[address] [facility] 2020-02-02 Inpatient [facility] [id number] [facility] 19:02:00 2020-02-02 Inpatient [facility] [id number] [facility] 19:02:00 2022-09-15 2022-09-15 Outpatient R LAWRENCE PETERSON [facility] 1 [id number] Univers 10:00:00 10:00:00 [facility]22-08-[facility] 2022-08-03 Outpatient R ENMANUELANJUM [facility] [id number] Univers 10:15:00 10:15:[address] [facility] 2022-07-18 2022-07-18 Transition ANASTASIIA Calderon 1.2.840.114 [id number] Univers 00:00:00 00:00:00 of Care Elyssa BENNETT 350.1.13.10 i ty of [place] [id number] [facility] [address] 2022-07-16 2022-07-16 Outpatient U LAWRENCE PETERSON [facility] 1 [id number] Univers 09:11:00 12:30:[address] [facility] 2022-07-16 2022-07-16 Hospital PetersonELIASE 1.2.840.114 [id number] Univers 09:11:00 12:30:00 Encounter Lawrence BEARD 350.1.13.10 ity [facility] 4.2.7.2.686 Neal as [id number] [facility] [address] 2022-07-12 2022-07-12 Inpatient ER ROMARIO [facility] Medical ICU [id number] [facility] 04:02:00 14:55:00 ELLE 2022-07-11 2022-07-11 Emergency [facility] [id number] Univers 10:09:00 11:10:[address] [facility] 2022-07-11 2022-07-11 Emergency [facility] ERT [id number] Univers 10:09:00 11:10:00 ANA [facility] 2022-07-11 2022-07-11 Emergency Jalanre, TRAUMA 1.2.195.525 [id number] Univers 10:09:00 11:10:00 Justen [place] 350.1.13.10 it [place] [id number] [facility] [address] 2022-07-11 2022-07-11 Emergency X NANCY [facility] ERT [id number] Univers 04:26:00 07:38:[address] [facility] 2022-07-11 2022-07-11 Emergency Trevor, Ángel Deidre TRAUMA 1.2. 840.114 [id number] Univers 04:26:00 07:38:00 Ramana Cruz [facility] 350.1.13 .10 it[place] [id number] [facility] [address] 2022-07-11 2022-07-11 Emergency [facility] 1.2.689.408 [id number] Univers 00:22:00 00:26:00 BEL[place] 350.1.13.10 i ty of [place] [id number] [facility] [address] 2022-07-08 2022-07-08 Emergency X [facility] ERT [id number] Univers 13:26:00 13:45:00 ity of [facility] 2022-07-08 2022-07-08 Emergency TRAUMA 1.2.317.629 [id number] Univers 13:26:00 13:45:00 [place] 350.1.13.10 it [place] [id number] [address] 2022-07-05 2022-07-05 Outpatient Zeke BECERRIL [facility] [id number] Univers 14:30:00 14:30:00 ROBINA [facility] 2022-07-05 2022-07-05 Outpatient Zeke BECERRIL [facility] [id number] Univers 14:30:00 14:30:00 ROBINA [facility] 2022-07-05 2022-07-05 Emergency [facility] ERT [id number] Univers 05:53:00 11:12:00 TRACEY [facility] 2022-07-05 2022-07-05 Emergency Hilda Miller TRAUMA 1.2.840 .114 [id number] Univers 05:53:00 11:12:00 Tracey Trinidad [place] 350.1.13.10 it[place] [id number] [facility] [address] 2022-07-04 2022-07-04 Emergency [facility] 1.2.826.598 [id number] Univers 14:13:00 14:19:00 [place] 350.1.13.10 i ty of [place].7.2.686 [place] [id number] [facility] [address] 2022-07-04 2022-07-04 [facility] [id number] Univers 14:00:00 14:00:00 [facility] 2022-07-04 2022-07-04 Outpatient [facility] ERT [id number] Univers 14:00:00 14:00:00 [facility] 2022-07-04 2022-07-04 Telephone [facility] 1.2.840.114 [id number] Univers 00:00:00 00:00:[address] [facility] 350.1.13.10 it y of [place] 4.2.7.2.686 Neal as JOEL?BLEA [id number] [address] [facility] 2022-07-04 2022-07-04 Refill [facility] 1.2.840.114 [id number] Univers 00:00:00 00:00:00 Robina [facility] 350.1.13.10 it y of [place] 4.2.7.2.686 Neal as JOEL?BLEA [id number] [address] MEDICAL OFFICE [facility] 2022-06-28 2022-06-28 Telephone [facility] 1.2.353.673 [id number] Univers 00:00:00 00:00:00 [facility] 350.1.13.10 i ty of [place] [id number] [place] [address] [address] OFFICE BUILDING 2022-06-27 2022-06-27 Outpatient R IZABELA PHAM [facility] [id number] Univers 13:15:00 13:15:00 IZABELA PHAM [facility] 2022-06-21 2022-06-23 [facility] Sunny Alfonso [facility] 1 [id number] [facility] 08:54:00 18:00:00 Encounter Olga Abraham, [facility] 2022-06-21 2022-06-23 Inpatient ER RHETT MOORE Oncology [id number] [facility] 08:54:00 18:00:00 [facility] 2022-06-22 2022-06-22 Telephone [facility] 1.2.840.114 [id number] Univers 00:00:00 00:00:[address] [facility] 350.1.13.10 it y of [facility] 4.2.7.2.686 Neal as JOEL?BLEA [id number] [address] MEDICAL OFFICE BUILDING 2022-06-21 2022-06-21 Orders Doctor LAKESHIA 1.2.840.114 [id number] Univers 00:00:00 00:00:00 Only Unassigned, CHIRAG 350.1.13.10 ity of [place] [facility] 4.2.7.2.686 Neal as [id number] [address] 2022-06-17 2022-06-17 Telephone [facility] 1.2.840.114 [id number] Univers 00:00:00 00:00:[address] [facility] 350.1.13.10 it y of [place] 4.2.7.2.686 Neal as JOEL?BLEA [id number] [address] OFFICE BUILDING 2022-06-16 2022-06-16 Office Donna [facility] 1.2.840.114 [id number] Univers 11:30:00 11:45:00 Visit [facility] 350.1.13.10 i ty of [place] [id number] [address] OFFICE BUILDING 2022-06-16 2022-06-16 Outpatient R LAWRENCE PETERSON [facility] 1 [id number] Univers 11:30:00 11:30:00 LAWRENCE PETERSON ity of [facility] 2022-06-16 2022-06-16 Telephone Donna [facility] 1.2.671.355 [id number] Univers 00:00:00 00:00:00 [facility] 350.1.13.10 i ty of [place] [id number] [address] OFFICE BUILDING 2022-06-14 2022-06-14 Telephone Donna [facility] 1.2.344.725 [id number] Univers 00:00:00 00:00:00 Lawrence [facility] 350.1.13.10 i ty of [place].2.[place] [id number] [address] OFFICE BUILDING 2022-06-08 2022-06-08 Telephone LAKESHIA Pham 1.2.518.058 [id number] Univers 00:00:00 00:00:00 Izabela BEARD 350.1.13.10 i ty of [facility] 4.2.7.2.686 Neal as [id number] [facility] [address] 2022-06-08 2022-06-08 Transition ANASTASIIA Calderon 1.2.840.114 10 [id number] Univers 00:00:00 00:00:00 of Care Elyssa Lawson BENNET[place] 350.1.13.10 i [place] [id number] [facility] [address] 2022-05-26 2022-06-07 In[facility] [id number] Univers 15:42:00 15:09:[address] [facility] 2022-05-26 2022-06-07 [facility] Meche Zapata 1.2.840.1 14 [id number] Univers 15:42:00 15:09:00 Encounter Luis Huerta 350.1.13.10 ity of [facility] 4.2.7.2.686 Lance Swift [id number] Medical Allan Lynch [address] 2022-06-07 2022-06-07 Outpatient [facility] [id number] Univers 13:00:00 13:00:[address] [facility] 2022-06-03 2022-06-03 Surgery TYE Peterson 1.2.840.114 [id number] Univers 07:00:00 09:33:00 Lawrence BEARD 350.1.13.10 i ty of [facility] 4.2.7.2.686 Neal as [id number] [address] 2022-06-02 2022-06-02 Telephone Vero CONEDA 1.2.939.551 [id number] Univers 00:00:00 00:00:00 Izabela SHAN 350.1.13.10 ity of [place] [id number] Wy edison ARENAS 188 [facility] 2022-06-01 2022-06-01 Telephone Jerrica [facility] 1.2.840.114 [id number] Univers 00:00:00 00:00:[address] [facility] 350.1.13.10 it y of José Miguel [place] 4.2.7.2.686 Neal as JOEL?BLEA [id number] Wy edison RAOEY [address] MEDICAL OFFICE BUILDING 2022-05-30 2022-05-30 Surgery TYE Lynch 1.2.840.114 [id number] Univers 20:00:00 22:46:00 Allan CHIRAG 350.1.13.10 it y of [facility] 4.2.7.2.686 Neal as [id number] [address] 2022-05-29 2022-05-29 Surgery TYE Lynch 1.2.840.114 [id number] Univers 07:20:00 10:33:00 Allan CHIRAG 350.1.13.10 it y of HOSPITAL 4.2.7.2.686 [place] as [id number] [address] 2022-05-26 2022-05-26 Outpatient R JERRICA [facility] [id number] Univers 09:45:00 09:45:00 ROBINA [facility] 2022-05-24 2022-05-24 Outpatient R ROGER [facility] [id number] Univers 00:00:00 00:00:[address] [facility] 2022-05-24 2022-05-24 [facility] 1.2.840.114 [id number] Univers 00:00:00 00:00:00 Surgery [facility] 350.1.13.10 ity of [place].2.686 [place] [facility] [id number] Wy alpaletty ARENAS [address] [facility] 2022-05-23 2022-05-23 Emergency X IBIKUN, [facility] ERT [id number] Univers 16:40:00 18:12:[address] [facility] 2022-05-23 2022-05-23 Emergency X IBIKUN, [facility] ERT [id number] Univers 16:40:00 18:12:[address] [facility] 2022-05-23 2022-05-23 [facility] 1.2.840.114 10 [id number] Univers 16:40:00 18:12:00 [facility] [place] 350.1.13.10 ity of [place].2.[place] [id number] [address] 2022-05-23 2022-05-23 Emergency Critical access hospital 1.2.175.829 [id number] Univers 03:49:00 06:12:00 Carlos Fontaine [facility] 350.1.13.10 ity of [place].7.2.[place] [id number] [address] 2022-05-23 2022-05-23 [facility] 1.2.840.114 [id number] Univers 00:00:00 00:00:[address] [facility] 350.1.13.10 it y of José Miguel [place] 4.2.7.2.686 Neal as JOEL?BLEA [id number] Wy alpaletty LOAIZA [address] MEDICAL OFFICE [facility] 2022-05-19 2022-05-19 Outpatient R VERO [facility] [id number] Univers 09:30:00 10:37:40 IZABELA PHAM [facility] 2022-05-19 2022-05-19 Office [facility] 1.2.840.114 [id number] Univers 09:30:00 10:37:40 Visit Izabela SHAN 350.1.13.10 ity of [place] [phone] Wy dical DEEPA 188 [facility] 2022-05-19 2022-05-19 Orders Doctor LAKESHIA 1.2.840.114 [id number] Univers 00:00:00 00:00:00 Only Unassigned, CHIRAG 350.1.13.10 ity of [place] [facility] 4.2.7.2.686 Neal as [id number] [address] 2022-05-17 2022-05-17 Outpatient R ROGER [facility] [id number] Univers 08:00:00 08:57:[address] [facility] 2022-05-17 2022-05-17 Orders Doctor LAKESHIA 1.2.840.114 [id number] Univers 00:00:00 00:00:00 Only Unassigned, CHIRAG 350.1.13.10 ity of [place] [facility] 4.2.7.2.686 Neal as [id number] [address] 2022-05-16 2022-05-16 Orders Doctor LAKESHIA 1.2.840.114 [id number] Univers 00:00:00 00:00:00 Only Unassigned, CHIRAG 350.1.13.10 ity of [place] [facility] 4.2.7.2.686 Neal as [id number] [address] 2022-05-05 2022-05-05 Outpatient R JERRICA [facility] [id number] Univers 10:00:00 10:00:[address] [facility] 2022-05-05 2022-05-05 Telephone [facility] 1.2.840.114 [id number] Univers 00:00:00 00:00:[address] [facility] 350.1.13.10 it y of José Miguel TORREZ 4.2.7.2.686 Neal as JOEL?BLEA [id number] Wy edison JALENEY [address] [facility] 2022-05-04 2022-05-04 Orders Doctor LAKESHIA Pastrana2.840.114 [id number] Univers 00:00:00 00:00:00 Only Unassigned, CHIRAG 350.1.13.10 ity of [place] [facility] 4.2.7.2.686 Neal as [id number] [address] 2022-05-03 2022-05-03 Office [facility] 1.2.840.114 [id number] [facility] 09:45:00 10:15:[address] [facility] 350.1.13.10 it y of José Miguel [facility] 4.2.7.2.686 Neal as JOEL?BLEA [id number] [address] [facility] 2022-05-03 2022-05-03 Outpatient [facility] [id number] [facility] 09:45:00 09:45:00 ROBINA [facility] 2022-04-22 2022-04-22 Orders Doctor ASHER 1.2.840.114 [id number] Univers 00:00:00 00:00:00 Only Unassigned, CHIRAG 350.1.13.10 ity of [place] [facility] 4.2.7.2.686 Neal as [id number] [address] 2022-04-22 2022-04-22 Telephone [facility] 1.2.840.114 10 [id number] Univers 00:00:00 00:00:00 Strahil Jeronimo RICETON 350.1.13.10 ity of [facility] 4.2.7.2.[place] [id number] [address] 2022-04-13 2022-04-13 Office [facility] 1.2.896.739 [id number] Univers 09:30:00 10:00:00 Visit Strarayol Jeronimo TORREZ 350.1.13.10 ity of [facility] 4.2.7.2.[place] [id number] [address] 2022-04-13 2022-04-13 Outpatient R DAWSON CHOUDHURY [facility] [id number] Univers 09:30:00 09:30:[address]irit [facility] 2022-04-13 2022-04-13 Orders Doctor LAKESHIA 1.2.840.114 [id number] Univers 00:00:00 00:00:00 Only Unassigned, CHIRAG 350.1.13.10 ity of [place] [facility] 4.2.7.2.686 Neal as [id number] [facility] [address] 2022-04-13 2022-04-13 Telephone [facility] 1.2.840.114 10 [id number] Univers 00:00:00 00:00:00 Dawson Decker MULTISPEC 350.1.13.10 ity of [place].2.686 [place] [id number] [facility] AND JONAH [address] [facility] 2022-04-07 2022-04-07 Office [facility] 1.2.840.114 [id number] [facility] 10:30:00 11:02:[address] [facility] 350.1.13.10 it y of José [place] TORREZ 4.2.7.2.686 Neal as JOEL?BLEA [id number] [address] MEDICAL OFF[facility] 2022-04-07 2022-04-07 Outpatient [facility] [id number] [facility] 10:30:00 10:30:[address] [facility] 2022-04-06 2022-04-06 Telephone [facility] 1.2.840.114 [id number] [facility] 00:00:00 00:00:[address] [facility] 350.1.13.10 it y of José [place] TORREZ 4.2.7.2.686 Neal as JOEL?BLEA [id number] [address] MEDICAL OFFICE BUILDING 2022-04-02 2022-04-02 [employer] 1, [facility] Sleep Lab Bed [facility] 1. 2.840.114 [id number] Univers 20:00:00 22:30:00 Visit Dawson Choudhury 350.1.13. 10 ity of [place].7.2.686 [place] [id number] [facility] [address] 2022-04-02 2022-04-02 Outpatient R DAWSON CHOUDHURY [facility] [id number] Univers 20:00:00 20:00:00 DAWSON CHOUDHURY ity of [facility] 2022-04-02 2022-04-02 Orders Doctor LAKESHIA 1.2.840.114 [id number] Univers 00:00:00 00:00:00 Only Unassigned, CHIRAG 350.1.13.10 ity of [place] [facility] 4.2.7.2.686 Neal as [id number] [facility] [address] 2022-03-24 2022-03-24 [facility] 1.2.840.114 10 [id number] Univers 08:01:23 23:59:00 Encounter [place] 350.1.13.10 ity of [facility] 4.2.7.2.686 [place] [facility] [id number] [facility] [address] 2022-03-24 2022-03-24 [facility] [id number] Univers 07:57:08 08:00:00 DELROY ity of [facility] 2022-03-24 2022-03-24 [facility] 1.2.840.114 [id number] Univers 07:57:08 08:00:00 Encounter Delroy TORREZ 350.1.13.10 ity of [facility] 4.2.7.2.686 [facility] [id number] [facility] [address] 2022-02-16 2022-02-16 [facility] 1.2.840.114 [id number] Univers 00:00:00 00:00:[address] [facility] 350.1.13.10 it y of [place] [facility] 4.2.7.2.686 Neal as JOEL?BLEA [id number] [address] MEDICAL OFFICE BUILDING 2022-02-15 2022-02-15 Orders Doctor LAKESHIA 1.2.840.114 [id number] Univers 00:00:00 00:00:00 Only Unassigned, CHIRAG 350.1.13.10 ity of [place] [facility] 4.2.7.2.686 Neal as [id number] [facility] [address] 2022-02-03 2022-02-03 Orders Doctor LAKESHIA 1.2.840.114 [id number] Univers 00:00:00 00:00:00 Only Unassigned, CHIRAG 350.1.13.10 ity of [place] [facility] 4.2.7.2.686 Neal as [id number] [address] 2022-02-02 2022-02-02 Office [facility] 1.2.840.114 [id number] Univers 09:30:00 09:45:[address] [facility] 350.1.13.10 it y of [place] 4.2.7.2.686 Neal as JOEL?BLEA [id number] [address] OFFICE BUILDING 2022-02-02 2022-02-02 Outpatient R [facility] [id number] Univers 09:30:00 09:40:22 [facility] 2022-01-17 2022-01-17 Orders Doctor ASHER 1.2.840.114 [id number] Univers 00:00:00 00:00:00 Only Unassigned, CHIRAG 350.1.13.10 ity of [place] [facility] 4.2.7.2.686 Neal as [id number] [address] 2022-01-03 2022-01-03 Office [facility] 1.2.840.114 [id number] [facility] 09:15:00 09:30:[address] [facility] 350.1.13.10 it y of [place] 4.2.7.2.686 Neal as JOEL?BLEA [id number] [address] [facility]ICE [facility] 2022-01-03 2022-01-03 Outpatient R [facility] [id number] Univers 09:15:00 09:15:00 [facility] 2021-12-08 2021-12-08 Office [facility] 1.2.852.197 [id number] Univers 10:20:00 10:40:00 Visit Dawson Decker DWAYNETON 350.1.13.10 ity of [place].2.7.2.686 [place] [id number] Wy dical DEEPA [address] [facility] 2021-12-08 2021-12-08 Outpatient R BONIMARYLIN PÉRZEL [facility] [id number] Univers 10:20:00 10:20:[address]irit [facility] 2021-12-08 2021-12-08 Outpatient R BONIDAWSON PÉREZ [facility] [id number] Univers 10:20: 10:20:[address] itkirit [facility] 2021-12-08 2021-12-08 Orders Doctor LAKESHIA 1.2.840.114 [id number] Univers 00:00:00 00:00:00 Only Unassigned, CHIRAG 350.1.13.10 [facility] 4.2.7.2.686 Neal as [id number] [address] 2021-12-02 2021-12-02 Office Jerrica [facility] 1.2.840.114 [id number] Univers 11:00:00 11:15:[address] [facility] 350.1.13.10 it y of José [place] TORREZ 4.2.7.2.686 Neal as JOEL?BLEA [phone] Wy alpaletty LOAIZA [address] [place] [address] MEDICAL OFFICE BUILDING 2021-12-02 2021-12-02 Outpatient R JERRICA [facility] [id number] Univers 11:00:00 11:00:[address] [facility] 2021-11-25 2021-11-25 Outpatient R MACEYBINUSINGH [facility] [id number] Univers 20:00:00 20:00:00 BONISANGITAJALEELMARYLINL itkirit [facility] 2021-11-22 2021-11-22 Outpatient R MACEYMARYLINLawson [facility] [id number] Univers 10:15:00 10:15:00 BONISANGITAJALEELMARYLINL itkirit [facility] 2021-11-04 2021-11-04 [employer], [facility] Sleep Lab [facility] 1.2 .840.114 [id number] Univers 10:00:00 10:15:00 Visit Dawson Choudhury 350.1.13. 10 [id number] [id number] [facility] [address] 2021-11-04 2021-11-04 Outpatient R DAWSON CHOUDHURY [facility] [id number] Univers 10:00:00 10:00:00 DAWSON CHOUDHURY ity [facility] 2021-11-04 2021-11-04 Orders Doctor LAKESHIA 1.2.840.114 [id number] Univers 00:00:00 00:00:00 Only Unassigned, CHIRAG 350.1.13.10 ity of [place] [facility] 4.2.7.2.686 Neal as [phone] [facility] [address] 2021-11-02 2021-11-02 Outpatient R JERRICA [facility] [id number] Univers 09:30:00 10:02:11 ROBINA [facility] 2021-11-02 2021-11-02 Office [facility] 1.2.840.114 [id number] Univers 09:30:00 09:45:[address] [facility] [id number] it y of [place] 4.2.7.2.686 Neal as JOEL?BLEA [phone] [address] MEDICAL OFFICE BUILDING 2021-11-02 2021-11-02 [facility] 1.2.840.114 [id number] Univers 00:00:00 00:00:00 [facility] 350.1.13.10 [place] [id number] [facility] AND JONAH [address] [facility] 2021-10-07 2021-10-07 Telephone [facility] 1.2.840.114 [id number] Univers 00:00:00 00:00:[address] [facility] [id number] it y of [place] 4.2.7.2.686 Neal as JOEL?BLEA [phone] [address] MEDICAL OFFICE BUILDING 2021-10-05 2021-10-05 Outpatient R JERRICA [facility] [id number] Univers 14:15:00 14:43:53 ROBINA [facility] 2021-10-05 2021-10-05 [facility] 1.2.840.114 [id number] Univers 14:15:00 14:30:[address] [facility] [id number] it y of José Miguel TORRE[place] 4.2.7.2.686 Neal as JOEL?BLEA [phone] Wy alpaletty JALENEY 044 [facility] OFFICE BUILDING 2021-10-05 2021-10-05 [facility] [id number] Univers 14:15:00 14:15:00 ROBINA [facility] 2021-09-22 2021-09-22 [facility] [id number] Univers 13:40:00 14:00:00 Visit Dawson TORREZ 350.1.13.10 ity of [place] [place]7.2.686 [place] [phone] [place] ARENAS 085 [facility] 2021-09-22 2021-09-22 Outpatient R MACEY [facility] [id number] Univers 13:40:00 13:40:00 [facility] 2021-09-22 2021-09-22 Outpatient R MACEY [facility] [id number] Univers 13:40:00 13:40:00 [facility] 2021-09-21 2021-09-21 Letter LAKESHIA Morales 1.2.840.114 [id number] Univers 00:00:00 00:00:00 (Out) Erma Decker CHIRAG 350.1.13.10 it y of [facility] 4.2.7.2.686 Neal as [id number] [address] 2021-09-20 2021-09-20 Outpatient R JOEL [facility] [id number] Univers 15:00:00 15:33:41 MAGDALENE hooks o f [facility] 2021-09-20 2021-09-20 Urgent Magdalene Maldonado [facility] 1.2.840. 114 [id number] Univers 15:00:00 15:33:41 Care Joe Post [facility] 350.1.13.10 ity of [place] 4.2.7.2.686 Neal as JOEL?BLEA [phone] [facility] [address] [facility] 2021-09-20 2021-09-20 Outpatient R JOEL [facility] [id number] Univers 15:00:00 15:33:41 MAGDALENE ity o f [facility] 2021-09-15 2021-09-15 Outpatient R [facility] [id number] Univers 11:15:00 11:37:11 ROBINA [facility] 2021-09-15 2021-09-15 Office [facility] 1.2.840.114 [id number] Univers 11:15:00 11:30:[address] [facility] 350.1.13.10 it y of [facility] 4.2.7.2.686 [place] as JOEL?BLEA [phone] [address] [facility] 2021-09-15 2021-09-15 Outpatient R [facility] [id number] Univers 11:15:00 11:15:00 ROBINA [facility] 2021-06-30 2021-06-30 Orders Doctor LAKESHIA 1.2.840.114 [id number] Univers 00:00:00 00:00:00 Only Unassigned, CHIRAG 350.1.13.10 ity of [place] [facility] 4.2.7.2.686 Neal as [id number] [address] 2021-05-24 2021-05-24 Telephone [facility] 1.2.840.114 [id number] Univers 00:00:00 00:00:[address] [facility] 350.1.13.10 it y of [place] 4.2.7.2.686 Neal as JOEL?BLEA [phone] [address] [facility] 2021-05-11 2021-05-11 [facility] [id number] Univers 11:45:00 11:45:00 ROBINA [facility] 2021-03-31 2021-04-02 Emergency Shamir CORBIN [facility] ERT [id number] Univers 09:05:00 07:46:[address] [facility] 2021-03-31 2021-04-02 Emergency Ladonna Bryant [facility] 1.2.8 40.114 [id number] Univers 09:05:00 07:46:00 Carlos CorbinDAVIDE 350.1.13.10 ity [facility] 4.2.7.2.686 [facility] [id number] [address] 2020-12-21 2020-12-21 Emergency X ROSETTA [facility] ERT [id number] Univers 12:12:00 16:04:[address] [facility] 2020-12-21 2020-12-21 [facility] 1.2.497.697 [id number] Univers 12:12:00 16:04:00 Michael Fontaine SHAN 350.1.13.10 i ty of [place] 4.2.7.2.686 [facility] [id number] [address] 2020-12-10 2020-12-10 Outpatient Zeke BECERRIL [facility] [id number] Univers 09:00:00 09:00:[address] [facility] 2020-12-08 2020-12-08 [facility] 1.2.644.570 [id number] Univers 05:45:00 08:15:00 Carlos Fontaine Shan 350.1.13.10 ity [facility] 4.2.7.2.686 [facility] [id number] [address] 2020-12-08 2020-12-08 Emergency X EMERALD [facility] ERT [id number] Univers 05:45:00 08:15:[address] [facility] 2020-11-10 2020-11-10 Outpatient [facility] [id number] Univers 13:10:00 13:10:[address] [facility] 2020-11-10 2020-11-10 [facility] [id number] Univers 09:30:00 10:05:31 ROBINA ity of [facility] 2020-11-10 2020-11-10 Office Jerrica [facility] 1.2.840.114 [id number] Univers 09:22:11 09:52:11 Visit Robina [facility] 350.1.13.10 it y of José Miguel Torrez 4.2.7.2.686 [place] as Joel?Blea [phone] [address] Medical Office Building 2020-09-19 2020-09-19 Outpatient [facility] 456 997- Alfred 03:24:00 03:24:00 E_MD_ 91386 Medica l [facility] 2020-09-04 2020-09-04 Orders Doctor ASHER 1.2.840.114 [id number] Univers 00:00:00 00:00:00 Only Unassigned, CHIRAG 350.1.13.10 ity of [place] [facility] 4.2.7.2.686 Neal as [phone] [address] 2020-08-22 2020-08-22 Outpatient [facility] 456 997- Lakeisha 05:19:00 05:19:00 E_MD_ 67595 Medica l Group 2020-08-17 2020-08-17 Outpatient Zkee LOPEZ [facility] [id number] [facility] 09:00:00 09:00:00 WONDIFUL ity o f [facility] 2020-08-06 2020-08-07 Hospital Edgard Leo 1.2.840.1 14 [id number] Univers 13:41:00 23:00:00 Encounter Magali Curtis 350.1.13.10 ity of [facility] 4.2.7.2.686 [place] as [id number] [facility] [address] 2020-08-03 2020-08-05 Emergency Ted Lion 1.2.840. 114 [id number] Univers 08:54:00 16:11:00 Allen Maravilla 350.1.13.10 ity of Georgina Duncan [facility] 4.2.7.2 .686 [place] [id number] [facility] [address] 2020-07-31 2020-07-31 Emergency Manny, [facility] 1.2.840.114 [id number] [facility] 08:39:00 14:39:00 Ladonna Torrez 350.1.13.10 ity of [place] 4.2.7.2.686 [facility] [id number] [facility] [address] 2020-07-25 2020-07-25 [facility] 456 997- Alfred 06:29:00 06:29:00 E_MD_ 60248 Medica l Group 2020-07-24 2020-07-24 Outpatient [facility] 456 997 [place] 11:00:00 11:00:00 E__ 96956 Medica l Group 2020-06-08 2020-06-08 Emergency Lion, [facility] [id number] [id number] [facility] 13:48:00 17:01:00 Ted Torrez 350.1.13.10 i ty of [place] 4.2.7.2.686 [facility] [phone] [facility] [address] 2020-01-28 2020-01-28 Outpatient JAM, [facility] [id number] [address] [place] [address] 00:00:00 00:00:00 [facility] 2020-01-20 2020-01-20 Outpatient EGBULE, [facility] [id number] [place] 11:36:00 16:26:30 [facility] 2019-10-29 2019-10-31 Inpatient [facility] [id number] [place] [address] 00:00:00 00:00:00 YASMINE 164 [facility] 2019-03-12 2019-03-12 [facility], TDJ 1.2.840.114 [id number] [facility] 14:43:00 23:59:00 Encounter [facility] 350.1.13.10 ity of 4.[address] [place] [address] [id number] [facility] [address] 2019-03-11 2019-03-12 [facility] [place], [facility] 1.2.840.114 [id number] [facility] 15:17:00 17:21:00 Encounter [facility] 350.1.13.10 [place] [id number] [facility] [address] 2019-03-11 2019-03-12 Office Surgery, [facility] 1.2.8 40.114 [id number] Univers 09:09:17 08:54:29 Visit Sofia Malone [facility] 350.1.13.10 ity of [place] 4.2.7.2.686 [place] [phone] [facility] [address] 2018-10-31 2018-10-31 Office Surgery, [facility]DC[facility] 1.2. 840.114 [id number] Univers 08:41:29 09:11:29 Visit Nereida [facility] 350.1.13.10 it[place] [id number] [facility] [address] 2014-07-22 2014-07-22 [facility] [id number] 17:51:00 21:57:00 Emergency r [place] 00 [facility] 2014-07-22 2014-07-22 [facility] [id number] [place] 17:51:00 21:57:00 Emergency r [place] 00 [facility] 2014-07-22 2014-07-22 Outpatient Griffin 2.16.840. 2.16.840.1 . [id number] 12:51:00 16:57:00 Christy 1.089461. [id number] 00 Radhika 3.615.0.1 5.0.101 01 Results Test Description Test Time Test Comments Results Result [facility] e Comments RAD, CHEST, 1 2022-06-15 Post-intubationReason VIEW, NON DEPT 0 for 13:01:00 exam:->encephalopathy , r[facility] at [facility]O [facility] bedside?->Yes [...] (test code 3 = 2661) BASIC METABOLIC [id number] 09:21:22 Test Item Value Reference Range Interpretation [...] not appl icable for dialysis patien ts Iv Therapy Nurse ID - [id number] 07:01:03 Test Item Value Reference Range Interpretation Comments PHOSPHORUS (BEAKER) (test code = 3.1 mg/dL 2.3-4.7 604) Iv Therapy Nurse ID - PABLITO WHEPATIC FUNCTION [id number] 07:01:02 Test Item Value Reference Range Interpretation [...] (test code = 21 U/L 6-55 347) Iv Therapy Nurse ID - PABLITO [id number] 07:01:02 Test Item Value Reference Range Interpretation Comments MAGNESIUM (BEAKER) (test code = 2.5 mg/dL 1.6-2.6 627) Iv Therapy Nurse ID - PABLITO WB-TYPE NATRIURETIC FACTOR (BNP)2022-07-12 06:45:03 Test Item Value Reference Range Interpretation Comments B-TYPE NATRIURETIC PEPTIDE (BEAKER) 33 pg/mL 0-100 (test code = 700) Iv Therapy Nurse ID - PABLITO [id number] 06:38:12 Test Item Value Reference Range Interpretation [...] of thrombosis is within 95-100% range. PROTHROMBIN TIME/[id number] 06:28:19 Test Item Value Reference Range Interpretation Comments PROTIME (BEAKER) (test code = 13.9 seconds 11.9-14.2 759) INR (BEAKER) (test code = 370) 1.09 <=5.90 RECOMMENDED COUMADIN/WARFARIN INR THERAPY RANGESSTANDARD DOSE: 2.0 - 3.0 Includes: PROPHYLAXIS for venous thrombosis, systemic embolization; TREATMENT for venous thrombosis and/or pulmonary embolus.HIGH RISK: Target INR is 2.5-3.5 for patients with mechanical heart valves.POCT-GLUCOSE [id number] 06:10:03 Test Item Value Reference Range Interpretation Comments POC-GLUCOSE METER 97 mg/dL 70-110 : TESTED A T [facility] 6720 (BEAKER) (test code = CHRISTAL Zeke [facility], 1538) 65952: Iv Therapy Nurse/Techni santosh ID = [id number] for Jackie Sousa COMP. METABOLIC PANEL (62438)2022-07-11 11:58:27 Test Item Value Reference Range Interpretation Comments NA (test code = 138 mmol/L 135-145 3041879991) K (test code = 4.5 mmol/L 3.5-5.0 Slight hemoly sis 3667969273) CL (test code = 101 mmol/L 98-108 2091503817) CO2 TOTAL (test 23 mmol/L 23-31 code = 8085042639) AGAP (test code = 14 2-16 3279459533) BUN (test code = 14 mg/dL 7-23 Slight hemo lysis 8838408636) GLUCOSE (test code 94 mg/dL 70-110 = 5182064822) CREATININE (test 0.67 mg/dL 0.60-1.25 code = 8799124852) TOTAL BILI (test 0.6 mg/dL 0.1-1.1 code = 0500027563) CALCIUM (test code 9.0 mg/dL 8.6-10.6 = 1094786091) T PROTEIN (test 7.2 g/dL 6.3-8.2 code = 3825579417) ALBUMIN (test code 4.5 g/dL 3.5-5.0 = 7833341379) ALK PHOS (test 88 U/L 34-122 Slight hemoly sis code = 0915995143) ALTv (test code = 31 U/L 5-50 1742-6) AST(SGOT) (test 40 U/L 13-40 Slight hemol ysis code = 8103644135) eGFR (test code = 121.4 mL/min/1.73m2 9385501745) DEWAYNE (test code = Association of DEWAYNE) [...] or urine or abnormalities in imaging tests). [facility] WITH [id number] 11:18:00 Test Item Value Reference Range Interpretation [...] (test code = 53.9 fL 38.5-51.6 H 55350-1) RDW-CV (test code = 17.2 % 12.1-15.4 H 788-0) PLT (test code = 400 See_Comment H [Automated 777-3) message] The sy stem which generated this result transmitted reference range : 150 - 328 10*3/ ?L. The reference r mitra was not used to interpret this result as normal/abnormal . MPV (test code = 8.8 fL 9.8-13.0 L 52903-8) NRBC/100 WBC (test 0.0 See_Comment [Automat ed code = 5965272736) message] The system which generated this result transmitted reference range : 0.0 - 10.0 /100 WBCs. The refer ence range was not u sed to interpret th is result as normal/abnormal . NRBC x10^3 (test code See_Comment [Auto mated = 6311707613) message] The s ystem which generated this result transmitted reference range : 10*3/?L. The reference range was not used to interpret this result as normal/abnormal . GRAN MAT (NEUT) % 71.5 % (test code = 770-8) IMM GRAN % (test code 0.40 % = 2173004321) LYMPH % (test code = 17.6 % 736-9) MONO % (test code = 7.4 % 5905-5) EOS % (test code = 1.8 % 713-8) BASO % (test code = 1.3 % 706-2) GRAN MAT x10^3(ANC) 5.11 10*3/uL 1.99-6.95 (test code = 9140987457) IMM GRAN x10^3 (test 0.03 10*3/uL 0.00-0.06 code = 5664379056) LYMPH x10^3 (test code 1.26 10*3/uL 1.09-3.23 = 731-0) MONO x10^3 (test code 0.53 10*3/uL 0.36-1.02 = 742-7) EOS x10^3 (test code = 0.13 10*3/uL 0.06-0.53 711-2) BASO x10^3 (test code 0.09 10*3/uL 0.01-0.09 = 704-7) Lab Interpretation Abnormal (test code = 60743-3) [facility]2022-07-11 09:27:00 Test Item Value Reference Range Interpretation Comments POCT GLU (test code = 4725439045) 95 mg/dL 70-110 Lab Interpretation (test code = Normal 00194-0) [facility]OLIC PANEL (99043)2022-07-05 13:14:57 Test Item Value Reference Range Interpretation Comments NA (test code = 137 mmol/L 135-145 1604609103) K (test code = 4.2 mmol/L 3.5-5.0 0692372069) CL (test code = 100 mmol/L 98-108 5860222045) CO2 TOTAL (test code = 24 mmol/L 23-31 8291370501) AGAP (test code = 13 2-16 6388156692) BUN (test code = 11 mg/dL 7-23 7546014674) GLUCOSE (test code = 124 mg/dL 70-110 H 2408203785) CREATININE (test code = 0.81 mg/dL 0.60-1.25 4519124248) TOTAL BILI (test code = 0.6 mg/dL 0.1-1.2 4610914500) CALCIUM (test code = 9.1 mg/dL 8.6-10.6 3617698539) T PROTEIN (test code = 7.0 g/dL 6.3-8.2 9905679162) ALBUMIN (test code = 4.3 g/dL 3.5-5.0 9023302260) ALK PHOS (test code = 103 U/L 34-122 0521312466) ALTv (test code = 28 U/L 5-50 2-6) AST(SGOT) (test code = 39 U/L 13-40 9859022441) eGFR (test code = 97.5 mL/min/1.73m2 3896477880) DEWAYNE (test code = DEWAYNE) Association of [...] tests). Lab Interpretation Abnormal (test code = 89343-2) [facility] [id number] 12:25:35 Test Item Value Reference Range Interpretation Comments NT-proBNP (test code = 523 pg/mL <=125 H 1949019485) DEWAYNE (test code = DEWAYNE) Biotin has been reported to cause a negative bias, interpret results relative to patient's use of biotin. Lab Interpretation (test Abnormal code = 46124-6) [facility] HospitalTR[facility] [id number] 12:25:35 Test Item Value Reference Range Interpretation Comments TROPONIN I (test code = 0.009 ng/mL <=0.034 1840507326) DEWAYNE (test code = DEWAYNE) Reference (Normal) [...] biotin. Lab Interpretation Normal (test code = 11209-7) [facility] WITH [id number] 12:01:31 Test Item Value Reference Range Interpretation Comments WBC (test code = 7.09 See_Comment [Automated 4390-2) message] The sy stem which generated this result transmitted reference range : 4.20 - 10.70 10*3/?L. The reference range was not used to interpret this result as normal/abnormal . RBC (test code = 3.08 See_Comment L [Automated 169-8) message] The sy stem which generated this [...] (test code = 52.8 fL 38.5-51.6 H 14152-8) RDW-CV (test code = 16.1 % 12.1-15.4 H 788-0) PLT (test code = 436 See_Comment H [Automated 777-3) message] The sy stem which generated this result transmitted reference range : 150 - 328 10*3/ ?L. The reference r mitra was not used to interpret this result as normal/abnormal . MPV (test code = 8.9 fL 9.8-13.0 L 36320-6) NRBC/100 WBC (test 0.3 See_Comment [Automat ed code = 0895846654) message] The system which generated this result transmitted reference range : 0.0 - 10.0 /100 WBCs. The refer ence range was not u sed to interpret th is result as normal/abnormal . NRBC x10^3 (test code 0.02 See_Comment [Auto mated = 3683397889) message] The s ystem which generated this result transmitted reference range : 10*3/?L. The reference range was not used to interpret this result as normal/abnormal . GRAN MAT (NEUT) % 69.0 % (test code = 770-8) IMM GRAN % (test code 0.40 % = 9178552823) LYMPH % (test code = 16.1 % 736-9) MONO % (test code = 12.7 % 5905-5) EOS % (test code = 0.8 % 713-8) BASO % (test code = 1.0 % 706-2) GRAN MAT x10^3(ANC) 4.89 10*3/uL 1.99-6.95 (test code = 6155921699) IMM GRAN x10^3 (test 0.03 10*3/uL 0.00-0.06 code = 7125801721) LYMPH x10^3 (test code 1.14 10*3/uL 1.09-3.23 = 731-0) MONO x10^3 (test code 0.90 10*3/uL 0.36-1.02 = 742-7) EOS x10^3 (test code = 0.06 10*3/uL 0.06-0.53 711-2) BASO x10^3 (test code 0.07 10*3/uL 0.01-0.09 = 704-7) Lab Interpretation Abnormal (test code = 40441-2) [facility] HospitalSEROTONIN RELEASE [id number] 14:13:16 Test Item Value Reference Range Interpretation Comments SCAN RESULT (test code = 6185554) UFH LOW DOSE 0.1 (2) See sca nned report. (BEAKER) (test code = 2593) See scanned reportU/S, RENAL, [id number] 17:23:00Reason for exam:->[facility]oneph[facility] 1960 Sex: MFINAL [...] void residual urinary bladder volume Signed: Susan Dumont Verified Date/Time: 06/23/2022 17:23:41 CBC W/PLT COUNT & AUTO [id number] 05:58:22 Test Item Value Reference Range Interpretation [...] (BEAKER) (test code = 2801) U/S, ABDOMINAL, [id number] 16:48:00Abdomen limited area? Add comment if clarification is needed.->Right upper quadrantReason for exam:->elevated Tbili - please evaluate [facility] 1960 Sex: MFINAL REPORT Right Upper Quadrant Ultrasound History: Elevated total bilirubin Comparison: CT abdomen and pelvis performed on 06/21/2022 Findings:Unremarkable echotexture and contour of liver. No hepatic mass or intrahepatic biliary dilation. Gallbladder is contracted. No gallstones or pericholecystic fluid is visualized. No sonographic Anand's sign. Common bile duct measures 2.9mm. The main portal vein appears patent, with expected hepatopedal flow. The main portal vein measures9.3mm in diameter. Pancreas not well seen due to overlying bowel gas. Right kidney demonstrates no hydronephros is, shadowing calculus, or mass lesion. Right kidney measures 10.3 x 5.0 x 4.9cm. Impression:Unremarkable right upper quadrant ultrasound. Signed: [facility] Verified Date/Time: 06/22/2022 16:48:01 SERUM [id number] 16:04:04 Test Item Value Reference Range Interpretation Comments IMMUNOGLOBULIN A (IGA) 146 mg/dL 63-484 (BEAKER) (test code = 639) IMMUNOGLOBULIN G (IGG) 704 mg/dL 540-1822 (BEAKER) (test code = 427) IMMUNOGLOBULIN M (IGM) 72 mg/dL 22-293 (BEAKER) (test code = 638) SERUM IT ID 6144(BEAKER) No monoclonal (test code = 3817) protein detected. [facility]-"[id number] Axel Lawler, " (BEAKER) (test code = M.D. 3808) Clinical Business Job Titles - SFOperator ID - ADMINPROTEIN ELECTROPHORESIS, SERUM WITH REFLEX TO [id number] 16:03:41 Test Item Value Reference Range Interpretation [...] (test code = increased. 2615) Non-specific change. [id number] [facility] Rosalinebenjaari, (BEAKER) (test code = M.D. 5466) PROTEIN TOTAL SERUM, 6.6 gm/dL 6.0-8.3 SPEP (BEAKER) (test code = 4690) Clinical Business Job Titles - SFOperator ID - ADMINOperator ID - ADMHEPARIN ANTIBODY 2022-06-22 12:12:51 Test Item Value Reference Range Interpretation Comments HEPARIN ANTIBODY Positive-See Serotonin Negative A (BEAKER) (test code = Release Assay for 646) Confirmation HEPARIN ANTIBODY OD 3.000 <0.400 H (BEAKER) (test code = 2659) 4T TOTAL SCORE 5 (BEAKER) (test code = 2661) [id number] 05:50:16 Test Item Value Reference Range Interpretation Comments HAPTOGLOBIN (BEAKER) (test code = 308 mg/dL 14-258 H 366) Iv Therapy Nurse ID - ADMINOperator ID - ADMINVITAMIN [id number] 05:20:33 Test Item Value Reference Range Interpretation Comments VITAMIN B12 (BEAKER) (test code = 359 pg/mL 213-816 774) Iv Therapy Nurse ID - [id number] 05:20:33 Test Item Value Reference Range Interpretation Comments FERRITIN (BEAKER) (test code = 415.83 ng/mL 5.00-275.00 H 361) Iv Therapy Nurse ID - MARCOIRON, TIBC, % SAT. (WITHOUT FERRITIN)2022-06-22 04:59:45 Test Item Value Reference Range Interpretation Comments IRON (BEAKER) (test code = 547) 38.0 ug/dL 40.0-160.0 L TOTAL IRON BINDING CAPACITY 311 ug/dL 250-450 (BEAKER) (test code = 769) IRON % SATURATION (2) (BEAKER) 12 % 20-55 L (test code = 2590) Iv Therapy Nurse ID - MARCORETICULOCYTE [id number] 04:53:40 Test Item Value Reference Range Interpretation Comments RETICULOCYTE COUNT PCT (BEAKER) (test 5.7 % 0.5-1.8 H code = 575) Iv Therapy Nurse ID - 6000CBC W/PLT COUNT & AUTO [id number] 04:53:36 Test Item Value Reference Range Interpretation [...] (BEAKER) (test code = 2801) HEPATIC FUNCTION [id number] 04:48:30 Test Item Value Reference Range Interpretation [...] (test code = 19 U/L 6-55 347) Iv Therapy Nurse ID - ADMINLACTATE DEHYDROGENASE (LDH)2022-06-22 04:48:30 Test Item Value Reference Range Interpretation Comments LACTATE DEHYDROGENASE (BEAKER) (test 271 U/L 125-220 H code = 635) Iv Therapy Nurse ID - ADMINBASIC METABOLIC [id number] 04:48:29 Test Item Value Reference Range Interpretation [...] not appl icable for dialysis patien ts Iv Therapy Nurse ID - [id number] 04:48:29 Test Item Value Reference Range Interpretation Comments MAGNESIUM (BEAKER) (test code = 2.2 mg/dL 1.6-2.6 627) Iv Therapy Nurse ID - ADMINCOMPREHENSIVE METABOLIC [id number] 13:27:13 Test Item Value Reference Range Interpretation [...] not appl icable for dialysis patien ts Iv Therapy Nurse ID - JSCBC W/PLT COUNT & AUTO [id number] 13:14:04 Test Item Value Reference Range Interpretation [...] PERCENT (BEAKER) (test code = 2801) PROTHROMBIN TIME/[id number] 13:13:03 Test Item Value Reference Range Interpretation Comments PROTIME (PIO) (test code = 15.2 seconds 11.9-14.2 H 759) INR (BEAKER) (test code = 370) 1.28 <=5.90 RECOMMENDED COUMADIN/WARFARIN INR THERAPY RANGESSTANDARD DOSE: 2.0 - 3.0 Includes: PROPHYLAXIS for venous thrombosis, systemic embolization; TREATMENT for venous thrombosis and/or pulmonary embolus.HIGH RISK: Target INR is 2.5-3.5 for patients with mechanical heart valves.SARS-CoV2/RT-PCR ([facility]) 2022-06-21 13:03:14 Test Item Value Reference Interpretation Comments Range SARS-COV2/RT-PCR Negative Negative The SARS-Co V-2 (test code = target nucleic 97631-9) acids are not detected in thi s [...] rapid, real-willie e RT-PCR test intended for th e [...] revoked sooner. Fact Sheet for Healthcare Providers: https://www.[employer]/Documents/Xp ert%20Xpress%20SAR S%20CoV-2/Fact%20S heets/302-3802%20S ARS-COV-2%20HEALTH CARE%20PROVIDERS%2 0FACT%20SHEET.pdf Fact Sheet for Healthcare Patients: https://www.[employer]/Documents/Xp ert%20Xpress%20SAR S%20CoV-2/Fact%20S heets/302-3801%20S ARS-COV-2%20PATIEN T%20FACT%20SHEET.p df Lab Interpretation Normal (test code = 89187-9) [facility]2022-06-21 13:03:14 Test Item Value Reference Interpretation Comments Range SARS-COV2/RT-PCR Negative Negative The SARS-Co V-2 (test code = target nucleic 13115-0) acids are not detected in thi s [...] rapid, real-willie e RT-PCR test intended for th e [...] revoked sooner. Fact Sheet for Healthcare Providers: https://www.[employer]/Documents/Xp ert%20Xpress%20SAR S%20CoV-2/Fact%20S heets/302-3802%20S ARS-COV-2%20HEALTH CARE%20PROVIDERS%2 0FACT%20SHEET.pdf Fact Sheet for Healthcare Patients: https://www.[employer]/Documents/Xp ert%20Xpress%20SAR S%20CoV-2/Fact%20S heets/302-3801%20S ARS-COV-2%20PATIEN T%20FACT%20SHEET.p df Lab Interpretation Normal (test code = 05345-3) [facility]2022-06-21 13:03:14 Test Item Value Reference Range Interpretation Comments SARS-COV2/RT-PCR Negative Negative The SARS-Co V-2 target (test code = nucleic acids a re not 3532652) detected in thi s specimen. Negative result [...] revoked sooner. Fact Sheet for Healthcare Providers: https://www.[employer] m/Documents/Xpert%20Xpress%20SARS%20CoV-2/Fact%20Sheets/3023802%30OFSE-QMS-3%20 HEALTHCARE%20PROVIDERS%20FACT%20SHEET.pdf Fact Sheet for Healthcare Patients: https://www.[employer]/Documents/Xpert%20Xp ress%20SARS%20CoV-2/Fact%20Sheets/302-3801%09TEIU-FBI-8%20PATIENT%20FACT%20SHEET .pdfSURGICAL PATHOLOGY [id number] 19:37:37 Test Item Value Reference Range Interpretation Comments Case Report (test code Surgical Pathology ? ? = [id number]) ?Case: [id number] ? Authorizing Provider: ?Lawrence Peterson MD ?Collected: ? 06/03/2022 1042 ?Ordering Location: ? ? [facility] OR ? Received: ?06/03/2022 1154 ? Department ? Pathologist: ? Tatyana Monroe, ? MD PhD ? Specimen: ? ?OTHER, IVC FOREIGN BODY ? Final Diagnosis (test j4edwCMgZHSqw1rwYCOaqN code = 0879399917) FuZzEwMzNcZnRuYmpcdWMx IHtccnRmMVxlcGljMTAyMD KhDU5ptMrkzCb4oLjqSAIk fuD4nKFwDWstp5adUPR1d9 wiwwviNWFnVNcyHq8ciQQq tIrhGmZtKVDnGTb8kH50PI KgjZ5udYGuSRw3MHOfbIZn nhQlOyPhACBxhOWnlDR0II UmQA0lcdwkMTptLHziIUAv stS0OIAggTRtR7EaKKLnTS 4etzdaLLB8IRwjQZBjROY6 YrTqSJJqm3Qjdfw5SaFfgW FyZFxwbGFpblxmczIwXHBh ciBBLiBIRUFSVCwgUkVNT1 ZBTCBPRiBJTkZFUklPUiBW WG9QZOYKXaWcHx0GTBsFEu GLY1RITtJsxFDoIOXkGWVs XR9PGIQETKtVYN1UMEmASP nkGWTHTNNGBEXTOpLWG7JB BbExW6kUIOCWOeLRFzvHQm CGCO5JSNGWFgHxAnqYWDAP TXjqIVThXOOeZRDeV6Gkq5 DaUQxdyWbvQCAxr03np68g nTiqt1CqGYmrp6IkZKYzt4 VbgRX6qD3aVH7uBCEoaqHj FITuDYAFYNBwF43QWILNJJ 4zfHFmeGhhjdGxBWwvz0Vx F8GxWaFzKKdxgnHfLRDxZp oxjovnQZNbHMY0phKuDVLf CAgfQRCpVXyaVa9qhKBebB rmVwZcSURut4qtycLBQIbh MvHsM249HCIcWRyld8dyt8 ZjAOExeZFrt4D1BXATuxlc jXr0u8yuCjGdUiG9jIAvZU xeL7eucwTgxEKwX0EltXNp lHo7tZkfH69do1C4AgnnH0 lvPWJqYNOhW5ExBB3mREVz Rgq2EJO8PTO0WTBlUOReQ9 WlHI2oRBEopSZyLGd4l0iu qBquHICpSYK4w3rfFFjvoz M6US4vxf9jkNa7f5jjbtFx DQYeZMVfwLUWPVQlB6EivJ ujLo9brYe4dLixRtegVRM0 Jhf1RE4quc59ejp6fPsrQW LenbyhIqG6ZBcdPLWsvybf WDf9JPlyKDXojCS5LYRifQ EnV5NoDDXiGR0fwcz0AAG9 SDdtWOIeEcN0XGBhlFTgCR DcsIawDUrsm269NWD0LoIp HZ9nL2Jxj9L5mB0qaZTaYO VryEFaLsGvTFXhxq8yjESf ZOysb0TpUKF3cuV5aGIulH UcZENrFR35Kkfcv7ObUnjj MAS0EJRdonShk8Jaq0rvMt GtcuIcU4rpR4AzLXAoAPJg IYUjPpDiqsVjc1Rxf2ZivO FwoRt0x4rmKZSiXIKvhUxv a7tfPWD2WXAeL8A0nTBag4 leNIaxXUVdhWF9bzP3BOWx gQIcE9KywB1eQOIoUU7hzx u3u2bfIAK3DKooXNJsWjU5 qeI5FUIkhTTsGHApdTqiDW lqj864FIK7LqVyVPNxh8Pl G9XwdAajS55yxFyjK96aPZ JqkNeyjZ9oiCmhqZ8cZoUa ZnMyNFxxbFxwbGFpblxmMV xmczIwXGxhbmcxMDMzXGhp G9kdRiBjIQIloYidXUlgv7 NoXGYxXGNmMlxmczIwXHBh bwVHRWlhpvAfbEVnu73aMU xseSByZXZpZXdlZCBhbGwg z7TtX5uzQI8lD5WbrGMpeg GhwvTlPSouWLMjg1w9zFJt kHgfy5NksQPoPG30onAeWQ FeXUJ7WNVnp5lcXD06ywlq XyPneB72meXqcdHsRNCrp6 diW8kypRKqp1Tfs8VjcmAq OFkkp7GuPG2zbERvzyxliP G5ZBVekOIasdWizqB0tInp AECtpL0igB7xqWzqyY5dUc AaVjThQHmoAC8fMRVpO9xg uVIwHDZrXOCzS4nqKxQvwB 7jvRsqTxbjdpD5WTEmrv34 Final Diagnosis Comment n8cobJPcSEVroHQdLOYhPj (test code = cuooUqQDUahMZeP4Elndjd 6631579100) YCmlQF2zFV7ccLbvwXAqrT CdTDGcPcGlr1uyl878bIXq t0ofHTMKcvxmdMy5kRseS1 0xj6R2IiklW1jyRZM3EMtz ykHpidBuWVJrjRL7GPkzqq LvWpB5KAvuDMZwHzM6HWUb jJOeCRK3yZzsKEDsbswdTy Y9BKzuPVRizsesFAs2HYad GMDonEI2IRValUMaB7FtIF LiKX3pwxy2IYH4FUpjPYEg YqD9AQSwaWLkSGLboEgbUF akp337LUI7MrEgVVBsnvNk lYfemV4lZeObCIaoIzBgV4 hjYnBhdDJccGFyIFRoZSBh Mw03ZVRlmOHliE5zeiLwlG I1TAIsWJFeIVN4UrqpC7Mx LCB5kzUjal8gjeHevEHsjA 1whFxhtnMjzeo3JIO9sVOa TKZodjJumxUcw0I9PIIys3 A6TXVfi0TpsLvkuu1hV07j aUTyZPSvdEWntWaxsd8yYB YgdGhlIHNwZWNpbWVuIGlz UR7zGEAbMALcv4Uel9QmUD LwbjJon59hhggehCkeIVGf FBIybsGtJ2ZahDrqOVAhb6 IglRI3qZ7lc4pkn5IjZUFq cn0= Clinical Information Acute deep vein (test code = thrombosis (DVT) of 8727304369) iliac vein of both lower extremities [I82.423] Gross Description (test y2mkcCAfCKCycQYvZCUqKf code = 4481096314) avegNnYNVfsDVeY5Rixapb PMgvAH9vHG4avGrlfZDgmL PrHHDkBbOzk5kjl858zQMi v0nzCIUWupblqUa3aIrcZ1 0ka4B5CiquV67geNNqNBB5 HEVfSXIgrFNgMIGuNGP1PP FydZPaH1peOMUaDV4owgnh FZdbUGqlFSQlfWF4GXYsuU FsP9JrHTDcCOtzNETziwm9 ApCtRf4bhYFyxLagVLsmYj gvsDsuo0YauBRzNSpnPUQx NBSlXSyrAJQaM5MVJFHmUt k7XPKwKZSkGoAEILU7WiX1 CFXfUGMXCZJaUWdjEOJ7Mb kyIiBMUlIgODAwMDAwMDAw FEFmGJ8bKUlfpDQdJJpfGr olOAxpB756SHylXSLsA3Lo X5TyPErfMVT9UIWpUbJhYO YtVI2CAmWrMYH5AZKxLpZv RHp7HVn5FO5USnWeCFEfGe E6KoSsBEZaHTt7KClsWW5X JMN0NOLgAdt6KBxvWCC8PT UjBEa0CFOzOTitpzHiACqk QurhLDefO62faZYfFWkxgD FpblxmczIwIFNQRUNJTUVO FMFkjUWaPBFaoyGob8TpUF vtrUjlSVSwFoSnfNhqdZ6s SsVjXCEJrJKioV5nhjICFW enDZDnE9SkrmKzMNBdFLYw IGxhYmVsbGVkIHdpdGggdG bzUYWwnFxsnyWtN1H3enRj LG5qAXHOEUMmmO8hURFvYY KqPBLLZCAjxcDsD42hQk9g rMqlIcEtH7T7UBIbVTAoe6 4naAL5qcAdIlCgJQ1oqQZn jUutPL95sKWlrILtfllcSR BnBHOqQ7AcJGHpfhreNHOm GQ02HMbbDx3uGThdFC02HV HgRKluT1Yov3KpyVOee10d jWR0TI96NRkfhKbdWU3cxL 9zZOAwu3VzsaSxBBPuFPDf CROwyVYgfd8nUZtpm6LcJK 4kYXzlJTedfQmmeY3bkiKf lFHfUFVcKDEnj9UcYcVUqS Rse2WuP1mtII9hsUCeMj7l EMgtf9VcZVT7CC0bhyD1jF 6fQE4fnQbuEFfzTVCodUJp ZFxmczIyXHBhclxzYTMwXG BdsQXJb2MlOUYRlAyyOIWC B8weoMGiSUqdSCOGFAqKB9 KFMFujCWRtO1CuP2DgokK6 b7uieXago1UctHPtTN4deD FyfQ== Disclaimer (test code = r7qhnSRhWPIqm7yaLKRlmQ 0211494836) FuZzEwMzNcZnRuYmpcdWMx YEmucqNbVPwpi1LsG0CmPw AwMFxhbnNpXGRlZmxhbmcx YBEwYCK3hvYtXRFsZJhaQF YgIDssIz0prTEohVqjYeWg NLWsk7gtqsHMWJvePoCfV7 80QLZaQWppr3jae2XrWDUz uQFpf7P0NJERikcsnAz4pK ptQ65cb8K9QaepO3weQNHf QNQiA3AuFR1qJNCiZhu0MS I3NZJ1NZPqOHBcG0KrZY8k QXTqxDSqNIv7w5pikYntWX QwKAK2u9vkSXxqqiDlPF8o at6nfSa5m0uzhqSnLHNiSX FcbAOHSTSaN1PwsSkhHy9x zMn4kHqrJyewCVP6Prr7ZB 8poa15kiq3zBxpXWPzxssa GbA6SIdrEZZtyzgpHZa9EM yyIWWhoLU5RUJbyHGhQ7Oo YLZtYQ3mibu8NLC1GPkzLN BoSlU5ZQWzuZQxTCZtfYmb NZwbd198TNL7UpNaGE7fP3 Bof9R0sZ3uwJPwLCMdnMXc XuIcISClsb1vjMKyPAwdd0 IgWEO7sqY5hBIjpACaFSPo JH42Ywbgc4ZzFwayd8SyZ3 2zgUS7AEvdt3krYC7lClI8 wfNoBKtuy2drqS3kSgY1SP vpGR3pCZ5yAJDnoJ3cnpyt XHBnYnJkcmhlYWRccGdicm OdIl2ugAarFOR8YOzuD8tu kF6eIfU3WOopZ7kfaA3gKU a7LTccoRU7IXClvG2wBC3f gfbfl3fnEOavWRlqFMZrli S2iuP3WWXnqVFeW9IpxJ8g PIPdWR1zdvrhr2wsPFY9VW orVFSdPWI3JdFpBTVzf7Ot xlw3HrWzj3GjxCVvPOpfX1 6nm398LSRbtvMvJ7zhqULn ykeicSEwmeucPNoqkbR4WP FxppPev1GeCBNyWJF3ERrt UTwreROfAKAxpHjov8bzW1 RscGFyXHBsYWluXGYxXGZz MjBcbGFuZzEwMzNcaGljaF swVTjfVcIzEFHsVTpkD2mq TfEzJ3QaQJEoIfOzvKRsV9 ggVGhpcyByZXBvcnQgbWF5 CUfhY8d7RFAmufOhpXd2ut VwKtBhFLOsBMP2ZJiacPPx RHFqj4ArkhhszUVuGh6jnH XtNRWnfE4kVIDzZNYhEXqm UD3fjVg3OELUzQVnhBBvPh CLFCNbRE24ryNpVRBNomou v5K6EPuoTSKjw3LmjWMxR0 imr8XkSJWwe81lTW7lp8O0 d5cbKVD1CZ2dl7CgRNKguL EzzKByNJXsa3Iaalmpc1Sj NWFijzUhs4JcHAAolxBmuH BeSKCinbOegy9rrwSiSFEw IGKxC7VqlacmoJlrccAlYS Nnnb0moxIpKRK2ROTNPTLs GVStz8AlvG5vcCYITHN1vE Isdv3ujvLAfKMfXQKvim98 ACRgZQ2oM0mxLFMjKJLhnt IjeWMgm7OwZKFuwDB5eBIj OI8OJbEHj61tNNBcKDDCbl VmQZNvkVetpIK4kwI1nG8y IChGREEpLlx+IFRoZSBGRE InAE9iafPyt2HekaTjjSxi CICtcNCmb5DpgMXjm5EmfF chb9MeePTzhPQuQV8pJOTk clxwYXIgVVRNQiBMYWJvcm A6q0CuWGFsTBKiPNX5tJan lts3JNDcgB4bOQPgZ0tjkh zuVWjgAZThn3VxwI3pwUVK fTAyj0WinKXgjTKXjYQrJI 0iudClEBjQWLnIXAP5qaUk QGFzd9VqSObbR1fbJ17ljZ cazGl1zAA4WVS4xX8pSyw+ IFxwYXJccGFyIEFwcHJvcH LuFBOlnUhvbsMnE2ObkgIy jB8bpXDepmVmFQ9tCL2fN1 O9kAVqDLTmjzMmm7dqVEzu dmUgYmVlbiByZXZpZXdlZC Rrb2XdEPukTQU2JVglccVc bmNsdWRpbmcgSCZFLCBTcG WifGPcLUY4HJwinvLbvvSj DD2cyF2mmNqthV1efDLcxI D2eshrWYSxYZUgtGjuQMMf FK9ltUTnBDUzgaYBsLpkjO JwhT9pU7XmQLMfIEYpdf6e PERzgF3cPThdk4QjkylaCA GkZWXoHNArroPuwo6yWPXl nQANWN4HPOniiZBjf9Cjme AuM5rBVNG1QHMoRbRwEulk BFTnfGEldWYjPPIwoh64GG NeiC4zxVuzQLArpS9koE8l xLulyT9vJbFwHbUrMFmjRS 4uMJWaU7ptxKOtNNLiDTGw J5bnXsXvdG0aeAzjXJnkRw PbPoMaTIgvSUV3lO== Embedded Images (test code = 8777103950) [facility] METABOLIC PANEL (NA, K, CL, CO2, GLUCOSE, BUN, CREATININE, CA)2022-06-07 09:52:38 Test Item Value Reference Range Interpretation Comments NA (test code = 135 mmol/L 135-145 7982753251) K (test code = 4.0 mmol/L 3.5-5.0 6198781883) CL (test code = 104 mmol/L 98-108 8123649379) CO2 TOTAL (test code = 25 mmol/L 23-31 3115604726) AGAP (test code = 6 2-16 2652000936) BUN (test code = 16 mg/dL 7-23 2344791720) GLUCOSE (test code = 144 mg/dL 70-110 H 2075166031) CREATININE (test code = 1.10 mg/dL 0.60-1.25 7033595977) CALCIUM (test code = 8.4 mg/dL 8.6-10.6 L 7894626176) eGFR (test code = 68.5 mL/min/1.73m2 7680350309) DEWAYNE (test code = DEWAYNE) Association of [...] tests). Lab Interpretation Abnormal (test code = 26154-8) [facility] Test Item Value Reference Range Interpretation Comments MAGNESIUM (test code = 9270287166) 2.5 mg/dL 1.7-2.4 H Lab Interpretation (test code = Abnormal 48278-1) [facility] 09:52:38 Test Item Value Reference Range Interpretation Comments PHOSPHORUS (test code = 5471102820) 3.9 mg/dL 2.5-5.0 Lab Interpretation (test code = Normal 97313-9) [facility] WITH [id number] 12:15:07 Test Item Value Reference Range Interpretation [...] RDW-SD (test code = 51.5 fL 38.5-51.6 40115-9) RDW-CV (test code = 15.9 % 12.1-15.4 H 788-0) PLT (test code = 115 See_Comment L [Automated 777-3) message] The sy stem which generated this result transmitted reference range : 150 - 328 10*3/ ?L. The reference r mitra was not used to interpret this result as normal/abnormal . MPV (test code = 9.9 fL 9.8-13.0 61426-6) IPF % (test code = 2.9 % 1.2-10.7 Platelet count 7868746338) measured by fluorescence method. NRBC/100 WBC (test 0.3 See_Comment [Automat ed code = 9152459245) message] The system which generated this result transmitted reference range : 0.0 - 10.0 /100 WBCs. The refer ence range was not u sed to interpret th is result as normal/abnormal . NRBC x10^3 (test code 0.02 See_Comment [Auto mated = 3481449622) message] The s ystem which generated this result transmitted reference range : 10*3/?L. The reference range was not used to interpret this result as normal/abnormal . GRAN MAT (NEUT) % 60.5 % (test code = 770-8) IMM GRAN % (test code 1.70 % = 9620464923) LYMPH % (test code = 24.7 % 736-9) MONO % (test code = 8.7 % 5905-5) EOS % (test code = 3.9 % 713-8) BASO % (test code = 0.5 % 706-2) GRAN MAT x10^3(ANC) 3.84 10*3/uL 1.99-6.95 (test code = 4444277908) IMM GRAN x10^3 (test 0.11 10*3/uL 0.00-0.06 H code = 5079903054) LYMPH x10^3 (test code 1.57 10*3/uL 1.09-3.23 = 731-0) MONO x10^3 (test code 0.55 10*3/uL 0.36-1.02 = 742-7) EOS x10^3 (test code = 0.25 10*3/uL 0.06-0.53 711-2) BASO x10^3 (test code 0.03 10*3/uL 0.01-0.09 = 704-7) Lab Interpretation Abnormal (test code = 40967-6) [facility] WITH [id number] 12:15:07 Test Item Value Reference Range Interpretation Comments WBC (test code = 6.35 See_Comment [Automated 6490-2) message] The sy stem which generated this result transmitted reference range : 4.20 - 10.70 10*3/?L. The reference range was not used to interpret this result as normal/abnormal . RBC (test code = 2.65 See_Comment L [Automated 909-8) message] The sy stem which generated this [...] RDW-SD (test code = 51.5 fL 38.5-51.6 56939-8) RDW-CV (test code = 15.9 % 12.1-15.4 H 788-0) PLT (test code = 115 See_Comment L [Automated 777-3) message] The sy stem which generated this result transmitted reference range : 150 - 328 10*3/ ?L. The reference r mitra was not used to interpret this result as normal/abnormal . MPV (test code = 9.9 fL 9.8-13.0 77884-1) IPF % (test code = 2.9 % 1.2-10.7 Platelet count 7749838265) measured by fluorescence method. NRBC/100 WBC (test 0.3 See_Comment [Automat ed code = 8594457172) message] The system which generated this result transmitted reference range : 0.0 - 10.0 /100 WBCs. The refer ence range was not u sed to interpret th is result as normal/abnormal . NRBC x10^3 (test code 0.02 See_Comment [Auto mated = 1811385596) message] The s ystem which generated this result transmitted reference range : 10*3/?L. The reference range was not used to interpret this result as normal/abnormal . GRAN MAT (NEUT) % 60.5 % (test code = 770-8) IMM GRAN % (test code 1.70 % = 5615426786) LYMPH % (test code = 24.7 % 736-9) MONO % (test code = 8.7 % 5905-5) EOS % (test code = 3.9 % 713-8) BASO % (test code = 0.5 % 706-2) GRAN MAT x10^3(ANC) 3.84 10*3/uL 1.99-6.95 (test code = 4183319685) IMM GRAN x10^3 (test 0.11 10*3/uL 0.00-0.06 H code = 1657461339) LYMPH x10^3 (test code 1.57 10*3/uL 1.09-3.23 = 731-0) MONO x10^3 (test code 0.55 10*3/uL 0.36-1.02 = 742-7) EOS x10^3 (test code = 0.25 10*3/uL 0.06-0.53 711-2) BASO x10^3 (test code 0.03 10*3/uL 0.01-0.09 = 704-7) Lab Interpretation Abnormal (test code = 68716-0) [facility]01 Test Item Value Reference Range Interpretation Comments MAGNESIUM (test code = 6210614389) 2.4 mg/dL 1.7-2.4 Lab Interpretation (test code = Normal 19307-7) [facility] 11:43:01 Test Item Value Reference Range Interpretation Comments PHOSPHORUS (test code = 0790989060) 4.1 mg/dL 2.5-5.0 Lab Interpretation (test code = Normal 73640-6) [facility] (NA, K, CL, CO2, GLUCOSE, BUN, CREATININE, CA)2022-06-05 11:43:01 Test Item Value Reference Range Interpretation Comments NA (test code = 137 mmol/L 135-145 7913852711) K (test code = 3.8 mmol/L 3.5-5.0 8290554606) CL (test code = 105 mmol/L 98-108 0063796383) CO2 TOTAL (test code = 28 mmol/L 23-31 4545678429) AGAP (test code = 4 2-16 8341660070) BUN (test code = 17 mg/dL 7-23 4505123648) GLUCOSE (test code = 86 mg/dL 70-110 0825126865) CREATININE (test code = 1.06 mg/dL 0.60-1.25 2312428230) CALCIUM (test code = 8.4 mg/dL 8.6-10.6 L 3596578268) eGFR (test code = 71.5 mL/min/1.73m2 1851872861) DEWAYNE (test code = DEWAYNE) Association of [...] tests). Lab Interpretation Abnormal (test code = 36014-3) [facility] 11:43:01 Test Item Value Reference Range Interpretation Comments MAGNESIUM (test code = 2887148727) 2.4 mg/dL 1.7-2.4 Lab Interpretation (test code = Normal 56303-9) [facility] 11:43:01 Test Item Value Reference Range Interpretation Comments PHOSPHORUS (test code = 3711485829) 4.1 mg/dL 2.5-5.0 Lab Interpretation (test code = Normal 87552-4) [facility] (NA, K, CL, CO2, GLUCOSE, BUN, CREATININE, CA)2022-06-05 11:43:01 Test Item Value Reference Range Interpretation Comments NA (test code = 137 mmol/L 135-145 3050775470) K (test code = 3.8 mmol/L 3.5-5.0 7650422479) CL (test code = 105 mmol/L 98-108 1298862991) CO2 TOTAL (test code = 28 mmol/L 23-31 2165572359) AGAP (test code = 4 2-16 1109408458) BUN (test code = 17 mg/dL 7-23 6349735420) GLUCOSE (test code = 86 mg/dL 70-110 7323857944) CREATININE (test code = 1.06 mg/dL 0.60-1.25 3329426468) CALCIUM (test code = 8.4 mg/dL 8.6-10.6 L 2726566800) eGFR (test code = 71.5 mL/min/1.73m2 0873540647) DEWAYNE (test code = DEWAYNE) Association of [...] tests). Lab Interpretation Abnormal (test code = 55074-6) [facility] (77715[facility] (ALB,T.PRO,BILI T,BU/BC,ALT,AST,ALK PHOS)2022-06-04 08:25:57 Test Item Value Reference Range Interpretation Comments TOTAL BILI (test code = 9283590385) 0.7 mg/dL 0.1-1.1 BILI UNCON (test code = 3724834366) 0.3 mg/dL 0.1-1.1 BILI CONJ (test code = 0326911216) 0.0 mg/dL 0.0-0.3 T PROTEIN (test code = 9026632064) 6.4 g/dL 6.3-8.2 ALBUMIN (test code = 0601253197) 3.7 g/dL 3.5-5.0 ALK PHOS (test code = 6034599681) 105 U/L 34-122 ALTv (test code = 1742-6) 71 U/L 5-50 H AST(SGOT) (test code = 6259873024) 51 U/L 13-40 H Lab Interpretation (test code = Abnormal 55852-9) [facility] (00086[facility] (ALB,T.PRO,BILI T,BU/BC,ALT,AST,ALK PHOS)2022-06-04 08:25:57 Test Item Value Reference Range Interpretation Comments TOTAL BILI (test code = 5758123547) 0.7 mg/dL 0.1-1.1 BILI UNCON (test code = 4100999709) 0.3 mg/dL 0.1-1.1 BILI CONJ (test code = 8641017614) 0.0 mg/dL 0.0-0.3 T PROTEIN (test code = 2267436958) 6.4 g/dL 6.3-8.2 ALBUMIN (test code = 5799805851) 3.7 g/dL 3.5-5.0 ALK PHOS (test code = 9772557448) 105 U/L 34-122 ALTv (test code = 1742-6) 71 U/L 5-50 H AST(SGOT) (test code = 0949570070) 51 U/L 13-40 H Lab Interpretation (test code = Abnormal 27458-0) [id number]08 Test Item Value Reference Range Interpretation Comments TROPONIN I (test code = 0.027 ng/mL <=0.034 [id number]) DEWAYNE (test code = DEWAYNE) Reference (Normal) [...] biotin. Lab Interpretation Normal (test code = 56750-3) [facility] [id number] 06:14:08 Test Item Value Reference Range Interpretation Comments TROPONIN I (test code = 0.027 ng/mL <=0.034 0848507269) DEWAYNE (test code = DEWAYNE) Reference (Normal) [...] biotin. Lab Interpretation Normal (test code = 30908-4) [facility] WITH [id number] 05:33:25 Test Item Value Reference Range Interpretation Comments WBC (test code = 9.78 See_Comment [Automated 5927-2) message] The sy stem which generated this result transmitted reference range : 4.20 - 10.70 10*3/?L. The reference range was not used to interpret this result as normal/abnormal . RBC (test code = 2.85 See_Comment L [Automated 243-2) message] The sy stem which generated this [...] RDW-SD (test code = 50.4 fL 38.5-51.6 75065-9) RDW-CV (test code = 15.9 % 12.1-15.4 H 788-0) PLT (test code = 121 See_Comment L [Automated 777-3) message] The sy stem which generated this result transmitted reference range : 150 - 328 10*3/ ?L. The reference r mitra was not used to interpret this result as normal/abnormal . MPV (test code = 8.7 fL 9.8-13.0 L 24514-9) IPF % (test code = 2.3 % 1.2-10.7 Platelet count [id number]) measured by fluorescence method. NRBC/100 WBC (test 0.6 See_Comment [Automat ed code = 5645629961) message] The system which generated this result transmitted reference range : 0.0 - 10.0 /100 WBCs. The refer ence range was not u sed to interpret th is result as normal/abnormal . NRBC x10^3 (test code 0.06 See_Comment [Auto mated = 0125359647) message] The s ystem which generated this result transmitted reference range : 10*3/?L. The reference range was not used to interpret this result as normal/abnormal . GRAN MAT (NEUT) % 80.9 % (test code = 770-8) IMM GRAN % (test code 4.80 % = 1426389587) LYMPH % (test code = 8.6 % 736-9) MONO % (test code = 5.6 % 5905-5) EOS % (test code = 0.0 % 713-8) BASO % (test code = 0.1 % 706-2) GRAN MAT x10^3(ANC) 7.91 10*3/uL 1.99-6.95 H (test code = 8223098370) IMM GRAN x10^3 (test 0.47 10*3/uL 0.00-0.06 H code = 5779712460) LYMPH x10^3 (test code 0.84 10*3/uL 1.09-3.23 L = 731-0) MONO x10^3 (test code 0.55 10*3/uL 0.36-1.02 = 742-7) EOS x10^3 (test code = 0.06-0.53 L 711-2) BASO x10^3 (test code 0.01-0.09 = 704-7) Lab Interpretation Abnormal (test code = 34894-8) [facility] WITH [id number] 05:33:25 Test Item Value Reference Range Interpretation [...] RDW-SD (test code = 50.4 fL 38.5-51.6 19866-3) RDW-CV (test code = 15.9 % 12.1-15.4 H 788-0) PLT (test code = 121 See_Comment L [Automated 777-3) message] The sy stem which generated this result transmitted reference range : 150 - 328 10*3/ ?L. The reference r mitra was not used to interpret this result as normal/abnormal . MPV (test code = 8.7 fL 9.8-13.0 L 54296-5) IPF % (test code = 2.3 % 1.2-10.7 Platelet count 3038743518) measured by fluorescence method. NRBC/100 WBC (test 0.6 See_Comment [Automat ed code = 4633541546) message] The system which generated this result transmitted reference range : 0.0 - 10.0 /100 WBCs. The refer ence range was not u sed to interpret th is result as normal/abnormal . NRBC x10^3 (test code 0.06 See_Comment [Auto mated = 9598614128) message] The s ystem which generated this result transmitted reference range : 10*3/?L. The reference range was not used to interpret this result as normal/abnormal . GRAN MAT (NEUT) % 80.9 % (test code = 770-8) IMM GRAN % (test code 4.80 % = 8866688915) LYMPH % (test code = 8.6 % 736-9) MONO % (test code = 5.6 % 5905-5) EOS % (test code = 0.0 % 713-8) BASO % (test code = 0.1 % 706-2) GRAN MAT x10^3(ANC) 7.91 10*3/uL 1.99-6.95 H (test code = 4590828384) IMM GRAN x10^3 (test 0.47 10*3/uL 0.00-0.06 H code = 0584511379) LYMPH x10^3 (test code 0.84 10*3/uL 1.09-3.23 L = 731-0) MONO x10^3 (test code 0.55 10*3/uL 0.36-1.02 = 742-7) EOS x10^3 (test code = 0.06-0.53 L 711-2) BASO x10^3 (test code 0.01-0.09 = 704-7) Lab Interpretation Abnormal (test code = 47240-6) [facility]NA, K, CL, CO2, GLUCOSE, BUN, CREATININE, CA)2022-06-04 05:32:04 Test Item Value Reference Range Interpretation Comments NA (test code = 136 mmol/L 135-145 7633678043) K (test code = 4.1 mmol/L 3.5-5.0 4778629392) CL (test code = 104 mmol/L 98-108 2651135837) CO2 TOTAL (test code = 25 mmol/L 23-31 4695513390) AGAP (test code = 7 2-16 6361624194) BUN (test code = 19 mg/dL 7-23 5750167158) GLUCOSE (test code = 166 mg/dL 70-110 H 3711516157) CREATININE (test code = 1.00 mg/dL 0.60-1.25 1934912097) CALCIUM (test code = 8.8 mg/dL 8.6-10.6 0353889815) eGFR (test code = 76.5 mL/min/1.73m2 6465106360) DEWAYNE (test code = DEWAYNE) Association of [...] tests). Lab Interpretation Abnormal (test code = 30476-6) [facility] METABOLIC PANEL (NA, K, CL, CO2, GLUCOSE, BUN, CREATININE, CA)2022-06-04 05:32:04 Test Item Value Reference Range Interpretation Comments NA (test code = 136 mmol/L 135-145 7836710146) K (test code = 4.1 mmol/L 3.5-5.0 2419827174) CL (test code = 104 mmol/L 98-108 5665445832) CO2 TOTAL (test code = 25 mmol/L 23-31 3828423269) AGAP (test code = 7 2-16 1113924974) BUN (test code = 19 mg/dL 7-23 9001657986) GLUCOSE (test code = 166 mg/dL 70-110 H 1914119720) CREATININE (test code = 1.00 mg/dL 0.60-1.25 8212958106) CALCIUM (test code = 8.8 mg/dL 8.6-10.6 6966696466) eGFR (test code = 76.5 mL/min/1.73m2 0164264335) DEWAYNE (test code = DEWAYNE) Association of [...] tests). Lab Interpretation Abnormal (test code = 04607-8) [facility] (for use with Heparin Drip)2022-06-04 05:24:43 Test Item Value Reference Range Interpretation Comments APTT Patient (test code 105 See_Comment [Au tomated message] = 3173-2) The system [employer] generated this result transmitted ref erence range: 26 - 36 Seconds. The reference range was not used to int erpret this result as normal/abnormal . Lab Interpretation (test Abnormal code = 16122-8) [facility] (for use with Heparin Drip)2022-06-04 05:24:43 Test Item Value Reference Range Interpretation Comments APTT Patient (test code 105 See_Comment [Au tomated message] = 3173-2) The system [employer] generated this result transmitted ref erence range: 26 - 36 Seconds. The reference range was not used to int erpret this result as normal/abnormal . Lab Interpretation (test Abnormal code = 40202-3) [facility]GLU[facility]CA2+2022-06-04 02:57:07 Test Item Value Reference Range Interpretation Comments PH (test code = 2) 7.31 7.35-7.45 L PCO2 (test code = 42 See_Comment [Automate d message] 7963202355) The system [employer] generated this result transmit elizabeth reference range : 35 - 45 mmHg. The reference range was not used to interpret this result as normal/abnormal . PO2 (test code = 144 See_Comment H [Automated message] 5520274696) The system [employer] generated this result transmit elizabeth reference range : 80 - 100 mmHg. The reference range was not used to interpret this result as normal/abnormal . HCO3 (test code = 21 See_Comment L [Automate d message] 7347701076) The system [employer] generated this result transmit elizabeth reference range : 22 - 26 mEq/L. The reference range was not used to interpret this result as normal/abnormal . BE (test code = -4.8 See_Comment L [Automated message] 4821544181) The system [employer] generated this result transmit elizabeth reference range : -3.0 - 3.0 mEq/ L. The reference r mitra was not used to interpret this result as normal/abnormal . THB (test code = 9.6 g/dL 13.5-18.0 L 7170874889) %O2HB (test code = 98.4 % 94.0-99.0 2273168064) %COHB ART (test code = 0.1 % 0.0-1.5 6510380068) %METHB ART (test code = 0.1 % 0.4-1.5 L 4870501005) VOL%O2 ART (test code = 13.6 % 15.0-23.0 L QUES 2370885068) NA (test code = 133 mmol/L 135-145 L 6881689752) K+ (test code = 4.6 mmol/L 3.5-5.0 2023377242) AC CA IONZ (test code = 4.40 mg/dL 4.50-5.30 L 0367317742) GLUCOSE (test code = 148 mg/dL 70-110 H 3509571784) Lab Interpretation Abnormal (test code = 48182-5) [facility]-04 02:57:07 Test Item Value Reference Range Interpretation Comments PH (test code = 2) 7.31 7.35-7.45 L PCO2 (test code = 42 See_Comment [Automate d message] 4616680140) The system [employer] generated this result transmit elizabeth reference range : 35 - 45 mmHg. The reference range was not used to interpret this result as normal/abnormal . PO2 (test code = 144 See_Comment H [Automated message] 8290867883) The system [employer] generated this result transmit elizabeth reference range : 80 - 100 mmHg. The reference range was not used to interpret this result as normal/abnormal . HCO3 (test code = 21 See_Comment L [Automate d message] 8052095761) The system [employer] generated this result transmit elizabeth reference range : 22 - 26 mEq/L. The reference range was not used to interpret this result as normal/abnormal . BE (test code = -4.8 See_Comment L [Automated message] 3674805058) The system [employer] generated this result transmit elizabeth reference range : -3.0 - 3.0 mEq/ L. The reference r mitra was not used to interpret this result as normal/abnormal . THB (test code = 9.6 g/dL 13.5-18.0 L 7199062905) %O2HB (test code = 98.4 % 94.0-99.0 4354951327) %COHB ART (test code = 0.1 % 0.0-1.5 9553955165) %METHB ART (test code = 0.1 % 0.4-1.5 L 9912610702) VOL%O2 ART (test code = 13.6 % 15.0-23.0 L QUES 9540418467) NA (test code = 133 mmol/L 135-145 L 2948861719) K+ (test code = 4.6 mmol/L 3.5-5.0 2038220369) AC CA IONZ (test code = 4.40 mg/dL 4.50-5.30 L 0297378962) GLUCOSE (test code = 148 mg/dL 70-110 H 4682951320) Lab Interpretation Abnormal (test code = 22601-0) [facility]CA2[facility]2022-06-04 02:55:52 Test Item Value Reference Range Interpretation Comments PH (test code = 2) 7.31 7.35-7.45 L PCO2 (test code = 38 See_Comment [Automate d message] 1495021801) The system [employer] generated this result transmit elizabeth reference range : 35 - 45 mmHg. The reference range was not used to interpret this result as normal/abnormal . PO2 (test code = 180 See_Comment H [Automated message] 8868628759) The system [employer] generated this result transmit elizabeth reference range : 80 - 100 mmHg. The reference range was not used to interpret this result as normal/abnormal . HCO3 (test code = 19 See_Comment L [Automate d message] 0777604036) The system [employer] generated this result transmit elizabeth reference range : 22 - 26 mEq/L. The reference range was not used to interpret this result as normal/abnormal . BE (test code = -7.2 See_Comment L [Automated message] 6479897538) The system [employer] generated this result transmit elizabeth reference range : -3.0 - 3.0 mEq/ L. The reference r mitra was not used to interpret this result as normal/abnormal . THB (test code = 8.4 g/dL 13.5-18.0 L 5425873093) %O2HB (test code = 98.1 % 94.0-99.0 5994029183) %COHB ART (test code = 0.4 % 0.0-1.5 1602208651) %METHB ART (test code = 0.3 % 0.4-1.5 L 4085043693) VOL%O2 ART (test code = 12.0 % 15.0-23.0 L QUES 8164403570) NA (test code = 135 mmol/L 135-145 7926775111) K+ (test code = 4.1 mmol/L 3.5-5.0 1296110175) AC CA IONZ (test code = 4.90 mg/dL 4.50-5.30 2349210147) GLUCOSE (test code = 128 mg/dL 70-110 H 3900157306) Lab Interpretation Abnormal (test code = 74138-3) [facility]CA2+2022-06-04 02:55:52 Test Item Value Reference Range Interpretation Comments PH (test code = 2) 7.31 7.35-7.45 L PCO2 (test code = 38 See_Comment [Automate d message] 7379691317) The system [employer] generated this result transmit elizabeth reference range : 35 - 45 mmHg. The reference range was not used to interpret this result as normal/abnormal . PO2 (test code = 180 See_Comment H [Automated message] 3795573703) The system [employer] generated this result transmit elizabeth reference range : 80 - 100 mmHg. The reference range was not used to interpret this result as normal/abnormal . HCO3 (test code = 19 See_Comment L [Automate d message] 8521371638) The system [employer] generated this result transmit elizabeth reference range : 22 - 26 mEq/L. The reference range was not used to interpret this result as normal/abnormal . BE (test code = -7.2 See_Comment L [Automated message] 1104035435) The system [employer] generated this result transmit elizabeth reference range : -3.0 - 3.0 mEq/ L. The reference r mitra was not used to interpret this result as normal/abnormal . THB (test code = 8.4 g/dL 13.5-18.0 L 4802255266) %O2HB (test code = 98.1 % 94.0-99.0 2513522041) %COHB ART (test code = 0.4 % 0.0-1.5 7806743581) %METHB ART (test code = 0.3 % 0.4-1.5 L 2612281316) VOL%O2 ART (test code = 12.0 % 15.0-23.0 L QUES 3681822544) NA (test code = 135 mmol/L 135-145 5015664018) K+ (test code = 4.1 mmol/L 3.5-5.0 0408070113) AC CA IONZ (test code = 4.90 mg/dL 4.50-5.30 1730280630) GLUCOSE (test code = 128 mg/dL 70-110 H 7021804098) Lab Interpretation Abnormal (test code = 47648-4) [facility] [id number] 13:22:00 Test Item Value Reference Range Interpretation Comments ABO & RH (test code = 20) AB POSITIVE IAT (test code = 1185) Negative [facility] Ghrsuqs9816-14-47 13:22:00 Test Item Value Reference Range Interpretation Comments ABO & RH (test code = 20) AB POSITIVE IAT (test code = 1185) Negative [facility] WITH [id number] 11:35:29 Test Item Value Reference Range Interpretation [...] RDW-SD (test code = 50.8 fL 38.5-51.6 83230-1) RDW-CV (test code = 15.9 % 12.1-15.4 H 788-0) PLT (test code = 265 See_Comment [Automated 777-3) message] The sy stem which generated this result transmitted reference range : 150 - 328 10*3/ ?L. The reference r mitra was not used to interpret this result as normal/abnormal . MPV (test code = 9.0 fL 9.8-13.0 L 62137-2) NRBC/100 WBC (test 0.5 See_Comment [Automat ed code = 0539395073) message] The system which generated this result transmitted reference range : 0.0 - 10.0 /100 WBCs. The refer ence range was not u sed to interpret th is result as normal/abnormal . NRBC x10^3 (test code 0.06 See_Comment [Auto mated = 1868139842) message] The s ystem which generated this result transmitted reference range : 10*3/?L. The reference range was not used to interpret this result as normal/abnormal . GRAN MAT (NEUT) % 67.4 % (test code = 770-8) IMM GRAN % (test code 5.90 % = 7199363103) LYMPH % (test code = 13.6 % 736-9) MONO % (test code = 8.5 % 5905-5) EOS % (test code = 4.1 % 713-8) BASO % (test code = 0.5 % 706-2) GRAN MAT x10^3(ANC) 7.42 10*3/uL 1.99-6.95 H (test code = 2137226739) IMM GRAN x10^3 (test 0.65 10*3/uL 0.00-0.06 H code = 6473265728) LYMPH x10^3 (test code 1.50 10*3/uL 1.09-3.23 = 731-0) MONO x10^3 (test code 0.94 10*3/uL 0.36-1.02 = 742-7) EOS x10^3 (test code = 0.45 10*3/uL 0.06-0.53 711-2) BASO x10^3 (test code 0.06 10*3/uL 0.01-0.09 = 704-7) Lab Interpretation Abnormal (test code = 62407-9) [facility] WITH [id number] 11:35:29 Test Item Value Reference Range Interpretation [...] RDW-SD (test code = 50.8 fL 38.5-51.6 34002-8) RDW-CV (test code = 15.9 % 12.1-15.4 H 788-0) PLT (test code = 265 See_Comment [Automated 777-3) message] The sy stem which generated this result transmitted reference range : 150 - 328 10*3/ ?L. The reference r mitra was not used to interpret this result as normal/abnormal . MPV (test code = 9.0 fL 9.8-13.0 L 47736-0) NRBC/100 WBC (test 0.5 See_Comment [Automat ed code = 3104848737) message] The system which generated this result transmitted reference range : 0.0 - 10.0 /100 WBCs. The refer ence range was not u sed to interpret th is result as normal/abnormal . NRBC x10^3 (test code 0.06 See_Comment [Auto mated = 8888201514) message] The s ystem which generated this result transmitted reference range : 10*3/?L. The reference range was not used to interpret this result as normal/abnormal . GRAN MAT (NEUT) % 67.4 % (test code = 770-8) IMM GRAN % (test code 5.90 % = 6400947392) LYMPH % (test code = 13.6 % 736-9) MONO % (test code = 8.5 % 5905-5) EOS % (test code = 4.1 % 713-8) BASO % (test code = 0.5 % 706-2) GRAN MAT x10^3(ANC) 7.42 10*3/uL 1.99-6.95 H (test code = 4480163410) IMM GRAN x10^3 (test 0.65 10*3/uL 0.00-0.06 H code = 0440223311) LYMPH x10^3 (test code 1.50 10*3/uL 1.09-3.23 = 731-0) MONO x10^3 (test code 0.94 10*3/uL 0.36-1.02 = 742-7) EOS x10^3 (test code = 0.45 10*3/uL 0.06-0.53 711-2) BASO x10^3 (test code 0.06 10*3/uL 0.01-0.09 = 704-7) Lab Interpretation Abnormal (test code = 69625-5) [facility] 11:30:46 Test Item Value Reference Range Interpretation Comments MAGNESIUM (test code = 3115504779) 2.4 mg/dL 1.7-2.4 Lab Interpretation (test code = Normal 11403-2) [facility] 11:30:46 Test Item Value Reference Range Interpretation Comments PHOSPHORUS (test code = 5808814018) 4.8 mg/dL 2.5-5.0 Lab Interpretation (test code = Normal 62960-4) [facility] (NA, K, CL, CO2, GLUCOSE, BUN, CREATININE, CA)2022-06-03 11:30:46 Test Item Value Reference Range Interpretation Comments NA (test code = 136 mmol/L 135-145 7404867997) K (test code = 4.2 mmol/L 3.5-5.0 3230332970) CL (test code = 104 mmol/L 98-108 6860916261) CO2 TOTAL (test code 26 mmol/L 23-31 = 1810021705) AGAP (test code = 6 2-16 1767274180) BUN (test code = 18 mg/dL 7-23 7112697106) GLUCOSE (test code = 103 mg/dL 70-110 7887871421) CREATININE (test code 1.08 mg/dL 0.60-1.25 = 2674740136) CALCIUM (test code = 8.7 mg/dL 8.6-10.6 3937680556) eGFR (test code = 70.0 mL/min/1.73m2 2543308511) DEWAYNE (test code = DEWAYNE) Association of [...] or urine or abnormalities in imaging tests). [facility] 11:30:46 Test Item Value Reference Range Interpretation Comments MAGNESIUM (test code = 5404055158) 2.4 mg/dL 1.7-2.4 Lab Interpretation (test code = Normal 77103-5) [facility] 11:30:46 Test Item Value Reference Range Interpretation Comments PHOSPHORUS (test code = 7143546353) 4.8 mg/dL 2.5-5.0 Lab Interpretation (test code = Normal 35879-8) [facility] (NA, K, CL, CO2, GLUCOSE, BUN, CREATININE, CA)2022-06-03 11:30:46 Test Item Value Reference Range Interpretation Comments NA (test code = 136 mmol/L 135-145 2293161597) K (test code = 4.2 mmol/L 3.5-5.0 8923559899) CL (test code = 104 mmol/L 98-108 9868135474) CO2 TOTAL (test code 26 mmol/L 23-31 = 0273321475) AGAP (test code = 6 2-16 4280369794) BUN (test code = 18 mg/dL 7-23 1432362635) GLUCOSE (test code = 103 mg/dL 70-110 9177959288) CREATININE (test code 1.08 mg/dL 0.60-1.25 = 4534017326) CALCIUM (test code = 8.7 mg/dL 8.6-10.6 2598941478) eGFR (test code = 70.0 mL/min/1.73m2 4460974266) DEWAYNE (test code = DEWAYNE) Association of [...] or urine or abnormalities in imaging tests). [facility] (for use with Heparin Drip)2022-06-03 11:15:05 Test Item Value Reference Range Interpretation Comments APTT Patient (test code 52 See_Comment H [Au tomated message] = 6453-2) The system [employer] generated this result transmitted ref erence range: 26 - 36 Seconds. The reference range was not used to int erpret this result as normal/abnormal . Lab Interpretation (test Abnormal code = 84263-2) [facility] (for use with Heparin Drip)2022-06-03 11:15:05 Test Item Value Reference Range Interpretation Comments APTT Patient (test code 52 See_Comment H [Au tomated message] = 5633-2) The system [employer] generated this result transmitted ref erence range: 26 - 36 Seconds. The reference range was not used to int erpret this result as normal/abnormal . Lab Interpretation (test Abnormal code = 01856-2) [facility] METABOLIC PANEL (NA, K, CL, CO2, GLUCOSE, BUN, CREATININE, CA)2022-06-02 13:56:04 Test Item Value Reference Range Interpretation Comments NA (test code = 137 mmol/L 135-145 6267272093) K (test code = 4.4 mmol/L 3.5-5.0 0069591973) CL (test code = 105 mmol/L 98-108 1138392253) CO2 TOTAL (test code 27 mmol/L 23-31 = 4493239794) AGAP (test code = 5 2-16 8147398573) BUN (test code = 19 mg/dL 7-23 0307183505) GLUCOSE (test code = 92 mg/dL 70-110 4821939776) CREATININE (test code 0.96 mg/dL 0.60-1.25 = 3601496220) CALCIUM (test code = 8.7 mg/dL 8.6-10.6 3788158244) eGFR (test code = 80.2 mL/min/1.73m2 0210451707) DEWAYNE (test code = DEWAYNE) Association of [...] or urine or abnormalities in imaging tests). [facility] METABOLIC PANEL (NA, K, CL, CO2, GLUCOSE, BUN, CREATININE, CA)2022-06-02 13:56:04 Test Item Value Reference Range Interpretation Comments NA (test code = 137 mmol/L 135-145 6378600811) K (test code = 4.4 mmol/L 3.5-5.0 8457577030) CL (test code = 105 mmol/L 98-108 8840203464) CO2 TOTAL (test code 27 mmol/L 23-31 = 7722411284) AGAP (test code = 5 2-16 9045124980) BUN (test code = 19 mg/dL 7-23 2920203521) GLUCOSE (test code = 92 mg/dL 70-110 2599148579) CREATININE (test code 0.96 mg/dL 0.60-1.25 = 9174096696) CALCIUM (test code = 8.7 mg/dL 8.6-10.6 6224702220) eGFR (test code = 80.2 mL/min/1.73m2 4644814982) DEWAYNE (test code = DEWAYNE) Association of [...] or urine or abnormalities in imaging tests). [facility] WITH [id number] 11:30:12 Test Item Value Reference Range Interpretation [...] RDW-SD (test code = 50.1 fL 38.5-51.6 85206-0) RDW-CV (test code = 15.8 % 12.1-15.4 H 788-0) PLT (test code = 239 See_Comment [Automated 777-3) message] The sy stem which generated this result transmitted reference range : 150 - 328 10*3/ ?L. The reference r mitra was not used to interpret this result as normal/abnormal . MPV (test code = 9.1 fL 9.8-13.0 L 11484-5) NRBC/100 WBC (test 0.8 See_Comment [Automat ed code = 6210069856) message] The system which generated this result transmitted reference range : 0.0 - 10.0 /100 WBCs. The refer ence range was not u sed to interpret th is result as normal/abnormal . NRBC x10^3 (test code 0.07 See_Comment [Auto mated = 7002669248) message] The s ystem which generated this result transmitted reference range : 10*3/?L. The reference range was not used to interpret this result as normal/abnormal . GRAN MAT (NEUT) % 56.4 % (test code = 770-8) IMM GRAN % (test code 6.70 % = 8192778791) LYMPH % (test code = 23.9 % 736-9) MONO % (test code = 7.3 % 5905-5) EOS % (test code = 4.9 % 713-8) BASO % (test code = 0.8 % 706-2) GRAN MAT x10^3(ANC) 4.93 10*3/uL 1.99-6.95 (test code = 1551315944) IMM GRAN x10^3 (test 0.59 10*3/uL 0.00-0.06 H code = 1795130223) LYMPH x10^3 (test code 2.09 10*3/uL 1.09-3.23 = 731-0) MONO x10^3 (test code 0.64 10*3/uL 0.36-1.02 = 742-7) EOS x10^3 (test code = 0.43 10*3/uL 0.06-0.53 711-2) BASO x10^3 (test code 0.07 10*3/uL 0.01-0.09 = 704-7) Lab Interpretation Abnormal (test code = 22344-9) [facility] WITH [id number] 11:30:12 Test Item Value Reference Range Interpretation [...] RDW-SD (test code = 50.1 fL 38.5-51.6 68814-6) RDW-CV (test code = 15.8 % 12.1-15.4 H 788-0) PLT (test code = 239 See_Comment [Automated 777-3) message] The sy stem which generated this result transmitted reference range : 150 - 328 10*3/ ?L. The reference r mitra was not used to interpret this result as normal/abnormal . MPV (test code = 9.1 fL 9.8-13.0 L 50357-9) NRBC/100 WBC (test 0.8 See_Comment [Automat ed code = 2452591966) message] The system which generated this result transmitted reference range : 0.0 - 10.0 /100 WBCs. The refer ence range was not u sed to interpret th is result as normal/abnormal . NRBC x10^3 (test code 0.07 See_Comment [Auto mated = 9695452552) message] The s ystem which generated this result transmitted reference range : 10*3/?L. The reference range was not used to interpret this result as normal/abnormal . GRAN MAT (NEUT) % 56.4 % (test code = 770-8) IMM GRAN % (test code 6.70 % = 1644747953) LYMPH % (test code = 23.9 % 736-9) MONO % (test code = 7.3 % 5905-5) EOS % (test code = 4.9 % 713-8) BASO % (test code = 0.8 % 706-2) GRAN MAT x10^3(ANC) 4.93 10*3/uL 1.99-6.95 (test code = 6367017617) IMM GRAN x10^3 (test 0.59 10*3/uL 0.00-0.06 H code = 0861278427) LYMPH x10^3 (test code 2.09 10*3/uL 1.09-3.23 = 731-0) MONO x10^3 (test code 0.64 10*3/uL 0.36-1.02 = 742-7) EOS x10^3 (test code = 0.43 10*3/uL 0.06-0.53 711-2) BASO x10^3 (test code 0.07 10*3/uL 0.01-0.09 = 704-7) Lab Interpretation Abnormal (test code = 91536-4) [facility]2023-04-20 11:16:48 Test Item Value Reference Range Interpretation Comments MAGNESIUM (test code = 9649967543) 2.3 mg/dL 1.7-2.4 Lab Interpretation (test code = Normal 78943-7) [facility]2023-04-20 11:16:48 Test Item Value Reference Range Interpretation Comments PHOSPHORUS (test code = 3091008994) 4.8 mg/dL 2.5-5.0 Lab Interpretation (test code = Normal 80947-2) [facility]2023-04-20 11:16:48 Test Item Value Reference Range Interpretation Comments MAGNESIUM (test code = 0591197525) 2.3 mg/dL 1.7-2.4 Lab Interpretation (test code = Normal 38940-4) [facility]2023-04-20 11:16:48 Test Item Value Reference Range Interpretation Comments PHOSPHORUS (test code = 8931057669) 4.8 mg/dL 2.5-5.0 Lab Interpretation (test code = Normal 87554-2) [facility] WITH [id number] 11:58:20 Test Item Value Reference Range Interpretation [...] RDW-SD (test code = 48.3 fL 38.5-51.6 81388-1) RDW-CV (test code = 15.2 % 12.1-15.4 788-0) PLT (test code = 181 See_Comment [Automated 777-3) message] The sy stem which generated this result transmitted reference range : 150 - 328 10*3/ ?L. The reference r mitra was not used to interpret this result as normal/abnormal . MPV (test code = 9.4 fL 9.8-13.0 L 85731-1) NRBC/100 WBC (test 0.3 See_Comment [Automat ed code = 6265281518) message] The system which generated this result transmitted reference range : 0.0 - 10.0 /100 WBCs. The refer ence range was not u sed to interpret th is result as normal/abnormal . NRBC x10^3 (test code 0.03 See_Comment [Auto mated = 0042435024) message] The s ystem which generated this result transmitted reference range : 10*3/?L. The reference range was not used to interpret this result as normal/abnormal . GRAN MAT (NEUT) % 59.7 % (test code = 770-8) IMM GRAN % (test code 5.80 % = 4037137518) LYMPH % (test code = 21.3 % 736-9) MONO % (test code = 8.7 % 5905-5) EOS % (test code = 4.1 % 713-8) BASO % (test code = 0.4 % 706-2) GRAN MAT x10^3(ANC) 5.49 10*3/uL 1.99-6.95 (test code = 4161230655) IMM GRAN x10^3 (test 0.53 10*3/uL 0.00-0.06 H code = 4493697671) LYMPH x10^3 (test code 1.96 10*3/uL 1.09-3.23 = 731-0) MONO x10^3 (test code 0.80 10*3/uL 0.36-1.02 = 742-7) EOS x10^3 (test code = 0.38 10*3/uL 0.06-0.53 711-2) BASO x10^3 (test code 0.04 10*3/uL 0.01-0.09 = 704-7) Lab Interpretation Abnormal (test code = 83315-1) [facility] WITH [id number] 11:58:20 Test Item Value Reference Range Interpretation Comments WBC (test code = 9.20 See_Comment [Automated 4290-2) message] The sy stem which generated this result transmitted reference range : 4.20 - 10.70 10*3/?L. The reference range was not used to interpret this result as normal/abnormal . RBC (test code = 3.18 See_Comment L [Automated 219-8) message] The sy [...] RDW-SD (test code = 48.3 fL 38.5-51.6 14882-6) RDW-CV (test code = 15.2 % 12.1-15.4 788-0) PLT (test code = 181 See_Comment [Automated 777-3) message] The sy stem which generated this result transmitted reference range : 150 - 328 10*3/ ?L. The reference r mitra was not used to interpret this result as normal/abnormal . MPV (test code = 9.4 fL 9.8-13.0 L 95808-3) NRBC/100 WBC (test 0.3 See_Comment [Automat ed code = 2642958333) message] The system which generated this result transmitted reference range : 0.0 - 10.0 /100 WBCs. The refer ence range was not u sed to interpret th is result as normal/abnormal . NRBC x10^3 (test code 0.03 See_Comment [Auto mated = 4494784784) message] The s ystem which generated this result transmitted reference range : 10*3/?L. The reference range was not used to interpret this result as normal/abnormal . GRAN MAT (NEUT) % 59.7 % (test code = 770-8) IMM GRAN % (test code 5.80 % = 0749808606) LYMPH % (test code = 21.3 % 736-9) MONO % (test code = 8.7 % 5905-5) EOS % (test code = 4.1 % 713-8) BASO % (test code = 0.4 % 706-2) GRAN MAT x10^3(ANC) 5.49 10*3/uL 1.99-6.95 (test code = 3268570045) IMM GRAN x10^3 (test 0.53 10*3/uL 0.00-0.06 H code = 3307502463) LYMPH x10^3 (test code 1.96 10*3/uL 1.09-3.23 = 731-0) MONO x10^3 (test code 0.80 10*3/uL 0.36-1.02 = 742-7) EOS x10^3 (test code = 0.38 10*3/uL 0.06-0.53 711-2) BASO x10^3 (test code 0.04 10*3/uL 0.01-0.09 = 704-7) Lab Interpretation Abnormal (test code = 25408-7) [facility] 11:[facility]:55 Test Item Value Reference Range Interpretation Comments MAGNESIUM (test code = 1664348896) 2.3 mg/dL 1.7-2.4 Lab Interpretation (test code = Normal 17257-2) [facility] 11:41:55 Test Item Value Reference Range Interpretation Comments PHOSPHORUS (test code = 7962836825) 3.4 mg/dL 2.5-5.0 Lab Interpretation (test code = Normal 04646-8) [facility] (NA, K, CL, CO2, GLUCOSE, BUN, CREATININE, CA)2022-06-01 11:41:55 Test Item Value Reference Range Interpretation Comments NA (test code = 137 mmol/L 135-145 1300714276) K (test code = 4.1 mmol/L 3.5-5.0 5712957411) CL (test code = 105 mmol/L 98-108 7665223591) CO2 TOTAL (test code = 27 mmol/L 23-31 4367272611) AGAP (test code = 5 2-16 4690478162) BUN (test code = 17 mg/dL 7-23 6548168746) GLUCOSE (test code = 135 mg/dL 70-110 H 4288464491) CREATININE (test code = 0.84 mg/dL 0.60-1.25 6940835398) CALCIUM (test code = 8.4 mg/dL 8.6-10.6 L 4111183542) eGFR (test code = 93.5 mL/min/1.73m2 1524051420) DEWAYNE (test code = DEWAYNE) Association of [...] tests). Lab Interpretation Abnormal (test code = 06608-5) [facility]55 Test Item Value Reference Range Interpretation Comments MAGNESIUM (test code = 1509139201) 2.3 mg/dL 1.7-2.4 Lab Interpretation (test code = Normal 20426-0) [facility] 11:41:55 Test Item Value Reference Range Interpretation Comments PHOSPHORUS (test code = 5107913742) 3.4 mg/dL 2.5-5.0 Lab Interpretation (test code = Normal 98287-0) [facility] (NA, K, CL, CO2, GLUCOSE, BUN, CREATININE, CA)2022-06-01 11:41:55 Test Item Value Reference Range Interpretation Comments NA (test code = 137 mmol/L 135-145 8616806814) K (test code = 4.1 mmol/L 3.5-5.0 4087957407) CL (test code = 105 mmol/L 98-108 6014746096) CO2 TOTAL (test code = 27 mmol/L 23-31 0578324630) AGAP (test code = 5 2-16 2141756391) BUN (test code = 17 mg/dL 7-23 3279971282) GLUCOSE (test code = 135 mg/dL 70-110 H 1905834370) CREATININE (test code = 0.84 mg/dL 0.60-1.25 1492182869) CALCIUM (test code = 8.4 mg/dL 8.6-10.6 L 7662132570) eGFR (test code = 93.5 mL/min/1.73m2 6960316095) DEWAYNE (test code = DEWAYNE) Association of [...] tests). Lab Interpretation Abnormal (test code = 72532-7) [facility] WITH [id number] 12:02:32 Test Item Value Reference Range Interpretation [...] RDW-SD (test code = 46.6 fL 38.5-51.6 55713-6) RDW-CV (test code = 14.9 % 12.1-15.4 788-0) PLT (test code = 154 See_Comment [Automated 777-3) message] The sy stem which generated this result transmitted reference range : 150 - 328 10*3/ ?L. The reference r mitra was not used to interpret this result as normal/abnormal . MPV (test code = 9.5 fL 9.8-13.0 L 74158-2) NRBC/100 WBC (test 0.2 See_Comment [Automat ed code = 5997538140) message] The system which generated this result transmitted reference range : 0.0 - 10.0 /100 WBCs. The refer ence range was not u sed to interpret th is result as normal/abnormal . NRBC x10^3 (test code 0.02 See_Comment [Auto mated = 2839583114) message] The s ystem which generated this result transmitted reference range : 10*3/?L. The reference range was not used to interpret this result as normal/abnormal . GRAN MAT (NEUT) % 80.7 % (test code = 770-8) IMM GRAN % (test code 4.50 % = 5298814462) LYMPH % (test code = 6.5 % 736-9) MONO % (test code = 7.3 % 5905-5) EOS % (test code = 0.6 % 713-8) BASO % (test code = 0.4 % 706-2) GRAN MAT x10^3(ANC) 7.92 10*3/uL 1.99-6.95 H (test code = 0639103376) IMM GRAN x10^3 (test 0.44 10*3/uL 0.00-0.06 H code = 1138321097) LYMPH x10^3 (test code 0.64 10*3/uL 1.09-3.23 L = 731-0) MONO x10^3 (test code 0.72 10*3/uL 0.36-1.02 = 742-7) EOS x10^3 (test code = 0.06 10*3/uL 0.06-0.53 711-2) BASO x10^3 (test code 0.04 10*3/uL 0.01-0.09 = 704-7) MEAGHAN CELLS (test code 2+ See_Comment A [Auto mated = 3290-9) message] The sy stem which generated this result transmitted reference range : (none). The reference range was not used to interpret this result as normal/abnormal . REACT LYMPHS (test Rare code = 1968653266) Lab Interpretation Abnormal (test code = 63216-4) [facility] WITH [id number] 12:02:32 Test Item Value Reference Range Interpretation Comments WBC (test code = 9.82 See_Comment [Automated 6090-2) message] The sy stem which generated this result transmitted reference range : 4.20 - 10.70 10*3/?L. The reference range was not used to interpret this result as normal/abnormal . RBC (test code = 3.82 See_Comment L [Automated 349-8) message] The sy stem which generated this [...] RDW-SD (test code = 46.6 fL 38.5-51.6 81040-2) RDW-CV (test code = 14.9 % 12.1-15.4 788-0) PLT (test code = 154 See_Comment [Automated 777-3) message] The sy stem which generated this result transmitted reference range : 150 - 328 10*3/ ?L. The reference r mitra was not used to interpret this result as normal/abnormal . MPV (test code = 9.5 fL 9.8-13.0 L 78531-1) NRBC/100 WBC (test 0.2 See_Comment [Automat ed code = 0212647394) message] The system which generated this result transmitted reference range : 0.0 - 10.0 /100 WBCs. The refer ence range was not u sed to interpret th is result as normal/abnormal . NRBC x10^3 (test code 0.02 See_Comment [Auto mated = 9448647827) message] The s ystem which generated this result transmitted reference range : 10*3/?L. The reference range was not used to interpret this result as normal/abnormal . GRAN MAT (NEUT) % 80.7 % (test code = 770-8) IMM GRAN % (test code 4.50 % = 7748105141) LYMPH % (test code = 6.5 % 736-9) MONO % (test code = 7.3 % 5905-5) EOS % (test code = 0.6 % 713-8) BASO % (test code = 0.4 % 706-2) GRAN MAT x10^3(ANC) 7.92 10*3/uL 1.99-6.95 H (test code = 5334944179) IMM GRAN x10^3 (test 0.44 10*3/uL 0.00-0.06 H code = 7434294975) LYMPH x10^3 (test code 0.64 10*3/uL 1.09-3.23 L = 731-0) MONO x10^3 (test code 0.72 10*3/uL 0.36-1.02 = 742-7) EOS x10^3 (test code = 0.06 10*3/uL 0.06-0.53 711-2) BASO x10^3 (test code 0.04 10*3/uL 0.01-0.09 = 704-7) MEAGHAN CELLS (test code 2+ See_Comment A [Auto mated = 5805-9) message] The sy stem which generated this result transmitted reference range : (none). The reference range was not used to interpret this result as normal/abnormal . REACT LYMPHS (test Rare code = 4074455700) Lab Interpretation Abnormal (test code = 12208-9) [facility] WITH [id number] 12:02:32 Test Item Value Reference Range Interpretation Comments WBC (test code = 9.82 See_Comment [Automated 9790-2) message] The sy stem which generated this result transmitted reference range : 4.20 - 10.70 10*3/?L. The reference range was not used to interpret this result as normal/abnormal . RBC (test code = 3.82 See_Comment L [Automated 969-8) message] The sy stem which generated this [...] RDW-SD (test code = 46.6 fL 38.5-51.6 82066-2) RDW-CV (test code = 14.9 % 12.1-15.4 788-0) PLT (test code = 154 See_Comment [Automated 777-3) message] The sy stem which generated this result transmitted reference range : 150 - 328 10*3/ ?L. The reference r mitra was not used to interpret this result as normal/abnormal . MPV (test code = 9.5 fL 9.8-13.0 L 48004-5) NRBC/100 WBC (test 0.2 See_Comment [Automat ed code = 0940738559) message] The system which generated this result transmitted reference range : 0.0 - 10.0 /100 WBCs. The refer ence range was not u sed to interpret th is result as normal/abnormal . NRBC x10^3 (test code 0.02 See_Comment [Auto mated = 7564126316) message] The s ystem which generated this result transmitted reference range : 10*3/?L. The reference range was not used to interpret this result as normal/abnormal . GRAN MAT (NEUT) % 80.7 % (test code = 770-8) IMM GRAN % (test code 4.50 % = 7975266515) LYMPH % (test code = 6.5 % 736-9) MONO % (test code = 7.3 % 5905-5) EOS % (test code = 0.6 % 713-8) BASO % (test code = 0.4 % 706-2) GRAN MAT x10^3(ANC) 7.92 10*3/uL 1.99-6.95 H (test code = 5768759606) IMM GRAN x10^3 (test 0.44 10*3/uL 0.00-0.06 H code = 0174151272) LYMPH x10^3 (test code 0.64 10*3/uL 1.09-3.23 L = 731-0) MONO x10^3 (test code 0.72 10*3/uL 0.36-1.02 = 742-7) EOS x10^3 (test code = 0.06 10*3/uL 0.06-0.53 711-2) BASO x10^3 (test code 0.04 10*3/uL 0.01-0.09 = 704-7) MEAGHAN CELLS (test code 2+ See_Comment A [Auto mated = 1182-) message] The sy stem which generated this result transmitted reference range : (none). The reference range was not used to interpret this result as normal/abnormal . REACT LYMPHS (test Rare code = 5121447001) Lab Interpretation Abnormal (test code = 50688-8) [facility]29 Test Item Value Reference Range Interpretation Comments MAGNESIUM (test code = 2248006085) 2.1 mg/dL 1.7-2.4 Lab Interpretation (test code = Normal 57685-0) [facility] 11:43:29 Test Item Value Reference Range Interpretation Comments PHOSPHORUS (test code = 5745580648) 3.7 mg/dL 2.5-5.0 Lab Interpretation (test code = Normal 57148-1) [facility] (NA, K, CL, CO2, GLUCOSE, BUN, CREATININE, CA)2022-05-31 11:43:29 Test Item Value Reference Range Interpretation Comments NA (test code = 133 mmol/L 135-145 L 9724344397) K (test code = 4.7 mmol/L 3.5-5.0 Slight 1945769849) hemolysis CL (test code = 104 mmol/L 98-108 0080079250) CO2 TOTAL (test code 25 mmol/L 23-31 = 4697813544) AGAP (test code = 4 2-16 5178855576) BUN (test code = 17 mg/dL 7-23 Slight 5532768888) hemolysis GLUCOSE (test code = 189 mg/dL 70-110 H 1140339667) CREATININE (test code 0.82 mg/dL 0.60-1.25 = 1179011288) CALCIUM (test code = 8.0 mg/dL 8.6-10.6 L 7649767214) eGFR (test code = 96.2 mL/min/1.73m2 8575522269) DEWAYNE (test code = DEWAYNE) Association of [...] tests). Lab Interpretation Abnormal (test code = 46606-2) [facility] 11:43:29 Test Item Value Reference Range Interpretation Comments MAGNESIUM (test code = 6703907646) 2.1 mg/dL 1.7-2.4 Lab Interpretation (test code = Normal 45487-1) [facility] 11:43:29 Test Item Value Reference Range Interpretation Comments PHOSPHORUS (test code = 2797660276) 3.7 mg/dL 2.5-5.0 Lab Interpretation (test code = Normal 78189-5) [facility] (NA, K, CL, CO2, GLUCOSE, BUN, CREATININE, CA)2022-05-31 11:43:29 Test Item Value Reference Range Interpretation Comments NA (test code = 133 mmol/L 135-145 L 8511474958) K (test code = 4.7 mmol/L 3.5-5.0 Slight 9041281128) hemolysis CL (test code = 104 mmol/L 98-108 1287211752) CO2 TOTAL (test code 25 mmol/L 23-31 = 8647830626) AGAP (test code = 4 2-16 6082584804) BUN (test code = 17 mg/dL 7-23 Slight 3671302704) hemolysis GLUCOSE (test code = 189 mg/dL 70-110 H 9358068639) CREATININE (test code 0.82 mg/dL 0.60-1.25 = 8089241530) CALCIUM (test code = 8.0 mg/dL 8.6-10.6 L 5871134691) eGFR (test code = 96.2 mL/min/1.73m2 4749156984) DEWAYNE (test code = DEWAYNE) Association of [...] tests). Lab Interpretation Abnormal (test code = 88273-3) [facility] Test Item Value Reference Range Interpretation Comments MAGNESIUM (test code = 7791691283) 2.1 mg/dL 1.7-2.4 Lab Interpretation (test code = Normal 89465-8) [facility] 11:43:29 Test Item Value Reference Range Interpretation Comments PHOSPHORUS (test code = 5549760034) 3.7 mg/dL 2.5-5.0 Lab Interpretation (test code = Normal 58467-7) [facility] (NA, K, CL, CO2, GLUCOSE, BUN, CREATININE, CA)2022-05-31 11:43:29 Test Item Value Reference Range Interpretation Comments NA (test code = 133 mmol/L 135-145 L 5210504941) K (test code = 4.7 mmol/L 3.5-5.0 Slight 2816613304) hemolysis CL (test code = 104 mmol/L 98-108 3315617619) CO2 TOTAL (test code 25 mmol/L 23-31 = 5057533839) AGAP (test code = 4 2-16 5375945361) BUN (test code = 17 mg/dL 7-23 Slight 5318976344) hemolysis GLUCOSE (test code = 189 mg/dL 70-110 H 5771672436) CREATININE (test code 0.82 mg/dL 0.60-1.25 = 6928334095) CALCIUM (test code = 8.0 mg/dL 8.6-10.6 L 3437873580) eGFR (test code = 96.2 mL/min/1.73m2 2994511017) DEWAYNE (test code = DEWAYNE) Association of [...] tests). Lab Interpretation Abnormal (test code = 86836-8) [facility] 11:30:44 Test Item Value Reference Range Interpretation Comments Fibrinogen (test code = 4753415402) 218 mg/dL 167-453 Lab Interpretation (test code = Normal 47889-4) [facility] 11:30:44 Test Item Value Reference Range Interpretation Comments Fibrinogen (test code = 6536982250) 218 mg/dL 167-453 Lab Interpretation (test code = Normal 70707-0) [facility] 11:30:44 Test Item Value Reference Range Interpretation Comments Fibrinogen (test code = 6727413848) 218 mg/dL 167-453 Lab Interpretation (test code = Normal 36753-5) [facility] / [id number] 11:29:02 Test Item Value Reference Range Interpretation Comments PROTIME PATIENT (test 12.7 See_Comment H [Auto mated message] code = 5964-2) The system [employer] generated this result transmitted ref erence range: 10.1 - 1 2.6 Seconds. The reference range was not used to int erpret this result as normal/abnormal . INR (test code = 6301-6) 1.1 Nor mal INR <1.1; Warfarin Therap eutic range 2.0 to 3. 0 or 2.5 to 3.5, dep ending upon the indica tions. Lab Interpretation (test Abnormal code = 47474-3) [facility] 11:29:02 Test Item Value Reference Range Interpretation Comments APTT Patient (test code 82 See_Comment H [Au tomated message] = 3173-2) The system [employer] generated this result transmitted ref erence range: 26 - 36 Seconds. The reference range was not used to int erpret this result as normal/abnormal . Lab Interpretation (test Abnormal code = 32313-7) [facility] / [id number] 11:29:02 Test Item Value Reference Range Interpretation Comments PROTIME PATIENT (test 12.7 See_Comment H [Auto mated message] code = 5964-2) The system [employer] generated this result transmitted ref erence range: 10.1 - 1 2.6 Seconds. The reference range was not used to int erpret this result as normal/abnormal . INR (test code = 6301-6) 1.1 Nor mal INR <1.1; Warfarin Therap eutic range 2.0 to 3. 0 or 2.5 to 3.5, dep ending upon the indica tions. Lab Interpretation (test Abnormal code = 55472-6) [facility] 11:29:02 Test Item Value Reference Range Interpretation Comments APTT Patient (test code 82 See_Comment H [Au tomated message] = 3173-2) The system [employer] generated this result transmitted ref erence range: 26 - 36 Seconds. The reference range was not used to int erpret this result as normal/abnormal . Lab Interpretation (test Abnormal code = 79673-7) [facility] / [id number] 11:29:02 Test Item Value Reference Range Interpretation Comments PROTIME PATIENT (test 12.7 See_Comment H [Auto mated message] code = 5964-2) The system [employer] generated this result transmitted ref erence range: 10.1 - 1 2.6 Seconds. The reference range was not used to int erpret this result as normal/abnormal . INR (test code = 6301-6) 1.1 Nor mal INR <1.1; Warfarin Therap eutic range 2.0 to 3. 0 or 2.5 to 3.5, dep ending upon the indica tions. Lab Interpretation (test Abnormal code = 29887-6) [facility] 11:29:02 Test Item Value Reference Range Interpretation Comments APTT Patient (test code 82 See_Comment H [Au tomated message] = 5443-2) The system [employer] generated this result transmitted ref erence range: 26 - 36 Seconds. The reference range was not used to int erpret this result as normal/abnormal . Lab Interpretation (test Abnormal code = 93490-0) [facility] 02:12:17 Test Item Value Reference Range Interpretation Comments Fibrinogen (test code = 8963490036) 124 mg/dL 167-453 L Lab Interpretation (test code = Abnormal 69635-2) [facility] 02:12:17 Test Item Value Reference Range Interpretation Comments Fibrinogen (test code = 5334706625) 124 mg/dL 167-453 L Lab Interpretation (test code = Abnormal 75037-8) [facility]20[facility] 02:12:17 Test Item Value Reference Range Interpretation Comments Fibrinogen (test code = 3078597418) 124 mg/dL 167-453 L Lab Interpretation (test code = Abnormal 63430-6) [facility]2023-[facility] 22:27:11 Test Item Value Reference Range Interpretation Comments Fibrinogen (test code = 2184624612) 108 mg/dL 167-453 L Lab Interpretation (test code = Abnormal 43127-8) [facility]20[facility] 22:27:11 Test Item Value Reference Range Interpretation Comments Fibrinogen (test code = 3370408188) 108 mg/dL 167-453 L Lab Interpretation (test code = Abnormal 90305-4) [facility]2023-[facility] 22:27:11 Test Item Value Reference Range Interpretation Comments Fibrinogen (test code = 2510911503) 108 mg/dL 167-453 L Lab Interpretation (test code = Abnormal 50034-8) [facility] 18:54:36 Test Item Value Reference Range Interpretation Comments Fibrinogen (test code = 8468443093) 110 mg/dL 167-453 L Lab Interpretation (test code = Abnormal 76521-1) [id number] 18:54:36 Test Item Value Reference Range Interpretation Comments Fibrinogen (test code = 7393248197) 110 mg/dL 167-453 L Lab Interpretation (test code = Abnormal 44317-2) [facility] Test Item Value Reference Range Interpretation Comments Fibrinogen (test code = 5146004961) 110 mg/dL 167-453 L Lab Interpretation (test code = Abnormal 57826-8) [facility] 18:54:36 Test Item Value Reference Range Interpretation Comments Fibrinogen (test code = 2769053624) 110 mg/dL 167-453 L Lab Interpretation (test code = Abnormal 93326-1) [facility] 15:54:43 Test Item Value Reference Range Interpretation Comments Fibrinogen (test code = 1510617262) 118 mg/dL 167-453 L Lab Interpretation (test code = Abnormal 59299-5) [facility] 15:54:43 Test Item Value Reference Range Interpretation Comments Fibrinogen (test code = 4920630652) 118 mg/dL 167-453 L Lab Interpretation (test code = Abnormal 98818-2) [facility]:54:43 Test Item Value Reference Range Interpretation Comments Fibrinogen (test code = 3459951022) 118 mg/dL 167-453 L Lab Interpretation (test code = Abnormal 40631-2) [facility] 15:54:43 Test Item Value Reference Range Interpretation Comments Fibrinogen (test code = 3887321923) 118 mg/dL 167-453 L Lab Interpretation (test code = Abnormal 25777-6) [facility]:27 Test Item Value Reference Range Interpretation Comments Fibrinogen (test code = 3430331028) 119 mg/dL 167-453 L Lab Interpretation (test code = Abnormal 00207-5) [facility] 13:43:27 Test Item Value Reference Range Interpretation Comments Fibrinogen (test code = 3015215972) 119 mg/dL 167-453 L Lab Interpretation (test code = Abnormal 47786-5) [facility] 13:43:27 Test Item Value Reference Range Interpretation Comments Fibrinogen (test code = 1234622240) 119 mg/dL 167-453 L Lab Interpretation (test code = Abnormal 49394-1) [facility] 13:43:27 Test Item Value Reference Range Interpretation Comments Fibrinogen (test code = 4389196269) 119 mg/dL 167-453 L Lab Interpretation (test code = Abnormal 71479-0) [facility] 11:50:10 Test Item Value Reference Range Interpretation Comments Fibrinogen (test code = 8050424566) 97 mg/dL 167-453 LL Lab Interpretation (test code = Abnormal 79307-7) [facility] 11:50:10 Test Item Value Reference Range Interpretation Comments Fibrinogen (test code = 9072992730) 97 mg/dL 167-453 LL Lab Interpretation (test code = Abnormal 11195-0) [facility]2023-[facility] 11:50:10 Test Item Value Reference Range Interpretation Comments Fibrinogen (test code = 8637445141) 97 mg/dL 167-453 LL Lab Interpretation (test code = Abnormal 37195-2) [facility] 11:50:10 Test Item Value Reference Range Interpretation Comments Fibrinogen (test code = 6920455574) 97 mg/dL 167-453 LL Lab Interpretation (test code = Abnormal 13717-1) [facility] WITH [id number] 10:13:04 Test Item Value Reference Range Interpretation Comments WBC (test code = 9.36 See_Comment [Automated 7036-2) message] The sy stem which generated this result transmitted reference range : 4.20 - 10.70 10*3/?L. The reference range was not used to interpret this result as normal/abnormal . RBC (test code = 4.03 See_Comment L [Automated 884-8) message] The sy stem which generated this [...] RDW-SD (test code = 45.3 fL 38.5-51.6 87237-9) RDW-CV (test code = 14.5 % 12.1-15.4 788-0) PLT (test code = 174 See_Comment [Automated 777-3) message] The sy stem which generated this result transmitted reference range : 150 - 328 10*3/ ?L. The reference r mitra was not used to interpret this result as normal/abnormal . MPV (test code = 8.9 fL 9.8-13.0 L 75779-5) NRBC/100 WBC (test 0.3 See_Comment [Automat ed code = 1336950520) message] The system which generated this result transmitted reference range : 0.0 - 10.0 /100 WBCs. The refer ence range was not u sed to interpret th is result as normal/abnormal . NRBC x10^3 (test code 0.03 See_Comment [Auto mated = 7419940864) message] The s ystem which generated this result transmitted reference range : 10*3/?L. The reference range was not used to interpret this result as normal/abnormal . GRAN MAT (NEUT) % 63.0 % (test code = 770-8) IMM GRAN % (test code 3.60 % = 9837224280) LYMPH % (test code = 17.5 % 736-9) MONO % (test code = 10.8 % 5905-5) EOS % (test code = 4.5 % 713-8) BASO % (test code = 0.6 % 706-2) GRAN MAT x10^3(ANC) 5.89 10*3/uL 1.99-6.95 (test code = 2505001384) IMM GRAN x10^3 (test 0.34 10*3/uL 0.00-0.06 H code = 6587915770) LYMPH x10^3 (test code 1.64 10*3/uL 1.09-3.23 = 731-0) MONO x10^3 (test code 1.01 10*3/uL 0.36-1.02 = 742-7) EOS x10^3 (test code = 0.42 10*3/uL 0.06-0.53 711-2) BASO x10^3 (test code 0.06 10*3/uL 0.01-0.09 = 704-7) REACT LYMPHS (test Rare code = 7562763885) Lab Interpretation Abnormal (test code = 92983-4) [facility] WITH [id number] 10:13:04 Test Item Value Reference Range Interpretation Comments WBC (test code = 9.36 See_Comment [Automated 7754-2) message] The sy stem which generated this result transmitted reference range : 4.20 - 10.70 10*3/?L. The reference range was not used to interpret this result as normal/abnormal . RBC (test code = 4.03 See_Comment L [Automated 019-8) message] The sy stem which generated this [...] RDW-SD (test code = 45.3 fL 38.5-51.6 39414-3) RDW-CV (test code = 14.5 % 12.1-15.4 788-0) PLT (test code = 174 See_Comment [Automated 827-3) message] The sy stem which generated this result transmitted reference range : 150 - 328 10*3/ ?L. The reference r mitra was not used to interpret this result as normal/abnormal . MPV (test code = 8.9 fL 9.8-13.0 L 58559-6) NRBC/100 WBC (test 0.3 See_Comment [Automat ed code = 9986935695) message] The system which generated this result transmitted reference range : 0.0 - 10.0 /100 WBCs. The refer ence range was not u sed to interpret th is result as normal/abnormal . NRBC x10^3 (test code 0.03 See_Comment [Auto mated = 1368324474) message] The s ystem which generated this result transmitted reference range : 10*3/?L. The reference range was not used to interpret this result as normal/abnormal . GRAN MAT (NEUT) % 63.0 % (test code = 770-8) IMM GRAN % (test code 3.60 % = 1601941077) LYMPH % (test code = 17.5 % 736-9) MONO % (test code = 10.8 % 5905-5) EOS % (test code = 4.5 % 713-8) BASO % (test code = 0.6 % 706-2) GRAN MAT x10^3(ANC) 5.89 10*3/uL 1.99-6.95 (test code = 8567308264) IMM GRAN x10^3 (test 0.34 10*3/uL 0.00-0.06 H code = 1051283477) LYMPH x10^3 (test code 1.64 10*3/uL 1.09-3.23 = 731-0) MONO x10^3 (test code 1.01 10*3/uL 0.36-1.02 = 742-7) EOS x10^3 (test code = 0.42 10*3/uL 0.06-0.53 711-2) BASO x10^3 (test code 0.06 10*3/uL 0.01-0.09 = 704-7) REACT LYMPHS (test Rare code = 6891844756) Lab Interpretation Abnormal (test code = 44049-8) [facility] WITH [id number] 10:13:04 Test Item Value Reference Range Interpretation [...] RDW-SD (test code = 45.3 fL 38.5-51.6 44056-0) RDW-CV (test code = 14.5 % 12.1-15.4 788-0) PLT (test code = 174 See_Comment [Automated 777-3) message] The sy stem which generated this result transmitted reference range : 150 - 328 10*3/ ?L. The reference r mitra was not used to interpret this result as normal/abnormal . MPV (test code = 8.9 fL 9.8-13.0 L 48360-0) NRBC/100 WBC (test 0.3 See_Comment [Automat ed code = 1454652217) message] The system which generated this result transmitted reference range : 0.0 - 10.0 /100 WBCs. The refer ence range was not u sed to interpret th is result as normal/abnormal . NRBC x10^3 (test code 0.03 See_Comment [Auto mated = 0769455105) message] The s ystem which generated this result transmitted reference range : 10*3/?L. The reference range was not used to interpret this result as normal/abnormal . GRAN MAT (NEUT) % 63.0 % (test code = 770-8) IMM GRAN % (test code 3.60 % = 1638569070) LYMPH % (test code = 17.5 % 736-9) MONO % (test code = 10.8 % 5905-5) EOS % (test code = 4.5 % 713-8) BASO % (test code = 0.6 % 706-2) GRAN MAT x10^3(ANC) 5.89 10*3/uL 1.99-6.95 (test code = 4799586367) IMM GRAN x10^3 (test 0.34 10*3/uL 0.00-0.06 H code = 0668863154) LYMPH x10^3 (test code 1.64 10*3/uL 1.09-3.23 = 731-0) MONO x10^3 (test code 1.01 10*3/uL 0.36-1.02 = 742-7) EOS x10^3 (test code = 0.42 10*3/uL 0.06-0.53 711-2) BASO x10^3 (test code 0.06 10*3/uL 0.01-0.09 = 704-7) REACT LYMPHS (test Rare code = 9961584778) Lab Interpretation Abnormal (test code = 08545-9) [facility] WITH [id number] 10:13:04 Test Item Value Reference Range Interpretation Comments WBC (test code = 9.36 See_Comment [Automated 3690-2) message] The sy stem which generated this result transmitted reference range : 4.20 - 10.70 10*3/?L. The reference range was not used to interpret this result as normal/abnormal . RBC (test code = 4.03 See_Comment L [Automated 969-8) message] The sy stem which generated this [...] RDW-SD (test code = 45.3 fL 38.5-51.6 40606-5) RDW-CV (test code = 14.5 % 12.1-15.4 788-0) PLT (test code = 174 See_Comment [Automated 777-3) message] The sy stem which generated this result transmitted reference range : 150 - 328 10*3/ ?L. The reference r mitra was not used to interpret this result as normal/abnormal . MPV (test code = 8.9 fL 9.8-13.0 L 30986-8) NRBC/100 WBC (test 0.3 See_Comment [Automat ed code = 3401373614) message] The system which generated this result transmitted reference range : 0.0 - 10.0 /100 WBCs. The refer ence range was not u sed to interpret th is result as normal/abnormal . NRBC x10^3 (test code 0.03 See_Comment [Auto mated = 5544036774) message] The s ystem which generated this result transmitted reference range : 10*3/?L. The reference range was not used to interpret this result as normal/abnormal . GRAN MAT (NEUT) % 63.0 % (test code = 770-8) IMM GRAN % (test code 3.60 % = 4990110875) LYMPH % (test code = 17.5 % 736-9) MONO % (test code = 10.8 % 5905-5) EOS % (test code = 4.5 % 713-8) BASO % (test code = 0.6 % 706-2) GRAN MAT x10^3(ANC) 5.89 10*3/uL 1.99-6.95 (test code = 4728197472) IMM GRAN x10^3 (test 0.34 10*3/uL 0.00-0.06 H code = 6046590417) LYMPH x10^3 (test code 1.64 10*3/uL 1.09-3.23 = 731-0) MONO x10^3 (test code 1.01 10*3/uL 0.36-1.02 = 742-7) EOS x10^3 (test code = 0.42 10*3/uL 0.06-0.53 711-2) BASO x10^3 (test code 0.06 10*3/uL 0.01-0.09 = 704-7) REACT LYMPHS (test Rare code = 8225276846) Lab Interpretation Abnormal (test code = 32557-5) [facility] Test Item Value Reference Range Interpretation Comments PHOSPHORUS (test code = 4852667538) 4.2 mg/dL 2.5-5.0 Lab Interpretation (test code = Normal 96974-1) [facility]:03 Test Item Value Reference Range Interpretation Comments MAGNESIUM (test code = 6581386152) 2.0 mg/dL 1.7-2.4 Lab Interpretation (test code = Normal 79468-2) [facility] (NA, K, CL, CO2, GLUCOSE, BUN, CREATININE, CA)2022-05-30 10:10:03 Test Item Value Reference Range Interpretation Comments NA (test code = 133 mmol/L 135-145 L 7081226735) K (test code = 3.9 mmol/L 3.5-5.0 6984016823) CL (test code = 103 mmol/L 98-108 3319858720) CO2 TOTAL (test code = 25 mmol/L 23-31 1394487479) AGAP (test code = 5 2-16 8240991359) BUN (test code = 22 mg/dL 7-23 1517058694) GLUCOSE (test code = 128 mg/dL 70-110 H 2697948255) CREATININE (test code = 0.87 mg/dL 0.60-1.25 5625043369) CALCIUM (test code = 8.2 mg/dL 8.6-10.6 L 7306001543) eGFR (test code = 89.8 mL/min/1.73m2 6655767220) DEWAYNE (test code = DEWAYNE) Association of [...] tests). Lab Interpretation Abnormal (test code = 37740-8) [facility]:10:03 Test Item Value Reference Range Interpretation Comments PHOSPHORUS (test code = 7661077613) 4.2 mg/dL 2.5-5.0 Lab Interpretation (test code = Normal 09844-7) [facility] 10:10:03 Test Item Value Reference Range Interpretation Comments MAGNESIUM (test code = 4372219250) 2.0 mg/dL 1.7-2.4 Lab Interpretation (test code = Normal 78180-9) [facility] (NA, K, CL, CO2, GLUCOSE, BUN, CREATININE, CA)2022-05-30 10:10:03 Test Item Value Reference Range Interpretation Comments NA (test code = 133 mmol/L 135-145 L 1803061413) K (test code = 3.9 mmol/L 3.5-5.0 2899244583) CL (test code = 103 mmol/L 98-108 7927680519) CO2 TOTAL (test code = 25 mmol/L 23-31 0199676654) AGAP (test code = 5 2-16 9910001236) BUN (test code = 22 mg/dL 7-23 2107376467) GLUCOSE (test code = 128 mg/dL 70-110 H 6925291603) CREATININE (test code = 0.87 mg/dL 0.60-1.25 7780820232) CALCIUM (test code = 8.2 mg/dL 8.6-10.6 L 1227677791) eGFR (test code = 89.8 mL/min/1.73m2 3292242548) DEWAYNE (test code = DEWAYNE) Association of [...] tests). Lab Interpretation Abnormal (test code = 73161-4) [facility] 10:10:03 Test Item Value Reference Range Interpretation Comments PHOSPHORUS (test code = 9524578193) 4.2 mg/dL 2.5-5.0 Lab Interpretation (test code = Normal 78297-5) [facility] 10:10:03 Test Item Value Reference Range Interpretation Comments MAGNESIUM (test code = 8959355240) 2.0 mg/dL 1.7-2.4 Lab Interpretation (test code = Normal 38743-5) [facility] (NA, K, CL, CO2, GLUCOSE, BUN, CREATININE, CA)2022-05-30 10:10:03 Test Item Value Reference Range Interpretation Comments NA (test code = 133 mmol/L 135-145 L 7209989141) K (test code = 3.9 mmol/L 3.5-5.0 7301011223) CL (test code = 103 mmol/L 98-108 8028365869) CO2 TOTAL (test code = 25 mmol/L 23-31 8393212971) AGAP (test code = 5 2-16 2906173098) BUN (test code = 22 mg/dL 7-23 4639309933) GLUCOSE (test code = 128 mg/dL 70-110 H 9846511695) CREATININE (test code = 0.87 mg/dL 0.60-1.25 9286758124) CALCIUM (test code = 8.2 mg/dL 8.6-10.6 L 4250318508) eGFR (test code = 89.8 mL/min/1.73m2 0514308939) DEWAYNE (test code = DEWAYNE) Association of [...] tests). Lab Interpretation Abnormal (test code = 99999-2) [facility] 10:10:03 Test Item Value Reference Range Interpretation Comments PHOSPHORUS (test code = 6717312016) 4.2 mg/dL 2.5-5.0 Lab Interpretation (test code = Normal 48274-5) [facility] 10:10:03 Test Item Value Reference Range Interpretation Comments MAGNESIUM (test code = 2679740575) 2.0 mg/dL 1.7-2.4 Lab Interpretation (test code = Normal 45440-6) [facility] (NA, K, CL, CO2, GLUCOSE, BUN, CREATININE, CA)2022-05-30 10:10:03 Test Item Value Reference Range Interpretation Comments NA (test code = 133 mmol/L 135-145 L 5983048055) K (test code = 3.9 mmol/L 3.5-5.0 1550486746) CL (test code = 103 mmol/L 98-108 6575267462) CO2 TOTAL (test code = 25 mmol/L 23-31 6204547005) AGAP (test code = 5 2-16 3930833018) BUN (test code = 22 mg/dL 7-23 8844827330) GLUCOSE (test code = 128 mg/dL 70-110 H 2218511781) CREATININE (test code = 0.87 mg/dL 0.60-1.25 9101259419) CALCIUM (test code = 8.2 mg/dL 8.6-10.6 L 1288209701) eGFR (test code = 89.8 mL/min/1.73m2 9184842886) DEWAYNE (test code = DEWAYNE) Association of [...] tests). Lab Interpretation Abnormal (test code = 36674-6) [facility]2023-04-17 09:52:38 Test Item Value Reference Range Interpretation Comments Fibrinogen (test code = 3755740151) 86 mg/dL 167-453 LL Lab Interpretation (test code = Abnormal 95641-1) [facility]2023-04-17 09:52:38 Test Item Value Reference Range Interpretation Comments Fibrinogen (test code = 1972075196) 86 mg/dL 167-453 LL Lab Interpretation (test code = Abnormal 98700-0) [facility]2023-04-17 09:52:38 Test Item Value Reference Range Interpretation Comments Fibrinogen (test code = 7422136515) 86 mg/dL 167-453 LL Lab Interpretation (test code = Abnormal 27236-4) [facility] Test Item Value Reference Range Interpretation Comments Fibrinogen (test code = 3712269764) 86 mg/dL 167-453 LL Lab Interpretation (test code = Abnormal 67311-3) [place] 25431023-04-17 09:51:57 Test Item Value Reference Range Interpretation Comments APTT Patient (test code 44 See_Comment H [Au tomated message] = 3173-2) The system [employer] generated this result transmitted ref erence range: 26 - 36 Seconds. The reference range was not used to int erpret this result as normal/abnormal . Lab Interpretation (test Abnormal code = 40912-5) [place] 25431023-04-17 09:51:57 Test Item Value Reference Range Interpretation Comments APTT Patient (test code 44 See_Comment H [Au tomated message] = 3173-2) The system [employer] generated this result transmitted ref erence range: 26 - 36 Seconds. The reference range was not used to int erpret this result as normal/abnormal . Lab Interpretation (test Abnormal code = 65915-4) [place] 25431023-04-17 09:51:57 Test Item Value Reference Range Interpretation Comments APTT Patient (test code 44 See_Comment H [Au tomated message] = 3173-2) The system [employer] generated this result transmitted ref erence range: 26 - 36 Seconds. The reference range was not used to int erpret this result as normal/abnormal . Lab Interpretation (test Abnormal code = 12421-0) [place] 25431023-04-17 09:51:57 Test Item Value Reference Range Interpretation Comments APTT Patient (test code 44 See_Comment H [Au tomated message] = 3173-2) The system [employer] generated this result transmitted ref erence range: 26 - 36 Seconds. The reference range was not used to int erpret this result as normal/abnormal . Lab Interpretation (test Abnormal code = 06549-9) [facility] 07:28:55 Test Item Value Reference Range Interpretation Comments Fibrinogen (test code = 3952863202) 73 mg/dL 167-453 LL Lab Interpretation (test code = Abnormal 84087-9) [facility]2023-04-[facility] 07:28:55 Test Item Value Reference Range Interpretation Comments Fibrinogen (test code = 6089789418) 73 mg/dL 167-453 LL Lab Interpretation (test code = Abnormal 16086-9) [facility]2023-04-17 07:28:55 Test Item Value Reference Range Interpretation Comments Fibrinogen (test code = 8761394193) 73 mg/dL 167-453 LL Lab Interpretation (test code = Abnormal 60841-1) [facility]2023-04-17 07:28:55 Test Item Value Reference Range Interpretation Comments Fibrinogen (test code = 2418948982) 73 mg/dL 167-453 LL Lab Interpretation (test code = Abnormal 18376-8) [facility] (for use with Heparin Drip)2022-05-30 06:39:14 Test Item Value Reference Range Interpretation Comments APTT Patient (test code 44 See_Comment H [Au tomated message] = 3173-2) The system [employer] generated this result transmitted ref erence range: 26 - 36 Seconds. The reference range was not used to int erpret this result as normal/abnormal . Lab Interpretation (test Abnormal code = 81329-2) [facility] (for use with Heparin Drip)2022-05-30 06:39:14 Test Item Value Reference Range Interpretation Comments APTT Patient (test code 44 See_Comment H [Au tomated message] = 3173-2) The system [employer] generated this result transmitted ref erence range: 26 - 36 Seconds. The reference range was not used to int erpret this result as normal/abnormal . Lab Interpretation (test Abnormal code = 11330-0) [facility] (for use with Heparin Drip)2022-05-30 06:39:14 Test Item Value Reference Range Interpretation Comments APTT Patient (test code 44 See_Comment H [Au tomated message] = 3173-2) The system [employer] generated this result transmitted ref erence range: 26 - 36 Seconds. The reference range was not used to int erpret this result as normal/abnormal . Lab Interpretation (test Abnormal code = 40615-5) [facility] (for use with Heparin Drip)2022-05-30 06:39:14 Test Item Value Reference Range Interpretation Comments APTT Patient (test code 44 See_Comment H [Au tomated message] = 3023-2) The system [employer] generated this result transmitted ref erence range: 26 - 36 Seconds. The reference range was not used to int erpret this result as normal/abnormal . Lab Interpretation (test Abnormal code = 02888-4) [facility] Test Item Value Reference Range Interpretation Comments Fibrinogen (test code = 2979365117) 71 mg/dL 167-453 LL Lab Interpretation (test code = Abnormal 27760-4) [facility] 05:26:04 Test Item Value Reference Range Interpretation Comments Fibrinogen (test code = 9200414618) 71 mg/dL 167-453 LL Lab Interpretation (test code = Abnormal 85240-2) [facility]2023-04-[facility] 05:26:04 Test Item Value Reference Range Interpretation Comments Fibrinogen (test code = 0980150227) 71 mg/dL 167-453 LL Lab Interpretation (test code = Abnormal 84012-6) [facility]:04 Test Item Value Reference Range Interpretation Comments Fibrinogen (test code = 9401218143) 71 mg/dL 167-453 LL Lab Interpretation (test code = Abnormal 58021-1) [facility]:05 Test Item Value Reference Range Interpretation Comments Fibrinogen (test code = 2581891164) 98 mg/dL 167-453 LL Lab Interpretation (test code = Abnormal 43794-8) [facility] Test Item Value Reference Range Interpretation Comments Fibrinogen (test code = 9167606956) 98 mg/dL 167-453 LL Lab Interpretation (test code = Abnormal 78442-5) [facility]:05 Test Item Value Reference Range Interpretation Comments Fibrinogen (test code = 8479298798) 98 mg/dL 167-453 LL Lab Interpretation (test code = Abnormal 16307-8) [facility]2023-04-16 23:49:05 Test Item Value Reference Range Interpretation Comments Fibrinogen (test code = 8830810993) 98 mg/dL 167-453 LL Lab Interpretation (test code = Abnormal 98622-3) [facility]2023-[facility] 21:48:37 Test Item Value Reference Range Interpretation Comments Fibrinogen (test code = 2446437986) 113 mg/dL 167-453 L Lab Interpretation (test code = Abnormal 87496-9) [facility]2023-04-16 21:48:37 Test Item Value Reference Range Interpretation Comments Fibrinogen (test code = 2964454256) 113 mg/dL 167-453 L Lab Interpretation (test code = Abnormal 10763-6) [facility]2023-[facility]-16 21:48:37 Test Item Value Reference Range Interpretation Comments Fibrinogen (test code = 0554403142) 113 mg/dL 167-453 L Lab Interpretation (test code = Abnormal 72792-4) [facility]23-[facility]-16 21:48:37 Test Item Value Reference Range Interpretation Comments Fibrinogen (test code = 6670769367) 113 mg/dL 167-453 L Lab Interpretation (test code = Abnormal 74047-6) [facility] METABOLIC PANEL (NA, K, CL, CO2, GLUCOSE, BUN, CREATININE, CA)2022-05-29 15:33:06 Test Item Value Reference Range Interpretation Comments NA (test code = 139 mmol/L 135-145 0809028085) K (test code = 4.2 mmol/L 3.5-5.0 3038607101) CL (test code = 104 mmol/L 98-108 7578458583) CO2 TOTAL (test code = 29 mmol/L 23-31 4202276653) AGAP (test code = 6 2-16 3847158256) BUN (test code = 25 mg/dL 7-23 H 5928989120) GLUCOSE (test code = 85 mg/dL 70-110 7151901447) CREATININE (test code = 1.02 mg/dL 0.60-1.25 1631565131) CALCIUM (test code = 8.7 mg/dL 8.6-10.6 1274137804) eGFR (test code = 74.8 mL/min/1.73m2 8310381187) DEWAYNE (test code = DEWAYNE) Association of [...] tests). Lab Interpretation Abnormal (test code = 97470-1) [facility] METABOLIC PANEL (NA, K, CL, CO2, GLUCOSE, BUN, CREATININE, CA)2022-05-29 15:33:06 Test Item Value Reference Range Interpretation Comments NA (test code = 139 mmol/L 135-145 7911654656) K (test code = 4.2 mmol/L 3.5-5.0 5527873001) CL (test code = 104 mmol/L 98-108 3534848891) CO2 TOTAL (test code = 29 mmol/L 23-31 5853926244) AGAP (test code = 6 2-16 3271642150) BUN (test code = 25 mg/dL 7-23 H 7158288001) GLUCOSE (test code = 85 mg/dL 70-110 4927595962) CREATININE (test code = 1.02 mg/dL 0.60-1.25 2859284472) CALCIUM (test code = 8.7 mg/dL 8.6-10.6 2765764607) eGFR (test code = 74.8 mL/min/1.73m2 6908928812) DEWAYNE (test code = DEWAYNE) Association of [...] tests). Lab Interpretation Abnormal (test code = 89370-7) [facility] METABOLIC PANEL (NA, K, CL, CO2, GLUCOSE, BUN, CREATININE, CA)2022-05-29 15:33:06 Test Item Value Reference Range Interpretation Comments NA (test code = 139 mmol/L 135-145 7578758113) K (test code = 4.2 mmol/L 3.5-5.0 7322088265) CL (test code = 104 mmol/L 98-108 5802121477) CO2 TOTAL (test code = 29 mmol/L 23-31 9022932577) AGAP (test code = 6 2-16 9489863502) BUN (test code = 25 mg/dL 7-23 H 1767227230) GLUCOSE (test code = 85 mg/dL 70-110 0252361520) CREATININE (test code = 1.02 mg/dL 0.60-1.25 1261870295) CALCIUM (test code = 8.7 mg/dL 8.6-10.6 6166385642) eGFR (test code = 74.8 mL/min/1.73m2 2751243680) DEWAYNE (test code = DEWAYNE) Association of [...] tests). Lab Interpretation Abnormal (test code = 74691-4) [facility] METABOLIC PANEL (NA, K, CL, CO2, GLUCOSE, BUN, CREATININE, CA)2022-05-29 15:33:06 Test Item Value Reference Range Interpretation Comments NA (test code = 139 mmol/L 135-145 2291170414) K (test code = 4.2 mmol/L 3.5-5.0 3730209040) CL (test code = 104 mmol/L 98-108 7689731203) CO2 TOTAL (test code = 29 mmol/L 23-31 5682097608) AGAP (test code = 6 2-16 4525754406) BUN (test code = 25 mg/dL 7-23 H 3355578098) GLUCOSE (test code = 85 mg/dL 70-110 2301064643) CREATININE (test code = 1.02 mg/dL 0.60-1.25 3464536146) CALCIUM (test code = 8.7 mg/dL 8.6-10.6 8481056950) eGFR (test code = 74.8 mL/min/1.73m2 4888071860) DEWAYNE (test code = DEWAYNE) Association of [...] tests). Lab Interpretation Abnormal (test code = 54711-4) [facility] Test Item Value Reference Range Interpretation Comments Fibrinogen (test code = 5250723219) 368 mg/dL 167-453 Lab Interpretation (test code = Normal 59916-9) [facility] Test Item Value Reference Range Interpretation Comments Fibrinogen (test code = 7585506642) 368 mg/dL 167-453 Lab Interpretation (test code = Normal 91680-7) [facility]:42 Test Item Value Reference Range Interpretation Comments Fibrinogen (test code = 3834133151) 368 mg/dL 167-453 Lab Interpretation (test code = Normal 74986-1) [facility]:42 Test Item Value Reference Range Interpretation Comments Fibrinogen (test code = 4846795473) 368 mg/dL 167-453 Lab Interpretation (test code = Normal 24330-6) [facility] WITH [id number] 15:09:40 Test Item Value Reference Range Interpretation Comments WBC (test code = 8.27 See_Comment [Automated 6690-2) message] The sy stem which generated this result transmitted reference range : 4.20 - 10.70 10*3/?L. The reference range was not used to interpret this result as normal/abnormal . RBC (test code = 4.18 See_Comment L [Automated 769-8) message] The sy stem which generated this [...] RDW-SD (test code = 47.6 fL 38.5-51.6 40404-7) RDW-CV (test code = 14.7 % 12.1-15.4 788-0) PLT (test code = 252 See_Comment [Automated 777-3) message] The sy stem which generated this result transmitted reference range : 150 - 328 10*3/ ?L. The reference r mitra was not used to interpret this result as normal/abnormal . MPV (test code = 9.1 fL 9.8-13.0 L 42078-3) NRBC/100 WBC (test 0.0 See_Comment [Automat ed code = 3015345436) message] The system which generated this result transmitted reference range : 0.0 - 10.0 /100 WBCs. The refer ence range was not u sed to interpret th is result as normal/abnormal . NRBC x10^3 (test code See_Comment [Auto mated = 2038652825) message] The s ystem which generated this result transmitted reference range : 10*3/?L. The reference range was not used to interpret this result as normal/abnormal . GRAN MAT (NEUT) % 53.7 % (test code = 770-8) IMM GRAN % (test code 1.90 % = 1631607409) LYMPH % (test code = 29.6 % 736-9) MONO % (test code = 8.1 % 5905-5) EOS % (test code = 5.7 % 713-8) BASO % (test code = 1.0 % 706-2) GRAN MAT x10^3(ANC) 4.44 10*3/uL 1.99-6.95 (test code = 4358515450) IMM GRAN x10^3 (test 0.16 10*3/uL 0.00-0.06 H code = 2734920669) LYMPH x10^3 (test code 2.45 10*3/uL 1.09-3.23 = 731-0) MONO x10^3 (test code 0.67 10*3/uL 0.36-1.02 = 742-7) EOS x10^3 (test code = 0.47 10*3/uL 0.06-0.53 711-2) BASO x10^3 (test code 0.08 10*3/uL 0.01-0.09 = 704-7) Lab Interpretation Abnormal (test code = 03118-0) [facility] WITH [id number] 15:09:40 Test Item Value Reference Range Interpretation [...] RDW-SD (test code = 47.6 fL 38.5-51.6 34696-8) RDW-CV (test code = 14.7 % 12.1-15.4 788-0) PLT (test code = 252 See_Comment [Automated 777-3) message] The sy stem which generated this result transmitted reference range : 150 - 328 10*3/ ?L. The reference r mitra was not used to interpret this result as normal/abnormal . MPV (test code = 9.1 fL 9.8-13.0 L 12803-8) NRBC/100 WBC (test 0.0 See_Comment [Automat ed code = 0904675293) message] The system which generated this result transmitted reference range : 0.0 - 10.0 /100 WBCs. The refer ence range was not u sed to interpret th is result as normal/abnormal . NRBC x10^3 (test code See_Comment [Auto mated = 4792609233) message] The s ystem which generated this result transmitted reference range : 10*3/?L. The reference range was not used to interpret this result as normal/abnormal . GRAN MAT (NEUT) % 53.7 % (test code = 770-8) IMM GRAN % (test code 1.90 % = 0838186772) LYMPH % (test code = 29.6 % 736-9) MONO % (test code = 8.1 % 5905-5) EOS % (test code = 5.7 % 713-8) BASO % (test code = 1.0 % 706-2) GRAN MAT x10^3(ANC) 4.44 10*3/uL 1.99-6.95 (test code = 7537003358) IMM GRAN x10^3 (test 0.16 10*3/uL 0.00-0.06 H code = 2262344713) LYMPH x10^3 (test code 2.45 10*3/uL 1.09-3.23 = 731-0) MONO x10^3 (test code 0.67 10*3/uL 0.36-1.02 = 742-7) EOS x10^3 (test code = 0.47 10*3/uL 0.06-0.53 711-2) BASO x10^3 (test code 0.08 10*3/uL 0.01-0.09 = 704-7) Lab Interpretation Abnormal (test code = 62253-6) [facility] WITH [id number] 15:09:40 Test Item Value Reference Range Interpretation Comments WBC (test code = 8.27 See_Comment [Automated 5590-2) message] The sy stem which generated this result transmitted reference range : 4.20 - 10.70 10*3/?L. The reference range was not used to interpret this result as normal/abnormal . RBC (test code = 4.18 See_Comment L [Automated 929-8) message] The sy stem which generated this [...] RDW-SD (test code = 47.6 fL 38.5-51.6 47102-5) RDW-CV (test code = 14.7 % 12.1-15.4 788-0) PLT (test code = 252 See_Comment [Automated 777-3) message] The sy stem which generated this result transmitted reference range : 150 - 328 10*3/ ?L. The reference r mitra was not used to interpret this result as normal/abnormal . MPV (test code = 9.1 fL 9.8-13.0 L 11638-8) NRBC/100 WBC (test 0.0 See_Comment [Automat ed code = 9949401357) message] The system which generated this result transmitted reference range : 0.0 - 10.0 /100 WBCs. The refer ence range was not u sed to interpret th is result as normal/abnormal . NRBC x10^3 (test code See_Comment [Auto mated = 9468380315) message] The s ystem which generated this result transmitted reference range : 10*3/?L. The reference range was not used to interpret this result as normal/abnormal . GRAN MAT (NEUT) % 53.7 % (test code = 770-8) IMM GRAN % (test code 1.90 % = 0317423680) LYMPH % (test code = 29.6 % 736-9) MONO % (test code = 8.1 % 5905-5) EOS % (test code = 5.7 % 713-8) BASO % (test code = 1.0 % 706-2) GRAN MAT x10^3(ANC) 4.44 10*3/uL 1.99-6.95 (test code = 5496167940) IMM GRAN x10^3 (test 0.16 10*3/uL 0.00-0.06 H code = 9924238294) LYMPH x10^3 (test code 2.45 10*3/uL 1.09-3.23 = 731-0) MONO x10^3 (test code 0.67 10*3/uL 0.36-1.02 = 742-7) EOS x10^3 (test code = 0.47 10*3/uL 0.06-0.53 711-2) BASO x10^3 (test code 0.08 10*3/uL 0.01-0.09 = 704-7) Lab Interpretation Abnormal (test code = 02719-9) [facility] WITH [id number] 15:09:40 Test Item Value Reference Range Interpretation Comments WBC (test code = 8.27 See_Comment [Automated 6143-2) message] The sy stem which generated this result transmitted reference range : 4.20 - 10.70 10*3/?L. The reference range was not used to interpret this result as normal/abnormal . RBC (test code = 4.18 See_Comment L [Automated 829-8) message] The sy [...] RDW-SD (test code = 47.6 fL 38.5-51.6 66521-3) RDW-CV (test code = 14.7 % 12.1-15.4 788-0) PLT (test code = 252 See_Comment [Automated 477-3) message] The sy stem which generated this result transmitted reference range : 150 - 328 10*3/ ?L. The reference r mitra was not used to interpret this result as normal/abnormal . MPV (test code = 9.1 fL 9.8-13.0 L 19019-9) NRBC/100 WBC (test 0.0 See_Comment [Automat ed code = 2251020098) message] The system which generated this result transmitted reference range : 0.0 - 10.0 /100 WBCs. The refer ence range was not u sed to interpret th is result as normal/abnormal . NRBC x10^3 (test code See_Comment [Auto mated = 3078653929) message] The s ystem which generated this result transmitted reference range : 10*3/?L. The reference range was not used to interpret this result as normal/abnormal . GRAN MAT (NEUT) % 53.7 % (test code = 770-8) IMM GRAN % (test code 1.90 % = 5766293777) LYMPH % (test code = 29.6 % 736-9) MONO % (test code = 8.1 % 5905-5) EOS % (test code = 5.7 % 713-8) BASO % (test code = 1.0 % 706-2) GRAN MAT x10^3(ANC) 4.44 10*3/uL 1.99-6.95 (test code = 2471596351) IMM GRAN x10^3 (test 0.16 10*3/uL 0.00-0.06 H code = 5032670565) LYMPH x10^3 (test code 2.45 10*3/uL 1.09-3.23 = 731-0) MONO x10^3 (test code 0.67 10*3/uL 0.36-1.02 = 742-7) EOS x10^3 (test code = 0.47 10*3/uL 0.06-0.53 711-2) BASO x10^3 (test code 0.08 10*3/uL 0.01-0.09 = 704-7) Lab Interpretation Abnormal (test code = 91351-1) [facility] 11:36:15 Test Item Value Reference Range Interpretation Comments APTT Patient (test code 52 See_Comment H [Au tomated message] = 9923-2) The system [employer] generated this result transmitted ref erence range: 26 - 36 Seconds. The reference range was not used to int erpret this result as normal/abnormal . Lab Interpretation (test Abnormal code = 18882-5) [facility] (for use with Heparin Infusion)2022-05-29 11:36:15 Test Item Value Reference Range Interpretation Comments APTT Patient (test code 52 See_Comment H [Au tomated message] = 3173-2) The system [employer] generated this result transmitted ref erence range: 26 - 36 Seconds. The reference range was not used to int erpret this result as normal/abnormal . Lab Interpretation (test Abnormal code = 56836-9) [facility] (for use with Heparin Infusion)2022-05-29 11:36:15 Test Item Value Reference Range Interpretation Comments APTT Patient (test code 52 See_Comment H [Au tomated message] = 3173-2) The system [employer] generated this result transmitted ref erence range: 26 - 36 Seconds. The reference range was not used to int erpret this result as normal/abnormal . Lab Interpretation (test Abnormal code = 95775-1) [facility] (for use with Heparin Infusion)2022-05-29 11:36:15 Test Item Value Reference Range Interpretation Comments APTT Patient (test code 52 See_Comment H [Au tomated message] = 3173-2) The system [employer] generated this result transmitted ref erence range: 26 - 36 Seconds. The reference range was not used to int erpret this result as normal/abnormal . Lab Interpretation (test Abnormal code = 53101-2) [facility] METABOLIC PANEL (NA, K, CL, CO2, GLUCOSE, BUN, CREATININE, CA)2022-05-29 11:35:55 Test Item Value Reference Range Interpretation Comments NA (test code = 136 mmol/L 135-145 5963509834) K (test code = 4.9 mmol/L 3.5-5.0 Slight 5113906282) hemolysis CL (test code = 106 mmol/L 98-108 5533385861) CO2 TOTAL (test code 28 mmol/L 23-31 = 4617683509) AGAP (test code = 2 2-16 4832024649) BUN (test code = 26 mg/dL 7-23 H Slight 2019756441) hemolysis GLUCOSE (test code = 88 mg/dL 70-110 5032059774) CREATININE (test code 0.86 mg/dL 0.60-1.25 = 1551891231) CALCIUM (test code = 8.4 mg/dL 8.6-10.6 L 1288232983) eGFR (test code = 91.0 mL/min/1.73m2 7592997137) DEWAYNE (test code = DEWAYNE) Association of [...] tests). Lab Interpretation Abnormal (test code = 91342-8) [facility]:55 Test Item Value Reference Range Interpretation Comments MAGNESIUM (test code = 0855540810) 2.4 mg/dL 1.7-2.4 Lab Interpretation (test code = Normal 82373-4) [facility] (NA, K, CL, CO2, GLUCOSE, BUN, CREATININE, CA)2022-05-29 11:35:55 Test Item Value Reference Range Interpretation Comments NA (test code = 136 mmol/L 135-145 3519254354) K (test code = 4.9 mmol/L 3.5-5.0 Slight 5904836620) hemolysis CL (test code = 106 mmol/L 98-108 7518712244) CO2 TOTAL (test code 28 mmol/L 23-31 = 6835799249) AGAP (test code = 2 2-16 8853930500) BUN (test code = 26 mg/dL 7-23 H Slight 5306847277) hemolysis GLUCOSE (test code = 88 mg/dL 70-110 9435330398) CREATININE (test code 0.86 mg/dL 0.60-1.25 = 5402902385) CALCIUM (test code = 8.4 mg/dL 8.6-10.6 L 6498472655) eGFR (test code = 91.0 mL/min/1.73m2 5154964920) DEWAYNE (test code = DEWAYNE) Association of [...] tests). Lab Interpretation Abnormal (test code = 34674-3) [facility] 11:35:55 Test Item Value Reference Range Interpretation Comments MAGNESIUM (test code = 6021538867) 2.4 mg/dL 1.7-2.4 Lab Interpretation (test code = Normal 02911-6) [facility] (NA, K, CL, CO2, GLUCOSE, BUN, CREATININE, CA)2022-05-29 11:35:55 Test Item Value Reference Range Interpretation Comments NA (test code = 136 mmol/L 135-145 5722304299) K (test code = 4.9 mmol/L 3.5-5.0 Slight 8973409309) hemolysis CL (test code = 106 mmol/L 98-108 5718338937) CO2 TOTAL (test code 28 mmol/L 23-31 = 7711254036) AGAP (test code = 2 2-16 0859833796) BUN (test code = 26 mg/dL 7-23 H Slight 8355972942) hemolysis GLUCOSE (test code = 88 mg/dL 70-110 6283094664) CREATININE (test code 0.86 mg/dL 0.60-1.25 = 0063325561) CALCIUM (test code = 8.4 mg/dL 8.6-10.6 L 4696457079) eGFR (test code = 91.0 mL/min/1.73m2 2691904916) DEWAYNE (test code = DEWAYNE) Association of [...] tests). Lab Interpretation Abnormal (test code = 85944-6) [facility] 11:35:55 Test Item Value Reference Range Interpretation Comments MAGNESIUM (test code = 2679594981) 2.4 mg/dL 1.7-2.4 Lab Interpretation (test code = Normal 06243-3) [facility] (NA, K, CL, CO2, GLUCOSE, BUN, CREATININE, CA)2022-05-29 11:35:55 Test Item Value Reference Range Interpretation Comments NA (test code = 136 mmol/L 135-145 1202866663) K (test code = 4.9 mmol/L 3.5-5.0 Slight 1732083064) hemolysis CL (test code = 106 mmol/L 98-108 9934269830) CO2 TOTAL (test code 28 mmol/L 23-31 = 1285640023) AGAP (test code = 2 2-16 3799610317) BUN (test code = 26 mg/dL 7-23 H Slight 6247049644) hemolysis GLUCOSE (test code = 88 mg/dL 70-110 0240064467) CREATININE (test code 0.86 mg/dL 0.60-1.25 = 9906480927) CALCIUM (test code = 8.4 mg/dL 8.6-10.6 L 2123464585) eGFR (test code = 91.0 mL/min/1.73m2 6722046249) DEWAYNE (test code = DEWAYNE) Association of [...] tests). Lab Interpretation Abnormal (test code = 12313-8) [facility] 11:35:55 Test Item Value Reference Range Interpretation Comments MAGNESIUM (test code = 1150461200) 2.4 mg/dL 1.7-2.4 Lab Interpretation (test code = Normal 68625-1) [facility] Without [id number] 11:28:31 Test Item Value Reference Range Interpretation Comments WBC (test code = 6690-2) 7.81 See_Comment [A utomated message] The system [employer] generated this result transmit elizabeth reference range : 4.20 - 10.70 10*3/?L. The reference range was not used to interpret this result as normal/abnormal . RBC (test code = 789-8) 4.04 See_Comment L [Au tomated message] The system [employer] generated this result transmit elizabeth reference range [...] 252 See_Comment [Au tomated message] The system [employer] generated this result transmit elizabeth reference range : 150 - 328 10*3/?L. The reference range was not used to interpret this result as normal/abnormal . MPV (test code = 9.6 fL 9.8-13.0 L 26132-2) RDW-CV (test code = 14.6 % 12.1-15.4 788-0) RDW-SD (test code = 46.5 fL 38.5-51.6 87637-5) NRBC x10^3 (test code = See_Comment [Au tomated message] 6139758420) The system [employer] generated this result transmit elizabeth reference range : 10*3/?L. The reference range was not used to interpret this result as normal/abnormal . NRBC/100 WBC (test code 0.0 See_Comment [Au tomated message] = 2274810659) [facility] this result transmit elizabeth reference range : 0.0 - 10.0 /100 WBC s. The reference r mitra was not used to interpret this result as normal/abnormal . IPF % (test code = 6397611908) Lab Interpretation (test Abnormal code = 47506-3) [facility] Without [id number] 11:28:31 Test Item Value Reference Range Interpretation Comments WBC (test code = 6690-2) 7.81 See_Comment [A utomated message] The system [employer] generated this result transmit elizabeth reference range : 4.20 - 10.70 10*3/?L. The reference range was not used to interpret this result as normal/abnormal . RBC (test code = 789-8) 4.04 See_Comment L [Au tomated message] The system [employer] generated this result transmit elizabeth reference range [...] 252 See_Comment [Au tomated message] The system [employer] generated this result transmit elizabeth reference range : 150 - 328 10*3/?L. The reference range was not used to interpret this result as normal/abnormal . MPV (test code = 9.6 fL 9.8-13.0 L 74893-3) RDW-CV (test code = 14.6 % 12.1-15.4 788-0) RDW-SD (test code = 46.5 fL 38.5-51.6 59305-4) NRBC x10^3 (test code = See_Comment [Au tomated message] 8085320635) The system [employer] generated this result transmit elizabeth reference range : 10*3/?L. The reference range was not used to interpret this result as normal/abnormal . NRBC/100 WBC (test code 0.0 See_Comment [Au tomated message] = 9494008761) [facility] generated this result transmit elizabeth reference range : 0.0 - 10.0 /100 WBC s. The reference r mitra was not used to interpret this result as normal/abnormal . IPF % (test code = 7624525237) Lab Interpretation (test Abnormal code = 23819-0) [facility] Without [id number] 11:28:31 Test Item Value Reference Range Interpretation Comments WBC (test code = 6690-2) 7.81 See_Comment [A utomated message] The system [facility] generated this result transmit elizabeth reference range : 4.20 - 10.70 10*3/?L. The reference range was not used to interpret this result as normal/abnormal . RBC (test code = 789-8) 4.04 See_Comment L [Au tomated message] The system [facility] generated this result transmit elizabeth reference range [...] 252 See_Comment [Au tomated message] The system [facility] generated this result transmit elizabeth reference range : 150 - 328 10*3/?L. The reference range was not used to interpret this result as normal/abnormal . MPV (test code = 9.6 fL 9.8-13.0 L 55371-6) RDW-CV (test code = 14.6 % 12.1-15.4 788-0) RDW-SD (test code = 46.5 fL 38.5-51.6 58244-3) NRBC x10^3 (test code = See_Comment [Au tomated message] 2526266107) The system [facility] [employer] generated this result transmit elizabeth reference range : 10*3/?L. The reference range was not used to interpret this result as normal/abnormal . NRBC/100 WBC (test code 0.0 See_Comment [Au tomated message] = 4657637667) The system [facility] generated this result transmit elizabeth reference range : 0.0 - 10.0 /100 WBC s. The reference r mitra was not used to interpret this result as normal/abnormal . IPF % (test code = 3573611224) Lab Interpretation (test Abnormal code = 21010-8) [facility] Without [id number] 11:28:31 Test Item Value Reference Range Interpretation Comments WBC (test code = 6690-2) 7.81 See_Comment [A utomated message] The system [employer] generated this result transmit elizabeth reference range : 4.20 - 10.70 10*3/?L. The reference range was not used to interpret this result as normal/abnormal . RBC (test code = 789-8) 4.04 See_Comment L [Au tomated message] The system [employer] generated this result transmit elizabeth reference range [...] 252 See_Comment [Au tomated message] The system [employer] generated this result transmit elizabeth reference range : 150 - 328 10*3/?L. The reference range was not used to interpret this result as normal/abnormal . MPV (test code = 9.6 fL 9.8-13.0 L 03490-2) RDW-CV (test code = 14.6 % 12.1-15.4 788-0) RDW-SD (test code = 46.5 fL 38.5-51.6 44921-1) NRBC x10^3 (test code = See_Comment [Au tomated message] 1234106773) The system [employer] generated this result transmit elizabeth reference range : 10*3/?L. The reference range was not used to interpret this result as normal/abnormal . NRBC/100 WBC (test code 0.0 See_Comment [Au tomated message] = 1810484653) [facility] generated this result transmit elizabeth reference range : 0.0 - 10.0 /100 WBC s. The reference r mitra was not used to interpret this result as normal/abnormal . IPF % (test code = 3639932553) Lab Interpretation (test Abnormal code = 56632-7) [facility] [id number] 18:45:15 Test Item Value Reference Range Interpretation Comments Factor 2 [id number] Heterozygous Normal Mutation (test code = 2280801683) DEWAYNE (test code = Phenotype DEWAYNE) Characteristics: [...] further increased for homozygotes. Mutation Tested: F2 c.18710F>A (G10613D). Clinical Sensitivity for Venous Thrombosis: Approximately 10%. Methodology: Polymerase chain reaction and fluorescence monitoring Limitations: The performance of this assay has not been evaluated with samples from pediatric patients. Counseling and informed consent are recommended for genetic testing. References: OMIM: 435524 [email or web address]://ghr.nlm.nih.gov/c ondition/prothrombin-thro mbophilia [facility] [id number] 18:45:15 Test Item Value Reference Range Interpretation Comments FACTOR 5 LEIDEN Heterozygous Normal (test code = 9745270413) DEWAYNE (test code = Phenotype Characteristics: DEWAYNE) [...] the Factor 5 Leiden mutation is c.1601G>A (p.Znf141Ozj). Methodology: Polymerase chain reaction and fluorescence monitoring. Limitations: Rare Factor V mutations (D0163T, Y5806Z, and D0409R) and any additional SNPs in the probe binding region may interfere with the target detection and yield an INVALID result. The performance of this assay has not been evaluated with samples from pediatric patients. Counseling and informed consent are recommended for genetic testing. References: OMIM: 857959 https://ghr.nlm.nih.gov/co ndition/zrndpt-m-chdbfb-th rombophilia [facility] D73393N [id number] 18:45:15 Test Item Value Reference Range Interpretation Comments Factor 2 T36227U Heterozygous Normal Mutation (test code = 1059257123) DEWAYNE (test code = Phenotype DEWAYNE) Characteristics: [...] further increased for homozygotes. Mutation Tested: F2 c.65368C>A (A66995S). Clinical Sensitivity for Venous Thrombosis: Approximately 10%. Methodology: Polymerase chain reaction and fluorescence monitoring Limitations: The performance of this assay has not been evaluated with samples from pediatric patients. Counseling and informed consent are recommended for genetic testing. References: OMIM: 145135 https://ghr.nlm.nih.gov/c ondition/prothrombin-thro mbophilia [facility] [id number] 18:45:15 Test Item Value Reference Range Interpretation Comments FACTOR 5 LEIDEN Heterozygous Normal (test code = 3210224811) DEWAYNE (test code = Phenotype Characteristics: DEWAYNE) [...] the Factor 5 Leiden mutation is c.1601G>A (p.Gsl473Ubz). Methodology: Polymerase chain reaction and fluorescence monitoring. Limitations: Rare Factor V mutations (O0934U, Y9991R, and H4659K) and any additional SNPs in the probe binding region may interfere with the target detection and yield an INVALID result. The performance of this assay has not been evaluated with samples from pediatric patients. Counseling and informed consent are recommended for genetic testing. References: OMIM: 412145 https://ghr.nlm.nih.gov/co ndition/qyabce-c-djtqdm-th rombophilia [facility] T11409D [id number] 18:45:15 Test Item Value Reference Range Interpretation Comments Factor 2 G69554W Heterozygous Normal Mutation (test code = 1071906782) DEWAYNE (test code = Phenotype DEWAYNE) Characteristics: [...] further increased for homozygotes. Mutation Tested: F2 c.65683L>A (G36838G). Clinical Sensitivity for Venous Thrombosis: Approximately 10%. Methodology: Polymerase chain reaction and fluorescence monitoring Limitations: The performance of this assay has not been evaluated with samples from pediatric patients. Counseling and informed consent are recommended for genetic testing. References: OMIM: 701600 https://ghr.nlm.nih.gov/c ondition/prothrombin-thro mbophilia [facility] [id number] 18:45:15 Test Item Value Reference Range Interpretation Comments FACTOR 5 LEIDEN Heterozygous Normal (test code = 2752943123) DEWAYNE (test code = Phenotype Characteristics: DEWAYNE) [...] the Factor 5 Leiden mutation is c.1601G>A (p.Qpz360Lho). Methodology: Polymerase chain reaction and fluorescence monitoring. Limitations: Rare Factor V mutations (G6042A, S9627M, and M5561N) and any additional SNPs in the probe binding region may interfere with the target detection and yield an INVALID result. The performance of this assay has not been evaluated with samples from pediatric patients. Counseling and informed consent are recommended for genetic testing. References: OMIM: 994846 https://r.nlm.nih.gov/co ndition/txrtqo-e-owuzsd- rombophilia [facility] T84679F [id number] 18:45:15 Test Item Value Reference Range Interpretation Comments Factor 2 D08469I Heterozygous Normal Mutation (test code = 4523513959) DEWAYNE (test code = Phenotype DEWAYNE) Characteristics: [...] further increased for homozygotes. Mutation Tested: F2 c.30797Z>A (H03904U). Clinical Sensitivity for Venous Thrombosis: Approximately 10%. Methodology: Polymerase chain reaction and fluorescence monitoring Limitations: The performance of this assay has not been evaluated with samples from pediatric patients. Counseling and informed consent are recommended for genetic testing. References: OMIM: 104618 https://ghr.nlm.nih.gov/c ondition/prothrombin-thro mbophilia [facility] [id number] 18:45:15 Test Item Value Reference Range Interpretation Comments FACTOR 5 LEIDEN Heterozygous Normal (test code = 6021018888) DEWAYNE (test code = Phenotype Characteristics: DEWAYNE) [...] the Factor 5 Leiden mutation is c.1601G>A (p.Mgf303Ugq). Methodology: Polymerase chain reaction and fluorescence monitoring. Limitations: Rare Factor V mutations (S0874U, S4843E, and F3623B) and any additional SNPs in the probe binding region may interfere with the target detection and yield an INVALID result. The performance of this assay has not been evaluated with samples from pediatric patients. Counseling and informed consent are recommended for genetic testing. References: OMIM: 989454 https://ghr.nlm.nih.gov/co ndition/ckqste-f-ewcifn-[facility] METABOLIC PANEL (NA, K, CL, CO2, GLUCOSE, BUN, CREATININE, CA)2022-05-28 09:52:42 Test Item Value Reference Range Interpretation Comments NA (test code = 137 mmol/L 135-145 1092478920) K (test code = 3.8 mmol/L 3.5-5.0 2820388640) CL (test code = 103 mmol/L 98-108 6658847415) CO2 TOTAL (test code = 27 mmol/L 23-31 9370176856) AGAP (test code = 7 2-16 7723488834) BUN (test code = 27 mg/dL 7-23 H 0298826223) GLUCOSE (test code = 105 mg/dL 70-110 7016466065) CREATININE (test code = 0.84 mg/dL 0.60-1.25 1128828920) CALCIUM (test code = 8.5 mg/dL 8.6-10.6 L 0379353065) eGFR (test code = 93.5 mL/min/1.73m2 2177041302) DEWAYNE (test code = DEWAYNE) Association of [...] tests). Lab Interpretation Abnormal (test code = 07547-5) [facility] METABOLIC PANEL (NA, K, CL, CO2, GLUCOSE, BUN, CREATININE, CA)2022-05-28 09:52:42 Test Item Value Reference Range Interpretation Comments NA (test code = 137 mmol/L 135-145 1983426395) K (test code = 3.8 mmol/L 3.5-5.0 2256897603) CL (test code = 103 mmol/L 98-108 8691774044) CO2 TOTAL (test code = 27 mmol/L 23-31 9363251397) AGAP (test code = 7 2-16 0846845144) BUN (test code = 27 mg/dL 7-23 H 0136755029) GLUCOSE (test code = 105 mg/dL 70-110 5173539782) CREATININE (test code = 0.84 mg/dL 0.60-1.25 5928981615) CALCIUM (test code = 8.5 mg/dL 8.6-10.6 L 7704648396) eGFR (test code = 93.5 mL/min/1.73m2 0288696015) DEWAYNE (test code = DEWAYNE) Association of [...] tests). Lab Interpretation Abnormal (test code = 82704-9) [facility] (NA, K, CL, CO2, GLUCOSE, BUN, CREATININE, CA)2022-05-28 09:52:42 Test Item Value Reference Range Interpretation Comments NA (test code = 137 mmol/L 135-145 9529449269) K (test code = 3.8 mmol/L 3.5-5.0 0766591503) CL (test code = 103 mmol/L 98-108 5749527828) CO2 TOTAL (test code = 27 mmol/L 23-31 2930015159) AGAP (test code = 7 2-16 3093323059) BUN (test code = 27 mg/dL 7-23 H 4683803683) GLUCOSE (test code = 105 mg/dL 70-110 5382123393) CREATININE (test code = 0.84 mg/dL 0.60-1.25 7350360500) CALCIUM (test code = 8.5 mg/dL 8.6-10.6 L 1458941839) eGFR (test code = 93.5 mL/min/1.73m2 6724617747) DEWAYNE (test code = DEWAYNE) Association of [...] tests). Lab Interpretation Abnormal (test code = 12424-5) [facility] METABOLIC PANEL (NA, K, CL, CO2, GLUCOSE, BUN, CREATININE, CA)2022-05-28 09:52:42 Test Item Value Reference Range Interpretation Comments NA (test code = 137 mmol/L 135-145 7900409531) K (test code = 3.8 mmol/L 3.5-5.0 7368971720) CL (test code = 103 mmol/L 98-108 9021961258) CO2 TOTAL (test code = 27 mmol/L 23-31 2172072561) AGAP (test code = 7 2-16 5210389329) BUN (test code = 27 mg/dL 7-23 H 5525428041) GLUCOSE (test code = 105 mg/dL 70-110 7867224562) CREATININE (test code = 0.84 mg/dL 0.60-1.25 9078085988) CALCIUM (test code = 8.5 mg/dL 8.6-10.6 L 9473873084) eGFR (test code = 93.5 mL/min/1.73m2 9956607346) DEWAYNE (test code = DEWAYNE) Association of [...] tests). Lab Interpretation Abnormal (test code = 46424-1) [facility] WITH [id number] 09:29:20 Test Item Value Reference Range Interpretation Comments WBC (test code = 8.34 See_Comment [Automated 9258-2) message] The sy stem which generated this result transmitted reference range : 4.20 - 10.70 10*3/?L. The reference range was not used to interpret this result as normal/abnormal . RBC (test code = 4.08 See_Comment L [Automated 299-7) message] The sy stem which generated this [...] RDW-SD (test code = 44.7 fL 38.5-51.6 07044-5) RDW-CV (test code = 14.5 % 12.1-15.4 788-0) PLT (test code = 199 See_Comment [Automated 777-3) message] The sy stem which generated this result transmitted reference range : 150 - 328 10*3/ ?L. The reference r mitra was not used to interpret this result as normal/abnormal . MPV (test code = 9.3 fL 9.8-13.0 L 12729-0) NRBC/100 WBC (test 0.0 See_Comment [Automat ed code = 5422551876) message] The system which generated this result transmitted reference range : 0.0 - 10.0 /100 WBCs. The refer ence range was not u sed to interpret th is result as normal/abnormal . NRBC x10^3 (test code See_Comment [Auto mated = 9412432860) message] The s ystem which generated this result transmitted reference range : 10*3/?L. The reference range was not used to interpret this result as normal/abnormal . GRAN MAT (NEUT) % 56.1 % (test code = 770-8) IMM GRAN % (test code 1.20 % = 4372752292) LYMPH % (test code = 30.8 % 736-9) MONO % (test code = 7.6 % 5905-5) EOS % (test code = 3.7 % 713-8) BASO % (test code = 0.6 % 706-2) GRAN MAT x10^3(ANC) 4.68 10*3/uL 1.99-6.95 (test code = 2277507677) IMM GRAN x10^3 (test 0.10 10*3/uL 0.00-0.06 H code = 9017575670) LYMPH x10^3 (test code 2.57 10*3/uL 1.09-3.23 = 731-0) MONO x10^3 (test code 0.63 10*3/uL 0.36-1.02 = 742-7) EOS x10^3 (test code = 0.31 10*3/uL 0.06-0.53 711-2) BASO x10^3 (test code 0.05 10*3/uL 0.01-0.09 = 704-7) Lab Interpretation Abnormal (test code = 60037-1) [facility] WITH [id number] 09:29:20 Test Item Value Reference Range Interpretation Comments WBC (test code = 8.34 See_Comment [Automated 9270-2) message] The sy stem which generated this result transmitted reference range : 4.20 - 10.70 10*3/?L. The reference range was not used to interpret this result as normal/abnormal . RBC (test code = 4.08 See_Comment L [Automated 729-8) message] The sy [...] RDW-SD (test code = 44.7 fL 38.5-51.6 88343-9) RDW-CV (test code = 14.5 % 12.1-15.4 788-0) PLT (test code = 199 See_Comment [Automated 957-3) message] The sy stem which generated this result transmitted reference range : 150 - 328 10*3/ ?L. The reference r mitra was not used to interpret this result as normal/abnormal . MPV (test code = 9.3 fL 9.8-13.0 L 90741-5) NRBC/100 WBC (test 0.0 See_Comment [Automat ed code = [id number]) message] The system which generated this result transmitted reference range : 0.0 - 10.0 /100 WBCs. The refer ence range was not u sed to interpret th is result as normal/abnormal . NRBC x10^3 (test code See_Comment [Auto mated = 5130911645) message] The s ystem which generated this result transmitted reference range : 10*3/?L. The reference range was not used to interpret this result as normal/abnormal . GRAN MAT (NEUT) % 56.1 % (test code = 770-8) IMM GRAN % (test code 1.20 % = 2928070191) LYMPH % (test code = 30.8 % 736-9) MONO % (test code = 7.6 % 5905-5) EOS % (test code = 3.7 % 713-8) BASO % (test code = 0.6 % 706-2) GRAN MAT x10^3(ANC) 4.68 10*3/uL 1.99-6.95 (test code = 5124591456) IMM GRAN x10^3 (test 0.10 10*3/uL 0.00-0.06 H code = 9478706258) LYMPH x10^3 (test code 2.57 10*3/uL 1.09-3.23 = 731-0) MONO x10^3 (test code 0.63 10*3/uL 0.36-1.02 = 742-7) EOS x10^3 (test code = 0.31 10*3/uL 0.06-0.53 711-2) BASO x10^3 (test code 0.05 10*3/uL 0.01-0.09 = 704-7) Lab Interpretation Abnormal (test code = 02692-7) [facility] WITH [id number] 09:29:20 Test Item Value Reference Range Interpretation [...] RDW-SD (test code = 44.7 fL 38.5-51.6 16624-9) RDW-CV (test code = 14.5 % 12.1-15.4 788-0) PLT (test code = 199 See_Comment [Automated 777-3) message] The sy stem which generated this result transmitted reference range : 150 - 328 10*3/ ?L. The reference r mitra was not used to interpret this result as normal/abnormal . MPV (test code = 9.3 fL 9.8-13.0 L 52456-1) NRBC/100 WBC (test 0.0 See_Comment [Automat ed code = 0760179144) message] The system which generated this result transmitted reference range : 0.0 - 10.0 /100 WBCs. The refer ence range was not u sed to interpret th is result as normal/abnormal . NRBC x10^3 (test code See_Comment [Auto mated = 0769794105) message] The s ystem which generated this result transmitted reference range : 10*3/?L. The reference range was not used to interpret this result as normal/abnormal . GRAN MAT (NEUT) % 56.1 % (test code = 770-8) IMM GRAN % (test code 1.20 % = 8105386116) LYMPH % (test code = 30.8 % 736-9) MONO % (test code = 7.6 % 5905-5) EOS % (test code = 3.7 % 713-8) BASO % (test code = 0.6 % 706-2) GRAN MAT x10^3(ANC) 4.68 10*3/uL 1.99-6.95 (test code = 4002464514) IMM GRAN x10^3 (test 0.10 10*3/uL 0.00-0.06 H code = 8090597444) LYMPH x10^3 (test code 2.57 10*3/uL 1.09-3.23 = 731-0) MONO x10^3 (test code 0.63 10*3/uL 0.36-1.02 = 742-7) EOS x10^3 (test code = 0.31 10*3/uL 0.06-0.53 711-2) BASO x10^3 (test code 0.05 10*3/uL 0.01-0.09 = 704-7) Lab Interpretation Abnormal (test code = 10671-6) [facility] WITH [id number] 09:29:20 Test Item Value Reference Range Interpretation Comments WBC (test code = 8.34 See_Comment [Automated 6690-2) message] The sy stem which generated this result transmitted reference range : 4.20 - 10.70 10*3/?L. The reference range was not used to interpret this result as normal/abnormal . RBC (test code = 4.08 See_Comment L [Automated 339-8) message] The sy stem which generated this [...] RDW-SD (test code = 44.7 fL 38.5-51.6 26437-6) RDW-CV (test code = 14.5 % 12.1-15.4 788-0) PLT (test code = 199 See_Comment [Automated 777-3) message] The sy stem which generated this result transmitted reference range : 150 - 328 10*3/ ?L. The reference r mitra was not used to interpret this result as normal/abnormal . MPV (test code = 9.3 fL 9.8-13.0 L 55564-6) NRBC/100 WBC (test 0.0 See_Comment [Automat ed code = 2744471168) message] The system which generated this result transmitted reference range : 0.0 - 10.0 /100 WBCs. The refer ence range was not u sed to interpret th is result as normal/abnormal . NRBC x10^3 (test code See_Comment [Auto mated = 0210120718) message] The s ystem which generated this result transmitted reference range : 10*3/?L. The reference range was not used to interpret this result as normal/abnormal . GRAN MAT (NEUT) % 56.1 % (test code = 770-8) IMM GRAN % (test code 1.20 % = 2271491216) LYMPH % (test code = 30.8 % 736-9) MONO % (test code = 7.6 % 5905-5) EOS % (test code = 3.7 % 713-8) BASO % (test code = 0.6 % 706-2) GRAN MAT x10^3(ANC) 4.68 10*3/uL 1.99-6.95 (test code = 0704280190) IMM GRAN x10^3 (test 0.10 10*3/uL 0.00-0.06 H code = 0800179303) LYMPH x10^3 (test code 2.57 10*3/uL 1.09-3.23 = 731-0) MONO x10^3 (test code 0.63 10*3/uL 0.36-1.02 = 742-7) EOS x10^3 (test code = 0.31 10*3/uL 0.06-0.53 711-2) BASO x10^3 (test code 0.05 10*3/uL 0.01-0.09 = 704-7) Lab Interpretation Abnormal (test code = 27302-6) [facility]et[facility]acet[facility] (Keppra), [id number] 04:20:00 Test Item Value Reference Interpretation Comments Range Levetiracetam 4.1 ug/mL 10.0-40.0 A This test was developed and ([facility]), S (test its perfor fritz code = KEPPRA.L) characteris ticsdetermined by [employer]. It has not been cleared orappro mannie by the Food and Drug Administration. Performed at: [facility] [id number] [place], [place] [id number] Di shahid: Miriam Sevilla MD, Ph one: [phone] Drug Screen,Xenle3973-04-25 20:40:00 Test Item Value Reference Range Interpretation [...] Negative Negative code = UPROP) Comprehensive Metabolic Grhpm5305-43-60 19:50:00 Test Item Value Reference Range Interpretation [...] 47 U/L 46-116 N = ALP) Troponin [id number] 19:50:00 Test Item Value Reference Range Interpretation [...] 99th percentile in serialmeasureme nts. Prothrombin Time [id number] 19:50:00 Test Item Value Reference Range Interpretation Comments Prothrombin Time (test code = 10.9 Seconds 9.8-13.4 N PT) INR (test code = INR) 1.0 ratio 0.6-1.2 N Partial Thromboplastin Dwbm9983-93-84 19:50:00 Test Item Value Reference Range Interpretation Comments Partial Thromboplastin Time 20.00 Seconds 24.39-37.25 L (test code = PTT) Complete Blood Count Auto Djfy5659-84-75 19:50:00 Test Item Value Reference Range Interpretation [...] code = NRBCP) 0 % B-Type Natriuretic Uygjbif3460-37-46 19:50:00 Test Item Value Reference Range Interpretation Comments B-Type Natriuretic Peptide (test 30.2 pg/mL 0.0-99.9 N code = BNP) SARS-CoV-2 (COVID-19) RNA [Presence] in Respiratory specimen by COOPER with probe mjgvpjwhm4683-59-01 03:31:41 Test Item Value Reference Range Interpretation Comments SARS-CoV-2 (COVID-19) RNA Not detected Not-Detected [Presence] in Respiratory specimen by COOPER with probe detection (test code = 19666-2) [facility] Metabolic Eomng4682-00-48 20:19:00 Test Item Value Reference Range Interpretation [...] ://nkd [email or web address].gov CT HEAD OR BRAIN WO DSZRSHYF0239-92-26 18:19:40Location code: R 15HISTORY: Intracranial hemorrhageCOMPARISON: None.TECHNIQUE: [...] Unremarkable nonenhanced CT scan of the brain.Ammonia, Tojrt1892-46-65 12:35:00 Test Item Value Reference Range Interpretation Comments Ammonia (test code = NH3) 25.0 umol/L 11.0-35.0 N US DUPLX EXT VEINS COMPRS, [id number] 15:35:40ULTRASOUND: Bilateral lower extremity venous duplex sonography.History: [...] An IVC filter is in place.Impression:Unremarkable exam.Glycosylated Htjkdaqexf0193-10-11 10:36:00 Test Item Value Reference Range Interpretation Comments HBA1c (test code = HBA1C) 5.1 % 4.8-5.9 N RPR, Daiw2551-90-20 12:10:00 Test Item Value Reference Range Interpretation Comments RPR (test code = RPR) Non-Reactive Non-Reactive N Thyroid Stimulating Hormone (TSH)2016-12-24 06:02:00 Test Item Value Reference Range Interpretation Comments TSH (test code = TSH) 1.03 mIU/mL 0.270-4.200 N Lipid Bnjsafd0105-12-79 05:53:00 Test Item Value Reference Range Interpretation Comments Cholesterol (test 205 mg/dL 0-200 H code = CHOL) Triglycerides (test 69 mg/dL 9-200 N code = TRIG) HDL (test code = 68 mg/dL 40-60 H HDL) Chol/HDL (test code 3.0 Ratio 0.0-5.0 N = CHOLPHDL) LDL, Calculated 123 0-130 N (NOTE)RISK O F HEART (test code = LDLC) DISEASEPu blished by Vietnamese Heart AssociationAnal yte Optimal Boderli ne Increased RiskC HOL <200 200-239 >240TRI G <150 150-199 >200HDL Male: >60 <40HDL Fema le: >60 <50LDL <100 130 -159 >160LDL NEAR OP TIMAL IS 100-129 VLDL (test code = 14 mg/dL 5-40 N VLDL) LDL/HDL (test code = 2 LDLPHDL) Comprehensive Metabolic Ooekk3026-33-93 18:42:00 Test Item Value Reference Range Interpretation [...] National Kid[employer] Foundation,http :[email or web address] [email or web address] CBC with Ldtoninnwjru6329-81-53 17:59:00 Test Item Value Reference Range Interpretation [...] code = ALYMPH) 1.4 K/cumm 0.5-4.6 N Potter Abs (test code = AMONO) 0.9 K/cumm 0.0-1.2 N Eos Abs (test code = AEOS) 0.01 K/cumm 0.00-0.74 N Baso Abs (test code = ABASO) 0.0 K/cumm 0.00-0.21 N GINEGKBJWCUW9928-25-92 18:46:00 Test Item Value Reference Range Interpretation Comments B/C Ratio (test code = B/C Ratio) 18 6-25 [facility]jix[facility]woPGJJYGDRVSXV0626-22-87 18:46:00 Test Item Value Reference Range Interpretation Comments A/G Ratio (test code = A/G Ratio) 1.1 0.7-1.6 [facility] HospitalSspbusgFGVRYGCZXJIZ9570-07-14 18:46:00 Test Item Value Reference Range Interpretation Comments Globulin (test code = Globulin) 3.3 2.0-4.0 [facility] HospitalOxxigpwDUMWTEUTCIJS3634-08-16 18:46:00 Test Item Value Reference Range Interpretation Comments eGFR (test code = eGFR) 99 [facility] HospitalYqnghwsOUMRNWQHCZMI8825-76-42 18:46:00 Test Item Value Reference Range Interpretation Comments Calcium Lvl (test code = Calcium Lvl) 9.0 8.5-10.5 [facility] HospitalQzbbavkNXRTKEJGSJTW0803-07-63 18:46:00 Test Item Value Reference Range Interpretation Comments Chloride Lvl (test code = Chloride Lvl) 106 95-109 [facility] HospitalQzfdfnuSANNZYVTBJPJ4249-69-20 18:46:00 Test Item Value Reference Range Interpretation Comments Creatinine Lvl (test code = Creatinine 0.9 0.5-1.4 Lvl) [facility] HospitalBccbixlLOUTDHPMORCG1175-01-09 18:46:00 Test Item Value Reference Range Interpretation Comments Potassium Lvl (test code = Potassium 4.2 3.5-5.1 Lvl) [facility] HospitalXhbvdzfSIBLIQMZJXNH0457-02-81 18:46:00 Test Item Value Reference Range Interpretation Comments Sodium Lvl (test code = Sodium Lvl) 139 135-145 [facility] HospitalWqrhyqrCKSMHGIJMNWT7375-48-36 18:46:00 Test Item Value Reference Range Interpretation Comments CO2 (test code = CO2) 24 24-32 [facility] HospitalSxfuzufZZYGSFNTNYRN0899-26-30 18:46:00 Test Item Value Reference Range Interpretation Comments BUN (test code = BUN) 16 7-22 [facility] HospitalLbsmrfsIJTMBNVEOUDJ2847-79-55 18:46:00 Test Item Value Reference Range Interpretation Comments Glucose Lvl (test code = Glucose Lvl) 141 70-99 [facility] HospitalYggabtbULESCTTMRLJK5301-79-73 18:46:00 Test Item Value Reference Range Interpretation Comments Albumin Lvl (test code = Albumin Lvl) 3.6 3.5-5.0 [facility] HospitalRgoqrdeKYYFHDEAHUMR4789-64-19 18:46:00 Test Item Value Reference Range Interpretation Comments Alk Phos (test code = Alk Phos) 65 39-136 [facility] HospitalQujennrQYIODUIOJRFP8062-90-13 18:46:00 Test Item Value Reference Range Interpretation Comments Bili Total (test code = Bili Total) 0.3 0.2-1.3 [facility] HospitalJztiklnVAQJQHHGOCID3722-04-00 18:46:00 Test Item Value Reference Range Interpretation Comments ALT (test code = ALT) 100 See_Comment [Auto mated message] The system which ge nerated this result transmit elizabeth reference range : <=65. The reference range was not used to interpr et this result as margaret l/abnormal. [facility] HospitalIemnmzbBQBVMNCSOIMQ0191-12-02 18:46:00 Test Item Value Reference Range Interpretation Comments AST (test code = AST) 53 See_Comment [Auto mated message] The system which ge nerated this result transmit elizabeth reference range : <=37. The reference range was not used to interpr et this result as margaret l/abnormal. [facility] HospitalIzriwqzVJOZXDGOPWSL7453-24-67 18:46:00 Test Item Value Reference Range Interpretation Comments Total Protein (test code = Total 6.9 6.4-8.4 Protein) [facility]landsThitwsnZGMHESGFRV4555-27-16 18:46:00 Test Item Value Reference Range Interpretation Comments Eosinophils (test code = 4.2 See_Comment [A utomated message] The Eosinophils) system which ge nerated this result tra nsmitted reference range : <=4.0. The reference r mitra was not used to int erpret this result as normal/abnormal . [facility] DallasYunzdngOLWRFFRVMX5106-57-94 18:46:00 Test Item Value Reference Range Interpretation Comments Segs (test code = Segs) 56.4 45.0-75.0 [facility] DallasGmtmsnmJEVKTOQZRK5828-80-81 18:46:00 Test Item Value Reference Range Interpretation Comments Monocytes (test code = Monocytes) 10.3 2.0-12.0 [facility] DallasWsoujsuWZBDOQCPRF4116-25-45 18:46:00 Test Item Value Reference Range Interpretation Comments Lymphocytes (test code = Lymphocytes) 28.0 20.0-40.0 [facility] DallasKawpypgJBZWRPWCXB7375-16-17 18:46:00 Test Item Value Reference Range Interpretation Comments Monocytes # (test code 0.5 See_Comment [Aut omated message] The = Monocytes #) system which generated this result tra nsmitted reference range : <=0.8. The reference r mitra was not used to int erpret this result as normal/abnormal . [facility] DallasXhkqblzNZDEGWHRVJ0192-09-99 18:46:00 Test Item Value Reference Range Interpretation Comments Basophils (test code = 1.1 See_Comment [Aut omated message] The Basophils) system which ge nerated this result tra nsmitted reference range : <=1.0. The reference r mitra was not used to int erpret this result as normal/abnormal . [facility] DallasKkgrbmdSWXNFUHDJV1347-11-17 18:46:00 Test Item Value Reference Range Interpretation Comments Lymphocytes # (test code = Lymphocytes 1.5 1.0-5.5 #) [facility] DallasPvxmmaqKBGSAVNAVE8869-48-16 18:46:00 Test Item Value Reference Range Interpretation Comments Segs-Bands # (test code = Segs-Bands #) 2.9 1.5-8.1 [facility] DallasLudyhfeNVRJQLYDWI2123-10-15 18:46:00 Test Item Value Reference Range Interpretation Comments Eosinophils # (test code 0.2 See_Comment [A utomated message] The = Eosinophils #) system whic h generated this result tra nsmitted reference range : <=0.5. The reference r mitra was not used to int erpret this result as normal/abnormal . [facility] DallasRjdpqnfQNQSMKYCQA9758-21-45 18:46:00 Test Item Value Reference Range Interpretation Comments Basophils # (test code 0.1 See_Comment [Aut omated message] The = Basophils #) system which generated this result tra nsmitted reference range : <=0.2. The reference r mitra was not used to int erpret this result as normal/abnormal . [facility] DallasKgrfkuqSZLSOUGRNS6303-56-89 18:46:00 Test Item Value Reference Range Interpretation Comments PT (test code = PT) 11.2 s 12.0-14.7 [facility] DallasLzpnpkgXEEOLQOBZA6284-40-45 18:46:00 Test Item Value Reference Range Interpretation Comments INR (test code = INR) 0.82 0.85-1.17 [facility] DallasXrhzofeNYMATOZCXR2247-84-79 18:46:00 Test Item Value Reference Range Interpretation Comments PTT (test code = PTT) 28.6 s 22.9-35.8 [facility] DallasNpxhilaYPFZCEMRMH4501-99-20 18:46:00 Test Item Value Reference Range Interpretation Comments MPV (test code = MPV) 8.1 7.4-10.4 [facility] DallasKqtihnmFUGIOAYFTO7389-02-76 18:46:00 Test Item Value Reference Range Interpretation Comments Platelet (test code = Platelet) 301 133-450 [facility] DallasNktgghzQQIUWBRSZV8518-25-64 18:46:00 Test Item Value Reference Range Interpretation Comments RDW (test code = RDW) 14.5 11.5-14.5 [facility] DallasRkihmioRXPEOVDSAO5878-37-42 18:46:00 Test Item Value Reference Range Interpretation Comments RBC (test code = RBC) 4.84 4.70-6.10 [facility] DallasKhiyoneGOEPJFNOZO6644-02-39 18:46:00 Test Item Value Reference Range Interpretation Comments Hgb (test code = Hgb) 14.4 14.0-18.0 [facility] DallasRyquvfaKTMQYZVGAE8175-26-91 18:46:00 Test Item Value Reference Range Interpretation Comments WBC (test code = WBC) 5.2 3.7-10.4 [facility] DallasDypmumkBYIJOMQVFI5196-24-44 18:46:00 Test Item Value Reference Range Interpretation Comments MCH (test code = MCH) 29.8 pg 27.0-31.0 [facility] DallasMbtkocmDPQEZVXKOG3525-52-04 18:46:00 Test Item Value Reference Range Interpretation Comments MCV (test code = MCV) 92.0 80.0-94.0 [facility] BqknrmuXRMXCRUUXH3982-59-58 18:46:00 Test Item Value Reference Range Interpretation Comments Hct (test code = Hct) 44.5 42.0-54.0 [facility] YsqabaqVTCSZZIFQF1807-37-41 18:46:00 Test Item Value Reference Range Interpretation Comments MCHC (test code = MCHC) 32.4 32.0-36.0 [facility] LvxcojnSGBPOBSIOJ5391-96-22 18:46:00 Test Item Value Reference Range Interpretation Comments [place]-Hep C Ab (test Negative *NA*(07/22/14 code = [place]-Hep C 1:46 PM) Ab) [facility] AND ROALY4803-14-29 18:46:00 Test Item Value Reference Range Interpretation Comments UA Urobilinogen (test code = UA <=1.0 mg/dL 0.1-1.0 Urobilinogen) [facility] FQRWD6950-43-65 18:46:00 Test Item Value Reference Range Interpretation Comments UA Sq Epi (test code = UA Sq Epi) None Seen [facility] AND [id number] 18:46:00 Test Item Value Reference Range Interpretation Comments UA Leuk Est (test Negative (07/22/14 1:46 code = UA Leuk Est) PM) [facility] AND UKDSD8841-37-25 18:46:00 Test Item Value Reference Range Interpretation Comments UA Nitrite (test code Negative (07/22/14 1:46 = UA Nitrite) PM) [facility] [id number] 18:46:00 Test Item Value Reference Range Interpretation Comments UA Blood (test code = Negative (07/22/14 1:46 UA Blood) PM) [facility] [id number] 18:46:00 Test Item Value Reference Range Interpretation Comments UA Ketones (test code = UA Negative mg/dL Ketones) [facility] QEFFX2539-94-69 18:46:00 Test Item Value Reference Range Interpretation Comments UA Bili (test code = Negative *NA*(07/22/14 UA Bili) 1:46 PM) [facility] JTHLW0662-66-49 18:46:00 Test Item Value Reference Range Interpretation Comments UA Bacteria (test code = UA Occasional /HPF Bacteria) [facility] AND RDUWH7537-35-03 18:46:00 Test Item Value Reference Range Interpretation Comments UA RBC (test code = no gt See_Comment [Automa elizabeth message] The UA RBC) system which ge nerated this result transmit elizabeth reference range : <=2. The reference range was not used to interpr et this result as margaret l/abnormal. [facility] CSPKA0848-07-52 18:46:00 Test Item Value Reference Range Interpretation Comments UA WBC (test code = 1 See_Comment [Automa elizabeth message] The UA WBC) system which ge nerated this result transmit elizabeth reference range : <=5. The reference range was not used to interpr et this result as margaret l/abnormal. [facility] AND [id number] 18:46:00 Test Item Value Reference Range Interpretation Comments UA Glucose (test code = UA Glucose) 30 mg/dL [facility] AND JTTDS5138-88-01 18:46:00 Test Item Value Reference Range Interpretation Comments UA Protein (test code = UA Negative mg/dL Protein) [facility] AND IPLRZ0555-74-93 18:46:00 Test Item Value Reference Range Interpretation Comments UA pH (test code = UA pH) 6.5 5.0-8.0 [facility] AND EXPWV4898-95-22 18:46:00 Test Item Value Reference Range Interpretation Comments UA Turbidity (test code = Clear (07/22/14 1:46 UA Turbidity) PM) [facility] AND [id number] 18:46:00 Test Item Value Reference Range Interpretation Comments UA Spec Grav (test code = UA Spec Grav) 1.010 [facility] AND ZOSPX4483-25-92 18:46:00 Test Item Value Reference Range Interpretation Comments UA Color (test code = Light Yellow UA Color) *NA*(07/22/14 1:46 PM) [facility]ann[facility] NNWGC6082-72-31 18:46:00 Test Item Value Reference Range Interpretation Comments Magnesium Lvl (test code = Magnesium 1.8 1.8-2.4 Lvl) [facility] HospitalXflilrsNNZWAQLVJQXG2571-61-35 18:46:00 Test Item Value Reference Range Interpretation Comments AGAP (test code = AGAP) 13.2 10.0-20.0 [facility] HospitalElqgscxIUUAJMDNYQTF4932-92-36 18:46:00 Test Item Value Reference Range Interpretation Comments B/C Ratio (test code = B/C Ratio) 18 6-25 [facility] HospitalMrnvgxyEPNAJAZPRVVI8909-07-60 18:46:00 Test Item Value Reference Range Interpretation Comments A/G Ratio (test code = A/G Ratio) 1.1 0.7-1.6 [facility] HospitalUydislkZHMPBKBNYUSO8494-94-15 18:46:00 Test Item Value Reference Range Interpretation Comments Globulin (test code = Globulin) 3.3 2.0-4.0 [facility] HospitalDgtgtsxJEDKZKZXFNOO3633-29-23 18:46:00 Test Item Value Reference Range Interpretation Comments eGFR (test code = eGFR) 99 [facility] HospitalQpmgqvnFTCFJXVCXLHM4134-16-84 18:46:00 Test Item Value Reference Range Interpretation Comments Calcium Lvl (test code = Calcium Lvl) 9.0 8.5-10.5 [facility] HospitalIalngnmFGZKXPCBIYNK6661-34-19 18:46:00 Test Item Value Reference Range Interpretation Comments Chloride Lvl (test code = Chloride Lvl) 106 95-109 [facility] HospitalJkcjwmsIVHXFAMPZCUI4714-26-00 18:46:00 Test Item Value Reference Range Interpretation Comments Creatinine Lvl (test code = Creatinine 0.9 0.5-1.4 Lvl) [facility] HospitalCavlwpdQRSONVKRMLKD0796-18-33 18:46:00 Test Item Value Reference Range Interpretation Comments Potassium Lvl (test code = Potassium 4.2 3.5-5.1 Lvl) [facility] HospitalPbiaocyXOVQQTDMCPBF0382-99-23 18:46:00 Test Item Value Reference Range Interpretation Comments Sodium Lvl (test code = Sodium Lvl) 139 135-145 [facility] HospitalZmxydkfCCYFYRNYVLNC4831-90-78 18:46:00 Test Item Value Reference Range Interpretation Comments CO2 (test code = CO2) 24 24-32 [facility] HospitalScgoxebUVTQCODFADCC9672-37-77 18:46:00 Test Item Value Reference Range Interpretation Comments BUN (test code = BUN) 16 7-22 [facility] HospitalKxcagbpVKSCCRGLFQTE9969-77-24 18:46:00 Test Item Value Reference Range Interpretation Comments Glucose Lvl (test code = Glucose Lvl) 141 70-99 [facility] HospitalVkkejatZYCJALSIVTUL8912-77-15 18:46:00 Test Item Value Reference Range Interpretation Comments Albumin Lvl (test code = Albumin Lvl) 3.6 3.5-5.0 [facility] HospitalMtveyvxISBRCOIEKELV0906-62-20 18:46:00 Test Item Value Reference Range Interpretation Comments Alk Phos (test code = Alk Phos) 65 39-136 [facility] HospitalAbuyyoyAZBGGQDFXXOF6753-45-87 18:46:00 Test Item Value Reference Range Interpretation Comments Bili Total (test code = Bili Total) 0.3 0.2-1.3 [facility] [id number] 18:46:00 Test Item Value Reference Range Interpretation Comments ALT (test code = ALT) 100 See_Comment [Auto mated message] The system which ge nerated this result transmit elizabeth reference range : <=65. The reference range was not used to interpr et this result as margaret l/abnormal. [facility]HfjcmhmLEGVILRKYMFO2134-30-24 18:46:00 Test Item Value Reference Range Interpretation Comments AST (test code = AST) 53 See_Comment [Auto mated message] The system which ge nerated this result transmit elizabeth reference range : <=37. The reference range was not used to interpr et this result as margaret l/abnormal. [facility] HospitalSfkelnhAQZMJCDIKBZH1043-15-69 18:46:00 Test Item Value Reference Range Interpretation Comments Total Protein (test code = Total 6.9 6.4-8.4 Protein) [facility] DallasCoifuehEZZRMXJJCJ6787-84-67 18:46:00 Test Item Value Reference Range Interpretation Comments Eosinophils (test code = 4.2 See_Comment [A utomated message] The Eosinophils) system which ge nerated this result tra nsmitted reference range : <=4.0. The reference r mitra was not used to int erpret this result as normal/abnormal . [facility] DallasQdqcvzcNXJTBSHZWB3055-58-78 18:46:00 Test Item Value Reference Range Interpretation Comments Segs (test code = Segs) 56.4 45.0-75.0 [facility] DallasPrqteoiKOPRVZTYSZ3207-74-69 18:46:00 Test Item Value Reference Range Interpretation Comments Monocytes (test code = Monocytes) 10.3 2.0-12.0 [facility] DallasOuyfaofRZSSDEZFDF4148-64-53 18:46:00 Test Item Value Reference Range Interpretation Comments Lymphocytes (test code = Lymphocytes) 28.0 20.0-40.0 [facility] DallasMaogdsxOOXSKJMMWW1107-22-90 18:46:00 Test Item Value Reference Range Interpretation Comments Monocytes # (test code 0.5 See_Comment [Aut omated message] The = Monocytes #) system which generated this result tra nsmitted reference range : <=0.8. The reference r mitra was not used to int erpret this result as normal/abnormal . [facility] DallasSqkfmhhPVLBRDUJEA5433-82-97 18:46:00 Test Item Value Reference Range Interpretation Comments Basophils (test code = 1.1 See_Comment [Aut omated message] The Basophils) system which ge nerated this result tra nsmitted reference range : <=1.0. The reference r mitra was not used to int erpret this result as normal/abnormal . [facility] DallasIfqtbbcEDAGGSLWRE4614-46-64 18:46:00 Test Item Value Reference Range Interpretation Comments Lymphocytes # (test code = Lymphocytes 1.5 1.0-5.5 #) [facility] DallasWrxrqwxEEGDMKPOSL8810-15-49 18:46:00 Test Item Value Reference Range Interpretation Comments Segs-Bands # (test code = Segs-Bands #) 2.9 1.5-8.1 [facility] DallasLrlnzzjNAKLPVOUMC1687-53-41 18:46:00 Test Item Value Reference Range Interpretation Comments Eosinophils # (test code 0.2 See_Comment [A utomated message] The = Eosinophils #) system whic h generated this result tra nsmitted reference range : <=0.5. The reference r mitra was not used to int erpret this result as normal/abnormal . [facility] DallasBlmibgtQZPGAAYHKV7648-20-48 18:46:00 Test Item Value Reference Range Interpretation Comments Basophils # (test code 0.1 See_Comment [Aut omated message] The = Basophils #) system which generated this result tra nsmitted reference range : <=0.2. The reference r mitra was not used to int erpret this result as normal/abnormal . [facility] DallasBxrmyltJXNBKXHOBY9504-02-72 18:46:00 Test Item Value Reference Range Interpretation Comments PT (test code = PT) 11.2 s 12.0-14.7 [facility] DallasPxvcgayQUGHHUYOAO3334-06-28 18:46:00 Test Item Value Reference Range Interpretation Comments INR (test code = INR) 0.82 0.85-1.17 [facility] DallasZfvqjhuPYLQSWRGQG2598-89-08 18:46:00 Test Item Value Reference Range Interpretation Comments PTT (test code = PTT) 28.6 s 22.9-35.8 [facility] DallasRkxrijvIMRERHGBXE9554-51-44 18:46:00 Test Item Value Reference Range Interpretation Comments MPV (test code = MPV) 8.1 7.4-10.4 [facility] DallasPaoxgbjHMVCCPUUUZ6411-17-23 18:46:00 Test Item Value Reference Range Interpretation Comments Platelet (test code = Platelet) 301 133-450 [facility] DallasEoydwosOYEZJTBWMF8028-17-14 18:46:00 Test Item Value Reference Range Interpretation Comments RDW (test code = RDW) 14.5 11.5-14.5 [facility] DallasTmzvtmlITAFWFYYMQ6080-13-64 18:46:00 Test Item Value Reference Range Interpretation Comments RBC (test code = RBC) 4.84 4.70-6.10 [facility] DallasNjizdeoBGMNKHQQUR3590-13-91 18:46:00 Test Item Value Reference Range Interpretation Comments Hgb (test code = Hgb) 14.4 14.0-18.0 [facility] DallasYjgocbzEXXVLYKSZR6794-68-40 18:46:00 Test Item Value Reference Range Interpretation Comments WBC (test code = WBC) 5.2 3.7-10.4 [facility] DallasSvljktfSYINTONLWI2862-05-82 18:46:00 Test Item Value Reference Range Interpretation Comments MCH (test code = MCH) 29.8 pg 27.0-31.0 [facility] DallasOjqrgooOCWJBMCKRD4459-85-86 18:46:00 Test Item Value Reference Range Interpretation Comments MCV (test code = MCV) 92.0 80.0-94.0 [facility] DallasMohdhbtKBYLQSHPXC8852-19-80 18:46:00 Test Item Value Reference Range Interpretation Comments Hct (test code = Hct) 44.5 42.0-54.0 [facility] DallasNmjfaroOTEFRDSFDU2937-78-40 18:46:00 Test Item Value Reference Range Interpretation Comments MCHC (test code = MCHC) 32.4 32.0-36.0 [facility]landsApjfhpxYGZGAJTYBQ4889-70-08 18:46:00 Test Item Value Reference Range Interpretation Comments [place]-Hep C Ab (test Negative *NA*(07/22/14 code = [place]-Hep C 1:46 PM) Ab) [facility] AND [id number] 18:46:00 Test Item Value Reference Range Interpretation Comments UA Urobilinogen (test code = UA <=1.0 mg/dL 0.1-1.0 Urobilinogen) [facility] AND [id number] 18:46:00 Test Item Value Reference Range Interpretation Comments UA Sq Epi (test code = UA Sq Epi) None Seen [facility] AND [id number] 18:46:00 Test Item Value Reference Range Interpretation Comments UA Leuk Est (test Negative (07/22/14 1:46 code = UA Leuk Est) PM) [facility] AND [id number] 18:46:00 Test Item Value Reference Range Interpretation Comments UA Nitrite (test code Negative (07/22/14 1:46 = UA Nitrite) PM) [facility] AND [id number] 18:46:00 Test Item Value Reference Range Interpretation Comments UA Blood (test code = Negative (07/22/14 1:46 UA Blood) PM) [facility] AND [id number] 18:46:00 Test Item Value Reference Range Interpretation Comments UA Ketones (test code = UA Negative mg/dL Ketones) [facility] AND [id number] 18:46:00 Test Item Value Reference Range Interpretation Comments UA Bili (test code = Negative *NA*(07/22/14 UA Bili) 1:46 PM) [facility] AND [id number] 18:46:00 Test Item Value Reference Range Interpretation Comments UA Bacteria (test code = UA Occasional /HPF Bacteria) [facility] AND [id number] 18:46:00 Test Item Value Reference Range Interpretation Comments UA RBC (test code = no gt See_Comment [Automa elizabeth message] The UA RBC) system which ge nerated this result transmit elizabeth reference range : <=2. The reference range was not used to interpr et this result as margaret l/abnormal. [facility] AND [id number] 18:46:00 Test Item Value Reference Range Interpretation Comments UA WBC (test code = 1 See_Comment [Automa eliazbeth message] The UA WBC) system which ge nerated this result transmit elizabeth reference range : <=5. The reference range was not used to interpr et this result as margaret l/abnormal. [facility] AND [id number] 18:46:00 Test Item Value Reference Range Interpretation Comments UA Glucose (test code = UA Glucose) 30 mg/dL [facility] AND [id number] 18:46:00 Test Item Value Reference Range Interpretation Comments UA Protein (test code = UA Negative mg/dL Protein) [facility] AND [id number] 18:46:00 Test Item Value Reference Range Interpretation Comments UA pH (test code = UA pH) 6.5 5.0-8.0 [facility] AND [id number] 18:46:00 Test Item Value Reference Range Interpretation Comments UA Turbidity (test code = Clear (07/22/14 1:46 UA Turbidity) PM) [facility] AND [id number] 18:46:00 Test Item Value Reference Range Interpretation Comments UA Spec Grav (test code = UA Spec Grav) 1.010 [facility] AND [id number] 18:46:00 Test Item Value Reference Range Interpretation Comments UA Color (test code = Light Yellow UA Color) *NA*(07/22/14 1:46 PM) [facility] [id number] 18:46:00 Test Item Value Reference Range Interpretation Comments Magnesium Lvl (test code = Magnesium 1.8 1.8-2.4 Lvl) [facility]QvfdzfiYUIDSBYDXNXM8695-61-30 18:46:00 Test Item Value Reference Range Interpretation Comments AGAP (test code = AGAP) 13.2 10.0-20.0 [facility] HospitalHafvvhfXZTFYTLGZEZQ8684-61-17 18:46:00 Test Item Value Reference Range Interpretation Comments B/C Ratio (test code = B/C Ratio) 18 6-25 [facility] HospitalGbhqgbcEUHZMSMRZSNE5713-85-74 18:46:00 Test Item Value Reference Range Interpretation Comments A/G Ratio (test code = A/G Ratio) 1.1 0.7-1.6 [facility] HospitalItgdfbgNBJEKQSTIRJS7725-20-15 18:46:00 Test Item Value Reference Range Interpretation Comments Globulin (test code = Globulin) 3.3 2.0-4.0 [facility] HospitalJxgwprtMFKBFRFEORPC7135-68-43 18:46:00 Test Item Value Reference Range Interpretation Comments eGFR (test code = eGFR) 99 [facility] HospitalUmlmjshTEDFTYOHTPRY9720-46-47 18:46:00 Test Item Value Reference Range Interpretation Comments Calcium Lvl (test code = Calcium Lvl) 9.0 8.5-10.5 [facility] HospitalYtzwawwZIWVNYFRYRBS3637-76-85 18:46:00 Test Item Value Reference Range Interpretation Comments Chloride Lvl (test code = Chloride Lvl) 106 95-109 [facility] HospitalErkrlwyYAQICJEUVXDN1408-75-45 18:46:00 Test Item Value Reference Range Interpretation Comments Creatinine Lvl (test code = Creatinine 0.9 0.5-1.4 Lvl) [facility] HospitalNxzxrnpSAPVUVNCFBKK4891-06-45 18:46:00 Test Item Value Reference Range Interpretation Comments Potassium Lvl (test code = Potassium 4.2 3.5-5.1 Lvl) [facility] HospitalHncenthBXZUYSHTAEIN3055-09-09 18:46:00 Test Item Value Reference Range Interpretation Comments Sodium Lvl (test code = Sodium Lvl) 139 135-145 [facility] HospitalHoxcytqDGMDEHGBTWCN8583-42-88 18:46:00 Test Item Value Reference Range Interpretation Comments CO2 (test code = CO2) 24 24-32 [facility] HospitalIhwximuCELRFILLRTCF7953-30-83 18:46:00 Test Item Value Reference Range Interpretation Comments BUN (test code = BUN) 16 7-22 [facility] HospitalHegzxdqDWEOQRNHGVDN6857-06-39 18:46:00 Test Item Value Reference Range Interpretation Comments Glucose Lvl (test code = Glucose Lvl) 141 70-99 [facility] HospitalTxuqbotVTRXBUBVFBDZ3296-68-04 18:46:00 Test Item Value Reference Range Interpretation Comments Albumin Lvl (test code = Albumin Lvl) 3.6 3.5-5.0 [facility] HospitalVognsngCZKVTYQTHZWN3125-67-72 18:46:00 Test Item Value Reference Range Interpretation Comments Alk Phos (test code = Alk Phos) 65 39-136 [facility] HospitalPqgrtpbGLHEDZNDYIRI0961-45-37 18:46:00 Test Item Value Reference Range Interpretation Comments Bili Total (test code = Bili Total) 0.3 0.2-1.3 [facility] HospitalDnlisvcSLMSNUPBGUZY0321-40-33 18:46:00 Test Item Value Reference Range Interpretation Comments ALT (test code = ALT) 100 See_Comment [Auto mated message] The system which ge nerated this result transmit elizabeth reference range : <=65. The reference range was not used to interpr et this result as margaret l/abnormal. [facility] HospitalVnwjrxrZXSBGDZEGBJJ7830-18-03 18:46:00 Test Item Value Reference Range Interpretation Comments AST (test code = AST) 53 See_Comment [Auto mated message] The system which ge nerated this result transmit elizabeth reference range : <=37. The reference range was not used to interpr et this result as margaret l/abnormal. [facility] HospitalUaxqvyoQGBYKZOKRIEM7671-41-41 18:46:00 Test Item Value Reference Range Interpretation Comments Total Protein (test code = Total 6.9 6.4-8.4 Protein) [facility] DallasAtbixujMQEGZCOFIW0475-35-47 18:46:00 Test Item Value Reference Range Interpretation Comments Eosinophils (test code = 4.2 See_Comment [A utomated message] The Eosinophils) system which ge nerated this result tra nsmitted reference range : <=4.0. The reference r mitra was not used to int erpret this result as normal/abnormal . [facility] DallasGifjriiNEPUDCRFBW1879-71-11 18:46:00 Test Item Value Reference Range Interpretation Comments Segs (test code = Segs) 56.4 45.0-75.0 [facility] DallasVmgvhfeAABYDDTEOV0286-71-38 18:46:00 Test Item Value Reference Range Interpretation Comments Monocytes (test code = Monocytes) 10.3 2.0-12.0 [facility] DallasJvxaxxmBRTYVIUFLZ3905-89-43 18:46:00 Test Item Value Reference Range Interpretation Comments Lymphocytes (test code = Lymphocytes) 28.0 20.0-40.0 [facility] DallasGtpqrqmEQPMLFZFMU5334-22-09 18:46:00 Test Item Value Reference Range Interpretation Comments Monocytes # (test code 0.5 See_Comment [Aut omated message] The = Monocytes #) system which generated this result tra nsmitted reference range : <=0.8. The reference r mitra was not used to int erpret this result as normal/abnormal . [facility] DallasAnjjoolWLOYJWOVND2421-12-48 18:46:00 Test Item Value Reference Range Interpretation Comments Basophils (test code = 1.1 See_Comment [Aut omated message] The Basophils) system which ge nerated this result tra nsmitted reference range : <=1.0. The reference r mitra was not used to int erpret this result as normal/abnormal . [facility] DallasFzohdwrSLKVDIAKMV2417-57-79 18:46:00 Test Item Value Reference Range Interpretation Comments Lymphocytes # (test code = Lymphocytes 1.5 1.0-5.5 #) [facility] DallasLquezykWBEQFDUBJG0267-76-57 18:46:00 Test Item Value Reference Range Interpretation Comments Segs-Bands # (test code = Segs-Bands #) 2.9 1.5-8.1 [facility] DallasMnoraduUZIKFCERKC3862-48-48 18:46:00 Test Item Value Reference Range Interpretation Comments Eosinophils # (test code 0.2 See_Comment [A utomated message] The = Eosinophils #) system whic h generated this result tra nsmitted reference range : <=0.5. The reference r mitra was not used to int erpret this result as normal/abnormal . [facility] DallasGzygdqwWNZPPCOYFH6805-13-00 18:46:00 Test Item Value Reference Range Interpretation Comments Basophils # (test code 0.1 See_Comment [Aut omated message] The = Basophils #) system which generated this result tra nsmitted reference range : <=0.2. The reference r mitra was not used to int erpret this result as normal/abnormal . [facility] DallasAvbmvwwAAZQKUKRZT2056-64-30 18:46:00 Test Item Value Reference Range Interpretation Comments PT (test code = PT) 11.2 s 12.0-14.7 [facility] DallasEyxolemTRYROSLWFC6014-09-30 18:46:00 Test Item Value Reference Range Interpretation Comments INR (test code = INR) 0.82 0.85-1.17 [facility] DallasZoqcjlbGTXGAAJESH1719-99-75 18:46:00 Test Item Value Reference Range Interpretation Comments PTT (test code = PTT) 28.6 s 22.9-35.8 [facility] DallasXktxetkJUAJKSFEKU2754-73-68 18:46:00 Test Item Value Reference Range Interpretation Comments MPV (test code = MPV) 8.1 7.4-10.4 [facility] DallasNcmufqzIXBBWFFWMJ0864-14-82 18:46:00 Test Item Value Reference Range Interpretation Comments Platelet (test code = Platelet) 301 133-450 [facility]WzhwocvYUKXLVQNBC8276-98-64 18:46:00 Test Item Value Reference Range Interpretation Comments RDW (test code = RDW) 14.5 11.5-14.5 [facility]KgkacdpOJDFVGIWVX9614-90-30 18:46:00 Test Item Value Reference Range Interpretation Comments RBC (test code = RBC) 4.84 4.70-6.10 [facility] DallasSezzfcsPVTWPCHEWB3656-16-72 18:46:00 Test Item Value Reference Range Interpretation Comments Hgb (test code = Hgb) 14.4 14.0-18.0 [facility] DallasAstqjlvUQZZGYEJPH3377-90-26 18:46:00 Test Item Value Reference Range Interpretation Comments WBC (test code = WBC) 5.2 3.7-10.4 [facility] DallasSdzglrkPICZMFJZOL0905-04-98 18:46:00 Test Item Value Reference Range Interpretation Comments MCH (test code = MCH) 29.8 pg 27.0-31.0 [facility] DallasJrsoqjaZRZCQJZPDW0514-99-98 18:46:00 Test Item Value Reference Range Interpretation Comments MCV (test code = MCV) 92.0 80.0-94.0 [facility]ChgjizuQHGIDIXWYU3507-87-06 18:46:00 Test Item Value Reference Range Interpretation Comments Hct (test code = Hct) 44.5 42.0-54.0 [facility]KwixgmiOSSBTOMOJR4954-85-91 18:46:00 Test Item Value Reference Range Interpretation Comments MCHC (test code = MCHC) 32.4 32.0-36.0 [facility]landsWlgwcxtIGQDEWBHLS9561-03-44 18:46:00 Test Item Value Reference Range Interpretation Comments [place]-Hep C Ab (test Negative *NA*(07/22/14 code = [place]-Hep C 1:46 PM) Ab) [facility] AND [id number] 18:46:00 Test Item Value Reference Range Interpretation Comments UA Urobilinogen (test code = UA <=1.0 mg/dL 0.1-1.0 Urobilinogen) [facility] AND [id number] 18:46:00 Test Item Value Reference Range Interpretation Comments UA Sq Epi (test code = UA Sq Epi) None Seen [facility] AND [id number] 18:46:00 Test Item Value Reference Range Interpretation Comments UA Leuk Est (test Negative (07/22/14 1:46 code = UA Leuk Est) PM) [facility] AND [id number] 18:46:00 Test Item Value Reference Range Interpretation Comments UA Nitrite (test code Negative (07/22/14 1:46 = UA Nitrite) PM) [facility] AND [id number] 18:46:00 Test Item Value Reference Range Interpretation Comments UA Blood (test code = Negative (07/22/14 1:46 UA Blood) PM) [facility] AND [id number] 18:46:00 Test Item Value Reference Range Interpretation Comments UA Ketones (test code = UA Negative mg/dL Ketones) [facility] AND [id number] 18:46:00 Test Item Value Reference Range Interpretation Comments UA Bili (test code = Negative *NA*(07/22/14 UA Bili) 1:46 PM) [facility] AND [id number] 18:46:00 Test Item Value Reference Range Interpretation Comments UA Bacteria (test code = UA Occasional /HPF Bacteria) [facility] AND [id number] 18:46:00 Test Item Value Reference Range Interpretation Comments UA RBC (test code = no gt See_Comment [Automa elizabeth message] The UA RBC) system which ge nerated this result transmit elizabeth reference range : <=2. The reference range was not used to interpr et this result as margaret l/abnormal. [facility] AND [id number] 18:46:00 Test Item Value Reference Range Interpretation Comments UA WBC (test code = 1 See_Comment [Automa elizabeth message] The UA WBC) system which ge nerated this result transmit elizabeth reference range : <=5. The reference range was not used to interpr et this result as margaret l/abnormal. [facility] AND [id number] 18:46:00 Test Item Value Reference Range Interpretation Comments UA Glucose (test code = UA Glucose) 30 mg/dL [facility] AND [id number] 18:46:00 Test Item Value Reference Range Interpretation Comments UA Protein (test code = UA Negative mg/dL Protein) [facility] AND [id number] 18:46:00 Test Item Value Reference Range Interpretation Comments UA pH (test code = UA pH) 6.5 5.0-8.0 [facility] AND [id number] 18:46:00 Test Item Value Reference Range Interpretation Comments UA Turbidity (test code = Clear (07/22/14 1:46 UA Turbidity) PM) [facility] AND [id number] 18:46:00 Test Item Value Reference Range Interpretation Comments UA Spec Grav (test code = UA Spec Grav) 1.010 [facility] AND [id number] 18:46:00 Test Item Value Reference Range Interpretation Comments UA Color (test code = Light Yellow UA Color) *NA*(07/22/14 1:46 PM) [facility]CHE[facility] [id number] 18:46:00 Test Item Value Reference Range Interpretation Comments Magnesium Lvl (test code = Magnesium 1.8 1.8-2.4 Lvl) [facility] HospitalBexuystARSAXHREXHRS2713-69-68 18:46:00 Test Item Value Reference Range Interpretation Comments AGAP (test code = AGAP) 13.2 10.0-20.0 [facility] HospitalFzlkqkcLHYVFKSNKOBI7104-44-31 18:46:00 Test Item Value Reference Range Interpretation Comments B/C Ratio (test code = B/C Ratio) 18 6-25 [facility] HospitalXcojsliUXKBFLXNBWZJ8524-93-77 18:46:00 Test Item Value Reference Range Interpretation Comments A/G Ratio (test code = A/G Ratio) 1.1 0.7-1.6 [facility] HospitalLwyhddkSJWHWQYKLSMM3562-76-94 18:46:00 Test Item Value Reference Range Interpretation Comments Globulin (test code = Globulin) 3.3 2.0-4.0 [facility] ArlingtonUfxnignLXINCTZZYHZK3881-81-88 18:46:00 Test Item Value Reference Range Interpretation Comments eGFR (test code = eGFR) 99 [facility] HospitalTpeujjwYVDHCJLHOTAK2934-06-20 18:46:00 Test Item Value Reference Range Interpretation Comments Calcium Lvl (test code = Calcium Lvl) 9.0 8.5-10.5 [facility] HospitalUponqpzQZHGHOALDSZT5257-23-94 18:46:00 Test Item Value Reference Range Interpretation Comments Chloride Lvl (test code = Chloride Lvl) 106 95-109 [facility] HospitalEowigioVIWCRWDVJYEB3023-34-24 18:46:00 Test Item Value Reference Range Interpretation Comments Creatinine Lvl (test code = Creatinine 0.9 0.5-1.4 Lvl) [facility] HospitalZdegamzONJZPPSDAIFW0377-94-84 18:46:00 Test Item Value Reference Range Interpretation Comments Potassium Lvl (test code = Potassium 4.2 3.5-5.1 Lvl) [facility] HospitalVtyiytmNSHGDUOJKGKD0059-59-45 18:46:00 Test Item Value Reference Range Interpretation Comments Sodium Lvl (test code = Sodium Lvl) 139 135-145 [facility] HospitalFgzvhepYXOHEQIIQUHK6405-84-28 18:46:00 Test Item Value Reference Range Interpretation Comments CO2 (test code = CO2) 24 24-32 [facility] HospitalVrilzrxKUQNCIWGEWIU9053-73-33 18:46:00 Test Item Value Reference Range Interpretation Comments BUN (test code = BUN) 16 7-22 [facility] HospitalVlakkgsDOOENNGTWMZV5901-19-48 18:46:00 Test Item Value Reference Range Interpretation Comments Glucose Lvl (test code = Glucose Lvl) 141 70-99 [facility] HospitalAjxapciKLJFEPEMILVT9917-37-59 18:46:00 Test Item Value Reference Range Interpretation Comments Albumin Lvl (test code = Albumin Lvl) 3.6 3.5-5.0 [facility] HospitalGcdxhjbIIWMYWWYMEBQ5033-33-50 18:46:00 Test Item Value Reference Range Interpretation Comments Alk Phos (test code = Alk Phos) 65 39-136 [facility] HospitalKirostxEJKZPUIOXNMF2223-12-44 18:46:00 Test Item Value Reference Range Interpretation Comments Bili Total (test code = Bili Total) 0.3 0.2-1.3 [facility] HospitalQgnpammWQRWRCUBNSBX3286-20-28 18:46:00 Test Item Value Reference Range Interpretation Comments ALT (test code = ALT) 100 See_Comment [Auto mated message] The system which ge nerated this result transmit elizabeth reference range : <=65. The reference range was not used to interpr et this result as margaret l/abnormal. [facility] HospitalDhqshsgEFBPISBHNILX1012-70-47 18:46:00 Test Item Value Reference Range Interpretation Comments AST (test code = AST) 53 See_Comment [Auto mated message] The system which ge nerated this result transmit elizabeth reference range : <=37. The reference range was not used to interpr et this result as margaret l/abnormal. [place] [id number] 18:46:00 Test Item Value Reference Range Interpretation Comments Total Protein (test code = Total 6.9 6.4-8.4 Protein) [facility]EkvdxqbPBMANYBQKV4820-11-15 18:46:00 Test Item Value Reference Range Interpretation Comments Eosinophils (test code = 4.2 See_Comment [A utomated message] The Eosinophils) system which ge nerated this result tra nsmitted reference range : <=4.0. The reference r mitra was not used to int erpret this result as normal/abnormal . [facility] DallasRuhquwxTSEDJNCATA1915-41-80 18:46:00 Test Item Value Reference Range Interpretation Comments Segs (test code = Segs) 56.4 45.0-75.0 [facility] DallasTvtlfusGNNCAQNSKQ6363-99-96 18:46:00 Test Item Value Reference Range Interpretation Comments Monocytes (test code = Monocytes) 10.3 2.0-12.0 [facility] DallasChhkhyrUOERSSYTWW3578-22-47 18:46:00 Test Item Value Reference Range Interpretation Comments Lymphocytes (test code = Lymphocytes) 28.0 20.0-40.0 [facility] DallasVnrtttaMIKWUDYIJN6850-18-93 18:46:00 Test Item Value Reference Range Interpretation Comments Monocytes # (test code 0.5 See_Comment [Aut omated message] The = Monocytes #) system which generated this result tra nsmitted reference range : <=0.8. The reference r mitra was not used to int erpret this result as normal/abnormal . [facility] DallasZhhbjbaTEGSBIWOJM8220-97-28 18:46:00 Test Item Value Reference Range Interpretation Comments Basophils (test code = 1.1 See_Comment [Aut omated message] The Basophils) system which ge nerated this result tra nsmitted reference range : <=1.0. The reference r mitra was not used to int erpret this result as normal/abnormal . [facility] DallasExwqdatVOXWRQFFQU7327-33-65 18:46:00 Test Item Value Reference Range Interpretation Comments Lymphocytes # (test code = Lymphocytes 1.5 1.0-5.5 #) [facility] DallasZpxyiuqXKYKJOEYWA7598-99-04 18:46:00 Test Item Value Reference Range Interpretation Comments Segs-Bands # (test code = Segs-Bands #) 2.9 1.5-8.1 [facility] DallasJigjxvdEBTZBAZDSZ6195-38-64 18:46:00 Test Item Value Reference Range Interpretation Comments Eosinophils # (test code 0.2 See_Comment [A utomated message] The = Eosinophils #) system whic h generated this result tra nsmitted reference range : <=0.5. The reference r mitra was not used to int erpret this result as normal/abnormal . [facility] DallasTkaaykiJLONDDASYC5331-73-97 18:46:00 Test Item Value Reference Range Interpretation Comments Basophils # (test code 0.1 See_Comment [Aut omated message] The = Basophils #) system which generated this result tra nsmitted reference range : <=0.2. The reference r mitra was not used to int erpret this result as normal/abnormal . [facility] DallasMzpaaviJWTJNWCYRF8594-08-55 18:46:00 Test Item Value Reference Range Interpretation Comments PT (test code = PT) 11.2 s 12.0-14.7 [facility] DallasCgotbcoPYCZTPTBGA4226-46-11 18:46:00 Test Item Value Reference Range Interpretation Comments INR (test code = INR) 0.82 0.85-1.17 [facility] DallasFqxtwmdZKNSZHNFJQ2259-97-30 18:46:00 Test Item Value Reference Range Interpretation Comments PTT (test code = PTT) 28.6 s 22.9-35.8 [facility] DallasGucbwsoLJLGDWBCRF5378-74-69 18:46:00 Test Item Value Reference Range Interpretation Comments MPV (test code = MPV) 8.1 7.4-10.4 [facility] DallasJwotadtUJSLSHLKEP8132-03-17 18:46:00 Test Item Value Reference Range Interpretation Comments Platelet (test code = Platelet) 301 133-450 [facility] DallasZzkzisgSFDRSFZMXI7923-00-31 18:46:00 Test Item Value Reference Range Interpretation Comments RDW (test code = RDW) 14.5 11.5-14.5 [facility] DallasOspdkqtHKSOKWETTD6181-93-76 18:46:00 Test Item Value Reference Range Interpretation Comments RBC (test code = RBC) 4.84 4.70-6.10 [facility] DallasNcxxkyiPMMFZVLBPA8458-25-35 18:46:00 Test Item Value Reference Range Interpretation Comments Hgb (test code = Hgb) 14.4 14.0-18.0 [facility] DallasYqalwwqGGCCEILJHM5694-35-34 18:46:00 Test Item Value Reference Range Interpretation Comments WBC (test code = WBC) 5.2 3.7-10.4 [facility]JmknxdvASDKLTYGJG0743-88-36 18:46:00 Test Item Value Reference Range Interpretation Comments MCH (test code = MCH) 29.8 pg 27.0-31.0 [facility]wdVFFOYTXCQF6327-62-48 18:46:00 Test Item Value Reference Range Interpretation Comments MCV (test code = MCV) 92.0 80.0-94.0 [facility] HospitalPksiasuFBSKAOHPGI6135-36-63 18:46:00 Test Item Value Reference Range Interpretation Comments Hct (test code = Hct) 44.5 42.0-54.0 [facility]landsTzwwednMEEAUAXHEX5011-05-12 18:46:00 Test Item Value Reference Range Interpretation Comments MCHC (test code = MCHC) 32.4 32.0-36.0 [facility]landsNozlvqsQSMQHTUJDU9686-38-69 18:46:00 Test Item Value Reference Range Interpretation Comments [place]-Hep C Ab (test Negative *NA*(07/22/14 code = [place]-Hep C 1:46 PM) Ab) [facility] AND [id number] 18:46:00 Test Item Value Reference Range Interpretation Comments UA Urobilinogen (test code = UA <=1.0 mg/dL 0.1-1.0 Urobilinogen) [facility] AND [id number] 18:46:00 Test Item Value Reference Range Interpretation Comments UA Sq Epi (test code = UA Sq Epi) None Seen [facility] AND [id number] 18:46:00 Test Item Value Reference Range Interpretation Comments UA Leuk Est (test Negative (07/22/14 1:46 code = UA Leuk Est) PM) [facility] AND [id number] 18:46:00 Test Item Value Reference Range Interpretation Comments UA Nitrite (test code Negative (07/22/14 1:46 = UA Nitrite) PM) [facility] AND [id number] 18:46:00 Test Item Value Reference Range Interpretation Comments UA Blood (test code = Negative (07/22/14 1:46 UA Blood) PM) [facility] AND [id number] 18:46:00 Test Item Value Reference Range Interpretation Comments UA Ketones (test code = UA Negative mg/dL Ketones) [facility] AND [id number] 18:46:00 Test Item Value Reference Range Interpretation Comments UA Bili (test code = Negative *NA*(07/22/14 UA Bili) 1:46 PM) [facility] AND [id number] 18:46:00 Test Item Value Reference Range Interpretation Comments UA Bacteria (test code = UA Occasional /HPF Bacteria) [facility] AND [id number] 18:46:00 Test Item Value Reference Range Interpretation Comments UA RBC (test code = no gt See_Comment [Automa elizabeth message] The UA RBC) system which ge nerated this result transmit elizabeth reference range : <=2. The reference range was not used to interpr et this result as margaret l/abnormal. [facility] AND [id number] 18:46:00 Test Item Value Reference Range Interpretation Comments UA WBC (test code = 1 See_Comment [Automa elizabeth message] The UA WBC) system which ge nerated this result transmit elizabeth reference range : <=5. The reference range was not used to interpr et this result as margaret l/abnormal. [facility] AND [id number] 18:46:00 Test Item Value Reference Range Interpretation Comments UA Glucose (test code = UA Glucose) 30 mg/dL [facility] AND [id number] 18:46:00 Test Item Value Reference Range Interpretation Comments UA Protein (test code = UA Negative mg/dL Protein) [facility] AND [id number] 18:46:00 Test Item Value Reference Range Interpretation Comments UA pH (test code = UA pH) 6.5 5.0-8.0 [facility] AND [id number] 18:46:00 Test Item Value Reference Range Interpretation Comments UA Turbidity (test code = Clear (07/22/14 1:46 UA Turbidity) PM) [facility] AND [id number] 18:46:00 Test Item Value Reference Range Interpretation Comments UA Spec Grav (test code = UA Spec Grav) 1.010 [facility] AND [id number] 18:46:00 Test Item Value Reference Range Interpretation Comments UA Color (test code = Light Yellow UA Color) *NA*(07/22/14 1:46 PM) [facility]2015-06-09 18:46:00 Test Item Value Reference Range Interpretation Comments Magnesium Lvl (test code = Magnesium 1.8 1.8-2.4 Lvl) [facility]DxuvhzzFGBGXMPZWHXS7037-43-53 18:46:00 Test Item Value Reference Range Interpretation Comments AGAP (test code = AGAP) 13.2 10.0-20.0 [facility] HospitalHrffqkwEVMJUJLZUPCH7946-37-80 18:46:00 Test Item Value Reference Range Interpretation Comments B/C Ratio (test code = B/C Ratio) 18 6-25 [facility] HospitalSfxpjheUCHUTENWWBCQ6943-51-84 18:46:00 Test Item Value Reference Range Interpretation Comments A/G Ratio (test code = A/G Ratio) 1.1 0.7-1.6 [facility] HospitalPmooqfmALXTHDGRYWTU6821-62-55 18:46:00 Test Item Value Reference Range Interpretation Comments Globulin (test code = Globulin) 3.3 2.0-4.0 [facility] HospitalSlwviqhVUOMMRPNTURM5695-92-69 18:46:00 Test Item Value Reference Range Interpretation Comments eGFR (test code = eGFR) 99 [facility] HospitalJnjpughRCMRRXDZFTXK0554-39-41 18:46:00 Test Item Value Reference Range Interpretation Comments Calcium Lvl (test code = Calcium Lvl) 9.0 8.5-10.5 [facility] HospitalZrxtfljBJCOFJUAMFFY9956-07-22 18:46:00 Test Item Value Reference Range Interpretation Comments Chloride Lvl (test code = Chloride Lvl) 106 95-109 [facility] HospitalMqklixiQDGQRRTOXWXW2571-18-88 18:46:00 Test Item Value Reference Range Interpretation Comments Creatinine Lvl (test code = Creatinine 0.9 0.5-1.4 Lvl) [facility] HospitalDmfekmoHJUJTOAAVQZN6300-77-69 18:46:00 Test Item Value Reference Range Interpretation Comments Potassium Lvl (test code = Potassium 4.2 3.5-5.1 Lvl) [facility] HospitalVpnyhrtDMYMISUZGYAR5263-27-91 18:46:00 Test Item Value Reference Range Interpretation Comments Sodium Lvl (test code = Sodium Lvl) 139 135-145 [facility] HospitalJedwwxcHRHTVYIZEEQU5265-44-92 18:46:00 Test Item Value Reference Range Interpretation Comments CO2 (test code = CO2) 24 24-32 [facility] HospitalGcianbkZETYXUOLKOWO6868-58-59 18:46:00 Test Item Value Reference Range Interpretation Comments BUN (test code = BUN) 16 7-22 [facility] HospitalKjezjrjTAIRTBDRIJRN8308-90-20 18:46:00 Test Item Value Reference Range Interpretation Comments Glucose Lvl (test code = Glucose Lvl) 141 70-99 [facility] HospitalTkiqidqYEGOWPPDVNCB9982-49-82 18:46:00 Test Item Value Reference Range Interpretation Comments Albumin Lvl (test code = Albumin Lvl) 3.6 3.5-5.0 [facility] HospitalGbhohpwYYSGFGQMOMWV3661-99-88 18:46:00 Test Item Value Reference Range Interpretation Comments Alk Phos (test code = Alk Phos) 65 39-136 [facility] HospitalTzpwuqzWKKJDGREYIKC5905-30-68 18:46:00 Test Item Value Reference Range Interpretation Comments Bili Total (test code = Bili Total) 0.3 0.2-1.3 [facility] HospitalXpelinfPZJKJTYIGOBE1707-31-69 18:46:00 Test Item Value Reference Range Interpretation Comments ALT (test code = ALT) 100 See_Comment [Auto mated message] The system which ge nerated this result transmit elizabeth reference range : <=65. The reference range was not used to interpr et this result as margaret l/abnormal. [facility] HospitalIfqkfliIODQZOHUNSFS0290-22-59 18:46:00 Test Item Value Reference Range Interpretation Comments AST (test code = AST) 53 See_Comment [Auto mated message] The system which ge nerated this result transmit elizabeth reference range : <=37. The reference range was not used to interpr et this result as margaret l/abnormal. [facility] HospitalJtbrredUHDYXXMEIBEW6213-12-19 18:46:00 Test Item Value Reference Range Interpretation Comments Total Protein (test code = Total 6.9 6.4-8.4 Protein) [facility] DallasMysnyxaKSJHMTCOOW9193-96-43 18:46:00 Test Item Value Reference Range Interpretation Comments Eosinophils (test code = 4.2 See_Comment [A utomated message] The Eosinophils) system which ge nerated this result tra nsmitted reference range : <=4.0. The reference r mitra was not used to int erpret this result as normal/abnormal . [facility] DallasPoggzutGOWYETFPOG9849-35-30 18:46:00 Test Item Value Reference Range Interpretation Comments Segs (test code = Segs) 56.4 45.0-75.0 [facility] DallasDyrzyfpHKGHSVKHXB8184-32-63 18:46:00 Test Item Value Reference Range Interpretation Comments Monocytes (test code = Monocytes) 10.3 2.0-12.0 [facility] DallasKryoxacQYIDQHGMXU4081-50-08 18:46:00 Test Item Value Reference Range Interpretation Comments Lymphocytes (test code = Lymphocytes) 28.0 20.0-40.0 [facility] DallasSnsgersPNNQAHJSXF1018-44-21 18:46:00 Test Item Value Reference Range Interpretation Comments Monocytes # (test code 0.5 See_Comment [Aut omated message] The = Monocytes #) system which generated this result tra nsmitted reference range : <=0.8. The reference r mitra was not used to int erpret this result as normal/abnormal . [facility] DallasSgjljlbPQMFVSLSKG4582-55-66 18:46:00 Test Item Value Reference Range Interpretation Comments Basophils (test code = 1.1 See_Comment [Aut omated message] The Basophils) system which ge nerated this result tra nsmitted reference range : <=1.0. The reference r mitra was not used to int erpret this result as normal/abnormal . [facility] DallasDpylhzcBWBPFWSXKA4815-43-37 18:46:00 Test Item Value Reference Range Interpretation Comments Lymphocytes # (test code = Lymphocytes 1.5 1.0-5.5 #) [facility] DallasBzghbbqHWBPNGKYBJ8301-16-63 18:46:00 Test Item Value Reference Range Interpretation Comments Segs-Bands # (test code = Segs-Bands #) 2.9 1.5-8.1 [facility] DallasUttpkqaSIRBLDFOXH6207-52-80 18:46:00 Test Item Value Reference Range Interpretation Comments Eosinophils # (test code 0.2 See_Comment [A utomated message] The = Eosinophils #) system ic h generated this result tra nsmitted reference range : <=0.5. The reference r mitra was not used to int erpret this result as normal/abnormal . [facility] DallasBmurzltSTDKVOEIZL7684-48-95 18:46:00 Test Item Value Reference Range Interpretation Comments Basophils # (test code 0.1 See_Comment [Aut omated message] The = Basophils #) system which generated this result tra nsmitted reference range : <=0.2. The reference r mitra was not used to int erpret this result as normal/abnormal . [facility] DallasCcltghiMDMDCZTVRS0969-27-56 18:46:00 Test Item Value Reference Range Interpretation Comments PT (test code = PT) 11.2 s 12.0-14.7 [place] 409035-06-09 18:46:00 Test Item Value Reference Range Interpretation Comments INR (test code = INR) 0.82 0.85-1.17 [facility] DallasSrfoevrCWRZAIRTOT1963-97-64 18:46:00 Test Item Value Reference Range Interpretation Comments PTT (test code = PTT) 28.6 s 22.9-35.8 [facility] DallasNoieempYOGJOJFSYY0035-45-47 18:46:00 Test Item Value Reference Range Interpretation Comments MPV (test code = MPV) 8.1 7.4-10.4 [place] 409035-06-09 18:46:00 Test Item Value Reference Range Interpretation Comments Platelet (test code = Platelet) 301 133-450 [facility] DallasKercrwaDZFDGGVEES2305-02-21 18:46:00 Test Item Value Reference Range Interpretation Comments RDW (test code = RDW) 14.5 11.5-14.5 [facility] DallasMsucjezWJQIYLDBDG3596-85-26 18:46:00 Test Item Value Reference Range Interpretation Comments RBC (test code = RBC) 4.84 4.70-6.10 [facility] DallasRxlljogKLXWPTQHSV3749-36-08 18:46:00 Test Item Value Reference Range Interpretation Comments Hgb (test code = Hgb) 14.4 14.0-18.0 [place] 409035-06-09 18:46:00 Test Item Value Reference Range Interpretation Comments WBC (test code = WBC) 5.2 3.7-10.4 [facility] DallasXjluhinAPHUAUFSLW0688-34-11 18:46:00 Test Item Value Reference Range Interpretation Comments MCH (test code = MCH) 29.8 pg 27.0-31.0 [facility] DallasStwdimhELXLNTCFFE3019-63-60 18:46:00 Test Item Value Reference Range Interpretation Comments MCV (test code = MCV) 92.0 80.0-94.0 [place] 409035-06-09 18:46:00 Test Item Value Reference Range Interpretation Comments Hct (test code = Hct) 44.5 42.0-54.0 [facility]landsYefktsrAHLFWORMYP4083-32-62 18:46:00 Test Item Value Reference Range Interpretation Comments MCHC (test code = MCHC) 32.4 32.0-36.0 [facility]PihfckmNKIXXHKFSW3307-78-61 18:46:00 Test Item Value Reference Range Interpretation Comments [place]-Hep C Ab (test Negative *NA*(07/22/14 code = [place]-Hep C 1:46 PM) Ab) [facility] AND [id number] 18:46:00 Test Item Value Reference Range Interpretation Comments UA Urobilinogen (test code = UA <=1.0 mg/dL 0.1-1.0 Urobilinogen) [facility] AND [id number] 18:46:00 Test Item Value Reference Range Interpretation Comments UA Sq Epi (test code = UA Sq Epi) None Seen [facility] AND [id number] 18:46:00 Test Item Value Reference Range Interpretation Comments UA Leuk Est (test Negative (07/22/14 1:46 code = UA Leuk Est) PM) [facility] AND [id number] 18:46:00 Test Item Value Reference Range Interpretation Comments UA Nitrite (test code Negative (07/22/14 1:46 = UA Nitrite) PM) [facility] AND [id number] 18:46:00 Test Item Value Reference Range Interpretation Comments UA Blood (test code = Negative (07/22/14 1:46 UA Blood) PM) [facility] AND [id number] 18:46:00 Test Item Value Reference Range Interpretation Comments UA Ketones (test code = UA Negative mg/dL Ketones) [facility] AND [id number] 18:46:00 Test Item Value Reference Range Interpretation Comments UA Bili (test code = Negative *NA*(07/22/14 UA Bili) 1:46 PM) [facility] AND [id number] 18:46:00 Test Item Value Reference Range Interpretation Comments UA Bacteria (test code = UA Occasional /HPF Bacteria) [facility] AND [id number] 18:46:00 Test Item Value Reference Range Interpretation Comments UA RBC (test code = no gt See_Comment [Automa elizabeth message] The UA RBC) system which ge nerated this result transmit elizabeth reference range : <=2. The reference range was not used to interpr et this result as margaret l/abnormal. [facility] AND [id number] 18:46:00 Test Item Value Reference Range Interpretation Comments UA WBC (test code = 1 See_Comment [Automa elizabeth message] The UA WBC) system which ge nerated this result transmit elizabeth reference range : <=5. The reference range was not used to interpr et this result as margaret l/abnormal. [facility] [id number] 18:46:00 Test Item Value Reference Range Interpretation Comments UA Glucose (test code = UA Glucose) 30 mg/dL [facility] [id number] 18:46:00 Test Item Value Reference Range Interpretation Comments UA Protein (test code = UA Negative mg/dL Protein) [facility] AND [id number] 18:46:00 Test Item Value Reference Range Interpretation Comments UA pH (test code = UA pH) 6.5 5.0-8.0 [facility] [id number] 18:46:00 Test Item Value Reference Range Interpretation Comments UA Turbidity (test code = Clear (07/22/14 1:46 UA Turbidity) PM) [facility] AND [id number] 18:46:00 Test Item Value Reference Range Interpretation Comments UA Spec Grav (test code = UA Spec Grav) 1.010 [facility] AND [id number] 18:46:00 Test Item Value Reference Range Interpretation Comments UA Color (test code = Light Yellow UA Color) *NA*(07/22/14 1:46 PM) [facility]annCHEM [id number] 18:46:00 Test Item Value Reference Range Interpretation Comments Magnesium Lvl (test code = Magnesium 1.8 1.8-2.4 Lvl) [facility] HospitalIiihnqwWPEXIJTZTRHG6573-45-15 18:46:00 Test Item Value Reference Range Interpretation Comments AGAP (test code = AGAP) 13.2 10.0-20.0 [facility] HospitalCbepifyGDNCIHBITGRM6842-30-79 18:46:00 Test Item Value Reference Range Interpretation Comments B/C Ratio (test code = B/C Ratio) 18 6-25 [facility] ArlingtonXkywwroQUVQEYAWOZMF4007-85-24 18:46:00 Test Item Value Reference Range Interpretation Comments A/G Ratio (test code = A/G Ratio) 1.1 0.7-1.6 [facility] HospitalYwqxcyxZSIYOOLJYFSW5783-73-74 18:46:00 Test Item Value Reference Range Interpretation Comments Globulin (test code = Globulin) 3.3 2.0-4.0 [facility] HospitalFxskeliCFKSZYETNNBM7774-72-31 18:46:00 Test Item Value Reference Range Interpretation Comments eGFR (test code = eGFR) 99 [facility] HospitalOietawyVBNKNYPPQQIE5968-26-88 18:46:00 Test Item Value Reference Range Interpretation Comments Calcium Lvl (test code = Calcium Lvl) 9.0 8.5-10.5 [facility] HospitalBueibkqVYWLVAXCYVTR5260-46-94 18:46:00 Test Item Value Reference Range Interpretation Comments Chloride Lvl (test code = Chloride Lvl) 106 95-109 [facility] HospitalIearehqPNOJNSHELBVS1168-18-42 18:46:00 Test Item Value Reference Range Interpretation Comments Creatinine Lvl (test code = Creatinine 0.9 0.5-1.4 Lvl) [facility] HospitalDhbegzuVTHPIYDPNXMN4040-80-70 18:46:00 Test Item Value Reference Range Interpretation Comments Potassium Lvl (test code = Potassium 4.2 3.5-5.1 Lvl) [facility] HospitalJivywshBTQKAULGGFXR5298-05-95 18:46:00 Test Item Value Reference Range Interpretation Comments Sodium Lvl (test code = Sodium Lvl) 139 135-145 [facility] HospitalByupogkFJQVKYYTANHZ1770-32-26 18:46:00 Test Item Value Reference Range Interpretation Comments CO2 (test code = CO2) 24 24-32 [facility] HospitalWsxwpudSXBWPQVHRMMT0395-95-73 18:46:00 Test Item Value Reference Range Interpretation Comments BUN (test code = BUN) 16 7-22 [facility] HospitalRhlykxnXUNLTKGPTYIH8245-90-03 18:46:00 Test Item Value Reference Range Interpretation Comments Glucose Lvl (test code = Glucose Lvl) 141 70-99 [facility] HospitalAlumwltVWOOJDXHENXW2942-91-69 18:46:00 Test Item Value Reference Range Interpretation Comments Albumin Lvl (test code = Albumin Lvl) 3.6 3.5-5.0 [facility] HospitalPzueqjhCLMBAKHLIGWU0810-15-57 18:46:00 Test Item Value Reference Range Interpretation Comments Alk Phos (test code = Alk Phos) 65 39-136 [facility] HospitalQiagbyiLXKKQJLEWRGQ7182-74-33 18:46:00 Test Item Value Reference Range Interpretation Comments Bili Total (test code = Bili Total) 0.3 0.2-1.3 [facility] HospitalMudddtpMLXAQWENSJZY6711-56-50 18:46:00 Test Item Value Reference Range Interpretation Comments ALT (test code = ALT) 100 See_Comment [Auto mated message] The system which ge nerated this result transmit elizabeth reference range : <=65. The reference range was not used to interpr et this result as margaret l/abnormal. [facility] HospitalBvaliwmERWTKYAEOIKG7492-89-58 18:46:00 Test Item Value Reference Range Interpretation Comments AST (test code = AST) 53 See_Comment [Auto mated message] The system which ge nerated this result transmit elizabeth reference range : <=37. The reference range was not used to interpr et this result as margaret l/abnormal. [facility] HospitalSnrylufXVERZPOITOAW3129-38-61 18:46:00 Test Item Value Reference Range Interpretation Comments Total Protein (test code = Total 6.9 6.4-8.4 Protein) [facility] DallasEarkvrfZUYLJLDPBB8239-38-85 18:46:00 Test Item Value Reference Range Interpretation Comments Eosinophils (test code = 4.2 See_Comment [A utomated message] The Eosinophils) system which ge nerated this result tra nsmitted reference range : <=4.0. The reference r mitra was not used to int erpret this result as normal/abnormal . [facility] DallasRevmariFSUMXOCXCT6986-42-23 18:46:00 Test Item Value Reference Range Interpretation Comments Segs (test code = Segs) 56.4 45.0-75.0 [facility] DallasRguabrgXGBILBCWPY2200-84-74 18:46:00 Test Item Value Reference Range Interpretation Comments Monocytes (test code = Monocytes) 10.3 2.0-12.0 [facility]EixhmjjDPTYGUEGAC5981-21-79 18:46:00 Test Item Value Reference Range Interpretation Comments Lymphocytes (test code = Lymphocytes) 28.0 20.0-40.0 [facility] DallasWrpnfcdRWBHKUAUMO2881-64-94 18:46:00 Test Item Value Reference Range Interpretation Comments Monocytes # (test code 0.5 See_Comment [Aut omated message] The = Monocytes #) system which generated this result tra nsmitted reference range : <=0.8. The reference r mitra was not used to int erpret this result as normal/abnormal . [facility] DallasWqkqqggRJEXAQFJVU9965-13-06 18:46:00 Test Item Value Reference Range Interpretation Comments Basophils (test code = 1.1 See_Comment [Aut omated message] The Basophils) system which ge nerated this result tra nsmitted reference range : <=1.0. The reference r mitra was not used to int erpret this result as normal/abnormal . [facility] DallasScshhjmDDRIBBOSNP5084-71-20 18:46:00 Test Item Value Reference Range Interpretation Comments Lymphocytes # (test code = Lymphocytes 1.5 1.0-5.5 #) [facility] DallasEmdjxynAETBUMVAFC0283-08-08 18:46:00 Test Item Value Reference Range Interpretation Comments Segs-Bands # (test code = Segs-Bands #) 2.9 1.5-8.1 [facility] DallasSaawntxTIQEKVATKE6594-84-02 18:46:00 Test Item Value Reference Range Interpretation Comments Eosinophils # (test code 0.2 See_Comment [A utomated message] The = Eosinophils #) system whic h generated this result tra nsmitted reference range : <=0.5. The reference r mitra was not used to int erpret this result as normal/abnormal . [facility] DallasOgqflqfWQJCPDXKIH7601-87-13 18:46:00 Test Item Value Reference Range Interpretation Comments Basophils # (test code 0.1 See_Comment [Aut omated message] The = Basophils #) system which generated this result tra nsmitted reference range : <=0.2. The reference r mitra was not used to int erpret this result as normal/abnormal . [facility] DallasVdzanblBZRMRRQFVW8247-60-98 18:46:00 Test Item Value Reference Range Interpretation Comments PT (test code = PT) 11.2 s 12.0-14.7 [facility] DallasUrguloiRRPRYDKQRY4847-69-54 18:46:00 Test Item Value Reference Range Interpretation Comments INR (test code = INR) 0.82 0.85-1.17 [facility] DallasVjhxgkyWMQVIEWAGP4464-23-58 18:46:00 Test Item Value Reference Range Interpretation Comments PTT (test code = PTT) 28.6 s 22.9-35.8 [place] [id number] 18:46:00 Test Item Value Reference Range Interpretation Comments MPV (test code = MPV) 8.1 7.4-10.4 [facility]oVYQWTJZNVR3371-93-80 18:46:00 Test Item Value Reference Range Interpretation Comments Platelet (test code = Platelet) 301 133-450 [facility]OvzudpdYMXWDNLCLY0832-25-30 18:46:00 Test Item Value Reference Range Interpretation Comments RDW (test code = RDW) 14.5 11.5-14.5 [facility] HospitalKlbaofgAKEAUUGIWE4833-37-27 18:46:00 Test Item Value Reference Range Interpretation Comments RBC (test code = RBC) 4.84 4.70-6.10 [facility] HospitalLgsrmdjEJWIIESRDY4426-25-54 18:46:00 Test Item Value Reference Range Interpretation Comments Hgb (test code = Hgb) 14.4 14.0-18.0 [facility] HospitalNjguualOMJVTCQIJZ6638-50-07 18:46:00 Test Item Value Reference Range Interpretation Comments WBC (test code = WBC) 5.2 3.7-10.4 [facility] HospitalWaxkazgXJSYTQNBMN0677-86-51 18:46:00 Test Item Value Reference Range Interpretation Comments MCH (test code = MCH) 29.8 pg 27.0-31.0 [facility] HospitalQstcohiVFGJVRDNWB8846-45-03 18:46:00 Test Item Value Reference Range Interpretation Comments MCV (test code = MCV) 92.0 80.0-94.0 [facility]landsFwghnjsUZMJJXTUJF9984-91-51 18:46:00 Test Item Value Reference Range Interpretation Comments Hct (test code = Hct) 44.5 42.0-54.0 [facility]landsBdipyjbTBAZYDKTIS8174-75-56 18:46:00 Test Item Value Reference Range Interpretation Comments MCHC (test code = MCHC) 32.4 32.0-36.0 [facility]landsRoxufdoZBLKSQNSBJ2210-50-45 18:46:00 Test Item Value Reference Range Interpretation Comments [place]-Hep C Ab (test Negative *NA*(07/22/14 code = [place]-Hep C 1:46 PM) Ab) [facility] [id number] 18:46:00 Test Item Value Reference Range Interpretation Comments UA Urobilinogen (test code = UA <=1.0 mg/dL 0.1-1.0 Urobilinogen) [facility] AND [id number] 18:46:00 Test Item Value Reference Range Interpretation Comments UA Sq Epi (test code = UA Sq Epi) None Seen [facility] AND [id number] 18:46:00 Test Item Value Reference Range Interpretation Comments UA Leuk Est (test Negative (07/22/14 1:46 code = UA Leuk Est) PM) [facility] AND [id number] 18:46:00 Test Item Value Reference Range Interpretation Comments UA Nitrite (test code Negative (07/22/14 1:46 = UA Nitrite) PM) [facility] AND [id number] 18:46:00 Test Item Value Reference Range Interpretation Comments UA Blood (test code = Negative (07/22/14 1:46 UA Blood) PM) [facility] AND [id number] 18:46:00 Test Item Value Reference Range Interpretation Comments UA Ketones (test code = UA Negative mg/dL Ketones) [facility] AND [id number] 18:46:00 Test Item Value Reference Range Interpretation Comments UA Bili (test code = Negative *NA*(07/22/14 UA Bili) 1:46 PM) [facility] AND [id number] 18:46:00 Test Item Value Reference Range Interpretation Comments UA Bacteria (test code = UA Occasional /HPF Bacteria) [facility] AND [id number] 18:46:00 Test Item Value Reference Range Interpretation Comments UA RBC (test code = no gt See_Comment [Automa elizabeth message] The UA RBC) system which ge nerated this result transmit elizabeth reference range : <=2. The reference range was not used to interpr et this result as margaret l/abnormal. [facility] AND [id number] 18:46:00 Test Item Value Reference Range Interpretation Comments UA WBC (test code = 1 See_Comment [Automa elizabeth message] The UA WBC) system which ge nerated this result transmit elizabeth reference range : <=5. The reference range was not used to interpr et this result as margaret l/abnormal. [facility] AND [id number] 18:46:00 Test Item Value Reference Range Interpretation Comments UA Glucose (test code = UA Glucose) 30 mg/dL [facility] AND [id number] 18:46:00 Test Item Value Reference Range Interpretation Comments UA Protein (test code = UA Negative mg/dL Protein) [facility] AND [id number] 18:46:00 Test Item Value Reference Range Interpretation Comments UA pH (test code = UA pH) 6.5 5.0-8.0 [facility] AND [id number] 18:46:00 Test Item Value Reference Range Interpretation Comments UA Turbidity (test code = Clear (07/22/14 1:46 UA Turbidity) PM) [facility] AND [id number] 18:46:00 Test Item Value Reference Range Interpretation Comments UA Spec Grav (test code = UA Spec Grav) 1.010 [facility] AND [id number] 18:46:00 Test Item Value Reference Range Interpretation Comments UA Color (test code = Light Yellow UA Color) *NA*(07/22/14 1:46 PM) [facility] [id number] 18:46:00 Test Item Value Reference Range Interpretation Comments Magnesium Lvl (test code = Magnesium 1.8 1.8-2.4 Lvl) [facility]UxkmbinXXDSLLNJMTNH1797-11-94 18:46:00 Test Item Value Reference Range Interpretation Comments AGAP (test code = AGAP) 13.2 10.0-20.0 [facility] HospitalQhjzllxYXLFTLSFRBBS4356-04-82 18:46:00 Test Item Value Reference Range Interpretation Comments B/C Ratio (test code = B/C Ratio) 18 6-25 [facility] HospitalOnethxgPVHDKPZUKNPJ5847-60-71 18:46:00 Test Item Value Reference Range Interpretation Comments A/G Ratio (test code = A/G Ratio) 1.1 0.7-1.6 [facility] HospitalUprlvkwAQZJGKQJCOJS1971-94-74 18:46:00 Test Item Value Reference Range Interpretation Comments Globulin (test code = Globulin) 3.3 2.0-4.0 [facility] HospitalZmqlrlfMICFEUNHFPFE3601-29-11 18:46:00 Test Item Value Reference Range Interpretation Comments eGFR (test code = eGFR) 99 [facility] HospitalSjtqxauCOSJZUSYUEET6731-91-99 18:46:00 Test Item Value Reference Range Interpretation Comments Calcium Lvl (test code = Calcium Lvl) 9.0 8.5-10.5 [facility] HospitalGohopfbOHAGTIMVICAB0419-29-62 18:46:00 Test Item Value Reference Range Interpretation Comments Chloride Lvl (test code = Chloride Lvl) 106 95-109 [facility] HospitalLeknnzcJHWUZTNFKJIE6554-23-29 18:46:00 Test Item Value Reference Range Interpretation Comments Creatinine Lvl (test code = Creatinine 0.9 0.5-1.4 Lvl) [facility] HospitalXwdhzccRNBMOBAQAPNJ2638-53-01 18:46:00 Test Item Value Reference Range Interpretation Comments Potassium Lvl (test code = Potassium 4.2 3.5-5.1 Lvl) [facility] HospitalRvtthjkVLVEMLQCKUZO3037-48-86 18:46:00 Test Item Value Reference Range Interpretation Comments Sodium Lvl (test code = Sodium Lvl) 139 135-145 [facility] HospitalKuczwslJPROKSDYHUXA4240-52-86 18:46:00 Test Item Value Reference Range Interpretation Comments CO2 (test code = CO2) 24 24-32 [facility] HospitalSeoymmmIPMYOHCOWIAZ2965-04-49 18:46:00 Test Item Value Reference Range Interpretation Comments BUN (test code = BUN) 16 7-22 [facility] HospitalNzwlwldIVOXXPWVZPSX3981-81-09 18:46:00 Test Item Value Reference Range Interpretation Comments Glucose Lvl (test code = Glucose Lvl) 141 70-99 [facility] HospitalRklbipoBIYJQDHTUVWK6423-82-64 18:46:00 Test Item Value Reference Range Interpretation Comments Albumin Lvl (test code = Albumin Lvl) 3.6 3.5-5.0 [facility] HospitalGbguzgqTVVWMGUZGNCC5907-53-40 18:46:00 Test Item Value Reference Range Interpretation Comments Alk Phos (test code = Alk Phos) 65 39-136 [facility] HospitalRwiavtcVDTFOPMQCTYC1313-35-42 18:46:00 Test Item Value Reference Range Interpretation Comments Bili Total (test code = Bili Total) 0.3 0.2-1.3 [facility] HospitalJwhvhwoZKEMBDWPGQML6000-64-71 18:46:00 Test Item Value Reference Range Interpretation Comments ALT (test code = ALT) 100 See_Comment [Auto mated message] The system which ge nerated this result transmit elizabeth reference range : <=65. The reference range was not used to interpr et this result as margaret l/abnormal. [facility] HospitalUdbhrmzTJUZRIWNVYEO1430-94-07 18:46:00 Test Item Value Reference Range Interpretation Comments AST (test code = AST) 53 See_Comment [Auto mated message] The system which ge nerated this result transmit elizabeth reference range : <=37. The reference range was not used to interpr et this result as margaret l/abnormal. [facility] HospitalKprglepQGJJECMEDMIQ6213-54-31 18:46:00 Test Item Value Reference Range Interpretation Comments Total Protein (test code = Total 6.9 6.4-8.4 Protein) [facility] DallasBufwcubTDIRJEOLXY3435-48-61 18:46:00 Test Item Value Reference Range Interpretation Comments Eosinophils (test code = 4.2 See_Comment [A utomated message] The Eosinophils) system which ge nerated this result tra nsmitted reference range : <=4.0. The reference r mitra was not used to int erpret this result as normal/abnormal . [facility] DallasKtbhprzGZFEOPGOQT2230-07-68 18:46:00 Test Item Value Reference Range Interpretation Comments Segs (test code = Segs) 56.4 45.0-75.0 [facility] DallasJaaciyrEPMJOHTGAJ3830-42-09 18:46:00 Test Item Value Reference Range Interpretation Comments Monocytes (test code = Monocytes) 10.3 2.0-12.0 [facility] DallasVpwnhvmEASCOVKJMB4944-74-61 18:46:00 Test Item Value Reference Range Interpretation Comments Lymphocytes (test code = Lymphocytes) 28.0 20.0-40.0 [facility] DallasZzgceooRHBDEPYQJT6753-70-39 18:46:00 Test Item Value Reference Range Interpretation Comments Monocytes # (test code 0.5 See_Comment [Aut omated message] The = Monocytes #) system which generated this result tra nsmitted reference range : <=0.8. The reference r mitra was not used to int erpret this result as normal/abnormal . [facility] DallasFvyjohnVUHDJZXXLJ8177-78-74 18:46:00 Test Item Value Reference Range Interpretation Comments Basophils (test code = 1.1 See_Comment [Aut omated message] The Basophils) system which ge nerated this result tra nsmitted reference range : <=1.0. The reference r mitra was not used to int erpret this result as normal/abnormal . [facility] DallasCqlbxluUNHZDWOBOP5784-83-09 18:46:00 Test Item Value Reference Range Interpretation Comments Lymphocytes # (test code = Lymphocytes 1.5 1.0-5.5 #) [facility] DallasGjwwhzuIXKWRHPHPT2925-88-61 18:46:00 Test Item Value Reference Range Interpretation Comments Segs-Bands # (test code = Segs-Bands #) 2.9 1.5-8.1 [facility] DallasTztdccnACWIYSRBDB7851-32-23 18:46:00 Test Item Value Reference Range Interpretation Comments Eosinophils # (test code 0.2 See_Comment [A utomated message] The = Eosinophils #) system whic h generated this result tra nsmitted reference range : <=0.5. The reference r mitra was not used to int erpret this result as normal/abnormal . [facility] DallasPvslsgnLGHPXZUMFK7376-64-66 18:46:00 Test Item Value Reference Range Interpretation Comments Basophils # (test code 0.1 See_Comment [Aut omated message] The = Basophils #) system which generated this result tra nsmitted reference range : <=0.2. The reference r mitra was not used to int erpret this result as normal/abnormal . [facility] DallasDdtrcwjMAMYBCWPYP4376-39-48 18:46:00 Test Item Value Reference Range Interpretation Comments PT (test code = PT) 11.2 s 12.0-14.7 [facility] DallasGkxkmkeFZSARAOAFN0068-24-45 18:46:00 Test Item Value Reference Range Interpretation Comments INR (test code = INR) 0.82 0.85-1.17 [facility] DallasMyfgfbtAJZKCOCQIQ0240-80-16 18:46:00 Test Item Value Reference Range Interpretation Comments PTT (test code = PTT) 28.6 s 22.9-35.8 [facility] DallasWubywjzZBKCUTVIZQ3046-07-48 18:46:00 Test Item Value Reference Range Interpretation Comments MPV (test code = MPV) 8.1 7.4-10.4 [facility] DallasRqusktpVYZNCUPELX8373-95-41 18:46:00 Test Item Value Reference Range Interpretation Comments Platelet (test code = Platelet) 301 133-450 [facility] DallasLnksyzbSMVGVOVLXX0782-59-11 18:46:00 Test Item Value Reference Range Interpretation Comments RDW (test code = RDW) 14.5 11.5-14.5 [facility] DallasNfatgorSMACBFPFSJ8368-63-98 18:46:00 Test Item Value Reference Range Interpretation Comments RBC (test code = RBC) 4.84 4.70-6.10 [facility]landsUbdrltkWKDUNTXIVL7306-11-65 18:46:00 Test Item Value Reference Range Interpretation Comments Hgb (test code = Hgb) 14.4 14.0-18.0 [facility] FeyhlzzGJLAWOYLTX7473-65-72 18:46:00 Test Item Value Reference Range Interpretation Comments WBC (test code = WBC) 5.2 3.7-10.4 [facility]YwzvpweHWTLETASAQ6197-01-25 18:46:00 Test Item Value Reference Range Interpretation Comments MCH (test code = MCH) 29.8 pg 27.0-31.0 [facility] HospitalLbkxamhAXCULCZUWW0582-10-64 18:46:00 Test Item Value Reference Range Interpretation Comments MCV (test code = MCV) 92.0 80.0-94.0 [facility]landsJuzcaedZRUXOKYGRK1390-80-16 18:46:00 Test Item Value Reference Range Interpretation Comments Hct (test code = Hct) 44.5 42.0-54.0 [facility] HospitalVlzzawvQVNOCVPNUR6382-49-94 18:46:00 Test Item Value Reference Range Interpretation Comments MCHC (test code = MCHC) 32.4 32.0-36.0 [facility]landsJwjjkttJQFXQBXLNN8772-18-95 18:46:00 Test Item Value Reference Range Interpretation Comments [place]-Hep C Ab (test Negative *NA*(07/22/14 code = [place]-Hep C 1:46 PM) Ab) [facility] AND [id number] 18:46:00 Test Item Value Reference Range Interpretation Comments UA Urobilinogen (test code = UA <=1.0 mg/dL 0.1-1.0 Urobilinogen) [facility] AND [id number] 18:46:00 Test Item Value Reference Range Interpretation Comments UA Sq Epi (test code = UA Sq Epi) None Seen [facility] AND [id number] 18:46:00 Test Item Value Reference Range Interpretation Comments UA Leuk Est (test Negative (07/22/14 1:46 code = UA Leuk Est) PM) [facility] AND [id number] 18:46:00 Test Item Value Reference Range Interpretation Comments UA Nitrite (test code Negative (07/22/14 1:46 = UA Nitrite) PM) [facility] AND [id number] 18:46:00 Test Item Value Reference Range Interpretation Comments UA Blood (test code = Negative (07/22/14 1:46 UA Blood) PM) [facility] AND [id number] 18:46:00 Test Item Value Reference Range Interpretation Comments UA Ketones (test code = UA Negative mg/dL Ketones) [facility] AND [id number] 18:46:00 Test Item Value Reference Range Interpretation Comments UA Bili (test code = Negative *NA*(07/22/14 UA Bili) 1:46 PM) [facility] AND [id number] 18:46:00 Test Item Value Reference Range Interpretation Comments UA Bacteria (test code = UA Occasional /HPF Bacteria) [facility] AND [id number] 18:46:00 Test Item Value Reference Range Interpretation Comments UA RBC (test code = no gt See_Comment [Automa elizabeth message] The UA RBC) system which ge nerated this result transmit leizabeth reference range : <=2. The reference range was not used to interpr et this result as margaret l/abnormal. [facility] AND [id number] 18:46:00 Test Item Value Reference Range Interpretation Comments UA WBC (test code = 1 See_Comment [Automa elizabeth message] The UA WBC) system which ge nerated this result transmit elizabeth reference range : <=5. The reference range was not used to interpr et this result as margaret l/abnormal. [facility] AND [id number] 18:46:00 Test Item Value Reference Range Interpretation Comments UA Glucose (test code = UA Glucose) 30 mg/dL [facility] AND [id number] 18:46:00 Test Item Value Reference Range Interpretation Comments UA Protein (test code = UA Negative mg/dL Protein) [facility] AND [id number] 18:46:00 Test Item Value Reference Range Interpretation Comments UA pH (test code = UA pH) 6.5 5.0-8.0 [facility] AND [id number] 18:46:00 Test Item Value Reference Range Interpretation Comments UA Turbidity (test code = Clear (07/22/14 1:46 UA Turbidity) PM) [facility] AND [id number] 18:46:00 Test Item Value Reference Range Interpretation Comments UA Spec Grav (test code = UA Spec Grav) 1.010 [facility] [id number] 18:46:00 Test Item Value Reference Range Interpretation Comments UA Color (test code = Light Yellow UA Color) *NA*(07/22/14 1:46 PM) [facility] HospitalannCHEM [id number] 18:46:00 Test Item Value Reference Range Interpretation Comments Magnesium Lvl (test code = Magnesium 1.8 1.8-2.4 Lvl) [facility]ByasxktSAYUTIUEMCKY9498-99-78 18:46:00 Test Item Value Reference Range Interpretation Comments AGAP (test code = AGAP) 13.2 10.0-20.0 [facility] HospitalKmipbxvVUWGHIZEQRLZ7342-53-93 18:46:00 Test Item Value Reference Range Interpretation Comments B/C Ratio (test code = B/C Ratio) 18 6-25 [facility] HospitalJdekmciNTKJIWNAAMAE3576-74-90 18:46:00 Test Item Value Reference Range Interpretation Comments A/G Ratio (test code = A/G Ratio) 1.1 0.7-1.6 [facility] HospitalIwkorbdGTOIHEYYCBCX7489-49-90 18:46:00 Test Item Value Reference Range Interpretation Comments Globulin (test code = Globulin) 3.3 2.0-4.0 [facility] HospitalIlurpfmUXYGASLCJWZL7581-78-70 18:46:00 Test Item Value Reference Range Interpretation Comments eGFR (test code = eGFR) 99 [facility] HospitalGlyglnxUSPBKYXBGNBT8081-87-97 18:46:00 Test Item Value Reference Range Interpretation Comments Calcium Lvl (test code = Calcium Lvl) 9.0 8.5-10.5 [facility] HospitalIcxowpzVGKDMXCDJDPT8224-65-83 18:46:00 Test Item Value Reference Range Interpretation Comments Chloride Lvl (test code = Chloride Lvl) 106 95-109 [facility] HospitalVyyxlgaBMPKHSYCMLMU3748-25-01 18:46:00 Test Item Value Reference Range Interpretation Comments Creatinine Lvl (test code = Creatinine 0.9 0.5-1.4 Lvl) [facility] HospitalNsrsvveNVFLIJWFCQIF8275-57-80 18:46:00 Test Item Value Reference Range Interpretation Comments Potassium Lvl (test code = Potassium 4.2 3.5-5.1 Lvl) [facility] HospitalVmffkkgQJHFDEMRGVIS2759-99-19 18:46:00 Test Item Value Reference Range Interpretation Comments Sodium Lvl (test code = Sodium Lvl) 139 135-145 [facility] HospitalPwcbqvqOQDNORKMTOVQ7144-30-78 18:46:00 Test Item Value Reference Range Interpretation Comments CO2 (test code = CO2) 24 24-32 [facility] HospitalPuigsvxOIFVXJOIXNFQ6010-09-73 18:46:00 Test Item Value Reference Range Interpretation Comments BUN (test code = BUN) 16 7-22 [facility] HospitalLiwnebyLPDAVJRVHUSK3121-87-53 18:46:00 Test Item Value Reference Range Interpretation Comments Glucose Lvl (test code = Glucose Lvl) 141 70-99 [facility] HospitalTcztxswAZOSUYGERYAO9033-53-91 18:46:00 Test Item Value Reference Range Interpretation Comments Albumin Lvl (test code = Albumin Lvl) 3.6 3.5-5.0 [facility] HospitalSahedzkBKXTAZXGPOMI8996-96-28 18:46:00 Test Item Value Reference Range Interpretation Comments Alk Phos (test code = Alk Phos) 65 39-136 [facility] HospitalEgledvnFDVQZNIEEENR7347-41-97 18:46:00 Test Item Value Reference Range Interpretation Comments Bili Total (test code = Bili Total) 0.3 0.2-1.3 [facility] HospitalBrnxswbXIFWERNUNGYW1895-58-00 18:46:00 Test Item Value Reference Range Interpretation Comments ALT (test code = ALT) 100 See_Comment [Auto mated message] The system which ge nerated this result transmit elizabeth reference range : <=65. The reference range was not used to interpr et this result as margaret l/abnormal. [facility] HospitalJqfnrubNBJUFUGUOAHR4563-15-62 18:46:00 Test Item Value Reference Range Interpretation Comments AST (test code = AST) 53 See_Comment [Auto mated message] The system which ge nerated this result transmit elizabeth reference range : <=37. The reference range was not used to interpr et this result as margaret l/abnormal. [facility] HospitalSofhbkaKUQQASKIFZZI4205-28-89 18:46:00 Test Item Value Reference Range Interpretation Comments Total Protein (test code = Total 6.9 6.4-8.4 Protein) [facility]landsMzxghfwTGMLZSYLMP4353-40-20 18:46:00 Test Item Value Reference Range Interpretation Comments Eosinophils (test code = 4.2 See_Comment [A utomated message] The Eosinophils) system which ge nerated this result tra nsmitted reference range : <=4.0. The reference r mitra was not used to int erpret this result as normal/abnormal . [facility] DallasRgsjmwvNPTTXVWFXV8252-11-64 18:46:00 Test Item Value Reference Range Interpretation Comments Segs (test code = Segs) 56.4 45.0-75.0 [facility] DallasUwnhjwpHDDROOPNXP4487-80-06 18:46:00 Test Item Value Reference Range Interpretation Comments Monocytes (test code = Monocytes) 10.3 2.0-12.0 [facility] DallasYapnwvvNRPSXYOEXX0296-35-40 18:46:00 Test Item Value Reference Range Interpretation Comments Lymphocytes (test code = Lymphocytes) 28.0 20.0-40.0 [facility] DallasIjfarmxAARBMZPFEY0322-00-30 18:46:00 Test Item Value Reference Range Interpretation Comments Monocytes # (test code 0.5 See_Comment [Aut omated message] The = Monocytes #) system which generated this result tra nsmitted reference range : <=0.8. The reference r mitra was not used to int erpret this result as normal/abnormal . [facility] DallasMsrckxjJNRGQVKWUQ5219-07-47 18:46:00 Test Item Value Reference Range Interpretation Comments Basophils (test code = 1.1 See_Comment [Aut omated message] The Basophils) system which ge nerated this result tra nsmitted reference range : <=1.0. The reference r mitra was not used to int erpret this result as normal/abnormal . [facility]XzbnkchDRAGMEQAAZ5161-48-11 18:46:00 Test Item Value Reference Range Interpretation Comments Lymphocytes # (test code = Lymphocytes 1.5 1.0-5.5 #) [facility] DallasRzeicitXQMGCLVSZJ6603-62-54 18:46:00 Test Item Value Reference Range Interpretation Comments Segs-Bands # (test code = Segs-Bands #) 2.9 1.5-8.1 [facility] DallasHdwpvmvDLCWENJYKB8890-80-66 18:46:00 Test Item Value Reference Range Interpretation Comments Eosinophils # (test code 0.2 See_Comment [A utomated message] The = Eosinophils #) system [facility] h generated this result tra nsmitted reference range : <=0.5. The reference r mitra was not used to int erpret this result as normal/abnormal . [facility] DallasVyuzcppPWWOTVRXXK4254-75-68 18:46:00 Test Item Value Reference Range Interpretation Comments Basophils # (test code 0.1 See_Comment [Aut omated message] The = Basophils #) system which generated this result tra nsmitted reference range : <=0.2. The reference r mitra was not used to int erpret this result as normal/abnormal . [facility] DallasVgrinsbNLYWVNJODD0477-67-17 18:46:00 Test Item Value Reference Range Interpretation Comments PT (test code = PT) 11.2 s 12.0-14.7 [facility] DallasKgmgoixGXRWXSPZIK7493-54-69 18:46:00 Test Item Value Reference Range Interpretation Comments INR (test code = INR) 0.82 0.85-1.17 [facility] DallasJwreocfCBZYXLBWXW0504-73-70 18:46:00 Test Item Value Reference Range Interpretation Comments PTT (test code = PTT) 28.6 s 22.9-35.8 [facility] DallasWhfdxwfYFIVHJKVFJ7905-87-74 18:46:00 Test Item Value Reference Range Interpretation Comments MPV (test code = MPV) 8.1 7.4-10.4 [facility] DallasDtxfllpNZOWMCVJMD1091-89-51 18:46:00 Test Item Value Reference Range Interpretation Comments Platelet (test code = Platelet) 301 133-450 [facility] DallasXvmtacnVSFIUPVPHE2827-71-81 18:46:00 Test Item Value Reference Range Interpretation Comments RDW (test code = RDW) 14.5 11.5-14.5 [facility] DallasRehekxfBCVGTTUADX0012-40-48 18:46:00 Test Item Value Reference Range Interpretation Comments RBC (test code = RBC) 4.84 4.70-6.10 [facility] DallasXqiggxxUVPFYFQEIY5044-29-24 18:46:00 Test Item Value Reference Range Interpretation Comments Hgb (test code = Hgb) 14.4 14.0-18.0 [facility] DallasXxenzjeOMHJMAUURQ1050-43-68 18:46:00 Test Item Value Reference Range Interpretation Comments WBC (test code = WBC) 5.2 3.7-10.4 [facility] DallasIsalvulFULOAFMTFQ2586-79-91 18:46:00 Test Item Value Reference Range Interpretation Comments MCH (test code = MCH) 29.8 pg 27.0-31.0 [facility] DallasLdygdyvSVNXTUYOWJ1624-85-93 18:46:00 Test Item Value Reference Range Interpretation Comments MCV (test code = MCV) 92.0 80.0-94.0 [facility]LFEVMBUO2643-[facility] 18:46:00 Test Item Value Reference Range Interpretation Comments Hct (test code = Hct) 44.5 42.0-54.0 [facility]landsHebxsntBWOEJTQZXP7887-22-52 18:46:00 Test Item Value Reference Range Interpretation Comments MCHC (test code = MCHC) 32.4 32.0-36.0 [facility]landsNawbngyBSDGGRCYUU2374-39-86 18:46:00 Test Item Value Reference Range Interpretation Comments [place]-Hep C Ab (test Negative *NA*(07/22/14 code = [place]-Hep C 1:46 PM) Ab) [facility] AND [id number] 18:46:00 Test Item Value Reference Range Interpretation Comments UA Urobilinogen (test code = UA <=1.0 mg/dL 0.1-1.0 Urobilinogen) [facility] AND [id number] 18:46:00 Test Item Value Reference Range Interpretation Comments UA Sq Epi (test code = UA Sq Epi) None Seen [facility] AND [id number] 18:46:00 Test Item Value Reference Range Interpretation Comments UA Leuk Est (test Negative (07/22/14 1:46 code = UA Leuk Est) PM) [facility] AND [id number] 18:46:00 Test Item Value Reference Range Interpretation Comments UA Nitrite (test code Negative (07/22/14 1:46 = UA Nitrite) PM) [facility] AND [id number] 18:46:00 Test Item Value Reference Range Interpretation Comments UA Blood (test code = Negative (07/22/14 1:46 UA Blood) PM) [facility] AND [id number] 18:46:00 Test Item Value Reference Range Interpretation Comments UA Ketones (test code = UA Negative mg/dL Ketones) [facility] AND [id number] 18:46:00 Test Item Value Reference Range Interpretation Comments UA Bili (test code = Negative *NA*(07/22/14 UA Bili) 1:46 PM) [facility] AND [id number] 18:46:00 Test Item Value Reference Range Interpretation Comments UA Bacteria (test code = UA Occasional /HPF Bacteria) [facility] AND [id number] 18:46:00 Test Item Value Reference Range Interpretation Comments UA RBC (test code = no gt See_Comment [Automa elizabeth message] The UA RBC) system which ge nerated this result transmit elizabeth reference range : <=2. The reference range was not used to interpr et this result as margaret l/abnormal. [facility] [id number] 18:46:00 Test Item Value Reference Range Interpretation Comments UA WBC (test code = 1 See_Comment [Automa elizabeth message] The UA WBC) system which ge nerated this result transmit elizabeth reference range : <=5. The reference range was not used to interpr et this result as margaret l/abnormal. [facility] AND [id number] 18:46:00 Test Item Value Reference Range Interpretation Comments UA Glucose (test code = UA Glucose) 30 mg/dL [facility] AND [id number] 18:46:00 Test Item Value Reference Range Interpretation Comments UA Protein (test code = UA Negative mg/dL Protein) [facility] AND [id number] 18:46:00 Test Item Value Reference Range Interpretation Comments UA pH (test code = UA pH) 6.5 5.0-8.0 [facility] AND [id number] 18:46:00 Test Item Value Reference Range Interpretation Comments UA Turbidity (test code = Clear (07/22/14 1:46 UA Turbidity) PM) [facility] AND [id number] 18:46:00 Test Item Value Reference Range Interpretation Comments UA Spec Grav (test code = UA Spec Grav) 1.010 [facility] AND [id number] 18:46:00 Test Item Value Reference Range Interpretation Comments UA Color (test code = Light Yellow UA Color) *NA*(07/22/14 1:46 PM) [facility] [id number] 18:46:00 Test Item Value Reference Range Interpretation Comments Magnesium Lvl (test code = Magnesium 1.8 1.8-2.4 Lvl) [facility] GfkyswdBTZTZJEUUWOC7716-47-76 18:46:00 Test Item Value Reference Range Interpretation Comments AGAP (test code = AGAP) 13.2 10.0-20.0 [facility]UpkqxbaGPCCYWVADUTB4533-47-23 18:46:00 Test Item Value Reference Range Interpretation Comments B/C Ratio (test code = B/C Ratio) 18 6-25 [facility] HospitalNetizusYYEEJEHJMPYK8628-74-75 18:46:00 Test Item Value Reference Range Interpretation Comments A/G Ratio (test code = A/G Ratio) 1.1 0.7-1.6 [facility] HospitalRzkxyttSJYLRJGCAJKT5291-57-91 18:46:00 Test Item Value Reference Range Interpretation Comments Globulin (test code = Globulin) 3.3 2.0-4.0 [facility] HospitalTlwatufXLQAXZYRCUZS4765-68-47 18:46:00 Test Item Value Reference Range Interpretation Comments eGFR (test code = eGFR) 99 [facility] HospitalStyrzxlXLWIKISELHOQ9655-14-92 18:46:00 Test Item Value Reference Range Interpretation Comments Calcium Lvl (test code = Calcium Lvl) 9.0 8.5-10.5 [facility] HospitalFckzyfvLSFTNXOEIFAB3194-61-53 18:46:00 Test Item Value Reference Range Interpretation Comments Chloride Lvl (test code = Chloride Lvl) 106 95-109 [facility] HospitalTgzpjwmAGINCCTTRUTN6901-83-31 18:46:00 Test Item Value Reference Range Interpretation Comments Creatinine Lvl (test code = Creatinine 0.9 0.5-1.4 Lvl) [facility] HospitalJeamxshGOOLWHEYFBDF5511-43-97 18:46:00 Test Item Value Reference Range Interpretation Comments Potassium Lvl (test code = Potassium 4.2 3.5-5.1 Lvl) [facility] HospitalOyvnnwxLPKSLEIPHJLV6695-04-58 18:46:00 Test Item Value Reference Range Interpretation Comments Sodium Lvl (test code = Sodium Lvl) 139 135-145 [facility] HospitalXpvxhuvZYWMMDQULSXU1166-22-94 18:46:00 Test Item Value Reference Range Interpretation Comments CO2 (test code = CO2) 24 24-32 [facility] HospitalGqppzzeQKJPKWDZIETE9630-27-86 18:46:00 Test Item Value Reference Range Interpretation Comments BUN (test code = BUN) 16 7-22 [facility] HospitalGiamfmfQDJRPDTNWJMH7053-37-96 18:46:00 Test Item Value Reference Range Interpretation Comments Glucose Lvl (test code = Glucose Lvl) 141 70-99 [facility] HospitalFhqauiiSXSSSQKBYMDI0925-50-88 18:46:00 Test Item Value Reference Range Interpretation Comments Albumin Lvl (test code = Albumin Lvl) 3.6 3.5-5.0 [facility] HospitalIwppoicDSXVGVUPYKUZ6354-00-39 18:46:00 Test Item Value Reference Range Interpretation Comments Alk Phos (test code = Alk Phos) 65 39-136 [facility] HospitalXxrppunAGMFLIYRWSRQ6222-70-86 18:46:00 Test Item Value Reference Range Interpretation Comments Bili Total (test code = Bili Total) 0.3 0.2-1.3 [facility] HospitalDrbsocaYQROLUXDCWWB1183-42-64 18:46:00 Test Item Value Reference Range Interpretation Comments ALT (test code = ALT) 100 See_Comment [Auto mated message] The system which ge nerated this result transmit elizabeth reference range : <=65. The reference range was not used to interpr et this result as margaret l/abnormal. [facility] HospitalRoedxjuRLSEUZXHJYUY9939-93-84 18:46:00 Test Item Value Reference Range Interpretation Comments AST (test code = AST) 53 See_Comment [Auto mated message] The system which ge nerated this result transmit elizabeth reference range : <=37. The reference range was not used to interpr et this result as margaret l/abnormal. [facility] HospitalZiepztwALKGECSQADNH9495-96-05 18:46:00 Test Item Value Reference Range Interpretation Comments Total Protein (test code = Total 6.9 6.4-8.4 Protein) [facility] DallasTeaxazaFPMTWYIBGB0804-52-02 18:46:00 Test Item Value Reference Range Interpretation Comments Eosinophils (test code = 4.2 See_Comment [A utomated message] The Eosinophils) system which ge nerated this result tra nsmitted reference range : <=4.0. The reference r mitra was not used to int erpret this result as normal/abnormal . [facility] DallasHfgrxvtINCBJHTWXF8350-40-60 18:46:00 Test Item Value Reference Range Interpretation Comments Segs (test code = Segs) 56.4 45.0-75.0 [facility] DallasLffdnucOCUAFSAEAC3638-03-84 18:46:00 Test Item Value Reference Range Interpretation Comments Monocytes (test code = Monocytes) 10.3 2.0-12.0 [facility] DallasAglwmbyCLQFLSLYBT7619-11-36 18:46:00 Test Item Value Reference Range Interpretation Comments Lymphocytes (test code = Lymphocytes) 28.0 20.0-40.0 [facility] DallasCqclcmmSIBASKWPAB4161-56-22 18:46:00 Test Item Value Reference Range Interpretation Comments Monocytes # (test code 0.5 See_Comment [Aut omated message] The = Monocytes #) system which generated this result tra nsmitted reference range : <=0.8. The reference r mitra was not used to int erpret this result as normal/abnormal . [facility] DallasHkudyjpCGQHQJZPHK5307-27-43 18:46:00 Test Item Value Reference Range Interpretation Comments Basophils (test code = 1.1 See_Comment [Aut omated message] The Basophils) system which ge nerated this result tra nsmitted reference range : <=1.0. The reference r mitra was not used to int erpret this result as normal/abnormal . [facility] DallasFlrompjQZELHMOMGZ1669-62-43 18:46:00 Test Item Value Reference Range Interpretation Comments Lymphocytes # (test code = Lymphocytes 1.5 1.0-5.5 #) [facility] DallasFphzsmkGYOBYTOCYJ9092-92-63 18:46:00 Test Item Value Reference Range Interpretation Comments Segs-Bands # (test code = Segs-Bands #) 2.9 1.5-8.1 [facility] DallasLrjghxnHVLUUBSIQO8928-81-50 18:46:00 Test Item Value Reference Range Interpretation Comments Eosinophils # (test code 0.2 See_Comment [A utomated message] The = Eosinophils #) system whic h generated this result tra nsmitted reference range : <=0.5. The reference r mitra was not used to int erpret this result as normal/abnormal . [facility] DallasPjzwulaLGXAZGFCFK9980-30-64 18:46:00 Test Item Value Reference Range Interpretation Comments Basophils # (test code 0.1 See_Comment [Aut omated message] The = Basophils #) system which generated this result tra nsmitted reference range : <=0.2. The reference r mitra was not used to int erpret this result as normal/abnormal . [facility] DallasKnaspnhEBXBLRUCNK8890-47-36 18:46:00 Test Item Value Reference Range Interpretation Comments PT (test code = PT) 11.2 s 12.0-14.7 [facility] DallasOrkagxcREAPPDOXZV1734-91-12 18:46:00 Test Item Value Reference Range Interpretation Comments INR (test code = INR) 0.82 0.85-1.17 [facility] DallasZowmaswUSZLPANENT4819-88-30 18:46:00 Test Item Value Reference Range Interpretation Comments PTT (test code = PTT) 28.6 s 22.9-35.8 [facility] DallasRdzvtdmOBVKJQFWWI2427-74-93 18:46:00 Test Item Value Reference Range Interpretation Comments MPV (test code = MPV) 8.1 7.4-10.4 [facility] DallasAucuhatUEGFPHLAWN0424-41-41 18:46:00 Test Item Value Reference Range Interpretation Comments Platelet (test code = Platelet) 301 133-450 [facility] DallasGwxdrduEPTVVOBJFX2026-97-68 18:46:00 Test Item Value Reference Range Interpretation Comments RDW (test code = RDW) 14.5 11.5-14.5 [facility] DallasCtjttilMXWMKVNWHE6593-22-87 18:46:00 Test Item Value Reference Range Interpretation Comments RBC (test code = RBC) 4.84 4.70-6.10 [facility] DallasGtgipweBWSWHQDBHD9172-55-60 18:46:00 Test Item Value Reference Range Interpretation Comments Hgb (test code = Hgb) 14.4 14.0-18.0 [facility] DallasPooxuhjRJDOUZXPID0683-24-43 18:46:00 Test Item Value Reference Range Interpretation Comments WBC (test code = WBC) 5.2 3.7-10.4 [facility] DallasKqanqwmLCCQIOKOEB8743-07-84 18:46:00 Test Item Value Reference Range Interpretation Comments MCH (test code = MCH) 29.8 pg 27.0-31.0 [facility] DallasKfxkqfoLKFPWDRHCS7881-27-92 18:46:00 Test Item Value Reference Range Interpretation Comments MCV (test code = MCV) 92.0 80.0-94.0 [facility] DallasTwwhmciPRUDYZJOJA5720-97-17 18:46:00 Test Item Value Reference Range Interpretation Comments Hct (test code = Hct) 44.5 42.0-54.0 [facility] DallasBrjblptWCPCQEYCOM8953-33-58 18:46:00 Test Item Value Reference Range Interpretation Comments MCHC (test code = MCHC) 32.4 32.0-36.0 [facility]landsYndgbydWEUMISSWFW2225-55-91 18:46:00 Test Item Value Reference Range Interpretation Comments [place]-Hep C Ab (test Negative *NA*(07/22/14 code = [place]-Hep C 1:46 PM) Ab) [facility] AND [id number] 18:46:00 Test Item Value Reference Range Interpretation Comments UA Urobilinogen (test code = UA <=1.0 mg/dL 0.1-1.0 Urobilinogen) [facility] AND [id number] 18:46:00 Test Item Value Reference Range Interpretation Comments UA Sq Epi (test code = UA Sq Epi) None Seen [facility] AND [id number] 18:46:00 Test Item Value Reference Range Interpretation Comments UA Leuk Est (test Negative (07/22/14 1:46 code = UA Leuk Est) PM) [facility] AND [id number] 18:46:00 Test Item Value Reference Range Interpretation Comments UA Nitrite (test code Negative (07/22/14 1:46 = UA Nitrite) PM) [facility] AND [id number] 18:46:00 Test Item Value Reference Range Interpretation Comments UA Blood (test code = Negative (07/22/14 1:46 UA Blood) PM) [facility] AND [id number] 18:46:00 Test Item Value Reference Range Interpretation Comments UA Ketones (test code = UA Negative mg/dL Ketones) [facility] AND [id number] 18:46:00 Test Item Value Reference Range Interpretation Comments UA Bili (test code = Negative *NA*(07/22/14 UA Bili) 1:46 PM) [facility] AND [id number] 18:46:00 Test Item Value Reference Range Interpretation Comments UA Bacteria (test code = UA Occasional /HPF Bacteria) [facility] AND [id number] 18:46:00 Test Item Value Reference Range Interpretation Comments UA RBC (test code = no gt See_Comment [Automa elizabeth message] The UA RBC) system which ge nerated this result transmit elizabeth reference range : <=2. The reference range was not used to interpr et this result as margaret l/abnormal. [facility] AND [id number] 18:46:00 Test Item Value Reference Range Interpretation Comments UA WBC (test code = 1 See_Comment [Automa elizabeth message] The UA WBC) system which ge nerated this result transmit elizabeth reference range : <=5. The reference range was not used to interpr et this result as margaret l/abnormal. [facility] AND [id number] 18:46:00 Test Item Value Reference Range Interpretation Comments UA Glucose (test code = UA Glucose) 30 mg/dL [facility] AND [id number] 18:46:00 Test Item Value Reference Range Interpretation Comments UA Protein (test code = UA Negative mg/dL Protein) [facility] AND [id number] 18:46:00 Test Item Value Reference Range Interpretation Comments UA pH (test code = UA pH) 6.5 5.0-8.0 [facility] AND [id number] 18:46:00 Test Item Value Reference Range Interpretation Comments UA Turbidity (test code = Clear (07/22/14 1:46 UA Turbidity) PM) [facility] AND [id number] 18:46:00 Test Item Value Reference Range Interpretation Comments UA Spec Grav (test code = UA Spec Grav) 1.010 [facility] AND [id number] 18:46:00 Test Item Value Reference Range Interpretation Comments UA Color (test code = Light Yellow UA Color) *NA*(07/22/14 1:46 PM) [facility] [id number] 18:46:00 Test Item Value Reference Range Interpretation Comments Magnesium Lvl (test code = Magnesium 1.8 1.8-2.4 Lvl) [facility] HospitalVjmlzrkELYQRQWOSLPX8383-73-64 18:46:00 Test Item Value Reference Range Interpretation Comments AGAP (test code = AGAP) 13.2 10.0-20.0 [facility] HospitalSpmrzbmDFCEBENHEPYA6752-38-52 18:46:00 Test Item Value Reference Range Interpretation Comments B/C Ratio (test code = B/C Ratio) 18 6-25 [facility] HospitalEzwxpcbBKMGGWJVRHWG5792-81-86 18:46:00 Test Item Value Reference Range Interpretation Comments A/G Ratio (test code = A/G Ratio) 1.1 0.7-1.6 [facility] HospitalIaiqnjrJXGYQMNUZZMF8770-10-93 18:46:00 Test Item Value Reference Range Interpretation Comments Globulin (test code = Globulin) 3.3 2.0-4.0 [facility] HospitalCdxxvsoROYMFHQXXPSH3482-19-44 18:46:00 Test Item Value Reference Range Interpretation Comments eGFR (test code = eGFR) 99 [facility] HospitalZutinmlRSRNPYPVEDRJ3439-09-64 18:46:00 Test Item Value Reference Range Interpretation Comments Calcium Lvl (test code = Calcium Lvl) 9.0 8.5-10.5 [facility] HospitalVvgbnqiWPRSXUOOFYNQ0434-30-68 18:46:00 Test Item Value Reference Range Interpretation Comments Chloride Lvl (test code = Chloride Lvl) 106 95-109 [facility] HospitalZncsdkpFWXZXEFEHSWH5509-69-26 18:46:00 Test Item Value Reference Range Interpretation Comments Creatinine Lvl (test code = Creatinine 0.9 0.5-1.4 Lvl) [facility] HospitalYfuwigyHGQVTLRKGTEZ3650-38-62 18:46:00 Test Item Value Reference Range Interpretation Comments Potassium Lvl (test code = Potassium 4.2 3.5-5.1 Lvl) [facility] HospitalRwlhtyyVRWXGXPSIVTH0203-26-31 18:46:00 Test Item Value Reference Range Interpretation Comments Sodium Lvl (test code = Sodium Lvl) 139 135-145 [facility] HospitalXieivsvQMPMNGMVLMAK9707-29-74 18:46:00 Test Item Value Reference Range Interpretation Comments CO2 (test code = CO2) 24 24-32 [facility] HospitalLluktwlYXIKBZRJBSQI9253-44-65 18:46:00 Test Item Value Reference Range Interpretation Comments BUN (test code = BUN) 16 7-22 [facility] HospitalZkrpzbpFQORBNOFIAQZ5037-38-26 18:46:00 Test Item Value Reference Range Interpretation Comments Glucose Lvl (test code = Glucose Lvl) 141 70-99 [facility] HospitalJpifiapNPCLYKJTHTLM5270-23-90 18:46:00 Test Item Value Reference Range Interpretation Comments Albumin Lvl (test code = Albumin Lvl) 3.6 3.5-5.0 [facility] HospitalStjvqyiIZTDWQZMVNGU3706-67-34 18:46:00 Test Item Value Reference Range Interpretation Comments Alk Phos (test code = Alk Phos) 65 39-136 [facility] HospitalZribtxjDHYTEGLKHSBC9576-37-55 18:46:00 Test Item Value Reference Range Interpretation Comments Bili Total (test code = Bili Total) 0.3 0.2-1.3 [facility] HospitalSxvadzzWCTPVJXZRFDC8092-47-98 18:46:00 Test Item Value Reference Range Interpretation Comments ALT (test code = ALT) 100 See_Comment [Auto mated message] The system which ge nerated this result transmit elizabeth reference range : <=65. The reference range was not used to interpr et this result as margaret l/abnormal. [facility] HospitalVwnkpltQPJCQEULLLFB0530-75-88 18:46:00 Test Item Value Reference Range Interpretation Comments AST (test code = AST) 53 See_Comment [Auto mated message] The system which ge nerated this result transmit elizabeth reference range : <=37. The reference range was not used to interpr et this result as margaret l/abnormal. [facility] HospitalAxmccxnSMSNSILOUMSB6623-68-19 18:46:00 Test Item Value Reference Range Interpretation Comments Total Protein (test code = Total 6.9 6.4-8.4 Protein) [facility] DallasPfcbrloTYSOFKNSKQ6721-74-09 18:46:00 Test Item Value Reference Range Interpretation Comments Eosinophils (test code = 4.2 See_Comment [A utomated message] The Eosinophils) system which ge nerated this result tra nsmitted reference range : <=4.0. The reference r mitra was not used to int erpret this result as normal/abnormal . [facility] DallasNtuqbpyRKILFSDFIE6758-98-47 18:46:00 Test Item Value Reference Range Interpretation Comments Segs (test code = Segs) 56.4 45.0-75.0 [facility] DallasJehvhfnVCHAXFDKXA8891-47-12 18:46:00 Test Item Value Reference Range Interpretation Comments Monocytes (test code = Monocytes) 10.3 2.0-12.0 [facility] DallasItvcxknOKXLTSITBR7827-46-79 18:46:00 Test Item Value Reference Range Interpretation Comments Lymphocytes (test code = Lymphocytes) 28.0 20.0-40.0 [facility] DallasYwwctffCBSKQVZPJY1912-11-94 18:46:00 Test Item Value Reference Range Interpretation Comments Monocytes # (test code 0.5 See_Comment [Aut omated message] The = Monocytes #) system which generated this result tra nsmitted reference range : <=0.8. The reference r mitra was not used to int erpret this result as normal/abnormal . [facility] DallasKotzzidNKCEZYHKHU5448-54-66 18:46:00 Test Item Value Reference Range Interpretation Comments Basophils (test code = 1.1 See_Comment [Aut omated message] The Basophils) system which ge nerated this result tra nsmitted reference range : <=1.0. The reference r mitra was not used to int erpret this result as normal/abnormal . [facility] DallasBtoguqnGHMYUNUOED8332-89-08 18:46:00 Test Item Value Reference Range Interpretation Comments Lymphocytes # (test code = Lymphocytes 1.5 1.0-5.5 #) [facility] DallasDjmkpgrGYYMDGRGJU2923-75-40 18:46:00 Test Item Value Reference Range Interpretation Comments Segs-Bands # (test code = Segs-Bands #) 2.9 1.5-8.1 [facility] DallasSngsqaoOSFSERINLD5006-79-13 18:46:00 Test Item Value Reference Range Interpretation Comments Eosinophils # (test code 0.2 See_Comment [A utomated message] The = Eosinophils #) system whic h generated this result tra nsmitted reference range : <=0.5. The reference r mitra was not used to int erpret this result as normal/abnormal . [facility]WydsrfqNLGDGKPWWY4943-16-19 18:46:00 Test Item Value Reference Range Interpretation Comments Basophils # (test code 0.1 See_Comment [Aut omated message] The = Basophils #) system which generated this result tra nsmitted reference range : <=0.2. The reference r mitra was not used to int erpret this result as normal/abnormal . [facility] DallasHbmvbchEWTWEPCBVX8437-49-17 18:46:00 Test Item Value Reference Range Interpretation Comments PT (test code = PT) 11.2 s 12.0-14.7 [facility] DallasNadmgrmEHFEWXTEYM9053-68-62 18:46:00 Test Item Value Reference Range Interpretation Comments INR (test code = INR) 0.82 0.85-1.17 [facility] DallasHxszhagWNJOJUVLKN9768-48-50 18:46:00 Test Item Value Reference Range Interpretation Comments PTT (test code = PTT) 28.6 s 22.9-35.8 [facility] DallasJsvshqzCRGOXCGTST4351-04-20 18:46:00 Test Item Value Reference Range Interpretation Comments MPV (test code = MPV) 8.1 7.4-10.4 [facility] DallasEuoscuiWYFNRILKPI9043-88-45 18:46:00 Test Item Value Reference Range Interpretation Comments Platelet (test code = Platelet) 301 133-450 [facility]dtcLJJJRRUHJJ3532-68-03 18:46:00 Test Item Value Reference Range Interpretation Comments RDW (test code = RDW) 14.5 11.5-14.5 [facility]BsesvbcARDXFGKTNN2717-69-23 18:46:00 Test Item Value Reference Range Interpretation Comments RBC (test code = RBC) 4.84 4.70-6.10 [facility]LxtpuagNWBKSGREOE7939-28-28 18:46:00 Test Item Value Reference Range Interpretation Comments Hgb (test code = Hgb) 14.4 14.0-18.0 [facility] HospitalBhiynwmAPJFSIDOHW2477-56-73 18:46:00 Test Item Value Reference Range Interpretation Comments WBC (test code = WBC) 5.2 3.7-10.4 [facility] DallasSuzbdbcMFDUNEPRMA5145-27-84 18:46:00 Test Item Value Reference Range Interpretation Comments MCH (test code = MCH) 29.8 pg 27.0-31.0 [facility] DallasXvejvmkIBVRKZXSPI0608-39-16 18:46:00 Test Item Value Reference Range Interpretation Comments MCV (test code = MCV) 92.0 80.0-94.0 [facility]JqnlsgyYQCFOEEBZO7459-48-48 18:46:00 Test Item Value Reference Range Interpretation Comments Hct (test code = Hct) 44.5 42.0-54.0 [facility] HospitalQrcsjjeYSXPVJMUOU7242-92-33 18:46:00 Test Item Value Reference Range Interpretation Comments MCHC (test code = MCHC) 32.4 32.0-36.0 [facility]landsOftpufhNLOSUQTWTH8902-77-95 18:46:00 Test Item Value Reference Range Interpretation Comments [place]-Hep C Ab (test Negative *NA*(07/22/14 code = [place]-Hep C 1:46 PM) Ab) [facility] AND [id number] 18:46:00 Test Item Value Reference Range Interpretation Comments UA Urobilinogen (test code = UA <=1.0 mg/dL 0.1-1.0 Urobilinogen) [facility] [id number] 18:46:00 Test Item Value Reference Range Interpretation Comments UA Sq Epi (test code = UA Sq Epi) None [facility] [id number] 18:46:00 Test Item Value Reference Range Interpretation Comments UA Leuk Est (test Negative (07/22/14 1:46 code = UA Leuk Est) PM) [facility] AND [id number] 18:46:00 Test Item Value Reference Range Interpretation Comments UA Nitrite (test code Negative (07/22/14 1:46 = UA Nitrite) PM) [facility] AND [id number] 18:46:00 Test Item Value Reference Range Interpretation Comments UA Blood (test code = Negative (07/22/14 1:46 UA Blood) PM) [facility] AND [id number] 18:46:00 Test Item Value Reference Range Interpretation Comments UA Ketones (test code = UA Negative mg/dL Ketones) [facility] AND [id number] 18:46:00 Test Item Value Reference Range Interpretation Comments UA Bili (test code = Negative *NA*(07/22/14 UA Bili) 1:46 PM) [facility] AND [id number] 18:46:00 Test Item Value Reference Range Interpretation Comments UA Bacteria (test code = UA Occasional /HPF Bacteria) [facility] AND [id number] 18:46:00 Test Item Value Reference Range Interpretation Comments UA RBC (test code = no gt See_Comment [Automa elizabeth message] The UA RBC) system which ge nerated this result transmit elizabeth reference range : <=2. The reference range was not used to interpr et this result as margaret l/abnormal. [facility] AND [id number] 18:46:00 Test Item Value Reference Range Interpretation Comments UA WBC (test code = 1 See_Comment [Automa elizabeth message] The UA WBC) system which ge nerated this result transmit elizabeth reference range : <=5. The reference range was not used to interpr et this result as margaret l/abnormal. [facility] AND [id number] 18:46:00 Test Item Value Reference Range Interpretation Comments UA Glucose (test code = UA Glucose) 30 mg/dL [facility] AND [id number] 18:46:00 Test Item Value Reference Range Interpretation Comments UA Protein (test code = UA Negative mg/dL Protein) [facility] AND [id number] 18:46:00 Test Item Value Reference Range Interpretation Comments UA pH (test code = UA pH) 6.5 5.0-8.0 [facility] [id number] 18:46:00 Test Item Value Reference Range Interpretation Comments UA Turbidity (test code = Clear (07/22/14 1:46 [facility]A Turbidity) PM) [facility] [id number] 18:46:00 Test Item Value Reference Range Interpretation Comments UA Spec Grav (test code = UA Spec Grav) 1.010 [facility] AND [id number] 18:46:00 Test Item Value Reference Range Interpretation Comments UA Color (test code = Light Yellow UA Color) *NA*(07/22/14 1:46 PM) [facility] [id number] 18:46:00 Test Item Value Reference Range Interpretation Comments Magnesium Lvl (test code = Magnesium 1.8 1.8-2.4 Lvl) [facility]WskkxgnJJEQEMKEVPVF0536-90-47 18:46:00 Test Item Value Reference Range Interpretation Comments AGAP (test code = AGAP) 13.2 10.0-20.0 [facility]QswxhflMYDEVZUSGYTF5396-60-84 18:46:00 Test Item Value Reference Range Interpretation Comments B/C Ratio (test code = B/C Ratio) 18 6-25 [facility] HospitalNjswfssWGQRKQRLQIOR3707-43-91 18:46:00 Test Item Value Reference Range Interpretation Comments A/G Ratio (test code = A/G Ratio) 1.1 0.7-1.6 [facility] HospitalMibttklFALGGUHNFKTE1284-75-86 18:46:00 Test Item Value Reference Range Interpretation Comments Globulin (test code = Globulin) 3.3 2.0-4.0 [facility] ArlingtonIjpysotEXBXOOYBLSWI1953-70-25 18:46:00 Test Item Value Reference Range Interpretation Comments eGFR (test code = eGFR) 99 [facility] HospitalPvsjrawIMEYOABUQFUF1120-79-52 18:46:00 Test Item Value Reference Range Interpretation Comments Calcium Lvl (test code = Calcium Lvl) 9.0 8.5-10.5 [facility] ArlingtonBelbhbhCYRZOJLLXIIT7508-42-41 18:46:00 Test Item Value Reference Range Interpretation Comments Chloride Lvl (test code = Chloride Lvl) 106 95-109 [facility] HospitalRtdnqfyVPTGQRVHOUBT0452-13-90 18:46:00 Test Item Value Reference Range Interpretation Comments Creatinine Lvl (test code = Creatinine 0.9 0.5-1.4 Lvl) [facility] HospitalMtuofvaIYJWINVTZNMW2447-45-95 18:46:00 Test Item Value Reference Range Interpretation Comments Potassium Lvl (test code = Potassium 4.2 3.5-5.1 Lvl) [facility] HospitalLzgthjlIETPJZODFWSX1391-09-44 18:46:00 Test Item Value Reference Range Interpretation Comments Sodium Lvl (test code = Sodium Lvl) 139 135-145 [facility] HospitalHohmcgrQBSHKRABTXFQ1209-16-40 18:46:00 Test Item Value Reference Range Interpretation Comments CO2 (test code = CO2) 24 24-32 [facility] HospitalJksvbnnVMWIBSHHIMGI6317-18-49 18:46:00 Test Item Value Reference Range Interpretation Comments BUN (test code = BUN) 16 7-22 [facility] HospitalWawcmgsRZDASJDRZYHY3912-76-24 18:46:00 Test Item Value Reference Range Interpretation Comments Glucose Lvl (test code = Glucose Lvl) 141 70-99 [facility] HospitalAflsnmxGIBHTKRNKKHF0486-61-99 18:46:00 Test Item Value Reference Range Interpretation Comments Albumin Lvl (test code = Albumin Lvl) 3.6 3.5-5.0 [facility] HospitalDekzhpxEAFBCTDNEZCH7228-36-93 18:46:00 Test Item Value Reference Range Interpretation Comments Alk Phos (test code = Alk Phos) 65 39-136 [facility] HospitalPspwwtmBTYQRDQSXFFP9724-17-74 18:46:00 Test Item Value Reference Range Interpretation Comments Bili Total (test code = Bili Total) 0.3 0.2-1.3 [facility] HospitalGiwajhhZLTFOLYYSOHO1142-16-39 18:46:00 Test Item Value Reference Range Interpretation Comments ALT (test code = ALT) 100 See_Comment [Auto mated message] The system which ge nerated this result transmit elizabeth reference range : <=65. The reference range was not used to interpr et this result as margaret l/abnormal. [facility] HospitalEzaroesOAXAYYNUIFFB8426-76-51 18:46:00 Test Item Value Reference Range Interpretation Comments AST (test code = AST) 53 See_Comment [Auto mated message] The system which ge nerated this result transmit elizabeth reference range : <=37. The reference range was not used to interpr et this result as margaret l/abnormal. [facility] HospitalFmnbbhpHIAFIVFVHUWF7048-62-99 18:46:00 Test Item Value Reference Range Interpretation Comments Total Protein (test code = Total 6.9 6.4-8.4 Protein) [facility] DallasSqefumtOHTAQOTMSC4265-56-69 18:46:00 Test Item Value Reference Range Interpretation Comments Eosinophils (test code = 4.2 See_Comment [A utomated message] The Eosinophils) system which ge nerated this result tra nsmitted reference range : <=4.0. The reference r mitra was not used to int erpret this result as normal/abnormal . [facility] DallasXmfqsstUDZNFCZKHV4136-32-39 18:46:00 Test Item Value Reference Range Interpretation Comments Segs (test code = Segs) 56.4 45.0-75.0 [facility] DallasNorymasODEBSUFBIY4986-76-70 18:46:00 Test Item Value Reference Range Interpretation Comments Monocytes (test code = Monocytes) 10.3 2.0-12.0 [facility] DallasWnxiunoDUJVJLBHVI1680-86-99 18:46:00 Test Item Value Reference Range Interpretation Comments Lymphocytes (test code = Lymphocytes) 28.0 20.0-40.0 [facility] DallasTsvnwllMZZRCTDQNR2842-09-01 18:46:00 Test Item Value Reference Range Interpretation Comments Monocytes # (test code 0.5 See_Comment [Aut omated message] The = Monocytes #) system which generated this result tra nsmitted reference range : <=0.8. The reference r mitra was not used to int erpret this result as normal/abnormal . [facility] DallasVngedbtHKQVNQZFXY2357-75-71 18:46:00 Test Item Value Reference Range Interpretation Comments Basophils (test code = 1.1 See_Comment [Aut omated message] The Basophils) system which ge nerated this result tra nsmitted reference range : <=1.0. The reference r mitra was not used to int erpret this result as normal/abnormal . [facility] DallasUpmdqzxGNSDECDNGR6182-80-97 18:46:00 Test Item Value Reference Range Interpretation Comments Lymphocytes # (test code = Lymphocytes 1.5 1.0-5.5 #) [facility] DallasUylsakiRJBCELDQDZ9791-84-54 18:46:00 Test Item Value Reference Range Interpretation Comments Segs-Bands # (test code = Segs-Bands #) 2.9 1.5-8.1 [facility] DallasSkcaslpLTTUYBFQWD9225-44-24 18:46:00 Test Item Value Reference Range Interpretation Comments Eosinophils # (test code 0.2 See_Comment [A utomated message] The = Eosinophils #) system whic h generated this result tra nsmitted reference range : <=0.5. The reference r mitra was not used to int erpret this result as normal/abnormal . [facility] DallasIteisygFVROTZFIHJ3811-11-81 18:46:00 Test Item Value Reference Range Interpretation Comments Basophils # (test code 0.1 See_Comment [Aut omated message] The = Basophils #) system which generated this result tra nsmitted reference range : <=0.2. The reference r mitra was not used to int erpret this result as normal/abnormal . [facility] DallasHsibangWHCXPGWVCQ7900-81-38 18:46:00 Test Item Value Reference Range Interpretation Comments PT (test code = PT) 11.2 s 12.0-14.7 [facility] DallasZhxymmrUMDFYWBCGF0313-02-62 18:46:00 Test Item Value Reference Range Interpretation Comments INR (test code = INR) 0.82 0.85-1.17 [facility] DallasYchyzyvTHTIXJRWJT6205-75-33 18:46:00 Test Item Value Reference Range Interpretation Comments PTT (test code = PTT) 28.6 s 22.9-35.8 [facility] DallasLpbtwfbOUVOFTRABD0270-14-96 18:46:00 Test Item Value Reference Range Interpretation Comments MPV (test code = MPV) 8.1 7.4-10.4 [facility] DallasTmerargKQZTCNVUIA1154-34-06 18:46:00 Test Item Value Reference Range Interpretation Comments Platelet (test code = Platelet) 301 133-450 [facility] DallasNpdaectYEVJDXINMM0989-53-93 18:46:00 Test Item Value Reference Range Interpretation Comments RDW (test code = RDW) 14.5 11.5-14.5 [facility] DallasDmvzbiyDNZOZYMOOI4213-13-85 18:46:00 Test Item Value Reference Range Interpretation Comments RBC (test code = RBC) 4.84 4.70-6.10 [facility] DallasPmemdvgFOGMQIMLQD6263-95-64 18:46:00 Test Item Value Reference Range Interpretation Comments Hgb (test code = Hgb) 14.4 14.0-18.0 [facility] DallasRoybawcJWSMJLGUPA1464-01-12 18:46:00 Test Item Value Reference Range Interpretation Comments WBC (test code = WBC) 5.2 3.7-10.4 [facility] FzemmcxMGXNNVMBRQ6414-60-46 18:46:00 Test Item Value Reference Range Interpretation Comments MCH (test code = MCH) 29.8 pg 27.0-31.0 [facility] DkdzujxKDRQMPCFVP9826-72-01 18:46:00 Test Item Value Reference Range Interpretation Comments MCV (test code = MCV) 92.0 80.0-94.0 [facility] DlbekqjLUBPBNAJGC3043-06-11 18:46:00 Test Item Value Reference Range Interpretation Comments Hct (test code = Hct) 44.5 42.0-54.0 [facility] ByghodnEFWKQLSHEL7080-15-84 18:46:00 Test Item Value Reference Range Interpretation Comments MCHC (test code = MCHC) 32.4 32.0-36.0 [facility]landsOwrcygdQWNDGMCVMW7865-48-33 18:46:00 Test Item Value Reference Range Interpretation Comments [place]-Hep C Ab (test Negative *NA*(07/22/14 code = [place]-Hep C 1:46 PM) Ab) [facility] AND [id number] 18:46:00 Test Item Value Reference Range Interpretation Comments UA Urobilinogen (test code = UA <=1.0 mg/dL 0.1-1.0 Urobilinogen) [facility] AND [id number] 18:46:00 Test Item Value Reference Range Interpretation Comments UA Sq Epi (test code = UA Sq Epi) None Seen [facility] AND [id number] 18:46:00 Test Item Value Reference Range Interpretation Comments UA Leuk Est (test Negative (07/22/14 1:46 code = UA Leuk Est) PM) [facility] AND [id number] 18:46:00 Test Item Value Reference Range Interpretation Comments UA Nitrite (test code Negative (07/22/14 1:46 = UA Nitrite) PM) [facility] AND [id number] 18:46:00 Test Item Value Reference Range Interpretation Comments UA Blood (test code = Negative (07/22/14 1:46 UA Blood) PM) [facility] AND [id number] 18:46:00 Test Item Value Reference Range Interpretation Comments UA Ketones (test code = UA Negative mg/dL Ketones) [facility] AND [id number] 18:46:00 Test Item Value Reference Range Interpretation Comments UA Bili (test code = Negative *NA*(07/22/14 UA Bili) 1:46 PM) [facility] AND [id number] 18:46:00 Test Item Value Reference Range Interpretation Comments UA Bacteria (test code = UA Occasional /HPF Bacteria) [facility] AND [id number] 18:46:00 Test Item Value Reference Range Interpretation Comments UA RBC (test code = no gt See_Comment [Automa elizabeth message] The UA RBC) system which ge nerated this result transmit elizabeth reference range : <=2. The reference range was not used to interpr et this result as margaret l/abnormal. [facility] AND [id number] 18:46:00 Test Item Value Reference Range Interpretation Comments UA WBC (test code = 1 See_Comment [Automa elizabeth message] The UA WBC) system which ge nerated this result transmit elizabeth reference range : <=5. The reference range was not used to interpr et this result as margaret l/abnormal. [facility] AND [id number] 18:46:00 Test Item Value Reference Range Interpretation Comments UA Glucose (test code = UA Glucose) 30 mg/dL [facility] AND [id number] 18:46:00 Test Item Value Reference Range Interpretation Comments UA Protein (test code = UA Negative mg/dL Protein) [facility] AND [id number] 18:46:00 Test Item Value Reference Range Interpretation Comments UA pH (test code = UA pH) 6.5 5.0-8.0 [facility] AND [id number] 18:46:00 Test Item Value Reference Range Interpretation Comments UA Turbidity (test code = Clear (07/22/14 1:46 UA Turbidity) PM) [facility] AND [id number] 18:46:00 Test Item Value Reference Range Interpretation Comments UA Spec Grav (test code = UA Spec Grav) 1.010 [facility] AND [id number] 18:46:00 Test Item Value Reference Range Interpretation Comments UA Color (test code = Light Yellow UA Color) *NA*(07/22/14 1:46 PM) [facility]2015-06-09 18:46:00 Test Item Value Reference Range Interpretation Comments Magnesium Lvl (test code = Magnesium 1.8 1.8-2.4 Lvl) [facility] HospitalOdmqmjgZJADKTEPGUXU4855-12-39 18:46:00 Test Item Value Reference Range Interpretation Comments AGAP (test code = AGAP) 13.2 10.0-20.0 [facility] HospitalNbgnhdhPTYTSCQDSHCI6799-62-71 18:46:00 Test Item Value Reference Range Interpretation Comments B/C Ratio (test code = B/C Ratio) 18 6-25 [facility] HospitalJrnttioVYOUJUMFFTKS1758-68-74 18:46:00 Test Item Value Reference Range Interpretation Comments A/G Ratio (test code = A/G Ratio) 1.1 0.7-1.6 [facility] HospitalJjbzkdlFIVKXIFFOKJV1727-69-72 18:46:00 Test Item Value Reference Range Interpretation Comments Globulin (test code = Globulin) 3.3 2.0-4.0 [facility] HospitalBahykjiPAJNVNOEVEQE9637-29-70 18:46:00 Test Item Value Reference Range Interpretation Comments eGFR (test code = eGFR) 99 [facility] HospitalYugqohvDTRLPHVYCVPH0979-32-05 18:46:00 Test Item Value Reference Range Interpretation Comments Calcium Lvl (test code = Calcium Lvl) 9.0 8.5-10.5 [facility] HospitalAjcnsxrUTKHGLWAHNEK4427-36-00 18:46:00 Test Item Value Reference Range Interpretation Comments Chloride Lvl (test code = Chloride Lvl) 106 95-109 [facility] HospitalZwccuysAFOYZACXUYQT7275-99-68 18:46:00 Test Item Value Reference Range Interpretation Comments Creatinine Lvl (test code = Creatinine 0.9 0.5-1.4 Lvl) [facility] HospitalOysqvuuQDMRDCXELRXM5149-13-13 18:46:00 Test Item Value Reference Range Interpretation Comments Potassium Lvl (test code = Potassium 4.2 3.5-5.1 Lvl) [facility] HospitalHgmickjVUSAQMAQDZGV6312-28-14 18:46:00 Test Item Value Reference Range Interpretation Comments Sodium Lvl (test code = Sodium Lvl) 139 135-145 [facility] HospitalUtjmoswIRGCWUKBAELF6562-34-64 18:46:00 Test Item Value Reference Range Interpretation Comments CO2 (test code = CO2) 24 24-32 [facility] HospitalNhwcwkvQFBGWLAMAOXW9759-75-13 18:46:00 Test Item Value Reference Range Interpretation Comments BUN (test code = BUN) 16 7-22 [facility] HospitalMzhjaalVNTETYUVVSLR4706-50-91 18:46:00 Test Item Value Reference Range Interpretation Comments Glucose Lvl (test code = Glucose Lvl) 141 70-99 [facility] HospitalBbehcksFMGPHDKANTEJ2797-15-37 18:46:00 Test Item Value Reference Range Interpretation Comments Albumin Lvl (test code = Albumin Lvl) 3.6 3.5-5.0 [facility] HospitalSfhlfirCRPHRIFOKVDO7572-47-72 18:46:00 Test Item Value Reference Range Interpretation Comments Alk Phos (test code = Alk Phos) 65 39-136 [facility] HospitalSqefhxmWVSRHDIUEYBG5804-63-28 18:46:00 Test Item Value Reference Range Interpretation Comments Bili Total (test code = Bili Total) 0.3 0.2-1.3 [facility] HospitalWrsbvbmMUFQSCFHPDKI7772-13-64 18:46:00 Test Item Value Reference Range Interpretation Comments ALT (test code = ALT) 100 See_Comment [Auto mated message] The system which ge nerated this result transmit elizabeth reference range : <=65. The reference range was not used to interpr et this result as margaret l/abnormal. [facility] HospitalQzunuhzGEWVWAYYEXTJ7049-01-07 18:46:00 Test Item Value Reference Range Interpretation Comments AST (test code = AST) 53 See_Comment [Auto mated message] The system which ge nerated this result transmit elizabeth reference range : <=37. The reference range was not used to interpr et this result as margaret l/abnormal. [facility] HospitalXwekngbNVBUFAXXVERI6585-39-48 18:46:00 Test Item Value Reference Range Interpretation Comments Total Protein (test code = Total 6.9 6.4-8.4 Protein) [facility] DallasGvddcxmYHFCSVHFZH3417-15-24 18:46:00 Test Item Value Reference Range Interpretation Comments Eosinophils (test code = 4.2 See_Comment [A utomated message] The Eosinophils) system which ge nerated this result tra nsmitted reference range : <=4.0. The reference r mitra was not used to int erpret this result as normal/abnormal . [facility] DallasOxoczbsAHRPOTHTMX8879-62-74 18:46:00 Test Item Value Reference Range Interpretation Comments Segs (test code = Segs) 56.4 45.0-75.0 [facility] DallasVgtguemBAVNQSPFGF3921-70-71 18:46:00 Test Item Value Reference Range Interpretation Comments Monocytes (test code = Monocytes) 10.3 2.0-12.0 [facility] DallasPyqlhueVHPSUOHXXU0777-46-48 18:46:00 Test Item Value Reference Range Interpretation Comments Lymphocytes (test code = Lymphocytes) 28.0 20.0-40.0 [facility] DallasIoxdgvrKJRIYDFXAE0677-79-03 18:46:00 Test Item Value Reference Range Interpretation Comments Monocytes # (test code 0.5 See_Comment [Aut omated message] The = Monocytes #) system which generated this result tra nsmitted reference range : <=0.8. The reference r mitra was not used to int erpret this result as normal/abnormal . [facility] DallasNtrulmsOQFOJEJMCQ6025-09-20 18:46:00 Test Item Value Reference Range Interpretation Comments Basophils (test code = 1.1 See_Comment [Aut omated message] The Basophils) system which ge nerated this result tra nsmitted reference range : <=1.0. The reference r mitra was not used to int erpret this result as normal/abnormal . [facility] DallasCiuhoyvIVHIZDGUEF2031-08-08 18:46:00 Test Item Value Reference Range Interpretation Comments Lymphocytes # (test code = Lymphocytes 1.5 1.0-5.5 #) [facility] DallasEgfhmhsTRRRGUZXXY9341-03-84 18:46:00 Test Item Value Reference Range Interpretation Comments Segs-Bands # (test code = Segs-Bands #) 2.9 1.5-8.1 [facility] DallasMvpjfmbHVBBRSOIOA9789-23-38 18:46:00 Test Item Value Reference Range Interpretation Comments Eosinophils # (test code 0.2 See_Comment [A utomated message] The = Eosinophils #) system whic h generated this result tra nsmitted reference range : <=0.5. The reference r mitra was not used to int erpret this result as normal/abnormal . [facility] DallasOawmhdiNAXNAZIDOX2917-05-51 18:46:00 Test Item Value Reference Range Interpretation Comments Basophils # (test code 0.1 See_Comment [Aut omated message] The = Basophils #) system which generated this result tra nsmitted reference range : <=0.2. The reference r mitra was not used to int erpret this result as normal/abnormal . [facility] DallasDbmsisvSWOXGLPXUC0062-13-53 18:46:00 Test Item Value Reference Range Interpretation Comments PT (test code = PT) 11.2 s 12.0-14.7 [place] 409035-06-09 18:46:00 Test Item Value Reference Range Interpretation Comments INR (test code = INR) 0.82 0.85-1.17 [facility]FcsykjyIPVDXNEWMS6647-63-06 18:46:00 Test Item Value Reference Range Interpretation Comments PTT (test code = PTT) 28.6 s 22.9-35.8 [facility] DallasYygugbqPFEFXSVLGK5760-90-77 18:46:00 Test Item Value Reference Range Interpretation Comments MPV (test code = MPV) 8.1 7.4-10.4 [place] [id number] 18:46:00 Test Item Value Reference Range Interpretation Comments Platelet (test code = Platelet) 301 133-450 [facility] DallasDuzdhirSBQMTYWSCY4814-05-44 18:46:00 Test Item Value Reference Range Interpretation Comments RDW (test code = RDW) 14.5 11.5-14.5 [facility] DallasOhycgdqBGTTCZOMRC5934-52-20 18:46:00 Test Item Value Reference Range Interpretation Comments RBC (test code = RBC) 4.84 4.70-6.10 [facility] DallasHsrksvpAFLPSIOXIY5700-57-23 18:46:00 Test Item Value Reference Range Interpretation Comments Hgb (test code = Hgb) 14.4 14.0-18.0 [facility] DallasMdeudlhHBFRDVGMLS9888-45-44 18:46:00 Test Item Value Reference Range Interpretation Comments WBC (test code = WBC) 5.2 3.7-10.4 [facility] DallasVwgbyvaNJFPMUSCFV4557-58-26 18:46:00 Test Item Value Reference Range Interpretation Comments MCH (test code = MCH) 29.8 pg 27.0-31.0 [facility] DallasYjvkxwdBCCEFWEKTR5660-62-52 18:46:00 Test Item Value Reference Range Interpretation Comments MCV (test code = MCV) 92.0 80.0-94.0 [place] [id number] 18:46:00 Test Item Value Reference Range Interpretation Comments Hct (test code = Hct) 44.5 42.0-54.0 [facility]landsAyullhlDPQMOMZUAD4315-86-36 18:46:00 Test Item Value Reference Range Interpretation Comments MCHC (test code = MCHC) 32.4 32.0-36.0 [facility]ILORZS3451[facility] 18:46:00 Test Item Value Reference Range Interpretation Comments [place]-Hep C Ab (test Negative *NA*(07/22/14 code = [place]-Hep C 1:46 PM) Ab) [facility] AND [id number] 18:46:00 Test Item Value Reference Range Interpretation Comments UA Urobilinogen (test code = UA <=1.0 mg/dL 0.1-1.0 Urobilinogen) [facility] AND [id number] 18:46:00 Test Item Value Reference Range Interpretation Comments UA Sq Epi (test code = UA Sq Epi) None Seen [facility] AND [id number] 18:46:00 Test Item Value Reference Range Interpretation Comments UA Leuk Est (test Negative (07/22/14 1:46 code = UA Leuk Est) PM) [facility] AND [id number] 18:46:00 Test Item Value Reference Range Interpretation Comments UA Nitrite (test code Negative (07/22/14 1:46 = UA Nitrite) PM) [facility] AND [id number] 18:46:00 Test Item Value Reference Range Interpretation Comments UA Blood (test code = Negative (07/22/14 1:46 UA Blood) PM) [facility] AND [id number] 18:46:00 Test Item Value Reference Range Interpretation Comments UA Ketones (test code = UA Negative mg/dL Ketones) [facility] AND [id number] 18:46:00 Test Item Value Reference Range Interpretation Comments UA Bili (test code = Negative *NA*(07/22/14 UA Bili) 1:46 PM) [facility] AND [id number] 18:46:00 Test Item Value Reference Range Interpretation Comments UA Bacteria (test code = UA Occasional /HPF Bacteria) [facility] AND [id number] 18:46:00 Test Item Value Reference Range Interpretation Comments UA RBC (test code = no gt See_Comment [Automa elizabeth message] The UA RBC) system which ge nerated this result transmit elizabeth reference range : <=2. The reference range was not used to interpr et this result as margaret l/abnormal. [facility] AND [id number] 18:46:00 Test Item Value Reference Range Interpretation Comments UA WBC (test code = 1 See_Comment [Automa elizabeth message] The UA WBC) system which ge nerated this result transmit elizabeth reference range : <=5. The reference range was not used to interpr et this result as margaret l/abnormal. [facility] AND [id number] 18:46:00 Test Item Value Reference Range Interpretation Comments UA Glucose (test code = UA Glucose) 30 mg/dL [facility] AND [id number] 18:46:00 Test Item Value Reference Range Interpretation Comments UA Protein (test code = UA Negative mg/dL Protein) [facility] AND [id number] 18:46:00 Test Item Value Reference Range Interpretation Comments UA pH (test code = UA pH) 6.5 5.0-8.0 [facility] AND [id number] 18:46:00 Test Item Value Reference Range Interpretation Comments UA Turbidity (test code = Clear (07/22/14 1:46 UA Turbidity) PM) [facility] AND [id number] 18:46:00 Test Item Value Reference Range Interpretation Comments UA Spec Grav (test code = UA Spec Grav) 1.010 [facility] AND [id number] 18:46:00 Test Item Value Reference Range Interpretation Comments UA Color (test code = Light Yellow UA Color) *NA*(07/22/14 1:46 PM) [facility]annCHEM [id number] 18:46:00 Test Item Value Reference Range Interpretation Comments Magnesium Lvl (test code = Magnesium 1.8 1.8-2.4 Lvl) [facility]HkrlypgEYWYAVIXQIJK5453-08-70 18:46:00 Test Item Value Reference Range Interpretation Comments AGAP (test code = AGAP) 13.2 10.0-20.0 [facility]TcunxwdQQJGYSYPDDFD9775-95-53 18:46:00 Test Item Value Reference Range Interpretation Comments B/C Ratio (test code = B/C Ratio) 18 6-25 [facility] HospitalBdwehmyXXVZOEPKZNCY7143-21-15 18:46:00 Test Item Value Reference Range Interpretation Comments A/G Ratio (test code = A/G Ratio) 1.1 0.7-1.6 [facility] HospitalIdyodosLHDQIYUOKPBF3574-31-33 18:46:00 Test Item Value Reference Range Interpretation Comments Globulin (test code = Globulin) 3.3 2.0-4.0 [facility] HospitalAqekzsyITDPORPCPLZT3664-60-83 18:46:00 Test Item Value Reference Range Interpretation Comments eGFR (test code = eGFR) 99 [facility] HospitalWzrpemwBOOBDVWEDWTM5930-53-82 18:46:00 Test Item Value Reference Range Interpretation Comments Calcium Lvl (test code = Calcium Lvl) 9.0 8.5-10.5 [facility] HospitalYwbxblhZIWXVYOVGVSA8046-04-42 18:46:00 Test Item Value Reference Range Interpretation Comments Chloride Lvl (test code = Chloride Lvl) 106 95-109 [facility] HospitalPyrhdrpMUEOCZITVOXL2609-69-22 18:46:00 Test Item Value Reference Range Interpretation Comments Creatinine Lvl (test code = Creatinine 0.9 0.5-1.4 Lvl) [facility] HospitalCfcydbiEBYXYNFMQMMO6684-55-56 18:46:00 Test Item Value Reference Range Interpretation Comments Potassium Lvl (test code = Potassium 4.2 3.5-5.1 Lvl) [facility] HospitalHdkgarlADXPRBNNYUCD9481-68-74 18:46:00 Test Item Value Reference Range Interpretation Comments Sodium Lvl (test code = Sodium Lvl) 139 135-145 [facility] HospitalQyjelxgKLEVUTBRRWMM8483-37-59 18:46:00 Test Item Value Reference Range Interpretation Comments CO2 (test code = CO2) 24 24-32 [facility] HospitalOauqhwvCNZYPXTEPEXQ8007-97-63 18:46:00 Test Item Value Reference Range Interpretation Comments BUN (test code = BUN) 16 7-22 [facility] HospitalJirrhupDPNMLHFKAHNM7097-80-14 18:46:00 Test Item Value Reference Range Interpretation Comments Glucose Lvl (test code = Glucose Lvl) 141 70-99 [facility] HospitalOwowprbGILOWCEKTZPV6147-74-59 18:46:00 Test Item Value Reference Range Interpretation Comments Albumin Lvl (test code = Albumin Lvl) 3.6 3.5-5.0 [facility] HospitalIhiwgjnGRUNFCZFTDGN1479-92-83 18:46:00 Test Item Value Reference Range Interpretation Comments Alk Phos (test code = Alk Phos) 65 39-136 [facility] HospitalXnvdfzdCJXBARHBNSXA3601-90-61 18:46:00 Test Item Value Reference Range Interpretation Comments Bili Total (test code = Bili Total) 0.3 0.2-1.3 [facility] HospitalKqzwuvkKDTCMSRXUTOY3073-03-36 18:46:00 Test Item Value Reference Range Interpretation Comments ALT (test code = ALT) 100 See_Comment [Auto mated message] The system which ge nerated this result transmit elizabeth reference range : <=65. The reference range was not used to interpr et this result as margaret l/abnormal. [facility] HospitalEcbeatdJZAFQUQTOCXY2841-03-31 18:46:00 Test Item Value Reference Range Interpretation Comments AST (test code = AST) 53 See_Comment [Auto mated message] The system which ge nerated this result transmit elizabeth reference range : <=37. The reference range was not used to interpr et this result as margaret l/abnormal. [facility] HospitalCpyxhokEJYNDSRCCXLV2515-86-15 18:46:00 Test Item Value Reference Range Interpretation Comments Total Protein (test code = Total 6.9 6.4-8.4 Protein) [facility] DallasNxvixqdXUDDYLQNQK2208-62-97 18:46:00 Test Item Value Reference Range Interpretation Comments Eosinophils (test code = 4.2 See_Comment [A utomated message] The Eosinophils) system which ge nerated this result tra nsmitted reference range : <=4.0. The reference r mitra was not used to int erpret this result as normal/abnormal . [facility] DallasVfzkoluMBTDHZREFB4896-08-36 18:46:00 Test Item Value Reference Range Interpretation Comments Segs (test code = Segs) 56.4 45.0-75.0 [facility] DallasSdyidlkJVTHRDHWBX2666-44-13 18:46:00 Test Item Value Reference Range Interpretation Comments Monocytes (test code = Monocytes) 10.3 2.0-12.0 [facility] DallasYmiencvLFNWDKQRJK9534-27-90 18:46:00 Test Item Value Reference Range Interpretation Comments Lymphocytes (test code = Lymphocytes) 28.0 20.0-40.0 [facility] DallasOoyqodoEOXFLYDJLU4418-36-52 18:46:00 Test Item Value Reference Range Interpretation Comments Monocytes # (test code 0.5 See_Comment [Aut omated message] The = Monocytes #) system which generated this result tra nsmitted reference range : <=0.8. The reference r mitra was not used to int erpret this result as normal/abnormal . [facility] DallasYiqznyyLVPHVNMSHU0655-34-53 18:46:00 Test Item Value Reference Range Interpretation Comments Basophils (test code = 1.1 See_Comment [Aut omated message] The Basophils) system which ge nerated this result tra nsmitted reference range : <=1.0. The reference r mitra was not used to int erpret this result as normal/abnormal . [facility] DallasPuyucicCTYMDWKBLC0078-64-74 18:46:00 Test Item Value Reference Range Interpretation Comments Lymphocytes # (test code = Lymphocytes 1.5 1.0-5.5 #) [facility] DallasAugsuezAHLWXGREKC0514-62-67 18:46:00 Test Item Value Reference Range Interpretation Comments Segs-Bands # (test code = Segs-Bands #) 2.9 1.5-8.1 [facility] DallasFkrqhrzFGBQSPZCQT7633-19-90 18:46:00 Test Item Value Reference Range Interpretation Comments Eosinophils # (test code 0.2 See_Comment [A utomated message] The = Eosinophils #) system whic h generated this result tra nsmitted reference range : <=0.5. The reference r mitra was not used to int erpret this result as normal/abnormal . [facility] DallasShocjwlYLDMQXJHCR0248-23-45 18:46:00 Test Item Value Reference Range Interpretation Comments Basophils # (test code 0.1 See_Comment [Aut omated message] The = Basophils #) system which generated this result tra nsmitted reference range : <=0.2. The reference r mitra was not used to int erpret this result as normal/abnormal . [facility] DallasStgwsilEKWZRKUISW9112-13-94 18:46:00 Test Item Value Reference Range Interpretation Comments PT (test code = PT) 11.2 s 12.0-14.7 [facility] DallasZrtifowZQWLHOCJSM6898-81-93 18:46:00 Test Item Value Reference Range Interpretation Comments INR (test code = INR) 0.82 0.85-1.17 [facility] DallasDdbpuksUCCSARMPPC3987-74-94 18:46:00 Test Item Value Reference Range Interpretation Comments PTT (test code = PTT) 28.6 s 22.9-35.8 [facility]BfgycyxJDCGXVKLAZ7495-48-27 18:46:00 Test Item Value Reference Range Interpretation Comments MPV (test code = MPV) 8.1 7.4-10.4 [facility]TayhbiwFSUWIEVRYL5127-59-36 18:46:00 Test Item Value Reference Range Interpretation Comments Platelet (test code = Platelet) 301 133-450 [facility] HospitalYkrmhebISBGIBWGFO9741-57-21 18:46:00 Test Item Value Reference Range Interpretation Comments RDW (test code = RDW) 14.5 11.5-14.5 [facility] HospitalYudoobjXQOBNPRVFA0972-81-31 18:46:00 Test Item Value Reference Range Interpretation Comments RBC (test code = RBC) 4.84 4.70-6.10 [facility] HospitalRlykjvoUSKZHBQKGU9510-48-78 18:46:00 Test Item Value Reference Range Interpretation Comments Hgb (test code = Hgb) 14.4 14.0-18.0 [facility] HospitalYnwpropGOHWRWWAKG1300-13-05 18:46:00 Test Item Value Reference Range Interpretation Comments WBC (test code = WBC) 5.2 3.7-10.4 [facility]landsDmydxcqXCXCZNDDCH6909-81-58 18:46:00 Test Item Value Reference Range Interpretation Comments MCH (test code = MCH) 29.8 pg 27.0-31.0 [facility]landsSxiwrivFFKENNFWBL0298-37-16 18:46:00 Test Item Value Reference Range Interpretation Comments MCV (test code = MCV) 92.0 80.0-94.0 [facility]landsIklugldLTWMRUYJLH2781-32-74 18:46:00 Test Item Value Reference Range Interpretation Comments Hct (test code = Hct) 44.5 42.0-54.0 [facility]landsXjycjcbWIJXZWOVIX9737-13-31 18:46:00 Test Item Value Reference Range Interpretation Comments MCHC (test code = MCHC) 32.4 32.0-36.0 [facility]landsQjawompRJBOFBAGHQ5243-29-51 18:46:00 Test Item Value Reference Range Interpretation Comments [place]-Hep C Ab (test Negative *NA*(07/22/14 code = [place]-Hep C 1:46 PM) Ab) [facility] [id number] 18:46:00 Test Item Value Reference Range Interpretation Comments UA Urobilinogen (test code = UA <=1.0 mg/dL 0.1-1.0 Urobilinogen) [facility] AND [id number] 18:46:00 Test Item Value Reference Range Interpretation Comments UA Sq Epi (test code = UA Sq Epi) None Seen [facility] AND [id number] 18:46:00 Test Item Value Reference Range Interpretation Comments UA Leuk Est (test Negative (07/22/14 1:46 code = UA Leuk Est) PM) [facility] AND [id number] 18:46:00 Test Item Value Reference Range Interpretation Comments UA Nitrite (test code Negative (07/22/14 1:46 = UA Nitrite) PM) [facility] AND [id number] 18:46:00 Test Item Value Reference Range Interpretation Comments UA Blood (test code = Negative (07/22/14 1:46 UA Blood) PM) [facility] AND [id number] 18:46:00 Test Item Value Reference Range Interpretation Comments UA Ketones (test code = UA Negative mg/dL Ketones) [facility] AND [id number] 18:46:00 Test Item Value Reference Range Interpretation Comments UA Bili (test code = Negative *NA*(07/22/14 UA Bili) 1:46 PM) [facility] AND [id number] 18:46:00 Test Item Value Reference Range Interpretation Comments UA Bacteria (test code = UA Occasional /HPF Bacteria) [facility] AND [id number] 18:46:00 Test Item Value Reference Range Interpretation Comments UA RBC (test code = no gt See_Comment [Automa elizabeth message] The UA RBC) system which ge nerated this result transmit elizabeth reference range : <=2. The reference range was not used to interpr et this result as margaret l/abnormal. [facility] AND [id number] 18:46:00 Test Item Value Reference Range Interpretation Comments UA WBC (test code = 1 See_Comment [Automa elizabeth message] The UA WBC) system which ge nerated this result transmit elizabeth reference range : <=5. The reference range was not used to interpr et this result as margaret l/abnormal. [facility] AND [id number] 18:46:00 Test Item Value Reference Range Interpretation Comments UA Glucose (test code = UA Glucose) 30 mg/dL [facility] AND [id number] 18:46:00 Test Item Value Reference Range Interpretation Comments UA Protein (test code = UA Negative mg/dL Protein) [facility] AND [id number] 18:46:00 Test Item Value Reference Range Interpretation Comments UA pH (test code = UA pH) 6.5 5.0-8.0 [facility] AND [id number] 18:46:00 Test Item Value Reference Range Interpretation Comments UA Turbidity (test code = Clear (07/22/14 1:46 UA Turbidity) PM) [facility] AND [id number] 18:46:00 Test Item Value Reference Range Interpretation Comments UA Spec Grav (test code = UA Spec Grav) 1.010 [facility] AND [id number] 18:46:00 Test Item Value Reference Range Interpretation Comments UA Color (test code = Light Yellow UA Color) *NA*(07/22/14 1:46 PM) [facility] [id number] 18:46:00 Test Item Value Reference Range Interpretation Comments Magnesium Lvl (test code = Magnesium 1.8 1.8-2.4 Lvl) [facility] HospitalFcwzkuiENDXPZZTJDHT3733-29-18 18:46:00 Test Item Value Reference Range Interpretation Comments AGAP (test code = AGAP) 13.2 10.0-20.0 [facility] HospitalUkdhippCXOQPZUVZWLM4958-46-90 18:46:00 Test Item Value Reference Range Interpretation Comments B/C Ratio (test code = B/C Ratio) 18 6-25 [facility] HospitalByjdiyrSVUEAXOCURZV3003-34-94 18:46:00 Test Item Value Reference Range Interpretation Comments A/G Ratio (test code = A/G Ratio) 1.1 0.7-1.6 [facility] HospitalRlzsuvkAWZZJCNUBDWK1023-87-10 18:46:00 Test Item Value Reference Range Interpretation Comments Globulin (test code = Globulin) 3.3 2.0-4.0 [facility] HospitalVsdomjnSRSTDEGTCVSP6549-69-34 18:46:00 Test Item Value Reference Range Interpretation Comments eGFR (test code = eGFR) 99 [facility] HospitalEyztjeaQCKXCNAZYDVR6218-36-70 18:46:00 Test Item Value Reference Range Interpretation Comments Calcium Lvl (test code = Calcium Lvl) 9.0 8.5-10.5 [facility] HospitalDmxuxeiHKYTMHHVKEFA8178-49-54 18:46:00 Test Item Value Reference Range Interpretation Comments Chloride Lvl (test code = Chloride Lvl) 106 95-109 [facility] HospitalTxolylpMBTNFSKYWWLT9787-25-69 18:46:00 Test Item Value Reference Range Interpretation Comments Creatinine Lvl (test code = Creatinine 0.9 0.5-1.4 Lvl) [facility] HospitalRhismrfQBBRFCVKWODD7470-80-47 18:46:00 Test Item Value Reference Range Interpretation Comments Potassium Lvl (test code = Potassium 4.2 3.5-5.1 Lvl) [facility] HospitalIvcszhtOHKESMGIDCBT3868-91-33 18:46:00 Test Item Value Reference Range Interpretation Comments Sodium Lvl (test code = Sodium Lvl) 139 135-145 [facility] HospitalCbitrieNCJPZDEGQTGZ1153-59-47 18:46:00 Test Item Value Reference Range Interpretation Comments CO2 (test code = CO2) 24 24-32 [facility] HospitalVhclovkWXBOBBTRGPOE8030-86-41 18:46:00 Test Item Value Reference Range Interpretation Comments BUN (test code = BUN) 16 7-22 [facility] HospitalNqymuffYSKWOZPSHUKK8650-44-67 18:46:00 Test Item Value Reference Range Interpretation Comments Glucose Lvl (test code = Glucose Lvl) 141 70-99 [facility] HospitalXifvhzjCZKUQSBWQAZV3603-69-31 18:46:00 Test Item Value Reference Range Interpretation Comments Albumin Lvl (test code = Albumin Lvl) 3.6 3.5-5.0 [facility] HospitalAgjmpikUWZYGTZXTZAW2465-87-16 18:46:00 Test Item Value Reference Range Interpretation Comments Alk Phos (test code = Alk Phos) 65 39-136 [facility] HospitalOptzwhaJNXKGIDRUHRU5809-44-46 18:46:00 Test Item Value Reference Range Interpretation Comments Bili Total (test code = Bili Total) 0.3 0.2-1.3 [facility] HospitalEyfisjzEBHOWZCYWXLW0669-39-40 18:46:00 Test Item Value Reference Range Interpretation Comments ALT (test code = ALT) 100 See_Comment [Auto mated message] The system which ge nerated this result transmit elizabeth reference range : <=65. The reference range was not used to interpr et this result as margaret l/abnormal. [facility] HospitalEwsbcakXYYJIRCOYVCY3655-30-23 18:46:00 Test Item Value Reference Range Interpretation Comments AST (test code = AST) 53 See_Comment [Auto mated message] The system which ge nerated this result transmit elizabeth reference range : <=37. The reference range was not used to interpr et this result as margaret l/abnormal. [facility] HospitalThaylcbIGJASQIHQDXB8317-08-56 18:46:00 Test Item Value Reference Range Interpretation Comments Total Protein (test code = Total 6.9 6.4-8.4 Protein) [facility] DallasBzbdvpaTBPAPFDULK4807-89-58 18:46:00 Test Item Value Reference Range Interpretation Comments Eosinophils (test code = 4.2 See_Comment [A utomated message] The Eosinophils) system which ge nerated this result tra nsmitted reference range : <=4.0. The reference r mitra was not used to int erpret this result as normal/abnormal . [facility] DallasAjrctfhOIEKPKBOIR8191-77-15 18:46:00 Test Item Value Reference Range Interpretation Comments Segs (test code = Segs) 56.4 45.0-75.0 [facility] DallasNopfnsaAFIEQJMFLW8684-50-85 18:46:00 Test Item Value Reference Range Interpretation Comments Monocytes (test code = Monocytes) 10.3 2.0-12.0 [facility] DallasXvhglvnDAKOLPELPY0365-48-39 18:46:00 Test Item Value Reference Range Interpretation Comments Lymphocytes (test code = Lymphocytes) 28.0 20.0-40.0 [facility] DallasOfjiulpJDFJCAZHHI7612-49-19 18:46:00 Test Item Value Reference Range Interpretation Comments Monocytes # (test code 0.5 See_Comment [Aut omated message] The = Monocytes #) system which generated this result tra nsmitted reference range : <=0.8. The reference r mitra was not used to int erpret this result as normal/abnormal . [facility] DallasWulxantRLFQOEYYOC4024-55-32 18:46:00 Test Item Value Reference Range Interpretation Comments Basophils (test code = 1.1 See_Comment [Aut omated message] The Basophils) system which ge nerated this result tra nsmitted reference range : <=1.0. The reference r mitra was not used to int erpret this result as normal/abnormal . [facility] DallasKohuazuQRGTDJTCPO9173-57-31 18:46:00 Test Item Value Reference Range Interpretation Comments Lymphocytes # (test code = Lymphocytes 1.5 1.0-5.5 #) [facility] DallasLmjpvrcQMMGPNNNAL5848-54-88 18:46:00 Test Item Value Reference Range Interpretation Comments Segs-Bands # (test code = Segs-Bands #) 2.9 1.5-8.1 [facility] DallasBkatyccENSNVUNYUN5111-08-05 18:46:00 Test Item Value Reference Range Interpretation Comments Eosinophils # (test code 0.2 See_Comment [A utomated message] The = Eosinophils #) system whic h generated this result tra nsmitted reference range : <=0.5. The reference r mitra was not used to int erpret this result as normal/abnormal . [facility] DallasFgtvldhNRWLCEEOBE0729-11-01 18:46:00 Test Item Value Reference Range Interpretation Comments Basophils # (test code 0.1 See_Comment [Aut omated message] The = Basophils #) system which generated this result tra nsmitted reference range : <=0.2. The reference r mitra was not used to int erpret this result as normal/abnormal . [facility] DallasEwilwoaRCGMHNNKAM3077-80-21 18:46:00 Test Item Value Reference Range Interpretation Comments PT (test code = PT) 11.2 s 12.0-14.7 [facility] DallasUodrwvxVAUMZOFUIS6333-44-55 18:46:00 Test Item Value Reference Range Interpretation Comments INR (test code = INR) 0.82 0.85-1.17 [facility] DallasVscioepTIFUMTQKNZ6043-86-59 18:46:00 Test Item Value Reference Range Interpretation Comments PTT (test code = PTT) 28.6 s 22.9-35.8 [facility] DallasCinmgerUTRKRXFKAD0450-99-56 18:46:00 Test Item Value Reference Range Interpretation Comments MPV (test code = MPV) 8.1 7.4-10.4 [facility] DallasOvjgysbZGJFRIGEKM3845-56-00 18:46:00 Test Item Value Reference Range Interpretation Comments Platelet (test code = Platelet) 301 133-450 [facility] DallasDjynzfwEYQDOZDNEV1332-77-89 18:46:00 Test Item Value Reference Range Interpretation Comments RDW (test code = RDW) 14.5 11.5-14.5 [facility] [place]zodkloKYIDTSTFWP4781-11-99 18:46:00 Test Item Value Reference Range Interpretation Comments RBC (test code = RBC) 4.84 4.70-6.10 [facility]omCAPWGLUVTX0509-19-96 18:46:00 Test Item Value Reference Range Interpretation Comments Hgb (test code = Hgb) 14.4 14.0-18.0 [facility]QtqkplkKXJVYRXKIT6655-61-02 18:46:00 Test Item Value Reference Range Interpretation Comments WBC (test code = WBC) 5.2 3.7-10.4 [facility]MgpwrqdIDWHVLFYRW4108-18-01 18:46:00 Test Item Value Reference Range Interpretation Comments MCH (test code = MCH) 29.8 pg 27.0-31.0 [facility] DallasVxusrgxTRMSDHIUJX1615-06-73 18:46:00 Test Item Value Reference Range Interpretation Comments MCV (test code = MCV) 92.0 80.0-94.0 [facility] DallasCahzvkjNIOOCOGGAN6610-34-97 18:46:00 Test Item Value Reference Range Interpretation Comments Hct (test code = Hct) 44.5 42.0-54.0 [facility] DallasSsghqwdCRRLCCHAQT0138-18-71 18:46:00 Test Item Value Reference Range Interpretation Comments MCHC (test code = MCHC) 32.4 32.0-36.0 [facility]landsUwyozlcTQWZUDUNQK5837-33-64 18:46:00 Test Item Value Reference Range Interpretation Comments [place]-Hep C Ab (test Negative *NA*(07/22/14 code = [place]-Hep C 1:46 PM) Ab) [facility] AND [id number] 18:46:00 Test Item Value Reference Range Interpretation Comments UA Urobilinogen (test code = UA <=1.0 mg/dL 0.1-1.0 Urobilinogen) [facility] AND [id number] 18:46:00 Test Item Value Reference Range Interpretation Comments UA Sq Epi (test code = UA Sq Epi) None Seen [facility] AND [id number] 18:46:00 Test Item Value Reference Range Interpretation Comments UA Leuk Est (test Negative (07/22/14 1:46 code = UA Leuk Est) PM) [facility] AND [id number] 18:46:00 Test Item Value Reference Range Interpretation Comments UA Nitrite (test code Negative (07/22/14 1:46 = UA Nitrite) PM) [facility] AND [id number] 18:46:00 Test Item Value Reference Range Interpretation Comments UA Blood (test code = Negative (07/22/14 1:46 UA Blood) PM) [facility] AND [id number] 18:46:00 Test Item Value Reference Range Interpretation Comments UA Ketones (test code = UA Negative mg/dL Ketones) [facility] AND [id number] 18:46:00 Test Item Value Reference Range Interpretation Comments UA Bili (test code = Negative *NA*(07/22/14 UA Bili) 1:46 PM) [facility] AND [id number] 18:46:00 Test Item Value Reference Range Interpretation Comments UA Bacteria (test code = UA Occasional /HPF Bacteria) [facility] AND [id number] 18:46:00 Test Item Value Reference Range Interpretation Comments UA RBC (test code = no gt See_Comment [Automa elizabeth message] The UA RBC) system which ge nerated this result transmit elizabeth reference range : <=2. The reference range was not used to interpr et this result as margaret l/abnormal. [facility] AND [id number] 18:46:00 Test Item Value Reference Range Interpretation Comments UA WBC (test code = 1 See_Comment [Automa elizabeth message] The UA WBC) system which ge nerated this result transmit elizabeth reference range : <=5. The reference range was not used to interpr et this result as margaret l/abnormal. [facility] AND [id number] 18:46:00 Test Item Value Reference Range Interpretation Comments UA Glucose (test code = UA Glucose) 30 mg/dL [facility] AND [id number] 18:46:00 Test Item Value Reference Range Interpretation Comments UA Protein (test code = UA Negative mg/dL Protein) [facility] AND [id number] 18:46:00 Test Item Value Reference Range Interpretation Comments UA pH (test code = UA pH) 6.5 5.0-8.0 [facility] AND [id number] 18:46:00 Test Item Value Reference Range Interpretation Comments UA Turbidity (test code = Clear (07/22/14 1:46 UA Turbidity) PM) [facility] AND [id number] 18:46:00 Test Item Value Reference Range Interpretation Comments UA Spec Grav (test code = UA Spec Grav) 1.010 [facility] AND [id number] 18:46:00 Test Item Value Reference Range Interpretation Comments UA Color (test code = Light Yellow UA Color) *NA*(07/22/14 1:46 PM) [facility] [id number] 18:46:00 Test Item Value Reference Range Interpretation Comments Magnesium Lvl (test code = Magnesium 1.8 1.8-2.4 Lvl) [facility]YmyojkuPOJBWZETHIBZ8965-73-80 18:46:00 Test Item Value Reference Range Interpretation Comments AGAP (test code = AGAP) 13.2 10.0-20.0 [facility]UegkqjhXLIBJIPZPKIT4947-53-03 18:46:00 Test Item Value Reference Range Interpretation Comments B/C Ratio (test code = B/C Ratio) 18 6-25 [facility] HospitalPougwtaNNNJPBHIHHEF3151-09-68 18:46:00 Test Item Value Reference Range Interpretation Comments A/G Ratio (test code = A/G Ratio) 1.1 0.7-1.6 [facility] HospitalFaemellCKMOKFDEQQUM4273-89-01 18:46:00 Test Item Value Reference Range Interpretation Comments Globulin (test code = Globulin) 3.3 2.0-4.0 [facility] HospitalRjzoizzDHAETWKVSZSC5522-28-47 18:46:00 Test Item Value Reference Range Interpretation Comments eGFR (test code = eGFR) 99 [facility] HospitalVfayijyXYKWNFXKMCDM5247-90-22 18:46:00 Test Item Value Reference Range Interpretation Comments Calcium Lvl (test code = Calcium Lvl) 9.0 8.5-10.5 [facility] HospitalDkikhgdDATXMNIFRXBI1123-28-33 18:46:00 Test Item Value Reference Range Interpretation Comments Chloride Lvl (test code = Chloride Lvl) 106 95-109 [facility] HospitalFfeuatlYIJOBBEXXXBX5387-47-76 18:46:00 Test Item Value Reference Range Interpretation Comments Creatinine Lvl (test code = Creatinine 0.9 0.5-1.4 Lvl) [facility] HospitalIqeytbmEVTFUEQTRSLD5035-33-10 18:46:00 Test Item Value Reference Range Interpretation Comments Potassium Lvl (test code = Potassium 4.2 3.5-5.1 Lvl) [facility] HospitalWcnamizYNRYWERXMYSQ5125-64-52 18:46:00 Test Item Value Reference Range Interpretation Comments Sodium Lvl (test code = Sodium Lvl) 139 135-145 [facility] HospitalMfycjcbOUJMDHFZPHBI4385-24-10 18:46:00 Test Item Value Reference Range Interpretation Comments CO2 (test code = CO2) 24 24-32 [facility] HospitalUxfbfzmHYTKSEPOYEFZ4261-76-84 18:46:00 Test Item Value Reference Range Interpretation Comments BUN (test code = BUN) 16 7-22 [facility] HospitalWgdfwzaGSUWDAGYDTCR3021-50-79 18:46:00 Test Item Value Reference Range Interpretation Comments Glucose Lvl (test code = Glucose Lvl) 141 70-99 [facility] HospitalTczramgUEZABEKEOBEG0599-11-41 18:46:00 Test Item Value Reference Range Interpretation Comments Albumin Lvl (test code = Albumin Lvl) 3.6 3.5-5.0 [facility] HospitalNcrfyyuMSYVIPSOAZKB8302-11-17 18:46:00 Test Item Value Reference Range Interpretation Comments Alk Phos (test code = Alk Phos) 65 39-136 [facility] HospitalKgkyirvIJKZTNEEYJYF4545-72-03 18:46:00 Test Item Value Reference Range Interpretation Comments Bili Total (test code = Bili Total) 0.3 0.2-1.3 [facility] HospitalHidibxaEGIEFCEPQKUH5655-10-67 18:46:00 Test Item Value Reference Range Interpretation Comments ALT (test code = ALT) 100 See_Comment [Auto mated message] The system which ge nerated this result transmit elizabeth reference range : <=65. The reference range was not used to interpr et this result as margaret l/abnormal. [facility] HospitalCgjyefrPQDEKOGCZIVO5438-67-76 18:46:00 Test Item Value Reference Range Interpretation Comments AST (test code = AST) 53 See_Comment [Auto mated message] The system which ge nerated this result transmit elizabeth reference range : <=37. The reference range was not used to interpr et this result as margaret l/abnormal. [facility] HospitalAcifzxvQRRAZJHEKODV7890-73-61 18:46:00 Test Item Value Reference Range Interpretation Comments Total Protein (test code = Total 6.9 6.4-8.4 Protein) [facility]landsSbgyndjKSBXYAMMKF8806-06-74 18:46:00 Test Item Value Reference Range Interpretation Comments Eosinophils (test code = 4.2 See_Comment [A utomated message] The Eosinophils) system which ge nerated this result tra nsmitted reference range : <=4.0. The reference r mitra was not used to int erpret this result as normal/abnormal . [facility] DallasJobqshlCCLUBAELPT6351-64-06 18:46:00 Test Item Value Reference Range Interpretation Comments Segs (test code = Segs) 56.4 45.0-75.0 [facility] DallasYoxwecoCVDITEVLBG6905-90-05 18:46:00 Test Item Value Reference Range Interpretation Comments Monocytes (test code = Monocytes) 10.3 2.0-12.0 [facility] DallasYlivflfTSBYEYQRVU2104-35-41 18:46:00 Test Item Value Reference Range Interpretation Comments Lymphocytes (test code = Lymphocytes) 28.0 20.0-40.0 [facility] DallasIizjvaaISTDMDCNIO7033-73-45 18:46:00 Test Item Value Reference Range Interpretation Comments Monocytes # (test code 0.5 See_Comment [Aut omated message] The = Monocytes #) system which generated this result tra nsmitted reference range : <=0.8. The reference r mitra was not used to int erpret this result as normal/abnormal . [facility] DallasLnbqoelPJXQOLXFRX5763-48-00 18:46:00 Test Item Value Reference Range Interpretation Comments Basophils (test code = 1.1 See_Comment [Aut omated message] The Basophils) system which ge nerated this result tra nsmitted reference range : <=1.0. The reference r mitra was not used to int erpret this result as normal/abnormal . [facility] DallasBxpbsekMKAVNHRTSE5717-13-47 18:46:00 Test Item Value Reference Range Interpretation Comments Lymphocytes # (test code = Lymphocytes 1.5 1.0-5.5 #) [facility] DallasPpujpmwRGOCUBILFF3276-90-62 18:46:00 Test Item Value Reference Range Interpretation Comments Segs-Bands # (test code = Segs-Bands #) 2.9 1.5-8.1 [facility] DallasHxuqzbvYYFTOIZPPR1435-31-96 18:46:00 Test Item Value Reference Range Interpretation Comments Eosinophils # (test code 0.2 See_Comment [A utomated message] The = Eosinophils #) system [facility] h generated this result tra nsmitted reference range : <=0.5. The reference r mitra was not used to int erpret this result as normal/abnormal . [facility] DallasOollrteJZHJWOBLFA4863-26-87 18:46:00 Test Item Value Reference Range Interpretation Comments Basophils # (test code 0.1 See_Comment [Aut omated message] The = Basophils #) system which generated this result tra nsmitted reference range : <=0.2. The reference r mitra was not used to int erpret this result as normal/abnormal . [facility] DallasGujttmgRSFITVXFFE7363-18-99 18:46:00 Test Item Value Reference Range Interpretation Comments PT (test code = PT) 11.2 s 12.0-14.7 [facility] DallasKoefewbNVIMBTPWGC0604-10-13 18:46:00 Test Item Value Reference Range Interpretation Comments INR (test code = INR) 0.82 0.85-1.17 [facility] DallasNawjwjmSLKSBFSTLS9731-12-25 18:46:00 Test Item Value Reference Range Interpretation Comments PTT (test code = PTT) 28.6 s 22.9-35.8 [facility] DallasBmnumphSRBZURUXHJ3968-22-05 18:46:00 Test Item Value Reference Range Interpretation Comments MPV (test code = MPV) 8.1 7.4-10.4 [facility] DallasWtofyheCZGMVTOYKK9381-60-25 18:46:00 Test Item Value Reference Range Interpretation Comments Platelet (test code = Platelet) 301 133-450 [facility] DallasNutxbkiPBHFYVPEPN4322-84-57 18:46:00 Test Item Value Reference Range Interpretation Comments RDW (test code = RDW) 14.5 11.5-14.5 [facility] DallasNvakkdbJRTRYOSUUK3386-85-27 18:46:00 Test Item Value Reference Range Interpretation Comments RBC (test code = RBC) 4.84 4.70-6.10 [facility] DallasWeqoobwCDVHUTJLXT8249-30-51 18:46:00 Test Item Value Reference Range Interpretation Comments Hgb (test code = Hgb) 14.4 14.0-18.0 [facility] DallasJearvcrBAREOOMZRH2362-02-78 18:46:00 Test Item Value Reference Range Interpretation Comments WBC (test code = WBC) 5.2 3.7-10.4 [facility] DallasXgdjafqIOAYIAXLOV3709-73-56 18:46:00 Test Item Value Reference Range Interpretation Comments MCH (test code = MCH) 29.8 pg 27.0-31.0 [facility]landsCqbautpNGACIWNOPH0269-66-42 18:46:00 Test Item Value Reference Range Interpretation Comments MCV (test code = MCV) 92.0 80.0-94.0 [facility]landsZslmowwPIISPNTFLK9192-56-69 18:46:00 Test Item Value Reference Range Interpretation Comments Hct (test code = Hct) 44.5 42.0-54.0 [facility]landsUnzfsqyIISABZPGWF0560-32-04 18:46:00 Test Item Value Reference Range Interpretation Comments MCHC (test code = MCHC) 32.4 32.0-36.0 [facility]landsCfuzaduDYTTQPBIEK1631-68-20 18:46:00 Test Item Value Reference Range Interpretation Comments [place]-Hep C Ab (test Negative *NA*(07/22/14 code = [place]-Hep C 1:46 PM) Ab) [facility] AND [id number] 18:46:00 Test Item Value Reference Range Interpretation Comments UA Urobilinogen (test code = UA <=1.0 mg/dL 0.1-1.0 Urobilinogen) [facility] AND [id number] 18:46:00 Test Item Value Reference Range Interpretation Comments UA Sq Epi (test code = UA Sq Epi) None Seen [facility] AND [id number] 18:46:00 Test Item Value Reference Range Interpretation Comments UA Leuk Est (test Negative (07/22/14 1:46 code = UA Leuk Est) PM) [facility] AND [id number] 18:46:00 Test Item Value Reference Range Interpretation Comments UA Nitrite (test code Negative (07/22/14 1:46 = UA Nitrite) PM) [facility] AND [id number] 18:46:00 Test Item Value Reference Range Interpretation Comments UA Blood (test code = Negative (07/22/14 1:46 UA Blood) PM) [facility] AND [id number] 18:46:00 Test Item Value Reference Range Interpretation Comments UA Ketones (test code = UA Negative mg/dL Ketones) [facility] AND [id number] 18:46:00 Test Item Value Reference Range Interpretation Comments UA Bili (test code = Negative *NA*(07/22/14 UA Bili) 1:46 PM) [facility] [id number] 18:46:00 Test Item Value Reference Range Interpretation Comments UA Bacteria (test code = UA Occasional /HPF Bacteria) [facility] [id number] 18:46:00 Test Item Value Reference Range Interpretation Comments UA RBC (test code = no gt See_Comment [Automa elizabeth message] The UA RBC) system which ge nerated this result transmit elizabeht reference range : <=2. The reference range was not used to interpr et this result as margaret l/abnormal. [facility] [id number] 18:46:00 Test Item Value Reference Range Interpretation Comments UA WBC (test code = 1 See_Comment [Automa elizabeth message] The UA WBC) system which ge nerated this result transmit elizabeth reference range : <=5. The reference range was not used to interpr et this result as margaret l/abnormal. [facility] [id number] 18:46:00 Test Item Value Reference Range Interpretation Comments UA Glucose (test code = UA Glucose) 30 mg/dL [facility] [id number] 18:46:00 Test Item Value Reference Range Interpretation Comments UA Protein (test code = UA Negative mg/dL Protein) [facility] [id number] 18:46:00 Test Item Value Reference Range Interpretation Comments UA pH (test code = UA pH) 6.5 5.0-8.0 [facility] [id number] 18:46:00 Test Item Value Reference Range Interpretation Comments UA Turbidity (test code = Clear (07/22/14 1:46 UA Turbidity) PM) [facility] [id number] 18:46:00 Test Item Value Reference Range Interpretation Comments UA Spec Grav (test code = UA Spec Grav) 1.010 [facility] [id number] 18:46:00 Test Item Value Reference Range Interpretation Comments UA Color (test code = Light Yellow UA Color) *NA*(07/22/14 1:46 PM) [facility]CHE[facility] [id number] 18:46:00 Test Item Value Reference Range Interpretation Comments Magnesium Lvl (test code = Magnesium 1.8 1.8-2.4 Lvl) [facility] LildclrPOLQXTOILLHA2709-41-73 18:46:00 Test Item Value Reference Range Interpretation Comments AGAP (test code = AGAP) 13.2 10.0-20.0 [facility] HospitalHigyvcjTFCWIADUWNNJ7359-93-90 18:46:00 Test Item Value Reference Range Interpretation Comments B/C Ratio (test code = B/C Ratio) 18 6-25 [facility] HospitalAtonixyIHOUWPNSMFIQ6036-36-33 18:46:00 Test Item Value Reference Range Interpretation Comments A/G Ratio (test code = A/G Ratio) 1.1 0.7-1.6 [facility] HospitalKuadkguYACGMVYYAZAU8375-39-91 18:46:00 Test Item Value Reference Range Interpretation Comments Globulin (test code = Globulin) 3.3 2.0-4.0 [facility] HospitalPsurjihIWXNFMVAKMPA2993-24-28 18:46:00 Test Item Value Reference Range Interpretation Comments eGFR (test code = eGFR) 99 [facility] HospitalFkgsppiVURBRJPDCCOG3801-46-38 18:46:00 Test Item Value Reference Range Interpretation Comments Calcium Lvl (test code = Calcium Lvl) 9.0 8.5-10.5 [facility] HospitalMligwlkXAIOIVNPATPS8115-69-56 18:46:00 Test Item Value Reference Range Interpretation Comments Chloride Lvl (test code = Chloride Lvl) 106 95-109 [facility] HospitalNvlixmxZZVMZMVCRVVO1284-04-33 18:46:00 Test Item Value Reference Range Interpretation Comments Creatinine Lvl (test code = Creatinine 0.9 0.5-1.4 Lvl) [facility] HospitalRdqlsrdRPLGVFQXPQQJ7120-44-04 18:46:00 Test Item Value Reference Range Interpretation Comments Potassium Lvl (test code = Potassium 4.2 3.5-5.1 Lvl) [facility] HospitalHjcawkyJNMHJTFUOLTT3891-42-25 18:46:00 Test Item Value Reference Range Interpretation Comments Sodium Lvl (test code = Sodium Lvl) 139 135-145 [facility] HospitalDnewtmxQNLOAMHBXOXB6360-77-41 18:46:00 Test Item Value Reference Range Interpretation Comments CO2 (test code = CO2) 24 24-32 [facility] HospitalPnpapbfYBUZMFRXFRBC2098-44-51 18:46:00 Test Item Value Reference Range Interpretation Comments BUN (test code = BUN) 16 7-22 [facility] HospitalOuqhbjsTZNOGWIMXSCQ9338-62-65 18:46:00 Test Item Value Reference Range Interpretation Comments Glucose Lvl (test code = Glucose Lvl) 141 70-99 [facility] HospitalRtugmfjFKFZTQGOOCML8316-95-06 18:46:00 Test Item Value Reference Range Interpretation Comments Albumin Lvl (test code = Albumin Lvl) 3.6 3.5-5.0 [facility] HospitalEajvggwUWHSBCPQKLMV9509-27-76 18:46:00 Test Item Value Reference Range Interpretation Comments Alk Phos (test code = Alk Phos) 65 39-136 [facility] HospitalZcazvrhSJSRUAYWOCLW9493-70-91 18:46:00 Test Item Value Reference Range Interpretation Comments Bili Total (test code = Bili Total) 0.3 0.2-1.3 [facility] HospitalMsocyomTYVGXLPFQEBU7356-86-92 18:46:00 Test Item Value Reference Range Interpretation Comments ALT (test code = ALT) 100 See_Comment [Auto mated message] The system which ge nerated this result transmit elizabeth reference range : <=65. The reference range was not used to interpr et this result as margaret l/abnormal. [facility] HospitalRptaqrtZRSKDXZKPLRC9651-35-46 18:46:00 Test Item Value Reference Range Interpretation Comments AST (test code = AST) 53 See_Comment [Auto mated message] The system which ge nerated this result transmit elizabeth reference range : <=37. The reference range was not used to interpr et this result as margaret l/abnormal. [facility] HospitalMzaxujaJPJASTEQQYXS2599-88-44 18:46:00 Test Item Value Reference Range Interpretation Comments Total Protein (test code = Total 6.9 6.4-8.4 Protein) [facility] DallasVxmeqanOVZQTLYMGD5445-68-02 18:46:00 Test Item Value Reference Range Interpretation Comments Eosinophils (test code = 4.2 See_Comment [A utomated message] The Eosinophils) system which ge nerated this result tra nsmitted reference range : <=4.0. The reference r mitra was not used to int erpret this result as normal/abnormal . [facility] DallasWdpqxwbJEVITIRSTX2995-01-66 18:46:00 Test Item Value Reference Range Interpretation Comments Segs (test code = Segs) 56.4 45.0-75.0 [facility] DallasCxnunguHOWMNJDRJW9857-65-96 18:46:00 Test Item Value Reference Range Interpretation Comments Monocytes (test code = Monocytes) 10.3 2.0-12.0 [facility] DallasWztpktpPEXNGOVZDP3952-68-17 18:46:00 Test Item Value Reference Range Interpretation Comments Lymphocytes (test code = Lymphocytes) 28.0 20.0-40.0 [facility] DallasAtkwtpnDGGSUCTJCY7116-06-66 18:46:00 Test Item Value Reference Range Interpretation Comments Monocytes # (test code 0.5 See_Comment [Aut omated message] The = Monocytes #) system which generated this result tra nsmitted reference range : <=0.8. The reference r mitra was not used to int erpret this result as normal/abnormal . [facility] DallasShhoyyiJKMLBWENXH1336-69-60 18:46:00 Test Item Value Reference Range Interpretation Comments Basophils (test code = 1.1 See_Comment [Aut omated message] The Basophils) system which ge nerated this result tra nsmitted reference range : <=1.0. The reference r mitra was not used to int erpret this result as normal/abnormal . [facility] DallasVobiewnCHAVCMUJHP4131-69-64 18:46:00 Test Item Value Reference Range Interpretation Comments Lymphocytes # (test code = Lymphocytes 1.5 1.0-5.5 #) [facility] DallasEawocssHTDGPCGLDJ0699-67-25 18:46:00 Test Item Value Reference Range Interpretation Comments Segs-Bands # (test code = Segs-Bands #) 2.9 1.5-8.1 [facility] DallasDzrpbccGVCHGXYGSQ5897-78-95 18:46:00 Test Item Value Reference Range Interpretation Comments Eosinophils # (test code 0.2 See_Comment [A utomated message] The = Eosinophils #) system whic h generated this result tra nsmitted reference range : <=0.5. The reference r mitra was not used to int erpret this result as normal/abnormal . [facility] DallasVqtnanhGAHIMFIYDL4854-20-22 18:46:00 Test Item Value Reference Range Interpretation Comments Basophils # (test code 0.1 See_Comment [Aut omated message] The = Basophils #) system which generated this result tra nsmitted reference range : <=0.2. The reference r mitra was not used to int erpret this result as normal/abnormal . [facility] DallasBzfmfdvODSTYZTDUU5986-68-56 18:46:00 Test Item Value Reference Range Interpretation Comments PT (test code = PT) 11.2 s 12.0-14.7 [place] [id number] 18:46:00 Test Item Value Reference Range Interpretation Comments INR (test code = INR) 0.82 0.85-1.17 [facility] DallasYabaqbeVUTHTYASAG4712-42-94 18:46:00 Test Item Value Reference Range Interpretation Comments PTT (test code = PTT) 28.6 s 22.9-35.8 [facility] DallasXqzncqoOSOJANKOZK2665-88-06 18:46:00 Test Item Value Reference Range Interpretation Comments MPV (test code = MPV) 8.1 7.4-10.4 [facility] DallasIpnatvmDCDGFBFDCN5304-21-15 18:46:00 Test Item Value Reference Range Interpretation Comments Platelet (test code = Platelet) 301 133-450 [facility] DallasUqhnuqiITUSBYRAWG9986-23-57 18:46:00 Test Item Value Reference Range Interpretation Comments RDW (test code = RDW) 14.5 11.5-14.5 [facility] DallasOrxbwonMOEKJDFKWF0953-42-74 18:46:00 Test Item Value Reference Range Interpretation Comments RBC (test code = RBC) 4.84 4.70-6.10 [facility] DallasXptrwlkBAJCKHRRHZ4634-36-72 18:46:00 Test Item Value Reference Range Interpretation Comments Hgb (test code = Hgb) 14.4 14.0-18.0 [facility] DallasFrmbybrKJPYFRQUVA4598-22-06 18:46:00 Test Item Value Reference Range Interpretation Comments WBC (test code = WBC) 5.2 3.7-10.4 [facility] DallasErhywqgIVCTTJGKLH2842-92-29 18:46:00 Test Item Value Reference Range Interpretation Comments MCH (test code = MCH) 29.8 pg 27.0-31.0 [facility] DallasSbcgwgjXGKRYEOJOR6115-96-61 18:46:00 Test Item Value Reference Range Interpretation Comments MCV (test code = MCV) 92.0 80.0-94.0 [facility]EisekrdPDLRCVIVMD9890-30-91 18:46:00 Test Item Value Reference Range Interpretation Comments Hct (test code = Hct) 44.5 42.0-54.0 [facility] DallasLeezbhzEHQUVOVRIY0678-93-16 18:46:00 Test Item Value Reference Range Interpretation Comments MCHC (test code = MCHC) 32.4 32.0-36.0 [facility]QAUTXCRSIB1068-40-62 18:46:00 Test Item Value Reference Range Interpretation Comments [place]-Hep C Ab (test Negative *NA*(07/22/14 code = [place]-Hep C 1:46 PM) Ab) [facility] AND [id number] 18:46:00 Test Item Value Reference Range Interpretation Comments UA Urobilinogen (test code = UA <=1.0 mg/dL 0.1-1.0 Urobilinogen) [facility] AND [id number] 18:46:00 Test Item Value Reference Range Interpretation Comments UA Sq Epi (test code = UA Sq Epi) None Seen [facility] AND [id number] 18:46:00 Test Item Value Reference Range Interpretation Comments UA Leuk Est (test Negative (07/22/14 1:46 code = UA Leuk Est) PM) [facility] AND [id number] 18:46:00 Test Item Value Reference Range Interpretation Comments UA Nitrite (test code Negative (07/22/14 1:46 = UA Nitrite) PM) [facility] AND [id number] 18:46:00 Test Item Value Reference Range Interpretation Comments UA Blood (test code = Negative (07/22/14 1:46 UA Blood) PM) [facility] AND [id number] 18:46:00 Test Item Value Reference Range Interpretation Comments UA Ketones (test code = UA Negative mg/dL Ketones) [facility] AND [id number] 18:46:00 Test Item Value Reference Range Interpretation Comments UA Bili (test code = Negative *NA*(07/22/14 UA Bili) 1:46 PM) [facility] AND [id number] 18:46:00 Test Item Value Reference Range Interpretation Comments UA Bacteria (test code = UA Occasional /HPF Bacteria) [facility] AND [id number] 18:46:00 Test Item Value Reference Range Interpretation Comments UA RBC (test code = no gt See_Comment [Automa elizabeth message] The UA RBC) system which ge nerated this result transmit elizabeth reference range : <=2. The reference range was not used to interpr et this result as margaret l/abnormal. [facility] AND [id number] 18:46:00 Test Item Value Reference Range Interpretation Comments UA WBC (test code = 1 See_Comment [Automa elizabeth message] The UA WBC) system which ge nerated this result transmit elizabeth reference range : <=5. The reference range was not used to interpr et this result as margaret l/abnormal. [facility] AND [id number] 18:46:00 Test Item Value Reference Range Interpretation Comments UA Glucose (test code = UA Glucose) 30 mg/dL [facility] AND [id number] 18:46:00 Test Item Value Reference Range Interpretation Comments UA Protein (test code = UA Negative mg/dL Protein) [facility] AND [id number] 18:46:00 Test Item Value Reference Range Interpretation Comments UA pH (test code = UA pH) 6.5 5.0-8.0 [facility] AND [id number] 18:46:00 Test Item Value Reference Range Interpretation Comments UA Turbidity (test code = Clear (07/22/14 1:46 UA Turbidity) PM) [facility] AND [id number] 18:46:00 Test Item Value Reference Range Interpretation Comments UA Spec Grav (test code = UA Spec Grav) 1.010 [facility] AND [id number] 18:46:00 Test Item Value Reference Range Interpretation Comments UA Color (test code = Light Yellow UA Color) *NA*(07/22/14 1:46 PM) [facility] [id number] 18:46:00 Test Item Value Reference Range Interpretation Comments Magnesium Lvl (test code = Magnesium 1.8 1.8-2.4 Lvl) [facility]LpicpvqDUZKKYZEYANP6836-09-63 18:46:00 Test Item Value Reference Range Interpretation Comments AGAP (test code = AGAP) 13.2 10.0-20.0 [facility]PoesoecWZQYJMEXXHBS1868-20-84 18:46:00 Test Item Value Reference Range Interpretation Comments B/C Ratio (test code = B/C Ratio) 18 6-25 [facility] HospitalYhuydbjMSDQQLADNLCQ7717-24-54 18:46:00 Test Item Value Reference Range Interpretation Comments A/G Ratio (test code = A/G Ratio) 1.1 0.7-1.6 [facility] HospitalRwcztfhICJGOEAGHFLQ5899-62-29 18:46:00 Test Item Value Reference Range Interpretation Comments Globulin (test code = Globulin) 3.3 2.0-4.0 [facility] HospitalYlndojuIOXAJXVDSUHU7991-59-43 18:46:00 Test Item Value Reference Range Interpretation Comments eGFR (test code = eGFR) 99 [facility] HospitalXxwnloyZHMTOVVEGBQH6773-76-81 18:46:00 Test Item Value Reference Range Interpretation Comments Calcium Lvl (test code = Calcium Lvl) 9.0 8.5-10.5 [facility] HospitalAyxwzdwJVJJHTMZRVRV1814-11-07 18:46:00 Test Item Value Reference Range Interpretation Comments Chloride Lvl (test code = Chloride Lvl) 106 95-109 [facility] HospitalCxaftfbIKZHKGAMKBFK8378-29-15 18:46:00 Test Item Value Reference Range Interpretation Comments Creatinine Lvl (test code = Creatinine 0.9 0.5-1.4 Lvl) [facility] HospitalSujjlyjXWDUDPGTRPBX7882-24-92 18:46:00 Test Item Value Reference Range Interpretation Comments Potassium Lvl (test code = Potassium 4.2 3.5-5.1 Lvl) [facility] HospitalXuhzdvtTABSUXKLKXZR8509-30-77 18:46:00 Test Item Value Reference Range Interpretation Comments Sodium Lvl (test code = Sodium Lvl) 139 135-145 [facility] HospitalPhauzckGFVIXNSYAZYC8059-92-94 18:46:00 Test Item Value Reference Range Interpretation Comments CO2 (test code = CO2) 24 24-32 [facility] HospitalXyhxsmtNEAAWOHMWXWT1073-41-46 18:46:00 Test Item Value Reference Range Interpretation Comments BUN (test code = BUN) 16 7-22 [facility] HospitalQsufbczLCYZOCXZZDPZ2442-55-16 18:46:00 Test Item Value Reference Range Interpretation Comments Glucose Lvl (test code = Glucose Lvl) 141 70-99 [facility] HospitalHdxggpsQOJCQWKIPTHC5004-03-38 18:46:00 Test Item Value Reference Range Interpretation Comments Albumin Lvl (test code = Albumin Lvl) 3.6 3.5-5.0 [facility] HospitalQxxypezYEXBNZDBGWNK1508-38-59 18:46:00 Test Item Value Reference Range Interpretation Comments Alk Phos (test code = Alk Phos) 65 39-136 [facility] HospitalNsyxgniKSSZSYYTEOXF9837-71-61 18:46:00 Test Item Value Reference Range Interpretation Comments Bili Total (test code = Bili Total) 0.3 0.2-1.3 [facility] HospitalSgkwegtWGIKIQXTSUQE2529-95-54 18:46:00 Test Item Value Reference Range Interpretation Comments ALT (test code = ALT) 100 See_Comment [Auto mated message] The system which ge nerated this result transmit elizabeth reference range : <=65. The reference range was not used to interpr et this result as margaret l/abnormal. [facility] HospitalAexbaaqLIBUAAJSXGEQ7236-40-67 18:46:00 Test Item Value Reference Range Interpretation Comments AST (test code = AST) 53 See_Comment [Auto mated message] The system which ge nerated this result transmit elizabeth reference range : <=37. The reference range was not used to interpr et this result as margaret l/abnormal. [facility] HospitalTfuqitsBARWCZMQWCSI5745-20-58 18:46:00 Test Item Value Reference Range Interpretation Comments Total Protein (test code = Total 6.9 6.4-8.4 Protein) [facility] DallasVznqsqrJBYSGGCDLE4704-69-72 18:46:00 Test Item Value Reference Range Interpretation Comments Eosinophils (test code = 4.2 See_Comment [A utomated message] The Eosinophils) system which ge nerated this result tra nsmitted reference range : <=4.0. The reference r mitra was not used to int erpret this result as normal/abnormal . [facility] DallasBffyktcDNRJHMNVVE3728-81-12 18:46:00 Test Item Value Reference Range Interpretation Comments Segs (test code = Segs) 56.4 45.0-75.0 [facility] DallasMhfatvoTFSICLLENG9634-41-61 18:46:00 Test Item Value Reference Range Interpretation Comments Monocytes (test code = Monocytes) 10.3 2.0-12.0 [facility] DallasUtdvmmvQQTTMZHGEZ0321-31-98 18:46:00 Test Item Value Reference Range Interpretation Comments Lymphocytes (test code = Lymphocytes) 28.0 20.0-40.0 [facility] DallasXhlbiufXIBPCGJCBQ9080-43-46 18:46:00 Test Item Value Reference Range Interpretation Comments Monocytes # (test code 0.5 See_Comment [Aut omated message] The = Monocytes #) system which generated this result tra nsmitted reference range : <=0.8. The reference r mitra was not used to int erpret this result as normal/abnormal . [facility] DallasOauvavoZETWFUJTIG5811-94-21 18:46:00 Test Item Value Reference Range Interpretation Comments Basophils (test code = 1.1 See_Comment [Aut omated message] The Basophils) system which ge nerated this result tra nsmitted reference range : <=1.0. The reference r mitra was not used to int erpret this result as normal/abnormal . [facility] DallasIemxeibZECXSJALCW2708-73-36 18:46:00 Test Item Value Reference Range Interpretation Comments Lymphocytes # (test code = Lymphocytes 1.5 1.0-5.5 #) [facility] DallasXpxtovsFUSVCMJFKE6909-58-38 18:46:00 Test Item Value Reference Range Interpretation Comments Segs-Bands # (test code = Segs-Bands #) 2.9 1.5-8.1 [facility] DallasAvctexnWIHWQKCMTQ7845-07-70 18:46:00 Test Item Value Reference Range Interpretation Comments Eosinophils # (test code 0.2 See_Comment [A utomated message] The = Eosinophils #) system whic h generated this result tra nsmitted reference range : <=0.5. The reference r mitra was not used to int erpret this result as normal/abnormal . [facility] DallasHsnpqvwLBNKYPXOXL1927-71-21 18:46:00 Test Item Value Reference Range Interpretation Comments Basophils # (test code 0.1 See_Comment [Aut omated message] The = Basophils #) system which generated this result tra nsmitted reference range : <=0.2. The reference r mitra was not used to int erpret this result as normal/abnormal . [facility] DallasZpsmvlfCBGKOFGBDW6887-52-90 18:46:00 Test Item Value Reference Range Interpretation Comments PT (test code = PT) 11.2 s 12.0-14.7 [facility] DallasOfoaxanIWUQPOWONC3296-16-24 18:46:00 Test Item Value Reference Range Interpretation Comments INR (test code = INR) 0.82 0.85-1.17 [facility] DallasJvkujcgFUAYEXTUPQ2690-23-68 18:46:00 Test Item Value Reference Range Interpretation Comments PTT (test code = PTT) 28.6 s 22.9-35.8 [facility] DallasUqfwhoiZUNLGPAMVY3495-68-44 18:46:00 Test Item Value Reference Range Interpretation Comments MPV (test code = MPV) 8.1 7.4-10.4 [facility] DallasWhegozwNEKFZJNZZY4161-76-25 18:46:00 Test Item Value Reference Range Interpretation Comments Platelet (test code = Platelet) 301 133450 [facility]WcctyoaSQNAKPBSXE5403-86-18 18:46:00 Test Item Value Reference Range Interpretation Comments RDW (test code = RDW) 14.5 11.5-14.5 [facility] HospitalFxgwrtiGSBSIBDYER9122-03-67 18:46:00 Test Item Value Reference Range Interpretation Comments RBC (test code = RBC) 4.84 4.70-6.10 [facility] HospitalAfsfcraOGJJDZNVYW2137-58-37 18:46:00 Test Item Value Reference Range Interpretation Comments Hgb (test code = Hgb) 14.4 14.0-18.0 [facility] HospitalMuupxpfMPSLGPAIXP8008-68-96 18:46:00 Test Item Value Reference Range Interpretation Comments WBC (test code = WBC) 5.2 3.7-10.4 [facility] DallasBchfkvhUTRFGVFFIT2688-98-83 18:46:00 Test Item Value Reference Range Interpretation Comments MCH (test code = MCH) 29.8 pg 27.0-31.0 [facility] HospitalQscxmdkWLBCHXIQAN7604-34-13 18:46:00 Test Item Value Reference Range Interpretation Comments MCV (test code = MCV) 92.0 80.0-94.0 [facility]landsMkotsbeKXYENKTZUK8883-57-13 18:46:00 Test Item Value Reference Range Interpretation Comments Hct (test code = Hct) 44.5 42.0-54.0 [facility] HospitalRaeejlnEYEYYZSXTV3892-46-58 18:46:00 Test Item Value Reference Range Interpretation Comments MCHC (test code = MCHC) 32.4 32.0-36.0 [facility]landsWdwancoQEVHPUUFJO0258-09-23 18:46:00 Test Item Value Reference Range Interpretation Comments [place]-Hep C Ab (test Negative *NA*(07/22/14 code = [place]-Hep C 1:46 PM) Ab) [facility] [id number] 18:46:00 Test Item Value Reference Range Interpretation Comments UA Urobilinogen (test code = UA <=1.0 mg/dL 0.1-1.0 Urobilinogen) [facility] [id number] 18:46:00 Test Item Value Reference Range Interpretation Comments UA Sq Epi (test code = UA Sq Epi) None [facility] [id number] 18:46:00 Test Item Value Reference Range Interpretation Comments UA Leuk Est (test Negative (07/22/14 1:46 code = UA Leuk Est) PM) [facility] AND [id number] 18:46:00 Test Item Value Reference Range Interpretation Comments UA Nitrite (test code Negative (07/22/14 1:46 = UA Nitrite) PM) [facility] AND [id number] 18:46:00 Test Item Value Reference Range Interpretation Comments UA Blood (test code = Negative (07/22/14 1:46 UA Blood) PM) [facility] AND [id number] 18:46:00 Test Item Value Reference Range Interpretation Comments UA Ketones (test code = UA Negative mg/dL Ketones) [facility] AND [id number] 18:46:00 Test Item Value Reference Range Interpretation Comments UA Bili (test code = Negative *NA*(07/22/14 UA Bili) 1:46 PM) [facility] AND [id number] 18:46:00 Test Item Value Reference Range Interpretation Comments UA Bacteria (test code = UA Occasional /HPF Bacteria) [facility] AND [id number] 18:46:00 Test Item Value Reference Range Interpretation Comments UA RBC (test code = no gt See_Comment [Automa elizabeth message] The UA RBC) system which ge nerated this result transmit elizabeth reference range : <=2. The reference range was not used to interpr et this result as margaret l/abnormal. [facility] AND [id number] 18:46:00 Test Item Value Reference Range Interpretation Comments UA WBC (test code = 1 See_Comment [Automa elizabeth message] The UA WBC) system which ge nerated this result transmit elizabeth reference range : <=5. The reference range was not used to interpr et this result as margaret l/abnormal. [facility] AND [id number] 18:46:00 Test Item Value Reference Range Interpretation Comments UA Glucose (test code = UA Glucose) 30 mg/dL [facility] AND [id number] 18:46:00 Test Item Value Reference Range Interpretation Comments UA Protein (test code = UA Negative mg/dL Protein) [facility] AND [id number] 18:46:00 Test Item Value Reference Range Interpretation Comments UA pH (test code = UA pH) 6.5 5.0-8.0 [facility] [id number] 18:46:00 Test Item Value Reference Range Interpretation Comments UA Turbidity (test code = Clear (07/22/14 1:46 UA Turbidity) PM) [facility] [id number] 18:46:00 Test Item Value Reference Range Interpretation Comments UA Spec Grav (test code = UA Spec Grav) 1.010 [facility] AND [id number] 18:46:00 Test Item Value Reference Range Interpretation Comments UA Color (test code = Light Yellow UA Color) *NA*(07/22/14 1:46 PM) [facility]annCHE[facility] NJJIM0289-21-94 18:46:00 Test Item Value Reference Range Interpretation Comments Magnesium Lvl (test code = Magnesium 1.8 1.8-2.4 Lvl) [facility] HospitalGlngyvaSMEAGCTDZYKI3400-19-46 18:46:00 Test Item Value Reference Range Interpretation Comments AGAP (test code = AGAP) 13.2 10.0-20.0 [facility] HospitalCkodmyqKYZSBQVLEFOH8671-99-77 18:46:00 Test Item Value Reference Range Interpretation Comments B/C Ratio (test code = B/C Ratio) 18 6-25 [facility] HospitalGvybsghJQNGCFGKCRSU5577-49-16 18:46:00 Test Item Value Reference Range Interpretation Comments A/G Ratio (test code = A/G Ratio) 1.1 0.7-1.6 [facility] HospitalAtzjwxuYSBLGGNSOOES2321-02-44 18:46:00 Test Item Value Reference Range Interpretation Comments Globulin (test code = Globulin) 3.3 2.0-4.0 [facility] HospitalShynlitGGDIOYPATXXN9947-96-16 18:46:00 Test Item Value Reference Range Interpretation Comments eGFR (test code = eGFR) 99 [facility] HospitalJzefwgxDDWHFCXAJQXR2693-30-31 18:46:00 Test Item Value Reference Range Interpretation Comments Calcium Lvl (test code = Calcium Lvl) 9.0 8.5-10.5 [facility] HospitalBxgpsldQTOLNKPWUATH1308-08-54 18:46:00 Test Item Value Reference Range Interpretation Comments Chloride Lvl (test code = Chloride Lvl) 106 95-109 [facility] HospitalIfgwdelLNOMZIPIHIHA1975-47-86 18:46:00 Test Item Value Reference Range Interpretation Comments Creatinine Lvl (test code = Creatinine 0.9 0.5-1.4 Lvl) [facility] HospitalUbllpdaIMSFUNYYUOJH2896-99-81 18:46:00 Test Item Value Reference Range Interpretation Comments Potassium Lvl (test code = Potassium 4.2 3.5-5.1 Lvl) [facility] HospitalUkajjivDZBNBQRHTNTJ4605-17-66 18:46:00 Test Item Value Reference Range Interpretation Comments Sodium Lvl (test code = Sodium Lvl) 139 135-145 [facility] HospitalWljpmruMLRJBBSWUYAJ8272-46-76 18:46:00 Test Item Value Reference Range Interpretation Comments CO2 (test code = CO2) 24 24-32 [facility] HospitalHwcnpvjPUXCUQWFCMRZ1423-87-08 18:46:00 Test Item Value Reference Range Interpretation Comments BUN (test code = BUN) 16 7-22 [facility] HospitalFxchkkcUUYMGYHRUHUM2823-78-25 18:46:00 Test Item Value Reference Range Interpretation Comments Glucose Lvl (test code = Glucose Lvl) 141 70-99 [facility] HospitalVkfvkqmMMDHQWYMBVBB5430-42-57 18:46:00 Test Item Value Reference Range Interpretation Comments Albumin Lvl (test code = Albumin Lvl) 3.6 3.5-5.0 [facility] HospitalQxyjgwsYLDYUWOWVFNG4573-48-88 18:46:00 Test Item Value Reference Range Interpretation Comments Alk Phos (test code = Alk Phos) 65 39-136 [facility] HospitalXnbuqggNYHTYUNYGOHU9364-85-99 18:46:00 Test Item Value Reference Range Interpretation Comments Bili Total (test code = Bili Total) 0.3 0.2-1.3 [facility] HospitalHknhmeqRNMHUZATVUXF2109-49-77 18:46:00 Test Item Value Reference Range Interpretation Comments ALT (test code = ALT) 100 See_Comment [Auto mated message] The system which ge nerated this result transmit elizabeth reference range : <=65. The reference range was not used to interpr et this result as margaret l/abnormal. [facility] HospitalKcymdesHTREHVWCXMSV8867-21-16 18:46:00 Test Item Value Reference Range Interpretation Comments AST (test code = AST) 53 See_Comment [Auto mated message] The system which ge nerated this result transmit elizabeth reference range : <=37. The reference range was not used to interpr et this result as margaret l/abnormal. [facility] HospitalVdfkfqgIGINLWDLNVWN4469-17-02 18:46:00 Test Item Value Reference Range Interpretation Comments Total Protein (test code = Total 6.9 6.4-8.4 Protein) [facility] DallasOeardlaIDFGNYUAKM5550-26-41 18:46:00 Test Item Value Reference Range Interpretation Comments Eosinophils (test code = 4.2 See_Comment [A utomated message] The Eosinophils) system which ge nerated this result tra nsmitted reference range : <=4.0. The reference r mitra was not used to int erpret this result as normal/abnormal . [facility] DallasQsygzbiRPNJBASDLF7131-83-85 18:46:00 Test Item Value Reference Range Interpretation Comments Segs (test code = Segs) 56.4 45.0-75.0 [facility] DallasZzgldvvXGNDKFFJAE6073-54-27 18:46:00 Test Item Value Reference Range Interpretation Comments Monocytes (test code = Monocytes) 10.3 2.0-12.0 [facility] DallasPfmejfzLWFFNMWXYP8653-22-41 18:46:00 Test Item Value Reference Range Interpretation Comments Lymphocytes (test code = Lymphocytes) 28.0 20.0-40.0 [facility] DallasYrqlitjSVEFLCELZV4005-15-30 18:46:00 Test Item Value Reference Range Interpretation Comments Monocytes # (test code 0.5 See_Comment [Aut omated message] The = Monocytes #) system which generated this result tra nsmitted reference range : <=0.8. The reference r mitra was not used to int erpret this result as normal/abnormal . [facility] DallasZdtqbnwRXFBFYGSUA4281-95-33 18:46:00 Test Item Value Reference Range Interpretation Comments Basophils (test code = 1.1 See_Comment [Aut omated message] The Basophils) system which ge nerated this result tra nsmitted reference range : <=1.0. The reference r mitra was not used to int erpret this result as normal/abnormal . [facility] DallasNtugcpbUFXDAXYJWW4621-38-62 18:46:00 Test Item Value Reference Range Interpretation Comments Lymphocytes # (test code = Lymphocytes 1.5 1.0-5.5 #) [facility] DallasWmhgxkaYVJSVHLWLL5188-94-55 18:46:00 Test Item Value Reference Range Interpretation Comments Segs-Bands # (test code = Segs-Bands #) 2.9 1.5-8.1 [facility] DallasKngghgfELAMYRIHWM0933-34-54 18:46:00 Test Item Value Reference Range Interpretation Comments Eosinophils # (test code 0.2 See_Comment [A utomated message] The = Eosinophils #) system whic h generated this result tra nsmitted reference range : <=0.5. The reference r mitra was not used to int erpret this result as normal/abnormal . [facility] DallasDuesdymXQKYGXDUWX7217-73-52 18:46:00 Test Item Value Reference Range Interpretation Comments Basophils # (test code 0.1 See_Comment [Aut omated message] The = Basophils #) system which generated this result tra nsmitted reference range : <=0.2. The reference r mitra was not used to int erpret this result as normal/abnormal . [facility] DallasLhwlqkkSOQNVOQBAG7187-02-74 18:46:00 Test Item Value Reference Range Interpretation Comments PT (test code = PT) 11.2 s 12.0-14.7 [facility] DallasBlionceFHYQYPKBHM3922-80-54 18:46:00 Test Item Value Reference Range Interpretation Comments INR (test code = INR) 0.82 0.85-1.17 [facility] DallasGsufqngADXEKFMGKE9476-37-79 18:46:00 Test Item Value Reference Range Interpretation Comments PTT (test code = PTT) 28.6 s 22.9-35.8 [facility] DallasLyetgvdUFETYZIEKD5627-42-78 18:46:00 Test Item Value Reference Range Interpretation Comments MPV (test code = MPV) 8.1 7.4-10.4 [facility] DallasFwizjimJHQUWJJKZI9939-15-56 18:46:00 Test Item Value Reference Range Interpretation Comments Platelet (test code = Platelet) 301 133-450 [facility] DallasNvkimbhPFLFCYZMLP9089-45-71 18:46:00 Test Item Value Reference Range Interpretation Comments RDW (test code = RDW) 14.5 11.5-14.5 [facility] DallasNscnxuuGEWHGEOZAU4172-97-94 18:46:00 Test Item Value Reference Range Interpretation Comments RBC (test code = RBC) 4.84 4.70-6.10 [facility] DallasSekoytmZCUSDFJUQA1966-50-51 18:46:00 Test Item Value Reference Range Interpretation Comments Hgb (test code = Hgb) 14.4 14.0-18.0 [facility] DallasDohmytlCMKLSXPSAU3009-85-09 18:46:00 Test Item Value Reference Range Interpretation Comments WBC (test code = WBC) 5.2 3.7-10.4 [facility] EmuppdqLPHGYRBZLK8813-00-12 18:46:00 Test Item Value Reference Range Interpretation Comments MCH (test code = MCH) 29.8 pg 27.0-31.0 [facility] LgfvhaeEKSFKXEENR8245-72-26 18:46:00 Test Item Value Reference Range Interpretation Comments MCV (test code = MCV) 92.0 80.0-94.0 [facility] EhzehjdZUPAJJOLIT9266-63-35 18:46:00 Test Item Value Reference Range Interpretation Comments Hct (test code = Hct) 44.5 42.0-54.0 [facility]LtjaahdQPPXHBGRZI8077-48-96 18:46:00 Test Item Value Reference Range Interpretation Comments MCHC (test code = MCHC) 32.4 32.0-36.0 [facility]landsKpxvsxfSZJVYNDTMY8614-54-30 18:46:00 Test Item Value Reference Range Interpretation Comments [place]-Hep C Ab (test Negative *NA*(07/22/14 code = [place]-Hep C 1:46 PM) Ab) [facility] AND [id number] 18:46:00 Test Item Value Reference Range Interpretation Comments UA Urobilinogen (test code = UA <=1.0 mg/dL 0.1-1.0 Urobilinogen) [facility] AND [id number] 18:46:00 Test Item Value Reference Range Interpretation Comments UA Sq Epi (test code = UA Sq Epi) None Seen [facility] AND [id number] 18:46:00 Test Item Value Reference Range Interpretation Comments UA Leuk Est (test Negative (07/22/14 1:46 code = UA Leuk Est) PM) [facility] AND [id number] 18:46:00 Test Item Value Reference Range Interpretation Comments UA Nitrite (test code Negative (07/22/14 1:46 = UA Nitrite) PM) [facility] AND [id number] 18:46:00 Test Item Value Reference Range Interpretation Comments UA Blood (test code = Negative (07/22/14 1:46 UA Blood) PM) [facility] AND [id number] 18:46:00 Test Item Value Reference Range Interpretation Comments UA Ketones (test code = UA Negative mg/dL Ketones) [facility] AND [id number] 18:46:00 Test Item Value Reference Range Interpretation Comments UA Bili (test code = Negative *NA*(07/22/14 UA Bili) 1:46 PM) [facility] AND [id number] 18:46:00 Test Item Value Reference Range Interpretation Comments UA Bacteria (test code = UA Occasional /HPF Bacteria) [facility] AND [id number] 18:46:00 Test Item Value Reference Range Interpretation Comments UA RBC (test code = no gt See_Comment [Automa elizabeth message] The UA RBC) system which ge nerated this result transmit elizabeth reference range : <=2. The reference range was not used to interpr et this result as margaret l/abnormal. [facility] AND [id number] 18:46:00 Test Item Value Reference Range Interpretation Comments UA WBC (test code = 1 See_Comment [Automa elizabeth message] The UA WBC) system which ge nerated this result transmit elizabeth reference range : <=5. The reference range was not used to interpr et this result as margaret l/abnormal. [facility] AND [id number] 18:46:00 Test Item Value Reference Range Interpretation Comments UA Glucose (test code = UA Glucose) 30 mg/dL [facility] AND [id number] 18:46:00 Test Item Value Reference Range Interpretation Comments UA Protein (test code = UA Negative mg/dL Protein) [facility] AND [id number] 18:46:00 Test Item Value Reference Range Interpretation Comments UA pH (test code = UA pH) 6.5 5.0-8.0 [facility] AND [id number] 18:46:00 Test Item Value Reference Range Interpretation Comments UA Turbidity (test code = Clear (07/22/14 1:46 UA Turbidity) PM) [facility] AND [id number] 18:46:00 Test Item Value Reference Range Interpretation Comments UA Spec Grav (test code = UA Spec Grav) 1.010 [facility] AND [id number] 18:46:00 Test Item Value Reference Range Interpretation Comments UA Color (test code = Light Yellow UA Color) *NA*(07/22/14 1:46 PM) [facility]2015-06-09 18:46:00 Test Item Value Reference Range Interpretation Comments Magnesium Lvl (test code = Magnesium 1.8 1.8-2.4 Lvl) [facility]msWWUAWTVSTYYG2205-60-79 18:46:00 Test Item Value Reference Range Interpretation Comments AGAP (test code = AGAP) 13.2 10.0-20.0 [facility] HospitalHjxnmdcGMNBCAIFEUTD1418-01-26 18:46:00 Test Item Value Reference Range Interpretation Comments B/C Ratio (test code = B/C Ratio) 18 6-25 [facility] HospitalKscohqgNRBAJSBUYKUL0629-68-53 18:46:00 Test Item Value Reference Range Interpretation Comments A/G Ratio (test code = A/G Ratio) 1.1 0.7-1.6 [facility] HospitalEfjhwnxXRLAELIRLIVY2209-13-28 18:46:00 Test Item Value Reference Range Interpretation Comments Globulin (test code = Globulin) 3.3 2.0-4.0 [facility] HospitalOgzbefgOCRKZXFWKROX9090-56-01 18:46:00 Test Item Value Reference Range Interpretation Comments eGFR (test code = eGFR) 99 [facility] HospitalNifjrwlODJBCYCNRBVL1709-83-77 18:46:00 Test Item Value Reference Range Interpretation Comments Calcium Lvl (test code = Calcium Lvl) 9.0 8.5-10.5 [facility] HospitalHicdhuePOKRHDRXUGCB3780-08-73 18:46:00 Test Item Value Reference Range Interpretation Comments Chloride Lvl (test code = Chloride Lvl) 106 95-109 [facility] HospitalFnmwqpqMGBXVTJZQCUH5669-45-09 18:46:00 Test Item Value Reference Range Interpretation Comments Creatinine Lvl (test code = Creatinine 0.9 0.5-1.4 Lvl) [facility] HospitalGfnbgazFYEDCVOSDELF5155-07-53 18:46:00 Test Item Value Reference Range Interpretation Comments Potassium Lvl (test code = Potassium 4.2 3.5-5.1 Lvl) [facility] HospitalJkfflvxTTMVTTLSROAR8425-94-02 18:46:00 Test Item Value Reference Range Interpretation Comments Sodium Lvl (test code = Sodium Lvl) 139 135-145 [facility] HospitalSsyrclcSCLXJTNDOBTM5671-17-92 18:46:00 Test Item Value Reference Range Interpretation Comments CO2 (test code = CO2) 24 24-32 [facility] HospitalDhroahkZUYZMZYKCKUR2218-64-05 18:46:00 Test Item Value Reference Range Interpretation Comments BUN (test code = BUN) 16 7-22 [facility] HospitalLsrfxuvENBIWHTZXPJE4286-23-51 18:46:00 Test Item Value Reference Range Interpretation Comments Glucose Lvl (test code = Glucose Lvl) 141 70-99 [facility] HospitalUflvqxyKDICOVKHJSVA6114-99-41 18:46:00 Test Item Value Reference Range Interpretation Comments Albumin Lvl (test code = Albumin Lvl) 3.6 3.5-5.0 [facility] HospitalLnafbgmFUDPKPUHNOEG5378-66-27 18:46:00 Test Item Value Reference Range Interpretation Comments Alk Phos (test code = Alk Phos) 65 39-136 [facility] HospitalRbqprpeXMEFDZLLYVHC7665-56-70 18:46:00 Test Item Value Reference Range Interpretation Comments Bili Total (test code = Bili Total) 0.3 0.2-1.3 [facility] HospitalTcuylhtGHYDOHBVJBXN1411-41-51 18:46:00 Test Item Value Reference Range Interpretation Comments ALT (test code = ALT) 100 See_Comment [Auto mated message] The system which ge nerated this result transmit elizabeth reference range : <=65. The reference range was not used to interpr et this result as margaret l/abnormal. [facility] HospitalUbctxgqWPFVMVCMGIBI9255-01-41 18:46:00 Test Item Value Reference Range Interpretation Comments AST (test code = AST) 53 See_Comment [Auto mated message] The system which ge nerated this result transmit elizabeth reference range : <=37. The reference range was not used to interpr et this result as margaret l/abnormal. [facility] HospitalTxppyhwLSQYJITZGVOX3794-96-38 18:46:00 Test Item Value Reference Range Interpretation Comments Total Protein (test code = Total 6.9 6.4-8.4 Protein) [facility] DallasFdxqwmjVQOHESSLYX0605-33-23 18:46:00 Test Item Value Reference Range Interpretation Comments Eosinophils (test code = 4.2 See_Comment [A utomated message] The Eosinophils) system which ge nerated this result tra nsmitted reference range : <=4.0. The reference r mitra was not used to int erpret this result as normal/abnormal . [facility] DallasVovmvkmYXIARWMKYN7786-10-39 18:46:00 Test Item Value Reference Range Interpretation Comments Segs (test code = Segs) 56.4 45.0-75.0 [facility] DallasJhlbiaaJBUBINQRMX4456-51-46 18:46:00 Test Item Value Reference Range Interpretation Comments Monocytes (test code = Monocytes) 10.3 2.0-12.0 [facility] DallasAtweczeQXLIAENKKV9657-76-96 18:46:00 Test Item Value Reference Range Interpretation Comments Lymphocytes (test code = Lymphocytes) 28.0 20.0-40.0 [facility] DallasRnlmfzlMIONSSXSFL5148-06-59 18:46:00 Test Item Value Reference Range Interpretation Comments Monocytes # (test code 0.5 See_Comment [Aut omated message] The = Monocytes #) system which generated this result tra nsmitted reference range : <=0.8. The reference r mitra was not used to int erpret this result as normal/abnormal . [facility] DallasOfinajhCBRMFHTIXG0013-85-87 18:46:00 Test Item Value Reference Range Interpretation Comments Basophils (test code = 1.1 See_Comment [Aut omated message] The Basophils) system which ge nerated this result tra nsmitted reference range : <=1.0. The reference r mitra was not used to int erpret this result as normal/abnormal . [facility] DallasTjqesmgGWFIKTWDNI4175-02-04 18:46:00 Test Item Value Reference Range Interpretation Comments Lymphocytes # (test code = Lymphocytes 1.5 1.0-5.5 #) [facility] DallasIpnjlpqNBYZRPOUYV8067-22-87 18:46:00 Test Item Value Reference Range Interpretation Comments Segs-Bands # (test code = Segs-Bands #) 2.9 1.5-8.1 [facility] DallasItkevabOBRAPHRHNE5225-21-68 18:46:00 Test Item Value Reference Range Interpretation Comments Eosinophils # (test code 0.2 See_Comment [A utomated message] The = Eosinophils #) system whic h generated this result tra nsmitted reference range : <=0.5. The reference r mitra was not used to int erpret this result as normal/abnormal . [facility] DallasTleuopgUORAQPSIKC2159-18-15 18:46:00 Test Item Value Reference Range Interpretation Comments Basophils # (test code 0.1 See_Comment [Aut omated message] The = Basophils #) system which generated this result tra nsmitted reference range : <=0.2. The reference r mitra was not used to int erpret this result as normal/abnormal . [facility] DallasDceeemwETPMONFHMA1762-25-32 18:46:00 Test Item Value Reference Range Interpretation Comments PT (test code = PT) 11.2 s 12.0-14.7 [facility] DallasZmjpcdcBLDFRZJRQN7517-09-36 18:46:00 Test Item Value Reference Range Interpretation Comments INR (test code = INR) 0.82 0.85-1.17 [facility] DallasZdeqslaNMXXCODPJV2528-65-74 18:46:00 Test Item Value Reference Range Interpretation Comments PTT (test code = PTT) 28.6 s 22.9-35.8 [facility] DallasPqlihkgHEYSUIIFKM3513-54-54 18:46:00 Test Item Value Reference Range Interpretation Comments MPV (test code = MPV) 8.1 7.4-10.4 [facility] DallasQgpavkwPNOUUBEFMR6329-32-74 18:46:00 Test Item Value Reference Range Interpretation Comments Platelet (test code = Platelet) 301 133-450 [facility] DallasYnleqaySGEPUNYOLU4207-03-40 18:46:00 Test Item Value Reference Range Interpretation Comments RDW (test code = RDW) 14.5 11.5-14.5 [facility] DallasHjllibzNHFESXBLRI7792-65-69 18:46:00 Test Item Value Reference Range Interpretation Comments RBC (test code = RBC) 4.84 4.70-6.10 [facility] DallasXrzsqlhIOUXFLLEEB5651-51-84 18:46:00 Test Item Value Reference Range Interpretation Comments Hgb (test code = Hgb) 14.4 14.0-18.0 [facility] DallasKrmnicmEADVGBYOCJ7554-92-31 18:46:00 Test Item Value Reference Range Interpretation Comments WBC (test code = WBC) 5.2 3.7-10.4 [facility] DallasIqwnwexTGCCWZQBUI9610-34-88 18:46:00 Test Item Value Reference Range Interpretation Comments MCH (test code = MCH) 29.8 pg 27.0-31.0 [facility] DallasShrsrkoINQKBZNXNI0322-99-81 18:46:00 Test Item Value Reference Range Interpretation Comments MCV (test code = MCV) 92.0 80.0-94.0 [facility] DallasCyeqigqGJKMKODYYX2891-62-84 18:46:00 Test Item Value Reference Range Interpretation Comments Hct (test code = Hct) 44.5 42.0-54.0 [facility]AekpydhFREJJMOLHS4646-65-13 18:46:00 Test Item Value Reference Range Interpretation Comments MCHC (test code = MCHC) 32.4 32.0-36.0 [facility]qIZUPDXKITK4642-98-78 18:46:00 Test Item Value Reference Range Interpretation Comments [place]-Hep C Ab (test Negative *NA*(07/22/14 code = [place]-Hep C 1:46 PM) Ab) [facility] AND [id number] 18:46:00 Test Item Value Reference Range Interpretation Comments UA Urobilinogen (test code = UA <=1.0 mg/dL 0.1-1.0 Urobilinogen) [facility] AND [id number] 18:46:00 Test Item Value Reference Range Interpretation Comments UA Sq Epi (test code = UA Sq Epi) None Seen [facility] AND [id number] 18:46:00 Test Item Value Reference Range Interpretation Comments UA Leuk Est (test Negative (07/22/14 1:46 code = UA Leuk Est) PM) [facility] AND [id number] 18:46:00 Test Item Value Reference Range Interpretation Comments UA Nitrite (test code Negative (07/22/14 1:46 = UA Nitrite) PM) [facility] AND [id number] 18:46:00 Test Item Value Reference Range Interpretation Comments UA Blood (test code = Negative (07/22/14 1:46 UA Blood) PM) [facility] AND [id number] 18:46:00 Test Item Value Reference Range Interpretation Comments UA Ketones (test code = UA Negative mg/dL Ketones) [facility] AND [id number] 18:46:00 Test Item Value Reference Range Interpretation Comments UA Bili (test code = Negative *NA*(07/22/14 UA Bili) 1:46 PM) [facility] AND [id number] 18:46:00 Test Item Value Reference Range Interpretation Comments UA Bacteria (test code = UA Occasional /HPF Bacteria) [facility] AND [id number] 18:46:00 Test Item Value Reference Range Interpretation Comments UA RBC (test code = no gt See_Comment [Automa elizabeth message] The UA RBC) system which ge nerated this result transmit elizabeth reference range : <=2. The reference range was not used to interpr et this result as margaret l/abnormal. [facility] AND [id number] 18:46:00 Test Item Value Reference Range Interpretation Comments UA WBC (test code = 1 See_Comment [Automa elizabeth message] The UA WBC) system which ge nerated this result transmit elizabeth reference range : <=5. The reference range was not used to interpr et this result as margaret l/abnormal. [facility] AND [id number] 18:46:00 Test Item Value Reference Range Interpretation Comments UA Glucose (test code = UA Glucose) 30 mg/dL [facility] AND [id number] 18:46:00 Test Item Value Reference Range Interpretation Comments UA Protein (test code = UA Negative mg/dL Protein) [facility] AND [id number] 18:46:00 Test Item Value Reference Range Interpretation Comments UA pH (test code = UA pH) 6.5 5.0-8.0 [facility] AND [id number] 18:46:00 Test Item Value Reference Range Interpretation Comments UA Turbidity (test code = Clear (07/22/14 1:46 UA Turbidity) PM) [facility] AND [id number] 18:46:00 Test Item Value Reference Range Interpretation Comments UA Spec Grav (test code = UA Spec Grav) 1.010 [facility] AND [id number] 18:46:00 Test Item Value Reference Range Interpretation Comments UA Color (test code = Light Yellow UA Color) *NA*(07/22/14 1:46 PM) [facility] HospitalannCHEM [id number] 18:46:00 Test Item Value Reference Range Interpretation Comments Magnesium Lvl (test code = Magnesium 1.8 1.8-2.4 Lvl) [facility]NwtphtpXTFWUOPKMLHO0554-11-35 18:46:00 Test Item Value Reference Range Interpretation Comments AGAP (test code = AGAP) 13.2 10.0-20.0 [facility]NsvbvxcOILWFFDMUXHO2089-94-35 18:46:00 Test Item Value Reference Range Interpretation Comments B/C Ratio (test code = B/C Ratio) 18 6-25 [facility] HospitalAgsqpecUGBYMZSZDEML9121-76-59 18:46:00 Test Item Value Reference Range Interpretation Comments A/G Ratio (test code = A/G Ratio) 1.1 0.7-1.6 [facility] HospitalLjxpsydROPCXHLDQRBF4049-56-53 18:46:00 Test Item Value Reference Range Interpretation Comments Globulin (test code = Globulin) 3.3 2.0-4.0 [facility] HospitalAqbkjkcITSFDCILKHBA5718-79-05 18:46:00 Test Item Value Reference Range Interpretation Comments eGFR (test code = eGFR) 99 [facility] HospitalWoaxokvKEHYTLZCNYNF2306-94-37 18:46:00 Test Item Value Reference Range Interpretation Comments Calcium Lvl (test code = Calcium Lvl) 9.0 8.5-10.5 [facility] HospitalDigrxdlEVBFFACXZPWT5820-18-07 18:46:00 Test Item Value Reference Range Interpretation Comments Chloride Lvl (test code = Chloride Lvl) 106 95-109 [facility] HospitalRrjxlloHUNHNYJFOTFB1246-91-54 18:46:00 Test Item Value Reference Range Interpretation Comments Creatinine Lvl (test code = Creatinine 0.9 0.5-1.4 Lvl) [facility] HospitalQkrrkeqJMLASPDGFYIX1519-74-01 18:46:00 Test Item Value Reference Range Interpretation Comments Potassium Lvl (test code = Potassium 4.2 3.5-5.1 Lvl) [facility] HospitalUbrazetIUZBEXURLCIX8997-84-84 18:46:00 Test Item Value Reference Range Interpretation Comments Sodium Lvl (test code = Sodium Lvl) 139 135-145 [facility] HospitalZrvppraJUZWUCTVVGLF5454-08-35 18:46:00 Test Item Value Reference Range Interpretation Comments CO2 (test code = CO2) 24 24-32 [facility] HospitalHfbbjsgPZPIIOJGNEHY6527-75-69 18:46:00 Test Item Value Reference Range Interpretation Comments BUN (test code = BUN) 16 7-22 [facility] HospitalKaxamxsCOMNQWXFOPQD9809-17-30 18:46:00 Test Item Value Reference Range Interpretation Comments Glucose Lvl (test code = Glucose Lvl) 141 70-99 [facility] HospitalYbkwmmmJSBCSBFOAXIS0978-58-51 18:46:00 Test Item Value Reference Range Interpretation Comments Albumin Lvl (test code = Albumin Lvl) 3.6 3.5-5.0 [facility] HospitalEtlcpolIHFFTBIZXFUF4314-89-33 18:46:00 Test Item Value Reference Range Interpretation Comments Alk Phos (test code = Alk Phos) 65 39-136 [facility] HospitalKzmneroBWLRFJASIEPT7828-53-13 18:46:00 Test Item Value Reference Range Interpretation Comments Bili Total (test code = Bili Total) 0.3 0.2-1.3 [facility] HospitalEzaazsbZEDROCBRHOYL0186-49-45 18:46:00 Test Item Value Reference Range Interpretation Comments ALT (test code = ALT) 100 See_Comment [Auto mated message] The system which ge nerated this result transmit elizabeth reference range : <=65. The reference range was not used to interpr et this result as margaret l/abnormal. [facility] HospitalWaooolqXORZFREGJECR7849-56-06 18:46:00 Test Item Value Reference Range Interpretation Comments AST (test code = AST) 53 See_Comment [Auto mated message] The system which ge nerated this result transmit elizabeth reference range : <=37. The reference range was not used to interpr et this result as margaret l/abnormal. [facility] HospitalYmnzubvGHHLKVJHTMDF4893-41-06 18:46:00 Test Item Value Reference Range Interpretation Comments Total Protein (test code = Total 6.9 6.4-8.4 Protein) [facility] DallasAhwinukROXQPTJSPK5236-75-29 18:46:00 Test Item Value Reference Range Interpretation Comments Eosinophils (test code = 4.2 See_Comment [A utomated message] The Eosinophils) system which ge nerated this result tra nsmitted reference range : <=4.0. The reference r mitra was not used to int erpret this result as normal/abnormal . [facility] DallasDmkzakjSRPKPIJKSI9687-22-65 18:46:00 Test Item Value Reference Range Interpretation Comments Segs (test code = Segs) 56.4 45.0-75.0 [facility] DallasEkouwjpJUAGEJJKQK2692-00-09 18:46:00 Test Item Value Reference Range Interpretation Comments Monocytes (test code = Monocytes) 10.3 2.0-12.0 [facility] DallasZyhwmvbOQWRMDTGQW0651-55-93 18:46:00 Test Item Value Reference Range Interpretation Comments Lymphocytes (test code = Lymphocytes) 28.0 20.0-40.0 [facility] DallasUszuvbnFICIJGEAWH7673-72-18 18:46:00 Test Item Value Reference Range Interpretation Comments Monocytes # (test code 0.5 See_Comment [Aut omated message] The = Monocytes #) system which generated this result tra nsmitted reference range : <=0.8. The reference r mitra was not used to int erpret this result as normal/abnormal . [facility] DallasSuznfxlIFEOBVXNOK3023-63-32 18:46:00 Test Item Value Reference Range Interpretation Comments Basophils (test code = 1.1 See_Comment [Aut omated message] The Basophils) system which ge nerated this result tra nsmitted reference range : <=1.0. The reference r mitra was not used to int erpret this result as normal/abnormal . [facility] DallasUgkinamPRJFCWSMGQ1001-42-61 18:46:00 Test Item Value Reference Range Interpretation Comments Lymphocytes # (test code = Lymphocytes 1.5 1.0-5.5 #) [facility] DallasUrdhqrvNXEJGTCVTD4483-99-99 18:46:00 Test Item Value Reference Range Interpretation Comments Segs-Bands # (test code = Segs-Bands #) 2.9 1.5-8.1 [facility] DallasZgombmvAFXVONMYNH6737-05-19 18:46:00 Test Item Value Reference Range Interpretation Comments Eosinophils # (test code 0.2 See_Comment [A utomated message] The = Eosinophils #) system whic h generated this result tra nsmitted reference range : <=0.5. The reference r mitra was not used to int erpret this result as normal/abnormal . [facility] DallasFomocxpODIFMFFJSP2702-57-58 18:46:00 Test Item Value Reference Range Interpretation Comments Basophils # (test code 0.1 See_Comment [Aut omated message] The = Basophils #) system which generated this result tra nsmitted reference range : <=0.2. The reference r mitra was not used to int erpret this result as normal/abnormal . [facility] DallasIkdtewvCORQAIJVDA2469-65-52 18:46:00 Test Item Value Reference Range Interpretation Comments PT (test code = PT) 11.2 s 12.0-14.7 [facility] DallasSnwjqiaISAZIFPIAI1053-31-39 18:46:00 Test Item Value Reference Range Interpretation Comments INR (test code = INR) 0.82 0.85-1.17 [facility] DallasMrjrfnoOTXHPPMWRY8019-05-12 18:46:00 Test Item Value Reference Range Interpretation Comments PTT (test code = PTT) 28.6 s 22.9-35.8 [facility]CwwvbrjLWNZOSELBI3318-67-94 18:46:00 Test Item Value Reference Range Interpretation Comments MPV (test code = MPV) 8.1 7.4-10.4 [facility]landsQtfigzpOVABSGTDUS5717-40-06 18:46:00 Test Item Value Reference Range Interpretation Comments Platelet (test code = Platelet) 301 133-450 [facility]landsKuxrmvvIOEBMNCGYA9536-74-40 18:46:00 Test Item Value Reference Range Interpretation Comments RDW (test code = RDW) 14.5 11.5-14.5 [facility]landsFiexzluVOMXZKTJMA8179-28-37 18:46:00 Test Item Value Reference Range Interpretation Comments RBC (test code = RBC) 4.84 4.70-6.10 [facility]landsIdyyyhhJZKGNYBNSL6019-99-92 18:46:00 Test Item Value Reference Range Interpretation Comments Hgb (test code = Hgb) 14.4 14.0-18.0 [facility]landsRmvemqnQIURQJGNDP4429-99-29 18:46:00 Test Item Value Reference Range Interpretation Comments WBC (test code = WBC) 5.2 3.7-10.4 [facility]landsSkefkjxKFGMNNIQIP9344-51-79 18:46:00 Test Item Value Reference Range Interpretation Comments MCH (test code = MCH) 29.8 pg 27.0-31.0 [facility] HospitalSteragkZBSYHYFNRU5059-95-76 18:46:00 Test Item Value Reference Range Interpretation Comments MCV (test code = MCV) 92.0 80.0-94.0 [facility] HospitalNlrpiokLFHXQKPYZN6646-06-16 18:46:00 Test Item Value Reference Range Interpretation Comments Hct (test code = Hct) 44.5 42.0-54.0 [facility] HospitalGlfverrMWSYUPTEML2204-83-73 18:46:00 Test Item Value Reference Range Interpretation Comments MCHC (test code = MCHC) 32.4 32.0-36.0 [facility]landsRejtbzxDBPRMIZNPI5110-25-53 18:46:00 Test Item Value Reference Range Interpretation Comments [place]-Hep C Ab (test Negative *NA*(07/22/14 code = [place]-Hep C 1:46 PM) Ab) [facility] AND [id number] 18:46:00 Test Item Value Reference Range Interpretation Comments UA Urobilinogen (test code = UA <=1.0 mg/dL 0.1-1.0 Urobilinogen) [facility] AND [id number] 18:46:00 Test Item Value Reference Range Interpretation Comments UA Sq Epi (test code = UA Sq Epi) None Seen [facility] AND [id number] 18:46:00 Test Item Value Reference Range Interpretation Comments UA Leuk Est (test Negative (07/22/14 1:46 code = UA Leuk Est) PM) [facility] AND [id number] 18:46:00 Test Item Value Reference Range Interpretation Comments UA Nitrite (test code Negative (07/22/14 1:46 = UA Nitrite) PM) [facility] AND [id number] 18:46:00 Test Item Value Reference Range Interpretation Comments UA Blood (test code = Negative (07/22/14 1:46 UA Blood) PM) [facility] AND [id number] 18:46:00 Test Item Value Reference Range Interpretation Comments UA Ketones (test code = UA Negative mg/dL Ketones) [facility] AND [id number] 18:46:00 Test Item Value Reference Range Interpretation Comments UA Bili (test code = Negative *NA*(07/22/14 UA Bili) 1:46 PM) [facility] AND [id number] 18:46:00 Test Item Value Reference Range Interpretation Comments UA Bacteria (test code = UA Occasional /HPF Bacteria) [facility] AND [id number] 18:46:00 Test Item Value Reference Range Interpretation Comments UA RBC (test code = no gt See_Comment [Automa elizabeth message] The UA RBC) system which ge nerated this result transmit elizabeth reference range : <=2. The reference range was not used to interpr et this result as margaret l/abnormal. [facility] AND [id number] 18:46:00 Test Item Value Reference Range Interpretation Comments UA WBC (test code = 1 See_Comment [Automa elizabeth message] The UA WBC) system which ge nerated this result transmit elizabeth reference range : <=5. The reference range was not used to interpr et this result as margaret l/abnormal. [facility] AND [id number] 18:46:00 Test Item Value Reference Range Interpretation Comments UA Glucose (test code = UA Glucose) 30 mg/dL [facility] AND [id number] 18:46:00 Test Item Value Reference Range Interpretation Comments UA Protein (test code = UA Negative mg/dL Protein) [facility] AND [id number] 18:46:00 Test Item Value Reference Range Interpretation Comments UA pH (test code = UA pH) 6.5 5.0-8.0 [facility] AND [id number] 18:46:00 Test Item Value Reference Range Interpretation Comments UA Turbidity (test code = Clear (07/22/14 1:46 UA Turbidity) PM) [facility] AND [id number] 18:46:00 Test Item Value Reference Range Interpretation Comments UA Spec Grav (test code = UA Spec Grav) 1.010 [facility] AND [id number] 18:46:00 Test Item Value Reference Range Interpretation Comments UA Color (test code = Light Yellow UA Color) *NA*(07/22/14 1:46 PM) [facility] [id number] 18:46:00 Test Item Value Reference Range Interpretation Comments Magnesium Lvl (test code = Magnesium 1.8 1.8-2.4 Lvl) [facility]ql[facility]xSSXPZZEMURIH9953-91-45 18:46:00 Test Item Value Reference Range Interpretation Comments AGAP (test code = AGAP) 13.2 10.0-20.0 [facility] HospitalTisnbnlQKXNPINHAXIQ7953-66-35 18:46:00 Test Item Value Reference Range Interpretation Comments B/C Ratio (test code = B/C Ratio) 18 6-25 [facility] HospitalGaqinmhSXXXHSTITDSW8873-02-23 18:46:00 Test Item Value Reference Range Interpretation Comments A/G Ratio (test code = A/G Ratio) 1.1 0.7-1.6 [facility] HospitalZsnknjwPWWMOYPGKZMV0205-80-61 18:46:00 Test Item Value Reference Range Interpretation Comments Globulin (test code = Globulin) 3.3 2.0-4.0 [facility] HospitalFyuojyhJEFVHAVWCMXF8888-55-05 18:46:00 Test Item Value Reference Range Interpretation Comments eGFR (test code = eGFR) 99 [facility] HospitalBepwcrjSXUEAIKPVCOT5749-34-63 18:46:00 Test Item Value Reference Range Interpretation Comments Calcium Lvl (test code = Calcium Lvl) 9.0 8.5-10.5 [facility] HospitalRptfbglWRPXXXDZCMMR6837-48-09 18:46:00 Test Item Value Reference Range Interpretation Comments Chloride Lvl (test code = Chloride Lvl) 106 95-109 [facility] HospitalCizeicnXRQDYWRGMBWG2692-42-54 18:46:00 Test Item Value Reference Range Interpretation Comments Creatinine Lvl (test code = Creatinine 0.9 0.5-1.4 Lvl) [facility] HospitalDhfziwyJMTRSOIJPGLW2379-52-65 18:46:00 Test Item Value Reference Range Interpretation Comments Potassium Lvl (test code = Potassium 4.2 3.5-5.1 Lvl) [facility] HospitalGepsbpjRJNJAQWMDNBV5860-10-22 18:46:00 Test Item Value Reference Range Interpretation Comments Sodium Lvl (test code = Sodium Lvl) 139 135-145 [facility] HospitalHgixrakSYRZAYFOBZXX4425-32-56 18:46:00 Test Item Value Reference Range Interpretation Comments CO2 (test code = CO2) 24 24-32 [facility] HospitalLoamvtrWVOFYECMMBNA3911-29-05 18:46:00 Test Item Value Reference Range Interpretation Comments BUN (test code = BUN) 16 7-22 [facility] HospitalQixhzqlDSWQEWTUGGIX5503-71-11 18:46:00 Test Item Value Reference Range Interpretation Comments Glucose Lvl (test code = Glucose Lvl) 141 70-99 [facility] HospitalKufybhhQHFDUEIQEXDD2224-97-11 18:46:00 Test Item Value Reference Range Interpretation Comments Albumin Lvl (test code = Albumin Lvl) 3.6 3.5-5.0 [facility] HospitalMeriuhgDMRPVKLIIXDZ4653-15-24 18:46:00 Test Item Value Reference Range Interpretation Comments Alk Phos (test code = Alk Phos) 65 39-136 [facility] HospitalNhqupswERRMJVWOBBMV9427-36-01 18:46:00 Test Item Value Reference Range Interpretation Comments Bili Total (test code = Bili Total) 0.3 0.2-1.3 [facility] HospitalEeicomlJRSPIUQUNYRE6497-90-46 18:46:00 Test Item Value Reference Range Interpretation Comments ALT (test code = ALT) 100 See_Comment [Auto mated message] The system which ge nerated this result transmit elizabeth reference range : <=65. The reference range was not used to interpr et this result as margaret l/abnormal. [facility] HospitalVvohedmZBZNRGSJNSCX3654-84-90 18:46:00 Test Item Value Reference Range Interpretation Comments AST (test code = AST) 53 See_Comment [Auto mated message] The system which ge nerated this result transmit elizabeth reference range : <=37. The reference range was not used to interpr et this result as margaret l/abnormal. [facility] HospitalRzfkuofOCRFFYMISNDF2016-90-68 18:46:00 Test Item Value Reference Range Interpretation Comments Total Protein (test code = Total 6.9 6.4-8.4 Protein) [facility] DallasHsbxwruRYNIRJNXHD2703-81-68 18:46:00 Test Item Value Reference Range Interpretation Comments Eosinophils (test code = 4.2 See_Comment [A utomated message] The Eosinophils) system which ge nerated this result tra nsmitted reference range : <=4.0. The reference r mitra was not used to int erpret this result as normal/abnormal . [facility] DallasVbglzrlPTPSSHAHWD8743-13-21 18:46:00 Test Item Value Reference Range Interpretation Comments Segs (test code = Segs) 56.4 45.0-75.0 [facility] DallasJfrueqeGVBLBRHTRW5047-56-02 18:46:00 Test Item Value Reference Range Interpretation Comments Monocytes (test code = Monocytes) 10.3 2.0-12.0 [facility] DallasAqfofulNPQIZCRPPZ6151-14-68 18:46:00 Test Item Value Reference Range Interpretation Comments Lymphocytes (test code = Lymphocytes) 28.0 20.0-40.0 [facility] DallasWhkfizxDKAHNPSLUX3098-50-87 18:46:00 Test Item Value Reference Range Interpretation Comments Monocytes # (test code 0.5 See_Comment [Aut omated message] The = Monocytes #) system which generated this result tra nsmitted reference range : <=0.8. The reference r mitra was not used to int erpret this result as normal/abnormal . [facility] DallasBmdmojeIKGFAALHER6386-69-36 18:46:00 Test Item Value Reference Range Interpretation Comments Basophils (test code = 1.1 See_Comment [Aut omated message] The Basophils) system which ge nerated this result tra nsmitted reference range : <=1.0. The reference r mitra was not used to int erpret this result as normal/abnormal . [facility] DallasAylcvwxRUMBYAASTY8683-02-60 18:46:00 Test Item Value Reference Range Interpretation Comments Lymphocytes # (test code = Lymphocytes 1.5 1.0-5.5 #) [facility] DallasBcqkvszVOAPOVZEFN5191-78-12 18:46:00 Test Item Value Reference Range Interpretation Comments Segs-Bands # (test code = Segs-Bands #) 2.9 1.5-8.1 [facility] DallasXxdfkceQEIQVGRWWG6366-25-09 18:46:00 Test Item Value Reference Range Interpretation Comments Eosinophils # (test code 0.2 See_Comment [A utomated message] The = Eosinophils #) system whic h generated this result tra nsmitted reference range : <=0.5. The reference r mitra was not used to int erpret this result as normal/abnormal . [facility] DallasXzmstrdESKPSBIUSS9012-03-09 18:46:00 Test Item Value Reference Range Interpretation Comments Basophils # (test code 0.1 See_Comment [Aut omated message] The = Basophils #) system which generated this result tra nsmitted reference range : <=0.2. The reference r mitra was not used to int erpret this result as normal/abnormal . [facility] DallasPyjcbwkYBGDOECSDS4155-43-54 18:46:00 Test Item Value Reference Range Interpretation Comments PT (test code = PT) 11.2 s 12.0-14.7 [facility] DallasAzjhuqdBRVLSZQGSX2332-91-66 18:46:00 Test Item Value Reference Range Interpretation Comments INR (test code = INR) 0.82 0.85-1.17 [facility] DallasDseejlcLNNERXEYYZ8840-85-72 18:46:00 Test Item Value Reference Range Interpretation Comments PTT (test code = PTT) 28.6 s 22.9-35.8 [facility] DallasAscsoagNRWDDNLHHE5365-64-60 18:46:00 Test Item Value Reference Range Interpretation Comments MPV (test code = MPV) 8.1 7.4-10.4 [facility] DallasXwesklfIZDQTYYEXG2921-28-91 18:46:00 Test Item Value Reference Range Interpretation Comments Platelet (test code = Platelet) 301 133-450 [facility] DallasZulicadNWSVABYMCM0308-03-25 18:46:00 Test Item Value Reference Range Interpretation Comments RDW (test code = RDW) 14.5 11.5-14.5 [facility] DallasVznrymxHGDPDASXOD1196-47-29 18:46:00 Test Item Value Reference Range Interpretation Comments RBC (test code = RBC) 4.84 4.70-6.10 [facility]olwZUDNZRMHNU6978[facility]-47 18:46:00 Test Item Value Reference Range Interpretation Comments Hgb (test code = Hgb) 14.4 14.0-18.0 [facility] HospitalAbvreulCTXFGFQHNI4907-16-42 18:46:00 Test Item Value Reference Range Interpretation Comments WBC (test code = WBC) 5.2 3.7-10.4 [facility] HospitalDfoeqmyBIDDADLRJB6518-90-34 18:46:00 Test Item Value Reference Range Interpretation Comments MCH (test code = MCH) 29.8 pg 27.0-31.0 [facility] DallasNrgefthOSNVJPTOTK4554-65-93 18:46:00 Test Item Value Reference Range Interpretation Comments MCV (test code = MCV) 92.0 80.0-94.0 [facility] DallasJcgszyeJRSXFCZQSA6707-29-71 18:46:00 Test Item Value Reference Range Interpretation Comments Hct (test code = Hct) 44.5 42.0-54.0 [facility] HospitalKwgbntsNAQOUDTLAB4255-27-45 18:46:00 Test Item Value Reference Range Interpretation Comments MCHC (test code = MCHC) 32.4 32.0-36.0 [facility]landsWhkfwazXDVTVBUVAC2494-29-58 18:46:00 Test Item Value Reference Range Interpretation Comments [place]-Hep C Ab (test Negative *NA*(07/22/14 code = [place]-Hep C 1:46 PM) Ab) [facility] AND [id number] 18:46:00 Test Item Value Reference Range Interpretation Comments UA Urobilinogen (test code = UA <=1.0 mg/dL 0.1-1.0 Urobilinogen) [facility] AND [id number] 18:46:00 Test Item Value Reference Range Interpretation Comments UA Sq Epi (test code = UA Sq Epi) None Seen [facility] AND [id number] 18:46:00 Test Item Value Reference Range Interpretation Comments UA Leuk Est (test Negative (07/22/14 1:46 code = UA Leuk Est) PM) [facility] AND [id number] 18:46:00 Test Item Value Reference Range Interpretation Comments UA Nitrite (test code Negative (07/22/14 1:46 = UA Nitrite) PM) [facility] AND [id number] 18:46:00 Test Item Value Reference Range Interpretation Comments UA Blood (test code = Negative (07/22/14 1:46 UA Blood) PM) [facility] AND [id number] 18:46:00 Test Item Value Reference Range Interpretation Comments UA Ketones (test code = UA Negative mg/dL Ketones) [facility] AND [id number] 18:46:00 Test Item Value Reference Range Interpretation Comments UA Bili (test code = Negative *NA*(07/22/14 UA Bili) 1:46 PM) [facility] AND [id number] 18:46:00 Test Item Value Reference Range Interpretation Comments UA Bacteria (test code = UA Occasional /HPF Bacteria) [facility] AND [id number] 18:46:00 Test Item Value Reference Range Interpretation Comments UA RBC (test code = no gt See_Comment [Automa elizabeth message] The UA RBC) system which ge nerated this result transmit elizabeth reference range : <=2. The reference range was not used to interpr et this result as margaret l/abnormal. [facility] AND [id number] 18:46:00 Test Item Value Reference Range Interpretation Comments UA WBC (test code = 1 See_Comment [Automa elizabeth message] The UA WBC) system which ge nerated this result transmit elizabeth reference range : <=5. The reference range was not used to interpr et this result as margaret l/abnormal. [facility] AND [id number] 18:46:00 Test Item Value Reference Range Interpretation Comments UA Glucose (test code = UA Glucose) 30 mg/dL [facility] AND [id number] 18:46:00 Test Item Value Reference Range Interpretation Comments UA Protein (test code = UA Negative mg/dL Protein) [facility] AND [id number] 18:46:00 Test Item Value Reference Range Interpretation Comments UA pH (test code = UA pH) 6.5 5.0-8.0 [facility] AND [id number] 18:46:00 Test Item Value Reference Range Interpretation Comments UA Turbidity (test code = Clear (07/22/14 1:46 UA Turbidity) PM) [facility] [id number] 18:46:00 Test Item Value Reference Range Interpretation Comments UA Spec Grav (test code = UA Spec Grav) 1.010 [facility] AND [id number] 18:46:00 Test Item Value Reference Range Interpretation Comments UA Color (test code = Light Yellow UA Color) *NA*(07/22/14 1:46 PM) [facility] [id number] 18:46:00 Test Item Value Reference Range Interpretation Comments Magnesium Lvl (test code = Magnesium 1.8 1.8-2.4 Lvl) [facility] HospitalVaynmtaPNURGZLHMAIP4127-88-01 18:46:00 Test Item Value Reference Range Interpretation Comments AGAP (test code = AGAP) 13.2 10.0-20.0 [facility] HospitalSsjahljXQJKTPBTSIXA1561-15-02 18:46:00 Test Item Value Reference Range Interpretation Comments B/C Ratio (test code = B/C Ratio) 18 6-25 [facility] HospitalBuosupxSAFKKKZATLPL0257-35-72 18:46:00 Test Item Value Reference Range Interpretation Comments A/G Ratio (test code = A/G Ratio) 1.1 0.7-1.6 [facility] HospitalAfctblxYUBZHGROQJKI2428-64-25 18:46:00 Test Item Value Reference Range Interpretation Comments Globulin (test code = Globulin) 3.3 2.0-4.0 [facility] HospitalRxfjrffUCWAYUFDEBZT4481-10-60 18:46:00 Test Item Value Reference Range Interpretation Comments eGFR (test code = eGFR) 99 [facility] HospitalUxicdyyXHQWFAFTMNTJ3477-71-18 18:46:00 Test Item Value Reference Range Interpretation Comments Calcium Lvl (test code = Calcium Lvl) 9.0 8.5-10.5 [facility] HospitalPdqzmnmYCGBMXTEUOIW3276-45-47 18:46:00 Test Item Value Reference Range Interpretation Comments Chloride Lvl (test code = Chloride Lvl) 106 95-109 [facility] HospitalNnhzvxyFDJQFHPBZFPN7413-46-92 18:46:00 Test Item Value Reference Range Interpretation Comments Creatinine Lvl (test code = Creatinine 0.9 0.5-1.4 Lvl) [facility] HospitalSthhaxjPILPUVPKHDMG8789-22-09 18:46:00 Test Item Value Reference Range Interpretation Comments Potassium Lvl (test code = Potassium 4.2 3.5-5.1 Lvl) [facility] HospitalBxnfpzoIXKOAFZUERDA7374-97-36 18:46:00 Test Item Value Reference Range Interpretation Comments Sodium Lvl (test code = Sodium Lvl) 139 135-145 [facility] HospitalTgnmgmeEOHTWQWHHAIA5987-20-14 18:46:00 Test Item Value Reference Range Interpretation Comments CO2 (test code = CO2) 24 24-32 [facility] HospitalVbixbgwCLTROLUGXQGY6613-91-57 18:46:00 Test Item Value Reference Range Interpretation Comments BUN (test code = BUN) 16 7-22 [facility] HospitalGiofdauPNFYDLAAPXFN4892-98-09 18:46:00 Test Item Value Reference Range Interpretation Comments Glucose Lvl (test code = Glucose Lvl) 141 70-99 [facility] HospitalMuahzluQFRZIFPFWALR2466-38-84 18:46:00 Test Item Value Reference Range Interpretation Comments Albumin Lvl (test code = Albumin Lvl) 3.6 3.5-5.0 [facility] HospitalDrnpcebFGASHMCHZWMC9496-46-91 18:46:00 Test Item Value Reference Range Interpretation Comments Alk Phos (test code = Alk Phos) 65 39-136 [facility] HospitalJsaipgpOKWSRODXZABX2509-02-33 18:46:00 Test Item Value Reference Range Interpretation Comments Bili Total (test code = Bili Total) 0.3 0.2-1.3 [facility] HospitalHcygtlfLHFHPDGRBTDL3638-58-24 18:46:00 Test Item Value Reference Range Interpretation Comments ALT (test code = ALT) 100 See_Comment [Auto mated message] The system which ge nerated this result transmit elizabeth reference range : <=65. The reference range was not used to interpr et this result as margaret l/abnormal. [facility] HospitalFwasjmvBYTPZYLYJMSY2413-28-49 18:46:00 Test Item Value Reference Range Interpretation Comments AST (test code = AST) 53 See_Comment [Auto mated message] The system which ge nerated this result transmit elizabeth reference range : <=37. The reference range was not used to interpr et this result as margaret l/abnormal. [facility] HospitalDhaohjyWYJLZHILYWJU5542-43-41 18:46:00 Test Item Value Reference Range Interpretation Comments Total Protein (test code = Total 6.9 6.4-8.4 Protein) [facility] DallasMvcqmqkBADRYOBFKQ0565-93-38 18:46:00 Test Item Value Reference Range Interpretation Comments Eosinophils (test code = 4.2 See_Comment [A utomated message] The Eosinophils) system which ge nerated this result tra nsmitted reference range : <=4.0. The reference r mitra was not used to int erpret this result as normal/abnormal . [facility] DallasGxhdrloWVXNSVWFVG5545-64-73 18:46:00 Test Item Value Reference Range Interpretation Comments Segs (test code = Segs) 56.4 45.0-75.0 [facility] DallasRbynwrqQUPZXKYGMY9250-94-10 18:46:00 Test Item Value Reference Range Interpretation Comments Monocytes (test code = Monocytes) 10.3 2.0-12.0 [facility] DallasVdgxuxoQYBEEEXCZX7057-50-94 18:46:00 Test Item Value Reference Range Interpretation Comments Lymphocytes (test code = Lymphocytes) 28.0 20.0-40.0 [facility] DallasBzqsxbdWPOLGEKWNC6267-99-79 18:46:00 Test Item Value Reference Range Interpretation Comments Monocytes # (test code 0.5 See_Comment [Aut omated message] The = Monocytes #) system which generated this result tra nsmitted reference range : <=0.8. The reference r mitra was not used to int erpret this result as normal/abnormal . [facility] DallasVamrosmMEGYFDZKDP4677-64-72 18:46:00 Test Item Value Reference Range Interpretation Comments Basophils (test code = 1.1 See_Comment [Aut omated message] The Basophils) system which ge nerated this result tra nsmitted reference range : <=1.0. The reference r mitra was not used to int erpret this result as normal/abnormal . [facility] DallasPoatykuGBZIOIPAWJ0352-42-66 18:46:00 Test Item Value Reference Range Interpretation Comments Lymphocytes # (test code = Lymphocytes 1.5 1.0-5.5 #) [facility] DallasVzxyhiyMJHZITRTYS0904-55-14 18:46:00 Test Item Value Reference Range Interpretation Comments Segs-Bands # (test code = Segs-Bands #) 2.9 1.5-8.1 [facility] DallasOqvvcgoNRLGMRPRAI3734-07-29 18:46:00 Test Item Value Reference Range Interpretation Comments Eosinophils # (test code 0.2 See_Comment [A utomated message] The = Eosinophils #) system ic h generated this result tra nsmitted reference range : <=0.5. The reference r mitra was not used to int erpret this result as normal/abnormal . [facility] DallasWlzcomcNROISPQJKJ0721-78-91 18:46:00 Test Item Value Reference Range Interpretation Comments Basophils # (test code 0.1 See_Comment [Aut omated message] The = Basophils #) system which generated this result tra nsmitted reference range : <=0.2. The reference r mitra was not used to int erpret this result as normal/abnormal . [facility] DallasEevfuriXNMUHANQEI3088-98-29 18:46:00 Test Item Value Reference Range Interpretation Comments PT (test code = PT) 11.2 s 12.0-14.7 [facility] DallasNiaipnhVFJXUQTQPZ2546-78-60 18:46:00 Test Item Value Reference Range Interpretation Comments INR (test code = INR) 0.82 0.85-1.17 [place] [id number] 18:46:00 Test Item Value Reference Range Interpretation Comments PTT (test code = PTT) 28.6 s 22.9-35.8 [facility] DallasJsfauiyHDFJFUDJEX6397-87-57 18:46:00 Test Item Value Reference Range Interpretation Comments MPV (test code = MPV) 8.1 7.4-10.4 [facility] DallasTmcqhjvHWDEUCCBST2235-65-02 18:46:00 Test Item Value Reference Range Interpretation Comments Platelet (test code = Platelet) 301 133-450 [facility] DallasFcfaoivYMJEGURGAZ6082-13-88 18:46:00 Test Item Value Reference Range Interpretation Comments RDW (test code = RDW) 14.5 11.5-14.5 [facility] DallasDcluzycTRENCOSGUV3040-69-54 18:46:00 Test Item Value Reference Range Interpretation Comments RBC (test code = RBC) 4.84 4.70-6.10 [facility] DallasUwwivrvDJTAXRBGCI2881-18-98 18:46:00 Test Item Value Reference Range Interpretation Comments Hgb (test code = Hgb) 14.4 14.0-18.0 [facility] DallasCfjospfEUHGWSAIGG4055-30-37 18:46:00 Test Item Value Reference Range Interpretation Comments WBC (test code = WBC) 5.2 3.7-10.4 [facility] DallasLkhodarFVFDKSFEVD5364-23-08 18:46:00 Test Item Value Reference Range Interpretation Comments MCH (test code = MCH) 29.8 pg 27.0-31.0 [facility]landsTrhmblkDHVEYSTMBA2072-70-90 18:46:00 Test Item Value Reference Range Interpretation Comments MCV (test code = MCV) 92.0 80.0-94.0 [facility] NqbxesdCOZJDATWRL5750-28-20 18:46:00 Test Item Value Reference Range Interpretation Comments Hct (test code = Hct) 44.5 42.0-54.0 [facility] VhozcvrSGRMHUCKRF3145-57-81 18:46:00 Test Item Value Reference Range Interpretation Comments MCHC (test code = MCHC) 32.4 32.0-36.0 [facility]landsPdcqlxhBEPFYPGYNQ3348-47-17 18:46:00 Test Item Value Reference Range Interpretation Comments [place]-Hep C Ab (test Negative *NA*(07/22/14 code = [place]-Hep C 1:46 PM) Ab) [facility] AND [id number] 18:46:00 Test Item Value Reference Range Interpretation Comments UA Urobilinogen (test code = UA <=1.0 mg/dL 0.1-1.0 Urobilinogen) [facility] AND [id number] 18:46:00 Test Item Value Reference Range Interpretation Comments UA Sq Epi (test code = UA Sq Epi) None Seen [facility] AND [id number] 18:46:00 Test Item Value Reference Range Interpretation Comments UA Leuk Est (test Negative (07/22/14 1:46 code = UA Leuk Est) PM) [facility] AND [id number] 18:46:00 Test Item Value Reference Range Interpretation Comments UA Nitrite (test code Negative (07/22/14 1:46 = UA Nitrite) PM) [facility] AND [id number] 18:46:00 Test Item Value Reference Range Interpretation Comments UA Blood (test code = Negative (07/22/14 1:46 UA Blood) PM) [facility] AND [id number] 18:46:00 Test Item Value Reference Range Interpretation Comments UA Ketones (test code = UA Negative mg/dL Ketones) [facility] AND [id number] 18:46:00 Test Item Value Reference Range Interpretation Comments UA Bili (test code = Negative *NA*(07/22/14 UA Bili) 1:46 PM) [facility] [id number] 18:46:00 Test Item Value Reference Range Interpretation Comments UA Bacteria (test code = UA Occasional /HPF Bacteria) [facility] [id number] 18:46:00 Test Item Value Reference Range Interpretation Comments UA RBC (test code = no gt See_Comment [Automa elizabeth message] The UA RBC) system which ge nerated this result transmit elizabeth reference range : <=2. The reference range was not used to interpr et this result as margaret l/abnormal. [facility] [id number] 18:46:00 Test Item Value Reference Range Interpretation Comments UA WBC (test code = 1 See_Comment [Automa elizabeth message] The UA WBC) system which ge nerated this result transmit elizabeth reference range : <=5. The reference range was not used to interpr et this result as margaret l/abnormal. [facility] [id number] 18:46:00 Test Item Value Reference Range Interpretation Comments UA Glucose (test code = UA Glucose) 30 mg/dL [facility] [id number] 18:46:00 Test Item Value Reference Range Interpretation Comments UA Protein (test code = UA Negative mg/dL Protein) [facility] [id number] 18:46:00 Test Item Value Reference Range Interpretation Comments UA pH (test code = UA pH) 6.5 5.0-8.0 [facility] [id number] 18:46:00 Test Item Value Reference Range Interpretation Comments UA Turbidity (test code = Clear (07/22/14 1:46 UA Turbidity) PM) [facility] [id number] 18:46:00 Test Item Value Reference Range Interpretation Comments UA Spec Grav (test code = UA Spec Grav) 1.010 [facility] [id number] 18:46:00 Test Item Value Reference Range Interpretation Comments UA Color (test code = Light Yellow UA Color) *NA*(07/22/14 1:46 PM) [facility] [id number] 18:46:00 Test Item Value Reference Range Interpretation Comments Magnesium Lvl (test code = Magnesium 1.8 1.8-2.4 Lvl) [facility] PxjxukmNYLTSDTOGSRZ1597-28-09 18:46:00 Test Item Value Reference Range Interpretation Comments AGAP (test code = AGAP) 13.2 10.0-20.0 [facility] HospitalCuioxcnMAXZDKVRRHSM7113-84-25 18:46:00 Test Item Value Reference Range Interpretation Comments B/C Ratio (test code = B/C Ratio) 18 6-25 [facility] HospitalStlakssGFLEYYKCOBPW8208-44-74 18:46:00 Test Item Value Reference Range Interpretation Comments A/G Ratio (test code = A/G Ratio) 1.1 0.7-1.6 [facility] HospitalEcvxxkoTONGBRWSRNXI0903-91-71 18:46:00 Test Item Value Reference Range Interpretation Comments Globulin (test code = Globulin) 3.3 2.0-4.0 [facility] HospitalUjvliisJSVJIIRGVAQQ4724-66-69 18:46:00 Test Item Value Reference Range Interpretation Comments eGFR (test code = eGFR) 99 [facility] HospitalQfwijtnYRFGYWWCUYIT0728-78-47 18:46:00 Test Item Value Reference Range Interpretation Comments Calcium Lvl (test code = Calcium Lvl) 9.0 8.5-10.5 [facility] HospitalAjjmheoMUTAFWCJBTQI4332-21-14 18:46:00 Test Item Value Reference Range Interpretation Comments Chloride Lvl (test code = Chloride Lvl) 106 95-109 [facility] HospitalMkoubujMZOULECUOVWT6217-45-07 18:46:00 Test Item Value Reference Range Interpretation Comments Creatinine Lvl (test code = Creatinine 0.9 0.5-1.4 Lvl) [facility] HospitalEfwpkbcTBMIRCWQBRXU3223-38-97 18:46:00 Test Item Value Reference Range Interpretation Comments Potassium Lvl (test code = Potassium 4.2 3.5-5.1 Lvl) [facility] HospitalDvngzstZZPSYELIOUCM2922-12-70 18:46:00 Test Item Value Reference Range Interpretation Comments Sodium Lvl (test code = Sodium Lvl) 139 135-145 [facility] HospitalIzgpmflAKCTUKVTGGBW4292-49-45 18:46:00 Test Item Value Reference Range Interpretation Comments CO2 (test code = CO2) 24 24-32 [facility] HospitalPpxekpzALHJQXLJURVE1146-98-74 18:46:00 Test Item Value Reference Range Interpretation Comments BUN (test code = BUN) 16 7-22 [facility] HospitalShsdvzzEMGDWCOXIOIX8926-73-13 18:46:00 Test Item Value Reference Range Interpretation Comments Glucose Lvl (test code = Glucose Lvl) 141 70-99 [facility] HospitalNxvctaaMNOOYYXWSALF3799-62-56 18:46:00 Test Item Value Reference Range Interpretation Comments Albumin Lvl (test code = Albumin Lvl) 3.6 3.5-5.0 [facility] HospitalZxlmsbrIAVFQIAYEFXV8067-64-84 18:46:00 Test Item Value Reference Range Interpretation Comments Alk Phos (test code = Alk Phos) 65 39-136 [facility] HospitalYmhjvanGYTDLECNAIXU2020-88-96 18:46:00 Test Item Value Reference Range Interpretation Comments Bili Total (test code = Bili Total) 0.3 0.2-1.3 [facility] HospitalSabrnnbUTAYQNPMSCLM7190-92-59 18:46:00 Test Item Value Reference Range Interpretation Comments ALT (test code = ALT) 100 See_Comment [Auto mated message] The system which ge nerated this result transmit elizabeth reference range : <=65. The reference range was not used to interpr et this result as margaret l/abnormal. [facility] HospitalNsgxkotEESJCXULTYNO4893-04-97 18:46:00 Test Item Value Reference Range Interpretation Comments AST (test code = AST) 53 See_Comment [Auto mated message] The system which ge nerated this result transmit elizabeth reference range : <=37. The reference range was not used to interpr et this result as margaret l/abnormal. [facility] HospitalOohvrotXMGWGNLIXXKC1145-27-67 18:46:00 Test Item Value Reference Range Interpretation Comments Total Protein (test code = Total 6.9 6.4-8.4 Protein) [facility] DallasXutmaiqKKIYGUNAQF1403-34-41 18:46:00 Test Item Value Reference Range Interpretation Comments Eosinophils (test code = 4.2 See_Comment [A utomated message] The Eosinophils) system which ge nerated this result tra nsmitted reference range : <=4.0. The reference r mitra was not used to int erpret this result as normal/abnormal . [facility] DallasWrecuvtUALOGOQWOO6097-91-42 18:46:00 Test Item Value Reference Range Interpretation Comments Segs (test code = Segs) 56.4 45.0-75.0 [facility] DallasAbnmwdsNZXVAAVJTN5703-98-82 18:46:00 Test Item Value Reference Range Interpretation Comments Monocytes (test code = Monocytes) 10.3 2.0-12.0 [facility] DallasXwxnlqcNQJBBQAKWX9261-12-71 18:46:00 Test Item Value Reference Range Interpretation Comments Lymphocytes (test code = Lymphocytes) 28.0 20.0-40.0 [facility] DallasAoqvphzEWQBDJSMLF7263-25-89 18:46:00 Test Item Value Reference Range Interpretation Comments Monocytes # (test code 0.5 See_Comment [Aut omated message] The = Monocytes #) system which generated this result tra nsmitted reference range : <=0.8. The reference r mitra was not used to int erpret this result as normal/abnormal . [facility] DallasRzxefjcMAPCJVBVFO6343-48-36 18:46:00 Test Item Value Reference Range Interpretation Comments Basophils (test code = 1.1 See_Comment [Aut omated message] The Basophils) system which ge nerated this result tra nsmitted reference range : <=1.0. The reference r mitra was not used to int erpret this result as normal/abnormal . [facility] DallasUgsgdrbMCQVIVGQHS3409-57-07 18:46:00 Test Item Value Reference Range Interpretation Comments Lymphocytes # (test code = Lymphocytes 1.5 1.0-5.5 #) [facility] DallasSsnbmemSAFVXILTUI0713-32-24 18:46:00 Test Item Value Reference Range Interpretation Comments Segs-Bands # (test code = Segs-Bands #) 2.9 1.5-8.1 [facility] DallasOkomifrGKJNYFKJUJ1207-27-05 18:46:00 Test Item Value Reference Range Interpretation Comments Eosinophils # (test code 0.2 See_Comment [A utomated message] The = Eosinophils #) system [facility] h generated this result tra nsmitted reference range : <=0.5. The reference r mitra was not used to int erpret this result as normal/abnormal . [facility] DallasVeznpdbNSQAMOKFDT4215-58-67 18:46:00 Test Item Value Reference Range Interpretation Comments Basophils # (test code 0.1 See_Comment [Aut omated message] The = Basophils #) system which generated this result tra nsmitted reference range : <=0.2. The reference r mitra was not used to int erpret this result as normal/abnormal . [facility] DallasBrddjgvUYENYRAGON1341-88-00 18:46:00 Test Item Value Reference Range Interpretation Comments PT (test code = PT) 11.2 s 12.0-14.7 [facility] DallasNcpaqbnTCVGZGHAEN0766-36-46 18:46:00 Test Item Value Reference Range Interpretation Comments INR (test code = INR) 0.82 0.85-1.17 [facility] DallasXpdgawdBCXHLKPOBU6475-48-55 18:46:00 Test Item Value Reference Range Interpretation Comments PTT (test code = PTT) 28.6 s 22.9-35.8 [facility] DallasDmjronyDSBABOKATZ1002-86-65 18:46:00 Test Item Value Reference Range Interpretation Comments MPV (test code = MPV) 8.1 7.4-10.4 [facility] DallasVnuoihmLDLKOYNLLV6878-05-18 18:46:00 Test Item Value Reference Range Interpretation Comments Platelet (test code = Platelet) 301 133-450 [facility] DallasNqijoiuXVRJNWEKOD8905-00-09 18:46:00 Test Item Value Reference Range Interpretation Comments RDW (test code = RDW) 14.5 11.5-14.5 [facility] DallasZbuhoamBLKMKEVGUA8659-32-94 18:46:00 Test Item Value Reference Range Interpretation Comments RBC (test code = RBC) 4.84 4.70-6.10 [facility] DallasLshyypaQURWPBCIOM3137-23-34 18:46:00 Test Item Value Reference Range Interpretation Comments Hgb (test code = Hgb) 14.4 14.0-18.0 [facility] DallasQfixwcpHQNDBYJNPG3379-73-92 18:46:00 Test Item Value Reference Range Interpretation Comments WBC (test code = WBC) 5.2 3.7-10.4 [facility] DallasBpvjizzXIZWSXXCQW4765-25-66 18:46:00 Test Item Value Reference Range Interpretation Comments MCH (test code = MCH) 29.8 pg 27.0-31.0 [facility] DallasLjixjbmTGPHJHPOID7483-71-06 18:46:00 Test Item Value Reference Range Interpretation Comments MCV (test code = MCV) 92.0 80.0-94.0 [facility] DallasPeuwajeXJLOAPTZSI2993-57-56 18:46:00 Test Item Value Reference Range Interpretation Comments Hct (test code = Hct) 44.5 42.0-54.0 [facility] DallasPbfoevjMHUSKNVFHT7195-24-34 18:46:00 Test Item Value Reference Range Interpretation Comments MCHC (test code = MCHC) 32.4 32.0-36.0 [facility]landsNqojwphKXLRSZPJSS4727-55-96 18:46:00 Test Item Value Reference Range Interpretation Comments [place]-Hep C Ab (test Negative *NA*(07/22/14 code = [place]-Hep C 1:46 PM) Ab) [facility] AND [id number] 18:46:00 Test Item Value Reference Range Interpretation Comments UA Urobilinogen (test code = UA <=1.0 mg/dL 0.1-1.0 Urobilinogen) [facility] AND [id number] 18:46:00 Test Item Value Reference Range Interpretation Comments UA Sq Epi (test code = UA Sq Epi) None Seen [facility] AND [id number] 18:46:00 Test Item Value Reference Range Interpretation Comments UA Leuk Est (test Negative (07/22/14 1:46 code = UA Leuk Est) PM) [facility] AND [id number] 18:46:00 Test Item Value Reference Range Interpretation Comments UA Nitrite (test code Negative (07/22/14 1:46 = UA Nitrite) PM) [facility] AND [id number] 18:46:00 Test Item Value Reference Range Interpretation Comments UA Blood (test code = Negative (07/22/14 1:46 UA Blood) PM) [facility] AND [id number] 18:46:00 Test Item Value Reference Range Interpretation Comments UA Ketones (test code = UA Negative mg/dL Ketones) [facility] AND [id number] 18:46:00 Test Item Value Reference Range Interpretation Comments UA Bili (test code = Negative *NA*(07/22/14 UA Bili) 1:46 PM) [facility] AND [id number] 18:46:00 Test Item Value Reference Range Interpretation Comments UA Bacteria (test code = UA Occasional /HPF Bacteria) [facility] AND [id number] 18:46:00 Test Item Value Reference Range Interpretation Comments UA RBC (test code = no gt See_Comment [Automa elizabeth message] The UA RBC) system which ge nerated this result transmit elizabeth reference range : <=2. The reference range was not used to interpr et this result as margaret l/abnormal. [facility] AND [id number] 18:46:00 Test Item Value Reference Range Interpretation Comments UA WBC (test code = 1 See_Comment [Automa elizabeth message] The UA WBC) system which ge nerated this result transmit elizabeth reference range : <=5. The reference range was not used to interpr et this result as margaret l/abnormal. [facility] AND [id number] 18:46:00 Test Item Value Reference Range Interpretation Comments UA Glucose (test code = UA Glucose) 30 mg/dL [facility] AND [id number] 18:46:00 Test Item Value Reference Range Interpretation Comments UA Protein (test code = UA Negative mg/dL Protein) [facility] AND [id number] 18:46:00 Test Item Value Reference Range Interpretation Comments UA pH (test code = UA pH) 6.5 5.0-8.0 [facility] AND [id number] 18:46:00 Test Item Value Reference Range Interpretation Comments UA Turbidity (test code = Clear (07/22/14 1:46 UA Turbidity) PM) [facility] AND [id number] 18:46:00 Test Item Value Reference Range Interpretation Comments UA Spec Grav (test code = UA Spec Grav) 1.010 [facility] AND [id number] 18:46:00 Test Item Value Reference Range Interpretation Comments UA Color (test code = Light Yellow UA Color) *NA*(07/22/14 1:46 PM) [facility] [id number] 18:46:00 Test Item Value Reference Range Interpretation Comments Magnesium Lvl (test code = Magnesium 1.8 1.8-2.4 Lvl) [facility] HospitalGowcetvAGTIFLYRXTMZ9561-44-44 18:46:00 Test Item Value Reference Range Interpretation Comments AGAP (test code = AGAP) 13.2 10.0-20.0 [facility] HospitalVbszksqPRLPNBYBXPZE0690-95-22 18:46:00 Test Item Value Reference Range Interpretation Comments B/C Ratio (test code = B/C Ratio) 18 6-25 [facility] HospitalVgauukvHKLPUWULNFTT4232-92-79 18:46:00 Test Item Value Reference Range Interpretation Comments A/G Ratio (test code = A/G Ratio) 1.1 0.7-1.6 [facility] HospitalEaifzstONMSJESZCQOM3089-25-13 18:46:00 Test Item Value Reference Range Interpretation Comments Globulin (test code = Globulin) 3.3 2.0-4.0 [facility] HospitalWjatkdlWANJGGLOKDIG2391-78-18 18:46:00 Test Item Value Reference Range Interpretation Comments eGFR (test code = eGFR) 99 [facility] HospitalInnpvxrFVVQEPBEYNJE0647-16-66 18:46:00 Test Item Value Reference Range Interpretation Comments Calcium Lvl (test code = Calcium Lvl) 9.0 8.5-10.5 [facility] HospitalZxwxweaTKEKDVIRNKOG4602-35-67 18:46:00 Test Item Value Reference Range Interpretation Comments Chloride Lvl (test code = Chloride Lvl) 106 95-109 [facility] HospitalChkyaffGOLACGGDEIYH2038-14-13 18:46:00 Test Item Value Reference Range Interpretation Comments Creatinine Lvl (test code = Creatinine 0.9 0.5-1.4 Lvl) [facility] HospitalKmqdcnxNAXMRPLLRNSF4348-96-34 18:46:00 Test Item Value Reference Range Interpretation Comments Potassium Lvl (test code = Potassium 4.2 3.5-5.1 Lvl) [facility] HospitalOxncrplLJNFXOFEHITB9509-85-96 18:46:00 Test Item Value Reference Range Interpretation Comments Sodium Lvl (test code = Sodium Lvl) 139 135-145 [facility] HospitalPlkggccPNUTAURQPZGS6278-03-46 18:46:00 Test Item Value Reference Range Interpretation Comments CO2 (test code = CO2) 24 24-32 [facility] HospitalPxxdjzyFJHCUGHPCSDE2396-25-64 18:46:00 Test Item Value Reference Range Interpretation Comments BUN (test code = BUN) 16 7-22 [facility] HospitalKxfplddKVTYPMPHVVSY4194-58-37 18:46:00 Test Item Value Reference Range Interpretation Comments Glucose Lvl (test code = Glucose Lvl) 141 70-99 [facility] HospitalUgswicaEEBGNEBTLDEV1588-64-19 18:46:00 Test Item Value Reference Range Interpretation Comments Albumin Lvl (test code = Albumin Lvl) 3.6 3.5-5.0 [facility] HospitalIkuprtfMETTMPHROQFN8938-63-80 18:46:00 Test Item Value Reference Range Interpretation Comments Alk Phos (test code = Alk Phos) 65 39-136 [facility] HospitalPepmbmrQMUPOSKSQGZF4190-92-90 18:46:00 Test Item Value Reference Range Interpretation Comments Bili Total (test code = Bili Total) 0.3 0.2-1.3 [facility] HospitalTptsmkfRKDPJXAFAMSM8183-57-62 18:46:00 Test Item Value Reference Range Interpretation Comments ALT (test code = ALT) 100 See_Comment [Auto mated message] The system which ge nerated this result transmit elizabeth reference range : <=65. The reference range was not used to interpr et this result as margaret l/abnormal. [facility] HospitalCkolukzZQZFCDDXMASA1704-38-17 18:46:00 Test Item Value Reference Range Interpretation Comments AST (test code = AST) 53 See_Comment [Auto mated message] The system which ge nerated this result transmit elizabeth reference range : <=37. The reference range was not used to interpr et this result as margaret l/abnormal. [facility] HospitalPvgsgbaDDGKCEZSUBOB1194-97-47 18:46:00 Test Item Value Reference Range Interpretation Comments Total Protein (test code = Total 6.9 6.4-8.4 Protein) [facility] DallasMagljczTHIJZMCNER2134-06-21 18:46:00 Test Item Value Reference Range Interpretation Comments Eosinophils (test code = 4.2 See_Comment [A utomated message] The Eosinophils) system which ge nerated this result tra nsmitted reference range : <=4.0. The reference r mitra was not used to int erpret this result as normal/abnormal . [facility] DallasRilikszJNLUPRGVUC3892-70-60 18:46:00 Test Item Value Reference Range Interpretation Comments Segs (test code = Segs) 56.4 45.0-75.0 [facility] DallasMevoschHJGMNTCEMS3605-86-66 18:46:00 Test Item Value Reference Range Interpretation Comments Monocytes (test code = Monocytes) 10.3 2.0-12.0 [facility] DallasHvlfdclFMEJGVPZFJ0648-59-42 18:46:00 Test Item Value Reference Range Interpretation Comments Lymphocytes (test code = Lymphocytes) 28.0 20.0-40.0 [facility] DallasBdffmtgXGKWRVFUMH3175-95-45 18:46:00 Test Item Value Reference Range Interpretation Comments Monocytes # (test code 0.5 See_Comment [Aut omated message] The = Monocytes #) system which generated this result tra nsmitted reference range : <=0.8. The reference r mitra was not used to int erpret this result as normal/abnormal . [facility] DallasYcmsgrpMIFVPJIMSF8893-61-20 18:46:00 Test Item Value Reference Range Interpretation Comments Basophils (test code = 1.1 See_Comment [Aut omated message] The Basophils) system which ge nerated this result tra nsmitted reference range : <=1.0. The reference r mitra was not used to int erpret this result as normal/abnormal . [facility] DallasCumfwezHINXTKJFHA7060-42-65 18:46:00 Test Item Value Reference Range Interpretation Comments Lymphocytes # (test code = Lymphocytes 1.5 1.0-5.5 #) [facility] DallasHvqicdrXZZIZANPBJ7234-73-92 18:46:00 Test Item Value Reference Range Interpretation Comments Segs-Bands # (test code = Segs-Bands #) 2.9 1.5-8.1 [facility] DallasFktvnnxPXJHKVWQIG0944-57-46 18:46:00 Test Item Value Reference Range Interpretation Comments Eosinophils # (test code 0.2 See_Comment [A utomated message] The = Eosinophils #) system whic h generated this result tra nsmitted reference range : <=0.5. The reference r mitra was not used to int erpret this result as normal/abnormal . [facility] DallasGxbuvuxYYWGSVBBSP0709-23-27 18:46:00 Test Item Value Reference Range Interpretation Comments Basophils # (test code 0.1 See_Comment [Aut omated message] The = Basophils #) system which generated this result tra nsmitted reference range : <=0.2. The reference r mitra was not used to int erpret this result as normal/abnormal . [facility] DallasFnhmmqqDYECQNLFTW9885-74-68 18:46:00 Test Item Value Reference Range Interpretation Comments PT (test code = PT) 11.2 s 12.0-14.7 [facility] DallasBpebrogRCEXNXAXTJ1351-75-56 18:46:00 Test Item Value Reference Range Interpretation Comments INR (test code = INR) 0.82 0.85-1.17 [facility] DallasWvixtdtXLDMFDRAPF6814-78-06 18:46:00 Test Item Value Reference Range Interpretation Comments PTT (test code = PTT) 28.6 s 22.9-35.8 [facility] DallasQmqspzlNDMTQLFITK4652-79-52 18:46:00 Test Item Value Reference Range Interpretation Comments MPV (test code = MPV) 8.1 7.4-10.4 [facility] DallasJzmxkvzAVUPTXGPRL5398-35-19 18:46:00 Test Item Value Reference Range Interpretation Comments Platelet (test code = Platelet) 301 133-450 [facility]BukktelKHLNVWRJKC5287-14-09 18:46:00 Test Item Value Reference Range Interpretation Comments RDW (test code = RDW) 14.5 11.5-14.5 [facility] HospitalZajxgmkZXIZSTHQLD4734-28-41 18:46:00 Test Item Value Reference Range Interpretation Comments RBC (test code = RBC) 4.84 4.70-6.10 [facility] DallasWbfmgiqWSETWKQVEN3696-68-63 18:46:00 Test Item Value Reference Range Interpretation Comments Hgb (test code = Hgb) 14.4 14.0-18.0 [facility] DallasWiyndaqTNLKQDXREW0267-25-75 18:46:00 Test Item Value Reference Range Interpretation Comments WBC (test code = WBC) 5.2 3.7-10.4 [facility] DallasZwatxmuHFJSSMCSRV3627-78-86 18:46:00 Test Item Value Reference Range Interpretation Comments MCH (test code = MCH) 29.8 pg 27.0-31.0 [facility] DallasMxesoqxGYWCYGEEOX4182-38-22 18:46:00 Test Item Value Reference Range Interpretation Comments MCV (test code = MCV) 92.0 80.0-94.0 [facility] HospitalFzjczriELJNJPCLNR9887-45-60 18:46:00 Test Item Value Reference Range Interpretation Comments Hct (test code = Hct) 44.5 42.0-54.0 [facility] HospitalZemshjrGKAYVWTYLU7481-36-37 18:46:00 Test Item Value Reference Range Interpretation Comments MCHC (test code = MCHC) 32.4 32.0-36.0 [facility]landsDlktmfmJMPZMXAEWL5127-08-86 18:46:00 Test Item Value Reference Range Interpretation Comments [place]-Hep C Ab (test Negative *NA*(07/22/14 code = [place]-Hep C 1:46 PM) Ab) [facility] [id number] 18:46:00 Test Item Value Reference Range Interpretation Comments UA Urobilinogen (test code = UA <=1.0 mg/dL 0.1-1.0 Urobilinogen) [facility] [id number] 18:46:00 Test Item Value Reference Range Interpretation Comments UA Sq Epi (test code = UA Sq Epi) None [facility]en [facility] [id number] 18:46:00 Test Item Value Reference Range Interpretation Comments UA Leuk Est (test Negative (07/22/14 1:46 code = UA Leuk Est) PM) [facility] AND [id number] 18:46:00 Test Item Value Reference Range Interpretation Comments UA Nitrite (test code Negative (07/22/14 1:46 = UA Nitrite) PM) [facility] AND [id number] 18:46:00 Test Item Value Reference Range Interpretation Comments UA Blood (test code = Negative (07/22/14 1:46 UA Blood) PM) [facility] AND [id number] 18:46:00 Test Item Value Reference Range Interpretation Comments UA Ketones (test code = UA Negative mg/dL Ketones) [facility] AND [id number] 18:46:00 Test Item Value Reference Range Interpretation Comments UA Bili (test code = Negative *NA*(07/22/14 UA Bili) 1:46 PM) [facility] AND [id number] 18:46:00 Test Item Value Reference Range Interpretation Comments UA Bacteria (test code = UA Occasional /HPF Bacteria) [facility] AND [id number] 18:46:00 Test Item Value Reference Range Interpretation Comments UA RBC (test code = no gt See_Comment [Automa elizabeth message] The UA RBC) system which ge nerated this result transmit elizabeth reference range : <=2. The reference range was not used to interpr et this result as margaret l/abnormal. [facility] AND [id number] 18:46:00 Test Item Value Reference Range Interpretation Comments UA WBC (test code = 1 See_Comment [Automa elizabeth message] The UA WBC) system which ge nerated this result transmit elizabeth reference range : <=5. The reference range was not used to interpr et this result as margaret l/abnormal. [facility] AND [id number] 18:46:00 Test Item Value Reference Range Interpretation Comments UA Glucose (test code = UA Glucose) 30 mg/dL [facility] AND [id number] 18:46:00 Test Item Value Reference Range Interpretation Comments UA Protein (test code = UA Negative mg/dL Protein) [facility] AND [id number] 18:46:00 Test Item Value Reference Range Interpretation Comments UA pH (test code = UA pH) 6.5 5.0-8.0 [facility] [id number] 18:46:00 Test Item Value Reference Range Interpretation Comments UA Turbidity (test code = Clear (07/22/14 1:46 UA Turbidity) PM) [facility] [id number] 18:46:00 Test Item Value Reference Range Interpretation Comments UA Spec Grav (test code = UA Spec Grav) 1.010 [facility] AND [id number] 18:46:00 Test Item Value Reference Range Interpretation Comments UA Color (test code = Light Yellow UA Color) *NA*(07/22/14 1:46 PM) [facility] [id number] 18:46:00 Test Item Value Reference Range Interpretation Comments Magnesium Lvl (test code = Magnesium 1.8 1.8-2.4 Lvl) [facility]DdikqvqATNGHHOGYAYD6292-23-40 18:46:00 Test Item Value Reference Range Interpretation Comments AGAP (test code = AGAP) 13.2 10.0-20.0 [facility] HospitalSakornlJYDQSHZGKNSL2456-24-38 18:46:00 Test Item Value Reference Range Interpretation Comments B/C Ratio (test code = B/C Ratio) 18 6-25 [facility] HospitalDfjoarnVWEMQYXLURBQ0421-31-46 18:46:00 Test Item Value Reference Range Interpretation Comments A/G Ratio (test code = A/G Ratio) 1.1 0.7-1.6 [facility] HospitalQstpcajAHEHXKUDSVXE6444-59-84 18:46:00 Test Item Value Reference Range Interpretation Comments Globulin (test code = Globulin) 3.3 2.0-4.0 [facility] HospitalVehvncyGNNUYMDNQJAK2615-52-45 18:46:00 Test Item Value Reference Range Interpretation Comments eGFR (test code = eGFR) 99 [facility] HospitalDswzpqaXMADVEZYRFYA6961-56-25 18:46:00 Test Item Value Reference Range Interpretation Comments Calcium Lvl (test code = Calcium Lvl) 9.0 8.5-10.5 [facility] HospitalCndbozjNRMQNMCVARFV9714-79-88 18:46:00 Test Item Value Reference Range Interpretation Comments Chloride Lvl (test code = Chloride Lvl) 106 95-109 [facility] HospitalBfxmbvuYTNMOURIZJMQ0803-14-60 18:46:00 Test Item Value Reference Range Interpretation Comments Creatinine Lvl (test code = Creatinine 0.9 0.5-1.4 Lvl) [facility] HospitalThtlduqTQPOTLXKTWPG3738-13-69 18:46:00 Test Item Value Reference Range Interpretation Comments Potassium Lvl (test code = Potassium 4.2 3.5-5.1 Lvl) [facility] HospitalWlhvhwlFMKVIHSGHDIV7173-64-99 18:46:00 Test Item Value Reference Range Interpretation Comments Sodium Lvl (test code = Sodium Lvl) 139 135-145 [facility] HospitalXtgcouwPAHAIEDGCFXI1283-81-45 18:46:00 Test Item Value Reference Range Interpretation Comments CO2 (test code = CO2) 24 24-32 [facility] HospitalXbyjeceJJPGVFPPQLUV6159-29-13 18:46:00 Test Item Value Reference Range Interpretation Comments BUN (test code = BUN) 16 7-22 [facility] HospitalOqalwoaJYQVVKOBNUOQ6952-58-71 18:46:00 Test Item Value Reference Range Interpretation Comments Glucose Lvl (test code = Glucose Lvl) 141 70-99 [facility] HospitalZzujhreWARUYKMPJUCX5659-10-10 18:46:00 Test Item Value Reference Range Interpretation Comments Albumin Lvl (test code = Albumin Lvl) 3.6 3.5-5.0 [facility] HospitalQhrdloaKSDAAXLVGZIR2100-27-55 18:46:00 Test Item Value Reference Range Interpretation Comments Alk Phos (test code = Alk Phos) 65 39-136 [facility] HospitalBzybheeULYGMRVURQRG8330-82-69 18:46:00 Test Item Value Reference Range Interpretation Comments Bili Total (test code = Bili Total) 0.3 0.2-1.3 [facility] HospitalVjiyrifICUXXZWSCBYT8958-24-00 18:46:00 Test Item Value Reference Range Interpretation Comments ALT (test code = ALT) 100 See_Comment [Auto mated message] The system which ge nerated this result transmit elizabeth reference range : <=65. The reference range was not used to interpr et this result as margaret l/abnormal. [facility] HospitalYznpjrhFWKKOPKIPVUT4530-11-55 18:46:00 Test Item Value Reference Range Interpretation Comments AST (test code = AST) 53 See_Comment [Auto mated message] The system which ge nerated this result transmit elizabeth reference range : <=37. The reference range was not used to interpr et this result as margaret l/abnormal. [facility] HospitalVqbihxxOUHBNKCGBPHF4422-78-23 18:46:00 Test Item Value Reference Range Interpretation Comments Total Protein (test code = Total 6.9 6.4-8.4 Protein) [facility] DallasIurunplLSEOUBKZVP6614-46-12 18:46:00 Test Item Value Reference Range Interpretation Comments Eosinophils (test code = 4.2 See_Comment [A utomated message] The Eosinophils) system which ge nerated this result tra nsmitted reference range : <=4.0. The reference r mitra was not used to int erpret this result as normal/abnormal . [facility] DallasYggnsjmLYXODYIXMD0334-06-58 18:46:00 Test Item Value Reference Range Interpretation Comments Segs (test code = Segs) 56.4 45.0-75.0 [facility] DallasZjjopiuMUXBBLKIOP1029-26-90 18:46:00 Test Item Value Reference Range Interpretation Comments Monocytes (test code = Monocytes) 10.3 2.0-12.0 [facility] DallasYobhlzrPTCWTZMKZR1840-59-51 18:46:00 Test Item Value Reference Range Interpretation Comments Lymphocytes (test code = Lymphocytes) 28.0 20.0-40.0 [facility] DallasVazujhjEOKPDDZVTQ4750-78-70 18:46:00 Test Item Value Reference Range Interpretation Comments Monocytes # (test code 0.5 See_Comment [Aut omated message] The = Monocytes #) system which generated this result tra nsmitted reference range : <=0.8. The reference r mitra was not used to int erpret this result as normal/abnormal . [facility] DallasEolzjipLIVGVPBAXP5783-54-02 18:46:00 Test Item Value Reference Range Interpretation Comments Basophils (test code = 1.1 See_Comment [Aut omated message] The Basophils) system which ge nerated this result tra nsmitted reference range : <=1.0. The reference r mitra was not used to int erpret this result as normal/abnormal . [facility] DallasPvotvzhWUFQLJYHUE5273-95-35 18:46:00 Test Item Value Reference Range Interpretation Comments Lymphocytes # (test code = Lymphocytes 1.5 1.0-5.5 #) [facility] DallasDpnkulyQBXEWKQQUC2371-78-56 18:46:00 Test Item Value Reference Range Interpretation Comments Segs-Bands # (test code = Segs-Bands #) 2.9 1.5-8.1 [facility] DallasUupawirEOXBYBSEIJ9311-43-08 18:46:00 Test Item Value Reference Range Interpretation Comments Eosinophils # (test code 0.2 See_Comment [A utomated message] The = Eosinophils #) system whic h generated this result tra nsmitted reference range : <=0.5. The reference r mitra was not used to int erpret this result as normal/abnormal . [facility] DallasWsubuzbNWSSRYHYBC5464-37-91 18:46:00 Test Item Value Reference Range Interpretation Comments Basophils # (test code 0.1 See_Comment [Aut omated message] The = Basophils #) system which generated this result tra nsmitted reference range : <=0.2. The reference r mitra was not used to int erpret this result as normal/abnormal . [facility] DallasQlxxwitUEPMZKERJL7422-37-70 18:46:00 Test Item Value Reference Range Interpretation Comments PT (test code = PT) 11.2 s 12.0-14.7 [facility] DallasOjcuivdLQFTFDOAIJ3413-10-52 18:46:00 Test Item Value Reference Range Interpretation Comments INR (test code = INR) 0.82 0.85-1.17 [facility] DallasBikqzkzQUDVYIUYJO3176-53-38 18:46:00 Test Item Value Reference Range Interpretation Comments PTT (test code = PTT) 28.6 s 22.9-35.8 [facility] DallasHfdtizgLPYIIFXRXY5906-59-44 18:46:00 Test Item Value Reference Range Interpretation Comments MPV (test code = MPV) 8.1 7.4-10.4 [facility] DallasSpdywesADHTKZYWSO1189-96-02 18:46:00 Test Item Value Reference Range Interpretation Comments Platelet (test code = Platelet) 301 133-450 [facility] DallasLanyebjLPNOOEUMVQ6041-69-64 18:46:00 Test Item Value Reference Range Interpretation Comments RDW (test code = RDW) 14.5 11.5-14.5 [facility] DallasBmfodeaALYQCBFHMY2468-65-83 18:46:00 Test Item Value Reference Range Interpretation Comments RBC (test code = RBC) 4.84 4.70-6.10 [facility] DallasXiajfujSPSNDZWOMN4444-82-06 18:46:00 Test Item Value Reference Range Interpretation Comments Hgb (test code = Hgb) 14.4 14.0-18.0 [facility]ytdexxGVLRKDANZU7339-33-91 18:46:00 Test Item Value Reference Range Interpretation Comments WBC (test code = WBC) 5.2 3.7-10.4 [facility] JvumsajSQIHVHAJGW2925-23-17 18:46:00 Test Item Value Reference Range Interpretation Comments MCH (test code = MCH) 29.8 pg 27.0-31.0 [facility] HospitalIhjygefPQIHYHSVTK8627-80-90 18:46:00 Test Item Value Reference Range Interpretation Comments MCV (test code = MCV) 92.0 80.0-94.0 [facility]landsPmqpzlxPSKCRAWQXI1110-35-68 18:46:00 Test Item Value Reference Range Interpretation Comments Hct (test code = Hct) 44.5 42.0-54.0 [facility] HospitalEdngvsgSJINCDHVJF9307-23-60 18:46:00 Test Item Value Reference Range Interpretation Comments MCHC (test code = MCHC) 32.4 32.0-36.0 [facility]landsBfujmdqYZJYAWXPJN2075-27-94 18:46:00 Test Item Value Reference Range Interpretation Comments [place]-Hep C Ab (test Negative *NA*(07/22/14 code = [place]-Hep C 1:46 PM) Ab) [facility] AND [id number] 18:46:00 Test Item Value Reference Range Interpretation Comments UA Urobilinogen (test code = UA <=1.0 mg/dL 0.1-1.0 Urobilinogen) [facility] AND [id number] 18:46:00 Test Item Value Reference Range Interpretation Comments UA Sq Epi (test code = UA Sq Epi) None Seen [facility] AND [id number] 18:46:00 Test Item Value Reference Range Interpretation Comments UA Leuk Est (test Negative (07/22/14 1:46 code = UA Leuk Est) PM) [facility] [id number] 18:46:00 Test Item Value Reference Range Interpretation Comments UA Nitrite (test code Negative (07/22/14 1:46 = UA Nitrite) PM) [facility] [id number] 18:46:00 Test Item Value Reference Range Interpretation Comments UA Blood (test code = Negative (07/22/14 1:46 UA Blood) PM) [facility] [id number] 18:46:00 Test Item Value Reference Range Interpretation Comments UA Ketones (test code = UA Negative mg/dL Ketones) [facility] AND UWWMV2029-04-53 18:46:00 Test Item Value Reference Range Interpretation Comments UA Bili (test code = Negative *NA*(07/22/14 UA Bili) 1:46 PM) [facility] AND [id number] 18:46:00 Test Item Value Reference Range Interpretation Comments UA Bacteria (test code = UA Occasional /HPF Bacteria) [facility] AND [id number] 18:46:00 Test Item Value Reference Range Interpretation Comments UA RBC (test code = no gt See_Comment [Automa elizabeth message] The UA RBC) system which ge nerated this result transmit elizabeth reference range : <=2. The reference range was not used to interpr et this result as margaret l/abnormal. [facility] AND [id number] 18:46:00 Test Item Value Reference Range Interpretation Comments UA WBC (test code = 1 See_Comment [Automa elizabeth message] The UA WBC) system which ge nerated this result transmit elizabeth reference range : <=5. The reference range was not used to interpr et this result as margaret l/abnormal. [facility] AND [id number] 18:46:00 Test Item Value Reference Range Interpretation Comments UA Glucose (test code = UA Glucose) 30 mg/dL [facility] AND [id number] 18:46:00 Test Item Value Reference Range Interpretation Comments UA Protein (test code = UA Negative mg/dL Protein) [facility] AND [id number] 18:46:00 Test Item Value Reference Range Interpretation Comments UA pH (test code = UA pH) 6.5 5.0-8.0 [facility] AND [id number] 18:46:00 Test Item Value Reference Range Interpretation Comments UA Turbidity (test code = Clear (07/22/14 1:46 UA Turbidity) PM) [facility] AND [id number] 18:46:00 Test Item Value Reference Range Interpretation Comments UA Spec Grav (test code = UA Spec Grav) 1.010 [facility] AND [id number] 18:46:00 Test Item Value Reference Range Interpretation Comments UA Color (test code = Light Yellow UA Color) *NA*(07/22/14 1:46 PM) [facility]2015-06-09 18:46:00 Test Item Value Reference Range Interpretation Comments Magnesium Lvl (test code = Magnesium 1.8 1.8-2.4 Lvl) [facility] HospitalSsefxekTNWGQFRRCXVP5411-16-30 18:46:00 Test Item Value Reference Range Interpretation Comments AGAP (test code = AGAP) 13.2 10.0-20.0 [facility] HospitalVxbzhfhEVLJHTHJLBRZ2720-09-41 18:46:00 Test Item Value Reference Range Interpretation Comments B/C Ratio (test code = B/C Ratio) 18 6-25 [facility] HospitalXmhqncaIXLLEWIPCLPD0353-95-99 18:46:00 Test Item Value Reference Range Interpretation Comments A/G Ratio (test code = A/G Ratio) 1.1 0.7-1.6 [facility] HospitalEvjwggxFOSYLQLZQUHV7964-24-16 18:46:00 Test Item Value Reference Range Interpretation Comments Globulin (test code = Globulin) 3.3 2.0-4.0 [facility] HospitalUwnsolvCHSRGXEHIJFL9309-44-01 18:46:00 Test Item Value Reference Range Interpretation Comments eGFR (test code = eGFR) 99 [facility] HospitalXvcwdtePFFQXEPXVHCL2436-30-52 18:46:00 Test Item Value Reference Range Interpretation Comments Calcium Lvl (test code = Calcium Lvl) 9.0 8.5-10.5 [facility] HospitalEiuegupDAUWCTZBCEGW0566-20-15 18:46:00 Test Item Value Reference Range Interpretation Comments Chloride Lvl (test code = Chloride Lvl) 106 95-109 [facility] HospitalRzpaqzcCBIZBUCEKTJK5297-74-90 18:46:00 Test Item Value Reference Range Interpretation Comments Creatinine Lvl (test code = Creatinine 0.9 0.5-1.4 Lvl) [facility] HospitalIoffkcsVTKUYNFYBVYH9467-64-74 18:46:00 Test Item Value Reference Range Interpretation Comments Potassium Lvl (test code = Potassium 4.2 3.5-5.1 Lvl) [facility] HospitalMzmtftfWSQCMFELXLZL4020-26-78 18:46:00 Test Item Value Reference Range Interpretation Comments Sodium Lvl (test code = Sodium Lvl) 139 135-145 [facility] HospitalApvwogfNGGMENGZXMMO9198-90-34 18:46:00 Test Item Value Reference Range Interpretation Comments CO2 (test code = CO2) 24 24-32 [facility] HospitalRyublfxLWHVZGEZXIDX6013-41-87 18:46:00 Test Item Value Reference Range Interpretation Comments BUN (test code = BUN) 16 7-22 [facility] HospitalRrdyyflJHPQKJTDGKVD4981-32-23 18:46:00 Test Item Value Reference Range Interpretation Comments Glucose Lvl (test code = Glucose Lvl) 141 70-99 [facility] HospitalSpozzyhAPXOCSTSTFGY6158-63-29 18:46:00 Test Item Value Reference Range Interpretation Comments Albumin Lvl (test code = Albumin Lvl) 3.6 3.5-5.0 [facility] HospitalVutmcscKWGOHUMNUQBX7026-73-54 18:46:00 Test Item Value Reference Range Interpretation Comments Alk Phos (test code = Alk Phos) 65 39-136 [facility] HospitalJrfrwgvMONZGZCOAVJD0609-91-68 18:46:00 Test Item Value Reference Range Interpretation Comments Bili Total (test code = Bili Total) 0.3 0.2-1.3 [facility] HospitalAtcsavpLCKDBTAZDBRS1107-21-43 18:46:00 Test Item Value Reference Range Interpretation Comments ALT (test code = ALT) 100 See_Comment [Auto mated message] The system which ge nerated this result transmit elizabeth reference range : <=65. The reference range was not used to interpr et this result as margaret l/abnormal. [facility] HospitalJnxxbynAVZWUCTQWXUM0920-43-47 18:46:00 Test Item Value Reference Range Interpretation Comments AST (test code = AST) 53 See_Comment [Auto mated message] The system which ge nerated this result transmit elizabeth reference range : <=37. The reference range was not used to interpr et this result as margaret l/abnormal. [facility] HospitalEsadwlzWBRNDFJOUZUC2486-45-14 18:46:00 Test Item Value Reference Range Interpretation Comments Total Protein (test code = Total 6.9 6.4-8.4 Protein) [facility] DallasMnlxsuhIXSIESCKDO8179-00-75 18:46:00 Test Item Value Reference Range Interpretation Comments Eosinophils (test code = 4.2 See_Comment [A utomated message] The Eosinophils) system which ge nerated this result tra nsmitted reference range : <=4.0. The reference r mitra was not used to int erpret this result as normal/abnormal . [place] [id number] 18:46:00 Test Item Value Reference Range Interpretation Comments Segs (test code = Segs) 56.4 45.0-75.0 [facility] DallasWhpgfywCYDUZRGTVS9519-10-10 18:46:00 Test Item Value Reference Range Interpretation Comments Monocytes (test code = Monocytes) 10.3 2.0-12.0 [facility] DallasUbbvcttJHZTQFNTSJ7386-23-35 18:46:00 Test Item Value Reference Range Interpretation Comments Lymphocytes (test code = Lymphocytes) 28.0 20.0-40.0 [facility] DallasNoqibrqRSOBJAHURX6869-55-79 18:46:00 Test Item Value Reference Range Interpretation Comments Monocytes # (test code 0.5 See_Comment [Aut omated message] The = Monocytes #) system which generated this result tra nsmitted reference range : <=0.8. The reference r mitra was not used to int erpret this result as normal/abnormal . [facility] DallasHwogixqQZKKXARGPW2332-37-73 18:46:00 Test Item Value Reference Range Interpretation Comments Basophils (test code = 1.1 See_Comment [Aut omated message] The Basophils) system which ge nerated this result tra nsmitted reference range : <=1.0. The reference r mitra was not used to int erpret this result as normal/abnormal . [facility] DallasBnpceguXLQJLNGVJR3422-50-82 18:46:00 Test Item Value Reference Range Interpretation Comments Lymphocytes # (test code = Lymphocytes 1.5 1.0-5.5 #) [facility] DallasMxapkatBRZCRLGZWN4091-16-29 18:46:00 Test Item Value Reference Range Interpretation Comments Segs-Bands # (test code = Segs-Bands #) 2.9 1.5-8.1 [facility] DallasBjgwtyuAFSFDTWIJJ4478-42-44 18:46:00 Test Item Value Reference Range Interpretation Comments Eosinophils # (test code 0.2 See_Comment [A utomated message] The = Eosinophils #) system whic h generated this result tra nsmitted reference range : <=0.5. The reference r mitra was not used to int erpret this result as normal/abnormal . [facility] DallasRhqhzirFUZUVUDAZO1369-38-40 18:46:00 Test Item Value Reference Range Interpretation Comments Basophils # (test code 0.1 See_Comment [Aut omated message] The = Basophils #) system which generated this result tra nsmitted reference range : <=0.2. The reference r mitra was not used to int erpret this result as normal/abnormal . [facility] DallasDktnijgZAEKZDIKLU0277-42-06 18:46:00 Test Item Value Reference Range Interpretation Comments PT (test code = PT) 11.2 s 12.0-14.7 [facility] DallasLbqskxpWUJECRTDZZ8357-68-36 18:46:00 Test Item Value Reference Range Interpretation Comments INR (test code = INR) 0.82 0.85-1.17 [facility] DallasIuyaoqaOKGDKIQBWI2396-82-89 18:46:00 Test Item Value Reference Range Interpretation Comments PTT (test code = PTT) 28.6 s 22.9-35.8 [facility] DallasIoundcnRTZINRFSNL6563-24-39 18:46:00 Test Item Value Reference Range Interpretation Comments MPV (test code = MPV) 8.1 7.4-10.4 [place] 409035-06-09 18:46:00 Test Item Value Reference Range Interpretation Comments Platelet (test code = Platelet) 301 133-450 [facility] DallasQseepzpUNXCPGZCKT2448-28-19 18:46:00 Test Item Value Reference Range Interpretation Comments RDW (test code = RDW) 14.5 11.5-14.5 [facility] DallasDunjuqfAUCTQKZAJT7457-17-53 18:46:00 Test Item Value Reference Range Interpretation Comments RBC (test code = RBC) 4.84 4.70-6.10 [facility] DallasUxrvjlnYJXDNLNJXK4116-44-73 18:46:00 Test Item Value Reference Range Interpretation Comments Hgb (test code = Hgb) 14.4 14.0-18.0 [facility] DallasDfejmayXSCTZMVYHZ5399-81-48 18:46:00 Test Item Value Reference Range Interpretation Comments WBC (test code = WBC) 5.2 3.7-10.4 [facility] DallasGjyinhyYXEZWTJEBK2102-80-95 18:46:00 Test Item Value Reference Range Interpretation Comments MCH (test code = MCH) 29.8 pg 27.0-31.0 [facility] DallasBqwetgnOLQLKIZGFF6821-24-44 18:46:00 Test Item Value Reference Range Interpretation Comments MCV (test code = MCV) 92.0 80.0-94.0 [facility] DallasIrewvviTBCDQDIDPN2423-80-96 18:46:00 Test Item Value Reference Range Interpretation Comments Hct (test code = Hct) 44.5 42.0-54.0 [facility]landsVtzumpoJGTVOQPRMD5978-23-11 18:46:00 Test Item Value Reference Range Interpretation Comments MCHC (test code = MCHC) 32.4 32.0-36.0 [facility]ArbinnwOZRSKFKMZW7992-34-47 18:46:00 Test Item Value Reference Range Interpretation Comments [place]-Hep C Ab (test Negative *NA*(07/22/14 code = [place]-Hep C 1:46 PM) Ab) [facility] AND [id number] 18:46:00 Test Item Value Reference Range Interpretation Comments UA Urobilinogen (test code = UA <=1.0 mg/dL 0.1-1.0 Urobilinogen) [facility] AND [id number] 18:46:00 Test Item Value Reference Range Interpretation Comments UA Sq Epi (test code = UA Sq Epi) None Seen [facility] AND [id number] 18:46:00 Test Item Value Reference Range Interpretation Comments UA Leuk Est (test Negative (07/22/14 1:46 code = UA Leuk Est) PM) [facility] AND [id number] 18:46:00 Test Item Value Reference Range Interpretation Comments UA Nitrite (test code Negative (07/22/14 1:46 = UA Nitrite) PM) [facility] AND [id number] 18:46:00 Test Item Value Reference Range Interpretation Comments UA Blood (test code = Negative (07/22/14 1:46 UA Blood) PM) [facility] AND [id number] 18:46:00 Test Item Value Reference Range Interpretation Comments UA Ketones (test code = UA Negative mg/dL Ketones) [facility] AND [id number] 18:46:00 Test Item Value Reference Range Interpretation Comments UA Bili (test code = Negative *NA*(07/22/14 UA Bili) 1:46 PM) [facility] AND WQUHC1954-07-02 18:46:00 Test Item Value Reference Range Interpretation Comments UA Bacteria (test code = UA Occasional /HPF Bacteria) [facility] AND [id number] 18:46:00 Test Item Value Reference Range Interpretation Comments UA RBC (test code = no gt See_Comment [Automa elizabeth message] The UA RBC) system which ge nerated this result transmit elizabeth reference range : <=2. The reference range was not used to interpr et this result as margaret l/abnormal. [facility] [id number] 18:46:00 Test Item Value Reference Range Interpretation Comments UA WBC (test code = 1 See_Comment [Automa elizabeth message] The UA WBC) system which ge nerated this result transmit elizabeth reference range : <=5. The reference range was not used to interpr et this result as margaret l/abnormal. [facility] [id number] 18:46:00 Test Item Value Reference Range Interpretation Comments UA Glucose (test code = UA Glucose) 30 mg/dL [facility] [id number] 18:46:00 Test Item Value Reference Range Interpretation Comments UA Protein (test code = UA Negative mg/dL Protein) [facility] AND [id number] 18:46:00 Test Item Value Reference Range Interpretation Comments UA pH (test code = UA pH) 6.5 5.0-8.0 [facility] AND [id number] 18:46:00 Test Item Value Reference Range Interpretation Comments UA Turbidity (test code = Clear (07/22/14 1:46 UA Turbidity) PM) [facility] AND [id number] 18:46:00 Test Item Value Reference Range Interpretation Comments UA Spec Grav (test code = UA Spec Grav) 1.010 [facility] AND [id number] 18:46:00 Test Item Value Reference Range Interpretation Comments UA Color (test code = Light Yellow UA Color) *NA*(07/22/14 1:46 PM) [facility] [id number] 18:46:00 Test Item Value Reference Range Interpretation Comments Magnesium Lvl (test code = Magnesium 1.8 1.8-2.4 Lvl) [facility][id number] 18:46:00 Test Item Value Reference Range Interpretation Comments AGAP (test code = AGAP) 13.2 10.0-20.0 [facility]QVLMUXCRTDSI3639-79-97 18:46:00 Test Item Value Reference Range Interpretation Comments B/C Ratio (test code = B/C Ratio) 18 6-25 [facility]ZnejlwkRWGBBBTSEXTC2217-82-14 18:46:00 Test Item Value Reference Range Interpretation Comments A/G Ratio (test code = A/G Ratio) 1.1 0.7-1.6 [facility] HospitalHamvvjvVYLGWYENDZCS1870-55-79 18:46:00 Test Item Value Reference Range Interpretation Comments Globulin (test code = Globulin) 3.3 2.0-4.0 [facility] HospitalTvnchevUEGUCSQVVLCN2190-27-69 18:46:00 Test Item Value Reference Range Interpretation Comments eGFR (test code = eGFR) 99 [facility] HospitalOxvvddrHMQDJRKOBBGS4636-64-78 18:46:00 Test Item Value Reference Range Interpretation Comments Calcium Lvl (test code = Calcium Lvl) 9.0 8.5-10.5 [facility] HospitalQrwqrelOJUZMUQIWCFR4528-71-02 18:46:00 Test Item Value Reference Range Interpretation Comments Chloride Lvl (test code = Chloride Lvl) 106 95-109 [facility] HospitalWfybuwiSHWXOSSFFGQM1888-32-70 18:46:00 Test Item Value Reference Range Interpretation Comments Creatinine Lvl (test code = Creatinine 0.9 0.5-1.4 Lvl) [facility] HospitalXkqkkjzOVGDRACLEHUY9257-79-01 18:46:00 Test Item Value Reference Range Interpretation Comments Potassium Lvl (test code = Potassium 4.2 3.5-5.1 Lvl) [facility] HospitalWtseoziFOYAHCTVMNHQ0843-05-82 18:46:00 Test Item Value Reference Range Interpretation Comments Sodium Lvl (test code = Sodium Lvl) 139 135-145 [facility] HospitalIrolgvjNDTQIIRHULXS0530-01-28 18:46:00 Test Item Value Reference Range Interpretation Comments CO2 (test code = CO2) 24 24-32 [facility] HospitalNrqundcIWGOKLDBICGJ6863-39-35 18:46:00 Test Item Value Reference Range Interpretation Comments BUN (test code = BUN) 16 7-22 [facility] HospitalPbaqqrpGSKOHKAUKXZK9715-86-30 18:46:00 Test Item Value Reference Range Interpretation Comments Glucose Lvl (test code = Glucose Lvl) 141 70-99 [facility] HospitalMdokrkaGIIKJHFZCIGK1820-60-85 18:46:00 Test Item Value Reference Range Interpretation Comments Albumin Lvl (test code = Albumin Lvl) 3.6 3.5-5.0 [facility] HospitalNefpzzcMRHVYDFWSWPD0051-49-79 18:46:00 Test Item Value Reference Range Interpretation Comments Alk Phos (test code = Alk Phos) 65 39-136 [facility] HospitalEhbpukvMYAGOVPHJIJC3683-93-86 18:46:00 Test Item Value Reference Range Interpretation Comments Bili Total (test code = Bili Total) 0.3 0.2-1.3 [facility] HospitalNmzfhpjWOKTWUDJIISI9443-19-66 18:46:00 Test Item Value Reference Range Interpretation Comments ALT (test code = ALT) 100 See_Comment [Auto mated message] The system which ge nerated this result transmit elizabeth reference range : <=65. The reference range was not used to interpr et this result as margaret l/abnormal. [facility] HospitalSlyrkzxVWVXGQNAEFYR7720-73-68 18:46:00 Test Item Value Reference Range Interpretation Comments AST (test code = AST) 53 See_Comment [Auto mated message] The system which ge nerated this result transmit elizabeth reference range : <=37. The reference range was not used to interpr et this result as margaret l/abnormal. [facility] HospitalYzeygvuEBPWKIANIPDR4983-75-15 18:46:00 Test Item Value Reference Range Interpretation Comments Total Protein (test code = Total 6.9 6.4-8.4 Protein) [facility] DallasQldnzupGDVZPLJJJC6977-94-86 18:46:00 Test Item Value Reference Range Interpretation Comments Eosinophils (test code = 4.2 See_Comment [A utomated message] The Eosinophils) system which ge nerated this result tra nsmitted reference range : <=4.0. The reference r mitra was not used to int erpret this result as normal/abnormal . [facility] DallasScpsvvuCWHDBOBZLA5915-82-71 18:46:00 Test Item Value Reference Range Interpretation Comments Segs (test code = Segs) 56.4 45.0-75.0 [facility] DallasWdadcfhITXLAXJCWR6650-08-68 18:46:00 Test Item Value Reference Range Interpretation Comments Monocytes (test code = Monocytes) 10.3 2.0-12.0 [facility] DallasTnopicnGFKGNDAXWJ8149-68-00 18:46:00 Test Item Value Reference Range Interpretation Comments Lymphocytes (test code = Lymphocytes) 28.0 20.0-40.0 [facility] DallasZkuppeeQMFIYTEPHQ7138-46-56 18:46:00 Test Item Value Reference Range Interpretation Comments Monocytes # (test code 0.5 See_Comment [Aut omated message] The = Monocytes #) system which generated this result tra nsmitted reference range : <=0.8. The reference r mitra was not used to int erpret this result as normal/abnormal . [facility] DallasBdexznnAOLCISBIRL1929-63-85 18:46:00 Test Item Value Reference Range Interpretation Comments Basophils (test code = 1.1 See_Comment [Aut omated message] The Basophils) system which ge nerated this result tra nsmitted reference range : <=1.0. The reference r mitra was not used to int erpret this result as normal/abnormal . [facility] DallasRuilrpzEHVRUMTDAK6338-76-02 18:46:00 Test Item Value Reference Range Interpretation Comments Lymphocytes # (test code = Lymphocytes 1.5 1.0-5.5 #) [facility] DallasTwcqlszNWYPKDTKAX2821-59-00 18:46:00 Test Item Value Reference Range Interpretation Comments Segs-Bands # (test code = Segs-Bands #) 2.9 1.5-8.1 [facility] DallasZibrxyiFDDCVZFCOL5229-58-92 18:46:00 Test Item Value Reference Range Interpretation Comments Eosinophils # (test code 0.2 See_Comment [A utomated message] The = Eosinophils #) system whic h generated this result tra nsmitted reference range : <=0.5. The reference r mitra was not used to int erpret this result as normal/abnormal . [facility] DallasYpiaurjSAZCMCIJQQ9418-91-71 18:46:00 Test Item Value Reference Range Interpretation Comments Basophils # (test code 0.1 See_Comment [Aut omated message] The = Basophils #) system which generated this result tra nsmitted reference range : <=0.2. The reference r mitra was not used to int erpret this result as normal/abnormal . [facility] DallasCmclynuBOGRGAOJWX9853-30-16 18:46:00 Test Item Value Reference Range Interpretation Comments PT (test code = PT) 11.2 s 12.0-14.7 [facility] DallasNbtpvwvBTNMUZSDGY9125-01-03 18:46:00 Test Item Value Reference Range Interpretation Comments INR (test code = INR) 0.82 0.85-1.17 [facility] DallasZkfqsonLDDMTSEAUH5179-58-34 18:46:00 Test Item Value Reference Range Interpretation Comments PTT (test code = PTT) 28.6 s 22.9-35.8 [facility]dm[facility]cnxHFICQHMRPO8444-20-[facility] 18:46:00 Test Item Value Reference Range Interpretation Comments MPV (test code = MPV) 8.1 7.4-10.4 [facility] HospitalCwvzaonCQTZNXUEVI5514-39-44 18:46:00 Test Item Value Reference Range Interpretation Comments Platelet (test code = Platelet) 301 133-450 [facility] HospitalFwefkblXLJAEJSVRB1873-78-59 18:46:00 Test Item Value Reference Range Interpretation Comments RDW (test code = RDW) 14.5 11.5-14.5 [facility] HospitalIbhanwcZVXFEDXUGB6700-57-56 18:46:00 Test Item Value Reference Range Interpretation Comments RBC (test code = RBC) 4.84 4.70-6.10 [facility] HospitalAkqgnkwOLTDHUDBDG1611-89-81 18:46:00 Test Item Value Reference Range Interpretation Comments Hgb (test code = Hgb) 14.4 14.0-18.0 [facility]IkbcndxTLGRVTZKVB9658-39-45 18:46:00 Test Item Value Reference Range Interpretation Comments WBC (test code = WBC) 5.2 3.7-10.4 [facility] HospitalPslknyjUSPFQHRZVQ5078-24-43 18:46:00 Test Item Value Reference Range Interpretation Comments MCH (test code = MCH) 29.8 pg 27.0-31.0 [facility] HospitalBnmcsuiQUXKNJLPNR0979-44-81 18:46:00 Test Item Value Reference Range Interpretation Comments MCV (test code = MCV) 92.0 80.0-94.0 [facility]landsGnjiuskZWTPTNPEDJ4339-44-73 18:46:00 Test Item Value Reference Range Interpretation Comments Hct (test code = Hct) 44.5 42.0-54.0 [facility] HospitalHuzyoduVVUJLCDSCO4830-74-42 18:46:00 Test Item Value Reference Range Interpretation Comments MCHC (test code = MCHC) 32.4 32.0-36.0 [facility]landsCeofqmcYZYSXLGBEA5815-43-38 18:46:00 Test Item Value Reference Range Interpretation Comments [place]-Hep C Ab (test Negative *NA*(07/22/14 code = [place]-Hep C 1:46 PM) Ab) [facility]2015-06-09 18:46:00 Test Item Value Reference Range Interpretation Comments UA Urobilinogen (test code = UA <=1.0 mg/dL 0.1-1.0 Urobilinogen) [facility] AND [id number] 18:46:00 Test Item Value Reference Range Interpretation Comments UA Sq Epi (test code = UA Sq Epi) None Seen [facility] AND [id number] 18:46:00 Test Item Value Reference Range Interpretation Comments UA Leuk Est (test Negative (07/22/14 1:46 code = UA Leuk Est) PM) [facility] AND [id number] 18:46:00 Test Item Value Reference Range Interpretation Comments UA Nitrite (test code Negative (07/22/14 1:46 = UA Nitrite) PM) [facility] AND [id number] 18:46:00 Test Item Value Reference Range Interpretation Comments UA Blood (test code = Negative (07/22/14 1:46 UA Blood) PM) [facility] AND [id number] 18:46:00 Test Item Value Reference Range Interpretation Comments UA Ketones (test code = UA Negative mg/dL Ketones) [facility] AND [id number] 18:46:00 Test Item Value Reference Range Interpretation Comments UA Bili (test code = Negative *NA*(07/22/14 UA Bili) 1:46 PM) [facility] AND [id number] 18:46:00 Test Item Value Reference Range Interpretation Comments UA Bacteria (test code = UA Occasional /HPF Bacteria) [facility] AND [id number] 18:46:00 Test Item Value Reference Range Interpretation Comments UA RBC (test code = no gt See_Comment [Automa elizabeth message] The UA RBC) system which ge nerated this result transmit elizabeth reference range : <=2. The reference range was not used to interpr et this result as margaret l/abnormal. [facility] AND [id number] 18:46:00 Test Item Value Reference Range Interpretation Comments UA WBC (test code = 1 See_Comment [Automa elizabeth message] The UA WBC) system which ge nerated this result transmit elizabeth reference range : <=5. The reference range was not used to interpr et this result as margaret l/abnormal. [facility] AND [id number] 18:46:00 Test Item Value Reference Range Interpretation Comments UA Glucose (test code = UA Glucose) 30 mg/dL [facility] AND [id number] 18:46:00 Test Item Value Reference Range Interpretation Comments UA Protein (test code = UA Negative mg/dL Protein) [facility] AND [id number] 18:46:00 Test Item Value Reference Range Interpretation Comments UA pH (test code = UA pH) 6.5 5.0-8.0 [facility] AND [id number] 18:46:00 Test Item Value Reference Range Interpretation Comments UA Turbidity (test code = Clear (07/22/14 1:46 UA Turbidity) PM) [facility] AND [id number] 18:46:00 Test Item Value Reference Range Interpretation Comments UA Spec Grav (test code = UA Spec Grav) 1.010 [facility] AND [id number] 18:46:00 Test Item Value Reference Range Interpretation Comments UA Color (test code = Light Yellow UA Color) *NA*(07/22/14 1:46 PM) [facility] [id number] 18:46:00 Test Item Value Reference Range Interpretation Comments Magnesium Lvl (test code = Magnesium 1.8 1.8-2.4 Lvl) [facility] HospitalHzuqsubQLSOBFOKELLK4363-38-17 18:46:00 Test Item Value Reference Range Interpretation Comments AGAP (test code = AGAP) 13.2 10.0-20.0 [facility] HospitalWuztqnmDBSMQGFXEAYM0930-46-75 18:46:00 Test Item Value Reference Range Interpretation Comments B/C Ratio (test code = B/C Ratio) 18 6-25 [facility] HospitalRkzisqkZTPMPWFOKDBP4689-71-34 18:46:00 Test Item Value Reference Range Interpretation Comments A/G Ratio (test code = A/G Ratio) 1.1 0.7-1.6 [facility] HospitalQetokidMQZXTPRISYJR7262-22-67 18:46:00 Test Item Value Reference Range Interpretation Comments Globulin (test code = Globulin) 3.3 2.0-4.0 [facility] HospitalXyvtigcSBQQGRSWKNTJ4273-79-27 18:46:00 Test Item Value Reference Range Interpretation Comments eGFR (test code = eGFR) 99 [facility] HospitalLiuvrscXWPRIUIRAEVT5271-40-27 18:46:00 Test Item Value Reference Range Interpretation Comments Calcium Lvl (test code = Calcium Lvl) 9.0 8.5-10.5 [facility] HospitalBrklacuUJAYVCMUZFZY8894-14-29 18:46:00 Test Item Value Reference Range Interpretation Comments Chloride Lvl (test code = Chloride Lvl) 106 95-109 [facility] HospitalXiscrasREFKRAGFMREN6121-26-42 18:46:00 Test Item Value Reference Range Interpretation Comments Creatinine Lvl (test code = Creatinine 0.9 0.5-1.4 Lvl) [facility] HospitalTrhzumeEYQJGUJDPLVA1611-51-58 18:46:00 Test Item Value Reference Range Interpretation Comments Potassium Lvl (test code = Potassium 4.2 3.5-5.1 Lvl) [facility] HospitalDfapxiaPIZURPPZESOY9287-77-96 18:46:00 Test Item Value Reference Range Interpretation Comments Sodium Lvl (test code = Sodium Lvl) 139 135-145 [facility] HospitalLfrcmilUVDFRACLSUGO7010-79-56 18:46:00 Test Item Value Reference Range Interpretation Comments CO2 (test code = CO2) 24 24-32 [facility] HospitalBtcxbiyQATTDERHFAZE4561-54-71 18:46:00 Test Item Value Reference Range Interpretation Comments BUN (test code = BUN) 16 7-22 [facility] HospitalOltrrpbUUUGRYIAMWVZ5042-90-87 18:46:00 Test Item Value Reference Range Interpretation Comments Glucose Lvl (test code = Glucose Lvl) 141 70-99 [facility] HospitalXaukxwnZBOOXZGJCQRH2554-73-01 18:46:00 Test Item Value Reference Range Interpretation Comments Albumin Lvl (test code = Albumin Lvl) 3.6 3.5-5.0 [facility] HospitalZqgudooBCYFPGZWFAUU5381-37-53 18:46:00 Test Item Value Reference Range Interpretation Comments Alk Phos (test code = Alk Phos) 65 39-136 [facility] HospitalYxwkdrvXYFVDMEQYSOP6869-49-05 18:46:00 Test Item Value Reference Range Interpretation Comments Bili Total (test code = Bili Total) 0.3 0.2-1.3 [facility] HospitalVwykcagLHQQJUVFGFRS2178-48-71 18:46:00 Test Item Value Reference Range Interpretation Comments ALT (test code = ALT) 100 See_Comment [Auto mated message] The system which ge nerated this result transmit elizabeth reference range : <=65. The reference range was not used to interpr et this result as margaret l/abnormal. [facility] HospitalGirhafiZFJLUXCZIFMW4550-41-35 18:46:00 Test Item Value Reference Range Interpretation Comments AST (test code = AST) 53 See_Comment [Auto mated message] The system which ge nerated this result transmit elizabeth reference range : <=37. The reference range was not used to interpr et this result as margaret l/abnormal. [facility] HospitalSynthftRCVOZYYCGAJA6359-28-90 18:46:00 Test Item Value Reference Range Interpretation Comments Total Protein (test code = Total 6.9 6.4-8.4 Protein) [facility] DallasJgfpkllBRSCHVQACI1895-66-48 18:46:00 Test Item Value Reference Range Interpretation Comments Eosinophils (test code = 4.2 See_Comment [A utomated message] The Eosinophils) system which ge nerated this result tra nsmitted reference range : <=4.0. The reference r mitra was not used to int erpret this result as normal/abnormal . [facility] DallasUifugrtXRYZZAQNRQ4563-69-98 18:46:00 Test Item Value Reference Range Interpretation Comments Segs (test code = Segs) 56.4 45.0-75.0 [facility] DallasXkoazubOHZUKIHIEN3897-98-39 18:46:00 Test Item Value Reference Range Interpretation Comments Monocytes (test code = Monocytes) 10.3 2.0-12.0 [facility] DallasZhrzueoXCKTRTUXPV1653-01-71 18:46:00 Test Item Value Reference Range Interpretation Comments Lymphocytes (test code = Lymphocytes) 28.0 20.0-40.0 [facility] DallasCsssujnQOHFBTUZXK5810-11-75 18:46:00 Test Item Value Reference Range Interpretation Comments Monocytes # (test code 0.5 See_Comment [Aut omated message] The = Monocytes #) system which generated this result tra nsmitted reference range : <=0.8. The reference r mitra was not used to int erpret this result as normal/abnormal . [facility] DallasAexmxcwZMLVSVBKIT2164-42-31 18:46:00 Test Item Value Reference Range Interpretation Comments Basophils (test code = 1.1 See_Comment [Aut omated message] The Basophils) system which ge nerated this result tra nsmitted reference range : <=1.0. The reference r mitra was not used to int erpret this result as normal/abnormal . [place] [id number] 18:46:00 Test Item Value Reference Range Interpretation Comments Lymphocytes # (test code = Lymphocytes 1.5 1.0-5.5 #) [facility] DallasApybgzhHGRALOSHVG3866-61-16 18:46:00 Test Item Value Reference Range Interpretation Comments Segs-Bands # (test code = Segs-Bands #) 2.9 1.5-8.1 [facility] DallasEksokvvGFMPAEJGZE6655-70-93 18:46:00 Test Item Value Reference Range Interpretation Comments Eosinophils # (test code 0.2 See_Comment [A utomated message] The = Eosinophils #) system whic h generated this result tra nsmitted reference range : <=0.5. The reference r mitra was not used to int erpret this result as normal/abnormal . [facility] DallasParvchwHWKSVJYMMG4399-53-68 18:46:00 Test Item Value Reference Range Interpretation Comments Basophils # (test code 0.1 See_Comment [Aut omated message] The = Basophils #) system which generated this result tra nsmitted reference range : <=0.2. The reference r mitra was not used to int erpret this result as normal/abnormal . [facility] DallasGbzzrapGEODRVJSJS9377-42-02 18:46:00 Test Item Value Reference Range Interpretation Comments PT (test code = PT) 11.2 s 12.0-14.7 [facility] DallasKbrsjpnDSMAASEQUG3272-11-28 18:46:00 Test Item Value Reference Range Interpretation Comments INR (test code = INR) 0.82 0.85-1.17 [facility] DallasGzboqbmEYYCOXKAWX2882-77-32 18:46:00 Test Item Value Reference Range Interpretation Comments PTT (test code = PTT) 28.6 s 22.9-35.8 [facility] DallasKjyfcpnWTGYGRFUIC0287-04-17 18:46:00 Test Item Value Reference Range Interpretation Comments MPV (test code = MPV) 8.1 7.4-10.4 [facility] DallasDfpvqesSTCEXBSEHF2569-89-96 18:46:00 Test Item Value Reference Range Interpretation Comments Platelet (test code = Platelet) 301 133-450 [facility] DallasHdprigtINJKFLWXCO8648-28-52 18:46:00 Test Item Value Reference Range Interpretation Comments RDW (test code = RDW) 14.5 11.5-14.5 [facility] DallasDcspmxoGXABJWDBSF2307-49-94 18:46:00 Test Item Value Reference Range Interpretation Comments RBC (test code = RBC) 4.84 4.70-6.10 [facility] DallasJbolqgwXXEYSZVDEW1085-73-78 18:46:00 Test Item Value Reference Range Interpretation Comments Hgb (test code = Hgb) 14.4 14.0-18.0 [facility] DallasPjatawrZXZJFOOFMB9922-37-32 18:46:00 Test Item Value Reference Range Interpretation Comments WBC (test code = WBC) 5.2 3.7-10.4 [facility] DallasBqjgfgsUROCLEFSAQ2166-88-12 18:46:00 Test Item Value Reference Range Interpretation Comments MCH (test code = MCH) 29.8 pg 27.0-31.0 [facility] DallasEnklolsLTTGBJIFJZ1380-43-31 18:46:00 Test Item Value Reference Range Interpretation Comments MCV (test code = MCV) 92.0 80.0-94.0 [facility] DallasNinhujkMBQNKPXXPF2553-53-42 18:46:00 Test Item Value Reference Range Interpretation Comments Hct (test code = Hct) 44.5 42.0-54.0 [facility]TiuhmsrGZOPANJHLF6790-66-43 18:46:00 Test Item Value Reference Range Interpretation Comments MCHC (test code = MCHC) 32.4 32.0-36.0 [facility]landsCbfvrytTSIOMYESMG2433-70-28 18:46:00 Test Item Value Reference Range Interpretation Comments [place]-Hep C Ab (test Negative *NA*(07/22/14 code = [place]-Hep C 1:46 PM) Ab) [facility] AND [id number] 18:46:00 Test Item Value Reference Range Interpretation Comments UA Urobilinogen (test code = UA <=1.0 mg/dL 0.1-1.0 Urobilinogen) [facility] AND [id number] 18:46:00 Test Item Value Reference Range Interpretation Comments UA Sq Epi (test code = UA Sq Epi) None Seen [facility] AND [id number] 18:46:00 Test Item Value Reference Range Interpretation Comments UA Leuk Est (test Negative (07/22/14 1:46 code = UA Leuk Est) PM) [facility] AND [id number] 18:46:00 Test Item Value Reference Range Interpretation Comments UA Nitrite (test code Negative (07/22/14 1:46 = UA Nitrite) PM) [facility] AND [id number] 18:46:00 Test Item Value Reference Range Interpretation Comments UA Blood (test code = Negative (07/22/14 1:46 UA Blood) PM) [facility] AND [id number] 18:46:00 Test Item Value Reference Range Interpretation Comments UA Ketones (test code = UA Negative mg/dL Ketones) [facility] AND [id number] 18:46:00 Test Item Value Reference Range Interpretation Comments UA Bili (test code = Negative *NA*(07/22/14 UA Bili) 1:46 PM) [facility] AND [id number] 18:46:00 Test Item Value Reference Range Interpretation Comments UA Bacteria (test code = UA Occasional /HPF Bacteria) [facility] AND [id number] 18:46:00 Test Item Value Reference Range Interpretation Comments UA RBC (test code = no gt See_Comment [Automa elizabeth message] The UA RBC) system which ge nerated this result transmit elizabeth reference range : <=2. The reference range was not used to interpr et this result as margaret l/abnormal. [facility] AND [id number] 18:46:00 Test Item Value Reference Range Interpretation Comments UA WBC (test code = 1 See_Comment [Automa elizabeth message] The UA WBC) system which ge nerated this result transmit elizabeth reference range : <=5. The reference range was not used to interpr et this result as margaret l/abnormal. [facility] AND [id number] 18:46:00 Test Item Value Reference Range Interpretation Comments UA Glucose (test code = UA Glucose) 30 mg/dL [facility] AND [id number] 18:46:00 Test Item Value Reference Range Interpretation Comments UA Protein (test code = UA Negative mg/dL Protein) [facility] AND [id number] 18:46:00 Test Item Value Reference Range Interpretation Comments UA pH (test code = UA pH) 6.5 5.0-8.0 [facility] AND [id number] 18:46:00 Test Item Value Reference Range Interpretation Comments UA Turbidity (test code = Clear (07/22/14 1:46 UA Turbidity) PM) [facility] [id number] 18:46:00 Test Item Value Reference Range Interpretation Comments UA Spec Grav (test code = UA Spec Grav) 1.010 [facility] [id number] 18:46:00 Test Item Value Reference Range Interpretation Comments UA Color (test code = Light Yellow UA Color) *NA*(07/22/14 1:46 PM) [facility]CHE[facility] [id number] 18:46:00 Test Item Value Reference Range Interpretation Comments Magnesium Lvl (test code = Magnesium 1.8 1.8-2.4 Lvl) [facility]owpjjcEWUQZOVJTEVA9122-16-39 18:46:00 Test Item Value Reference Range Interpretation Comments AGAP (test code = AGAP) 13.2 10.0-20.0 [facility]ExjlgsnCRLHQZMBUUDJ0879-69-56 18:46:00 Test Item Value Reference Range Interpretation Comments B/C Ratio (test code = B/C Ratio) 18 6-25 [facility] HospitalFumigegQENGUDYAMCVX7041-78-12 18:46:00 Test Item Value Reference Range Interpretation Comments A/G Ratio (test code = A/G Ratio) 1.1 0.7-1.6 [facility] HospitalEbdeqdpDJQGEKCHMYGW0157-41-54 18:46:00 Test Item Value Reference Range Interpretation Comments Globulin (test code = Globulin) 3.3 2.0-4.0 [facility]PhgaccvHRSPCSKYCEFU1823-03-17 18:46:00 Test Item Value Reference Range Interpretation Comments eGFR (test code = eGFR) 99 [facility] HospitalPiudxqnAHXFCAHHVNFN3549-01-88 18:46:00 Test Item Value Reference Range Interpretation Comments Calcium Lvl (test code = Calcium Lvl) 9.0 8.5-10.5 [facility] HospitalXfjoutjIZTACSMUVIXB2838-92-21 18:46:00 Test Item Value Reference Range Interpretation Comments Chloride Lvl (test code = Chloride Lvl) 106 95-109 [facility] HospitalIsyythhDBCMWXSENUQS3887-47-71 18:46:00 Test Item Value Reference Range Interpretation Comments Creatinine Lvl (test code = Creatinine 0.9 0.5-1.4 Lvl) [facility] HospitalSxbgwysCMANNIOADXQN3353-87-24 18:46:00 Test Item Value Reference Range Interpretation Comments Potassium Lvl (test code = Potassium 4.2 3.5-5.1 Lvl) [facility] HospitalSilvzojTTGJJMTSHTCA5625-29-79 18:46:00 Test Item Value Reference Range Interpretation Comments Sodium Lvl (test code = Sodium Lvl) 139 135-145 [facility] HospitalLhtbcodSFQLPEVWQOIW2860-54-59 18:46:00 Test Item Value Reference Range Interpretation Comments CO2 (test code = CO2) 24 24-32 [facility] HospitalXqfhuimFSVWSFQIDKRA0194-11-19 18:46:00 Test Item Value Reference Range Interpretation Comments BUN (test code = BUN) 16 7-22 [facility] HospitalOnitlcrPFLVQSCBMRHN2260-09-05 18:46:00 Test Item Value Reference Range Interpretation Comments Glucose Lvl (test code = Glucose Lvl) 141 70-99 [facility] HospitalPiscijgSKNKEWGVSGGG7426-53-64 18:46:00 Test Item Value Reference Range Interpretation Comments Albumin Lvl (test code = Albumin Lvl) 3.6 3.5-5.0 [facility] HospitalUlnjcshJLDYOQTSQTUT0552-97-79 18:46:00 Test Item Value Reference Range Interpretation Comments Alk Phos (test code = Alk Phos) 65 39-136 [facility] HospitalNccegjkMKJIPDDQSRJO4551-83-23 18:46:00 Test Item Value Reference Range Interpretation Comments Bili Total (test code = Bili Total) 0.3 0.2-1.3 [facility] HospitalLcqqlcvOVYGLLTYLAYQ1545-91-97 18:46:00 Test Item Value Reference Range Interpretation Comments ALT (test code = ALT) 100 See_Comment [Auto mated message] The system which ge nerated this result transmit elizabeth reference range : <=65. The reference range was not used to interpr et this result as margaret l/abnormal. [facility] HospitalIuxjyqcDLSQTVMVQDKT6897-36-78 18:46:00 Test Item Value Reference Range Interpretation Comments AST (test code = AST) 53 See_Comment [Auto mated message] The system which ge nerated this result transmit elizabeth reference range : <=37. The reference range was not used to interpr et this result as margaret l/abnormal. [facility] HospitalQygszetQRULQEZZFTSI1847-87-51 18:46:00 Test Item Value Reference Range Interpretation Comments Total Protein (test code = Total 6.9 6.4-8.4 Protein) [facility]landsMrgbzkkMNPVIFZJOU6621-10-54 18:46:00 Test Item Value Reference Range Interpretation Comments Eosinophils (test code = 4.2 See_Comment [A utomated message] The Eosinophils) system which ge nerated this result tra nsmitted reference range : <=4.0. The reference r mitra was not used to int erpret this result as normal/abnormal . [facility] DallasUwomqreYKVHUEHCGC7144-92-86 18:46:00 Test Item Value Reference Range Interpretation Comments Segs (test code = Segs) 56.4 45.0-75.0 [facility] DallasLvnetbuNGNJZSOAOD2145-46-42 18:46:00 Test Item Value Reference Range Interpretation Comments Monocytes (test code = Monocytes) 10.3 2.0-12.0 [facility] DallasIjateaoSWKKOUMFQK2037-91-65 18:46:00 Test Item Value Reference Range Interpretation Comments Lymphocytes (test code = Lymphocytes) 28.0 20.0-40.0 [facility] DallasScaskchAZPLFMCGBZ5204-58-08 18:46:00 Test Item Value Reference Range Interpretation Comments Monocytes # (test code 0.5 See_Comment [Aut omated message] The = Monocytes #) system which generated this result tra nsmitted reference range : <=0.8. The reference r mitra was not used to int erpret this result as normal/abnormal . [facility] DallasVwribwsWWVKPYYDIF0917-03-59 18:46:00 Test Item Value Reference Range Interpretation Comments Basophils (test code = 1.1 See_Comment [Aut omated message] The Basophils) system which ge nerated this result tra nsmitted reference range : <=1.0. The reference r mitra was not used to int erpret this result as normal/abnormal . [facility] DallasEepobtkWTUALDGUUQ2061-93-16 18:46:00 Test Item Value Reference Range Interpretation Comments Lymphocytes # (test code = Lymphocytes 1.5 1.0-5.5 #) [facility] DallasMsferyoMONEPSSYHD4114-89-60 18:46:00 Test Item Value Reference Range Interpretation Comments Segs-Bands # (test code = Segs-Bands #) 2.9 1.5-8.1 [facility] DallasWdwzytvAOGDABIQJF7969-14-38 18:46:00 Test Item Value Reference Range Interpretation Comments Eosinophils # (test code 0.2 See_Comment [A utomated message] The = Eosinophils #) system whic h generated this result tra nsmitted reference range : <=0.5. The reference r mitra was not used to int erpret this result as normal/abnormal . [facility] DallasGdleqbpNFDMEAVVSZ1539-38-85 18:46:00 Test Item Value Reference Range Interpretation Comments Basophils # (test code 0.1 See_Comment [Aut omated message] The = Basophils #) system which generated this result tra nsmitted reference range : <=0.2. The reference r mitra was not used to int erpret this result as normal/abnormal . [facility] DallasNurjewgUPBQRPJMSK5106-92-34 18:46:00 Test Item Value Reference Range Interpretation Comments PT (test code = PT) 11.2 s 12.0-14.7 [facility] DallasAxfaphpQXIECRIGOT9153-80-41 18:46:00 Test Item Value Reference Range Interpretation Comments INR (test code = INR) 0.82 0.85-1.17 [facility] DallasUgrwcwjCEZZGYSOQZ4856-29-92 18:46:00 Test Item Value Reference Range Interpretation Comments PTT (test code = PTT) 28.6 s 22.9-35.8 [facility] DallasQcyymogTFDISZCWXI9556-18-52 18:46:00 Test Item Value Reference Range Interpretation Comments MPV (test code = MPV) 8.1 7.4-10.4 [facility] DallasLaeqqfjPEGHMEEJSG9676-74-50 18:46:00 Test Item Value Reference Range Interpretation Comments Platelet (test code = Platelet) 301 133-450 [facility] DallasWuxtrdiAGAKEXUQOP0822-64-29 18:46:00 Test Item Value Reference Range Interpretation Comments RDW (test code = RDW) 14.5 11.5-14.5 [facility] DallasUykbtikHREMMTDMDI8161-38-20 18:46:00 Test Item Value Reference Range Interpretation Comments RBC (test code = RBC) 4.84 4.70-6.10 [facility] DallasHachwcqKAKOVWRLNV4804-94-70 18:46:00 Test Item Value Reference Range Interpretation Comments Hgb (test code = Hgb) 14.4 14.0-18.0 [facility] DallasZgzmubqVWZQXVQRGL9077-14-75 18:46:00 Test Item Value Reference Range Interpretation Comments WBC (test code = WBC) 5.2 3.7-10.4 [facility] DallasTfxnrcjCZKWHNFFXW0261-46-75 18:46:00 Test Item Value Reference Range Interpretation Comments MCH (test code = MCH) 29.8 pg 27.0-31.0 [facility] IpnxdckXQSBEWAUWY6100-79-64 18:46:00 Test Item Value Reference Range Interpretation Comments MCV (test code = MCV) 92.0 80.0-94.0 [facility] XrsjpgdAWARZPQHZO0324-28-21 18:46:00 Test Item Value Reference Range Interpretation Comments Hct (test code = Hct) 44.5 42.0-54.0 [facility] CcmbbwlOBJDLWKGHW8183-94-60 18:46:00 Test Item Value Reference Range Interpretation Comments MCHC (test code = MCHC) 32.4 32.0-36.0 [facility] LjfxahjAHBSLRHZOT4658-02-81 18:46:00 Test Item Value Reference Range Interpretation Comments [place]-Hep C Ab (test Negative *NA*(07/22/14 code = [place]-Hep C 1:46 PM) Ab) [facility] AND [id number] 18:46:00 Test Item Value Reference Range Interpretation Comments UA Urobilinogen (test code = UA <=1.0 mg/dL 0.1-1.0 Urobilinogen) [facility] AND [id number] 18:46:00 Test Item Value Reference Range Interpretation Comments UA Sq Epi (test code = UA Sq Epi) None Seen [facility] AND [id number] 18:46:00 Test Item Value Reference Range Interpretation Comments UA Leuk Est (test Negative (07/22/14 1:46 code = UA Leuk Est) PM) [facility] AND [id number] 18:46:00 Test Item Value Reference Range Interpretation Comments UA Nitrite (test code Negative (07/22/14 1:46 = UA Nitrite) PM) [facility] AND [id number] 18:46:00 Test Item Value Reference Range Interpretation Comments UA Blood (test code = Negative (07/22/14 1:46 UA Blood) PM) [facility] [id number] 18:46:00 Test Item Value Reference Range Interpretation Comments UA Ketones (test code = UA Negative mg/dL Ketones) [facility] AND [id number] 18:46:00 Test Item Value Reference Range Interpretation Comments UA Bili (test code = Negative *NA*(07/22/14 UA Bili) 1:46 PM) [facility] [id number] 18:46:00 Test Item Value Reference Range Interpretation Comments UA Bacteria (test code = UA Occasional /HPF Bacteria) [facility] [id number] 18:46:00 Test Item Value Reference Range Interpretation Comments UA RBC (test code = no gt See_Comment [Automa elizabeth message] The UA RBC) system which ge nerated this result transmit elizabeth reference range : <=2. The reference range was not used to interpr et this result as margaret l/abnormal. [facility] [id number] 18:46:00 Test Item Value Reference Range Interpretation Comments UA WBC (test code = 1 See_Comment [Automa elizabeth message] The UA WBC) system which ge nerated this result transmit elizabeth reference range : <=5. The reference range was not used to interpr et this result as margaret l/abnormal. [facility] [id number] 18:46:00 Test Item Value Reference Range Interpretation Comments UA Glucose (test code = UA Glucose) 30 mg/dL [facility] [id number] 18:46:00 Test Item Value Reference Range Interpretation Comments UA Protein (test code = UA Negative mg/dL Protein) [facility] [id number] 18:46:00 Test Item Value Reference Range Interpretation Comments UA pH (test code = UA pH) 6.5 5.0-8.0 [facility] [id number] 18:46:00 Test Item Value Reference Range Interpretation Comments UA Turbidity (test code = Clear (07/22/14 1:46 UA Turbidity) PM) [facility] [id number] 18:46:00 Test Item Value Reference Range Interpretation Comments UA Spec Grav (test code = UA Spec Grav) 1.010 [facility] [id number] 18:46:00 Test Item Value Reference Range Interpretation Comments UA Color (test code = Light Yellow UA Color) *NA*(07/22/14 1:46 PM) [facility]annCHEM TDDRZ1294-03-56 18:46:00 Test Item Value Reference Range Interpretation Comments Magnesium Lvl (test code = Magnesium 1.8 1.8-2.4 Lvl) [facility] HospitalBqrhpuaKVNAERZHRLUC4350-49-36 18:46:00 Test Item Value Reference Range Interpretation Comments AGAP (test code = AGAP) 13.2 10.0-20.0 [facility]2015-06-09 18:46:00 Test Item Value Reference Range Interpretation Comments Magnesium Lvl (test code = Magnesium 1.8 1.8-2.4 Lvl) [facility] HospitalKxrzfehZFDOABYBRLQJ9480-55-77 18:46:00 Test Item Value Reference Range Interpretation Comments AGAP (test code = AGAP) 13.2 10.0-20.0 [facility] HospitalRefdbsmWRZKIEHDAWXC1888-23-42 18:46:00 Test Item Value Reference Range Interpretation Comments B/C Ratio (test code = B/C Ratio) 18 6-25 [facility] HospitalJyuusttWUYPGUMDWAYC3464-03-29 18:46:00 Test Item Value Reference Range Interpretation Comments A/G Ratio (test code = A/G Ratio) 1.1 0.7-1.6 [facility] HospitalGvnymfdEFGXCZPTHRQT5164-34-57 18:46:00 Test Item Value Reference Range Interpretation Comments Globulin (test code = Globulin) 3.3 2.0-4.0 [facility] HospitalKtlpvpjZWRFKUTNDHIT0206-06-35 18:46:00 Test Item Value Reference Range Interpretation Comments eGFR (test code = eGFR) 99 [facility] HospitalFdabnziVDLISDBLLTQK3916-93-43 18:46:00 Test Item Value Reference Range Interpretation Comments Calcium Lvl (test code = Calcium Lvl) 9.0 8.5-10.5 [facility] HospitalXshjgewZEYZYABHWRHO7268-83-27 18:46:00 Test Item Value Reference Range Interpretation Comments Chloride Lvl (test code = Chloride Lvl) 106 95-109 [facility] HospitalTvyxfptENEUDVAFWSMT7007-41-20 18:46:00 Test Item Value Reference Range Interpretation Comments Creatinine Lvl (test code = Creatinine 0.9 0.5-1.4 Lvl) [facility] HospitalIculaegQBSYTPYINDTV1437-72-96 18:46:00 Test Item Value Reference Range Interpretation Comments Potassium Lvl (test code = Potassium 4.2 3.5-5.1 Lvl) [facility] HospitalDjyhfjwLGMZIOSOVQBX3477-75-93 18:46:00 Test Item Value Reference Range Interpretation Comments Sodium Lvl (test code = Sodium Lvl) 139 135-145 [facility] HospitalJsomberTLANFXWZZKZP6079-03-82 18:46:00 Test Item Value Reference Range Interpretation Comments CO2 (test code = CO2) 24 24-32 [facility] HospitalLlmalinQKUAIETCPHZC4268-04-09 18:46:00 Test Item Value Reference Range Interpretation Comments BUN (test code = BUN) 16 7-22 [facility] HospitalFlynvmjTPXLGSYUCTDH5929-14-62 18:46:00 Test Item Value Reference Range Interpretation Comments Glucose Lvl (test code = Glucose Lvl) 141 70-99 [facility] HospitalGonwfhqYXVRTRREYWFW7191-55-79 18:46:00 Test Item Value Reference Range Interpretation Comments Albumin Lvl (test code = Albumin Lvl) 3.6 3.5-5.0 [facility] HospitalZaiyobbIJGYBAAJCZFD3127-96-87 18:46:00 Test Item Value Reference Range Interpretation Comments Alk Phos (test code = Alk Phos) 65 39-136 [facility] HospitalVqebsdvCTSKQOBKYLRN1276-81-52 18:46:00 Test Item Value Reference Range Interpretation Comments Bili Total (test code = Bili Total) 0.3 0.2-1.3 [facility] HospitalBfkihxcPAZPUBFQBCUC8972-20-98 18:46:00 Test Item Value Reference Range Interpretation Comments ALT (test code = ALT) 100 See_Comment [Auto mated message] The system which ge nerated this result transmit elizabeth reference range : <=65. The reference range was not used to interpr et this result as margaret l/abnormal. [facility] HospitalBzjjthhFBUPMJDKSVBJ6209-34-49 18:46:00 Test Item Value Reference Range Interpretation Comments AST (test code = AST) 53 See_Comment [Auto mated message] The system which ge nerated this result transmit elizabeth reference range : <=37. The reference range was not used to interpr et this result as margaret l/abnormal. [facility] HospitalLcuiusrVTQLDZVBXMJE6315-11-20 18:46:00 Test Item Value Reference Range Interpretation Comments Total Protein (test code = Total 6.9 6.4-8.4 Protein) [facility]wtrljoFVXCRWZGVR5509-30-70 18:46:00 Test Item Value Reference Range Interpretation Comments Eosinophils (test code = 4.2 See_Comment [A utomated message] The Eosinophils) system which ge nerated this result tra nsmitted reference range : <=4.0. The reference r mitra was not used to int erpret this result as normal/abnormal . [facility] DallasMqcxxblTKCVATOPHL7895-35-67 18:46:00 Test Item Value Reference Range Interpretation Comments Segs (test code = Segs) 56.4 45.0-75.0 [facility] DallasKtcjhowFBBLUTMTUK4133-85-52 18:46:00 Test Item Value Reference Range Interpretation Comments Monocytes (test code = Monocytes) 10.3 2.0-12.0 [facility] DallasHnsjwgbKFWXDDMCOS6721-30-47 18:46:00 Test Item Value Reference Range Interpretation Comments Lymphocytes (test code = Lymphocytes) 28.0 20.0-40.0 [facility] DallasXjdymqbVJTCSAPJLD0602-95-27 18:46:00 Test Item Value Reference Range Interpretation Comments Monocytes # (test code 0.5 See_Comment [Aut omated message] The = Monocytes #) system which generated this result tra nsmitted reference range : <=0.8. The reference r mitra was not used to int erpret this result as normal/abnormal . [facility] DallasYfyingwNSYPJHPFJK5891-22-12 18:46:00 Test Item Value Reference Range Interpretation Comments Basophils (test code = 1.1 See_Comment [Aut omated message] The Basophils) system which ge nerated this result tra nsmitted reference range : <=1.0. The reference r mitra was not used to int erpret this result as normal/abnormal . [facility] DallasDexhlblMPRAVBORWU8938-07-67 18:46:00 Test Item Value Reference Range Interpretation Comments Lymphocytes # (test code = Lymphocytes 1.5 1.0-5.5 #) [facility] DallasCmxkrnxIDGQTIHQTM5779-80-84 18:46:00 Test Item Value Reference Range Interpretation Comments Segs-Bands # (test code = Segs-Bands #) 2.9 1.5-8.1 [facility] DallasNqsrxxoMMYAIDDELT2348-45-43 18:46:00 Test Item Value Reference Range Interpretation Comments Eosinophils # (test code 0.2 See_Comment [A utomated message] The = Eosinophils #) system whic h generated this result tra nsmitted reference range : <=0.5. The reference r mitra was not used to int erpret this result as normal/abnormal . [facility] DallasAvpukbzPJJADUQCOS3288-68-03 18:46:00 Test Item Value Reference Range Interpretation Comments Basophils # (test code 0.1 See_Comment [Aut omated message] The = Basophils #) system which generated this result tra nsmitted reference range : <=0.2. The reference r mitra was not used to int erpret this result as normal/abnormal . [facility] DallasDdzbvhtPYPVEBSRRI7726-63-21 18:46:00 Test Item Value Reference Range Interpretation Comments PT (test code = PT) 11.2 s 12.0-14.7 [facility] DallasVpoesjsRXMFJWPRFP2514-15-91 18:46:00 Test Item Value Reference Range Interpretation Comments INR (test code = INR) 0.82 0.85-1.17 [facility] DallasGafphyzLOEGEKYPCA7933-63-03 18:46:00 Test Item Value Reference Range Interpretation Comments PTT (test code = PTT) 28.6 s 22.9-35.8 [facility] DallasNvcysbxWQUIHEENJD7510-22-37 18:46:00 Test Item Value Reference Range Interpretation Comments MPV (test code = MPV) 8.1 7.4-10.4 [facility] DallasZkcafdaSPCBYAVKNN2760-61-67 18:46:00 Test Item Value Reference Range Interpretation Comments Platelet (test code = Platelet) 301 133-450 [facility] DallasZkvfsojWALILEZTOB5073-42-18 18:46:00 Test Item Value Reference Range Interpretation Comments RDW (test code = RDW) 14.5 11.5-14.5 [facility] DallasVwykpzeCRPBVRUJSU0159-19-37 18:46:00 Test Item Value Reference Range Interpretation Comments RBC (test code = RBC) 4.84 4.70-6.10 [facility] DallasAgfkafdZKFHJIXYIY1871-48-29 18:46:00 Test Item Value Reference Range Interpretation Comments Hgb (test code = Hgb) 14.4 14.0-18.0 [facility] DallasWlppmyrRHDTESEWAQ3871-75-95 18:46:00 Test Item Value Reference Range Interpretation Comments WBC (test code = WBC) 5.2 3.7-10.4 [facility] DallasSibbirmSAYHMDABFZ7601-32-03 18:46:00 Test Item Value Reference Range Interpretation Comments MCH (test code = MCH) 29.8 pg 27.0-31.0 [facility] DallasKjmnnykWGQOXMJVDQ7358-07-92 18:46:00 Test Item Value Reference Range Interpretation Comments MCV (test code = MCV) 92.0 80.0-94.0 [place] [id number] 18:46:00 Test Item Value Reference Range Interpretation Comments Hct (test code = Hct) 44.5 42.0-54.0 [facility] HilxanyZZZEKKABUE9165-97-43 18:46:00 Test Item Value Reference Range Interpretation Comments MCHC (test code = MCHC) 32.4 32.0-36.0 [facility]landsNvlsvlpTRBSGJKNLD6495-44-68 18:46:00 Test Item Value Reference Range Interpretation Comments [place]-Hep C Ab (test Negative *NA*(07/22/14 code = [place]-Hep C 1:46 PM) Ab) [facility] AND [id number] 18:46:00 Test Item Value Reference Range Interpretation Comments UA Urobilinogen (test code = UA <=1.0 mg/dL 0.1-1.0 Urobilinogen) [facility] AND [id number] 18:46:00 Test Item Value Reference Range Interpretation Comments UA Sq Epi (test code = UA Sq Epi) None Seen [facility] AND [id number] 18:46:00 Test Item Value Reference Range Interpretation Comments UA Leuk Est (test Negative (07/22/14 1:46 code = UA Leuk Est) PM) [facility] AND [id number] 18:46:00 Test Item Value Reference Range Interpretation Comments UA Nitrite (test code Negative (07/22/14 1:46 = UA Nitrite) PM) [facility] AND [id number] 18:46:00 Test Item Value Reference Range Interpretation Comments UA Blood (test code = Negative (07/22/14 1:46 UA Blood) PM) [facility] AND [id number] 18:46:00 Test Item Value Reference Range Interpretation Comments UA Ketones (test code = UA Negative mg/dL Ketones) [facility] [id number] 18:46:00 Test Item Value Reference Range Interpretation Comments UA Bili (test code = Negative *NA*(07/22/14 UA Bili) 1:46 PM) [facility] AND [id number] 18:46:00 Test Item Value Reference Range Interpretation Comments UA Bacteria (test code = UA Occasional /HPF Bacteria) [facility] AND [id number] 18:46:00 Test Item Value Reference Range Interpretation Comments UA RBC (test code = no gt See_Comment [Automa elizabeth message] The UA RBC) system which ge nerated this result transmit elizabeth reference range : <=2. The reference range was not used to interpr et this result as margaret l/abnormal. [facility] [id number] 18:46:00 Test Item Value Reference Range Interpretation Comments UA WBC (test code = 1 See_Comment [Automa elizabeth message] The UA WBC) system which ge nerated this result transmit elizabeth reference range : <=5. The reference range was not used to interpr et this result as margaret l/abnormal. [facility] AND [id number] 18:46:00 Test Item Value Reference Range Interpretation Comments UA Glucose (test code = UA Glucose) 30 mg/dL [facility] AND [id number] 18:46:00 Test Item Value Reference Range Interpretation Comments UA Protein (test code = UA Negative mg/dL Protein) [facility] AND [id number] 18:46:00 Test Item Value Reference Range Interpretation Comments UA pH (test code = UA pH) 6.5 5.0-8.0 [facility] AND [id number] 18:46:00 Test Item Value Reference Range Interpretation Comments UA Turbidity (test code = Clear (07/22/14 1:46 UA Turbidity) PM) [facility] AND [id number] 18:46:00 Test Item Value Reference Range Interpretation Comments UA Spec Grav (test code = UA Spec Grav) 1.010 [facility] AND [id number] 18:46:00 Test Item Value Reference Range Interpretation Comments UA Color (test code = Light Yellow UA Color) *NA*(07/22/14 1:46 PM) [facility] Notes Date/Time Note Provider Source 2017-01-31 21:00:10-00:00 [facility] Discharge Summary PATIENT NAME: VITALIYCHARO MADERA PHYSICIAN: Royal Reed Admitted: MR NUMBER: [id number] DISCHARGED: 01/04/2017 12:2 2:00 DATE OF ADMISSION: 12/23/2016 DATE OF DISCHARGE: 01/04/2017 REASON FOR ADMISSION: The patient was admitted for a chief complaint o f disorganized thoughts and behaviors, apparent delusions. He was brought to [facility] by the [facility]pc after he was arrested on criminal mi schief. While in fpc, he displayed disorganized behavior and disorganized thoughts, [...] receives Social Security, re cently released from shelter and poor social support. PRINCIPAL PROCEDURES: Psychopharmacotherapy. [...] we began to taper the Ativan down, alina elizabeth began to improve. Once the patient was detoxed from alcohol and then detoxe d from Ativan, he became oriented to person, place, time and situation. W e were able to obtain a much better psychiatric history, health history and f amily history. On day of discharge, the patient was suitable for discharg e based on resolution of his Patient Name: CHARO KAYE [id number] admitting symptoms, of disorganized behavior, di sorganized [...] RESTRICTIONS: None. FOLLOWUP: Patient Name: CHARO KAYE [id number] The patient has a followup appointment scheduled with [facility] in [place] on 01/23/2017 at 1:30 p.m. and has [...] The patient has also met with the social work administrator to obtain appropriate followup report. The importance on following through with this plan has been review ed with the patient. The patient understands that compliance will be cruc ial to his recovery. He has been given the [facility] Crisis hotline number and the information about the [facility], if he wishes to obtain t herapy. MD Ramana Winn MD MH/SHE TD: 01/16/2017 02:03 CC:Ramana Shea MD Electronically Authenticated by: Royal Miller MD On 01/17/2017 02:55 PM [employer] Electronically Authenticated by: Ramana Shea MD On 02/15/2017 12:47 PM [employer] 2017-01-06 13:35:23-00:00 [facility] Progress Note PATIENT NAME: CHARO KAYE PHYSICIAN: Shiva hopper MD Admitted: MR NUMBER: [id number] DISCHARGED: DATE OF SERVICE: 12/30/2016 TIME SEEN: 16:40. SUBJECTIVE: I was asked to see this patient by Dr. Ramana salazar's service, particularly resident, Dr. Miller, with regard to this patient' s condition. Apparently, this patient was brought in with roberto e form of psychosis and altered mental status from [facility]. Apparently, there was concern for Wernicke [...] had much in the way of fo mely. Also, apparently he had some issues with pain in his legs as well an d apparently had muscle biopsies performed in his upper thigh region abo wy a couple years ago and apparently he [...] He states that care was received at [facility] with regards to t his issue. PHYSICAL EXAMINATION: VITAL SIGNS: Temperature 98.0 degrees Fahrenheit , heart rate 81, respiratory rate 16, blood pressure 135/81. GENERAL: This patient is talking to me, appears focused, at times inappropriate with some of the answers I give hi m; however, when redirected appears to be making sensible speech. He knows alina elizabeth is at [facility]. [facility] Progress Note PATIENT NAME: CHARO KAYE PHYSICIAN: Shiva hopper MD Admitted: MR NUMBER: [id number] DISCHARGED: DATE OF SERVICE: 12/30/2016 TIME SEEN: 16:40. SUBJECTIVE: I was asked to see this patient by Dr. Ramana salazar's service, particularly resident, Dr. Miller, with regard to this patient' s condition. Apparently, this patient was brought in with roberto e form of psychosis and altered mental status from [facility]. Apparently, there was concern for Wernicke [...] He states that care was received at [facility] with regards to t his issue. PHYSICAL EXAMINATION: VITAL SIGNS: Temperature 98.0 degrees Fahrenheit , heart rate 81, respiratory rate 16, blood pressure 135/81. GENERAL: This patient is talking to me, appears focused, at times inappropriate with some of the answers I give hi m; however, when redirected appears to be making sensible speech. He knows alina elizabeth is at [facility]. Patient Name: CHARO KAYE [id number] CHEST: Clear to auscultation bilaterally. No whe [...] medical issues here. Patient Name: CHARO KAYE [id number] CHEST: Clear to auscultation bilaterally. No whe [...] medical issues here. Patient Name: CHARO KAYE [id number] We will continue to follow. Shiva Stack MD RV/RAN/CTV TD: 12/30/2016 18:08 Patient Name: CHARO KAYE [id number] We will continue to follow. Shiva Stack MD RV/AURORA/CTV TD: 12/30/2016 18:08 Electronically Authenticated by: Shiva Stack MD On 01/06/2017 12:12 PM [facility] 2017-01-05 17:10:42-00:00 [facility] History and Physical PATIENT NAME: CHARO KAYE PHYSICIAN: Lisa rockwell MD Admitted: MR NUMBER: [id number] DISCHARGED: DATE OF SERVICE: 12/24/2016 The patient was seen and examined today. CONSULTING PHYSICIAN: Ramana Shea MD. REASON FOR CONSULTATION: Medical management. HISTORY OF PRESENT ILLNESS: The patient is a 55-year-old gentleman , an extremely unreliable and poor historian. Does not answer appropriately, a pparently transferred here from [facility] for bizarre behavior. At this time, [...] Could not obtain. PERSONAL HISTORY: He is [facility] resident. He does have a h istory [...] No JVD. No spinal or CVA tenderness. [facility] History and Physical LUNGS: Vesicular breath sounds. [...] any questions or concern. MD NATHALIE Gray/JESSI/MAX [facility] History and Physical TD: 12/24/2016 17:03 Electronically Authenticated and Edited by: Lisa Beard MD On 01/05/2017 05:10 PM [employer] 2016-12-30 16:09:20-00:00 [facility] History and Physical PATIENT NAME: CHARO KAYE PHYSICIAN: Jose David Francisco Admitted: MR NUMBER: [id number] DISCHARGED: ATTENDING PHYSICIAN: Ramana Shea MD INFORMANT: The patient nursing home warrant. CHIEF COMPLAINT: "I'm hungry." HISTORY OF PRESENT ILLNESS: Mr. Charo Kaye is a 55-year-old male with self- reported past psychiatric history of bipolar disorder, depression, anxiety , PTSD, alcohol use, that presented from [facility] on a detenti on warrant secondary to smearing fecal matter on surrounding responding to internal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
== END 2022-07-19 13:02 | disposition left against medical advice (07) ==
LOC: ER 12:23
DX: Z53.21 Procedure and treatment not carried out due to patient leaving prior to being seen by health care provider (principal)
CPT/HCPCS: 99282

== ENCOUNTER 2022-07-19 13:10 | Emergency (ER) | payer OTHER ==
--- OUTSIDE RECORDS SUMMARY | 2022-07-19 14:01 | XMS REPORT | Continuity of Care Document ---
:1960 Author Organization [facility] t Address [address] [place] [address] Care Team Providers Name Role Phone Asked, No Pcp Primary Care Physician Unavailable [id number] Attending Clinician Unavailable IZABELA PHAM Attending Clinician Unavailable IZABELA PHAM Attending Clinician Unavailable LAWRENCE PETERSON Attending Clinician Unavailable LAWRENCE PETERSON Attending Clinician Unavailable ROBINA BECERRIL Attending Clinician Unavailable Kvng CORONADO, Elyssa Thornton Attending Clinician Unavailable ELLE JARRELL Attending Clinician Unavailable ANA TERRAZAS Attending Clinician Unavailable Ana Terrazas MD Attending Clinician RAMANA CRUZ Attending Clinician Unavailable Ángel Murray MD Attending Clinician Nancy CARTER, aRmana Simon Attending Clinician TRACEY TRINIDAD Attending Clinician Unavailable Hilda Miller MD Attending Clinician Tracey Trinidad DO Attending Clinician Jerrica CARTER, Robina Valdez Attending Clinician Kaden CARTER, Sunny Attending Clinician [phone] Fabienne CARTER, Olga Attending Clinician Kendra CARTER, Laureen Attending Clinician LAUREEN MOORE Attending Clinician Unavailable Doctor Unassigned, [place] Attending Clinician Unavailable ALLAN LYNCH Attending Clinician [...] CHOUDHURY Attending Clinician Unavailable , [facility] Attending Clinician Unavailable Susan Manjarrez PA-C Attending Clinician SUSAN MANJARREZ Attending Clinician Unavailable DELROY FARAH Attending Clinician Unavailable Delroy Farah MD Attending Clinician [facility] Attending Clinician Unavailable Erma Morales RN Attending Clinician Unavailable MAGDALENE MALDONADO Attending Clinician Unavailable Joel FIREFIGHTING EQUIPMENT SPECIALIST, Magdalene Attending Clinician Sejal FIREFIGHTING EQUIPMENT SPECIALIST, Fadisuma Attending Clinician CARLOS CORBIN Attending Clinician Unavailable Ladonna Bryant DO Attending Clinician MICHAEL SARGENT S Attending Clinician Unavailable Mcihael Fulton S Attending Clinician CLEVE_ Attending Clinician Unavailable BENITO LOPEZ Attending Clinician Unavailable Edgard Leo DO Attending Clinician Magali Curtis MD Attending Clinician Ted Lion MD Attending Clinician Allen Maravilla MD Attending Clinician Perla CARTER, Georgina Key Attending Clinician [phone] SIENNA POLK Attending Clinician Unavailable LADI RIBERA Attending Clinician Unavailable YASMINE BROOKE Attending Clinician Unavailable MD YASMINE BROOKE Attending Clinician Unavailable Pato Hill MD Attending Clinician Surgery, Tdc General Attending Clinician Unavailable Sofia Malone MD Attending Clinician Surgery, c Vascular Attending Clinician Unavailable Ramana Padron MD Attending Clinician RAMANA SHEA M.D., RAMANA Acevedo M.D. Attending Clinician Unavailable Christy Moya Attending Clinician [id number] Admitting Clinician Unavailable IZABELA PHAM Admitting Clinician [...] Clinician Perla CARTER, Georgina Key Admitting Clinician [phone] YASMINE BROOKE Admitting Clinician Unavailable MD YASMINE BROOKE Admitting Clinician Unavailable Sergio CARTER, Pato Marina Admitting Clinician RAMANA SEHA M.D., RAMANA Acevedo Admitting Clinician Tasha ivey Payers Payer Name Policy Type Policy Number Effective Date Expiration Date S emmanuel [facility] [id number] [place] [id number] 2021 CLASSIC NO PREMIUM 00:00:00 HMO MEDICARE PART A [id number] 2003 00:00:00 [facility] [id number] [facility] 00:00:00 WELLCARE MAPS [id number] 2022 00:00:00 WELLCARE VALUE [id number] 2020 00:00:00 Problems Condition Condition Condition Status Onset Resolution Last Treating Co mments Source Name Details Category Date Date Treatment Clinician Date Cellulitis Cellulitis Disease Active U nivers of right of right 5-29 ity of lower lower 00:00: [place] extremity extremity 00 [facility] Branch Acute Acute Disease Active [facility] metabolic metabolic 5-14 [facility] encephalop encephalop 00:00: Ne dical athy athy 00 Center Toxic Toxic Disease Active [facility] encephalop encephalop 5-14 [facility] kes athy athy 00:00: Medical 00 Center Hydronephr Hydronephr Disease Active [facility] osis osis 5-09 [facility] 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 4-14 ity of 00:00: [place] 00 Medical Branch DVT (deep DVT (deep Disease Active Uni vers venous venous 4-14 [place] 00 [facility] Branch Bilateral Bilateral Disease Active Uni vers sciatica sciatica 4-13 ity of 00:00: [place] 00 Medical Branch Obesity Obesity Disease Active Univers (BMI (BMI 4-13 ity of 30-39.9) 30-39.9) 00:00: [place] 00 Medical Branch Deep vein Deep vein [...] chronicity chronicity ally from request for surgery [id number] Lipoma of Lipoma of Disease Active Overview: Univers right right 4-12 Formattin ity of lower lower 00:00: g of this [place] extremity extremity 00 note Medi gordon might be Branch different from the original. Added automatic ally from request for surgery [id number] Lipoma of Lipoma of Disease Active Uni vers torso torso 4-06 ity of 00:00: [place] Medical Branch Kamryn Kamryn Disease Active Univers 6-24 ity of 00:00: [place] [facility] Rhabdomyol Rhabdomyol Disease Active U nivers ysis ysis 6-21 ity of 00:00: [place] [address] Medical Branch Presence Presence Disease Active Metho di of IVC of IVC [facility] [facility] filter filter 00:00: Hospita 00 l Acute Acute Disease Active Methodi chest pain chest pain 9-15 st 00:00: Hospita 00 l Behavior Behavior Disease Active Unive rs problem problem 6-13 ity of 00:00: [place] [address] Medical Branch Cellulitis Cellulitis Disease Active U nivers and and 613 ity of abscess of abscess of [place] foot foot 00 [place] Alteration Alteration Disease Active U nivers consciousn consciousn 6-13 it y of ess ess 00:00: [place] [address] Medical Branch TESTING TESTING Diagnosis Active 2014-07-28 Memoria FOR DVT FOR DVT 07-22 14:06:00 l Active 00:00: [place] 07/22/2014 00 [facility] 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 2-16 ity of disorder, disorder, [place] chronic chronic 00 Medical condition condition Bran ch with acute with acute exacerbati exacerbati on on Hypertensi Hypertens Problem Active 2014-07-25 Memoria ve raisa 07:19:48 l disorder, disorder, Herm britt systemic systemic arterial arterial (disorder) (disorder) Active Problem 07/25/2014 [facility] History of Past Illness Condition Condition Condition Status Onset Resolution Last Treating Co mments Source Name Details Category Date Date Treatment Clinician Date Discharge Discharge Problem 2014-2014-07-25 2014-07-25 Memoria Diagnosis: Diagnosis: 07-22 07:19:48 07:19:48 l Chronic Chronic 05:00: [place] back pain back pain 00 07/22/2014 07/25/2014 [facility] Discharge Discharge Problem 2014-07-25 2014-07-25 Memoria Diagnosis: Diagnosis: 07-22 07:19:48 07:19:48 l Peripheral Peripheral 05:00: He rmann edema edema 00 07/22/2014 07/25/2014 [facility] Allergies, Adverse Reactions, Alerts Allergy Allergy Status [...] HEPARIN DRUG Active Unknown-Cmnt Uni vers INGREDI - ity of 00:00: [place] 00 Medical Branch Heparin Propensi Active Unknown - HIT-Ab Univ ers ty to See comments - ity of adverse 00:00: [place] reaction 00 [...] Penicill Active Memori a in in l [place] Family History Family Member Diagnosis Comments Start Date Stop Date Source Natural father [facility] mother [facility] Social History Social Habit Start Date Stop Date Quantity Comments Source History SDOH University o f Alcohol Std Drinks [place] [facility] History SDOH University o f Alcohol Binge [place] [facility] Branch History SDOH Social Unive rsity of Connections Get [place] Med ical Together Branch History SDOH Social Unive rsity of Connections [facility] [place] [facility] History SDOH Social Unive rsity of Connections [place] [facility] Membership Branch History SDOH Social Unive rsity of Connections [place] [facility] Meetings Branch Gender identity [facility] Sexual orientation [facility] Exposure to 2022-07-01 2022-07-11 Not sure University [...] 1 Univers ity of Worry 00:00:00 00:00:00 [place] [facility] Branch History SDOH Food 2022-05-27 2022-05-27 1 Univers ity of Scarcity 00:00:00 00:00:00 [place] [facility] History SDOH 2022-05-27 2022-05-27 2 University o f Transport Med 00:00:00 00:00:00 [place] Medic al Branch History SDID 2022-05-27 2022-05-27 2 University o f Transport Non-Med 00:00:00 00:00:00 [place] M edical Branch History SDOH 2022-05-27 2022-05-27 2 University o f Housing Unable to 00:00:00 00:00:00 [place] M edical Pay Branch History [facility] 2022-05-27 2022-05-27 1 University o f Housing Places 00:00:00 00:00:00 [facility] gordon Lived Branch History [facility] 2022-05-27 2022-05-27 2 University o f Housing Homeless 00:00:00 00:00:00 [facility] dical Last Year Branch Education 2022-05-26 2022-05-26 21 University of 00:00:00 00:00:00 [facility] Tobacco use and 2022-05-03 2022-05-03 User of Universit y of exposure 00:00:00 00:00:00 smokeless [facility] Tobacco Comment 2021-09-22 2021-09-22 dipper Universit y of 00:00:00 00:00:00 [facility] History of Social 2019-10-31 2019-10-[address] function 00:00:00 00:00:00 Hospital Alcohol intake 2019-10-29 2019-10-29 Lifetime [facility] 00:00:00 00:00:00 non-drinker Hospital (finding) History of tobacco 2014-08-25 Snuff User Univer sity of use 00:00:00 [facility] Sex Ass[birth year] At [birth year] [facility] 00:00:00 00:00:00 Hospital Smoking Status Start Date Stop Date Source Social History [facility] Medications Ordered Filled Start Stop Current Ordering Indication Dosage Frequency Signature Comments Components Source Medication Medication Date Date Medication? Clinician (SIG) Name Name clindamycin 2023-0 2023- No 900mg 900 mg, IV Univers in 5 % 07-11 Piggyback, ity of dextrose 10:45: 11:47 ONCE, 1 [place] (CLEOCIN) 00 :00 dose, On Medica l 900 mg/50 Mon [place] mL IV 07/11/22 at piggyback 0545, RTU 900 mg Administer over 30 Minutes, 50 mL
R chelsea for Anti-Infec tive: Empiric Therapy for Suspected Infection< br>Empiric Therapy Site: Skin / Soft tissue
Duration of therapy: 5 days
Re stricted use approved by: ED PROVIDER cefTRIAXone 2022- No 1000mg 1,000 mg, Univers (ROCEPHIN) 07-05 IV ity of 1,000 mg in 14:15: 14:53 [place], [place] NaCl 0.9% 00 :00 ONCE, 1 Medical (NS) 100 mL dose, On [facility] ch MINI-BAG [facility] 07/05/22 at 0915, Administer over 30 Minutes, 100 mL
Reas on for Anti-Infec tive: Empiric Therapy for Suspected Infection< br>Empiric Therapy Site: Skin / Soft tissue
Duration of therapy: 72 hours FENTanyl PF 2022- No 50ug 50 mcg, Un mary (SUBLIMAZE 07-05 Slow IV ity o f (PF)) 12:15: 11:46 [place], [place] injection 00 :00 ONCE, 1 Medical 50 mcg dose, On [place] 07/05/22 at 0715, Routine OLANZapine 2022-0 Yes [id number] 5mg Take 1 Univers 5 mg tablet 5-23 tablet by ity of 00:00: mouth in [place] 00 the Medical morning. [place] OLANZapine 2022-0 Yes [id number] 5mg Take 1 Univers 5 mg tablet 5-23 tablet by ity of 00:00: mouth in [place] 00 the Medical morning. [place] OLANZapine 2022-0 Yes [id number] 5mg Take 1 Univers 5 mg tablet 5-23 tablet by ity of 00:00: mouth in [place] 00 the Medical morning. [place] OLANZapine 2022-0 Yes [id number] 5mg Take 1 Univers 5 mg tablet 5-23 tablet by ity of 00:00: mouth in [place] 00 the Medical morning. [place] OLANZapine 2022-0 Yes [id number] 5mg Take 1 Univers 5 mg tablet 5-23 tablet by ity of 00:00: mouth in [place] 00 the Medical morning. Branch OLANZapine 2022-0 Yes [id number] 5mg Take 1 Univers 5 mg tablet 5-23 tablet by ity of 00:00: mouth in [place] 00 the Medical morning. Branch OLANZapine 2022-0 Yes [id number] 5mg Take 1 Univers 5 mg tablet 5-23 tablet by ity of 00:00: mouth in [place] 00 the Medical morning. Branch furosemide 2022-0 2022- Yes [id number] 40mg Take 1 Univers 40 mg 5-23 06-07 tablet by ity of tablet 00:00: 04:59 mouth [place] 00 :00 every Medical morning Branch and evening for 14 days. furosemide 2022-0 2022- Yes [id number] 40mg Take 1 Univers 40 mg 5-23 06-07 tablet by ity of tablet 00:00: 04:59 mouth [place] 00 :00 every Medical morning Branch and evening for 14 days. furosemide 2022-0 2022- Yes [id number] 40mg Take 1 Univers 40 mg 5-23 06-07 tablet by ity of tablet 00:00: 04:59 mouth [place] 00 :00 every Medical morning Branch and evening for 14 days. furosemide 2022-0 2022- Yes [id number] 40mg Take 1 Univers 40 mg 5-23 06-07 tablet by ity of tablet 00:00: 04:59 mouth [place] 00 :00 every Medical morning Branch and evening for 14 days. furosemide 2022-0 2022- Yes [id number] 40mg Take 1 Univers 40 mg 5-23 06-07 tablet by ity of tablet 00:00: 04:59 mouth [place] 00 :00 every Medical morning Branch and evening for 14 days. furosemide 2022-0 2022- Yes [id number] 40mg Take 1 Univers 40 mg 5-23 06-07 tablet by ity of tablet 00:00: 04:59 mouth [place] 00 :00 every Medical morning Branch and evening for 14 days. furosemide 2022-0 2022- Yes [id number] 40mg Take 1 Univers 40 mg 5-23 06-07 tablet by ity of tablet 00:00: 04:59 mouth [place] 00 :00 every Medical morning Branch and evening for 14 days. cephALEXin 2022-0 2022- Yes [id number] 1000mg Take 2 Univers 500 mg 07-05 [id number] capsules ity of capsule 00:00: 04:59 by mouth [place] 00 :00 in the Medical morning Branch and 2 capsules in the evening. Do all this for 7 days. cephALEXin 2022-0 2022- Yes [id number] 1000mg Take 2 Univers 500 mg 07-05 [id number] capsules ity of capsule 00:00: 04:59 by mouth [place] 00 :00 in the [facility] morning Branch and 2 capsules in the evening. Do all this for 7 days. cephALEXin 2022-0 2022- Yes [id number] 1000mg Take 2 Univers 500 mg 07-05 [id number] capsules ity of capsule 00:00: 04:59 by mouth [place] 00 :00 in the [facility] morning Branch and 2 capsules in the evening. Do all this for 7 days. cephALEXin 2022-0 2022- Yes [id number] 1000mg Take 2 Univers 500 mg 07-05 [id number] capsules ity of capsule 00:00: 04:59 by mouth [place] 00 :00 in the [facility] and 2 capsules in the evening. Do all this for 7 days. cephALEXin 2022-2022- Yes [id number] 1000mg Take 2 Univers 500 mg 07-05 [id number] capsules ity of capsule 00:00: 04:59 by mouth [place] 00 :00 in the [facility] and 2 capsules in the evening. Do all this for 7 days. apixaban 5 2022-0 Yes [id number] 5mg Take 1 Unive rs mg tablet 5-22 tablet by ity o f 00:00: mouth in [address] and 1 tablet in the evening. Indication s: history of deep vein thrombosis apixaban 5 2022-0 Yes [id number] 5mg Take 1 Unive rs mg tablet 5-22 tablet by ity o f 00:00: mouth in [address] and 1 tablet in the evening. Indication s: history of deep vein thrombosis apixaban 5 2022-0 Yes [id number] 5mg Take 1 Unive rs mg tablet 5-22 tablet by ity o f 00:00: mouth in [address] and 1 tablet in the evening. Indication s: history of deep vein thrombosis apixaban 5 2022-0 Yes [id number] 5mg Take 1 Unive rs mg tablet 5-22 tablet by ity o f 00:00: mouth in [place] 00 the Medical morning Branch and 1 tablet in the evening. Indication s: history of deep vein thrombosis apixaban 5 2022-0 Yes 5523 5mg Take 1 Unive rs mg tablet 5-22 tablet by ity o f 00:00: mouth in [place] 00 the Medical morning Branch and 1 tablet in the evening. Indication s: history of deep vein thrombosis apixaban 5 2022-0 Yes 5523 5mg Take 1 Unive rs mg tablet 5-22 tablet by ity o f 00:00: mouth in [place] 00 the Medical morning Branch and 1 tablet in the evening. Indication s: history of deep vein thrombosis apixaban 5 2022-0 Yes 5523 5mg Take 1 Unive rs mg tablet 5-22 tablet by ity o f 00:00: mouth in [place] 00 the Medical morning Branch and 1 tablet in the evening. Indication s: history of deep vein thrombosis apixaban 5 2022-0 Yes 5523 5mg Take 1 Unive rs mg tablet 5-22 tablet by ity o f 00:00: mouth in [place] [address] the Medical morning Branch and 1 tablet in the evening. Indication s: history of deep vein thrombosis apixaban 5 2022-0 Yes 5523 5mg Take 1 Unive rs mg tablet 5-22 tablet by ity o f 00:00: mouth in [place] 00 the Medical morning Branch and 1 tablet in the evening. Indication s: history of deep vein thrombosis apixaban 5 2022-0 Yes 5523 5mg Take 1 Unive rs mg tablet 5-22 tablet by ity o f 00:00: mouth in [place] [address] the Medical morning Branch and 1 tablet in the evening. Indication s: history of deep vein thrombosis tamsulosin 3-0 Yes .4mg QD Take 1 [facility] (FLOMAX[facility] 5[facility]12 capsule [facility] 0.4 mg Cap 00:00: (0.4 mg Medi gordon 24 hr 00 total) by Center capsule mouth in the morning. tamsulosin 3-0 Yes .4mg QD Take 1 [facility] (FLOMAX) 5-12 capsule [facility] 0.4 mg Cap 00:00: (0.4 mg Medi gordon 24 hr 00 total) by Center capsule mouth in the morning. traMADoL 2023-0 Yes 50mg Take [address] (ULTRAM) 50 5-11 tablet (50 Harpal kes mg tablet 18:24: mg total) Med ical 33 by mouth Center every 6 (six) hours as needed for Pain. Max Daily Amount: 200 mg mirtazapine 2023-0 Yes 45mg QD Take [address] (REMERON) 5-11 tablet (45 Luke s 45 MG 18:24: mg total) Medical tablet 33 by mouth Center nightly. gabapentin 2023-0 Yes 300mg Q.[id number] Take [address] (NEURONTIN) 5-11 [id number] capsule [facility] 300 MG 18:24: 3D (300 [...] [facility] (ULTRAM) 50 5-11 tablet (50 Harpal kes mg tablet 18:24: mg total) Med ical 33 by mouth Center every 6 (six) hours as needed for Pain. Max Daily Amount: 200 mg mirtazapine 2023-0 Yes 45mg QD Take [address] (REMERON) 5-11 tablet (45 Luke s 45 MG 18:24: mg total) Medical tablet 33 by mouth Center nightly. gabapentin 2023-0 Yes 300mg Q.[id number] Take [address] (NEURONTIN) 5-11 [id number] capsule [facility] 300 MG 18:24: 3D (300 [...] edical 33 by mouth Center nightly. escitalopra 3-0 Yes 10mg QD Take [address] [...] mg tablet 06-13 ity of 00:00: [place] [facility] traMADoL 50 2022-0 Yes Univer s mg tablet 06-13 ity of 00:00: [place] [facility] traMADoL 50 2022-0 Yes Univer s mg tablet 06-13 ity of 00:00: [place] [facility] traMADoL 50 2022-0 Yes Univer s mg tablet 06-13 ity of 00:00: [place] [facility] traMADoL 50 2022-0 Yes Univer s mg tablet 06-13 ity of 00:00: [place] [facility] traMADoL 50 2022-0 Yes Univer s mg tablet 06-13 ity of 00:00: [place] [facility] tc 2022-0 2022- No [id number] 25mCi 25 Univer s 99m-medrona 06-07- millicurie i ty of te 13:50: 13:50 , [place] (DRAXIMAGE 00 :00 Intravenou Med ical MDP-25) s, ONCE, 1 Branch injection dose, On Mon millicurie 06/07/22 at 0900, Routine apixaban 2022- Yes [id number] 5mg Take 1 Univ ers mg tablet 06-07-26 tablet by ity of 00:00: 04:59 mouth in [place] 00 :00 the [facility] Branch and 1 tablet in the evening. Do all this for 30 days. Indication s: history of deep vein thrombosis apixaban 5 2022-2022- Yes 5523 5mg Take 1 Univ ers mg tablet 06-07-26 tablet by ity of 00:00: 04:59 mouth in [place] 00 :00 the [facility] morning Branch and 1 tablet in the evening. Do all this for 30 days. Indication s: history of deep vein thrombosis apixaban 5 2022-2022- Yes 5523 5mg Take 1 Univ ers mg tablet - 05-26 tablet by ity of 00:00: 04:59 mouth in [place] 00 :00 the [facility] morning Branch and 1 tablet [...] by ity of 00:00: 04:59 mouth in [place] 00 :00 the Medical morning Branch and 1 tablet in the evening. Do all this for 30 days. Indication s: history of deep vein thrombosis apixaban 5 2022-2022- No 5523 5mg Take 1 Univ ers mg tablet 4-25 05-22 tablet by ity of 00:00: 00:00 mouth in [place] 00 :00 the Medical morning Branch and 1 tablet in the evening. Do all this for 30 days. Indication s: history of deep vein thrombosis apixaban 5 2022-2022- No 5523 5mg Take 1 Univ ers mg tablet 4-07 07-22 tablet by ity of 00:00: 00:00 mouth in [place] 00 :00 the Medical morning Branch and 1 tablet in the evening. Do all this for 30 days. Indication s: history of deep vein thrombosis acetaminoph 2022- Yes [id number] 500mg Take 1 Univers en 500 mg 4-25 05-06 tablet by ity of tablet 00:00: 04:59 mouth [place] 00 :00 every 6 Medical (six) Branch hours as needed for Pain for up to 10 days. acetaminoph 2022- Yes [id number] 500mg Take 1 Univers en 500 mg 4-25 05-06 tablet by ity of tablet 00:00: 04:59 mouth [place] 00 :00 every 6 Medical (six) Branch hours as needed for Pain for up to 10 days. acetaminoph 2022- Yes [id number] 500mg Take 1 Univers en 500 mg 4-25 05-06 tablet by ity of tablet 00:00: 04:59 mouth [place] 00 :00 every 6 Medical (six) Branch hours as needed for Pain for up to 10 days. acetaminoph 2022- Yes [id number] 500mg Take 1 Univers en 500 mg 4-25 05-06 tablet by ity of tablet 00:00: 04:59 mouth [place] 00 :00 every 6 Medical (six) Branch hours as needed for Pain for up to 10 days. acetaminoph 2022- Yes [id number] 500mg Take 1 Univers en 500 mg 4-25 05-06 tablet by ity of tablet 00:00: 04:59 mouth [place] 00 :00 every 6 Medical (six) Branch hours as needed for Pain for up to 10 days. acetaminoph 2022- Yes [id number] 500mg Take 1 Univers en 500 mg 4-25 05-06 tablet by ity of tablet 00:00: 04:59 mouth [place] 00 :00 every 6 Medical (six) Branch hours as needed for Pain for up to 10 days. acetaminoph 2022- Yes [id number] 500mg Take 1 Univers en 500 mg 4-25 05-06 tablet by ity of tablet 00:00: 04:59 mouth [place] 00 :00 every 6 Medical (six) Branch hours as needed for Pain for up to 10 days. docusate 2022- Yes [id number] 100mg Take 1 Univers 100 mg 4-25 [...] Indication s: acute pain polyethylen 2022- Yes [id number] 17g Take 1 Univers e glycol 4-25 05-03 Packet by ity o f 3350 17 00:00: 04:59 mouth [place] gram powder 00 :00 every 24 Medi gordon (twenty-fo Branch ur) hours as needed for Constipati on for up to 7 days. docusate 0 2022- Yes [id number] 100mg Take 1 Univers 100 mg 4-25 [...] Indication s: acute pain polyethylen 2022-2022- Yes [id number] 17g Take 1 Univers e glycol 4-25 05-03 Packet by ity o f 3350 17 00:00: 04:59 mouth [place] gram powder 00 :00 every 24 Medi gordon (twenty- Branch ur) hours as needed for Constipati on for up to 7 days. docusate 2022- Yes [id number] 100mg Take 1 Univers 100 mg 4-25 05-03 capsule by ity of capsule 00:00: 04:59 mouth in [place] 00 :00 the [facility] morning Branch for 7 days. HYDROcodone 2022- Yes [id number] 1{tbl} Take 1 U nivers -acetaminop 4-25 05-03 tablet by it y of hen 10-325 00:00: 04:59 mouth [place] mg tablet 00 :00 every 6 Medical (six) Branch hours as needed for Pain (scale 7-10) or Pain (scale 4-6) for up to 7 days. Indication s: acute pain polyethylen 2022-2022- Yes [id number] 17g Take 1 Univers e glycol 4-25 05-03 Packet by ity o f 3350 17 00:00: 04:59 mouth [place] gram powder 00 :00 every 24 Medi gordon (twenty-fo Branch ur) hours as needed for Constipati on for up to 7 days. docusate 2022-0 2022- Yes [id number] 100mg Take 1 Univers 100 mg 4-25 05-03 capsule by ity of capsule 00:00: 04:59 mouth in [place] 00 :00 the [facility] morning Branch for 7 days. HYDROcodone 2022- Yes [id number] 1{tbl} Take 1 U nivers -acetaminop 06-07- tablet by it y of hen 10-325 00:00: 04:59 mouth [place] mg tablet 00 :00 every 6 Medical (six) Branch hours as needed for Pain (scale 7-10) or Pain (scale 4-6) for up to 7 days. Indication s: acute pain polyethylen 2022- Yes [id number] 17g Take 1 Univers e glycol 06-07 Packet by ity o f 3350 17 00:00: 04:59 mouth [place] gram powder 00 :00 every 24 Medi gordon (twenty-fo Branch ur) hours as needed for Constipati on for up to 7 days. benzocaine- Yes 1{lozen 1 Lozenge, Univers menthoL 4-23 ge} Oral, ity of (CEPACOL 05:03: Q4HPRN, [place] SORE THROAT 14 Starting Medi gordon (CLAUDIA-MEN)) [facility]22 at Lozenge 0003, Until Discontinu ed, Routine, Sore throat benzocaine- 0 Yes 1{lozen 1 Lozenge, Univers menthoL 4-23 ge} Oral, ity of (CEPACOL 05:03: Q4HPRN, [place] SORE THROAT 14 Starting Medi gordon (CLAUDIA-MEN)) on [place] [address] 06/05/22 at [place] 0003, Until Discontinu ed, Routine, Sore throat iopamidol 2022- No [id number] 80mL 80 mL, Univers (ISOVUE 06-05 Intravenou ity o f 370-500 mL) 01:36: 01:20 s, ONCE, 1 [place] injection 00 :00 dose, On Medica l 80 mL [facility] [place] 06/04/22 at 2044, Routine apixaban 2022- Yes 10mg [Order 1 Univ ers (ELIQUIS) 06-05 Start] ity of tablet 10 01:00: 00:59 Name: [place] mg 00 :00 apixaban Medical (ELIQUIS) Branch tablet 10 mg Signed Summary: 10 mg, Oral, BID, 14 doses, First dose on [facility] 06/04/22 at 1999, Last dose on [facility] 06/11/22 at 0800, Routine
Indicatio ns: DVT/PE [Order 1 End] [Order 2 Start] Name: apixaban (ELIQUIS) tablet 5 mg Signed Summary: 5 mg, Oral, BID, First dose on [facility] 06/11/22 at 1999, Until Discontinu ed, Routine
Indicatio ns: DVT/PE [Order 2 End] apixaban 2022- Yes 10mg [Order 1 Univ ers (ELIQUIS) 06-05 Start] ity of tablet 10 01:00: 00:59 Name: [place] mg 00 :00 apixaban [facility] (ELIQUIS) [place] tablet 10 mg Signed Summary: 10 mg, Oral, BID, 14 doses, First dose on [facility] 06/04/22 at 1999, Last dose on [facility] 06/11/22 at 0800, Routine
Indicatio ns: DVT/PE [Order 1 End] [Order 2 Start] Name: apixaban (ELIQUIS) tablet 5 mg Signed Summary: 5 mg, Oral, BID, First dose on [facility] 06/11/22 at 1999, Until Discontinu ed, Routine
Indicatio ns: DVT/PE [Order 2 End] bisacodyL Yes 10mg 10 mg, Univer s (DULCOLAX) 06-04 Rectal, ity of suppository 15:25: QDAILYPRN, [place] 10 mg 51 Starting Medical on [facility] [place] 06/04/22 at 1025, Until Discontinu ed, Routine, Constipati on bisacodyL Yes 10mg 10 mg, Univer s (DULCOLAX) 06-04 Rectal, ity of suppository 15:25: QDAILYPRN, [place] 10 mg 51 Starting Medical on [facility] [place] 06/04/22 at 1025, Until Discontinu ed, Routine, [...] Yes 20mg 20 mg, Unive rs (PRILOSEC) -22 Oral, ity of capsule 20 02:43: QDAILYPRN, [...] Until Discontinu ed, Routine, PACU heparin 2022-0 202- No PRN, Univers 10,000 06-03 Starting ity of units in NS 14:25: 07:25 on Mon [place] 1000 mL for 00 :55 06/03/22 at Ne dical vascular 0925, Branch Intra-op heparin 2022-0 202- No 0U/h 0-3,050 Univer s 25,000 06-02- [...] INITIAL INFUSION RATE.&nbsp ; _ &nb sp;FOR [facility], [facility], AND [facility] ONLY &nbs p; - aPTT < [...] Oral, ity of OIL EXTRA 14:00: DAILY, [place] HEAVY) oral 00 First dose Me dical liquid 30 on [place] Branch mL 06/02/22 at 0900, Until Discontinu ed, Routine mineral oil Yes 30mL 30 mL, Univ ers (MINERAL 4-20 Oral, ity of OIL EXTRA 14:00: DAILY, [place] HEAVY) oral 00 First dose Me dical liquid 30 on [place] Branch mL 06/02/22 at 0900, Until Discontinu ed, Routine apixaban 2022- Yes 10mg [Order 1 Univ ers (ELIQUIS) 05-3125 Start] ity of tablet 10 15:30: 12:59 [...] s mg 00 First dose Medical on [facility] 05/31/22 at 0900, Until Discontinu ed, Routine docusate 0 Yes 100mg 100 mg, Unive rs (COLACE) 4-18 Oral, ity of capsule 100 14:00: DAILY, [place] mg 00 First dose Medical on [facility] 05/31/22 at 0900, Until Discontinu ed, Routine docusate 0 Yes 100mg 100 mg, Unive rs (COLACE) 4-18 Oral, ity of capsule 100 14:00: DAILY, [place] mg 00 First dose Medical on [facility] 05/31/22 at 0900, Until Discontinu ed, Routine docusate 0 Yes 100mg 100 mg, Unive rs (COLACE) 4-18 Oral, ity of capsule 100 14:00: DAILY, [place] mg 00 First dose Medical on [facility] 05/31/22 at 0900, Until Discontinu ed, [...] INITIAL INFUSION RATE.&nbsp ; _ &nb sp;FOR [facility], AND [facility] ONLY &nbs p; - aPTT < [...] of ) injection 02:47: on Mon05/30/[address] Until Discontinu ed, Routine, Intra-op iopamidol 2022-0 Yes PRN, Univers (ISOVUE-300 4-18 Starting ity of ) injection 02:47: on Mon05/30/[address] Until Discontinu ed, Routine, Intra-op iopamidol 2022-0 Yes PRN, Univers (ISOVUE-300 4-18 Starting ity of ) injection 02:47: on Mon05/30/[address] Until Discontinu ed, Routine, Intra-op heparin 2022-0 Yes PRN, Univers 10,000 4-18 Starting ity of units in [place] 01:26: on [place] 1000 mL for 00 05/30/22 at Ne dical vascular 2025, Branch Intra-op heparin 2022-0 [...] all infusion sites combined.< br> KCL 3-0 2023- No 20meq 20 mEq, Univers (KLOR-CON 05-30 Oral, ity of M20) tablet 11:15: 11:12 ONCE, 1 [place] 20 mEq 00 :00 dose, On Medical Mon05/30/22 at 0615, Routine heparin 2022-0 2022- [...] INITIAL INFUSION RATE.&nbsp ; _ &nb sp;FOR [facility], [facility], AND [facility] ONLY &nbs p; - aPTT < [...] 03:31: Push, [place] 10 mg 53 Q4HPRN, [facility] Starting Branch on [place] 05/29/22 at 2231, Until Discontinu ed, Routine, SBP > 160 and HR > 70 labetaloL 3-0 Yes 10mg 10 mg, Univer s (NORMODYNE) 4-17 Slow IV ity o f injection 03:31: Push, [place] 10 mg 53 Q4HPRN, [facility] Starting Branch on [place] 05/29/22 at 2231, Until Discontinu ed, Routine, SBP > 160 and HR > 70 traMADoL 2022-0 Yes 50mg 50 mg, Univers (ULTRAM) 4-17 Oral, Q6H, ity o f tablet 50 01:45: First dose [place] mg 00 on [facility] 05/29/22 at Branch 2044, Until Discontinu ed, Routine traMADoL 2022-0 Yes 50mg 50 mg, Univers (ULTRAM) 4-17 Oral, Q6H, ity o f tablet 50 01:45: First dose [place] mg 00 on [facility] 05/29/22 at Branch 2044, Until Discontinu ed, Routine traMADoL 2022-0 Yes 50mg 50 mg, Univers (ULTRAM) 4-17 Oral, Q6H, ity o f tablet 50 01:45: First dose [place] mg 00 on [facility] 05/29/22 at Branch 2044, Until Discontinu ed, Routine traMADoL 2022-0 Yes 50mg 50 mg, Univers (ULTRAM) 4-17 Oral, Q6H, ity o f tablet 50 01:45: First dose [place] mg 00 on [facility] 05/29/22 at Branch 2044, Until Discontinu ed, Routine HYDROcodone 2022-0 Yes 1{tbl} 1 tablet, Univers -acetaminop 4-17 Oral, ity of hen (NORCO) 01:37: Q6HPRN, [place] 10-325 mg 54 Starting Medica l tablet 1 on [facility] tablet 05/29/22 at 2036, Until Discontinu ed, [...] at 1215, Until Discontinu ed, Routine acetaminoph 202-0 Yes 500mg 500 mg, Un mary en [...] 2022- No 1{tbl} 1 tablet, Univers -acetaminop 05-2917 Oral, ity of hen (NORCO 17:03: 01:38 Q6HPRN, [place] 5) 5-325 mg 06 :07 Starting [facility] tablet 1 on [facility] tablet 05/29/22 at 1203, Until 05/29/22 at [...] 1046
30 0 units/hr, non-titrat able
iodixanoL 0 Yes PRN, Univers (VISIPAQUE 4-16 Starting ity o f 270-150 mL) 13:50: [place] injection 00 05/29/22 at [facility] 0850, Branch Until Discontinu ed, Routine, Intra-op iodixanoL 2022-0 Yes PRN, Univers (VISIPAQUE 4-16 Starting ity o f 270-150 mL) 13:50: on [place] injection 00 05/29/22 at [facility] 0850, Branch Until Discontinu ed, Routine, Intra-op iodixanoL 2023-0 Yes PRN, Univers (VISIPAQUE 4-16 Starting ity o f 270-150 mL) 13:50: [place] injection 05/29/22 at [facility] 0850, [place] Until Discontinu ed, Routine, Intra-op iodixanoL 3-0 Yes PRN, Univers (VISIPAQUE 4-16 Starting ity o f 270-150 mL) 13:50: [place] 05/29/22 at [facility] 0850, [place] Until Discontinu ed, Routine, Intra-op lidocaine 2023-0 Yes PRN, Univers 1% (PF) 4-16 Starting ity of (XYLOCAINE) 13:00: [place] 05/29/22 at [facility] 0800, [place] Until Discontinu ed, Routine, Intra-op lidocaine 3-0 Yes PRN, Univers 1% (PF) 4-16 Starting ity of (XYLOCAINE) 13:00: [place] injection 05/29/22 at [facility] 0800, [place] Until Discontinu ed, Routine, Intra-op lidocaine 3-0 Yes PRN, Univers 1% (PF) 4-16 Starting ity of (XYLOCAINE) 13:00: [place] injection 05/29/22 at [facility] 0800, [place] Until Discontinu ed, Routine, Intra-op lidocaine 3-0 Yes PRN, Univers 1% (PF) 4-16 Starting ity of (XYLOCAINE) 13:00: [place] injection 05/29/22 at [facility] 0800, [place] Until Discontinu ed, Routine, Intra-op alteplase 2022-0 2023- No 1mg/h 1 mg/hr Uni vers [...] sites combined.< br> alteplase 2022-0 2023- No 1mg/h 1 mg/hr Uni vers [...] mg 00 :00 dose, On Medical Sat [place] 05/28/22 at 1915, Routine HEPARIN 2022- No 4000U 4,000 Univers SODIUM 05-2815 Units, IV ity of (PORCINE) 16:30: 17:27 [...] Rang e, Dosing and Testing: &nbs p;FOR [facility], [facility], AND [facility] ONLY &nbs p; [...] , Starting [place] mL vial) 36 on [facility] Medical for 05/28/22 at Branch Rebolusing 1123, Until Discontinu ed, Routine
Dosing based on aPPT testing parameters (refer to continuous heparin drip order).
sulfur 2022- No [id number] 5mL 5 mL, Univ ers hexafluorid 05-27 Intravenou i ty of e microsphr 18:30: 18:30 s, ONCE, 1 [place] (LUMASON) 00 :00 dose, On Medica l injection 5 Mon [place] mL 05/27/22 at 1330, Routine
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 : HAROON MOYER enoxaparin 2022- No 1mg/kg 90 mg Uni vers (LOVENOX) 05-27 (rounded ity o f injection 14:07: 16:25 [place] 86.5 [place] 90 mg 50 :10 mg = 1 Medical mg/kg Branch ?86.5 kg), [facility], Q[facility], First dose on Mon05/27/22 at 2000, Until Discontinu ed, Routine polyethylen 2023-0 Yes 17g 17 g, Unive rs e glycol 4-14 Oral, ity of 3350 powder 14:00: DAILY, [place] 17 g 00 First dose Medical on Mon [place] 05/27/22 at 0900, Until Discontinu ed, Routine polyethylen 2023-0 Yes 17g 17 g, Unive rs e glycol 4-14 Oral, ity of 3350 powder 14:00: DAILY, [place] 17 g 00 First dose Medical on Mon [place] 05/27/22 at 0900, Until Discontinu ed, Routine polyethylen 2023-0 Yes 17g 17 g, Unive rs e glycol 4-14 Oral, ity of 3350 powder 14:00: DAILY, [place] 17 g 00 First dose Medical on Mon [place] 05/27/22 at 0900, Until Discontinu ed, Routine polyethylen 2023-0 Yes 17g 17 g, Unive rs e glycol 4-14 Oral, ity of 3350 powder 14:00: DAILY, [place] 17 g 00 First dose Medical on Mon [place] 05/27/22 at 0900, Until Discontinu ed, Routine [...] Until Discontinu ed, Routine iopamidol 2022- No [id number] 100mL 100 mL, Univers (ISOVUE 05-27 [id number] Intravenou ity of 370-500 mL) 12:15: 12:15 s, ONCE, 1 [place] injection 00 :00 dose, On Medica l 100 mL [facility] 05/27/22 at 0715, Routine ALPRAZolam 2022- No .5mg 0.5 mg, Uni vers (XANAX) 05-27 Oral, ity of tablet 0.5 05:45: 05:15 ONCE, 1 [place] mg 00 :00 dose, On Medical [...] :15 Starting Medi gordon tablet [address] [facility] tablet 05/26/22 at 2344, Until 05/29/22 at 1203, Routine, Pain (scale 4-6) ondansetron 3-0 Yes 4mg 4 mg, Slow Univers (ZOFRAN 4-14 IV Push, ity of (PF)) 01:30: Q6HPRN, [place] injection 4 58 Starting Medi gordon mg on [facility] Branch 05/26/22 at 2030, Until Discontinu ed, Routine, Nausea and Vomiting (N/V) ondansetron 2023-0 Yes 4mg 4 mg, Slow Univers (ZOFRAN 4-14 IV Push, ity of (PF)) 01:30: Q6HPRN, [place] injection 4 58 Starting Medi gordon mg on [facility] Branch 05/26/22 at 2030, Until Discontinu ed, Routine, Nausea and Vomiting (N/V) ondansetron 2023-0 Yes 4mg 4 mg, Slow Univers (ZOFRAN 4-14 IV Push, ity of (PF)) 01:30: Q6HPRN, [place] injection 4 58 Starting Medi gordon mg on [facility] Branch 05/26/22 at 2030, Until Discontinu ed, Routine, Nausea and Vomiting (N/V) ondansetron 3-0 Yes 4mg 4 mg, Slow Univers (ZOFRAN 4-14 IV Push, ity of (PF)) 01:30: Q6HPRN, [place] injection 4 58 Starting Medi gordon mg on [facility] Branch 05/26/22 at 2030, Until Discontinu ed, Routine, Nausea and Vomiting (N/V) morpHINE (2 2022-0 2022- No 4mg 4 mg, Slow Univers [...] [place] Branch 05/26/22 at 1900, Routine traMADoL No 50mg 50 mg, Univer s (ULTRAM) 05-26 Oral, ity of tablet 50 23:45: 23:10 ONCE, 1 [place] mg 00 :00 dose, On [facility] 05/26/22 at 1845, Routine gabapentin No 300mg 300 mg, Un mary (NEURONTIN) 05-26 Oral, ity of capsule 300 23:00: 23:10 ONCE, 1 [place] mg 00 :00 dose, On [facility] 05/26/22 at 1800, MICHELLE methylpredn No 125mg 125 mg, U nivers isolone sod 05-26 Slow IV ity of succ 22:15: 21:28 Push, [place] (SOLU-MEDRO 00 :00 ONCE, 1 Medic al L) dose, On Branch injection [place] 125 mg 05/26/22 at 1715, MICHELLE furosemide No 40mg 40 mg, IV U nivers (LASIX) 05-26 Push, ity of injection 21:15: 21:19 ONCE, 1 [place] 40 mg 00 :00 dose, On [facility] 05/26/22 at 1615, MICHELLE ketorolac No 30mg 30 mg, Unive rs (TORADOL) 05-23 Intramuscu ity of injection 23:00: 22:35 lar, ONCE, [place] 30 mg 00 :00 1 dose, On [facility] 05/23/22 at 1800, Routine diazePAM No 2.5mg 2.5 mg, Univ ers (VALIUM) 05-23 Oral, ity of tablet 2.5 22:45: 23:09 ONCE, 1 [place] mg 00 :00 dose, On [facility] 05/23/22 at 1745, MICHELLE HYDROcodone 2022- No 1{tbl} 1 tablet, Univers -acetaminop 05-23 Oral, ONCE i ty of hen (NORCO) 11:45: 11:00 NOW, 1 [place] 10-325 mg 00 :00 dose, On Medica l tablet 1 [facility] tablet 05/23/22 at 0645, MICHELLE gabapentin 2022-0 202- No 600mg 600 mg, Un mary (NEURONTIN) 05-23 Oral, ity of capsule 600 09:00: 09:09 ONCE, 1 [place] mg 00 :00 dose, On Medical [facility] Branch 05/23/22 at 0400, MICHELLE dexamethaso 2022-0 2022- No 10mg 10 mg, Uni vers ne sod phos 05-23 Intramuscu i ty of PF 09:00: 09:07 lar, ONCE, [place] injection 00 :00 1 dose, On Medi gordon 10 mg [facility] 05/23/22 at 0400, 1 mL gabapentin 3-0 Yes [id number] 300mg Take 1 Univers 300 mg 4-10 capsule by ity of capsule 00:00: mouth in [place] [address] the [facility] and 1 capsule at noon and 1 capsule in the evening. gabapentin 2023-0 Yes [id number] 300mg Take 1 Univers 300 mg 4-10 capsule by ity of capsule 00:00: mouth in [place] [address] the [facility] morning Branch and 1 capsule at noon and 1 capsule in the evening. gabapentin 2023-0 Yes [id number] 300mg Take 1 Univers 300 mg 4-10 capsule by ity of capsule 00:00: mouth in [place] [address] the [facility] morning [place] and 1 capsule at noon and 1 capsule in the evening. ketorolac 2023-0 Yes [id number] 10mg Take 1 U nivers 10 mg 4-10 tablet by ity of tablet 00:00: mouth [place] [address] every 6 Medical (six) Branch hours as needed for Pain (scale 7-10). gabapentin 2023-0 Yes [id number] 300mg Take 1 Univers 300 mg 4-10 capsule by ity of capsule 00:00: mouth in [place] [address] the [facility] morning [place] and 1 capsule at noon and 1 capsule in the evening. ketorolac 2023-0 Yes [id number] 10mg Take 1 U nivers 10 mg 4-10 tablet by ity of tablet 00:00: mouth [place] [address] every 6 Medical (six) Branch hours as needed for Pain (scale 7-10). gabapentin 2023-0 Yes [id number] 300mg Take 1 Univers 300 mg 4-10 capsule by ity of capsule 00:00: mouth in [place] 00 the Medical morning Branch and 1 capsule at noon and 1 capsule in the evening. ketorolac 2023-0 Yes [id number] 10mg Take 1 U nivers 10 mg 4-10 tablet by ity of tablet 00:00: mouth [place] 00 every 6 Medical (six) Branch hours as needed for Pain (scale 7-10). gabapentin 2023-0 Yes [id number] 300mg Take 1 Univers 300 mg 4-10 capsule by ity of capsule 00:00: mouth in [place] 00 the Medical morning Branch and 1 capsule at noon and 1 capsule in the evening. ketorolac 2023-0 Yes [id number] 10mg Take 1 U nivers 10 mg 4-10 tablet by ity of tablet 00:00: mouth [place] 00 every 6 Medical (six) Branch hours as needed for Pain (scale 7-10). gabapentin 2023-0 Yes [id number] 300mg Take 1 Univers 300 mg 4-10 capsule by ity of capsule 00:00: mouth in [place] 00 the Medical morning Branch and 1 capsule at noon and 1 capsule in the evening. ketorolac 2023-0 Yes [id number] 10mg Take 1 U nivers 10 mg 4-10 tablet by ity of tablet 00:00: mouth [place] 00 every 6 Medical (six) Branch hours as needed for Pain (scale 7-10). gabapentin 2023-0 Yes [id number] 300mg Take 1 Univers 300 mg 4-10 capsule by ity of capsule 00:00: mouth in [place] 00 the Medical morning Branch and 1 capsule at noon and 1 capsule in the evening. ketorolac 2023-0 Yes [id number] 10mg Take 1 U nivers 10 mg 4-10 tablet by ity of tablet 00:00: mouth [place] 00 every 6 Medical (six) Branch hours as needed for Pain (scale 7-10). gabapentin 2023-0 2023- No [id number] 300mg Take 1 Univers 300 mg 4-10 04-25 capsule by ity of capsule 00:00: 00:00 mouth in [place] 00 :00 the Medical morning Branch and 1 capsule at noon and 1 capsule in the evening. methocarbam 2023-0 2023- No [id number] 500mg Take 1 Univers oL 500 mg 4-10 04-25 tablet by ity of tablet 00:00: 00:00 mouth 4 [place] 00 :00 (four) Medical times Branch daily for 7 days. ketorolac 2022- No [id number] 10mg Take 1 Univers 10 mg 4-10 04-25 tablet by ity of tablet 00:00: 00:00 mouth [place] 00 :00 every 6 Medical (six) Branch hours as needed for Pain (scale 7-10). methocarbam 2022- Yes [id number] 500mg Take 1 Univers oL 500 mg 4-10 04-18 tablet by ity of tablet 00:00: 04:59 mouth 4 [place] 00 :00 (four) Medical times Branch daily for 7 days. methocarbam 2022- Yes [id number] 500mg Take 1 Univers oL 500 mg 4-10 04-18 tablet by ity of tablet 00:00: 04:59 mouth 4 [place] 00 :00 ([facility]) Medical times Branch daily for 7 days. methocarbam 2022- Yes [id number] 500mg Take 1 Univers oL 500 mg 4-10 04-18 tablet by ity of tablet 00:00: 04:59 mouth 4 [place] 00 :00 ([facility]) Medical times Branch daily for 7 days. methocarbam 2022- No [id number] 500mg Take 1 Univers oL 500 mg 4-10 04-18 tablet by ity of tablet 00:00: 04:59 mouth 4 [place] 00 :00 (four) Medical times Branch daily for 7 days. methocarbam 2022- No [id number] 500mg Take 1 Univers oL 500 mg 4-10 04-18 tablet by ity of tablet 00:00: 04:59 mouth 4 [place] 00 :00 (four) Medical times Branch daily for 7 days. mirtazapine 2022-0 Yes [id number] 45mg Take 1 Univers 45 mg 2-23 tablet by ity of tablet 00:00: mouth at [place] 00 bedtime. Medical Branch mirtazapine 2022-0 Yes [id number] 45mg Take 1 Univers 45 mg 2-23 tablet by ity of tablet 00:00: mouth at [place] 00 bedtime. Medical Branch mirtazapine 3-0 Yes [id number] 45mg Take 1 Univers 45 mg 2-23 tablet by ity of tablet 00:00: mouth at [place] [address] bedtime. Medical Branch mirtazapine 3-0 Yes [id number] 45mg Take 1 Univers 45 mg 2-23 tablet by ity of tablet 00:00: mouth at [place] [address] bedtime. Medical Branch mirtazapine 2022-0 Yes [id number] 45mg Take 1 Univers 45 mg 2-23 tablet by ity of tablet 00:00: mouth at [place] [address] bedtime. Medical Branch mirtazapine 2022-0 Yes [id number] 45mg Take 1 Univers 45 mg 2-23 tablet by ity of tablet 00:00: mouth at [place] [address] bedtime. Medical Branch mirtazapine 2022-0 Yes [id number] 45mg Take 1 Univers 45 mg 2-23 tablet by ity of tablet 00:00: mouth at [place] [address] bedtime. Medical Branch mirtazapine 2022-0 Yes [id number] 45mg Take 1 Univers 45 mg 2-23 tablet by ity of tablet 00:00: mouth at [place] [address] bedtime. Medical Branch mirtazapine 2022-0 Yes [id number] 45mg Take 1 Univers 45 mg 2-23 tablet by ity of tablet 00:00: mouth at [place] [address] bedtime. Medical Branch mirtazapine 2022-0 Yes [id number] 45mg Take 1 Univers 45 mg 2-23 tablet by ity of tablet 00:00: mouth at [place] [address] bedtime. Medical Branch mirtazapine 2022-0 Yes [id number] 45mg Take 1 Univers 45 mg 2-23 tablet by ity of tablet 00:00: mouth at [place] [address] bedtime. Medical Branch mirtazapine 3-0 Yes [id number] 45mg Take 1 Univers 45 mg 2-23 tablet by ity of tablet 00:00: mouth at [place] [address] bedtime. Medical Branch mirtazapine 3-0 Yes [id number] 45mg Take 1 Univers 45 mg 2-23 tablet by ity of tablet 00:00: mouth at [place] [address] bedtime. Medical Branch mirtazapine 3-0 Yes [id number] 45mg Take 1 Univers 45 mg 2-23 tablet by ity of tablet 00:00: mouth at [place] [address] bedtime. Medical Branch mirtazapine 2022-0 Yes [id number] 45mg Take 1 Univers 45 mg 2-23 tablet by ity of tablet 00:00: mouth at [place] bedtime. Medical Branch mirtazapine 2022-0 Yes [id number] 45mg Take 1 Univers 45 mg 2-23 tablet by ity of tablet 00:00: mouth at [place] [address] bedtime. Medical Branch mirtazapine 2022-0 Yes [id number] 45mg Take 1 Univers 45 mg 2-23 tablet by ity of tablet 00:00: mouth at [place] [address] bedtime. Medical Branch mirtazapine 2022-0 Yes [id number] 45mg Take 1 Univers 45 mg 2-23 tablet by ity of tablet 00:00: mouth at [place] [address] bedtime. Medical Branch mirtazapine 2022-0 Yes [id number] 45mg Take 1 Univers 45 mg 2-23 tablet by ity of tablet 00:00: mouth at [place] [address] bedtime. Medical Branch mirtazapine 2022-0 Yes [id number] 45mg Take 1 Univers 45 mg 2-23 tablet by ity of tablet 00:00: mouth at [place] [address] bedtime. Medical Branch mirtazapine 2022-0 Yes [id number] 45mg Take 1 Univers 45 mg 2-23 tablet by ity of tablet 00:00: mouth at [place] [address] bedtime. Medical Branch mirtazapine 2022-0 Yes [id number] 45mg Take 1 Univers 45 mg 2-23 tablet by ity of tablet 00:00: mouth at [place] [address] bedtime. Medical Branch mirtazapine 2022-0 Yes [id number] 45mg Take 1 Univers 45 mg 2-23 tablet by ity of tablet 00:00: mouth at [place] [address] bedtime. Medical Branch mirtazapine 2022-0 Yes [id number] 45mg Take 1 Univers 45 mg 2-23 tablet by ity of tablet 00:00: mouth at [place] [address] bedtime. Medical Branch mirtazapine 2022-0 Yes [id number] 45mg Take 1 Univers 45 mg 2-23 tablet by ity of tablet 00:00: mouth at [place] [address] bedtime. Medical Branch mirtazapine 3-0 2023- No [id number] 45mg Take 1 Univers 45 mg 2-23 04-25 tablet by ity of tablet 00:00: 00:00 mouth at [place] 00 :00 bedtime. Medical Branch mirtazapine 2021- Yes [id number] 30mg Take 1 Univers 30 mg 2-21 tablet by ity of tablet 00:00: mouth at [place] [address] bedtime. Medical Branch mirtazapine 2021- Yes [id number] 30mg Take 1 Univers 30 mg 2-21 tablet by ity of tablet 00:00: mouth at [place] [address] bedtime. Medical Branch mirtazapine 2021- Yes [id number] 30mg Take 1 Univers 30 mg 2-21 tablet by ity of tablet 00:00: mouth at [place] [address] bedtime. Medical Branch mirtazapine 2021- Yes [id number] 30mg Take 1 Univers 30 mg 2-21 tablet by ity of tablet 00:00: mouth at [place] [address] bedtime. Medical Branch mirtazapine 2021- Yes [id number] 30mg Take 1 Univers 30 mg 2-21 tablet by ity of tablet 00:00: mouth at [place] [address] bedtime. Medical Branch mirtazapine 2021- Yes [id number] 30mg Take 1 Univers 30 mg 2-21 tablet by ity of tablet 00:00: mouth at [place] [address] bedtime. Medical Branch mirtazapine 2021-02 Yes [id number] 30mg Take 1 Univers 30 mg 2-21 tablet by ity of tablet 00:00: mouth at [place] [address] bedtime. Medical Branch mirtazapine 2021- Yes [id number] 30mg Take 1 Univers 30 mg 2-21 tablet by ity of tablet 00:00: mouth at [place] [address] bedtime. Medical Branch mirtazapine 2021- Yes [id number] 30mg Take 1 Univers 30 mg 2-21 tablet by ity of tablet 00:00: mouth at [place] [address] bedtime. Medical Branch mirtazapine 2021-2022- No [id number] 30mg Take 1 Univers 30 mg 2-21 02-23 tablet by ity of tablet 00:00: 00:00 mouth at [place] 00 :00 bedtime. [facility] Branch mirtazapine 2021-02- No [id number] 30mg Take 1 Univers 30 mg 2-21 02-23 tablet by ity of tablet 00:00: 00:00 mouth at [place] 00 :00 bedtime. Medical Branch traMADoL 50 2021-02 Yes 50mg Take 1 Univ ers mg tablet 2-08 tablet by ity o f 00:00: mouth in [place] the Medical morning Branch and 1 tablet at noon and 1 tablet in the evening. traMADoL 50 2021-02 Yes 50mg Take 1 Univ ers mg tablet 2-08 tablet by ity o f 00:00: mouth in [place] 00 the Medical morning Branch and 1 tablet at noon and 1 tablet in the evening. traMADoL 50 2021-02 Yes 50mg Take 1 [facility] mg tablet 2-08 tablet by ity o f 00:00: mouth in [place] 00 the Medical morning Branch and 1 tablet at noon and 1 tablet in the evening. traMADoL 50 2021-02 Yes 50mg Take 1 [facility] ers mg tablet 2-08 tablet by ity o f 00:00: mouth in [place] the Medical morning Branch and 1 tablet at noon and 1 tablet in the evening. traMADoL 50 2021-02 Yes 50mg Take 1 [facility] ers mg tablet 2-08 tablet by ity o f 00:00: mouth in [place] the Medical morning Branch and 1 tablet at noon and 1 tablet in the evening. traMADoL 50 2021-02 Yes 50mg Take 1 [facility] ers mg tablet 2-08 tablet by ity o f 00:00: mouth in [place] the Medical morning Branch and 1 tablet at noon and 1 tablet in the evening. traMADoL 50 2021-02 Yes 50mg Take 1 [facility] ers mg tablet 2-08 tablet by ity o f 00:00: mouth in [place] the Medical morning Branch and 1 tablet at noon and 1 tablet in the evening. traMADoL 50 2021-02 Yes 50mg Take 1 [facility] ers mg tablet 2-08 tablet by ity o f 00:00: mouth in [place] the Medical morning Branch and 1 tablet at noon and 1 tablet in the evening. traMADoL 50 2021- Yes 50mg Take 1 [facility] ers mg tablet 2-08 tablet by ity o f 00:00: mouth in [place] [address] the Medical morning Branch and 1 tablet at noon and 1 tablet in the evening. traMADoL 50 2021-02 Yes 50mg Take 1 [facility] mg tablet 2-08 tablet by ity o f 00:00: mouth in [place] [address] the Medical morning Branch and 1 tablet at noon and 1 tablet in the evening. traMADoL 50 2021-02 Yes 50mg Take 1 [facility] mg tablet 2-08 tablet by ity o f 00:00: mouth in [place] 00 the Medical morning Branch and 1 tablet at noon and 1 tablet in the evening. traMADoL 50 2021-02 Yes 50mg Take 1 [facility] ers mg tablet 2-08 tablet by ity o f 00:00: mouth in [place] 00 the Medical morning Branch and 1 tablet at noon and 1 tablet in the evening. traMADoL 50 2021-02 Yes 50mg Take 1 [facility] mg tablet 2-08 tablet by ity o f 00:00: mouth in [place] 00 the Medical morning Branch and 1 tablet at noon and 1 tablet in the evening. traMADoL 50 2021-02 Yes 50mg Take 1 [facility] mg tablet 2-08 tablet by ity o f 00:00: mouth in [place] [address] the Medical morning Branch and 1 tablet at noon and 1 tablet in the evening. traMADoL 50 2021-02 Yes 50mg Take 1 [facility] mg tablet 2-08 tablet by ity o f 00:00: mouth in [place] [address] the Medical morning Branch and 1 tablet at noon and 1 tablet in the evening. traMADoL 50 2021-02 Yes 50mg Take 1 [facility] mg tablet 2-08 tablet by ity o f 00:00: mouth in [place] the Medical morning Branch and 1 tablet at noon and 1 tablet in the evening. traMADoL 50 2021-02 Yes 50mg Take 1 [facility] mg tablet 2-08 tablet by ity o f 00:00: mouth in [place] the Medical morning Branch and 1 tablet at noon and 1 tablet in the evening. traMADoL 50 2021-02 Yes 50mg Take 1 [facility] mg tablet 2-08 tablet by ity o f 00:00: mouth in [place] 00 the Medical morning Branch and 1 tablet at noon and 1 tablet in the evening. traMADoL 50 2021-02 Yes 50mg Take 50 mg [facility] mg tablet 2-08 by mouth ity of 00:00: in the [place] [address] morning Medical and 50 mg Branch at noon and 50 mg in the evening. traMADoL 50 2021-02 Yes 50mg Take 50 mg [facility] mg tablet 2-08 by mouth ity of 00:00: in the [place] morning Medical and 50 mg Branch at noon and 50 mg in the evening. traMADoL 50 2021-02 Yes 50mg Take 50 mg [facility] mg tablet 2-08 by mouth ity of 00:00: in the [place] 00 morning Medical and 50 mg Branch at noon and 50 mg in the evening. traMADoL 50 2021- Yes 50mg Take 50 mg [facility] mg tablet 2-08 by mouth ity of 00:00: in the [place] 00 morning Medical and 50 mg Branch at noon and 50 mg in the evening. traMADoL 50 2021-02 Yes 50mg Take 50 mg [facility] mg tablet 2-08 by mouth ity of 00:00: in the [place] morning Medical and 50 mg Branch at noon and 50 mg in the evening. traMADoL 50 2021-02 Yes 50mg Take 50 mg [facility] mg tablet 2-08 by mouth ity of 00:00: in the [place] morning Medical and 50 mg Branch at noon and 50 mg in the evening. traMADoL 50 2021-02 Yes 50mg Take 50 mg [facility] mg tablet 2-08 by mouth ity of 00:00: in the [place] morning Medical and 50 mg Branch at noon and 50 mg in the evening. traMADoL 50 2021-02 Yes 50mg Take 50 mg [facility] mg tablet 2-08 by mouth ity of 00:00: in the [place] morning Medical and 50 mg Branch at noon and 50 mg in the evening. traMADoL 50 2021-02 Yes 50mg Take 50 mg [facility] mg tablet 2-08 by mouth ity of 00:00: in the [place] morning Medical and 50 mg Branch at noon and 50 mg in the evening. traMADoL 50 2021-02 Yes 50mg Take 50 mg [facility] mg tablet 2-08 by mouth ity of 00:00: in the [place] morning Medical and 50 mg Branch at noon and 50 mg in the evening. traMADoL 50 2021-02 Yes 50mg Take 50 mg [facility] mg tablet 2-08 by mouth ity of 00:00: in the [place] morning Medical and 50 mg Branch at noon and 50 mg in the evening. traMADoL 50 2021-1 Yes 50mg Take 50 mg [facility] mg tablet 2-08 by mouth ity of 00:00: in the [place] 00 morning Medical and 50 mg Branch at noon and 50 mg in the evening. traMADoL 50 2021- Yes 50mg Take 50 mg [facility] mg tablet 2-08 by mouth ity of 00:00: in the [place] 00 morning Medical and 50 mg Branch at noon and 50 mg in the evening. traMADoL 50 2021-02 Yes 50mg Take 50 mg [facility] mg tablet 2-08 by mouth ity of 00:00: in the [place] 00 morning Medical and 50 mg Branch at noon and 50 mg in the evening. traMADoL 50 2021-02 Yes 50mg Take 1 [facility] mg tablet 2-08 tablet by ity o f 00:00: mouth in [place] 00 the Medical morning Branch and 1 tablet at noon and 1 tablet in the evening. traMADoL 50 2021-02 Yes 50mg Take 1 [facility] mg tablet 2-08 tablet by ity o f 00:00: mouth in [place] 00 the Medical morning Branch and 1 tablet at noon and 1 tablet in the evening. traMADoL 50 2021-02 Yes 50mg Take 1 [facility] ers mg tablet 2-08 tablet by ity o f 00:00: mouth in [place] 00 the Medical morning Branch and 1 tablet at noon and 1 tablet in the evening. traMADoL 50 2021-02 No 50mg Take 1 [facility] vers mg tablet 2-08 04-25 tablet by ity of 00:00: 00:00 mouth in [place] 00 :00 the Medical morning Branch and 1 tablet at noon and 1 tablet in the evening. mirtazapine 2021-02 Yes [id number] 15mg Take 1 [facility] 15 mg 1-21 tablet by ity of tablet 00:00: mouth at [place] [address] bedtime. Medical Branch mirtazapine 2021-02 Yes [id number] 15mg Take 1 [facility] 15 mg 1-21 tablet by ity of tablet 00:00: mouth at [place] [address] bedtime. Medical Branch mirtazapine 2021-02 Yes [id number] 15mg Take 1 [facility] 15 mg 1-21 tablet by ity of tablet 00:00: mouth at [place] 00 bedtime. [facility] Branch mirtazapine 2021-02- No [id number] 15mg Take 1 Univers 15 mg 1-21 12-21 tablet by ity of tablet 00:00: 00:00 mouth at [place] 00 :00 bedtime. [facility] Branch mirtazapine 2021-02- No [id number] 15mg Take 1 Univers 15 mg 1-21 12-21 tablet by ity of tablet 00:00: 00:00 mouth at [place] 00 :00 bedtime. Medical Branch vortioxetin 2021-02 Yes [id number] 5mg Take 1 Univers e 0-20 tablet by ity of (TRINTELLIX 00:00: mouth in [place] ) 5 mg Tab 00 the Medical morning. Branch vortioxetin 2021-02 Yes [id number] 5mg Take 1 Univers e 0-20 tablet by ity of (TRINTELLIX 00:00: mouth in [place] ) 5 mg Tab 00 the Medical morning. Branch vortioxetin 2021-02 Yes [id number] 5mg Take 1 Univers e 0-20 tablet by ity of (TRINTELLIX 00:00: mouth in [place] ) 5 mg Tab 00 the Medical morning. Branch vortioxetin 2021-02 Yes [id number] 5mg Take 1 Univers e 0-20 tablet by ity of (TRINTELLIX 00:00: mouth in [place] ) 5 mg Tab 00 the Medical morning. Branch vortioxetin 2021-02 Yes [id number] 5mg Take 1 Univers e 0-20 tablet by ity of (TRINTELLIX 00:00: mouth in [place] ) 5 mg Tab 00 the Medical morning. Branch vortioxetin 2021-02 Yes [id number] 5mg Take 1 Univers e 0-20 tablet by ity of (TRINTELLIX 00:00: mouth in [place] 5 mg Tab 00 the Medical morning. Branch vortioxetin 2021-02- No [id number] 5mg Take 1 Univers e 0-20 11-21 tablet by ity of (TRINTELLIX 00:00: 00:00 mouth in [place] ) 5 mg Tab 00 :00 the Medical morning. Branch vortioxetin 2021-02- No [id number] 5mg Take 1 Univers e 0-20 11-21 tablet by ity of (TRINTELLIX 00:00: 00:00 mouth in [place] ) 5 mg Tab 00 :00 the Medical morning. Branch DULoxetine Yes [id number] 20mg Take 1 Univers 20 mg 9-20 capsule by ity of capsule 00:00: mouth in [place] 00 the Medical morning. Branch DULoxetine 2022-0 Yes [id number] 20mg Take 1 Univers 20 mg 9-20 capsule by ity of capsule 00:00: mouth in [place] 00 the Medical morning. Branch DULoxetine 2-0 Yes [id number] 20mg Take 1 [facility] 20 mg 9-20 capsule by ity of capsule 00:00: mouth in [place] 00 the Medical morning. Branch DULoxetine 2-0 Yes [id number] 20mg Take 1 [facility] 20 mg 9-20 capsule by ity of capsule 00:00: mouth in [place] 00 the Medical morning. Branch DULoxetine 2021-0 Yes [id number] 20mg Take 1 [facility] 20 mg 9-20 capsule by ity of capsule 00:00: mouth in [place] 00 the Medical morning. Branch DULoxetine 2021-0 2- No [id number] 20mg Take 1 [facility] 20 mg 9-20 10-20 capsule by ity of capsule 00:00: 00:00 mouth in [place] 00 :00 the Medical morning. Branch DULoxetine 2021-0 2- No [id number] 20mg Take 1 Univers 20 mg 9-20 10-20 capsule by ity of capsule 00:00: 00:00 mouth in [place] 00 :00 the Medical morning. Branch gabapentin 2021-0 Yes [id number] 300mg Take 1 Univers 300 mg 8-23 capsule by ity of capsule 00:00: mouth at [place] 00 bedtime. Medical Branch gabapentin 2-0 Yes [id number] 300mg Take 1 [facility] 300 mg 8-23 capsule by ity of capsule 00:00: mouth at [place] 00 bedtime. Medical Branch gabapentin 2022-0 Yes [id number] 300mg Take 1 [facility] 300 mg 8-23 capsule by ity of capsule 00:00: mouth at [place] 00 bedtime. Medical Branch gabapentin 2022-0 2022- No [id number] 300mg Take 1 [facility] 300 mg 8-23 09-20 capsule by ity of capsule 00:00: 00:00 mouth at [place] 00 :00 bedtime. Medical Branch gabapentin 2022-0 2022- No [id number] 300mg Take 1 [facility] 300 mg 8-23 09-20 capsule by ity of capsule 00:00: 00:00 mouth at [place] 00 :00 bedtime. Medical Branch mirtazapine 2022-0 2022- No 30mg Take 30 mg Univers 30 mg 8-09 20-23 by mouth ity of tablet 00:00: 00:00 in the [place] 00 :00 morning. Medical Branch mirtazapine 2-0 2022- No 30mg Take 30 mg Univers 30 mg 09-20 by mouth ity of tablet 00:00: 00:00 in the [place] 00 :00 morning. Medical Branch sertraline 2020-0 [...] 0.9% 6-09 (Same as: l 18:36: BD [place] Posiflush) Saline No Notes: Memoria Flush 0.9% 6-09 (Same as: l 18:36: BD [place] Posiflush) Saline No Notes: Memoria Flush 0.9% 6-09 (Same as: l 18:36: BD [place] 00 Posiflush) Saline No Notes: Memoria Flush 0.9% 6-09 (Same as: l 18:36: BD [place] 00 Posiflush) Saline No Notes: Memoria Flush 0.9% 6-09 (Same as: l 18:36: BD [place] 00 Posiflush) Saline No Notes: Memoria Flush 0.9% 6-09 (Same as: l 18:36: BD [place] 00 Posiflush) Saline No Notes: Memoria Flush 0.9% 6-09 (Same as: l 18:36: BD [place] 00 Posiflush) Saline No Notes: Memoria Flush [...] 0.9% 6-09 (Same as: l 18:36: BD [place] 00 Posiflush) Saline No Notes: Memoria Flush 0.9% 6-09 (Same as: l 18:36: BD [place] 00 Posiflush) Saline No Notes: Memoria Flush 0.9% 6-09 (Same as: l 18:36: BD [place] 00 Posiflush) Saline No Notes: Memoria Flush 0.9% 6-09 (Same as: l 18:36: BD [place] 00 Posiflush) Saline No Notes: Memoria Flush 0.9% 6-09 (Same as: l 18:36: BD [place] 00 Posiflush) Saline No Notes: Memoria Flush 0.9% 6-09 (Same as: l 18:36: BD [place] 00 Posiflush) Saline No Notes: Memoria Flush 0.9% 6-09 (Same as: l 18:36: BD [place] 00 Posiflush) Saline No Notes: Memoria Flush 0.9% 6-09 (Same as: l 18:36: BD [place] 00 Posiflush) Saline No Notes: Memoria Flush 0.9% 6-09 (Same as: l 18:36: BD [place] 00 Posiflush) Saline No Notes: Memoria Flush 0.9% 6-09 (Same as: l 18:36: BD [place] 00 Posiflush) Saline No Notes: Memoria Flush 0.9% 6-09 (Same as: l 18:36: BD [place] 00 Posiflush) Saline No Notes: Memoria Flush 0.9% 6-09 (Same as: l 18:36: BD [place] 00 Posiflush) Saline No Notes: Memoria Flush 0.9% 6-09 (Same as: l 18:36: BD [place] 00 Posiflush) Saline No Notes: Memoria Flush 0.9% 6-09 (Same as: l 18:36: BD [place] 00 Posiflush) Saline No Notes: Memoria Flush 0.9% 6-09 (Same as: l 18:36: BD [place] 00 Posiflush) Saline No Notes: Memoria Flush 0.9% 6-09 (Same as: l 18:36: BD [place] 00 Posiflush) Saline No Notes: Memoria Flush 0.9% 6-09 (Same as: l 18:36: BD [place] 00 Posiflush) Saline No Notes: Memoria Flush 0.9% 6-09 (Same as: l 18:36: BD [place] 00 Posiflush) Vital Signs Vital Name Observation Time Observation Value Comments Source Systolic blood 2022-07-16 14:11:00 145 mm[Hg] [facility] of pressure [place] [facility] Diastolic blood 2022-07-16 14:11:00 73 mm[Hg] Unive rsity of pressure [place] [facility] [place] Heart rate 2022-07-16 14:11:00 62 /min [facility] [place] [facility] [place] Body temperature 2022-07-16 14:11:00 36.33 Nita [facility] [place] [facility] Respiratory rate 2022-07-16 14:11:00 20 /min [facility] ersity of [facility] Oxygen saturation in 2022-07-16 14:11:00 100 /min University of Arterial blood by 36Kr Pulse oximetry Branch WEIGHT 2022-07-12 06:00:00 86 kg WEIGHT 2022-07-12 06:00:00 86 kg Systolic blood 2022-07-11 15:10:00 117 mm[Hg] [facility]ity of pressure [place] [facility] [place] Diastolic blood 2022-07-11 15:10:00 68 mm[Hg] Unive rsity of pressure [place] [facility] [place] Heart rate 2022-07-11 15:10:00 74 /min [facility] [place] [facility] [place] Body temperature 2022-07-11 15:10:00 36.94 Nita [facility] [place] [facility] Respiratory rate 2022-07-11 15:10:00 18 /min [facility] [place] [facility] [place] Body weight 2022-07-11 15:10:00 90.719 kg [facility] [place] [facility] BMI 2022-07-11 15:10:00 32.28 kg/m2 [facility] of [facility] Oxygen saturation in 2022-07-11 15:10:00 98 /min [facility] of Arterial blood by 36[facility] Pulse oximetry Branch Systolic blood 2022-07-11 11:20:00 133 mm[Hg] Univer sity of pressure [place] [facility] Diastolic blood 2022-07-11 11:20:00 69 mm[Hg] Unive rsity of pressure [place] [facility] [place] Heart rate 2022-07-11 11:20:00 78 /min [facility] [place] [facility] Respiratory rate 2022-07-11 11:20:00 18 /min [facility] [place] [facility] Oxygen saturation in 2022-07-11 11:20:00 99 /min [facility] of Arterial blood by [facility] Pulse oximetry Branch Body temperature 2022-07-11 09:24:00 36.83 Nita [facility] [place] [facility] Body weight 2022-07-11 09:24:00 90.719 kg [facility] [place] [facility] BMI 2022-07-11 09:24:00 32.28 kg/m2 [facility] [place] [facility] Systolic blood 2022-07-08 18:24:00 130 mm[Hg] Univer sity of pressure [place] [facility] Diastolic blood 2022-07-08 18:24:00 57 mm[Hg] Unive rsity of pressure [place] [facility] Heart rate 2022-07-08 18:24:00 87 /min [facility] [place] [facility] Body temperature 2022-07-08 18:24:00 36.72 Nita [facility] [place] [facility] Respiratory rate 2022-07-08 18:24:00 18 /min [facility] [place] [facility] Body weight 2022-07-08 18:24:00 90.719 kg [facility] [place] [facility] BMI 2022-07-08 18:24:00 32.28 kg/m2 [facility] [place] [facility] Oxygen saturation in 2022-07-08 18:24:00 97 /min [facility] Arterial blood by [facility] Pulse oximetry Branch Systolic blood 2022-07-05 14:00:00 155 mm[Hg] Univer sity of pressure [place] [facility] Diastolic blood 2022-07-05 14:00:00 80 mm[Hg] Unive rsity of pressure [place] [facility] Heart rate 2022-07-05 14:00:00 76 /min [facility] [place] [facility] Body temperature 2022-07-05 14:00:00 37.56 Nita [facility] [place] [facility] Respiratory rate 2022-07-05 14:00:00 16 /min [facility] [place] [facility] Oxygen saturation in 2022-07-05 14:00:00 98 /min [facility] of Arterial blood by [facility] Pulse oximetry Branch Body weight 2022-07-05 10:49:00 90.719 kg [facility] [place] [facility] BMI 2022-07-05 10:49:00 32.28 kg/m2 [facility] [place] [facility] HEIGHT 2022-06-21 11:16:00 167.6 cm WEIGHT 2022-06-21 11:16:00 87.181 kg HEIGHT 2022-06-21 11:16:00 167.6 cm WEIGHT 2022-06-21 11:16:00 87.181 kg Systolic blood 2022-06-16 16:05:00 112 mm[Hg] Univer sity of pressure [place] [facility] Branch Diastolic blood 2022-06-16 16:05:00 72 mm[Hg] Unive rsity of pressure [place] [facility] Heart rate 2022-06-16 16:05:00 90 /min [facility] [place] [facility] Body temperature 2022-06-16 16:05:00 36.72 Nita [facility] [place] [facility] Branch Respiratory rate 2022-06-16 16:05:00 16 /min [facility] of [place] [facility] Branch Body height 2022-06-16 16:05:00 167.6 cm [facility] [place] [facility] Body weight 2022-06-16 16:05:00 91.173 kg [facility] [place] [facility] BMI 2022-06-16 16:05:00 32.44 kg/m2 [facility] [place] [facility] Branch Oxygen saturation in 2022-06-16 16:05:00 100 /min [facility] of Arterial blood by [facility] Pulse oximetry Branch Systolic blood 2022-06-07 18:25:00 140 mm[Hg] Univer sity of pressure [place] [facility] Branch Diastolic blood 2022-06-07 18:25:00 74 mm[Hg] Unive rsity of pressure [place] [facility] Heart rate 2022-06-07 18:25:00 70 /min [facility] [place] [facility] Body temperature 2022-06-07 18:25:00 36.44 Nita [facility] of [place] [facility] Branch Respiratory rate 2022-06-07 18:25:00 20 /min Univ [facility]ity of [place] [facility] Branch Oxygen saturation in 2022-06-07 18:25:00 100 /min [facility] of Arterial blood by [facility] Pulse oximetry Branch Body weight 2022-05-27 08:00:00 86.456 kg [facility] [place] [facility] BMI 2022-05-27 08:00:00 30.76 kg/m2 [facility] [place] [facility] Body height 2022-05-27 02:20:00 167.6 cm [facility] [place] [facility] Systolic blood 2022-06-03 10:48:00 136 mm[Hg] Univer sity of pressure [place] [facility] Diastolic blood 2022-06-03 10:48:00 67 mm[Hg] Unive rsity of pressure [place] [facility] Heart rate 2022-06-03 10:48:00 80 /min [facility] [place] [facility] Body temperature 2022-06-03 10:48:00 36.28 Nita [facility] [place] [facility] Respiratory rate 2022-06-03 10:48:00 18 /min [facility] [place] [facility] Oxygen saturation in 2022-06-03 10:48:00 97 /min [facility] Arterial blood by [place] [facility] Pulse oximetry Branch Body weight 2022-05-27 08:00:00 86.456 kg [facility] [place] [facility] BMI 2022-05-27 08:00:00 30.76 kg/m2 [facility] [place] [facility] Body height 2022-05-27 02:20:00 167.6 cm [facility] [place] [facility] Systolic blood 2022-05-31 01:00:00 116 mm[Hg] Univer sity of pressure [place] [facility] Diastolic blood 2022-05-31 01:00:00 68 mm[Hg] Unive rsity of pressure [place] [facility] Heart rate 2022-05-31 01:00:00 79 /min [facility] [place] [facility] Body temperature 2022-05-31 01:00:00 37.78 Nita [facility] [place] [facility] Respiratory rate 2022-05-31 01:00:00 14 /min [facility] [place] [facility] Oxygen saturation in 2022-05-31 01:00:00 96 /min [facility] Arterial blood by [place] [facility] Pulse oximetry Branch Body weight 2022-05-27 08:00:00 86.456 kg [facility] [place] [facility] BMI 2022-05-27 08:00:00 30.76 kg/m2 [facility] [place] [facility] Body height 2022-05-27 02:20:00 167.6 cm [facility] [place] [facility] Systolic blood 2022-05-29 15:15:00 138 mm[Hg] Univer sity of pressure [place] [facility] Diastolic blood 2022-05-29 15:15:00 81 mm[Hg] Unive rsity of pressure [place] [facility] Heart rate 2022-05-29 15:15:00 62 /min [facility] [place] [facility] Body temperature 2022-05-29 15:15:00 36.39 Nita [facility] [place] [facility] Respiratory rate 2022-05-29 15:15:00 18 /min [facility] [place] [facility] Oxygen saturation in 2022-05-29 15:15:00 100 /min [facility] Arterial blood by [place] [facility] Pulse oximetry Branch Body weight 2022-05-27 08:00:00 86.456 kg [facility] [place] [facility] BMI 2022-05-27 08:00:00 30.76 kg/m2 [facility] [place] [facility] Body height 2022-05-27 02:20:00 167.6 cm [facility] [place] [facility] Systolic blood 2022-05-23 21:38:00 137 mm[Hg] Univer sity of pressure [place] [facility] Diastolic blood 2022-05-23 21:38:00 89 mm[Hg] Unive rsity of pressure [place] [facility] Heart rate 2022-05-23 21:38:00 100 /min [facility] [place] [facility] Body temperature 2022-05-23 21:38:00 36.67 Nita [facility] [place] [facility] Respiratory rate 2022-05-23 21:38:00 20 /min [facility] [place] [facility] Body weight 2022-05-23 21:38:00 81.647 kg [facility] [place] [facility] BMI 2022-05-23 21:38:00 29.05 kg/m2 [facility] [place] [facility] Oxygen saturation in 2022-05-23 21:38:00 100 /min [facility] Arterial blood by [place] [facility] Pulse oximetry Branch Systolic blood 2022-05-23 10:00:00 144 mm[Hg] Univer sity of pressure [place] [facility] Diastolic blood 2022-05-23 10:00:00 79 mm[Hg] Unive rsity of pressure [place] [facility] Heart rate 2022-05-23 10:00:00 77 /min [facility] [place] [facility] Respiratory rate 2022-05-23 10:00:00 14 /min [facility] [place] [facility] Oxygen saturation in 2022-05-23 10:00:00 96 /min [facility] of Arterial blood by [facility] Pulse oximetry Branch Body temperature 2022-05-23 08:49:00 36.72 Nita [facility] [place] [facility] Body height 2022-05-23 08:49:00 167.6 cm [facility] [place] [facility] Body weight 2022-05-23 08:49:00 81.647 kg [facility] [place] [facility] BMI 2022-05-23 08:49:00 29.05 kg/m2 [facility] [place] [facility] Systolic blood 2022-05-19 14:32:00 153 mm[Hg] Univer sity of pressure [place] [facility] Diastolic blood 2022-05-19 14:32:00 82 mm[Hg] Unive rsity of pressure [place] [facility] Heart rate 2022-05-19 14:31:00 86 /min [facility] [place] [facility] Body temperature 2022-05-19 14:31:00 36.11 Nita [facility] [place] [facility] Body height 2022-05-19 14:31:00 167.6 cm [facility] [place] [facility] Body weight 2022-05-19 14:31:00 87.544 kg [facility] [place] [facility] BMI 2022-05-19 14:31:00 31.15 kg/m2 [facility] [place] [facility] Oxygen saturation in 2022-05-19 14:31:00 97 /min [facility] of Arterial blood by [facility] Pulse oximetry Branch Systolic blood 2022-05-03 14:51:00 136 mm[Hg] Univer sity of pressure [place] [facility] Diastolic blood 2022-05-03 14:51:00 80 mm[Hg] Unive rsity of pressure [place] [facility] Heart rate 2022-05-03 14:51:00 68 /min [facility] [place] [facility] Body height 2022-05-03 14:51:00 167.6 cm [facility] [place] [facility] Body weight 2022-05-03 14:51:00 84.369 kg [facility] [place] [facility] BMI 2022-05-03 14:51:00 30.02 kg/m2 [facility] [place] [facility] Systolic blood 2022-04-13 15:41:00 128 mm[Hg] Univer sity of pressure [place] [facility] Diastolic blood 2022-04-13 15:41:00 88 mm[Hg] Unive rsity of pressure [place] [facility] Heart rate 2022-04-13 15:41:00 88 /min [facility] [place] [facility] Respiratory rate 2022-04-13 15:41:00 18 /min [facility] [place] [facility] Body height 2022-04-13 15:41:00 167.6 cm [facility] [place] [facility] Body weight 2022-04-13 15:41:00 86.047 kg [facility] [place] [facility] BMI 2022-04-13 15:41:00 30.62 kg/m2 [facility] [place] [facility] Oxygen saturation in 2022-04-13 15:41:00 96 /min [facility] of Arterial blood by [facility] Pulse oximetry Branch Systolic blood 2022-04-07 16:41:00 162 mm[Hg] Univer sity of pressure [place] [facility] Diastolic blood 2022-04-07 16:41:00 89 mm[Hg] [facility] Heart rate 2022-04-07 16:41:00 81 /min [facility] Body weight 2022-04-07 16:39:00 86.183 kg [facility] BMI 2022-04-07 16:39:00 30.67 kg/m2 [facility] Systolic blood 2022-02-02 15:24:00 133 mm[Hg] [facility] Diastolic blood 2022-02-02 15:24:00 82 mm[Hg] [facility] Heart rate 2022-02-02 15:24:00 82 /min [facility] Body height 2022-02-02 15:24:00 167.6 cm [facility] Body weight 2022-02-02 15:24:00 83.008 kg [facility] BMI 2022-02-02 15:24:00 29.54 kg/m2 [facility] Systolic blood 2022-01-03 15:07:00 129 mm[Hg] [facility] Diastolic blood 2022-01-03 15:07:00 82 mm[Hg] [facility] Heart rate 2022-01-03 15:07:00 76 /min [facility] Body temperature 2022-01-03 15:07:00 36.83 Nita [facility] Body height 2022-01-03 15:07:00 167.6 cm [facility] Body weight 2022-01-03 15:07:00 83.462 kg [facility] BMI 2022-01-03 15:07:00 29.70 kg/m2 [facility] Systolic blood 2021-12-08 15:22:00 144 mm[Hg] [facility] Diastolic blood 2021-12-08 15:22:00 84 mm[Hg] [facility] Heart rate 2021-12-08 15:18:00 70 /min [facility] Body height 2021-12-08 15:18:00 167.6 cm [facility] Body weight 2021-12-08 15:18:00 83.326 kg [facility] BMI 2021-12-08 15:18:00 29.65 kg/m2 [facility] Oxygen saturation in 2021-12-08 15:18:00 100 /min University Arterial blood by [facility] Pulse oximetry Branch Systolic blood 2021-12-02 16:05:00 130 mm[Hg] [facility] Diastolic blood 2021-12-02 16:05:00 78 mm[Hg] [facility] Heart rate 2021-12-02 16:05:00 61 /min [facility] Body temperature 2021-12-02 16:05:00 37.22 Nita [facility] Body height 2021-12-02 16:05:00 167.6 cm [facility] Body weight 2021-12-02 16:05:00 84.369 kg [facility] BMI 2021-12-02 16:05:00 30.02 kg/m2 [facility] Systolic blood 2021-11-02 14:34:00 133 mm[Hg] [facility] Diastolic blood 2021-11-02 14:34:00 79 mm[Hg] [facility] Heart rate 2021-11-02 14:34:00 80 /min [facility] Body height 2021-11-02 14:34:00 167.6 cm [facility] Body weight 2021-11-02 14:34:00 84.823 kg [facility] BMI 2021-11-02 14:34:00 30.18 kg/m2 [facility] Systolic blood 2021-10-05 19:18:00 152 mm[Hg] [facility] Diastolic blood 2021-10-05 19:18:00 87 mm[Hg] [facility] Heart rate 2021-10-05 19:18:00 83 /min [facility] Body temperature 2021-10-05 19:18:00 37.33 Nita Univ [facility] of [facility] Body height 2021-10-05 19:18:00 167.6 cm [facility] Body weight 2021-10-05 19:18:00 86.637 kg [facility] BMI 2021-10-05 19:18:00 30.83 kg/m2 [facility] Oxygen saturation in 2021-10-05 19:18:00 99 /min [facility] Arterial blood by [facility] Pulse oximetry Branch Heart rate 2022-06-23 15:28:08 91 /min [facility] Respiratory rate 2022-06-23 15:28:08 18 /min [facility] Oxygen saturation in 2022-06-23 15:28:08 100 /min [facility] Arterial blood by [facility] Pulse oximetry Body temperature 2022-06-23 15:28:04 36.89 Nita [facility] Systolic blood 2022-06-23 15:27:00 144 mm[Hg] [facility] Diastolic blood 2022-06-23 15:27:00 79 mm[Hg] KIM pringle [facility] Body height 2022-06-21 11:16:00 167.6 cm [facility] Body weight 2022-06-21 11:16:00 87.181 kg [facility] BMI 2022-06-21 11:16:00 31.02 kg/m2 [facility] Initial DRG Weight: 2020-02-15 05:04:52 [...] Temperature 2020-02-15 05:04:52 36.6\\S\\97.9 Weight 2020-02-15 05:04:52 60743\\S\\2627.91 Weight Measurement 2020-02-15 05:04:52 Built in Bedscale [...] Temperature 2020-02-10 08:28:02 36.6\\S\\97.9 Weight 2020-02-10 08:28:02 90390\\S\\2627.91 Weight Measurement 2020-02-10 08:28:02 Built in Bedscale [...] Temperature 2020-02-06 14:55:36 36.6\\S\\97.9 Weight 2020-02-06 14:55:36 47884\\S\\2627.91 Weight Measurement 2020-02-06 14:55:36 Built in Bedscale [...] Temperature 2020-02-06 12:25:52 36.7\\S\\98.1 Weight 2020-02-06 12:25:52 06884\\S\\2627.91 Weight Measurement 2020-02-06 12:25:52 Built in [place] Method Initial DRG Weight: 2020-02-04 14:40:56 0.8372 [...] Temperature 2020-02-04 14:40:56 36.3\\S\\97.3 Weight 2020-02-04 14:40:56 07827\\S\\2627.91 Weight Measurement 2020-02-04 14:40:56 Built in Bedscale [...] Temperature 2020-02-04 12:53:01 36.3\\S\\97.3 Weight 2020-02-04 12:53:01 09427\\S\\2627.91 Weight Measurement 2020-02-04 12:53:01 Built in Bedscale [...] Temperature 2020-02-04 10:07:56 36.7\\S\\98.1 Weight 2020-02-04 10:07:56 63026\\S\\2627.91 Weight Measurement 2020-02-04 10:07:56 Built in Bedscale [...] Temperature 2020-02-04 06:31:28 36.7\\S\\98.1 Weight 2020-02-04 06:31:28 72560\\S\\2627.91 Weight Measurement 2020-02-04 06:31:28 Built in Bedscale [...] Temperature 2020-02-03 15:40:21 37.1\\S\\98.8 Weight 2020-02-03 15:40:21 88133\\S\\2627.91 Weight Measurement 2020-02-03 15:40:21 Built in Bedscale [...] Temperature 2020-02-03 13:59:33 37.1\\S\\98.8 Weight 2020-02-03 13:59:33 62873\\S\\2627.91 Weight Measurement 2020-02-03 13:59:33 Built in Bedscale [...] Temperature 2020-02-03 13:57:29 37.1\\S\\98.8 Weight 2020-02-03 13:57:29 11022\\S\\2627.91 Weight Measurement 2020-02-03 13:57:29 Built in Bedscale Method WEIGHT 2020-02-03 05:44:00 74.5 kg HEIGHT 2020-02-03 05:00:00 167.64 cm Respitory Rate 2014-07-22 20:45:00 [facility] Heart Rate 2014-07-22 20:45:00 [facility] Systolic (mm Hg) 2014-07-22 20:45:00 Jack [facility] Diastolic (mm Hg) 2014-07-22 20:45:00 [facility] [place] Height 2014-07-22 17:53:00 167.64 cm [facility] Weight 2014-07-22 17:53:00 [facility] BMI Calculated 2014-07-22 17:53:00 [facility] Respitory Rate 2014-07-22 17:53:00 [facility] Temperature Oral (F) 2014-07-22 17:53:00 97.9 F [facility] Heart Rate 2014-07-22 17:53:00 [facility] Systolic (mm Hg) 2014-07-22 17:53:00 Jack rial [place] Diastolic (mm Hg) 2014-07-22 17:53:00 Mem [facility] Procedures Procedure Date / Time Performing Clinician Source Performed COMP. METABOLIC PANEL 2022-07-11 10:41:00 Ángel Murray [facility] ([id number] CBC WITH DIFF 2022-07-11 10:41:00 Ángel Murray [facility] POCT GLUCOSE (AUTOMATED) 2022-07-11 09:26:00 Doctor Sergo, [facility] CONSENT/REFUSAL FOR 2022-07-11 04:57:15 Doctor Sergo [facility] DIAGNOSIS AND TREATMENT [facility]3] CONSENT/REFUSAL FOR 2022-07-08 18:20:06 Doctor Sergo [facility] DIAGNOSIS AND TREATMENT [facility]3] URINALYSIS 2022-07-05 13:22:00 Hilda Miller [facility] XR TIBIA FIBULA 2 VW 2022-07-05 13:16:57 Hilda Miller [facility] COMP. METABOLIC PANEL 2022-07-05 12:59:00 Hilda Miller [facility] ([id number]) Medical Branch US LOWER EXTREMITY VEIN 2022-07-05 12:47:00 Hilda Miller [facility] WITH COMPRESSION RIGHT Medical [facility] (ONLY FOR RULE OUT DVT) TROPONIN I 2022-07-05 11:49:00 Hilda Miller [facility] CBC WITH DIFF 2022-07-05 11:49:00 Hilda Miller [facility] N-TERMINAL PRO-BNP 2022-07-05 11:49:00 Hilda Miller [facility] US RENAL COMPLETE 2022-06-23 16:47:00 Kendra [facility] CBC W/PLT COUNT & AUTO 2022-06-23 05:27[facility] DIFFERENTIAL [place] CBC W/PLT COUNT & AUTO 2022-06-23 05:27:00 Kendra [facility] DIFFERENTIAL [place] US ABDOMEN LIMITED 2022-06-22 16:17:00 Fabienne [facility] BASIC METABOLIC PANEL 2022-06-22 03:48:00 Fabienne [facility] MAGNESIUM 2022-06-22 03:48:00 Fabienne [facility] HEPATIC FUNCTION PANEL 2022-06-22 03:48:00 Fabienne [facility] CBC W/PLT COUNT & AUTO 2022-06-22 03:48:00 Fabienne [facility] PROTEIN ELECTROPHORESIS, 2022-06-22 03:48:00 Fabienne [facility] IRON, TIBC, % SAT. 2022-06-22 03:48:00 Fabienne [facility] (WITHOUT FERRITIN) [place] VITAMIN B12 2022-06-22 03:48:00 Fabienne [facility] FERRITIN 2022-06-22 03:48:00 Fabienne [facility] HEPARIN ANTIBODY 2022-06-22 03:48:00 [facility] LACT[facility] DEHYDROGENASE 2022-06-22 03:48:00 [facility] HAPTOGLOBIN 2022-06-22 03:48:00 [facility] [place] RETICULOCYTE COUNT 2022-06-22 03:48:00 [facility] [place] SERUM IMMUNOTYPING 2022-06-22 03:48:00 Fabienne [facility] SEROTONIN RELEASE ASSAY 2022-06-22 03:48:00 Fabienne [facility] CBC W/PLT COUNT & AUTO 2022-06-22 03:48:00 Fabienne [facility] URINE PROTEIN 2022-06-21 16:38:00 Fabienne [facility] ELECTROPHORESIS, RANDOM Center SARS-COV2/RT-PCR ([facility] & 2022-06-21 11:14:00 Fabienne [facility] REF LABS) Center COMPREHENSIVE METABOLIC 2022-06-21 11:12:00 Fabienne [facility] PANEL Center PROTHROMBIN TIME/INR 2022-06-21 11:12:00 Fabienne [facility] CBC W/PLT COUNT & AUTO 2022-06-21 11:12:00 Fabienne [facility] CBC W/PLT COUNT & AUTO 2022-06-21 11:12:00 Fabienne [facility] INSURANCE CORRESPONDENCE 2022-06-21 05:01:00 Doctor Unassigned, [facility] PHOSPHORUS 2022-06-07 09:16:00 Haley [facility] MAGNESIUM 2022-06-07 09:16:00 [facility] BASIC METABOLIC PANEL 2022-06-07 09:16:00 Jorge L De Leon [facility] (NA, K, CL, CO2, GLUCOSE, Faustino Medica l Branch BUN, CREATININE, CA) PHOSPHORUS 2022-06-05 11:13:00 Prajapati [facility] [place] MAGNESIUM 2022-06-05 11:13:00 Prajapati [facility] [place] BASIC METABOLIC PANEL 2022-06-05 11:13:00 Prajapati [facility] (NA, K, CL, CO2, GLUCOSE, Rod, Juanpablo Medica l Branch BUN, CREATININE, CA) [place] CBC WITH DIFF 2022-06-05 11:13:00 Prajapati [facility] [place] PHOSPHORUS 2022-06-05 11:13:00 Prajapati [facility] [place] MAGNESIUM 2022-06-05 11:13:00 Prajapati [facility] [place] BASIC METABOLIC PANEL 2022-06-05 11:13:00 Prajapati [facility] (NA, K, CL, CO2, GLUCOSE, Rod, Juanpablo Medica [facility] Branch BUN, CREATININE, CA) [place] CBC WITH DIFF 2022-06-05 11:13:00 [facility] THORAX W CONTRAST 2022-06-05 01:36:13 Shimon Nathan [facility] CT THORAX W CONTRAST 2022-06-05 01:36:13 Shimon Nathan [facility] ACTIVATED PARTIAL 2022-06-04 18:00:00 Armando Pandey [facility] ACTIVATED PARTIAL 2022-06-04 18:00:00 Armando Pandey [facility] ACTIVATED PARTIAL 2022-06-04 14:21:00 Ryley Polo [facility] ACTIVATED PARTIAL 2022-06-04 14:21:00 [facility] XR KUB 2022-06-04 09:32:00 Dannie [facility] XR KUB 2022-06-04 09:32:00 Dannie, [facility] XR KUB 2022-06-04 06:45:00 Dannie, [facility] XR KUB 2022-06-04 06:45:00 Dannie [facility] HIT - AB 2022-06-04 06:14:00 Dannie [facility] EXTRA SST HOLD FOR ARUP 2022-06-04 06:14:00 Dannie [facility] HIT - AB 2022-06-04 06:14:00 Dannie [facility] EXTRA SST HOLD FOR ARUP 2022-06-04 06:14:00 Dannie [facility] XR CHEST 1 VW 2022-06-04 05:23:00 Dannie [facility] XR CHEST 1 VW 2022-06-04 05:23:00 Dannie [facility] TROPONIN I 2022-06-04 04:51:00 Dannie [facility] HEPATIC FUNCTION PANEL 2022-06-04 04:51:00 Armando Pandey [facility] ([id number]) (ALB,T.PRO,BILI Medical Branch T,BU/BC,ALT,AST,ALK PHOS) BASIC METABOLIC PANEL 2022-06-04 04:51:00 Armando Pandey [facility] (NA, K, CL, CO2, GLUCOSE, Medica l Branch BUN, CREATININE, CA) CBC WITH DIFF 2022-06-04 04:51:00 Dannie [facility] ACTIVATED PARTIAL 2022-06-04 04:51[facility]00 [facility] 20[facility]-04 04:51:00 Dannie [facility] HEPATIC FUNCTION PANEL 2022-06-04 04:51:00 Dannie [facility] ([id number]) (ALB,T.PRO,BILI Medical Branch T,BU/BC,ALT,AST,ALK PHOS) BASIC METABOLIC PANEL 2022-06-04 04:51:00 Armando Pandey [facility] (NA, K, CL, CO2, GLUCOSE, Medica l Branch BUN, CREATININE, CA) CBC WITH DIFF 2022-06-04 04:51:00 Armando Pandey [facility] ACTIVATED PARTIAL 2022-06-04 04:51:00 Joseph Doran [facility] HB ECG ROUTINE & RHYTHM 2022-06-04 04:43:15 Armando Pandey [facility] HB ECG ROUTINE & RHYTHM 2022-06-04 04:43:15 Armando Pandey [facility] ACTIVATED PARTIAL 2022-06-03 20:52:00 [facility] ACTIVATED PARTIAL 2022-06-03 20:52:00 [facility] FL TIME OR 2022-06-03 17:21:00 [facility] (NON-REPORTABLE) [facility] FL TIME OR 2022-06-03 17:21:00 [facility] (NON-REPORTABLE) [facility] ABG+COOX+NA+K+GLU+CA2+ 2022-06-03 16:52:00 [facility] ABG+COOX+NA+K+GLU+CA2+ 2022-06-03 16:52:00 [facility] SURGICAL PATHOLOGY EXAM 2022-06-03 15:42:00 Lawrence Peterson [facility] ABG+COOX+NA+K+GLU+CA2+ 2022-06-03 15:36:00 [facility] ABG+COOX+NA+K+GLU+CA2+ 2022-06-03 15:36:00 [facility] HB ABO GROUPING 2022-06-03 13:05:00 Vishnu Zapien [facility] HB ABO GROUPING 2022-06-03 13:05:00 Vishnu Zapien [facility] INFERIOR VENA CAVA FILTER 2022-06-03 12:00:00 Lawrence Peterson [facility] VENOUS THROMBECTOMY 2022-06-03 12:00:00 Lawrence Peterson [facility] ANGIOPLASTY 2022-06-03 12:00:00 Lawrence Peterson [facility] VASCULAR STENTING 2022-06-03 12:00:00 Lawrence Peterson [facility] INFERIOR VENA CAVA FILTER 2022-06-03 12:00:00 Lawrence Peterson [facility] VENOUS THROMBECTOMY 2022-06-03 12:00:00 Lawrence Peterson [facility] ANGIOPLASTY 2022-06-03 12:00:00 Lawrence Peterson [facility] VASCULAR STENTING 2022-06-03 12:00:00 Lawrence Peterson [facility] PHOSPHORUS 2022-06-03 10:34:00 Prajapati [facility] [place] MAGNESIUM 2022-06-03 10:34:00 Prajapati [facility] [place] BASIC METABOLIC PANEL 2022-06-03 10:34:00 Prajapati de [facility] (NA, K, CL, CO2, GLUCOSE, Rod, [place] [facility] BUN, CREATININE, CA) [place] CBC WITH DIFF 2022-06-03 10:34:00 Prajapati [facility] [place] ACTIVATED PARTIAL 2022-06-03 10:34:00 Andreea [facility] PHOSPHORUS 2022-06-03 10:34:00 Prajapati [facility] [place] MAGNESIUM 2022-06-03 10:34:00 Prajapati [facility] [place] BASIC METABOLIC PANEL 2022-06-03 10:34:00 Prajapati de [facility] (NA, K, CL, CO2, GLUCOSE, Rod, [facility] [facility] BUN, CREATININE, CA) [place] CBC WITH DIFF 2022-06-03 10:34:00 [facility] [place] ACTIVATED PARTIAL 2022-06-03 10:34:00 Andreea [facility] ACTIVATED PARTIAL 2022-06-02 22:26[facility]22-06-02 22:26:00 [facility] ACTIVATED PARTIAL 2022-06-02 15:46:00 Andreea [facility] ACTIVATED PARTIAL 2022-06-02 15:46:00 Andreea [facility] PHOSPHORUS 2022-06-02 10:27:00 [facility] [place] MAGNESIUM 2022-06-02 10:27:00 [facility] [place] BASIC METABOLIC PANEL 2022-06-02 10:27:00 [facility] (NA, K, CL, CO2, GLUCOSE, Rod, [facility] [facility] BUN, CREATININE, CA) [place] CBC WITH DIFF 2022-06-02 10:27:00 [facility] [place] PHOSPHORUS 2022-06-02 10:27:00 Prajapati [facility] [place] MAGNESIUM 2022-06-02 10:27:00 [facility] [place] BASIC METABOLIC PANEL 2022-06-02 10:27:00 Prajapati [facility] (NA, K, CL, CO2, GLUCOSE, Rod, [place] [facility] BUN, CREATININE, CA) [place] CBC WITH DIFF 2022-06-02 10:27:00 [facility] [place] PHOSPHORUS 2022-06-01 10:05:00 [facility] [place] MAGNESIUM 2022-06-01 10:05:00 [facility] [place] BASIC METABOLIC PANEL 2022-06-01 10:05:00 [facility] (NA, K, CL, CO2, GLUCOSE, Rod, [facility] BUN, CREATININE, CA) [place] CBC WITH DIFF 2022-06-01 10:05:00 [facility] PHOSPHORUS 2022-06-01 10:05:00 [facility] [place] MAGNESIUM 2022-06-01 10:05:00 [facility] [place] BASIC METABOLIC PANEL 2022-06-01 10:05:00 [facility] (NA, K, CL, CO2, GLUCOSE, Rod, [facility] [facility] BUN, CREATININE, CA) [place] CBC WITH DIFF 2022-06-01 10:05:00 [facility] PHOSPHORUS 2022-05-31 11:01:00 [facility] [place] MAGNESIUM 2022-05-31 11:01:00 [facility] [place] BASIC METABOLIC PANEL 2022-05-31 11:01:00 [facility] (NA, K, CL, CO2, GLUCOSE, Rod, [place] [facility] BUN, CREATININE, CA) Jose Antonio CBC WITH DIFF 2022-05-31 11:01:00 [facility] [place] PROTHROMBIN TIME / INR 2022-05-31 11:01:00 Juanpablo Salmon [facility] ACTIVATED PARTIAL 2022-05-31 11:01:00 Juanpablo Salmon [facility] FIBRINOGEN 2022-05-31 11:01:00 Ryley Polo [facility] PHOSPHORUS 2022-05-31 11:01:00 [facility] [place] MAGNESIUM 2022-05-31 11:01:00 [facility] [place] BASIC METABOLIC PANEL 2022-05-31 11:01:00 Prajapati [facility] (NA, K, CL, CO2, GLUCOSE, Rod, [place] [facility] BUN, CREATININE, CA) Jose [place] CBC WITH DIFF 2022-05-31 11:01:00 [facility] [place] PROTHROMBIN TIME / INR 2022-05-31 11:01:00 Maurice Gutierrez [facility] ACTIVATED PARTIAL 2022-05-31 11:01:00 Juanpablo Salmon [facility] FIBRINOGEN 2022-05-31 11:01:00 Christ [facility] PHOSPHORUS 2022-05-31 11:01:00 [facility] [place] MAGNESIUM 2022-05-31 11:01:00 [facility] [place] BASIC METABOLIC PANEL 2022-05-31 11:01:00 Praj[facility]atiFormer[facility] (NA, K, CL, CO2, GLUCOSE, Rod, [facility] BUN, CREATININE, CA) [place] CBC WITH DIFF 2022-05-31 11:01:00 [facility] PROTHROMBIN TIME / INR 2022-05-31 11:01:00 Maurice Gutierrez [facility] ACTIVATED PARTIAL 2022-05-31 11:01:00 [facility]ablo [facility] FIBRINOGEN 2022-05-31 11:01:00 Christ [facility] FL TIME OR 2022-05-31 04:56:00 [facility] OR 2022-05-31 04:56:00 [facility] FL TIME OR 2022-05-31 04:56:00 [facility] FIBRINOGEN 2022-05-31 01:26:00 Christ [facility] FIBRINOGEN 2022-05-31 01:26:00 Christ [facility] FIBRINOGEN 2022-05-31 01:26:00 Christ [facility] VENOGRAM 2022-05-31 01:17:00 Cris [facility] VENOGRAM 2022-05-31 01:17:00 Cris [facility] FIBRINOGEN 2022-05-30 21:47:00 Christ [facility] FIBRINOGEN 2022-05-30 21:47:00 Christ [facility] FIBRINOGEN 2022-05-30 21:47:00 Christ [facility] FIBRINOGEN 2022-05-30 18:14:00 Tssheila [facility] FIBRINOGEN 2022-05-30 18:14:00 Christ [facility] FIBRINOGEN 2022-05-30 18:14:00 Christ [facility] FIBRINOGEN 2022-05-30 18:14:00 Christ [facility] FIBRINOGEN 2022-05-30 15:21:00 Tssheila [facility] FIBRINOGEN 2022-05-30 15:21:00 Tssheila [facility] FIBRINOGEN 2022-05-30 15:21:00 Christ [facility] FIBRINOGEN 2022-05-30 15:21:00 Christ [facility] FIBRINOGEN 2022-05-30 13:12:00 Christ [facility] FIBRINOGEN 2022-05-30 13:12:00 Christ [facility] FIBRINOGEN 2022-05-30 13:12:00 Christ [facility] FIBRINOGEN 2022-05-30 13:12:00 Christ [facility] FIBRINOGEN 2022-05-30 11:13:00 Christ [facility] FIBRINOGEN 2022-05-30 11:13:00 Christ [facility] FIBRINOGEN 2022-05-30 11:13:00 Christ [facility] FIBRINOGEN 2022-05-30 11:13:00 Christ [facility] PHOSPHORUS 2022-05-30 09:27:00 Christ [facility] MAGNESIUM 2022-05-30 09:27:00 Christ [facility] BASIC METABOLIC PANEL 2022-05-30 09:27:00 Christ [facility] (NA, K, CL, CO2, GLUCOSE, Medica l Branch BUN, CREATININE, CA) CBC WITH DIFF 2022-05-30 09:27:00 Christ [facility] ACTIVATED PARTIAL 2022-05-30 09:27:00 Ryley Polo [facility] THRLAS [facility] FIBRINOGEN 2022-05-30 09:27:00 [facility] PHOSPHORUS 2022-05-30 09:27:00 [facility] MAGNESIUM 2022-05-30 09:27:00 [facility] BASIC METABOLIC PANEL 2022-05-30 09:27:00 [facility] (NA, K, CL, CO2, GLUCOSE, Medica l Branch BUN, CREATININE, CA) CBC WITH DIFF 2022-05-30 09:27:00 [facility] ACTIVATED PARTIAL 2022-05-30 09:27:00 [facility]-30 09:27:00 [facility] PHOSPHORUS 2022-05-30 09:27:00 [facility] MAGNESIUM 2022-05-30 09:27:00 [facility] BASIC METABOLIC PANEL 2022-05-30 09:27:00 [facility] (NA, K, CL, CO2, GLUCOSE, Medica l Branch BUN, CREATININE, CA) CBC WITH DIFF 2022-05-30 09:27:00 [facility] ACTIVATED PARTIAL 2022-05-30 09:27:00 [facility] FIBRINOGEN 2022-05-30 09:27:00 [facility] PHOSPHORUS 2022-05-30 09:27:00 [facility] MAGNESIUM 2022-05-30 09:27:00 [facility] BASIC METABOLIC PANEL 2022-05-30 09:27:00 [facility] ([facility], K, CL, CO2, GLUCOSE, Medica l Branch BUN, CREATININE, CA) CBC WITH DIFF 2022-05-30 09:27:00 [facility] ACTIVATED PARTIAL 2022-05-30 09:27:00 [facility] FIBRINOGEN 2022-05-30 09:27:00 [facility] FIBRINOGEN 2022-05-30 06:58:00 [facility] FIBRINOGEN 2022-05-30 06:58:00 [facility] FIBRINOGEN 2022-05-30 06:58:00 [facility] FIBRINOGEN 2022-05-30 06:58:00 [facility] ACTIVATED PARTIAL 2022-05-30 06:13:00 [facility] ACTIVATED PARTIAL 2022-05-30 06:13:00 [facility] ACTIVATED PARTIAL 2022-05-30 06:13:00 [facility] ACTIVATED PARTIAL 2022-05-30 06:13:00 [facility] FIBRINOGEN 2022-05-30 04:43:00 Cris [facility] FIBRINOGEN 2022-05-30 04:43:00 Cris [facility] FIBRINOGEN 2022-05-30 04:43:00 Cris [facility] FIBRINOGEN 2022-05-30 04:43:00 Cris [facility] FIBRINOGEN 2022-05-29 23:24:00 [facility] FIBRINOGEN 2022-05-29 23:24:00 [facility] FIBRINOGEN 2022-05-29 23:24:00 [facility] FIBRINOGEN 2022-05-29 23:24:00 [facility] FIBRINOGEN 2022-05-29 21:10:00 Cris [facility] FIBRINOGEN 2022-05-29 21:10:00 Cris [facility] FIBRINOGEN 2022-05-29 21:10:00 Cris [facility] FIBRINOGEN 2022-05-29 21:10:00 Cris [facility] BASIC METABOLIC PANEL 2022-05-29 14:55:00 Armando Pandeyer sity [facility] (NA, K, CL, CO2, GLUCOSE, Medica l Branch BUN, CREATININE, CA) CBC WITH DIFF 2022-05-29 14:55:00 Armando Pandey [facility] FIBRINOGEN 2022-05-29 14:55:00 Cris [facility] BASIC METABOLIC PANEL 2022-05-29 14:55:00 Armando Pandey [facility] [place] (NA, K, CL, CO2, GLUCOSE, Medica l Branch BUN, CREATININE, CA) CBC WITH DIFF 2022-05-29 14:55:00 [facility] 2022-05-29 14:55:00 Cris [facility] BASIC METABOLIC PANEL 2022-05-29 14:55:00 Armando Pandey [facility] sity [facility] (NA, K, CL, CO2, GLUCOSE, Medica l Branch BUN, CREATININE, CA) CBC WITH DIFF 2022-05-29 14:55:00 Armando Pandey [facility] FIBRINOGEN 2022-05-29 14:55:00 Cris [facility] BASIC METABOLIC PANEL 2022-05-29 14:55:00 Armando Pandey [facility] sity [facility] (NA, K, CL, CO2, GLUCOSE, Medica l Branch BUN, CREATININE, CA) CBC WITH DIFF 2022-05-29 14:55:00 Armando Pandey [facility] FIBRINOGEN 2022-05-29 14:55:00 Allan Lynch [facility] FL TIME OR 2022-05-29 14:03:00 Haley [facility] (NON-REPORTABLE) [facility] FL TIME OR 2022-05-29 14:03:00 Haley [facility] (NON-REPORTABLE) [facility] FL TIME OR 2022-05-29 14:03:00 Haley [facility] (NON-REPORTABLE) [facility] FL TIME OR 2022-05-29 14:03:00 Haley [facility] (NON-REPORTABLE) [facility] VENOUS THROMBOLYSIS 2022-05-29 12:05:00 [facility] 2022-05-29 12:05:00 Cris Allan [facility] MAGNESIUM 2022-05-29 11:11:00 [facility] 2022-05-29 11:11:00 [facility] (NA, K, CL, CO2, GLUCOSE, Medica l Branch BUN, CREATININE, CA) CBC WITHOUT DIFF 2022-05-29 11:11:00 Reyna [facility] ACTIVATED PARTIAL 2022-05-29 11:11:00 Reyna [facility] MAGNESIUM 2022-05-29 11:11:00 Reyna [facility] BASIC METABOLIC PANEL 2022-05-29 11:11:00 [facility] (NA, K, CL, CO2, GLUCOSE, Medica l Branch BUN, CREATININE, CA) CBC WITHOUT DIFF 2022-05-29 11:11:00 [facility] 2022-05-29 11:11:00 Reyna [facility] MAGNESIUM 2022-05-29 11:11:00 Reyna [facility] BASIC METABOLIC PANEL 2022-05-29 11:11:00 Amber Orellana [facility] (NA, K, CL, CO2, GLUCOSE, Medica l Branch BUN, CREATININE, CA) CBC WITHOUT DIFF 2022-05-29 11:11:00 Reyna [facility] ACTIVATED PARTIAL 2022-05-29 11:11:00 Reyna [facility] MAGNESIUM 2022-05-29 11:11:00 Reyna [facility] BASIC METABOLIC PANEL 2022-05-29 11:11:00 Amber Orellana [facility] (NA, K, CL, CO2, GLUCOSE, Medica l Branch BUN, CREATININE, CA) CBC WITHOUT DIFF 2022-05-29 11:11:00 [facility] 2022-05-29 11:11:00 Amber Orellana [facility] ABORH CONFIRMATION (LAB 2022-05-28 23:34:00 Lance Neal [facility] ONLY) Medical Branch ABORH CONFIRMATION (LAB 2022-05-28 23:34:00 Val Arnot [facility] ONLY) Medical Branch ABORH CONFIRMATION (LAB 2022-05-28 23:34:00 Val Arnot [facility] ONLY) Medical Branch ABORH CONFIRMATION (LAB 2022-05-28 23:34:00 Val Arnot [facility] ONLY) [facility] Branch HB ABO GROUPING 2022-05-28 23:00:00 Haley [facility] HB ABO GROUPING 2022-05-28 23:00:00 [facility] HB ABO GROUPING 2022-05-28 23:00:00 Alejandrojaime [facility] HB ABO GROUPING 2022-05-28 23:00:00 [facility] ACTIVATED PARTIAL 2022-05-28 22:59:00 [facility] 2022-05-28 22:59:00 [facility] 2022-05-28 22:59:00 [facility] 2022-05-28 22:59:00 [facility] 2022-05-28 17:23:00 [facility] ACTIV[facility] PARTIAL 2022-05-28 17:23:00 [facility] PROT[facility] / INR 2022-05-28 17:23:00 [facility] ACTIVATED PARTIAL 2022-05-28 17:23:00 [facility] PROTHROMBIN TIME / INR 2022-05-28 17:23:00 [facility] ACTIVATED PARTIAL 2022-05-28 17:23:00 Reyna [facility] PROTHROMBIN TIME / INR 2022-05-28 17:23:00 [facility] ACTIVATED PARTIAL 2022-05-28 17:23:00 Reyna [facility] BASIC METABOLIC PANEL 2022-05-28 09:09:00 [facility] (NA, K, CL, CO2, GLUCOSE, Medica l Branch BUN, CREATININE, CA) CBC WITH DIFF 2022-05-28 09:09:00 [facility] LEIDEN 2022-05-28 09:09:00 Winifred [facility] FACTOR 2 [id number] MUTATION 2022-05-28 09:09:00 Liseth Vitale [facility] F5 LEIDEN AND F2 [id number] 2022-05-28 09:09:[address] [facility] BASIC METABOLIC PANEL 2022-05-28 09:09:00 [facility] (NA, K, CL, CO2, GLUCOSE, Medica l Branch BUN, CREATININE, CA) CBC WITH DIFF 2022-05-28 09:09:00 Romario Friedman [facility] FACTOR 5 LEIDEN 2022-05-28 09:09:00 Winifred [facility] FACTOR 2 [id number] MUTATION 2022-05-28 09:09:00 Liesth Vitale [facility] F5 LEIDEN AND F2 [id number] 2022-05-28 09:09:[address] [facility] BASIC METABOLIC PANEL 2022-05-28 09:09:00 [facility] (NA, K, CL, CO2, GLUCOSE, Medica l Branch BUN, CREATININE, CA) CBC WITH DIFF 2022-05-28 09:09:00 Romario Friedman [facility] FACTOR 5 LEIDEN 2022-05-28 09:09:00 Winifred [facility] FACTOR 2 [id number] MUTATION 2022-05-28 09:09:00 Liseth Vitale Un [facility] F5 LEIDEN AND F2 [id number] 2022-05-28 09:09:[address] [facility] BASIC METABOLIC PANEL 2022-05-28 09:09:00 Romario Friedman [facility] (NA, K, CL, CO2, GLUCOSE, Medica l Branch BUN, CREATININE, CA) CBC WITH DIFF 2022-05-28 09:09:00 Romario Friedman [facility] FACTOR 5 LEIDEN 2022-05-28 09:09:00 Winifred [facility] FACTOR 2 [id number] MUTATION 2022-05-28 09:09:00 Liseth Vitale Un [facility] F5 LEIDEN AND F2 [id number] 2022-05-28 09:09:[address] [facility] TRANSTHORACIC ECHO (TTE) 2022-05-27 15:47:00 Romario Friedman nivsamreen of [facility] W/ CONTRAST Medical [facility] TRANSTHORACIC ECHO (TTE) 2022-05-27 15:47:00 [facility] TRANSTHORACIC ECHO (TTE) 2022-05-27 15:47:00 Romario Friedman niversity of [facility] W/ CONTRAST Medical [facility] TRANSTHORACIC ECHO (TTE) 2022-05-27 15:47:00 Romario [facility] W[facility] CONTRAST Medical [facility] CT ABDOMEN PELVIS W 2022-05-27 11:28:06 Madelin [facility] CONTRAST Medical [place] CT ABDOMEN PELVIS W 2022-05-27 11:28:06 Madelin [facility] CONTRAST Medical [place] CT ABDOMEN PELVIS W 2022-05-27 11:28:06 Madelin [facility] CONTRAST Medical Branch CT ABDOMEN PELVIS W 2022-05-27 11:28:06 Madelin [facility] CONTRAST Medical Branch BASIC METABOLIC PANEL 2022-05-27 09:45:00 [facility] (NA, K, CL, CO2, GLUCOSE, Medica l Branch BUN, CREATININE, CA) CBC WITH DIFF 2022-05-27 09:45:00 [facility] GLYCOSYLATED HEMOGLOBIN 2022-05-27 09:45:[address] [facility] Medical Branch BASIC METABOLIC PANEL 2022-05-27 09:45:00 [facility] (NA, K, CL, CO2, GLUCOSE, Medica l Branch BUN, CREATININE, CA) CBC WITH DIFF 2022-05-27 09:45:00 [facility] GLYCOSYLATED HEMOGLOBIN 2022-05-27 09:45:[address] [facility] Medical Branch BASIC METABOLIC PANEL 2022-05-27 09:45:00 [facility] (NA, K, CL, CO2, GLUCOSE, Medica l Branch BUN, CREATININE, CA) CBC WITH DIFF 2022-05-27 09:45:00 [facility] GLYCOSYLATED HEMOGLOBIN 2022-05-27 09:45:00 Winifred [facility] (A1C) Medical Branch BASIC METABOLIC PANEL 2022-05-27 09:45:00 [facility] (NA, K, CL, CO2, GLUCOSE, Medica l Branch BUN, CREATININE, CA) CBC WITH DIFF 2022-05-27 09:45:00 [facility] GLYCOSYLATED HEMOGLOBIN 2022-05-27 09:45:00 Winifred [facility] (A1C) Medical Branch DUPLEX VENOUS LEGS 2022-05-27 01:08:52 Meche Zapata [facility] BILATERAL - BY VASCULAR Medical Branch LAB DUPLEX VENOUS LEGS 2022-05-27 01:08:52 Meche Zapata [facility] BILATERAL - BY VASCULAR [facility] LAB DUPLEX VENOUS LEGS 2022-05-27 01:08:52 Meche Zapata [facility] BILATERAL - BY VASCULAR [facility] LAB DUPLEX VENOUS LEGS 2022-05-27 01:08:52 Meche Zapata [facility] BILATERAL - BY VASCULAR [facility] LAB URINE DRUG (IMMUNOASSAY) 2022-05-26 22:13:00 Ondina Yusuf Hum [facility] SCREEN URINALYSIS 2022-05-26 22:13:00 Meche Zapata [facility] URINE DRUG (IMMUNOASSAY) 2022-05-26 22:13:00 Ondina Yusuf Hum [facility] DRUG [facility] SCREEN URINALYSIS 2022-05-26 22:13:00 Meche Zapata [facility] URINE DRUG (IMMUNOASSAY) 2022-05-26 22:13:00 Ondina Yusuf Hum [facility] DRUG [facility] SCREEN URINALYSIS 2022-05-26 22:13:00 Meche Zapata [facility] URINE DRUG (IMMUNOASSAY) 2022-05-26 22:13:00 Madelin Emberkirit Hum [facility] SCREEN URINALYSIS 2022-05-26 22:13:00 Meche Zapata [facility] HB ECG ROUTINE & RHYTHM 2022-05-26 21:43:55 Meche Zapata [facility] HB ECG ROUTINE & RHYTHM 2022-05-26 21:43:55 Meche Zapata [facility] HB ECG ROUTINE & RHYTHM 2022-05-26 21:43:55 Meche Zapata [facility] HB ECG ROUTINE & RHYTHM 2022-05-26 21:43:55 Meche Zapata [facility] XR CHEST 1 VW 2022-05-26 21:37:08 Meche Zapata [facility] XR CHEST 1 VW 2022-05-26 21:37:08 Meche Zapata [facility] XR CHEST 1 VW 2022-05-26 21:37:08 JodiMeche delarosa [facility] XR CHEST 1 VW 2022-05-26 21:37:08 Meche Zapata [facility] MAGNESIUM 2022-05-26 21:20:00 JdoiMeche delarosa [facility] TROPONIN I 2022-05-26 21:20:00 Meche Zapata [facility] COMP. METABOLIC PANEL 2022-05-26 21:20:00 Meche Zapata [facility] ([id number]) [facility] CBC WITH DIFF 2022-05-26 21:20:00 Jodi, K [facility] N-TERMINAL PRO-BNP 2022-05-26 21:20:00 Meche Zapata [facility] MAGNESIUM 2022-05-26 21:20:00 Meche Zapata [facility] TROPONIN I 2022-05-26 21:20:00 JodiMeche delarosa [facility] COMP. METABOLIC PANEL 2022-05-26 21:20:00 Meche Zapata [facility] ([id number]) [facility] CBC WITH DIFF 2022-05-26 21:20:00 JodiMeche delarosa [facility] N-TERMINAL PRO-BNP 2022-05-26 21:20:00 Meche Zapata [facility] MAGNESIUM 2022-05-26 21:20:00 JodiMeche delarosa [facility] TROPONIN I 2022-05-26 21:20:00 JodiMeche delarosa [facility] COMP. METABOLIC PANEL 2022-05-26 21:20:00 Meche Zapata [facility] ([id number]) [facility] CBC WITH DIFF 2022-05-26 21:20:00 JodiMeche delarosa [facility] N-TERMINAL PRO-BNP 2022-05-26 21:20:00 Meche Zapata [facility] MAGNESIUM 2022-05-26 21:20:00 Meche Zapata [facility] TROPONIN I 2022-05-26 21:20:00 Meche Zapata [facility] COMP. METABOLIC PANEL 2022-05-26 21:20:00 Meche Zapata [facility] ([id number]) [facility] [place] CBC WITH DIFF 2022-05-26 21:20:00 Meche Zapata [facility] N-TERMINAL PRO-BNP 2022-05-26 21:20:00 Meche Zapata Meme [facility] HOSPITAL ADMISSION 2022-05-26 05:01:00 Doctor Unasari, [facility] Name [facility] [place] HOSPITAL ADMISSION 2022-05-26 05:01:00 Doctor Sergo, [facility] Name [facility] [place] HOSPITAL ADMISSION 2022-05-26 05:01:00 Doctor Sergo, [facility] Name [facility] [place] XR LUMBAR SPINE 3 VW 2022-05-23 09:47:55 Carlos Corbin [facility] DISCLOSURE AND CONSENT, 2022-05-19 05:01:00 Doctor Sergo, U [facility] MEDICAL AND SURGICAL [place] Medical [facility] PROCEDURES PATIENT QUESTIONNAIRE 2022-05-17 05:01:00 Doctor Sergo, [facility] [place] Medical Branch INSURANCE CORRESPONDENCE 2022-05-16 05:01:00 Doctor Sergo, [facility] Name Medical Branch INSURANCE CORRESPONDENCE 2022-05-04 05:01:00 Doctor Sergo, [facility] [place] [facility] [place] DME/SUPPLY JUSTIFICATION 2022-04-22 06:01:00 Doctor Sergo, [facility] [place] Medical [facility] PATIENT FINANCIAL 2022-04-13 15:27:54 Doctor Sergo, [facility] POLICY [place] [facility] SLEEP STUDY DATA REPORT 2022-04-02 06:01:00 Doctor Sergo, U [facility] [place] [facility] XR HIPS 2 VW RIGHT 2022-03-24 14:56:12 Susan Manjarrez [facility] MR LUMBAR SPINE WO 2022-03-24 14:41:33 Delroy Farah [facility] CONTRAST Medical Branch INSURANCE CORRESPONDENCE 2022-02-15 06:01:00 Doctor Unassigned, [facility] [place] [facility] EXTERNAL PROVIDER RECORDS 2022-02-03 06:01:00 Doctor Sergo, [facility] [place] [facility] REFERRAL- 2022-01-17 06:01:00 Doctor Sergo, [facility] REQUEST/RESPONSE [place] [facility] ASSIGNMENT OF BENEFITS 2021-12-08 15:11:38 Doctor Unassagnes, Un [facility] [place] [facility] SLEEP STUDY DATA REPORT 2021-11-04 05:01:00 Doctor Unassagnes, U [facility] Name Medical Branch Plan of Care Planned Activity Planned Date Details Comments Source Future Scheduled 2022-10-[address] [facility] Test 00:00:00 (Season Ended) [code = Medic al Center INFLUENZA VACCINE (Season Ended)] Future Scheduled 2022-10-[address] [facility] Test 00:00:00 (Season Ended) [code = Medic al Center INFLUENZA VACCINE (Season Ended)] Future Scheduled 2022-07-19 Scre[facility] 13:32:24 malignant neoplasm of colon (procedure) [code = 051524412] Future Scheduled 2022-07-19 Screening for [facility] Test 13:32:24 malignant neoplasm of colon (procedure) [code = 552272703] Future Scheduled 2022-07-19 Screening for [facility] Test 13:32:24 malignant neoplasm of colon (procedure) [code = 706997702] Future Scheduled 2022-07-19 COVID-19 VACCINE (#1) [facility] 13:32:24 [code = COVID-19 VACCINE (#1)] Future Scheduled 2022-07-19 [facility] 13:32:24 (procedure) [code = 921453101] Future Scheduled 2022-07-19 Screening for [facility] Test 13:32:24 malignant neoplasm of colon (procedure) [code = 161274200] Future Scheduled 2022-07-19 Screening for [facility] Test 13:32:24 malignant neoplasm of colon (procedure) [code = 323478933] Future Scheduled 2022-07-19 SHINGLES VACCINES (1 [facility] 13:32:24 of 2) [code = SHINGLES VACCINES (1 of 2)] Future Scheduled 2022-07-19 INFLUENZA VACCINE [facility] 13:32:24 [code = INFLUENZA VACCINE] Future Scheduled 2022-07-10 COVID-19 VACCINE (#1) [facility] 23:57:37 [code = COVID-19 VACCINE (#1)] Future Scheduled 2022-07-10 Hep[facility] C screening [facility] 23:57:37 (procedure) [code = 462962856] Future Scheduled 2022-07-10 [facility]:57[facility]37 [code = COLONOSCOPY SCREENING] Future Scheduled 2022-07-10 SHINGLES VACCINES (1 Met [facility] Test 23:57:37 of 2) [code = SHINGLES VACCINES (1 of 2)] Future Scheduled 2022-07-10 INFLUENZA VACCINE [facility] Test 23:57:37 [code = INFLUENZA VACCINE] Future Scheduled 2022-07-10 COVID-19 [facility] (#[facility] 23:57:37 [code = COVID-19 VACCINE (#1)] Future Scheduled 2022-07-10 [facility] 23:57:37 (procedure) [code = 663060050] Future Scheduled 2022-07-10 COLONOSCOPY SCREENING [facility] Test 23:57:37 [code = COLONOSCOPY SCREENING] Future Scheduled 2022-07-10 SHINGLES VACCINES (1 Met [facility] Test 23:57:37 of 2) [code = SHINGLES VACCINES (1 of 2)] Future Scheduled 2022-07-10 INFLUENZA VACCINE [facility] Test 23:57:37 [code = INFLUENZA VACCINE] Future Scheduled 2022-07-10 COVID-19 VACCINE (#1) [facility] 23:57:37 [code = COVID-19 VACCINE (#1)] Future Scheduled 2022-07-10 [facility]:57:37 (procedure) [code = 935996678] Future Scheduled 2022-07-10 [facility] Test 23:57:37 malignant neoplasm of colon (procedure) [code = 934739919] Future Scheduled 2022-07-10 SHINGLES VACCINES (1 Met [facility] Test 23:57:37 of 2) [code = SHINGLES VACCINES (1 of 2)] Future Scheduled 2022-07-10 INFLUENZA VACCINE [facility] Test 23:57:37 [code = INFLUENZA VACCINE] Future Scheduled 2022-07-03 COVID-19 VACCINE (#1) [facility] 23:24:31 [code = COVID-19 VACCINE (#1)] Future Scheduled 2022-07-03 [facility] C screening [facility] 23:24:31 (procedure) [code = 575840677] Future Scheduled 2022-07-03 [facility]COPY [facility]CREENING [facility] 23:24:31 [code = COLONOSCOPY SCREENING] Future Scheduled 2022-07-03 SHINGLES VACCINES (1 Met [facility] Test 23:24:31 of 2) [code = SHINGLES VACCINES (1 of 2)] Future Scheduled 2022-07-03 INFLUENZA VACCINE [facility] Test 23:24:31 [code = INFLUENZA VACCINE] Future Scheduled 2022-05-18 COVID[facility]19 [facility] 20:48[facility]55 [code = COVID-19 VACCINE (#1)] Future Scheduled 2022-05-18 Hep[facility] C screening [facility] Test 20:48:55 (procedure) [code = 671163305] Future Scheduled 2022-05-18 [facility] 20:48:55 [code = COLONOSCOPY SCREENING] Future Scheduled 2022-05-18 SHINGLES VACCINES (1 Met [facility] Test 20:48:55 of 2) [code = SHINGLES VACCINES (1 of 2)] Future Scheduled 2022-05-18 INFLUENZA VACCINE [facility] Test 20:48:55 [code = INFLUENZA VACCINE] Future Scheduled 2022-05-18 COVID-19 VACCINE (#1) [facility] 20:48:55 [code = COVID-19 VACCINE (#1)] Future Scheduled 2022-05-18 Hep[facility] C screening [facility] 20:48:55 (procedure) [code = 287168726] Future Scheduled 2022-05-18 [facility] 20:48:55 [code = COLONOSCOPY SCREENING] [...] Future Scheduled 2021-10-15 HEPATITIS B VACCINES Met [facility] Test 19:26:49 (1 of 3 - 3-dose series) [code = HEPATITIS B VACCINES (1 of 3 - 3-dose series)] Future Scheduled 2021-10-15 COVID-19 VACCINE (#1) Me [facility] Test 19:26:49 [code = COVID-19 VACCINE (#1)] Future Scheduled 2021-10-15 [facility] 19:26:49 (procedure) [code = 013393366] Future Scheduled 2021-10-15 [facility]COPY [facility]CRE[facility]ING [facility] Test 19:26:49 [code = COLONOSCOPY SCREENING] Future Scheduled 2021-10-15 SHINGLES VACCINES (1 [place] [facility] Test 19:26:49 of 2) [code = SHINGLES VACCINES (1 of 2)] Future Scheduled 2021-10-15 INFLUENZA VACCINE [facility] 19:26:49 [code = INFLUENZA VACCINE] Future Scheduled 2021-10-12 HEPATITIS B VACCINES [facility] Test 17:47:43 (1 of 3 - 3-dose series) [code = HEPATITIS B VACCINES (1 of 3 - 3-dose series)] Future Scheduled 2021-10-12 COVID-19 VACCINE (#1) [facility] Test 17:47:43 [code = COVID-19 VACCINE (#1)] Future Scheduled 2021-10-12 [facility] 17[facility]47:43 (procedure) [code = 733106842] Future Scheduled 2021-10-12 COLONOSCOPY SCREENING [facility] Test 17:47:43 [code = COLONOSCOPY SCREENING] Future Scheduled 2021-10-12 SHINGLES VACCINES (1 [facility] Test 17:47:43 of 2) [code = SHINGLES VACCINES (1 of 2)] Future Scheduled 2021-10-12 INFLUENZA VACCINE Method [facility] Test 17:47:43 [code = INFLUENZA [...] Luke s Test 00:00:00 (procedure) [code = [facility] 54272039] Future Scheduled [address] [facility] 00:[facility]:00 (procedure) [code = [facility] 56890169] Future Scheduled 1981 DTAP/TDAP/TD VACCINES [facility] I [...] [facility] l Center colon (procedure) [code = 092846125] Future Scheduled [address] [facility] malignant ne[facility] colon (procedure) [code = 682014176] Future Scheduled [address] [facility] Test 00:00:00 malignant ne[facility] colon (procedure) [code = 348465259] Future Scheduled [address] [facility] Test 00:00:00 malignant neoplasm [facility] colon (procedure) [code = 061763654] Future Scheduled 1962 Sigmoidoscopy [[facility]] Medical [facility] Future Scheduled [address] [facility] Test 00:00:00 (combo) [code = CT Medical C enter Colonography (combo)] Future Scheduled [address] [facility] Test 00:00:00 malignant neoplasm of [facility] colon (procedure) [code = 829020597] Future Scheduled [address] [facility] Test 00:00:00 malignant neoplasm [facility] colon (procedure) [code = 443810250] Future Scheduled [address] [facility] Test 00:00:00 malignant neoplasm [facility] colon (procedure) [code = 765771579] Future Scheduled [address] [facility] Test 00:00:00 malignant neoplasm of [facility] colon (procedure) [code = 578705089] Future Scheduled 1962 Sigmoidoscopy [facility]oscopy] Medical Cent[facility] r Encounters Start End Encounter Admission Attending Care Care Encounter Source Date/Time Date/Time Type Type Clinicians Facility Department ID 2022-06-11 Outpatient 3 [id number] ENC[facility] PM [facility] 03:48:38 [facility] [place] 2022-06-10 Outpatient 3 [id number] ENC[facility] PM [facility] 02:10:29 0428 [facility] [place] 2022-06-09 Outpatient 3 [id number] ENCPL PM [facility] 10:37:19 0427 [facility] [place] 2022-06-01 Outpatient R VERO [facility] TIFFANY [id number] Univers 14:27:32 IZABELA PHAM [facility] 2022-06-01 Outpatient 3 [id number] ENCPL REF [id number] [facility] 12:13:29 0419 [facility] [place] 2020-12-14 Emergency [facility] [id number] Univers 03:38:20 ity of [facility] 2020-12-14 Emergency [facility] [id number] Univers 02:28:47 ity of [facility] 2020-12-14 Emergency [facility] [id number] Univers 02:03:46 ity of [facility] 2020-12-13 Emergency [facility] [id number] Univers [facility]02 In[facility] [id number] [facility] 19:02:00 2020-02-02 Inpatient [facility] [id number] [facility] 19:02:00 30 2022-09-15 2022-09-15 Outpatient R LAWRENCE PETERSON [facility] 1 [id number] Univers 10:00:00 10:00:00 LAWRENCE PETERSON [facility] 2022-08-03 2022-08-03 Outpatient R JERRICA [facility] [id number] Univers 10:15:00 10:15:00 ROBINA [facility] 2022-07-18 2022-07-18 Transition ANASTASIIA Calderon 1.2.840.114 [id number] Univers 00:00:00 00:00:00 of Care Elyssa BENNETT 350.1.13.10 i ty of [place] [id number] [facility] [address] 2022-07-16 2022-07-16 Outpatient U LAWRENCE PETERSON [facility] 1 [id number] Univers 09:11:00 12:30:00 LAWRENCE PETERSON ity [facility] 2022-07-16 2022-07-16 Hospital TYE Peterson 1.2.840.114 [id number] Univers 09:11:00 12:30:00 Encounter Lawrence BEARD 350.1.13.10 ity of HOSPITAL 4.2.7.2.686 Neal as [phone] [facility] [address] 2022-07-12 2022-07-12 Inpatient ER ROMARIO [facility] Medical ICU 9 [id number] [facility] 04:02:00 14:55:00 ELLE 2022-07-11 2022-07-11 Emergency X DENICENEW [facility] ERT [id number] Univers 10:09:00 11:10:00 [facility] 2022-07-11 Emergency X DENICEN[facility] ERT [id number] Univers 10:09:00 11:10:00 [facility] 2022-07-11 2022-07-11 Emergency Jayes, TRAUMA 1.2.290.109 [id number] Univers 10:09:00 11:10:00 Justen CENTER 350.1.13.10 it [place] [id number] [facility] [address] 2022-07-11 2022-07-11 Emergency [facility] ERT [id number] Univers 04:26:00 07:38:00 RAMANA kirit [facility] 2022-07-11 2022-07-11 Emergency Morrical, Ángel O TRAUMA 1.2. 840.114 [id number] Univers 04:26:00 07:38:00 Ramana Cruz [facility] 350.1.13 .10 ity [place] [id number] [facility] [address] 2022-07-11 2022-07-11 Emergency [facility] 1.2.364.536 [id number] Univers 00:22:00 00:26:00 [place] 350.1.13.10 i ty of [place] C[place]US [id number] [address] 2022-07-08 2022-07-08 Emergency X [facility] ERT [id number] Univers 13:26:00 13:45:00 ity [facility] 2022-07-08 2022-07-08 Emergency TRAUMA 1.2.917.561 [id number] Univers 13:26:00 13:45:00 CENTER 350.1.13.10 [place] [id number] [address] 2022-07-05 2022-07-05 Outpatient Zeke BECERRIL [facility] [id number] Univers 14:30:00 14:30:00 ROBINA [facility] 2022-07-05 2022-07-05 Outpatient [facility] [id number] Univers 14:30:00 14:30:00 [facility] 2022-07-05 2022-07-05 Emergency X [facility] ERT [id number] Univers 05:53:00 11:12:00 TRACEY [facility] 2022-07-05 2022-07-05 Emergency Hilda Milleron TRAU[place] 1.2.840 .114 [id number] Univers 05:53:00 11:12:00 Tracey Trinidad [place] 350.1.13.10 [place] [id number] [address] 2022-07-04 2022-07-04 Emergency [facility] 1.2.047.798 [id number] Univers 14:13:00 14:19:00 [place] 350.1.13.10 i ty [place] [id number] [address] 2022-07-04 2022-07-04 Outpatient [facility] [id number] Univers 14:00:00 14:00:00 [facility] 2022-07-04 2022-07-04 Outpatient R JERRICA [facility] ERT [id number] Univers 14:00:00 14:00:00 [facility] 2022-07-04 2022-07-04 Telephone [facility] 1.2.840.114 [id number] Univers 00:00:00 00:00:00 [facility] 350.1.13.10 it y of [place] 4.2.7.2.686 [place] as JOEL?BLEA [id number] [address] OFFICE [facility] 2022-07-04 2022-07-04 [facility] 1.2.840.114 [id number] Univers 00:00:00 00:00:00 Robina HEALTH 350.1.13.10 it y of [place] 4.2.7.2.686 Neal as JOEL?BLEA [id number] [address] OFFICE [facility] 2022-06-28 2022-06-28 Telephone [facility] 1.2.626.409 [id number] Univers 00:00:00 00:00:00 [facility] 350.1.13.10 i ty of [place].2.7.2.686 [place] julissa LAMBERT [id number] [address] OFFICE [facility] 2022-06-27 2022-06-27 Outpatient R VERO [facility] [id number] Univers 13:15:00 13:15:00 IZABELA PHAM [facility] 2022-06-21 2022-06-23 Hospital ER Kaden [facility] 1 [id number] [facility] 08:54:00 18:00:00 [facility] 2022-06-23 Inpatient ER RHETT MOORE Oncology [id number] [facility] 08:54:00 18:00:00 [facility] 2022-06-22 2022-06-22 Telephone [facility] 1.2.840.114 [id number] Univers 00:00:00 00:00:00 [facility] 350.1.13.10 it y of [place] 4.2.7.2.686 [place] as JOEL?BLEA [id number] [address] OFFICE BUILDING 2022-06-21 2022-06-21 Orders Doctor LAKESHIA 1.2.840.114 [id number] Univers 00:00:00 00:00:00 Only Unassigned, CHILO 350.1.13.10 ity of [place] [facility] 4.2.7.2.686 Neal as [id number] [address] 2022-06-17 2022-06-17 Telephone Jerrica [facility] 1.2.840.114 [id number] Univers 00:00:00 00:00:00 [facility] 350.1.13.10 it y of Edziyad TORREZ 4.2.7.2.686 [place] JOEL?BLEA [id number] [address] OFFICE [facility] 2022-06-16 2022-06-16 Office [facility] 1.2.840.114 [id number] Univers 11:30:00 11:45:00 Visit [facility] 350.1.13.10 i ty of [place].2.[place].2.[place] [id number] [address] OFFICE [facility] 2022-06-16 2022-06-16 Outpatient R LAWRENCE PETERSON [facility] 1 [id number] Univers 11:30:00 11:30:00 LAWRENCE PETERSON ity of [facility] 2022-06-16 2022-06-16 Telephone [facility]NEW [facility] 1.2.449.792 [id number] Univers 00:00:00 00:00:00 [facility] 350.1.13.10 i ty of [place] [id number] [address] OFFICE BUILDING 2022-06-14 2022-06-14 Telephone [facility]NEW [facility] 1.2.405.293 [id number] Univers 00:00:00 00:00:00 [facility] 350.1.13.10 i ty of [place]2.[place] [id number] [facility] MEDICAL [address] OFFICE BUILDING 2022-06-08 2022-06-08 Telephone LAKESHIA Pham 1.2.123.322 [id number] Univers 00:00:00 00:00:00 Izabela BEARD 350.1.13.10 i ty of HOSPITAL 4.2.7.2.686 [place] as [phone] [facility] [address] 2022-06-08 2022-06-08 Transition ANASTASIIA Calderon 1.2.840.114 10 [id number] Univers 00:00:00 00:00:00 of Care Elyssa Thornton SABRINA 350.1.13.10 i ty of [place].2.7.2.[place] [id number] [facility] [address] 2022-05-26 2022-06-[address] [facility] [id number] Univers 15:42:00 15:09:00 ALLAN [facility] 2022-05-26 2022-06-07 [facility] Meche Zapata 1.2.840.1 14 [id number] Univers 15:42:00 15:09:00 Encounter Luis Huerta 350.1.13.10 ity [facility] 4.2.7.2.686 Lance Swift [phone] [facility] Allan Lynch [address] 2022-06-07 2022-06-07 Outpatient [facility] [id number] Univers 13:00:00 13:00:00 RENEE hooks [facility] 2022-06-03 2022-06-03 Surgery TYE Peterson 1.2.840.114 [id number] Univers 07:00:00 09:33:00 Lawrence BEARD 350.1.13.10 i ty of HOSPITAL 4.2.7.2.686 [place] as [phone] [facility] [address] 2022-06-02 2022-06-02 Telephone Vero [facility] 1.2.052.977 [id number] Univers 00:00:00 00:00:00 Izabela TORREZ 350.1.13.10 ity of [place] [id number] Ne dical NAL [address] [facility] 2022-06-01 2022-06-01 Telephone Jerrica [facility] 1.2.840.114 [id number] Univers 00:00:00 00:00:00 [facility] 350.1.13.10 it y of José Miguel [place] 4.2.7.2.686 Neal as JOEL?BLEA [phone] Ne dical KNEY [address] MEDICAL OFFICE BUILDING 2022-05-30 2022-05-30 Surgery TYE Lynch 1.2.840.114 [id number] Univers 20:00:00 22:46:00 Allan CHILO 350.1.13.10 it y of [facility] 4.2.7.2.686 [place] as [phone] [facility] [address] 2022-05-29 2022-05-29 Surgery TYE Lynch 1.2.840.114 [id number] Univers 07:20:00 10:33:00 Allan CHILO 350.1.13.10 it y of [facility] 4.2.7.2.686 [place] as [phone] [facility] [address] 2022-05-26 2022-05-26 Outpatient R JERRICA [facility] [id number] Univers 09:45:00 09:45:00 ROBINA [facility] 2022-05-24 2022-05-24 Outpatient R ROGER [facility] [id number] Univers 00:00:00 00:00:00 WOO [facility] 2022-05-24 2022-05-24 Prep [facility] 1.2.840.114 [id number] Univers 00:00:00 00:00:00 Surgery Izabela TORREZ 350.1.13.10 ity [facility] [place] [phone] Ne dical NAL 188 [facility] 2022-05-23 2022-05-23 Emergency X NEYMAR [facility] ERT [id number] Univers 16:40:00 18:12:00 [facility] 2022-05-232022-05-23 [facility] ERT [id number] Univers 16:40:00 18:12:00 FOLUSHO ity of [facility] 2022-05-23 2022-05-23 [facility] 1.2.840.114 10 [id number] Univers 16:40:00 18:12:00 Henryo Famiila TORREZ 350.1.13.10 ity of [facility] 4.2.7.2.[place] [id number] [address] 2022-05-23 2022-05-23 Emergency [facility] 1.2.847.011 [id number] Univers 03:49:00 06:12:00 Carlos Julissa TORREZ 350.1.13.10 ity of [facility] 4.2.7.2.[place] [id number] [address] 2022-05-23 2022-05-23 [facility] 1.2.840.114 [id number] Univers 00:00:00 00:00:00 [facility] 350.1.13.10 it y of José Miguel [place] 4.2.7.2.686 Neal as JOEL?BLEA [phone] Ne edison LOAIZA [address] MEDICAL OFFICE [facility] 2022-05-19 2022-05-19 Outpatient R IZABELA PHAM [facility] [id number] Univers 09:30:00 10:37:40 IZABELA PHAM ity [facility] 2022-05-19 2022-05-19 Office [facility] 1.2.840.114 [id number] Univers 09:30:00 10:37:40 Visit Izabela TORREZ 350.1.13.10 ity of [facility] 4.2.[place].2.[place] [id number] Ne edison ARENAS [address] BUILDING 2022-05-19 2022-05-19 Orders Doctor ASHER 1.2.840.114 [id number] Univers 00:00:00 00:00:00 Only Unassigned, CHILO 350.1.13.10 ity of [place] [facility] 4.2.7.2.686 Neal as [id number] [address] 2022-05-17 2022-05-17 Outpatient R ROGER [facility] [id number] Univers 08:00:00 08:57:35 WOO [facility] 2022-05-17 2022-05-17 Orders Doctor LAKESHIA 1.2.840.114 [id number] Univers 00:00:00 00:00:00 Only Unassigned, CHILO 350.1.13.10 ity of [place] [facility] 4.2.7.2.686 Neal as [id number] [address] 2022-05-16 2022-05-16 Orders Doctor LAKESHIA 1.2.840.114 [id number] Univers 00:00:00 00:00:00 Only Unassigned, CHILO 350.1.13.10 ity of [place] [facility] 4.2.7.2.686 Neal as [id number] [address] 2022-05-05 2022-05-05 [facility] [id number] Univers 10:00:00 10:00:00 [facility] 2022-05-05 2022-05-05 Telephone [facility] 1.2.840.114 [id number] Univers 00:00:00 00:00:00 [facility] 350.1.13.10 it y of [facility] 4.2.7.2.686 [place] as JOEL?BLEA [id number] [address] MEDICAL OFFICE BUILDING 2022-05-04 2022-05-04 Orders Doctor LAKESHIA 1.2.840.114 [id number] Univers 00:00:00 00:00:00 Only Unassigned, CHILO 350.1.13.10 ity of [place] [facility] 4.2.7.2.686 Neal as [id number] [address] 2022-05-03 2022-05-03 Office [facility] 1.2.840.114 [id number] Univers 09:45:00 10:15:00 Visit [facility] 350.1.13.10 it y of [place] 4.2.7.2.686 Neal as JOEL?BLEA [id number] Ne alpaletty LOAIZA [address] [place] [address] MEDICAL OFFICE BUILDING 2022-05-03 2022-05-03 Outpatient R JERRICA [facility] [id number] Univers 09:45:00 09:45:00 ROBINA ity of [facility] 2022-04-22 2022-04-22 Orders Doctor LAKESHIA 1.2.840.114 [id number] Univers 00:00:00 00:00:00 Only Unassigned, CHILO 350.1.13.10 ity of [place] [facility] 4.2.7.2.686 Neal as [id number] [address] 2022-04-22 2022-04-22 Telephone [facility] 1.2.840.114 10 [id number] Univers 00:00:00 00:00:00 Strahil T [place] 350.1.13.10 ity of [place] [id number] [address] 2022-04-13 2022-04-13 Office [facility] 1.2.219.697 [id number] [facility] 09:30:00 10:00:00 Visit Strahil T [place] 350.1.13.10 ity of [place].2.[place] [id number] [address] 2022-04-13 2022-04-13 Outpatient R DAWSON CHOUDHURY [facility] [id number] Univers 09:30:00 09:30:00 DAWSON CHOUDHURY ity [facility] 2022-04-13 2022-04-13 Orders Doctor LAKESHIA 1.2.840.114 [id number] Univers 00:00:00 00:00:00 Only Unassigned, CHILO 350.1.13.10 ity of [place] [facility] 4.2.7.2.686 Neal as [id number] [address] 2022-04-13 2022-04-13 Telephone [facility] 1.2.840.114 10 [id number] Univers 00:00:00 00:00:00 Strahil T MULTISPEC 350.1.13.10 ity of [place] 4.2.7.2.686 [facility] [phone] [facility] AND JONAH [address] [facility] 2022-04-07 2022-04-07 Office [facility] 1.2.840.114 [id number] Univers 10:30:00 11:02:20 Visit [facility] 350.1.13.10 it y of José Miguel [place] 4.2.7.2.686 Neal as JOEL?BLEA [id number] [address] MEDICAL OFFICE BUILDING 2022-04-07 2022-04-07 Outpatient [facility] [id number] Univers 10:30:00 10:30:00 ROBINA ity of [facility] 2022-04-06 2022-04-06 Telephone [facility] 1.2.840.114 [id number] Univers 00:00:00 00:00:00 [facility] 350.1.13.10 it y of Edziyad [place] 4.2.7.2.686 Neal as JOEL?BLEA [phone] [address] MEDICAL OFFICE [facility] 2022-04-02 2022-04-02 [employer] Keeper 1, [facility] Bed [facility] 1. 2.840.114 [id number] Univers 20:00:00 22:30:00 Visit Dawson Choudhury 350.1.13. 10 ity of [place] 4.2.7.2.686 [facility] [id number] [facility] [address] 2022-04-02 2022-04-02 Outpatient R DAWSON CHOUDHURY [facility] [id number] Univers 20:00:00 20:00:00 DAWSON CHOUDHURY ity of [facility] 2022-04-02 2022-04-02 Orders Doctor ASHER 1.2.840.114 [id number] Univers 00:00:00 00:00:00 Only Unassigned, CHILO 350.1.13.10 ity of [place] [facility] 4.2.7.2.686 Neal as [phone] [facility] [address] 2022-03-24 2022-03-24 [facility] Susan Manjarrez [facility] 1.2.840.114 10 [id number] Univers 08:01:23 23:59:00 Encounter SHAN 350.1.13.10 ity of [facility] 4.2.7.2.686 [facility] [id number] [address] 2022-03-24 2022-03-24 Outpatient R [facility] [id number] Univers 07:57:08 08:00:00 DELROY ity of [facility] 2022-03-24 2022-03-24 [facility] 1.2.840.114 [id number] Univers 07:57:08 08:00:00 Encounter Delroy TORREZ 350.1.13.10 ity of [place] 4.2.7.2.686 [facility] [id number] [address] 2022-02-16 2022-02-16 Telephone [facility] 1.2.840.114 [id number] Univers 00:00:00 00:00:00 [facility] 350.1.13.10 it y of [place] SHAN 4.2.7.2.686 Neal as JOEL?BLEA [phone] [address] MEDICAL OFFICE BUILDING 2022-02-15 2022-02-15 Orders Doctor LAKESHIA 1.2.840.114 [id number] Univers 00:00:00 00:00:00 Only Unassigned, CHILO 350.1.13.10 ity of [place] [facility] 4.2.7.2.686 Neal as [phone] [address] 2022-02-03 2022-02-03 Orders Doctor LAKESHIA 1.2.840.114 [id number] Univers 00:00:00 00:00:00 Only Unassigned, CHILO 350.1.13.10 ity of [place] [facility] 4.2.7.2.686 Neal as [id number] [address] 2022-02-02 2022-02-02 Office [facility] 1.2.840.114 [id number] Univers 09:30:00 09:45:00 Visit [facility] 350.1.13.10 it y of [place] 4.2.7.2.686 Neal as JOEL?BLEA [id number] [address] MEDICAL OFFICE [facility] 2022-02-02 2022-02-02 Outpatient R JERRICA [facility] [id number] Univers 09:30:00 09:40:22 ROBINA ity [facility] 2022-01-17 2022-01-17 Orders Doctor ASHER 1.2.840.114 [id number] Univers 00:00:00 00:00:00 Only Unassigned, CHILO 350.1.13.[address] [facility] 4.2.7.2.686 Neal as [id number] [address] 2022-01-03 2022-01-03 Office Jerrica [facility] 1.2.840.114 [id number] [facility] 09:15:00 09:30:00 Visit [facility] 350.1.13.10 it y of José [place] [facility] 4.2.7.2.686 Neal as JOEL?BLEA [phone] [address] OFFICE [facility] 2022-01-03 2022-01-03 Outpatient R JERRICA [facility] [id number] Univers 09:15:00 09:15:00 ROBINA [facility] 2021-12-08 2021-12-08 Office Macey [facility] 1.2.991.339 [id number] Univers 10:20:00 10:40:00 Visit Dawson TORREZ 350.1.13.10 ity [facility] 4.2.7.2.[place] [id number] Ne edison [facility] 085 [facility] 2021-12-08 2021-12-08 Outpatient R DAWSON CHOUDHURY [facility] [id number] Univers 10:20:00 10:20:00 DAWSON CHOUDHURY [facility] 2021-12-08 2021-12-08 Outpatient R DAWSON CHOUDHURY [facility] [id number] Univers 10:20:00 10:20:00 MARYLIN CHOUDHURYL [place] [facility] 2021-12-08 2021-12-08 Orders Doctor ASHER [id number] Univers 00:00:00 00:00:00 Only Unassigned, CHILO [id number] [facility] 4.2.7.2.686 Neal as [phone] [facility] [address] 2021-12-02 2021-12-02 Office Jerrica [facility] [id number] Univers 11:00:00 11:15:00 Visit [facility] [id number] it y of José Miguel [facility] [id number] Neal as JOEL?BLEA [phone] [address] MEDICAL OFFICE BUILDING 2021-12-02 2021-12-02 Outpatient R JERRICA [facility] [id number] Univers 11:00:00 11:00:00 ROBINA [facility] 2021-11-25 2021-11-25 Outpatient R BINU CHOUDHURYNMHillary [facility] [id number] Univers 20:00:00 20:00:00 MACEY BINUCHANTELLEL [facility] 2021-11-22 2021-11-22 Outpatient R BINU CHOUDHURYNMHillary [facility] [id number] Univers 10:15:00 10:15:00 MACEY BINUNMHillary [facility] 2021-11-04 2021-11-04 Vault Keeper Agapito, [facility] [id number] .[id number] Univers 10:00:00 10:15:00 Visit Dawson Choudhury 350.1.13. 10 ity [facility] [id number] [place] [facility] [phone] [facility] [facility] [address] 2021-11-04 2021-11-04 Outpatient R BINU CHOUDHURYNMHillary [facility] [id number] Univers 10:00:00 10:00:00 MACEY BINUNML [facility] 2021-11-04 2021-11-04 Orders Doctor ASHER 1.2.840.114 [id number] Univers 00:00:00 00:00:00 Only Unassigned, CHILO 350.1.13.10 ity of [place] [facility] 4.2.7.2.686 Neal as [phone] [facility] [address] 2021-11-02 2021-11-02 Outpatient R JERRICA [facility] [id number] Univers 09:30:00 10:02:11 ROBINA ity [facility] 2021-11-02 2021-11-02 Office [facility] 1.2.840.114 [id number] Univers 09:30:00 09:45:00 Visit [facility] 350.1.13.10 it y of [place] 4.2.7.2.686 Neal as JOEL?BLEA [id number] [address] MEDICAL OFFICE BUILDING 2021-11-02 2021-11-02 Telephone [facility] 1.2.840.114 [id number] Univers 00:00:00 00:00:00 Strahil T MULTISPEC 350.1.13.10 ity of [place] [phone] [facility] AND MCKENZIE [address] [facility] 2021-10-07 2021-10-07 Telephone [facility] 1.2.840.114 [id number] Univers 00:00:00 00:00:00 [facility] 350.1.13.10 it y of [place] 4.2.7.2.686 Neal as JOEL?BLEA [phone] [address] MEDICAL OFFICE BUILDING 2021-10-05 2021-10-05 Outpatient Zeke BECERRIL [facility] [id number] Univers 14:15:00 14:43:53 ROBINA kirit [facility] 2021-10-05 2021-10-05 [facility] 1.2.840.114 [id number] Univers 14:15:00 14:30:00 Visit [facility] 350.1.13.10 it y of [place] 4.2.7.2.686 Neal as JOEL?BLEA [phone] [address] MEDICAL OFFICE BUILDING 2021-10-05 2021-10-05 [facility] [id number] Univers 14:15:00 14:15:00 [facility] 2021-09-22 2021-09-22 Office [facility] 1.2.196.752 [id number] Univers 13:40:00 14:00:00 Visit Dawson Jeronimo SHAN 350.1.13.10 ity of [place] [phone] [place] 229535 [facility] 2021-09-22 2021-09-22 Outpatient R GUERA [facility] [id number] Univers 13:40:00 13:40:00 [facility] 2021-09-22 2021-09-22 Outpatient [facility] [id number] Univers 13:40:00 13:40:00 [facility] 2021-09-21 2021-09-21 Letter LAKESHIA Morales 1.2.840.114 [id number] Univers 00:00:00 00:00:00 (Out) Erma Pringle CHILO 350.1.13.10 it y of [facility] 4.2.7.2.686 Neal as [id number] [address] 2021-09-20 2021-09-20 [facility] [id number] Univers 15:00:00 15:33:41 MAGDALENE hooks o f [facility] 2021-09-20 2021-09-20 [facility] 1.2.840. 114 [id number] Univers 15:00:00 15:33:41 Care [facility] 350.1.13.10 ity of [place] 4.2.7.2.686 Neal as JOEL?BLEA [phone] [facility] [address] MEDICAL OFFICE BUILDING 2021-09-20 2021-09-20 Outpatient [facility] [id number] Univers 15:00:00 15:33:41 MAGDALENE hooks o f [facility] 2021-09-15 2021-09-15 Outpatient [facility] [id number] Univers 11:15:00 11:37:11 ROBINA kirit [facility] 2021-09-15 2021-09-15 Office [facility] 1.2.840.114 [id number] Univers 11:15:00 11:30:00 Visit Robina [facility] 350.1.13.10 it y of José Miguel [facility] 4.2.7.2.686 Neal as JOEL?BLEA [phone] [address] MEDICAL OFFICE [facility] 2021-09-15 2021-09-15 Outpatient Zeke [facility] [id number] Univers 11:15:00 11:15:00 ROBINA [facility] 2021-06-30 2021-06-30 Orders Doctor LAKESHIA 1.2.840.114 [id number] Univers 00:00:00 00:00:00 Only Unassigned, CHILO 350.1.13.10 ity of [place] [facility] 4.2.7.2.686 Neal as [phone] [address] 2021-05-24 2021-05-24 Telephone [facility] 1.2.840.114 [id number] Univers 00:00:00 00:00:00 [facility] 350.1.13.10 it y of José Miguel TORREZ 4.2.7.2.686 Neal as JOEL?BLEA [phone] [address] OFFICE [facility] 2021-05-11 2021-05-11 Outpatient [facility] [id number] Univers 11:45:00 11:45:00 ROBINA kirit [facility] 2021-03-31 2021-04-02 Emergency X SYD [facility] ERT [id number] Univers 09:05:00 07:46:00 ACRLOS hooks [facility] 2021-03-31 2021-04-02 Emergency Ladonna Bryant [facility] 1.2.8 40.114 [id number] Univers 09:05:00 07:46:00 Carlos Corbin 350.1.13.10 ity of [facility] 4.2.7.2.686 [facility] [id number] [address] 2020-12-21 2020-12-21 Emergency X [facility] ERT [id number] Univers 12:12:00 16:04:00 MICHAEL itkirit [facility] 2020-12-21 2020-12-21 Emergency [facility] 1.2.240.304 [id number] Univers 12:12:00 16:04:00 Michael [facility] 350.1.13.10 i ty of ANUJIZABELA 4.2.7.2.686 [facility] [phone] [address] 2020-12-10 2020-12-10 Outpatient Zeke [facility] [id number] Univers 09:00:00 09:00:00 ROBINA kirit [facility] 2020-12-08 2020-12-08 Emergency [facility] 1.2.878.479 [id number] Univers 05:45:00 08:15:00 Carlos Torrez 350.1.13.10 ity [facility] 4.2.7.2.686 [facility] [id number] [address] 2020-12-08 2020-12-08 Emergency X [facility]ALEANEW [facility] ERT [id number] Univers 05:45:00 08:15:00 CARLOS ysabelkirit [facility] 2020-11-10 2020-11-10 Outpatient [facility] [id number] Univers 13:10:00 13:10:00 ysabelkirit [facility] 2020-11-10 2020-11-10 Outpatient Zeke BECERRIL [facility] [id number] Univers 09:30:00 10:05:31 ROBINA [facility] 2020-11-10 2020-11-10 Office [facility] 1.2.840.114 [id number] Univers 09:22:11 09:52:11 Visit [facility] 350.1.13.10 it y of José Miguel Torrez 4.2.7.2.686 Neal as Joel?Blea [id number] Ne [place] [address] Medical Office Building 2020-09-19 2020-09-19 Outpatient [facility] [address] 03:24:00 03:24:00 E__ 28972 Medica l Group 2020-09-04 2020-09-04 Orders Doctor LAKESHIA 1.2.840.114 [id number] Univers 00:00:00 00:00:00 Only Unassigned, CHILO 350.1.13.[address] 4.2.7.2.686 Neal as [phone] [facility] [address] 2020-08-22 2020-08-22 Outpatient [facility] [address] 05:19:00 05:19:00 E__ [id number] Medica l Group 2020-08-17 2020-08-17 Outpatient Zeke [facility] [id number] [facility] 09:00:00 09:00:00 WONDIFUL ity o f [facility] 2020-08-06 2020-08-07 [facility] Edgard Leo 1.2.840.1 14 [id number] Univers 13:41:00 23:00:00 Encounter Kirsten Magali Chilo 350.1.13.10 ity of [facility] 4.2.7.2.686 Neal as [phone] [facility] [address] 2020-08-03 2020-08-05 Emergency Ted Lion 1.2.840. 114 [id number] Univers 08:54:00 16:11:00 Allen Maravilla 350.1.13.10 ity of Georgina Duncan [facility] 4.2.7.2 .686 [place] [phone] [facility] [address] 2020-07-31 2020-07-31 Emergency [facility] 1.2.840.114 [id number] Univers 08:39:00 14:39:00 Ladonna Torrez 350.1.13.10 ity of [place] 4.2.7.2.686 [facility] [phone] [facility] [address] 2020-07-25 2020-07-25 Outpatient [facility] [id number] 997 [place] 06:29:00 06:29:00 E__ 48514 Medica l Group 2020-07-24 2020-07-24 Outpatient YVON[facility]URSULA [facility] 456 7-202 [place] 11:00:00 11:00:00 E__ 71414 Medica l Group 2020-06-08 2020-06-08 Emergency [place], [facility] 1.2.538.960 [id number] 6577 [facility] 13:48:00 17:01:00 Ted [place] 350.1.13.10 i ty of [place] [phone] [facility] [address] 2020-01-28 2020-01-28 Outpatient JAM, [facility] [id number] [address] [place] [address] 00:00:00 00:00:00 [facility] 2020-01-20 2020-01-20 Outpatient EGBULEMARK, [facility] [id number] [place] 11:36:00 16:26:30 [facility] 2019-10-29 2019-10-31 Inpatient [place] [id number] 90707933 [address] [place] [address] 00:00:00 00:00:00 YASMINE [address] [place] 2019-03-12 2019-03-12 [facility] [place] 1.2.840.114 [id number] Univers 14:43:00 23:59:00 Encounter [facility] 350.1.13.10 [place] [phone] [facility] [address] 2019-03-11 2019-03-12 [facility] 1.2.840.114 [id number] Univers 15:17:00 17:21:00 Encounter [facility] 350.1.13.10 [place] [phone] [facility] [address] 2019-03-11 2019-03-12 Office Surgery, Td General [facility] 1.2.8 40.114 [id number] Univers 09:09:17 08:54:29 Visit Faisal, [facility] 350.1.13.10 ity of [place] 4.2.7.2.686 [place] [phone] [facility] [address] 2018-10-31 2018-10-31 Office Surgery, Tdc Vascular [facility] 1.2. 840.114 [id number] Univers 08:41:29 09:11:29 Visit [place] Ramana [facility] 350.1.13.10 ity of 4.2.7.2.686 Akbar costa [phone] [place] [address] [address] 2014-07-22 2014-07-22 [facility] [id number] [place] 17:51:00 21:57:00 Emergency r Titi 00 l [facility] 2014-07-22 2014-07-22 [facility] [id number] [place] 17:51:00 21:57:00 Emergency r Titi 00 l [facility] 2014-07-22 2014-07-22 Outpatient [place], 2.16.840. 2.16.840.1 . [id number] 12:51:00 16:57:00 Christy 1.375374. 284892.3.61 00 Radhika 3.615.0.1 5.0.101 01 Results Test Description Test Time Test Comments Results Result [facility] e Comments RAD, CHEST, 1 2022-06-15 Post-intubationReason VIEW, NON DEPT 0 for 13:01:00 exam:->encephalopathy , r/o [facility] be performed at the CHARO KAYE bedside?->Yes [...] (test code 3 = 2661) BASIC METABOLIC [id number] 09:21:22 Test Item Value Reference Range Interpretation [...] (test code = 697) EGFR (BEAKER) 102 Interpretati on of eGFR (test code = mL/min/1.73 values [...] not appl icable for dialysis patien ts Case Work Aide ID - [id number] 07:01:03 Test Item Value Reference Range Interpretation Comments PHOSPHORUS (BEAKER) (test code = 3.1 mg/dL 2.3-4.7 604) Case Work Aide ID Marquis KENNEY WHEPATIC FUNCTION [id number] 07:01:02 Test Item Value Reference Range Interpretation [...] (test code = 21 U/L 6-55 347) Case Work Aide ID Marquis KENNEY [id number] 07:01:02 Test Item Value Reference Range Interpretation Comments MAGNESIUM (BEAKER) (test code = 2.5 mg/dL 1.6-2.6 627) Case Work Aide ID Marquis KENNEY WB-TYPE NATRIURETIC FACTOR (BNP)2022-07-12 06:45:03 Test Item Value Reference Range Interpretation Comments B-TYPE NATRIURETIC PEPTIDE (BEAKER) 33 pg/mL 0-100 (test code = 700) Case Work Aide ID Marquis KENNEY [id number] 06:38:12 Test Item Value Reference Range Interpretation [...] of thrombosis is within 95-100% range. PROTHROMBIN TIME/[id number] 06:28:19 Test Item Value Reference Range Interpretation Comments PROTIME (BEAKER) (test code = 13.9 seconds 11.9-14.2 759) INR (PIO) (test code = 370) 1.09 <=5.90 RECOMMENDED COUMADIN/WARFARIN INR THERAPY RANGESSTANDARD DOSE: 2.0 - 3.0 Includes: PROPHYLAXIS for venous thrombosis, systemic embolization; TREATMENT for venous thrombosis and/or pulmonary embolus.HIGH RISK: Target INR is 2.5-3.5 for patients with mechanical heart valves.POCT-GLUCOSE [id number] 06:10:03 Test Item Value Reference Range Interpretation Comments POC-GLUCOSE METER 97 mg/dL 70-110 : TESTED A T [facility] 6720 (PIO) (test code = CHRISTAL Alanis ENG [place], 1538) 42230: Case Work Aide/Techni santosh ID = [id number] for Jackie Sousa COMP. METABOLIC PANEL (46671)2022-07-11 11:58:27 Test Item Value Reference Range Interpretation Comments NA (test code = 138 mmol/L 135-145 0982449657) K (test code = 4.5 mmol/L 3.5-5.0 Slight hemoly sis 1160043674) CL (test code = 101 mmol/L 98-108 2548725361) CO2 TOTAL (test 23 mmol/L 23-31 code = 1664962749) AGAP (test code = 14 2-16 7898560050) BUN (test code = 14 mg/dL 7-23 Slight hemo lysis 4349958750) GLUCOSE (test code 94 mg/dL 70-110 = 3484579520) CREATININE (test 0.67 mg/dL 0.60-1.25 code = 5591903457) TOTAL BILI (test 0.6 mg/dL 0.1-1.1 code = 3752229544) CALCIUM (test code 9.0 mg/dL 8.6-10.6 = 7124347254) T PROTEIN (test 7.2 g/dL 6.3-8.2 code = 2514070540) ALBUMIN (test code 4.5 g/dL 3.5-5.0 = 5217867888) ALK PHOS (test 88 U/L 34-122 Slight hemoly sis code = 7171122768) ALTv (test code = 31 U/L 5-50 1742-6) AST(SGOT) (test 40 U/L 13-40 Slight hemol ysis code = 0258385891) eGFR (test code = 121.4 mL/min/1.73m2 8662040246) DEWAYNE (test code = Association of DEWAYNE) [...] or urine or abnormalities in imaging tests). [facility] WITH [id number] 11:18:00 Test Item Value Reference Range Interpretation Comments WBC (test code = 7.15 See_Comment [Automated 2592-2) message] The sy stem which generated this result transmitted reference range : 4.20 - 10.70 10*3/?L. The reference range was not used to interpret this result as normal/abnormal . RBC (test code = 3.45 See_Comment L [Automated 832-3) message] The sy stem which generated this [...] (test code = 53.9 fL 38.5-51.6 H 55629-2) RDW-CV (test code = 17.2 % 12.1-15.4 H 788-0) PLT (test code = 400 See_Comment H [Automated 777-3) message] The sy stem which generated this result transmitted reference range : 150 - 328 10*3/ ?L. The reference r mitra was not used to interpret this result as normal/abnormal . MPV (test code = 8.8 fL 9.8-13.0 L 80810-9) NRBC/100 WBC (test 0.0 See_Comment [Automat ed code = 8562791847) message] The system which generated this result transmitted reference range : 0.0 - 10.0 /100 WBCs. The refer ence range was not u sed to interpret th is result as normal/abnormal . NRBC x10^3 (test code See_Comment [Auto mated = 6056826502) message] The s ystem which generated this result transmitted reference range : 10*3/?L. The reference range was not used to interpret this result as normal/abnormal . GRAN MAT (NEUT) % 71.5 % (test code = 770-8) IMM GRAN % (test code 0.40 % = 1459208367) LYMPH % (test code = 17.6 % 736-9) MONO % (test code = 7.4 % 5905-5) EOS % (test code = 1.8 % 713-8) BASO % (test code = 1.3 % 706-2) GRAN MAT x10^3(ANC) 5.11 10*3/uL 1.99-6.95 (test code = 0266045542) IMM GRAN x10^3 (test 0.03 10*3/uL 0.00-0.06 code = 2954217468) LYMPH x10^3 (test code 1.26 10*3/uL 1.09-3.23 = 731-0) MONO x10^3 (test code 0.53 10*3/uL 0.36-1.02 = 742-7) EOS x10^3 (test code = 0.13 10*3/uL 0.06-0.53 711-2) BASO x10^3 (test code 0.09 10*3/uL 0.01-0.09 = 704-7) Lab Interpretation Abnormal (test code = 19932-2) [facility]11 09:27:00 Test Item Value Reference Range Interpretation Comments POCT GLU (test code = 8724095336) 95 mg/dL 70-110 Lab Interpretation (test code = Normal 82141-7) [facility]. METABOLIC PANEL (40418)2022-07-05 13:14:57 Test Item Value Reference Range Interpretation Comments NA (test code = 137 mmol/L 135-145 8353642130) K (test code = 4.2 mmol/L 3.5-5.0 8887126463) CL (test code = 100 mmol/L 98-108 2789936967) CO2 TOTAL (test code = 24 mmol/L 23-31 9473950624) AGAP (test code = 13 2-16 0925601516) BUN (test code = 11 mg/dL 7-23 7039534821) GLUCOSE (test code = 124 mg/dL 70-110 H 1659207677) CREATININE (test code = 0.81 mg/dL 0.60-1.25 1232890835) TOTAL BILI (test code = 0.6 mg/dL 0.1-1.4 6361171819) CALCIUM (test code = 9.1 mg/dL 8.6-10.6 6848462433) T PROTEIN (test code = 7.0 g/dL 6.3-8.2 3795099463) ALBUMIN (test code = 4.3 g/dL 3.5-5.0 4178524926) ALK PHOS (test code = 103 U/L 34-122 8606957369) ALTv (test code = 28 U/L 1742-6) AST(SGOT) (test code = 39 U/L 13-40 2315514141) eGFR (test code = 97.5 mL/min/1.73m2 6459283092) DEWAYNE (test code = DEWAYNE) Association of [...] tests). Lab Interpretation Abnormal (test code = 70901-5) [facility] [id number] 12:25:35 Test Item Value Reference Range Interpretation Comments NT-proBNP (test code = 523 pg/mL <=125 H 6741065914) DEWAYNE (test code = DEWAYNE) Biotin has been reported to cause a negative bias, interpret results relative to patient's use of biotin. Lab Interpretation (test Abnormal code = 60853-3) [facility] [id number] 12:25:35 Test Item Value Reference Range Interpretation Comments TROPONIN I (test code = 0.009 ng/mL <=0.034 3796568901) DEWAYNE (test code = DEWAYNE) Reference (Normal) [...] biotin. Lab Interpretation Normal (test code = 56795-0) [facility] WITH [id number] 12:01:31 Test Item Value Reference Range Interpretation Comments WBC (test code = 7.09 See_Comment [Automated 2590-2) message] The sy stem which generated this [...] (test code = 52.8 fL 38.5-51.6 H 64187-1) RDW-CV (test code = 16.1 % 12.1-15.4 H 788-0) PLT (test code = 436 See_Comment H [Automated 627-3) message] The sy stem which generated this result transmitted reference range : 150 - 328 10*3/ ?L. The reference r mitra was not used to interpret this result as normal/abnormal . MPV (test code = 8.9 fL 9.8-13.0 L 45863-5) NRBC/100 WBC (test 0.3 See_Comment [Automat ed code = 8781832768) message] The system which generated this result transmitted reference range : 0.0 - 10.0 /100 WBCs. The refer ence range was not u sed to interpret th is result as normal/abnormal . NRBC x10^3 (test code 0.02 See_Comment [Auto mated = 4477539192) message] The s ystem which generated this result transmitted reference range : 10*3/?L. The reference range was not used to interpret this result as normal/abnormal . GRAN MAT (NEUT) % 69.0 % (test code = 770-8) IMM GRAN % (test code 0.40 % = 7012496064) LYMPH % (test code = 16.1 % 736-9) MONO % (test code = 12.7 % 5905-5) EOS % (test code = 0.8 % 713-8) BASO % (test code = 1.0 % 706-2) GRAN MAT x10^3(ANC) 4.89 10*3/uL 1.99-6.95 (test code = 7547157155) IMM GRAN x10^3 (test 0.03 10*3/uL 0.00-0.06 code = 1489491035) LYMPH x10^3 (test code 1.14 10*3/uL 1.09-3.23 = 731-0) MONO x10^3 (test code 0.90 10*3/uL 0.36-1.02 = 742-7) EOS x10^3 (test code = 0.06 10*3/uL 0.06-0.53 711-2) BASO x10^3 (test code 0.07 10*3/uL 0.01-0.09 = 704-7) Lab Interpretation Abnormal (test code = 59099-0) [facility] CenterSERCALIPATRIANIN RELEASE [id number] 14:13:16 Test Item Value Reference Range Interpretation Comments SCAN RESULT (test code = 3015510) UFH LOW DOSE 0.1 (2) See [facility] nned report. (PIO) (test code = 2593) See scanned reportU/S, RENAL, [id number] 17:23:00Reason for exam:->hydronephrosis [facility]O [facility] : 1960 Sex: MFINAL REPORT [...] 06/23/2022 17:23:41 CBC W/PLT COUNT & AUTO [id number] 05:58:22 Test Item Value Reference Range Interpretation Comments WHITE BLOOD CELL COUNT (PIO) 4.5 K/ L 3.5-10.5 (test code = [...] (BEAKER) (test code = 2801) U/S, ABDOMINAL, [id number] 16:48:00Abdomen limited area? Add comment if clarification is needed.->Right upper quadrantReason for exam:->elevated Tbili - please evaluate [facility] : 1960 Sex: MFINAL REPORT [...] right upper quadrant ultrasound. Signed: Jm Baeza MDReport Verified Date/Time: 6:48:01 SERUM [id number] 16:04:04 Test Item Value Reference Range Interpretation Comments IMMUNOGLOBULIN A (IGA) 146 mg/dL 63-484 (BEAKER) (test code = 639) IMMUNOGLOBULIN G (IGG) 704 mg/dL 540-1822 (BEAKER) (test code = 427) IMMUNOGLOBULIN M (IGM) 72 mg/dL 22-293 (BEAKER) (test code = 638) SERUM IT ID 6144(BEAKER) No monoclonal (test code = 3817) protein detected. [facility]-PATHOLOGIST-"[id number] Axel Lawler, " (BEAKER) (test code = M.D. 9394) Clinical Garment Patternmaker - SFOperator ID - ADMINPROTEIN ELECTROPHORESIS, SERUM WITH REFLEX TO [id number] 16:03:41 Test Item Value Reference Range Interpretation [...] (test code = increased. 2615) Non-specific change. [id number] Axel Lawler, (BEAKER) (test code = M.D. 2616) PROTEIN TOTAL SERUM, 6.6 gm/dL 6.0-8.3 SPEP (BEAKER) (test code = 2660) Clinical Garment Patternmaker - SFOperator ID - ADMINOperator ID - ADMHEPARIN ANTIBODY 2022-06-22 12:12:51 Test Item Value Reference Range Interpretation Comments HEPARIN ANTIBODY Positive-See Serotonin Negative A (BEAKER) (test code = Release Assay for 646) Confirmation HEPARIN ANTIBODY OD 3.000 <0.400 H (BEAKER) (test code = 2659) 4T TOTAL SCORE 5 (BEAKER) (test code = 2661) [id number] 05:50:16 Test Item Value Reference Range Interpretation Comments HAPTOGLOBIN (BEAKER) (test code = 308 mg/dL 14-258 H 366) Case Work Aide ID - ADMINOperator ID - ADMINVITAMIN [id number] 05:20:33 Test Item Value Reference Range Interpretation Comments VITAMIN B12 (BEAKER) (test code = 359 pg/mL 213-816 774) Case Work Aide ID - [id number] 05:20:33 Test Item Value Reference Range Interpretation Comments FERRITIN (BEAKER) (test code = 415.83 ng/mL 5.00-275.00 H 361) Case Work Aide ID - DOMINIQUE, TIBC, % SAT. (WITHOUT FERRITIN)2022-06-22 04:59:45 Test Item Value Reference Range Interpretation Comments IRON (BEAKER) (test code = 547) 38.0 ug/dL 40.0-160.0 L TOTAL IRON BINDING CAPACITY 311 ug/dL 250-450 (BEAKER) (test code = 769) IRON % SATURATION (2) (BEAKER) 12 % 20-55 L (test code = 2590) Case Work Aide ID - JAYDAORETICULOCYTE [id number] 04:53:40 Test Item Value Reference Range Interpretation Comments RETICULOCYTE COUNT PCT (BEAKER) (test 5.7 % 0.5-1.8 H code = 575) Case Work Aide ID - [id number] W/PLT COUNT & AUTO [id number] 04:53:36 Test Item Value Reference Range Interpretation [...] (BEAKER) (test code = 2801) HEPATIC FUNCTION [id number] 04:48:30 Test Item Value Reference Range Interpretation [...] (test code = 19 U/L 6-55 347) Case Work Aide ID - ADMINLACTATE DEHYDROGENASE (LDH)2022-06-22 04:48:30 Test Item Value Reference Range Interpretation Comments LACTATE DEHYDROGENASE (BEAKER) (test 271 U/L 125-220 H code = 635) Case Work Aide ID - ADMINBASIC METABOLIC [id number] 04:48:29 Test Item Value Reference Range Interpretation [...] high >=90 G2 Mildly decreased 60-89 G3a Mild ly to moderately 45-5 9 G3b Moderately to [...] not appl icable for dialysis patien ts Case Work Aide ID - [id number] 04:48:29 Test Item Value Reference Range Interpretation Comments MAGNESIUM (BEAKER) (test code = 2.2 mg/dL 1.6-2.6 627) Case Work Aide ID - ADMINCOMPREHENSIVE METABOLIC [id number] 13:27:13 Test Item Value Reference Range Interpretation [...] not appl icable for dialysis patien ts Case Work Aide ID - JSCBC W/PLT COUNT & AUTO [id number] 13:14:04 Test Item Value Reference Range Interpretation [...] PERCENT (BEAKER) (test code = 2801) PROTHROMBIN TIME/[id number] 13:13:03 Test Item Value Reference Range Interpretation Comments PROTIME (BEAKER) (test code = 15.2 seconds 11.9-14.2 H 759) INR (BEAKER) (test code = 370) 1.28 <=5.90 RECOMMENDED COUMADIN/WARFARIN INR THERAPY RANGESSTANDARD DOSE: 2.0 - 3.0 Includes: PROPHYLAXIS for venous thrombosis, systemic embolization; TREATMENT for venous thrombosis and/or pulmonary embolus.HIGH RISK: Target INR is 2.5-3.5 for patients with mechanical heart valves.SARS-CoV2/RT-PCR ([facility]) 2022-06-21 13:03:14 Test Item Value Reference Interpretation Comments Range SARS-COV2/RT-PCR Negative Negative The SARS-Co V-2 (test code = target nucleic 83838-9) acids are not detected in thi s [...] om SARS-CoV-2 in a nasopharyngeal swab specimen collec elizabeth from individual s suspected of COVID-19 [...] revoked sooner. Fact Sheet for Healthcare Providers: https://www.[employer]/Documents/Xp ert%20Xpress%20SAR S%20CoV-2/Fact%20S heets/3023802%20S ARS-COV-2%20HEALTH CARE%20PROVIDERS%2 0FACT%20SHEET.pdf Fact Sheet for Healthcare Patients: https://www.[employer]/Documents/Xp ert%20Xpress%20SAR S%20CoV-2/Fact%20S heets/3023801%20S ARS-COV-2%20PATIEN T%20FACT%20SHEET.p df Lab Interpretation Normal (test code = 12097-5) [facility]2022-06-21 13:03:14 Test Item Value Reference Interpretation Comments Range SARS-COV2/RT-PCR Negative Negative The SARS-Co V-2 (test code = target nucleic 53537-4) acids are not detected in thi s [...] om SARS-CoV-2 in a nasopharyngeal swab specimen collec elizabeth from individual s suspected of COVID-19 [...] revoked sooner. Fact Sheet for Healthcare Providers: https://www.[employer]/Documents/Xp ert%20Xpress%20SAR S%20CoV-2/Fact%20S heets/3023802%20S ARS-COV-2%20HEALTH CARE%20PROVIDERS%2 0FACT%20SHEET.pdf Fact Sheet for Healthcare Patients: https://www.[employer]/Documents/Xp ert%20Xpress%20SAR S%20CoV-2/Fact%20S heets/3023801%20S ARS-COV-2%20PATIEN T%20FACT%20SHEET.p df Lab Interpretation Normal (test code = 17498-3) [facility])2022-06-21 13:03:14 Test Item Value Reference Range Interpretation Comments SARS-COV2/RT-PCR Negative Negative The SARS-Co V-2 target (test code = nucleic acids a re not 6577340) detected in thi s specimen. Negative result [...] revoked sooner. Fact Sheet for Healthcare Providers: https://www.[employer] m/Documents/Xpert%20Xpress%20SARS%20CoV-2/Fact%20Sheets/3023802%05XAKM-CUN-6%20 HEALTHCARE%20PROVIDERS%20FACT%20SHEET.pdf Fact Sheet for Healthcare Patients: https://www.[employer]/Documents/Xpert%20Xp ress%20SARS%20CoV-2/Fact%20Sheets/3023801%20SUPH-SBP-4%20PATIENT%20FACT%20SHEET .pdfSURGICAL PATHOLOGY [id number] 19:37:37 Test Item Value Reference Range Interpretation Comments Case Report (test code Surgical Pathology ? ? = [id number]) ?Case: [id number] ? Authorizing Provider: ?Lawrence Peterson, ?Collected: ? 06/03/2022 1042 ?Ordering Location: ? ? [facility] OR ? Received: ?06/03/2022 1154 ? Department ? Pathologist: ? Tatyana Monroe, ? MD PhD ? Specimen: ? ?OTHER, IVC FOREIGN BODY ? Final Diagnosis (test y5hayXUuTWVur9zjRDHgfA code = 6362191852) FuZzEwMzNcZnRuYmpcdWMx IHtccnRmMVxlcGljMTAyMD XgKM7awAotaUm6sSjxBQGj cdL1uKZcEExsy9pqHJL6y7 lgfnkxVKFpVHxjSz8yiLJv nBsgQwPdVCIzGJu1zA11RU DxuS6xpDAxODa5BAEwfXLf lnVcMgOsFBAtiBEgvOX8BE TjNI7bpkmtNSxkOWqhKENh ilO2MSAsrIJaH6FjTDNhYM 3rlvnjMCJ9GAkfRGUvJQK4 CdTjXJObt9Dbrwp1OpLunO FyZFxwbGFpblxmczIwXHBh ciBBLiBIRUFSVCwgUkVNT1 ZBTCBPRiBJTkZFUklPUiBW QG0GXNOCQvScYx2IPUfAHf DNY0LZOrNfxASyJXToLHKi NW2YVZSGAMhMDF5EZRsWGO jcTNXWSFGCLZEATkCAZ1AM TcCkI9mAOTWNBqGAWdiKDx TJHS1FNWYLOcPpCnqDXQMU TCbuLFCuLNKpOIPqU3Ldm5 SdSBxxgVnhTGAke97wu16g dVkhd6RuFSnmt7NyPNYhl6 KorBM9eR4nHD5iOWIkvzDb JZEcIZRAAHJlR36IHNUDYN 0xwYQajChujiKeUVzvi4Fe O6QlFzRaPTrifwRyBFJpWo sdyzmxNPGvUDU2cuEjNXNx ZLogEMFzRErnAe7kfZAdbC fgVqCrCZHdv8wznuIBVYuc CdGmR041ZEFaRUzet7sxp1 WwMOXwjGZsp9S0WTDBrkvb xFu5w4piFvGxRvW3wWJwRP udF6lnuyEhjPKaS1ZelOPi wXm1hJnhT54om5P4TiiuQ8 kiBJGcMFDcD2ZeXW5zMBVx Nxw6YZD9AZP6MVPhQLNaS7 DwDF9eBTRchNLdGPo3q6bx uLsjGDRdEVM1n2fwHEwtng U2BJ5bdc0yoWa2m8pttgVh AWYnBSScuQCSRMWbJ0VpnM txYh8nhJf6aWqxIezcDUP5 Hyr8LM0lwc71rtm9gLyzCF UmkbpiSqW9WRcsCVXbbddh RKx8CCrzXDXglIH7LSNfiZ JtW3PkMKVfHP6plns4WSG6 RWbvJEUsQtC6OEDxhOPzAC AjuGfaPAvhm592EOC5FeKq EF7mP7Obb8F5mJ9xzJKjQA HqtCLaRwLzKPXxbg0vwYEd IJcnh9ZeKJK5jwF0sAHdfZ YnGJKiBK85Ibtmz8ZnRuwb XVS6FUSmbxEzt7Mjs0tqQs WmyaSsM8rxD1ReIRVwSZYc VUAqTtCdqxUit2Fvl5CarH NkxIs1q0knUIWiKZIszPop c9kcJNT8RLVgZ4J2lOKty6 bbNDgnRZMjsWI4uaQ6CBIn yKTbH4LghF9qIDRnST8yeb c8z1hdOZA8RHkiNGObTpF0 ubG3SXDitTBkZPHepQblTH ekj464LCE9RvDtNRJmu3Bt D3IeuUaaC46ixZhrS63pZD BxlRfgmZ9qmPpuwL6sIvNt ZnMyNFxxbFxwbGFpblxmMV xmczIwXGxhbmcxMDMzXGhp E1zrCpLwEBNonUbpIVxyg7 NoXGYxXGNmMlxmczIwXHBh ihNSXAkwkhPgqFCyq42yWG xseSByZXZpZXdlZCBhbGwg y6ZcU8snLM9dC5OytMMdsy JehvIbBGhtCMGct7u9sQGs qXmnv0BdhZYjUA01lvDvCZ JcDLZ8JIKoq9unYX12fjnt DyViqH76ioTvopHgAZAun7 isI7zhjJSlo4Uib4WrtwHb BGmwv8ZcPI7wcKJrkxnrdT I1LJTkrGOjvnXqmzT2aIsi TFVwwS3yzN0ieLntfZ9dWt HdKaQkAMsbRY6yDJZlN7kl nHYqFVJjXYYvR5orXdPfuX 4zgSyfQihimjW2MYBoyr80 Final Diagnosis Comment l5bfvTLzIZOnjPGtXYVtNd (test code = hdyvNmXWRsqKDyO1Uhimaa [id number]) BLrlZB0mFN9goJadgNVioO AtJMYrPnUsq6zqc252yZWp e0aaCBTCfrtyjIy7yDcwX7 2gk5C0QnxsF3znVRZ1ATof rtAppfJfGRFgtEJ9FLkbfg XwUaQ8HWygPNMqDaA8IJSn vXSfHUU0hVuhUOIaxqbaSw W5HUnzJFJklnqnCJo9CCwl IZUnbXS2UMDqqXWmM0PzBX IkZK8gzhe9OAC2LJcgTSMz EzN8GEQfpEWeBWQfgVseKG mzo184BBE1NmSoJJVzuhYy uKmsfC4xGdExWAxcHqGmZ7 hjYnBhdDJccGFyIFRoZSBh Eq67TMXtmOZrrZ6lnnHzgL P1YBUiKUFuSAB2SutzV2Vb YAQ5mpSaft8gsmBpiBCnlI 3ddWiicuVfmdl3QRB5rSKb MMErpuXoakCco5Y4UPKuj6 M4GVDak5BpgPfzsb6rC99d rACjULMeaXMiyTrpzd6kZV YgdGhlIHNwZWNpbWVuIGlz SO0bEFWuFWEvi5Bqc8KcTB SxicFtd67mdxuadCntBCHs QMBzbhNyJ1PmkYhoKLClq6 ZiuFT3aV5rp1lsr8JxILPc cn0= Clinical Information Acute deep vein (test code = thrombosis (DVT) of 0855316844) iliac vein of both lower extremities [I82.423] Gross Description (test m1rlcKIsXHZigPIdBWBuPx code = 0938432085) rrrqVsZDFhoYTmL5Sxguyo VUvuOF1rTL4eaRfliUGmqR GrGRUfOrQtl7hfh273zQNa l4isXNDMjdbaoBe8fHqwS2 7hc2R3OxcdT71izFLsMIU1 XWTwYUSlbZDsAHYxCUD5IO LtgNCpM7trYYPsDP9cqyaz UNtyUGfdJPAumXU5FQFzfH NeE2BnYNWdYAzfEQFdtkj1 YrNbTz2izFDeuXdvWShfFp lilAicp6PlyRJzYFkdTTCt TJQtPDucUPJbR6HXQEBvAj x3OAEcAKDsIsVTCDW3WpI4 XMSkLQTBNKUqXZvbCCR2Um kyIiBMUlIgODAwMDAwMDAw OQEuGA5iUKdefGIkLOmcUq dvHQyxW502HBwcAFPcY2Fx Y1JmNJojAHZ5LYHoCoTcEJ HaFL2ZVsTnNZZ0FNSyQaKn QSj9QVx8KL3MErChCYQvFi L3FfTrRJNmRAs3LInxXM7J JZM8MTHhUmv4EMmdEXM4YE FmUAn7JFBaWPrnqdHsXWmj HjbrUQvkM54brQKwBLcpyK FpblxmczIwIFNQRUNJTUVO ABVxmEAgUYRgdvZty2EiHM wijQmoEHWiNeAovOgmtS5r SsEeXKACyGDypX2qcdQCFO lmAIYpF5NxohGhKXYdVNDy IGxhYmVsbGVkIHdpdGggdG jhJNMqqJwgjwEyI6X2aaHe QH3zQBZMZMZebI0uXOUsPM UmLUYHOETujhPmB49gPk4d pRybEgBiQ6U5LVRoUMYlf1 9orFB3zrYjTbKgGW1vvDHk vGueAR30nFRgnGVwtfqxPG UpCYZhN2YxVULwhzvyUANs EX54JLtrDp0mLYibRA01GZ BwPTpgX9Kqs5VmgTHlk00v xUM3GD36NPjosCweIB2blH 9dSAXdx5SwzrYoMBBbLMLq ZLRjyWJick1aPBdjf0AmLM 2vBXdtTUytfAqztE3rhfJc iLKfLOWwDFKmi5JpXmZBqF Skq2ZjR6smMO4irBRpFe6h SLcuf2UoQZB7DG4rxeR1gG 1eXF4nxBuqOWulDSGulWEu ZFxmczIyXHBhclxzYTMwXG BqfKAKx5KjWWHKxOsgSFGE S2mqiBQrBRmbXEZLUYuQS5 GBCOpfPCLxA2XiA8EqkqD7 w0yauAuor3HsvKQvOF9crH FyfQ== Disclaimer (test code = m8wjhFQoUXRwg6amFSPmfK 5161420595) FuZzEwMzNcZnRuYmpcdWMx RGezfcBdVMuyd7ObC7LpLe AwMFxhbnNpXGRlZmxhbmcx FGFfXGZ0hhRqGSRiLMigLO CfGKtzTu5gxVOyrMraJqVm HEJob9sxtnVVKAvjPkUuB1 12AEYmKIdew3gaw8AbXAKv nVRvj6O6HHSGmxbtyBi4qC rhJ86jm3B0UzjcO5yoWYNn DWQxB2LkPN5hZLFoXcx6TX M0AIM5SPVrJIHtR5XtWX5v COLkpNVzWLh8j2heiPbcUA NySZL8k7tmDImrvmRiUE3g zx9ziWr7s6huaxWgYBQxNT LxrCVBTBWsR8VwoHdeBy4d jPa7cFhiTgkqHFY8Hmm1XC 7xha55wbe5iXvkHKSyayit PoE3ZYobAOGceaicSEm9HJ ndDNLoaBY7LBBnyXEiM8Fj CULlIA4gato2WEB5LPwhPT DaBkD5UBYfxEKtAPEtyKqb ABtzq507ZOE8ZoUpFI9zE1 Omv6F3oX3qfZWzYNAtsMJd VsZlOXKsfj4yuWQgUBnys8 VwXEY9cnT9zLGscIJpEOUw QH58Dmnal0OsSttin2CeB4 4qbSK0WTkkt9iiTV3nYrC1 zxWvOZrau3axzJ4uMgO7YS tdJK4eMH2pBRDbhV0gsfds XHBnYnJkcmhlYWRccGdicm ZnAj8mcFqhEDP5WNatV8yy bF4lDcL9NZoqJ9njvZ3kCT d5SEtqsCU3KSBjeB1dLZ3w hesws4ckBHamDHtjCJIudg G3tkD1HUWaxJYsT3XtlB6q GUCrQR8inuebx2elCTY4TN rfAILiFFS9FtUhNOXeo3Yf dec8MhRcv9RgeWNlYGauH3 8nc980LCXjmwScC1wkmKLu jcelqBKmpkcwRDxdszG7AI FwzqIbj7ZrXYIvEEI5IUgw BTdftIAaLZFymEnqe2doB4 RscGFyXHBsYWluXGYxXGZz MjBcbGFuZzEwMzNcaGljaF syFZqtEdHeYHEdXMxjM5uc UtFwM3KqKQMhDaUuqLCpI5 ggVGhpcyByZXBvcnQgbWF5 NOgvH6y0DZGcxgIrwUa3gj AtBdGyHPYeFBL5DOqppNDk CSDiz1KuzqpbfPIfZu3ifY LuKBNcxI7gJIMtPQPsFLyz KO8ujCs7LUBElAAxpFRuRa NBIAGbEY40miBiQABYcfgf f7G7GXcuOTCoz2NkmHPuO9 qxe1EiMMSgd28eAK1pk5B1 m1hbGKE7SO6ft5IpWPVktR AmiNIhOKWpz2Vxdvmwl8Ne FVNngwJlg2GtTZZmgyNrxL UiPKUgjoOjib0riiKhHRKl VBQhZ1NvxaiuoXcblxAwAC Fhtu4wrvFqLDV0KJRDTVNj LWUhd8WfsX8kxQMWGWV4jR Qxiv9ejsCItWGgQVDpfu47 YAKhGM6eL4neHDIeKZZqsx HjoFEmf8QiTAEfjOB5zYQh KI3YTmNKa82rQNIsUBHUey XnHBTogVvcsHB7oqN0xN5z IChGREEpLlx+IFRoZSBGRE FuJJ9ibbEhj9XictPgzOjh JCJqrIBza2NtsOPsp8IapX ees5JakOBomPBiWQ9jLVSe clxwYXIgVVRNQiBMYWJvcm D3x6WjHYNrFNYgFUK6gMox vlx3MJFbeX1qYFHjU2gcne jsZSecJXBlg0CryV2spSRK aEYoo7BnzVUgmRFKrZXsMU 5dauCqWCoEHXgADNA5kkAv LOZrp8InNWgiM1mmN83qvS ojkSd0dDD9GBK9iK5kVuk+ IFxwYXJccGFyIEFwcHJvcH XrXQVejOnvrtHmV1LegdAt sN3ycLLxcbDqZZ8nJZ6bM0 Y7bKHzIEVzcvXne1dfERlm dmUgYmVlbiByZXZpZXdlZC Pzs6DaBDxwUZW2TNxywjOw bmNsdWRpbmcgSCZFLCBTcG RejVImVYJ7YOylbgNibkPw TO6naN6foUtdvE2geSDooM R1jwnhDESsUYIkbIdvVWGy TC7wwFYyZUGyzaTCdBubbF FpnI8sQ4XfVAXoDUYmdq5k TDFwmZ3bUWvqc9AscolxMP BiTJRvVYOlpuIduo0qTIHr fIUYNU4OHTcstPDkw9Aakc TcY4pBLAF9EREsFhPqGgac HWUegUIdnVKsOVOtet93KH LfsU6zsDbwSYTgmY7kgK4b uEuneV7wPrPkMmHoVKqaIQ 2yARHnW3lngACoMVShTXDe Y4bzHpApxK5foZbkUKgtFa TyUeRzTIqjVES0tM== Embedded Images (test code = 4337634792) [facility] METABOLIC PANEL (NA, K, CL, CO2, GLUCOSE, BUN, CREATININE, CA)2022-06-07 09:52:38 Test Item Value Reference Range Interpretation Comments NA (test code = 135 mmol/L 135-145 5828873305) K (test code = 4.0 mmol/L 3.5-5.0 9746718612) CL (test code = 104 mmol/L 98-108 3069092399) CO2 TOTAL (test code = 25 mmol/L 23-31 3671626130) AGAP (test code = 6 2-16 5959141021) BUN (test code = 16 mg/dL 7-23 5652255056) GLUCOSE (test code = 144 mg/dL 70-110 H 9054718326) CREATININE (test code = 1.10 mg/dL 0.60-1.25 4403629164) CALCIUM (test code = 8.4 mg/dL 8.6-10.6 L 2466920262) eGFR (test code = 68.5 mL/min/1.73m2 2633515676) DEWAYNE (test code = DEWAYNE) Association of [...] tests). Lab Interpretation Abnormal (test code = 46823-9) [facility] Test Item Value Reference Range Interpretation Comments MAGNESIUM (test code = 2847667851) 2.5 mg/dL 1.7-2.4 H Lab Interpretation (test code = Abnormal 60223-7) [facility] 09:52[facility]38 Test Item Value Reference Range Interpretation Comments PHOSPHORUS (test code = 7821837172) 3.9 mg/dL 2.5-5.0 Lab Interpretation (test code = Normal 61968-3) [facility] WITH [id number] 12:15:07 Test Item Value Reference Range Interpretation Comments WBC (test code = 6.35 See_Comment [Automated 0690-2) message] The sy stem which generated this result transmitted reference range : 4.20 - 10.70 10*3/?L. The reference range was not used to interpret this result as normal/abnormal . RBC (test code = 2.65 See_Comment L [Automated 289-8) message] The sy [...] RDW-SD (test code = 51.5 fL 38.5-51.6 80638-1) RDW-CV (test code = 15.9 % 12.1-15.4 H 788-0) PLT (test code = 115 See_Comment L [Automated 777-3) message] The sy stem which generated this result transmitted reference range : 150 - 328 10*3/ ?L. The reference r mitra was not used to interpret this result as normal/abnormal . MPV (test code = 9.9 fL 9.8-13.0 18366-7) IPF % (test code = 2.9 % 1.2-10.7 Platelet count [id number]) measured by fluorescence method. NRBC/100 WBC (test 0.3 See_Comment [Automat ed code = 0242107433) message] The system which generated this result transmitted reference range : 0.0 - 10.0 /100 WBCs. The refer ence range was not u sed to interpret th is result as normal/abnormal . NRBC x10^3 (test code 0.02 See_Comment [Auto mated = 4697587177) message] The s ystem which generated this result transmitted reference range : 10*3/?L. The reference range was not used to interpret this result as normal/abnormal . GRAN MAT (NEUT) % 60.5 % (test code = 770-8) IMM GRAN % (test code 1.70 % = 8750279494) LYMPH % (test code = 24.7 % 736-9) MONO % (test code = 8.7 % 5905-5) EOS % (test code = 3.9 % 713-8) BASO % (test code = 0.5 % 706-2) GRAN MAT x10^3(ANC) 3.84 10*3/uL 1.99-6.95 (test code = 5671167587) IMM GRAN x10^3 (test 0.11 10*3/uL 0.00-0.06 H code = 8481075051) LYMPH x10^3 (test code 1.57 10*3/uL 1.09-3.23 = 731-0) MONO x10^3 (test code 0.55 10*3/uL 0.36-1.02 = 742-7) EOS x10^3 (test code = 0.25 10*3/uL 0.06-0.53 711-2) BASO x10^3 (test code 0.03 10*3/uL 0.01-0.09 = 704-7) Lab Interpretation Abnormal (test code = 56671-0) [facility] WITH [id number] 12:15:07 Test Item Value Reference Range Interpretation [...] RDW-SD (test code = 51.5 fL 38.5-51.6 85374-9) RDW-CV (test code = 15.9 % 12.1-15.4 H 788-0) PLT (test code = 115 See_Comment L [Automated 777-3) message] The sy stem which generated this result transmitted reference range : 150 - 328 10*3/ ?L. The reference r mitra was not used to interpret this result as normal/abnormal . MPV (test code = 9.9 fL 9.8-13.0 73444-7) IPF % (test code = 2.9 % 1.2-10.7 Platelet count 3388035243) measured by fluorescence method. NRBC/100 WBC (test 0.3 See_Comment [Automat ed code = 8475471869) message] The system which generated this result transmitted reference range : 0.0 - 10.0 /100 WBCs. The refer ence range was not u sed to interpret th is result as normal/abnormal . NRBC x10^3 (test code 0.02 See_Comment [Auto mated = 1234410795) message] The s ystem which generated this result transmitted reference range : 10*3/?L. The reference range was not used to interpret this result as normal/abnormal . GRAN MAT (NEUT) % 60.5 % (test code = 770-8) IMM GRAN % (test code 1.70 % = 5004538101) LYMPH % (test code = 24.7 % 736-9) MONO % (test code = 8.7 % 5905-5) EOS % (test code = 3.9 % 713-8) BASO % (test code = 0.5 % 706-2) GRAN MAT x10^3(ANC) 3.84 10*3/uL 1.99-6.95 (test code = 1909797405) IMM GRAN x10^3 (test 0.11 10*3/uL 0.00-0.06 H code = 0160033898) LYMPH x10^3 (test code 1.57 10*3/uL 1.09-3.23 = 731-0) MONO x10^3 (test code 0.55 10*3/uL 0.36-1.02 = 742-7) EOS x10^3 (test code = 0.25 10*3/uL 0.06-0.53 711-2) BASO x10^3 (test code 0.03 10*3/uL 0.01-0.09 = 704-7) Lab Interpretation Abnormal (test code = 79770-5) [facility] Test Item Value Reference Range Interpretation Comments MAGNESIUM (test code = 8292528260) 2.4 mg/dL 1.7-2.4 Lab Interpretation (test code = Normal 30326-1) [facility]01 Test Item Value Reference Range Interpretation Comments PHOSPHORUS (test code = 1418296830) 4.1 mg/dL 2.5-5.0 Lab Interpretation (test code = Normal 74990-8) [facility] (NA, K, CL, CO2, GLUCOSE, BUN, CREATININE, CA)2022-06-05 11:43:01 Test Item Value Reference Range Interpretation Comments NA (test code = 137 mmol/L 135-145 5905733540) K (test code = 3.8 mmol/L 3.5-5.0 8595970358) CL (test code = 105 mmol/L 98-108 1904169492) CO2 TOTAL (test code = 28 mmol/L 23-31 9574081545) AGAP (test code = 4 2-16 0197219827) BUN (test code = 17 mg/dL 7-23 3063472442) GLUCOSE (test code = 86 mg/dL 70-110 6924055484) CREATININE (test code = 1.06 mg/dL 0.60-1.25 8189319386) CALCIUM (test code = 8.4 mg/dL 8.6-10.6 L 9046910057) eGFR (test code = 71.5 mL/min/1.73m2 6756095651) DEWAYNE (test code = DEWAYNE) Association of [...] tests). Lab Interpretation Abnormal (test code = 54915-7) [facility] 11:43:01 Test Item Value Reference Range Interpretation Comments MAGNESIUM (test code = 4529976051) 2.4 mg/dL 1.7-2.4 Lab Interpretation (test code = Normal 09064-9) [facility] 11:43:01 Test Item Value Reference Range Interpretation Comments PHOSPHORUS (test code = 8205245895) 4.1 mg/dL 2.5-5.0 Lab Interpretation (test code = Normal 20503-3) [facility] (NA, K, CL, CO2, GLUCOSE, BUN, CREATININE, CA)2022-06-05 11:43:01 Test Item Value Reference Range Interpretation Comments NA (test code = 137 mmol/L 135-145 7517718950) K (test code = 3.8 mmol/L 3.5-5.0 2303513839) CL (test code = 105 mmol/L 98-108 4632018025) CO2 TOTAL (test code = 28 mmol/L 23-31 1772124593) AGAP (test code = 4 2-16 1763973446) BUN (test code = 17 mg/dL 7-23 9476189644) GLUCOSE (test code = 86 mg/dL 70-110 1083801246) CREATININE (test code = 1.06 mg/dL 0.60-1.25 0255837076) CALCIUM (test code = 8.4 mg/dL 8.6-10.6 L 6652671159) eGFR (test code = 71.5 mL/min/1.73m2 5903510469) DEWAYNE (test code = DEWAYNE) Association of [...] tests). Lab Interpretation Abnormal (test code = 96711-0) [facility] (ALB,T.PRO,BILI T,BU/BC,ALT,AST,ALK PHOS)2022-06-04 08:25:57 Test Item Value Reference Range Interpretation Comments TOTAL BILI (test code = 6324454314) 0.7 mg/dL 0.1-1.1 BILI UNCON (test code = 8891954242) 0.3 mg/dL 0.1-1.1 BILI CONJ (test code = 0876077448) 0.0 mg/dL 0.0-0.3 T PROTEIN (test code = 6824929376) 6.4 g/dL 6.3-8.2 ALBUMIN (test code = 8666741725) 3.7 g/dL 3.5-5.0 ALK PHOS (test code = 0017746014) 105 U/L 34-122 ALTv (test code = 1742-6) 71 U/L 5-50 H AST(SGOT) (test code = 0513695601) 51 U/L 13-40 H Lab Interpretation (test code = Abnormal 14610-1) [facility] (ALB,T.PRO,BILI T,BU/BC,ALT,AST,ALK PHOS)2022-06-04 08:25:57 Test Item Value Reference Range Interpretation Comments TOTAL BILI (test code = 9453120675) 0.7 mg/dL 0.1-1.1 BILI UNCON (test code = 3258008346) 0.3 mg/dL 0.1-1.1 BILI CONJ (test code = 0580622544) 0.0 mg/dL 0.0-0.3 T PROTEIN (test code = 8729693090) 6.4 g/dL 6.3-8.2 ALBUMIN (test code = 7053974443) 3.7 g/dL 3.5-5.0 ALK PHOS (test code = 6945581445) 105 U/L 34-122 ALTv (test code = 1742-6) 71 U/L 5-50 H AST(SGOT) (test code = 5209055639) 51 U/L 13-40 H Lab Interpretation (test code = Abnormal 48838-8) [id number]14[facility]08 Test Item Value Reference Range Interpretation Comments TROPONIN I (test code = 0.027 ng/mL <=0.034 3820920161) DEWAYNE (test code = DEWAYNE) Reference (Normal) [...] biotin. Lab Interpretation Normal (test code = 44887-0) [facility] [id number] 06:14:08 Test Item Value Reference Range Interpretation Comments TROPONIN I (test code = 0.027 ng/mL <=0.034 8889028874) DEWAYNE (test code = DEWAYNE) Reference (Normal) [...] biotin. Lab Interpretation Normal (test code = 89847-6) [facility] WITH [id number] 05:33:25 Test Item Value Reference Range Interpretation Comments WBC (test code = 9.78 See_Comment [Automated 5841-2) message] The sy stem which generated this result transmitted reference range : 4.20 - 10.70 10*3/?L. The reference range was not used to interpret this result as normal/abnormal . RBC (test code = 2.85 See_Comment L [Automated 695-8) message] The sy stem which generated this [...] RDW-SD (test code = 50.4 fL 38.5-51.6 65765-0) RDW-CV (test code = 15.9 % 12.1-15.4 H 788-0) PLT (test code = 121 See_Comment L [Automated 777-3) message] The sy stem which generated this result transmitted reference range : 150 - 328 10*3/ ?L. The reference r mitra was not used to interpret this result as normal/abnormal . MPV (test code = 8.7 fL 9.8-13.0 L 40324-9) IPF % (test code = 2.3 % 1.2-10.7 Platelet count 8828898134) measured by fluorescence method. NRBC/100 WBC (test 0.6 See_Comment [Automat ed code = 5989748417) message] The system which generated this result transmitted reference range : 0.0 - 10.0 /100 WBCs. The refer ence range was not u sed to interpret th is result as normal/abnormal . NRBC x10^3 (test code 0.06 See_Comment [Auto mated = 2525558043) message] The s ystem which generated this result transmitted reference range : 10*3/?L. The reference range was not used to interpret this result as normal/abnormal . GRAN MAT (NEUT) % 80.9 % (test code = 770-8) IMM GRAN % (test code 4.80 % = 9597710745) LYMPH % (test code = 8.6 % 736-9) MONO % (test code = 5.6 % 5905-5) EOS % (test code = 0.0 % 713-8) BASO % (test code = 0.1 % 706-2) GRAN MAT x10^3(ANC) 7.91 10*3/uL 1.99-6.95 H (test code = 6801697879) IMM GRAN x10^3 (test 0.47 10*3/uL 0.00-0.06 H code = 5296977200) LYMPH x10^3 (test code 0.84 10*3/uL 1.09-3.23 L = 731-0) MONO x10^3 (test code 0.55 10*3/uL 0.36-1.02 = 742-7) EOS x10^3 (test code = 0.06-0.53 L 711-2) BASO x10^3 (test code 0.01-0.09 = 704-7) Lab Interpretation Abnormal (test code = 63603-2) [facility] WITH [id number] 05:33:25 Test Item Value Reference Range Interpretation [...] RDW-SD (test code = 50.4 fL 38.5-51.6 78173-1) RDW-CV (test code = 15.9 % 12.1-15.4 H 788-0) PLT (test code = 121 See_Comment L [Automated 777-3) message] The sy stem which generated this result transmitted reference range : 150 - 328 10*3/ ?L. The reference r mitra was not used to interpret this result as normal/abnormal . MPV (test code = 8.7 fL 9.8-13.0 L 20861-3) IPF % (test code = 2.3 % 1.2-10.7 Platelet count 5353099378) measured by fluorescence method. NRBC/100 WBC (test 0.6 See_Comment [Automat ed code = 3964436841) message] The system which generated this result transmitted reference range : 0.0 - 10.0 /100 WBCs. The refer ence range was not u sed to interpret th is result as normal/abnormal . NRBC x10^3 (test code 0.06 See_Comment [Auto mated = 7880558182) message] The s ystem which generated this result transmitted reference range : 10*3/?L. The reference range was not used to interpret this result as normal/abnormal . GRAN MAT (NEUT) % 80.9 % (test code = 770-8) IMM GRAN % (test code 4.80 % = 3294275864) LYMPH % (test code = 8.6 % 736-9) MONO % (test code = 5.6 % 5905-5) EOS % (test code = 0.0 % 713-8) BASO % (test code = 0.1 % 706-2) GRAN MAT x10^3(ANC) 7.91 10*3/uL 1.99-6.95 H (test code = 1025543484) IMM GRAN x10^3 (test 0.47 10*3/uL 0.00-0.06 H code = 6463723709) LYMPH x10^3 (test code 0.84 10*3/uL 1.09-3.23 L = 731-0) MONO x10^3 (test code 0.55 10*3/uL 0.36-1.02 = 742-7) EOS x10^3 (test code = 0.06-0.53 L 711-2) BASO x10^3 (test code 0.01-0.09 = 704-7) Lab Interpretation Abnormal (test code = 80842-2) [facility] (NA, K, CL, CO2, GLUCOSE, BUN, CREATININE, CA)2022-06-04 05:32:04 Test Item Value Reference Range Interpretation Comments NA (test code = 136 mmol/L 135-145 1987836843) K (test code = 4.1 mmol/L 3.5-5.0 4795811458) CL (test code = 104 mmol/L 98-108 1984050526) CO2 TOTAL (test code = 25 mmol/L 23- 4667143056) AGAP (test code = 7 2-16 5876475214) BUN (test code = 19 mg/dL - 8128676878) GLUCOSE (test code = 166 mg/dL 70-110 H 8511200863) CREATININE (test code = 1.00 mg/dL 0.60-1.25 2917824363) CALCIUM (test code = 8.8 mg/dL 8.6-10.6 4496336198) eGFR (test code = 76.5 mL/min/1.73m2 8980234364) DEWAYNE (test code = DEWAYNE) Association of [...] tests). Lab Interpretation Abnormal (test code = 82581-7) [facility] METABOLIC PANEL (NA, K, CL, CO2, GLUCOSE, BUN, CREATININE, CA)2022-06-04 05:32:04 Test Item Value Reference Range Interpretation Comments NA (test code = 136 mmol/L 135-145 0869187818) K (test code = 4.1 mmol/L 3.5-5.0 5585931972) CL (test code = 104 mmol/L 98-108 1063318035) CO2 TOTAL (test code = 25 mmol/L 23-31 1189940147) AGAP (test code = 7 2-16 8712526728) BUN (test code = 19 mg/dL 7-23 0701444216) GLUCOSE (test code = 166 mg/dL 70-110 H 7278920526) CREATININE (test code = 1.00 mg/dL 0.60-1.25 2281800983) CALCIUM (test code = 8.8 mg/dL 8.6-10.6 3602487348) eGFR (test code = 76.5 mL/min/1.73m2 7674747984) DEWAYNE (test code = DEWAYNE) Association of [...] tests). Lab Interpretation Abnormal (test code = 72001-7) [facility] (for use with Heparin Drip)2022-06-04 05:24:43 Test Item Value Reference Range Interpretation Comments APTT Patient (test code 105 See_Comment [Au tomated message] = 3173-2) The system Cognea generated this result transmitted ref erence range: 26 - 36 Seconds. The reference range was not used to int erpret this result as normal/abnormal . Lab Interpretation (test Abnormal code = 07355-2) [facility] (for use with Heparin Drip)2022-06-04 05:24:43 Test Item Value Reference Range Interpretation Comments APTT Patient (test code 105 See_Comment [Au tomated message] = 3173-2) The system Cognea generated this result transmitted ref erence range: 26 - 36 Seconds. The reference range was not used to int erpret this result as normal/abnormal . Lab Interpretation (test Abnormal code = 91747-3) [facility] 02:57:07 Test Item Value Reference Range Interpretation Comments PH (test code = 2) 7.31 7.35-7.45 L PCO2 (test code = 42 See_Comment [Automate d message] [id number]) The system Cognea generated this result transmit elizabeth reference range : 35 - 45 mmHg. The reference range was not used to interpret this result as normal/abnormal . PO2 (test code = 144 See_Comment H [Automated message] 0527384529) The system Cog[employer] generated this result transmit elizabeth reference range : 80 - 100 mmHg. The reference range was not used to interpret this result as normal/abnormal . HCO3 (test code = 21 See_Comment L [Automate d message] 2975113236) The system C[employer] generated this result transmit elizabeth reference range : 22 - 26 mEq/L. The reference range was not used to interpret this result as normal/abnormal . BE (test code = -4.8 See_Comment L [Automated message] 4960624418) The system Cog[employer] generated this result transmit elizabeth reference range : -3.0 - 3.0 mEq/ L. The reference r mitra was not used to interpret this result as normal/abnormal . THB (test code = 9.6 g/dL 13.5-18.0 L 4453103622) %O2HB (test code = 98.4 % 94.0-99.0 1307121943) %COHB ART (test code = 0.1 % 0.0-1.5 7722188443) %METHB ART (test code = 0.1 % 0.4-1.5 L 3809186421) VOL%O2 ART (test code = 13.6 % 15.0-23.0 L QUES 5566474474) NA (test code = 133 mmol/L 135-145 L 0206636213) K+ (test code = 4.6 mmol/L 3.5-5.0 3972956722) AC CA IONZ (test code = 4.40 mg/dL 4.50-5.30 L 3778377181) GLUCOSE (test code = 148 mg/dL 70-110 H 2320904540) Lab Interpretation Abnormal (test code = 67837-4) [facility] 02:57:07 Test Item Value Reference Range Interpretation Comments PH (test code = 2) 7.31 7.35-7.45 L PCO2 (test code = 42 See_Comment [Automate d message] 3653875380) The system Cognea generated this result transmit elizabeth reference range : 35 - 45 mmHg. The reference range was not used to interpret this result as normal/abnormal . PO2 (test code = 144 See_Comment H [Automated message] 0728585465) The system Cog[employer] generated this result transmit elizabeth reference range : 80 - 100 mmHg. The reference range was not used to interpret this result as normal/abnormal . HCO3 (test code = 21 See_Comment L [Automate d message] 5306928355) The system Cog[employer] generated this result transmit elizabeth reference range : 22 - 26 mEq/L. The reference range was not used to interpret this result as normal/abnormal . BE (test code = -4.8 See_Comment L [Automated message] 2550774156) The system Cog[employer] generated this result transmit elizabeth reference range : -3.0 - 3.0 mEq/ L. The reference r mitra was not used to interpret this result as normal/abnormal . THB (test code = 9.6 g/dL 13.5-18.0 L 9685919371) %O2HB (test code = 98.4 % 94.0-99.0 2838247721) %COHB ART (test code = 0.1 % 0.0-1.5 0683075419) %METHB ART (test code = 0.1 % 0.4-1.5 L 6918389012) VOL%O2 ART (test code = 13.6 % 15.0-23.0 L QUES 6051197532) NA (test code = 133 mmol/L 135-145 L 2931352077) K+ (test code = 4.6 mmol/L 3.5-5.0 4562250500) AC CA IONZ (test code = 4.40 mg/dL 4.50-5.30 L 1181541614) GLUCOSE (test code = 148 mg/dL 70-110 H 3021351186) Lab Interpretation Abnormal (test code = 50698-5) [facility] 02:55:52 Test Item Value Reference Range Interpretation Comments PH (test code = 2) 7.31 7.35-7.45 L PCO2 (test code = 38 See_Comment [Automate d message] 7165555581) The system Cognea generated this result transmit elizabeth reference range : 35 - 45 mmHg. The reference range was not used to interpret this result as normal/abnormal . PO2 (test code = 180 See_Comment H [Automated message] 4627784324) The system Cognea generated this result transmit elizabeth reference range : 80 - 100 mmHg. The reference range was not used to interpret this result as normal/abnormal . HCO3 (test code = 19 See_Comment L [Automate d message] 7117951039) The system Cog[employer] generated this result transmit elizabeth reference range : 22 - 26 mEq/L. The reference range was not used to interpret this result as normal/abnormal . BE (test code = -7.2 See_Comment L [Automated message] 0129449467) The system Cognea generated this result transmit elizabeth reference range : -3.0 - 3.0 mEq/ L. The reference r mitra was not used to interpret this result as normal/abnormal . THB (test code = 8.4 g/dL 13.5-18.0 L 7448454110) %O2HB (test code = 98.1 % 94.0-99.0 6640418244) %COHB ART (test code = 0.4 % 0.0-1.5 9476800072) %METHB ART (test code = 0.3 % 0.4-1.5 L 3224766569) VOL%O2 ART (test code = 12.0 % 15.0-23.0 L QUES 4860985121) NA (test code = 135 mmol/L 135-145 4256326150) K+ (test code = 4.1 mmol/L 3.5-5.0 4202124186) AC CA IONZ (test code = 4.90 mg/dL 4.50-5.30 8206750732) GLUCOSE (test code = 128 mg/dL 70-110 H 2366146367) Lab Interpretation Abnormal (test code = 73940-4) [facility]-04 02:55:52 Test Item Value Reference Range Interpretation Comments PH (test code = 2) 7.31 7.35-7.45 L PCO2 (test code = 38 See_Comment [Automate d message] 8245141615) The system Cognea generated this result transmit elizabeth reference range : 35 - 45 mmHg. The reference range was not used to interpret this result as normal/abnormal . PO2 (test code = 180 See_Comment H [Automated message] 9532860382) The system Cog[employer] generated this result transmit elizabeth reference range : 80 - 100 mmHg. The reference range was not used to interpret this result as normal/abnormal . HCO3 (test code = 19 See_Comment L [Automate d message] 4504640662) The system Cognea generated this result transmit elizabeth reference range : 22 - 26 mEq/L. The reference range was not used to interpret this result as normal/abnormal . BE (test code = -7.2 See_Comment L [Automated message] 8035601702) The system Cognea generated this result transmit elizabeth reference range : -3.0 - 3.0 mEq/ L. The reference r mitra was not used to interpret this result as normal/abnormal . THB (test code = 8.4 g/dL 13.5-18.0 L 6979754753) %O2HB (test code = 98.1 % 94.0-99.0 8516003758) %COHB ART (test code = 0.4 % 0.0-1.5 3660413840) %METHB ART (test code = 0.3 % 0.4-1.5 L 4831145450) VOL%O2 ART (test code = 12.0 % 15.0-23.0 L QUES 9819064609) NA (test code = 135 mmol/L 135-145 2583530589) K+ (test code = 4.1 mmol/L 3.5-5.0 8325106548) AC CA IONZ (test code = 4.90 mg/dL 4.50-5.30 3780401693) GLUCOSE (test code = 128 mg/dL 70-110 H 5359537171) Lab Interpretation Abnormal (test code = 37340-5) [facility] Solfqby9925-79-01 13:22:00 Test Item Value Reference Range Interpretation Comments ABO & RH (test code = 20) AB POSITIVE IAT (test code = 1185) Negative [facility] Leewszg4779-03-05 13:22:00 Test Item Value Reference Range Interpretation Comments ABO & RH (test code = 20) AB POSITIVE IAT (test code = 1185) Negative [facility] [id number] 11:35:29 Test Item Value Reference Range Interpretation Comments WBC (test code = 11.02 See_Comment H [Automated 0337-2) message] The sy stem which generated this result transmitted reference range : 4.20 - 10.70 10*3/?L. The reference range was not used to interpret this result as normal/abnormal . RBC (test code = 3.21 See_Comment L [Automated 264-8) message] The sy stem which generated this [...] RDW-SD (test code = 50.8 fL 38.5-51.6 86968-7) RDW-CV (test code = 15.9 % 12.1-15.4 H 788-0) PLT (test code = 265 See_Comment [Automated 777-3) message] The sy stem which generated this result transmitted reference range : 150 - 328 10*3/ ?L. The reference r mitra was not used to interpret this result as normal/abnormal . MPV (test code = 9.0 fL 9.8-13.0 L 55870-9) NRBC/100 WBC (test 0.5 See_Comment [Automat ed code = 3928516782) message] The system which generated this result transmitted reference range : 0.0 - 10.0 /100 WBCs. The refer ence range was not u sed to interpret th is result as normal/abnormal . NRBC x10^3 (test code 0.06 See_Comment [Auto mated = 9202690188) message] The s ystem which generated this result transmitted reference range : 10*3/?L. The reference range was not used to interpret this result as normal/abnormal . GRAN MAT (NEUT) % 67.4 % (test code = 770-8) IMM GRAN % (test code 5.90 % = 1132047227) LYMPH % (test code = 13.6 % 736-9) MONO % (test code = 8.5 % 5905-5) EOS % (test code = 4.1 % 713-8) BASO % (test code = 0.5 % 706-2) GRAN MAT x10^3(ANC) 7.42 10*3/uL 1.99-6.95 H (test code = 5678542528) IMM GRAN x10^3 (test 0.65 10*3/uL 0.00-0.06 H code = 0227516778) LYMPH x10^3 (test code 1.50 10*3/uL 1.09-3.23 = 731-0) MONO x10^3 (test code 0.94 10*3/uL 0.36-1.02 = 742-7) EOS x10^3 (test code = 0.45 10*3/uL 0.06-0.53 711-2) BASO x10^3 (test code 0.06 10*3/uL 0.01-0.09 = 704-7) Lab Interpretation Abnormal (test code = 65546-8) [facility] WITH [id number] 11:35:29 Test Item Value Reference Range Interpretation Comments WBC (test code = 11.02 See_Comment H [Automated 1490-2) message] The sy stem which [...] RDW-SD (test code = 50.8 fL 38.5-51.6 05102-5) RDW-CV (test code = 15.9 % 12.1-15.4 H 788-0) PLT (test code = 265 See_Comment [Automated 777-3) message] The sy stem which generated this result transmitted reference range : 150 - 328 10*3/ ?L. The reference r mitra was not used to interpret this result as normal/abnormal . MPV (test code = 9.0 fL 9.8-13.0 L 60279-4) NRBC/100 WBC (test 0.5 See_Comment [Automat ed code = 0915526130) message] The system which generated this result transmitted reference range : 0.0 - 10.0 /100 WBCs. The refer ence range was not u sed to interpret th is result as normal/abnormal . NRBC x10^3 (test code 0.06 See_Comment [Auto mated = 7724131934) message] The s ystem which generated this result transmitted reference range : 10*3/?L. The reference range was not used to interpret this result as normal/abnormal . GRAN MAT (NEUT) % 67.4 % (test code = 770-8) IMM GRAN % (test code 5.90 % = 3492504194) LYMPH % (test code = 13.6 % 736-9) MONO % (test code = 8.5 % 5905-5) EOS % (test code = 4.1 % 713-8) BASO % (test code = 0.5 % 706-2) GRAN MAT x10^3(ANC) 7.42 10*3/uL 1.99-6.95 H (test code = 9221979022) IMM GRAN x10^3 (test 0.65 10*3/uL 0.00-0.06 H code = 5443928408) LYMPH x10^3 (test code 1.50 10*3/uL 1.09-3.23 = 731-0) MONO x10^3 (test code 0.94 10*3/uL 0.36-1.02 = 742-7) EOS x10^3 (test code = 0.45 10*3/uL 0.06-0.53 711-2) BASO x10^3 (test code 0.06 10*3/uL 0.01-0.09 = 704-7) Lab Interpretation Abnormal (test code = 35239-0) [facility] 11:30:46 Test Item Value Reference Range Interpretation Comments MAGNESIUM (test code = 0230891394) 2.4 mg/dL 1.7-2.4 Lab Interpretation (test code = Normal 64760-4) [facility] 11:30:46 Test Item Value Reference Range Interpretation Comments PHOSPHORUS (test code = 1315312085) 4.8 mg/dL 2.5-5.0 Lab Interpretation (test code = Normal 26797-6) [facility] METABOLIC PANEL (NA, K, CL, CO2, GLUCOSE, BUN, CREATININE, CA)2022-06-03 11:30:46 Test Item Value Reference Range Interpretation Comments NA (test code = 136 mmol/L 135-145 4061684465) K (test code = 4.2 mmol/L 3.5-5.0 4860419691) CL (test code = 104 mmol/L 98-108 5005781419) CO2 TOTAL (test code 26 mmol/L 23-31 = 7119059988) AGAP (test code = 6 2-16 4700011365) BUN (test code = 18 mg/dL 7-23 2007439500) GLUCOSE (test code = 103 mg/dL 70-110 7645018138) CREATININE (test code 1.08 mg/dL 0.60-1.25 = 2349782090) CALCIUM (test code = 8.7 mg/dL 8.6-10.6 4933717488) eGFR (test code = 70.0 mL/min/1.73m2 3570336134) DEWAYNE (test code = DEWAYNE) Association of [...] or urine or abnormalities in imaging tests). [facility] 11:30:46 Test Item Value Reference Range Interpretation Comments MAGNESIUM (test code = 9520225317) 2.4 mg/dL 1.7-2.4 Lab Interpretation (test code = Normal 08085-3) [facility] 11:30:46 Test Item Value Reference Range Interpretation Comments PHOSPHORUS (test code = 6778456117) 4.8 mg/dL 2.5-5.0 Lab Interpretation (test code = Normal 64535-8) [facility] (NA, K, CL, CO2, GLUCOSE, BUN, CREATININE, CA)2022-06-03 11:30:46 Test Item Value Reference Range Interpretation Comments NA (test code = 136 mmol/L 135-145 5561981453) K (test code = 4.2 mmol/L 3.5-5.0 1241508159) CL (test code = 104 mmol/L 98-108 5730669747) CO2 TOTAL (test code 26 mmol/L 23-31 = 5532682234) AGAP (test code = 6 2-16 5824400496) BUN (test code = 18 mg/dL 7-23 9204995318) GLUCOSE (test code = 103 mg/dL 70-110 4300251915) CREATININE (test code 1.08 mg/dL 0.60-1.25 = 7057891605) CALCIUM (test code = 8.7 mg/dL 8.6-10.6 9979886403) eGFR (test code = 70.0 mL/min/1.73m2 3490973162) DEWAYNE (test code = DEWAYNE) Association of [...] or urine or abnormalities in imaging tests). [facility]2022-06-03 11:15:05 Test Item Value Reference Range Interpretation Comments APTT Patient (test code 52 See_Comment H [Au tomated message] = 3173-2) The system Cognea generated this result transmitted ref erence range: 26 - 36 Seconds. The reference range was not used to int erpret this result as normal/abnormal . Lab Interpretation (test Abnormal code = 91847-8) [facility] use with Heparin Drip[facility]2022-06-03 11:15:05 Test Item Value Reference Range Interpretation Comments APTT Patient (test code 52 See_Comment H [Au tomated message] = 3173-2) The system Cognea generated this result transmitted ref erence range: 26 - 36 Seconds. The reference range was not used to int erpret this result as normal/abnormal . Lab Interpretation (test Abnormal code = 57660-1) [facility] METABOLIC PANEL (NA, K, CL, CO2, GLUCOSE, BUN, CREATININE, CA)2022-06-02 13:56:04 Test Item Value Reference Range Interpretation Comments NA (test code = 137 mmol/L 135-145 8736040934) K (test code = 4.4 mmol/L 3.5-5.0 8726767872) CL (test code = 105 mmol/L 98-108 7127085881) CO2 TOTAL (test code 27 mmol/L 23-31 = 0838511741) AGAP (test code = 5 2-16 4076283934) BUN (test code = 19 mg/dL 7-23 0654570282) GLUCOSE (test code = 92 mg/dL 70-110 8155225914) CREATININE (test code 0.96 mg/dL 0.60-1.25 = 6659890926) CALCIUM (test code = 8.7 mg/dL 8.6-10.6 7023426150) eGFR (test code = 80.2 mL/min/1.73m2 5434602265) DEWAYNE (test code = DEWAYNE) Association of [...] or urine or abnormalities in imaging tests). [facility] METABOLIC PANEL (NA, K, CL, CO2, GLUCOSE, BUN, CREATININE, CA)2022-06-02 13:56:04 Test Item Value Reference Range Interpretation Comments NA (test code = 137 mmol/L 135-145 6541253348) K (test code = 4.4 mmol/L 3.5-5.0 5889093292) CL (test code = 105 mmol/L 98-108 8880193328) CO2 TOTAL (test code 27 mmol/L 23-31 = 8036841278) AGAP (test code = 5 2-16 2422662916) BUN (test code = 19 mg/dL 7-23 7843499050) GLUCOSE (test code = 92 mg/dL 70-110 4914425923) CREATININE (test code 0.96 mg/dL 0.60-1.25 = 3597112157) CALCIUM (test code = 8.7 mg/dL 8.6-10.6 0860544691) eGFR (test code = 80.2 mL/min/1.73m2 3221961987) DEWAYNE (test code = DEWAYNE) Association of [...] or urine or abnormalities in imaging tests). [facility] WITH [id number] 11:30:12 Test Item Value Reference Range Interpretation Comments WBC (test code = 8.75 See_Comment [Automated 7290-2) message] The sy stem which generated this [...] RDW-SD (test code = 50.1 fL 38.5-51.6 55018-8) RDW-CV (test code = 15.8 % 12.1-15.4 H 788-0) PLT (test code = 239 See_Comment [Automated 777-3) message] The sy stem which generated this result transmitted reference range : 150 - 328 10*3/ ?L. The reference r mitra was not used to interpret this result as normal/abnormal . MPV (test code = 9.1 fL 9.8-13.0 L 66155-7) NRBC/100 WBC (test 0.8 See_Comment [Automat ed code = 7102010563) message] The system which generated this result transmitted reference range : 0.0 - 10.0 /100 WBCs. The refer ence range was not u sed to interpret th is result as normal/abnormal . NRBC x10^3 (test code 0.07 See_Comment [Auto mated = 8427522951) message] The s ystem which generated this result transmitted reference range : 10*3/?L. The reference range was not used to interpret this result as normal/abnormal . GRAN MAT (NEUT) % 56.4 % (test code = 770-8) IMM GRAN % (test code 6.70 % = 9236702234) LYMPH % (test code = 23.9 % 736-9) MONO % (test code = 7.3 % 5905-5) EOS % (test code = 4.9 % 713-8) BASO % (test code = 0.8 % 706-2) GRAN MAT x10^3(ANC) 4.93 10*3/uL 1.99-6.95 (test code = 5540676910) IMM GRAN x10^3 (test 0.59 10*3/uL 0.00-0.06 H code = 8778449799) LYMPH x10^3 (test code 2.09 10*3/uL 1.09-3.23 = 731-0) MONO x10^3 (test code 0.64 10*3/uL 0.36-1.02 = 742-7) EOS x10^3 (test code = 0.43 10*3/uL 0.06-0.53 711-2) BASO x10^3 (test code 0.07 10*3/uL 0.01-0.09 = 704-7) Lab Interpretation Abnormal (test code = 80491-2) [facility] WITH [id number] 11:30:12 Test Item Value Reference Range Interpretation Comments WBC (test code = 8.75 See_Comment [Automated 7490-2) message] The sy stem which generated this [...] RDW-SD (test code = 50.1 fL 38.5-51.6 45432-2) RDW-CV (test code = 15.8 % 12.1-15.4 H 788-0) PLT (test code = 239 See_Comment [Automated 777-3) message] The sy stem which generated this result transmitted reference range : 150 - 328 10*3/ ?L. The reference r mitra was not used to interpret this result as normal/abnormal . MPV (test code = 9.1 fL 9.8-13.0 L 39622-0) NRBC/100 WBC (test 0.8 See_Comment [Automat ed code = 6681961182) message] The system which generated this result transmitted reference range : 0.0 - 10.0 /100 WBCs. The refer ence range was not u sed to interpret th is result as normal/abnormal . NRBC x10^3 (test code 0.07 See_Comment [Auto mated = 1736874173) message] The s ystem which generated this result transmitted reference range : 10*3/?L. The reference range was not used to interpret this result as normal/abnormal . GRAN MAT (NEUT) % 56.4 % (test code = 770-8) IMM GRAN % (test code 6.70 % = 4181589962) LYMPH % (test code = 23.9 % 736-9) MONO % (test code = 7.3 % 5905-5) EOS % (test code = 4.9 % 713-8) BASO % (test code = 0.8 % 706-2) GRAN MAT x10^3(ANC) 4.93 10*3/uL 1.99-6.95 (test code = 0337746984) IMM GRAN x10^3 (test 0.59 10*3/uL 0.00-0.06 H code = 6840447031) LYMPH x10^3 (test code 2.09 10*3/uL 1.09-3.23 = 731-0) MONO x10^3 (test code 0.64 10*3/uL 0.36-1.02 = 742-7) EOS x10^3 (test code = 0.43 10*3/uL 0.06-0.53 711-2) BASO x10^3 (test code 0.07 10*3/uL 0.01-0.09 = 704-7) Lab Interpretation Abnormal (test code = 39228-9) [facility] Test Item Value Reference Range Interpretation Comments MAGNESIUM (test code = 3713402151) 2.3 mg/dL 1.7-2.4 Lab Interpretation (test code = Normal 83040-1) [facility] 11:16:48 Test Item Value Reference Range Interpretation Comments PHOSPHORUS (test code = 4075751482) 4.8 mg/dL 2.5-5.0 Lab Interpretation (test code = Normal 05067-9) [facility] 11:16:48 Test Item Value Reference Range Interpretation Comments MAGNESIUM (test code = 8727891117) 2.3 mg/dL 1.7-2.4 Lab Interpretation (test code = Normal 89185-4) [facility] 11:16:48 Test Item Value Reference Range Interpretation Comments PHOSPHORUS (test code = 8005877829) 4.8 mg/dL 2.5-5.0 Lab Interpretation (test code = Normal 87332-7) [facility] WITH [id number] 11:58:20 Test Item Value Reference Range Interpretation [...] RDW-SD (test code = 48.3 fL 38.5-51.6 10791-9) RDW-CV (test code = 15.2 % 12.1-15.4 788-0) PLT (test code = 181 See_Comment [Automated 777-3) message] The sy stem which generated this result transmitted reference range : 150 - 328 10*3/ ?L. The reference r mitra was not used to interpret this result as normal/abnormal . MPV (test code = 9.4 fL 9.8-13.0 L 61448-7) NRBC/100 WBC (test 0.3 See_Comment [Automat ed code = 6433769720) message] The system which generated this result transmitted reference range : 0.0 - 10.0 /100 WBCs. The refer ence range was not u sed to interpret th is result as normal/abnormal . NRBC x10^3 (test code 0.03 See_Comment [Auto mated = 2434257213) message] The s ystem which generated this result transmitted reference range : 10*3/?L. The reference range was not used to interpret this result as normal/abnormal . GRAN MAT (NEUT) % 59.7 % (test code = 770-8) IMM GRAN % (test code 5.80 % = 7018971002) LYMPH % (test code = 21.3 % 736-9) MONO % (test code = 8.7 % 5905-5) EOS % (test code = 4.1 % 713-8) BASO % (test code = 0.4 % 706-2) GRAN MAT x10^3(ANC) 5.49 10*3/uL 1.99-6.95 (test code = 8390804514) IMM GRAN x10^3 (test 0.53 10*3/uL 0.00-0.06 H code = 6492678763) LYMPH x10^3 (test code 1.96 10*3/uL 1.09-3.23 = 731-0) MONO x10^3 (test code 0.80 10*3/uL 0.36-1.02 = 742-7) EOS x10^3 (test code = 0.38 10*3/uL 0.06-0.53 711-2) BASO x10^3 (test code 0.04 10*3/uL 0.01-0.09 = 704-7) Lab Interpretation Abnormal (test code = 32450-3) [facility] WITH [id number] 11:58:20 Test Item Value Reference Range Interpretation [...] RDW-SD (test code = 48.3 fL 38.5-51.6 07777-6) RDW-CV (test code = 15.2 % 12.1-15.4 788-0) PLT (test code = 181 See_Comment [Automated 777-3) message] The sy stem which generated this result transmitted reference range : 150 - 328 10*3/ ?L. The reference r mitra was not used to interpret this result as normal/abnormal . MPV (test code = 9.4 fL 9.8-13.0 L 13737-9) NRBC/100 WBC (test 0.3 See_Comment [Automat ed code = 5816698073) message] The system which generated this result transmitted reference range : 0.0 - 10.0 /100 WBCs. The refer ence range was not u sed to interpret th is result as normal/abnormal . NRBC x10^3 (test code 0.03 See_Comment [Auto mated = 1831897365) message] The s ystem which generated this result transmitted reference range : 10*3/?L. The reference range was not used to interpret this result as normal/abnormal . GRAN MAT (NEUT) % 59.7 % (test code = 770-8) IMM GRAN % (test code 5.80 % = 7302492603) LYMPH % (test code = 21.3 % 736-9) MONO % (test code = 8.7 % 5905-5) EOS % (test code = 4.1 % 713-8) BASO % (test code = 0.4 % 706-2) GRAN MAT x10^3(ANC) 5.49 10*3/uL 1.99-6.95 (test code = 5783685750) IMM GRAN x10^3 (test 0.53 10*3/uL 0.00-0.06 H code = 2736041717) LYMPH x10^3 (test code 1.96 10*3/uL 1.09-3.23 = 731-0) MONO x10^3 (test code 0.80 10*3/uL 0.36-1.02 = 742-7) EOS x10^3 (test code = 0.38 10*3/uL 0.06-0.53 711-2) BASO x10^3 (test code 0.04 10*3/uL 0.01-0.09 = 704-7) Lab Interpretation Abnormal (test code = 58114-4) [facility] Test Item Value Reference Range Interpretation Comments MAGNESIUM (test code = [id number]) 2.3 mg/dL 1.7-2.4 Lab Interpretation (test code = Normal 09665-8) [facility] Test Item Value Reference Range Interpretation Comments PHOSPHORUS (test code = [id number]) 3.4 mg/dL 2.5-5.0 Lab Interpretation (test code = Normal 88313-1) [facility] (NA, K, CL, CO2, GLUCOSE, BUN, CREATININE, CA)2022-06-01 11:41:55 Test Item Value Reference Range Interpretation Comments NA (test code = 137 mmol/L 135-145 3293515111) K (test code = 4.1 mmol/L 3.5-5.0 4116183617) CL (test code = 105 mmol/L 98-108 7182991431) CO2 TOTAL (test code = 27 mmol/L 23-31 1353838476) AGAP (test code = 5 2-16 6961038048) BUN (test code = 17 mg/dL 7-23 5844044169) GLUCOSE (test code = 135 mg/dL 70-110 H 8505993508) CREATININE (test code = 0.84 mg/dL 0.60-1.25 5047049837) CALCIUM (test code = 8.4 mg/dL 8.6-10.6 L 5465399206) eGFR (test code = 93.5 mL/min/1.73m2 7134826420) DEWAYNE (test code = DEWAYNE) Association of [...] tests). Lab Interpretation Abnormal (test code = 43916-5) [facility]55 Test Item Value Reference Range Interpretation Comments MAGNESIUM (test code = 9561704478) 2.3 mg/dL 1.7-2.4 Lab Interpretation (test code = Normal 04195-7) [facility] 11[facility]41:55 Test Item Value Reference Range Interpretation Comments PHOSPHORUS (test code = 5041700006) 3.4 mg/dL 2.5-5.0 Lab Interpretation (test code = Normal 69809-5) [facility] (NA, K, CL, CO2, GLUCOSE, BUN, CREATININE, CA)2022-06-01 11:41:55 Test Item Value Reference Range Interpretation Comments NA (test code = 137 mmol/L 135-145 4667935829) K (test code = 4.1 mmol/L 3.5-5.0 7411240776) CL (test code = 105 mmol/L 98-108 8800795655) CO2 TOTAL (test code = 27 mmol/L 23-31 8178483417) AGAP (test code = 5 2-16 0436541001) BUN (test code = 17 mg/dL 7-23 3201743373) GLUCOSE (test code = 135 mg/dL 70-110 H 2562917931) CREATININE (test code = 0.84 mg/dL 0.60-1.25 3830093325) CALCIUM (test code = 8.4 mg/dL 8.6-10.6 L 1122483583) eGFR (test code = 93.5 mL/min/1.73m2 9231260324) DEWAYNE (test code = DEWAYNE) Association of [...] tests). Lab Interpretation Abnormal (test code = 45986-0) [facility] WITH [id number] 12:02:32 Test Item Value Reference Range Interpretation Comments WBC (test code = 9.82 See_Comment [Automated 4060-2) message] The sy stem which generated this result transmitted reference range : 4.20 - 10.70 10*3/?L. The reference range was not used to interpret this result as normal/abnormal . RBC (test code = 3.82 See_Comment L [Automated 950-8) message] The sy stem which generated this [...] RDW-SD (test code = 46.6 fL 38.5-51.6 48346-3) RDW-CV (test code = 14.9 % 12.1-15.4 788-0) PLT (test code = 154 See_Comment [Automated 777-3) message] The sy stem which generated this result transmitted reference range : 150 - 328 10*3/ ?L. The reference r mitra was not used to interpret this result as normal/abnormal . MPV (test code = 9.5 fL 9.8-13.0 L 64201-2) NRBC/100 WBC (test 0.2 See_Comment [Automat ed code = 9841799409) message] The system which generated this result transmitted reference range : 0.0 - 10.0 /100 WBCs. The refer ence range was not u sed to interpret th is result as normal/abnormal . NRBC x10^3 (test code 0.02 See_Comment [Auto mated = 9122780627) message] The s ystem which generated this result transmitted reference range : 10*3/?L. The reference range was not used to interpret this result as normal/abnormal . GRAN MAT (NEUT) % 80.7 % (test code = 770-8) IMM GRAN % (test code 4.50 % = 8301567337) LYMPH % (test code = 6.5 % 736-9) MONO % (test code = 7.3 % 5905-5) EOS % (test code = 0.6 % 713-8) BASO % (test code = 0.4 % 706-2) GRAN MAT x10^3(ANC) 7.92 10*3/uL 1.99-6.95 H (test code = 7262545234) IMM GRAN x10^3 (test 0.44 10*3/uL 0.00-0.06 H code = 6698586646) LYMPH x10^3 (test code 0.64 10*3/uL 1.09-3.23 L = 731-0) MONO x10^3 (test code 0.72 10*3/uL 0.36-1.02 = 742-7) EOS x10^3 (test code = 0.06 10*3/uL 0.06-0.53 711-2) BASO x10^3 (test code 0.04 10*3/uL 0.01-0.09 = 704-7) MEAGHAN CELLS (test code 2+ See_Comment A [Auto mated = 5165-9) message] The sy stem which generated this result transmitted reference range : (none). The reference range was not used to interpret this result as normal/abnormal . REACT LYMPHS (test Rare code = 6055415274) Lab Interpretation Abnormal (test code = 70512-5) [facility] WITH [id number] 12:02:32 Test Item Value Reference Range Interpretation Comments WBC (test code = 9.82 See_Comment [Automated 3290-2) message] The sy stem which generated this result transmitted reference range : 4.20 - 10.70 10*3/?L. The reference range was not used to interpret this result as normal/abnormal . RBC (test code = 3.82 See_Comment L [Automated 629-8) message] The sy stem which generated this [...] RDW-SD (test code = 46.6 fL 38.5-51.6 72396-8) RDW-CV (test code = 14.9 % 12.1-15.4 788-0) PLT (test code = 154 See_Comment [Automated 777-3) message] The sy stem which generated this result transmitted reference range : 150 - 328 10*3/ ?L. The reference r mitra was not used to interpret this result as normal/abnormal . MPV (test code = 9.5 fL 9.8-13.0 L 11498-3) NRBC/100 WBC (test 0.2 See_Comment [Automat ed code = 9921301050) message] The system which generated this result transmitted reference range : 0.0 - 10.0 /100 WBCs. The refer ence range was not u sed to interpret th is result as normal/abnormal . NRBC x10^3 (test code 0.02 See_Comment [Auto mated = 7701182207) message] The s ystem which generated this result transmitted reference range : 10*3/?L. The reference range was not used to interpret this result as normal/abnormal . GRAN MAT (NEUT) % 80.7 % (test code = 770-8) IMM GRAN % (test code 4.50 % = 6558313745) LYMPH % (test code = 6.5 % 736-9) MONO % (test code = 7.3 % 5905-5) EOS % (test code = 0.6 % 713-8) BASO % (test code = 0.4 % 706-2) GRAN MAT x10^3(ANC) 7.92 10*3/uL 1.99-6.95 H (test code = 4382982137) IMM GRAN x10^3 (test 0.44 10*3/uL 0.00-0.06 H code = 1204037741) LYMPH x10^3 (test code 0.64 10*3/uL 1.09-3.23 L = 731-0) MONO x10^3 (test code 0.72 10*3/uL 0.36-1.02 = 742-7) EOS x10^3 (test code = 0.06 10*3/uL 0.06-0.53 711-2) BASO x10^3 (test code 0.04 10*3/uL 0.01-0.09 = 704-7) MEAGHAN CELLS (test code 2+ See_Comment A [Auto mated = 1978-9) message] The sy stem which generated this result transmitted reference range : (none). The reference range was not used to interpret this result as normal/abnormal . REACT LYMPHS (test Rare code = 8192620833) Lab Interpretation Abnormal (test code = 67440-7) [facility] WITH [id number] 12:02:32 Test Item Value Reference Range Interpretation Comments WBC (test code = 9.82 See_Comment [Automated 0790-2) message] The sy stem [...] RDW-SD (test code = 46.6 fL 38.5-51.6 59640-0) RDW-CV (test code = 14.9 % 12.1-15.4 788-0) PLT (test code = 154 See_Comment [Automated 777-3) message] The sy stem which generated this result transmitted reference range : 150 - 328 10*3/ ?L. The reference r mitra was not used to interpret this result as normal/abnormal . MPV (test code = 9.5 fL 9.8-13.0 L 65189-7) NRBC/100 WBC (test 0.2 See_Comment [Automat ed code = 1748261273) message] The system which generated this result transmitted reference range : 0.0 - 10.0 /100 WBCs. The refer ence range was not u sed to interpret th is result as normal/abnormal . NRBC x10^3 (test code 0.02 See_Comment [Auto mated = 8203067329) message] The s ystem which generated this result transmitted reference range : 10*3/?L. The reference range was not used to interpret this result as normal/abnormal . GRAN MAT (NEUT) % 80.7 % (test code = 770-8) IMM GRAN % (test code 4.50 % = 3259539921) LYMPH % (test code = 6.5 % 736-9) MONO % (test code = 7.3 % 5905-5) EOS % (test code = 0.6 % 713-8) BASO % (test code = 0.4 % 706-2) GRAN MAT x10^3(ANC) 7.92 10*3/uL 1.99-6.95 H (test code = 3914182946) IMM GRAN x10^3 (test 0.44 10*3/uL 0.00-0.06 H code = 8535335485) LYMPH x10^3 (test code 0.64 10*3/uL 1.09-3.23 L = 731-0) MONO x10^3 (test code 0.72 10*3/uL 0.36-1.02 = 742-7) EOS x10^3 (test code = 0.06 10*3/uL 0.06-0.53 711-2) BASO x10^3 (test code 0.04 10*3/uL 0.01-0.09 = 704-7) MEAGHAN CELLS (test code 2+ See_Comment A [Auto mated = 7352-5) message] The sy stem which generated this result transmitted reference range : (none). The reference range was not used to interpret this result as normal/abnormal . REACT LYMPHS (test Rare code = 5369356929) Lab Interpretation Abnormal (test code = 12034-4) [facility] Test Item Value Reference Range Interpretation Comments MAGNESIUM (test code = 4378519366) 2.1 mg/dL 1.7-2.4 Lab Interpretation (test code = Normal 50111-2) [facility] 11[facility]43:29 Test Item Value Reference Range Interpretation Comments PHOSPHORUS (test code = 0835614166) 3.7 mg/dL 2.5-5.0 Lab Interpretation (test code = Normal 85672-6) [facility] (NA, K, CL, CO2, GLUCOSE, BUN, CREATININE, CA)2022-05-31 11:43:29 Test Item Value Reference Range Interpretation Comments NA (test code = 133 mmol/L 135-145 L 6359516760) K (test code = 4.7 mmol/L 3.5-5.0 Slight 7359982576) hemolysis CL (test code = 104 mmol/L 98-108 9139000828) CO2 TOTAL (test code 25 mmol/L 23-31 = 6597897561) AGAP (test code = 4 2-16 4959861349) BUN (test code = 17 mg/dL 7-23 Slight 1368149259) hemolysis GLUCOSE (test code = 189 mg/dL 70-110 H 5860616911) CREATININE (test code 0.82 mg/dL 0.60-1.25 = 9011317762) CALCIUM (test code = 8.0 mg/dL 8.6-10.6 L 6492504623) eGFR (test code = 96.2 mL/min/1.73m2 5824119894) DEWAYNE (test code = DEWAYNE) Association of [...] tests). Lab Interpretation Abnormal (test code = 31539-3) [facility] 11:43:29 Test Item Value Reference Range Interpretation Comments MAGNESIUM (test code = 9139661031) 2.1 mg/dL 1.7-2.4 Lab Interpretation (test code = Normal 14359-6) [facility] 11:43:29 Test Item Value Reference Range Interpretation Comments PHOSPHORUS (test code = 6705331001) 3.7 mg/dL 2.5-5.0 Lab Interpretation (test code = Normal 55730-8) [facility] (NA, K, CL, CO2, GLUCOSE, BUN, CREATININE, CA)2022-05-31 11:43:29 Test Item Value Reference Range Interpretation Comments NA (test code = 133 mmol/L 135-145 L 8918113600) K (test code = 4.7 mmol/L 3.5-5.0 Slight 0203448158) hemolysis CL (test code = 104 mmol/L 98-108 2332409620) CO2 TOTAL (test code 25 mmol/L 23-31 = 8428181019) AGAP (test code = 4 2-16 0040653884) BUN (test code = 17 mg/dL 7-23 Slight 5898791333) hemolysis GLUCOSE (test code = 189 mg/dL 70-110 H 3725759883) CREATININE (test code 0.82 mg/dL 0.60-1.25 = 2153016024) CALCIUM (test code = 8.0 mg/dL 8.6-10.6 L 6847499341) eGFR (test code = 96.2 mL/min/1.73m2 1329255379) DEWAYNE (test code = DEWAYNE) Association of [...] tests). Lab Interpretation Abnormal (test code = 12601-0) [facility] 11:43:29 Test Item Value Reference Range Interpretation Comments MAGNESIUM (test code = 2541628730) 2.1 mg/dL 1.7-2.4 Lab Interpretation (test code = Normal 44845-8) [facility] 11:43:29 Test Item Value Reference Range Interpretation Comments PHOSPHORUS (test code = 4188565801) 3.7 mg/dL 2.5-5.0 Lab Interpretation (test code = Normal 93604-6) [facility] (NA, K, CL, CO2, GLUCOSE, BUN, CREATININE, CA)2022-05-31 11:43:29 Test Item Value Reference Range Interpretation Comments NA (test code = 133 mmol/L 135-145 L 5818023581) K (test code = 4.7 mmol/L 3.5-5.0 Slight 1439810770) hemolysis CL (test code = 104 mmol/L 98-108 9484424299) CO2 TOTAL (test code 25 mmol/L 23-31 = 5684586417) AGAP (test code = 4 2-16 7731103020) BUN (test code = 17 mg/dL 7-23 Slight 9680196286) hemolysis GLUCOSE (test code = 189 mg/dL 70-110 H 2932660401) CREATININE (test code 0.82 mg/dL 0.60-1.25 = 7042855842) CALCIUM (test code = 8.0 mg/dL 8.6-10.6 L 4360973787) eGFR (test code = 96.2 mL/min/1.73m2 4172455364) DEWAYNE (test code = DEWAYNE) Association of [...] tests). Lab Interpretation Abnormal (test code = 84932-6) [facility] 11:30:44 Test Item Value Reference Range Interpretation Comments Fibrinogen (test code = 0828541632) 218 mg/dL 167-453 Lab Interpretation (test code = Normal 09758-7) [facility] 11:30:44 Test Item Value Reference Range Interpretation Comments Fibrinogen (test code = 2618193403) 218 mg/dL 167-453 Lab Interpretation (test code = Normal 34110-4) [facility] 11:30:44 Test Item Value Reference Range Interpretation Comments Fibrinogen (test code = 5426070584) 218 mg/dL 167-453 Lab Interpretation (test code = Normal 78369-0) [facility] / [id number] 11:29:02 Test Item Value Reference Range Interpretation Comments PROTIME PATIENT (test 12.7 See_Comment H [Auto mated message] code = 5964-2) The system [employer] generated this result transmitted ref erence range: 10.1 - 1 2.6 Seconds. The reference range was not used to int erpret this result as normal/abnormal . INR (test code = 6301-6) 1.1 Nor mal INR <1.1; Warfarin Therap eutic range 2.0 to 3. 0 or 2.5 to 3.5, dep ending upon the indica tions. Lab Interpretation (test Abnormal code = 13981-3) [facility] 11:29:02 Test Item Value Reference Range Interpretation Comments APTT Patient (test code 82 See_Comment H [Au tomated message] = 3173-2) The system [employer] generated this result transmitted ref erence range: 26 - 36 Seconds. The reference range was not used to int erpret this result as normal/abnormal . Lab Interpretation (test Abnormal code = 37665-6) [facility] / [id number] 11:29:02 Test Item Value Reference Range Interpretation Comments PROTIME PATIENT (test 12.7 See_Comment H [Auto mated message] code = 5964-2) The system [employer] generated this result transmitted ref erence range: 10.1 - 1 2.6 Seconds. The reference range was not used to int erpret this result as normal/abnormal . INR (test code = 6301-6) 1.1 Nor mal INR <1.1; Warfarin Therap eutic range 2.0 to 3. 0 or 2.5 to 3.5, dep ending upon the indica tions. Lab Interpretation (test Abnormal code = 86711-3) [facility] 11:29:02 Test Item Value Reference Range Interpretation Comments APTT Patient (test code 82 See_Comment H [Au tomated message] = 3173-2) The system [employer] generated this result transmitted ref erence range: 26 - 36 Seconds. The reference range was not used to int erpret this result as normal/abnormal . Lab Interpretation (test Abnormal code = 05441-5) [facility] / [id number] 11:29:02 Test Item Value Reference Range Interpretation Comments PROTIME PATIENT (test 12.7 See_Comment H [Auto mated message] code = 5964-2) The system [employer] generated this result transmitted ref erence range: 10.1 - 1 2.6 Seconds. The reference range was not used to int erpret this result as normal/abnormal . INR (test code = 6301-6) 1.1 Nor mal INR <1.1; Warfarin Therap eutic range 2.0 to 3. 0 or 2.5 to 3.5, dep ending upon the indica tions. Lab Interpretation (test Abnormal code = 62778-2) [facility] 11:29:02 Test Item Value Reference Range Interpretation Comments APTT Patient (test code 82 See_Comment H [Au tomated message] = 3173-2) The system [employer] generated this result transmitted ref erence range: 26 - 36 Seconds. The reference range was not used to int erpret this result as normal/abnormal . Lab Interpretation (test Abnormal code = 05380-4) [facility] 02:12:17 Test Item Value Reference Range Interpretation Comments Fibrinogen (test code = 8838469197) 124 mg/dL 167-453 L Lab Interpretation (test code = Abnormal 69117-4) [facility]2023-04-18 02:12:17 Test Item Value Reference Range Interpretation Comments Fibrinogen (test code = 3989416508) 124 mg/dL 167-453 L Lab Interpretation (test code = Abnormal 78209-0) [facility]2023-04-18 02:12:17 Test Item Value Reference Range Interpretation Comments Fibrinogen (test code = 5141811029) 124 mg/dL 167-453 L Lab Interpretation (test code = Abnormal 99317-2) [facility]2023-04-17 22:27:11 Test Item Value Reference Range Interpretation Comments Fibrinogen (test code = 3153112362) 108 mg/dL 167-453 L Lab Interpretation (test code = Abnormal 20131-1) [facility]2023-04-17 22:27:11 Test Item Value Reference Range Interpretation Comments Fibrinogen (test code = 1480110147) 108 mg/dL 167-453 L Lab Interpretation (test code = Abnormal 97580-5) [facility]2023-04-17 22:27:11 Test Item Value Reference Range Interpretation Comments Fibrinogen (test code = 0035528555) 108 mg/dL 167-453 L Lab Interpretation (test code = Abnormal 57839-7) [facility]2023-04-17 18:54:36 Test Item Value Reference Range Interpretation Comments Fibrinogen (test code = 2729546517) 110 mg/dL 167-453 L Lab Interpretation (test code = Abnormal 89074-3) [facility]2023-04-17 18:54:36 Test Item Value Reference Range Interpretation Comments Fibrinogen (test code = 7006647278) 110 mg/dL 167-453 L Lab Interpretation (test code = Abnormal 64529-4) [facility]2023-04-17 18:54:36 Test Item Value Reference Range Interpretation Comments Fibrinogen (test code = 7026172728) 110 mg/dL 167-453 L Lab Interpretation (test code = Abnormal 23817-6) [facility]2023-04-17 18:54:36 Test Item Value Reference Range Interpretation Comments Fibrinogen (test code = 7751770354) 110 mg/dL 167-453 L Lab Interpretation (test code = Abnormal 72163-6) [facility]2023-04-17 15:54:43 Test Item Value Reference Range Interpretation Comments Fibrinogen (test code = 2889513073) 118 mg/dL 167-453 L Lab Interpretation (test code = Abnormal 29089-5) [facility]2023-04-17 15:54:43 Test Item Value Reference Range Interpretation Comments Fibrinogen (test code = 5188824018) 118 mg/dL 167-453 L Lab Interpretation (test code = Abnormal 57493-2) [facility]2023-04-17 15:54:43 Test Item Value Reference Range Interpretation Comments Fibrinogen (test code = 0424297620) 118 mg/dL 167-453 L Lab Interpretation (test code = Abnormal 76504-2) [facility]2023-04-17 15:54:43 Test Item Value Reference Range Interpretation Comments Fibrinogen (test code = 1509730870) 118 mg/dL 167-453 L Lab Interpretation (test code = Abnormal 93462-5) [facility]2023-04-17 13:43:27 Test Item Value Reference Range Interpretation Comments Fibrinogen (test code = 5416141358) 119 mg/dL 167-453 L Lab Interpretation (test code = Abnormal 49395-2) [facility]2023-04-17 13:43:27 Test Item Value Reference Range Interpretation Comments Fibrinogen (test code = 1596771184) 119 mg/dL 167-453 L Lab Interpretation (test code = Abnormal 05410-9) [facility]2023-04-17 13:43:27 Test Item Value Reference Range Interpretation Comments Fibrinogen (test code = 9225041399) 119 mg/dL 167-453 L Lab Interpretation (test code = Abnormal 21084-1) [facility]2023-04-17 13:43:27 Test Item Value Reference Range Interpretation Comments Fibrinogen (test code = 7448475827) 119 mg/dL 167-453 L Lab Interpretation (test code = Abnormal 46488-5) [facility]:10 Test Item Value Reference Range Interpretation Comments Fibrinogen (test code = 4627596543) 97 mg/dL 167-453 LL Lab Interpretation (test code = Abnormal 04057-6) [facility] 11:50:10 Test Item Value Reference Range Interpretation Comments Fibrinogen (test code = 1993737291) 97 mg/dL 167-453 LL Lab Interpretation (test code = Abnormal 24251-8) [facility] 11:50:10 Test Item Value Reference Range Interpretation Comments Fibrinogen (test code = 5748082504) 97 mg/dL 167-453 LL Lab Interpretation (test code = Abnormal 81175-8) [facility]2023-04-17 11:50:10 Test Item Value Reference Range Interpretation Comments Fibrinogen (test code = 2950899439) 97 mg/dL 167-453 LL Lab Interpretation (test code = Abnormal 11421-4) [facility] WITH [id number] 10:13:04 Test Item Value Reference Range Interpretation Comments WBC (test code = 9.36 See_Comment [Automated 6690-2) message] The sy stem which generated this result transmitted reference range : 4.20 - 10.70 10*3/?L. The reference range was not used to interpret this result as normal/abnormal . RBC (test code = 4.03 See_Comment L [Automated 199-8) message] The sy [...] RDW-SD (test code = 45.3 fL 38.5-51.6 22530-5) RDW-CV (test code = 14.5 % 12.1-15.4 788-0) PLT (test code = 174 See_Comment [Automated 777-3) message] The sy stem which generated this result transmitted reference range : 150 - 328 10*3/ ?L. The reference r mitra was not used to interpret this result as normal/abnormal . MPV (test code = 8.9 fL 9.8-13.0 L 31433-1) NRBC/100 WBC (test 0.3 See_Comment [Automat ed code = 8020186421) message] The system which generated this result transmitted reference range : 0.0 - 10.0 /100 WBCs. The refer ence range was not u sed to interpret th is result as normal/abnormal . NRBC x10^3 (test code 0.03 See_Comment [Auto mated = 7299322375) message] The s ystem which generated this result transmitted reference range : 10*3/?L. The reference range was not used to interpret this result as normal/abnormal . GRAN MAT (NEUT) % 63.0 % (test code = 770-8) IMM GRAN % (test code 3.60 % = 9745857196) LYMPH % (test code = 17.5 % 736-9) MONO % (test code = 10.8 % 5905-5) EOS % (test code = 4.5 % 713-8) BASO % (test code = 0.6 % 706-2) GRAN MAT x10^3(ANC) 5.89 10*3/uL 1.99-6.95 (test code = 8807633873) IMM GRAN x10^3 (test 0.34 10*3/uL 0.00-0.06 H code = 2605216047) LYMPH x10^3 (test code 1.64 10*3/uL 1.09-3.23 = 731-0) MONO x10^3 (test code 1.01 10*3/uL 0.36-1.02 = 742-7) EOS x10^3 (test code = 0.42 10*3/uL 0.06-0.53 711-2) BASO x10^3 (test code 0.06 10*3/uL 0.01-0.09 = 704-7) REACT LYMPHS (test Rare code = 8867148282) Lab Interpretation Abnormal (test code = 73904-6) [facility] WITH [id number] 10:13:04 Test Item Value Reference Range Interpretation [...] RDW-SD (test code = 45.3 fL 38.5-51.6 76210-9) RDW-CV (test code = 14.5 % 12.1-15.4 788-0) PLT (test code = 174 See_Comment [Automated 777-3) message] The sy stem which generated this result transmitted reference range : 150 - 328 10*3/ ?L. The reference r mitra was not used to interpret this result as normal/abnormal . MPV (test code = 8.9 fL 9.8-13.0 L 35187-9) NRBC/100 WBC (test 0.3 See_Comment [Automat ed code = 9809965110) message] The system which generated this result transmitted reference range : 0.0 - 10.0 /100 WBCs. The refer ence range was not u sed to interpret th is result as normal/abnormal . NRBC x10^3 (test code 0.03 See_Comment [Auto mated = 5252898905) message] The s ystem which generated this result transmitted reference range : 10*3/?L. The reference range was not used to interpret this result as normal/abnormal . GRAN MAT (NEUT) % 63.0 % (test code = 770-8) IMM GRAN % (test code 3.60 % = 4080182205) LYMPH % (test code = 17.5 % 736-9) MONO % (test code = 10.8 % 5905-5) EOS % (test code = 4.5 % 713-8) BASO % (test code = 0.6 % 706-2) GRAN MAT x10^3(ANC) 5.89 10*3/uL 1.99-6.95 (test code = 4698895263) IMM GRAN x10^3 (test 0.34 10*3/uL 0.00-0.06 H code = 3714675100) LYMPH x10^3 (test code 1.64 10*3/uL 1.09-3.23 = 731-0) MONO x10^3 (test code 1.01 10*3/uL 0.36-1.02 = 742-7) EOS x10^3 (test code = 0.42 10*3/uL 0.06-0.53 711-2) BASO x10^3 (test code 0.06 10*3/uL 0.01-0.09 = 704-7) REACT LYMPHS (test Rare code = 8441172543) Lab Interpretation Abnormal (test code = 54973-5) [facility] WITH [id number] 10:13:04 Test Item Value Reference Range Interpretation Comments WBC (test code = 9.36 See_Comment [Automated 3090-2) message] The sy stem which generated this result transmitted reference range : 4.20 - 10.70 10*3/?L. The reference range was not used to interpret this result as normal/abnormal . RBC (test code = 4.03 See_Comment L [Automated 549-8) message] The sy stem which generated this [...] RDW-SD (test code = 45.3 fL 38.5-51.6 63969-8) RDW-CV (test code = 14.5 % 12.1-15.4 788-0) PLT (test code = 174 See_Comment [Automated 777-3) message] The sy stem which generated this result transmitted reference range : 150 - 328 10*3/ ?L. The reference r mitra was not used to interpret this result as normal/abnormal . MPV (test code = 8.9 fL 9.8-13.0 L 99604-0) NRBC/100 WBC (test 0.3 See_Comment [Automat ed code = 8670150271) message] The system which generated this result transmitted reference range : 0.0 - 10.0 /100 WBCs. The refer ence range was not u sed to interpret th is result as normal/abnormal . NRBC x10^3 (test code 0.03 See_Comment [Auto mated = 0881444468) message] The s ystem which generated this result transmitted reference range : 10*3/?L. The reference range was not used to interpret this result as normal/abnormal . GRAN MAT (NEUT) % 63.0 % (test code = 770-8) IMM GRAN % (test code 3.60 % = 8205555940) LYMPH % (test code = 17.5 % 736-9) MONO % (test code = 10.8 % 5905-5) EOS % (test code = 4.5 % 713-8) BASO % (test code = 0.6 % 706-2) GRAN MAT x10^3(ANC) 5.89 10*3/uL 1.99-6.95 (test code = 6591317243) IMM GRAN x10^3 (test 0.34 10*3/uL 0.00-0.06 H code = 5276391718) LYMPH x10^3 (test code 1.64 10*3/uL 1.09-3.23 = 731-0) MONO x10^3 (test code 1.01 10*3/uL 0.36-1.02 = 742-7) EOS x10^3 (test code = 0.42 10*3/uL 0.06-0.53 711-2) BASO x10^3 (test code 0.06 10*3/uL 0.01-0.09 = 704-7) REACT LYMPHS (test Rare code = 5515771109) Lab Interpretation Abnormal (test code = 03987-5) [facility] WITH [id number] 10:13:04 Test Item Value Reference Range Interpretation Comments WBC (test code = 9.36 See_Comment [Automated 4390-2) message] The sy stem [...] RDW-SD (test code = 45.3 fL 38.5-51.6 53100-4) RDW-CV (test code = 14.5 % 12.1-15.4 788-0) PLT (test code = 174 See_Comment [Automated 777-3) message] The sy stem which generated this result transmitted reference range : 150 - 328 10*3/ ?L. The reference r mitra was not used to interpret this result as normal/abnormal . MPV (test code = 8.9 fL 9.8-13.0 L 52780-7) NRBC/100 WBC (test 0.3 See_Comment [Automat ed code = 6829111421) message] The system which generated this result transmitted reference range : 0.0 - 10.0 /100 WBCs. The refer ence range was not u sed to interpret th is result as normal/abnormal . NRBC x10^3 (test code 0.03 See_Comment [Auto mated = 6421240609) message] The s ystem which generated this result transmitted reference range : 10*3/?L. The reference range was not used to interpret this result as normal/abnormal . GRAN MAT (NEUT) % 63.0 % (test code = 770-8) IMM GRAN % (test code 3.60 % = 1447568329) LYMPH % (test code = 17.5 % 736-9) MONO % (test code = 10.8 % 5905-5) EOS % (test code = 4.5 % 713-8) BASO % (test code = 0.6 % 706-2) GRAN MAT x10^3(ANC) 5.89 10*3/uL 1.99-6.95 (test code = 1137378432) IMM GRAN x10^3 (test 0.34 10*3/uL 0.00-0.06 H code = 3115173131) LYMPH x10^3 (test code 1.64 10*3/uL 1.09-3.23 = 731-0) MONO x10^3 (test code 1.01 10*3/uL 0.36-1.02 = 742-7) EOS x10^3 (test code = 0.42 10*3/uL 0.06-0.53 711-2) BASO x10^3 (test code 0.06 10*3/uL 0.01-0.09 = 704-7) REACT LYMPHS (test Rare code = 6999635420) Lab Interpretation Abnormal (test code = 07585-8) [facility] Test Item Value Reference Range Interpretation Comments PHOSPHORUS (test code = 9977976350) 4.2 mg/dL 2.5-5.0 Lab Interpretation (test code = Normal 82541-5) [facility] Test Item Value Reference Range Interpretation Comments MAGNESIUM (test code = 4011985654) 2.0 mg/dL 1.7-2.4 Lab Interpretation (test code = Normal 39967-8) [facility] (NA, K, CL, CO2, GLUCOSE, BUN, CREATININE, CA)2022-05-30 10:10:03 Test Item Value Reference Range Interpretation Comments NA (test code = 133 mmol/L 135-145 L 2281829586) K (test code = 3.9 mmol/L 3.5-5.0 5018797699) CL (test code = 103 mmol/L 98-108 0783059587) CO2 TOTAL (test code = 25 mmol/L 23-31 7786803291) AGAP (test code = 5 2-16 3048724287) BUN (test code = 22 mg/dL 7-23 1456852505) GLUCOSE (test code = 128 mg/dL 70-110 H 8124758901) CREATININE (test code = 0.87 mg/dL 0.60-1.25 3094653320) CALCIUM (test code = 8.2 mg/dL 8.6-10.6 L 8376404129) eGFR (test code = 89.8 mL/min/1.73m2 1557108932) DEWAYNE (test code = DEWAYNE) Association of [...] tests). Lab Interpretation Abnormal (test code = 76624-7) [facility] Test Item Value Reference Range Interpretation Comments PHOSPHORUS (test code = 0460311634) 4.2 mg/dL 2.5-5.0 Lab Interpretation (test code = Normal 94551-1) [facility] 10:10:03 Test Item Value Reference Range Interpretation Comments MAGNESIUM (test code = 3193086644) 2.0 mg/dL 1.7-2.4 Lab Interpretation (test code = Normal 05709-6) [facility] (NA, K, CL, CO2, GLUCOSE, BUN, CREATININE, CA)2022-05-30 10:10:03 Test Item Value Reference Range Interpretation Comments NA (test code = 133 mmol/L 135-145 L 7150571367) K (test code = 3.9 mmol/L 3.5-5.0 9593998579) CL (test code = 103 mmol/L 98-108 4937316504) CO2 TOTAL (test code = 25 mmol/L 23-31 0719966598) AGAP (test code = 5 2-16 2532667419) BUN (test code = 22 mg/dL 7-23 7292490001) GLUCOSE (test code = 128 mg/dL 70-110 H 2931489563) CREATININE (test code = 0.87 mg/dL 0.60-1.25 8864346436) CALCIUM (test code = 8.2 mg/dL 8.6-10.6 L 6250270131) eGFR (test code = 89.8 mL/min/1.73m2 0426181971) DEWAYNE (test code = DEWAYNE) Association of [...] tests). Lab Interpretation Abnormal (test code = 95122-4) [facility]:03 Test Item Value Reference Range Interpretation Comments PHOSPHORUS (test code = 5134981038) 4.2 mg/dL 2.5-5.0 Lab Interpretation (test code = Normal 06225-3) [facility] 10:10:03 Test Item Value Reference Range Interpretation Comments MAGNESIUM (test code = 1390815151) 2.0 mg/dL 1.7-2.4 Lab Interpretation (test code = Normal 58841-7) [facility] (NA, K, CL, CO2, GLUCOSE, BUN, CREATININE, CA)2022-05-30 10:10:03 Test Item Value Reference Range Interpretation Comments NA (test code = 133 mmol/L 135-145 L 0390547996) K (test code = 3.9 mmol/L 3.5-5.0 2204069016) CL (test code = 103 mmol/L 98-108 8326934418) CO2 TOTAL (test code = 25 mmol/L 23-31 6701414327) AGAP (test code = 5 2-16 1571150553) BUN (test code = 22 mg/dL 7-23 4730858286) GLUCOSE (test code = 128 mg/dL 70-110 H 8416978228) CREATININE (test code = 0.87 mg/dL 0.60-1.25 1980240357) CALCIUM (test code = 8.2 mg/dL 8.6-10.6 L 5589282231) eGFR (test code = 89.8 mL/min/1.73m2 2541080496) DEWAYNE (test code = DEWAYNE) Association of [...] tests). Lab Interpretation Abnormal (test code = 08824-5) [facility] 10:10:03 Test Item Value Reference Range Interpretation Comments PHOSPHORUS (test code = 1418940519) 4.2 mg/dL 2.5-5.0 Lab Interpretation (test code = Normal 61800-8) [facility] 10:10:03 Test Item Value Reference Range Interpretation Comments MAGNESIUM (test code = 0827908074) 2.0 mg/dL 1.7-2.4 Lab Interpretation (test code = Normal 92930-0) [facility] (NA, K, CL, CO2, GLUCOSE, BUN, CREATININE, CA)2022-05-30 10:10:03 Test Item Value Reference Range Interpretation Comments NA (test code = 133 mmol/L 135-145 L 0657308886) K (test code = 3.9 mmol/L 3.5-5.0 5424946455) CL (test code = 103 mmol/L 98-108 8353104893) CO2 TOTAL (test code = 25 mmol/L 23-31 4984270131) AGAP (test code = 5 2-16 6342644859) BUN (test code = 22 mg/dL 7-23 6731128562) GLUCOSE (test code = 128 mg/dL 70-110 H 9791937900) CREATININE (test code = 0.87 mg/dL 0.60-1.25 7724196679) CALCIUM (test code = 8.2 mg/dL 8.6-10.6 L 4471935070) eGFR (test code = 89.8 mL/min/1.73m2 4552499552) DEWAYNE (test code = DEWAYNE) Association of [...] tests). Lab Interpretation Abnormal (test code = 99543-1) [facility]2023-04-17 09:52:38 Test Item Value Reference Range Interpretation Comments Fibrinogen (test code = 3933510835) 86 mg/dL 167-453 LL Lab Interpretation (test code = Abnormal 75185-1) [facility] Test Item Value Reference Range Interpretation Comments Fibrinogen (test code = 5990956891) 86 mg/dL 167-453 LL Lab Interpretation (test code = Abnormal 21455-6) [facility]2023-04-17 09:52:38 Test Item Value Reference Range Interpretation Comments Fibrinogen (test code = 8142764072) 86 mg/dL 167-453 LL Lab Interpretation (test code = Abnormal 36008-3) [facility]2023-04-17 09:52:38 Test Item Value Reference Range Interpretation Comments Fibrinogen (test code = 3099932859) 86 mg/dL 167-453 LL Lab Interpretation (test code = Abnormal 25815-9) [place] [id number] 09:51:57 Test Item Value Reference Range Interpretation Comments APTT Patient (test code 44 See_Comment H [Au tomated message] = 5543-2) The system Cognea generated this result transmitted ref erence range: 26 - 36 Seconds. The reference range was not used to int erpret this result as normal/abnormal . Lab Interpretation (test Abnormal code = 08689-1) [place] 33157023-04-17 09:51:57 Test Item Value Reference Range Interpretation Comments APTT Patient (test code 44 See_Comment H [Au tomated message] = 3173-2) The system C[employer] generated this result transmitted ref erence range: 26 - 36 Seconds. The reference range was not used to int erpret this result as normal/abnormal . Lab Interpretation (test Abnormal code = 60675-2) [place] [id number] 09:51:57 Test Item Value Reference Range Interpretation Comments APTT Patient (test code 44 See_Comment H [Au tomated message] = 3173-2) The system C[employer] generated this result transmitted ref erence range: 26 - 36 Seconds. The reference range was not used to int erpret this result as normal/abnormal . Lab Interpretation (test Abnormal code = 82631-9) [place] [id number] 09:51:57 Test Item Value Reference Range Interpretation Comments APTT Patient (test code 44 See_Comment H [Au tomated message] = 3173-2) The system Cog[employer] generated this result transmitted ref erence range: 26 - 36 Seconds. The reference range was not used to int erpret this result as normal/abnormal . Lab Interpretation (test Abnormal code = 10199-9) [facility]2023-04-17 07:28:55 Test Item Value Reference Range Interpretation Comments Fibrinogen (test code = 3701110310) 73 mg/dL 167-453 LL Lab Interpretation (test code = Abnormal 61864-2) [facility]2023-04-17 07:28:55 Test Item Value Reference Range Interpretation Comments Fibrinogen (test code = 8019813684) 73 mg/dL 167-453 LL Lab Interpretation (test code = Abnormal 42256-0) [facility]2023-04-17 07:28:55 Test Item Value Reference Range Interpretation Comments Fibrinogen (test code = 0200325949) 73 mg/dL 167-453 LL Lab Interpretation (test code = Abnormal 90995-4) [facility]2023-04-17 07:28:55 Test Item Value Reference Range Interpretation Comments Fibrinogen (test code = 0361402418) 73 mg/dL 167-453 LL Lab Interpretation (test code = Abnormal 93827-5) [facility] (for use with Heparin Drip)2022-05-30 06:39:14 Test Item Value Reference Range Interpretation Comments APTT Patient (test code 44 See_Comment H [Au tomated message] = 3173-2) The system Cognea generated this result transmitted ref erence range: 26 - 36 Seconds. The reference range was not used to int erpret this result as normal/abnormal . Lab Interpretation (test Abnormal code = 73760-6) [facility] (for use with Heparin Drip)2022-05-30 06:39:14 Test Item Value Reference Range Interpretation Comments APTT Patient (test code 44 See_Comment H [Au tomated message] = 3173-2) The system Cog[employer] generated this result transmitted ref erence range: 26 - 36 Seconds. The reference range was not used to int erpret this result as normal/abnormal . Lab Interpretation (test Abnormal code = 99522-9) [facility] (for use with Heparin Drip)2022-05-30 06:39:14 Test Item Value Reference Range Interpretation Comments APTT Patient (test code 44 See_Comment H [Au tomated message] = 3173-2) The system C[employer] generated this result transmitted ref erence range: 26 - 36 Seconds. The reference range was not used to int erpret this result as normal/abnormal . Lab Interpretation (test Abnormal code = 32339-8) [facility] (for use with Heparin Drip)2022-05-30 06:39:14 Test Item Value Reference Range Interpretation Comments APTT Patient (test code 44 See_Comment H [Au tomated message] = 3173-2) The system C[employer] generated this result transmitted ref erence range: 26 - 36 Seconds. The reference range was not used to int erpret this result as normal/abnormal . Lab Interpretation (test Abnormal code = 39079-5) [facility]04 Test Item Value Reference Range Interpretation Comments Fibrinogen (test code = 5389425286) 71 mg/dL 167-453 LL Lab Interpretation (test code = Abnormal 49598-5) [facility]2023-04-17 05:26:04 Test Item Value Reference Range Interpretation Comments Fibrinogen (test code = 5865503563) 71 mg/dL 167-453 LL Lab Interpretation (test code = Abnormal 92406-7) [facility]2023-04-17 05:26:04 Test Item Value Reference Range Interpretation Comments Fibrinogen (test code = 1258111992) 71 mg/dL 167-453 LL Lab Interpretation (test code = Abnormal 54318-2) [facility]2023-04-17 05:26:04 Test Item Value Reference Range Interpretation Comments Fibrinogen (test code = 3610255802) 71 mg/dL 167-453 LL Lab Interpretation (test code = Abnormal 76676-5) [facility]2023-04-16 23:49:05 Test Item Value Reference Range Interpretation Comments Fibrinogen (test code = 9572978089) 98 mg/dL 167-453 LL Lab Interpretation (test code = Abnormal 19861-4) [facility]2023-04-16 23:49:05 Test Item Value Reference Range Interpretation Comments Fibrinogen (test code = 2127771661) 98 mg/dL 167-453 LL Lab Interpretation (test code = Abnormal 37567-5) [facility]2023-04-16 23:49:05 Test Item Value Reference Range Interpretation Comments Fibrinogen (test code = 6079667992) 98 mg/dL 167-453 LL Lab Interpretation (test code = Abnormal 39151-3) [facility]2023-04-16 23:49:05 Test Item Value Reference Range Interpretation Comments Fibrinogen (test code = 7593006090) 98 mg/dL 167-453 LL Lab Interpretation (test code = Abnormal 51118-5) [facility]2023-04-16 21:48:37 Test Item Value Reference Range Interpretation Comments Fibrinogen (test code = 6990311604) 113 mg/dL 167-453 L Lab Interpretation (test code = Abnormal 04536-8) [facility]2023-04-16 21:48:37 Test Item Value Reference Range Interpretation Comments Fibrinogen (test code = 5261371726) 113 mg/dL 167-453 L Lab Interpretation (test code = Abnormal 84097-1) [facility] 21:48:37 Test Item Value Reference Range Interpretation Comments Fibrinogen (test code = 9608698532) 113 mg/dL 167-453 L Lab Interpretation (test code = Abnormal 43916-5) [facility] 21:48:37 Test Item Value Reference Range Interpretation Comments Fibrinogen (test code = 2757480639) 113 mg/dL 167-453 L Lab Interpretation (test code = Abnormal 27715-4) [facility] METABOLIC PANEL (NA, K, CL, CO2, GLUCOSE, BUN, CREATININE, CA)2022-05-29 15:33:06 Test Item Value Reference Range Interpretation Comments NA (test code = 139 mmol/L 135-145 7566256701) K (test code = 4.2 mmol/L 3.5-5.0 6414015925) CL (test code = 104 mmol/L 98-108 6465523422) CO2 TOTAL (test code = 29 mmol/L 23-31 8551921724) AGAP (test code = 6 2-16 7659259665) BUN (test code = 25 mg/dL 7-23 H 4371196422) GLUCOSE (test code = 85 mg/dL 70-110 3919325428) CREATININE (test code = 1.02 mg/dL 0.60-1.25 0905660796) CALCIUM (test code = 8.7 mg/dL 8.6-10.6 7123281202) eGFR (test code = 74.8 mL/min/1.73m2 6275958771) DEWAYNE (test code = DEWAYNE) Association of [...] tests). Lab Interpretation Abnormal (test code = 37598-7) [facility] METABOLIC PANEL (NA, K, CL, CO2, GLUCOSE, BUN, CREATININE, CA)2022-05-29 15:33:06 Test Item Value Reference Range Interpretation Comments NA (test code = 139 mmol/L 135-145 0385112714) K (test code = 4.2 mmol/L 3.5-5.0 0745092889) CL (test code = 104 mmol/L 98-108 7239857921) CO2 TOTAL (test code = 29 mmol/L 23-31 0958172090) AGAP (test code = 6 2-16 5849579174) BUN (test code = 25 mg/dL 7-23 H 2654717766) GLUCOSE (test code = 85 mg/dL 70-110 0324255028) CREATININE (test code = 1.02 mg/dL 0.60-1.25 0125477363) CALCIUM (test code = 8.7 mg/dL 8.6-10.6 9150373356) eGFR (test code = 74.8 mL/min/1.73m2 5292973937) DEWAYNE (test code = DEWAYNE) Association of [...] tests). Lab Interpretation Abnormal (test code = 46125-4) [facility] (NA, K, CL, CO2, GLUCOSE, BUN, CREATININE, CA)2022-05-29 15:33:06 Test Item Value Reference Range Interpretation Comments NA (test code = 139 mmol/L 135-145 2712757478) K (test code = 4.2 mmol/L 3.5-5.0 6430073899) CL (test code = 104 mmol/L 98-108 4854164917) CO2 TOTAL (test code = 29 mmol/L 23-31 8555997924) AGAP (test code = 6 2-16 5225803495) BUN (test code = 25 mg/dL 7-23 H 6371821946) GLUCOSE (test code = 85 mg/dL 70-110 3148725844) CREATININE (test code = 1.02 mg/dL 0.60-1.25 9523969459) CALCIUM (test code = 8.7 mg/dL 8.6-10.6 5592103830) eGFR (test code = 74.8 mL/min/1.73m2 3312192267) DEWAYNE (test code = DEWAYNE) Association of [...] tests). Lab Interpretation Abnormal (test code = 02412-3) [facility] METABOLIC PANEL (NA, K, CL, CO2, GLUCOSE, BUN, CREATININE, CA)2022-05-29 15:33:06 Test Item Value Reference Range Interpretation Comments NA (test code = 139 mmol/L 135-145 5810602570) K (test code = 4.2 mmol/L 3.5-5.0 7440150960) CL (test code = 104 mmol/L 98-108 0096270325) CO2 TOTAL (test code = 29 mmol/L 23-31 4216684283) AGAP (test code = 6 2-16 0087107120) BUN (test code = 25 mg/dL 7-23 H 0979902105) GLUCOSE (test code = 85 mg/dL 70-110 9685046959) CREATININE (test code = 1.02 mg/dL 0.60-1.25 7979328502) CALCIUM (test code = 8.7 mg/dL 8.6-10.6 5676867904) eGFR (test code = 74.8 mL/min/1.73m2 2642724687) DEWAYNE (test code = DEWAYNE) Association of [...] tests). Lab Interpretation Abnormal (test code = 64627-8) [facility] Test Item Value Reference Range Interpretation Comments Fibrinogen (test code = 1558679568) 368 mg/dL 167-453 Lab Interpretation (test code = Normal 78437-1) [facility] 15:15:42 Test Item Value Reference Range Interpretation Comments Fibrinogen (test code = 6193564933) 368 mg/dL 167-453 Lab Interpretation (test code = Normal 93180-9) [facility] 15:15:42 Test Item Value Reference Range Interpretation Comments Fibrinogen (test code = 9872712417) 368 mg/dL 167-453 Lab Interpretation (test code = Normal 57349-9) [facility] 15:15:42 Test Item Value Reference Range Interpretation Comments Fibrinogen (test code = 1381719372) 368 mg/dL 167-453 Lab Interpretation (test code = Normal 96049-8) [facility] WITH [id number] 15:09:40 Test Item Value Reference Range Interpretation Comments WBC (test code = 8.27 See_Comment [Automated 6290-2) message] The sy stem which generated this result transmitted reference range : 4.20 - 10.70 10*3/?L. The reference range was not used to interpret this result as normal/abnormal . RBC (test code = 4.18 See_Comment L [Automated 349-8) message] The sy [...] RDW-SD (test code = 47.6 fL 38.5-51.6 34379-2) RDW-CV (test code = 14.7 % 12.1-15.4 788-0) PLT (test code = 252 See_Comment [Automated 777-3) message] The sy stem which generated this result transmitted reference range : 150 - 328 10*3/ ?L. The reference r mitra was not used to interpret this result as normal/abnormal . MPV (test code = 9.1 fL 9.8-13.0 L 79251-1) NRBC/100 WBC (test 0.0 See_Comment [Automat ed code = 6658922098) message] The system which generated this result transmitted reference range : 0.0 - 10.0 /100 WBCs. The refer ence range was not u sed to interpret th is result as normal/abnormal . NRBC x10^3 (test code See_Comment [Auto mated = 3395167245) message] The s ystem which generated this result transmitted reference range : 10*3/?L. The reference range was not used to interpret this result as normal/abnormal . GRAN MAT (NEUT) % 53.7 % (test code = 770-8) IMM GRAN % (test code 1.90 % = 8464798174) LYMPH % (test code = 29.6 % 736-9) MONO % (test code = 8.1 % 5905-5) EOS % (test code = 5.7 % 713-8) BASO % (test code = 1.0 % 706-2) GRAN MAT x10^3(ANC) 4.44 10*3/uL 1.99-6.95 (test code = 1389182451) IMM GRAN x10^3 (test 0.16 10*3/uL 0.00-0.06 H code = 9930028203) LYMPH x10^3 (test code 2.45 10*3/uL 1.09-3.23 = 731-0) MONO x10^3 (test code 0.67 10*3/uL 0.36-1.02 = 742-7) EOS x10^3 (test code = 0.47 10*3/uL 0.06-0.53 711-2) BASO x10^3 (test code 0.08 10*3/uL 0.01-0.09 = 704-7) Lab Interpretation Abnormal (test code = 83416-6) [facility] WITH [id number] 15:09:40 Test Item Value Reference Range Interpretation [...] RDW-SD (test code = 47.6 fL 38.5-51.6 43393-4) RDW-CV (test code = 14.7 % 12.1-15.4 788-0) PLT (test code = 252 See_Comment [Automated 777-3) message] The sy stem which generated this result transmitted reference range : 150 - 328 10*3/ ?L. The reference r mitra was not used to interpret this result as normal/abnormal . MPV (test code = 9.1 fL 9.8-13.0 L 64351-8) NRBC/100 WBC (test 0.0 See_Comment [Automat ed code = 0940080049) message] The system which generated this result transmitted reference range : 0.0 - 10.0 /100 WBCs. The refer ence range was not u sed to interpret th is result as normal/abnormal . NRBC x10^3 (test code See_Comment [Auto mated = 9738457716) message] The s ystem which generated this result transmitted reference range : 10*3/?L. The reference range was not used to interpret this result as normal/abnormal . GRAN MAT (NEUT) % 53.7 % (test code = 770-8) IMM GRAN % (test code 1.90 % = 4959154054) LYMPH % (test code = 29.6 % 736-9) MONO % (test code = 8.1 % 5905-5) EOS % (test code = 5.7 % 713-8) BASO % (test code = 1.0 % 706-2) GRAN MAT x10^3(ANC) 4.44 10*3/uL 1.99-6.95 (test code = 2598974195) IMM GRAN x10^3 (test 0.16 10*3/uL 0.00-0.06 H code = 8969126275) LYMPH x10^3 (test code 2.45 10*3/uL 1.09-3.23 = 731-0) MONO x10^3 (test code 0.67 10*3/uL 0.36-1.02 = 742-7) EOS x10^3 (test code = 0.47 10*3/uL 0.06-0.53 711-2) BASO x10^3 (test code 0.08 10*3/uL 0.01-0.09 = 704-7) Lab Interpretation Abnormal (test code = 62734-8) [facility] WITH [id number] 15:09:40 Test Item Value Reference Range Interpretation Comments WBC (test code = 8.27 See_Comment [Automated 6690-2) message] The sy stem which generated this result transmitted reference range : 4.20 - 10.70 10*3/?L. The reference range was not used to interpret this result as normal/abnormal . RBC (test code = 4.18 See_Comment L [Automated 809-8) message] The sy [...] RDW-SD (test code = 47.6 fL 38.5-51.6 62811-5) RDW-CV (test code = 14.7 % 12.1-15.4 788-0) PLT (test code = 252 See_Comment [Automated 777-3) message] The sy stem which generated this result transmitted reference range : 150 - 328 10*3/ ?L. The reference r mitra was not used to interpret this result as normal/abnormal . MPV (test code = 9.1 fL 9.8-13.0 L 80121-0) NRBC/100 WBC (test 0.0 See_Comment [Automat ed code = 4811673952) message] The system which generated this result transmitted reference range : 0.0 - 10.0 /100 WBCs. The refer ence range was not u sed to interpret th is result as normal/abnormal . NRBC x10^3 (test code See_Comment [Auto mated = 5168229373) message] The s ystem which generated this result transmitted reference range : 10*3/?L. The reference range was not used to interpret this result as normal/abnormal . GRAN MAT (NEUT) % 53.7 % (test code = 770-8) IMM GRAN % (test code 1.90 % = 8481684067) LYMPH % (test code = 29.6 % 736-9) MONO % (test code = 8.1 % 5905-5) EOS % (test code = 5.7 % 713-8) BASO % (test code = 1.0 % 706-2) GRAN MAT x10^3(ANC) 4.44 10*3/uL 1.99-6.95 (test code = 5262981413) IMM GRAN x10^3 (test 0.16 10*3/uL 0.00-0.06 H code = 0588920210) LYMPH x10^3 (test code 2.45 10*3/uL 1.09-3.23 = 731-0) MONO x10^3 (test code 0.67 10*3/uL 0.36-1.02 = 742-7) EOS x10^3 (test code = 0.47 10*3/uL 0.06-0.53 711-2) BASO x10^3 (test code 0.08 10*3/uL 0.01-0.09 = 704-7) Lab Interpretation Abnormal (test code = 20996-7) [facility] WITH [id number] 15:09:40 Test Item Value Reference Range Interpretation [...] RDW-SD (test code = 47.6 fL 38.5-51.6 28089-4) RDW-CV (test code = 14.7 % 12.1-15.4 788-0) PLT (test code = 252 See_Comment [Automated 777-3) message] The sy stem which generated this result transmitted reference range : 150 - 328 10*3/ ?L. The reference r mitra was not used to interpret this result as normal/abnormal . MPV (test code = 9.1 fL 9.8-13.0 L 73489-4) NRBC/100 WBC (test 0.0 See_Comment [Automat ed code = 6961069819) message] The system which generated this result transmitted reference range : 0.0 - 10.0 /100 WBCs. The refer ence range was not u sed to interpret th is result as normal/abnormal . NRBC x10^3 (test code See_Comment [Auto mated = 1664080246) message] The s ystem which generated this result transmitted reference range : 10*3/?L. The reference range was not used to interpret this result as normal/abnormal . GRAN MAT (NEUT) % 53.7 % (test code = 770-8) IMM GRAN % (test code 1.90 % = 3098480523) LYMPH % (test code = 29.6 % 736-9) MONO % (test code = 8.1 % 5905-5) EOS % (test code = 5.7 % 713-8) BASO % (test code = 1.0 % 706-2) GRAN MAT x10^3(ANC) 4.44 10*3/uL 1.99-6.95 (test code = 6575407556) IMM GRAN x10^3 (test 0.16 10*3/uL 0.00-0.06 H code = 2499584245) LYMPH x10^3 (test code 2.45 10*3/uL 1.09-3.23 = 731-0) MONO x10^3 (test code 0.67 10*3/uL 0.36-1.02 = 742-7) EOS x10^3 (test code = 0.47 10*3/uL 0.06-0.53 711-2) BASO x10^3 (test code 0.08 10*3/uL 0.01-0.09 = 704-7) Lab Interpretation Abnormal (test code = 90320-2) [facility] (for use with Heparin Infusion)2022-05-29 11:36:15 Test Item Value Reference Range Interpretation Comments APTT Patient (test code 52 See_Comment H [Au tomated message] = 3173-2) The system [employer] generated this result transmitted ref erence range: 26 - 36 Seconds. The reference range was not used to int erpret this result as normal/abnormal . Lab Interpretation (test Abnormal code = 99879-1) [facility] (for use with Heparin Infusion)2022-05-29 11:36:15 Test Item Value Reference Range Interpretation Comments APTT Patient (test code 52 See_Comment H [Au tomated message] = 3173-2) The system [employer] generated this result transmitted ref erence range: 26 - 36 Seconds. The reference range was not used to int erpret this result as normal/abnormal . Lab Interpretation (test Abnormal code = 86543-8) [facility] (for use with Heparin Infusion)2022-05-29 11:36:15 Test Item Value Reference Range Interpretation Comments APTT Patient (test code 52 See_Comment H [Au tomated message] = 3173-2) The system [employer] generated this result transmitted ref erence range: 26 - 36 Seconds. The reference range was not used to int erpret this result as normal/abnormal . Lab Interpretation (test Abnormal code = 16345-2) [facility] (for use with Heparin Infusion)2022-05-29 11:36:15 Test Item Value Reference Range Interpretation Comments APTT Patient (test code 52 See_Comment H [Au tomated message] = 3173-2) The system [employer] generated this result transmitted ref erence range: 26 - 36 Seconds. The reference range was not used to int erpret this result as normal/abnormal . Lab Interpretation (test Abnormal code = 85136-5) [facility] METABOLIC PANEL (NA, K, CL, CO2, GLUCOSE, BUN, CREATININE, CA)2022-05-29 11:35:55 Test Item Value Reference Range Interpretation Comments NA (test code = 136 mmol/L 135-145 1992282995) K (test code = 4.9 mmol/L 3.5-5.0 Slight 6140171037) hemolysis CL (test code = 106 mmol/L 98-108 2480027692) CO2 TOTAL (test code 28 mmol/L 23-31 = 7519639944) AGAP (test code = 2 2-16 3548232005) BUN (test code = 26 mg/dL 7-23 H Slight 0267328807) hemolysis GLUCOSE (test code = 88 mg/dL 70-110 6760026268) CREATININE (test code 0.86 mg/dL 0.60-1.25 = 5838499631) CALCIUM (test code = 8.4 mg/dL 8.6-10.6 L 1722414174) eGFR (test code = 91.0 mL/min/1.73m2 4325613530) DEWAYNE (test code = DEWAYNE) Association of [...] tests). Lab Interpretation Abnormal (test code = 20669-7) [facility] Test Item Value Reference Range Interpretation Comments MAGNESIUM (test code = 8361753697) 2.4 mg/dL 1.7-2.4 Lab Interpretation (test code = Normal 26599-4) [facility] (NA, K, CL, CO2, GLUCOSE, BUN, CREATININE, CA)2022-05-29 11:35:55 Test Item Value Reference Range Interpretation Comments NA (test code = 136 mmol/L 135-145 9740919428) K (test code = 4.9 mmol/L 3.5-5.0 Slight 7527396133) hemolysis CL (test code = 106 mmol/L 98-108 4039818941) CO2 TOTAL (test code 28 mmol/L 23-31 = 0302731546) AGAP (test code = 2 2-16 6863417214) BUN (test code = 26 mg/dL 7-23 H Slight 9512098484) hemolysis GLUCOSE (test code = 88 mg/dL 70-110 9685625150) CREATININE (test code 0.86 mg/dL 0.60-1.25 = 2209110177) CALCIUM (test code = 8.4 mg/dL 8.6-10.6 L 2160465326) eGFR (test code = 91.0 mL/min/1.73m2 9763624828) DEWAYNE (test code = DEWAYNE) Association of [...] tests). Lab Interpretation Abnormal (test code = 84769-5) [facility]55 Test Item Value Reference Range Interpretation Comments MAGNESIUM (test code = 2655073940) 2.4 mg/dL 1.7-2.4 Lab Interpretation (test code = Normal 23728-4) [facility] (NA, K, CL, CO2, GLUCOSE, BUN, CREATININE, CA)2022-05-29 11:35:55 Test Item Value Reference Range Interpretation Comments NA (test code = 136 mmol/L 135-145 1514062940) K (test code = 4.9 mmol/L 3.5-5.0 Slight 9539526915) hemolysis CL (test code = 106 mmol/L 98-108 5434251047) CO2 TOTAL (test code 28 mmol/L 23-31 = 5740914353) AGAP (test code = 2 2-16 0643837754) BUN (test code = 26 mg/dL 7-23 H Slight 6235435792) hemolysis GLUCOSE (test code = 88 mg/dL 70-110 9241845518) CREATININE (test code 0.86 mg/dL 0.60-1.25 = 4521274570) CALCIUM (test code = 8.4 mg/dL 8.6-10.6 L 8200430849) eGFR (test code = 91.0 mL/min/1.73m2 3291601171) DEWAYNE (test code = DEWAYNE) Association of [...] tests). Lab Interpretation Abnormal (test code = 88242-3) [facility] 11:35:55 Test Item Value Reference Range Interpretation Comments MAGNESIUM (test code = 4992797938) 2.4 mg/dL 1.7-2.4 Lab Interpretation (test code = Normal 09682-7) [facility] (NA, K, CL, CO2, GLUCOSE, BUN, CREATININE, CA)2022-05-29 11:35:55 Test Item Value Reference Range Interpretation Comments NA (test code = 136 mmol/L 135-145 5887300495) K (test code = 4.9 mmol/L 3.5-5.0 Slight 9517281836) hemolysis CL (test code = 106 mmol/L 98-108 0803428846) CO2 TOTAL (test code 28 mmol/L 23-31 = 4829064313) AGAP (test code = 2 2-16 6183759034) BUN (test code = 26 mg/dL 7-23 H Slight 1275143088) hemolysis GLUCOSE (test code = 88 mg/dL 70-110 8138770267) CREATININE (test code 0.86 mg/dL 0.60-1.25 = 7669589676) CALCIUM (test code = 8.4 mg/dL 8.6-10.6 L 5655177058) eGFR (test code = 91.0 mL/min/1.73m2 1909589903) DEWAYNE (test code = DEWAYNE) Association of [...] tests). Lab Interpretation Abnormal (test code = 66020-5) [facility] 11:35:55 Test Item Value Reference Range Interpretation Comments MAGNESIUM (test code = 7176855027) 2.4 mg/dL 1.7-2.4 Lab Interpretation (test code = Normal 74943-6) [facility] Without [id number] 11:28:31 Test Item Value Reference Range Interpretation Comments WBC (test code = 6690-2) 7.81 See_Comment [A utomated message] The system [employer] generated this result transmit elizabeth reference range : 4.20 - 10.70 10*3/?L. The reference range was not used to interpret this result as normal/abnormal . RBC (test code = 789-8) 4.04 See_Comment L [Au tomated message] The system [employer] generated this result transmit elizabeth reference range [...] 252 See_Comment [Au tomated message] The system [employer] generated this result transmit elizabeth reference range : 150 - 328 10*3/?L. The reference range was not used to interpret this result as normal/abnormal . MPV (test code = 9.6 fL 9.8-13.0 L 71083-3) RDW-CV (test code = 14.6 % 12.1-15.4 788-0) RDW-SD (test code = 46.5 fL 38.5-51.6 83251-2) NRBC x10^3 (test code = See_Comment [Au tomated message] 1317872044) The system [employer] generated this result transmit elizabeth reference range : 10*3/?L. The reference range was not used to interpret this result as normal/abnormal . NRBC/100 WBC (test code 0.0 See_Comment [Au tomated message] = 8353995716) The system [facility] generated this result transmit elizabeth reference range : 0.0 - 10.0 /100 WBC s. The reference r mitra was not used to interpret this result as normal/abnormal . IPF % (test code = 0426333215) Lab Interpretation (test Abnormal code = 58897-7) [facility] Without [id number] 11:28:31 Test Item Value Reference Range Interpretation Comments WBC (test code = 6690-2) 7.81 See_Comment [A utomated message] The system [employer] generated this result transmit elizabeth reference range : 4.20 - 10.70 10*3/?L. The reference range was not used to interpret this result as normal/abnormal . RBC (test code = 789-8) 4.04 See_Comment L [Au tomated message] The system [employer] generated this result transmit elizabeth reference range [...] 252 See_Comment [Au tomated message] The system [employer] generated this result transmit elizabeth reference range : 150 - 328 10*3/?L. The reference range was not used to interpret this result as normal/abnormal . MPV (test code = 9.6 fL 9.8-13.0 L 27235-1) RDW-CV (test code = 14.6 % 12.1-15.4 788-0) RDW-SD (test code = 46.5 fL 38.5-51.6 58470-4) NRBC x10^3 (test code = See_Comment [Au tomated message] 4727553281) The system [employer] generated this result transmit elizabeth reference range : 10*3/?L. The reference range was not used to interpret this result as normal/abnormal . NRBC/100 WBC (test code 0.0 See_Comment [Au tomated message] = 4022695555) The system [facility] generated this result transmit elizabeth reference range : 0.0 - 10.0 /100 WBC s. The reference r mitra was not used to interpret this result as normal/abnormal . IPF % (test code = 4196638768) Lab Interpretation (test Abnormal code = 11238-6) [facility] Without [id number] 11:28:31 Test Item Value Reference Range Interpretation Comments WBC (test code = 6690-2) 7.81 See_Comment [A utomated message] The system [employer] generated this result transmit elizabeth reference range : 4.20 - 10.70 10*3/?L. The reference range was not used to interpret this result as normal/abnormal . RBC (test code = 789-8) 4.04 See_Comment L [Au tomated message] The system [employer] generated this result transmit elizabeth reference range [...] 252 See_Comment [Au tomated message] The system [employer] generated this result transmit elizabeth reference range : 150 - 328 10*3/?L. The reference range was not used to interpret this result as normal/abnormal . MPV (test code = 9.6 fL 9.8-13.0 L 37852-8) RDW-CV (test code = 14.6 % 12.1-15.4 788-0) RDW-SD (test code = 46.5 fL 38.5-51.6 45501-8) NRBC x10^3 (test code = See_Comment [Au tomated message] 6114314028) The system [employer] generated this result transmit elizabeth reference range : 10*3/?L. The reference range was not used to interpret this result as normal/abnormal . NRBC/100 WBC (test code 0.0 See_Comment [Au tomated message] = 6681002913) The system [facility] generated this result transmit elizabeth reference range : 0.0 - 10.0 /100 WBC s. The reference r mitra was not used to interpret this result as normal/abnormal . IPF % (test code = 0630330264) Lab Interpretation (test Abnormal code = 06828-8) [facility] Without [id number] 11:28:31 Test Item Value Reference Range Interpretation Comments WBC (test code = 6690-2) 7.81 See_Comment [A utomated message] The system [employer] generated this result transmit elizabeth reference range : 4.20 - 10.70 10*3/?L. The reference range was not used to interpret this result as normal/abnormal . RBC (test code = 789-8) 4.04 See_Comment L [Au tomated message] The system [employer] generated this result transmit elizabeth reference range [...] 252 See_Comment [Au tomated message] The system [facility] generated this result transmit elizabeth reference range : 150 - 328 10*3/?L. The reference range was not used to interpret this result as normal/abnormal . MPV (test code = 9.6 fL 9.8-13.0 L 51035-0) RDW-CV (test code = 14.6 % 12.1-15.4 788-0) RDW-SD (test code = 46.5 fL 38.5-51.6 13547-7) NRBC x10^3 (test code = See_Comment [Au tomated message] 3525626261) The system [facility] [employer] generated this result transmit elizabeth reference range : 10*3/?L. The reference range was not used to interpret this result as normal/abnormal . NRBC/100 WBC (test code 0.0 See_Comment [Au tomated message] = 9101675799) The system [facility] generated this result transmit elizabeth reference range : 0.0 - 10.0 /100 WBC s. The reference r mitra was not used to interpret this result as normal/abnormal . IPF % (test code = 6164574403) Lab Interpretation (test Abnormal code = 94855-6) [facility] [id number] [id number] 18:45:15 Test Item Value Reference Range Interpretation Comments Factor 2 [id number] Heterozygous Normal Mutation (test code = 4935556565) DEWAYNE (test code = Phenotype DEWAYNE) Characteristics: [...] further increased for homozygotes. Mutation Tested: F2 c.20967N>A (V17442N). Clinical Sensitivity for Venous Thrombosis: Approximately 10%. Methodology: Polymerase chain reaction and fluorescence monitoring Limitations: The performance of this assay has not been evaluated with samples from pediatric patients. Counseling and informed consent are recommended for genetic testing. References: OMIM: 228132 [email or web address].gov/c ondition/prothrombin-thro mbophilia [facility] [id number] 18:45:15 Test Item Value Reference Range Interpretation Comments FACTOR 5 LEIDEN Heterozygous Normal (test code = 6904074391) DEWAYNE (test code = Phenotype Characteristics: DEWAYNE) [...] the Factor 5 Leiden mutation is c.1601G>A (p.Qko323Klw). Methodology: Polymerase chain reaction and fluorescence monitoring. Limitations: Rare Factor V mutations (E3346H, Z9382J, and B4806I) and any additional SNPs in the probe binding region may interfere with the target detection and yield an INVALID result. The performance of this assay has not been evaluated with samples from pediatric patients. Counseling and informed consent are recommended for genetic testing. References: OMIM: 405367 https://ghr.nlm.nih.gov/co ndition/eyqzzl-e-uoynnv-th rombophilia [facility] C91833G [id number] 18:45:15 Test Item Value Reference Range Interpretation Comments Factor 2 D51407B Heterozygous Normal Mutation (test code = 5274445975) DEWAYNE (test code = Phenotype DEWAYNE) Characteristics: [...] further increased for homozygotes. Mutation Tested: F2 c.88461B>A (I78209C). Clinical Sensitivity for Venous Thrombosis: Approximately 10%. Methodology: Polymerase chain reaction and fluorescence monitoring Limitations: The performance of this assay has not been evaluated with samples from pediatric patients. Counseling and informed consent are recommended for genetic testing. References: OMIM: 714446 [email or web address]://ghr.nlm.nih.gov/c ondition/prothrombin-thro mbophilia [facility] [id number] 18:45:15 Test Item Value Reference Range Interpretation Comments FACTOR 5 LEIDEN Heterozygous Normal (test code = 5721066135) DEWAYNE (test code = Phenotype Characteristics: DEWAYNE) [...] the Factor 5 Leiden mutation is c.1601G>A (p.Tqz068Qol). Methodology: Polymerase chain reaction and fluorescence monitoring. Limitations: Rare Factor V mutations (H0497Q, I0254J, and F6495D) and any additional SNPs in the probe binding region may interfere with the target detection and yield an INVALID result. The performance of this assay has not been evaluated with samples from pediatric patients. Counseling and informed consent are recommended for genetic testing. References: OMIM: 937393 https://ghr.nlm.nih.gov/co ndition/pjrvij-q-bfrkqy-th rombophilia [facility] C24012H [id number] 18:45:15 Test Item Value Reference Range Interpretation Comments Factor 2 Z90019X Heterozygous Normal Mutation (test code = 6632550739) DEWAYNE (test code = Phenotype DEWAYNE) Characteristics: [...] further increased for homozygotes. Mutation Tested: F2 c.27953U>A (V35144Q). Clinical Sensitivity for Venous Thrombosis: Approximately 10%. Methodology: Polymerase chain reaction and fluorescence monitoring Limitations: The performance of this assay has not been evaluated with samples from pediatric patients. Counseling and informed consent are recommended for genetic testing. References: OMIM: 406900 https://ghr.nlm.nih.gov/c ondition/prothrombin-thro mbophilia [facility] [id number] 18:45:15 Test Item Value Reference Range Interpretation Comments FACTOR 5 LEIDEN Heterozygous Normal (test code = 6924717104) DEWAYNE (test code = Phenotype Characteristics: DEWAYNE) [...] the Factor 5 Leiden mutation is c.1601G>A (p.Uce228Xre). Methodology: Polymerase chain reaction and fluorescence monitoring. Limitations: Rare Factor V mutations (Q2148X, G3072U, and V0293C) and any additional SNPs in the probe binding region may interfere with the target detection and yield an INVALID result. The performance of this assay has not been evaluated with samples from pediatric patients. Counseling and informed consent are recommended for genetic testing. References: OMIM: 558549 https://ghr.nlm.nih.gov/co ndition/kztvlo-s-lebltj- rombophilia [facility] C77932E [id number] 18:45:15 Test Item Value Reference Range Interpretation Comments Factor 2 T83582T Heterozygous Normal Mutation (test code = 0155499623) DEWAYNE (test code = Phenotype DEWAYNE) Characteristics: [...] further increased for homozygotes. Mutation Tested: F2 c.81538T>A (K72132K). Clinical Sensitivity for Venous Thrombosis: Approximately 10%. Methodology: Polymerase chain reaction and fluorescence monitoring Limitations: The performance of this assay has not been evaluated with samples from pediatric patients. Counseling and informed consent are recommended for genetic testing. References: OMIM: 997706 https://ghr.nlm.nih.gov/c ondition/prothrombin-thro mbophilia [facility] [id number] 18:45:15 Test Item Value Reference Range Interpretation Comments FACTOR 5 LEIDEN Heterozygous Normal (test code = 2931753022) DEWAYNE (test code = Phenotype Characteristics: DEWAYNE) [...] the Factor 5 Leiden mutation is c.1601G>A (p.Udk513Mht). Methodology: Polymerase chain reaction and fluorescence monitoring. Limitations: Rare Factor V mutations (U8056C, Y7132H, and S5076Z) and any additional SNPs in the probe binding region may interfere with the target detection and yield an INVALID result. The performance of this assay has not been evaluated with samples from pediatric patients. Counseling and informed consent are recommended for genetic testing. References: OMIM: 638634 https://ghr.nlm.nih.gov/co ndition/pygpur-v-[facility] (NA, K, CL, CO2, GLUCOSE, BUN, CREATININE, CA)2022-05-28 09:52:42 Test Item Value Reference Range Interpretation Comments NA (test code = 137 mmol/L 135-145 8672945547) K (test code = 3.8 mmol/L 3.5-5.0 3859770718) CL (test code = 103 mmol/L 98-108 9507702000) CO2 TOTAL (test code = 27 mmol/L 23-31 4971985708) AGAP (test code = 7 2-16 0207604094) BUN (test code = 27 mg/dL 7-23 H 3373404152) GLUCOSE (test code = 105 mg/dL 70-110 4535410246) CREATININE (test code = 0.84 mg/dL 0.60-1.25 1588819461) CALCIUM (test code = 8.5 mg/dL 8.6-10.6 L 6714194150) eGFR (test code = 93.5 mL/min/1.73m2 3106322631) DEWAYNE (test code = DEWAYNE) Association of [...] tests). Lab Interpretation Abnormal (test code = 40956-7) [facility] METABOLIC PANEL (NA, K, CL, CO2, GLUCOSE, BUN, CREATININE, CA)2022-05-28 09:52:42 Test Item Value Reference Range Interpretation Comments NA (test code = 137 mmol/L 135-145 7452674848) K (test code = 3.8 mmol/L 3.5-5.0 4932306258) CL (test code = 103 mmol/L 98-108 3500859632) CO2 TOTAL (test code = 27 mmol/L 23-31 8196838122) AGAP (test code = 7 2-16 8790198194) BUN (test code = 27 mg/dL 7-23 H 0463216153) GLUCOSE (test code = 105 mg/dL 70-110 7346670321) CREATININE (test code = 0.84 mg/dL 0.60-1.25 6189674713) CALCIUM (test code = 8.5 mg/dL 8.6-10.6 L 7218024771) eGFR (test code = 93.5 mL/min/1.73m2 4975385148) DEWAYNE (test code = DEWAYNE) Association of [...] tests). Lab Interpretation Abnormal (test code = 02075-5) [facility] METABOLIC PANEL (NA, K, CL, CO2, GLUCOSE, BUN, CREATININE, CA)2022-05-28 09:52:42 Test Item Value Reference Range Interpretation Comments NA (test code = 137 mmol/L 135-145 2966001424) K (test code = 3.8 mmol/L 3.5-5.0 4864979193) CL (test code = 103 mmol/L 98-108 5025143943) CO2 TOTAL (test code = 27 mmol/L 23-31 8773859273) AGAP (test code = 7 2-16 7592457158) BUN (test code = 27 mg/dL 7-23 H 5981461733) GLUCOSE (test code = 105 mg/dL 70-110 0049875690) CREATININE (test code = 0.84 mg/dL 0.60-1.25 7485021635) CALCIUM (test code = 8.5 mg/dL 8.6-10.6 L 3738673501) eGFR (test code = 93.5 mL/min/1.73m2 0973852655) DEWAYNE (test code = DEWAYNE) Association of [...] tests). Lab Interpretation Abnormal (test code = 00955-4) [facility] METABOLIC PANEL (NA, K, CL, CO2, GLUCOSE, BUN, CREATININE, CA)2022-05-28 09:52:42 Test Item Value Reference Range Interpretation Comments NA (test code = 137 mmol/L 135-145 5340635139) K (test code = 3.8 mmol/L 3.5-5.0 4884083132) CL (test code = 103 mmol/L 98-108 0661327164) CO2 TOTAL (test code = 27 mmol/L 23-31 0183755098) AGAP (test code = 7 2-16 8828585736) BUN (test code = 27 mg/dL 7-23 H 4503758712) GLUCOSE (test code = 105 mg/dL 70-110 5518838458) CREATININE (test code = 0.84 mg/dL 0.60-1.25 5577281415) CALCIUM (test code = 8.5 mg/dL 8.6-10.6 L 6685967182) eGFR (test code = 93.5 mL/min/1.73m2 5371082835) DEWAYNE (test code = DEWAYNE) Association of [...] tests). Lab Interpretation Abnormal (test code = 68503-9) [facility] WITH [id number] 09:29:20 Test Item Value Reference Range Interpretation Comments WBC (test code = 8.34 See_Comment [Automated 2896-2) message] The sy stem which generated this result transmitted reference range : 4.20 - 10.70 10*3/?L. The reference range was not used to interpret this result as normal/abnormal . RBC (test code = 4.08 See_Comment L [Automated 849-8) message] The sy stem which generated this [...] RDW-SD (test code = 44.7 fL 38.5-51.6 74758-9) RDW-CV (test code = 14.5 % 12.1-15.4 788-0) PLT (test code = 199 See_Comment [Automated 777-3) message] The sy stem which generated this result transmitted reference range : 150 - 328 10*3/ ?L. The reference r mitra was not used to interpret this result as normal/abnormal . MPV (test code = 9.3 fL 9.8-13.0 L 51482-2) NRBC/100 WBC (test 0.0 See_Comment [Automat ed code = [id number]) message] The system which generated this result transmitted reference range : 0.0 - 10.0 /100 WBCs. The refer ence range was not u sed to interpret th is result as normal/abnormal . NRBC x10^3 (test code See_Comment [Auto mated = [id number]) message] The s ystem which generated this result transmitted reference range : 10*3/?L. The reference range was not used to interpret this result as normal/abnormal . GRAN MAT (NEUT) % 56.1 % (test code = 770-8) IMM GRAN % (test code 1.20 % = 4536191048) LYMPH % (test code = 30.8 % 736-9) MONO % (test code = 7.6 % 5905-5) EOS % (test code = 3.7 % 713-8) BASO % (test code = 0.6 % 706-2) GRAN MAT x10^3(ANC) 4.68 10*3/uL 1.99-6.95 (test code = 7309709856) IMM GRAN x10^3 (test 0.10 10*3/uL 0.00-0.06 H code = 2541166563) LYMPH x10^3 (test code 2.57 10*3/uL 1.09-3.23 = 731-0) MONO x10^3 (test code 0.63 10*3/uL 0.36-1.02 = 742-7) EOS x10^3 (test code = 0.31 10*3/uL 0.06-0.53 711-2) BASO x10^3 (test code 0.05 10*3/uL 0.01-0.09 = 704-7) Lab Interpretation Abnormal (test code = 76142-7) [facility] WITH [id number] 09:29:20 Test Item Value Reference Range Interpretation [...] RDW-SD (test code = 44.7 fL 38.5-51.6 11691-2) RDW-CV (test code = 14.5 % 12.1-15.4 788-0) PLT (test code = 199 See_Comment [Automated 777-3) message] The sy stem which generated this result transmitted reference range : 150 - 328 10*3/ ?L. The reference r mitra was not used to interpret this result as normal/abnormal . MPV (test code = 9.3 fL 9.8-13.0 L 71613-4) NRBC/100 WBC (test 0.0 See_Comment [Automat ed code = 1008373461) message] The system which generated this result transmitted reference range : 0.0 - 10.0 /100 WBCs. The refer ence range was not u sed to interpret th is result as normal/abnormal . NRBC x10^3 (test code See_Comment [Auto mated = [id number]) message] The s ystem which generated this result transmitted reference range : 10*3/?L. The reference range was not used to interpret this result as normal/abnormal . GRAN MAT (NEUT) % 56.1 % (test code = 770-8) IMM GRAN % (test code 1.20 % = 1177910747) LYMPH % (test code = 30.8 % 736-9) MONO % (test code = 7.6 % 5905-5) EOS % (test code = 3.7 % 713-8) BASO % (test code = 0.6 % 706-2) GRAN MAT x10^3(ANC) 4.68 10*3/uL 1.99-6.95 (test code = 1854786375) IMM GRAN x10^3 (test 0.10 10*3/uL 0.00-0.06 H code = 3202213913) LYMPH x10^3 (test code 2.57 10*3/uL 1.09-3.23 = 731-0) MONO x10^3 (test code 0.63 10*3/uL 0.36-1.02 = 742-7) EOS x10^3 (test code = 0.31 10*3/uL 0.06-0.53 711-2) BASO x10^3 (test code 0.05 10*3/uL 0.01-0.09 = 704-7) Lab Interpretation Abnormal (test code = 51522-4) [facility] WITH [id number] 09:29:20 Test Item Value Reference Range Interpretation Comments WBC (test code = 8.34 See_Comment [Automated 6690-2) message] The sy stem which generated this result transmitted reference range : 4.20 - 10.70 10*3/?L. The reference range was not used to interpret this result as normal/abnormal . RBC (test code = 4.08 See_Comment L [Automated 099-8) message] The sy stem which generated this [...] RDW-SD (test code = 44.7 fL 38.5-51.6 28841-3) RDW-CV (test code = 14.5 % 12.1-15.4 788-0) PLT (test code = 199 See_Comment [Automated 777-3) message] The sy stem which generated this result transmitted reference range : 150 - 328 10*3/ ?L. The reference r mitra was not used to interpret this result as normal/abnormal . MPV (test code = 9.3 fL 9.8-13.0 L 12434-5) NRBC/100 WBC (test 0.0 See_Comment [Automat ed code = 1196905293) message] The system which generated this result transmitted reference range : 0.0 - 10.0 /100 WBCs. The refer ence range was not u sed to interpret th is result as normal/abnormal . NRBC x10^3 (test code See_Comment [Auto mated = 5953091824) message] The s ystem which generated this result transmitted reference range : 10*3/?L. The reference range was not used to interpret this result as normal/abnormal . GRAN MAT (NEUT) % 56.1 % (test code = 770-8) IMM GRAN % (test code 1.20 % = 6937607258) LYMPH % (test code = 30.8 % 736-9) MONO % (test code = 7.6 % 5905-5) EOS % (test code = 3.7 % 713-8) BASO % (test code = 0.6 % 706-2) GRAN MAT x10^3(ANC) 4.68 10*3/uL 1.99-6.95 (test code = 1339942142) IMM GRAN x10^3 (test 0.10 10*3/uL 0.00-0.06 H code = 3566219392) LYMPH x10^3 (test code 2.57 10*3/uL 1.09-3.23 = 731-0) MONO x10^3 (test code 0.63 10*3/uL 0.36-1.02 = 742-7) EOS x10^3 (test code = 0.31 10*3/uL 0.06-0.53 711-2) BASO x10^3 (test code 0.05 10*3/uL 0.01-0.09 = 704-7) Lab Interpretation Abnormal (test code = 15547-7) [facility] WITH [id number] 09:29:20 Test Item Value Reference Range Interpretation Comments WBC (test code = 8.34 See_Comment [Automated 4790-2) message] The sy stem which generated this result transmitted reference range : 4.20 - 10.70 10*3/?L. The reference range was not used to interpret this result as normal/abnormal . RBC (test code = 4.08 See_Comment L [Automated 109-8) message] The sy [...] RDW-SD (test code = 44.7 fL 38.5-51.6 27951-8) RDW-CV (test code = 14.5 % 12.1-15.4 788-0) PLT (test code = 199 See_Comment [Automated 777-3) message] The sy stem which generated this result transmitted reference range : 150 - 328 10*3/ ?L. The reference r mitra was not used to interpret this result as normal/abnormal . MPV (test code = 9.3 fL 9.8-13.0 L 27740-7) NRBC/100 WBC (test 0.0 See_Comment [Automat ed code = 1064985863) message] The system which generated this result transmitted reference range : 0.0 - 10.0 /100 WBCs. The refer ence range was not u sed to interpret th is result as normal/abnormal . NRBC x10^3 (test code See_Comment [Auto mated = 8784582212) message] The s ystem which generated this result transmitted reference range : 10*3/?L. The reference range was not used to interpret this result as normal/abnormal . GRAN MAT (NEUT) % 56.1 % (test code = 770-8) IMM GRAN % (test code 1.20 % = 0540552741) LYMPH % (test code = 30.8 % 736-9) MONO % (test code = 7.6 % 5905-5) EOS % (test code = 3.7 % 713-8) BASO % (test code = 0.6 % 706-2) GRAN MAT x10^3(ANC) 4.68 10*3/uL 1.99-6.95 (test code = 5868999253) IMM GRAN x10^3 (test 0.10 10*3/uL 0.00-0.06 H code = 7681620488) LYMPH x10^3 (test code 2.57 10*3/uL 1.09-3.23 = 731-0) MONO x10^3 (test code 0.63 10*3/uL 0.36-1.02 = 742-7) EOS x10^3 (test code = 0.31 10*3/uL 0.06-0.53 711-2) BASO x10^3 (test code 0.05 10*3/uL 0.01-0.09 = 704-7) Lab Interpretation Abnormal (test code = 81796-6) [facility] [id number] 04:20:00 Test Item Value Reference Interpretation Comments Range Levetiracetam 4.1 ug/mL 10.0-40.0 A This test was developed and (Julissa Cisneros (test its perfor fritz code = KEPPRA.L) characteris ticsdetermined by [facility]. It has not been cleared orappro mannie by the Food and Drug Administration. Performed at: [facility] [id number] [place], [place] [id number] Di shahid: Miriam Sevilla MD, Ph one: [phone] Drug Screen,[id number] 20:40:00 Test Item Value Reference Range Interpretation [...] Negative Negative code = UPROP) Comprehensive Metabolic Reoth7095-22-49 19:50:00 Test Item Value Reference Range Interpretation [...] 47 U/L 46-116 N = ALP) Troponin [id number] 19:50:00 Test Item Value Reference Range Interpretation [...] 99th percentile in serialmeasureme nts. Prothrombin Time [id number] 19:50:00 Test Item Value Reference Range Interpretation Comments Prothrombin Time (test code = 10.9 Seconds 9.8-13.4 N PT) INR (test code = INR) 1.0 ratio 0.6-1.2 N Partial Thromboplastin [id number] 19:50:00 Test Item Value Reference Range Interpretation Comments Partial Thromboplastin Time 20.00 Seconds 24.39-37.25 L (test code = PTT) Complete Blood Count Auto [id number] 19:50:00 Test Item Value Reference Range Interpretation [...] code = NRBCP) 0 % B-Type Natriuretic Xtxcvri4000-36-60 19:50:00 Test Item Value Reference Range Interpretation Comments B-Type Natriuretic Peptide (test 30.2 pg/mL 0.0-99.9 N code = BNP) SARS-CoV-2 (COVID-19) RNA [Presence] in Respiratory specimen by COOPER with probe hfmdkwwbn7570-60-22 03:31:41 Test Item Value Reference Range Interpretation Comments SARS-CoV-2 (COVID-19) RNA Not detected Not-Detected [Presence] in Respiratory specimen by COOPER with probe detection (test code = 87295-9) [facility] Met[facility] [id number] 20:19:00 Test Item Value Reference Range Interpretation [...] ://nkd [email or web address] CT HEAD OR BRAIN WO CUITDEJB0847-27-49 18:19:40Location code: R 15HISTORY: Intracranial hemorrhageCOMPARISON: None.TECHNIQUE: [...] Unremarkable nonenhanced CT scan of the brain.Ammonia, Oozmg9419-15-97 12:35:00 Test Item Value Reference Range Interpretation Comments Ammonia (test code = NH3) 25.0 umol/L 11.0-35.0 N US DUPLX EXT VEINS COMPRS, [id number] 15:35:40ULTRASOUND: Bilateral lower extremity venous duplex sonography.History: [...] An IVC filter is in place.Impression:Unremarkable exam.Glycosylated Ofqpuagyxu7035-16-10 10:36:00 Test Item Value Reference Range Interpretation Comments HBA1c (test code = HBA1C) 5.1 % 4.8-5.9 N RPR, [id number] 12:10:00 Test Item Value Reference Range Interpretation Comments RPR (test code = RPR) Non-Reactive Non-Reactive N Thyroid Stimulating Hormone (TSH)2016-12-24 06:02:00 Test Item Value Reference Range Interpretation Comments TSH (test code = TSH) 1.03 mIU/mL 0.270-4.200 N Lipid Xxjwdwb2971-87-41 05:53:00 Test Item Value Reference Range Interpretation Comments Cholesterol (test 205 mg/dL 0-200 H code = CHOL) Triglycerides (test 69 mg/dL 9-200 N code = TRIG) HDL (test code = 68 mg/dL 40-60 H HDL) Chol/HDL (test code 3.0 Ratio 0.0-5.0 N = CHOLPHDL) LDL, Calculated 123 0-130 N (NOTE)RISK O F HEART (test code = LDLC) DISEASEPu blished by [place] Heart AssociationAnal yte Optimal Boderli ne Increased RiskC HOL <200 200-239 >240TRI G <150 150-199 >200HDL Male: >60 <40HDL Fema le: >60 <50LDL < 100 130-159 >160LDL NEAR OPTIMAL IS 100- 129 VLDL (test code = 14 mg/dL 5-40 N VLDL) LDL/HDL (test code = 2 LDLPHDL) Comprehensive Metabolic [id number] 18:42:00 Test Item Value Reference Range Interpretation [...] ars ofage have not been validated by lynnette elizabeth MDRD study and christopher reed be interpretedwith caution.eGFR Re sult Interpretation: eGFR > or = 60 is in t he Normal RangeeGF R < 60 may mean kidney diseaseeGFR < 1 5 may mean kidney failureRange s recommended by the National Kidney Foundation,http ://nkd ep.nih.gov CBC with Rapjsstywosz1510-68-85 17:59:00 Test Item Value Reference Range Interpretation [...] code = ALYMPH) 1.4 K/cumm 0.5-4.6 N [place] Abs (test code = AMONO) 0.9 K/cumm 0.0-1.2 N Eos Abs (test code = AEOS) 0.01 K/cumm 0.00-0.74 N Baso Abs (test code = ABASO) 0.0 K/cumm 0.00-0.21 N QWUGQYHLBYWQ7048-90-57 18:46:00 Test Item Value Reference Range Interpretation Comments B/C Ratio (test code = B/C Ratio) 18 6-25 [facility] CenterYpyifplVQEGPTQDZATP1530-43-52 18:46:00 Test Item Value Reference Range Interpretation Comments A/G Ratio (test code = A/G Ratio) 1.1 0.7-1.6 [facility] CenterWyiglifYFKXVLIYTAHL5949-07-85 18:46:00 Test Item Value Reference Range Interpretation Comments Globulin (test code = Globulin) 3.3 2.0-4.0 [facility] CenterEuoqcjhVBWRRKZUSURG2687-79-21 18:46:00 Test Item Value Reference Range Interpretation Comments eGFR (test code = eGFR) 99 [facility] CenterTormifwCGHFESAZHLKL0395-59-19 18:46:00 Test Item Value Reference Range Interpretation Comments Calcium Lvl (test code = Calcium Lvl) 9.0 8.5-10.5 [facility] CenterZwgwubeQIGYSSHTJLLG7658-80-90 18:46:00 Test Item Value Reference Range Interpretation Comments Chloride Lvl (test code = Chloride Lvl) 106 95-109 [facility] CenterNgwtzacSWRZKCIORLIH5051-51-37 18:46:00 Test Item Value Reference Range Interpretation Comments Creatinine Lvl (test code = Creatinine 0.9 0.5-1.4 Lvl) [facility] CenterPwzllixCMOWGWGHPFLV8063-48-45 18:46:00 Test Item Value Reference Range Interpretation Comments Potassium Lvl (test code = Potassium 4.2 3.5-5.1 Lvl) [facility] CenterCzztqakHKCTDNDZAGQH7387-89-16 18:46:00 Test Item Value Reference Range Interpretation Comments Sodium Lvl (test code = Sodium Lvl) 139 135-145 [facility] CenterSlrxjclIXVPRGMYHSFQ8407-83-05 18:46:00 Test Item Value Reference Range Interpretation Comments CO2 (test code = CO2) 24 24-32 [facility] CenterCzipsygQXJJMYPEDALZ6398-35-42 18:46:00 Test Item Value Reference Range Interpretation Comments BUN (test code = BUN) 16 7-22 [facility] CenterEjtpylyDKJQKIDRZXNE9585-39-03 18:46:00 Test Item Value Reference Range Interpretation Comments Glucose Lvl (test code = Glucose Lvl) 141 70-99 [facility] CenterXhlicruRPXIZXTTIPHV3536-52-21 18:46:00 Test Item Value Reference Range Interpretation Comments Albumin Lvl (test code = Albumin Lvl) 3.6 3.5-5.0 [facility] CenterOmpdfcpWTRYLVGMXELB0169-52-46 18:46:00 Test Item Value Reference Range Interpretation Comments Alk Phos (test code = Alk Phos) 65 39-136 [facility] CenterJhxkbhhTBAVANLNBBAL3730-33-06 18:46:00 Test Item Value Reference Range Interpretation Comments Bili Total (test code = Bili Total) 0.3 0.2-1.3 [facility] CenterJsnneygNZBARWRXSIVP9072-77-06 18:46:00 Test Item Value Reference Range Interpretation Comments ALT (test code = ALT) 100 See_Comment [Auto mated message] The system which ge nerated this result transmit elizabeth reference range : <=65. The reference range was not used to interpr et this result as margaret l/abnormal. [facility] CenterDuntdadFHMEWOCUSUUH3161-55-90 18:46:00 Test Item Value Reference Range Interpretation Comments AST (test code = AST) 53 See_Comment [Auto mated message] The system which ge nerated this result transmit elizabeth reference range : <=37. The reference range was not used to interpr et this result as margaret l/abnormal. [facility] CenterWdldioqQBJOVMIFCGEJ9086-63-40 18:46:00 Test Item Value Reference Range Interpretation Comments Total Protein (test code = Total 6.9 6.4-8.4 Protein) [facility] NorthwestNlhjlhhLYUFRCQNKO7871-98-48 18:46:00 Test Item Value Reference Range Interpretation Comments Eosinophils (test code = 4.2 See_Comment [A utomated message] The Eosinophils) system which ge nerated this result tra nsmitted reference range : <=4.0. The reference r mitra was not used to int erpret this result as normal/abnormal . [facility] NorthwestVrdfhumHJABURHUSN4914-37-63 18:46:00 Test Item Value Reference Range Interpretation Comments Segs (test code = Segs) 56.4 45.0-75.0 [facility] NorthwestXcdqkpvOSMPQIJCUK3951-23-72 18:46:00 Test Item Value Reference Range Interpretation Comments Monocytes (test code = Monocytes) 10.3 2.0-12.0 [facility] NorthwestAmkbdiqNOAUZRMQEW6810-67-04 18:46:00 Test Item Value Reference Range Interpretation Comments Lymphocytes (test code = Lymphocytes) 28.0 20.0-40.0 [facility] NorthwestXshhajmNYCVCGBSTZ1000-37-24 18:46:00 Test Item Value Reference Range Interpretation Comments Monocytes # (test code 0.5 See_Comment [Aut omated message] The = Monocytes #) system which generated this result tra nsmitted reference range : <=0.8. The reference r mitra was not used to int erpret this result as normal/abnormal . [facility] NorthwestQibupdfXUIQKNUJFC4448-57-89 18:46:00 Test Item Value Reference Range Interpretation Comments Basophils (test code = 1.1 See_Comment [Aut omated message] The Basophils) system which ge nerated this result tra nsmitted reference range : <=1.0. The reference r mitra was not used to int erpret this result as normal/abnormal . [facility] NorthwestUqgibndUUGEHGFDRP8364-57-02 18:46:00 Test Item Value Reference Range Interpretation Comments Lymphocytes # (test code = Lymphocytes 1.5 1.0-5.5 #) [facility] NorthwestIbbvvxpJVZLBGKBZT2247-31-00 18:46:00 Test Item Value Reference Range Interpretation Comments Segs-Bands # (test code = Segs-Bands #) 2.9 1.5-8.1 [facility] NorthwestQrqihgmFUEZALNCSM1898-76-76 18:46:00 Test Item Value Reference Range Interpretation Comments Eosinophils # (test code 0.2 See_Comment [A utomated message] The = Eosinophils #) system ic h generated this result tra nsmitted reference range : <=0.5. The reference r mitra was not used to int erpret this result as normal/abnormal . [facility] NorthwestUujubjzBOOYGFLJJN0725-55-21 18:46:00 Test Item Value Reference Range Interpretation Comments Basophils # (test code 0.1 See_Comment [Aut omated message] The = Basophils #) system which generated this result tra nsmitted reference range : <=0.2. The reference r mitra was not used to int erpret this result as normal/abnormal . [facility] NorthwestSodixsjEWFIWULPGI8093-88-14 18:46:00 Test Item Value Reference Range Interpretation Comments PT (test code = PT) 11.2 s 12.0-14.7 [facility] NorthwestBaubekzDZFGBSMIOU4495-66-16 18:46:00 Test Item Value Reference Range Interpretation Comments INR (test code = INR) 0.82 0.85-1.17 [facility] NorthwestBspabjeWRDAIEUIQQ2435-13-73 18:46:00 Test Item Value Reference Range Interpretation Comments PTT (test code = PTT) 28.6 s 22.9-35.8 [facility] NorthwestWobximgXAGLXBSVHY9688-81-42 18:46:00 Test Item Value Reference Range Interpretation Comments MPV (test code = MPV) 8.1 7.4-10.4 [facility] NorthwestGsswompLCIWOLLNFM6363-58-14 18:46:00 Test Item Value Reference Range Interpretation Comments Platelet (test code = Platelet) 301 133-450 [facility] NorthwestGnndmfjGRGZQGPLYV7499-35-44 18:46:00 Test Item Value Reference Range Interpretation Comments RDW (test code = RDW) 14.5 11.5-14.5 [facility] NorthwestKgqpktrOLVGKBIGPA7186-92-50 18:46:00 Test Item Value Reference Range Interpretation Comments RBC (test code = RBC) 4.84 4.70-6.10 [facility] NorthwestScmiupxRZGURDGIGH1340-37-85 18:46:00 Test Item Value Reference Range Interpretation Comments Hgb (test code = Hgb) 14.4 14.0-18.0 [facility] NorthwestWdflajvPOSIPPRPPF8152-57-05 18:46:00 Test Item Value Reference Range Interpretation Comments WBC (test code = WBC) 5.2 3.7-10.4 [facility] NorthwestGynebhlEVFVFPSNRO2622-76-45 18:46:00 Test Item Value Reference Range Interpretation Comments MCH (test code = MCH) 29.8 pg 27.0-31.0 [facility] NorthwestBzkzmfzSJELJPXTDS1419-41-18 18:46:00 Test Item Value Reference Range Interpretation Comments MCV (test code = MCV) 92.0 80.0-94.0 [facility] NorthwestUwozrgmVGDUMTFKZD0920-60-69 18:46:00 Test Item Value Reference Range Interpretation Comments Hct (test code = Hct) 44.5 42.0-54.0 [facility] NorthwestMfetpvpZKXIAIILFM4500-66-28 18:46:00 Test Item Value Reference Range Interpretation Comments MCHC (test code = MCHC) 32.4 32.0-36.0 [facility]tze[facility]ssTJHRGKMTGQ4113-[facility]-10 18:46:00 Test Item Value Reference Range Interpretation Comments [place]-Hep C Ab (test Negative *NA*(07/22/14 code = [place]-Hep C 1:46 PM) Ab) [facility] AND [id number] 18:46:00 Test Item Value Reference Range Interpretation Comments UA Urobilinogen (test code = UA <=1.0 mg/dL 0.1-1.0 Urobilinogen) [facility] AND [id number] 18:46:00 Test Item Value Reference Range Interpretation Comments UA Sq Epi (test code = UA Sq Epi) None Seen [facility] AND [id number] 18:46:00 Test Item Value Reference Range Interpretation Comments UA Leuk Est (test Negative (07/22/14 1:46 code = UA Leuk Est) PM) [facility] AND [id number] 18:46:00 Test Item Value Reference Range Interpretation Comments UA Nitrite (test code Negative (07/22/14 1:46 = UA Nitrite) PM) [facility] AND CMFYJ3650-89-42 18:46:00 Test Item Value Reference Range Interpretation Comments UA Blood (test code = Negative (07/22/14 1:46 UA Blood) PM) [facility] AND [id number] 18:46:00 Test Item Value Reference Range Interpretation Comments UA Ketones (test code = UA Negative mg/dL Ketones) [facility] AND QJQUU1158-71-95 18:46:00 Test Item Value Reference Range Interpretation Comments UA Bili (test code = Negative *NA*(07/22/14 UA Bili) 1:46 PM) [facility] AND [id number] 18:46:00 Test Item Value Reference Range Interpretation Comments UA Bacteria (test code = UA Occasional /HPF Bacteria) [facility] AND [id number] 18:46:00 Test Item Value Reference Range Interpretation Comments UA RBC (test code = no gt See_Comment [Automa elizabeth message] The UA RBC) system which ge nerated this result transmit elizabeth reference range : <=2. The reference range was not used to interpr et this result as margaret l/abnormal. [facility] AND [id number] 18:46:00 Test Item Value Reference Range Interpretation Comments UA WBC (test code = 1 See_Comment [Automa elizabeth message] The UA WBC) system which ge nerated this result transmit elizabeth reference range : <=5. The reference range was not used to interpr et this result as margaret l/abnormal. [facility] AND [id number] 18:46:00 Test Item Value Reference Range Interpretation Comments UA Glucose (test code = UA Glucose) 30 mg/dL [facility] AND [id number] 18:46:00 Test Item Value Reference Range Interpretation Comments UA Protein (test code = UA Negative mg/dL Protein) [facility] AND DAOQY0400-11-16 18:46:00 Test Item Value Reference Range Interpretation Comments UA pH (test code = UA pH) 6.5 5.0-8.0 [facility] AND [id number] 18:46:00 Test Item Value Reference Range Interpretation Comments UA Turbidity (test code = Clear (07/22/14 1:46 UA Turbidity) PM) [facility] AND [id number] 18:46:00 Test Item Value Reference Range Interpretation Comments UA Spec Grav (test code = UA Spec Grav) 1.010 [facility] AND [id number] 18:46:00 Test Item Value Reference Range Interpretation Comments UA Color (test code = Light Yellow UA Color) *NA*(07/22/14 1:46 PM) [facility] CKBRG0388-04-01 18:46:00 Test Item Value Reference Range Interpretation Comments Magnesium Lvl (test code = Magnesium 1.8 1.8-2.4 Lvl) [facility] CenterSgjcaraYYLITPCNMNXK3079-45-19 18:46:00 Test Item Value Reference Range Interpretation Comments AGAP (test code = AGAP) 13.2 10.0-20.0 [facility] CenterGnpnwtwZTMGRIHJNSTR2910-90-16 18:46:00 Test Item Value Reference Range Interpretation Comments B/C Ratio (test code = B/C Ratio) 18 6-25 [facility] CenterVhddyvnCLCKWPFXQFFP7425-83-84 18:46:00 Test Item Value Reference Range Interpretation Comments A/G Ratio (test code = A/G Ratio) 1.1 0.7-1.6 [facility] CenterDmdttlzKUVSNBVACHBF9783-09-17 18:46:00 Test Item Value Reference Range Interpretation Comments Globulin (test code = Globulin) 3.3 2.0-4.0 [facility] CenterTgaxwmkPYXUPEOXFTRU3764-27-16 18:46:00 Test Item Value Reference Range Interpretation Comments eGFR (test code = eGFR) 99 [facility] CenterFgwyyfoYCTJWOHZBSTU3577-81-56 18:46:00 Test Item Value Reference Range Interpretation Comments Calcium Lvl (test code = Calcium Lvl) 9.0 8.5-10.5 [facility] CenterVgdtzlgJHNBRPJWEMRP3250-91-80 18:46:00 Test Item Value Reference Range Interpretation Comments Chloride Lvl (test code = Chloride Lvl) 106 95-109 [facility] CenterBkoojxzVHDLFRROONFG5069-62-96 18:46:00 Test Item Value Reference Range Interpretation Comments Creatinine Lvl (test code = Creatinine 0.9 0.5-1.4 Lvl) [facility] CenterAmdpkkmMLHGHDOLVYAD0532-11-22 18:46:00 Test Item Value Reference Range Interpretation Comments Potassium Lvl (test code = Potassium 4.2 3.5-5.1 Lvl) [facility] CenterSjpjsdcOTOQHKHSJICA4490-15-82 18:46:00 Test Item Value Reference Range Interpretation Comments Sodium Lvl (test code = Sodium Lvl) 139 135-145 [facility] CenterDmdfuniQYWDRNRENFOM7229-74-89 18:46:00 Test Item Value Reference Range Interpretation Comments CO2 (test code = CO2) 24 24-32 [facility]PnwjhfnGKNUCTTQYVAN8679-12-47 18:46:00 Test Item Value Reference Range Interpretation Comments BUN (test code = BUN) 16 7-22 [facility] CenterOepiwseWRTEUNSSZRUK2478-14-77 18:46:00 Test Item Value Reference Range Interpretation Comments Glucose Lvl (test code = Glucose Lvl) 141 70-99 [facility] CenterIfgdmujMFVRWIMKMYRX0829-90-82 18:46:00 Test Item Value Reference Range Interpretation Comments Albumin Lvl (test code = Albumin Lvl) 3.6 3.5-5.0 [facility] CenterGrahdgcAYYFEKCXDVNP9500-67-60 18:46:00 Test Item Value Reference Range Interpretation Comments Alk Phos (test code = Alk Phos) 65 39-136 [facility] CenterReqoxksNWEDNMZIQICP7862-41-40 18:46:00 Test Item Value Reference Range Interpretation Comments Bili Total (test code = Bili Total) 0.3 0.2-1.3 [facility] CenterLtothhnUNAQAKPVLWTH1102-49-76 18:46:00 Test Item Value Reference Range Interpretation Comments ALT (test code = ALT) 100 See_Comment [Auto mated message] The system which ge nerated this result transmit elizabeth reference range : <=65. The reference range was not used to interpr et this result as margaret l/abnormal. [facility] CenterSpcmhugTUJYSMZFUFLY7759-70-96 18:46:00 Test Item Value Reference Range Interpretation Comments AST (test code = AST) 53 See_Comment [Auto mated message] The system which ge nerated this result transmit elizabeth reference range : <=37. The reference range was not used to interpr et this result as margaret l/abnormal. [facility] CenterPdesybrCIGQLJWWOVTY6721-91-93 18:46:00 Test Item Value Reference Range Interpretation Comments Total Protein (test code = Total 6.9 6.4-8.4 Protein) [facility] NorthwestEyiwatpHYPETDCSHJ6146-21-71 18:46:00 Test Item Value Reference Range Interpretation Comments Eosinophils (test code = 4.2 See_Comment [A utomated message] The Eosinophils) system which ge nerated this result tra nsmitted reference range : <=4.0. The reference r mitra was not used to int erpret this result as normal/abnormal . [facility] NorthwestKngplxdASDOJFJIGQ4023-70-60 18:46:00 Test Item Value Reference Range Interpretation Comments Segs (test code = Segs) 56.4 45.0-75.0 [facility] NorthwestVnhcapcPTOBUOQDWH3003-73-66 18:46:00 Test Item Value Reference Range Interpretation Comments Monocytes (test code = Monocytes) 10.3 2.0-12.0 [facility] NorthwestEqrvlsqQENTXPWFPZ0470-57-28 18:46:00 Test Item Value Reference Range Interpretation Comments Lymphocytes (test code = Lymphocytes) 28.0 20.0-40.0 [facility] NorthwestMivtvptNOPTDMMIAA8976-64-82 18:46:00 Test Item Value Reference Range Interpretation Comments Monocytes # (test code 0.5 See_Comment [Aut omated message] The = Monocytes #) system which generated this result tra nsmitted reference range : <=0.8. The reference r mitra was not used to int erpret this result as normal/abnormal . [facility] NorthwestRzmxyebLJBBCAZYTB5868-76-83 18:46:00 Test Item Value Reference Range Interpretation Comments Basophils (test code = 1.1 See_Comment [Aut omated message] The Basophils) system which ge nerated this result tra nsmitted reference range : <=1.0. The reference r mitra was not used to int erpret this result as normal/abnormal . [facility] NorthwestUgfxuywPFTPVCDQLL5829-73-35 18:46:00 Test Item Value Reference Range Interpretation Comments Lymphocytes # (test code = Lymphocytes 1.5 1.0-5.5 #) [facility] NorthwestQihdzuxYYGOAONSVB0065-91-36 18:46:00 Test Item Value Reference Range Interpretation Comments Segs-Bands # (test code = Segs-Bands #) 2.9 1.5-8.1 [facility] NorthwestTvshaivGJEHIQKIJI7189-49-15 18:46:00 Test Item Value Reference Range Interpretation Comments Eosinophils # (test code 0.2 See_Comment [A utomated message] The = Eosinophils #) system whic h generated this result tra nsmitted reference range : <=0.5. The reference r mitra was not used to int erpret this result as normal/abnormal . [facility] NorthwestYfoxhskVNRNYMMHMJ9193-57-08 18:46:00 Test Item Value Reference Range Interpretation Comments Basophils # (test code 0.1 See_Comment [Aut omated message] The = Basophils #) system which generated this result tra nsmitted reference range : <=0.2. The reference r mitra was not used to int erpret this result as normal/abnormal . [facility] NorthwestTtfskitODYPLHKNWI7544-27-14 18:46:00 Test Item Value Reference Range Interpretation Comments PT (test code = PT) 11.2 s 12.0-14.7 [facility] NorthwestAmazgzdHOTUMWHHSE5187-49-56 18:46:00 Test Item Value Reference Range Interpretation Comments INR (test code = INR) 0.82 0.85-1.17 [facility] NorthwestXpipoomQONAFPJNCH8788-82-57 18:46:00 Test Item Value Reference Range Interpretation Comments PTT (test code = PTT) 28.6 s 22.9-35.8 [facility] NorthwestQzfotjiLGYPYGIWVX3966-55-42 18:46:00 Test Item Value Reference Range Interpretation Comments MPV (test code = MPV) 8.1 7.4-10.4 [facility] NorthwestSxnnwrqVSXVHROVOJ0948-54-87 18:46:00 Test Item Value Reference Range Interpretation Comments Platelet (test code = Platelet) 301 133-450 [facility]LagqvjxGWUBKXQBUT2296-83-67 18:46:00 Test Item Value Reference Range Interpretation Comments RDW (test code = RDW) 14.5 11.5-14.5 [facility] HospitalBicayfoVHJDDLHZRC2925-21-78 18:46:00 Test Item Value Reference Range Interpretation Comments RBC (test code = RBC) 4.84 4.70-6.10 [facility] HospitalFuuygoqPQKMELFIJF2907-51-88 18:46:00 Test Item Value Reference Range Interpretation Comments Hgb (test code = Hgb) 14.4 14.0-18.0 [facility] NorthwestBypffmgXTNGZJLBSE8375-28-67 18:46:00 Test Item Value Reference Range Interpretation Comments WBC (test code = WBC) 5.2 3.7-10.4 [facility] NorthwestGgweuzbMOGINOADYZ3959-95-53 18:46:00 Test Item Value Reference Range Interpretation Comments MCH (test code = MCH) 29.8 pg 27.0-31.0 [facility] HospitalOsbkrpsMSRIKAPYTF5597-64-53 18:46:00 Test Item Value Reference Range Interpretation Comments MCV (test code = MCV) 92.0 80.0-94.0 [facility] HospitalTmulrkiTVBCAZMXVS6851-32-21 18:46:00 Test Item Value Reference Range Interpretation Comments Hct (test code = Hct) 44.5 42.0-54.0 [facility] HospitalWmsrtktWNAGSYEIRG9878-15-51 18:46:00 Test Item Value Reference Range Interpretation Comments MCHC (test code = MCHC) 32.4 32.0-36.0 [facility] CampusDmaiizlRRVFFQDHEY4069-42-13 18:46:00 Test Item Value Reference Range Interpretation Comments [place]-Hep C Ab (test Negative *NA*(07/22/14 code = [place]-Hep C 1:46 PM) Ab) [facility] [id number] 18:46:00 Test Item Value Reference Range Interpretation Comments UA Urobilinogen (test code = UA <=1.0 mg/dL 0.1-1.0 [facility]ogen) [facility] [id number] 18:46:00 Test Item Value Reference Range Interpretation Comments UA Sq Epi (test code = UA Sq Epi) [facility]en [facility] [id number] 18:46:00 Test Item Value Reference Range Interpretation Comments UA Leuk Est (test Negative (07/22/14 1:46 code = UA Leuk Est) PM) [facility] AND [id number] 18:46:00 Test Item Value Reference Range Interpretation Comments UA Nitrite (test code Negative (07/22/14 1:46 = UA Nitrite) PM) [facility] AND [id number] 18:46:00 Test Item Value Reference Range Interpretation Comments UA Blood (test code = Negative (07/22/14 1:46 UA Blood) PM) [facility] AND [id number] 18:46:00 Test Item Value Reference Range Interpretation Comments UA Ketones (test code = UA Negative mg/dL Ketones) [facility] AND [id number] 18:46:00 Test Item Value Reference Range Interpretation Comments UA Bili (test code = Negative *NA*(07/22/14 UA Bili) 1:46 PM) [facility] AND [id number] 18:46:00 Test Item Value Reference Range Interpretation Comments UA Bacteria (test code = UA Occasional /HPF Bacteria) [facility] AND [id number] 18:46:00 Test Item Value Reference Range Interpretation Comments UA RBC (test code = no gt See_Comment [Automa elizabeth message] The UA RBC) system which ge nerated this result transmit elizabeth reference range : <=2. The reference range was not used to interpr et this result as margaret l/abnormal. [facility] AND [id number] 18:46:00 Test Item Value Reference Range Interpretation Comments UA WBC (test code = 1 See_Comment [Automa elizabeth message] The UA WBC) system which ge nerated this result transmit elizabeth reference range : <=5. The reference range was not used to interpr et this result as margaret l/abnormal. [facility] AND [id number] 18:46:00 Test Item Value Reference Range Interpretation Comments UA Glucose (test code = UA Glucose) 30 mg/dL [facility] AND [id number] 18:46:00 Test Item Value Reference Range Interpretation Comments UA Protein (test code = UA Negative mg/dL Protein) [facility] AND [id number] 18:46:00 Test Item Value Reference Range Interpretation Comments UA pH (test code = UA pH) 6.5 5.0-8.0 [facility] [id number] 18:46:00 Test Item Value Reference Range Interpretation Comments UA Turbidity (test code = Clear (07/22/14 1:46 UA Turbidity) PM) [facility] [id number] 18:46:00 Test Item Value Reference Range Interpretation Comments UA Spec Grav (test code = UA Spec Grav) 1.010 [facility] AND [id number] 18:46:00 Test Item Value Reference Range Interpretation Comments UA Color (test code = Light Yellow UA Color) *NA*(07/22/14 1:46 PM) [facility]ann[facility] [id number] 18:46:00 Test Item Value Reference Range Interpretation Comments Magnesium Lvl (test code = Magnesium 1.8 1.8-2.4 Lvl) [facility]TcayrqzRBWYGBJTMIGK2745-83-30 18:46:00 Test Item Value Reference Range Interpretation Comments AGAP (test code = AGAP) 13.2 10.0-20.0 [facility]ervilleAxbvamsXNQEHOQSCZEJ3554-35-82 18:46:00 Test Item Value Reference Range Interpretation Comments B/C Ratio (test code = B/C Ratio) 18 6-25 [facility]ervilleJctnqkzIMDVSWBZTRQW9345-18-67 18:46:00 Test Item Value Reference Range Interpretation Comments A/G Ratio (test code = A/G Ratio) 1.1 0.7-1.6 [facility] ClinicsMheajffUSBHUOMYDCDH3973-62-17 18:46:00 Test Item Value Reference Range Interpretation Comments Globulin (test code = Globulin) 3.3 2.0-4.0 [facility]icsKeccyuwRGHQVFLPPUDP9489-46-60 18:46:00 Test Item Value Reference Range Interpretation Comments eGFR (test code = eGFR) 99 [facility]ervilleErtwtwhZXJCQVDTQUJL2743-82-14 18:46:00 Test Item Value Reference Range Interpretation Comments Calcium Lvl (test code = Calcium Lvl) 9.0 8.5-10.5 [facility] ClinicsVtgsajeCJBCFUYNDUQY8637-49-23 18:46:00 Test Item Value Reference Range Interpretation Comments Chloride Lvl (test code = Chloride Lvl) 106 95-109 [facility] CenterOcfxsltSULXYGNTPMZT0901-78-05 18:46:00 Test Item Value Reference Range Interpretation Comments Creatinine Lvl (test code = Creatinine 0.9 0.5-1.4 Lvl) [facility] CenterNhgyyypLJHRNDTDBLFE3187-98-15 18:46:00 Test Item Value Reference Range Interpretation Comments Potassium Lvl (test code = Potassium 4.2 3.5-5.1 Lvl) [facility] CenterNjvxrzjODBBIUZJMTZY2937-77-21 18:46:00 Test Item Value Reference Range Interpretation Comments Sodium Lvl (test code = Sodium Lvl) 139 135-145 [facility] CenterGusnitdRMEBHSPMOVYO8316-38-38 18:46:00 Test Item Value Reference Range Interpretation Comments CO2 (test code = CO2) 24 24-32 [facility] CenterAgaoxttTDCBAZDJGSGZ0651-61-62 18:46:00 Test Item Value Reference Range Interpretation Comments BUN (test code = BUN) 16 7-22 [facility] CenterCtycvwuGFJRCQAYNSYS4341-77-93 18:46:00 Test Item Value Reference Range Interpretation Comments Glucose Lvl (test code = Glucose Lvl) 141 70-99 [facility] CenterFbyavsgSJZTMGGZYIXC1863-36-90 18:46:00 Test Item Value Reference Range Interpretation Comments Albumin Lvl (test code = Albumin Lvl) 3.6 3.5-5.0 [facility] CenterSpeisxxIYSGTVDVDCML7038-69-40 18:46:00 Test Item Value Reference Range Interpretation Comments Alk Phos (test code = Alk Phos) 65 39-136 [facility] CenterLxcaayySLCQHJHTQJXB9798-08-83 18:46:00 Test Item Value Reference Range Interpretation Comments Bili Total (test code = Bili Total) 0.3 0.2-1.3 [facility] CenterAkywwcoTRELUFHJMJIC6303-88-24 18:46:00 Test Item Value Reference Range Interpretation Comments ALT (test code = ALT) 100 See_Comment [Auto mated message] The system which ge nerated this result transmit elizabeth reference range : <=65. The reference range was not used to interpr et this result as margaret l/abnormal. [facility] CenterFsugeqbWYWGCIGGFRQI1136-00-34 18:46:00 Test Item Value Reference Range Interpretation Comments AST (test code = AST) 53 See_Comment [Auto mated message] The system which ge nerated this result transmit elizabeth reference range : <=37. The reference range was not used to interpr et this result as margaret l/abnormal. [facility] CenterKtetyyiXFDQXPVKBCIG3709-50-32 18:46:00 Test Item Value Reference Range Interpretation Comments Total Protein (test code = Total 6.9 6.4-8.4 Protein) [facility] NorthwestDtjcdwjQTPSSYPJYR7680-88-73 18:46:00 Test Item Value Reference Range Interpretation Comments Eosinophils (test code = 4.2 See_Comment [A utomated message] The Eosinophils) system which ge nerated this result tra nsmitted reference range : <=4.0. The reference r mitra was not used to int erpret this result as normal/abnormal . [facility] NorthwestZqcuuvzXCEXUHNMMM3237-12-45 18:46:00 Test Item Value Reference Range Interpretation Comments Segs (test code = Segs) 56.4 45.0-75.0 [facility] NorthwestJqrmlmaJYDIVFFIFA6158-18-64 18:46:00 Test Item Value Reference Range Interpretation Comments Monocytes (test code = Monocytes) 10.3 2.0-12.0 [facility] NorthwestEsiysueKPUULIOCHQ0950-46-66 18:46:00 Test Item Value Reference Range Interpretation Comments Lymphocytes (test code = Lymphocytes) 28.0 20.0-40.0 [facility] NorthwestUosdvlxQPKPRHJFVA6557-45-02 18:46:00 Test Item Value Reference Range Interpretation Comments Monocytes # (test code 0.5 See_Comment [Aut omated message] The = Monocytes #) system which generated this result tra nsmitted reference range : <=0.8. The reference r mitra was not used to int erpret this result as normal/abnormal . [facility] NorthwestWsdcqagMLAAXZGCFX4606-95-60 18:46:00 Test Item Value Reference Range Interpretation Comments Basophils (test code = 1.1 See_Comment [Aut omated message] The Basophils) system which ge nerated this result tra nsmitted reference range : <=1.0. The reference r mitra was not used to int erpret this result as normal/abnormal . [facility] NorthwestNplwdpfHFXUARWRQO7368-82-80 18:46:00 Test Item Value Reference Range Interpretation Comments Lymphocytes # (test code = Lymphocytes 1.5 1.0-5.5 #) [facility] NorthwestZxjqmecAVDUWJTHIZ9286-94-93 18:46:00 Test Item Value Reference Range Interpretation Comments Segs-Bands # (test code = Segs-Bands #) 2.9 1.5-8.1 [facility] NorthwestWjfupjeHFIASXEWYK8845-35-61 18:46:00 Test Item Value Reference Range Interpretation Comments Eosinophils # (test code 0.2 See_Comment [A utomated message] The = Eosinophils #) system whic h generated this result tra nsmitted reference range : <=0.5. The reference r mitra was not used to int erpret this result as normal/abnormal . [facility] NorthwestHlzcytiTWCRRMKSRJ1949-30-25 18:46:00 Test Item Value Reference Range Interpretation Comments Basophils # (test code 0.1 See_Comment [Aut omated message] The = Basophils #) system which generated this result tra nsmitted reference range : <=0.2. The reference r mitra was not used to int erpret this result as normal/abnormal . [facility] NorthwestRbcyuzxDGHVQVFIFS8099-07-34 18:46:00 Test Item Value Reference Range Interpretation Comments PT (test code = PT) 11.2 s 12.0-14.7 [facility] NorthwestQvoclleJLTZKTZXLU8031-87-10 18:46:00 Test Item Value Reference Range Interpretation Comments INR (test code = INR) 0.82 0.85-1.17 [facility] NorthwestXxyidfeBEPJMQLNUS9180-44-60 18:46:00 Test Item Value Reference Range Interpretation Comments PTT (test code = PTT) 28.6 s 22.9-35.8 [facility] NorthwestYwihakvZEHIXEMIIC1695-28-90 18:46:00 Test Item Value Reference Range Interpretation Comments MPV (test code = MPV) 8.1 7.4-10.4 [facility] NorthwestGfjtiiyIVIQAGFYSH1525-12-97 18:46:00 Test Item Value Reference Range Interpretation Comments Platelet (test code = Platelet) 301 133-450 [facility] NorthwestJyisfutLPEWRZLTAN3567-24-57 18:46:00 Test Item Value Reference Range Interpretation Comments RDW (test code = RDW) 14.5 11.5-14.5 [facility] NorthwestZgvciipYXTDKUALDY7670-57-36 18:46:00 Test Item Value Reference Range Interpretation Comments RBC (test code = RBC) 4.84 4.70-6.10 [facility] NorthwestKhynygeMYVGXRFHDA5940-67-09 18:46:00 Test Item Value Reference Range Interpretation Comments Hgb (test code = Hgb) 14.4 14.0-18.0 [facility] CampusTsjkekbBDXFQYHKHF3611-36-97 18:46:00 Test Item Value Reference Range Interpretation Comments WBC (test code = WBC) 5.2 3.7-10.4 [facility] CampusOnieicbCHOMMCHQPR9873-36-96 18:46:00 Test Item Value Reference Range Interpretation Comments MCH (test code = MCH) 29.8 pg 27.0-31.0 [facility]MlaywjyXPUSGSMZRT9108-69-73 18:46:00 Test Item Value Reference Range Interpretation Comments MCV (test code = MCV) 92.0 80.0-94.0 [facility] CampusKsjrmrrDDFXDAMFJG2903-22-22 18:46:00 Test Item Value Reference Range Interpretation Comments Hct (test code = Hct) 44.5 42.0-54.0 [facility] HospitalSzoosvhYECYMROVJM1877-09-10 18:46:00 Test Item Value Reference Range Interpretation Comments MCHC (test code = MCHC) 32.4 32.0-36.0 [facility] CampusMnakhfnCLWIWIIXSQ7348-37-57 18:46:00 Test Item Value Reference Range Interpretation Comments [place]-Hep C Ab (test Negative *NA*(07/22/14 code = [place]-Hep C 1:46 PM) Ab) [facility] AND [id number] 18:46:00 Test Item Value Reference Range Interpretation Comments UA Urobilinogen (test code = UA <=1.0 mg/dL 0.1-1.0 Urobilinogen) [facility] AND [id number] 18:46:00 Test Item Value Reference Range Interpretation Comments UA Sq Epi (test code = UA Sq Epi) None Seen [facility] AND [id number] 18:46:00 Test Item Value Reference Range Interpretation Comments UA Leuk Est (test Negative (07/22/14 1:46 code = UA Leuk Est) PM) [facility] AND [id number] 18:46:00 Test Item Value Reference Range Interpretation Comments UA Nitrite (test code Negative (07/22/14 1:46 = UA Nitrite) PM) [facility] AND [id number] 18:46:00 Test Item Value Reference Range Interpretation Comments UA Blood (test code = Negative (07/22/14 1:46 UA Blood) PM) [facility] AND [id number] 18:46:00 Test Item Value Reference Range Interpretation Comments UA Ketones (test code = UA Negative mg/dL Ketones) [facility] AND [id number] 18:46:00 Test Item Value Reference Range Interpretation Comments UA Bili (test code = Negative *NA*(07/22/14 UA Bili) 1:46 PM) [facility] AND [id number] 18:46:00 Test Item Value Reference Range Interpretation Comments UA Bacteria (test code = UA Occasional /HPF Bacteria) [facility] AND [id number] 18:46:00 Test Item Value Reference Range Interpretation Comments UA RBC (test code = no gt See_Comment [Automa elizabeth message] The UA RBC) system which ge nerated this result transmit elizabeth reference range : <=2. The reference range was not used to interpr et this result as margaret l/abnormal. [facility] AND [id number] 18:46:00 Test Item Value Reference Range Interpretation Comments UA WBC (test code = 1 See_Comment [Automa elizabeth message] The UA WBC) system which ge nerated this result transmit elizabeth reference range : <=5. The reference range was not used to interpr et this result as margaret l/abnormal. [facility] AND [id number] 18:46:00 Test Item Value Reference Range Interpretation Comments UA Glucose (test code = UA Glucose) 30 mg/dL [facility] AND [id number] 18:46:00 Test Item Value Reference Range Interpretation Comments UA Protein (test code = UA Negative mg/dL Protein) [facility] AND [id number] 18:46:00 Test Item Value Reference Range Interpretation Comments UA pH (test code = UA pH) 6.5 5.0-8.0 [facility] AND [id number] 18:46:00 Test Item Value Reference Range Interpretation Comments UA Turbidity (test code = Clear (07/22/14 1:46 UA Turbidity) PM) [facility] AND [id number] 18:46:00 Test Item Value Reference Range Interpretation Comments UA Spec Grav (test code = UA Spec Grav) 1.010 [facility] AND [id number] 18:46:00 Test Item Value Reference Range Interpretation Comments UA Color (test code = Light Yellow UA Color) *NA*(07/22/14 1:46 PM) [facility]2015-06-09 18:46:00 Test Item Value Reference Range Interpretation Comments Magnesium Lvl (test code = Magnesium 1.8 1.8-2.4 Lvl) [facility] CenterJdsdlmlYGLTWVGAPBTF6476-67-62 18:46:00 Test Item Value Reference Range Interpretation Comments AGAP (test code = AGAP) 13.2 10.0-20.0 [facility] CenterAsixmhfAPVHFLCPZPNG9458-70-51 18:46:00 Test Item Value Reference Range Interpretation Comments B/C Ratio (test code = B/C Ratio) 18 6-25 [facility] CenterBghwzogZIIIYSRJYCKN3717-08-81 18:46:00 Test Item Value Reference Range Interpretation Comments A/G Ratio (test code = A/G Ratio) 1.1 0.7-1.6 [facility] CenterWstychnCLXAYKZHILND9656-39-55 18:46:00 Test Item Value Reference Range Interpretation Comments Globulin (test code = Globulin) 3.3 2.0-4.0 [facility] CenterUwqoqwkRYLDPWALRNPH8106-63-08 18:46:00 Test Item Value Reference Range Interpretation Comments eGFR (test code = eGFR) 99 [facility] CenterHbrjjfbVEGJLSYAHEIC4504-97-38 18:46:00 Test Item Value Reference Range Interpretation Comments Calcium Lvl (test code = Calcium Lvl) 9.0 8.5-10.5 [facility] CenterTjmcayhWRFZLPYVEVAS0776-14-65 18:46:00 Test Item Value Reference Range Interpretation Comments Chloride Lvl (test code = Chloride Lvl) 106 95-109 [facility] CenterHjyvolmVVVCGMMAGKWE6129-72-99 18:46:00 Test Item Value Reference Range Interpretation Comments Creatinine Lvl (test code = Creatinine 0.9 0.5-1.4 Lvl) [facility] CenterMalgpykVPWQNPDEBGOZ5818-58-05 18:46:00 Test Item Value Reference Range Interpretation Comments Potassium Lvl (test code = Potassium 4.2 3.5-5.1 Lvl) [facility] CenterYgidzguRNVXCPWHCIDH9590-60-45 18:46:00 Test Item Value Reference Range Interpretation Comments Sodium Lvl (test code = Sodium Lvl) 139 135-145 [facility] CenterNmtfuneHRRIIEPTUVKL8564-26-14 18:46:00 Test Item Value Reference Range Interpretation Comments CO2 (test code = CO2) 24 24-32 [facility] CenterKfgoaciOJYXFRABFXZR2640-22-10 18:46:00 Test Item Value Reference Range Interpretation Comments BUN (test code = BUN) 16 7-22 [facility] CenterWoqivozXIAMUIYKXPBW4293-36-78 18:46:00 Test Item Value Reference Range Interpretation Comments Glucose Lvl (test code = Glucose Lvl) 141 70-99 [facility] CenterLzectogKKBGHTREVNVT6736-19-62 18:46:00 Test Item Value Reference Range Interpretation Comments Albumin Lvl (test code = Albumin Lvl) 3.6 3.5-5.0 [facility] CenterXwnupegYMGTMQZPTJFI2103-04-46 18:46:00 Test Item Value Reference Range Interpretation Comments Alk Phos (test code = Alk Phos) 65 39-136 [facility] CenterCmoqhymKDPLYLXCXWWI5225-94-71 18:46:00 Test Item Value Reference Range Interpretation Comments Bili Total (test code = Bili Total) 0.3 0.2-1.3 [facility] CenterPvvljzvGIKZJNUBNPLE8870-64-22 18:46:00 Test Item Value Reference Range Interpretation Comments ALT (test code = ALT) 100 See_Comment [Auto mated message] The system which ge nerated this result transmit elizabeth reference range : <=65. The reference range was not used to interpr et this result as margaret l/abnormal. [facility] CenterKhkiuqvXNSEGERZGMFQ8201-74-82 18:46:00 Test Item Value Reference Range Interpretation Comments AST (test code = AST) 53 See_Comment [Auto mated message] The system which ge nerated this result transmit elizabeth reference range : <=37. The reference range was not used to interpr et this result as margaret l/abnormal. [facility] CenterLiqadvnCPDWLGOGPVCQ6507-94-92 18:46:00 Test Item Value Reference Range Interpretation Comments Total Protein (test code = Total 6.9 6.4-8.4 Protein) [facility] CampusUrwdjkiEIYPJEWPHN1848-75-35 18:46:00 Test Item Value Reference Range Interpretation Comments Eosinophils (test code = 4.2 See_Comment [A utomated message] The Eosinophils) system which ge nerated this result tra nsmitted reference range : <=4.0. The reference r mitra was not used to int erpret this result as normal/abnormal . [facility] NorthwestGqcqvhmFIAJAANGBL1137-10-89 18:46:00 Test Item Value Reference Range Interpretation Comments Segs (test code = Segs) 56.4 45.0-75.0 [facility] NorthwestVvfudqmVCRTBVWBPI6504-90-95 18:46:00 Test Item Value Reference Range Interpretation Comments Monocytes (test code = Monocytes) 10.3 2.0-12.0 [facility] NorthwestNjvbkhkPEXHSSNVQV3901-00-61 18:46:00 Test Item Value Reference Range Interpretation Comments Lymphocytes (test code = Lymphocytes) 28.0 20.0-40.0 [facility] NorthwestIojqlttZYVRHNWUEN0830-41-10 18:46:00 Test Item Value Reference Range Interpretation Comments Monocytes # (test code 0.5 See_Comment [Aut omated message] The = Monocytes #) system which generated this result tra nsmitted reference range : <=0.8. The reference r mitra was not used to int erpret this result as normal/abnormal . [facility] NorthwestPfczlevBZIDOROHSF1616-77-15 18:46:00 Test Item Value Reference Range Interpretation Comments Basophils (test code = 1.1 See_Comment [Aut omated message] The Basophils) system which ge nerated this result tra nsmitted reference range : <=1.0. The reference r mitra was not used to int erpret this result as normal/abnormal . [facility] NorthwestZpldmwaKTSJOKUMIA6966-74-50 18:46:00 Test Item Value Reference Range Interpretation Comments Lymphocytes # (test code = Lymphocytes 1.5 1.0-5.5 #) [facility] NorthwestCplfmdkYCUETKHFAA8665-52-22 18:46:00 Test Item Value Reference Range Interpretation Comments Segs-Bands # (test code = Segs-Bands #) 2.9 1.5-8.1 [facility] NorthwestSgpoioqAVHYURJMRK7415-23-83 18:46:00 Test Item Value Reference Range Interpretation Comments Eosinophils # (test code 0.2 See_Comment [A utomated message] The = Eosinophils #) system whic h generated this result tra nsmitted reference range : <=0.5. The reference r mitra was not used to int erpret this result as normal/abnormal . [facility] NorthwestQqfdkuwYMHDCAMNVX9033-20-31 18:46:00 Test Item Value Reference Range Interpretation Comments Basophils # (test code 0.1 See_Comment [Aut omated message] The = Basophils #) system which generated this result tra nsmitted reference range : <=0.2. The reference r mitra was not used to int erpret this result as normal/abnormal . [facility] NorthwestJdrtfxwPLBWMATGNC8625-16-72 18:46:00 Test Item Value Reference Range Interpretation Comments PT (test code = PT) 11.2 s 12.0-14.7 [facility] NorthwestIgesxsnVEMQSOKFFZ0875-00-77 18:46:00 Test Item Value Reference Range Interpretation Comments INR (test code = INR) 0.82 0.85-1.17 [facility] NorthwestQqjtgkqLDMCIYCURB4471-14-81 18:46:00 Test Item Value Reference Range Interpretation Comments PTT (test code = PTT) 28.6 s 22.9-35.8 [facility] NorthwestQkeujwpVUKJYJQQEL8213-72-63 18:46:00 Test Item Value Reference Range Interpretation Comments MPV (test code = MPV) 8.1 7.4-10.4 [facility] NorthwestIcrxlefNXGVHBWDOQ4769-79-08 18:46:00 Test Item Value Reference Range Interpretation Comments Platelet (test code = Platelet) 301 133-450 [facility] NorthwestTglkaxyDVDSKBMKIF5867-65-29 18:46:00 Test Item Value Reference Range Interpretation Comments RDW (test code = RDW) 14.5 11.5-14.5 [facility] NorthwestVvljpnxWDRWNCLYCK1588-46-34 18:46:00 Test Item Value Reference Range Interpretation Comments RBC (test code = RBC) 4.84 4.70-6.10 [facility] NorthwestZmfbprcRWCJTTAEQH7920-77-32 18:46:00 Test Item Value Reference Range Interpretation Comments Hgb (test code = Hgb) 14.4 14.0-18.0 [facility] NorthwestRsmqgfyTVSIBWNNMS4482-04-77 18:46:00 Test Item Value Reference Range Interpretation Comments WBC (test code = WBC) 5.2 3.7-10.4 [facility] NorthwestBgegjojOIMAOAPDNE0793-43-37 18:46:00 Test Item Value Reference Range Interpretation Comments MCH (test code = MCH) 29.8 pg 27.0-31.0 [facility] NorthwestVjbwqahMTMMKDVLDR3947-83-68 18:46:00 Test Item Value Reference Range Interpretation Comments MCV (test code = MCV) 92.0 80.0-94.0 [facility] NorthwestPfsbfnmTLQOEYJIMI8839-97-14 18:46:00 Test Item Value Reference Range Interpretation Comments Hct (test code = Hct) 44.5 42.0-54.0 [facility] XnnpyirOKXITNBMLF6812-22-10 18:46:00 Test Item Value Reference Range Interpretation Comments MCHC (test code = MCHC) 32.4 32.0-36.0 [facility] ZwmglbeLQTXWYBJKM3991-35-03 18:46:00 Test Item Value Reference Range Interpretation Comments [place]-Hep C Ab (test Negative *NA*(07/22/14 code = [place]-Hep C 1:46 PM) Ab) [facility] AND [id number] 18:46:00 Test Item Value Reference Range Interpretation Comments UA Urobilinogen (test code = UA <=1.0 mg/dL 0.1-1.0 Urobilinogen) [facility] AND [id number] 18:46:00 Test Item Value Reference Range Interpretation Comments UA Sq Epi (test code = UA Sq Epi) None Seen [facility] AND [id number] 18:46:00 Test Item Value Reference Range Interpretation Comments UA Leuk Est (test Negative (07/22/14 1:46 code = UA Leuk Est) PM) [facility] AND [id number] 18:46:00 Test Item Value Reference Range Interpretation Comments UA Nitrite (test code Negative (07/22/14 1:46 = UA Nitrite) PM) [facility] AND [id number] 18:46:00 Test Item Value Reference Range Interpretation Comments UA Blood (test code = Negative (07/22/14 1:46 UA Blood) PM) [facility] [id number] 18:46:00 Test Item Value Reference Range Interpretation Comments UA Ketones (test code = UA Negative mg/dL Ketones) [facility] AND [id number] 18:46:00 Test Item Value Reference Range Interpretation Comments UA Bili (test code = Negative *NA*(07/22/14 UA Bili) 1:46 PM) [facility] AND [id number] 18:46:00 Test Item Value Reference Range Interpretation Comments UA Bacteria (test code = UA Occasional /HPF Bacteria) [facility] AND [id number] 18:46:00 Test Item Value Reference Range Interpretation Comments UA RBC (test code = no gt See_Comment [Automa elizabeth message] The UA RBC) system which ge nerated this result transmit elizabeth reference range : <=2. The reference range was not used to interpr et this result as margaret l/abnormal. [facility] AND [id number] 18:46:00 Test Item Value Reference Range Interpretation Comments UA WBC (test code = 1 See_Comment [Automa elizabeth message] The UA WBC) system which ge nerated this result transmit elizabeth reference range : <=5. The reference range was not used to interpr et this result as margaret l/abnormal. [facility] AND [id number] 18:46:00 Test Item Value Reference Range Interpretation Comments UA Glucose (test code = UA Glucose) 30 mg/dL [facility] AND [id number] 18:46:00 Test Item Value Reference Range Interpretation Comments UA Protein (test code = UA Negative mg/dL Protein) [facility] AND [id number] 18:46:00 Test Item Value Reference Range Interpretation Comments UA pH (test code = UA pH) 6.5 5.0-8.0 [facility] AND [id number] 18:46:00 Test Item Value Reference Range Interpretation Comments UA Turbidity (test code = Clear (07/22/14 1:46 UA Turbidity) PM) [facility] AND [id number] 18:46:00 Test Item Value Reference Range Interpretation Comments UA Spec Grav (test code = UA Spec Grav) 1.010 [facility] AND [id number] 18:46:00 Test Item Value Reference Range Interpretation Comments UA Color (test code = Light Yellow UA Color) *NA*(07/22/14 1:46 PM) [facility]icsannCHEM [id number] 18:46:00 Test Item Value Reference Range Interpretation Comments Magnesium Lvl (test code = Magnesium 1.8 1.8-2.4 Lvl) [facility]icsSuenmdcCHUUMYYHUVPK7243-27-48 18:46:00 Test Item Value Reference Range Interpretation Comments AGAP (test code = AGAP) 13.2 10.0-20.0 [facility]GetogksCDKTWKPFDDXV5570-15-89 18:46:00 Test Item Value Reference Range Interpretation Comments B/C Ratio (test code = B/C Ratio) 18 6-25 [facility] CenterNtdhbbsRTCPMYMJHGND8142-41-17 18:46:00 Test Item Value Reference Range Interpretation Comments A/G Ratio (test code = A/G Ratio) 1.1 0.7-1.6 [facility] CenterBokgcwnXKYRWPOFXXPN3969-46-35 18:46:00 Test Item Value Reference Range Interpretation Comments Globulin (test code = Globulin) 3.3 2.0-4.0 [facility] CenterMifejbmFQMMSXVZZRZJ6458-39-24 18:46:00 Test Item Value Reference Range Interpretation Comments eGFR (test code = eGFR) 99 [facility] CenterJcqhnghPOZEPYEWOWNK2528-68-80 18:46:00 Test Item Value Reference Range Interpretation Comments Calcium Lvl (test code = Calcium Lvl) 9.0 8.5-10.5 [facility] CenterAmpovsaXJEYQYUZVSBI2816-36-53 18:46:00 Test Item Value Reference Range Interpretation Comments Chloride Lvl (test code = Chloride Lvl) 106 95-109 [facility] CenterAlqszrwOGFWOIGUGJNV9608-67-32 18:46:00 Test Item Value Reference Range Interpretation Comments Creatinine Lvl (test code = Creatinine 0.9 0.5-1.4 Lvl) [facility] CenterUurnvqeWGZOTUNBISXL2629-06-71 18:46:00 Test Item Value Reference Range Interpretation Comments Potassium Lvl (test code = Potassium 4.2 3.5-5.1 Lvl) [facility] CenterDunbeggNTXAVURJODGV0529-19-84 18:46:00 Test Item Value Reference Range Interpretation Comments Sodium Lvl (test code = Sodium Lvl) 139 135-145 [facility] CenterTaxgpkzFIXIKMHCKONH0361-59-44 18:46:00 Test Item Value Reference Range Interpretation Comments CO2 (test code = CO2) 24 24-32 [facility] CenterEdkicviXLOKMKXZABSV8064-72-42 18:46:00 Test Item Value Reference Range Interpretation Comments BUN (test code = BUN) 16 7-22 [facility] CenterKxadmfiZJKWHGNTZFIK9086-23-99 18:46:00 Test Item Value Reference Range Interpretation Comments Glucose Lvl (test code = Glucose Lvl) 141 70-99 [facility] CenterNjuzgftXUMXYZODDWXK9313-95-55 18:46:00 Test Item Value Reference Range Interpretation Comments Albumin Lvl (test code = Albumin Lvl) 3.6 3.5-5.0 [facility] CenterFkqindtFOQCRPZWFCLT7365-83-26 18:46:00 Test Item Value Reference Range Interpretation Comments Alk Phos (test code = Alk Phos) 65 39-136 [facility] CenterFqczltkQOGAMNPOPSCG5084-01-36 18:46:00 Test Item Value Reference Range Interpretation Comments Bili Total (test code = Bili Total) 0.3 0.2-1.3 [facility] CenterZokhmhqFEQOYCZJGMPE7583-72-21 18:46:00 Test Item Value Reference Range Interpretation Comments ALT (test code = ALT) 100 See_Comment [Auto mated message] The system which ge nerated this result transmit elizabeth reference range : <=65. The reference range was not used to interpr et this result as margaret l/abnormal. [facility] CenterPaowtzhQSAMANIVPLFP5123-51-96 18:46:00 Test Item Value Reference Range Interpretation Comments AST (test code = AST) 53 See_Comment [Auto mated message] The system which ge nerated this result transmit elizabeth reference range : <=37. The reference range was not used to interpr et this result as margaret l/abnormal. [facility] CenterBipbudaKPHSMUPWTEVI3441-87-21 18:46:00 Test Item Value Reference Range Interpretation Comments Total Protein (test code = Total 6.9 6.4-8.4 Protein) [facility] NorthwestOpxwsiqUKYTMIOITP5017-25-54 18:46:00 Test Item Value Reference Range Interpretation Comments Eosinophils (test code = 4.2 See_Comment [A utomated message] The Eosinophils) system which ge nerated this result tra nsmitted reference range : <=4.0. The reference r mitra was not used to int erpret this result as normal/abnormal . [facility] NorthwestTssnakqEWBLBBGUGC4080-48-70 18:46:00 Test Item Value Reference Range Interpretation Comments Segs (test code = Segs) 56.4 45.0-75.0 [facility] NorthwestZvbbaxrLLIMZPRMEO9888-08-05 18:46:00 Test Item Value Reference Range Interpretation Comments Monocytes (test code = Monocytes) 10.3 2.0-12.0 [facility] NorthwestCqollbtMKTYHULCXC9976-42-31 18:46:00 Test Item Value Reference Range Interpretation Comments Lymphocytes (test code = Lymphocytes) 28.0 20.0-40.0 [facility] NorthwestWdkyykfFCAHSTXNMV1937-92-12 18:46:00 Test Item Value Reference Range Interpretation Comments Monocytes # (test code 0.5 See_Comment [Aut omated message] The = Monocytes #) system which generated this result tra nsmitted reference range : <=0.8. The reference r mitra was not used to int erpret this result as normal/abnormal . [facility] NorthwestDpxxzomPCKUGMTZKQ5538-56-05 18:46:00 Test Item Value Reference Range Interpretation Comments Basophils (test code = 1.1 See_Comment [Aut omated message] The Basophils) system which ge nerated this result tra nsmitted reference range : <=1.0. The reference r mitra was not used to int erpret this result as normal/abnormal . [facility] NorthwestRlvogijZCICAKEEWU2139-09-29 18:46:00 Test Item Value Reference Range Interpretation Comments Lymphocytes # (test code = Lymphocytes 1.5 1.0-5.5 #) [facility] NorthwestDvlaydsPCOZHYOJZN1252-02-88 18:46:00 Test Item Value Reference Range Interpretation Comments Segs-Bands # (test code = Segs-Bands #) 2.9 1.5-8.1 [facility] NorthwestXtvzldgGOTIUSXZDQ6442-12-07 18:46:00 Test Item Value Reference Range Interpretation Comments Eosinophils # (test code 0.2 See_Comment [A utomated message] The = Eosinophils #) system whic h generated this result tra nsmitted reference range : <=0.5. The reference r mitra was not used to int erpret this result as normal/abnormal . [facility] NorthwestWjbqfgrVZYVLIRIFL5255-08-97 18:46:00 Test Item Value Reference Range Interpretation Comments Basophils # (test code 0.1 See_Comment [Aut omated message] The = Basophils #) system which generated this result tra nsmitted reference range : <=0.2. The reference r mitra was not used to int erpret this result as normal/abnormal . [facility] NorthwestYwtdoytCSLCHIQBLJ9491-48-64 18:46:00 Test Item Value Reference Range Interpretation Comments PT (test code = PT) 11.2 s 12.0-14.7 [facility] NorthwestPblgbixYEWUWHKZLR1884-53-83 18:46:00 Test Item Value Reference Range Interpretation Comments INR (test code = INR) 0.82 0.85-1.17 [facility] NorthwestNgtmokqNZQBVHNWBT5420-25-92 18:46:00 Test Item Value Reference Range Interpretation Comments PTT (test code = PTT) 28.6 s 22.9-35.8 [facility]GqulfmtBWVHMTGYDT2442-72-64 18:46:00 Test Item Value Reference Range Interpretation Comments MPV (test code = MPV) 8.1 7.4-10.4 [facility] HospitalBkgqnfmZNRDBDQBKK1269-63-80 18:46:00 Test Item Value Reference Range Interpretation Comments Platelet (test code = Platelet) 301 133-450 [facility] HospitalLmcfqfdUAUMDYRFGW9975-84-70 18:46:00 Test Item Value Reference Range Interpretation Comments RDW (test code = RDW) 14.5 11.5-14.5 [facility] HospitalMpiniufMFCVDWWRHN5791-31-97 18:46:00 Test Item Value Reference Range Interpretation Comments RBC (test code = RBC) 4.84 4.70-6.10 [facility] HospitalLakexbzIEZEZRIJHP0446-59-45 18:46:00 Test Item Value Reference Range Interpretation Comments Hgb (test code = Hgb) 14.4 14.0-18.0 [facility] HospitalZphhnolXZPRUJVSEO8459-63-02 18:46:00 Test Item Value Reference Range Interpretation Comments WBC (test code = WBC) 5.2 3.7-10.4 [facility] HospitalExzrrkcTNFLKQIAZJ5484-11-40 18:46:00 Test Item Value Reference Range Interpretation Comments MCH (test code = MCH) 29.8 pg 27.0-31.0 [facility] HospitalGucpdodDYGLSNGOLL0764-06-56 18:46:00 Test Item Value Reference Range Interpretation Comments MCV (test code = MCV) 92.0 80.0-94.0 [facility] CampusAcycatyOHBFYRGWLV2802-49-82 18:46:00 Test Item Value Reference Range Interpretation Comments Hct (test code = Hct) 44.5 42.0-54.0 [facility] HospitalHfabvoaABETTWLUCU3041-61-91 18:46:00 Test Item Value Reference Range Interpretation Comments MCHC (test code = MCHC) 32.4 32.0-36.0 [facility] CampusNgorarwPKIQGJDKHI6412-96-15 18:46:00 Test Item Value Reference Range Interpretation Comments [place]-Hep C Ab (test Negative *NA*(07/22/14 code = [place]-Hep C 1:46 PM) Ab) [facility] AND [id number] 18:46:00 Test Item Value Reference Range Interpretation Comments UA Urobilinogen (test code = UA <=1.0 mg/dL 0.1-1.0 Urobilinogen) [facility] AND [id number] 18:46:00 Test Item Value Reference Range Interpretation Comments UA Sq Epi (test code = UA Sq Epi) None Seen [facility] AND [id number] 18:46:00 Test Item Value Reference Range Interpretation Comments UA Leuk Est (test Negative (07/22/14 1:46 code = UA Leuk Est) PM) [facility] AND [id number] 18:46:00 Test Item Value Reference Range Interpretation Comments UA Nitrite (test code Negative (07/22/14 1:46 = UA Nitrite) PM) [facility] AND [id number] 18:46:00 Test Item Value Reference Range Interpretation Comments UA Blood (test code = Negative (07/22/14 1:46 UA Blood) PM) [facility] AND [id number] 18:46:00 Test Item Value Reference Range Interpretation Comments UA Ketones (test code = UA Negative mg/dL Ketones) [facility] AND [id number] 18:46:00 Test Item Value Reference Range Interpretation Comments UA Bili (test code = Negative *NA*(07/22/14 UA Bili) 1:46 PM) [facility] AND [id number] 18:46:00 Test Item Value Reference Range Interpretation Comments UA Bacteria (test code = UA Occasional /HPF Bacteria) [facility] AND [id number] 18:46:00 Test Item Value Reference Range Interpretation Comments UA RBC (test code = no gt See_Comment [Automa elizabeth message] The UA RBC) system which ge nerated this result transmit elizabeth reference range : <=2. The reference range was not used to interpr et this result as margaret l/abnormal. [facility] AND [id number] 18:46:00 Test Item Value Reference Range Interpretation Comments UA WBC (test code = 1 See_Comment [Automa elizabeth message] The UA WBC) system which ge nerated this result transmit elizabeth reference range : <=5. The reference range was not used to interpr et this result as margaret l/abnormal. [facility] AND [id number] 18:46:00 Test Item Value Reference Range Interpretation Comments UA Glucose (test code = UA Glucose) 30 mg/dL [facility] AND [id number] 18:46:00 Test Item Value Reference Range Interpretation Comments UA Protein (test code = UA Negative mg/dL Protein) [facility] AND [id number] 18:46:00 Test Item Value Reference Range Interpretation Comments UA pH (test code = UA pH) 6.5 5.0-8.0 [facility] AND [id number] 18:46:00 Test Item Value Reference Range Interpretation Comments UA Turbidity (test code = Clear (07/22/14 1:46 UA Turbidity) PM) [facility] AND [id number] 18:46:00 Test Item Value Reference Range Interpretation Comments UA Spec Grav (test code = UA Spec Grav) 1.010 [facility] AND [id number] 18:46:00 Test Item Value Reference Range Interpretation Comments UA Color (test code = Light Yellow UA Color) *NA*(07/22/14 1:46 PM) [facility] [id number] 18:46:00 Test Item Value Reference Range Interpretation Comments Magnesium Lvl (test code = Magnesium 1.8 1.8-2.4 Lvl) [facility] CenterSezwvzpHCDROSJKXSSN5844-69-76 18:46:00 Test Item Value Reference Range Interpretation Comments AGAP (test code = AGAP) 13.2 10.0-20.0 [facility] CenterBsptinlMLJWZFUQPGQI5146-92-91 18:46:00 Test Item Value Reference Range Interpretation Comments B/C Ratio (test code = B/C Ratio) 18 6-25 [facility] CenterQjortukLWDKQJMLDXAF3291-17-95 18:46:00 Test Item Value Reference Range Interpretation Comments A/G Ratio (test code = A/G Ratio) 1.1 0.7-1.6 [facility] CenterEhhfunvMOLQWHLPMGXO7968-75-22 18:46:00 Test Item Value Reference Range Interpretation Comments Globulin (test code = Globulin) 3.3 2.0-4.0 [facility] CenterNjabbqzCCAUBQJABDSW8465-44-69 18:46:00 Test Item Value Reference Range Interpretation Comments eGFR (test code = eGFR) 99 [facility] CenterLttuotdYVGPNUVUGKJG0341-35-26 18:46:00 Test Item Value Reference Range Interpretation Comments Calcium Lvl (test code = Calcium Lvl) 9.0 8.5-10.5 [facility] CenterDpbrkixLSOUBAOEMHMO2103-93-18 18:46:00 Test Item Value Reference Range Interpretation Comments Chloride Lvl (test code = Chloride Lvl) 106 95-109 [facility] CenterIlxuvjsEYNMSTRTDFBA2073-06-02 18:46:00 Test Item Value Reference Range Interpretation Comments Creatinine Lvl (test code = Creatinine 0.9 0.5-1.4 Lvl) [facility] CenterJsxwwfgSRHCZNJPSHGU7769-76-04 18:46:00 Test Item Value Reference Range Interpretation Comments Potassium Lvl (test code = Potassium 4.2 3.5-5.1 Lvl) [facility] CenterAmznsiuZQGEQKMALTGR4704-78-25 18:46:00 Test Item Value Reference Range Interpretation Comments Sodium Lvl (test code = Sodium Lvl) 139 135-145 [facility] CenterCnpmyxmPQELMLOWHLPO1048-83-20 18:46:00 Test Item Value Reference Range Interpretation Comments CO2 (test code = CO2) 24 24-32 [facility] CenterVqvlkgqKXXTHKJDHWAN6240-93-11 18:46:00 Test Item Value Reference Range Interpretation Comments BUN (test code = BUN) 16 7-22 [facility] CenterJkebrnoDCILQQJGLXXN0078-30-69 18:46:00 Test Item Value Reference Range Interpretation Comments Glucose Lvl (test code = Glucose Lvl) 141 70-99 [facility] CenterEkdsjchXFUVPBBOEMBX9499-45-77 18:46:00 Test Item Value Reference Range Interpretation Comments Albumin Lvl (test code = Albumin Lvl) 3.6 3.5-5.0 [facility] CenterBrdgwqpDPRWEUYWXJMX0133-69-10 18:46:00 Test Item Value Reference Range Interpretation Comments Alk Phos (test code = Alk Phos) 65 39-136 [facility] CenterPviufitRSLJJJOHXQYU7615-31-51 18:46:00 Test Item Value Reference Range Interpretation Comments Bili Total (test code = Bili Total) 0.3 0.2-1.3 [facility] CenterKengadrFWFMCEXONSEZ2723-31-52 18:46:00 Test Item Value Reference Range Interpretation Comments ALT (test code = ALT) 100 See_Comment [Auto mated message] The system which ge nerated this result transmit elizabeth reference range : <=65. The reference range was not used to interpr et this result as margaret l/abnormal. [facility] CenterKvluptbYZXRDHGTVOHO0866-64-05 18:46:00 Test Item Value Reference Range Interpretation Comments AST (test code = AST) 53 See_Comment [Auto mated message] The system which ge nerated this result transmit elizabeth reference range : <=37. The reference range was not used to interpr et this result as margaret l/abnormal. [facility] CenterZmugykqVFEFJNYBRSFI9309-50-38 18:46:00 Test Item Value Reference Range Interpretation Comments Total Protein (test code = Total 6.9 6.4-8.4 Protein) [facility] NorthwestWfamzlvQMSKRFQTRB9011-19-92 18:46:00 Test Item Value Reference Range Interpretation Comments Eosinophils (test code = 4.2 See_Comment [A utomated message] The Eosinophils) system which ge nerated this result tra nsmitted reference range : <=4.0. The reference r mitra was not used to int erpret this result as normal/abnormal . [facility] NorthwestFhwimaqGSWUHXTYLV9005-81-85 18:46:00 Test Item Value Reference Range Interpretation Comments Segs (test code = Segs) 56.4 45.0-75.0 [facility] NorthwestRfomiwvOWYTKYGJTP2855-83-27 18:46:00 Test Item Value Reference Range Interpretation Comments Monocytes (test code = Monocytes) 10.3 2.0-12.0 [facility] NorthwestEdkhsjjXLVRYTSFPL9083-24-48 18:46:00 Test Item Value Reference Range Interpretation Comments Lymphocytes (test code = Lymphocytes) 28.0 20.0-40.0 [facility] NorthwestOmiiwnwZNHAWNIQLU1425-35-15 18:46:00 Test Item Value Reference Range Interpretation Comments Monocytes # (test code 0.5 See_Comment [Aut omated message] The = Monocytes #) system which generated this result tra nsmitted reference range : <=0.8. The reference r mitra was not used to int erpret this result as normal/abnormal . [facility] NorthwestGkvlohkNPKJNJBJYR4620-40-68 18:46:00 Test Item Value Reference Range Interpretation Comments Basophils (test code = 1.1 See_Comment [Aut omated message] The Basophils) system which ge nerated this result tra nsmitted reference range : <=1.0. The reference r mitra was not used to int erpret this result as normal/abnormal . [facility] NorthwestDppteiwNHMYQJGTSG3595-84-32 18:46:00 Test Item Value Reference Range Interpretation Comments Lymphocytes # (test code = Lymphocytes 1.5 1.0-5.5 #) [facility] NorthwestTnmpjtnLDMXPNZGFI4512-06-92 18:46:00 Test Item Value Reference Range Interpretation Comments Segs-Bands # (test code = Segs-Bands #) 2.9 1.5-8.1 [facility] NorthwestJxqfbilENCRBQVPEB2457-03-00 18:46:00 Test Item Value Reference Range Interpretation Comments Eosinophils # (test code 0.2 See_Comment [A utomated message] The = Eosinophils #) system whic h generated this result tra nsmitted reference range : <=0.5. The reference r mitra was not used to int erpret this result as normal/abnormal . [facility] NorthwestZnpjdxvEZXQVKLWPL4853-56-47 18:46:00 Test Item Value Reference Range Interpretation Comments Basophils # (test code 0.1 See_Comment [Aut omated message] The = Basophils #) system which generated this result tra nsmitted reference range : <=0.2. The reference r mitra was not used to int erpret this result as normal/abnormal . [facility] NorthwestApgexccHLDILOJJTN2616-06-14 18:46:00 Test Item Value Reference Range Interpretation Comments PT (test code = PT) 11.2 s 12.0-14.7 [facility] NorthwestJqzcwumHVEMRNNFJQ1021-19-24 18:46:00 Test Item Value Reference Range Interpretation Comments INR (test code = INR) 0.82 0.85-1.17 [facility] NorthwestIebmliuXPSVNSLFRP2525-55-19 18:46:00 Test Item Value Reference Range Interpretation Comments PTT (test code = PTT) 28.6 s 22.9-35.8 [facility] NorthwestDqemtpaEXXMGCOEIX9664-93-25 18:46:00 Test Item Value Reference Range Interpretation Comments MPV (test code = MPV) 8.1 7.4-10.4 [facility] NorthwestLisznttZKYABQYUER5613-24-25 18:46:00 Test Item Value Reference Range Interpretation Comments Platelet (test code = Platelet) 301 133-450 [facility] NorthwestSwkllezDXVNVJWCHY4126-98-05 18:46:00 Test Item Value Reference Range Interpretation Comments RDW (test code = RDW) 14.5 11.5-14.5 [place] 146135-06-09 18:46:00 Test Item Value Reference Range Interpretation Comments RBC (test code = RBC) 4.84 4.70-6.10 [facility] NorthwestAfpwljjGLJLNKOMLT5250-04-92 18:46:00 Test Item Value Reference Range Interpretation Comments Hgb (test code = Hgb) 14.4 14.0-18.0 [facility] NorthwestUfgxnaoFTZKCRYZFL2131-93-36 18:46:00 Test Item Value Reference Range Interpretation Comments WBC (test code = WBC) 5.2 3.7-10.4 [facility] NorthwestWowbxjkQVNYEFGDGL1670-97-41 18:46:00 Test Item Value Reference Range Interpretation Comments MCH (test code = MCH) 29.8 pg 27.0-31.0 [facility] NorthwestWntfbcdVSBFMLASVM0312-61-89 18:46:00 Test Item Value Reference Range Interpretation Comments MCV (test code = MCV) 92.0 80.0-94.0 [facility] NorthwestUbejhiaNHTYXEJNMV8349-32-46 18:46:00 Test Item Value Reference Range Interpretation Comments Hct (test code = Hct) 44.5 42.0-54.0 [facility] NorthwestXzmmsabKNWGCCWRFS1295-31-09 18:46:00 Test Item Value Reference Range Interpretation Comments MCHC (test code = MCHC) 32.4 32.0-36.0 [facility]YusuyioOQYCYQNXSB7419-96-13 18:46:00 Test Item Value Reference Range Interpretation Comments [place]-Hep C Ab (test Negative *NA*(07/22/14 code = [place]-Hep C 1:46 PM) Ab) [facility] AND [id number] 18:46:00 Test Item Value Reference Range Interpretation Comments UA Urobilinogen (test code = UA <=1.0 mg/dL 0.1-1.0 Urobilinogen) [facility] AND [id number] 18:46:00 Test Item Value Reference Range Interpretation Comments UA Sq Epi (test code = UA Sq Epi) None Seen [facility] AND [id number] 18:46:00 Test Item Value Reference Range Interpretation Comments UA Leuk Est (test Negative (07/22/14 1:46 code = UA Leuk Est) PM) [facility] AND [id number] 18:46:00 Test Item Value Reference Range Interpretation Comments UA Nitrite (test code Negative (07/22/14 1:46 = UA Nitrite) PM) [facility] AND [id number] 18:46:00 Test Item Value Reference Range Interpretation Comments UA Blood (test code = Negative (07/22/14 1:46 UA Blood) PM) [facility] AND [id number] 18:46:00 Test Item Value Reference Range Interpretation Comments UA Ketones (test code = UA Negative mg/dL Ketones) [facility] AND [id number] 18:46:00 Test Item Value Reference Range Interpretation Comments UA Bili (test code = Negative *NA*(07/22/14 UA Bili) 1:46 PM) [facility] AND [id number] 18:46:00 Test Item Value Reference Range Interpretation Comments UA Bacteria (test code = UA Occasional /HPF Bacteria) [facility] AND [id number] 18:46:00 Test Item Value Reference Range Interpretation Comments UA RBC (test code = no gt See_Comment [Automa elizabeth message] The UA RBC) system which ge nerated this result transmit elizabeth reference range : <=2. The reference range was not used to interpr et this result as margaret l/abnormal. [facility] AND [id number] 18:46:00 Test Item Value Reference Range Interpretation Comments UA WBC (test code = 1 See_Comment [Automa elizabeth message] The UA WBC) system which ge nerated this result transmit elizabeth reference range : <=5. The reference range was not used to interpr et this result as margaret l/abnormal. [facility] AND [id number] 18:46:00 Test Item Value Reference Range Interpretation Comments UA Glucose (test code = UA Glucose) 30 mg/dL [facility] AND [id number] 18:46:00 Test Item Value Reference Range Interpretation Comments UA Protein (test code = UA Negative mg/dL Protein) [facility] AND [id number] 18:46:00 Test Item Value Reference Range Interpretation Comments UA pH (test code = UA pH) 6.5 5.0-8.0 [facility] AND [id number] 18:46:00 Test Item Value Reference Range Interpretation Comments UA Turbidity (test code = Clear (07/22/14 1:46 [facility]A Turbidity) PM) [facility] [id number] 18:46:00 Test Item Value Reference Range Interpretation Comments UA Spec Grav (test code = UA Spec Grav) 1.010 [facility] [id number] 18:46:00 Test Item Value Reference Range Interpretation Comments UA Color (test code = Light Yellow UA Color) *NA*(07/22/14 1:46 PM) [facility] [id number] 18:46:00 Test Item Value Reference Range Interpretation Comments Magnesium Lvl (test code = Magnesium 1.8 1.8-2.4 Lvl) [facility]icsYyaqypxFOCUJFPTUJID5839-98-85 18:46:00 Test Item Value Reference Range Interpretation Comments AGAP (test code = AGAP) 13.2 10.0-20.0 [facility] CenterWjfsyuiWGDXQEGVJWUN7101-11-61 18:46:00 Test Item Value Reference Range Interpretation Comments B/C Ratio (test code = B/C Ratio) 18 6-25 [facility] CenterByhdcapSAHBNTMKWMTG8025-83-54 18:46:00 Test Item Value Reference Range Interpretation Comments A/G Ratio (test code = A/G Ratio) 1.1 0.7-1.6 [facility]EpykhzmTEAZLOWSPSKF3164-56-85 18:46:00 Test Item Value Reference Range Interpretation Comments Globulin (test code = Globulin) 3.3 2.0-4.0 [facility]ervilleXxakgfhRPFYGAHGPCZM0949-19-58 18:46:00 Test Item Value Reference Range Interpretation Comments eGFR (test code = eGFR) 99 [facility] CenterCfuivzhBPSGGOPWKMFR0230-78-90 18:46:00 Test Item Value Reference Range Interpretation Comments Calcium Lvl (test code = Calcium Lvl) 9.0 8.5-10.5 [facility]icsAhafdksHJPNRAPJOOFH4682-99-85 18:46:00 Test Item Value Reference Range Interpretation Comments Chloride Lvl (test code = Chloride Lvl) 106 95-109 [facility] CenterNvoaqvnFVDKXAEXFEPA4697-73-60 18:46:00 Test Item Value Reference Range Interpretation Comments Creatinine Lvl (test code = Creatinine 0.9 0.5-1.4 Lvl) [facility] CenterNcogjrkQIBILWSMWBFM5949-19-93 18:46:00 Test Item Value Reference Range Interpretation Comments Potassium Lvl (test code = Potassium 4.2 3.5-5.1 Lvl) [facility] CenterEgbilkcHLZTKVDYJODR0006-98-68 18:46:00 Test Item Value Reference Range Interpretation Comments Sodium Lvl (test code = Sodium Lvl) 139 135-145 [facility] CenterQvlacazDBWOXWOJNQTL7029-51-21 18:46:00 Test Item Value Reference Range Interpretation Comments CO2 (test code = CO2) 24 24-32 [facility] CenterRzjdnawSWSYHFLMUISY1942-01-06 18:46:00 Test Item Value Reference Range Interpretation Comments BUN (test code = BUN) 16 7-22 [facility] CenterWpmgmpeVYOCWJMJGLTH4324-58-56 18:46:00 Test Item Value Reference Range Interpretation Comments Glucose Lvl (test code = Glucose Lvl) 141 70-99 [facility] CenterJierzipSUKHSOIREVNG8489-01-78 18:46:00 Test Item Value Reference Range Interpretation Comments Albumin Lvl (test code = Albumin Lvl) 3.6 3.5-5.0 [facility] CenterCqhvfgfRQRCQNIPOFBP1806-61-15 18:46:00 Test Item Value Reference Range Interpretation Comments Alk Phos (test code = Alk Phos) 65 39-136 [facility] CenterVpiizlwYJNDSIEGDSCA5540-12-29 18:46:00 Test Item Value Reference Range Interpretation Comments Bili Total (test code = Bili Total) 0.3 0.2-1.3 [facility] CenterOracvgcBAXZFBZNRXNU6728-46-15 18:46:00 Test Item Value Reference Range Interpretation Comments ALT (test code = ALT) 100 See_Comment [Auto mated message] The system which ge nerated this result transmit elizabeth reference range : <=65. The reference range was not used to interpr et this result as margaret l/abnormal. [facility] CenterRebbgvzBXOXSHOKTFMM1127-88-89 18:46:00 Test Item Value Reference Range Interpretation Comments AST (test code = AST) 53 See_Comment [Auto mated message] The system which ge nerated this result transmit elizabeth reference range : <=37. The reference range was not used to interpr et this result as margaret l/abnormal. [facility] CenterZaqsyhxUMCDVHGMOUPW9084-71-88 18:46:00 Test Item Value Reference Range Interpretation Comments Total Protein (test code = Total 6.9 6.4-8.4 Protein) [facility] NorthwestMrvrqwiCYUUNHYXDD6846-69-27 18:46:00 Test Item Value Reference Range Interpretation Comments Eosinophils (test code = 4.2 See_Comment [A utomated message] The Eosinophils) system which ge nerated this result tra nsmitted reference range : <=4.0. The reference r mitra was not used to int erpret this result as normal/abnormal . [facility] NorthwestNlhxnuxRWBKQVKAYP7851-35-48 18:46:00 Test Item Value Reference Range Interpretation Comments Segs (test code = Segs) 56.4 45.0-75.0 [facility] NorthwestXbtdulqVAXCVJHHUC8725-44-11 18:46:00 Test Item Value Reference Range Interpretation Comments Monocytes (test code = Monocytes) 10.3 2.0-12.0 [facility] NorthwestKwoozslEPRDJBHRIK4990-50-03 18:46:00 Test Item Value Reference Range Interpretation Comments Lymphocytes (test code = Lymphocytes) 28.0 20.0-40.0 [facility] NorthwestWkjylhiOTOQEXBCWJ4753-81-09 18:46:00 Test Item Value Reference Range Interpretation Comments Monocytes # (test code 0.5 See_Comment [Aut omated message] The = Monocytes #) system which generated this result tra nsmitted reference range : <=0.8. The reference r mitra was not used to int erpret this result as normal/abnormal . [facility] NorthwestWexpzhyZBCJLEEHNL4157-11-76 18:46:00 Test Item Value Reference Range Interpretation Comments Basophils (test code = 1.1 See_Comment [Aut omated message] The Basophils) system which ge nerated this result tra nsmitted reference range : <=1.0. The reference r mitra was not used to int erpret this result as normal/abnormal . [facility] NorthwestIannpfeHMXBYAPXBO3983-38-68 18:46:00 Test Item Value Reference Range Interpretation Comments Lymphocytes # (test code = Lymphocytes 1.5 1.0-5.5 #) [facility] NorthwestUorrmtgDWXNKXYMDJ6391-92-97 18:46:00 Test Item Value Reference Range Interpretation Comments Segs-Bands # (test code = Segs-Bands #) 2.9 1.5-8.1 [facility] NorthwestUgwvfflXTPCAGBRCI2546-57-32 18:46:00 Test Item Value Reference Range Interpretation Comments Eosinophils # (test code 0.2 See_Comment [A utomated message] The = Eosinophils #) system whic h generated this result tra nsmitted reference range : <=0.5. The reference r mitra was not used to int erpret this result as normal/abnormal . [facility] NorthwestChvyohgCGALGRFTOO6550-80-18 18:46:00 Test Item Value Reference Range Interpretation Comments Basophils # (test code 0.1 See_Comment [Aut omated message] The = Basophils #) system which generated this result tra nsmitted reference range : <=0.2. The reference r mitra was not used to int erpret this result as normal/abnormal . [facility] NorthwestPuoqotbVGYJTYQPYB0319-91-09 18:46:00 Test Item Value Reference Range Interpretation Comments PT (test code = PT) 11.2 s 12.0-14.7 [facility] NorthwestNfbwgwoLPNWIYXMGG1272-98-29 18:46:00 Test Item Value Reference Range Interpretation Comments INR (test code = INR) 0.82 0.85-1.17 [facility] NorthwestNktrnqhWZVBCANNJO0884-01-30 18:46:00 Test Item Value Reference Range Interpretation Comments PTT (test code = PTT) 28.6 s 22.9-35.8 [facility] NorthwestZzauwxxDCJYXYRAVN9780-50-41 18:46:00 Test Item Value Reference Range Interpretation Comments MPV (test code = MPV) 8.1 7.4-10.4 [facility] NorthwestUmjeilaEUVBNNSGIX4032-29-24 18:46:00 Test Item Value Reference Range Interpretation Comments Platelet (test code = Platelet) 301 133-450 [facility] NorthwestQexrmgwCHULYZCFKO5727-29-20 18:46:00 Test Item Value Reference Range Interpretation Comments RDW (test code = RDW) 14.5 11.5-14.5 [facility] NorthwestFnrynwhIUKWXNMKST2680-33-36 18:46:00 Test Item Value Reference Range Interpretation Comments RBC (test code = RBC) 4.84 4.70-6.10 [facility] NorthwestQopqanrZXJUBBODUU1252-48-14 18:46:00 Test Item Value Reference Range Interpretation Comments Hgb (test code = Hgb) 14.4 14.0-18.0 [facility] NorthwestDdwrnefLBJAMWMDDJ7222-34-74 18:46:00 Test Item Value Reference Range Interpretation Comments WBC (test code = WBC) 5.2 3.7-10.4 [facility] NorthwestGiivnicELGLTHLOHB1813-43-55 18:46:00 Test Item Value Reference Range Interpretation Comments MCH (test code = MCH) 29.8 pg 27.0-31.0 [facility] UkszjwkCMFYZJOHBY7277-72-13 18:46:00 Test Item Value Reference Range Interpretation Comments MCV (test code = MCV) 92.0 80.0-94.0 [facility] YqrtuhaLSUNGDHBHR0790-78-68 18:46:00 Test Item Value Reference Range Interpretation Comments Hct (test code = Hct) 44.5 42.0-54.0 [facility] CampusHfnlslnROFIYHWFRQ3352-68-62 18:46:00 Test Item Value Reference Range Interpretation Comments MCHC (test code = MCHC) 32.4 32.0-36.0 [facility] XrhpbryOKDMYXENSW4527-31-05 18:46:00 Test Item Value Reference Range Interpretation Comments [place]-Hep C Ab (test Negative *NA*(07/22/14 code = [place]-Hep C 1:46 PM) Ab) [facility] AND [id number] 18:46:00 Test Item Value Reference Range Interpretation Comments UA Urobilinogen (test code = UA <=1.0 mg/dL 0.1-1.0 Urobilinogen) [facility] AND [id number] 18:46:00 Test Item Value Reference Range Interpretation Comments UA Sq Epi (test code = UA Sq Epi) None Seen [facility] AND [id number] 18:46:00 Test Item Value Reference Range Interpretation Comments UA Leuk Est (test Negative (07/22/14 1:46 code = UA Leuk Est) PM) [facility] AND [id number] 18:46:00 Test Item Value Reference Range Interpretation Comments UA Nitrite (test code Negative (07/22/14 1:46 = UA Nitrite) PM) [facility] AND [id number] 18:46:00 Test Item Value Reference Range Interpretation Comments UA Blood (test code = Negative (07/22/14 1:46 UA Blood) PM) [facility] AND [id number] 18:46:00 Test Item Value Reference Range Interpretation Comments UA Ketones (test code = UA Negative mg/dL Ketones) [facility] AND [id number] 18:46:00 Test Item Value Reference Range Interpretation Comments UA Bili (test code = Negative *NA*(07/22/14 UA Bili) 1:46 PM) [facility] [id number] 18:46:00 Test Item Value Reference Range Interpretation Comments UA Bacteria (test code = UA Occasional /HPF Bacteria) [facility] [id number] 18:46:00 Test Item Value Reference Range Interpretation Comments UA RBC (test code = no gt See_Comment [Automa elizabeth message] The UA RBC) system which ge nerated this result transmit elizabeth reference range : <=2. The reference range was not used to interpr et this result as margaret l/abnormal. [facility] [id number] 18:46:00 Test Item Value Reference Range Interpretation Comments UA WBC (test code = 1 See_Comment [Automa elizabeth message] The UA WBC) system which ge nerated this result transmit elizabeth reference range : <=5. The reference range was not used to interpr et this result as margaret l/abnormal. [facility] AND [id number] 18:46:00 Test Item Value Reference Range Interpretation Comments UA Glucose (test code = UA Glucose) 30 mg/dL [facility] [id number] 18:46:00 Test Item Value Reference Range Interpretation Comments UA Protein (test code = UA Negative mg/dL Protein) [facility] [id number] 18:46:00 Test Item Value Reference Range Interpretation Comments UA pH (test code = UA pH) 6.5 5.0-8.0 [facility] AND [id number] 18:46:00 Test Item Value Reference Range Interpretation Comments UA Turbidity (test code = Clear (07/22/14 1:46 UA Turbidity) PM) [facility] [id number] 18:46:00 Test Item Value Reference Range Interpretation Comments UA Spec Grav (test code = UA Spec Grav) 1.010 [facility] [id number] 18:46:00 Test Item Value Reference Range Interpretation Comments UA Color (test code = Light Yellow UA Color) *NA*(07/22/14 1:46 PM) [facility] [id number] 18:46:00 Test Item Value Reference Range Interpretation Comments Magnesium Lvl (test code = Magnesium 1.8 1.8-2.4 Lvl) [facility] CenterMfjnpelVBGXKJOMDXDV4718-29-28 18:46:00 Test Item Value Reference Range Interpretation Comments AGAP (test code = AGAP) 13.2 10.0-20.0 [facility] CenterGsmjfunHPWAFBDNGZTT5867-21-46 18:46:00 Test Item Value Reference Range Interpretation Comments B/C Ratio (test code = B/C Ratio) 18 6-25 [facility] CenterIatdxnxZZPJCXFENNHK4986-75-29 18:46:00 Test Item Value Reference Range Interpretation Comments A/G Ratio (test code = A/G Ratio) 1.1 0.7-1.6 [facility] CenterBmsyxfsIOAHNOTSEUYJ1414-44-66 18:46:00 Test Item Value Reference Range Interpretation Comments Globulin (test code = Globulin) 3.3 2.0-4.0 [facility] CenterEmjpleiCYGOCLOCGKHW9182-12-50 18:46:00 Test Item Value Reference Range Interpretation Comments eGFR (test code = eGFR) 99 [facility] CenterElnelaoLTYNHMNAWPVR0988-91-06 18:46:00 Test Item Value Reference Range Interpretation Comments Calcium Lvl (test code = Calcium Lvl) 9.0 8.5-10.5 [facility] CenterBoqtslwGEFEKMQDRIUZ9434-33-93 18:46:00 Test Item Value Reference Range Interpretation Comments Chloride Lvl (test code = Chloride Lvl) 106 95-109 [facility] CenterGgrexzfFHRDPXXZRAZI0237-58-53 18:46:00 Test Item Value Reference Range Interpretation Comments Creatinine Lvl (test code = Creatinine 0.9 0.5-1.4 Lvl) [facility] CenterOpmqykdAZFQSXTYQMPE4822-44-16 18:46:00 Test Item Value Reference Range Interpretation Comments Potassium Lvl (test code = Potassium 4.2 3.5-5.1 Lvl) [facility] CenterLqleixxCHNLOMQWAFAP1459-40-91 18:46:00 Test Item Value Reference Range Interpretation Comments Sodium Lvl (test code = Sodium Lvl) 139 135-145 [facility] CenterOagzwyaDOYOZTENXXVU4868-24-69 18:46:00 Test Item Value Reference Range Interpretation Comments CO2 (test code = CO2) 24 24-32 [facility] CenterYzdfzqpCMTOSNZMMVYD3312-45-47 18:46:00 Test Item Value Reference Range Interpretation Comments BUN (test code = BUN) 16 7-22 [facility] CenterAzexaqsBSSHJZSHMLCR2549-93-79 18:46:00 Test Item Value Reference Range Interpretation Comments Glucose Lvl (test code = Glucose Lvl) 141 70-99 [facility] CenterHxlyytaVFAQENKBDESS3597-31-99 18:46:00 Test Item Value Reference Range Interpretation Comments Albumin Lvl (test code = Albumin Lvl) 3.6 3.5-5.0 [facility] CenterHwpjlpmDLRFIYKMUMYJ3419-98-50 18:46:00 Test Item Value Reference Range Interpretation Comments Alk Phos (test code = Alk Phos) 65 39-136 [facility] CenterJsgexxeSHNIBYWQMKFM2991-03-79 18:46:00 Test Item Value Reference Range Interpretation Comments Bili Total (test code = Bili Total) 0.3 0.2-1.3 [facility] CenterAnfiajwVBQWMWBNDEHJ2286-88-49 18:46:00 Test Item Value Reference Range Interpretation Comments ALT (test code = ALT) 100 See_Comment [Auto mated message] The system which ge nerated this result transmit elizabeth reference range : <=65. The reference range was not used to interpr et this result as margaret l/abnormal. [facility]OjlzztaYDSRMTQRESLN6186-12-05 18:46:00 Test Item Value Reference Range Interpretation Comments AST (test code = AST) 53 See_Comment [Auto mated message] The system which ge nerated this result transmit elizabeth reference range : <=37. The reference range was not used to interpr et this result as margaret l/abnormal. [facility] CenterXehcwzmHZRHAXKLQITN2005-79-58 18:46:00 Test Item Value Reference Range Interpretation Comments Total Protein (test code = Total 6.9 6.4-8.4 Protein) [facility] NorthwestNavpwhwAXKNPTMIHX5729-19-71 18:46:00 Test Item Value Reference Range Interpretation Comments Eosinophils (test code = 4.2 See_Comment [A utomated message] The Eosinophils) system which ge nerated this result tra nsmitted reference range : <=4.0. The reference r mitra was not used to int erpret this result as normal/abnormal . [facility] NorthwestSlsjgmwROCFQTIHLJ2067-89-21 18:46:00 Test Item Value Reference Range Interpretation Comments Segs (test code = Segs) 56.4 45.0-75.0 [facility] NorthwestGchxswhCDHXULJMCL4329-45-14 18:46:00 Test Item Value Reference Range Interpretation Comments Monocytes (test code = Monocytes) 10.3 2.0-12.0 [facility] NorthwestWmpdvvgYDQFBYPWUE2359-50-31 18:46:00 Test Item Value Reference Range Interpretation Comments Lymphocytes (test code = Lymphocytes) 28.0 20.0-40.0 [facility] NorthwestNbdhiqbDLXSGEYCEX1775-75-46 18:46:00 Test Item Value Reference Range Interpretation Comments Monocytes # (test code 0.5 See_Comment [Aut omated message] The = Monocytes #) system which generated this result tra nsmitted reference range : <=0.8. The reference r mitra was not used to int erpret this result as normal/abnormal . [facility] NorthwestEorsdshYZQKILMARI9476-94-90 18:46:00 Test Item Value Reference Range Interpretation Comments Basophils (test code = 1.1 See_Comment [Aut omated message] The Basophils) system which ge nerated this result tra nsmitted reference range : <=1.0. The reference r mitra was not used to int erpret this result as normal/abnormal . [facility] NorthwestVxdzrnlEEHRZWENEQ0796-14-11 18:46:00 Test Item Value Reference Range Interpretation Comments Lymphocytes # (test code = Lymphocytes 1.5 1.0-5.5 #) [facility] NorthwestLppootqOLIHDRSNXZ8963-60-69 18:46:00 Test Item Value Reference Range Interpretation Comments Segs-Bands # (test code = Segs-Bands #) 2.9 1.5-8.1 [facility] NorthwestAympehoOYDDULNVMT5559-15-80 18:46:00 Test Item Value Reference Range Interpretation Comments Eosinophils # (test code 0.2 See_Comment [A utomated message] The = Eosinophils #) system whic h generated this result tra nsmitted reference range : <=0.5. The reference r mitra was not used to int erpret this result as normal/abnormal . [facility] NorthwestVbmphkxTZTPGFSEKF7813-86-07 18:46:00 Test Item Value Reference Range Interpretation Comments Basophils # (test code 0.1 See_Comment [Aut omated message] The = Basophils #) system which generated this result tra nsmitted reference range : <=0.2. The reference r mitra was not used to int erpret this result as normal/abnormal . [facility] NorthwestGdalcueOEVHUEFYOS3234-69-73 18:46:00 Test Item Value Reference Range Interpretation Comments PT (test code = PT) 11.2 s 12.0-14.7 [facility] NorthwestXvfdmwrLOGFFCFKJK9217-96-43 18:46:00 Test Item Value Reference Range Interpretation Comments INR (test code = INR) 0.82 0.85-1.17 [facility] NorthwestGlelbfbSIGCFXMFBO8968-56-62 18:46:00 Test Item Value Reference Range Interpretation Comments PTT (test code = PTT) 28.6 s 22.9-35.8 [facility] NorthwestLruqecnVUJYAFRXTX9399-36-74 18:46:00 Test Item Value Reference Range Interpretation Comments MPV (test code = MPV) 8.1 7.4-10.4 [facility] NorthwestJjhdezeBPKCHREIMC5555-43-34 18:46:00 Test Item Value Reference Range Interpretation Comments Platelet (test code = Platelet) 301 133-450 [facility] NorthwestVsffkrlABEOHIIJXY4395-06-85 18:46:00 Test Item Value Reference Range Interpretation Comments RDW (test code = RDW) 14.5 11.5-14.5 [facility] NorthwestGtdefsxMYQQBASFXW3364-98-74 18:46:00 Test Item Value Reference Range Interpretation Comments RBC (test code = RBC) 4.84 4.70-6.10 [facility] NorthwestEjtxvxgZBWVOKAAVF1333-84-71 18:46:00 Test Item Value Reference Range Interpretation Comments Hgb (test code = Hgb) 14.4 14.0-18.0 [facility] NorthwestMqjplxwBGHJIJHJAJ5341-10-65 18:46:00 Test Item Value Reference Range Interpretation Comments WBC (test code = WBC) 5.2 3.7-10.4 [facility] NorthwestDcixgucZSBKGIORSW4374-30-94 18:46:00 Test Item Value Reference Range Interpretation Comments MCH (test code = MCH) 29.8 pg 27.0-31.0 [facility] NorthwestGowjcnkZSBBEPUXYQ2466-61-42 18:46:00 Test Item Value Reference Range Interpretation Comments MCV (test code = MCV) 92.0 80.0-94.0 [facility] NorthwestShijakvBEHNZNZGTY1241-08-67 18:46:00 Test Item Value Reference Range Interpretation Comments Hct (test code = Hct) 44.5 42.0-54.0 [facility] NorthwestNlsqkvxHJGZPSQLJY3836-92-70 18:46:00 Test Item Value Reference Range Interpretation Comments MCHC (test code = MCHC) 32.4 32.0-36.0 [facility]HkrktguNTWQCUGGCT9770-82-56 18:46:00 Test Item Value Reference Range Interpretation Comments [place]-Hep C Ab (test Negative *NA*(07/22/14 code = [place]-Hep C 1:46 PM) Ab) [facility] AND [id number] 18:46:00 Test Item Value Reference Range Interpretation Comments UA Urobilinogen (test code = UA <=1.0 mg/dL 0.1-1.0 Urobilinogen) [facility] AND [id number] 18:46:00 Test Item Value Reference Range Interpretation Comments UA Sq Epi (test code = UA Sq Epi) None Seen [facility] AND [id number] 18:46:00 Test Item Value Reference Range Interpretation Comments UA Leuk Est (test Negative (07/22/14 1:46 code = UA Leuk Est) PM) [facility] AND [id number] 18:46:00 Test Item Value Reference Range Interpretation Comments UA Nitrite (test code Negative (07/22/14 1:46 = UA Nitrite) PM) [facility] AND [id number] 18:46:00 Test Item Value Reference Range Interpretation Comments UA Blood (test code = Negative (07/22/14 1:46 UA Blood) PM) [facility] AND [id number] 18:46:00 Test Item Value Reference Range Interpretation Comments UA Ketones (test code = UA Negative mg/dL Ketones) [facility] AND [id number] 18:46:00 Test Item Value Reference Range Interpretation Comments UA Bili (test code = Negative *NA*(07/22/14 UA Bili) 1:46 PM) [facility] AND [id number] 18:46:00 Test Item Value Reference Range Interpretation Comments UA Bacteria (test code = UA Occasional /HPF Bacteria) [facility] AND [id number] 18:46:00 Test Item Value Reference Range Interpretation Comments UA RBC (test code = no gt See_Comment [Automa elizabeth message] The UA RBC) system which ge nerated this result transmit elizabeth reference range : <=2. The reference range was not used to interpr et this result as margaret l/abnormal. [facility] AND [id number] 18:46:00 Test Item Value Reference Range Interpretation Comments UA WBC (test code = 1 See_Comment [Automa elizabeth message] The UA WBC) system which ge nerated this result transmit elizabeth reference range : <=5. The reference range was not used to interpr et this result as margaret l/abnormal. [facility] AND [id number] 18:46:00 Test Item Value Reference Range Interpretation Comments UA Glucose (test code = UA Glucose) 30 mg/dL [facility] AND [id number] 18:46:00 Test Item Value Reference Range Interpretation Comments UA Protein (test code = UA Negative mg/dL Protein) [facility] AND [id number] 18:46:00 Test Item Value Reference Range Interpretation Comments UA pH (test code = UA pH) 6.5 5.0-8.0 [facility] AND [id number] 18:46:00 Test Item Value Reference Range Interpretation Comments UA Turbidity (test code = Clear (07/22/14 1:46 UA Turbidity) PM) [facility] AND [id number] 18:46:00 Test Item Value Reference Range Interpretation Comments UA Spec Grav (test code = UA Spec Grav) 1.010 [facility] AND [id number] 18:46:00 Test Item Value Reference Range Interpretation Comments UA Color (test code = Light Yellow UA Color) *NA*(07/22/14 1:46 PM) [facility] [id number] 18:46:00 Test Item Value Reference Range Interpretation Comments Magnesium Lvl (test code = Magnesium 1.8 1.8-2.4 Lvl) [facility]qwuvvqBLKGUYKQAQTU2815-75-36 18:46:00 Test Item Value Reference Range Interpretation Comments AGAP (test code = AGAP) 13.2 10.0-20.0 [facility]LzzbmkwAIVLKPMDAXNO7946-85-52 18:46:00 Test Item Value Reference Range Interpretation Comments B/C Ratio (test code = B/C Ratio) 18 6-25 [facility] CenterSbmpyzxEKCACPGLQQSE4592-83-42 18:46:00 Test Item Value Reference Range Interpretation Comments A/G Ratio (test code = A/G Ratio) 1.1 0.7-1.6 [facility]JkntjzdRQCMVCXJGUAH9535-54-84 18:46:00 Test Item Value Reference Range Interpretation Comments Globulin (test code = Globulin) 3.3 2.0-4.0 [facility] CenterSqmreydEXVKCSUXLTPN4218-26-77 18:46:00 Test Item Value Reference Range Interpretation Comments eGFR (test code = eGFR) 99 [facility] CenterDraamqfQXBVEJOPANCK5815-56-28 18:46:00 Test Item Value Reference Range Interpretation Comments Calcium Lvl (test code = Calcium Lvl) 9.0 8.5-10.5 [facility] CenterEvrfedhHJVWLKKIVIOE4992-34-24 18:46:00 Test Item Value Reference Range Interpretation Comments Chloride Lvl (test code = Chloride Lvl) 106 95-109 [facility] CenterAskjxvyCEAAESHKSAXZ1101-59-19 18:46:00 Test Item Value Reference Range Interpretation Comments Creatinine Lvl (test code = Creatinine 0.9 0.5-1.4 Lvl) [facility] CenterCixobrfPBTWPBTIHNCF9357-43-61 18:46:00 Test Item Value Reference Range Interpretation Comments Potassium Lvl (test code = Potassium 4.2 3.5-5.1 Lvl) [facility] CenterHaiteblJXMKMNIMSXIQ8718-57-22 18:46:00 Test Item Value Reference Range Interpretation Comments Sodium Lvl (test code = Sodium Lvl) 139 135-145 [facility] CenterUmcwcmgFYDOKBMHVGTU4694-07-60 18:46:00 Test Item Value Reference Range Interpretation Comments CO2 (test code = CO2) 24 24-32 [facility] CenterQttyszqYENQFKLTCUAK0002-47-56 18:46:00 Test Item Value Reference Range Interpretation Comments BUN (test code = BUN) 16 7-22 [facility] CenterLeyilqbZIUEEVWSQWDO1843-64-24 18:46:00 Test Item Value Reference Range Interpretation Comments Glucose Lvl (test code = Glucose Lvl) 141 70-99 [facility] CenterEyampvcGXVCRKXUZEAD1697-34-93 18:46:00 Test Item Value Reference Range Interpretation Comments Albumin Lvl (test code = Albumin Lvl) 3.6 3.5-5.0 [facility] CenterHpgabkwKCPYXAYMTWXI6311-61-04 18:46:00 Test Item Value Reference Range Interpretation Comments Alk Phos (test code = Alk Phos) 65 39-136 [facility] CenterSvukheyYQIMJWNUWCXB5045-97-16 18:46:00 Test Item Value Reference Range Interpretation Comments Bili Total (test code = Bili Total) 0.3 0.2-1.3 [facility] CenterGyrxzmxHGHBMKNJGZTX9588-04-55 18:46:00 Test Item Value Reference Range Interpretation Comments ALT (test code = ALT) 100 See_Comment [Auto mated message] The system which ge nerated this result transmit elizabeth reference range : <=65. The reference range was not used to interpr et this result as margaret l/abnormal. [facility] CenterRqgenmkKAUNVZBITJVH5663-48-78 18:46:00 Test Item Value Reference Range Interpretation Comments AST (test code = AST) 53 See_Comment [Auto mated message] The system which ge nerated this result transmit elizabeth reference range : <=37. The reference range was not used to interpr et this result as margaret l/abnormal. [facility] CenterQlmwverNDCDYLJUHNMH1026-00-09 18:46:00 Test Item Value Reference Range Interpretation Comments Total Protein (test code = Total 6.9 6.4-8.4 Protein) [facility] NorthwestLnihfjmTNRXSIOXQB5793-71-36 18:46:00 Test Item Value Reference Range Interpretation Comments Eosinophils (test code = 4.2 See_Comment [A utomated message] The Eosinophils) system which ge nerated this result tra nsmitted reference range : <=4.0. The reference r mitra was not used to int erpret this result as normal/abnormal . [facility] NorthwestSymfkepCZTTMVLDRD5543-42-09 18:46:00 Test Item Value Reference Range Interpretation Comments Segs (test code = Segs) 56.4 45.0-75.0 [facility] NorthwestPzvmnqeVCTKYPVLNB7880-30-14 18:46:00 Test Item Value Reference Range Interpretation Comments Monocytes (test code = Monocytes) 10.3 2.0-12.0 [facility] NorthwestAbbaepnTWIMYHZZZA5314-91-37 18:46:00 Test Item Value Reference Range Interpretation Comments Lymphocytes (test code = Lymphocytes) 28.0 20.0-40.0 [facility] NorthwestXxzdkxjNXDWOQCTAB6670-60-97 18:46:00 Test Item Value Reference Range Interpretation Comments Monocytes # (test code 0.5 See_Comment [Aut omated message] The = Monocytes #) system which generated this result tra nsmitted reference range : <=0.8. The reference r mitra was not used to int erpret this result as normal/abnormal . [facility] NorthwestUwvxdsbEGOSRKHFMZ6006-40-06 18:46:00 Test Item Value Reference Range Interpretation Comments Basophils (test code = 1.1 See_Comment [Aut omated message] The Basophils) system which ge nerated this result tra nsmitted reference range : <=1.0. The reference r mitra was not used to int erpret this result as normal/abnormal . [facility] NorthwestGtjiqfyMHAUQOGRKG5056-96-87 18:46:00 Test Item Value Reference Range Interpretation Comments Lymphocytes # (test code = Lymphocytes 1.5 1.0-5.5 #) [facility] NorthwestNzvoiwlYYHKOQXNCQ3210-60-84 18:46:00 Test Item Value Reference Range Interpretation Comments Segs-Bands # (test code = Segs-Bands #) 2.9 1.5-8.1 [facility] NorthwestCuwlkvwKBRFIXXDRO2148-33-41 18:46:00 Test Item Value Reference Range Interpretation Comments Eosinophils # (test code 0.2 See_Comment [A utomated message] The = Eosinophils #) system whic h generated this result tra nsmitted reference range : <=0.5. The reference r mitra was not used to int erpret this result as normal/abnormal . [facility] NorthwestFfnqkqrWKPBTKCRBL4655-41-16 18:46:00 Test Item Value Reference Range Interpretation Comments Basophils # (test code 0.1 See_Comment [Aut omated message] The = Basophils #) system which generated this result tra nsmitted reference range : <=0.2. The reference r mitra was not used to int erpret this result as normal/abnormal . [facility] NorthwestPeiwjocXYZEGNEAYL8434-35-58 18:46:00 Test Item Value Reference Range Interpretation Comments PT (test code = PT) 11.2 s 12.0-14.7 [facility] NorthwestBwuewydWKLALHMUWV8970-33-16 18:46:00 Test Item Value Reference Range Interpretation Comments INR (test code = INR) 0.82 0.85-1.17 [facility] NorthwestNxzuzfdJRMLUQRFVF7804-67-07 18:46:00 Test Item Value Reference Range Interpretation Comments PTT (test code = PTT) 28.6 s 22.9-35.8 [facility] NorthwestBowuwxvZKHPPMNCQO5204-71-53 18:46:00 Test Item Value Reference Range Interpretation Comments MPV (test code = MPV) 8.1 7.4-10.4 [facility] NorthwestHlfoplzBZCEHOUHPR9230-79-43 18:46:00 Test Item Value Reference Range Interpretation Comments Platelet (test code = Platelet) 301 133-450 [facility] NorthwestIedjhsdDTARJNZUDL3284-57-63 18:46:00 Test Item Value Reference Range Interpretation Comments RDW (test code = RDW) 14.5 11.5-14.5 [facility] NorthwestClawiedGHLIFQCBNL7594-12-24 18:46:00 Test Item Value Reference Range Interpretation Comments RBC (test code = RBC) 4.84 4.70-6.10 [facility] NorthwestIbuegpeBRAMBSIAXA4820-24-44 18:46:00 Test Item Value Reference Range Interpretation Comments Hgb (test code = Hgb) 14.4 14.0-18.0 [facility] NorthwestKrfukteFPGCMNHNHI9565-75-17 18:46:00 Test Item Value Reference Range Interpretation Comments WBC (test code = WBC) 5.2 3.7-10.4 [facility] NorthwestOhcphmpIPRRFBYKYM1859-66-01 18:46:00 Test Item Value Reference Range Interpretation Comments MCH (test code = MCH) 29.8 pg 27.0-31.0 [facility] NorthwestZfbeyibCIPUBJYUEI6674-73-60 18:46:00 Test Item Value Reference Range Interpretation Comments MCV (test code = MCV) 92.0 80.0-94.0 [facility] NorthwestPdqiepqHFCDZCOGQU2984-97-51 18:46:00 Test Item Value Reference Range Interpretation Comments Hct (test code = Hct) 44.5 42.0-54.0 [facility] NorthwestPejqwypKWOIWBWLWA1824-94-59 18:46:00 Test Item Value Reference Range Interpretation Comments MCHC (test code = MCHC) 32.4 32.0-36.0 [facility] CampusEmnsvnrLSAMPYITCO7408-32-46 18:46:00 Test Item Value Reference Range Interpretation Comments [place]-Hep C Ab (test Negative *NA*(07/22/14 code = [place]-Hep C 1:46 PM) Ab) [facility] AND [id number] 18:46:00 Test Item Value Reference Range Interpretation Comments UA Urobilinogen (test code = UA <=1.0 mg/dL 0.1-1.0 Urobilinogen) [facility] AND [id number] 18:46:00 Test Item Value Reference Range Interpretation Comments UA Sq Epi (test code = UA Sq Epi) None Seen [facility] AND [id number] 18:46:00 Test Item Value Reference Range Interpretation Comments UA Leuk Est (test Negative (07/22/14 1:46 code = UA Leuk Est) PM) [facility] AND [id number] 18:46:00 Test Item Value Reference Range Interpretation Comments UA Nitrite (test code Negative (07/22/14 1:46 = UA Nitrite) PM) [facility] AND [id number] 18:46:00 Test Item Value Reference Range Interpretation Comments UA Blood (test code = Negative (07/22/14 1:46 UA Blood) PM) [facility] AND [id number] 18:46:00 Test Item Value Reference Range Interpretation Comments UA Ketones (test code = UA Negative mg/dL Ketones) [facility] AND [id number] 18:46:00 Test Item Value Reference Range Interpretation Comments UA Bili (test code = Negative *NA*(07/22/14 UA Bili) 1:46 PM) [facility] AND [id number] 18:46:00 Test Item Value Reference Range Interpretation Comments UA Bacteria (test code = UA Occasional /HPF Bacteria) [facility] AND [id number] 18:46:00 Test Item Value Reference Range Interpretation Comments UA RBC (test code = no gt See_Comment [Automa elizabeth message] The UA RBC) system which ge nerated this result transmit elizabeth reference range : <=2. The reference range was not used to interpr et this result as margaret l/abnormal. [facility] AND [id number] 18:46:00 Test Item Value Reference Range Interpretation Comments UA WBC (test code = 1 See_Comment [Automa elizabeth message] The UA WBC) system which ge nerated this result transmit elizabeth reference range : <=5. The reference range was not used to interpr et this result as margaret l/abnormal. [facility] AND [id number] 18:46:00 Test Item Value Reference Range Interpretation Comments UA Glucose (test code = UA Glucose) 30 mg/dL [facility] AND [id number] 18:46:00 Test Item Value Reference Range Interpretation Comments UA Protein (test code = UA Negative mg/dL Protein) [facility] AND [id number] 18:46:00 Test Item Value Reference Range Interpretation Comments UA pH (test code = UA pH) 6.5 5.0-8.0 [facility] [id number] 18:46:00 Test Item Value Reference Range Interpretation Comments UA Turbidity (test code = Clear (07/22/14 1:46 UA Turbidity) PM) [facility] AND [id number] 18:46:00 Test Item Value Reference Range Interpretation Comments UA Spec Grav (test code = UA Spec Grav) 1.010 [facility] AND [id number] 18:46:00 Test Item Value Reference Range Interpretation Comments UA Color (test code = Light Yellow UA Color) *NA*(07/22/14 1:46 PM) [facility] [id number] 18:46:00 Test Item Value Reference Range Interpretation Comments Magnesium Lvl (test code = Magnesium 1.8 1.8-2.4 Lvl) [facility]DhmmxmoCXIIESCWZVKO7276-48-26 18:46:00 Test Item Value Reference Range Interpretation Comments AGAP (test code = AGAP) 13.2 10.0-20.0 [facility] CenterGmjaeeeZIRJQHLKFPGM8960-32-79 18:46:00 Test Item Value Reference Range Interpretation Comments B/C Ratio (test code = B/C Ratio) 18 6-25 [facility] CenterKoqkskpGPXHQHDWFKWS7404-88-59 18:46:00 Test Item Value Reference Range Interpretation Comments A/G Ratio (test code = A/G Ratio) 1.1 0.7-1.6 [facility] CenterQnkulxsACRNRFLVSGUR9763-48-18 18:46:00 Test Item Value Reference Range Interpretation Comments Globulin (test code = Globulin) 3.3 2.0-4.0 [facility] CenterOgwpzowPZDOQJOQMOMQ7840-53-12 18:46:00 Test Item Value Reference Range Interpretation Comments eGFR (test code = eGFR) 99 [facility] CenterLsaacrlDTWLAGCSOWBD5683-74-50 18:46:00 Test Item Value Reference Range Interpretation Comments Calcium Lvl (test code = Calcium Lvl) 9.0 8.5-10.5 [facility] CenterFkhvtfpVEYFZDUMUBAY3543-75-14 18:46:00 Test Item Value Reference Range Interpretation Comments Chloride Lvl (test code = Chloride Lvl) 106 95-109 [facility] CenterObqpmmxOSZSGKAJSRAE8760-02-79 18:46:00 Test Item Value Reference Range Interpretation Comments Creatinine Lvl (test code = Creatinine 0.9 0.5-1.4 Lvl) [facility] CenterTixdntxMXINFRHNKSUA2360-27-89 18:46:00 Test Item Value Reference Range Interpretation Comments Potassium Lvl (test code = Potassium 4.2 3.5-5.1 Lvl) [facility] CenterXnxcjttPPJDKZTCHJIY3137-90-28 18:46:00 Test Item Value Reference Range Interpretation Comments Sodium Lvl (test code = Sodium Lvl) 139 135-145 [facility] CenterXwiubbmCTIRMYQYYPEK2932-63-28 18:46:00 Test Item Value Reference Range Interpretation Comments CO2 (test code = CO2) 24 24-32 [facility] CenterYbhtqirRDUCUCBEWPQU2501-60-62 18:46:00 Test Item Value Reference Range Interpretation Comments BUN (test code = BUN) 16 7-22 [facility] CenterPntiybdABAVWINKOXEZ3798-67-80 18:46:00 Test Item Value Reference Range Interpretation Comments Glucose Lvl (test code = Glucose Lvl) 141 70-99 [facility] CenterJlddxviVSBGOINMZGPD7434-71-39 18:46:00 Test Item Value Reference Range Interpretation Comments Albumin Lvl (test code = Albumin Lvl) 3.6 3.5-5.0 [facility] CenterCtgqiaxNGKIOEABYQZH0613-46-88 18:46:00 Test Item Value Reference Range Interpretation Comments Alk Phos (test code = Alk Phos) 65 39-136 [facility] CenterTjzwraxUJCOJZXYNILD9642-31-93 18:46:00 Test Item Value Reference Range Interpretation Comments Bili Total (test code = Bili Total) 0.3 0.2-1.3 [facility] CenterOojuevoAUYZUDHCPSYT4455-63-96 18:46:00 Test Item Value Reference Range Interpretation Comments ALT (test code = ALT) 100 See_Comment [Auto mated message] The system which ge nerated this result transmit elizabeth reference range : <=65. The reference range was not used to interpr et this result as margaret l/abnormal. [facility] CenterDonyrhkJNOTQILRWDUM1218-59-77 18:46:00 Test Item Value Reference Range Interpretation Comments AST (test code = AST) 53 See_Comment [Auto mated message] The system which ge nerated this result transmit elizabeth reference range : <=37. The reference range was not used to interpr et this result as margaret l/abnormal. [facility]XwgulhgWMKPKGSGKHZE1475-43-36 18:46:00 Test Item Value Reference Range Interpretation Comments Total Protein (test code = Total 6.9 6.4-8.4 Protein) [facility] NorthwestWiadbosIFHGYUTBWV7425-53-33 18:46:00 Test Item Value Reference Range Interpretation Comments Eosinophils (test code = 4.2 See_Comment [A utomated message] The Eosinophils) system which ge nerated this result tra nsmitted reference range : <=4.0. The reference r mitra was not used to int erpret this result as normal/abnormal . [facility] NorthwestXycuckvPJFGGIXBDM1763-21-58 18:46:00 Test Item Value Reference Range Interpretation Comments Segs (test code = Segs) 56.4 45.0-75.0 [facility] NorthwestGlucwxvKFPIAKDDVR0246-51-85 18:46:00 Test Item Value Reference Range Interpretation Comments Monocytes (test code = Monocytes) 10.3 2.0-12.0 [facility] NorthwestUfwozarZVMXCNHNQQ8863-50-37 18:46:00 Test Item Value Reference Range Interpretation Comments Lymphocytes (test code = Lymphocytes) 28.0 20.0-40.0 [facility] NorthwestXmdzdngGARGVBWJIY0030-35-36 18:46:00 Test Item Value Reference Range Interpretation Comments Monocytes # (test code 0.5 See_Comment [Aut omated message] The = Monocytes #) system which generated this result tra nsmitted reference range : <=0.8. The reference r mitra was not used to int erpret this result as normal/abnormal . [facility] NorthwestRdimuzjWEWNSZJGTX2169-09-86 18:46:00 Test Item Value Reference Range Interpretation Comments Basophils (test code = 1.1 See_Comment [Aut omated message] The Basophils) system which ge nerated this result tra nsmitted reference range : <=1.0. The reference r mitra was not used to int erpret this result as normal/abnormal . [facility] NorthwestKvtdhydCPXPXJNECL8424-48-10 18:46:00 Test Item Value Reference Range Interpretation Comments Lymphocytes # (test code = Lymphocytes 1.5 1.0-5.5 #) [facility] NorthwestTyppdloLNKHEMAADQ3806-10-08 18:46:00 Test Item Value Reference Range Interpretation Comments Segs-Bands # (test code = Segs-Bands #) 2.9 1.5-8.1 [facility] NorthwestPpulkdlIVVBYYBVEM5551-27-44 18:46:00 Test Item Value Reference Range Interpretation Comments Eosinophils # (test code 0.2 See_Comment [A utomated message] The = Eosinophils #) system whic h generated this result tra nsmitted reference range : <=0.5. The reference r mitra was not used to int erpret this result as normal/abnormal . [facility] NorthwestXixfrfqZIFDOZGJMD9137-74-33 18:46:00 Test Item Value Reference Range Interpretation Comments Basophils # (test code 0.1 See_Comment [Aut omated message] The = Basophils #) system which generated this result tra nsmitted reference range : <=0.2. The reference r mitra was not used to int erpret this result as normal/abnormal . [facility] NorthwestGqofcxeVTPBHEXEFT0224-38-03 18:46:00 Test Item Value Reference Range Interpretation Comments PT (test code = PT) 11.2 s 12.0-14.7 [facility] NorthwestJjfxozrSTMIRGVIXT2840-61-94 18:46:00 Test Item Value Reference Range Interpretation Comments INR (test code = INR) 0.82 0.85-1.17 [facility] NorthwestIpnfqveRBUVVVHLCC0609-09-22 18:46:00 Test Item Value Reference Range Interpretation Comments PTT (test code = PTT) 28.6 s 22.9-35.8 [facility] NorthwestTgxjviyMZDGQNZKJV0600-46-48 18:46:00 Test Item Value Reference Range Interpretation Comments MPV (test code = MPV) 8.1 7.4-10.4 [facility] NorthwestEgfinzjABQSGTTGSZ3711-99-28 18:46:00 Test Item Value Reference Range Interpretation Comments Platelet (test code = Platelet) 301 133-450 [facility] NorthwestGxysmafHYQBRVZNYC6342-52-17 18:46:00 Test Item Value Reference Range Interpretation Comments RDW (test code = RDW) 14.5 11.5-14.5 [facility] NorthwestWgwlgdhBWWCTBEGWM9181-17-24 18:46:00 Test Item Value Reference Range Interpretation Comments RBC (test code = RBC) 4.84 4.70-6.10 [facility] NorthwestEfyeynsZLZABFSJBW4623-17-97 18:46:00 Test Item Value Reference Range Interpretation Comments Hgb (test code = Hgb) 14.4 14.0-18.0 [facility] CampusFgpxkanMPHUEPVFMR7498-90-68 18:46:00 Test Item Value Reference Range Interpretation Comments WBC (test code = WBC) 5.2 3.7-10.4 [facility]fz[facility]wsOVURZOTSXN7585-15-96 18:46:00 Test Item Value Reference Range Interpretation Comments MCH (test code = MCH) 29.8 pg 27.0-31.0 [facility] HospitalXnltoojOJDMVYGWXZ4807-08-42 18:46:00 Test Item Value Reference Range Interpretation Comments MCV (test code = MCV) 92.0 80.0-94.0 [facility] HospitalBkseltwHOQCYFLYSJ6862-91-65 18:46:00 Test Item Value Reference Range Interpretation Comments Hct (test code = Hct) 44.5 42.0-54.0 [facility] HospitalCvllrltRMOFCKMYMN3660-37-71 18:46:00 Test Item Value Reference Range Interpretation Comments MCHC (test code = MCHC) 32.4 32.0-36.0 [facility] CampusTjwiwoyZASRNUDOOC5970-59-64 18:46:00 Test Item Value Reference Range Interpretation Comments [place]-Hep C Ab (test Negative *NA*(07/22/14 code = [place]-Hep C 1:46 PM) Ab) [facility] AND [id number] 18:46:00 Test Item Value Reference Range Interpretation Comments UA Urobilinogen (test code = UA <=1.0 mg/dL 0.1-1.0 Urobilinogen) [facility] AND [id number] 18:46:00 Test Item Value Reference Range Interpretation Comments UA Sq Epi (test code = UA Sq Epi) None Seen [facility] AND [id number] 18:46:00 Test Item Value Reference Range Interpretation Comments UA Leuk Est (test Negative (07/22/14 1:46 code = UA Leuk Est) PM) [facility] AND [id number] 18:46:00 Test Item Value Reference Range Interpretation Comments UA Nitrite (test code Negative (07/22/14 1:46 = UA Nitrite) PM) [facility] AND [id number] 18:46:00 Test Item Value Reference Range Interpretation Comments UA Blood (test code = Negative (07/22/14 1:46 UA Blood) PM) [facility] AND [id number] 18:46:00 Test Item Value Reference Range Interpretation Comments UA Ketones (test code = UA Negative mg/dL Ketones) [facility] AND [id number] 18:46:00 Test Item Value Reference Range Interpretation Comments UA Bili (test code = Negative *NA*(07/22/14 UA Bili) 1:46 PM) [facility] AND [id number] 18:46:00 Test Item Value Reference Range Interpretation Comments UA Bacteria (test code = UA Occasional /HPF Bacteria) [facility] AND [id number] 18:46:00 Test Item Value Reference Range Interpretation Comments UA RBC (test code = no gt See_Comment [Automa elizabeth message] The UA RBC) system which ge nerated this result transmit elizabeth reference range : <=2. The reference range was not used to interpr et this result as margaret l/abnormal. [facility] AND [id number] 18:46:00 Test Item Value Reference Range Interpretation Comments UA WBC (test code = 1 See_Comment [Automa elizabeth message] The UA WBC) system which ge nerated this result transmit elizabeth reference range : <=5. The reference range was not used to interpr et this result as margaret l/abnormal. [facility] AND [id number] 18:46:00 Test Item Value Reference Range Interpretation Comments UA Glucose (test code = UA Glucose) 30 mg/dL [facility] AND [id number] 18:46:00 Test Item Value Reference Range Interpretation Comments UA Protein (test code = UA Negative mg/dL Protein) [facility] AND [id number] 18:46:00 Test Item Value Reference Range Interpretation Comments UA pH (test code = UA pH) 6.5 5.0-8.0 [facility] AND [id number] 18:46:00 Test Item Value Reference Range Interpretation Comments UA Turbidity (test code = Clear (07/22/14 1:46 UA Turbidity) PM) [facility] AND [id number] 18:46:00 Test Item Value Reference Range Interpretation Comments UA Spec Grav (test code = UA Spec Grav) 1.010 [facility] AND [id number] 18:46:00 Test Item Value Reference Range Interpretation Comments UA Color (test code = Light Yellow UA Color) *NA*(07/22/14 1:46 PM) [facility]2015-06-09 18:46:00 Test Item Value Reference Range Interpretation Comments Magnesium Lvl (test code = Magnesium 1.8 1.8-2.4 Lvl) [facility]XwwjaibCEMMXFFSLIVL3712-74-20 18:46:00 Test Item Value Reference Range Interpretation Comments AGAP (test code = AGAP) 13.2 10.0-20.0 [facility] CenterFiyhtshQWVBJJKJOSIU9409-74-13 18:46:00 Test Item Value Reference Range Interpretation Comments B/C Ratio (test code = B/C Ratio) 18 6-25 [facility] CenterDdbojccCMFIOZEJIVLY0074-88-33 18:46:00 Test Item Value Reference Range Interpretation Comments A/G Ratio (test code = A/G Ratio) 1.1 0.7-1.6 [facility] CenterZbtgccwNTZZVDOXAPKC8157-02-99 18:46:00 Test Item Value Reference Range Interpretation Comments Globulin (test code = Globulin) 3.3 2.0-4.0 [facility] CenterOvwyemrRDJTDJMETDJT4378-83-51 18:46:00 Test Item Value Reference Range Interpretation Comments eGFR (test code = eGFR) 99 [facility] CenterIujgrxaBGGDVLNBMEBP8639-41-07 18:46:00 Test Item Value Reference Range Interpretation Comments Calcium Lvl (test code = Calcium Lvl) 9.0 8.5-10.5 [facility] CenterOnjxitdDWFCRGNSVXWF2046-68-83 18:46:00 Test Item Value Reference Range Interpretation Comments Chloride Lvl (test code = Chloride Lvl) 106 95-109 [facility] CenterPvoylgkCVCATLWEJKDB0660-66-24 18:46:00 Test Item Value Reference Range Interpretation Comments Creatinine Lvl (test code = Creatinine 0.9 0.5-1.4 Lvl) [facility] CenterOxgozujOTGHVLGAPOWV6682-46-17 18:46:00 Test Item Value Reference Range Interpretation Comments Potassium Lvl (test code = Potassium 4.2 3.5-5.1 Lvl) [facility] CenterCzgdtqkASCZVSCKACPN1755-51-73 18:46:00 Test Item Value Reference Range Interpretation Comments Sodium Lvl (test code = Sodium Lvl) 139 135-145 [facility] CenterPriaomlUUIIIPDIKRVM4186-00-80 18:46:00 Test Item Value Reference Range Interpretation Comments CO2 (test code = CO2) 24 24-32 [facility] CenterMqirfxuHAOPJCTMLZKD9926-92-96 18:46:00 Test Item Value Reference Range Interpretation Comments BUN (test code = BUN) 16 7-22 [facility] CenterAriodtfAAOEGWUBUYOT4768-02-70 18:46:00 Test Item Value Reference Range Interpretation Comments Glucose Lvl (test code = Glucose Lvl) 141 70-99 [facility] CenterSgslkvbFDIUHCQZRTQL6188-42-25 18:46:00 Test Item Value Reference Range Interpretation Comments Albumin Lvl (test code = Albumin Lvl) 3.6 3.5-5.0 [facility] CenterMrfuvoqOSUZLLYQGZCM5007-36-70 18:46:00 Test Item Value Reference Range Interpretation Comments Alk Phos (test code = Alk Phos) 65 39-136 [facility] CenterPejkdriTVNWVULULFLG7783-94-79 18:46:00 Test Item Value Reference Range Interpretation Comments Bili Total (test code = Bili Total) 0.3 0.2-1.3 [facility] CenterTgyzfeqQIUBJJFWDYDM4361-29-91 18:46:00 Test Item Value Reference Range Interpretation Comments ALT (test code = ALT) 100 See_Comment [Auto mated message] The system which ge nerated this result transmit elizabeth reference range : <=65. The reference range was not used to interpr et this result as margaret l/abnormal. [facility] CenterKpmpsjuHAAAIMCGIVRU8262-59-33 18:46:00 Test Item Value Reference Range Interpretation Comments AST (test code = AST) 53 See_Comment [Auto mated message] The system which ge nerated this result transmit elizabeth reference range : <=37. The reference range was not used to interpr et this result as margaret l/abnormal. [facility] CenterAwsybjiRNPPTNGCKZXI4865-55-98 18:46:00 Test Item Value Reference Range Interpretation Comments Total Protein (test code = Total 6.9 6.4-8.4 Protein) [facility] CampusGodyrmyFQZOTHSXIB6186-26-20 18:46:00 Test Item Value Reference Range Interpretation Comments Eosinophils (test code = 4.2 See_Comment [A utomated message] The Eosinophils) system which ge nerated this result tra nsmitted reference range : <=4.0. The reference r mitra was not used to int erpret this result as normal/abnormal . [facility] NorthwestSyrdyivXAXSBNWEAO8482-09-10 18:46:00 Test Item Value Reference Range Interpretation Comments Segs (test code = Segs) 56.4 45.0-75.0 [facility] NorthwestJebhlauWXQVYNBRBY2491-73-19 18:46:00 Test Item Value Reference Range Interpretation Comments Monocytes (test code = Monocytes) 10.3 2.0-12.0 [facility] NorthwestDygdicnPNTKZUQPYM9404-45-01 18:46:00 Test Item Value Reference Range Interpretation Comments Lymphocytes (test code = Lymphocytes) 28.0 20.0-40.0 [facility] NorthwestTjqllqpOURCQPGSVX8247-57-13 18:46:00 Test Item Value Reference Range Interpretation Comments Monocytes # (test code 0.5 See_Comment [Aut omated message] The = Monocytes #) system which generated this result tra nsmitted reference range : <=0.8. The reference r mitra was not used to int erpret this result as normal/abnormal . [facility] NorthwestNlzqtutDFVRUEFEJP4722-23-53 18:46:00 Test Item Value Reference Range Interpretation Comments Basophils (test code = 1.1 See_Comment [Aut omated message] The Basophils) system which ge nerated this result tra nsmitted reference range : <=1.0. The reference r mitra was not used to int erpret this result as normal/abnormal . [facility] NorthwestOvfsoehHSKNWDDLLI7477-65-37 18:46:00 Test Item Value Reference Range Interpretation Comments Lymphocytes # (test code = Lymphocytes 1.5 1.0-5.5 #) [facility] NorthwestXofoovpSOJSHVQPYU1542-90-32 18:46:00 Test Item Value Reference Range Interpretation Comments Segs-Bands # (test code = Segs-Bands #) 2.9 1.5-8.1 [facility] NorthwestKgwlruyYUEQBCINWT1879-31-47 18:46:00 Test Item Value Reference Range Interpretation Comments Eosinophils # (test code 0.2 See_Comment [A utomated message] The = Eosinophils #) system whic h generated this result tra nsmitted reference range : <=0.5. The reference r mitra was not used to int erpret this result as normal/abnormal . [facility] NorthwestHeeguotJPXMHVSRLL5112-88-56 18:46:00 Test Item Value Reference Range Interpretation Comments Basophils # (test code 0.1 See_Comment [Aut omated message] The = Basophils #) system which generated this result tra nsmitted reference range : <=0.2. The reference r mitra was not used to int erpret this result as normal/abnormal . [facility] NorthwestQcsossoEGUGSWJXVM7992-32-70 18:46:00 Test Item Value Reference Range Interpretation Comments PT (test code = PT) 11.2 s 12.0-14.7 [facility] NorthwestIlmlszbBJMMZDYNNI0144-42-05 18:46:00 Test Item Value Reference Range Interpretation Comments INR (test code = INR) 0.82 0.85-1.17 [facility] NorthwestGodikluFKITQPMHSB3285-68-94 18:46:00 Test Item Value Reference Range Interpretation Comments PTT (test code = PTT) 28.6 s 22.9-35.8 [facility] NorthwestTxxzlvqPLWDFVOYJJ9974-96-85 18:46:00 Test Item Value Reference Range Interpretation Comments MPV (test code = MPV) 8.1 7.4-10.4 [facility] NorthwestQalymapIXVBNUNAPY5912-18-20 18:46:00 Test Item Value Reference Range Interpretation Comments Platelet (test code = Platelet) 301 133-450 [facility] NorthwestGwityekQRFWGSTUWM9597-01-25 18:46:00 Test Item Value Reference Range Interpretation Comments RDW (test code = RDW) 14.5 11.5-14.5 [facility] NorthwestIapeghrAAXVRRWPPW1605-95-22 18:46:00 Test Item Value Reference Range Interpretation Comments RBC (test code = RBC) 4.84 4.70-6.10 [facility] NorthwestMnwfohaYHQZNJSSYN9900-01-66 18:46:00 Test Item Value Reference Range Interpretation Comments Hgb (test code = Hgb) 14.4 14.0-18.0 [facility] NorthwestCwlmabdTAYTJEHOKY1609-63-14 18:46:00 Test Item Value Reference Range Interpretation Comments WBC (test code = WBC) 5.2 3.7-10.4 [facility] NorthwestEzocpdeJMECNBMKTN4380-27-32 18:46:00 Test Item Value Reference Range Interpretation Comments MCH (test code = MCH) 29.8 pg 27.0-31.0 [facility] NorthwestDgopsweRDEMFRKMFZ6208-94-35 18:46:00 Test Item Value Reference Range Interpretation Comments MCV (test code = MCV) 92.0 80.0-94.0 [facility] NorthwestAetsogxPKRNFYHGIE3026-16-05 18:46:00 Test Item Value Reference Range Interpretation Comments Hct (test code = Hct) 44.5 42.0-54.0 [facility] VpujatlPVAQSSREPX5963-10-19 18:46:00 Test Item Value Reference Range Interpretation Comments MCHC (test code = MCHC) 32.4 32.0-36.0 [facility] IsxsixlGXMLQHBBEP3817-79-22 18:46:00 Test Item Value Reference Range Interpretation Comments [place]-Hep C Ab (test Negative *NA*(07/22/14 code = [place]-Hep C 1:46 PM) Ab) [facility] [id number] 18:46:00 Test Item Value Reference Range Interpretation Comments UA Urobilinogen (test code = UA <=1.0 mg/dL 0.1-1.0 Urobilinogen) [facility] [id number] 18:46:00 Test Item Value Reference Range Interpretation Comments UA Sq Epi (test code = UA Sq Epi) None [facility]en [facility]ann[facility] [id number] 18:46:00 Test Item Value Reference Range Interpretation Comments UA Leuk Est (test Negative (07/22/14 1:46 code = UA Leuk Est) PM) [facility] [id number] 18:46:00 Test Item Value Reference Range Interpretation Comments UA Nitrite (test code Negative (07/22/14 1:46 = UA Nitrite) PM) [facility] [id number] 18:46:00 Test Item Value Reference Range Interpretation Comments UA Blood (test code = Negative (07/22/14 1:46 UA Blood) PM) [facility] [id number] 18:46:00 Test Item Value Reference Range Interpretation Comments UA Ketones (test code = UA Negative mg/dL Ketones) [facility] [id number] 18:46:00 Test Item Value Reference Range Interpretation Comments UA Bili (test code = Negative *NA*(07/22/14 UA Bili) 1:46 PM) [facility] [id number] 18:46:00 Test Item Value Reference Range Interpretation Comments UA Bacteria (test code = UA Occasional /HPF Bacteria) [facility] [id number] 18:46:00 Test Item Value Reference Range Interpretation Comments UA RBC (test code = no gt See_Comment [Automa elizabeth message] The UA RBC) system which ge nerated this result transmit elizabeth reference range : <=2. The reference range was not used to interpr et this result as margaret l/abnormal. [facility] AND [id number] 18:46:00 Test Item Value Reference Range Interpretation Comments UA WBC (test code = 1 See_Comment [Automa elizabeth message] The UA WBC) system which ge nerated this result transmit elizabeth reference range : <=5. The reference range was not used to interpr et this result as margaret l/abnormal. [facility] AND [id number] 18:46:00 Test Item Value Reference Range Interpretation Comments UA Glucose (test code = UA Glucose) 30 mg/dL [facility] AND [id number] 18:46:00 Test Item Value Reference Range Interpretation Comments UA Protein (test code = UA Negative mg/dL Protein) [facility] AND [id number] 18:46:00 Test Item Value Reference Range Interpretation Comments UA pH (test code = UA pH) 6.5 5.0-8.0 [facility] AND [id number] 18:46:00 Test Item Value Reference Range Interpretation Comments UA Turbidity (test code = Clear (07/22/14 1:46 UA Turbidity) PM) [facility] AND [id number] 18:46:00 Test Item Value Reference Range Interpretation Comments UA Spec Grav (test code = UA Spec Grav) 1.010 [facility] AND [id number] 18:46:00 Test Item Value Reference Range Interpretation Comments UA Color (test code = Light Yellow UA Color) *NA*(07/22/14 1:46 PM) [facility]CHE[facility] [id number] 18:46:00 Test Item Value Reference Range Interpretation Comments Magnesium Lvl (test code = Magnesium 1.8 1.8-2.4 Lvl) [facility]UqdninlBRGHWOIPIOQW0212-89-53 18:46:00 Test Item Value Reference Range Interpretation Comments AGAP (test code = AGAP) 13.2 10.0-20.0 [facility] CenterHxbbdatHFCUHFNYXYPX9171-45-20 18:46:00 Test Item Value Reference Range Interpretation Comments B/C Ratio (test code = B/C Ratio) 18 6-25 [facility] CenterIjgcacnAGDFZJQOIOGS7637-09-12 18:46:00 Test Item Value Reference Range Interpretation Comments A/G Ratio (test code = A/G Ratio) 1.1 0.7-1.6 [facility] CenterBeozgyjMTQMFKNCHIDF3496-05-55 18:46:00 Test Item Value Reference Range Interpretation Comments Globulin (test code = Globulin) 3.3 2.0-4.0 [facility] CenterTgmunblFACSGTNGJVEO4851-42-62 18:46:00 Test Item Value Reference Range Interpretation Comments eGFR (test code = eGFR) 99 [facility] CenterVomnjrtWMFEYMZAMWFO9561-65-70 18:46:00 Test Item Value Reference Range Interpretation Comments Calcium Lvl (test code = Calcium Lvl) 9.0 8.5-10.5 [facility] CenterVrdtaffBQWJEITITYBE9637-75-78 18:46:00 Test Item Value Reference Range Interpretation Comments Chloride Lvl (test code = Chloride Lvl) 106 95-109 [facility] CenterIdxhkfkLWULIEGFSBSO0667-35-51 18:46:00 Test Item Value Reference Range Interpretation Comments Creatinine Lvl (test code = Creatinine 0.9 0.5-1.4 Lvl) [facility] CenterXvvgeghBHHEWCRRPFUV8798-28-73 18:46:00 Test Item Value Reference Range Interpretation Comments Potassium Lvl (test code = Potassium 4.2 3.5-5.1 Lvl) [facility] CenterJyvelkkHBTCYWGGZHRI2084-88-20 18:46:00 Test Item Value Reference Range Interpretation Comments Sodium Lvl (test code = Sodium Lvl) 139 135-145 [facility] CenterSzkcxebLNDBNVWSYVAJ1778-75-82 18:46:00 Test Item Value Reference Range Interpretation Comments CO2 (test code = CO2) 24 24-32 [facility] CenterWevtvnrICARRKXUNQPI1138-55-25 18:46:00 Test Item Value Reference Range Interpretation Comments BUN (test code = BUN) 16 7-22 [facility] CenterWfmyhsxACUGEKSBJSVG2330-18-24 18:46:00 Test Item Value Reference Range Interpretation Comments Glucose Lvl (test code = Glucose Lvl) 141 70-99 [facility] CenterZcsjcgjVSHWMJCYRQPX4797-04-99 18:46:00 Test Item Value Reference Range Interpretation Comments Albumin Lvl (test code = Albumin Lvl) 3.6 3.5-5.0 [facility] CenterZxikdjcFFYTFDOQYYOE8561-88-77 18:46:00 Test Item Value Reference Range Interpretation Comments Alk Phos (test code = Alk Phos) 65 39-136 [facility] CenterRwbuityCHFXRKPOEIWZ6471-49-99 18:46:00 Test Item Value Reference Range Interpretation Comments Bili Total (test code = Bili Total) 0.3 0.2-1.3 [facility] CenterZczkqqdMFVDRJDQMQMY9572-35-89 18:46:00 Test Item Value Reference Range Interpretation Comments ALT (test code = ALT) 100 See_Comment [Auto mated message] The system which ge nerated this result transmit elizabeth reference range : <=65. The reference range was not used to interpr et this result as margaret l/abnormal. [facility] CenterHueztwpZKOLNYFFYATJ8455-75-11 18:46:00 Test Item Value Reference Range Interpretation Comments AST (test code = AST) 53 See_Comment [Auto mated message] The system which ge nerated this result transmit elizabeth reference range : <=37. The reference range was not used to interpr et this result as margaret l/abnormal. [facility] CenterTzxzzbbPOBDGGRUMSXP5891-74-48 18:46:00 Test Item Value Reference Range Interpretation Comments Total Protein (test code = Total 6.9 6.4-8.4 Protein) [facility] NorthwestGodzjuoXKYCRQEVXN3402-05-75 18:46:00 Test Item Value Reference Range Interpretation Comments Eosinophils (test code = 4.2 See_Comment [A utomated message] The Eosinophils) system which ge nerated this result tra nsmitted reference range : <=4.0. The reference r mitra was not used to int erpret this result as normal/abnormal . [facility] NorthwestUqiazhyBMIEWCXHHS9940-27-93 18:46:00 Test Item Value Reference Range Interpretation Comments Segs (test code = Segs) 56.4 45.0-75.0 [facility] NorthwestSzueyjqRLJWVYJDFW3282-97-57 18:46:00 Test Item Value Reference Range Interpretation Comments Monocytes (test code = Monocytes) 10.3 2.0-12.0 [facility] NorthwestQoznopxOVZZJNLSOM9159-65-60 18:46:00 Test Item Value Reference Range Interpretation Comments Lymphocytes (test code = Lymphocytes) 28.0 20.0-40.0 [facility] NorthwestMazqxerIRXXCATSDK7591-35-75 18:46:00 Test Item Value Reference Range Interpretation Comments Monocytes # (test code 0.5 See_Comment [Aut omated message] The = Monocytes #) system which generated this result tra nsmitted reference range : <=0.8. The reference r mitra was not used to int erpret this result as normal/abnormal . [facility] NorthwestRkzjufqWVZVTEHCLC3903-03-85 18:46:00 Test Item Value Reference Range Interpretation Comments Basophils (test code = 1.1 See_Comment [Aut omated message] The Basophils) system which ge nerated this result tra nsmitted reference range : <=1.0. The reference r mitra was not used to int erpret this result as normal/abnormal . [facility] NorthwestPcewpysTYDXAMKXOK8283-75-60 18:46:00 Test Item Value Reference Range Interpretation Comments Lymphocytes # (test code = Lymphocytes 1.5 1.0-5.5 #) [facility] NorthwestNzusticDACHMWVHZP2340-12-86 18:46:00 Test Item Value Reference Range Interpretation Comments Segs-Bands # (test code = Segs-Bands #) 2.9 1.5-8.1 [facility] NorthwestOtgiguoPDQHDMOJTR5822-01-48 18:46:00 Test Item Value Reference Range Interpretation Comments Eosinophils # (test code 0.2 See_Comment [A utomated message] The = Eosinophils #) system whic h generated this result tra nsmitted reference range : <=0.5. The reference r mitra was not used to int erpret this result as normal/abnormal . [facility] NorthwestHafgfixTWEBTFBXEA9459-32-34 18:46:00 Test Item Value Reference Range Interpretation Comments Basophils # (test code 0.1 See_Comment [Aut omated message] The = Basophils #) system which generated this result tra nsmitted reference range : <=0.2. The reference r mitra was not used to int erpret this result as normal/abnormal . [facility] NorthwestEfmdisoGUPRFCODSV5257-67-41 18:46:00 Test Item Value Reference Range Interpretation Comments PT (test code = PT) 11.2 s 12.0-14.7 [facility] NorthwestDergeepPKIUYZRRCL0967-75-29 18:46:00 Test Item Value Reference Range Interpretation Comments INR (test code = INR) 0.82 0.85-1.17 [facility] NorthwestZzdfsnkNFFLDSGNEK0324-64-17 18:46:00 Test Item Value Reference Range Interpretation Comments PTT (test code = PTT) 28.6 s 22.9-35.8 [facility]OmbivrjGSQNZWSUHM2802-95-33 18:46:00 Test Item Value Reference Range Interpretation Comments MPV (test code = MPV) 8.1 7.4-10.4 [facility] HospitalVppipdrWQIEPKQKRW5029-42-67 18:46:00 Test Item Value Reference Range Interpretation Comments Platelet (test code = Platelet) 301 133-450 [facility] HospitalVlatdvkMGPPNCINJI9531-52-58 18:46:00 Test Item Value Reference Range Interpretation Comments RDW (test code = RDW) 14.5 11.5-14.5 [facility] HospitalZuuenddJXSHQJBGLW1883-95-10 18:46:00 Test Item Value Reference Range Interpretation Comments RBC (test code = RBC) 4.84 4.70-6.10 [facility] HospitalCwamyxaVRDVSWVJKT1709-18-24 18:46:00 Test Item Value Reference Range Interpretation Comments Hgb (test code = Hgb) 14.4 14.0-18.0 [facility]GybxivlIDUSUCQMWE7061-11-07 18:46:00 Test Item Value Reference Range Interpretation Comments WBC (test code = WBC) 5.2 3.7-10.4 [facility] HospitalLwufviqUWENBVRMEA0822-59-24 18:46:00 Test Item Value Reference Range Interpretation Comments MCH (test code = MCH) 29.8 pg 27.0-31.0 [facility] HospitalGjzkudfWLVGFNQNIG1163-48-23 18:46:00 Test Item Value Reference Range Interpretation Comments MCV (test code = MCV) 92.0 80.0-94.0 [facility] CampusKirdtnoUISOWLKVMD5049-66-15 18:46:00 Test Item Value Reference Range Interpretation Comments Hct (test code = Hct) 44.5 42.0-54.0 [facility] HospitalQnpqdfyHKTHDFDWVB0374-87-63 18:46:00 Test Item Value Reference Range Interpretation Comments MCHC (test code = MCHC) 32.4 32.0-36.0 [facility]SkrkrqcZIJOTDJOYX7326-69-91 18:46:00 Test Item Value Reference Range Interpretation Comments [place]-Hep C Ab (test Negative *NA*(07/22/14 code = [place]-Hep C 1:46 PM) Ab) [facility] AND [id number] 18:46:00 Test Item Value Reference Range Interpretation Comments UA Urobilinogen (test code = UA <=1.0 mg/dL 0.1-1.0 Urobilinogen) [facility] AND [id number] 18:46:00 Test Item Value Reference Range Interpretation Comments UA Sq Epi (test code = UA Sq Epi) None Seen [facility] AND [id number] 18:46:00 Test Item Value Reference Range Interpretation Comments UA Leuk Est (test Negative (07/22/14 1:46 code = UA Leuk Est) PM) [facility] AND [id number] 18:46:00 Test Item Value Reference Range Interpretation Comments UA Nitrite (test code Negative (07/22/14 1:46 = UA Nitrite) PM) [facility] AND [id number] 18:46:00 Test Item Value Reference Range Interpretation Comments UA Blood (test code = Negative (07/22/14 1:46 UA Blood) PM) [facility] AND [id number] 18:46:00 Test Item Value Reference Range Interpretation Comments UA Ketones (test code = UA Negative mg/dL Ketones) [facility] AND [id number] 18:46:00 Test Item Value Reference Range Interpretation Comments UA Bili (test code = Negative *NA*(07/22/14 UA Bili) 1:46 PM) [facility] AND [id number] 18:46:00 Test Item Value Reference Range Interpretation Comments UA Bacteria (test code = UA Occasional /HPF Bacteria) [facility] AND [id number] 18:46:00 Test Item Value Reference Range Interpretation Comments UA RBC (test code = no gt See_Comment [Automa elizabeth message] The UA RBC) system which ge nerated this result transmit elizabeth reference range : <=2. The reference range was not used to interpr et this result as margaret l/abnormal. [facility] AND [id number] 18:46:00 Test Item Value Reference Range Interpretation Comments UA WBC (test code = 1 See_Comment [Automa elizabeth message] The UA WBC) system which ge nerated this result transmit elizabeth reference range : <=5. The reference range was not used to interpr et this result as margaret l/abnormal. [facility] AND [id number] 18:46:00 Test Item Value Reference Range Interpretation Comments UA Glucose (test code = UA Glucose) 30 mg/dL [facility] AND [id number] 18:46:00 Test Item Value Reference Range Interpretation Comments UA Protein (test code = UA Negative mg/dL Protein) [facility] AND [id number] 18:46:00 Test Item Value Reference Range Interpretation Comments UA pH (test code = UA pH) 6.5 5.0-8.0 [facility] AND [id number] 18:46:00 Test Item Value Reference Range Interpretation Comments UA Turbidity (test code = Clear (07/22/14 1:46 UA Turbidity) PM) [facility] AND [id number] 18:46:00 Test Item Value Reference Range Interpretation Comments UA Spec Grav (test code = UA Spec Grav) 1.010 [facility] AND [id number] 18:46:00 Test Item Value Reference Range Interpretation Comments UA Color (test code = Light Yellow UA Color) *NA*(07/22/14 1:46 PM) [facility] [id number] 18:46:00 Test Item Value Reference Range Interpretation Comments Magnesium Lvl (test code = Magnesium 1.8 1.8-2.4 Lvl) [facility]JnzwfugYPXPIPGCDKJE1458-24-88 18:46:00 Test Item Value Reference Range Interpretation Comments AGAP (test code = AGAP) 13.2 10.0-20.0 [facility] CenterGcpiugbIQCTUZKQEURB5936-43-58 18:46:00 Test Item Value Reference Range Interpretation Comments B/C Ratio (test code = B/C Ratio) 18 6-25 [facility] CenterIofvsprEMOVKPRKCDUZ7934-51-41 18:46:00 Test Item Value Reference Range Interpretation Comments A/G Ratio (test code = A/G Ratio) 1.1 0.7-1.6 [facility] CenterCyijmojQTJEBLBYLEKA0240-76-17 18:46:00 Test Item Value Reference Range Interpretation Comments Globulin (test code = Globulin) 3.3 2.0-4.0 [facility] CenterAwicabxYLKXPRTEHTJY1625-68-85 18:46:00 Test Item Value Reference Range Interpretation Comments eGFR (test code = eGFR) 99 [facility] CenterOgmdxbeEDSQERDSOXDX5597-76-73 18:46:00 Test Item Value Reference Range Interpretation Comments Calcium Lvl (test code = Calcium Lvl) 9.0 8.5-10.5 [facility] CenterRktygqqKEXREBADIXMK4809-16-96 18:46:00 Test Item Value Reference Range Interpretation Comments Chloride Lvl (test code = Chloride Lvl) 106 95-109 [facility] CenterStzlgflRMPBUDMAJFKA0046-09-83 18:46:00 Test Item Value Reference Range Interpretation Comments Creatinine Lvl (test code = Creatinine 0.9 0.5-1.4 Lvl) [facility] CenterQwclslrCVCFPEYFDURZ0898-15-42 18:46:00 Test Item Value Reference Range Interpretation Comments Potassium Lvl (test code = Potassium 4.2 3.5-5.1 Lvl) [facility] CenterBhuhemsNQEEFLBOFTTV0587-39-21 18:46:00 Test Item Value Reference Range Interpretation Comments Sodium Lvl (test code = Sodium Lvl) 139 135-145 [facility] CenterJgdvrndSZDDYEMKMAIV6108-56-35 18:46:00 Test Item Value Reference Range Interpretation Comments CO2 (test code = CO2) 24 24-32 [facility] CenterCvrusggBPOYAZCEGFKP0707-83-07 18:46:00 Test Item Value Reference Range Interpretation Comments BUN (test code = BUN) 16 7-22 [facility] CenterAnohtvxAMPTWIBRKIJV5956-20-47 18:46:00 Test Item Value Reference Range Interpretation Comments Glucose Lvl (test code = Glucose Lvl) 141 70-99 [facility] CenterLfxuiauDDTZSIODCWYB2824-82-00 18:46:00 Test Item Value Reference Range Interpretation Comments Albumin Lvl (test code = Albumin Lvl) 3.6 3.5-5.0 [facility] CenterYphjoigOSNVGTZFQBSF8135-69-83 18:46:00 Test Item Value Reference Range Interpretation Comments Alk Phos (test code = Alk Phos) 65 39-136 [facility] CenterAxeuyyfRELKXOLTCDTY7791-72-76 18:46:00 Test Item Value Reference Range Interpretation Comments Bili Total (test code = Bili Total) 0.3 0.2-1.3 [facility] CenterHkmkosfIZYLOCPVTOOU6057-49-78 18:46:00 Test Item Value Reference Range Interpretation Comments ALT (test code = ALT) 100 See_Comment [Auto mated message] The system which ge nerated this result transmit elizabeth reference range : <=65. The reference range was not used to interpr et this result as margaret l/abnormal. [facility] CenterEadaoiuUCDZJUCJPVLN4310-05-65 18:46:00 Test Item Value Reference Range Interpretation Comments AST (test code = AST) 53 See_Comment [Auto mated message] The system which ge nerated this result transmit elizabeth reference range : <=37. The reference range was not used to interpr et this result as margaret l/abnormal. [facility] CenterWnaibbiBNQMGEYBMFZD8600-82-91 18:46:00 Test Item Value Reference Range Interpretation Comments Total Protein (test code = Total 6.9 6.4-8.4 Protein) [facility] NorthwestEcitwkeNUWMUTWTYW0589-96-21 18:46:00 Test Item Value Reference Range Interpretation Comments Eosinophils (test code = 4.2 See_Comment [A utomated message] The Eosinophils) system which ge nerated this result tra nsmitted reference range : <=4.0. The reference r mitra was not used to int erpret this result as normal/abnormal . [facility] NorthwestOzplipsFGYOXVCEWC5017-57-08 18:46:00 Test Item Value Reference Range Interpretation Comments Segs (test code = Segs) 56.4 45.0-75.0 [facility] NorthwestMjnjhhzSPYZVYVUSB6814-69-78 18:46:00 Test Item Value Reference Range Interpretation Comments Monocytes (test code = Monocytes) 10.3 2.0-12.0 [place] 146135-06-09 18:46:00 Test Item Value Reference Range Interpretation Comments Lymphocytes (test code = Lymphocytes) 28.0 20.0-40.0 [facility] NorthwestVgudlreYIWSRBKALT0418-44-46 18:46:00 Test Item Value Reference Range Interpretation Comments Monocytes # (test code 0.5 See_Comment [Aut omated message] The = Monocytes #) system which generated this result tra nsmitted reference range : <=0.8. The reference r mitra was not used to int erpret this result as normal/abnormal . [facility] NorthwestUzlakcqOUNQGREYEJ6045-49-27 18:46:00 Test Item Value Reference Range Interpretation Comments Basophils (test code = 1.1 See_Comment [Aut omated message] The Basophils) system which ge nerated this result tra nsmitted reference range : <=1.0. The reference r mitra was not used to int erpret this result as normal/abnormal . [facility] NorthwestRanvgsgCSBAURGDFL3556-87-34 18:46:00 Test Item Value Reference Range Interpretation Comments Lymphocytes # (test code = Lymphocytes 1.5 1.0-5.5 #) [facility] NorthwestVmxvrlySQKCLLRASD4017-06-90 18:46:00 Test Item Value Reference Range Interpretation Comments Segs-Bands # (test code = Segs-Bands #) 2.9 1.5-8.1 [facility] NorthwestZntpphcETZUACJJVH9176-53-35 18:46:00 Test Item Value Reference Range Interpretation Comments Eosinophils # (test code 0.2 See_Comment [A utomated message] The = Eosinophils #) system whic h generated this result tra nsmitted reference range : <=0.5. The reference r mitra was not used to int erpret this result as normal/abnormal . [facility] NorthwestHbovcnqPURRAXKDQJ5557-71-02 18:46:00 Test Item Value Reference Range Interpretation Comments Basophils # (test code 0.1 See_Comment [Aut omated message] The = Basophils #) system which generated this result tra nsmitted reference range : <=0.2. The reference r mitra was not used to int erpret this result as normal/abnormal . [facility] NorthwestCkgipawIHQUREOIMB2496-26-40 18:46:00 Test Item Value Reference Range Interpretation Comments PT (test code = PT) 11.2 s 12.0-14.7 [facility] NorthwestTjjdcahXJHCADOWEQ5876-83-34 18:46:00 Test Item Value Reference Range Interpretation Comments INR (test code = INR) 0.82 0.85-1.17 [facility] NorthwestYdmprkfYGUWJVPBIV6992-03-19 18:46:00 Test Item Value Reference Range Interpretation Comments PTT (test code = PTT) 28.6 s 22.9-35.8 [facility] NorthwestEuskjqbXVUCNHSOQY2851-13-39 18:46:00 Test Item Value Reference Range Interpretation Comments MPV (test code = MPV) 8.1 7.4-10.4 [facility] NorthwestLevcajiMCFCPQAWFA8547-08-17 18:46:00 Test Item Value Reference Range Interpretation Comments Platelet (test code = Platelet) 301 133-450 [facility] NorthwestVcgyxlbGIMOSYEGGS5038-96-12 18:46:00 Test Item Value Reference Range Interpretation Comments RDW (test code = RDW) 14.5 11.5-14.5 [facility] HospitalUmnrnhqTZRNNVFGUT3600-92-04 18:46:00 Test Item Value Reference Range Interpretation Comments RBC (test code = RBC) 4.84 4.70-6.10 [facility] HospitalPnraedcQLKIBNTKLF1664-57-09 18:46:00 Test Item Value Reference Range Interpretation Comments Hgb (test code = Hgb) 14.4 14.0-18.0 [facility] NorthwestAancnffEXIROUVANK3329-30-27 18:46:00 Test Item Value Reference Range Interpretation Comments WBC (test code = WBC) 5.2 3.7-10.4 [facility] HospitalFlfvdisEOQCDWJUJU1579-82-20 18:46:00 Test Item Value Reference Range Interpretation Comments MCH (test code = MCH) 29.8 pg 27.0-31.0 [facility] NorthwestPmkvycyOEIUJCAAWT2538-19-70 18:46:00 Test Item Value Reference Range Interpretation Comments MCV (test code = MCV) 92.0 80.0-94.0 [facility] NorthwestQohwrlhIKWSAUAFVV4725-72-51 18:46:00 Test Item Value Reference Range Interpretation Comments Hct (test code = Hct) 44.5 42.0-54.0 [facility] HospitalHmwzknnZKITOWQXTY6667-18-21 18:46:00 Test Item Value Reference Range Interpretation Comments MCHC (test code = MCHC) 32.4 32.0-36.0 [facility] CampusTexyxlcNEBWSMPTBF3670-40-08 18:46:00 Test Item Value Reference Range Interpretation Comments [place]-Hep C Ab (test Negative *NA*(07/22/14 code = [place]-Hep C 1:46 PM) Ab) [facility] AND [id number] 18:46:00 Test Item Value Reference Range Interpretation Comments UA Urobilinogen (test code = UA <=1.0 mg/dL 0.1-1.0 Urobilinogen) [facility] AND [id number] 18:46:00 Test Item Value Reference Range Interpretation Comments UA Sq Epi (test code = UA Sq Epi) None Seen [facility] AND [id number] 18:46:00 Test Item Value Reference Range Interpretation Comments UA Leuk Est (test Negative (07/22/14 1:46 code = UA Leuk Est) PM) [facility] AND [id number] 18:46:00 Test Item Value Reference Range Interpretation Comments UA Nitrite (test code Negative (07/22/14 1:46 = UA Nitrite) PM) [facility] AND [id number] 18:46:00 Test Item Value Reference Range Interpretation Comments UA Blood (test code = Negative (07/22/14 1:46 UA Blood) PM) [facility] AND [id number] 18:46:00 Test Item Value Reference Range Interpretation Comments UA Ketones (test code = UA Negative mg/dL Ketones) [facility] AND [id number] 18:46:00 Test Item Value Reference Range Interpretation Comments UA Bili (test code = Negative *NA*(07/22/14 UA Bili) 1:46 PM) [facility] AND [id number] 18:46:00 Test Item Value Reference Range Interpretation Comments UA Bacteria (test code = UA Occasional /HPF Bacteria) [facility] AND [id number] 18:46:00 Test Item Value Reference Range Interpretation Comments UA RBC (test code = no gt See_Comment [Automa elizabeth message] The UA RBC) system which ge nerated this result transmit elizabeth reference range : <=2. The reference range was not used to interpr et this result as margaret l/abnormal. [facility] AND [id number] 18:46:00 Test Item Value Reference Range Interpretation Comments UA WBC (test code = 1 See_Comment [Automa elizaebth message] The UA WBC) system which ge nerated this result transmit elizabeth reference range : <=5. The reference range was not used to interpr et this result as margaret l/abnormal. [facility] AND [id number] 18:46:00 Test Item Value Reference Range Interpretation Comments UA Glucose (test code = UA Glucose) 30 mg/dL [facility] AND [id number] 18:46:00 Test Item Value Reference Range Interpretation Comments UA Protein (test code = UA Negative mg/dL Protein) [facility] AND [id number] 18:46:00 Test Item Value Reference Range Interpretation Comments UA pH (test code = UA pH) 6.5 5.0-8.0 [facility] AND [id number] 18:46:00 Test Item Value Reference Range Interpretation Comments UA Turbidity (test code = Clear (07/22/14 1:46 UA Turbidity) PM) [facility] AND [id number] 18:46:00 Test Item Value Reference Range Interpretation Comments UA Spec Grav (test code = UA Spec Grav) 1.010 [facility] AND [id number] 18:46:00 Test Item Value Reference Range Interpretation Comments UA Color (test code = Light Yellow UA Color) *NA*(07/22/14 1:46 PM) [facility]icsannCHEM [id number] 18:46:00 Test Item Value Reference Range Interpretation Comments Magnesium Lvl (test code = Magnesium 1.8 1.8-2.4 Lvl) [facility] CenterRazpxvfNUIFPGJMINVQ5153-23-62 18:46:00 Test Item Value Reference Range Interpretation Comments AGAP (test code = AGAP) 13.2 10.0-20.0 [facility] CenterYcrwtxjQGAVRIAPMLXG8716-51-53 18:46:00 Test Item Value Reference Range Interpretation Comments B/C Ratio (test code = B/C Ratio) 18 6-25 [facility] CenterBrmcupuCNAVGOVBUBKT6106-05-55 18:46:00 Test Item Value Reference Range Interpretation Comments A/G Ratio (test code = A/G Ratio) 1.1 0.7-1.6 [facility] CenterNtufqhlKUSMSBNJWRQD3529-80-93 18:46:00 Test Item Value Reference Range Interpretation Comments Globulin (test code = Globulin) 3.3 2.0-4.0 [facility] CenterEnpdxtjLLRJQUJZDYPV1754-54-66 18:46:00 Test Item Value Reference Range Interpretation Comments eGFR (test code = eGFR) 99 [facility] CenterFnxisgmKSTHYJPDRFDE5720-68-90 18:46:00 Test Item Value Reference Range Interpretation Comments Calcium Lvl (test code = Calcium Lvl) 9.0 8.5-10.5 [facility] CenterUbqchyqESHJDEYMVMGB9363-40-75 18:46:00 Test Item Value Reference Range Interpretation Comments Chloride Lvl (test code = Chloride Lvl) 106 95-109 [facility] CenterKoqmryuVZQTNSZJOSBC7511-34-18 18:46:00 Test Item Value Reference Range Interpretation Comments Creatinine Lvl (test code = Creatinine 0.9 0.5-1.4 Lvl) [facility] CenterZjiaykcLQQBVABKKJYA6698-29-34 18:46:00 Test Item Value Reference Range Interpretation Comments Potassium Lvl (test code = Potassium 4.2 3.5-5.1 Lvl) [facility] CenterMtigwzzKJNXSZGGGGNW7530-64-29 18:46:00 Test Item Value Reference Range Interpretation Comments Sodium Lvl (test code = Sodium Lvl) 139 135-145 [facility] CenterSjyaaweRYQKNUEHMAJB9268-07-08 18:46:00 Test Item Value Reference Range Interpretation Comments CO2 (test code = CO2) 24 24-32 [facility] CenterOuakyleGBORLRSWWUFK1287-67-92 18:46:00 Test Item Value Reference Range Interpretation Comments BUN (test code = BUN) 16 7-22 [facility] CenterHfgdjyaUCVTIHHTNYAO8185-59-81 18:46:00 Test Item Value Reference Range Interpretation Comments Glucose Lvl (test code = Glucose Lvl) 141 70-99 [facility] CenterWindlroVWWYBGFYWUVT2917-79-85 18:46:00 Test Item Value Reference Range Interpretation Comments Albumin Lvl (test code = Albumin Lvl) 3.6 3.5-5.0 [facility] CenterNvtfpxrBFGIBIFNYXFB9047-94-90 18:46:00 Test Item Value Reference Range Interpretation Comments Alk Phos (test code = Alk Phos) 65 39-136 [facility] CenterYjhltjpJSGXQAQIMQHN7978-39-45 18:46:00 Test Item Value Reference Range Interpretation Comments Bili Total (test code = Bili Total) 0.3 0.2-1.3 [facility] CenterCikyzipAWNVEFANPAEM7930-16-38 18:46:00 Test Item Value Reference Range Interpretation Comments ALT (test code = ALT) 100 See_Comment [Auto mated message] The system which ge nerated this result transmit elizabeth reference range : <=65. The reference range was not used to interpr et this result as margaret l/abnormal. [facility] CenterPviuszbVRGJOMMLWPGB6409-69-73 18:46:00 Test Item Value Reference Range Interpretation Comments AST (test code = AST) 53 See_Comment [Auto mated message] The system which ge nerated this result transmit elizabeth reference range : <=37. The reference range was not used to interpr et this result as margaret l/abnormal. [facility] CenterBwubaaaHOVTBFKQLZNV1258-47-34 18:46:00 Test Item Value Reference Range Interpretation Comments Total Protein (test code = Total 6.9 6.4-8.4 Protein) [facility] NorthwestWityyfcJIMJVAWUDK6137-69-78 18:46:00 Test Item Value Reference Range Interpretation Comments Eosinophils (test code = 4.2 See_Comment [A utomated message] The Eosinophils) system which ge nerated this result tra nsmitted reference range : <=4.0. The reference r mitra was not used to int erpret this result as normal/abnormal . [facility] NorthwestCszfkyyAOKDNUJWFX1074-94-52 18:46:00 Test Item Value Reference Range Interpretation Comments Segs (test code = Segs) 56.4 45.0-75.0 [facility] NorthwestSlnasraMCBFLMGSHV5858-68-80 18:46:00 Test Item Value Reference Range Interpretation Comments Monocytes (test code = Monocytes) 10.3 2.0-12.0 [facility] NorthwestUxjxgteICQMJOTGVG2195-12-97 18:46:00 Test Item Value Reference Range Interpretation Comments Lymphocytes (test code = Lymphocytes) 28.0 20.0-40.0 [facility] NorthwestZozvrhoFKJKPTNYIT3350-72-52 18:46:00 Test Item Value Reference Range Interpretation Comments Monocytes # (test code 0.5 See_Comment [Aut omated message] The = Monocytes #) system which generated this result tra nsmitted reference range : <=0.8. The reference r mitra was not used to int erpret this result as normal/abnormal . [facility] NorthwestRezfiybHJTUMGDPLC1566-07-47 18:46:00 Test Item Value Reference Range Interpretation Comments Basophils (test code = 1.1 See_Comment [Aut omated message] The Basophils) system which ge nerated this result tra nsmitted reference range : <=1.0. The reference r mitra was not used to int erpret this result as normal/abnormal . [facility] NorthwestLzmwlklZZCPUTPYJL9970-91-14 18:46:00 Test Item Value Reference Range Interpretation Comments Lymphocytes # (test code = Lymphocytes 1.5 1.0-5.5 #) [facility] NorthwestNtyzehhUYMZBWDKPN0748-15-96 18:46:00 Test Item Value Reference Range Interpretation Comments Segs-Bands # (test code = Segs-Bands #) 2.9 1.5-8.1 [facility] NorthwestGijtsfiCRYHMOKJMD5597-54-43 18:46:00 Test Item Value Reference Range Interpretation Comments Eosinophils # (test code 0.2 See_Comment [A utomated message] The = Eosinophils #) system whic h generated this result tra nsmitted reference range : <=0.5. The reference r mitra was not used to int erpret this result as normal/abnormal . [facility] NorthwestXwprljtVTINVDSXCC0070-78-49 18:46:00 Test Item Value Reference Range Interpretation Comments Basophils # (test code 0.1 See_Comment [Aut omated message] The = Basophils #) system which generated this result tra nsmitted reference range : <=0.2. The reference r mitra was not used to int erpret this result as normal/abnormal . [facility] NorthwestFnvegppKFUTXWLHTE2751-78-93 18:46:00 Test Item Value Reference Range Interpretation Comments PT (test code = PT) 11.2 s 12.0-14.7 [facility] NorthwestMzelggoSJZFEPIERQ3159-60-89 18:46:00 Test Item Value Reference Range Interpretation Comments INR (test code = INR) 0.82 0.85-1.17 [facility] NorthwestVdbzexkZVGKCMGPHK9238-44-04 18:46:00 Test Item Value Reference Range Interpretation Comments PTT (test code = PTT) 28.6 s 22.9-35.8 [facility] NorthwestFlealezDRAUGUWSCJ7935-77-27 18:46:00 Test Item Value Reference Range Interpretation Comments MPV (test code = MPV) 8.1 7.4-10.4 [facility] NorthwestUlvoxehCIJAQXZEZD3062-61-61 18:46:00 Test Item Value Reference Range Interpretation Comments Platelet (test code = Platelet) 301 133-450 [facility] NorthwestZzpcxvaGISVRRCPRH4242-00-02 18:46:00 Test Item Value Reference Range Interpretation Comments RDW (test code = RDW) 14.5 11.5-14.5 [facility] NorthwestHmlrhtzOYYQSRFRIL9791-18-61 18:46:00 Test Item Value Reference Range Interpretation Comments RBC (test code = RBC) 4.84 4.70-6.10 [facility] NorthwestNnrnrbjAAYSCZHKHW5434-35-30 18:46:00 Test Item Value Reference Range Interpretation Comments Hgb (test code = Hgb) 14.4 14.0-18.0 [place] [id number] 18:46:00 Test Item Value Reference Range Interpretation Comments WBC (test code = WBC) 5.2 3.7-10.4 [facility] NorthwestGfirfnyJAJENEIPVV4902-51-94 18:46:00 Test Item Value Reference Range Interpretation Comments MCH (test code = MCH) 29.8 pg 27.0-31.0 [facility]FwzmtpoTDAVDPYLBA0755-05-25 18:46:00 Test Item Value Reference Range Interpretation Comments MCV (test code = MCV) 92.0 80.0-94.0 [facility] CampusGxufdriETEYYCAWDD2978-65-80 18:46:00 Test Item Value Reference Range Interpretation Comments Hct (test code = Hct) 44.5 42.0-54.0 [facility] CampusRobjgphCKRRGSVLDC2873-14-11 18:46:00 Test Item Value Reference Range Interpretation Comments MCHC (test code = MCHC) 32.4 32.0-36.0 [facility] CampusRvksjvgWLHJEDCWFJ3299-57-03 18:46:00 Test Item Value Reference Range Interpretation Comments [place]-Hep C Ab (test Negative *NA*(07/22/14 code = [place]-Hep C 1:46 PM) Ab) [facility] AND [id number] 18:46:00 Test Item Value Reference Range Interpretation Comments UA Urobilinogen (test code = UA <=1.0 mg/dL 0.1-1.0 Urobilinogen) [facility] AND [id number] 18:46:00 Test Item Value Reference Range Interpretation Comments UA Sq Epi (test code = UA Sq Epi) None Seen [facility] AND [id number] 18:46:00 Test Item Value Reference Range Interpretation Comments UA Leuk Est (test Negative (07/22/14 1:46 code = UA Leuk Est) PM) [facility] AND [id number] 18:46:00 Test Item Value Reference Range Interpretation Comments UA Nitrite (test code Negative (07/22/14 1:46 = UA Nitrite) PM) [facility] AND [id number] 18:46:00 Test Item Value Reference Range Interpretation Comments UA Blood (test code = Negative (07/22/14 1:46 UA Blood) PM) [facility] AND [id number] 18:46:00 Test Item Value Reference Range Interpretation Comments UA Ketones (test code = UA Negative mg/dL Ketones) [facility] AND [id number] 18:46:00 Test Item Value Reference Range Interpretation Comments UA Bili (test code = Negative *NA*(07/22/14 UA Bili) 1:46 PM) [facility] [id number] 18:46:00 Test Item Value Reference Range Interpretation Comments UA Bacteria (test code = UA Occasional /HPF Bacteria) [facility] [id number] 18:46:00 Test Item Value Reference Range Interpretation Comments UA RBC (test code = no gt See_Comment [Automa elizabeth message] The UA RBC) system which ge nerated this result transmit elizabeth reference range : <=2. The reference range was not used to interpr et this result as margaret l/abnormal. [facility] [id number] 18:46:00 Test Item Value Reference Range Interpretation Comments UA WBC (test code = 1 See_Comment [Automa elizabeth message] The UA WBC) system which ge nerated this result transmit elizabeth reference range : <=5. The reference range was not used to interpr et this result as margaret l/abnormal. [facility] [id number] 18:46:00 Test Item Value Reference Range Interpretation Comments UA Glucose (test code = UA Glucose) 30 mg/dL [facility] [id number] 18:46:00 Test Item Value Reference Range Interpretation Comments UA Protein (test code = UA Negative mg/dL Protein) [facility] [id number] 18:46:00 Test Item Value Reference Range Interpretation Comments UA pH (test code = UA pH) 6.5 5.0-8.0 [facility] [id number] 18:46:00 Test Item Value Reference Range Interpretation Comments UA Turbidity (test code = Clear (07/22/14 1:46 UA Turbidity) PM) [facility] [id number] 18:46:00 Test Item Value Reference Range Interpretation Comments UA Spec Grav (test code = UA Spec Grav) 1.010 [facility] [id number] 18:46:00 Test Item Value Reference Range Interpretation Comments UA Color (test code = Light Yellow UA Color) *NA*(07/22/14 1:46 PM) [facility]annCHE[facility] [id number] 18:46:00 Test Item Value Reference Range Interpretation Comments Magnesium Lvl (test code = Magnesium 1.8 1.8-2.4 Lvl) [facility]AbfxtkcENZAAEIMJKDL8809-86-76 18:46:00 Test Item Value Reference Range Interpretation Comments AGAP (test code = AGAP) 13.2 10.0-20.0 [facility] CenterZzhetpiPBCKBKPJJZFD8221-73-54 18:46:00 Test Item Value Reference Range Interpretation Comments B/C Ratio (test code = B/C Ratio) 18 6-25 [facility] CenterRjaaygeDEOKMQFTMDOT0942-57-29 18:46:00 Test Item Value Reference Range Interpretation Comments A/G Ratio (test code = A/G Ratio) 1.1 0.7-1.6 [facility] CenterVsjxtfbPLNJZICTNAEX2523-10-22 18:46:00 Test Item Value Reference Range Interpretation Comments Globulin (test code = Globulin) 3.3 2.0-4.0 [facility] CenterBhyvcxeLMNYWJOXBGMO7449-92-08 18:46:00 Test Item Value Reference Range Interpretation Comments eGFR (test code = eGFR) 99 [facility] CenterZpjygaiGPQZWVLKVOZF7235-77-96 18:46:00 Test Item Value Reference Range Interpretation Comments Calcium Lvl (test code = Calcium Lvl) 9.0 8.5-10.5 [facility] CenterWdejdydDUKPWVTHKQGV6452-27-48 18:46:00 Test Item Value Reference Range Interpretation Comments Chloride Lvl (test code = Chloride Lvl) 106 95-109 [facility] CenterBzifashQPLSGDBXYRCJ2886-55-14 18:46:00 Test Item Value Reference Range Interpretation Comments Creatinine Lvl (test code = Creatinine 0.9 0.5-1.4 Lvl) [facility] CenterDoqtqbxJVVMGRGHINHY5580-50-83 18:46:00 Test Item Value Reference Range Interpretation Comments Potassium Lvl (test code = Potassium 4.2 3.5-5.1 Lvl) [facility] CenterHbgwxejOUMONDCEGXVR5533-94-35 18:46:00 Test Item Value Reference Range Interpretation Comments Sodium Lvl (test code = Sodium Lvl) 139 135-145 [facility] CenterCyedtvcRRZEZXJDEEWN5342-10-09 18:46:00 Test Item Value Reference Range Interpretation Comments CO2 (test code = CO2) 24 24-32 [facility] CenterWtujuubQHMPAHPCIMKE8278-42-36 18:46:00 Test Item Value Reference Range Interpretation Comments BUN (test code = BUN) 16 7-22 [facility] CenterWokffykHPSREJNBJLKA5854-09-28 18:46:00 Test Item Value Reference Range Interpretation Comments Glucose Lvl (test code = Glucose Lvl) 141 70-99 [facility] CenterHjwfdtmBJWZUNCCUGJD3528-90-19 18:46:00 Test Item Value Reference Range Interpretation Comments Albumin Lvl (test code = Albumin Lvl) 3.6 3.5-5.0 [facility] CenterBebnuvsXLDXIDSIWNSA3861-50-11 18:46:00 Test Item Value Reference Range Interpretation Comments Alk Phos (test code = Alk Phos) 65 39-136 [facility] CenterOojtkjcJFKVJPRGFJOD5455-00-37 18:46:00 Test Item Value Reference Range Interpretation Comments Bili Total (test code = Bili Total) 0.3 0.2-1.3 [facility] CenterDzydyzaZTLHAFKYFBXP0145-77-60 18:46:00 Test Item Value Reference Range Interpretation Comments ALT (test code = ALT) 100 See_Comment [Auto mated message] The system which ge nerated this result transmit elizabeth reference range : <=65. The reference range was not used to interpr et this result as margaret l/abnormal. [facility] CenterQqrjodwZELZGLOALUZM4706-10-38 18:46:00 Test Item Value Reference Range Interpretation Comments AST (test code = AST) 53 See_Comment [Auto mated message] The system which ge nerated this result transmit elizabeth reference range : <=37. The reference range was not used to interpr et this result as margaret l/abnormal. [facility] CenterIduzcheLSDVKHNITPVV3971-37-03 18:46:00 Test Item Value Reference Range Interpretation Comments Total Protein (test code = Total 6.9 6.4-8.4 Protein) [facility] NorthwestEclklqvFGJERVQQKF2965-10-55 18:46:00 Test Item Value Reference Range Interpretation Comments Eosinophils (test code = 4.2 See_Comment [A utomated message] The Eosinophils) system which ge nerated this result tra nsmitted reference range : <=4.0. The reference r mitra was not used to int erpret this result as normal/abnormal . [facility] NorthwestVquebpmQVRRGKIJDI9462-18-76 18:46:00 Test Item Value Reference Range Interpretation Comments Segs (test code = Segs) 56.4 45.0-75.0 [facility] NorthwestXldoxubCKWDZVZVAY7298-47-77 18:46:00 Test Item Value Reference Range Interpretation Comments Monocytes (test code = Monocytes) 10.3 2.0-12.0 [facility] NorthwestCganartDSWNCCXCPM1270-90-83 18:46:00 Test Item Value Reference Range Interpretation Comments Lymphocytes (test code = Lymphocytes) 28.0 20.0-40.0 [facility] NorthwestZjkdzohDNDCRQIXXP6864-42-49 18:46:00 Test Item Value Reference Range Interpretation Comments Monocytes # (test code 0.5 See_Comment [Aut omated message] The = Monocytes #) system which generated this result tra nsmitted reference range : <=0.8. The reference r mitra was not used to int erpret this result as normal/abnormal . [facility] NorthwestLwazyqfLBIZVGGDUE8236-83-68 18:46:00 Test Item Value Reference Range Interpretation Comments Basophils (test code = 1.1 See_Comment [Aut omated message] The Basophils) system which ge nerated this result tra nsmitted reference range : <=1.0. The reference r mitra was not used to int erpret this result as normal/abnormal . [facility] NorthwestNhjdemiLNIJTDCMFI4530-14-09 18:46:00 Test Item Value Reference Range Interpretation Comments Lymphocytes # (test code = Lymphocytes 1.5 1.0-5.5 #) [facility] NorthwestPgpyolbEZIFXSJPTP4140-85-20 18:46:00 Test Item Value Reference Range Interpretation Comments Segs-Bands # (test code = Segs-Bands #) 2.9 1.5-8.1 [facility] NorthwestGpgkvmiQQTSBNHWZI2897-11-40 18:46:00 Test Item Value Reference Range Interpretation Comments Eosinophils # (test code 0.2 See_Comment [A utomated message] The = Eosinophils #) system whic h generated this result tra nsmitted reference range : <=0.5. The reference r mitra was not used to int erpret this result as normal/abnormal . [facility] NorthwestCtexigwISJYUYDLXX9534-57-09 18:46:00 Test Item Value Reference Range Interpretation Comments Basophils # (test code 0.1 See_Comment [Aut omated message] The = Basophils #) system which generated this result tra nsmitted reference range : <=0.2. The reference r mitra was not used to int erpret this result as normal/abnormal . [facility] NorthwestOyxclrnOORBXQVZBT1528-60-06 18:46:00 Test Item Value Reference Range Interpretation Comments PT (test code = PT) 11.2 s 12.0-14.7 [facility] NorthwestQlgabnnTLHOVOPFBP3697-90-88 18:46:00 Test Item Value Reference Range Interpretation Comments INR (test code = INR) 0.82 0.85-1.17 [facility] NorthwestEaauzeyVXNYYUNRSL3715-25-28 18:46:00 Test Item Value Reference Range Interpretation Comments PTT (test code = PTT) 28.6 s 22.9-35.8 [facility] NorthwestNfxzgdyDGZBUCQBYF1194-51-87 18:46:00 Test Item Value Reference Range Interpretation Comments MPV (test code = MPV) 8.1 7.4-10.4 [facility] NorthwestUtmzhgxRZANQDYDFC7709-29-02 18:46:00 Test Item Value Reference Range Interpretation Comments Platelet (test code = Platelet) 301 133-450 [facility] NorthwestEktfrgnBPBFKLQHOH5500-11-22 18:46:00 Test Item Value Reference Range Interpretation Comments RDW (test code = RDW) 14.5 11.5-14.5 [facility] NorthwestLukucwxWQAYIVOTWJ1242-21-02 18:46:00 Test Item Value Reference Range Interpretation Comments RBC (test code = RBC) 4.84 4.70-6.10 [facility] NorthwestXlcqgenTTJYGGHSXP4651-31-63 18:46:00 Test Item Value Reference Range Interpretation Comments Hgb (test code = Hgb) 14.4 14.0-18.0 [facility] NorthwestTfnnriaCVFSJJHXPY6745-22-93 18:46:00 Test Item Value Reference Range Interpretation Comments WBC (test code = WBC) 5.2 3.7-10.4 [facility] NorthwestRenrtbzYLRIITCYBE2434-35-47 18:46:00 Test Item Value Reference Range Interpretation Comments MCH (test code = MCH) 29.8 pg 27.0-31.0 [facility] NorthwestLzfwxacUOELTIMZZY0233-77-22 18:46:00 Test Item Value Reference Range Interpretation Comments MCV (test code = MCV) 92.0 80.0-94.0 [facility] NorthwestVerbeqjXCDCRTINKF6753-38-02 18:46:00 Test Item Value Reference Range Interpretation Comments Hct (test code = Hct) 44.5 42.0-54.0 [facility] NorthwestJkfthpvSQAKKORUIG3844-49-22 18:46:00 Test Item Value Reference Range Interpretation Comments MCHC (test code = MCHC) 32.4 32.0-36.0 [facility]icsKltmmbtOEDHXSJMVY2655-52-13 18:46:00 Test Item Value Reference Range Interpretation Comments [place]-Hep C Ab (test Negative *NA*(07/22/14 code = [place]-Hep C 1:46 PM) Ab) [facility] AND [id number] 18:46:00 Test Item Value Reference Range Interpretation Comments UA Urobilinogen (test code = UA <=1.0 mg/dL 0.1-1.0 Urobilinogen) [facility] AND [id number] 18:46:00 Test Item Value Reference Range Interpretation Comments UA Sq Epi (test code = UA Sq Epi) None Seen [facility] AND [id number] 18:46:00 Test Item Value Reference Range Interpretation Comments UA Leuk Est (test Negative (07/22/14 1:46 code = UA Leuk Est) PM) [facility] AND [id number] 18:46:00 Test Item Value Reference Range Interpretation Comments UA Nitrite (test code Negative (07/22/14 1:46 = UA Nitrite) PM) [facility] AND [id number] 18:46:00 Test Item Value Reference Range Interpretation Comments UA Blood (test code = Negative (07/22/14 1:46 UA Blood) PM) [facility] AND [id number] 18:46:00 Test Item Value Reference Range Interpretation Comments UA Ketones (test code = UA Negative mg/dL Ketones) [facility] AND [id number] 18:46:00 Test Item Value Reference Range Interpretation Comments UA Bili (test code = Negative *NA*(07/22/14 UA Bili) 1:46 PM) [facility] AND [id number] 18:46:00 Test Item Value Reference Range Interpretation Comments UA Bacteria (test code = UA Occasional /HPF Bacteria) [facility] AND [id number] 18:46:00 Test Item Value Reference Range Interpretation Comments UA RBC (test code = no gt See_Comment [Automa elizabeth message] The UA RBC) system which ge nerated this result transmit elizabeth reference range : <=2. The reference range was not used to interpr et this result as margaret l/abnormal. [facility] AND [id number] 18:46:00 Test Item Value Reference Range Interpretation Comments UA WBC (test code = 1 See_Comment [Automa elizabeth message] The UA WBC) system which ge nerated this result transmit elizabeth reference range : <=5. The reference range was not used to interpr et this result as margaret l/abnormal. [facility] AND [id number] 18:46:00 Test Item Value Reference Range Interpretation Comments UA Glucose (test code = UA Glucose) 30 mg/dL [facility] AND [id number] 18:46:00 Test Item Value Reference Range Interpretation Comments UA Protein (test code = UA Negative mg/dL Protein) [facility] AND [id number] 18:46:00 Test Item Value Reference Range Interpretation Comments UA pH (test code = UA pH) 6.5 5.0-8.0 [facility] AND [id number] 18:46:00 Test Item Value Reference Range Interpretation Comments UA Turbidity (test code = Clear (07/22/14 1:46 UA Turbidity) PM) [facility] AND [id number] 18:46:00 Test Item Value Reference Range Interpretation Comments UA Spec Grav (test code = UA Spec Grav) 1.010 [facility] AND [id number] 18:46:00 Test Item Value Reference Range Interpretation Comments UA Color (test code = Light Yellow UA Color) *NA*(07/22/14 1:46 PM) [facility] [id number] 18:46:00 Test Item Value Reference Range Interpretation Comments Magnesium Lvl (test code = Magnesium 1.8 1.8-2.4 Lvl) [facility]AkpzllyUTYFORYCEPEX4002-09-68 18:46:00 Test Item Value Reference Range Interpretation Comments AGAP (test code = AGAP) 13.2 10.0-20.0 [facility] CenterIxzannoXEXJXEIYVEFL7180-36-78 18:46:00 Test Item Value Reference Range Interpretation Comments B/C Ratio (test code = B/C Ratio) 18 6-25 [facility] CenterQlmxfppUZCGEXIKEXKQ6169-10-58 18:46:00 Test Item Value Reference Range Interpretation Comments A/G Ratio (test code = A/G Ratio) 1.1 0.7-1.6 [facility] CenterVlfaimyNFXWRCEQPZKK3525-53-72 18:46:00 Test Item Value Reference Range Interpretation Comments Globulin (test code = Globulin) 3.3 2.0-4.0 [facility] CenterAfnubpsXTJTVFWLKUAH1026-69-58 18:46:00 Test Item Value Reference Range Interpretation Comments eGFR (test code = eGFR) 99 [facility] CenterMgrxornCFRFIZKSWDRK4846-09-50 18:46:00 Test Item Value Reference Range Interpretation Comments Calcium Lvl (test code = Calcium Lvl) 9.0 8.5-10.5 [facility] CenterMkyptvzFQBCGJCRSSZX6777-37-57 18:46:00 Test Item Value Reference Range Interpretation Comments Chloride Lvl (test code = Chloride Lvl) 106 95-109 [facility] CenterTutzwplIMDLPYXUAMWH2214-15-55 18:46:00 Test Item Value Reference Range Interpretation Comments Creatinine Lvl (test code = Creatinine 0.9 0.5-1.4 Lvl) [facility] CenterZxvewxvZOITSVQSWBFI3908-99-76 18:46:00 Test Item Value Reference Range Interpretation Comments Potassium Lvl (test code = Potassium 4.2 3.5-5.1 Lvl) [facility] CenterBepebvyBUGWRTNRNTTW2281-63-41 18:46:00 Test Item Value Reference Range Interpretation Comments Sodium Lvl (test code = Sodium Lvl) 139 135-145 [facility] CenterMnwshtzNRPUIJVNCZGB5520-20-08 18:46:00 Test Item Value Reference Range Interpretation Comments CO2 (test code = CO2) 24 24-32 [facility] CenterWuykewiSTHHKRRWOFRS5495-66-81 18:46:00 Test Item Value Reference Range Interpretation Comments BUN (test code = BUN) 16 7-22 [facility] CenterHshuafgHZWFRKAPWOUF7700-44-16 18:46:00 Test Item Value Reference Range Interpretation Comments Glucose Lvl (test code = Glucose Lvl) 141 70-99 [facility] CenterChmuxjiMJACUPTDJMEC9762-02-59 18:46:00 Test Item Value Reference Range Interpretation Comments Albumin Lvl (test code = Albumin Lvl) 3.6 3.5-5.0 [facility] CenterXqlhtcdTFLYPCMDQAMP1000-49-89 18:46:00 Test Item Value Reference Range Interpretation Comments Alk Phos (test code = Alk Phos) 65 39-136 [facility] CenterGbgtsylGHSYUKVSXDVR3329-02-43 18:46:00 Test Item Value Reference Range Interpretation Comments Bili Total (test code = Bili Total) 0.3 0.2-1.3 [facility] CenterLundpaqUNZKFBGKEDDT8403-83-26 18:46:00 Test Item Value Reference Range Interpretation Comments ALT (test code = ALT) 100 See_Comment [Auto mated message] The system which ge nerated this result transmit elizabeth reference range : <=65. The reference range was not used to interpr et this result as margaret l/abnormal. [facility] CenterGrstpxlKGRARSZRJSXC5603-08-50 18:46:00 Test Item Value Reference Range Interpretation Comments AST (test code = AST) 53 See_Comment [Auto mated message] The system which ge nerated this result transmit elizabeth reference range : <=37. The reference range was not used to interpr et this result as margaret l/abnormal. [facility] CenterImwlmrqDYDYEHRHQXCD7912-40-57 18:46:00 Test Item Value Reference Range Interpretation Comments Total Protein (test code = Total 6.9 6.4-8.4 Protein) [facility] NorthwestPvcfuxkIKGMSSLGWA7329-10-50 18:46:00 Test Item Value Reference Range Interpretation Comments Eosinophils (test code = 4.2 See_Comment [A utomated message] The Eosinophils) system which ge nerated this result tra nsmitted reference range : <=4.0. The reference r mitra was not used to int erpret this result as normal/abnormal . [facility] NorthwestQubfqezUNBCVNJNZG2574-89-33 18:46:00 Test Item Value Reference Range Interpretation Comments Segs (test code = Segs) 56.4 45.0-75.0 [facility] NorthwestAtcbamkCXLTQDGXFI5377-77-63 18:46:00 Test Item Value Reference Range Interpretation Comments Monocytes (test code = Monocytes) 10.3 2.0-12.0 [facility] [facility]ggwqX[facility]TPDUR6582-19-46 18:46:00 Test Item Value Reference Range Interpretation Comments Lymphocytes (test code = Lymphocytes) 28.0 20.0-40.0 [facility] NorthwestXfnwkyuJXJSXENBRR8831-69-53 18:46:00 Test Item Value Reference Range Interpretation Comments Monocytes # (test code 0.5 See_Comment [Aut omated message] The = Monocytes #) system which generated this result tra nsmitted reference range : <=0.8. The reference r mitra was not used to int erpret this result as normal/abnormal . [facility] NorthwestZhnmuexRJBYAQZVJE2118-10-19 18:46:00 Test Item Value Reference Range Interpretation Comments Basophils (test code = 1.1 See_Comment [Aut omated message] The Basophils) system which ge nerated this result tra nsmitted reference range : <=1.0. The reference r mitra was not used to int erpret this result as normal/abnormal . [facility] NorthwestQhzhociNTMVAARJHP9471-41-28 18:46:00 Test Item Value Reference Range Interpretation Comments Lymphocytes # (test code = Lymphocytes 1.5 1.0-5.5 #) [facility] NorthwestBusrmzuYCYMXFJODR2106-13-37 18:46:00 Test Item Value Reference Range Interpretation Comments Segs-Bands # (test code = Segs-Bands #) 2.9 1.5-8.1 [facility] NorthwestWzbztmoYUJVPMUACO4196-00-94 18:46:00 Test Item Value Reference Range Interpretation Comments Eosinophils # (test code 0.2 See_Comment [A utomated message] The = Eosinophils #) system wh h generated this result tra nsmitted reference range : <=0.5. The reference r mitra was not used to int erpret this result as normal/abnormal . [facility] NorthwestBqzbertLQVTYLEPRW5644-22-16 18:46:00 Test Item Value Reference Range Interpretation Comments Basophils # (test code 0.1 See_Comment [Aut omated message] The = Basophils #) system which generated this result tra nsmitted reference range : <=0.2. The reference r mitra was not used to int erpret this result as normal/abnormal . [facility] NorthwestMrxmcenCFUIPEHPSY1516-86-30 18:46:00 Test Item Value Reference Range Interpretation Comments PT (test code = PT) 11.2 s 12.0-14.7 [facility] NorthwestWciglplDIJHAAPEHR8564-54-85 18:46:00 Test Item Value Reference Range Interpretation Comments INR (test code = INR) 0.82 0.85-1.17 [facility] NorthwestEvyuxiyCKAIRIVUQE4565-75-94 18:46:00 Test Item Value Reference Range Interpretation Comments PTT (test code = PTT) 28.6 s 22.9-35.8 [facility] NorthwestFlquhjlZDBQHMHHAE9416-54-52 18:46:00 Test Item Value Reference Range Interpretation Comments MPV (test code = MPV) 8.1 7.4-10.4 [facility]HbymlanRFCEJQBRBI1751-28-99 18:46:00 Test Item Value Reference Range Interpretation Comments Platelet (test code = Platelet) 301 133-450 [facility] NorthwestHevmvexGJHKJLSPIQ2325-27-47 18:46:00 Test Item Value Reference Range Interpretation Comments RDW (test code = RDW) 14.5 11.5-14.5 [facility] NorthwestJrbnqagXUTYMEIEVO4122-84-01 18:46:00 Test Item Value Reference Range Interpretation Comments RBC (test code = RBC) 4.84 4.70-6.10 [facility] HospitalZopsvhnLSUBCOCZLE7223-49-67 18:46:00 Test Item Value Reference Range Interpretation Comments Hgb (test code = Hgb) 14.4 14.0-18.0 [facility] NorthwestZizymjdMDXZDUVFUB4937-17-71 18:46:00 Test Item Value Reference Range Interpretation Comments WBC (test code = WBC) 5.2 3.7-10.4 [facility] NorthwestLkmpwoaRZRQQLCQXS5846-41-45 18:46:00 Test Item Value Reference Range Interpretation Comments MCH (test code = MCH) 29.8 pg 27.0-31.0 [facility] NorthwestUvucyjuNLMKQJYDPG1326-49-33 18:46:00 Test Item Value Reference Range Interpretation Comments MCV (test code = MCV) 92.0 80.0-94.0 [facility] HospitalCcbqwzqZWUMTKCKMX6327-53-05 18:46:00 Test Item Value Reference Range Interpretation Comments Hct (test code = Hct) 44.5 42.0-54.0 [facility] HospitalAwfykfmFXKQHROOPO3746-72-21 18:46:00 Test Item Value Reference Range Interpretation Comments MCHC (test code = MCHC) 32.4 32.0-36.0 [facility]HdqedwjTNKXYNQMLL2026-14-46 18:46:00 Test Item Value Reference Range Interpretation Comments [place]-Hep C Ab (test Negative *NA*(07/22/14 code = [place]-Hep C 1:46 PM) Ab) [facility] AND [id number] 18:46:00 Test Item Value Reference Range Interpretation Comments UA Urobilinogen (test code = UA <=1.0 mg/dL 0.1-1.0 Urobilinogen) [facility] AND [id number] 18:46:00 Test Item Value Reference Range Interpretation Comments UA Sq Epi (test code = UA Sq Epi) None Seen [facility] AND [id number] 18:46:00 Test Item Value Reference Range Interpretation Comments UA Leuk Est (test Negative (07/22/14 1:46 code = UA Leuk Est) PM) [facility] AND [id number] 18:46:00 Test Item Value Reference Range Interpretation Comments UA Nitrite (test code Negative (07/22/14 1:46 = UA Nitrite) PM) [facility] AND [id number] 18:46:00 Test Item Value Reference Range Interpretation Comments UA Blood (test code = Negative (07/22/14 1:46 UA Blood) PM) [facility] AND [id number] 18:46:00 Test Item Value Reference Range Interpretation Comments UA Ketones (test code = UA Negative mg/dL Ketones) [facility] AND [id number] 18:46:00 Test Item Value Reference Range Interpretation Comments UA Bili (test code = Negative *NA*(07/22/14 UA Bili) 1:46 PM) [facility] AND [id number] 18:46:00 Test Item Value Reference Range Interpretation Comments UA Bacteria (test code = UA Occasional /HPF Bacteria) [facility] AND [id number] 18:46:00 Test Item Value Reference Range Interpretation Comments UA RBC (test code = no gt See_Comment [Automa elizabeth message] The UA RBC) system which ge nerated this result transmit elizabeth reference range : <=2. The reference range was not used to interpr et this result as margaret l/abnormal. [facility] AND [id number] 18:46:00 Test Item Value Reference Range Interpretation Comments UA WBC (test code = 1 See_Comment [Automa elizabeth message] The UA WBC) system which ge nerated this result transmit elizabeth reference range : <=5. The reference range was not used to interpr et this result as margaret l/abnormal. [facility] AND [id number] 18:46:00 Test Item Value Reference Range Interpretation Comments UA Glucose (test code = UA Glucose) 30 mg/dL [facility] AND [id number] 18:46:00 Test Item Value Reference Range Interpretation Comments UA Protein (test code = UA Negative mg/dL Protein) [facility] AND [id number] 18:46:00 Test Item Value Reference Range Interpretation Comments UA pH (test code = UA pH) 6.5 5.0-8.0 [facility] [id number] 18:46:00 Test Item Value Reference Range Interpretation Comments UA Turbidity (test code = Clear (07/22/14 1:46 UA Turbidity) PM) [facility] AND [id number] 18:46:00 Test Item Value Reference Range Interpretation Comments UA Spec Grav (test code = UA Spec Grav) 1.010 [facility] AND [id number] 18:46:00 Test Item Value Reference Range Interpretation Comments UA Color (test code = Light Yellow UA Color) *NA*(07/22/14 1:46 PM) [facility] [id number] 18:46:00 Test Item Value Reference Range Interpretation Comments Magnesium Lvl (test code = Magnesium 1.8 1.8-2.4 Lvl) [facility]SazodhnAFFRPWNCTYWE8415-39-06 18:46:00 Test Item Value Reference Range Interpretation Comments AGAP (test code = AGAP) 13.2 10.0-20.0 [facility]EejlxkqCCXUZLLCHYYK8698-89-96 18:46:00 Test Item Value Reference Range Interpretation Comments B/C Ratio (test code = B/C Ratio) 18 6-25 [facility] CenterLvvlnppYWYXEFDGTCSM0726-24-87 18:46:00 Test Item Value Reference Range Interpretation Comments A/G Ratio (test code = A/G Ratio) 1.1 0.7-1.6 [facility] CenterSzkvsumXZDDAPMMCZFC7674-64-69 18:46:00 Test Item Value Reference Range Interpretation Comments Globulin (test code = Globulin) 3.3 2.0-4.0 [facility] CenterQalbfohSTTJIMZMRJGF4046-18-88 18:46:00 Test Item Value Reference Range Interpretation Comments eGFR (test code = eGFR) 99 [facility] CenterKbiewigEPSKHOIPGJZK0278-71-00 18:46:00 Test Item Value Reference Range Interpretation Comments Calcium Lvl (test code = Calcium Lvl) 9.0 8.5-10.5 [facility] CenterZrorblcBKAEYBSITXHF9727-25-14 18:46:00 Test Item Value Reference Range Interpretation Comments Chloride Lvl (test code = Chloride Lvl) 106 95-109 [facility] CenterNnpnnipWGDYVCXMDCQR0202-96-35 18:46:00 Test Item Value Reference Range Interpretation Comments Creatinine Lvl (test code = Creatinine 0.9 0.5-1.4 Lvl) [facility] CenterOsezxvnVNECGIVDQYZQ6741-54-97 18:46:00 Test Item Value Reference Range Interpretation Comments Potassium Lvl (test code = Potassium 4.2 3.5-5.1 Lvl) [facility] CenterKvtfurrRAZCHGVCSPGF8688-64-43 18:46:00 Test Item Value Reference Range Interpretation Comments Sodium Lvl (test code = Sodium Lvl) 139 135-145 [facility] CenterRfrebkeRMBSZTGXSFLP3837-63-37 18:46:00 Test Item Value Reference Range Interpretation Comments CO2 (test code = CO2) 24 24-32 [facility] CenterSnuqqrgVWDYSVIBNFMU0472-84-46 18:46:00 Test Item Value Reference Range Interpretation Comments BUN (test code = BUN) 16 7-22 [facility] CenterJwmtunySGDKAPUGLDOB9787-94-00 18:46:00 Test Item Value Reference Range Interpretation Comments Glucose Lvl (test code = Glucose Lvl) 141 70-99 [facility] CenterQwvdkhcAGSZSKMKJOAM5786-57-56 18:46:00 Test Item Value Reference Range Interpretation Comments Albumin Lvl (test code = Albumin Lvl) 3.6 3.5-5.0 [facility] CenterJzuhplkZEHYZAKVVUPL4228-77-77 18:46:00 Test Item Value Reference Range Interpretation Comments Alk Phos (test code = Alk Phos) 65 39-136 [facility] CenterNjuzoegVMVCBDSIJEAP1198-65-45 18:46:00 Test Item Value Reference Range Interpretation Comments Bili Total (test code = Bili Total) 0.3 0.2-1.3 [facility] CenterTtuxwdzPEQAHNABCQOZ4047-06-38 18:46:00 Test Item Value Reference Range Interpretation Comments ALT (test code = ALT) 100 See_Comment [Auto mated message] The system which ge nerated this result transmit elizabeth reference range : <=65. The reference range was not used to interpr et this result as margaret l/abnormal. [facility] CenterAgrkjkoGCGCNHRPTGDQ2791-38-22 18:46:00 Test Item Value Reference Range Interpretation Comments AST (test code = AST) 53 See_Comment [Auto mated message] The system which ge nerated this result transmit elizabeth reference range : <=37. The reference range was not used to interpr et this result as margaret l/abnormal. [facility] CenterFfgctvgSAVWOHGGUZBT8076-08-22 18:46:00 Test Item Value Reference Range Interpretation Comments Total Protein (test code = Total 6.9 6.4-8.4 Protein) [facility] NorthwestJansnpzGFECRTVLIQ0484-47-51 18:46:00 Test Item Value Reference Range Interpretation Comments Eosinophils (test code = 4.2 See_Comment [A utomated message] The Eosinophils) system which ge nerated this result tra nsmitted reference range : <=4.0. The reference r mitra was not used to int erpret this result as normal/abnormal . [facility] NorthwestCdyprtjOKYXAFDVPL2283-54-22 18:46:00 Test Item Value Reference Range Interpretation Comments Segs (test code = Segs) 56.4 45.0-75.0 [facility] NorthwestVbcbyxcMQBOHNDJLQ7525-44-65 18:46:00 Test Item Value Reference Range Interpretation Comments Monocytes (test code = Monocytes) 10.3 2.0-12.0 [facility] NorthwestOaljxzhGBHKDCPUZB3211-43-67 18:46:00 Test Item Value Reference Range Interpretation Comments Lymphocytes (test code = Lymphocytes) 28.0 20.0-40.0 [facility] NorthwestUcotfgqNIOCPPBNAB4612-96-56 18:46:00 Test Item Value Reference Range Interpretation Comments Monocytes # (test code 0.5 See_Comment [Aut omated message] The = Monocytes #) system which generated this result tra nsmitted reference range : <=0.8. The reference r mitra was not used to int erpret this result as normal/abnormal . [facility] NorthwestRhedotlJARLWUQJFU0427-14-85 18:46:00 Test Item Value Reference Range Interpretation Comments Basophils (test code = 1.1 See_Comment [Aut omated message] The Basophils) system which ge nerated this result tra nsmitted reference range : <=1.0. The reference r mitra was not used to int erpret this result as normal/abnormal . [facility] NorthwestMtwuuxiKBLTKQEUDZ0113-96-36 18:46:00 Test Item Value Reference Range Interpretation Comments Lymphocytes # (test code = Lymphocytes 1.5 1.0-5.5 #) [facility] NorthwestWqasnblZGIRASMUKR8989-71-32 18:46:00 Test Item Value Reference Range Interpretation Comments Segs-Bands # (test code = Segs-Bands #) 2.9 1.5-8.1 [facility] NorthwestHvcmmmoTPSWLCSKPS0787-60-18 18:46:00 Test Item Value Reference Range Interpretation Comments Eosinophils # (test code 0.2 See_Comment [A utomated message] The = Eosinophils #) system whic h generated this result tra nsmitted reference range : <=0.5. The reference r mitra was not used to int erpret this result as normal/abnormal . [facility] NorthwestAnfipymDBLSGMPMGF3403-64-62 18:46:00 Test Item Value Reference Range Interpretation Comments Basophils # (test code 0.1 See_Comment [Aut omated message] The = Basophils #) system which generated this result tra nsmitted reference range : <=0.2. The reference r mitra was not used to int erpret this result as normal/abnormal . [facility] NorthwestBqyszqmPOGHCJWPXE9618-44-10 18:46:00 Test Item Value Reference Range Interpretation Comments PT (test code = PT) 11.2 s 12.0-14.7 [facility] NorthwestFtnuluzWJQYFAVDFX8311-16-69 18:46:00 Test Item Value Reference Range Interpretation Comments INR (test code = INR) 0.82 0.85-1.17 [facility] NorthwestGohiqxrNSHMMZUQET9826-19-94 18:46:00 Test Item Value Reference Range Interpretation Comments PTT (test code = PTT) 28.6 s 22.9-35.8 [facility] NorthwestFohuhuvJCWACRWCII6280-78-55 18:46:00 Test Item Value Reference Range Interpretation Comments MPV (test code = MPV) 8.1 7.4-10.4 [facility] NorthwestYmsqvfdTTZRDYRASM0377-29-52 18:46:00 Test Item Value Reference Range Interpretation Comments Platelet (test code = Platelet) 301 133-450 [facility] NorthwestMzbnmmfVPWDMIOZYH6189-65-20 18:46:00 Test Item Value Reference Range Interpretation Comments RDW (test code = RDW) 14.5 11.5-14.5 [facility] NorthwestHyhmfduIMOIVKEPOZ8858-50-10 18:46:00 Test Item Value Reference Range Interpretation Comments RBC (test code = RBC) 4.84 4.70-6.10 [facility] NorthwestQfgfqurBBYXOSEWSK5510-57-89 18:46:00 Test Item Value Reference Range Interpretation Comments Hgb (test code = Hgb) 14.4 14.0-18.0 [facility] CampusAspzvwfXPZHEORZBZ9938-26-63 18:46:00 Test Item Value Reference Range Interpretation Comments WBC (test code = WBC) 5.2 3.7-10.4 [facility]XedpdlfOGHGQOARZE6661-40-97 18:46:00 Test Item Value Reference Range Interpretation Comments MCH (test code = MCH) 29.8 pg 27.0-31.0 [facility] NorthwestFrogkvkQJFOKONTLM8997-44-40 18:46:00 Test Item Value Reference Range Interpretation Comments MCV (test code = MCV) 92.0 80.0-94.0 [facility] NorthwestKyobiraOBQVTFYFUF1823-03-57 18:46:00 Test Item Value Reference Range Interpretation Comments Hct (test code = Hct) 44.5 42.0-54.0 [facility] NorthwestOzmyzpyRPDXYXIJZO6402-50-21 18:46:00 Test Item Value Reference Range Interpretation Comments MCHC (test code = MCHC) 32.4 32.0-36.0 [facility] CampusBdcobbnGXYWEIUIOW0071-19-16 18:46:00 Test Item Value Reference Range Interpretation Comments [place]-Hep C Ab (test Negative *NA*(07/22/14 code = [place]-Hep C 1:46 PM) Ab) [facility] AND [id number] 18:46:00 Test Item Value Reference Range Interpretation Comments UA Urobilinogen (test code = UA <=1.0 mg/dL 0.1-1.0 Urobilinogen) [facility] AND [id number] 18:46:00 Test Item Value Reference Range Interpretation Comments UA Sq Epi (test code = UA Sq Epi) None Seen [facility] AND [id number] 18:46:00 Test Item Value Reference Range Interpretation Comments UA Leuk Est (test Negative (07/22/14 1:46 code = UA Leuk Est) PM) [facility] AND [id number] 18:46:00 Test Item Value Reference Range Interpretation Comments UA Nitrite (test code Negative (07/22/14 1:46 = UA Nitrite) PM) [facility] AND [id number] 18:46:00 Test Item Value Reference Range Interpretation Comments UA Blood (test code = Negative (07/22/14 1:46 UA Blood) PM) [facility] AND [id number] 18:46:00 Test Item Value Reference Range Interpretation Comments UA Ketones (test code = UA Negative mg/dL Ketones) [facility] AND [id number] 18:46:00 Test Item Value Reference Range Interpretation Comments UA Bili (test code = Negative *NA*(07/22/14 UA Bili) 1:46 PM) [facility] AND [id number] 18:46:00 Test Item Value Reference Range Interpretation Comments UA Bacteria (test code = UA Occasional /HPF Bacteria) [facility] AND [id number] 18:46:00 Test Item Value Reference Range Interpretation Comments UA RBC (test code = no gt See_Comment [Automa elizabeth message] The UA RBC) system which ge nerated this result transmit elizabeth reference range : <=2. The reference range was not used to interpr et this result as margaret l/abnormal. [facility] AND [id number] 18:46:00 Test Item Value Reference Range Interpretation Comments UA WBC (test code = 1 See_Comment [Automa elizabeth message] The UA WBC) system which ge nerated this result transmit elizabeth reference range : <=5. The reference range was not used to interpr et this result as margaret l/abnormal. [facility] AND [id number] 18:46:00 Test Item Value Reference Range Interpretation Comments UA Glucose (test code = UA Glucose) 30 mg/dL [facility] AND [id number] 18:46:00 Test Item Value Reference Range Interpretation Comments UA Protein (test code = UA Negative mg/dL Protein) [facility] AND [id number] 18:46:00 Test Item Value Reference Range Interpretation Comments UA pH (test code = UA pH) 6.5 5.0-8.0 [facility] AND [id number] 18:46:00 Test Item Value Reference Range Interpretation Comments UA Turbidity (test code = Clear (07/22/14 1:46 UA Turbidity) PM) [facility] AND [id number] 18:46:00 Test Item Value Reference Range Interpretation Comments UA Spec Grav (test code = UA Spec Grav) 1.010 [facility] AND [id number] 18:46:00 Test Item Value Reference Range Interpretation Comments UA Color (test code = Light Yellow UA Color) *NA*(07/22/14 1:46 PM) [facility] [id number] 18:46:00 Test Item Value Reference Range Interpretation Comments Magnesium Lvl (test code = Magnesium 1.8 1.8-2.4 Lvl) [facility] CenterLnbrvahUVFLVSMFDEVM2168-27-15 18:46:00 Test Item Value Reference Range Interpretation Comments AGAP (test code = AGAP) 13.2 10.0-20.0 [facility] CenterShwzemjNEOTGVFCFBOI4506-82-05 18:46:00 Test Item Value Reference Range Interpretation Comments B/C Ratio (test code = B/C Ratio) 18 6-25 [facility] CenterGehsptuAEOIJFDMNLFL4003-08-31 18:46:00 Test Item Value Reference Range Interpretation Comments A/G Ratio (test code = A/G Ratio) 1.1 0.7-1.6 [facility] CenterBzwzpbtVLPSAQXMVOII1581-46-86 18:46:00 Test Item Value Reference Range Interpretation Comments Globulin (test code = Globulin) 3.3 2.0-4.0 [facility] CenterElqudwoHZYLXEJEJDGW4386-49-34 18:46:00 Test Item Value Reference Range Interpretation Comments eGFR (test code = eGFR) 99 [facility] CenterRlskgcmQKVHREMCMFTF3579-73-08 18:46:00 Test Item Value Reference Range Interpretation Comments Calcium Lvl (test code = Calcium Lvl) 9.0 8.5-10.5 [facility] CenterXonlzddOPCJPUOJQEWQ0484-41-46 18:46:00 Test Item Value Reference Range Interpretation Comments Chloride Lvl (test code = Chloride Lvl) 106 95-109 [facility] CenterSpbuzwvQVTFIWHHRFDU4885-02-13 18:46:00 Test Item Value Reference Range Interpretation Comments Creatinine Lvl (test code = Creatinine 0.9 0.5-1.4 Lvl) [facility] CenterYtiqsatORWIJKSGPYUN8547-82-99 18:46:00 Test Item Value Reference Range Interpretation Comments Potassium Lvl (test code = Potassium 4.2 3.5-5.1 Lvl) [facility] CenterOzjlgobPCNVTVFJFSEZ8809-99-72 18:46:00 Test Item Value Reference Range Interpretation Comments Sodium Lvl (test code = Sodium Lvl) 139 135-145 [facility] CenterDpugsrrSATXCDJWANZL3822-28-68 18:46:00 Test Item Value Reference Range Interpretation Comments CO2 (test code = CO2) 24 24-32 [facility] CenterNcacwidIMSGFBMUPJIO6910-98-60 18:46:00 Test Item Value Reference Range Interpretation Comments BUN (test code = BUN) 16 7-22 [facility] CenterGkvfwojMMQHXTLZLOTE4626-05-59 18:46:00 Test Item Value Reference Range Interpretation Comments Glucose Lvl (test code = Glucose Lvl) 141 70-99 [facility] CenterYxlsosoDXLLJJXWPTYQ7568-85-87 18:46:00 Test Item Value Reference Range Interpretation Comments Albumin Lvl (test code = Albumin Lvl) 3.6 3.5-5.0 [facility] CenterGbyagnuUYPAAIFBSRQA9076-25-59 18:46:00 Test Item Value Reference Range Interpretation Comments Alk Phos (test code = Alk Phos) 65 39-136 [facility] CenterDfkujfsAIRZCLQWTIRA7913-99-78 18:46:00 Test Item Value Reference Range Interpretation Comments Bili Total (test code = Bili Total) 0.3 0.2-1.3 [facility] CenterBzdnzkwGNAXMMPYFCHV7232-44-86 18:46:00 Test Item Value Reference Range Interpretation Comments ALT (test code = ALT) 100 See_Comment [Auto mated message] The system which ge nerated this result transmit elizabeth reference range : <=65. The reference range was not used to interpr et this result as margaret l/abnormal. [facility] CenterKjtkcarPSSGOIPHJSDS5638-87-36 18:46:00 Test Item Value Reference Range Interpretation Comments AST (test code = AST) 53 See_Comment [Auto mated message] The system which ge nerated this result transmit elizabeth reference range : <=37. The reference range was not used to interpr et this result as margaret l/abnormal. [facility] CenterJwcxcbuKMGHKNASZSFD7688-01-57 18:46:00 Test Item Value Reference Range Interpretation Comments Total Protein (test code = Total 6.9 6.4-8.4 Protein) [facility] CampusDqoyreqRKWDDLXEPT6510-71-36 18:46:00 Test Item Value Reference Range Interpretation Comments Eosinophils (test code = 4.2 See_Comment [A utomated message] The Eosinophils) system which ge nerated this result tra nsmitted reference range : <=4.0. The reference r mitra was not used to int erpret this result as normal/abnormal . [facility] NorthwestXozedrgMDVEQTVUXU1330-04-03 18:46:00 Test Item Value Reference Range Interpretation Comments Segs (test code = Segs) 56.4 45.0-75.0 [facility] NorthwestEemwemyDXVKDDBVBI2732-13-60 18:46:00 Test Item Value Reference Range Interpretation Comments Monocytes (test code = Monocytes) 10.3 2.0-12.0 [facility] NorthwestPrpiokmHOIBCSNONN7506-94-44 18:46:00 Test Item Value Reference Range Interpretation Comments Lymphocytes (test code = Lymphocytes) 28.0 20.0-40.0 [facility] NorthwestMcshawcVQYNJMRDEH0866-99-87 18:46:00 Test Item Value Reference Range Interpretation Comments Monocytes # (test code 0.5 See_Comment [Aut omated message] The = Monocytes #) system which generated this result tra nsmitted reference range : <=0.8. The reference r mitra was not used to int erpret this result as normal/abnormal . [facility] NorthwestZjayfsgABIWRDZSVH8902-56-89 18:46:00 Test Item Value Reference Range Interpretation Comments Basophils (test code = 1.1 See_Comment [Aut omated message] The Basophils) system which ge nerated this result tra nsmitted reference range : <=1.0. The reference r mitra was not used to int erpret this result as normal/abnormal . [facility] NorthwestYvjtdizPNDKIJPIRP7611-77-96 18:46:00 Test Item Value Reference Range Interpretation Comments Lymphocytes # (test code = Lymphocytes 1.5 1.0-5.5 #) [facility] NorthwestPbbwdazHTCKQNLDMQ6089-30-47 18:46:00 Test Item Value Reference Range Interpretation Comments Segs-Bands # (test code = Segs-Bands #) 2.9 1.5-8.1 [facility] NorthwestUqbphpbXXKZEIVIOO5403-72-75 18:46:00 Test Item Value Reference Range Interpretation Comments Eosinophils # (test code 0.2 See_Comment [A utomated message] The = Eosinophils #) system whic h generated this result tra nsmitted reference range : <=0.5. The reference r mitra was not used to int erpret this result as normal/abnormal . [facility] NorthwestKztupqyFFEIBMHSQR6735-66-60 18:46:00 Test Item Value Reference Range Interpretation Comments Basophils # (test code 0.1 See_Comment [Aut omated message] The = Basophils #) system which generated this result tra nsmitted reference range : <=0.2. The reference r mitra was not used to int erpret this result as normal/abnormal . [facility] NorthwestTntzvshCRHWZGMUMM4625-80-84 18:46:00 Test Item Value Reference Range Interpretation Comments PT (test code = PT) 11.2 s 12.0-14.7 [facility] NorthwestVibjzjqAIDQMETGEH6468-00-08 18:46:00 Test Item Value Reference Range Interpretation Comments INR (test code = INR) 0.82 0.85-1.17 [facility] NorthwestAgxxhutYGQEJHPPPE1043-16-78 18:46:00 Test Item Value Reference Range Interpretation Comments PTT (test code = PTT) 28.6 s 22.9-35.8 [facility] NorthwestQgihcreOUMBKJFRWT6339-40-39 18:46:00 Test Item Value Reference Range Interpretation Comments MPV (test code = MPV) 8.1 7.4-10.4 [facility] NorthwestAehczjoHWGJVZNUOK4915-30-86 18:46:00 Test Item Value Reference Range Interpretation Comments Platelet (test code = Platelet) 301 133-450 [facility] NorthwestBuxkootUOWYMNCTMP7518-11-91 18:46:00 Test Item Value Reference Range Interpretation Comments RDW (test code = RDW) 14.5 11.5-14.5 [facility] NorthwestUmlklihVNTENYWODW9620-59-60 18:46:00 Test Item Value Reference Range Interpretation Comments RBC (test code = RBC) 4.84 4.70-6.10 [facility] NorthwestWfxvofpICLQIHCNRT5192-07-95 18:46:00 Test Item Value Reference Range Interpretation Comments Hgb (test code = Hgb) 14.4 14.0-18.0 [facility] NorthwestEqsiowkPUZGZGZYYR9604-60-30 18:46:00 Test Item Value Reference Range Interpretation Comments WBC (test code = WBC) 5.2 3.7-10.4 [facility] NorthwestTmuhwcfDWEUEPUBTP2836-85-32 18:46:00 Test Item Value Reference Range Interpretation Comments MCH (test code = MCH) 29.8 pg 27.0-31.0 [facility] NorthwestTzirtdyBJZFHQZBON4731-71-74 18:46:00 Test Item Value Reference Range Interpretation Comments MCV (test code = MCV) 92.0 80.0-94.0 [place] [id number] 18:46:00 Test Item Value Reference Range Interpretation Comments Hct (test code = Hct) 44.5 42.0-54.0 [facility] GcmssesTKBBQZQWGL3126-39-21 18:46:00 Test Item Value Reference Range Interpretation Comments MCHC (test code = MCHC) 32.4 32.0-36.0 [facility]icsNxxvpvnTSCUVTUOJO5435-38-18 18:46:00 Test Item Value Reference Range Interpretation Comments [place]-Hep C Ab (test Negative *NA*(07/22/14 code = [place]-Hep C 1:46 PM) Ab) [facility] AND [id number] 18:46:00 Test Item Value Reference Range Interpretation Comments UA Urobilinogen (test code = UA <=1.0 mg/dL 0.1-1.0 Urobilinogen) [facility] AND [id number] 18:46:00 Test Item Value Reference Range Interpretation Comments UA Sq Epi (test code = UA Sq Epi) None Seen [facility] AND [id number] 18:46:00 Test Item Value Reference Range Interpretation Comments UA Leuk Est (test Negative (07/22/14 1:46 code = UA Leuk Est) PM) [facility] AND [id number] 18:46:00 Test Item Value Reference Range Interpretation Comments UA Nitrite (test code Negative (07/22/14 1:46 = UA Nitrite) PM) [facility] AND [id number] 18:46:00 Test Item Value Reference Range Interpretation Comments UA Blood (test code = Negative (07/22/14 1:46 UA Blood) PM) [facility] [id number] 18:46:00 Test Item Value Reference Range Interpretation Comments UA Ketones (test code = UA Negative mg/dL Ketones) [facility] [id number] 18:46:00 Test Item Value Reference Range Interpretation Comments UA Bili (test code = Negative *NA*(07/22/14 UA Bili) 1:46 PM) [facility] [id number] 18:46:00 Test Item Value Reference Range Interpretation Comments UA Bacteria (test code = UA Occasional /HPF Bacteria) [facility] [id number] 18:46:00 Test Item Value Reference Range Interpretation Comments UA RBC (test code = no gt See_Comment [Automa elizabeth message] The UA RBC) system which ge nerated this result transmit elizabeth reference range : <=2. The reference range was not used to interpr et this result as margaret l/abnormal. [facility] [id number] 18:46:00 Test Item Value Reference Range Interpretation Comments UA WBC (test code = 1 See_Comment [Automa elizabeth message] The UA WBC) system which ge nerated this result transmit elizabeth reference range : <=5. The reference range was not used to interpr et this result as margaret l/abnormal. [facility] [id number] 18:46:00 Test Item Value Reference Range Interpretation Comments UA Glucose (test code = UA Glucose) 30 mg/dL [facility] [id number] 18:46:00 Test Item Value Reference Range Interpretation Comments UA Protein (test code = UA Negative mg/dL Protein) [facility] [id number] 18:46:00 Test Item Value Reference Range Interpretation Comments UA pH (test code = UA pH) 6.5 5.0-8.0 [facility] [id number] 18:46:00 Test Item Value Reference Range Interpretation Comments UA Turbidity (test code = Clear (07/22/14 1:46 UA Turbidity) PM) [facility] [id number] 18:46:00 Test Item Value Reference Range Interpretation Comments UA Spec Grav (test code = UA Spec Grav) 1.010 [facility] [id number] 18:46:00 Test Item Value Reference Range Interpretation Comments UA Color (test code = Light Yellow UA Color) *NA*(07/22/14 1:46 PM) [facility]annCHEM [id number] 18:46:00 Test Item Value Reference Range Interpretation Comments Magnesium Lvl (test code = Magnesium 1.8 1.8-2.4 Lvl) [facility] BqoyfkaWYKQGRPNUOTL4376-78-37 18:46:00 Test Item Value Reference Range Interpretation Comments AGAP (test code = AGAP) 13.2 10.0-20.0 [facility] YeznquzGINKTDIFILTB9661-77-18 18:46:00 Test Item Value Reference Range Interpretation Comments B/C Ratio (test code = B/C Ratio) 18 6-25 [facility]UmtthyfVGLZWMDWUWTH3395-42-42 18:46:00 Test Item Value Reference Range Interpretation Comments A/G Ratio (test code = A/G Ratio) 1.1 0.7-1.6 [facility] CenterQczobalVGAQXPIRMKIO2054-98-56 18:46:00 Test Item Value Reference Range Interpretation Comments Globulin (test code = Globulin) 3.3 2.0-4.0 [facility] CenterUtiqlvhQXEBMAQFLWBQ5127-12-83 18:46:00 Test Item Value Reference Range Interpretation Comments eGFR (test code = eGFR) 99 [facility] CenterXoeqpnoLJJAFOYSOFQJ7073-46-07 18:46:00 Test Item Value Reference Range Interpretation Comments Calcium Lvl (test code = Calcium Lvl) 9.0 8.5-10.5 [facility] CenterJylsjzbTKVFKRVHJHNG0725-46-88 18:46:00 Test Item Value Reference Range Interpretation Comments Chloride Lvl (test code = Chloride Lvl) 106 95-109 [facility] CenterIfxksjyJBMAFOTFJDQH9012-38-25 18:46:00 Test Item Value Reference Range Interpretation Comments Creatinine Lvl (test code = Creatinine 0.9 0.5-1.4 Lvl) [facility] CenterKhbwfwxUAEWKFVZXQSJ9089-82-44 18:46:00 Test Item Value Reference Range Interpretation Comments Potassium Lvl (test code = Potassium 4.2 3.5-5.1 Lvl) [facility] CenterEdgbezvDRYFXKXRKXVE4573-48-40 18:46:00 Test Item Value Reference Range Interpretation Comments Sodium Lvl (test code = Sodium Lvl) 139 135-145 [facility] CenterWrakcehVDLPATHWHTVD1926-94-85 18:46:00 Test Item Value Reference Range Interpretation Comments CO2 (test code = CO2) 24 24-32 [facility] CenterPljhoeaNEVVFIPSHETB0735-68-37 18:46:00 Test Item Value Reference Range Interpretation Comments BUN (test code = BUN) 16 7-22 [facility] CenterBeswzoaYCVMQPOQCSMJ6768-64-32 18:46:00 Test Item Value Reference Range Interpretation Comments Glucose Lvl (test code = Glucose Lvl) 141 70-99 [facility] CenterUzvdeotKLETHOXYZPVQ0941-46-64 18:46:00 Test Item Value Reference Range Interpretation Comments Albumin Lvl (test code = Albumin Lvl) 3.6 3.5-5.0 [facility] CenterJemycrhGDOGBGSUWLPD3104-38-76 18:46:00 Test Item Value Reference Range Interpretation Comments Alk Phos (test code = Alk Phos) 65 39-136 [facility] CenterOoldgddZOLZZLWOQOLF8950-66-19 18:46:00 Test Item Value Reference Range Interpretation Comments Bili Total (test code = Bili Total) 0.3 0.2-1.3 [facility] CenterEmwhzzvPHOZVDSZBNXV0587-81-47 18:46:00 Test Item Value Reference Range Interpretation Comments ALT (test code = ALT) 100 See_Comment [Auto mated message] The system which ge nerated this result transmit elizabeth reference range : <=65. The reference range was not used to interpr et this result as margaret l/abnormal. [facility] CenterGvthpbgNGTGMVQTOJDT5484-35-69 18:46:00 Test Item Value Reference Range Interpretation Comments AST (test code = AST) 53 See_Comment [Auto mated message] The system which ge nerated this result transmit elizabeth reference range : <=37. The reference range was not used to interpr et this result as margaret l/abnormal. [facility] CenterRylepmuBUWONSOMOEMR9425-89-95 18:46:00 Test Item Value Reference Range Interpretation Comments Total Protein (test code = Total 6.9 6.4-8.4 Protein) [facility] NorthwestQvedkgiOFAVMSBZJO9100-39-05 18:46:00 Test Item Value Reference Range Interpretation Comments Eosinophils (test code = 4.2 See_Comment [A utomated message] The Eosinophils) system which ge nerated this result tra nsmitted reference range : <=4.0. The reference r mitra was not used to int erpret this result as normal/abnormal . [facility] NorthwestTbefchkFLIZKESIRF8523-99-51 18:46:00 Test Item Value Reference Range Interpretation Comments Segs (test code = Segs) 56.4 45.0-75.0 [facility] NorthwestNrthxbtSMPWQWCFJT2052-79-83 18:46:00 Test Item Value Reference Range Interpretation Comments Monocytes (test code = Monocytes) 10.3 2.0-12.0 [facility] NorthwestInxpfqnWWADYEXWXV3643-65-41 18:46:00 Test Item Value Reference Range Interpretation Comments Lymphocytes (test code = Lymphocytes) 28.0 20.0-40.0 [facility] NorthwestTuimylxUZYPDRRHZP1063-94-64 18:46:00 Test Item Value Reference Range Interpretation Comments Monocytes # (test code 0.5 See_Comment [Aut omated message] The = Monocytes #) system which generated this result tra nsmitted reference range : <=0.8. The reference r mitra was not used to int erpret this result as normal/abnormal . [facility] NorthwestYudgpnwVSPHJVOHVA2382-89-22 18:46:00 Test Item Value Reference Range Interpretation Comments Basophils (test code = 1.1 See_Comment [Aut omated message] The Basophils) system which ge nerated this result tra nsmitted reference range : <=1.0. The reference r mitra was not used to int erpret this result as normal/abnormal . [facility] NorthwestJhmgqlbCFEYOYVWMN2847-97-44 18:46:00 Test Item Value Reference Range Interpretation Comments Lymphocytes # (test code = Lymphocytes 1.5 1.0-5.5 #) [facility] NorthwestLessptlNOSYKRNPOI2852-65-50 18:46:00 Test Item Value Reference Range Interpretation Comments Segs-Bands # (test code = Segs-Bands #) 2.9 1.5-8.1 [facility] NorthwestUdxgfpdOPMWSVGEOK8875-86-49 18:46:00 Test Item Value Reference Range Interpretation Comments Eosinophils # (test code 0.2 See_Comment [A utomated message] The = Eosinophils #) system whic h generated this result tra nsmitted reference range : <=0.5. The reference r mitra was not used to int erpret this result as normal/abnormal . [facility] NorthwestLfgqotpBNWQMAQFWR2846-67-48 18:46:00 Test Item Value Reference Range Interpretation Comments Basophils # (test code 0.1 See_Comment [Aut omated message] The = Basophils #) system which generated this result tra nsmitted reference range : <=0.2. The reference r mitra was not used to int erpret this result as normal/abnormal . [facility] NorthwestUrmcqclOQCMBMFTGH1585-48-83 18:46:00 Test Item Value Reference Range Interpretation Comments PT (test code = PT) 11.2 s 12.0-14.7 [facility] NorthwestQrvhtylKPHSNVVBRI0552-02-97 18:46:00 Test Item Value Reference Range Interpretation Comments INR (test code = INR) 0.82 0.85-1.17 [facility] NorthwestFcwmkywDKDILGZTPV7008-95-76 18:46:00 Test Item Value Reference Range Interpretation Comments PTT (test code = PTT) 28.6 s 22.9-35.8 [facility]XqkxhvaOCMCUOOYKK5788-05-99 18:46:00 Test Item Value Reference Range Interpretation Comments MPV (test code = MPV) 8.1 7.4-10.4 [facility] HospitalScplzozGMXRVCPWCD2889-47-48 18:46:00 Test Item Value Reference Range Interpretation Comments Platelet (test code = Platelet) 301 133-450 [facility] HospitalBsoofghXSRRHXKDJW7172-89-12 18:46:00 Test Item Value Reference Range Interpretation Comments RDW (test code = RDW) 14.5 11.5-14.5 [facility] HospitalKiznsxvZGQBVURVZP0878-58-82 18:46:00 Test Item Value Reference Range Interpretation Comments RBC (test code = RBC) 4.84 4.70-6.10 [facility] HospitalFbeebalDIWURTYEEY5005-02-72 18:46:00 Test Item Value Reference Range Interpretation Comments Hgb (test code = Hgb) 14.4 14.0-18.0 [facility] HospitalMrjpaayWDKNPNIUET2507-51-05 18:46:00 Test Item Value Reference Range Interpretation Comments WBC (test code = WBC) 5.2 3.7-10.4 [facility] HospitalKamhjawMCMFDXJIQH1599-21-08 18:46:00 Test Item Value Reference Range Interpretation Comments MCH (test code = MCH) 29.8 pg 27.0-31.0 [facility] HospitalXbbeojkPNUIQJGTEZ7848-41-28 18:46:00 Test Item Value Reference Range Interpretation Comments MCV (test code = MCV) 92.0 80.0-94.0 [facility]YrtxubuNSUEOWCETZ3553-66-31 18:46:00 Test Item Value Reference Range Interpretation Comments Hct (test code = Hct) 44.5 42.0-54.0 [facility] HospitalZswehkcWSVXMLHAPM7931-60-92 18:46:00 Test Item Value Reference Range Interpretation Comments MCHC (test code = MCHC) 32.4 32.0-36.0 [facility]lakeEynlrpgFXHPWAXMWD3469-29-53 18:46:00 Test Item Value Reference Range Interpretation Comments [place]-Hep C Ab (test Negative *NA*(07/22/14 code = [place]-Hep C 1:46 PM) Ab) [facility] AND [id number] 18:46:00 Test Item Value Reference Range Interpretation Comments UA Urobilinogen (test code = UA <=1.0 mg/dL 0.1-1.0 Urobilinogen) [facility] AND [id number] 18:46:00 Test Item Value Reference Range Interpretation Comments UA Sq Epi (test code = UA Sq Epi) None Seen [facility] AND [id number] 18:46:00 Test Item Value Reference Range Interpretation Comments UA Leuk Est (test Negative (07/22/14 1:46 code = UA Leuk Est) PM) [facility] AND [id number] 18:46:00 Test Item Value Reference Range Interpretation Comments UA Nitrite (test code Negative (07/22/14 1:46 = UA Nitrite) PM) [facility] AND [id number] 18:46:00 Test Item Value Reference Range Interpretation Comments UA Blood (test code = Negative (07/22/14 1:46 UA Blood) PM) [facility] AND [id number] 18:46:00 Test Item Value Reference Range Interpretation Comments UA Ketones (test code = UA Negative mg/dL Ketones) [facility] AND [id number] 18:46:00 Test Item Value Reference Range Interpretation Comments UA Bili (test code = Negative *NA*(07/22/14 UA Bili) 1:46 PM) [facility] AND [id number] 18:46:00 Test Item Value Reference Range Interpretation Comments UA Bacteria (test code = UA Occasional /HPF Bacteria) [facility] AND [id number] 18:46:00 Test Item Value Reference Range Interpretation Comments UA RBC (test code = no gt See_Comment [Automa elizabeth message] The UA RBC) system which ge nerated this result transmit elizabeth reference range : <=2. The reference range was not used to interpr et this result as margaret l/abnormal. [facility] AND [id number] 18:46:00 Test Item Value Reference Range Interpretation Comments UA WBC (test code = 1 See_Comment [Automa elizabeth message] The UA WBC) system which ge nerated this result transmit elizabeth reference range : <=5. The reference range was not used to interpr et this result as margaret l/abnormal. [facility] AND [id number] 18:46:00 Test Item Value Reference Range Interpretation Comments UA Glucose (test code = UA Glucose) 30 mg/dL [facility] AND [id number] 18:46:00 Test Item Value Reference Range Interpretation Comments UA Protein (test code = UA Negative mg/dL Protein) [facility] AND [id number] 18:46:00 Test Item Value Reference Range Interpretation Comments UA pH (test code = UA pH) 6.5 5.0-8.0 [facility] AND [id number] 18:46:00 Test Item Value Reference Range Interpretation Comments UA Turbidity (test code = Clear (07/22/14 1:46 UA Turbidity) PM) [facility] AND [id number] 18:46:00 Test Item Value Reference Range Interpretation Comments UA Spec Grav (test code = UA Spec Grav) 1.010 [facility] AND [id number] 18:46:00 Test Item Value Reference Range Interpretation Comments UA Color (test code = Light Yellow UA Color) *NA*(07/22/14 1:46 PM) [facility]CHE[facility] [id number] 18:46:00 Test Item Value Reference Range Interpretation Comments Magnesium Lvl (test code = Magnesium 1.8 1.8-2.4 Lvl) [facility] CenterMubrubjARVGAPNPSXGG4032-88-58 18:46:00 Test Item Value Reference Range Interpretation Comments AGAP (test code = AGAP) 13.2 10.0-20.0 [facility] CenterVpjotgzCQLNXQJBVAWY8628-89-89 18:46:00 Test Item Value Reference Range Interpretation Comments B/C Ratio (test code = B/C Ratio) 18 6-25 [facility] CenterYufhoikBECAVGCDGUGJ2445-51-12 18:46:00 Test Item Value Reference Range Interpretation Comments A/G Ratio (test code = A/G Ratio) 1.1 0.7-1.6 [facility] CenterKidsdkuLBLIPLIPHWCW7567-59-59 18:46:00 Test Item Value Reference Range Interpretation Comments Globulin (test code = Globulin) 3.3 2.0-4.0 [facility] CenterWucsjeoURKWTWNYGNRF8633-47-69 18:46:00 Test Item Value Reference Range Interpretation Comments eGFR (test code = eGFR) 99 [facility] CenterSxtllctSBENXWGTIVGJ8375-04-78 18:46:00 Test Item Value Reference Range Interpretation Comments Calcium Lvl (test code = Calcium Lvl) 9.0 8.5-10.5 [facility] CenterTzblargGOJWGJQPUCCP3469-18-64 18:46:00 Test Item Value Reference Range Interpretation Comments Chloride Lvl (test code = Chloride Lvl) 106 95-109 [facility] CenterWhnyrwzDBTLENEROHDB4175-16-44 18:46:00 Test Item Value Reference Range Interpretation Comments Creatinine Lvl (test code = Creatinine 0.9 0.5-1.4 Lvl) [facility] CenterEyezhqsSYPLLPVDICAT9372-95-32 18:46:00 Test Item Value Reference Range Interpretation Comments Potassium Lvl (test code = Potassium 4.2 3.5-5.1 Lvl) [facility] CenterZmekmljPICBOFKMMYRM0255-88-07 18:46:00 Test Item Value Reference Range Interpretation Comments Sodium Lvl (test code = Sodium Lvl) 139 135-145 [facility] CenterRsmptfcLCXRSARWDYSK2594-52-04 18:46:00 Test Item Value Reference Range Interpretation Comments CO2 (test code = CO2) 24 24-32 [facility] CenterVcboxjvURENFKUUOTSF6162-16-04 18:46:00 Test Item Value Reference Range Interpretation Comments BUN (test code = BUN) 16 7-22 [facility] CenterHmcccecZSXLUAVMTPUE9685-38-60 18:46:00 Test Item Value Reference Range Interpretation Comments Glucose Lvl (test code = Glucose Lvl) 141 70-99 [facility] CenterRwzxjkaADSWPDOPTGOA0621-46-77 18:46:00 Test Item Value Reference Range Interpretation Comments Albumin Lvl (test code = Albumin Lvl) 3.6 3.5-5.0 [facility] CenterDfcgislOCDVZDKVUOWE1755-82-85 18:46:00 Test Item Value Reference Range Interpretation Comments Alk Phos (test code = Alk Phos) 65 39-136 [facility] CenterPfpsjxoFCBOIEANOEIJ0183-10-71 18:46:00 Test Item Value Reference Range Interpretation Comments Bili Total (test code = Bili Total) 0.3 0.2-1.3 [facility] CenterPraykqsPKUPLRFQBJOO5598-05-38 18:46:00 Test Item Value Reference Range Interpretation Comments ALT (test code = ALT) 100 See_Comment [Auto mated message] The system which ge nerated this result transmit elizabeth reference range : <=65. The reference range was not used to interpr et this result as margaret l/abnormal. [facility] CenterRdpuassCVIXNSPFTKCV3005-53-66 18:46:00 Test Item Value Reference Range Interpretation Comments AST (test code = AST) 53 See_Comment [Auto mated message] The system which ge nerated this result transmit elizabeth reference range : <=37. The reference range was not used to interpr et this result as margaret l/abnormal. [facility] CenterDqxpolcEXXHSIILZTGD8562-24-27 18:46:00 Test Item Value Reference Range Interpretation Comments Total Protein (test code = Total 6.9 6.4-8.4 Protein) [facility] NorthwestFhdpqvoWZRDDSZGOD2628-20-09 18:46:00 Test Item Value Reference Range Interpretation Comments Eosinophils (test code = 4.2 See_Comment [A utomated message] The Eosinophils) system which ge nerated this result tra nsmitted reference range : <=4.0. The reference r mitra was not used to int erpret this result as normal/abnormal . [facility] NorthwestKjywdeiTELFTJLSXJ1474-23-61 18:46:00 Test Item Value Reference Range Interpretation Comments Segs (test code = Segs) 56.4 45.0-75.0 [facility] NorthwestKijjlheSVWGATKDFY8972-92-27 18:46:00 Test Item Value Reference Range Interpretation Comments Monocytes (test code = Monocytes) 10.3 2.0-12.0 [facility] NorthwestLvdeczlESNQKWNMAT7319-64-71 18:46:00 Test Item Value Reference Range Interpretation Comments Lymphocytes (test code = Lymphocytes) 28.0 20.0-40.0 [facility] NorthwestKojnhmgUQTCEKHHAM7824-29-59 18:46:00 Test Item Value Reference Range Interpretation Comments Monocytes # (test code 0.5 See_Comment [Aut omated message] The = Monocytes #) system which generated this result tra nsmitted reference range : <=0.8. The reference r mitra was not used to int erpret this result as normal/abnormal . [facility] NorthwestNwteoxuOXHZOHCVMF5421-03-04 18:46:00 Test Item Value Reference Range Interpretation Comments Basophils (test code = 1.1 See_Comment [Aut omated message] The Basophils) system which ge nerated this result tra nsmitted reference range : <=1.0. The reference r mitra was not used to int erpret this result as normal/abnormal . [facility] NorthwestPqllbrtXTGZKVGTLS4747-99-31 18:46:00 Test Item Value Reference Range Interpretation Comments Lymphocytes # (test code = Lymphocytes 1.5 1.0-5.5 #) [facility] NorthwestOiqblffGWVITPALZV8076-17-19 18:46:00 Test Item Value Reference Range Interpretation Comments Segs-Bands # (test code = Segs-Bands #) 2.9 1.5-8.1 [facility] NorthwestSfammpzHKCDBAKXID3000-34-47 18:46:00 Test Item Value Reference Range Interpretation Comments Eosinophils # (test code 0.2 See_Comment [A utomated message] The = Eosinophils #) system whic h generated this result tra nsmitted reference range : <=0.5. The reference r mitra was not used to int erpret this result as normal/abnormal . [facility] NorthwestFdkiqswEVIDBSZQBU0184-07-77 18:46:00 Test Item Value Reference Range Interpretation Comments Basophils # (test code 0.1 See_Comment [Aut omated message] The = Basophils #) system which generated this result tra nsmitted reference range : <=0.2. The reference r mitra was not used to int erpret this result as normal/abnormal . [facility] NorthwestHbvuliwZEFIAYCNBY8266-60-57 18:46:00 Test Item Value Reference Range Interpretation Comments PT (test code = PT) 11.2 s 12.0-14.7 [facility] NorthwestXivpfkeREJEFCSKDN9669-49-86 18:46:00 Test Item Value Reference Range Interpretation Comments INR (test code = INR) 0.82 0.85-1.17 [facility] NorthwestNnxxwtiMITUVWDCOS3581-88-11 18:46:00 Test Item Value Reference Range Interpretation Comments PTT (test code = PTT) 28.6 s 22.9-35.8 [facility] NorthwestDyblctsQZSLKXJCOO2070-35-09 18:46:00 Test Item Value Reference Range Interpretation Comments MPV (test code = MPV) 8.1 7.4-10.4 [facility] NorthwestVijdudsORELWTFNLG3980-73-43 18:46:00 Test Item Value Reference Range Interpretation Comments Platelet (test code = Platelet) 301 133-450 [facility] NorthwestTnthwjmJNZMNWFYDH1326-10-25 18:46:00 Test Item Value Reference Range Interpretation Comments RDW (test code = RDW) 14.5 11.5-14.5 [facility]ZzwnuimONDAWBSNIO4681-61-56 18:46:00 Test Item Value Reference Range Interpretation Comments RBC (test code = RBC) 4.84 4.70-6.10 [facility]mpcmsgLCQGCOKHMK8022-83-07 18:46:00 Test Item Value Reference Range Interpretation Comments Hgb (test code = Hgb) 14.4 14.0-18.0 [facility] HospitalCraqubxVTPIESOOLT3308-32-44 18:46:00 Test Item Value Reference Range Interpretation Comments WBC (test code = WBC) 5.2 3.7-10.4 [facility] HospitalFlimowjXRFNDMNANI0201-74-92 18:46:00 Test Item Value Reference Range Interpretation Comments MCH (test code = MCH) 29.8 pg 27.0-31.0 [facility] NorthwestOkrzhnvIRIHLGRGNB3097-88-04 18:46:00 Test Item Value Reference Range Interpretation Comments MCV (test code = MCV) 92.0 80.0-94.0 [facility] HospitalHdxxlinTYTGGVMINN0795-26-41 18:46:00 Test Item Value Reference Range Interpretation Comments Hct (test code = Hct) 44.5 42.0-54.0 [facility] CampusYdymqqoFWHUZZDSVL9627-61-22 18:46:00 Test Item Value Reference Range Interpretation Comments MCHC (test code = MCHC) 32.4 32.0-36.0 [facility] CampusUunuriwOEBFAVNAFF2575-60-50 18:46:00 Test Item Value Reference Range Interpretation Comments [place]-Hep C Ab (test Negative *NA*(07/22/14 code = [place]-Hep C 1:46 PM) Ab) [facility] AND [id number] 18:46:00 Test Item Value Reference Range Interpretation Comments UA Urobilinogen (test code = UA <=1.0 mg/dL 0.1-1.0 Urobilinogen) [facility] [id number] 18:46:00 Test Item Value Reference Range Interpretation Comments UA Sq Epi (test code = UA Sq Epi) None [facility]en [facility] [id number] 18:46:00 Test Item Value Reference Range Interpretation Comments UA Leuk Est (test Negative (07/22/14 1:46 code = UA Leuk Est) PM) [facility] [id number] 18:46:00 Test Item Value Reference Range Interpretation Comments UA Nitrite (test code Negative (07/22/14 1:46 = UA Nitrite) PM) [facility] AND [id number] 18:46:00 Test Item Value Reference Range Interpretation Comments UA Blood (test code = Negative (07/22/14 1:46 UA Blood) PM) [facility] AND [id number] 18:46:00 Test Item Value Reference Range Interpretation Comments UA Ketones (test code = UA Negative mg/dL Ketones) [facility] AND [id number] 18:46:00 Test Item Value Reference Range Interpretation Comments UA Bili (test code = Negative *NA*(07/22/14 UA Bili) 1:46 PM) [facility] AND [id number] 18:46:00 Test Item Value Reference Range Interpretation Comments UA Bacteria (test code = UA Occasional /HPF Bacteria) [facility] AND [id number] 18:46:00 Test Item Value Reference Range Interpretation Comments UA RBC (test code = no gt See_Comment [Automa elizabeth message] The UA RBC) system which ge nerated this result transmit elizabeth reference range : <=2. The reference range was not used to interpr et this result as margaret l/abnormal. [facility] AND [id number] 18:46:00 Test Item Value Reference Range Interpretation Comments UA WBC (test code = 1 See_Comment [Automa elizabeth message] The UA WBC) system which ge nerated this result transmit elizabeth reference range : <=5. The reference range was not used to interpr et this result as margaret l/abnormal. [facility] AND [id number] 18:46:00 Test Item Value Reference Range Interpretation Comments UA Glucose (test code = UA Glucose) 30 mg/dL [facility] AND [id number] 18:46:00 Test Item Value Reference Range Interpretation Comments UA Protein (test code = UA Negative mg/dL Protein) [facility] AND [id number] 18:46:00 Test Item Value Reference Range Interpretation Comments UA pH (test code = UA pH) 6.5 5.0-8.0 [facility] AND [id number] 18:46:00 Test Item Value Reference Range Interpretation Comments UA Turbidity (test code = Clear (07/22/14 1:46 UA Turbidity) PM) [facility] [id number] 18:46:00 Test Item Value Reference Range Interpretation Comments UA Spec Grav (test code = UA Spec Grav) 1.010 [facility] AND [id number] 18:46:00 Test Item Value Reference Range Interpretation Comments UA Color (test code = Light Yellow UA Color) *NA*(07/22/14 1:46 PM) [facility]icsannCHEM [id number] 18:46:00 Test Item Value Reference Range Interpretation Comments Magnesium Lvl (test code = Magnesium 1.8 1.8-2.4 Lvl) [facility]HwcvhufTMLRVGXVFASF1940-10-62 18:46:00 Test Item Value Reference Range Interpretation Comments AGAP (test code = AGAP) 13.2 10.0-20.0 [facility] CenterPiotmahDNNAQAGAQZQV3755-18-10 18:46:00 Test Item Value Reference Range Interpretation Comments B/C Ratio (test code = B/C Ratio) 18 6-25 [facility] CenterHfmtprhNGJKXEXQYCJG1400-68-12 18:46:00 Test Item Value Reference Range Interpretation Comments A/G Ratio (test code = A/G Ratio) 1.1 0.7-1.6 [facility] CenterZnrpoxxPHWEHKAABZMT9443-94-86 18:46:00 Test Item Value Reference Range Interpretation Comments Globulin (test code = Globulin) 3.3 2.0-4.0 [facility] CenterLsrknfkYOIYSBMHXWHD3218-70-56 18:46:00 Test Item Value Reference Range Interpretation Comments eGFR (test code = eGFR) 99 [facility] CenterFousvcuVJITMBFCTLPA4354-39-17 18:46:00 Test Item Value Reference Range Interpretation Comments Calcium Lvl (test code = Calcium Lvl) 9.0 8.5-10.5 [facility] CenterTizyqhcDTLPESNFCCLC7582-86-17 18:46:00 Test Item Value Reference Range Interpretation Comments Chloride Lvl (test code = Chloride Lvl) 106 95-109 [facility] CenterKxnknwxQNEADTVOPISY7600-89-07 18:46:00 Test Item Value Reference Range Interpretation Comments Creatinine Lvl (test code = Creatinine 0.9 0.5-1.4 Lvl) [facility] CenterDsvkdczRPFGBQFWPJZU8427-83-68 18:46:00 Test Item Value Reference Range Interpretation Comments Potassium Lvl (test code = Potassium 4.2 3.5-5.1 Lvl) [facility] CenterMsmszftLNJLGAMUHRPK3703-17-65 18:46:00 Test Item Value Reference Range Interpretation Comments Sodium Lvl (test code = Sodium Lvl) 139 135-145 [facility] CenterFxitgqeSOVOCVDIXRDF3168-05-39 18:46:00 Test Item Value Reference Range Interpretation Comments CO2 (test code = CO2) 24 24-32 [facility] CenterBlopfilPTGZZCVDTIKW0104-37-78 18:46:00 Test Item Value Reference Range Interpretation Comments BUN (test code = BUN) 16 7-22 [facility] CenterAitcuxkIGQEFRYZHHEK1497-25-03 18:46:00 Test Item Value Reference Range Interpretation Comments Glucose Lvl (test code = Glucose Lvl) 141 70-99 [facility] CenterFpytzycPRFNMAQWHMMJ7038-17-20 18:46:00 Test Item Value Reference Range Interpretation Comments Albumin Lvl (test code = Albumin Lvl) 3.6 3.5-5.0 [facility] CenterBndftzcEKYMTZPRSMWD2633-84-78 18:46:00 Test Item Value Reference Range Interpretation Comments Alk Phos (test code = Alk Phos) 65 39-136 [facility] CenterYvatqhwOELDWLPFFZPP2979-28-31 18:46:00 Test Item Value Reference Range Interpretation Comments Bili Total (test code = Bili Total) 0.3 0.2-1.3 [facility] CenterLcvklwyZVDEPIBGWMUG8166-26-67 18:46:00 Test Item Value Reference Range Interpretation Comments ALT (test code = ALT) 100 See_Comment [Auto mated message] The system which ge nerated this result transmit elizabeth reference range : <=65. The reference range was not used to interpr et this result as margaret l/abnormal. [facility] CenterStynpdhAXCONBATYPTG9881-80-71 18:46:00 Test Item Value Reference Range Interpretation Comments AST (test code = AST) 53 See_Comment [Auto mated message] The system which ge nerated this result transmit elizabeth reference range : <=37. The reference range was not used to interpr et this result as margaret l/abnormal. [facility] CenterCgwpovfRFKFHLMDSAZK1918-78-26 18:46:00 Test Item Value Reference Range Interpretation Comments Total Protein (test code = Total 6.9 6.4-8.4 Protein) [facility] NorthwestIlzszbyGZTTCTYRUO8590-03-22 18:46:00 Test Item Value Reference Range Interpretation Comments Eosinophils (test code = 4.2 See_Comment [A utomated message] The Eosinophils) system which ge nerated this result tra nsmitted reference range : <=4.0. The reference r mitra was not used to int erpret this result as normal/abnormal . [facility] NorthwestGpskihiDAYBWHBIAI3966-31-10 18:46:00 Test Item Value Reference Range Interpretation Comments Segs (test code = Segs) 56.4 45.0-75.0 [facility] NorthwestRzokculJUBMBGLDXJ2135-02-34 18:46:00 Test Item Value Reference Range Interpretation Comments Monocytes (test code = Monocytes) 10.3 2.0-12.0 [facility] NorthwestKxxbaaeDIGUKDCGTP3555-82-63 18:46:00 Test Item Value Reference Range Interpretation Comments Lymphocytes (test code = Lymphocytes) 28.0 20.0-40.0 [facility] NorthwestRlmkmftBIZVMVGTAT2194-71-71 18:46:00 Test Item Value Reference Range Interpretation Comments Monocytes # (test code 0.5 See_Comment [Aut omated message] The = Monocytes #) system which generated this result tra nsmitted reference range : <=0.8. The reference r mitra was not used to int erpret this result as normal/abnormal . [facility] NorthwestHuqbzpdYEXFKVDZLA0552-49-06 18:46:00 Test Item Value Reference Range Interpretation Comments Basophils (test code = 1.1 See_Comment [Aut omated message] The Basophils) system which ge nerated this result tra nsmitted reference range : <=1.0. The reference r mitra was not used to int erpret this result as normal/abnormal . [facility] NorthwestQdeuyazZPNEFXGDUQ9161-04-18 18:46:00 Test Item Value Reference Range Interpretation Comments Lymphocytes # (test code = Lymphocytes 1.5 1.0-5.5 #) [facility] NorthwestOyktxzpBIGPQEKHEA4892-68-78 18:46:00 Test Item Value Reference Range Interpretation Comments Segs-Bands # (test code = Segs-Bands #) 2.9 1.5-8.1 [facility] NorthwestHeuztwqDAQEPQGPHQ7060-66-87 18:46:00 Test Item Value Reference Range Interpretation Comments Eosinophils # (test code 0.2 See_Comment [A utomated message] The = Eosinophils #) system whic h generated this result tra nsmitted reference range : <=0.5. The reference r mitra was not used to int erpret this result as normal/abnormal . [facility] NorthwestSdywszeCNDBCJTTLF9222-14-31 18:46:00 Test Item Value Reference Range Interpretation Comments Basophils # (test code 0.1 See_Comment [Aut omated message] The = Basophils #) system which generated this result tra nsmitted reference range : <=0.2. The reference r mitra was not used to int erpret this result as normal/abnormal . [facility] NorthwestCvcuyckEAKFMCUSIQ5289-18-42 18:46:00 Test Item Value Reference Range Interpretation Comments PT (test code = PT) 11.2 s 12.0-14.7 [facility] NorthwestEsogotlPYCBLCMJOO1240-91-66 18:46:00 Test Item Value Reference Range Interpretation Comments INR (test code = INR) 0.82 0.85-1.17 [facility] NorthwestUxjaagpKGWUWNHASQ5814-15-62 18:46:00 Test Item Value Reference Range Interpretation Comments PTT (test code = PTT) 28.6 s 22.9-35.8 [facility] NorthwestDathrisZSINAKMDZS1232-27-37 18:46:00 Test Item Value Reference Range Interpretation Comments MPV (test code = MPV) 8.1 7.4-10.4 [facility] NorthwestOkovyvsEYFCTJVQQF9888-87-91 18:46:00 Test Item Value Reference Range Interpretation Comments Platelet (test code = Platelet) 301 133-450 [facility] NorthwestNrbhmjoYSJPHKCGMG3508-16-68 18:46:00 Test Item Value Reference Range Interpretation Comments RDW (test code = RDW) 14.5 11.5-14.5 [facility] NorthwestWhiybdoFWUBBDJUXA5370-63-35 18:46:00 Test Item Value Reference Range Interpretation Comments RBC (test code = RBC) 4.84 4.70-6.10 [facility] NorthwestNbnbvgsXKARCCLUCZ9258-97-08 18:46:00 Test Item Value Reference Range Interpretation Comments Hgb (test code = Hgb) 14.4 14.0-18.0 [facility] NorthwestNesaqbeJTRQAWBSCR9482-18-71 18:46:00 Test Item Value Reference Range Interpretation Comments WBC (test code = WBC) 5.2 3.7-10.4 [facility] NorthwestDzroxolVGESOHPIGR3059-06-73 18:46:00 Test Item Value Reference Range Interpretation Comments MCH (test code = MCH) 29.8 pg 27.0-31.0 [facility] CampusBzfmdaoTJTKUXQLJI7383-14-03 18:46:00 Test Item Value Reference Range Interpretation Comments MCV (test code = MCV) 92.0 80.0-94.0 [facility] FjwfoymRXNFIYHQOD2832-38-73 18:46:00 Test Item Value Reference Range Interpretation Comments Hct (test code = Hct) 44.5 42.0-54.0 [facility] CampusTxmzxevOGAJKJIRCR3669-71-28 18:46:00 Test Item Value Reference Range Interpretation Comments MCHC (test code = MCHC) 32.4 32.0-36.0 [facility] CampusPpptibdAZLOLDSCIK1794-94-34 18:46:00 Test Item Value Reference Range Interpretation Comments [place]-Hep C Ab (test Negative *NA*(07/22/14 code = [place]-Hep C 1:46 PM) Ab) [facility] AND [id number] 18:46:00 Test Item Value Reference Range Interpretation Comments UA Urobilinogen (test code = UA <=1.0 mg/dL 0.1-1.0 Urobilinogen) [facility] AND [id number] 18:46:00 Test Item Value Reference Range Interpretation Comments UA Sq Epi (test code = UA Sq Epi) None Seen [facility] AND [id number] 18:46:00 Test Item Value Reference Range Interpretation Comments UA Leuk Est (test Negative (07/22/14 1:46 code = UA Leuk Est) PM) [facility] AND [id number] 18:46:00 Test Item Value Reference Range Interpretation Comments UA Nitrite (test code Negative (07/22/14 1:46 = UA Nitrite) PM) [facility] AND [id number] 18:46:00 Test Item Value Reference Range Interpretation Comments UA Blood (test code = Negative (07/22/14 1:46 UA Blood) PM) [facility] AND [id number] 18:46:00 Test Item Value Reference Range Interpretation Comments UA Ketones (test code = UA Negative mg/dL Ketones) [facility] AND [id number] 18:46:00 Test Item Value Reference Range Interpretation Comments UA Bili (test code = Negative *NA*(07/22/14 UA Bili) 1:46 PM) [facility] [id number] 18:46:00 Test Item Value Reference Range Interpretation Comments UA Bacteria (test code = UA Occasional /HPF Bacteria) [facility] [id number] 18:46:00 Test Item Value Reference Range Interpretation Comments UA RBC (test code = no gt See_Comment [Automa elizabeth message] The UA RBC) system which ge nerated this result transmit elizabeth reference range : <=2. The reference range was not used to interpr et this result as margaret l/abnormal. [facility] [id number] 18:46:00 Test Item Value Reference Range Interpretation Comments UA WBC (test code = 1 See_Comment [Automa elizabeth message] The UA WBC) system which ge nerated this result transmit elizabeth reference range : <=5. The reference range was not used to interpr et this result as margaret l/abnormal. [facility] [id number] 18:46:00 Test Item Value Reference Range Interpretation Comments UA Glucose (test code = UA Glucose) 30 mg/dL [facility] AND [id number] 18:46:00 Test Item Value Reference Range Interpretation Comments UA Protein (test code = UA Negative mg/dL Protein) [facility] [id number] 18:46:00 Test Item Value Reference Range Interpretation Comments UA pH (test code = UA pH) 6.5 5.0-8.0 [facility] AND [id number] 18:46:00 Test Item Value Reference Range Interpretation Comments UA Turbidity (test code = Clear (07/22/14 1:46 UA Turbidity) PM) [facility] [id number] 18:46:00 Test Item Value Reference Range Interpretation Comments UA Spec Grav (test code = UA Spec Grav) 1.010 [facility] [id number] 18:46:00 Test Item Value Reference Range Interpretation Comments UA Color (test code = Light Yellow UA Color) *NA*(07/22/14 1:46 PM) [facility] HospitalannCHEM [id number] 18:46:00 Test Item Value Reference Range Interpretation Comments Magnesium Lvl (test code = Magnesium 1.8 1.8-2.4 Lvl) [facility] CenterNrxmqpuZPPPWUYOCPEH7549-29-70 18:46:00 Test Item Value Reference Range Interpretation Comments AGAP (test code = AGAP) 13.2 10.0-20.0 [facility] CenterEaeingmFXTNZOYHCUBA1420-43-58 18:46:00 Test Item Value Reference Range Interpretation Comments B/C Ratio (test code = B/C Ratio) 18 6-25 [facility] CenterJzxmttsXCSQNBQUQBBX9990-35-85 18:46:00 Test Item Value Reference Range Interpretation Comments A/G Ratio (test code = A/G Ratio) 1.1 0.7-1.6 [facility] CenterAlluvanNLFWFGMGBITV3064-07-87 18:46:00 Test Item Value Reference Range Interpretation Comments Globulin (test code = Globulin) 3.3 2.0-4.0 [facility] CenterMzngcglTRNPIGVSCSYO8866-86-94 18:46:00 Test Item Value Reference Range Interpretation Comments eGFR (test code = eGFR) 99 [facility] CenterZghgixtKAIRBYQAPKJP6594-22-34 18:46:00 Test Item Value Reference Range Interpretation Comments Calcium Lvl (test code = Calcium Lvl) 9.0 8.5-10.5 [facility] CenterUjgqthpGBCDYCXSOOBJ2689-38-40 18:46:00 Test Item Value Reference Range Interpretation Comments Chloride Lvl (test code = Chloride Lvl) 106 95-109 [facility] CenterMaiayzqBJDHNSBUBFVU8102-41-51 18:46:00 Test Item Value Reference Range Interpretation Comments Creatinine Lvl (test code = Creatinine 0.9 0.5-1.4 Lvl) [facility] CenterQvckoysVRYESLSOTXNO5199-00-01 18:46:00 Test Item Value Reference Range Interpretation Comments Potassium Lvl (test code = Potassium 4.2 3.5-5.1 Lvl) [facility] CenterEmmiprjURNYKKIWIFGW8699-71-17 18:46:00 Test Item Value Reference Range Interpretation Comments Sodium Lvl (test code = Sodium Lvl) 139 135-145 [facility] CenterYspgixwIDXPWNNEGHPN7393-30-80 18:46:00 Test Item Value Reference Range Interpretation Comments CO2 (test code = CO2) 24 24-32 [facility] CenterAcbcwacYQQPHZOPXWJI6330-78-05 18:46:00 Test Item Value Reference Range Interpretation Comments BUN (test code = BUN) 16 7-22 [facility] CenterIbbzktbHBTIJVPGEDEF4428-21-56 18:46:00 Test Item Value Reference Range Interpretation Comments Glucose Lvl (test code = Glucose Lvl) 141 70-99 [facility] CenterOjdribgMUURVIVJPIOS5759-66-89 18:46:00 Test Item Value Reference Range Interpretation Comments Albumin Lvl (test code = Albumin Lvl) 3.6 3.5-5.0 [facility] CenterIdgalotQKLGMMPEJKRC8549-13-60 18:46:00 Test Item Value Reference Range Interpretation Comments Alk Phos (test code = Alk Phos) 65 39-136 [facility] CenterCwignndRJYPSIUQDJAI9286-29-71 18:46:00 Test Item Value Reference Range Interpretation Comments Bili Total (test code = Bili Total) 0.3 0.2-1.3 [facility] CenterUbsnhtxHVUNZLRPEEZM6291-76-17 18:46:00 Test Item Value Reference Range Interpretation Comments ALT (test code = ALT) 100 See_Comment [Auto mated message] The system which ge nerated this result transmit elizabeth reference range : <=65. The reference range was not used to interpr et this result as margaret l/abnormal. [facility] CenterTscplaiOTNRBDFUWBXU4494-13-55 18:46:00 Test Item Value Reference Range Interpretation Comments AST (test code = AST) 53 See_Comment [Auto mated message] The system which ge nerated this result transmit elizabeth reference range : <=37. The reference range was not used to interpr et this result as margaret l/abnormal. [facility] CenterEcgixviYRUFLJZHDFTM0192-71-67 18:46:00 Test Item Value Reference Range Interpretation Comments Total Protein (test code = Total 6.9 6.4-8.4 Protein) [facility] NorthwestUwypfpiPCXHTUOLRL9452-50-03 18:46:00 Test Item Value Reference Range Interpretation Comments Eosinophils (test code = 4.2 See_Comment [A utomated message] The Eosinophils) system which ge nerated this result tra nsmitted reference range : <=4.0. The reference r mitra was not used to int erpret this result as normal/abnormal . [facility] NorthwestOidlmmbBAHNYJNSOX2819-20-85 18:46:00 Test Item Value Reference Range Interpretation Comments Segs (test code = Segs) 56.4 45.0-75.0 [facility] NorthwestXlmphzxWXJNLWQVQV7992-86-58 18:46:00 Test Item Value Reference Range Interpretation Comments Monocytes (test code = Monocytes) 10.3 2.0-12.0 [facility] NorthwestPtvepbfGTWJVTDIXH9288-93-71 18:46:00 Test Item Value Reference Range Interpretation Comments Lymphocytes (test code = Lymphocytes) 28.0 20.0-40.0 [facility] NorthwestYsutrkoISKLYNVQBB6141-75-49 18:46:00 Test Item Value Reference Range Interpretation Comments Monocytes # (test code 0.5 See_Comment [Aut omated message] The = Monocytes #) system which generated this result tra nsmitted reference range : <=0.8. The reference r mitra was not used to int erpret this result as normal/abnormal . [facility] NorthwestVdslrdgHYVCFKDPOO7223-75-34 18:46:00 Test Item Value Reference Range Interpretation Comments Basophils (test code = 1.1 See_Comment [Aut omated message] The Basophils) system which ge nerated this result tra nsmitted reference range : <=1.0. The reference r mitra was not used to int erpret this result as normal/abnormal . [facility] NorthwestUmeqtbmFOOXFIJONV7319-08-76 18:46:00 Test Item Value Reference Range Interpretation Comments Lymphocytes # (test code = Lymphocytes 1.5 1.0-5.5 #) [facility] NorthwestYllfnmoGCHUHMZHJG7204-58-63 18:46:00 Test Item Value Reference Range Interpretation Comments Segs-Bands # (test code = Segs-Bands #) 2.9 1.5-8.1 [facility] NorthwestQdjaleeGAVORZNVFK5954-54-26 18:46:00 Test Item Value Reference Range Interpretation Comments Eosinophils # (test code 0.2 See_Comment [A utomated message] The = Eosinophils #) system ic h generated this result tra nsmitted reference range : <=0.5. The reference r mitra was not used to int erpret this result as normal/abnormal . [facility] NorthwestRcxyrvuTIEKRFUORV3918-96-03 18:46:00 Test Item Value Reference Range Interpretation Comments Basophils # (test code 0.1 See_Comment [Aut omated message] The = Basophils #) system which generated this result tra nsmitted reference range : <=0.2. The reference r mitra was not used to int erpret this result as normal/abnormal . [facility] NorthwestHpumhnqLFBXJFPXRZ7030-55-27 18:46:00 Test Item Value Reference Range Interpretation Comments PT (test code = PT) 11.2 s 12.0-14.7 [facility] NorthwestMmwgvggRKLMWMJTWA0774-77-72 18:46:00 Test Item Value Reference Range Interpretation Comments INR (test code = INR) 0.82 0.85-1.17 [facility] NorthwestQlhjgyvGBWPRQWBQX8863-23-58 18:46:00 Test Item Value Reference Range Interpretation Comments PTT (test code = PTT) 28.6 s 22.9-35.8 [facility] NorthwestHhbceqaUXYGCOIEXF9760-12-27 18:46:00 Test Item Value Reference Range Interpretation Comments MPV (test code = MPV) 8.1 7.4-10.4 [facility] NorthwestDaqncurGDPSKKCACC2938-29-36 18:46:00 Test Item Value Reference Range Interpretation Comments Platelet (test code = Platelet) 301 400-450 [facility] NorthwestYnlbwqnDFJLIHJWHR8449-42-45 18:46:00 Test Item Value Reference Range Interpretation Comments RDW (test code = RDW) 14.5 11.5-14.5 [facility] NorthwestKonmariMTETDIYKGJ5830-33-29 18:46:00 Test Item Value Reference Range Interpretation Comments RBC (test code = RBC) 4.84 4.70-6.10 [facility] NorthwestYgohswmUSVAGUBLEQ9488-54-14 18:46:00 Test Item Value Reference Range Interpretation Comments Hgb (test code = Hgb) 14.4 14.0-18.0 [facility] NorthwestXflfcbrLSKTVWFLTB8814-15-34 18:46:00 Test Item Value Reference Range Interpretation Comments WBC (test code = WBC) 5.2 3.7-10.4 [facility] NorthwestZdifivkBMDDPROHAU2550-33-43 18:46:00 Test Item Value Reference Range Interpretation Comments MCH (test code = MCH) 29.8 pg 27.0-31.0 [facility] NorthwestYavdsukLBHWUWQUXD1279-67-02 18:46:00 Test Item Value Reference Range Interpretation Comments MCV (test code = MCV) 92.0 80.0-94.0 [facility] NorthwestFytrjjvTMMWSTCMYB6275-82-25 18:46:00 Test Item Value Reference Range Interpretation Comments Hct (test code = Hct) 44.5 42.0-54.0 [facility] NorthwestYoujqxtHUZIIBEQME8909-77-54 18:46:00 Test Item Value Reference Range Interpretation Comments MCHC (test code = MCHC) 32.4 32.0-36.0 [facility] PdkqrgbQKQFSQJEEX3587-96-59 18:46:00 Test Item Value Reference Range Interpretation Comments [place]-Hep C Ab (test Negative *NA*(07/22/14 code = [place]-Hep C 1:46 PM) Ab) [facility] [id number] 18:46:00 Test Item Value Reference Range Interpretation Comments UA Urobilinogen (test code = UA <=1.0 mg/dL 0.1-1.0 Urobilinogen) [facility] AND [id number] 18:46:00 Test Item Value Reference Range Interpretation Comments UA Sq Epi (test code = UA Sq Epi) None Seen [facility] AND [id number] 18:46:00 Test Item Value Reference Range Interpretation Comments UA Leuk Est (test Negative (07/22/14 1:46 code = UA Leuk Est) PM) [facility] AND [id number] 18:46:00 Test Item Value Reference Range Interpretation Comments UA Nitrite (test code Negative (07/22/14 1:46 = UA Nitrite) PM) [facility] AND [id number] 18:46:00 Test Item Value Reference Range Interpretation Comments UA Blood (test code = Negative (07/22/14 1:46 UA Blood) PM) [facility] [id number] 18:46:00 Test Item Value Reference Range Interpretation Comments UA Ketones (test code = UA Negative mg/dL Ketones) [facility] AND [id number] 18:46:00 Test Item Value Reference Range Interpretation Comments UA Bili (test code = Negative *NA*(07/22/14 UA Bili) 1:46 PM) [facility] AND [id number] 18:46:00 Test Item Value Reference Range Interpretation Comments UA Bacteria (test code = UA Occasional /HPF Bacteria) [facility] AND [id number] 18:46:00 Test Item Value Reference Range Interpretation Comments UA RBC (test code = no gt See_Comment [Automa elizabeth message] The UA RBC) system which ge nerated this result transmit elizabeth reference range : <=2. The reference range was not used to interpr et this result as margaret l/abnormal. [facility] AND [id number] 18:46:00 Test Item Value Reference Range Interpretation Comments UA WBC (test code = 1 See_Comment [Automa elizabeth message] The UA WBC) system which ge nerated this result transmit elizabeth reference range : <=5. The reference range was not used to interpr et this result as margaret l/abnormal. [facility] AND [id number] 18:46:00 Test Item Value Reference Range Interpretation Comments UA Glucose (test code = UA Glucose) 30 mg/dL [facility] AND [id number] 18:46:00 Test Item Value Reference Range Interpretation Comments UA Protein (test code = UA Negative mg/dL Protein) [facility] AND [id number] 18:46:00 Test Item Value Reference Range Interpretation Comments UA pH (test code = UA pH) 6.5 5.0-8.0 [facility] AND [id number] 18:46:00 Test Item Value Reference Range Interpretation Comments UA Turbidity (test code = Clear (07/22/14 1:46 UA Turbidity) PM) [facility] AND [id number] 18:46:00 Test Item Value Reference Range Interpretation Comments UA Spec Grav (test code = UA Spec Grav) 1.010 [facility] AND [id number] 18:46:00 Test Item Value Reference Range Interpretation Comments UA Color (test code = Light Yellow UA Color) *NA*(07/22/14 1:46 PM) [facility] [id number] 18:46:00 Test Item Value Reference Range Interpretation Comments Magnesium Lvl (test code = Magnesium 1.8 1.8-2.4 Lvl) [facility]KpjnzoyXHIRYEJRYWYJ0165-80-02 18:46:00 Test Item Value Reference Range Interpretation Comments AGAP (test code = AGAP) 13.2 10.0-20.0 [facility] CenterInnuiuyBPAWBLJVNWQM8627-57-46 18:46:00 Test Item Value Reference Range Interpretation Comments B/C Ratio (test code = B/C Ratio) 18 6-25 [facility] CenterCuwgclfSOZLFDMFAKOE1628-21-16 18:46:00 Test Item Value Reference Range Interpretation Comments A/G Ratio (test code = A/G Ratio) 1.1 0.7-1.6 [facility] CenterRoqqjzhJWWOBECTNJGA4498-57-27 18:46:00 Test Item Value Reference Range Interpretation Comments Globulin (test code = Globulin) 3.3 2.0-4.0 [facility] CenterNkijwolXGCABLJFUZPF9478-35-40 18:46:00 Test Item Value Reference Range Interpretation Comments eGFR (test code = eGFR) 99 [facility] CenterQrpcfzcRLIAXAZBPIRZ8325-78-40 18:46:00 Test Item Value Reference Range Interpretation Comments Calcium Lvl (test code = Calcium Lvl) 9.0 8.5-10.5 [facility] CenterUrhspdpIHWUHAEVYTQE6030-40-81 18:46:00 Test Item Value Reference Range Interpretation Comments Chloride Lvl (test code = Chloride Lvl) 106 95-109 [facility] CenterPphwqlxTOCOTFUJUTJH7920-75-65 18:46:00 Test Item Value Reference Range Interpretation Comments Creatinine Lvl (test code = Creatinine 0.9 0.5-1.4 Lvl) [facility] CenterRvasndsLWSFXWBQTSRA4347-36-91 18:46:00 Test Item Value Reference Range Interpretation Comments Potassium Lvl (test code = Potassium 4.2 3.5-5.1 Lvl) [facility] CenterCbuveprSGOYJSWHMQKC8742-75-86 18:46:00 Test Item Value Reference Range Interpretation Comments Sodium Lvl (test code = Sodium Lvl) 139 135-145 [facility] CenterJufygxhTVLQNYLITTFN0017-65-92 18:46:00 Test Item Value Reference Range Interpretation Comments CO2 (test code = CO2) 24 24-32 [facility] CenterBefgqfeOWJMOZQOIPVQ0455-32-61 18:46:00 Test Item Value Reference Range Interpretation Comments BUN (test code = BUN) 16 7-22 [facility] CenterBkblguqXTMBOQPROPFY4812-30-52 18:46:00 Test Item Value Reference Range Interpretation Comments Glucose Lvl (test code = Glucose Lvl) 141 70-99 [facility] CenterAohalogFDNQUVHTOWUV1255-62-09 18:46:00 Test Item Value Reference Range Interpretation Comments Albumin Lvl (test code = Albumin Lvl) 3.6 3.5-5.0 [facility] CenterGphreolQMXKLDVSVAHK2551-76-71 18:46:00 Test Item Value Reference Range Interpretation Comments Alk Phos (test code = Alk Phos) 65 39-136 [facility] CenterMgvbqhyJJVKOTLQLHDV7646-84-56 18:46:00 Test Item Value Reference Range Interpretation Comments Bili Total (test code = Bili Total) 0.3 0.2-1.3 [facility] CenterHeykgzgEHLVOSRFKIFG2578-75-64 18:46:00 Test Item Value Reference Range Interpretation Comments ALT (test code = ALT) 100 See_Comment [Auto mated message] The system which ge nerated this result transmit elizabteh reference range : <=65. The reference range was not used to interpr et this result as margaret l/abnormal. [facility] CenterQxmuvccNWCBPHWOVLJA0951-18-94 18:46:00 Test Item Value Reference Range Interpretation Comments AST (test code = AST) 53 See_Comment [Auto mated message] The system which ge nerated this result transmit elizabeth reference range : <=37. The reference range was not used to interpr et this result as margaret l/abnormal. [facility] CenterGjgsdloKLOZITHYXJSO6279-49-28 18:46:00 Test Item Value Reference Range Interpretation Comments Total Protein (test code = Total 6.9 6.4-8.4 Protein) [facility] NorthwestSfqhighFCZMMGAJQW5253-60-66 18:46:00 Test Item Value Reference Range Interpretation Comments Eosinophils (test code = 4.2 See_Comment [A utomated message] The Eosinophils) system which ge nerated this result tra nsmitted reference range : <=4.0. The reference r mitra was not used to int erpret this result as normal/abnormal . [facility] NorthwestXracqpdCFKQUJVVXN8552-41-04 18:46:00 Test Item Value Reference Range Interpretation Comments Segs (test code = Segs) 56.4 45.0-75.0 [facility] NorthwestHwaujcgOFUGHNGNWM7348-97-11 18:46:00 Test Item Value Reference Range Interpretation Comments Monocytes (test code = Monocytes) 10.3 2.0-12.0 [facility] NorthwestXivocdcGSCBFGOEYK1729-37-23 18:46:00 Test Item Value Reference Range Interpretation Comments Lymphocytes (test code = Lymphocytes) 28.0 20.0-40.0 [facility] NorthwestDypewrfCJUILOGIGS8807-79-94 18:46:00 Test Item Value Reference Range Interpretation Comments Monocytes # (test code 0.5 See_Comment [Aut omated message] The = Monocytes #) system which generated this result tra nsmitted reference range : <=0.8. The reference r mitra was not used to int erpret this result as normal/abnormal . [facility] NorthwestKydwmzbDOFKILTHHN2141-17-82 18:46:00 Test Item Value Reference Range Interpretation Comments Basophils (test code = 1.1 See_Comment [Aut omated message] The Basophils) system which ge nerated this result tra nsmitted reference range : <=1.0. The reference r mitra was not used to int erpret this result as normal/abnormal . [facility] NorthwestYfoeykxAVTEMYJZPE8838-10-37 18:46:00 Test Item Value Reference Range Interpretation Comments Lymphocytes # (test code = Lymphocytes 1.5 1.0-5.5 #) [facility] NorthwestGudmikiZZBVMBGHHO7621-87-44 18:46:00 Test Item Value Reference Range Interpretation Comments Segs-Bands # (test code = Segs-Bands #) 2.9 1.5-8.1 [facility] NorthwestCettnkuWRGBZBUBCU2034-03-00 18:46:00 Test Item Value Reference Range Interpretation Comments Eosinophils # (test code 0.2 See_Comment [A utomated message] The = Eosinophils #) system [facility] h generated this result tra nsmitted reference range : <=0.5. The reference r mitra was not used to int erpret this result as normal/abnormal . [facility] NorthwestMqmjcwfFWMINUYKJC2359-53-36 18:46:00 Test Item Value Reference Range Interpretation Comments Basophils # (test code 0.1 See_Comment [Aut omated message] The = Basophils #) system which generated this result tra nsmitted reference range : <=0.2. The reference r mitra was not used to int erpret this result as normal/abnormal . [facility] NorthwestWuymzhqMLXGNZYHQM6739-61-60 18:46:00 Test Item Value Reference Range Interpretation Comments PT (test code = PT) 11.2 s 12.0-14.7 [facility] NorthwestZpfeaqbWSDNLMEGQA6664-82-03 18:46:00 Test Item Value Reference Range Interpretation Comments INR (test code = INR) 0.82 0.85-1.17 [facility] NorthwestKoanrllEYIYWJEVFB4510-57-26 18:46:00 Test Item Value Reference Range Interpretation Comments PTT (test code = PTT) 28.6 s 22.9-35.8 [facility] NorthwestWxgpmgjZJTGQODSWN9085-26-46 18:46:00 Test Item Value Reference Range Interpretation Comments MPV (test code = MPV) 8.1 7.4-10.4 [facility] NorthwestAxlebslLUEELOOPDQ3650-74-00 18:46:00 Test Item Value Reference Range Interpretation Comments Platelet (test code = Platelet) 301 133-450 [facility] NorthwestYnekngjWEUDMZOXTT7389-87-19 18:46:00 Test Item Value Reference Range Interpretation Comments RDW (test code = RDW) 14.5 11.5-14.5 [facility] NorthwestFiopervJFFPHAEKVD5475-33-53 18:46:00 Test Item Value Reference Range Interpretation Comments RBC (test code = RBC) 4.84 4.70-6.10 [facility] NorthwestHxaufjfGSZDVOBYSR8231-97-53 18:46:00 Test Item Value Reference Range Interpretation Comments Hgb (test code = Hgb) 14.4 14.0-18.0 [facility] NorthwestWgxauynWDOUPSVTDC2274-24-23 18:46:00 Test Item Value Reference Range Interpretation Comments WBC (test code = WBC) 5.2 3.7-10.4 [facility] NorthwestIzfuajnLUDVZJIFIW7667-22-59 18:46:00 Test Item Value Reference Range Interpretation Comments MCH (test code = MCH) 29.8 pg 27.0-31.0 [facility] NorthwestRkdhhyvQFKMVJDIGI1584-49-65 18:46:00 Test Item Value Reference Range Interpretation Comments MCV (test code = MCV) 92.0 80.0-94.0 [facility] NorthwestBmhnfdlJLFSRLQQAI6393-96-64 18:46:00 Test Item Value Reference Range Interpretation Comments Hct (test code = Hct) 44.5 42.0-54.0 [facility] NorthwestPrfcsvsDOBISHGAZG1893-56-70 18:46:00 Test Item Value Reference Range Interpretation Comments MCHC (test code = MCHC) 32.4 32.0-36.0 [facility]InspslrKECSWLUUXK3247-15-20 18:46:00 Test Item Value Reference Range Interpretation Comments [place]-Hep C Ab (test Negative *NA*(07/22/14 code = [place]-Hep C 1:46 PM) Ab) [facility] AND [id number] 18:46:00 Test Item Value Reference Range Interpretation Comments UA Urobilinogen (test code = UA <=1.0 mg/dL 0.1-1.0 Urobilinogen) [facility] AND [id number] 18:46:00 Test Item Value Reference Range Interpretation Comments UA Sq Epi (test code = UA Sq Epi) None Seen [facility] AND [id number] 18:46:00 Test Item Value Reference Range Interpretation Comments UA Leuk Est (test Negative (07/22/14 1:46 code = UA Leuk Est) PM) [facility] AND [id number] 18:46:00 Test Item Value Reference Range Interpretation Comments UA Nitrite (test code Negative (07/22/14 1:46 = UA Nitrite) PM) [facility] AND [id number] 18:46:00 Test Item Value Reference Range Interpretation Comments UA Blood (test code = Negative (07/22/14 1:46 UA Blood) PM) [facility] AND [id number] 18:46:00 Test Item Value Reference Range Interpretation Comments UA Ketones (test code = UA Negative mg/dL Ketones) [facility] AND [id number] 18:46:00 Test Item Value Reference Range Interpretation Comments UA Bili (test code = Negative *NA*(07/22/14 UA Bili) 1:46 PM) [facility] AND [id number] 18:46:00 Test Item Value Reference Range Interpretation Comments UA Bacteria (test code = UA Occasional /HPF Bacteria) [facility] AND [id number] 18:46:00 Test Item Value Reference Range Interpretation Comments UA RBC (test code = no gt See_Comment [Automa elizabeth message] The UA RBC) system which ge nerated this result transmit elizabeth reference range : <=2. The reference range was not used to interpr et this result as margaret l/abnormal. [facility] AND [id number] 18:46:00 Test Item Value Reference Range Interpretation Comments UA WBC (test code = 1 See_Comment [Automa elizabeth message] The UA WBC) system which ge nerated this result transmit elizabeth reference range : <=5. The reference range was not used to interpr et this result as margaret l/abnormal. [facility] AND [id number] 18:46:00 Test Item Value Reference Range Interpretation Comments UA Glucose (test code = UA Glucose) 30 mg/dL [facility] AND [id number] 18:46:00 Test Item Value Reference Range Interpretation Comments UA Protein (test code = UA Negative mg/dL Protein) [facility] AND [id number] 18:46:00 Test Item Value Reference Range Interpretation Comments UA pH (test code = UA pH) 6.5 5.0-8.0 [facility] AND [id number] 18:46:00 Test Item Value Reference Range Interpretation Comments UA Turbidity (test code = Clear (07/22/14 1:46 UA Turbidity) PM) [facility] AND [id number] 18:46:00 Test Item Value Reference Range Interpretation Comments UA Spec Grav (test code = UA Spec Grav) 1.010 [facility] AND [id number] 18:46:00 Test Item Value Reference Range Interpretation Comments UA Color (test code = Light Yellow UA Color) *NA*(07/22/14 1:46 PM) [facility] [id number] 18:46:00 Test Item Value Reference Range Interpretation Comments Magnesium Lvl (test code = Magnesium 1.8 1.8-2.4 Lvl) [facility] CenterFbimdgwXUHUYYDLYXFX6059-90-56 18:46:00 Test Item Value Reference Range Interpretation Comments AGAP (test code = AGAP) 13.2 10.0-20.0 [facility] CenterCulalctRTTPURNADZYX3692-39-69 18:46:00 Test Item Value Reference Range Interpretation Comments B/C Ratio (test code = B/C Ratio) 18 6-25 [facility] CenterFpdwqvjRLTJUETMSQFF5354-57-75 18:46:00 Test Item Value Reference Range Interpretation Comments A/G Ratio (test code = A/G Ratio) 1.1 0.7-1.6 [facility] CenterPrdqqmuARGFWYXQCKEG3087-11-60 18:46:00 Test Item Value Reference Range Interpretation Comments Globulin (test code = Globulin) 3.3 2.0-4.0 [facility] CenterZiibnpfMSJXVIDTUJQH8441-78-78 18:46:00 Test Item Value Reference Range Interpretation Comments eGFR (test code = eGFR) 99 [facility] CenterVqyfkexDXRPXWYZPVSM2976-75-93 18:46:00 Test Item Value Reference Range Interpretation Comments Calcium Lvl (test code = Calcium Lvl) 9.0 8.5-10.5 [facility] CenterSgdiawvFVQSEIWTBGKZ3274-24-35 18:46:00 Test Item Value Reference Range Interpretation Comments Chloride Lvl (test code = Chloride Lvl) 106 95-109 [facility] CenterPriecyfZTJDRZZXTJQM4055-10-75 18:46:00 Test Item Value Reference Range Interpretation Comments Creatinine Lvl (test code = Creatinine 0.9 0.5-1.4 Lvl) [facility] CenterKwpzmavJGQREHTZPREO2968-00-31 18:46:00 Test Item Value Reference Range Interpretation Comments Potassium Lvl (test code = Potassium 4.2 3.5-5.1 Lvl) [facility] CenterYmqnbnyZBQSWOTVDIVH9554-18-64 18:46:00 Test Item Value Reference Range Interpretation Comments Sodium Lvl (test code = Sodium Lvl) 139 135-145 [facility] CenterAezgommIRUGJQTVPJSH4990-35-91 18:46:00 Test Item Value Reference Range Interpretation Comments CO2 (test code = CO2) 24 24-32 [facility] CenterUykssdxKGIHSFGZJYSP8355-80-02 18:46:00 Test Item Value Reference Range Interpretation Comments BUN (test code = BUN) 16 7-22 [facility] CenterCqrhccsDHYRZCHOPRPV2821-88-29 18:46:00 Test Item Value Reference Range Interpretation Comments Glucose Lvl (test code = Glucose Lvl) 141 70-99 [facility] CenterUpnkgvgBKUNXXEYWVDF0888-85-93 18:46:00 Test Item Value Reference Range Interpretation Comments Albumin Lvl (test code = Albumin Lvl) 3.6 3.5-5.0 [facility] CenterYvsbhjcQGHFABBKFCAU6579-99-74 18:46:00 Test Item Value Reference Range Interpretation Comments Alk Phos (test code = Alk Phos) 65 39-136 [facility] CenterDrbarsnUJOTBJEJJDNE4666-08-02 18:46:00 Test Item Value Reference Range Interpretation Comments Bili Total (test code = Bili Total) 0.3 0.2-1.3 [facility] CenterUwiswmvHVHXJHPRJKWG5165-09-47 18:46:00 Test Item Value Reference Range Interpretation Comments ALT (test code = ALT) 100 See_Comment [Auto mated message] The system which ge nerated this result transmit elizabeth reference range : <=65. The reference range was not used to interpr et this result as margaret l/abnormal. [facility] CenterMawvsxdAISZSTCPTSPP3430-35-98 18:46:00 Test Item Value Reference Range Interpretation Comments AST (test code = AST) 53 See_Comment [Auto mated message] The system which ge nerated this result transmit elizabeth reference range : <=37. The reference range was not used to interpr et this result as margaret l/abnormal. [facility] CenterBznuhuyTWBRHVMLVVKH1055-38-70 18:46:00 Test Item Value Reference Range Interpretation Comments Total Protein (test code = Total 6.9 6.4-8.4 Protein) [facility] NorthwestCuscklvNNGCLLZWWS3416-62-77 18:46:00 Test Item Value Reference Range Interpretation Comments Eosinophils (test code = 4.2 See_Comment [A utomated message] The Eosinophils) system which ge nerated this result tra nsmitted reference range : <=4.0. The reference r mitra was not used to int erpret this result as normal/abnormal . [facility] NorthwestDzrjckaEJCXGGOOMN7684-32-94 18:46:00 Test Item Value Reference Range Interpretation Comments Segs (test code = Segs) 56.4 45.0-75.0 [facility] NorthwestBeqqoydNRCYTYOIFL2283-97-15 18:46:00 Test Item Value Reference Range Interpretation Comments Monocytes (test code = Monocytes) 10.3 2.0-12.0 [facility] NorthwestAwwlglnJQXQKLSOFX0819-98-60 18:46:00 Test Item Value Reference Range Interpretation Comments Lymphocytes (test code = Lymphocytes) 28.0 20.0-40.0 [facility] NorthwestDtyngsoHEYOUQTVOL5611-81-72 18:46:00 Test Item Value Reference Range Interpretation Comments Monocytes # (test code 0.5 See_Comment [Aut omated message] The = Monocytes #) system which generated this result tra nsmitted reference range : <=0.8. The reference r mitra was not used to int erpret this result as normal/abnormal . [facility] NorthwestOsafxqkOWTDXDBLZA4122-61-82 18:46:00 Test Item Value Reference Range Interpretation Comments Basophils (test code = 1.1 See_Comment [Aut omated message] The Basophils) system which ge nerated this result tra nsmitted reference range : <=1.0. The reference r mitra was not used to int erpret this result as normal/abnormal . [facility] NorthwestTeomrynGDYTADALLA1352-86-79 18:46:00 Test Item Value Reference Range Interpretation Comments Lymphocytes # (test code = Lymphocytes 1.5 1.0-5.5 #) [facility] NorthwestWfqsijlFJROGKTRSO1621-44-65 18:46:00 Test Item Value Reference Range Interpretation Comments Segs-Bands # (test code = Segs-Bands #) 2.9 1.5-8.1 [facility] NorthwestFgwdykjVTEQOCJEPM8552-68-72 18:46:00 Test Item Value Reference Range Interpretation Comments Eosinophils # (test code 0.2 See_Comment [A utomated message] The = Eosinophils #) system whic h generated this result tra nsmitted reference range : <=0.5. The reference r mitra was not used to int erpret this result as normal/abnormal . [facility] NorthwestWvruovjNGVETMOEDO8986-61-08 18:46:00 Test Item Value Reference Range Interpretation Comments Basophils # (test code 0.1 See_Comment [Aut omated message] The = Basophils #) system which generated this result tra nsmitted reference range : <=0.2. The reference r mitra was not used to int erpret this result as normal/abnormal . [facility] NorthwestRxwmrqgMFGVIZLQHL4075-88-11 18:46:00 Test Item Value Reference Range Interpretation Comments PT (test code = PT) 11.2 s 12.0-14.7 [facility] NorthwestAehousgBINZGDSMLC9248-36-93 18:46:00 Test Item Value Reference Range Interpretation Comments INR (test code = INR) 0.82 0.85-1.17 [facility] NorthwestZwgwpjjYBLAEWORIM7334-83-04 18:46:00 Test Item Value Reference Range Interpretation Comments PTT (test code = PTT) 28.6 s 22.9-35.8 [facility] NorthwestZzpeliuRPAKPUDHWW2560-53-48 18:46:00 Test Item Value Reference Range Interpretation Comments MPV (test code = MPV) 8.1 7.4-10.4 [facility] NorthwestVketcdnCAIDNYAUHU7454-47-88 18:46:00 Test Item Value Reference Range Interpretation Comments Platelet (test code = Platelet) 301 133-450 [facility] NorthwestWahyvdtAQAFMGDIVR0071-00-20 18:46:00 Test Item Value Reference Range Interpretation Comments RDW (test code = RDW) 14.5 11.5-14.5 [facility] NorthwestSavouftUUAPXTTVMK1360-46-75 18:46:00 Test Item Value Reference Range Interpretation Comments RBC (test code = RBC) 4.84 4.70-6.10 [facility] NorthwestYmogsbkWBZNHIPPHW6798-85-61 18:46:00 Test Item Value Reference Range Interpretation Comments Hgb (test code = Hgb) 14.4 14.0-18.0 [facility]WvhmplhGDKAJEEFTG0747-49-24 18:46:00 Test Item Value Reference Range Interpretation Comments WBC (test code = WBC) 5.2 3.7-10.4 [facility]JsdsiggBOHYQJPWXD8160-77-79 18:46:00 Test Item Value Reference Range Interpretation Comments MCH (test code = MCH) 29.8 pg 27.0-31.0 [facility] NorthwestAesvttrXWBAWJWWWK2121-87-63 18:46:00 Test Item Value Reference Range Interpretation Comments MCV (test code = MCV) 92.0 80.0-94.0 [facility]OridfbqEWWEPAINZT8474-02-67 18:46:00 Test Item Value Reference Range Interpretation Comments Hct (test code = Hct) 44.5 42.0-54.0 [facility] HospitalLetpixkJVNDSCYUYA5802-88-69 18:46:00 Test Item Value Reference Range Interpretation Comments MCHC (test code = MCHC) 32.4 32.0-36.0 [facility] CampusQjkcfesKUGQDZGXQR3138-80-74 18:46:00 Test Item Value Reference Range Interpretation Comments [place]-Hep C Ab (test Negative *NA*(07/22/14 code = [place]-Hep C 1:46 PM) Ab) [facility] AND [id number] 18:46:00 Test Item Value Reference Range Interpretation Comments UA Urobilinogen (test code = UA <=1.0 mg/dL 0.1-1.0 Urobilinogen) [facility] AND [id number] 18:46:00 Test Item Value Reference Range Interpretation Comments UA Sq Epi (test code = UA Sq Epi) None Seen [facility] AND [id number] 18:46:00 Test Item Value Reference Range Interpretation Comments UA Leuk Est (test Negative (07/22/14 1:46 code = UA Leuk Est) PM) [facility] AND [id number] 18:46:00 Test Item Value Reference Range Interpretation Comments UA Nitrite (test code Negative (07/22/14 1:46 = UA Nitrite) PM) [facility] AND [id number] 18:46:00 Test Item Value Reference Range Interpretation Comments UA Blood (test code = Negative (07/22/14 1:46 UA Blood) PM) [facility] AND [id number] 18:46:00 Test Item Value Reference Range Interpretation Comments UA Ketones (test code = UA Negative mg/dL Ketones) [facility] AND [id number] 18:46:00 Test Item Value Reference Range Interpretation Comments UA Bili (test code = Negative *NA*(07/22/14 UA Bili) 1:46 PM) [facility] AND [id number] 18:46:00 Test Item Value Reference Range Interpretation Comments UA Bacteria (test code = UA Occasional /HPF Bacteria) [facility] AND [id number] 18:46:00 Test Item Value Reference Range Interpretation Comments UA RBC (test code = no gt See_Comment [Automa elizabeth message] The UA RBC) system which ge nerated this result transmit elizabeth reference range : <=2. The reference range was not used to interpr et this result as margaret l/abnormal. [facility] AND [id number] 18:46:00 Test Item Value Reference Range Interpretation Comments UA WBC (test code = 1 See_Comment [Automa elizabeth message] The UA WBC) system which ge nerated this result transmit elizabeth reference range : <=5. The reference range was not used to interpr et this result as margaret l/abnormal. [facility] AND [id number] 18:46:00 Test Item Value Reference Range Interpretation Comments UA Glucose (test code = UA Glucose) 30 mg/dL [facility] AND [id number] 18:46:00 Test Item Value Reference Range Interpretation Comments UA Protein (test code = UA Negative mg/dL Protein) [facility] AND [id number] 18:46:00 Test Item Value Reference Range Interpretation Comments UA pH (test code = UA pH) 6.5 5.0-8.0 [facility] AND [id number] 18:46:00 Test Item Value Reference Range Interpretation Comments UA Turbidity (test code = Clear (07/22/14 1:46 UA Turbidity) PM) [facility] AND [id number] 18:46:00 Test Item Value Reference Range Interpretation Comments UA Spec Grav (test code = UA Spec Grav) 1.010 [facility] AND [id number] 18:46:00 Test Item Value Reference Range Interpretation Comments UA Color (test code = Light Yellow UA Color) *NA*(07/22/14 1:46 PM) [facility] [id number] 18:46:00 Test Item Value Reference Range Interpretation Comments Magnesium Lvl (test code = Magnesium 1.8 1.8-2.4 Lvl) [facility]MgshzarUDJBKTGLGGEY8139-36-71 18:46:00 Test Item Value Reference Range Interpretation Comments AGAP (test code = AGAP) 13.2 10.0-20.0 [facility] CenterPgfnteoYSRCAZXGXPQI6914-32-99 18:46:00 Test Item Value Reference Range Interpretation Comments B/C Ratio (test code = B/C Ratio) 18 6-25 [facility] CenterHydmhiyHOVVXFOLLMLC7088-88-25 18:46:00 Test Item Value Reference Range Interpretation Comments A/G Ratio (test code = A/G Ratio) 1.1 0.7-1.6 [facility] CenterBcglploIIDWQEMTTDFZ6901-91-84 18:46:00 Test Item Value Reference Range Interpretation Comments Globulin (test code = Globulin) 3.3 2.0-4.0 [facility] CenterMihhgflZFBATECGYXWP2878-11-02 18:46:00 Test Item Value Reference Range Interpretation Comments eGFR (test code = eGFR) 99 [facility] CenterAvxikokYZXHRTTDTQUQ5379-44-29 18:46:00 Test Item Value Reference Range Interpretation Comments Calcium Lvl (test code = Calcium Lvl) 9.0 8.5-10.5 [facility] CenterKpudzgaCPAWWKHHOGTN6480-44-98 18:46:00 Test Item Value Reference Range Interpretation Comments Chloride Lvl (test code = Chloride Lvl) 106 95-109 [facility] CenterEhdbbxsEDTFEBKGFDIA8384-22-06 18:46:00 Test Item Value Reference Range Interpretation Comments Creatinine Lvl (test code = Creatinine 0.9 0.5-1.4 Lvl) [facility] CenterXzexsozMLXOZBVATOZS0871-15-67 18:46:00 Test Item Value Reference Range Interpretation Comments Potassium Lvl (test code = Potassium 4.2 3.5-5.1 Lvl) [facility] CenterAqctfxdYKKQKAUOOMHS1204-62-06 18:46:00 Test Item Value Reference Range Interpretation Comments Sodium Lvl (test code = Sodium Lvl) 139 135-145 [facility] CenterXtucbhlAHQMGLUOOEUE9319-49-84 18:46:00 Test Item Value Reference Range Interpretation Comments CO2 (test code = CO2) 24 24-32 [facility] CenterLcopvrtQVWJYMNVPWPY4172-53-51 18:46:00 Test Item Value Reference Range Interpretation Comments BUN (test code = BUN) 16 7-22 [facility] CenterTyrfchtCUVIDSYREOVQ2483-32-45 18:46:00 Test Item Value Reference Range Interpretation Comments Glucose Lvl (test code = Glucose Lvl) 141 70-99 [facility] CenterOihbkmgZFHHRBKJBRPO5879-26-85 18:46:00 Test Item Value Reference Range Interpretation Comments Albumin Lvl (test code = Albumin Lvl) 3.6 3.5-5.0 [facility] CenterImayareSFYEZRJJDXDD6816-22-71 18:46:00 Test Item Value Reference Range Interpretation Comments Alk Phos (test code = Alk Phos) 65 39-136 [facility] CenterNjrjjubTLMPWOMXIYFO4772-68-19 18:46:00 Test Item Value Reference Range Interpretation Comments Bili Total (test code = Bili Total) 0.3 0.2-1.3 [facility] CenterSfkjeijSJVYLNTMNUWH8272-16-91 18:46:00 Test Item Value Reference Range Interpretation Comments ALT (test code = ALT) 100 See_Comment [Auto mated message] The system which ge nerated this result transmit elizabeth reference range : <=65. The reference range was not used to interpr et this result as margaret l/abnormal. [facility] CenterHqpzozoHCDBDWEXFPWT5425-50-21 18:46:00 Test Item Value Reference Range Interpretation Comments AST (test code = AST) 53 See_Comment [Auto mated message] The system which ge nerated this result transmit elizabeth reference range : <=37. The reference range was not used to interpr et this result as margaret l/abnormal. [facility] CenterRoateheLLEJXKGDYPMQ8080-56-80 18:46:00 Test Item Value Reference Range Interpretation Comments Total Protein (test code = Total 6.9 6.4-8.4 Protein) [facility] CampusGijebczSMHJLTCIKG0701-88-36 18:46:00 Test Item Value Reference Range Interpretation Comments Eosinophils (test code = 4.2 See_Comment [A utomated message] The Eosinophils) system which ge nerated this result tra nsmitted reference range : <=4.0. The reference r mitra was not used to int erpret this result as normal/abnormal . [facility]2015-06-09 18:46:00 Test Item Value Reference Range Interpretation Comments Magnesium Lvl (test code = Magnesium 1.8 1.8-2.4 Lvl) [facility] NorthwestWdsyvqiIWQLSWYOWP7755-29-97 18:46:00 Test Item Value Reference Range Interpretation Comments Segs (test code = Segs) 56.4 45.0-75.0 [facility] CenterWqnqytaRGSTLIWAOHQT3855-37-49 18:46:00 Test Item Value Reference Range Interpretation Comments AGAP (test code = AGAP) 13.2 10.0-20.0 [facility] NorthwestPokggytAWJDGUXAEC6323-00-96 18:46:00 Test Item Value Reference Range Interpretation Comments Monocytes (test code = Monocytes) 10.3 2.0-12.0 [facility] CenterMbwsddmFKLYUDUAWNGT9459-43-50 18:46:00 Test Item Value Reference Range Interpretation Comments B/C Ratio (test code = B/C Ratio) 18 6-25 [facility] NorthwestYijzjjrXLDFYJLKEC9109-66-04 18:46:00 Test Item Value Reference Range Interpretation Comments Lymphocytes (test code = Lymphocytes) 28.0 20.0-40.0 [facility] CenterXengzneIRLYGVITHDZH8683-43-99 18:46:00 Test Item Value Reference Range Interpretation Comments A/G Ratio (test code = A/G Ratio) 1.1 0.7-1.6 [facility] NorthwestMbgdekfSZZAWSTTAC4863-61-93 18:46:00 Test Item Value Reference Range Interpretation Comments Monocytes # (test code 0.5 See_Comment [Aut omated message] The = Monocytes #) system which generated this result tra nsmitted reference range : <=0.8. The reference r mitra was not used to int erpret this result as normal/abnormal . [facility] NorthwestEsoecetUSYMJSALAM6880-66-54 18:46:00 Test Item Value Reference Range Interpretation Comments Basophils (test code = 1.1 See_Comment [Aut omated message] The Basophils) system which ge nerated this result tra nsmitted reference range : <=1.0. The reference r mitra was not used to int erpret this result as normal/abnormal . [facility] CenterMespkuuGVFPAMDGBFJB7613-91-35 18:46:00 Test Item Value Reference Range Interpretation Comments Globulin (test code = Globulin) 3.3 2.0-4.0 [facility] NorthwestJlaxcqqERUWYHAZXR3862-32-84 18:46:00 Test Item Value Reference Range Interpretation Comments Lymphocytes # (test code = Lymphocytes 1.5 1.0-5.5 #) [facility] CenterLdsylxaRYVLRJBAMTCE2554-60-14 18:46:00 Test Item Value Reference Range Interpretation Comments eGFR (test code = eGFR) 99 [facility] NorthwestNitwokxOISSTKAGVU5399-57-31 18:46:00 Test Item Value Reference Range Interpretation Comments Segs-Bands # (test code = Segs-Bands #) 2.9 1.5-8.1 [facility] NorthwestRasgynlUOQYJJYMOZ4440-77-96 18:46:00 Test Item Value Reference Range Interpretation Comments Eosinophils # (test code 0.2 See_Comment [A utomated message] The = Eosinophils #) system whic h generated this result tra nsmitted reference range : <=0.5. The reference r mitra was not used to int erpret this result as normal/abnormal . [facility] CenterOmfudxfQDXNSAJQDYTU5027-26-08 18:46:00 Test Item Value Reference Range Interpretation Comments Calcium Lvl (test code = Calcium Lvl) 9.0 8.5-10.5 [facility] NorthwestHqzjhbnALNQMNJOUQ3596-25-02 18:46:00 Test Item Value Reference Range Interpretation Comments Basophils # (test code 0.1 See_Comment [Aut omated message] The = Basophils #) system which generated this result tra nsmitted reference range : <=0.2. The reference r mitra was not used to int erpret this result as normal/abnormal . [facility] CenterErfyhulOYOWBCGAGFOV5549-27-35 18:46:00 Test Item Value Reference Range Interpretation Comments Chloride Lvl (test code = Chloride Lvl) 106 95-109 [facility] NorthwestAuolikzFLSAOXUTYK4274-91-57 18:46:00 Test Item Value Reference Range Interpretation Comments PT (test code = PT) 11.2 s 12.0-14.7 [facility] CenterSjsffciZGAELQUHWFHL2720-69-74 18:46:00 Test Item Value Reference Range Interpretation Comments Creatinine Lvl (test code = Creatinine 0.9 0.5-1.4 Lvl) [facility] NorthwestYjfzwfzWERGUVVSKM8000-67-40 18:46:00 Test Item Value Reference Range Interpretation Comments INR (test code = INR) 0.82 0.85-1.17 [facility] NorthwestHovtoiaMMFSEGJYBT4773-00-64 18:46:00 Test Item Value Reference Range Interpretation Comments PTT (test code = PTT) 28.6 s 22.9-35.8 [facility] CenterKcvvonvLVAALNGJIPTR3316-82-12 18:46:00 Test Item Value Reference Range Interpretation Comments Potassium Lvl (test code = Potassium 4.2 3.5-5.1 Lvl) [facility] NorthwestHsfrjekWNIZKEJYMG9821-97-48 18:46:00 Test Item Value Reference Range Interpretation Comments MPV (test code = MPV) 8.1 7.4-10.4 [facility] NorthwestRzqcjdlNSJILPEVVM0603-36-40 18:46:00 Test Item Value Reference Range Interpretation Comments Platelet (test code = Platelet) 301 133-450 [facility] CenterQmwquecBMBCQXOEDRDS9430-81-13 18:46:00 Test Item Value Reference Range Interpretation Comments Sodium Lvl (test code = Sodium Lvl) 139 135-145 [facility] NorthwestMdezybxHYFNHPANLQ6793-40-56 18:46:00 Test Item Value Reference Range Interpretation Comments RDW (test code = RDW) 14.5 11.5-14.5 [facility] CenterQusyqrtBEJFNGKEEDJR6650-65-31 18:46:00 Test Item Value Reference Range Interpretation Comments CO2 (test code = CO2) 24 24-32 [facility] NorthwestErdpmctAHNPINCXWH6045-82-98 18:46:00 Test Item Value Reference Range Interpretation Comments RBC (test code = RBC) 4.84 4.70-6.10 [facility] CenterKrnluswOJGFOMQVHIFQ7994-01-23 18:46:00 Test Item Value Reference Range Interpretation Comments BUN (test code = BUN) 16 7-22 [facility] NorthwestOnntpvmAXMPFPAFAG0703-42-37 18:46:00 Test Item Value Reference Range Interpretation Comments Hgb (test code = Hgb) 14.4 14.0-18.0 [facility] CenterUmipspeRZVGRGATIZDJ2338-34-87 18:46:00 Test Item Value Reference Range Interpretation Comments Glucose Lvl (test code = Glucose Lvl) 141 70-99 [facility] NorthwestEbtdkqeGRPSWOQRTJ2760-58-93 18:46:00 Test Item Value Reference Range Interpretation Comments WBC (test code = WBC) 5.2 3.7-10.4 [facility] CenterGdgwekvXAUZFQAOYXJA5608-79-47 18:46:00 Test Item Value Reference Range Interpretation Comments Albumin Lvl (test code = Albumin Lvl) 3.6 3.5-5.0 [facility] NorthwestXkitvreIRYFIZNAWD5564-15-01 18:46:00 Test Item Value Reference Range Interpretation Comments MCH (test code = MCH) 29.8 pg 27.0-31.0 [facility] NorthwestAujrlgfJSFUACDSNI3531-32-24 18:46:00 Test Item Value Reference Range Interpretation Comments MCV (test code = MCV) 92.0 80.0-94.0 [facility] CenterMffencfWMCCOPSJEUTT6361-32-53 18:46:00 Test Item Value Reference Range Interpretation Comments Alk Phos (test code = Alk Phos) 65 39-136 [facility] NorthwestSahtexcDETRCBWQQJ8093-13-74 18:46:00 Test Item Value Reference Range Interpretation Comments Hct (test code = Hct) 44.5 42.0-54.0 [facility] CenterSwfyxlnCRGFWSNMVSPI2789-81-67 18:46:00 Test Item Value Reference Range Interpretation Comments Bili Total (test code = Bili Total) 0.3 0.2-1.3 [facility] NorthwestXxheuvjVVCETMYUQQ2507-63-47 18:46:00 Test Item Value Reference Range Interpretation Comments MCHC (test code = MCHC) 32.4 32.0-36.0 [facility] CenterMrxyzdqHXQBHAMMQHHW9803-01-28 18:46:00 Test Item Value Reference Range Interpretation Comments ALT (test code = ALT) 100 See_Comment [Auto mated message] The system which ge nerated this result transmit elizabeth reference range : <=65. The reference range was not used to interpr et this result as margaret l/abnormal. [facility] CampusExposfrKYSLPNUHSD6795-92-32 18:46:00 Test Item Value Reference Range Interpretation Comments [place]-Hep C Ab (test Negative *NA*(07/22/14 code = [place]-Hep C 1:46 PM) Ab) [facility] CenterAtibdtbUFNWNRORWHKP1945-48-98 18:46:00 Test Item Value Reference Range Interpretation Comments AST (test code = AST) 53 See_Comment [Auto mated message] The system which ge nerated this result transmit elizabeth reference range : <=37. The reference range was not used to interpr et this result as margaret l/abnormal. [facility] AND [id number] 18:46:00 Test Item Value Reference Range Interpretation Comments UA Urobilinogen (test code = UA <=1.0 mg/dL 0.1-1.0 Urobilinogen) [facility] AND [id number] 18:46:00 Test Item Value Reference Range Interpretation Comments UA Sq Epi (test code = UA Sq Epi) None [facility]zxtkhlBAKFRVLVSLFK7092-23-35 18:46:00 Test Item Value Reference Range Interpretation Comments Total Protein (test code = Total 6.9 6.4-8.4 Protein) [facility] AND [id number] 18:46:00 Test Item Value Reference Range Interpretation Comments UA Leuk Est (test Negative (07/22/14 1:46 code = UA Leuk Est) PM) [facility] AND [id number] 18:46:00 Test Item Value Reference Range Interpretation Comments UA Nitrite (test code Negative (07/22/14 1:46 = UA Nitrite) PM) [facility] NorthwestZyprgbhLMNBJKYBSN1465-89-91 18:46:00 Test Item Value Reference Range Interpretation Comments Eosinophils (test code = 4.2 See_Comment [A utomated message] The Eosinophils) system which ge nerated this result tra nsmitted reference range : <=4.0. The reference r mitra was not used to int erpret this result as normal/abnormal . [facility] AND [id number] 18:46:00 Test Item Value Reference Range Interpretation Comments UA Blood (test code = Negative (07/22/14 1:46 UA Blood) PM) [facility] AND [id number] 18:46:00 Test Item Value Reference Range Interpretation Comments UA Ketones (test code = UA Negative mg/dL Ketones) [facility] NorthwestGukroqpVTANBRJVIW3648-21-05 18:46:00 Test Item Value Reference Range Interpretation Comments Segs (test code = Segs) 56.4 45.0-75.0 [facility] AND [id number] 18:46:00 Test Item Value Reference Range Interpretation Comments UA Bili (test code = Negative *NA*(07/22/14 UA Bili) 1:46 PM) [facility] NorthwestJobzkdoOYKWNTFTNZ7659-83-64 18:46:00 Test Item Value Reference Range Interpretation Comments Monocytes (test code = Monocytes) 10.3 2.0-12.0 [facility] AND [id number] 18:46:00 Test Item Value Reference Range Interpretation Comments UA Bacteria (test code = UA Occasional /HPF Bacteria) [facility] AND [id number] 18:46:00 Test Item Value Reference Range Interpretation Comments UA RBC (test code = no gt See_Comment [Automa elizabeth message] The UA RBC) system which ge nerated this result transmit elizabeth reference range : <=2. The reference range was not used to interpr et this result as margaret l/abnormal. [facility] NorthwestYausovpBHMJLDGHCA9251-63-83 18:46:00 Test Item Value Reference Range Interpretation Comments Lymphocytes (test code = Lymphocytes) 28.0 20.0-40.0 [facility] AND [id number] 18:46:00 Test Item Value Reference Range Interpretation Comments UA WBC (test code = 1 See_Comment [Automa elizabeth message] The UA WBC) system which ge nerated this result transmit elizabeth reference range : <=5. The reference range was not used to interpr et this result as margaret l/abnormal. [facility]2015-06-09 18:46:00 Test Item Value Reference Range Interpretation Comments UA Glucose (test code = UA Glucose) 30 mg/dL [facility] NorthwestPqzuqmpTNRUFXMHCN7148-52-81 18:46:00 Test Item Value Reference Range Interpretation Comments Monocytes # (test code 0.5 See_Comment [Aut omated message] The = Monocytes #) system which generated this result tra nsmitted reference range : <=0.8. The reference r mitra was not used to int erpret this result as normal/abnormal . [facility]2015-06-09 18:46:00 Test Item Value Reference Range Interpretation Comments UA Protein (test code = UA Negative mg/dL Protein) [facility] NorthwestUacovzhBSKWIEZZXK0660-19-02 18:46:00 Test Item Value Reference Range Interpretation Comments Basophils (test code = 1.1 See_Comment [Aut omated message] The Basophils) system which ge nerated this result tra nsmitted reference range : <=1.0. The reference r mitra was not used to int erpret this result as normal/abnormal . [facility]2015-06-09 18:46:00 Test Item Value Reference Range Interpretation Comments UA pH (test code = UA pH) 6.5 5.0-8.0 [facility] AND [id number] 18:46:00 Test Item Value Reference Range Interpretation Comments UA Turbidity (test code = Clear (07/22/14 1:46 UA Turbidity) PM) [facility] CampusUnynctrUYVPWRXZZY2855-45-03 18:46:00 Test Item Value Reference Range Interpretation Comments Lymphocytes # (test code = Lymphocytes 1.5 1.0-5.5 #) [facility] AND [id number] 18:46:00 Test Item Value Reference Range Interpretation Comments UA Spec Grav (test code = UA Spec Grav) 1.010 [facility] AND [id number] 18:46:00 Test Item Value Reference Range Interpretation Comments UA Color (test code = Light Yellow UA Color) *NA*(07/22/14 1:46 PM) [facility] NorthwestSvpjqubFDGFHHJBFX1622-60-60 18:46:00 Test Item Value Reference Range Interpretation Comments Segs-Bands # (test code = Segs-Bands #) 2.9 1.5-8.1 [facility] CampusCHEM [id number] 18:46:00 Test Item Value Reference Range Interpretation Comments Magnesium Lvl (test code = Magnesium 1.8 1.8-2.4 Lvl) [facility] CenterDbmyuzjYPRHSYWMNAUK2204-44-58 18:46:00 Test Item Value Reference Range Interpretation Comments AGAP (test code = AGAP) 13.2 10.0-20.0 [facility] NorthwestYanfxxcCXYNEWRUPV4386-15-08 18:46:00 Test Item Value Reference Range Interpretation Comments Eosinophils # (test code 0.2 See_Comment [A utomated message] The = Eosinophils #) system whic h generated this result tra nsmitted reference range : <=0.5. The reference r mitra was not used to int erpret this result as normal/abnormal . [facility] CenterJxzqdngGIKNTMQWZSDS2657-24-50 18:46:00 Test Item Value Reference Range Interpretation Comments B/C Ratio (test code = B/C Ratio) 18 6- [facility] CenterWakeikdYEZXZPTTGKLE0320-86-33 18:46:00 Test Item Value Reference Range Interpretation Comments A/G Ratio (test code = A/G Ratio) 1.1 0.7-1.6 [facility] NorthwestRxmhfudIQDSHZRVSN2575-98-68 18:46:00 Test Item Value Reference Range Interpretation Comments Basophils # (test code 0.1 See_Comment [Aut omated message] The = Basophils #) system which generated this result tra nsmitted reference range : <=0.2. The reference r mitra was not used to int erpret this result as normal/abnormal . [facility] CenterWbifcbzMYZYQJBEUVZY0968-19-55 18:46:00 Test Item Value Reference Range Interpretation Comments Globulin (test code = Globulin) 3.3 2.0-4.0 [facility] NorthwestYbgckuoTVMMJENYJH1787-83-73 18:46:00 Test Item Value Reference Range Interpretation Comments PT (test code = PT) 11.2 s 12.0-14.7 [facility] CenterLlbgqwxEUDJFIXILILX4563-03-55 18:46:00 Test Item Value Reference Range Interpretation Comments eGFR (test code = eGFR) 99 [facility] CenterTvhsyzgZFMBTFLITGPG0023-01-45 18:46:00 Test Item Value Reference Range Interpretation Comments Calcium Lvl (test code = Calcium Lvl) 9.0 8.5-10.5 [facility] NorthwestGoitafiRZDZCYMXUC7760-00-47 18:46:00 Test Item Value Reference Range Interpretation Comments INR (test code = INR) 0.82 0.85-1.17 [facility] CenterEtcefsgKGEXQNTPGKRQ3070-82-15 18:46:00 Test Item Value Reference Range Interpretation Comments Chloride Lvl (test code = Chloride Lvl) 106 95-109 [facility] CenterIebiclaBANNTNGUYJEA2588-52-47 18:46:00 Test Item Value Reference Range Interpretation Comments Creatinine Lvl (test code = Creatinine 0.9 0.5-1.4 Lvl) [facility] NorthwestYwqgsjgRDFJJOJCTY5368-43-21 18:46:00 Test Item Value Reference Range Interpretation Comments PTT (test code = PTT) 28.6 s 22.9-35.8 [facility] CenterFfkfpnuVADJWYYDACKX5320-33-29 18:46:00 Test Item Value Reference Range Interpretation Comments Potassium Lvl (test code = Potassium 4.2 3.5-5.1 Lvl) [facility] CenterIltzpwrMAJIZXVWASVJ0438-18-38 18:46:00 Test Item Value Reference Range Interpretation Comments Sodium Lvl (test code = Sodium Lvl) 139 135-145 [facility] NorthwestLqjxvazDPCJAGRTWG6184-74-97 18:46:00 Test Item Value Reference Range Interpretation Comments MPV (test code = MPV) 8.1 7.4-10.4 [facility] CenterHnzhouiQLEUVSELWZQY7128-16-86 18:46:00 Test Item Value Reference Range Interpretation Comments CO2 (test code = CO2) 24 24-32 [facility] NorthwestAtvyeprPMRHHEIJLS1117-29-82 18:46:00 Test Item Value Reference Range Interpretation Comments Platelet (test code = Platelet) 301 133-450 [facility] CenterPqwwdptMYAWPIRURMSF8287-71-61 18:46:00 Test Item Value Reference Range Interpretation Comments BUN (test code = BUN) 16 7-22 [facility] CenterAhjdrrkNVZGHYAHDRPT7992-44-90 18:46:00 Test Item Value Reference Range Interpretation Comments Glucose Lvl (test code = Glucose Lvl) 141 70-99 [facility] NorthwestDqqnzsvLWHKFZLXJN4565-18-82 18:46:00 Test Item Value Reference Range Interpretation Comments RDW (test code = RDW) 14.5 11.5-14.5 [facility] CenterEesizraBOQULIXOOIJA5185-51-37 18:46:00 Test Item Value Reference Range Interpretation Comments Albumin Lvl (test code = Albumin Lvl) 3.6 3.5-5.0 [facility] NorthwestZumwlzpHUJBIHNQAE9361-42-18 18:46:00 Test Item Value Reference Range Interpretation Comments RBC (test code = RBC) 4.84 4.70-6.10 [facility] CenterGyizvtdWVRLPLTVCKFJ1122-43-28 18:46:00 Test Item Value Reference Range Interpretation Comments Alk Phos (test code = Alk Phos) 65 39-136 [facility] CenterBmwxeulPNZXSIJSYGRJ9569-97-72 18:46:00 Test Item Value Reference Range Interpretation Comments Bili Total (test code = Bili Total) 0.3 0.2-1.3 [facility] NorthwestMlavrrxLPLUASNFVB0990-05-22 18:46:00 Test Item Value Reference Range Interpretation Comments Hgb (test code = Hgb) 14.4 14.0-18.0 [facility] CenterKgwsorfSZFWJHPBMOKB0817-47-34 18:46:00 Test Item Value Reference Range Interpretation Comments ALT (test code = ALT) 100 See_Comment [Auto mated message] The system which ge nerated this result transmit elizabeth reference range : <=65. The reference range was not used to interpr et this result as margaret l/abnormal. [facility] CenterHftduexSFCTXBVFFYGU2315-99-95 18:46:00 Test Item Value Reference Range Interpretation Comments AST (test code = AST) 53 See_Comment [Auto mated message] The system which ge nerated this result transmit elizabeth reference range : <=37. The reference range was not used to interpr et this result as margaret l/abnormal. [facility] NorthwestVirsqirEKYFGXYXGM4189-44-94 18:46:00 Test Item Value Reference Range Interpretation Comments WBC (test code = WBC) 5.2 3.7-10.4 [facility] CenterJtluhazHOQQOGLZZXOP1932-12-95 18:46:00 Test Item Value Reference Range Interpretation Comments Total Protein (test code = Total 6.9 6.4-8.4 Protein) [facility] NorthwestPmjxdmiXSWOWONMNV3310-79-94 18:46:00 Test Item Value Reference Range Interpretation Comments Eosinophils (test code = 4.2 See_Comment [A utomated message] The Eosinophils) system which ge nerated this result tra nsmitted reference range : <=4.0. The reference r mitra was not used to int erpret this result as normal/abnormal . [facility] NorthwestEdyftvhJTGUBFLTYD9497-46-54 18:46:00 Test Item Value Reference Range Interpretation Comments MCH (test code = MCH) 29.8 pg 27.0-31.0 [facility] NorthwestUtgtftuGCCQAFSHIV7677-91-43 18:46:00 Test Item Value Reference Range Interpretation Comments Segs (test code = Segs) 56.4 45.0-75.0 [facility] NorthwestOxqugtiLOPXKOGQHL2175-35-42 18:46:00 Test Item Value Reference Range Interpretation Comments MCV (test code = MCV) 92.0 80.0-94.0 [facility] NorthwestBlziqogXWHOMSTYFG2666-82-15 18:46:00 Test Item Value Reference Range Interpretation Comments Monocytes (test code = Monocytes) 10.3 2.0-12.0 [facility] NorthwestCllouzgEGYOISTBIT9879-49-95 18:46:00 Test Item Value Reference Range Interpretation Comments Lymphocytes (test code = Lymphocytes) 28.0 20.0-40.0 [facility] NorthwestXourqwxEUTEEWZFFO6492-30-93 18:46:00 Test Item Value Reference Range Interpretation Comments Hct (test code = Hct) 44.5 42.0-54.0 [facility] NorthwestSggikrhCVTHNINBGL4142-67-92 18:46:00 Test Item Value Reference Range Interpretation Comments Monocytes # (test code 0.5 See_Comment [Aut omated message] The = Monocytes #) system which generated this result tra nsmitted reference range : <=0.8. The reference r mitra was not used to int erpret this result as normal/abnormal . [facility] NorthwestUiizsiaAAPUMMXIYO1296-16-14 18:46:00 Test Item Value Reference Range Interpretation Comments Basophils (test code = 1.1 See_Comment [Aut omated message] The Basophils) system which ge nerated this result tra nsmitted reference range : <=1.0. The reference r mitra was not used to int erpret this result as normal/abnormal . [facility] NorthwestQdqorwmFZBVYMAQMM4115-23-99 18:46:00 Test Item Value Reference Range Interpretation Comments MCHC (test code = MCHC) 32.4 32.0-36.0 [facility] NorthwestQlimmmfJSHZTWVUHL1462-12-02 18:46:00 Test Item Value Reference Range Interpretation Comments Lymphocytes # (test code = Lymphocytes 1.5 1.0-5.5 #) [facility] NorthwestFkvqhmtBRCCUQGXOC2170-23-20 18:46:00 Test Item Value Reference Range Interpretation Comments Segs-Bands # (test code = Segs-Bands #) 2.9 1.5-8.1 [facility]GbcrhnkZJJGFESHKN5304-20-36 18:46:00 Test Item Value Reference Range Interpretation Comments [place]-Hep C Ab (test Negative *NA*(07/22/14 code = [place]-Hep C 1:46 PM) Ab) [facility] NorthwestQgggoiuRRPEXCSJUQ2833-00-96 18:46:00 Test Item Value Reference Range Interpretation Comments Eosinophils # (test code 0.2 See_Comment [A utomated message] The = Eosinophils #) system whic h generated this result tra nsmitted reference range : <=0.5. The reference r mitra was not used to int erpret this result as normal/abnormal . [facility] AND [id number] 18:46:00 Test Item Value Reference Range Interpretation Comments UA Urobilinogen (test code = UA <=1.0 mg/dL 0.1-1.0 Urobilinogen) [facility] NorthwestHrnvufgIAQUCYIOBD7764-19-38 18:46:00 Test Item Value Reference Range Interpretation Comments Basophils # (test code 0.1 See_Comment [Aut omated message] The = Basophils #) system which generated this result tra nsmitted reference range : <=0.2. The reference r mitra was not used to int erpret this result as normal/abnormal . [facility] NorthwestSphsmfwICGSCVQRQD1421-20-66 18:46:00 Test Item Value Reference Range Interpretation Comments PT (test code = PT) 11.2 s 12.0-14.7 [facility]2015-06-09 18:46:00 Test Item Value Reference Range Interpretation Comments UA Sq Epi (test code = UA Sq Epi) None Seen [facility] NorthwestGqtgedjBEYARFBSVJ5084-80-24 18:46:00 Test Item Value Reference Range Interpretation Comments INR (test code = INR) 0.82 0.85-1.17 [facility] NorthwestLapmnugTTXDPXOLIH9972-34-00 18:46:00 Test Item Value Reference Range Interpretation Comments PTT (test code = PTT) 28.6 s 22.9-35.8 [facility]2015-06-09 18:46:00 Test Item Value Reference Range Interpretation Comments UA Leuk Est (test Negative (07/22/14 1:46 code = UA Leuk Est) PM) [facility] NorthwestYgtwiebQTSCEFCHDP5018-85-10 18:46:00 Test Item Value Reference Range Interpretation Comments MPV (test code = MPV) 8.1 7.4-10.4 [facility] NorthwestVkcnfaeQHMVSICBRY0714-47-99 18:46:00 Test Item Value Reference Range Interpretation Comments Platelet (test code = Platelet) 301 133-450 [facility] AND [id number] 18:46:00 Test Item Value Reference Range Interpretation Comments UA Nitrite (test code Negative (07/22/14 1:46 = UA Nitrite) PM) [facility] NorthwestZpjsxaaECBXCMXMTB5772-22-22 18:46:00 Test Item Value Reference Range Interpretation Comments RDW (test code = RDW) 14.5 11.5-14.5 [facility]2015-06-09 18:46:00 Test Item Value Reference Range Interpretation Comments UA Blood (test code = Negative (07/22/14 1:46 UA Blood) PM) [facility] NorthwestLwlfsjgXVRVVMOVYQ0607-18-72 18:46:00 Test Item Value Reference Range Interpretation Comments RBC (test code = RBC) 4.84 4.70-6.10 [facility] NorthwestPjvqlbnMFGLOXVGUR2763-52-86 18:46:00 Test Item Value Reference Range Interpretation Comments Hgb (test code = Hgb) 14.4 14.0-18.0 [facility] AND [id number] 18:46:00 Test Item Value Reference Range Interpretation Comments UA Ketones (test code = UA Negative mg/dL Ketones) [facility] NorthwestHfikupaFSANTYQTDR6009-48-83 18:46:00 Test Item Value Reference Range Interpretation Comments WBC (test code = WBC) 5.2 3.7-10.4 [facility] NorthwestJamckqhPCRMPVKTES3266-13-17 18:46:00 Test Item Value Reference Range Interpretation Comments MCH (test code = MCH) 29.8 pg 27.0-31.0 [facility] AND [id number] 18:46:00 Test Item Value Reference Range Interpretation Comments UA Bili (test code = Negative *NA*(07/22/14 UA Bili) 1:46 PM) [facility] NorthwestBrrpowvTDFTZYAQBF4958-90-20 18:46:00 Test Item Value Reference Range Interpretation Comments MCV (test code = MCV) 92.0 80.0-94.0 [facility] AND [id number] 18:46:00 Test Item Value Reference Range Interpretation Comments UA Bacteria (test code = UA Occasional /HPF Bacteria) [facility] NorthwestYpzksftDMNLSNIDGK8820-30-49 18:46:00 Test Item Value Reference Range Interpretation Comments Hct (test code = Hct) 44.5 42.0-54.0 [facility] NorthwestOschvzsCJNAEBESKG2294-04-12 18:46:00 Test Item Value Reference Range Interpretation Comments MCHC (test code = MCHC) 32.4 32.0-36.0 [facility] AND [id number] 18:46:00 Test Item Value Reference Range Interpretation Comments UA RBC (test code = no gt See_Comment [Automa elizabeth message] The UA RBC) system which ge nerated this result transmit elizabeth reference range : <=2. The reference range was not used to interpr et this result as margaret l/abnormal. [facility] CampusOewrrksOUMXEGRQXK1654-94-17 18:46:00 Test Item Value Reference Range Interpretation Comments [place]-Hep C Ab (test Negative *NA*(07/22/14 code = [place]-Hep C 1:46 PM) Ab) [facility] AND [id number] 18:46:00 Test Item Value Reference Range Interpretation Comments UA Urobilinogen (test code = UA <=1.0 mg/dL 0.1-1.0 Urobilinogen) [facility] AND [id number] 18:46:00 Test Item Value Reference Range Interpretation Comments UA WBC (test code = 1 See_Comment [Automa elizabeth message] The UA WBC) system which ge nerated this result transmit elizabeth reference range : <=5. The reference range was not used to interpr et this result as margaret l/abnormal. [facility] AND [id number] 18:46:00 Test Item Value Reference Range Interpretation Comments UA Sq Epi (test code = UA Sq Epi) None Seen [facility] AND [id number] 18:46:00 Test Item Value Reference Range Interpretation Comments UA Leuk Est (test Negative (07/22/14 1:46 code = UA Leuk Est) PM) [facility] AND [id number] 18:46:00 Test Item Value Reference Range Interpretation Comments UA Glucose (test code = UA Glucose) 30 mg/dL [facility] AND [id number] 18:46:00 Test Item Value Reference Range Interpretation Comments UA Nitrite (test code Negative (07/22/14 1:46 = UA Nitrite) PM) [facility] AND [id number] 18:46:00 Test Item Value Reference Range Interpretation Comments UA Protein (test code = UA Negative mg/dL Protein) [facility] AND [id number] 18:46:00 Test Item Value Reference Range Interpretation Comments UA Blood (test code = Negative (07/22/14 1:46 UA Blood) PM) [facility] AND [id number] 18:46:00 Test Item Value Reference Range Interpretation Comments UA Ketones (test code = UA Negative mg/dL Ketones) [facility] AND [id number] 18:46:00 Test Item Value Reference Range Interpretation Comments UA pH (test code = UA pH) 6.5 5.0-8.0 [facility] AND [id number] 18:46:00 Test Item Value Reference Range Interpretation Comments UA Bili (test code = Negative *NA*(07/22/14 UA Bili) 1:46 PM) [facility] AND [id number] 18:46:00 Test Item Value Reference Range Interpretation Comments UA Bacteria (test code = UA Occasional /HPF Bacteria) [facility] AND [id number] 18:46:00 Test Item Value Reference Range Interpretation Comments UA Turbidity (test code = Clear (07/22/14 1:46 UA Turbidity) PM) [facility] AND [id number] 18:46:00 Test Item Value Reference Range Interpretation Comments UA RBC (test code = no gt See_Comment [Automa elizabeth message] The UA RBC) system which ge nerated this result transmit elizabeth reference range : <=2. The reference range was not used to interpr et this result as margaret l/abnormal. [facility] AND [id number] 18:46:00 Test Item Value Reference Range Interpretation Comments UA WBC (test code = 1 See_Comment [Automa elizabeth message] The UA WBC) system which ge nerated this result transmit elizabeth reference range : <=5. The reference range was not used to interpr et this result as margaret l/abnormal. [facility] AND [id number] 18:46:00 Test Item Value Reference Range Interpretation Comments UA Spec Grav (test code = UA Spec Grav) 1.010 [facility] AND [id number] 18:46:00 Test Item Value Reference Range Interpretation Comments UA Glucose (test code = UA Glucose) 30 mg/dL [facility] AND [id number] 18:46:00 Test Item Value Reference Range Interpretation Comments UA Color (test code = Light Yellow UA Color) *NA*(07/22/14 1:46 PM) [facility] AND [id number] 18:46:00 Test Item Value Reference Range Interpretation Comments UA Protein (test code = UA Negative mg/dL Protein) [facility] AND [id number] 18:46:00 Test Item Value Reference Range Interpretation Comments UA pH (test code = UA pH) 6.5 5.0-8.0 [facility] AND [id number] 18:46:00 Test Item Value Reference Range Interpretation Comments UA Turbidity (test code = Clear (07/22/14 1:46 UA Turbidity) PM) [facility] [id number] 18:46:00 Test Item Value Reference Range Interpretation Comments UA Spec Grav (test code = UA Spec Grav) 1.010 [facility] Mary AND [id number] 18:46:00 Test Item Value Reference Range Interpretation Comments UA Color (test code = Light Yellow UA Color) *NA*(07/22/14 1:46 PM) [facility] CrissannCHEM [id number] 18:46:00 Test Item Value Reference Range Interpretation Comments Magnesium Lvl (test code = Magnesium 1.8 1.8-2.4 Lvl) [facility]HrrejxvCIIDRBEQDQDF5238-15-91 18:46:00 Test Item Value Reference Range Interpretation Comments AGAP (test code = AGAP) 13.2 10.0-20.0 [facility] CenterBdrfhjqUGMPBMQMGDJK4735-69-15 18:46:00 Test Item Value Reference Range Interpretation Comments B/C Ratio (test code = B/C Ratio) 18 6-25 [facility] CenterYglaswrIREBVSNWZPNI8465-70-05 18:46:00 Test Item Value Reference Range Interpretation Comments A/G Ratio (test code = A/G Ratio) 1.1 0.7-1.6 [facility] CenterXyeulovDABXZABZZLXJ9454-46-70 18:46:00 Test Item Value Reference Range Interpretation Comments Globulin (test code = Globulin) 3.3 2.0-4.0 [facility] CenterQucfsdnQSLMONBQIJKY6910-83-60 18:46:00 Test Item Value Reference Range Interpretation Comments eGFR (test code = eGFR) 99 [facility] CenterUevbsjwIMASEFDYCYPT6743-96-38 18:46:00 Test Item Value Reference Range Interpretation Comments Calcium Lvl (test code = Calcium Lvl) 9.0 8.5-10.5 [facility] CenterFpghkmrTCPMWXIPGMEA6977-30-91 18:46:00 Test Item Value Reference Range Interpretation Comments Chloride Lvl (test code = Chloride Lvl) 106 95-109 [facility] CenterDbrngcqTAMOAZJJALEN1098-98-90 18:46:00 Test Item Value Reference Range Interpretation Comments Creatinine Lvl (test code = Creatinine 0.9 0.5-1.4 Lvl) [facility] CenterQoteqrhDDWJIGKVWIIU0149-68-14 18:46:00 Test Item Value Reference Range Interpretation Comments Potassium Lvl (test code = Potassium 4.2 3.5-5.1 Lvl) [facility] CenterZbcndptBIRQGZGGZEQM2026-76-13 18:46:00 Test Item Value Reference Range Interpretation Comments Sodium Lvl (test code = Sodium Lvl) 139 135-145 [facility] CenterWnitfncWMOJOUHAEFCC6116-44-18 18:46:00 Test Item Value Reference Range Interpretation Comments CO2 (test code = CO2) 24 24-32 [facility] CenterTmwuwbiADCIJOMNHOEU8810-46-04 18:46:00 Test Item Value Reference Range Interpretation Comments BUN (test code = BUN) 16 7-22 [facility] CenterHtmtmecHPVFQNLDPSPB5340-94-82 18:46:00 Test Item Value Reference Range Interpretation Comments Glucose Lvl (test code = Glucose Lvl) 141 70-99 [facility] CenterWknfsujRAFWWDXQAJIP0322-05-68 18:46:00 Test Item Value Reference Range Interpretation Comments Albumin Lvl (test code = Albumin Lvl) 3.6 3.5-5.0 [facility] CenterJxhxsfoVNDJHVOTPAHL2975-23-27 18:46:00 Test Item Value Reference Range Interpretation Comments Alk Phos (test code = Alk Phos) 65 39-136 [facility] CenterDbgqhdoYKQERBBPOMVI6760-10-63 18:46:00 Test Item Value Reference Range Interpretation Comments Bili Total (test code = Bili Total) 0.3 0.2-1.3 [facility] CenterKyrszdgUBOJLJNSSOJD1038-82-30 18:46:00 Test Item Value Reference Range Interpretation Comments ALT (test code = ALT) 100 See_Comment [Auto mated message] The system which ge nerated this result transmit elizabeth reference range : <=65. The reference range was not used to interpr et this result as margaret l/abnormal. [facility] CenterVypmgizITAVMWLOVOOR7032-32-26 18:46:00 Test Item Value Reference Range Interpretation Comments AST (test code = AST) 53 See_Comment [Auto mated message] The system which ge nerated this result transmit elizabeth reference range : <=37. The reference range was not used to interpr et this result as margaret l/abnormal. [facility] CenterWuuumqmBWWHDZRKFLYV8317-95-25 18:46:00 Test Item Value Reference Range Interpretation Comments Total Protein (test code = Total 6.9 6.4-8.4 Protein) [facility] NorthwestDibsfgbHKCEKZKWQC5072-62-41 18:46:00 Test Item Value Reference Range Interpretation Comments Eosinophils (test code = 4.2 See_Comment [A utomated message] The Eosinophils) system which ge nerated this result tra nsmitted reference range : <=4.0. The reference r mitra was not used to int erpret this result as normal/abnormal . [facility] NorthwestUlxsyorDTEQFWZYUM6747-61-45 18:46:00 Test Item Value Reference Range Interpretation Comments Segs (test code = Segs) 56.4 45.0-75.0 [facility] NorthwestSxhzeasBPHGWAVRFT0155-74-59 18:46:00 Test Item Value Reference Range Interpretation Comments Monocytes (test code = Monocytes) 10.3 2.0-12.0 [facility] NorthwestSqhdcpjSGCVMUVVAS6495-42-74 18:46:00 Test Item Value Reference Range Interpretation Comments Lymphocytes (test code = Lymphocytes) 28.0 20.0-40.0 [facility] NorthwestWrvihcqFMEZDXCKRJ3510-21-80 18:46:00 Test Item Value Reference Range Interpretation Comments Monocytes # (test code 0.5 See_Comment [Aut omated message] The = Monocytes #) system which generated this result tra nsmitted reference range : <=0.8. The reference r mitra was not used to int erpret this result as normal/abnormal . [facility] NorthwestAscmijsWOSZQYQOIZ8767-16-43 18:46:00 Test Item Value Reference Range Interpretation Comments Basophils (test code = 1.1 See_Comment [Aut omated message] The Basophils) system which ge nerated this result tra nsmitted reference range : <=1.0. The reference r mitra was not used to int erpret this result as normal/abnormal . [facility] NorthwestNrnibngPSJIJEYDWW7988-20-45 18:46:00 Test Item Value Reference Range Interpretation Comments Lymphocytes # (test code = Lymphocytes 1.5 1.0-5.5 #) [facility] NorthwestFghernzHCAVZIVSCK1523-64-93 18:46:00 Test Item Value Reference Range Interpretation Comments Segs-Bands # (test code = Segs-Bands #) 2.9 1.5-8.1 [facility] NorthwestDtounlvBOKGPCICPK6361-15-04 18:46:00 Test Item Value Reference Range Interpretation Comments Eosinophils # (test code 0.2 See_Comment [A utomated message] The = Eosinophils #) system whic h generated this result tra nsmitted reference range : <=0.5. The reference r mitra was not used to int erpret this result as normal/abnormal . [facility] NorthwestGcrrixdUXRSYRZZBN9220-62-78 18:46:00 Test Item Value Reference Range Interpretation Comments Basophils # (test code 0.1 See_Comment [Aut omated message] The = Basophils #) system which generated this result tra nsmitted reference range : <=0.2. The reference r mitra was not used to int erpret this result as normal/abnormal . [facility] NorthwestLrouzmsNEVCPUZVNM1868-31-65 18:46:00 Test Item Value Reference Range Interpretation Comments PT (test code = PT) 11.2 s 12.0-14.7 [facility] NorthwestSdbdpeoKICQGSOMIP7856-52-79 18:46:00 Test Item Value Reference Range Interpretation Comments INR (test code = INR) 0.82 0.85-1.17 [facility] NorthwestCrlbgorCCTKOLHGLM5071-42-36 18:46:00 Test Item Value Reference Range Interpretation Comments PTT (test code = PTT) 28.6 s 22.9-35.8 [facility] NorthwestSpjveoxOHEUMSFSCH0596-91-61 18:46:00 Test Item Value Reference Range Interpretation Comments MPV (test code = MPV) 8.1 7.4-10.4 [facility] NorthwestJrchklgKBIZIOXOPC6909-51-68 18:46:00 Test Item Value Reference Range Interpretation Comments Platelet (test code = Platelet) 301 133-450 [facility] NorthwestAhdhzadHHHKKBHKHY3702-07-44 18:46:00 Test Item Value Reference Range Interpretation Comments RDW (test code = RDW) 14.5 11.5-14.5 [facility] NorthwestPaxxqegTGTWRQDKXF2901-38-97 18:46:00 Test Item Value Reference Range Interpretation Comments RBC (test code = RBC) 4.84 4.70-6.10 [facility] NorthwestOihsktdASUKRTQBEB9057-04-44 18:46:00 Test Item Value Reference Range Interpretation Comments Hgb (test code = Hgb) 14.4 14.0-18.0 [facility] NorthwestAluetedABVGWXBWJO0097-43-54 18:46:00 Test Item Value Reference Range Interpretation Comments WBC (test code = WBC) 5.2 3.7-10.4 [facility] NorthwestNnekltmMRFZBZPYFG1701-83-36 18:46:00 Test Item Value Reference Range Interpretation Comments MCH (test code = MCH) 29.8 pg 27.0-31.0 [facility]UNPBNWTAL9909-[facility] 18:46:00 Test Item Value Reference Range Interpretation Comments MCV (test code = MCV) 92.0 80.0-94.0 [facility]DyxajzbRSSHADZTPA2073-61-49 18:46:00 Test Item Value Reference Range Interpretation Comments Hct (test code = Hct) 44.5 42.0-54.0 [facility] CampusJihmkxeNRQEXUACYP0744-02-10 18:46:00 Test Item Value Reference Range Interpretation Comments MCHC (test code = MCHC) 32.4 32.0-36.0 [facility] CampusVkjlbvjXMNXONUAWO5993-80-00 18:46:00 Test Item Value Reference Range Interpretation Comments [place]-Hep C Ab (test Negative *NA*(07/22/14 code = [place]-Hep C 1:46 PM) Ab) [facility] AND [id number] 18:46:00 Test Item Value Reference Range Interpretation Comments UA Urobilinogen (test code = UA <=1.0 mg/dL 0.1-1.0 Urobilinogen) [facility] AND [id number] 18:46:00 Test Item Value Reference Range Interpretation Comments UA Sq Epi (test code = UA Sq Epi) None Seen [facility] AND [id number] 18:46:00 Test Item Value Reference Range Interpretation Comments UA Leuk Est (test Negative (07/22/14 1:46 code = UA Leuk Est) PM) [facility] AND [id number] 18:46:00 Test Item Value Reference Range Interpretation Comments UA Nitrite (test code Negative (07/22/14 1:46 = UA Nitrite) PM) [facility] AND [id number] 18:46:00 Test Item Value Reference Range Interpretation Comments UA Blood (test code = Negative (07/22/14 1:46 UA Blood) PM) [facility] AND [id number] 18:46:00 Test Item Value Reference Range Interpretation Comments UA Ketones (test code = UA Negative mg/dL Ketones) [facility] AND [id number] 18:46:00 Test Item Value Reference Range Interpretation Comments UA Bili (test code = Negative *NA*(07/22/14 UA Bili) 1:46 PM) [facility] AND [id number] 18:46:00 Test Item Value Reference Range Interpretation Comments UA Bacteria (test code = UA Occasional /HPF Bacteria) [facility] AND [id number] 18:46:00 Test Item Value Reference Range Interpretation Comments UA RBC (test code = no gt See_Comment [Automa elizabeth message] The UA RBC) system which ge nerated this result transmit elizabeth reference range : <=2. The reference range was not used to interpr et this result as margaret l/abnormal. [facility] AND [id number] 18:46:00 Test Item Value Reference Range Interpretation Comments UA WBC (test code = 1 See_Comment [Automa elizabeth message] The UA WBC) system which ge nerated this result transmit elizabeth reference range : <=5. The reference range was not used to interpr et this result as margaret l/abnormal. [facility] AND [id number] 18:46:00 Test Item Value Reference Range Interpretation Comments UA Glucose (test code = UA Glucose) 30 mg/dL [facility] AND [id number] 18:46:00 Test Item Value Reference Range Interpretation Comments UA Protein (test code = UA Negative mg/dL Protein) [facility] AND [id number] 18:46:00 Test Item Value Reference Range Interpretation Comments UA pH (test code = UA pH) 6.5 5.0-8.0 [facility] AND [id number] 18:46:00 Test Item Value Reference Range Interpretation Comments UA Turbidity (test code = Clear (07/22/14 1:46 UA Turbidity) PM) [facility] AND [id number] 18:46:00 Test Item Value Reference Range Interpretation Comments UA Spec Grav (test code = UA Spec Grav) 1.010 [facility] AND [id number] 18:46:00 Test Item Value Reference Range Interpretation Comments UA Color (test code = Light Yellow UA Color) *NA*(07/22/14 1:46 PM) [facility] [id number] 18:46:00 Test Item Value Reference Range Interpretation Comments Magnesium Lvl (test code = Magnesium 1.8 1.8-2.4 Lvl) [facility] CenterOxlnixdCWSVZMGXLFPU6150-11-23 18:46:00 Test Item Value Reference Range Interpretation Comments AGAP (test code = AGAP) 13.2 10.0-20.0 [facility] CenterMywozscPOQYYGOPDCPM8778-17-14 18:46:00 Test Item Value Reference Range Interpretation Comments B/C Ratio (test code = B/C Ratio) 18 6-25 [facility] CenterVwbdagiGXWPOHCTKVSE0430-26-19 18:46:00 Test Item Value Reference Range Interpretation Comments A/G Ratio (test code = A/G Ratio) 1.1 0.7-1.6 [facility] CenterJhjitxjYENUWMJGRLKC8325-49-01 18:46:00 Test Item Value Reference Range Interpretation Comments Globulin (test code = Globulin) 3.3 2.0-4.0 [facility] CenterCuhysslXWCEPBQESRZK4186-30-76 18:46:00 Test Item Value Reference Range Interpretation Comments eGFR (test code = eGFR) 99 [facility] CenterUixrltpIPTUPULCBAJR6016-95-30 18:46:00 Test Item Value Reference Range Interpretation Comments Calcium Lvl (test code = Calcium Lvl) 9.0 8.5-10.5 [facility] CenterGidlbfvBMQPGQZXOQAQ7201-25-53 18:46:00 Test Item Value Reference Range Interpretation Comments Chloride Lvl (test code = Chloride Lvl) 106 95-109 [facility] CenterWbglagbMEAHMVMZRYBG2179-07-07 18:46:00 Test Item Value Reference Range Interpretation Comments Creatinine Lvl (test code = Creatinine 0.9 0.5-1.4 Lvl) [facility] CenterCulfjotISYKHQEOYRVV0371-34-10 18:46:00 Test Item Value Reference Range Interpretation Comments Potassium Lvl (test code = Potassium 4.2 3.5-5.1 Lvl) [facility] CenterXsbfvvcVJVLKEIHSTWV7778-62-66 18:46:00 Test Item Value Reference Range Interpretation Comments Sodium Lvl (test code = Sodium Lvl) 139 135-145 [facility] CenterWoolxnsYZQEVVUJSIAN5864-15-83 18:46:00 Test Item Value Reference Range Interpretation Comments CO2 (test code = CO2) 24 24-32 [facility] CenterPzopbacQUYLEFSYCHHN1472-87-65 18:46:00 Test Item Value Reference Range Interpretation Comments BUN (test code = BUN) 16 7-22 [facility] CenterPgigdirXNPSGTCYHNSE9551-18-46 18:46:00 Test Item Value Reference Range Interpretation Comments Glucose Lvl (test code = Glucose Lvl) 141 70-99 [facility] CenterGgdonzbABQROBBNQNVG6644-14-96 18:46:00 Test Item Value Reference Range Interpretation Comments Albumin Lvl (test code = Albumin Lvl) 3.6 3.5-5.0 [facility] CenterPghootiYUXLGNLCDTSD8841-25-58 18:46:00 Test Item Value Reference Range Interpretation Comments Alk Phos (test code = Alk Phos) 65 39-136 [facility] CenterMnbnlitIVYLKVRFLLXV7696-93-21 18:46:00 Test Item Value Reference Range Interpretation Comments Bili Total (test code = Bili Total) 0.3 0.2-1.3 [facility] CenterRijkxavIRXKVRNUBLXI4816-64-37 18:46:00 Test Item Value Reference Range Interpretation Comments ALT (test code = ALT) 100 See_Comment [Auto mated message] The system which ge nerated this result transmit elizabeth reference range : <=65. The reference range was not used to interpr et this result as margaret l/abnormal. [facility] CenterEgguskqLNGNILVKZUPB3610-92-00 18:46:00 Test Item Value Reference Range Interpretation Comments AST (test code = AST) 53 See_Comment [Auto mated message] The system which ge nerated this result transmit elizabeth reference range : <=37. The reference range was not used to interpr et this result as margaret l/abnormal. [facility] CenterZavaielLFGQKDTHYATE5255-05-92 18:46:00 Test Item Value Reference Range Interpretation Comments Total Protein (test code = Total 6.9 6.4-8.4 Protein) [facility] NorthwestAtkzdliNTAYMQCUQH2621-12-15 18:46:00 Test Item Value Reference Range Interpretation Comments Eosinophils (test code = 4.2 See_Comment [A utomated message] The Eosinophils) system which ge nerated this result tra nsmitted reference range : <=4.0. The reference r mitra was not used to int erpret this result as normal/abnormal . [facility] NorthwestCssqmvsGDUPTBKUJC0284-37-61 18:46:00 Test Item Value Reference Range Interpretation Comments Segs (test code = Segs) 56.4 45.0-75.0 [facility] NorthwestRhxcbsqOINKMSSUCD5822-27-12 18:46:00 Test Item Value Reference Range Interpretation Comments Monocytes (test code = Monocytes) 10.3 2.0-12.0 [facility] NorthwestJapomokPEFQSMZUDF9584-09-74 18:46:00 Test Item Value Reference Range Interpretation Comments Lymphocytes (test code = Lymphocytes) 28.0 20.0-40.0 [facility] NorthwestGmibmyfGQTHSZOYDO4142-09-15 18:46:00 Test Item Value Reference Range Interpretation Comments Monocytes # (test code 0.5 See_Comment [Aut omated message] The = Monocytes #) system which generated this result tra nsmitted reference range : <=0.8. The reference r mitra was not used to int erpret this result as normal/abnormal . [facility] NorthwestUkmeogcVHMIYHIBLH9543-07-47 18:46:00 Test Item Value Reference Range Interpretation Comments Basophils (test code = 1.1 See_Comment [Aut omated message] The Basophils) system which ge nerated this result tra nsmitted reference range : <=1.0. The reference r mitra was not used to int erpret this result as normal/abnormal . [facility] NorthwestZpqaumbRPIWKTVGDX8242-84-53 18:46:00 Test Item Value Reference Range Interpretation Comments Lymphocytes # (test code = Lymphocytes 1.5 1.0-5.5 #) [facility] NorthwestVvxmjetGRWLZHJLGE0102-95-07 18:46:00 Test Item Value Reference Range Interpretation Comments Segs-Bands # (test code = Segs-Bands #) 2.9 1.5-8.1 [facility] NorthwestEsztwhiYWRBTFTTUR4060-32-95 18:46:00 Test Item Value Reference Range Interpretation Comments Eosinophils # (test code 0.2 See_Comment [A utomated message] The = Eosinophils #) system ic generated this result tra nsmitted reference range : <=0.5. The reference r mitra was not used to int erpret this result as normal/abnormal . [facility] NorthwestHineaouGCJMQWYVMP0783-93-74 18:46:00 Test Item Value Reference Range Interpretation Comments Basophils # (test code 0.1 See_Comment [Aut omated message] The = Basophils #) system which generated this result tra nsmitted reference range : <=0.2. The reference r mitra was not used to int erpret this result as normal/abnormal . [facility] NorthwestXzvexanRVCESKEYBL2825-83-81 18:46:00 Test Item Value Reference Range Interpretation Comments PT (test code = PT) 11.2 s 12.0-14.7 [facility] NorthwestDisbtyrNISBCDSLAY4885-04-18 18:46:00 Test Item Value Reference Range Interpretation Comments INR (test code = INR) 0.82 0.85-1.17 [facility] NorthwestGnbgmrsLMDPDUCHBA7149-11-39 18:46:00 Test Item Value Reference Range Interpretation Comments PTT (test code = PTT) 28.6 s 22.9-35.8 [facility] NorthwestJjloyfaTATFVBOZPS0876-92-41 18:46:00 Test Item Value Reference Range Interpretation Comments MPV (test code = MPV) 8.1 7.4-10.4 [facility] NorthwestVnerlmpDAKKPMQFFY9970-27-64 18:46:00 Test Item Value Reference Range Interpretation Comments Platelet (test code = Platelet) 301 133-450 [facility] NorthwestMfdmafjXDNBRUYNCP6705-89-71 18:46:00 Test Item Value Reference Range Interpretation Comments RDW (test code = RDW) 14.5 11.5-14.5 [facility] NorthwestUihsnwpARNWCLUZOB4933-82-13 18:46:00 Test Item Value Reference Range Interpretation Comments RBC (test code = RBC) 4.84 4.70-6.10 [facility] NorthwestWckatveVEGFBEBBBU5566-96-92 18:46:00 Test Item Value Reference Range Interpretation Comments Hgb (test code = Hgb) 14.4 14.0-18.0 [facility] NorthwestGakfxclUMBHHNONUB4151-10-96 18:46:00 Test Item Value Reference Range Interpretation Comments WBC (test code = WBC) 5.2 3.7-10.4 [facility] NorthwestPropdnoBSNMUHLYUV3705-09-19 18:46:00 Test Item Value Reference Range Interpretation Comments MCH (test code = MCH) 29.8 pg 27.0-31.0 [facility] NorthwestLrjodosLOLGNUQXRO5016-34-94 18:46:00 Test Item Value Reference Range Interpretation Comments MCV (test code = MCV) 92.0 80.0-94.0 [facility] NorthwestIjrutmmATFLUZGUTO5410-08-12 18:46:00 Test Item Value Reference Range Interpretation Comments Hct (test code = Hct) 44.5 42.0-54.0 [facility] NorthwestTkpnecjIZBDGJBIFO7382-81-81 18:46:00 Test Item Value Reference Range Interpretation Comments MCHC (test code = MCHC) 32.4 32.0-36.0 [facility]takgdYTIZDWLLPF1420-29-03 18:46:00 Test Item Value Reference Range Interpretation Comments [place]-Hep C Ab (test Negative *NA*(07/22/14 code = [place]-Hep C 1:46 PM) Ab) [facility] AND [id number] 18:46:00 Test Item Value Reference Range Interpretation Comments UA Urobilinogen (test code = UA <=1.0 mg/dL 0.1-1.0 Urobilinogen) [facility] AND [id number] 18:46:00 Test Item Value Reference Range Interpretation Comments UA Sq Epi (test code = UA Sq Epi) None Seen [facility] AND [id number] 18:46:00 Test Item Value Reference Range Interpretation Comments UA Leuk Est (test Negative (07/22/14 1:46 code = UA Leuk Est) PM) [facility] AND [id number] 18:46:00 Test Item Value Reference Range Interpretation Comments UA Nitrite (test code Negative (07/22/14 1:46 = UA Nitrite) PM) [facility] AND [id number] 18:46:00 Test Item Value Reference Range Interpretation Comments UA Blood (test code = Negative (07/22/14 1:46 UA Blood) PM) [facility] AND [id number] 18:46:00 Test Item Value Reference Range Interpretation Comments UA Ketones (test code = UA Negative mg/dL Ketones) [facility] AND [id number] 18:46:00 Test Item Value Reference Range Interpretation Comments UA Bili (test code = Negative *NA*(07/22/14 UA Bili) 1:46 PM) [facility] AND [id number] 18:46:00 Test Item Value Reference Range Interpretation Comments UA Bacteria (test code = UA Occasional /HPF Bacteria) [facility] AND [id number] 18:46:00 Test Item Value Reference Range Interpretation Comments UA RBC (test code = no gt See_Comment [Automa elizabeth message] The UA RBC) system which ge nerated this result transmit elizabeth reference range : <=2. The reference range was not used to interpr et this result as margaret l/abnormal. [facility] AND [id number] 18:46:00 Test Item Value Reference Range Interpretation Comments UA WBC (test code = 1 See_Comment [Automa elizabeth message] The UA WBC) system which ge nerated this result transmit elizabeth reference range : <=5. The reference range was not used to interpr et this result as margaret l/abnormal. [facility] AND [id number] 18:46:00 Test Item Value Reference Range Interpretation Comments UA Glucose (test code = UA Glucose) 30 mg/dL [facility] AND [id number] 18:46:00 Test Item Value Reference Range Interpretation Comments UA Protein (test code = UA Negative mg/dL Protein) [facility] AND [id number] 18:46:00 Test Item Value Reference Range Interpretation Comments UA pH (test code = UA pH) 6.5 5.0-8.0 [facility] AND [id number] 18:46:00 Test Item Value Reference Range Interpretation Comments UA Turbidity (test code = Clear (07/22/14 1:46 UA Turbidity) PM) [facility] AND [id number] 18:46:00 Test Item Value Reference Range Interpretation Comments UA Spec Grav (test code = UA Spec Grav) 1.010 [facility] AND [id number] 18:46:00 Test Item Value Reference Range Interpretation Comments UA Color (test code = Light Yellow UA Color) *NA*(07/22/14 1:46 PM) [facility] [id number] 18:46:00 Test Item Value Reference Range Interpretation Comments Magnesium Lvl (test code = Magnesium 1.8 1.8-2.4 Lvl) [facility]GfmemoqPKENBFDCOXTU4459-62-79 18:46:00 Test Item Value Reference Range Interpretation Comments AGAP (test code = AGAP) 13.2 10.0-20.0 [facility]ervilleIipicfzQYEWMUMQDMBI8762-86-19 18:46:00 Test Item Value Reference Range Interpretation Comments B/C Ratio (test code = B/C Ratio) 18 6-25 [facility]ervilleRdwfypkIDMGVWRMCOEU5267-32-02 18:46:00 Test Item Value Reference Range Interpretation Comments A/G Ratio (test code = A/G Ratio) 1.1 0.7-1.6 [facility] CenterHivjdnnEIIRSRFFNDLE3345-74-63 18:46:00 Test Item Value Reference Range Interpretation Comments Globulin (test code = Globulin) 3.3 2.0-4.0 [facility] CenterTvjoucuNJKLIPTSRXAW0359-22-55 18:46:00 Test Item Value Reference Range Interpretation Comments eGFR (test code = eGFR) 99 [facility] CenterRfpjvdjUWLRLORSDKNS3911-47-72 18:46:00 Test Item Value Reference Range Interpretation Comments Calcium Lvl (test code = Calcium Lvl) 9.0 8.5-10.5 [facility] CenterDvpdtkePTVDXIQOCPPP7783-84-57 18:46:00 Test Item Value Reference Range Interpretation Comments Chloride Lvl (test code = Chloride Lvl) 106 95-109 [facility] CenterQvixwvqYWNJHKIBYRSR8263-65-06 18:46:00 Test Item Value Reference Range Interpretation Comments Creatinine Lvl (test code = Creatinine 0.9 0.5-1.4 Lvl) [facility] CenterDbenwqbQHLYNIQAXMRN6193-62-18 18:46:00 Test Item Value Reference Range Interpretation Comments Potassium Lvl (test code = Potassium 4.2 3.5-5.1 Lvl) [facility] CenterHjzbobaNNGXILYNAKQG7788-54-23 18:46:00 Test Item Value Reference Range Interpretation Comments Sodium Lvl (test code = Sodium Lvl) 139 135-145 [facility] CenterYzinzfwLOYCGOBGEDPT1913-17-27 18:46:00 Test Item Value Reference Range Interpretation Comments CO2 (test code = CO2) 24 24-32 [facility] CenterZasbeygBNSIGZGRUHHQ7326-90-12 18:46:00 Test Item Value Reference Range Interpretation Comments BUN (test code = BUN) 16 7-22 [facility] CenterBioeqjxNQYTWUECFATV6301-68-82 18:46:00 Test Item Value Reference Range Interpretation Comments Glucose Lvl (test code = Glucose Lvl) 141 70-99 [facility] CenterIrdnhiuKCHRZGRQYIGR4013-69-31 18:46:00 Test Item Value Reference Range Interpretation Comments Albumin Lvl (test code = Albumin Lvl) 3.6 3.5-5.0 [facility] CenterSuduieaHYPDFHFIJGJS0361-26-37 18:46:00 Test Item Value Reference Range Interpretation Comments Alk Phos (test code = Alk Phos) 65 39-136 [facility] CenterAdnduspLJVRJZMGPBWH9698-65-04 18:46:00 Test Item Value Reference Range Interpretation Comments Bili Total (test code = Bili Total) 0.3 0.2-1.3 [facility] CenterNdptxuwYRCFERTNGRTM5395-66-69 18:46:00 Test Item Value Reference Range Interpretation Comments ALT (test code = ALT) 100 See_Comment [Auto mated message] The system which ge nerated this result transmit elizabeth reference range : <=65. The reference range was not used to interpr et this result as margaret l/abnormal. [facility] CenterVnkvuhgPHTUQOASFFWK9387-83-18 18:46:00 Test Item Value Reference Range Interpretation Comments AST (test code = AST) 53 See_Comment [Auto mated message] The system which ge nerated this result transmit elizabteh reference range : <=37. The reference range was not used to interpr et this result as margaret l/abnormal. [facility] CenterQrjqmqbFKCAEORCNDSM1093-15-82 18:46:00 Test Item Value Reference Range Interpretation Comments Total Protein (test code = Total 6.9 6.4-8.4 Protein) [facility] NorthwestSjtxfwoEHOUVBMREH2775-53-94 18:46:00 Test Item Value Reference Range Interpretation Comments Eosinophils (test code = 4.2 See_Comment [A utomated message] The Eosinophils) system which ge nerated this result tra nsmitted reference range : <=4.0. The reference r mitra was not used to int erpret this result as normal/abnormal . [facility] NorthwestFmnpmwwHECWWQALHB4653-34-57 18:46:00 Test Item Value Reference Range Interpretation Comments Segs (test code = Segs) 56.4 45.0-75.0 [facility] NorthwestSlvikyqRQQTUGLKRA2455-98-51 18:46:00 Test Item Value Reference Range Interpretation Comments Monocytes (test code = Monocytes) 10.3 2.0-12.0 [facility] NorthwestJphjepiSJGXDYSWLB9969-89-79 18:46:00 Test Item Value Reference Range Interpretation Comments Lymphocytes (test code = Lymphocytes) 28.0 20.0-40.0 [facility] NorthwestLfydkldSYUNFZCFGH6468-18-44 18:46:00 Test Item Value Reference Range Interpretation Comments Monocytes # (test code 0.5 See_Comment [Aut omated message] The = Monocytes #) system which generated this result tra nsmitted reference range : <=0.8. The reference r mitra was not used to int erpret this result as normal/abnormal . [facility] NorthwestAxcivalRHKRCDLSXB7335-96-73 18:46:00 Test Item Value Reference Range Interpretation Comments Basophils (test code = 1.1 See_Comment [Aut omated message] The Basophils) system which ge nerated this result tra nsmitted reference range : <=1.0. The reference r mitra was not used to int erpret this result as normal/abnormal . [facility] NorthwestIxcltkxWIFORIIZED3715-28-85 18:46:00 Test Item Value Reference Range Interpretation Comments Lymphocytes # (test code = Lymphocytes 1.5 1.0-5.5 #) [facility] NorthwestUppjkooHPKTAQRWJN1221-61-56 18:46:00 Test Item Value Reference Range Interpretation Comments Segs-Bands # (test code = Segs-Bands #) 2.9 1.5-8.1 [facility] NorthwestJiuacvxFWHPPKQCBG1178-94-15 18:46:00 Test Item Value Reference Range Interpretation Comments Eosinophils # (test code 0.2 See_Comment [A utomated message] The = Eosinophils #) system whic h generated this result tra nsmitted reference range : <=0.5. The reference r mitra was not used to int erpret this result as normal/abnormal . [facility] NorthwestIlykkgsNKVGATOUZT0050-10-96 18:46:00 Test Item Value Reference Range Interpretation Comments Basophils # (test code 0.1 See_Comment [Aut omated message] The = Basophils #) system which generated this result tra nsmitted reference range : <=0.2. The reference r mitra was not used to int erpret this result as normal/abnormal . [facility] NorthwestZcbdqbfVQOOXLEIOG9839-59-52 18:46:00 Test Item Value Reference Range Interpretation Comments PT (test code = PT) 11.2 s 12.0-14.7 [facility] NorthwestQfkygrfXHHINBZDBG2648-18-00 18:46:00 Test Item Value Reference Range Interpretation Comments INR (test code = INR) 0.82 0.85-1.17 [facility] NorthwestQjgjtpoWYTPZIVVNP1592-36-00 18:46:00 Test Item Value Reference Range Interpretation Comments PTT (test code = PTT) 28.6 s 22.9-35.8 [facility] NorthwestZllzhdsLJMKDVNVSQ3848-76-16 18:46:00 Test Item Value Reference Range Interpretation Comments MPV (test code = MPV) 8.1 7.4-10.4 [facility] NorthwestAjkdrpgSHSHZZDTUO4610-89-74 18:46:00 Test Item Value Reference Range Interpretation Comments Platelet (test code = Platelet) 301 133-450 [facility] NorthwestXwqvqnwYFQRTVKLZZ1858-77-25 18:46:00 Test Item Value Reference Range Interpretation Comments RDW (test code = RDW) 14.5 11.5-14.5 [facility] NorthwestBlirwilVWBHYUCCYQ1465-99-48 18:46:00 Test Item Value Reference Range Interpretation Comments RBC (test code = RBC) 4.84 4.70-6.10 [facility] NorthwestExejcqpUQZIKVJBTK0886-44-69 18:46:00 Test Item Value Reference Range Interpretation Comments Hgb (test code = Hgb) 14.4 14.0-18.0 [facility] NorthwestGdceuuqNWRRQFVEGK6751-29-81 18:46:00 Test Item Value Reference Range Interpretation Comments WBC (test code = WBC) 5.2 3.7-10.4 [facility] NorthwestKqvbrinNLIGCGWXDW7942-48-55 18:46:00 Test Item Value Reference Range Interpretation Comments MCH (test code = MCH) 29.8 pg 27.0-31.0 [facility] NorthwestWkvnvzlNQBPMCNWHH9871-52-11 18:46:00 Test Item Value Reference Range Interpretation Comments MCV (test code = MCV) 92.0 80.0-94.0 [facility] NorthwestCfovgqaDIUWQGLAHT0437-77-88 18:46:00 Test Item Value Reference Range Interpretation Comments Hct (test code = Hct) 44.5 42.0-54.0 [facility] NorthwestWatomajQFGPLQKICG0503-39-61 18:46:00 Test Item Value Reference Range Interpretation Comments MCHC (test code = MCHC) 32.4 32.0-36.0 [facility]772[facility]-58 18:46:00 Test Item Value Reference Range Interpretation Comments [place]-Hep C Ab (test Negative *NA*(07/22/14 code = [place]-Hep C 1:46 PM) Ab) [facility] AND [id number] 18:46:00 Test Item Value Reference Range Interpretation Comments UA Urobilinogen (test code = UA <=1.0 mg/dL 0.1-1.0 Urobilinogen) [facility] AND [id number] 18:46:00 Test Item Value Reference Range Interpretation Comments UA Sq Epi (test code = UA Sq Epi) None Seen [facility] AND [id number] 18:46:00 Test Item Value Reference Range Interpretation Comments UA Leuk Est (test Negative (07/22/14 1:46 code = UA Leuk Est) PM) [facility] AND [id number] 18:46:00 Test Item Value Reference Range Interpretation Comments UA Nitrite (test code Negative (07/22/14 1:46 = UA Nitrite) PM) [facility] AND [id number] 18:46:00 Test Item Value Reference Range Interpretation Comments UA Blood (test code = Negative (07/22/14 1:46 UA Blood) PM) [facility] AND [id number] 18:46:00 Test Item Value Reference Range Interpretation Comments UA Ketones (test code = UA Negative mg/dL Ketones) [facility] AND [id number] 18:46:00 Test Item Value Reference Range Interpretation Comments UA Bili (test code = Negative *NA*(07/22/14 UA Bili) 1:46 PM) [facility] AND [id number] 18:46:00 Test Item Value Reference Range Interpretation Comments UA Bacteria (test code = UA Occasional /HPF Bacteria) [facility] AND [id number] 18:46:00 Test Item Value Reference Range Interpretation Comments UA RBC (test code = no gt See_Comment [Automa elizabeth message] The UA RBC) system which ge nerated this result transmit elizabeth reference range : <=2. The reference range was not used to interpr et this result as margaret l/abnormal. [facility] AND [id number] 18:46:00 Test Item Value Reference Range Interpretation Comments UA WBC (test code = 1 See_Comment [Automa elizabeth message] The UA WBC) system which ge nerated this result transmit elizabeth reference range : <=5. The reference range was not used to interpr et this result as margaret l/abnormal. [facility] AND [id number] 18:46:00 Test Item Value Reference Range Interpretation Comments UA Glucose (test code = UA Glucose) 30 mg/dL [facility] AND [id number] 18:46:00 Test Item Value Reference Range Interpretation Comments UA Protein (test code = UA Negative mg/dL Protein) [facility] AND [id number] 18:46:00 Test Item Value Reference Range Interpretation Comments UA pH (test code = UA pH) 6.5 5.0-8.0 [facility] AND [id number] 18:46:00 Test Item Value Reference Range Interpretation Comments UA Turbidity (test code = Clear (07/22/14 1:46 UA Turbidity) PM) [facility] AND [id number] 18:46:00 Test Item Value Reference Range Interpretation Comments UA Spec Grav (test code = UA Spec Grav) 1.010 [facility] AND [id number] 18:46:00 Test Item Value Reference Range Interpretation Comments UA Color (test code = Light Yellow UA Color) *NA*(07/22/14 1:46 PM) [facility] [id number] 18:46:00 Test Item Value Reference Range Interpretation Comments Magnesium Lvl (test code = Magnesium 1.8 1.8-2.4 Lvl) [facility]aprfjnPRSZBGYMIYPE3140-65-36 18:46:00 Test Item Value Reference Range Interpretation Comments AGAP (test code = AGAP) 13.2 10.0-20.0 [facility] CenterRoznrvtGUFEPUOPJWTM0138-59-04 18:46:00 Test Item Value Reference Range Interpretation Comments B/C Ratio (test code = B/C Ratio) 18 6-25 [facility] CenterQmyshjkBLUNIAXCKUMF5959-68-84 18:46:00 Test Item Value Reference Range Interpretation Comments A/G Ratio (test code = A/G Ratio) 1.1 0.7-1.6 [facility] CenterTnhdfnwQOGIQSLDOCBU0541-97-72 18:46:00 Test Item Value Reference Range Interpretation Comments Globulin (test code = Globulin) 3.3 2.0-4.0 [facility] CenterHsyigskBVKURDZWYSCA4449-44-27 18:46:00 Test Item Value Reference Range Interpretation Comments eGFR (test code = eGFR) 99 [facility] CenterGlgdeuhZMVSGCAMOUPL4832-03-57 18:46:00 Test Item Value Reference Range Interpretation Comments Calcium Lvl (test code = Calcium Lvl) 9.0 8.5-10.5 [facility] CenterBgkmpcbDNXUBFARQDIF3767-63-81 18:46:00 Test Item Value Reference Range Interpretation Comments Chloride Lvl (test code = Chloride Lvl) 106 95-109 [facility] CenterIbmomctRKZTCIOWWVUQ1440-15-51 18:46:00 Test Item Value Reference Range Interpretation Comments Creatinine Lvl (test code = Creatinine 0.9 0.5-1.4 Lvl) [facility] CenterFxthabcTZQXBJYTFOUO4851-87-99 18:46:00 Test Item Value Reference Range Interpretation Comments Potassium Lvl (test code = Potassium 4.2 3.5-5.1 Lvl) [facility] CenterJxzfsunSHBYBAYRIYPR1804-30-24 18:46:00 Test Item Value Reference Range Interpretation Comments Sodium Lvl (test code = Sodium Lvl) 139 135-145 [facility] CenterCryopigWNAUXBVMTUUQ8134-34-26 18:46:00 Test Item Value Reference Range Interpretation Comments CO2 (test code = CO2) 24 24-32 [facility] CenterNsdoqzhWVRDKQIFDFFB0542-09-34 18:46:00 Test Item Value Reference Range Interpretation Comments BUN (test code = BUN) 16 7-22 [facility] CenterUaznfrsCQLCOLUBDFGU1050-27-25 18:46:00 Test Item Value Reference Range Interpretation Comments Glucose Lvl (test code = Glucose Lvl) 141 70-99 [facility] CenterVxmbibzEMRABNXQFJKR3619-87-70 18:46:00 Test Item Value Reference Range Interpretation Comments Albumin Lvl (test code = Albumin Lvl) 3.6 3.5-5.0 [facility] CenterHdeslclQVRJEJBFNKGA2795-34-66 18:46:00 Test Item Value Reference Range Interpretation Comments Alk Phos (test code = Alk Phos) 65 39-136 [facility] CenterBazorviUOBWGUCKUHWQ1686-18-33 18:46:00 Test Item Value Reference Range Interpretation Comments Bili Total (test code = Bili Total) 0.3 0.2-1.3 [facility] CenterIhguhivNNKRGEYPWOBN8315-70-47 18:46:00 Test Item Value Reference Range Interpretation Comments ALT (test code = ALT) 100 See_Comment [Auto mated message] The system which ge nerated this result transmit elizabeth reference range : <=65. The reference range was not used to interpr et this result as margaret l/abnormal. [facility] CenterXpnrudjXVDWLKJAMVMK5556-97-26 18:46:00 Test Item Value Reference Range Interpretation Comments AST (test code = AST) 53 See_Comment [Auto mated message] The system which ge nerated this result transmit elizabeth reference range : <=37. The reference range was not used to interpr et this result as margaret l/abnormal. [facility] CenterQtdfxrwLWQIRPAEDRZE0832-94-16 18:46:00 Test Item Value Reference Range Interpretation Comments Total Protein (test code = Total 6.9 6.4-8.4 Protein) [facility] NorthwestNmadvmyHZFHRCACPS5220-80-04 18:46:00 Test Item Value Reference Range Interpretation Comments Eosinophils (test code = 4.2 See_Comment [A utomated message] The Eosinophils) system which ge nerated this result tra nsmitted reference range : <=4.0. The reference r mitra was not used to int erpret this result as normal/abnormal . [facility] NorthwestAxpvkqcYEKMMUZACM1907-35-65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
== END 2022-07-19 13:47 | disposition left against medical advice (07) ==
LOC: ER 13:10
DX: Z02.9 Encounter for administrative examinations, unspecified (principal)

== ENCOUNTER 2022-07-19 13:51 | Emergency (ER) | payer OTHER ==
--- OUTSIDE RECORDS SUMMARY | 2022-07-19 14:34 | XMS REPORT | Continuity of Care Document ---
:1960 Author Organization [facility] t Address [address] [place] [address] [address] [place] [address] Care Team Providers Name Role Phone Asked, No Pcp Primary Care Physician Unavailable [id number] Attending Clinician Unavailable IZABELA PHAM Attending Clinician [...] Clinician Jerrica CARTER, Robina Valdez Attending Clinician LAUREEN MOORE Attending Clinician Unavailable Kaden CARTER, Sunny Attending Clinician [phone] Fabienne CARTER, Olga Attending Clinician Laureen Moore MD Attending Clinician Doctor Unassigned, [place] Attending Clinician Unavailable ALLAN LYNCH Attending Clinician [...] Unavailable DAWSON CHOUDHURY Attending Clinician Unavailable , [facility] Sleep [facility] Bed Attending Clinician Unavailable Susan Manjarrez PA-C Attending Clinician SUSAN MANJARREZ Attending Clinician Unavailable DELROY FARAH Attending Clinician Unavailable Delroy Farah MD Attending Clinician [facility] Sleep Lab Attending Clinician Unavailable Erma Morales RN Attending Clinician Unavailable MAGDALENE MALDONADO Attending Clinician Unavailable Joel SECOND BALLER, Magdalene Attending Clinician Sejal WALL, Joe Attending Clinician CARLOS CORBIN Attending Clinician Unavailable Ladonna Bryant DO Attending Clinician MICHAEL SARGENT S Attending Clinician Unavailable Michael Fulton S Attending Clinician CLEVE_ Attending Clinician Unavailable BENITO LOPEZ Attending Clinician Unavailable Edgard Leo DO Attending Clinician Kirsten CARTER, Magali Attending Clinician Ted Lion MD Attending Clinician Allen Maravilla MD Attending Clinician Perla CARTER, Georgina Key Attending Clinician [phone] SIENNA POLK Attending Clinician Unavailable LADI RIBERA Attending Clinician Unavailable YASMINE BROOKE Attending Clinician Unavailable MD YASMINE BROOKE Attending Clinician Unavailable Pato Hill MD Attending Clinician Surgery, Tdc General Attending Clinician Unavailable Sofia Malone MD Attending Clinician Surgery, Tdc Vascular Attending Clinician Unavailable Ramana Padron MD Attending Clinician RAMANA SHEA M.D., RAMANA Acevedo M.D. Attending Clinician Unavailable Christy Moya Attending Clinician [id number] Admitting Clinician Unavailable IZABELA PHAM Admitting Clinician [...] Clinician Perla CARTER, Georgina Key Admitting Clinician [phone] YASMINE BROOKE Admitting Clinician Unavailable MD YASMINE BROOKE Admitting Clinician Unavailable Pato Hill MD Admitting Clinician RAMANA SHEA M.D., RAMANA Acevedo Admitting Clinician Tasha ivey Payers Payer Name Policy Type Policy Number Effective Date Expiration Date S emmanuel [facility] [id number] [place] [id number] 2021 CLASSIC NO PREMIUM 00:00:00 HMO MEDICARE PART A [id number] 2003 00:00:00 [facility] [id number] [facility] 00:00:00 WELLCARE MAPS [id number] 2022 00:00:00 WELLCARE VALUE [id number] 2020 00:00:00 Problems Condition Condition Condition Status Onset Resolution Last Treating Co mments Source Name Details Category Date Date Treatment Clinician Date Cellulitis Cellulitis Disease Active U nivers of right of right 5-29 ity of lower lower 00:00: [place] extremity extremity 00 [facility] Branch Acute Acute Disease Active [facility] metabolic metabolic 5-14 [facility] encephalop encephalop 00:00: Ga dical athy athy 00 Center Toxic Toxic Disease Active [facility] encephalop encephalop 5-14 Alison kes athy athy 00:00: Medical 00 Center Hydronephr Hydronephr Disease Active [facility] osis osis 5-09 [facility] 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 4-14 ity of 00:00: [place] 00 Medical Branch DVT (deep DVT (deep Disease Active Uni vers venous venous 4-14 [place] of [place] 00 [facility] Branch Bilateral Bilateral Disease Active Uni vers sciatica sciatica 4-13 ity of 00:00: [place] 00 Medical Branch Obesity Obesity Disease Active [...] chronicity chronicity ally from request for surgery [id number] Lipoma of Lipoma of Disease Active Overview: Univers right right 4-12 Formattin ity of lower lower 00:00: g of this [place] extremity extremity 00 note Medi gordon might be Branch different from the original. Added automatic ally from request for surgery [id number] Lipoma of Lipoma of Disease Active Uni vers torso torso 4-06 ity of 00:00: [place] [facility] Kamryn Kamryn Disease Active Univers 624 ity of 00:00: Medical Branch Rhabdomyol Rhabdomyol Disease Active U nivers ysis ysis 6-21 ity of 00:00: [place] [facility] Presence Presence Disease Active Metho di of IVC of IVC [facility] [facility] filter filter 00:00: Hospita 00 l Acute Acute Disease Active Methodi chest pain chest pain 9-15 st 00:00: Hospita 00 l Behavior Behavior Disease Active Unive rs problem problem 6-13 ity of 00:00: [place] [facility] Cellulitis Cellulitis Disease Active U nivers and and 613 ity of abscess of abscess of [place] foot foot 00 Medical [place] Alteration Alteration Disease Active U nivers consciousn consciousn 6-13 it y of ess ess 00:00: [place] 00 Medical Branch TESTING TESTING Diagnosis Active 2014-07-28 Memoria FOR DVT FOR DVT 07-22 14:06:00 l Active 00:00: [place] 07/22/2014 00 [facility] [place][note 2] 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 2-16 ity of disorder, disorder, 00:[place] chronic chronic 00 Medical condition condition Bran ch with acute with acute exacerbati exacerbati on on Hypertensi Hypertens Problem Active 2014-07-25 Memoria ve raisa 07:19:48 l disorder, disorder, Herm britt systemic systemic arterial arterial (disorder) (disorder) Active Problem 07/25/2014 [facility] [place][note 2] History of Past Illness Condition Condition Condition Status Onset Resolution Last Treating Co mments Source Name Details Category Date Date Treatment Clinician Date Discharge Discharge Problem 2014-2014-07-25 2014-07-25 Memoria Diagnosis: Diagnosis: 07-22 07:19:48 07:19:48 l Chronic Chronic 05:00: [place] back pain back pain 00 07/22/2014 5 [facility] [place][note 2] Discharge Discharge Problem 2014-07-25 2014-07-25 Memoria Diagnosis: Diagnosis: 07-22 07:19:48 07:19:48 l Peripheral Peripheral 05:00: He rmann edema edema 00 07/22/2014 07/25/2014 [facility] [place][note 2] Allergies, Adverse Reactions, Alerts Allergy Allergy Status [...] Center s P[facility]ICILL Allergy Active Low Rash [address] [facility] -09 [facility] 00:[facility]: Medical 00 Center HEPARIN DRUG [...] 00:00: s 00 [place] Propensi Active Rash 0 Univer s ins ty to 1-06 ity of adverse 00:00: [place] reaction 00 Medical s to Branch drug PENICILL Drug Active Rash 2015-0 Univers INS Class 1-06 ity of 00:00: [place] 00 Medical Branch Penicill Penicill Active Memori a in in l [place] Family History Family Member Diagnosis Comments Start Date Stop Date Source Natural father Heart attack [facility] Natural mother Diabetes [facility] Social History Social Habit Start Date Stop Date Quantity Comments Source [facility] History SDOH University o f Alcohol Std Drinks [place] [facility] History SDOH University o f Alcohol Binge [place] [facility] al Branch History SDOH Social Unive rsity of Connections [facility] Med ical Together Branch History SDOH Social Unive rsity of Connections [facility] Medical Branch History SDOH Social Unive rsity of Connections [place] Medical Membership Branch History SDOH Social Unive rsity of Connections [place] Medical Meetings Branch Exposure to 2022-07-01 2022-07-11 [...] 5 University o f Financial 00:00:00 00:00:00 [place] [facility] History SDOH Food 2022-05-27 2022-05-27 1 Univers ity of Worry 00:00:00 00:00:00 [place] [facility] History SDHI Food 2022-05-27 2022-05-27 1 Univers ity of Scarcity 00:00:00 00:00:00 [place] [facility] History SDHI 2022-05-27 2022-05-27 2 University o f Transport Med 00:00:00 00:00:00 [place] Medic al Branch History SDHI 2022-05-27 2022-05-27 2 University o f Transport Non-Med 00:00:00 00:00:00 [place] M edical Branch History SDHI 2022-05-27 2022-05-27 2 University o f Housing Unable to 00:00:00 00:00:00 [place] M edical Pay Branch History [facility] 2022-05-27 2022-05-27 1 University o f Housing Places 00:00:00 00:00:00 [place] Medi gordon Lived Branch History [facility] 2022-05-27 2022-05-27 2 University o f Housing Homeless 00:00:00 00:00:00 [facility] dical Last Year Branch Education 2022-05-26 2022-05-26 21 University of 00:00:00 00:00:00 [facility] Tobacco use and 2022-05-03 2022-05-03 User of Universit y of exposure 00:00:00 00:00:00 smokeless [facility] [place] [facility] Tobacco Comment 2021-09-22 2021-09-22 dipper Universit y of 00:00:00 00:00:00 [facility] History of Social 2019-10-31 2019-10-[address] function 00:00:00 00:00:00 Hospital Alcohol intake 2019-10-29 2019-10-29 Lifetime Congregation 00:00:00 00:00:00 non-drinker Hospital (finding) History of tobacco 2014-08-25 Snuff User Univer sity of use 00:00:00 [facility] Sex Assigned At [birth year] KIM Busch kes 00:00:00 00:00:00 Medical Center Smoking Status Start Date Stop Date Source Social History [facility] Medications Ordered Filled Start Stop Current Ordering Indication Dosage Frequency Signature Comments Components Source Medication Medication Date Date Medication? Clinician (SIG) Name Name clindamycin 2022- No 900mg 900 mg, IV Univers in 5 % 07-11 Piggyback, ity of dextrose 10:45: 11:47 ONCE, 1 [place] (CLEOCIN) 00 :00 dose, On Medica l 900 mg/50 Mon [place] mL IV 07/11/22 at piggyback 0545, RTU 900 mg Administer over 30 Minutes, 50 mL
R chelsea for Anti-Infec tive: Empiric Therapy for Suspected Infection< br>Empiric Therapy Site: Skin / Soft tissue
Duration of therapy: 5 days
Re stricted use approved by: ED PROVIDER [email or web address] 2022-2022- No 1000mg 1,000 mg, Univers (ROCEPHIN) 07-05 IV ity of 1,000 mg in 14:15: 14:53 [place], [place] NaCl 0.9% 00 :00 ONCE, 1 [...] 07/05/22 at 0715, Routine OLANZapine 2022-0 Yes [id number] 5mg Take 1 Univers 5 mg tablet 5-23 tablet by ity of 00:00: mouth in [place] 00 the Medical morning. [place] OLANZapine 2022-0 Yes [id number] 5mg Take 1 Univers 5 mg tablet 5-23 tablet by ity of 00:00: mouth in [place] 00 the Medical morning. Branch OLANZapine 2022-0 Yes [id number] 5mg Take 1 Univers 5 mg tablet 5-23 tablet by ity of 00:00: mouth in [place] 00 the Medical morning. Branch OLANZapine 2022-0 Yes [id number] 5mg Take 1 Univers 5 mg tablet 5-23 tablet by ity of 00:00: mouth in [place] 00 the Medical morning. Branch OLANZapine 3-0 Yes [id number] 5mg Take 1 Univers 5 mg tablet 5-23 tablet by ity of 00:00: mouth in [place] 00 the Medical morning. Branch OLANZapine 3-0 Yes [id number] 5mg Take 1 Univers 5 mg tablet 5-23 tablet by ity of 00:00: mouth in [place] 00 the Medical morning. Branch OLANZapine 3-0 Yes [id number] 5mg Take 1 Univers 5 mg tablet 5-23 tablet by ity of 00:00: mouth in [place] 00 the Medical morning. Branch furosemide 2022-0 2022- Yes [id number] 40mg Take 1 Univers 40 mg 5-23 06-07 tablet by ity of tablet 00:00: 04:59 mouth [place] 00 :00 every Medical morning Branch and evening for 14 days. furosemide 2022-0 2022- Yes [id number] 40mg Take 1 Univers 40 mg 5-23 06-07 tablet by ity of tablet 00:00: 04:59 mouth [place] 00 :00 every Medical morning Branch and evening for 14 days. furosemide 2022-0 2022- Yes [id number] 40mg Take 1 Univers 40 mg 5-23 06-07 tablet by ity of tablet 00:00: 04:59 mouth [place] 00 :00 every Medical morning Branch and evening for 14 days. furosemide 2022-0 2022- Yes [id number] 40mg Take 1 Univers 40 mg 5-23 06-07 tablet by ity of tablet 00:00: 04:59 mouth [place] 00 :00 every Medical morning Branch and evening for 14 days. furosemide 2022-0 2022- Yes [id number] 40mg Take 1 Univers 40 mg 5-23 06-07 tablet by ity of tablet 00:00: 04:59 mouth [place] 00 :00 every Medical morning Branch and evening for 14 days. furosemide 2022-0 2022- Yes [id number] 40mg Take 1 Univers 40 mg 5-23 06-07 tablet by ity of tablet 00:00: 04:59 mouth [place] 00 :00 every Medical morning Branch and evening for 14 days. furosemide 2022-0 2022- Yes [id number] 40mg Take 1 Univers 40 mg 5-23 06-07 tablet by ity of tablet 00:00: 04:59 mouth [place] 00 :00 every Medical morning Branch and evening for 14 days. cephALEXin 2023-0 2023- Yes [id number] 1000mg Take 2 Univers 500 mg 07-05 [id number] capsules ity of capsule 00:00: 04:59 by mouth [place] 00 :00 in the Medical morning Branch and 2 capsules in the evening. Do all this for 7 days. cephALEXin 2023-0 2023- Yes [id number] 1000mg Take 2 Univers 500 mg 07-05 [id number] capsules ity of capsule 00:00: 04:59 by mouth [place] 00 :00 in the Medical morning Branch and 2 capsules in the evening. Do all this for 7 days. cephALEXin 2023-0 2023- Yes [id number] 1000mg Take 2 Univers 500 mg 07-05 [id number] capsules ity of capsule 00:00: 04:59 by mouth [place] 00 :00 in the Medical morning Branch and 2 capsules in the evening. Do all this for 7 days. cephALEXin 202-0 2023- Yes [id number] 1000mg Take 2 Univers 500 mg 07-05 [id number] capsules ity of capsule 00:00: 04:59 by mouth [place] 00 :00 in the Medical morning Branch and 2 capsules in the evening. Do all this for 7 days. cephALEXin 2023-0 2023- Yes [id number] 1000mg Take 2 Univers 500 mg 07-05 [id number] capsules ity of capsule 00:00: 04:59 by mouth [place] 00 :00 in the Medical morning Branch and 2 capsules in the evening. Do all this for 7 days. apixaban 5 2022-0 Yes [id number] 5mg Take 1 Unive rs mg tablet 5-22 tablet by ity o f 00:00: mouth in [place] [address] the [facility] morning Branch and 1 tablet in the evening. Indication s: history of deep vein thrombosis apixaban 5 3-0 Yes [id number] 5mg Take 1 Unive rs mg tablet 5-22 tablet by ity o f 00:00: mouth in [place] [address] the [facility] morning Branch and 1 tablet in the evening. Indication s: history of deep vein thrombosis apixaban 5 3-0 Yes 5523 5mg Take 1 Unive rs mg tablet 5-22 tablet by ity o f 00:00: mouth in [place] [address] the [facility] morning Branch and 1 tablet in the evening. Indication s: history of deep vein thrombosis apixaban 5 3-0 Yes 5523 5mg Take 1 Unive rs mg tablet 5-22 tablet by ity o f 00:00: mouth in [place] [address] the [facility] morning Branch and 1 tablet in the evening. Indication s: history of deep vein thrombosis apixaban 5 3-0 Yes 5523 5mg Take 1 Unive rs mg tablet 5-22 tablet by ity o f 00:00: mouth in [place] [address] the [facility] morning Branch and 1 tablet in the evening. Indication s: history of deep vein thrombosis apixaban 5 3-0 Yes 5523 5mg Take 1 Unive rs mg tablet 5-22 tablet by ity o f 00:00: mouth in [place] [address] the [facility] morning Branch and 1 tablet in the evening. Indication s: history of deep vein thrombosis apixaban 5 3-0 Yes 5523 5mg Take 1 Unive rs mg tablet 5-22 tablet by ity o f 00:00: mouth in [place] [address] the [facility] morning [place] and 1 tablet in the evening. Indication s: history of deep vein thrombosis apixaban 5 3-0 Yes 5523 5mg Take 1 Unive rs mg tablet 5-22 tablet by ity o f 00:00: mouth in [place] [address] the [facility] morning [place] and 1 tablet in the evening. Indication s: history of deep vein thrombosis apixaban 5 3-0 Yes 5523 5mg Take 1 Unive rs mg tablet 5-22 tablet by ity o f 00:00: mouth in [place] [address] the [facility] morning Branch and 1 tablet in the evening. Indication s: history of deep vein thrombosis apixaban 5 3-0 Yes 5523 5mg Take 1 Unive rs mg tablet 5-22 tablet by ity o f 00:00: mouth in [address] morning [place] and 1 tablet in the evening. Indication [...] mouth Center nightly. gabapentin 2023-0 Yes 300mg Q.[id number] Take [address] [facility] (NEURONTIN) 5-11 [id number] capsule [facility] 300 MG 18:24: 3D (300 [...] mouth Center nightly. gabapentin 2023-0 Yes 300mg Q.[id number] Take [address] (NEURONTIN) 5-11 [id number] capsule [facility] 300 MG 18:24: 3D (300 [...] s mg tablet 06-13 ity of 00:00: [place] [facility] traMADoL 50 2022-0 Yes Univer s mg tablet 06-13 ity of 00:00: [place] [facility] traMADoL 50 2022-0 Yes Univer s mg tablet 06-13 ity of 00:00: [place] [facility] traMADoL 50 2022-0 Yes Univer s mg tablet 06-13 ity of 00:00: [place] [facility] traMADoL 50 2022-0 Yes Univer s mg tablet 06-13 ity of 00:00: [place] [facility] traMADoL 50 2022-0 Yes Univer s mg tablet 06-13 ity of 00:00: [place] [facility] traMADoL 50 2022-0 Yes Univer s mg tablet 06-13 ity of 00:00: [place] [facility] traMADoL 50 2022-0 Yes Univer s mg tablet 06-13 ity of 00:00: [place] [facility] traMADoL 50 2022-0 Yes Univer s mg tablet 06-13 ity of 00:00: [place] [facility] traMADoL 50 2022-0 Yes Univer s mg tablet 06-13 ity of 00:00: [place] [facility] traMADoL 50 2022-0 Yes Univer s mg tablet 06-13 ity of 00:00: [place] [facility] traMADoL 50 2022-0 Yes Univer s mg tablet 06-13 ity of 00:00: [place] [facility] traMADoL 50 2022-0 Yes Univer s mg tablet 06-13 ity of 00:00: Medical Branch traMADoL 50 2022-0 Yes Univer s mg tablet 06-13 ity of 00:00: [place] [facility] traMADoL 50 2022-0 Yes Univer s mg tablet 06-13 ity of 00:00: [place] [facility] traMADoL 50 2022-0 Yes Univer s mg tablet 06-13 ity of 00:00: [place] [facility] traMADoL 50 2022-0 Yes Univer s mg tablet 06-13 ity of 00:00: [place] [facility] tc 2022- No [id number] 25mCi 25 Univer s 99m-medrona 4- 04-25 millicurie i ty of te 13:50: 13:50 , [place] (DRAXIMAGE 00 :00 Intravenou Med ical MDP-25) s, ONCE, 1 Branch injection dose, On 25 Tue millicurie 06/07/22 at 0900, Routine apixaban 2022- Yes [id number] 5mg Take 1 Univ ers mg tablet 06-07- tablet by ity of 00:00: 04:59 mouth in [place] 00 :00 the Medical morning Branch and 1 tablet in the evening. Do all this for 30 days. Indication s: history of deep vein thrombosis apixaban 2022- Yes 5523 5mg Take 1 Univ ers mg tablet 06-07-26 tablet by ity of 00:00: 04:59 mouth in [place] 00 :00 the Medical morning Branch and 1 tablet in the evening. Do all this for 30 days. Indication s: history of deep vein thrombosis apixaban 2022- Yes 5523 5mg Take 1 Univ ers mg tablet 06-07-26 tablet by ity of 00:00: 04:59 mouth in [place] 00 :00 the Medical morning Branch and [...] by ity of 00:00: 04:59 mouth in [place] 00 :00 the Medical morning Branch and 1 tablet in the evening. Do all this for 30 days. Indication s: history of deep vein thrombosis apixaban 5 2022- No 5523 5mg Take 1 Univ ers mg tablet -07 07-22 tablet by ity of 00:00: 00:00 mouth in [place] 00 :00 the Medical morning Branch and 1 tablet in the evening. Do all this for 30 days. Indication s: history of deep vein thrombosis apixaban 5 2022-2022- No 5523 5mg Take 1 Univ ers mg tablet -07 07-22 tablet by ity of 00:00: 00:00 mouth in [place] 00 :00 the Medical morning Branch and 1 tablet in the evening. Do all this for 30 days. Indication s: history of deep vein thrombosis acetaminoph 2022- Yes [id number] 500mg Take 1 Univers en 500 mg 4-25 05-06 tablet by ity of tablet 00:00: 04:59 mouth [place] 00 :00 every 6 Medical (six) Branch hours as needed for Pain for up to 10 days. acetaminoph 2022- Yes [id number] 500mg Take 1 Univers en 500 mg 4-25 05-06 tablet by ity of tablet 00:00: 04:59 mouth [place] 00 :00 every 6 Medical (six) Branch hours as needed for Pain for up to 10 days. acetaminoph 2022- Yes [id number] 500mg Take 1 Univers en 500 mg 4-25 05-06 tablet by ity of tablet 00:00: 04:59 mouth [place] 00 :00 every 6 Medical (six) Branch hours as needed for Pain for up to 10 days. acetaminoph 2022- Yes [id number] 500mg Take 1 Univers en 500 mg 4-25 05-06 tablet by ity of tablet 00:00: 04:59 mouth [place] 00 :00 every 6 Medical (six) Branch hours as needed for Pain for up to 10 days. acetaminoph 2022- Yes [id number] 500mg Take 1 Univers en 500 mg 4-25 05-06 tablet by ity of tablet 00:00: 04:59 mouth [place] 00 :00 every 6 Medical (six) Branch hours as needed for Pain for up to 10 days. acetaminoph 2022- Yes [id number] 500mg Take 1 Univers en 500 mg 4-25 05-06 tablet by ity of tablet 00:00: 04:59 mouth [place] 00 :00 every 6 Medical (six) Branch hours as needed for Pain for up to 10 days. acetaminoph 2022- Yes [id number] 500mg Take 1 Univers en 500 mg 4-25 05-06 tablet by ity of tablet 00:00: 04:59 mouth [place] 00 :00 every 6 Medical (six) Branch hours as needed for Pain for up to 10 days. docusate 2022- Yes [id number] 100mg Take 1 Univers 100 mg 4-25 [...] Indication s: acute pain polyethylen 2022- Yes [id number] 17g Take 1 Univers e glycol 4-25 05-03 Packet by ity o f 3350 17 00:00: 04:59 mouth [place] gram powder 00 :00 every 24 Medi gordon (twenty-fo Branch ur) hours as needed for Constipati on for up to 7 days. docusate 2022- Yes [id number] 100mg Take 1 Univers 100 mg 4-25 05-03 capsule by ity of capsule 00:00: 04:59 mouth in [place] 00 :00 the Medical morning Branch for [...] Indication s: acute pain polyethylen 2022- Yes [id number] 17g Take 1 Univers e glycol 4-25 05-03 Packet by ity o f 3350 17 00:00: 04:59 mouth [place] gram powder 00 :00 every 24 Medi gordon ([facility] Branch ur) hours as needed for Constipati on for up to 7 days. docusate 2022- Yes [id number] 100mg Take 1 Univers 100 mg 4-25 05-03 capsule by ity of capsule 00:00: 04:59 mouth in [place] 00 :00 the [facility] morning Branch for 7 days. HYDROcodone 2022- Yes [id number] 1{tbl} Take 1 U nivers -acetaminop 4-25 05-03 tablet by it y of hen 10-325 00:00: 04:59 mouth [place] mg tablet 00 :00 every 6 Medical (six) Branch hours as needed for Pain (scale 7-10) or Pain (scale 4-6) for up to 7 days. Indication s: acute pain polyethylen 2022- Yes [id number] 17g Take 1 Univers e glycol 4-25 05-03 Packet by ity o f 3350 17 00:00: 04:59 mouth [place] gram powder 00 :00 every 24 Medi gordon ([facility] Branch ur) hours as needed for Constipati on for up to 7 days. docusate 2022- Yes [id number] 100mg Take 1 Univers 100 mg 4-25 [...] Indication s: acute pain polyethylen 2022- Yes [id number] 17g Take 1 Univers e glycol 06-07 05-03 Packet by ity o f 3350 17 00:00: 04:59 mouth [place] gram powder 00 :00 every 24 Medi gordon (twenty-fo Branch ur) hours as needed for Constipati on for up to 7 days. benzocaine- Yes 1{lozen 1 Lozenge, Univers menthoL 4-23 ge} Oral, ity of (CEPACOL 05:03: Q4HPRN, [place] SORE THROAT 14 Starting Medi gordon (CLAUDIA-MEN)) on [facility] lozenge 1 06/05/22 at Lozenge 0003, Until Discontinu ed, Routine, Sore throat benzocaine- 0 Yes 1{lozen 1 Lozenge, Univers menthoL 4-23 ge} Oral, ity of (CEPACOL 05:03: Q4HPRN, [place] SORE THROAT 14 Starting Medi gordon (CLAUDIA-MEN)) on [facility] lozenge 1 06/05/22 at Lozenge 0003, Until Discontinu ed, Routine, Sore throat iopamidol 2022- No [id number] 80mL 80 mL, Univers (ISOVUE 06-05- Intravenou ity o f 370-500 mL) 01:36: 01:20 s, ONCE, 1 [place] injection 00 :00 dose, On Medica l 80 mL Sat Branch 06/04/22 at 2045, Routine apixaban 2022- Yes 10mg [Order 1 Univ ers (ELIQUIS) 06-05 Start] ity of tablet 10 01:00: 00:59 Name: [place] mg 00 :00 apixaban Medical (ELIQUIS) Branch tablet 10 mg Signed Summary: 10 mg, Oral, BID, 14 doses, First dose on [facility] 06/04/22 at 1999, Last dose on [facility] 06/11/22 at 0800, Routine
Indicatio ns: DVT/PE [Order 1 End] [Order 2 Start] Name: apixaban (ELIQUIS) tablet 5 mg Signed Summary: 5 mg, Oral, BID, First dose on [facility] 06/11/22 at 1999, Until Discontinu ed, Routine
Indicatio ns: DVT/PE [Order 2 End] apixaban 2022- Yes 10mg [Order 1 Univ ers (ELIQUIS) 06-05 Start] ity of tablet 10 01:00: 00:59 Name: [place] mg 00 :00 apixaban Medical (ELIQUIS) Branch tablet 10 mg Signed Summary: 10 mg, Oral, BID, 14 doses, First dose on [facility] 06/04/22 at 1999, Last dose on [facility] 06/11/22 at 0800, Routine
Indicatio ns: DVT/PE [Order 1 End] [Order 2 Start] Name: apixaban (ELIQUIS) tablet 5 mg Signed Summary: 5 mg, Oral, BID, First dose on [facility] 06/11/22 at 1999, Until Discontinu ed, Routine
Indicatio ns: DVT/PE [Order 2 End] bisacodyL Yes 10mg 10 mg, Univer s (DULCOLAX) 06-04 Rectal, ity of suppository 15:25: QDAILYPRNCarina 10 mg 51 Starting Medical on [facility] 06/04/22 at 1025, Until Discontinu ed, Routine, Constipati on bisacodyL Yes 10mg 10 mg, Univer s (DULCOLAX) 06-04 Rectal, ity of suppository 15:25: QDAILYPRN, [place] 10 mg 51 Starting Medical on [facility] 06/04/22 at 1025, Until Discontinu ed, [...] 1000 mL for 00 :55 06/03/22 at [place] [facility]ical vascular 0925, Branch Intra-op heparin 2022-0 [...] INITIAL INFUSION RATE.&nbsp ; _ &nb sp;FOR [facility] ONLY &nbs p; - aPTT < [...] Oral, ity of OIL EXTRA 14:00: DAILY, [place] HEAVY) oral 00 First dose Me dical liquid 30 on [place] Branch mL 06/02/22 at 0900, Until Discontinu ed, Routine mineral oil Yes 30mL 30 mL, Univ ers (MINERAL 4-20 Oral, ity of OIL EXTRA 14:00: DAILY, [place] HEAVY) oral 00 First dose Me dical [...] s mg 00 First dose Medical on [facility] 05/31/22 at 0900, Until Discontinu ed, Routine docusate 0 Yes 100mg 100 mg, Unive rs (COLACE) 4-18 Oral, ity of capsule 100 14:00: DAILY, [place] 00 First dose Medical on [facility] 05/31/22 at 0900, Until Discontinu ed, Routine docusate 0 Yes 100mg 100 mg, Unive rs (COLACE) 4-18 Oral, ity of capsule 100 14:00: DAILY, [place] 00 First dose Medical on [facility] 05/31/22 at 0900, Until Discontinu ed, Routine docusate 0 Yes 100mg 100 mg, Unive rs (COLACE) -18 Oral, ity of capsule 100 14:00: DAILY, [place] mg 00 First dose Medical on [facility] 05/31/22 at 0900, Until Discontinu ed, Routine heparin 0 2022- No 0U/h 0-3,050 Univer [...] INITIAL INFUSION RATE.&nbsp ; _ &nb sp;FOR [facility] ONLY &nbs p; - aPTT < [...] of ) injection 02:47: on Mon05/30/[address] Until Discontinu ed, Routine, Intra-op iopamidol 2022-0 Yes PRN, Univers (ISOVUE-300 4-18 Starting ity of ) injection 02:47: on Mon05/30/[address] Until Discontinu ed, Routine, Intra-op iopamidol 2022-0 Yes PRN, Univers (ISOVUE-300 4-18 Starting ity of ) injection 02:47: on Mon05/30/[address] Until Discontinu ed, Routine, Intra-op heparin 2022-0 Yes PRN, Univers 10,000 4-18 Starting ity of units in [place] 01:26: on [place] 1000 mL for 00 05/30/22 at [place] dical vascular 2025, Branch Intra-op heparin 2022-0 [...] 20 mEq 00 :00 dose, On Medical [facility] Branch 05/30/22 at 0615, Routine heparin 2022-0 2022- No [...] INITIAL INFUSION RATE.&nbsp ; _ &nb sp;FOR [facility] ONLY &nbs p; - [...] 03:31: Push, [place] 10 mg 53 Q4HPRN, [facility] Starting Branch on [place] 05/29/22 at 2231, Until Discontinu ed, Routine, SBP > 160 and HR > 70 labetaloL 2022-0 Yes 10mg 10 mg, Univer s (NORMODYNE) 4-17 Slow IV ity o f injection 03:31: Push, [place] 10 mg 53 Q4HPRN, [facility] Starting [place] on [place] 05/29/22 at 2231, Until Discontinu ed, Routine, SBP > 160 and HR > 70 traMADoL 2022-0 Yes 50mg 50 mg, Univers (ULTRAM) 4-17 Oral, Q6H, ity o f tablet 50 01:45: First dose [place] mg 00 on [facility] 05/29/22 at Branch 2044, Until Discontinu ed, Routine traMADoL 2022-0 Yes 50mg 50 mg, Univers (ULTRAM) 4-17 Oral, Q6H, ity o f tablet 50 01:45: First dose [place] mg 00 on [facility] 05/29/22 at Branch 2044, Until Discontinu ed, Routine traMADoL 2022-0 Yes 50mg 50 mg, Univers (ULTRAM) 4-17 Oral, Q6H, ity o f tablet 50 01:45: First dose [place] mg 00 on [facility] 05/29/22 at Branch 2044, Until Discontinu ed, Routine traMADoL 2022-0 Yes 50mg 50 mg, Univers (ULTRAM) 4-17 Oral, Q6H, ity o f tablet 50 01:45: First dose [place] mg 00 on [facility] 05/29/22 at Branch 2044, Until Discontinu ed, Routine HYDROcodone 2022-0 Yes 1{tbl} 1 tablet, Univers -acetaminop 4-17 Oral, ity of hen (NORCO) 01:37: Q6HPRN, [place] as 10-325 mg 54 Starting Medica l tablet 1 on [facility] tablet 05/29/22 at 2036, Until Discontinu ed, [...] Pain (scale 7-10), Pain (scale 4-6) heparin 2023-0 2023- No 300U/h 300 Univers 25,000 05-29 [...] at 1215, Until Discontinu ed, Routine acetaminoph 3-0 Yes 500mg 500 mg, Un mary en [...] as 5) 5-325 mg 06 :07 Starting [facility] tablet 1 on [place] tablet 05/29/22 [...] [place] injection 00 05/29/22 at [facility] [place] 0850, Branch Until Discontinu ed, Routine, Intra-op iodixanoL 2022-0 Yes PRN, Univers (VISIPAQUE 4-16 Starting ity o f 270-150 mL) 13:50: on [place] injection 00 05/29/22 at Medi [place] 0850, Branch Until Discontinu ed, Routine, Intra-op iodixanoL 2023-0 Yes PRN, Univers (VISIPAQUE 4-16 Starting ity o f 270-150 mL) 13:50: on [place] injection 05/29/22 at [place] [address], [place] Until Discontinu ed, Routine, Intra-op iodixanoL 2023-0 Yes PRN, Univers (VISIPAQUE 4-16 Starting ity o f 270-150 mL) 13:50: on [place] injection 05/29/22 at [place] [address], Branch Until Discontinu ed, Routine, Intra-op lidocaine 2023-0 Yes PRN, Univers 1% (PF) 4-16 Starting ity of (XYLOCAINE) 13:00: [place] injection 05/29/[address] Until Discontinu ed, Routine, Intra-op lidocaine 2023-0 Yes PRN, Univers 1% (PF) 4-16 Starting ity of (XYLOCAINE) 13:00: on [place] injection 05/29/22 at [place] [address], [place] Until Discontinu ed, Routine, Intra-op lidocaine 2023-0 Yes PRN, Univers 1% (PF) 4-16 Starting ity of (XYLOCAINE) 13:00: [place] injection 05/29/[address] Until Discontinu ed, Routine, Intra-op lidocaine 2023-0 Yes PRN, Univers 1% (PF) 4-16 Starting ity of (XYLOCAINE) 13:00: on [place] injection 05/29/22 at [place] [address], [place] Until Discontinu ed, Routine, Intra-op alteplase 2023-0 2023- No 1mg/h 1 mg/hr Uni vers (CATHFLO 05-2917 (25 ity of ACTIVASE) 12:30: 13:58 mL/hr), IV [place] 20 mg in 00 :35 Infusion, Medica l NaCl 0.9% CONTINUOUS Bran ch (NS) 500 mL , Starting infusion on [place] 05/29/22 at 0730
In fuse Via: infusion catheter. Location: left lower extremity sheath. Total infusion max dose is 4 mg/hr from all infusion sites combined.< br> alteplase 2023-0 2023- No 1mg/h 1 mg/hr [...] Rang e, Dosing and Testing: &nbs p;FOR [facility] AND [facility] ONLY &nbs p; - aPTT [...] reached.&n bsp; &nbs p; __ &n bsp;FOR [facility] ONLY - aPTT < 40: & [...] , Starting [place] mL vial) 36 on [facility] for 05/28/22 at Branch Rebolusing 1123, Until Discontinu ed, Routine
Dosing based on aPPT testing parameters (refer to continuous heparin drip order).
sulfur 2022- No [id number] 5mL 5 mL, Univ ers hexafluorid 05-27 Intravenou i ty of e microsphr 18:30: 18:30 s, ONCE, 1 [place] (LUMASON) 00 :00 dose, On Medica l injection 5 Mon [facility] 05/27/22 at 1330, Routine
membership secretary approving Restricted medication : HAROON MOYER enoxaparin 2022- No 1mg/kg 90 mg Uni vers (LOVENOX) 05-27 (rounded ity o f injection 14:07: 16:25 [place] 86.5 [place] 90 mg 50 :10 mg = 1 Medical mg/kg Branch ?86.5 kg), [facility], First dose on Mon05/27/22 [...] First dose [place] mg 00 :21 on [facility] Medical 05/27/22 at Branch 0800, Until Discontinu ed, Routine iopamidol 2022- No [id number] 100mL 100 mL, Univers (ISOVUE 05-27 [id number] Intravenou ity of 370-500 mL) 12:15: 12:15 [...] :15 Starting Medi [place] tablet 1 on [facility] tablet 05/26/22 at 2344, Until 05/29/22 at 1203, Routine, Pain (scale 4-6) ondansetron 3-0 Yes 4mg 4 mg, Slow Univers (ZOFRAN 4-14 IV [place], ity of (PF)) 01:30: Q6HPRN, [place] injection 4 58 Starting Medi [place] mg on [facility] Branch Branch 05/26/22 at 2030, Until Discontinu ed, Routine, Nausea and Vomiting (N/V) ondansetron 2023-0 Yes 4mg 4 mg, Slow Univers (ZOFRAN 4-14 IV [place], ity of (PF)) 01:30: Q6HPRN, [place] injection 4 58 Starting Medi [place] mg on [facility] Branch Branch 05/26/22 at 2030, Until Discontinu ed, Routine, Nausea and Vomiting (N/V) ondansetron 2023-0 Yes 4mg 4 mg, Slow Univers (ZOFRAN 4-14 IV [place], ity of (PF)) 01:30: Q6HPRN, [place] injection 4 58 Starting Medi [place] mg on [facility] Branch Branch 05/26/22 at 2030, Until Discontinu ed, Routine, Nausea and Vomiting (N/V) ondansetron 3-0 Yes 4mg 4 mg, Slow Univers (ZOFRAN 4-14 IV [place], ity of (PF)) 01:30: Q6HPRN, [place] injection 4 58 Starting Medi [place] mg on [facility] 05/26/22 at 2030, Until Discontinu ed, Routine, Nausea and Vomiting (N/V) morpHINE (2 2022-2022- No 4mg 4 mg, Slow Univers mg/mL) 05-2715 IV [place], ity of injection 4 01:30: 01:29 Q4HPRN, [place] mg 55 :55 Starting Medical on [facility] Branch Branch 05/26/22 at 2030, Until 05/27/22 at 202, Routine, Pain (scale 7-10) methocarbam 2022-0 2022- No 500mg 500 mg, U nivers oL 4-14 04-13 Oral, ity of (ROBAXIN) 00:00: 23:10 ONCE, 1 [place] tablet 500 00 :00 dose, On Medic al mg [facility] Branch Branch 05/26/22 at 1900, Routine traMADoL No 50mg 50 mg, Univer s (ULTRAM) 05-26 Oral, ity of tablet 50 23:45: 23:10 ONCE, 1 [place] mg 00 :00 dose, On [facility] 05/26/22 at 1845, Routine gabapentin 2022- No 300mg 300 mg, Un mary (NEURONTIN) 05-26 Oral, ity of capsule 300 23:00: 23:10 ONCE, 1 [place] mg 00 :00 dose, On [facility] 05/26/22 at 1800, MICHEL[place] methylpredn 2022- No 125mg 125 mg, U nivers isolone sod 05-26 Slow IV ity of succ 22:15: 21:28 Push, [place] (SOLU-MEDRO 00 :00 ONCE, 1 Medic al L) dose, On Branch injection [place] 125 mg 05/26/22 at 1715, MICHELLE furosemide No 40mg 40 mg, IV U nivers (LASIX) 05-26 [place], ity of injection 21:15: 21:19 ONCE, 1 [place] 40 mg 00 :00 dose, On [facility] 05/26/22 at 1615, MICHELLE ketorolac No 30mg 30 mg, Unive rs (TORADOL) 05-23 Intramuscu ity of injection 23:00: 22:35 [place], ONCE, [place] 30 mg 00 :00 1 dose, On [facility] 05/23/22 at 1800, Routine diazePAM No 2.5mg 2.5 mg, Univ ers (VALIUM) 05-23 Oral, ity of tablet 2.5 22:45: 23:09 ONCE, 1 [place] mg 00 :00 dose, On [facility] 05/23/22 at 1745, MICHELLE HYDROcodone 2022- No 1{tbl} 1 tablet, Univers -acetaminop 05-23 Oral, ONCE i ty of hen (NORCO) 11:45: 11:00 NOW, 1 [place] 10-325 mg 00 :00 dose, On Medica l tablet 1 [facility] tablet 05/23/22 at 0645, MICHELLE gabapentin 2022-0 2022- No 600mg 600 mg, Un mary (NEURONTIN) 05-23 Oral, ity of capsule 600 09:00: 09:09 ONCE, 1 [place] mg 00 :00 dose, On Medical [facility] Branch 05/23/22 at 0400, MICHELLE dexamethaso 2022-2022- No 10mg 10 mg, Uni vers ne sod phos 05-23 Intramuscu i ty of PF 09:00: 09:07 lar, ONCE, [place] injection 00 :00 1 dose, On Medi [place] 10 mg [facility] Branch 05/23/22 at 0400, 1 mL gabapentin 2022-0 Yes [id number] 300mg Take 1 Univers 300 mg 4-10 capsule by ity of capsule 00:00: mouth in [place] [address] the [facility] morning Branch and 1 capsule at noon and 1 capsule in the evening. gabapentin 2023-0 Yes [id number] 300mg Take 1 Univers 300 mg 4-10 capsule by ity of capsule 00:00: mouth in [place] [address] [facility] and 1 capsule at noon and 1 capsule in the evening. gabapentin 202-0 Yes [id number] 300mg Take 1 Univers 300 mg 4-10 capsule by ity of capsule 00:00: mouth in [place] [address] the [facility] morning Branch and 1 capsule at noon and 1 capsule in the evening. ketorolac 2023-0 Yes [id number] 10mg Take 1 U nivers 10 mg 4-10 tablet by ity of tablet 00:00: mouth [place] 00 every 6 Medical (six) Branch hours as needed for Pain (scale 7-10). gabapentin 2023-0 Yes [id number] 300mg Take 1 Univers 300 mg 4-10 capsule by ity of capsule 00:00: mouth in [place] [address] the [facility] morning [place] and 1 capsule at noon and 1 capsule in the evening. ketorolac 2023-0 Yes [id number] 10mg Take 1 U nivers 10 mg 4-10 tablet by ity of tablet 00:00: mouth [place] 00 every 6 Medical (six) Branch hours as needed for Pain (scale 7-10). gabapentin 2023-0 Yes [id number] 300mg Take 1 Univers 300 mg 4-10 capsule by ity of capsule 00:00: mouth in [place] 00 the Medical morning Branch and 1 capsule at noon and 1 capsule in the evening. ketorolac 2023-0 Yes [id number] 10mg Take 1 U nivers 10 mg 4-10 tablet by ity of tablet 00:00: mouth [place] 00 every 6 Medical (six) Branch hours as needed for Pain (scale 7-10). gabapentin 2023-0 Yes [id number] 300mg Take 1 Univers 300 mg 4-10 capsule by ity of capsule 00:00: mouth in [place] 00 the Medical morning Branch and 1 capsule at noon and 1 capsule in the evening. ketorolac 2023-0 Yes [id number] 10mg Take 1 U nivers 10 mg 4-10 tablet by ity of tablet 00:00: mouth [place] 00 every 6 Medical (six) Branch hours as needed for Pain (scale 7-10). gabapentin 2023-0 Yes [id number] 300mg Take 1 Univers 300 mg 4-10 capsule by ity of capsule 00:00: mouth in [place] 00 the Medical morning Branch and 1 capsule at noon and 1 capsule in the evening. ketorolac 2023-0 Yes [id number] 10mg Take 1 U nivers 10 mg 4-10 tablet by ity of tablet 00:00: mouth [place] 00 every 6 Medical (six) Branch hours as needed for Pain (scale 7-10). gabapentin 2023-0 Yes [id number] 300mg Take 1 Univers 300 mg 4-10 capsule by ity of capsule 00:00: mouth in [place] 00 the Medical morning Branch and 1 capsule at noon and 1 capsule in the evening. ketorolac 2023-0 Yes [id number] 10mg Take 1 U nivers 10 mg 4-10 tablet by ity of tablet 00:00: mouth [place] 00 every 6 Medical (six) Branch hours as needed for Pain (scale 7-10). gabapentin 2023-0 2023- No [id number] 300mg Take 1 Univers 300 mg 4-10 04-25 capsule by ity of capsule 00:00: 00:00 mouth in [place] 00 :00 the Medical morning Branch and 1 capsule at noon and 1 capsule in the evening. methocarbam 2022- No [id number] 500mg Take 1 Univers oL 500 mg 4-10 -25 tablet by ity of tablet 00:00: 00:00 mouth 4 [place] 00 :00 (four) Medical times Branch daily for 7 days. ketorolac 2022-2022- No [id number] 10mg Take 1 Univers 10 mg 4-10 -25 tablet by ity of tablet 00:00: 00:00 mouth [place] 00 :00 every 6 Medical (six) Branch hours as needed for Pain (scale 7-10). methocarbam 2022- Yes [id number] 500mg Take 1 Univers oL 500 mg 4-10 -18 tablet by ity of tablet 00:00: 04:59 mouth 4 [place] 00 :00 (four) Medical times Branch daily for 7 days. methocarbam 2022- Yes [id number] 500mg Take 1 Univers oL 500 mg 4-10 -18 tablet by ity of tablet 00:00: 04:59 mouth 4 [place] 00 :00 (four) Medical times Branch daily for 7 days. methocarbam 2022- Yes [id number] 500mg Take 1 Univers oL 500 mg 4-10 -18 tablet by ity of tablet 00:00: 04:59 mouth 4 [place] 00 :00 (four) Medical times Branch daily for 7 days. methocarbam 2022- No [id number] 500mg Take 1 Univers oL 500 mg 4-10 -18 tablet by ity of tablet 00:00: 04:59 mouth 4 [place] 00 :00 (four) Medical times Branch daily for 7 days. methocarbam 2022- No [id number] 500mg Take 1 Univers oL 500 mg 4-10 04-18 tablet by ity of tablet 00:00: 04:59 mouth 4 [place] 00 :00 (four) Medical times Branch daily for 7 days. mirtazapine 3-0 Yes [id number] 45mg Take 1 Univers 45 mg 2-23 tablet by ity of tablet 00:00: mouth at [place] 00 bedtime. Medical Branch mirtazapine 3-0 Yes [id number] 45mg Take 1 Univers 45 mg 2-23 tablet by ity of tablet 00:00: mouth at [place] [address] bedtime. Medical Branch mirtazapine 2022-0 Yes [id number] 45mg Take 1 Univers 45 mg 2-23 tablet by ity of tablet 00:00: mouth at [place] [address] bedtime. Medical Branch mirtazapine 2022-0 Yes [id number] 45mg Take 1 Univers 45 mg 2-23 tablet by ity of tablet 00:00: mouth at [place] [address] bedtime. Medical Branch mirtazapine 2022-0 Yes [id number] 45mg Take 1 Univers 45 mg 2-23 tablet by ity of tablet 00:00: mouth at [place] [address] bedtime. Medical Branch mirtazapine 2022-0 Yes [id number] 45mg Take 1 Univers 45 mg 2-23 tablet by ity of tablet 00:00: mouth at [place] [address] bedtime. Medical Branch mirtazapine 2022-0 Yes [id number] 45mg Take 1 Univers 45 mg 2-23 tablet by ity of tablet 00:00: mouth at [place] [address] bedtime. Medical Branch mirtazapine 2022-0 Yes [id number] 45mg Take 1 Univers 45 mg 2-23 tablet by ity of tablet 00:00: mouth at [place] [address] bedtime. Medical Branch mirtazapine 2022-0 Yes [id number] 45mg Take 1 Univers 45 mg 2-23 tablet by ity of tablet 00:00: mouth at [place] [address] bedtime. Medical Branch mirtazapine 2022-0 Yes [id number] 45mg Take 1 Univers 45 mg 2-23 tablet by ity of tablet 00:00: mouth at [place] [address] bedtime. Medical Branch mirtazapine 2022-0 Yes [id number] 45mg Take 1 Univers 45 mg 2-23 tablet by ity of tablet 00:00: mouth at [place] [address] bedtime. Medical Branch mirtazapine 2022-0 Yes [id number] 45mg Take 1 Univers 45 mg 2-23 tablet by ity of tablet 00:00: mouth at [place] [address] bedtime. Medical Branch mirtazapine 2022-0 Yes [id number] 45mg Take 1 Univers 45 mg 2-23 tablet by ity of tablet 00:00: mouth at [place] [address] bedtime. Medical Branch mirtazapine 2022-0 Yes [id number] 45mg Take 1 Univers 45 mg 2-23 tablet by ity of tablet 00:00: mouth at [place] [address] bedtime. Medical Branch mirtazapine 2022-0 Yes [id number] 45mg Take 1 Univers 45 mg 2-23 tablet by ity of tablet 00:00: mouth at [place] [address] bedtime. Medical Branch mirtazapine 2022-0 Yes [id number] 45mg Take 1 Univers 45 mg 2-23 tablet by ity of tablet 00:00: mouth at [place] [address] bedtime. Medical Branch mirtazapine 2022-0 Yes [id number] 45mg Take 1 Univers 45 mg 2-23 tablet by ity of tablet 00:00: mouth at [place] [address] bedtime. Medical Branch mirtazapine 2022-0 Yes [id number] 45mg Take 1 Univers 45 mg 2-23 tablet by ity of tablet 00:00: mouth at [place] [address] bedtime. Medical Branch mirtazapine 2022-0 Yes [id number] 45mg Take 1 Univers 45 mg 2-23 tablet by ity of tablet 00:00: mouth at [place] [address] bedtime. Medical Branch mirtazapine 2022-0 Yes [id number] 45mg Take 1 Univers 45 mg 2-23 tablet by ity of tablet 00:00: mouth at [place] [address] bedtime. Medical Branch mirtazapine 2022-0 Yes [id number] 45mg Take 1 Univers 45 mg 2-23 tablet by ity of tablet 00:00: mouth at [place] [address] bedtime. Medical Branch mirtazapine 2022-0 Yes [id number] 45mg Take 1 Univers 45 mg 2-23 tablet by ity of tablet 00:00: mouth at [place] [address] bedtime. Medical Branch mirtazapine 2022-0 Yes [id number] 45mg Take 1 Univers 45 mg 2-23 tablet by ity of tablet 00:00: mouth at [place] [address] bedtime. Medical Branch mirtazapine 2022-0 Yes [id number] 45mg Take 1 Univers 45 mg 2-23 tablet by ity of tablet 00:00: mouth at [place] [address] bedtime. Medical Branch mirtazapine 2022-0 Yes [id number] 45mg Take 1 Univers 45 mg 2-23 tablet by ity of tablet 00:00: mouth at [place] [address] bedtime. Medical Branch mirtazapine 2022-0 3- No [id number] 45mg Take 1 Univers 45 mg 2-23 04-25 tablet by ity of tablet 00:00: 00:00 mouth at [place] 00 :00 bedtime. Medical Branch mirtazapine 2021-02 Yes [id number] 30mg Take 1 Univers 30 mg 2-21 tablet by ity of tablet 00:00: mouth at [place] [address] bedtime. Medical Branch mirtazapine 2021-02 Yes [id number] 30mg Take 1 Univers 30 mg 2-21 tablet by ity of tablet 00:00: mouth at [place] [address] bedtime. Medical Branch mirtazapine 2021-02 Yes [id number] 30mg Take 1 Univers 30 mg 2-21 tablet by ity of tablet 00:00: mouth at [place] [address] bedtime. Medical Branch mirtazapine 2021-02 Yes [id number] 30mg Take 1 Univers 30 mg 2-21 tablet by ity of tablet 00:00: mouth at [place] [address] bedtime. Medical Branch mirtazapine 2021-02 Yes [id number] 30mg Take 1 Univers 30 mg 2-21 tablet by ity of tablet 00:00: mouth at [place] [address] bedtime. Medical Branch mirtazapine 2021-02 Yes [id number] 30mg Take 1 Univers 30 mg 2-21 tablet by ity of tablet 00:00: mouth at [place] [address] bedtime. Medical Branch mirtazapine 2021-02 Yes [id number] 30mg Take 1 Univers 30 mg 2-21 tablet by ity of tablet 00:00: mouth at [place] [address] bedtime. Medical Branch mirtazapine 2021-02 Yes [id number] 30mg Take 1 Univers 30 mg 2-21 tablet by ity of tablet 00:00: mouth at [place] [address] bedtime. Medical Branch mirtazapine 2021-02 Yes [id number] 30mg Take 1 Univers 30 mg 2-21 tablet by ity of tablet 00:00: mouth at [place] [address] bedtime. [facility] Branch mirtazapine 2021-02- No [id number] 30mg Take 1 Univers 30 mg 2-21 02-23 tablet by ity of tablet 00:00: 00:00 mouth at [place] 00 :00 bedtime. [facility] Branch mirtazapine 2021-02- No [id number] 30mg Take 1 Univers 30 mg 2-21 02-23 tablet by ity of tablet 00:00: 00:00 mouth at [place] 00 :00 bedtime. Medical Branch traMADoL 50 2021-02 Yes 50mg Take 1 Univ ers mg tablet 2-08 tablet by ity o f 00:00: mouth in [place] 00 the Medical morning Branch and 1 tablet at noon and 1 tablet in the evening. traMADoL 50 2021-02 Yes 50mg Take 1 Univ ers mg tablet 2-08 tablet by ity o f 00:00: mouth in [place] 00 the Medical morning Branch and 1 tablet at noon and 1 tablet in the evening. traMADoL 50 2021-02 Yes 50mg Take 1 Univ ers mg tablet 2-08 tablet by ity o f 00:00: mouth in [place] 00 the Medical morning Branch and 1 tablet at noon and 1 tablet in the evening. traMADoL 50 2021-02 Yes 50mg Take 1 Univ ers mg tablet 2-08 tablet by ity o f 00:00: mouth in [place] 00 the Medical morning Branch and 1 tablet at noon and 1 tablet in the evening. traMADoL 50 2021-02 Yes 50mg Take 1 Univ ers mg tablet 2-08 tablet by ity o f 00:00: mouth in [place] 00 the Medical morning Branch and 1 tablet at noon and 1 tablet in the evening. traMADoL 50 2021-02 Yes 50mg Take 1 Univ ers mg tablet 2-08 tablet by ity o f 00:00: mouth in [place] 00 the Medical morning Branch and 1 tablet at noon and 1 tablet in the evening. traMADoL 50 2021-02 Yes 50mg Take 1 Univ ers mg tablet 2-08 tablet by ity o f 00:00: mouth in [place] 00 the Medical morning Branch and 1 tablet at noon and 1 tablet in the evening. traMADoL 50 2021-02 Yes 50mg Take 1 Univ ers mg tablet 2-08 tablet by ity o f 00:00: mouth in [place] 00 the Medical morning Branch and 1 tablet at noon and 1 tablet in the evening. traMADoL 50 2021- Yes 50mg Take 1 Univ ers mg tablet 2-08 tablet by ity o f 00:00: mouth in [place] 00 the Medical morning Branch and 1 tablet at noon and 1 tablet in the evening. traMADoL 50 2021-02 Yes 50mg Take 1 Univ ers mg tablet 2-08 tablet by ity o f 00:00: mouth in [place] 00 the Medical morning Branch and 1 tablet at noon and 1 tablet in the evening. traMADoL 50 2021-02 Yes 50mg Take 1 Univ ers mg tablet 2-08 tablet by ity o f 00:00: mouth in [place] 00 the Medical morning Branch and 1 tablet at noon and 1 tablet in the evening. traMADoL 50 2021-02 Yes 50mg Take 1 Univ ers mg tablet 2-08 tablet by ity o f 00:00: mouth in [place] 00 the Medical morning Branch and 1 tablet at noon and 1 tablet in the evening. traMADoL 50 2021-02 Yes 50mg Take 1 Univ ers mg tablet 2-08 tablet by ity o f 00:00: mouth in [place] 00 the Medical morning Branch and 1 tablet at noon and 1 tablet in the evening. traMADoL 50 2021-02 Yes 50mg Take 1 Univ ers mg tablet 2-08 tablet by ity o f 00:00: mouth in [place] [address] the Medical morning Branch and 1 tablet at noon and 1 tablet in the evening. traMADoL 50 2021-02 Yes 50mg Take 1 Univ ers mg tablet 2-08 tablet by ity o f 00:00: mouth in [place] [address] the Medical morning Branch and 1 tablet at noon and 1 tablet in the evening. traMADoL 50 2021-02 Yes 50mg Take 1 Univ ers mg tablet 2-08 tablet by ity o f 00:00: mouth in [place] [address] the Medical morning Branch and 1 tablet at noon and 1 tablet in the evening. traMADoL 50 2021-02 Yes 50mg Take 1 Univ ers mg tablet 2-08 tablet by ity o f 00:00: mouth in [place] 00 the Medical morning Branch and 1 tablet at noon and 1 tablet in the evening. traMADoL 50 2021-02 Yes 50mg Take 1 Univ ers mg tablet 2-08 tablet by ity o f 00:00: mouth in [place] [address] the Medical morning Branch and 1 tablet at noon and 1 tablet in the evening. traMADoL 50 2021-02 Yes 50mg Take 50 mg Univers mg tablet 2-08 by mouth ity of 00:00: in the [place] [address] morning Medical and 50 mg Branch at noon and 50 mg in the evening. traMADoL 50 2021-02 Yes 50mg Take 50 mg Univers mg tablet 2-08 by mouth ity of 00:00: in the [place] 00 morning Medical and 50 mg Branch at noon and 50 mg in the evening. traMADoL 50 2021-02 Yes 50mg Take 50 mg Univers mg tablet 2-08 by mouth ity of 00:00: in the [place] 00 morning Medical and 50 mg Branch at noon and 50 mg in the evening. traMADoL 50 2021-02 Yes 50mg Take 50 mg Univers mg tablet 2-08 by mouth ity of 00:00: in the [place] 00 morning Medical and 50 mg Branch at noon and 50 mg in the evening. traMADoL 50 2021-02 Yes 50mg Take 50 mg Univers mg tablet 2-08 by mouth ity of 00:00: in the [place] 00 morning Medical and 50 mg Branch at noon and 50 mg in the evening. traMADoL 50 2021-02 Yes 50mg Take 50 mg Univers mg tablet 2-08 by mouth ity of 00:00: in the [place] 00 morning Medical and 50 mg Branch at noon and 50 mg in the evening. traMADoL 50 2021-02 Yes 50mg Take 50 mg Univers mg tablet 2-08 by mouth ity of 00:00: in the [place] morning Medical and 50 mg Branch at noon and 50 mg in the evening. traMADoL 50 2021-02 Yes 50mg Take 50 mg Univers mg tablet 2-08 by mouth ity of 00:00: in the [place] morning Medical and 50 mg Branch at noon and 50 mg in the evening. traMADoL 50 2021-02 Yes 50mg Take 50 mg Univers mg tablet 2-08 by mouth ity of 00:00: in the [place] 00 morning Medical and 50 mg Branch at noon and 50 mg in the evening. traMADoL 50 2021-02 Yes 50mg Take 50 mg Univers mg tablet 2-08 by mouth ity of 00:00: in the [place] 00 morning Medical and 50 mg Branch at noon and 50 mg in the evening. traMADoL 50 2021-02 Yes 50mg Take 50 mg Univers mg tablet 2-08 by mouth ity of 00:00: in the [place] 00 morning Medical and 50 mg Branch at noon and 50 mg in the evening. traMADoL 50 2021-02 Yes 50mg Take 50 mg Univers mg tablet 2-08 by mouth ity of 00:00: in the [place] 00 morning Medical and 50 mg Branch at noon and 50 mg in the evening. traMADoL 50 2021-02 Yes 50mg Take 50 mg Univers mg tablet 2-08 by mouth ity of 00:00: in the [place] 00 morning Medical and 50 mg Branch at noon and 50 mg in the evening. traMADoL 50 2021-02 Yes 50mg Take 50 mg Univers mg tablet 2-08 by mouth ity of 00:00: in the [place] 00 morning Medical and 50 mg Branch at noon and 50 mg in the evening. traMADoL 50 2021-02 Yes 50mg Take 1 Univ ers mg tablet 2-08 tablet by ity o f 00:00: mouth in [place] 00 the Medical morning Branch and 1 tablet at noon and 1 tablet in the evening. traMADoL 50 2021-02 Yes 50mg Take 1 Univ ers mg tablet 2-08 tablet by ity o f 00:00: mouth in [place] 00 the Medical morning Branch and 1 tablet at noon and 1 tablet in the evening. traMADoL 50 2021-02 Yes 50mg Take 1 Univ ers mg tablet 2-08 tablet by ity o f 00:00: mouth in [place] 00 the Medical morning Branch and 1 tablet at noon and 1 tablet in the evening. traMADoL 50 2021-02 No 50mg Take 1 Uni vers mg tablet 2-08 04-25 tablet by ity of 00:00: 00:00 mouth in [place] 00 :00 the Medical morning Branch and 1 tablet at noon and 1 tablet in the evening. mirtazapine 2021-02 Yes [id number] 15mg Take 1 Univers 15 mg 1-21 tablet by ity of tablet 00:00: mouth at [place] [address] bedtime. Medical Branch mirtazapine 2021-02 Yes [id number] 15mg Take 1 Univers 15 mg 1-21 tablet by ity of tablet 00:00: mouth at [place] [address] bedtime. [facility] Branch mirtazapine 2021-02 Yes [id number] 15mg Take 1 Univers 15 mg 1-21 tablet by ity of tablet 00:00: mouth at [place] [address] bedtime. [facility] Branch mirtazapine 2021-02- No [id number] 15mg Take 1 Univers 15 mg 1-21 12-21 tablet by ity of tablet 00:00: 00:00 mouth at [place] 00 :00 bedtime. [facility] Branch mirtazapine 2021-02- No [id number] 15mg Take 1 Univers 15 mg 1-21 12-21 tablet by ity of tablet 00:00: 00:00 mouth at [place] 00 :00 bedtime. Medical Branch vortioxetin 2021-02 Yes [id number] 5mg Take 1 Univers e 0-20 tablet by ity of (TRINTELLIX 00:00: mouth in [place] ) 5 mg Tab 00 the Medical morning. Branch vortioxetin 2021-02 Yes [id number] 5mg Take 1 Univers e 0-20 tablet by ity of (TRINTELLIX 00:00: mouth in [place] ) 5 mg Tab 00 the Medical morning. Branch vortioxetin 2021-02 Yes [id number] 5mg Take 1 Univers e 0-20 tablet by ity of (TRINTELLIX 00:00: mouth in [place] ) 5 mg Tab 00 the Medical morning. Branch vortioxetin 2021-02 Yes [id number] 5mg Take 1 Univers e 0-20 tablet by ity of (TRINTELLIX 00:00: mouth in [place] ) 5 mg Tab 00 the Medical morning. Branch vortioxetin 2021-02 Yes [id number] 5mg Take 1 Univers e 0-20 tablet by ity of (TRINTELLIX 00:00: mouth in [place] ) 5 mg Tab 00 the Medical morning. Branch vortioxetin 2021-02 Yes [id number] 5mg Take 1 Univers e 0-20 tablet by ity of (TRINTELLIX 00:00: mouth in [place] ) 5 mg Tab 00 the Medical morning. Branch vortioxetin 2021-02- No [id number] 5mg Take 1 Univers e 0-20 11-21 tablet by ity of (TRINTELLIX 00:00: 00:00 mouth in [place] ) 5 mg Tab 00 :00 the Medical morning. Branch vortioxetin 2021-02- No [id number] 5mg Take 1 Univers e 0-20 11-21 tablet by ity of (TRINTELLIX 00:00: 00:00 mouth in [place] ) 5 mg Tab 00 :00 the Medical morning. Branch DULoxetine Yes [id number] 20mg Take 1 Univers 20 mg 9-20 capsule by ity of capsule 00:00: mouth in [place] 00 the Medical morning. Branch DULoxetine 2021-0 Yes [id number] 20mg Take 1 Univers 20 mg 9-20 capsule by ity of capsule 00:00: mouth in [place] 00 the Medical morning. Branch DULoxetine 2021-0 Yes [id number] 20mg Take 1 Univers 20 mg 9-20 capsule by ity of capsule 00:00: mouth in [place] 00 the Medical morning. Branch DULoxetine 2021-0 Yes [id number] 20mg Take 1 Univers 20 mg 9-20 capsule by ity of capsule 00:00: mouth in [place] 00 the Medical morning. Branch DULoxetine 2021-0 Yes [id number] 20mg Take 1 Univers 20 mg 9-20 capsule by ity of capsule 00:00: mouth in [place] 00 the Medical morning. Branch DULoxetine 2021-0 2- No [id number] 20mg Take 1 Univers 20 mg 9-20 10-20 capsule by ity of capsule 00:00: 00:00 mouth in [place] 00 :00 the Medical morning. Branch DULoxetine 2021-0 2- No [id number] 20mg Take 1 Univers 20 mg 9-20 10-20 capsule by ity of capsule 00:00: 00:00 mouth in [place] 00 :00 the Medical morning. Branch gabapentin 2021-0 Yes [id number] 300mg Take 1 Univers 300 mg 8-23 capsule by ity of capsule 00:00: mouth at [place] [address] bedtime. Medical Branch gabapentin 2021-0 Yes [id number] 300mg Take 1 Univers 300 mg 8-23 capsule by ity of capsule 00:00: mouth at [place] [address] bedtime. Medical Branch gabapentin 2-0 Yes [id number] 300mg Take 1 Univers 300 mg 8-23 capsule by ity of capsule 00:00: mouth at [place] 00 bedtime. Medical Branch gabapentin 2-0 2022- No [id number] 300mg Take 1 Univers 300 mg 8-23 09-20 capsule by ity of capsule 00:00: 00:00 mouth at [place] 00 :00 bedtime. Medical Branch gabapentin 2-0 2022- No [id number] 300mg Take 1 Univers 300 mg 8-23 09-20 capsule by ity of capsule 00:00: 00:00 mouth at [place] 00 :00 bedtime. Medical Branch mirtazapine 2022-0 2022- No 30mg Take 30 mg Univers 30 mg 8-09 20-23 by mouth ity of tablet 00:00: 00:00 in the [place] 00 :00 morning. Medical Branch mirtazapine 2021-0 2022- No 30mg Take 30 mg Univers 30 mg 09-20 by mouth ity of tablet 00:00: 00:00 in the [place] 00 :00 morning. Medical Branch sertraline 2020-0 [...] 0.9% 6-09 (Same as: l 18:36: BD [place] 00 Posiflush) Saline No Notes: Memoria Flush 0.9% 6-09 (Same as: l 18:36: BD [place] 00 Posiflush) Saline No Notes: Memoria Flush 0.9% 6-09 (Same as: l 18:36: BD [place] 00 Posiflush) Saline No Notes: Memoria Flush 0.9% 6-09 (Same as: l 18:36: BD [place] 00 Posiflush) Saline No Notes: Memoria Flush 0.9% 6-09 (Same as: l 18:36: BD [place] 00 Posiflush) Saline No Notes: Memoria Flush 0.9% 6-09 (Same as: l 18:36: BD [place] 00 Posiflush) Saline No Notes: Memoria Flush 0.9% 6-09 (Same as: l 18:36: BD [place] 00 Posiflush) Saline No Notes: Memoria Flush 0.9% 6-09 (Same as: l 18:36: BD [place] 00 Posiflush) Saline No Notes: Memoria Flush 0.9% 6-09 (Same as: l 18:36: BD [place] 00 Posiflush) Saline No Notes: Memoria Flush 0.9% 6-09 (Same as: l 18:36: BD [place] 00 Posiflush) Saline No Notes: Memoria Flush 0.9% 6-09 (Same as: l 18:36: BD [place] 00 Posiflush) Saline No Notes: Memoria Flush 0.9% 6-09 (Same as: l 18:36: BD [place] 00 Posiflush) Saline No Notes: Memoria Flush 0.9% 6-09 (Same as: l 18:36: BD [place] 00 Posiflush) Saline No Notes: Memoria Flush 0.9% 6-09 (Same as: l 18:36: BD [place] 00 Posiflush) Saline No Notes: Memoria Flush [...] 0.9% 6-09 (Same as: l 18:36: BD [place] 00 Posiflush) Saline No Notes: Memoria Flush 0.9% 6-09 (Same as: l 18:36: BD [place] 00 Posiflush) Saline No Notes: Memoria Flush 0.9% 6-09 (Same as: l 18:36: BD [place] 00 Posiflush) Saline No Notes: Memoria Flush 0.9% 6-09 (Same as: l 18:36: BD [place] 00 Posiflush) Saline No Notes: Memoria Flush 0.9% 6-09 (Same as: l 18:36: BD [place] 00 Posiflush) Saline No Notes: Memoria Flush 0.9% 6-09 (Same as: l 18:36: BD [place] 00 Posiflush) Saline No Notes: Memoria Flush 0.9% 6-09 (Same as: l 18:36: BD [place] 00 Posiflush) Saline No Notes: Memoria Flush 0.9% 6-09 (Same as: l 18:36: BD [place] 00 Posiflush) Saline No Notes: Memoria Flush 0.9% 6-09 (Same as: l 18:36: BD [place] 00 Posiflush) Saline No Notes: Memoria Flush 0.9% 6-09 (Same as: l 18:36: BD [place] 00 Posiflush) Saline No Notes: Memoria Flush 0.9% 6-09 (Same as: l 18:36: BD [place] 00 Posiflush) Saline No Notes: Memoria Flush 0.9% 6-09 (Same as: l 18:36: BD [place] 00 Posiflush) Vital Signs Vital Name Observation Time Observation Value Comments Source Systolic blood 2022-07-16 14:11:00 145 mm[Hg] Univer sity of pressure [place] [facility] Diastolic blood 2022-07-16 14:11:00 73 mm[Hg] Unive rsity of pressure [facility] Heart rate 2022-07-16 14:11:00 62 /min Universi ty of [facility] Body temperature 2022-07-16 14:11:00 36.33 [place] [facility] ers[facility] Branch Respiratory rate 2022-07-16 14:11:00 20 /min Univ ersity of [facility] Oxygen saturation in 2022-07-16 14:11:00 100 /min University of Arterial blood by [place] [employer] Pulse oximetry Branch WEIGHT 2022-07-12 06:00:00 86 kg WEIGHT 2022-07-12 06:00:00 86 kg Systolic blood 2022-07-11 15:10:00 117 mm[Hg] Univer sity of pressure [place] [facility] Diastolic blood 2022-07-11 15:10:00 68 mm[Hg] Unive rsity of pressure [place] [facility] [place] Heart rate 2022-07-11 15:10:00 74 /min [facility]i ty of [facility] Body temperature 2022-07-11 15:10:00 36.94 [place] [facility] [place] [facility] Respiratory rate 2022-07-11 15:10:00 18 /min [facility] [place] [facility] Body weight 2022-07-11 15:10:00 90.719 kg [facility] [place] [facility] BMI 2022-07-11 15:10:00 32.28 kg/m2 [facility] of [facility] Oxygen saturation in 2022-07-11 15:10:00 98 /min University of Arterial blood by [place] [employer] Pulse oximetry Branch Systolic blood 2022-07-11 11:20:00 133 mm[Hg] Univer sity of pressure [place] [facility] Diastolic blood 2022-07-11 11:20:00 69 mm[Hg] Unive rsity of pressure [place] [facility] Heart rate 2022-07-11 11:20:00 78 /min [facility] [place] [facility] Respiratory rate 2022-07-11 11:20:00 18 /min [facility] [place] [facility] Oxygen saturation in 2022-07-11 11:20:00 99 /min [facility] of Arterial blood by [facility]ordon Pulse oximetry Branch Body temperature 2022-07-11 09:24:00 36.83 [place] [facility] [place] [facility] Body weight 2022-07-11 09:24:00 90.719 kg [facility] [place] [facility] BMI 2022-07-11 09:24:00 32.28 kg/m2 [facility] [place] [facility] Systolic blood 2022-07-08 18:24:00 130 mm[Hg] Univer sity of pressure [place] [facility] Diastolic blood 2022-07-08 18:24:00 57 mm[Hg] Unive rsity of pressure [place] [facility] Heart rate 2022-07-08 18:24:00 87 /min [facility] [place] [facility] Body temperature 2022-07-08 18:24:00 36.72 [place] [facility] [place] [facility] Respiratory rate 2022-07-08 18:24:00 18 /min [facility] [place] [facility] Body weight 2022-07-08 18:24:00 90.719 kg [facility] [place] [facility] BMI 2022-07-08 18:24:00 32.28 kg/m2 [facility] [place] [facility] Oxygen saturation in 2022-07-08 18:24:00 97 /min [facility] of Arterial blood by [facility] Pulse oximetry Branch Systolic blood 2022-07-05 14:00:00 155 mm[Hg] Univer sity of pressure [place] [facility] Diastolic blood 2022-07-05 14:00:00 80 mm[Hg] Unive rsity of pressure [place] [facility] Heart rate 2022-07-05 14:00:00 76 /min [facility] [place] [facility] Body temperature 2022-07-05 14:00:00 37.56 [place] [facility] [place] [facility] Respiratory rate 2022-07-05 14:00:00 16 /min [facility] [place] [facility] Oxygen saturation in 2022-07-05 14:00:00 98 /min [facility] of Arterial blood by [facility] Pulse oximetry Branch Body weight 2022-07-05 10:49:00 90.719 kg [facility] [place] [facility] BMI 2022-07-05 10:49:00 32.28 kg/m2 [facility] [place] [facility] HEIGHT 2022-06-21 11:16:00 167.6 cm WEIGHT 2022-06-21 11:16:00 87.181 kg HEIGHT 2022-06-21 11:16:00 167.6 cm WEIGHT 2022-06-21 11:16:00 87.181 kg Systolic blood 2022-06-16 16:05:00 112 mm[Hg] Univer sity of pressure [place] [facility] Diastolic blood 2022-06-16 16:05:00 72 mm[Hg] Unive rsity of pressure [place] [facility] [place] Heart rate 2022-06-16 16:05:00 90 /min [facility] [place] [facility] [place] Body temperature 2022-06-16 16:05:00 36.72 [place] [facility] Branch Respiratory rate 2022-06-16 16:05:00 16 /min [facility] [place] [facility] Body height 2022-06-16 16:05:00 167.6 cm [facility] [place] [facility] Body weight 2022-06-16 16:05:00 91.173 kg [facility] [place] [facility] BMI 2022-06-16 16:05:00 32.44 kg/m2 [facility] [place] [facility] Oxygen saturation in 2022-06-16 16:05:00 100 /min [facility] of Arterial blood by [facility] Pulse oximetry Branch Systolic blood 2022-06-07 18:25:00 140 mm[Hg] Univer sity of pressure [place] [facility] Diastolic blood 2022-06-07 18:25:00 74 mm[Hg] Unive rsity of pressure [place] [facility] Heart rate 2022-06-07 18:25:00 70 /min [facility] [place] [facility] Body temperature 2022-06-07 18:25:00 36.44 [place] [facility] Respiratory rate 2022-06-07 18:25:00 20 /min Univ ersity of [facility] Branch Oxygen saturation in 2022-06-07 18:25:00 100 /min [facility] of Arterial blood by [facility]ordon Pulse oximetry Branch Body weight 2022-05-27 08:00:00 86.456 kg [facility] [place] [facility] BMI 2022-05-27 08:00:00 30.76 kg/m2 [facility] [place] [facility] Body height 2022-05-27 02:20:00 167.6 cm [facility] [place] [facility] Systolic blood 2022-06-03 10:48:00 136 mm[Hg] Univer sity of pressure [place] [facility] Diastolic blood 2022-06-03 10:48:00 67 mm[Hg] Unive rsity of pressure [place] [facility] Heart rate 2022-06-03 10:48:00 80 /min [facility] [place] [facility] Body temperature 2022-06-03 10:48:00 36.28 [place] [place] [facility] Respiratory rate 2022-06-03 10:48:00 18 /min [facility] [place] [facility] Oxygen saturation in 2022-06-03 10:48:00 97 /min [facility] of Arterial blood by [facility] Pulse oximetry Branch Body weight 2022-05-27 08:00:00 86.456 kg [facility] [place] [facility] BMI 2022-05-27 08:00:00 30.76 kg/m2 [facility] [place] [facility] Body height 2022-05-27 02:20:00 167.6 cm [facility] [place] [facility] Systolic blood 2022-05-31 01:00:00 116 mm[Hg] Univer sity of pressure [place] [facility] Diastolic blood 2022-05-31 01:00:00 68 mm[Hg] Unive rsity of pressure [place] [facility] Heart rate 2022-05-31 01:00:00 79 /min [facility] [place] [facility] Body temperature 2022-05-31 01:00:00 37.78 [place] [facility] [place] [facility] Respiratory rate 2022-05-31 01:00:00 14 /min [facility] [place] [facility] Oxygen saturation in 2022-05-31 01:00:00 96 /min [facility] of Arterial blood by [facility]ordon Pulse oximetry Branch Body weight 2022-05-27 08:00:00 86.456 kg [facility] [place] [facility] BMI 2022-05-27 08:00:00 30.76 kg/m2 [facility] [place] [facility] Body height 2022-05-27 02:20:00 167.6 cm [facility] [place] [facility] Systolic blood 2022-05-29 15:15:00 138 mm[Hg] Univer sity of pressure [place] [facility] Diastolic blood 2022-05-29 15:15:00 81 mm[Hg] Unive rsity of pressure [place] [facility] Heart rate 2022-05-29 15:15:00 62 /min [facility] [place] [facility] Body temperature 2022-05-29 15:15:00 36.39 [place] [facility] [place] [facility] Respiratory rate 2022-05-29 15:15:00 18 /min [facility] [place] [facility] Oxygen saturation in 2022-05-29 15:15:00 100 /min University of Arterial blood by [place] [employer] gordon Pulse oximetry Branch Body weight 2022-05-27 08:00:00 86.456 kg [facility] [place] [facility] BMI 2022-05-27 08:00:00 30.76 kg/m2 [facility] [place] [facility] Body height 2022-05-27 02:20:00 167.6 cm [facility] [place] [facility] Systolic blood 2022-05-23 21:38:00 137 mm[Hg] Univer sity of pressure [place] [facility] Diastolic blood 2022-05-23 21:38:00 89 mm[Hg] Unive rsity of pressure [place] [facility] Heart rate 2022-05-23 21:38:00 100 /min [facility] [place] [facility] Body temperature 2022-05-23 21:38:00 36.67 [place] [facility] [place] [facility] Respiratory rate 2022-05-23 21:38:00 20 /min [facility] [place] [facility] Body weight 2022-05-23 21:38:00 81.647 kg [facility] [place] [facility] BMI 2022-05-23 21:38:00 29.05 kg/m2 [facility] [place] [facility] Oxygen saturation in 2022-05-23 21:38:00 100 /min [facility] Arterial blood by [place] [facility] Pulse oximetry Branch Systolic blood 2022-05-23 10:00:00 144 mm[Hg] Univer sity of pressure [place] [facility] Diastolic blood 2022-05-23 10:00:00 79 mm[Hg] Unive rsity of pressure [place] [facility] Heart rate 2022-05-23 10:00:00 77 /min [facility] [place] [facility] Respiratory rate 2022-05-23 10:00:00 14 /min [facility] [place] [facility] Oxygen saturation in 2022-05-23 10:00:00 96 /min [facility] of Arterial blood by [place] [facility] Pulse oximetry Branch Body temperature 2022-05-23 08:49:00 36.72 [place] [facility] [place] [facility] Body height 2022-05-23 08:49:00 167.6 cm [facility] [place] [facility] Body weight 2022-05-23 08:49:00 81.647 kg [facility] [place] [facility] BMI 2022-05-23 08:49:00 29.05 kg/m2 [facility] [place] [facility] Systolic blood 2022-05-19 14:32:00 153 mm[Hg] Univer sity of pressure [place] [facility] Diastolic blood 2022-05-19 14:32:00 82 mm[Hg] Unive rsity of pressure [place] [facility] Heart rate 2022-05-19 14:31:00 86 /min [facility] [place] [facility] Body temperature 2022-05-19 14:31:00 36.11 [place] [facility] [place] [facility] Body height 2022-05-19 14:31:00 167.6 cm [facility] [place] [facility] Body weight 2022-05-19 14:31:00 87.544 kg [facility] [place] [facility] BMI 2022-05-19 14:31:00 31.15 kg/m2 [facility] [place] [facility] Oxygen saturation in 2022-05-19 14:31:00 97 /min [facility] of Arterial blood by [place] [facility] Pulse oximetry Branch Systolic blood 2022-05-03 14:51:00 136 mm[Hg] Univer sity of pressure [place] [facility] Diastolic blood 2022-05-03 14:51:00 80 mm[Hg] Unive rsity of pressure [place] [facility] Heart rate 2022-05-03 14:51:00 68 /min [facility] [place] [facility] Body height 2022-05-03 14:51:00 167.6 cm [facility] [place] [facility] Body weight 2022-05-03 14:51:00 84.369 kg [facility] [place] [facility] BMI 2022-05-03 14:51:00 30.02 kg/m2 [facility] [place] [facility] Systolic blood 2022-04-13 15:41:00 128 mm[Hg] Univer sity of pressure [place] [facility] Diastolic blood 2022-04-13 15:41:00 88 mm[Hg] Unive rsity of pressure [facility] Branch Heart rate 2022-04-13 15:41:00 88 /min [facility]i ty [facility] [place] [facility] Respiratory rate 2022-04-13 15:41:00 18 /min Univ ersity of [facility] Body height 2022-04-13 15:41:00 167.6 cm [facility] [place] [facility] Body weight 2022-04-13 15:41:00 86.047 kg [facility] [place] [facility] BMI 2022-04-13 15:41:00 30.62 kg/m2 [facility] ty of [facility] Oxygen saturation in 2022-04-13 15:41:00 96 /min University of Arterial blood by [facility] Pulse oximetry Branch Systolic blood 2022-04-07 16:41:00 162 mm[Hg] Univer sity of pressure [facility] Branch Diastolic blood 2022-04-07 16:41:00 89 mm[Hg] Unive rsity of pressure [facility] Heart rate 2022-04-07 16:41:00 81 /min [facility] [place] [facility] Body weight 2022-04-07 16:39:00 86.183 kg [facility] [place] [facility] BMI 2022-04-07 16:39:00 30.67 kg/m2 [facility] [place] [facility] Systolic blood 2022-02-02 15:24:00 133 mm[Hg] Univer sity of pressure [place] [facility] Diastolic blood 2022-02-02 15:24:00 82 mm[Hg] Unive rsity of pressure [facility] Heart rate 2022-02-02 15:24:00 82 /min [facility] [place] [facility] Body height 2022-02-02 15:24:00 167.6 cm [facility] [place] [facility] [place] Body weight 2022-02-02 15:24:00 83.008 kg [facility] [place] [facility] BMI 2022-02-02 15:24:00 29.54 kg/m2 [facility] Systolic blood 2022-01-03 15:07:00 129 mm[Hg] Univer sity of pressure [place] [facility] Diastolic blood 2022-01-03 15:07:00 82 mm[Hg] Unive rsity of pressure [facility] Heart rate 2022-01-03 15:07:00 76 /min [facility]i ty of [facility] Body temperature 2022-01-03 15:07:00 36.83 [place] [facility] [place] [facility] Body height 2022-01-03 15:07:00 167.6 cm [facility]i [facility] of [facility] Body weight 2022-01-03 15:07:00 83.462 kg [facility] of [facility] BMI 2022-01-03 15:07:00 29.70 kg/m2 [facility] Systolic blood 2021-12-08 15:22:00 144 mm[Hg] Univer sity of pressure [facility] Diastolic blood 2021-12-08 15:22:00 84 mm[Hg] Unive rsity of pressure [facility] Heart rate 2021-12-08 15:18:00 70 /min [facility]i ty [facility] Body height 2021-12-08 15:18:00 167.6 cm [facility] [place] [facility] Body weight 2021-12-08 15:18:00 83.326 kg [facility] [place] [facility] BMI 2021-12-08 15:18:00 29.65 kg/m2 [facility] Oxygen saturation in 2021-12-08 15:18:00 100 /min University Arterial blood by [facility] Pulse oximetry Branch Systolic blood 2021-12-02 16:05:00 130 mm[Hg] Univer sity of pressure [facility] Branch Diastolic blood 2021-12-02 16:05:00 78 mm[Hg] Unive rsity of pressure [facility] Heart rate 2021-12-02 16:05:00 61 /min [facility]i ty [facility] Body temperature 2021-12-02 16:05:00 37.22 [facility] [facility] Body height 2021-12-02 16:05:00 167.6 cm [facility] Body weight 2021-12-02 16:05:00 84.369 kg [facility] BMI 2021-12-02 16:05:00 30.02 kg/m2 [facility] Systolic blood 2021-11-02 14:34:00 133 mm[Hg] [facility] Diastolic blood 2021-11-02 14:34:00 79 mm[Hg] [facility] Heart rate 2021-11-02 14:34:00 80 /min [facility] Body height 2021-11-02 14:34:00 167.6 cm [facility] Body weight 2021-11-02 14:34:00 84.823 kg [facility] BMI 2021-11-02 14:34:00 30.18 kg/m2 [facility] Systolic blood 2021-10-05 19:18:00 152 mm[Hg] [facility] Diastolic blood 2021-10-05 19:18:00 87 mm[Hg] [facility] Heart rate 2021-10-05 19:18:00 83 /min [facility] Body temperature 2021-10-05 19:18:00 37.33 Nita [facility] Body height 2021-10-05 19:18:00 167.6 cm [facility] Body weight 2021-10-05 19:18:00 86.637 kg [facility] BMI 2021-10-05 19:18:00 30.83 kg/m2 [facility] Oxygen saturation in 2021-10-05 19:18:00 99 /min Arrey of Arterial blood by [facility] Pulse oximetry Branch Heart rate 2022-06-23 15:28:08 91 /min [facility] Respiratory rate 2022-06-23 15:28:08 18 /min [facility] Oxygen saturation in 2022-06-23 15:28:08 100 /min [facility] Arterial blood by Medical nter Pulse oximetry Body temperature 2022-06-23 15:28:04 36.89 Nita [facility] Systolic blood 2022-06-23 15:27:00 144 mm[Hg] [facility] Diastolic blood 2022-06-23 15:27:00 79 mm[Hg] [facility] Body height 2022-06-21 11:16:00 167.6 cm [facility] Body weight 2022-06-21 11:16:00 87.181 kg [facility] BMI 2022-06-21 11:16:00 31.02 kg/m2 [facility] Initial DRG Weight: 2020-02-15 05:04:52 [...] Temperature 2020-02-15 05:04:52 36.6\\S\\97.9 Weight 2020-02-15 05:04:52 45023\\S\\2627.91 Weight Measurement 2020-02-15 05:04:52 Built in Bedscale [...] Temperature 2020-02-10 08:28:02 36.6\\S\\97.9 Weight 2020-02-10 08:28:02 09644\\S\\2627.91 Weight Measurement 2020-02-10 08:28:02 Built in Bedscale [...] Temperature 2020-02-06 14:55:36 36.6\\S\\97.9 Weight 2020-02-06 14:55:36 30016\\S\\2627.91 Weight Measurement 2020-02-06 14:55:36 Built in Bedscale Method Initial DRG Weight: 2020-02-06 14:55:36 0.8372 Working DRG Weight: 2020-02-06 14:55:36 0.8372 Initial DRG Weight: 2020-02-06 14:55:35 0.8372 Working [...] Temperature 2020-02-06 12:25:52 36.7\\S\\98.1 Weight 2020-02-06 12:25:52 16738\\S\\2627.91 Weight Measurement 2020-02-06 12:25:52 Built in Software Technologycale Method Initial DRG Weight: 2020-02-04 14:40:56 0.8372 [...] Temperature 2020-02-04 14:40:56 36.3\\S\\97.3 Weight 2020-02-04 14:40:56 13249\\S\\2627.91 Weight Measurement 2020-02-04 14:40:56 Built in Bedscale [...] Temperature 2020-02-04 12:53:01 36.3\\S\\97.3 Weight 2020-02-04 12:53:01 34438\\S\\2627.91 Weight Measurement 2020-02-04 12:53:01 Built in Bedscale [...] Temperature 2020-02-04 10:07:56 36.7\\S\\98.1 Weight 2020-02-04 10:07:56 62396\\S\\2627.91 Weight Measurement 2020-02-04 10:07:56 Built in Bedscale [...] Temperature 2020-02-04 06:31:28 36.7\\S\\98.1 Weight 2020-02-04 06:31:28 98857\\S\\2627.91 Weight Measurement 2020-02-04 06:31:28 Built in Bedscale [...] Temperature 2020-02-03 15:40:21 37.1\\S\\98.8 Weight 2020-02-03 15:40:21 41276\\S\\2627.91 Weight Measurement 2020-02-03 15:40:21 Built in Bedscale [...] Temperature 2020-02-03 13:59:33 37.1\\S\\98.8 Weight 2020-02-03 13:59:33 51619\\S\\2627.91 Weight Measurement 2020-02-03 13:59:33 Built in Bedscale [...] Temperature 2020-02-03 13:57:29 37.1\\S\\98.8 Weight 2020-02-03 13:57:29 64181\\S\\2627.91 Weight Measurement 2020-02-03 13:57:29 Built in Bedscale Method WEIGHT 2020-02-03 05:44:00 74.5 kg HEIGHT 2020-02-03 05:00:00 167.64 cm Respitory Rate 2014-07-22 20:45:00 [facility] Heart Rate 2014-07-22 20:45:00 [facility] Systolic (mm Hg) 2014-07-22 20:45:00 Jack rial [place] Diastolic (mm Hg) 2014-07-22 20:45:00 [facility] Height 2014-07-22 17:53:00 167.64 cm [facility] Weight 2014-07-22 17:53:00 [facility] [place] BMI Calculated 2014-07-22 17:53:00 [facility] Respitory Rate 2014-07-22 17:53:00 [facility] Temperature Oral (F) 2014-07-22 17:53:00 97.9 F [facility] Heart Rate 2014-07-22 17:53:00 [facility] Systolic (mm Hg) 2014-07-22 17:53:00 Jack rial [facility] Diastolic (mm Hg) 2014-07-22 17:53:00 Mem orial [place] Procedures Procedure Date / Time Performing Clinician Source Performed COMP. METABOLIC PANEL 2022-07-11 10:41:00 Ángel Murray [facility] ([id number]) [facility] CBC WITH DIFF 2022-07-11 10:41:00 Ángel Murray [facility] POCT GLUCOSE (AUTOMATED) 2022-07-11 09:26:00 Doctor Unaigned, [facility] CONSENT/REFUSAL FOR 2022-07-11 04:57:15 Doctor Unassigned, [facility] DIAGNOSIS AND TREATMENT [facility] CONSENT/REFUSAL FOR 2022-07-08 18:20:06 Doctor Unassigned, [facility] DIAGNOSIS AND [facility]REATMENT [facility] 2022-07-05 13:22:00 Hilda Perez [facility] XR TIBIA FIBULA 2 VW 2022-07-05 13:16:57 Hilda Perez [facility] RIGHT Medical Branch COMP. METABOLIC PANEL 2022-07-05 12:59:00 Hilda Perez [facility] ([id number]) Medical [place] US LOWER EXTREMITY VEIN 2022-07-05 12:47:00 Hilda Perez [facility] WITH COMPRESSION RIGHT Medical [place] (ONLY FOR RULE OUT DVT) TROPONIN I 2022-07-05 11:49:00 Hilda Perez [facility] CBC WITH DIFF 2022-07-05 11:49:00 Hilda Perez [facility] N-TERMINAL PRO-BNP 2022-07-05 11:49:00 Hilda Perez [facility] US RENAL COMPLETE 2022-06-23 16:47:00 [facility] W/[facility] & AUTO 2022-06-23 05:27:00 Kendra [facility] DIFFERENTIAL [place] CBC W/PLT COUNT & AUTO 2022-06-23 05:27:00 [facility] DIFFERENTIAL [place] US ABDOMEN LIMITED 2022-06-22 16:17:00 Fabienne [facility] BASIC METABOLIC PANEL 2022-06-22 03:48[facility]22-06-22 03:48[facility] HEPATIC FUNCTION PANEL 2022-06-22 03:48:00 [facility] W/[facility]T [facility] & AUTO 2022-06-22 03:48:00 Fabienne [facility] PROTEIN ELECTROPHORESIS, 2022-06-22 03:48:00 Fabienne [facility] IRON, TIBC, % SAT. 2022-06-22 03:48:00 Fabienne [facility] (WITHOUT FERRITIN) [place] VITAMIN B12 2022-06-22 03:48:00 Fabienne [facility] FERRITIN 2022-06-22 03:48:00 [facility] HEPARIN ANTIBODY 2022-06-22 03:48:00 [facility] LACTATE DEHYDROGENASE 2022-06-22 03:48:00 [facility] HAPTOGLOBIN 2022-06-22 03:48:00 [facility] [place] RETICULOCYTE COUNT 2022-06-22 03:48:00 [facility] Kristy [place] SERUM IMMUNOTYPING 2022-06-22 03:48:00 Fabienne [facility] SEROTONIN RELEASE ASSAY 2022-06-22 03:48:00 Fabienne [facility] CBC W/PLT COUNT & AUTO 2022-06-22 03:48:00 Fabienne [facility] URINE PROTEIN 2022-06-21 16:38:00 Fabienne [facility] ELECTROPHORESIS, RANDOM Center SARS-COV2/RT-PCR ([facility] & 2022-06-21 11:14:00 Fabienne [facility] REF LABS) Center COMPREHENSIVE METABOLIC 2022-06-21 11:12:00 Fabienne [facility] PANEL Center PROTHROMBIN TIME/INR 2022-06-21 11:12:00 Fabienne [facility] CBC W/PLT COUNT & AUTO 2022-06-21 11:12:00 Fabienne [facility] CBC W/PLT COUNT & AUTO 2022-06-21 11:12:00 Fabienne [facility] INSURANCE CORRESPONDENCE 2022-06-21 05:01:00 Doctor Unassigned, [facility] Name Medical Branch PHOSPHORUS 2022-06-07 09:16:00 [facility] MAGNESIUM 2022-06-07 09:16:00 [facility] Branch BASIC METABOLIC PANEL 2022-06-07 09:16:00 Jorge L De Leon [facility] (NA, K, CL, CO2, GLUCOSE, Faustino Medica l Branch BUN, CREATININE, CA) PHOSPHORUS 2022-06-05 11:13:00 [facility] [place] MAGNESIUM 2022-06-05 11:13:00 Prajapati [facility] [place] BASIC METABOLIC PANEL 2022-06-05 11:13:00 Prajapati [facility] (NA, K, CL, CO2, GLUCOSE, Rod, Juanpablo Medica l Branch BUN, CREATININE, CA) [place] CBC WITH DIFF 2022-06-05 11:13:00 [facility] [place] PHOSPHORUS 2022-06-05 11:13:00 Prajapati [facility] [place] MAGNESIUM 2022-06-05 11:13:00 Prajapati [facility] [place] BASIC METABOLIC PANEL 2022-06-05 11:13:00 Prajapati [facility] (NA, K, CL, CO2, GLUCOSE, Rod, Juanpablo Medica l Branch BUN, CREATININE, CA) [place] CBC WITH DIFF 2022-06-05 11:13:00 [facility] [place] CT THORAX W CONTRAST 2022-06-05 01:36:13 [facility] CT THORAX W CONTRAST 2022-06-05 01:36:13 [facility] ACTIVATED PARTIAL 2022-06-04 18:00:00 [facility] 2022-06-04 18:00:[address] [facility] ACTIVATED PARTIAL 2022-06-04 14:21:00 Tsukagoshi, [facility] ACTIVATED PARTIAL 2022-06-04 14:21:[address] [facility] XR KUB 2022-06-04 09:32:00 Dannie [facility] XR KUB 2022-06-04 09:32:00 Dannie [facility] XR KUB 2022-06-04 06:45:00 Dannie, [facility] XR KUB 2022-06-04 06:45:00 Dannie [facility] HIT - AB 2022-06-04 06:14:00 Dannie [facility] EXTRA SST HOLD FOR ARUP 2022-06-04 06:14:[address] [facility] HIT - AB 2022-06-04 06:14:00 Dannie [facility] EXTRA SST HOLD FOR ARUP 2022-06-04 06:14:[address] [facility] XR CHEST 1 VW 2022-06-04 05:23:00 Dannie [facility] XR CHEST 1 VW 2022-06-04 05:23:00 Dannie [facility] TROPONIN I 2022-06-04 04:51:00 Dannie [facility] HEPATIC FUNCTION PANEL 2022-06-04 04:51:00 Dannie Armando [facility] ([id number]) (ALB,T.PRO,BILI Medical Branch T,BU/BC,ALT,AST,ALK PHOS) BASIC METABOLIC PANEL 2022-06-04 04:51:00 Armando Pandey [facility] (NA, K, CL, CO2, GLUCOSE, Medica l Branch BUN, CREATININE, CA) CBC WITH DIFF 2022-06-04 04:51:00 Dannie [facility] ACTIVATED PARTIAL 2022-06-04 04:51:00 Andreea [facility] TROPONIN I 2022-06-04 04:51:00 Dannie [facility] HEPATIC FUNCTION PANEL 2022-06-04 04:51:00 [facility]ando [facility] ([id number]) (ALB,T.PRO,BILI Medical Branch T,BU/BC,ALT,AST,ALK PHOS) BASIC METABOLIC PANEL 2022-06-04 04:51:00 [facility] (NA, K, CL, CO2, GLUCOSE, Medica l Branch BUN, CREATININE, CA) CBC WITH DIFF 2022-06-04 04:51:00 Armando Pandey [facility] ACTIVATED PARTIAL 2022-06-04 04:51:00 Andreea [facility] HB ECG ROUTINE & RHYTHM 2022-06-04 04:43:15 Armando Pandey [facility] HB ECG ROUTINE & RHYTHM 2022-06-04 04:43:15 Armando Pandey [facility] ACTIVATED PARTIAL 2022-06-03 20:52:[address] [facility] ACTIVATED PARTIAL 2022-06-03 20:52:[address] [facility] FL TIME OR 2022-06-03 17:21:00 [facility] (NON-REPORTABLE) [facility] 2022-06-03 17:21:00 [facility] (NON-REPORTABLE) [facility] ABG+COOX+NA+K+GLU+CA2+ 2022-06-03 16:52:00 Allan [facility] ABG+COOX+NA+K+GLU+CA2+ 2022-06-03 16:52:00 Allan [facility] SURGICAL PATHOLOGY EXAM 2022-06-03 15:42:00 Lawrence Peterson [facility] ABG+COOX+NA+K+GLU+CA2+ 2022-06-03 15:36:00 Allan [facility] ABG+COOX+NA+K+GLU+CA2+ 2022-06-03 15:36:00 [facility] HB ABO GROUPING 2022-06-03 13:05:00 Vishnu Zapien [facility] HB ABO GROUPING 2022-06-03 13:05:00 Vishnu Zapien [facility] INFERIOR VENA CAVA FILTER 2022-06-03 12:00:00 Lawrence Peterson [facility] VENOUS THROMBECTOMY 2022-06-03 12:00:00 Lawrence Peterson [facility] ANGIOPLASTY 2022-06-03 12:00:00 Lawrence Peterson [facility] VASCULAR STENTING 2022-06-03 12:00:00 Lawrence Peterson [facility] INFERIOR VENA CAVA FILTER 2022-06-03 12:00:00 Lawrence Peterson [facility] VENOUS THROMBECTOMY 2022-06-03 12:00:00 Lawrence Peterson [facility] ANGIOPLASTY 2022-06-03 12:00:00 Lawrence Peterson [facility] VASCULAR STENTING 2022-06-03 12:00:00 Lawrence Peterson [facility] PHOSPHORUS 2022-06-03 10:34:00 [facility] [place] MAGNESIUM 2022-06-03 10:34:00 [facility] [place] BASIC METABOLIC PANEL 2022-06-03 10:34:00 Prajapatiricardo denny cielo [facility] (NA, K, CL, CO2, GLUCOSE, Rod, [facility] BUN, CREATININE, CA) [place] CBC WITH DIFF 2022-06-03 10:34:00 [facility] [place] ACTIVATED PARTIAL 2022-06-03 10:34:00 Joseph [facility]US 2022-06-03 10:34:00 [facility] [place] MAGNESIUM 2022-06-03 10:34:00 [facility] [place] BASIC METABOLIC PANEL 2022-06-03 10:34:00 Prajapati [facility] (NA, K, CL, CO2, GLUCOSE, Rod, [place] [facility] BUN, CREATININE, CA) [place] CBC WITH DIFF 2022-06-03 10:34:00 Prajapati [facility] [place] ACTIVATED PARTIAL 2022-06-03 10:34:00 Andreea [facility] ACTIVATED PARTIAL 2022-06-02 22:26:00 [facility] 2022-06-02 22:26[facility]00 [facility] 2022-06-02 15:46:00 Andreea [facility] ACTIVATED PARTIAL 2022-06-02 15:46:00 Andreea [facility] PHOSPHORUS 2022-06-02 10:27:00 [facility] [place] MAGNESIUM 2022-06-02 10:27:00 [facility] [place] BASIC METABOLIC PANEL 2022-06-02 10:27:00 Prajapati [facility] (NA, K, CL, CO2, GLUCOSE, Rod, [facility] [facility] BUN, CREATININE, CA) [place] CBC WITH DIFF 2022-06-02 10:27:00 Prajapati [facility] [place] PHOSPHORUS 2022-06-02 10:27:00 Prajapati [facility] [place] MAGNESIUM 2022-06-02 10:27:00 [facility] [place] BASIC METABOLIC PANEL 2022-06-02 10:27:00 Prajapati [facility] (NA, K, CL, CO2, GLUCOSE, Rod, [facility] [facility] BUN, CREATININE, CA) [place] CBC WITH DIFF 2022-06-02 10:27:00 [facility] [place] PHOSPHORUS 2022-06-01 10:05:00 Prajapati [facility] [place] MAGNESIUM 2022-06-01 10:05:00 Prajapati [facility] [place] BASIC METABOLIC PANEL 2022-06-01 10:05:00 Prajapati [facility] (NA, K, CL, CO2, GLUCOSE, Rod, [facility] [facility] BUN, CREATININE, CA) [place] CBC WITH DIFF 2022-06-01 10:05:00 [facility] [place] PHOSPHORUS 2022-06-01 10:05:00 Prajapati [facility] [place] MAGNESIUM 2022-06-01 10:05:00 Prajapati [facility] [place] BASIC METABOLIC PANEL 2022-06-01 10:05:00 [facility] (NA, K, CL, CO2, GLUCOSE, Rod, [place] [facility] BUN, CREATININE, CA) [place] CBC WITH DIFF 2022-06-01 10:05:00 [facility] [place] PHOSPHORUS 2022-05-31 11:01:00 Prajapati [facility] [place] MAGNESIUM 2022-05-31 11:01:00 [facility] [place] BASIC METABOLIC PANEL 2022-05-31 11:01:00 Prajapati [facility] (NA, K, CL, CO2, GLUCOSE, Rod, [facility] [facility] BUN, CREATININE, CA) [place] CBC WITH DIFF 2022-05-31 11:01:00 [facility] [place] PROTHROMBIN TIME / INR 2022-05-31 11:01:00 Maurice Gutierrez [facility] ACTIVATED PARTIAL 2022-05-31 11:01:00 Juanpablo Salmon [facility] FIBRINOGEN 2022-05-31 11:01:00 Ryley Polo [facility] PHOSPHORUS 2022-05-31 11:01:00 [facility] [place] MAGNESIUM 2022-05-31 11:01:00 [facility] [place] BASIC METABOLIC PANEL 2022-05-31 11:01:00 [facility] (NA, K, CL, CO2, GLUCOSE, Rod, [facility] BUN, CREATININE, CA) [place] CBC WITH DIFF 2022-05-31 11:01:00 [facility] [place] PROTHROMBIN TIME / INR 2022-05-31 11:01:00 Maurice Gutierrez [facility] ACTIVATED PARTIAL 2022-05-31 11:01:00 Juanpablo Salmon [facility] FIBRINOGEN 2022-05-31 11:01:00 Ryley Polo [facility] PHOSPHORUS 2022-05-31 11:01:00 Prajapati [facility] [place] MAGNESIUM 2022-05-31 11:01:00 Prajapati [facility] [place] BASIC METABOLIC PANEL 2022-05-31 11:01:00 Prajapati [facility] (NA, K, CL, CO2, GLUCOSE, Rod, [facility] BUN, CREATININE, CA) [place] CBC WITH DIFF 2022-05-31 11:01:00 [facility] [place] PROTHROMBIN TIME / INR 2022-05-31 11:01:00 Juanpablo Salmon [facility] ACTIVATED PARTIAL 2022-05-31 11:01:00 Juanpablo Salmon [facility] THRLAS [facility] FIBRINOGEN 2022-05-31 11:01:00 [facility] FL TIME OR 2022-05-31 04:56:00 [facility] [place] TIME OR 2022-05-31 04:56:00 [facility] [place] TIME OR 2022-05-31 04:56:00 [facility] FIBRINOGEN 2022-05-31 01:26:00 [facility] FIBRINOGEN 2022-05-31 01:26:00 [facility] FIBRINOGEN 2022-05-31 01:26:00 [facility] VENOGRAM 2022-05-31 01:17:00 [facility] VENOGRAM 2022-05-31 01:17:00 [facility] FIBRINOGEN 2022-05-30 21:47:00 [facility] FIBRINOGEN 2022-05-30 21:47:00 [facility] FIBRINOGEN 2022-05-30 21:47:00 [facility] FIBRINOGEN 2022-05-30 18:14:00 Tssheila [facility] FIBRINOGEN 2022-05-30 18:14:00 Tssheila [facility] FIBRINOGEN 2022-05-30 18:14:00 Tssheila [facility] FIBRINOGEN 2022-05-30 18:14:00 Tssheila [facility] FIBRINOGEN 2022-05-30 15:21:00 [facility] FIBRINOGEN 2022-05-30 15:21:00 [facility] FIBRINOGEN 2022-05-30 15:21:00 [facility] FIBRINOGEN 2022-05-30 15:21:00 [facility] FIBRINOGEN 2022-05-30 13:12:00 [facility] FIBRINOGEN 2022-05-30 13:12:00 [facility] FIBRINOGEN 2022-05-30 13:12:00 [facility] FIBRINOGEN 2022-05-30 13:12:00 [facility] FIBRINOGEN 2022-05-30 11:13:00 [facility] FIBRINOGEN 2022-05-30 11:13:00 [facility] FIBRINOGEN 2022-05-30 11:13:00 [facility] FIBRINOGEN 2022-05-30 11:13:00 [facility] PHOSPHORUS 2022-05-30 09:27:00 [facility] MAGNESIUM 2022-05-30 09:27:00 [facility] BASIC METABOLIC PANEL 2022-05-30 09:27:00 Ryley Polo [facility] (NA, K, CL, CO2, GLUCOSE, Medica l Branch BUN, CREATININE, CA) CBC WITH DIFF 2022-05-30 09:27:00 [facility] ACTIVATED PARTIAL 2022-05-30 09:27:00 Ryley Polo [facility] FIBRINOGEN 2022-05-30 09:27:00 [facility] PHOSPHORUS 2022-05-30 09:27:00 [facility] MAGNESIUM 2022-05-30 09:27:00 [facility] BASIC METABOLIC PANEL 2022-05-30 09:27:00 [facility] (NA, K, CL, CO2, GLUCOSE, Medica l Branch BUN, CREATININE, CA) CBC WITH DIFF 2022-05-30 09:27:00 [facility] ACTIVATED PARTIAL 2022-05-30 09:27:00 [facility] 2022-05-30 09:27:00 [facility] PHOSPHORUS 2022-05-30 09:27:00 [facility] MAGNESIUM 2022-05-30 09:27:00 [facility] BASIC METABOLIC PANEL 2022-05-30 09:27:00 [facility] (NA, K, CL, CO2, GLUCOSE, Medica l Branch BUN, CREATININE, CA) CBC WITH DIFF 2022-05-30 09:27:00 [facility] ACTIVATED PARTIAL 2022-05-30 09:27:00 [facility] FIB[facility] 2022-05-30 09:27:00 [facility] PHOSPHORUS 2022-05-30 09:27:00 [facility] MAGNESIUM 2022-05-30 09:27:00 [facility] BASIC METABOLIC PANEL 2022-05-30 09:27:00 [facility] (NA, K, CL, CO2, GLUCOSE, Medica l Branch BUN, CREATININE, CA) CBC WITH DIFF 2022-05-30 09:27:00 [facility] ACTIVATED PARTIAL 2022-05-30 09:27:[address] [facility] FIBRINOGEN 2022-05-30 09:27:00 [facility] FIBRINOGEN 2022-05-30 06:58:00 [facility] FIBRINOGEN 2022-05-30 06:58:00 [facility] FIBRINOGEN 2022-05-30 06:58:00 [facility] FIBRINOGEN 2022-05-30 06:58:00 [facility] ACTIVATED PARTIAL 2022-05-30 06:13:[address] [facility] ACTIVATED PARTIAL 2022-05-30 06:13:[address] [facility] ACTIVATED PARTIAL 2022-05-30 06:13:[address] [facility] ACTIVATED PARTIAL 2022-05-30 06:13:[address] [facility] FIBRINOGEN 2022-05-30 04:43:00 Cris [facility] [place] FIBRINOGEN 2022-05-30 04:43:00 Cris [facility] FIBRINOGEN 2022-05-30 04:43:00 Cris [facility] FIBRINOGEN 2022-05-30 04:43:00 Cris [facility] FIBRINOGEN 2022-05-29 23:24:00 [facility] FIBRINOGEN 2022-05-29 23:24:00 [facility] FIBRINOGEN 2022-05-29 23:24:00 [facility] FIBRINOGEN 2022-05-29 23:24:00 [facility] FIBRINOGEN 2022-05-29 21:10:00 Cris [facility] FIBRINOGEN 2022-05-29 21:10:00 Cris [facility] FIBRINOGEN 2022-05-29 21:10:00 Cris, [facility] FIBRINOGEN 2022-05-29 21:10:00 Cris [facility] BASIC METABOLIC PANEL 2022-05-29 14:55:00 Armando [facility] [place] (NA, K, CL, CO2, GLUCOSE, Medica l Branch BUN, CREATININE, CA) CBC WITH DIFF 2022-05-29 14:55:00 Armando Pand[facility] FIBRINOGEN 2022-05-29 14:55:00 Cris [facility] BASIC METABOLIC PANEL 2022-05-29 14:55:00 Armando Pandey [facility] [place] (NA, K, CL, CO2, GLUCOSE, Medica l Branch BUN, CREATININE, CA) CBC WITH DIFF 2022-05-29 14:55:[facility]-05-29 14:55:00 Cris [facility] BASIC METABOLIC PANEL 2022-05-29 14:55:00 Armando Pandey [facility] [place] (NA, K, CL, CO2, GLUCOSE, Medica l Branch BUN, CREATININE, CA) CBC WITH DIFF 2022-05-29 14:55:00 Armando Pandey [facility] FIBRINOGEN 2022-05-29 14:55:00 Cris [facility] BASIC METABOLIC PANEL 2022-05-29 14:55:00 Armando Pandey [facility] [place] (NA, K, CL, CO2, GLUCOSE, Medica l Branch BUN, CREATININE, CA) CBC WITH DIFF 2022-05-29 14:55:00 Armando Pandey [facility] FIBRINOGEN 2022-05-29 14:55:00 Cris [facility] FL TIME OR 2022-05-29 14:03:[address] [facility] (NON-REPORTABLE) [facility] FL TIME OR 2022-05-29 14:03:00 [facility] (NON-REPORTABLE) [facility] FL TIME OR 2022-05-29 14:03:00 Haley Jorge L [employer] [facility] [place] (NON-REPORTABLE) [facility] FL TIME OR 2022-05-29 14:03:00 Jorge L De Leon [facility] (NON-REPORTABLE) [facility] VENOUS THROMBOLYSIS 2022-05-29 12:05:00 Cris [facility] VENOUS THROMBOLYSIS 2022-05-29 12:05:00 Cris [facility] MAGNESIUM 2022-05-29 11:11:00 [facility]OL[facility] PANEL 2022-05-29 11:11:00 [facility], K, CL, CO2, GLUCOSE, Medica l Branch BUN, CREATININE, CA) CBC WITHOUT DIFF 2022-05-29 11:11:00 [facility] 2022-05-29 11:11:00 Reyna [facility] MAGNESIUM 2022-05-29 11:11:00 [facility] BASIC METABOLIC PANEL 2022-05-29 11:11:00 Amber Orellana [facility] (NA, K, CL, CO2, GLUCOSE, Medica l Branch BUN, CREATININE, CA) CBC WITHOUT DIFF 2022-05-29 11:11:00 [facility] 2022-05-29 11:11:00 [facility]22-05-29 11:11:00 [facility] BASIC METABOLIC PANEL 2022-05-29 11:11:00 Amber Orellana [facility] (NA, K, CL, CO2, GLUCOSE, Medica l Branch BUN, CREATININE, CA) CBC WITHOUT DIFF 2022-05-29 11:11:00 Reyna [facility] ACTIVATED PARTIAL 2022-05-29 11:11:00 Reyna [facility] MAGNESIUM 2022-05-29 11:11:00 Reyna [facility] BASIC METABOLIC PANEL 2022-05-29 11:11:00 Amber Orellana [facility] (NA, K, CL, CO2, GLUCOSE, Medica l Branch BUN, CREATININE, CA) CBC WITHOUT DIFF 2022-05-29 11:11:00 [facility] 2022-05-29 11:11:00 [facility] (LAB 2022-05-28 23:34:00 [facility] Medical Branch ABORH CONFIRMATION (LAB 2022-05-28 23:34:00 [facility] Medical Branch ABORH CONFIRMATION (LAB 2022-05-28 23:34:00 [facility]) Medical Branch ABORH CONFIRMATION (LAB 2022-05-28 23:34:00 [facility] ONLY) Medical Branch HB ABO GROUPING 2022-05-28 23:00:00 [facility] HB ABO GROUPING 2022-05-28 23:00:00 [facility] HB ABO GROUPING 2022-05-28 23:00:00 [facility] HB ABO GROUPING 2022-05-28 23:00:00 [facility] ACTIVATED PARTIAL 2022-05-28 22:59:00 [facility] 2022-05-28 22:59:00 Reyna [facility] ACTIVATED PARTIAL 2022-05-28 22:59:00 Reyna [facility] ACTIVATED PARTIAL 2022-05-28 22:59:00 Reyna [facility] PROTHROMBIN TIME / INR 2022-05-28 17:23:00 Amber Orellana [facility] ACTIVATED PARTIAL 2022-05-28 17:23:00 [facility] / INR 2022-05-28 17:23:00 [facility] 2022-05-28 17:23:00 [facility] / INR 2022-05-28 17:23:00 [facility] ACT[facility] PARTIAL 2022-05-28 17:23:00 [facility] / INR 2022-05-28 17:23:00 Amber [facility] ACTIV[facility] PART[facility] 2022-05-28 17:23:00 [facility] BASIC METABOLIC PANEL 2022-05-28 09:09:00 [facility] ([facility], K, CL, CO2, GLUCOSE, Medica l Branch BUN, CREATININE, CA) CBC WITH DIFF 2022-05-28 09:09:00 [facility] 5 LEIDEN 2022-05-28 09:09:00 Joe Vitalessica [facility] FACTOR 2 [id number] MUTATION 2022-05-28 09:09:00 [facility] F5 LEIDEN AND F2 [id number] 2022-05-28 09:09:00 Liseth Vitale [facility] BASIC METABOLIC PANEL 2022-05-28 09:09:00 Romario Friedman [facility] (NA, K, CL, CO2, GLUCOSE, Medica l Branch BUN, CREATININE, CA) CBC WITH DIFF 2022-05-28 09:09:00 [facility] LEIDEN 2022-05-28 09:09:[address] [facility] FACTOR 2 [id number] MUTATION 2022-05-28 09:09:00 Liseth [facility] F5 LEIDEN AND F2 [id number] 2022-05-28 09:09:00 Liseth Vitale [facility] BASIC METABOLIC PANEL 2022-05-28 09:09:00 Romario Friedman [facility] (NA, K, CL, CO2, GLUCOSE, Medica l Branch BUN, CREATININE, CA) CBC WITH DIFF 2022-05-28 09:09:00 Romario Friedman [facility] FACTOR 5 LEIDEN 2022-05-28 09:09:[address] [facility] FACTOR 2 [id number] MUTATION 2022-05-28 09:09:00 [facility] F5 LEIDEN AND F2 [id number] 2022-05-28 09:09:00 Liseth Vitale [facility] BASIC METABOLIC PANEL 2022-05-28 09:09:00 Romario Friedman [facility] (NA, K, CL, CO2, GLUCOSE, Medica l Branch BUN, CREATININE, CA) CBC WITH DIFF 2022-05-28 09:09:00 Romario Friedman [facility] FACTOR 5 LEIDEN 2022-05-28 09:09:[address] [facility] FACTOR 2 [id number] MUTATION 2022-05-28 09:09:00 Liseth Vitale Un [facility] F5 LEIDEN AND F2 [id number] 2022-05-28 09:09:00 Liseth Vitale [facility] TRANSTHORACIC ECHO (TTE) 2022-05-27 15:47:00 Romario Friedman nivsamreen [facility] W/ CONTRAST Medical [facility] TRANSTHORACIC ECHO (TTE) 2022-05-27 15:47:00 Romario Friedman nivers[place] [facility] W/ CONTRAST [facility] TRANSTHORACIC ECHO (TTE) 2022-05-27 15:47:00 Romario Friedman nivers[place] [facility] W/ CONTRAST [facility] TRANSTHORACIC ECHO (TTE) 2022-05-27 15:47:00 [facility] CONTRAST [facility] CT ABDOMEN PELVIS W 2022-05-27 11:28:06 Edionwe, [facility] CONTRAST Medical Branch CT ABDOMEN PELVIS W 2022-05-27 11:28:[facility] ABDOMEN PELVIS W 2022-05-27 11:28:06 Edionwe, [facility] CONTRAST Medical Branch CT ABDOMEN PELVIS W 2022-05-27 11:28:06 [facility] BASIC METABOLIC PANEL 2022-05-27 09:45:00 Edionwe, [facility] (NA, K, CL, CO2, GLUCOSE, Medica l Branch BUN, CREATININE, CA) CBC WITH DIFF 2022-05-27 09:45:00 [facility] GLYCOSYL[facility]EMOGLOBIN 2022-05-27 09:45:00 [facility] Medical Branch BASIC METABOLIC PANEL 2022-05-27 09:45:[facility] ([facility], K, CL, CO2, GLUCOSE, Medica l Branch BUN, CREATININE, CA) CBC WITH DIFF 2022-05-27 09:45:00 [facility] GLYCOSYLATED HEMOGLOBIN 2022-05-27 09:45:00 [facility] Medical Branch BASIC METABOLIC PANEL 2022-05-27 09:45:00 Edionwe, [facility] (NA, K, CL, CO2, GLUCOSE, Medica l Branch BUN, CREATININE, CA) CBC WITH DIFF 2022-05-27 09:45:00 Edionwe, [facility] GLYCOSYLATED HEMOGLOBIN 2022-05-27 09:45:00 [facility] (A1C) Medical Branch BASIC METABOLIC PANEL 2022-05-27 09:45:00 [facility] (NA, K, CL, CO2, GLUCOSE, Medica l Branch BUN, CREATININE, CA) CBC WITH DIFF 2022-05-27 09:45:00 Edionwe, [facility] GLYCOSYLATED HEMOGLOBIN 2022-05-27 09:45:00 [facility] (A1C) Medical Branch DUPLEX VENOUS LEGS 2022-05-27 01:08:52 Meche Zapata [facility] BILATERAL - BY VASCULAR [facility] LAB DUPLEX VENOUS LEGS 2022-05-27 01:08:52 Meche Zapata [facility] BILATERAL - BY VASCULAR [facility] LAB DUPLEX VENOUS LEGS 2022-05-27 01:08:52 Meche Zapata [facility] BILATERAL - BY VASCULAR [facility] LAB DUPLEX VENOUS LEGS 2022-05-27 01:08:52 Meche Zapata [facility] BILATERAL - BY VASCULAR [facility] LAB URINE DRUG (IMMUNOASSAY) 2022-05-26 22:13:00 Ondina Yusuf [facility] SCREEN URINALYSIS 2022-05-26 22:13:00 Meche Zapata [facility] URINE DRUG (IMMUNOASSAY) 2022-05-26 22:13:00 Ondina Yusuf [facility] SCREEN URINALYSIS 2022-05-26 22:13:00 Jodi [facility] URINE DRUG (IMMUNOASSAY) 2022-05-26 22:13:00 Ondina Yusuf [facility] SCREEN URINALYSIS 2022-05-26 22:13:00 Jodi [facility] URINE DRUG (IMMUNOASSAY) 2022-05-26 22:13:00 Ondina Yusuf [facility] SCREEN URINALYSIS 2022-05-26 22:13:00 Meche Zapata [facility] HB ECG ROUTINE & RHYTHM 2022-05-26 21:43:55 Meche Zapata Meme [facility] HB ECG ROUTINE & RHYTHM 2022-05-26 21:43:55 Meche Zapata [facility] HB ECG ROUTINE & RHYTHM 2022-05-26 21:43:55 Meche Zapata [facility] HB ECG ROUTINE & RHYTHM 2022-05-26 21:43:55 Meche Zapata [facility] XR CHEST 1 VW 2022-05-26 21:37:08 JodiMeche delarosa [facility] XR CHEST 1 2022-05-26 21:37:08 JodiMeche delarosa [facility] XR CHEST 1 2022-05-26 21:37:08 JodiMeche delarosa [facility] XR CHEST 1 2022-05-26 21:37:08 JodiMeche delarosa [facility] MAGNESIUM 2022-05-26 21:20:00 Jodi, K [facility] TROPONIN I 2022-05-26 21:20:00 Meche Zapata [facility] COMP. METABOLIC PANEL 2022-05-26 21:20:00 Meche Zapata [facility] ([id number]) [facility] CBC WITH DIFF 2022-05-26 21:20:00 Meche Zapata [facility] N-TERMINAL PRO-BNP 2022-05-26 21:20:00 Meche Zapata [facility] MAGNESIUM 2022-05-26 21:20:00 Jodi, K [facility] TROPONIN I 2022-05-26 21:20:00 Meche Zapata [facility] COMP. METABOLIC PANEL 2022-05-26 21:20:00 Meche Zapata [facility] ([id number]) [facility] CBC WITH DIFF 2022-05-26 21:20:00 Meche Zapata [facility] N-TERMINAL PRO-BNP 2022-05-26 21:20:00 Meche Zapata [facility] MAGNESIUM 2022-05-26 21:20:00 Meche Zapata [facility] TROPONIN I 2022-05-26 21:20:00 JodiMeche delarosa [facility] COMP. METABOLIC PANEL 2022-05-26 21:20:00 Meche Zapata [facility] ([id number]) [facility] CBC WITH DIFF 2022-05-26 21:20:00 Jodi, K [facility] N-TERMINAL PRO-BNP 2022-05-26 21:20:00 Meche Zapata [facility] MAGNESIUM 2022-05-26 21:20:00 Meche Zapata [facility] TROPONIN I 2022-05-26 21:20:00 Meche Zapata [facility] COMP. METABOLIC PANEL 2022-05-26 21:20:00 Meche Zapata [facility] ([id number]) [facility] CBC WITH DIFF 2022-05-26 21:20:00 [facility] N-TERMINAL PRO-BNP 2022-05-26 21:20:00 Meche Zapata [facility] HOSPITAL ADMISSION 2022-05-26 05:01:00 Doctor Sergo, [facility] Name [facility] HOSPITAL ADMISSION 2022-05-26 05:01:00 Doctor Sergo, [facility] Name [facility] HOSPITAL ADMISSION 2022-05-26 05:01:00 Doctor Sergo, [facility] XR LUMBAR SPINE 3 VW 2022-05-23 09:47:55 Carlos Corbin [facility] DISCLOSURE AND CONSENT, 2022-05-19 05:01:00 Doctor Sergo, [facility] MEDICAL AND SURGICAL [place] [facility] PROCEDURES PATIENT QUESTIONNAIRE 2022-05-17 05:01:00 Doctor Sergo, [facility] Name [facility] [place] INSURANCE CORRESPONDENCE 2022-05-16 05:01:00 Doctor Sergo, [facility] Name [facility] [place] INSURANCE CORRESPONDENCE 2022-05-04 05:01:00 Doctor Sergo, [facility] Name [facility] DME/SUPPLY JUSTIFICATION 2022-04-22 06:01:00 Doctor Sergo, [facility] [place] [facility] PATIENT FINANCIAL 2022-04-13 15:27:54 Doctor Sergo, [facility] POLICY [place] [facility] [place] SLEEP STUDY DATA REPORT 2022-04-02 06:01:00 Doctor Sergo, [facility] [place] [facility] XR HIPS 2 VW RIGHT 2022-03-24 14:56:12 Susan Manjarrez [facility] Medical Branch MR LUMBAR SPINE WO 2022-03-24 14:41:33 Delroy Farah [facility] INSURANCE CORRESPONDENCE 2022-02-15 06:01:00 Doctor Unassagnes, [facility] [place] [facility] EXTERNAL PROVIDER RECORDS 2022-02-03 06:01:00 Doctor Unassigned, [facility] [place] [facility] REFERRAL- 2022-01-17 06:01:00 Doctor Unassagnes, [facility] REQUEST/RESPONSE [place] [facility] ASSIGNMENT OF BENEFITS 2021-12-08 15:11:38 Doctor Unassagnes, [facility] Name Medical Branch SLEEP STUDY DATA REPORT 2021-11-04 05:01:00 Doctor Sergo, [facility] Name [facility] [place] Plan of Care Planned Activity Planned Date Details Comments Source Future Scheduled 2022-10-[address] [facility] Test 00:00:00 (Season Ended) [code = [facility] Center INFLUENZA VACCINE (Season Ended)] Future Scheduled 2022-10-[address] [facility] Test 00:00:00 (Season Ended) [code = Medic al Center INFLUENZA VACCINE (Season Ended)] Future Scheduled 2022-07-19 Scre[facility] Test 13:32:24 malignant neoplasm of colon (procedure) [code = 455222092] Future Scheduled 2022-07-19 Screening for [facility] Test 13:32:24 malignant neoplasm of colon (procedure) [code = 842807784] Future Scheduled 2022-07-19 Scre[facility] Test 13:32:24 malignant neoplasm of colon (procedure) [code = 253059095] Future Scheduled 2022-07-19 COVID[facility]19 [facility] 13:32:24 [code = COVID-19 VACCINE (#1)] Future Scheduled 2022-07-19 [facility] 13:32:24 (procedure) [code = 686429678] Future Scheduled 2022-07-19 Screening for [facility] Test 13:32:24 malignant neoplasm of colon (procedure) [code = 693401411] Future Scheduled 2022-07-19 [facility] Test 13:32:24 malignant neoplasm of colon (procedure) [code = 667053938] Future Scheduled 2022-07-19 SHINGLES VACCINES (1 [facility] 13:32:24 of 2) [code = SHINGLES VACCINES (1 of 2)] Future Scheduled 2022-07-19 [facility]ZA [facility]ACCINE [facility] 13:32:24 [code = INFLUENZA VACCINE] Future Scheduled 2022-07-10 [facility]INE [facility] Test 23:57:37 [code = INFLUENZA VACCINE] Future Scheduled 2022-07-10 COVID-19 VACCINE (#1) [facility] 23:57:37 [code = COVID-19 VACCINE (#1)] Future Scheduled 2022-07-10 [facility] 23:57:37 (procedure) [code = 193753470] Future Scheduled 2022-07-10 [facility] Test 23:57:37 malignant neoplasm of colon (procedure) [code = 852897487] Future Scheduled 2022-07-10 SHINGLES VACCINES (1 [facility] Test 23:57:37 of 2) [code = SHINGLES VACCINES (1 of 2)] Future Scheduled 2022-07-10 IN[facility]ENZA VACCINE [facility] Test 23:57:37 [code = INFLUENZA VACCINE] Future Scheduled 2022-07-10 COVID-19 VACCINE (#1) [facility] 23:57:37 [code = COVID-19 VACCINE (#1)] Future Scheduled 2022-07-10 [facility] Test 23:57:37 (procedure) [code = 010566383] Future Scheduled 2022-07-10 [facility] 23:57:37 [code = COLONOSCOPY SCREENING] Future Scheduled 2022-07-10 SHINGLES VACCINES (1 [facility] 23:57:37 of 2) [code = SHINGLES VACCINES (1 of 2)] Future Scheduled 2022-07-10 INFLUENZA VACCINE [facility] Test 23:57:37 [code = INFLUENZA VACCINE] Future Scheduled 2022-07-10 COVID-19 VACCINE (#1) [facility] 23:57:37 [code = COVID-19 VACCINE (#1)] Future Scheduled 2022-07-10 [facility] 23:57:37 (procedure) [code = 727006219] Future Scheduled 2022-07-10 [facility]ING [facility] 23:57:37 [code = COLONOSCOPY SCREENING] Future Scheduled 2022-07-10 SHINGLES VACCINES (1 [facility] 23:57:37 of 2) [code = SHINGLES VACCINES (1 of 2)] Future Scheduled 2022-07-03 COVID-19 VACCINE (#1) [facility] 23:24:31 [code = COVID-19 VACCINE (#1)] Future Scheduled 2022-07-03 [facility] 23:24:31 (procedure) [code = 776471664] Future Scheduled 2022-07-03 [facility] 23:24:31 [code = COLONOSCOPY SCREENING] Future Scheduled 2022-07-03 SHINGLES VACCINES (1 [facility] 23:24:31 of 2) [code = SHINGLES VACCINES (1 of 2)] Future Scheduled 2022-07-03 INFLUENZA VACCINE [facility] Test 23:24:31 [code = INFLUENZA VACCINE] Future Scheduled 2022-05-18 COVID-19 VACCINE (#1) [facility] 20:48:55 [code = COVID-19 VACCINE (#1)] Future Scheduled 2022-05-18 [facility] 20:48:55 (procedure) [code = 380531959] Future Scheduled 2022-05-18 [facility]COPY [facility]ING [facility] 20:48:55 [code = COLONOSCOPY SCREENING] Future Scheduled 2022-05-18 SHINGLES VACCINES (1 [facility] 20:48:55 of 2) [code = SHINGLES VACCINES (1 of 2)] Future Scheduled 2022-05-18 INFLUENZA VACCINE [facility] Test 20:48:55 [code = INFLUENZA VACCINE] Future Scheduled 2022-05-18 COVID-19 VACCINE (#1) [facility] 20:48:55 [code = COVID-19 VACCINE (#1)] Future Scheduled 2022-05-18 [facility] 20:48:55 (procedure) [code = 544255486] Future Scheduled 2022-05-18 COLONOSCOPY SCREENING Me [facility] [...] Future Scheduled 2021-10-15 HEPATITIS B VACCINES [facility] Test 19:26:49 (1 of 3 - 3-dose series) [code = HEPATITIS B VACCINES (1 of 3 - 3-dose series)] Future Scheduled 2021-10-15 COVID-19 VACCINE (#1) [facility] 19:26:49 [code = COVID-19 VACCINE (#1)] Future Scheduled 2021-10-15 [facility] 19:26:49 (procedure) [code = 927105864] Future Scheduled 2021-10-15 [facility] 19:26:49 [code = COLONOSCOPY SCREENING] Future Scheduled 2021-10-15 SHINGLES VACCINES (1 [facility] 19:26:49 of 2) [code = SHINGLES VACCINES (1 of 2)] Future Scheduled 2021-10-15 INFLUENZA VACCINE [facility] Test 19:26:49 [code = INFLUENZA VACCINE] Future Scheduled 2021-10-12 HEPATITIS B VACCINES [facility] 17:47:43 (1 of 3 - 3-dose series) [code = HEPATITIS B VACCINES (1 of 3 - 3-dose series)] Future Scheduled 2021-10-12 COVID-19 VACCINE (#1) [facility] 17:47:43 [code = COVID-19 VACCINE (#1)] Future Scheduled 2021-10-12 [facility] C screening [facility] Test 17:47:43 (procedure) [code = 004313395] Future Scheduled 2021-10-12 COLONOSCOPY SCREENING [facility] Test 17:47:43 [code = COLONOSCOPY SCREENING] Future Scheduled 2021-10-12 SHINGLES VACCINES (1 [facility] Test 17:47:43 of 2) [code = SHINGLES VACCINES (1 of 2)] Future Scheduled 2021-10-12 INFLUENZA VACCINE [facility] Test 17:47:43 [code = [...] [facility] Test 00:00:00 (procedure) [code = [facility] 51192240] Future Scheduled [address] [facility]:00 (procedure) [code = [facility] 46609103] Future Scheduled 1981 DTAP/TDAP/TD VACCINES [facility] [...] [facility] colon (procedure) [code = 458030595] Future Scheduled [address] [facility]00 malignant neoplasm of [facility] colon (procedure) [code = 148775134] Future Scheduled [address] [facility] 00:[facility]:00 malignant [facility] colon (procedure) [code = 775444769] Future Scheduled [address] [facility] 00:00:00 malignant neoplasm of [facility] colon (procedure) [code = 510670881] Future Scheduled 1962 Sigmoidoscopy [facility] Future Scheduled [address] 00:00:00 (combo) [code = CT Medical C enter Colonography (combo)] Future Scheduled [address] [facility] 00:00:00 malignant neoplasm of [facility] colon (procedure) [code = 847459041] Future Scheduled [address] [facility] 00:00:00 malignant neoplasm of [facility] colon (procedure) [code = 915050585] Future Scheduled [address] [facility] 00:00:00 malignant neoplasm of [facility] Center colon (procedure) [code = 076754911] Future Scheduled [address] Test 00:00:00 malignant neoplasm of [facility] colon (procedure) [code = 368263481] Future Scheduled 1960 Sigmoidoscopy [code = [facility] Test 00:00:00 Sigmoidoscopy] Medical John r Encounters Start End Encounter Admission Attending Care Care Encounter Source Date/Time Date/Time Type Type Clinicians Facility Department ID 2022-06-11 Outpatient 3 [id number] ENCPL PM [facility] 03:48:38 [facility] [place] 2022-06-10 Outpatient 3 [id number] ENCPL PM [facility] 02:10:29 0428 [facility] [place] 2022-06-09 Outpatient 3 [id number] ENCPL PM [facility] 10:37:19 0427 [facility] [place] 2022-06-01 Outpatient R VERO [facility] TIFFANY [id number] Univers 14:27:32 IZABELA PHAM [facility] 2022-06-01 Outpatient 3 [id number] ENCPL REF [facility] 12:13:29 0419 [facility] [place] 2020-12-14 Emergency [facility] [id number] Univers 03:38:20 ity of [facility] 2020-12-14 Emergency [facility] [id number] Univers 02:28:47 ity of [facility] 2020-12-14 Emergency [facility] [id number] Univers 02:03:46 ity of [facility] 2020-12-13 Emergency [facility] [id number] Univers [facility] [id number] [facility] 19:02:00 2020-02-02 Inpatient [facility] [id number] [facility] 19:02:00 2022-09-15 2022-09-15 Outpatient R LAWRENCE PETERSON [facility] 1 [id number] Univers 10:00:00 10:00:00 LAWRENCE PETERSON [facility] 2022-08-03 2022-08-03 Outpatient R JERRICA [facility] [id number] Univers 10:15:00 10:15:00 ROBINA [facility] 2022-07-18 2022-07-18 Transition ANASTASIIA Calderon 1.2.840.114 10 [id number] Univers 00:00:00 00:00:00 of Care Elyssa Thornton BENNETT 350.1.13.10 i ty of [place] [id number] [facility] [address] 2022-07-16 2022-07-16 Outpatient U PETERSONLAWRENCE [facility] 1 [id number] Univers 09:11:00 12:30:00 LAWRENCE PETERSON [facility] 2022-07-16 2022-07-16 Hospital ELIAS PetersonE 1.2.840.114 [id number] Univers 09:11:00 12:30:00 Encounter Lawrence WOO 350.1.13.10 ity of [facility] 4.2.7.2.686 Neal as [id number] [facility] [address] 2022-07-12 2022-07-12 [facility] [id number] [facility] 04:02:00 14:55:00 ELLE 2022-07-11 2022-07-11 Emergency X NINI, [facility] ERT [id number] Univers 10:09:00 11:10:00 ANA [facility] 2022-07-11 2022-07-11 Emergency X NINI [facility] ERT [id number] Univers 10:09:00 11:10:00 ANA [facility] 2022-07-11 2022-07-11 Emergency Nini, [place] 1.2.702.442 [id number] Univers 10:09:00 11:10:[address] [facility] 350.1.13.10 it y [place] [id number] [facility] [address] 2022-07-11 2022-07-11 Emergency X NANCY [facility] ERT [id number] Univers 04:26:00 07:38:00 RAMANA [facility] 2022-07-11 2022-07-11 Emergency Ángel Murray TRAUMA 1.2. 840.114 [id number] Univers 04:26:00 07:38:00 Ramana Cruz VESTA 350.1.13 .10 [place] [id number] [facility] [address] 2022-07-11 2022-07-[address] [facility] 1.2.981.217 [id number] [id number] Univers 00:22:00 00:26:00 [place] 350.1.13.10 i ty [facility] 4.2.7.[place] [id number] [facility] [address] 2022-07-08 2022-07-[address] [facility] ERT [id number] Univers 13:26:00 13:45:00 ity of [facility] 2022-07-08 2022-07-08 Emergency TRAUMA 1.2.159.849 [id number] Univers 13:26:00 13:45:00 [place] 350.1.13.10 [place] [id number] [address] 2022-07-05 2022-07-05 [facility] [id number] Univers 14:30:00 14:30:00 [facility] 2022-07-05 2022-07-05 [facility] [id number] Univers 14:30:00 14:30:00 [facility] 2022-07-05 2022-07-05 Emergency X PANKAJ [facility] ERT [id number] Univers 05:53:00 11:12:00 TRACEY [facility] 2022-07-05 2022-07-05 Emergency Hilda Perez TRAUMA 1.2.840 .114 [id number] Univers 05:53:00 11:12:00 Tracey Trinidad [place] 350.1.13.10 [place] [id number] [address] 2022-07-04 2022-07-[address] [facility] 1.2.054.526 [id number] Univers 14:13:00 14:19:00 [place] 350.1.13.10 i ty of [place].7.2.[place] [id number] [place] [address] [place] 2022-07-04 2022-07-04 [facility] [id number] Univers 14:00:00 14:00:00 [facility] 2022-07-04 2022-07-04 [facility] ERT [id number] Univers 14:00:00 14:00:00 [facility] 2022-07-04 2022-07-04 Telephone [facility] 1.2.840.114 [id number] Univers 00:00:00 00:00:00 [facility] 350.1.13.10 it y of [place] 4.2.7.2.686 Neal as JOEL?BLEA [id number] [address] 2022-07-04 2022-07-04 Refill [facility] 1.2.840.114 [id number] Univers 00:00:00 00:00:00 [facility] 350.1.13.10 it y of [place] 4.2.7.2.686 Neal as JOEL?BLEA [id number] [address] 2022-06-28 2022-06-28 Telephone [facility] 1.2.411.895 [id number] Univers 00:00:00 00:00:00 [facility] 350.1.13.10 i ty of [place] [id number] [address] OFFICE [facility] 2022-06-27 2022-06-27 Outpatient R IZABELA PHAM [facility] [id number] Univers 13:15:00 13:15:00 IZABELA PHAM [facility] 2022-06-21 2022-06-23 Inpatient ER RHETT MOORE Oncology [id number] SLELaverne 08:54:00 18:00:00 LAUREEN 2022-06-21 2022-06-23 Hospital ER Sunny Alfonso [facility] [id number] [facility] 08:54:00 18:00:00 Encounter Olga Abraham, [facility] 2022-06-22 2022-06-22 Telephone [facility] 1.2.840.114 [id number] Univers 00:00:00 00:00:00 [facility] 350.1.13.10 it y of [place] 4.2.7.2.686 Neal as JOEL?BLEA [id number] [address] OFFICE BUILDING 2022-06-21 2022-06-21 Orders Doctor LAKESHIA 1.2.840.114 [id number] Univers 00:00:00 00:00:00 Only Unassigned, CHIRAG 350.1.13.10 ity of [place] [facility] 4.2.7.2.686 Neal as [id number] [address] 2022-06-17 2022-06-17 Telephone [facility] 1.2.840.114 102 [id number] Univers 00:00:00 00:00:00 [facility] 350.1.13.10 it y of [place] 4.2.7.2.686 Neal as JOEL?BLEA [id number] [address] OFFICE [facility] 2022-06-16 2022-06-[address] [facility] 1.2.840.114 [id number] Univers 11:30:00 11:45:00 Visit [facility] 350.1.13.10 i ty of [place] [id number] [address] OFFICE BUILDING 2022-06-16 2022-06-16 Outpatient R LAWRENCE PETERSON [facility] 1 [id number] Univers 11:30:00 11:30:00 LAWRENCE PETERSON ity of [facility] 2022-06-16 2022-06-16 Telephone [facility] 1.2.240.276 [id number] Univers 00:00:00 00:00:00 [facility] 350.1.13.10 i ty of [place] [id number] [address] OFFICE BUILDING 2022-06-14 2022-06-[address] [facility] 1.2.570.716 [id number] Univers 00:00:00 00:00:00 [facility] 350.1.13.10 i ty of [place] [id number] [facility] MEDICAL [address] OFFICE BUILDING 2022-06-08 2022-06-08 Telephone LAKESHIA Pham 1.2.795.049 [id number] Univers 00:00:00 00:00:00 Izabela WOO 350.1.13.10 i ty of [facility] 4.2.7.2.686 Neal as [id number] [facility] [address] 2022-06-08 2022-06-08 Transition ANASTASIIA Calderon 1.2.840.114 10 [id number] Univers 00:00:00 00:00:00 of Care Elyssasuma BENNETT 350.1.13.10 i ty of [place]2.7.2.[place] [id number] [facility] [address] 2022-05-26 2022-06-07 [facility] [id number] Univers 15:42:00 15:09:00 ALLAN hooks [facility] 2022-05-26 2022-06-07 Hospital Meche Zapata 1.2.840.1 14 [id number] Univers 15:42:00 15:09:00 Encounter Luis Huerta 350.1.13.10 ity of [facility] 4.2.7.2.686 Lance Swift [id number] Medical Cris Allan [address] 2022-06-07 2022-06-07 Outpatient [facility] [id number] Univers 13:00:00 13:00:00 RENEE hooks [facility] 2022-06-03 2022-06-03 Surgery TYE Peterson 1.2.840.114 [id number] Univers 07:00:00 09:33:00 Lawrence WOO 350.1.13.10 i ty of [facility] 4.2.7.2.686 Neal as [id number] [facility] [address] 2022-06-02 2022-06-02 Telephone [facility] 1.2.357.128 [id number] Univers 00:00:00 00:00:00 Izabela RICEBANNER 350.1.13.10 ity of [facility] 4.2.7.2.[place] [id number] Ga dical NAL 188 [facility] 2022-06-01 2022-06-[address] [facility] 1.2.840.114 [id number] Univers 00:00:00 00:00:00 [facility] 350.1.13.10 it y of ziyad [place] 4.2.7.2.686 [place] as JOEL?BLEA [id number] Ga dical KNEY 044 [facility] 2022-05-30 2022-05-30 Surgery TYE Lynch 1.2.840.114 [id number] Univers 20:00:00 22:46:00 Allan CHIRAG 350.1.13.10 it y of HOSPITAL 4.2.7.2.686 [place] as [phone] [address] 2022-05-29 2022-05-29 Surgery Cris, TYE 1.2.840.114 [id number] Univers 07:20:00 10:33:00 Allan CHIRAG 350.1.13.10 it y of [facility] 4.2.7.2.686 Neal as [id number] [address] 2022-05-26 2022-05-26 Outpatient R JERRICA [facility] [id number] Univers 09:45:00 09:45:00 ROBINA y [facility] 2022-05-24 2022-05-24 Outpatient R ROGER [facility] [id number] Univers 00:00:00 00:00:00 OWO ity [facility] 2022-05-24 2022-05-24 Prep [facility] 1.2.840.114 [id number] Univers 00:00:00 00:00:00 Surgery Izabela [place] 350.1.13.10 ity of [facility] 4.2.[place] [phone] Ga dical NAL 188 [facility] 2022-05-23 2022-05-23 Emergency X IBMONISHAUNOLIVIA, [facility] ERT [id number] Univers 16:40:00 18:12:00 FOLUSHO ity [facility] 2022-05-23 2022-05-23 Emergency X BRANDYUNOLIVIA, [facility] ERT [id number] Univers 16:40:00 18:12:00 FOLUSHO ity [facility] 2022-05-23 2022-05-23 Emergency [facility] 1.2.840.114 10 [id number] Univers 16:40:00 18:12:00 Folnardao Familia [place] 350.1.13.10 ity of [place].2.[place] [id number] [address] 2022-05-23 2022-05-23 Emergency Count includes the [facility] 1.2.360.166 [id number] Univers 03:49:00 06:12:00 Carlos Costa [place] 350.1.13.10 ity of [facility] 4.2.7.2.[place] [id number] [address] 2022-05-23 2022-05-23 Telephone [facility] 1.2.840.114 102 [id number] Univers 00:00:00 00:00:00 [facility] 350.1.13.10 it y of José Miguel [place] 4.2.7.2.686 Neal as JOEL?BLEA [phone] Ga edison RAOEY [address] MEDICAL OFFICE [facility] 2022-05-19 2022-05-19 Outpatient R IZABELA PHAM [facility] [id number] Univers 09:30:00 10:37:40 IZABELA PHAM [facility] 2022-05-19 2022-05-19 Office [facility] 1.2.840.114 [id number] Univers 09:30:00 10:37:40 Visit Izabela TORREZ 350.1.13.10 ity of [facility] 4.2.7.2.[place] [phone] Ga dicletty ARENAS [address] BUILDING 2022-05-19 2022-05-19 Orders Doctor LAKESHIA 1.2.840.114 [id number] Univers 00:00:00 00:00:00 Only Unassigned, CHIRAG 350.1.13.10 ity of [place] [facility] 4.2.7.2.686 Neal as [id number] [address] 2022-05-17 2022-05-17 Outpatient R ROGER [facility] [id number] Univers 08:00:00 08:57:35 WOO ity [facility] 2022-05-17 2022-05-17 Orders Doctor LAKESHIA 1.2.840.114 [id number] Univers 00:00:00 00:00:00 Only Unassigned, CHIRAG 350.1.13.10 ity of [place] [facility] 4.2.7.2.686 Neal as [phone] [address] 2022-05-16 2022-05-16 Orders Doctor LAKESHIA 1.2.840.114 [id number] Univers 00:00:00 00:00:00 Only Unassigned, CHIRAG 350.1.13.10 ity of [place] [facility] 4.2.7.2.686 Neal as [id number] [address] 2022-05-05 2022-05-05 Outpatient [facility] [id number] Univers 10:00:00 10:00:00 ROBINA [facility] 2022-05-05 2022-05-05 Telephone [facility] 1.2.840.114 [id number] Univers 00:00:00 00:00:00 [facility] 350.1.13.10 it y of [place] 4.2.7.2.686 [place] as JOEL?BLEA [phone] [address] MEDICAL OFFICE BUILDING 2022-05-04 2022-05-04 Orders Doctor LAKESHIA 1.2.840.114 [id number] Univers 00:00:00 00:00:00 Only Unassigned, CHIRAG 350.1.13.10 ity of [place] [facility] 4.2.7.2.686 Neal as [id number] [address] 2022-05-03 2022-05-03 Office [facility] 1.2.840.114 [id number] Univers 09:45:00 10:15:00 Visit Robina [facility] 350.1.13.10 it y of José [place] 4.2.7.2.686 Neal as JOEL?BLEA [id number] Ga edison LOAIZA 044 [facility] OFFICE [facility] 2022-05-03 2022-05-03 Outpatient R JERRICA [facility] [id number] Univers 09:45:00 09:45:00 ROBINA ity [facility] 2022-04-22 2022-04-22 Orders Doctor LAKESHIA 1.2.840.114 [id number] Univers 00:00:00 00:00:00 Only Unassigned, CHIRAG 350.1.13.10 ity of [place] [facility] 4.2.7.2.686 Neal as [phone] [address] 2022-04-22 2022-04-22 Telephone [facility] 1.2.840.114 10 [id number] Univers 00:00:00 00:00:00 Strandl [facility] 350.1.13.10 ity of [place] [phone] Ga alpamd DEEPA [address] [place] [address] 2022-04-13 2022-04-13 [facility] 1.2.901.826 [id number] [facility] 09:30:00 10:00:00 Visit Binundlawson TORREZ 350.1.13.10 ity of [facility] 4.2.7.[place] [phone] Ga dicmd NAL [address] [place] [address] 2022-04-13 2022-04-13 Outpatient R DAWSON CHOUDHURY [facility] [id number] Univers 09:30:00 09:30:00 DAWSON CHOUDHURY itkirit [facility] 2022-04-13 2022-04-13 Orders Doctor LAKESHIA 1.2.840.114 [id number] Univers 00:00:00 00:00:00 Only Unassigned, CHIRAG 350.1.13.10 ity of [place] [facility] 4.2.7.2.686 Neal as [id number] [address] 2022-04-13 2022-04-13 Telephone [facility] 1.2.840.114 10 [id number] Univers 00:00:00 00:00:00 Dawson Decker MULTISPEC 350.1.13.10 ity of [place] 4.2.7.2.686 [facility] [id number] [facility] AND [place] [address] [place] [facility] 2022-04-07 2022-04-07 Office [facility] 1.2.840.114 [id number] Univers 10:30:00 11:02:20 Visit [facility] 350.1.13.10 it y of José [place] TORREZ 4.2.7.2.686 Neal as JOEL?BLEA [phone] [address] MEDICAL OFFICE [facility] 2022-04-07 2022-04-07 Outpatient [facility] [id number] Univers 10:30:00 10:30:00 [facility] 2022-04-06 2022-04-06 [facility]phone 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 1. 2.840.114 [id number] Univers 20:00:00 22:30:00 Visit Dawson Choudhury 350.1.13. 10 ity of [place] 4.2.7.2.686 [facility] [id number] [facility] [address] 2022-04-02 2022-04-02 Outpatient R DAWSON CHOUDHURY [facility] [id number] Univers 20:00:00 20:00:00 DAWSON CHOUDHURY ity [facility] 2022-04-02 2022-04-02 Orders Doctor ASHER 1.2.840.114 [id number] Univers 00:00:00 00:00:00 Only Unassigned, CHIRAG 350.1.13.10 ity of [place] [facility] 4.2.7.2.686 Neal as [phone] [facility] [address] 2022-03-24 2022-03-24 [facility] Susan Manjarrez [facility] 1.2.840.114 10 [id number] Univers 08:01:23 23:59:00 Encounter SHAN 350.1.13.10 ity of [place] 4.2.7.2.686 [facility] [id number] [facility] [address] 2022-03-24 2022-03-24 Outpatient R [facility] [id number] Univers 07:57:08 08:00:00 DELROY ity of [facility] 2022-03-24 2022-03-24 [facility] 1.2.840.114 [id number] Univers 07:57:08 08:00:00 Encounter Delroy TORREZ 350.1.13.10 ity of [facility] 4.2.7.2.686 [facility] [id number] [facility] [address] 2022-02-16 2022-02-16 [facility] 1.2.840.114 [id number] Univers 00:00:00 00:00:00 [facility] 350.1.13.10 it y of [place]RE[place] 4.2.7.2.686 Neal as JOEL?BLEA [phone] [address] MEDICAL OFFICE BUILDING 2022-02-15 2022-02-15 Orders Doctor LAKESHIA 1.2.840.114 [id number] Univers 00:00:00 00:00:00 Only Unassigned, CHIRAG 350.1.13.10 ity of [place] [facility] 4.2.7.2.686 Neal as [phone] [address] 2022-02-03 2022-02-03 Orders Doctor ASHER 1.2.840.114 [id number] Univers 00:00:00 00:00:00 Only Unassigned, CHIRAG 350.1.13.10 ity of [place] [facility] 4.2.7.2.686 Neal as [id number] [address] 2022-02-02 2022-02-02 Office [facility] 1.2.840.114 [id number] Univers 09:30:00 09:45:00 Visit [facility] 350.1.13.10 it y of [place] 4.2.7.2.686 Neal as JOEL?BLEA [phone] [address] OFFICE [facility] 2022-02-02 2022-02-02 Outpatient [facility] [id number] Univers 09:30:00 09:40:22 [facility] 2022-01-17 2022-01-17 Orders Doctor LAKESHIA 1.2.840.114 [id number] Univers 00:00:00 00:00:00 Only Unassigned, CHIRAG 350.1.13.10 ity [facility] 4.2.7.2.686 Neal as [id number] [address] 2022-01-03 2022-01-03 Office [facility] 1.2.840.114 [id number] Univers 09:15:00 09:30:00 Visit [facility] 350.1.13.10 it y of [place] 4.2.7.2.686 Neal as JOEL?BLEA [phone] [address] OFFICE [facility] 2022-01-03 2022-01-03 Outpatient R JERRICA [facility] [id number] Univers 09:15:00 09:15:00 ROBINA [facility] 2021-12-08 2021-12-08 Office [facility] 1.2.058.491 [id number] Univers 10:20:00 10:40:00 Visit Dawson TORREZ 350.1.13.10 ity of [place] [id number] Ga edison [facility] 085 [facility] 2021-12-08 2021-12-08 Outpatient R DAWSON CHOUDHURY [facility] [id number] Univers 10:20:00 10:20:00 DAWSON CHOUDHURY ity [facility] 2021-12-08 2021-12-08 Outpatient R BINU CHOUDHURYSINGH [facility] [id number] Univers 10:20:00 10:20:00 BONIDAWSON PÉREZ itkirit [facility] 2021-12-08 2021-12-08 Orders Doctor LAKESHIA 1.2.840.114 [id number] Univers 00:00:00 00:00:00 Only Unassigned, CHIRAG 350.1.13.10 ity of [facility] 4.2.7.2.686 Neal as [phone] [address] 2021-12-02 2021-12-[address] [facility] 1.2.840.114 [id number] Univers 11:00:00 11:15:00 Visit [facility] 350.1.13.10 it y of [place] 4.2.7.2.686 Neal as JOEL?BLEA [id number] [address] MEDICAL OFFICE BUILDING 2021-12-02 2021-12-02 Outpatient R JERRICA [facility] [id number] Univers 11:00:00 11:00:00 ROBINA gradykirit [facility] 2021-11-25 2021-11-25 Outpatient R MACEYMARYLINLawson [facility] [id number] Univers 20:00:00 20:00:00 BONISANGITAJALEELMARYLINL itkirit [facility] 2021-11-22 2021-11-22 Outpatient R MACEYBINUSINGH [facility] [id number] Univers 10:15:00 10:15:00 MACEY MARYLINLawson itkirit 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 1.2 .840.114 [id number] Univers 10:00:00 10:15:00 Visit Dawson Choudhury 350.1.13. 10 ity of [place] 4.2.7.2.686 [facility] [phone] [facility] [address] 2021-11-04 2021-11-04 Outpatient R MARYLIN CHOUDHURYL [facility] [id number] Univers 10:00:00 10:00:00 MACEY MARYLINL ity [facility] 2021-11-04 2021-11-04 Orders Doctor LAKESHIA 1.2.840.114 [id number] Univers 00:00:00 00:00:00 Only Unassigned, CHIRAG 350.1.13.10 [place] [facility] 4.2.7.2.686 Neal as [phone] [address] 2021-11-02 2021-11-02 [facility] [id number] Univers 09:30:00 10:02:11 ROBINA ity [facility] 2021-11-02 2021-11-02 Office [facility] 1.2.840.114 [id number] Univers 09:30:00 09:45:00 Visit [facility] 350.1.13.10 it y of [place] 4.2.7.2.686 Neal as JOEL?BLEA [phone] [address] MEDICAL OFFICE [facility] 2021-11-02 2021-11-02 [facility]phone [facility] 1.2.840.114 [id number] Univers 00:00:00 00:00:00 Strahil T MULTISPEC 350.1.13.10 ity of [facility] 4[place]2.7.2.[place] [id number] [facility] AND JONAH [address] [facility] 2021-10-07 2021-10-07 Telephone [facility] 1.2.840.114 [id number] Univers 00:00:00 00:00:00 [facility] 350.1.13.10 it y of [place] 4.2.7.2.686 Neal as JOEL?BLEA [phone] [address] MEDICAL OFFICE BUILDING 2021-10-05 2021-10-05 [facility] [id number] Univers 14:15:00 14:43:53 ROBINA y [facility] 2021-10-05 2021-10-05 Office [facility] 1.2.840.114 [id number] Univers 14:15:00 14:30:00 Visit [facility] 350.1.13.10 it y of [place] 4.2.7.2.686 Neal as JOEL?BLEA [phone] [place] LOAIZA [address] MEDICAL OFFICE [facility] 2021-10-05 2021-10-05 Outpatient R ORLANDOEDIANJUM [facility] [id number] Univers 14:15:00 14:15:00 ROBINA ity [facility] 2021-09-22 2021-09-22 [facility] [id number] [id number] Univers 13:40:00 14:00:00 Visit Dawson TORREZ 350.1.13.10 [place] [phone] Ga alpaletty [facility] 085 [facility] 2021-09-22 2021-09-22 Outpatient R GUERAJALEEL [facility] [id number] Univers 13:40:00 13:40:00 [facility] 2021-09-22 2021-09-22 Outpatient R MACEY [facility] [id number] Univers 13:40:00 13:40:00 [facility] 2021-09-21 2021-09-21 Letter LAKESHIA Morales 1.2.840.114 [id number] Univers 00:00:00 00:00:00 (Out) Erma Decker CHIRAG 350.1.13.10 it y of [facility] 4.2.7.2.686 Neal as [phone] [address] 2021-09-20 2021-09-20 Outpatient R JOEL [facility] [id number] Univers 15:00:00 15:33:41 MAGDALENE hooks o f [facility] 2021-09-20 2021-09-20 Urgent Magdalene Maldonado [facility] 1.2.840. 114 [id number] Univers 15:00:00 15:33:41 Care [facility] 350.1.13.10 ity of [place] 4.2.7.2.686 Neal as JOEL?BLEA [phone] Ga edison LOAIZA [address] MEDICAL OFFICE BUILDING 2021-09-202021-09-20 Outpatient R JOEL [facility] [id number] Univers 15:00:00 15:33:41 MAGDALENE hooks o f [facility] 2021-09-15 2021-09-15 Outpatient R JERRICA [facility] [id number] Univers 11:15:00 11:37:11 ROBINA hooks [facility] 2021-09-15 2021-09-15 Office [facility] 1.2.840.114 [id number] Univers 11:15:00 11:30:00 Visit [facility] 350.1.13.10 it y of [place] 4.2.7.2.686 Neal as JOEL?BLEA [phone] [address] MEDICAL OFFICE [facility] 2021-09-15 2021-09-15 Out[facility] [id number] Univers 11:15:00 11:15:00 ROBINA [facility] 2021-06-30 2021-06-30 Orders Doctor LAKESHIA 1.2.840.114 [id number] Univers 00:00:00 00:00:00 Only Unassigned, CHIRAG 350.1.13.10 ity of [place] [facility] 4.2.7.2.686 Neal as [phone] [address] 2021-05-24 2021-05-24 Telephone [facility] 1.2.840.114 [id number] Univers 00:00:00 00:00:00 [facility] 350.1.13.10 it y of [place] 4.2.7.2.686 Neal as JOEL?BLEA [phone] [address] MEDICAL OFFICE [facility] 2021-05-11 2021-05-11 Outpatient [facility] [id number] Univers 11:45:00 11:45:00 ROBINA [facility] 2021-03-31 2021-04-[address] [facility] ERT [id number] Univers 09:05:00 07:46:00 CARLOS [facility] 2021-03-31 2021-04-02 Emergency [address] Bryant [facility] 1.2.8 40.114 [id number] Univers 09:05:00 07:46:00 Carlos Corbin 350.1.13.10 ity [facility] 4.2.7.2.686 [facility] [id number] [address] 2020-12-21 2020-12-21 Emergency [facility] [id number] Univers 12:12:00 16:04:00 MICHAEL ity [facility] 2020-12-21 2020-12-21 Emergency [facility] 1.2.435.950 [id number] Univers 12:12:00 16:04:00 Michael TORREZ 350.1.13.10 i ty of [facility] 4.2.7.2.686 [facility] [phone] [address] 2020-12-10 2020-12-10 Outpatient [facility] [id number] Univers 09:00:00 09:00:00 ROBINA hooks [facility] 2020-12-08 2020-12-08 Emergency Count includes the [facility] 1.2.448.435 [id number] Univers 05:45:00 08:15:00 Carlos Riceton 350.1.13.10 ity of [place] 4.2.7.2.686 [facility] [phone] [address] 2020-12-08 2020-12-08 Emergency X [facility] ERT [id number] Univers 05:45:00 08:15:00 CARLOS gradyy [facility] 2020-11-10 2020-11-10 Outpatient [facility] [id number] Univers 13:10:00 13:10:00 ity [facility] 2020-11-10 2020-11-10 Outpatient [facility] [id number] Univers 09:30:00 10:05:31 ROBINA hooks [facility] 2020-11-10 2020-11-10 [facility] 1.2.840.114 [id number] Univers 09:22:11 09:52:11 Visit [facility] 350.1.13.10 it y of José Miguel Torrez 4.2.7.2.686 Neal as Joel?Blea [phone] Ga edison loaiza [address] [place] [address] Medical Office Building 2020-09-19 2020-09-19 [facility] 456 [place] 03:24:00 03:24:00 E__ 39989 Medica l Group 2020-09-04 2020-09-04 Orders Doctor LAKESHIA 1.2.840.114 [id number] Univers 00:00:00 00:00:00 Only Unassigned, CHIRAG 350.1.13.10 ity of [place] [facility] 4.2.7.2.686 Neal as [phone] [address] 2020-08-22 2020-08-22 Outpatient [facility] [address] [place] 05:19:00 05:19:00 E__ 81324 [facility] 2020-08-17 2020-08-17 Outpatient [facility] [id number] [facility] 09:00:00 09:00:00 WONDIFUL ity o f [facility] 2020-08-06 2020-08-07 Hospital Edgard Leo 1.2.840.1 14 [id number] Univers 13:41:00 23:00:00 Encounter Kirsten Magalijaime Woo 350.1.13.10 ity of [facility] 4.2.7.2.686 Neal as [phone] [place] [address] [place] 2020-08-03 2020-08-05 Emergency eTd Lion 1.2.840. 114 [id number] Univers 08:54:00 16:11:00 Allen Maravilla 350.1.13.10 ity of Georgina Duncan [facility] 4.2.7.2 .686 [place] [id number] [place] [address] [place] 2020-07-31 2020-07-31 Emergency [facility] 1.2.840.114 [id number] Univers 08:39:00 14:39:00 Ladonna Torrez 350.1.13.10 ity of [place] 4.2.7.2.686 [facility] [phone] [facility] [address] 2020-07-25 2020-07-25 Outpatient BENREY_URSUL[facility] 456 997- [facility] 06:29:00 06:29:00 E__ 16901 Medica l Group 2020-07-24 2020-07-24 Outpatient BENRUFINO_URSULA [facility] 456 7 [facility] 11:00:00 11:00:00 E__ 09143 Medica l Group 2020-06-08 2020-06-08 Emergency Cor[place], [facility] 1.2.693.778 [id number] 6577 [facility] 13:48:00 17:01:00 Ted Riceton 350.1.13.10 i ty of [place] 4.2.7.2.686 [facility] [phone] [place] [address] 2020-01-28 2020-01-28 Outpatient JAM, [facility] [id number] [address] [place] [address] 00:00:00 00:00:00 [facility] 2020-01-20 2020-01-20 Outpatient EGTIARA, [facility] [id number] [place] 11:36:00 16:26:30 [facility] 2019-10-29 2019-10-31 Inpatient [facility] [id number] [place] [address] 00:00:00 00:00:00 YASMINE 164 [place] lynnetteodi 2019-03-12 2019-03-12 [facility] [place], [facility] 1.2.840.114 [id number] Univers 14:43:00 23:59:00 Encounter [facility] 350.1.13.10 [place] [id number] [facility] [address] 2019-03-11 2019-03-12 [facility], [facility] 1.2.840.114 [id number] Univers 15:17:00 17:21:00 Encounter [facility] 350.1.13.10 [place] [id number] [facility] [address] 2019-03-11 2019-03-12 Office Surgery, Td General [facility] 1.2.8 40.114 [id number] Univers 09:09:17 08:54:29 [facility] 350.1.13.10 ity of [place] 4.2.7.2.686 [place] [phone] [facility] [address] 2018-10-31 2018-10-31 Office Surgery, Tdc Vascular [facility] 1.2. 840.114 [id number] Univers 08:41:29 09:11:29 Visit Padron [facility] 350.1.13.10 ity of 4.2.7.2.686 Akbar costa [id number] [facility] [address] 2014-07-22 2014-07-22 [facility] [id number] [place] 17:51:00 21:57:00 Emergency r Titi 00 l [facility] 2014-07-22 2014-07-22 [facility] [id number] Memoria 17:51:00 21:57:00 Emergency r [place] 00 [facility] 2014-07-22 2014-07-22 Outpatient Griffin 2.16.840. 2.16.840.1 . [id number] 12:51:00 16:57:00 Christy 1.317329. [id number] 00 Radhika 3.615.0.1 5.0.101 01 Results Test Description Test Time Test Comments Results Result [facility] e Comments RAD, CHEST, 1 2022-06-15 Post-intubationReason VIEW, NON DEPT 0 for 13:01:00 exam:->encephalopathy , r/o [facility] be performed at the CHARO KAYE bedside?->Yes [...] (test code 3 = 2661) BASIC METABOLIC [id number] 09:21:22 Test Item Value Reference Range Interpretation [...] 30-44 G4 Severl y decreased 15-29 G5 Kidne y failure <15Reported eGF R is based on the CKD-EPI 2020 equation that d oes not use a race coefficientEsti mated GFR is not as accur ate as Creatinine Carlyn smith in predicting glom erular filtration rate . Estimated GFR is not appl icable for dialysis patien ts Lace Paper Machine Operator ID - [id number] 07:01:03 Test Item Value Reference Range Interpretation Comments PHOSPHORUS (BEAKER) (test code = 3.1 mg/dL 2.3-4.7 604) Lace Paper Machine Operator ID - PABLITO WHEPATIC FUNCTION [id number] 07:01:02 Test Item Value Reference Range Interpretation [...] (test code = 21 U/L 6-55 347) Lace Paper Machine Operator ID - PABLITO [id number] 07:01:02 Test Item Value Reference Range Interpretation Comments MAGNESIUM (BEAKER) (test code = 2.5 mg/dL 1.6-2.6 627) Lace Paper Machine Operator ID Marquis KENNEY WB-TYPE NATRIURETIC FACTOR (BNP)2022-07-12 06:45:03 Test Item Value Reference Range Interpretation Comments B-TYPE NATRIURETIC PEPTIDE (BEAKER) 33 pg/mL 0-100 (test code = 700) Lace Paper Machine Operator ID - PABLITO [id number] 06:38:12 Test Item Value Reference Range Interpretation [...] of thrombosis is within 95-100% range. PROTHROMBIN TIME/[id number] 06:28:19 Test Item Value Reference Range Interpretation Comments PROTIME (PIO) (test code = 13.9 seconds 11.9-14.2 759) INR (ALMAAKER) (test code = 370) 1.09 <=5.90 RECOMMENDED COUMADIN/WARFARIN INR THERAPY RANGESSTANDARD DOSE: 2.0 - 3.0 Includes: PROPHYLAXIS for venous thrombosis, systemic embolization; TREATMENT for venous thrombosis and/or pulmonary embolus.HIGH RISK: Target INR is 2.5-3.5 for patients with mechanical heart valves.POCT-GLUCOSE [id number] 06:10:03 Test Item Value Reference Range Interpretation Comments POC-GLUCOSE METER 97 mg/dL 70-110 : TESTED A T [facility] 6720 (PIO) (test code = CHRISTAL Alanis ENG SC, 1538) 11033: Lace Paper Machine Operator/Techni santosh ID = [id number] for Jackie Sousa COMP. METABOLIC PANEL ([id number])2022-07-11 11:58:27 Test Item Value Reference Range Interpretation Comments NA (test code = 138 mmol/L 135-145 3847398856) K (test code = 4.5 mmol/L 3.5-5.0 Slight hemoly sis 9608191534) CL (test code = 101 mmol/L 98-108 6271219882) CO2 TOTAL (test 23 mmol/L 23-31 code = 3280766310) AGAP (test code = 14 2-16 9522887219) BUN (test code = 14 mg/dL 7-23 Slight hemo lysis 0129928462) GLUCOSE (test code 94 mg/dL 70-110 = 1748757805) CREATININE (test 0.67 mg/dL 0.60-1.25 code = 1436310259) TOTAL BILI (test 0.6 mg/dL 0.1-1.1 code = 2570581024) CALCIUM (test code 9.0 mg/dL 8.6-10.6 = 5957932441) T PROTEIN (test 7.2 g/dL 6.3-8.2 code = 3257059946) ALBUMIN (test code 4.5 g/dL 3.5-5.0 = 1771063841) ALK PHOS (test 88 U/L 34-122 Slight hemoly sis code = 4448322456) ALTv (test code = 31 U/L 5-50 1742-6) AST(SGOT) (test 40 U/L 13-40 Slight hemol ysis code = 0468658348) eGFR (test code = 121.4 mL/min/1.73m2 3475217721) DEWAYNE (test code = Association of DEWAYNE) [...] or urine or abnormalities in imaging tests). [facility] WITH [id number] 11:18:00 Test Item Value Reference Range Interpretation Comments WBC (test code = 7.15 See_Comment [Automated 2486-2) message] The sy stem which generated this [...] (test code = 53.9 fL 38.5-51.6 H 12303-3) RDW-CV (test code = 17.2 % 12.1-15.4 H 788-0) PLT (test code = 400 See_Comment H [Automated 777-3) message] The sy stem which generated this result transmitted reference range : 150 - 328 10*3/ ?L. The reference r mitra was not used to interpret this result as normal/abnormal . MPV (test code = 8.8 fL 9.8-13.0 L 19346-3) NRBC/100 WBC (test 0.0 See_Comment [Automat ed code = 4568872044) message] The system which generated this result transmitted reference range : 0.0 - 10.0 /100 WBCs. The refer ence range was not u sed to interpret th is result as normal/abnormal . NRBC x10^3 (test code See_Comment [Auto mated = 0883357879) message] The s ystem which generated this result transmitted reference range : 10*3/?L. The reference range was not used to interpret this result as normal/abnormal . GRAN MAT (NEUT) % 71.5 % (test code = 770-8) IMM GRAN % (test code 0.40 % = 0912575280) LYMPH % (test code = 17.6 % 736-9) MONO % (test code = 7.4 % 5905-5) EOS % (test code = 1.8 % 713-8) BASO % (test code = 1.3 % 706-2) GRAN MAT x10^3(ANC) 5.11 10*3/uL 1.99-6.95 (test code = 7987795193) IMM GRAN x10^3 (test 0.03 10*3/uL 0.00-0.06 code = 3567720633) LYMPH x10^3 (test code 1.26 10*3/uL 1.09-3.23 = 731-0) MONO x10^3 (test code 0.53 10*3/uL 0.36-1.02 = 742-7) EOS x10^3 (test code = 0.13 10*3/uL 0.06-0.53 711-2) BASO x10^3 (test code 0.09 10*3/uL 0.01-0.09 = 704-7) Lab Interpretation Abnormal (test code = 45938-8) [facility]2022-07-11 09:27:00 Test Item Value Reference Range Interpretation Comments POCT GLU (test code = 7517745358) 95 mg/dL 70-110 Lab Interpretation (test code = Normal 07935-2) [facility]. METABOLIC PANEL ([id number])2022-07-05 13:14:57 Test Item Value Reference Range Interpretation Comments NA (test code = 137 mmol/L 135-145 5080635020) K (test code = 4.2 mmol/L 3.5-5.0 6965879787) CL (test code = 100 mmol/L 98-108 4982810038) CO2 TOTAL (test code = 24 mmol/L 23-31 0361832439) AGAP (test code = 13 2-16 1140567958) BUN (test code = 11 mg/dL 7-23 2452181572) GLUCOSE (test code = 124 mg/dL 70-110 H 5735893654) CREATININE (test code = 0.81 mg/dL 0.60-1.25 7895374933) TOTAL BILI (test code = 0.6 mg/dL 0.1-1.7 6671009213) CALCIUM (test code = 9.1 mg/dL 8.6-10.6 9471875544) T PROTEIN (test code = 7.0 g/dL 6.3-8.2 6744237261) ALBUMIN (test code = 4.3 g/dL 3.5-5.0 9213465402) ALK PHOS (test code = 103 U/L 34-122 1552657276) ALTv (test code = 28 U/L 5-50 1742-6) AST(SGOT) (test code = 39 U/L 13-40 7392735486) eGFR (test code = 97.5 mL/min/1.73m2 7075703469) DEWAYNE (test code = DEWAYNE) Association of [...] tests). Lab Interpretation Abnormal (test code = 65655-2) [facility] [id number] 12:25:35 Test Item Value Reference Range Interpretation Comments NT-proBNP (test code = 523 pg/mL <=125 H 5918353065) DEWAYNE (test code = DEWAYNE) Biotin has been reported to cause a negative bias, interpret results relative to patient's use of biotin. Lab Interpretation (test Abnormal code = 66217-9) [facility] [id number] 12:25:35 Test Item Value Reference Range Interpretation Comments TROPONIN I (test code = 0.009 ng/mL <=0.034 0530289112) DEWAYNE (test code = DEWAYNE) Reference (Normal) [...] biotin. Lab Interpretation Normal (test code = 66191-4) [facility] WITH [id number] 12:01:31 Test Item Value Reference Range Interpretation Comments WBC (test code = 7.09 See_Comment [Automated 8890-2) message] The sy stem which generated this result transmitted reference range : 4.20 - 10.70 10*3/?L. The reference range was not used to interpret this result as normal/abnormal . RBC (test code = 3.08 See_Comment L [Automated 981-8) message] The sy stem which generated this [...] (test code = 52.8 fL 38.5-51.6 H 21754-4) RDW-CV (test code = 16.1 % 12.1-15.4 H 788-0) PLT (test code = 436 See_Comment H [Automated 777-3) message] The sy stem which generated this result transmitted reference range : 150 - 328 10*3/ ?L. The reference r mitra was not used to interpret this result as normal/abnormal . MPV (test code = 8.9 fL 9.8-13.0 L 02336-9) NRBC/100 WBC (test 0.3 See_Comment [Automat ed code = 7597894146) message] The system which generated this result transmitted reference range : 0.0 - 10.0 /100 WBCs. The refer ence range was not u sed to interpret th is result as normal/abnormal . NRBC x10^3 (test code 0.02 See_Comment [Auto mated = 2449630505) message] The s ystem which generated this result transmitted reference range : 10*3/?L. The reference range was not used to interpret this result as normal/abnormal . GRAN MAT (NEUT) % 69.0 % (test code = 770-8) IMM GRAN % (test code 0.40 % = 5211179331) LYMPH % (test code = 16.1 % 736-9) MONO % (test code = 12.7 % 5905-5) EOS % (test code = 0.8 % 713-8) BASO % (test code = 1.0 % 706-2) GRAN MAT x10^3(ANC) 4.89 10*3/uL 1.99-6.95 (test code = 4543398566) IMM GRAN x10^3 (test 0.03 10*3/uL 0.00-0.06 code = 1235182803) LYMPH x10^3 (test code 1.14 10*3/uL 1.09-3.23 = 731-0) MONO x10^3 (test code 0.90 10*3/uL 0.36-1.02 = 742-7) EOS x10^3 (test code = 0.06 10*3/uL 0.06-0.53 711-2) BASO x10^3 (test code 0.07 10*3/uL 0.01-0.09 = 704-7) Lab Interpretation Abnormal (test code = 26064-3) [facility]ie[facility]EROTONIN RELEASE [id number] 14:13:16 Test Item Value Reference Range Interpretation Comments SCAN RESULT (test code = 7775894) UFH LOW DOSE 0.1 (2) See sca nned report. (PIO) (test code = 2593) See scanned reportU/S, RENAL, [id number] 17:23:00Reason for exam:->hydronephrosis [facility]ENTER[facility]: [facility]O [facility] : 1960 Sex: MFINAL [...] 06/23/2022 17:23:41 CBC W/PLT COUNT & AUTO [id number] 05:58:22 Test Item Value Reference Range Interpretation [...] 417) IMMATURE GRANULOCYTES-RELATIVE 0.40 % 0.00-1.00 PERCENT (PIO) (test code = 2801) U/S, ABDOMINAL, [id number] 16:48:00Abdomen limited area? Add comment if clarification is needed.->Right upper quadrantReason for exam:->elevated Tbili - please evaluate [facility] CENTERName: CHARO KAYE : 1960 Sex: MFINAL [...] Jm Baeza MDReport Verified Date/Time: 6:48:01 SERUM [id number] 16:04:04 Test Item Value Reference Range Interpretation Comments IMMUNOGLOBULIN A (IGA) 146 mg/dL 63-484 (BEAKER) (test code = 639) IMMUNOGLOBULIN G (IGG) 704 mg/dL 540-1822 (BEAKER) (test code = 427) IMMUNOGLOBULIN M (IGM) 72 mg/dL 22-293 (BEAKER) (test code = 638) SERUM IT ID 6144(BEAKER) No monoclonal (test code = 3817) protein detected. [facility]-"[id number] [facility], " (BEAKER) (test code = M.D. 3801) Clinical Marketing Communication Manager - SFOperator ID - ADMINPROTEIN ELECTROPHORESIS, SERUM WITH REFLEX TO [id number] 16:03:41 Test Item Value Reference Range Interpretation [...] Alpha-1 globulin (BEAKER) (test code = increased. 2612) Non-specific change. [id number] [facility], (BEAKER) (test code = M.D. 2616) PROTEIN TOTAL SERUM, 6.6 gm/dL 6.0-8.3 SPEP (BEAKER) (test code = 2660) Clinical Marketing Communication Manager - SFOperator ID - ADMINOperator ID - ADMHEPARIN ANTIBODY 2022-06-22 12:12:51 Test Item Value Reference Range Interpretation Comments HEPARIN ANTIBODY Positive-See Serotonin Negative A (BEAKER) (test code = Release Assay for 646) Confirmation HEPARIN ANTIBODY OD 3.000 <0.400 H (BEAKER) (test code = 3642) 4T TOTAL SCORE 5 (BEAKER) (test code = 2661) [id number] 05:50:16 Test Item Value Reference Range Interpretation Comments HAPTOGLOBIN (BEAKER) (test code = 308 mg/dL 14-258 H 366) Lace Paper Machine Operator ID - ADMINOperator ID - ADMINVITAMIN [id number] 05:20:33 Test Item Value Reference Range Interpretation Comments VITAMIN B12 (BEAKER) (test code = 359 pg/mL 213-816 774) Lace Paper Machine Operator ID - [id number] 05:20:33 Test Item Value Reference Range Interpretation Comments FERRITIN (BEAKER) (test code = 415.83 ng/mL 5.00-275.00 H 361) Lace Paper Machine Operator ID - MARCOIRON, TIBC, % SAT. (WITHOUT FERRITIN)2022-06-22 04:59:45 Test Item Value Reference Range Interpretation Comments IRON (BEAKER) (test code = 547) 38.0 ug/dL 40.0-160.0 L TOTAL IRON BINDING CAPACITY 311 ug/dL 250-450 (BEAKER) (test code = 769) IRON % SATURATION (2) (BEAKER) 12 % 20-55 L (test code = 2590) Lace Paper Machine Operator ID - MARCORETICULOCYTE [id number] 04:53:40 Test Item Value Reference Range Interpretation Comments RETICULOCYTE COUNT PCT (BEAKER) (test 5.7 % 0.5-1.8 H code = 575) Lace Paper Machine Operator ID - [id number] W/PLT COUNT & AUTO [id number] 04:53:36 Test Item Value Reference Range Interpretation [...] (BEAKER) (test code = 2801) HEPATIC FUNCTION [id number] 04:48:30 Test Item Value Reference Range Interpretation [...] (test code = 19 U/L 6-55 347) Lace Paper Machine Operator ID - ADMINLACTATE DEHYDROGENASE (LDH)2022-06-22 04:48:30 Test Item Value Reference Range Interpretation Comments LACTATE DEHYDROGENASE (BEAKER) (test 271 U/L 125-220 H code = 635) Lace Paper Machine Operator ID - ADMINBASIC METABOLIC [id number] 04:48:29 Test Item Value Reference Range Interpretation [...] not appl icable for dialysis patien ts Lace Paper Machine Operator ID - [id number] 04:48:29 Test Item Value Reference Range Interpretation Comments MAGNESIUM (BEAKER) (test code = 2.2 mg/dL 1.6-2.6 627) Lace Paper Machine Operator ID - ADMINCOMPREHENSIVE METABOLIC [id number] 13:27:13 Test Item Value Reference Range Interpretation [...] not appl icable for dialysis patien ts Lace Paper Machine Operator ID - JSCBC W/PLT COUNT & AUTO [id number] 13:14:04 Test Item Value Reference Range Interpretation [...] PERCENT (BEAKER) (test code = 2801) PROTHROMBIN TIME/[id number] 13:13:03 Test Item Value Reference Range Interpretation Comments PROTIME (BEAKER) (test code = 15.2 seconds 11.9-14.2 H 759) INR (PIO) (test code = 370) 1.28 <=5.90 RECOMMENDED COUMADIN/WARFARIN INR THERAPY RANGESSTANDARD DOSE: 2.0 - 3.0 Includes: PROPHYLAXIS for venous thrombosis, systemic embolization; TREATMENT for venous thrombosis and/or pulmonary embolus.HIGH RISK: Target INR is 2.5-3.5 for patients with mechanical heart valves.SARS-CoV2/RT-PCR ([facility]) 2022-06-21 13:03:14 Test Item Value Reference Interpretation Comments Range SARS-COV2/RT-PCR Negative Negative The SARS-Co V-2 (test code = target nucleic 37622-1) acids are not detected in thi s [...] revoked sooner. Fact Sheet for Healthcare Providers: https://www.Quick Hang/Documents/Xp ert%20Xpress%20SAR S%20CoV-2/Fact%20S heets/302-6362%20S ARS-COV-2%20HEALTH CARE%20PROVIDERS%2 0FACT%20SHEET.pdf Fact Sheet for Healthcare Patients: https://www.[employer]/Documents/Xp ert%20Xpress%20SAR S%20CoV-2/Fact%20S heets/302-3801%20S ARS-COV-2%20PATIEN T%20FACT%20SHEET.p df Lab Interpretation Normal (test code = 70283-8) [facility] 13:03:14 Test Item Value Reference Interpretation Comments Range SARS-COV2/RT-PCR Negative Negative The SARS-Co V-2 (test code = target nucleic 09842-5) acids are not detected in thi s [...] revoked sooner. Fact Sheet for Healthcare Providers: https://www.[employer]/Documents/Xp ert%20Xpress%20SAR S%20CoV-2/Fact%20S heets/302-3802%20S ARS-COV-2%20HEALTH CARE%20PROVIDERS%2 0FACT%20SHEET.pdf Fact Sheet for Healthcare Patients: https://www.[employer]/Documents/Xp ert%20Xpress%20SAR S%20CoV-2/Fact%20S heets/302-3801%20S ARS-COV-2%20PATIEN T%20FACT%20SHEET.p df Lab Interpretation Normal (test code = 09148-9) [facility]2022-06-21 13:03:14 Test Item Value Reference Range Interpretation Comments SARS-COV2/RT-PCR Negative Negative The SARS-Co V-2 target (test code = nucleic acids a re not 3023885) detected in thi s specimen. Negative result [...] revoked sooner. Fact Sheet for Healthcare Providers: [email or web address] m/Documents/Xpert%20Xpress%20SARS%20CoV-2/Fact%20Sheets/3023802%15PUMM-XWR-0%20 HEALTHCARE%20PROVIDERS%20FACT%20SHEET.pdf Fact Sheet for Healthcare Patients: [email or web address]/Documents/Xpert%20Xp ress%20SARS%20CoV-2/Fact%20Sheets/3023801%64HTOK-LKC-5%20PATIENT%20FACT%20SHEET .pdfSURGICAL PATHOLOGY [id number] 19:37:37 Test Item Value Reference Range Interpretation Comments Case Report (test code Surgical Pathology ? ? = [id number]) ?Case: [id number] ? Authorizing Provider: ?Lawrence Peterson MD ?Collected: ? 06/03/2022 1042 ?Ordering Location: ? ? [facility] OR ? Received: ?06/03/2022 1154 ? Department ? Pathologist: ? Tatyana Monroe, ? MD PhD ? Specimen: ? ?OTHER, IVC FOREIGN BODY ? Final Diagnosis (test q3ursTLkLANnv7fvJPAbpD code = 0301913526) FuZzEwMzNcZnRuYmpcdWMx IHtccnRmMVxlcGljMTAyMD VnIR6xoXhjkDe1cVrfHLCo hdN1xMXkZLyit6flPLW3k1 lclhgnJYPjVJnsZl3gqCNn fXxgUkVaRPMdWPr9uB10SL QsfH1ycIEgFRf5ITBjyVKh swJhPhGsNHDomETslOI5KT SeEZ1nttphPKbqXDtkMIGo ooS0ZPWddDUxV0ZhVXPoTA 6bzspjYYB3PFfmJFYvVPV6 VjJgGDOrf4Zaaik8CrWtmP FyZFxwbGFpblxmczIwXHBh ciBBLiBIRUFSVCwgUkVNT1 ZBTCBPRiBJTkZFUklPUiBW MR3OEMKTEaFtCs6QGNdFNu WZR7NOIqMpcRGfMMSgYWNp KH8IOLESROiHUB1SBMaBSC vyZFWMUSPSNAKZAkVSR6OO AhOvI6bRTWDNSlIGWpoPOp BGMN9YCZHSJmCbLtxYCPGG NBmqDSNgRMFhMYBeS4Xug0 KnZIdadTckWXSov99if86o xJmjh0JpGPuhy5YrZMCcz1 GhgSO6zV8wKP7sQCCvawKq ZWHwLRGAHGJrE12KPZWDEN 5cfKWlnOxnaeMxFLdgw1Gr Z1BeLnHxRYskopBqLZLpNy gvsxibYPNxYXV7zqHcCTQs VDbaMEXtYWmwPq8nnVQtcD ggFwUqTKHij2klpyJMJOid WjHdO131ESVnMRjke1lan8 AmZDWwaKCns6T0ONKIcuaa xVj6t4wpPiKvGzE7nUQcUA koP1aghhSkaHQxZ3IcnJBj iHs7qIkaW05kf8R5LvvmG7 xqIKXsPURcG9KhOG6aTVBp Ttb5KJA1SYX6EJImDGElK8 PzOP8kBPHhoXJbPKd4t8dz bDdgYPLsKAA0w3lsCEnsfc K7RE4lhl9hrRg5w9dmynTb MMYeGLZcpXYECENxE9IrkO clDn7meGx7oWtdEeaaSUP4 Dvv0QS6abe18qvh6gZpkQE KiccvnKfZ9TScjKIMfxqzd XRg1HWusZDLqcGE7FPUroO YoT0ZnUCRvGG1ytve7WPW9 LQorQQCnWrW3RAPqsWZbLA OvnFsvTVscu132KPQ5MgJy KS7zX8Mrn6P6zH1vnUYvSO JjwGAyAyRnOEGvsn5ptHTs JVhxr9CmHJA4zdV4lGTehX AtAKBwRN39Jwtjz5SyFzem HWG5SZLtubYrp7Bns6cnIz RhtaLrD2rqP3FmUYCrTFNe HVZrHcEmvoQsn2Cjr0ZccU TrlHg0n8rrFUVaRUOcbSkd r8cxNZP1KFWuF0D1jAKyv6 veYRuvUKApkCX2dwZ5ZPLv qFWwS0EvyW1sDMZxQN6qdq t1y1beXUR1SYncYIFdKwQ0 pfG7IUDjfIArTNIeoFewZU rjy585CUI7LfTtTVZfv8Ie Q3DxoOnnL54cfHmbV52fMI LogWeqzL9jlBsscG1oDqDl ZnMyNFxxbFxwbGFpblxmMV xmczIwXGxhbmcxMDMzXGhp Y2ekJpGqUBMeiPsmKWvpa0 NoXGYxXGNmMlxmczIwXHBh hyUETOcurpZfwZWvd57sJQ xseSByZXZpZXdlZCBhbGwg r0CvY4uwPN3nD6GypEMblj MrsfTkNUwqGLEsd7t8aUZo tNgwx6IirUZxHW75xoOjSU KuRPR3LLBst7fiHO35yydb NgStyK33geMfjuAePEMtk3 xrV7dwaFHaq7Rvl4ItavTw CThko5SqQF9rxXWxxvswjB K7GKUdwNAyjwOhfkW3uGxd NPZphE6ceA4ksPcfgP3xBr SpVrQeNWjsTA6kCLUkS6ls qWXaDNCkNGWsL6kjUzUsyE 1pwTaoFritxxD8LDQpuz67 Final Diagnosis Comment y6ckaXCrMXYlxXWfUTMmKd (test code = jxkyCvKRMjuDObB3Cjfjug 7901454521) PIakCC3aLP0woLcvmIRmjW XbSILeSuLpv2imf866cBQj y4bgOAHAiigotRx5oZloB6 8fo9R7LdmcG7myPQA8EHfa dmFtpyDhAZYjkFA8BExogt FkDbJ8FLyiIWMsTvR5ENFm dCJfCLQ9kRszKLDqcswhHg F2PYcdRBYxyjuwBGf0FTkd KCMpmAV0QFWphDIzJ6FbWT LvLC7ektz8CJV6DHbzYPJb MiD8AJOoyBLzXPZjlMcvLQ lmu509OZH3NbZtKLFthcHs rFipvC7wAeEmTHkeYkCkE2 hjYnBhdDJccGFyIFRoZSBh Js49TLDkjUTmcD0lcvNxwK B7UJPmPUHnDPQ9FcuoE5Ws YJG6bvAqiw5msoXtvMBnpC 0vzIdpbyRamph2OHE2cENv BLCihrBkeeOow6T4LJXdy4 N4NQEkk5QldPicvg8bE35k wQOmUGYkqHAjoCfare9iMS YgdGhlIHNwZWNpbWVuIGlz FC5kNKTnRUFcl8Kih8FwTJ IoekRrj56fricvvBauVXKx MTPtezYiY5HwtWpdDAApl1 NblIA0sR3at4wcd0AkTAXq cn0= Clinical Information Acute deep vein (test code = thrombosis (DVT) of 3534862806) iliac vein of both lower extremities [I82.423] Gross Description (test d2kvnSYuGEWdaBCdAEQlFc code = 2536277023) belwRsSNFsdURbD1Tcoryr PSdgIK2tSB5bhCkowEPozK YuRJZiMoKbg2wpn781zIPq v5txCKZLzohowPx8wIrwD1 5kj0L1RigsG19gzKUdKBC4 EUZhTTVepYElXDRrNCR2GB EerZMaN2apICFmFA5wzguz SYmcMJbaPJVptCT9ZARrzG QxI6KhIXKtNHvhKDXawkz0 FrFyDo8mrFUxpYfuDSrtQw pqoWzqz6OliSVmTUxwWAKy RZGdRLdgLLVpZ8NETTViPo h8RCNuKGSiBuHPXRG1UnR5 QXOsSOGSQLDlMNiqPIY4Bw kyIiBMUlIgODAwMDAwMDAw ZJMhGY6bYIywxULbXPqpNu fjXVsmN059ZEuyAMMwQ9Dv P4KzDOvrDHZ5UORmOiAwND OvCT0USgGaHJH1AILiUcKc AJj0MRw2CA5KGlTqYPHlTd N9OoRaLGReSAh8ROayWX9U EPM7OOAtBqa6UFeuJQU7IC MyQPq2YGHhQTpxblFqKXdh IfajBVqqE76dqGHbLUmciR FpblxmczIwIFNQRUNJTUVO LHSwwYApFQMiwfMzl7WqHT ldxSjqMWPsLtGyhJdhaI6q VuWlGTAIdVIsbP5bjrZUTQ oeUWQhB4IyauPbMDIyGZNj IGxhYmVsbGVkIHdpdGggdG wjHMDwmFgpexIxH5K8meVq FI5iTJJSUDKzeB0iDSAaEN ZoXLHPHMVqnbIyM46vUh9y zSykQrMcU0P8BHXuMMQqu3 6vyDX8ztXaIiFjST2yvEEz nIqeAS34kLDmbCSvbskrXE PsXERcZ5DzGIBauhiuPLEo JS58IWeyQh8hUOrdCK77FQ UlJOztU4Dbe8RydUGvg38d lBL6PW80BNabzNdbSC6yfQ 4bNCMve9KftbUjBVCpWNOr EQAlcTRnuc3fKAyrv5RgRH 7kEZqlJBifxDcaeJ8eyiQx lGWsPCMwWMFqs8JkPyEIxS Npf8DqM0ppPJ9tqTYyYu3u KXirq1McDFW7XI6bfhJ9sA 5xAM7nuZfwYWzrJFRilPOq ZFxmczIyXHBhclxzYTMwXG TgmZXVj9FzDURZlTgyFBCM O7asdNRtROpkLPRCIKuUZ3 HDECdeDAOzX5KgK2UulkF6 m5uahPrgv5NxoGRgDC6zgS FyfQ== Disclaimer (test code = z1alyBWxLKBrl5sbQWKxfH [id number]) FuZzEwMzNcZnRuYmpcdWMx MAcuiwIuXIxsu6KyJ8QwHz AwMFxhbnNpXGRlZmxhbmcx YBIxCCD6crHtJQYkKArnYQ RcPWzrTy6zjNOljDawOlEc NIGma5umrrPTCKkwSsZoA5 45VUGqJYqyl6wrl7FqKIBc rONtq3J2OZJAdtfyzPc5tM arF91iw9Y2BsinY9ofNBZj ZUFqM8JcSH9uCWJiZvu5YX A2MNB6ESZaRYMrM8PoVM0a PSIlhKGfDVu4w1nbzDleOO SgWMW6s4prSObjchTkKP1i bz8euKu8s4kphaSiLXBgQM KigEZNVFAkO9OozEbzYn2w lTf7eJuuNnqgNXM6Vfa1FQ 4hjc44gyn6gQtwKKTwkfyh EnU1GXwvPCXnovweDVi1JM zdNKVnkNM0HTQttBXgS2Gh EEBvJO1fxcq2IPH2LFpgYD SwAdH9WXHyxKIuZUOkqTgc PByrb484JDL8FaMqJG6bR2 Mmb9P5xE3kyBEaMYGyuAYj OlPkHYEnyu1xsRAxGBcgj9 VzEPL4frB9hBVbrQNcTFOv JL01Dvnwr8BiXhawh1JmF0 0agAF9EUhlf6mjZW9pQiZ3 qxRjIRxsu5wqxV0cNfH1HC nrCO4eWF9iHCPkfT9kejjx XHBnYnJkcmhlYWRccGdicm MnXs0doQflPPU9YLxoF8un iB9yGkP4HIhxA9edpS7dCD n8WPuwdYS0NAIazD1uLC6m sqsvo1abSMpjLRnzHWGxsg X5edO0FKVxzWJvB6YqfF9c JOZuUP6hpphqc2zqASF0FE xqBUIeLTH7QdSuJLAoc6Qw zic6JePcb2ZvbBPaQVosS5 6dn001PQHknlBwA2ankZHj nofteXBiaohpSHnhznF0IH OulhRck0DcHYPhHZL0IVfg JAkrnBMrLLFojEljf3voE1 RscGFyXHBsYWluXGYxXGZz MjBcbGFuZzEwMzNcaGljaF waIGuqWxXhVAJlNDilE2at WbLoV4IqCGMbYkFslNOdK4 ggVGhpcyByZXBvcnQgbWF5 YBukU5d6OLFzhmUlpUz1rc NeRkLtRCGuKUR2NUswwEIm EQYdl4LtlltkvZDnFl1suU HcLAAxgS5fVJMhWBBhHWvi BE6arJb0HKYRjEFppCHmUz ELHOSpQD24gyNvRTQYbsab o9D2IRfiAVBku4XbbKHzK3 sol5CaMGRcb26uSN1kp2Z5 n7obNLU2GI9gy7KpNNUzsN CfcNJpLQNmu2Ugsbbgl9Jr DEXoknSpu3HaOOBxtzMjwL KkDBKunjOtdo0meaAhEAAs POXyN7HaioabjRenijDrFD Mkha7ekoPcRSB3SOFBCTQo VACxm9TwzE0ioZWTKMJ1iQ Irgo3rekDLiGYfZBLzpc56 TPMoLU4eT2mkLMCmGXCvel XmwPYyo7SfNLMupGJ4vHCi GZ9MUhNGf97eTQGpRLHHie QmDNQaoAahxGT5ewN3oG5q IChGREEpLlx+IFRoZSBGRE LuLW4oiwMap1RjasYpjTfd FYRsgNKtv7AheQVtv1DllI rhp0TroLKuiSJjKS3dOBEu clxwYXIgVVRNQiBMYWJvcm Y3m2MiJLSuLQWyGRT3mLhp yfj4CRAorV8pMTEpA4gfng zqZKmqSTCnc1VknO1riNTH vWXdr9HmqMLzzOBQzCUjOY 2gluKfOFwYYXeLLNP1qiUo DZPnt6IuJGqeV3ieF11euI flyCw7zWZ1KCD4tY1jYhm+ IFxwYXJccGFyIEFwcHJvcH ZtNAGwyCqycyAwI6FueiJk lZ3gfKIpdcSxHF7uUR8qT7 X2lEQwCKBxrsThz6tgVTty dmUgYmVlbiByZXZpZXdlZC Gxy1PtCKxbSYI5IAqzprFu bmNsdWRpbmcgSCZFLCBTcG JfkCFyIKH7ZYgpqtYrecJp DY9urO0coTmsiY3tuNHovZ E4akwkIIJvNZOroNzwFWAn SI1dpZFgRBLmuvEQiZimdM YulF6cP8QmGJAnBHMzkx3i KJTofO6cEYglz0ZxmyfuXR WiSOOvOUKifvFaqf7pAFZn rQLQZT2ZFUaubPYdz0Syga PaV4cXSYO0XCPdOjYsBklc XTJnfHOidXIjYZVtoi56FG FtsQ7gbKkhYCDuwQ2fjT0b rEeifN5wEfYqFvAuVHshAF 9aJGNuJ3qgjWZoFIItPIQj C5fvZdEhgZ5qsGouNAymKk MoCzXqZZvyXYN4tM== Embedded Images (test code = 1695350859) [facility] METABOLIC PANEL (NA, K, CL, CO2, GLUCOSE, BUN, CREATININE, CA)2022-06-07 09:52:38 Test Item Value Reference Range Interpretation Comments NA (test code = 135 mmol/L 135-145 5064706745) K (test code = 4.0 mmol/L 3.5-5.0 3343927975) CL (test code = 104 mmol/L 98-108 4643789566) CO2 TOTAL (test code = 25 mmol/L 23-31 6539367754) AGAP (test code = 6 2-16 8264203263) BUN (test code = 16 mg/dL 7-23 4220415903) GLUCOSE (test code = 144 mg/dL 70-110 H 6195073376) CREATININE (test code = 1.10 mg/dL 0.60-1.25 2372613426) CALCIUM (test code = 8.4 mg/dL 8.6-10.6 L 4778689243) eGFR (test code = 68.5 mL/min/1.73m2 4238933569) DEWAYNE (test code = DEWAYNE) Association of [...] tests). Lab Interpretation Abnormal (test code = 82665-7) [facility] 09[facility]52:38 Test Item Value Reference Range Interpretation Comments MAGNESIUM (test code = 9366552708) 2.5 mg/dL 1.7-2.4 H Lab Interpretation (test code = Abnormal 54874-4) [facility] 09:52:38 Test Item Value Reference Range Interpretation Comments PHOSPHORUS (test code = 9297629331) 3.9 mg/dL 2.5-5.0 Lab Interpretation (test code = Normal 33980-3) [facility] [id number] 12:15:07 Test Item Value Reference Range Interpretation Comments WBC (test code = 6.35 See_Comment [Automated 8004-2) message] The sy stem which generated this [...] RDW-SD (test code = 51.5 fL 38.5-51.6 45963-5) RDW-CV (test code = 15.9 % 12.1-15.4 H 788-0) PLT (test code = 115 See_Comment L [Automated 777-3) message] The sy stem which generated this result transmitted reference range : 150 - 328 10*3/ ?L. The reference r mitra was not used to interpret this result as normal/abnormal . MPV (test code = 9.9 fL 9.8-13.0 18773-5) IPF % (test code = 2.9 % 1.2-10.7 Platelet count [id number]) measured by fluorescence method. NRBC/100 WBC (test 0.3 See_Comment [Automat ed code = 9049098950) message] The system which generated this result transmitted reference range : 0.0 - 10.0 /100 WBCs. The refer ence range was not u sed to interpret th is result as normal/abnormal . NRBC x10^3 (test code 0.02 See_Comment [Auto mated = 7831059584) message] The s ystem which generated this result transmitted reference range : 10*3/?L. The reference range was not used to interpret this result as normal/abnormal . GRAN MAT (NEUT) % 60.5 % (test code = 770-8) IMM GRAN % (test code 1.70 % = 1179908664) LYMPH % (test code = 24.7 % 736-9) MONO % (test code = 8.7 % 5905-5) EOS % (test code = 3.9 % 713-8) BASO % (test code = 0.5 % 706-2) GRAN MAT x10^3(ANC) 3.84 10*3/uL 1.99-6.95 (test code = 1266926451) IMM GRAN x10^3 (test 0.11 10*3/uL 0.00-0.06 H code = 2004355636) LYMPH x10^3 (test code 1.57 10*3/uL 1.09-3.23 = 731-0) MONO x10^3 (test code 0.55 10*3/uL 0.36-1.02 = 742-7) EOS x10^3 (test code = 0.25 10*3/uL 0.06-0.53 711-2) BASO x10^3 (test code 0.03 10*3/uL 0.01-0.09 = 704-7) Lab Interpretation Abnormal (test code = 88241-9) [facility] WITH [id number] 12:15:07 Test Item Value Reference Range Interpretation Comments WBC (test code = 6.35 See_Comment [Automated 6690-2) message] The sy stem which generated this result transmitted reference range : 4.20 - 10.70 10*3/?L. The reference range was not used to interpret this result as normal/abnormal . RBC (test code = 2.65 See_Comment L [Automated 479-8) message] The sy stem which generated this [...] RDW-SD (test code = 51.5 fL 38.5-51.6 63698-2) RDW-CV (test code = 15.9 % 12.1-15.4 H 788-0) PLT (test code = 115 See_Comment L [Automated 777-3) message] The sy stem which generated this result transmitted reference range : 150 - 328 10*3/ ?L. The reference r mitra was not used to interpret this result as normal/abnormal . MPV (test code = 9.9 fL 9.8-13.0 13070-1) IPF % (test code = 2.9 % 1.2-10.7 Platelet count [id number]) measured by fluorescence method. NRBC/100 WBC (test 0.3 See_Comment [Automat ed code = 4028831293) message] The system which generated this result transmitted reference range : 0.0 - 10.0 /100 WBCs. The refer ence range was not u sed to interpret th is result as normal/abnormal . NRBC x10^3 (test code 0.02 See_Comment [Auto mated = 2529055137) message] The s ystem which generated this result transmitted reference range : 10*3/?L. The reference range was not used to interpret this result as normal/abnormal . GRAN MAT (NEUT) % 60.5 % (test code = 770-8) IMM GRAN % (test code 1.70 % = 2829751615) LYMPH % (test code = 24.7 % 736-9) MONO % (test code = 8.7 % 5905-5) EOS % (test code = 3.9 % 713-8) BASO % (test code = 0.5 % 706-2) GRAN MAT x10^3(ANC) 3.84 10*3/uL 1.99-6.95 (test code = 3225502004) IMM GRAN x10^3 (test 0.11 10*3/uL 0.00-0.06 H code = 9503425912) LYMPH x10^3 (test code 1.57 10*3/uL 1.09-3.23 = 731-0) MONO x10^3 (test code 0.55 10*3/uL 0.36-1.02 = 742-7) EOS x10^3 (test code = 0.25 10*3/uL 0.06-0.53 711-2) BASO x10^3 (test code 0.03 10*3/uL 0.01-0.09 = 704-7) Lab Interpretation Abnormal (test code = 54190-3) [facility] 11:43:01 Test Item Value Reference Range Interpretation Comments MAGNESIUM (test code = 4026113902) 2.4 mg/dL 1.7-2.4 Lab Interpretation (test code = Normal 18575-5) [facility]-23 11:43:01 Test Item Value Reference Range Interpretation Comments PHOSPHORUS (test code = 3671110523) 4.1 mg/dL 2.5-5.0 Lab Interpretation (test code = Normal 44650-5) [facility] (NA, K, CL, CO2, GLUCOSE, BUN, CREATININE, CA)2022-06-05 11:43:01 Test Item Value Reference Range Interpretation Comments NA (test code = 137 mmol/L 135-145 3146390115) K (test code = 3.8 mmol/L 3.5-5.0 1614898932) CL (test code = 105 mmol/L 98-108 5706221938) CO2 TOTAL (test code = 28 mmol/L 23-31 0442322189) AGAP (test code = 4 2-16 7858426356) BUN (test code = 17 mg/dL 7-23 0460678306) GLUCOSE (test code = 86 mg/dL 70-110 7466874308) CREATININE (test code = 1.06 mg/dL 0.60-1.25 5404078294) CALCIUM (test code = 8.4 mg/dL 8.6-10.6 L 3216532962) eGFR (test code = 71.5 mL/min/1.73m2 2663257496) DEWAYNE (test code = DEWAYNE) Association of [...] tests). Lab Interpretation Abnormal (test code = 89829-2) [facility]-23 11:43:01 Test Item Value Reference Range Interpretation Comments MAGNESIUM (test code = 7334139298) 2.4 mg/dL 1.7-2.4 Lab Interpretation (test code = Normal 17513-4) [facility]2023-04-23 11:43:01 Test Item Value Reference Range Interpretation Comments PHOSPHORUS (test code = 5386034127) 4.1 mg/dL 2.5-5.0 Lab Interpretation (test code = Normal 19206-7) [facility]OL[facility] (NA, K, CL, CO2, GLUCOSE, BUN, CREATININE, CA)2022-06-05 11:43:01 Test Item Value Reference Range Interpretation Comments NA (test code = 137 mmol/L 135-145 3486596336) K (test code = 3.8 mmol/L 3.5-5.0 2130151833) CL (test code = 105 mmol/L 98-108 3427417016) CO2 TOTAL (test code = 28 mmol/L 23-31 9554831665) AGAP (test code = 4 2-16 5168255632) BUN (test code = 17 mg/dL 7-23 3119128463) GLUCOSE (test code = 86 mg/dL 70-110 6948599029) CREATININE (test code = 1.06 mg/dL 0.60-1.25 9674794073) CALCIUM (test code = 8.4 mg/dL 8.6-10.6 L 2086377961) eGFR (test code = 71.5 mL/min/1.73m2 4379425344) DEWAYNE (test code = DEWAYNE) Association of [...] tests). Lab Interpretation Abnormal (test code = 21703-4) [facility] (28794) (ALB,T.PRO,BILI T,BU/BC,ALT,AST,ALK PHOS)2022-06-04 08:25:57 Test Item Value Reference Range Interpretation Comments TOTAL BILI (test code = 6839823730) 0.7 mg/dL 0.1-1.1 BILI UNCON (test code = 1437668519) 0.3 mg/dL 0.1-1.1 BILI CONJ (test code = 1947293373) 0.0 mg/dL 0.0-0.3 T PROTEIN (test code = 5656180961) 6.4 g/dL 6.3-8.2 ALBUMIN (test code = 4013098442) 3.7 g/dL 3.5-5.0 ALK PHOS (test code = 0436535494) 105 U/L 34-122 ALTv (test code = 1742-6) 71 U/L 5-50 H AST(SGOT) (test code = 1615262325) 51 U/L 13-40 H Lab Interpretation (test code = Abnormal 37475-6) [facility] (85928) (ALB,T.PRO,BILI T,BU/BC,ALT,AST,ALK PHOS)2022-06-04 08:25:57 Test Item Value Reference Range Interpretation Comments TOTAL BILI (test code = 9429679359) 0.7 mg/dL 0.1-1.1 BILI UNCON (test code = 3120896210) 0.3 mg/dL 0.1-1.1 BILI CONJ (test code = 5859662679) 0.0 mg/dL 0.0-0.3 T PROTEIN (test code = 2611831521) 6.4 g/dL 6.3-8.2 ALBUMIN (test code = 0208638881) 3.7 g/dL 3.5-5.0 ALK PHOS (test code = 7904055831) 105 U/L 34-122 ALTv (test code = 1742-6) 71 U/L 5-50 H AST(SGOT) (test code = 7707863556) 51 U/L 13-40 H Lab Interpretation (test code = Abnormal 10407-9) [facility] [id number] 06:14:08 Test Item Value Reference Range Interpretation Comments TROPONIN I (test code = 0.027 ng/mL <=0.034 3545877553) DEWAYNE (test code = DEWAYNE) Reference (Normal) [...] biotin. Lab Interpretation Normal (test code = 59888-0) [facility] [id number] 06:14:08 Test Item Value Reference Range Interpretation Comments TROPONIN I (test code = 0.027 ng/mL <=0.034 [id number]) DEWAYNE (test code = DEWAYNE) Reference (Normal) [...] biotin. Lab Interpretation Normal (test code = 13109-0) [facility] [id number] 05:33:25 Test Item Value Reference Range Interpretation Comments WBC (test code = 9.78 See_Comment [Automated 2129-2) message] The sy stem which generated this result transmitted reference range : 4.20 - 10.70 10*3/?L. The reference range was not used to interpret this result as normal/abnormal . RBC (test code = 2.85 See_Comment L [Automated 208-8) message] The sy stem which generated this [...] RDW-SD (test code = 50.4 fL 38.5-51.6 54816-9) RDW-CV (test code = 15.9 % 12.1-15.4 H 788-0) PLT (test code = 121 See_Comment L [Automated 777-3) message] The sy stem which generated this result transmitted reference range : 150 - 328 10*3/ ?L. The reference r mitra was not used to interpret this result as normal/abnormal . MPV (test code = 8.7 fL 9.8-13.0 L 60923-6) IPF % (test code = 2.3 % 1.2-10.7 Platelet count [id number]) measured by fluorescence method. NRBC/100 WBC (test 0.6 See_Comment [Automat ed code = [id number]) message] The system which generated this result transmitted reference range : 0.0 - 10.0 /100 WBCs. The refer ence range was not u sed to interpret th is result as normal/abnormal . NRBC x10^3 (test code 0.06 See_Comment [Auto mated = 1366804133) message] The s ystem which generated this result transmitted reference range : 10*3/?L. The reference range was not used to interpret this result as normal/abnormal . GRAN MAT (NEUT) % 80.9 % (test code = 770-8) IMM GRAN % (test code 4.80 % = 3193749724) LYMPH % (test code = 8.6 % 736-9) MONO % (test code = 5.6 % 5905-5) EOS % (test code = 0.0 % 713-8) BASO % (test code = 0.1 % 706-2) GRAN MAT x10^3(ANC) 7.91 10*3/uL 1.99-6.95 H (test code = 2578522145) IMM GRAN x10^3 (test 0.47 10*3/uL 0.00-0.06 H code = 2039984661) LYMPH x10^3 (test code 0.84 10*3/uL 1.09-3.23 L = 731-0) MONO x10^3 (test code 0.55 10*3/uL 0.36-1.02 = 742-7) EOS x10^3 (test code = 0.06-0.53 L 711-2) BASO x10^3 (test code 0.01-0.09 = 704-7) Lab Interpretation Abnormal (test code = 04773-2) [facility] WITH [id number] 05:33:25 Test Item Value Reference Range Interpretation [...] RDW-SD (test code = 50.4 fL 38.5-51.6 79429-7) RDW-CV (test code = 15.9 % 12.1-15.4 H 788-0) PLT (test code = 121 See_Comment L [Automated 777-3) message] The sy stem which generated this result transmitted reference range : 150 - 328 10*3/ ?L. The reference r mitra was not used to interpret this result as normal/abnormal . MPV (test code = 8.7 fL 9.8-13.0 L 44111-1) IPF % (test code = 2.3 % 1.2-10.7 Platelet count [id number]) measured by fluorescence method. NRBC/100 WBC (test 0.6 See_Comment [Automat ed code = 6622963129) message] The system which generated this result transmitted reference range : 0.0 - 10.0 /100 WBCs. The refer ence range was not u sed to interpret th is result as normal/abnormal . NRBC x10^3 (test code 0.06 See_Comment [Auto mated = 3887206032) message] The s ystem which generated this result transmitted reference range : 10*3/?L. The reference range was not used to interpret this result as normal/abnormal . GRAN MAT (NEUT) % 80.9 % (test code = 770-8) IMM GRAN % (test code 4.80 % = 4465867566) LYMPH % (test code = 8.6 % 736-9) MONO % (test code = 5.6 % 5905-5) EOS % (test code = 0.0 % 713-8) BASO % (test code = 0.1 % 706-2) GRAN MAT x10^3(ANC) 7.91 10*3/uL 1.99-6.95 H (test code = 2964992097) IMM GRAN x10^3 (test 0.47 10*3/uL 0.00-0.06 H code = 0575212620) LYMPH x10^3 (test code 0.84 10*3/uL 1.09-3.23 L = 731-0) MONO x10^3 (test code 0.55 10*3/uL 0.36-1.02 = 742-7) EOS x10^3 (test code = 0.06-0.53 L 711-2) BASO x10^3 (test code 0.01-0.09 = 704-7) Lab Interpretation Abnormal (test code = 75060-8) [facility] METABOLIC PANEL (NA, K, CL, CO2, GLUCOSE, BUN, CREATININE, CA)2022-06-04 05:32:04 Test Item Value Reference Range Interpretation Comments NA (test code = 136 mmol/L 135-145 6571657006) K (test code = 4.1 mmol/L 3.5-5.0 0926852832) CL (test code = 104 mmol/L 98-108 8658750553) CO2 TOTAL (test code = 25 mmol/L 23-31 3570493789) AGAP (test code = 7 2-16 1222849241) BUN (test code = 19 mg/dL 7-23 9769838146) GLUCOSE (test code = 166 mg/dL 70-110 H 1913721904) CREATININE (test code = 1.00 mg/dL 0.60-1.25 1986711334) CALCIUM (test code = 8.8 mg/dL 8.6-10.6 5216552436) eGFR (test code = 76.5 mL/min/1.73m2 5120444971) DEWAYNE (test code = DEWAYNE) Association of [...] tests). Lab Interpretation Abnormal (test code = 28083-3) [facility] (NA, K, CL, CO2, GLUCOSE, BUN, CREATININE, CA)2022-06-04 05:32:04 Test Item Value Reference Range Interpretation Comments NA (test code = 136 mmol/L 135-145 7627157238) K (test code = 4.1 mmol/L 3.5-5.0 0232812941) CL (test code = 104 mmol/L 98-108 5592164235) CO2 TOTAL (test code = 25 mmol/L 23-31 2790305280) AGAP (test code = 7 2-16 7691460779) BUN (test code = 19 mg/dL 7-23 0816466555) GLUCOSE (test code = 166 mg/dL 70-110 H 7258072799) CREATININE (test code = 1.00 mg/dL 0.60-1.25 0110426516) CALCIUM (test code = 8.8 mg/dL 8.6-10.6 8468929723) eGFR (test code = 76.5 mL/min/1.73m2 4227480059) DEWAYNE (test code = DEWAYNE) Association of [...] tests). Lab Interpretation Abnormal (test code = 10473-6) [facility] (for use with Heparin Drip)2022-06-04 05:24:43 Test Item Value Reference Range Interpretation Comments APTT Patient (test code 105 See_Comment [Au tomated message] = 3173-2) The system [employer] generated this result transmitted ref erence range: 26 - 36 Seconds. The reference range was not used to int erpret this result as normal/abnormal . Lab Interpretation (test Abnormal code = 21202-1) [facility] (for use with Heparin Drip)2022-06-04 05:24:43 Test Item Value Reference Range Interpretation Comments APTT Patient (test code 105 See_Comment [Au tomated message] = 3173-2) The system [employer] generated this result transmitted ref erence range: 26 - 36 Seconds. The reference range was not used to int erpret this result as normal/abnormal . Lab Interpretation (test Abnormal code = 95675-3) [facility]+K+GLU+CA2+2022-06-04 02:57:07 Test Item Value Reference Range Interpretation Comments PH (test code = 2) 7.31 7.35-7.45 L PCO2 (test code = 42 See_Comment [Automate d message] 6282651927) The system [employer] generated this result transmit elizabeth reference range : 35 - 45 mmHg. The reference range was not used to interpret this result as normal/abnormal . PO2 (test code = 144 See_Comment H [Automated message] 6714907674) The system [employer] generated this result transmit elizabeth reference range : 80 - 100 mmHg. The reference range was not used to interpret this result as normal/abnormal . HCO3 (test code = 21 See_Comment L [Automate d message] 5371493313) The system [employer] generated this result transmit elizabeth reference range : 22 - 26 mEq/L. The reference range was not used to interpret this result as normal/abnormal . BE (test code = -4.8 See_Comment L [Automated message] 7604007378) The system [employer] generated this result transmit elizabeth reference range : -3.0 - 3.0 mEq/ L. The reference r mitra was not used to interpret this result as normal/abnormal . THB (test code = 9.6 g/dL 13.5-18.0 L 0401211518) %O2HB (test code = 98.4 % 94.0-99.0 7208347407) %COHB ART (test code = 0.1 % 0.0-1.5 3519939844) %METHB ART (test code = 0.1 % 0.4-1.5 L 3142084875) VOL%O2 ART (test code = 13.6 % 15.0-23.0 L QUES 2020440600) NA (test code = 133 mmol/L 135-145 L 9363651505) K+ (test code = 4.6 mmol/L 3.5-5.0 5570187357) AC CA IONZ (test code = 4.40 mg/dL 4.50-5.30 L 8967890744) GLUCOSE (test code = 148 mg/dL 70-110 H 7215252341) Lab Interpretation Abnormal (test code = 44915-6) [facility]CA2+[facility]22-06-04 02:57:07 Test Item Value Reference Range Interpretation Comments PH (test code = 2) 7.31 7.35-7.45 L PCO2 (test code = 42 See_Comment [Automate d message] 6341310278) The system [employer] generated this result transmit elizabeth reference range : 35 - 45 mmHg. The reference range was not used to interpret this result as normal/abnormal . PO2 (test code = 144 See_Comment H [Automated message] 0670103629) The system [employer] generated this result transmit elizabeth reference range : 80 - 100 mmHg. The reference range was not used to interpret this result as normal/abnormal . HCO3 (test code = 21 See_Comment L [Automate d message] 4989763825) The system [employer] generated this result transmit elizabeth reference range : 22 - 26 mEq/L. The reference range was not used to interpret this result as normal/abnormal . BE (test code = -4.8 See_Comment L [Automated message] 1505116157) The system [employer] generated this result transmit elizabeth reference range : -3.0 - 3.0 mEq/ L. The reference r mitra was not used to interpret this result as normal/abnormal . THB (test code = 9.6 g/dL 13.5-18.0 L 1887626291) %O2HB (test code = 98.4 % 94.0-99.0 3350053790) %COHB ART (test code = 0.1 % 0.0-1.5 5274862444) %METHB ART (test code = 0.1 % 0.4-1.5 L 7308295575) VOL%O2 ART (test code = 13.6 % 15.0-23.0 L QUES 4565984939) NA (test code = 133 mmol/L 135-145 L 4915591678) K+ (test code = 4.6 mmol/L 3.5-5.0 0102380801) AC CA IONZ (test code = 4.40 mg/dL 4.50-5.30 L 0875946297) GLUCOSE (test code = 148 mg/dL 70-110 H 0954608350) Lab Interpretation Abnormal (test code = 99820-0) [facility]+GLU+CA2+2022-06-04 02:55:52 Test Item Value Reference Range Interpretation Comments PH (test code = 2) 7.31 7.35-7.45 L PCO2 (test code = 38 See_Comment [Automate d message] 8759752093) The system [employer] generated this result transmit elizabeth reference range : 35 - 45 mmHg. The reference range was not used to interpret this result as normal/abnormal . PO2 (test code = 180 See_Comment H [Automated message] 2608592930) The system [employer] generated this result transmit elizabeth reference range : 80 - 100 mmHg. The reference range was not used to interpret this result as normal/abnormal . HCO3 (test code = 19 See_Comment L [Automate d message] 1931388407) The system [employer] generated this result transmit elizabeth reference range : 22 - 26 mEq/L. The reference range was not used to interpret this result as normal/abnormal . BE (test code = -7.2 See_Comment L [Automated message] 3133595605) The system [employer] generated this result transmit elizabeth reference range : -3.0 - 3.0 mEq/ L. The reference r mitra was not used to interpret this result as normal/abnormal . THB (test code = 8.4 g/dL 13.5-18.0 L 5205666506) %O2HB (test code = 98.1 % 94.0-99.0 2096780632) %COHB ART (test code = 0.4 % 0.0-1.5 1178775498) %METHB ART (test code = 0.3 % 0.4-1.5 L 2403029314) VOL%O2 ART (test code = 12.0 % 15.0-23.0 L QUES 3165054535) NA (test code = 135 mmol/L 135-145 4677483931) K+ (test code = 4.1 mmol/L 3.5-5.0 7936996914) AC CA IONZ (test code = 4.90 mg/dL 4.50-5.30 1010878759) GLUCOSE (test code = 128 mg/dL 70-110 H 6802565926) Lab Interpretation Abnormal (test code = 38546-2) [facility]GLU+CA2+2022-06-04 02:55:52 Test Item Value Reference Range Interpretation Comments PH (test code = 2) 7.31 7.35-7.45 L PCO2 (test code = 38 See_Comment [Automate d message] 0134624309) The system [employer] generated this result transmit elizabeth reference range : 35 - 45 mmHg. The reference range was not used to interpret this result as normal/abnormal . PO2 (test code = 180 See_Comment H [Automated message] 2805569895) The system [employer] generated this result transmit elizabeth reference range : 80 - 100 mmHg. The reference range was not used to interpret this result as normal/abnormal . HCO3 (test code = 19 See_Comment L [Automate d message] 7901227511) The system [employer] generated this result transmit elizabeth reference range : 22 - 26 mEq/L. The reference range was not used to interpret this result as normal/abnormal . BE (test code = -7.2 See_Comment L [Automated message] 6072579627) The system [employer] generated this result transmit elizabeth reference range : -3.0 - 3.0 mEq/ L. The reference r mitra was not used to interpret this result as normal/abnormal . THB (test code = 8.4 g/dL 13.5-18.0 L 6263950718) %O2HB (test code = 98.1 % 94.0-99.0 4745907368) %COHB ART (test code = 0.4 % 0.0-1.5 3018232422) %METHB ART (test code = 0.3 % 0.4-1.5 L 0384068969) VOL%O2 ART (test code = 12.0 % 15.0-23.0 L QUES 6549481133) NA (test code = 135 mmol/L 135-145 0897688886) K+ (test code = 4.1 mmol/L 3.5-5.0 9579229977) AC CA IONZ (test code = 4.90 mg/dL 4.50-5.30 5053487177) GLUCOSE (test code = 128 mg/dL 70-110 H 7901722455) Lab Interpretation Abnormal (test code = 44093-6) [facility] [id number] 13:22:00 Test Item Value Reference Range Interpretation Comments ABO & RH (test code = 20) AB POSITIVE IAT (test code = 1185) Negative [facility] [id number] 13:22:00 Test Item Value Reference Range Interpretation Comments ABO & RH (test code = 20) AB POSITIVE IAT (test code = 1185) Negative [facility] WITH [id number] 11:35:29 Test Item Value Reference Range Interpretation Comments WBC (test code = 11.02 See_Comment H [Automated 0843-2) message] The sy stem which generated this result transmitted reference range : 4.20 - 10.70 10*3/?L. The reference range was not used to interpret this result as normal/abnormal . RBC (test code = 3.21 See_Comment L [Automated 909-8) message] The sy [...] RDW-SD (test code = 50.8 fL 38.5-51.6 98218-6) RDW-CV (test code = 15.9 % 12.1-15.4 H 788-0) PLT (test code = 265 See_Comment [Automated 777-3) message] The sy stem which generated this result transmitted reference range : 150 - 328 10*3/ ?L. The reference r mitra was not used to interpret this result as normal/abnormal . MPV (test code = 9.0 fL 9.8-13.0 L 92109-4) NRBC/100 WBC (test 0.5 See_Comment [Automat ed code = 3657988915) message] The system which generated this result transmitted reference range : 0.0 - 10.0 /100 WBCs. The refer ence range was not u sed to interpret th is result as normal/abnormal . NRBC x10^3 (test code 0.06 See_Comment [Auto mated = 9745352710) message] The s ystem which generated this result transmitted reference range : 10*3/?L. The reference range was not used to interpret this result as normal/abnormal . GRAN MAT (NEUT) % 67.4 % (test code = 770-8) IMM GRAN % (test code 5.90 % = 3550882609) LYMPH % (test code = 13.6 % 736-9) MONO % (test code = 8.5 % 5905-5) EOS % (test code = 4.1 % 713-8) BASO % (test code = 0.5 % 706-2) GRAN MAT x10^3(ANC) 7.42 10*3/uL 1.99-6.95 H (test code = 0096003862) IMM GRAN x10^3 (test 0.65 10*3/uL 0.00-0.06 H code = 5851537531) LYMPH x10^3 (test code 1.50 10*3/uL 1.09-3.23 = 731-0) MONO x10^3 (test code 0.94 10*3/uL 0.36-1.02 = 742-7) EOS x10^3 (test code = 0.45 10*3/uL 0.06-0.53 711-2) BASO x10^3 (test code 0.06 10*3/uL 0.01-0.09 = 704-7) Lab Interpretation Abnormal (test code = 01611-2) [facility] WITH [id number] 11:35:29 Test Item Value Reference Range Interpretation [...] RDW-SD (test code = 50.8 fL 38.5-51.6 66964-2) RDW-CV (test code = 15.9 % 12.1-15.4 H 788-0) PLT (test code = 265 See_Comment [Automated 777-3) message] The sy stem which generated this result transmitted reference range : 150 - 328 10*3/ ?L. The reference r mitra was not used to interpret this result as normal/abnormal . MPV (test code = 9.0 fL 9.8-13.0 L 44340-7) NRBC/100 WBC (test 0.5 See_Comment [Automat ed code = 2840600150) message] The system which generated this result transmitted reference range : 0.0 - 10.0 /100 WBCs. The refer ence range was not u sed to interpret th is result as normal/abnormal . NRBC x10^3 (test code 0.06 See_Comment [Auto mated = 3266854258) message] The s ystem which generated this result transmitted reference range : 10*3/?L. The reference range was not used to interpret this result as normal/abnormal . GRAN MAT (NEUT) % 67.4 % (test code = 770-8) IMM GRAN % (test code 5.90 % = 9648368851) LYMPH % (test code = 13.6 % 736-9) MONO % (test code = 8.5 % 5905-5) EOS % (test code = 4.1 % 713-8) BASO % (test code = 0.5 % 706-2) GRAN MAT x10^3(ANC) 7.42 10*3/uL 1.99-6.95 H (test code = 6504827392) IMM GRAN x10^3 (test 0.65 10*3/uL 0.00-0.06 H code = 8803916701) LYMPH x10^3 (test code 1.50 10*3/uL 1.09-3.23 = 731-0) MONO x10^3 (test code 0.94 10*3/uL 0.36-1.02 = 742-7) EOS x10^3 (test code = 0.45 10*3/uL 0.06-0.53 711-2) BASO x10^3 (test code 0.06 10*3/uL 0.01-0.09 = 704-7) Lab Interpretation Abnormal (test code = 27831-0) [facility] Test Item Value Reference Range Interpretation Comments MAGNESIUM (test code = 2345864304) 2.4 mg/dL 1.7-2.4 Lab Interpretation (test code = Normal 21509-4) [facility] 11:30:46 Test Item Value Reference Range Interpretation Comments PHOSPHORUS (test code = 5002621417) 4.8 mg/dL 2.5-5.0 Lab Interpretation (test code = Normal 94776-8) [facility] (NA, K, CL, CO2, GLUCOSE, BUN, CREATININE, CA)2022-06-03 11:30:46 Test Item Value Reference Range Interpretation Comments NA (test code = 136 mmol/L 135-145 4784681787) K (test code = 4.2 mmol/L 3.5-5.0 8459868024) CL (test code = 104 mmol/L 98-108 0383562903) CO2 TOTAL (test code 26 mmol/L 23-31 = 1864841793) AGAP (test code = 6 2-16 6420150098) BUN (test code = 18 mg/dL 7-23 2726656317) GLUCOSE (test code = 103 mg/dL 70-110 8717349814) CREATININE (test code 1.08 mg/dL 0.60-1.25 = 3513108720) CALCIUM (test code = 8.7 mg/dL 8.6-10.6 3485259633) eGFR (test code = 70.0 mL/min/1.73m2 0066045474) DEWAYNE (test code = DEWAYNE) Association of [...] or urine or abnormalities in imaging tests). [facility]-21 11:30:46 Test Item Value Reference Range Interpretation Comments MAGNESIUM (test code = 6501786954) 2.4 mg/dL 1.7-2.4 Lab Interpretation (test code = Normal 33829-1) [facility]21 11:30:46 Test Item Value Reference Range Interpretation Comments PHOSPHORUS (test code = 3127602843) 4.8 mg/dL 2.5-5.0 Lab Interpretation (test code = Normal 46005-7) [facility] (NA, K, CL, CO2, GLUCOSE, BUN, CREATININE, CA)2022-06-03 11:30:46 Test Item Value Reference Range Interpretation Comments NA (test code = 136 mmol/L 135-145 8935925863) K (test code = 4.2 mmol/L 3.5-5.0 7110874420) CL (test code = 104 mmol/L 98-108 4142760749) CO2 TOTAL (test code 26 mmol/L 23-31 = 2270404898) AGAP (test code = 6 2-16 0962671478) BUN (test code = 18 mg/dL 7-23 3623775529) GLUCOSE (test code = 103 mg/dL 70-110 2432865719) CREATININE (test code 1.08 mg/dL 0.60-1.25 = 5810872412) CALCIUM (test code = 8.7 mg/dL 8.6-10.6 9807929381) eGFR (test code = 70.0 mL/min/1.73m2 6142604557) DEWAYNE (test code = DEWAYNE) Association of [...] or urine or abnormalities in imaging tests). [facility] (for use with Heparin Drip)2022-06-03 11:15:05 Test Item Value Reference Range Interpretation Comments APTT Patient (test code 52 See_Comment H [Au tomated message] = 3173-2) The system [employer] generated this result transmitted ref erence range: 26 - 36 Seconds. The reference range was not used to int erpret this result as normal/abnormal . Lab Interpretation (test Abnormal code = 23954-4) [facility] (for use with Heparin Drip)2022-06-03 11:15:05 Test Item Value Reference Range Interpretation Comments APTT Patient (test code 52 See_Comment H [Au tomated message] = 3173-2) The system [employer] generated this result transmitted ref erence range: 26 - 36 Seconds. The reference range was not used to int erpret this result as normal/abnormal . Lab Interpretation (test Abnormal code = 28523-6) [facility] METABOLIC PANEL (NA, K, CL, CO2, GLUCOSE, BUN, CREATININE, CA)2022-06-02 13:56:04 Test Item Value Reference Range Interpretation Comments NA (test code = 137 mmol/L 135-145 2749394012) K (test code = 4.4 mmol/L 3.5-5.0 5147481160) CL (test code = 105 mmol/L 98-108 9194223267) CO2 TOTAL (test code 27 mmol/L 23-31 = 5206395129) AGAP (test code = 5 2-16 1853590546) BUN (test code = 19 mg/dL 7-23 5936230533) GLUCOSE (test code = 92 mg/dL 70-110 9265038889) CREATININE (test code 0.96 mg/dL 0.60-1.25 = 2636042528) CALCIUM (test code = 8.7 mg/dL 8.6-10.6 4282720792) eGFR (test code = 80.2 mL/min/1.73m2 7703679666) DEWAYNE (test code = DEWAYNE) Association of [...] or urine or abnormalities in imaging tests). [facility] METABOLIC PANEL (NA, K, CL, CO2, GLUCOSE, BUN, CREATININE, CA)2022-06-02 13:56:04 Test Item Value Reference Range Interpretation Comments NA (test code = 137 mmol/L 135-145 4132956208) K (test code = 4.4 mmol/L 3.5-5.0 8676050239) CL (test code = 105 mmol/L 98-108 2695941435) CO2 TOTAL (test code 27 mmol/L 23-31 = 1018514059) AGAP (test code = 5 2-16 9939156131) BUN (test code = 19 mg/dL 7-23 2576307073) GLUCOSE (test code = 92 mg/dL 70-110 3926597883) CREATININE (test code 0.96 mg/dL 0.60-1.25 = 3140637258) CALCIUM (test code = 8.7 mg/dL 8.6-10.6 9364776595) eGFR (test code = 80.2 mL/min/1.73m2 7519208604) DEWAYNE (test code = DEWAYNE) Association of [...] or urine or abnormalities in imaging tests). [facility] WITH [id number] 11:30:12 Test Item Value Reference Range Interpretation [...] RDW-SD (test code = 50.1 fL 38.5-51.6 92333-2) RDW-CV (test code = 15.8 % 12.1-15.4 H 788-0) PLT (test code = 239 See_Comment [Automated 777-3) message] The sy stem which generated this result transmitted reference range : 150 - 328 10*3/ ?L. The reference r mitra was not used to interpret this result as normal/abnormal . MPV (test code = 9.1 fL 9.8-13.0 L 15357-8) NRBC/100 WBC (test 0.8 See_Comment [Automat ed code = 8929657361) message] The system which generated this result transmitted reference range : 0.0 - 10.0 /100 WBCs. The refer ence range was not u sed to interpret th is result as normal/abnormal . NRBC x10^3 (test code 0.07 See_Comment [Auto mated = 1609189118) message] The s ystem which generated this result transmitted reference range : 10*3/?L. The reference range was not used to interpret this result as normal/abnormal . GRAN MAT (NEUT) % 56.4 % (test code = 770-8) IMM GRAN % (test code 6.70 % = 2421038396) LYMPH % (test code = 23.9 % 736-9) MONO % (test code = 7.3 % 5905-5) EOS % (test code = 4.9 % 713-8) BASO % (test code = 0.8 % 706-2) GRAN MAT x10^3(ANC) 4.93 10*3/uL 1.99-6.95 (test code = 9797179782) IMM GRAN x10^3 (test 0.59 10*3/uL 0.00-0.06 H code = 0945133126) LYMPH x10^3 (test code 2.09 10*3/uL 1.09-3.23 = 731-0) MONO x10^3 (test code 0.64 10*3/uL 0.36-1.02 = 742-7) EOS x10^3 (test code = 0.43 10*3/uL 0.06-0.53 711-2) BASO x10^3 (test code 0.07 10*3/uL 0.01-0.09 = 704-7) Lab Interpretation Abnormal (test code = 19103-4) [facility] WITH [id number] 11:30:12 Test Item Value Reference Range Interpretation [...] RDW-SD (test code = 50.1 fL 38.5-51.6 96248-0) RDW-CV (test code = 15.8 % 12.1-15.4 H 788-0) PLT (test code = 239 See_Comment [Automated 777-3) message] The sy stem which generated this result transmitted reference range : 150 - 328 10*3/ ?L. The reference r mitra was not used to interpret this result as normal/abnormal . MPV (test code = 9.1 fL 9.8-13.0 L 57691-4) NRBC/100 WBC (test 0.8 See_Comment [Automat ed code = 3514974675) message] The system which generated this result transmitted reference range : 0.0 - 10.0 /100 WBCs. The refer ence range was not u sed to interpret th is result as normal/abnormal . NRBC x10^3 (test code 0.07 See_Comment [Auto mated = 6724229797) message] The s ystem which generated this result transmitted reference range : 10*3/?L. The reference range was not used to interpret this result as normal/abnormal . GRAN MAT (NEUT) % 56.4 % (test code = 770-8) IMM GRAN % (test code 6.70 % = 9651252281) LYMPH % (test code = 23.9 % 736-9) MONO % (test code = 7.3 % 5905-5) EOS % (test code = 4.9 % 713-8) BASO % (test code = 0.8 % 706-2) GRAN MAT x10^3(ANC) 4.93 10*3/uL 1.99-6.95 (test code = 0564607111) IMM GRAN x10^3 (test 0.59 10*3/uL 0.00-0.06 H code = 2011605029) LYMPH x10^3 (test code 2.09 10*3/uL 1.09-3.23 = 731-0) MONO x10^3 (test code 0.64 10*3/uL 0.36-1.02 = 742-7) EOS x10^3 (test code = 0.43 10*3/uL 0.06-0.53 711-2) BASO x10^3 (test code 0.07 10*3/uL 0.01-0.09 = 704-7) Lab Interpretation Abnormal (test code = 03236-3) [facility] Test Item Value Reference Range Interpretation Comments MAGNESIUM (test code = 6596337532) 2.3 mg/dL 1.7-2.4 Lab Interpretation (test code = Normal 64079-4) [facility] 11:16:48 Test Item Value Reference Range Interpretation Comments PHOSPHORUS (test code = 3548236496) 4.8 mg/dL 2.5-5.0 Lab Interpretation (test code = Normal 13186-2) [facility] 11:16:48 Test Item Value Reference Range Interpretation Comments MAGNESIUM (test code = 0351178267) 2.3 mg/dL 1.7-2.4 Lab Interpretation (test code = Normal 14131-9) [facility] 11:16:48 Test Item Value Reference Range Interpretation Comments PHOSPHORUS (test code = 3662798504) 4.8 mg/dL 2.5-5.0 Lab Interpretation (test code = Normal 17062-4) [facility] WITH [id number] 11:58:20 Test Item Value Reference Range Interpretation [...] RDW-SD (test code = 48.3 fL 38.5-51.6 01381-9) RDW-CV (test code = 15.2 % 12.1-15.4 788-0) PLT (test code = 181 See_Comment [Automated 777-3) message] The sy stem which generated this result transmitted reference range : 150 - 328 10*3/ ?L. The reference r mitra was not used to interpret this result as normal/abnormal . MPV (test code = 9.4 fL 9.8-13.0 L 81792-1) NRBC/100 WBC (test 0.3 See_Comment [Automat ed code = 0471721308) message] The system which generated this result transmitted reference range : 0.0 - 10.0 /100 WBCs. The refer ence range was not u sed to interpret th is result as normal/abnormal . NRBC x10^3 (test code 0.03 See_Comment [Auto mated = 8696787421) message] The s ystem which generated this result transmitted reference range : 10*3/?L. The reference range was not used to interpret this result as normal/abnormal . GRAN MAT (NEUT) % 59.7 % (test code = 770-8) IMM GRAN % (test code 5.80 % = 9786866427) LYMPH % (test code = 21.3 % 736-9) MONO % (test code = 8.7 % 5905-5) EOS % (test code = 4.1 % 713-8) BASO % (test code = 0.4 % 706-2) GRAN MAT x10^3(ANC) 5.49 10*3/uL 1.99-6.95 (test code = 4779622048) IMM GRAN x10^3 (test 0.53 10*3/uL 0.00-0.06 H code = 5246536373) LYMPH x10^3 (test code 1.96 10*3/uL 1.09-3.23 = 731-0) MONO x10^3 (test code 0.80 10*3/uL 0.36-1.02 = 742-7) EOS x10^3 (test code = 0.38 10*3/uL 0.06-0.53 711-2) BASO x10^3 (test code 0.04 10*3/uL 0.01-0.09 = 704-7) Lab Interpretation Abnormal (test code = 66809-9) [facility] WITH [id number] 11:58:20 Test Item Value Reference Range Interpretation [...] RDW-SD (test code = 48.3 fL 38.5-51.6 75421-1) RDW-CV (test code = 15.2 % 12.1-15.4 788-0) PLT (test code = 181 See_Comment [Automated 777-3) message] The sy stem which generated this result transmitted reference range : 150 - 328 10*3/ ?L. The reference r mitra was not used to interpret this result as normal/abnormal . MPV (test code = 9.4 fL 9.8-13.0 L 32957-5) NRBC/100 WBC (test 0.3 See_Comment [Automat ed code = 5670411254) message] The system which generated this result transmitted reference range : 0.0 - 10.0 /100 WBCs. The refer ence range was not u sed to interpret th is result as normal/abnormal . NRBC x10^3 (test code 0.03 See_Comment [Auto mated = 3385234317) message] The s ystem which generated this result transmitted reference range : 10*3/?L. The reference range was not used to interpret this result as normal/abnormal . GRAN MAT (NEUT) % 59.7 % (test code = 770-8) IMM GRAN % (test code 5.80 % = 3866702986) LYMPH % (test code = 21.3 % 736-9) MONO % (test code = 8.7 % 5905-5) EOS % (test code = 4.1 % 713-8) BASO % (test code = 0.4 % 706-2) GRAN MAT x10^3(ANC) 5.49 10*3/uL 1.99-6.95 (test code = 5286674479) IMM GRAN x10^3 (test 0.53 10*3/uL 0.00-0.06 H code = 6829296722) LYMPH x10^3 (test code 1.96 10*3/uL 1.09-3.23 = 731-0) MONO x10^3 (test code 0.80 10*3/uL 0.36-1.02 = 742-7) EOS x10^3 (test code = 0.38 10*3/uL 0.06-0.53 711-2) BASO x10^3 (test code 0.04 10*3/uL 0.01-0.09 = 704-7) Lab Interpretation Abnormal (test code = 34923-2) [facility] 11:41:55 Test Item Value Reference Range Interpretation Comments MAGNESIUM (test code = 9948986860) 2.3 mg/dL 1.7-2.4 Lab Interpretation (test code = Normal 33139-0) [facility] 11:41:55 Test Item Value Reference Range Interpretation Comments PHOSPHORUS (test code = 8263101790) 3.4 mg/dL 2.5-5.0 Lab Interpretation (test code = Normal 59322-2) [facility] (NA, K, CL, CO2, GLUCOSE, BUN, CREATININE, CA)2022-06-01 11:41:55 Test Item Value Reference Range Interpretation Comments NA (test code = 137 mmol/L 135-145 0406301444) K (test code = 4.1 mmol/L 3.5-5.0 8820001882) CL (test code = 105 mmol/L 98-108 7302628567) CO2 TOTAL (test code = 27 mmol/L 23-31 2176263006) AGAP (test code = 5 2-16 4813904709) BUN (test code = 17 mg/dL 7-23 3935799662) GLUCOSE (test code = 135 mg/dL 70-110 H 9964018315) CREATININE (test code = 0.84 mg/dL 0.60-1.25 8108311394) CALCIUM (test code = 8.4 mg/dL 8.6-10.6 L 4155240096) eGFR (test code = 93.5 mL/min/1.73m2 3686638541) DEWAYNE (test code = DEWAYNE) Association of [...] tests). Lab Interpretation Abnormal (test code = 80007-2) [facility]55 Test Item Value Reference Range Interpretation Comments MAGNESIUM (test code = 5722432070) 2.3 mg/dL 1.7-2.4 Lab Interpretation (test code = Normal 41525-4) [facility] 11:41:55 Test Item Value Reference Range Interpretation Comments PHOSPHORUS (test code = 4840726634) 3.4 mg/dL 2.5-5.0 Lab Interpretation (test code = Normal 75283-1) [facility] (NA, K, CL, CO2, GLUCOSE, BUN, CREATININE, CA)2022-06-01 11:41:55 Test Item Value Reference Range Interpretation Comments NA (test code = 137 mmol/L 135-145 2278591230) K (test code = 4.1 mmol/L 3.5-5.0 2909983130) CL (test code = 105 mmol/L 98-108 0192724954) CO2 TOTAL (test code = 27 mmol/L 23-31 9583894769) AGAP (test code = 5 2-16 0886801689) BUN (test code = 17 mg/dL 7-23 8055906024) GLUCOSE (test code = 135 mg/dL 70-110 H 9754197028) CREATININE (test code = 0.84 mg/dL 0.60-1.25 6594658613) CALCIUM (test code = 8.4 mg/dL 8.6-10.6 L 9512421202) eGFR (test code = 93.5 mL/min/1.73m2 7776827874) DEWAYNE (test code = DEWAYNE) Association of [...] tests). Lab Interpretation Abnormal (test code = 03373-4) [facility] WITH [id number] 12:02:32 Test Item Value Reference Range Interpretation Comments WBC (test code = 9.82 See_Comment [Automated 1137-2) message] The sy stem which generated this [...] RDW-SD (test code = 46.6 fL 38.5-51.6 04345-2) RDW-CV (test code = 14.9 % 12.1-15.4 788-0) PLT (test code = 154 See_Comment [Automated 777-3) message] The sy stem which generated this result transmitted reference range : 150 - 328 10*3/ ?L. The reference r mitra was not used to interpret this result as normal/abnormal . MPV (test code = 9.5 fL 9.8-13.0 L 38715-9) NRBC/100 WBC (test 0.2 See_Comment [Automat ed code = 2067312782) message] The system which generated this result transmitted reference range : 0.0 - 10.0 /100 WBCs. The refer ence range was not u sed to interpret th is result as normal/abnormal . NRBC x10^3 (test code 0.02 See_Comment [Auto mated = 8394963141) message] The s ystem which generated this result transmitted reference range : 10*3/?L. The reference range was not used to interpret this result as normal/abnormal . GRAN MAT (NEUT) % 80.7 % (test code = 770-8) IMM GRAN % (test code 4.50 % = 0378781471) LYMPH % (test code = 6.5 % 736-9) MONO % (test code = 7.3 % 5905-5) EOS % (test code = 0.6 % 713-8) BASO % (test code = 0.4 % 706-2) GRAN MAT x10^3(ANC) 7.92 10*3/uL 1.99-6.95 H (test code = 9879110994) IMM GRAN x10^3 (test 0.44 10*3/uL 0.00-0.06 H code = 8777029979) LYMPH x10^3 (test code 0.64 10*3/uL 1.09-3.23 L = 731-0) MONO x10^3 (test code 0.72 10*3/uL 0.36-1.02 = 742-7) EOS x10^3 (test code = 0.06 10*3/uL 0.06-0.53 711-2) BASO x10^3 (test code 0.04 10*3/uL 0.01-0.09 = 704-7) MEAGHAN CELLS (test code 2+ See_Comment A [Auto mated = 3798-9) message] The sy stem which generated this result transmitted reference range : (none). The reference range was not used to interpret this result as normal/abnormal . REACT LYMPHS (test Rare code = 4846137636) Lab Interpretation Abnormal (test code = 64176-7) [facility] WITH [id number] 12:02:32 Test Item Value Reference Range Interpretation Comments WBC (test code = 9.82 See_Comment [Automated 3690-2) message] The sy stem which generated this result transmitted reference range : 4.20 - 10.70 10*3/?L. The reference range was not used to interpret this result as normal/abnormal . RBC (test code = 3.82 See_Comment L [Automated 839-8) message] The sy stem which generated this [...] RDW-SD (test code = 46.6 fL 38.5-51.6 32045-2) RDW-CV (test code = 14.9 % 12.1-15.4 788-0) PLT (test code = 154 See_Comment [Automated 777-3) message] The sy stem which generated this result transmitted reference range : 150 - 328 10*3/ ?L. The reference r mitra was not used to interpret this result as normal/abnormal . MPV (test code = 9.5 fL 9.8-13.0 L 56876-5) NRBC/100 WBC (test 0.2 See_Comment [Automat ed code = 0958986848) message] The system which generated this result transmitted reference range : 0.0 - 10.0 /100 WBCs. The refer ence range was not u sed to interpret th is result as normal/abnormal . NRBC x10^3 (test code 0.02 See_Comment [Auto mated = 8100414559) message] The s ystem which generated this result transmitted reference range : 10*3/?L. The reference range was not used to interpret this result as normal/abnormal . GRAN MAT (NEUT) % 80.7 % (test code = 770-8) IMM GRAN % (test code 4.50 % = 8420448448) LYMPH % (test code = 6.5 % 736-9) MONO % (test code = 7.3 % 5905-5) EOS % (test code = 0.6 % 713-8) BASO % (test code = 0.4 % 706-2) GRAN MAT x10^3(ANC) 7.92 10*3/uL 1.99-6.95 H (test code = 0111854920) IMM GRAN x10^3 (test 0.44 10*3/uL 0.00-0.06 H code = 1413674584) LYMPH x10^3 (test code 0.64 10*3/uL 1.09-3.23 L = 731-0) MONO x10^3 (test code 0.72 10*3/uL 0.36-1.02 = 742-7) EOS x10^3 (test code = 0.06 10*3/uL 0.06-0.53 711-2) BASO x10^3 (test code 0.04 10*3/uL 0.01-0.09 = 704-7) MEAGHAN CELLS (test code 2+ See_Comment A [Auto mated = 5390-9) message] The sy stem which generated this result transmitted reference range : (none). The reference range was not used to interpret this result as normal/abnormal . REACT LYMPHS (test Rare code = 9798470682) Lab Interpretation Abnormal (test code = 80584-3) [facility] WITH [id number] 12:02:32 Test Item Value Reference Range Interpretation Comments WBC (test code = 9.82 See_Comment [Automated 7190-2) message] The sy stem [...] RDW-SD (test code = 46.6 fL 38.5-51.6 85804-6) RDW-CV (test code = 14.9 % 12.1-15.4 788-0) PLT (test code = 154 See_Comment [Automated 777-3) message] The sy stem which generated this result transmitted reference range : 150 - 328 10*3/ ?L. The reference r mitra was not used to interpret this result as normal/abnormal . MPV (test code = 9.5 fL 9.8-13.0 L 23288-4) NRBC/100 WBC (test 0.2 See_Comment [Automat ed code = 7853675646) message] The system which generated this result transmitted reference range : 0.0 - 10.0 /100 WBCs. The refer ence range was not u sed to interpret th is result as normal/abnormal . NRBC x10^3 (test code 0.02 See_Comment [Auto mated = 1722629447) message] The s ystem which generated this result transmitted reference range : 10*3/?L. The reference range was not used to interpret this result as normal/abnormal . GRAN MAT (NEUT) % 80.7 % (test code = 770-8) IMM GRAN % (test code 4.50 % = 4172608258) LYMPH % (test code = 6.5 % 736-9) MONO % (test code = 7.3 % 5905-5) EOS % (test code = 0.6 % 713-8) BASO % (test code = 0.4 % 706-2) GRAN MAT x10^3(ANC) 7.92 10*3/uL 1.99-6.95 H (test code = 0927185254) IMM GRAN x10^3 (test 0.44 10*3/uL 0.00-0.06 H code = 4749844750) LYMPH x10^3 (test code 0.64 10*3/uL 1.09-3.23 L = 731-0) MONO x10^3 (test code 0.72 10*3/uL 0.36-1.02 = 742-7) EOS x10^3 (test code = 0.06 10*3/uL 0.06-0.53 711-2) BASO x10^3 (test code 0.04 10*3/uL 0.01-0.09 = 704-7) MEAGHAN CELLS (test code 2+ See_Comment A [Auto mated = 9933-3) message] The sy stem which generated this result transmitted reference range : (none). The reference range was not used to interpret this result as normal/abnormal . REACT LYMPHS (test Rare code = 1162403592) Lab Interpretation Abnormal (test code = 35875-7) [facility] 11:43:29 Test Item Value Reference Range Interpretation Comments MAGNESIUM (test code = 9198444926) 2.1 mg/dL 1.7-2.4 Lab Interpretation (test code = Normal 46370-6) [facility] 11:43:29 Test Item Value Reference Range Interpretation Comments PHOSPHORUS (test code = 3041072425) 3.7 mg/dL 2.5-5.0 Lab Interpretation (test code = Normal 46304-0) [facility] (NA, K, CL, CO2, GLUCOSE, BUN, CREATININE, CA)2022-05-31 11:43:29 Test Item Value Reference Range Interpretation Comments NA (test code = 133 mmol/L 135-145 L 3972693133) K (test code = 4.7 mmol/L 3.5-5.0 Slight 2626995499) hemolysis CL (test code = 104 mmol/L 98-108 6964274667) CO2 TOTAL (test code 25 mmol/L 23-31 = 3049133923) AGAP (test code = 4 2-16 9875978030) BUN (test code = 17 mg/dL 7-23 Slight 4843110443) hemolysis GLUCOSE (test code = 189 mg/dL 70-110 H 7979582846) CREATININE (test code 0.82 mg/dL 0.60-1.25 = 4055576875) CALCIUM (test code = 8.0 mg/dL 8.6-10.6 L 2956186021) eGFR (test code = 96.2 mL/min/1.73m2 7569947070) DEWAYNE (test code = DEWAYNE) Association of [...] tests). Lab Interpretation Abnormal (test code = 16347-6) [facility] 11:43:29 Test Item Value Reference Range Interpretation Comments MAGNESIUM (test code = 3875918475) 2.1 mg/dL 1.7-2.4 Lab Interpretation (test code = Normal 90156-2) [facility] 11:43:29 Test Item Value Reference Range Interpretation Comments PHOSPHORUS (test code = 7722584607) 3.7 mg/dL 2.5-5.0 Lab Interpretation (test code = Normal 67203-6) [facility] (NA, K, CL, CO2, GLUCOSE, BUN, CREATININE, CA)2022-05-31 11:43:29 Test Item Value Reference Range Interpretation Comments NA (test code = 133 mmol/L 135-145 L 4571923327) K (test code = 4.7 mmol/L 3.5-5.0 Slight 0655537002) hemolysis CL (test code = 104 mmol/L 98-108 8346753549) CO2 TOTAL (test code 25 mmol/L 23-31 = 9945479777) AGAP (test code = 4 2-16 8834855098) BUN (test code = 17 mg/dL 7-23 Slight 0766872441) hemolysis GLUCOSE (test code = 189 mg/dL 70-110 H 2459590733) CREATININE (test code 0.82 mg/dL 0.60-1.25 = 0589928328) CALCIUM (test code = 8.0 mg/dL 8.6-10.6 L 3816870780) eGFR (test code = 96.2 mL/min/1.73m2 9538614189) DEWAYNE (test code = DEWAYNE) Association of [...] tests). Lab Interpretation Abnormal (test code = 85186-1) [facility] 11:43:29 Test Item Value Reference Range Interpretation Comments MAGNESIUM (test code = 3318392870) 2.1 mg/dL 1.7-2.4 Lab Interpretation (test code = Normal 54513-7) [facility] 11:43:29 Test Item Value Reference Range Interpretation Comments PHOSPHORUS (test code = 2757482695) 3.7 mg/dL 2.5-5.0 Lab Interpretation (test code = Normal 95160-9) [facility] METABOLIC PANEL (NA, K, CL, CO2, GLUCOSE, BUN, CREATININE, CA)2022-05-31 11:43:29 Test Item Value Reference Range Interpretation Comments NA (test code = 133 mmol/L 135-145 L 9710204644) K (test code = 4.7 mmol/L 3.5-5.0 Slight 9296441776) hemolysis CL (test code = 104 mmol/L 98-108 9375159722) CO2 TOTAL (test code 25 mmol/L 23-31 = 9391994677) AGAP (test code = 4 2-16 4458720537) BUN (test code = 17 mg/dL 7-23 Slight 5754978094) hemolysis GLUCOSE (test code = 189 mg/dL 70-110 H 6971711887) CREATININE (test code 0.82 mg/dL 0.60-1.25 = 8220176011) CALCIUM (test code = 8.0 mg/dL 8.6-10.6 L 8371755176) eGFR (test code = 96.2 mL/min/1.73m2 3180771722) DEWAYNE (test code = DEWAYNE) Association of [...] tests). Lab Interpretation Abnormal (test code = 18662-3) [facility] 11:30:44 Test Item Value Reference Range Interpretation Comments Fibrinogen (test code = 1362838406) 218 mg/dL 167-453 Lab Interpretation (test code = Normal 14302-4) [facility] 11:30:44 Test Item Value Reference Range Interpretation Comments Fibrinogen (test code = 9081010524) 218 mg/dL 167-453 Lab Interpretation (test code = Normal 55980-3) [facility] Test Item Value Reference Range Interpretation Comments Fibrinogen (test code = 7231566171) 218 mg/dL 167-453 Lab Interpretation (test code = Normal 34066-6) [facility] / [id number] 11:29:02 Test Item Value Reference Range Interpretation Comments PROTIME PATIENT (test 12.7 See_Comment H [Auto mated message] code = 5964-2) The system [employer] generated this result transmitted ref erence range: 10.1 - 1 2.6 Seconds. The reference range was not used to int erpret this result as normal/abnormal . INR (test code = 6301-6) 1.1 Nor mal INR <1.1; Warfarin Therap eutic range 2.0 to 3. 0 or 2.5 to 3.5, dep ending upon the indica tions. Lab Interpretation (test Abnormal code = 18613-0) [facility] 11:29:02 Test Item Value Reference Range Interpretation Comments APTT Patient (test code 82 See_Comment H [Au tomated message] = 3173-2) The system [employer] generated this result transmitted ref erence range: 26 - 36 Seconds. The reference range was not used to int erpret this result as normal/abnormal . Lab Interpretation (test Abnormal code = 60434-1) [facility] / [id number] 11:29:02 Test Item Value Reference Range Interpretation Comments PROTIME PATIENT (test 12.7 See_Comment H [Auto mated message] code = 5964-2) The system [employer] generated this result transmitted ref erence range: 10.1 - 1 2.6 Seconds. The reference range was not used to int erpret this result as normal/abnormal . INR (test code = 6301-6) 1.1 Nor mal INR <1.1; Warfarin Therap eutic range 2.0 to 3. 0 or 2.5 to 3.5, dep ending upon the indica tions. Lab Interpretation (test Abnormal code = 07894-9) [facility] 11:29:02 Test Item Value Reference Range Interpretation Comments APTT Patient (test code 82 See_Comment H [Au tomated message] = 3173-2) The system [employer] generated this result transmitted ref erence range: 26 - 36 Seconds. The reference range was not used to int erpret this result as normal/abnormal . Lab Interpretation (test Abnormal code = 30873-0) [facility] Time / [id number] 11:29:02 Test Item Value Reference Range Interpretation Comments PROTIME PATIENT (test 12.7 See_Comment H [Auto mated message] code = 5964-2) The system [employer] generated this result transmitted ref erence range: 10.1 - 1 2.6 Seconds. The reference range was not used to int erpret this result as normal/abnormal . INR (test code = 6301-6) 1.1 Nor mal INR <1.1; Warfarin Therap eutic range 2.0 to 3. 0 or 2.5 to 3.5, dep ending upon the indica tions. Lab Interpretation (test Abnormal code = 67262-8) [facility]18 11:29:02 Test Item Value Reference Range Interpretation Comments APTT Patient (test code 82 See_Comment H [Au tomated message] = 3173-2) The system [employer] generated this result transmitted ref erence range: 26 - 36 Seconds. The reference range was not used to int erpret this result as normal/abnormal . Lab Interpretation (test Abnormal code = 72946-6) [facility]2023-04-18 02:12:17 Test Item Value Reference Range Interpretation Comments Fibrinogen (test code = 3804689736) 124 mg/dL 167-453 L Lab Interpretation (test code = Abnormal 67948-5) [place]013-04-18 02:12:17 Test Item Value Reference Range Interpretation Comments Fibrinogen (test code = 9440482782) 124 mg/dL 167-453 L Lab Interpretation (test code = Abnormal 96863-9) [facility]2023-04-18 02:12:17 Test Item Value Reference Range Interpretation Comments Fibrinogen (test code = 1853717976) 124 mg/dL 167-453 L Lab Interpretation (test code = Abnormal 27350-3) [facility]2023-04-17 22:27:11 Test Item Value Reference Range Interpretation Comments Fibrinogen (test code = 1988317133) 108 mg/dL 167-453 L Lab Interpretation (test code = Abnormal 66010-9) [facility]2023-04-17 22:27:11 Test Item Value Reference Range Interpretation Comments Fibrinogen (test code = 0879384906) 108 mg/dL 167-453 L Lab Interpretation (test code = Abnormal 38738-8) [facility]2023-04-17 22:27:11 Test Item Value Reference Range Interpretation Comments Fibrinogen (test code = 4052682303) 108 mg/dL 167-453 L Lab Interpretation (test code = Abnormal 55317-4) [facility]2023-04-17 18:54:36 Test Item Value Reference Range Interpretation Comments Fibrinogen (test code = 9276935273) 110 mg/dL 167-453 L Lab Interpretation (test code = Abnormal 36544-9) [place] 358013-04-17 18:54:36 Test Item Value Reference Range Interpretation Comments Fibrinogen (test code = 3776271864) 110 mg/dL 167-453 L Lab Interpretation (test code = Abnormal 96166-9) [place] [address]-04-17 18:54:36 Test Item Value Reference Range Interpretation Comments Fibrinogen (test code = 6372103626) 110 mg/dL 167-453 L Lab Interpretation (test code = Abnormal 17442-8) [facility]2023-04-17 18:54:36 Test Item Value Reference Range Interpretation Comments Fibrinogen (test code = 0961501350) 110 mg/dL 167-453 L Lab Interpretation (test code = Abnormal 93129-7) [facility]2023-04-17 15:54:43 Test Item Value Reference Range Interpretation Comments Fibrinogen (test code = 2607607171) 118 mg/dL 167-453 L Lab Interpretation (test code = Abnormal 31741-6) [facility]2023-04-17 15:54:43 Test Item Value Reference Range Interpretation Comments Fibrinogen (test code = 9064020392) 118 mg/dL 167-453 L Lab Interpretation (test code = Abnormal 25454-4) [facility]2023-04-17 15:54:43 Test Item Value Reference Range Interpretation Comments Fibrinogen (test code = 5461678176) 118 mg/dL 167-453 L Lab Interpretation (test code = Abnormal 68542-4) [facility]2023-04-17 15:54:43 Test Item Value Reference Range Interpretation Comments Fibrinogen (test code = 4421413813) 118 mg/dL 167-453 L Lab Interpretation (test code = Abnormal 21024-0) [facility]2023-04-17 13:43:27 Test Item Value Reference Range Interpretation Comments Fibrinogen (test code = 6235078275) 119 mg/dL 167-453 L Lab Interpretation (test code = Abnormal 77440-2) [facility]2023-04-17 13:43:27 Test Item Value Reference Range Interpretation Comments Fibrinogen (test code = 2686640330) 119 mg/dL 167-453 L Lab Interpretation (test code = Abnormal 67669-9) [facility]2023-04-17 13:43:27 Test Item Value Reference Range Interpretation Comments Fibrinogen (test code = 6205510582) 119 mg/dL 167-453 L Lab Interpretation (test code = Abnormal 62053-2) [address]04-17 13:43:27 Test Item Value Reference Range Interpretation Comments Fibrinogen (test code = 8539909186) 119 mg/dL 167-453 L Lab Interpretation (test code = Abnormal 15309-6) [facility]2023-04-17 11:50:10 Test Item Value Reference Range Interpretation Comments Fibrinogen (test code = 6021180341) 97 mg/dL 167-453 LL Lab Interpretation (test code = Abnormal 35451-9) [facility]2023-04-17 11:50:10 Test Item Value Reference Range Interpretation Comments Fibrinogen (test code = 1598294825) 97 mg/dL 167-453 LL Lab Interpretation (test code = Abnormal 89078-1) [facility]2023-04-17 11:50:10 Test Item Value Reference Range Interpretation Comments Fibrinogen (test code = 6385649348) 97 mg/dL 167-453 LL Lab Interpretation (test code = Abnormal 42456-5) [facility]2023-04-17 11:50:10 Test Item Value Reference Range Interpretation Comments Fibrinogen (test code = 1525172209) 97 mg/dL 167-453 LL Lab Interpretation (test code = Abnormal 17755-1) [facility] WITH [id number] 10:13:04 Test Item Value Reference Range Interpretation Comments WBC (test code = 9.36 See_Comment [Automated 4090-2) message] The sy stem which generated this result transmitted reference range : 4.20 - 10.70 10*3/?L. The reference range was not used to interpret this result as normal/abnormal . RBC (test code = 4.03 See_Comment L [Automated 147-8) message] The sy stem which generated this [...] RDW-SD (test code = 45.3 fL 38.5-51.6 15024-4) RDW-CV (test code = 14.5 % 12.1-15.4 788-0) PLT (test code = 174 See_Comment [Automated 777-3) message] The sy stem which generated this result transmitted reference range : 150 - 328 10*3/ ?L. The reference r mitra was not used to interpret this result as normal/abnormal . MPV (test code = 8.9 fL 9.8-13.0 L 04996-8) NRBC/100 WBC (test 0.3 See_Comment [Automat ed code = 2026367174) message] The system which generated this result transmitted reference range : 0.0 - 10.0 /100 WBCs. The refer ence range was not u sed to interpret th is result as normal/abnormal . NRBC x10^3 (test code 0.03 See_Comment [Auto mated = 9644515649) message] The s ystem which generated this result transmitted reference range : 10*3/?L. The reference range was not used to interpret this result as normal/abnormal . GRAN MAT (NEUT) % 63.0 % (test code = 770-8) IMM GRAN % (test code 3.60 % = 3196192230) LYMPH % (test code = 17.5 % 736-9) MONO % (test code = 10.8 % 5905-5) EOS % (test code = 4.5 % 713-8) BASO % (test code = 0.6 % 706-2) GRAN MAT x10^3(ANC) 5.89 10*3/uL 1.99-6.95 (test code = 1394318998) IMM GRAN x10^3 (test 0.34 10*3/uL 0.00-0.06 H code = 6287889996) LYMPH x10^3 (test code 1.64 10*3/uL 1.09-3.23 = 731-0) MONO x10^3 (test code 1.01 10*3/uL 0.36-1.02 = 742-7) EOS x10^3 (test code = 0.42 10*3/uL 0.06-0.53 711-2) BASO x10^3 (test code 0.06 10*3/uL 0.01-0.09 = 704-7) REACT LYMPHS (test Rare code = 2291165607) Lab Interpretation Abnormal (test code = 79839-4) [facility] WITH [id number] 10:13:04 Test Item Value Reference Range Interpretation [...] RDW-SD (test code = 45.3 fL 38.5-51.6 43401-7) RDW-CV (test code = 14.5 % 12.1-15.4 788-0) PLT (test code = 174 See_Comment [Automated 777-3) message] The sy stem which generated this result transmitted reference range : 150 - 328 10*3/ ?L. The reference r mitra was not used to interpret this result as normal/abnormal . MPV (test code = 8.9 fL 9.8-13.0 L 83615-2) NRBC/100 WBC (test 0.3 See_Comment [Automat ed code = 2287068333) message] The system which generated this result transmitted reference range : 0.0 - 10.0 /100 WBCs. The refer ence range was not u sed to interpret th is result as normal/abnormal . NRBC x10^3 (test code 0.03 See_Comment [Auto mated = 1713165947) message] The s ystem which generated this result transmitted reference range : 10*3/?L. The reference range was not used to interpret this result as normal/abnormal . GRAN MAT (NEUT) % 63.0 % (test code = 770-8) IMM GRAN % (test code 3.60 % = 1334592775) LYMPH % (test code = 17.5 % 736-9) MONO % (test code = 10.8 % 5905-5) EOS % (test code = 4.5 % 713-8) BASO % (test code = 0.6 % 706-2) GRAN MAT x10^3(ANC) 5.89 10*3/uL 1.99-6.95 (test code = 1644250924) IMM GRAN x10^3 (test 0.34 10*3/uL 0.00-0.06 H code = 0245298671) LYMPH x10^3 (test code 1.64 10*3/uL 1.09-3.23 = 731-0) MONO x10^3 (test code 1.01 10*3/uL 0.36-1.02 = 742-7) EOS x10^3 (test code = 0.42 10*3/uL 0.06-0.53 711-2) BASO x10^3 (test code 0.06 10*3/uL 0.01-0.09 = 704-7) REACT LYMPHS (test Rare code = 9411537935) Lab Interpretation Abnormal (test code = 91452-4) [facility] WITH [id number] 10:13:04 Test Item Value Reference Range Interpretation Comments WBC (test code = 9.36 See_Comment [Automated 8622-2) message] The sy stem which generated this [...] RDW-SD (test code = 45.3 fL 38.5-51.6 89566-7) RDW-CV (test code = 14.5 % 12.1-15.4 788-0) PLT (test code = 174 See_Comment [Automated 777-3) message] The sy stem which generated this result transmitted reference range : 150 - 328 10*3/ ?L. The reference r mitra was not used to interpret this result as normal/abnormal . MPV (test code = 8.9 fL 9.8-13.0 L 18686-9) NRBC/100 WBC (test 0.3 See_Comment [Automat ed code = 0964146576) message] The system which generated this result transmitted reference range : 0.0 - 10.0 /100 WBCs. The refer ence range was not u sed to interpret th is result as normal/abnormal . NRBC x10^3 (test code 0.03 See_Comment [Auto mated = 7343178710) message] The s ystem which generated this result transmitted reference range : 10*3/?L. The reference range was not used to interpret this result as normal/abnormal . GRAN MAT (NEUT) % 63.0 % (test code = 770-8) IMM GRAN % (test code 3.60 % = 6793746660) LYMPH % (test code = 17.5 % 736-9) MONO % (test code = 10.8 % 5905-5) EOS % (test code = 4.5 % 713-8) BASO % (test code = 0.6 % 706-2) GRAN MAT x10^3(ANC) 5.89 10*3/uL 1.99-6.95 (test code = 9571733688) IMM GRAN x10^3 (test 0.34 10*3/uL 0.00-0.06 H code = 3571797400) LYMPH x10^3 (test code 1.64 10*3/uL 1.09-3.23 = 731-0) MONO x10^3 (test code 1.01 10*3/uL 0.36-1.02 = 742-7) EOS x10^3 (test code = 0.42 10*3/uL 0.06-0.53 711-2) BASO x10^3 (test code 0.06 10*3/uL 0.01-0.09 = 704-7) REACT LYMPHS (test Rare code = 6557985822) Lab Interpretation Abnormal (test code = 90048-2) [facility] WITH [id number] 10:13:04 Test Item Value Reference Range Interpretation Comments WBC (test code = 9.36 See_Comment [Automated 0590-2) message] The sy stem which generated this result transmitted reference range : 4.20 - 10.70 10*3/?L. The reference range was not used to interpret this result as normal/abnormal . RBC (test code = 4.03 See_Comment L [Automated 869-8) message] The sy stem which generated this [...] RDW-SD (test code = 45.3 fL 38.5-51.6 92769-7) RDW-CV (test code = 14.5 % 12.1-15.4 788-0) PLT (test code = 174 See_Comment [Automated 777-3) message] The sy stem which generated this result transmitted reference range : 150 - 328 10*3/ ?L. The reference r mitra was not used to interpret this result as normal/abnormal . MPV (test code = 8.9 fL 9.8-13.0 L 88056-2) NRBC/100 WBC (test 0.3 See_Comment [Automat ed code = 6330877517) message] The system which generated this result transmitted reference range : 0.0 - 10.0 /100 WBCs. The refer ence range was not u sed to interpret th is result as normal/abnormal . NRBC x10^3 (test code 0.03 See_Comment [Auto mated = 6148149587) message] The s ystem which generated this result transmitted reference range : 10*3/?L. The reference range was not used to interpret this result as normal/abnormal . GRAN MAT (NEUT) % 63.0 % (test code = 770-8) IMM GRAN % (test code 3.60 % = 7502698517) LYMPH % (test code = 17.5 % 736-9) MONO % (test code = 10.8 % 5905-5) EOS % (test code = 4.5 % 713-8) BASO % (test code = 0.6 % 706-2) GRAN MAT x10^3(ANC) 5.89 10*3/uL 1.99-6.95 (test code = 4860018554) IMM GRAN x10^3 (test 0.34 10*3/uL 0.00-0.06 H code = 9796264418) LYMPH x10^3 (test code 1.64 10*3/uL 1.09-3.23 = 731-0) MONO x10^3 (test code 1.01 10*3/uL 0.36-1.02 = 742-7) EOS x10^3 (test code = 0.42 10*3/uL 0.06-0.53 711-2) BASO x10^3 (test code 0.06 10*3/uL 0.01-0.09 = 704-7) REACT LYMPHS (test Rare code = 0968949439) Lab Interpretation Abnormal (test code = 88929-4) [facility]03 Test Item Value Reference Range Interpretation Comments PHOSPHORUS (test code = 5018180537) 4.2 mg/dL 2.5-5.0 Lab Interpretation (test code = Normal 12025-6) [facility] 10:10:03 Test Item Value Reference Range Interpretation Comments MAGNESIUM (test code = 8037633248) 2.0 mg/dL 1.7-2.4 Lab Interpretation (test code = Normal 82306-4) [facility] (NA, K, CL, CO2, GLUCOSE, BUN, CREATININE, CA)2022-05-30 10:10:03 Test Item Value Reference Range Interpretation Comments NA (test code = 133 mmol/L 135-145 L 8087006581) K (test code = 3.9 mmol/L 3.5-5.0 2934240954) CL (test code = 103 mmol/L 98-108 0203850821) CO2 TOTAL (test code = 25 mmol/L 23-31 6344351874) AGAP (test code = 5 2-16 5883307863) BUN (test code = 22 mg/dL 7-23 0097023256) GLUCOSE (test code = 128 mg/dL 70-110 H 0968391621) CREATININE (test code = 0.87 mg/dL 0.60-1.25 5236313691) CALCIUM (test code = 8.2 mg/dL 8.6-10.6 L 5932702290) eGFR (test code = 89.8 mL/min/1.73m2 9743765362) DEWAYNE (test code = DEWAYNE) Association of [...] tests). Lab Interpretation Abnormal (test code = 17600-5) [facility] 10:10:03 Test Item Value Reference Range Interpretation Comments PHOSPHORUS (test code = 9911489171) 4.2 mg/dL 2.5-5.0 Lab Interpretation (test code = Normal 90634-7) [facility] 10:10:03 Test Item Value Reference Range Interpretation Comments MAGNESIUM (test code = 4020051899) 2.0 mg/dL 1.7-2.4 Lab Interpretation (test code = Normal 86420-1) [facility] (NA, K, CL, CO2, GLUCOSE, BUN, CREATININE, CA)2022-05-30 10:10:03 Test Item Value Reference Range Interpretation Comments NA (test code = 133 mmol/L 135-145 L 4939557311) K (test code = 3.9 mmol/L 3.5-5.0 6096059882) CL (test code = 103 mmol/L 98-108 5958893928) CO2 TOTAL (test code = 25 mmol/L 23-31 3005360008) AGAP (test code = 5 2-16 9193978234) BUN (test code = 22 mg/dL 7-23 9871518553) GLUCOSE (test code = 128 mg/dL 70-110 H 0893057613) CREATININE (test code = 0.87 mg/dL 0.60-1.25 7118766445) CALCIUM (test code = 8.2 mg/dL 8.6-10.6 L 5342683971) eGFR (test code = 89.8 mL/min/1.73m2 8578408960) DEWAYNE (test code = DEWAYNE) Association of [...] tests). Lab Interpretation Abnormal (test code = 75725-3) [facility] 10:10:03 Test Item Value Reference Range Interpretation Comments PHOSPHORUS (test code = 9867571036) 4.2 mg/dL 2.5-5.0 Lab Interpretation (test code = Normal 99726-1) [facility] 10:10:03 Test Item Value Reference Range Interpretation Comments MAGNESIUM (test code = 6514178693) 2.0 mg/dL 1.7-2.4 Lab Interpretation (test code = Normal 08066-8) [facility] METABOLIC PANEL (NA, K, CL, CO2, GLUCOSE, BUN, CREATININE, CA)2022-05-30 10:10:03 Test Item Value Reference Range Interpretation Comments NA (test code = 133 mmol/L 135-145 L 7391845240) K (test code = 3.9 mmol/L 3.5-5.0 9529974354) CL (test code = 103 mmol/L 98-108 1871667373) CO2 TOTAL (test code = 25 mmol/L 23-31 0207774522) AGAP (test code = 5 2-16 9191602996) BUN (test code = 22 mg/dL 7-23 3564537228) GLUCOSE (test code = 128 mg/dL 70-110 H 9487183475) CREATININE (test code = 0.87 mg/dL 0.60-1.25 6049767891) CALCIUM (test code = 8.2 mg/dL 8.6-10.6 L 1715787395) eGFR (test code = 89.8 mL/min/1.73m2 2242033822) DEWAYNE (test code = DEWAYNE) Association of [...] tests). Lab Interpretation Abnormal (test code = 07043-2) [facility] 10:10:03 Test Item Value Reference Range Interpretation Comments PHOSPHORUS (test code = 5312804107) 4.2 mg/dL 2.5-5.0 Lab Interpretation (test code = Normal 15284-2) [facility] 10:10:03 Test Item Value Reference Range Interpretation Comments MAGNESIUM (test code = 2329646717) 2.0 mg/dL 1.7-2.4 Lab Interpretation (test code = Normal 28953-6) [facility] (NA, K, CL, CO2, GLUCOSE, BUN, CREATININE, CA)2022-05-30 10:10:03 Test Item Value Reference Range Interpretation Comments NA (test code = 133 mmol/L 135-145 L 2643991915) K (test code = 3.9 mmol/L 3.5-5.0 2851549492) CL (test code = 103 mmol/L 98-108 2037004873) CO2 TOTAL (test code = 25 mmol/L 23-31 5942885768) AGAP (test code = 5 2-16 9607782750) BUN (test code = 22 mg/dL 7-23 7241783490) GLUCOSE (test code = 128 mg/dL 70-110 H 9175537905) CREATININE (test code = 0.87 mg/dL 0.60-1.25 5652368738) CALCIUM (test code = 8.2 mg/dL 8.6-10.6 L 0299959962) eGFR (test code = 89.8 mL/min/1.73m2 3862850607) DEWAYNE (test code = DEWAYNE) Association of [...] tests). Lab Interpretation Abnormal (test code = 90071-6) [facility]2023-04-17 09:52:38 Test Item Value Reference Range Interpretation Comments Fibrinogen (test code = 7024271112) 86 mg/dL 167-453 LL Lab Interpretation (test code = Abnormal 19913-8) [facility]2023-04-17 09:52:38 Test Item Value Reference Range Interpretation Comments Fibrinogen (test code = 2322202740) 86 mg/dL 167-453 LL Lab Interpretation (test code = Abnormal 20817-5) [facility] Test Item Value Reference Range Interpretation Comments Fibrinogen (test code = 5853509269) 86 mg/dL 167-453 LL Lab Interpretation (test code = Abnormal 03333-6) [facility]2023-04-17 09:52:38 Test Item Value Reference Range Interpretation Comments Fibrinogen (test code = 7180789614) 86 mg/dL 167-453 LL Lab Interpretation (test code = Abnormal 11816-1) [place]883-04-17 09:51:57 Test Item Value Reference Range Interpretation Comments APTT Patient (test code 44 See_Comment H [Au tomated message] = 3173-2) The system [employer] generated this result transmitted ref erence range: 26 - 36 Seconds. The reference range was not used to int erpret this result as normal/abnormal . Lab Interpretation (test Abnormal code = 22972-7) [place] 432883-04-17 09:51:57 Test Item Value Reference Range Interpretation Comments APTT Patient (test code 44 See_Comment H [Au tomated message] = 3173-2) The system [employer] generated this result transmitted ref erence range: 26 - 36 Seconds. The reference range was not used to int erpret this result as normal/abnormal . Lab Interpretation (test Abnormal code = 41198-1) [place] [address]92-04-17 09:51:57 Test Item Value Reference Range Interpretation Comments APTT Patient (test code 44 See_Comment H [Au tomated message] = 3173-2) The system [employer] generated this result transmitted ref erence range: 26 - 36 Seconds. The reference range was not used to int erpret this result as normal/abnormal . Lab Interpretation (test Abnormal code = 19733-8) [place] 69069023-04-17 09:51:57 Test Item Value Reference Range Interpretation Comments APTT Patient (test code 44 See_Comment H [Au tomated message] = 3173-2) The system [employer] generated this result transmitted ref erence range: 26 - 36 Seconds. The reference range was not used to int erpret this result as normal/abnormal . Lab Interpretation (test Abnormal code = 04256-8) [facility]2023-04-17 07:28:55 Test Item Value Reference Range Interpretation Comments Fibrinogen (test code = 1162076001) 73 mg/dL 167-453 LL Lab Interpretation (test code = Abnormal 48901-6) [facility]2023-04-17 07:28:55 Test Item Value Reference Range Interpretation Comments Fibrinogen (test code = 6630851632) 73 mg/dL 167-453 LL Lab Interpretation (test code = Abnormal 62626-1) [address]04-17 07:28:55 Test Item Value Reference Range Interpretation Comments Fibrinogen (test code = 7067842406) 73 mg/dL 167-453 LL Lab Interpretation (test code = Abnormal 93522-3) [facility] Test Item Value Reference Range Interpretation Comments Fibrinogen (test code = 0037925634) 73 mg/dL 167-453 LL Lab Interpretation (test code = Abnormal 14970-0) [facility] (for use with Heparin Drip)2022-05-30 06:39:14 Test Item Value Reference Range Interpretation Comments APTT Patient (test code 44 See_Comment H [Au tomated message] = 3173-2) The system [employer] generated this result transmitted ref erence range: 26 - 36 Seconds. The reference range was not used to int erpret this result as normal/abnormal . Lab Interpretation (test Abnormal code = 31255-7) [facility] (for use with Heparin Drip)2022-05-30 06:39:14 Test Item Value Reference Range Interpretation Comments APTT Patient (test code 44 See_Comment H [Au tomated message] = 3173-2) The system [employer] generated this result transmitted ref erence range: 26 - 36 Seconds. The reference range was not used to int erpret this result as normal/abnormal . Lab Interpretation (test Abnormal code = 03297-1) [facility] (for use with Heparin Drip)2022-05-30 06:39:14 Test Item Value Reference Range Interpretation Comments APTT Patient (test code 44 See_Comment H [Au tomated message] = 3173-2) The system [employer] generated this result transmitted ref erence range: 26 - 36 Seconds. The reference range was not used to int erpret this result as normal/abnormal . Lab Interpretation (test Abnormal code = 22191-3) [facility] (for use with Heparin Drip)2022-05-30 06:39:14 Test Item Value Reference Range Interpretation Comments APTT Patient (test code 44 See_Comment H [Au tomated message] = 3173-2) The system [employer] generated this result transmitted ref erence range: 26 - 36 Seconds. The reference range was not used to int erpret this result as normal/abnormal . Lab Interpretation (test Abnormal code = 93548-1) [facility]2023-04-17 05:26:04 Test Item Value Reference Range Interpretation Comments Fibrinogen (test code = 0228633439) 71 mg/dL 167-453 LL Lab Interpretation (test code = Abnormal 66335-8) [facility]2023-04-17 05:26:04 Test Item Value Reference Range Interpretation Comments Fibrinogen (test code = 6826304754) 71 mg/dL 167-453 LL Lab Interpretation (test code = Abnormal 86915-6) [facility]2023-04-17 05:26:04 Test Item Value Reference Range Interpretation Comments Fibrinogen (test code = 8727947614) 71 mg/dL 167-453 LL Lab Interpretation (test code = Abnormal 54016-0) [facility]2023-04-17 05:26:04 Test Item Value Reference Range Interpretation Comments Fibrinogen (test code = 0565767566) 71 mg/dL 167-453 LL Lab Interpretation (test code = Abnormal 04538-2) [facility]2023-04-16 23:49:05 Test Item Value Reference Range Interpretation Comments Fibrinogen (test code = 1218191310) 98 mg/dL 167-453 LL Lab Interpretation (test code = Abnormal 48413-6) [facility]2023-04-16 23:49:05 Test Item Value Reference Range Interpretation Comments Fibrinogen (test code = 4784199832) 98 mg/dL 167-453 LL Lab Interpretation (test code = Abnormal 40304-2) [facility]05 Test Item Value Reference Range Interpretation Comments Fibrinogen (test code = 5128915594) 98 mg/dL 167-453 LL Lab Interpretation (test code = Abnormal 45210-9) [facility]2023-04-16 23:49:05 Test Item Value Reference Range Interpretation Comments Fibrinogen (test code = 8409555826) 98 mg/dL 167-453 LL Lab Interpretation (test code = Abnormal 82903-0) [facility]2023-04-16 21:48:37 Test Item Value Reference Range Interpretation Comments Fibrinogen (test code = 3749580426) 113 mg/dL 167-453 L Lab Interpretation (test code = Abnormal 86533-6) [facility]37 Test Item Value Reference Range Interpretation Comments Fibrinogen (test code = 2598990274) 113 mg/dL 167-453 L Lab Interpretation (test code = Abnormal 22718-4) [facility]2023-04-16 21:48:37 Test Item Value Reference Range Interpretation Comments Fibrinogen (test code = 6069447473) 113 mg/dL 167-453 L Lab Interpretation (test code = Abnormal 13372-7) [facility]2023-04-16 21:48:37 Test Item Value Reference Range Interpretation Comments Fibrinogen (test code = 7128074987) 113 mg/dL 167-453 L Lab Interpretation (test code = Abnormal 49567-0) [facility] METABOLIC PANEL (NA, K, CL, CO2, GLUCOSE, BUN, CREATININE, CA)2022-05-29 15:33:06 Test Item Value Reference Range Interpretation Comments NA (test code = 139 mmol/L 135-145 5043771877) K (test code = 4.2 mmol/L 3.5-5.0 6674903127) CL (test code = 104 mmol/L 98-108 7252148124) CO2 TOTAL (test code = 29 mmol/L 23-31 9917161897) AGAP (test code = 6 2-16 5301697180) BUN (test code = 25 mg/dL 7-23 H 8413984997) GLUCOSE (test code = 85 mg/dL 70-110 8094154096) CREATININE (test code = 1.02 mg/dL 0.60-1.25 3063759673) CALCIUM (test code = 8.7 mg/dL 8.6-10.6 1634553266) eGFR (test code = 74.8 mL/min/1.73m2 7926689470) DEWAYNE (test code = DEWAYNE) Association of [...] tests). Lab Interpretation Abnormal (test code = 41017-7) [facility] METABOLIC PANEL (NA, K, CL, CO2, GLUCOSE, BUN, CREATININE, CA)2022-05-29 15:33:06 Test Item Value Reference Range Interpretation Comments NA (test code = 139 mmol/L 135-145 8964364520) K (test code = 4.2 mmol/L 3.5-5.0 9491367107) CL (test code = 104 mmol/L 98-108 2155487379) CO2 TOTAL (test code = 29 mmol/L 23-31 0151413917) AGAP (test code = 6 2-16 6230360158) BUN (test code = 25 mg/dL 7-23 H 0378983257) GLUCOSE (test code = 85 mg/dL 70-110 7722720017) CREATININE (test code = 1.02 mg/dL 0.60-1.25 5698674408) CALCIUM (test code = 8.7 mg/dL 8.6-10.6 6255696424) eGFR (test code = 74.8 mL/min/1.73m2 2523725272) DEWAYNE (test code = DEWAYNE) Association of [...] tests). Lab Interpretation Abnormal (test code = 44317-2) [facility] METABOLIC PANEL (NA, K, CL, CO2, GLUCOSE, BUN, CREATININE, CA)2022-05-29 15:33:06 Test Item Value Reference Range Interpretation Comments NA (test code = 139 mmol/L 135-145 6545319561) K (test code = 4.2 mmol/L 3.5-5.0 6696026743) CL (test code = 104 mmol/L 98-108 4838176638) CO2 TOTAL (test code = 29 mmol/L 23-31 7821324574) AGAP (test code = 6 2-16 2251963671) BUN (test code = 25 mg/dL 7-23 H 7394547658) GLUCOSE (test code = 85 mg/dL 70-110 1789360560) CREATININE (test code = 1.02 mg/dL 0.60-1.25 3183769645) CALCIUM (test code = 8.7 mg/dL 8.6-10.6 9465155319) eGFR (test code = 74.8 mL/min/1.73m2 4144784278) DEWAYNE (test code = DEWAYNE) Association of [...] tests). Lab Interpretation Abnormal (test code = 72488-3) [facility] METABOLIC PANEL (NA, K, CL, CO2, GLUCOSE, BUN, CREATININE, CA)2022-05-29 15:33:06 Test Item Value Reference Range Interpretation Comments NA (test code = 139 mmol/L 135-145 4659092606) K (test code = 4.2 mmol/L 3.5-5.0 9601229100) CL (test code = 104 mmol/L 98-108 1467562855) CO2 TOTAL (test code = 29 mmol/L 23-31 8863936695) AGAP (test code = 6 2-16 7424965486) BUN (test code = 25 mg/dL 7-23 H 3232149247) GLUCOSE (test code = 85 mg/dL 70-110 6505600313) CREATININE (test code = 1.02 mg/dL 0.60-1.25 1040609056) CALCIUM (test code = 8.7 mg/dL 8.6-10.6 7302552966) eGFR (test code = 74.8 mL/min/1.73m2 4089948900) DEWAYNE (test code = DEWAYNE) Association of [...] tests). Lab Interpretation Abnormal (test code = 41233-8) [facility] 15:15:42 Test Item Value Reference Range Interpretation Comments Fibrinogen (test code = 5466169923) 368 mg/dL 167-453 Lab Interpretation (test code = Normal 23180-4) [facility] 15:15:42 Test Item Value Reference Range Interpretation Comments Fibrinogen (test code = 9902748369) 368 mg/dL 167-453 Lab Interpretation (test code = Normal 55252-9) [facility] Test Item Value Reference Range Interpretation Comments Fibrinogen (test code = 7744474554) 368 mg/dL 167-453 Lab Interpretation (test code = Normal 88352-4) [facility]:15:42 Test Item Value Reference Range Interpretation Comments Fibrinogen (test code = 5136160671) 368 mg/dL 167-453 Lab Interpretation (test code = Normal 87128-2) [facility] WITH [id number] 15:09:40 Test Item Value Reference Range Interpretation Comments WBC (test code = 8.27 See_Comment [Automated 5190-2) message] The sy stem which generated this result transmitted reference range : 4.20 - 10.70 10*3/?L. The reference range was not used to interpret this result as normal/abnormal . RBC (test code = 4.18 See_Comment L [Automated 079-8) message] The sy stem which generated this [...] RDW-SD (test code = 47.6 fL 38.5-51.6 42441-1) RDW-CV (test code = 14.7 % 12.1-15.4 788-0) PLT (test code = 252 See_Comment [Automated 777-3) message] The sy stem which generated this result transmitted reference range : 150 - 328 10*3/ ?L. The reference r mitra was not used to interpret this result as normal/abnormal . MPV (test code = 9.1 fL 9.8-13.0 L 78710-0) NRBC/100 WBC (test 0.0 See_Comment [Automat ed code = 9315598308) message] The system which generated this result transmitted reference range : 0.0 - 10.0 /100 WBCs. The refer ence range was not u sed to interpret th is result as normal/abnormal . NRBC x10^3 (test code See_Comment [Auto mated = 7225364067) message] The s ystem which generated this result transmitted reference range : 10*3/?L. The reference range was not used to interpret this result as normal/abnormal . GRAN MAT (NEUT) % 53.7 % (test code = 770-8) IMM GRAN % (test code 1.90 % = 0293533638) LYMPH % (test code = 29.6 % 736-9) MONO % (test code = 8.1 % 5905-5) EOS % (test code = 5.7 % 713-8) BASO % (test code = 1.0 % 706-2) GRAN MAT x10^3(ANC) 4.44 10*3/uL 1.99-6.95 (test code = 6686198425) IMM GRAN x10^3 (test 0.16 10*3/uL 0.00-0.06 H code = 9697701683) LYMPH x10^3 (test code 2.45 10*3/uL 1.09-3.23 = 731-0) MONO x10^3 (test code 0.67 10*3/uL 0.36-1.02 = 742-7) EOS x10^3 (test code = 0.47 10*3/uL 0.06-0.53 711-2) BASO x10^3 (test code 0.08 10*3/uL 0.01-0.09 = 704-7) Lab Interpretation Abnormal (test code = 82877-3) [facility] WITH [id number] 15:09:40 Test Item Value Reference Range Interpretation [...] RDW-SD (test code = 47.6 fL 38.5-51.6 61891-2) RDW-CV (test code = 14.7 % 12.1-15.4 788-0) PLT (test code = 252 See_Comment [Automated 777-3) message] The sy stem which generated this result transmitted reference range : 150 - 328 10*3/ ?L. The reference r mitra was not used to interpret this result as normal/abnormal . MPV (test code = 9.1 fL 9.8-13.0 L 52131-1) NRBC/100 WBC (test 0.0 See_Comment [Automat ed code = 8843824151) message] The system which generated this result transmitted reference range : 0.0 - 10.0 /100 WBCs. The refer ence range was not u sed to interpret th is result as normal/abnormal . NRBC x10^3 (test code See_Comment [Auto mated = 5161153602) message] The s ystem which generated this result transmitted reference range : 10*3/?L. The reference range was not used to interpret this result as normal/abnormal . GRAN MAT (NEUT) % 53.7 % (test code = 770-8) IMM GRAN % (test code 1.90 % = 8758716075) LYMPH % (test code = 29.6 % 736-9) MONO % (test code = 8.1 % 5905-5) EOS % (test code = 5.7 % 713-8) BASO % (test code = 1.0 % 706-2) GRAN MAT x10^3(ANC) 4.44 10*3/uL 1.99-6.95 (test code = 4557020775) IMM GRAN x10^3 (test 0.16 10*3/uL 0.00-0.06 H code = 7245224893) LYMPH x10^3 (test code 2.45 10*3/uL 1.09-3.23 = 731-0) MONO x10^3 (test code 0.67 10*3/uL 0.36-1.02 = 742-7) EOS x10^3 (test code = 0.47 10*3/uL 0.06-0.53 711-2) BASO x10^3 (test code 0.08 10*3/uL 0.01-0.09 = 704-7) Lab Interpretation Abnormal (test code = 96968-7) [facility] WITH [id number] 15:09:40 Test Item Value Reference Range Interpretation Comments WBC (test code = 8.27 See_Comment [Automated 6690-2) message] The sy stem which generated this result transmitted reference range : 4.20 - 10.70 10*3/?L. The reference range was not used to interpret this result as normal/abnormal . RBC (test code = 4.18 See_Comment L [Automated 559-8) message] The sy [...] RDW-SD (test code = 47.6 fL 38.5-51.6 03850-1) RDW-CV (test code = 14.7 % 12.1-15.4 788-0) PLT (test code = 252 See_Comment [Automated 777-3) message] The sy stem which generated this result transmitted reference range : 150 - 328 10*3/ ?L. The reference r mitra was not used to interpret this result as normal/abnormal . MPV (test code = 9.1 fL 9.8-13.0 L 44941-9) NRBC/100 WBC (test 0.0 See_Comment [Automat ed code = 3267267209) message] The system which generated this result transmitted reference range : 0.0 - 10.0 /100 WBCs. The refer ence range was not u sed to interpret th is result as normal/abnormal . NRBC x10^3 (test code See_Comment [Auto mated = 7734762980) message] The s ystem which generated this result transmitted reference range : 10*3/?L. The reference range was not used to interpret this result as normal/abnormal . GRAN MAT (NEUT) % 53.7 % (test code = 770-8) IMM GRAN % (test code 1.90 % = 7954024262) LYMPH % (test code = 29.6 % 736-9) MONO % (test code = 8.1 % 5905-5) EOS % (test code = 5.7 % 713-8) BASO % (test code = 1.0 % 706-2) GRAN MAT x10^3(ANC) 4.44 10*3/uL 1.99-6.95 (test code = 0618960714) IMM GRAN x10^3 (test 0.16 10*3/uL 0.00-0.06 H code = 2614618621) LYMPH x10^3 (test code 2.45 10*3/uL 1.09-3.23 = 731-0) MONO x10^3 (test code 0.67 10*3/uL 0.36-1.02 = 742-7) EOS x10^3 (test code = 0.47 10*3/uL 0.06-0.53 711-2) BASO x10^3 (test code 0.08 10*3/uL 0.01-0.09 = 704-7) Lab Interpretation Abnormal (test code = 98415-8) [facility] WITH [id number] 15:09:40 Test Item Value Reference Range Interpretation [...] RDW-SD (test code = 47.6 fL 38.5-51.6 21182-4) RDW-CV (test code = 14.7 % 12.1-15.4 788-0) PLT (test code = 252 See_Comment [Automated 777-3) message] The sy stem which generated this result transmitted reference range : 150 - 328 10*3/ ?L. The reference r mitra was not used to interpret this result as normal/abnormal . MPV (test code = 9.1 fL 9.8-13.0 L 75776-3) NRBC/100 WBC (test 0.0 See_Comment [Automat ed code = 2998751444) message] The system which generated this result transmitted reference range : 0.0 - 10.0 /100 WBCs. The refer ence range was not u sed to interpret th is result as normal/abnormal . NRBC x10^3 (test code See_Comment [Auto mated = 8551667117) message] The s [employer] which generated this result transmitted reference range : 10*3/?L. The reference range was not used to interpret this result as normal/abnormal . GRAN MAT (NEUT) % 53.7 % (test code = 770-8) IMM GRAN % (test code 1.90 % = 9649262387) LYMPH % (test code = 29.6 % 736-9) MONO % (test code = 8.1 % 5905-5) EOS % (test code = 5.7 % 713-8) BASO % (test code = 1.0 % 706-2) GRAN MAT x10^3(ANC) 4.44 10*3/uL 1.99-6.95 (test code = 2930256363) IMM GRAN x10^3 (test 0.16 10*3/uL 0.00-0.06 H code = 5863219592) LYMPH x10^3 (test code 2.45 10*3/uL 1.09-3.23 = 731-0) MONO x10^3 (test code 0.67 10*3/uL 0.36-1.02 = 742-7) EOS x10^3 (test code = 0.47 10*3/uL 0.06-0.53 711-2) BASO x10^3 (test code 0.08 10*3/uL 0.01-0.09 = 704-7) Lab Interpretation Abnormal (test code = 09882-0) [facility] (for use with Heparin Infusion)2022-05-29 11:36:15 Test Item Value Reference Range Interpretation Comments APTT Patient (test code 52 See_Comment H [Au tomated message] = 2773-2) The system [employer] generated this result transmitted ref erence range: 26 - 36 Seconds. The reference range was not used to int erpret this result as normal/abnormal . Lab Interpretation (test Abnormal code = 75749-7) [facility] (for use with Heparin Infusion)2022-05-29 11:36:15 Test Item Value Reference Range Interpretation Comments APTT Patient (test code 52 See_Comment H [Au tomated message] = 3173-2) The system [employer] generated this result transmitted ref erence range: 26 - 36 Seconds. The reference range was not used to int erpret this result as normal/abnormal . Lab Interpretation (test Abnormal code = 59256-1) [facility] (for use with Heparin Infusion)2022-05-29 11:36:15 Test Item Value Reference Range Interpretation Comments APTT Patient (test code 52 See_Comment H [Au tomated message] = 3173-2) The system [employer] generated this result transmitted ref erence range: 26 - 36 Seconds. The reference range was not used to int erpret this result as normal/abnormal . Lab Interpretation (test Abnormal code = 47491-5) [facility] (for use with Heparin Infusion)2022-05-29 11:36:15 Test Item Value Reference Range Interpretation Comments APTT Patient (test code 52 See_Comment H [Au tomated message] = 3173-2) The system [employer] generated this result transmitted ref erence range: 26 - 36 Seconds. The reference range was not used to int erpret this result as normal/abnormal . Lab Interpretation (test Abnormal code = 52339-9) [facility] METABOLIC PANEL (NA, K, CL, CO2, GLUCOSE, BUN, CREATININE, CA)2022-05-29 11:35:55 Test Item Value Reference Range Interpretation Comments NA (test code = 136 mmol/L 135-145 6879891804) K (test code = 4.9 mmol/L 3.5-5.0 Slight 4330143696) hemolysis CL (test code = 106 mmol/L 98-108 9472071813) CO2 TOTAL (test code 28 mmol/L 23-31 = 4850621182) AGAP (test code = 2 2-16 0655528886) BUN (test code = 26 mg/dL 7-23 H Slight 1988010681) hemolysis GLUCOSE (test code = 88 mg/dL 70-110 0695303874) CREATININE (test code 0.86 mg/dL 0.60-1.25 = 7330835605) CALCIUM (test code = 8.4 mg/dL 8.6-10.6 L 3937157198) eGFR (test code = 91.0 mL/min/1.73m2 5791688037) DEWAYNE (test code = DEWAYNE) Association of [...] tests). Lab Interpretation Abnormal (test code = 29607-6) [facility]55 Test Item Value Reference Range Interpretation Comments MAGNESIUM (test code = 5644736082) 2.4 mg/dL 1.7-2.4 Lab Interpretation (test code = Normal 08045-2) [facility] (NA, K, CL, CO2, GLUCOSE, BUN, CREATININE, CA)2022-05-29 11:35:55 Test Item Value Reference Range Interpretation Comments NA (test code = 136 mmol/L 135-145 6943116595) K (test code = 4.9 mmol/L 3.5-5.0 Slight 5879078105) hemolysis CL (test code = 106 mmol/L 98-108 0544760771) CO2 TOTAL (test code 28 mmol/L 23-31 = 2677967552) AGAP (test code = 2 2-16 8849995889) BUN (test code = 26 mg/dL 7-23 H Slight 3185707194) hemolysis GLUCOSE (test code = 88 mg/dL 70-110 7326510514) CREATININE (test code 0.86 mg/dL 0.60-1.25 = 7579118346) CALCIUM (test code = 8.4 mg/dL 8.6-10.6 L 8920563002) eGFR (test code = 91.0 mL/min/1.73m2 4668672818) DEWAYNE (test code = DEWAYNE) Association of [...] tests). Lab Interpretation Abnormal (test code = 10962-3) [facility] Test Item Value Reference Range Interpretation Comments MAGNESIUM (test code = 9696077286) 2.4 mg/dL 1.7-2.4 Lab Interpretation (test code = Normal 35430-2) [facility] METABOLIC PANEL (NA, K, CL, CO2, GLUCOSE, BUN, CREATININE, CA)2022-05-29 11:35:55 Test Item Value Reference Range Interpretation Comments NA (test code = 136 mmol/L 135-145 8452787385) K (test code = 4.9 mmol/L 3.5-5.0 Slight 3406811683) hemolysis CL (test code = 106 mmol/L 98-108 5894369009) CO2 TOTAL (test code 28 mmol/L 23-31 = 5544996103) AGAP (test code = 2 2-16 6537725293) BUN (test code = 26 mg/dL 7-23 H Slight 3291991484) hemolysis GLUCOSE (test code = 88 mg/dL 70-110 2297776930) CREATININE (test code 0.86 mg/dL 0.60-1.25 = 7671975650) CALCIUM (test code = 8.4 mg/dL 8.6-10.6 L 7913521633) eGFR (test code = 91.0 mL/min/1.73m2 3689994247) DEWAYNE (test code = DEWAYNE) Association of [...] tests). Lab Interpretation Abnormal (test code = 71938-7) [facility] 11:35:55 Test Item Value Reference Range Interpretation Comments MAGNESIUM (test code = 7807822636) 2.4 mg/dL 1.7-2.4 Lab Interpretation (test code = Normal 30781-2) [facility] (NA, K, CL, CO2, GLUCOSE, BUN, CREATININE, CA)2022-05-29 11:35:55 Test Item Value Reference Range Interpretation Comments NA (test code = 136 mmol/L 135-145 1324230715) K (test code = 4.9 mmol/L 3.5-5.0 Slight 0533944829) hemolysis CL (test code = 106 mmol/L 98-108 8839221466) CO2 TOTAL (test code 28 mmol/L 23-31 = 8752994862) AGAP (test code = 2 2-16 6241423809) BUN (test code = 26 mg/dL 7-23 H Slight 8482524128) hemolysis GLUCOSE (test code = 88 mg/dL 70-110 2486401408) CREATININE (test code 0.86 mg/dL 0.60-1.25 = 2591559374) CALCIUM (test code = 8.4 mg/dL 8.6-10.6 L 5516567778) eGFR (test code = 91.0 mL/min/1.73m2 0718387082) DEWAYNE (test code = DEWAYNE) Association of [...] tests). Lab Interpretation Abnormal (test code = 53609-7) [facility] 11:35:55 Test Item Value Reference Range Interpretation Comments MAGNESIUM (test code = 3864003360) 2.4 mg/dL 1.7-2.4 Lab Interpretation (test code = Normal 88611-5) [facility] [id number] 11:28:31 Test Item Value Reference Range Interpretation Comments WBC (test code = 6690-2) 7.81 See_Comment [A utomated message] The system [employer] generated this result transmit elizabeth reference range : 4.20 - 10.70 10*3/?L. The reference range was not used to interpret this result as normal/abnormal . RBC (test code = 789-8) 4.04 See_Comment L [Au tomated message] The system [employer] generated this result transmit elizabeth reference range [...] 252 See_Comment [Au tomated message] The system [employer] generated this result transmit elizabeth reference range : 150 - 328 10*3/?L. The reference range was not used to interpret this result as normal/abnormal . MPV (test code = 9.6 fL 9.8-13.0 L 85704-8) RDW-CV (test code = 14.6 % 12.1-15.4 788-0) RDW-SD (test code = 46.5 fL 38.5-51.6 18221-1) NRBC x10^3 (test code = See_Comment [Au tomated message] 6266030761) The system [employer] generated this result transmit elizabeth reference range : 10*3/?L. The reference range was not used to interpret this result as normal/abnormal . NRBC/100 WBC (test code 0.0 See_Comment [Au tomated message] = 9836974078) The system [facility] generated this result transmit elizabeth reference range : 0.0 - 10.0 /100 WBC s. The reference r mitra was not used to interpret this result as normal/abnormal . IPF % (test code = 3823887606) Lab Interpretation (test Abnormal code = 82421-5) [facility] [id number] 11:28:31 Test Item Value Reference Range Interpretation Comments WBC (test code = 6690-2) 7.81 See_Comment [A utomated message] The system [employer] generated this result transmit elizabeth reference range : 4.20 - 10.70 10*3/?L. The reference range was not used to interpret this result as normal/abnormal . RBC (test code = 789-8) 4.04 See_Comment L [Au tomated message] The system [employer] generated this result transmit elizabeth reference range [...] 252 See_Comment [Au tomated message] The system [employer] generated this result transmit elizabeth reference range : 150 - 328 10*3/?L. The reference range was not used to interpret this result as normal/abnormal . MPV (test code = 9.6 fL 9.8-13.0 L 64142-5) RDW-CV (test code = 14.6 % 12.1-15.4 788-0) RDW-SD (test code = 46.5 fL 38.5-51.6 91010-9) NRBC x10^3 (test code = See_Comment [Au tomated message] 6801812287) The system [employer] generated this result transmit elizabeth reference range : 10*3/?L. The reference range was not used to interpret this result as normal/abnormal . NRBC/100 WBC (test code 0.0 See_Comment [Au tomated message] = 6663509541) The system [employer] generated this result transmit elizabeth reference range : 0.0 - 10.0 /100 WBC s. The reference r mitra was not used to interpret this result as normal/abnormal . IPF % (test code = 2341209110) Lab Interpretation (test Abnormal code = 55652-2) [facility] [id number] 11:28:31 Test Item Value Reference Range Interpretation Comments WBC (test code = 6690-2) 7.81 See_Comment [A utomated message] The system [employer] generated this result transmit elizabeth reference range : 4.20 - 10.70 10*3/?L. The reference range was not used to interpret this result as normal/abnormal . RBC (test code = 789-8) 4.04 See_Comment L [Au tomated message] The system [employer] generated this result transmit elizabeth reference range [...] 252 See_Comment [Au tomated message] The system [facility] generated this result transmit elizabeth reference range : 150 - 328 10*3/?L. The reference range was not used to interpret this result as normal/abnormal . MPV (test code = 9.6 fL 9.8-13.0 L 97456-0) RDW-CV (test code = 14.6 % 12.1-15.4 788-0) RDW-SD (test code = 46.5 fL 38.5-51.6 60816-5) NRBC x10^3 (test code = See_Comment [Au tomated message] 2999928112) The system [employer] generated this result transmit elizabeth reference range : 10*3/?L. The reference range was not used to interpret this result as normal/abnormal . NRBC/100 WBC (test code 0.0 See_Comment [Au tomated message] = 0558933065) The system [facility] generated this result transmit elizabeth reference range : 0.0 - 10.0 /100 WBC s. The reference r mitra was not used to interpret this result as normal/abnormal . IPF % (test code = 4047436637) Lab Interpretation (test Abnormal code = 05042-0) [facility] [id number] 11:28:31 Test Item Value Reference Range Interpretation Comments WBC (test code = 6690-2) 7.81 See_Comment [A utomated message] The system [facility] generated this result transmit elizabeth reference range : 4.20 - 10.70 10*3/?L. The reference range was not used to interpret this result as normal/abnormal . RBC (test code = 789-8) 4.04 See_Comment L [Au tomated message] The system [employer] generated this result transmit elizabeth reference range [...] 252 See_Comment [Au tomated message] The system [facility] generated this result transmit elizabeth reference range : 150 - 328 10*3/?L. The reference range was not used to interpret this result as normal/abnormal . MPV (test code = 9.6 fL 9.8-13.0 L 92036-2) RDW-CV (test code = 14.6 % 12.1-15.4 788-0) RDW-SD (test code = 46.5 fL 38.5-51.6 56114-0) NRBC x10^3 (test code = See_Comment [Au tomated message] 6196574606) The system [employer] generated this result transmit elizabeth reference range : 10*3/?L. The reference range was not used to interpret this result as normal/abnormal . NRBC/100 WBC (test code 0.0 See_Comment [Au tomated message] = 1710168782) The system [facility] generated this result transmit elizabeth reference range : 0.0 - 10.0 /100 WBC s. The reference r mitra was not used to interpret this result as normal/abnormal . IPF % (test code = 5919411522) Lab Interpretation (test Abnormal code = 94356-5) [facility] [id number] 18:45:15 Test Item Value Reference Range Interpretation Comments Factor 2 D81025X Heterozygous Normal Mutation (test code = 9066271910) DEWAYNE (test code = Phenotype DEWAYNE) Characteristics: [...] further increased for homozygotes. Mutation Tested: F2 c.09447W>A (L68578C). Clinical Sensitivity for Venous Thrombosis: Approximately 10%. Methodology: Polymerase chain reaction and fluorescence monitoring Limitations: The performance of this assay has not been evaluated with samples from pediatric patients. Counseling and informed consent are recommended for genetic testing. References: OMIM: 481605 [email or web address].nlm.nih.gov/c ondition/prothrombin-thro mbophilia [facility] [id number] 18:45:15 Test Item Value Reference Range Interpretation Comments FACTOR 5 LEIDEN Heterozygous Normal (test code = 6852161277) DEWAYNE (test code = Phenotype Characteristics: DEWAYNE) [...] the Factor 5 Leiden mutation is c.1601G>A (p.Ntr554Gvu). Methodology: Polymerase chain reaction and fluorescence monitoring. Limitations: Rare Factor V mutations (O3994F, R1015B, and G3848U) and any additional SNPs in the probe binding region may interfere with the target detection and yield an INVALID result. The performance of this assay has not been evaluated with samples from pediatric patients. Counseling and informed consent are recommended for genetic testing. References: OMIM: 887603 [email or web address]://ghr.nlm.nih.gov/co ndition/zmxhnb-u-wgujjz- rombophilia [facility] [id number] 18:45:15 Test Item Value Reference Range Interpretation Comments Factor 2 E37365I Heterozygous Normal Mutation (test code = 6683331491) DEWAYNE (test code = Phenotype DEWAYNE) Characteristics: [...] further increased for homozygotes. Mutation Tested: F2 c.57273R>A (D16126P). Clinical Sensitivity for Venous Thrombosis: Approximately 10%. Methodology: Polymerase chain reaction and fluorescence monitoring Limitations: The performance of this assay has not been evaluated with samples from pediatric patients. Counseling and informed consent are recommended for genetic testing. References: OMIM: 602545 [email or web address]://ghr.nlm.nih.gov/c ondition/prothrombin-thro mbophilia [facility] [id number] 18:45:15 Test Item Value Reference Range Interpretation Comments FACTOR 5 LEIDEN Heterozygous Normal (test code = 2087361357) DEWAYNE (test code = Phenotype Characteristics: DEWAYNE) [...] the Factor 5 Leiden mutation is c.1601G>A (p.Fsu489Ptc). Methodology: Polymerase chain reaction and fluorescence monitoring. Limitations: Rare Factor V mutations (A7889W, R7103D, and O3370G) and any additional SNPs in the probe binding region may interfere with the target detection and yield an INVALID result. The performance of this assay has not been evaluated with samples from pediatric patients. Counseling and informed consent are recommended for genetic testing. References: OMIM: 207157 https://ghr.nlm.nih.gov/co ndition/qmttza-m-isjnug-th rombophilia [facility] E15868W [id number] 18:45:15 Test Item Value Reference Range Interpretation Comments Factor 2 G84814B Heterozygous Normal Mutation (test code = 0264501145) DEWAYNE (test code = Phenotype DEWAYNE) Characteristics: [...] further increased for homozygotes. Mutation Tested: F2 c.74849E>A (Z17459R). Clinical Sensitivity for Venous Thrombosis: Approximately 10%. Methodology: Polymerase chain reaction and fluorescence monitoring Limitations: The performance of this assay has not been evaluated with samples from pediatric patients. Counseling and informed consent are recommended for genetic testing. References: OMIM: 764633 [email or web address]://r.nlm.nih.gov/c ondition/prothrombin-thro mbophilia [facility] [id number] 18:45:15 Test Item Value Reference Range Interpretation Comments FACTOR 5 LEIDEN Heterozygous Normal (test code = 4353843811) DEWAYNE (test code = Phenotype Characteristics: DEWAYNE) [...] the Factor 5 Leiden mutation is c.1601G>A (p.Laq213Mei). Methodology: Polymerase chain reaction and fluorescence monitoring. Limitations: Rare Factor V mutations (I6478L, H9711J, and F1880H) and any additional SNPs in the probe binding region may interfere with the target detection and yield an INVALID result. The performance of this assay has not been evaluated with samples from pediatric patients. Counseling and informed consent are recommended for genetic testing. References: OMIM: 740179 https://ghr.nlm.nih.gov/co ndition/rszroi-p-ybwhrp-th rombophilia [facility] [id number] 18:45:15 Test Item Value Reference Range Interpretation Comments Factor 2 C44513B Heterozygous Normal Mutation (test code = 8117065401) DEWAYNE (test code = Phenotype DEWAYNE) Characteristics: [...] further increased for homozygotes. Mutation Tested: F2 c.79241P>A (Q36954Y). Clinical Sensitivity for Venous Thrombosis: Approximately 10%. Methodology: Polymerase chain reaction and fluorescence monitoring Limitations: The performance of this assay has not been evaluated with samples from pediatric patients. Counseling and informed consent are recommended for genetic testing. References: OMIM: 405011 https://ghr.nlm.nih.gov/c ondition/prothrombin-thro mbophilia [facility] [id number] 18:45:15 Test Item Value Reference Range Interpretation Comments FACTOR 5 LEIDEN Heterozygous Normal (test code = 6345556977) DEWAYNE (test code = Phenotype Characteristics: DEWAYNE) [...] the Factor 5 Leiden mutation is c.1601G>A (p.Ccy446Gii). Methodology: Polymerase chain reaction and fluorescence monitoring. Limitations: Rare Factor V mutations (S3758U, N8603G, and H5802X) and any additional SNPs in the probe binding region may interfere with the target detection and yield an INVALID result. The performance of this assay has not been evaluated with samples from pediatric patients. Counseling and informed consent are recommended for genetic testing. References: OMIM: 044071 https://ghr.nlm.nih.gov/co ndition/fxdwir-u-owwrug-lynnette amos [facility] METABOLIC PANEL (NA, K, CL, CO2, GLUCOSE, BUN, CREATININE, CA)2022-05-28 09:52:42 Test Item Value Reference Range Interpretation Comments NA (test code = 137 mmol/L 135-145 0553006969) K (test code = 3.8 mmol/L 3.5-5.0 1945930253) CL (test code = 103 mmol/L 98-108 0232699609) CO2 TOTAL (test code = 27 mmol/L 23-31 3510285883) AGAP (test code = 7 2-16 9561627916) BUN (test code = 27 mg/dL 7-23 H 3198171842) GLUCOSE (test code = 105 mg/dL 70-110 2962313720) CREATININE (test code = 0.84 mg/dL 0.60-1.25 2228571541) CALCIUM (test code = 8.5 mg/dL 8.6-10.6 L 9719468255) eGFR (test code = 93.5 mL/min/1.73m2 4629094997) DEWAYNE (test code = DEWAYNE) Association of [...] tests). Lab Interpretation Abnormal (test code = 73238-9) [facility] METABOLIC PANEL (NA, K, CL, CO2, GLUCOSE, BUN, CREATININE, CA)2022-05-28 09:52:42 Test Item Value Reference Range Interpretation Comments NA (test code = 137 mmol/L 135-145 1680379429) K (test code = 3.8 mmol/L 3.5-5.0 2321753052) CL (test code = 103 mmol/L 98-108 7011553346) CO2 TOTAL (test code = 27 mmol/L 23-31 7181153945) AGAP (test code = 7 2-16 8135749097) BUN (test code = 27 mg/dL 7-23 H 7392858689) GLUCOSE (test code = 105 mg/dL 70-110 9992075888) CREATININE (test code = 0.84 mg/dL 0.60-1.25 6511549697) CALCIUM (test code = 8.5 mg/dL 8.6-10.6 L 1528902582) eGFR (test code = 93.5 mL/min/1.73m2 6854184825) DEWAYNE (test code = DEWAYNE) Association of [...] tests). Lab Interpretation Abnormal (test code = 87179-9) [facility] METABOLIC PANEL (NA, K, CL, CO2, GLUCOSE, BUN, CREATININE, CA)2022-05-28 09:52:42 Test Item Value Reference Range Interpretation Comments NA (test code = 137 mmol/L 135-145 0441667087) K (test code = 3.8 mmol/L 3.5-5.0 1449597092) CL (test code = 103 mmol/L 98-108 0572345868) CO2 TOTAL (test code = 27 mmol/L 23-31 2459823996) AGAP (test code = 7 2-16 1131008857) BUN (test code = 27 mg/dL 7-23 H 1044598648) GLUCOSE (test code = 105 mg/dL 70-110 0551399284) CREATININE (test code = 0.84 mg/dL 0.60-1.25 4934085779) CALCIUM (test code = 8.5 mg/dL 8.6-10.6 L 0592862925) eGFR (test code = 93.5 mL/min/1.73m2 5184761136) DEWAYNE (test code = DEWAYNE) Association of [...] tests). Lab Interpretation Abnormal (test code = 74940-1) [facility] METABOLIC PANEL (NA, K, CL, CO2, GLUCOSE, BUN, CREATININE, CA)2022-05-28 09:52:42 Test Item Value Reference Range Interpretation Comments NA (test code = 137 mmol/L 135-145 6049234710) K (test code = 3.8 mmol/L 3.5-5.0 1205722513) CL (test code = 103 mmol/L 98-108 6883150175) CO2 TOTAL (test code = 27 mmol/L 23-31 6962369571) AGAP (test code = 7 2-16 7637687042) BUN (test code = 27 mg/dL 7-23 H 0223319535) GLUCOSE (test code = 105 mg/dL 70-110 8672439283) CREATININE (test code = 0.84 mg/dL 0.60-1.25 6675156848) CALCIUM (test code = 8.5 mg/dL 8.6-10.6 L 1864590644) eGFR (test code = 93.5 mL/min/1.73m2 7935811247) DEWAYNE (test code = DEWAYNE) Association of [...] tests). Lab Interpretation Abnormal (test code = 77473-6) [facility] [id number] 09:29:20 Test Item Value Reference Range Interpretation Comments WBC (test code = 8.34 See_Comment [Automated 7816-2) message] The sy stem which generated this result transmitted reference range : 4.20 - 10.70 10*3/?L. The reference range was not used to interpret this result as normal/abnormal . RBC (test code = 4.08 See_Comment L [Automated 125-8) message] The sy stem which generated this [...] RDW-SD (test code = 44.7 fL 38.5-51.6 77444-4) RDW-CV (test code = 14.5 % 12.1-15.4 788-0) PLT (test code = 199 See_Comment [Automated 777-3) message] The sy stem which generated this result transmitted reference range : 150 - 328 10*3/ ?L. The reference r mitra was not used to interpret this result as normal/abnormal . MPV (test code = 9.3 fL 9.8-13.0 L 87752-8) NRBC/100 WBC (test 0.0 See_Comment [Automat ed code = 6817029649) message] The system which generated this result transmitted reference range : 0.0 - 10.0 /100 WBCs. The refer ence range was not u sed to interpret th is result as normal/abnormal . NRBC x10^3 (test code See_Comment [Auto mated = 4628940348) message] The s ystem which generated this result transmitted reference range : 10*3/?L. The reference range was not used to interpret this result as normal/abnormal . GRAN MAT (NEUT) % 56.1 % (test code = 770-8) IMM GRAN % (test code 1.20 % = 5377625441) LYMPH % (test code = 30.8 % 736-9) MONO % (test code = 7.6 % 5905-5) EOS % (test code = 3.7 % 713-8) BASO % (test code = 0.6 % 706-2) GRAN MAT x10^3(ANC) 4.68 10*3/uL 1.99-6.95 (test code = 6852751099) IMM GRAN x10^3 (test 0.10 10*3/uL 0.00-0.06 H code = 7759837657) LYMPH x10^3 (test code 2.57 10*3/uL 1.09-3.23 = 731-0) MONO x10^3 (test code 0.63 10*3/uL 0.36-1.02 = 742-7) EOS x10^3 (test code = 0.31 10*3/uL 0.06-0.53 711-2) BASO x10^3 (test code 0.05 10*3/uL 0.01-0.09 = 704-7) Lab Interpretation Abnormal (test code = 13871-1) [facility] WITH [id number] 09:29:20 Test Item Value Reference Range Interpretation [...] RDW-SD (test code = 44.7 fL 38.5-51.6 02790-9) RDW-CV (test code = 14.5 % 12.1-15.4 788-0) PLT (test code = 199 See_Comment [Automated 777-3) message] The sy stem which generated this result transmitted reference range : 150 - 328 10*3/ ?L. The reference r mitra was not used to interpret this result as normal/abnormal . MPV (test code = 9.3 fL 9.8-13.0 L 12857-9) NRBC/100 WBC (test 0.0 See_Comment [Automat ed code = 6500935519) message] The system which generated this result transmitted reference range : 0.0 - 10.0 /100 WBCs. The refer ence range was not u sed to interpret th is result as normal/abnormal . NRBC x10^3 (test code See_Comment [Auto mated = [id number]) message] The s ystem which generated this result transmitted reference range : 10*3/?L. The reference range was not used to interpret this result as normal/abnormal . GRAN MAT (NEUT) % 56.1 % (test code = 770-8) IMM GRAN % (test code 1.20 % = 6778009661) LYMPH % (test code = 30.8 % 736-9) MONO % (test code = 7.6 % 5905-5) EOS % (test code = 3.7 % 713-8) BASO % (test code = 0.6 % 706-2) GRAN MAT x10^3(ANC) 4.68 10*3/uL 1.99-6.95 (test code = 6071654763) IMM GRAN x10^3 (test 0.10 10*3/uL 0.00-0.06 H code = 2379586664) LYMPH x10^3 (test code 2.57 10*3/uL 1.09-3.23 = 731-0) MONO x10^3 (test code 0.63 10*3/uL 0.36-1.02 = 742-7) EOS x10^3 (test code = 0.31 10*3/uL 0.06-0.53 711-2) BASO x10^3 (test code 0.05 10*3/uL 0.01-0.09 = 704-7) Lab Interpretation Abnormal (test code = 30054-2) [facility] WITH [id number] 09:29:20 Test Item Value Reference Range Interpretation [...] RDW-SD (test code = 44.7 fL 38.5-51.6 21404-3) RDW-CV (test code = 14.5 % 12.1-15.4 788-0) PLT (test code = 199 See_Comment [Automated 777-3) message] The sy stem which generated this result transmitted reference range : 150 - 328 10*3/ ?L. The reference r mitra was not used to interpret this result as normal/abnormal . MPV (test code = 9.3 fL 9.8-13.0 L 87250-1) NRBC/100 WBC (test 0.0 See_Comment [Automat ed code = 1099262101) message] The system which generated this result transmitted reference range : 0.0 - 10.0 /100 WBCs. The refer ence range was not u sed to interpret th is result as normal/abnormal . NRBC x10^3 (test code See_Comment [Auto mated = 5833069292) message] The s ystem which generated this result transmitted reference range : 10*3/?L. The reference range was not used to interpret this result as normal/abnormal . GRAN MAT (NEUT) % 56.1 % (test code = 770-8) IMM GRAN % (test code 1.20 % = 0661357440) LYMPH % (test code = 30.8 % 736-9) MONO % (test code = 7.6 % 5905-5) EOS % (test code = 3.7 % 713-8) BASO % (test code = 0.6 % 706-2) GRAN MAT x10^3(ANC) 4.68 10*3/uL 1.99-6.95 (test code = 9265468343) IMM GRAN x10^3 (test 0.10 10*3/uL 0.00-0.06 H code = 7106328051) LYMPH x10^3 (test code 2.57 10*3/uL 1.09-3.23 = 731-0) MONO x10^3 (test code 0.63 10*3/uL 0.36-1.02 = 742-7) EOS x10^3 (test code = 0.31 10*3/uL 0.06-0.53 711-2) BASO x10^3 (test code 0.05 10*3/uL 0.01-0.09 = 704-7) Lab Interpretation Abnormal (test code = 73870-3) [facility] WITH [id number] 09:29:20 Test Item Value Reference Range Interpretation [...] RDW-SD (test code = 44.7 fL 38.5-51.6 05037-7) RDW-CV (test code = 14.5 % 12.1-15.4 788-0) PLT (test code = 199 See_Comment [Automated 777-3) message] The sy stem which generated this result transmitted reference range : 150 - 328 10*3/ ?L. The reference r mitra was not used to interpret this result as normal/abnormal . MPV (test code = 9.3 fL 9.8-13.0 L 04271-7) NRBC/100 WBC (test 0.0 See_Comment [Automat ed code = 8580342402) message] The system which generated this result transmitted reference range : 0.0 - 10.0 /100 WBCs. The refer ence range was not u sed to interpret th is result as normal/abnormal . NRBC x10^3 (test code See_Comment [Auto mated = 8142848915) message] The s ystem which generated this result transmitted reference range : 10*3/?L. The reference range was not used to interpret this result as normal/abnormal . GRAN MAT (NEUT) % 56.1 % (test code = 770-8) IMM GRAN % (test code 1.20 % = 7670344437) LYMPH % (test code = 30.8 % 736-9) MONO % (test code = 7.6 % 5905-5) EOS % (test code = 3.7 % 713-8) BASO % (test code = 0.6 % 706-2) GRAN MAT x10^3(ANC) 4.68 10*3/uL 1.99-6.95 (test code = 0904124465) IMM GRAN x10^3 (test 0.10 10*3/uL 0.00-0.06 H code = 1882919696) LYMPH x10^3 (test code 2.57 10*3/uL 1.09-3.23 = 731-0) MONO x10^3 (test code 0.63 10*3/uL 0.36-1.02 = 742-7) EOS x10^3 (test code = 0.31 10*3/uL 0.06-0.53 711-2) BASO x10^3 (test code 0.05 10*3/uL 0.01-0.09 = 704-7) Lab Interpretation Abnormal (test code = 97914-1) [facility] [id number] 04:20:00 Test Item Value Reference Interpretation Comments Range Levetiracetam 4.1 ug/mL 10.0-40.0 A This test was developed and (Amelia S (test its perfor fritz code = KEPPRA.L) characteris ticsdetermined by [facility]. It has not been cleared orappro mannie by the Food and Drug Administration. Performed at: - [facility] [id number] [place], [place] [id number] Di shahid: Miriam Sevilla MD, Ph one: [phone] Drug Screen,[id number] 20:40:00 Test Item Value Reference Range Interpretation [...] Negative Negative code = UPROP) Comprehensive Metabolic Wbrub6329-77-50 19:50:00 Test Item Value Reference Range Interpretation [...] 47 U/L 46-116 N = ALP) Troponin [id number] 19:50:00 Test Item Value Reference Range Interpretation [...] 99th percentile in serialmeasureme nts. Prothrombin Time [id number] 19:50:00 Test Item Value Reference Range Interpretation Comments Prothrombin Time (test code = 10.9 Seconds 9.8-13.4 N PT) INR (test code = INR) 1.0 ratio 0.6-1.2 N Partial Thromboplastin [id number] 19:50:00 Test Item Value Reference Range Interpretation Comments Partial Thromboplastin Time 20.00 Seconds 24.39-37.25 L (test code = PTT) Complete Blood Count Auto [id number] 19:50:00 Test Item Value Reference Range Interpretation [...] code = NRBCP) 0 % B-Type Natriuretic Exwikum0662-75-77 19:50:00 Test Item Value Reference Range Interpretation Comments B-Type Natriuretic Peptide (test 30.2 pg/mL 0.0-99.9 N code = BNP) SARS-CoV-2 (COVID-19) RNA [Presence] in Respiratory specimen by COOPER with probe xaonvqxpu1232-27-22 03:31:41 Test Item Value Reference Range Interpretation Comments SARS-CoV-2 (COVID-19) RNA Not detected Not-Detected [Presence] in Respiratory specimen by COOPER with probe detection (test code = 67813-3) [facility] Metabolic Ppxjl5214-16-73 20:19:00 Test Item Value Reference Range Interpretation [...] ://nkd [email or web address].gov CT HEAD OR BRAIN WO PFVZJGYS9395-97-62 18:19:40Location code: R 15HISTORY: Intracranial hemorrhageCOMPARISON: None.TECHNIQUE: [...] Unremarkable nonenhanced CT scan of the brain.Ammonia, [id number] 12:35:00 Test Item Value Reference Range Interpretation Comments Ammonia (test code = NH3) 25.0 umol/L 11.0-35.0 N US DUPLX EXT VEINS COMPRS, [id number] 15:35:40ULTRASOUND: Bilateral lower extremity venous duplex sonography.History: [...] An IVC filter is in place.Impression:Unremarkable exam.Glycosylated Tlhqqsdmar9691-57-65 10:36:00 Test Item Value Reference Range Interpretation Comments HBA1c (test code = HBA1C) 5.1 % 4.8-5.9 N RPR, [id number] 12:10:00 Test Item Value Reference Range Interpretation Comments RPR (test code = RPR) Non-Reactive Non-Reactive N Thyroid Stimulating Hormone (TSH)2016-12-24 06:02:00 Test Item Value Reference Range Interpretation Comments TSH (test code = TSH) 1.03 mIU/mL 0.270-4.200 N Lipid Hetafmr6617-73-23 05:53:00 Test Item Value Reference Range Interpretation Comments Cholesterol (test 205 mg/dL 0-200 H code = CHOL) Triglycerides (test 69 mg/dL 9-200 N code = TRIG) HDL (test code = 68 mg/dL 40-60 H HDL) Chol/HDL (test code 3.0 Ratio 0.0-5.0 N = CHOLPHDL) LDL, Calculated 123 0-130 N (NOTE)RISK O F HEART (test code = LDLC) DISEASEPu blished by [place] Heart AssociationAnal yte Optimal Boderli ne Increased RiskC HOL <200 200-239 >240TRI G <150 150-199 >200HDL Male: >60 <40HDL Fema le: >60 <50LDL <100 130 -159 >160LDL NEAR OP TIMAL IS 100-129 VLDL (test code = 14 mg/dL 5-40 N VLDL) LDL/HDL (test code = 2 LDLPHDL) Comprehensive Metabolic [id number] 18:42:00 Test Item Value Reference Range Interpretation [...] validated by e MDRD study and christopher d be interpretedwith caution.eGFR Re sult Interpretation: eGFR > or = 60 is in t he Normal RangeeGF R < 60 may mean kidney diseaseeGFR < 1 5 may mean kidney failureRange s recommended by the National Kidney Foundation,http ://nkd ep.nih.gov CBC with Qeaoyocyfwun7788-20-56 17:59:00 Test Item Value Reference Range Interpretation [...] code = ALYMPH) 1.4 K/cumm 0.5-4.6 N [place] Abs (test code = AMONO) 0.9 K/cumm 0.0-1.2 N Eos Abs (test code = AEOS) 0.01 K/cumm 0.00-0.74 N Baso Abs (test code = ABASO) 0.0 K/cumm 0.00-0.21 N WHTIEEQOMQHO9708-26-11 18:46:00 Test Item Value Reference Range Interpretation Comments ALT (test code = ALT) 100 See_Comment [Auto mated message] The system which ge nerated this result transmit elizabeth reference range : <=65. The reference range was not used to interpr et this result as margaret l/abnormal. [facility]oketivYOINSFETCFPU6629-38-72 18:46:00 Test Item Value Reference Range Interpretation Comments AST (test code = AST) 53 See_Comment [Auto mated message] The system which ge nerated this result transmit elizabeth reference range : <=37. The reference range was not used to interpr et this result as margaret l/abnormal. [facility] HospitalLsaujwwVKQDNFEFLUAB7764-67-73 18:46:00 Test Item Value Reference Range Interpretation Comments Total Protein (test code = Total 6.9 6.4-8.4 Protein) [facility]HkfzchrHKWRJPDPIY6055-97-38 18:46:00 Test Item Value Reference Range Interpretation Comments Eosinophils (test code = 4.2 See_Comment [A utomated message] The Eosinophils) system which ge nerated this result tra nsmitted reference range : <=4.0. The reference r mitra was not used to int erpret this result as normal/abnormal . [facility]burgSzrmutsUIVLAYYVNI3165-39-77 18:46:00 Test Item Value Reference Range Interpretation Comments Segs (test code = Segs) 56.4 45.0-75.0 [facility]burgBjzyggxLVAUEDRMUM1022-09-74 18:46:00 Test Item Value Reference Range Interpretation Comments Monocytes (test code = Monocytes) 10.3 2.0-12.0 [facility]burgKjervxhOWHUOZOEWD7933-04-25 18:46:00 Test Item Value Reference Range Interpretation Comments Lymphocytes (test code = Lymphocytes) 28.0 20.0-40.0 [place] [id number] 18:46:00 Test Item Value Reference Range Interpretation Comments Monocytes # (test code 0.5 See_Comment [Aut omated message] The = Monocytes #) system which generated this result tra nsmitted reference range : <=0.8. The reference r mitra was not used to int erpret this result as normal/abnormal . [facility]burgSlgpnwyLNHHLNSZHQ5885-67-07 18:46:00 Test Item Value Reference Range Interpretation Comments Basophils (test code = 1.1 See_Comment [Aut omated message] The Basophils) system which ge nerated this result tra nsmitted reference range : <=1.0. The reference r mitra was not used to int erpret this result as normal/abnormal . [facility]inburgZhlhrepJARVKHXAIC1838-75-41 18:46:00 Test Item Value Reference Range Interpretation Comments Lymphocytes # (test code = Lymphocytes 1.5 1.0-5.5 #) [facility]inburgUxsemzuNVYRBJTWKV4344-72-80 18:46:00 Test Item Value Reference Range Interpretation Comments Segs-Bands # (test code = Segs-Bands #) 2.9 1.5-8.1 [facility]burgAjxtzsxPZQZEWSBRW1224-53-44 18:46:00 Test Item Value Reference Range Interpretation Comments Eosinophils # (test code 0.2 See_Comment [A utomated message] The = Eosinophils #) system whic h generated this result tra nsmitted reference range : <=0.5. The reference r mitra was not used to int erpret this result as normal/abnormal . [facility]burgFkfxcxhXIHDDHXSIS5529-05-29 18:46:00 Test Item Value Reference Range Interpretation Comments Basophils # (test code 0.1 See_Comment [Aut omated message] The = Basophils #) system which generated this result tra nsmitted reference range : <=0.2. The reference r mitra was not used to int erpret this result as normal/abnormal . [facility]burgOvsqwqtAOHONEDZYO3449-60-63 18:46:00 Test Item Value Reference Range Interpretation Comments PT (test code = PT) 11.2 s 12.0-14.7 [facility]inburgDupnhipAHTDZCLQCL6360-80-78 18:46:00 Test Item Value Reference Range Interpretation Comments INR (test code = INR) 0.82 0.85-1.17 [facility]inburgZddfuwnLNLGKXMVAO7071-68-56 18:46:00 Test Item Value Reference Range Interpretation Comments PTT (test code = PTT) 28.6 s 22.9-35.8 [facility]died[facility]qHCDCAGNNMC5261-53-54 18:46:00 Test Item Value Reference Range Interpretation Comments MPV (test code = MPV) 8.1 7.4-10.4 [facility] HospitalPqnwgtiBPFQSQMNCI2447-79-51 18:46:00 Test Item Value Reference Range Interpretation Comments Platelet (test code = Platelet) 301 133-450 [facility]OugcisvVGFONGVUEJ2724-62-83 18:46:00 Test Item Value Reference Range Interpretation Comments RDW (test code = RDW) 14.5 11.5-14.5 [facility] HospitalYvtcdmbDUNWODPDJK5658-91-37 18:46:00 Test Item Value Reference Range Interpretation Comments RBC (test code = RBC) 4.84 4.70-6.10 [facility] HospitalFoqamknUZFZRWHMCO6815-29-31 18:46:00 Test Item Value Reference Range Interpretation Comments Hgb (test code = Hgb) 14.4 14.0-18.0 [facility] HendersonMzarascOMADBOHSOK2207-01-96 18:46:00 Test Item Value Reference Range Interpretation Comments WBC (test code = WBC) 5.2 3.7-10.4 [facility] HendersonKiviadbKNJKDKEQIL5621-44-79 18:46:00 Test Item Value Reference Range Interpretation Comments MCH (test code = MCH) 29.8 pg 27.0-31.0 [facility] HospitalAikbgamOIWNXYCEMZ0657-73-89 18:46:00 Test Item Value Reference Range Interpretation Comments MCV (test code = MCV) 92.0 80.0-94.0 [facility]FsrqvldYIPUKHLRSM7331-43-24 18:46:00 Test Item Value Reference Range Interpretation Comments Hct (test code = Hct) 44.5 42.0-54.0 [facility] HendersonYppmdbjKRVLCFNXZI0940-56-30 18:46:00 Test Item Value Reference Range Interpretation Comments MCHC (test code = MCHC) 32.4 32.0-36.0 [facility] HendersonSapiulrMBYRVDWNTI9034-99-04 18:46:00 Test Item Value Reference Range Interpretation Comments [place]roy-Hep C Ab (test Negative *NA*(07/22/14 code = Elroy-Hep C 1:46 PM) Ab) [facility] AND [id number] 18:46:00 Test Item Value Reference Range Interpretation Comments UA Urobilinogen (test code = UA <=1.0 mg/dL 0.1-1.0 Urobilinogen) [facility] AND [id number] 18:46:00 Test Item Value Reference Range Interpretation Comments UA Sq Epi (test code = UA Sq Epi) None Seen [facility] AND [id number] 18:46:00 Test Item Value Reference Range Interpretation Comments UA Leuk Est (test Negative (07/22/14 1:46 code = UA Leuk Est) PM) [facility] AND VWEAX0768-07-09 18:46:00 Test Item Value Reference Range Interpretation Comments UA Nitrite (test code Negative (07/22/14 1:46 = UA Nitrite) PM) [facility] AND [id number] 18:46:00 Test Item Value Reference Range Interpretation Comments UA Blood (test code = Negative (07/22/14 1:46 UA Blood) PM) [facility] AND [id number] 18:46:00 Test Item Value Reference Range Interpretation Comments UA Ketones (test code = UA Negative mg/dL Ketones) [facility] AND [id number] 18:46:00 Test Item Value Reference Range Interpretation Comments UA Bili (test code = Negative *NA*(07/22/14 UA Bili) 1:46 PM) [facility] AND [id number] 18:46:00 Test Item Value Reference Range Interpretation Comments UA Bacteria (test code = UA Occasional /HPF Bacteria) [facility] AND [id number] 18:46:00 Test Item Value Reference Range Interpretation Comments UA RBC (test code = no gt See_Comment [Automa elizabeth message] The UA RBC) system which ge nerated this result transmit elizabeth reference range : <=2. The reference range was not used to interpr et this result as margaret l/abnormal. [facility] AND EQEVY6533-45-26 18:46:00 Test Item Value Reference Range Interpretation Comments UA WBC (test code = 1 See_Comment [Automa elizabeth message] The UA WBC) system which ge nerated this result transmit elizabeth reference range : <=5. The reference range was not used to interpr et this result as margaret l/abnormal. [facility] AND JRXOQ0992-78-87 18:46:00 Test Item Value Reference Range Interpretation Comments UA Glucose (test code = UA Glucose) 30 mg/dL [facility] AND [id number] 18:46:00 Test Item Value Reference Range Interpretation Comments UA Protein (test code = UA Negative mg/dL Protein) [facility] AND [id number] 18:46:00 Test Item Value Reference Range Interpretation Comments UA pH (test code = UA pH) 6.5 5.0-8.0 [facility] AND [id number] 18:46:00 Test Item Value Reference Range Interpretation Comments UA Turbidity (test code = Clear (07/22/14 1:46 UA Turbidity) PM) [facility] AND [id number] 18:46:00 Test Item Value Reference Range Interpretation Comments UA Spec Grav (test code = UA Spec Grav) 1.010 [facility] AND [id number] 18:46:00 Test Item Value Reference Range Interpretation Comments UA Color (test code = Light Yellow UA Color) *NA*(07/22/14 1:46 PM) [facility] EQRCE3906-87-83 18:46:00 Test Item Value Reference Range Interpretation Comments Magnesium Lvl (test code = Magnesium 1.8 1.8-2.4 Lvl) [facility] HospitalTkribbyPLJQMGFVTNEX9722-46-16 18:46:00 Test Item Value Reference Range Interpretation Comments AGAP (test code = AGAP) 13.2 10.0-20.0 [facility] HospitalQjnllxgHGUNTUYCRSVG6834-32-99 18:46:00 Test Item Value Reference Range Interpretation Comments B/C Ratio (test code = B/C Ratio) 18 6-25 [facility] HospitalWtmuincEOJCMGRIHTRX2186-69-54 18:46:00 Test Item Value Reference Range Interpretation Comments A/G Ratio (test code = A/G Ratio) 1.1 0.7-1.6 [facility] HospitalPzmwkpkKGAQBEUJQNTO2299-90-36 18:46:00 Test Item Value Reference Range Interpretation Comments Globulin (test code = Globulin) 3.3 2.0-4.0 [facility] HospitalNicudfuRLKAEHBEIEWL3667-69-07 18:46:00 Test Item Value Reference Range Interpretation Comments eGFR (test code = eGFR) 99 [facility] HospitalZlmdwdtPJQSUSNCBUDN3847-36-33 18:46:00 Test Item Value Reference Range Interpretation Comments Calcium Lvl (test code = Calcium Lvl) 9.0 8.5-10.5 [facility] HospitalMcopwseDWYVREYITQHK3276-98-41 18:46:00 Test Item Value Reference Range Interpretation Comments Chloride Lvl (test code = Chloride Lvl) 106 95-109 [facility] HospitalIlxtokuSCUVOXNTLOMF7299-07-35 18:46:00 Test Item Value Reference Range Interpretation Comments Creatinine Lvl (test code = Creatinine 0.9 0.5-1.4 Lvl) [facility] HospitalSuiouepXYIWPMLUHABJ6171-49-09 18:46:00 Test Item Value Reference Range Interpretation Comments Potassium Lvl (test code = Potassium 4.2 3.5-5.1 Lvl) [facility] HospitalHttbusiIDPSDDDUHOLZ4382-19-02 18:46:00 Test Item Value Reference Range Interpretation Comments Sodium Lvl (test code = Sodium Lvl) 139 135-145 [facility] HospitalRssfeyoQVBLBYKFFRIM9154-59-26 18:46:00 Test Item Value Reference Range Interpretation Comments CO2 (test code = CO2) 24 24-32 [facility] HospitalZmyhdykLKBFXILNOQTN6886-40-62 18:46:00 Test Item Value Reference Range Interpretation Comments BUN (test code = BUN) 16 7-22 [facility] HospitalHzsqfzpOAKQHBEEQNUW8764-27-82 18:46:00 Test Item Value Reference Range Interpretation Comments Glucose Lvl (test code = Glucose Lvl) 141 70-99 [facility] HospitalAwjzuwhKWNNWMWUOHCR3947-26-23 18:46:00 Test Item Value Reference Range Interpretation Comments Albumin Lvl (test code = Albumin Lvl) 3.6 3.5-5.0 [facility] HospitalDzctvufLPIOXSPIGPFO8962-48-97 18:46:00 Test Item Value Reference Range Interpretation Comments Alk Phos (test code = Alk Phos) 65 39-136 [facility] HospitalUmpwcdeLFCAIGXZLSKZ5478-01-94 18:46:00 Test Item Value Reference Range Interpretation Comments Bili Total (test code = Bili Total) 0.3 0.2-1.3 [facility] HospitalHmdlcjnFHEBSABUYKHC6856-96-38 18:46:00 Test Item Value Reference Range Interpretation Comments ALT (test code = ALT) 100 See_Comment [Auto mated message] The system which ge nerated this result transmit elizabeth reference range : <=65. The reference range was not used to interpr et this result as margaret l/abnormal. [facility] HospitalKlpcaqrLICMXBHHVXOG6192-26-84 18:46:00 Test Item Value Reference Range Interpretation Comments AST (test code = AST) 53 See_Comment [Auto mated message] The system which ge nerated this result transmit elizabeth reference range : <=37. The reference range was not used to interpr et this result as margaret l/abnormal. [facility] HospitalDjjveoyBCXIWNQWBUQF4115-90-13 18:46:00 Test Item Value Reference Range Interpretation Comments Total Protein (test code = Total 6.9 6.4-8.4 Protein) [facility]burgAplflfkSHGEVBCHEV5177-13-09 18:46:00 Test Item Value Reference Range Interpretation Comments Eosinophils (test code = 4.2 See_Comment [A utomated message] The Eosinophils) system which ge nerated this result tra nsmitted reference range : <=4.0. The reference r mitra was not used to int erpret this result as normal/abnormal . [facility]burgFmnetqqDIFNWOSIVD0823-40-42 18:46:00 Test Item Value Reference Range Interpretation Comments Segs (test code = Segs) 56.4 45.0-75.0 [facility]burgJifvunkRXZPPAJMRD3833-31-43 18:46:00 Test Item Value Reference Range Interpretation Comments Monocytes (test code = Monocytes) 10.3 2.0-12.0 [place] 393085-06-09 18:46:00 Test Item Value Reference Range Interpretation Comments Lymphocytes (test code = Lymphocytes) 28.0 20.0-40.0 [facility]burgHgeplzqAKANNIFLNF8712-04-39 18:46:00 Test Item Value Reference Range Interpretation Comments Monocytes # (test code 0.5 See_Comment [Aut omated message] The = Monocytes #) system which generated this result tra nsmitted reference range : <=0.8. The reference r mitra was not used to int erpret this result as normal/abnormal . [facility]burgOyfgpftZFGLCAFCEQ2895-15-60 18:46:00 Test Item Value Reference Range Interpretation Comments Basophils (test code = 1.1 See_Comment [Aut omated message] The Basophils) system which ge nerated this result tra nsmitted reference range : <=1.0. The reference r mitra was not used to int erpret this result as normal/abnormal . [facility]inburgTurualeZFQDQISTRX4562-55-16 18:46:00 Test Item Value Reference Range Interpretation Comments Lymphocytes # (test code = Lymphocytes 1.5 1.0-5.5 #) [facility]burgXrpsneuOYJNSIRSHL9400-29-23 18:46:00 Test Item Value Reference Range Interpretation Comments Segs-Bands # (test code = Segs-Bands #) 2.9 1.5-8.1 [facility]inburgLmxkplcPSTMQDLQFE6177-84-64 18:46:00 Test Item Value Reference Range Interpretation Comments Eosinophils # (test code 0.2 See_Comment [A utomated message] The = Eosinophils #) system whic h generated this result tra nsmitted reference range : <=0.5. The reference r mitra was not used to int erpret this result as normal/abnormal . [facility]inburgYatywwrWIFWKVFFGK4233-52-92 18:46:00 Test Item Value Reference Range Interpretation Comments Basophils # (test code 0.1 See_Comment [Aut omated message] The = Basophils #) system which generated this result tra nsmitted reference range : <=0.2. The reference r mitra was not used to int erpret this result as normal/abnormal . [facility]PnwlalcJDVNUVTNQG5296-92-36 18:46:00 Test Item Value Reference Range Interpretation Comments PT (test code = PT) 11.2 s 12.0-14.7 [place] [id number] 18:46:00 Test Item Value Reference Range Interpretation Comments INR (test code = INR) 0.82 0.85-1.17 [facility]burgZyrvzxvFUTVFQBFLG6357-76-78 18:46:00 Test Item Value Reference Range Interpretation Comments PTT (test code = PTT) 28.6 s 22.9-35.8 [facility]burgHhbhkrqLNRRAVQNFF8729-18-65 18:46:00 Test Item Value Reference Range Interpretation Comments MPV (test code = MPV) 8.1 7.4-10.4 [facility]burgNjdgqjxQBJMYTQGGV3187-58-09 18:46:00 Test Item Value Reference Range Interpretation Comments Platelet (test code = Platelet) 301 133-450 [facility]burgWpopelvRXDNCENHKJ0877-36-02 18:46:00 Test Item Value Reference Range Interpretation Comments RDW (test code = RDW) 14.5 11.5-14.5 [facility]KOQWRIZRH5755-[facility] 18:46:00 Test Item Value Reference Range Interpretation Comments RBC (test code = RBC) 4.84 4.70-6.10 [facility]swNSARFTXUXT2702-46-16 18:46:00 Test Item Value Reference Range Interpretation Comments Hgb (test code = Hgb) 14.4 14.0-18.0 [facility] HospitalVuhontrODTHDKTDKN9403-54-80 18:46:00 Test Item Value Reference Range Interpretation Comments WBC (test code = WBC) 5.2 3.7-10.4 [facility] HospitalSfpuedhBCIFUKSSFZ3029-04-79 18:46:00 Test Item Value Reference Range Interpretation Comments MCH (test code = MCH) 29.8 pg 27.0-31.0 [facility]burgMxmzfjoWGRAHCAJHX8113-94-73 18:46:00 Test Item Value Reference Range Interpretation Comments MCV (test code = MCV) 92.0 80.0-94.0 [facility]EdpulbfVCKXIXRVEB9228-68-75 18:46:00 Test Item Value Reference Range Interpretation Comments Hct (test code = Hct) 44.5 42.0-54.0 [facility] HospitalCsxpojtUEFMLOFXSG9092-95-24 18:46:00 Test Item Value Reference Range Interpretation Comments MCHC (test code = MCHC) 32.4 32.0-36.0 [facility]AqoewcqVMEOAKFVEI3104-63-01 18:46:00 Test Item Value Reference Range Interpretation Comments Elroy-Hep C Ab (test Negative *NA*(07/22/14 code = Elroy-Hep C 1:46 PM) Ab) [facility] AND [id number] 18:46:00 Test Item Value Reference Range Interpretation Comments UA Urobilinogen (test code = UA <=1.0 mg/dL 0.1-1.0 Urobilinogen) [facility] [id number] 18:46:00 Test Item Value Reference Range Interpretation Comments UA Sq Epi (test code = UA Sq Epi) None Seen [facility] AND [id number] 18:46:00 Test Item Value Reference Range Interpretation Comments UA Leuk Est (test Negative (07/22/14 1:46 code = UA Leuk Est) PM) [facility] [id number] 18:46:00 Test Item Value Reference Range Interpretation Comments UA Nitrite (test code Negative (07/22/14 1:46 = UA Nitrite) PM) [facility] AND [id number] 18:46:00 Test Item Value Reference Range Interpretation Comments UA Blood (test code = Negative (07/22/14 1:46 UA Blood) PM) [facility] AND [id number] 18:46:00 Test Item Value Reference Range Interpretation Comments UA Ketones (test code = UA Negative mg/dL Ketones) [facility] AND [id number] 18:46:00 Test Item Value Reference Range Interpretation Comments UA Bili (test code = Negative *NA*(07/22/14 UA Bili) 1:46 PM) [facility] AND [id number] 18:46:00 Test Item Value Reference Range Interpretation Comments UA Bacteria (test code = UA Occasional /HPF Bacteria) [facility] AND [id number] 18:46:00 Test Item Value Reference Range Interpretation Comments UA RBC (test code = no gt See_Comment [Automa elizabeth message] The UA RBC) system which ge nerated this result transmit elizabeth reference range : <=2. The reference range was not used to interpr et this result as margaret l/abnormal. [facility] AND [id number] 18:46:00 Test Item Value Reference Range Interpretation Comments UA WBC (test code = 1 See_Comment [Automa elizabeth message] The UA WBC) system which ge nerated this result transmit elizabeth reference range : <=5. The reference range was not used to interpr et this result as margaret l/abnormal. [facility] AND [id number] 18:46:00 Test Item Value Reference Range Interpretation Comments UA Glucose (test code = UA Glucose) 30 mg/dL [facility] AND [id number] 18:46:00 Test Item Value Reference Range Interpretation Comments UA Protein (test code = UA Negative mg/dL Protein) [facility] AND [id number] 18:46:00 Test Item Value Reference Range Interpretation Comments UA pH (test code = UA pH) 6.5 5.0-8.0 [facility] AND [id number] 18:46:00 Test Item Value Reference Range Interpretation Comments UA Turbidity (test code = Clear (07/22/14 1:46 UA Turbidity) PM) [facility] AND [id number] 18:46:00 Test Item Value Reference Range Interpretation Comments UA Spec Grav (test code = UA Spec Grav) 1.010 [facility] AND [id number] 18:46:00 Test Item Value Reference Range Interpretation Comments UA Color (test code = Light Yellow UA Color) *NA*(07/22/14 1:46 PM) [facility] [id number] 18:46:00 Test Item Value Reference Range Interpretation Comments Magnesium Lvl (test code = Magnesium 1.8 1.8-2.4 Lvl) [facility]NojmnzrQIHVIIJNLXQD9988-49-44 18:46:00 Test Item Value Reference Range Interpretation Comments AGAP (test code = AGAP) 13.2 10.0-20.0 [facility] HospitalHjlbvdwQLXTEYOOLXTC9829-15-51 18:46:00 Test Item Value Reference Range Interpretation Comments B/C Ratio (test code = B/C Ratio) 18 6-25 [facility] HospitalVrdgrkbFYIBDLVTGDHW9888-89-20 18:46:00 Test Item Value Reference Range Interpretation Comments A/G Ratio (test code = A/G Ratio) 1.1 0.7-1.6 [facility] HospitalCcojkkiKLUPXTUHLGQH4706-45-31 18:46:00 Test Item Value Reference Range Interpretation Comments Globulin (test code = Globulin) 3.3 2.0-4.0 [facility] HospitalYnrtgpkLJEMHMEGHKPC2588-48-85 18:46:00 Test Item Value Reference Range Interpretation Comments eGFR (test code = eGFR) 99 [facility] HospitalWulvuplNVNSHSMVCCUV9937-79-18 18:46:00 Test Item Value Reference Range Interpretation Comments Calcium Lvl (test code = Calcium Lvl) 9.0 8.5-10.5 [facility] HospitalKibhazdQXFUOZYNYGUG4858-50-07 18:46:00 Test Item Value Reference Range Interpretation Comments Chloride Lvl (test code = Chloride Lvl) 106 95-109 [facility] HospitalCoievarMQEHKLMADKEA2735-34-39 18:46:00 Test Item Value Reference Range Interpretation Comments Creatinine Lvl (test code = Creatinine 0.9 0.5-1.4 Lvl) [facility] HospitalKjxbjqlTAFDDIQCCKWJ8409-85-31 18:46:00 Test Item Value Reference Range Interpretation Comments Potassium Lvl (test code = Potassium 4.2 3.5-5.1 Lvl) [facility] HospitalWdwttgxPQEUBLLEUCEC3313-26-22 18:46:00 Test Item Value Reference Range Interpretation Comments Sodium Lvl (test code = Sodium Lvl) 139 135-145 [facility] HospitalDsigsmjQUCMTFXADPLR5782-20-41 18:46:00 Test Item Value Reference Range Interpretation Comments CO2 (test code = CO2) 24 24-32 [facility] HospitalLhxantgMVZMXXLSMLWX0740-91-06 18:46:00 Test Item Value Reference Range Interpretation Comments BUN (test code = BUN) 16 7-22 [facility] HospitalDchowacOIJLMAHZEKKM4090-38-20 18:46:00 Test Item Value Reference Range Interpretation Comments Glucose Lvl (test code = Glucose Lvl) 141 70-99 [facility] HospitalNehrhvnSRRWEFMUWKSD5457-21-55 18:46:00 Test Item Value Reference Range Interpretation Comments Albumin Lvl (test code = Albumin Lvl) 3.6 3.5-5.0 [facility] HospitalGafpelnOZIFJFXRFFVT5041-44-32 18:46:00 Test Item Value Reference Range Interpretation Comments Alk Phos (test code = Alk Phos) 65 39-136 [facility] HospitalByjvzorDSQXDWYYDAHP2659-89-30 18:46:00 Test Item Value Reference Range Interpretation Comments Bili Total (test code = Bili Total) 0.3 0.2-1.3 [facility] HospitalTstgflbYSGJMFFZVHRY4997-17-44 18:46:00 Test Item Value Reference Range Interpretation Comments ALT (test code = ALT) 100 See_Comment [Auto mated message] The system which ge nerated this result transmit elizabeth reference range : <=65. The reference range was not used to interpr et this result as margaret l/abnormal. [facility] HospitalLtxomrrMZHUZEXTTSQI2403-41-90 18:46:00 Test Item Value Reference Range Interpretation Comments AST (test code = AST) 53 See_Comment [Auto mated message] The system which ge nerated this result transmit elizabeth reference range : <=37. The reference range was not used to interpr et this result as margaret l/abnormal. [facility] HospitalRbldnhcVHJYBZLPGNRE1355-03-40 18:46:00 Test Item Value Reference Range Interpretation Comments Total Protein (test code = Total 6.9 6.4-8.4 Protein) [facility]burgRgrkfpeAODWDXSALW4506-00-56 18:46:00 Test Item Value Reference Range Interpretation Comments Eosinophils (test code = 4.2 See_Comment [A utomated message] The Eosinophils) system which ge nerated this result tra nsmitted reference range : <=4.0. The reference r mitra was not used to int erpret this result as normal/abnormal . [facility]burgXxgnszeOTUMXRQQAC6826-04-87 18:46:00 Test Item Value Reference Range Interpretation Comments Segs (test code = Segs) 56.4 45.0-75.0 [facility]burgOupsqddUBHXTLWEET9726-45-89 18:46:00 Test Item Value Reference Range Interpretation Comments Monocytes (test code = Monocytes) 10.3 2.0-12.0 [facility]burgEdymsagMQFLBHXLLK9459-52-09 18:46:00 Test Item Value Reference Range Interpretation Comments Lymphocytes (test code = Lymphocytes) 28.0 20.0-40.0 [facility]burgJlkwsogSSIOZMBSSE0422-96-39 18:46:00 Test Item Value Reference Range Interpretation Comments Monocytes # (test code 0.5 See_Comment [Aut omated message] The = Monocytes #) system which generated this result tra nsmitted reference range : <=0.8. The reference r mitra was not used to int erpret this result as normal/abnormal . [facility]burgVhumzaiOALAGVCVQK9642-58-64 18:46:00 Test Item Value Reference Range Interpretation Comments Basophils (test code = 1.1 See_Comment [Aut omated message] The Basophils) system which ge nerated this result tra nsmitted reference range : <=1.0. The reference r mitra was not used to int erpret this result as normal/abnormal . [facility]burgAfckltlIFWXAMFLDB7525-09-16 18:46:00 Test Item Value Reference Range Interpretation Comments Lymphocytes # (test code = Lymphocytes 1.5 1.0-5.5 #) [facility]burgXifhbkxJIAKDOSHDZ8584-55-38 18:46:00 Test Item Value Reference Range Interpretation Comments Segs-Bands # (test code = Segs-Bands #) 2.9 1.5-8.1 [facility]burgEpupbaxZLTWIJQIYA7048-79-33 18:46:00 Test Item Value Reference Range Interpretation Comments Eosinophils # (test code 0.2 See_Comment [A utomated message] The = Eosinophils #) system whic h generated this result tra nsmitted reference range : <=0.5. The reference r mitra was not used to int erpret this result as normal/abnormal . [facility]burgMkayyxmATGYBGSRXM8055-35-29 18:46:00 Test Item Value Reference Range Interpretation Comments Basophils # (test code 0.1 See_Comment [Aut omated message] The = Basophils #) system which generated this result tra nsmitted reference range : <=0.2. The reference r mitra was not used to int erpret this result as normal/abnormal . [facility]burgUoumnfrPGQTJYLBIB3385-09-15 18:46:00 Test Item Value Reference Range Interpretation Comments PT (test code = PT) 11.2 s 12.0-14.7 [facility]burgXvpngpmAGNBXHJRWC2326-18-42 18:46:00 Test Item Value Reference Range Interpretation Comments INR (test code = INR) 0.82 0.85-1.17 [facility]burgBkrxmwbDCQOJWGVVN0591-63-21 18:46:00 Test Item Value Reference Range Interpretation Comments PTT (test code = PTT) 28.6 s 22.9-35.8 [facility]burgSurtrplXYDKGATCQJ8419-09-93 18:46:00 Test Item Value Reference Range Interpretation Comments MPV (test code = MPV) 8.1 7.4-10.4 [facility]burgIoykjodSREQMNZYTQ7441-23-61 18:46:00 Test Item Value Reference Range Interpretation Comments Platelet (test code = Platelet) 301 133-450 [facility]burgRjooylhKNATUQBHRF5498-37-80 18:46:00 Test Item Value Reference Range Interpretation Comments RDW (test code = RDW) 14.5 11.5-14.5 [facility]burgHyljuevCEVAUZIAQG3744-19-53 18:46:00 Test Item Value Reference Range Interpretation Comments RBC (test code = RBC) 4.84 4.70-6.10 [facility]burgPazkbypHHEZQGHXJF5463-80-73 18:46:00 Test Item Value Reference Range Interpretation Comments Hgb (test code = Hgb) 14.4 14.0-18.0 [facility]burgAwuhezzRZXKYHMYUP4267-68-39 18:46:00 Test Item Value Reference Range Interpretation Comments WBC (test code = WBC) 5.2 3.7-10.4 [facility]burgXvpqwbpPSYXRVNKIK6949-06-17 18:46:00 Test Item Value Reference Range Interpretation Comments MCH (test code = MCH) 29.8 pg 27.0-31.0 [facility]QchsjihSEMGBWTXPP7227-14-03 18:46:00 Test Item Value Reference Range Interpretation Comments MCV (test code = MCV) 92.0 80.0-94.0 [facility]MnmrqbuRAQVXMQDRR1027-58-30 18:46:00 Test Item Value Reference Range Interpretation Comments Hct (test code = Hct) 44.5 42.0-54.0 [facility] HospitalKfmolnjRRUZEQQYCY2040-23-99 18:46:00 Test Item Value Reference Range Interpretation Comments MCHC (test code = MCHC) 32.4 32.0-36.0 [facility]QaytqvrLDOKBFKWUC2962-06-44 18:46:00 Test Item Value Reference Range Interpretation Comments [place]-Hep C Ab (test Negative *NA*(07/22/14 code = [place]-Hep C 1:46 PM) Ab) [facility] AND [id number] 18:46:00 Test Item Value Reference Range Interpretation Comments UA Urobilinogen (test code = UA <=1.0 mg/dL 0.1-1.0 Urobilinogen) [facility] AND [id number] 18:46:00 Test Item Value Reference Range Interpretation Comments UA Sq Epi (test code = UA Sq Epi) None Seen [facility] AND [id number] 18:46:00 Test Item Value Reference Range Interpretation Comments UA Leuk Est (test Negative (07/22/14 1:46 code = UA Leuk Est) PM) [facility] AND [id number] 18:46:00 Test Item Value Reference Range Interpretation Comments UA Nitrite (test code Negative (07/22/14 1:46 = UA Nitrite) PM) [facility] AND [id number] 18:46:00 Test Item Value Reference Range Interpretation Comments UA Blood (test code = Negative (07/22/14 1:46 UA Blood) PM) [facility] AND [id number] 18:46:00 Test Item Value Reference Range Interpretation Comments UA Ketones (test code = UA Negative mg/dL Ketones) [facility] AND [id number] 18:46:00 Test Item Value Reference Range Interpretation Comments UA Bili (test code = Negative *NA*(07/22/14 UA Bili) 1:46 PM) [facility] [id number] 18:46:00 Test Item Value Reference Range Interpretation Comments UA Bacteria (test code = UA Occasional /HPF Bacteria) [facility] [id number] 18:46:00 Test Item Value Reference Range Interpretation Comments UA RBC (test code = no gt See_Comment [Automa elizabeth message] The UA RBC) system which ge nerated this result transmit elizabeth reference range : <=2. The reference range was not used to interpr et this result as margaret l/abnormal. [facility] [id number] 18:46:00 Test Item Value Reference Range Interpretation Comments UA WBC (test code = 1 See_Comment [Automa elizabeth message] The UA WBC) system which ge nerated this result transmit elizabeth reference range : <=5. The reference range was not used to interpr et this result as margaret l/abnormal. [facility] [id number] 18:46:00 Test Item Value Reference Range Interpretation Comments UA Glucose (test code = UA Glucose) 30 mg/dL [facility] AND [id number] 18:46:00 Test Item Value Reference Range Interpretation Comments UA Protein (test code = UA Negative mg/dL Protein) [facility] [id number] 18:46:00 Test Item Value Reference Range Interpretation Comments UA pH (test code = UA pH) 6.5 5.0-8.0 [facility] AND [id number] 18:46:00 Test Item Value Reference Range Interpretation Comments UA Turbidity (test code = Clear (07/22/14 1:46 UA Turbidity) PM) [facility] [id number] 18:46:00 Test Item Value Reference Range Interpretation Comments UA Spec Grav (test code = UA Spec Grav) 1.010 [facility] [id number] 18:46:00 Test Item Value Reference Range Interpretation Comments UA Color (test code = Light Yellow UA Color) *NA*(07/22/14 1:46 PM) [facility]annCHEM [id number] 18:46:00 Test Item Value Reference Range Interpretation Comments Magnesium Lvl (test code = Magnesium 1.8 1.8-2.4 Lvl) [facility] HospitalTeyprvuNXYFGIXIHMIV8720-22-48 18:46:00 Test Item Value Reference Range Interpretation Comments AGAP (test code = AGAP) 13.2 10.0-20.0 [facility] HospitalRopijnxPKYLFJFTRWFD6015-20-57 18:46:00 Test Item Value Reference Range Interpretation Comments B/C Ratio (test code = B/C Ratio) 18 6-25 [facility] HospitalEqrzoedMZGWWALMLRDI5080-91-63 18:46:00 Test Item Value Reference Range Interpretation Comments A/G Ratio (test code = A/G Ratio) 1.1 0.7-1.6 [facility] HospitalMmsubruRHICSLUTTKGV9894-06-12 18:46:00 Test Item Value Reference Range Interpretation Comments Globulin (test code = Globulin) 3.3 2.0-4.0 [facility] HospitalEvoqnvdGFIIQDMYPAET0895-90-84 18:46:00 Test Item Value Reference Range Interpretation Comments eGFR (test code = eGFR) 99 [facility] HospitalFdtpdevLCTWEPRLIFOB8669-40-18 18:46:00 Test Item Value Reference Range Interpretation Comments Calcium Lvl (test code = Calcium Lvl) 9.0 8.5-10.5 [facility] HospitalHixoyofKUSTPDVRZZAJ8379-55-28 18:46:00 Test Item Value Reference Range Interpretation Comments Chloride Lvl (test code = Chloride Lvl) 106 95-109 [facility] HospitalIphihzjJLLVSEWGUVIW4766-61-14 18:46:00 Test Item Value Reference Range Interpretation Comments Creatinine Lvl (test code = Creatinine 0.9 0.5-1.4 Lvl) [facility] HospitalAziloksBFZZVPAYKWBG6446-45-94 18:46:00 Test Item Value Reference Range Interpretation Comments Potassium Lvl (test code = Potassium 4.2 3.5-5.1 Lvl) [facility] HospitalCiroksoXYTQBADHDTRF8379-36-08 18:46:00 Test Item Value Reference Range Interpretation Comments Sodium Lvl (test code = Sodium Lvl) 139 135-145 [facility] HospitalIleuqztBSZFOFGEGRXZ4418-76-12 18:46:00 Test Item Value Reference Range Interpretation Comments CO2 (test code = CO2) 24 24-32 [facility] HospitalCatjftkRPIVSCHXATET5178-04-18 18:46:00 Test Item Value Reference Range Interpretation Comments BUN (test code = BUN) 16 7-22 [facility] HospitalLtlghhgHQRWDUBKDBNL2619-47-09 18:46:00 Test Item Value Reference Range Interpretation Comments Glucose Lvl (test code = Glucose Lvl) 141 70-99 [facility] HospitalIktkwmxRIYDNXAKAORD5468-75-00 18:46:00 Test Item Value Reference Range Interpretation Comments Albumin Lvl (test code = Albumin Lvl) 3.6 3.5-5.0 [facility] HospitalBmjwuoiHMUSGMNCXUTF2611-93-41 18:46:00 Test Item Value Reference Range Interpretation Comments Alk Phos (test code = Alk Phos) 65 39-136 [facility] HospitalKbnwpxnIHHJIURLCDEJ3289-71-13 18:46:00 Test Item Value Reference Range Interpretation Comments Bili Total (test code = Bili Total) 0.3 0.2-1.3 [facility] HospitalJlrxmgfUYYYYKXXAPKB5016-57-03 18:46:00 Test Item Value Reference Range Interpretation Comments ALT (test code = ALT) 100 See_Comment [Auto mated message] The system which ge nerated this result transmit elizabeth reference range : <=65. The reference range was not used to interpr et this result as margaret l/abnormal. [facility] HospitalXwcnqsxJRFFRPSKYRMH6215-31-50 18:46:00 Test Item Value Reference Range Interpretation Comments AST (test code = AST) 53 See_Comment [Auto mated message] The system which ge nerated this result transmit elizabeth reference range : <=37. The reference range was not used to interpr et this result as margaret l/abnormal. [facility] HospitalSxidretRQIRMWHWVRTC8032-14-28 18:46:00 Test Item Value Reference Range Interpretation Comments Total Protein (test code = Total 6.9 6.4-8.4 Protein) [facility]burgKidyjmnZKTZPPXSBX3211-64-61 18:46:00 Test Item Value Reference Range Interpretation Comments Eosinophils (test code = 4.2 See_Comment [A utomated message] The Eosinophils) system which ge nerated this result tra nsmitted reference range : <=4.0. The reference r mitra was not used to int erpret this result as normal/abnormal . [facility]burgSmbpjrpUDNNTSIFCV2693-95-77 18:46:00 Test Item Value Reference Range Interpretation Comments Segs (test code = Segs) 56.4 45.0-75.0 [facility]burgYbxwcrmWDAFXSKAHW0519-87-85 18:46:00 Test Item Value Reference Range Interpretation Comments Monocytes (test code = Monocytes) 10.3 2.0-12.0 [facility]burgWufvgicEWPRSBRKHV7642-15-75 18:46:00 Test Item Value Reference Range Interpretation Comments Lymphocytes (test code = Lymphocytes) 28.0 20.0-40.0 [facility]burgQwlxyhoTNVZGIQUUF0728-46-16 18:46:00 Test Item Value Reference Range Interpretation Comments Monocytes # (test code 0.5 See_Comment [Aut omated message] The = Monocytes #) system which generated this result tra nsmitted reference range : <=0.8. The reference r mitra was not used to int erpret this result as normal/abnormal . [facility]burgQvuzqrqLRSTNGGXTW5231-06-92 18:46:00 Test Item Value Reference Range Interpretation Comments Basophils (test code = 1.1 See_Comment [Aut omated message] The Basophils) system which ge nerated this result tra nsmitted reference range : <=1.0. The reference r mitra was not used to int erpret this result as normal/abnormal . [facility]inburgFqscoonQAXQEKABZV2575-03-43 18:46:00 Test Item Value Reference Range Interpretation Comments Lymphocytes # (test code = Lymphocytes 1.5 1.0-5.5 #) [facility]inburgTvxeijkMGAZGXUASH6386-14-52 18:46:00 Test Item Value Reference Range Interpretation Comments Segs-Bands # (test code = Segs-Bands #) 2.9 1.5-8.1 [facility]burgSicofcyRYZIGWKEZO1189-52-46 18:46:00 Test Item Value Reference Range Interpretation Comments Eosinophils # (test code 0.2 See_Comment [A utomated message] The = Eosinophils #) system ic h generated this result tra nsmitted reference range : <=0.5. The reference r mitra was not used to int erpret this result as normal/abnormal . [facility]burgCknferdUTHETZTILX8225-78-18 18:46:00 Test Item Value Reference Range Interpretation Comments Basophils # (test code 0.1 See_Comment [Aut omated message] The = Basophils #) system which generated this result tra nsmitted reference range : <=0.2. The reference r mitra was not used to int erpret this result as normal/abnormal . [facility]burgMfaapncYZHPSUOIYO9319-98-98 18:46:00 Test Item Value Reference Range Interpretation Comments PT (test code = PT) 11.2 s 12.0-14.7 [facility]burgOsfoikzBRUGYDZLYM4130-56-65 18:46:00 Test Item Value Reference Range Interpretation Comments INR (test code = INR) 0.82 0.85-1.17 [facility] [place]axnSDRERXOWKI8481-31-28 18:46:00 Test Item Value Reference Range Interpretation Comments PTT (test code = PTT) 28.6 s 22.9-35.8 [facility] [place]NeqrcogTBAVLOYFAD7322-03-65 18:46:00 Test Item Value Reference Range Interpretation Comments MPV (test code = MPV) 8.1 7.4-10.4 [facility] [place]KkaccwiJUMUFFHTFR9862-70-06 18:46:00 Test Item Value Reference Range Interpretation Comments Platelet (test code = Platelet) 301 133-450 [facility] [place]KiotpwqPUGRALWEYV7395-22-95 18:46:00 Test Item Value Reference Range Interpretation Comments RDW (test code = RDW) 14.5 11.5-14.5 [facility] [place]OvyonriOOSTXSWCXU6783-94-77 18:46:00 Test Item Value Reference Range Interpretation Comments RBC (test code = RBC) 4.84 4.70-6.10 [facility] [place]burgCppraouUQAGRUZVMI6745-89-18 18:46:00 Test Item Value Reference Range Interpretation Comments Hgb (test code = Hgb) 14.4 14.0-18.0 [facility] [place]XbienfsODLPGDTFPJ3209-45-50 18:46:00 Test Item Value Reference Range Interpretation Comments WBC (test code = WBC) 5.2 3.7-10.4 [facility] [place]burgQaamgwaNBACLHEVVL8914-93-12 18:46:00 Test Item Value Reference Range Interpretation Comments MCH (test code = MCH) 29.8 pg 27.0-31.0 [facility] [place]MumkykdTCMVEQVVBR7286-80-04 18:46:00 Test Item Value Reference Range Interpretation Comments MCV (test code = MCV) 92.0 80.0-94.0 [facility] [place]IkimbmdJCINNIKHGQ3755-86-99 18:46:00 Test Item Value Reference Range Interpretation Comments Hct (test code = Hct) 44.5 42.0-54.0 [facility] [place]KymsiwtBPLXMTBRGX1252-16-97 18:46:00 Test Item Value Reference Range Interpretation Comments MCHC (test code = MCHC) 32.4 32.0-36.0 [facility] IkugjwhQCOXOAXQLG5440-14-01 18:46:00 Test Item Value Reference Range Interpretation Comments Elroy-Hep C Ab (test Negative *NA*(07/22/14 code = Elroy-Hep C 1:46 PM) Ab) [facility] AND [id number] 18:46:00 Test Item Value Reference Range Interpretation Comments UA Urobilinogen (test code = UA <=1.0 mg/dL 0.1-1.0 Urobilinogen) [facility] AND [id number] 18:46:00 Test Item Value Reference Range Interpretation Comments UA Sq Epi (test code = UA Sq Epi) None Seen [facility] AND [id number] 18:46:00 Test Item Value Reference Range Interpretation Comments UA Leuk Est (test Negative (07/22/14 1:46 code = UA Leuk Est) PM) [facility] AND [id number] 18:46:00 Test Item Value Reference Range Interpretation Comments UA Nitrite (test code Negative (07/22/14 1:46 = UA Nitrite) PM) [facility] AND [id number] 18:46:00 Test Item Value Reference Range Interpretation Comments UA Blood (test code = Negative (07/22/14 1:46 UA Blood) PM) [facility] AND [id number] 18:46:00 Test Item Value Reference Range Interpretation Comments UA Ketones (test code = UA Negative mg/dL Ketones) [facility] AND [id number] 18:46:00 Test Item Value Reference Range Interpretation Comments UA Bili (test code = Negative *NA*(07/22/14 UA Bili) 1:46 PM) [facility] AND [id number] 18:46:00 Test Item Value Reference Range Interpretation Comments UA Bacteria (test code = UA Occasional /HPF Bacteria) [facility] AND [id number] 18:46:00 Test Item Value Reference Range Interpretation Comments UA RBC (test code = no gt See_Comment [Automa elizabeth message] The UA RBC) system which ge nerated this result transmit elizabeth reference range : <=2. The reference range was not used to interpr et this result as margaret l/abnormal. [facility] AND [id number] 18:46:00 Test Item Value Reference Range Interpretation Comments UA WBC (test code = 1 See_Comment [Automa elizabeth message] The UA WBC) system which ge nerated this result transmit elizabeth reference range : <=5. The reference range was not used to interpr et this result as margaret l/abnormal. [facility] AND [id number] 18:46:00 Test Item Value Reference Range Interpretation Comments UA Glucose (test code = UA Glucose) 30 mg/dL [facility] AND [id number] 18:46:00 Test Item Value Reference Range Interpretation Comments UA Protein (test code = UA Negative mg/dL Protein) [facility] AND [id number] 18:46:00 Test Item Value Reference Range Interpretation Comments UA pH (test code = UA pH) 6.5 5.0-8.0 [facility] AND [id number] 18:46:00 Test Item Value Reference Range Interpretation Comments UA Turbidity (test code = Clear (07/22/14 1:46 UA Turbidity) PM) [facility] AND [id number] 18:46:00 Test Item Value Reference Range Interpretation Comments UA Spec Grav (test code = UA Spec Grav) 1.010 [facility] AND [id number] 18:46:00 Test Item Value Reference Range Interpretation Comments UA Color (test code = Light Yellow UA Color) *NA*(07/22/14 1:46 PM) [facility] [id number] 18:46:00 Test Item Value Reference Range Interpretation Comments Magnesium Lvl (test code = Magnesium 1.8 1.8-2.4 Lvl) [facility]gebqSDYDLQNRHQBD0613-22-38 18:46:00 Test Item Value Reference Range Interpretation Comments AGAP (test code = AGAP) 13.2 10.0-20.0 [facility] HospitalVddwavfUBHDFKHCPTWC6313-13-96 18:46:00 Test Item Value Reference Range Interpretation Comments B/C Ratio (test code = B/C Ratio) 18 6-25 [facility] HospitalUozklisJOTOKHRDRVVG2518-17-35 18:46:00 Test Item Value Reference Range Interpretation Comments A/G Ratio (test code = A/G Ratio) 1.1 0.7-1.6 [facility] HospitalRnelfngDCTKTEVVOTFY9805-79-36 18:46:00 Test Item Value Reference Range Interpretation Comments Globulin (test code = Globulin) 3.3 2.0-4.0 [facility] HospitalMjcfjtzCJFYFOTEQYWB9462-70-92 18:46:00 Test Item Value Reference Range Interpretation Comments eGFR (test code = eGFR) 99 [facility] HospitalQolxejeOQZWWYQIPEBI5479-93-35 18:46:00 Test Item Value Reference Range Interpretation Comments Calcium Lvl (test code = Calcium Lvl) 9.0 8.5-10.5 [facility] HospitalNhzucinUBXKOSYIUJSO6576-76-29 18:46:00 Test Item Value Reference Range Interpretation Comments Chloride Lvl (test code = Chloride Lvl) 106 95-109 [facility] HospitalLvbiunbFJQEFEYGQDKY3472-94-19 18:46:00 Test Item Value Reference Range Interpretation Comments Creatinine Lvl (test code = Creatinine 0.9 0.5-1.4 Lvl) [facility] HospitalUopfgdiRQJFJGWIWLED5228-62-89 18:46:00 Test Item Value Reference Range Interpretation Comments Potassium Lvl (test code = Potassium 4.2 3.5-5.1 Lvl) [facility] HospitalCvtamvqGPKWODTVZKFT4806-76-87 18:46:00 Test Item Value Reference Range Interpretation Comments Sodium Lvl (test code = Sodium Lvl) 139 135-145 [facility] HospitalEthmbgvXBSNPQSLMFSH0658-50-27 18:46:00 Test Item Value Reference Range Interpretation Comments CO2 (test code = CO2) 24 24-32 [facility] HospitalGqmjpbqGTZJSJZBETMK5060-64-89 18:46:00 Test Item Value Reference Range Interpretation Comments BUN (test code = BUN) 16 7-22 [facility] HospitalJoqcyjsWJTJVCEXAXTQ2687-21-33 18:46:00 Test Item Value Reference Range Interpretation Comments Glucose Lvl (test code = Glucose Lvl) 141 70-99 [facility] HospitalWfgeewoLQSEYHNIPQXX6069-40-90 18:46:00 Test Item Value Reference Range Interpretation Comments Albumin Lvl (test code = Albumin Lvl) 3.6 3.5-5.0 [facility] HospitalHuxqklsERQOPMTPJELG7745-74-99 18:46:00 Test Item Value Reference Range Interpretation Comments Alk Phos (test code = Alk Phos) 65 39-136 [facility] HospitalWpdrhdhZKEPPFHNRPJU9558-60-91 18:46:00 Test Item Value Reference Range Interpretation Comments Bili Total (test code = Bili Total) 0.3 0.2-1.3 [facility] HospitalEymaeeqMLZACWWSQJHH5086-32-91 18:46:00 Test Item Value Reference Range Interpretation Comments ALT (test code = ALT) 100 See_Comment [Auto mated message] The system which ge nerated this result transmit elizabeth reference range : <=65. The reference range was not used to interpr et this result as margaret l/abnormal. [facility] HospitalJmtlaayGBUNOBOMVIPK5201-02-30 18:46:00 Test Item Value Reference Range Interpretation Comments AST (test code = AST) 53 See_Comment [Auto mated message] The system which ge nerated this result transmit elizabeth reference range : <=37. The reference range was not used to interpr et this result as margaret l/abnormal. [facility] HospitalUwdkamyCGMDKEOEFBFN3790-48-97 18:46:00 Test Item Value Reference Range Interpretation Comments Total Protein (test code = Total 6.9 6.4-8.4 Protein) [facility] [place]OevjkksXCHPUUZOAZ8611-49-29 18:46:00 Test Item Value Reference Range Interpretation Comments Eosinophils (test code = 4.2 See_Comment [A utomated message] The Eosinophils) system which ge nerated this result tra nsmitted reference range : <=4.0. The reference r mitra was not used to int erpret this result as normal/abnormal . [facility] [place]burgFxmpflbGXEWTZEORQ5752-10-50 18:46:00 Test Item Value Reference Range Interpretation Comments Segs (test code = Segs) 56.4 45.0-75.0 [facility] [place]burgHtmdrhhXHNJKJTZLL5956-33-08 18:46:00 Test Item Value Reference Range Interpretation Comments Monocytes (test code = Monocytes) 10.3 2.0-12.0 [facility] [place]burgJkwlglrLPPVWKWPQM1630-12-66 18:46:00 Test Item Value Reference Range Interpretation Comments Lymphocytes (test code = Lymphocytes) 28.0 20.0-40.0 [facility] [place]CupjjcdPBDSQQPNOK3401-03-12 18:46:00 Test Item Value Reference Range Interpretation Comments Monocytes # (test code 0.5 See_Comment [Aut omated message] The = Monocytes #) system which generated this result tra nsmitted reference range : <=0.8. The reference r mitra was not used to int erpret this result as normal/abnormal . [facility] [place]burgFyqjrstQXXGGTXRNY3686-17-73 18:46:00 Test Item Value Reference Range Interpretation Comments Basophils (test code = 1.1 See_Comment [Aut omated message] The Basophils) system which ge nerated this result tra nsmitted reference range : <=1.0. The reference r mitra was not used to int erpret this result as normal/abnormal . [facility] [place]SdinzzpNVNJRYOQTJ4821-98-72 18:46:00 Test Item Value Reference Range Interpretation Comments Lymphocytes # (test code = Lymphocytes 1.5 1.0-5.5 #) [facility] [place]OobafsjVXMUREMZME4536-19-27 18:46:00 Test Item Value Reference Range Interpretation Comments Segs-Bands # (test code = Segs-Bands #) 2.9 1.5-8.1 [facility] [place]burgZrjkavhTJUAJHOQON4211-23-39 18:46:00 Test Item Value Reference Range Interpretation Comments Eosinophils # (test code 0.2 See_Comment [A utomated message] The = Eosinophils #) system [facility] h generated this result tra nsmitted reference range : <=0.5. The reference r mitra was not used to int erpret this result as normal/abnormal . [facility] [place]burgJhywuxpTVOKDVVEYT3848-67-32 18:46:00 Test Item Value Reference Range Interpretation Comments Basophils # (test code 0.1 See_Comment [Aut omated message] The = Basophils #) system which generated this result tra nsmitted reference range : <=0.2. The reference r mitra was not used to int erpret this result as normal/abnormal . [facility] [place]burgOnnptzlCZVAXAYIMH4432-77-47 18:46:00 Test Item Value Reference Range Interpretation Comments PT (test code = PT) 11.2 s 12.0-14.7 [facility] [place]OquwqmwVYLTLCMBLK4533-04-74 18:46:00 Test Item Value Reference Range Interpretation Comments INR (test code = INR) 0.82 0.85-1.17 [facility] [place]burgUgbinhsJVJLTATULM6496-56-27 18:46:00 Test Item Value Reference Range Interpretation Comments PTT (test code = PTT) 28.6 s 22.9-35.8 [facility] [place]burgCsfszxqKDZZGGXTTX2950-69-16 18:46:00 Test Item Value Reference Range Interpretation Comments MPV (test code = MPV) 8.1 7.4-10.4 [facility] [place]PhqfnstBXDPKUEANL4975-65-96 18:46:00 Test Item Value Reference Range Interpretation Comments Platelet (test code = Platelet) 301 133-450 [facility] [place]burgAkajijsXIPLLBPXXM1707-29-23 18:46:00 Test Item Value Reference Range Interpretation Comments RDW (test code = RDW) 14.5 11.5-14.5 [facility] [place]burgAtimzfsACKHQZFNEY4122-91-82 18:46:00 Test Item Value Reference Range Interpretation Comments RBC (test code = RBC) 4.84 4.70-6.10 [facility] [place]burgZdiglzpWHKDMUXKES7358-64-98 18:46:00 Test Item Value Reference Range Interpretation Comments Hgb (test code = Hgb) 14.4 14.0-18.0 [facility] [place]burgEwlxinfWRQKOCQWWG3599-84-46 18:46:00 Test Item Value Reference Range Interpretation Comments WBC (test code = WBC) 5.2 3.7-10.4 [facility] [place]burgHfdgqdeYTGIEUUDYY4475-87-28 18:46:00 Test Item Value Reference Range Interpretation Comments MCH (test code = MCH) 29.8 pg 27.0-31.0 [facility] [place]burgUzjewjqJTNVESTSZE1066-16-56 18:46:00 Test Item Value Reference Range Interpretation Comments MCV (test code = MCV) 92.0 80.0-94.0 [facility] [place]inburgRlogvbyMNJJRNGJVK8854-85-68 18:46:00 Test Item Value Reference Range Interpretation Comments Hct (test code = Hct) 44.5 42.0-54.0 [facility] [place]burgBpqdqgqEIMWQOKUKB3824-22-62 18:46:00 Test Item Value Reference Range Interpretation Comments MCHC (test code = MCHC) 32.4 32.0-36.0 [facility]swbyvTJGHVPYHGY7142-15-64 18:46:00 Test Item Value Reference Range Interpretation Comments Elroy-Hep C Ab (test Negative *NA*(07/22/14 code = Elroy-Hep C 1:46 PM) Ab) [facility] AND [id number] 18:46:00 Test Item Value Reference Range Interpretation Comments UA Urobilinogen (test code = UA <=1.0 mg/dL 0.1-1.0 Urobilinogen) [facility] AND [id number] 18:46:00 Test Item Value Reference Range Interpretation Comments UA Sq Epi (test code = UA Sq Epi) None Seen [facility] AND [id number] 18:46:00 Test Item Value Reference Range Interpretation Comments UA Leuk Est (test Negative (07/22/14 1:46 code = UA Leuk Est) PM) [facility] AND [id number] 18:46:00 Test Item Value Reference Range Interpretation Comments UA Nitrite (test code Negative (07/22/14 1:46 = UA Nitrite) PM) [facility] AND [id number] 18:46:00 Test Item Value Reference Range Interpretation Comments UA Blood (test code = Negative (07/22/14 1:46 UA Blood) PM) [facility] AND [id number] 18:46:00 Test Item Value Reference Range Interpretation Comments UA Ketones (test code = UA Negative mg/dL Ketones) [facility] AND [id number] 18:46:00 Test Item Value Reference Range Interpretation Comments UA Bili (test code = Negative *NA*(07/22/14 UA Bili) 1:46 PM) [facility] AND [id number] 18:46:00 Test Item Value Reference Range Interpretation Comments UA Bacteria (test code = UA Occasional /HPF Bacteria) [facility] AND [id number] 18:46:00 Test Item Value Reference Range Interpretation Comments UA RBC (test code = no gt See_Comment [Automa elizabeth message] The UA RBC) system which ge nerated this result transmit elizabeth reference range : <=2. The reference range was not used to interpr et this result as margaret l/abnormal. [facility] AND [id number] 18:46:00 Test Item Value Reference Range Interpretation Comments UA WBC (test code = 1 See_Comment [Automa elizabeth message] The UA WBC) system which ge nerated this result transmit elizabeth reference range : <=5. The reference range was not used to interpr et this result as margaret l/abnormal. [facility] AND [id number] 18:46:00 Test Item Value Reference Range Interpretation Comments UA Glucose (test code = UA Glucose) 30 mg/dL [facility] AND [id number] 18:46:00 Test Item Value Reference Range Interpretation Comments UA Protein (test code = UA Negative mg/dL Protein) [facility] AND [id number] 18:46:00 Test Item Value Reference Range Interpretation Comments UA pH (test code = UA pH) 6.5 5.0-8.0 [facility] AND [id number] 18:46:00 Test Item Value Reference Range Interpretation Comments UA Turbidity (test code = Clear (07/22/14 1:46 UA Turbidity) PM) [facility] AND [id number] 18:46:00 Test Item Value Reference Range Interpretation Comments UA Spec Grav (test code = UA Spec Grav) 1.010 [facility] AND [id number] 18:46:00 Test Item Value Reference Range Interpretation Comments UA Color (test code = Light Yellow UA Color) *NA*(07/22/14 1:46 PM) [facility] [id number] 18:46:00 Test Item Value Reference Range Interpretation Comments Magnesium Lvl (test code = Magnesium 1.8 1.8-2.4 Lvl) [facility] HospitalWletdliUUSTGNIAKLVD4478-86-63 18:46:00 Test Item Value Reference Range Interpretation Comments AGAP (test code = AGAP) 13.2 10.0-20.0 [facility] HospitalAyqtkrbYDILADXOWYFK2633-49-95 18:46:00 Test Item Value Reference Range Interpretation Comments B/C Ratio (test code = B/C Ratio) 18 6-25 [facility] HospitalHbdjpjeKTXGZUHSAKUX0459-01-88 18:46:00 Test Item Value Reference Range Interpretation Comments A/G Ratio (test code = A/G Ratio) 1.1 0.7-1.6 [facility] HospitalJnywfuaJEFZDCYIRUEB7435-10-25 18:46:00 Test Item Value Reference Range Interpretation Comments Globulin (test code = Globulin) 3.3 2.0-4.0 [facility] HospitalFlsgtbfEFDDTSVPDUZP8164-73-88 18:46:00 Test Item Value Reference Range Interpretation Comments eGFR (test code = eGFR) 99 [facility] HospitalYykmfwgHVSSCERBEMXJ7055-88-54 18:46:00 Test Item Value Reference Range Interpretation Comments Calcium Lvl (test code = Calcium Lvl) 9.0 8.5-10.5 [facility] HospitalLbsesooUBGSGJLIBJIC6457-73-45 18:46:00 Test Item Value Reference Range Interpretation Comments Chloride Lvl (test code = Chloride Lvl) 106 95-109 [facility] HospitalRqlfyysVHAMCRDWBLSI8481-23-41 18:46:00 Test Item Value Reference Range Interpretation Comments Creatinine Lvl (test code = Creatinine 0.9 0.5-1.4 Lvl) [facility] HospitalDdyztabXBTDWSOOOKSO4740-47-03 18:46:00 Test Item Value Reference Range Interpretation Comments Potassium Lvl (test code = Potassium 4.2 3.5-5.1 Lvl) [facility] HospitalHqtohnlCYCKYGOOKATQ6821-23-17 18:46:00 Test Item Value Reference Range Interpretation Comments Sodium Lvl (test code = Sodium Lvl) 139 135-145 [facility] HospitalPdzyujnCWBWHIZWIIJE4435-20-10 18:46:00 Test Item Value Reference Range Interpretation Comments CO2 (test code = CO2) 24 24-32 [facility] HospitalEhlhiiwMTRVWTCEGVVZ7258-94-91 18:46:00 Test Item Value Reference Range Interpretation Comments BUN (test code = BUN) 16 7-22 [facility] HospitalUgegamzDEFKDNRDHKWJ2963-17-88 18:46:00 Test Item Value Reference Range Interpretation Comments Glucose Lvl (test code = Glucose Lvl) 141 70-99 [facility] HospitalLgqmlafGYTFWNYAEOWD7657-38-74 18:46:00 Test Item Value Reference Range Interpretation Comments Albumin Lvl (test code = Albumin Lvl) 3.6 3.5-5.0 [facility] HospitalSjdysxnRLXHIDZJTQCI8329-46-62 18:46:00 Test Item Value Reference Range Interpretation Comments Alk Phos (test code = Alk Phos) 65 39-136 [facility] HospitalBmttoyjBOCPLZKEXJOC2680-81-13 18:46:00 Test Item Value Reference Range Interpretation Comments Bili Total (test code = Bili Total) 0.3 0.2-1.3 [facility] HospitalOgtixhwBNGGLBUTLXAT8999-52-66 18:46:00 Test Item Value Reference Range Interpretation Comments ALT (test code = ALT) 100 See_Comment [Auto mated message] The system which ge nerated this result transmit elizabeth reference range : <=65. The reference range was not used to interpr et this result as margaret l/abnormal. [facility] HospitalAzwzztmGGXPZUXQTBJG1533-26-78 18:46:00 Test Item Value Reference Range Interpretation Comments AST (test code = AST) 53 See_Comment [Auto mated message] The system which ge nerated this result transmit elizabeth reference range : <=37. The reference range was not used to interpr et this result as margaret l/abnormal. [facility] HospitalPiluuekUTHJJEULTCBO3711-67-51 18:46:00 Test Item Value Reference Range Interpretation Comments Total Protein (test code = Total 6.9 6.4-8.4 Protein) [facility] [place]burgAbhotvmSUFZMYWQXO2248-88-15 18:46:00 Test Item Value Reference Range Interpretation Comments Eosinophils (test code = 4.2 See_Comment [A utomated message] The Eosinophils) system which ge nerated this result tra nsmitted reference range : <=4.0. The reference r mitra was not used to int erpret this result as normal/abnormal . [facility] [place]burgHgdunthEZVSTDSYZC2015-14-66 18:46:00 Test Item Value Reference Range Interpretation Comments Segs (test code = Segs) 56.4 45.0-75.0 [facility] [place]burgCbmkcsjDGYKRBZKHV0512-67-04 18:46:00 Test Item Value Reference Range Interpretation Comments Monocytes (test code = Monocytes) 10.3 2.0-12.0 [facility]burgJenzqqfTTZDHZLYOA0598-25-11 18:46:00 Test Item Value Reference Range Interpretation Comments Lymphocytes (test code = Lymphocytes) 28.0 20.0-40.0 [facility] [place]burgQmihuchPHKVJPIFJP9576-60-01 18:46:00 Test Item Value Reference Range Interpretation Comments Monocytes # (test code 0.5 See_Comment [Aut omated message] The = Monocytes #) system which generated this result tra nsmitted reference range : <=0.8. The reference r mitra was not used to int erpret this result as normal/abnormal . [facility]inburgSmeenkkWEBLPMHQDM7611-80-28 18:46:00 Test Item Value Reference Range Interpretation Comments Basophils (test code = 1.1 See_Comment [Aut omated message] The Basophils) system which ge nerated this result tra nsmitted reference range : <=1.0. The reference r mitra was not used to int erpret this result as normal/abnormal . [facility] [place]burgUkfxhfgOJQSZAFLHZ4885-01-38 18:46:00 Test Item Value Reference Range Interpretation Comments Lymphocytes # (test code = Lymphocytes 1.5 1.0-5.5 #) [facility]burgJzbvcqjENHNAQOKHR5597-90-46 18:46:00 Test Item Value Reference Range Interpretation Comments Segs-Bands # (test code = Segs-Bands #) 2.9 1.5-8.1 [facility]burgUyyvnbiMDWSOSYMFC3867-18-62 18:46:00 Test Item Value Reference Range Interpretation Comments Eosinophils # (test code 0.2 See_Comment [A utomated message] The = Eosinophils #) system whic h generated this result tra nsmitted reference range : <=0.5. The reference r mitra was not used to int erpret this result as normal/abnormal . [facility]burgCntbzjeZLLLVMLNOW6475-71-90 18:46:00 Test Item Value Reference Range Interpretation Comments Basophils # (test code 0.1 See_Comment [Aut omated message] The = Basophils #) system which generated this result tra nsmitted reference range : <=0.2. The reference r mitra was not used to int erpret this result as normal/abnormal . [facility]burgQknliujZJLLZUDIFU4059-27-74 18:46:00 Test Item Value Reference Range Interpretation Comments PT (test code = PT) 11.2 s 12.0-14.7 [facility]burgGnbznwoCHIHTPPKKR3168-98-50 18:46:00 Test Item Value Reference Range Interpretation Comments INR (test code = INR) 0.82 0.85-1.17 [facility] [place]burgOrstczvVFDPYPUDTJ7419-37-23 18:46:00 Test Item Value Reference Range Interpretation Comments PTT (test code = PTT) 28.6 s 22.9-35.8 [facility]inburgPgwmdeeHEZUHMULOF2680-66-12 18:46:00 Test Item Value Reference Range Interpretation Comments MPV (test code = MPV) 8.1 7.4-10.4 [facility]burgOhznefhGLMHDIHVXE8970-32-75 18:46:00 Test Item Value Reference Range Interpretation Comments Platelet (test code = Platelet) 301 133-450 [facility] EdinburgSayozypPHPNAFPFVV8274-00-96 18:46:00 Test Item Value Reference Range Interpretation Comments RDW (test code = RDW) 14.5 11.5-14.5 [facility]IqsnzsmHZGLSWXZQQ6912-27-95 18:46:00 Test Item Value Reference Range Interpretation Comments RBC (test code = RBC) 4.84 4.70-6.10 [facility]JjiocblXLGCEAEPIR7061-77-12 18:46:00 Test Item Value Reference Range Interpretation Comments Hgb (test code = Hgb) 14.4 14.0-18.0 [facility]rgCVQEGQIYWZ4735-66-47 18:46:00 Test Item Value Reference Range Interpretation Comments WBC (test code = WBC) 5.2 3.7-10.4 [facility]XehaylaBSIFAITSQP6494-79-11 18:46:00 Test Item Value Reference Range Interpretation Comments MCH (test code = MCH) 29.8 pg 27.0-31.0 [facility]burgYxruoijLAWETKNAMI0514-55-26 18:46:00 Test Item Value Reference Range Interpretation Comments MCV (test code = MCV) 92.0 80.0-94.0 [facility]burgEgsnokrGFDQONJVKY0305-01-53 18:46:00 Test Item Value Reference Range Interpretation Comments Hct (test code = Hct) 44.5 42.0-54.0 [facility]burgLnsvbbrNDXIWCQPEF2838-17-48 18:46:00 Test Item Value Reference Range Interpretation Comments MCHC (test code = MCHC) 32.4 32.0-36.0 [facility]WnutvjwSBHUCXJQEZ0371-44-98 18:46:00 Test Item Value Reference Range Interpretation Comments Elroy-Hep C Ab (test Negative *NA*(07/22/14 code = Elroy-Hep C 1:46 PM) Ab) [facility] AND [id number] 18:46:00 Test Item Value Reference Range Interpretation Comments UA Urobilinogen (test code = UA <=1.0 mg/dL 0.1-1.0 Urobilinogen) [facility] AND [id number] 18:46:00 Test Item Value Reference Range Interpretation Comments UA Sq Epi (test code = UA Sq Epi) None Seen [facility] AND [id number] 18:46:00 Test Item Value Reference Range Interpretation Comments UA Leuk Est (test Negative (07/22/14 1:46 code = UA Leuk Est) PM) [facility] AND [id number] 18:46:00 Test Item Value Reference Range Interpretation Comments UA Nitrite (test code Negative (07/22/14 1:46 = UA Nitrite) PM) [facility] AND [id number] 18:46:00 Test Item Value Reference Range Interpretation Comments UA Blood (test code = Negative (07/22/14 1:46 UA Blood) PM) [facility] AND [id number] 18:46:00 Test Item Value Reference Range Interpretation Comments UA Ketones (test code = UA Negative mg/dL Ketones) [facility] AND [id number] 18:46:00 Test Item Value Reference Range Interpretation Comments UA Bili (test code = Negative *NA*(07/22/14 UA Bili) 1:46 PM) [facility] AND [id number] 18:46:00 Test Item Value Reference Range Interpretation Comments UA Bacteria (test code = UA Occasional /HPF Bacteria) [facility] AND [id number] 18:46:00 Test Item Value Reference Range Interpretation Comments UA RBC (test code = no gt See_Comment [Automa elizabeth message] The UA RBC) system which ge nerated this result transmit elizabeth reference range : <=2. The reference range was not used to interpr et this result as margaret l/abnormal. [facility] AND [id number] 18:46:00 Test Item Value Reference Range Interpretation Comments UA WBC (test code = 1 See_Comment [Automa elizabeth message] The UA WBC) system which ge nerated this result transmit elizabeth reference range : <=5. The reference range was not used to interpr et this result as margaret l/abnormal. [facility] AND [id number] 18:46:00 Test Item Value Reference Range Interpretation Comments UA Glucose (test code = UA Glucose) 30 mg/dL [facility] AND [id number] 18:46:00 Test Item Value Reference Range Interpretation Comments UA Protein (test code = UA Negative mg/dL Protein) [facility] AND [id number] 18:46:00 Test Item Value Reference Range Interpretation Comments UA pH (test code = UA pH) 6.5 5.0-8.0 [facility] AND [id number] 18:46:00 Test Item Value Reference Range Interpretation Comments UA Turbidity (test code = Clear (07/22/14 1:46 UA Turbidity) PM) [facility] AND [id number] 18:46:00 Test Item Value Reference Range Interpretation Comments UA Spec Grav (test code = UA Spec Grav) 1.010 [facility] AND [id number] 18:46:00 Test Item Value Reference Range Interpretation Comments UA Color (test code = Light Yellow UA Color) *NA*(07/22/14 1:46 PM) [facility] [id number] 18:46:00 Test Item Value Reference Range Interpretation Comments Magnesium Lvl (test code = Magnesium 1.8 1.8-2.4 Lvl) [facility]htnvlQPJSJXAXEZFQ7894-63-05 18:46:00 Test Item Value Reference Range Interpretation Comments AGAP (test code = AGAP) 13.2 10.0-20.0 [facility] HospitalEpxlggnMAUJZYWQBXDT1610-08-19 18:46:00 Test Item Value Reference Range Interpretation Comments B/C Ratio (test code = B/C Ratio) 18 6-25 [facility] HospitalOzysjpiYGUQXPVROVDQ5402-24-60 18:46:00 Test Item Value Reference Range Interpretation Comments A/G Ratio (test code = A/G Ratio) 1.1 0.7-1.6 [facility] HospitalLgbaxmpYNPZAQDPVOFS2479-03-74 18:46:00 Test Item Value Reference Range Interpretation Comments Globulin (test code = Globulin) 3.3 2.0-4.0 [facility] HospitalSsgqrmgUHTGONQHHXDA3249-28-71 18:46:00 Test Item Value Reference Range Interpretation Comments eGFR (test code = eGFR) 99 [facility] HospitalZqhveawGZRMUWGFPSXH2726-09-10 18:46:00 Test Item Value Reference Range Interpretation Comments Calcium Lvl (test code = Calcium Lvl) 9.0 8.5-10.5 [facility] HospitalGolyhhsQDGXERVUBSGR1136-75-84 18:46:00 Test Item Value Reference Range Interpretation Comments Chloride Lvl (test code = Chloride Lvl) 106 95-109 [facility] HospitalFdfthpfVEWJRIDCZKFU7751-91-39 18:46:00 Test Item Value Reference Range Interpretation Comments Creatinine Lvl (test code = Creatinine 0.9 0.5-1.4 Lvl) [facility] HospitalFskisemUVHIIJNWTEVF7798-63-72 18:46:00 Test Item Value Reference Range Interpretation Comments Potassium Lvl (test code = Potassium 4.2 3.5-5.1 Lvl) [facility] HospitalUojlotnMZDJGEJGJBYD3537-63-22 18:46:00 Test Item Value Reference Range Interpretation Comments Sodium Lvl (test code = Sodium Lvl) 139 135-145 [facility] HospitalWclnhtzPYKLMLBGLUGD8711-60-18 18:46:00 Test Item Value Reference Range Interpretation Comments CO2 (test code = CO2) 24 24-32 [facility] HospitalQfyghpqCGHNTOLLRWEM2424-66-78 18:46:00 Test Item Value Reference Range Interpretation Comments BUN (test code = BUN) 16 7-22 [facility] HospitalVvseccoASYMOJIZMGBX5673-85-81 18:46:00 Test Item Value Reference Range Interpretation Comments Glucose Lvl (test code = Glucose Lvl) 141 70-99 [facility] HospitalSlrruxcBUUPQPCMKFID1139-28-79 18:46:00 Test Item Value Reference Range Interpretation Comments Albumin Lvl (test code = Albumin Lvl) 3.6 3.5-5.0 [facility] HospitalPvrkqhwJFNQKZGBBGRF9578-50-43 18:46:00 Test Item Value Reference Range Interpretation Comments Alk Phos (test code = Alk Phos) 65 39-136 [facility] HospitalOkmzabnGVWKRULDNIYE5223-92-69 18:46:00 Test Item Value Reference Range Interpretation Comments Bili Total (test code = Bili Total) 0.3 0.2-1.3 [facility] HospitalCtqfavbKAVBAHGUXXEX2320-49-40 18:46:00 Test Item Value Reference Range Interpretation Comments ALT (test code = ALT) 100 See_Comment [Auto mated message] The system which ge nerated this result transmit elizabeth reference range : <=65. The reference range was not used to interpr et this result as margaret l/abnormal. [facility] HospitalTucygufWWTVIOEOHVNT4508-03-98 18:46:00 Test Item Value Reference Range Interpretation Comments AST (test code = AST) 53 See_Comment [Auto mated message] The system which ge nerated this result transmit elizabeth reference range : <=37. The reference range was not used to interpr et this result as margaret l/abnormal. [facility] HospitalFvpucbhMTIRXPXULIYT3594-74-61 18:46:00 Test Item Value Reference Range Interpretation Comments Total Protein (test code = Total 6.9 6.4-8.4 Protein) [facility] HospitalPsxodnqBJFSOAQSOO5891-52-29 18:46:00 Test Item Value Reference Range Interpretation Comments Eosinophils (test code = 4.2 See_Comment [A utomated message] The Eosinophils) system which ge nerated this result tra nsmitted reference range : <=4.0. The reference r mitra was not used to int erpret this result as normal/abnormal . [facility]TgxhznxTKLFLMJBEC6456-18-19 18:46:00 Test Item Value Reference Range Interpretation Comments Segs (test code = Segs) 56.4 45.0-75.0 [facility]OjxdridKGLFUGKPCN9278-08-08 18:46:00 Test Item Value Reference Range Interpretation Comments Monocytes (test code = Monocytes) 10.3 2.0-12.0 [facility]burgErsjljkDCKXFJJFZZ8097-20-55 18:46:00 Test Item Value Reference Range Interpretation Comments Lymphocytes (test code = Lymphocytes) 28.0 20.0-40.0 [facility]burgTuwokdwIITBZRJXRU4029-25-47 18:46:00 Test Item Value Reference Range Interpretation Comments Monocytes # (test code 0.5 See_Comment [Aut omated message] The = Monocytes #) system which generated this result tra nsmitted reference range : <=0.8. The reference r mitra was not used to int erpret this result as normal/abnormal . [facility]burgVjhrlwcJJPROURYEF1848-79-23 18:46:00 Test Item Value Reference Range Interpretation Comments Basophils (test code = 1.1 See_Comment [Aut omated message] The Basophils) system which ge nerated this result tra nsmitted reference range : <=1.0. The reference r mitra was not used to int erpret this result as normal/abnormal . [facility]burgAyfxvcwYCUPJTSGKF3368-67-11 18:46:00 Test Item Value Reference Range Interpretation Comments Lymphocytes # (test code = Lymphocytes 1.5 1.0-5.5 #) [facility]burgBskzyjtECJAFVHDOF6043-30-87 18:46:00 Test Item Value Reference Range Interpretation Comments Segs-Bands # (test code = Segs-Bands #) 2.9 1.5-8.1 [facility]XfsxwzySVTYLVAHBC4815-96-52 18:46:00 Test Item Value Reference Range Interpretation Comments Eosinophils # (test code 0.2 See_Comment [A utomated message] The = Eosinophils #) system whic h generated this result tra nsmitted reference range : <=0.5. The reference r mitra was not used to int erpret this result as normal/abnormal . [facility]burgXoexhywWDGCDUGBCY6732-84-47 18:46:00 Test Item Value Reference Range Interpretation Comments Basophils # (test code 0.1 See_Comment [Aut omated message] The = Basophils #) system which generated this result tra nsmitted reference range : <=0.2. The reference r mitra was not used to int erpret this result as normal/abnormal . [facility]burgWlbuwucLVKUBPBLWD2402-81-23 18:46:00 Test Item Value Reference Range Interpretation Comments PT (test code = PT) 11.2 s 12.0-14.7 [facility]burgBgdnuxyCUFYXQGIIC5959-27-52 18:46:00 Test Item Value Reference Range Interpretation Comments INR (test code = INR) 0.82 0.85-1.17 [facility]IqqstgnTKDOQVAWRU1115-36-00 18:46:00 Test Item Value Reference Range Interpretation Comments PTT (test code = PTT) 28.6 s 22.9-35.8 [facility]burgLqfthcwQCOWJRMYRZ4196-73-89 18:46:00 Test Item Value Reference Range Interpretation Comments MPV (test code = MPV) 8.1 7.4-10.4 [facility]burgRrfoposLPJMRUYGAO1124-07-31 18:46:00 Test Item Value Reference Range Interpretation Comments Platelet (test code = Platelet) 301 133-450 [facility]burgEqetxqgDYROKACNML8462-96-30 18:46:00 Test Item Value Reference Range Interpretation Comments RDW (test code = RDW) 14.5 11.5-14.5 [facility]XprlomwVTKWZLXKIP1308-49-44 18:46:00 Test Item Value Reference Range Interpretation Comments RBC (test code = RBC) 4.84 4.70-6.10 [facility]burgMzxksbeUJVZCYOLHA6440-27-62 18:46:00 Test Item Value Reference Range Interpretation Comments Hgb (test code = Hgb) 14.4 14.0-18.0 [facility]burgQizzzfiGSNLFSCEIL7059-84-33 18:46:00 Test Item Value Reference Range Interpretation Comments WBC (test code = WBC) 5.2 3.7-10.4 [facility]burgUjkghsmXDIMOJZRBT9033-37-56 18:46:00 Test Item Value Reference Range Interpretation Comments MCH (test code = MCH) 29.8 pg 27.0-31.0 [facility]burgHnotyemAGNMFSIACQ2587-51-07 18:46:00 Test Item Value Reference Range Interpretation Comments MCV (test code = MCV) 92.0 80.0-94.0 [place] [id number] 18:46:00 Test Item Value Reference Range Interpretation Comments Hct (test code = Hct) 44.5 42.0-54.0 [facility] NwjbgwxYKVQYOWGSL7900-36-53 18:46:00 Test Item Value Reference Range Interpretation Comments MCHC (test code = MCHC) 32.4 32.0-36.0 [facility]DposjysZLPRSLJFDG7345-02-52 18:46:00 Test Item Value Reference Range Interpretation Comments Elroy-Hep C Ab (test Negative *NA*(07/22/14 code = Elroy-Hep C 1:46 PM) Ab) [facility] AND [id number] 18:46:00 Test Item Value Reference Range Interpretation Comments UA Urobilinogen (test code = UA <=1.0 mg/dL 0.1-1.0 Urobilinogen) [facility] AND [id number] 18:46:00 Test Item Value Reference Range Interpretation Comments UA Sq Epi (test code = UA Sq Epi) None Seen [facility] AND [id number] 18:46:00 Test Item Value Reference Range Interpretation Comments UA Leuk Est (test Negative (07/22/14 1:46 code = UA Leuk Est) PM) [facility] AND [id number] 18:46:00 Test Item Value Reference Range Interpretation Comments UA Nitrite (test code Negative (07/22/14 1:46 = UA Nitrite) PM) [facility] AND [id number] 18:46:00 Test Item Value Reference Range Interpretation Comments UA Blood (test code = Negative (07/22/14 1:46 UA Blood) PM) [facility] AND [id number] 18:46:00 Test Item Value Reference Range Interpretation Comments UA Ketones (test code = UA Negative mg/dL Ketones) [facility] [id number] 18:46:00 Test Item Value Reference Range Interpretation Comments UA Bili (test code = Negative *NA*(07/22/14 UA Bili) 1:46 PM) [facility] AND [id number] 18:46:00 Test Item Value Reference Range Interpretation Comments UA Bacteria (test code = UA Occasional /HPF Bacteria) [facility] AND [id number] 18:46:00 Test Item Value Reference Range Interpretation Comments UA RBC (test code = no gt See_Comment [Automa elizabeth message] The UA RBC) system which ge nerated this result transmit elizabeth reference range : <=2. The reference range was not used to interpr et this result as margaret l/abnormal. [facility] [id number] 18:46:00 Test Item Value Reference Range Interpretation Comments UA WBC (test code = 1 See_Comment [Automa elizabeth message] The UA WBC) system which ge nerated this result transmit elizabeth reference range : <=5. The reference range was not used to interpr et this result as margaret l/abnormal. [facility] [id number] 18:46:00 Test Item Value Reference Range Interpretation Comments UA Glucose (test code = UA Glucose) 30 mg/dL [facility] [id number] 18:46:00 Test Item Value Reference Range Interpretation Comments UA Protein (test code = UA Negative mg/dL Protein) [facility] [id number] 18:46:00 Test Item Value Reference Range Interpretation Comments UA pH (test code = UA pH) 6.5 5.0-8.0 [facility] [id number] 18:46:00 Test Item Value Reference Range Interpretation Comments UA Turbidity (test code = Clear (07/22/14 1:46 UA Turbidity) PM) [facility] [id number] 18:46:00 Test Item Value Reference Range Interpretation Comments UA Spec Grav (test code = UA Spec Grav) 1.010 [facility] [id number] 18:46:00 Test Item Value Reference Range Interpretation Comments UA Color (test code = Light Yellow UA Color) *NA*(07/22/14 1:46 PM) [facility] [id number] 18:46:00 Test Item Value Reference Range Interpretation Comments Magnesium Lvl (test code = Magnesium 1.8 1.8-2.4 Lvl) [facility] SliprsaJFMPHCCXSHMB5696-77-64 18:46:00 Test Item Value Reference Range Interpretation Comments AGAP (test code = AGAP) 13.2 10.0-20.0 [facility] CoqahegGETPZYGKTHTX5660-21-36 18:46:00 Test Item Value Reference Range Interpretation Comments B/C Ratio (test code = B/C Ratio) 18 6-25 [facility] HospitalZhduuptOJBCNQKYIPKC9089-68-03 18:46:00 Test Item Value Reference Range Interpretation Comments A/G Ratio (test code = A/G Ratio) 1.1 0.7-1.6 [facility] HospitalKqbvvwaKOSZBYPPAVMQ5852-22-58 18:46:00 Test Item Value Reference Range Interpretation Comments Globulin (test code = Globulin) 3.3 2.0-4.0 [facility] HospitalDvbihjmPWXZWFQURNMD0381-50-50 18:46:00 Test Item Value Reference Range Interpretation Comments eGFR (test code = eGFR) 99 [facility] HospitalSzsyxcqBBRZSSYJKFUY1476-76-81 18:46:00 Test Item Value Reference Range Interpretation Comments Calcium Lvl (test code = Calcium Lvl) 9.0 8.5-10.5 [facility] HospitalRcmmmqpAEIYBIQDHATZ3119-40-18 18:46:00 Test Item Value Reference Range Interpretation Comments Chloride Lvl (test code = Chloride Lvl) 106 95-109 [facility] HospitalKiiqmoqMPYLGLGLSNMD8563-12-98 18:46:00 Test Item Value Reference Range Interpretation Comments Creatinine Lvl (test code = Creatinine 0.9 0.5-1.4 Lvl) [facility] HospitalIijwvlpOGLRNLTUGSUD3379-63-66 18:46:00 Test Item Value Reference Range Interpretation Comments Potassium Lvl (test code = Potassium 4.2 3.5-5.1 Lvl) [facility] HospitalVcvfnaxONXJLBVMEYHU2751-53-95 18:46:00 Test Item Value Reference Range Interpretation Comments Sodium Lvl (test code = Sodium Lvl) 139 135-145 [facility] HospitalLhzgkceXWGWLGCHIGLE6877-40-21 18:46:00 Test Item Value Reference Range Interpretation Comments CO2 (test code = CO2) 24 24-32 [facility] HospitalRqnenreEVHNPJBSMFED2486-15-98 18:46:00 Test Item Value Reference Range Interpretation Comments BUN (test code = BUN) 16 7-22 [facility] HospitalWbysjqsKZFXXQELCKQT8358-17-73 18:46:00 Test Item Value Reference Range Interpretation Comments Glucose Lvl (test code = Glucose Lvl) 141 70-99 [facility] HospitalXuugeahCZPIGQIWETVD7586-85-87 18:46:00 Test Item Value Reference Range Interpretation Comments Albumin Lvl (test code = Albumin Lvl) 3.6 3.5-5.0 [facility] HospitalOnxlzccXXCRWNDDWPDK3297-62-07 18:46:00 Test Item Value Reference Range Interpretation Comments Alk Phos (test code = Alk Phos) 65 39-136 [facility] HospitalZopfbumHOYYXUFVLYFO3076-09-88 18:46:00 Test Item Value Reference Range Interpretation Comments Bili Total (test code = Bili Total) 0.3 0.2-1.3 [facility] HospitalKcapowkEFEBEPABAFPL6479-36-92 18:46:00 Test Item Value Reference Range Interpretation Comments ALT (test code = ALT) 100 See_Comment [Auto mated message] The system which ge nerated this result transmit elizaebth reference range : <=65. The reference range was not used to interpr et this result as margaret l/abnormal. [facility] HospitalKsuyvnxUJRMHNBOHAHL2888-30-54 18:46:00 Test Item Value Reference Range Interpretation Comments AST (test code = AST) 53 See_Comment [Auto mated message] The system which ge nerated this result transmit elizabeth reference range : <=37. The reference range was not used to interpr et this result as margaret l/abnormal. [facility] HospitalXnlwbotFIGYAILXLXCC0275-45-65 18:46:00 Test Item Value Reference Range Interpretation Comments Total Protein (test code = Total 6.9 6.4-8.4 Protein) [facility]MwxdhlqNXCSFSEAMJ9057-91-05 18:46:00 Test Item Value Reference Range Interpretation Comments Eosinophils (test code = 4.2 See_Comment [A utomated message] The Eosinophils) system which ge nerated this result tra nsmitted reference range : <=4.0. The reference r mitra was not used to int erpret this result as normal/abnormal . [facility]burgQkxlxtxMOZXOWSCNN5164-20-04 18:46:00 Test Item Value Reference Range Interpretation Comments Segs (test code = Segs) 56.4 45.0-75.0 [facility]burgHtkwtxsJSWCEJAZIA7010-76-21 18:46:00 Test Item Value Reference Range Interpretation Comments Monocytes (test code = Monocytes) 10.3 2.0-12.0 [facility]burgOrbajsdTWYYWKQAUA8575-24-21 18:46:00 Test Item Value Reference Range Interpretation Comments Lymphocytes (test code = Lymphocytes) 28.0 20.0-40.0 [facility]burgQxbpotoCYNUAFUWEI9550-00-73 18:46:00 Test Item Value Reference Range Interpretation Comments Monocytes # (test code 0.5 See_Comment [Aut omated message] The = Monocytes #) system which generated this result tra nsmitted reference range : <=0.8. The reference r mitra was not used to int erpret this result as normal/abnormal . [facility]burgImzylvdBONQJFUFOU3029-92-26 18:46:00 Test Item Value Reference Range Interpretation Comments Basophils (test code = 1.1 See_Comment [Aut omated message] The Basophils) system which ge nerated this result tra nsmitted reference range : <=1.0. The reference r mitra was not used to int erpret this result as normal/abnormal . [facility]burgVzvqrzbIWBUDAEOGN8823-90-48 18:46:00 Test Item Value Reference Range Interpretation Comments Lymphocytes # (test code = Lymphocytes 1.5 1.0-5.5 #) [facility]burgMhtjnvwPJMESAELSQ0135-59-04 18:46:00 Test Item Value Reference Range Interpretation Comments Segs-Bands # (test code = Segs-Bands #) 2.9 1.5-8.1 [facility]burgFxkshetYDATZGIIHS2073-46-00 18:46:00 Test Item Value Reference Range Interpretation Comments Eosinophils # (test code 0.2 See_Comment [A utomated message] The = Eosinophils #) system whic h generated this result tra nsmitted reference range : <=0.5. The reference r mitra was not used to int erpret this result as normal/abnormal . [facility]burgCtkofffWKYRLOFEEW3310-12-69 18:46:00 Test Item Value Reference Range Interpretation Comments Basophils # (test code 0.1 See_Comment [Aut omated message] The = Basophils #) system which generated this result tra nsmitted reference range : <=0.2. The reference r mitra was not used to int erpret this result as normal/abnormal . [facility]burgQpwpnouABUQACYGTI4005-90-19 18:46:00 Test Item Value Reference Range Interpretation Comments PT (test code = PT) 11.2 s 12.0-14.7 [facility]burgYcziupmTCZUUMKTIK9664-67-81 18:46:00 Test Item Value Reference Range Interpretation Comments INR (test code = INR) 0.82 0.85-1.17 [facility]burgIqkmazsBCECGXZPME4301-06-16 18:46:00 Test Item Value Reference Range Interpretation Comments PTT (test code = PTT) 28.6 s 22.9-35.8 [facility] HospitalYyalflfVRLMLCLGBV6620-28-41 18:46:00 Test Item Value Reference Range Interpretation Comments MPV (test code = MPV) 8.1 7.4-10.4 [facility] HospitalViwuucaKVNHTJWWTF4603-96-04 18:46:00 Test Item Value Reference Range Interpretation Comments Platelet (test code = Platelet) 301 133-450 [facility] HospitalTxqeqhkJDEJLQATLI8787-48-88 18:46:00 Test Item Value Reference Range Interpretation Comments RDW (test code = RDW) 14.5 11.5-14.5 [facility] HospitalTcdgyksEYHZTFQLKO4636-63-27 18:46:00 Test Item Value Reference Range Interpretation Comments RBC (test code = RBC) 4.84 4.70-6.10 [facility] HospitalExhghceNLWORUAJXB2546-92-23 18:46:00 Test Item Value Reference Range Interpretation Comments Hgb (test code = Hgb) 14.4 14.0-18.0 [facility] HospitalZupixrtVJPZTCUMHE1519-30-46 18:46:00 Test Item Value Reference Range Interpretation Comments WBC (test code = WBC) 5.2 3.7-10.4 [facility] HospitalQlbjptqRFEQGLTYWB4242-64-72 18:46:00 Test Item Value Reference Range Interpretation Comments MCH (test code = MCH) 29.8 pg 27.0-31.0 [facility]iohwsLQCTXPPTTE1769-07-25 18:46:00 Test Item Value Reference Range Interpretation Comments MCV (test code = MCV) 92.0 80.0-94.0 [facility] HospitalEdiqbhaYBZRKEIMUP6555-14-24 18:46:00 Test Item Value Reference Range Interpretation Comments Hct (test code = Hct) 44.5 42.0-54.0 [facility] HospitalCtszwbhQZKSAEOMZU1427-94-29 18:46:00 Test Item Value Reference Range Interpretation Comments MCHC (test code = MCHC) 32.4 32.0-36.0 [facility]buYHABWXWUSP7135-83-19 18:46:00 Test Item Value Reference Range Interpretation Comments Elroy-Hep C Ab (test Negative *NA*(07/22/14 code = Elroy-Hep C 1:46 PM) Ab) [facility] AND [id number] 18:46:00 Test Item Value Reference Range Interpretation Comments UA Urobilinogen (test code = UA <=1.0 mg/dL 0.1-1.0 Urobilinogen) [facility] AND [id number] 18:46:00 Test Item Value Reference Range Interpretation Comments UA Sq Epi (test code = UA Sq Epi) None Seen [facility] AND [id number] 18:46:00 Test Item Value Reference Range Interpretation Comments UA Leuk Est (test Negative (07/22/14 1:46 code = UA Leuk Est) PM) [facility] AND [id number] 18:46:00 Test Item Value Reference Range Interpretation Comments UA Nitrite (test code Negative (07/22/14 1:46 = UA Nitrite) PM) [facility] AND [id number] 18:46:00 Test Item Value Reference Range Interpretation Comments UA Blood (test code = Negative (07/22/14 1:46 UA Blood) PM) [facility] AND [id number] 18:46:00 Test Item Value Reference Range Interpretation Comments UA Ketones (test code = UA Negative mg/dL Ketones) [facility] AND [id number] 18:46:00 Test Item Value Reference Range Interpretation Comments UA Bili (test code = Negative *NA*(07/22/14 UA Bili) 1:46 PM) [facility] AND [id number] 18:46:00 Test Item Value Reference Range Interpretation Comments UA Bacteria (test code = UA Occasional /HPF Bacteria) [facility] AND [id number] 18:46:00 Test Item Value Reference Range Interpretation Comments UA RBC (test code = no gt See_Comment [Automa elizabeth message] The UA RBC) system which ge nerated this result transmit elizabeth reference range : <=2. The reference range was not used to interpr et this result as margaret l/abnormal. [facility] AND [id number] 18:46:00 Test Item Value Reference Range Interpretation Comments UA WBC (test code = 1 See_Comment [Automa elizabeth message] The UA WBC) system which ge nerated this result transmit elizabeth reference range : <=5. The reference range was not used to interpr et this result as margaret l/abnormal. [facility] AND [id number] 18:46:00 Test Item Value Reference Range Interpretation Comments UA Glucose (test code = UA Glucose) 30 mg/dL [facility] AND [id number] 18:46:00 Test Item Value Reference Range Interpretation Comments UA Protein (test code = UA Negative mg/dL Protein) [facility] AND [id number] 18:46:00 Test Item Value Reference Range Interpretation Comments UA pH (test code = UA pH) 6.5 5.0-8.0 [facility] AND [id number] 18:46:00 Test Item Value Reference Range Interpretation Comments UA Turbidity (test code = Clear (07/22/14 1:46 UA Turbidity) PM) [facility] AND [id number] 18:46:00 Test Item Value Reference Range Interpretation Comments UA Spec Grav (test code = UA Spec Grav) 1.010 [facility] AND [id number] 18:46:00 Test Item Value Reference Range Interpretation Comments UA Color (test code = Light Yellow UA Color) *NA*(07/22/14 1:46 PM) [facility] [id number] 18:46:00 Test Item Value Reference Range Interpretation Comments Magnesium Lvl (test code = Magnesium 1.8 1.8-2.4 Lvl) [facility]YicgdbqECGKEFZZAMMQ1918-82-84 18:46:00 Test Item Value Reference Range Interpretation Comments AGAP (test code = AGAP) 13.2 10.0-20.0 [facility] HospitalBvyndwjRTOITCDSCGVL7800-31-00 18:46:00 Test Item Value Reference Range Interpretation Comments B/C Ratio (test code = B/C Ratio) 18 6-25 [facility] HospitalUawqvgsQCSXQHNIEBPP3243-06-14 18:46:00 Test Item Value Reference Range Interpretation Comments A/G Ratio (test code = A/G Ratio) 1.1 0.7-1.6 [facility] HospitalFtwatibPSACJOWHSAVB8953-54-61 18:46:00 Test Item Value Reference Range Interpretation Comments Globulin (test code = Globulin) 3.3 2.0-4.0 [facility] HospitalBbkfmfpYYADZTOXBCCG7675-37-42 18:46:00 Test Item Value Reference Range Interpretation Comments eGFR (test code = eGFR) 99 [facility] HospitalDcifwnfJWDPWDDCXPOW1400-08-81 18:46:00 Test Item Value Reference Range Interpretation Comments Calcium Lvl (test code = Calcium Lvl) 9.0 8.5-10.5 [facility] HospitalLtnxnceWSHVUHUBGJNS2250-55-73 18:46:00 Test Item Value Reference Range Interpretation Comments Chloride Lvl (test code = Chloride Lvl) 106 95-109 [facility] HospitalElizizfFZMWIGDVAYGT5890-08-27 18:46:00 Test Item Value Reference Range Interpretation Comments Creatinine Lvl (test code = Creatinine 0.9 0.5-1.4 Lvl) [facility] HospitalTteaqmnFWODRQHUDTPO5289-25-17 18:46:00 Test Item Value Reference Range Interpretation Comments Potassium Lvl (test code = Potassium 4.2 3.5-5.1 Lvl) [facility] HospitalEkfjfkgRTUTIZDANVXF2553-84-27 18:46:00 Test Item Value Reference Range Interpretation Comments Sodium Lvl (test code = Sodium Lvl) 139 135-145 [facility] HospitalVedrzxbRFPUYUIHERAR0212-56-37 18:46:00 Test Item Value Reference Range Interpretation Comments CO2 (test code = CO2) 24 24-32 [facility] HospitalZzebcagSIONEBAKQDKO3181-88-44 18:46:00 Test Item Value Reference Range Interpretation Comments BUN (test code = BUN) 16 7-22 [facility] HospitalVlvmmmeYVSMSIWVZQDF8359-97-56 18:46:00 Test Item Value Reference Range Interpretation Comments Glucose Lvl (test code = Glucose Lvl) 141 70-99 [facility] HospitalNmeptinAIUMVZLDPPFR0210-98-48 18:46:00 Test Item Value Reference Range Interpretation Comments Albumin Lvl (test code = Albumin Lvl) 3.6 3.5-5.0 [facility] HospitalUztbhlySHJVAPVYYLQG2606-09-21 18:46:00 Test Item Value Reference Range Interpretation Comments Alk Phos (test code = Alk Phos) 65 39-136 [facility] HospitalMcaprrrEYCUZJXACHPL1584-62-69 18:46:00 Test Item Value Reference Range Interpretation Comments Bili Total (test code = Bili Total) 0.3 0.2-1.3 [facility] HospitalZwkswwmQNPTVYDDKXKI4656-11-75 18:46:00 Test Item Value Reference Range Interpretation Comments ALT (test code = ALT) 100 See_Comment [Auto mated message] The system which ge nerated this result transmit elizabeth reference range : <=65. The reference range was not used to interpr et this result as margaret l/abnormal. [facility] HospitalUjctjkbODWCFDHKGYMG8301-33-92 18:46:00 Test Item Value Reference Range Interpretation Comments AST (test code = AST) 53 See_Comment [Auto mated message] The system which ge nerated this result transmit elizabeth reference range : <=37. The reference range was not used to interpr et this result as margaret l/abnormal. [facility] HospitalHhhaefuZOCDEWCOJRSL3270-02-85 18:46:00 Test Item Value Reference Range Interpretation Comments Total Protein (test code = Total 6.9 6.4-8.4 Protein) [facility]ScpfurjWJJWECROKF2763-10-62 18:46:00 Test Item Value Reference Range Interpretation Comments Eosinophils (test code = 4.2 See_Comment [A utomated message] The Eosinophils) system which ge nerated this result tra nsmitted reference range : <=4.0. The reference r mitra was not used to int erpret this result as normal/abnormal . [facility]burgWabnswpYABGQQLBVT0716-11-31 18:46:00 Test Item Value Reference Range Interpretation Comments Segs (test code = Segs) 56.4 45.0-75.0 [facility]burgBzfpdfuLSQIFBUVJW3365-33-45 18:46:00 Test Item Value Reference Range Interpretation Comments Monocytes (test code = Monocytes) 10.3 2.0-12.0 [facility]burgJkogcfuTBBQOHPKZV3512-05-79 18:46:00 Test Item Value Reference Range Interpretation Comments Lymphocytes (test code = Lymphocytes) 28.0 20.0-40.0 [facility]burgOyrymrdHAHGXGHKID2173-51-94 18:46:00 Test Item Value Reference Range Interpretation Comments Monocytes # (test code 0.5 See_Comment [Aut omated message] The = Monocytes #) system which generated this result tra nsmitted reference range : <=0.8. The reference r mitra was not used to int erpret this result as normal/abnormal . [facility]burgQwluztcLNISSNTGXS9593-25-25 18:46:00 Test Item Value Reference Range Interpretation Comments Basophils (test code = 1.1 See_Comment [Aut omated message] The Basophils) system which ge nerated this result tra nsmitted reference range : <=1.0. The reference r mitra was not used to int erpret this result as normal/abnormal . [facility]burgXngllbcFAGWJIWAIG0321-31-18 18:46:00 Test Item Value Reference Range Interpretation Comments Lymphocytes # (test code = Lymphocytes 1.5 1.0-5.5 #) [facility]burgYkhlsvyWZILXMPPIQ0131-36-28 18:46:00 Test Item Value Reference Range Interpretation Comments Segs-Bands # (test code = Segs-Bands #) 2.9 1.5-8.1 [facility]burgGkglearQFOKPYOPTJ2272-06-57 18:46:00 Test Item Value Reference Range Interpretation Comments Eosinophils # (test code 0.2 See_Comment [A utomated message] The = Eosinophils #) system whic h generated this result tra nsmitted reference range : <=0.5. The reference r mitra was not used to int erpret this result as normal/abnormal . [facility]burgQcfqkdsCEMBUIMIYQ6487-49-80 18:46:00 Test Item Value Reference Range Interpretation Comments Basophils # (test code 0.1 See_Comment [Aut omated message] The = Basophils #) system which generated this result tra nsmitted reference range : <=0.2. The reference r mitra was not used to int erpret this result as normal/abnormal . [facility]burgYfjezfsBPKDCCKRRL2161-06-37 18:46:00 Test Item Value Reference Range Interpretation Comments PT (test code = PT) 11.2 s 12.0-14.7 [facility]burgOotexbgOBISYBQBTR4282-55-03 18:46:00 Test Item Value Reference Range Interpretation Comments INR (test code = INR) 0.82 0.85-1.17 [facility]burgApcwbsaTSIRYSDHYY3190-27-55 18:46:00 Test Item Value Reference Range Interpretation Comments PTT (test code = PTT) 28.6 s 22.9-35.8 [facility]burgHbzmaxbJZCVHHCLAV4993-89-46 18:46:00 Test Item Value Reference Range Interpretation Comments MPV (test code = MPV) 8.1 7.4-10.4 [facility]burgEtnavveZWSKPCXWEB1902-25-66 18:46:00 Test Item Value Reference Range Interpretation Comments Platelet (test code = Platelet) 301 133-450 [facility]burgNqmocvmKVACSNJGZK6676-56-08 18:46:00 Test Item Value Reference Range Interpretation Comments RDW (test code = RDW) 14.5 11.5-14.5 [facility]wjdmvxCGRVNSPNHU9052-33-58 18:46:00 Test Item Value Reference Range Interpretation Comments RBC (test code = RBC) 4.84 4.70-6.10 [facility]GueqdutGDJTALFHPM1143-12-65 18:46:00 Test Item Value Reference Range Interpretation Comments Hgb (test code = Hgb) 14.4 14.0-18.0 [facility] HospitalPsmatiePOEHWFSNZK7536-72-53 18:46:00 Test Item Value Reference Range Interpretation Comments WBC (test code = WBC) 5.2 3.7-10.4 [facility] HospitalWnotbffVHRRKRSJUQ6979-95-09 18:46:00 Test Item Value Reference Range Interpretation Comments MCH (test code = MCH) 29.8 pg 27.0-31.0 [facility]burgKrdoquyNNAKETESJM5197-46-12 18:46:00 Test Item Value Reference Range Interpretation Comments MCV (test code = MCV) 92.0 80.0-94.0 [facility] HospitalMxxazncSARQGGLJJC2231-46-87 18:46:00 Test Item Value Reference Range Interpretation Comments Hct (test code = Hct) 44.5 42.0-54.0 [facility]HezvivoKSLFZBFCPM0948-59-89 18:46:00 Test Item Value Reference Range Interpretation Comments MCHC (test code = MCHC) 32.4 32.0-36.0 [facility] HendersonCkbicmtNUBIDEABTK0715-25-38 18:46:00 Test Item Value Reference Range Interpretation Comments Elroy-Hep C Ab (test Negative *NA*(07/22/14 code = Elroy-Hep C 1:46 PM) Ab) [facility] AND [id number] 18:46:00 Test Item Value Reference Range Interpretation Comments UA Urobilinogen (test code = UA <=1.0 mg/dL 0.1-1.0 Urobilinogen) [facility] [id number] 18:46:00 Test Item Value Reference Range Interpretation Comments UA Sq Epi (test code = UA Sq Epi) None Seen [facility] AND [id number] 18:46:00 Test Item Value Reference Range Interpretation Comments UA Leuk Est (test Negative (07/22/14 1:46 code = UA Leuk Est) PM) [facility] [id number] 18:46:00 Test Item Value Reference Range Interpretation Comments UA Nitrite (test code Negative (07/22/14 1:46 = UA Nitrite) PM) [facility] AND [id number] 18:46:00 Test Item Value Reference Range Interpretation Comments UA Blood (test code = Negative (07/22/14 1:46 UA Blood) PM) [facility] AND [id number] 18:46:00 Test Item Value Reference Range Interpretation Comments UA Ketones (test code = UA Negative mg/dL Ketones) [facility] AND [id number] 18:46:00 Test Item Value Reference Range Interpretation Comments UA Bili (test code = Negative *NA*(07/22/14 UA Bili) 1:46 PM) [facility] AND [id number] 18:46:00 Test Item Value Reference Range Interpretation Comments UA Bacteria (test code = UA Occasional /HPF Bacteria) [facility] AND [id number] 18:46:00 Test Item Value Reference Range Interpretation Comments UA RBC (test code = no gt See_Comment [Automa elizabeth message] The UA RBC) system which ge nerated this result transmit elizabeth reference range : <=2. The reference range was not used to interpr et this result as margaret l/abnormal. [facility] AND [id number] 18:46:00 Test Item Value Reference Range Interpretation Comments UA WBC (test code = 1 See_Comment [Automa elizabeth message] The UA WBC) system which ge nerated this result transmit elizabeth reference range : <=5. The reference range was not used to interpr et this result as margaret l/abnormal. [facility] AND [id number] 18:46:00 Test Item Value Reference Range Interpretation Comments UA Glucose (test code = UA Glucose) 30 mg/dL [facility] AND [id number] 18:46:00 Test Item Value Reference Range Interpretation Comments UA Protein (test code = UA Negative mg/dL Protein) [facility] AND [id number] 18:46:00 Test Item Value Reference Range Interpretation Comments UA pH (test code = UA pH) 6.5 5.0-8.0 [facility] AND [id number] 18:46:00 Test Item Value Reference Range Interpretation Comments UA Turbidity (test code = Clear (07/22/14 1:46 UA Turbidity) PM) [facility] AND [id number] 18:46:00 Test Item Value Reference Range Interpretation Comments UA Spec Grav (test code = UA Spec Grav) 1.010 [facility] AND [id number] 18:46:00 Test Item Value Reference Range Interpretation Comments UA Color (test code = Light Yellow UA Color) *NA*(07/22/14 1:46 PM) [facility]annCHEM [id number] 18:46:00 Test Item Value Reference Range Interpretation Comments Magnesium Lvl (test code = Magnesium 1.8 1.8-2.4 Lvl) [facility] HospitalYbyqdcvMUPRPCDWNXUS3908-83-65 18:46:00 Test Item Value Reference Range Interpretation Comments AGAP (test code = AGAP) 13.2 10.0-20.0 [facility] HospitalHbvxmvrWMENREFOVJSF1968-49-54 18:46:00 Test Item Value Reference Range Interpretation Comments B/C Ratio (test code = B/C Ratio) 18 6-25 [facility] HospitalMsbdyafPLENNUKOLBOU5443-57-98 18:46:00 Test Item Value Reference Range Interpretation Comments A/G Ratio (test code = A/G Ratio) 1.1 0.7-1.6 [facility] HospitalByftamaDYRXSTIPELSU9079-59-94 18:46:00 Test Item Value Reference Range Interpretation Comments Globulin (test code = Globulin) 3.3 2.0-4.0 [facility] HospitalEmyxmnmPRIXCROKCKZA7689-74-26 18:46:00 Test Item Value Reference Range Interpretation Comments eGFR (test code = eGFR) 99 [facility] HospitalFskbckpDSZRYVUFQYUD4387-56-47 18:46:00 Test Item Value Reference Range Interpretation Comments Calcium Lvl (test code = Calcium Lvl) 9.0 8.5-10.5 [facility] HospitalRbvzlwgUZKCWCHFOZNM2988-76-11 18:46:00 Test Item Value Reference Range Interpretation Comments Chloride Lvl (test code = Chloride Lvl) 106 95-109 [facility] HospitalNsmeusxFJZQYWKIVMMV6823-74-37 18:46:00 Test Item Value Reference Range Interpretation Comments Creatinine Lvl (test code = Creatinine 0.9 0.5-1.4 Lvl) [facility] HospitalTptmqyxBVLSKFLTNKCL9268-55-66 18:46:00 Test Item Value Reference Range Interpretation Comments Potassium Lvl (test code = Potassium 4.2 3.5-5.1 Lvl) [facility] HospitalJsihodzQUKHBOXQPMYR2013-50-91 18:46:00 Test Item Value Reference Range Interpretation Comments Sodium Lvl (test code = Sodium Lvl) 139 135-145 [facility] HospitalDfnflqyKFUJFWWHLQHB5139-80-06 18:46:00 Test Item Value Reference Range Interpretation Comments CO2 (test code = CO2) 24 24-32 [facility] HospitalJpgfcxvTUMIJQLXKISD5407-45-28 18:46:00 Test Item Value Reference Range Interpretation Comments BUN (test code = BUN) 16 7-22 [facility] HospitalAwwpoqzHHINDVLIMJIC3428-93-24 18:46:00 Test Item Value Reference Range Interpretation Comments Glucose Lvl (test code = Glucose Lvl) 141 70-99 [facility] HospitalVunvisnCEFWGUCFFIOV5254-53-40 18:46:00 Test Item Value Reference Range Interpretation Comments Albumin Lvl (test code = Albumin Lvl) 3.6 3.5-5.0 [facility] HospitalHezweeeRGKEKVGMZTJB7706-14-95 18:46:00 Test Item Value Reference Range Interpretation Comments Alk Phos (test code = Alk Phos) 65 39-136 [facility] HospitalPkjeulfNHLZYRVIMJUN4674-21-48 18:46:00 Test Item Value Reference Range Interpretation Comments Bili Total (test code = Bili Total) 0.3 0.2-1.3 [facility] HospitalQiuldjqVKLORLDFODCI6179-91-41 18:46:00 Test Item Value Reference Range Interpretation Comments ALT (test code = ALT) 100 See_Comment [Auto mated message] The system which ge nerated this result transmit elizabeth reference range : <=65. The reference range was not used to interpr et this result as margaret l/abnormal. [facility] HospitalWlpkzwxWYIFOIKVEKTH5033-57-27 18:46:00 Test Item Value Reference Range Interpretation Comments AST (test code = AST) 53 See_Comment [Auto mated message] The system which ge nerated this result transmit elizabeth reference range : <=37. The reference range was not used to interpr et this result as margaret l/abnormal. [facility] HospitalImvmwcpCVEYLCWTKGPG7104-94-10 18:46:00 Test Item Value Reference Range Interpretation Comments Total Protein (test code = Total 6.9 6.4-8.4 Protein) [facility]burgVmhwsulTAFQEURRLA2903-92-14 18:46:00 Test Item Value Reference Range Interpretation Comments Eosinophils (test code = 4.2 See_Comment [A utomated message] The Eosinophils) system which ge nerated this result tra nsmitted reference range : <=4.0. The reference r mitra was not used to int erpret this result as normal/abnormal . [facility]burgQgfmtmpEJHZZURXZJ1783-18-61 18:46:00 Test Item Value Reference Range Interpretation Comments Segs (test code = Segs) 56.4 45.0-75.0 [facility]burgWxtyfqhYREKACERSQ8182-46-78 18:46:00 Test Item Value Reference Range Interpretation Comments Monocytes (test code = Monocytes) 10.3 2.0-12.0 [facility]burgYvlixwjVHIGBSSAXK6594-61-15 18:46:00 Test Item Value Reference Range Interpretation Comments Lymphocytes (test code = Lymphocytes) 28.0 20.0-40.0 [facility]inburgLhuppkbUVMGWXNMRY5635-38-69 18:46:00 Test Item Value Reference Range Interpretation Comments Monocytes # (test code 0.5 See_Comment [Aut omated message] The = Monocytes #) system which generated this result tra nsmitted reference range : <=0.8. The reference r mitra was not used to int erpret this result as normal/abnormal . [facility]inburgDkesiewABVNYQIFMP9186-91-39 18:46:00 Test Item Value Reference Range Interpretation Comments Basophils (test code = 1.1 See_Comment [Aut omated message] The Basophils) system which ge nerated this result tra nsmitted reference range : <=1.0. The reference r mitra was not used to int erpret this result as normal/abnormal . [facility]burgFsfpkpvPNVKSBAFFH4798-46-82 18:46:00 Test Item Value Reference Range Interpretation Comments Lymphocytes # (test code = Lymphocytes 1.5 1.0-5.5 #) [facility]inburgZguubskBJALTAISAZ9687-54-44 18:46:00 Test Item Value Reference Range Interpretation Comments Segs-Bands # (test code = Segs-Bands #) 2.9 1.5-8.1 [facility]inburgUbyuefiJJUKYKHDUL3802-86-49 18:46:00 Test Item Value Reference Range Interpretation Comments Eosinophils # (test code 0.2 See_Comment [A utomated message] The = Eosinophils #) system whic h generated this result tra nsmitted reference range : <=0.5. The reference r mitra was not used to int erpret this result as normal/abnormal . [facility]burgOhumxcmDJBEBRYZML4584-37-27 18:46:00 Test Item Value Reference Range Interpretation Comments Basophils # (test code 0.1 See_Comment [Aut omated message] The = Basophils #) system which generated this result tra nsmitted reference range : <=0.2. The reference r mitra was not used to int erpret this result as normal/abnormal . [facility]inburgYkzmptlUQXVMXZCRO7128-22-56 18:46:00 Test Item Value Reference Range Interpretation Comments PT (test code = PT) 11.2 s 12.0-14.7 [facility]burgOlrqprvCFXIABQALS4794-52-12 18:46:00 Test Item Value Reference Range Interpretation Comments INR (test code = INR) 0.82 0.85-1.17 [facility]inburgAeypxxdUDUUKDOOTL2820-81-25 18:46:00 Test Item Value Reference Range Interpretation Comments PTT (test code = PTT) 28.6 s 22.9-35.8 [facility]inburgBhfkmvjSDHZMVJXEU7794-27-37 18:46:00 Test Item Value Reference Range Interpretation Comments MPV (test code = MPV) 8.1 7.4-10.4 [facility]inburgVvsfrdqWWVWPNUIUB2009-22-17 18:46:00 Test Item Value Reference Range Interpretation Comments Platelet (test code = Platelet) 301 133-450 [facility] EdinburgRtfbbhsPMYHVGGCQD9367-45-57 18:46:00 Test Item Value Reference Range Interpretation Comments RDW (test code = RDW) 14.5 11.5-14.5 [facility]burgYkqdicpGRSLJBXCLJ4353-83-84 18:46:00 Test Item Value Reference Range Interpretation Comments RBC (test code = RBC) 4.84 4.70-6.10 [facility]burgOuwfbfwTITEIXXRSU1228-34-30 18:46:00 Test Item Value Reference Range Interpretation Comments Hgb (test code = Hgb) 14.4 14.0-18.0 [facility] EdinburgCvcopdsZKNGXEQKMH8762-30-16 18:46:00 Test Item Value Reference Range Interpretation Comments WBC (test code = WBC) 5.2 3.7-10.4 [facility]inburgCyejxuiGZACYZLHLB9721-29-31 18:46:00 Test Item Value Reference Range Interpretation Comments MCH (test code = MCH) 29.8 pg 27.0-31.0 [facility] HospitalChiesrePEKNSTZLNY4398-63-65 18:46:00 Test Item Value Reference Range Interpretation Comments MCV (test code = MCV) 92.0 80.0-94.0 [facility] HospitalJmynujrMFXXFGGZOH5262-18-81 18:46:00 Test Item Value Reference Range Interpretation Comments Hct (test code = Hct) 44.5 42.0-54.0 [facility] HospitalKnieiodICSIDVQJIA9670-94-16 18:46:00 Test Item Value Reference Range Interpretation Comments MCHC (test code = MCHC) 32.4 32.0-36.0 [id number] 18:46:00 Test Item Value Reference Range Interpretation Comments Elroy-Hep C Ab (test Negative *NA*(07/22/14 code = Elroy-Hep C 1:46 PM) Ab) [facility] AND [id number] 18:46:00 Test Item Value Reference Range Interpretation Comments UA Urobilinogen (test code = UA <=1.0 mg/dL 0.1-1.0 Urobilinogen) [facility] AND [id number] 18:46:00 Test Item Value Reference Range Interpretation Comments UA Sq Epi (test code = UA Sq Epi) None Seen [facility] AND [id number] 18:46:00 Test Item Value Reference Range Interpretation Comments UA Leuk Est (test Negative (07/22/14 1:46 code = UA Leuk Est) PM) [facility] AND [id number] 18:46:00 Test Item Value Reference Range Interpretation Comments UA Nitrite (test code Negative (07/22/14 1:46 = UA Nitrite) PM) [facility] AND [id number] 18:46:00 Test Item Value Reference Range Interpretation Comments UA Blood (test code = Negative (07/22/14 1:46 UA Blood) PM) [facility] AND [id number] 18:46:00 Test Item Value Reference Range Interpretation Comments UA Ketones (test code = UA Negative mg/dL Ketones) [facility] AND [id number] 18:46:00 Test Item Value Reference Range Interpretation Comments UA Bili (test code = Negative *NA*(07/22/14 UA Bili) 1:46 PM) [facility] [id number] 18:46:00 Test Item Value Reference Range Interpretation Comments UA Bacteria (test code = UA Occasional /HPF Bacteria) [facility] [id number] 18:46:00 Test Item Value Reference Range Interpretation Comments UA RBC (test code = no gt See_Comment [Automa elizabeth message] The UA RBC) system which ge nerated this result transmit elizabeth reference range : <=2. The reference range was not used to interpr et this result as margaret l/abnormal. [facility] [id number] 18:46:00 Test Item Value Reference Range Interpretation Comments UA WBC (test code = 1 See_Comment [Automa elizabeth message] The UA WBC) system which ge nerated this result transmit elizabeth reference range : <=5. The reference range was not used to interpr et this result as margaret l/abnormal. [facility] [id number] 18:46:00 Test Item Value Reference Range Interpretation Comments UA Glucose (test code = UA Glucose) 30 mg/dL [facility] AND [id number] 18:46:00 Test Item Value Reference Range Interpretation Comments UA Protein (test code = UA Negative mg/dL Protein) [facility] [id number] 18:46:00 Test Item Value Reference Range Interpretation Comments UA pH (test code = UA pH) 6.5 5.0-8.0 [facility] AND [id number] 18:46:00 Test Item Value Reference Range Interpretation Comments UA Turbidity (test code = Clear (07/22/14 1:46 UA Turbidity) PM) [facility] [id number] 18:46:00 Test Item Value Reference Range Interpretation Comments UA Spec Grav (test code = UA Spec Grav) 1.010 [facility] [id number] 18:46:00 Test Item Value Reference Range Interpretation Comments UA Color (test code = Light Yellow UA Color) *NA*(07/22/14 1:46 PM) [facility] [id number] 18:46:00 Test Item Value Reference Range Interpretation Comments Magnesium Lvl (test code = Magnesium 1.8 1.8-2.4 Lvl) [id number] 18:46:00 Test Item Value Reference Range Interpretation Comments AGAP (test code = AGAP) 13.2 10.0-20.0 [facility] HospitalCdnwvxqVOVYRKHIUDEV0775-55-98 18:46:00 Test Item Value Reference Range Interpretation Comments B/C Ratio (test code = B/C Ratio) 18 6-25 [facility] HospitalWuafwtsCVMTIUAGFXET4518-00-63 18:46:00 Test Item Value Reference Range Interpretation Comments A/G Ratio (test code = A/G Ratio) 1.1 0.7-1.6 [facility] HospitalJfccemqPEOBOTMRLLUR1144-33-80 18:46:00 Test Item Value Reference Range Interpretation Comments Globulin (test code = Globulin) 3.3 2.0-4.0 [facility] HospitalFolrifmJNMWLPHGNEYE6274-67-00 18:46:00 Test Item Value Reference Range Interpretation Comments eGFR (test code = eGFR) 99 [facility] HospitalBfvfutuTTWFTANULECE1934-62-98 18:46:00 Test Item Value Reference Range Interpretation Comments Calcium Lvl (test code = Calcium Lvl) 9.0 8.5-10.5 [facility] HospitalLwsaefcPFGKHJOUROGR3038-72-37 18:46:00 Test Item Value Reference Range Interpretation Comments Chloride Lvl (test code = Chloride Lvl) 106 95-109 [facility] HospitalNnchsdxQRPBNEAMNQRO5846-91-58 18:46:00 Test Item Value Reference Range Interpretation Comments Creatinine Lvl (test code = Creatinine 0.9 0.5-1.4 Lvl) [facility] HospitalCmrwpkqQOCELNNCDMIH2061-16-45 18:46:00 Test Item Value Reference Range Interpretation Comments Potassium Lvl (test code = Potassium 4.2 3.5-5.1 Lvl) [facility] HospitalYzxmflsJGVTDWOLAMFV2950-30-25 18:46:00 Test Item Value Reference Range Interpretation Comments Sodium Lvl (test code = Sodium Lvl) 139 135-145 [facility] HospitalTypqaisBKRHLBEHGGPQ1817-97-58 18:46:00 Test Item Value Reference Range Interpretation Comments CO2 (test code = CO2) 24 24-32 [facility] HospitalYsygvcxMFPBRFTADMPP9955-96-12 18:46:00 Test Item Value Reference Range Interpretation Comments BUN (test code = BUN) 16 7-22 [facility] HospitalZrarkthHHFVVAENQVNT8538-59-37 18:46:00 Test Item Value Reference Range Interpretation Comments Glucose Lvl (test code = Glucose Lvl) 141 70-99 [facility] HospitalBtzqxkrOSQYFDGXHHOC7109-71-45 18:46:00 Test Item Value Reference Range Interpretation Comments Albumin Lvl (test code = Albumin Lvl) 3.6 3.5-5.0 [facility] HospitalFmocyjnKGTNJAJOIDVS7915-79-56 18:46:00 Test Item Value Reference Range Interpretation Comments Alk Phos (test code = Alk Phos) 65 39-136 [facility] HospitalIoawnueOGIVRNEVQUCJ5260-94-26 18:46:00 Test Item Value Reference Range Interpretation Comments Bili Total (test code = Bili Total) 0.3 0.2-1.3 [facility] HospitalJvsnrhzKFHHMIVNVBSN8806-91-49 18:46:00 Test Item Value Reference Range Interpretation Comments ALT (test code = ALT) 100 See_Comment [Auto mated message] The system which ge nerated this result transmit elizabeth reference range : <=65. The reference range was not used to interpr et this result as margaret l/abnormal. [facility] HospitalPuoxdvuZNBTJJUTYTCK2649-44-25 18:46:00 Test Item Value Reference Range Interpretation Comments AST (test code = AST) 53 See_Comment [Auto mated message] The system which ge nerated this result transmit elizabeth reference range : <=37. The reference range was not used to interpr et this result as margaret l/abnormal. [facility] HospitalAcwftznHKSMUFNQSHHS6029-04-47 18:46:00 Test Item Value Reference Range Interpretation Comments Total Protein (test code = Total 6.9 6.4-8.4 Protein) [facility]YytnuhxCQWWYQTHYG3062-48-12 18:46:00 Test Item Value Reference Range Interpretation Comments Eosinophils (test code = 4.2 See_Comment [A utomated message] The Eosinophils) system which ge nerated this result tra nsmitted reference range : <=4.0. The reference r mitra was not used to int erpret this result as normal/abnormal . [facility]burgFhcoirsCWYCOAGQUS5387-43-55 18:46:00 Test Item Value Reference Range Interpretation Comments Segs (test code = Segs) 56.4 45.0-75.0 [facility]burgYpouuvgENYHOPSVDV4979-07-99 18:46:00 Test Item Value Reference Range Interpretation Comments Monocytes (test code = Monocytes) 10.3 2.0-12.0 [facility]burgYjtziuuUETKIQPAPC4382-17-44 18:46:00 Test Item Value Reference Range Interpretation Comments Lymphocytes (test code = Lymphocytes) 28.0 20.0-40.0 [facility]burgQrogjabYBNBYGCAOV2150-02-22 18:46:00 Test Item Value Reference Range Interpretation Comments Monocytes # (test code 0.5 See_Comment [Aut omated message] The = Monocytes #) system which generated this result tra nsmitted reference range : <=0.8. The reference r mitra was not used to int erpret this result as normal/abnormal . [facility]burgPzjxtjyPOZBBDCSKJ9751-75-22 18:46:00 Test Item Value Reference Range Interpretation Comments Basophils (test code = 1.1 See_Comment [Aut omated message] The Basophils) system which ge nerated this result tra nsmitted reference range : <=1.0. The reference r mitra was not used to int erpret this result as normal/abnormal . [facility]burgJdqyyndUDOYVIVHHR0831-62-05 18:46:00 Test Item Value Reference Range Interpretation Comments Lymphocytes # (test code = Lymphocytes 1.5 1.0-5.5 #) [facility]burgMqckssqEYOVRZYJME7948-25-97 18:46:00 Test Item Value Reference Range Interpretation Comments Segs-Bands # (test code = Segs-Bands #) 2.9 1.5-8.1 [facility]burgZkalxxuSKBOBHIRWK8868-93-05 18:46:00 Test Item Value Reference Range Interpretation Comments Eosinophils # (test code 0.2 See_Comment [A utomated message] The = Eosinophils #) system whic h generated this result tra nsmitted reference range : <=0.5. The reference r mitra was not used to int erpret this result as normal/abnormal . [facility]burgJservplPOWJRCDHNQ6724-07-74 18:46:00 Test Item Value Reference Range Interpretation Comments Basophils # (test code 0.1 See_Comment [Aut omated message] The = Basophils #) system which generated this result tra nsmitted reference range : <=0.2. The reference r mitra was not used to int erpret this result as normal/abnormal . [facility]burgObjrjlaRSAJPCBJFY0389-51-14 18:46:00 Test Item Value Reference Range Interpretation Comments PT (test code = PT) 11.2 s 12.0-14.7 [facility]burgPtfnhduDTAYJJAGSA6627-23-29 18:46:00 Test Item Value Reference Range Interpretation Comments INR (test code = INR) 0.82 0.85-1.17 [facility]burgOpayfsxTFMBDFSOBC3405-97-96 18:46:00 Test Item Value Reference Range Interpretation Comments PTT (test code = PTT) 28.6 s 22.9-35.8 [facility]burgYbezgdzISKIAECNDL5138-04-44 18:46:00 Test Item Value Reference Range Interpretation Comments MPV (test code = MPV) 8.1 7.4-10.4 [facility]burgFlgacjfJUUXIERROZ8120-31-75 18:46:00 Test Item Value Reference Range Interpretation Comments Platelet (test code = Platelet) 301 133-450 [facility]inburgTvulggsCVUQXPBUQJ1864-21-96 18:46:00 Test Item Value Reference Range Interpretation Comments RDW (test code = RDW) 14.5 11.5-14.5 [facility]burgDruaklhXREOYZXNTC4449-44-20 18:46:00 Test Item Value Reference Range Interpretation Comments RBC (test code = RBC) 4.84 4.70-6.10 [facility]burgKmpvfkfSQDEJAFRBW7282-27-84 18:46:00 Test Item Value Reference Range Interpretation Comments Hgb (test code = Hgb) 14.4 14.0-18.0 [facility]burgRocdhngUNABQCPWXA2612-53-32 18:46:00 Test Item Value Reference Range Interpretation Comments WBC (test code = WBC) 5.2 3.7-10.4 [facility]burgCnhuwwcJQQWYXXMCZ3388-53-03 18:46:00 Test Item Value Reference Range Interpretation Comments MCH (test code = MCH) 29.8 pg 27.0-31.0 [facility]burgPjfvydwLBGFKSLBNS7438-36-85 18:46:00 Test Item Value Reference Range Interpretation Comments MCV (test code = MCV) 92.0 80.0-94.0 [facility]burgJkinpiaKKVCGTTUAR7080-41-12 18:46:00 Test Item Value Reference Range Interpretation Comments Hct (test code = Hct) 44.5 42.0-54.0 [facility]burgMgojsdsCSWLUVDKCQ0008-96-91 18:46:00 Test Item Value Reference Range Interpretation Comments MCHC (test code = MCHC) 32.4 32.0-36.0 [facility]jputorYCOFVKVDYM3808-63-84 18:46:00 Test Item Value Reference Range Interpretation Comments Elroy-Hep C Ab (test Negative *NA*(07/22/14 code = Elroy-Hep C 1:46 PM) Ab) [facility] AND [id number] 18:46:00 Test Item Value Reference Range Interpretation Comments UA Urobilinogen (test code = UA <=1.0 mg/dL 0.1-1.0 Urobilinogen) [facility] AND [id number] 18:46:00 Test Item Value Reference Range Interpretation Comments UA Sq Epi (test code = UA Sq Epi) None Seen [facility] AND [id number] 18:46:00 Test Item Value Reference Range Interpretation Comments UA Leuk Est (test Negative (07/22/14 1:46 code = UA Leuk Est) PM) [facility] AND [id number] 18:46:00 Test Item Value Reference Range Interpretation Comments UA Nitrite (test code Negative (07/22/14 1:46 = UA Nitrite) PM) [facility] AND [id number] 18:46:00 Test Item Value Reference Range Interpretation Comments UA Blood (test code = Negative (07/22/14 1:46 UA Blood) PM) [facility] AND [id number] 18:46:00 Test Item Value Reference Range Interpretation Comments UA Ketones (test code = UA Negative mg/dL Ketones) [facility] AND [id number] 18:46:00 Test Item Value Reference Range Interpretation Comments UA Bili (test code = Negative *NA*(07/22/14 UA Bili) 1:46 PM) [facility] AND [id number] 18:46:00 Test Item Value Reference Range Interpretation Comments UA Bacteria (test code = UA Occasional /HPF Bacteria) [facility] AND [id number] 18:46:00 Test Item Value Reference Range Interpretation Comments UA RBC (test code = no gt See_Comment [Automa elizabeth message] The UA RBC) system which ge nerated this result transmit elizabeth reference range : <=2. The reference range was not used to interpr et this result as margaret l/abnormal. [facility] AND [id number] 18:46:00 Test Item Value Reference Range Interpretation Comments UA WBC (test code = 1 See_Comment [Automa elizabeth message] The UA WBC) system which ge nerated this result transmit elizabeth reference range : <=5. The reference range was not used to interpr et this result as margaret l/abnormal. [facility] AND [id number] 18:46:00 Test Item Value Reference Range Interpretation Comments UA Glucose (test code = UA Glucose) 30 mg/dL [facility] AND [id number] 18:46:00 Test Item Value Reference Range Interpretation Comments UA Protein (test code = UA Negative mg/dL Protein) [facility] AND [id number] 18:46:00 Test Item Value Reference Range Interpretation Comments UA pH (test code = UA pH) 6.5 5.0-8.0 [facility] AND [id number] 18:46:00 Test Item Value Reference Range Interpretation Comments UA Turbidity (test code = Clear (07/22/14 1:46 UA Turbidity) PM) [facility] AND [id number] 18:46:00 Test Item Value Reference Range Interpretation Comments UA Spec Grav (test code = UA Spec Grav) 1.010 [facility] AND [id number] 18:46:00 Test Item Value Reference Range Interpretation Comments UA Color (test code = Light Yellow UA Color) *NA*(07/22/14 1:46 PM) [facility] [id number] 18:46:00 Test Item Value Reference Range Interpretation Comments Magnesium Lvl (test code = Magnesium 1.8 1.8-2.4 Lvl) [facility]UfmhovsFTHERWZEEMCK3588-26-23 18:46:00 Test Item Value Reference Range Interpretation Comments AGAP (test code = AGAP) 13.2 10.0-20.0 [facility] HospitalCfhvdgmABEQXVHCMSLO7994-11-41 18:46:00 Test Item Value Reference Range Interpretation Comments B/C Ratio (test code = B/C Ratio) 18 6-25 [facility] HospitalZfxhvoyYRCIVLMLQSPQ4081-07-36 18:46:00 Test Item Value Reference Range Interpretation Comments A/G Ratio (test code = A/G Ratio) 1.1 0.7-1.6 [facility] HospitalVemcqfhBUAIXOSEKHLR6293-81-62 18:46:00 Test Item Value Reference Range Interpretation Comments Globulin (test code = Globulin) 3.3 2.0-4.0 [facility] HospitalAqiakblIAQZEOETSYFM5232-56-60 18:46:00 Test Item Value Reference Range Interpretation Comments eGFR (test code = eGFR) 99 [facility] HospitalWwwyzpeMJINNOYUNHAH6386-12-09 18:46:00 Test Item Value Reference Range Interpretation Comments Calcium Lvl (test code = Calcium Lvl) 9.0 8.5-10.5 [facility] HospitalExljsymJQKXOMIKHKWB3681-65-92 18:46:00 Test Item Value Reference Range Interpretation Comments Chloride Lvl (test code = Chloride Lvl) 106 95-109 [facility] HospitalEsfffykLSWORXNOIROF7491-75-87 18:46:00 Test Item Value Reference Range Interpretation Comments Creatinine Lvl (test code = Creatinine 0.9 0.5-1.4 Lvl) [facility] HospitalTisulqvVJNLZGHPYFFU0589-73-39 18:46:00 Test Item Value Reference Range Interpretation Comments Potassium Lvl (test code = Potassium 4.2 3.5-5.1 Lvl) [facility] HospitalEkdmavrDGPTYNOTDBKF1137-38-53 18:46:00 Test Item Value Reference Range Interpretation Comments Sodium Lvl (test code = Sodium Lvl) 139 135-145 [facility] HospitalYssolppGMBIAXAQYVOY7273-50-60 18:46:00 Test Item Value Reference Range Interpretation Comments CO2 (test code = CO2) 24 24-32 [facility] HospitalRpnolndPBHLCEVCXEGI7291-46-68 18:46:00 Test Item Value Reference Range Interpretation Comments BUN (test code = BUN) 16 7-22 [facility] HospitalYkilirjTIBAYYMDNEYZ9671-63-81 18:46:00 Test Item Value Reference Range Interpretation Comments Glucose Lvl (test code = Glucose Lvl) 141 70-99 [facility] HospitalGcopihaTWVEJPEEAMOY9283-20-20 18:46:00 Test Item Value Reference Range Interpretation Comments Albumin Lvl (test code = Albumin Lvl) 3.6 3.5-5.0 [facility] HospitalXbkpppqMNISIJBIIIXR7815-50-53 18:46:00 Test Item Value Reference Range Interpretation Comments Alk Phos (test code = Alk Phos) 65 39-136 [facility] HospitalQdjrleoFSFGLGJOAUAW0418-58-62 18:46:00 Test Item Value Reference Range Interpretation Comments Bili Total (test code = Bili Total) 0.3 0.2-1.3 [facility] HospitalAlbfvlgRJAWIOAZBYYG7363-61-92 18:46:00 Test Item Value Reference Range Interpretation Comments ALT (test code = ALT) 100 See_Comment [Auto mated message] The system which ge nerated this result transmit elizabeth reference range : <=65. The reference range was not used to interpr et this result as margaret l/abnormal. [facility] HospitalBofusysCFGIZMCDXEZF1447-40-09 18:46:00 Test Item Value Reference Range Interpretation Comments AST (test code = AST) 53 See_Comment [Auto mated message] The system which ge nerated this result transmit elizabeth reference range : <=37. The reference range was not used to interpr et this result as margaret l/abnormal. [facility] HospitalGrdfdrbCKGZJJDBJTCI2671-63-89 18:46:00 Test Item Value Reference Range Interpretation Comments Total Protein (test code = Total 6.9 6.4-8.4 Protein) [facility]burgEcnsbfeSIWXRTLPUO1792-03-67 18:46:00 Test Item Value Reference Range Interpretation Comments Eosinophils (test code = 4.2 See_Comment [A utomated message] The Eosinophils) system which ge nerated this result tra nsmitted reference range : <=4.0. The reference r mitra was not used to int erpret this result as normal/abnormal . [facility]burgBfjgfgaTDBTJDCPGQ1184-98-89 18:46:00 Test Item Value Reference Range Interpretation Comments Segs (test code = Segs) 56.4 45.0-75.0 [facility]burgOeunhjeZHIOGQYQZB1338-14-55 18:46:00 Test Item Value Reference Range Interpretation Comments Monocytes (test code = Monocytes) 10.3 2.0-12.0 [facility]burgGmndbnpGHYXYWTINR1154-89-19 18:46:00 Test Item Value Reference Range Interpretation Comments Lymphocytes (test code = Lymphocytes) 28.0 20.0-40.0 [facility]burgRjuwpmtQCCUPJJTBZ7591-00-53 18:46:00 Test Item Value Reference Range Interpretation Comments Monocytes # (test code 0.5 See_Comment [Aut omated message] The = Monocytes #) system which generated this result tra nsmitted reference range : <=0.8. The reference r mitra was not used to int erpret this result as normal/abnormal . [facility]burgOwzpwjrXFKTUYYJZG1332-23-01 18:46:00 Test Item Value Reference Range Interpretation Comments Basophils (test code = 1.1 See_Comment [Aut omated message] The Basophils) system which ge nerated this result tra nsmitted reference range : <=1.0. The reference r mitra was not used to int erpret this result as normal/abnormal . [facility]burgZufrmqeNGHTTZBDPK5808-52-61 18:46:00 Test Item Value Reference Range Interpretation Comments Lymphocytes # (test code = Lymphocytes 1.5 1.0-5.5 #) [facility]burgLqssetyZKGTWOYJOK3026-34-87 18:46:00 Test Item Value Reference Range Interpretation Comments Segs-Bands # (test code = Segs-Bands #) 2.9 1.5-8.1 [facility]burgQtpzxojCWEZHDEGBG3383-16-74 18:46:00 Test Item Value Reference Range Interpretation Comments Eosinophils # (test code 0.2 See_Comment [A utomated message] The = Eosinophils #) system whic h generated this result tra nsmitted reference range : <=0.5. The reference r mitra was not used to int erpret this result as normal/abnormal . [facility]burgKemonijUKJYRLQXXN9691-57-56 18:46:00 Test Item Value Reference Range Interpretation Comments Basophils # (test code 0.1 See_Comment [Aut omated message] The = Basophils #) system which generated this result tra nsmitted reference range : <=0.2. The reference r mitra was not used to int erpret this result as normal/abnormal . [facility]burgHxvlnzxPULEKOHEDB0581-58-22 18:46:00 Test Item Value Reference Range Interpretation Comments PT (test code = PT) 11.2 s 12.0-14.7 [facility]burgWpueebxVGMCJAWJFV0515-15-58 18:46:00 Test Item Value Reference Range Interpretation Comments INR (test code = INR) 0.82 0.85-1.17 [facility]burgSvucrxrDJZEEEJMPE4495-11-05 18:46:00 Test Item Value Reference Range Interpretation Comments PTT (test code = PTT) 28.6 s 22.9-35.8 [facility]inburgNolyozyLURNUZSFQV2437-65-90 18:46:00 Test Item Value Reference Range Interpretation Comments MPV (test code = MPV) 8.1 7.4-10.4 [facility]burgBbkexzgPBBBOUMREB6377-78-31 18:46:00 Test Item Value Reference Range Interpretation Comments Platelet (test code = Platelet) 301 133-450 [facility]inburgFautxvcUJUGJWADPD5684-92-29 18:46:00 Test Item Value Reference Range Interpretation Comments RDW (test code = RDW) 14.5 11.5-14.5 [facility]burgQnmhkkoIUFRTOWYHG5275-32-13 18:46:00 Test Item Value Reference Range Interpretation Comments RBC (test code = RBC) 4.84 4.70-6.10 [facility]burgDsfunyuBHGOTVQONK0677-04-47 18:46:00 Test Item Value Reference Range Interpretation Comments Hgb (test code = Hgb) 14.4 14.0-18.0 [facility]inburgIehhaolBHXKPUKXNR1527-36-04 18:46:00 Test Item Value Reference Range Interpretation Comments WBC (test code = WBC) 5.2 3.7-10.4 [facility]inburgJsmzijwZVIYIBREZY0622-80-95 18:46:00 Test Item Value Reference Range Interpretation Comments MCH (test code = MCH) 29.8 pg 27.0-31.0 [facility]inburgTqdymcbESLHZFKYEG5490-58-25 18:46:00 Test Item Value Reference Range Interpretation Comments MCV (test code = MCV) 92.0 80.0-94.0 [facility]burgPcybfwmCPFCVAJALI5033-70-48 18:46:00 Test Item Value Reference Range Interpretation Comments Hct (test code = Hct) 44.5 42.0-54.0 [facility]burgVvaphegNSKJPNEECA0137-26-75 18:46:00 Test Item Value Reference Range Interpretation Comments MCHC (test code = MCHC) 32.4 32.0-36.0 [facility]XDRFKEFZDS0434-[facility]-76 18:46:00 Test Item Value Reference Range Interpretation Comments Elroy-Hep C Ab (test Negative *NA*(07/22/14 code = Elroy-Hep C 1:46 PM) Ab) [facility] AND [id number] 18:46:00 Test Item Value Reference Range Interpretation Comments UA Urobilinogen (test code = UA <=1.0 mg/dL 0.1-1.0 Urobilinogen) [facility] AND [id number] 18:46:00 Test Item Value Reference Range Interpretation Comments UA Sq Epi (test code = UA Sq Epi) None Seen [facility] AND [id number] 18:46:00 Test Item Value Reference Range Interpretation Comments UA Leuk Est (test Negative (07/22/14 1:46 code = UA Leuk Est) PM) [facility] AND [id number] 18:46:00 Test Item Value Reference Range Interpretation Comments UA Nitrite (test code Negative (07/22/14 1:46 = UA Nitrite) PM) [facility] AND [id number] 18:46:00 Test Item Value Reference Range Interpretation Comments UA Blood (test code = Negative (07/22/14 1:46 UA Blood) PM) [facility] AND [id number] 18:46:00 Test Item Value Reference Range Interpretation Comments UA Ketones (test code = UA Negative mg/dL Ketones) [facility] AND [id number] 18:46:00 Test Item Value Reference Range Interpretation Comments UA Bili (test code = Negative *NA*(07/22/14 UA Bili) 1:46 PM) [facility] AND [id number] 18:46:00 Test Item Value Reference Range Interpretation Comments UA Bacteria (test code = UA Occasional /HPF Bacteria) [facility] AND [id number] 18:46:00 Test Item Value Reference Range Interpretation Comments UA RBC (test code = no gt See_Comment [Automa elizabeth message] The UA RBC) system which ge nerated this result transmit elizabeth reference range : <=2. The reference range was not used to interpr et this result as margaret l/abnormal. [facility] AND [id number] 18:46:00 Test Item Value Reference Range Interpretation Comments UA WBC (test code = 1 See_Comment [Automa elizabeth message] The UA WBC) system which ge nerated this result transmit elizabeth reference range : <=5. The reference range was not used to interpr et this result as margaret l/abnormal. [facility] AND [id number] 18:46:00 Test Item Value Reference Range Interpretation Comments UA Glucose (test code = UA Glucose) 30 mg/dL [facility] AND [id number] 18:46:00 Test Item Value Reference Range Interpretation Comments UA Protein (test code = UA Negative mg/dL Protein) [facility] AND [id number] 18:46:00 Test Item Value Reference Range Interpretation Comments UA pH (test code = UA pH) 6.5 5.0-8.0 [facility] AND [id number] 18:46:00 Test Item Value Reference Range Interpretation Comments UA Turbidity (test code = Clear (07/22/14 1:46 UA Turbidity) PM) [facility] AND [id number] 18:46:00 Test Item Value Reference Range Interpretation Comments UA Spec Grav (test code = UA Spec Grav) 1.010 [facility] AND [id number] 18:46:00 Test Item Value Reference Range Interpretation Comments UA Color (test code = Light Yellow UA Color) *NA*(07/22/14 1:46 PM) [facility] [id number] 18:46:00 Test Item Value Reference Range Interpretation Comments Magnesium Lvl (test code = Magnesium 1.8 1.8-2.4 Lvl) [facility]SQJHJUHLHDHH3612-24-72 18:46:00 Test Item Value Reference Range Interpretation Comments AGAP (test code = AGAP) 13.2 10.0-20.0 [facility] HospitalJxtiyvsLUXUUUCBOLWX8885-79-90 18:46:00 Test Item Value Reference Range Interpretation Comments B/C Ratio (test code = B/C Ratio) 18 6-25 [facility] HospitalIgseejyNLMHIIMUMEKX4873-85-37 18:46:00 Test Item Value Reference Range Interpretation Comments A/G Ratio (test code = A/G Ratio) 1.1 0.7-1.6 [facility]KnzfnyzEFZURWNFTISI6754-22-81 18:46:00 Test Item Value Reference Range Interpretation Comments Globulin (test code = Globulin) 3.3 2.0-4.0 [facility] HospitalQjkevqnNVSZMSVTGBBJ8928-51-37 18:46:00 Test Item Value Reference Range Interpretation Comments eGFR (test code = eGFR) 99 [facility] HospitalHawqeepFAUYLLTHZIDM7239-09-56 18:46:00 Test Item Value Reference Range Interpretation Comments Calcium Lvl (test code = Calcium Lvl) 9.0 8.5-10.5 [facility] HospitalNjpmchrVMDYMKBCHQFI9794-70-15 18:46:00 Test Item Value Reference Range Interpretation Comments Chloride Lvl (test code = Chloride Lvl) 106 95-109 [facility] HospitalOgeihqzPEMNJCRMHFSF8363-68-04 18:46:00 Test Item Value Reference Range Interpretation Comments Creatinine Lvl (test code = Creatinine 0.9 0.5-1.4 Lvl) [facility] HospitalBmafkvpBWEUWDRENVSU9813-04-58 18:46:00 Test Item Value Reference Range Interpretation Comments Potassium Lvl (test code = Potassium 4.2 3.5-5.1 Lvl) [facility] HospitalEkbncgkMIBNDNBFQEZH6937-56-50 18:46:00 Test Item Value Reference Range Interpretation Comments Sodium Lvl (test code = Sodium Lvl) 139 135-145 [facility] HospitalCiuwngiBXSVANVCBEDI8217-38-45 18:46:00 Test Item Value Reference Range Interpretation Comments CO2 (test code = CO2) 24 24-32 [facility] HospitalAhzvgygOCOBFHWTWWOD0123-89-09 18:46:00 Test Item Value Reference Range Interpretation Comments BUN (test code = BUN) 16 7-22 [facility] HospitalKeccqjtMZDCRISNBENV7907-65-73 18:46:00 Test Item Value Reference Range Interpretation Comments Glucose Lvl (test code = Glucose Lvl) 141 70-99 [facility] HospitalFerwfpnEZIRWJDBJPAA0918-31-83 18:46:00 Test Item Value Reference Range Interpretation Comments Albumin Lvl (test code = Albumin Lvl) 3.6 3.5-5.0 [facility] HospitalCqiwlvlHOZEPGYSNIXG2732-13-28 18:46:00 Test Item Value Reference Range Interpretation Comments Alk Phos (test code = Alk Phos) 65 39-136 [facility] HospitalDbecjubHUXXTUIQDHPT3406-13-40 18:46:00 Test Item Value Reference Range Interpretation Comments Bili Total (test code = Bili Total) 0.3 0.2-1.3 [facility] HospitalGpaeelfIMBFWVKSJUXB1501-68-88 18:46:00 Test Item Value Reference Range Interpretation Comments ALT (test code = ALT) 100 See_Comment [Auto mated message] The system which ge nerated this result transmit elizabeth reference range : <=65. The reference range was not used to interpr et this result as margaret l/abnormal. [facility] HospitalJpxjmofNIURBQAZGIQE4617-58-11 18:46:00 Test Item Value Reference Range Interpretation Comments AST (test code = AST) 53 See_Comment [Auto mated message] The system which ge nerated this result transmit elizabeth reference range : <=37. The reference range was not used to interpr et this result as margaret l/abnormal. [facility] HospitalMsumtvcGLLEOEYWIBBD6083-49-12 18:46:00 Test Item Value Reference Range Interpretation Comments Total Protein (test code = Total 6.9 6.4-8.4 Protein) [facility]zhiazhIYRZKIKJUL7097-13-07 18:46:00 Test Item Value Reference Range Interpretation Comments Eosinophils (test code = 4.2 See_Comment [A utomated message] The Eosinophils) system which ge nerated this result tra nsmitted reference range : <=4.0. The reference r mitra was not used to int erpret this result as normal/abnormal . [facility]CcmlhbnODJWTTNCTE5137-85-92 18:46:00 Test Item Value Reference Range Interpretation Comments Segs (test code = Segs) 56.4 45.0-75.0 [facility]CjbsqkiMSMJPAOILB6744-45-51 18:46:00 Test Item Value Reference Range Interpretation Comments Monocytes (test code = Monocytes) 10.3 2.0-12.0 [facility]burgHrbrtkjUNMIEHPTZJ2203-52-04 18:46:00 Test Item Value Reference Range Interpretation Comments Lymphocytes (test code = Lymphocytes) 28.0 20.0-40.0 [facility]burgPpfckfiHPUUNOYWTD0081-63-00 18:46:00 Test Item Value Reference Range Interpretation Comments Monocytes # (test code 0.5 See_Comment [Aut omated message] The = Monocytes #) system which generated this result tra nsmitted reference range : <=0.8. The reference r mitra was not used to int erpret this result as normal/abnormal . [facility]burgAybtkweHCZDHOTPSZ7204-19-04 18:46:00 Test Item Value Reference Range Interpretation Comments Basophils (test code = 1.1 See_Comment [Aut omated message] The Basophils) system which ge nerated this result tra nsmitted reference range : <=1.0. The reference r mitra was not used to int erpret this result as normal/abnormal . [facility]burgAdwcmayEOZJWGEJQK0231-08-86 18:46:00 Test Item Value Reference Range Interpretation Comments Lymphocytes # (test code = Lymphocytes 1.5 1.0-5.5 #) [facility]QckhgblCTDLVNUJGT4019-08-62 18:46:00 Test Item Value Reference Range Interpretation Comments Segs-Bands # (test code = Segs-Bands #) 2.9 1.5-8.1 [facility]VltiapgFDUBHRGSVA0068-75-15 18:46:00 Test Item Value Reference Range Interpretation Comments Eosinophils # (test code 0.2 See_Comment [A utomated message] The = Eosinophils #) system whic h generated this result tra nsmitted reference range : <=0.5. The reference r mitra was not used to int erpret this result as normal/abnormal . [facility]burgKbbxzfjTDVTSGYPIC9686-18-95 18:46:00 Test Item Value Reference Range Interpretation Comments Basophils # (test code 0.1 See_Comment [Aut omated message] The = Basophils #) system which generated this result tra nsmitted reference range : <=0.2. The reference r mitra was not used to int erpret this result as normal/abnormal . [facility]burgEguwbcmIRRCIJHHTI4176-09-91 18:46:00 Test Item Value Reference Range Interpretation Comments PT (test code = PT) 11.2 s 12.0-14.7 [facility]burgMjmhvjaAZCZWNNUGI9954-92-33 18:46:00 Test Item Value Reference Range Interpretation Comments INR (test code = INR) 0.82 0.85-1.17 [facility]burgAitiahuPOWCZAJUVH8637-22-59 18:46:00 Test Item Value Reference Range Interpretation Comments PTT (test code = PTT) 28.6 s 22.9-35.8 [facility]burgIvhuotmWOPOMMJBQN1816-09-62 18:46:00 Test Item Value Reference Range Interpretation Comments MPV (test code = MPV) 8.1 7.4-10.4 [facility]burgYizofemMOVUPHUPAA1080-03-30 18:46:00 Test Item Value Reference Range Interpretation Comments Platelet (test code = Platelet) 301 133-450 [facility]burgCnyrcwhXKVRHEJPEF0253-17-67 18:46:00 Test Item Value Reference Range Interpretation Comments RDW (test code = RDW) 14.5 11.5-14.5 [facility]burgKsxrnbtNWIIDKGFAQ5409-00-09 18:46:00 Test Item Value Reference Range Interpretation Comments RBC (test code = RBC) 4.84 4.70-6.10 [facility]burgZgvmeykPCCFHWUKVG9530-78-44 18:46:00 Test Item Value Reference Range Interpretation Comments Hgb (test code = Hgb) 14.4 14.0-18.0 [facility]KSKIQTVRQV6487-99-[facility] 18:46:00 Test Item Value Reference Range Interpretation Comments WBC (test code = WBC) 5.2 3.7-10.4 [facility]jkHFMEXVQKUP0626-07-56 18:46:00 Test Item Value Reference Range Interpretation Comments MCH (test code = MCH) 29.8 pg 27.0-31.0 [facility]burgZbsijzaFKCDMEXANI9637-25-61 18:46:00 Test Item Value Reference Range Interpretation Comments MCV (test code = MCV) 92.0 80.0-94.0 [facility]AhbggzzDNGACJTLQH5492-64-88 18:46:00 Test Item Value Reference Range Interpretation Comments Hct (test code = Hct) 44.5 42.0-54.0 [facility] HospitalKqtcnsgVWHQEZAQVZ4880-30-27 18:46:00 Test Item Value Reference Range Interpretation Comments MCHC (test code = MCHC) 32.4 32.0-36.0 [facility]DweftpbZLDFFCBNRI7021-79-28 18:46:00 Test Item Value Reference Range Interpretation Comments Elroy-Hep C Ab (test Negative *NA*(07/22/14 code = Elroy-Hep C 1:46 PM) Ab) [facility] AND [id number] 18:46:00 Test Item Value Reference Range Interpretation Comments UA Urobilinogen (test code = UA <=1.0 mg/dL 0.1-1.0 Urobilinogen) [facility] AND [id number] 18:46:00 Test Item Value Reference Range Interpretation Comments UA Sq Epi (test code = UA Sq Epi) None Seen [facility] AND [id number] 18:46:00 Test Item Value Reference Range Interpretation Comments UA Leuk Est (test Negative (07/22/14 1:46 code = UA Leuk Est) PM) [facility] AND [id number] 18:46:00 Test Item Value Reference Range Interpretation Comments UA Nitrite (test code Negative (07/22/14 1:46 = UA Nitrite) PM) [facility] AND [id number] 18:46:00 Test Item Value Reference Range Interpretation Comments UA Blood (test code = Negative (07/22/14 1:46 UA Blood) PM) [facility] AND [id number] 18:46:00 Test Item Value Reference Range Interpretation Comments UA Ketones (test code = UA Negative mg/dL Ketones) [facility] AND [id number] 18:46:00 Test Item Value Reference Range Interpretation Comments UA Bili (test code = Negative *NA*(07/22/14 UA Bili) 1:46 PM) [facility] AND [id number] 18:46:00 Test Item Value Reference Range Interpretation Comments UA Bacteria (test code = UA Occasional /HPF Bacteria) [facility] AND [id number] 18:46:00 Test Item Value Reference Range Interpretation Comments UA RBC (test code = no gt See_Comment [Automa elizabeth message] The UA RBC) system which ge nerated this result transmit elizabeth reference range : <=2. The reference range was not used to interpr et this result as maragret l/abnormal. [facility] AND [id number] 18:46:00 Test Item Value Reference Range Interpretation Comments UA WBC (test code = 1 See_Comment [Automa elizabeth message] The UA WBC) system which ge nerated this result transmit elizabeth reference range : <=5. The reference range was not used to interpr et this result as margaret l/abnormal. [facility] AND [id number] 18:46:00 Test Item Value Reference Range Interpretation Comments UA Glucose (test code = UA Glucose) 30 mg/dL [facility] AND [id number] 18:46:00 Test Item Value Reference Range Interpretation Comments UA Protein (test code = UA Negative mg/dL Protein) [facility] AND [id number] 18:46:00 Test Item Value Reference Range Interpretation Comments UA pH (test code = UA pH) 6.5 5.0-8.0 [facility] AND [id number] 18:46:00 Test Item Value Reference Range Interpretation Comments UA Turbidity (test code = Clear (07/22/14 1:46 UA Turbidity) PM) [facility] AND [id number] 18:46:00 Test Item Value Reference Range Interpretation Comments UA Spec Grav (test code = UA Spec Grav) 1.010 [facility] AND [id number] 18:46:00 Test Item Value Reference Range Interpretation Comments UA Color (test code = Light Yellow UA Color) *NA*(07/22/14 1:46 PM) [facility] [id number] 18:46:00 Test Item Value Reference Range Interpretation Comments Magnesium Lvl (test code = Magnesium 1.8 1.8-2.4 Lvl) [facility] HospitalXyefwnzZSMHXYGFNPJW3157-97-81 18:46:00 Test Item Value Reference Range Interpretation Comments AGAP (test code = AGAP) 13.2 10.0-20.0 [facility] HospitalIoiowmsAZHTKUNQJQMX5299-28-22 18:46:00 Test Item Value Reference Range Interpretation Comments B/C Ratio (test code = B/C Ratio) 18 6-25 [facility] HospitalHsnukprBRHBAWPWHELO3279-62-05 18:46:00 Test Item Value Reference Range Interpretation Comments A/G Ratio (test code = A/G Ratio) 1.1 0.7-1.6 [facility] HospitalCzqcgudITIRQVSQVXKN5752-24-70 18:46:00 Test Item Value Reference Range Interpretation Comments Globulin (test code = Globulin) 3.3 2.0-4.0 [facility] HospitalOwvryofOYTTBVSSXUUQ1187-16-26 18:46:00 Test Item Value Reference Range Interpretation Comments eGFR (test code = eGFR) 99 [facility] HospitalWcbumatBHVQFMCWUXDO1213-13-38 18:46:00 Test Item Value Reference Range Interpretation Comments Calcium Lvl (test code = Calcium Lvl) 9.0 8.5-10.5 [facility] HospitalHzpcikrVIFQZZGHYDJV5020-84-58 18:46:00 Test Item Value Reference Range Interpretation Comments Chloride Lvl (test code = Chloride Lvl) 106 95-109 [facility] HospitalYienxogEMASTPKRAOOD2725-92-62 18:46:00 Test Item Value Reference Range Interpretation Comments Creatinine Lvl (test code = Creatinine 0.9 0.5-1.4 Lvl) [facility] HospitalIxjjhybONVYJLPKDDRQ8198-64-75 18:46:00 Test Item Value Reference Range Interpretation Comments Potassium Lvl (test code = Potassium 4.2 3.5-5.1 Lvl) [facility] HospitalVaktwolWFXZZUDYJADH1366-85-18 18:46:00 Test Item Value Reference Range Interpretation Comments Sodium Lvl (test code = Sodium Lvl) 139 135-145 [facility] HospitalQisxrhlMRUZYEDAOQYN7290-44-89 18:46:00 Test Item Value Reference Range Interpretation Comments CO2 (test code = CO2) 24 24-32 [facility] HospitalXylecrzCBXWIGAOAWAQ7087-49-71 18:46:00 Test Item Value Reference Range Interpretation Comments BUN (test code = BUN) 16 7-22 [facility] HospitalOdupwtoYJYTFUQWMNEN4823-12-19 18:46:00 Test Item Value Reference Range Interpretation Comments Glucose Lvl (test code = Glucose Lvl) 141 70-99 [facility] HospitalMzzcxqiGUCWLGZFGADN0194-58-17 18:46:00 Test Item Value Reference Range Interpretation Comments Albumin Lvl (test code = Albumin Lvl) 3.6 3.5-5.0 [facility] HospitalTunihexXLATBMSTDAZO9144-57-34 18:46:00 Test Item Value Reference Range Interpretation Comments Alk Phos (test code = Alk Phos) 65 39-136 [facility] HospitalWvmhnbxHEQFSUHQDFRR3526-58-62 18:46:00 Test Item Value Reference Range Interpretation Comments Bili Total (test code = Bili Total) 0.3 0.2-1.3 [facility] HospitalNnkfvbqLSUVXKKDERLQ5639-95-01 18:46:00 Test Item Value Reference Range Interpretation Comments ALT (test code = ALT) 100 See_Comment [Auto mated message] The system which ge nerated this result transmit elizabeth reference range : <=65. The reference range was not used to interpr et this result as margaret l/abnormal. [facility] HospitalHkyukoqGJAYUDETMKMG6111-43-79 18:46:00 Test Item Value Reference Range Interpretation Comments AST (test code = AST) 53 See_Comment [Auto mated message] The system which ge nerated this result transmit elizabeth reference range : <=37. The reference range was not used to interpr et this result as margaret l/abnormal. [facility] HospitalMlcqsoeOTMACVFPTLRF6936-25-96 18:46:00 Test Item Value Reference Range Interpretation Comments Total Protein (test code = Total 6.9 6.4-8.4 Protein) [facility]WrrbeuwIAYUNYSVLP6577-65-61 18:46:00 Test Item Value Reference Range Interpretation Comments Eosinophils (test code = 4.2 See_Comment [A utomated message] The Eosinophils) system which ge nerated this result tra nsmitted reference range : <=4.0. The reference r mitra was not used to int erpret this result as normal/abnormal . [facility]burgHhvhowkJOLMQXNUZS3947-56-09 18:46:00 Test Item Value Reference Range Interpretation Comments Segs (test code = Segs) 56.4 45.0-75.0 [facility]burgEgkixbjTHXIQEDLTS0781-77-46 18:46:00 Test Item Value Reference Range Interpretation Comments Monocytes (test code = Monocytes) 10.3 2.0-12.0 [facility]burgXgarcjzTIJXGJPWTS3673-59-88 18:46:00 Test Item Value Reference Range Interpretation Comments Lymphocytes (test code = Lymphocytes) 28.0 20.0-40.0 [facility]burgZigdgslZCOVYQKBGZ7497-40-12 18:46:00 Test Item Value Reference Range Interpretation Comments Monocytes # (test code 0.5 See_Comment [Aut omated message] The = Monocytes #) system which generated this result tra nsmitted reference range : <=0.8. The reference r mitra was not used to int erpret this result as normal/abnormal . [facility]burgHxgnjllUDMRNRCISL8496-48-47 18:46:00 Test Item Value Reference Range Interpretation Comments Basophils (test code = 1.1 See_Comment [Aut omated message] The Basophils) system which ge nerated this result tra nsmitted reference range : <=1.0. The reference r mitra was not used to int erpret this result as normal/abnormal . [facility]burgLlqzaimGHDCKTRUVR4409-04-44 18:46:00 Test Item Value Reference Range Interpretation Comments Lymphocytes # (test code = Lymphocytes 1.5 1.0-5.5 #) [facility]YwmgngyZFQEZBXMJE2391-16-05 18:46:00 Test Item Value Reference Range Interpretation Comments Segs-Bands # (test code = Segs-Bands #) 2.9 1.5-8.1 [facility]burgQbzxuclURBARLLPXK2449-58-97 18:46:00 Test Item Value Reference Range Interpretation Comments Eosinophils # (test code 0.2 See_Comment [A utomated message] The = Eosinophils #) system whic h generated this result tra nsmitted reference range : <=0.5. The reference r mitra was not used to int erpret this result as normal/abnormal . [facility]burgBqqpualKVJXAPEYWV2045-46-86 18:46:00 Test Item Value Reference Range Interpretation Comments Basophils # (test code 0.1 See_Comment [Aut omated message] The = Basophils #) system which generated this result tra nsmitted reference range : <=0.2. The reference r mitra was not used to int erpret this result as normal/abnormal . [facility]burgBtyhihjKDMSYXYULO0376-91-64 18:46:00 Test Item Value Reference Range Interpretation Comments PT (test code = PT) 11.2 s 12.0-14.7 [facility]burgHrvvpunIRVQJSPZEF7222-44-04 18:46:00 Test Item Value Reference Range Interpretation Comments INR (test code = INR) 0.82 0.85-1.17 [facility]burgOoezvxiQOWUFDGPJZ1316-18-93 18:46:00 Test Item Value Reference Range Interpretation Comments PTT (test code = PTT) 28.6 s 22.9-35.8 [facility]burgMwxehnkYHSVYCLNEY8516-00-72 18:46:00 Test Item Value Reference Range Interpretation Comments MPV (test code = MPV) 8.1 7.4-10.4 [facility]burgXqideujNZAAWQBALV4775-28-61 18:46:00 Test Item Value Reference Range Interpretation Comments Platelet (test code = Platelet) 301 133-450 [facility]burgFiyobocKVZGILQXGQ3961-02-99 18:46:00 Test Item Value Reference Range Interpretation Comments RDW (test code = RDW) 14.5 11.5-14.5 [facility]burgSstfzncTWWFLHDNMX0977-69-42 18:46:00 Test Item Value Reference Range Interpretation Comments RBC (test code = RBC) 4.84 4.70-6.10 [facility]burgLscavvqUDTLIMIYBB9317-46-27 18:46:00 Test Item Value Reference Range Interpretation Comments Hgb (test code = Hgb) 14.4 14.0-18.0 [facility]burgSjshvlwRIVJCZKBEO1756-67-04 18:46:00 Test Item Value Reference Range Interpretation Comments WBC (test code = WBC) 5.2 3.7-10.4 [facility]burgJfyaewnYVNEBLENPR0189-07-45 18:46:00 Test Item Value Reference Range Interpretation Comments MCH (test code = MCH) 29.8 pg 27.0-31.0 [facility]burgYeticcrIRYGSQCXOP2673-48-18 18:46:00 Test Item Value Reference Range Interpretation Comments MCV (test code = MCV) 92.0 80.0-94.0 [facility]WnbnortYSJYQDPTVQ0445-22-25 18:46:00 Test Item Value Reference Range Interpretation Comments Hct (test code = Hct) 44.5 42.0-54.0 [facility]TniqfpkMPFXXGMDBM1993-98-81 18:46:00 Test Item Value Reference Range Interpretation Comments MCHC (test code = MCHC) 32.4 32.0-36.0 [facility]JfobpjuAIHIUAZBAI1931-60-04 18:46:00 Test Item Value Reference Range Interpretation Comments Elroy-Hep C Ab (test Negative *NA*(07/22/14 code = Elroy-Hep C 1:46 PM) Ab) [facility] AND [id number] 18:46:00 Test Item Value Reference Range Interpretation Comments UA Urobilinogen (test code = UA <=1.0 mg/dL 0.1-1.0 Urobilinogen) [facility] AND [id number] 18:46:00 Test Item Value Reference Range Interpretation Comments UA Sq Epi (test code = UA Sq Epi) None Seen [facility] AND [id number] 18:46:00 Test Item Value Reference Range Interpretation Comments UA Leuk Est (test Negative (07/22/14 1:46 code = UA Leuk Est) PM) [facility] AND [id number] 18:46:00 Test Item Value Reference Range Interpretation Comments UA Nitrite (test code Negative (07/22/14 1:46 = UA Nitrite) PM) [facility] AND [id number] 18:46:00 Test Item Value Reference Range Interpretation Comments UA Blood (test code = Negative (07/22/14 1:46 UA Blood) PM) [facility] AND [id number] 18:46:00 Test Item Value Reference Range Interpretation Comments UA Ketones (test code = UA Negative mg/dL Ketones) [facility] AND [id number] 18:46:00 Test Item Value Reference Range Interpretation Comments UA Bili (test code = Negative *NA*(07/22/14 UA Bili) 1:46 PM) [facility] AND [id number] 18:46:00 Test Item Value Reference Range Interpretation Comments UA Bacteria (test code = UA Occasional /HPF Bacteria) [facility] AND [id number] 18:46:00 Test Item Value Reference Range Interpretation Comments UA RBC (test code = no gt See_Comment [Automa elizabeth message] The UA RBC) system which ge nerated this result transmit elizabeth reference range : <=2. The reference range was not used to interpr et this result as margaret l/abnormal. [facility] [id number] 18:46:00 Test Item Value Reference Range Interpretation Comments UA WBC (test code = 1 See_Comment [Automa elizabeth message] The UA WBC) system which ge nerated this result transmit elizabeth reference range : <=5. The reference range was not used to interpr et this result as margaret l/abnormal. [facility] [id number] 18:46:00 Test Item Value Reference Range Interpretation Comments UA Glucose (test code = UA Glucose) 30 mg/dL [facility] [id number] 18:46:00 Test Item Value Reference Range Interpretation Comments UA Protein (test code = UA Negative mg/dL Protein) [facility] [id number] 18:46:00 Test Item Value Reference Range Interpretation Comments UA pH (test code = UA pH) 6.5 5.0-8.0 [facility] [id number] 18:46:00 Test Item Value Reference Range Interpretation Comments UA Turbidity (test code = Clear (07/22/14 1:46 UA Turbidity) PM) [facility] [id number] 18:46:00 Test Item Value Reference Range Interpretation Comments UA Spec Grav (test code = UA Spec Grav) 1.010 [facility] [id number] 18:46:00 Test Item Value Reference Range Interpretation Comments UA Color (test code = Light Yellow UA Color) *NA*(07/22/14 1:46 PM) [facility] [id number] 18:46:00 Test Item Value Reference Range Interpretation Comments Magnesium Lvl (test code = Magnesium 1.8 1.8-2.4 Lvl) [facility] EjmagisCEFYWZWRVHAI9736-68-00 18:46:00 Test Item Value Reference Range Interpretation Comments AGAP (test code = AGAP) 13.2 10.0-20.0 [facility] AwpgdywVAMIZBQPAEOI5250-47-09 18:46:00 Test Item Value Reference Range Interpretation Comments B/C Ratio (test code = B/C Ratio) 18 6-25 [facility]AayflkgVQQXOYNSRUIO0754-35-75 18:46:00 Test Item Value Reference Range Interpretation Comments A/G Ratio (test code = A/G Ratio) 1.1 0.7-1.6 [facility] HospitalQbllxfpSJBBFMIMHZIX2076-21-45 18:46:00 Test Item Value Reference Range Interpretation Comments Globulin (test code = Globulin) 3.3 2.0-4.0 [facility] HospitalNtomufzMLTNXVKKMFNJ3185-03-65 18:46:00 Test Item Value Reference Range Interpretation Comments eGFR (test code = eGFR) 99 [facility] HospitalMciozqsFFCQIIMAOOXF6313-60-04 18:46:00 Test Item Value Reference Range Interpretation Comments Calcium Lvl (test code = Calcium Lvl) 9.0 8.5-10.5 [facility] HospitalYuldreaBMJLWSDDZIEU1523-47-95 18:46:00 Test Item Value Reference Range Interpretation Comments Chloride Lvl (test code = Chloride Lvl) 106 95-109 [facility] HospitalAopoaapUKRCJLKZYSCX6850-92-88 18:46:00 Test Item Value Reference Range Interpretation Comments Creatinine Lvl (test code = Creatinine 0.9 0.5-1.4 Lvl) [facility] HospitalLlnyrnkTZIMEIAIOBAM7378-55-16 18:46:00 Test Item Value Reference Range Interpretation Comments Potassium Lvl (test code = Potassium 4.2 3.5-5.1 Lvl) [facility] HospitalZxcxiklUEBOAHPZETJZ3093-37-21 18:46:00 Test Item Value Reference Range Interpretation Comments Sodium Lvl (test code = Sodium Lvl) 139 135-145 [facility] HospitalHhnebyrNEFYREJAUNQN1278-16-75 18:46:00 Test Item Value Reference Range Interpretation Comments CO2 (test code = CO2) 24 24-32 [facility] HospitalWetemsuCJEMZGTUZHPI3828-96-94 18:46:00 Test Item Value Reference Range Interpretation Comments BUN (test code = BUN) 16 7-22 [facility] HospitalTzqpcetMIOKSFSPQDCB6815-18-26 18:46:00 Test Item Value Reference Range Interpretation Comments Glucose Lvl (test code = Glucose Lvl) 141 70-99 [facility] HospitalTnykuawMMZNFRMFXGBW6963-64-31 18:46:00 Test Item Value Reference Range Interpretation Comments Albumin Lvl (test code = Albumin Lvl) 3.6 3.5-5.0 [facility] HospitalIalfvxhJWQCEDMCLIID1324-49-64 18:46:00 Test Item Value Reference Range Interpretation Comments Alk Phos (test code = Alk Phos) 65 39-136 [facility] HospitalNgzjvzwIUKOEHBMARCI4231-50-84 18:46:00 Test Item Value Reference Range Interpretation Comments Bili Total (test code = Bili Total) 0.3 0.2-1.3 [facility] HospitalPxttgduEFZFDHNBBJTF4357-98-25 18:46:00 Test Item Value Reference Range Interpretation Comments ALT (test code = ALT) 100 See_Comment [Auto mated message] The system which ge nerated this result transmit elizabeth reference range : <=65. The reference range was not used to interpr et this result as margaret l/abnormal. [facility] HospitalIemaqfzMPNSTBCMPAWA3444-94-56 18:46:00 Test Item Value Reference Range Interpretation Comments AST (test code = AST) 53 See_Comment [Auto mated message] The system which ge nerated this result transmit elizabeth reference range : <=37. The reference range was not used to interpr et this result as margaret l/abnormal. [facility] HospitalHmpexdiUAHZQSHOFKKR6118-89-29 18:46:00 Test Item Value Reference Range Interpretation Comments Total Protein (test code = Total 6.9 6.4-8.4 Protein) [facility]OynshrlZSDOLBLOWO6011-03-28 18:46:00 Test Item Value Reference Range Interpretation Comments Eosinophils (test code = 4.2 See_Comment [A utomated message] The Eosinophils) system which ge nerated this result tra nsmitted reference range : <=4.0. The reference r mitra was not used to int erpret this result as normal/abnormal . [facility]burgZkmrnmcHPCXTFHEDT3942-50-80 18:46:00 Test Item Value Reference Range Interpretation Comments Segs (test code = Segs) 56.4 45.0-75.0 [facility]burgXbkcpapCNDWLSFPVH9035-88-41 18:46:00 Test Item Value Reference Range Interpretation Comments Monocytes (test code = Monocytes) 10.3 2.0-12.0 [facility]burgSlurhzfOBWQBZNAFK4124-64-16 18:46:00 Test Item Value Reference Range Interpretation Comments Lymphocytes (test code = Lymphocytes) 28.0 20.0-40.0 [facility]burgVjmhrdeWGLJYVCTCA0775-71-64 18:46:00 Test Item Value Reference Range Interpretation Comments Monocytes # (test code 0.5 See_Comment [Aut omated message] The = Monocytes #) system which generated this result tra nsmitted reference range : <=0.8. The reference r mitra was not used to int erpret this result as normal/abnormal . [facility]burgGkfrtneBGGNWFXZMC7874-88-42 18:46:00 Test Item Value Reference Range Interpretation Comments Basophils (test code = 1.1 See_Comment [Aut omated message] The Basophils) system which ge nerated this result tra nsmitted reference range : <=1.0. The reference r mitra was not used to int erpret this result as normal/abnormal . [facility]burgKndkfcgINIEHQROOJ0654-50-24 18:46:00 Test Item Value Reference Range Interpretation Comments Lymphocytes # (test code = Lymphocytes 1.5 1.0-5.5 #) [facility]burgLvvptmjROXERRWPUN9098-32-48 18:46:00 Test Item Value Reference Range Interpretation Comments Segs-Bands # (test code = Segs-Bands #) 2.9 1.5-8.1 [facility]burgSefcazpSQXBKHVMQB2756-38-94 18:46:00 Test Item Value Reference Range Interpretation Comments Eosinophils # (test code 0.2 See_Comment [A utomated message] The = Eosinophils #) system whic h generated this result tra nsmitted reference range : <=0.5. The reference r mitra was not used to int erpret this result as normal/abnormal . [facility]burgVzafaxrGYNTUCAIKB4232-18-92 18:46:00 Test Item Value Reference Range Interpretation Comments Basophils # (test code 0.1 See_Comment [Aut omated message] The = Basophils #) system which generated this result tra nsmitted reference range : <=0.2. The reference r mitra was not used to int erpret this result as normal/abnormal . [facility]burgLdhlyqrUOLDHJSQXJ0952-47-45 18:46:00 Test Item Value Reference Range Interpretation Comments PT (test code = PT) 11.2 s 12.0-14.7 [facility]burgAebbdmdLVUEEDQIYX1562-02-90 18:46:00 Test Item Value Reference Range Interpretation Comments INR (test code = INR) 0.82 0.85-1.17 [facility]burgIvzdqadPLKDBVFMNX0820-59-21 18:46:00 Test Item Value Reference Range Interpretation Comments PTT (test code = PTT) 28.6 s 22.9-35.8 [facility]burgCnfwzgeRSKPBIHPDQ0372-70-93 18:46:00 Test Item Value Reference Range Interpretation Comments MPV (test code = MPV) 8.1 7.4-10.4 [facility]burgBhtdawmHRGUKRCLSA0393-68-33 18:46:00 Test Item Value Reference Range Interpretation Comments Platelet (test code = Platelet) 301 133-450 [facility]burgByrugezCSGSTZSVRO8537-38-62 18:46:00 Test Item Value Reference Range Interpretation Comments RDW (test code = RDW) 14.5 11.5-14.5 [facility]burgLwdhlivLKUWPGVPWB1345-45-92 18:46:00 Test Item Value Reference Range Interpretation Comments RBC (test code = RBC) 4.84 4.70-6.10 [facility]burgMibemjtODGJFJQLTO0759-24-89 18:46:00 Test Item Value Reference Range Interpretation Comments Hgb (test code = Hgb) 14.4 14.0-18.0 [facility]burgPfhfldtTGMVKKHVXH0658-08-67 18:46:00 Test Item Value Reference Range Interpretation Comments WBC (test code = WBC) 5.2 3.7-10.4 [facility]burgSfzcvtpJIONQCAHMI4582-97-73 18:46:00 Test Item Value Reference Range Interpretation Comments MCH (test code = MCH) 29.8 pg 27.0-31.0 [facility]burgEscwjypUZQJRNNYDH2367-24-77 18:46:00 Test Item Value Reference Range Interpretation Comments MCV (test code = MCV) 92.0 80.0-94.0 [facility]burgFbbpfmjQIFSEYJUIS3485-92-10 18:46:00 Test Item Value Reference Range Interpretation Comments Hct (test code = Hct) 44.5 42.0-54.0 [facility]burgYlbfxuhFONQOYAMTS7988-17-59 18:46:00 Test Item Value Reference Range Interpretation Comments MCHC (test code = MCHC) 32.4 32.0-36.0 [facility]BUODU8073-[facility] 18:46:00 Test Item Value Reference Range Interpretation Comments Elroy-Hep C Ab (test Negative *NA*(07/22/14 code = Elroy-Hep C 1:46 PM) Ab) [facility] AND [id number] 18:46:00 Test Item Value Reference Range Interpretation Comments UA Urobilinogen (test code = UA <=1.0 mg/dL 0.1-1.0 Urobilinogen) [facility] AND [id number] 18:46:00 Test Item Value Reference Range Interpretation Comments UA Sq Epi (test code = UA Sq Epi) None Seen [facility] AND [id number] 18:46:00 Test Item Value Reference Range Interpretation Comments UA Leuk Est (test Negative (07/22/14 1:46 code = UA Leuk Est) PM) [facility] AND [id number] 18:46:00 Test Item Value Reference Range Interpretation Comments UA Nitrite (test code Negative (07/22/14 1:46 = UA Nitrite) PM) [facility] AND [id number] 18:46:00 Test Item Value Reference Range Interpretation Comments UA Blood (test code = Negative (07/22/14 1:46 UA Blood) PM) [facility] AND [id number] 18:46:00 Test Item Value Reference Range Interpretation Comments UA Ketones (test code = UA Negative mg/dL Ketones) [facility] AND [id number] 18:46:00 Test Item Value Reference Range Interpretation Comments UA Bili (test code = Negative *NA*(07/22/14 UA Bili) 1:46 PM) [facility] AND [id number] 18:46:00 Test Item Value Reference Range Interpretation Comments UA Bacteria (test code = UA Occasional /HPF Bacteria) [facility] AND [id number] 18:46:00 Test Item Value Reference Range Interpretation Comments UA RBC (test code = no gt See_Comment [Automa elizabeth message] The UA RBC) system which ge nerated this result transmit elizabeth reference range : <=2. The reference range was not used to interpr et this result as margaret l/abnormal. [facility] AND [id number] 18:46:00 Test Item Value Reference Range Interpretation Comments UA WBC (test code = 1 See_Comment [Automa elizabeth message] The UA WBC) system which ge nerated this result transmit elizabeth reference range : <=5. The reference range was not used to interpr et this result as margaret l/abnormal. [facility] AND [id number] 18:46:00 Test Item Value Reference Range Interpretation Comments UA Glucose (test code = UA Glucose) 30 mg/dL [facility] AND [id number] 18:46:00 Test Item Value Reference Range Interpretation Comments UA Protein (test code = UA Negative mg/dL Protein) [facility] AND [id number] 18:46:00 Test Item Value Reference Range Interpretation Comments UA pH (test code = UA pH) 6.5 5.0-8.0 [facility] AND [id number] 18:46:00 Test Item Value Reference Range Interpretation Comments UA Turbidity (test code = Clear (07/22/14 1:46 UA Turbidity) PM) [facility] AND [id number] 18:46:00 Test Item Value Reference Range Interpretation Comments UA Spec Grav (test code = UA Spec Grav) 1.010 [facility] AND [id number] 18:46:00 Test Item Value Reference Range Interpretation Comments UA Color (test code = Light Yellow UA Color) *NA*(07/22/14 1:46 PM) [facility] [id number] 18:46:00 Test Item Value Reference Range Interpretation Comments Magnesium Lvl (test code = Magnesium 1.8 1.8-2.4 Lvl) [facility]GudnblvRKQCHVWWNNDW2796-39-81 18:46:00 Test Item Value Reference Range Interpretation Comments AGAP (test code = AGAP) 13.2 10.0-20.0 [facility] HospitalJehfwblXLFZRCGMDMWK7986-15-17 18:46:00 Test Item Value Reference Range Interpretation Comments B/C Ratio (test code = B/C Ratio) 18 6-25 [facility] HospitalDgpuxwrUIMVNAUHDXOL9312-92-52 18:46:00 Test Item Value Reference Range Interpretation Comments A/G Ratio (test code = A/G Ratio) 1.1 0.7-1.6 [facility] HospitalUpbjimfVFNGNVQXCUAB7453-25-61 18:46:00 Test Item Value Reference Range Interpretation Comments Globulin (test code = Globulin) 3.3 2.0-4.0 [facility] HospitalGtcxszrJXIYVEVTMKGX9859-16-91 18:46:00 Test Item Value Reference Range Interpretation Comments eGFR (test code = eGFR) 99 [facility] HospitalAdszmxcROTJXTABAKKD3234-80-99 18:46:00 Test Item Value Reference Range Interpretation Comments Calcium Lvl (test code = Calcium Lvl) 9.0 8.5-10.5 [facility] HospitalTgqpyqcMDQTEDBZOATM1635-06-72 18:46:00 Test Item Value Reference Range Interpretation Comments Chloride Lvl (test code = Chloride Lvl) 106 95-109 [facility] HospitalMqppokkRFECIQOFFTYS6787-70-59 18:46:00 Test Item Value Reference Range Interpretation Comments Creatinine Lvl (test code = Creatinine 0.9 0.5-1.4 Lvl) [facility] HospitalHkmjiulTXQDVQHQQIGN6482-50-50 18:46:00 Test Item Value Reference Range Interpretation Comments Potassium Lvl (test code = Potassium 4.2 3.5-5.1 Lvl) [facility] HospitalLkmlvucQFEJXNIRNBBG1513-11-23 18:46:00 Test Item Value Reference Range Interpretation Comments Sodium Lvl (test code = Sodium Lvl) 139 135-145 [facility] HospitalZbhemvdNPGEHCLVOXSF9587-92-48 18:46:00 Test Item Value Reference Range Interpretation Comments CO2 (test code = CO2) 24 24-32 [facility] HospitalTfwtrqcPZEVIKGOQPFX0487-04-24 18:46:00 Test Item Value Reference Range Interpretation Comments BUN (test code = BUN) 16 7-22 [facility] HospitalKspuidjJRYXYUUXDAQW5614-77-67 18:46:00 Test Item Value Reference Range Interpretation Comments Glucose Lvl (test code = Glucose Lvl) 141 70-99 [facility] HospitalNaxktqhXRQIWFCRFOPW8619-59-27 18:46:00 Test Item Value Reference Range Interpretation Comments Albumin Lvl (test code = Albumin Lvl) 3.6 3.5-5.0 [facility] HospitalFkqomogABZAZWXDGCIR2210-15-14 18:46:00 Test Item Value Reference Range Interpretation Comments Alk Phos (test code = Alk Phos) 65 39-136 [facility] HospitalIzmjgulKYFKWGRFQRQW7237-11-59 18:46:00 Test Item Value Reference Range Interpretation Comments Bili Total (test code = Bili Total) 0.3 0.2-1.3 [facility] HospitalOdlzjwzVOPXECVVKCBR5586-99-36 18:46:00 Test Item Value Reference Range Interpretation Comments ALT (test code = ALT) 100 See_Comment [Auto mated message] The system which ge nerated this result transmit elizabeth reference range : <=65. The reference range was not used to interpr et this result as margaret l/abnormal. [facility] HospitalVwfoiedMAHRFRASEJNG7271-71-13 18:46:00 Test Item Value Reference Range Interpretation Comments AST (test code = AST) 53 See_Comment [Auto mated message] The system which ge nerated this result transmit elizabeth reference range : <=37. The reference range was not used to interpr et this result as margaret l/abnormal. [facility] HospitalVwvjqszBIXMRKIITPXT4876-57-23 18:46:00 Test Item Value Reference Range Interpretation Comments Total Protein (test code = Total 6.9 6.4-8.4 Protein) [facility]burgQtkddouCBUIASJKMZ6555-48-81 18:46:00 Test Item Value Reference Range Interpretation Comments Eosinophils (test code = 4.2 See_Comment [A utomated message] The Eosinophils) system which ge nerated this result tra nsmitted reference range : <=4.0. The reference r mitra was not used to int erpret this result as normal/abnormal . [facility]inburgLagzlarFELAQZLIWL6056-57-37 18:46:00 Test Item Value Reference Range Interpretation Comments Segs (test code = Segs) 56.4 45.0-75.0 [facility]burgJxmwlepKCBPZCLQCX5095-28-84 18:46:00 Test Item Value Reference Range Interpretation Comments Monocytes (test code = Monocytes) 10.3 2.0-12.0 [facility]burgOvmvdzjYVSSWTHGPM5387-40-61 18:46:00 Test Item Value Reference Range Interpretation Comments Lymphocytes (test code = Lymphocytes) 28.0 20.0-40.0 [facility]burgTxmtfvlXTLKRTAVRA4101-30-77 18:46:00 Test Item Value Reference Range Interpretation Comments Monocytes # (test code 0.5 See_Comment [Aut omated message] The = Monocytes #) system which generated this result tra nsmitted reference range : <=0.8. The reference r mitra was not used to int erpret this result as normal/abnormal . [facility]burgOysiuouOPVLGLHFLE3428-69-38 18:46:00 Test Item Value Reference Range Interpretation Comments Basophils (test code = 1.1 See_Comment [Aut omated message] The Basophils) system which ge nerated this result tra nsmitted reference range : <=1.0. The reference r mitra was not used to int erpret this result as normal/abnormal . [facility]inburgUcifignUTLNYVTROC2733-08-85 18:46:00 Test Item Value Reference Range Interpretation Comments Lymphocytes # (test code = Lymphocytes 1.5 1.0-5.5 #) [facility]burgEajaizrXIZPBPRVZY9897-07-51 18:46:00 Test Item Value Reference Range Interpretation Comments Segs-Bands # (test code = Segs-Bands #) 2.9 1.5-8.1 [facility]burgGiaqichRYJIRHUZTN2892-06-67 18:46:00 Test Item Value Reference Range Interpretation Comments Eosinophils # (test code 0.2 See_Comment [A utomated message] The = Eosinophils #) system whic h generated this result tra nsmitted reference range : <=0.5. The reference r mitra was not used to int erpret this result as normal/abnormal . [facility]burgZlhwfdtKKOTASJQKI0829-99-76 18:46:00 Test Item Value Reference Range Interpretation Comments Basophils # (test code 0.1 See_Comment [Aut omated message] The = Basophils #) system which generated this result tra nsmitted reference range : <=0.2. The reference r mitra was not used to int erpret this result as normal/abnormal . [facility]burgBmcsqvlGSRATKQEKI9641-28-86 18:46:00 Test Item Value Reference Range Interpretation Comments PT (test code = PT) 11.2 s 12.0-14.7 [facility]burgUwqxckeXUVDAEXAUC8934-16-48 18:46:00 Test Item Value Reference Range Interpretation Comments INR (test code = INR) 0.82 0.85-1.17 [facility]burgNnuwgerZCVPZCVUUR1162-21-63 18:46:00 Test Item Value Reference Range Interpretation Comments PTT (test code = PTT) 28.6 s 22.9-35.8 [facility]burgIinayrpDJKGJKVWWR1761-21-61 18:46:00 Test Item Value Reference Range Interpretation Comments MPV (test code = MPV) 8.1 7.4-10.4 [facility]burgGxptdzsFBOQBWSZFF8303-79-83 18:46:00 Test Item Value Reference Range Interpretation Comments Platelet (test code = Platelet) 301 133-450 [facility]burgIbrdkmiLKYZTTFMDQ4140-83-00 18:46:00 Test Item Value Reference Range Interpretation Comments RDW (test code = RDW) 14.5 11.5-14.5 [facility]KlxjkeqOSABWLVXWG8842-62-35 18:46:00 Test Item Value Reference Range Interpretation Comments RBC (test code = RBC) 4.84 4.70-6.10 [facility]djejlxGRQAMEWMFO6221-59-25 18:46:00 Test Item Value Reference Range Interpretation Comments Hgb (test code = Hgb) 14.4 14.0-18.0 [facility] HospitalPvrxyohDIIDYHTVMT2648-67-54 18:46:00 Test Item Value Reference Range Interpretation Comments WBC (test code = WBC) 5.2 3.7-10.4 [facility] HospitalGjlnxyxXPQMGSIAXP5002-86-69 18:46:00 Test Item Value Reference Range Interpretation Comments MCH (test code = MCH) 29.8 pg 27.0-31.0 [facility]burgImbgjenBBXJYCLOTW2441-18-01 18:46:00 Test Item Value Reference Range Interpretation Comments MCV (test code = MCV) 92.0 80.0-94.0 [facility] HospitalNnezewqONSORDZCNJ4542-06-24 18:46:00 Test Item Value Reference Range Interpretation Comments Hct (test code = Hct) 44.5 42.0-54.0 [facility]CthtmxoSCVPJDCYLN7247-49-95 18:46:00 Test Item Value Reference Range Interpretation Comments MCHC (test code = MCHC) 32.4 32.0-36.0 [facility] HendersonKtyqkwlJASNTIJPPU6471-26-79 18:46:00 Test Item Value Reference Range Interpretation Comments Elroy-Hep C Ab (test Negative *NA*(07/22/14 code = Elroy-Hep C 1:46 PM) Ab) [facility] AND [id number] 18:46:00 Test Item Value Reference Range Interpretation Comments UA Urobilinogen (test code = UA <=1.0 mg/dL 0.1-1.0 Urobilinogen) [facility] [id number] 18:46:00 Test Item Value Reference Range Interpretation Comments UA Sq Epi (test code = UA Sq Epi) None [facility]en [facility] [id number] 18:46:00 Test Item Value Reference Range Interpretation Comments UA Leuk Est (test Negative (07/22/14 1:46 code = UA Leuk Est) PM) [facility] AND [id number] 18:46:00 Test Item Value Reference Range Interpretation Comments UA Nitrite (test code Negative (07/22/14 1:46 = UA Nitrite) PM) [facility] AND [id number] 18:46:00 Test Item Value Reference Range Interpretation Comments UA Blood (test code = Negative (07/22/14 1:46 UA Blood) PM) [facility] AND [id number] 18:46:00 Test Item Value Reference Range Interpretation Comments UA Ketones (test code = UA Negative mg/dL Ketones) [facility] AND [id number] 18:46:00 Test Item Value Reference Range Interpretation Comments UA Bili (test code = Negative *NA*(07/22/14 UA Bili) 1:46 PM) [facility] AND [id number] 18:46:00 Test Item Value Reference Range Interpretation Comments UA Bacteria (test code = UA Occasional /HPF Bacteria) [facility] AND [id number] 18:46:00 Test Item Value Reference Range Interpretation Comments UA RBC (test code = no gt See_Comment [Automa elizabeth message] The UA RBC) system which ge nerated this result transmit elizabeth reference range : <=2. The reference range was not used to interpr et this result as margaret l/abnormal. [facility] AND [id number] 18:46:00 Test Item Value Reference Range Interpretation Comments UA WBC (test code = 1 See_Comment [Automa elizabeth message] The UA WBC) system which ge nerated this result transmit elizabeth reference range : <=5. The reference range was not used to interpr et this result as margaret l/abnormal. [facility] AND [id number] 18:46:00 Test Item Value Reference Range Interpretation Comments UA Glucose (test code = UA Glucose) 30 mg/dL [facility] AND [id number] 18:46:00 Test Item Value Reference Range Interpretation Comments UA Protein (test code = UA Negative mg/dL Protein) [facility] AND [id number] 18:46:00 Test Item Value Reference Range Interpretation Comments UA pH (test code = UA pH) 6.5 5.0-8.0 [facility] AND [id number] 18:46:00 Test Item Value Reference Range Interpretation Comments UA Turbidity (test code = Clear (07/22/14 1:46 UA Turbidity) PM) [facility] AND [id number] 18:46:00 Test Item Value Reference Range Interpretation Comments UA Spec Grav (test code = UA Spec Grav) 1.010 [facility] [id number] 18:46:00 Test Item Value Reference Range Interpretation Comments UA Color (test code = Light Yellow UA Color) *NA*(07/22/14 1:46 PM) [facility] CrissannCHEM [id number] 18:46:00 Test Item Value Reference Range Interpretation Comments Magnesium Lvl (test code = Magnesium 1.8 1.8-2.4 Lvl) [facility]dyODASUVHRPXGH9621-75-08 18:46:00 Test Item Value Reference Range Interpretation Comments AGAP (test code = AGAP) 13.2 10.0-20.0 [facility] HospitalPzcicpvFYUSZTNHUFZH7739-76-39 18:46:00 Test Item Value Reference Range Interpretation Comments B/C Ratio (test code = B/C Ratio) 18 6-25 [facility] HospitalMydecplSTVUMSBGCEFV9912-78-91 18:46:00 Test Item Value Reference Range Interpretation Comments A/G Ratio (test code = A/G Ratio) 1.1 0.7-1.6 [facility] HospitalWiqxronBCQBPNAMGCTQ1442-22-24 18:46:00 Test Item Value Reference Range Interpretation Comments Globulin (test code = Globulin) 3.3 2.0-4.0 [facility] HospitalOtxydsoGFGTOFRBDLCG8506-23-34 18:46:00 Test Item Value Reference Range Interpretation Comments eGFR (test code = eGFR) 99 [facility] HospitalZfdzbpcGFUDTNBVGZGS9026-45-39 18:46:00 Test Item Value Reference Range Interpretation Comments Calcium Lvl (test code = Calcium Lvl) 9.0 8.5-10.5 [facility] HospitalDoldqzxIOETNIYKVDPM8721-39-91 18:46:00 Test Item Value Reference Range Interpretation Comments Chloride Lvl (test code = Chloride Lvl) 106 95-109 [facility] HospitalNdgqfcxPIVRWJZVNQVQ5561-89-28 18:46:00 Test Item Value Reference Range Interpretation Comments Creatinine Lvl (test code = Creatinine 0.9 0.5-1.4 Lvl) [facility] HospitalLetigveZXMMHXCAZRIZ2923-15-01 18:46:00 Test Item Value Reference Range Interpretation Comments Potassium Lvl (test code = Potassium 4.2 3.5-5.1 Lvl) [facility] HospitalWncorctXPGAVRZGUHJF6863-16-39 18:46:00 Test Item Value Reference Range Interpretation Comments Sodium Lvl (test code = Sodium Lvl) 139 135-145 [facility] HospitalMoiueqqMEBNHFCAYEOQ0982-11-45 18:46:00 Test Item Value Reference Range Interpretation Comments CO2 (test code = CO2) 24 24-32 [facility] HospitalHpbcdgfIRLLFERPHONS2655-40-15 18:46:00 Test Item Value Reference Range Interpretation Comments BUN (test code = BUN) 16 7-22 [facility] HospitalBsfddciYPOCXGUUJPMK2559-00-06 18:46:00 Test Item Value Reference Range Interpretation Comments Glucose Lvl (test code = Glucose Lvl) 141 70-99 [facility] HospitalFaeinwrGXVQQVSZZEZM1860-72-42 18:46:00 Test Item Value Reference Range Interpretation Comments Albumin Lvl (test code = Albumin Lvl) 3.6 3.5-5.0 [facility] HospitalIkfrazhYPZIKPQYSUQG6314-12-77 18:46:00 Test Item Value Reference Range Interpretation Comments Alk Phos (test code = Alk Phos) 65 39-136 [facility] HospitalItdngxfVWTEPMTMXDPC4644-08-98 18:46:00 Test Item Value Reference Range Interpretation Comments Bili Total (test code = Bili Total) 0.3 0.2-1.3 [facility] HospitalKvgipucTASBEZTZQWTR4740-21-16 18:46:00 Test Item Value Reference Range Interpretation Comments ALT (test code = ALT) 100 See_Comment [Auto mated message] The system which ge nerated this result transmit elizabeth reference range : <=65. The reference range was not used to interpr et this result as margaret l/abnormal. [facility] HospitalIvexcaoIUUHPABRSFYE3175-14-10 18:46:00 Test Item Value Reference Range Interpretation Comments AST (test code = AST) 53 See_Comment [Auto mated message] The system which ge nerated this result transmit elizabeth reference range : <=37. The reference range was not used to interpr et this result as margaret l/abnormal. [facility] HospitalIlkhjkaQBWGXOSDZHIZ2258-12-56 18:46:00 Test Item Value Reference Range Interpretation Comments Total Protein (test code = Total 6.9 6.4-8.4 Protein) [facility]AcnkzyzNUEJLYDRZN2081-72-04 18:46:00 Test Item Value Reference Range Interpretation Comments Eosinophils (test code = 4.2 See_Comment [A utomated message] The Eosinophils) system which ge nerated this result tra nsmitted reference range : <=4.0. The reference r mitra was not used to int erpret this result as normal/abnormal . [facility]burgRsnekosTRQYQZYIIW5609-82-08 18:46:00 Test Item Value Reference Range Interpretation Comments Segs (test code = Segs) 56.4 45.0-75.0 [facility]burgYnxwswlQPDGVNJQWJ5982-16-50 18:46:00 Test Item Value Reference Range Interpretation Comments Monocytes (test code = Monocytes) 10.3 2.0-12.0 [facility]burgFpqyyhpOWACDOMPQH6431-87-76 18:46:00 Test Item Value Reference Range Interpretation Comments Lymphocytes (test code = Lymphocytes) 28.0 20.0-40.0 [facility]burgHzzobmoBTVNFCZUSJ2971-83-76 18:46:00 Test Item Value Reference Range Interpretation Comments Monocytes # (test code 0.5 See_Comment [Aut omated message] The = Monocytes #) system which generated this result tra nsmitted reference range : <=0.8. The reference r mitra was not used to int erpret this result as normal/abnormal . [facility]burgHvhsnrlDFFGISHYXS8364-47-65 18:46:00 Test Item Value Reference Range Interpretation Comments Basophils (test code = 1.1 See_Comment [Aut omated message] The Basophils) system which ge nerated this result tra nsmitted reference range : <=1.0. The reference r mitra was not used to int erpret this result as normal/abnormal . [facility]burgSuobquwANQMJUGBIG1447-80-06 18:46:00 Test Item Value Reference Range Interpretation Comments Lymphocytes # (test code = Lymphocytes 1.5 1.0-5.5 #) [facility]burgJeyzbfsBGZDCURMTH7529-84-15 18:46:00 Test Item Value Reference Range Interpretation Comments Segs-Bands # (test code = Segs-Bands #) 2.9 1.5-8.1 [facility]burgFgocjqyEOSNHOWHPV4923-38-58 18:46:00 Test Item Value Reference Range Interpretation Comments Eosinophils # (test code 0.2 See_Comment [A utomated message] The = Eosinophils #) system whic h generated this result tra nsmitted reference range : <=0.5. The reference r mitra was not used to int erpret this result as normal/abnormal . [facility]burgXopcdnsUBRZPXHCYG5538-90-42 18:46:00 Test Item Value Reference Range Interpretation Comments Basophils # (test code 0.1 See_Comment [Aut omated message] The = Basophils #) system which generated this result tra nsmitted reference range : <=0.2. The reference r mitra was not used to int erpret this result as normal/abnormal . [facility]burgMtdzlazAKEUYPKFUQ6907-49-89 18:46:00 Test Item Value Reference Range Interpretation Comments PT (test code = PT) 11.2 s 12.0-14.7 [facility]burgYodmgzxVLRVNKSGIX5626-76-15 18:46:00 Test Item Value Reference Range Interpretation Comments INR (test code = INR) 0.82 0.85-1.17 [facility]burgGncklclGVIWDVEVUK2829-12-40 18:46:00 Test Item Value Reference Range Interpretation Comments PTT (test code = PTT) 28.6 s 22.9-35.8 [facility]burgUllpwnfOAPOAVZNMC2564-03-18 18:46:00 Test Item Value Reference Range Interpretation Comments MPV (test code = MPV) 8.1 7.4-10.4 [facility]burgGrweflvYNRIOLQKLM5161-21-88 18:46:00 Test Item Value Reference Range Interpretation Comments Platelet (test code = Platelet) 301 133-450 [facility]burgIwvpcarOZFQXRELBS8488-33-69 18:46:00 Test Item Value Reference Range Interpretation Comments RDW (test code = RDW) 14.5 11.5-14.5 [facility]burgOudosifTFTYMBTSTT9181-32-45 18:46:00 Test Item Value Reference Range Interpretation Comments RBC (test code = RBC) 4.84 4.70-6.10 [facility]burgRhujgefSAIIRYPQKC1742-54-43 18:46:00 Test Item Value Reference Range Interpretation Comments Hgb (test code = Hgb) 14.4 14.0-18.0 [facility]burgFokvqygMGIZHLSCCQ8911-78-03 18:46:00 Test Item Value Reference Range Interpretation Comments WBC (test code = WBC) 5.2 3.7-10.4 [place] [id number] 18:46:00 Test Item Value Reference Range Interpretation Comments MCH (test code = MCH) 29.8 pg 27.0-31.0 [facility]cdiohxYKDKTNPUQW4510-30-95 18:46:00 Test Item Value Reference Range Interpretation Comments MCV (test code = MCV) 92.0 80.0-94.0 [facility] HospitalWskqxszUAPESJLMFU9618-67-87 18:46:00 Test Item Value Reference Range Interpretation Comments Hct (test code = Hct) 44.5 42.0-54.0 [facility]qWXMICNJLVF2472-66-47 18:46:00 Test Item Value Reference Range Interpretation Comments MCHC (test code = MCHC) 32.4 32.0-36.0 [facility]KlqgukuQAYPQTAYPF6078-34-29 18:46:00 Test Item Value Reference Range Interpretation Comments [place]roy-Hep C Ab (test Negative *NA*(07/22/14 code = Elroy-Hep C 1:46 PM) Ab) [facility] AND [id number] 18:46:00 Test Item Value Reference Range Interpretation Comments UA Urobilinogen (test code = UA <=1.0 mg/dL 0.1-1.0 Urobilinogen) [facility] AND [id number] 18:46:00 Test Item Value Reference Range Interpretation Comments UA Sq Epi (test code = UA Sq Epi) None Seen [facility] AND [id number] 18:46:00 Test Item Value Reference Range Interpretation Comments UA Leuk Est (test Negative (07/22/14 1:46 code = UA Leuk Est) PM) [facility] AND [id number] 18:46:00 Test Item Value Reference Range Interpretation Comments UA Nitrite (test code Negative (07/22/14 1:46 = UA Nitrite) PM) [facility] AND [id number] 18:46:00 Test Item Value Reference Range Interpretation Comments UA Blood (test code = Negative (07/22/14 1:46 UA Blood) PM) [facility] AND [id number] 18:46:00 Test Item Value Reference Range Interpretation Comments UA Ketones (test code = UA Negative mg/dL Ketones) [facility] AND [id number] 18:46:00 Test Item Value Reference Range Interpretation Comments UA Bili (test code = Negative *NA*(07/22/14 UA Bili) 1:46 PM) [facility] AND [id number] 18:46:00 Test Item Value Reference Range Interpretation Comments UA Bacteria (test code = UA Occasional /HPF Bacteria) [facility] AND [id number] 18:46:00 Test Item Value Reference Range Interpretation Comments UA RBC (test code = no gt See_Comment [Automa elizabeth message] The UA RBC) system which ge nerated this result transmit elizabeth reference range : <=2. The reference range was not used to interpr et this result as margaret l/abnormal. [facility] AND [id number] 18:46:00 Test Item Value Reference Range Interpretation Comments UA WBC (test code = 1 See_Comment [Automa elizabeth message] The UA WBC) system which ge nerated this result transmit elizabeth reference range : <=5. The reference range was not used to interpr et this result as margaret l/abnormal. [facility] AND [id number] 18:46:00 Test Item Value Reference Range Interpretation Comments UA Glucose (test code = UA Glucose) 30 mg/dL [facility] AND [id number] 18:46:00 Test Item Value Reference Range Interpretation Comments UA Protein (test code = UA Negative mg/dL Protein) [facility] AND [id number] 18:46:00 Test Item Value Reference Range Interpretation Comments UA pH (test code = UA pH) 6.5 5.0-8.0 [facility] AND [id number] 18:46:00 Test Item Value Reference Range Interpretation Comments UA Turbidity (test code = Clear (07/22/14 1:46 UA Turbidity) PM) [facility] AND [id number] 18:46:00 Test Item Value Reference Range Interpretation Comments UA Spec Grav (test code = UA Spec Grav) 1.010 [facility] AND [id number] 18:46:00 Test Item Value Reference Range Interpretation Comments UA Color (test code = Light Yellow UA Color) *NA*(07/22/14 1:46 PM) [facility] [id number] 18:46:00 Test Item Value Reference Range Interpretation Comments Magnesium Lvl (test code = Magnesium 1.8 1.8-2.4 Lvl) [facility] HospitalZfoarfvBNGVPKVKQTEV5281-16-56 18:46:00 Test Item Value Reference Range Interpretation Comments AGAP (test code = AGAP) 13.2 10.0-20.0 [facility] HospitalXwbfancLQRZSVLALLLZ8417-69-79 18:46:00 Test Item Value Reference Range Interpretation Comments B/C Ratio (test code = B/C Ratio) 18 6-25 [facility] HospitalKvxgqidOFTOJZLNUGZJ4388-40-51 18:46:00 Test Item Value Reference Range Interpretation Comments A/G Ratio (test code = A/G Ratio) 1.1 0.7-1.6 [facility] HospitalTsbdjvdYXFBPSHHZTOI2030-83-69 18:46:00 Test Item Value Reference Range Interpretation Comments Globulin (test code = Globulin) 3.3 2.0-4.0 [facility] HospitalNlnoplhDDDVVDWNIKGR8897-81-31 18:46:00 Test Item Value Reference Range Interpretation Comments eGFR (test code = eGFR) 99 [facility] HospitalGcvwtpiGXMBUHIUYSVJ0218-54-21 18:46:00 Test Item Value Reference Range Interpretation Comments Calcium Lvl (test code = Calcium Lvl) 9.0 8.5-10.5 [facility] HospitalLqkaqzyKCMTAZOLMSIF8285-41-70 18:46:00 Test Item Value Reference Range Interpretation Comments Chloride Lvl (test code = Chloride Lvl) 106 95-109 [facility] HospitalDikbamuNRHUYMIIMTYO5751-81-02 18:46:00 Test Item Value Reference Range Interpretation Comments Creatinine Lvl (test code = Creatinine 0.9 0.5-1.4 Lvl) [facility] HospitalNficqdbCWVLYPFVDBVK8193-73-67 18:46:00 Test Item Value Reference Range Interpretation Comments Potassium Lvl (test code = Potassium 4.2 3.5-5.1 Lvl) [facility] HospitalUukjcbeHPLBSMTKDXBK7845-12-80 18:46:00 Test Item Value Reference Range Interpretation Comments Sodium Lvl (test code = Sodium Lvl) 139 135-145 [facility] HospitalWnnrukaRBKNIDEVVIYU7649-08-30 18:46:00 Test Item Value Reference Range Interpretation Comments CO2 (test code = CO2) 24 24-32 [facility] HospitalDzdmlgcOASTFEFIRZOD3213-86-45 18:46:00 Test Item Value Reference Range Interpretation Comments BUN (test code = BUN) 16 7-22 [facility] HospitalAjejlrbSRGEMLTKEYBU2116-36-87 18:46:00 Test Item Value Reference Range Interpretation Comments Glucose Lvl (test code = Glucose Lvl) 141 70-99 [facility] HospitalSacchjbKZJLIMVWIBDY0746-24-42 18:46:00 Test Item Value Reference Range Interpretation Comments Albumin Lvl (test code = Albumin Lvl) 3.6 3.5-5.0 [facility] HospitalYiogqwgBUXEFJTFGUCF3265-80-50 18:46:00 Test Item Value Reference Range Interpretation Comments Alk Phos (test code = Alk Phos) 65 39-136 [facility] HospitalBsjsdbmPRAZJOFMCNDR7591-30-48 18:46:00 Test Item Value Reference Range Interpretation Comments Bili Total (test code = Bili Total) 0.3 0.2-1.3 [facility] HospitalSqblbctLNTPISIPEXUJ7418-39-36 18:46:00 Test Item Value Reference Range Interpretation Comments ALT (test code = ALT) 100 See_Comment [Auto mated message] The system which ge nerated this result transmit elizabeth reference range : <=65. The reference range was not used to interpr et this result as margaret l/abnormal. [facility] HospitalLpkuyltOEVLHOCEMKLW1219-29-22 18:46:00 Test Item Value Reference Range Interpretation Comments AST (test code = AST) 53 See_Comment [Auto mated message] The system which ge nerated this result transmit elizabeth reference range : <=37. The reference range was not used to interpr et this result as margaret l/abnormal. [facility] HospitalPtorwnuXBFNLWJBUBPO3212-92-17 18:46:00 Test Item Value Reference Range Interpretation Comments Total Protein (test code = Total 6.9 6.4-8.4 Protein) [facility]LngcjlgCZJQIKNWNZ2402-22-14 18:46:00 Test Item Value Reference Range Interpretation Comments Eosinophils (test code = 4.2 See_Comment [A utomated message] The Eosinophils) system which ge nerated this result tra nsmitted reference range : <=4.0. The reference r mitra was not used to int erpret this result as normal/abnormal . [facility]burgYxpthjrZGFSLOPPZE2889-23-22 18:46:00 Test Item Value Reference Range Interpretation Comments Segs (test code = Segs) 56.4 45.0-75.0 [facility]burgSjaplpnEARNKQIPTR0275-56-70 18:46:00 Test Item Value Reference Range Interpretation Comments Monocytes (test code = Monocytes) 10.3 2.0-12.0 [facility]burgKduupnaNWBWUFROVX7685-32-05 18:46:00 Test Item Value Reference Range Interpretation Comments Lymphocytes (test code = Lymphocytes) 28.0 20.0-40.0 [facility]burgAyxeklbGDXHRUQJHJ6933-48-72 18:46:00 Test Item Value Reference Range Interpretation Comments Monocytes # (test code 0.5 See_Comment [Aut omated message] The = Monocytes #) system which generated this result tra nsmitted reference range : <=0.8. The reference r mitra was not used to int erpret this result as normal/abnormal . [facility]burgVcuazwzNYBOALPFBU3976-23-43 18:46:00 Test Item Value Reference Range Interpretation Comments Basophils (test code = 1.1 See_Comment [Aut omated message] The Basophils) system which ge nerated this result tra nsmitted reference range : <=1.0. The reference r mitra was not used to int erpret this result as normal/abnormal . [facility]burgMzusdvbQDBPBHFYBD9877-20-53 18:46:00 Test Item Value Reference Range Interpretation Comments Lymphocytes # (test code = Lymphocytes 1.5 1.0-5.5 #) [facility]burgOxydzpwOBLXDWGSDL3504-97-89 18:46:00 Test Item Value Reference Range Interpretation Comments Segs-Bands # (test code = Segs-Bands #) 2.9 1.5-8.1 [facility]burgIqpfovdNLAMQMDKNY4994-56-51 18:46:00 Test Item Value Reference Range Interpretation Comments Eosinophils # (test code 0.2 See_Comment [A utomated message] The = Eosinophils #) system ic h generated this result tra nsmitted reference range : <=0.5. The reference r mitra was not used to int erpret this result as normal/abnormal . [facility]burgStezcekGOAMFYASOR9103-22-41 18:46:00 Test Item Value Reference Range Interpretation Comments Basophils # (test code 0.1 See_Comment [Aut omated message] The = Basophils #) system which generated this result tra nsmitted reference range : <=0.2. The reference r mitra was not used to int erpret this result as normal/abnormal . [facility]burgZaqaxhdNZPYUPEAPO3980-03-74 18:46:00 Test Item Value Reference Range Interpretation Comments PT (test code = PT) 11.2 s 12.0-14.7 [facility]burgNdlxmoeJWJONEZZLZ7593-79-87 18:46:00 Test Item Value Reference Range Interpretation Comments INR (test code = INR) 0.82 0.85-1.17 [facility]burgYggjjdzAZCKPMYXJQ5697-15-09 18:46:00 Test Item Value Reference Range Interpretation Comments PTT (test code = PTT) 28.6 s 22.9-35.8 [facility]burgMkdqsoaLZVNMDNUMT5450-19-80 18:46:00 Test Item Value Reference Range Interpretation Comments MPV (test code = MPV) 8.1 7.4-10.4 [facility]burgFyseehjTJUTFNRRWN2310-82-46 18:46:00 Test Item Value Reference Range Interpretation Comments Platelet (test code = Platelet) 301 133-450 [facility]burgNiorhxbUFPJNZJBJL7121-61-01 18:46:00 Test Item Value Reference Range Interpretation Comments RDW (test code = RDW) 14.5 11.5-14.5 [facility]burgItzaqchOFYTJZWCLZ4487-56-03 18:46:00 Test Item Value Reference Range Interpretation Comments RBC (test code = RBC) 4.84 4.70-6.10 [facility]inburgUxieispUVOYHPOYTN9964-60-25 18:46:00 Test Item Value Reference Range Interpretation Comments Hgb (test code = Hgb) 14.4 14.0-18.0 [facility]inburgZmwsjbhGPYKLWJRGX8854-34-65 18:46:00 Test Item Value Reference Range Interpretation Comments WBC (test code = WBC) 5.2 3.7-10.4 [facility]burgGhqttaeDXOFFIXZMS8222-85-60 18:46:00 Test Item Value Reference Range Interpretation Comments MCH (test code = MCH) 29.8 pg 27.0-31.0 [facility]inburgBmwggouSIOCGTLENB9840-93-41 18:46:00 Test Item Value Reference Range Interpretation Comments MCV (test code = MCV) 92.0 80.0-94.0 [facility]inburgUjaxlijMCJFXHVIEA1754-71-50 18:46:00 Test Item Value Reference Range Interpretation Comments Hct (test code = Hct) 44.5 42.0-54.0 [facility]burgGgkewitKKZNPAUEBZ9978-93-35 18:46:00 Test Item Value Reference Range Interpretation Comments MCHC (test code = MCHC) 32.4 32.0-36.0 [facility]johQJQECDPUTT9918-47-04 18:46:00 Test Item Value Reference Range Interpretation Comments [place]-Hep C Ab (test Negative *NA*(07/22/14 code = [place]-Hep C 1:46 PM) Ab) [facility] [id number] 18:46:00 Test Item Value Reference Range Interpretation Comments UA Urobilinogen (test code = UA <=1.0 mg/dL 0.1-1.0 Urobilinogen) [facility] [id number] 18:46:00 Test Item Value Reference Range Interpretation Comments UA Sq Epi (test code = UA Sq Epi) None Seen [facility] AND [id number] 18:46:00 Test Item Value Reference Range Interpretation Comments UA Leuk Est (test Negative (07/22/14 1:46 code = UA Leuk Est) PM) [facility] [id number] 18:46:00 Test Item Value Reference Range Interpretation Comments UA Nitrite (test code Negative (07/22/14 1:46 = UA Nitrite) PM) [facility] [id number] 18:46:00 Test Item Value Reference Range Interpretation Comments UA Blood (test code = Negative (07/22/14 1:46 UA Blood) PM) [facility] [id number] 18:46:00 Test Item Value Reference Range Interpretation Comments UA Ketones (test code = UA Negative mg/dL Ketones) [facility] [id number] 18:46:00 Test Item Value Reference Range Interpretation Comments UA Bili (test code = Negative *NA*(07/22/14 UA Bili) 1:46 PM) [facility] [id number] 18:46:00 Test Item Value Reference Range Interpretation Comments UA Bacteria (test code = UA Occasional /HPF Bacteria) [facility] [id number] 18:46:00 Test Item Value Reference Range Interpretation Comments UA RBC (test code = no gt See_Comment [Automa elizabeth message] The UA RBC) system which ge nerated this result transmit elizabeth reference range : <=2. The reference range was not used to interpr et this result as margaret l/abnormal. [facility] AND [id number] 18:46:00 Test Item Value Reference Range Interpretation Comments UA WBC (test code = 1 See_Comment [Automa elizabeth message] The UA WBC) system which ge nerated this result transmit elizabeth reference range : <=5. The reference range was not used to interpr et this result as margaret l/abnormal. [facility] AND [id number] 18:46:00 Test Item Value Reference Range Interpretation Comments UA Glucose (test code = UA Glucose) 30 mg/dL [facility] AND [id number] 18:46:00 Test Item Value Reference Range Interpretation Comments UA Protein (test code = UA Negative mg/dL Protein) [facility] AND [id number] 18:46:00 Test Item Value Reference Range Interpretation Comments UA pH (test code = UA pH) 6.5 5.0-8.0 [facility] AND [id number] 18:46:00 Test Item Value Reference Range Interpretation Comments UA Turbidity (test code = Clear (07/22/14 1:46 UA Turbidity) PM) [facility] AND [id number] 18:46:00 Test Item Value Reference Range Interpretation Comments UA Spec Grav (test code = UA Spec Grav) 1.010 [facility] AND [id number] 18:46:00 Test Item Value Reference Range Interpretation Comments UA Color (test code = Light Yellow UA Color) *NA*(07/22/14 1:46 PM) [facility] [id number] 18:46:00 Test Item Value Reference Range Interpretation Comments Magnesium Lvl (test code = Magnesium 1.8 1.8-2.4 Lvl) [facility]Msx[facility]lkMPNMEPYFBIDV4112-10-92 18:46:00 Test Item Value Reference Range Interpretation Comments AGAP (test code = AGAP) 13.2 10.0-20.0 [facility] HospitalYrpkigkEPMREOHJCQJE2796-05-57 18:46:00 Test Item Value Reference Range Interpretation Comments B/C Ratio (test code = B/C Ratio) 18 6-25 [facility]KubuxoaCECMXNKLCMQG1529-10-05 18:46:00 Test Item Value Reference Range Interpretation Comments A/G Ratio (test code = A/G Ratio) 1.1 0.7-1.6 [facility] HospitalSnobxjtLCWPSJIJLHVF9311-44-97 18:46:00 Test Item Value Reference Range Interpretation Comments Globulin (test code = Globulin) 3.3 2.0-4.0 [facility] HospitalLaaibgbGFHISFWANGMY1267-86-13 18:46:00 Test Item Value Reference Range Interpretation Comments eGFR (test code = eGFR) 99 [facility] HospitalWshknocDZNLTTEQTLWG6462-66-43 18:46:00 Test Item Value Reference Range Interpretation Comments Calcium Lvl (test code = Calcium Lvl) 9.0 8.5-10.5 [facility] HospitalSlubnmlFARVFTMVRRBE6075-88-60 18:46:00 Test Item Value Reference Range Interpretation Comments Chloride Lvl (test code = Chloride Lvl) 106 95-109 [facility] HospitalFktetxwJSBMBAMFDDNO7013-21-22 18:46:00 Test Item Value Reference Range Interpretation Comments Creatinine Lvl (test code = Creatinine 0.9 0.5-1.4 Lvl) [facility] HospitalOzoevklPFBHSPOHTHJN0061-37-86 18:46:00 Test Item Value Reference Range Interpretation Comments Potassium Lvl (test code = Potassium 4.2 3.5-5.1 Lvl) [facility] HospitalZrqorduTDPWCZUFQFKW9682-40-45 18:46:00 Test Item Value Reference Range Interpretation Comments Sodium Lvl (test code = Sodium Lvl) 139 135-145 [facility] HospitalAdzqjdtBTEVPHVBMDNA1622-43-16 18:46:00 Test Item Value Reference Range Interpretation Comments CO2 (test code = CO2) 24 24-32 [facility] HospitalFpgipikGKJKTNTPKIJG6991-01-90 18:46:00 Test Item Value Reference Range Interpretation Comments BUN (test code = BUN) 16 7-22 [facility] HospitalTgjmehxLYAANEAMKUXS7362-91-92 18:46:00 Test Item Value Reference Range Interpretation Comments Glucose Lvl (test code = Glucose Lvl) 141 70-99 [facility] HospitalVzqasvkFBVTPQTGIPIT2840-34-27 18:46:00 Test Item Value Reference Range Interpretation Comments Albumin Lvl (test code = Albumin Lvl) 3.6 3.5-5.0 [facility] HospitalOwdsirbQYYBFQLJKZXF4871-58-88 18:46:00 Test Item Value Reference Range Interpretation Comments Alk Phos (test code = Alk Phos) 65 39-136 [facility] HospitalQmfhpslWAWFPASDPPYD9121-78-88 18:46:00 Test Item Value Reference Range Interpretation Comments Bili Total (test code = Bili Total) 0.3 0.2-1.3 [facility] HospitalKssieowVHPGSWJPSSXJ5905-94-05 18:46:00 Test Item Value Reference Range Interpretation Comments ALT (test code = ALT) 100 See_Comment [Auto mated message] The system which ge nerated this result transmit elizabeth reference range : <=65. The reference range was not used to interpr et this result as margaret l/abnormal. [facility] HospitalAtvcgzzPDFBBMOUPCEH6723-70-61 18:46:00 Test Item Value Reference Range Interpretation Comments AST (test code = AST) 53 See_Comment [Auto mated message] The system which ge nerated this result transmit elizabeth reference range : <=37. The reference range was not used to interpr et this result as margaret l/abnormal. [facility] HospitalHanicywHQVPJIOUMBOD3232-35-86 18:46:00 Test Item Value Reference Range Interpretation Comments Total Protein (test code = Total 6.9 6.4-8.4 Protein) [facility]KzzpukbGCVDAZMZEP8896-10-90 18:46:00 Test Item Value Reference Range Interpretation Comments Eosinophils (test code = 4.2 See_Comment [A utomated message] The Eosinophils) system which ge nerated this result tra nsmitted reference range : <=4.0. The reference r mitra was not used to int erpret this result as normal/abnormal . [facility]burgVjicywnURUCASKZXP1852-00-99 18:46:00 Test Item Value Reference Range Interpretation Comments Segs (test code = Segs) 56.4 45.0-75.0 [facility]burgZqqrsvlQUPXTINKKI0513-17-06 18:46:00 Test Item Value Reference Range Interpretation Comments Monocytes (test code = Monocytes) 10.3 2.0-12.0 [facility]burgTxlmzqfFFNIHEPMXS1492-78-64 18:46:00 Test Item Value Reference Range Interpretation Comments Lymphocytes (test code = Lymphocytes) 28.0 20.0-40.0 [facility]burgQtpadznHRJMBZFGDI4536-66-38 18:46:00 Test Item Value Reference Range Interpretation Comments Monocytes # (test code 0.5 See_Comment [Aut omated message] The = Monocytes #) system which generated this result tra nsmitted reference range : <=0.8. The reference r mitra was not used to int erpret this result as normal/abnormal . [facility]burgKbupldpNGMFQEOKTX8006-58-08 18:46:00 Test Item Value Reference Range Interpretation Comments Basophils (test code = 1.1 See_Comment [Aut omated message] The Basophils) system which ge nerated this result tra nsmitted reference range : <=1.0. The reference r mitra was not used to int erpret this result as normal/abnormal . [facility]burgXvspxdjVKKYKZUHDX4813-45-51 18:46:00 Test Item Value Reference Range Interpretation Comments Lymphocytes # (test code = Lymphocytes 1.5 1.0-5.5 #) [facility]burgXlgeutfKKZUPIZVKL0124-45-62 18:46:00 Test Item Value Reference Range Interpretation Comments Segs-Bands # (test code = Segs-Bands #) 2.9 1.5-8.1 [facility]burgNgdmvlvBKQEXGDLAO3305-37-32 18:46:00 Test Item Value Reference Range Interpretation Comments Eosinophils # (test code 0.2 See_Comment [A utomated message] The = Eosinophils #) system wh h generated this result tra nsmitted reference range : <=0.5. The reference r mitra was not used to int erpret this result as normal/abnormal . [facility]burgMozgebgCYIOOMMVOA1456-46-42 18:46:00 Test Item Value Reference Range Interpretation Comments Basophils # (test code 0.1 See_Comment [Aut omated message] The = Basophils #) system which generated this result tra nsmitted reference range : <=0.2. The reference r mitra was not used to int erpret this result as normal/abnormal . [facility]burgGjucrhgUKZBDSXKAO3360-66-96 18:46:00 Test Item Value Reference Range Interpretation Comments PT (test code = PT) 11.2 s 12.0-14.7 [facility]burgDglhvkcLKHFRDUORE6993-87-77 18:46:00 Test Item Value Reference Range Interpretation Comments INR (test code = INR) 0.82 0.85-1.17 [facility]burgYerdorvIANODDPLNH2001-75-26 18:46:00 Test Item Value Reference Range Interpretation Comments PTT (test code = PTT) 28.6 s 22.9-35.8 [facility]burgWhtsruuGPLMJAXCQL3185-59-02 18:46:00 Test Item Value Reference Range Interpretation Comments MPV (test code = MPV) 8.1 7.4-10.4 [facility]burgGxcynegXBCVCQYZXF0600-51-77 18:46:00 Test Item Value Reference Range Interpretation Comments Platelet (test code = Platelet) 301 133-450 [facility]burgBqbjeslAPAOCLLBFE6170-79-81 18:46:00 Test Item Value Reference Range Interpretation Comments RDW (test code = RDW) 14.5 11.5-14.5 [facility]burgGpjnjeqRYCVQGEFRL9166-83-72 18:46:00 Test Item Value Reference Range Interpretation Comments RBC (test code = RBC) 4.84 4.70-6.10 [facility]burgPigaigoCSANZYFSXH2512-92-91 18:46:00 Test Item Value Reference Range Interpretation Comments Hgb (test code = Hgb) 14.4 14.0-18.0 [facility]burgTjinewsEIZDFHLBVF3786-35-52 18:46:00 Test Item Value Reference Range Interpretation Comments WBC (test code = WBC) 5.2 3.7-10.4 [facility]burgWyxglozQCBRDKMYND7507-63-48 18:46:00 Test Item Value Reference Range Interpretation Comments MCH (test code = MCH) 29.8 pg 27.0-31.0 [facility]burgXguadjsNWGKTDDNAW1333-24-13 18:46:00 Test Item Value Reference Range Interpretation Comments MCV (test code = MCV) 92.0 80.0-94.0 [facility]burgOgmhkrwVNSLUNNEEP3203-25-70 18:46:00 Test Item Value Reference Range Interpretation Comments Hct (test code = Hct) 44.5 42.0-54.0 [facility]burgPmxwaymGKJWDIELGS7862-26-74 18:46:00 Test Item Value Reference Range Interpretation Comments MCHC (test code = MCHC) 32.4 32.0-36.0 [facility]DS[facility]9154-[facility] 18:46:00 Test Item Value Reference Range Interpretation Comments Elroy-Hep C Ab (test Negative *NA*(07/22/14 code = Elroy-Hep C 1:46 PM) Ab) [facility] AND [id number] 18:46:00 Test Item Value Reference Range Interpretation Comments UA Urobilinogen (test code = UA <=1.0 mg/dL 0.1-1.0 Urobilinogen) [facility] AND [id number] 18:46:00 Test Item Value Reference Range Interpretation Comments UA Sq Epi (test code = UA Sq Epi) None Seen [facility] AND [id number] 18:46:00 Test Item Value Reference Range Interpretation Comments UA Leuk Est (test Negative (07/22/14 1:46 code = UA Leuk Est) PM) [facility] AND [id number] 18:46:00 Test Item Value Reference Range Interpretation Comments UA Nitrite (test code Negative (07/22/14 1:46 = UA Nitrite) PM) [facility] AND [id number] 18:46:00 Test Item Value Reference Range Interpretation Comments UA Blood (test code = Negative (07/22/14 1:46 UA Blood) PM) [facility] AND [id number] 18:46:00 Test Item Value Reference Range Interpretation Comments UA Ketones (test code = UA Negative mg/dL Ketones) [facility] AND [id number] 18:46:00 Test Item Value Reference Range Interpretation Comments UA Bili (test code = Negative *NA*(07/22/14 UA Bili) 1:46 PM) [facility] AND [id number] 18:46:00 Test Item Value Reference Range Interpretation Comments UA Bacteria (test code = UA Occasional /HPF Bacteria) [facility] AND [id number] 18:46:00 Test Item Value Reference Range Interpretation Comments UA RBC (test code = no gt See_Comment [Automa elizabeth message] The UA RBC) system which ge nerated this result transmit elizabeth reference range : <=2. The reference range was not used to interpr et this result as margaret l/abnormal. [facility] AND [id number] 18:46:00 Test Item Value Reference Range Interpretation Comments UA WBC (test code = 1 See_Comment [Automa elizabeth message] The UA WBC) system which ge nerated this result transmit elizabeth reference range : <=5. The reference range was not used to interpr et this result as margaret l/abnormal. [facility] AND [id number] 18:46:00 Test Item Value Reference Range Interpretation Comments UA Glucose (test code = UA Glucose) 30 mg/dL [facility] AND [id number] 18:46:00 Test Item Value Reference Range Interpretation Comments UA Protein (test code = UA Negative mg/dL Protein) [facility] AND [id number] 18:46:00 Test Item Value Reference Range Interpretation Comments UA pH (test code = UA pH) 6.5 5.0-8.0 [facility] AND [id number] 18:46:00 Test Item Value Reference Range Interpretation Comments UA Turbidity (test code = Clear (07/22/14 1:46 UA Turbidity) PM) [facility] AND [id number] 18:46:00 Test Item Value Reference Range Interpretation Comments UA Spec Grav (test code = UA Spec Grav) 1.010 [facility] AND [id number] 18:46:00 Test Item Value Reference Range Interpretation Comments UA Color (test code = Light Yellow UA Color) *NA*(07/22/14 1:46 PM) [facility] [id number] 18:46:00 Test Item Value Reference Range Interpretation Comments Magnesium Lvl (test code = Magnesium 1.8 1.8-2.4 Lvl) [facility] HospitalWqfuetyJKLFHZDXQBMD6269-56-47 18:46:00 Test Item Value Reference Range Interpretation Comments AGAP (test code = AGAP) 13.2 10.0-20.0 [facility] HospitalDgcenpaFMIRLJLMAPJO7378-87-21 18:46:00 Test Item Value Reference Range Interpretation Comments B/C Ratio (test code = B/C Ratio) 18 6-25 [facility] HospitalTjfmuvjHWMJVKNWVAFF6627-88-16 18:46:00 Test Item Value Reference Range Interpretation Comments A/G Ratio (test code = A/G Ratio) 1.1 0.7-1.6 [facility] HospitalJvfebfgBNIBPXRAGZML7082-74-63 18:46:00 Test Item Value Reference Range Interpretation Comments Globulin (test code = Globulin) 3.3 2.0-4.0 [facility] HospitalTazojdrUIHHNOJSXYQT8463-16-12 18:46:00 Test Item Value Reference Range Interpretation Comments eGFR (test code = eGFR) 99 [facility] HospitalQlgvkolJZCTPNCOQHAL2017-68-78 18:46:00 Test Item Value Reference Range Interpretation Comments Calcium Lvl (test code = Calcium Lvl) 9.0 8.5-10.5 [facility] HospitalSdkfvcjKLDCEFZSGLWL9483-27-85 18:46:00 Test Item Value Reference Range Interpretation Comments Chloride Lvl (test code = Chloride Lvl) 106 95-109 [facility] HospitalYilxuqiIJSIKTZENWFE5175-47-61 18:46:00 Test Item Value Reference Range Interpretation Comments Creatinine Lvl (test code = Creatinine 0.9 0.5-1.4 Lvl) [facility] HospitalOoqnuqqQKFFCELNYTMF9673-78-68 18:46:00 Test Item Value Reference Range Interpretation Comments Potassium Lvl (test code = Potassium 4.2 3.5-5.1 Lvl) [facility] HospitalPvrhxpjDZNPIJDDFKUO1181-16-56 18:46:00 Test Item Value Reference Range Interpretation Comments Sodium Lvl (test code = Sodium Lvl) 139 135-145 [facility] HospitalEldrmyoCEUQNEXHEIGE2906-58-34 18:46:00 Test Item Value Reference Range Interpretation Comments CO2 (test code = CO2) 24 24-32 [facility] HospitalWfygjqeILEDJDMZTIUC8388-04-17 18:46:00 Test Item Value Reference Range Interpretation Comments BUN (test code = BUN) 16 7-22 [facility] HospitalDefkesbQJDTUSTXQVQW5369-97-19 18:46:00 Test Item Value Reference Range Interpretation Comments Glucose Lvl (test code = Glucose Lvl) 141 70-99 [facility] HospitalTuyxqcrLCLEAHXEMVIY1165-10-87 18:46:00 Test Item Value Reference Range Interpretation Comments Albumin Lvl (test code = Albumin Lvl) 3.6 3.5-5.0 [facility] HospitalGbqbucoPGTDQPIXBGVB6747-82-61 18:46:00 Test Item Value Reference Range Interpretation Comments Alk Phos (test code = Alk Phos) 65 39-136 [facility] HospitalOuwqejfCYVQQEFWCZEJ7604-34-99 18:46:00 Test Item Value Reference Range Interpretation Comments Bili Total (test code = Bili Total) 0.3 0.2-1.3 [facility] HospitalShtwchkMTGSAAJSWRSX7193-70-75 18:46:00 Test Item Value Reference Range Interpretation Comments ALT (test code = ALT) 100 See_Comment [Auto mated message] The system which ge nerated this result transmit elizabeth reference range : <=65. The reference range was not used to interpr et this result as margaret l/abnormal. [facility] HospitalUdtdsurAETJOGRYWQOS3756-98-18 18:46:00 Test Item Value Reference Range Interpretation Comments AST (test code = AST) 53 See_Comment [Auto mated message] The system which ge nerated this result transmit elizabeth reference range : <=37. The reference range was not used to interpr et this result as margaret l/abnormal. [facility] HospitalTsapovvPNIEMUQJEAAQ0263-87-33 18:46:00 Test Item Value Reference Range Interpretation Comments Total Protein (test code = Total 6.9 6.4-8.4 Protein) [facility]YyvwhpwZTNYDWYNCN2152-37-27 18:46:00 Test Item Value Reference Range Interpretation Comments Eosinophils (test code = 4.2 See_Comment [A utomated message] The Eosinophils) system which ge nerated this result tra nsmitted reference range : <=4.0. The reference r mitra was not used to int erpret this result as normal/abnormal . [facility]burgRocclqqVHVILTTZXH3012-54-48 18:46:00 Test Item Value Reference Range Interpretation Comments Segs (test code = Segs) 56.4 45.0-75.0 [facility]burgDncleekNFYUNRUNVK5482-27-19 18:46:00 Test Item Value Reference Range Interpretation Comments Monocytes (test code = Monocytes) 10.3 2.0-12.0 [facility]burgQhskwtfNFPQYQJZRK1627-08-05 18:46:00 Test Item Value Reference Range Interpretation Comments Lymphocytes (test code = Lymphocytes) 28.0 20.0-40.0 [facility]burgWorzulmHEIRSZKKMK2385-93-16 18:46:00 Test Item Value Reference Range Interpretation Comments Monocytes # (test code 0.5 See_Comment [Aut omated message] The = Monocytes #) system which generated this result tra nsmitted reference range : <=0.8. The reference r mitra was not used to int erpret this result as normal/abnormal . [facility]burgJseulshBSNYNTGHST9508-63-68 18:46:00 Test Item Value Reference Range Interpretation Comments Basophils (test code = 1.1 See_Comment [Aut omated message] The Basophils) system which ge nerated this result tra nsmitted reference range : <=1.0. The reference r mitra was not used to int erpret this result as normal/abnormal . [facility]burgZmnzmbzCRZENKNYIM1642-78-56 18:46:00 Test Item Value Reference Range Interpretation Comments Lymphocytes # (test code = Lymphocytes 1.5 1.0-5.5 #) [place] [id number] 18:46:00 Test Item Value Reference Range Interpretation Comments Segs-Bands # (test code = Segs-Bands #) 2.9 1.5-8.1 [facility]burgJiyerckVCHGNDOBNC6727-73-16 18:46:00 Test Item Value Reference Range Interpretation Comments Eosinophils # (test code 0.2 See_Comment [A utomated message] The = Eosinophils #) system whic h generated this result tra nsmitted reference range : <=0.5. The reference r mitra was not used to int erpret this result as normal/abnormal . [facility]burgWnplmbyDXJGZWQVTU9008-58-46 18:46:00 Test Item Value Reference Range Interpretation Comments Basophils # (test code 0.1 See_Comment [Aut omated message] The = Basophils #) system which generated this result tra nsmitted reference range : <=0.2. The reference r mitra was not used to int erpret this result as normal/abnormal . [facility]burgNtajzzvCKQSKWBZXL6719-12-76 18:46:00 Test Item Value Reference Range Interpretation Comments PT (test code = PT) 11.2 s 12.0-14.7 [facility]burgDagbrjnWCOLUROZCK4748-14-44 18:46:00 Test Item Value Reference Range Interpretation Comments INR (test code = INR) 0.82 0.85-1.17 [facility]burgGbfgbarPGWBRFQRFI1889-35-81 18:46:00 Test Item Value Reference Range Interpretation Comments PTT (test code = PTT) 28.6 s 22.9-35.8 [facility]burgTljgakmYIAPACUPRW8963-10-30 18:46:00 Test Item Value Reference Range Interpretation Comments MPV (test code = MPV) 8.1 7.4-10.4 [facility]burgMpdhugnEETQTIIESW0314-50-84 18:46:00 Test Item Value Reference Range Interpretation Comments Platelet (test code = Platelet) 301 133-450 [facility]burgGuiwlfpTHMKWYXROS2376-60-93 18:46:00 Test Item Value Reference Range Interpretation Comments RDW (test code = RDW) 14.5 11.5-14.5 [facility]burgOudridqEMJVPNDTCW4103-97-95 18:46:00 Test Item Value Reference Range Interpretation Comments RBC (test code = RBC) 4.84 4.70-6.10 [facility]burgWyvbieoKCTYLCYOTH7571-89-67 18:46:00 Test Item Value Reference Range Interpretation Comments Hgb (test code = Hgb) 14.4 14.0-18.0 [facility]wfxuhhUXGIUMPJEX8145-72-10 18:46:00 Test Item Value Reference Range Interpretation Comments WBC (test code = WBC) 5.2 3.7-10.4 [facility]jgbVLIZHCGMHX2502[facility] 18:46:00 Test Item Value Reference Range Interpretation Comments MCH (test code = MCH) 29.8 pg 27.0-31.0 [facility] HospitalAdtncrnHHKROLSOLA5972-53-12 18:46:00 Test Item Value Reference Range Interpretation Comments MCV (test code = MCV) 92.0 80.0-94.0 [facility] HospitalBdgobovRLWPBRCJTE9085-92-86 18:46:00 Test Item Value Reference Range Interpretation Comments Hct (test code = Hct) 44.5 42.0-54.0 [facility] HospitalBauofqiJSQNLLBJSC2332-70-04 18:46:00 Test Item Value Reference Range Interpretation Comments MCHC (test code = MCHC) 32.4 32.0-36.0 [facility]avCYLNHNDSCF2371-59-54 18:46:00 Test Item Value Reference Range Interpretation Comments Elroy-Hep C Ab (test Negative *NA*(07/22/14 code = Elroy-Hep C 1:46 PM) Ab) [facility] AND [id number] 18:46:00 Test Item Value Reference Range Interpretation Comments UA Urobilinogen (test code = UA <=1.0 mg/dL 0.1-1.0 Urobilinogen) [facility] AND [id number] 18:46:00 Test Item Value Reference Range Interpretation Comments UA Sq Epi (test code = UA Sq Epi) None Seen [facility] AND [id number] 18:46:00 Test Item Value Reference Range Interpretation Comments UA Leuk Est (test Negative (07/22/14 1:46 code = UA Leuk Est) PM) [facility] AND [id number] 18:46:00 Test Item Value Reference Range Interpretation Comments UA Nitrite (test code Negative (07/22/14 1:46 = UA Nitrite) PM) [facility] AND [id number] 18:46:00 Test Item Value Reference Range Interpretation Comments UA Blood (test code = Negative (07/22/14 1:46 UA Blood) PM) [facility] AND [id number] 18:46:00 Test Item Value Reference Range Interpretation Comments UA Ketones (test code = UA Negative mg/dL Ketones) [facility] AND [id number] 18:46:00 Test Item Value Reference Range Interpretation Comments UA Bili (test code = Negative *NA*(07/22/14 UA Bili) 1:46 PM) [facility] AND [id number] 18:46:00 Test Item Value Reference Range Interpretation Comments UA Bacteria (test code = UA Occasional /HPF Bacteria) [facility] AND [id number] 18:46:00 Test Item Value Reference Range Interpretation Comments UA RBC (test code = no gt See_Comment [Automa elizabeth message] The UA RBC) system which ge nerated this result transmit elizabeth reference range : <=2. The reference range was not used to interpr et this result as margaret l/abnormal. [facility] AND [id number] 18:46:00 Test Item Value Reference Range Interpretation Comments UA WBC (test code = 1 See_Comment [Automa elizabeth message] The UA WBC) system which ge nerated this result transmit elizabeth reference range : <=5. The reference range was not used to interpr et this result as margaret l/abnormal. [facility] AND [id number] 18:46:00 Test Item Value Reference Range Interpretation Comments UA Glucose (test code = UA Glucose) 30 mg/dL [facility] AND [id number] 18:46:00 Test Item Value Reference Range Interpretation Comments UA Protein (test code = UA Negative mg/dL Protein) [facility] AND [id number] 18:46:00 Test Item Value Reference Range Interpretation Comments UA pH (test code = UA pH) 6.5 5.0-8.0 [facility] AND [id number] 18:46:00 Test Item Value Reference Range Interpretation Comments UA Turbidity (test code = Clear (07/22/14 1:46 UA Turbidity) PM) [facility] AND [id number] 18:46:00 Test Item Value Reference Range Interpretation Comments UA Spec Grav (test code = UA Spec Grav) 1.010 [facility] AND [id number] 18:46:00 Test Item Value Reference Range Interpretation Comments UA Color (test code = Light Yellow UA Color) *NA*(07/22/14 1:46 PM) [facility] [id number] 18:46:00 Test Item Value Reference Range Interpretation Comments Magnesium Lvl (test code = Magnesium 1.8 1.8-2.4 Lvl) [facility]zMDBQMICNOJEK9119-49-63 18:46:00 Test Item Value Reference Range Interpretation Comments AGAP (test code = AGAP) 13.2 10.0-20.0 [facility] HospitalUdpswphWJJMXVCVAEFZ4470-79-72 18:46:00 Test Item Value Reference Range Interpretation Comments B/C Ratio (test code = B/C Ratio) 18 6-25 [facility] HospitalRxdnoojNROKWBIYEHFY6368-79-53 18:46:00 Test Item Value Reference Range Interpretation Comments A/G Ratio (test code = A/G Ratio) 1.1 0.7-1.6 [facility] HospitalVsqmlugWRFZZKYZLASA9481-50-22 18:46:00 Test Item Value Reference Range Interpretation Comments Globulin (test code = Globulin) 3.3 2.0-4.0 [facility] HospitalIuydgaqATPITRXOAPEE5873-02-31 18:46:00 Test Item Value Reference Range Interpretation Comments eGFR (test code = eGFR) 99 [facility] HospitalKirjuxgVHAOLGBJRGEH0079-20-06 18:46:00 Test Item Value Reference Range Interpretation Comments Calcium Lvl (test code = Calcium Lvl) 9.0 8.5-10.5 [facility] HospitalYdmsxmyUIIXPVQLRNUE9884-77-42 18:46:00 Test Item Value Reference Range Interpretation Comments Chloride Lvl (test code = Chloride Lvl) 106 95-109 [facility] HospitalNzxlodjRTTJBOALVAFG2884-73-57 18:46:00 Test Item Value Reference Range Interpretation Comments Creatinine Lvl (test code = Creatinine 0.9 0.5-1.4 Lvl) [facility] HospitalTntqgxsVQJGZOXBHPPS9994-89-49 18:46:00 Test Item Value Reference Range Interpretation Comments Potassium Lvl (test code = Potassium 4.2 3.5-5.1 Lvl) [facility] HospitalVboegijFUFNNKHVHUJK1928-70-49 18:46:00 Test Item Value Reference Range Interpretation Comments Sodium Lvl (test code = Sodium Lvl) 139 135-145 [facility] HospitalBbrfwffXQUAGAYQRIZV6762-53-22 18:46:00 Test Item Value Reference Range Interpretation Comments CO2 (test code = CO2) 24 24-32 [facility] HospitalDrtqhoiRHBVALCHETPX6278-49-29 18:46:00 Test Item Value Reference Range Interpretation Comments BUN (test code = BUN) 16 7-22 [facility] HospitalQbcjfepKUKWJNVTEINC8278-32-94 18:46:00 Test Item Value Reference Range Interpretation Comments Glucose Lvl (test code = Glucose Lvl) 141 70-99 [facility] HospitalLdkrwlzYATFJPHQMNFA2958-99-47 18:46:00 Test Item Value Reference Range Interpretation Comments Albumin Lvl (test code = Albumin Lvl) 3.6 3.5-5.0 [facility] HospitalLakrqnnWYYJKEJHLAWZ5897-17-44 18:46:00 Test Item Value Reference Range Interpretation Comments Alk Phos (test code = Alk Phos) 65 39-136 [facility] HospitalOfmucylPMLTWPLXMWRL1187-64-91 18:46:00 Test Item Value Reference Range Interpretation Comments Bili Total (test code = Bili Total) 0.3 0.2-1.3 [facility] HospitalYqbzddvZCGLKJUUVJYZ1448-54-33 18:46:00 Test Item Value Reference Range Interpretation Comments ALT (test code = ALT) 100 See_Comment [Auto mated message] The system which ge nerated this result transmit elizaebth reference range : <=65. The reference range was not used to interpr et this result as margaret l/abnormal. [facility] HospitalKnqcmifHYDWNXPQIROE2872-56-98 18:46:00 Test Item Value Reference Range Interpretation Comments AST (test code = AST) 53 See_Comment [Auto mated message] The system which ge nerated this result transmit elizabeth reference range : <=37. The reference range was not used to interpr et this result as margaret l/abnormal. [facility] HospitalCyscpzfNSKBRLKFBCOT7124-13-08 18:46:00 Test Item Value Reference Range Interpretation Comments Total Protein (test code = Total 6.9 6.4-8.4 Protein) [facility]jejrOPXIBBEWEM1145-[facility] 18:46:00 Test Item Value Reference Range Interpretation Comments Eosinophils (test code = 4.2 See_Comment [A utomated message] The Eosinophils) system which ge nerated this result tra nsmitted reference range : <=4.0. The reference r mitra was not used to int erpret this result as normal/abnormal . [facility]burgZlenpaxAHRMNRBXVA5977-80-86 18:46:00 Test Item Value Reference Range Interpretation Comments Segs (test code = Segs) 56.4 45.0-75.0 [facility]burgUygetarBTBGRPFHVL1353-83-35 18:46:00 Test Item Value Reference Range Interpretation Comments Monocytes (test code = Monocytes) 10.3 2.0-12.0 [facility]burgKadryryXYFDWAAVBT3970-59-75 18:46:00 Test Item Value Reference Range Interpretation Comments Lymphocytes (test code = Lymphocytes) 28.0 20.0-40.0 [facility]burgAptxfdkTNHQSZUVGM6754-75-46 18:46:00 Test Item Value Reference Range Interpretation Comments Monocytes # (test code 0.5 See_Comment [Aut omated message] The = Monocytes #) system which generated this result tra nsmitted reference range : <=0.8. The reference r mitra was not used to int erpret this result as normal/abnormal . [facility]burgTyqtileDAJPLPWBYY8157-93-40 18:46:00 Test Item Value Reference Range Interpretation Comments Basophils (test code = 1.1 See_Comment [Aut omated message] The Basophils) system which ge nerated this result tra nsmitted reference range : <=1.0. The reference r mitra was not used to int erpret this result as normal/abnormal . [facility]burgJplkttaYSNPWTPIVU5843-92-38 18:46:00 Test Item Value Reference Range Interpretation Comments Lymphocytes # (test code = Lymphocytes 1.5 1.0-5.5 #) [facility]burgYidvsodAJJSERWJPM1936-42-11 18:46:00 Test Item Value Reference Range Interpretation Comments Segs-Bands # (test code = Segs-Bands #) 2.9 1.5-8.1 [facility]burgRxmksdvMMVQEZZNJU0535-37-44 18:46:00 Test Item Value Reference Range Interpretation Comments Eosinophils # (test code 0.2 See_Comment [A utomated message] The = Eosinophils #) system whic h generated this result tra nsmitted reference range : <=0.5. The reference r mitra was not used to int erpret this result as normal/abnormal . [facility]burgOnxgiwqJDKNXOESQX0253-86-86 18:46:00 Test Item Value Reference Range Interpretation Comments Basophils # (test code 0.1 See_Comment [Aut omated message] The = Basophils #) system which generated this result tra nsmitted reference range : <=0.2. The reference r mitra was not used to int erpret this result as normal/abnormal . [facility]burgHiirhtjIKAZGWEJBX4573-30-68 18:46:00 Test Item Value Reference Range Interpretation Comments PT (test code = PT) 11.2 s 12.0-14.7 [facility]burgImfotczUSGTCTLLWW9634-15-45 18:46:00 Test Item Value Reference Range Interpretation Comments INR (test code = INR) 0.82 0.85-1.17 [facility]burgUubbmcnBVMLOPIFVB1863-64-05 18:46:00 Test Item Value Reference Range Interpretation Comments PTT (test code = PTT) 28.6 s 22.9-35.8 [facility]burgGwjucmzOYUNEKVODI2067-15-04 18:46:00 Test Item Value Reference Range Interpretation Comments MPV (test code = MPV) 8.1 7.4-10.4 [facility]burgEjuqtnyLYKYFLPXLW5353-73-64 18:46:00 Test Item Value Reference Range Interpretation Comments Platelet (test code = Platelet) 301 133-450 [facility]burgNjinahlFEHHMLXPFJ3956-28-41 18:46:00 Test Item Value Reference Range Interpretation Comments RDW (test code = RDW) 14.5 11.5-14.5 [facility]burgFypthiqRSXLADTPIH3497-54-03 18:46:00 Test Item Value Reference Range Interpretation Comments RBC (test code = RBC) 4.84 4.70-6.10 [facility]burgGicirigVLRIIHJRTU7546-85-08 18:46:00 Test Item Value Reference Range Interpretation Comments Hgb (test code = Hgb) 14.4 14.0-18.0 [facility]burgDpkzzriFTSBNJQPNK3148-38-38 18:46:00 Test Item Value Reference Range Interpretation Comments WBC (test code = WBC) 5.2 3.7-10.4 [facility]burgMmbipvvZXHNETXBOD5408-03-32 18:46:00 Test Item Value Reference Range Interpretation Comments MCH (test code = MCH) 29.8 pg 27.0-31.0 [facility]burgCbtksgaZLJGICVTLM3830-15-92 18:46:00 Test Item Value Reference Range Interpretation Comments MCV (test code = MCV) 92.0 80.0-94.0 [facility]HjkapkrISTYVNSHCE3686-18-92 18:46:00 Test Item Value Reference Range Interpretation Comments Hct (test code = Hct) 44.5 42.0-54.0 [facility]sqixtrBVNZIESEAM8439-30-06 18:46:00 Test Item Value Reference Range Interpretation Comments MCHC (test code = MCHC) 32.4 32.0-36.0 [facility]TdrodriKXMRIVXSIE7070-73-06 18:46:00 Test Item Value Reference Range Interpretation Comments Elroy-Hep C Ab (test Negative *NA*(07/22/14 code = Elroy-Hep C 1:46 PM) Ab) [facility] AND [id number] 18:46:00 Test Item Value Reference Range Interpretation Comments UA Urobilinogen (test code = UA <=1.0 mg/dL 0.1-1.0 Urobilinogen) [facility] AND [id number] 18:46:00 Test Item Value Reference Range Interpretation Comments UA Sq Epi (test code = UA Sq Epi) None Seen [facility] AND [id number] 18:46:00 Test Item Value Reference Range Interpretation Comments UA Leuk Est (test Negative (07/22/14 1:46 code = UA Leuk Est) PM) [facility] AND [id number] 18:46:00 Test Item Value Reference Range Interpretation Comments UA Nitrite (test code Negative (07/22/14 1:46 = UA Nitrite) PM) [facility] AND [id number] 18:46:00 Test Item Value Reference Range Interpretation Comments UA Blood (test code = Negative (07/22/14 1:46 UA Blood) PM) [facility] AND [id number] 18:46:00 Test Item Value Reference Range Interpretation Comments UA Ketones (test code = UA Negative mg/dL Ketones) [facility] AND [id number] 18:46:00 Test Item Value Reference Range Interpretation Comments UA Bili (test code = Negative *NA*(07/22/14 UA Bili) 1:46 PM) [facility] AND [id number] 18:46:00 Test Item Value Reference Range Interpretation Comments UA Bacteria (test code = UA Occasional /HPF Bacteria) [facility] AND [id number] 18:46:00 Test Item Value Reference Range Interpretation Comments UA RBC (test code = no gt See_Comment [Automa elizabeth message] The UA RBC) system which ge nerated this result transmit elizabeth reference range : <=2. The reference range was not used to interpr et this result as margaret l/abnormal. [facility] AND [id number] 18:46:00 Test Item Value Reference Range Interpretation Comments UA WBC (test code = 1 See_Comment [Automa elizabeth message] The UA WBC) system which ge nerated this result transmit elizabeth reference range : <=5. The reference range was not used to interpr et this result as margaret l/abnormal. [facility] AND [id number] 18:46:00 Test Item Value Reference Range Interpretation Comments UA Glucose (test code = UA Glucose) 30 mg/dL [facility] AND [id number] 18:46:00 Test Item Value Reference Range Interpretation Comments UA Protein (test code = UA Negative mg/dL Protein) [facility] AND [id number] 18:46:00 Test Item Value Reference Range Interpretation Comments UA pH (test code = UA pH) 6.5 5.0-8.0 [facility] AND [id number] 18:46:00 Test Item Value Reference Range Interpretation Comments UA Turbidity (test code = Clear (07/22/14 1:46 UA Turbidity) PM) [facility] AND [id number] 18:46:00 Test Item Value Reference Range Interpretation Comments UA Spec Grav (test code = UA Spec Grav) 1.010 [facility] AND [id number] 18:46:00 Test Item Value Reference Range Interpretation Comments UA Color (test code = Light Yellow UA Color) *NA*(07/22/14 1:46 PM) [facility] [id number] 18:46:00 Test Item Value Reference Range Interpretation Comments Magnesium Lvl (test code = Magnesium 1.8 1.8-2.4 Lvl) [facility] HospitalMyixswcEXSTECEIKBPD6186-11-37 18:46:00 Test Item Value Reference Range Interpretation Comments AGAP (test code = AGAP) 13.2 10.0-20.0 [facility] HospitalFcrpylfGUOGGOWIBNOH5261-60-24 18:46:00 Test Item Value Reference Range Interpretation Comments B/C Ratio (test code = B/C Ratio) 18 6-25 [facility] HospitalNglrssgPBHYWMETJWZD1830-46-13 18:46:00 Test Item Value Reference Range Interpretation Comments A/G Ratio (test code = A/G Ratio) 1.1 0.7-1.6 [facility] HospitalBseltopJPSFGFQGVYBU5375-68-35 18:46:00 Test Item Value Reference Range Interpretation Comments Globulin (test code = Globulin) 3.3 2.0-4.0 [facility] HospitalJiockjlIJHPKRTEHFLZ6613-16-58 18:46:00 Test Item Value Reference Range Interpretation Comments eGFR (test code = eGFR) 99 [facility] HospitalFklejbnAFWYPTJQOMBI7834-92-76 18:46:00 Test Item Value Reference Range Interpretation Comments Calcium Lvl (test code = Calcium Lvl) 9.0 8.5-10.5 [facility] HospitalPpllkueXAKTQCWJDPFN5261-75-12 18:46:00 Test Item Value Reference Range Interpretation Comments Chloride Lvl (test code = Chloride Lvl) 106 95-109 [facility] HospitalTuwlraoRYBHVVWZPBLH9992-10-05 18:46:00 Test Item Value Reference Range Interpretation Comments Creatinine Lvl (test code = Creatinine 0.9 0.5-1.4 Lvl) [facility] HospitalLbmywdpKHQEYOQOYRTQ4263-07-49 18:46:00 Test Item Value Reference Range Interpretation Comments Potassium Lvl (test code = Potassium 4.2 3.5-5.1 Lvl) [facility] HospitalDvriprfYIUEFHFIQZCI0339-22-72 18:46:00 Test Item Value Reference Range Interpretation Comments Sodium Lvl (test code = Sodium Lvl) 139 135-145 [facility] HospitalSmrslceUHDVPVXZMXIB2832-90-97 18:46:00 Test Item Value Reference Range Interpretation Comments CO2 (test code = CO2) 24 24-32 [facility] HospitalXqjlofzNJGYFZLZTFUY2299-64-15 18:46:00 Test Item Value Reference Range Interpretation Comments BUN (test code = BUN) 16 7-22 [facility] HospitalVvjxsxwDOEUDDZUKCBC4456-61-68 18:46:00 Test Item Value Reference Range Interpretation Comments Glucose Lvl (test code = Glucose Lvl) 141 70-99 [facility] HospitalBontujrIBLHVFPDJALV1875-48-19 18:46:00 Test Item Value Reference Range Interpretation Comments Albumin Lvl (test code = Albumin Lvl) 3.6 3.5-5.0 [facility] HospitalYgqbzdnXDEJLWKVKAMY0528-31-82 18:46:00 Test Item Value Reference Range Interpretation Comments Alk Phos (test code = Alk Phos) 65 39-136 [facility] HospitalWlfkhikSGCBJFVXWIXZ8270-01-40 18:46:00 Test Item Value Reference Range Interpretation Comments Bili Total (test code = Bili Total) 0.3 0.2-1.3 [facility] HospitalXasztpcAMXSYYJCHHRH5506-41-56 18:46:00 Test Item Value Reference Range Interpretation Comments ALT (test code = ALT) 100 See_Comment [Auto mated message] The system which ge nerated this result transmit elizabeth reference range : <=65. The reference range was not used to interpr et this result as margaret l/abnormal. [facility] HospitalMokzduoLPBGLPUMZXHM8277-60-79 18:46:00 Test Item Value Reference Range Interpretation Comments AST (test code = AST) 53 See_Comment [Auto mated message] The system which ge nerated this result transmit elizabeth reference range : <=37. The reference range was not used to interpr et this result as margaret l/abnormal. [facility] HospitalDgblwmqEDASINDKEXJC5887-07-44 18:46:00 Test Item Value Reference Range Interpretation Comments Total Protein (test code = Total 6.9 6.4-8.4 Protein) [facility]burgZtnmovaUGASKFZAXL3703-76-70 18:46:00 Test Item Value Reference Range Interpretation Comments Eosinophils (test code = 4.2 See_Comment [A utomated message] The Eosinophils) system which ge nerated this result tra nsmitted reference range : <=4.0. The reference r mitra was not used to int erpret this result as normal/abnormal . [facility]burgGbbkunyVUJRKIWZKD7604-93-71 18:46:00 Test Item Value Reference Range Interpretation Comments Segs (test code = Segs) 56.4 45.0-75.0 [facility]burgJvgveocZXKXLVTNRI8436-46-53 18:46:00 Test Item Value Reference Range Interpretation Comments Monocytes (test code = Monocytes) 10.3 2.0-12.0 [facility]burgLgagjzmMCWJFDBJRK6860-16-57 18:46:00 Test Item Value Reference Range Interpretation Comments Lymphocytes (test code = Lymphocytes) 28.0 20.0-40.0 [facility]burgExjclbuMRCNPCKRFQ3976-18-48 18:46:00 Test Item Value Reference Range Interpretation Comments Monocytes # (test code 0.5 See_Comment [Aut omated message] The = Monocytes #) system which generated this result tra nsmitted reference range : <=0.8. The reference r mitra was not used to int erpret this result as normal/abnormal . [facility]burgOrykgelGUJLLIFHMB2675-24-73 18:46:00 Test Item Value Reference Range Interpretation Comments Basophils (test code = 1.1 See_Comment [Aut omated message] The Basophils) system which ge nerated this result tra nsmitted reference range : <=1.0. The reference r mitra was not used to int erpret this result as normal/abnormal . [facility]inburgMeelrylCVNEHOPHYR2743-58-13 18:46:00 Test Item Value Reference Range Interpretation Comments Lymphocytes # (test code = Lymphocytes 1.5 1.0-5.5 #) [facility]burgRjloktzAJLHQQFDFU3445-75-60 18:46:00 Test Item Value Reference Range Interpretation Comments Segs-Bands # (test code = Segs-Bands #) 2.9 1.5-8.1 [facility]burgRmxfgqqRXGEUEUROU4309-94-17 18:46:00 Test Item Value Reference Range Interpretation Comments Eosinophils # (test code 0.2 See_Comment [A utomated message] The = Eosinophils #) system whic h generated this result tra nsmitted reference range : <=0.5. The reference r mitra was not used to int erpret this result as normal/abnormal . [facility]burgZpfdfxfDGKEDWKITW6164-57-03 18:46:00 Test Item Value Reference Range Interpretation Comments Basophils # (test code 0.1 See_Comment [Aut omated message] The = Basophils #) system which generated this result tra nsmitted reference range : <=0.2. The reference r mitra was not used to int erpret this result as normal/abnormal . [facility]burgKbxpencEMVYNIVLGL3375-93-93 18:46:00 Test Item Value Reference Range Interpretation Comments PT (test code = PT) 11.2 s 12.0-14.7 [facility]burgKanodfgHLZBIHDLFR0222-82-55 18:46:00 Test Item Value Reference Range Interpretation Comments INR (test code = INR) 0.82 0.85-1.17 [facility]burgZdsyigkOEUCMNTORS3797-26-60 18:46:00 Test Item Value Reference Range Interpretation Comments PTT (test code = PTT) 28.6 s 22.9-35.8 [facility]burgDktenvfWSBLFOISZP7181-48-36 18:46:00 Test Item Value Reference Range Interpretation Comments MPV (test code = MPV) 8.1 7.4-10.4 [facility]burgNdzwornYWTXZWVTPE9206-40-19 18:46:00 Test Item Value Reference Range Interpretation Comments Platelet (test code = Platelet) 301 133-450 [facility]inburgTlqhnnhQZLQENVCWD5775-23-49 18:46:00 Test Item Value Reference Range Interpretation Comments RDW (test code = RDW) 14.5 11.5-14.5 [facility]burgAkyuhqkBPROWKBZCH2256-85-44 18:46:00 Test Item Value Reference Range Interpretation Comments RBC (test code = RBC) 4.84 4.70-6.10 [facility]burgWenucpfAZTFIRPISP4862-89-80 18:46:00 Test Item Value Reference Range Interpretation Comments Hgb (test code = Hgb) 14.4 14.0-18.0 [facility]burgIxaswqrRTLITIQBAX0537-83-91 18:46:00 Test Item Value Reference Range Interpretation Comments WBC (test code = WBC) 5.2 3.7-10.4 [facility]burgNdegvlqFOIRHVLCND6598-54-25 18:46:00 Test Item Value Reference Range Interpretation Comments MCH (test code = MCH) 29.8 pg 27.0-31.0 [facility]burgPecbkmuHUYXCLAAWF0927-55-99 18:46:00 Test Item Value Reference Range Interpretation Comments MCV (test code = MCV) 92.0 80.0-94.0 [facility]burgBgrcbswLFCYIAKRAO3168-37-44 18:46:00 Test Item Value Reference Range Interpretation Comments Hct (test code = Hct) 44.5 42.0-54.0 [facility]burgRfmjfckGTLGYDJSNI9005-23-48 18:46:00 Test Item Value Reference Range Interpretation Comments MCHC (test code = MCHC) 32.4 32.0-36.0 [facility]AROYDQXM5840[facility] 18:46:00 Test Item Value Reference Range Interpretation Comments Elroy-Hep C Ab (test Negative *NA*(07/22/14 code = Elroy-Hep C 1:46 PM) Ab) [facility] AND [id number] 18:46:00 Test Item Value Reference Range Interpretation Comments UA Urobilinogen (test code = UA <=1.0 mg/dL 0.1-1.0 Urobilinogen) [facility] AND [id number] 18:46:00 Test Item Value Reference Range Interpretation Comments UA Sq Epi (test code = UA Sq Epi) None Seen [facility] AND [id number] 18:46:00 Test Item Value Reference Range Interpretation Comments UA Leuk Est (test Negative (07/22/14 1:46 code = UA Leuk Est) PM) [facility] AND [id number] 18:46:00 Test Item Value Reference Range Interpretation Comments UA Nitrite (test code Negative (07/22/14 1:46 = UA Nitrite) PM) [facility] AND [id number] 18:46:00 Test Item Value Reference Range Interpretation Comments UA Blood (test code = Negative (07/22/14 1:46 UA Blood) PM) [facility] AND [id number] 18:46:00 Test Item Value Reference Range Interpretation Comments UA Ketones (test code = UA Negative mg/dL Ketones) [facility] AND [id number] 18:46:00 Test Item Value Reference Range Interpretation Comments UA Bili (test code = Negative *NA*(07/22/14 UA Bili) 1:46 PM) [facility] AND [id number] 18:46:00 Test Item Value Reference Range Interpretation Comments UA Bacteria (test code = UA Occasional /HPF Bacteria) [facility] AND [id number] 18:46:00 Test Item Value Reference Range Interpretation Comments UA RBC (test code = no gt See_Comment [Automa elizabeth message] The UA RBC) system which ge nerated this result transmit elizabeth reference range : <=2. The reference range was not used to interpr et this result as margaret l/abnormal. [facility] AND [id number] 18:46:00 Test Item Value Reference Range Interpretation Comments UA WBC (test code = 1 See_Comment [Automa elizabeth message] The UA WBC) system which ge nerated this result transmit elizabeth reference range : <=5. The reference range was not used to interpr et this result as margaret l/abnormal. [facility] AND [id number] 18:46:00 Test Item Value Reference Range Interpretation Comments UA Glucose (test code = UA Glucose) 30 mg/dL [facility] AND [id number] 18:46:00 Test Item Value Reference Range Interpretation Comments UA Protein (test code = UA Negative mg/dL Protein) [facility] AND [id number] 18:46:00 Test Item Value Reference Range Interpretation Comments UA pH (test code = UA pH) 6.5 5.0-8.0 [facility] AND [id number] 18:46:00 Test Item Value Reference Range Interpretation Comments UA Turbidity (test code = Clear (07/22/14 1:46 UA Turbidity) PM) [facility] AND [id number] 18:46:00 Test Item Value Reference Range Interpretation Comments UA Spec Grav (test code = UA Spec Grav) 1.010 [facility] AND [id number] 18:46:00 Test Item Value Reference Range Interpretation Comments UA Color (test code = Light Yellow UA Color) *NA*(07/22/14 1:46 PM) [facility] [id number] 18:46:00 Test Item Value Reference Range Interpretation Comments Magnesium Lvl (test code = Magnesium 1.8 1.8-2.4 Lvl) [facility]upshnATUEHIOPIZLR4893-38-56 18:46:00 Test Item Value Reference Range Interpretation Comments AGAP (test code = AGAP) 13.2 10.0-20.0 [facility] HospitalJwyqmfsHRGIFTHBCEHD4657-51-02 18:46:00 Test Item Value Reference Range Interpretation Comments B/C Ratio (test code = B/C Ratio) 18 6-25 [facility] HospitalLcfwbusEMVCIDREJXGS4837-91-11 18:46:00 Test Item Value Reference Range Interpretation Comments A/G Ratio (test code = A/G Ratio) 1.1 0.7-1.6 [facility]EzdkflyJPUWBKYQIVQL6528-[facility]-02 18:46:00 Test Item Value Reference Range Interpretation Comments Globulin (test code = Globulin) 3.3 2.0-4.0 [facility] HospitalFyfddngVTVREQRDWSNT8330-71-23 18:46:00 Test Item Value Reference Range Interpretation Comments eGFR (test code = eGFR) 99 [facility] HospitalOgmzlwmWESBUTGYOVDK5585-84-07 18:46:00 Test Item Value Reference Range Interpretation Comments Calcium Lvl (test code = Calcium Lvl) 9.0 8.5-10.5 [facility] HospitalHlzdhrvYIAVZAJXEHSO3971-99-92 18:46:00 Test Item Value Reference Range Interpretation Comments Chloride Lvl (test code = Chloride Lvl) 106 95-109 [facility] HospitalWtdlckdLEYKFVLQXQOP4264-78-35 18:46:00 Test Item Value Reference Range Interpretation Comments Creatinine Lvl (test code = Creatinine 0.9 0.5-1.4 Lvl) [facility] HospitalFxsinnjGKELSAHINVTY8564-56-74 18:46:00 Test Item Value Reference Range Interpretation Comments Potassium Lvl (test code = Potassium 4.2 3.5-5.1 Lvl) [facility] HospitalXvonndvRHDNUJSJHBQI3467-78-96 18:46:00 Test Item Value Reference Range Interpretation Comments Sodium Lvl (test code = Sodium Lvl) 139 135-145 [facility] HospitalStkpfrmWRNGDWHUSQXS8839-76-28 18:46:00 Test Item Value Reference Range Interpretation Comments CO2 (test code = CO2) 24 24-32 [facility] HospitalOmmmwmbDISOVTQIGNUA3817-40-58 18:46:00 Test Item Value Reference Range Interpretation Comments BUN (test code = BUN) 16 7-22 [facility] HospitalVsrdpjlSPWJQIEXTDWX0936-77-49 18:46:00 Test Item Value Reference Range Interpretation Comments Glucose Lvl (test code = Glucose Lvl) 141 70-99 [facility] HospitalHaxfgncBFRUERDAUQIM4716-34-89 18:46:00 Test Item Value Reference Range Interpretation Comments Albumin Lvl (test code = Albumin Lvl) 3.6 3.5-5.0 [facility] HospitalEnjscugGDLCVSPBUIGP2689-76-58 18:46:00 Test Item Value Reference Range Interpretation Comments Alk Phos (test code = Alk Phos) 65 39-136 [facility] HospitalYljpoqvTGLGVDRBAGBS5909-69-86 18:46:00 Test Item Value Reference Range Interpretation Comments Bili Total (test code = Bili Total) 0.3 0.2-1.3 [facility] HospitalIbbonksUUBJRXCDYSPL0238-69-80 18:46:00 Test Item Value Reference Range Interpretation Comments ALT (test code = ALT) 100 See_Comment [Auto mated message] The system which ge nerated this result transmit elizabeth reference range : <=65. The reference range was not used to interpr et this result as margaret l/abnormal. [facility] HospitalDjbjvpcVZHPZMCZPVEA0512-89-41 18:46:00 Test Item Value Reference Range Interpretation Comments AST (test code = AST) 53 See_Comment [Auto mated message] The system which ge nerated this result transmit elizabeth reference range : <=37. The reference range was not used to interpr et this result as margaret l/abnormal. [facility] HospitalMeukmdyMXOPQZYZVLBC2346-47-94 18:46:00 Test Item Value Reference Range Interpretation Comments Total Protein (test code = Total 6.9 6.4-8.4 Protein) [facility]HijcnekSTBSPOEWDV4805-91-69 18:46:00 Test Item Value Reference Range Interpretation Comments Eosinophils (test code = 4.2 See_Comment [A utomated message] The Eosinophils) system which ge nerated this result tra nsmitted reference range : <=4.0. The reference r mitra was not used to int erpret this result as normal/abnormal . [facility]burgJlpcwrpKLBKKJQOXP4615-16-70 18:46:00 Test Item Value Reference Range Interpretation Comments Segs (test code = Segs) 56.4 45.0-75.0 [facility]burgDlohzyqSGTMCUOAJC2481-03-17 18:46:00 Test Item Value Reference Range Interpretation Comments Monocytes (test code = Monocytes) 10.3 2.0-12.0 [facility]burgIofcwiaEERBPGYAOE9751-81-36 18:46:00 Test Item Value Reference Range Interpretation Comments Lymphocytes (test code = Lymphocytes) 28.0 20.0-40.0 [place] [id number] 18:46:00 Test Item Value Reference Range Interpretation Comments Monocytes # (test code 0.5 See_Comment [Aut omated message] The = Monocytes #) system which generated this result tra nsmitted reference range : <=0.8. The reference r mitra was not used to int erpret this result as normal/abnormal . [facility]burgAbvsohxLCGGMLQXMR4055-27-24 18:46:00 Test Item Value Reference Range Interpretation Comments Basophils (test code = 1.1 See_Comment [Aut omated message] The Basophils) system which ge nerated this result tra nsmitted reference range : <=1.0. The reference r mitra was not used to int erpret this result as normal/abnormal . [facility]burgKrzvpxiYJYDSJWDBR4683-62-03 18:46:00 Test Item Value Reference Range Interpretation Comments Lymphocytes # (test code = Lymphocytes 1.5 1.0-5.5 #) [facility]burgVhvszqzKYQIACLNZI7125-31-20 18:46:00 Test Item Value Reference Range Interpretation Comments Segs-Bands # (test code = Segs-Bands #) 2.9 1.5-8.1 [facility]burgAkxbaqkDZGOJGUPMQ9924-47-00 18:46:00 Test Item Value Reference Range Interpretation Comments Eosinophils # (test code 0.2 See_Comment [A utomated message] The = Eosinophils #) system whic h generated this result tra nsmitted reference range : <=0.5. The reference r mitra was not used to int erpret this result as normal/abnormal . [facility]burgCyjvfseITDFFKZJEQ6666-30-33 18:46:00 Test Item Value Reference Range Interpretation Comments Basophils # (test code 0.1 See_Comment [Aut omated message] The = Basophils #) system which generated this result tra nsmitted reference range : <=0.2. The reference r mitra was not used to int erpret this result as normal/abnormal . [facility]burgQlezwjfBYJIMQUKAB1323-33-62 18:46:00 Test Item Value Reference Range Interpretation Comments PT (test code = PT) 11.2 s 12.0-14.7 [facility]burgVfnjvzrSNZKFARFVL4013-81-46 18:46:00 Test Item Value Reference Range Interpretation Comments INR (test code = INR) 0.82 0.85-1.17 [facility]burgRvjcdiiPFPRAYLYKQ6072-14-33 18:46:00 Test Item Value Reference Range Interpretation Comments PTT (test code = PTT) 28.6 s 22.9-35.8 [facility]burgBvpoktpUSTVULFKDU6352-21-15 18:46:00 Test Item Value Reference Range Interpretation Comments MPV (test code = MPV) 8.1 7.4-10.4 [facility]burgQlrrduiMNPLQEIDBI4030-20-38 18:46:00 Test Item Value Reference Range Interpretation Comments Platelet (test code = Platelet) 301 133-450 [facility]burgYqtntzaGGMXXJBJCT8550-21-77 18:46:00 Test Item Value Reference Range Interpretation Comments RDW (test code = RDW) 14.5 11.5-14.5 [facility]ybllNCVCDDETIV7814-26-55 18:46:00 Test Item Value Reference Range Interpretation Comments RBC (test code = RBC) 4.84 4.70-6.10 [facility]RfpoumcSYDALKTLVP3729-90-52 18:46:00 Test Item Value Reference Range Interpretation Comments Hgb (test code = Hgb) 14.4 14.0-18.0 [facility]burgXictxmtLCMSTPOHUM3713-64-91 18:46:00 Test Item Value Reference Range Interpretation Comments WBC (test code = WBC) 5.2 3.7-10.4 [facility]burgYjjfeuhZEUIXRHYNR8729-40-60 18:46:00 Test Item Value Reference Range Interpretation Comments MCH (test code = MCH) 29.8 pg 27.0-31.0 [facility]burgJcvgbtcKFSSOKHQAP6377-74-81 18:46:00 Test Item Value Reference Range Interpretation Comments MCV (test code = MCV) 92.0 80.0-94.0 [facility] HospitalGrcjauoFHAIZCWMSA9748-37-89 18:46:00 Test Item Value Reference Range Interpretation Comments Hct (test code = Hct) 44.5 42.0-54.0 [facility] HospitalRjkwxdjMKBPFOXXMR8736-71-18 18:46:00 Test Item Value Reference Range Interpretation Comments MCHC (test code = MCHC) 32.4 32.0-36.0 [facility]TvgkrinONTWIRWKDU3802-28-26 18:46:00 Test Item Value Reference Range Interpretation Comments Elroy-Hep C Ab (test Negative *NA*(07/22/14 code = Elroy-Hep C 1:46 PM) Ab) [facility] AND [id number] 18:46:00 Test Item Value Reference Range Interpretation Comments UA Urobilinogen (test code = UA <=1.0 mg/dL 0.1-1.0 Urobilinogen) [facility] AND [id number] 18:46:00 Test Item Value Reference Range Interpretation Comments UA Sq Epi (test code = UA Sq Epi) None Seen [facility] AND [id number] 18:46:00 Test Item Value Reference Range Interpretation Comments UA Leuk Est (test Negative (07/22/14 1:46 code = UA Leuk Est) PM) [facility] AND [id number] 18:46:00 Test Item Value Reference Range Interpretation Comments UA Nitrite (test code Negative (07/22/14 1:46 = UA Nitrite) PM) [facility] AND [id number] 18:46:00 Test Item Value Reference Range Interpretation Comments UA Blood (test code = Negative (07/22/14 1:46 UA Blood) PM) [facility] AND [id number] 18:46:00 Test Item Value Reference Range Interpretation Comments UA Ketones (test code = UA Negative mg/dL Ketones) [facility] AND [id number] 18:46:00 Test Item Value Reference Range Interpretation Comments UA Bili (test code = Negative *NA*(07/22/14 UA Bili) 1:46 PM) [facility] AND [id number] 18:46:00 Test Item Value Reference Range Interpretation Comments UA Bacteria (test code = UA Occasional /HPF Bacteria) [facility] AND [id number] 18:46:00 Test Item Value Reference Range Interpretation Comments UA RBC (test code = no gt See_Comment [Automa elizabeth message] The UA RBC) system which ge nerated this result transmit elizabeth reference range : <=2. The reference range was not used to interpr et this result as margaret l/abnormal. [facility] AND [id number] 18:46:00 Test Item Value Reference Range Interpretation Comments UA WBC (test code = 1 See_Comment [Automa elizabeth message] The UA WBC) system which ge nerated this result transmit elizabeth reference range : <=5. The reference range was not used to interpr et this result as margaret l/abnormal. [facility] AND [id number] 18:46:00 Test Item Value Reference Range Interpretation Comments UA Glucose (test code = UA Glucose) 30 mg/dL [facility] AND [id number] 18:46:00 Test Item Value Reference Range Interpretation Comments UA Protein (test code = UA Negative mg/dL Protein) [facility] AND [id number] 18:46:00 Test Item Value Reference Range Interpretation Comments UA pH (test code = UA pH) 6.5 5.0-8.0 [facility] AND [id number] 18:46:00 Test Item Value Reference Range Interpretation Comments UA Turbidity (test code = Clear (07/22/14 1:46 UA Turbidity) PM) [facility] [id number] 18:46:00 Test Item Value Reference Range Interpretation Comments UA Spec Grav (test code = UA Spec Grav) 1.010 [facility] AND [id number] 18:46:00 Test Item Value Reference Range Interpretation Comments UA Color (test code = Light Yellow UA Color) *NA*(07/22/14 1:46 PM) [facility]annCHE[facility] [id number] 18:46:00 Test Item Value Reference Range Interpretation Comments Magnesium Lvl (test code = Magnesium 1.8 1.8-2.4 Lvl) [facility] HospitalTrupvrgEKNIILPTYVTD7619-88-72 18:46:00 Test Item Value Reference Range Interpretation Comments AGAP (test code = AGAP) 13.2 10.0-20.0 [facility] HospitalVvfbnnjFVIIIEOMTQVH2311-73-28 18:46:00 Test Item Value Reference Range Interpretation Comments B/C Ratio (test code = B/C Ratio) 18 6-25 [facility] HospitalUpsmsilPDNBDFRYULWN0912-17-91 18:46:00 Test Item Value Reference Range Interpretation Comments A/G Ratio (test code = A/G Ratio) 1.1 0.7-1.6 [facility] HospitalPmmgllvJGHJADKHZNVC3392-66-79 18:46:00 Test Item Value Reference Range Interpretation Comments Globulin (test code = Globulin) 3.3 2.0-4.0 [facility] HospitalHdqfwkmBJEFYSYGBZUV0031-07-05 18:46:00 Test Item Value Reference Range Interpretation Comments eGFR (test code = eGFR) 99 [facility] HospitalJhobiylGESYQKWWYWKG3067-48-94 18:46:00 Test Item Value Reference Range Interpretation Comments Calcium Lvl (test code = Calcium Lvl) 9.0 8.5-10.5 [facility] HospitalDxqpzwhMQIPPCHXMSYR0021-56-97 18:46:00 Test Item Value Reference Range Interpretation Comments Chloride Lvl (test code = Chloride Lvl) 106 95-109 [facility] HospitalOzgbjzbUXQBUXAIZANZ9478-08-72 18:46:00 Test Item Value Reference Range Interpretation Comments Creatinine Lvl (test code = Creatinine 0.9 0.5-1.4 Lvl) [facility] HospitalItewyewJYTISZBZSDQF7551-70-26 18:46:00 Test Item Value Reference Range Interpretation Comments Potassium Lvl (test code = Potassium 4.2 3.5-5.1 Lvl) [facility] HospitalEijedocYEVGEFEOHVNG4966-91-41 18:46:00 Test Item Value Reference Range Interpretation Comments Sodium Lvl (test code = Sodium Lvl) 139 135-145 [facility] HospitalWlolwzwKIEKZDQEBUKO4658-18-12 18:46:00 Test Item Value Reference Range Interpretation Comments CO2 (test code = CO2) 24 24-32 [facility] HospitalBmwcxgdPKMZFXLIYKGO1058-29-90 18:46:00 Test Item Value Reference Range Interpretation Comments BUN (test code = BUN) 16 7-22 [facility] HospitalUxjaiepNRCKTYSLUUTV9304-16-57 18:46:00 Test Item Value Reference Range Interpretation Comments Glucose Lvl (test code = Glucose Lvl) 141 70-99 [facility] HospitalTdcodeiCKWDIRZWDLPT8794-74-51 18:46:00 Test Item Value Reference Range Interpretation Comments Albumin Lvl (test code = Albumin Lvl) 3.6 3.5-5.0 [facility] HospitalUlgdxzmRCAXJROZQPIU5801-53-18 18:46:00 Test Item Value Reference Range Interpretation Comments Alk Phos (test code = Alk Phos) 65 39-136 [facility] HospitalErcmqglUWZMPCMXEIWW1071-83-15 18:46:00 Test Item Value Reference Range Interpretation Comments Bili Total (test code = Bili Total) 0.3 0.2-1.3 [facility] HospitalFwxogvvBROPTPUXXMET0511-02-93 18:46:00 Test Item Value Reference Range Interpretation Comments ALT (test code = ALT) 100 See_Comment [Auto mated message] The system which ge nerated this result transmit elizabeth reference range : <=65. The reference range was not used to interpr et this result as margaret l/abnormal. [facility] HospitalNhklugtGBUJORYHVUGL0228-70-79 18:46:00 Test Item Value Reference Range Interpretation Comments AST (test code = AST) 53 See_Comment [Auto mated message] The system which ge nerated this result transmit elizabeth reference range : <=37. The reference range was not used to interpr et this result as margaret l/abnormal. [facility] HospitalScgkkliNOKLBTGEOVGK9741-14-49 18:46:00 Test Item Value Reference Range Interpretation Comments Total Protein (test code = Total 6.9 6.4-8.4 Protein) [facility]burgLowyeeoABYCGPDZRI2441-17-08 18:46:00 Test Item Value Reference Range Interpretation Comments Eosinophils (test code = 4.2 See_Comment [A utomated message] The Eosinophils) system which ge nerated this result tra nsmitted reference range : <=4.0. The reference r mitra was not used to int erpret this result as normal/abnormal . [facility]burgSfeiukdWCJUDMKGZM1100-47-79 18:46:00 Test Item Value Reference Range Interpretation Comments Segs (test code = Segs) 56.4 45.0-75.0 [facility]burgZiovxneHHDDQNETRH6828-05-74 18:46:00 Test Item Value Reference Range Interpretation Comments Monocytes (test code = Monocytes) 10.3 2.0-12.0 [facility]burgZilamfkKBFVIVCJBW8533-02-02 18:46:00 Test Item Value Reference Range Interpretation Comments Lymphocytes (test code = Lymphocytes) 28.0 20.0-40.0 [facility]burgZsbidaoCXUQHDVVBU5377-52-68 18:46:00 Test Item Value Reference Range Interpretation Comments Monocytes # (test code 0.5 See_Comment [Aut omated message] The = Monocytes #) system which generated this result tra nsmitted reference range : <=0.8. The reference r mitra was not used to int erpret this result as normal/abnormal . [facility]burgEbygtgqEJMNIBCMRQ5904-85-05 18:46:00 Test Item Value Reference Range Interpretation Comments Basophils (test code = 1.1 See_Comment [Aut omated message] The Basophils) system which ge nerated this result tra nsmitted reference range : <=1.0. The reference r mitra was not used to int erpret this result as normal/abnormal . [facility]burgDxyzydaCBTXMNVNHG4995-98-82 18:46:00 Test Item Value Reference Range Interpretation Comments Lymphocytes # (test code = Lymphocytes 1.5 1.0-5.5 #) [facility]burgGuzdmtrSQDRLJSMFP6490-80-32 18:46:00 Test Item Value Reference Range Interpretation Comments Segs-Bands # (test code = Segs-Bands #) 2.9 1.5-8.1 [facility]burgKzdxtjaGVCJSHHDDC7809-36-77 18:46:00 Test Item Value Reference Range Interpretation Comments Eosinophils # (test code 0.2 See_Comment [A utomated message] The = Eosinophils #) system whic h generated this result tra nsmitted reference range : <=0.5. The reference r mitra was not used to int erpret this result as normal/abnormal . [facility]burgZhsaizhIBMMGBZUUS8987-75-76 18:46:00 Test Item Value Reference Range Interpretation Comments Basophils # (test code 0.1 See_Comment [Aut omated message] The = Basophils #) system which generated this result tra nsmitted reference range : <=0.2. The reference r mitra was not used to int erpret this result as normal/abnormal . [facility]burgIivtqnvPWGEJZVUSA9818-55-06 18:46:00 Test Item Value Reference Range Interpretation Comments PT (test code = PT) 11.2 s 12.0-14.7 [facility]burgFupgkiwSJFFVRCLKW2434-35-68 18:46:00 Test Item Value Reference Range Interpretation Comments INR (test code = INR) 0.82 0.85-1.17 [facility]inburgMgaakwmJAANLNEHAW5259-65-94 18:46:00 Test Item Value Reference Range Interpretation Comments PTT (test code = PTT) 28.6 s 22.9-35.8 [facility]inburgRsvkeonCUQCDODDSQ1318-03-91 18:46:00 Test Item Value Reference Range Interpretation Comments MPV (test code = MPV) 8.1 7.4-10.4 [facility]burgQzvhjjwTNARKDILGN4438-81-06 18:46:00 Test Item Value Reference Range Interpretation Comments Platelet (test code = Platelet) 301 133-450 [facility]burgSwijgorPHIBHOJKPL9289-97-50 18:46:00 Test Item Value Reference Range Interpretation Comments RDW (test code = RDW) 14.5 11.5-14.5 [facility]burgKckhmdjZCMOJMWCCP9286-15-98 18:46:00 Test Item Value Reference Range Interpretation Comments RBC (test code = RBC) 4.84 4.70-6.10 [facility]burgNyvxrpiDWABUZAVXH3093-32-56 18:46:00 Test Item Value Reference Range Interpretation Comments Hgb (test code = Hgb) 14.4 14.0-18.0 [facility]burgBwvvhvuVXUZXIEAYK0154-84-20 18:46:00 Test Item Value Reference Range Interpretation Comments WBC (test code = WBC) 5.2 3.7-10.4 [facility]LlnjdhmGZOHXBVCOE9796-32-66 18:46:00 Test Item Value Reference Range Interpretation Comments MCH (test code = MCH) 29.8 pg 27.0-31.0 [facility]KofweclQVQSMXQHZE8687-29-40 18:46:00 Test Item Value Reference Range Interpretation Comments MCV (test code = MCV) 92.0 80.0-94.0 [facility] HospitalLupadabBNZYVOVZOA6745-42-85 18:46:00 Test Item Value Reference Range Interpretation Comments Hct (test code = Hct) 44.5 42.0-54.0 [facility]UbfdnkcGAXPXJVRTM3123-72-60 18:46:00 Test Item Value Reference Range Interpretation Comments MCHC (test code = MCHC) 32.4 32.0-36.0 [facility]HzxkmldMHQYENZSFO6178-11-96 18:46:00 Test Item Value Reference Range Interpretation Comments [place]-Hep C Ab (test Negative *NA*(07/22/14 code = Elroy-Hep C 1:46 PM) Ab) [facility] AND [id number] 18:46:00 Test Item Value Reference Range Interpretation Comments UA Urobilinogen (test code = UA <=1.0 mg/dL 0.1-1.0 Urobilinogen) [facility] AND [id number] 18:46:00 Test Item Value Reference Range Interpretation Comments UA Sq Epi (test code = UA Sq Epi) None Seen [facility] AND [id number] 18:46:00 Test Item Value Reference Range Interpretation Comments UA Leuk Est (test Negative (07/22/14 1:46 code = UA Leuk Est) PM) [facility] AND [id number] 18:46:00 Test Item Value Reference Range Interpretation Comments UA Nitrite (test code Negative (07/22/14 1:46 = UA Nitrite) PM) [facility] AND [id number] 18:46:00 Test Item Value Reference Range Interpretation Comments UA Blood (test code = Negative (07/22/14 1:46 UA Blood) PM) [facility] AND [id number] 18:46:00 Test Item Value Reference Range Interpretation Comments UA Ketones (test code = UA Negative mg/dL Ketones) [facility] AND [id number] 18:46:00 Test Item Value Reference Range Interpretation Comments UA Bili (test code = Negative *NA*(07/22/14 UA Bili) 1:46 PM) [facility] [id number] 18:46:00 Test Item Value Reference Range Interpretation Comments UA Bacteria (test code = UA Occasional /HPF Bacteria) [facility] AND [id number] 18:46:00 Test Item Value Reference Range Interpretation Comments UA RBC (test code = no gt See_Comment [Automa elizabeth message] The UA RBC) system which ge nerated this result transmit elizaebth reference range : <=2. The reference range was not used to interpr et this result as margaret l/abnormal. [facility] AND [id number] 18:46:00 Test Item Value Reference Range Interpretation Comments UA WBC (test code = 1 See_Comment [Automa elizabeth message] The UA WBC) system which ge nerated this result transmit elizabeth reference range : <=5. The reference range was not used to interpr et this result as margaret l/abnormal. [facility] [id number] 18:46:00 Test Item Value Reference Range Interpretation Comments UA Glucose (test code = UA Glucose) 30 mg/dL [facility] AND [id number] 18:46:00 Test Item Value Reference Range Interpretation Comments UA Protein (test code = UA Negative mg/dL Protein) [facility] [id number] 18:46:00 Test Item Value Reference Range Interpretation Comments UA pH (test code = UA pH) 6.5 5.0-8.0 [facility] [id number] 18:46:00 Test Item Value Reference Range Interpretation Comments UA Turbidity (test code = Clear (07/22/14 1:46 UA Turbidity) PM) [facility] [id number] 18:46:00 Test Item Value Reference Range Interpretation Comments UA Spec Grav (test code = UA Spec Grav) 1.010 [facility] [id number] 18:46:00 Test Item Value Reference Range Interpretation Comments UA Color (test code = Light Yellow UA Color) *NA*(07/22/14 1:46 PM) [facility] [id number] 18:46:00 Test Item Value Reference Range Interpretation Comments Magnesium Lvl (test code = Magnesium 1.8 1.8-2.4 Lvl) [facility]YhockjhAKZKOSVDNCRS7677-94-07 18:46:00 Test Item Value Reference Range Interpretation Comments AGAP (test code = AGAP) 13.2 10.0-20.0 [facility] HospitalIuyoapgAEKIEWAFOHPS9359-92-03 18:46:00 Test Item Value Reference Range Interpretation Comments B/C Ratio (test code = B/C Ratio) 18 6-25 [facility] HospitalSzynqlgAMOWNHIIYJIO6824-18-91 18:46:00 Test Item Value Reference Range Interpretation Comments A/G Ratio (test code = A/G Ratio) 1.1 0.7-1.6 [facility] HospitalWuwbsoyONENSFJYPRSM7503-47-35 18:46:00 Test Item Value Reference Range Interpretation Comments Globulin (test code = Globulin) 3.3 2.0-4.0 [facility] HospitalUnsifmkEAFFGYMLGOLI8389-95-27 18:46:00 Test Item Value Reference Range Interpretation Comments eGFR (test code = eGFR) 99 [facility] HospitalSsewlgfMGAQEYRCNHLY6861-61-55 18:46:00 Test Item Value Reference Range Interpretation Comments Calcium Lvl (test code = Calcium Lvl) 9.0 8.5-10.5 [facility] HospitalEubyplwIBAOWHNPZRLG7445-06-74 18:46:00 Test Item Value Reference Range Interpretation Comments Chloride Lvl (test code = Chloride Lvl) 106 95-109 [facility] HospitalYbktreoNFPSRDTUAQYG5844-45-86 18:46:00 Test Item Value Reference Range Interpretation Comments Creatinine Lvl (test code = Creatinine 0.9 0.5-1.4 Lvl) [facility] HospitalMjlfvynPJFSRSHCXRDW3320-56-65 18:46:00 Test Item Value Reference Range Interpretation Comments Potassium Lvl (test code = Potassium 4.2 3.5-5.1 Lvl) [facility] HospitalJxgolbbNIFXSACZMJRB4407-55-05 18:46:00 Test Item Value Reference Range Interpretation Comments Sodium Lvl (test code = Sodium Lvl) 139 135-145 [facility] HospitalAnejsiaUBGZARDJQOCQ2653-98-74 18:46:00 Test Item Value Reference Range Interpretation Comments CO2 (test code = CO2) 24 24-32 [facility] HospitalYoulnriAXIEGLYUODIP3792-69-79 18:46:00 Test Item Value Reference Range Interpretation Comments BUN (test code = BUN) 16 7-22 [facility] HospitalTwiltweLEEPCFXMTPTY4686-40-58 18:46:00 Test Item Value Reference Range Interpretation Comments Glucose Lvl (test code = Glucose Lvl) 141 70-99 [facility] HospitalCabnuxfHYKGEHNINJTY9917-77-42 18:46:00 Test Item Value Reference Range Interpretation Comments Albumin Lvl (test code = Albumin Lvl) 3.6 3.5-5.0 [facility] HospitalOiytecyMYCUWMYQKUSX5280-29-58 18:46:00 Test Item Value Reference Range Interpretation Comments Alk Phos (test code = Alk Phos) 65 39-136 [facility] HospitalOacbinwLJWJORAAISOA9292-15-21 18:46:00 Test Item Value Reference Range Interpretation Comments Bili Total (test code = Bili Total) 0.3 0.2-1.3 [facility] HospitalXxryiakXESMRHOMSURR4133-03-58 18:46:00 Test Item Value Reference Range Interpretation Comments ALT (test code = ALT) 100 See_Comment [Auto mated message] The system which ge nerated this result transmit elizabeth reference range : <=65. The reference range was not used to interpr et this result as margaret l/abnormal. [facility] HospitalXuvuzzmGUWAZKAMQRXP4273-26-91 18:46:00 Test Item Value Reference Range Interpretation Comments AST (test code = AST) 53 See_Comment [Auto mated message] The system which ge nerated this result transmit elizabeth reference range : <=37. The reference range was not used to interpr et this result as margaret l/abnormal. [facility] HospitalQxsaxzbHMJIRTDJOAQQ1916-62-55 18:46:00 Test Item Value Reference Range Interpretation Comments Total Protein (test code = Total 6.9 6.4-8.4 Protein) [facility]CgmfczvZCZIYVSCKS6654-44-10 18:46:00 Test Item Value Reference Range Interpretation Comments Eosinophils (test code = 4.2 See_Comment [A utomated message] The Eosinophils) system which ge nerated this result tra nsmitted reference range : <=4.0. The reference r mitra was not used to int erpret this result as normal/abnormal . [facility]burgLhnwhrkGDZLBJQFQU3066-68-45 18:46:00 Test Item Value Reference Range Interpretation Comments Segs (test code = Segs) 56.4 45.0-75.0 [facility]burgKyvjpneXPLUDSSIOT7961-18-08 18:46:00 Test Item Value Reference Range Interpretation Comments Monocytes (test code = Monocytes) 10.3 2.0-12.0 [facility]burgMixhewvWSUNFQGAHG5973-33-17 18:46:00 Test Item Value Reference Range Interpretation Comments Lymphocytes (test code = Lymphocytes) 28.0 20.0-40.0 [facility]burgOrwbxgiNNOFXICPCY3325-47-64 18:46:00 Test Item Value Reference Range Interpretation Comments Monocytes # (test code 0.5 See_Comment [Aut omated message] The = Monocytes #) system which generated this result tra nsmitted reference range : <=0.8. The reference r mitra was not used to int erpret this result as normal/abnormal . [facility]burgSvmdyokBLMJBQKIIX3893-23-08 18:46:00 Test Item Value Reference Range Interpretation Comments Basophils (test code = 1.1 See_Comment [Aut omated message] The Basophils) system which ge nerated this result tra nsmitted reference range : <=1.0. The reference r mitra was not used to int erpret this result as normal/abnormal . [facility] EdinburgBsdeuxiZOMLPHAYBO2822-40-91 18:46:00 Test Item Value Reference Range Interpretation Comments Lymphocytes # (test code = Lymphocytes 1.5 1.0-5.5 #) [facility]burgNjwvzzmKFOODFYMJM3839-55-02 18:46:00 Test Item Value Reference Range Interpretation Comments Segs-Bands # (test code = Segs-Bands #) 2.9 1.5-8.1 [facility]inburgUrhfhuuGCRISJSJTK6046-62-47 18:46:00 Test Item Value Reference Range Interpretation Comments Eosinophils # (test code 0.2 See_Comment [A utomated message] The = Eosinophils #) system whic h generated this result tra nsmitted reference range : <=0.5. The reference r mitra was not used to int erpret this result as normal/abnormal . [facility]inburgBiwtuqtYBVVWHDYIR2894-00-81 18:46:00 Test Item Value Reference Range Interpretation Comments Basophils # (test code 0.1 See_Comment [Aut omated message] The = Basophils #) system which generated this result tra nsmitted reference range : <=0.2. The reference r mitra was not used to int erpret this result as normal/abnormal . [facility]burgPrppcfiKYWEMFNAOE5571-33-35 18:46:00 Test Item Value Reference Range Interpretation Comments PT (test code = PT) 11.2 s 12.0-14.7 [facility]burgKsfxaprLSPAILYIHW1344-22-80 18:46:00 Test Item Value Reference Range Interpretation Comments INR (test code = INR) 0.82 0.85-1.17 [facility]burgXgmddacMSBWSMMTFC9651-25-12 18:46:00 Test Item Value Reference Range Interpretation Comments PTT (test code = PTT) 28.6 s 22.9-35.8 [facility]burgBigpbneOGVHSIXZHP6961-52-27 18:46:00 Test Item Value Reference Range Interpretation Comments MPV (test code = MPV) 8.1 7.4-10.4 [place] [id number] 18:46:00 Test Item Value Reference Range Interpretation Comments Platelet (test code = Platelet) 301 133-450 [facility] EdinburgRdpdggbZUVSPGCYBB0708-28-40 18:46:00 Test Item Value Reference Range Interpretation Comments RDW (test code = RDW) 14.5 11.5-14.5 [facility]burgLqbdipoVQCNBFCUZQ3130-74-72 18:46:00 Test Item Value Reference Range Interpretation Comments RBC (test code = RBC) 4.84 4.70-6.10 [facility]inburgIvjttbxGBMXOXGRTY1077-95-31 18:46:00 Test Item Value Reference Range Interpretation Comments Hgb (test code = Hgb) 14.4 14.0-18.0 [facility]inburgHcfhfmrAWLHUTGFXR7337-98-53 18:46:00 Test Item Value Reference Range Interpretation Comments WBC (test code = WBC) 5.2 3.7-10.4 [facility]inburgRxlxgcyVGTXJGKHGM2963-08-11 18:46:00 Test Item Value Reference Range Interpretation Comments MCH (test code = MCH) 29.8 pg 27.0-31.0 [facility]inburgOqkawvzRWBCOWGZER0289-93-30 18:46:00 Test Item Value Reference Range Interpretation Comments MCV (test code = MCV) 92.0 80.0-94.0 [place] [id number] 18:46:00 Test Item Value Reference Range Interpretation Comments Hct (test code = Hct) 44.5 42.0-54.0 [facility]inburgSxthmueMGZAIOQEWP1761-26-86 18:46:00 Test Item Value Reference Range Interpretation Comments MCHC (test code = MCHC) 32.4 32.0-36.0 [facility] HsplmckCJONRNJQAN2951-38-70 18:46:00 Test Item Value Reference Range Interpretation Comments [place]-Hep C Ab (test Negative *NA*(07/22/14 code = [place]-Hep C 1:46 PM) Ab) [facility] [id number] 18:46:00 Test Item Value Reference Range Interpretation Comments UA Urobilinogen (test code = UA <=1.0 mg/dL 0.1-1.0 Urobilinogen) [facility] [id number] 18:46:00 Test Item Value Reference Range Interpretation Comments UA Sq Epi (test code = UA Sq Epi) None Seen [facility] [id number] 18:46:00 Test Item Value Reference Range Interpretation Comments UA Leuk Est (test Negative (07/22/14 1:46 code = UA Leuk Est) PM) [facility] [id number] 18:46:00 Test Item Value Reference Range Interpretation Comments UA Nitrite (test code Negative (07/22/14 1:46 = UA Nitrite) PM) [facility] [id number] 18:46:00 Test Item Value Reference Range Interpretation Comments UA Blood (test code = Negative (07/22/14 1:46 UA Blood) PM) [facility] [id number] 18:46:00 Test Item Value Reference Range Interpretation Comments UA Ketones (test code = UA Negative mg/dL Ketones) [facility] [id number] 18:46:00 Test Item Value Reference Range Interpretation Comments UA Bili (test code = Negative *NA*(07/22/14 UA Bili) 1:46 PM) [facility] [id number] 18:46:00 Test Item Value Reference Range Interpretation Comments UA Bacteria (test code = UA Occasional /HPF Bacteria) [facility] [id number] 18:46:00 Test Item Value Reference Range Interpretation Comments UA RBC (test code = no gt See_Comment [Automa elizabeth message] The UA RBC) system which ge nerated this result transmit elizabeth reference range : <=2. The reference range was not used to interpr et this result as margaret l/abnormal. [facility] AND [id number] 18:46:00 Test Item Value Reference Range Interpretation Comments UA WBC (test code = 1 See_Comment [Automa elizabeth message] The UA WBC) system which ge nerated this result transmit elizabeth reference range : <=5. The reference range was not used to interpr et this result as margaret l/abnormal. [facility] AND [id number] 18:46:00 Test Item Value Reference Range Interpretation Comments UA Glucose (test code = UA Glucose) 30 mg/dL [facility] AND [id number] 18:46:00 Test Item Value Reference Range Interpretation Comments UA Protein (test code = UA Negative mg/dL Protein) [facility] AND [id number] 18:46:00 Test Item Value Reference Range Interpretation Comments UA pH (test code = UA pH) 6.5 5.0-8.0 [facility] AND [id number] 18:46:00 Test Item Value Reference Range Interpretation Comments UA Turbidity (test code = Clear (07/22/14 1:46 UA Turbidity) PM) [facility] AND [id number] 18:46:00 Test Item Value Reference Range Interpretation Comments UA Spec Grav (test code = UA Spec Grav) 1.010 [facility] AND [id number] 18:46:00 Test Item Value Reference Range Interpretation Comments UA Color (test code = Light Yellow UA Color) *NA*(07/22/14 1:46 PM) [facility] [id number] 18:46:00 Test Item Value Reference Range Interpretation Comments Magnesium Lvl (test code = Magnesium 1.8 1.8-2.4 Lvl) [facility]ZdqjwkmWBXKOMHHRXKW4670-10-05 18:46:00 Test Item Value Reference Range Interpretation Comments AGAP (test code = AGAP) 13.2 10.0-20.0 [facility] HospitalRvadikmVOVKEGLQZKNO9296-91-48 18:46:00 Test Item Value Reference Range Interpretation Comments B/C Ratio (test code = B/C Ratio) 18 6-25 [facility] HospitalNcadiruFGUWFNEODEQM2902-64-46 18:46:00 Test Item Value Reference Range Interpretation Comments A/G Ratio (test code = A/G Ratio) 1.1 0.7-1.6 [facility] HospitalFmcvegpTDTYKIBRJTTX5163-93-38 18:46:00 Test Item Value Reference Range Interpretation Comments Globulin (test code = Globulin) 3.3 2.0-4.0 [facility] HospitalQjbvmtjCCMDMEHXRALB3674-92-72 18:46:00 Test Item Value Reference Range Interpretation Comments eGFR (test code = eGFR) 99 [facility] HospitalRbitniuMIYFEIRCKGUN3653-19-29 18:46:00 Test Item Value Reference Range Interpretation Comments Calcium Lvl (test code = Calcium Lvl) 9.0 8.5-10.5 [facility] HospitalAueoagkVYAEBOXRSBFD6565-58-17 18:46:00 Test Item Value Reference Range Interpretation Comments Chloride Lvl (test code = Chloride Lvl) 106 95-109 [facility] HospitalKxpvvfwUSRNLOPCTAEH1797-68-12 18:46:00 Test Item Value Reference Range Interpretation Comments Creatinine Lvl (test code = Creatinine 0.9 0.5-1.4 Lvl) [facility] HospitalYwlxhjaDNLZCBQZDJFA4666-67-79 18:46:00 Test Item Value Reference Range Interpretation Comments Potassium Lvl (test code = Potassium 4.2 3.5-5.1 Lvl) [facility] HospitalYkwrxuoKMBEFORKXJKT6319-88-09 18:46:00 Test Item Value Reference Range Interpretation Comments Sodium Lvl (test code = Sodium Lvl) 139 135-145 [facility] HospitalEwgihmsFTLBVOCXLPNN7890-11-04 18:46:00 Test Item Value Reference Range Interpretation Comments CO2 (test code = CO2) 24 24-32 [facility] HospitalFcerjkrGWRGYLRGMBYE7242-94-30 18:46:00 Test Item Value Reference Range Interpretation Comments BUN (test code = BUN) 16 7-22 [facility] HospitalJmlepwkOJRPVUVHCFMW5658-03-52 18:46:00 Test Item Value Reference Range Interpretation Comments Glucose Lvl (test code = Glucose Lvl) 141 70-99 [facility] HospitalGdgztfhETBXBYSOVMQC5793-07-55 18:46:00 Test Item Value Reference Range Interpretation Comments Albumin Lvl (test code = Albumin Lvl) 3.6 3.5-5.0 [facility] HospitalTnbadxtUVRHSOAVOPIM7879-78-45 18:46:00 Test Item Value Reference Range Interpretation Comments Alk Phos (test code = Alk Phos) 65 39-136 [facility] HospitalIdhbqvlRQWQFAGJMKYI7341-77-73 18:46:00 Test Item Value Reference Range Interpretation Comments Bili Total (test code = Bili Total) 0.3 0.2-1.3 [facility] HospitalNnryeicABBFUQUVNKXP8378-18-96 18:46:00 Test Item Value Reference Range Interpretation Comments ALT (test code = ALT) 100 See_Comment [Auto mated message] The system which ge nerated this result transmit elizabeth reference range : <=65. The reference range was not used to interpr et this result as margaret l/abnormal. [facility] HospitalWldsbhuPIVWWIXCCCYP3844-38-67 18:46:00 Test Item Value Reference Range Interpretation Comments AST (test code = AST) 53 See_Comment [Auto mated message] The system which ge nerated this result transmit elizabeth reference range : <=37. The reference range was not used to interpr et this result as margaret l/abnormal. [facility] HospitalCwiikjlLRGXYJMUDDBD6847-72-64 18:46:00 Test Item Value Reference Range Interpretation Comments Total Protein (test code = Total 6.9 6.4-8.4 Protein) [facility]SxjvjlgVHWHRFZIQE8832-11-06 18:46:00 Test Item Value Reference Range Interpretation Comments Eosinophils (test code = 4.2 See_Comment [A utomated message] The Eosinophils) system which ge nerated this result tra nsmitted reference range : <=4.0. The reference r mitra was not used to int erpret this result as normal/abnormal . [facility]burgSldzhsyPGFLXMMCOX1561-37-19 18:46:00 Test Item Value Reference Range Interpretation Comments Segs (test code = Segs) 56.4 45.0-75.0 [facility]burgJncjwwzLAMGWMNPKA8278-97-25 18:46:00 Test Item Value Reference Range Interpretation Comments Monocytes (test code = Monocytes) 10.3 2.0-12.0 [facility]burgUbpvyfsYMRNGPUMXG1586-40-14 18:46:00 Test Item Value Reference Range Interpretation Comments Lymphocytes (test code = Lymphocytes) 28.0 20.0-40.0 [facility]burgIpwfhamVNYXECNRYC5147-50-45 18:46:00 Test Item Value Reference Range Interpretation Comments Monocytes # (test code 0.5 See_Comment [Aut omated message] The = Monocytes #) system which generated this result tra nsmitted reference range : <=0.8. The reference r mitra was not used to int erpret this result as normal/abnormal . [facility]burgZtzhbfnFFRJJEEAXT0184-43-72 18:46:00 Test Item Value Reference Range Interpretation Comments Basophils (test code = 1.1 See_Comment [Aut omated message] The Basophils) system which ge nerated this result tra nsmitted reference range : <=1.0. The reference r mitra was not used to int erpret this result as normal/abnormal . [facility]inburgFsaxeslNXLURCGEWK1714-06-23 18:46:00 Test Item Value Reference Range Interpretation Comments Lymphocytes # (test code = Lymphocytes 1.5 1.0-5.5 #) [facility]burgVucxpdyRINILNJTMG8671-38-72 18:46:00 Test Item Value Reference Range Interpretation Comments Segs-Bands # (test code = Segs-Bands #) 2.9 1.5-8.1 [facility]burgGdlnzmyOMSLHUZKDL6690-29-64 18:46:00 Test Item Value Reference Range Interpretation Comments Eosinophils # (test code 0.2 See_Comment [A utomated message] The = Eosinophils #) system whic h generated this result tra nsmitted reference range : <=0.5. The reference r mitra was not used to int erpret this result as normal/abnormal . [facility]burgKabfmwiVJQBPXMNMM7916-59-06 18:46:00 Test Item Value Reference Range Interpretation Comments Basophils # (test code 0.1 See_Comment [Aut omated message] The = Basophils #) system which generated this result tra nsmitted reference range : <=0.2. The reference r mitra was not used to int erpret this result as normal/abnormal . [facility]burgMmhljqoJCJMINLUMB8480-70-75 18:46:00 Test Item Value Reference Range Interpretation Comments PT (test code = PT) 11.2 s 12.0-14.7 [facility]inburgRzikakvKFAPRLLJFZ9090-95-89 18:46:00 Test Item Value Reference Range Interpretation Comments INR (test code = INR) 0.82 0.85-1.17 [facility]burgEgdlhkcBXUSYDMLPG6472-59-15 18:46:00 Test Item Value Reference Range Interpretation Comments PTT (test code = PTT) 28.6 s 22.9-35.8 [facility]burgNkspwpyXKCEJIURFA9351-24-97 18:46:00 Test Item Value Reference Range Interpretation Comments MPV (test code = MPV) 8.1 7.4-10.4 [facility]QkluuarMNJGLGRZHM5608-63-45 18:46:00 Test Item Value Reference Range Interpretation Comments Platelet (test code = Platelet) 301 133-450 [facility] HospitalZwivqleLUHZHXCHUK2933-50-01 18:46:00 Test Item Value Reference Range Interpretation Comments RDW (test code = RDW) 14.5 11.5-14.5 [facility] HospitalGyxrmwnOABBNLKJTN4117-92-21 18:46:00 Test Item Value Reference Range Interpretation Comments RBC (test code = RBC) 4.84 4.70-6.10 [facility] HospitalKayllemZCLZSEJJDZ2704-88-50 18:46:00 Test Item Value Reference Range Interpretation Comments Hgb (test code = Hgb) 14.4 14.0-18.0 [facility]burgAikgvhbCWCSAELGJQ6718-29-39 18:46:00 Test Item Value Reference Range Interpretation Comments WBC (test code = WBC) 5.2 3.7-10.4 [facility] HospitalGzffimpKCQHUOTSMO0777-98-82 18:46:00 Test Item Value Reference Range Interpretation Comments MCH (test code = MCH) 29.8 pg 27.0-31.0 [facility]fllUJCPTAQZBM1561-[facility]-45 18:46:00 Test Item Value Reference Range Interpretation Comments MCV (test code = MCV) 92.0 80.0-94.0 [facility]HitjfdqYLXEPZZDJD5367-46-28 18:46:00 Test Item Value Reference Range Interpretation Comments Hct (test code = Hct) 44.5 42.0-54.0 [facility]RqvrtriTENYTIDXNM8111-28-48 18:46:00 Test Item Value Reference Range Interpretation Comments MCHC (test code = MCHC) 32.4 32.0-36.0 [facility]MgtacnxOAFKIVTBQO3761-24-39 18:46:00 Test Item Value Reference Range Interpretation Comments [place]-Hep C Ab (test Negative *NA*(07/22/14 code = [place]-Hep C 1:46 PM) Ab) [facility] AND [id number] 18:46:00 Test Item Value Reference Range Interpretation Comments UA Urobilinogen (test code = UA <=1.0 mg/dL 0.1-1.0 Urobilinogen) [facility] AND [id number] 18:46:00 Test Item Value Reference Range Interpretation Comments UA Sq Epi (test code = UA Sq Epi) None Seen [facility] AND [id number] 18:46:00 Test Item Value Reference Range Interpretation Comments UA Leuk Est (test Negative (07/22/14 1:46 code = UA Leuk Est) PM) [facility] AND [id number] 18:46:00 Test Item Value Reference Range Interpretation Comments UA Nitrite (test code Negative (07/22/14 1:46 = UA Nitrite) PM) [facility] AND [id number] 18:46:00 Test Item Value Reference Range Interpretation Comments UA Blood (test code = Negative (07/22/14 1:46 UA Blood) PM) [facility] AND [id number] 18:46:00 Test Item Value Reference Range Interpretation Comments UA Ketones (test code = UA Negative mg/dL Ketones) [facility] AND [id number] 18:46:00 Test Item Value Reference Range Interpretation Comments UA Bili (test code = Negative *NA*(07/22/14 UA Bili) 1:46 PM) [facility] AND [id number] 18:46:00 Test Item Value Reference Range Interpretation Comments UA Bacteria (test code = UA Occasional /HPF Bacteria) [facility] AND [id number] 18:46:00 Test Item Value Reference Range Interpretation Comments UA RBC (test code = no gt See_Comment [Automa elizabeth message] The UA RBC) system which ge nerated this result transmit elizabeth reference range : <=2. The reference range was not used to interpr et this result as margaret l/abnormal. [facility] AND [id number] 18:46:00 Test Item Value Reference Range Interpretation Comments UA WBC (test code = 1 See_Comment [Automa elizabeth message] The UA WBC) system which ge nerated this result transmit elizabeth reference range : <=5. The reference range was not used to interpr et this result as margaret l/abnormal. [facility] AND [id number] 18:46:00 Test Item Value Reference Range Interpretation Comments UA Glucose (test code = UA Glucose) 30 mg/dL [facility] AND [id number] 18:46:00 Test Item Value Reference Range Interpretation Comments UA Protein (test code = UA Negative mg/dL Protein) [facility] AND [id number] 18:46:00 Test Item Value Reference Range Interpretation Comments UA pH (test code = UA pH) 6.5 5.0-8.0 [facility] [id number] 18:46:00 Test Item Value Reference Range Interpretation Comments UA Turbidity (test code = Clear (07/22/14 1:46 UA Turbidity) PM) [facility] AND [id number] 18:46:00 Test Item Value Reference Range Interpretation Comments UA Spec Grav (test code = UA Spec Grav) 1.010 [facility] AND [id number] 18:46:00 Test Item Value Reference Range Interpretation Comments UA Color (test code = Light Yellow UA Color) *NA*(07/22/14 1:46 PM) [facility] [id number] 18:46:00 Test Item Value Reference Range Interpretation Comments Magnesium Lvl (test code = Magnesium 1.8 1.8-2.4 Lvl) [facility] HospitalTllfopzUHJFFCGITXGH3605-29-61 18:46:00 Test Item Value Reference Range Interpretation Comments AGAP (test code = AGAP) 13.2 10.0-20.0 [facility] HospitalZkbhlvtUEDRCBYOMBPA4020-30-65 18:46:00 Test Item Value Reference Range Interpretation Comments B/C Ratio (test code = B/C Ratio) 18 6-25 [facility] HospitalMpxdhtoJGGCZNMTKBYY9646-88-37 18:46:00 Test Item Value Reference Range Interpretation Comments A/G Ratio (test code = A/G Ratio) 1.1 0.7-1.6 [facility] [facility]wx[facility]JJX[facility]PRWXL2421-37-08 18:46:00 Test Item Value Reference Range Interpretation Comments Globulin (test code = Globulin) 3.3 2.0-4.0 [facility] Hospital[id number] 18:46:00 Test Item Value Reference Range Interpretation Comments eGFR (test code = eGFR) 99 [facility] HospitalYcefhlfCANEKHUQAWCQ4047-58-67 18:46:00 Test Item Value Reference Range Interpretation Comments Calcium Lvl (test code = Calcium Lvl) 9.0 8.5-10.5 [facility] HospitalXgtonqlGCKKYZQOIXIJ5285-49-29 18:46:00 Test Item Value Reference Range Interpretation Comments Chloride Lvl (test code = Chloride Lvl) 106 95-109 [facility] HospitalXfnfpcsBNRQYUXVTKEP6644-12-46 18:46:00 Test Item Value Reference Range Interpretation Comments Creatinine Lvl (test code = Creatinine 0.9 0.5-1.4 Lvl) [facility] HospitalNxkupktIICCRAHHQQGK4235-80-11 18:46:00 Test Item Value Reference Range Interpretation Comments Potassium Lvl (test code = Potassium 4.2 3.5-5.1 Lvl) [facility] HospitalWmmwwngNDTBTIZRQPPO9683-77-48 18:46:00 Test Item Value Reference Range Interpretation Comments Sodium Lvl (test code = Sodium Lvl) 139 135-145 [facility] HospitalQubeijaLWHBIIOYHYBN9765-22-48 18:46:00 Test Item Value Reference Range Interpretation Comments CO2 (test code = CO2) 24 24-32 [facility] HospitalBywrywfBLAWDTCLSKAM1438-19-05 18:46:00 Test Item Value Reference Range Interpretation Comments BUN (test code = BUN) 16 7-22 [facility] HospitalJyntsuoRMVFEJWUJAFD9672-15-21 18:46:00 Test Item Value Reference Range Interpretation Comments Glucose Lvl (test code = Glucose Lvl) 141 70-99 [facility] HospitalTctymzcYLLONPTHEXAX5691-68-41 18:46:00 Test Item Value Reference Range Interpretation Comments Albumin Lvl (test code = Albumin Lvl) 3.6 3.5-5.0 [facility] HospitalOzbukhlZQJIQIAZQYMZ8073-20-32 18:46:00 Test Item Value Reference Range Interpretation Comments Alk Phos (test code = Alk Phos) 65 39-136 [facility] HospitalCczyvgwNZYWHJIXVWTU6584-19-55 18:46:00 Test Item Value Reference Range Interpretation Comments Bili Total (test code = Bili Total) 0.3 0.2-1.3 [facility] HospitalUipqjrqIRWWJSCVQCGS5922-98-24 18:46:00 Test Item Value Reference Range Interpretation Comments ALT (test code = ALT) 100 See_Comment [Auto mated message] The system which ge nerated this result transmit elizabeth reference range : <=65. The reference range was not used to interpr et this result as margaret l/abnormal. [facility] HospitalMbrzmelYTJTCMKXQTIX1173-87-16 18:46:00 Test Item Value Reference Range Interpretation Comments AST (test code = AST) 53 See_Comment [Auto mated message] The system which ge nerated this result transmit elizabeth reference range : <=37. The reference range was not used to interpr et this result as margaret l/abnormal. [facility] HospitalTkglipsMDICTQEMRSAF7049-44-30 18:46:00 Test Item Value Reference Range Interpretation Comments Total Protein (test code = Total 6.9 6.4-8.4 Protein) [facility]DkobyvjDKZSCGRNQI0298-20-34 18:46:00 Test Item Value Reference Range Interpretation Comments Eosinophils (test code = 4.2 See_Comment [A utomated message] The Eosinophils) system which ge nerated this result tra nsmitted reference range : <=4.0. The reference r mitra was not used to int erpret this result as normal/abnormal . [facility]burgVczdxkpAJHWUKSNFJ5832-78-79 18:46:00 Test Item Value Reference Range Interpretation Comments Segs (test code = Segs) 56.4 45.0-75.0 [facility]burgVpdiegaFSFVDDDSBT6256-34-89 18:46:00 Test Item Value Reference Range Interpretation Comments Monocytes (test code = Monocytes) 10.3 2.0-12.0 [facility]burgNtogwqwDNBZOKFVKM5492-00-43 18:46:00 Test Item Value Reference Range Interpretation Comments Lymphocytes (test code = Lymphocytes) 28.0 20.0-40.0 [facility]burgAghclngFEUMVKDQKJ1618-58-83 18:46:00 Test Item Value Reference Range Interpretation Comments Monocytes # (test code 0.5 See_Comment [Aut omated message] The = Monocytes #) system which generated this result tra nsmitted reference range : <=0.8. The reference r mitra was not used to int erpret this result as normal/abnormal . [facility]burgGhuvqcuLPOIUWAEHC3589-01-64 18:46:00 Test Item Value Reference Range Interpretation Comments Basophils (test code = 1.1 See_Comment [Aut omated message] The Basophils) system which ge nerated this result tra nsmitted reference range : <=1.0. The reference r mitra was not used to int erpret this result as normal/abnormal . [facility]burgZoennskDUWKKJSSSL0139-00-19 18:46:00 Test Item Value Reference Range Interpretation Comments Lymphocytes # (test code = Lymphocytes 1.5 1.0-5.5 #) [facility]burgCrygloeUOBKWCCGPT0345-64-13 18:46:00 Test Item Value Reference Range Interpretation Comments Segs-Bands # (test code = Segs-Bands #) 2.9 1.5-8.1 [facility]burgFpegnwiGRGCFPGJKQ8795-55-47 18:46:00 Test Item Value Reference Range Interpretation Comments Eosinophils # (test code 0.2 See_Comment [A utomated message] The = Eosinophils #) system whic h generated this result tra nsmitted reference range : <=0.5. The reference r mitra was not used to int erpret this result as normal/abnormal . [facility]burgTsvkrdbHGIXFXLYGL4483-26-27 18:46:00 Test Item Value Reference Range Interpretation Comments Basophils # (test code 0.1 See_Comment [Aut omated message] The = Basophils #) system which generated this result tra nsmitted reference range : <=0.2. The reference r mitra was not used to int erpret this result as normal/abnormal . [facility]burgQczrsvaJUAGUDUQJI9066-43-34 18:46:00 Test Item Value Reference Range Interpretation Comments PT (test code = PT) 11.2 s 12.0-14.7 [facility]burgUpikxmyHRZCNURLAH5409-68-66 18:46:00 Test Item Value Reference Range Interpretation Comments INR (test code = INR) 0.82 0.85-1.17 [facility]burgUyiwnvnDDGMJSMPFR4507-08-77 18:46:00 Test Item Value Reference Range Interpretation Comments PTT (test code = PTT) 28.6 s 22.9-35.8 [facility]burgDvvzwdfTJXISUZJEB8402-55-85 18:46:00 Test Item Value Reference Range Interpretation Comments MPV (test code = MPV) 8.1 7.4-10.4 [facility]burgAzxenxxBQIJFAIZVE6246-74-50 18:46:00 Test Item Value Reference Range Interpretation Comments Platelet (test code = Platelet) 301 133-450 [facility]inburgLvcyytxPBYKNXKXQS5779-99-17 18:46:00 Test Item Value Reference Range Interpretation Comments RDW (test code = RDW) 14.5 11.5-14.5 [facility]burgSddjbzrIDHLKVCROW1732-29-17 18:46:00 Test Item Value Reference Range Interpretation Comments RBC (test code = RBC) 4.84 4.70-6.10 [facility]burgWrxdkluTOBBXJIBRL6868-75-54 18:46:00 Test Item Value Reference Range Interpretation Comments Hgb (test code = Hgb) 14.4 14.0-18.0 [facility]burgQnaezivDSLSUITPWO3140-01-89 18:46:00 Test Item Value Reference Range Interpretation Comments WBC (test code = WBC) 5.2 3.7-10.4 [facility]burgCfkgpqhIWDXUGUCSG1598-44-47 18:46:00 Test Item Value Reference Range Interpretation Comments MCH (test code = MCH) 29.8 pg 27.0-31.0 [facility]burgRirfrqdNREBSSWXZX8514-24-36 18:46:00 Test Item Value Reference Range Interpretation Comments MCV (test code = MCV) 92.0 80.0-94.0 [facility]burgCanqamiMCQXKKCCUX4162-98-09 18:46:00 Test Item Value Reference Range Interpretation Comments Hct (test code = Hct) 44.5 42.0-54.0 [facility]inburgLmgabsgMBCBRIFYQJ2693-11-76 18:46:00 Test Item Value Reference Range Interpretation Comments MCHC (test code = MCHC) 32.4 32.0-36.0 [facility]DiztdsgHFXIDWCXFK7462-17-19 18:46:00 Test Item Value Reference Range Interpretation Comments Elroy-Hep C Ab (test Negative *NA*(07/22/14 code = Elroy-Hep C 1:46 PM) Ab) [facility] AND [id number] 18:46:00 Test Item Value Reference Range Interpretation Comments UA Urobilinogen (test code = UA <=1.0 mg/dL 0.1-1.0 Urobilinogen) [facility] AND [id number] 18:46:00 Test Item Value Reference Range Interpretation Comments UA Sq Epi (test code = UA Sq Epi) None Seen [facility] AND [id number] 18:46:00 Test Item Value Reference Range Interpretation Comments UA Leuk Est (test Negative (07/22/14 1:46 code = UA Leuk Est) PM) [facility] AND [id number] 18:46:00 Test Item Value Reference Range Interpretation Comments UA Nitrite (test code Negative (07/22/14 1:46 = UA Nitrite) PM) [facility] AND [id number] 18:46:00 Test Item Value Reference Range Interpretation Comments UA Blood (test code = Negative (07/22/14 1:46 UA Blood) PM) [facility] AND [id number] 18:46:00 Test Item Value Reference Range Interpretation Comments UA Ketones (test code = UA Negative mg/dL Ketones) [facility] AND [id number] 18:46:00 Test Item Value Reference Range Interpretation Comments UA Bili (test code = Negative *NA*(07/22/14 UA Bili) 1:46 PM) [facility] AND [id number] 18:46:00 Test Item Value Reference Range Interpretation Comments UA Bacteria (test code = UA Occasional /HPF Bacteria) [facility] AND [id number] 18:46:00 Test Item Value Reference Range Interpretation Comments UA RBC (test code = no gt See_Comment [Automa elizabeth message] The UA RBC) system which ge nerated this result transmit elizabeth reference range : <=2. The reference range was not used to interpr et this result as margaret l/abnormal. [facility] AND [id number] 18:46:00 Test Item Value Reference Range Interpretation Comments UA WBC (test code = 1 See_Comment [Automa elizabeth message] The UA WBC) system which ge nerated this result transmit elizabeth reference range : <=5. The reference range was not used to interpr et this result as margaret l/abnormal. [facility] AND [id number] 18:46:00 Test Item Value Reference Range Interpretation Comments UA Glucose (test code = UA Glucose) 30 mg/dL [facility] AND [id number] 18:46:00 Test Item Value Reference Range Interpretation Comments UA Protein (test code = UA Negative mg/dL Protein) [facility] AND [id number] 18:46:00 Test Item Value Reference Range Interpretation Comments UA pH (test code = UA pH) 6.5 5.0-8.0 [facility] AND [id number] 18:46:00 Test Item Value Reference Range Interpretation Comments UA Turbidity (test code = Clear (07/22/14 1:46 UA Turbidity) PM) [facility] AND [id number] 18:46:00 Test Item Value Reference Range Interpretation Comments UA Spec Grav (test code = UA Spec Grav) 1.010 [facility] [id number] 18:46:00 Test Item Value Reference Range Interpretation Comments UA Color (test code = Light Yellow UA Color) *NA*(07/22/14 1:46 PM) [facility] CrissannCHEM [id number] 18:46:00 Test Item Value Reference Range Interpretation Comments Magnesium Lvl (test code = Magnesium 1.8 1.8-2.4 Lvl) [facility] HospitalGrmukiaSNLOZHSRNTTJ9336-37-13 18:46:00 Test Item Value Reference Range Interpretation Comments AGAP (test code = AGAP) 13.2 10.0-20.0 [facility] HospitalUcvdfuuUJVILEOYBGMX6195-67-05 18:46:00 Test Item Value Reference Range Interpretation Comments B/C Ratio (test code = B/C Ratio) 18 6-25 [facility] HospitalEfbluijDCBDKVGMNIIE9323-00-90 18:46:00 Test Item Value Reference Range Interpretation Comments A/G Ratio (test code = A/G Ratio) 1.1 0.7-1.6 [facility] HospitalPfehicvTDODXISBCVTD4506-26-11 18:46:00 Test Item Value Reference Range Interpretation Comments Globulin (test code = Globulin) 3.3 2.0-4.0 [facility] HospitalLmrubxtBGKJPBUTALBE3131-43-38 18:46:00 Test Item Value Reference Range Interpretation Comments eGFR (test code = eGFR) 99 [facility] HospitalUpcjkukUJGSIRXDBLAI3256-31-82 18:46:00 Test Item Value Reference Range Interpretation Comments Calcium Lvl (test code = Calcium Lvl) 9.0 8.5-10.5 [facility] HospitalMigcxxyWTRZNVBLTMMZ3147-61-67 18:46:00 Test Item Value Reference Range Interpretation Comments Chloride Lvl (test code = Chloride Lvl) 106 95-109 [facility] HospitalRbrnsjoPHVGMLASPTFK4225-49-92 18:46:00 Test Item Value Reference Range Interpretation Comments Creatinine Lvl (test code = Creatinine 0.9 0.5-1.4 Lvl) [facility] HospitalKxiaxrmZSUHVSZVRZDA7444-56-10 18:46:00 Test Item Value Reference Range Interpretation Comments Potassium Lvl (test code = Potassium 4.2 3.5-5.1 Lvl) [facility] HospitalAwuhyjdWTIWYACSFYGI0791-24-68 18:46:00 Test Item Value Reference Range Interpretation Comments Sodium Lvl (test code = Sodium Lvl) 139 135-145 [facility] HospitalGcbhmvwVYVBPOAABLKH6443-15-91 18:46:00 Test Item Value Reference Range Interpretation Comments CO2 (test code = CO2) 24 24-32 [facility] HospitalGaixhblPNWIQYKFSBQM3320-08-09 18:46:00 Test Item Value Reference Range Interpretation Comments BUN (test code = BUN) 16 7-22 [facility] HospitalWqtgrcrICLFJIVBOTVI1967-52-12 18:46:00 Test Item Value Reference Range Interpretation Comments Glucose Lvl (test code = Glucose Lvl) 141 70-99 [facility] HospitalFvdrftlBPOYMYNBTITH5781-19-03 18:46:00 Test Item Value Reference Range Interpretation Comments Albumin Lvl (test code = Albumin Lvl) 3.6 3.5-5.0 [facility] HospitalVlwblrgDLVOTYQMSDOV0523-95-13 18:46:00 Test Item Value Reference Range Interpretation Comments Alk Phos (test code = Alk Phos) 65 39-136 [facility] HospitalXyxlzvzVEVUNSPUQVIH4274-03-38 18:46:00 Test Item Value Reference Range Interpretation Comments Bili Total (test code = Bili Total) 0.3 0.2-1.3 [facility] HospitalMzaanlaBZXILXUOFBQD4197-86-82 18:46:00 Test Item Value Reference Range Interpretation Comments ALT (test code = ALT) 100 See_Comment [Auto mated message] The system which ge nerated this result transmit elizabeth reference range : <=65. The reference range was not used to interpr et this result as margaret l/abnormal. [facility] HospitalOiwaqxgEKPPJKXRFRHK1418-67-97 18:46:00 Test Item Value Reference Range Interpretation Comments AST (test code = AST) 53 See_Comment [Auto mated message] The system which ge nerated this result transmit elizabeth reference range : <=37. The reference range was not used to interpr et this result as margaret l/abnormal. [facility] HospitalJpjiyurSGWPHUTANOJA0886-90-13 18:46:00 Test Item Value Reference Range Interpretation Comments Total Protein (test code = Total 6.9 6.4-8.4 Protein) [facility]DmgljkgRFVIVPFDGS4042-28-15 18:46:00 Test Item Value Reference Range Interpretation Comments Eosinophils (test code = 4.2 See_Comment [A utomated message] The Eosinophils) system which ge nerated this result tra nsmitted reference range : <=4.0. The reference r mitra was not used to int erpret this result as normal/abnormal . [facility]burgAwdildtVHTDEFWVPP2102-39-84 18:46:00 Test Item Value Reference Range Interpretation Comments Segs (test code = Segs) 56.4 45.0-75.0 [facility]burgBjaxtpuJHBNOWIBER9370-58-29 18:46:00 Test Item Value Reference Range Interpretation Comments Monocytes (test code = Monocytes) 10.3 2.0-12.0 [facility]burgSkpoqeyXMMGRJNUFK3919-56-73 18:46:00 Test Item Value Reference Range Interpretation Comments Lymphocytes (test code = Lymphocytes) 28.0 20.0-40.0 [facility]burgFxhrjcuKVJRPTGAXC0138-09-55 18:46:00 Test Item Value Reference Range Interpretation Comments Monocytes # (test code 0.5 See_Comment [Aut omated message] The = Monocytes #) system which generated this result tra nsmitted reference range : <=0.8. The reference r mitra was not used to int erpret this result as normal/abnormal . [facility]burgDepwnvtHDUOLXOQFQ6288-22-10 18:46:00 Test Item Value Reference Range Interpretation Comments Basophils (test code = 1.1 See_Comment [Aut omated message] The Basophils) system which ge nerated this result tra nsmitted reference range : <=1.0. The reference r mitra was not used to int erpret this result as normal/abnormal . [facility]burgWpdsdpnQXDUJZGEKB3017-91-98 18:46:00 Test Item Value Reference Range Interpretation Comments Lymphocytes # (test code = Lymphocytes 1.5 1.0-5.5 #) [facility]burgUfktzayZLMTWGLNSE5430-68-02 18:46:00 Test Item Value Reference Range Interpretation Comments Segs-Bands # (test code = Segs-Bands #) 2.9 1.5-8.1 [facility]burgJmplnlySRTXDECFSZ2627-80-81 18:46:00 Test Item Value Reference Range Interpretation Comments Eosinophils # (test code 0.2 See_Comment [A utomated message] The = Eosinophils #) system whic h generated this result tra nsmitted reference range : <=0.5. The reference r mitra was not used to int erpret this result as normal/abnormal . [facility]burgSmipzaiCSOVCMQTGB9444-24-65 18:46:00 Test Item Value Reference Range Interpretation Comments Basophils # (test code 0.1 See_Comment [Aut omated message] The = Basophils #) system which generated this result tra nsmitted reference range : <=0.2. The reference r mitra was not used to int erpret this result as normal/abnormal . [facility]burgCuyenyyLGAUVQYLFP6971-28-51 18:46:00 Test Item Value Reference Range Interpretation Comments PT (test code = PT) 11.2 s 12.0-14.7 [facility]inburgIpyyasfCHGPUWRHMS3861-38-99 18:46:00 Test Item Value Reference Range Interpretation Comments INR (test code = INR) 0.82 0.85-1.17 [facility]burgGynoijbZUCIROTPBM6373-47-56 18:46:00 Test Item Value Reference Range Interpretation Comments PTT (test code = PTT) 28.6 s 22.9-35.8 [facility]inburgBhiwyniZVYSNIHUGC3795-93-74 18:46:00 Test Item Value Reference Range Interpretation Comments MPV (test code = MPV) 8.1 7.4-10.4 [facility]burgEadiwfiEJBVIZEPSK3224-58-24 18:46:00 Test Item Value Reference Range Interpretation Comments Platelet (test code = Platelet) 301 133-450 [facility]inburgWzisridQHWTAWQKXF5231-33-58 18:46:00 Test Item Value Reference Range Interpretation Comments RDW (test code = RDW) 14.5 11.5-14.5 [facility]burgJdnscqbCCUQYLQQAY4464-76-88 18:46:00 Test Item Value Reference Range Interpretation Comments RBC (test code = RBC) 4.84 4.70-6.10 [facility]burgSpqdrnpDNQUGHQAPL8478-50-59 18:46:00 Test Item Value Reference Range Interpretation Comments Hgb (test code = Hgb) 14.4 14.0-18.0 [facility]inburgLbrsdgyPGXISJOXUA3551-79-54 18:46:00 Test Item Value Reference Range Interpretation Comments WBC (test code = WBC) 5.2 3.7-10.4 [facility]inburgHkliqyzHSBUZTCRWI4585-89-07 18:46:00 Test Item Value Reference Range Interpretation Comments MCH (test code = MCH) 29.8 pg 27.0-31.0 [facility]inburgVtrxxdvXNYPMAYWTV6384-17-92 18:46:00 Test Item Value Reference Range Interpretation Comments MCV (test code = MCV) 92.0 80.0-94.0 [facility]AgliwlbSVMGAYCTBJ1073-81-10 18:46:00 Test Item Value Reference Range Interpretation Comments Hct (test code = Hct) 44.5 42.0-54.0 [facility]BffknzuHVTSMLYPKS0022-91-45 18:46:00 Test Item Value Reference Range Interpretation Comments MCHC (test code = MCHC) 32.4 32.0-36.0 [facility]SwzqfrwBMPNASEJRS2988-83-21 18:46:00 Test Item Value Reference Range Interpretation Comments Elroy-Hep C Ab (test Negative *NA*(07/22/14 code = Elroy-Hep C 1:46 PM) Ab) [facility] AND [id number] 18:46:00 Test Item Value Reference Range Interpretation Comments UA Urobilinogen (test code = UA <=1.0 mg/dL 0.1-1.0 Urobilinogen) [facility] AND [id number] 18:46:00 Test Item Value Reference Range Interpretation Comments UA Sq Epi (test code = UA Sq Epi) None Seen [facility] AND [id number] 18:46:00 Test Item Value Reference Range Interpretation Comments UA Leuk Est (test Negative (07/22/14 1:46 code = UA Leuk Est) PM) [facility] AND [id number] 18:46:00 Test Item Value Reference Range Interpretation Comments UA Nitrite (test code Negative (07/22/14 1:46 = UA Nitrite) PM) [facility] AND [id number] 18:46:00 Test Item Value Reference Range Interpretation Comments UA Blood (test code = Negative (07/22/14 1:46 UA Blood) PM) [facility] AND [id number] 18:46:00 Test Item Value Reference Range Interpretation Comments UA Ketones (test code = UA Negative mg/dL Ketones) [facility] AND [id number] 18:46:00 Test Item Value Reference Range Interpretation Comments UA Bili (test code = Negative *NA*(07/22/14 UA Bili) 1:46 PM) [facility] AND [id number] 18:46:00 Test Item Value Reference Range Interpretation Comments UA Bacteria (test code = UA Occasional /HPF Bacteria) [facility] AND [id number] 18:46:00 Test Item Value Reference Range Interpretation Comments UA RBC (test code = no gt See_Comment [Automa elizabeth message] The UA RBC) system which ge nerated this result transmit elizabeth reference range : <=2. The reference range was not used to interpr et this result as margaret l/abnormal. [facility] AND [id number] 18:46:00 Test Item Value Reference Range Interpretation Comments UA WBC (test code = 1 See_Comment [Automa elizabeth message] The UA WBC) system which ge nerated this result transmit elizabeth reference range : <=5. The reference range was not used to interpr et this result as margaret l/abnormal. [facility] AND [id number] 18:46:00 Test Item Value Reference Range Interpretation Comments UA Glucose (test code = UA Glucose) 30 mg/dL [facility] AND [id number] 18:46:00 Test Item Value Reference Range Interpretation Comments UA Protein (test code = UA Negative mg/dL Protein) [facility] AND [id number] 18:46:00 Test Item Value Reference Range Interpretation Comments UA pH (test code = UA pH) 6.5 5.0-8.0 [facility] AND [id number] 18:46:00 Test Item Value Reference Range Interpretation Comments UA Turbidity (test code = Clear (07/22/14 1:46 UA Turbidity) PM) [facility] AND [id number] 18:46:00 Test Item Value Reference Range Interpretation Comments UA Spec Grav (test code = UA Spec Grav) 1.010 [facility] AND [id number] 18:46:00 Test Item Value Reference Range Interpretation Comments UA Color (test code = Light Yellow UA Color) *NA*(07/22/14 1:46 PM) [facility]annCHEM [id number] 18:46:00 Test Item Value Reference Range Interpretation Comments Magnesium Lvl (test code = Magnesium 1.8 1.8-2.4 Lvl) [facility] CenterMmfyzbqXJNYXSMWSHTV9459-70-36 18:46:00 Test Item Value Reference Range Interpretation Comments AGAP (test code = AGAP) 13.2 10.0-20.0 [facility] HospitalEwmvvqeWPHSPDLFLVOQ5933-35-30 18:46:00 Test Item Value Reference Range Interpretation Comments B/C Ratio (test code = B/C Ratio) 18 6-25 [facility] HospitalJuedtknHQVCQRNJESLB3786-61-17 18:46:00 Test Item Value Reference Range Interpretation Comments A/G Ratio (test code = A/G Ratio) 1.1 0.7-1.6 [facility] HospitalQyssqezWDWZBOJGKNHF2113-65-81 18:46:00 Test Item Value Reference Range Interpretation Comments Globulin (test code = Globulin) 3.3 2.0-4.0 [facility] HospitalRqvhpiyBGKJAZWDXPGC3790-33-75 18:46:00 Test Item Value Reference Range Interpretation Comments eGFR (test code = eGFR) 99 [facility] HospitalLksljtvIWSEFDEMQGQV7095-34-86 18:46:00 Test Item Value Reference Range Interpretation Comments Calcium Lvl (test code = Calcium Lvl) 9.0 8.5-10.5 [facility] HospitalRtnbswjFJAPCMSWBPUX9797-80-11 18:46:00 Test Item Value Reference Range Interpretation Comments Chloride Lvl (test code = Chloride Lvl) 106 95-109 [facility]TzjyktcHKYVOEAFFOXQ7430-17-51 18:46:00 Test Item Value Reference Range Interpretation Comments Creatinine Lvl (test code = Creatinine 0.9 0.5-1.4 Lvl) [facility] HospitalCrekmuhKLNAVERTYNET7901-18-66 18:46:00 Test Item Value Reference Range Interpretation Comments Potassium Lvl (test code = Potassium 4.2 3.5-5.1 Lvl) [facility] HospitalQxuenpeLAZRFVVXMIPC9454-41-85 18:46:00 Test Item Value Reference Range Interpretation Comments Sodium Lvl (test code = Sodium Lvl) 139 135-145 [facility] HospitalIqyonevVTKVBXMXUQCN0806-52-19 18:46:00 Test Item Value Reference Range Interpretation Comments CO2 (test code = CO2) 24 24-32 [facility] HospitalJrviogdLYNIBXGRYQET8341-77-84 18:46:00 Test Item Value Reference Range Interpretation Comments BUN (test code = BUN) 16 7-22 [facility] HospitalQzsjvryWLTGHBLNTYOG6286-75-43 18:46:00 Test Item Value Reference Range Interpretation Comments Glucose Lvl (test code = Glucose Lvl) 141 70-99 [facility] HospitalEkcrtmbUIKGUHPJHFXF4997-31-07 18:46:00 Test Item Value Reference Range Interpretation Comments Albumin Lvl (test code = Albumin Lvl) 3.6 3.5-5.0 [facility] HospitalIcylcjyNLELRQGYIGXY4684-10-22 18:46:00 Test Item Value Reference Range Interpretation Comments Alk Phos (test code = Alk Phos) 65 39-136 [facility] HospitalBmutmxqMNIZZYZMWLEP3004-05-65 18:46:00 Test Item Value Reference Range Interpretation Comments Bili Total (test code = Bili Total) 0.3 0.2-1.3 [facility] HospitalInfyiucSUHEPZSEEABO9911-78-91 18:46:00 Test Item Value Reference Range Interpretation Comments ALT (test code = ALT) 100 See_Comment [Auto mated message] The system which ge nerated this result transmit elizabeth reference range : <=65. The reference range was not used to interpr et this result as margaret l/abnormal. [facility] HospitalPavvmxgOKTXNBSSXYPB8260-16-08 18:46:00 Test Item Value Reference Range Interpretation Comments AST (test code = AST) 53 See_Comment [Auto mated message] The system which ge nerated this result transmit elizabeth reference range : <=37. The reference range was not used to interpr et this result as margaret l/abnormal. [facility] HospitalLgkprfaRYYFHQTYSQPY8506-51-54 18:46:00 Test Item Value Reference Range Interpretation Comments Total Protein (test code = Total 6.9 6.4-8.4 Protein) [facility]FKV[facility]JDFYBJ5392-60-28 18:46:00 Test Item Value Reference Range Interpretation Comments Eosinophils (test code = 4.2 See_Comment [A utomated message] The Eosinophils) system which ge nerated this result tra nsmitted reference range : <=4.0. The reference r mitra was not used to int erpret this result as normal/abnormal . [facility]burgMbnonorQRNZAHEZCO0159-99-10 18:46:00 Test Item Value Reference Range Interpretation Comments Segs (test code = Segs) 56.4 45.0-75.0 [facility]burgFqalplnAPTLQKSKRV3216-94-40 18:46:00 Test Item Value Reference Range Interpretation Comments Monocytes (test code = Monocytes) 10.3 2.0-12.0 [facility]burgVocgkreXUGNMZIZQS8580-31-11 18:46:00 Test Item Value Reference Range Interpretation Comments Lymphocytes (test code = Lymphocytes) 28.0 20.0-40.0 [facility]burgQreqfnlVIZZFQTBCE0369-42-40 18:46:00 Test Item Value Reference Range Interpretation Comments Monocytes # (test code 0.5 See_Comment [Aut omated message] The = Monocytes #) system which generated this result tra nsmitted reference range : <=0.8. The reference r mitra was not used to int erpret this result as normal/abnormal . [facility]burgCxmretpRBPRVQPSQG0589-12-81 18:46:00 Test Item Value Reference Range Interpretation Comments Basophils (test code = 1.1 See_Comment [Aut omated message] The Basophils) system which ge nerated this result tra nsmitted reference range : <=1.0. The reference r mitra was not used to int erpret this result as normal/abnormal . [facility]burgQcgjwccSKPDPNQIYW8432-93-60 18:46:00 Test Item Value Reference Range Interpretation Comments Lymphocytes # (test code = Lymphocytes 1.5 1.0-5.5 #) [facility]burgOacjaicLGMIUBZNDI2375-56-40 18:46:00 Test Item Value Reference Range Interpretation Comments Segs-Bands # (test code = Segs-Bands #) 2.9 1.5-8.1 [facility]burgRujwtotNVPGRTFDZG4376-25-36 18:46:00 Test Item Value Reference Range Interpretation Comments Eosinophils # (test code 0.2 See_Comment [A utomated message] The = Eosinophils #) system whic h generated this result tra nsmitted reference range : <=0.5. The reference r mitra was not used to int erpret this result as normal/abnormal . [facility]burgJyvkevtSJEXNUAABH1217-79-04 18:46:00 Test Item Value Reference Range Interpretation Comments Basophils # (test code 0.1 See_Comment [Aut omated message] The = Basophils #) system which generated this result tra nsmitted reference range : <=0.2. The reference r mitra was not used to int erpret this result as normal/abnormal . [facility]burgPmpkgsbHQDPUUGJEQ7660-28-16 18:46:00 Test Item Value Reference Range Interpretation Comments PT (test code = PT) 11.2 s 12.0-14.7 [facility]burgJidgzwjOXMXRJPCSV6042-53-46 18:46:00 Test Item Value Reference Range Interpretation Comments INR (test code = INR) 0.82 0.85-1.17 [facility]burgUpsorsoZQSCAGNAAV8999-24-05 18:46:00 Test Item Value Reference Range Interpretation Comments PTT (test code = PTT) 28.6 s 22.9-35.8 [facility]burgGebgnrdVXHZZGZDIJ6872-37-28 18:46:00 Test Item Value Reference Range Interpretation Comments MPV (test code = MPV) 8.1 7.4-10.4 [facility]burgQjdcfvgWGPYXEVAEV3682-17-50 18:46:00 Test Item Value Reference Range Interpretation Comments Platelet (test code = Platelet) 301 133-450 [facility]burgZkosfplYVWAUEDILF4062-76-52 18:46:00 Test Item Value Reference Range Interpretation Comments RDW (test code = RDW) 14.5 11.5-14.5 [facility]burgGdcxjkwKRXPUEBEVF1298-02-42 18:46:00 Test Item Value Reference Range Interpretation Comments RBC (test code = RBC) 4.84 4.70-6.10 [facility]burgGhbexgfEQOJMTSZBJ1079-61-27 18:46:00 Test Item Value Reference Range Interpretation Comments Hgb (test code = Hgb) 14.4 14.0-18.0 [facility]burgWojdksfPZYREJJIFS2235-83-31 18:46:00 Test Item Value Reference Range Interpretation Comments WBC (test code = WBC) 5.2 3.7-10.4 [facility]burgPgkzzgbHSZQJRNPTQ8989-71-60 18:46:00 Test Item Value Reference Range Interpretation Comments MCH (test code = MCH) 29.8 pg 27.0-31.0 [facility]burgCdldyahVYOCSIQUNA6373-47-90 18:46:00 Test Item Value Reference Range Interpretation Comments MCV (test code = MCV) 92.0 80.0-94.0 [facility]burgHfyleecNUBAAXIOUP5111-43-66 18:46:00 Test Item Value Reference Range Interpretation Comments Hct (test code = Hct) 44.5 42.0-54.0 [facility]burgZkcytgpPGGVTGUVBE2983-05-48 18:46:00 Test Item Value Reference Range Interpretation Comments MCHC (test code = MCHC) 32.4 32.0-36.0 [facility]ygxvetNDUSHGHDZW0488-90-31 18:46:00 Test Item Value Reference Range Interpretation Comments Elroy-Hep C Ab (test Negative *NA*(07/22/14 code = Elroy-Hep C 1:46 PM) Ab) [facility] AND [id number] 18:46:00 Test Item Value Reference Range Interpretation Comments UA Urobilinogen (test code = UA <=1.0 mg/dL 0.1-1.0 Urobilinogen) [facility] AND [id number] 18:46:00 Test Item Value Reference Range Interpretation Comments UA Sq Epi (test code = UA Sq Epi) None Seen [facility] AND [id number] 18:46:00 Test Item Value Reference Range Interpretation Comments UA Leuk Est (test Negative (07/22/14 1:46 code = UA Leuk Est) PM) [facility] AND [id number] 18:46:00 Test Item Value Reference Range Interpretation Comments UA Nitrite (test code Negative (07/22/14 1:46 = UA Nitrite) PM) [facility] AND [id number] 18:46:00 Test Item Value Reference Range Interpretation Comments UA Blood (test code = Negative (07/22/14 1:46 UA Blood) PM) [facility] AND [id number] 18:46:00 Test Item Value Reference Range Interpretation Comments UA Ketones (test code = UA Negative mg/dL Ketones) [facility] AND [id number] 18:46:00 Test Item Value Reference Range Interpretation Comments UA Bili (test code = Negative *NA*(07/22/14 UA Bili) 1:46 PM) [facility] AND [id number] 18:46:00 Test Item Value Reference Range Interpretation Comments UA Bacteria (test code = UA Occasional /HPF Bacteria) [facility] AND [id number] 18:46:00 Test Item Value Reference Range Interpretation Comments UA RBC (test code = no gt See_Comment [Automa elizabeth message] The UA RBC) system which ge nerated this result transmit elizabeth reference range : <=2. The reference range was not used to interpr et this result as margaret l/abnormal. [facility] AND [id number] 18:46:00 Test Item Value Reference Range Interpretation Comments UA WBC (test code = 1 See_Comment [Automa elizabeth message] The UA WBC) system which ge nerated this result transmit elizabeth reference range : <=5. The reference range was not used to interpr et this result as margaret l/abnormal. [facility] AND [id number] 18:46:00 Test Item Value Reference Range Interpretation Comments UA Glucose (test code = UA Glucose) 30 mg/dL [facility] AND [id number] 18:46:00 Test Item Value Reference Range Interpretation Comments UA Protein (test code = UA Negative mg/dL Protein) [facility] AND [id number] 18:46:00 Test Item Value Reference Range Interpretation Comments UA pH (test code = UA pH) 6.5 5.0-8.0 [facility] AND [id number] 18:46:00 Test Item Value Reference Range Interpretation Comments UA Turbidity (test code = Clear (07/22/14 1:46 UA Turbidity) PM) [facility] AND [id number] 18:46:00 Test Item Value Reference Range Interpretation Comments UA Spec Grav (test code = UA Spec Grav) 1.010 [facility] AND [id number] 18:46:00 Test Item Value Reference Range Interpretation Comments UA Color (test code = Light Yellow UA Color) *NA*(07/22/14 1:46 PM) [facility] [id number] 18:46:00 Test Item Value Reference Range Interpretation Comments Magnesium Lvl (test code = Magnesium 1.8 1.8-2.4 Lvl) [facility] HospitalXawcjbaBJUTDQAIRJYS7575-14-56 18:46:00 Test Item Value Reference Range Interpretation Comments AGAP (test code = AGAP) 13.2 10.0-20.0 [facility] HospitalYtvkpefOWOHHAOPIHQT0173-89-93 18:46:00 Test Item Value Reference Range Interpretation Comments B/C Ratio (test code = B/C Ratio) 18 6-25 [facility] HospitalZqfkrnwBYLWFBAMGGNF0025-54-31 18:46:00 Test Item Value Reference Range Interpretation Comments A/G Ratio (test code = A/G Ratio) 1.1 0.7-1.6 [facility] HospitalQbdsjuaLMKJQSFMMFLL0376-29-53 18:46:00 Test Item Value Reference Range Interpretation Comments Globulin (test code = Globulin) 3.3 2.0-4.0 [facility] HospitalDddhwnzABYKKALXNQIC9051-48-93 18:46:00 Test Item Value Reference Range Interpretation Comments eGFR (test code = eGFR) 99 [facility] HospitalAonqvgoCJCVHJYLIIGC2089-51-02 18:46:00 Test Item Value Reference Range Interpretation Comments Calcium Lvl (test code = Calcium Lvl) 9.0 8.5-10.5 [facility] HospitalPgwtcdoSHZWDJFZMAPS5299-17-36 18:46:00 Test Item Value Reference Range Interpretation Comments Chloride Lvl (test code = Chloride Lvl) 106 95-109 [facility] HospitalFijlwdcOGBFORGRAMIQ9393-26-70 18:46:00 Test Item Value Reference Range Interpretation Comments Creatinine Lvl (test code = Creatinine 0.9 0.5-1.4 Lvl) [facility] HospitalSzciataMYBJOSZTVNGS3020-12-86 18:46:00 Test Item Value Reference Range Interpretation Comments Potassium Lvl (test code = Potassium 4.2 3.5-5.1 Lvl) [facility] HospitalZwsjrlmDMXCJGGARIOT4887-06-90 18:46:00 Test Item Value Reference Range Interpretation Comments Sodium Lvl (test code = Sodium Lvl) 139 135-145 [facility] HospitalMejbufeJBHNQOADELYM4431-18-81 18:46:00 Test Item Value Reference Range Interpretation Comments CO2 (test code = CO2) 24 24-32 [facility] HospitalGmqbrrzSAIZMWZSUBZC7217-54-46 18:46:00 Test Item Value Reference Range Interpretation Comments BUN (test code = BUN) 16 7-22 [facility] HospitalJgofysdMOUPQXWTYCPV0812-71-52 18:46:00 Test Item Value Reference Range Interpretation Comments Glucose Lvl (test code = Glucose Lvl) 141 70-99 [facility] HospitalCkszjevQWFBXMLQQSVB2207-32-81 18:46:00 Test Item Value Reference Range Interpretation Comments Albumin Lvl (test code = Albumin Lvl) 3.6 3.5-5.0 [facility] HospitalRderkysJMMRWGXZJURK6368-87-10 18:46:00 Test Item Value Reference Range Interpretation Comments Alk Phos (test code = Alk Phos) 65 39-136 [facility] HospitalIhfrtmfGHSCDCRPRKFV8295-26-38 18:46:00 Test Item Value Reference Range Interpretation Comments Bili Total (test code = Bili Total) 0.3 0.2-1.3 [facility] HospitalKxgonnjGGESSBIDUTBU5201-31-84 18:46:00 Test Item Value Reference Range Interpretation Comments ALT (test code = ALT) 100 See_Comment [Auto mated message] The system which ge nerated this result transmit elizabeth reference range : <=65. The reference range was not used to interpr et this result as margaret l/abnormal. [facility] HospitalFbhptsnOXBNZBOAODXT1036-18-48 18:46:00 Test Item Value Reference Range Interpretation Comments AST (test code = AST) 53 See_Comment [Auto mated message] The system which ge nerated this result transmit elizabeth reference range : <=37. The reference range was not used to interpr et this result as margaret l/abnormal. [facility] HospitalQozrzdaLZYMPBOFTATJ5997-08-82 18:46:00 Test Item Value Reference Range Interpretation Comments Total Protein (test code = Total 6.9 6.4-8.4 Protein) [facility]NsfubfiKSSCZIHDFB0364-70-33 18:46:00 Test Item Value Reference Range Interpretation Comments Eosinophils (test code = 4.2 See_Comment [A utomated message] The Eosinophils) system which ge nerated this result tra nsmitted reference range : <=4.0. The reference r mitra was not used to int erpret this result as normal/abnormal . [facility]burgHlgpsfyVQWIKRKOEJ7578-44-88 18:46:00 Test Item Value Reference Range Interpretation Comments Segs (test code = Segs) 56.4 45.0-75.0 [facility]burgZpheovyRTHLGNZTPL6707-77-40 18:46:00 Test Item Value Reference Range Interpretation Comments Monocytes (test code = Monocytes) 10.3 2.0-12.0 [facility]NbfjvwsADFFJPCJYQ3806-49-44 18:46:00 Test Item Value Reference Range Interpretation Comments Lymphocytes (test code = Lymphocytes) 28.0 20.0-40.0 [facility]SfgfddjFAXOLEYZSZ8430-89-28 18:46:00 Test Item Value Reference Range Interpretation Comments Monocytes # (test code 0.5 See_Comment [Aut omated message] The = Monocytes #) system which generated this result tra nsmitted reference range : <=0.8. The reference r mitra was not used to int erpret this result as normal/abnormal . [facility]burgVimsgfmUCTKGXLICA8721-72-45 18:46:00 Test Item Value Reference Range Interpretation Comments Basophils (test code = 1.1 See_Comment [Aut omated message] The Basophils) system which ge nerated this result tra nsmitted reference range : <=1.0. The reference r mitra was not used to int erpret this result as normal/abnormal . [facility]IspvevyUPKWLDMDQZ2461-71-67 18:46:00 Test Item Value Reference Range Interpretation Comments Lymphocytes # (test code = Lymphocytes 1.5 1.0-5.5 #) [facility]QnfdahkDCYRPNMXAX1490-08-18 18:46:00 Test Item Value Reference Range Interpretation Comments Segs-Bands # (test code = Segs-Bands #) 2.9 1.5-8.1 [facility]NmdynjvDGRVCRJGMC9513-68-99 18:46:00 Test Item Value Reference Range Interpretation Comments Eosinophils # (test code 0.2 See_Comment [A utomated message] The = Eosinophils #) system whic h generated this result tra nsmitted reference range : <=0.5. The reference r mitra was not used to int erpret this result as normal/abnormal . [facility]burgMpqojtnSDGNEFMVPX6133-60-90 18:46:00 Test Item Value Reference Range Interpretation Comments Basophils # (test code 0.1 See_Comment [Aut omated message] The = Basophils #) system which generated this result tra nsmitted reference range : <=0.2. The reference r mitra was not used to int erpret this result as normal/abnormal . [facility]burgWpszqnrXKXWHDPFER8512-02-18 18:46:00 Test Item Value Reference Range Interpretation Comments PT (test code = PT) 11.2 s 12.0-14.7 [facility]burgNnivlrfJORXHJASEV0181-01-94 18:46:00 Test Item Value Reference Range Interpretation Comments INR (test code = INR) 0.82 0.85-1.17 [facility]burgFwzxxefICIYOODJTU2896-87-71 18:46:00 Test Item Value Reference Range Interpretation Comments PTT (test code = PTT) 28.6 s 22.9-35.8 [facility]burgZwnmoyfQCYDKNSZRE2827-94-23 18:46:00 Test Item Value Reference Range Interpretation Comments MPV (test code = MPV) 8.1 7.4-10.4 [facility]GxfxrsnULRFTFTEED5262-67-28 18:46:00 Test Item Value Reference Range Interpretation Comments Platelet (test code = Platelet) 301 133-450 [facility]burgQjpoppnIFMTPPPUGM7475-27-09 18:46:00 Test Item Value Reference Range Interpretation Comments RDW (test code = RDW) 14.5 11.5-14.5 [facility]IbcmmqsPBSETXDJGL4527-39-27 18:46:00 Test Item Value Reference Range Interpretation Comments RBC (test code = RBC) 4.84 4.70-6.10 [facility]CeunvixCFLFJNIHTK2933-75-87 18:46:00 Test Item Value Reference Range Interpretation Comments Hgb (test code = Hgb) 14.4 14.0-18.0 [facility]EelwqmcFXPNWHYQHE6011-48-96 18:46:00 Test Item Value Reference Range Interpretation Comments WBC (test code = WBC) 5.2 3.7-10.4 [facility]NazfdhxMNTVNAHPIM3298-20-53 18:46:00 Test Item Value Reference Range Interpretation Comments MCH (test code = MCH) 29.8 pg 27.0-31.0 [facility]HbadqsuZIRPATRGWF0598-19-36 18:46:00 Test Item Value Reference Range Interpretation Comments MCV (test code = MCV) 92.0 80.0-94.0 [facility]IdvhgmpTSUTSYHINU7595-43-14 18:46:00 Test Item Value Reference Range Interpretation Comments Hct (test code = Hct) 44.5 42.0-54.0 [facility]XyvaquvVJNDCXQYNR9532-92-08 18:46:00 Test Item Value Reference Range Interpretation Comments MCHC (test code = MCHC) 32.4 32.0-36.0 [facility]NltimtbEXZHSVDZQV5699-38-77 18:46:00 Test Item Value Reference Range Interpretation Comments Elroy-Hep C Ab (test Negative *NA*(07/22/14 code = Elroy-Hep C 1:46 PM) Ab) [facility] AND [id number] 18:46:00 Test Item Value Reference Range Interpretation Comments UA Urobilinogen (test code = UA <=1.0 mg/dL 0.1-1.0 Urobilinogen) [facility] [id number] 18:46:00 Test Item Value Reference Range Interpretation Comments UA Sq Epi (test code = UA Sq Epi) None Seen [facility] AND [id number] 18:46:00 Test Item Value Reference Range Interpretation Comments UA Leuk Est (test Negative (07/22/14 1:46 code = UA Leuk Est) PM) [facility] AND [id number] 18:46:00 Test Item Value Reference Range Interpretation Comments UA Nitrite (test code Negative (07/22/14 1:46 = UA Nitrite) PM) [facility] AND [id number] 18:46:00 Test Item Value Reference Range Interpretation Comments UA Blood (test code = Negative (07/22/14 1:46 UA Blood) PM) [facility] AND [id number] 18:46:00 Test Item Value Reference Range Interpretation Comments UA Ketones (test code = UA Negative mg/dL Ketones) [facility] AND [id number] 18:46:00 Test Item Value Reference Range Interpretation Comments UA Bili (test code = Negative *NA*(07/22/14 UA Bili) 1:46 PM) [facility] AND [id number] 18:46:00 Test Item Value Reference Range Interpretation Comments UA Bacteria (test code = UA Occasional /HPF Bacteria) [facility] AND [id number] 18:46:00 Test Item Value Reference Range Interpretation Comments UA RBC (test code = no gt See_Comment [Automa elizabeth message] The UA RBC) system which ge nerated this result transmit elizabeth reference range : <=2. The reference range was not used to interpr et this result as margaret l/abnormal. [facility] AND [id number] 18:46:00 Test Item Value Reference Range Interpretation Comments UA WBC (test code = 1 See_Comment [Automa elizabeth message] The UA WBC) system which ge nerated this result transmit elizabeth reference range : <=5. The reference range was not used to interpr et this result as margaret l/abnormal. [facility] AND [id number] 18:46:00 Test Item Value Reference Range Interpretation Comments UA Glucose (test code = UA Glucose) 30 mg/dL [facility] AND [id number] 18:46:00 Test Item Value Reference Range Interpretation Comments UA Protein (test code = UA Negative mg/dL Protein) [facility] AND [id number] 18:46:00 Test Item Value Reference Range Interpretation Comments UA pH (test code = UA pH) 6.5 5.0-8.0 [facility] AND [id number] 18:46:00 Test Item Value Reference Range Interpretation Comments UA Turbidity (test code = Clear (07/22/14 1:46 UA Turbidity) PM) [facility] AND [id number] 18:46:00 Test Item Value Reference Range Interpretation Comments UA Spec Grav (test code = UA Spec Grav) 1.010 [facility] AND [id number] 18:46:00 Test Item Value Reference Range Interpretation Comments UA Color (test code = Light Yellow UA Color) *NA*(07/22/14 1:46 PM) [facility] [id number] 18:46:00 Test Item Value Reference Range Interpretation Comments Magnesium Lvl (test code = Magnesium 1.8 1.8-2.4 Lvl) [facility] HospitalFowfqpqPWGKECBQLFWL8773-61-56 18:46:00 Test Item Value Reference Range Interpretation Comments AGAP (test code = AGAP) 13.2 10.0-20.0 [facility] [id number] 18:46:00 Test Item Value Reference Range Interpretation Comments Magnesium Lvl (test code = Magnesium 1.8 1.8-2.4 Lvl) [facility] HospitalDzhldriMQBWQOWTVVRB6158-09-02 18:46:00 Test Item Value Reference Range Interpretation Comments AGAP (test code = AGAP) 13.2 10.0-20.0 [facility] HospitalDfyteiiYBAEISMIMJSC0163-83-90 18:46:00 Test Item Value Reference Range Interpretation Comments B/C Ratio (test code = B/C Ratio) 18 6-25 [facility] HospitalMutlgxrMVNIEOTKBZFK8313-10-25 18:46:00 Test Item Value Reference Range Interpretation Comments A/G Ratio (test code = A/G Ratio) 1.1 0.7-1.6 [facility] HospitalReoqwpySPEHVRLVNOQE4117-67-14 18:46:00 Test Item Value Reference Range Interpretation Comments Globulin (test code = Globulin) 3.3 2.0-4.0 [facility] HospitalKkrgdnzPIORCXBIFDUA1668-79-85 18:46:00 Test Item Value Reference Range Interpretation Comments eGFR (test code = eGFR) 99 [facility] HospitalFygnjbqUTSYNEJZICUW6966-12-33 18:46:00 Test Item Value Reference Range Interpretation Comments Calcium Lvl (test code = Calcium Lvl) 9.0 8.5-10.5 [facility] HospitalVftpzkpFLKOLCJQBDWX5577-14-60 18:46:00 Test Item Value Reference Range Interpretation Comments Chloride Lvl (test code = Chloride Lvl) 106 95-109 [facility] HospitalDkrnddmSZUMFBZCKNGX3582-49-60 18:46:00 Test Item Value Reference Range Interpretation Comments Creatinine Lvl (test code = Creatinine 0.9 0.5-1.4 Lvl) [facility] HospitalSmjsspbBNWYONIHVMMV1610-99-42 18:46:00 Test Item Value Reference Range Interpretation Comments Potassium Lvl (test code = Potassium 4.2 3.5-5.1 Lvl) [facility]HamgpoaWHWRNYLINYYD2379-93-65 18:46:00 Test Item Value Reference Range Interpretation Comments Sodium Lvl (test code = Sodium Lvl) 139 135-145 [facility] HospitalBpycvdwFSWXIRWPXPRQ0149-73-08 18:46:00 Test Item Value Reference Range Interpretation Comments CO2 (test code = CO2) 24 24-32 [facility] HospitalAddbjvoDSDKSTUMFJCN0508-04-56 18:46:00 Test Item Value Reference Range Interpretation Comments BUN (test code = BUN) 16 7-22 [facility] HospitalRuerfljDKOHVPOTILLY1465-44-38 18:46:00 Test Item Value Reference Range Interpretation Comments Glucose Lvl (test code = Glucose Lvl) 141 70-99 [facility] HospitalVxariivBYTTEVFUYNLC6199-99-54 18:46:00 Test Item Value Reference Range Interpretation Comments Albumin Lvl (test code = Albumin Lvl) 3.6 3.5-5.0 [facility] HospitalHibrgasZLTZFJMILMPQ3013-74-81 18:46:00 Test Item Value Reference Range Interpretation Comments Alk Phos (test code = Alk Phos) 65 39-136 [facility] HospitalRotymmcKPNGCHIWFASX4751-90-87 18:46:00 Test Item Value Reference Range Interpretation Comments Bili Total (test code = Bili Total) 0.3 0.2-1.3 [facility] HospitalZwxlchrAQWZXTDEJRAT1514-19-85 18:46:00 Test Item Value Reference Range Interpretation Comments ALT (test code = ALT) 100 See_Comment [Auto mated message] The system which ge nerated this result transmit elizabeth reference range : <=65. The reference range was not used to interpr et this result as margaret l/abnormal. [facility] HospitalVhgvnhwYVGWVQFZNPKX3534-89-15 18:46:00 Test Item Value Reference Range Interpretation Comments AST (test code = AST) 53 See_Comment [Auto mated message] The system which ge nerated this result transmit elizabeth reference range : <=37. The reference range was not used to interpr et this result as margaret l/abnormal. [facility] HospitalJgfrfjlBKWAAWWKIBJN8433-02-91 18:46:00 Test Item Value Reference Range Interpretation Comments Total Protein (test code = Total 6.9 6.4-8.4 Protein) [facility]XgtjdmySKPOAGLXQO1549-77-90 18:46:00 Test Item Value Reference Range Interpretation Comments Eosinophils (test code = 4.2 See_Comment [A utomated message] The Eosinophils) system which ge nerated this result tra nsmitted reference range : <=4.0. The reference r mitra was not used to int erpret this result as normal/abnormal . [facility]burgOsjqxtkCDHBZXKPAE2445-55-54 18:46:00 Test Item Value Reference Range Interpretation Comments Segs (test code = Segs) 56.4 45.0-75.0 [facility]burgXaxvfijYYSVEWFWNM4262-49-86 18:46:00 Test Item Value Reference Range Interpretation Comments Monocytes (test code = Monocytes) 10.3 2.0-12.0 [facility]burgTvnbspqUONSNTHOUT5407-96-92 18:46:00 Test Item Value Reference Range Interpretation Comments Lymphocytes (test code = Lymphocytes) 28.0 20.0-40.0 [facility]burgUwcqjbbGQPVOEXHKT3802-56-15 18:46:00 Test Item Value Reference Range Interpretation Comments Monocytes # (test code 0.5 See_Comment [Aut omated message] The = Monocytes #) system which generated this result tra nsmitted reference range : <=0.8. The reference r mitra was not used to int erpret this result as normal/abnormal . [facility]burgFgdquynBOAKWYOYSF9591-60-17 18:46:00 Test Item Value Reference Range Interpretation Comments Basophils (test code = 1.1 See_Comment [Aut omated message] The Basophils) system which ge nerated this result tra nsmitted reference range : <=1.0. The reference r mitra was not used to int erpret this result as normal/abnormal . [facility]burgPhhaaovUZRQEIFKHI1695-00-83 18:46:00 Test Item Value Reference Range Interpretation Comments Lymphocytes # (test code = Lymphocytes 1.5 1.0-5.5 #) [facility]burgQwmztwtICVQOSXOQO3009-23-78 18:46:00 Test Item Value Reference Range Interpretation Comments Segs-Bands # (test code = Segs-Bands #) 2.9 1.5-8.1 [facility]burgBvjxfhdXFGEXXMGGG0227-27-78 18:46:00 Test Item Value Reference Range Interpretation Comments Eosinophils # (test code 0.2 See_Comment [A utomated message] The = Eosinophils #) system whic h generated this result tra nsmitted reference range : <=0.5. The reference r mitra was not used to int erpret this result as normal/abnormal . [facility]burgPzcwopcDGHIGDVBYF2298-05-02 18:46:00 Test Item Value Reference Range Interpretation Comments Basophils # (test code 0.1 See_Comment [Aut omated message] The = Basophils #) system which generated this result tra nsmitted reference range : <=0.2. The reference r mitra was not used to int erpret this result as normal/abnormal . [facility]burgRobamvsTVAOLYUATX9727-99-33 18:46:00 Test Item Value Reference Range Interpretation Comments PT (test code = PT) 11.2 s 12.0-14.7 [facility]burgIsmmiclTXTTXXVMTE0832-24-96 18:46:00 Test Item Value Reference Range Interpretation Comments INR (test code = INR) 0.82 0.85-1.17 [facility]burgWapypmwUNVGKKQVKC9185-73-89 18:46:00 Test Item Value Reference Range Interpretation Comments PTT (test code = PTT) 28.6 s 22.9-35.8 [facility]burgAwhpactZHSBMHYNNW9301-61-60 18:46:00 Test Item Value Reference Range Interpretation Comments MPV (test code = MPV) 8.1 7.4-10.4 [facility]burgIiyaeslRWSFHFYTDD7446-53-24 18:46:00 Test Item Value Reference Range Interpretation Comments Platelet (test code = Platelet) 301 133-450 [facility]burgJwrcafkEXQNBSYXLZ4866-05-12 18:46:00 Test Item Value Reference Range Interpretation Comments RDW (test code = RDW) 14.5 11.5-14.5 [facility]burgXcnaqbbCZJLAVOLVT8595-77-73 18:46:00 Test Item Value Reference Range Interpretation Comments RBC (test code = RBC) 4.84 4.70-6.10 [facility]btCWFKTXRJPO2988-08-64 18:46:00 Test Item Value Reference Range Interpretation Comments Hgb (test code = Hgb) 14.4 14.0-18.0 [facility]ehadoyUSROEUCOEJ6557-06-20 18:46:00 Test Item Value Reference Range Interpretation Comments WBC (test code = WBC) 5.2 3.7-10.4 [facility]nubhbsKIKUMDYCLG1800-69-62 18:46:00 Test Item Value Reference Range Interpretation Comments MCH (test code = MCH) 29.8 pg 27.0-31.0 [facility]KrgrkxvJUXKTVMVQL3693-28-62 18:46:00 Test Item Value Reference Range Interpretation Comments MCV (test code = MCV) 92.0 80.0-94.0 [facility]RsrymcjWNKVNCLGZA5514-64-93 18:46:00 Test Item Value Reference Range Interpretation Comments Hct (test code = Hct) 44.5 42.0-54.0 [facility] HospitalEupkalyABXWJNOBOV9695-04-49 18:46:00 Test Item Value Reference Range Interpretation Comments MCHC (test code = MCHC) 32.4 32.0-36.0 [facility]RpbfmynUCAMQQGKBI8495-42-40 18:46:00 Test Item Value Reference Range Interpretation Comments Elroy-Hep C Ab (test Negative *NA*(07/22/14 code = Elroy-Hep C 1:46 PM) Ab) [facility] AND [id number] 18:46:00 Test Item Value Reference Range Interpretation Comments UA Urobilinogen (test code = UA <=1.0 mg/dL 0.1-1.0 Urobilinogen) [facility] AND [id number] 18:46:00 Test Item Value Reference Range Interpretation Comments UA Sq Epi (test code = UA Sq Epi) None Seen [facility] AND [id number] 18:46:00 Test Item Value Reference Range Interpretation Comments UA Leuk Est (test Negative (07/22/14 1:46 code = UA Leuk Est) PM) [facility] AND [id number] 18:46:00 Test Item Value Reference Range Interpretation Comments UA Nitrite (test code Negative (07/22/14 1:46 = UA Nitrite) PM) [facility] AND [id number] 18:46:00 Test Item Value Reference Range Interpretation Comments UA Blood (test code = Negative (07/22/14 1:46 UA Blood) PM) [facility] AND [id number] 18:46:00 Test Item Value Reference Range Interpretation Comments UA Ketones (test code = UA Negative mg/dL Ketones) [facility] AND [id number] 18:46:00 Test Item Value Reference Range Interpretation Comments UA Bili (test code = Negative *NA*(07/22/14 UA Bili) 1:46 PM) [facility] AND [id number] 18:46:00 Test Item Value Reference Range Interpretation Comments UA Bacteria (test code = UA Occasional /HPF Bacteria) [facility] AND [id number] 18:46:00 Test Item Value Reference Range Interpretation Comments UA RBC (test code = no gt See_Comment [Automa elizabeth message] The UA RBC) system which ge nerated this result transmit elizabeth reference range : <=2. The reference range was not used to interpr et this result as margaret l/abnormal. [facility] AND [id number] 18:46:00 Test Item Value Reference Range Interpretation Comments UA WBC (test code = 1 See_Comment [Automa elizabeth message] The UA WBC) system which ge nerated this result transmit elizabeth reference range : <=5. The reference range was not used to interpr et this result as margaret l/abnormal. [facility] AND [id number] 18:46:00 Test Item Value Reference Range Interpretation Comments UA Glucose (test code = UA Glucose) 30 mg/dL [facility] AND [id number] 18:46:00 Test Item Value Reference Range Interpretation Comments UA Protein (test code = UA Negative mg/dL Protein) [facility] AND [id number] 18:46:00 Test Item Value Reference Range Interpretation Comments UA pH (test code = UA pH) 6.5 5.0-8.0 [facility] AND [id number] 18:46:00 Test Item Value Reference Range Interpretation Comments UA Turbidity (test code = Clear (07/22/14 1:46 UA Turbidity) PM) [facility] AND [id number] 18:46:00 Test Item Value Reference Range Interpretation Comments UA Spec Grav (test code = UA Spec Grav) 1.010 [facility] AND [id number] 18:46:00 Test Item Value Reference Range Interpretation Comments UA Color (test code = Light Yellow UA Color) *NA*(07/22/14 1:46 PM) [facility] HospitalSsncwarZNQUTVTEHOPJ5275-80-41 18:46:00 Test Item Value Reference Range Interpretation Comments B/C Ratio (test code = B/C Ratio) 18 6- [facility] HospitalYhyvvmzEQBEGJESHPPJ1688-94-90 18:46:00 Test Item Value Reference Range Interpretation Comments A/G Ratio (test code = A/G Ratio) 1.1 0.7-1.6 [facility] HospitalPjiwpwuNPGNLMACTMRN8759-29-11 18:46:00 Test Item Value Reference Range Interpretation Comments Globulin (test code = Globulin) 3.3 2.0-4.0 [facility] HospitalMxkrtxoPNRRHCQYMCKL0799-16-06 18:46:00 Test Item Value Reference Range Interpretation Comments eGFR (test code = eGFR) 99 [facility] HospitalGqdqrvjEVLQLTTCPZUS3944-97-09 18:46:00 Test Item Value Reference Range Interpretation Comments Calcium Lvl (test code = Calcium Lvl) 9.0 8.5-10.5 [facility] HospitalUsnmtezGWMVTIYGYTJL3926-34-03 18:46:00 Test Item Value Reference Range Interpretation Comments Chloride Lvl (test code = Chloride Lvl) 106 95-109 [facility] HospitalCehtzmnIPAUVTJDHJCG2687-86-82 18:46:00 Test Item Value Reference Range Interpretation Comments Creatinine Lvl (test code =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
--- NOTE | 2022-07-19 14:41 | ER ---
Nurse's Notes [facility] Name: Kevin Kaye Age: 61 yrs Sex: Male : 1960 Arrival Date: 07/19/2022 Time: 13:51 Bed Waiting Private MD: Jimbo Cohn Diagnosis: ED Course: 07/19 13:53 Patient arrived in ED. mr 13:53 Jimbo Cohn MD is Private Physician. mr 14:32 Isaias Fuentes MD is Attending Physician. sharon Administered Medications: No medications were administered Outcome: 14:40 Patient left the ED. aa5 Signatures: Isaias Fuentes MD MD cha Rivera Sunita Lesli Khalil RN RN aa5
== END 2022-07-19 14:40 | disposition left against medical advice (07) ==
LOC: ER 13:51
DX: Z02.9 Encounter for administrative examinations, unspecified (principal)

== ENCOUNTER 2022-07-19 16:07 | Emergency (ER) | payer OTHER ==
--- OUTSIDE RECORDS SUMMARY | 2022-07-19 16:38 | XMS REPORT | Continuity of Care Document ---
:1960 Author Organization [facility] t Address [address] [facility] [place] [address] Care Team Providers Name Role Phone SHEY VAN Primary Care Physician Unavailable [id number] Attending Clinician Unavailable IZABELA PHAM Attending Clinician [...] Attending Clinician Kaden CARTER, Sunny Attending Clinician [phone] Fabienne CARTER, Olga Attending Clinician Kendra CARTER, Laureen Attending Clinician LAUREEN MOORE Attending Clinician Unavailable Doctor Unassigned, [facility] Attending Clinician Unavailable ALLAN LYNCH Attending Clinician [...] Unavailable DAWSON CHOUDHURY Attending Clinician Unavailable , [facility] Sleep Lab Bed Attending Clinician Unavailable Susan Manjarrez PA-C Attending Clinician SUSAN MANJARREZ Attending Clinician Unavailable DELROY FARAH Attending Clinician Unavailable Delroy Farah MD Attending Clinician [facility] Attending Clinician Unavailable Erma Morales RN Attending Clinician Unavailable MAGDALENE MALDONADO Attending Clinician Unavailable Joel ELECTRIC MOTOR MECHANIC, Magdalene Attending Clinician Sejal ELECTRIC MOTOR MECHANIC, Fadisuma Attending Clinician CARLOS CORBIN Attending Clinician Unavailable Ladonna Bryant DO Attending Clinician MICHAEL SARGENT S Attending Clinician Unavailable Michael Fulton S Attending Clinician CLEVE_ Attending Clinician Unavailable BENITO LOPEZ Attending Clinician Unavailable Edgard Leo DO Attending Clinician Magali Curtis MD Attending Clinician Ted Lion MD Attending Clinician Allen Maravilla MD Attending Clinician Perla CARTER, Georgina Key Attending Clinician [phone] SIENNA POLK Attending Clinician Unavailable LADI RIBERA Attending Clinician Unavailable YASMINE BROOKE Attending Clinician Unavailable MD YASMINE BROOKE Attending Clinician Unavailable Pato Hill MD Attending Clinician Surgery, [facility] General Attending Clinician Unavailable Sofia Malone MD Attending Clinician Surgery, [facility] Attending Clinician Unavailable Ramana Padron MD Attending Clinician RAMANA SHEA M.D., RAMANA Acevedo M.D. Attending Clinician Unavailable Christy Moya Attending Clinician [id number] Admitting Clinician Unavailable IZABELA PHAM Admitting Clinician [...] Clinician Perla CARTER, Georgina Key Admitting Clinician [phone] YASMINE BROOKE Admitting Clinician Unavailable MD YASMINE BROOKE Admitting Clinician Unavailable Pato Hill MD Admitting Clinician RAMANA SHEA M.D., RAMANA Acevedo Admitting Clinician Tasha ivey Payers Payer Name Policy Type Policy Number Effective Date Expiration Date S emmanuel [facility] [id number] [place] [id number] 2021 CLASSIC NO PREMIUM 00:00:00 HMO MEDICARE PART A [id number] 2003 00:00:00 [facility] [id number] [facility] 00:00:00 WELLCARE MAPS [id number] 2022 00:00:00 WELLCARE VALUE [id number] 2020 00:00:00 Problems Condition Condition Condition Status Onset Resolution Last Treating Co mments Source Name Details Category Date Date Treatment Clinician Date Cellulitis Cellulitis Disease Active U nivers of right of right 5-29 ity of lower lower 00:00: [place] extremity extremity 00 [facility] Acute Acute Disease Active [facility] metabolic metabolic 5-14 [facility] s encephalop encephalop 00:00: Ms dical athy athy 00 Center Toxic Toxic Disease Active [facility] encephalop encephalop 5-14 Alison kes athy athy 00:00: Medical 00 Center Hydronephr Hydronephr Disease Active [facility] osis osis 5-09 [facility] 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 4-14 ity of 00:00: [address] Branch DVT (deep DVT (deep Disease Active Uni vers venous venous 4-14 [place] of [place] 00 [facility] Branch Bilateral Bilateral Disease Active Uni vers sciatica sciatica 4-13 ity of 00:00: [place] 00 Medical Branch Obesity Obesity Disease Active Univers (BMI (BMI 4-13 ity of 30-39.9) 30-39.9) 00:00: [place] [address] Medical Branch Deep vein Deep vein Disease [...] chronicity chronicity ally from request for surgery [id number] Lipoma of Lipoma of Disease Active Overview: Univers right right 4-12 Formattin ity of lower lower 00:00: g of this [place] extremity extremity 00 note Medi gordon might be Branch different from the original. Added automatic ally from request for surgery [id number] Lipoma of Lipoma of Disease Active Uni vers torso torso 4-06 ity of 00:00: [place] [address] Medical Branch Kamryn Kamryn Disease Active Univers 6-24 ity of 00:00: [place] [address] Medical Branch Rhabdomyol Rhabdomyol Disease Active U nivers ysis ysis 6-21 ity of 00:00: [place] [address] Medical Branch Presence Presence Disease Active Metho di of IVC of IVC [facility] [facility] filter filter 00:00: Hospita 00 l Acute Acute Disease Active Methodi chest pain chest pain 9-15 st 00:00: Hospita 00 l Behavior Behavior Disease Active Unive rs problem problem 6-13 ity of 00:00: [place] [address] Medical Branch Cellulitis Cellulitis Disease Active U nivers and and 613 ity of abscess of abscess [place] foot 00 Medical [place] Alteration Alteration Disease Active U nivers consciousn consciousn 6-13 it y of ess ess 00:00: [place] [address] Medical Branch TESTING TESTING Diagnosis Active 2014-07-28 Memoria FOR DVT FOR DVT 07-22 14:06:00 l Active 00:00: [place] 07/22/2014 00 [facility] 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 2-16 it[place] of disorder, [place], [place] chronic 00 Medical condition condition Bran ch with acute with acute exacerbati exacerbati on on Hypertensi Hypertens Problem Active 2014-07-25 Memoria ve raisa 07:19:48 l disorder, disorder, Herm britt systemic systemic arterial arterial (disorder) (disorder) Active Problem 07/25/2014 [facility] History of Past Illness Condition Condition Condition Status Onset Resolution Last Treating Co mments Source Name Details Category Date Date Treatment Clinician Date Discharge Discharge Problem 2014-2014-07-25 2014-07-25 Memoria Diagnosis: Diagnosis: 07-22 07:19:48 07:19:48 l Chronic Chronic 05:00: [place] back pain back pain 00 07/22/2014 07/25/2014 [facility] Discharge Discharge Problem 2014-07-25 2014-07-25 Memoria Diagnosis: Diagnosis: 07-22 07:19:48 07:19:48 l Peripheral Peripheral 05:00: [place] edema edema 00 07/22/2014 5 [facility] Allergies, Adverse Reactions, Alerts Allergy Allergy Status [...] DA Active U Rash 2019-02 SJm ins 2-21 00:00: 00 No Known DA [...] Penicill Active Memori a in in l [place] Family History Family Member Diagnosis Comments Start Date Stop Date Source Natural father [facility] mother Diabetes [facility] Social History Social Habit Start Date Stop Date Quantity Comments Source Gender identity [facility] Sexual orientation [facility] History SDOH University o f Alcohol Std Drinks [place] [facility] History SDOH University o f Alcohol Binge [place] [facility] al Branch History SDOH Social Unive rsity of Connections [facility] Med ical Together Branch History SDOH Social Unive rsity of Connections [facility] Medical Branch History SDOH Social Unive rsity of Connections [place] [facility] Membership Branch History SDOH Social Unive rsity of Connections [place] [facility] Meetings Branch Exposure to 2022-07-01 2022-07-11 [...] Unive rsity of Connections Living 00:00:00 00:00:00 [place] [facility] History SDOH 2022-05-27 2022-05-27 0 University o f Physical Activity 00:00:00 00:00:00 [place] M edical DPW Branch History SDOH 2022-05-27 2022-05-27 0 University o f Physical Activity 00:00:00 00:00:00 [place] M edical MPS Branch History SDOH 2022-05-27 2022-05-27 5 University o f Financial 00:00:00 00:00:00 [place] [facility] History SDOH Food 2022-05-27 2022-05-27 1 Univers ity of Worry 00:00:00 00:00:00 [place] [facility] History SDOH Food 2022-05-27 2022-05-27 1 Univers ity of Scarcity 00:00:00 00:00:00 [place] [facility] History SDOH 2022-05-27 2022-05-27 2 University o f Transport Med 00:00:00 00:00:00 [place] Medic al Branch History SDOK 2022-05-27 2022-05-27 2 University o f Transport Non-Med 00:00:00 00:00:00 [place] M edical Branch History SDOH 2022-05-27 2022-05-27 2 University o f Housing Unable to 00:00:00 00:00:00 [place] M edical Pay Branch History [facility] 2022-05-27 2022-05-27 1 University o f Housing Places 00:00:00 00:00:00 [place] Medi gordon Lived Branch History [facility] 2022-05-27 2022-05-27 2 University o f Housing Homeless 00:00:00 00:00:00 [facility] [place] [facility] dical Last Year Branch Education 2022-05-26 2022-05-26 21 University of 00:00:00 00:00:00 [facility] [place] [facility] Tobacco use and 2022-05-03 2022-05-03 User of Universit y of exposure 00:00:00 00:00:00 smokeless [facility]ly [facility] Tobacco Comment 2021-09-22 2021-09-22 dipper Universit y of 00:00:00 00:00:00 [facility] [place] [facility] History of Social 2019-10-31 2019-10-[address] function 00:00:00 00:00:00 Hospital Alcohol intake 2019-10-29 2019-10-29 Lifetime Yarsani 00:00:00 00:00:00 non-drinker Hospital (finding) History of tobacco 2014-08-25 Snuff User Univer sity of use 00:00:00 [facility] [place] [facility] Sex Ass[birth year] At [birth year] Yarsani 00:00:00 00:00:00 Hospital Smoking Status Start Date Stop Date Source Social History [facility] Medications Ordered Filled Start Stop Current Ordering Indication Dosage Frequency Signature Comments Components Source Medication Medication Date Date Medication? Clinician (SIG) Name Name clindamycin 2022- No 900mg 900 mg, IV Univers in 5 % 07-11 Piggyback, ity of dextrose 10:45: 11:47 ONCE, 1 [place] (CLEOCIN) 00 :00 dose, On Medica l 900 mg/50 Mon [place] mL IV 07/11/22 at piggyback 0545, RTU 900 mg Administer over 30 Minutes, 50 mL
R chelsea for Anti-Infec tive: Empiric Therapy for Suspected Infection< br>Empiric Therapy Site: Skin / Soft tissue
Duration of therapy: 5 days
Re stricted use approved by: ED PROVIDER cefTRIAXone 2022- No 1000mg 1,000 mg, Univers (ROCEPHIN) 07-05 IV ity of 1,000 mg in 14:15: 14:53 [place], [place] NaCl 0.9% 00 :00 ONCE, 1 Medical (NS) 100 mL dose, On Bran ch MINI-BAG [facility] 07/05/22 at 0915, Administer over 30 Minutes, [...] 07/05/22 at 0715, Routine OLANZapine 2022-0 Yes [id number] 5mg Take 1 Univers 5 mg tablet 5-23 tablet by ity of 00:00: mouth in [place] 00 the Medical morning. [place] OLANZapine 2022-0 Yes [id number] 5mg Take 1 Univers 5 mg tablet 5-23 tablet by ity of 00:00: mouth in [place] 00 the Medical morning. [place] OLANZapine 2022-0 Yes [id number] 5mg Take 1 Univers 5 mg tablet 5-23 tablet by ity of 00:00: mouth in [place] 00 the Medical morning. [place] OLANZapine 2022-0 Yes [id number] 5mg Take 1 Univers 5 mg tablet 5-23 tablet by ity of 00:00: mouth in [place] 00 the Medical morning. [place] OLANZapine 3-0 Yes [id number] 5mg Take 1 Univers 5 mg tablet 5-23 tablet by ity of 00:00: mouth in [place] 00 the Medical morning. Branch OLANZapine 2022-0 Yes [id number] 5mg Take 1 Univers 5 mg tablet 5-23 tablet by ity of 00:00: mouth in [place] 00 the Medical morning. Branch OLANZapine 2022-0 Yes [id number] 5mg Take 1 Univers 5 mg tablet 5-23 tablet by ity of 00:00: mouth in [place] 00 the Medical morning. Branch furosemide 2022-0 2022- Yes [id number] 40mg Take 1 Univers 40 mg 5-23 06-07 tablet by ity of tablet 00:00: 04:59 mouth [place] 00 :00 every Medical morning Branch and evening for 14 days. furosemide 2022-0 2022- Yes [id number] 40mg Take 1 Univers 40 mg 5-23 06-07 tablet by ity of tablet 00:00: 04:59 mouth [place] 00 :00 every Medical morning Branch and evening for 14 days. furosemide 2022-0 2022- Yes [id number] 40mg Take 1 Univers 40 mg 5-23 06-07 tablet by ity of tablet 00:00: 04:59 mouth [place] 00 :00 every Medical morning Branch and evening for 14 days. furosemide 2022-0 2022- Yes [id number] 40mg Take 1 Univers 40 mg 5-23 06-07 tablet by ity of tablet 00:00: 04:59 mouth [place] 00 :00 every Medical morning Branch and evening for 14 days. furosemide 2022-0 2022- Yes [id number] 40mg Take 1 Univers 40 mg 5-23 06-07 tablet by ity of tablet 00:00: 04:59 mouth [place] 00 :00 every Medical morning Branch and evening for 14 days. furosemide 2022-0 2022- Yes [id number] 40mg Take 1 Univers 40 mg 5-23 06-07 tablet by ity of tablet 00:00: 04:59 mouth [place] 00 :00 every Medical morning Branch and evening for 14 days. furosemide 2022-0 2022- Yes [id number] 40mg Take 1 Univers 40 mg 5-23 06-07 tablet by ity of tablet 00:00: 04:59 mouth [place] 00 :00 every Medical morning Branch and evening for 14 days. cephALEXin 2022-0 2022- Yes [id number] 1000mg Take 2 Univers 500 mg 07-05 [id number] capsules ity of capsule 00:00: 04:59 by mouth [place] 00 :00 in the [facility] morning Branch and 2 capsules in the evening. Do all this for 7 days. cephALEXin 2022-2022- Yes [id number] 1000mg Take 2 Univers 500 mg 07-05 [id number] capsules ity of capsule 00:00: 04:59 by mouth [place] 00 :00 in the [facility] and 2 capsules in the evening. Do all this for 7 days. cephALEXin 2022-0 2022- Yes [id number] 1000mg Take 2 Univers 500 mg 07-05 [id number] capsules ity of capsule 00:00: 04:59 by mouth [place] 00 :00 in the [facility] and 2 capsules in the evening. Do all this for 7 days. cephALEXin 2022-2022- Yes [id number] 1000mg Take 2 Univers 500 mg 07-05 [id number] capsules ity of capsule 00:00: 04:59 by mouth [place] 00 :00 in the [facility] and 2 capsules in the evening. Do all this for 7 days. cephALEXin 2022-2022- Yes [id number] 1000mg Take 2 Univers 500 mg 07-05 [id number] capsules ity of capsule 00:00: 04:59 by mouth [place] 00 :00 in the [facility] and 2 capsules in the evening. Do all this for 7 days. apixaban 2022-0 Yes [id number] 5mg Take 1 Unive rs mg tablet 5-22 tablet by ity o f 00:00: mouth in [address] and 1 tablet in the evening. Indication s: history of deep vein thrombosis apixaban 5 2022-0 Yes [id number] 5mg Take 1 Unive rs mg tablet 5-22 tablet by ity o f 00:00: mouth in [address] and 1 tablet in the evening. Indication s: history of deep vein thrombosis apixaban 5 2022-0 Yes [id number] 5mg Take 1 Unive rs mg tablet 5-22 tablet by ity o f 00:00: mouth in [address] and 1 tablet in the evening. Indication s: history of deep vein thrombosis apixaban 5 2022-0 Yes [id number] 5mg Take 1 Unive rs mg tablet 5-22 tablet by ity o f 00:00: mouth in [place] 00 the Medical morning Branch and 1 tablet in the evening. Indication s: history of deep vein thrombosis apixaban 5 2022-0 Yes [id number] 5mg Take 1 Unive rs mg tablet 5-22 tablet by ity o f 00:00: mouth in [place] 00 the Medical morning Branch and 1 tablet in the evening. Indication s: history of deep vein thrombosis apixaban 5 2022-0 Yes 5523 5mg Take 1 Unive rs mg tablet 5-22 tablet by ity o f 00:00: mouth in [place] 00 the Medical morning Branch and 1 tablet in the evening. Indication s: history of deep vein thrombosis apixaban 5 2022-0 Yes 5523 5mg Take 1 Unive rs mg tablet 5-22 tablet by ity o f 00:00: mouth in [place] [address] the Medical morning Branch and 1 tablet in the evening. Indication s: history of deep vein thrombosis apixaban 5 2022-0 Yes 5523 5mg Take 1 Unive rs mg tablet 5-22 tablet by ity o f 00:00: mouth in [place] [address] the Medical morning Branch and 1 tablet in the evening. Indication s: history of deep vein thrombosis apixaban 5 2022-0 Yes 5523 5mg Take 1 Unive rs mg tablet 5-22 tablet by ity o f 00:00: mouth in [place] [address] the Medical morning Branch and 1 tablet in the evening. Indication s: history of deep vein thrombosis apixaban 5 2022-0 Yes 5523 5mg Take 1 Unive rs mg tablet 5-22 tablet by ity o f 00:00: mouth in [place] [address] the [facility] morning Branch and 1 tablet in the [...] mouth Center nightly. gabapentin 2023-0 Yes 300mg Q.[id number] Take [address] (NEURONTIN) 5-11 [id number] capsule [facility] 300 MG 18:24: 3D (300 [...] mouth Center nightly. gabapentin 2023-0 Yes 300mg Q.[id number] Take [address] (NEURONTIN) 5-11 [id number] capsule [facility] 300 MG 18:24: 3D (300 [...] s mg tablet 06-13 ity of 00:00: [place] [facility] traMADoL 50 2022-0 Yes Univer s mg tablet 06-13 ity of 00:00: [place] [facility] traMADoL 50 2022-0 Yes Univer s mg tablet 06-13 ity of 00:00: [place] [facility] tc 2022-0 2022- No [id number] 25mCi 25 Univer s 99m-medrona 06-07 04-25 millicurie i ty of te 13:50: 13:50 , [place] (DRAXIMAGE 00 :00 Intravenou Med ical MDP-25) s, ONCE, 1 Branch injection dose, On Mon [place] 06/07/22 at 0900, Routine apixaban 2022- Yes [id number] 5mg Take 1 Univ ers mg tablet 06-07-26 tablet by ity of 00:00: 04:59 mouth in [place] 00 :00 the [facility] Branch and 1 tablet in the evening. Do all this for 30 days. Indication s: history of deep vein thrombosis apixaban 5 2022- Yes 5523 5mg Take 1 Univ ers mg tablet 06-07-26 tablet by ity of 00:00: 04:59 mouth in [place] 00 :00 the [facility] morning Branch and 1 tablet in the evening. Do all this for 30 days. Indication s: history of deep vein thrombosis apixaban 2022- Yes 5523 5mg Take 1 Univ ers mg tablet - 05-26 tablet by ity of 00:00: 04:59 mouth in [place] 00 :00 the [facility] morning Branch and 1 tablet in the evening. Do all this for 30 days. Indication s: history of deep vein thrombosis apixaban 5 2022- Yes 5523 5mg Take 1 Univ ers mg tablet -25 05-26 tablet by ity of 00:00: 04:59 [...] by ity of 00:00: 04:59 mouth in [place] 00 :00 the Medical morning Branch and 1 tablet in the evening. Do all this for 30 days. Indication s: history of deep vein thrombosis apixaban 5 2022-2022- No 5523 5mg Take 1 Univ ers mg tablet -07 07-22 tablet by ity of 00:00: 00:00 mouth in [place] 00 :00 the Medical morning Branch and 1 tablet in the evening. Do all this for 30 days. Indication s: history of deep vein thrombosis apixaban 5 2022-2022- No 5523 5mg Take 1 Univ ers mg tablet -07 07-22 tablet by ity of 00:00: 00:00 mouth in [place] 00 :00 the Medical morning Branch and 1 tablet in the evening. Do all this for 30 days. Indication s: history of deep vein thrombosis acetaminoph 2022- Yes [id number] 500mg Take 1 Univers en 500 mg 4-25 05-06 tablet by ity of tablet 00:00: 04:59 mouth [place] 00 :00 every 6 Medical (six) Branch hours as needed for Pain for up to 10 days. acetaminoph 2022- Yes [id number] 500mg Take 1 Univers en 500 mg 4-25 05-06 tablet by ity of tablet 00:00: 04:59 mouth [place] 00 :00 every 6 Medical (six) Branch hours as needed for Pain for up to 10 days. acetaminoph 2022- Yes [id number] 500mg Take 1 Univers en 500 mg 4-25 05-06 tablet by ity of tablet 00:00: 04:59 mouth [place] 00 :00 every 6 Medical (six) Branch hours as needed for Pain for up to 10 days. acetaminoph 2022- Yes [id number] 500mg Take 1 Univers en 500 mg 4-25 05-06 tablet by ity of tablet 00:00: 04:59 mouth [place] 00 :00 every 6 Medical (six) Branch hours as needed for Pain for up to 10 days. acetaminoph 2022- Yes [id number] 500mg Take 1 Univers en 500 mg 4-25 05-06 tablet by ity of tablet 00:00: 04:59 mouth [place] 00 :00 every 6 Medical (six) Branch hours as needed for Pain for up to 10 days. acetaminoph 2022- Yes [id number] 500mg Take 1 Univers en 500 mg 4-25 05-06 tablet by ity of tablet 00:00: 04:59 mouth [place] 00 :00 every 6 Medical (six) Branch hours as needed for Pain for up to 10 days. acetaminoph 2022- Yes [id number] 500mg Take 1 Univers en 500 mg 4-25 05-06 tablet by ity of tablet 00:00: 04:59 mouth [place] 00 :00 every 6 Medical (six) Branch hours as needed for Pain for up to 10 days. docusate 2022- Yes [id number] 100mg Take 1 Univers 100 mg 4-25 [...] Indication s: acute pain polyethylen 2022- Yes [id number] 17g Take 1 Univers e glycol 4-25 05-03 Packet by ity o f 3350 17 00:00: 04:59 mouth [place] gram powder 00 :00 every 24 Medi gordon (twenty-fo Branch ur) hours as needed for Constipati on for up to 7 days. docusate 0 2022- Yes [id number] 100mg Take 1 Univers 100 mg 4-25 [...] Indication s: acute pain polyethylen 2022- Yes [id number] 17g Take 1 Univers e glycol 4-25 05-03 Packet by ity o f 3350 17 00:00: 04:59 mouth [place] gram powder 00 :00 every 24 Medi gordon ([facility] ur) hours as needed for Constipati on for up to 7 days. docusate 2022- Yes [id number] 100mg Take 1 Univers 100 mg 4-25 05-03 capsule by ity of capsule 00:00: 04:59 mouth in [place] 00 :00 the [facility] morning Branch for 7 days. HYDROcodone 2022- Yes [id number] 1{tbl} Take 1 U nivers -acetaminop 4-25 05-03 tablet by it y of hen 10-325 00:00: 04:59 mouth [place] mg tablet 00 :00 every 6 Medical (six) Branch hours as needed for Pain (scale 7-10) or Pain (scale 4-6) for up to 7 days. Indication s: acute pain polyethylen 2022-0 2022- Yes [id number] 17g Take 1 Univers e glycol 4-25 05-03 Packet by ity o f 3350 17 00:00: 04:59 mouth [place] gram powder 00 :00 every 24 Medi gordon (twenty-fo Branch ur) hours as needed for Constipati on for up to 7 days. docusate 2022-0 2022- Yes [id number] 100mg Take 1 Univers 100 mg 4-25 [...] Indication s: acute pain polyethylen 2022- Yes [id number] 17g Take 1 Univers e glycol 06-07 Packet by ity o f 3350 17 00:00: 04:59 mouth [place] gram powder 00 :00 every 24 Medi gordon (twenty-fo Branch ur) hours as needed for Constipati on for up to 7 days. benzocaine- Yes 1{lozen 1 Lozenge, Univers menthoL 4-23 ge} Oral, ity of (CEPACOL 05:03: Q4HPRN, [place] SORE THROAT 14 Starting Medi gordon (CLAUDIA-MEN)) [facility] at Lozenge 0003, Until Discontinu ed, Routine, Sore throat benzocaine- 0 Yes 1{lozen 1 Lozenge, Univers menthoL 4-23 ge} Oral, ity of (CEPACOL 05:03: Q4HPRN, [place] SORE THROAT 14 Starting Medi gordon (CLAUDIA-MEN)) on [place] [id number] 06/05/22 at Lozenge 0003, Until Discontinu ed, Routine, Sore throat iopamidol 2022- No [id number] 80mL 80 mL, Univers (ISOVUE 06-05 Intravenou ity o f 370-500 mL) 01:36: 01:20 s, ONCE, 1 [place] injection 00 :00 dose, On Medica l 80 mL [facility] 06/04/22 at 2044, Routine apixaban 2022- Yes 10mg [Order 1 Univ ers (ELIQUIS) 06-05 Start] ity of tablet 10 01:00: 00:59 Name: [place] mg 00 :00 apixaban Medical (ELIQUIS) Branch tablet 10 mg Signed Summary: 10 mg, Oral, BID, 14 doses, First dose on [facility] 06/04/22 at 1999, Last dose on [facility] 06/11/22 at 0800, Routine
Indicatio ns: DVT/PE [Order 1 End] [Order 2 Start] Name: apixaban (ELIQUIS) tablet 5 mg Signed Summary: 5 mg, Oral, BID, First dose on [facility] 06/11/22 at 1999, Until Discontinu ed, Routine
Indicatio ns: DVT/PE [Order 2 End] apixaban 2022- Yes 10mg [Order 1 Univ ers (ELIQUIS) 06-05 Start] ity of tablet 10 01:00: 00:59 Name: [place] mg 00 :00 apixaban Medical (ELIQUIS) [place] tablet 10 mg Signed Summary: 10 mg, Oral, BID, 14 doses, First dose on [facility] 06/04/22 at 1999, Last dose on [facility] 06/11/22 at 0800, Routine
Indicatio ns: DVT/PE [Order 1 End] [Order 2 Start] Name: apixaban (ELIQUIS) tablet 5 mg Signed Summary: 5 mg, Oral, BID, First dose on [facility] 06/11/22 at 1999, Until Discontinu ed, Routine
Indicatio ns: DVT/PE [Order 2 End] bisacodyL Yes 10mg 10 mg, Univer s (DULCOLAX) 06-04 Rectal, ity of suppository 15:25: QDAILYPRN, [place] 10 mg 51 Starting Medical on [facility] 06/04/22 at 1025, Until Discontinu ed, Routine, Constipati on bisacodyL Yes 10mg 10 mg, Univer s (DULCOLAX) 06-04 Rectal, ity of suppository 15:25: QDAILYPRN, [place] 10 mg 51 Starting Medical on [facility] 06/04/22 at 1025, Until Discontinu ed, [...] 1000 mL for 00 :55 06/03/22 at Ms dical vascular 0925, Branch Intra-op heparin 0 [...] INITIAL INFUSION RATE.&nbsp ; _ &nb sp;[facility] ONLY &nbs p; - aPTT < 35: [...] Oral, ity of OIL EXTRA 14:00: DAILY, [place] HEAVY) oral 00 First dose Me dical liquid 30 on [place] Branch mL 06/02/22 at 0900, Until Discontinu ed, Routine mineral oil Yes 30mL 30 mL, Univ ers (MINERAL 4-20 Oral, ity of OIL EXTRA 14:00: DAILY, [place] HEAVY) oral 00 First dose Me dical [...] s mg 00 First dose Medical on [facility] 05/31/22 at 0900, Until Discontinu ed, Routine docusate 2022-0 Yes 100mg 100 mg, Unive rs (COLACE) 4-18 Oral, it[place] of capsule 100 14:00: [place] 00 First dose Medical on [facility] 05/31/22 at 0900, Until Discontinu ed, Routine docusate 2022-0 Yes 100mg 100 mg, Unive rs (COLACE) 4-18 Oral, ity of capsule 100 14:00: DAILY, [place] 00 First dose Medical on [facility] 05/31/22 at 0900, Until Discontinu ed, Routine docusate 2022-0 Yes 100mg 100 mg, Unive rs (COLACE) 4-18 Oral, ity of capsule 100 14:00: DAILY, [place] 00 First dose Medical on [facility] 05/31/22 at 0900, Until Discontinu ed, [...] INITIAL INFUSION RATE.&nbsp ; _ &nb sp;FOR [facility], AND [facility] ONLY &nbs p; - aPTT [...] ) injection 02:47: on Mon05/30/[address] Until Discontinu ed, Routine, Intra-op iopamidol 2022-0 Yes PRN, Univers (ISOVUE-300 4-18 Starting ity of ) injection 02:47: on Mon05/30/[address] Until Discontinu ed, Routine, Intra-op iopamidol 2022-0 Yes PRN, Univers (ISOVUE-300 4-18 Starting ity of ) injection 02:47: on Mon05/30/[address] Until Discontinu ed, Routine, Intra-op heparin 2022-0 Yes PRN, Univers 10,000 4-18 Starting ity of units in [place] 01:26: on [place] 1000 [place] for 00 05/30/22 at Me dical vascular 2025, Branch [...] [place] 20 mEq 00 :00 dose, On [facility] Mon05/30/22 at 0615, Routine heparin 2022-0 2022- [...] INITIAL INFUSION RATE.&nbsp ; _ &nb sp;[facility], AND [facility] ONLY &nbs p; - aPTT [...] 03:31: Push, [place] 10 mg 53 Q4HPRN, [facility] Starting Branch on [place] 05/29/22 at 2231, Until Discontinu ed, Routine, SBP > 160 and HR > 70 labetaloL 3-0 Yes 10mg 10 mg, Univer s (NORMODYNE) 4-17 Slow IV ity o f injection 03:31: Push, [place] 10 mg 53 Q4HPRN, [facility] Starting Branch on [place] 05/29/22 at 2231, Until Discontinu ed, Routine, SBP > 160 and HR > 70 traMADoL 2022-0 Yes 50mg 50 mg, Univers (ULTRAM) 4-17 Oral, Q6H, ity o f tablet 50 01:45: First dose [place] mg 00 on [facility] 05/29/22 at Branch 2044, Until Discontinu ed, Routine traMADoL 2022-0 Yes 50mg 50 mg, Univers (ULTRAM) 4-17 Oral, Q6H, ity o f tablet 50 01:45: First dose [place] mg 00 on [facility] 05/29/22 at Branch 2044, Until Discontinu ed, Routine traMADoL 2022-0 Yes 50mg 50 mg, Univers (ULTRAM) 4-17 Oral, Q6H, ity o f tablet 50 01:45: First dose [place] mg 00 on [facility] 05/29/22 at Branch 2044, Until Discontinu ed, Routine traMADoL 3-0 Yes 50mg 50 mg, Univers (ULTRAM) 4-17 Oral, Q6H, ity o f tablet 50 01:45: First dose [place] mg 00 on [facility] 05/29/22 at Branch 2044, Until Discontinu ed, Routine HYDROcodone 2022-0 Yes 1{tbl} 1 tablet, Univers -acetaminop 4-17 Oral, ity of hen (NORCO) 01:37: Q6HPRN, [place] 10-325 mg 54 Starting Medica l tablet 1 on [facility] tablet 05/29/22 at 2036, Until Discontinu [...] 5) 5-325 mg 06 :07 Starting [facility] tablet 1 on [place] Branch tablet 05/29/22 at 1203, Until 05/29/22 [...] [place] injection 00 05/29/22 at [facility] 0850, Branch Until Discontinu ed, Routine, Intra-op iodixanoL 2022-0 Yes PRN, Univers (VISIPAQUE 4-16 Starting ity o f 270-150 mL) 13:50: on [place] injection 00 05/29/22 at [facility] 0850, Branch Until Discontinu ed, Routine, Intra-op iodixanoL 2023-0 Yes PRN, Univers (VISIPAQUE 4-16 Starting ity o f 270-150 mL) 13:50: on [place] injection 05/29/22 at [facility] 0850, [place] Until Discontinu ed, Routine, Intra-op iodixanoL 3-0 Yes PRN, Univers (VISIPAQUE 4-16 Starting ity o f 270-150 mL) 13:50: on [place] injection 05/29/22 at [facility] 0850, [place] Until Discontinu ed, Routine, Intra-op lidocaine 2023-0 Yes PRN, Univers 1% (PF) 4-16 Starting ity of (XYLOCAINE) 13:00: on [place] injection 05/29/22 at [facility] [address] Until Discontinu ed, Routine, Intra-op lidocaine 3-0 Yes PRN, Univers 1% (PF) 4-16 Starting ity of (XYLOCAINE) 13:00: on [place] injection 05/29/22 at [facility] 0800, [place] Until Discontinu ed, Routine, Intra-op lidocaine 3-0 Yes PRN, Univers 1% (PF) 4-16 Starting ity of (XYLOCAINE) 13:00: on [place] injection 05/29/22 at [facility] 0800, [place] Until Discontinu ed, Routine, Intra-op lidocaine 3-0 Yes PRN, Univers 1% (PF) 4-16 Starting ity of (XYLOCAINE) 13:00: on [place] injection 05/29/22 at [facility] 0800, [place] Until Discontinu ed, Routine, Intra-op alteplase 2022-0 [...] mg 00 :00 dose, On Medical Sat [place] 05/28/22 at 1915, Routine HEPARIN 2022- No [...] e, Dosing and Testing: &nbs p;FOR [place], [facility] ONLY &nbs p; - [...] ity of unit/mL, 10 16:23: , Starting [place] mL vial) 36 on [facility] Medical for 05/28/22 at [place] Rebolusing 1123, Until Discontinu ed, Routine
Dosing based on aPPT testing parameters (refer to continuous heparin drip order).
sulfur 2022- No [id number] 5mL 5 mL, Univ ers hexafluorid 05-27 Intravenou i ty of e microsphr 18:30: 18:30 s, ONCE, 1 [place] (LUMASON) 00 :00 dose, On Medica l injection 5 Mon [facility] 05/27/22 at 1330, Routine
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 Restricted medication : HAROON MOYER enoxaparin 2022- No 1mg/kg 90 mg Uni vers (LOVENOX) 05-27 (rounded ity o f injection 14:07: 16:25 [place] 86.5 [place] 90 mg 50 :10 mg = 1 Medical mg/kg Branch ?86.5 kg), [facility], Q[facility], First dose on Mon05/27/22 at [...] g 00 First dose Medical on Mon [place] 05/27/22 at 0900, Until Discontinu ed, Routine [...] Branch 0800, Until Discontinu ed, Routine gabapentin 2022-2022- No 300mg 300 mg, Un mary (NEURONTIN) 05-27 Oral, TID, i ty of capsule 300 13:00: 04:23 First dose [place] mg 00 :21 on Fri Medical 05/27/22 at Branch 0800, Until Discontinu ed, Routine iopamidol 2022- No [id number] 100mL 100 mL, Univers (ISOVUE 05-27 [id number] Intravenou ity of 370-500 mL) 12:15: 12:15 [...] :15 Starting Medi [place] tablet 1 on [facility] tablet 05/26/22 at 2344, Until 05/29/22 at 1203, Routine, Pain (scale 4-6) ondansetron 3-0 Yes 4mg 4 mg, Slow Univers (ZOFRAN 4-14 IV [place], ity of (PF)) 01:30: Q6HPRN, [place] injection 4 58 Starting Medi [place] mg on [facility] Branch 05/26/22 at 2030, Until Discontinu ed, Routine, Nausea and Vomiting (N/V) ondansetron 2023-0 Yes 4mg 4 mg, Slow Univers (ZOFRAN 4-14 IV [place], ity of (PF)) 01:30: Q6HPRN, [place] injection 4 58 Starting Medi [place] mg on [facility] Branch 05/26/22 at 2030, Until Discontinu ed, Routine, Nausea and Vomiting (N/V) ondansetron 2023-0 Yes 4mg 4 mg, Slow Univers (ZOFRAN 4-14 IV [place], ity of (PF)) 01:30: Q6HPRN, [place] injection 4 58 Starting Medi [place]ordon mg on [facility] Branch 05/26/22 at 2030, Until Discontinu ed, Routine, Nausea and Vomiting (N/V) ondansetron 2023-0 Yes 4mg 4 mg, Slow Univers (ZOFRAN 4-14 IV [place], ity of (PF)) 01:30: Q6HPRN, [place] injection 4 58 Starting Medi gordon mg on [facility] 05/26/22 at 2030, Until Discontinu ed, Routine, Nausea and Vomiting (N/V) morpHINE (2 2022-0 2022- No 4mg 4 mg, Slow Univers mg/mL) 05-27 IV [place], ity of injection 4 01:30: 01:29 Q4HPRN, [place] mg 55 :55 Starting Medical on [facility] Branch 05/26/22 at 2030, Until 05/27/22 at [...] [place] mg 00 :00 dose, On [facility] 05/26/22 at 1845, Routine gabapentin 2022- No 300mg 300 mg, Un mary (NEURONTIN) 05-26 Oral, ity of capsule 300 23:00: 23:10 ONCE, 1 [place] mg 00 :00 dose, On [facility] 05/26/22 at 1800, MICHELLE methylpredn No 125mg 125 mg, U nivers isolone sod 05-26 Slow IV ity of succ 22:15: 21:28 Push, [place] (SOLU-MEDRO 00 :00 ONCE, 1 Medic al L) dose, On Branch injection [place] 125 mg 05/26/22 at 1715, MICHELLE furosemide No 40mg 40 mg, IV U nivers (LASIX) 05-26 [place], ity of injection 21:15: 21:19 ONCE, 1 [place] 40 mg 00 :00 dose, On [facility] 05/26/22 at 1615, MICHELLE ketorolac No 30mg 30 mg, Unive rs (TORADOL) 05-23 Intramuscu ity of injection 23:00: 22:35 [place], ONCE, [place] 30 mg 00 :00 1 dose, On [facility] 05/23/22 at 1800, Routine diazePAM No 2.5mg 2.5 mg, Univ ers (VALIUM) 05-23 Oral, ity of tablet 2.5 22:45: 23:09 ONCE, 1 [place] mg 00 :00 dose, On [facility] 05/23/22 at 1745, MICHELLE HYDROcodone 2022- No 1{tbl} 1 tablet, Univers -acetaminop 05-23 Oral, ONCE i ty of hen (NORCO) 11:45: 11:00 NOW, 1 [place] 10-325 mg 00 :00 dose, On Medica l tablet [address] [facility] tablet 05/23/22 at 0645, MICHELLE gabapentin 2022-0 2022- No 600mg 600 mg, Un mary (NEURONTIN) 05-23 Oral, ity of capsule 600 09:00: 09:09 ONCE, 1 [place] mg 00 :00 dose, On Medical [facility] Branch 05/23/22 at 0400, MICHELLE dexamethaso 2022-0 2022- No 10mg 10 mg, Uni vers ne sod phos 05-23 Intramuscu i ty of PF 09:00: 09:07 lar, ONCE, [place] injection 00 :00 1 dose, On Medi [place]ordon [address] [facility] 05/23/22 at 0400, 1 mL gabapentin 3-0 Yes [id number] 300mg Take 1 Univers 300 mg 4-10 capsule by ity of capsule 00:00: mouth in [place] [address] the [facility] and 1 capsule at noon and 1 capsule in the evening. gabapentin 2023-0 Yes [id number] 300mg Take 1 Univers 300 mg 4-10 capsule by ity of capsule 00:00: mouth in [place] [address] the [facility] and 1 capsule at noon and 1 capsule in the evening. gabapentin 2023-0 Yes [id number] 300mg Take 1 Univers 300 mg 4-10 capsule by ity of capsule 00:00: mouth in [place] [address] the [facility] and 1 capsule at noon and 1 capsule in the evening. ketorolac 2023-0 Yes [id number] 10mg Take 1 U nivers 10 mg 4-10 tablet by ity of tablet 00:00: mouth [place] [address] every 6 Medical (six) Branch hours as needed for Pain (scale 7-10). gabapentin 2023-0 Yes [id number] 300mg Take 1 Univers 300 mg 4-10 capsule by ity of capsule 00:00: mouth in [place] [address] the [facility] morning [place] and 1 capsule at noon and 1 capsule in the evening. ketorolac 2023-0 Yes [id number] 10mg Take 1 U nivers 10 mg 4-10 tablet by ity of tablet 00:00: mouth [place] [address] every 6 Medical (six) Branch hours as needed for Pain (scale 7-10). gabapentin 2023-0 Yes [id number] 300mg Take 1 Univers 300 mg 4-10 capsule by ity of capsule 00:00: mouth in [place] 00 the Medical morning Branch and 1 capsule at noon and 1 capsule in the evening. ketorolac 2023-0 Yes [id number] 10mg Take 1 U nivers 10 mg 4-10 tablet by ity of tablet 00:00: mouth [place] 00 every 6 Medical (six) Branch hours as needed for Pain (scale 7-10). gabapentin 2023-0 Yes [id number] 300mg Take 1 Univers 300 mg 4-10 capsule by ity of capsule 00:00: mouth in [place] 00 the Medical morning Branch and 1 capsule at noon and 1 capsule in the evening. ketorolac 2023-0 Yes [id number] 10mg Take 1 U nivers 10 mg 4-10 tablet by ity of tablet 00:00: mouth [place] 00 every 6 Medical (six) Branch hours as needed for Pain (scale 7-10). gabapentin 2023-0 Yes [id number] 300mg Take 1 Univers 300 mg 4-10 capsule by ity of capsule 00:00: mouth in [place] 00 the Medical morning Branch and 1 capsule at noon and 1 capsule in the evening. ketorolac 2023-0 Yes [id number] 10mg Take 1 U nivers 10 mg 4-10 tablet by ity of tablet 00:00: mouth [place] 00 every 6 Medical (six) Branch hours as needed for Pain (scale 7-10). gabapentin 2023-0 Yes [id number] 300mg Take 1 Univers 300 mg 4-10 capsule by ity of capsule 00:00: mouth in [place] 00 the Medical morning Branch and 1 capsule at noon and 1 capsule in the evening. ketorolac 2023-0 Yes [id number] 10mg Take 1 U nivers 10 mg 4-10 tablet by ity of tablet 00:00: mouth [place] 00 every 6 Medical (six) Branch hours as needed for Pain (scale 7-10). gabapentin 2023-0 2023- No [id number] 300mg Take 1 Univers 300 mg 4-10 04-25 capsule by ity of capsule 00:00: 00:00 mouth in [place] 00 :00 the Medical morning Branch and 1 capsule at noon and 1 capsule in the evening. methocarbam 2022- No [id number] 500mg Take 1 Univers oL 500 mg 4-10 04-25 tablet by ity of tablet 00:00: 00:00 mouth 4 [place] 00 :00 (four) Medical times Branch daily for 7 days. ketorolac 2022- No [id number] 10mg Take 1 Univers 10 mg 4-10 04-25 tablet by ity of tablet 00:00: 00:00 mouth [place] 00 :00 every 6 Medical (six) Branch hours as needed for Pain (scale 7-10). methocarbam 2022- Yes [id number] 500mg Take 1 Univers oL 500 mg 4-10 04-18 tablet by ity of tablet 00:00: 04:59 mouth 4 [place] 00 :00 (four) Medical times Branch daily for 7 days. methocarbam 2022- Yes [id number] 500mg Take 1 Univers oL 500 mg 4-10 04-18 tablet by ity of tablet 00:00: 04:59 mouth 4 [place] 00 :00 (four) Medical times Branch daily for 7 days. methocarbam 2022- Yes [id number] 500mg Take 1 Univers oL 500 mg 4-10 04-18 tablet by ity of tablet 00:00: 04:59 mouth 4 [place] 00 :00 (four) Medical times Branch daily for 7 days. methocarbam 2022- No [id number] 500mg Take 1 Univers oL 500 mg 4-10 04-18 tablet by ity of tablet 00:00: 04:59 mouth 4 [place] 00 :00 (four) Medical times Branch daily for 7 days. methocarbam 2022- No [id number] 500mg Take 1 Univers oL 500 mg 4-10 04-18 tablet by ity of tablet 00:00: 04:59 mouth 4 [place] 00 :00 (four) Medical times Branch daily for 7 days. mirtazapine 2022-0 Yes [id number] 45mg Take 1 Univers 45 mg 2-23 tablet by ity of tablet 00:00: mouth at [place] 00 bedtime. Medical Branch mirtazapine 2022-0 Yes [id number] 45mg Take 1 Univers 45 mg 2-23 tablet by ity of tablet 00:00: mouth at [place] 00 bedtime. Medical Branch mirtazapine 3-0 Yes [id number] 45mg Take 1 Univers 45 mg 2-23 tablet by ity of tablet 00:00: mouth at [place] [address] bedtime. Medical Branch mirtazapine 3-0 Yes [id number] 45mg Take 1 Univers 45 mg 2-23 tablet by ity of tablet 00:00: mouth at [place] [address] bedtime. Medical Branch mirtazapine 3-0 Yes [id number] 45mg Take 1 Univers 45 mg 2-23 tablet by ity of tablet 00:00: mouth at [place] [address] bedtime. Medical Branch mirtazapine 3-0 Yes [id number] 45mg Take 1 Univers 45 mg 2-23 tablet by ity of tablet 00:00: mouth at [place] [address] bedtime. Medical Branch mirtazapine 3-0 Yes [id number] 45mg Take 1 Univers 45 mg 2-23 tablet by ity of tablet 00:00: mouth at [place] [address] bedtime. Medical Branch mirtazapine 3-0 Yes [id number] 45mg Take 1 Univers 45 mg 2-23 tablet by ity of tablet 00:00: mouth at [place] [address] bedtime. Medical Branch mirtazapine 3-0 Yes [id number] 45mg Take 1 Univers 45 mg 2-23 tablet by ity of tablet 00:00: mouth at [place] [address] bedtime. Medical Branch mirtazapine 3-0 Yes [id number] 45mg Take 1 Univers 45 mg 2-23 tablet by ity of tablet 00:00: mouth at [place] [address] bedtime. Medical Branch mirtazapine 3-0 Yes [id number] 45mg Take 1 Univers 45 mg 2-23 tablet by ity of tablet 00:00: mouth at [place] [address] bedtime. Medical Branch mirtazapine 3-0 Yes [id number] 45mg Take 1 Univers 45 mg 2-23 tablet by ity of tablet 00:00: mouth at [place] [address] bedtime. Medical Branch mirtazapine 3-0 Yes [id number] 45mg Take 1 Univers 45 mg 2-23 tablet by ity of tablet 00:00: mouth at [place] [address] bedtime. Medical Branch mirtazapine 3-0 Yes [id number] 45mg Take 1 Univers 45 mg 2-23 tablet by ity of tablet 00:00: mouth at [place] [address] bedtime. Medical Branch mirtazapine 2022-0 Yes [id number] 45mg Take 1 Univers 45 mg 2-23 tablet by ity of tablet 00:00: mouth at [place] [address] bedtime. Medical Branch mirtazapine 2022-0 Yes [id number] 45mg Take 1 Univers 45 mg 2-23 tablet by ity of tablet 00:00: mouth at [place] [address] bedtime. Medical Branch mirtazapine 2022-0 Yes [id number] 45mg Take 1 Univers 45 mg 2-23 tablet by ity of tablet 00:00: mouth at [place] [address] bedtime. Medical Branch mirtazapine 2022-0 Yes [id number] 45mg Take 1 Univers 45 mg 2-23 tablet by ity of tablet 00:00: mouth at [place] [address] bedtime. Medical Branch mirtazapine 2022-0 Yes [id number] 45mg Take 1 Univers 45 mg 2-23 tablet by ity of tablet 00:00: mouth at [place] [address] bedtime. Medical Branch mirtazapine 2022-0 Yes [id number] 45mg Take 1 Univers 45 mg 2-23 tablet by ity of tablet 00:00: mouth at [place] [address] bedtime. Medical Branch mirtazapine 2022-0 Yes [id number] 45mg Take 1 Univers 45 mg 2-23 tablet by ity of tablet 00:00: mouth at [place] [address] bedtime. Medical Branch mirtazapine 2022-0 Yes [id number] 45mg Take 1 Univers 45 mg 2-23 tablet by ity of tablet 00:00: mouth at [place] [address] bedtime. Medical Branch mirtazapine 2022-0 Yes [id number] 45mg Take 1 Univers 45 mg 2-23 tablet by ity of tablet 00:00: mouth at [place] [address] bedtime. Medical Branch mirtazapine 2022-0 Yes [id number] 45mg Take 1 Univers 45 mg 2-23 tablet by ity of tablet 00:00: mouth at [place] [address] bedtime. Medical Branch mirtazapine 2022-0 Yes [id number] 45mg Take 1 Univers 45 mg 2-23 tablet by ity of tablet 00:00: mouth at [place] [address] bedtime. Medical Branch mirtazapine 3-0 2023- No [id number] 45mg Take 1 Univers 45 mg 2-23 04-25 tablet by ity of tablet 00:00: 00:00 mouth at [place] 00 :00 bedtime. Medical Branch mirtazapine 2021- Yes [id number] 30mg Take 1 Univers 30 mg 2-21 tablet by ity of tablet 00:00: mouth at [place] [address] bedtime. Medical Branch mirtazapine 2021- Yes [id number] 30mg Take 1 Univers 30 mg 2-21 tablet by ity of tablet 00:00: mouth at [place] [address] bedtime. Medical Branch mirtazapine 2021- Yes [id number] 30mg Take 1 Univers 30 mg 2-21 tablet by ity of tablet 00:00: mouth at [place] [address] bedtime. Medical Branch mirtazapine 2021-02 Yes [id number] 30mg Take 1 Univers 30 mg 2-21 tablet by ity of tablet 00:00: mouth at [place] [address] bedtime. Medical Branch mirtazapine 2021- Yes [id number] 30mg Take 1 Univers 30 mg 2-21 tablet by ity of tablet 00:00: mouth at [place] [address] bedtime. Medical Branch mirtazapine 2021-02 Yes [id number] 30mg Take 1 Univers 30 mg 2-21 tablet by ity of tablet 00:00: mouth at [place] [address] bedtime. Medical Branch mirtazapine 2021-02 Yes [id number] 30mg Take 1 Univers 30 mg 2-21 tablet by ity of tablet 00:00: mouth at [place] [address] bedtime. Medical Branch mirtazapine 2021-02 Yes [id number] 30mg Take 1 Univers 30 mg 2-21 tablet by ity of tablet 00:00: mouth at [place] [address] bedtime. Medical Branch mirtazapine 2021- Yes [id number] 30mg Take 1 Univers 30 mg 2-21 tablet by ity of tablet 00:00: mouth at [place] [address] bedtime. [facility] Branch mirtazapine 2021-2022- No [id number] 30mg Take 1 Univers 30 mg 2-21 02-23 tablet by ity of tablet 00:00: 00:00 mouth at [place] 00 :00 bedtime. [facility] Branch mirtazapine 2021-02- No [id number] 30mg Take 1 Univers 30 mg 2-21 02-23 tablet by ity of tablet 00:00: 00:00 mouth at [place] 00 :00 bedtime. Medical Branch traMADoL 50 2021-02 Yes 50mg Take 1 Univ ers mg tablet 2-08 tablet by ity o f 00:00: mouth in [place] the Medical morning Branch and 1 tablet at noon and 1 tablet in the evening. traMADoL 50 2021-02 Yes 50mg Take 1 Univ ers mg tablet 2-08 tablet by ity o f 00:00: mouth in [place] 00 the Medical morning Branch and 1 tablet at noon and 1 tablet in the evening. traMADoL 50 2021-02 Yes 50mg Take 1 Univ ers mg tablet 2-08 tablet by ity o f 00:00: mouth in [place] the Medical morning Branch and 1 tablet at noon and 1 tablet in the evening. traMADoL 50 2021-02 Yes 50mg Take 1 Univ ers mg tablet 2-08 tablet by ity o f 00:00: mouth in [place] the Medical morning Branch and 1 tablet at noon and 1 tablet in the evening. traMADoL 50 2021-02 Yes 50mg Take 1 Univ ers mg tablet 2-08 tablet by ity o f 00:00: mouth in [place] the Medical morning Branch and 1 tablet at noon and 1 tablet in the evening. traMADoL 50 2021-02 Yes 50mg Take 1 Univ ers mg tablet 2-08 tablet by ity o f 00:00: mouth in [place] the Medical morning Branch and 1 tablet at noon and 1 tablet in the evening. traMADoL 50 2021-02 Yes 50mg Take 1 Univ ers mg tablet 2-08 tablet by ity o f 00:00: mouth in [place] the Medical morning Branch and 1 tablet at noon and 1 tablet in the evening. traMADoL 50 2021-02 Yes 50mg Take 1 Univ ers mg tablet 2-08 tablet by ity o f 00:00: mouth in [place] the Medical morning Branch and 1 tablet at noon and 1 tablet in the evening. traMADoL 50 2021-1 Yes 50mg Take 1 Univ ers mg tablet 2-08 tablet by ity o f 00:00: mouth in [place] [address] the Medical morning Branch and 1 tablet at noon and 1 tablet in the evening. traMADoL 50 2021- Yes 50mg Take 1 Univ ers mg tablet 2-08 tablet by ity o f 00:00: mouth in [place] [address] the Medical morning Branch and 1 tablet at noon and 1 tablet in the evening. traMADoL 50 2021-02 Yes 50mg Take 1 Univ ers mg tablet 2-08 tablet by ity o f 00:00: mouth in [place] 00 the Medical morning Branch and 1 tablet at noon and 1 tablet in the evening. traMADoL 50 2021-02 Yes 50mg Take 1 Univ ers mg tablet 2-08 tablet by ity o f 00:00: mouth in [place] 00 the Medical morning Branch and 1 tablet at noon and 1 tablet in the evening. traMADoL 50 2021-02 Yes 50mg Take 1 Univ ers mg tablet 2-08 tablet by ity o f 00:00: mouth in [place] 00 the Medical morning Branch and 1 tablet at noon and 1 tablet in the evening. traMADoL 50 2021-02 Yes 50mg Take 1 Univ ers mg tablet 2-08 tablet by ity o f 00:00: mouth in [place] 00 the Medical morning Branch and 1 tablet at noon and 1 tablet in the evening. traMADoL 50 2021-02 Yes 50mg Take 1 Univ ers mg tablet 2-08 tablet by ity o f 00:00: mouth in [place] the Medical morning Branch and 1 tablet at noon and 1 tablet in the evening. traMADoL 50 2021-02 Yes 50mg Take 1 Univ ers mg tablet 2-08 tablet by ity o f 00:00: mouth in [place] 00 the Medical morning Branch and 1 tablet at noon and 1 tablet in the evening. traMADoL 50 2021-02 Yes 50mg Take 1 Univ ers mg tablet 2-08 tablet by ity o f 00:00: mouth in [place] the Medical morning Branch and 1 tablet at noon and 1 tablet in the evening. traMADoL 50 2021-02 Yes 50mg Take 1 Univ ers mg tablet 2-08 tablet by ity o f 00:00: mouth in [place] 00 the Medical morning Branch and 1 tablet at noon and 1 tablet in the evening. traMADoL 50 2021-02 Yes 50mg Take 50 mg Univers mg tablet 2-08 by mouth ity of 00:00: in the [place] morning Medical and 50 mg Branch at noon and 50 mg in the evening. traMADoL 50 2021-02 Yes 50mg Take 50 mg Univers mg tablet 2-08 by mouth ity of 00:00: in the [place] morning Medical and 50 mg Branch at noon and 50 mg in the evening. traMADoL 50 2021- Yes 50mg Take 50 mg Univers mg tablet 2-08 by mouth ity of 00:00: in the [place] 00 morning Medical and 50 mg Branch at noon and 50 mg in the evening. traMADoL 50 2021- Yes 50mg Take 50 mg Univers mg tablet 2-08 by mouth ity of 00:00: in the [place] 00 morning Medical and 50 mg Branch at noon and 50 mg in the evening. traMADoL 50 2021-02 Yes 50mg Take 50 mg Univers mg tablet 2-08 by mouth ity of 00:00: in the [place] 00 morning Medical and 50 mg Branch at noon and 50 mg in the evening. traMADoL 50 2021- Yes 50mg Take 50 mg Univers mg tablet 2-08 by mouth ity of 00:00: in the [place] 00 morning Medical and 50 mg Branch at noon and 50 mg in the evening. traMADoL 50 2021-02 Yes 50mg Take 50 mg Univers mg tablet 2-08 by mouth ity of 00:00: in the [place] morning Medical and 50 mg Branch at noon and 50 mg in the evening. traMADoL 50 2021-02 Yes 50mg Take 50 mg Univers mg tablet 2-08 by mouth ity of 00:00: in the [place] morning Medical and 50 mg Branch at noon and 50 mg in the evening. traMADoL 50 2021- Yes 50mg Take 50 mg Univers mg tablet 2-08 by mouth ity of 00:00: in the [place] morning Medical and 50 mg Branch at noon and 50 mg in the evening. traMADoL 50 2021- Yes 50mg Take 50 mg Univers mg tablet 2-08 by mouth ity of 00:00: in the [place] morning Medical and 50 mg Branch at noon and 50 mg in the evening. traMADoL 50 2021- Yes 50mg Take 50 mg Univers mg tablet 2-08 by mouth ity of 00:00: in the [place] morning Medical and 50 mg Branch at noon and 50 mg in the evening. traMADoL 50 2021-1 Yes 50mg Take 50 mg Univers mg tablet 2-08 by mouth ity of 00:00: in the [place] 00 morning Medical and 50 mg Branch at noon and 50 mg in the evening. traMADoL 50 2021- Yes 50mg Take 50 mg Univers mg tablet 2-08 by mouth ity of 00:00: in the [place] 00 morning Medical and 50 mg Branch at noon and 50 mg in the evening. traMADoL 50 2021-02 Yes 50mg Take 50 mg Univers mg tablet 2-08 by mouth ity of 00:00: in the [place] 00 morning Medical and 50 mg Branch at noon and 50 mg in the evening. traMADoL 50 2021-02 Yes 50mg Take 1 Univ ers mg tablet 2-08 tablet by ity o f 00:00: mouth in [place] 00 the Medical morning Branch and 1 tablet at noon and 1 tablet in the evening. traMADoL 50 2021-02 Yes 50mg Take 1 Univ ers mg tablet 2-08 tablet by ity o f 00:00: mouth in [place] 00 the Medical morning Branch and 1 tablet at noon and 1 tablet in the evening. traMADoL 50 2021-02 Yes 50mg Take 1 Univ ers mg tablet 2-08 tablet by ity o f 00:00: mouth in [place] 00 the Medical morning Branch and 1 tablet at noon and 1 tablet in the evening. traMADoL 50 2021-02 No 50mg Take 1 Uni vers mg tablet 2-08 04-25 tablet by ity of 00:00: 00:00 mouth in [place] 00 :00 the Medical morning Branch and 1 tablet at noon and 1 tablet in the evening. mirtazapine 2021-02 Yes [id number] 15mg Take 1 [facility] 15 mg 1-21 tablet by ity of tablet 00:00: mouth at [place] [address] bedtime. Medical Branch mirtazapine 2021-02 Yes [id number] 15mg Take 1 [facility] 15 mg 1-21 tablet by ity of tablet 00:00: mouth at [place] [address] bedtime. Medical Branch mirtazapine 2021-02 Yes [id number] 15mg Take 1 [facility] 15 mg 1-21 tablet by ity of tablet 00:00: mouth at [place] 00 bedtime. Medical Branch mirtazapine 2021-02- No [id number] 15mg Take 1 [facility] 15 mg 1-21 12-21 tablet by ity of tablet 00:00: 00:00 mouth at [place] 00 :00 bedtime. [facility] Branch mirtazapine 2021-02- No [id number] 15mg Take 1 Univers 15 mg 1-21 12-21 tablet by ity of tablet 00:00: 00:00 mouth at [place] 00 :00 bedtime. Medical Branch vortioxetin 2021-02 Yes [id number] 5mg Take 1 Univers e 0-20 tablet by ity of (TRINTELLIX 00:00: mouth in [place] ) 5 mg Tab 00 the Medical morning. Branch vortioxetin 2021-02 Yes [id number] 5mg Take 1 Univers e 0-20 tablet by ity of (TRINTELLIX 00:00: mouth in [place] ) 5 mg Tab 00 the Medical morning. Branch vortioxetin 2021-02 Yes [id number] 5mg Take 1 Univers e 0-20 tablet by ity of (TRINTELLIX 00:00: mouth in [place] ) 5 mg Tab 00 the Medical morning. Branch vortioxetin 2021-02 Yes [id number] 5mg Take 1 Univers e 0-20 tablet by ity of (TRINTELLIX 00:00: mouth in [place] ) 5 mg Tab 00 the Medical morning. Branch vortioxetin 2021-02 Yes [id number] 5mg Take 1 Univers e 0-20 tablet by ity of (TRINTELLIX 00:00: mouth in [place] ) 5 mg Tab 00 the Medical morning. Branch vortioxetin 2021-02 Yes [id number] 5mg Take 1 Univers e 0-20 tablet by ity of (TRINTELLIX 00:00: mouth in [place] ) 5 mg Tab 00 the Medical morning. Branch vortioxetin 2021-02- No [id number] 5mg Take 1 Univers e 0-20 11-21 tablet by ity of (TRINTELLIX 00:00: 00:00 mouth in [place] ) 5 mg Tab 00 :00 the Medical morning. Branch vortioxetin 2021-02- No [id number] 5mg Take 1 Univers e 0-20 11-21 tablet by ity of (TRINTELLIX 00:00: 00:00 mouth in [place] ) 5 mg Tab 00 :00 the Medical morning. Branch DULoxetine Yes [id number] 20mg Take 1 [facility] 20 mg 9-20 capsule by ity of capsule 00:00: mouth in [place] 00 the Medical morning. Branch DULoxetine 2022-0 Yes [id number] 20mg Take 1 Univers 20 mg 9-20 capsule by ity of capsule 00:00: mouth in [place] 00 the Medical morning. Branch DULoxetine 2021-0 Yes [id number] 20mg Take 1 [facility] 20 mg 9-20 capsule by ity of capsule 00:00: mouth in [place] 00 the Medical morning. Branch DULoxetine 2021-0 Yes [id number] 20mg Take 1 Univers 20 mg 9-20 capsule by ity of capsule 00:00: mouth in [place] 00 the Medical morning. Branch DULoxetine 2021-0 Yes [id number] 20mg Take 1 [facility] 20 mg 9-20 capsule by ity of capsule 00:00: mouth in [place] 00 the Medical morning. Branch DULoxetine 2021-0 2- No [id number] 20mg Take 1 [facility] 20 mg 9-20 10-20 capsule by ity of capsule 00:00: 00:00 mouth in [place] 00 :00 the Medical morning. Branch DULoxetine 2021-0 2- No [id number] 20mg Take 1 Univers 20 mg 9-20 10-20 capsule by ity of capsule 00:00: 00:00 mouth in [place] 00 :00 the Medical morning. Branch gabapentin 2021-0 Yes [id number] 300mg Take 1 Univers 300 mg 8-23 capsule by ity of capsule 00:00: mouth at [place] 00 bedtime. Medical Branch gabapentin 2-0 Yes [id number] 300mg Take 1 Univers 300 mg 8-23 capsule by ity of capsule 00:00: mouth at [place] 00 bedtime. Medical Branch gabapentin 2-0 Yes [id number] 300mg Take 1 Univers 300 mg 8-23 capsule by ity of capsule 00:00: mouth at [place] 00 bedtime. Medical Branch gabapentin 2-0 2022- No [id number] 300mg Take 1 Univers 300 mg 8-23 09-20 capsule by ity of capsule 00:00: 00:00 mouth at [place] 00 :00 bedtime. Medical Branch gabapentin 2022-0 2022- No [id number] 300mg Take 1 Univers 300 mg 8-23 09-20 capsule by ity of capsule 00:00: 00:00 mouth at [place] 00 :00 bedtime. Medical Branch mirtazapine 2022-0 2022- No 30mg Take 30 mg Univers 30 mg 09-20- by mouth ity of tablet 00:00: 00:00 in the [place] 00 :00 morning. Medical Branch mirtazapine 2021-0 2022- No 30mg Take 30 mg Univers 30 mg 09-20 by mouth ity of tablet 00:00: 00:00 in the [place] 00 :00 morning. Medical Branch sertraline 2020-0 [...] 20:45: daily. [facility] l Saline 2014-0 No Notes: [facility] Flush 0.9% 07-22 (Same as: l 18:36: BD [place] 00 Posiflush) Saline No Notes: [facility] Flush 0.9% 6-09 (Same as: l 18:36: BD [place] 00 Posiflush) Saline No Notes: [facility]oria Flush 0.9% 6-09 (Same as: l 18:36: BD [place] 00 Posiflush) Saline No Notes: [facility] Flush 0.9% 6-09 (Same as: l 18:36: BD [place] 00 Posiflush) Saline No Notes: [facility]oria Flush 0.9% 6-09 (Same as: l 18:36: BD [place] 00 Posiflush) Saline No Notes: [facility] Flush 0.9% 6-09 (Same as: l 18:36: BD [place] 00 Posiflush) Saline No Notes: [facility] Flush 0.9% 6-09 (Same as: l 18:36: BD [place] 00 Posiflush) Saline No Notes: Memoria Flush 0.9% 6-09 (Same as: l 18:36: BD [place] 00 Posiflush) Saline No Notes: [facility]oria Flush 0.9% 6-09 (Same as: l 18:36: BD [place] 00 Posiflush) Saline No Notes: Memoria Flush [...] 0.9% 6-09 (Same as: l 18:36: BD [place] 00 Posiflush) Saline No Notes: Memoria Flush 0.9% 6-09 (Same as: l 18:36: BD [place] 00 Posiflush) Saline No Notes: [facility] Flush 0.9% 6-09 (Same as: l 18:36: BD [place] 00 Posiflush) Saline No Notes: Memoria Flush 0.9% 6-09 (Same as: l 18:36: BD [place] 00 Posiflush) Saline No Notes: Memoria Flush 0.9% 6-09 (Same as: l 18:36: BD [place] 00 Posiflush) Saline No Notes: Memoria Flush 0.9% 6-09 (Same as: l 18:36: BD [place] 00 Posiflush) Saline No Notes: Memoria Flush 0.9% 6-09 (Same as: l 18:36: BD [place] 00 Posiflush) Saline No Notes: Memoria Flush 0.9% 6-09 (Same as: l 18:36: BD [place] 00 Posiflush) Saline No Notes: Memoria Flush 0.9% 6-09 (Same as: l 18:36: BD [place] 00 Posiflush) Saline No Notes: Memoria Flush 0.9% 6-09 (Same as: l 18:36: BD [place] 00 Posiflush) Saline No Notes: Memoria Flush 0.9% 6-09 (Same as: l 18:36: BD [place] 00 Posiflush) Saline No Notes: Memoria Flush 0.9% 6-09 (Same as: l 18:36: BD [place] 00 Posiflush) Saline No Notes: Memoria Flush 0.9% 6-09 (Same as: l 18:36: BD [place] 00 Posiflush) Saline No Notes: Memoria Flush 0.9% 6-09 (Same as: l 18:36: BD [place] 00 Posiflush) Saline No Notes: Memoria Flush 0.9% 6-09 (Same as: l 18:36: BD [place] 00 Posiflush) Saline No Notes: Memoria Flush 0.9% 6-09 (Same as: l 18:36: BD [place] 00 Posiflush) Saline No Notes: Memoria Flush 0.9% 6-09 (Same as: l 18:36: BD [place] 00 Posiflush) Saline No Notes: Memoria Flush [...] 14:11:00 73 mm[Hg] Unive rsity of pressure [facility] [place] [facility] Heart rate 2022-07-16 14:11:00 62 /min Universi ty [facility] Body temperature 2022-07-16 14:11:00 36.33 [facility]ita [facility] 2022-07-16 14:11:00 20 /min [facility] Oxygen saturation in 2022-07-16 14:11:00 100 /min [facility] Arterial blood by [facility] Pulse oximetry Branch WEIGHT 2022-07-12 06:00:00 86 kg WEIGHT 2022-07-12 06:00:00 86 kg Systolic blood 2022-07-11 15:10:00 117 mm[Hg] Univer sity of [facility] Diastolic blood 2022-07-11 15:10:00 68 mm[Hg] Unive rsity of pressure [facility] [place] [facility] Heart rate 2022-07-11 15:10:00 74 /min Universi [facility] Body temperature 2022-07-11 15:10:00 36.94 Nita [facility] Respiratory rate 2022-07-11 15:10:00 18 /min Univ ersity of [facility] [place] [facility] Body weight 2022-07-11 15:10:00 90.719 kg Universi [facility] BMI 2022-07-11 15:10:00 32.28 kg/m2 [facility] Oxygen saturation in 2022-07-11 15:10:00 98 /min University of Arterial blood by [facility] gordon Pulse oximetry Branch Systolic blood 2022-07-11 11:20:00 133 mm[Hg] Univer sity of pressure [place] [facility] Diastolic blood 2022-07-11 11:20:00 69 mm[Hg] Unive rsity of pressure [place] [facility] Heart rate 2022-07-11 11:20:00 78 /min Universi ty of [place] [facility] Respiratory rate 2022-07-11 11:20:00 18 /min Univ ersity of [place] [facility] Oxygen saturation in 2022-07-11 11:20:00 99 /min University of Arterial blood by [facility] Pulse oximetry Branch Body temperature 2022-07-11 09:24:00 36.83 Nita Univ ersity of [place] [facility] Body weight 2022-07-11 09:24:00 90.719 kg Universi ty of [place] [facility] BMI 2022-07-11 09:24:00 32.28 kg/m2 Universi ty of [place] [facility] Systolic blood 2022-07-08 18:24:00 130 mm[Hg] Univer sity of pressure [place] [facility] Diastolic blood 2022-07-08 18:24:00 57 mm[Hg] Unive rsity of pressure [place] [facility] Heart rate 2022-07-08 18:24:00 87 /min Universi ty of [place] [facility] Body temperature 2022-07-08 18:24:00 36.72 Nita Univ ersity of [place] [facility] Respiratory rate 2022-07-08 18:24:00 18 /min Univ ersity of [place] [facility] Body weight 2022-07-08 18:24:00 90.719 kg Universi ty of [place] [facility] BMI 2022-07-08 18:24:00 32.28 kg/m2 Universi ty of [place] [facility] Oxygen saturation in 2022-07-08 18:24:00 97 /min University of Arterial blood by [facility] Pulse oximetry Branch Systolic blood 2022-07-05 14:00:00 155 mm[Hg] Univer sity of pressure [place] [facility] Diastolic blood 2022-07-05 14:00:00 80 mm[Hg] Unive rsity of pressure [place] [facility] Heart rate 2022-07-05 14:00:00 76 /min Universi ty of [place] [facility] Body temperature 2022-07-05 14:00:00 37.56 Nita [facility] ersity of [place] [facility] Respiratory rate 2022-07-05 14:00:00 16 /min Univ ersity of [place] [facility] Oxygen saturation in 2022-07-05 14:00:00 98 /min University of Arterial blood by [facility] Pulse oximetry Branch Body weight 2022-07-05 10:49:00 90.719 kg Universi ty of [place] [facility] BMI 2022-07-05 10:49:00 32.28 kg/m2 Universi ty of [place] [facility] HEIGHT 2022-06-21 11:16:00 167.6 cm WEIGHT 2022-06-21 11:16:00 87.181 kg HEIGHT 2022-06-21 11:16:00 167.6 cm WEIGHT 2022-06-21 11:16:00 87.181 kg Systolic blood 2022-06-16 16:05:00 112 mm[Hg] Univer sity of pressure [place] [facility] Diastolic blood 2022-06-16 16:05:00 72 mm[Hg] Unive rsity of pressure [place] [facility] Heart rate 2022-06-16 16:05:00 90 /min Universi ty of [place] [facility] Body temperature 2022-06-16 16:05:00 36.72 Nita Univ ersity of [place] [facility] Respiratory rate 2022-06-16 16:05:00 16 /min Univ ersity of [place] [facility] Body height 2022-06-16 16:05:00 167.6 cm Universi ty of [place] [facility] Body weight 2022-06-16 16:05:00 91.173 kg Universi ty of [place] [facility] BMI 2022-06-16 16:05:00 32.44 kg/m2 Universi ty of [place] [facility] Oxygen saturation in 2022-06-16 16:05:00 100 /min University of Arterial blood by [facility] gordon Pulse oximetry Branch Systolic blood 2022-06-07 18:25:00 140 mm[Hg] Univer sity of pressure [place] [facility] Diastolic blood 2022-06-07 18:25:00 74 mm[Hg] Unive rsity of pressure [place] [facility] Heart rate 2022-06-07 18:25:00 70 /min Universi ty of [place] [facility] Body temperature 2022-06-07 18:25:00 36.44 Nita Univ ersity of [place] [facility] Respiratory rate 2022-06-07 18:25:00 20 /min Univ ersity of [place] [facility] Oxygen saturation in 2022-06-07 18:25:00 100 /min University of Arterial blood by [facility] Pulse oximetry Branch Body weight 2022-05-27 08:00:00 86.456 kg Universi ty of [place] [facility] BMI 2022-05-27 08:00:00 30.76 kg/m2 Universi ty of [place] [facility] Body height 2022-05-27 02:20:00 167.6 cm Universi ty of [place] [facility] Systolic blood 2022-06-03 10:48:00 136 mm[Hg] Univer sity of pressure [place] [facility] Diastolic blood 2022-06-03 10:48:00 67 mm[Hg] Unive rsity of pressure [place] [facility] Heart rate 2022-06-03 10:48:00 80 /min Universi ty of [place] [facility] Body temperature 2022-06-03 10:48:00 36.28 Nita Univ ersity of [place] [facility] Respiratory rate 2022-06-03 10:48:00 18 /min Univ ersity of [place] [facility] Oxygen saturation in 2022-06-03 10:48:00 97 /min University of Arterial blood by [facility] Pulse oximetry Branch Body weight 2022-05-27 08:00:00 86.456 kg Universi ty of [place] [facility] BMI 2022-05-27 08:00:00 30.76 kg/m2 Universi ty of [place] [facility] Body height 2022-05-27 02:20:00 167.6 cm Universi ty of [place] [facility] Systolic blood 2022-05-31 01:00:00 116 mm[Hg] Univer sity of pressure [place] [facility] Diastolic blood 2022-05-31 01:00:00 68 mm[Hg] Unive rsity of pressure [place] [facility] Heart rate 2022-05-31 01:00:00 79 /min Universi ty of [place] [facility] Body temperature 2022-05-31 01:00:00 37.78 Nita Univ ersity of [place] [facility] Respiratory rate 2022-05-31 01:00:00 14 /min Univ ersity of [place] [facility] Oxygen saturation in 2022-05-31 01:00:00 96 /min University of Arterial blood by [facility] gordon Pulse oximetry Branch Body weight 2022-05-27 08:00:00 86.456 kg Universi ty of [place] [facility] BMI 2022-05-27 08:00:00 30.76 kg/m2 Universi ty of [place] [facility] Body height 2022-05-27 02:20:00 167.6 cm Universi ty of [place] [facility] Systolic blood 2022-05-29 15:15:00 138 mm[Hg] Univer sity of pressure [place] [facility] Diastolic blood 2022-05-29 15:15:00 81 mm[Hg] Unive rsity of pressure [place] [facility] Heart rate 2022-05-29 15:15:00 62 /min Universi ty of [place] [facility] Body temperature 2022-05-29 15:15:00 36.39 Nita Univ ersity of [place] [facility] Respiratory rate 2022-05-29 15:15:00 18 /min Univ ersity of [place] [facility] Oxygen saturation in 2022-05-29 15:15:00 100 /min University of Arterial blood by [facility] Pulse oximetry Branch Body weight 2022-05-27 08:00:00 86.456 kg Universi ty of [place] [facility] BMI 2022-05-27 08:00:00 30.76 kg/m2 [facility]i ty of [place] [facility] Body height 2022-05-27 02:20:00 167.6 cm Universi ty of [place] [facility] Systolic blood 2022-05-23 21:38:00 137 mm[Hg] Univer sity of pressure [place] [facility] Diastolic blood 2022-05-23 21:38:00 89 mm[Hg] Unive rsity of pressure [place] [facility] Heart rate 2022-05-23 21:38:00 100 /min Universi ty of [place] [facility] Body temperature 2022-05-23 21:38:00 36.67 Nita Univ ersity of [place] [facility] Respiratory rate 2022-05-23 21:38:00 20 /min Univ ersity of [place] [facility] Body weight 2022-05-23 21:38:00 81.647 kg Universi ty of [place] [facility] BMI 2022-05-23 21:38:00 29.05 kg/m2 Universi ty of [place] [facility] Oxygen saturation in 2022-05-23 21:38:00 100 /min [facility] of Arterial blood by [place] [facility] Pulse oximetry Branch Systolic blood 2022-05-23 10:00:00 144 mm[Hg] Univer sity of pressure [place] [facility] Diastolic blood 2022-05-23 10:00:00 79 mm[Hg] Unive rsity of pressure [place] [facility] Heart rate 2022-05-23 10:00:00 77 /min Universi ty of [place] [facility] Respiratory rate 2022-05-23 10:00:00 14 /min Univ ersity of [place] [facility] Oxygen saturation in 2022-05-23 10:00:00 96 /min University of Arterial blood by [facility] gordon Pulse oximetry Branch Body temperature 2022-05-23 08:49:00 36.72 Nita Univ ersity of [place] [facility] Body height 2022-05-23 08:49:00 167.6 cm Universi ty of [place] [facility] Body weight 2022-05-23 08:49:00 81.647 kg Universi ty of [place] [facility] BMI 2022-05-23 08:49:00 29.05 kg/m2 [facility]i ty [facility] [place] [facility] Systolic blood 2022-05-19 14:32:00 153 mm[Hg] Univer sity of pressure [place] [facility] Diastolic blood 2022-05-19 14:32:00 82 mm[Hg] Unive rsity of pressure [place] [facility] Heart rate 2022-05-19 14:31:00 86 /min Universi ty of [place] [facility] Body temperature 2022-05-19 14:31:00 36.11 Nita Univ ersity of [place] [facility] Body height 2022-05-19 14:31:00 167.6 cm Universi ty [facility] [place] [facility] Body weight 2022-05-19 14:31:00 87.544 kg Universi ty of [place] [facility] BMI 2022-05-19 14:31:00 31.15 kg/m2 Universi ty of [place] [facility] Oxygen saturation in 2022-05-19 14:31:00 97 /min University of Arterial blood by [facility] gordon Pulse oximetry Branch Systolic blood 2022-05-03 14:51:00 136 mm[Hg] Univer sity of pressure [place] [facility] Diastolic blood 2022-05-03 14:51:00 80 mm[Hg] Unive rsity of pressure [place] [facility] Heart rate 2022-05-03 14:51:00 68 /min Universi ty of [facility] [place] [facility] Body height 2022-05-03 14:51:00 167.6 cm Universi ty of [place] [facility] Body weight 2022-05-03 14:51:00 84.369 kg Universi ty of [place] [facility] BMI 2022-05-03 14:51:00 30.02 kg/m2 Universi ty of [facility] Systolic blood 2022-04-13 15:41:00 128 mm[Hg] Univer sity of pressure [facility] Diastolic blood 2022-04-13 15:41:00 88 mm[Hg] Unive rsity of pressure [facility] Heart rate 2022-04-13 15:41:00 88 /min Universi ty of [facility] Respiratory rate 2022-04-13 15:41:00 18 /min Univ ersity of [facility] [place] [facility] Body height 2022-04-13 15:41:00 167.6 cm Universi ty of [facility] [place] [facility] Body weight 2022-04-13 15:41:00 86.047 kg Universi ty of [place] [facility] BMI 2022-04-13 15:41:00 30.62 kg/m2 Universi ty of [facility] [place] [facility] Oxygen saturation in 2022-04-13 15:41:00 96 /min University of Arterial blood by [facility] Pulse oximetry Branch Systolic blood 2022-04-07 16:41:00 162 mm[Hg] Univer sity of pressure [facility] [place] [facility] Diastolic blood 2022-04-07 16:41:00 89 mm[Hg] Unive rsity of pressure [facility] Heart rate 2022-04-07 16:41:00 81 /min Universi ty of [facility] [place] [facility] Body weight 2022-04-07 16:39:00 86.183 kg Universi ty of [facility] BMI 2022-04-07 16:39:00 30.67 kg/m2 Universi ty of [facility] Systolic blood 2022-02-02 15:24:00 133 mm[Hg] Univer sity of pressure [facility] [place] [facility] Diastolic blood 2022-02-02 15:24:00 82 mm[Hg] Unive rsity of pressure [facility] Heart rate 2022-02-02 15:24:00 82 /min [facility]i ty of [place] [facility] Body height 2022-02-02 15:24:00 167.6 cm Universi ty [facility] [place] [facility] Body weight 2022-02-02 15:24:00 83.008 kg Universi ty [facility] [place] [facility] BMI 2022-02-02 15:24:00 29.54 kg/m2 Universi ty of [facility] Systolic blood 2022-01-03 15:07:00 129 mm[Hg] Univer sity of pressure [place] [facility] Diastolic blood 2022-01-03 15:07:00 82 mm[Hg] Unive rsity of pressure [place] [facility] Heart rate 2022-01-03 15:07:00 76 /min Universi ty of [place] [facility] Body temperature 2022-01-03 15:07:00 36.83 Nita Univ ersity of [facility] Body height 2022-01-03 15:07:00 167.6 cm [facility]i ty of [place] [facility] [place] Body weight 2022-01-03 15:07:00 83.462 kg Universi ty [facility] [place] [facility] BMI 2022-01-03 15:07:00 29.70 kg/m2 [facility]i ty [facility] [place] [facility] Systolic blood 2021-12-08 15:22:00 144 mm[Hg] Univer sity of pressure [place] [facility] Diastolic blood 2021-12-08 15:22:00 84 mm[Hg] Unive rsity of pressure [place] [facility] Heart rate 2021-12-08 15:18:00 70 /min [facility]i ty [facility] [place] [facility] Body height 2021-12-08 15:18:00 167.6 cm [facility]i ty [facility] [place] [facility] Body weight 2021-12-08 15:18:00 83.326 kg [facility]i ty [facility] [place] [facility] BMI 2021-12-08 15:18:00 29.65 kg/m2 Universi ty of [facility] Oxygen saturation in 2021-12-08 15:18:00 100 /min [facility] Arterial blood by [facility] Pulse oximetry Branch Systolic blood 2021-12-02 16:05:00 130 mm[Hg] Univer sity of pressure [place] [facility] Diastolic blood 2021-12-02 16:05:00 78 mm[Hg] Unive rsity of pressure [facility] Heart rate 2021-12-02 16:05:00 61 /min [facility]i ty [facility] [place] [facility] Body temperature 2021-12-02 16:05:00 37.22 Nita Univ ersity of [place] [facility] Body height 2021-12-02 16:05:00 167.6 cm [facility]i ty [facility] [place] [facility] Body weight 2021-12-02 16:05:00 84.369 kg [facility]i ty [facility] [place] [facility] BMI 2021-12-02 16:05:00 30.02 kg/m2 [facility] [place] [facility] Systolic blood 2021-11-02 14:34:00 133 mm[Hg] Univer sity of pressure [place] [facility] Diastolic blood 2021-11-02 14:34:00 79 mm[Hg] Unive rsity of pressure [place] [facility] Heart rate 2021-11-02 14:34:00 80 /min [facility]i ty [facility] [place] [facility] Body height 2021-11-02 14:34:00 167.6 cm [facility] [place] [facility] Body weight 2021-11-02 14:34:00 84.823 kg [facility]i ty [facility] [place] [facility] BMI 2021-11-02 14:34:00 30.18 kg/m2 [facility] [place] [facility] Systolic blood 2021-10-05 19:18:00 152 mm[Hg] Univer sity of pressure [place] [facility] Diastolic blood 2021-10-05 19:18:00 87 mm[Hg] Unive rsity of pressure [place] [facility] Heart rate 2021-10-05 19:18:00 83 /min [facility]i ty [facility] [place] [facility] Body temperature 2021-10-05 19:18:00 37.33 Nita Univ [facility] Body height 2021-10-05 19:18:00 167.6 cm [facility] Body weight 2021-10-05 19:18:00 86.637 kg [facility] BMI 2021-10-05 19:18:00 30.83 kg/m2 [facility] Oxygen saturation in 2021-10-05 19:18:00 99 /min University Arterial blood by [facility] Pulse oximetry Branch Heart rate 2022-06-23 15:28:08 91 /min [facility] Respiratory rate 2022-06-23 15:28:08 18 /min [facility] Oxygen saturation in 2022-06-23 15:28:08 100 /min [facility] Arterial blood by Medical Ce nter Pulse oximetry Body temperature 2022-06-23 15:28:04 36.89 Nita [facility] Systolic blood 2022-06-23 15:27:00 144 mm[Hg] [facility] Diastolic blood 2022-06-23 15:27:00 79 mm[Hg] [facility] Body height 2022-06-21 11:16:[address] [facility] Body weight 2022-06-21 11:16:[address] [facility] BMI 2022-06-21 11:16:00 31.02 kg/m2 [facility] Initial DRG Weight: 2020-02-15 05:04:52 0.8372 [...] Temperature 2020-02-15 05:04:52 36.6\\S\\97.9 Weight 2020-02-15 05:04:52 65185\\S\\2627.91 Weight Measurement 2020-02-15 05:04:52 Built in Bedscale [...] Temperature 2020-02-10 08:28:02 36.6\\S\\97.9 Weight 2020-02-10 08:28:02 49729\\S\\2627.91 Weight Measurement 2020-02-10 08:28:02 Built in Bedscale [...] Temperature 2020-02-06 14:55:36 36.6\\S\\97.9 Weight 2020-02-06 14:55:36 56871\\S\\2627.91 Weight Measurement 2020-02-06 14:55:36 Built in Bedscale [...] Temperature 2020-02-06 12:25:52 36.7\\S\\98.1 Weight 2020-02-06 12:25:52 88012\\S\\2627.91 Weight Measurement 2020-02-06 12:25:52 Built in Bedscale [...] Temperature 2020-02-04 14:40:56 36.3\\S\\97.3 Weight 2020-02-04 14:40:56 74000\\S\\2627.91 Weight Measurement 2020-02-04 14:40:56 Built in Bedscale [...] Temperature 2020-02-04 12:53:01 36.3\\S\\97.3 Weight 2020-02-04 12:53:01 42602\\S\\2627.91 Weight Measurement 2020-02-04 12:53:01 Built in Bedscale [...] Temperature 2020-02-04 10:07:56 36.7\\S\\98.1 Weight 2020-02-04 10:07:56 07081\\S\\2627.91 Weight Measurement 2020-02-04 10:07:56 Built in Bedscale [...] Temperature 2020-02-04 06:31:28 36.7\\S\\98.1 Weight 2020-02-04 06:31:28 84679\\S\\2627.91 Weight Measurement 2020-02-04 06:31:28 Built in Bedscale [...] Temperature 2020-02-03 15:40:21 37.1\\S\\98.8 Weight 2020-02-03 15:40:21 18379\\S\\2627.91 Weight Measurement 2020-02-03 15:40:21 Built in Bedscale [...] Temperature 2020-02-03 13:59:33 37.1\\S\\98.8 Weight 2020-02-03 13:59:33 50897\\S\\2627.91 Weight Measurement 2020-02-03 13:59:33 Built in Bedscale [...] Temperature 2020-02-03 13:57:29 37.1\\S\\98.8 Weight 2020-02-03 13:57:29 13936\\S\\2627.91 Weight Measurement 2020-02-03 13:57:29 Built in Bedscale Method WEIGHT 2020-02-03 05:44:00 74.5 kg HEIGHT 2020-02-03 05:00:00 167.64 cm Respitory Rate 2014-07-22 20:45:00 [facility]ori [facility] Heart Rate 2014-07-22 20:45:00 [facility] Systolic (mm Hg) 2014-07-22 20:45:00 Jack rial [facility] Diastolic (mm Hg) 2014-07-22 20:45:00 Mem orial [facility] Height 2014-07-22 17:53:00 167.64 cm [facility] Weight 2014-07-22 17:53:00 [facility] BMI Calculated 2014-07-22 17:53:00 [facility] [place] Respitory Rate 2014-07-22 17:53:00 [facility] [place] Temperature Oral (F) 2014-07-22 17:53:00 97.9 F [facility] Heart Rate 2014-07-22 17:53:00 [facility] Systolic (mm Hg) 2014-07-22 17:53:00 Jack [facility] [place] Diastolic (mm Hg) 2014-07-22 17:53:00 Mem orial [facility] Procedures Procedure Date / Time Performing Clinician Source Performed COMP. METABOLIC PANEL 2022-07-11 10:41:00 Ángel Murray [facility] ([id number]) [facility] Branch CBC WITH DIFF 2022-07-11 10:41:00 Ángel Murray [facility] POCT GLUCOSE (AUTOMATED) 2022-07-11 09:26:00 Doctor Unassigned, [facility] CONSENT/REFUSAL FOR 2022-07-11 04:57:15 Doctor Unassigned, [facility] DIAGNOSIS AND TREATMENT [facility] [place] CONSENT/REFUSAL FOR 2022-07-08 18:20:06 [facility] DIAGNOSIS AND TREATMENT [facility] URINALYSIS 2022-07-05 13:22:00 Hilda Miller [facility] XR TIBIA FIBULA 2 VW 2022-07-05 13:16:57 Hilda Miller [facility] Branch COMP. METABOLIC PANEL 2022-07-05 12:59:00 Hilda Miller [facility] ([id number]) [facility] US LOWER EXTREMITY VEIN 2022-07-05 12:47:00 Hilda Miller [facility] WITH COMPRESSION [facility] (ONLY FOR RULE OUT DVT) TROPONIN I 2022-07-05 11:49:00 Hilda Miller [facility] CBC WITH DIFF 2022-07-05 11:49:00 Hilda Miller [facility] N-TERMINAL PRO-BNP 2022-07-05 11:49:00 Hilda Miller [facility] US RENAL COMPLETE 2022-06-23 16:47:00 Kendra [facility] CBC W/PLT COUNT & AUTO 2022-06-23 05:27:00 [facility] DIFFERENTIAL [place] CBC W/PLT COUNT & AUTO 2022-06-23 05:27:00 [facility] DIFFERENTIAL Center US ABDOMEN LIMITED 2022-06-22 16:17:00 Olga Abraham [facility] BASIC METABOLIC PANEL 2022-06-22 03:48:00 Olga Abraham [facility] MAGNESIUM 2022-06-22 03:48:00 Olga Abraham [facility] HEPATIC FUNCTION PANEL 2022-06-22 03:48:00 Olga Abraham [facility] CBC W/PLT COUNT & AUTO 2022-06-22 03:48:00 Olga Abraham [facility] PROTEIN ELECTROPHORESIS, 2022-06-22 03:48:00 [facility] [place] IRON, TIBC, % SAT. 2022-06-22 03:48:00 [facility] Center VITAMIN B12 2022-06-22 03:48:00 [facility] FERRITIN 2022-06-22 03:48:00 [facility] HEPARIN ANTIBODY 2022-06-22 03:48:00 Fabienne [facility] LACTATE DEHYDROGENASE 2022-06-22 03:48:00 [facility] HAPTOGLOBIN 2022-06-22 03:48:00 [facility] RETICULOCYTE COUNT 2022-06-22 03:48:00 [facility] [place] SERUM IMMUNOTYPING 2022-06-22 03:48:00 Fabienne [facility] SEROTONIN RELEASE ASSAY 2022-06-22 03:48:00 Fabienne [facility] CBC W/PLT COUNT & AUTO 2022-06-22 03:48:00 Fabienne [facility] URINE PROTEIN 2022-06-21 16:38:00 Fabienne [facility] ELECTROPHORESIS, RANDOM Center SARS-COV2/RT-PCR ([facility] & 2022-06-21 11:14:00 Fabienne [facility] REF LABS) Center COMPREHENSIVE METABOLIC 2022-06-21 11:12:00 Fabienne [facility] PANEL Center PROTHROMBIN TIME/INR 2022-06-21 11:12:00 Fabienne [facility] CBC W/PLT COUNT & AUTO 2022-06-21 11:12:00 Fabienne [facility] CBC W/PLT COUNT & AUTO 2022-06-21 11:12:00 Fabienne [facility] INSURANCE CORRESPONDENCE 2022-06-21 05:01:00 Doctor Unassigned, [facility] PHOSPHORUS 2022-06-07 09:16:00 [facility] MAGNESIUM 2022-06-07 09:16:00 [facility] BASIC METABOLIC PANEL 2022-06-07 09:16:00 [facility] (NA, K, CL, CO2, GLUCOSE, Faustino Medica l Branch BUN, CREATININE, CA) PHOSPHORUS 2022-06-05 11:13:00 Prajapati [facility] [place] MAGNESIUM 2022-06-05 11:13:00 Prajapati [facility] [place] BASIC METABOLIC PANEL 2022-06-05 11:13:00 Prajapati [facility] (NA, K, CL, CO2, GLUCOSE, Rod, Juanpablo Medica l Branch BUN, CREATININE, CA) [place] CBC WITH DIFF 2022-06-05 11:13:00 Prajapati [facility] [place] PHOSPHORUS 2022-06-05 11:13:00 Prajapati [facility] [place] MAGNESIUM 2022-06-05 11:13:00 [facility] [place] BASIC METABOLIC PANEL 2022-06-05 11:13:00 Prajapati [facility] (NA, K, CL, CO2, GLUCOSE, Rod, [facility] BUN, CREATININE, CA) [place] CBC WITH DIFF 2022-06-05 11:13:00 Prajapati [facility] [place] CT THORAX W CONTRAST 2022-06-05 01:36:13 Shimon Nathan [facility] CT THORAX W CONTRAST 2022-06-05 01:36:13 Shimon Nathan [facility] ACTIVATED PARTIAL 2022-06-04 18:00:00 Dannie [facility] ACTIVATED PARTIAL 2022-06-04 18:00:00 Dannie [facility] ACTIVATED PARTIAL 2022-06-04 14:21:[address] [facility] ACTIVATED PARTIAL 2022-06-04 14:21:[address] [facility] XR KUB 2022-06-04 09:32:00 Dannie, [facility] XR KUB 2022-06-04 09:32:00 Dannie, [facility] XR KUB 2022-06-04 06:45:00 Dannie, [facility] XR KUB 2022-06-04 06:45:00 Dannie [facility] HIT - AB 2022-06-04 06:14:00 Dannie [facility] EXTRA SST HOLD FOR ARUP 2022-06-04 06:14:00 Dannie [facility] HIT - AB 2022-06-04 06:14:00 Dannie [facility] EXTRA SST HOLD FOR TXUP 2022-06-04 06:14:00 Dannie [facility] XR CHEST 1 VW 2022-06-04 05:23:00 Dannie [facility] XR CHEST 1 VW 2022-06-04 05:23:00 Dannie [facility] TROPONIN I 2022-06-04 04:51:00 Dannie [facility] HEPATIC FUNCTION PANEL 2022-06-04 04:51:00 Dannie Armando [facility] ([id number]) (ALB,T.PRO,BILI Medical Branch T,BU/BC,ALT,AST,ALK PHOS) BASIC METABOLIC PANEL 2022-06-04 04:51:00 Armando Pandey [facility] (NA, K, CL, CO2, GLUCOSE, Medica l Branch BUN, CREATININE, CA) CBC WITH DIFF 2022-06-04 04:51:00 Dannie [facility] ACTIVATED PARTIAL 2022-06-04 04:51:00 Andreea [facility] TROPONIN I 2022-06-04 04:51:00 Armando Pandey [facility] HEPATIC FUNCTION PANEL 2022-06-04 04:51:00 Armando Pandey [facility] ([id number]) (ALB,T.PRO,BILI Medical Branch T,BU/BC,ALT,AST,ALK PHOS) BASIC METABOLIC PANEL 2022-06-04 04:51:00 [facility] (NA, K, CL, CO2, GLUCOSE, Medica l Branch BUN, CREATININE, CA) CBC WITH DIFF 2022-06-04 04:51:00 Armando Pandey [facility] ACTIVATED PARTIAL 2022-06-04 04:51:00 Andreea [facility] HB ECG ROUTINE & RHYTHM 2022-06-04 04:43:15 Armando Pandey [facility] HB ECG ROUTINE & RHYTHM 2022-06-04 04:43:15 Armando Pandey [facility] ACTIVATED PARTIAL 2022-06-03 20:52:[address] [facility] ACTIVATED PARTIAL 2022-06-03 20:52:[address] [facility] FL TIME OR 2022-06-03 17:21:00 Alo [facility] (NON-REPORTABLE) [facility] Jose Antonio FL TIME OR 2022-06-03 17:21:00 [facility] (NON-REPORTABLE) Rod [facility] [place] ABG+COOX+NA+K+GLU+CA2+ 2022-06-03 16:52:00 [facility] ABG+COOX+NA+K+GLU+CA2+ 2022-06-03 16:52:00 Allan Lynch [facility] SURGICAL PATHOLOGY EXAM 2022-06-03 15:42:00 Peterson, Lawrence Univ [facility] ABG+COOX+NA+K+GLU+CA2+ 2022-06-03 15:36:00 Allan Lynch [facility] ABG+COOX+NA+K+GLU+CA2+ 2022-06-03 15:36:00 Allan Lynch [facility] HB ABO GROUPING 2022-06-03 13:05:00 Vishnu Zapien [facility] HB ABO GROUPING 2022-06-03 13:05:00 Vishnu Zapien [facility] INFERIOR VENA CAVA FILTER 2022-06-03 12:00:00 [facility] 2022-06-03 12:00:00 Lawrence Peterson [facility] ANGIOPLASTY 2022-06-03 12:00:00 Lawrence Peterson [facility] VASCULAR STENTING 2022-06-03 12:00:00 Lawrence Peterson [facility] INFERIOR VENA CAVA FILTER 2022-06-03 12:00:00 Lawrence Peterson [facility] VENOUS THROMBECTOMY 2022-06-03 12:00:00 Lawrence Peterson [facility] ANGIOPLASTY 2022-06-03 12:00:00 Lawrence Peterson [facility] VASCULAR STENTING 2022-06-03 12:00:00 Lawrence Peterson [facility] PHOSPHORUS 2022-06-03 10:34:00 [facility] [place] MAGNESIUM 2022-06-03 10:34:00 [facility] [place] BASIC METABOLIC PANEL 2022-06-03 10:34:00 Prajapatiricardo denny [facility] (NA, K, CL, CO2, GLUCOSE, Rod, [facility] BUN, CREATININE, CA) [place] CBC WITH DIFF 2022-06-03 10:34:00 Prajapati [facility] [place] ACTIVATED PARTIAL 2022-06-03 10:34:00 Verona, [facility] PHOSPHORUS 2022-06-03 10:34:00 Prajapati [facility] [place] MAGNESIUM 2022-06-03 10:34:00 Prajapati [facility] [place] BASIC METABOLIC PANEL 2022-06-03 10:34:00 Prajapati [facility] (NA, K, CL, CO2, GLUCOSE, Rod, [facility] BUN, CREATININE, CA) [place] CBC WITH DIFF 2022-06-03 10:34:00 [facility] [place] ACTIVATED PARTIAL 2022-06-03 10:34:00 Andreea [facility] ACTIVATED PARTIAL 2022-06-02 22:26:00 [facility] ACTIVATED PARTIAL 2022-06-02 22:26:[address] [facility] ACTIVATED PARTIAL 2022-06-02 15:46:00 Andreea [facility] ACTIVATED PARTIAL 2022-06-02 15:46:00 Andreea [facility] PHOSPHORUS 2022-06-02 10:27:00 [facility] [place] MAGNESIUM 2022-06-02 10:27:00 [facility] [place] BASIC METABOLIC PANEL 2022-06-02 10:27:00 Prajapati [facility] (NA, K, CL, CO2, GLUCOSE, Rod, [facility] BUN, CREATININE, CA) Jose [place] CBC WITH DIFF 2022-06-02 10:27:00 [facility] [place] PHOSPHORUS 2022-06-02 10:27:00 Prajapati [facility] Jose Antonio MAGNESIUM 2022-06-02 10:27:00 Prajapati [facility] [place] BASIC METABOLIC PANEL 2022-06-02 10:27:00 Prajapati [facility] (NA, K, CL, CO2, GLUCOSE, Rod, [facility] BUN, CREATININE, CA) [place] CBC WITH DIFF 2022-06-02 10:27:00 [facility] [place] PHOSPHORUS 2022-06-01 10:05:00 Prajapati [facility] [place] Antonio MAGNESIUM 2022-06-01 10:05:00 Prajapati [facility] [place] BASIC METABOLIC PANEL 2022-06-01 10:05:00 Prajapati [facility] (NA, K, CL, CO2, GLUCOSE, Rod, [facility] BUN, CREATININE, CA) Jose [place] CBC WITH DIFF 2022-06-01 10:05:00 [facility] Joes Antonio PHOSPHORUS 2022-06-01 10:05:00 [facility] [place] MAGNESIUM 2022-06-01 10:05:00 [facility] [place] BASIC METABOLIC PANEL 2022-06-01 10:05:00 Prajapati [facility] (NA, K, CL, CO2, GLUCOSE, Rod, [facility] BUN, CREATININE, CA) Jose [place] CBC WITH DIFF 2022-06-01 10:05:00 [facility] [place] PHOSPHORUS 2022-05-31 11:01:00 [facility] [place] MAGNESIUM 2022-05-31 11:01:00 Prajapati [facility] [place] BASIC METABOLIC PANEL 2022-05-31 11:01:00 [facility] (NA, K, CL, CO2, GLUCOSE, Rod, [facility] BUN, CREATININE, CA) [place] CBC WITH DIFF 2022-05-31 11:01:00 [facility] [place] PROTHROMBIN TIME / INR 2022-05-31 11:01:00 Maurice Gutierrez [facility] ACTIVATED PARTIAL 2022-05-31 11:01:00 Juanpablo Salmon [facility] FIBRINOGEN 2022-05-31 11:01:00 Ryley Polo [facility] PHOSPHORUS 2022-05-31 11:01:00 [facility] [place] MAGNESIUM 2022-05-31 11:01:00 [facility] [place] BASIC METABOLIC PANEL 2022-05-31 11:01:00 [facility] (NA, K, CL, CO2, GLUCOSE, Rod, [place] [facility] BUN, CREATININE, CA) Jose [place] CBC WITH DIFF 2022-05-31 11:01:00 [facility] [place] PROTHROMBIN TIME / INR 2022-05-31 11:01:00 Maurice Gutierrez [facility] ACTIVATED PARTIAL 2022-05-31 11:01:00 Juanpablo Salmon [facility] FIBRINOGEN 2022-05-31 11:01:00 Ryley Polo [facility] PHOSPHORUS 2022-05-31 11:01:00 [facility] [place] Antonio MAGNESIUM 2022-05-31 11:01:00 [facility] [place] BASIC METABOLIC PANEL 2022-05-31 11:01:00 Prajapati de [facility] [address] (NA, K, CL, CO2, GLUCOSE, Rod, [facility] BUN, CREATININE, CA) Jose [place] CBC WITH DIFF 2022-05-31 11:01:00 Alo [facility] [place] PROTHROMBIN TIME / INR 2022-05-31 11:01:00 Juanpablo Salmon [facility] ACTIVATED PARTIAL 2022-05-31 11:01:00 Juanpablo Salmon [facility] THRLAS [facility] FIBRINOGEN 2022-05-31 11:01:00 Christ [facility] [place] TIME OR 2022-05-31 04:56:00 [facility] (NON-REPORTABLE) [facility] [place] TIME OR 2022-05-31 04:56:00 [facility] (NON-REPORTABLE) [facility] FL TIME OR 2022-05-31 04:56:00 [facility] (NON-REPORTABLE) [facility] FIBRINOGEN 2022-05-31 01:26:00 [facility] FIBRINOGEN 2022-05-31 01:26:00 [facility] FIBRINOGEN 2022-05-31 01:26:00 [facility] VENOGRAM 2022-05-31 01:17:00 Cris, [facility] VENOGRAM 2022-05-31 01:17:00 Cris [facility] FIBRINOGEN 2022-05-30 21:47:00 [facility] FIBRINOGEN 2022-05-30 21:47:00 [facility] FIBRINOGEN 2022-05-30 21:47:00 [facility] FIBRINOGEN 2022-05-30 18:14:00 [facility] FIBRINOGEN 2022-05-30 18:14:00 [facility] FIBRINOGEN 2022-05-30 18:14:00 [facility] FIBRINOGEN 2022-05-30 18:14:00 [facility] FIBRINOGEN 2022-05-30 15:21:00 [facility] FIBRINOGEN 2022-05-30 15:21:00 [facility] FIBRINOGEN 2022-05-30 15:21:00 [facility] FIBRINOGEN 2022-05-30 15:21:00 Christ [facility] FIBRINOGEN 2022-05-30 13:12:00 Christ [facility] FIBRINOGEN 2022-05-30 13:12:00 Christ [facility] FIBRINOGEN 2022-05-30 13:12:00 Christ [facility] FIBRINOGEN 2022-05-30 13:12:00 [facility] FIBRINOGEN 2022-05-30 11:13:00 [facility] FIBRINOGEN 2022-05-30 11:13:00 [facility] FIBRINOGEN 2022-05-30 11:13:00 [facility] FIBRINOGEN 2022-05-30 11:13:00 [facility] PHOSPHORUS 2022-05-30 09:27:00 [facility] MAGNESIUM 2022-05-30 09:27:00 [facility] BASIC METABOLIC PANEL 2022-05-30 09:27:00 Ryley Polo [facility] (NA, K, CL, CO2, GLUCOSE, Medica l Branch BUN, CREATININE, CA) CBC WITH DIFF 2022-05-30 09:27:00 [facility] ACTIVATED PARTIAL 2022-05-30 09:27:00 [facility]22-05-30 09:27:00 [facility] PHOSPHORUS 2022-05-30 09:27:00 [facility] MAGNESIUM 2022-05-30 09:27:00 [facility] BASIC METABOLIC PANEL 2022-05-30 09:27:00 [facility] (NA, K, CL, CO2, GLUCOSE, Medica l Branch BUN, CREATININE, CA) CBC WITH DIFF 2022-05-30 09:27:00 [facility] ACTIVATED PARTIAL 2022-05-30 09:27:[address] [facility] FIBRINOGEN 2022-05-30 09:27:00 [facility] PHOSPHORUS 2022-05-30 09:27:00 [facility] MAGNESIUM 2022-05-30 09:27:00 Christ [facility] BASIC METABOLIC PANEL 2022-05-30 09:27:00 Christ [facility] (NA, K, CL, CO2, GLUCOSE, Medica l Branch BUN, CREATININE, CA) CBC WITH DIFF 2022-05-30 09:27:00 [facility] ACTIVATED PARTIAL 2022-05-30 09:27:00 [facility] 2022-05-30 09:27:00 [facility] PHOSPHORUS 2022-05-30 09:27:00 [facility] MAGNESIUM 2022-05-30 09:27:00 [facility] BASIC METABOLIC PANEL 2022-05-30 09:27:00 [facility] (NA, K, CL, CO2, GLUCOSE, Medica l Branch BUN, CREATININE, CA) CBC WITH DIFF 2022-05-30 09:27:00 [facility] ACTIVATED PARTIAL 2022-05-30 09:27:[address] [facility] FIBRINOGEN 2022-05-30 09:27:00 [facility] FIBRINOGEN 2022-05-30 06:58:00 [facility] FIBRINOGEN 2022-05-30 06:58:00 Tssheila [facility] FIBRINOGEN 2022-05-30 06:58:00 [facility] FIBRINOGEN 2022-05-30 06:58:00 [facility] ACTIVATED PARTIAL 2022-05-30 06:13:[address] [facility] ACTIVATED PARTIAL 2022-05-30 06:13:[address] [facility] ACTIVATED PARTIAL 2022-05-30 06:13:[address] [facility] ACTIVATED PARTIAL 2022-05-30 06:13:[address] [facility] FIBRINOGEN 2022-05-30 04:43:00 Cris [facility] FIBRINOGEN 2022-05-30 04:43:00 Cris [facility] FIBRINOGEN 2022-05-30 04:43:00 Cris [facility] FIBRINOGEN 2022-05-30 04:43:00 Cris [facility] FIBRINOGEN 2022-05-29 23:24:00 [facility] FIBRINOGEN 2022-05-29 23:24:00 [facility] FIBRINOGEN 2022-05-29 23:24:00 [facility] FIBRINOGEN 2022-05-29 23:24:00 Tsukagoshi, Junji [facility] FIBRINOGEN 2022-05-29 21:10:00 Cris [facility] FIBRINOGEN 2022-05-29 21:10:00 Cris [facility] FIBRINOGEN 2022-05-29 21:10:00 Cris [facility] FIBRINOGEN 2022-05-29 21:10:00 Cris [facility] BASIC METABOLIC PANEL 2022-05-29 14:55:00 Armando Pandey [facility] (NA, K, CL, CO2, GLUCOSE, Medica l Branch BUN, CREATININE, CA) CBC WITH DIFF 2022-05-29 14:55:00 [facility] 2022-05-29 14:55:00 Cris [facility] BASIC METABOLIC PANEL 2022-05-29 14:55:00 Dannie Armando [facility] (NA, K, CL, CO2, GLUCOSE, Medica l Branch BUN, CREATININE, CA) CBC WITH DIFF 2022-05-29 14:55:00 [facility] FIB[facility] 2022-05-29 14:55:00 Cris [facility] BASIC METABOLIC PANEL 2022-05-29 14:55:00 Armando Pandey [facility] (NA, K, CL, CO2, GLUCOSE, Medica l Branch BUN, CREATININE, CA) CBC WITH DIFF 2022-05-29 14:55:00 Armando Pandey [facility] FIBRINOGEN 2022-05-29 14:55:00 Cris [facility] BASIC METABOLIC PANEL 2022-05-29 14:55:00 Dannie Armando [facility] (NA, K, CL, CO2, GLUCOSE, Medica l Branch BUN, CREATININE, CA) CBC WITH DIFF 2022-05-29 14:55:00 [facility]EN 2022-05-29 14:55:00 Cris [facility] [place] TIME OR 2022-05-29 14:03:00 Jorge L De Leon [facility] (NON-REPORTABLE) [facility] [place] TIME OR 2022-05-29 14:03:00 [facility] (NON-REPORTABLE) [facility] [place] TIME OR 2022-05-29 14:03:00 [facility] (NON-REPORTABLE) [facility] [place] TIME OR 2022-05-29 14:03:00 [facility] (NON-REPORTABLE) [facility] VENOUS THROMBOLYSIS 2022-05-29 12:05:00 Cris [facility] VENOUS THROMBOLYSIS 2022-05-29 12:05:00 Cris [facility] MAGNESIUM 2022-05-29 11:11:00 Reyna [facility] BASIC METABOLIC PANEL 2022-05-29 11:11:00 [facility] ([facility], K, CL, CO2, GLUCOSE, Medica l Branch BUN, CREATININE, CA) CBC WITHOUT DIFF 2022-05-29 11:11:00 Reyna [facility] ACTIVATED PARTIAL 2022-05-29 11:11:00 [facility]UM 2022-05-29 11:11:00 Reyna [facility] BASIC METABOLIC PANEL 2022-05-29 11:11:00 Amber Orellana [facility] (NA, K, CL, CO2, GLUCOSE, Medica l Branch BUN, CREATININE, CA) CBC WITHOUT DIFF 2022-05-29 11:11:00 [facility] 2022-05-29 11:11:00 [facility]UM 2022-05-29 11:11:00 Reyna [facility] BASIC METABOLIC PANEL 2022-05-29 11:11:00 Amber Orellana [facility] (NA, K, CL, CO2, GLUCOSE, Medica l Branch BUN, CREATININE, CA) CBC WITHOUT DIFF 2022-05-29 11:11:00 Orellana, [facility] ACTIVATED PARTIAL 2022-05-29 11:11:00 [facility]UM 2022-05-29 11:11:00 Reyna [facility] BASIC METABOLIC PANEL 2022-05-29 11:11:00 Amber Orellana [facility] (NA, K, CL, CO2, GLUCOSE, Medica l Branch BUN, CREATININE, CA) CBC WITHOUT DIFF 2022-05-29 11:11:00 [facility] 2022-05-29 11:11:00 [facility] ABORH CONFIRMATION (LAB 2022-05-28 23:34:00 Val [facility] Medical Branch ABORH CONFIRMATION (LAB 2022-05-28 23:34:00 Val [facility] Medical Branch ABORH CONFIRMATION (LAB 2022-05-28 23:34:00 Val [facility] Medical Branch ABORH CONFIRMATION (LAB 2022-05-28 23:34:00 Val [facility] Medical Branch HB ABO GROUPING 2022-05-28 23:00:00 [facility] HB ABO GROUPING 2022-05-28 23:00:00 [facility] HB ABO GROUPING 2022-05-28 23:00:00 [facility] HB ABO GROUPING 2022-05-28 23:00:00 [facility] ACTIVATED PARTIAL 2022-05-28 22:59:00 [facility] ACTIVATED PARTIAL 2022-05-28 22:59:00 Reyna [facility] ACTIVATED PARTIAL 2022-05-28 22:59:00 Reyna [facility] ACTIVATED PARTIAL 2022-05-28 22:59:00 Reyna [facility] PROTHROMBIN TIME / INR 2022-05-28 17:23:00 Amber Orellana [facility] ACTIVATED PARTIAL 2022-05-28 17:23:00 [facility] PROTHROMBIN TIME / INR 2022-05-28 17:23:00 Amber Orellanae [facility] ACTIVATED PARTIAL 2022-05-28 17:23:00 [facility] PROTHROMBIN TIME / INR 2022-05-28 17:23:00 Amber Orellanae [facility] ACTIVATED PARTIAL 2022-05-28 17:23:00 [facility] PROTHROMBIN TIME / INR 2022-05-28 17:23:00 Amber Orellana [facility] ACTIVATED PARTIAL 2022-05-28 17:23:00 [facility] BASIC METABOLIC PANEL 2022-05-28 09:09:00 Idalia [facility] (NA, K, CL, CO2, GLUCOSE, Medica l Branch BUN, CREATININE, CA) CBC WITH DIFF 2022-05-28 09:09:00 [facility] FACTOR 5 LEIDEN 2022-05-28 09:09:00 [facility] 2 [id number] MUTATION 2022-05-28 09:09:00 [facility] [place] [facility] F5 LEIDEN AND F2 [id number] 2022-05-28 09:09:00 Liseth Vitale [facility] BASIC METABOLIC PANEL 2022-05-28 09:09:00 [facility]ileep [facility] (NA, K, CL, CO2, GLUCOSE, Medica l Branch BUN, CREATININE, CA) CBC WITH DIFF 2022-05-28 09:09:00 [facility] FACTOR 5 LEIDEN 2022-05-28 09:09:00 [facility] FACTOR 2 [id number] MUTATION 2022-05-28 09:09:00 Liseth Vitale [facility] F5 LEIDEN AND F2 [id number] 2022-05-28 09:09:00 Liseth Vitale [facility] BASIC METABOLIC PANEL 2022-05-28 09:09:00 Romario Friedman [facility] (NA, K, CL, CO2, GLUCOSE, Medica l Branch BUN, CREATININE, CA) CBC WITH DIFF 2022-05-28 09:09:00 Romario Friedman [facility] FACTOR 5 LEIDEN 2022-05-28 09:09:00 Winifred [facility] FACTOR 2 [id number] MUTATION 2022-05-28 09:09:00 Liseth Vitale [facility] F5 LEIDEN AND F2 [id number] 2022-05-28 09:09:00 Liseth Vitale [facility] BASIC METABOLIC PANEL 2022-05-28 09:09:00 Romario Friedman [facility] (NA, K, CL, CO2, GLUCOSE, Medica l Branch BUN, CREATININE, CA) CBC WITH DIFF 2022-05-28 09:09:00 Romario Friedman [facility] FACTOR 5 LEIDEN 2022-05-28 09:09:00 Winifred [facility] FACTOR 2 [id number] MUTATION 2022-05-28 09:09:00 Liseth Vitale [facility] F5 LEIDEN AND F2 [id number] 2022-05-28 09:09:00 Liseth Vitale [facility] TRANSTHORACIC ECHO (TTE) 2022-05-27 15:47:00 Romario Friedman [facility] W/ CONTRAST Medical [facility] TRANSTHORACIC ECHO (TTE) 2022-05-27 15:47:00 Romario Friedman [facility] W/ CONTRAST [facility] TRANSTHORACIC ECHO (TTE) 2022-05-27 15:47:00 Romario [facility] [place] COMPLETE W/ CONTRAST [facility] TRANSTHORACIC ECHO (TTE) 2022-05-27 15:47:00 Romario Friedman [facility] COMPLETE W/ CONTRAST [facility] CT ABDOMEN PELVIS W 2022-05-27 11:28:06 Edionwe, [facility] CONTRAST Medical Branch CT ABDOMEN PELVIS W 2022-05-27 11:28:06 Edionwe, [facility] CONTRAST Medical Branch CT ABDOMEN PELVIS W 2022-05-27 11:28:06 Edionwe, [facility] CONTRAST Medical Branch CT ABDOMEN PELVIS W 2022-05-27 11:28:06 Edionwe, [facility] CONTRAST Medical Branch BASIC METABOLIC PANEL 2022-05-27 09:45:00 [facility] ([facility], K, CL, CO2, GLUCOSE, Medica l Branch BUN, CREATININE, CA) CBC WITH DIFF 2022-05-27 09:45:[address] [facility] GLYCOSYLATED HEMOGLOBIN 2022-05-27 09:45:00 [facility] [place] BASIC METABOLIC PANEL 2022-05-27 09:45:00 [facility] (NA, K, CL, CO2, GLUCOSE, Medica l Branch BUN, CREATININE, CA) CBC WITH DIFF 2022-05-27 09:45:00 [facility] GLYCOSYLATED HEMOGLOBIN 2022-05-27 09:45:00 Winifred [facility] ([facility]) Medical [place] BASIC METABOLIC PANEL 2022-05-27 09:45:00 [facility] (NA, K, CL, CO2, GLUCOSE, Medica l Branch BUN, CREATININE, CA) CBC WITH DIFF 2022-05-27 09:45:00 [facility] GLYCOSYLATED HEMOGLOBIN 2022-05-27 09:45:00 [facility] (A[facility] Medical [place] BASIC METABOLIC PANEL 2022-05-27 09:45:00 [facility] (NA, K, CL, CO2, GLUCOSE, Medica l Branch BUN, CREATININE, CA) CBC WITH DIFF 2022-05-27 09:45:00 Ondina Yusuf [facility] GLYCOSYLATED HEMOGLOBIN 2022-05-27 09:45:00 Liseth Vitale [facility] (A1C) Medical Branch DUPLEX VENOUS LEGS 2022-05-27 01:08:52 Meche Zapata Mem[facility] BILATERAL - BY VASCULAR Medical [place] LAB DUPLEX VENOUS LEGS 2022-05-27 01:08:52 Meche Zapata Meme [facility] BILATERAL - BY VASCULAR [facility] LAB DUPLEX VENOUS LEGS 2022-05-27 01:08:52 Meche Zapata Meme [facility] BILATERAL - BY VASCULAR [facility] LAB DUPLEX VENOUS LEGS 2022-05-27 01:08:52 Meche Zapata [facility] BILATERAL - BY VASCULAR [facility] LAB URINE DRUG (IMMUNOASSAY) 2022-05-26 22:13:00 Ondina Yusuf [facility] SCREEN URINALYSIS 2022-05-26 22:13:00 Jodi [facility] URINE DRUG (IMMUNOASSAY) 2022-05-26 22:13:00 Ondina Yusuf [facility] SCREEN URINALYSIS 2022-05-26 22:13:00 Jodi, K [facility] URINE DRUG (IMMUNOASSAY) 2022-05-26 22:13:00 Ondina Yusuf [facility] SCREEN URINALYSIS 2022-05-26 22:13:00 Meche Zapata [facility] URINE DRUG (IMMUNOASSAY) 2022-05-26 22:13:00 Ondina Yusuf [facility] SCREEN URINALYSIS 2022-05-26 22:13:00 Meche Zapata [facility] HB ECG ROUTINE & RHYTHM 2022-05-26 21:43:55 Meche Zapata Meme [facility] Medical Branch HB ECG ROUTINE & RHYTHM 2022-05-26 21:43:55 JodiMeche [facility] HB ECG ROUTINE & RHYTHM 2022-05-26 21:43:55 Meche Zapata [facility] HB ECG ROUTINE & RHYTHM 2022-05-26 21:43:55 Meche Zapata [facility] XR CHEST 1 2022-05-26 21:37:08 Meche Zapata [facility] XR CHEST 1 2022-05-26 21:37:08 Meche Zapata [facility] XR CHEST 1 2022-05-26 21:37:08 Meche Zapata [facility] XR CHEST 1 2022-05-26 21:37:08 Meche Zapata [facility] MAGNESIUM 2022-05-26 21:20:00 Meche Zapata [facility] TROPONIN I 2022-05-26 21:20:00 Meche Zapata [facility] COMP. METABOLIC PANEL 2022-05-26 21:20:00 Meche Zapata [facility] ([id number]) [facility] CBC WITH DIFF 2022-05-26 21:20:00 Meche Zapata [facility] N-TERMINAL PRO-BNP 2022-05-26 21:20:00 [facility] MAGNESIUM 2022-05-26 21:20:00 Meche Zapata [facility] TROPONIN I 2022-05-26 21:20:00 Meche Zapata [facility] COMP. METABOLIC PANEL 2022-05-26 21:20:00 Meche Zapata [facility] ([id number]) [facility] CBC WITH DIFF 2022-05-26 21:20:00 Meche Zapata [facility] N-TERMINAL PRO-BNP 2022-05-26 21:20:00 Meche [facility] MAGNESIUM 2022-05-26 21:20:00 Meche Zapata [facility] TROPONIN I 2022-05-26 21:20:00 Meche Zapata [facility] COMP. METABOLIC PANEL 2022-05-26 21:20:00 Meche Zapata [facility] ([id number]) [facility] CBC WITH DIFF 2022-05-26 21:20:00 Meche Zapata [facility] N-TERMINAL PRO-BNP 2022-05-26 21:20:00 Meche [facility]ata [facility] MAGNESIUM 2022-05-26 21:20:00 Meche Zapata [facility] TROPONIN I 2022-05-26 21:20:00 Meche Zapata [facility] COMP. METABOLIC PANEL 2022-05-26 21:20:00 Meche Zapata [facility] ([id number]) [facility] CBC WITH DIFF 2022-05-26 21:20:00 Meche Zapata [facility] N-TERMINAL PRO-BNP 2022-05-26 21:20:00 Meche [facility] HOSPITAL ADMISSION 2022-05-26 05:01:00 Doctor Unassigned, [facility] Name [facility] HOSPITAL ADMISSION 2022-05-26 05:01:00 Doctor Unamindaigned, [facility] HOSPITAL ADMISSION 2022-05-26 05:01:00 Doctor Unasari, [facility] XR LUMBAR SPINE 3 VW 2022-05-23 09:47:55 Carlos Corbin [facility] DISCLOSURE AND CONSENT, 2022-05-19 05:01:00 Doctor Unassagnes, U [facility] MEDICAL AND SURGICAL [facility] PROCEDURES PATIENT QUESTIONNAIRE 2022-05-17 05:01:00 Doctor Sergo, [facility] Name [facility] [place] INSURANCE CORRESPONDENCE 2022-05-16 05:01:00 Doctor Tracyssigned, [facility] Name Medical [place] INSURANCE CORRESPONDENCE 2022-05-04 05:01:00 Doctor Eddieigned, [facility] Name [facility] DME/SUPPLY JUSTIFICATION 2022-04-22 06:01:00 Doctor Unassigned, [facility] PATIENT FINANCIAL 2022-04-13 15:27:54 Doctor Sergo, Un [facility] POLICY [facility] SLEEP STUDY DATA REPORT 2022-04-02 06:01:00 Doctor Sergo [facility] XR HIPS 2 VW RIGHT 2022-03-24 14:56:12 Susan Manjarrez [facility] Medical Branch MR LUMBAR SPINE WO 2022-03-24 14:41:33 Delroy Farah [facility] Medical Branch INSURANCE CORRESPONDENCE 2022-02-15 06:01:00 Doctor Sergo, [facility] EXTERNAL PROVIDER RECORDS 2022-02-03 06:01:00 Doctor Sergo, [facility] REFERRAL- 2022-01-17 06:01:00 Doctor Sergo [facility] REQUEST/RESPONSE [facility] ASSIGNMENT OF BENEFITS 2021-12-08 15:11:38 Doctor Sergo [facility] SLEEP STUDY DATA REPORT 2021-11-04 05:01:00 Doctor Trotter [facility] Name Medical Branch Plan of Care Planned Activity Planned Date Details Comments Source Future Scheduled 2022-10-[address] [facility] Test 00:00:00 (Season Ended) [code = Medic al Center INFLUENZA VACCINE (Season Ended)] Future Scheduled 2022-10-[address] [facility] Test 00:00:00 (Season Ended) [code = Medic al Center INFLUENZA VACCINE (Season Ended)] Future Scheduled 2022-07-19 [facility] Test 13:32:24 malignant neoplasm of colon (procedure) [code = 757747875] Future Scheduled 2022-07-19 [facility] Test 13:32:24 malignant neoplasm of colon (procedure) [code = 566749887] Future Scheduled 2022-07-19 [facility] Test 13:32:24 malignant neoplasm of colon (procedure) [code = 875310151] Future Scheduled 2022-07-19 COVID-19 VACCINE (#1) [facility] Test 13:32:24 [code = COVID-19 VACCINE (#1)] Future Scheduled 2022-07-19 [facility] 13:32:24 (procedure) [code = 814397401] Future Scheduled 2022-07-19 [facility] Test 13:32:24 malignant neoplasm of colon (procedure) [code = 182610139] Future Scheduled 2022-07-19 [facility] Test 13:32:24 malignant neoplasm of colon (procedure) [code = 478799981] Future Scheduled 2022-07-19 SHINGLES VACCINES (1 [facility] 13:32:24 of 2) [code = SHINGLES VACCINES (1 of 2)] Future Scheduled 2022-07-19 INFLUENZA VACCINE [facility] Test 13:32:24 [code = INFLUENZA VACCINE] Future Scheduled 2022-07-19 [facility] Test 13:32:24 malignant neoplasm of colon (procedure) [code = 657733332] Future Scheduled 2022-07-19 [facility] Test 13:32:24 malignant neoplasm of colon (procedure) [code = 171617975] Future Scheduled 2022-07-19 [facility] Test 13:32:24 malignant neoplasm of colon (procedure) [code = 339169233] Future Scheduled 2022-07-19 COVID-19 VACCINE (#1) [facility] 13:32:24 [code = COVID-19 VACCINE (#1)] Future Scheduled 2022-07-19 [facility] Test 13:32:24 (procedure) [code = 393776673] Future Scheduled 2022-07-19 [facility] Test 13:32:24 malignant neoplasm of colon (procedure) [code = 305688522] Future Scheduled 2022-07-19 [facility] Test 13:32:24 malignant neoplasm of colon (procedure) [code = 659097050] Future Scheduled 2022-07-19 SHINGLES VACCINES (1 Met [...] [facility] Test 23:57:37 (procedure) [code = 481240525] Future Scheduled 2022-07-10 COLONOSCOPY SCREENING [facility] [...] [facility] Test 23:57:37 (procedure) [code = 091316579] Future Scheduled 2022-07-10 [facility] 23:57:37 [code = COLONOSCOPY SCREENING] [...] [facility]ist Hospital Test 23:57:37 (procedure) [code = 986231928] Future Scheduled 2022-07-10 [facility] Test 23:57:37 malignant neoplasm of colon (procedure) [code = 585770399] Future Scheduled 2022-07-10 SHINGLES VACCINES (1 Met [...] [facility] Test 23:24:31 (procedure) [code = 944563495] Future Scheduled 2022-07-03 COLONOSCOPY SCREENING [facility] Test 20:48:55 (procedure) [code = 738464782] Future Scheduled 2022-05-18 COLONOSCOPY SCREENING [facility] [...] [facility] Test 20:48:55 (procedure) [code = 704764525] Future Scheduled 2022-05-18 COLONOSCOPY SCREENING Me [facility]odist [...] Future Scheduled 2021-10-15 [facility] 19:26:49 (1 of 3 - 3-dose series) [code = HEPATITIS B VACCINES (1 of 3 - 3-dose series)] Future Scheduled 2021-10-15 COVID-19 VACCINE (#1) [facility] 19:26:49 [code = COVID-19 VACCINE (#1)] Future Scheduled 2021-10-15 [facility] 19:26:49 (procedure) [code = 465116267] Future Scheduled 2021-10-15 [facility]ENING [facility] 19:26:49 [code = COLONOSCOPY SCREENING] Future Scheduled 2021-10-15 SHINGLES VACCINES (1 [facility] 19:26:49 of 2) [code = SHINGLES VACCINES (1 of 2)] Future Scheduled 2021-10-15 INFLUENZA VACCINE [facility] Test 19:26:49 [code = INFLUENZA VACCINE] Future Scheduled 2021-10-12 HEPATITIS B [facility]ACCINES [facility] Test 17:47:43 (1 of 3 - 3-dose series) [code = HEPATITIS B VACCINES (1 of 3 - 3-dose series)] Future Scheduled 2021-10-12 COVID-19 VACCINE (#1) [facility] 17:47:43 [code = COVID-19 VACCINE (#1)] Future Scheduled 2021-10-12 [facility] 17:47:43 (procedure) [code = 760180313] Future Scheduled 2021-10-12 [facility]COPY [facility]ENING [facility] 17:47:43 [code = COLONOSCOPY SCREENING] Future Scheduled 2021-10-12 SHINGLES VACCINES (1 [facility] 17:47:43 of 2) [code = SHINGLES VACCINES (1 of 2)] Future Scheduled 2021-10-12 INFLUENZA VACCINE [facility] Test 17:47:43 [code = INFLUENZA VACCINE] [...] [facility] s Test 00:00:00 (procedure) [code = [facility] 31810494] Future Scheduled [address] [facility] 00:[facility]:00 (procedure) [code = [facility] 85780559] Future Scheduled 1981 DTAP/TDAP/TD VACCINES CH I [...] Medica l Center colon (procedure) [code = 310542974] Future Scheduled [address] [facility] 00:[facility]:00 malignant neoplasm of [facility] Center colon (procedure) [code = 556494564] Future Scheduled [address] [facility] 00:00:00 malignant neoplasm of [facility] Center colon (procedure) [code = 127273025] Future Scheduled [address] [facility] 00:00:00 malignant neoplasm of Medica l Center colon (procedure) [code = 746968415] Future Scheduled 1962 Sigmoidoscopy [facility]] Medical [facility] r Future Scheduled [address] [facility] Test 00:00:00 (combo) [code = CT Medical C enter Colonography (combo)] Future Scheduled [address] [facility] 00:00:00 malignant neoplasm of Medica l Center colon (procedure) [code = 066838824] Future Scheduled [address] [facility] 00:00:00 malignant neoplasm of Medica l Center colon (procedure) [code = 176420233] Future Scheduled [address] [facility] 00:00:00 malignant neoplasm of Medica l Center colon (procedure) [code = 496091481] Future Scheduled [address] [facility] Test 00:00:00 malignant neoplasm of Medica l Center colon (procedure) [code = 748311070] Future Scheduled 1962 Sigmoidoscopy [facility]] Medical John r Encounters Start End Encounter Admission Attending Care Care Encounter Source Date/Time Date/Time Type Type Clinicians Facility Department ID 2022-06-11 Outpatient 3 [id number] [place] [id number] [facility] 03:48:38 [facility] 2022-06-10 Outpatient 3 [id number] E[facility] PM [facility] 02:10:29 [facility] [place] 2022-06-09 Outpatient 3 [id number] E[facility] PM [facility] 10:37:19 0427 [facility] [place] 2022-06-01 Outpatient R IZABELA PHAM [facility] TIFFANY [id number] Univers 14:27:32 IZABELA PHAM [facility] 2022-06-01 Outpatient 3 [id number] ENCPL REF [id number] [facility] 12:13:29 0419 [facility] [place] 2020-12-14 Emergency [facility] [id number] Univers 03:38:20 ity [facility] 2020-12-14 Emergency [facility] [id number] [facility] [id number] [facility]:03[facility] [place] [facility]13 Emergency [facility] [id number] Univers 15:19:05 [facility] 2020-02-02 Inpatient [facility] [id number] [facility] 19:02:00 2020-02-02 Inpatient [facility] [id number] [facility] 19:02:00 30 2022-09-15 2022-09-15 Outpatient R LAWRENCE PETERSON [facility] 1 [id number] Univers 10:00:00 10:00:00 LAWRENCE PETERSON [facility] 2022-08-03 2022-08-03 Outpatient R JERRICA [facility] [id number] Univers 10:15:00 10:15:00 ROBINA [facility] 2022-07-18 2022-07-18 Transition ANASTASIIA Calderon [id number] Univers 00:00:00 00:00:00 of Care Elyssa BENNETT [id number] i [id number] [address] 2022-07-16 2022-07-16 Outpatient U LAWRENCE PETERSON [facility] 1 [id number] Univers 09:11:00 12:30:00 LAWRENCE PETERSON ity of [facility] [place] [facility] 2022-07-16 2022-07-16 Hospital TYE Peterson [id number] Univers 09:11:00 12:30:00 Encounter Lawrence BEARD [id number] ity of [facility] [id number] Neal as [id number] [facility] 099 Branch 2022-07-12 2022-07-12 [facility] [id number] [facility] 04:02:00 14:55:00 ELLE 2022-07-11 2022-07-11 Emergency X [facility] ERT [id number] Univers 10:09:00 11:10:00 [facility] 2022-07-11 2022-07-11 [facility] ERT [id number] Univers 10:09:00 11:10:00 [facility] 2022-07-11 2022-07-11 Emergency Nini, TRAUMA [id number] Univers 10:09:00 11:10:00 [facility] [id number] [id number] [id number] [facility] 014 Branch 2022-07-11 2022-07-11 Emergency X CRUZ, [facility] ERT [id number] Univers 04:26:00 07:38:00 RAMANA kirit [facility] 2022-07-11 2022-07-11 Emergency Morrical, Ángel O TRAUMA 1.2. 840.114 [id number] Univers 04:26:00 07:38:00 Ramana Cruz [facility] 350.1.13 .10 [place] [id number] [facility] [address] 2022-07-11 2022-07-11 Emergency [facility] 1.2.544.207 [id number] Univers 00:22:00 00:26:00 [place] 350.1.13.10 i ty of [facility] [place] [id number] [facility] [address] 2022-07-08 2022-07-08 Emergency X [facility] ERT [id number] Univers 13:26:00 13:45:00 ity [facility] 2022-07-08 2022-07-08 Emergency TRAUMA 1.2.377.920 [id number] Univers 13:26:00 13:45:00 CENTER 350.1.13.10 [place] [id number] [facility] [address] [place] 2022-07-05 2022-07-05 Outpatient Zeke BECERRIL [facility] [id number] Univers 14:30:00 14:30:00 ROBINA [facility] 2022-07-05 2022-07-05 Outpatient [facility] [id number] Univers 14:30:00 14:30:00 ROBINA [facility] 2022-07-05 2022-07-05 Emergency [facility] [id number] Univers 05:53:00 11:12:00 TRACEY [facility] 2022-07-05 2022-07-05 Emergency Hilda Miller TRAUMA 1.2.840 .114 [id number] Univers 05:53:00 11:12:00 Tracey Trinidad SAYRE 350.1.13.10 [place] [id number] [facility] [address] [place] 2022-07-04 2022-07-04 Emergency [facility] 1.2.572.545 [id number] Univers 14:13:00 14:19:00 [place] 350.1.13.10 i ty of [place] [id number] [facility] [address] 2022-07-04 2022-07-04 Outpatient Zeke BECERRIL [facility] [id number] Univers 14:00:00 14:00:00 ROBINA [facility] 2022-07-04 2022-07-04 Outpatient [facility]RT [id number] Univers 14:00:00 14:00:00 ROBINA kirit [facility] 2022-07-04 2022-07-04 Ira Becerril [facility] 1.2.840.114 [id number] Univers 00:00:00 00:00:00 Robina HEALTH 350.1.13.10 it y of Edward [place] 4.2.7.2.686 Neal as JOEL?BLEA [id number] [address] OFFICE [facility] 2022-07-04 2022-07-04 Refill [facility] 1.2.840.114 [id number] Univers 00:00:00 00:00:00 Robina HEALTH 350.1.13.10 it y of [place] 4.2.7.2.686 Neal as JOEL?BLEA [id number] [address] OFFICE [facility] 2022-06-28 2022-06-28 Telephone [facility] 1.2.897.239 [id number] Univers 00:00:00 00:00:00 [facility] 350.1.13.10 i ty of [place] [id number] [address] OFFICE [facility] 2022-06-27 2022-06-27 Outpatient R IZABELA PHAM [facility] [id number] Univers 13:15:00 13:15:00 IZABELA PHAM [facility] 2022-06-21 2022-06-23 Hospital [facility] 1 [id number] [facility] 08:54:00 18:00:00 [facility] 2022-[facility]-21 2022-06-23 Inpatient ER RACHEL MOORE Oncology [id number] [facility] 08:54:00 18:00:00 [facility] 2022-06-22 2022-06-22 Telephone [facility] 1.2.840.114 [id number] Univers 00:00:00 00:00:00 Robina HEALTH 350.1.13.10 it y of [place] 4.2.7.2.686 Neal as JOEL?BLEA [id number] [address] OFFICE [facility] 2022-06-21 2022-06-21 Orders Doctor ASHER 1.2.840.114 [id number] Univers 00:00:00 00:00:00 Only Unassigned, CHILO 350.1.13.[address] [facility] 4.2.7.2.686 Neal as [id number] [address] 2022-06-17 2022-06-17 Telephone Jerrica [facility] 1.2.840.114 102 [id number] Univers 00:00:00 00:00:00 [facility] 350.1.13.10 it y of José Miguel [facility] 4.2.7.2.686 Neal as JOEL?BLEA [phone] Ms edison LOAIZA [address] [place] [address] OFFICE BUILDING 2022-06-16 2022-06-16 Office [facility] 1.2.840.114 [id number] Univers 11:30:00 11:45:00 Visit [facility] 350.1.13.10 i ty of [place] [id number] [address] OFFICE BUILDING 2022-06-16 2022-06-16 Outpatient R LAWRENCE PETERSON [facility] 1 [id number] Univers 11:30:00 11:30:00 LAWRENCE PETERSON ity of [facility] 2022-06-16 2022-06-16 Telephone [facility] 1.2.842.377 [id number] Univers 00:00:00 00:00:00 [facility] 350.1.13.10 i ty of [place] [id number] [address] OFFICE BUILDING 2022-06-14 2022-06-14 Telephone [facility] 1.2.004.885 [id number] Univers 00:00:00 00:00:00 [facility] 350.1.13.10 i ty of [place] [id number] [address] OFFICE BUILDING 2022-06-08 2022-06-08 Telephone LAKESHIA Pham 1.2.251.620 [id number] Univers 00:00:00 00:00:00 Izabela BEARD 350.1.13.10 i ty of HOSPITAL 4.2.7.2.686 Neal as [id number] [facility] [address] 2022-06-08 2022-06-08 Transition ANASTASIIA Calderon 1.2.840.114 10 [id number] Univers 00:00:00 00:00:00 of Care Elyssa BENNETT 350.1.13.10 i ty of [place].2.[place].2.[place] [id number] [facility] [address] 2022-05-26 2022-06-07 Inpatient U [facility] [id number] Univers 15:42:00 15:09:00 ALLAN ity of [facility] 2022-05-26 2022-06-07 Hospital Meche Zapata 1.2.840.1 14 [id number] Univers 15:42:00 15:09:00 Encounter Luis Huerta 350.1.13.[address] [facility] 4.2.7.2.686 Lance Swift [id number] [facility] Allan Lynch [address] 2022-06-07 2022-06-07 Outpatient R [facility] [id number] Univers 13:00:00 13:00:00 RENEE ity [facility] 2022-06-03 2022-06-03 Surgery TYE Peterson 1.2.840.114 [id number] Univers 07:00:00 09:33:00 Lawrence BEARD 350.1.13.10 i ty of [facility] 4.2.7.2.686 Neal as [id number] [facility] [address] 2022-06-02 2022-06-02 Telephone [facility] 1.2.672.321 [id number] Univers 00:00:00 00:00:00 Izabela TORREZ 350.1.13.10 ity of [facility] [place].7.2.[place] [id number] [facility] [address] [facility] 2022-06-01 2022-06-01 Telephone [facility] 1.2.840.114 [id number] Univers 00:00:00 00:00:00 [facility] 350.1.13.10 it y of José Miguel TORREZ 4.2.7.2.686 Neal as JOEL?BLEA [phone] Ms dical JALENEY [address] [place] MEDICAL OFFICE BUILDING 2022-05-30 2022-05-30 Surgery TYE Lynch 1.2.840.114 [id number] Univers 20:00:00 22:46:00 Allan CHILO 350.1.13.10 it y of [facility] 4.2.7.2.686 Neal as [id number] [facility] [address] 2022-05-29 2022-05-29 Surgery TYE Lynch 1.2.840.114 [id number] Univers 07:20:00 10:33:00 Allan CHILO 350.1.13.10 it y of [facility] 4.2.7.2.686 Neal as [id number] [address] 2022-05-26 2022-05-26 Outpatient R [facility] [id number] Univers 09:45:00 09:45:00 ROBINA [facility] 2022-05-24 2022-05-24 Outpatient R [facility] [id number] Univers 00:00:00 00:00:00 WOO [facility] 2022-05-24 2022-05-24 Prep [facility] 1.2.840.114 [id number] Univers 00:00:00 00:00:00 Surgery [facility] 350.1.13.10 ity [facility] [place].2.[place] [phone] Ms dical DEEPA [address] [facility] 2022-05-23 2022-05-23 Emergency X IBIKUNLE, [facility] ERT [id number] Univers 16:40:00 18:12:00 FOLUSHO ity [facility] 2022-05-23 2022-05-23 Emergency X IBIKUNLE, [facility] ERT [id number] Univers 16:40:00 18:12:00 FOLUSHO ity [facility] 2022-05-23 2022-05-23 Emergency [facility]heronunmartineM[facility]CAL[facility] 1.2.840.114 10 [id number] Univers 16:40:00 18:12:00 Rodrigo [facility] 350.1.13.10 ity of [facility] 4.2.7.2.[place] [id number] [facility] [address] [place] 2022-05-23 2022-05-23 Emergency [facility] 1.2.087.662 [id number] Univers 03:49:00 06:12:00 Carlos TORREZ 350.1.13.10 ity of [facility] 4.2.7.2.[place] [id number] [facility] [address] [place] 2022-05-23 2022-05-23 Telephone [facility] 1.2.840.114 102 [id number] Univers 00:00:00 00:00:00 [facility] 350.1.13.10 it y of José Miguel [facility] 4.2.7.2.686 Neal as JOEL?BLEA [phone] Ms edison RAOEY [address] [place] [place] MEDICAL OFFICE BUILDING 2022-05-19 2022-05-[address] [facility] [id number] Univers 09:30:00 10:37:40 VERO [facility] 2022-05-19 2022-05-19 Office [facility] 1.2.840.114 [id number] Univers 09:30:00 10:37:40 Visit Izabela [facility] 350.1.13.10 ity of [facility] 4.2.7.2.686 [place] [facility] [id number] Ms edison ARENAS [address] BUILDING 2022-05-19 2022-05-19 Orders Doctor ASHER 1.2.840.114 [id number] Univers 00:00:00 00:00:00 Only Unassigned, CHILO 350.1.13.[address] [place] [facility] 4.2.7.2.686 Neal as [id number] [facility] [address] [place] 2022-05-17 2022-05-17 Outpatient R ROGER [facility] [id number] Univers 08:00:00 08:57:35 WOO ity [facility] 2022-05-17 2022-05-17 Orders Doctor ASHER 1.2.840.114 [id number] Univers 00:00:00 00:00:00 Only Unassigned, CHILO 350.1.13.[address] [facility] 4.2.7.2.686 Neal as [id number] [address] 2022-05-16 2022-05-16 Orders Doctor LAKESHIA 1.2.840.114 [id number] [facility] 00:00:00 00:00:00 Only Unassigned, CHILO 350.1.13.[address] [facility] 4.2.7.2.686 Neal as [id number] [address] 2022-05-05 2022-05-05 Outpatient R [facility] [id number] 6867 [facility] 10:00:00 10:00:00 ROBINA [facility] 2022-05-05 2022-05-05 Telephone [facility] 1.2.840.114 [id number] [facility] 00:00:00 00:00:00 [facility] 350.1.13.10 it y of [place] 4.2.7.2.686 Neal as JOEL?BLEA [id number] [address] MEDICAL OFFICE [facility] 2022-05-04 2022-05-04 Orders Doctor LAKESHIA 1.2.840.114 [id number] [facility] 00:00:00 00:00:00 Only Unassigned, CHILO 350.1.13.[address] [facility] 4.2.7.2.686 Neal as [id number] [address] 2022-05-03 2022-05-03 Office [facility] 1.2.840.114 [id number] Univers 09:45:00 10:15:00 Visit [facility] 350.1.13.10 it y of [place] 4.2.7.2.686 Neal as JOEL?BLEA [id number] [address] MEDICAL OFFICE BUILDING 2022-05-03 2022-05-03 Outpatient R [facility] [id number] [facility] 09:45:00 09:45:00 ROBINA hooks [facility] 2022-04-22 2022-04-22 Orders Doctor LAKESHIA 1.2.840.114 [id number] Univers 00:00:00 00:00:00 Only Unassigned, CHILO 350.1.13.[address] [facility] 4.2.7.2.686 Neal as [id number] [facility] [address] 2022-04-22 2022-04-22 Telephone [facility] 1.2.840.114 10 [id number] Univers 00:00:00 00:00:00 Strahil T [place] 350.1.13.10 ity of [facility] 4.2.7.2.[place] [phone] [address] 2022-04-13 2022-04-13 Office [facility] 1.2.904.878 6974 7721 [facility] 09:30:00 10:00:00 Visit Strahil T [place] 350.1.13.10 ity of [facility] 4.2.7.2.[place] [phone] Ms dic[address] 2022-04-13 2022-04-13 Outpatient R DAWSON CHOUDHURY [facility] [id number] Univers 09:30:00 09:30:00 ATAMARYLIN PÉREZL ity of [facility] 2022-04-13 2022-04-13 Orders Doctor LAKESHIA 1.2.840.114 [id number] Univers 00:00:00 00:00:00 Only Unassigned, CHILO 350.1.13.[address] [facility] 4.2.7.2.686 Neal as [phone] [place] [address] [address] 2022-04-13 2022-04-13 Telephone [facility] 1.2.840.114 10 [id number] Univers 00:00:00 00:00:00 Strahil T MULTISPEC 350.1.13.10 ity of [place].2.[place] [id number] [address] [facility] 2022-04-07 2022-04-07 Office Jerrica [facility] 1.2.840.114 [id number] Univers 10:30:00 11:02:20 Visit [facility] 350.1.13.10 it y of [place] SHAN 4.2.7.2.686 [place] as JOEL?BLEA [phone] Ms alpa[address] MEDICAL OFFICE [facility] 2022-04-07 2022-04-07 Outpatient [facility] [id number] Univers 10:30:00 10:30:00 ROBINA ity of [facility] 2022-04-06 2022-04-06 [facility] 1.2.840.114 [id number] Univers 00:00:00 00:00:00 [facility] 350.1.13.10 it y of Edziyad TORREZ 4.2.7.2.686 Neal as JOEL?BLEA [phone] [address] MEDICAL OFFICE [facility] 2022-04-02 2022-04-02 Associate Project Manager 1, [facility] Sleep Lab Bed [facility] 1. 2.840.114 [id number] Univers 20:00:00 22:30:00 Visit Dawson Choudhury [place] 350.1.13. 10 ity of [facility] 4.2.7.2.[place] [id number] [facility] [address] 2022-04-02 2022-04-02 Outpatient R DAWSON [facility]DH[facility]Y [facility] [id number] Univers 20:00:00 20:00:00 DAWSON CHOUDHURY ity of [facility] 2022-04-02 2022-04-02 Orders Doctor ASHER 1.2.840.114 [id number] Univers 00:00:00 00:00:00 Only Unassigned, CHILO 350.1.13.[address] [facility] 4.2.7.2.686 Neal as [phone] [facility] [address] 2022-03-24 2022-03-24 [facility] Susan Manjarrez [facility] 1.2.840.114 10 [id number] Univers 08:01:23 23:59:00 Encounter SHAN 350.1.13.10 ity of [facility] 4.2.7.2.[place] [id number] [facility] [address] 2022-03-24 2022-03-24 Outpatient R [facility] [id number] Univers 07:57:08 08:00:00 DELROY ity of [facility] 2022-03-24 2022-03-24 [facility] 1.2.840.114 [id number] Univers 07:57:08 08:00:00 Encounter Delroy TORREZ 350.1.13.10 ity of [facility] 4.2.7.2.[place] [id number] [facility] [address] [place] 2022-02-16 2022-02-16 Telephone [facility] 1.2.840.114 [id number] Univers 00:00:00 00:00:00 [facility] 350.1.13.10 it y of José Miguel [facility] 4.2.7.2.686 Neal as JOEL?BLEA [id number] [address] MEDICAL OFFICE BUILDING 2022-02-15 2022-02-15 Orders Doctor ASHER 1.2.840.114 [id number] Univers 00:00:00 00:00:00 Only Unassigned, CHILO 350.1.13.[address] [facility] 4.2.7.2.686 Neal as [id number] [facility] [address] [place] 2022-02-03 2022-02-03 Orders Doctor LAKESHIA 1.2.840.114 [id number] Univers 00:00:00 00:00:00 Only Unassigned, CHILO 350.1.13.[address] [facility] 4.2.7.2.686 Neal as [id number] [address] 2022-02-02 2022-02-02 Office [facility] 1.2.840.114 [id number] Univers 09:30:00 09:45:00 Visit [facility] 350.1.13.10 it y of José Miguel [facility] 4.2.7.2.686 Neal as JOEL?BLEA [id number] [address] MEDICAL OFFICE BUILDING 2022-02-02 2022-02-02 Outpatient R [facility] [id number] Univers 09:30:00 09:40:22 ORBINA ity of [facility] 2022-01-17 2022-01-17 Orders Doctor ASHER 1.2.840.114 [id number] Univers 00:00:00 00:00:00 Only Unassigned, CHILO 350.1.13.[address] [facility] 4.2.7.2.686 Neal as [id number] [address] 2022-01-03 2022-01-03 Office [facility] 1.2.840.114 [id number] Univers 09:15:00 09:30:00 Visit [facility] 350.1.13.10 it y of José Miguel TORREZ 4.2.7.2.686 Neal as JOEL?BLEA [id number] Ms edison RAOEY 044 [facility] OFFICE [facility] 2022-01-03 2022-01-03 Outpatient R JERRICA [facility] [id number] Univers 09:15:00 09:15:00 ROBINA [facility] 2021-12-08 2021-12-08 Office Macey [facility] 1.2.691.304 [id number] Univers 10:20:00 10:40:00 Visit Dawson TORREZ 350.1.13.10 ity of [place].2.[place] [id number] Ms edison ARENAS 085 [facility] 2021-12-08 2021-12-08 Outpatient R MACEY, DAWSON [facility] [id number] Univers 10:20:00 10:20:00 ATANASOV, STRAHIL ity of [facility] 2021-12-08 2021-12-08 Outpatient R ATANASOV, STRAWAL [facility] [id number] Univers 10:20:00 10:20:00 SARAOV, BINUHIL ity [facility] 2021-12-08 2021-12-08 Orders Doctor ASHER 1.2.840.114 [id number] Univers 00:00:00 00:00:00 Only Unassigned, CHILO 350.1.13.[address] [facility] 4.2.7.2.686 Neal as [id number] [address] 2021-12-02 2021-12-02 Office Enmanuelanjum [facility] 1.2.840.114 [id number] Univers 11:00:00 11:15:00 Visit Robina [facility] 350.1.13.10 it y of José Miguel TORREZ 4.2.7.2.686 Neal as JOEL?BLEA [id number] [address] MEDICAL OFFICE BUILDING 2021-12-02 2021-12-02 Outpatient R JERRICA [facility] [id number] Univers 11:00:00 11:00:00 ROBINA [facility] 2021-11-25 2021-11-25 Outpatient R DAWSON CHOUDHURY [facility] [id number] Univers 20:00:00 20:00:00 DAWSON CHOUDHURY kirit [facility] 2021-11-22 2021-11-22 Outpatient R BINU CHOUDHURYWAHillary [facility] [id number] Univers 10:15:00 10:15:00 BINU CHOUDHURYWAHillary [facility] 2021-11-04 2021-11-04 Associate Project Manager Agapito [facility] Sleep Lab [facility] 1.2 .840.114 [id number] Univers 10:00:00 10:15:00 Visit Dawson Choudhury 350.1.13. 10 ity [facility] 4.2.7.2.686 [facility] [id number] [facility] [address] 2021-11-04 2021-11-04 Outpatient R DAWSON CHOUDHURY [facility] [id number] Univers 10:00:00 10:00:00 DAWSON CHOUDHURY [facility] 2021-11-04 2021-11-04 Orders Doctor ASHER 1.2.840.114 [id number] Univers 00:00:00 00:00:00 Only Unassigned, CHILO 350.1.13.[address] [facility] 4.2.7.2.686 [facility] [phone] [place] [address] [address] 2021-11-02 2021-11-02 Outpatient R JERRICA [facility] [id number] Univers 09:30:00 10:02:11 [facility] [place] 2021-11-02 2021-11-02 Office [facility] 1.2.840.114 [id number] Univers 09:30:00 09:45:00 Visit Robina [facility] 350.1.13.10 it y of Edziyad TORREZ 4.2.7.2.686 Neal as JOEL?BLEA [phone] [address] MEDICAL OFFICE [facility] 2021-11-02 2021-11-02 Telephone [facility] 1.2.840.114 [id number] Univers 00:00:00 00:00:00 Strahil T MULTISPEC 350.1.13.10 ity of [place] [id number] [facility] AND [address] [facility] 2021-10-07 2021-10-07 Telephone [facility] 1.2.840.114 [id number] [facility] 00:00:00 00:00:00 [facility] 350.1.13.10 it y of José Miguel TORREZ 4.2.7.2.686 Neal as JOEL?BLEA [id number] [address] OFFICE [facility] 2021-10-05 2021-10-05 Outpatient R [facility] [id number] Univers 14:15:00 14:43:53 ROBINA ity [facility] 2021-10-05 2021-10-05 Office [facility] 1.2.840.114 [id number] Univers 14:15:00 14:30:00 Visit [facility] 350.1.13.10 it y of Edziyad TORREZ 4.2.7.2.686 Neal as JOEL?BLEA [phone] [address] OFFICE [facility] 2021-10-05 2021-10-05 Outpatient R [facility] [id number] Univers 14:15:00 14:15:00 ROBINA ity [facility] 2021-09-22 2021-09-22 Office [facility] 1.2.418.448 [id number] Univers 13:40:00 14:00:00 Visit Dawson Decker [place] 350.1.13.10 ity of [place].2.7.2.686 [place] [id number] Ms alpaletty DEEPA [address] [facility] 2021-09-22 2021-09-22 Outpatient R BINU CHOUDHURYWAHillary [facility] [id number] Univers 13:40:00 13:40:00 [facility] ity [facility] 2021-09-22 2021-09-22 Outpatient R MACEY [facility] [id number] Univers 13:40:00 13:40:00 [facility] [place] 2021-09-21 2021-09-21 Letter LAKESHIA Morales 1.2.840.114 [id number] Univers 00:00:00 00:00:00 (Out) Erma BEARD 350.1.13.10 it y of [facility] 4.2.7.2.686 Neal as [phone] [address] 2021-09-20 2021-09-20 Outpatient R [facility] [id number] Univers 15:00:00 15:33:41 MAGDALENE gradyy o f [facility] 2021-09-20 2021-09-20 [facility] 1.2.840. 114 [id number] Univers 15:00:00 15:33:41 [facility] [id number] ity [facility] [id number] Neal as JOEL?BLEA [phone] [facility] [address] MEDICAL OFFICE BUILDING 2021-09-20 2021-09-20 [facility] [id number] Univers 15:00:00 15:33:41 MAGDALENE hooks o f [facility] 2021-09-15 2021-09-15 Outpatient R JERRICA [facility] [id number] Univers 11:15:00 11:37:11 ROBINA hooks [facility] 2021-09-15 2021-09-15 [facility] 1.2.840.114 [id number] Univers 11:15:00 11:30:00 Visit [facility] [id number] it y of José Miguel TORREZ [id number] Neal as JOEL?BLEA [phone] Ms edison [address] MEDICAL OFFICE [facility] 2021-09-15 2021-09-15 Outpatient R JERRICA [facility] [id number] Univers 11:15:00 11:15:00 ROBINA [facility] 2021-06-30 2021-06-30 Orders Doctor LAKESHIA 1.2.840.114 [id number] Univers 00:00:00 00:00:00 Only Unassigned, CHILO [id number] [facility] [id number] Neal as [phone] [facility] [address] 2021-05-24 2021-05-24 [facility] 1.2.840.114 [id number] Univers 00:00:00 00:00:00 [facility] [id number] it y of José Miguel RICEDAVIDE [id number] Neal as JOEL?BLEA [phone] Ms edison [address] MEDICAL OFFICE [facility] 2021-05-11 2021-05-11 Outpatient Zeke BECERRIL [facility] [id number] Univers 11:45:00 11:45:00 ROBINA [facility] 2021-03-31 2021-04-02 Emergency X SYD OKNEDA ERT [id number] Univers 09:05:00 07:46:00 CARLOS hooks [facility] 2021-03-31 2021-04-02 Emergency Ladonna Bryant [facility] 1.2.8 40.114 [id number] Univers 09:05:00 07:46:00 Carlos Corbin [place] [id number] ity of [place] [id number] [place] [facility] [phone] [facility] [address] 2020-12-21 2020-12-21 Emergency X ROSETTA [facility] ERT [id number] Univers 12:12:00 16:04:00 MICHAEL hooks [facility] 2020-12-21 2020-12-21 Emergency [facility] 1.2.084.684 [id number] Univers 12:12:00 16:04:00 Michael TORREZ 350.1.13.10 i ty of [facility] 4.2.7.2.686 [facility] [phone] [address] 2020-12-10 2020-12-10 Outpatient [facility] [id number] Univers 09:00:00 09:00:00 [facility] 2020-12-08 2020-12-08 Emergency [facility] 1.2.747.385 [id number] Univers 05:45:00 08:15:00 Carlos Riceton 350.1.13.10 ity [place] 4.2.7.[address] [facility] [phone] [address] 2020-12-08 2020-12-08 Emergency X [facility] ERT [id number] Univers 05:45:00 08:15:[facility] 2020-11-10 2020-11-10 Outpatient [facility] [id number] Univers 13:10:00 13:10:00 kirit [facility] 2020-11-10 2020-11-10 Outpatient Zeke [facility] [id number] Univers 09:30:00 10:05:31 [facility] 2020-11-10 2020-11-10 Office [facility] 1.2.840.114 [id number] Univers 09:22:11 09:52:11 Visit [facility] 350.1.13.10 it y of José Miguel Riceton 4.2.7.2.686 Neal as Joel?Blea [phone] Ms edison [address] Medical Office Building 2020-09-19 2020-09-19 Outpatient YVON_URSULA [facility] [phone] [place] 03:24:00 03:24:00 E__ 86521 Medica l Group 2020-09-04 2020-09-04 Orders Doctor ASHER 1.2.840.114 [id number] Univers 00:00:00 00:00:00 Only Unassigned, CHILO 350.1.13.[address] [facility] 4.2.7.2.686 Neal as [phone] [facility] [address] Branch 2020-08-22 2020-08-22 [facility] 456 [place] 05:19:00 05:19:00 ECHASE_ [id number] Medica l Group 2020-08-17 2020-08-17 Outpatient Zeke LOPEZ [facility] [id number] Univers 09:00:00 09:00:00 WONDIFUL ity o f [facility] 2020-08-06 2020-08-07 [facility] Edgard Leo 1.2.840.1 14 [id number] Univers 13:41:00 23:00:00 Encounter Magali Curtis Chilo 350.1.13.10 ity of [facility] 4.2.7.2.68 Neal as [phone] [facility] 096 Branch 2020-08-03 2020-08-05 Emergency Ted Lion 1.2.840. 114 [id number] Univers 08:54:00 16:11:00 HoseajyotiAllen 350.1.13.10 ity of [facility] 4.2.7.2 .686 [place] [id number] [facility] 092 Branch 2020-07-31 2020-07-31 [facility] 1.2.840.114 [id number] Univers 08:39:00 14:39:00 Ladonna Torrez 350.1.13.10 ity [facility] 4.2.7.2.[address] [facility] [id number] [facility] 084 Branch 2020-07-25 2020-07-25 Outpatient BENCHUCK [facility] 456 [place] 06:29:00 06:29:00 ECHASE_ [id number] Medica l Group 2020-07-24 2020-07-24 [facility] 456 [place] 11:00:00 11:00:00 URIEL_ 44070 Medica l Group 2020-06-08 2020-06-08 Emergency [facility] 1.2.157.093 [id number] Univers 13:48:00 17:01:00 Ted Torrez 350.1.13.10 i ty of [place] [phone] [facility] 084 Branch 2020-01-28 2020-01-28 Outpatient JAM, [facility] [id number] [address] [place] [address] 00:00:00 00:00:00 [facility] 2020-01-20 2020-01-20 Outpatient EGBULEMARK, [facility] [id number] [place] 11:36:00 16:26:30 [facility] 2019-10-29 2019-10-31 Inpatient WARREN, [facility] 089 [id number] 24 [place] 00:00:00 00:00:00 YASMINE 164 [facility] 2019-03-12 2019-03-12 [facility] 1.2.840.114 [id number] Univers 14:43:00 23:59:00 Encounter [facility] 350.1.13.10 [place] [id number] [facility] 806 Branch 2019-03-11 2019-03-12 Hospital Sergio, [facility] 1.2.840.114 [id number] Univers 15:17:00 17:21:00 Encounter [facility] 350.1.13.10 [place] [id number] [facility] 011 Branch 2019-03-11 2019-03-12 Office Surgery, Td General [facility] 1.2.8 40.114 [id number] Univers 09:09:17 08:54:29 Visit [facility] 350.1.13.10 ity of [place] 4.2.7.2.686 [place] [id number] [facility] 215 Branch 2018-10-31 2018-10-31 Office Surgery, Td Vascular [facility] 1.2. 840.114 [id number] Univers 08:41:29 09:11:[address] [facility] 350.1.13.10 ity [place] [id number] Medi gordon 279 [address] 2014-07-22 2014-07-22 [facility] [id number] 475 [place] 17:51:00 21:57:00 Emergency r Titi 00 l [facility] 2014-07-22 2014-07-22 [facility] [id number] [place] 17:51:00 21:57:00 Emergency r [place] 00 l [facility] 2014-07-22 2014-07-22 Outpatient Griffin, 2.16.840. 2.16.840.1 . [id number] 12:51:00 16:57:00 Christy 1.344138. [id number] 00 Radhika 3.615.0.1 5.0.101 01 Results Test Description Test Time Test Comments Results Result Sourc e Comments RAD, CHEST, 1 2022-06-15 Post-intubationReason VIEW, NON DEPT 0 for 13:01:00 exam:->encephalopathy , r/o CHI JUAQUIN - aspirationShould this MEDICAL CENTERName: be performed at the CHARO KAYE bedside?->Yes [...] (BEAKER) (test 3.000 <0.400 H code = 2251) 4T TOTAL SCORE (BEAKER) (test code 3 = 6871) BASIC METABOLIC [id number] 09:21:22 Test Item Value Reference Range Interpretation [...] not appl icable for dialysis patien ts Senior Rd Engineer ID - [id number] 07:01:03 Test Item Value Reference Range Interpretation Comments PHOSPHORUS (BEAKER) (test code = 3.1 mg/dL 2.3-4.7 604) Senior Rd Engineer ID - PABLITO WHEPATIC FUNCTION [id number] 07:01:02 Test Item Value Reference Range Interpretation [...] (test code = 21 U/L 6-55 347) Senior Rd Engineer ID - PABLITO [id number] 07:01:02 Test Item Value Reference Range Interpretation Comments MAGNESIUM (BEAKER) (test code = 2.5 mg/dL 1.6-2.6 627) Senior Rd Engineer ID Marquis KENNEY WB-TYPE NATRIURETIC FACTOR (BNP)2022-07-12 06:45:03 Test Item Value Reference Range Interpretation Comments B-TYPE NATRIURETIC PEPTIDE (ALMAAKER) 33 pg/mL 0-100 (test code = 700) Senior Rd Engineer ID Marquis KENNEY [id number] 06:38:12 Test Item Value Reference Range Interpretation Comments D-DIMER QUANTITATIVE (PIO) 4.87 MG/L FEU <0.50 H (test code [...] of thrombosis is within 95-100% range. PROTHROMBIN TIME/[id number] 06:28:19 Test Item Value Reference Range Interpretation Comments PROTIME (BEAKER) (test code = 13.9 seconds 11.9-14.2 759) INR (BEAKER) (test code = 370) 1.09 <=5.90 RECOMMENDED COUMADIN/WARFARIN INR THERAPY RANGESSTANDARD DOSE: 2.0 - 3.0 Includes: PROPHYLAXIS for venous thrombosis, systemic embolization; TREATMENT for venous thrombosis and/or pulmonary embolus.HIGH RISK: Target INR is 2.5-3.5 for patients with mechanical heart valves.POCT-GLUCOSE [id number] 06:10:03 Test Item Value Reference Range Interpretation Comments POC-GLUCOSE METER 97 mg/dL 70-110 : TESTED Jose Raul T [facility] 6720 (PIO) (test code = CHRISTAL ENG [place], 1538) [address]78: Senior Rd Engineer/Techni santosh ID = [id number] for Jackie Sousa COMP. METABOLIC PANEL (15320)2022-07-11 11:58:27 Test Item Value Reference Range Interpretation Comments NA (test code = 138 mmol/L 135-145 2133458870) K (test code = 4.5 mmol/L 3.5-5.0 Slight hemoly sis 2477260577) CL (test code = 101 mmol/L 98-108 6878680370) CO2 TOTAL (test 23 mmol/L 23-31 code = 0285739154) AGAP (test code = 14 2-16 6280351999) BUN (test code = 14 mg/dL 7-23 Slight hemo lysis 4962033762) GLUCOSE (test code 94 mg/dL 70-110 = 5071722808) CREATININE (test 0.67 mg/dL 0.60-1.25 code = 7132827056) TOTAL BILI (test 0.6 mg/dL 0.1-1.1 code = 9834169696) CALCIUM (test code 9.0 mg/dL 8.6-10.6 = 3651730824) T PROTEIN (test 7.2 g/dL 6.3-8.2 code = 4206711276) ALBUMIN (test code 4.5 g/dL 3.5-5.0 = 7882493804) ALK PHOS (test 88 U/L 34-122 Slight hemoly sis code = 3880439555) ALTv (test code = 31 U/L 5-50 1742-6) AST(SGOT) (test 40 U/L 13-40 Slight hemol ysis code = 3924885608) eGFR (test code = 121.4 mL/min/1.73m2 4214563347) DEWAYNE (test code = Association of DEWAYNE) [...] or urine or abnormalities in imaging tests). [facility] WITH [id number] 11:18:00 Test Item Value Reference Range Interpretation Comments WBC (test code = 7.15 See_Comment [Automated 5790-2) message] The sy stem which generated this result transmitted reference range : 4.20 - 10.70 10*3/?L. The reference range was not used to interpret this result as normal/abnormal . RBC (test code = 3.45 See_Comment L [Automated 779-8) message] The sy stem which generated this [...] (test code = 53.9 fL 38.5-51.6 H 86566-7) RDW-CV (test code = 17.2 % 12.1-15.4 H 788-0) PLT (test code = 400 See_Comment H [Automated 777-3) message] The sy stem which generated this result transmitted reference range : 150 - 328 10*3/ ?L. The reference r mitra was not used to interpret this result as normal/abnormal . MPV (test code = 8.8 fL 9.8-13.0 L 98902-3) NRBC/100 WBC (test 0.0 See_Comment [Automat ed code = 4001739502) message] The system which generated this result transmitted reference range : 0.0 - 10.0 /100 WBCs. The refer ence range was not u sed to interpret th is result as normal/abnormal . NRBC x10^3 (test code See_Comment [Auto mated = 5036625190) message] The s ystem which generated this result transmitted reference range : 10*3/?L. The reference range was not used to interpret this result as normal/abnormal . GRAN MAT (NEUT) % 71.5 % (test code = 770-8) IMM GRAN % (test code 0.40 % = 8674081731) LYMPH % (test code = 17.6 % 736-9) MONO % (test code = 7.4 % 5905-5) EOS % (test code = 1.8 % 713-8) BASO % (test code = 1.3 % 706-2) GRAN MAT x10^3(ANC) 5.11 10*3/uL 1.99-6.95 (test code = 3647369273) IMM GRAN x10^3 (test 0.03 10*3/uL 0.00-0.06 code = 1543231391) LYMPH x10^3 (test code 1.26 10*3/uL 1.09-3.23 = 731-0) MONO x10^3 (test code 0.53 10*3/uL 0.36-1.02 = 742-7) EOS x10^3 (test code = 0.13 10*3/uL 0.06-0.53 711-2) BASO x10^3 (test code 0.09 10*3/uL 0.01-0.09 = 704-7) Lab Interpretation Abnormal (test code = 99909-5) [facility]11 09:27:00 Test Item Value Reference Range Interpretation Comments POCT GLU (test code = 7798936631) 95 mg/dL 70-110 Lab Interpretation (test code = Normal 98210-0) [facility]. METABOLIC PANEL (92607)2022-07-05 13:14:57 Test Item Value Reference Range Interpretation Comments NA (test code = 137 mmol/L 135-145 3476699311) K (test code = 4.2 mmol/L 3.5-5.0 0755891655) CL (test code = 100 mmol/L 98-108 2631221082) CO2 TOTAL (test code = 24 mmol/L 23-31 0158158833) AGAP (test code = 13 2-16 6835112870) BUN (test code = 11 mg/dL 7-23 3059767454) GLUCOSE (test code = 124 mg/dL 70-110 H 5454638347) CREATININE (test code = 0.81 mg/dL 0.60-1.25 6665646912) TOTAL BILI (test code = 0.6 mg/dL 0.1-1.4 2292682079) CALCIUM (test code = 9.1 mg/dL 8.6-10.6 0027808109) T PROTEIN (test code = 7.0 g/dL 6.3-8.2 5277120249) ALBUMIN (test code = 4.3 g/dL 3.5-5.0 2716531461) ALK PHOS (test code = 103 U/L 34-122 2211985782) ALTv (test code = 28 U/L 5-50 1742-6) AST(SGOT) (test code = 39 U/L 13-40 1253612324) eGFR (test code = 97.5 mL/min/1.73m2 2466178964) DEWAYNE (test code = DEWAYNE) Association of [...] tests). Lab Interpretation Abnormal (test code = 57150-2) [facility] [id number] 12:25:35 Test Item Value Reference Range Interpretation Comments NT-proBNP (test code = 523 pg/mL <=125 H 0969813015) DEWAYNE (test code = DEWAYNE) Biotin has been reported to cause a negative bias, interpret results relative to patient's use of biotin. Lab Interpretation (test Abnormal code = 89146-8) [facility] [id number] 12:25:35 Test Item Value Reference Range Interpretation Comments TROPONIN I (test code = 0.009 ng/mL <=0.034 5160645567) DEWAYNE (test code = DEWAYNE) Reference (Normal) [...] biotin. Lab Interpretation Normal (test code = 49308-4) [facility] WITH [id number] 12:01:31 Test Item Value Reference Range Interpretation Comments WBC (test code = 7.09 See_Comment [Automated 5190-2) message] The sy stem [...] (test code = 52.8 fL 38.5-51.6 H 11296-1) RDW-CV (test code = 16.1 % 12.1-15.4 H 788-0) PLT (test code = 436 See_Comment H [Automated 777-3) message] The sy stem which generated this result transmitted reference range : 150 - 328 10*3/ ?L. The reference r mitra was not used to interpret this result as normal/abnormal . MPV (test code = 8.9 fL 9.8-13.0 L 19604-8) NRBC/100 WBC (test 0.3 See_Comment [Automat ed code = 1111845256) message] The system which generated this result transmitted reference range : 0.0 - 10.0 /100 WBCs. The refer ence range was not u sed to interpret th is result as normal/abnormal . NRBC x10^3 (test code 0.02 See_Comment [Auto mated = 7288873184) message] The s ystem which generated this result transmitted reference range : 10*3/?L. The reference range was not used to interpret this result as normal/abnormal . GRAN MAT (NEUT) % 69.0 % (test code = 770-8) IMM GRAN % (test code 0.40 % = 1463777660) LYMPH % (test code = 16.1 % 736-9) MONO % (test code = 12.7 % 5905-5) EOS % (test code = 0.8 % 713-8) BASO % (test code = 1.0 % 706-2) GRAN MAT x10^3(ANC) 4.89 10*3/uL 1.99-6.95 (test code = 3139438701) IMM GRAN x10^3 (test 0.03 10*3/uL 0.00-0.06 code = 3617956664) LYMPH x10^3 (test code 1.14 10*3/uL 1.09-3.23 = 731-0) MONO x10^3 (test code 0.90 10*3/uL 0.36-1.02 = 742-7) EOS x10^3 (test code = 0.06 10*3/uL 0.06-0.53 711-2) BASO x10^3 (test code 0.07 10*3/uL 0.01-0.09 = 704-7) Lab Interpretation Abnormal (test code = 08527-9) [facility]EROTONIN RELEASE [id number] 14:13:16 Test Item Value Reference Range Interpretation Comments SCAN RESULT (test code = 3106678) UFH LOW DOSE 0.1 (2) See sca nned report. (BEAKER) (test code = 2593) See scanned reportU/S, RENAL, [id number] 17:23:00Reason for exam:->hydronephrosis [facility] 1960 Sex: [...] residual urinary bladder volume Signed: Susan Dumont MDRepgeneral [facility] Verified Date/Time: 06/23/2022 17:23:41 CBC W/PLT COUNT & AUTO [id number] 05:58:22 Test Item Value Reference Range Interpretation [...] (BEAKER) (test code = 2801) U/S, ABDOMINAL, [id number] 16:48:00Abdomen limited area? Add comment if clarification is needed.->Right upper quadrantReason for exam:->elevated Tbili - please evaluate [facility] : 1960 Sex: [...] right upper quadrant ultrasound. Signed: Jm Baeza [facility] Verified Date/Time: 6:48:01 SERUM [id number] 16:04:04 Test Item Value Reference Range Interpretation Comments IMMUNOGLOBULIN A (IGA) 146 mg/dL 63-484 (Verican) (test code = 639) IMMUNOGLOBULIN G (IGG) 704 mg/dL 540-1822 (Verican) (test code = 427) IMMUNOGLOBULIN M (IGM) 72 mg/dL 22-293 (MarkerlyAKER) (test code = 638) SERUM IT ID 6144(MarkerlyAKER) No monoclonal (test code = 3817) protein detected. [facility]-PATHOLOGIST-"[id number] Axel Lawler " ([facility]) (test code = M.DMinda 3801) Clinical Forder Operator - SFOperator ID - ADMINPROTEIN ELECTROPHORESIS, SERUM WITH REFLEX TO [id number] 16:03:41 Test Item Value Reference Range Interpretation [...] Alpha-1 globulin (BEAKER) (test code = increased. 2611) Non-specific change. [id number] Axel Riojasmeryl, (BEAKER) (test code = M.D. 1316) PROTEIN TOTAL SERUM, 6.6 gm/dL 6.0-8.3 SPEP (BEAKER) (test code = 2660) Clinical Forder Operator - SFOperator ID - ADMINOperator ID - ADMHEPARIN ANTIBODY 2022-06-22 12:12:51 Test Item Value Reference Range Interpretation Comments HEPARIN ANTIBODY Positive-See Serotonin Negative A (BEAKER) (test code = Release Assay for 646) Confirmation HEPARIN ANTIBODY OD 3.000 <0.400 H (BEAKER) (test code = 2659) 4T TOTAL SCORE 5 (BEAKER) (test code = 2661) [id number] 05:50:16 Test Item Value Reference Range Interpretation Comments HAPTOGLOBIN (BEAKER) (test code = 308 mg/dL 14-258 H 366) Senior Rd Engineer ID - ADMINOperator ID - ADMINVITAMIN [id number] 05:20:33 Test Item Value Reference Range Interpretation Comments VITAMIN B12 (BEAKER) (test code = 359 pg/mL 213-816 774) Senior Rd Engineer ID - [id number] 05:20:33 Test Item Value Reference Range Interpretation Comments FERRITIN (BEAKER) (test code = 415.83 ng/mL 5.00-275.00 H 361) Senior Rd Engineer ID - RADHAON, TIBC, % SAT. (WITHOUT FERRITIN)2022-06-22 04:59:45 Test Item Value Reference Range Interpretation Comments IRON (BEAKER) (test code = 547) 38.0 ug/dL 40.0-160.0 L TOTAL IRON BINDING CAPACITY 311 ug/dL 250-450 (BEAKER) (test code = 769) IRON % SATURATION (2) (BEAKER) 12 % 20-55 L (test code = 2590) Senior Rd Engineer ID - MARCORETICULOCYTE [id number] 04:53:40 Test Item Value Reference Range Interpretation Comments RETICULOCYTE COUNT PCT (BEAKER) (test 5.7 % 0.5-1.8 H code = 575) Senior Rd Engineer ID - [id number] W/PLT COUNT & AUTO [id number] 04:53:36 Test Item Value Reference Range Interpretation [...] (BEAKER) (test code = 2801) HEPATIC FUNCTION [id number] 04:48:30 Test Item Value Reference Range Interpretation [...] (test code = 19 U/L 6-55 347) Senior Rd Engineer ID - ADMINLACTATE DEHYDROGENASE (LDH)2022-06-22 04:48:30 Test Item Value Reference Range Interpretation Comments LACTATE DEHYDROGENASE (BEAKER) (test 271 U/L 125-220 H code = 635) Senior Rd Engineer ID - ADMINBASIC METABOLIC [id number] 04:48:29 Test Item Value Reference Range Interpretation [...] De scription 1092) sq m Result G1 Norm al or high >=90 G2 Mildly decreased 60-89 [...] not appl icable for dialysis patien ts Senior Rd Engineer ID - [id number] 04:48:29 Test Item Value Reference Range Interpretation Comments MAGNESIUM (BEAKER) (test code = 2.2 mg/dL 1.6-2.6 627) Senior Rd Engineer ID - ADMINCOMPREHENSIVE METABOLIC [id number] 13:27:13 Test Item Value Reference Range Interpretation [...] not appl icable for dialysis patien ts Senior Rd Engineer ID - JSCBC W/PLT COUNT & AUTO [id number] 13:14:04 Test Item Value Reference Range Interpretation [...] PERCENT (BEAKER) (test code = 2801) PROTHROMBIN TIME/[id number] 13:13:03 Test Item Value Reference Range Interpretation Comments PROTIME (BEAKER) (test code = 15.2 seconds 11.9-14.2 H 759) INR (BEAKER) (test code = 370) 1.28 <=5.90 RECOMMENDED COUMADIN/WARFARIN INR THERAPY RANGESSTANDARD DOSE: 2.0 - 3.0 Includes: PROPHYLAXIS for venous thrombosis, systemic embolization; TREATMENT for venous thrombosis and/or pulmonary embolus.HIGH RISK: Target INR is 2.5-3.5 for patients with mechanical heart valves.SARS-CoV2/RT-PCR ([facility]) 2022-06-21 13:03:14 Test Item Value Reference Interpretation Comments Range SARS-COV2/RT-PCR Negative Negative The SARS-Co V-2 (test code = target nucleic 36272-2) acids are not detected in thi s [...] revoked sooner. Fact Sheet for Healthcare Providers: https://www.[employer]/Documents/Xp ert%20Xpress%20SAR S%20CoV-2/Fact%20S heets/302-3802%20S ARS-COV-2%20HEALTH CARE%20PROVIDERS%2 0FACT%20SHEET.pdf Fact Sheet for Healthcare Patients: https://www.[employer]/Documents/Xp ert%20Xpress%20SAR S%20CoV-2/Fact%20S heets/302-3801%20S ARS-COV-2%20PATIEN T%20FACT%20SHEET.p df Lab Interpretation Normal (test code = 74901-9) [facility]2022-06-21 13:03:14 Test Item Value Reference Interpretation Comments Range SARS-COV2/RT-PCR Negative Negative The SARS-Co V-2 (test code = target nucleic 68959-1) acids are not detected in thi s [...] revoked sooner. Fact Sheet for Healthcare Providers: https://www.[employer]/Documents/Xp ert%20Xpress%20SAR S%20CoV-2/Fact%20S heets/302-3802%20S ARS-COV-2%20HEALTH CARE%20PROVIDERS%2 0FACT%20SHEET.pdf Fact Sheet for Healthcare Patients: https://www.[employer]/Documents/Xp ert%20Xpress%20SAR S%20CoV-2/Fact%20S heets/302-3801%20S ARS-COV-2%20PATIEN T%20FACT%20SHEET.p df Lab Interpretation Normal (test code = 22775-4) [facility])2022-06-21 13:03:14 Test Item Value Reference Range Interpretation Comments SARS-COV2/RT-PCR Negative Negative The SARS-Co V-2 target (test code = nucleic acids a re not 0656510) detected in thi s specimen. Negative result [...] individuals suspected of CO VID-19 by their [facility] provider. This test has been [...] revoked sooner. Fact Sheet for Healthcare Providers: https://www.[employer] m/Documents/Xpert%20Xpress%20SARS%20CoV-2/Fact%20Sheets/302-3802%34ZTZK-JLU-2%20 HEALTHCARE%20PROVIDERS%20FACT%20SHEET.pdf Fact Sheet for Healthcare Patients: https://www.[employer]/Documents/Xpert%20Xp ress%20SARS%20CoV-2/Fact%20Sheets/302-3801%44ICCE-VKH-1%20PATIENT%20FACT%20SHEET .pdfSURGICAL PATHOLOGY [id number] 19:37:37 Test Item Value Reference Range Interpretation Comments Case Report (test code Surgical Pathology ? ? = [id number]) ?Case: [id number] ? Authorizing Provider: ?Lawrence Peterson MD ?Collected: ? 06/03/2022 1042 ?Ordering Location: ? ? [facility] OR ? Received: ?06/03/2022 1154 ? Department ? Pathologist: ? Tatyana Monroe, ? MD PhD ? Specimen: ? ?OTHER, IVC FOREIGN BODY ? Final Diagnosis (test x0jpzHHgUBLzs0riAUHmjC code = 4958563638) FuZzEwMzNcZnRuYmpcdWMx IHtccnRmMVxlcGljMTAyMD OjZC0nsHkaqEv0sZyiGAZx pbJ7xIIhXDvtn6jrGZU9b0 ookgvtIKVbXXupFw6jiSGl uEdaLfInRYMuNOt2oJ33RT SsuR8reQGqPMl3GRQykOCx zbJlBhDdZBFcnRQuhDD0VS AnGC7cudfnJMivRSxlJTDb dhG4IULcfRDpY3HjYIBiVV 5zzexoUVO9JCtbGLCtWPK0 OmRiCLUau6Rrfvy0ApYhpL FyZFxwbGFpblxmczIwXHBh ciBBLiBIRUFSVCwgUkVNT1 ZBTCBPRiBJTkZFUklPUiBW KM4PKEODNzCmXz2MNJkUZl WPS5YOCbInhWJaHWUmJJNw AI1PXIMFUUzCBS5TETyVPO emEEZOJCYUDEDDAvDWV4SI VvQpT9pZVQPLZlBODmhMQz RPVQ3GWRUXDcQpHyoMLRGB RMvfGLMwIOSpGTZpK4Tvo3 XvYSpniEhiFFNsk99ar04b uOysb0ImJBkwc8WyBGFjk7 QpnUB2aD4oWP7hVYOechRm BWLkGPHAPGZjD05XRQFYQK 1gxGCwuOnrqkTiLTpfy8Zx N5HiGsIiBBuxztDrNEPvMn ejsdqpMIEvFBB3gxInOJEr DPnwLUWsUGevJl2srHLvoA lvXpMuYDUix6pnwaGNGOmp PwXcE477NEErLNwni7yrr7 QsRTOmiKIvt5T9FJPTnmmz pRq0z3taSgAaTlS3wVMmZG iyX0hzaxFzyTGuP9TbeZCl pGg3dRoeE75yh9C1CkzxA2 shZJWmFMXqP0JpXR2dLCNd Ccm4VED9ISF2HFAeAYSeH4 YxHF4sVINwdVOnOAv3h3zk qJfkRYAsDBS3i3wgCMvsys M0YB4gui6stJs3g4gvyeXx LNIqTPIcnSFSBBXdA7RryN ggCy3tfUx8kCkeEqlsRXP8 Cza1CN7cbc32vev7gApuRB ThspwqLvV8SOsrGHArxeet NWy6QLcuISHrwNF0INCziC PtI3YeYFWnOD6fbek4DMF1 POzxLOGvOoU2VISdkJWaEK CsaHcmCNyfm667NAT6HsNo WP8rE1Eiw0K6cQ7psQFiVW WccOEdCtEtNFTpec7xmLCe APplw2UyLBI5tdL6zGWgwG XaRVElTS18Bvmau4VyXore EXD0YEAylqHxm3Pfr2faXd GqcmTyL5exO4SeLULdLQHe ETQrEpPvmxBii8Rho9XzaZ ZcuUl8c4ydDYZlFYTpxEkd p6skADS2GXEiB7N8lUBfr2 vjMLpdDUTxnSW7qoB7RYOf fTQyG8LdoY0yECFwSO7jwr a8z0ovBHT5YTmcFIYoIhX4 abB0DKIljQOdPSDzsSfsBX ano171ZEP8IcUtYNSls7Lu O4ZpiShnM77alRvgZ75iCR KukPpncU2ctBoemF9tGaZf ZnMyNFxxbFxwbGFpblxmMV xmczIwXGxhbmcxMDMzXGhp X7xsCbApHIZxmNzhXHvwx9 NoXGYxXGNmMlxmczIwXHBh cuEVULeziuMekZYaw57pLB xseSByZXZpZXdlZCBhbGwg h2TrX4loVW9mC9DpiFPxnu DkyjIaJEzlQRFup3p6zJZx uWycv8KxuLIcFF85pvFyNI UdCRR1AKIso1eyRD78fhol UkGefX79wyNqyeLnSEYzo1 lcM1yujSQrn0Mth5LihdXc JSqnt9GhUG1adNXnbfnapC A8JUDaeFNzibUfagX4fJsg CSRomV5mzI1xcZhmuA1bGh CfPzMbJTwjCQ8iYGOxU4lu gARsSBZzNNExK7cbSdRxrA 4bxPjyTxfbicC5WHTkgf06 Final Diagnosis Comment z3eryKNoQAFrdVNhSYMxYm (test code = ownzTjBQVzmXEdI9Kwswpz [id number]) NEvqJN0xJH3ytIowxYAuaA PtUCLlSgPzo5rvg890jEFz e0tsZUCQbwvscEz2aRjcT6 9vw2T9KmbeG1doFIA2VWis cmDpdgMjDWWxuHC3SAkjlt PzPzK3PGkoMCLuWlK8JRBf cJItUBK8eZvcREWqwzznSi M8BZcsTOHvoeicXPl7VXsn NTAroBA7VSPpaTYaC7YmUR QhIS6blqw2MFP0KJxrUNIj XqN0YLHiiWGhTXJjkEbhJW mfm901CKB2JiRhFVRdkvSa pPhgtL8jNeHgCGnrCbEyX1 hjYnBhdDJccGFyIFRoZSBh Dt65ISCsjKGryX4bloNcpJ I7NXBoXOEvRJS4RifqH3Ef KOI3bgYldu9vyfEmuSGtaB 0aqHuizbAjoid0KSB9uHCl FBExybYfmxOzv7I1BVLte4 I4EEKwc7IyxGmcse3bB67i rGEgDRBuwGKdqPozor6qKH YgdGhlIHNwZWNpbWVuIGlz NJ1oCYAbVRYcn8Utn0VxCA RuepLmd11labgkdFhuYEDu DCAjiyItL6CwyOgdMPPaz0 VshAM3gX5qd6zjr9SjLVWl cn0= Clinical Information Acute deep vein (test code = thrombosis (DVT) of 8132469313) iliac vein of both lower extremities [I82.423] Gross Description (test y0hfiXGvBPEtiJHgWPZoGr code = 4779468840) ghhtZpKEMvxQUvF4Ovypwr HTjyZQ5zGH1krBduhDWkxX IiWRCsZkVjf4rle126lVXd o4vbHPEMstuxqEl3xGndY9 0gc0R0DkdsG54peAXtBNS4 MZHnMMDsqODmOOJfQFD1XE YceGZxK7lmIBRhTH3kdxqp ZDlgPNuhQUSebKV1DWJcxG PlS1NeQVUhVYfsMSAtqai2 FeLoHx1puQTeoHwrFAtuUl hcjHyjf6NohDSyMYyyTFKp CPNpAQikLIYrD3EHGRMdCm m5HBYtUHTrAeYAHPR1HwC6 EUCdIQGAOETqEAcnNLM5Hu kyIiBMUlIgODAwMDAwMDAw DRBiNT0kFAewfUWyJLcdXw jhYCmhT240XZitQJNgJ6Sr X1SxRIerHGT2UXUhQnLsPV DyXL1QFpUkTTS6ITMwLrWh XVu3MNg7UP1FCkRsSFLpUr E5FcEbCBSkQMk7IOaaDR1D SMA5PXDzLef6IUtfSER3FU SvHMm5TAAdBLvhaoJgBJtg YoujUMydQ88slWImAXnfoZ FpblxmczIwIFNQRUNJTUVO GJIvvWWxNIXeifEwo7OiTL hjsNvgVJNcMjQkoFwsqV3k TyMuYUNLtGGlqU1wifQXMX iwUSJkF4BeymAkOXBhFHMw IGxhYmVsbGVkIHdpdGggdG wwDLSknFyblmSwX1C1cbCt SV1sQNSCCFCemD9pWJNnJK FhMHQMLQYeraMyI80oQz8x iAoeRaGqW9W9RMWtAEXob5 5zhHE7pyBrAjHwHZ0rmKWf tZrsNO10qDDfzPHxfuplZX RqARCeG1WnUYPpiblgYFLq IS94KUdyDm1lKOewIC51FU JdLBvxD3Wnn3ChhGSqk34v dKJ3PO96TWfetFacFB5qgM 6kNJCfs1WuasIgHSSqKJOr BMYzzJGebg5xJYpwh9VvJO 6uLYooQLkyaAtqrI2qkgZa gIXpBCGfVBKxx9UeBxTCpH Eag3WlG3adRH2cbTJuOq6w VPiqz8FzPGN3ZD7mkpK9nC 9mQI0vpGhuTWtqGWAgdEVa ZFxmczIyXHBhclxzYTMwXG RftIVHb3CnZPJWbEdrICRA F7bvfSFrWTpiZXVNYHzER0 BBAEteQQRiV8OpQ0WcvtB7 u8zlxBhmw8DbnLVwCU4smX FyfQ== Disclaimer (test code = a5pdiIGsLKLnf0quUNCjwA [id number]) FuZzEwMzNcZnRuYmpcdWMx TLiwumSyLFvtl1PlN0SsKr AwMFxhbnNpXGRlZmxhbmcx GIWzUVX1rnLxHAWsAFxdOJ KoTPidRf1soHBuuBkgBfZa FXPjh9bxdcWWNOdtCaKfL0 98EHFhVClhy1yyj0FhKOAf yWAus5U8POAChujojKy0mF ezQ79di6C2IxcmB0ogRFPy KRPkC2ZaMZ8hUCTmHey1UM R7QUO3FOCiMMLdR5WtZR5q RCSmpJSvMGd5t6mzuLrwEW VyHXC6k5mkBKdnzrSySN8i hz1swOs6h0rhosKtDIJmZL XnaGORUNFeD3EdxKgtDt8b sSh9sYmjVlqiSTR7Geh7OC 4oea36bwj4aZteEMHzqiqo FdN0JRljKXFgkzauDWo1QV aaGQOduLJ6AFSnkFYrV5Jm WMWtXJ7lgla6SYZ0CAbfOK ObNlJ1DHEwqHBkGYJtzOch QEmkg934PSV3KpZuHL9rR7 Aud3R0yU5ipUBqOVVsdHMc YdIeSPSzym2mkXXkKEpls9 ScPZQ7daZ1dCSvvREiRUYc WV01Tjhsh6BuSjhvx5ReQ3 8cxLJ5QQwje1auIJ4oIdL7 kuInMSbzw2zjnW7eAsB7LD zsDT3tZK3tVDRuqF1shvjk XHBnYnJkcmhlYWRccGdicm ErRq1gwIbcXUR6AUbzE0zh tS6aFwP6AOanH6vhoW2wUV y6LAxawRU4ILVttP1rRY7d erste4fvJYwnGMqyEKDbea D1zcL3JISrtURcA4SgfA9p KUTyWK8qnzuuq1ctWCP5FH uvZYPhHZJ3EdTbRTQdy2Bx ykx1LuSkj8OkmITlPUwgC7 3df954CGLurnHgP7opgGAw fpxfpDRzupgvZLthqoN5TS IltxNnb6LnSAFdBAJ1MMhf KEfrpBVlJCFtxHlxn2puP1 RscGFyXHBsYWluXGYxXGZz MjBcbGFuZzEwMzNcaGljaF poZCxxKsCrLIOrBGbqX6rd SlQzB5AoGZCvOlFxtRBlV4 ggVGhpcyByZXBvcnQgbWF5 NTjkE3j0BHTupnVzmGn1xa DeFaZuIMVzHFU4WRghzBWm NFWkm2CickdpxSEuMd2wwS XsIPFaeN3nUPWvDWInBBea FA3njDh6GLPByVSswNYrHe MKHHLmAV14bhKuWZTNbbkm y1F6THxjBJHeb4QdlANnE0 dpy0KbHOJot84nNV4dr8U9 q1grOIM7ZW5ql9HdHOEjkR QdeZZeZJJpt6Ongtyyp9Nw TVVbgzUrj9AyFWHbffIjcB BrLCDnkwAbeh0ulnOqGHYo DSUfR6XvqcldhRvrksEjEB Mgtk5qgpEgURT6HICZQPPw CZHsf1CukV1jnGXTFDG2xH Icat0hpvEMqGYeRDDlqo80 FZGiCX9nK7tkWMMsQWPorn FliSJsb0QuJYBlbQD5vMIx WN6ALsIGk34rSGLsSZQRlr FjHGQccMlrbTO8geW9pD1r IChGREEpLlx+IFRoZSBGRE ZpRO2yswFqv7PonmVqlEmp DNGdcRWkm9ExvHOnn3FlpI vzh1FldEPywBQsBE2fNNYf clxwYXIgVVRNQiBMYWJvcm M2h9XpQZIrKHVeMIW8jOzd kkf3OYZqcI7bCTKdE0fafr iqARiaFMIji1XyzI2ooHVZ tOTxp3XpcFCbrMDYjLYzPA 0dpbEmJTdRVIfKUGI5qqYl YHYkp3FvPOmfP6keA71oqB nstQo7kWH0XEH3pN6dLry+ IFxwYXJccGFyIEFwcHJvcH MsQMNjwUvgrsHpL9RgpjCp aZ1lqRKdehQjCH3aJT0bA1 C9mBGqHLVbxlOlk2lsFEyz dmUgYmVlbiByZXZpZXdlZC Fco7TmVIojHRR5IVbdwxMa bmNsdWRpbmcgSCZFLCBTcG RtbBLgHDU1CEvxjeLjdpKn AM8boY0uyNznvB0rjLYuhN M0hjhnCHTpWOXioAxvBFAa FP5krPTcIBKhlqGAgWidcY JtpD4bR3BbGCLsTZVkwr5z ZKEnmD2bYVrxm9TxnhxiBJ UoQPNxSZEbllYzft7ePLEf xWHRIO5CUYpuyJXvg3Iasa ZiA4kEAXS8WAQxOmQnHipk VXZonWSvvUFoKTHctp95SF YfmC8ekAwlDPVwdP1uxZ5v eFwrxA7fZnFrGqSuQQpcDZ 1dXBRlK7cheYMgWHZwNPIt T5cnXmVfiO4gkPnuHWjeVn XuRyLeOLztYBZ6eY== Embedded Images (test code = 7022485181) [facility] METABOLIC PANEL (NA, K, CL, CO2, GLUCOSE, BUN, CREATININE, CA)2022-06-07 09:52:38 Test Item Value Reference Range Interpretation Comments NA (test code = 135 mmol/L 135-145 6043460691) K (test code = 4.0 mmol/L 3.5-5.0 3133147373) CL (test code = 104 mmol/L 98-108 9635673076) CO2 TOTAL (test code = 25 mmol/L 23-31 7591359256) AGAP (test code = 6 2-16 4146639243) BUN (test code = 16 mg/dL 7-23 6139473104) GLUCOSE (test code = 144 mg/dL 70-110 H 9961810142) CREATININE (test code = 1.10 mg/dL 0.60-1.25 2695427124) CALCIUM (test code = 8.4 mg/dL 8.6-10.6 L 6773108959) eGFR (test code = 68.5 mL/min/1.73m2 1226445967) DEWAYNE (test code = DEWAYNE) Association of [...] tests). Lab Interpretation Abnormal (test code = 77516-7) [facility] Test Item Value Reference Range Interpretation Comments MAGNESIUM (test code = 7717740020) 2.5 mg/dL 1.7-2.4 H Lab Interpretation (test code = Abnormal 55586-0) [facility] 09:[facility]38 Test Item Value Reference Range Interpretation Comments PHOSPHORUS (test code = 3936979026) 3.9 mg/dL 2.5-5.0 Lab Interpretation (test code = Normal 27123-1) [facility] WITH [id number] 12:15:07 Test Item Value Reference Range Interpretation Comments WBC (test code = 6.35 See_Comment [Automated 1990-2) message] The sy stem which generated this result transmitted reference range : 4.20 - 10.70 10*3/?L. The reference range was not used to interpret this result as normal/abnormal . RBC (test code = 2.65 See_Comment L [Automated 686-8) message] The sy stem which generated this [...] RDW-SD (test code = 51.5 fL 38.5-51.6 69618-1) RDW-CV (test code = 15.9 % 12.1-15.4 H 788-0) PLT (test code = 115 See_Comment L [Automated 777-3) message] The sy stem which generated this result transmitted reference range : 150 - 328 10*3/ ?L. The reference r mitra was not used to interpret this result as normal/abnormal . MPV (test code = 9.9 fL 9.8-13.0 92691-9) IPF % (test code = 2.9 % 1.2-10.7 Platelet count [id number]) measured by fluorescence method. NRBC/100 WBC (test 0.3 See_Comment [Automat ed code = 1493161002) message] The system which generated this result transmitted reference range : 0.0 - 10.0 /100 WBCs. The refer ence range was not u sed to interpret th is result as normal/abnormal . NRBC x10^3 (test code 0.02 See_Comment [Auto mated = 6473896329) message] The s ystem which generated this result transmitted reference range : 10*3/?L. The reference range was not used to interpret this result as normal/abnormal . GRAN MAT (NEUT) % 60.5 % (test code = 770-8) IMM GRAN % (test code 1.70 % = 4371587919) LYMPH % (test code = 24.7 % 736-9) MONO % (test code = 8.7 % 5905-5) EOS % (test code = 3.9 % 713-8) BASO % (test code = 0.5 % 706-2) GRAN MAT x10^3(ANC) 3.84 10*3/uL 1.99-6.95 (test code = 7473699499) IMM GRAN x10^3 (test 0.11 10*3/uL 0.00-0.06 H code = 8500783740) LYMPH x10^3 (test code 1.57 10*3/uL 1.09-3.23 = 731-0) MONO x10^3 (test code 0.55 10*3/uL 0.36-1.02 = 742-7) EOS x10^3 (test code = 0.25 10*3/uL 0.06-0.53 711-2) BASO x10^3 (test code 0.03 10*3/uL 0.01-0.09 = 704-7) Lab Interpretation Abnormal (test code = 63621-9) [facility] WITH [id number] 12:15:07 Test Item Value Reference Range Interpretation [...] RDW-SD (test code = 51.5 fL 38.5-51.6 77845-0) RDW-CV (test code = 15.9 % 12.1-15.4 H 788-0) PLT (test code = 115 See_Comment L [Automated 777-3) message] The sy stem which generated this result transmitted reference range : 150 - 328 10*3/ ?L. The reference r mitra was not used to interpret this result as normal/abnormal . MPV (test code = 9.9 fL 9.8-13.0 16772-2) IPF % (test code = 2.9 % 1.2-10.7 Platelet count [id number]) measured by fluorescence method. NRBC/100 WBC (test 0.3 See_Comment [Automat ed code = 5768032465) message] The system which generated this result transmitted reference range : 0.0 - 10.0 /100 WBCs. The refer ence range was not u sed to interpret th is result as normal/abnormal . NRBC x10^3 (test code 0.02 See_Comment [Auto mated = 0900800417) message] The s ystem which generated this result transmitted reference range : 10*3/?L. The reference range was not used to interpret this result as normal/abnormal . GRAN MAT (NEUT) % 60.5 % (test code = 770-8) IMM GRAN % (test code 1.70 % = 1959686325) LYMPH % (test code = 24.7 % 736-9) MONO % (test code = 8.7 % 5905-5) EOS % (test code = 3.9 % 713-8) BASO % (test code = 0.5 % 706-2) GRAN MAT x10^3(ANC) 3.84 10*3/uL 1.99-6.95 (test code = 5221682052) IMM GRAN x10^3 (test 0.11 10*3/uL 0.00-0.06 H code = 6598363847) LYMPH x10^3 (test code 1.57 10*3/uL 1.09-3.23 = 731-0) MONO x10^3 (test code 0.55 10*3/uL 0.36-1.02 = 742-7) EOS x10^3 (test code = 0.25 10*3/uL 0.06-0.53 711-2) BASO x10^3 (test code 0.03 10*3/uL 0.01-0.09 = 704-7) Lab Interpretation Abnormal (test code = 54993-3) [facility] Test Item Value Reference Range Interpretation Comments MAGNESIUM (test code = 9163067543) 2.4 mg/dL 1.7-2.4 Lab Interpretation (test code = Normal 88142-7) [facility] 11:[facility]:01 Test Item Value Reference Range Interpretation Comments PHOSPHORUS (test code = 2257885776) 4.1 mg/dL 2.5-5.0 Lab Interpretation (test code = Normal 10436-7) [facility] METABOLIC PANEL (NA, K, CL, CO2, GLUCOSE, BUN, CREATININE, CA)2022-06-05 11:43:01 Test Item Value Reference Range Interpretation Comments NA (test code = 137 mmol/L 135-145 2424864391) K (test code = 3.8 mmol/L 3.5-5.0 2672286487) CL (test code = 105 mmol/L 98-108 8253673951) CO2 TOTAL (test code = 28 mmol/L 23-31 8669019486) AGAP (test code = 4 2-16 7230486535) BUN (test code = 17 mg/dL 7-23 2123602855) GLUCOSE (test code = 86 mg/dL 70-110 3530023378) CREATININE (test code = 1.06 mg/dL 0.60-1.25 0615495302) CALCIUM (test code = 8.4 mg/dL 8.6-10.6 L 8292650669) eGFR (test code = 71.5 mL/min/1.73m2 6040273449) DEWAYNE (test code = DEWAYNE) Association of [...] tests). Lab Interpretation Abnormal (test code = 99222-1) [facility] 11:[facility]:01 Test Item Value Reference Range Interpretation Comments MAGNESIUM (test code = 9248124510) 2.4 mg/dL 1.7-2.4 Lab Interpretation (test code = Normal 97586-7) [facility] 11:43:01 Test Item Value Reference Range Interpretation Comments PHOSPHORUS (test code = 0963217216) 4.1 mg/dL 2.5-5.0 Lab Interpretation (test code = Normal 14384-1) [facility] (NA, K, CL, CO2, GLUCOSE, BUN, CREATININE, CA)2022-06-05 11:43:01 Test Item Value Reference Range Interpretation Comments NA (test code = 137 mmol/L 135-145 4348636858) K (test code = 3.8 mmol/L 3.5-5.0 7124746832) CL (test code = 105 mmol/L 98-108 3574943125) CO2 TOTAL (test code = 28 mmol/L 23-31 6278599726) AGAP (test code = 4 2-16 4412772392) BUN (test code = 17 mg/dL 7-23 5912865411) GLUCOSE (test code = 86 mg/dL 70-110 8763073132) CREATININE (test code = 1.06 mg/dL 0.60-1.25 5562027133) CALCIUM (test code = 8.4 mg/dL 8.6-10.6 L 0178933493) eGFR (test code = 71.5 mL/min/1.73m2 8755938094) DEWAYNE (test code = DEWAYNE) Association of [...] tests). Lab Interpretation Abnormal (test code = 07613-9) [facility] (ALB,T.PRO,BILI T,BU/BC,ALT,AST,ALK PHOS)2022-06-04 08:25:57 Test Item Value Reference Range Interpretation Comments TOTAL BILI (test code = 5437853173) 0.7 mg/dL 0.1-1.1 BILI UNCON (test code = 9795980329) 0.3 mg/dL 0.1-1.1 BILI CONJ (test code = 2552477496) 0.0 mg/dL 0.0-0.3 T PROTEIN (test code = 1263859461) 6.4 g/dL 6.3-8.2 ALBUMIN (test code = 1604162989) 3.7 g/dL 3.5-5.0 ALK PHOS (test code = 8876557763) 105 U/L 34-122 ALTv (test code = 1742-6) 71 U/L 5-50 H AST(SGOT) (test code = 0040441637) 51 U/L 13-40 H Lab Interpretation (test code = Abnormal 90745-4) [facility] (38[facility] (ALB,T.PRO,BILI T,BU/BC,ALT,AST,ALK PHOS)2022-06-04 08:25:57 Test Item Value Reference Range Interpretation Comments TOTAL BILI (test code = 0517184165) 0.7 mg/dL 0.1-1.1 BILI UNCON (test code = 6332716854) 0.3 mg/dL 0.1-1.1 BILI CONJ (test code = 9796623310) 0.0 mg/dL 0.0-0.3 T PROTEIN (test code = 4582975079) 6.4 g/dL 6.3-8.2 ALBUMIN (test code = 4406664153) 3.7 g/dL 3.5-5.0 ALK PHOS (test code = 0263709539) 105 U/L 34-122 ALTv (test code = 1742-6) 71 U/L 5-50 H AST(SGOT) (test code = 7727424551) 51 U/L 13-40 H Lab Interpretation (test code = Abnormal 99360-7) [facility] [id number] 06:14:08 Test Item Value Reference Range Interpretation Comments TROPONIN I (test code = 0.027 ng/mL <=0.034 4416675685) DEWAYNE (test code = DEWAYNE) Reference (Normal) [...] biotin. Lab Interpretation Normal (test code = 47075-3) [facility] [id number] 06:14:08 Test Item Value Reference Range Interpretation Comments TROPONIN I (test code = 0.027 ng/mL <=0.034 5793059249) DEWAYNE (test code = DEWAYNE) Reference (Normal) [...] biotin. Lab Interpretation Normal (test code = 46039-3) [facility] WITH [id number] 05:33:25 Test Item Value Reference Range Interpretation [...] RDW-SD (test code = 50.4 fL 38.5-51.6 84673-2) RDW-CV (test code = 15.9 % 12.1-15.4 H 788-0) PLT (test code = 121 See_Comment L [Automated 777-3) message] The sy stem which generated this result transmitted reference range : 150 - 328 10*3/ ?L. The reference r mitra was not used to interpret this result as normal/abnormal . MPV (test code = 8.7 fL 9.8-13.0 L 72000-1) IPF % (test code = 2.3 % 1.2-10.7 Platelet count 7288397698) measured by fluorescence method. NRBC/100 WBC (test 0.6 See_Comment [Automat ed code = 0001618143) message] The system which generated this result transmitted reference range : 0.0 - 10.0 /100 WBCs. The refer ence range was not u sed to interpret th is result as normal/abnormal . NRBC x10^3 (test code 0.06 See_Comment [Auto mated = 8872034531) message] The s ystem which generated this result transmitted reference range : 10*3/?L. The reference range was not used to interpret this result as normal/abnormal . GRAN MAT (NEUT) % 80.9 % (test code = 770-8) IMM GRAN % (test code 4.80 % = 5339213565) LYMPH % (test code = 8.6 % 736-9) MONO % (test code = 5.6 % 5905-5) EOS % (test code = 0.0 % 713-8) BASO % (test code = 0.1 % 706-2) GRAN MAT x10^3(ANC) 7.91 10*3/uL 1.99-6.95 H (test code = 3273114935) IMM GRAN x10^3 (test 0.47 10*3/uL 0.00-0.06 H code = 9549004350) LYMPH x10^3 (test code 0.84 10*3/uL 1.09-3.23 L = 731-0) MONO x10^3 (test code 0.55 10*3/uL 0.36-1.02 = 742-7) EOS x10^3 (test code = 0.06-0.53 L 711-2) BASO x10^3 (test code 0.01-0.09 = 704-7) Lab Interpretation Abnormal (test code = 62064-4) [facility] WITH [id number] 05:33:25 Test Item Value Reference Range Interpretation [...] RDW-SD (test code = 50.4 fL 38.5-51.6 96670-3) RDW-CV (test code = 15.9 % 12.1-15.4 H 788-0) PLT (test code = 121 See_Comment L [Automated 777-3) message] The sy stem which generated this result transmitted reference range : 150 - 328 10*3/ ?L. The reference r mitra was not used to interpret this result as normal/abnormal . MPV (test code = 8.7 fL 9.8-13.0 L 17720-3) IPF % (test code = 2.3 % 1.2-10.7 Platelet count 6393570033) measured by fluorescence method. NRBC/100 WBC (test 0.6 See_Comment [Automat ed code = 2690384901) message] The system which generated this result transmitted reference range : 0.0 - 10.0 /100 WBCs. The refer ence range was not u sed to interpret th is result as normal/abnormal . NRBC x10^3 (test code 0.06 See_Comment [Auto mated = 0331207159) message] The s ystem which generated this result transmitted reference range : 10*3/?L. The reference range was not used to interpret this result as normal/abnormal . GRAN MAT (NEUT) % 80.9 % (test code = 770-8) IMM GRAN % (test code 4.80 % = 5361884590) LYMPH % (test code = 8.6 % 736-9) MONO % (test code = 5.6 % 5905-5) EOS % (test code = 0.0 % 713-8) BASO % (test code = 0.1 % 706-2) GRAN MAT x10^3(ANC) 7.91 10*3/uL 1.99-6.95 H (test code = 0323638202) IMM GRAN x10^3 (test 0.47 10*3/uL 0.00-0.06 H code = 0991008055) LYMPH x10^3 (test code 0.84 10*3/uL 1.09-3.23 L = 731-0) MONO x10^3 (test code 0.55 10*3/uL 0.36-1.02 = 742-7) EOS x10^3 (test code = 0.06-0.53 L 711-2) BASO x10^3 (test code 0.01-0.09 = 704-7) Lab Interpretation Abnormal (test code = 87114-4) [facility] METABOLIC PANEL (NA, K, CL, CO2, GLUCOSE, BUN, CREATININE, CA)2022-06-04 05:32:04 Test Item Value Reference Range Interpretation Comments NA (test code = 136 mmol/L 135-145 3817051431) K (test code = 4.1 mmol/L 3.5-5.0 8268874797) CL (test code = 104 mmol/L 98-108 5131219323) CO2 TOTAL (test code = 25 mmol/L 23-31 0336571842) AGAP (test code = 7 2-16 9302527242) BUN (test code = 19 mg/dL 7-23 7923534194) GLUCOSE (test code = 166 mg/dL 70-110 H 4438143883) CREATININE (test code = 1.00 mg/dL 0.60-1.25 7825524017) CALCIUM (test code = 8.8 mg/dL 8.6-10.6 5654077905) eGFR (test code = 76.5 mL/min/1.73m2 2973818885) DEWAYNE (test code = DEWAYNE) Association of [...] tests). Lab Interpretation Abnormal (test code = 35098-8) [facility] METABOLIC PANEL (NA, K, CL, CO2, GLUCOSE, BUN, CREATININE, CA)2022-06-04 05:32:04 Test Item Value Reference Range Interpretation Comments NA (test code = 136 mmol/L 135-145 1537727646) K (test code = 4.1 mmol/L 3.5-5.0 0583205896) CL (test code = 104 mmol/L 98-108 6137526779) CO2 TOTAL (test code = 25 mmol/L 23-31 6326061117) AGAP (test code = 7 2-16 7057293821) BUN (test code = 19 mg/dL 7-23 3859297917) GLUCOSE (test code = 166 mg/dL 70-110 H 3654639279) CREATININE (test code = 1.00 mg/dL 0.60-1.25 1009388157) CALCIUM (test code = 8.8 mg/dL 8.6-10.6 5523995701) eGFR (test code = 76.5 mL/min/1.73m2 4612872509) DEWAYNE (test code = DEWAYNE) Association of [...] tests). Lab Interpretation Abnormal (test code = 33859-4) [facility] 05:24:43 Test Item Value Reference Range Interpretation Comments APTT Patient (test code 105 See_Comment HH [Au tomated message] = 8833-2) The system [employer] generated this result transmitted ref erence range: 26 - 36 Seconds. The reference range was not used to int erpret this result as normal/abnormal . Lab Interpretation (test Abnormal code = 40836-9) [facility]2022-06-04 05:24:43 Test Item Value Reference Range Interpretation Comments APTT Patient (test code 105 See_Comment HH [Au tomated message] = 3173-2) The system [employer] generated this result transmitted ref erence range: 26 - 36 Seconds. The reference range was not used to int erpret this result as normal/abnormal . Lab Interpretation (test Abnormal code = 93374-3) [facility]CA2[facility]2022-06-04 02:57:07 Test Item Value Reference Range Interpretation Comments PH (test code = 2) 7.31 7.35-7.45 L PCO2 (test code = 42 See_Comment [Automate d message] [id number]) The system [employer] generated this result transmit elizabeth reference range : 35 - 45 mmHg. The reference range was not used to interpret this result as normal/abnormal . PO2 (test code = 144 See_Comment H [Automated message] [id number]) The system [employer] generated this result transmit elizabeth reference range : 80 - 100 mmHg. The reference range was not used to interpret this result as normal/abnormal . HCO3 (test code = 21 See_Comment L [Automate d message] [id number]) The system [employer] generated this result transmit elizabeth reference range : 22 - 26 mEq/L. The reference range was not used to interpret this result as normal/abnormal . BE (test code = -4.8 See_Comment L [Automated message] [id number]) The system [employer] generated this result transmit elizabeth reference range : -3.0 - 3.0 mEq/ L. The reference r mitra was not used to interpret this result as normal/abnormal . THB (test code = 9.6 g/dL 13.5-18.0 L [id number]) %O2HB (test code = 98.4 % 94.0-99.0 9309770047) %COHB ART (test code = 0.1 % 0.0-1.5 3469008386) %METHB ART (test code = 0.1 % 0.4-1.5 L 6369778043) VOL%O2 ART (test code = 13.6 % 15.0-23.0 L QUES [id number]) NA (test code = 133 mmol/L 135-145 L 6596682981) K+ (test code = 4.6 mmol/L 3.5-5.0 7891297591) AC CA IONZ (test code = 4.40 mg/dL 4.50-5.30 L 2775667268) GLUCOSE (test code = 148 mg/dL 70-110 H 1864132054) Lab Interpretation Abnormal (test code = 45183-2) [facility]-06-04 02:57:07 Test Item Value Reference Range Interpretation Comments PH (test code = 2) 7.31 7.35-7.45 L PCO2 (test code = 42 See_Comment [Automate d message] [id number]) The system [employer] generated this result transmit elizabeth reference range : 35 - 45 mmHg. The reference range was not used to interpret this result as normal/abnormal . PO2 (test code = 144 See_Comment H [Automated message] [id number]) The system [employer] generated this result transmit elizabeth reference range : 80 - 100 mmHg. The reference range was not used to interpret this result as normal/abnormal . HCO3 (test code = 21 See_Comment L [Automate d message] [id number]) The system [employer] generated this result transmit elizabeth reference range : 22 - 26 mEq/L. The reference range was not used to interpret this result as normal/abnormal . BE (test code = -4.8 See_Comment L [Automated message] [id number]) The system [employer] generated this result transmit elizabeth reference range : -3.0 - 3.0 mEq/ L. The reference r mitra was not used to interpret this result as normal/abnormal . THB (test code = 9.6 g/dL 13.5-18.0 L [id number]) %O2HB (test code = 98.4 % 94.0-99.0 9395871198) %COHB ART (test code = 0.1 % 0.0-1.5 9802177039) %METHB ART (test code = 0.1 % 0.4-1.5 L 3999584418) VOL%O2 ART (test code = 13.6 % 15.0-23.0 L QUES 6081521237) NA (test code = 133 mmol/L 135-145 L 0991650846) K+ (test code = 4.6 mmol/L 3.5-5.0 2643630943) AC CA IONZ (test code = 4.40 mg/dL 4.50-5.30 L 0474332533) GLUCOSE (test code = 148 mg/dL 70-110 H 1487806862) Lab Interpretation Abnormal (test code = 69853-1) [facility]-06-04 02:55:52 Test Item Value Reference Range Interpretation Comments PH (test code = 2) 7.31 7.35-7.45 L PCO2 (test code = 38 See_Comment [Automate d message] [id number]) The system [employer] generated this result transmit elizabeth reference range : 35 - 45 mmHg. The reference range was not used to interpret this result as normal/abnormal . PO2 (test code = 180 See_Comment H [Automated message] [id number]) The system [employer] generated this result transmit elizabeth reference range : 80 - 100 mmHg. The reference range was not used to interpret this result as normal/abnormal . HCO3 (test code = 19 See_Comment L [Automate d message] [id number]) The system [employer] generated this result transmit elizabeth reference range : 22 - 26 mEq/L. The reference range was not used to interpret this result as normal/abnormal . BE (test code = -7.2 See_Comment L [Automated message] [id number]) The system [employer] generated this result transmit elizabeth reference range : -3.0 - 3.0 mEq/ L. The reference r mitra was not used to interpret this result as normal/abnormal . THB (test code = 8.4 g/dL 13.5-18.0 L [id number]) %O2HB (test code = 98.1 % 94.0-99.0 9850613965) %COHB ART (test code = 0.4 % 0.0-1.5 6506898832) %METHB ART (test code = 0.3 % 0.4-1.5 L 8703965055) VOL%O2 ART (test code = 12.0 % 15.0-23.0 L QUES 4687761153) NA (test code = 135 mmol/L 135-145 0875598912) K+ (test code = 4.1 mmol/L 3.5-5.0 7338267571) AC CA IONZ (test code = 4.90 mg/dL 4.50-5.30 7633830645) GLUCOSE (test code = 128 mg/dL 70-110 H 6611528042) Lab Interpretation Abnormal (test code = 78755-4) [facility]-06-04 02:55:52 Test Item Value Reference Range Interpretation Comments PH (test code = 2) 7.31 7.35-7.45 L PCO2 (test code = 38 See_Comment [Automate d message] [id number]) The system Joshfire generated this result transmit elizabeth reference range : 35 - 45 mmHg. The reference range was not used to interpret this result as normal/abnormal . PO2 (test code = 180 See_Comment H [Automated message] [id number]) The system [employer] generated this result transmit elizabeth reference range : 80 - 100 mmHg. The reference range was not used to interpret this result as normal/abnormal . HCO3 (test code = 19 See_Comment L [Automate d message] 0075039676) The system [employer] generated this result transmit elizabeth reference range : 22 - 26 mEq/L. The reference range was not used to interpret this result as normal/abnormal . BE (test code = -7.2 See_Comment L [Automated message] 6556279778) The system [employer] generated this result transmit elizabeth reference range : -3.0 - 3.0 mEq/ L. The reference r mitra was not used to interpret this result as normal/abnormal . THB (test code = 8.4 g/dL 13.5-18.0 L 9553332259) %O2HB (test code = 98.1 % 94.0-99.0 7335254612) %COHB ART (test code = 0.4 % 0.0-1.5 0947603733) %METHB ART (test code = 0.3 % 0.4-1.5 L 1697105208) VOL%O2 ART (test code = 12.0 % 15.0-23.0 L QUES 0048853336) NA (test code = 135 mmol/L 135-145 9506472206) K+ (test code = 4.1 mmol/L 3.5-5.0 5711938721) AC CA IONZ (test code = 4.90 mg/dL 4.50-5.30 0506987460) GLUCOSE (test code = 128 mg/dL 70-110 H 0527573514) Lab Interpretation Abnormal (test code = 36508-6) [facility] [id number] 13:22:00 Test Item Value Reference Range Interpretation Comments ABO & RH (test code = 20) AB POSITIVE IAT (test code = 1185) Negative [facility] [id number] 13:22:00 Test Item Value Reference Range Interpretation Comments ABO & RH (test code = 20) AB POSITIVE IAT (test code = 1185) Negative [facility] [id number] 11:35:29 Test Item Value Reference Range Interpretation Comments WBC (test code = 11.02 See_Comment H [Automated 6690-2) message] The sy stem which generated this result transmitted reference range : 4.20 - 10.70 10*3/?L. The reference range was not used to interpret this result as normal/abnormal . RBC (test code = 3.21 See_Comment L [Automated 279-8) message] The sy stem which generated this [...] RDW-SD (test code = 50.8 fL 38.5-51.6 49777-7) RDW-CV (test code = 15.9 % 12.1-15.4 H 788-0) PLT (test code = 265 See_Comment [Automated 777-3) message] The sy stem which generated this result transmitted reference range : 150 - 328 10*3/ ?L. The reference r mitra was not used to interpret this result as normal/abnormal . MPV (test code = 9.0 fL 9.8-13.0 L 24473-6) NRBC/100 WBC (test 0.5 See_Comment [Automat ed code = 5437027053) message] The system which generated this result transmitted reference range : 0.0 - 10.0 /100 WBCs. The refer ence range was not u sed to interpret th is result as normal/abnormal . NRBC x10^3 (test code 0.06 See_Comment [Auto mated = 7185813921) message] The s ystem which generated this result transmitted reference range : 10*3/?L. The reference range was not used to interpret this result as normal/abnormal . GRAN MAT (NEUT) % 67.4 % (test code = 770-8) IMM GRAN % (test code 5.90 % = 5518986772) LYMPH % (test code = 13.6 % 736-9) MONO % (test code = 8.5 % 5905-5) EOS % (test code = 4.1 % 713-8) BASO % (test code = 0.5 % 706-2) GRAN MAT x10^3(ANC) 7.42 10*3/uL 1.99-6.95 H (test code = 2128312667) IMM GRAN x10^3 (test 0.65 10*3/uL 0.00-0.06 H code = 5715734364) LYMPH x10^3 (test code 1.50 10*3/uL 1.09-3.23 = 731-0) MONO x10^3 (test code 0.94 10*3/uL 0.36-1.02 = 742-7) EOS x10^3 (test code = 0.45 10*3/uL 0.06-0.53 711-2) BASO x10^3 (test code 0.06 10*3/uL 0.01-0.09 = 704-7) Lab Interpretation Abnormal (test code = 04944-6) [facility] WITH [id number] 11:35:29 Test Item Value Reference Range Interpretation [...] RDW-SD (test code = 50.8 fL 38.5-51.6 88947-7) RDW-CV (test code = 15.9 % 12.1-15.4 H 788-0) PLT (test code = 265 See_Comment [Automated 777-3) message] The sy stem which generated this result transmitted reference range : 150 - 328 10*3/ ?L. The reference r mitra was not used to interpret this result as normal/abnormal . MPV (test code = 9.0 fL 9.8-13.0 L 38538-7) NRBC/100 WBC (test 0.5 See_Comment [Automat ed code = 7654619335) message] The system which generated this result transmitted reference range : 0.0 - 10.0 /100 WBCs. The refer ence range was not u sed to interpret th is result as normal/abnormal . NRBC x10^3 (test code 0.06 See_Comment [Auto mated = 0211777351) message] The s ystem which generated this result transmitted reference range : 10*3/?L. The reference range was not used to interpret this result as normal/abnormal . GRAN MAT (NEUT) % 67.4 % (test code = 770-8) IMM GRAN % (test code 5.90 % = 9065327154) LYMPH % (test code = 13.6 % 736-9) MONO % (test code = 8.5 % 5905-5) EOS % (test code = 4.1 % 713-8) BASO % (test code = 0.5 % 706-2) GRAN MAT x10^3(ANC) 7.42 10*3/uL 1.99-6.95 H (test code = 2029936559) IMM GRAN x10^3 (test 0.65 10*3/uL 0.00-0.06 H code = 7441919904) LYMPH x10^3 (test code 1.50 10*3/uL 1.09-3.23 = 731-0) MONO x10^3 (test code 0.94 10*3/uL 0.36-1.02 = 742-7) EOS x10^3 (test code = 0.45 10*3/uL 0.06-0.53 711-2) BASO x10^3 (test code 0.06 10*3/uL 0.01-0.09 = 704-7) Lab Interpretation Abnormal (test code = 14444-5) [facility] 11:30:46 Test Item Value Reference Range Interpretation Comments MAGNESIUM (test code = 4283278595) 2.4 mg/dL 1.7-2.4 Lab Interpretation (test code = Normal 50962-6) [facility] 11:30:46 Test Item Value Reference Range Interpretation Comments PHOSPHORUS (test code = 2847603474) 4.8 mg/dL 2.5-5.0 Lab Interpretation (test code = Normal 73412-1) [facility] (NA, K, CL, CO2, GLUCOSE, BUN, CREATININE, CA)2022-06-03 11:30:46 Test Item Value Reference Range Interpretation Comments NA (test code = 136 mmol/L 135-145 1350058856) K (test code = 4.2 mmol/L 3.5-5.0 0916774293) CL (test code = 104 mmol/L 98-108 5808923531) CO2 TOTAL (test code 26 mmol/L 23-31 = 7312029323) AGAP (test code = 6 2-16 5787245966) BUN (test code = 18 mg/dL 7-23 5310291737) GLUCOSE (test code = 103 mg/dL 70-110 9321507861) CREATININE (test code 1.08 mg/dL 0.60-1.25 = 2159585502) CALCIUM (test code = 8.7 mg/dL 8.6-10.6 8908233450) eGFR (test code = 70.0 mL/min/1.73m2 3366693999) DEWAYNE (test code = DEWAYNE) Association of [...] or urine or abnormalities in imaging tests). [facility] 11:30:46 Test Item Value Reference Range Interpretation Comments MAGNESIUM (test code = 7588863263) 2.4 mg/dL 1.7-2.4 Lab Interpretation (test code = Normal 50994-4) [facility] 11:30:46 Test Item Value Reference Range Interpretation Comments PHOSPHORUS (test code = 2578039507) 4.8 mg/dL 2.5-5.0 Lab Interpretation (test code = Normal 03943-1) [facility] (NA, K, CL, CO2, GLUCOSE, BUN, CREATININE, CA)2022-06-03 11:30:46 Test Item Value Reference Range Interpretation Comments NA (test code = 136 mmol/L 135-145 5583066929) K (test code = 4.2 mmol/L 3.5-5.0 0365440887) CL (test code = 104 mmol/L 98-108 4672935938) CO2 TOTAL (test code 26 mmol/L 23-31 = 6823518515) AGAP (test code = 6 2-16 0255762154) BUN (test code = 18 mg/dL 7-23 3818014644) GLUCOSE (test code = 103 mg/dL 70-110 6097310559) CREATININE (test code 1.08 mg/dL 0.60-1.25 = 5418497614) CALCIUM (test code = 8.7 mg/dL 8.6-10.6 6184303948) eGFR (test code = 70.0 mL/min/1.73m2 1133381342) DEWAYNE (test code = DEWAYNE) Association of [...] or urine or abnormalities in imaging tests). [facility] (for use with Heparin Drip)2022-06-03 11:15:05 Test Item Value Reference Range Interpretation Comments APTT Patient (test code 52 See_Comment H [Au tomated message] = 3173-2) The system Joshfire generated this result transmitted ref erence range: 26 - 36 Seconds. The reference range was not used to int erpret this result as normal/abnormal . Lab Interpretation (test Abnormal code = 07552-5) [facility] (for use with Heparin Drip)2022-06-03 11:15:05 Test Item Value Reference Range Interpretation Comments APTT Patient (test code 52 See_Comment H [Au tomated message] = 3173-2) The system [employer] generated this result transmitted ref erence range: 26 - 36 Seconds. The reference range was not used to int erpret this result as normal/abnormal . Lab Interpretation (test Abnormal code = 68117-6) [facility] METABOLIC PANEL (NA, K, CL, CO2, GLUCOSE, BUN, CREATININE, CA)2022-06-02 13:56:04 Test Item Value Reference Range Interpretation Comments NA (test code = 137 mmol/L 135-145 8397363873) K (test code = 4.4 mmol/L 3.5-5.0 4432017390) CL (test code = 105 mmol/L 98-108 5728977698) CO2 TOTAL (test code 27 mmol/L 23-31 = 9397059248) AGAP (test code = 5 2-16 9653918665) BUN (test code = 19 mg/dL 7-23 9728418326) GLUCOSE (test code = 92 mg/dL 70-110 1342910655) CREATININE (test code 0.96 mg/dL 0.60-1.25 = 0632631786) CALCIUM (test code = 8.7 mg/dL 8.6-10.6 3907741731) eGFR (test code = 80.2 mL/min/1.73m2 7525756972) DEWAYNE (test code = DEWAYNE) Association of [...] or urine or abnormalities in imaging tests). [facility] METABOLIC PANEL (NA, K, CL, CO2, GLUCOSE, BUN, CREATININE, CA)2022-06-02 13:56:04 Test Item Value Reference Range Interpretation Comments NA (test code = 137 mmol/L 135-145 4913896033) K (test code = 4.4 mmol/L 3.5-5.0 9577076707) CL (test code = 105 mmol/L 98-108 9215910135) CO2 TOTAL (test code 27 mmol/L 23-31 = 6775548721) AGAP (test code = 5 2-16 6633890432) BUN (test code = 19 mg/dL 7-23 1038490414) GLUCOSE (test code = 92 mg/dL 70-110 7845746288) CREATININE (test code 0.96 mg/dL 0.60-1.25 = 2718312378) CALCIUM (test code = 8.7 mg/dL 8.6-10.6 3450604643) eGFR (test code = 80.2 mL/min/1.73m2 7538483269) DEWAYNE (test code = DEWAYNE) Association of [...] or urine or abnormalities in imaging tests). [facility] WITH [id number] 11:30:12 Test Item Value Reference Range Interpretation [...] RDW-SD (test code = 50.1 fL 38.5-51.6 13009-5) RDW-CV (test code = 15.8 % 12.1-15.4 H 788-0) PLT (test code = 239 See_Comment [Automated 777-3) message] The sy stem which generated this result transmitted reference range : 150 - 328 10*3/ ?L. The reference r mitra was not used to interpret this result as normal/abnormal . MPV (test code = 9.1 fL 9.8-13.0 L 30957-7) NRBC/100 WBC (test 0.8 See_Comment [Automat ed code = 5377098095) message] The system which generated this result transmitted reference range : 0.0 - 10.0 /100 WBCs. The refer ence range was not u sed to interpret th is result as normal/abnormal . NRBC x10^3 (test code 0.07 See_Comment [Auto mated = 8172791084) message] The s ystem which generated this result transmitted reference range : 10*3/?L. The reference range was not used to interpret this result as normal/abnormal . GRAN MAT (NEUT) % 56.4 % (test code = 770-8) IMM GRAN % (test code 6.70 % = 6731529575) LYMPH % (test code = 23.9 % 736-9) MONO % (test code = 7.3 % 5905-5) EOS % (test code = 4.9 % 713-8) BASO % (test code = 0.8 % 706-2) GRAN MAT x10^3(ANC) 4.93 10*3/uL 1.99-6.95 (test code = 5744198655) IMM GRAN x10^3 (test 0.59 10*3/uL 0.00-0.06 H code = 0899976495) LYMPH x10^3 (test code 2.09 10*3/uL 1.09-3.23 = 731-0) MONO x10^3 (test code 0.64 10*3/uL 0.36-1.02 = 742-7) EOS x10^3 (test code = 0.43 10*3/uL 0.06-0.53 711-2) BASO x10^3 (test code 0.07 10*3/uL 0.01-0.09 = 704-7) Lab Interpretation Abnormal (test code = 40221-1) [facility] WITH [id number] 11:30:12 Test Item Value Reference Range Interpretation Comments WBC (test code = 8.75 See_Comment [Automated 9090-2) message] The sy stem which generated this result transmitted reference range : 4.20 - 10.70 10*3/?L. The reference range was not used to interpret this result as normal/abnormal . RBC (test code = 3.25 See_Comment L [Automated 939-8) message] The sy stem which generated this [...] RDW-SD (test code = 50.1 fL 38.5-51.6 89657-0) RDW-CV (test code = 15.8 % 12.1-15.4 H 788-0) PLT (test code = 239 See_Comment [Automated 777-3) message] The sy stem which generated this result transmitted reference range : 150 - 328 10*3/ ?L. The reference r mitra was not used to interpret this result as normal/abnormal . MPV (test code = 9.1 fL 9.8-13.0 L 43038-0) NRBC/100 WBC (test 0.8 See_Comment [Automat ed code = 1509771486) message] The system which generated this result transmitted reference range : 0.0 - 10.0 /100 WBCs. The refer ence range was not u sed to interpret th is result as normal/abnormal . NRBC x10^3 (test code 0.07 See_Comment [Auto mated = 9876573322) message] The s ystem which generated this result transmitted reference range : 10*3/?L. The reference range was not used to interpret this result as normal/abnormal . GRAN MAT (NEUT) % 56.4 % (test code = 770-8) IMM GRAN % (test code 6.70 % = 2629666349) LYMPH % (test code = 23.9 % 736-9) MONO % (test code = 7.3 % 5905-5) EOS % (test code = 4.9 % 713-8) BASO % (test code = 0.8 % 706-2) GRAN MAT x10^3(ANC) 4.93 10*3/uL 1.99-6.95 (test code = 0543844958) IMM GRAN x10^3 (test 0.59 10*3/uL 0.00-0.06 H code = 4966352218) LYMPH x10^3 (test code 2.09 10*3/uL 1.09-3.23 = 731-0) MONO x10^3 (test code 0.64 10*3/uL 0.36-1.02 = 742-7) EOS x10^3 (test code = 0.43 10*3/uL 0.06-0.53 711-2) BASO x10^3 (test code 0.07 10*3/uL 0.01-0.09 = 704-7) Lab Interpretation Abnormal (test code = 61776-3) [facility] 11:16:48 Test Item Value Reference Range Interpretation Comments MAGNESIUM (test code = 2228135322) 2.3 mg/dL 1.7-2.4 Lab Interpretation (test code = Normal 11035-7) [facility] 11:16:48 Test Item Value Reference Range Interpretation Comments PHOSPHORUS (test code = 1505415942) 4.8 mg/dL 2.5-5.0 Lab Interpretation (test code = Normal 64970-7) [facility] Test Item Value Reference Range Interpretation Comments MAGNESIUM (test code = 1328981106) 2.3 mg/dL 1.7-2.4 Lab Interpretation (test code = Normal 78183-0) [facility] 11:16:48 Test Item Value Reference Range Interpretation Comments PHOSPHORUS (test code = 1134255486) 4.8 mg/dL 2.5-5.0 Lab Interpretation (test code = Normal 97287-2) [facility] WITH [id number] 11:58:20 Test Item Value Reference Range Interpretation Comments WBC (test code = 9.20 See_Comment [Automated 2409-2) message] The sy stem which generated this result transmitted reference range : 4.20 - 10.70 10*3/?L. The reference range was not used to interpret this result as normal/abnormal . RBC (test code = 3.18 See_Comment L [Automated 307-4) message] The sy stem which generated this [...] RDW-SD (test code = 48.3 fL 38.5-51.6 22982-4) RDW-CV (test code = 15.2 % 12.1-15.4 788-0) PLT (test code = 181 See_Comment [Automated 777-3) message] The sy stem which generated this result transmitted reference range : 150 - 328 10*3/ ?L. The reference r mitra was not used to interpret this result as normal/abnormal . MPV (test code = 9.4 fL 9.8-13.0 L 52867-4) NRBC/100 WBC (test 0.3 See_Comment [Automat ed code = 0378935742) message] The system which generated this result transmitted reference range : 0.0 - 10.0 /100 WBCs. The refer ence range was not u sed to interpret th is result as normal/abnormal . NRBC x10^3 (test code 0.03 See_Comment [Auto mated = 8181300209) message] The s ystem which generated this result transmitted reference range : 10*3/?L. The reference range was not used to interpret this result as normal/abnormal . GRAN MAT (NEUT) % 59.7 % (test code = 770-8) IMM GRAN % (test code 5.80 % = 6361692095) LYMPH % (test code = 21.3 % 736-9) MONO % (test code = 8.7 % 5905-5) EOS % (test code = 4.1 % 713-8) BASO % (test code = 0.4 % 706-2) GRAN MAT x10^3(ANC) 5.49 10*3/uL 1.99-6.95 (test code = 9361075191) IMM GRAN x10^3 (test 0.53 10*3/uL 0.00-0.06 H code = 5475116977) LYMPH x10^3 (test code 1.96 10*3/uL 1.09-3.23 = 731-0) MONO x10^3 (test code 0.80 10*3/uL 0.36-1.02 = 742-7) EOS x10^3 (test code = 0.38 10*3/uL 0.06-0.53 711-2) BASO x10^3 (test code 0.04 10*3/uL 0.01-0.09 = 704-7) Lab Interpretation Abnormal (test code = 99896-7) [facility] WITH [id number] 11:58:20 Test Item Value Reference Range Interpretation Comments WBC (test code = 9.20 See_Comment [Automated 0287-2) message] The sy stem which generated this result transmitted reference range : 4.20 - 10.70 10*3/?L. The reference range was not used to interpret this result as normal/abnormal . RBC (test code = 3.18 See_Comment L [Automated 999-8) message] The sy stem which generated this [...] RDW-SD (test code = 48.3 fL 38.5-51.6 12407-5) RDW-CV (test code = 15.2 % 12.1-15.4 788-0) PLT (test code = 181 See_Comment [Automated 077-3) message] The sy stem which generated this result transmitted reference range : 150 - 328 10*3/ ?L. The reference r mitra was not used to interpret this result as normal/abnormal . MPV (test code = 9.4 fL 9.8-13.0 L 90574-0) NRBC/100 WBC (test 0.3 See_Comment [Automat ed code = 5892148472) message] The system which generated this result transmitted reference range : 0.0 - 10.0 /100 WBCs. The refer ence range was not u sed to interpret th is result as normal/abnormal . NRBC x10^3 (test code 0.03 See_Comment [Auto mated = 3663375047) message] The s ystem which generated this result transmitted reference range : 10*3/?L. The reference range was not used to interpret this result as normal/abnormal . GRAN MAT (NEUT) % 59.7 % (test code = 770-8) IMM GRAN % (test code 5.80 % = 4735223536) LYMPH % (test code = 21.3 % 736-9) MONO % (test code = 8.7 % 5905-5) EOS % (test code = 4.1 % 713-8) BASO % (test code = 0.4 % 706-2) GRAN MAT x10^3(ANC) 5.49 10*3/uL 1.99-6.95 (test code = 6858030197) IMM GRAN x10^3 (test 0.53 10*3/uL 0.00-0.06 H code = 2684952479) LYMPH x10^3 (test code 1.96 10*3/uL 1.09-3.23 = 731-0) MONO x10^3 (test code 0.80 10*3/uL 0.36-1.02 = 742-7) EOS x10^3 (test code = 0.38 10*3/uL 0.06-0.53 711-2) BASO x10^3 (test code 0.04 10*3/uL 0.01-0.09 = 704-7) Lab Interpretation Abnormal (test code = 14668-2) [facility] 11:[facility]:55 Test Item Value Reference Range Interpretation Comments MAGNESIUM (test code = 8744202422) 2.3 mg/dL 1.7-2.4 Lab Interpretation (test code = Normal 15221-6) [facility] 11:41:55 Test Item Value Reference Range Interpretation Comments PHOSPHORUS (test code = 0504118125) 3.4 mg/dL 2.5-5.0 Lab Interpretation (test code = Normal 03630-2) [facility] (NA, K, CL, CO2, GLUCOSE, BUN, CREATININE, CA)2022-06-01 11:41:55 Test Item Value Reference Range Interpretation Comments NA (test code = 137 mmol/L 135-145 8433350834) K (test code = 4.1 mmol/L 3.5-5.0 4458375091) CL (test code = 105 mmol/L 98-108 8351740793) CO2 TOTAL (test code = 27 mmol/L 23-31 1140197734) AGAP (test code = 5 2-16 6974489820) BUN (test code = 17 mg/dL 7-23 5920200276) GLUCOSE (test code = 135 mg/dL 70-110 H 4583856870) CREATININE (test code = 0.84 mg/dL 0.60-1.25 4928431387) CALCIUM (test code = 8.4 mg/dL 8.6-10.6 L 4974148527) eGFR (test code = 93.5 mL/min/1.73m2 5665802206) DEWAYNE (test code = DEWAYNE) Association of [...] tests). Lab Interpretation Abnormal (test code = 64717-1) [facility] 11:41:55 Test Item Value Reference Range Interpretation Comments MAGNESIUM (test code = 4854629970) 2.3 mg/dL 1.7-2.4 Lab Interpretation (test code = Normal 45931-8) [facility] 11:41:55 Test Item Value Reference Range Interpretation Comments PHOSPHORUS (test code = 3824369282) 3.4 mg/dL 2.5-5.0 Lab Interpretation (test code = Normal 39041-7) [facility] (NA, K, CL, CO2, GLUCOSE, BUN, CREATININE, CA)2022-06-01 11:41:55 Test Item Value Reference Range Interpretation Comments NA (test code = 137 mmol/L 135-145 2231273999) K (test code = 4.1 mmol/L 3.5-5.0 9405614705) CL (test code = 105 mmol/L 98-108 3799062946) CO2 TOTAL (test code = 27 mmol/L 23-31 0868843712) AGAP (test code = 5 2-16 4170320323) BUN (test code = 17 mg/dL 7-23 6721496593) GLUCOSE (test code = 135 mg/dL 70-110 H 4676287118) CREATININE (test code = 0.84 mg/dL 0.60-1.25 9491061438) CALCIUM (test code = 8.4 mg/dL 8.6-10.6 L 5890049684) eGFR (test code = 93.5 mL/min/1.73m2 8504503940) DEWAYNE (test code = DEWAYNE) Association of [...] tests). Lab Interpretation Abnormal (test code = 66562-4) [facility] WITH [id number] 12:02:32 Test Item Value Reference Range Interpretation Comments WBC (test code = 9.82 See_Comment [Automated 7932-2) message] The sy stem which generated this result transmitted reference range : 4.20 - 10.70 10*3/?L. The reference range was not used to interpret this result as normal/abnormal . RBC (test code = 3.82 See_Comment L [Automated 845-8) message] The sy stem which generated this [...] RDW-SD (test code = 46.6 fL 38.5-51.6 73913-1) RDW-CV (test code = 14.9 % 12.1-15.4 788-0) PLT (test code = 154 See_Comment [Automated 777-3) message] The sy stem which generated this result transmitted reference range : 150 - 328 10*3/ ?L. The reference r mitra was not used to interpret this result as normal/abnormal . MPV (test code = 9.5 fL 9.8-13.0 L 25807-6) NRBC/100 WBC (test 0.2 See_Comment [Automat ed code = 9252155180) message] The system which generated this result transmitted reference range : 0.0 - 10.0 /100 WBCs. The refer ence range was not u sed to interpret th is result as normal/abnormal . NRBC x10^3 (test code 0.02 See_Comment [Auto mated = 3890611440) message] The s ystem which generated this result transmitted reference range : 10*3/?L. The reference range was not used to interpret this result as normal/abnormal . GRAN MAT (NEUT) % 80.7 % (test code = 770-8) IMM GRAN % (test code 4.50 % = 1237234150) LYMPH % (test code = 6.5 % 736-9) MONO % (test code = 7.3 % 5905-5) EOS % (test code = 0.6 % 713-8) BASO % (test code = 0.4 % 706-2) GRAN MAT x10^3(ANC) 7.92 10*3/uL 1.99-6.95 H (test code = 0846731954) IMM GRAN x10^3 (test 0.44 10*3/uL 0.00-0.06 H code = 3133672199) LYMPH x10^3 (test code 0.64 10*3/uL 1.09-3.23 L = 731-0) MONO x10^3 (test code 0.72 10*3/uL 0.36-1.02 = 742-7) EOS x10^3 (test code = 0.06 10*3/uL 0.06-0.53 711-2) BASO x10^3 (test code 0.04 10*3/uL 0.01-0.09 = 704-7) MEAGHAN CELLS (test code 2+ See_Comment A [Auto mated = 6390-9) message] The sy stem which generated this result transmitted reference range : (none). The reference range was not used to interpret this result as normal/abnormal . REACT LYMPHS (test Rare code = [id number]) Lab Interpretation Abnormal (test code = 73195-2) [facility] WITH [id number] 12:02:32 Test Item Value Reference Range Interpretation Comments WBC (test code = 9.82 See_Comment [Automated 6990-2) message] The sy stem which generated this result transmitted reference range : 4.20 - 10.70 10*3/?L. The reference range was not used to interpret this result as normal/abnormal . RBC (test code = 3.82 See_Comment L [Automated 819-8) message] The sy stem which generated this [...] RDW-SD (test code = 46.6 fL 38.5-51.6 71962-9) RDW-CV (test code = 14.9 % 12.1-15.4 788-0) PLT (test code = 154 See_Comment [Automated 337-3) message] The sy stem which generated this result transmitted reference range : 150 - 328 10*3/ ?L. The reference r mitra was not used to interpret this result as normal/abnormal . MPV (test code = 9.5 fL 9.8-13.0 L 27825-5) NRBC/100 WBC (test 0.2 See_Comment [Automat ed code = [id number]) message] The system which generated this result transmitted reference range : 0.0 - 10.0 /100 WBCs. The refer ence range was not u sed to interpret th is result as normal/abnormal . NRBC x10^3 (test code 0.02 See_Comment [Auto mated = [id number]) message] The s ystem which generated this result transmitted reference range : 10*3/?L. The reference range was not used to interpret this result as normal/abnormal . GRAN MAT (NEUT) % 80.7 % (test code = 770-8) IMM GRAN % (test code 4.50 % = 1510435950) LYMPH % (test code = 6.5 % 736-9) MONO % (test code = 7.3 % 5905-5) EOS % (test code = 0.6 % 713-8) BASO % (test code = 0.4 % 706-2) GRAN MAT x10^3(ANC) 7.92 10*3/uL 1.99-6.95 H (test code = 3232951951) IMM GRAN x10^3 (test 0.44 10*3/uL 0.00-0.06 H code = 2211441759) LYMPH x10^3 (test code 0.64 10*3/uL 1.09-3.23 L = 731-0) MONO x10^3 (test code 0.72 10*3/uL 0.36-1.02 = 742-7) EOS x10^3 (test code = 0.06 10*3/uL 0.06-0.53 711-2) BASO x10^3 (test code 0.04 10*3/uL 0.01-0.09 = 704-7) MEAGHAN CELLS (test code 2+ See_Comment A [Auto mated = 4030-4) message] The sy stem which generated this result transmitted reference range : (none). The reference range was not used to interpret this result as normal/abnormal . REACT LYMPHS (test Rare code = 8975696422) Lab Interpretation Abnormal (test code = 34225-2) [facility] WITH [id number] 12:02:32 Test Item Value Reference Range Interpretation [...] RDW-SD (test code = 46.6 fL 38.5-51.6 06147-1) RDW-CV (test code = 14.9 % 12.1-15.4 788-0) PLT (test code = 154 See_Comment [Automated 777-3) message] The sy stem which generated this result transmitted reference range : 150 - 328 10*3/ ?L. The reference r mitra was not used to interpret this result as normal/abnormal . MPV (test code = 9.5 fL 9.8-13.0 L 07915-6) NRBC/100 WBC (test 0.2 See_Comment [Automat ed code = 9282675160) message] The system which generated this result transmitted reference range : 0.0 - 10.0 /100 WBCs. The refer ence range was not u sed to interpret th is result as normal/abnormal . NRBC x10^3 (test code 0.02 See_Comment [Auto mated = 9937947103) message] The s ystem which generated this result transmitted reference range : 10*3/?L. The reference range was not used to interpret this result as normal/abnormal . GRAN MAT (NEUT) % 80.7 % (test code = 770-8) IMM GRAN % (test code 4.50 % = 8486325467) LYMPH % (test code = 6.5 % 736-9) MONO % (test code = 7.3 % 5905-5) EOS % (test code = 0.6 % 713-8) BASO % (test code = 0.4 % 706-2) GRAN MAT x10^3(ANC) 7.92 10*3/uL 1.99-6.95 H (test code = 4785182116) IMM GRAN x10^3 (test 0.44 10*3/uL 0.00-0.06 H code = 3057551730) LYMPH x10^3 (test code 0.64 10*3/uL 1.09-3.23 L = 731-0) MONO x10^3 (test code 0.72 10*3/uL 0.36-1.02 = 742-7) EOS x10^3 (test code = 0.06 10*3/uL 0.06-0.53 711-2) BASO x10^3 (test code 0.04 10*3/uL 0.01-0.09 = 704-7) MEAGHAN CELLS (test code 2+ See_Comment A [Auto mated = 1725-2) message] The sy stem which generated this result transmitted reference range : (none). The reference range was not used to interpret this result as normal/abnormal . REACT LYMPHS (test Rare code = 3755346664) Lab Interpretation Abnormal (test code = 25535-7) [facility]29 Test Item Value Reference Range Interpretation Comments MAGNESIUM (test code = 7757736843) 2.1 mg/dL 1.7-2.4 Lab Interpretation (test code = Normal 47742-8) [facility] 11:43:29 Test Item Value Reference Range Interpretation Comments PHOSPHORUS (test code = 7608633959) 3.7 mg/dL 2.5-5.0 Lab Interpretation (test code = Normal 95454-6) [facility] METABOLIC PANEL (NA, K, CL, CO2, GLUCOSE, BUN, CREATININE, CA)2022-05-31 11:43:29 Test Item Value Reference Range Interpretation Comments NA (test code = 133 mmol/L 135-145 L 6511596680) K (test code = 4.7 mmol/L 3.5-5.0 Slight 5162493013) hemolysis CL (test code = 104 mmol/L 98-108 6602668321) CO2 TOTAL (test code 25 mmol/L 23-31 = 0803331973) AGAP (test code = 4 2-16 8290438790) BUN (test code = 17 mg/dL 7-23 Slight 0849123597) hemolysis GLUCOSE (test code = 189 mg/dL 70-110 H 6978738326) CREATININE (test code 0.82 mg/dL 0.60-1.25 = 8630231846) CALCIUM (test code = 8.0 mg/dL 8.6-10.6 L 6977226161) eGFR (test code = 96.2 mL/min/1.73m2 1079740033) DEWAYNE (test code = DEWAYNE) Association of [...] tests). Lab Interpretation Abnormal (test code = 89721-9) [facility] 11:43:29 Test Item Value Reference Range Interpretation Comments MAGNESIUM (test code = 7370598191) 2.1 mg/dL 1.7-2.4 Lab Interpretation (test code = Normal 38563-9) [facility] 11:43:29 Test Item Value Reference Range Interpretation Comments PHOSPHORUS (test code = 5617989355) 3.7 mg/dL 2.5-5.0 Lab Interpretation (test code = Normal 39671-3) [facility] (NA, K, CL, CO2, GLUCOSE, BUN, CREATININE, CA)2022-05-31 11:43:29 Test Item Value Reference Range Interpretation Comments NA (test code = 133 mmol/L 135-145 L 1703866656) K (test code = 4.7 mmol/L 3.5-5.0 Slight 3572365091) hemolysis CL (test code = 104 mmol/L 98-108 0062374052) CO2 TOTAL (test code 25 mmol/L 23-31 = 2596801745) AGAP (test code = 4 2-16 8984751602) BUN (test code = 17 mg/dL 7-23 Slight 0746788306) hemolysis GLUCOSE (test code = 189 mg/dL 70-110 H 4398403823) CREATININE (test code 0.82 mg/dL 0.60-1.25 = 9497966898) CALCIUM (test code = 8.0 mg/dL 8.6-10.6 L 6887082446) eGFR (test code = 96.2 mL/min/1.73m2 0761554986) DEWAYNE (test code = DEWAYNE) Association of [...] tests). Lab Interpretation Abnormal (test code = 67407-1) [facility] 11:43:29 Test Item Value Reference Range Interpretation Comments MAGNESIUM (test code = 0424915581) 2.1 mg/dL 1.7-2.4 Lab Interpretation (test code = Normal 12320-6) [facility] 11:43:29 Test Item Value Reference Range Interpretation Comments PHOSPHORUS (test code = 9313573124) 3.7 mg/dL 2.5-5.0 Lab Interpretation (test code = Normal 17664-8) [facility] (NA, K, CL, CO2, GLUCOSE, BUN, CREATININE, CA)2022-05-31 11:43:29 Test Item Value Reference Range Interpretation Comments NA (test code = 133 mmol/L 135-145 L 2674032589) K (test code = 4.7 mmol/L 3.5-5.0 Slight 8538822315) hemolysis CL (test code = 104 mmol/L 98-108 6462056825) CO2 TOTAL (test code 25 mmol/L 23-31 = 5281962255) AGAP (test code = 4 2-16 6158143968) BUN (test code = 17 mg/dL 7-23 Slight 8180804024) hemolysis GLUCOSE (test code = 189 mg/dL 70-110 H 7992448118) CREATININE (test code 0.82 mg/dL 0.60-1.25 = 1687097292) CALCIUM (test code = 8.0 mg/dL 8.6-10.6 L 8320660051) eGFR (test code = 96.2 mL/min/1.73m2 0350229266) DEWAYNE (test code = DEWAYNE) Association of [...] tests). Lab Interpretation Abnormal (test code = 50235-1) [facility] 11:30:44 Test Item Value Reference Range Interpretation Comments Fibrinogen (test code = 0042601894) 218 mg/dL 167-453 Lab Interpretation (test code = Normal 87881-6) [facility] 11:30:44 Test Item Value Reference Range Interpretation Comments Fibrinogen (test code = 6148936538) 218 mg/dL 167-453 Lab Interpretation (test code = Normal 60251-8) [facility] 11:30:44 Test Item Value Reference Range Interpretation Comments Fibrinogen (test code = 4745697059) 218 mg/dL 167-453 Lab Interpretation (test code = Normal 39127-5) [facility] / [id number] 11:29:02 Test Item Value Reference Range Interpretation Comments PROTIME PATIENT (test 12.7 See_Comment H [Auto mated message] code = 5964-2) The system [employer] generated this result transmitted ref erence range: 10.1 - 1 2.6 Seconds. The reference range was not used to int erpret this result as normal/abnormal . INR (test code = 6301-6) 1.1 Nor mal INR <1.1; Warfarin Therap eutic range 2.0 to 3. 0 or 2.5 to 3.5, dep ending upon the indica tions. Lab Interpretation (test Abnormal code = 14517-4) [facility] 11:29:02 Test Item Value Reference Range Interpretation Comments APTT Patient (test code 82 See_Comment H [Au tomated message] = 3173-2) The system [employer] generated this result transmitted ref erence range: 26 - 36 Seconds. The reference range was not used to int erpret this result as normal/abnormal . Lab Interpretation (test Abnormal code = 29002-2) [facility] / [id number] 11:29:02 Test Item Value Reference Range Interpretation Comments PROTIME PATIENT (test 12.7 See_Comment H [Auto mated message] code = 5964-2) The system [employer] generated this result transmitted ref erence range: 10.1 - 1 2.6 Seconds. The reference range was not used to int erpret this result as normal/abnormal . INR (test code = 6301-6) 1.1 Nor mal INR <1.1; Warfarin Therap eutic range 2.0 to 3. 0 or 2.5 to 3.5, dep ending upon the indica tions. Lab Interpretation (test Abnormal code = 27704-6) [facility] 11:29:02 Test Item Value Reference Range Interpretation Comments APTT Patient (test code 82 See_Comment H [Au tomated message] = 3173-2) The system [employer] generated this result transmitted ref erence range: 26 - 36 Seconds. The reference range was not used to int erpret this result as normal/abnormal . Lab Interpretation (test Abnormal code = 90254-9) [facility] / [id number] 11:29:02 Test Item Value Reference Range Interpretation Comments PROTIME PATIENT (test 12.7 See_Comment H [Auto mated message] code = 5964-2) The system [employer] generated this result transmitted ref erence range: 10.1 - 1 2.6 Seconds. The reference range was not used to int erpret this result as normal/abnormal . INR (test code = 6301-6) 1.1 Nor mal INR <1.1; Warfarin Therap eutic range 2.0 to 3. 0 or 2.5 to 3.5, dep ending upon the indica tions. Lab Interpretation (test Abnormal code = 99133-4) [facility] Test Item Value Reference Range Interpretation Comments APTT Patient (test code 82 See_Comment H [Au tomated message] = 3173-2) The system [employer] generated this result transmitted ref erence range: 26 - 36 Seconds. The reference range was not used to int erpret this result as normal/abnormal . Lab Interpretation (test Abnormal code = 01267-4) [facility] 02:12:17 Test Item Value Reference Range Interpretation Comments Fibrinogen (test code = 6640200022) 124 mg/dL 167-453 L Lab Interpretation (test code = Abnormal 29339-0) [facility] 02:12:17 Test Item Value Reference Range Interpretation Comments Fibrinogen (test code = 9521518983) 124 mg/dL 167-453 L Lab Interpretation (test code = Abnormal 67572-7) [facility]2023-04-18 02:12:17 Test Item Value Reference Range Interpretation Comments Fibrinogen (test code = 1748251307) 124 mg/dL 167-453 L Lab Interpretation (test code = Abnormal 98305-5) [facility]2023-04-17 22:27:11 Test Item Value Reference Range Interpretation Comments Fibrinogen (test code = 4079004360) 108 mg/dL 167-453 L Lab Interpretation (test code = Abnormal 04347-6) [facility]2023-04-17 22:27:11 Test Item Value Reference Range Interpretation Comments Fibrinogen (test code = 0500924700) 108 mg/dL 167-453 L Lab Interpretation (test code = Abnormal 76886-5) [address]04-17 22:27:11 Test Item Value Reference Range Interpretation Comments Fibrinogen (test code = 0992192288) 108 mg/dL 167-453 L Lab Interpretation (test code = Abnormal 10689-0) [facility]2023-04-17 18:54:36 Test Item Value Reference Range Interpretation Comments Fibrinogen (test code = 0131909167) 110 mg/dL 167-453 L Lab Interpretation (test code = Abnormal 16053-2) [facility]2023-04-17 18:54:36 Test Item Value Reference Range Interpretation Comments Fibrinogen (test code = 4826367446) 110 mg/dL 167-453 L Lab Interpretation (test code = Abnormal 25620-5) [facility]2023-04-17 18:54:36 Test Item Value Reference Range Interpretation Comments Fibrinogen (test code = 2347299336) 110 mg/dL 167-453 L Lab Interpretation (test code = Abnormal 18399-6) [facility]2023-04-17 18:54:36 Test Item Value Reference Range Interpretation Comments Fibrinogen (test code = 8078460911) 110 mg/dL 167-453 L Lab Interpretation (test code = Abnormal 80535-2) [address]04[address]17 15:54:43 Test Item Value Reference Range Interpretation Comments Fibrinogen (test code = 8757170282) 118 mg/dL 167-453 L Lab Interpretation (test code = Abnormal 67468-2) [facility]2023-04-17 15:54:43 Test Item Value Reference Range Interpretation Comments Fibrinogen (test code = 9737233660) 118 mg/dL 167-453 L Lab Interpretation (test code = Abnormal 96264-4) [facility]2023-04-17 15:54:43 Test Item Value Reference Range Interpretation Comments Fibrinogen (test code = 5367943252) 118 mg/dL 167-453 L Lab Interpretation (test code = Abnormal 74380-6) [facility]2023-04-17 15:54:43 Test Item Value Reference Range Interpretation Comments Fibrinogen (test code = 8536989842) 118 mg/dL 167-453 L Lab Interpretation (test code = Abnormal 82830-1) [facility]2023-04-17 13:43:27 Test Item Value Reference Range Interpretation Comments Fibrinogen (test code = 5390396245) 119 mg/dL 167-453 L Lab Interpretation (test code = Abnormal 73239-0) [facility]2023-04-17 13:43:27 Test Item Value Reference Range Interpretation Comments Fibrinogen (test code = 1280328743) 119 mg/dL 167-453 L Lab Interpretation (test code = Abnormal 99566-3) [facility]2023-04-17 13:43:27 Test Item Value Reference Range Interpretation Comments Fibrinogen (test code = 2035465090) 119 mg/dL 167-453 L Lab Interpretation (test code = Abnormal 44046-8) [facility]2023-04-17 13:43:27 Test Item Value Reference Range Interpretation Comments Fibrinogen (test code = 6800133086) 119 mg/dL 167-453 L Lab Interpretation (test code = Abnormal 57544-1) [address]04-17 11:50:10 Test Item Value Reference Range Interpretation Comments Fibrinogen (test code = 6333835464) 97 mg/dL 167-453 LL Lab Interpretation (test code = Abnormal 57584-3) [address]04[address]17 11:50:10 Test Item Value Reference Range Interpretation Comments Fibrinogen (test code = 6813597848) 97 mg/dL 167-453 LL Lab Interpretation (test code = Abnormal 82902-1) [facility] 11:50:10 Test Item Value Reference Range Interpretation Comments Fibrinogen (test code = 8288234976) 97 mg/dL 167-453 LL Lab Interpretation (test code = Abnormal 81916-6) [facility] 11:[facility]:10 Test Item Value Reference Range Interpretation Comments Fibrinogen (test code = 7825690121) 97 mg/dL 167-453 LL Lab Interpretation (test code = Abnormal 66085-6) [facility] WITH [id number] 10:13:04 Test Item Value Reference Range Interpretation [...] RDW-SD (test code = 45.3 fL 38.5-51.6 40531-8) RDW-CV (test code = 14.5 % 12.1-15.4 788-0) PLT (test code = 174 See_Comment [Automated 777-3) message] The sy stem which generated this result transmitted reference range : 150 - 328 10*3/ ?L. The reference r mitra was not used to interpret this result as normal/abnormal . MPV (test code = 8.9 fL 9.8-13.0 L 94469-8) NRBC/100 WBC (test 0.3 See_Comment [Automat ed code = 1282238304) message] The system which generated this result transmitted reference range : 0.0 - 10.0 /100 WBCs. The refer ence range was not u sed to interpret th is result as normal/abnormal . NRBC x10^3 (test code 0.03 See_Comment [Auto mated = 2717675071) message] The s ystem which generated this result transmitted reference range : 10*3/?L. The reference range was not used to interpret this result as normal/abnormal . GRAN MAT (NEUT) % 63.0 % (test code = 770-8) IMM GRAN % (test code 3.60 % = 5690049876) LYMPH % (test code = 17.5 % 736-9) MONO % (test code = 10.8 % 5905-5) EOS % (test code = 4.5 % 713-8) BASO % (test code = 0.6 % 706-2) GRAN MAT x10^3(ANC) 5.89 10*3/uL 1.99-6.95 (test code = 3905116678) IMM GRAN x10^3 (test 0.34 10*3/uL 0.00-0.06 H code = 0649453145) LYMPH x10^3 (test code 1.64 10*3/uL 1.09-3.23 = 731-0) MONO x10^3 (test code 1.01 10*3/uL 0.36-1.02 = 742-7) EOS x10^3 (test code = 0.42 10*3/uL 0.06-0.53 711-2) BASO x10^3 (test code 0.06 10*3/uL 0.01-0.09 = 704-7) REACT LYMPHS (test Rare code = 5501201830) Lab Interpretation Abnormal (test code = 31015-6) [facility] WITH [id number] 10:13:04 Test Item Value Reference Range Interpretation [...] RDW-SD (test code = 45.3 fL 38.5-51.6 59171-7) RDW-CV (test code = 14.5 % 12.1-15.4 788-0) PLT (test code = 174 See_Comment [Automated 777-3) message] The sy stem which generated this result transmitted reference range : 150 - 328 10*3/ ?L. The reference r mitra was not used to interpret this result as normal/abnormal . MPV (test code = 8.9 fL 9.8-13.0 L 03678-1) NRBC/100 WBC (test 0.3 See_Comment [Automat ed code = 0614233599) message] The system which generated this result transmitted reference range : 0.0 - 10.0 /100 WBCs. The refer ence range was not u sed to interpret th is result as normal/abnormal . NRBC x10^3 (test code 0.03 See_Comment [Auto mated = 9679262027) message] The s ystem which generated this result transmitted reference range : 10*3/?L. The reference range was not used to interpret this result as normal/abnormal . GRAN MAT (NEUT) % 63.0 % (test code = 770-8) IMM GRAN % (test code 3.60 % = 6551939882) LYMPH % (test code = 17.5 % 736-9) MONO % (test code = 10.8 % 5905-5) EOS % (test code = 4.5 % 713-8) BASO % (test code = 0.6 % 706-2) GRAN MAT x10^3(ANC) 5.89 10*3/uL 1.99-6.95 (test code = 9300351349) IMM GRAN x10^3 (test 0.34 10*3/uL 0.00-0.06 H code = 6246269904) LYMPH x10^3 (test code 1.64 10*3/uL 1.09-3.23 = 731-0) MONO x10^3 (test code 1.01 10*3/uL 0.36-1.02 = 742-7) EOS x10^3 (test code = 0.42 10*3/uL 0.06-0.53 711-2) BASO x10^3 (test code 0.06 10*3/uL 0.01-0.09 = 704-7) REACT LYMPHS (test Rare code = 2634454784) Lab Interpretation Abnormal (test code = 92587-7) [facility] WITH [id number] 10:13:04 Test Item Value Reference Range Interpretation Comments WBC (test code = 9.36 See_Comment [Automated 8590-2) message] The sy stem which generated this result transmitted reference range : 4.20 - 10.70 10*3/?L. The reference range was not used to interpret this result as normal/abnormal . RBC (test code = 4.03 See_Comment L [Automated 235-8) message] The sy stem which generated this [...] RDW-SD (test code = 45.3 fL 38.5-51.6 59197-4) RDW-CV (test code = 14.5 % 12.1-15.4 788-0) PLT (test code = 174 See_Comment [Automated 777-3) message] The sy stem which generated this result transmitted reference range : 150 - 328 10*3/ ?L. The reference r mitra was not used to interpret this result as normal/abnormal . MPV (test code = 8.9 fL 9.8-13.0 L 74634-1) NRBC/100 WBC (test 0.3 See_Comment [Automat ed code = 1353939991) message] The system which generated this result transmitted reference range : 0.0 - 10.0 /100 WBCs. The refer ence range was not u sed to interpret th is result as normal/abnormal . NRBC x10^3 (test code 0.03 See_Comment [Auto mated = 2317374872) message] The s ystem which generated this result transmitted reference range : 10*3/?L. The reference range was not used to interpret this result as normal/abnormal . GRAN MAT (NEUT) % 63.0 % (test code = 770-8) IMM GRAN % (test code 3.60 % = 4842741047) LYMPH % (test code = 17.5 % 736-9) MONO % (test code = 10.8 % 5905-5) EOS % (test code = 4.5 % 713-8) BASO % (test code = 0.6 % 706-2) GRAN MAT x10^3(ANC) 5.89 10*3/uL 1.99-6.95 (test code = 4288766210) IMM GRAN x10^3 (test 0.34 10*3/uL 0.00-0.06 H code = 2216416301) LYMPH x10^3 (test code 1.64 10*3/uL 1.09-3.23 = 731-0) MONO x10^3 (test code 1.01 10*3/uL 0.36-1.02 = 742-7) EOS x10^3 (test code = 0.42 10*3/uL 0.06-0.53 711-2) BASO x10^3 (test code 0.06 10*3/uL 0.01-0.09 = 704-7) REACT LYMPHS (test Rare code = 6408617678) Lab Interpretation Abnormal (test code = 21824-3) [facility] WITH [id number] 10:13:04 Test Item Value Reference Range Interpretation [...] RDW-SD (test code = 45.3 fL 38.5-51.6 76887-2) RDW-CV (test code = 14.5 % 12.1-15.4 788-0) PLT (test code = 174 See_Comment [Automated 777-3) message] The sy stem which generated this result transmitted reference range : 150 - 328 10*3/ ?L. The reference r mitra was not used to interpret this result as normal/abnormal . MPV (test code = 8.9 fL 9.8-13.0 L 65174-8) NRBC/100 WBC (test 0.3 See_Comment [Automat ed code = 3382087561) message] The system which generated this result transmitted reference range : 0.0 - 10.0 /100 WBCs. The refer ence range was not u sed to interpret th is result as normal/abnormal . NRBC x10^3 (test code 0.03 See_Comment [Auto mated = 3759222622) message] The s ystem which generated this result transmitted reference range : 10*3/?L. The reference range was not used to interpret this result as normal/abnormal . GRAN MAT (NEUT) % 63.0 % (test code = 770-8) IMM GRAN % (test code 3.60 % = 2887800128) LYMPH % (test code = 17.5 % 736-9) MONO % (test code = 10.8 % 5905-5) EOS % (test code = 4.5 % 713-8) BASO % (test code = 0.6 % 706-2) GRAN MAT x10^3(ANC) 5.89 10*3/uL 1.99-6.95 (test code = 6214206667) IMM GRAN x10^3 (test 0.34 10*3/uL 0.00-0.06 H code = 2764593228) LYMPH x10^3 (test code 1.64 10*3/uL 1.09-3.23 = 731-0) MONO x10^3 (test code 1.01 10*3/uL 0.36-1.02 = 742-7) EOS x10^3 (test code = 0.42 10*3/uL 0.06-0.53 711-2) BASO x10^3 (test code 0.06 10*3/uL 0.01-0.09 = 704-7) REACT LYMPHS (test Rare code = 3516747366) Lab Interpretation Abnormal (test code = 36584-5) [facility]10:03 Test Item Value Reference Range Interpretation Comments PHOSPHORUS (test code = 0273235592) 4.2 mg/dL 2.5-5.0 Lab Interpretation (test code = Normal 21322-0) [facility] 10:10:03 Test Item Value Reference Range Interpretation Comments MAGNESIUM (test code = 8415581855) 2.0 mg/dL 1.7-2.4 Lab Interpretation (test code = Normal 26954-6) [facility] (NA, K, CL, CO2, GLUCOSE, BUN, CREATININE, CA)2022-05-30 10:10:03 Test Item Value Reference Range Interpretation Comments NA (test code = 133 mmol/L 135-145 L 5077369312) K (test code = 3.9 mmol/L 3.5-5.0 9029665177) CL (test code = 103 mmol/L 98-108 8736272518) CO2 TOTAL (test code = 25 mmol/L 23-31 6858286325) AGAP (test code = 5 2-16 9835948198) BUN (test code = 22 mg/dL 7-23 0372089228) GLUCOSE (test code = 128 mg/dL 70-110 H 6249666892) CREATININE (test code = 0.87 mg/dL 0.60-1.25 2779211105) CALCIUM (test code = 8.2 mg/dL 8.6-10.6 L 2345237581) eGFR (test code = 89.8 mL/min/1.73m2 6310176956) DEWAYNE (test code = DEWAYNE) Association of [...] tests). Lab Interpretation Abnormal (test code = 64391-4) [facility] 10:10:03 Test Item Value Reference Range Interpretation Comments PHOSPHORUS (test code = 0526037913) 4.2 mg/dL 2.5-5.0 Lab Interpretation (test code = Normal 59784-2) [facility] 10:10:03 Test Item Value Reference Range Interpretation Comments MAGNESIUM (test code = 8722541422) 2.0 mg/dL 1.7-2.4 Lab Interpretation (test code = Normal 32359-2) [facility] (NA, K, CL, CO2, GLUCOSE, BUN, CREATININE, CA)2022-05-30 10:10:03 Test Item Value Reference Range Interpretation Comments NA (test code = 133 mmol/L 135-145 L 8954523794) K (test code = 3.9 mmol/L 3.5-5.0 9180620091) CL (test code = 103 mmol/L 98-108 5679684914) CO2 TOTAL (test code = 25 mmol/L 23-31 0174866432) AGAP (test code = 5 2-16 [id number]) BUN (test code = 22 mg/dL 7-23 0055432350) GLUCOSE (test code = 128 mg/dL 70-110 H [id number]) CREATININE (test code = 0.87 mg/dL 0.60-1.25 9254971888) CALCIUM (test code = 8.2 mg/dL 8.6-10.6 L [id number]) eGFR (test code = 89.8 mL/min/1.73m2 5303172952) DEWAYNE (test code = DEWAYNE) Association of [...] tests). Lab Interpretation Abnormal (test code = 80705-5) [facility] Test Item Value Reference Range Interpretation Comments PHOSPHORUS (test code = [id number]) 4.2 mg/dL 2.5-5.0 Lab Interpretation (test code = Normal 52044-5) [facility]03 Test Item Value Reference Range Interpretation Comments MAGNESIUM (test code = 8743631983) 2.0 mg/dL 1.7-2.4 Lab Interpretation (test code = Normal 69231-8) [facility] (NA, K, CL, CO2, GLUCOSE, BUN, CREATININE, CA)2022-05-30 10:10:03 Test Item Value Reference Range Interpretation Comments NA (test code = 133 mmol/L 135-145 L 1197416484) K (test code = 3.9 mmol/L 3.5-5.0 0150418509) CL (test code = 103 mmol/L 98-108 4009470373) CO2 TOTAL (test code = 25 mmol/L 23-31 8510493750) AGAP (test code = 5 2-16 3643604025) BUN (test code = 22 mg/dL 7-23 0887947191) GLUCOSE (test code = 128 mg/dL 70-110 H 7546907893) CREATININE (test code = 0.87 mg/dL 0.60-1.25 8932185882) CALCIUM (test code = 8.2 mg/dL 8.6-10.6 L 5938069323) eGFR (test code = 89.8 mL/min/1.73m2 6390928501) DEWAYNE (test code = DEWAYNE) Association of [...] tests). Lab Interpretation Abnormal (test code = 16473-1) [facility] 10:10:03 Test Item Value Reference Range Interpretation Comments PHOSPHORUS (test code = 3577705879) 4.2 mg/dL 2.5-5.0 Lab Interpretation (test code = Normal 55201-2) [facility] 10:10:03 Test Item Value Reference Range Interpretation Comments MAGNESIUM (test code = 3224803521) 2.0 mg/dL 1.7-2.4 Lab Interpretation (test code = Normal 19231-2) [facility] (NA, K, CL, CO2, GLUCOSE, BUN, CREATININE, CA)2022-05-30 10:10:03 Test Item Value Reference Range Interpretation Comments NA (test code = 133 mmol/L 135-145 L 6200462460) K (test code = 3.9 mmol/L 3.5-5.0 9103734575) CL (test code = 103 mmol/L 98-108 2825502843) CO2 TOTAL (test code = 25 mmol/L 23-31 6495310449) AGAP (test code = 5 2-16 7686295874) BUN (test code = 22 mg/dL 7-23 5350537078) GLUCOSE (test code = 128 mg/dL 70-110 H 5751011712) CREATININE (test code = 0.87 mg/dL 0.60-1.25 6813899905) CALCIUM (test code = 8.2 mg/dL 8.6-10.6 L 4745256294) eGFR (test code = 89.8 mL/min/1.73m2 6675280896) DEWAYNE (test code = DEWAYNE) Association of [...] tests). Lab Interpretation Abnormal (test code = 29091-8) [facility]2023-04-17 09:52:38 Test Item Value Reference Range Interpretation Comments Fibrinogen (test code = 7843037823) 86 mg/dL 167-453 LL Lab Interpretation (test code = Abnormal 76691-0) [facility]2023-04-17 09:52:38 Test Item Value Reference Range Interpretation Comments Fibrinogen (test code = 4468478908) 86 mg/dL 167-453 LL Lab Interpretation (test code = Abnormal 29057-7) [facility]2023-04-17 09:52:38 Test Item Value Reference Range Interpretation Comments Fibrinogen (test code = 6936643684) 86 mg/dL 167-453 LL Lab Interpretation (test code = Abnormal 95665-8) [facility]2023-04-17 09:52:38 Test Item Value Reference Range Interpretation Comments Fibrinogen (test code = 3511039320) 86 mg/dL 167-453 LL Lab Interpretation (test code = Abnormal 94256-1) [place] [id number] 09:51:57 Test Item Value Reference Range Interpretation Comments APTT Patient (test code 44 See_Comment H [Au tomated message] = 3263-2) The system [employer]fire generated this result transmitted ref erence range: 26 - 36 Seconds. The reference range was not used to int erpret this result as normal/abnormal . Lab Interpretation (test Abnormal code = 58657-2) [place] [id number] 09:51:57 Test Item Value Reference Range Interpretation Comments APTT Patient (test code 44 See_Comment H [Au tomated message] = 3173-2) The system [employer] generated this result transmitted ref erence range: 26 - 36 Seconds. The reference range was not used to int erpret this result as normal/abnormal . Lab Interpretation (test Abnormal code = 27884-2) [place] [id number] 09:51:57 Test Item Value Reference Range Interpretation Comments APTT Patient (test code 44 See_Comment H [Au tomated message] = 3173-2) The system [employer] generated this result transmitted ref erence range: 26 - 36 Seconds. The reference range was not used to int erpret this result as normal/abnormal . Lab Interpretation (test Abnormal code = 55988-5) [place] [id number] 09:51:57 Test Item Value Reference Range Interpretation Comments APTT Patient (test code 44 See_Comment H [Au tomated message] = 3173-2) The system [employer] generated this result transmitted ref erence range: 26 - 36 Seconds. The reference range was not used to int erpret this result as normal/abnormal . Lab Interpretation (test Abnormal code = 98723-1) [facility] Test Item Value Reference Range Interpretation Comments Fibrinogen (test code = 1006101829) 73 mg/dL 167-453 LL Lab Interpretation (test code = Abnormal 23240-5) [facility]2023-04-17 07:28:55 Test Item Value Reference Range Interpretation Comments Fibrinogen (test code = 4934916546) 73 mg/dL 167-453 LL Lab Interpretation (test code = Abnormal 60859-3) [facility]:28[facility]55 Test Item Value Reference Range Interpretation Comments Fibrinogen (test code = 5394558196) 73 mg/dL 167-453 LL Lab Interpretation (test code = Abnormal 33495-3) [facility] 07:28:55 Test Item Value Reference Range Interpretation Comments Fibrinogen (test code = 1859493367) 73 mg/dL 167-453 LL Lab Interpretation (test code = Abnormal 59288-3) [facility] (for use with Heparin Drip)2022-05-30 06:39:14 Test Item Value Reference Range Interpretation Comments APTT Patient (test code 44 See_Comment H [Au tomated message] = 3173-2) The system [employer] generated this result transmitted ref erence range: 26 - 36 Seconds. The reference range was not used to int erpret this result as normal/abnormal . Lab Interpretation (test Abnormal code = 73695-6) [facility] (for use with Heparin Drip)2022-05-30 06:39:14 Test Item Value Reference Range Interpretation Comments APTT Patient (test code 44 See_Comment H [Au tomated message] = 3173-2) The system [employer] generated this result transmitted ref erence range: 26 - 36 Seconds. The reference range was not used to int erpret this result as normal/abnormal . Lab Interpretation (test Abnormal code = 79502-2) [facility] (for use with Heparin Drip)2022-05-30 06:39:14 Test Item Value Reference Range Interpretation Comments APTT Patient (test code 44 See_Comment H [Au tomated message] = 3173-2) The system [employer] generated this result transmitted ref erence range: 26 - 36 Seconds. The reference range was not used to int erpret this result as normal/abnormal . Lab Interpretation (test Abnormal code = 36008-7) [facility] (for use with Heparin Drip)2022-05-30 06:39:14 Test Item Value Reference Range Interpretation Comments APTT Patient (test code 44 See_Comment H [Au tomated message] = 3173-2) The system [employer] generated this result transmitted ref erence range: 26 - 36 Seconds. The reference range was not used to int erpret this result as normal/abnormal . Lab Interpretation (test Abnormal code = 28977-6) [facility] 05:26:04 Test Item Value Reference Range Interpretation Comments Fibrinogen (test code = 2384742277) 71 mg/dL 167-453 LL Lab Interpretation (test code = Abnormal 00386-6) [facility] 05:26:04 Test Item Value Reference Range Interpretation Comments Fibrinogen (test code = 7166541461) 71 mg/dL 167-453 LL Lab Interpretation (test code = Abnormal 38164-5) [facility]2023-04-17 05:26:04 Test Item Value Reference Range Interpretation Comments Fibrinogen (test code = 7126319560) 71 mg/dL 167-453 LL Lab Interpretation (test code = Abnormal 20000-4) [facility]2023-04-17 05:26:04 Test Item Value Reference Range Interpretation Comments Fibrinogen (test code = 0405011102) 71 mg/dL 167-453 LL Lab Interpretation (test code = Abnormal 16096-6) [facility]2023-04-16 23:49:05 Test Item Value Reference Range Interpretation Comments Fibrinogen (test code = 8630490620) 98 mg/dL 167-453 LL Lab Interpretation (test code = Abnormal 12877-0) [facility]2023-04-16 23:49:05 Test Item Value Reference Range Interpretation Comments Fibrinogen (test code = 0866471539) 98 mg/dL 167-453 LL Lab Interpretation (test code = Abnormal 95392-1) [facility]2023-04-16 23:49:05 Test Item Value Reference Range Interpretation Comments Fibrinogen (test code = 8426787781) 98 mg/dL 167-453 LL Lab Interpretation (test code = Abnormal 03477-1) [facility]2023-04-16 23:49:05 Test Item Value Reference Range Interpretation Comments Fibrinogen (test code = 8282706498) 98 mg/dL 167-453 LL Lab Interpretation (test code = Abnormal 47138-2) [facility]2023-04-16 21:48:37 Test Item Value Reference Range Interpretation Comments Fibrinogen (test code = 4069166725) 113 mg/dL 167-453 L Lab Interpretation (test code = Abnormal 50919-8) [facility]2023-04-16 21:48:37 Test Item Value Reference Range Interpretation Comments Fibrinogen (test code = 2092045077) 113 mg/dL 167-453 L Lab Interpretation (test code = Abnormal 13952-3) [facility]2023-04-16 21:48:37 Test Item Value Reference Range Interpretation Comments Fibrinogen (test code = 8105009893) 113 mg/dL 167-453 L Lab Interpretation (test code = Abnormal 11486-7) [facility] 21:48:37 Test Item Value Reference Range Interpretation Comments Fibrinogen (test code = 1137984515) 113 mg/dL 167-453 L Lab Interpretation (test code = Abnormal 14172-3) [facility] (NA, K, CL, CO2, GLUCOSE, BUN, CREATININE, CA)2022-05-29 15:33:06 Test Item Value Reference Range Interpretation Comments NA (test code = 139 mmol/L 135-145 8351667079) K (test code = 4.2 mmol/L 3.5-5.0 1571442018) CL (test code = 104 mmol/L 98-108 4326757577) CO2 TOTAL (test code = 29 mmol/L 23-31 8948294672) AGAP (test code = 6 2-16 2320161797) BUN (test code = 25 mg/dL 7-23 H 6662714376) GLUCOSE (test code = 85 mg/dL 70-110 7344202527) CREATININE (test code = 1.02 mg/dL 0.60-1.25 9070313390) CALCIUM (test code = 8.7 mg/dL 8.6-10.6 5030099944) eGFR (test code = 74.8 mL/min/1.73m2 8532756194) DEWAYNE (test code = DEWAYNE) Association of [...] tests). Lab Interpretation Abnormal (test code = 93306-8) [facility] METABOLIC PANEL (NA, K, CL, CO2, GLUCOSE, BUN, CREATININE, CA)2022-05-29 15:33:06 Test Item Value Reference Range Interpretation Comments NA (test code = 139 mmol/L 135-145 1175682934) K (test code = 4.2 mmol/L 3.5-5.0 0037757364) CL (test code = 104 mmol/L 98-108 1764980205) CO2 TOTAL (test code = 29 mmol/L 23-31 7988575117) AGAP (test code = 6 2-16 7034690299) BUN (test code = 25 mg/dL 7-23 H 9002041780) GLUCOSE (test code = 85 mg/dL 70-110 3816198877) CREATININE (test code = 1.02 mg/dL 0.60-1.25 2415914397) CALCIUM (test code = 8.7 mg/dL 8.6-10.6 0369528326) eGFR (test code = 74.8 mL/min/1.73m2 4179693197) DEWAYNE (test code = DEWAYNE) Association of [...] tests). Lab Interpretation Abnormal (test code = 96125-1) [facility] METABOLIC PANEL (NA, K, CL, CO2, GLUCOSE, BUN, CREATININE, CA)2022-05-29 15:33:06 Test Item Value Reference Range Interpretation Comments NA (test code = 139 mmol/L 135-145 3200160431) K (test code = 4.2 mmol/L 3.5-5.0 5135099900) CL (test code = 104 mmol/L 98-108 3738951035) CO2 TOTAL (test code = 29 mmol/L 23-31 6602815495) AGAP (test code = 6 2-16 4376848942) BUN (test code = 25 mg/dL 7-23 H 1922016408) GLUCOSE (test code = 85 mg/dL 70-110 5970447512) CREATININE (test code = 1.02 mg/dL 0.60-1.25 8050979317) CALCIUM (test code = 8.7 mg/dL 8.6-10.6 0757788600) eGFR (test code = 74.8 mL/min/1.73m2 8491347166) DEWAYNE (test code = DEWAYNE) Association of [...] tests). Lab Interpretation Abnormal (test code = 65476-6) [facility] METABOLIC PANEL (NA, K, CL, CO2, GLUCOSE, BUN, CREATININE, CA)2022-05-29 15:33:06 Test Item Value Reference Range Interpretation Comments NA (test code = 139 mmol/L 135-145 5721316604) K (test code = 4.2 mmol/L 3.5-5.0 1223454348) CL (test code = 104 mmol/L 98-108 7404634265) CO2 TOTAL (test code = 29 mmol/L 23-31 9770723490) AGAP (test code = 6 2-16 2041588916) BUN (test code = 25 mg/dL 7-23 H 3809388779) GLUCOSE (test code = 85 mg/dL 70-110 6575902166) CREATININE (test code = 1.02 mg/dL 0.60-1.25 2377249947) CALCIUM (test code = 8.7 mg/dL 8.6-10.6 1176662833) eGFR (test code = 74.8 mL/min/1.73m2 3795158960) DEWAYNE (test code = DEWAYNE) Association of [...] tests). Lab Interpretation Abnormal (test code = 41065-9) [facility]2023-04-16 15:15:42 Test Item Value Reference Range Interpretation Comments Fibrinogen (test code = 8492916503) 368 mg/dL 167-453 Lab Interpretation (test code = Normal 51827-7) [facility]:15:42 Test Item Value Reference Range Interpretation Comments Fibrinogen (test code = 5417508481) 368 mg/dL 167-453 Lab Interpretation (test code = Normal 42903-5) [facility] 15:15:42 Test Item Value Reference Range Interpretation Comments Fibrinogen (test code = 8146177867) 368 mg/dL 167-453 Lab Interpretation (test code = Normal 21610-9) [place] [address]-04-16 15:15:42 Test Item Value Reference Range Interpretation Comments Fibrinogen (test code = 8105646510) 368 mg/dL 167-453 Lab Interpretation (test code = Normal 50807-6) [facility] WITH [id number] 15:09:40 Test Item Value Reference Range Interpretation [...] RDW-SD (test code = 47.6 fL 38.5-51.6 04496-4) RDW-CV (test code = 14.7 % 12.1-15.4 788-0) PLT (test code = 252 See_Comment [Automated 777-3) message] The sy stem which generated this result transmitted reference range : 150 - 328 10*3/ ?L. The reference r mitra was not used to interpret this result as normal/abnormal . MPV (test code = 9.1 fL 9.8-13.0 L 94817-7) NRBC/100 WBC (test 0.0 See_Comment [Automat ed code = 1919975724) message] The system which generated this result transmitted reference range : 0.0 - 10.0 /100 WBCs. The refer ence range was not u sed to interpret th is result as normal/abnormal . NRBC x10^3 (test code See_Comment [Auto mated = 9153859127) message] The s ystem which generated this result transmitted reference range : 10*3/?L. The reference range was not used to interpret this result as normal/abnormal . GRAN MAT (NEUT) % 53.7 % (test code = 770-8) IMM GRAN % (test code 1.90 % = 0075684203) LYMPH % (test code = 29.6 % 736-9) MONO % (test code = 8.1 % 5905-5) EOS % (test code = 5.7 % 713-8) BASO % (test code = 1.0 % 706-2) GRAN MAT x10^3(ANC) 4.44 10*3/uL 1.99-6.95 (test code = 7379251781) IMM GRAN x10^3 (test 0.16 10*3/uL 0.00-0.06 H code = 6037533625) LYMPH x10^3 (test code 2.45 10*3/uL 1.09-3.23 = 731-0) MONO x10^3 (test code 0.67 10*3/uL 0.36-1.02 = 742-7) EOS x10^3 (test code = 0.47 10*3/uL 0.06-0.53 711-2) BASO x10^3 (test code 0.08 10*3/uL 0.01-0.09 = 704-7) Lab Interpretation Abnormal (test code = 93076-6) [facility] WITH [id number] 15:09:40 Test Item Value Reference Range Interpretation Comments WBC (test code = 8.27 See_Comment [Automated 1590-2) message] The sy stem which generated this result transmitted reference range : 4.20 - 10.70 10*3/?L. The reference range was not used to interpret this result as normal/abnormal . RBC (test code = 4.18 See_Comment L [Automated 649-8) message] The sy stem which generated this [...] RDW-SD (test code = 47.6 fL 38.5-51.6 11565-0) RDW-CV (test code = 14.7 % 12.1-15.4 788-0) PLT (test code = 252 See_Comment [Automated 777-3) message] The sy stem which generated this result transmitted reference range : 150 - 328 10*3/ ?L. The reference r mitra was not used to interpret this result as normal/abnormal . MPV (test code = 9.1 fL 9.8-13.0 L 35848-2) NRBC/100 WBC (test 0.0 See_Comment [Automat ed code = 1352542079) message] The system which generated this result transmitted reference range : 0.0 - 10.0 /100 WBCs. The refer ence range was not u sed to interpret th is result as normal/abnormal . NRBC x10^3 (test code See_Comment [Auto mated = 6929475271) message] The s ystem which generated this result transmitted reference range : 10*3/?L. The reference range was not used to interpret this result as normal/abnormal . GRAN MAT (NEUT) % 53.7 % (test code = 770-8) IMM GRAN % (test code 1.90 % = 1591779472) LYMPH % (test code = 29.6 % 736-9) MONO % (test code = 8.1 % 5905-5) EOS % (test code = 5.7 % 713-8) BASO % (test code = 1.0 % 706-2) GRAN MAT x10^3(ANC) 4.44 10*3/uL 1.99-6.95 (test code = 3334347312) IMM GRAN x10^3 (test 0.16 10*3/uL 0.00-0.06 H code = 8960619061) LYMPH x10^3 (test code 2.45 10*3/uL 1.09-3.23 = 731-0) MONO x10^3 (test code 0.67 10*3/uL 0.36-1.02 = 742-7) EOS x10^3 (test code = 0.47 10*3/uL 0.06-0.53 711-2) BASO x10^3 (test code 0.08 10*3/uL 0.01-0.09 = 704-7) Lab Interpretation Abnormal (test code = 10095-6) [facility] WITH [id number] 15:09:40 Test Item Value Reference Range Interpretation Comments WBC (test code = 8.27 See_Comment [Automated 2990-2) message] The sy stem which generated this result transmitted reference range : 4.20 - 10.70 10*3/?L. The reference range was not used to interpret this result as normal/abnormal . RBC (test code = 4.18 See_Comment L [Automated 259-8) message] The sy stem which generated this [...] RDW-SD (test code = 47.6 fL 38.5-51.6 48371-0) RDW-CV (test code = 14.7 % 12.1-15.4 788-0) PLT (test code = 252 See_Comment [Automated 777-3) message] The sy stem which generated this result transmitted reference range : 150 - 328 10*3/ ?L. The reference r mitra was not used to interpret this result as normal/abnormal . MPV (test code = 9.1 fL 9.8-13.0 L 51496-1) NRBC/100 WBC (test 0.0 See_Comment [Automat ed code = 5800631911) message] The system which generated this result transmitted reference range : 0.0 - 10.0 /100 WBCs. The refer ence range was not u sed to interpret th is result as normal/abnormal . NRBC x10^3 (test code See_Comment [Auto mated = 0619339246) message] The s ystem which generated this result transmitted reference range : 10*3/?L. The reference range was not used to interpret this result as normal/abnormal . GRAN MAT (NEUT) % 53.7 % (test code = 770-8) IMM GRAN % (test code 1.90 % = 4958374016) LYMPH % (test code = 29.6 % 736-9) MONO % (test code = 8.1 % 5905-5) EOS % (test code = 5.7 % 713-8) BASO % (test code = 1.0 % 706-2) GRAN MAT x10^3(ANC) 4.44 10*3/uL 1.99-6.95 (test code = 7534866632) IMM GRAN x10^3 (test 0.16 10*3/uL 0.00-0.06 H code = 2679110938) LYMPH x10^3 (test code 2.45 10*3/uL 1.09-3.23 = 731-0) MONO x10^3 (test code 0.67 10*3/uL 0.36-1.02 = 742-7) EOS x10^3 (test code = 0.47 10*3/uL 0.06-0.53 711-2) BASO x10^3 (test code 0.08 10*3/uL 0.01-0.09 = 704-7) Lab Interpretation Abnormal (test code = 49910-7) [facility] WITH [id number] 15:09:40 Test Item Value Reference Range Interpretation [...] RDW-SD (test code = 47.6 fL 38.5-51.6 58617-2) RDW-CV (test code = 14.7 % 12.1-15.4 788-0) PLT (test code = 252 See_Comment [Automated 777-3) message] The sy stem which generated this result transmitted reference range : 150 - 328 10*3/ ?L. The reference r mitra was not used to interpret this result as normal/abnormal . MPV (test code = 9.1 fL 9.8-13.0 L 05994-0) NRBC/100 WBC (test 0.0 See_Comment [Automat ed code = 8650132004) message] The system which generated this result transmitted reference range : 0.0 - 10.0 /100 WBCs. The refer ence range was not u sed to interpret th is result as normal/abnormal . NRBC x10^3 (test code See_Comment [Auto mated = 7014985316) message] The s ystem which generated this result transmitted reference range : 10*3/?L. The reference range was not used to interpret this result as normal/abnormal . GRAN MAT (NEUT) % 53.7 % (test code = 770-8) IMM GRAN % (test code 1.90 % = 2312372071) LYMPH % (test code = 29.6 % 736-9) MONO % (test code = 8.1 % 5905-5) EOS % (test code = 5.7 % 713-8) BASO % (test code = 1.0 % 706-2) GRAN MAT x10^3(ANC) 4.44 10*3/uL 1.99-6.95 (test code = 4971082962) IMM GRAN x10^3 (test 0.16 10*3/uL 0.00-0.06 H code = 8571582848) LYMPH x10^3 (test code 2.45 10*3/uL 1.09-3.23 = 731-0) MONO x10^3 (test code 0.67 10*3/uL 0.36-1.02 = 742-7) EOS x10^3 (test code = 0.47 10*3/uL 0.06-0.53 711-2) BASO x10^3 (test code 0.08 10*3/uL 0.01-0.09 = 704-7) Lab Interpretation Abnormal (test code = 08368-4) [facility] (for use with Heparin Infusion)2022-05-29 11:36:15 Test Item Value Reference Range Interpretation Comments APTT Patient (test code 52 See_Comment H [Au tomated message] = 3173-2) The system [employer] generated this result transmitted ref erence range: 26 - 36 Seconds. The reference range was not used to int erpret this result as normal/abnormal . Lab Interpretation (test Abnormal code = 95571-3) [facility] (for use with Heparin Infusion)2022-05-29 11:36:15 Test Item Value Reference Range Interpretation Comments APTT Patient (test code 52 See_Comment H [Au tomated message] = 3173-2) The system [employer] generated this result transmitted ref erence range: 26 - 36 Seconds. The reference range was not used to int erpret this result as normal/abnormal . Lab Interpretation (test Abnormal code = 77666-6) [facility] (for use with Heparin Infusion)2022-05-29 11:36:15 Test Item Value Reference Range Interpretation Comments APTT Patient (test code 52 See_Comment H [Au tomated message] = 3173-2) The system [employer] generated this result transmitted ref erence range: 26 - 36 Seconds. The reference range was not used to int erpret this result as normal/abnormal . Lab Interpretation (test Abnormal code = 82872-5) [facility] 11:36:15 Test Item Value Reference Range Interpretation Comments APTT Patient (test code 52 See_Comment H [Au tomated message] = 7939-2) The system [employer] generated this result transmitted ref erence range: 26 - 36 Seconds. The reference range was not used to int erpret this result as normal/abnormal . Lab Interpretation (test Abnormal code = 59005-6) [facility] METABOLIC PANEL (NA, K, CL, CO2, GLUCOSE, BUN, CREATININE, CA)2022-05-29 11:35:55 Test Item Value Reference Range Interpretation Comments NA (test code = 136 mmol/L 135-145 2687562944) K (test code = 4.9 mmol/L 3.5-5.0 Slight 2735083619) hemolysis CL (test code = 106 mmol/L 98-108 6548804639) CO2 TOTAL (test code 28 mmol/L 23-31 = 4173357213) AGAP (test code = 2 2-16 2290028068) BUN (test code = 26 mg/dL 7-23 H Slight 6283195864) hemolysis GLUCOSE (test code = 88 mg/dL 70-110 0146309131) CREATININE (test code 0.86 mg/dL 0.60-1.25 = 6551058855) CALCIUM (test code = 8.4 mg/dL 8.6-10.6 L 5726672861) eGFR (test code = 91.0 mL/min/1.73m2 6967231296) DEWAYNE (test code = DEWAYNE) Association of [...] tests). Lab Interpretation Abnormal (test code = 30243-2) [facility] 11:35:55 Test Item Value Reference Range Interpretation Comments MAGNESIUM (test code = 8972828534) 2.4 mg/dL 1.7-2.4 Lab Interpretation (test code = Normal 40640-9) [facility] (NA, K, CL, CO2, GLUCOSE, BUN, CREATININE, CA)2022-05-29 11:35:55 Test Item Value Reference Range Interpretation Comments NA (test code = 136 mmol/L 135-145 5457637506) K (test code = 4.9 mmol/L 3.5-5.0 Slight 3883578913) hemolysis CL (test code = 106 mmol/L 98-108 9658967731) CO2 TOTAL (test code 28 mmol/L 23-31 = 9399578521) AGAP (test code = 2 2-16 1752336964) BUN (test code = 26 mg/dL 7-23 H Slight 8642679897) hemolysis GLUCOSE (test code = 88 mg/dL 70-110 8439319623) CREATININE (test code 0.86 mg/dL 0.60-1.25 = 7006708375) CALCIUM (test code = 8.4 mg/dL 8.6-10.6 L 8156409790) eGFR (test code = 91.0 mL/min/1.73m2 6827432007) DEWAYNE (test code = DEWAYNE) Association of [...] tests). Lab Interpretation Abnormal (test code = 91517-9) [facility]55 Test Item Value Reference Range Interpretation Comments MAGNESIUM (test code = 2105096737) 2.4 mg/dL 1.7-2.4 Lab Interpretation (test code = Normal 32832-6) [facility] (NA, K, CL, CO2, GLUCOSE, BUN, CREATININE, CA)2022-05-29 11:35:55 Test Item Value Reference Range Interpretation Comments NA (test code = 136 mmol/L 135-145 7279162733) K (test code = 4.9 mmol/L 3.5-5.0 Slight 3427030988) hemolysis CL (test code = 106 mmol/L 98-108 3001254371) CO2 TOTAL (test code 28 mmol/L 23-31 = 6929153626) AGAP (test code = 2 2-16 7286083272) BUN (test code = 26 mg/dL 7-23 H Slight 2922361246) hemolysis GLUCOSE (test code = 88 mg/dL 70-110 2109229207) CREATININE (test code 0.86 mg/dL 0.60-1.25 = 9790580596) CALCIUM (test code = 8.4 mg/dL 8.6-10.6 L 9834374162) eGFR (test code = 91.0 mL/min/1.73m2 2455838287) DEWAYNE (test code = DEWAYNE) Association of [...] tests). Lab Interpretation Abnormal (test code = 31679-1) [facility] Test Item Value Reference Range Interpretation Comments MAGNESIUM (test code = 7918841713) 2.4 mg/dL 1.7-2.4 Lab Interpretation (test code = Normal 41568-0) [facility] METABOLIC PANEL (NA, K, CL, CO2, GLUCOSE, BUN, CREATININE, CA)2022-05-29 11:35:55 Test Item Value Reference Range Interpretation Comments NA (test code = 136 mmol/L 135-145 8097288241) K (test code = 4.9 mmol/L 3.5-5.0 Slight 0620410020) hemolysis CL (test code = 106 mmol/L 98-108 7591870571) CO2 TOTAL (test code 28 mmol/L 23-31 = 4791467672) AGAP (test code = 2 2-16 8026001148) BUN (test code = 26 mg/dL 7-23 H Slight 4855145195) hemolysis GLUCOSE (test code = 88 mg/dL 70-110 5066948196) CREATININE (test code 0.86 mg/dL 0.60-1.25 = 9431938845) CALCIUM (test code = 8.4 mg/dL 8.6-10.6 L 0113726246) eGFR (test code = 91.0 mL/min/1.73m2 3042368307) DEWAYNE (test code = DEWAYNE) Association of [...] tests). Lab Interpretation Abnormal (test code = 97275-7) [facility] 11:35:55 Test Item Value Reference Range Interpretation Comments MAGNESIUM (test code = 5331992138) 2.4 mg/dL 1.7-2.4 Lab Interpretation (test code = Normal 23340-1) [facility] [id number] 11:28:31 Test Item Value Reference Range Interpretation Comments WBC (test code = 6690-2) 7.81 See_Comment [A utomated message] The system [employer] generated this result transmit elizabeth reference range : 4.20 - 10.70 10*3/?L. The reference range was not used to interpret this result as normal/abnormal . RBC (test code = 789-8) 4.04 See_Comment L [Au tomated message] The system [employer] generated this result transmit elizabeth reference range [...] 252 See_Comment [Au tomated message] The system [employer] generated this result transmit elizabeth reference range : 150 - 328 10*3/?L. The reference range was not used to interpret this result as normal/abnormal . MPV (test code = 9.6 fL 9.8-13.0 L 46017-2) RDW-CV (test code = 14.6 % 12.1-15.4 788-0) RDW-SD (test code = 46.5 fL 38.5-51.6 06106-2) NRBC x10^3 (test code = See_Comment [Au tomated message] 2431351400) The system [employer] generated this result transmit elizabeth reference range : 10*3/?L. The reference range was not used to interpret this result as normal/abnormal . NRBC/100 WBC (test code 0.0 See_Comment [Au tomated message] = 4728497950) The system [employer] generated this result transmit elizabeth reference range : 0.0 - 10.0 /100 WBC s. The reference r mitra was not used to interpret this result as normal/abnormal . IPF % (test code = 5223690844) Lab Interpretation (test Abnormal code = 26024-4) [facility] Without [id number] 11:28:31 Test Item Value Reference Range Interpretation Comments WBC (test code = 6690-2) 7.81 See_Comment [A utomated message] The system [employer] generated this result transmit elizabeth reference range : 4.20 - 10.70 10*3/?L. The reference range was not used to interpret this result as normal/abnormal . RBC (test code = 789-8) 4.04 See_Comment L [Au tomated message] The system [employer] generated this result transmit elizabeth reference range [...] 252 See_Comment [Au tomated message] The system [employer] generated this result transmit elizabeth reference range : 150 - 328 10*3/?L. The reference range was not used to interpret this result as normal/abnormal . MPV (test code = 9.6 fL 9.8-13.0 L 85631-8) RDW-CV (test code = 14.6 % 12.1-15.4 788-0) RDW-SD (test code = 46.5 fL 38.5-51.6 64426-9) NRBC x10^3 (test code = See_Comment [Au tomated message] 0376909415) The system [employer] generated this result transmit elizabeth reference range : 10*3/?L. The reference range was not used to interpret this result as normal/abnormal . NRBC/100 WBC (test code 0.0 See_Comment [Au tomated message] = 0226299948) The system [facility] generated this result transmit elizabeth reference range : 0.0 - 10.0 /100 WBC s. The reference r mitra was not used to interpret this result as normal/abnormal . IPF % (test code = 3133815652) Lab Interpretation (test Abnormal code = 03363-0) [facility] Without [id number] 11:28:31 Test Item Value Reference Range Interpretation Comments WBC (test code = 6690-2) 7.81 See_Comment [A utomated message] The system [employer] generated this result transmit elizabeth reference range : 4.20 - 10.70 10*3/?L. The reference range was not used to interpret this result as normal/abnormal . RBC (test code = 789-8) 4.04 See_Comment L [Au tomated message] The system [employer] generated this result transmit elizabeth reference range [...] 252 See_Comment [Au tomated message] The system [employer] generated this result transmit elizabeth reference range : 150 - 328 10*3/?L. The reference range was not used to interpret this result as normal/abnormal . MPV (test code = 9.6 fL 9.8-13.0 L 80444-2) RDW-CV (test code = 14.6 % 12.1-15.4 788-0) RDW-SD (test code = 46.5 fL 38.5-51.6 79485-5) NRBC x10^3 (test code = See_Comment [Au tomated message] 8737162334) The system [employer] generated this result transmit elizabeth reference range : 10*3/?L. The reference range was not used to interpret this result as normal/abnormal . NRBC/100 WBC (test code 0.0 See_Comment [Au tomated message] = 2962153696) The system [facility] generated this result transmit elizabeth reference range : 0.0 - 10.0 /100 WBC s. The reference r mitra was not used to interpret this result as normal/abnormal . IPF % (test code = 0661367735) Lab Interpretation (test Abnormal code = 81435-2) [facility] Without [id number] 11:28:31 Test Item Value Reference Range Interpretation Comments WBC (test code = 6690-2) 7.81 See_Comment [A utomated message] The system [employer] generated this result transmit elizabeth reference range : 4.20 - 10.70 10*3/?L. The reference range was not used to interpret this result as normal/abnormal . RBC (test code = 789-8) 4.04 See_Comment L [Au tomated message] The system [employer] generated this result transmit elizabeth reference range [...] 252 See_Comment [Au tomated message] The system [employer] generated this result transmit elizabeth reference range : 150 - 328 10*3/?L. The reference range was not used to interpret this result as normal/abnormal . MPV (test code = 9.6 fL 9.8-13.0 L 15398-6) RDW-CV (test code = 14.6 % 12.1-15.4 788-0) RDW-SD (test code = 46.5 fL 38.5-51.6 25162-5) NRBC x10^3 (test code = See_Comment [Au tomated message] 3564471446) The system [employer] generated this result transmit elizabeth reference range : 10*3/?L. The reference range was not used to interpret this result as normal/abnormal . NRBC/100 WBC (test code 0.0 See_Comment [Au tomated message] = 4181294646) The system [employer] generated this result transmit elizbaeth reference range : 0.0 - 10.0 /100 WBC s. The reference r mitra was not used to interpret this result as normal/abnormal . IPF % (test code = 0507031473) Lab Interpretation (test Abnormal code = 63728-3) [facility] [id number] 18:45:15 Test Item Value Reference Range Interpretation Comments Factor 2 [id number] Heterozygous Normal Mutation (test code = 7599960629) DEWAYNE (test code = Phenotype DEWAYNE) Characteristics: [...] further increased for homozygotes. Mutation Tested: F2 c.28174J>A (S54353B). Clinical Sensitivity for Venous Thrombosis: Approximately 10%. Methodology: Polymerase chain reaction and fluorescence monitoring Limitations: The performance of this assay has not been evaluated with samples from pediatric patients. Counseling and informed consent are recommended for genetic testing. References: OMIM: 502267 [email or web address].nlm.nih.gov/c ondition/prothrombin-thro mbophilia [facility] [id number] 18:45:15 Test Item Value Reference Range Interpretation Comments FACTOR 5 LEIDEN Heterozygous Normal (test code = 1235355851) DEWAYNE (test code = Phenotype Characteristics: DEWAYNE) [...] the Factor 5 Leiden mutation is c.1601G>A (p.Iuo878Mpg). Methodology: Polymerase chain reaction and fluorescence monitoring. Limitations: Rare Factor V mutations (I9296F, R3591Y, and T7981J) and any additional SNPs in the probe binding region may interfere with the target detection and yield an INVALID result. The performance of this assay has not been evaluated with samples from pediatric patients. Counseling and informed consent are recommended for genetic testing. References: OMIM: 886087 [email or web address]://ghr.nlm.nih.gov/co ndition/dsihwu-o-wkhzdn- rombophilia [facility] [id number] 18:45:15 Test Item Value Reference Range Interpretation Comments Factor 2 J05756K Heterozygous Normal Mutation (test code = 8073990817) DEWAYNE (test code = Phenotype DEWAYNE) Characteristics: [...] further increased for homozygotes. Mutation Tested: F2 c.10955A>A (T12116H). Clinical Sensitivity for Venous Thrombosis: Approximately 10%. Methodology: Polymerase chain reaction and fluorescence monitoring Limitations: The performance of this assay has not been evaluated with samples from pediatric patients. Counseling and informed consent are recommended for genetic testing. References: OMIM: 850845 [email or web address]://ghr.nlm.nih.gov/c ondition/prothrombin-thro mbophilia [facility] [id number] 18:45:15 Test Item Value Reference Range Interpretation Comments FACTOR 5 LEIDEN Heterozygous Normal (test code = 8916345307) DEWAYNE (test code = Phenotype Characteristics: DEWAYNE) [...] the Factor 5 Leiden mutation is c.1601G>A (p.Ubq033Lfe). Methodology: Polymerase chain reaction and fluorescence monitoring. Limitations: Rare Factor V mutations (C1443G, P1685Z, and T8190R) and any additional SNPs in the probe binding region may interfere with the target detection and yield an INVALID result. The performance of this assay has not been evaluated with samples from pediatric patients. Counseling and informed consent are recommended for genetic testing. References: OMIM: 085961 https://ghr.nlm.nih.gov/co ndition/usvosu-g-toszue-th rombophilia [facility] [id number] 18:45:15 Test Item Value Reference Range Interpretation Comments Factor 2 O25986T Heterozygous Normal Mutation (test code = 4109654098) DEWAYNE (test code = Phenotype DEWAYNE) Characteristics: [...] further increased for homozygotes. Mutation Tested: F2 c.16556F>A (J42811S). Clinical Sensitivity for Venous Thrombosis: Approximately 10%. Methodology: Polymerase chain reaction and fluorescence monitoring Limitations: The performance of this assay has not been evaluated with samples from pediatric patients. Counseling and informed consent are recommended for genetic testing. References: OMIM: 370672 https://ghr.nlm.nih.gov/c ondition/prothrombin-thro mbophilia [facility] [id number] 18:45:15 Test Item Value Reference Range Interpretation Comments FACTOR 5 LEIDEN Heterozygous Normal (test code = 5547322909) DEWAYNE (test code = Phenotype Characteristics: DEWAYNE) [...] the Factor 5 Leiden mutation is c.1601G>A (p.Jmx066Yqp). Methodology: Polymerase chain reaction and fluorescence monitoring. Limitations: Rare Factor V mutations (E7355O, D6711O, and K4877L) and any additional SNPs in the probe binding region may interfere with the target detection and yield an INVALID result. The performance of this assay has not been evaluated with samples from pediatric patients. Counseling and informed consent are recommended for genetic testing. References: OMIM: 903709 https://ghr.nlm.nih.gov/co ndition/txkuxc-b-yqbwhz-th rombophilia [facility] [id number] 18:45:15 Test Item Value Reference Range Interpretation Comments Factor 2 T72848G Heterozygous Normal Mutation (test code = 8557190343) DEWAYNE (test code = Phenotype DEWAYNE) Characteristics: [...] further increased for homozygotes. Mutation Tested: F2 c.78914L>A (P52681P). Clinical Sensitivity for Venous Thrombosis: Approximately 10%. Methodology: Polymerase chain reaction and fluorescence monitoring Limitations: The performance of this assay has not been evaluated with samples from pediatric patients. Counseling and informed consent are recommended for genetic testing. References: OMIM: 978038 https://ghr.nlm.nih.gov/c ondition/prothrombin-thro mbophilia [facility] [id number] 18:45:15 Test Item Value Reference Range Interpretation Comments FACTOR 5 LEIDEN Heterozygous Normal (test code = 3107040728) DEWAYNE (test code = Phenotype Characteristics: DEWAYNE) [...] the Factor 5 Leiden mutation is c.1601G>A (p.Ayh628Gsz). Methodology: Polymerase chain reaction and fluorescence monitoring. Limitations: Rare Factor V mutations (L3042B, X2880X, and F5561Y) and any additional SNPs in the probe binding region may interfere with the target detection and yield an INVALID result. The performance of this assay has not been evaluated with samples from pediatric patients. Counseling and informed consent are recommended for genetic testing. References: OMIM: 595242 https://ghr.nlm.nih.gov/co ndition/ssmdji-p-kyugyl-th rombophilia [facility] (NA, K, CL, CO2, GLUCOSE, BUN, CREATININE, CA)2022-05-28 09:52:42 Test Item Value Reference Range Interpretation Comments NA (test code = 137 mmol/L 135-145 9224231582) K (test code = 3.8 mmol/L 3.5-5.0 5977244175) CL (test code = 103 mmol/L 98-108 7315796008) CO2 TOTAL (test code = 27 mmol/L 23-31 5538220133) AGAP (test code = 7 2-16 5941014335) BUN (test code = 27 mg/dL 7-23 H 2572638482) GLUCOSE (test code = 105 mg/dL 70-110 5280053655) CREATININE (test code = 0.84 mg/dL 0.60-1.25 9352657841) CALCIUM (test code = 8.5 mg/dL 8.6-10.6 L 4485917908) eGFR (test code = 93.5 mL/min/1.73m2 4351318109) DEWAYNE (test code = DEWAYNE) Association of [...] tests). Lab Interpretation Abnormal (test code = 38780-8) [facility] METABOLIC PANEL (NA, K, CL, CO2, GLUCOSE, BUN, CREATININE, CA)2022-05-28 09:52:42 Test Item Value Reference Range Interpretation Comments NA (test code = 137 mmol/L 135-145 3956362679) K (test code = 3.8 mmol/L 3.5-5.0 3652944278) CL (test code = 103 mmol/L 98-108 8356816940) CO2 TOTAL (test code = 27 mmol/L 23-31 1513096458) AGAP (test code = 7 2-16 2150376788) BUN (test code = 27 mg/dL 7-23 H 2708613757) GLUCOSE (test code = 105 mg/dL 70-110 1992918981) CREATININE (test code = 0.84 mg/dL 0.60-1.25 7097389085) CALCIUM (test code = 8.5 mg/dL 8.6-10.6 L 0530476979) eGFR (test code = 93.5 mL/min/1.73m2 0337599497) DEWAYNE (test code = DEWAYNE) Association of [...] tests). Lab Interpretation Abnormal (test code = 52314-2) [facility] METABOLIC PANEL (NA, K, CL, CO2, GLUCOSE, BUN, CREATININE, CA)2022-05-28 09:52:42 Test Item Value Reference Range Interpretation Comments NA (test code = 137 mmol/L 135-145 1060051685) K (test code = 3.8 mmol/L 3.5-5.0 3002090673) CL (test code = 103 mmol/L 98-108 7100117171) CO2 TOTAL (test code = 27 mmol/L 23-31 5742577234) AGAP (test code = 7 2-16 8210512756) BUN (test code = 27 mg/dL 7-23 H 5189687950) GLUCOSE (test code = 105 mg/dL 70-110 0056063824) CREATININE (test code = 0.84 mg/dL 0.60-1.25 8085419093) CALCIUM (test code = 8.5 mg/dL 8.6-10.6 L 6326818941) eGFR (test code = 93.5 mL/min/1.73m2 0117915729) DEWAYNE (test code = DEWAYNE) Association of [...] tests). Lab Interpretation Abnormal (test code = 70741-6) [facility] METABOLIC PANEL (NA, K, CL, CO2, GLUCOSE, BUN, CREATININE, CA)2022-05-28 09:52:42 Test Item Value Reference Range Interpretation Comments NA (test code = 137 mmol/L 135-145 3782946006) K (test code = 3.8 mmol/L 3.5-5.0 5602203534) CL (test code = 103 mmol/L 98-108 1227067017) CO2 TOTAL (test code = 27 mmol/L 23-31 8516549010) AGAP (test code = 7 2-16 3834046012) BUN (test code = 27 mg/dL 7-23 H 9421676827) GLUCOSE (test code = 105 mg/dL 70-110 7957693630) CREATININE (test code = 0.84 mg/dL 0.60-1.25 5947366312) CALCIUM (test code = 8.5 mg/dL 8.6-10.6 L 6709763461) eGFR (test code = 93.5 mL/min/1.73m2 8030318297) DEWAYNE (test code = DEWAYNE) Association of [...] tests). Lab Interpretation Abnormal (test code = 60350-6) [facility] WITH [id number] 09:29:20 Test Item Value Reference Range Interpretation [...] RDW-SD (test code = 44.7 fL 38.5-51.6 02672-7) RDW-CV (test code = 14.5 % 12.1-15.4 788-0) PLT (test code = 199 See_Comment [Automated 777-3) message] The sy stem which generated this result transmitted reference range : 150 - 328 10*3/ ?L. The reference r mitra was not used to interpret this result as normal/abnormal . MPV (test code = 9.3 fL 9.8-13.0 L 74118-0) NRBC/100 WBC (test 0.0 See_Comment [Automat ed code = 4529446183) message] The system which generated this result transmitted reference range : 0.0 - 10.0 /100 WBCs. The refer ence range was not u sed to interpret th is result as normal/abnormal . NRBC x10^3 (test code See_Comment [Auto mated = 7399443045) message] The s ystem which generated this result transmitted reference range : 10*3/?L. The reference range was not used to interpret this result as normal/abnormal . GRAN MAT (NEUT) % 56.1 % (test code = 770-8) IMM GRAN % (test code 1.20 % = 0679918915) LYMPH % (test code = 30.8 % 736-9) MONO % (test code = 7.6 % 5905-5) EOS % (test code = 3.7 % 713-8) BASO % (test code = 0.6 % 706-2) GRAN MAT x10^3(ANC) 4.68 10*3/uL 1.99-6.95 (test code = 9739112084) IMM GRAN x10^3 (test 0.10 10*3/uL 0.00-0.06 H code = 8924017622) LYMPH x10^3 (test code 2.57 10*3/uL 1.09-3.23 = 731-0) MONO x10^3 (test code 0.63 10*3/uL 0.36-1.02 = 742-7) EOS x10^3 (test code = 0.31 10*3/uL 0.06-0.53 711-2) BASO x10^3 (test code 0.05 10*3/uL 0.01-0.09 = 704-7) Lab Interpretation Abnormal (test code = 11498-6) [facility] WITH [id number] 09:29:20 Test Item Value Reference Range Interpretation [...] RDW-SD (test code = 44.7 fL 38.5-51.6 61816-9) RDW-CV (test code = 14.5 % 12.1-15.4 788-0) PLT (test code = 199 See_Comment [Automated 777-3) message] The sy stem which generated this result transmitted reference range : 150 - 328 10*3/ ?L. The reference r mitra was not used to interpret this result as normal/abnormal . MPV (test code = 9.3 fL 9.8-13.0 L 62573-3) NRBC/100 WBC (test 0.0 See_Comment [Automat ed code = 8197626260) message] The system which generated this result transmitted reference range : 0.0 - 10.0 /100 WBCs. The refer ence range was not u sed to interpret th is result as normal/abnormal . NRBC x10^3 (test code See_Comment [Auto mated = 3592550042) message] The s ystem which generated this result transmitted reference range : 10*3/?L. The reference range was not used to interpret this result as normal/abnormal . GRAN MAT (NEUT) % 56.1 % (test code = 770-8) IMM GRAN % (test code 1.20 % = 5783765233) LYMPH % (test code = 30.8 % 736-9) MONO % (test code = 7.6 % 5905-5) EOS % (test code = 3.7 % 713-8) BASO % (test code = 0.6 % 706-2) GRAN MAT x10^3(ANC) 4.68 10*3/uL 1.99-6.95 (test code = 3729238875) IMM GRAN x10^3 (test 0.10 10*3/uL 0.00-0.06 H code = 5880636450) LYMPH x10^3 (test code 2.57 10*3/uL 1.09-3.23 = 731-0) MONO x10^3 (test code 0.63 10*3/uL 0.36-1.02 = 742-7) EOS x10^3 (test code = 0.31 10*3/uL 0.06-0.53 711-2) BASO x10^3 (test code 0.05 10*3/uL 0.01-0.09 = 704-7) Lab Interpretation Abnormal (test code = 95613-0) [facility] WITH [id number] 09:29:20 Test Item Value Reference Range Interpretation Comments WBC (test code = 8.34 See_Comment [Automated 0190-2) message] The sy stem which generated this result transmitted reference range : 4.20 - 10.70 10*3/?L. The reference range was not used to interpret this result as normal/abnormal . RBC (test code = 4.08 See_Comment L [Automated 499-8) message] The sy [...] RDW-SD (test code = 44.7 fL 38.5-51.6 78798-1) RDW-CV (test code = 14.5 % 12.1-15.4 788-0) PLT (test code = 199 See_Comment [Automated 777-3) message] The sy stem which generated this result transmitted reference range : 150 - 328 10*3/ ?L. The reference r mitra was not used to interpret this result as normal/abnormal . MPV (test code = 9.3 fL 9.8-13.0 L 13471-6) NRBC/100 WBC (test 0.0 See_Comment [Automat ed code = 7370094237) message] The system which generated this result transmitted reference range : 0.0 - 10.0 /100 WBCs. The refer ence range was not u sed to interpret th is result as normal/abnormal . NRBC x10^3 (test code See_Comment [Auto mated = 3889750269) message] The s ystem which generated this result transmitted reference range : 10*3/?L. The reference range was not used to interpret this result as normal/abnormal . GRAN MAT (NEUT) % 56.1 % (test code = 770-8) IMM GRAN % (test code 1.20 % = 1504045873) LYMPH % (test code = 30.8 % 736-9) MONO % (test code = 7.6 % 5905-5) EOS % (test code = 3.7 % 713-8) BASO % (test code = 0.6 % 706-2) GRAN MAT x10^3(ANC) 4.68 10*3/uL 1.99-6.95 (test code = 9283448270) IMM GRAN x10^3 (test 0.10 10*3/uL 0.00-0.06 H code = 5973749811) LYMPH x10^3 (test code 2.57 10*3/uL 1.09-3.23 = 731-0) MONO x10^3 (test code 0.63 10*3/uL 0.36-1.02 = 742-7) EOS x10^3 (test code = 0.31 10*3/uL 0.06-0.53 711-2) BASO x10^3 (test code 0.05 10*3/uL 0.01-0.09 = 704-7) Lab Interpretation Abnormal (test code = 36102-0) [facility] WITH [id number] 09:29:20 Test Item Value Reference Range Interpretation [...] RDW-SD (test code = 44.7 fL 38.5-51.6 96023-4) RDW-CV (test code = 14.5 % 12.1-15.4 788-0) PLT (test code = 199 See_Comment [Automated 777-3) message] The sy stem which generated this result transmitted reference range : 150 - 328 10*3/ ?L. The reference r mitra was not used to interpret this result as normal/abnormal . MPV (test code = 9.3 fL 9.8-13.0 L 98442-1) NRBC/100 WBC (test 0.0 See_Comment [Automat ed code = 6142877961) message] The system which generated this result transmitted reference range : 0.0 - 10.0 /100 WBCs. The refer ence range was not u sed to interpret th is result as normal/abnormal . NRBC x10^3 (test code See_Comment [Auto mated = 4412720561) message] The s ystem which generated this result transmitted reference range : 10*3/?L. The reference range was not used to interpret this result as normal/abnormal . GRAN MAT (NEUT) % 56.1 % (test code = 770-8) IMM GRAN % (test code 1.20 % = 3204354882) LYMPH % (test code = 30.8 % 736-9) MONO % (test code = 7.6 % 5905-5) EOS % (test code = 3.7 % 713-8) BASO % (test code = 0.6 % 706-2) GRAN MAT x10^3(ANC) 4.68 10*3/uL 1.99-6.95 (test code = 6001363032) IMM GRAN x10^3 (test 0.10 10*3/uL 0.00-0.06 H code = 5384382779) LYMPH x10^3 (test code 2.57 10*3/uL 1.09-3.23 = 731-0) MONO x10^3 (test code 0.63 10*3/uL 0.36-1.02 = 742-7) EOS x10^3 (test code = 0.31 10*3/uL 0.06-0.53 711-2) BASO x10^3 (test code 0.05 10*3/uL 0.01-0.09 = 704-7) Lab Interpretation Abnormal (test code = 03557-9) [facility] [id number] 04:20:00 Test Item Value Reference Interpretation Comments Range Levetiracetam 4.1 ug/mL 10.0-40.0 A This test was developed and (Kaiser), S (test its perfor fritz code = KEPPRA.L) characteris ticsdetermined by [facility]. It has not been cleared orappro mannie by the Food and Drug Administration. Performed at: - [facility] [id number] [place], [place] [id number] Di shahid: Miriam Sevilla MD, Ph one: [phone] Drug Screen,[id number] 20:40:00 Test Item Value Reference Range Interpretation [...] Negative Negative code = UPROP) Comprehensive Metabolic [id number] 19:50:00 Test Item Value Reference Range Interpretation [...] 47 U/L 46-116 N = ALP) Troponin [id number] 19:50:00 Test Item Value Reference Range Interpretation [...] 99th percentile in serialmeasureme nts. Prothrombin Time [id number] 19:50:00 Test Item Value Reference Range Interpretation Comments Prothrombin Time (test code = 10.9 Seconds 9.8-13.4 N PT) INR (test code = INR) 1.0 ratio 0.6-1.2 N Partial Thromboplastin [id number] 19:50:00 Test Item Value Reference Range Interpretation Comments Partial Thromboplastin Time 20.00 Seconds 24.39-37.25 L (test code = PTT) Complete Blood Count Auto [id number] 19:50:00 Test Item Value Reference Range Interpretation [...] code = NRBCP) 0 % B-Type Natriuretic [id number] 19:50:00 Test Item Value Reference Range Interpretation Comments B-Type Natriuretic Peptide (test 30.2 pg/mL 0.0-99.9 N code = BNP) SARS-CoV-2 (COVID-19) RNA [Presence] in Respiratory specimen by COOPER with probe [id number] 03:31:41 Test Item Value Reference Range Interpretation Comments SARS-CoV-2 (COVID-19) RNA Not detected Not-Detected [Presence] in Respiratory specimen by COOPER with probe detection (test code = 05603-5) ENG MANDAEN [facility] Metabolic [id number] 20:19:00 Test Item Value Reference Range Interpretation [...] by th e MDRD study and christopher d be interpretedwith caution.eGFR Re sult Interpretation: eGFR > or = 60 is in t he Normal RangeeGF R < 60 may mean kidney diseaseeGFR < 1 5 may mean kidney failureRange s recommended by the National Kidney Foundation,http ://nkd ep.nih.gov CT HEAD OR BRAIN WO [id number] 18:19:40Location code: R 15HISTORY: Intracranial hemorrhageCOMPARISON: None.TECHNIQUE: [...] Unremarkable nonenhanced CT scan of the brain.Ammonia, [id number] 12:35:00 Test Item Value Reference Range Interpretation Comments Ammonia (test code = NH3) 25.0 umol/L 11.0-35.0 N US DUPLX EXT VEINS COMPRS, [id number] 15:35:40ULTRASOUND: Bilateral lower extremity venous duplex sonography.History: [...] An IVC filter is in place.Impression:Unremarkable exam.Glycosylated [id number] 10:36:00 Test Item Value Reference Range Interpretation Comments HBA1c (test code = HBA1C) 5.1 % 4.8-5.9 N RPR, [id number] 12:10:00 Test Item Value Reference Range Interpretation Comments RPR (test code = RPR) Non-Reactive Non-Reactive N Thyroid Stimulating Hormone (TSH)2016-12-24 06:02:00 Test Item Value Reference Range Interpretation Comments TSH (test code = TSH) 1.03 mIU/mL 0.270-4.200 N Lipid [id number] 05:53:00 Test Item Value Reference Range Interpretation Comments Cholesterol (test 205 mg/dL 0-200 H code = CHOL) Triglycerides (test 69 mg/dL 9-200 N code = TRIG) HDL (test code = 68 mg/dL 40-60 H HDL) Chol/HDL (test code 3.0 Ratio 0.0-5.0 N = CHOLPHDL) LDL, Calculated 123 0-130 N (NOTE)RISK O F HEART (test code = LDLC) DISEASEPu blished by [place] Heart AssociationAnal yte Optimal Boderli ne Increased RiskC HOL <200 200-239 >240TRI G <150 150-199 >200HDL Male: >60 <40HDL Fema le: >60 <50LDL <100 130 -159 >160LDL NEAR OP TIMAL IS 100-129 VLDL (test code = 14 mg/dL 5-40 N VLDL) LDL/HDL (test code = 2 LDLPHDL) Comprehensive Metabolic [id number] 18:42:00 Test Item Value Reference Range Interpretation [...] National Kidney Foundation,http ://nkd ep.nih.gov CBC with Ggkxbztxnxkp3601-50-06 17:59:00 Test Item Value Reference Range Interpretation [...] code = ALYMPH) 1.4 K/cumm 0.5-4.6 N [place] Abs (test code = AMONO) 0.9 K/cumm 0.0-1.2 N Eos Abs (test code = AEOS) 0.01 K/cumm 0.00-0.74 N Baso Abs (test code = ABASO) 0.0 K/cumm 0.00-0.21 N [id number] 18:46:00 Test Item Value Reference Range Interpretation Comments MCH (test code = MCH) 29.8 pg 27.0-31.0 [facility] CenterYfbggxyKKUOMQAQPC5878-12-05 18:46:00 Test Item Value Reference Range Interpretation Comments MCV (test code = MCV) 92.0 80.0-94.0 [facility] [id number] 18:46:00 Test Item Value Reference Range Interpretation Comments Hct (test code = Hct) 44.5 42.0-54.0 [facility] Cent[id number] 18:46:00 Test Item Value Reference Range Interpretation Comments MCHC (test code = MCHC) 32.4 32.0-36.0 [facility] CenterHtbamoyTPMRALAPRB3724-00-77 18:46:00 Test Item Value Reference Range Interpretation Comments [place]-Hep C Ab (test Negative *NA*(07/22/14 code = [place]-Hep C 1:46 PM) Ab) [facility] AND [id number] 18:46:00 Test Item Value Reference Range Interpretation Comments UA Urobilinogen (test code = UA <=1.0 mg/dL 0.1-1.0 Urobilinogen) [facility] AND [id number] 18:46:00 Test Item Value Reference Range Interpretation Comments UA Sq Epi (test code = UA Sq Epi) None Seen [facility] AND [id number] 18:46:00 Test Item Value Reference Range Interpretation Comments UA Leuk Est (test Negative (07/22/14 1:46 code = UA Leuk Est) PM) [facility] AND [id number] 18:46:00 Test Item Value Reference Range Interpretation Comments UA Nitrite (test code Negative (07/22/14 1:46 = UA Nitrite) PM) [facility] AND [id number] 18:46:00 Test Item Value Reference Range Interpretation Comments UA Blood (test code = Negative (07/22/14 1:46 UA Blood) PM) [facility] AND [id number] 18:46:00 Test Item Value Reference Range Interpretation Comments UA Ketones (test code = UA Negative mg/dL Ketones) [facility] AND [id number] 18:46:00 Test Item Value Reference Range Interpretation Comments UA Bili (test code = Negative *NA*(07/22/14 UA Bili) 1:46 PM) [facility] [id number] 18:46:00 Test Item Value Reference Range Interpretation Comments UA Bacteria (test code = UA Occasional /HPF Bacteria) [facility] [id number] 18:46:00 Test Item Value Reference Range Interpretation Comments UA RBC (test code = no gt See_Comment [Automa elizabeth message] The UA RBC) system which ge nerated this result transmit elizabeth reference range : <=2. The reference range was not used to interpr et this result as margaret l/abnormal. [facility] [id number] 18:46:00 Test Item Value Reference Range Interpretation Comments UA WBC (test code = 1 See_Comment [Automa elizabeth message] The UA WBC) system which ge nerated this result transmit elizabeth reference range : <=5. The reference range was not used to interpr et this result as margaret l/abnormal. [facility] [id number] 18:46:00 Test Item Value Reference Range Interpretation Comments UA Glucose (test code = UA Glucose) 30 mg/dL [facility] [id number] 18:46:00 Test Item Value Reference Range Interpretation Comments UA Protein (test code = UA Negative mg/dL Protein) [facility] [id number] 18:46:00 Test Item Value Reference Range Interpretation Comments UA pH (test code = UA pH) 6.5 5.0-8.0 [facility] [id number] 18:46:00 Test Item Value Reference Range Interpretation Comments UA Turbidity (test code = Clear (07/22/14 1:46 UA Turbidity) PM) [facility] [id number] 18:46:00 Test Item Value Reference Range Interpretation Comments UA Spec Grav (test code = UA Spec Grav) 1.010 [facility] [id number] 18:46:00 Test Item Value Reference Range Interpretation Comments UA Color (test code = Light Yellow UA Color) *NA*(07/22/14 1:46 PM) [facility] CenterannCHEM [id number] 18:46:00 Test Item Value Reference Range Interpretation Comments Magnesium Lvl (test code = Magnesium 1.8 1.8-2.4 Lvl) [facility] AnpiugtTFYHDEPZZELS4136-15-30 18:46:00 Test Item Value Reference Range Interpretation Comments AGAP (test code = AGAP) 13.2 10.0-20.0 [facility] HospitalMeittfoZAIGXUBVANRL8187-57-80 18:46:00 Test Item Value Reference Range Interpretation Comments B/C Ratio (test code = B/C Ratio) 18 6-25 [facility] HospitalKbcmkfwXUJTWJLYMBCQ8740-62-36 18:46:00 Test Item Value Reference Range Interpretation Comments A/G Ratio (test code = A/G Ratio) 1.1 0.7-1.6 [facility] HospitalXzchfaoGTTLKCXQTUAO9936-90-41 18:46:00 Test Item Value Reference Range Interpretation Comments Globulin (test code = Globulin) 3.3 2.0-4.0 [facility] Hospital[id number] 18:46:00 Test Item Value Reference Range Interpretation Comments eGFR (test code = eGFR) 99 [facility] HospitalUjnvcnlTDYCHNLOZUWN7307-56-03 18:46:00 Test Item Value Reference Range Interpretation Comments Calcium Lvl (test code = Calcium Lvl) 9.0 8.5-10.5 [facility] Hospital[id number] 18:46:00 Test Item Value Reference Range Interpretation Comments Chloride Lvl (test code = Chloride Lvl) 106 95-109 [facility] Hospital[id number] 18:46:00 Test Item Value Reference Range Interpretation Comments Creatinine Lvl (test code = Creatinine 0.9 0.5-1.4 Lvl) [facility] Hospital[id number] 18:46:00 Test Item Value Reference Range Interpretation Comments Potassium Lvl (test code = Potassium 4.2 3.5-5.1 Lvl) [facility] HospitalFkxxzwxIDORWDIOJRIX0568-62-03 18:46:00 Test Item Value Reference Range Interpretation Comments Sodium Lvl (test code = Sodium Lvl) 139 135-145 [facility] HospitalWfpmtllXLUMZJJNESKS4323-37-97 18:46:00 Test Item Value Reference Range Interpretation Comments CO2 (test code = CO2) 24 24-32 [facility] HospitalQuodhqcEESWJNEGCAIM0249-84-08 18:46:00 Test Item Value Reference Range Interpretation Comments BUN (test code = BUN) 16 7-22 [facility] HospitalVolwvmqLEDQIDCWIFUV4276-70-54 18:46:00 Test Item Value Reference Range Interpretation Comments Glucose Lvl (test code = Glucose Lvl) 141 70-99 [facility] HospitalGjebhteDODGNZDXIUHM6434-53-74 18:46:00 Test Item Value Reference Range Interpretation Comments Albumin Lvl (test code = Albumin Lvl) 3.6 3.5-5.0 [facility] HospitalQwfmggfVWAFKQMLSKLK5821-48-09 18:46:00 Test Item Value Reference Range Interpretation Comments Alk Phos (test code = Alk Phos) 65 39-136 [facility] HospitalGdniebtAJRVKOKWKKGN1971-51-59 18:46:00 Test Item Value Reference Range Interpretation Comments Bili Total (test code = Bili Total) 0.3 0.2-1.3 [facility] HospitalFymeekcEAHDTOUWNLNE8223-88-70 18:46:00 Test Item Value Reference Range Interpretation Comments ALT (test code = ALT) 100 See_Comment [Auto mated message] The system which ge nerated this result transmit elizabeth reference range : <=65. The reference range was not used to interpr et this result as margaret l/abnormal. [facility] HospitalEhwfhslXKCVCYGEZDAK3744-89-33 18:46:00 Test Item Value Reference Range Interpretation Comments AST (test code = AST) 53 See_Comment [Auto mated message] The system which ge nerated this result transmit elizabeth reference range : <=37. The reference range was not used to interpr et this result as margaret l/abnormal. [facility] HospitalKjkgeflCQWBGHXSBIQM6072-37-33 18:46:00 Test Item Value Reference Range Interpretation Comments Total Protein (test code = Total 6.9 6.4-8.4 Protein) [facility] CenterGeytjfdATJXXKXTQY5111-53-17 18:46:00 Test Item Value Reference Range Interpretation Comments Eosinophils (test code = 4.2 See_Comment [A utomated message] The Eosinophils) system which ge nerated this result tra nsmitted reference range : <=4.0. The reference r mitra was not used to int erpret this result as normal/abnormal . [facility] CenterKqskheeUWOSLOSMLQ1716-42-60 18:46:00 Test Item Value Reference Range Interpretation Comments Segs (test code = Segs) 56.4 45.0-75.0 [facility] CenterNfoyzgdJCMDPQEILM6450-61-01 18:46:00 Test Item Value Reference Range Interpretation Comments Monocytes (test code = Monocytes) 10.3 2.0-12.0 [facility] CenterNjraszrKIEVBEKFVQ3273-57-75 18:46:00 Test Item Value Reference Range Interpretation Comments Lymphocytes (test code = Lymphocytes) 28.0 20.0-40.0 [facility] CenterUmkpatsXWFUTFELHV6512-82-15 18:46:00 Test Item Value Reference Range Interpretation Comments Monocytes # (test code 0.5 See_Comment [Aut omated message] The = Monocytes #) system which generated this result tra nsmitted reference range : <=0.8. The reference r mitra was not used to int erpret this result as normal/abnormal . [facility] CenterQlclnsjPRDNNOGDKD5965-05-95 18:46:00 Test Item Value Reference Range Interpretation Comments Basophils (test code = 1.1 See_Comment [Aut omated message] The Basophils) system which ge nerated this result tra nsmitted reference range : <=1.0. The reference r mitra was not used to int erpret this result as normal/abnormal . [facility] CenterXgdlhlwGCFOSIAOMO2898-98-61 18:46:00 Test Item Value Reference Range Interpretation Comments Lymphocytes # (test code = Lymphocytes 1.5 1.0-5.5 #) [facility] CenterQkuluduXZYGMLDFHG9687-90-78 18:46:00 Test Item Value Reference Range Interpretation Comments Segs-Bands # (test code = Segs-Bands #) 2.9 1.5-8.1 [facility] CenterWizxoflBNNODFZHDK6970-92-11 18:46:00 Test Item Value Reference Range Interpretation Comments Eosinophils # (test code 0.2 See_Comment [A utomated message] The = Eosinophils #) system wh h generated this result tra nsmitted reference range : <=0.5. The reference r mitra was not used to int erpret this result as normal/abnormal . [facility] CenterFxcjnepRWDDXJURZZ3429-91-79 18:46:00 Test Item Value Reference Range Interpretation Comments Basophils # (test code 0.1 See_Comment [Aut omated message] The = Basophils #) system which generated this result tra nsmitted reference range : <=0.2. The reference r mitra was not used to int erpret this result as normal/abnormal . [facility] CenterHwqixkdLGKDMXLAYY6671-18-28 18:46:00 Test Item Value Reference Range Interpretation Comments PT (test code = PT) 11.2 s 12.0-14.7 [facility] CenterCxkoevvONDESUNEOE8723-56-08 18:46:00 Test Item Value Reference Range Interpretation Comments INR (test code = INR) 0.82 0.85-1.17 [facility] CenterTukkbqxDSWDUKFAIU6152-48-49 18:46:00 Test Item Value Reference Range Interpretation Comments PTT (test code = PTT) 28.6 s 22.9-35.8 [facility] CenterPymssdrBBUIWZCHZX7701-44-85 18:46:00 Test Item Value Reference Range Interpretation Comments MPV (test code = MPV) 8.1 7.4-10.4 [facility] CenterOtjryndJOOWPOIDKQ6268-21-28 18:46:00 Test Item Value Reference Range Interpretation Comments Platelet (test code = Platelet) 301 133-450 [facility] CenterEkafntnNOEEWPBZPR1017-27-14 18:46:00 Test Item Value Reference Range Interpretation Comments RDW (test code = RDW) 14.5 11.5-14.5 [facility] CenterEujfqumFVHCLMKJHO9502-39-34 18:46:00 Test Item Value Reference Range Interpretation Comments RBC (test code = RBC) 4.84 4.70-6.10 [facility] CenterFtsyjxyLDBXTCQJCA0908-89-97 18:46:00 Test Item Value Reference Range Interpretation Comments Hgb (test code = Hgb) 14.4 14.0-18.0 [facility] CenterEbscqyqDSKATIUXBI2620-14-84 18:46:00 Test Item Value Reference Range Interpretation Comments WBC (test code = WBC) 5.2 3.7-10.4 [facility] CenterLoltxtpFAMQDDYYWJ8152-44-08 18:46:00 Test Item Value Reference Range Interpretation Comments MCH (test code = MCH) 29.8 pg 27.0-31.0 [facility] CenterTabfdekMTFJLYGDYX9600-66-91 18:46:00 Test Item Value Reference Range Interpretation Comments MCV (test code = MCV) 92.0 80.0-94.0 [facility] CenterDudlmcsKKKOOWKBEZ0244-24-45 18:46:00 Test Item Value Reference Range Interpretation Comments Hct (test code = Hct) 44.5 42.0-54.0 [facility] CenterTrgigihNCNHNVNRNL4591-96-62 18:46:00 Test Item Value Reference Range Interpretation Comments MCHC (test code = MCHC) 32.4 32.0-36.0 [facility] CenterVttvtlyUDWFVDOJMN1664-97-02 18:46:00 Test Item Value Reference Range Interpretation Comments [place]-Hep C Ab (test Negative *NA*(07/22/14 code = [place]-Hep C 1:46 PM) Ab) [facility] AND [id number] 18:46:00 Test Item Value Reference Range Interpretation Comments UA Urobilinogen (test code = UA <=1.0 mg/dL 0.1-1.0 Urobilinogen) [facility] AND [id number] 18:46:00 Test Item Value Reference Range Interpretation Comments UA Sq Epi (test code = UA Sq Epi) None Seen [facility] AND [id number] 18:46:00 Test Item Value Reference Range Interpretation Comments UA Leuk Est (test Negative (07/22/14 1:46 code = UA Leuk Est) PM) [facility] AND [id number] 18:46:00 Test Item Value Reference Range Interpretation Comments UA Nitrite (test code Negative (07/22/14 1:46 = UA Nitrite) PM) [facility] AND [id number] 18:46:00 Test Item Value Reference Range Interpretation Comments UA Blood (test code = Negative (07/22/14 1:46 UA Blood) PM) [facility] AND [id number] 18:46:00 Test Item Value Reference Range Interpretation Comments UA Ketones (test code = UA Negative mg/dL Ketones) [facility] AND [id number] 18:46:00 Test Item Value Reference Range Interpretation Comments UA Bili (test code = Negative *NA*(07/22/14 UA Bili) 1:46 PM) [facility] AND [id number] 18:46:00 Test Item Value Reference Range Interpretation Comments UA Bacteria (test code = UA Occasional /HPF Bacteria) [facility] AND [id number] 18:46:00 Test Item Value Reference Range Interpretation Comments UA RBC (test code = no gt See_Comment [Automa elizabeth message] The UA RBC) system which ge nerated this result transmit elizabeth reference range : <=2. The reference range was not used to interpr et this result as margaret l/abnormal. [facility] AND [id number] 18:46:00 Test Item Value Reference Range Interpretation Comments UA WBC (test code = 1 See_Comment [Automa elizabeth message] The UA WBC) system which ge nerated this result transmit elizabeth reference range : <=5. The reference range was not used to interpr et this result as margaret l/abnormal. [facility] AND [id number] 18:46:00 Test Item Value Reference Range Interpretation Comments UA Glucose (test code = UA Glucose) 30 mg/dL [facility] AND [id number] 18:46:00 Test Item Value Reference Range Interpretation Comments UA Protein (test code = UA Negative mg/dL Protein) [facility] AND [id number] 18:46:00 Test Item Value Reference Range Interpretation Comments UA pH (test code = UA pH) 6.5 5.0-8.0 [facility] AND [id number] 18:46:00 Test Item Value Reference Range Interpretation Comments UA Turbidity (test code = Clear (07/22/14 1:46 UA Turbidity) PM) [facility] AND [id number] 18:46:00 Test Item Value Reference Range Interpretation Comments UA Spec Grav (test code = UA Spec Grav) 1.010 [facility] AND [id number] 18:46:00 Test Item Value Reference Range Interpretation Comments UA Color (test code = Light Yellow UA Color) *NA*(07/22/14 1:46 PM) [facility] [id number] 18:46:00 Test Item Value Reference Range Interpretation Comments Magnesium Lvl (test code = Magnesium 1.8 1.8-2.4 Lvl) [facility] HospitalXjvkfbwNYQLYOJRJJAM8791-96-05 18:46:00 Test Item Value Reference Range Interpretation Comments AGAP (test code = AGAP) 13.2 10.0-20.0 [facility] HospitalFuhohazGGNIXBGNDNIK1308-34-55 18:46:00 Test Item Value Reference Range Interpretation Comments B/C Ratio (test code = B/C Ratio) 18 6-25 [facility] HospitalEzovvthKOYAVKDYSYTJ3628-41-56 18:46:00 Test Item Value Reference Range Interpretation Comments A/G Ratio (test code = A/G Ratio) 1.1 0.7-1.6 [facility] HospitalTqmrlcvTTXGYQTJEZFU2319-52-93 18:46:00 Test Item Value Reference Range Interpretation Comments Globulin (test code = Globulin) 3.3 2.0-4.0 [facility] HospitalWfllmgbNMQPBGKKKDMX7727-72-30 18:46:00 Test Item Value Reference Range Interpretation Comments eGFR (test code = eGFR) 99 [facility] HospitalWomjcknJJGHQSIWMJMS0176-93-77 18:46:00 Test Item Value Reference Range Interpretation Comments Calcium Lvl (test code = Calcium Lvl) 9.0 8.5-10.5 [facility] HospitalGxfiuubUTXFVSWGWVLL7955-83-08 18:46:00 Test Item Value Reference Range Interpretation Comments Chloride Lvl (test code = Chloride Lvl) 106 95-109 [facility] HospitalHyinjcoDRBTTHNOIJSK0369-63-52 18:46:00 Test Item Value Reference Range Interpretation Comments Creatinine Lvl (test code = Creatinine 0.9 0.5-1.4 Lvl) [facility] HospitalPaqvbymFOPKPKDLILKT6569-03-71 18:46:00 Test Item Value Reference Range Interpretation Comments Potassium Lvl (test code = Potassium 4.2 3.5-5.1 Lvl) [facility] HospitalYsdemgkXCQTJPPAWCIU1941-20-01 18:46:00 Test Item Value Reference Range Interpretation Comments Sodium Lvl (test code = Sodium Lvl) 139 135-145 [facility] HospitalKezbkiuINYKUTPRRKCT0086-99-26 18:46:00 Test Item Value Reference Range Interpretation Comments CO2 (test code = CO2) 24 24-32 [facility] HospitalChkpsxfWVATTLMVMGQE9952-89-20 18:46:00 Test Item Value Reference Range Interpretation Comments BUN (test code = BUN) 16 7-22 [facility] HospitalRgyxpszHXYNOIPVVIFX3977-71-37 18:46:00 Test Item Value Reference Range Interpretation Comments Glucose Lvl (test code = Glucose Lvl) 141 70-99 [facility] HospitalRmdxneoVWUHEYWLQUBR9914-25-67 18:46:00 Test Item Value Reference Range Interpretation Comments Albumin Lvl (test code = Albumin Lvl) 3.6 3.5-5.0 [facility] HospitalEbmysbzFOHKAHVAGTXH0790-82-25 18:46:00 Test Item Value Reference Range Interpretation Comments Alk Phos (test code = Alk Phos) 65 39-136 [facility] HospitalCgjocomQMHZCQVSXCML6766-10-99 18:46:00 Test Item Value Reference Range Interpretation Comments Bili Total (test code = Bili Total) 0.3 0.2-1.3 [facility] HospitalNruhijuYGLKWUKRAJYH3213-19-33 18:46:00 Test Item Value Reference Range Interpretation Comments ALT (test code = ALT) 100 See_Comment [Auto mated message] The system which ge nerated this result transmit elizabeth reference range : <=65. The reference range was not used to interpr et this result as margaret l/abnormal. [facility] HospitalUksbzrfJOCEDQWNGOIJ2391-59-09 18:46:00 Test Item Value Reference Range Interpretation Comments AST (test code = AST) 53 See_Comment [Auto mated message] The system which ge nerated this result transmit elizabeth reference range : <=37. The reference range was not used to interpr et this result as margaret l/abnormal. [facility] HospitalNeaohepXNVXTLGORAWY5742-95-81 18:46:00 Test Item Value Reference Range Interpretation Comments Total Protein (test code = Total 6.9 6.4-8.4 Protein) [facility] CenterYwsupgiXYVTBPSTRQ0543-38-05 18:46:00 Test Item Value Reference Range Interpretation Comments Eosinophils (test code = 4.2 See_Comment [A utomated message] The Eosinophils) system which ge nerated this result tra nsmitted reference range : <=4.0. The reference r mitra was not used to int erpret this result as normal/abnormal . [facility] CenterAdxblegIRQSREMWKH0225-35-61 18:46:00 Test Item Value Reference Range Interpretation Comments Segs (test code = Segs) 56.4 45.0-75.0 [id number] 18:46:00 Test Item Value Reference Range Interpretation Comments Monocytes (test code = Monocytes) 10.3 2.0-12.0 [facility] CenterKmorzozZMGUJMDRGQ0971-95-85 18:46:00 Test Item Value Reference Range Interpretation Comments Lymphocytes (test code = Lymphocytes) 28.0 20.0-40.0 [facility] CenterSgjyxjrEWVYJTMSCH9718-86-84 18:46:00 Test Item Value Reference Range Interpretation Comments Monocytes # (test code 0.5 See_Comment [Aut omated message] The = Monocytes #) system which generated this result tra nsmitted reference range : <=0.8. The reference r mitra was not used to int erpret this result as normal/abnormal . [facility] CenterAmoljolTSJQVGMQRI3222-13-22 18:46:00 Test Item Value Reference Range Interpretation Comments Basophils (test code = 1.1 See_Comment [Aut omated message] The Basophils) system which ge nerated this result tra nsmitted reference range : <=1.0. The reference r mitra was not used to int erpret this result as normal/abnormal . [facility] CenterVfjmeoxUSYUAPZSFG6764-57-17 18:46:00 Test Item Value Reference Range Interpretation Comments Lymphocytes # (test code = Lymphocytes 1.5 1.0-5.5 #) [facility] CenterGaxavdpYPOUSISTSB3017-76-92 18:46:00 Test Item Value Reference Range Interpretation Comments Segs-Bands # (test code = Segs-Bands #) 2.9 1.5-8.1 [facility] CenterWuefykkDDLXTFNWHC5118-35-71 18:46:00 Test Item Value Reference Range Interpretation Comments Eosinophils # (test code 0.2 See_Comment [A utomated message] The = Eosinophils #) system whic h generated this result tra nsmitted reference range : <=0.5. The reference r mitra was not used to int erpret this result as normal/abnormal . [facility] CenterLpjmbwpPPCHQUANLI5609-55-80 18:46:00 Test Item Value Reference Range Interpretation Comments Basophils # (test code 0.1 See_Comment [Aut omated message] The = Basophils #) system which generated this result tra nsmitted reference range : <=0.2. The reference r mitra was not used to int erpret this result as normal/abnormal . [facility] CenterCjxlardRCVYUMGRDP1234-20-62 18:46:00 Test Item Value Reference Range Interpretation Comments PT (test code = PT) 11.2 s 12.0-14.7 [facility] CenterBuvaalhTHQLCOQZVX0752-34-13 18:46:00 Test Item Value Reference Range Interpretation Comments INR (test code = INR) 0.82 0.85-1.17 [facility] CenterVgshshpCELYOYQFCF2615-33-41 18:46:00 Test Item Value Reference Range Interpretation Comments PTT (test code = PTT) 28.6 s 22.9-35.8 [facility] CenterCegvfteAHGKCBMJXK0445-86-08 18:46:00 Test Item Value Reference Range Interpretation Comments MPV (test code = MPV) 8.1 7.4-10.4 [facility] CenterJtfchewSQZCRINYHS5458-65-80 18:46:00 Test Item Value Reference Range Interpretation Comments Platelet (test code = Platelet) 301 133-450 [facility] CenterSgzvbfmAIMAUVQKZU4693-46-07 18:46:00 Test Item Value Reference Range Interpretation Comments RDW (test code = RDW) 14.5 11.5-14.5 [facility]ivqjfqWKLEXEHNHN5683-70-14 18:46:00 Test Item Value Reference Range Interpretation Comments RBC (test code = RBC) 4.84 4.70-6.10 [facility] CenterOzkzdyoRQRRVLYKCP1128-38-15 18:46:00 Test Item Value Reference Range Interpretation Comments Hgb (test code = Hgb) 14.4 14.0-18.0 [facility] CenterXvluadmKVVVEMGUCB0936-46-18 18:46:00 Test Item Value Reference Range Interpretation Comments WBC (test code = WBC) 5.2 3.7-10.4 [facility] CenterYmynqahQGBXGPYZRV2712-57-29 18:46:00 Test Item Value Reference Range Interpretation Comments MCH (test code = MCH) 29.8 pg 27.0-31.0 [facility] CenterDyffkhvXOFBFCXQPK3114-93-91 18:46:00 Test Item Value Reference Range Interpretation Comments MCV (test code = MCV) 92.0 80.0-94.0 [facility] CenterKmzcdbqYIUYBPEWNS3967-14-51 18:46:00 Test Item Value Reference Range Interpretation Comments Hct (test code = Hct) 44.5 42.0-54.0 [facility] SystemSiftusoHSHRPJHUIN6547-03-47 18:46:00 Test Item Value Reference Range Interpretation Comments MCHC (test code = MCHC) 32.4 32.0-36.0 [facility] CenterUgwjonoKZEHGQHOVV5341-65-59 18:46:00 Test Item Value Reference Range Interpretation Comments [place]-Hep C Ab (test Negative *NA*(07/22/14 code = [place]-Hep C 1:46 PM) Ab) [facility] [id number] 18:46:00 Test Item Value Reference Range Interpretation Comments UA Urobilinogen (test code = UA <=1.0 mg/dL 0.1-1.0 Urobilinogen) [facility] [id number] 18:46:00 Test Item Value Reference Range Interpretation Comments UA Sq Epi (test code = UA Sq Epi) None Seen [facility] [id number] 18:46:00 Test Item Value Reference Range Interpretation Comments UA Leuk Est (test Negative (07/22/14 1:46 code = UA Leuk Est) PM) [facility] AND [id number] 18:46:00 Test Item Value Reference Range Interpretation Comments UA Nitrite (test code Negative (07/22/14 1:46 = UA Nitrite) PM) [facility] AND [id number] 18:46:00 Test Item Value Reference Range Interpretation Comments UA Blood (test code = Negative (07/22/14 1:46 UA Blood) PM) [facility] AND [id number] 18:46:00 Test Item Value Reference Range Interpretation Comments UA Ketones (test code = UA Negative mg/dL Ketones) [facility] AND [id number] 18:46:00 Test Item Value Reference Range Interpretation Comments UA Bili (test code = Negative *NA*(07/22/14 UA Bili) 1:46 PM) [facility] AND [id number] 18:46:00 Test Item Value Reference Range Interpretation Comments UA Bacteria (test code = UA Occasional /HPF Bacteria) [facility] AND [id number] 18:46:00 Test Item Value Reference Range Interpretation Comments UA RBC (test code = no gt See_Comment [Automa elizabeth message] The UA RBC) system which ge nerated this result transmit elizabeth reference range : <=2. The reference range was not used to interpr et this result as margaret l/abnormal. [facility] AND [id number] 18:46:00 Test Item Value Reference Range Interpretation Comments UA WBC (test code = 1 See_Comment [Automa elizabeth message] The UA WBC) system which ge nerated this result transmit elizabeth reference range : <=5. The reference range was not used to interpr et this result as margaret l/abnormal. [facility] AND [id number] 18:46:00 Test Item Value Reference Range Interpretation Comments UA Glucose (test code = UA Glucose) 30 mg/dL [facility] AND [id number] 18:46:00 Test Item Value Reference Range Interpretation Comments UA Protein (test code = UA Negative mg/dL Protein) [facility] AND [id number] 18:46:00 Test Item Value Reference Range Interpretation Comments UA pH (test code = UA pH) 6.5 5.0-8.0 [facility] AND [id number] 18:46:00 Test Item Value Reference Range Interpretation Comments UA Turbidity (test code = Clear (07/22/14 1:46 UA Turbidity) PM) [facility] [id number] 18:46:00 Test Item Value Reference Range Interpretation Comments UA Spec Grav (test code = UA Spec Grav) 1.010 [facility] AND [id number] 18:46:00 Test Item Value Reference Range Interpretation Comments UA Color (test code = Light Yellow UA Color) *NA*(07/22/14 1:46 PM) [facility] [id number] 18:46:00 Test Item Value Reference Range Interpretation Comments Magnesium Lvl (test code = Magnesium 1.8 1.8-2.4 Lvl) [facility] HospitalHwieemeDNQXXVENJHGV5303-72-43 18:46:00 Test Item Value Reference Range Interpretation Comments AGAP (test code = AGAP) 13.2 10.0-20.0 [facility] HospitalQekrtqyKUJOIHALEKIL2044-12-90 18:46:00 Test Item Value Reference Range Interpretation Comments B/C Ratio (test code = B/C Ratio) 18 6-25 [facility] HospitalRtwejnzODOBLEMYWYXY1093-90-46 18:46:00 Test Item Value Reference Range Interpretation Comments A/G Ratio (test code = A/G Ratio) 1.1 0.7-1.6 [facility] HospitalNlqvwmdLVDSXSAYIDKG9024-14-34 18:46:00 Test Item Value Reference Range Interpretation Comments Globulin (test code = Globulin) 3.3 2.0-4.0 [facility] HospitalNyqcayeSEJXGDBNQJUA1255-13-30 18:46:00 Test Item Value Reference Range Interpretation Comments eGFR (test code = eGFR) 99 [facility] HospitalLetnclcEVIDAUEXQMOU7062-80-89 18:46:00 Test Item Value Reference Range Interpretation Comments Calcium Lvl (test code = Calcium Lvl) 9.0 8.5-10.5 [facility]TgfpdtcUVBCWEHDOKRP8244-06-47 18:46:00 Test Item Value Reference Range Interpretation Comments Chloride Lvl (test code = Chloride Lvl) 106 95-109 [facility] HospitalKvnykxnBYBERYVVVVCI0450-73-21 18:46:00 Test Item Value Reference Range Interpretation Comments Creatinine Lvl (test code = Creatinine 0.9 0.5-1.4 Lvl) [facility] HospitalKujcrgrUFYGWWDTIKHG8273-62-60 18:46:00 Test Item Value Reference Range Interpretation Comments Potassium Lvl (test code = Potassium 4.2 3.5-5.1 Lvl) [facility] HospitalCijeylxBYRMOANCHIFG1279-00-73 18:46:00 Test Item Value Reference Range Interpretation Comments Sodium Lvl (test code = Sodium Lvl) 139 135-145 [facility] HospitalGyrbcuiWXPHDFEXWDHE9964-65-83 18:46:00 Test Item Value Reference Range Interpretation Comments CO2 (test code = CO2) 24 24-32 [facility] HospitalDmmztfyZITSQKSXHEQT6306-75-83 18:46:00 Test Item Value Reference Range Interpretation Comments BUN (test code = BUN) 16 7-22 [facility] HospitalUgemmjuRFCUMNTXSZDS3838-45-42 18:46:00 Test Item Value Reference Range Interpretation Comments Glucose Lvl (test code = Glucose Lvl) 141 70-99 [facility] HospitalFymbsiiCWLPDQFEAEXV1869-91-65 18:46:00 Test Item Value Reference Range Interpretation Comments Albumin Lvl (test code = Albumin Lvl) 3.6 3.5-5.0 [facility] HospitalMvwjcryTLNDDSDIWKPZ5914-03-74 18:46:00 Test Item Value Reference Range Interpretation Comments Alk Phos (test code = Alk Phos) 65 39-136 [facility] HospitalQzvvmvgFGPEWSVFLNHZ2094-19-10 18:46:00 Test Item Value Reference Range Interpretation Comments Bili Total (test code = Bili Total) 0.3 0.2-1.3 [facility] HospitalNfchzsyBKFRUBCHQKXV8571-77-52 18:46:00 Test Item Value Reference Range Interpretation Comments ALT (test code = ALT) 100 See_Comment [Auto mated message] The system which ge nerated this result transmit elizabeth reference range : <=65. The reference range was not used to interpr et this result as margaret l/abnormal. [facility] HospitalNwqijavEYKYSMMUBSCF8006-63-41 18:46:00 Test Item Value Reference Range Interpretation Comments AST (test code = AST) 53 See_Comment [Auto mated message] The system which ge nerated this result transmit elizabeth reference range : <=37. The reference range was not used to interpr et this result as margaret l/abnormal. [facility] HospitalGsyiytdDHZTHUQXVQPH1457-62-25 18:46:00 Test Item Value Reference Range Interpretation Comments Total Protein (test code = Total 6.9 6.4-8.4 Protein) [facility] CenterEozzaheNGAPVYEAFR2166-80-95 18:46:00 Test Item Value Reference Range Interpretation Comments Eosinophils (test code = 4.2 See_Comment [A utomated message] The Eosinophils) system which ge nerated this result tra nsmitted reference range : <=4.0. The reference r mitra was not used to int erpret this result as normal/abnormal . [facility] CenterNnqaiubFVKHMSABGP6023-23-19 18:46:00 Test Item Value Reference Range Interpretation Comments Segs (test code = Segs) 56.4 45.0-75.0 [facility] CenterZiwtlrdCTGPDOWQGC0422-49-12 18:46:00 Test Item Value Reference Range Interpretation Comments Monocytes (test code = Monocytes) 10.3 2.0-12.0 [facility] CenterSswhirxKXPMKDDBOG9752-11-56 18:46:00 Test Item Value Reference Range Interpretation Comments Lymphocytes (test code = Lymphocytes) 28.0 20.0-40.0 [facility] CenterIdudfyyZCXMUDKJJV5869-24-55 18:46:00 Test Item Value Reference Range Interpretation Comments Monocytes # (test code 0.5 See_Comment [Aut omated message] The = Monocytes #) system which generated this result tra nsmitted reference range : <=0.8. The reference r mitra was not used to int erpret this result as normal/abnormal . [facility] CenterKbvplclJTXCGVYUSI9863-97-83 18:46:00 Test Item Value Reference Range Interpretation Comments Basophils (test code = 1.1 See_Comment [Aut omated message] The Basophils) system which ge nerated this result tra nsmitted reference range : <=1.0. The reference r mitra was not used to int erpret this result as normal/abnormal . [facility] CenterSvlhopdLKSWNYVHYQ7053-32-64 18:46:00 Test Item Value Reference Range Interpretation Comments Lymphocytes # (test code = Lymphocytes 1.5 1.0-5.5 #) [facility] CenterDrcdaxcQTXBIJFGYT2291-69-12 18:46:00 Test Item Value Reference Range Interpretation Comments Segs-Bands # (test code = Segs-Bands #) 2.9 1.5-8.1 [facility] CenterClbmxxzUJORUZRMIR9172-41-74 18:46:00 Test Item Value Reference Range Interpretation Comments Eosinophils # (test code 0.2 See_Comment [A utomated message] The = Eosinophils #) system whic h generated this result tra nsmitted reference range : <=0.5. The reference r mitra was not used to int erpret this result as normal/abnormal . [facility] CenterEyglkjeRYEPRCIRVL4029-22-11 18:46:00 Test Item Value Reference Range Interpretation Comments Basophils # (test code 0.1 See_Comment [Aut omated message] The = Basophils #) system which generated this result tra nsmitted reference range : <=0.2. The reference r mitra was not used to int erpret this result as normal/abnormal . [facility] CenterSxsepapWBPMRMMJZW5446-44-57 18:46:00 Test Item Value Reference Range Interpretation Comments PT (test code = PT) 11.2 s 12.0-14.7 [facility] CenterCnllsnxYXEDUMFIIL0818-65-52 18:46:00 Test Item Value Reference Range Interpretation Comments INR (test code = INR) 0.82 0.85-1.17 [facility] CenterFqofssaTQQKTRBWCX0569-89-49 18:46:00 Test Item Value Reference Range Interpretation Comments PTT (test code = PTT) 28.6 s 22.9-35.8 [facility] CenterLjckeoeMFVFIJIHYQ7830-74-96 18:46:00 Test Item Value Reference Range Interpretation Comments MPV (test code = MPV) 8.1 7.4-10.4 [facility] CenterNpnnoliNKBYPNNVWO1069-74-73 18:46:00 Test Item Value Reference Range Interpretation Comments Platelet (test code = Platelet) 301 133-450 [facility] CenterIebnotzQLCCCQVFUF6153-35-27 18:46:00 Test Item Value Reference Range Interpretation Comments RDW (test code = RDW) 14.5 11.5-14.5 [facility] CenterJftardcBRBLQSBBRX2321-05-57 18:46:00 Test Item Value Reference Range Interpretation Comments RBC (test code = RBC) 4.84 4.70-6.10 [facility] CenterDzdyaesZKCYYLJCGD1877-32-95 18:46:00 Test Item Value Reference Range Interpretation Comments Hgb (test code = Hgb) 14.4 14.0-18.0 [facility] CenterMttqujnOTKCOXUCHA6183-05-05 18:46:00 Test Item Value Reference Range Interpretation Comments WBC (test code = WBC) 5.2 3.7-10.4 [facility] BfudubkJGZAFZEBIV9835-23-88 18:46:00 Test Item Value Reference Range Interpretation Comments MCH (test code = MCH) 29.8 pg 27.0-31.0 [facility]YvnlmjbFVLWPSRIAL1706-32-73 18:46:00 Test Item Value Reference Range Interpretation Comments MCV (test code = MCV) 92.0 80.0-94.0 [facility] CenterDvsuulpWHVOEVFQQL9759-04-06 18:46:00 Test Item Value Reference Range Interpretation Comments Hct (test code = Hct) 44.5 42.0-54.0 [facility] SystemGthkirxTCWPETJZIS8587-52-32 18:46:00 Test Item Value Reference Range Interpretation Comments MCHC (test code = MCHC) 32.4 32.0-36.0 [facility] CenterMkficnhLNAMOAJTEW8967-25-13 18:46:00 Test Item Value Reference Range Interpretation Comments [place]-Hep C Ab (test Negative *NA*(07/22/14 code = [place]-Hep C 1:46 PM) Ab) [facility] AND [id number] 18:46:00 Test Item Value Reference Range Interpretation Comments UA Urobilinogen (test code = UA <=1.0 mg/dL 0.1-1.0 Urobilinogen) [facility] AND [id number] 18:46:00 Test Item Value Reference Range Interpretation Comments UA Sq Epi (test code = UA Sq Epi) None Seen [facility] AND [id number] 18:46:00 Test Item Value Reference Range Interpretation Comments UA Leuk Est (test Negative (07/22/14 1:46 code = UA Leuk Est) PM) [facility] [id number] 18:46:00 Test Item Value Reference Range Interpretation Comments UA Nitrite (test code Negative (07/22/14 1:46 = UA Nitrite) PM) [facility] [id number] 18:46:00 Test Item Value Reference Range Interpretation Comments UA Blood (test code = Negative (07/22/14 1:46 UA Blood) PM) [facility] [id number] 18:46:00 Test Item Value Reference Range Interpretation Comments UA Ketones (test code = UA Negative mg/dL Ketones) [facility] AND [id number] 18:46:00 Test Item Value Reference Range Interpretation Comments UA Bili (test code = Negative *NA*(07/22/14 UA Bili) 1:46 PM) [facility] AND [id number] 18:46:00 Test Item Value Reference Range Interpretation Comments UA Bacteria (test code = UA Occasional /HPF Bacteria) [facility] AND [id number] 18:46:00 Test Item Value Reference Range Interpretation Comments UA RBC (test code = no gt See_Comment [Automa elizabeth message] The UA RBC) system which ge nerated this result transmit elizabeth reference range : <=2. The reference range was not used to interpr et this result as margaret l/abnormal. [facility] AND [id number] 18:46:00 Test Item Value Reference Range Interpretation Comments UA WBC (test code = 1 See_Comment [Automa elizabeth message] The UA WBC) system which ge nerated this result transmit elizabeth reference range : <=5. The reference range was not used to interpr et this result as margaret l/abnormal. [facility] AND [id number] 18:46:00 Test Item Value Reference Range Interpretation Comments UA Glucose (test code = UA Glucose) 30 mg/dL [facility] AND [id number] 18:46:00 Test Item Value Reference Range Interpretation Comments UA Protein (test code = UA Negative mg/dL Protein) [facility] AND [id number] 18:46:00 Test Item Value Reference Range Interpretation Comments UA pH (test code = UA pH) 6.5 5.0-8.0 [facility] AND [id number] 18:46:00 Test Item Value Reference Range Interpretation Comments UA Turbidity (test code = Clear (07/22/14 1:46 UA Turbidity) PM) [facility] AND [id number] 18:46:00 Test Item Value Reference Range Interpretation Comments UA Spec Grav (test code = UA Spec Grav) 1.010 [facility] AND [id number] 18:46:00 Test Item Value Reference Range Interpretation Comments UA Color (test code = Light Yellow UA Color) *NA*(07/22/14 1:46 PM) [facility]2015-06-09 18:46:00 Test Item Value Reference Range Interpretation Comments Magnesium Lvl (test code = Magnesium 1.8 1.8-2.4 Lvl) [facility] HospitalTgigutiSASSCIRXMWNK1810-03-63 18:46:00 Test Item Value Reference Range Interpretation Comments AGAP (test code = AGAP) 13.2 10.0-20.0 [facility] HospitalQyvtqhmKMPIPSSRDKEC4757-06-79 18:46:00 Test Item Value Reference Range Interpretation Comments B/C Ratio (test code = B/C Ratio) 18 6-25 [facility] HospitalNvvpjdlBDBAXWXWCATD2038-48-25 18:46:00 Test Item Value Reference Range Interpretation Comments A/G Ratio (test code = A/G Ratio) 1.1 0.7-1.6 [facility] HospitalFdsizbbAIBSELEUZDEX2157-78-37 18:46:00 Test Item Value Reference Range Interpretation Comments Globulin (test code = Globulin) 3.3 2.0-4.0 [facility] HospitalHoakgfhNVGEXTWGYTMC9131-13-12 18:46:00 Test Item Value Reference Range Interpretation Comments eGFR (test code = eGFR) 99 [facility] HospitalYqzzffoAOVZNYEGASUN1925-81-93 18:46:00 Test Item Value Reference Range Interpretation Comments Calcium Lvl (test code = Calcium Lvl) 9.0 8.5-10.5 [facility] HospitalGxlgfqpGRTTSKDTYHUV7462-02-18 18:46:00 Test Item Value Reference Range Interpretation Comments Chloride Lvl (test code = Chloride Lvl) 106 95-109 [facility] HospitalOqrtogiEYNBVKHNDVTN1125-00-77 18:46:00 Test Item Value Reference Range Interpretation Comments Creatinine Lvl (test code = Creatinine 0.9 0.5-1.4 Lvl) [facility] HospitalJzkfreqGUIUGDDSWYBF9893-42-22 18:46:00 Test Item Value Reference Range Interpretation Comments Potassium Lvl (test code = Potassium 4.2 3.5-5.1 Lvl) [facility] HospitalMemlxtzGHSDJQMHCYAE9447-00-76 18:46:00 Test Item Value Reference Range Interpretation Comments Sodium Lvl (test code = Sodium Lvl) 139 135-145 [facility] HospitalTulwmgzSIQCOMITARNE9551-66-93 18:46:00 Test Item Value Reference Range Interpretation Comments CO2 (test code = CO2) 24 24-32 [facility] HospitalJrgqoydYMWWOKQMDXOE3186-42-81 18:46:00 Test Item Value Reference Range Interpretation Comments BUN (test code = BUN) 16 7-22 [facility] HospitalGmyaokjHYQHPLLEIGOT8369-27-94 18:46:00 Test Item Value Reference Range Interpretation Comments Glucose Lvl (test code = Glucose Lvl) 141 70-99 [facility] HospitalNawyyypTRULOWBLYEDJ1353-69-26 18:46:00 Test Item Value Reference Range Interpretation Comments Albumin Lvl (test code = Albumin Lvl) 3.6 3.5-5.0 [facility] HospitalLfdjuhfQRDNBTSEKGZZ6005-29-32 18:46:00 Test Item Value Reference Range Interpretation Comments Alk Phos (test code = Alk Phos) 65 39-136 [facility] HospitalDrdizswXGUMRQADLEXH1076-71-48 18:46:00 Test Item Value Reference Range Interpretation Comments Bili Total (test code = Bili Total) 0.3 0.2-1.3 [facility] HospitalKwrhuigLBUBYZSHXAFW0092-73-57 18:46:00 Test Item Value Reference Range Interpretation Comments ALT (test code = ALT) 100 See_Comment [Auto mated message] The system which ge nerated this result transmit elizabeth reference range : <=65. The reference range was not used to interpr et this result as margaret l/abnormal. [facility] HospitalPmeavdkNZHGRSXWDHKJ3350-38-50 18:46:00 Test Item Value Reference Range Interpretation Comments AST (test code = AST) 53 See_Comment [Auto mated message] The system which ge nerated this result transmit elizabeth reference range : <=37. The reference range was not used to interpr et this result as margaret l/abnormal. [facility] HospitalHdyhsbtLJZAAVCLWDDM2022-02-90 18:46:00 Test Item Value Reference Range Interpretation Comments Total Protein (test code = Total 6.9 6.4-8.4 Protein) [facility] CenterIbfbyupXZPZQKDQXU0490-60-37 18:46:00 Test Item Value Reference Range Interpretation Comments Eosinophils (test code = 4.2 See_Comment [A utomated message] The Eosinophils) system which ge nerated this result tra nsmitted reference range : <=4.0. The reference r mitra was not used to int erpret this result as normal/abnormal . [facility] CenterRtwmvzfZOCLBXRDUX3080-71-61 18:46:00 Test Item Value Reference Range Interpretation Comments Segs (test code = Segs) 56.4 45.0-75.0 [facility] CenterScfwtafNUFWPOCBMD4402-81-75 18:46:00 Test Item Value Reference Range Interpretation Comments Monocytes (test code = Monocytes) 10.3 2.0-12.0 [facility] CenterRpsjkpeOMSNQMACKS5618-20-78 18:46:00 Test Item Value Reference Range Interpretation Comments Lymphocytes (test code = Lymphocytes) 28.0 20.0-40.0 [facility] CenterVzdlqzxBIKJKXRALO8280-71-11 18:46:00 Test Item Value Reference Range Interpretation Comments Monocytes # (test code 0.5 See_Comment [Aut omated message] The = Monocytes #) system which generated this result tra nsmitted reference range : <=0.8. The reference r mitra was not used to int erpret this result as normal/abnormal . [facility] CenterArtlullYBFZFIZNCF2523-90-13 18:46:00 Test Item Value Reference Range Interpretation Comments Basophils (test code = 1.1 See_Comment [Aut omated message] The Basophils) system which ge nerated this result tra nsmitted reference range : <=1.0. The reference r mitra was not used to int erpret this result as normal/abnormal . [facility] CenterJlbgksbDRNNKVYJFC2426-39-27 18:46:00 Test Item Value Reference Range Interpretation Comments Lymphocytes # (test code = Lymphocytes 1.5 1.0-5.5 #) [facility] CenterJuqtwruKUZAWVBENS3731-93-41 18:46:00 Test Item Value Reference Range Interpretation Comments Segs-Bands # (test code = Segs-Bands #) 2.9 1.5-8.1 [facility] CenterUampszfQOPAOZKYYF9106-51-63 18:46:00 Test Item Value Reference Range Interpretation Comments Eosinophils # (test code 0.2 See_Comment [A utomated message] The = Eosinophils #) system [facility] generated this result tra nsmitted reference range : <=0.5. The reference r mitra was not used to int erpret this result as normal/abnormal . [facility] CenterEfhdhmiGPVKSLZDZQ6473-81-35 18:46:00 Test Item Value Reference Range Interpretation Comments Basophils # (test code 0.1 See_Comment [Aut omated message] The = Basophils #) system which generated this result tra nsmitted reference range : <=0.2. The reference r mitra was not used to int erpret this result as normal/abnormal . [facility] CenterYsjukvbXOSGDIDBZU7195-85-38 18:46:00 Test Item Value Reference Range Interpretation Comments PT (test code = PT) 11.2 s 12.0-14.7 [facility] CenterHixvijeQYWFLGVUZQ9597-90-49 18:46:00 Test Item Value Reference Range Interpretation Comments INR (test code = INR) 0.82 0.85-1.17 [facility] CenterSrryopyNLSUKQNKNA9268-77-07 18:46:00 Test Item Value Reference Range Interpretation Comments PTT (test code = PTT) 28.6 s 22.9-35.8 [facility] CenterOscjugxOTWRBWGALN8863-72-56 18:46:00 Test Item Value Reference Range Interpretation Comments MPV (test code = MPV) 8.1 7.4-10.4 [facility] CenterMknhukyAWCQAJKZUA1419-03-12 18:46:00 Test Item Value Reference Range Interpretation Comments Platelet (test code = Platelet) 301 133-450 [facility] CenterIywyemiXJOBACZSBE3493-39-66 18:46:00 Test Item Value Reference Range Interpretation Comments RDW (test code = RDW) 14.5 11.5-14.5 [facility] CenterAwmcrrnYGIJFMEYPD5233-43-54 18:46:00 Test Item Value Reference Range Interpretation Comments RBC (test code = RBC) 4.84 4.70-6.10 [facility] CenterUgxatlnUMSRAUFKDC8554-30-45 18:46:00 Test Item Value Reference Range Interpretation Comments Hgb (test code = Hgb) 14.4 14.0-18.0 [facility] CenterGhxxfvoIRCGIBZUXZ0918-99-19 18:46:00 Test Item Value Reference Range Interpretation Comments WBC (test code = WBC) 5.2 3.7-10.4 [facility] CenterQqwwzfzWFLHQDCBTO3337-00-66 18:46:00 Test Item Value Reference Range Interpretation Comments MCH (test code = MCH) 29.8 pg 27.0-31.0 [facility] CenterFkzjancLUHBEDFPIG3255-58-42 18:46:00 Test Item Value Reference Range Interpretation Comments MCV (test code = MCV) 92.0 80.0-94.0 [facility] CenterClvrbtwGYZMRBDLTH8023-45-64 18:46:00 Test Item Value Reference Range Interpretation Comments Hct (test code = Hct) 44.5 42.0-54.0 [facility]TfzcyqzLBUVNBDHTD9362-62-76 18:46:00 Test Item Value Reference Range Interpretation Comments MCHC (test code = MCHC) 32.4 32.0-36.0 [facility]GxfsphbVGLDPDOSMB4868-08-41 18:46:00 Test Item Value Reference Range Interpretation Comments [place]-Hep C Ab (test Negative *NA*(07/22/14 code = [place]-Hep C 1:46 PM) Ab) [facility] AND [id number] 18:46:00 Test Item Value Reference Range Interpretation Comments UA Urobilinogen (test code = UA <=1.0 mg/dL 0.1-1.0 Urobilinogen) [facility] AND [id number] 18:46:00 Test Item Value Reference Range Interpretation Comments UA Sq Epi (test code = UA Sq Epi) None Seen [facility] AND [id number] 18:46:00 Test Item Value Reference Range Interpretation Comments UA Leuk Est (test Negative (07/22/14 1:46 code = UA Leuk Est) PM) [facility] AND [id number] 18:46:00 Test Item Value Reference Range Interpretation Comments UA Nitrite (test code Negative (07/22/14 1:46 = UA Nitrite) PM) [facility] AND [id number] 18:46:00 Test Item Value Reference Range Interpretation Comments UA Blood (test code = Negative (07/22/14 1:46 UA Blood) PM) [facility] AND [id number] 18:46:00 Test Item Value Reference Range Interpretation Comments UA Ketones (test code = UA Negative mg/dL Ketones) [facility] AND [id number] 18:46:00 Test Item Value Reference Range Interpretation Comments UA Bili (test code = Negative *NA*(07/22/14 UA Bili) 1:46 PM) [facility] AND [id number] 18:46:00 Test Item Value Reference Range Interpretation Comments UA Bacteria (test code = UA Occasional /HPF Bacteria) [facility] AND [id number] 18:46:00 Test Item Value Reference Range Interpretation Comments UA RBC (test code = no gt See_Comment [Automa elizabeth message] The UA RBC) system which ge nerated this result transmit elizabeth reference range : <=2. The reference range was not used to interpr et this result as margaret l/abnormal. [facility] AND [id number] 18:46:00 Test Item Value Reference Range Interpretation Comments UA WBC (test code = 1 See_Comment [Automa elizabeth message] The UA WBC) system which ge nerated this result transmit elizabeth reference range : <=5. The reference range was not used to interpr et this result as margaret l/abnormal. [facility]ann[facility] [id number] 18:46:00 Test Item Value Reference Range Interpretation Comments UA Glucose (test code = UA Glucose) 30 mg/dL [facility] AND [id number] 18:46:00 Test Item Value Reference Range Interpretation Comments UA Protein (test code = UA Negative mg/dL Protein) [facility] AND [id number] 18:46:00 Test Item Value Reference Range Interpretation Comments UA pH (test code = UA pH) 6.5 5.0-8.0 [facility] AND [id number] 18:46:00 Test Item Value Reference Range Interpretation Comments UA Turbidity (test code = Clear (07/22/14 1:46 UA Turbidity) PM) [facility] AND [id number] 18:46:00 Test Item Value Reference Range Interpretation Comments UA Spec Grav (test code = UA Spec Grav) 1.010 [facility] AND [id number] 18:46:00 Test Item Value Reference Range Interpretation Comments UA Color (test code = Light Yellow UA Color) *NA*(07/22/14 1:46 PM) [facility]annCHEM [id number] 18:46:00 Test Item Value Reference Range Interpretation Comments Magnesium Lvl (test code = Magnesium 1.8 1.8-2.4 Lvl) [facility] RegionalFjaqwgvDXWIGVHYVJNG4030-96-10 18:46:00 Test Item Value Reference Range Interpretation Comments AGAP (test code = AGAP) 13.2 10.0-20.0 [facility]ilZZYRGIEDHYAJ5965-34-36 18:46:00 Test Item Value Reference Range Interpretation Comments B/C Ratio (test code = B/C Ratio) 18 6-25 [facility] HospitalByqgbhpWVUDEDEFQDER4838-76-40 18:46:00 Test Item Value Reference Range Interpretation Comments A/G Ratio (test code = A/G Ratio) 1.1 0.7-1.6 [facility] HospitalTwtzyckIKTNVFIOKKQK1464-80-13 18:46:00 Test Item Value Reference Range Interpretation Comments Globulin (test code = Globulin) 3.3 2.0-4.0 [facility] HospitalAlzfktqVJRVSLPIQMVN0473-98-15 18:46:00 Test Item Value Reference Range Interpretation Comments eGFR (test code = eGFR) 99 [facility] HospitalEzdjobfBMWSTHXYZPDJ6982-92-56 18:46:00 Test Item Value Reference Range Interpretation Comments Calcium Lvl (test code = Calcium Lvl) 9.0 8.5-10.5 [facility] HospitalHponkboMXLQDEHXBSEJ3147-93-11 18:46:00 Test Item Value Reference Range Interpretation Comments Chloride Lvl (test code = Chloride Lvl) 106 95-109 [facility] HospitalKexfarkOUTOXHTHYQAM9568-37-30 18:46:00 Test Item Value Reference Range Interpretation Comments Creatinine Lvl (test code = Creatinine 0.9 0.5-1.4 Lvl) [facility] HospitalNscgfwlQDNLOORFQFZH5201-74-21 18:46:00 Test Item Value Reference Range Interpretation Comments Potassium Lvl (test code = Potassium 4.2 3.5-5.1 Lvl) [facility] HospitalWpslgneBQDEALZIMKUS0709-78-39 18:46:00 Test Item Value Reference Range Interpretation Comments Sodium Lvl (test code = Sodium Lvl) 139 135-145 [facility] HospitalFecjstnIOLOWTBTPPJZ5787-86-47 18:46:00 Test Item Value Reference Range Interpretation Comments CO2 (test code = CO2) 24 24-32 [facility] HospitalDyrelqjGANDYRCHDBXN5478-55-62 18:46:00 Test Item Value Reference Range Interpretation Comments BUN (test code = BUN) 16 7-22 [facility] HospitalVzxcgekSWKIDHGQQZAZ7839-21-28 18:46:00 Test Item Value Reference Range Interpretation Comments Glucose Lvl (test code = Glucose Lvl) 141 70-99 [facility] HospitalMvolhtkCEAXMXXEWGZL4070-64-40 18:46:00 Test Item Value Reference Range Interpretation Comments Albumin Lvl (test code = Albumin Lvl) 3.6 3.5-5.0 [facility] HospitalOszmlxaYTGXFJXWXRFG6993-72-40 18:46:00 Test Item Value Reference Range Interpretation Comments Alk Phos (test code = Alk Phos) 65 39-136 [facility] HospitalRpvffkeAOVGZTZFZODZ3097-71-76 18:46:00 Test Item Value Reference Range Interpretation Comments Bili Total (test code = Bili Total) 0.3 0.2-1.3 [facility] HospitalRehkrthYIIVADUZWNNR7524-17-49 18:46:00 Test Item Value Reference Range Interpretation Comments ALT (test code = ALT) 100 See_Comment [Auto mated message] The system which ge nerated this result transmit elizabeth reference range : <=65. The reference range was not used to interpr et this result as margaret l/abnormal. [facility] HospitalYkcglnhYGUTLIENXAOG5302-11-95 18:46:00 Test Item Value Reference Range Interpretation Comments AST (test code = AST) 53 See_Comment [Auto mated message] The system which ge nerated this result transmit elizabeth reference range : <=37. The reference range was not used to interpr et this result as margaret l/abnormal. [facility] HospitalCfsxndwRCCNBIXGKXZS4535-52-56 18:46:00 Test Item Value Reference Range Interpretation Comments Total Protein (test code = Total 6.9 6.4-8.4 Protein) [facility] CenterNbcgkaaWSUBWSOFZI1320-90-21 18:46:00 Test Item Value Reference Range Interpretation Comments Eosinophils (test code = 4.2 See_Comment [A utomated message] The Eosinophils) system which ge nerated this result tra nsmitted reference range : <=4.0. The reference r mitra was not used to int erpret this result as normal/abnormal . [facility] CenterXfetamgSFWMKSIITA2422-33-90 18:46:00 Test Item Value Reference Range Interpretation Comments Segs (test code = Segs) 56.4 45.0-75.0 [facility] CenterQebrjrbDITKCXLHYW7741-50-04 18:46:00 Test Item Value Reference Range Interpretation Comments Monocytes (test code = Monocytes) 10.3 2.0-12.0 [facility] CenterYmlszwuBJFOPGSYNU8592-11-39 18:46:00 Test Item Value Reference Range Interpretation Comments Lymphocytes (test code = Lymphocytes) 28.0 20.0-40.0 [facility] CenterNqmdargXURURJQBVO3767-81-23 18:46:00 Test Item Value Reference Range Interpretation Comments Monocytes # (test code 0.5 See_Comment [Aut omated message] The = Monocytes #) system which generated this result tra nsmitted reference range : <=0.8. The reference r mitra was not used to int erpret this result as normal/abnormal . [facility] CenterFnejxfpWRXTQBJCDC5125-28-95 18:46:00 Test Item Value Reference Range Interpretation Comments Basophils (test code = 1.1 See_Comment [Aut omated message] The Basophils) system which ge nerated this result tra nsmitted reference range : <=1.0. The reference r mitra was not used to int erpret this result as normal/abnormal . [facility] CenterYkejbsuNLTXBBDQVC1193-29-14 18:46:00 Test Item Value Reference Range Interpretation Comments Lymphocytes # (test code = Lymphocytes 1.5 1.0-5.5 #) [facility] CenterUleouxbGJBXAVQQGT0544-77-09 18:46:00 Test Item Value Reference Range Interpretation Comments Segs-Bands # (test code = Segs-Bands #) 2.9 1.5-8.1 [facility] CenterBgctuajKAWXSYHVJT8116-12-66 18:46:00 Test Item Value Reference Range Interpretation Comments Eosinophils # (test code 0.2 See_Comment [A utomated message] The = Eosinophils #) system whic h generated this result tra nsmitted reference range : <=0.5. The reference r mitra was not used to int erpret this result as normal/abnormal . [facility] CenterApkxrxtMSLAVBGBFS4050-77-24 18:46:00 Test Item Value Reference Range Interpretation Comments Basophils # (test code 0.1 See_Comment [Aut omated message] The = Basophils #) system which generated this result tra nsmitted reference range : <=0.2. The reference r mitra was not used to int erpret this result as normal/abnormal . [facility] CenterAuflpxmMLORCDGGEI7430-89-02 18:46:00 Test Item Value Reference Range Interpretation Comments PT (test code = PT) 11.2 s 12.0-14.7 [facility] CenterSjppltzKMVMMUCXPH3695-59-13 18:46:00 Test Item Value Reference Range Interpretation Comments INR (test code = INR) 0.82 0.85-1.17 [facility] CenterQdqgprcJTRUNSMYPR1867-98-89 18:46:00 Test Item Value Reference Range Interpretation Comments PTT (test code = PTT) 28.6 s 22.9-35.8 [facility]qcyjkBAGPETHCEY8453-97-38 18:46:00 Test Item Value Reference Range Interpretation Comments MPV (test code = MPV) 8.1 7.4-10.4 [facility] SystemJbmkazrFCHFELJDLY4354-27-05 18:46:00 Test Item Value Reference Range Interpretation Comments Platelet (test code = Platelet) 301 133-450 [facility] SystemLipkoglAQUTYYVOCH1427-49-74 18:46:00 Test Item Value Reference Range Interpretation Comments RDW (test code = RDW) 14.5 11.5-14.5 [facility] SystemQligqdbJMCRHMJEWZ4464-02-98 18:46:00 Test Item Value Reference Range Interpretation Comments RBC (test code = RBC) 4.84 4.70-6.10 [facility] SystemFlshygiMQMMZQKRVU5925-81-08 18:46:00 Test Item Value Reference Range Interpretation Comments Hgb (test code = Hgb) 14.4 14.0-18.0 [facility] SystemThxnsdhALPSOILXOM8565-84-59 18:46:00 Test Item Value Reference Range Interpretation Comments WBC (test code = WBC) 5.2 3.7-10.4 [facility] SystemKjupkboHXVWZEAUHT6664-85-87 18:46:00 Test Item Value Reference Range Interpretation Comments MCH (test code = MCH) 29.8 pg 27.0-31.0 [facility] SystemBlzvefcEBTKGSBYML6852-18-07 18:46:00 Test Item Value Reference Range Interpretation Comments MCV (test code = MCV) 92.0 80.0-94.0 [facility] CenterJfzkiyoECBXPYDIQU3019-24-53 18:46:00 Test Item Value Reference Range Interpretation Comments Hct (test code = Hct) 44.5 42.0-54.0 [facility] SystemKaqsdynOUKFPBETIL7850-85-54 18:46:00 Test Item Value Reference Range Interpretation Comments MCHC (test code = MCHC) 32.4 32.0-36.0 [facility] CenterKvzpxuhLXOKGTCNYM1956-16-83 18:46:00 Test Item Value Reference Range Interpretation Comments [place]-Hep C Ab (test Negative *NA*(07/22/14 code = [place]-Hep C 1:46 PM) Ab) [facility] [id number] 18:46:00 Test Item Value Reference Range Interpretation Comments UA Urobilinogen (test code = UA <=1.0 mg/dL 0.1-1.0 Urobilinogen) [facility] AND [id number] 18:46:00 Test Item Value Reference Range Interpretation Comments UA Sq Epi (test code = UA Sq Epi) None Seen [facility] AND [id number] 18:46:00 Test Item Value Reference Range Interpretation Comments UA Leuk Est (test Negative (07/22/14 1:46 code = UA Leuk Est) PM) [facility] AND [id number] 18:46:00 Test Item Value Reference Range Interpretation Comments UA Nitrite (test code Negative (07/22/14 1:46 = UA Nitrite) PM) [facility] AND [id number] 18:46:00 Test Item Value Reference Range Interpretation Comments UA Blood (test code = Negative (07/22/14 1:46 UA Blood) PM) [facility] AND [id number] 18:46:00 Test Item Value Reference Range Interpretation Comments UA Ketones (test code = UA Negative mg/dL Ketones) [facility] AND [id number] 18:46:00 Test Item Value Reference Range Interpretation Comments UA Bili (test code = Negative *NA*(07/22/14 UA Bili) 1:46 PM) [facility] AND [id number] 18:46:00 Test Item Value Reference Range Interpretation Comments UA Bacteria (test code = UA Occasional /HPF Bacteria) [facility] AND [id number] 18:46:00 Test Item Value Reference Range Interpretation Comments UA RBC (test code = no gt See_Comment [Automa elizabeth message] The UA RBC) system which ge nerated this result transmit elizabeth reference range : <=2. The reference range was not used to interpr et this result as margaret l/abnormal. [facility] AND [id number] 18:46:00 Test Item Value Reference Range Interpretation Comments UA WBC (test code = 1 See_Comment [Automa elizabeth message] The UA WBC) system which ge nerated this result transmit elizabeth reference range : <=5. The reference range was not used to interpr et this result as margaret l/abnormal. [facility] AND [id number] 18:46:00 Test Item Value Reference Range Interpretation Comments UA Glucose (test code = UA Glucose) 30 mg/dL [facility] AND [id number] 18:46:00 Test Item Value Reference Range Interpretation Comments UA Protein (test code = UA Negative mg/dL Protein) [facility] AND [id number] 18:46:00 Test Item Value Reference Range Interpretation Comments UA pH (test code = UA pH) 6.5 5.0-8.0 [facility] AND [id number] 18:46:00 Test Item Value Reference Range Interpretation Comments UA Turbidity (test code = Clear (07/22/14 1:46 UA Turbidity) PM) [facility] AND [id number] 18:46:00 Test Item Value Reference Range Interpretation Comments UA Spec Grav (test code = UA Spec Grav) 1.010 [facility] AND [id number] 18:46:00 Test Item Value Reference Range Interpretation Comments UA Color (test code = Light Yellow UA Color) *NA*(07/22/14 1:46 PM) [facility] [id number] 18:46:00 Test Item Value Reference Range Interpretation Comments Magnesium Lvl (test code = Magnesium 1.8 1.8-2.4 Lvl) [facility] HospitalJfymeweESMLTWXZCANJ6345-70-48 18:46:00 Test Item Value Reference Range Interpretation Comments AGAP (test code = AGAP) 13.2 10.0-20.0 [facility] HospitalDeqeoliYMOMQJTCLHVS7026-39-89 18:46:00 Test Item Value Reference Range Interpretation Comments B/C Ratio (test code = B/C Ratio) 18 6-25 [facility] HospitalGkagkyvYJOHGRVPTMVQ6962-88-95 18:46:00 Test Item Value Reference Range Interpretation Comments A/G Ratio (test code = A/G Ratio) 1.1 0.7-1.6 [facility] HospitalRqrnhkmWQQFRRLUSCUC5460-09-48 18:46:00 Test Item Value Reference Range Interpretation Comments Globulin (test code = Globulin) 3.3 2.0-4.0 [facility] HospitalLqpazluJOTHKHLBPBWD0725-92-13 18:46:00 Test Item Value Reference Range Interpretation Comments eGFR (test code = eGFR) 99 [facility] HospitalEqozgfaQIKNCRUIUPNA6103-89-04 18:46:00 Test Item Value Reference Range Interpretation Comments Calcium Lvl (test code = Calcium Lvl) 9.0 8.5-10.5 [facility] HospitalFysqitaZWUGOVTAAMMV2959-96-35 18:46:00 Test Item Value Reference Range Interpretation Comments Chloride Lvl (test code = Chloride Lvl) 106 95-109 [facility] HospitalQdzotwtXQTHHUMFBKAX7549-69-51 18:46:00 Test Item Value Reference Range Interpretation Comments Creatinine Lvl (test code = Creatinine 0.9 0.5-1.4 Lvl) [facility] HospitalElmyosrQABUNIYRGHFN7793-41-65 18:46:00 Test Item Value Reference Range Interpretation Comments Potassium Lvl (test code = Potassium 4.2 3.5-5.1 Lvl) [facility] HospitalGqwxwlgAXUXBNOUNAWV6637-45-54 18:46:00 Test Item Value Reference Range Interpretation Comments Sodium Lvl (test code = Sodium Lvl) 139 135-145 [facility] HospitalFumtkrtTBCSZAGJASEM5964-63-36 18:46:00 Test Item Value Reference Range Interpretation Comments CO2 (test code = CO2) 24 24-32 [facility] HospitalJymluhoAYUNHBSDYAKO1989-77-42 18:46:00 Test Item Value Reference Range Interpretation Comments BUN (test code = BUN) 16 7-22 [facility] HospitalClqfqmrQRIRNRSXUWVQ6398-42-90 18:46:00 Test Item Value Reference Range Interpretation Comments Glucose Lvl (test code = Glucose Lvl) 141 70-99 [facility] HospitalBelrjpfNPLRNGITZMTG2246-31-05 18:46:00 Test Item Value Reference Range Interpretation Comments Albumin Lvl (test code = Albumin Lvl) 3.6 3.5-5.0 [facility] HospitalZnqxabzPYKBJLQJXKJQ3438-92-13 18:46:00 Test Item Value Reference Range Interpretation Comments Alk Phos (test code = Alk Phos) 65 39-136 [facility] HospitalZjhnaxkGWFOBVMYRVTI8241-54-07 18:46:00 Test Item Value Reference Range Interpretation Comments Bili Total (test code = Bili Total) 0.3 0.2-1.3 [facility] HospitalBeptmjnWZNGBCLRYQRN1423-30-91 18:46:00 Test Item Value Reference Range Interpretation Comments ALT (test code = ALT) 100 See_Comment [Auto mated message] The system which ge nerated this result transmit elizabeth reference range : <=65. The reference range was not used to interpr et this result as margaret l/abnormal. [facility] HospitalXkiegfwYJNRBXLVLLNY5198-57-61 18:46:00 Test Item Value Reference Range Interpretation Comments AST (test code = AST) 53 See_Comment [Auto mated message] The system which ge nerated this result transmit elizabeth reference range : <=37. The reference range was not used to interpr et this result as margaret l/abnormal. [facility] HospitalAhmfzuxKEZWBNSNYUVF4837-15-13 18:46:00 Test Item Value Reference Range Interpretation Comments Total Protein (test code = Total 6.9 6.4-8.4 Protein) [facility] CenterWmmcxoyWRCBIHMJQK5488-91-51 18:46:00 Test Item Value Reference Range Interpretation Comments Eosinophils (test code = 4.2 See_Comment [A utomated message] The Eosinophils) system which ge nerated this result tra nsmitted reference range : <=4.0. The reference r mitra was not used to int erpret this result as normal/abnormal . [facility] CenterEjsuchuXHHIUKNJIA0457-25-25 18:46:00 Test Item Value Reference Range Interpretation Comments Segs (test code = Segs) 56.4 45.0-75.0 [facility] CenterBldtgblDZMVFKGUFQ8543-87-67 18:46:00 Test Item Value Reference Range Interpretation Comments Monocytes (test code = Monocytes) 10.3 2.0-12.0 [facility] CenterOwcflocNQBJIWJATW8923-75-66 18:46:00 Test Item Value Reference Range Interpretation Comments Lymphocytes (test code = Lymphocytes) 28.0 20.0-40.0 [facility] CenterQvgmivbAWNLQJAFXN8146-08-92 18:46:00 Test Item Value Reference Range Interpretation Comments Monocytes # (test code 0.5 See_Comment [Aut omated message] The = Monocytes #) system which generated this result tra nsmitted reference range : <=0.8. The reference r mitra was not used to int erpret this result as normal/abnormal . [facility]IuawvoiHGRNSILPRH2003-17-54 18:46:00 Test Item Value Reference Range Interpretation Comments Basophils (test code = 1.1 See_Comment [Aut omated message] The Basophils) system which ge nerated this result tra nsmitted reference range : <=1.0. The reference r mitra was not used to int erpret this result as normal/abnormal . [place] [id number] 18:46:00 Test Item Value Reference Range Interpretation Comments Lymphocytes # (test code = Lymphocytes 1.5 1.0-5.5 #) [facility] CenterClabwjhQPHZCXDAHQ6310-70-35 18:46:00 Test Item Value Reference Range Interpretation Comments Segs-Bands # (test code = Segs-Bands #) 2.9 1.5-8.1 [facility] CenterPeuiwgrGFCQWJJFWX6976-24-37 18:46:00 Test Item Value Reference Range Interpretation Comments Eosinophils # (test code 0.2 See_Comment [A utomated message] The = Eosinophils #) system whic h generated this result tra nsmitted reference range : <=0.5. The reference r mitra was not used to int erpret this result as normal/abnormal . [facility] CenterUdbmyyqRLPRQECPYH0236-54-30 18:46:00 Test Item Value Reference Range Interpretation Comments Basophils # (test code 0.1 See_Comment [Aut omated message] The = Basophils #) system which generated this result tra nsmitted reference range : <=0.2. The reference r mitra was not used to int erpret this result as normal/abnormal . [facility] CenterHyjcgdqYQDNMGTCFV3443-33-32 18:46:00 Test Item Value Reference Range Interpretation Comments PT (test code = PT) 11.2 s 12.0-14.7 [facility] CenterEhbabbnXEGVXUOLZO4747-05-18 18:46:00 Test Item Value Reference Range Interpretation Comments INR (test code = INR) 0.82 0.85-1.17 [facility] CenterWcgzhgaPOBITMBSMX0569-79-49 18:46:00 Test Item Value Reference Range Interpretation Comments PTT (test code = PTT) 28.6 s 22.9-35.8 [facility] CenterAouczojISSQPVJADB9571-03-54 18:46:00 Test Item Value Reference Range Interpretation Comments MPV (test code = MPV) 8.1 7.4-10.4 [facility] CenterUpmpehnFDAXPLEGZK4105-80-10 18:46:00 Test Item Value Reference Range Interpretation Comments Platelet (test code = Platelet) 301 133-450 [facility] CenterUlqzbbzIWWMKOBEBD0567-69-11 18:46:00 Test Item Value Reference Range Interpretation Comments RDW (test code = RDW) 14.5 11.5-14.5 [facility] CenterIlsntsmJKEGAUTVAZ0783-99-78 18:46:00 Test Item Value Reference Range Interpretation Comments RBC (test code = RBC) 4.84 4.70-6.10 [facility]ABYK0009[facility]-50 18:46:00 Test Item Value Reference Range Interpretation Comments Hgb (test code = Hgb) 14.4 14.0-18.0 [facility]SbfnttlDCBZTYLLLI6574-64-52 18:46:00 Test Item Value Reference Range Interpretation Comments WBC (test code = WBC) 5.2 3.7-10.4 [facility] CenterRdchvzvOZHNPTAOTV7436-38-35 18:46:00 Test Item Value Reference Range Interpretation Comments MCH (test code = MCH) 29.8 pg 27.0-31.0 [facility] CenterNgtarjoDIWYZEMOMK8772-78-73 18:46:00 Test Item Value Reference Range Interpretation Comments MCV (test code = MCV) 92.0 80.0-94.0 [facility] CenterZllobgvTQWBTYBQIT0173-36-72 18:46:00 Test Item Value Reference Range Interpretation Comments Hct (test code = Hct) 44.5 42.0-54.0 [facility]XtmipjgGFXQEVZKGT5275-69-35 18:46:00 Test Item Value Reference Range Interpretation Comments MCHC (test code = MCHC) 32.4 32.0-36.0 [facility] CenterPxdmnplUYGZKHMAUO2568-50-89 18:46:00 Test Item Value Reference Range Interpretation Comments [place]-Hep C Ab (test Negative *NA*(07/22/14 code = [place]-Hep C 1:46 PM) Ab) [facility] AND [id number] 18:46:00 Test Item Value Reference Range Interpretation Comments UA Urobilinogen (test code = UA <=1.0 mg/dL 0.1-1.0 Urobilinogen) [facility] AND [id number] 18:46:00 Test Item Value Reference Range Interpretation Comments UA Sq Epi (test code = UA Sq Epi) None Seen [facility] AND [id number] 18:46:00 Test Item Value Reference Range Interpretation Comments UA Leuk Est (test Negative (07/22/14 1:46 code = UA Leuk Est) PM) [facility] AND [id number] 18:46:00 Test Item Value Reference Range Interpretation Comments UA Nitrite (test code Negative (07/22/14 1:46 = UA Nitrite) PM) [facility] AND [id number] 18:46:00 Test Item Value Reference Range Interpretation Comments UA Blood (test code = Negative (07/22/14 1:46 UA Blood) PM) [facility] AND [id number] 18:46:00 Test Item Value Reference Range Interpretation Comments UA Ketones (test code = UA Negative mg/dL Ketones) [facility] AND [id number] 18:46:00 Test Item Value Reference Range Interpretation Comments UA Bili (test code = Negative *NA*(07/22/14 UA Bili) 1:46 PM) [facility] AND [id number] 18:46:00 Test Item Value Reference Range Interpretation Comments UA Bacteria (test code = UA Occasional /HPF Bacteria) [facility] AND [id number] 18:46:00 Test Item Value Reference Range Interpretation Comments UA RBC (test code = no gt See_Comment [Automa elizabeth message] The UA RBC) system which ge nerated this result transmit elizabeth reference range : <=2. The reference range was not used to interpr et this result as margaret l/abnormal. [facility] AND [id number] 18:46:00 Test Item Value Reference Range Interpretation Comments UA WBC (test code = 1 See_Comment [Automa elizabeth message] The UA WBC) system which ge nerated this result transmit elizabeth reference range : <=5. The reference range was not used to interpr et this result as margaret l/abnormal. [facility] AND [id number] 18:46:00 Test Item Value Reference Range Interpretation Comments UA Glucose (test code = UA Glucose) 30 mg/dL [facility] AND [id number] 18:46:00 Test Item Value Reference Range Interpretation Comments UA Protein (test code = UA Negative mg/dL Protein) [facility] AND [id number] 18:46:00 Test Item Value Reference Range Interpretation Comments UA pH (test code = UA pH) 6.5 5.0-8.0 [facility] AND [id number] 18:46:00 Test Item Value Reference Range Interpretation Comments UA Turbidity (test code = Clear (07/22/14 1:46 UA Turbidity) PM) [facility] [id number] 18:46:00 Test Item Value Reference Range Interpretation Comments UA Spec Grav (test code = UA Spec Grav) 1.010 [facility] [id number] 18:46:00 Test Item Value Reference Range Interpretation Comments UA Color (test code = Light Yellow UA Color) *NA*(07/22/14 1:46 PM) [facility] [id number] 18:46:00 Test Item Value Reference Range Interpretation Comments Magnesium Lvl (test code = Magnesium 1.8 1.8-2.4 Lvl) [facility]awONMBMKBOFHSV2646-49-74 18:46:00 Test Item Value Reference Range Interpretation Comments AGAP (test code = AGAP) 13.2 10.0-20.0 [facility] HospitalMcbudsyPVAQDDDYBFPZ1572-51-66 18:46:00 Test Item Value Reference Range Interpretation Comments B/C Ratio (test code = B/C Ratio) 18 6-25 [facility] HospitalDqwqlogZAIXUESUXMBB6803-62-71 18:46:00 Test Item Value Reference Range Interpretation Comments A/G Ratio (test code = A/G Ratio) 1.1 0.7-1.6 [facility] HospitalRyzdyxuYMESWXMAPUQS9220-24-79 18:46:00 Test Item Value Reference Range Interpretation Comments Globulin (test code = Globulin) 3.3 2.0-4.0 [facility] HospitalBodxjnfOMDSIWEGSBJT2966-64-52 18:46:00 Test Item Value Reference Range Interpretation Comments eGFR (test code = eGFR) 99 [facility] HospitalOfvisisBTJUHQVMBVCG8090-87-01 18:46:00 Test Item Value Reference Range Interpretation Comments Calcium Lvl (test code = Calcium Lvl) 9.0 8.5-10.5 [facility] HospitalJnsfxekXJDEUQEYLOHY3736-24-18 18:46:00 Test Item Value Reference Range Interpretation Comments Chloride Lvl (test code = Chloride Lvl) 106 95-109 [facility] HospitalDwsdysoNGGNPLUSTVIA0860-33-24 18:46:00 Test Item Value Reference Range Interpretation Comments Creatinine Lvl (test code = Creatinine 0.9 0.5-1.4 Lvl) [facility] HospitalHaitbhtWNBHTZDLHXIX2156-47-28 18:46:00 Test Item Value Reference Range Interpretation Comments Potassium Lvl (test code = Potassium 4.2 3.5-5.1 Lvl) [facility] HospitalVmoeaerOKUFQZNIVTYU6573-95-22 18:46:00 Test Item Value Reference Range Interpretation Comments Sodium Lvl (test code = Sodium Lvl) 139 135-145 [facility] HospitalGrqnnhnRVINZRBBVQTF3192-42-43 18:46:00 Test Item Value Reference Range Interpretation Comments CO2 (test code = CO2) 24 24-32 [facility] HospitalSwptbjlLHCPABFWAGMX9325-81-16 18:46:00 Test Item Value Reference Range Interpretation Comments BUN (test code = BUN) 16 7-22 [facility] HospitalNpyphloTRUZYEFVINGM9715-99-76 18:46:00 Test Item Value Reference Range Interpretation Comments Glucose Lvl (test code = Glucose Lvl) 141 70-99 [facility] HospitalYdiupwzXEXSYTNIAWGD5918-73-66 18:46:00 Test Item Value Reference Range Interpretation Comments Albumin Lvl (test code = Albumin Lvl) 3.6 3.5-5.0 [facility] HospitalCkhiwusYBXXAQZNAYEI3314-04-91 18:46:00 Test Item Value Reference Range Interpretation Comments Alk Phos (test code = Alk Phos) 65 39-136 [facility] HospitalMpuhobnISCCGNKIJOAE1378-74-80 18:46:00 Test Item Value Reference Range Interpretation Comments Bili Total (test code = Bili Total) 0.3 0.2-1.3 [facility] HospitalMblojeaAMXWPETESLLQ8518-59-40 18:46:00 Test Item Value Reference Range Interpretation Comments ALT (test code = ALT) 100 See_Comment [Auto mated message] The system which ge nerated this result transmit elizabeth reference range : <=65. The reference range was not used to interpr et this result as margaret l/abnormal. [facility] HospitalIjsrcsdCKYYXGWCVAID8597-06-31 18:46:00 Test Item Value Reference Range Interpretation Comments AST (test code = AST) 53 See_Comment [Auto mated message] The system which ge nerated this result transmit elizabeth reference range : <=37. The reference range was not used to interpr et this result as margaret l/abnormal. [facility] HospitalGeutqcdETCDIKAJEPUH5801-93-62 18:46:00 Test Item Value Reference Range Interpretation Comments Total Protein (test code = Total 6.9 6.4-8.4 Protein) [facility] CenterLskpbteXDCSXQWHPR3880-84-87 18:46:00 Test Item Value Reference Range Interpretation Comments Eosinophils (test code = 4.2 See_Comment [A utomated message] The Eosinophils) system which ge nerated this result tra nsmitted reference range : <=4.0. The reference r mitra was not used to int erpret this result as normal/abnormal . [facility] CenterWkzdyvnIROJDYLGDO5594-92-00 18:46:00 Test Item Value Reference Range Interpretation Comments Segs (test code = Segs) 56.4 45.0-75.0 [facility] CenterRhjctxcAWZYJZDVTT6631-59-34 18:46:00 Test Item Value Reference Range Interpretation Comments Monocytes (test code = Monocytes) 10.3 2.0-12.0 [facility] CenterSqqomarTBQDZKAZAW5492-70-54 18:46:00 Test Item Value Reference Range Interpretation Comments Lymphocytes (test code = Lymphocytes) 28.0 20.0-40.0 [facility] CenterCvjvistLZTGTONUFJ4209-66-26 18:46:00 Test Item Value Reference Range Interpretation Comments Monocytes # (test code 0.5 See_Comment [Aut omated message] The = Monocytes #) system which generated this result tra nsmitted reference range : <=0.8. The reference r mitra was not used to int erpret this result as normal/abnormal . [facility] CenterZgopqedZQEYEPIROT6896-54-15 18:46:00 Test Item Value Reference Range Interpretation Comments Basophils (test code = 1.1 See_Comment [Aut omated message] The Basophils) system which ge nerated this result tra nsmitted reference range : <=1.0. The reference r mitra was not used to int erpret this result as normal/abnormal . [facility] CenterTiudlhdHIVNFYLHLU0744-88-01 18:46:00 Test Item Value Reference Range Interpretation Comments Lymphocytes # (test code = Lymphocytes 1.5 1.0-5.5 #) [facility] CenterLbujcoqNXNDMBJYXK9167-97-47 18:46:00 Test Item Value Reference Range Interpretation Comments Segs-Bands # (test code = Segs-Bands #) 2.9 1.5-8.1 [facility] CenterTnkepzlUXEIPFTJTZ3711-66-15 18:46:00 Test Item Value Reference Range Interpretation Comments Eosinophils # (test code 0.2 See_Comment [A utomated message] The = Eosinophils #) system whic h generated this result tra nsmitted reference range : <=0.5. The reference r mitra was not used to int erpret this result as normal/abnormal . [facility] CenterRetwuscNXPSBYQHYD9025-56-10 18:46:00 Test Item Value Reference Range Interpretation Comments Basophils # (test code 0.1 See_Comment [Aut omated message] The = Basophils #) system which generated this result tra nsmitted reference range : <=0.2. The reference r mitra was not used to int erpret this result as normal/abnormal . [facility] CenterGyvqfvlZDPIKJDJKZ4306-92-05 18:46:00 Test Item Value Reference Range Interpretation Comments PT (test code = PT) 11.2 s 12.0-14.7 [facility] CenterLasrvyyRZWJWAGUEJ0380-46-07 18:46:00 Test Item Value Reference Range Interpretation Comments INR (test code = INR) 0.82 0.85-1.17 [facility] CenterZxskspoQRLARZWNOX3432-50-64 18:46:00 Test Item Value Reference Range Interpretation Comments PTT (test code = PTT) 28.6 s 22.9-35.8 [facility] CenterQqajuynHEWWVOPBES0338-81-12 18:46:00 Test Item Value Reference Range Interpretation Comments MPV (test code = MPV) 8.1 7.4-10.4 [facility] CenterShszuyzPXYMIUWJQW3812-19-19 18:46:00 Test Item Value Reference Range Interpretation Comments Platelet (test code = Platelet) 301 133-450 [facility] CenterNnpctigAKJKTTFYOC4989-68-70 18:46:00 Test Item Value Reference Range Interpretation Comments RDW (test code = RDW) 14.5 11.5-14.5 [facility] CenterDdtckzzGGQTIDYBCN8133-76-63 18:46:00 Test Item Value Reference Range Interpretation Comments RBC (test code = RBC) 4.84 4.70-6.10 [facility] CenterRepwrywSUHWCWKMQP8004-51-64 18:46:00 Test Item Value Reference Range Interpretation Comments Hgb (test code = Hgb) 14.4 14.0-18.0 [facility] CenterEktaashAKRLDZPFXK6858-70-11 18:46:00 Test Item Value Reference Range Interpretation Comments WBC (test code = WBC) 5.2 3.7-10.4 [facility] CenterMcacfhfCCYDBKJTZM8075-91-07 18:46:00 Test Item Value Reference Range Interpretation Comments MCH (test code = MCH) 29.8 pg 27.0-31.0 [facility] VbccupjHJJQEFFMXQ8367-10-08 18:46:00 Test Item Value Reference Range Interpretation Comments MCV (test code = MCV) 92.0 80.0-94.0 [facility] PsracsvVLGARFRJJH1551-08-47 18:46:00 Test Item Value Reference Range Interpretation Comments Hct (test code = Hct) 44.5 42.0-54.0 [facility] XxohhzhIIHEZETFDW8595-86-69 18:46:00 Test Item Value Reference Range Interpretation Comments MCHC (test code = MCHC) 32.4 32.0-36.0 [facility] OqycagbMSKBFTMSXV6107-42-56 18:46:00 Test Item Value Reference Range Interpretation Comments [place]-Hep C Ab (test Negative *NA*(07/22/14 code = [place]-Hep C 1:46 PM) Ab) [facility] AND [id number] 18:46:00 Test Item Value Reference Range Interpretation Comments UA Urobilinogen (test code = UA <=1.0 mg/dL 0.1-1.0 Urobilinogen) [facility] AND [id number] 18:46:00 Test Item Value Reference Range Interpretation Comments UA Sq Epi (test code = UA Sq Epi) None Seen [facility] AND [id number] 18:46:00 Test Item Value Reference Range Interpretation Comments UA Leuk Est (test Negative (07/22/14 1:46 code = UA Leuk Est) PM) [facility] AND [id number] 18:46:00 Test Item Value Reference Range Interpretation Comments UA Nitrite (test code Negative (07/22/14 1:46 = UA Nitrite) PM) [facility] AND [id number] 18:46:00 Test Item Value Reference Range Interpretation Comments UA Blood (test code = Negative (07/22/14 1:46 UA Blood) PM) [facility] AND [id number] 18:46:00 Test Item Value Reference Range Interpretation Comments UA Ketones (test code = UA Negative mg/dL Ketones) [facility] AND [id number] 18:46:00 Test Item Value Reference Range Interpretation Comments UA Bili (test code = Negative *NA*(07/22/14 UA Bili) 1:46 PM) [facility] [id number] 18:46:00 Test Item Value Reference Range Interpretation Comments UA Bacteria (test code = UA Occasional /HPF Bacteria) [facility] AND [id number] 18:46:00 Test Item Value Reference Range Interpretation Comments UA RBC (test code = no gt See_Comment [Automa elizabeth message] The UA RBC) system which ge nerated this result transmit elizabeth reference range : <=2. The reference range was not used to interpr et this result as margaret l/abnormal. [facility] AND [id number] 18:46:00 Test Item Value Reference Range Interpretation Comments UA WBC (test code = 1 See_Comment [Automa elizabeth message] The UA WBC) system which ge nerated this result transmit elizabeth reference range : <=5. The reference range was not used to interpr et this result as margaret l/abnormal. [facility] [id number] 18:46:00 Test Item Value Reference Range Interpretation Comments UA Glucose (test code = UA Glucose) 30 mg/dL [facility] AND [id number] 18:46:00 Test Item Value Reference Range Interpretation Comments UA Protein (test code = UA Negative mg/dL Protein) [facility] AND [id number] 18:46:00 Test Item Value Reference Range Interpretation Comments UA pH (test code = UA pH) 6.5 5.0-8.0 [facility]ann[facility] AND [id number] 18:46:00 Test Item Value Reference Range Interpretation Comments UA Turbidity (test code = Clear (07/22/14 1:46 UA Turbidity) PM) [facility] AND [id number] 18:46:00 Test Item Value Reference Range Interpretation Comments UA Spec Grav (test code = UA Spec Grav) 1.010 [facility]ann[facility] AND [id number] 18:46:00 Test Item Value Reference Range Interpretation Comments UA Color (test code = Light Yellow UA Color) *NA*(07/22/14 1:46 PM) [facility] CenterannCHEM [id number] 18:46:00 Test Item Value Reference Range Interpretation Comments Magnesium Lvl (test code = Magnesium 1.8 1.8-2.4 Lvl) [facility] HospitalKtuziwxTYNNOZKMHWDI5033-39-22 18:46:00 Test Item Value Reference Range Interpretation Comments AGAP (test code = AGAP) 13.2 10.0-20.0 [facility] HospitalNapywsxBINAQRRYLSXE3271-36-52 18:46:00 Test Item Value Reference Range Interpretation Comments B/C Ratio (test code = B/C Ratio) 18 6-25 [facility] HospitalHrcqlgyTQWKMLIKVRGT9078-40-47 18:46:00 Test Item Value Reference Range Interpretation Comments A/G Ratio (test code = A/G Ratio) 1.1 0.7-1.6 [facility] HospitalCfyhpskJTNZFTMIRPUG4458-87-93 18:46:00 Test Item Value Reference Range Interpretation Comments Globulin (test code = Globulin) 3.3 2.0-4.0 [facility] HospitalLwhdpntKNXWFWQYNSLC4921-95-50 18:46:00 Test Item Value Reference Range Interpretation Comments eGFR (test code = eGFR) 99 [facility] HospitalLgtiicrHROZWOCPIVVG2830-00-35 18:46:00 Test Item Value Reference Range Interpretation Comments Calcium Lvl (test code = Calcium Lvl) 9.0 8.5-10.5 [facility] HospitalBlwztozRORAJZEBJCRL1346-38-53 18:46:00 Test Item Value Reference Range Interpretation Comments Chloride Lvl (test code = Chloride Lvl) 106 95-109 [facility] HospitalMtotnciHEWMUETHIDLX0642-16-04 18:46:00 Test Item Value Reference Range Interpretation Comments Creatinine Lvl (test code = Creatinine 0.9 0.5-1.4 Lvl) [facility] HospitalWqrgecnPLBSAXEHCVDZ4033-17-71 18:46:00 Test Item Value Reference Range Interpretation Comments Potassium Lvl (test code = Potassium 4.2 3.5-5.1 Lvl) [facility] HospitalOakhqwpZDCRMVHFTTVS2303-27-11 18:46:00 Test Item Value Reference Range Interpretation Comments Sodium Lvl (test code = Sodium Lvl) 139 135-145 [facility] HospitalPkhtsaoDEMISNIRWRZG6212-66-94 18:46:00 Test Item Value Reference Range Interpretation Comments CO2 (test code = CO2) 24 24-32 [facility] HospitalGmbnmfuQLCTOQFZEBWE1101-96-19 18:46:00 Test Item Value Reference Range Interpretation Comments BUN (test code = BUN) 16 7-22 [facility] HospitalRmgksqrNGOCJCDAARAO0745-23-78 18:46:00 Test Item Value Reference Range Interpretation Comments Glucose Lvl (test code = Glucose Lvl) 141 70-99 [facility] HospitalYcnxlqtAUYONCACUJND6136-02-92 18:46:00 Test Item Value Reference Range Interpretation Comments Albumin Lvl (test code = Albumin Lvl) 3.6 3.5-5.0 [facility] HospitalIvcyivyFELAMMXJJKYB2949-12-76 18:46:00 Test Item Value Reference Range Interpretation Comments Alk Phos (test code = Alk Phos) 65 39-136 [facility] HospitalSoqnlxgIEDVRWEDOYZT7281-14-69 18:46:00 Test Item Value Reference Range Interpretation Comments Bili Total (test code = Bili Total) 0.3 0.2-1.3 [facility] HospitalUjuvaqbTIWMGUTZLBEK6421-07-21 18:46:00 Test Item Value Reference Range Interpretation Comments ALT (test code = ALT) 100 See_Comment [Auto mated message] The system which ge nerated this result transmit elizabeth reference range : <=65. The reference range was not used to interpr et this result as margaret l/abnormal. [facility] HospitalNuegvqqHVWYITGTRANZ6741-73-60 18:46:00 Test Item Value Reference Range Interpretation Comments AST (test code = AST) 53 See_Comment [Auto mated message] The system which ge nerated this result transmit elizabeth reference range : <=37. The reference range was not used to interpr et this result as margaret l/abnormal. [facility] HospitalDuavlihQYPVDVMZCWVF9854-89-26 18:46:00 Test Item Value Reference Range Interpretation Comments Total Protein (test code = Total 6.9 6.4-8.4 Protein) [facility] CenterOzjzdtdWSRLQWBQFE1744-59-82 18:46:00 Test Item Value Reference Range Interpretation Comments Eosinophils (test code = 4.2 See_Comment [A utomated message] The Eosinophils) system which ge nerated this result tra nsmitted reference range : <=4.0. The reference r mitra was not used to int erpret this result as normal/abnormal . [facility] CenterErevydaPSTYHLQZFI3427-38-69 18:46:00 Test Item Value Reference Range Interpretation Comments Segs (test code = Segs) 56.4 45.0-75.0 [facility] CenterLeuuwcpLYASYDCVBM4029-71-75 18:46:00 Test Item Value Reference Range Interpretation Comments Monocytes (test code = Monocytes) 10.3 2.0-12.0 [facility] CenterCahfmzvOGHTLNTBUH0196-61-28 18:46:00 Test Item Value Reference Range Interpretation Comments Lymphocytes (test code = Lymphocytes) 28.0 20.0-40.0 [facility] CenterHrgeaqwJMJCLBHKZQ0037-53-12 18:46:00 Test Item Value Reference Range Interpretation Comments Monocytes # (test code 0.5 See_Comment [Aut omated message] The = Monocytes #) system which generated this result tra nsmitted reference range : <=0.8. The reference r mitra was not used to int erpret this result as normal/abnormal . [facility] CenterFnykjqqJNESIWIMLN6517-73-64 18:46:00 Test Item Value Reference Range Interpretation Comments Basophils (test code = 1.1 See_Comment [Aut omated message] The Basophils) system which ge nerated this result tra nsmitted reference range : <=1.0. The reference r mitra was not used to int erpret this result as normal/abnormal . [facility] CenterMnwxpkfDYTJHFMAVZ4916-76-45 18:46:00 Test Item Value Reference Range Interpretation Comments Lymphocytes # (test code = Lymphocytes 1.5 1.0-5.5 #) [facility] CenterWbvtjkfJLFOCQPXYI2990-79-12 18:46:00 Test Item Value Reference Range Interpretation Comments Segs-Bands # (test code = Segs-Bands #) 2.9 1.5-8.1 [facility] CenterClrcsmcXNAVURXJDN3766-54-00 18:46:00 Test Item Value Reference Range Interpretation Comments Eosinophils # (test code 0.2 See_Comment [A utomated message] The = Eosinophils #) system ic h generated this result tra nsmitted reference range : <=0.5. The reference r mitra was not used to int erpret this result as normal/abnormal . [facility] CenterZttowtcYACQYXKHVT3039-32-38 18:46:00 Test Item Value Reference Range Interpretation Comments Basophils # (test code 0.1 See_Comment [Aut omated message] The = Basophils #) system which generated this result tra nsmitted reference range : <=0.2. The reference r mitra was not used to int erpret this result as normal/abnormal . [facility] CenterCoyhgwqOSYRJSXFAJ4599-93-11 18:46:00 Test Item Value Reference Range Interpretation Comments PT (test code = PT) 11.2 s 12.0-14.7 [facility] CenterRzgqmklUDCRCGIORM2173-97-27 18:46:00 Test Item Value Reference Range Interpretation Comments INR (test code = INR) 0.82 0.85-1.17 [facility] CenterSkynzdnUFSWPIHAEW4110-89-88 18:46:00 Test Item Value Reference Range Interpretation Comments PTT (test code = PTT) 28.6 s 22.9-35.8 [facility] CenterJrgebkpDBQJFTOJWN2718-68-41 18:46:00 Test Item Value Reference Range Interpretation Comments MPV (test code = MPV) 8.1 7.4-10.4 [facility] CenterPrixwctNOYNIDPHKY2723-94-41 18:46:00 Test Item Value Reference Range Interpretation Comments Platelet (test code = Platelet) 301 133-450 [facility] CenterAkpbkqpQKXASYPHVB0529-07-24 18:46:00 Test Item Value Reference Range Interpretation Comments RDW (test code = RDW) 14.5 11.5-14.5 [facility] CenterFnosxgnKZGNUKTURY9337-06-80 18:46:00 Test Item Value Reference Range Interpretation Comments RBC (test code = RBC) 4.84 4.70-6.10 [facility] CenterOluzgbyFUQPUILOWU5406-64-92 18:46:00 Test Item Value Reference Range Interpretation Comments Hgb (test code = Hgb) 14.4 14.0-18.0 [facility] CenterKlrvmvbETSZWPRGQC9806-72-18 18:46:00 Test Item Value Reference Range Interpretation Comments WBC (test code = WBC) 5.2 3.7-10.4 [facility] CenterPuyocxkFIRACGWXNZ6732-16-39 18:46:00 Test Item Value Reference Range Interpretation Comments MCH (test code = MCH) 29.8 pg 27.0-31.0 [facility] CenterPvzrslaVDTHIGCZAE5469-97-62 18:46:00 Test Item Value Reference Range Interpretation Comments MCV (test code = MCV) 92.0 80.0-94.0 [facility] CenterRmeeggjZNTWWAMHOJ7184-46-94 18:46:00 Test Item Value Reference Range Interpretation Comments Hct (test code = Hct) 44.5 42.0-54.0 [facility] CenterQhwzmeqXPGCYQVBKB9910-47-40 18:46:00 Test Item Value Reference Range Interpretation Comments MCHC (test code = MCHC) 32.4 32.0-36.0 [facility]NpeseusGZVPKZFIHV9658-35-45 18:46:00 Test Item Value Reference Range Interpretation Comments [place]-Hep C Ab (test Negative *NA*(07/22/14 code = [place]-Hep C 1:46 PM) Ab) [facility] AND [id number] 18:46:00 Test Item Value Reference Range Interpretation Comments UA Urobilinogen (test code = UA <=1.0 mg/dL 0.1-1.0 Urobilinogen) [facility] AND [id number] 18:46:00 Test Item Value Reference Range Interpretation Comments UA Sq Epi (test code = UA Sq Epi) None Seen [facility] AND [id number] 18:46:00 Test Item Value Reference Range Interpretation Comments UA Leuk Est (test Negative (07/22/14 1:46 code = UA Leuk Est) PM) [facility] AND [id number] 18:46:00 Test Item Value Reference Range Interpretation Comments UA Nitrite (test code Negative (07/22/14 1:46 = UA Nitrite) PM) [facility] AND [id number] 18:46:00 Test Item Value Reference Range Interpretation Comments UA Blood (test code = Negative (07/22/14 1:46 UA Blood) PM) [facility] AND [id number] 18:46:00 Test Item Value Reference Range Interpretation Comments UA Ketones (test code = UA Negative mg/dL Ketones) [facility] AND [id number] 18:46:00 Test Item Value Reference Range Interpretation Comments UA Bili (test code = Negative *NA*(07/22/14 UA Bili) 1:46 PM) [facility] AND [id number] 18:46:00 Test Item Value Reference Range Interpretation Comments UA Bacteria (test code = UA Occasional /HPF Bacteria) [facility] AND [id number] 18:46:00 Test Item Value Reference Range Interpretation Comments UA RBC (test code = no gt See_Comment [Automa elizabeth message] The UA RBC) system which ge nerated this result transmit elizabeth reference range : <=2. The reference range was not used to interpr et this result as margaret l/abnormal. [facility] AND [id number] 18:46:00 Test Item Value Reference Range Interpretation Comments UA WBC (test code = 1 See_Comment [Automa elizabeth message] The UA WBC) system which ge nerated this result transmit elizabeth reference range : <=5. The reference range was not used to interpr et this result as margaret l/abnormal. [facility] AND [id number] 18:46:00 Test Item Value Reference Range Interpretation Comments UA Glucose (test code = UA Glucose) 30 mg/dL [facility] AND [id number] 18:46:00 Test Item Value Reference Range Interpretation Comments UA Protein (test code = UA Negative mg/dL Protein) [facility] AND [id number] 18:46:00 Test Item Value Reference Range Interpretation Comments UA pH (test code = UA pH) 6.5 5.0-8.0 [facility] AND [id number] 18:46:00 Test Item Value Reference Range Interpretation Comments UA Turbidity (test code = Clear (07/22/14 1:46 UA Turbidity) PM) [facility] AND [id number] 18:46:00 Test Item Value Reference Range Interpretation Comments UA Spec Grav (test code = UA Spec Grav) 1.010 [facility] AND [id number] 18:46:00 Test Item Value Reference Range Interpretation Comments UA Color (test code = Light Yellow UA Color) *NA*(07/22/14 1:46 PM) [facility] [id number] 18:46:00 Test Item Value Reference Range Interpretation Comments Magnesium Lvl (test code = Magnesium 1.8 1.8-2.4 Lvl) [facility] HospitalSayanjkHOXARXXRPAVY5880-35-98 18:46:00 Test Item Value Reference Range Interpretation Comments AGAP (test code = AGAP) 13.2 10.0-20.0 [facility] HospitalQphkrufDRIKPTZBNEYA0364-58-50 18:46:00 Test Item Value Reference Range Interpretation Comments B/C Ratio (test code = B/C Ratio) 18 6-25 [facility] HospitalTrrxdudNOJRBKQCCQHU0137-02-78 18:46:00 Test Item Value Reference Range Interpretation Comments A/G Ratio (test code = A/G Ratio) 1.1 0.7-1.6 [facility] HospitalCbohqcvNXILYRQFUFYI0526-00-74 18:46:00 Test Item Value Reference Range Interpretation Comments Globulin (test code = Globulin) 3.3 2.0-4.0 [facility] HospitalZxcrybcBALRVKTGUART6985-48-68 18:46:00 Test Item Value Reference Range Interpretation Comments eGFR (test code = eGFR) 99 [facility] HospitalOkwwdsdFJJVGANFFGVO0432-75-04 18:46:00 Test Item Value Reference Range Interpretation Comments Calcium Lvl (test code = Calcium Lvl) 9.0 8.5-10.5 [facility] HospitalDfqohmdUXKMZGBEEWQQ0321-70-91 18:46:00 Test Item Value Reference Range Interpretation Comments Chloride Lvl (test code = Chloride Lvl) 106 95-109 [facility] HospitalErcwlgdTNFMTGGZDPEG8160-60-73 18:46:00 Test Item Value Reference Range Interpretation Comments Creatinine Lvl (test code = Creatinine 0.9 0.5-1.4 Lvl) [facility] HospitalJflnfzxKARGPOTVGWMB1905-24-38 18:46:00 Test Item Value Reference Range Interpretation Comments Potassium Lvl (test code = Potassium 4.2 3.5-5.1 Lvl) [facility] HospitalZxlcbwcVDTEIIDCEABP6752-37-60 18:46:00 Test Item Value Reference Range Interpretation Comments Sodium Lvl (test code = Sodium Lvl) 139 135-145 [facility] HospitalXdjommyHEMLQDIVGDIT6135-81-68 18:46:00 Test Item Value Reference Range Interpretation Comments CO2 (test code = CO2) 24 24-32 [facility] HospitalVcawohgWVFKAFPLPXXL1639-55-98 18:46:00 Test Item Value Reference Range Interpretation Comments BUN (test code = BUN) 16 7-22 [facility] HospitalOfvbinwVBZWTMYPMUIN2632-09-29 18:46:00 Test Item Value Reference Range Interpretation Comments Glucose Lvl (test code = Glucose Lvl) 141 70-99 [facility] HospitalLlxyhpkBCZXGKZZKIEK9322-83-53 18:46:00 Test Item Value Reference Range Interpretation Comments Albumin Lvl (test code = Albumin Lvl) 3.6 3.5-5.0 [facility] HospitalWmfodxfBKIKTLDWNGKL9413-20-07 18:46:00 Test Item Value Reference Range Interpretation Comments Alk Phos (test code = Alk Phos) 65 39-136 [facility] HospitalTeylqfkCJEKZEDEKUZC5020-51-92 18:46:00 Test Item Value Reference Range Interpretation Comments Bili Total (test code = Bili Total) 0.3 0.2-1.3 [facility] HospitalKymsycpPJULVVDKFVWB3088-33-07 18:46:00 Test Item Value Reference Range Interpretation Comments ALT (test code = ALT) 100 See_Comment [Auto mated message] The system which ge nerated this result transmit elizabeth reference range : <=65. The reference range was not used to interpr et this result as margaret l/abnormal. [facility] HospitalDfzxgnaFHVUKGPAIDMC0817-21-81 18:46:00 Test Item Value Reference Range Interpretation Comments AST (test code = AST) 53 See_Comment [Auto mated message] The system which ge nerated this result transmit elizabeth reference range : <=37. The reference range was not used to interpr et this result as margaret l/abnormal. [facility] HospitalEswxvwnMTTWQFAAVUIB4285-70-73 18:46:00 Test Item Value Reference Range Interpretation Comments Total Protein (test code = Total 6.9 6.4-8.4 Protein) [facility] CenterTurqnsyHVAHPNVYHL2314-83-04 18:46:00 Test Item Value Reference Range Interpretation Comments Eosinophils (test code = 4.2 See_Comment [A utomated message] The Eosinophils) system which ge nerated this result tra nsmitted reference range : <=4.0. The reference r mitra was not used to int erpret this result as normal/abnormal . [facility] CenterDwmznruPICKVUQHJK2120-24-09 18:46:00 Test Item Value Reference Range Interpretation Comments Segs (test code = Segs) 56.4 45.0-75.0 [facility] CenterQndbfnhPVTWHLILOY8447-94-25 18:46:00 Test Item Value Reference Range Interpretation Comments Monocytes (test code = Monocytes) 10.3 2.0-12.0 [facility] CenterTgdhhoiFIABAFBIMU6864-24-56 18:46:00 Test Item Value Reference Range Interpretation Comments Lymphocytes (test code = Lymphocytes) 28.0 20.0-40.0 [facility] CenterXaioxsuSZRWPUJPPG7449-31-68 18:46:00 Test Item Value Reference Range Interpretation Comments Monocytes # (test code 0.5 See_Comment [Aut omated message] The = Monocytes #) system which generated this result tra nsmitted reference range : <=0.8. The reference r mitra was not used to int erpret this result as normal/abnormal . [facility] CenterXmskwszPPINONWSAQ7995-39-17 18:46:00 Test Item Value Reference Range Interpretation Comments Basophils (test code = 1.1 See_Comment [Aut omated message] The Basophils) system which ge nerated this result tra nsmitted reference range : <=1.0. The reference r mitra was not used to int erpret this result as normal/abnormal . [facility] CenterEcsnwnhVZMVAYYDCG0903-02-04 18:46:00 Test Item Value Reference Range Interpretation Comments Lymphocytes # (test code = Lymphocytes 1.5 1.0-5.5 #) [facility] CenterZcpcbtxLTAKMPLLKO3695-64-74 18:46:00 Test Item Value Reference Range Interpretation Comments Segs-Bands # (test code = Segs-Bands #) 2.9 1.5-8.1 [facility] CenterIpcssogSBOLMJGPAK5517-53-33 18:46:00 Test Item Value Reference Range Interpretation Comments Eosinophils # (test code 0.2 See_Comment [A utomated message] The = Eosinophils #) system whic h generated this result tra nsmitted reference range : <=0.5. The reference r mitra was not used to int erpret this result as normal/abnormal . [facility] CenterYicqjfhLFCAVDHWGT7823-15-54 18:46:00 Test Item Value Reference Range Interpretation Comments Basophils # (test code 0.1 See_Comment [Aut omated message] The = Basophils #) system which generated this result tra nsmitted reference range : <=0.2. The reference r mitra was not used to int erpret this result as normal/abnormal . [facility] CenterGvqwykeYPMEWLWAWB5684-51-77 18:46:00 Test Item Value Reference Range Interpretation Comments PT (test code = PT) 11.2 s 12.0-14.7 [facility] CenterWjapsbcDLJLWNUPKY0738-80-57 18:46:00 Test Item Value Reference Range Interpretation Comments INR (test code = INR) 0.82 0.85-1.17 [facility] CenterZjvfpcpQJELFIIHFQ0714-97-32 18:46:00 Test Item Value Reference Range Interpretation Comments PTT (test code = PTT) 28.6 s 22.9-35.8 [facility] CenterVjcqrlpLAQQSQFLGB8336-53-22 18:46:00 Test Item Value Reference Range Interpretation Comments MPV (test code = MPV) 8.1 7.4-10.4 [facility] CenterAjnfrloJPGYIHFZGM6984-06-95 18:46:00 Test Item Value Reference Range Interpretation Comments Platelet (test code = Platelet) 301 133-450 [facility]frgllkELNAHIEFFB5228-07-45 18:46:00 Test Item Value Reference Range Interpretation Comments RDW (test code = RDW) 14.5 11.5-14.5 [facility]ApaiiudZQCTEZCAXL6734-61-56 18:46:00 Test Item Value Reference Range Interpretation Comments RBC (test code = RBC) 4.84 4.70-6.10 [facility] SystemZxqzwdkZHLGQUJOFK4980-97-74 18:46:00 Test Item Value Reference Range Interpretation Comments Hgb (test code = Hgb) 14.4 14.0-18.0 [facility] CenterKphdimgYDHLGKYURJ5457-94-66 18:46:00 Test Item Value Reference Range Interpretation Comments WBC (test code = WBC) 5.2 3.7-10.4 [facility] CenterJvudrmaVNQPEBQJEF7441-33-11 18:46:00 Test Item Value Reference Range Interpretation Comments MCH (test code = MCH) 29.8 pg 27.0-31.0 [facility] SystemVoydpavBNQSRQUZHY7211-57-60 18:46:00 Test Item Value Reference Range Interpretation Comments MCV (test code = MCV) 92.0 80.0-94.0 [facility] SystemZrasvbbRMYQSLGIUB6274-59-65 18:46:00 Test Item Value Reference Range Interpretation Comments Hct (test code = Hct) 44.5 42.0-54.0 [facility] SystemVgkbuqgLQAGEPSJHX9103-41-01 18:46:00 Test Item Value Reference Range Interpretation Comments MCHC (test code = MCHC) 32.4 32.0-36.0 [facility]NmggzxtZFRSQJMWWK7904-31-00 18:46:00 Test Item Value Reference Range Interpretation Comments [place]-Hep C Ab (test Negative *NA*(07/22/14 code = [place]-Hep C 1:46 PM) Ab) [facility] [id number] 18:46:00 Test Item Value Reference Range Interpretation Comments UA Urobilinogen (test code = UA <=1.0 mg/dL 0.1-1.0 Urobilinogen) [facility] [id number] 18:46:00 Test Item Value Reference Range Interpretation Comments UA Sq Epi (test code = UA Sq Epi) None [facility]en [facility] [id number] 18:46:00 Test Item Value Reference Range Interpretation Comments UA Leuk Est (test Negative (07/22/14 1:46 code = UA Leuk Est) PM) [facility] AND [id number] 18:46:00 Test Item Value Reference Range Interpretation Comments UA Nitrite (test code Negative (07/22/14 1:46 = UA Nitrite) PM) [facility] AND [id number] 18:46:00 Test Item Value Reference Range Interpretation Comments UA Blood (test code = Negative (07/22/14 1:46 UA Blood) PM) [facility] AND [id number] 18:46:00 Test Item Value Reference Range Interpretation Comments UA Ketones (test code = UA Negative mg/dL Ketones) [facility] AND [id number] 18:46:00 Test Item Value Reference Range Interpretation Comments UA Bili (test code = Negative *NA*(07/22/14 UA Bili) 1:46 PM) [facility] AND [id number] 18:46:00 Test Item Value Reference Range Interpretation Comments UA Bacteria (test code = UA Occasional /HPF Bacteria) [facility] AND [id number] 18:46:00 Test Item Value Reference Range Interpretation Comments UA RBC (test code = no gt See_Comment [Automa elizabeth message] The UA RBC) system which ge nerated this result transmit elizabeth reference range : <=2. The reference range was not used to interpr et this result as margaret l/abnormal. [facility] AND [id number] 18:46:00 Test Item Value Reference Range Interpretation Comments UA WBC (test code = 1 See_Comment [Automa elizabeth message] The UA WBC) system which ge nerated this result transmit elizabeth reference range : <=5. The reference range was not used to interpr et this result as margaret l/abnormal. [facility] AND [id number] 18:46:00 Test Item Value Reference Range Interpretation Comments UA Glucose (test code = UA Glucose) 30 mg/dL [facility] AND [id number] 18:46:00 Test Item Value Reference Range Interpretation Comments UA Protein (test code = UA Negative mg/dL Protein) [facility] AND [id number] 18:46:00 Test Item Value Reference Range Interpretation Comments UA pH (test code = UA pH) 6.5 5.0-8.0 [facility] [id number] 18:46:00 Test Item Value Reference Range Interpretation Comments UA Turbidity (test code = Clear (07/22/14 1:46 UA Turbidity) PM) [facility] [id number] 18:46:00 Test Item Value Reference Range Interpretation Comments UA Spec Grav (test code = UA Spec Grav) 1.010 [facility] AND [id number] 18:46:00 Test Item Value Reference Range Interpretation Comments UA Color (test code = Light Yellow UA Color) *NA*(07/22/14 1:46 PM) [facility] [id number] 18:46:00 Test Item Value Reference Range Interpretation Comments Magnesium Lvl (test code = Magnesium 1.8 1.8-2.4 Lvl) [facility]EiyjcclJWCTRMSJNRDP5742-88-37 18:46:00 Test Item Value Reference Range Interpretation Comments AGAP (test code = AGAP) 13.2 10.0-20.0 [facility]KxxfxawMXTEVQEKIFBL5569-70-93 18:46:00 Test Item Value Reference Range Interpretation Comments B/C Ratio (test code = B/C Ratio) 18 6-25 [facility] HospitalNwfuchdQAJVEHHHLXHE4605-67-90 18:46:00 Test Item Value Reference Range Interpretation Comments A/G Ratio (test code = A/G Ratio) 1.1 0.7-1.6 [facility] RegionalUeplycqJUCGQWDEWAMS5276-84-03 18:46:00 Test Item Value Reference Range Interpretation Comments Globulin (test code = Globulin) 3.3 2.0-4.0 [facility] RegionalGcdfwgdOURIASXEXURL0597-82-60 18:46:00 Test Item Value Reference Range Interpretation Comments eGFR (test code = eGFR) 99 [facility]ApwktbqWKGLQWRIZAGL2471-57-30 18:46:00 Test Item Value Reference Range Interpretation Comments Calcium Lvl (test code = Calcium Lvl) 9.0 8.5-10.5 [facility] RegionalJqbbtsbYZBDOFHXCSSO5381-92-59 18:46:00 Test Item Value Reference Range Interpretation Comments Chloride Lvl (test code = Chloride Lvl) 106 95-109 [facility] HospitalRjbhrtzHTHAWEWKRHWO1112-35-19 18:46:00 Test Item Value Reference Range Interpretation Comments Creatinine Lvl (test code = Creatinine 0.9 0.5-1.4 Lvl) [facility] HospitalSsjojmkZVIPVMGIPNNX0182-58-74 18:46:00 Test Item Value Reference Range Interpretation Comments Potassium Lvl (test code = Potassium 4.2 3.5-5.1 Lvl) [facility] HospitalHthzqrjINIGAYGEIZCJ4374-05-86 18:46:00 Test Item Value Reference Range Interpretation Comments Sodium Lvl (test code = Sodium Lvl) 139 135-145 [facility] HospitalOzxkxheVGSUMFICEASE3414-70-60 18:46:00 Test Item Value Reference Range Interpretation Comments CO2 (test code = CO2) 24 24-32 [facility] HospitalIuothjkDBAQWUNNLBRO1224-15-86 18:46:00 Test Item Value Reference Range Interpretation Comments BUN (test code = BUN) 16 7-22 [facility] HospitalCttloilUCMGTNUIIAEN1115-79-47 18:46:00 Test Item Value Reference Range Interpretation Comments Glucose Lvl (test code = Glucose Lvl) 141 70-99 [facility] HospitalOjxibomFMJIEMYYQYKR7829-90-46 18:46:00 Test Item Value Reference Range Interpretation Comments Albumin Lvl (test code = Albumin Lvl) 3.6 3.5-5.0 [facility] HospitalMxlyqugFZTUCUSZBBMT2225-64-95 18:46:00 Test Item Value Reference Range Interpretation Comments Alk Phos (test code = Alk Phos) 65 39-136 [facility] HospitalToxmjjuXYKLYWLWJOCV4765-15-21 18:46:00 Test Item Value Reference Range Interpretation Comments Bili Total (test code = Bili Total) 0.3 0.2-1.3 [facility] HospitalJpqlfdlIIWWCMYOIBPU6978-71-95 18:46:00 Test Item Value Reference Range Interpretation Comments ALT (test code = ALT) 100 See_Comment [Auto mated message] The system which ge nerated this result transmit elizabeth reference range : <=65. The reference range was not used to interpr et this result as margaret l/abnormal. [facility] HospitalYrgbpyqFECKVBTNDOFK0774-72-31 18:46:00 Test Item Value Reference Range Interpretation Comments AST (test code = AST) 53 See_Comment [Auto mated message] The system which ge nerated this result transmit elizabeth reference range : <=37. The reference range was not used to interpr et this result as margaret l/abnormal. [facility] HospitalXofdsfyZUEOHLGLEIFA7456-53-00 18:46:00 Test Item Value Reference Range Interpretation Comments Total Protein (test code = Total 6.9 6.4-8.4 Protein) [facility] CenterUtkgsqgCEFINBODFE0333-67-00 18:46:00 Test Item Value Reference Range Interpretation Comments Eosinophils (test code = 4.2 See_Comment [A utomated message] The Eosinophils) system which ge nerated this result tra nsmitted reference range : <=4.0. The reference r mitra was not used to int erpret this result as normal/abnormal . [facility] CenterQtuumpzTDZLWPUVOJ2475-66-01 18:46:00 Test Item Value Reference Range Interpretation Comments Segs (test code = Segs) 56.4 45.0-75.0 [facility] CenterXqhqcczQQHMLFCAXL5233-39-48 18:46:00 Test Item Value Reference Range Interpretation Comments Monocytes (test code = Monocytes) 10.3 2.0-12.0 [facility] CenterGdxbuntHZXLBARALJ5193-82-82 18:46:00 Test Item Value Reference Range Interpretation Comments Lymphocytes (test code = Lymphocytes) 28.0 20.0-40.0 [facility] CenterDgmdibvVVZEXNXOEK0299-84-14 18:46:00 Test Item Value Reference Range Interpretation Comments Monocytes # (test code 0.5 See_Comment [Aut omated message] The = Monocytes #) system which generated this result tra nsmitted reference range : <=0.8. The reference r mitra was not used to int erpret this result as normal/abnormal . [facility] CenterUoyxecoQDIDNVIJTD3629-80-76 18:46:00 Test Item Value Reference Range Interpretation Comments Basophils (test code = 1.1 See_Comment [Aut omated message] The Basophils) system which ge nerated this result tra nsmitted reference range : <=1.0. The reference r mitra was not used to int erpret this result as normal/abnormal . [facility] CenterBhumodeZZXFPEDEPT4256-81-13 18:46:00 Test Item Value Reference Range Interpretation Comments Lymphocytes # (test code = Lymphocytes 1.5 1.0-5.5 #) [facility] CenterUkmvpzhNVGIMBGLOD5336-40-16 18:46:00 Test Item Value Reference Range Interpretation Comments Segs-Bands # (test code = Segs-Bands #) 2.9 1.5-8.1 [facility] CenterCmnqydaETTLZZQVFS3949-44-32 18:46:00 Test Item Value Reference Range Interpretation Comments Eosinophils # (test code 0.2 See_Comment [A utomated message] The = Eosinophils #) system whic h generated this result tra nsmitted reference range : <=0.5. The reference r mitra was not used to int erpret this result as normal/abnormal . [facility] CenterNnbndqlOESSIYYMND7386-20-57 18:46:00 Test Item Value Reference Range Interpretation Comments Basophils # (test code 0.1 See_Comment [Aut omated message] The = Basophils #) system which generated this result tra nsmitted reference range : <=0.2. The reference r mitra was not used to int erpret this result as normal/abnormal . [facility] CenterNxkerzsEMFCRRCEEP9420-77-36 18:46:00 Test Item Value Reference Range Interpretation Comments PT (test code = PT) 11.2 s 12.0-14.7 [facility] CenterWnxcojaEZDKGJOTWY1234-05-21 18:46:00 Test Item Value Reference Range Interpretation Comments INR (test code = INR) 0.82 0.85-1.17 [facility] CenterZwberrcXMJCGVIWCP9016-91-47 18:46:00 Test Item Value Reference Range Interpretation Comments PTT (test code = PTT) 28.6 s 22.9-35.8 [facility] CenterSataidwYQKIZEVEPX1780-13-56 18:46:00 Test Item Value Reference Range Interpretation Comments MPV (test code = MPV) 8.1 7.4-10.4 [facility] CenterZgrlpruZGLTGQGGHO1547-03-15 18:46:00 Test Item Value Reference Range Interpretation Comments Platelet (test code = Platelet) 301 133-450 [facility] CenterYgzfzwgKYAZQMUOWL9820-99-46 18:46:00 Test Item Value Reference Range Interpretation Comments RDW (test code = RDW) 14.5 11.5-14.5 [facility] CenterSlwrlxgXWINGLGSON5846-01-58 18:46:00 Test Item Value Reference Range Interpretation Comments RBC (test code = RBC) 4.84 4.70-6.10 [facility] CenterIpujoheIQWCGDGCJF2700-80-06 18:46:00 Test Item Value Reference Range Interpretation Comments Hgb (test code = Hgb) 14.4 14.0-18.0 [facility] CenterAqgowohYSYUXVMTZE7161-24-88 18:46:00 Test Item Value Reference Range Interpretation Comments WBC (test code = WBC) 5.2 3.7-10.4 [facility] CenterLiwjzblCCJZGCFZBT6812-12-62 18:46:00 Test Item Value Reference Range Interpretation Comments MCH (test code = MCH) 29.8 pg 27.0-31.0 [facility]JEAFIENVT9584-98-52 18:46:00 Test Item Value Reference Range Interpretation Comments MCV (test code = MCV) 92.0 80.0-94.0 [facility] CenterWheeeilNHYXLBVSJD1552-74-91 18:46:00 Test Item Value Reference Range Interpretation Comments Hct (test code = Hct) 44.5 42.0-54.0 [facility]XojpiheKYDAPAFAMI8900-17-43 18:46:00 Test Item Value Reference Range Interpretation Comments MCHC (test code = MCHC) 32.4 32.0-36.0 [facility] CenterFlokwgsATEOEOZCAB0553-47-46 18:46:00 Test Item Value Reference Range Interpretation Comments [place]-Hep C Ab (test Negative *NA*(07/22/14 code = [place]-Hep C 1:46 PM) Ab) [facility] AND [id number] 18:46:00 Test Item Value Reference Range Interpretation Comments UA Urobilinogen (test code = UA <=1.0 mg/dL 0.1-1.0 Urobilinogen) [facility] AND [id number] 18:46:00 Test Item Value Reference Range Interpretation Comments UA Sq Epi (test code = UA Sq Epi) None Seen [facility] AND [id number] 18:46:00 Test Item Value Reference Range Interpretation Comments UA Leuk Est (test Negative (07/22/14 1:46 code = UA Leuk Est) PM) [facility] AND [id number] 18:46:00 Test Item Value Reference Range Interpretation Comments UA Nitrite (test code Negative (07/22/14 1:46 = UA Nitrite) PM) [facility] AND [id number] 18:46:00 Test Item Value Reference Range Interpretation Comments UA Blood (test code = Negative (07/22/14 1:46 UA Blood) PM) [facility] AND [id number] 18:46:00 Test Item Value Reference Range Interpretation Comments UA Ketones (test code = UA Negative mg/dL Ketones) [facility] AND [id number] 18:46:00 Test Item Value Reference Range Interpretation Comments UA Bili (test code = Negative *NA*(07/22/14 UA Bili) 1:46 PM) [facility] AND [id number] 18:46:00 Test Item Value Reference Range Interpretation Comments UA Bacteria (test code = UA Occasional /HPF Bacteria) [facility] AND [id number] 18:46:00 Test Item Value Reference Range Interpretation Comments UA RBC (test code = no gt See_Comment [Automa elizabeth message] The UA RBC) system which ge nerated this result transmit elizabeth reference range : <=2. The reference range was not used to interpr et this result as margaret l/abnormal. [facility] AND [id number] 18:46:00 Test Item Value Reference Range Interpretation Comments UA WBC (test code = 1 See_Comment [Automa elizabeth message] The UA WBC) system which ge nerated this result transmit elizabeth reference range : <=5. The reference range was not used to interpr et this result as margaret l/abnormal. [facility] AND [id number] 18:46:00 Test Item Value Reference Range Interpretation Comments UA Glucose (test code = UA Glucose) 30 mg/dL [facility] AND [id number] 18:46:00 Test Item Value Reference Range Interpretation Comments UA Protein (test code = UA Negative mg/dL Protein) [facility] AND [id number] 18:46:00 Test Item Value Reference Range Interpretation Comments UA pH (test code = UA pH) 6.5 5.0-8.0 [facility] AND [id number] 18:46:00 Test Item Value Reference Range Interpretation Comments UA Turbidity (test code = Clear (07/22/14 1:46 UA Turbidity) PM) [facility] AND [id number] 18:46:00 Test Item Value Reference Range Interpretation Comments UA Spec Grav (test code = UA Spec Grav) 1.010 [facility] AND [id number] 18:46:00 Test Item Value Reference Range Interpretation Comments UA Color (test code = Light Yellow UA Color) *NA*(07/22/14 1:46 PM) [facility]2015-06-09 18:46:00 Test Item Value Reference Range Interpretation Comments Magnesium Lvl (test code = Magnesium 1.8 1.8-2.4 Lvl) [facility] HospitalAgghaucHGGULYVVAUAH6300-99-43 18:46:00 Test Item Value Reference Range Interpretation Comments AGAP (test code = AGAP) 13.2 10.0-20.0 [facility] HospitalJabphovRRSOFCACFSBP3416-31-79 18:46:00 Test Item Value Reference Range Interpretation Comments B/C Ratio (test code = B/C Ratio) 18 6-25 [facility] HospitalCujskolXOKZTYABSLNQ5669-29-21 18:46:00 Test Item Value Reference Range Interpretation Comments A/G Ratio (test code = A/G Ratio) 1.1 0.7-1.6 [facility] HospitalRszlxqdTKRATCKPNJBK2489-21-01 18:46:00 Test Item Value Reference Range Interpretation Comments Globulin (test code = Globulin) 3.3 2.0-4.0 [facility] HospitalXnrhvokLKAIBZZMJKGL7178-74-48 18:46:00 Test Item Value Reference Range Interpretation Comments eGFR (test code = eGFR) 99 [facility] HospitalTqpliigYJFMDQVUHLPG4797-78-83 18:46:00 Test Item Value Reference Range Interpretation Comments Calcium Lvl (test code = Calcium Lvl) 9.0 8.5-10.5 [facility] HospitalCevnqksVCVCDVBPPOFN0146-71-00 18:46:00 Test Item Value Reference Range Interpretation Comments Chloride Lvl (test code = Chloride Lvl) 106 95-109 [facility] HospitalIfdajbdNBNUAYLETEDS9165-95-84 18:46:00 Test Item Value Reference Range Interpretation Comments Creatinine Lvl (test code = Creatinine 0.9 0.5-1.4 Lvl) [facility] HospitalQbhsgskSSGWFHNAADTC9316-80-56 18:46:00 Test Item Value Reference Range Interpretation Comments Potassium Lvl (test code = Potassium 4.2 3.5-5.1 Lvl) [facility] HospitalGmokjpjZMHOUIAUYFVM7915-26-24 18:46:00 Test Item Value Reference Range Interpretation Comments Sodium Lvl (test code = Sodium Lvl) 139 135-145 [facility] HospitalFbxalkaOQHZKWAKSVGN8664-61-06 18:46:00 Test Item Value Reference Range Interpretation Comments CO2 (test code = CO2) 24 24-32 [facility] HospitalWfotrppQNARGLIORVVZ2210-73-55 18:46:00 Test Item Value Reference Range Interpretation Comments BUN (test code = BUN) 16 7-22 [facility] HospitalAwldnlhSLYZTIYJSDOK9674-71-10 18:46:00 Test Item Value Reference Range Interpretation Comments Glucose Lvl (test code = Glucose Lvl) 141 70-99 [facility] HospitalLfngpfhUTWIQLIKOAYO0135-13-24 18:46:00 Test Item Value Reference Range Interpretation Comments Albumin Lvl (test code = Albumin Lvl) 3.6 3.5-5.0 [facility] HospitalSpajnyzPTOCZRLLLHTR1630-84-38 18:46:00 Test Item Value Reference Range Interpretation Comments Alk Phos (test code = Alk Phos) 65 39-136 [facility] HospitalLwsmojdEECVJRAGYCTZ7628-70-67 18:46:00 Test Item Value Reference Range Interpretation Comments Bili Total (test code = Bili Total) 0.3 0.2-1.3 [facility] HospitalHoltlhkVUVQDMUVZMRO5570-32-36 18:46:00 Test Item Value Reference Range Interpretation Comments ALT (test code = ALT) 100 See_Comment [Auto mated message] The system which ge nerated this result transmit elizabeth reference range : <=65. The reference range was not used to interpr et this result as margaret l/abnormal. [facility] HospitalGuqbaymRYGQWQMMAJJX6370-52-42 18:46:00 Test Item Value Reference Range Interpretation Comments AST (test code = AST) 53 See_Comment [Auto mated message] The system which ge nerated this result transmit elizabeth reference range : <=37. The reference range was not used to interpr et this result as margaret l/abnormal. [facility] HospitalSgogaipAWCBKBDBSESS9560-04-42 18:46:00 Test Item Value Reference Range Interpretation Comments Total Protein (test code = Total 6.9 6.4-8.4 Protein) [facility] CenterZrhgzfiRVRNCOUUBV1070-99-54 18:46:00 Test Item Value Reference Range Interpretation Comments Eosinophils (test code = 4.2 See_Comment [A utomated message] The Eosinophils) system which ge nerated this result tra nsmitted reference range : <=4.0. The reference r mitra was not used to int erpret this result as normal/abnormal . [facility] CenterZzgydqaGWSWSQQSWG9157-25-71 18:46:00 Test Item Value Reference Range Interpretation Comments Segs (test code = Segs) 56.4 45.0-75.0 [facility] CenterZazsqahUUHGZDXJOV9596-88-21 18:46:00 Test Item Value Reference Range Interpretation Comments Monocytes (test code = Monocytes) 10.3 2.0-12.0 [facility] CenterEkaetodSDZVCEPAST6240-99-62 18:46:00 Test Item Value Reference Range Interpretation Comments Lymphocytes (test code = Lymphocytes) 28.0 20.0-40.0 [facility] CenterNwjkvwaUNOETEBXNH8233-51-30 18:46:00 Test Item Value Reference Range Interpretation Comments Monocytes # (test code 0.5 See_Comment [Aut omated message] The = Monocytes #) system which generated this result tra nsmitted reference range : <=0.8. The reference r mitra was not used to int erpret this result as normal/abnormal . [facility] CenterSmcbvnzTVPMYEKGAY4290-21-57 18:46:00 Test Item Value Reference Range Interpretation Comments Basophils (test code = 1.1 See_Comment [Aut omated message] The Basophils) system which ge nerated this result tra nsmitted reference range : <=1.0. The reference r mitra was not used to int erpret this result as normal/abnormal . [facility] CenterCplbjbdOJEKGOIDRU1621-25-55 18:46:00 Test Item Value Reference Range Interpretation Comments Lymphocytes # (test code = Lymphocytes 1.5 1.0-5.5 #) [facility] CenterWdrrsylPPJPYRYWXC0290-32-48 18:46:00 Test Item Value Reference Range Interpretation Comments Segs-Bands # (test code = Segs-Bands #) 2.9 1.5-8.1 [facility] CenterOeuqphxFJLVPJSOBL1540-16-32 18:46:00 Test Item Value Reference Range Interpretation Comments Eosinophils # (test code 0.2 See_Comment [A utomated message] The = Eosinophils #) system whic h generated this result tra nsmitted reference range : <=0.5. The reference r mitra was not used to int erpret this result as normal/abnormal . [facility] CenterNdrbareSIKWKDQRKA7329-78-08 18:46:00 Test Item Value Reference Range Interpretation Comments Basophils # (test code 0.1 See_Comment [Aut omated message] The = Basophils #) system which generated this result tra nsmitted reference range : <=0.2. The reference r mitra was not used to int erpret this result as normal/abnormal . [facility] CenterYhdzxvqNDPENFKHCU5347-34-73 18:46:00 Test Item Value Reference Range Interpretation Comments PT (test code = PT) 11.2 s 12.0-14.7 [facility] CenterPqyfwpyAIFINGDQXY1669-41-60 18:46:00 Test Item Value Reference Range Interpretation Comments INR (test code = INR) 0.82 0.85-1.17 [facility] CenterRfkqufdTPFOCIYPXO7175-07-34 18:46:00 Test Item Value Reference Range Interpretation Comments PTT (test code = PTT) 28.6 s 22.9-35.8 [facility] CenterQvsekfoLSBFKQUFYX3729-02-57 18:46:00 Test Item Value Reference Range Interpretation Comments MPV (test code = MPV) 8.1 7.4-10.4 [facility] CenterPefvzlqICIGFUNZFT7004-67-87 18:46:00 Test Item Value Reference Range Interpretation Comments Platelet (test code = Platelet) 301 133-450 [facility] CenterMwgrvmuHFJFKWUPDO7574-11-40 18:46:00 Test Item Value Reference Range Interpretation Comments RDW (test code = RDW) 14.5 11.5-14.5 [facility] CenterJcbfaocFXESGDBTTP4643-24-29 18:46:00 Test Item Value Reference Range Interpretation Comments RBC (test code = RBC) 4.84 4.70-6.10 [facility] CenterDbywrcpWMJESTYTOI9711-02-78 18:46:00 Test Item Value Reference Range Interpretation Comments Hgb (test code = Hgb) 14.4 14.0-18.0 [facility] CenterWgideccRWVYIFZVOL9301-08-24 18:46:00 Test Item Value Reference Range Interpretation Comments WBC (test code = WBC) 5.2 3.7-10.4 [facility] CenterHittfhsKLCLMTTUMK6511-54-51 18:46:00 Test Item Value Reference Range Interpretation Comments MCH (test code = MCH) 29.8 pg 27.0-31.0 [facility] CenterVswtundIJNCHUPCKV6223-35-08 18:46:00 Test Item Value Reference Range Interpretation Comments MCV (test code = MCV) 92.0 80.0-94.0 [facility] CenterBplmwwhWGEQLWNLQJ4720-71-99 18:46:00 Test Item Value Reference Range Interpretation Comments Hct (test code = Hct) 44.5 42.0-54.0 [facility] MtsenqaMBRYATYKWS7868-90-94 18:46:00 Test Item Value Reference Range Interpretation Comments MCHC (test code = MCHC) 32.4 32.0-36.0 [facility] FfqsjkpBNDOMMKCBS5262-69-36 18:46:00 Test Item Value Reference Range Interpretation Comments [place]-Hep C Ab (test Negative *NA*(07/22/14 code = [place]-Hep C 1:46 PM) Ab) [facility] AND [id number] 18:46:00 Test Item Value Reference Range Interpretation Comments UA Urobilinogen (test code = UA <=1.0 mg/dL 0.1-1.0 Urobilinogen) [facility] AND [id number] 18:46:00 Test Item Value Reference Range Interpretation Comments UA Sq Epi (test code = UA Sq Epi) None Seen [facility] AND [id number] 18:46:00 Test Item Value Reference Range Interpretation Comments UA Leuk Est (test Negative (07/22/14 1:46 code = UA Leuk Est) PM) [facility] AND [id number] 18:46:00 Test Item Value Reference Range Interpretation Comments UA Nitrite (test code Negative (07/22/14 1:46 = UA Nitrite) PM) [facility] AND [id number] 18:46:00 Test Item Value Reference Range Interpretation Comments UA Blood (test code = Negative (07/22/14 1:46 UA Blood) PM) [facility] [id number] 18:46:00 Test Item Value Reference Range Interpretation Comments UA Ketones (test code = UA Negative mg/dL Ketones) [facility] AND [id number] 18:46:00 Test Item Value Reference Range Interpretation Comments UA Bili (test code = Negative *NA*(07/22/14 UA Bili) 1:46 PM) [facility] AND [id number] 18:46:00 Test Item Value Reference Range Interpretation Comments UA Bacteria (test code = UA Occasional /HPF Bacteria) [facility] AND [id number] 18:46:00 Test Item Value Reference Range Interpretation Comments UA RBC (test code = no gt See_Comment [Automa elizabeth message] The UA RBC) system which ge nerated this result transmit elizabeth reference range : <=2. The reference range was not used to interpr et this result as margaret l/abnormal. [facility] AND [id number] 18:46:00 Test Item Value Reference Range Interpretation Comments UA WBC (test code = 1 See_Comment [Automa elizabeth message] The UA WBC) system which ge nerated this result transmit elizabeth reference range : <=5. The reference range was not used to interpr et this result as margaret l/abnormal. [facility] AND [id number] 18:46:00 Test Item Value Reference Range Interpretation Comments UA Glucose (test code = UA Glucose) 30 mg/dL [facility] AND [id number] 18:46:00 Test Item Value Reference Range Interpretation Comments UA Protein (test code = UA Negative mg/dL Protein) [facility] AND [id number] 18:46:00 Test Item Value Reference Range Interpretation Comments UA pH (test code = UA pH) 6.5 5.0-8.0 [facility] AND [id number] 18:46:00 Test Item Value Reference Range Interpretation Comments UA Turbidity (test code = Clear (07/22/14 1:46 UA Turbidity) PM) [facility] AND [id number] 18:46:00 Test Item Value Reference Range Interpretation Comments UA Spec Grav (test code = UA Spec Grav) 1.010 [facility] AND [id number] 18:46:00 Test Item Value Reference Range Interpretation Comments UA Color (test code = Light Yellow UA Color) *NA*(07/22/14 1:46 PM) [facility] [id number] 18:46:00 Test Item Value Reference Range Interpretation Comments Magnesium Lvl (test code = Magnesium 1.8 1.8-2.4 Lvl) [facility]TrsthvtKYKKZEUGCVEI2726-11-20 18:46:00 Test Item Value Reference Range Interpretation Comments AGAP (test code = AGAP) 13.2 10.0-20.0 [facility]rkhqaqPKUNNIFVLHLA5036-86-34 18:46:00 Test Item Value Reference Range Interpretation Comments B/C Ratio (test code = B/C Ratio) 18 6-25 [facility] HospitalJaetzbmHTCPQPDOTBGO0931-77-00 18:46:00 Test Item Value Reference Range Interpretation Comments A/G Ratio (test code = A/G Ratio) 1.1 0.7-1.6 [facility] HospitalCnhjmiqUTVLKSZNELKE2129-08-13 18:46:00 Test Item Value Reference Range Interpretation Comments Globulin (test code = Globulin) 3.3 2.0-4.0 [facility] HospitalGpzhfovTGYINVQGPETM0399-41-30 18:46:00 Test Item Value Reference Range Interpretation Comments eGFR (test code = eGFR) 99 [facility] HospitalDkulufwEYDQCVKVKGJP5400-83-10 18:46:00 Test Item Value Reference Range Interpretation Comments Calcium Lvl (test code = Calcium Lvl) 9.0 8.5-10.5 [facility] HospitalJdbtdnrHFITDXYCDOKP2478-70-85 18:46:00 Test Item Value Reference Range Interpretation Comments Chloride Lvl (test code = Chloride Lvl) 106 95-109 [facility] HospitalXnaiuthHDTWIJKJDGQE7178-01-37 18:46:00 Test Item Value Reference Range Interpretation Comments Creatinine Lvl (test code = Creatinine 0.9 0.5-1.4 Lvl) [facility] HospitalHphvbrdXSURLYIQWOXQ8635-73-92 18:46:00 Test Item Value Reference Range Interpretation Comments Potassium Lvl (test code = Potassium 4.2 3.5-5.1 Lvl) [facility] HospitalScrknjjUKEDJMWYIZGB1081-82-86 18:46:00 Test Item Value Reference Range Interpretation Comments Sodium Lvl (test code = Sodium Lvl) 139 135-145 [facility] HospitalSpwumcvGTDDUCZKMUHY0633-18-16 18:46:00 Test Item Value Reference Range Interpretation Comments CO2 (test code = CO2) 24 24-32 [facility] HospitalMehfkloOHUVYMMWRNWZ0834-39-18 18:46:00 Test Item Value Reference Range Interpretation Comments BUN (test code = BUN) 16 7-22 [facility] HospitalLwniukdDWWMNJWHRSRB7119-51-45 18:46:00 Test Item Value Reference Range Interpretation Comments Glucose Lvl (test code = Glucose Lvl) 141 70-99 [facility] HospitalZpmcnvwDLQVGYTXUSOR7419-97-41 18:46:00 Test Item Value Reference Range Interpretation Comments Albumin Lvl (test code = Albumin Lvl) 3.6 3.5-5.0 [facility] HospitalSeteoelTGSVLCSDCHVD6533-92-04 18:46:00 Test Item Value Reference Range Interpretation Comments Alk Phos (test code = Alk Phos) 65 39-136 [facility] HospitalJrqezmrXNEQATHABMGX7426-01-90 18:46:00 Test Item Value Reference Range Interpretation Comments Bili Total (test code = Bili Total) 0.3 0.2-1.3 [facility] HospitalDnqeuttAQVHPBBPUQRK9734-34-63 18:46:00 Test Item Value Reference Range Interpretation Comments ALT (test code = ALT) 100 See_Comment [Auto mated message] The system which ge nerated this result transmit elizabeth reference range : <=65. The reference range was not used to interpr et this result as margaret l/abnormal. [facility] HospitalOfedqwfYELGQBQBIOGJ1372-05-50 18:46:00 Test Item Value Reference Range Interpretation Comments AST (test code = AST) 53 See_Comment [Auto mated message] The system which ge nerated this result transmit elizabeth reference range : <=37. The reference range was not used to interpr et this result as margaret l/abnormal. [facility] HospitalElihlzaMBMCSXOXKSAT6775-04-91 18:46:00 Test Item Value Reference Range Interpretation Comments Total Protein (test code = Total 6.9 6.4-8.4 Protein) [facility] CenterEsxztdzOBYQWCPGMC8119-13-41 18:46:00 Test Item Value Reference Range Interpretation Comments Eosinophils (test code = 4.2 See_Comment [A utomated message] The Eosinophils) system which ge nerated this result tra nsmitted reference range : <=4.0. The reference r mitra was not used to int erpret this result as normal/abnormal . [facility] CenterYhqnvszKJDKIKMPEV7424-71-99 18:46:00 Test Item Value Reference Range Interpretation Comments Segs (test code = Segs) 56.4 45.0-75.0 [facility] CenterWtpfmeoJRLFZCGXGM9432-52-72 18:46:00 Test Item Value Reference Range Interpretation Comments Monocytes (test code = Monocytes) 10.3 2.0-12.0 [facility] CenterMyqwgraOOWIJXHAWT2773-97-80 18:46:00 Test Item Value Reference Range Interpretation Comments Lymphocytes (test code = Lymphocytes) 28.0 20.0-40.0 [facility] CenterEruqnjwYHDKPOHVDM4259-82-36 18:46:00 Test Item Value Reference Range Interpretation Comments Monocytes # (test code 0.5 See_Comment [Aut omated message] The = Monocytes #) system which generated this result tra nsmitted reference range : <=0.8. The reference r mitra was not used to int erpret this result as normal/abnormal . [facility] CenterZdegrqnZOLNCXPQLS8621-88-58 18:46:00 Test Item Value Reference Range Interpretation Comments Basophils (test code = 1.1 See_Comment [Aut omated message] The Basophils) system which ge nerated this result tra nsmitted reference range : <=1.0. The reference r mitra was not used to int erpret this result as normal/abnormal . [facility] CenterZsqeomhDEUGEAFSFY2384-66-98 18:46:00 Test Item Value Reference Range Interpretation Comments Lymphocytes # (test code = Lymphocytes 1.5 1.0-5.5 #) [facility] CenterAgcypcdGIIGRYARVB4387-26-89 18:46:00 Test Item Value Reference Range Interpretation Comments Segs-Bands # (test code = Segs-Bands #) 2.9 1.5-8.1 [facility]YvmwuqvXEWQXKHTRA4678-44-31 18:46:00 Test Item Value Reference Range Interpretation Comments Eosinophils # (test code 0.2 See_Comment [A utomated message] The = Eosinophils #) system whic h generated this result tra nsmitted reference range : <=0.5. The reference r mitra was not used to int erpret this result as normal/abnormal . [facility] CenterMqwyeamODVEHKTFBS6952-14-40 18:46:00 Test Item Value Reference Range Interpretation Comments Basophils # (test code 0.1 See_Comment [Aut omated message] The = Basophils #) system which generated this result tra nsmitted reference range : <=0.2. The reference r mitra was not used to int erpret this result as normal/abnormal . [facility] CenterHzpamvfGSHFGOXNEJ5075-17-72 18:46:00 Test Item Value Reference Range Interpretation Comments PT (test code = PT) 11.2 s 12.0-14.7 [facility] CenterQwjhkpyRCEBSWGGPN0836-77-54 18:46:00 Test Item Value Reference Range Interpretation Comments INR (test code = INR) 0.82 0.85-1.17 [facility] CenterHjoqftaQBNYBQGEZE7474-72-11 18:46:00 Test Item Value Reference Range Interpretation Comments PTT (test code = PTT) 28.6 s 22.9-35.8 [facility]IVREN8208[facility]-79 18:46:00 Test Item Value Reference Range Interpretation Comments MPV (test code = MPV) 8.1 7.4-10.4 [facility]LlxrfivWHWEIWOFKE7765-57-77 18:46:00 Test Item Value Reference Range Interpretation Comments Platelet (test code = Platelet) 301 133-450 [facility]WbcutbgLGYURWTPWW3812-09-04 18:46:00 Test Item Value Reference Range Interpretation Comments RDW (test code = RDW) 14.5 11.5-14.5 [facility]YlaxiaaZAXQWOVVWZ5501-33-79 18:46:00 Test Item Value Reference Range Interpretation Comments RBC (test code = RBC) 4.84 4.70-6.10 [facility]QwkqrpvNOCIBFJGDU4616-02-30 18:46:00 Test Item Value Reference Range Interpretation Comments Hgb (test code = Hgb) 14.4 14.0-18.0 [facility] SystemTdxtgidCREDVKTXJR0913-56-46 18:46:00 Test Item Value Reference Range Interpretation Comments WBC (test code = WBC) 5.2 3.7-10.4 [facility] SystemRrxzhtiMOGIAGHFVD8087-57-23 18:46:00 Test Item Value Reference Range Interpretation Comments MCH (test code = MCH) 29.8 pg 27.0-31.0 [facility]RaoqgtyFJEBQKTFPA8424-76-82 18:46:00 Test Item Value Reference Range Interpretation Comments MCV (test code = MCV) 92.0 80.0-94.0 [facility]RqnxoxsTFGADKXVVO2737-21-41 18:46:00 Test Item Value Reference Range Interpretation Comments Hct (test code = Hct) 44.5 42.0-54.0 [facility]DlchkvmYJZOGYUWSO5060-32-64 18:46:00 Test Item Value Reference Range Interpretation Comments MCHC (test code = MCHC) 32.4 32.0-36.0 [facility] CenterNzzzlnjJTALAWYVDZ8932-53-32 18:46:00 Test Item Value Reference Range Interpretation Comments [place]-Hep C Ab (test Negative *NA*(07/22/14 code = [place]-Hep C 1:46 PM) Ab) [facility] AND [id number] 18:46:00 Test Item Value Reference Range Interpretation Comments UA Urobilinogen (test code = UA <=1.0 mg/dL 0.1-1.0 Urobilinogen) [facility] AND [id number] 18:46:00 Test Item Value Reference Range Interpretation Comments UA Sq Epi (test code = UA Sq Epi) None Seen [facility] AND [id number] 18:46:00 Test Item Value Reference Range Interpretation Comments UA Leuk Est (test Negative (07/22/14 1:46 code = UA Leuk Est) PM) [facility] AND [id number] 18:46:00 Test Item Value Reference Range Interpretation Comments UA Nitrite (test code Negative (07/22/14 1:46 = UA Nitrite) PM) [facility] AND [id number] 18:46:00 Test Item Value Reference Range Interpretation Comments UA Blood (test code = Negative (07/22/14 1:46 UA Blood) PM) [facility] AND [id number] 18:46:00 Test Item Value Reference Range Interpretation Comments UA Ketones (test code = UA Negative mg/dL Ketones) [facility] AND [id number] 18:46:00 Test Item Value Reference Range Interpretation Comments UA Bili (test code = Negative *NA*(07/22/14 UA Bili) 1:46 PM) [facility] AND [id number] 18:46:00 Test Item Value Reference Range Interpretation Comments UA Bacteria (test code = UA Occasional /HPF Bacteria) [facility] AND [id number] 18:46:00 Test Item Value Reference Range Interpretation Comments UA RBC (test code = no gt See_Comment [Automa elizabeth message] The UA RBC) system which ge nerated this result transmit elizabeth reference range : <=2. The reference range was not used to interpr et this result as margaret l/abnormal. [facility] AND [id number] 18:46:00 Test Item Value Reference Range Interpretation Comments UA WBC (test code = 1 See_Comment [Automa elizabeth message] The UA WBC) system which ge nerated this result transmit elizabeth reference range : <=5. The reference range was not used to interpr et this result as margaret l/abnormal. [facility] AND [id number] 18:46:00 Test Item Value Reference Range Interpretation Comments UA Glucose (test code = UA Glucose) 30 mg/dL [facility] AND [id number] 18:46:00 Test Item Value Reference Range Interpretation Comments UA Protein (test code = UA Negative mg/dL Protein) [facility] AND [id number] 18:46:00 Test Item Value Reference Range Interpretation Comments UA pH (test code = UA pH) 6.5 5.0-8.0 [facility] AND [id number] 18:46:00 Test Item Value Reference Range Interpretation Comments UA Turbidity (test code = Clear (07/22/14 1:46 UA Turbidity) PM) [facility] AND [id number] 18:46:00 Test Item Value Reference Range Interpretation Comments UA Spec Grav (test code = UA Spec Grav) 1.010 [facility] AND [id number] 18:46:00 Test Item Value Reference Range Interpretation Comments UA Color (test code = Light Yellow UA Color) *NA*(07/22/14 1:46 PM) [facility] [id number] 18:46:00 Test Item Value Reference Range Interpretation Comments Magnesium Lvl (test code = Magnesium 1.8 1.8-2.4 Lvl) [facility] HospitalAkstgodEYFBUWWNOSTL7495-04-96 18:46:00 Test Item Value Reference Range Interpretation Comments AGAP (test code = AGAP) 13.2 10.0-20.0 [facility] HospitalBhugkioMQHSHFUWIEHA2474-44-20 18:46:00 Test Item Value Reference Range Interpretation Comments B/C Ratio (test code = B/C Ratio) 18 6-25 [facility] HospitalOymowsvEKGDUJPMLJXO9614-22-09 18:46:00 Test Item Value Reference Range Interpretation Comments A/G Ratio (test code = A/G Ratio) 1.1 0.7-1.6 [facility] HospitalQcdfglpOHANEEQBLQTY4728-44-10 18:46:00 Test Item Value Reference Range Interpretation Comments Globulin (test code = Globulin) 3.3 2.0-4.0 [facility] HospitalVvvfbeiCYBGKPLCPZCZ4327-55-40 18:46:00 Test Item Value Reference Range Interpretation Comments eGFR (test code = eGFR) 99 [facility] HospitalMcvxhhsPYBOPQZJBWYN7870-64-11 18:46:00 Test Item Value Reference Range Interpretation Comments Calcium Lvl (test code = Calcium Lvl) 9.0 8.5-10.5 [facility] HospitalObrthwdJVGEEOMBRVFS3117-47-28 18:46:00 Test Item Value Reference Range Interpretation Comments Chloride Lvl (test code = Chloride Lvl) 106 95-109 [facility] HospitalCelericMBQGIANIQATY4262-49-26 18:46:00 Test Item Value Reference Range Interpretation Comments Creatinine Lvl (test code = Creatinine 0.9 0.5-1.4 Lvl) [facility] HospitalTzzfhjhFXBLQCKELTZY2058-21-92 18:46:00 Test Item Value Reference Range Interpretation Comments Potassium Lvl (test code = Potassium 4.2 3.5-5.1 Lvl) [facility] HospitalNgvjerlEETQFZAGYBIC9261-32-41 18:46:00 Test Item Value Reference Range Interpretation Comments Sodium Lvl (test code = Sodium Lvl) 139 135-145 [facility] HospitalApbxubnGQREUQZFWKBH1451-11-77 18:46:00 Test Item Value Reference Range Interpretation Comments CO2 (test code = CO2) 24 24-32 [facility] HospitalMkywdamDEHFEYTWGMCQ4985-10-41 18:46:00 Test Item Value Reference Range Interpretation Comments BUN (test code = BUN) 16 7-22 [facility] HospitalMzhvgboNDEPGWEMVMHF6750-43-52 18:46:00 Test Item Value Reference Range Interpretation Comments Glucose Lvl (test code = Glucose Lvl) 141 70-99 [facility] HospitalSnsemwwLNQGGQGGYCSD5194-72-35 18:46:00 Test Item Value Reference Range Interpretation Comments Albumin Lvl (test code = Albumin Lvl) 3.6 3.5-5.0 [facility] HospitalVmaoamhHZOIFILTOSKG7008-94-53 18:46:00 Test Item Value Reference Range Interpretation Comments Alk Phos (test code = Alk Phos) 65 39-136 [facility] HospitalObafyjhPPYUGXHZQHUS3297-45-96 18:46:00 Test Item Value Reference Range Interpretation Comments Bili Total (test code = Bili Total) 0.3 0.2-1.3 [facility] HospitalZhgobxbKCDXCJIVGJSU6110-78-63 18:46:00 Test Item Value Reference Range Interpretation Comments ALT (test code = ALT) 100 See_Comment [Auto mated message] The system which ge nerated this result transmit elizabeth reference range : <=65. The reference range was not used to interpr et this result as margaret l/abnormal. [facility] HospitalXbpyeelLUKIHNSUGDEW4436-18-59 18:46:00 Test Item Value Reference Range Interpretation Comments AST (test code = AST) 53 See_Comment [Auto mated message] The system which ge nerated this result transmit elizabeth reference range : <=37. The reference range was not used to interpr et this result as margaret l/abnormal. [facility] HospitalQtclkqdENRNXVGFSJKH6941-26-76 18:46:00 Test Item Value Reference Range Interpretation Comments Total Protein (test code = Total 6.9 6.4-8.4 Protein) [facility] CenterPpqywskEEJXQLLWUG5410-95-25 18:46:00 Test Item Value Reference Range Interpretation Comments Eosinophils (test code = 4.2 See_Comment [A utomated message] The Eosinophils) system which ge nerated this result tra nsmitted reference range : <=4.0. The reference r mitra was not used to int erpret this result as normal/abnormal . [facility] CenterLcgijbfLDGVBBEYWV7252-38-02 18:46:00 Test Item Value Reference Range Interpretation Comments Segs (test code = Segs) 56.4 45.0-75.0 [facility] CenterWkbbmiuXGBXJHIBOI3489-13-05 18:46:00 Test Item Value Reference Range Interpretation Comments Monocytes (test code = Monocytes) 10.3 2.0-12.0 [facility] CenterPlyvvphPHVKUFFXEE3943-31-50 18:46:00 Test Item Value Reference Range Interpretation Comments Lymphocytes (test code = Lymphocytes) 28.0 20.0-40.0 [facility] CenterIfwlrlvKGUUYUVOEQ1504-05-47 18:46:00 Test Item Value Reference Range Interpretation Comments Monocytes # (test code 0.5 See_Comment [Aut omated message] The = Monocytes #) system which generated this result tra nsmitted reference range : <=0.8. The reference r mitra was not used to int erpret this result as normal/abnormal . [facility] CenterNlalzvbCIBQPXZGZU9789-51-97 18:46:00 Test Item Value Reference Range Interpretation Comments Basophils (test code = 1.1 See_Comment [Aut omated message] The Basophils) system which ge nerated this result tra nsmitted reference range : <=1.0. The reference r mitra was not used to int erpret this result as normal/abnormal . [facility] CenterOelbbybTIAGAELYZK0320-55-25 18:46:00 Test Item Value Reference Range Interpretation Comments Lymphocytes # (test code = Lymphocytes 1.5 1.0-5.5 #) [facility] CenterEheswaeHNWHGTADKH6061-24-17 18:46:00 Test Item Value Reference Range Interpretation Comments Segs-Bands # (test code = Segs-Bands #) 2.9 1.5-8.1 [facility] CenterXlfbrlfLGGKBEGWRT4439-02-57 18:46:00 Test Item Value Reference Range Interpretation Comments Eosinophils # (test code 0.2 See_Comment [A utomated message] The = Eosinophils #) system whic h generated this result tra nsmitted reference range : <=0.5. The reference r mitra was not used to int erpret this result as normal/abnormal . [facility] CenterVrnwycsJEDVIGQEXM1807-64-46 18:46:00 Test Item Value Reference Range Interpretation Comments Basophils # (test code 0.1 See_Comment [Aut omated message] The = Basophils #) system which generated this result tra nsmitted reference range : <=0.2. The reference r mitra was not used to int erpret this result as normal/abnormal . [facility] CenterRmwtxidXKEAFNMUMP4880-96-03 18:46:00 Test Item Value Reference Range Interpretation Comments PT (test code = PT) 11.2 s 12.0-14.7 [facility] CenterQlcbcftNQEGGCCZXB2944-10-47 18:46:00 Test Item Value Reference Range Interpretation Comments INR (test code = INR) 0.82 0.85-1.17 [facility] CenterGsyadujICVMAQMMAT3075-17-43 18:46:00 Test Item Value Reference Range Interpretation Comments PTT (test code = PTT) 28.6 s 22.9-35.8 [facility] CenterQhtisjqHIDYZUTMDJ6230-82-73 18:46:00 Test Item Value Reference Range Interpretation Comments MPV (test code = MPV) 8.1 7.4-10.4 [facility] CenterKmrlcdsNAAXMBDIVY6725-95-88 18:46:00 Test Item Value Reference Range Interpretation Comments Platelet (test code = Platelet) 301 133-450 [facility] CenterAzxnpgcMQPTIOLBUL8855-89-22 18:46:00 Test Item Value Reference Range Interpretation Comments RDW (test code = RDW) 14.5 11.5-14.5 [place] 305265-06-09 18:46:00 Test Item Value Reference Range Interpretation Comments RBC (test code = RBC) 4.84 4.70-6.10 [facility] CenterFkjlzqlTZVVZJQEVZ8906-90-58 18:46:00 Test Item Value Reference Range Interpretation Comments Hgb (test code = Hgb) 14.4 14.0-18.0 [facility] CenterWduhlwtCPYEHXDKZG9460-20-09 18:46:00 Test Item Value Reference Range Interpretation Comments WBC (test code = WBC) 5.2 3.7-10.4 [facility] CenterGpzxxesAEUJZKEHNW9297-45-10 18:46:00 Test Item Value Reference Range Interpretation Comments MCH (test code = MCH) 29.8 pg 27.0-31.0 [facility] CenterBlcpnbsALGFNDFCMI5718-65-73 18:46:00 Test Item Value Reference Range Interpretation Comments MCV (test code = MCV) 92.0 80.0-94.0 [facility] CenterFsjsmatSDJVNEHUKT7138-67-03 18:46:00 Test Item Value Reference Range Interpretation Comments Hct (test code = Hct) 44.5 42.0-54.0 [facility] CenterRtzikqqDDQSACMXSF7472-99-47 18:46:00 Test Item Value Reference Range Interpretation Comments MCHC (test code = MCHC) 32.4 32.0-36.0 [facility] CenterGvxwbiiIHXLXONJDX6883-85-58 18:46:00 Test Item Value Reference Range Interpretation Comments [place]-Hep C Ab (test Negative *NA*(07/22/14 code = [place]-Hep C 1:46 PM) Ab) [facility] AND [id number] 18:46:00 Test Item Value Reference Range Interpretation Comments UA Urobilinogen (test code = UA <=1.0 mg/dL 0.1-1.0 Urobilinogen) [facility] AND [id number] 18:46:00 Test Item Value Reference Range Interpretation Comments UA Sq Epi (test code = UA Sq Epi) None Seen [facility] AND [id number] 18:46:00 Test Item Value Reference Range Interpretation Comments UA Leuk Est (test Negative (07/22/14 1:46 code = UA Leuk Est) PM) [facility] AND [id number] 18:46:00 Test Item Value Reference Range Interpretation Comments UA Nitrite (test code Negative (07/22/14 1:46 = UA Nitrite) PM) [facility] AND [id number] 18:46:00 Test Item Value Reference Range Interpretation Comments UA Blood (test code = Negative (07/22/14 1:46 UA Blood) PM) [facility] AND [id number] 18:46:00 Test Item Value Reference Range Interpretation Comments UA Ketones (test code = UA Negative mg/dL Ketones) [facility] AND [id number] 18:46:00 Test Item Value Reference Range Interpretation Comments UA Bili (test code = Negative *NA*(07/22/14 UA Bili) 1:46 PM) [facility] AND [id number] 18:46:00 Test Item Value Reference Range Interpretation Comments UA Bacteria (test code = UA Occasional /HPF Bacteria) [facility] AND [id number] 18:46:00 Test Item Value Reference Range Interpretation Comments UA RBC (test code = no gt See_Comment [Automa elizabeth message] The UA RBC) system which ge nerated this result transmit elizabeth reference range : <=2. The reference range was not used to interpr et this result as margaret l/abnormal. [facility] AND [id number] 18:46:00 Test Item Value Reference Range Interpretation Comments UA WBC (test code = 1 See_Comment [Automa elizabeth message] The UA WBC) system which ge nerated this result transmit elizabeth reference range : <=5. The reference range was not used to interpr et this result as margaret l/abnormal. [facility] AND [id number] 18:46:00 Test Item Value Reference Range Interpretation Comments UA Glucose (test code = UA Glucose) 30 mg/dL [facility] AND [id number] 18:46:00 Test Item Value Reference Range Interpretation Comments UA Protein (test code = UA Negative mg/dL Protein) [facility] AND [id number] 18:46:00 Test Item Value Reference Range Interpretation Comments UA pH (test code = UA pH) 6.5 5.0-8.0 [facility] AND [id number] 18:46:00 Test Item Value Reference Range Interpretation Comments UA Turbidity (test code = Clear (07/22/14 1:46 UA Turbidity) PM) [facility] [id number] 18:46:00 Test Item Value Reference Range Interpretation Comments UA Spec Grav (test code = UA Spec Grav) 1.010 [facility] [id number] 18:46:00 Test Item Value Reference Range Interpretation Comments UA Color (test code = Light Yellow UA Color) *NA*(07/22/14 1:46 PM) [facility] YHNFO1465-18-09 18:46:00 Test Item Value Reference Range Interpretation Comments Magnesium Lvl (test code = Magnesium 1.8 1.8-2.4 Lvl) [facility]dha[facility]JFHBHYEBEZB7719-57-37 18:46:00 Test Item Value Reference Range Interpretation Comments AGAP (test code = AGAP) 13.2 10.0-20.0 [facility] HospitalUaizydoNSOLJZZXTRDC2372-08-48 18:46:00 Test Item Value Reference Range Interpretation Comments B/C Ratio (test code = B/C Ratio) 18 6-25 [facility] HospitalIyplxihAFWXYVCEPBFV1149-04-06 18:46:00 Test Item Value Reference Range Interpretation Comments A/G Ratio (test code = A/G Ratio) 1.1 0.7-1.6 [facility]zwdcgtJOHEGCMDJYRH3447-[facility] 18:46:00 Test Item Value Reference Range Interpretation Comments Globulin (test code = Globulin) 3.3 2.0-4.0 [facility]JqpqgaoPQCQFGMFUDZM2409-48-66 18:46:00 Test Item Value Reference Range Interpretation Comments eGFR (test code = eGFR) 99 [facility] HospitalUojoqraDYHECNHSSIVS3508-30-06 18:46:00 Test Item Value Reference Range Interpretation Comments Calcium Lvl (test code = Calcium Lvl) 9.0 8.5-10.5 [facility]WwjmnzuMKNBULUWPUMF7903-23-92 18:46:00 Test Item Value Reference Range Interpretation Comments Chloride Lvl (test code = Chloride Lvl) 106 95-109 [facility] HospitalCuqrsylDEYFZHHHBHCJ0751-24-35 18:46:00 Test Item Value Reference Range Interpretation Comments Creatinine Lvl (test code = Creatinine 0.9 0.5-1.4 Lvl) [facility] HospitalMilsrqmFTBEXRSCSMBX4319-07-90 18:46:00 Test Item Value Reference Range Interpretation Comments Potassium Lvl (test code = Potassium 4.2 3.5-5.1 Lvl) [facility] HospitalAqufiweZUTMQQPIFAEX3246-37-18 18:46:00 Test Item Value Reference Range Interpretation Comments Sodium Lvl (test code = Sodium Lvl) 139 135-145 [facility] HospitalImpcsyzKCVWJCXPOWJH3898-29-00 18:46:00 Test Item Value Reference Range Interpretation Comments CO2 (test code = CO2) 24 24-32 [facility] HospitalZyxirthQWKTWYHXYTRE8555-43-19 18:46:00 Test Item Value Reference Range Interpretation Comments BUN (test code = BUN) 16 7-22 [facility] HospitalUvryqoqLYXCMJOFQCBE8185-46-69 18:46:00 Test Item Value Reference Range Interpretation Comments Glucose Lvl (test code = Glucose Lvl) 141 70-99 [facility] HospitalAvajbcwDDREYKDFZSFT5712-95-19 18:46:00 Test Item Value Reference Range Interpretation Comments Albumin Lvl (test code = Albumin Lvl) 3.6 3.5-5.0 [facility] HospitalVyupdsrFBVWOYYBXBYB8690-24-15 18:46:00 Test Item Value Reference Range Interpretation Comments Alk Phos (test code = Alk Phos) 65 39-136 [facility] HospitalEfgzueuSFXXMBCWZIPY7630-08-36 18:46:00 Test Item Value Reference Range Interpretation Comments Bili Total (test code = Bili Total) 0.3 0.2-1.3 [facility] HospitalMzelxmeFFQMVYRKCIYG0301-03-84 18:46:00 Test Item Value Reference Range Interpretation Comments ALT (test code = ALT) 100 See_Comment [Auto mated message] The system which ge nerated this result transmit elizabeth reference range : <=65. The reference range was not used to interpr et this result as margaret l/abnormal. [facility] HospitalMttrizmUCBIKRUINGDT1638-43-62 18:46:00 Test Item Value Reference Range Interpretation Comments AST (test code = AST) 53 See_Comment [Auto mated message] The system which ge nerated this result transmit elizabeth reference range : <=37. The reference range was not used to interpr et this result as margaret l/abnormal. [facility] HospitalQuxdenlGPBZSLZCCFPU7832-65-98 18:46:00 Test Item Value Reference Range Interpretation Comments Total Protein (test code = Total 6.9 6.4-8.4 Protein) [facility] CenterOwzdlflWVWKOJLLBR0762-54-90 18:46:00 Test Item Value Reference Range Interpretation Comments Eosinophils (test code = 4.2 See_Comment [A utomated message] The Eosinophils) system which ge nerated this result tra nsmitted reference range : <=4.0. The reference r mitra was not used to int erpret this result as normal/abnormal . [facility] CenterKpdyjmmQLSFBEXNHJ9854-39-95 18:46:00 Test Item Value Reference Range Interpretation Comments Segs (test code = Segs) 56.4 45.0-75.0 [facility] CenterJcydetqNOXCAIIMHM4729-56-01 18:46:00 Test Item Value Reference Range Interpretation Comments Monocytes (test code = Monocytes) 10.3 2.0-12.0 [facility] CenterMxhryehDAKJQRZQHF4581-13-90 18:46:00 Test Item Value Reference Range Interpretation Comments Lymphocytes (test code = Lymphocytes) 28.0 20.0-40.0 [facility] CenterZglwnnvYSYSKGLYND4282-68-01 18:46:00 Test Item Value Reference Range Interpretation Comments Monocytes # (test code 0.5 See_Comment [Aut omated message] The = Monocytes #) system which generated this result tra nsmitted reference range : <=0.8. The reference r mitra was not used to int erpret this result as normal/abnormal . [facility] CenterCeoyeqbCMSVJKXKLW1514-99-05 18:46:00 Test Item Value Reference Range Interpretation Comments Basophils (test code = 1.1 See_Comment [Aut omated message] The Basophils) system which ge nerated this result tra nsmitted reference range : <=1.0. The reference r mitra was not used to int erpret this result as normal/abnormal . [facility] CenterFwogovcGFFMEDHSNU0464-30-58 18:46:00 Test Item Value Reference Range Interpretation Comments Lymphocytes # (test code = Lymphocytes 1.5 1.0-5.5 #) [facility] CenterPcfkxutTPRMSFOUPV0088-84-48 18:46:00 Test Item Value Reference Range Interpretation Comments Segs-Bands # (test code = Segs-Bands #) 2.9 1.5-8.1 [facility] CenterKmpcjcrEIACHLGUHD4442-95-01 18:46:00 Test Item Value Reference Range Interpretation Comments Eosinophils # (test code 0.2 See_Comment [A utomated message] The = Eosinophils #) system whic h generated this result tra nsmitted reference range : <=0.5. The reference r mitra was not used to int erpret this result as normal/abnormal . [facility] Cent[id number] 18:46:00 Test Item Value Reference Range Interpretation Comments Basophils # (test code 0.1 See_Comment [Aut omated message] The = Basophils #) system which generated this result tra nsmitted reference range : <=0.2. The reference r mitra was not used to int erpret this result as normal/abnormal . [facility] CenterRjnzlkcLTUYPGDFOA9074-33-62 18:46:00 Test Item Value Reference Range Interpretation Comments PT (test code = PT) 11.2 s 12.0-14.7 [facility] CenterJaepawqIZKEKXPIID1300-16-25 18:46:00 Test Item Value Reference Range Interpretation Comments INR (test code = INR) 0.82 0.85-1.17 [facility] CenterSrzeshjSCXDTURFXJ9021-59-53 18:46:00 Test Item Value Reference Range Interpretation Comments PTT (test code = PTT) 28.6 s 22.9-35.8 [facility] CenterCymruufUUDRFGVOSF9081-38-00 18:46:00 Test Item Value Reference Range Interpretation Comments MPV (test code = MPV) 8.1 7.4-10.4 [facility] CenterWdetlvnRYSMTIQMOS7491-03-62 18:46:00 Test Item Value Reference Range Interpretation Comments Platelet (test code = Platelet) 301 133-450 [facility] CenterCnzfhffXRELDUBEGL6242-32-95 18:46:00 Test Item Value Reference Range Interpretation Comments RDW (test code = RDW) 14.5 11.5-14.5 [facility] CenterNajvjfnLBSHIGEKAD5840-46-33 18:46:00 Test Item Value Reference Range Interpretation Comments RBC (test code = RBC) 4.84 4.70-6.10 [facility] CenterYwdknvrPTEWILZDXM4878-75-81 18:46:00 Test Item Value Reference Range Interpretation Comments Hgb (test code = Hgb) 14.4 14.0-18.0 [facility] CenterDsgnfsxEKFFSNSUCZ9750-76-53 18:46:00 Test Item Value Reference Range Interpretation Comments WBC (test code = WBC) 5.2 3.7-10.4 [facility] CenterOdaaechIFQSYIHJQP7652-72-39 18:46:00 Test Item Value Reference Range Interpretation Comments MCH (test code = MCH) 29.8 pg 27.0-31.0 [facility] ZvtwwriNPDJDWEFCV0958-28-49 18:46:00 Test Item Value Reference Range Interpretation Comments MCV (test code = MCV) 92.0 80.0-94.0 [facility] LvqslfbYVDQOWSSNM9767-58-64 18:46:00 Test Item Value Reference Range Interpretation Comments Hct (test code = Hct) 44.5 42.0-54.0 [facility] CenterSvpguzxAIXPAWACYN2194-40-68 18:46:00 Test Item Value Reference Range Interpretation Comments MCHC (test code = MCHC) 32.4 32.0-36.0 [facility] UhmddpbWMBAFLSOGD9020-04-37 18:46:00 Test Item Value Reference Range Interpretation Comments [place]-Hep C Ab (test Negative *NA*(07/22/14 code = [place]-Hep C 1:46 PM) Ab) [facility] AND [id number] 18:46:00 Test Item Value Reference Range Interpretation Comments UA Urobilinogen (test code = UA <=1.0 mg/dL 0.1-1.0 Urobilinogen) [facility] AND [id number] 18:46:00 Test Item Value Reference Range Interpretation Comments UA Sq Epi (test code = UA Sq Epi) None Seen [facility] AND [id number] 18:46:00 Test Item Value Reference Range Interpretation Comments UA Leuk Est (test Negative (07/22/14 1:46 code = UA Leuk Est) PM) [facility] AND [id number] 18:46:00 Test Item Value Reference Range Interpretation Comments UA Nitrite (test code Negative (07/22/14 1:46 = UA Nitrite) PM) [facility] AND [id number] 18:46:00 Test Item Value Reference Range Interpretation Comments UA Blood (test code = Negative (07/22/14 1:46 UA Blood) PM) [facility] AND [id number] 18:46:00 Test Item Value Reference Range Interpretation Comments UA Ketones (test code = UA Negative mg/dL Ketones) [facility] AND [id number] 18:46:00 Test Item Value Reference Range Interpretation Comments UA Bili (test code = Negative *NA*(07/22/14 UA Bili) 1:46 PM) [facility] [id number] 18:46:00 Test Item Value Reference Range Interpretation Comments UA Bacteria (test code = UA Occasional /HPF Bacteria) [facility] [id number] 18:46:00 Test Item Value Reference Range Interpretation Comments UA RBC (test code = no gt See_Comment [Automa elizabeth message] The UA RBC) system which ge nerated this result transmit elizabeth reference range : <=2. The reference range was not used to interpr et this result as margaret l/abnormal. [facility] [id number] 18:46:00 Test Item Value Reference Range Interpretation Comments UA WBC (test code = 1 See_Comment [Automa elizabeth message] The UA WBC) system which ge nerated this result transmit elizabeth reference range : <=5. The reference range was not used to interpr et this result as margaret l/abnormal. [facility] AND [id number] 18:46:00 Test Item Value Reference Range Interpretation Comments UA Glucose (test code = UA Glucose) 30 mg/dL [facility] [id number] 18:46:00 Test Item Value Reference Range Interpretation Comments UA Protein (test code = UA Negative mg/dL Protein) [facility] [id number] 18:46:00 Test Item Value Reference Range Interpretation Comments UA pH (test code = UA pH) 6.5 5.0-8.0 [facility] AND [id number] 18:46:00 Test Item Value Reference Range Interpretation Comments UA Turbidity (test code = Clear (07/22/14 1:46 UA Turbidity) PM) [facility] [id number] 18:46:00 Test Item Value Reference Range Interpretation Comments UA Spec Grav (test code = UA Spec Grav) 1.010 [facility] [id number] 18:46:00 Test Item Value Reference Range Interpretation Comments UA Color (test code = Light Yellow UA Color) *NA*(07/22/14 1:46 PM) [facility] [id number] 18:46:00 Test Item Value Reference Range Interpretation Comments Magnesium Lvl (test code = Magnesium 1.8 1.8-2.4 Lvl) [facility] HospitalQijyrpdWDQTJMZEVTSZ0925-86-41 18:46:00 Test Item Value Reference Range Interpretation Comments AGAP (test code = AGAP) 13.2 10.0-20.0 [facility] HospitalUwecosaUKEQNKLRSBRT5031-68-93 18:46:00 Test Item Value Reference Range Interpretation Comments B/C Ratio (test code = B/C Ratio) 18 6-25 [facility] HospitalYohttknJHQRKBOTMHRQ3071-80-53 18:46:00 Test Item Value Reference Range Interpretation Comments A/G Ratio (test code = A/G Ratio) 1.1 0.7-1.6 [facility] HospitalYkhyeynPTLDRRJOIXSG6214-38-47 18:46:00 Test Item Value Reference Range Interpretation Comments Globulin (test code = Globulin) 3.3 2.0-4.0 [facility] HospitalRhfqldkMDZLWYGDPSUP1645-94-66 18:46:00 Test Item Value Reference Range Interpretation Comments eGFR (test code = eGFR) 99 [facility] HospitalRhmjhngAAFAZBFFUQMF9286-39-22 18:46:00 Test Item Value Reference Range Interpretation Comments Calcium Lvl (test code = Calcium Lvl) 9.0 8.5-10.5 [facility] HospitalYxjiglaMHXAKRDSOZSZ2739-70-94 18:46:00 Test Item Value Reference Range Interpretation Comments Chloride Lvl (test code = Chloride Lvl) 106 95-109 [facility] HospitalFigdshgRIMBIVZYCXDC3002-74-45 18:46:00 Test Item Value Reference Range Interpretation Comments Creatinine Lvl (test code = Creatinine 0.9 0.5-1.4 Lvl) [facility] HospitalJajrasyZQLOOBCHGXET9165-08-52 18:46:00 Test Item Value Reference Range Interpretation Comments Potassium Lvl (test code = Potassium 4.2 3.5-5.1 Lvl) [facility] HospitalLwzsqxbVZOVHDZDAXGQ7708-39-91 18:46:00 Test Item Value Reference Range Interpretation Comments Sodium Lvl (test code = Sodium Lvl) 139 135-145 [facility] HospitalBuyyzwbLTUFITOCRYFA5683-43-77 18:46:00 Test Item Value Reference Range Interpretation Comments CO2 (test code = CO2) 24 24-32 [facility] HospitalOarfuruZGUQCEODJILZ1046-65-92 18:46:00 Test Item Value Reference Range Interpretation Comments BUN (test code = BUN) 16 7-22 [facility] HospitalQkjhuppDOBIBLRJRCJB8989-21-09 18:46:00 Test Item Value Reference Range Interpretation Comments Glucose Lvl (test code = Glucose Lvl) 141 70-99 [facility] HospitalLrcpdnxKLGUXDWJHEKN3995-58-56 18:46:00 Test Item Value Reference Range Interpretation Comments Albumin Lvl (test code = Albumin Lvl) 3.6 3.5-5.0 [facility] HospitalZiplgkoTEKEAANFBESR4672-54-82 18:46:00 Test Item Value Reference Range Interpretation Comments Alk Phos (test code = Alk Phos) 65 39-136 [facility] HospitalHyqgivrFSPGIGKZTUKF8601-38-09 18:46:00 Test Item Value Reference Range Interpretation Comments Bili Total (test code = Bili Total) 0.3 0.2-1.3 [facility] HospitalSddlwkuIOGXVLSBERMH3765-49-94 18:46:00 Test Item Value Reference Range Interpretation Comments ALT (test code = ALT) 100 See_Comment [Auto mated message] The system which ge nerated this result transmit elizabeth reference range : <=65. The reference range was not used to interpr et this result as margaret l/abnormal. [facility] HospitalVgpvqmyNKALCSFQZDRQ2627-79-59 18:46:00 Test Item Value Reference Range Interpretation Comments AST (test code = AST) 53 See_Comment [Auto mated message] The system which ge nerated this result transmit elizabeth reference range : <=37. The reference range was not used to interpr et this result as margaret l/abnormal. [facility] HospitalPnqhmahRMTBAOCHXKNL0552-43-92 18:46:00 Test Item Value Reference Range Interpretation Comments Total Protein (test code = Total 6.9 6.4-8.4 Protein) [facility] CenterEexqfqlYENIWTRNYA6118-03-12 18:46:00 Test Item Value Reference Range Interpretation Comments Eosinophils (test code = 4.2 See_Comment [A utomated message] The Eosinophils) system which ge nerated this result tra nsmitted reference range : <=4.0. The reference r mitra was not used to int erpret this result as normal/abnormal . [facility] CenterShmtqdcASGEZBBQXK4616-43-80 18:46:00 Test Item Value Reference Range Interpretation Comments Segs (test code = Segs) 56.4 45.0-75.0 [facility] CenterDgoevyxJNAZNYGECR6302-19-86 18:46:00 Test Item Value Reference Range Interpretation Comments Monocytes (test code = Monocytes) 10.3 2.0-12.0 [facility] CenterBuofqceROSEBNYBYZ0026-98-85 18:46:00 Test Item Value Reference Range Interpretation Comments Lymphocytes (test code = Lymphocytes) 28.0 20.0-40.0 [facility] CenterCkzpwvoFALYPUHTCW1166-05-66 18:46:00 Test Item Value Reference Range Interpretation Comments Monocytes # (test code 0.5 See_Comment [Aut omated message] The = Monocytes #) system which generated this result tra nsmitted reference range : <=0.8. The reference r mitra was not used to int erpret this result as normal/abnormal . [facility] CenterKkkiqdnKCPNWPOPMG5047-77-64 18:46:00 Test Item Value Reference Range Interpretation Comments Basophils (test code = 1.1 See_Comment [Aut omated message] The Basophils) system which ge nerated this result tra nsmitted reference range : <=1.0. The reference r mitra was not used to int erpret this result as normal/abnormal . [facility] CenterVyvkbwoYHUDJUQASQ7144-20-03 18:46:00 Test Item Value Reference Range Interpretation Comments Lymphocytes # (test code = Lymphocytes 1.5 1.0-5.5 #) [facility] CenterRdmwrhxOPOSQUSVQA0843-18-19 18:46:00 Test Item Value Reference Range Interpretation Comments Segs-Bands # (test code = Segs-Bands #) 2.9 1.5-8.1 [facility] CenterJatbfqwIOSQWHPVSG5427-73-66 18:46:00 Test Item Value Reference Range Interpretation Comments Eosinophils # (test code 0.2 See_Comment [A utomated message] The = Eosinophils #) system whic h generated this result tra nsmitted reference range : <=0.5. The reference r mitra was not used to int erpret this result as normal/abnormal . [facility] CenterGvdemguPEIHZYSJVZ8779-50-12 18:46:00 Test Item Value Reference Range Interpretation Comments Basophils # (test code 0.1 See_Comment [Aut omated message] The = Basophils #) system which generated this result tra nsmitted reference range : <=0.2. The reference r mitra was not used to int erpret this result as normal/abnormal . [facility] CenterRrbcukrJQSIDTBIVJ6941-84-93 18:46:00 Test Item Value Reference Range Interpretation Comments PT (test code = PT) 11.2 s 12.0-14.7 [facility] CenterBnfhxoaGCHAUTQJVG0596-10-20 18:46:00 Test Item Value Reference Range Interpretation Comments INR (test code = INR) 0.82 0.85-1.17 [facility] CenterHlzkbrwQAUUCZAMHQ3660-95-10 18:46:00 Test Item Value Reference Range Interpretation Comments PTT (test code = PTT) 28.6 s 22.9-35.8 [facility] CenterSllcdnxULKIQTUZIT0072-57-41 18:46:00 Test Item Value Reference Range Interpretation Comments MPV (test code = MPV) 8.1 7.4-10.4 [facility] CenterKgmnjkpKVVZAWJXXC4015-19-04 18:46:00 Test Item Value Reference Range Interpretation Comments Platelet (test code = Platelet) 301 133-450 [facility] CenterVuuinycCGBOIJNFKM9118-93-28 18:46:00 Test Item Value Reference Range Interpretation Comments RDW (test code = RDW) 14.5 11.5-14.5 [facility] CenterUqdngslTMFVRVXKHT5085-75-10 18:46:00 Test Item Value Reference Range Interpretation Comments RBC (test code = RBC) 4.84 4.70-6.10 [facility] CenterApixqefABSDKMAZYF6991-99-41 18:46:00 Test Item Value Reference Range Interpretation Comments Hgb (test code = Hgb) 14.4 14.0-18.0 [facility] CenterSkkwttlVCGENKOAVI0238-52-01 18:46:00 Test Item Value Reference Range Interpretation Comments WBC (test code = WBC) 5.2 3.7-10.4 [facility] CenterEqfhpmiLQUUNTYJPJ4834-66-34 18:46:00 Test Item Value Reference Range Interpretation Comments MCH (test code = MCH) 29.8 pg 27.0-31.0 [facility] CenterJnahxqmCTVPHOBFXM1066-55-20 18:46:00 Test Item Value Reference Range Interpretation Comments MCV (test code = MCV) 92.0 80.0-94.0 [facility] CenterKvncyleAWMTOEKNFR5096-52-23 18:46:00 Test Item Value Reference Range Interpretation Comments Hct (test code = Hct) 44.5 42.0-54.0 [facility] CenterOgrbxbhFFVATIAAPU5736-81-05 18:46:00 Test Item Value Reference Range Interpretation Comments MCHC (test code = MCHC) 32.4 32.0-36.0 [facility] CenterGozqnihFDMCFVHLWD1367-79-37 18:46:00 Test Item Value Reference Range Interpretation Comments [place]-Hep C Ab (test Negative *NA*(07/22/14 code = [place]-Hep C 1:46 PM) Ab) [facility] AND [id number] 18:46:00 Test Item Value Reference Range Interpretation Comments UA Urobilinogen (test code = UA <=1.0 mg/dL 0.1-1.0 Urobilinogen) [facility] AND [id number] 18:46:00 Test Item Value Reference Range Interpretation Comments UA Sq Epi (test code = UA Sq Epi) None Seen [facility] AND [id number] 18:46:00 Test Item Value Reference Range Interpretation Comments UA Leuk Est (test Negative (07/22/14 1:46 code = UA Leuk Est) PM) [facility] AND [id number] 18:46:00 Test Item Value Reference Range Interpretation Comments UA Nitrite (test code Negative (07/22/14 1:46 = UA Nitrite) PM) [facility] AND [id number] 18:46:00 Test Item Value Reference Range Interpretation Comments UA Blood (test code = Negative (07/22/14 1:46 UA Blood) PM) [facility] AND [id number] 18:46:00 Test Item Value Reference Range Interpretation Comments UA Ketones (test code = UA Negative mg/dL Ketones) [facility] AND [id number] 18:46:00 Test Item Value Reference Range Interpretation Comments UA Bili (test code = Negative *NA*(07/22/14 UA Bili) 1:46 PM) [facility] AND [id number] 18:46:00 Test Item Value Reference Range Interpretation Comments UA Bacteria (test code = UA Occasional /HPF Bacteria) [facility] AND [id number] 18:46:00 Test Item Value Reference Range Interpretation Comments UA RBC (test code = no gt See_Comment [Automa elizabeth message] The UA RBC) system which ge nerated this result transmit elizabeth reference range : <=2. The reference range was not used to interpr et this result as margaret l/abnormal. [facility] AND [id number] 18:46:00 Test Item Value Reference Range Interpretation Comments UA WBC (test code = 1 See_Comment [Automa elizabeth message] The UA WBC) system which ge nerated this result transmit elizabeth reference range : <=5. The reference range was not used to interpr et this result as margaret l/abnormal. [facility] AND [id number] 18:46:00 Test Item Value Reference Range Interpretation Comments UA Glucose (test code = UA Glucose) 30 mg/dL [facility] AND [id number] 18:46:00 Test Item Value Reference Range Interpretation Comments UA Protein (test code = UA Negative mg/dL Protein) [facility] AND [id number] 18:46:00 Test Item Value Reference Range Interpretation Comments UA pH (test code = UA pH) 6.5 5.0-8.0 [facility] AND [id number] 18:46:00 Test Item Value Reference Range Interpretation Comments UA Turbidity (test code = Clear (07/22/14 1:46 UA Turbidity) PM) [facility] AND [id number] 18:46:00 Test Item Value Reference Range Interpretation Comments UA Spec Grav (test code = UA Spec Grav) 1.010 [facility] AND [id number] 18:46:00 Test Item Value Reference Range Interpretation Comments UA Color (test code = Light Yellow UA Color) *NA*(07/22/14 1:46 PM) [facility] [id number] 18:46:00 Test Item Value Reference Range Interpretation Comments Magnesium Lvl (test code = Magnesium 1.8 1.8-2.4 Lvl) [facility]FvoajhhIOTFJOCUYNOM7196-89-75 18:46:00 Test Item Value Reference Range Interpretation Comments AGAP (test code = AGAP) 13.2 10.0-20.0 [facility]KuippkgKXJQJUYXJJEK1453-92-64 18:46:00 Test Item Value Reference Range Interpretation Comments B/C Ratio (test code = B/C Ratio) 18 6-25 [facility] HospitalMjcrnipEPLYSPCPIFUG8386-47-66 18:46:00 Test Item Value Reference Range Interpretation Comments A/G Ratio (test code = A/G Ratio) 1.1 0.7-1.6 [facility] HospitalQcsqiibKHCIAEDAUFOD5225-11-08 18:46:00 Test Item Value Reference Range Interpretation Comments Globulin (test code = Globulin) 3.3 2.0-4.0 [facility] HospitalTwmsakdPHWWHOKXFJPJ3503-61-35 18:46:00 Test Item Value Reference Range Interpretation Comments eGFR (test code = eGFR) 99 [facility] HospitalEwbibkxXSBKPPPBHPLU5184-75-49 18:46:00 Test Item Value Reference Range Interpretation Comments Calcium Lvl (test code = Calcium Lvl) 9.0 8.5-10.5 [facility] HospitalAkvhfbbGNLMYPJKIHBQ0257-76-46 18:46:00 Test Item Value Reference Range Interpretation Comments Chloride Lvl (test code = Chloride Lvl) 106 95-109 [facility] HospitalUqxxkngVQCCGMYQGJEK2302-36-71 18:46:00 Test Item Value Reference Range Interpretation Comments Creatinine Lvl (test code = Creatinine 0.9 0.5-1.4 Lvl) [facility] HospitalOfqdsjrZPGENMZGYEBL6411-11-31 18:46:00 Test Item Value Reference Range Interpretation Comments Potassium Lvl (test code = Potassium 4.2 3.5-5.1 Lvl) [facility] HospitalWqhwmrtBJHAVMQFJBJR2793-66-84 18:46:00 Test Item Value Reference Range Interpretation Comments Sodium Lvl (test code = Sodium Lvl) 139 135-145 [facility] HospitalCzkeaqaVLVDMJTNTAGI1225-68-03 18:46:00 Test Item Value Reference Range Interpretation Comments CO2 (test code = CO2) 24 24-32 [facility] HospitalAoyviwaPEGTMTVEDQMU2097-60-01 18:46:00 Test Item Value Reference Range Interpretation Comments BUN (test code = BUN) 16 7-22 [facility] HospitalKlwvwltRDIEBCWTEWJQ9516-91-54 18:46:00 Test Item Value Reference Range Interpretation Comments Glucose Lvl (test code = Glucose Lvl) 141 70-99 [facility] HospitalIxakxyxYQTJNZQYODAH9163-03-20 18:46:00 Test Item Value Reference Range Interpretation Comments Albumin Lvl (test code = Albumin Lvl) 3.6 3.5-5.0 [facility] HospitalCdptwbeKLSFPTEEVFRU7736-49-46 18:46:00 Test Item Value Reference Range Interpretation Comments Alk Phos (test code = Alk Phos) 65 39-136 [facility] HospitalAxrwxlxOVAGCVPXIDOO9794-54-49 18:46:00 Test Item Value Reference Range Interpretation Comments Bili Total (test code = Bili Total) 0.3 0.2-1.3 [facility] HospitalSrccklsHDNVFFHBMGJX0985-81-60 18:46:00 Test Item Value Reference Range Interpretation Comments ALT (test code = ALT) 100 See_Comment [Auto mated message] The system which ge nerated this result transmit elizabeth reference range : <=65. The reference range was not used to interpr et this result as margaret l/abnormal. [facility] HospitalGdsvxreHLVQATTKKZDZ8299-77-38 18:46:00 Test Item Value Reference Range Interpretation Comments AST (test code = AST) 53 See_Comment [Auto mated message] The system which ge nerated this result transmit elizabeth reference range : <=37. The reference range was not used to interpr et this result as margaret l/abnormal. [facility] HospitalOyzluinUMIVTODASYZZ6314-79-40 18:46:00 Test Item Value Reference Range Interpretation Comments Total Protein (test code = Total 6.9 6.4-8.4 Protein) [facility] CenterGyzpdarHHRULYNCTD8497-76-15 18:46:00 Test Item Value Reference Range Interpretation Comments Eosinophils (test code = 4.2 See_Comment [A utomated message] The Eosinophils) system which ge nerated this result tra nsmitted reference range : <=4.0. The reference r mitra was not used to int erpret this result as normal/abnormal . [facility] CenterEzyimikUVXAVYIPBH9882-86-93 18:46:00 Test Item Value Reference Range Interpretation Comments Segs (test code = Segs) 56.4 45.0-75.0 [facility] CenterGopjpypDGXXUWCIUO1435-91-04 18:46:00 Test Item Value Reference Range Interpretation Comments Monocytes (test code = Monocytes) 10.3 2.0-12.0 [facility] CenterThlsnzaMJJLYPTRWH1537-10-33 18:46:00 Test Item Value Reference Range Interpretation Comments Lymphocytes (test code = Lymphocytes) 28.0 20.0-40.0 [facility] CenterShasyxqSPZPGHHNGA7665-63-30 18:46:00 Test Item Value Reference Range Interpretation Comments Monocytes # (test code 0.5 See_Comment [Aut omated message] The = Monocytes #) system which generated this result tra nsmitted reference range : <=0.8. The reference r mitra was not used to int erpret this result as normal/abnormal . [facility] CenterNrlgbtmTIVSCUQFUL9363-85-35 18:46:00 Test Item Value Reference Range Interpretation Comments Basophils (test code = 1.1 See_Comment [Aut omated message] The Basophils) system which ge nerated this result tra nsmitted reference range : <=1.0. The reference r mitra was not used to int erpret this result as normal/abnormal . [facility] CenterHtolpecOZZLCTSRVL4043-81-97 18:46:00 Test Item Value Reference Range Interpretation Comments Lymphocytes # (test code = Lymphocytes 1.5 1.0-5.5 #) [facility] CenterSncpzprRJVVYICCEH9418-64-82 18:46:00 Test Item Value Reference Range Interpretation Comments Segs-Bands # (test code = Segs-Bands #) 2.9 1.5-8.1 [facility] CenterBaeicdsVPEOWETZAH6319-07-33 18:46:00 Test Item Value Reference Range Interpretation Comments Eosinophils # (test code 0.2 See_Comment [A utomated message] The = Eosinophils #) system whic h generated this result tra nsmitted reference range : <=0.5. The reference r mitra was not used to int erpret this result as normal/abnormal . [facility] CenterRdtqqciFVCKFPQUII2441-00-41 18:46:00 Test Item Value Reference Range Interpretation Comments Basophils # (test code 0.1 See_Comment [Aut omated message] The = Basophils #) system which generated this result tra nsmitted reference range : <=0.2. The reference r mitra was not used to int erpret this result as normal/abnormal . [facility]XhymbjnFXYNWLGLZG5766-89-03 18:46:00 Test Item Value Reference Range Interpretation Comments PT (test code = PT) 11.2 s 12.0-14.7 [facility] CenterMmdynjxNFWGJCSGHL4022-32-04 18:46:00 Test Item Value Reference Range Interpretation Comments INR (test code = INR) 0.82 0.85-1.17 [facility] CenterUunpxosZKYJMIMOOY9844-04-71 18:46:00 Test Item Value Reference Range Interpretation Comments PTT (test code = PTT) 28.6 s 22.9-35.8 [facility] CenterSeqifabFOBPCVNINE2747-38-19 18:46:00 Test Item Value Reference Range Interpretation Comments MPV (test code = MPV) 8.1 7.4-10.4 [facility] CenterNsqedtvYNCCYYAYGK2165-60-56 18:46:00 Test Item Value Reference Range Interpretation Comments Platelet (test code = Platelet) 301 133-450 [facility] CenterApqwgafDERYMSJACO7357-66-25 18:46:00 Test Item Value Reference Range Interpretation Comments RDW (test code = RDW) 14.5 11.5-14.5 [facility] CenterEiylriqICIKOVENUE1679-60-75 18:46:00 Test Item Value Reference Range Interpretation Comments RBC (test code = RBC) 4.84 4.70-6.10 [facility] CenterAuqnwzeFYCXCYEJCV6025-51-74 18:46:00 Test Item Value Reference Range Interpretation Comments Hgb (test code = Hgb) 14.4 14.0-18.0 [facility] CenterQgsmtxxOACUJWUGHH8226-57-40 18:46:00 Test Item Value Reference Range Interpretation Comments WBC (test code = WBC) 5.2 3.7-10.4 [facility] CenterTgkdfyyYZOIVKHOQE5535-54-61 18:46:00 Test Item Value Reference Range Interpretation Comments MCH (test code = MCH) 29.8 pg 27.0-31.0 [facility] CenterDynufgnEYGCVIHCJI8709-66-40 18:46:00 Test Item Value Reference Range Interpretation Comments MCV (test code = MCV) 92.0 80.0-94.0 [facility] CenterGkmjqwaKOOLFWUMOS7016-87-87 18:46:00 Test Item Value Reference Range Interpretation Comments Hct (test code = Hct) 44.5 42.0-54.0 [facility] CenterPsuudjeTNQFEZKINI4547-59-86 18:46:00 Test Item Value Reference Range Interpretation Comments MCHC (test code = MCHC) 32.4 32.0-36.0 [facility] CenterXpzfuvdESXBMADARO8246-17-73 18:46:00 Test Item Value Reference Range Interpretation Comments [place]-Hep C Ab (test Negative *NA*(07/22/14 code = [place]-Hep C 1:46 PM) Ab) [facility] AND [id number] 18:46:00 Test Item Value Reference Range Interpretation Comments UA Urobilinogen (test code = UA <=1.0 mg/dL 0.1-1.0 Urobilinogen) [facility] AND [id number] 18:46:00 Test Item Value Reference Range Interpretation Comments UA Sq Epi (test code = UA Sq Epi) None Seen [facility] AND [id number] 18:46:00 Test Item Value Reference Range Interpretation Comments UA Leuk Est (test Negative (07/22/14 1:46 code = UA Leuk Est) PM) [facility] AND [id number] 18:46:00 Test Item Value Reference Range Interpretation Comments UA Nitrite (test code Negative (07/22/14 1:46 = UA Nitrite) PM) [facility] AND [id number] 18:46:00 Test Item Value Reference Range Interpretation Comments UA Blood (test code = Negative (07/22/14 1:46 UA Blood) PM) [facility] AND [id number] 18:46:00 Test Item Value Reference Range Interpretation Comments UA Ketones (test code = UA Negative mg/dL Ketones) [facility] AND [id number] 18:46:00 Test Item Value Reference Range Interpretation Comments UA Bili (test code = Negative *NA*(07/22/14 UA Bili) 1:46 PM) [facility] AND [id number] 18:46:00 Test Item Value Reference Range Interpretation Comments UA Bacteria (test code = UA Occasional /HPF Bacteria) [facility] AND [id number] 18:46:00 Test Item Value Reference Range Interpretation Comments UA RBC (test code = no gt See_Comment [Automa elizabeth message] The UA RBC) system which ge nerated this result transmit elizabeth reference range : <=2. The reference range was not used to interpr et this result as margaret l/abnormal. [facility] AND [id number] 18:46:00 Test Item Value Reference Range Interpretation Comments UA WBC (test code = 1 See_Comment [Automa elizabeth message] The UA WBC) system which ge nerated this result transmit elizabeth reference range : <=5. The reference range was not used to interpr et this result as margaret l/abnormal. [facility] AND [id number] 18:46:00 Test Item Value Reference Range Interpretation Comments UA Glucose (test code = UA Glucose) 30 mg/dL [facility] AND [id number] 18:46:00 Test Item Value Reference Range Interpretation Comments UA Protein (test code = UA Negative mg/dL Protein) [facility] AND [id number] 18:46:00 Test Item Value Reference Range Interpretation Comments UA pH (test code = UA pH) 6.5 5.0-8.0 [facility] [id number] 18:46:00 Test Item Value Reference Range Interpretation Comments UA Turbidity (test code = Clear (07/22/14 1:46 UA Turbidity) PM) [facility] AND [id number] 18:46:00 Test Item Value Reference Range Interpretation Comments UA Spec Grav (test code = UA Spec Grav) 1.010 [facility] AND [id number] 18:46:00 Test Item Value Reference Range Interpretation Comments UA Color (test code = Light Yellow UA Color) *NA*(07/22/14 1:46 PM) [facility] [id number] 18:46:00 Test Item Value Reference Range Interpretation Comments Magnesium Lvl (test code = Magnesium 1.8 1.8-2.4 Lvl) [facility]XPHEPTR0511[facility] 18:46:00 Test Item Value Reference Range Interpretation Comments AGAP (test code = AGAP) 13.2 10.0-20.0 [facility] HospitalHbekxajJNRZVAPHDDUY9125-34-72 18:46:00 Test Item Value Reference Range Interpretation Comments B/C Ratio (test code = B/C Ratio) 18 6-25 [facility] HospitalJquvainNCCWSWTWJFAF2401-41-12 18:46:00 Test Item Value Reference Range Interpretation Comments A/G Ratio (test code = A/G Ratio) 1.1 0.7-1.6 [facility] HospitalZerhofdPFEOIFCFJAWO6344-90-62 18:46:00 Test Item Value Reference Range Interpretation Comments Globulin (test code = Globulin) 3.3 2.0-4.0 [facility] HospitalLkttklvFSOPIBKYODEP6272-97-37 18:46:00 Test Item Value Reference Range Interpretation Comments eGFR (test code = eGFR) 99 [facility] HospitalWhznborOZMWFRIKKISN0848-00-25 18:46:00 Test Item Value Reference Range Interpretation Comments Calcium Lvl (test code = Calcium Lvl) 9.0 8.5-10.5 [facility] HospitalKsauvzhBCYEPKTHWWEH1250-52-09 18:46:00 Test Item Value Reference Range Interpretation Comments Chloride Lvl (test code = Chloride Lvl) 106 95-109 [facility] HospitalNgrrbyzMQJHNTEEKXQJ8117-01-42 18:46:00 Test Item Value Reference Range Interpretation Comments Creatinine Lvl (test code = Creatinine 0.9 0.5-1.4 Lvl) [facility] HospitalPisbpyvMEGZTDFHOQHR2897-45-65 18:46:00 Test Item Value Reference Range Interpretation Comments Potassium Lvl (test code = Potassium 4.2 3.5-5.1 Lvl) [facility] HospitalUimdtwuLMDLNWLLCBXR1056-57-50 18:46:00 Test Item Value Reference Range Interpretation Comments Sodium Lvl (test code = Sodium Lvl) 139 135-145 [facility] HospitalAmmcordEYWLTOAHHYCZ4777-93-44 18:46:00 Test Item Value Reference Range Interpretation Comments CO2 (test code = CO2) 24 24-32 [facility] HospitalOpllqvzDDQXQRGKHADD2249-11-86 18:46:00 Test Item Value Reference Range Interpretation Comments BUN (test code = BUN) 16 7-22 [facility] HospitalHlandlrTCMDDCBSNSBV4093-92-98 18:46:00 Test Item Value Reference Range Interpretation Comments Glucose Lvl (test code = Glucose Lvl) 141 70-99 [facility] HospitalLywfrzsKITABYFBSWSV5098-80-23 18:46:00 Test Item Value Reference Range Interpretation Comments Albumin Lvl (test code = Albumin Lvl) 3.6 3.5-5.0 [facility] HospitalSeurxzcKWEFCAXDSKGS5269-77-25 18:46:00 Test Item Value Reference Range Interpretation Comments Alk Phos (test code = Alk Phos) 65 39-136 [facility] HospitalZfufoxkCOPBVBMWSDFB9286-53-94 18:46:00 Test Item Value Reference Range Interpretation Comments Bili Total (test code = Bili Total) 0.3 0.2-1.3 [facility] HospitalZjqixblMHFSFZFXMLGA7317-94-60 18:46:00 Test Item Value Reference Range Interpretation Comments ALT (test code = ALT) 100 See_Comment [Auto mated message] The system which ge nerated this result transmit elizabeth reference range : <=65. The reference range was not used to interpr et this result as margaret l/abnormal. [facility] HospitalGptogowXLIWQBTFBACZ3929-95-50 18:46:00 Test Item Value Reference Range Interpretation Comments AST (test code = AST) 53 See_Comment [Auto mated message] The system which ge nerated this result transmit elizabeth reference range : <=37. The reference range was not used to interpr et this result as margaret l/abnormal. [facility] HospitalMnfrlkjPDIVKVBHJVGR9581-15-75 18:46:00 Test Item Value Reference Range Interpretation Comments Total Protein (test code = Total 6.9 6.4-8.4 Protein) [facility] CenterYlhakmqTYRWZHTIIN5241-75-17 18:46:00 Test Item Value Reference Range Interpretation Comments Eosinophils (test code = 4.2 See_Comment [A utomated message] The Eosinophils) system which ge nerated this result tra nsmitted reference range : <=4.0. The reference r mitra was not used to int erpret this result as normal/abnormal . [facility] CenterDtfprdoAWJCVTUIET0640-31-61 18:46:00 Test Item Value Reference Range Interpretation Comments Segs (test code = Segs) 56.4 45.0-75.0 [facility] CenterIqoyzyvCUBGOBKYQZ5575-65-72 18:46:00 Test Item Value Reference Range Interpretation Comments Monocytes (test code = Monocytes) 10.3 2.0-12.0 [facility] CenterVfejuxcVMDONFCFVG6813-15-65 18:46:00 Test Item Value Reference Range Interpretation Comments Lymphocytes (test code = Lymphocytes) 28.0 20.0-40.0 [facility] CenterUgzukypKUXQMHCBLP3254-64-30 18:46:00 Test Item Value Reference Range Interpretation Comments Monocytes # (test code 0.5 See_Comment [Aut omated message] The = Monocytes #) system which generated this result tra nsmitted reference range : <=0.8. The reference r mitra was not used to int erpret this result as normal/abnormal . [facility] CenterOtjrenxNFUXKUFPAJ6534-98-28 18:46:00 Test Item Value Reference Range Interpretation Comments Basophils (test code = 1.1 See_Comment [Aut omated message] The Basophils) system which ge nerated this result tra nsmitted reference range : <=1.0. The reference r mirta was not used to int erpret this result as normal/abnormal . [facility] CenterOmdpuovVYWBWWDNJQ0827-74-41 18:46:00 Test Item Value Reference Range Interpretation Comments Lymphocytes # (test code = Lymphocytes 1.5 1.0-5.5 #) [facility] CenterOapjvdhDJPENFEDKE2825-61-33 18:46:00 Test Item Value Reference Range Interpretation Comments Segs-Bands # (test code = Segs-Bands #) 2.9 1.5-8.1 [facility] CenterOpdhvysCQCIWREVWF7482-83-28 18:46:00 Test Item Value Reference Range Interpretation Comments Eosinophils # (test code 0.2 See_Comment [A utomated message] The = Eosinophils #) system whic h generated this result tra nsmitted reference range : <=0.5. The reference r mitra was not used to int erpret this result as normal/abnormal . [facility] CenterXvjqoahJXWRBAYQSE9242-92-52 18:46:00 Test Item Value Reference Range Interpretation Comments Basophils # (test code 0.1 See_Comment [Aut omated message] The = Basophils #) system which generated this result tra nsmitted reference range : <=0.2. The reference r mitra was not used to int erpret this result as normal/abnormal . [facility] CenterAbpbjlqXLUSWNFRRL5382-04-18 18:46:00 Test Item Value Reference Range Interpretation Comments PT (test code = PT) 11.2 s 12.0-14.7 [facility] CenterLibhttaVDIQVKXLLF8038-88-56 18:46:00 Test Item Value Reference Range Interpretation Comments INR (test code = INR) 0.82 0.85-1.17 [facility] CenterSerlbeaQFBKRGIMEE4343-72-71 18:46:00 Test Item Value Reference Range Interpretation Comments PTT (test code = PTT) 28.6 s 22.9-35.8 [facility] CenterRrpeeddOHYDYYBMDR5387-15-21 18:46:00 Test Item Value Reference Range Interpretation Comments MPV (test code = MPV) 8.1 7.4-10.4 [facility] CenterEqmcnvoXHEROZIQDB6556-32-17 18:46:00 Test Item Value Reference Range Interpretation Comments Platelet (test code = Platelet) 301 133-450 [facility] CenterLwwrjnqDUPQFKLBDH7903-92-42 18:46:00 Test Item Value Reference Range Interpretation Comments RDW (test code = RDW) 14.5 11.5-14.5 [facility] CenterJxmwzjhRVUUJQUGIZ5308-98-25 18:46:00 Test Item Value Reference Range Interpretation Comments RBC (test code = RBC) 4.84 4.70-6.10 [facility] CenterIfodqpgOVEKSEAPOC2291-05-01 18:46:00 Test Item Value Reference Range Interpretation Comments Hgb (test code = Hgb) 14.4 14.0-18.0 [facility] CenterFxgxwmpNQOLRVERXK7427-63-25 18:46:00 Test Item Value Reference Range Interpretation Comments WBC (test code = WBC) 5.2 3.7-10.4 [facility]qnbEPXCWLGHDU1237-61-[facility] 18:46:00 Test Item Value Reference Range Interpretation Comments MCH (test code = MCH) 29.8 pg 27.0-31.0 [facility]SxldehcXCNKJWSPHH3336-16-06 18:46:00 Test Item Value Reference Range Interpretation Comments MCV (test code = MCV) 92.0 80.0-94.0 [facility] SystemFttpfrgLFDIJPJDHD4178-71-73 18:46:00 Test Item Value Reference Range Interpretation Comments Hct (test code = Hct) 44.5 42.0-54.0 [facility] SystemRorcnfjTBPDWVEPVB9116-21-13 18:46:00 Test Item Value Reference Range Interpretation Comments MCHC (test code = MCHC) 32.4 32.0-36.0 [facility] CenterMnuuyccZLOSMZMVNV7117-28-48 18:46:00 Test Item Value Reference Range Interpretation Comments [place]-Hep C Ab (test Negative *NA*(07/22/14 code = [place]-Hep C 1:46 PM) Ab) [facility] AND [id number] 18:46:00 Test Item Value Reference Range Interpretation Comments UA Urobilinogen (test code = UA <=1.0 mg/dL 0.1-1.0 Urobilinogen) [facility] AND [id number] 18:46:00 Test Item Value Reference Range Interpretation Comments UA Sq Epi (test code = UA Sq Epi) None Seen [facility] AND [id number] 18:46:00 Test Item Value Reference Range Interpretation Comments UA Leuk Est (test Negative (07/22/14 1:46 code = UA Leuk Est) PM) [facility] AND [id number] 18:46:00 Test Item Value Reference Range Interpretation Comments UA Nitrite (test code Negative (07/22/14 1:46 = UA Nitrite) PM) [facility] AND [id number] 18:46:00 Test Item Value Reference Range Interpretation Comments UA Blood (test code = Negative (07/22/14 1:46 UA Blood) PM) [facility] AND [id number] 18:46:00 Test Item Value Reference Range Interpretation Comments UA Ketones (test code = UA Negative mg/dL Ketones) [facility] AND [id number] 18:46:00 Test Item Value Reference Range Interpretation Comments UA Bili (test code = Negative *NA*(07/22/14 UA Bili) 1:46 PM) [facility] AND [id number] 18:46:00 Test Item Value Reference Range Interpretation Comments UA Bacteria (test code = UA Occasional /HPF Bacteria) [facility] AND [id number] 18:46:00 Test Item Value Reference Range Interpretation Comments UA RBC (test code = no gt See_Comment [Automa elizabeth message] The UA RBC) system which ge nerated this result transmit elizabeth reference range : <=2. The reference range was not used to interpr et this result as margaret l/abnormal. [facility] AND [id number] 18:46:00 Test Item Value Reference Range Interpretation Comments UA WBC (test code = 1 See_Comment [Automa elizabeth message] The UA WBC) system which ge nerated this result transmit elizabeth reference range : <=5. The reference range was not used to interpr et this result as margaret l/abnormal. [facility] AND [id number] 18:46:00 Test Item Value Reference Range Interpretation Comments UA Glucose (test code = UA Glucose) 30 mg/dL [facility] AND [id number] 18:46:00 Test Item Value Reference Range Interpretation Comments UA Protein (test code = UA Negative mg/dL Protein) [facility] AND [id number] 18:46:00 Test Item Value Reference Range Interpretation Comments UA pH (test code = UA pH) 6.5 5.0-8.0 [facility] AND [id number] 18:46:00 Test Item Value Reference Range Interpretation Comments UA Turbidity (test code = Clear (07/22/14 1:46 UA Turbidity) PM) [facility] AND [id number] 18:46:00 Test Item Value Reference Range Interpretation Comments UA Spec Grav (test code = UA Spec Grav) 1.010 [facility] AND [id number] 18:46:00 Test Item Value Reference Range Interpretation Comments UA Color (test code = Light Yellow UA Color) *NA*(07/22/14 1:46 PM) [facility]2015-06-09 18:46:00 Test Item Value Reference Range Interpretation Comments Magnesium Lvl (test code = Magnesium 1.8 1.8-2.4 Lvl) [facility] HospitalMaobplzTKUFOZGRHETV0080-25-29 18:46:00 Test Item Value Reference Range Interpretation Comments AGAP (test code = AGAP) 13.2 10.0-20.0 [facility] HospitalUykonaqWSDAYUKVSCUG1359-75-24 18:46:00 Test Item Value Reference Range Interpretation Comments B/C Ratio (test code = B/C Ratio) 18 6-25 [facility] HospitalRtgcstrXDWITWOJZHHK1374-20-43 18:46:00 Test Item Value Reference Range Interpretation Comments A/G Ratio (test code = A/G Ratio) 1.1 0.7-1.6 [facility] HospitalRtscozjYMKUCLXKOSDV5059-86-07 18:46:00 Test Item Value Reference Range Interpretation Comments Globulin (test code = Globulin) 3.3 2.0-4.0 [facility] HospitalNlcyrjzQFTRAOAAOFYJ7092-48-47 18:46:00 Test Item Value Reference Range Interpretation Comments eGFR (test code = eGFR) 99 [facility] HospitalYadiprgOXUCINFHTJBN2431-90-04 18:46:00 Test Item Value Reference Range Interpretation Comments Calcium Lvl (test code = Calcium Lvl) 9.0 8.5-10.5 [facility] HospitalFnfhhbmASINMHIGTYXW1476-56-14 18:46:00 Test Item Value Reference Range Interpretation Comments Chloride Lvl (test code = Chloride Lvl) 106 95-109 [facility] HospitalGdqdlteIXVVPLJEFWGD7964-28-52 18:46:00 Test Item Value Reference Range Interpretation Comments Creatinine Lvl (test code = Creatinine 0.9 0.5-1.4 Lvl) [facility] HospitalRkxrayzYXQGLBJCRMCU7386-31-37 18:46:00 Test Item Value Reference Range Interpretation Comments Potassium Lvl (test code = Potassium 4.2 3.5-5.1 Lvl) [facility] HospitalNkxewnvWDURQMFMMHGY2092-18-28 18:46:00 Test Item Value Reference Range Interpretation Comments Sodium Lvl (test code = Sodium Lvl) 139 135-145 [facility] HospitalZcngsdhENQUIJLDHRME8682-84-51 18:46:00 Test Item Value Reference Range Interpretation Comments CO2 (test code = CO2) 24 24-32 [facility] HospitalHmefcomYXYTSXRTKWGI6957-38-65 18:46:00 Test Item Value Reference Range Interpretation Comments BUN (test code = BUN) 16 7-22 [facility] HospitalSvwzpsaNRBNDKDRGRUE2612-10-93 18:46:00 Test Item Value Reference Range Interpretation Comments Glucose Lvl (test code = Glucose Lvl) 141 70-99 [facility] HospitalAxosqlxCVHOVKJTOBZA0455-19-04 18:46:00 Test Item Value Reference Range Interpretation Comments Albumin Lvl (test code = Albumin Lvl) 3.6 3.5-5.0 [facility] HospitalLyvhihqVZIRECTWXFRT3516-25-73 18:46:00 Test Item Value Reference Range Interpretation Comments Alk Phos (test code = Alk Phos) 65 39-136 [facility] HospitalCpjnuyqVEFSDCOVNCOV3601-70-39 18:46:00 Test Item Value Reference Range Interpretation Comments Bili Total (test code = Bili Total) 0.3 0.2-1.3 [facility] HospitalKlomeczNQGFNCRZWSYA2576-77-75 18:46:00 Test Item Value Reference Range Interpretation Comments ALT (test code = ALT) 100 See_Comment [Auto mated message] The system which ge nerated this result transmit elizabeth reference range : <=65. The reference range was not used to interpr et this result as margaret l/abnormal. [facility] HospitalMdqwcoeMFFYVRRROBLD6305-02-36 18:46:00 Test Item Value Reference Range Interpretation Comments AST (test code = AST) 53 See_Comment [Auto mated message] The system which ge nerated this result transmit elizabeth reference range : <=37. The reference range was not used to interpr et this result as margaret l/abnormal. [facility] HospitalQthqjhtIMLDEVBQHJBW0997-15-95 18:46:00 Test Item Value Reference Range Interpretation Comments Total Protein (test code = Total 6.9 6.4-8.4 Protein) [facility] CenterQoylqtsRISOJZIVAO5496-19-17 18:46:00 Test Item Value Reference Range Interpretation Comments Eosinophils (test code = 4.2 See_Comment [A utomated message] The Eosinophils) system which ge nerated this result tra nsmitted reference range : <=4.0. The reference r mitra was not used to int erpret this result as normal/abnormal . [facility] CenterRmioledRGCMAOIOPK7737-45-21 18:46:00 Test Item Value Reference Range Interpretation Comments Segs (test code = Segs) 56.4 45.0-75.0 [facility] CenterByhdjmrUVJDCEWNDX5550-71-07 18:46:00 Test Item Value Reference Range Interpretation Comments Monocytes (test code = Monocytes) 10.3 2.0-12.0 [facility] CenterAamtwhkTPIUFDQYFH6960-90-92 18:46:00 Test Item Value Reference Range Interpretation Comments Lymphocytes (test code = Lymphocytes) 28.0 20.0-40.0 [facility] CenterDrlbdyyNSTRZQIVNL3063-35-01 18:46:00 Test Item Value Reference Range Interpretation Comments Monocytes # (test code 0.5 See_Comment [Aut omated message] The = Monocytes #) system which generated this result tra nsmitted reference range : <=0.8. The reference r mitra was not used to int erpret this result as normal/abnormal . [facility] CenterMojsgwnJSTYFXQXWL8255-11-23 18:46:00 Test Item Value Reference Range Interpretation Comments Basophils (test code = 1.1 See_Comment [Aut omated message] The Basophils) system which ge nerated this result tra nsmitted reference range : <=1.0. The reference r mitra was not used to int erpret this result as normal/abnormal . [facility] CenterFeoviclFZVRJRXFON2570-40-48 18:46:00 Test Item Value Reference Range Interpretation Comments Lymphocytes # (test code = Lymphocytes 1.5 1.0-5.5 #) [facility] CenterNbyniilUBKFUHGAFY6976-89-46 18:46:00 Test Item Value Reference Range Interpretation Comments Segs-Bands # (test code = Segs-Bands #) 2.9 1.5-8.1 [facility] CenterRzkjhfyINCRWGDQNB4094-27-68 18:46:00 Test Item Value Reference Range Interpretation Comments Eosinophils # (test code 0.2 See_Comment [A utomated message] The = Eosinophils #) system whic h generated this result tra nsmitted reference range : <=0.5. The reference r mitra was not used to int erpret this result as normal/abnormal . [facility] CenterYplqjbwSBNGXEZERM6103-50-09 18:46:00 Test Item Value Reference Range Interpretation Comments Basophils # (test code 0.1 See_Comment [Aut omated message] The = Basophils #) system which generated this result tra nsmitted reference range : <=0.2. The reference r mitra was not used to int erpret this result as normal/abnormal . [facility] CenterVxroluoIBOYIJXOIE7479-96-42 18:46:00 Test Item Value Reference Range Interpretation Comments PT (test code = PT) 11.2 s 12.0-14.7 [facility] CenterThebguqIBBVUFEKMJ9544-25-99 18:46:00 Test Item Value Reference Range Interpretation Comments INR (test code = INR) 0.82 0.85-1.17 [facility]XxcvfjnHHKPUAXRPV1173-26-18 18:46:00 Test Item Value Reference Range Interpretation Comments PTT (test code = PTT) 28.6 s 22.9-35.8 [facility] CenterElxzwcpOPFINQVRHE8710-49-08 18:46:00 Test Item Value Reference Range Interpretation Comments MPV (test code = MPV) 8.1 7.4-10.4 [facility] CenterRvdrsreSQPYKCRDTW8391-57-69 18:46:00 Test Item Value Reference Range Interpretation Comments Platelet (test code = Platelet) 301 133-450 [facility] CenterBhxvqnoEHCQGDJZHK6473-25-93 18:46:00 Test Item Value Reference Range Interpretation Comments RDW (test code = RDW) 14.5 11.5-14.5 [facility] CenterYsicovbFGKQYQCMBE4412-37-37 18:46:00 Test Item Value Reference Range Interpretation Comments RBC (test code = RBC) 4.84 4.70-6.10 [facility] CenterLuqbrwmIYZJZJFFEX5176-58-42 18:46:00 Test Item Value Reference Range Interpretation Comments Hgb (test code = Hgb) 14.4 14.0-18.0 [facility] CenterEhuqwxgPVPZPQDCRH4614-98-65 18:46:00 Test Item Value Reference Range Interpretation Comments WBC (test code = WBC) 5.2 3.7-10.4 [facility] CenterOsiyahoARCSGZMXPU3222-15-42 18:46:00 Test Item Value Reference Range Interpretation Comments MCH (test code = MCH) 29.8 pg 27.0-31.0 [facility] CenterRuhknpxXNAHWCXXWF9772-13-33 18:46:00 Test Item Value Reference Range Interpretation Comments MCV (test code = MCV) 92.0 80.0-94.0 [facility] CenterThrpfyxCXUXSZCTLI0775-04-61 18:46:00 Test Item Value Reference Range Interpretation Comments Hct (test code = Hct) 44.5 42.0-54.0 [facility] TtajwbcDSAUUJYKVX5118-48-71 18:46:00 Test Item Value Reference Range Interpretation Comments MCHC (test code = MCHC) 32.4 32.0-36.0 [facility] EujnaidMFSSJDVRJZ4163-13-79 18:46:00 Test Item Value Reference Range Interpretation Comments [place]-Hep C Ab (test Negative *NA*(07/22/14 code = [place]-Hep C 1:46 PM) Ab) [facility] [id number] 18:46:00 Test Item Value Reference Range Interpretation Comments UA Urobilinogen (test code = UA <=1.0 mg/dL 0.1-1.0 Urobilinogen) [facility] [id number] 18:46:00 Test Item Value Reference Range Interpretation Comments UA Sq Epi (test code = UA Sq Epi) None [facility]en [facility] [id number] 18:46:00 Test Item Value Reference Range Interpretation Comments UA Leuk Est (test Negative (07/22/14 1:46 code = UA Leuk Est) PM) [facility] [id number] 18:46:00 Test Item Value Reference Range Interpretation Comments UA Nitrite (test code Negative (07/22/14 1:46 = UA Nitrite) PM) [facility] [id number] 18:46:00 Test Item Value Reference Range Interpretation Comments UA Blood (test code = Negative (07/22/14 1:46 UA Blood) PM) [facility] [id number] 18:46:00 Test Item Value Reference Range Interpretation Comments UA Ketones (test code = UA Negative mg/dL Ketones) [facility] [id number] 18:46:00 Test Item Value Reference Range Interpretation Comments UA Bili (test code = Negative *NA*(07/22/14 UA Bili) 1:46 PM) [facility] [id number] 18:46:00 Test Item Value Reference Range Interpretation Comments UA Bacteria (test code = UA Occasional /HPF Bacteria) [facility] [id number] 18:46:00 Test Item Value Reference Range Interpretation Comments UA RBC (test code = no gt See_Comment [Automa elizabeth message] The UA RBC) system which ge nerated this result transmit elizabeth reference range : <=2. The reference range was not used to interpr et this result as margaret l/abnormal. [facility] AND [id number] 18:46:00 Test Item Value Reference Range Interpretation Comments UA WBC (test code = 1 See_Comment [Automa elizabeth message] The UA WBC) system which ge nerated this result transmit elizabeth reference range : <=5. The reference range was not used to interpr et this result as margaret l/abnormal. [facility] AND [id number] 18:46:00 Test Item Value Reference Range Interpretation Comments UA Glucose (test code = UA Glucose) 30 mg/dL [facility] AND [id number] 18:46:00 Test Item Value Reference Range Interpretation Comments UA Protein (test code = UA Negative mg/dL Protein) [facility] AND [id number] 18:46:00 Test Item Value Reference Range Interpretation Comments UA pH (test code = UA pH) 6.5 5.0-8.0 [facility] AND [id number] 18:46:00 Test Item Value Reference Range Interpretation Comments UA Turbidity (test code = Clear (07/22/14 1:46 UA Turbidity) PM) [facility] AND [id number] 18:46:00 Test Item Value Reference Range Interpretation Comments UA Spec Grav (test code = UA Spec Grav) 1.010 [facility] AND [id number] 18:46:00 Test Item Value Reference Range Interpretation Comments UA Color (test code = Light Yellow UA Color) *NA*(07/22/14 1:46 PM) [facility] [id number] 18:46:00 Test Item Value Reference Range Interpretation Comments Magnesium Lvl (test code = Magnesium 1.8 1.8-2.4 Lvl) [facility]FPILL[facility]HZHZ1668-71-06 18:46:00 Test Item Value Reference Range Interpretation Comments AGAP (test code = AGAP) 13.2 10.0-20.0 [facility] HospitalKallxdsQHDIEDXRRQSH0267-98-14 18:46:00 Test Item Value Reference Range Interpretation Comments B/C Ratio (test code = B/C Ratio) 18 6-25 [facility] HospitalFwlkjktAGMTFMWVMEYD7737-69-24 18:46:00 Test Item Value Reference Range Interpretation Comments A/G Ratio (test code = A/G Ratio) 1.1 0.7-1.6 [facility] HospitalYnoiadgDGQHBBFNIXKI8406-48-93 18:46:00 Test Item Value Reference Range Interpretation Comments Globulin (test code = Globulin) 3.3 2.0-4.0 [facility] HospitalLqxnybcAKRRRLKBSBGV1624-62-54 18:46:00 Test Item Value Reference Range Interpretation Comments eGFR (test code = eGFR) 99 [facility] HospitalStwqvojVYVUNWQTUEKY5810-36-33 18:46:00 Test Item Value Reference Range Interpretation Comments Calcium Lvl (test code = Calcium Lvl) 9.0 8.5-10.5 [facility] HospitalQtzcszmLYUUJIGQCMWL6105-99-04 18:46:00 Test Item Value Reference Range Interpretation Comments Chloride Lvl (test code = Chloride Lvl) 106 95-109 [facility] HospitalLnnkfydLYNHUTKXMLCO2310-99-78 18:46:00 Test Item Value Reference Range Interpretation Comments Creatinine Lvl (test code = Creatinine 0.9 0.5-1.4 Lvl) [facility] HospitalLcimvkoLZWQCHSSMIPX2030-65-61 18:46:00 Test Item Value Reference Range Interpretation Comments Potassium Lvl (test code = Potassium 4.2 3.5-5.1 Lvl) [facility] HospitalIhkchexWIWJUENATXRR8301-34-32 18:46:00 Test Item Value Reference Range Interpretation Comments Sodium Lvl (test code = Sodium Lvl) 139 135-145 [facility] HospitalQsakvaiWPCIESGPZPMR6964-84-58 18:46:00 Test Item Value Reference Range Interpretation Comments CO2 (test code = CO2) 24 24-32 [facility] HospitalQkaamhdWVXUIRCUCADW1543-73-59 18:46:00 Test Item Value Reference Range Interpretation Comments BUN (test code = BUN) 16 7-22 [facility] HospitalYhncjriHAZVQHIXUAIV0734-55-34 18:46:00 Test Item Value Reference Range Interpretation Comments Glucose Lvl (test code = Glucose Lvl) 141 70-99 [facility] HospitalDeobhbwZZABMBASLLEJ3628-93-51 18:46:00 Test Item Value Reference Range Interpretation Comments Albumin Lvl (test code = Albumin Lvl) 3.6 3.5-5.0 [facility] HospitalPdgrsqnERPYBEHYCXLX0744-46-68 18:46:00 Test Item Value Reference Range Interpretation Comments Alk Phos (test code = Alk Phos) 65 39-136 [facility] HospitalIqtviiqTWKYKBTIGFLU3687-55-69 18:46:00 Test Item Value Reference Range Interpretation Comments Bili Total (test code = Bili Total) 0.3 0.2-1.3 [facility] HospitalJxyefayJMHECTGOQSTH9408-37-03 18:46:00 Test Item Value Reference Range Interpretation Comments ALT (test code = ALT) 100 See_Comment [Auto mated message] The system which ge nerated this result transmit elizabeth reference range : <=65. The reference range was not used to interpr et this result as margaret l/abnormal. [facility] HospitalRkbiwetCHHRJTFKPGXN7268-53-67 18:46:00 Test Item Value Reference Range Interpretation Comments AST (test code = AST) 53 See_Comment [Auto mated message] The system which ge nerated this result transmit elizabeth reference range : <=37. The reference range was not used to interpr et this result as margaret l/abnormal. [facility] HospitalHonisruKXYBIZRUFNFJ9597-47-25 18:46:00 Test Item Value Reference Range Interpretation Comments Total Protein (test code = Total 6.9 6.4-8.4 Protein) [facility] CenterEbivbrlMCPMQJBVSV6757-76-09 18:46:00 Test Item Value Reference Range Interpretation Comments Eosinophils (test code = 4.2 See_Comment [A utomated message] The Eosinophils) system which ge nerated this result tra nsmitted reference range : <=4.0. The reference r mitra was not used to int erpret this result as normal/abnormal . [facility] CenterJimgbtbFXDOONIKCP0095-40-95 18:46:00 Test Item Value Reference Range Interpretation Comments Segs (test code = Segs) 56.4 45.0-75.0 [facility] CenterQuathaoNYLBKDUHCI8861-25-42 18:46:00 Test Item Value Reference Range Interpretation Comments Monocytes (test code = Monocytes) 10.3 2.0-12.0 [facility] CenterTfotaruOTBQHHWQMN0333-77-67 18:46:00 Test Item Value Reference Range Interpretation Comments Lymphocytes (test code = Lymphocytes) 28.0 20.0-40.0 [facility] CenterUuackvxSCRDSPJCPP5891-63-07 18:46:00 Test Item Value Reference Range Interpretation Comments Monocytes # (test code 0.5 See_Comment [Aut omated message] The = Monocytes #) system which generated this result tra nsmitted reference range : <=0.8. The reference r mitra was not used to int erpret this result as normal/abnormal . [facility] CenterRtryzadMFQFJTEMIT9424-12-51 18:46:00 Test Item Value Reference Range Interpretation Comments Basophils (test code = 1.1 See_Comment [Aut omated message] The Basophils) system which ge nerated this result tra nsmitted reference range : <=1.0. The reference r mitra was not used to int erpret this result as normal/abnormal . [facility] CenterBbtijsvRPJVHCJCTV4392-00-32 18:46:00 Test Item Value Reference Range Interpretation Comments Lymphocytes # (test code = Lymphocytes 1.5 1.0-5.5 #) [facility] CenterPhnnzlmQDJFZEAQSR3355-45-89 18:46:00 Test Item Value Reference Range Interpretation Comments Segs-Bands # (test code = Segs-Bands #) 2.9 1.5-8.1 [facility] CenterVzkwinvEDKUGZPUQU4447-89-70 18:46:00 Test Item Value Reference Range Interpretation Comments Eosinophils # (test code 0.2 See_Comment [A utomated message] The = Eosinophils #) system whic h generated this result tra nsmitted reference range : <=0.5. The reference r mitra was not used to int erpret this result as normal/abnormal . [facility] CenterBozvlyhLUPQSQNVZB5215-63-30 18:46:00 Test Item Value Reference Range Interpretation Comments Basophils # (test code 0.1 See_Comment [Aut omated message] The = Basophils #) system which generated this result tra nsmitted reference range : <=0.2. The reference r mitra was not used to int erpret this result as normal/abnormal . [facility] CenterHrfqcubZJTCACWCVM8922-06-63 18:46:00 Test Item Value Reference Range Interpretation Comments PT (test code = PT) 11.2 s 12.0-14.7 [facility] CenterSjjtwuoPUPTYIYNUZ6483-85-44 18:46:00 Test Item Value Reference Range Interpretation Comments INR (test code = INR) 0.82 0.85-1.17 [facility] CenterOfryfipHGFCHXQRUU1837-76-69 18:46:00 Test Item Value Reference Range Interpretation Comments PTT (test code = PTT) 28.6 s 22.9-35.8 [facility]OVHSBQZIRJ5724-[facility]-96 18:46:00 Test Item Value Reference Range Interpretation Comments MPV (test code = MPV) 8.1 7.4-10.4 [facility] SystemCmxobzxKFCPCILGTG8415-04-26 18:46:00 Test Item Value Reference Range Interpretation Comments Platelet (test code = Platelet) 301 133-450 [facility] SystemVxkjyeiAMBGCDXUYN7927-76-89 18:46:00 Test Item Value Reference Range Interpretation Comments RDW (test code = RDW) 14.5 11.5-14.5 [facility] SystemZmzsfbpKEFPWMBHUL1321-30-04 18:46:00 Test Item Value Reference Range Interpretation Comments RBC (test code = RBC) 4.84 4.70-6.10 [facility] SystemBamrhasUVMAVRVJPX1418-90-05 18:46:00 Test Item Value Reference Range Interpretation Comments Hgb (test code = Hgb) 14.4 14.0-18.0 [facility] CenterFucunyoFFALKWBIRW2879-53-19 18:46:00 Test Item Value Reference Range Interpretation Comments WBC (test code = WBC) 5.2 3.7-10.4 [facility] SystemIfnruahXURXSPIQHN7936-05-96 18:46:00 Test Item Value Reference Range Interpretation Comments MCH (test code = MCH) 29.8 pg 27.0-31.0 [facility] SystemWtcriypMTBVBKDZLH4438-21-83 18:46:00 Test Item Value Reference Range Interpretation Comments MCV (test code = MCV) 92.0 80.0-94.0 [facility] CenterLexzovpHKUFJDARZK2245-24-53 18:46:00 Test Item Value Reference Range Interpretation Comments Hct (test code = Hct) 44.5 42.0-54.0 [facility] SystemJerawdgEONPYKBISY7653-43-14 18:46:00 Test Item Value Reference Range Interpretation Comments MCHC (test code = MCHC) 32.4 32.0-36.0 [facility]qlQFUDFPPIRV5897-08-38 18:46:00 Test Item Value Reference Range Interpretation Comments [place]-Hep C Ab (test Negative *NA*(07/22/14 code = [place]-Hep C 1:46 PM) Ab) [facility] AND [id number] 18:46:00 Test Item Value Reference Range Interpretation Comments UA Urobilinogen (test code = UA <=1.0 mg/dL 0.1-1.0 Urobilinogen) [facility] AND [id number] 18:46:00 Test Item Value Reference Range Interpretation Comments UA Sq Epi (test code = UA Sq Epi) None Seen [facility] AND [id number] 18:46:00 Test Item Value Reference Range Interpretation Comments UA Leuk Est (test Negative (07/22/14 1:46 code = UA Leuk Est) PM) [facility] AND [id number] 18:46:00 Test Item Value Reference Range Interpretation Comments UA Nitrite (test code Negative (07/22/14 1:46 = UA Nitrite) PM) [facility] AND [id number] 18:46:00 Test Item Value Reference Range Interpretation Comments UA Blood (test code = Negative (07/22/14 1:46 UA Blood) PM) [facility] AND [id number] 18:46:00 Test Item Value Reference Range Interpretation Comments UA Ketones (test code = UA Negative mg/dL Ketones) [facility] AND [id number] 18:46:00 Test Item Value Reference Range Interpretation Comments UA Bili (test code = Negative *NA*(07/22/14 UA Bili) 1:46 PM) [facility] AND [id number] 18:46:00 Test Item Value Reference Range Interpretation Comments UA Bacteria (test code = UA Occasional /HPF Bacteria) [facility] AND [id number] 18:46:00 Test Item Value Reference Range Interpretation Comments UA RBC (test code = no gt See_Comment [Automa elizabeth message] The UA RBC) system which ge nerated this result transmit elizabeth reference range : <=2. The reference range was not used to interpr et this result as amrgaret l/abnormal. [facility] AND [id number] 18:46:00 Test Item Value Reference Range Interpretation Comments UA WBC (test code = 1 See_Comment [Automa elizabeth message] The UA WBC) system which ge nerated this result transmit elizabeth reference range : <=5. The reference range was not used to interpr et this result as margaret l/abnormal. [facility] AND [id number] 18:46:00 Test Item Value Reference Range Interpretation Comments UA Glucose (test code = UA Glucose) 30 mg/dL [facility] AND [id number] 18:46:00 Test Item Value Reference Range Interpretation Comments UA Protein (test code = UA Negative mg/dL Protein) [facility] AND [id number] 18:46:00 Test Item Value Reference Range Interpretation Comments UA pH (test code = UA pH) 6.5 5.0-8.0 [facility] AND [id number] 18:46:00 Test Item Value Reference Range Interpretation Comments UA Turbidity (test code = Clear (07/22/14 1:46 UA Turbidity) PM) [facility] AND [id number] 18:46:00 Test Item Value Reference Range Interpretation Comments UA Spec Grav (test code = UA Spec Grav) 1.010 [facility] AND [id number] 18:46:00 Test Item Value Reference Range Interpretation Comments UA Color (test code = Light Yellow UA Color) *NA*(07/22/14 1:46 PM) [facility] [id number] 18:46:00 Test Item Value Reference Range Interpretation Comments Magnesium Lvl (test code = Magnesium 1.8 1.8-2.4 Lvl) [facility] HospitalNqhuhjjTWMSPEHIHGWP4337-67-25 18:46:00 Test Item Value Reference Range Interpretation Comments AGAP (test code = AGAP) 13.2 10.0-20.0 [facility] HospitalTudgripLXJVZRHACVPL2604-75-24 18:46:00 Test Item Value Reference Range Interpretation Comments B/C Ratio (test code = B/C Ratio) 18 6-25 [facility] HospitalBdorhlcHBOCWFZVDWFH5746-44-12 18:46:00 Test Item Value Reference Range Interpretation Comments A/G Ratio (test code = A/G Ratio) 1.1 0.7-1.6 [facility] HospitalFvlhylrDTUZRFLZIMVJ4179-20-47 18:46:00 Test Item Value Reference Range Interpretation Comments Globulin (test code = Globulin) 3.3 2.0-4.0 [facility] HospitalDbtdkgiGBMGHWEMVCXX9217-53-38 18:46:00 Test Item Value Reference Range Interpretation Comments eGFR (test code = eGFR) 99 [facility] HospitalBahxledWHVMBKZTXQYH3948-51-38 18:46:00 Test Item Value Reference Range Interpretation Comments Calcium Lvl (test code = Calcium Lvl) 9.0 8.5-10.5 [facility] HospitalSwobqtcFPYQJVRBEGOS9213-34-06 18:46:00 Test Item Value Reference Range Interpretation Comments Chloride Lvl (test code = Chloride Lvl) 106 95-109 [facility] HospitalHspevsnMMWCVLDRGWUN1285-03-64 18:46:00 Test Item Value Reference Range Interpretation Comments Creatinine Lvl (test code = Creatinine 0.9 0.5-1.4 Lvl) [facility] HospitalXgvmvptXONSTLGZBNZQ8933-30-59 18:46:00 Test Item Value Reference Range Interpretation Comments Potassium Lvl (test code = Potassium 4.2 3.5-5.1 Lvl) [facility] HospitalGhvwmliIJABIGCGJUBG6615-86-77 18:46:00 Test Item Value Reference Range Interpretation Comments Sodium Lvl (test code = Sodium Lvl) 139 135-145 [facility] HospitalFinoxxgUUZMCXHGEIQO6922-91-05 18:46:00 Test Item Value Reference Range Interpretation Comments CO2 (test code = CO2) 24 24-32 [facility] HospitalHzjqozyZGGGFLKTCNMY9009-02-02 18:46:00 Test Item Value Reference Range Interpretation Comments BUN (test code = BUN) 16 7-22 [facility] HospitalOsnvsbzZLMNFZJTVMZO0501-64-29 18:46:00 Test Item Value Reference Range Interpretation Comments Glucose Lvl (test code = Glucose Lvl) 141 70-99 [facility] HospitalUdsalvrQLFVQCDXKGKY1234-41-72 18:46:00 Test Item Value Reference Range Interpretation Comments Albumin Lvl (test code = Albumin Lvl) 3.6 3.5-5.0 [facility] HospitalZkjevjtYNEEVUKKOHPY8552-88-20 18:46:00 Test Item Value Reference Range Interpretation Comments Alk Phos (test code = Alk Phos) 65 39-136 [facility] HospitalMgskyieYOZYNUYDLRED6696-67-47 18:46:00 Test Item Value Reference Range Interpretation Comments Bili Total (test code = Bili Total) 0.3 0.2-1.3 [facility] HospitalSicjzklBIJQJWRNKGKU0480-76-88 18:46:00 Test Item Value Reference Range Interpretation Comments ALT (test code = ALT) 100 See_Comment [Auto mated message] The system which ge nerated this result transmit elizabeth reference range : <=65. The reference range was not used to interpr et this result as margaret l/abnormal. [facility] HospitalEvnjatpHGHQGFNIFDJD1365-23-17 18:46:00 Test Item Value Reference Range Interpretation Comments AST (test code = AST) 53 See_Comment [Auto mated message] The system which ge nerated this result transmit elizabeth reference range : <=37. The reference range was not used to interpr et this result as margaret l/abnormal. [facility] HospitalGxjponyKEQAQOMCAFAB7262-15-71 18:46:00 Test Item Value Reference Range Interpretation Comments Total Protein (test code = Total 6.9 6.4-8.4 Protein) [facility] CenterBwdwsrcECZDDRNPDT2619-59-03 18:46:00 Test Item Value Reference Range Interpretation Comments Eosinophils (test code = 4.2 See_Comment [A utomated message] The Eosinophils) system which ge nerated this result tra nsmitted reference range : <=4.0. The reference r mitra was not used to int erpret this result as normal/abnormal . [facility] CenterOcfgqnqBCJTYMAKOB1121-88-43 18:46:00 Test Item Value Reference Range Interpretation Comments Segs (test code = Segs) 56.4 45.0-75.0 [facility] CenterDbsmkbzRVBWSGCHHI9594-08-12 18:46:00 Test Item Value Reference Range Interpretation Comments Monocytes (test code = Monocytes) 10.3 2.0-12.0 [place] 305265-06-09 18:46:00 Test Item Value Reference Range Interpretation Comments Lymphocytes (test code = Lymphocytes) 28.0 20.0-40.0 [facility] CenterXswmeeyUHMGKKTZFA2688-58-05 18:46:00 Test Item Value Reference Range Interpretation Comments Monocytes # (test code 0.5 See_Comment [Aut omated message] The = Monocytes #) system which generated this result tra nsmitted reference range : <=0.8. The reference r mitra was not used to int erpret this result as normal/abnormal . [facility] CenterIydlffhWORZDUHKLP8618-36-80 18:46:00 Test Item Value Reference Range Interpretation Comments Basophils (test code = 1.1 See_Comment [Aut omated message] The Basophils) system which ge nerated this result tra nsmitted reference range : <=1.0. The reference r mitra was not used to int erpret this result as normal/abnormal . [facility] CenterXhmndlpDKMRNFBWEZ3238-68-61 18:46:00 Test Item Value Reference Range Interpretation Comments Lymphocytes # (test code = Lymphocytes 1.5 1.0-5.5 #) [facility] CenterRhdhyicHAMFXWXXJL5160-81-25 18:46:00 Test Item Value Reference Range Interpretation Comments Segs-Bands # (test code = Segs-Bands #) 2.9 1.5-8.1 [facility] CenterXhzknlkZKHQMIQKJO5559-04-44 18:46:00 Test Item Value Reference Range Interpretation Comments Eosinophils # (test code 0.2 See_Comment [A utomated message] The = Eosinophils #) system whic h generated this result tra nsmitted reference range : <=0.5. The reference r mitra was not used to int erpret this result as normal/abnormal . [facility] CenterXxfjwzoAXYEATVGET2475-94-04 18:46:00 Test Item Value Reference Range Interpretation Comments Basophils # (test code 0.1 See_Comment [Aut omated message] The = Basophils #) system which generated this result tra nsmitted reference range : <=0.2. The reference r mitra was not used to int erpret this result as normal/abnormal . [facility] CenterYvkwrscTFPWFAXDXP3793-96-25 18:46:00 Test Item Value Reference Range Interpretation Comments PT (test code = PT) 11.2 s 12.0-14.7 [facility] CenterYtunqziLPIRKNMBAH5525-74-13 18:46:00 Test Item Value Reference Range Interpretation Comments INR (test code = INR) 0.82 0.85-1.17 [facility] CenterSqgdnriCYRMVTHRDO0849-22-67 18:46:00 Test Item Value Reference Range Interpretation Comments PTT (test code = PTT) 28.6 s 22.9-35.8 [facility] CenterYktpolpPPLRUBIAVH0258-65-78 18:46:00 Test Item Value Reference Range Interpretation Comments MPV (test code = MPV) 8.1 7.4-10.4 [facility] Cent[id number] 18:46:00 Test Item Value Reference Range Interpretation Comments Platelet (test code = Platelet) 301 133-450 [facility] CenterGppefqpMNHBYCRALZ1340-02-11 18:46:00 Test Item Value Reference Range Interpretation Comments RDW (test code = RDW) 14.5 11.5-14.5 [facility]ukxsisHJURBSMZMP4421-77-07 18:46:00 Test Item Value Reference Range Interpretation Comments RBC (test code = RBC) 4.84 4.70-6.10 [facility]EgwvoccOFFTEKKECZ0734-39-65 18:46:00 Test Item Value Reference Range Interpretation Comments Hgb (test code = Hgb) 14.4 14.0-18.0 [facility] CenterNpcqhouGLQTVRYYSV7741-26-04 18:46:00 Test Item Value Reference Range Interpretation Comments WBC (test code = WBC) 5.2 3.7-10.4 [facility] SystemKykawrqJAFKLDWKBE5927-48-34 18:46:00 Test Item Value Reference Range Interpretation Comments MCH (test code = MCH) 29.8 pg 27.0-31.0 [facility] CenterXllhdsmNINILZCIRV0480-39-17 18:46:00 Test Item Value Reference Range Interpretation Comments MCV (test code = MCV) 92.0 80.0-94.0 [facility] CenterEwndxcxXBZWEJCLAT1172-36-07 18:46:00 Test Item Value Reference Range Interpretation Comments Hct (test code = Hct) 44.5 42.0-54.0 [facility] SystemCgvnyzvKNIKRAEMYO1774-74-43 18:46:00 Test Item Value Reference Range Interpretation Comments MCHC (test code = MCHC) 32.4 32.0-36.0 [facility] CenterFydqrwsWLKGLKJKGD4656-54-98 18:46:00 Test Item Value Reference Range Interpretation Comments [place]-Hep C Ab (test Negative *NA*(07/22/14 code = [place]-Hep C 1:46 PM) Ab) [facility] AND [id number] 18:46:00 Test Item Value Reference Range Interpretation Comments UA Urobilinogen (test code = UA <=1.0 mg/dL 0.1-1.0 Urobilinogen) [facility] AND [id number] 18:46:00 Test Item Value Reference Range Interpretation Comments UA Sq Epi (test code = UA Sq Epi) None Seen [facility] AND [id number] 18:46:00 Test Item Value Reference Range Interpretation Comments UA Leuk Est (test Negative (07/22/14 1:46 code = UA Leuk Est) PM) [facility] AND [id number] 18:46:00 Test Item Value Reference Range Interpretation Comments UA Nitrite (test code Negative (07/22/14 1:46 = UA Nitrite) PM) [facility] AND [id number] 18:46:00 Test Item Value Reference Range Interpretation Comments UA Blood (test code = Negative (07/22/14 1:46 UA Blood) PM) [facility] AND [id number] 18:46:00 Test Item Value Reference Range Interpretation Comments UA Ketones (test code = UA Negative mg/dL Ketones) [facility] AND [id number] 18:46:00 Test Item Value Reference Range Interpretation Comments UA Bili (test code = Negative *NA*(07/22/14 UA Bili) 1:46 PM) [facility] AND [id number] 18:46:00 Test Item Value Reference Range Interpretation Comments UA Bacteria (test code = UA Occasional /HPF Bacteria) [facility] AND [id number] 18:46:00 Test Item Value Reference Range Interpretation Comments UA RBC (test code = no gt See_Comment [Automa elizabeth message] The UA RBC) system which ge nerated this result transmit elizabeth reference range : <=2. The reference range was not used to interpr et this result as margaret l/abnormal. [facility] AND [id number] 18:46:00 Test Item Value Reference Range Interpretation Comments UA WBC (test code = 1 See_Comment [Automa elizabeth message] The UA WBC) system which ge nerated this result transmit elizabeth reference range : <=5. The reference range was not used to interpr et this result as margaret l/abnormal. [facility] AND [id number] 18:46:00 Test Item Value Reference Range Interpretation Comments UA Glucose (test code = UA Glucose) 30 mg/dL [facility] AND [id number] 18:46:00 Test Item Value Reference Range Interpretation Comments UA Protein (test code = UA Negative mg/dL Protein) [facility] AND [id number] 18:46:00 Test Item Value Reference Range Interpretation Comments UA pH (test code = UA pH) 6.5 5.0-8.0 [facility] AND [id number] 18:46:00 Test Item Value Reference Range Interpretation Comments UA Turbidity (test code = Clear (07/22/14 1:46 UA Turbidity) PM) [facility] AND [id number] 18:46:00 Test Item Value Reference Range Interpretation Comments UA Spec Grav (test code = UA Spec Grav) 1.010 [facility] AND [id number] 18:46:00 Test Item Value Reference Range Interpretation Comments UA Color (test code = Light Yellow UA Color) *NA*(07/22/14 1:46 PM) [facility] [id number] 18:46:00 Test Item Value Reference Range Interpretation Comments Magnesium Lvl (test code = Magnesium 1.8 1.8-2.4 Lvl) [facility] HospitalOuskuqtRUIRRRUJULQW4839-60-19 18:46:00 Test Item Value Reference Range Interpretation Comments AGAP (test code = AGAP) 13.2 10.0-20.0 [facility] HospitalAbyceliBRXIZGOOJMYI1857-46-58 18:46:00 Test Item Value Reference Range Interpretation Comments B/C Ratio (test code = B/C Ratio) 18 6-25 [facility] HospitalOquiqgrFDATVDAHUQLH2743-06-71 18:46:00 Test Item Value Reference Range Interpretation Comments A/G Ratio (test code = A/G Ratio) 1.1 0.7-1.6 [facility] HospitalJmqovobKJFRBJNUVPLZ9209-51-09 18:46:00 Test Item Value Reference Range Interpretation Comments Globulin (test code = Globulin) 3.3 2.0-4.0 [facility] HospitalHegutmlHLWHJGTXOLJM2187-41-36 18:46:00 Test Item Value Reference Range Interpretation Comments eGFR (test code = eGFR) 99 [facility] HospitalNxpbbwbDPILYYTCFOHI6133-50-63 18:46:00 Test Item Value Reference Range Interpretation Comments Calcium Lvl (test code = Calcium Lvl) 9.0 8.5-10.5 [facility] HospitalKxzuhrzOKFPTTHMRYYO0535-00-22 18:46:00 Test Item Value Reference Range Interpretation Comments Chloride Lvl (test code = Chloride Lvl) 106 95-109 [facility] HospitalPttoonvSIOPZESQONEW3994-90-10 18:46:00 Test Item Value Reference Range Interpretation Comments Creatinine Lvl (test code = Creatinine 0.9 0.5-1.4 Lvl) [facility] HospitalFzsyeukOSQUZEXWCDBX6142-34-47 18:46:00 Test Item Value Reference Range Interpretation Comments Potassium Lvl (test code = Potassium 4.2 3.5-5.1 Lvl) [facility] HospitalGzatbbkNAUTUQQTZTFP0857-84-28 18:46:00 Test Item Value Reference Range Interpretation Comments Sodium Lvl (test code = Sodium Lvl) 139 135-145 [facility] HospitalYzrbuzpKJMCKIUSOFFZ2918-19-46 18:46:00 Test Item Value Reference Range Interpretation Comments CO2 (test code = CO2) 24 24-32 [facility] HospitalZdqioonMBGCFXOGYBEZ4290-89-13 18:46:00 Test Item Value Reference Range Interpretation Comments BUN (test code = BUN) 16 7-22 [facility] HospitalDkjovbqTPBQUCYBITVM0136-03-47 18:46:00 Test Item Value Reference Range Interpretation Comments Glucose Lvl (test code = Glucose Lvl) 141 70-99 [facility] HospitalVhzsbidCUZHASMXETFL5286-92-90 18:46:00 Test Item Value Reference Range Interpretation Comments Albumin Lvl (test code = Albumin Lvl) 3.6 3.5-5.0 [facility] HospitalLabzsofYOSTTHDDDDGM7669-28-34 18:46:00 Test Item Value Reference Range Interpretation Comments Alk Phos (test code = Alk Phos) 65 39-136 [facility] HospitalGqmpktiRWUFNFYCAMRM5158-00-67 18:46:00 Test Item Value Reference Range Interpretation Comments Bili Total (test code = Bili Total) 0.3 0.2-1.3 [facility] HospitalAuimeegKLSDMOMJNQMG9464-27-72 18:46:00 Test Item Value Reference Range Interpretation Comments ALT (test code = ALT) 100 See_Comment [Auto mated message] The system which ge nerated this result transmit elizabeth reference range : <=65. The reference range was not used to interpr et this result as margaret l/abnormal. [facility] HospitalVvscnkvBXDDEIXDGNXA2655-37-50 18:46:00 Test Item Value Reference Range Interpretation Comments AST (test code = AST) 53 See_Comment [Auto mated message] The system which ge nerated this result transmit elizabeth reference range : <=37. The reference range was not used to interpr et this result as margaret l/abnormal. [facility] HospitalAffqfsuZNVSJPMRJEBA8534-94-42 18:46:00 Test Item Value Reference Range Interpretation Comments Total Protein (test code = Total 6.9 6.4-8.4 Protein) [facility] CenterFzwnnfzVUTIGQJYBL4577-02-47 18:46:00 Test Item Value Reference Range Interpretation Comments Eosinophils (test code = 4.2 See_Comment [A utomated message] The Eosinophils) system which ge nerated this result tra nsmitted reference range : <=4.0. The reference r mitra was not used to int erpret this result as normal/abnormal . [facility] CenterFdrmnwvOFECVTKLCN4177-95-78 18:46:00 Test Item Value Reference Range Interpretation Comments Segs (test code = Segs) 56.4 45.0-75.0 [facility] CenterGlxzrizDNZQNFITIA1946-82-96 18:46:00 Test Item Value Reference Range Interpretation Comments Monocytes (test code = Monocytes) 10.3 2.0-12.0 [facility] CenterKyogrpgPYEFDPWBML0593-83-10 18:46:00 Test Item Value Reference Range Interpretation Comments Lymphocytes (test code = Lymphocytes) 28.0 20.0-40.0 [facility] CenterLonqlaxMUQFGTEEKS3715-32-83 18:46:00 Test Item Value Reference Range Interpretation Comments Monocytes # (test code 0.5 See_Comment [Aut omated message] The = Monocytes #) system which generated this result tra nsmitted reference range : <=0.8. The reference r mitra was not used to int erpret this result as normal/abnormal . [facility] CenterKuivnlwPLLZTWRVFY6864-25-31 18:46:00 Test Item Value Reference Range Interpretation Comments Basophils (test code = 1.1 See_Comment [Aut omated message] The Basophils) system which ge nerated this result tra nsmitted reference range : <=1.0. The reference r mitra was not used to int erpret this result as normal/abnormal . [facility] CenterTclrjokOKKAICOMEV3182-09-88 18:46:00 Test Item Value Reference Range Interpretation Comments Lymphocytes # (test code = Lymphocytes 1.5 1.0-5.5 #) [facility] CenterDjdxgmdWNKMGTMCTG8599-90-87 18:46:00 Test Item Value Reference Range Interpretation Comments Segs-Bands # (test code = Segs-Bands #) 2.9 1.5-8.1 [facility] CenterHnptdkpUMFDIVJWCI9809-53-09 18:46:00 Test Item Value Reference Range Interpretation Comments Eosinophils # (test code 0.2 See_Comment [A utomated message] The = Eosinophils #) system whic h generated this result tra nsmitted reference range : <=0.5. The reference r mitra was not used to int erpret this result as normal/abnormal . [facility] CenterZjxaekiRNKQGRRQXE3395-26-67 18:46:00 Test Item Value Reference Range Interpretation Comments Basophils # (test code 0.1 See_Comment [Aut omated message] The = Basophils #) system which generated this result tra nsmitted reference range : <=0.2. The reference r mitra was not used to int erpret this result as normal/abnormal . [facility] CenterStxjzduLHYBRQZEAO2423-90-05 18:46:00 Test Item Value Reference Range Interpretation Comments PT (test code = PT) 11.2 s 12.0-14.7 [facility] CenterMclxzfdPLXZDXXSFR2435-77-97 18:46:00 Test Item Value Reference Range Interpretation Comments INR (test code = INR) 0.82 0.85-1.17 [facility] CenterVwtiscsRDJJYTSRAP1960-61-08 18:46:00 Test Item Value Reference Range Interpretation Comments PTT (test code = PTT) 28.6 s 22.9-35.8 [facility] CenterVhfoxwiKKWWAJSXKC2365-78-94 18:46:00 Test Item Value Reference Range Interpretation Comments MPV (test code = MPV) 8.1 7.4-10.4 [facility] CenterQzrqgitIJTTXQHOQR0652-38-26 18:46:00 Test Item Value Reference Range Interpretation Comments Platelet (test code = Platelet) 301 133-450 [facility] CenterYrwbixlTEVIPBXOEH7727-55-23 18:46:00 Test Item Value Reference Range Interpretation Comments RDW (test code = RDW) 14.5 11.5-14.5 [facility] CenterWtewotdYHHUEXZROJ9891-93-92 18:46:00 Test Item Value Reference Range Interpretation Comments RBC (test code = RBC) 4.84 4.70-6.10 [facility] CenterSceelxrOWJLDYGIII8313-63-89 18:46:00 Test Item Value Reference Range Interpretation Comments Hgb (test code = Hgb) 14.4 14.0-18.0 [place] 305265-06-09 18:46:00 Test Item Value Reference Range Interpretation Comments WBC (test code = WBC) 5.2 3.7-10.4 [facility] CenterLdotvwcSFTXXDAGDW2876-47-96 18:46:00 Test Item Value Reference Range Interpretation Comments MCH (test code = MCH) 29.8 pg 27.0-31.0 [facility] CenterGayvcaxFMSWHDSUXR9377-61-50 18:46:00 Test Item Value Reference Range Interpretation Comments MCV (test code = MCV) 92.0 80.0-94.0 [facility] CenterFityjsuVHUQRHOREL9360-46-79 18:46:00 Test Item Value Reference Range Interpretation Comments Hct (test code = Hct) 44.5 42.0-54.0 [facility] CenterNywbianCKFJHZTJRX1523-85-65 18:46:00 Test Item Value Reference Range Interpretation Comments MCHC (test code = MCHC) 32.4 32.0-36.0 [facility] CenterElomurpVJWIURHXTR4796-63-03 18:46:00 Test Item Value Reference Range Interpretation Comments [place]-Hep C Ab (test Negative *NA*(07/22/14 code = [place]-Hep C 1:46 PM) Ab) [facility] AND [id number] 18:46:00 Test Item Value Reference Range Interpretation Comments UA Urobilinogen (test code = UA <=1.0 mg/dL 0.1-1.0 Urobilinogen) [facility] AND [id number] 18:46:00 Test Item Value Reference Range Interpretation Comments UA Sq Epi (test code = UA Sq Epi) None Seen [facility] AND [id number] 18:46:00 Test Item Value Reference Range Interpretation Comments UA Leuk Est (test Negative (07/22/14 1:46 code = UA Leuk Est) PM) [facility] AND [id number] 18:46:00 Test Item Value Reference Range Interpretation Comments UA Nitrite (test code Negative (07/22/14 1:46 = UA Nitrite) PM) [facility] AND [id number] 18:46:00 Test Item Value Reference Range Interpretation Comments UA Blood (test code = Negative (07/22/14 1:46 UA Blood) PM) [facility] AND [id number] 18:46:00 Test Item Value Reference Range Interpretation Comments UA Ketones (test code = UA Negative mg/dL Ketones) [facility] AND [id number] 18:46:00 Test Item Value Reference Range Interpretation Comments UA Bili (test code = Negative *NA*(07/22/14 UA Bili) 1:46 PM) [facility] [id number] 18:46:00 Test Item Value Reference Range Interpretation Comments UA Bacteria (test code = UA Occasional /HPF Bacteria) [facility] [id number] 18:46:00 Test Item Value Reference Range Interpretation Comments UA RBC (test code = no gt See_Comment [Automa elizabeth message] The UA RBC) system which ge nerated this result transmit elizabeth reference range : <=2. The reference range was not used to interpr et this result as margaret l/abnormal. [facility] [id number] 18:46:00 Test Item Value Reference Range Interpretation Comments UA WBC (test code = 1 See_Comment [Automa elizabeth message] The UA WBC) system which ge nerated this result transmit elizabeth reference range : <=5. The reference range was not used to interpr et this result as margaret l/abnormal. [facility] [id number] 18:46:00 Test Item Value Reference Range Interpretation Comments UA Glucose (test code = UA Glucose) 30 mg/dL [facility] [id number] 18:46:00 Test Item Value Reference Range Interpretation Comments UA Protein (test code = UA Negative mg/dL Protein) [facility] [id number] 18:46:00 Test Item Value Reference Range Interpretation Comments UA pH (test code = UA pH) 6.5 5.0-8.0 [facility] [id number] 18:46:00 Test Item Value Reference Range Interpretation Comments UA Turbidity (test code = Clear (07/22/14 1:46 UA Turbidity) PM) [facility] [id number] 18:46:00 Test Item Value Reference Range Interpretation Comments UA Spec Grav (test code = UA Spec Grav) 1.010 [facility] [id number] 18:46:00 Test Item Value Reference Range Interpretation Comments UA Color (test code = Light Yellow UA Color) *NA*(07/22/14 1:46 PM) [facility] CenterannCHEM [id number] 18:46:00 Test Item Value Reference Range Interpretation Comments Magnesium Lvl (test code = Magnesium 1.8 1.8-2.4 Lvl) [facility] HospitalKqohrxrIFDKOANAURTB9798-25-59 18:46:00 Test Item Value Reference Range Interpretation Comments AGAP (test code = AGAP) 13.2 10.0-20.0 [facility] HospitalPjrxmxkBTOGKJKAEETC1137-82-43 18:46:00 Test Item Value Reference Range Interpretation Comments B/C Ratio (test code = B/C Ratio) 18 6-25 [facility] HospitalRyajjqnATRHCKYHWYZT0794-95-19 18:46:00 Test Item Value Reference Range Interpretation Comments A/G Ratio (test code = A/G Ratio) 1.1 0.7-1.6 [facility] HospitalLjwqhshAMNXJYTQAQXH9821-99-14 18:46:00 Test Item Value Reference Range Interpretation Comments Globulin (test code = Globulin) 3.3 2.0-4.0 [facility] HospitalKlhlegsIMZJSDKWCHSC1554-93-22 18:46:00 Test Item Value Reference Range Interpretation Comments eGFR (test code = eGFR) 99 [facility] HospitalIgjvrhiBVZOOZNNWGVD1177-28-50 18:46:00 Test Item Value Reference Range Interpretation Comments Calcium Lvl (test code = Calcium Lvl) 9.0 8.5-10.5 [facility] HospitalCmzodbnBTIRLZPYSJKC4050-53-11 18:46:00 Test Item Value Reference Range Interpretation Comments Chloride Lvl (test code = Chloride Lvl) 106 95-109 [facility] HospitalFsboddeXIXQXWCVAFCS2868-29-92 18:46:00 Test Item Value Reference Range Interpretation Comments Creatinine Lvl (test code = Creatinine 0.9 0.5-1.4 Lvl) [facility] HospitalQfdroxqZKLRVHEMOBMI5299-85-42 18:46:00 Test Item Value Reference Range Interpretation Comments Potassium Lvl (test code = Potassium 4.2 3.5-5.1 Lvl) [facility] HospitalFnufrbeZZVQPHJKTOIO2020-33-54 18:46:00 Test Item Value Reference Range Interpretation Comments Sodium Lvl (test code = Sodium Lvl) 139 135-145 [facility] HospitalXrwzbstMVPVSGCWKGOZ9517-08-11 18:46:00 Test Item Value Reference Range Interpretation Comments CO2 (test code = CO2) 24 24-32 [facility] HospitalGkhajiqFFIWZAPIWBSL1864-45-57 18:46:00 Test Item Value Reference Range Interpretation Comments BUN (test code = BUN) 16 7-22 [facility] HospitalAmbxgtaEWYHLKXQVEFZ9797-41-62 18:46:00 Test Item Value Reference Range Interpretation Comments Glucose Lvl (test code = Glucose Lvl) 141 70-99 [facility] HospitalOmncztpDYXTTYXNYRGW7194-18-71 18:46:00 Test Item Value Reference Range Interpretation Comments Albumin Lvl (test code = Albumin Lvl) 3.6 3.5-5.0 [facility] HospitalIgvbquaBFPFTPENHZUO4209-96-33 18:46:00 Test Item Value Reference Range Interpretation Comments Alk Phos (test code = Alk Phos) 65 39-136 [facility] HospitalQgnxamzXOMJYHXUOPUW9210-37-59 18:46:00 Test Item Value Reference Range Interpretation Comments Bili Total (test code = Bili Total) 0.3 0.2-1.3 [facility] HospitalGjszoudUVRWQUYFMBYG0014-96-65 18:46:00 Test Item Value Reference Range Interpretation Comments ALT (test code = ALT) 100 See_Comment [Auto mated message] The system which ge nerated this result transmit elizabeth reference range : <=65. The reference range was not used to interpr et this result as margaret l/abnormal. [facility] HospitalKllhnndGSPJRSLZBJZD6293-10-13 18:46:00 Test Item Value Reference Range Interpretation Comments AST (test code = AST) 53 See_Comment [Auto mated message] The system which ge nerated this result transmit elizabeth reference range : <=37. The reference range was not used to interpr et this result as margaret l/abnormal. [facility] HospitalPglkbkhFOYONCNDMFZQ5060-44-70 18:46:00 Test Item Value Reference Range Interpretation Comments Total Protein (test code = Total 6.9 6.4-8.4 Protein) [facility] CenterDwtgberNZLMWPZGZP2216-14-07 18:46:00 Test Item Value Reference Range Interpretation Comments Eosinophils (test code = 4.2 See_Comment [A utomated message] The Eosinophils) system which ge nerated this result tra nsmitted reference range : <=4.0. The reference r mitra was not used to int erpret this result as normal/abnormal . [facility] CenterLtwmptwKKVSFIRUKQ4968-80-61 18:46:00 Test Item Value Reference Range Interpretation Comments Segs (test code = Segs) 56.4 45.0-75.0 [facility] CenterSasutyfWTNGHCQUAH7546-03-80 18:46:00 Test Item Value Reference Range Interpretation Comments Monocytes (test code = Monocytes) 10.3 2.0-12.0 [facility] CenterOtowmifNBTLGWLCFQ9482-26-91 18:46:00 Test Item Value Reference Range Interpretation Comments Lymphocytes (test code = Lymphocytes) 28.0 20.0-40.0 [facility] CenterMqwzmvlOQDUBIEIYQ4480-55-60 18:46:00 Test Item Value Reference Range Interpretation Comments Monocytes # (test code 0.5 See_Comment [Aut omated message] The = Monocytes #) system which generated this result tra nsmitted reference range : <=0.8. The reference r mitra was not used to int erpret this result as normal/abnormal . [facility] CenterGwacybwKKPUMXHMNB5383-40-61 18:46:00 Test Item Value Reference Range Interpretation Comments Basophils (test code = 1.1 See_Comment [Aut omated message] The Basophils) system which ge nerated this result tra nsmitted reference range : <=1.0. The reference r mitra was not used to int erpret this result as normal/abnormal . [facility] CenterVcbyqvtJKYCJZOTVR3070-23-48 18:46:00 Test Item Value Reference Range Interpretation Comments Lymphocytes # (test code = Lymphocytes 1.5 1.0-5.5 #) [facility] CenterYjafpouWRRQAIQYJA7389-79-38 18:46:00 Test Item Value Reference Range Interpretation Comments Segs-Bands # (test code = Segs-Bands #) 2.9 1.5-8.1 [facility] CenterHsftrywEFAQWQWHMB3222-29-66 18:46:00 Test Item Value Reference Range Interpretation Comments Eosinophils # (test code 0.2 See_Comment [A utomated message] The = Eosinophils #) system whic h generated this result tra nsmitted reference range : <=0.5. The reference r mitra was not used to int erpret this result as normal/abnormal . [facility] CenterFjfytuuTHTISJRFPS6933-89-47 18:46:00 Test Item Value Reference Range Interpretation Comments Basophils # (test code 0.1 See_Comment [Aut omated message] The = Basophils #) system which generated this result tra nsmitted reference range : <=0.2. The reference r mitra was not used to int erpret this result as normal/abnormal . [facility] CenterRwoscvsFTGXFWAWCY3055-86-57 18:46:00 Test Item Value Reference Range Interpretation Comments PT (test code = PT) 11.2 s 12.0-14.7 [facility] CenterAsuxaddUVFJFVWINB5586-71-07 18:46:00 Test Item Value Reference Range Interpretation Comments INR (test code = INR) 0.82 0.85-1.17 [facility] CenterBgurzxzDPUBHNRYDE9071-82-21 18:46:00 Test Item Value Reference Range Interpretation Comments PTT (test code = PTT) 28.6 s 22.9-35.8 [facility] CenterKvxdztkRRLNHZTRSC7177-99-34 18:46:00 Test Item Value Reference Range Interpretation Comments MPV (test code = MPV) 8.1 7.4-10.4 [facility] CenterRhymzsoJIKGFYGVOZ9780-93-78 18:46:00 Test Item Value Reference Range Interpretation Comments Platelet (test code = Platelet) 301 133-450 [facility] CenterJxblsrqDFGFTABNQN6759-65-49 18:46:00 Test Item Value Reference Range Interpretation Comments RDW (test code = RDW) 14.5 11.5-14.5 [facility] Cent[id number] 18:46:00 Test Item Value Reference Range Interpretation Comments RBC (test code = RBC) 4.84 4.70-6.10 [facility] CenterLdaoijmJWDTOKURXX5565-16-20 18:46:00 Test Item Value Reference Range Interpretation Comments Hgb (test code = Hgb) 14.4 14.0-18.0 [facility] Cent[id number] 18:46:00 Test Item Value Reference Range Interpretation Comments WBC (test code = WBC) 5.2 3.7-10.4 [facility] CenterOlgbyesIPENVKKXSM5473-13-34 18:46:00 Test Item Value Reference Range Interpretation Comments MCH (test code = MCH) 29.8 pg 27.0-31.0 [facility] CenterGbejbtyZEZHENCZIT9200-26-87 18:46:00 Test Item Value Reference Range Interpretation Comments MCV (test code = MCV) 92.0 80.0-94.0 [facility] CenterAmrqujkUMJMOSCABE6479-67-22 18:46:00 Test Item Value Reference Range Interpretation Comments Hct (test code = Hct) 44.5 42.0-54.0 [facility] CenterXciucjgALKMIBBKNL3159-05-52 18:46:00 Test Item Value Reference Range Interpretation Comments MCHC (test code = MCHC) 32.4 32.0-36.0 [facility]fjoRNLVBMGYEQ6068-37-22 18:46:00 Test Item Value Reference Range Interpretation Comments [place]-Hep C Ab (test Negative *NA*(07/22/14 code = [place]-Hep C 1:46 PM) Ab) [facility] AND [id number] 18:46:00 Test Item Value Reference Range Interpretation Comments UA Urobilinogen (test code = UA <=1.0 mg/dL 0.1-1.0 Urobilinogen) [facility] AND [id number] 18:46:00 Test Item Value Reference Range Interpretation Comments UA Sq Epi (test code = UA Sq Epi) None Seen [facility] AND [id number] 18:46:00 Test Item Value Reference Range Interpretation Comments UA Leuk Est (test Negative (07/22/14 1:46 code = UA Leuk Est) PM) [facility] AND [id number] 18:46:00 Test Item Value Reference Range Interpretation Comments UA Nitrite (test code Negative (07/22/14 1:46 = UA Nitrite) PM) [facility] AND [id number] 18:46:00 Test Item Value Reference Range Interpretation Comments UA Blood (test code = Negative (07/22/14 1:46 UA Blood) PM) [facility] AND [id number] 18:46:00 Test Item Value Reference Range Interpretation Comments UA Ketones (test code = UA Negative mg/dL Ketones) [facility] AND [id number] 18:46:00 Test Item Value Reference Range Interpretation Comments UA Bili (test code = Negative *NA*(07/22/14 UA Bili) 1:46 PM) [facility] AND [id number] 18:46:00 Test Item Value Reference Range Interpretation Comments UA Bacteria (test code = UA Occasional /HPF Bacteria) [facility] AND [id number] 18:46:00 Test Item Value Reference Range Interpretation Comments UA RBC (test code = no gt See_Comment [Automa elizabeth message] The UA RBC) system which ge nerated this result transmit elizabeth reference range : <=2. The reference range was not used to interpr et this result as margaret l/abnormal. [facility] AND [id number] 18:46:00 Test Item Value Reference Range Interpretation Comments UA WBC (test code = 1 See_Comment [Automa elizabeth message] The UA WBC) system which ge nerated this result transmit elizabeth reference range : <=5. The reference range was not used to interpr et this result as margaret l/abnormal. [facility] AND [id number] 18:46:00 Test Item Value Reference Range Interpretation Comments UA Glucose (test code = UA Glucose) 30 mg/dL [facility] AND [id number] 18:46:00 Test Item Value Reference Range Interpretation Comments UA Protein (test code = UA Negative mg/dL Protein) [facility] AND [id number] 18:46:00 Test Item Value Reference Range Interpretation Comments UA pH (test code = UA pH) 6.5 5.0-8.0 [facility] AND [id number] 18:46:00 Test Item Value Reference Range Interpretation Comments UA Turbidity (test code = Clear (07/22/14 1:46 UA Turbidity) PM) [facility] AND [id number] 18:46:00 Test Item Value Reference Range Interpretation Comments UA Spec Grav (test code = UA Spec Grav) 1.010 [facility] AND [id number] 18:46:00 Test Item Value Reference Range Interpretation Comments UA Color (test code = Light Yellow UA Color) *NA*(07/22/14 1:46 PM) [facility] [id number] 18:46:00 Test Item Value Reference Range Interpretation Comments Magnesium Lvl (test code = Magnesium 1.8 1.8-2.4 Lvl) [id number] 18:46:00 Test Item Value Reference Range Interpretation Comments AGAP (test code = AGAP) 13.2 10.0-20.0 [facility] HospitalHgigklvORDRLCKPQUOL3350-69-57 18:46:00 Test Item Value Reference Range Interpretation Comments B/C Ratio (test code = B/C Ratio) 18 6-25 [facility] HospitalJvydyzdEYTVTMHWNCBX5025-65-02 18:46:00 Test Item Value Reference Range Interpretation Comments A/G Ratio (test code = A/G Ratio) 1.1 0.7-1.6 [facility] Hospital[id number] 18:46:00 Test Item Value Reference Range Interpretation Comments Globulin (test code = Globulin) 3.3 2.0-4.0 [facility] HospitalFmdjbmgPGTGLOOENNDQ3939-69-06 18:46:00 Test Item Value Reference Range Interpretation Comments eGFR (test code = eGFR) 99 [facility] HospitalRistdnaQPTAIEHUQQAM9985-35-70 18:46:00 Test Item Value Reference Range Interpretation Comments Calcium Lvl (test code = Calcium Lvl) 9.0 8.5-10.5 [facility] HospitalWoakxigXGYEBZQPUUTX6789-22-57 18:46:00 Test Item Value Reference Range Interpretation Comments Chloride Lvl (test code = Chloride Lvl) 106 95-109 [facility] HospitalLerdxahKELHMHOFAQFC3697-10-04 18:46:00 Test Item Value Reference Range Interpretation Comments Creatinine Lvl (test code = Creatinine 0.9 0.5-1.4 Lvl) [facility] HospitalUjdknwvYDHEXJRFIBWO8642-79-30 18:46:00 Test Item Value Reference Range Interpretation Comments Potassium Lvl (test code = Potassium 4.2 3.5-5.1 Lvl) [facility] HospitalMfhlxgoJIJHGRGWUZXE8819-00-57 18:46:00 Test Item Value Reference Range Interpretation Comments Sodium Lvl (test code = Sodium Lvl) 139 135-145 [facility] HospitalGmbtcktISNKYUPGHXTR6094-25-85 18:46:00 Test Item Value Reference Range Interpretation Comments CO2 (test code = CO2) 24 24-32 [facility] HospitalJjpagyfLACQIRKXNYWY2064-12-67 18:46:00 Test Item Value Reference Range Interpretation Comments BUN (test code = BUN) 16 7-22 [facility] HospitalEdwamquEHJNFRGLWBMG3463-71-37 18:46:00 Test Item Value Reference Range Interpretation Comments Glucose Lvl (test code = Glucose Lvl) 141 70-99 [facility] HospitalRvjxrtgNSGCPYCSGTHX4313-54-65 18:46:00 Test Item Value Reference Range Interpretation Comments Albumin Lvl (test code = Albumin Lvl) 3.6 3.5-5.0 [facility] HospitalXlmdvluARKCCGOXZNPL1142-29-11 18:46:00 Test Item Value Reference Range Interpretation Comments Alk Phos (test code = Alk Phos) 65 39-136 [facility] HospitalNghzmceODIMLAZRHMRX1564-29-35 18:46:00 Test Item Value Reference Range Interpretation Comments Bili Total (test code = Bili Total) 0.3 0.2-1.3 [facility] HospitalQjdqfbkKGGKRJIKGOTH3862-20-73 18:46:00 Test Item Value Reference Range Interpretation Comments ALT (test code = ALT) 100 See_Comment [Auto mated message] The system which ge nerated this result transmit elizabeth reference range : <=65. The reference range was not used to interpr et this result as margaret l/abnormal. [facility] HospitalShmjhniWWNQIXRGQYAI7543-23-60 18:46:00 Test Item Value Reference Range Interpretation Comments AST (test code = AST) 53 See_Comment [Auto mated message] The system which ge nerated this result transmit elizabeth reference range : <=37. The reference range was not used to interpr et this result as margaret l/abnormal. [facility] HospitalObgrpvkKSKRMSUPCEHL3155-09-72 18:46:00 Test Item Value Reference Range Interpretation Comments Total Protein (test code = Total 6.9 6.4-8.4 Protein) [facility] CenterFbwfsnlDBQNAYAUWA3113-89-35 18:46:00 Test Item Value Reference Range Interpretation Comments Eosinophils (test code = 4.2 See_Comment [A utomated message] The Eosinophils) system which ge nerated this result tra nsmitted reference range : <=4.0. The reference r mitra was not used to int erpret this result as normal/abnormal . [facility] CenterLibnamrCCRVSGPAAL0060-10-93 18:46:00 Test Item Value Reference Range Interpretation Comments Segs (test code = Segs) 56.4 45.0-75.0 [facility] CenterAbdbzdeWWHIYAEHBE9427-02-82 18:46:00 Test Item Value Reference Range Interpretation Comments Monocytes (test code = Monocytes) 10.3 2.0-12.0 [facility] CenterZinkxfnLLQJRQKCOQ7198-78-73 18:46:00 Test Item Value Reference Range Interpretation Comments Lymphocytes (test code = Lymphocytes) 28.0 20.0-40.0 [facility] CenterWpmbytaMIXLINDBUX0830-02-36 18:46:00 Test Item Value Reference Range Interpretation Comments Monocytes # (test code 0.5 See_Comment [Aut omated message] The = Monocytes #) system which generated this result tra nsmitted reference range : <=0.8. The reference r mitra was not used to int erpret this result as normal/abnormal . [facility] CenterNxgapbrCHMVGJNSWN8093-18-08 18:46:00 Test Item Value Reference Range Interpretation Comments Basophils (test code = 1.1 See_Comment [Aut omated message] The Basophils) system which ge nerated this result tra nsmitted reference range : <=1.0. The reference r mitra was not used to int erpret this result as normal/abnormal . [facility] CenterQqwuqxsRBOGNSCWED5387-10-60 18:46:00 Test Item Value Reference Range Interpretation Comments Lymphocytes # (test code = Lymphocytes 1.5 1.0-5.5 #) [facility] CenterKgdygabTTZYRLSMGI2951-63-69 18:46:00 Test Item Value Reference Range Interpretation Comments Segs-Bands # (test code = Segs-Bands #) 2.9 1.5-8.1 [facility] Cent[id number] 18:46:00 Test Item Value Reference Range Interpretation Comments Eosinophils # (test code 0.2 See_Comment [A utomated message] The = Eosinophils #) system wh h generated this result tra nsmitted reference range : <=0.5. The reference r mitra was not used to int erpret this result as normal/abnormal . [facility] CenterYrkrnucAWKMULJUCI2906-87-47 18:46:00 Test Item Value Reference Range Interpretation Comments Basophils # (test code 0.1 See_Comment [Aut omated message] The = Basophils #) system which generated this result tra nsmitted reference range : <=0.2. The reference r mitra was not used to int erpret this result as normal/abnormal . [facility] CenterQltzoczOOYKOEECYJ6994-33-69 18:46:00 Test Item Value Reference Range Interpretation Comments PT (test code = PT) 11.2 s 12.0-14.7 [facility] CenterSpipgweVPDZSFZFDC5710-09-51 18:46:00 Test Item Value Reference Range Interpretation Comments INR (test code = INR) 0.82 0.85-1.17 [facility] CenterHdogteyTEOIIKRCAG6065-46-93 18:46:00 Test Item Value Reference Range Interpretation Comments PTT (test code = PTT) 28.6 s 22.9-35.8 [facility] CenterJnpdozjAPKLQZFUAL3962-96-56 18:46:00 Test Item Value Reference Range Interpretation Comments MPV (test code = MPV) 8.1 7.4-10.4 [facility]brwftYUBNQYJEXO0229-84-81 18:46:00 Test Item Value Reference Range Interpretation Comments Platelet (test code = Platelet) 301 133-450 [facility] CenterNiesmvkRCYOJWRYHJ2116-79-71 18:46:00 Test Item Value Reference Range Interpretation Comments RDW (test code = RDW) 14.5 11.5-14.5 [facility] CenterIieximaARDZRIVEDG5871-22-63 18:46:00 Test Item Value Reference Range Interpretation Comments RBC (test code = RBC) 4.84 4.70-6.10 [facility]XpnizzlJRPESFYIAL7147-27-35 18:46:00 Test Item Value Reference Range Interpretation Comments Hgb (test code = Hgb) 14.4 14.0-18.0 [facility] CenterNlhzqluWJPKDURRPK3407-21-98 18:46:00 Test Item Value Reference Range Interpretation Comments WBC (test code = WBC) 5.2 3.7-10.4 [facility] CenterCvqmdizEHRTGBCWHP7981-70-97 18:46:00 Test Item Value Reference Range Interpretation Comments MCH (test code = MCH) 29.8 pg 27.0-31.0 [facility] CenterGxtrcurRFFXNOTKSI6455-79-12 18:46:00 Test Item Value Reference Range Interpretation Comments MCV (test code = MCV) 92.0 80.0-94.0 [facility]HcwbbrnIOWDRBMGCR4046-50-34 18:46:00 Test Item Value Reference Range Interpretation Comments Hct (test code = Hct) 44.5 42.0-54.0 [facility] SystemJawcnzdODHUVPVYDF3967-26-49 18:46:00 Test Item Value Reference Range Interpretation Comments MCHC (test code = MCHC) 32.4 32.0-36.0 [facility] CenterMkcmiktGPULQSIUKL4053-79-15 18:46:00 Test Item Value Reference Range Interpretation Comments [place]-Hep C Ab (test Negative *NA*(07/22/14 code = [place]-Hep C 1:46 PM) Ab) [facility] AND [id number] 18:46:00 Test Item Value Reference Range Interpretation Comments UA Urobilinogen (test code = UA <=1.0 mg/dL 0.1-1.0 Urobilinogen) [facility] AND [id number] 18:46:00 Test Item Value Reference Range Interpretation Comments UA Sq Epi (test code = UA Sq Epi) None Seen [facility] AND [id number] 18:46:00 Test Item Value Reference Range Interpretation Comments UA Leuk Est (test Negative (07/22/14 1:46 code = UA Leuk Est) PM) [facility] AND [id number] 18:46:00 Test Item Value Reference Range Interpretation Comments UA Nitrite (test code Negative (07/22/14 1:46 = UA Nitrite) PM) [facility] AND [id number] 18:46:00 Test Item Value Reference Range Interpretation Comments UA Blood (test code = Negative (07/22/14 1:46 UA Blood) PM) [facility] AND [id number] 18:46:00 Test Item Value Reference Range Interpretation Comments UA Ketones (test code = UA Negative mg/dL Ketones) [facility] AND [id number] 18:46:00 Test Item Value Reference Range Interpretation Comments UA Bili (test code = Negative *NA*(07/22/14 UA Bili) 1:46 PM) [facility] AND [id number] 18:46:00 Test Item Value Reference Range Interpretation Comments UA Bacteria (test code = UA Occasional /HPF Bacteria) [facility] AND [id number] 18:46:00 Test Item Value Reference Range Interpretation Comments UA RBC (test code = no gt See_Comment [Automa elizabeth message] The UA RBC) system which ge nerated this result transmit elizabeth reference range : <=2. The reference range was not used to interpr et this result as margaret l/abnormal. [facility] AND [id number] 18:46:00 Test Item Value Reference Range Interpretation Comments UA WBC (test code = 1 See_Comment [Automa elizabeth message] The UA WBC) system which ge nerated this result transmit elizabeth reference range : <=5. The reference range was not used to interpr et this result as margaret l/abnormal. [facility] AND [id number] 18:46:00 Test Item Value Reference Range Interpretation Comments UA Glucose (test code = UA Glucose) 30 mg/dL [facility] AND [id number] 18:46:00 Test Item Value Reference Range Interpretation Comments UA Protein (test code = UA Negative mg/dL Protein) [facility] AND [id number] 18:46:00 Test Item Value Reference Range Interpretation Comments UA pH (test code = UA pH) 6.5 5.0-8.0 [facility] [id number] 18:46:00 Test Item Value Reference Range Interpretation Comments UA Turbidity (test code = Clear (07/22/14 1:46 UA Turbidity) PM) [facility] AND [id number] 18:46:00 Test Item Value Reference Range Interpretation Comments UA Spec Grav (test code = UA Spec Grav) 1.010 [facility] AND [id number] 18:46:00 Test Item Value Reference Range Interpretation Comments UA Color (test code = Light Yellow UA Color) *NA*(07/22/14 1:46 PM) [facility] [id number] 18:46:00 Test Item Value Reference Range Interpretation Comments Magnesium Lvl (test code = Magnesium 1.8 1.8-2.4 Lvl) [facility]VjreiurLZAUCJPRWVSS4131-65-58 18:46:00 Test Item Value Reference Range Interpretation Comments AGAP (test code = AGAP) 13.2 10.0-20.0 [facility] HospitalIisvbbuYCMMFVVFEBPD8555-22-54 18:46:00 Test Item Value Reference Range Interpretation Comments B/C Ratio (test code = B/C Ratio) 18 6-25 [facility] HospitalTanblmtOIJZOKTWHXGC6817-00-46 18:46:00 Test Item Value Reference Range Interpretation Comments A/G Ratio (test code = A/G Ratio) 1.1 0.7-1.6 [facility] HospitalJvnzdedDELOMDGBKRCZ7038-53-28 18:46:00 Test Item Value Reference Range Interpretation Comments Globulin (test code = Globulin) 3.3 2.0-4.0 [facility] HospitalNpfgxktZFULQZVISBRI3088-43-62 18:46:00 Test Item Value Reference Range Interpretation Comments eGFR (test code = eGFR) 99 [facility] HospitalSgwgmueMBRZHPVVGDWE4009-06-54 18:46:00 Test Item Value Reference Range Interpretation Comments Calcium Lvl (test code = Calcium Lvl) 9.0 8.5-10.5 [facility] HospitalKkiwztoOBAABWWQCNMP4209-99-55 18:46:00 Test Item Value Reference Range Interpretation Comments Chloride Lvl (test code = Chloride Lvl) 106 95-109 [facility] HospitalOtcdxygJOFFTWCVYEDC1634-02-64 18:46:00 Test Item Value Reference Range Interpretation Comments Creatinine Lvl (test code = Creatinine 0.9 0.5-1.4 Lvl) [facility] HospitalBuhydexHFYRTZYTXRXF1760-51-37 18:46:00 Test Item Value Reference Range Interpretation Comments Potassium Lvl (test code = Potassium 4.2 3.5-5.1 Lvl) [facility] HospitalUzpimgfSAQGXXRYZAFD4198-08-98 18:46:00 Test Item Value Reference Range Interpretation Comments Sodium Lvl (test code = Sodium Lvl) 139 135-145 [facility] HospitalOlvgqzpYXZMPFXZPQDF2428-68-24 18:46:00 Test Item Value Reference Range Interpretation Comments CO2 (test code = CO2) 24 24-32 [facility] HospitalEaohymvFJVPTPCARTHG8271-62-98 18:46:00 Test Item Value Reference Range Interpretation Comments BUN (test code = BUN) 16 7-22 [facility] HospitalQiylypwHLCZUOJFZHVM0927-69-95 18:46:00 Test Item Value Reference Range Interpretation Comments Glucose Lvl (test code = Glucose Lvl) 141 70-99 [facility] HospitalKjhlgfhMSMRPGERQGOQ3870-14-99 18:46:00 Test Item Value Reference Range Interpretation Comments Albumin Lvl (test code = Albumin Lvl) 3.6 3.5-5.0 [facility] HospitalVgmerlhIALCQRPMIQMD8212-71-21 18:46:00 Test Item Value Reference Range Interpretation Comments Alk Phos (test code = Alk Phos) 65 39-136 [facility] HospitalResznhgDOKXVXNRZYWH9775-26-32 18:46:00 Test Item Value Reference Range Interpretation Comments Bili Total (test code = Bili Total) 0.3 0.2-1.3 [facility] HospitalJvrfbzcAKMVQNDBZCGI8087-64-27 18:46:00 Test Item Value Reference Range Interpretation Comments ALT (test code = ALT) 100 See_Comment [Auto mated message] The system which ge nerated this result transmit elizabeth reference range : <=65. The reference range was not used to interpr et this result as margaret l/abnormal. [facility] HospitalLrjcxslJUAVEPPCHTZN3041-47-21 18:46:00 Test Item Value Reference Range Interpretation Comments AST (test code = AST) 53 See_Comment [Auto mated message] The system which ge nerated this result transmit elizabeth reference range : <=37. The reference range was not used to interpr et this result as margaret l/abnormal. [facility] HospitalRbcjuflFJTUVCWMNMAR0259-88-03 18:46:00 Test Item Value Reference Range Interpretation Comments Total Protein (test code = Total 6.9 6.4-8.4 Protein) [facility] CenterZlxsavmQCRNOLPPNG3789-32-89 18:46:00 Test Item Value Reference Range Interpretation Comments Eosinophils (test code = 4.2 See_Comment [A utomated message] The Eosinophils) system which ge nerated this result tra nsmitted reference range : <=4.0. The reference r mitra was not used to int erpret this result as normal/abnormal . [facility] CenterThvlbvzPJQCADZJYT8336-16-69 18:46:00 Test Item Value Reference Range Interpretation Comments Segs (test code = Segs) 56.4 45.0-75.0 [facility] CenterDshtldhLPTROOXUZC5698-69-20 18:46:00 Test Item Value Reference Range Interpretation Comments Monocytes (test code = Monocytes) 10.3 2.0-12.0 [facility] CenterMnsiwxmLWJUDYEYHB7087-48-25 18:46:00 Test Item Value Reference Range Interpretation Comments Lymphocytes (test code = Lymphocytes) 28.0 20.0-40.0 [facility] CenterHpafudvWXLBBSGYVO8066-89-46 18:46:00 Test Item Value Reference Range Interpretation Comments Monocytes # (test code 0.5 See_Comment [Aut omated message] The = Monocytes #) system which generated this result tra nsmitted reference range : <=0.8. The reference r mitra was not used to int erpret this result as normal/abnormal . [facility] CenterYavgwexTVPNMUGLGG1660-45-87 18:46:00 Test Item Value Reference Range Interpretation Comments Basophils (test code = 1.1 See_Comment [Aut omated message] The Basophils) system which ge nerated this result tra nsmitted reference range : <=1.0. The reference r mitra was not used to int erpret this result as normal/abnormal . [facility] CenterHfwhkxjJKPRDZMCRK1562-01-82 18:46:00 Test Item Value Reference Range Interpretation Comments Lymphocytes # (test code = Lymphocytes 1.5 1.0-5.5 #) [facility] CenterXnqjepbSOUBCQIUIW8183-95-86 18:46:00 Test Item Value Reference Range Interpretation Comments Segs-Bands # (test code = Segs-Bands #) 2.9 1.5-8.1 [facility] CenterFjeusfgLIEMBNMSIW8193-72-93 18:46:00 Test Item Value Reference Range Interpretation Comments Eosinophils # (test code 0.2 See_Comment [A utomated message] The = Eosinophils #) system whic h generated this result tra nsmitted reference range : <=0.5. The reference r mitra was not used to int erpret this result as normal/abnormal . [facility] CenterFecbcsyPKIAFBGVCU5903-67-77 18:46:00 Test Item Value Reference Range Interpretation Comments Basophils # (test code 0.1 See_Comment [Aut omated message] The = Basophils #) system which generated this result tra nsmitted reference range : <=0.2. The reference r mirta was not used to int erpret this result as normal/abnormal . [facility] CenterGxsxytbHXNMYYCIZI6983-43-67 18:46:00 Test Item Value Reference Range Interpretation Comments PT (test code = PT) 11.2 s 12.0-14.7 [facility] CenterZvvzonvWNLZXGIHWY5362-90-63 18:46:00 Test Item Value Reference Range Interpretation Comments INR (test code = INR) 0.82 0.85-1.17 [facility] CenterKwlascyWAXKFXYDHW4281-46-96 18:46:00 Test Item Value Reference Range Interpretation Comments PTT (test code = PTT) 28.6 s 22.9-35.8 [facility] CenterQpndcvuAFUQQVYRNG6195-29-11 18:46:00 Test Item Value Reference Range Interpretation Comments MPV (test code = MPV) 8.1 7.4-10.4 [facility] CenterIldtqolQEFCRNZMAJ5901-23-78 18:46:00 Test Item Value Reference Range Interpretation Comments Platelet (test code = Platelet) 301 133-450 [facility] CenterZlrxrcwWQPHKIVEAG9796-58-04 18:46:00 Test Item Value Reference Range Interpretation Comments RDW (test code = RDW) 14.5 11.5-14.5 [facility] CenterRerxauvLCGMKJVNTY0863-80-19 18:46:00 Test Item Value Reference Range Interpretation Comments RBC (test code = RBC) 4.84 4.70-6.10 [facility] CenterJplvwfoOFLYOVAWWP9003-80-29 18:46:00 Test Item Value Reference Range Interpretation Comments Hgb (test code = Hgb) 14.4 14.0-18.0 [facility] Cent[id number] 18:46:00 Test Item Value Reference Range Interpretation Comments WBC (test code = WBC) 5.2 3.7-10.4 [facility]bLROGMRGMAQ1841-17-38 18:46:00 Test Item Value Reference Range Interpretation Comments MCH (test code = MCH) 29.8 pg 27.0-31.0 [facility] CenterSdlditrHMDNXYMMPX9282-40-25 18:46:00 Test Item Value Reference Range Interpretation Comments MCV (test code = MCV) 92.0 80.0-94.0 [facility] CenterLuyccfbNFHOKOVUPA8013-48-48 18:46:00 Test Item Value Reference Range Interpretation Comments Hct (test code = Hct) 44.5 42.0-54.0 [facility] CenterAwacxriPQHJMTFKJP1983-26-68 18:46:00 Test Item Value Reference Range Interpretation Comments MCHC (test code = MCHC) 32.4 32.0-36.0 [facility] CenterAffpzpfFRSOIUIFHJ5122-61-68 18:46:00 Test Item Value Reference Range Interpretation Comments [place]-Hep C Ab (test Negative *NA*(07/22/14 code = [place]-Hep C 1:46 PM) Ab) [facility] AND [id number] 18:46:00 Test Item Value Reference Range Interpretation Comments UA Urobilinogen (test code = UA <=1.0 mg/dL 0.1-1.0 Urobilinogen) [facility] AND [id number] 18:46:00 Test Item Value Reference Range Interpretation Comments UA Sq Epi (test code = UA Sq Epi) None Seen [facility] AND [id number] 18:46:00 Test Item Value Reference Range Interpretation Comments UA Leuk Est (test Negative (07/22/14 1:46 code = UA Leuk Est) PM) [facility] AND [id number] 18:46:00 Test Item Value Reference Range Interpretation Comments UA Nitrite (test code Negative (07/22/14 1:46 = UA Nitrite) PM) [facility] AND [id number] 18:46:00 Test Item Value Reference Range Interpretation Comments UA Blood (test code = Negative (07/22/14 1:46 UA Blood) PM) [facility] AND [id number] 18:46:00 Test Item Value Reference Range Interpretation Comments UA Ketones (test code = UA Negative mg/dL Ketones) [facility] AND [id number] 18:46:00 Test Item Value Reference Range Interpretation Comments UA Bili (test code = Negative *NA*(07/22/14 UA Bili) 1:46 PM) [facility] AND [id number] 18:46:00 Test Item Value Reference Range Interpretation Comments UA Bacteria (test code = UA Occasional /HPF Bacteria) [facility] AND [id number] 18:46:00 Test Item Value Reference Range Interpretation Comments UA RBC (test code = no gt See_Comment [Automa elizabeth message] The UA RBC) system which ge nerated this result transmit elizabeth reference range : <=2. The reference range was not used to interpr et this result as margaret l/abnormal. [facility] AND [id number] 18:46:00 Test Item Value Reference Range Interpretation Comments UA WBC (test code = 1 See_Comment [Automa elizabeth message] The UA WBC) system which ge nerated this result transmit elizabeth reference range : <=5. The reference range was not used to interpr et this result as margaret l/abnormal. [facility] AND [id number] 18:46:00 Test Item Value Reference Range Interpretation Comments UA Glucose (test code = UA Glucose) 30 mg/dL [facility] AND [id number] 18:46:00 Test Item Value Reference Range Interpretation Comments UA Protein (test code = UA Negative mg/dL Protein) [facility] AND [id number] 18:46:00 Test Item Value Reference Range Interpretation Comments UA pH (test code = UA pH) 6.5 5.0-8.0 [facility] AND [id number] 18:46:00 Test Item Value Reference Range Interpretation Comments UA Turbidity (test code = Clear (07/22/14 1:46 UA Turbidity) PM) [facility] AND [id number] 18:46:00 Test Item Value Reference Range Interpretation Comments UA Spec Grav (test code = UA Spec Grav) 1.010 [facility] AND [id number] 18:46:00 Test Item Value Reference Range Interpretation Comments UA Color (test code = Light Yellow UA Color) *NA*(07/22/14 1:46 PM) [facility] [id number] 18:46:00 Test Item Value Reference Range Interpretation Comments Magnesium Lvl (test code = Magnesium 1.8 1.8-2.4 Lvl) [facility] HospitalOkdwewvNESLRMJCKDOQ7435-15-59 18:46:00 Test Item Value Reference Range Interpretation Comments AGAP (test code = AGAP) 13.2 10.0-20.0 [facility] Hospital[id number] 18:46:00 Test Item Value Reference Range Interpretation Comments B/C Ratio (test code = B/C Ratio) 18 6-25 [facility] HospitalCduiwesCORMARWDPXPQ5114-91-69 18:46:00 Test Item Value Reference Range Interpretation Comments A/G Ratio (test code = A/G Ratio) 1.1 0.7-1.6 [facility] HospitalCpesemkATLQVPTJYFSD7108-93-86 18:46:00 Test Item Value Reference Range Interpretation Comments Globulin (test code = Globulin) 3.3 2.0-4.0 [facility] HospitalWhtbqxkVNWZBGFHTEFB4918-79-26 18:46:00 Test Item Value Reference Range Interpretation Comments eGFR (test code = eGFR) 99 [facility] HospitalUtghnrmRTZUCQKZAHYH3271-89-46 18:46:00 Test Item Value Reference Range Interpretation Comments Calcium Lvl (test code = Calcium Lvl) 9.0 8.5-10.5 [facility] HospitalYovbhajIFNAJMUCEYSP7817-98-29 18:46:00 Test Item Value Reference Range Interpretation Comments Chloride Lvl (test code = Chloride Lvl) 106 95-109 [facility] HospitalQddygcvACCHXNBKIWJK6004-83-89 18:46:00 Test Item Value Reference Range Interpretation Comments Creatinine Lvl (test code = Creatinine 0.9 0.5-1.4 Lvl) [facility] HospitalQrdwtjbHAMKUMLVDMEP0557-96-53 18:46:00 Test Item Value Reference Range Interpretation Comments Potassium Lvl (test code = Potassium 4.2 3.5-5.1 Lvl) [facility] HospitalCtwebvnJPLLAKMMGLNX9796-36-48 18:46:00 Test Item Value Reference Range Interpretation Comments Sodium Lvl (test code = Sodium Lvl) 139 135-145 [facility] HospitalHhjvnytFFMBCBYGJXGQ7259-25-72 18:46:00 Test Item Value Reference Range Interpretation Comments CO2 (test code = CO2) 24 24-32 [facility] HospitalPilhuzvGCZKJVOROJJI1799-45-10 18:46:00 Test Item Value Reference Range Interpretation Comments BUN (test code = BUN) 16 7-22 [facility] HospitalTpkorbkYMPKRFORBKTM7212-76-61 18:46:00 Test Item Value Reference Range Interpretation Comments Glucose Lvl (test code = Glucose Lvl) 141 70-99 [facility] HospitalWmimwyyCOJQETKGSSKA8828-99-07 18:46:00 Test Item Value Reference Range Interpretation Comments Albumin Lvl (test code = Albumin Lvl) 3.6 3.5-5.0 [facility] HospitalPxkaxcdJMNZLNWJTKOV6419-80-06 18:46:00 Test Item Value Reference Range Interpretation Comments Alk Phos (test code = Alk Phos) 65 39-136 [facility] HospitalVzuohguZMHDKRVODAZU0344-83-31 18:46:00 Test Item Value Reference Range Interpretation Comments Bili Total (test code = Bili Total) 0.3 0.2-1.3 [facility] HospitalLpktmkmGOXFMHAOSJIY6486-86-42 18:46:00 Test Item Value Reference Range Interpretation Comments ALT (test code = ALT) 100 See_Comment [Auto mated message] The system which ge nerated this result transmit elizabeth reference range : <=65. The reference range was not used to interpr et this result as margaret l/abnormal. [facility] HospitalDqcfvylGFBZIOMYVNLR0342-59-38 18:46:00 Test Item Value Reference Range Interpretation Comments AST (test code = AST) 53 See_Comment [Auto mated message] The system which ge nerated this result transmit elizabeth reference range : <=37. The reference range was not used to interpr et this result as margaret l/abnormal. [facility] HospitalGicmzhvXQPRRKKINOYH7286-70-95 18:46:00 Test Item Value Reference Range Interpretation Comments Total Protein (test code = Total 6.9 6.4-8.4 Protein) [facility] Cent[id number] 18:46:00 Test Item Value Reference Range Interpretation Comments Eosinophils (test code = 4.2 See_Comment [A utomated message] The Eosinophils) system which ge nerated this result tra nsmitted reference range : <=4.0. The reference r mitra was not used to int erpret this result as normal/abnormal . [facility] CenterNbbosnkGPMSAVXTAV2719-67-04 18:46:00 Test Item Value Reference Range Interpretation Comments Segs (test code = Segs) 56.4 45.0-75.0 [facility] CenterEtdwvjqHADUASVNNR4322-03-68 18:46:00 Test Item Value Reference Range Interpretation Comments Monocytes (test code = Monocytes) 10.3 2.0-12.0 [facility] CenterReqvlqfTTWHQIPWMA4490-11-31 18:46:00 Test Item Value Reference Range Interpretation Comments Lymphocytes (test code = Lymphocytes) 28.0 20.0-40.0 [facility] CenterAyvozlbFKQLSZFYNP2044-07-11 18:46:00 Test Item Value Reference Range Interpretation Comments Monocytes # (test code 0.5 See_Comment [Aut omated message] The = Monocytes #) system which generated this result tra nsmitted reference range : <=0.8. The reference r mitra was not used to int erpret this result as normal/abnormal . [facility] CenterTabalduWQTDLWBWIA9008-45-28 18:46:00 Test Item Value Reference Range Interpretation Comments Basophils (test code = 1.1 See_Comment [Aut omated message] The Basophils) system which ge nerated this result tra nsmitted reference range : <=1.0. The reference r mitra was not used to int erpret this result as normal/abnormal . [facility] CenterBmntnflXUZYDQTSLW7653-25-13 18:46:00 Test Item Value Reference Range Interpretation Comments Lymphocytes # (test code = Lymphocytes 1.5 1.0-5.5 #) [facility] CenterXilrhteSNACJHDUWU7540-35-25 18:46:00 Test Item Value Reference Range Interpretation Comments Segs-Bands # (test code = Segs-Bands #) 2.9 1.5-8.1 [facility] CenterXucjadpIHVFYHSANU1520-93-14 18:46:00 Test Item Value Reference Range Interpretation Comments Eosinophils # (test code 0.2 See_Comment [A utomated message] The = Eosinophils #) system whic h generated this result tra nsmitted reference range : <=0.5. The reference r mitra was not used to int erpret this result as normal/abnormal . [facility] Cent[id number] 18:46:00 Test Item Value Reference Range Interpretation Comments Basophils # (test code 0.1 See_Comment [Aut omated message] The = Basophils #) system which generated this result tra nsmitted reference range : <=0.2. The reference r mitra was not used to int erpret this result as normal/abnormal . [facility] CenterLtygbmgZEFHLPZSVK2431-61-42 18:46:00 Test Item Value Reference Range Interpretation Comments PT (test code = PT) 11.2 s 12.0-14.7 [facility] CenterPmccifhUEINXRKFLR3371-86-32 18:46:00 Test Item Value Reference Range Interpretation Comments INR (test code = INR) 0.82 0.85-1.17 [facility] CenterAzjrpmrQSACSJACIF8804-76-20 18:46:00 Test Item Value Reference Range Interpretation Comments PTT (test code = PTT) 28.6 s 22.9-35.8 [facility] CenterWgdkdiaNZHGIBBNSV5258-94-67 18:46:00 Test Item Value Reference Range Interpretation Comments MPV (test code = MPV) 8.1 7.4-10.4 [facility] CenterXpkudptGQMXPXEHYM0818-80-80 18:46:00 Test Item Value Reference Range Interpretation Comments Platelet (test code = Platelet) 301 133-450 [facility] CenterCspbdboTIDJPVVTGI6864-19-15 18:46:00 Test Item Value Reference Range Interpretation Comments RDW (test code = RDW) 14.5 11.5-14.5 [facility] CenterRkrwpsxHYCSTGUXWC6191-98-88 18:46:00 Test Item Value Reference Range Interpretation Comments RBC (test code = RBC) 4.84 4.70-6.10 [facility] CenterRrfmayfHHMQBKLIGQ6493-55-53 18:46:00 Test Item Value Reference Range Interpretation Comments Hgb (test code = Hgb) 14.4 14.0-18.0 [facility] CenterAgpgmqySFHMQGSUTG9740-29-18 18:46:00 Test Item Value Reference Range Interpretation Comments WBC (test code = WBC) 5.2 3.7-10.4 [facility] CenterAhpvmhmKRZDDIUSMD7007-60-03 18:46:00 Test Item Value Reference Range Interpretation Comments MCH (test code = MCH) 29.8 pg 27.0-31.0 [facility] CenterVfhurioYPCMZOPBZI7514-12-47 18:46:00 Test Item Value Reference Range Interpretation Comments MCV (test code = MCV) 92.0 80.0-94.0 [place] [id number] 18:46:00 Test Item Value Reference Range Interpretation Comments Hct (test code = Hct) 44.5 42.0-54.0 [facility] YaugmgdVQIGLQPIGD1466-24-87 18:46:00 Test Item Value Reference Range Interpretation Comments MCHC (test code = MCHC) 32.4 32.0-36.0 [facility]SdiyvijFZAQYUKUDX4321-74-77 18:46:00 Test Item Value Reference Range Interpretation Comments [place]-Hep C Ab (test Negative *NA*(07/22/14 code = [place]-Hep C 1:46 PM) Ab) [facility] AND [id number] 18:46:00 Test Item Value Reference Range Interpretation Comments UA Urobilinogen (test code = UA <=1.0 mg/dL 0.1-1.0 Urobilinogen) [facility] AND [id number] 18:46:00 Test Item Value Reference Range Interpretation Comments UA Sq Epi (test code = UA Sq Epi) None Seen [facility] AND [id number] 18:46:00 Test Item Value Reference Range Interpretation Comments UA Leuk Est (test Negative (07/22/14 1:46 code = UA Leuk Est) PM) [facility] AND [id number] 18:46:00 Test Item Value Reference Range Interpretation Comments UA Nitrite (test code Negative (07/22/14 1:46 = UA Nitrite) PM) [facility] AND [id number] 18:46:00 Test Item Value Reference Range Interpretation Comments UA Blood (test code = Negative (07/22/14 1:46 UA Blood) PM) [facility] [id number] 18:46:00 Test Item Value Reference Range Interpretation Comments UA Ketones (test code = UA Negative mg/dL Ketones) [facility] [id number] 18:46:00 Test Item Value Reference Range Interpretation Comments UA Bili (test code = Negative *NA*(07/22/14 UA Bili) 1:46 PM) [facility] [id number] 18:46:00 Test Item Value Reference Range Interpretation Comments UA Bacteria (test code = UA Occasional /HPF Bacteria) [facility] [id number] 18:46:00 Test Item Value Reference Range Interpretation Comments UA RBC (test code = no gt See_Comment [Automa elizabeth message] The UA RBC) system which ge nerated this result transmit elizabeth reference range : <=2. The reference range was not used to interpr et this result as margaret l/abnormal. [facility] [id number] 18:46:00 Test Item Value Reference Range Interpretation Comments UA WBC (test code = 1 See_Comment [Automa elizabeth message] The UA WBC) system which ge nerated this result transmit elizabeth reference range : <=5. The reference range was not used to interpr et this result as margaret l/abnormal. [facility] [id number] 18:46:00 Test Item Value Reference Range Interpretation Comments UA Glucose (test code = UA Glucose) 30 mg/dL [facility] [id number] 18:46:00 Test Item Value Reference Range Interpretation Comments UA Protein (test code = UA Negative mg/dL Protein) [facility] [id number] 18:46:00 Test Item Value Reference Range Interpretation Comments UA pH (test code = UA pH) 6.5 5.0-8.0 [facility] [id number] 18:46:00 Test Item Value Reference Range Interpretation Comments UA Turbidity (test code = Clear (07/22/14 1:46 UA Turbidity) PM) [facility] [id number] 18:46:00 Test Item Value Reference Range Interpretation Comments UA Spec Grav (test code = UA Spec Grav) 1.010 [facility] [id number] 18:46:00 Test Item Value Reference Range Interpretation Comments UA Color (test code = Light Yellow UA Color) *NA*(07/22/14 1:46 PM) [facility] CenterannCHEM [id number] 18:46:00 Test Item Value Reference Range Interpretation Comments Magnesium Lvl (test code = Magnesium 1.8 1.8-2.4 Lvl) [facility] OfhulhbXWFXCPRLFCSJ4193-82-55 18:46:00 Test Item Value Reference Range Interpretation Comments AGAP (test code = AGAP) 13.2 10.0-20.0 [facility] WldxajgCHMLJXOAUWMP6242-21-67 18:46:00 Test Item Value Reference Range Interpretation Comments B/C Ratio (test code = B/C Ratio) 18 6-25 [facility] HospitalLmysfslBDACHBFIRVNA7463-50-48 18:46:00 Test Item Value Reference Range Interpretation Comments A/G Ratio (test code = A/G Ratio) 1.1 0.7-1.6 [facility] HospitalObnqmboWHQCPGUYVOKG7270-43-01 18:46:00 Test Item Value Reference Range Interpretation Comments Globulin (test code = Globulin) 3.3 2.0-4.0 [facility] HospitalRrmsmxsFUBSLOYPOIYH2484-73-45 18:46:00 Test Item Value Reference Range Interpretation Comments eGFR (test code = eGFR) 99 [facility] HospitalBrzunjoWGQOIZECXTVQ9951-68-91 18:46:00 Test Item Value Reference Range Interpretation Comments Calcium Lvl (test code = Calcium Lvl) 9.0 8.5-10.5 [facility] HospitalTujjchvBOPOYLZVENWZ3212-58-47 18:46:00 Test Item Value Reference Range Interpretation Comments Chloride Lvl (test code = Chloride Lvl) 106 95-109 [facility] HospitalNgelnsrYUYWWSFUGWNI2950-31-87 18:46:00 Test Item Value Reference Range Interpretation Comments Creatinine Lvl (test code = Creatinine 0.9 0.5-1.4 Lvl) [facility] HospitalOoyxigrDARLEANDRMCY4495-89-67 18:46:00 Test Item Value Reference Range Interpretation Comments Potassium Lvl (test code = Potassium 4.2 3.5-5.1 Lvl) [facility] HospitalBkduqexOPSFKFWMQSPH7267-87-41 18:46:00 Test Item Value Reference Range Interpretation Comments Sodium Lvl (test code = Sodium Lvl) 139 135-145 [facility] HospitalFsvfbkdIFOPYRNOCMOJ1425-96-62 18:46:00 Test Item Value Reference Range Interpretation Comments CO2 (test code = CO2) 24 24-32 [facility] HospitalYcppbekGGXQLDUPGNKP5477-03-33 18:46:00 Test Item Value Reference Range Interpretation Comments BUN (test code = BUN) 16 7-22 [facility] HospitalSlykbcmHWQWRCEPJBMS9966-76-11 18:46:00 Test Item Value Reference Range Interpretation Comments Glucose Lvl (test code = Glucose Lvl) 141 70-99 [facility] HospitalJraxtxyORJHYSQWZGTA5181-09-61 18:46:00 Test Item Value Reference Range Interpretation Comments Albumin Lvl (test code = Albumin Lvl) 3.6 3.5-5.0 [facility] HospitalNrgrjiiRILSMKSOUEIV7748-42-55 18:46:00 Test Item Value Reference Range Interpretation Comments Alk Phos (test code = Alk Phos) 65 39-136 [facility] HospitalHuptdiiQNRZGFFVVBRF5892-30-89 18:46:00 Test Item Value Reference Range Interpretation Comments Bili Total (test code = Bili Total) 0.3 0.2-1.3 [facility] HospitalLpymavvQMPLTVTVZMVR7677-11-17 18:46:00 Test Item Value Reference Range Interpretation Comments ALT (test code = ALT) 100 See_Comment [Auto mated message] The system which ge nerated this result transmit elizabeth reference range : <=65. The reference range was not used to interpr et this result as margaret l/abnormal. [facility] HospitalZlebqndAZMGBCPNQKDX4249-92-19 18:46:00 Test Item Value Reference Range Interpretation Comments AST (test code = AST) 53 See_Comment [Auto mated message] The system which ge nerated this result transmit elizabeth reference range : <=37. The reference range was not used to interpr et this result as margaret l/abnormal. [facility] HospitalRqfrycbRICFEXRBJZMH1037-08-97 18:46:00 Test Item Value Reference Range Interpretation Comments Total Protein (test code = Total 6.9 6.4-8.4 Protein) [facility] CenterLvhszhkNGLIHFNODQ1038-03-06 18:46:00 Test Item Value Reference Range Interpretation Comments Eosinophils (test code = 4.2 See_Comment [A utomated message] The Eosinophils) system which ge nerated this result tra nsmitted reference range : <=4.0. The reference r mitra was not used to int erpret this result as normal/abnormal . [facility] CenterRcijtzmRUOJVZWDLE2297-86-24 18:46:00 Test Item Value Reference Range Interpretation Comments Segs (test code = Segs) 56.4 45.0-75.0 [facility] CenterVxbfoucNEHGUWCNZU0897-66-90 18:46:00 Test Item Value Reference Range Interpretation Comments Monocytes (test code = Monocytes) 10.3 2.0-12.0 [facility] CenterYqcolgzYFBBDVELJM8666-81-05 18:46:00 Test Item Value Reference Range Interpretation Comments Lymphocytes (test code = Lymphocytes) 28.0 20.0-40.0 [facility] CenterLbufbnrDKJPQBAJZM0738-21-00 18:46:00 Test Item Value Reference Range Interpretation Comments Monocytes # (test code 0.5 See_Comment [Aut omated message] The = Monocytes #) system which generated this result tra nsmitted reference range : <=0.8. The reference r mitra was not used to int erpret this result as normal/abnormal . [facility] CenterJfdwnhcZBGVRUELXG4378-81-01 18:46:00 Test Item Value Reference Range Interpretation Comments Basophils (test code = 1.1 See_Comment [Aut omated message] The Basophils) system which ge nerated this result tra nsmitted reference range : <=1.0. The reference r mitra was not used to int erpret this result as normal/abnormal . [facility] CenterNgmdnbtIIDSUIEJJY8909-72-83 18:46:00 Test Item Value Reference Range Interpretation Comments Lymphocytes # (test code = Lymphocytes 1.5 1.0-5.5 #) [facility] CenterMmnnbnuMHKIFWOZUF6440-35-69 18:46:00 Test Item Value Reference Range Interpretation Comments Segs-Bands # (test code = Segs-Bands #) 2.9 1.5-8.1 [facility] CenterCgghrzdPHQEKQMNCC3907-15-94 18:46:00 Test Item Value Reference Range Interpretation Comments Eosinophils # (test code 0.2 See_Comment [A utomated message] The = Eosinophils #) system whic h generated this result tra nsmitted reference range : <=0.5. The reference r mitra was not used to int erpret this result as normal/abnormal . [facility] CenterWipyuncFYUXYMFEYA5954-42-38 18:46:00 Test Item Value Reference Range Interpretation Comments Basophils # (test code 0.1 See_Comment [Aut omated message] The = Basophils #) system which generated this result tra nsmitted reference range : <=0.2. The reference r mtira was not used to int erpret this result as normal/abnormal . [facility] CenterIlbpaxvRPBVNTAFER3135-45-53 18:46:00 Test Item Value Reference Range Interpretation Comments PT (test code = PT) 11.2 s 12.0-14.7 [facility] CenterFuuqyopHNKBFQSJFZ7108-88-70 18:46:00 Test Item Value Reference Range Interpretation Comments INR (test code = INR) 0.82 0.85-1.17 [facility] CenterWtfiknyLAHGKZZVVN6753-78-63 18:46:00 Test Item Value Reference Range Interpretation Comments PTT (test code = PTT) 28.6 s 22.9-35.8 [facility]zvxopiCBEJPTEUKY9064-95-68 18:46:00 Test Item Value Reference Range Interpretation Comments MPV (test code = MPV) 8.1 7.4-10.4 [facility] SystemYdseekhRSPORXBYMV9260-98-50 18:46:00 Test Item Value Reference Range Interpretation Comments Platelet (test code = Platelet) 301 133-450 [facility] SystemEaligwyLCIQALOGTZ4611-06-39 18:46:00 Test Item Value Reference Range Interpretation Comments RDW (test code = RDW) 14.5 11.5-14.5 [facility] SystemKjorzqfTKELFSRYZE0892-08-81 18:46:00 Test Item Value Reference Range Interpretation Comments RBC (test code = RBC) 4.84 4.70-6.10 [facility] SystemCthppfsBSCJICIRFZ4073-48-09 18:46:00 Test Item Value Reference Range Interpretation Comments Hgb (test code = Hgb) 14.4 14.0-18.0 [facility] SystemYbzyfftUWWVWTASSI8035-96-16 18:46:00 Test Item Value Reference Range Interpretation Comments WBC (test code = WBC) 5.2 3.7-10.4 [facility]jjbkHLFGVYSMCQ7827-09-62 18:46:00 Test Item Value Reference Range Interpretation Comments MCH (test code = MCH) 29.8 pg 27.0-31.0 [facility]NvxzaqyPADTJORUGJ2720-80-58 18:46:00 Test Item Value Reference Range Interpretation Comments MCV (test code = MCV) 92.0 80.0-94.0 [facility] CenterLwpremtPCLDUKHJSX1133-68-88 18:46:00 Test Item Value Reference Range Interpretation Comments Hct (test code = Hct) 44.5 42.0-54.0 [facility]DcuzxjpDHVKNNNPPN4044-77-29 18:46:00 Test Item Value Reference Range Interpretation Comments MCHC (test code = MCHC) 32.4 32.0-36.0 [facility] 18:46:00 Test Item Value Reference Range Interpretation Comments [place]-Hep C Ab (test Negative *NA*(07/22/14 code = [place]-Hep C 1:46 PM) Ab) [facility] AND [id number] 18:46:00 Test Item Value Reference Range Interpretation Comments UA Urobilinogen (test code = UA <=1.0 mg/dL 0.1-1.0 Urobilinogen) [facility] AND [id number] 18:46:00 Test Item Value Reference Range Interpretation Comments UA Sq Epi (test code = UA Sq Epi) None Seen [facility] AND [id number] 18:46:00 Test Item Value Reference Range Interpretation Comments UA Leuk Est (test Negative (07/22/14 1:46 code = UA Leuk Est) PM) [facility] AND [id number] 18:46:00 Test Item Value Reference Range Interpretation Comments UA Nitrite (test code Negative (07/22/14 1:46 = UA Nitrite) PM) [facility] AND [id number] 18:46:00 Test Item Value Reference Range Interpretation Comments UA Blood (test code = Negative (07/22/14 1:46 UA Blood) PM) [facility] AND [id number] 18:46:00 Test Item Value Reference Range Interpretation Comments UA Ketones (test code = UA Negative mg/dL Ketones) [facility] AND [id number] 18:46:00 Test Item Value Reference Range Interpretation Comments UA Bili (test code = Negative *NA*(07/22/14 UA Bili) 1:46 PM) [facility] AND [id number] 18:46:00 Test Item Value Reference Range Interpretation Comments UA Bacteria (test code = UA Occasional /HPF Bacteria) [facility] AND [id number] 18:46:00 Test Item Value Reference Range Interpretation Comments UA RBC (test code = no gt See_Comment [Automa elizabeth message] The UA RBC) system which ge nerated this result transmit elizabeth reference range : <=2. The reference range was not used to interpr et this result as margaret l/abnormal. [facility] AND [id number] 18:46:00 Test Item Value Reference Range Interpretation Comments UA WBC (test code = 1 See_Comment [Automa elizabeth message] The UA WBC) system which ge nerated this result transmit elizabeth reference range : <=5. The reference range was not used to interpr et this result as margaret l/abnormal. [facility] AND [id number] 18:46:00 Test Item Value Reference Range Interpretation Comments UA Glucose (test code = UA Glucose) 30 mg/dL [facility] AND [id number] 18:46:00 Test Item Value Reference Range Interpretation Comments UA Protein (test code = UA Negative mg/dL Protein) [facility] AND [id number] 18:46:00 Test Item Value Reference Range Interpretation Comments UA pH (test code = UA pH) 6.5 5.0-8.0 [facility] AND [id number] 18:46:00 Test Item Value Reference Range Interpretation Comments UA Turbidity (test code = Clear (07/22/14 1:46 UA Turbidity) PM) [facility] AND [id number] 18:46:00 Test Item Value Reference Range Interpretation Comments UA Spec Grav (test code = UA Spec Grav) 1.010 [facility] AND [id number] 18:46:00 Test Item Value Reference Range Interpretation Comments UA Color (test code = Light Yellow UA Color) *NA*(07/22/14 1:46 PM) [facility] [id number] 18:46:00 Test Item Value Reference Range Interpretation Comments Magnesium Lvl (test code = Magnesium 1.8 1.8-2.4 Lvl) [facility] HospitalEvizmekYKRABCYDUKKO3636-55-53 18:46:00 Test Item Value Reference Range Interpretation Comments AGAP (test code = AGAP) 13.2 10.0-20.0 [facility] HospitalLvexnvlIQPKAQOTSDGC5977-52-20 18:46:00 Test Item Value Reference Range Interpretation Comments B/C Ratio (test code = B/C Ratio) 18 6-25 [facility] HospitalXqfqehvPIYVLDRJHMVH5919-22-79 18:46:00 Test Item Value Reference Range Interpretation Comments A/G Ratio (test code = A/G Ratio) 1.1 0.7-1.6 [facility] Hospital[id number] 18:46:00 Test Item Value Reference Range Interpretation Comments Globulin (test code = Globulin) 3.3 2.0-4.0 [facility] HospitalKhjxdwuKDBXNYCYXHQI1781-41-78 18:46:00 Test Item Value Reference Range Interpretation Comments eGFR (test code = eGFR) 99 [facility] HospitalDxbdrfsFVXDUVUXUWEU0998-45-70 18:46:00 Test Item Value Reference Range Interpretation Comments Calcium Lvl (test code = Calcium Lvl) 9.0 8.5-10.5 [facility] HospitalPqfsrxgEUIGFDFTBUYR0041-53-37 18:46:00 Test Item Value Reference Range Interpretation Comments Chloride Lvl (test code = Chloride Lvl) 106 95-109 [facility] HospitalBfeufbnONJYZOWFAUBO2007-65-54 18:46:00 Test Item Value Reference Range Interpretation Comments Creatinine Lvl (test code = Creatinine 0.9 0.5-1.4 Lvl) [facility] HospitalJtssntfRZJRMNYPXVKD6758-21-13 18:46:00 Test Item Value Reference Range Interpretation Comments Potassium Lvl (test code = Potassium 4.2 3.5-5.1 Lvl) [facility] HospitalPshigrjEYTIMWTHAMJY5336-23-13 18:46:00 Test Item Value Reference Range Interpretation Comments Sodium Lvl (test code = Sodium Lvl) 139 135-145 [facility] HospitalBygmxmaFDUZQTNKFMLN1497-82-54 18:46:00 Test Item Value Reference Range Interpretation Comments CO2 (test code = CO2) 24 24-32 [facility] HospitalXmtgnbbIQIDIRFMAJMN9048-86-14 18:46:00 Test Item Value Reference Range Interpretation Comments BUN (test code = BUN) 16 7-22 [facility] HospitalZdvpofgHUICLGPKWFPX3311-66-02 18:46:00 Test Item Value Reference Range Interpretation Comments Glucose Lvl (test code = Glucose Lvl) 141 70-99 [facility] HospitalNdylujbJSSHLYGVVJSP8197-54-04 18:46:00 Test Item Value Reference Range Interpretation Comments Albumin Lvl (test code = Albumin Lvl) 3.6 3.5-5.0 [facility] HospitalRwkqwgpGFOBFSMRRRXF1272-04-05 18:46:00 Test Item Value Reference Range Interpretation Comments Alk Phos (test code = Alk Phos) 65 39-136 [facility] HospitalIyzzlenJJISWVLOFSWG3732-72-99 18:46:00 Test Item Value Reference Range Interpretation Comments Bili Total (test code = Bili Total) 0.3 0.2-1.3 [facility] HospitalUbzavmaFFAUSTOYHMPP3490-97-73 18:46:00 Test Item Value Reference Range Interpretation Comments ALT (test code = ALT) 100 See_Comment [Auto mated message] The system which ge nerated this result transmit elizabeth reference range : <=65. The reference range was not used to interpr et this result as margaret l/abnormal. [facility] HospitalGqajatxUQTXLQPKYDSU0632-14-21 18:46:00 Test Item Value Reference Range Interpretation Comments AST (test code = AST) 53 See_Comment [Auto mated message] The system which ge nerated this result transmit elizabeth reference range : <=37. The reference range was not used to interpr et this result as margaret l/abnormal. [facility] HospitalWwbvmdaPTFTELXLLSSQ8448-69-02 18:46:00 Test Item Value Reference Range Interpretation Comments Total Protein (test code = Total 6.9 6.4-8.4 Protein) [facility] CenterHxhrqsfQLSEPYMXPO0971-63-48 18:46:00 Test Item Value Reference Range Interpretation Comments Eosinophils (test code = 4.2 See_Comment [A utomated message] The Eosinophils) system which ge nerated this result tra nsmitted reference range : <=4.0. The reference r mitra was not used to int erpret this result as normal/abnormal . [facility] CenterVhhviblNDFHFPELCH2889-94-11 18:46:00 Test Item Value Reference Range Interpretation Comments Segs (test code = Segs) 56.4 45.0-75.0 [facility] CenterNodixlyPXFWAQLRAG9121-09-32 18:46:00 Test Item Value Reference Range Interpretation Comments Monocytes (test code = Monocytes) 10.3 2.0-12.0 [facility] CenterTucgrxqSEHLWGRUWT7511-58-60 18:46:00 Test Item Value Reference Range Interpretation Comments Lymphocytes (test code = Lymphocytes) 28.0 20.0-40.0 [facility] CenterIjmvrtuEEVFYJQHCB7554-63-87 18:46:00 Test Item Value Reference Range Interpretation Comments Monocytes # (test code 0.5 See_Comment [Aut omated message] The = Monocytes #) system which generated this result tra nsmitted reference range : <=0.8. The reference r mitra was not used to int erpret this result as normal/abnormal . [facility] CenterEstcpizEFQLFFMNWT8545-24-88 18:46:00 Test Item Value Reference Range Interpretation Comments Basophils (test code = 1.1 See_Comment [Aut omated message] The Basophils) system which ge nerated this result tra nsmitted reference range : <=1.0. The reference r mitra was not used to int erpret this result as normal/abnormal . [facility] CenterQqemisxFIGWELUNLO3731-47-90 18:46:00 Test Item Value Reference Range Interpretation Comments Lymphocytes # (test code = Lymphocytes 1.5 1.0-5.5 #) [facility] CenterJjqxsvmWXPBASUBCH7727-41-20 18:46:00 Test Item Value Reference Range Interpretation Comments Segs-Bands # (test code = Segs-Bands #) 2.9 1.5-8.1 [facility] CenterPebgtixYUYYBBRNPG6035-02-41 18:46:00 Test Item Value Reference Range Interpretation Comments Eosinophils # (test code 0.2 See_Comment [A utomated message] The = Eosinophils #) system whic h generated this result tra nsmitted reference range : <=0.5. The reference r mitra was not used to int erpret this result as normal/abnormal . [facility] CenterFznwtzsFTTMMUQEZI2056-85-17 18:46:00 Test Item Value Reference Range Interpretation Comments Basophils # (test code 0.1 See_Comment [Aut omated message] The = Basophils #) system which generated this result tra nsmitted reference range : <=0.2. The reference r mitra was not used to int erpret this result as normal/abnormal . [facility] CenterUtpdkfcUOMTVZZUJB1976-83-37 18:46:00 Test Item Value Reference Range Interpretation Comments PT (test code = PT) 11.2 s 12.0-14.7 [facility] CenterXejvgjbDXMDMZYJYY0945-53-33 18:46:00 Test Item Value Reference Range Interpretation Comments INR (test code = INR) 0.82 0.85-1.17 [facility] CenterIjhmoanJNKGRFKPQX1881-72-60 18:46:00 Test Item Value Reference Range Interpretation Comments PTT (test code = PTT) 28.6 s 22.9-35.8 [facility] CenterIqokaiaJBYEMGQOOY9441-55-50 18:46:00 Test Item Value Reference Range Interpretation Comments MPV (test code = MPV) 8.1 7.4-10.4 [facility] CenterHmmxogtTZFCAKPSWQ6057-96-88 18:46:00 Test Item Value Reference Range Interpretation Comments Platelet (test code = Platelet) 301 133-450 [facility] CenterRegovrfTKQWPUYXMX8557-18-10 18:46:00 Test Item Value Reference Range Interpretation Comments RDW (test code = RDW) 14.5 11.5-14.5 [facility] CenterCmontauNZFQNQVMHM4160-05-10 18:46:00 Test Item Value Reference Range Interpretation Comments RBC (test code = RBC) 4.84 4.70-6.10 [facility]vhjqfrXMIFGPXKPU9664-02-16 18:46:00 Test Item Value Reference Range Interpretation Comments Hgb (test code = Hgb) 14.4 14.0-18.0 [facility] SystemPbkzaenIMBLWMHZHS2965-45-63 18:46:00 Test Item Value Reference Range Interpretation Comments WBC (test code = WBC) 5.2 3.7-10.4 [facility] SystemKppsilsYKLHDYUYTV5969-01-92 18:46:00 Test Item Value Reference Range Interpretation Comments MCH (test code = MCH) 29.8 pg 27.0-31.0 [facility] CenterBauocopPYQNOSYHHY4374-34-65 18:46:00 Test Item Value Reference Range Interpretation Comments MCV (test code = MCV) 92.0 80.0-94.0 [facility] SystemRkotqazTLKMFEMLGA3390-86-97 18:46:00 Test Item Value Reference Range Interpretation Comments Hct (test code = Hct) 44.5 42.0-54.0 [facility] CenterKktbglaTSVPDZJCBM4245-74-30 18:46:00 Test Item Value Reference Range Interpretation Comments MCHC (test code = MCHC) 32.4 32.0-36.0 [facility] CenterQdeylirNBMLEESRAO2321-28-07 18:46:00 Test Item Value Reference Range Interpretation Comments [place]-Hep C Ab (test Negative *NA*(07/22/14 code = [place]-Hep C 1:46 PM) Ab) [facility] AND [id number] 18:46:00 Test Item Value Reference Range Interpretation Comments UA Urobilinogen (test code = UA <=1.0 mg/dL 0.1-1.0 Urobilinogen) [facility] [id number] 18:46:00 Test Item Value Reference Range Interpretation Comments UA Sq Epi (test code = UA Sq Epi) None [facility]en [facility] [id number] 18:46:00 Test Item Value Reference Range Interpretation Comments UA Leuk Est (test Negative (07/22/14 1:46 code = UA Leuk Est) PM) [facility] [id number] 18:46:00 Test Item Value Reference Range Interpretation Comments UA Nitrite (test code Negative (07/22/14 1:46 = UA Nitrite) PM) [facility] AND [id number] 18:46:00 Test Item Value Reference Range Interpretation Comments UA Blood (test code = Negative (07/22/14 1:46 UA Blood) PM) [facility] AND [id number] 18:46:00 Test Item Value Reference Range Interpretation Comments UA Ketones (test code = UA Negative mg/dL Ketones) [facility] AND [id number] 18:46:00 Test Item Value Reference Range Interpretation Comments UA Bili (test code = Negative *NA*(07/22/14 UA Bili) 1:46 PM) [facility] AND [id number] 18:46:00 Test Item Value Reference Range Interpretation Comments UA Bacteria (test code = UA Occasional /HPF Bacteria) [facility] AND [id number] 18:46:00 Test Item Value Reference Range Interpretation Comments UA RBC (test code = no gt See_Comment [Automa elizabeth message] The UA RBC) system which ge nerated this result transmit elizabeth reference range : <=2. The reference range was not used to interpr et this result as margaret l/abnormal. [facility] AND [id number] 18:46:00 Test Item Value Reference Range Interpretation Comments UA WBC (test code = 1 See_Comment [Automa elizabeth message] The UA WBC) system which ge nerated this result transmit elizabeth reference range : <=5. The reference range was not used to interpr et this result as margaret l/abnormal. [facility] AND [id number] 18:46:00 Test Item Value Reference Range Interpretation Comments UA Glucose (test code = UA Glucose) 30 mg/dL [facility] AND [id number] 18:46:00 Test Item Value Reference Range Interpretation Comments UA Protein (test code = UA Negative mg/dL Protein) [facility] AND [id number] 18:46:00 Test Item Value Reference Range Interpretation Comments UA pH (test code = UA pH) 6.5 5.0-8.0 [facility] AND [id number] 18:46:00 Test Item Value Reference Range Interpretation Comments UA Turbidity (test code = Clear (07/22/14 1:46 UA Turbidity) PM) [facility] [id number] 18:46:00 Test Item Value Reference Range Interpretation Comments UA Spec Grav (test code = UA Spec Grav) 1.010 [facility] AND [id number] 18:46:00 Test Item Value Reference Range Interpretation Comments UA Color (test code = Light Yellow UA Color) *NA*(07/22/14 1:46 PM) [facility] [id number] 18:46:00 Test Item Value Reference Range Interpretation Comments Magnesium Lvl (test code = Magnesium 1.8 1.8-2.4 Lvl) [facility] HospitalDuvcoxgAUKTXJFWFPGD8740-32-32 18:46:00 Test Item Value Reference Range Interpretation Comments AGAP (test code = AGAP) 13.2 10.0-20.0 [facility] HospitalDjjrmzzLZPDADIHJOFV2379-93-57 18:46:00 Test Item Value Reference Range Interpretation Comments B/C Ratio (test code = B/C Ratio) 18 6-25 [facility] HospitalOqmqmmxGVCFZIPCURUZ3891-18-07 18:46:00 Test Item Value Reference Range Interpretation Comments A/G Ratio (test code = A/G Ratio) 1.1 0.7-1.6 [facility] HospitalMheqowtRINAJQLYMINS6939-41-91 18:46:00 Test Item Value Reference Range Interpretation Comments Globulin (test code = Globulin) 3.3 2.0-4.0 [facility] HospitalNtwuumpTSQUEMSBYMWZ3243-35-18 18:46:00 Test Item Value Reference Range Interpretation Comments eGFR (test code = eGFR) 99 [facility] HospitalLjaqshbAVVYPJFLFCID0029-48-50 18:46:00 Test Item Value Reference Range Interpretation Comments Calcium Lvl (test code = Calcium Lvl) 9.0 8.5-10.5 [facility] HospitalMcazlwwSSIHAQTUTYXG5375-98-37 18:46:00 Test Item Value Reference Range Interpretation Comments Chloride Lvl (test code = Chloride Lvl) 106 95-109 [facility] HospitalOnixcqxWKUBDBSMRNZF0262-75-49 18:46:00 Test Item Value Reference Range Interpretation Comments Creatinine Lvl (test code = Creatinine 0.9 0.5-1.4 Lvl) [facility] HospitalFuohuuqVVDVPXVXXFYY2074-29-78 18:46:00 Test Item Value Reference Range Interpretation Comments Potassium Lvl (test code = Potassium 4.2 3.5-5.1 Lvl) [facility] HospitalWbesxgnJNLMURVARRJU2053-77-05 18:46:00 Test Item Value Reference Range Interpretation Comments Sodium Lvl (test code = Sodium Lvl) 139 135-145 [facility] HospitalUwbtaziXNLQEVSLKXFW1141-30-40 18:46:00 Test Item Value Reference Range Interpretation Comments CO2 (test code = CO2) 24 24-32 [facility] HospitalJegndkiEQIRNPAEAUJK3653-39-46 18:46:00 Test Item Value Reference Range Interpretation Comments BUN (test code = BUN) 16 7-22 [facility] HospitalDetkmlgRZAHGZSOFOLU6639-24-57 18:46:00 Test Item Value Reference Range Interpretation Comments Glucose Lvl (test code = Glucose Lvl) 141 70-99 [facility] HospitalIiqliucHWWOQSEGENKT7219-38-43 18:46:00 Test Item Value Reference Range Interpretation Comments Albumin Lvl (test code = Albumin Lvl) 3.6 3.5-5.0 [facility] HospitalScumwheCUXQSYTRHAAN2198-82-84 18:46:00 Test Item Value Reference Range Interpretation Comments Alk Phos (test code = Alk Phos) 65 39-136 [facility] HospitalQmlnegrFYETLDYABERJ5907-71-55 18:46:00 Test Item Value Reference Range Interpretation Comments Bili Total (test code = Bili Total) 0.3 0.2-1.3 [facility] HospitalZbdvkqjYFTJLIENDWSB9781-11-31 18:46:00 Test Item Value Reference Range Interpretation Comments ALT (test code = ALT) 100 See_Comment [Auto mated message] The system which ge nerated this result transmit elizabeth reference range : <=65. The reference range was not used to interpr et this result as margaret l/abnormal. [facility] HospitalQmhmaliJHXQSAJQOYFH3765-63-28 18:46:00 Test Item Value Reference Range Interpretation Comments AST (test code = AST) 53 See_Comment [Auto mated message] The system which ge nerated this result transmit elizabeth reference range : <=37. The reference range was not used to interpr et this result as margaret l/abnormal. [facility] HospitalWytipxlWDIPHHEEVHEO1060-46-13 18:46:00 Test Item Value Reference Range Interpretation Comments Total Protein (test code = Total 6.9 6.4-8.4 Protein) [facility] CenterDpyjptxCDYMWZILBT2230-38-43 18:46:00 Test Item Value Reference Range Interpretation Comments Eosinophils (test code = 4.2 See_Comment [A utomated message] The Eosinophils) system which ge nerated this result tra nsmitted reference range : <=4.0. The reference r mitra was not used to int erpret this result as normal/abnormal . [facility] CenterKdjhvbkDTSVMYFJQM6415-07-37 18:46:00 Test Item Value Reference Range Interpretation Comments Segs (test code = Segs) 56.4 45.0-75.0 [facility] CenterMjprunwMOEPNBPZTQ5940-45-98 18:46:00 Test Item Value Reference Range Interpretation Comments Monocytes (test code = Monocytes) 10.3 2.0-12.0 [facility] CenterKjrizhxUMAMXLERMK8374-45-21 18:46:00 Test Item Value Reference Range Interpretation Comments Lymphocytes (test code = Lymphocytes) 28.0 20.0-40.0 [facility] CenterKeequehOCTCICKGOH5351-89-91 18:46:00 Test Item Value Reference Range Interpretation Comments Monocytes # (test code 0.5 See_Comment [Aut omated message] The = Monocytes #) system which generated this result tra nsmitted reference range : <=0.8. The reference r mitra was not used to int erpret this result as normal/abnormal . [facility] CenterQxvzbeySYNRVYPGJS5963-86-02 18:46:00 Test Item Value Reference Range Interpretation Comments Basophils (test code = 1.1 See_Comment [Aut omated message] The Basophils) system which ge nerated this result tra nsmitted reference range : <=1.0. The reference r mitra was not used to int erpret this result as normal/abnormal . [facility] CenterOeaigmkSFNXYFGRUH4662-08-23 18:46:00 Test Item Value Reference Range Interpretation Comments Lymphocytes # (test code = Lymphocytes 1.5 1.0-5.5 #) [facility] CenterEjroeldPZVCNBEWIG4578-54-45 18:46:00 Test Item Value Reference Range Interpretation Comments Segs-Bands # (test code = Segs-Bands #) 2.9 1.5-8.1 [facility] CenterNwiduruKMZUQUONTE4762-19-84 18:46:00 Test Item Value Reference Range Interpretation Comments Eosinophils # (test code 0.2 See_Comment [A utomated message] The = Eosinophils #) system whic h generated this result tra nsmitted reference range : <=0.5. The reference r mitra was not used to int erpret this result as normal/abnormal . [facility] CenterJiiynmjIWBXFIXLYA7147-31-04 18:46:00 Test Item Value Reference Range Interpretation Comments Basophils # (test code 0.1 See_Comment [Aut omated message] The = Basophils #) system which generated this result tra nsmitted reference range : <=0.2. The reference r mitra was not used to int erpret this result as normal/abnormal . [facility] CenterLnjujwwAXSLVLAFSY7546-12-99 18:46:00 Test Item Value Reference Range Interpretation Comments PT (test code = PT) 11.2 s 12.0-14.7 [facility] CenterUngkjtoCXYOXMLORY5282-13-47 18:46:00 Test Item Value Reference Range Interpretation Comments INR (test code = INR) 0.82 0.85-1.17 [facility] CenterBrmggyqKDPBSEGKGN9227-37-55 18:46:00 Test Item Value Reference Range Interpretation Comments PTT (test code = PTT) 28.6 s 22.9-35.8 [facility] CenterNnwozebBMZYXRPCCT9390-51-99 18:46:00 Test Item Value Reference Range Interpretation Comments MPV (test code = MPV) 8.1 7.4-10.4 [facility] CenterJdzgznuDMDDAXTRNR4169-65-41 18:46:00 Test Item Value Reference Range Interpretation Comments Platelet (test code = Platelet) 301 133-450 [facility] CenterWzskzckFJJHNVIQEQ5439-88-52 18:46:00 Test Item Value Reference Range Interpretation Comments RDW (test code = RDW) 14.5 11.5-14.5 [facility] CenterIocjqzgHGRFTCGJXZ8186-32-87 18:46:00 Test Item Value Reference Range Interpretation Comments RBC (test code = RBC) 4.84 4.70-6.10 [facility] CenterHiahebmSENFTZZQQI1492-44-79 18:46:00 Test Item Value Reference Range Interpretation Comments Hgb (test code = Hgb) 14.4 14.0-18.0 [facility] CenterBvvcbysEVNABGUUMI1261-84-34 18:46:00 Test Item Value Reference Range Interpretation Comments WBC (test code = WBC) 5.2 3.7-10.4 [facility] CenterJhflnqtZPFIGTUGIP7955-06-65 18:46:00 Test Item Value Reference Range Interpretation Comments MCH (test code = MCH) 29.8 pg 27.0-31.0 [facility] CenterOlvtjbsPCWYFYGWPC2143-12-69 18:46:00 Test Item Value Reference Range Interpretation Comments MCV (test code = MCV) 92.0 80.0-94.0 [facility] VwwpvxxRDUOKKXILE8662-12-41 18:46:00 Test Item Value Reference Range Interpretation Comments Hct (test code = Hct) 44.5 42.0-54.0 [facility]QialybpZRSULFFJSR4876-18-69 18:46:00 Test Item Value Reference Range Interpretation Comments MCHC (test code = MCHC) 32.4 32.0-36.0 [facility] CenterIvmpwxsSZXGUSDVOW2996-26-57 18:46:00 Test Item Value Reference Range Interpretation Comments [place]-Hep C Ab (test Negative *NA*(07/22/14 code = [place]-Hep C 1:46 PM) Ab) [facility] AND [id number] 18:46:00 Test Item Value Reference Range Interpretation Comments UA Urobilinogen (test code = UA <=1.0 mg/dL 0.1-1.0 Urobilinogen) [facility] AND [id number] 18:46:00 Test Item Value Reference Range Interpretation Comments UA Sq Epi (test code = UA Sq Epi) None Seen [facility] AND [id number] 18:46:00 Test Item Value Reference Range Interpretation Comments UA Leuk Est (test Negative (07/22/14 1:46 code = UA Leuk Est) PM) [facility] AND [id number] 18:46:00 Test Item Value Reference Range Interpretation Comments UA Nitrite (test code Negative (07/22/14 1:46 = UA Nitrite) PM) [facility] AND [id number] 18:46:00 Test Item Value Reference Range Interpretation Comments UA Blood (test code = Negative (07/22/14 1:46 UA Blood) PM) [facility] AND [id number] 18:46:00 Test Item Value Reference Range Interpretation Comments UA Ketones (test code = UA Negative mg/dL Ketones) [facility] AND [id number] 18:46:00 Test Item Value Reference Range Interpretation Comments UA Bili (test code = Negative *NA*(07/22/14 UA Bili) 1:46 PM) [facility] [id number] 18:46:00 Test Item Value Reference Range Interpretation Comments UA Bacteria (test code = UA Occasional /HPF Bacteria) [facility] [id number] 18:46:00 Test Item Value Reference Range Interpretation Comments UA RBC (test code = no gt See_Comment [Automa elizabeth message] The UA RBC) system which ge nerated this result transmit elizabeth reference range : <=2. The reference range was not used to interpr et this result as margaret l/abnormal. [facility] [id number] 18:46:00 Test Item Value Reference Range Interpretation Comments UA WBC (test code = 1 See_Comment [Automa elizabeth message] The UA WBC) system which ge nerated this result transmit elizabeth reference range : <=5. The reference range was not used to interpr et this result as margaret l/abnormal. [facility] [id number] 18:46:00 Test Item Value Reference Range Interpretation Comments UA Glucose (test code = UA Glucose) 30 mg/dL [facility] AND [id number] 18:46:00 Test Item Value Reference Range Interpretation Comments UA Protein (test code = UA Negative mg/dL Protein) [facility] [id number] 18:46:00 Test Item Value Reference Range Interpretation Comments UA pH (test code = UA pH) 6.5 5.0-8.0 [facility] AND [id number] 18:46:00 Test Item Value Reference Range Interpretation Comments UA Turbidity (test code = Clear (07/22/14 1:46 UA Turbidity) PM) [facility] [id number] 18:46:00 Test Item Value Reference Range Interpretation Comments UA Spec Grav (test code = UA Spec Grav) 1.010 [facility] [id number] 18:46:00 Test Item Value Reference Range Interpretation Comments UA Color (test code = Light Yellow UA Color) *NA*(07/22/14 1:46 PM) [facility]annCHEM [id number] 18:46:00 Test Item Value Reference Range Interpretation Comments Magnesium Lvl (test code = Magnesium 1.8 1.8-2.4 Lvl) [facility] HospitalKtqoqprFFRFIATUTYAR9408-44-68 18:46:00 Test Item Value Reference Range Interpretation Comments AGAP (test code = AGAP) 13.2 10.0-20.0 [facility] HospitalRlhajliMOMMBFFIVUAV5433-94-48 18:46:00 Test Item Value Reference Range Interpretation Comments B/C Ratio (test code = B/C Ratio) 18 6-25 [facility] HospitalNkbuwhqLUHDSKAWHPDJ1201-82-15 18:46:00 Test Item Value Reference Range Interpretation Comments A/G Ratio (test code = A/G Ratio) 1.1 0.7-1.6 [facility] HospitalYxqluuiBVZEHDRQKDYC7198-88-64 18:46:00 Test Item Value Reference Range Interpretation Comments Globulin (test code = Globulin) 3.3 2.0-4.0 [facility] HospitalWqbhznnZSPAOYSEOFCN8179-68-78 18:46:00 Test Item Value Reference Range Interpretation Comments eGFR (test code = eGFR) 99 [facility] HospitalYdgrwpdENMQQHQWSGZQ4074-18-48 18:46:00 Test Item Value Reference Range Interpretation Comments Calcium Lvl (test code = Calcium Lvl) 9.0 8.5-10.5 [facility] HospitalDnoblacDMLVCVIGAKDJ6236-60-90 18:46:00 Test Item Value Reference Range Interpretation Comments Chloride Lvl (test code = Chloride Lvl) 106 95-109 [facility] HospitalFemdeegEGGXKCKEMDEQ8604-96-85 18:46:00 Test Item Value Reference Range Interpretation Comments Creatinine Lvl (test code = Creatinine 0.9 0.5-1.4 Lvl) [facility] HospitalDgcwyraBQJNGPZULEAH6412-13-21 18:46:00 Test Item Value Reference Range Interpretation Comments Potassium Lvl (test code = Potassium 4.2 3.5-5.1 Lvl) [facility] HospitalYnfgfppXXENVMIPROXQ6800-38-19 18:46:00 Test Item Value Reference Range Interpretation Comments Sodium Lvl (test code = Sodium Lvl) 139 135-145 [facility] HospitalGvtkabxROYHZRYNUITG5936-38-91 18:46:00 Test Item Value Reference Range Interpretation Comments CO2 (test code = CO2) 24 24-32 [facility] HospitalIyjpbtkZRQORGOAOHRW2943-14-47 18:46:00 Test Item Value Reference Range Interpretation Comments BUN (test code = BUN) 16 7-22 [facility] HospitalYdcasbnGFKAMJLKJGKH9625-40-66 18:46:00 Test Item Value Reference Range Interpretation Comments Glucose Lvl (test code = Glucose Lvl) 141 70-99 [facility] HospitalWunzobvMTQYDOCPVVDT3950-02-27 18:46:00 Test Item Value Reference Range Interpretation Comments Albumin Lvl (test code = Albumin Lvl) 3.6 3.5-5.0 [facility] HospitalScapxgpTRTVBPNMGGYE5109-36-04 18:46:00 Test Item Value Reference Range Interpretation Comments Alk Phos (test code = Alk Phos) 65 39-136 [facility] HospitalTrbkuasJRNAOAHJNVFG1000-52-32 18:46:00 Test Item Value Reference Range Interpretation Comments Bili Total (test code = Bili Total) 0.3 0.2-1.3 [facility] HospitalAsxytfoJVTZUVOASVVA9778-52-62 18:46:00 Test Item Value Reference Range Interpretation Comments ALT (test code = ALT) 100 See_Comment [Auto mated message] The system which ge nerated this result transmit elizabeth reference range : <=65. The reference range was not used to interpr et this result as margaret l/abnormal. [facility] HospitalHaspwruZRBQSQEBQFGN2660-40-38 18:46:00 Test Item Value Reference Range Interpretation Comments AST (test code = AST) 53 See_Comment [Auto mated message] The system which ge nerated this result transmit elizabeth reference range : <=37. The reference range was not used to interpr et this result as margaret l/abnormal. [facility] HospitalQzuyubiCQCXKULGXRLZ7692-55-64 18:46:00 Test Item Value Reference Range Interpretation Comments Total Protein (test code = Total 6.9 6.4-8.4 Protein) [facility] CenterWfpqlyzNNYPGPBAEL8757-72-13 18:46:00 Test Item Value Reference Range Interpretation Comments Eosinophils (test code = 4.2 See_Comment [A utomated message] The Eosinophils) system which ge nerated this result tra nsmitted reference range : <=4.0. The reference r mitra was not used to int erpret this result as normal/abnormal . [facility] CenterEcsrtcuJIAOYBPEPU1982-97-42 18:46:00 Test Item Value Reference Range Interpretation Comments Segs (test code = Segs) 56.4 45.0-75.0 [facility] CenterYcwmzcyORXBRLTKVC3352-81-80 18:46:00 Test Item Value Reference Range Interpretation Comments Monocytes (test code = Monocytes) 10.3 2.0-12.0 [facility] CenterEulohnrWQXHACENPX9624-69-79 18:46:00 Test Item Value Reference Range Interpretation Comments Lymphocytes (test code = Lymphocytes) 28.0 20.0-40.0 [facility] CenterUifyfruDZYETIXHDR4367-46-19 18:46:00 Test Item Value Reference Range Interpretation Comments Monocytes # (test code 0.5 See_Comment [Aut omated message] The = Monocytes #) system which generated this result tra nsmitted reference range : <=0.8. The reference r mitra was not used to int erpret this result as normal/abnormal . [facility] CenterEpjfqojFXBCHQITMK9061-19-14 18:46:00 Test Item Value Reference Range Interpretation Comments Basophils (test code = 1.1 See_Comment [Aut omated message] The Basophils) system which ge nerated this result tra nsmitted reference range : <=1.0. The reference r mitra was not used to int erpret this result as normal/abnormal . [facility] CenterQpstienYIYMOVDLKY7445-14-63 18:46:00 Test Item Value Reference Range Interpretation Comments Lymphocytes # (test code = Lymphocytes 1.5 1.0-5.5 #) [facility] CenterRhhiaaqTEZFRJJPTY2366-37-11 18:46:00 Test Item Value Reference Range Interpretation Comments Segs-Bands # (test code = Segs-Bands #) 2.9 1.5-8.1 [facility] CenterQmhevcfKYTOMTBHBT4986-10-36 18:46:00 Test Item Value Reference Range Interpretation Comments Eosinophils # (test code 0.2 See_Comment [A utomated message] The = Eosinophils #) system ic h generated this result tra nsmitted reference range : <=0.5. The reference r mitra was not used to int erpret this result as normal/abnormal . [facility] CenterHpvjtarLOIQDQNVAB7611-05-39 18:46:00 Test Item Value Reference Range Interpretation Comments Basophils # (test code 0.1 See_Comment [Aut omated message] The = Basophils #) system which generated this result tra nsmitted reference range : <=0.2. The reference r mitra was not used to int erpret this result as normal/abnormal . [facility] CenterCsyzjcwOBZLDQUTUF5014-95-91 18:46:00 Test Item Value Reference Range Interpretation Comments PT (test code = PT) 11.2 s 12.0-14.7 [facility] CenterFgwvnbtHQNGLOOFRI7609-14-95 18:46:00 Test Item Value Reference Range Interpretation Comments INR (test code = INR) 0.82 0.85-1.17 [facility] CenterLjljjlcZTUPUBGQGM0163-13-29 18:46:00 Test Item Value Reference Range Interpretation Comments PTT (test code = PTT) 28.6 s 22.9-35.8 [facility] CenterJdqglvgBHXQGPMELQ9040-39-02 18:46:00 Test Item Value Reference Range Interpretation Comments MPV (test code = MPV) 8.1 7.4-10.4 [facility] CenterYtfbppzEXNCMJHVKV1408-30-03 18:46:00 Test Item Value Reference Range Interpretation Comments Platelet (test code = Platelet) 301 143-450 [facility] CenterFywccgxNSMJIJQBIH7599-66-00 18:46:00 Test Item Value Reference Range Interpretation Comments RDW (test code = RDW) 14.5 11.5-14.5 [facility] CenterXfzkqcjOUWYDTEWVD4303-88-63 18:46:00 Test Item Value Reference Range Interpretation Comments RBC (test code = RBC) 4.84 4.70-6.10 [facility] CenterYqmlzmxSEKWYJDMOA0598-73-03 18:46:00 Test Item Value Reference Range Interpretation Comments Hgb (test code = Hgb) 14.4 14.0-18.0 [facility] CenterNiojlfaUTBXLEVYRY4413-20-44 18:46:00 Test Item Value Reference Range Interpretation Comments WBC (test code = WBC) 5.2 3.7-10.4 [facility] CenterRlpeyjzWLFLCHILIP2713-19-85 18:46:00 Test Item Value Reference Range Interpretation Comments MCH (test code = MCH) 29.8 pg 27.0-31.0 [facility] CenterSizuzrhACQJJSXFWY7117-68-54 18:46:00 Test Item Value Reference Range Interpretation Comments MCV (test code = MCV) 92.0 80.0-94.0 [facility] CenterAlwpwgcXFVXZZBRGS1074-61-79 18:46:00 Test Item Value Reference Range Interpretation Comments Hct (test code = Hct) 44.5 42.0-54.0 [facility] CenterZijrecaHPDOAPFIKK1115-27-95 18:46:00 Test Item Value Reference Range Interpretation Comments MCHC (test code = MCHC) 32.4 32.0-36.0 [facility] EvbkizdSIHGFUEXKW8287-22-85 18:46:00 Test Item Value Reference Range Interpretation Comments [place]-Hep C Ab (test Negative *NA*(07/22/14 code = [place]-Hep C 1:46 PM) Ab) [facility] [id number] 18:46:00 Test Item Value Reference Range Interpretation Comments UA Urobilinogen (test code = UA <=1.0 mg/dL 0.1-1.0 Urobilinogen) [facility] AND [id number] 18:46:00 Test Item Value Reference Range Interpretation Comments UA Sq Epi (test code = UA Sq Epi) None Seen [facility] AND [id number] 18:46:00 Test Item Value Reference Range Interpretation Comments UA Leuk Est (test Negative (07/22/14 1:46 code = UA Leuk Est) PM) [facility] AND [id number] 18:46:00 Test Item Value Reference Range Interpretation Comments UA Nitrite (test code Negative (07/22/14 1:46 = UA Nitrite) PM) [facility] AND [id number] 18:46:00 Test Item Value Reference Range Interpretation Comments UA Blood (test code = Negative (07/22/14 1:46 UA Blood) PM) [facility]ann[facility] [id number] 18:46:00 Test Item Value Reference Range Interpretation Comments UA Ketones (test code = UA Negative mg/dL Ketones) [facility] AND [id number] 18:46:00 Test Item Value Reference Range Interpretation Comments UA Bili (test code = Negative *NA*(07/22/14 UA Bili) 1:46 PM) [facility] AND [id number] 18:46:00 Test Item Value Reference Range Interpretation Comments UA Bacteria (test code = UA Occasional /HPF Bacteria) [facility] AND [id number] 18:46:00 Test Item Value Reference Range Interpretation Comments UA RBC (test code = no gt See_Comment [Automa elizabeth message] The UA RBC) system which ge nerated this result transmit elizabeth reference range : <=2. The reference range was not used to interpr et this result as margaret l/abnormal. [facility] AND [id number] 18:46:00 Test Item Value Reference Range Interpretation Comments UA WBC (test code = 1 See_Comment [Automa elizabeth message] The UA WBC) system which ge nerated this result transmit elizabeth reference range : <=5. The reference range was not used to interpr et this result as margaret l/abnormal. [facility] AND [id number] 18:46:00 Test Item Value Reference Range Interpretation Comments UA Glucose (test code = UA Glucose) 30 mg/dL [facility] AND [id number] 18:46:00 Test Item Value Reference Range Interpretation Comments UA Protein (test code = UA Negative mg/dL Protein) [facility] AND [id number] 18:46:00 Test Item Value Reference Range Interpretation Comments UA pH (test code = UA pH) 6.5 5.0-8.0 [facility] AND [id number] 18:46:00 Test Item Value Reference Range Interpretation Comments UA Turbidity (test code = Clear (07/22/14 1:46 UA Turbidity) PM) [facility] AND [id number] 18:46:00 Test Item Value Reference Range Interpretation Comments UA Spec Grav (test code = UA Spec Grav) 1.010 [facility] AND [id number] 18:46:00 Test Item Value Reference Range Interpretation Comments UA Color (test code = Light Yellow UA Color) *NA*(07/22/14 1:46 PM) [facility] [id number] 18:46:00 Test Item Value Reference Range Interpretation Comments Magnesium Lvl (test code = Magnesium 1.8 1.8-2.4 Lvl) [facility]ul[facility]ubLMJDDDMDBVQO2690-73-41 18:46:00 Test Item Value Reference Range Interpretation Comments AGAP (test code = AGAP) 13.2 10.0-20.0 [facility] HospitalKekoqceLUFPTABMWKBJ8898-68-68 18:46:00 Test Item Value Reference Range Interpretation Comments B/C Ratio (test code = B/C Ratio) 18 6-25 [facility] HospitalLjeaozlSGLSQOEDSPSZ1521-26-82 18:46:00 Test Item Value Reference Range Interpretation Comments A/G Ratio (test code = A/G Ratio) 1.1 0.7-1.6 [facility] HospitalHigaurgDIWLHYZTKAVA9473-09-65 18:46:00 Test Item Value Reference Range Interpretation Comments Globulin (test code = Globulin) 3.3 2.0-4.0 [facility] HospitalLrhfraqVWVXNWHXOBTM4657-73-75 18:46:00 Test Item Value Reference Range Interpretation Comments eGFR (test code = eGFR) 99 [facility] HospitalAnhmohjPFMMWZKSISUX3131-81-45 18:46:00 Test Item Value Reference Range Interpretation Comments Calcium Lvl (test code = Calcium Lvl) 9.0 8.5-10.5 [facility] HospitalQmdtmwpWAMKXEUEHLNS1560-36-30 18:46:00 Test Item Value Reference Range Interpretation Comments Chloride Lvl (test code = Chloride Lvl) 106 95-109 [facility] HospitalNwywkvqYIDWCZWXBQAX8105-04-32 18:46:00 Test Item Value Reference Range Interpretation Comments Creatinine Lvl (test code = Creatinine 0.9 0.5-1.4 Lvl) [facility] HospitalLmuiiebHOSTPPZYMBPE7397-23-12 18:46:00 Test Item Value Reference Range Interpretation Comments Potassium Lvl (test code = Potassium 4.2 3.5-5.1 Lvl) [facility] HospitalVlyokezJCQOSOBVKKNM3829-82-25 18:46:00 Test Item Value Reference Range Interpretation Comments Sodium Lvl (test code = Sodium Lvl) 139 135-145 [facility] HospitalFfmwivvPNQTHDSYOWVP8210-95-82 18:46:00 Test Item Value Reference Range Interpretation Comments CO2 (test code = CO2) 24 24-32 [facility] HospitalShccbhyTLLVDIZDRZAQ7215-35-12 18:46:00 Test Item Value Reference Range Interpretation Comments BUN (test code = BUN) 16 7-22 [facility] HospitalUfokfanTLSQWQRRHKXT0646-39-15 18:46:00 Test Item Value Reference Range Interpretation Comments Glucose Lvl (test code = Glucose Lvl) 141 70-99 [facility] HospitalGqaudqsCJTHCZYHRBHE4176-01-58 18:46:00 Test Item Value Reference Range Interpretation Comments Albumin Lvl (test code = Albumin Lvl) 3.6 3.5-5.0 [facility] HospitalHpltiihIBXNWDDYKPEO9640-46-34 18:46:00 Test Item Value Reference Range Interpretation Comments Alk Phos (test code = Alk Phos) 65 39-136 [facility] HospitalUzuwrnsNWEYQAQELVMS5429-95-30 18:46:00 Test Item Value Reference Range Interpretation Comments Bili Total (test code = Bili Total) 0.3 0.2-1.3 [facility] HospitalRmvjdfzPCASBMLOBLRJ5403-48-79 18:46:00 Test Item Value Reference Range Interpretation Comments ALT (test code = ALT) 100 See_Comment [Auto mated message] The system which ge nerated this result transmit elizabeth reference range : <=65. The reference range was not used to interpr et this result as margaret l/abnormal. [facility] HospitalZxshyupRZXTAKDAYZIY6817-94-62 18:46:00 Test Item Value Reference Range Interpretation Comments AST (test code = AST) 53 See_Comment [Auto mated message] The system which ge nerated this result transmit elizabeth reference range : <=37. The reference range was not used to interpr et this result as margaret l/abnormal. [facility] HospitalYuwzbrnIJAYDGMCHOGN7447-73-06 18:46:00 Test Item Value Reference Range Interpretation Comments Total Protein (test code = Total 6.9 6.4-8.4 Protein) [facility] CenterZtirspjTJMKVQLDHH6857-91-23 18:46:00 Test Item Value Reference Range Interpretation Comments Eosinophils (test code = 4.2 See_Comment [A utomated message] The Eosinophils) system which ge nerated this result tra nsmitted reference range : <=4.0. The reference r mitra was not used to int erpret this result as normal/abnormal . [facility] CenterQpqrakbPEKYBHIZMY3162-48-03 18:46:00 Test Item Value Reference Range Interpretation Comments Segs (test code = Segs) 56.4 45.0-75.0 [facility] CenterWclocbdFPLXZCAVFW1650-91-19 18:46:00 Test Item Value Reference Range Interpretation Comments Monocytes (test code = Monocytes) 10.3 2.0-12.0 [facility] CenterAferjbyYTEQMZHWBV2242-75-26 18:46:00 Test Item Value Reference Range Interpretation Comments Lymphocytes (test code = Lymphocytes) 28.0 20.0-40.0 [facility] CenterByzkeeaSKWPFQGIHN3384-75-99 18:46:00 Test Item Value Reference Range Interpretation Comments Monocytes # (test code 0.5 See_Comment [Aut omated message] The = Monocytes #) system which generated this result tra nsmitted reference range : <=0.8. The reference r mitra was not used to int erpret this result as normal/abnormal . [facility] CenterKhtxgvwTWOXEZSXCB4407-43-18 18:46:00 Test Item Value Reference Range Interpretation Comments Basophils (test code = 1.1 See_Comment [Aut omated message] The Basophils) system which ge nerated this result tra nsmitted reference range : <=1.0. The reference r mitra was not used to int erpret this result as normal/abnormal . [facility] CenterYpsrataOUQBPBMBUU4254-61-56 18:46:00 Test Item Value Reference Range Interpretation Comments Lymphocytes # (test code = Lymphocytes 1.5 1.0-5.5 #) [facility] CenterXuauuvgXAJRYLCPEQ8793-04-80 18:46:00 Test Item Value Reference Range Interpretation Comments Segs-Bands # (test code = Segs-Bands #) 2.9 1.5-8.1 [facility] CenterZxiyixgOSPSJAQQPX6168-64-90 18:46:00 Test Item Value Reference Range Interpretation Comments Eosinophils # (test code 0.2 See_Comment [A utomated message] The = Eosinophils #) system [facility] h generated this result tra nsmitted reference range : <=0.5. The reference r mitra was not used to int erpret this result as normal/abnormal . [facility] CenterUtulyliSUFUVCBMEK2966-80-60 18:46:00 Test Item Value Reference Range Interpretation Comments Basophils # (test code 0.1 See_Comment [Aut omated message] The = Basophils #) system which generated this result tra nsmitted reference range : <=0.2. The reference r mitra was not used to int erpret this result as normal/abnormal . [facility] CenterPjelovbNZGVMAOMKR0486-09-88 18:46:00 Test Item Value Reference Range Interpretation Comments PT (test code = PT) 11.2 s 12.0-14.7 [facility] CenterGtvihjpRGXLCPVHLR0798-24-15 18:46:00 Test Item Value Reference Range Interpretation Comments INR (test code = INR) 0.82 0.85-1.17 [facility] CenterSazcevvKIJBFRDLDU8770-02-28 18:46:00 Test Item Value Reference Range Interpretation Comments PTT (test code = PTT) 28.6 s 22.9-35.8 [facility] CenterKzivdlfPHFYVZGQLC5383-29-27 18:46:00 Test Item Value Reference Range Interpretation Comments MPV (test code = MPV) 8.1 7.4-10.4 [facility] CenterGsvclvwOBMSGVYKAW7759-37-02 18:46:00 Test Item Value Reference Range Interpretation Comments Platelet (test code = Platelet) 301 133-450 [facility] CenterHbsvnyeVFSFWUDHCD3220-51-72 18:46:00 Test Item Value Reference Range Interpretation Comments RDW (test code = RDW) 14.5 11.5-14.5 [facility] CenterAwqfbakASUWENQIAH7865-76-56 18:46:00 Test Item Value Reference Range Interpretation Comments RBC (test code = RBC) 4.84 4.70-6.10 [facility] CenterGoquovbCLULAVKHBF9348-15-53 18:46:00 Test Item Value Reference Range Interpretation Comments Hgb (test code = Hgb) 14.4 14.0-18.0 [facility] CenterEbwvgrtTBUFBRXRIP1516-58-70 18:46:00 Test Item Value Reference Range Interpretation Comments WBC (test code = WBC) 5.2 3.7-10.4 [facility] CenterDcurwmuFAGZJXXUFQ7102-67-20 18:46:00 Test Item Value Reference Range Interpretation Comments MCH (test code = MCH) 29.8 pg 27.0-31.0 [facility] CenterMbrmymsCPTSLMIABO9137-67-23 18:46:00 Test Item Value Reference Range Interpretation Comments MCV (test code = MCV) 92.0 80.0-94.0 [id number] 18:46:00 Test Item Value Reference Range Interpretation Comments Hct (test code = Hct) 44.5 42.0-54.0 [facility] CenterKjckhbrPBKNBBJSCI0909-70-71 18:46:00 Test Item Value Reference Range Interpretation Comments MCHC (test code = MCHC) 32.4 32.0-36.0 [facility]JINIIHGXYG2279-58-09 18:46:00 Test Item Value Reference Range Interpretation Comments [place]-Hep C Ab (test Negative *NA*(07/22/14 code = [place]-Hep C 1:46 PM) Ab) [facility] AND [id number] 18:46:00 Test Item Value Reference Range Interpretation Comments UA Urobilinogen (test code = UA <=1.0 mg/dL 0.1-1.0 Urobilinogen) [facility] AND [id number] 18:46:00 Test Item Value Reference Range Interpretation Comments UA Sq Epi (test code = UA Sq Epi) None Seen [facility] AND [id number] 18:46:00 Test Item Value Reference Range Interpretation Comments UA Leuk Est (test Negative (07/22/14 1:46 code = UA Leuk Est) PM) [facility] AND [id number] 18:46:00 Test Item Value Reference Range Interpretation Comments UA Nitrite (test code Negative (07/22/14 1:46 = UA Nitrite) PM) [facility] AND [id number] 18:46:00 Test Item Value Reference Range Interpretation Comments UA Blood (test code = Negative (07/22/14 1:46 UA Blood) PM) [facility] AND [id number] 18:46:00 Test Item Value Reference Range Interpretation Comments UA Ketones (test code = UA Negative mg/dL Ketones) [facility] AND [id number] 18:46:00 Test Item Value Reference Range Interpretation Comments UA Bili (test code = Negative *NA*(07/22/14 UA Bili) 1:46 PM) [facility] AND [id number] 18:46:00 Test Item Value Reference Range Interpretation Comments UA Bacteria (test code = UA Occasional /HPF Bacteria) [facility] AND [id number] 18:46:00 Test Item Value Reference Range Interpretation Comments UA RBC (test code = no gt See_Comment [Automa elizabeth message] The UA RBC) system which ge nerated this result transmit elizabeth reference range : <=2. The reference range was not used to interpr et this result as margaret l/abnormal. [facility] AND [id number] 18:46:00 Test Item Value Reference Range Interpretation Comments UA WBC (test code = 1 See_Comment [Automa elizabeth message] The UA WBC) system which ge nerated this result transmit elizabeth reference range : <=5. The reference range was not used to interpr et this result as margaret l/abnormal. [facility] AND [id number] 18:46:00 Test Item Value Reference Range Interpretation Comments UA Glucose (test code = UA Glucose) 30 mg/dL [facility] AND [id number] 18:46:00 Test Item Value Reference Range Interpretation Comments UA Protein (test code = UA Negative mg/dL Protein) [facility] AND [id number] 18:46:00 Test Item Value Reference Range Interpretation Comments UA pH (test code = UA pH) 6.5 5.0-8.0 [facility] AND [id number] 18:46:00 Test Item Value Reference Range Interpretation Comments UA Turbidity (test code = Clear (07/22/14 1:46 UA Turbidity) PM) [facility] AND [id number] 18:46:00 Test Item Value Reference Range Interpretation Comments UA Spec Grav (test code = UA Spec Grav) 1.010 [facility] AND [id number] 18:46:00 Test Item Value Reference Range Interpretation Comments UA Color (test code = Light Yellow UA Color) *NA*(07/22/14 1:46 PM) [facility] [id number] 18:46:00 Test Item Value Reference Range Interpretation Comments Magnesium Lvl (test code = Magnesium 1.8 1.8-2.4 Lvl) [facility] Hospital[id number] 18:46:00 Test Item Value Reference Range Interpretation Comments AGAP (test code = AGAP) 13.2 10.0-20.0 [facility] HospitalRtrbzomHAOADUPEAXTL5925-25-49 18:46:00 Test Item Value Reference Range Interpretation Comments B/C Ratio (test code = B/C Ratio) 18 6-25 [facility] HospitalXhxgftaPZHVZQYFTFLM9723-69-61 18:46:00 Test Item Value Reference Range Interpretation Comments A/G Ratio (test code = A/G Ratio) 1.1 0.7-1.6 [facility] HospitalLicddvzJQLZFCIYWUKJ9692-33-76 18:46:00 Test Item Value Reference Range Interpretation Comments Globulin (test code = Globulin) 3.3 2.0-4.0 [facility] HospitalXjralvaCTWCAGOYKMEG3357-82-18 18:46:00 Test Item Value Reference Range Interpretation Comments eGFR (test code = eGFR) 99 [facility] HospitalAqcbrcpXDSWNYHNFDHT1947-74-71 18:46:00 Test Item Value Reference Range Interpretation Comments Calcium Lvl (test code = Calcium Lvl) 9.0 8.5-10.5 [facility] HospitalRzkvttxITYUVPHVWZBP1127-35-23 18:46:00 Test Item Value Reference Range Interpretation Comments Chloride Lvl (test code = Chloride Lvl) 106 95-109 [facility] HospitalUcchtdlTZJWZMKTHTAD7043-59-44 18:46:00 Test Item Value Reference Range Interpretation Comments Creatinine Lvl (test code = Creatinine 0.9 0.5-1.4 Lvl) [facility] HospitalQcfrszwKEMLAXOERYVX3568-53-32 18:46:00 Test Item Value Reference Range Interpretation Comments Potassium Lvl (test code = Potassium 4.2 3.5-5.1 Lvl) [facility] HospitalWhauvhcLSJXRUYBIUWR2944-27-49 18:46:00 Test Item Value Reference Range Interpretation Comments Sodium Lvl (test code = Sodium Lvl) 139 135-145 [facility] HospitalEmqyavvLHYDJYJHVVOG0666-29-43 18:46:00 Test Item Value Reference Range Interpretation Comments CO2 (test code = CO2) 24 24-32 [facility] HospitalWkrckzxIPDWQOCFEUFF9266-62-50 18:46:00 Test Item Value Reference Range Interpretation Comments BUN (test code = BUN) 16 7-22 [facility] HospitalBscgyoaKKEQPQMWPRIQ5689-90-88 18:46:00 Test Item Value Reference Range Interpretation Comments Glucose Lvl (test code = Glucose Lvl) 141 70-99 [facility] HospitalSszjwinSTFXKFPLUSQG5601-56-14 18:46:00 Test Item Value Reference Range Interpretation Comments Albumin Lvl (test code = Albumin Lvl) 3.6 3.5-5.0 [facility] HospitalWufpnnlMPLUAJWRRUNW4049-25-22 18:46:00 Test Item Value Reference Range Interpretation Comments Alk Phos (test code = Alk Phos) 65 39-136 [facility] HospitalBwezhhgEMQRVZMELGCR0038-59-91 18:46:00 Test Item Value Reference Range Interpretation Comments Bili Total (test code = Bili Total) 0.3 0.2-1.3 [facility] HospitalTpgdgtuZRCFRYXYSQAA4500-62-49 18:46:00 Test Item Value Reference Range Interpretation Comments ALT (test code = ALT) 100 See_Comment [Auto mated message] The system which ge nerated this result transmit elizabeth reference range : <=65. The reference range was not used to interpr et this result as margaret l/abnormal. [facility] Hospital[id number] 18:46:00 Test Item Value Reference Range Interpretation Comments AST (test code = AST) 53 See_Comment [Auto mated message] The system which ge nerated this result transmit elizabeth reference range : <=37. The reference range was not used to interpr et this result as margaret l/abnormal. [facility] HospitalFqpfpbjSKCQOUUHAZZP7824-75-41 18:46:00 Test Item Value Reference Range Interpretation Comments Total Protein (test code = Total 6.9 6.4-8.4 Protein) [facility] CenterEdjnmlrVIDUKIBIYC7251-68-25 18:46:00 Test Item Value Reference Range Interpretation Comments Eosinophils (test code = 4.2 See_Comment [A utomated message] The Eosinophils) system which ge nerated this result tra nsmitted reference range : <=4.0. The reference r mitra was not used to int erpret this result as normal/abnormal . [facility] CenterCqydzlwWBFQMRBSWA8131-17-72 18:46:00 Test Item Value Reference Range Interpretation Comments Segs (test code = Segs) 56.4 45.0-75.0 [facility] CenterMjiqlxfZOWDUJVTVX4247-08-60 18:46:00 Test Item Value Reference Range Interpretation Comments Monocytes (test code = Monocytes) 10.3 2.0-12.0 [facility] CenterGkaxuijTOFUAKQGFV3462-63-88 18:46:00 Test Item Value Reference Range Interpretation Comments Lymphocytes (test code = Lymphocytes) 28.0 20.0-40.0 [facility] CenterKdxmpjdKBJRONPVYB8494-51-90 18:46:00 Test Item Value Reference Range Interpretation Comments Monocytes # (test code 0.5 See_Comment [Aut omated message] The = Monocytes #) system which generated this result tra nsmitted reference range : <=0.8. The reference r mitra was not used to int erpret this result as normal/abnormal . [facility] CenterYgrzcfyHLPRFTMJZU7863-54-87 18:46:00 Test Item Value Reference Range Interpretation Comments Basophils (test code = 1.1 See_Comment [Aut omated message] The Basophils) system which ge nerated this result tra nsmitted reference range : <=1.0. The reference r mitra was not used to int erpret this result as normal/abnormal . [facility] CenterHjilefwBXERIOSFLO0832-31-57 18:46:00 Test Item Value Reference Range Interpretation Comments Lymphocytes # (test code = Lymphocytes 1.5 1.0-5.5 #) [facility] CenterIklmdbzTXMKVDTKEY2122-03-52 18:46:00 Test Item Value Reference Range Interpretation Comments Segs-Bands # (test code = Segs-Bands #) 2.9 1.5-8.1 [facility] CenterTzyphzvKPHHZYUFBR0159-21-53 18:46:00 Test Item Value Reference Range Interpretation Comments Eosinophils # (test code 0.2 See_Comment [A utomated message] The = Eosinophils #) system whic h generated this result tra nsmitted reference range : <=0.5. The reference r mitra was not used to int erpret this result as normal/abnormal . [facility] CenterYuxlrvnXINKMDPGBU9163-81-20 18:46:00 Test Item Value Reference Range Interpretation Comments Basophils # (test code 0.1 See_Comment [Aut omated message] The = Basophils #) system which generated this result tra nsmitted reference range : <=0.2. The reference r mitra was not used to int erpret this result as normal/abnormal . [facility] CenterNwpgdwjWYBMQSOFVG9450-72-27 18:46:00 Test Item Value Reference Range Interpretation Comments PT (test code = PT) 11.2 s 12.0-14.7 [facility] CenterRatpyzjISWFLZHVWU3035-47-44 18:46:00 Test Item Value Reference Range Interpretation Comments INR (test code = INR) 0.82 0.85-1.17 [facility] CenterRjakhqyGCQGPMUBJY8690-93-53 18:46:00 Test Item Value Reference Range Interpretation Comments PTT (test code = PTT) 28.6 s 22.9-35.8 [facility] CenterUmvefatEBTBSRLWUU7565-11-01 18:46:00 Test Item Value Reference Range Interpretation Comments MPV (test code = MPV) 8.1 7.4-10.4 [facility] CenterElhnzqjVCQEPEAYZY0960-60-75 18:46:00 Test Item Value Reference Range Interpretation Comments Platelet (test code = Platelet) 301 133-450 [facility] CenterMkdgphgWEYQFASQNY7271-15-16 18:46:00 Test Item Value Reference Range Interpretation Comments RDW (test code = RDW) 14.5 11.5-14.5 [facility] CenterDkqnullFRELFCIFWB6767-56-46 18:46:00 Test Item Value Reference Range Interpretation Comments RBC (test code = RBC) 4.84 4.70-6.10 [facility] CenterBrbxeeqCHODUSDGQH4451-38-10 18:46:00 Test Item Value Reference Range Interpretation Comments Hgb (test code = Hgb) 14.4 14.0-18.0 [facility] CenterGxxdzssQGRGOLYTYW4360-12-58 18:46:00 Test Item Value Reference Range Interpretation Comments WBC (test code = WBC) 5.2 3.7-10.4 [facility]ICKQJOMPIQ4215-58-78 18:46:00 Test Item Value Reference Range Interpretation Comments MCH (test code = MCH) 29.8 pg 27.0-31.0 [facility] CenterFhjgsevILLZOCJHLB6281-03-84 18:46:00 Test Item Value Reference Range Interpretation Comments MCV (test code = MCV) 92.0 80.0-94.0 [facility] SystemJkliexqOCZEXCEMPJ0180-75-68 18:46:00 Test Item Value Reference Range Interpretation Comments Hct (test code = Hct) 44.5 42.0-54.0 [facility] SystemHczaeshBMVNEMMIIM2641-76-32 18:46:00 Test Item Value Reference Range Interpretation Comments MCHC (test code = MCHC) 32.4 32.0-36.0 [facility] CenterXjsdbmcFHEYDMBKHH6812-56-64 18:46:00 Test Item Value Reference Range Interpretation Comments [place]-Hep C Ab (test Negative *NA*(07/22/14 code = [place]-Hep C 1:46 PM) Ab) [facility] AND [id number] 18:46:00 Test Item Value Reference Range Interpretation Comments UA Urobilinogen (test code = UA <=1.0 mg/dL 0.1-1.0 Urobilinogen) [facility] AND [id number] 18:46:00 Test Item Value Reference Range Interpretation Comments UA Sq Epi (test code = UA Sq Epi) None Seen [facility] AND [id number] 18:46:00 Test Item Value Reference Range Interpretation Comments UA Leuk Est (test Negative (07/22/14 1:46 code = UA Leuk Est) PM) [facility] AND [id number] 18:46:00 Test Item Value Reference Range Interpretation Comments UA Nitrite (test code Negative (07/22/14 1:46 = UA Nitrite) PM) [facility] AND [id number] 18:46:00 Test Item Value Reference Range Interpretation Comments UA Blood (test code = Negative (07/22/14 1:46 UA Blood) PM) [facility] AND [id number] 18:46:00 Test Item Value Reference Range Interpretation Comments UA Ketones (test code = UA Negative mg/dL Ketones) [facility] AND [id number] 18:46:00 Test Item Value Reference Range Interpretation Comments UA Bili (test code = Negative *NA*(07/22/14 UA Bili) 1:46 PM) [facility] AND [id number] 18:46:00 Test Item Value Reference Range Interpretation Comments UA Bacteria (test code = UA Occasional /HPF Bacteria) [facility] AND [id number] 18:46:00 Test Item Value Reference Range Interpretation Comments UA RBC (test code = no gt See_Comment [Automa elizabeth message] The UA RBC) system which ge nerated this result transmit elizabeth reference range : <=2. The reference range was not used to interpr et this result as margaret l/abnormal. [facility] AND [id number] 18:46:00 Test Item Value Reference Range Interpretation Comments UA WBC (test code = 1 See_Comment [Automa elizabeth message] The UA WBC) system which ge nerated this result transmit elizabeth reference range : <=5. The reference range was not used to interpr et this result as margaret l/abnormal. [facility] AND [id number] 18:46:00 Test Item Value Reference Range Interpretation Comments UA Glucose (test code = UA Glucose) 30 mg/dL [facility] AND [id number] 18:46:00 Test Item Value Reference Range Interpretation Comments UA Protein (test code = UA Negative mg/dL Protein) [facility] AND [id number] 18:46:00 Test Item Value Reference Range Interpretation Comments UA pH (test code = UA pH) 6.5 5.0-8.0 [facility] AND [id number] 18:46:00 Test Item Value Reference Range Interpretation Comments UA Turbidity (test code = Clear (07/22/14 1:46 UA Turbidity) PM) [facility] AND [id number] 18:46:00 Test Item Value Reference Range Interpretation Comments UA Spec Grav (test code = UA Spec Grav) 1.010 [facility] AND [id number] 18:46:00 Test Item Value Reference Range Interpretation Comments UA Color (test code = Light Yellow UA Color) *NA*(07/22/14 1:46 PM) [facility] CenterCHEM [id number] 18:46:00 Test Item Value Reference Range Interpretation Comments Magnesium Lvl (test code = Magnesium 1.8 1.8-2.4 Lvl) [facility] HospitalXioygcdHRYVFJYMOEFL5550-47-86 18:46:00 Test Item Value Reference Range Interpretation Comments AGAP (test code = AGAP) 13.2 10.0-20.0 [facility] [id number] 18:46:00 Test Item Value Reference Range Interpretation Comments Magnesium Lvl (test code = Magnesium 1.8 1.8-2.4 Lvl) [facility] Hos[id number] 18:46:00 Test Item Value Reference Range Interpretation Comments AGAP (test code = AGAP) 13.2 10.0-20.0 [facility] HospitalNyhaquyUFHDRPZNMPQC7833-39-09 18:46:00 Test Item Value Reference Range Interpretation Comments B/C Ratio (test code = B/C Ratio) 18 6-25 [facility] HospitalYfkfuvcPKOKQFBCKVRM6613-68-90 18:46:00 Test Item Value Reference Range Interpretation Comments A/G Ratio (test code = A/G Ratio) 1.1 0.7-1.6 [facility] HospitalEtsrpwtYQNXCTLPOCJD8147-22-49 18:46:00 Test Item Value Reference Range Interpretation Comments Globulin (test code = Globulin) 3.3 2.0-4.0 [facility] HospitalCndpgdgQLDERTDWTDON1393-25-99 18:46:00 Test Item Value Reference Range Interpretation Comments eGFR (test code = eGFR) 99 [facility] HospitalUnrzprgQNMWLACVPPPK1277-83-47 18:46:00 Test Item Value Reference Range Interpretation Comments Calcium Lvl (test code = Calcium Lvl) 9.0 8.5-10.5 [facility] HospitalBqysyszVLBBWNBPIKZU7450-46-20 18:46:00 Test Item Value Reference Range Interpretation Comments Chloride Lvl (test code = Chloride Lvl) 106 95-109 [facility] HospitalQcztsmmUDEJOAQKOLJT8741-08-04 18:46:00 Test Item Value Reference Range Interpretation Comments Creatinine Lvl (test code = Creatinine 0.9 0.5-1.4 Lvl) [facility] HospitalHxloqhyZFDMWWHJMXAY5358-73-59 18:46:00 Test Item Value Reference Range Interpretation Comments Potassium Lvl (test code = Potassium 4.2 3.5-5.1 Lvl) [facility] HospitalWwggspsZTGCZRJLYYWD6354-91-56 18:46:00 Test Item Value Reference Range Interpretation Comments Sodium Lvl (test code = Sodium Lvl) 139 135-145 [facility] HospitalZsxnzofIYADYVBHFGIC2339-78-18 18:46:00 Test Item Value Reference Range Interpretation Comments CO2 (test code = CO2) 24 24-32 [facility] HospitalKfkcyyiHUMJXDIJEWTC3379-62-68 18:46:00 Test Item Value Reference Range Interpretation Comments BUN (test code = BUN) 16 7-22 [facility] HospitalDsrjufhHHGXBFZOUWKJ1185-40-83 18:46:00 Test Item Value Reference Range Interpretation Comments Glucose Lvl (test code = Glucose Lvl) 141 70-99 [facility] HospitalYfqlyliIMDMFCJBEXDG0953-59-44 18:46:00 Test Item Value Reference Range Interpretation Comments Albumin Lvl (test code = Albumin Lvl) 3.6 3.5-5.0 [facility] HospitalHeosexwCGGWDPBPJIUI0246-76-06 18:46:00 Test Item Value Reference Range Interpretation Comments Alk Phos (test code = Alk Phos) 65 39-136 [facility] HospitalTjgioowTRGNHHOCVBUJ2509-44-00 18:46:00 Test Item Value Reference Range Interpretation Comments Bili Total (test code = Bili Total) 0.3 0.2-1.3 [facility] HospitalCzrorlkRBIZPPIDVBCP9351-06-98 18:46:00 Test Item Value Reference Range Interpretation Comments ALT (test code = ALT) 100 See_Comment [Auto mated message] The system which ge nerated this result transmit elizabeth reference range : <=65. The reference range was not used to interpr et this result as margaret l/abnormal. [facility] HospitalUgrdiszCHFZHKRTJKNK4826-99-03 18:46:00 Test Item Value Reference Range Interpretation Comments AST (test code = AST) 53 See_Comment [Auto mated message] The system which ge nerated this result transmit elizabeth reference range : <=37. The reference range was not used to interpr et this result as margaret l/abnormal. [facility] HospitalEvcdoruRALFPLMYFKRL7434-64-84 18:46:00 Test Item Value Reference Range Interpretation Comments Total Protein (test code = Total 6.9 6.4-8.4 Protein) [facility] CenterSjjiuhlNDAWMYBQWJ4653-44-62 18:46:00 Test Item Value Reference Range Interpretation Comments Eosinophils (test code = 4.2 See_Comment [A utomated message] The Eosinophils) system which ge nerated this result tra nsmitted reference range : <=4.0. The reference r mitra was not used to int erpret this result as normal/abnormal . [facility] CenterIcrgmgyBGZVMDWGYN4571-27-85 18:46:00 Test Item Value Reference Range Interpretation Comments Segs (test code = Segs) 56.4 45.0-75.0 [facility] CenterMhbnnbtYINASSZFZS0074-85-71 18:46:00 Test Item Value Reference Range Interpretation Comments Monocytes (test code = Monocytes) 10.3 2.0-12.0 [facility] CenterRxjycsxEIDNJWLFUN5992-82-25 18:46:00 Test Item Value Reference Range Interpretation Comments Lymphocytes (test code = Lymphocytes) 28.0 20.0-40.0 [facility] CenterXwdqfmwXPFPWKFPNY2132-66-22 18:46:00 Test Item Value Reference Range Interpretation Comments Monocytes # (test code 0.5 See_Comment [Aut omated message] The = Monocytes #) system which generated this result tra nsmitted reference range : <=0.8. The reference r mitra was not used to int erpret this result as normal/abnormal . [facility] CenterExffhnyOJHIBRLSUN7618-48-83 18:46:00 Test Item Value Reference Range Interpretation Comments Basophils (test code = 1.1 See_Comment [Aut omated message] The Basophils) system which ge nerated this result tra nsmitted reference range : <=1.0. The reference r mitra was not used to int erpret this result as normal/abnormal . [facility] CenterPkhnuxnOFNJQRSGYQ6466-36-53 18:46:00 Test Item Value Reference Range Interpretation Comments Lymphocytes # (test code = Lymphocytes 1.5 1.0-5.5 #) [facility] CenterUrdyfltNJNHPQZUXW6167-52-47 18:46:00 Test Item Value Reference Range Interpretation Comments Segs-Bands # (test code = Segs-Bands #) 2.9 1.5-8.1 [facility] CenterEjkstduESVDUTJAMB3530-16-90 18:46:00 Test Item Value Reference Range Interpretation Comments Eosinophils # (test code 0.2 See_Comment [A utomated message] The = Eosinophils #) system whic h generated this result tra nsmitted reference range : <=0.5. The reference r mitra was not used to int erpret this result as normal/abnormal . [facility] CenterBhkxypjZQEWYIPGWC1451-63-60 18:46:00 Test Item Value Reference Range Interpretation Comments Basophils # (test code 0.1 See_Comment [Aut omated message] The = Basophils #) system which generated this result tra nsmitted reference range : <=0.2. The reference r mitra was not used to int erpret this result as normal/abnormal . [facility] CenterUoafhliNTAJJMPZEC5981-95-45 18:46:00 Test Item Value Reference Range Interpretation Comments PT (test code = PT) 11.2 s 12.0-14.7 [facility] CenterPqkrnerRRHTJRAROY0032-97-93 18:46:00 Test Item Value Reference Range Interpretation Comments INR (test code = INR) 0.82 0.85-1.17 [facility] CenterRlodqgtEFCJLTWJDV0865-76-95 18:46:00 Test Item Value Reference Range Interpretation Comments PTT (test code = PTT) 28.6 s 22.9-35.8 [facility] CenterZgpnxlzXNPWRQRPEL8316-71-66 18:46:00 Test Item Value Reference Range Interpretation Comments MPV (test code = MPV) 8.1 7.4-10.4 [facility] CenterGmjmbhsZOMQHGHTGT0933-74-68 18:46:00 Test Item Value Reference Range Interpretation Comments Platelet (test code = Platelet) 301 133-450 [facility] CenterDywovxtUYXRXUBJYF8004-39-00 18:46:00 Test Item Value Reference Range Interpretation Comments RDW (test code = RDW) 14.5 11.5-14.5 [facility] CenterWfoxnugAEFMAYWRLR5049-30-30 18:46:00 Test Item Value Reference Range Interpretation Comments RBC (test code = RBC) 4.84 4.70-6.10 [facility] CenterHjgyxrrKBRYTNPMYB9357-96-65 18:46:00 Test Item Value Reference Range Interpretation Comments Hgb (test code = Hgb) 14.4 14.0-18.0 [facility] CenterKsogwwqMWKLGZQHKO8434-18-47 18:46:00 Test Item Value Reference Range Interpretation Comments WBC (test code = WBC) 5.2 3.7-10.4 [facility]FqbwnfzYUDMQCFOYJ3076-71-28 18:46:00 Test Item Value Reference Range Interpretation Comments MCH (test code = MCH) 29.8 pg 27.0-31.0 [facility] CenterXuhhrxiTMAKQLZBJP0784-90-44 18:46:00 Test Item Value Reference Range Interpretation Comments MCV (test code = MCV) 92.0 80.0-94.0 [id number] 18:46:00 Test Item Value Reference Range Interpretation Comments Hct (test code = Hct) 44.5 42.0-54.0 [facility]NrzwmrqGDIXXQQVRL3932-10-11 18:46:00 Test Item Value Reference Range Interpretation Comments MCHC (test code = MCHC) 32.4 32.0-36.0 [facility] [id number] 18:46:00 Test Item Value Reference Range Interpretation Comments [place]-Hep C Ab (test Negative *NA*(07/22/14 code = [place]-Hep C 1:46 PM) Ab) [facility] AND [id number] 18:46:00 Test Item Value Reference Range Interpretation Comments UA Urobilinogen (test code = UA <=1.0 mg/dL 0.1-1.0 Urobilinogen) [facility] AND [id number] 18:46:00 Test Item Value Reference Range Interpretation Comments UA Sq Epi (test code = UA Sq Epi) None Seen [facility] AND [id number] 18:46:00 Test Item Value Reference Range Interpretation Comments UA Leuk Est (test Negative (07/22/14 1:46 code = UA Leuk Est) PM) [facility] AND [id number] 18:46:00 Test Item Value Reference Range Interpretation Comments UA Nitrite (test code Negative (07/22/14 1:46 = UA Nitrite) PM) [facility] AND [id number] 18:46:00 Test Item Value Reference Range Interpretation Comments UA Blood (test code = Negative (07/22/14 1:46 UA Blood) PM) [facility] AND [id number] 18:46:00 Test Item Value Reference Range Interpretation Comments UA Ketones (test code = UA Negative mg/dL Ketones) [facility] AND [id number] 18:46:00 Test Item Value Reference Range Interpretation Comments UA Bili (test code = Negative *NA*(07/22/14 UA Bili) 1:46 PM) [facility] [id number] 18:46:00 Test Item Value Reference Range Interpretation Comments UA Bacteria (test code = UA Occasional /HPF Bacteria) [facility] [id number] 18:46:00 Test Item Value Reference Range Interpretation Comments UA RBC (test code = no gt See_Comment [Automa elizabeth message] The UA RBC) system which ge nerated this result transmit elizabeth reference range : <=2. The reference range was not used to interpr et this result as margaret l/abnormal. [facility] [id number] 18:46:00 Test Item Value Reference Range Interpretation Comments UA WBC (test code = 1 See_Comment [Automa elizabeth message] The UA WBC) system which ge nerated this result transmit elizabeth reference range : <=5. The reference range was not used to interpr et this result as margaret l/abnormal. [facility] [id number] 18:46:00 Test Item Value Reference Range Interpretation Comments UA Glucose (test code = UA Glucose) 30 mg/dL [facility] [id number] 18:46:00 Test Item Value Reference Range Interpretation Comments UA Protein (test code = UA Negative mg/dL Protein) [facility] [id number] 18:46:00 Test Item Value Reference Range Interpretation Comments UA pH (test code = UA pH) 6.5 5.0-8.0 [facility] [id number] 18:46:00 Test Item Value Reference Range Interpretation Comments UA Turbidity (test code = Clear (07/22/14 1:46 UA Turbidity) PM) [facility] [id number] 18:46:00 Test Item Value Reference Range Interpretation Comments UA Spec Grav (test code = UA Spec Grav) 1.010 [facility] [id number] 18:46:00 Test Item Value Reference Range Interpretation Comments UA Color (test code = Light Yellow UA Color) *NA*(07/22/14 1:46 PM) [facility] [id number] 18:46:00 Test Item Value Reference Range Interpretation Comments B/C Ratio (test code = B/C Ratio) 18 6-25 [facility] Hosp[id number] 18:46:00 Test Item Value Reference Range Interpretation Comments A/G Ratio (test code = A/G Ratio) 1.1 0.7-1.6 [facility] Hospital[id number] 18:46:00 Test Item Value Reference Range Interpretation Comments Globulin (test code = Globulin) 3.3 2.0-4.0 [facility] Hospital[id number] 18:46:00 Test Item Value Reference Range Interpretation Comments eGFR (test code = eGFR) 99 [facility] HospitalSnmsaioTZFWSGUGJBKM8545-55-01 18:46:00 Test Item Value Reference Range Interpretation Comments Calcium Lvl (test code = Calcium Lvl) 9.0 8.5-10.5 [facility] Hospital[id number] 18:46:00 Test Item Value Reference Range Interpretation Comments Chloride Lvl (test code = Chloride Lvl) 106 95-109 [facility] HospitalLzaxttnFVZLZHYQNDTO4688-79-84 18:46:00 Test Item Value Reference Range Interpretation Comments Creatinine Lvl (test code = Creatinine 0.9 0.5-1.4 Lvl) [facility] Hospital[id number] 18:46:00 Test Item Value Reference Range Interpretation Comments Potassium Lvl (test code = Potassium 4.2 3.5-5.1 Lvl) [facility] HospitalHejubrtEQSRZRGJBCBZ2996-97-27 18:46:00 Test Item Value Reference Range Interpretation Comments Sodium Lvl (test code = Sodium Lvl) 139 135-145 [facility] Hos[id number] 18:46:00 Test Item Value Reference Range Interpretation Comments CO2 (test code = CO2) 24 24-32 [facility] HospitalZrfsxfsXTXUBKPATGFN5514-21-02 18:46:00 Test Item Value Reference Range Interpretation Comments BUN (test code = BUN) 16 7-22 [facility] HospitalWehthgbRNPMHUFRTADW3359-29-15 18:46:00 Test Item Value Reference Range Interpretation Comments Glucose Lvl (test code = Glucose Lvl) 141 70-99 [facility] Hospital[id number] 18:46:00 Test Item Value Reference Range Interpretation Comments Albumin Lvl (test code = Albumin Lvl) 3.6 3.5-5.0 [facility] HospitalLbxtynnRNCFKFFMMXGK0087-77-19 18:46:00 Test Item Value Reference Range Interpretation Comments Alk Phos (test code = Alk Phos) 65 39-136 [facility] HospitalUfletwpKIMPWVEGLLIT6945-16-47 18:46:00 Test Item Value Reference Range Interpretation Comments Bili Total (test code = Bili Total) 0.3 0.2-1.3 [facility] Hospi[id number] 18:46:00 Test Item Value Reference Range Interpretation Comments ALT (test code = ALT) 100 See_Comment [Auto mated message] The system which ge nerated this result transmit elizabeth reference range : <=65. The reference range was not used to interpr et this result as margaret l/abnormal. [facility] HospitalZfkevrqAXJLGMBSHSQF9844-25-33 18:46:00 Test Item Value Reference Range Interpretation Comments AST (test code = AST) 53 See_Comment [Auto mated message] The system which ge nerated this result transmit elizabeth reference range : <=37. The reference range was not used to interpr et this result as margaret l/abnormal. [facility] Hospital[id number] 18:46:00 Test Item Value Reference Range Interpretation Comments Total Protein (test code = Total 6.9 6.4-8.4 Protein) [facility] Cent[id number] 18:46:00 Test Item Value Reference Range Interpretation Comments Eosinophils (test code = 4.2 See_Comment [A utomated message] The Eosinophils) system which ge nerated this result tra nsmitted reference range : <=4.0. The reference r mitra was not used to int erpret this result as normal/abnormal . [facility] CenterSdtlmxyQFOQBPSRDR1282-26-44 18:46:00 Test Item Value Reference Range Interpretation Comments Segs (test code = Segs) 56.4 45.0-75.0 [facility] CenterCiqdjfmFATFKEJUNB7813-63-85 18:46:00 Test Item Value Reference Range Interpretation Comments Monocytes (test code = Monocytes) 10.3 2.0-12.0 [facility] CenterXggqvueSJUKIHSHIF6029-00-58 18:46:00 Test Item Value Reference Range Interpretation Comments Lymphocytes (test code = Lymphocytes) 28.0 20.0-40.0 [facility] CenterOybkpfwZEEWFDXSWF0631-79-48 18:46:00 Test Item Value Reference Range Interpretation Comments Monocytes # (test code 0.5 See_Comment [Aut omated message] The = Monocytes #) system which generated this result tra nsmitted reference range : <=0.8. The reference r mitra was not used to int erpret this result as normal/abnormal . [facility] Cent[id number] 18:46:00 Test Item Value Reference Range Interpretation Comments Basophils (test code = 1.1 See_Comment [Aut omated message] The Basophils) system which ge nerated this result tra nsmitted reference range : <=1.0. The reference r mitra was not used to int erpret this result as normal/abnormal . [facility] CenterUthfmdcECIYCUVFCG0804-57-54 18:46:00 Test Item Value Reference Range Interpretation Comments Lymphocytes # (test code = Lymphocytes 1.5 1.0-5.5 #) [facility] CenterBeptzjdHDJLMBHEUP0338-20-39 18:46:00 Test Item Value Reference Range Interpretation Comments Segs-Bands # (test code = Segs-Bands #) 2.9 1.5-8.1 [facility] CenterYxhscbuMYULBIQKIZ8830-85-93 18:46:00 Test Item Value Reference Range Interpretation Comments Eosinophils # (test code 0.2 See_Comment [A utomated message] The = Eosinophils #) system whic h generated this result tra nsmitted reference range : <=0.5. The reference r mitra was not used to int erpret this result as normal/abnormal . [facility] Cent[id number] 18:46:00 Test Item Value Reference Range Interpretation Comments Basophils # (test code 0.1 See_Comment [Aut omated message] The = Basophils #) system which generated this result tra nsmitted reference range : <=0.2. The reference r mitra was not used to int erpret this result as normal/abnormal . [facility] CenterQunxsabTVIWUVXDET8234-59-97 18:46:00 Test Item Value Reference Range Interpretation Comments PT (test code = PT) 11.2 s 12.0-14.7 [facility] CenterYadktfzCKOPMMKQIH7475-96-05 18:46:00 Test Item Value Reference Range Interpretation Comments INR (test code = INR) 0.82 0.85-1.17 [facility] CenterCicfxbsFIJENBHWFR0100-56-17 18:46:00 Test Item Value Reference Range Interpretation Comments PTT (test code = PTT) 28.6 s 22.9-35.8 [facility] CenterQrkqjuuCMWKZSZFAE3544-06-80 18:46:00 Test Item Value Reference Range Interpretation Comments MPV (test code = MPV) 8.1 7.4-10.4 [facility] CenterDdetlctQYOSDVIXQI3737-33-50 18:46:00 Test Item Value Reference Range Interpretation Comments Platelet (test code = Platelet) 301 133-450 [facility] CenterEggphgoPICNXFKCWD1756-44-96 18:46:00 Test Item Value Reference Range Interpretation Comments RDW (test code = RDW) 14.5 11.5-14.5 [facility] CenterJmdblysNDABPIYXTJ0998-51-30 18:46:00 Test Item Value Reference Range Interpretation Comments RBC (test code = RBC) 4.84 4.70-6.10 [facility] CenterYienoalXYGNIIHGEO7353-41-05 18:46:00 Test Item Value Reference Range Interpretation Comments Hgb (test code = Hgb) 14.4 14.0-18.0 [facility] CenterHcxkobvKACWJEZNEV4396-45-00 18:46:00 Test Item Value Reference Range Interpretation Comments WBC (test code = WBC) 5.2 3.7-10.4 [facility] Notes Date/Time Note Provider Source 2017-01-31 21:00:10-00:00 [facility] Discharge Summary PATIENT NAME: CHARO KAYE PHYSICIAN: Royal Reed Admitted: MR NUMBER: [id number] DISCHARGED: 01/04/2017 12:2 2:00 DATE OF ADMISSION: 12/23/2016 DATE OF DISCHARGE: 01/04/2017 REASON FOR ADMISSION: The patient was admitted for a chief complaint o f disorganized thoughts and behaviors, apparent delusions. [facility] on criminal mi [...] receives Social Security, re cently released from care home and poor social support. PRINCIPAL PROCEDURES: Psychopharmacotherapy. [...] resolution of his Patient Name: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
--- NOTE | 2022-07-19 18:19 | RAD REPORT ---
EXAM DESCRIPTION: RAD - Chest Single View - 07/19/2022 6:13 pm CLINICAL HISTORY: SWELLING Chest pain. COMPARISON: <Comparisons> FINDINGS: Portable technique limits examination quality. Mild interstitial pulmonary edema seen. The heart is mildly enlarged in size. No displaced fractures. IMPRESSION: Mild CHF.
[2022-07-19 19:15] LABS: Absolute Lymphocytes (CBC) 0.9 K/uL (0.7-4.9); Hematocrit 33.2 % (39.6-49.0); Lymphocytes % 17.4 % (15.3-44.8); MCV 87.2 fL (80-100); MPV 6.7 fL (7.6-11.3)
[2022-07-19] MEDS ORDERED: ONDANSETRON 4 MG/2 ML VIAL ONE (19:27)
[2022-07-19] MEDS ORDERED: MORPHINE 4 MG/ML SYR ONE (19:27)
[2022-07-19 19:36] LABS: ALT/SGPT 25 U/L (16-61); AST/SGOT 15 U/L (15-37); Albumin 3.8 g/dL (3.4-5.0); Alkaline Phosphatase 105 U/L (45-117); BUN Blood Urea Nitrogen 21 mg/dL (7-18); Bicarbonate 24 mEq/L (21-32); Bilirubin Total 0.3 mg/dL (0.2-1.0); Glomerular Filtration Rate 82 ml/min (=/>90); Glucose Level 86 mg/dL (74-106); Magnesium 2.5 mg/dL (1.6-2.4); NT PRO-BNP 37 pg/mL (<125); Potassium 4.1 mEq/L (3.5-5.1); Protein, Total 7.9 g/dL (6.4-8.2); Sodium Level 137 mEq/L (136-145); Troponin High Sensitivity 5.5 pg/mL (<58.9)
[2022-07-19 19:37] LABS: Bilirubin Direct < 0.1 mg/dL (0-0.2); Bilirubin Indirect, Calculated ND mg/dL (0.2-0.8)
--- NOTE | 2022-07-19 19:42 | ER ---
Nurse's Notes [facility] Name: Kevin Kaye Age: 61 yrs Sex: Male : 1960 Arrival Date: 07/19/2022 Time: 16:07 Bed 20 Private MD: Diagnosis: Acute embolism and thrombosis of unspecified deep veins of unspecified lower extremity-bilateral Presentation: 07/19 16:32 Chief complaint: Patient states: "I need to be admitted to the hospital for blood clots aa5 in my leg". Pt takes Eliquis for DVT. 16:32 Method Of Arrival: EMS: [facility] aa5 16:32 Coronavirus screen: At this time, the client does not indicate any symptoms associated aa5 with coronavirus-19. Ebola Screen: Patient denies travel to an Ebola-affected area in the 21 days before illness onset. Initial Sepsis Screen: Does the patient meet any 2 criteria? No. Patient's initial sepsis screen is negative. Does the patient have a suspected source of infection? No. Patient's initial sepsis screen is negative. Risk Assessment: Do you want to hurt yourself or someone else? Patient reports no desire to harm self or others. Onset of symptoms was 2022. 16:32 Acuity: ARI 3 aa5 Triage Assessment: 18:55 General: Appears in no apparent distress. comfortable, Behavior is calm, cooperative. db Pain: Complains of pain in left leg and right leg. Neuro: Level of Consciousness is awake, alert, obeys commands, Oriented to person, place, time. Historical: - Allergies: 16:31 PENICILLINS (rash); aa5 - PMHx: 16:31 Anxiety; Bipolar disorder; Depression; DVT; FACTOR 5; Schizophrenia; aa5 Screenin:40 [facility] ED Fall Risk Assessment (Adult) History of falling in the last 3 months, db including since admission No falls in past 3 months (0 pts) Confusion or Disorientation No (0 pts) Intoxicated or Sedated No (0 pts) Impaired Gait No (0 pts) Mobility Assist Device Used No (0 pt) Altered Elimination No (0 pt) Score/Fall Risk Level 0 - 2 = Low Risk Oriented to surroundings, Maintained a safe environment. Abuse screen: Denies threats or abuse. Denies injuries from another. Nutritional screening: No deficits noted. Tuberculosis screening: No symptoms or risk factors identified. Assessment: 17:45 Reassessment: called for pt in lobby to bring back to ER 20. Pt not in lobby or outside [facility] ER. 18:36 Reassessment: Patient appears in no apparent distress at this time. Patient and/or db family updated on plan of care and expected duration. Pain level reassessed. Patient is alert, oriented x 3, equal unlabored respirations, skin warm/dry/pink. Reassessment: patient reports drinks alcohol. General: Appears in no apparent distress. Behavior is anxious. Pain: Pain radiates to right leg and left leg. Neuro: Level of Consciousness is awake, alert, obeys commands, Oriented to person, place, time, situation. 18:40 Reassessment: contacted lab for blood draw. db 18:56 Reassessment: lab is at bedside. db 19:05 Reassessment: ASSUMED CARE OF PT. PT STANDING IN ROOM. REQUESTING PAIN MEDS AND COFFEE. jj7 VS STABLE. PAIN MEDS ORDERED. 19:25 Reassessment: PT OUTSIDE ROOM BEING DISRUPTIVE. CHARGE NURSE, ER DIRECTOR, AND CAM FENG PA SPEAKING TO PT TO STAY IN ROOM WHILE IN ER. PT WILL NE TRANSFERRED BACK TO [facility] AFTER ALL RESULTS GET BACK. PT GIVEN COFFEE AND ORDERED MEDS. PT CALMLY SITTING IN BED. VS STABLE. 19:50 Reassessment: PT STANDING OUTSIDE HIS ROOM TALKING TO HIMSELF. STATING HE DOESN'T WANT j TO JUST STAY IN THE ROOM LIKE A PRISONER. PT ENCOURAGED TO STAY IN ROOM. INFORMED THERE ARE OTHER PT'S AND HE CAN NOT BE WALKING AROUND SHOUTING IN THE ER. 20:13 Reassessment: PT STATES HE WANTS TO LEAVE HE DOES NOT WANT TO BE TRANSFERRED. CAM mancia PAGE INFORMED. PA AT BEDSIDE ENCOURAGING PT TO ALLOW TRANSFER TO HELP WITH HIS BLOOD CLOTS. PT STATES HE WILL STAY. 20:27 General: Behavior is agitated, uncooperative, PT NOW STATING HE WILL NOT STAY AND WANTS j7 TO BE TO GO HOME AGAIN. HERB PAGE INFORMED AND SPEAKS TO PT AGAIN. PT NOW STATES HE WILL BE TRANSFFERED.. 20:47 Reassessment: PT WALKING THROUGHOUT THE ER. STATING WE CAN'T KEEP HIM IN THE ROOM. gavino CHARGE NURSE INFORMED. HERB PAGE INFORMED. PT WALKED BACK INTO ROOM AND INFORMED HE HAS CLOTS AND HE SHOULD NOT BE WALKING AROUND IT COULD ALLOW THE CLOT TO BREAK LOOSE AND MIGRATE. PT STATES HE DOES NOT CARE AND HE JUST WANTS TO LEAVE AND GO TO HIS HOSPITAL OF CHOICE AND HE WILL KEEP THAT FROM US. HE WILL TAKE HIMSELF. HERB FENG INFORMED AGAIN. DR HUMPHREYS INFORMED AND STATES HE WILL SPEAK TO PT. 21:00 Reassessment: AFTER SPEAKING TO MD HUMPHREYS. PT DECIDED TO LEAVE AMA. AWARE. jj7 Vital Signs: 16:32 BP 134 / 71; Pulse 87; Resp 18 S; Temp 97.5(TE); Pulse Ox 98% on R/A; Weight 86.18 kg aa5 (R); Height 5 ft. 6 in. (R); 19:28 BP 158 / 80; Pulse 76; Resp 17; Pulse Ox 96% ; jj7 20:51 BP 172 / 79; Pulse 89; Resp 20; Pulse Ox 97% ; jj7 16:32 Body Mass Index 30.67 (86.18 kg, 167.64 cm) aa5 ED Course: 16:09 Patient arrived in ED. rg4 16:30 Cam Feng PA is PHCP. cp 16:30 Cam Fuentes MD is Attending Physician. cp 16:31 Arm band placed on. aa5 16:35 Triage completed. aa5 18:15 XRAY Chest (1 view) In Process Unspecified. EDMS 18:18 Ariela Pina, RN is Primary Nurse. db 18:30 Missed attempt(s): 22 gauge in left antecubital area. Bleeding controlled, band aid db applied, catheter tip intact. 18:37 Inserted saline lock: 22 gauge in right hand, using aseptic technique. ,using aseptic db technique. unable to collect blood. 21:00 No provider procedures requiring assistance completed. IV discontinued, intact, jj7 bleeding controlled, No redness/swelling at site. Pressure dressing applied. Administered Medications: 19:30 Drug: morphine IVP or IV 4 mg Route: IVP; Infused Over: 4 mins; Site: right hand; jj7 19:30 Drug: Ondansetron IVP 4 mg Route: IVP; Site: right hand; jj7 Medication: 21:00 VIS not applicable for this client. jj7 Outcome: 19:41 ER care complete, transfer ordered by . elisa 21:00 AMA Left before signing form. jj7 21:00 Condition: stable 21:02 Discharge ordered by . cp 21:25 Patient left the ED. xin Signatures: Dispatcher [employer] EDMelissa Higginbotham, RN Lesli Magdaleno, RN RN aa5 Cam Feng PA PA cp Garcia, Rubi rg4 Arnaldo Shaffer RN RN jj7 Ariela Pina RN Sunita Santos RN RN [id number]
--- NOTE | 2022-07-19 19:42 | EDPHYS ---
Physician Documentation [facility] Name: Kevin Kaye Age: 61 yrs Sex: Male : 1960 Arrival Date: 07/19/2022 Time: 16:07 Bed 20 Private MD: ED Physician Isaias Fuentes HPI: 07/19 17:00 This 61 yrs old Male presents to ER via EMS with complaints of Leg Pain. cp 17:00 The patient presents with pain, swelling. The complaints affect the right leg. Context: cp history of DVT right leg. recently discharged from [facility] after having thrombectomy procedure of left leg. reports increasing swelling and pain to right leg. Associated signs and symptoms: Pertinent negatives calf tenderness, fever, nausea, rash, swelling, tingling, weakness. 17:00 Patient recently seen in this ED for similar complaints and left the ED to go to [facility] after transfer was recommended. Historical: - Allergies: 16:31 PENICILLINS (rash); aa5 - PMHx: 16:31 Anxiety; Bipolar disorder; Depression; DVT; FACTOR 5; Schizophrenia; aa5 ROS: 17:05 Constitutional: Negative for body aches, chills, fever, poor PO intake. cp 17:05 Eyes: Negative for injury, pain, redness, and discharge. cp 17:05 Cardiovascular: Positive for edema, Negative for chest pain, palpitations. 17:05 Respiratory: Negative for shortness of breath, wheezing. 17:05 Abdomen/GI: Negative for abdominal pain, vomiting, diarrhea, constipation. 17:05 Back: Negative for injury or acute deformity, decreased range of motion, pain with movement. 17:05 : Negative for urinary symptoms. 17:05 Skin: Negative for rash. 17:05 Neuro: Negative for altered mental status, dizziness, headache, numbness, weakness. 17:05 All other systems are negative. Exam: 17:10 Constitutional: The patient appears in no acute distress, alert, awake, cp non-diaphoretic, non-toxic, well developed, well nourished. 17:10 Head/Face: Normocephalic, atraumatic. cp 17:10 Eyes: Periorbital structures: appear normal, Conjunctiva: normal, no exudate, no injection, Sclera: no appreciated abnormality, Lids and lashes: appear normal, bilaterally. 17:10 ENT: External ear(s): are unremarkable, Nose: is normal, Mouth: Lips: moist, Oral mucosa: pink and intact, moist, Posterior pharynx: is normal, airway is patent, no erythema, no exudate. 17:10 Neck: ROM/movement: is normal, is supple, without pain, no range of motions limitations. 17:10 Chest/axilla: Inspection: normal, Palpation: is normal, no crepitus, no tenderness. 17:10 Cardiovascular: Rate: normal, Rhythm: regular, Edema: ankle edema, that is moderate, JVD: is not appreciated. 17:10 Respiratory: the patient does not display signs of respiratory distress, Respirations: normal, no use of accessory muscles, no retractions, labored breathing, is not present, Breath sounds: are clear throughout, no decreased breath sounds, no stridor, no wheezing. 17:10 Abdomen/GI: Inspection: abdomen appears normal, Palpation: abdomen is soft and non-tender, in all quadrants. 17:10 Back: pain, is absent, ROM is normal. 17:10 Skin: mild erythema noted right leg with skin warmth. 17:10 Neuro: Orientation: to person, place \T\ time. Mentation: able to follow commands, Motor: moves all fours, strength is normal, Gait: is steady, at a normal pace. 18:31 ECG was reviewed by the Attending Physician. Vital Signs: 16:32 BP 134 / 71; Pulse 87; Resp 18 S; Temp 97.5(TE); Pulse Ox 98% on R/A; Weight 86.18 kg aa5 (R); Height 5 ft. 6 in. (R); 19:28 BP 158 / 80; Pulse 76; Resp 17; Pulse Ox 96% ; jj7 20:51 BP 172 / 79; Pulse 89; Resp 20; Pulse Ox 97% ; jj7 16:32 Body Mass Index 30.67 (86.18 kg, 167.64 cm) aa5 MDM: 16:30 Patient medically screened. cp 21:00 Data reviewed: vital signs, nurses notes, lab test result(s), EKG, radiologic studies, cp plain films, ultrasound. 21:00 Consideration of Admission/Observation Escalation of care including cp admission/observation considered. ED course: Patient refuses transfer for vascular consult to [facility] and/or any other facility at this time and requests discharge to home. 07/19 16:52 Order name: Basic Metabolic Panel cp 07/19 16:52 Order name: CBC with Diff; Complete Time: 19:23 cp 07/19 19:23 Interpretation: Normal except: RBC 3.80; HGB 10.7; HCT 33.2; RDW 18.7; MPV 6.7; MN% cp 12.8; BASO% 1.5. 07/19 16:52 Order name: LFT's cp 07/19 16:52 Order name: Magnesium cp 07/19 16:52 Order name: NT PRO-BNP cp 07/19 16:52 Order name: Troponin HS cp 07/19 16:52 Order name: Lactate w/ 2H reflex if indic. 07/19 16:52 Order name: XRAY Chest (1 view); Complete Time: 18:33 cp 07/19 18:33 Interpretation: Report review. 07/19 16:52 Order name: EKG; Complete Time: 16:53 cp 07/19 16:52 Order name: Cardiac monitoring; Complete Time: 18:55 cp 07/19 16:52 Order name: EKG - Nurse/Tech; Complete Time: 18:55 cp 07/19 16:52 Order name: IV Saline Lock; Complete Time: 18:55 cp 07/19 16:52 Order name: Labs collected and sent; Complete Time: 18:55 cp 07/19 16:52 Order name: O2 Per Protocol; Complete Time: 18:55 cp 07/19 16:52 Order name: O2 Sat Monitoring; Complete Time: 18:55 cp EC:31 Rate is 73 beats/min. Rhythm is regular. MI interval is normal. QRS interval is normal. cp QT interval is normal. T waves are Inverted in lead aVR. Interpreted by me. Reviewed by me. Administered Medications: 19:30 Drug: morphine IVP or IV 4 mg Route: IVP; Infused Over: 4 mins; Site: right hand; jj7 19:30 Drug: Ondansetron IVP 4 mg Route: IVP; Site: right hand; jj7 Disposition Summary: 07/19/22 21:02 Discharge Ordered Location: Home cp Problem: new(07/19/22 21:02) cp Symptoms: are unchanged(07/19/22 21:02) cp Condition: Stable(07/19/22 21:02) cp Diagnosis - Acute embolism and thrombosis of unspecified deep veins of unspecified lower cp extremity - bilateral Followup: cp - With: Private Physician - When: 1 - 2 days - Reason: Recheck today's complaints Forms: - Medication Reconciliation Form cp - Thank You Letter cp - Antibiotic Education cp - Prescription Opioid Use cp Signatures: Dispatcher [employer] EDMS Lesli Seay RN RN aa5 Isaias Feng PA PA cp Johnson, Juwairiyah RN RN jj7 Corrections: (The following items were deleted from the chart) 21:01 19:41 Doctor cp cp 21:01 19:41 UT-System cp cp 21:01 19:41 Higher level of care cp cp 21:01 19:41 Stable cp cp 21:01 19:41 new cp cp 21:01 19:41 have improved cp cp 21:01 19:41 Acute embolism and thrombosis of unspecified deep veins of lower extremity, cp bilateral cp
[2022-07-19 22:24] VITALS: BP 134/71; TEMP 97.5; O2SAT 98
--- NOTE | 2022-07-20 07:15 | EKG ---
Test Date: 2022-07-19 Test Time: 18:24:59 Preflight Mechanic: TM MEASUREMENT RESULTS: Intervals: Rate: 73 [place]: 164 QRSD: 80 QT: 382 QTc: 420 [place]: P: 61 [place]: 164 QRS: 61 T: 20 INTERPRETIVE STATEMENTS: Normal sinus rhythm Normal ECG Compared to ECG 07/16/2022 02:57:42 No significant changes Electronically Signed On 07-20-22 07:13:57 CDT by Paco Quach
== END 2022-07-19 21:25 | disposition home or self-care (01) ==
LOC: ER 16:07
DX: I82.403 Acute embolism and thrombosis of unspecified deep veins of lower extremity, bilateral (principal); D68.51 Activated protein C resistance; Z88.0 Allergy status to penicillin
CPT/HCPCS: 93005; 85025; 80048; 36415; 83735; 80076; 83605; 84484; 83880; 71045; 96375; 96374; 99284; J2405

== ENCOUNTER 2022-07-19 21:43 | Emergency (ER) | payer OTHER ==
--- OUTSIDE RECORDS SUMMARY | 2022-07-19 22:26 | XMS REPORT | Continuity of Care Document ---
:1960 Author Organization [facility] t Address [address] [facility]. [address] [place] [address] Care Team Providers Name Role Phone SHEY VAN Primary Care Physician Unavailable [id number] Attending Clinician Unavailable IZABELA PHAM Attending Clinician [...] Attending Clinician Kaden CARTER, Sunny Attending Clinician [phone] Fabienne CARTER, Olga Attending Clinician Kendra CARTER, Laureen Attending Clinician LAUREEN MOORE Attending Clinician Unavailable Doctor Unassigned, [place] Attending Clinician Unavailable ALLAN LYNCH Attending Clinician [...] Unavailable DAWSON CHOUDHURY Attending Clinician Unavailable , [facility] Sleep Lab Bed Attending Clinician Unavailable Susan Manjarrez PA-C Attending Clinician SUSAN MANJARREZ Attending Clinician Unavailable DELROY FARAH Attending Clinician Unavailable Delroy Farah MD Attending Clinician [facility] Sleep Lab Attending Clinician Unavailable Erma Morales RN Attending Clinician Unavailable MAGDALENE ROMERO Attending Clinician Unavailable Joel CONVENTION WORKER, Magdalene Attending Clinician Joeysuma CONVENTION WORKER, Lenstevesuma Attending Clinician CARLOS CORBIN Attending Clinician Unavailable Ladonna Bryant DO Attending Clinician MICHAEL SARGENT S Attending Clinician Unavailable Michael Fulton S Attending Clinician CLEVE_ Attending Clinician Unavailable BENITO LOPEZ Attending Clinician Unavailable Edgard Leo DO Attending Clinician Magali Curtis MD Attending Clinician Ted Lion MD Attending Clinician Allen Maravilla MD Attending Clinician Georgina Duncan MD Attending Clinician [phone] SIENNA POLK Attending Clinician Unavailable LADI RIBERA Attending Clinician Unavailable YASMINE BROOKE Attending Clinician Unavailable MD YASMINE BROOKE Attending Clinician Unavailable Pato Hill MD Attending Clinician Surgery, c General Attending Clinician Unavailable Sofia Malone MD Attending Clinician Surgery, [facility] Attending Clinician Unavailable Ramana Padron MD Attending Clinician RAMANA SHEA M.D., RAMANA Acevedo M.D. Attending Clinician Unavailable Christy Moya Attending Clinician [id number] Admitting Clinician Unavailable IZABELA PHAM Admitting Clinician [...] Clinician Perla CARTER, Georgina Key Admitting Clinician [phone] YASMINE BROOKE Admitting Clinician Unavailable MD YASMINE BROOKE Admitting Clinician Unavailable Pato Hill MD Admitting Clinician RAMANA SHEA M.D., RAMANA Acevedo Admitting Clinician Tasha ivey Payers Payer Name Policy Type Policy Number Effective Date Expiration Date S emmanuel [facility] [id number] [place] [id number] 2021 CLASSIC NO PREMIUM 00:00:00 HMO MEDICARE PART A [id number] 2003 00:00:00 [facility] [id number] [facility] 00:00:00 WELLCARE MAPS [id number] 2022 00:00:00 WELLCARE VALUE [id number] 2020 00:00:00 Problems Condition Condition Condition Status Onset Resolution Last Treating Co mments Source Name Details Category Date Date Treatment Clinician Date Cellulitis Cellulitis Disease Active U nivers of right of right 5-29 ity of lower lower 00:00: [place] extremity extremity 00 [facility] Acute Acute Disease Active [facility] metabolic metabolic 5-14 [facility] encephalop encephalop 00:00: [place] dical athy athy 00 Center Toxic Toxic Disease Active [facility] encephalop encephalop 5-14 Alison kes athy athy 00:00: Medical 00 Center Hydronephr Hydronephr Disease Active [facility] osis osis 5-09 [facility] 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 4-14 ity of 00:00: [address] Branch DVT (deep DVT (deep Disease Active Uni vers venous venous 4-14 [place] [address] [facility] Bilateral Bilateral Disease Active Uni vers sciatica sciatica 4-13 ity of 00:00: [place] [address] [facility] Branch Obesity Obesity Disease Active Univers (BMI [...] chronicity chronicity ally from request for surgery [id number] Lipoma of Lipoma of Disease Active Overview: Univers right right 4-12 Formattin ity of lower lower 00:00: g of this [place] extremity extremity 00 note Medi gordon might be Branch different from the original. Added automatic ally from request for surgery [id number] Lipoma of Lipoma of Disease Active Uni vers torso torso 4-06 ity of 00:00: [place] [address] Medical Branch Karmyn Kamryn Disease Active Univers 6-24 ity of 00:00: [place] [address] Medical Branch Rhabdomyol Rhabdomyol Disease Active U nivers ysis ysis 6-21 ity of 00:00: [place] [address] Medical Branch Presence Presence Disease Active Metho di of IVC of IVC 9[address] [facility] filter filter 00:00: Hospita 00 l Acute Acute Disease Active Methodi chest pain chest pain 9-15 st 00:00: Hospita 00 l Behavior Behavior Disease Active Unive rs problem problem 6-13 ity of 00:00: [place] [address] Medical Branch Cellulitis Cellulitis Disease Active U nivers and and 6-13 ity of abscess of abscess [place] foot foot 00 [place] Alteration Alteration Disease Active U nivers consciousn consciousn 6-13 it y of ess ess 00:00: [place] [address] Medical Branch TESTING TESTING Diagnosis Active 2014-07-28 Memoria FOR DVT FOR DVT 07-22 14:06:00 l Active 00:00: [place] 07/22/2014 00 [facility] 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 2-16 ity of disorder, disorder, [place] chronic chronic 00 Medical condition condition Bran ch with acute with acute exacerbati exacerbati on on Hypertensi Hypertens Problem Active 2014-07-25 Memoria ve raisa 07:19:48 l disorder, disorder, Herm britt systemic systemic arterial arterial (disorder) (disorder) Active Problem 07/25/2014 [facility] History of Past Illness Condition Condition Condition Status Onset Resolution Last Treating Co mments Source Name Details Category Date Date Treatment Clinician Date Discharge Problem 2014-07-25 2014-07-25 Memoria Diagnosis: Discharge 07-22 07:19:48 07:19:48 l Chronic Diagnosis: 05:00: Laureen nn back pain Chronic 00 back pain 07/22/2014 07/25/2014 [facility] Discharge Discharge Problem 2014-07-25 2014-07-25 Memoria Diagnosis: Diagnosis: 07-22 07:19:48 07:19:48 l Peripheral Peripheral 05:00: He rmann edema edema 00 07/22/2014 07/25/2014 [facility] Allergies, Adverse Reactions, Alerts Allergy Allergy Status [...] [facility] Social History Social Habit Start Date Stop Date Quantity Comments Source Gender identity [facility] Sexual orientation [facility] History SDOH University o f Alcohol Std Drinks [place] [facility] History SDOH University o f Alcohol Binge [place] Medic al Branch History SDOH Social Unive rsity of Connections [facility] Med ical Together Branch History SDOH Social Unive rsity of Connections [facility] Medical Branch History SDOH Social Unive rsity of Connections [place] [facility] Membership Branch History SDOH Social Unive rsity of Connections [place] [facility] Meetings Branch Exposure to 2022-07-01 2022-07-11 [...] Unive rsity of Connections Living 00:00:00 00:00:00 [place] [facility] History SDOH 2022-05-27 2022-05-27 0 University o f Physical Activity 00:00:00 00:00:00 [place] M edical DPW Branch History SDOH 2022-05-27 2022-05-27 0 University o f Physical Activity 00:00:00 00:00:00 [place] M edical MPS Branch History SDOH 2022-05-27 2022-05-27 5 University o f Financial 00:00:00 00:00:00 [place] [facility] History SDOH Food 2022-05-27 2022-05-27 1 Univers ity of Worry 00:00:00 00:00:00 [place] [facility] History SDVT Food 2022-05-27 2022-05-27 1 Univers ity of Scarcity 00:00:00 00:00:00 [place] [facility] History SDVT 2022-05-27 2022-05-27 2 University o f Transport Med 00:00:00 00:00:00 [place] Medic al Branch History SDVT 2022-05-27 2022-05-27 2 University o f Transport Non-Med 00:00:00 00:00:00 [place] M edical Branch History SDVT 2022-05-27 2022-05-27 2 University o f Housing Unable to 00:00:00 00:00:00 [place] M edical Pay Branch History [facility] 2022-05-27 2022-05-27 1 University o f Housing Places 00:00:00 00:00:00 [place] [facility] gordon Lived Branch History [facility] 2022-05-27 2022-05-27 2 University o f Housing Homeless 00:00:00 00:00:00 [facility] dical Last Year Branch Education 2022-05-26 2022-05-26 21 University of 00:00:00 00:00:00 [facility] Tobacco use and 2022-05-03 2022-05-03 User of Universit y of exposure 00:00:00 00:00:00 smokeless [facility] Tobacco Comment 2021-09-22 2021-09-22 dipper Universit y of 00:00:00 00:00:00 [facility] History of Social 2019-10-31 2019-10-[address] function 00:00:00 00:00:00 Hospital Alcohol intake 2019-10-29 2019-10-29 Lifetime Alevism 00:00:00 00:00:00 non-drinker Hospital (finding) History of tobacco 2014-08-25 Snuff User Univer sity of use 00:00:00 [facility] Sex Assigned At [birth year] [facility] 00:00:00 00:00:00 [facility] Center Smoking Status Start Date Stop Date Source Social History [facility] Medications Ordered Filled Start Stop Current Ordering Indication Dosage Frequency Signature Comments Components Source Medication Medication Date Date Medication? Clinician (SIG) Name Name clindamycin 2022- No 900mg 900 mg, IV Univers in 5 % 07-11 Piggyback, ity of dextrose 10:45: 11:47 ONCE, 1 [place] (CLEOCIN) 00 :00 dose, On Medica l 900 mg/50 Mon [place] mL IV 07/11/22 at piggyback 0545, RTU 900 mg Administer over 30 Minutes, 50 mL
R chelsea for Anti-Infec tive: Empiric Therapy for Suspected Infection< br>Empiric Therapy Site: Skin / Soft tissue
Duration of therapy: 5 days
Re stricted use approved by: ED PROVIDER cefTRIAXone 2022- No 1000mg 1,000 mg, Univers (ROCEPHIN) 07-05 IV ity of 1,000 mg in 14:15: 14:53 [place], [place] NaCl 0.9% 00 :00 ONCE, 1 Medical (NS) 100 mL dose, On Bran ch MINI-BAG [facility] 07/05/22 at 0915, Administer over 30 Minutes, [...] Branch e 07/05/22 at 0715, Routine OLANZapine 2022- Yes [id number] 5mg Take 1 Univers 5 mg tablet 5-23 tablet by ity of 00:00: mouth in [place] 00 the Medical morning. [place] OLANZapine 2022-0 Yes [id number] 5mg Take 1 Univers 5 mg tablet 5-23 tablet by ity of 00:00: mouth in [place] 00 the Medical morning. [place] OLANZapine 2022-0 Yes [id number] 5mg Take 1 Univers 5 mg tablet 5-23 tablet by ity of 00:00: mouth in [place] 00 the Medical morning. Branch OLANZapine 2022-0 Yes [id number] 5mg Take 1 Univers 5 mg tablet 5-23 tablet by ity of 00:00: mouth in [place] 00 the Medical morning. Branch OLANZapine 3-0 Yes [id number] 5mg Take 1 Univers 5 mg tablet 5-23 tablet by ity of 00:00: mouth in [place] 00 the Medical morning. Branch OLANZapine 3-0 Yes [id number] 5mg Take 1 Univers 5 mg tablet 5-23 tablet by ity of 00:00: mouth in [place] 00 the Medical morning. Branch OLANZapine 3-0 Yes [id number] 5mg Take 1 Univers 5 mg tablet 5-23 tablet by ity of 00:00: mouth in [place] 00 the Medical morning. Branch furosemide 2022-0 2022- Yes [id number] 40mg Take 1 Univers 40 mg 5-23 06-07 tablet by ity of tablet 00:00: 04:59 mouth [place] 00 :00 every Medical morning Branch and evening for 14 days. furosemide 2022-0 2022- Yes [id number] 40mg Take 1 Univers 40 mg 5-23 06-07 tablet by ity of tablet 00:00: 04:59 mouth [place] 00 :00 every Medical morning Branch and evening for 14 days. furosemide 2022-0 2022- Yes [id number] 40mg Take 1 Univers 40 mg 5-23 06-07 tablet by ity of tablet 00:00: 04:59 mouth [place] 00 :00 every Medical morning Branch and evening for 14 days. furosemide 2022-0 2022- Yes [id number] 40mg Take 1 Univers 40 mg 5-23 06-07 tablet by ity of tablet 00:00: 04:59 mouth [place] 00 :00 every Medical morning Branch and evening for 14 days. furosemide 2022-0 2022- Yes [id number] 40mg Take 1 Univers 40 mg 5-23 06-07 tablet by ity of tablet 00:00: 04:59 mouth [place] 00 :00 every Medical morning Branch and evening for 14 days. furosemide 2022-0 2022- Yes [id number] 40mg Take 1 Univers 40 mg 5-23 06-07 tablet by ity of tablet 00:00: 04:59 mouth [place] 00 :00 every Medical morning Branch and evening for 14 days. furosemide 2022-0 2022- Yes [id number] 40mg Take 1 Univers 40 mg 5-23 06-07 tablet by ity of tablet 00:00: 04:59 mouth [place] 00 :00 every Medical morning Branch and evening for 14 days. cephALEXin 2023-0 2023- Yes [id number] 1000mg Take 2 Univers 500 mg 07-05 [id number] capsules ity of capsule 00:00: 04:59 by mouth [place] 00 :00 in the Medical morning Branch and 2 capsules in the evening. Do all this for 7 days. cephALEXin 202-0 2023- Yes [id number] 1000mg Take 2 Univers 500 mg 07-05 [id number] capsules ity of capsule 00:00: 04:59 by mouth [place] 00 :00 in the Medical morning Branch and 2 capsules in the evening. Do all this for 7 days. cephALEXin 2023-0 2023- Yes [id number] 1000mg Take 2 Univers 500 mg 07-05 [id number] capsules ity of capsule 00:00: 04:59 by mouth [place] 00 :00 in the Medical morning Branch and 2 capsules in the evening. Do all this for 7 days. cephALEXin 202-0 3- Yes [id number] 1000mg Take 2 Univers 500 mg 07-05 [id number] capsules ity of capsule 00:00: 04:59 by mouth [place] 00 :00 in the Medical morning Branch and 2 capsules in the evening. Do all this for 7 days. cephALEXin 2022-0 3- Yes [id number] 1000mg Take 2 Univers 500 mg 07-05 [id number] capsules ity of capsule 00:00: 04:59 by mouth [place] 00 :[address] [facility] morning Branch and 2 capsules in the evening. Do all this for 7 days. apixaban 5 2022-0 Yes [id number] 5mg Take 1 Unive rs mg tablet 5-22 tablet by ity o f 00:00: mouth in [address] morning [place] and 1 tablet in the evening. Indication s: history of deep vein thrombosis apixaban 5 3-0 Yes [id number] 5mg Take 1 Unive rs mg tablet 5-22 tablet by ity o f 00:00: mouth in [address] and 1 tablet in the evening. Indication s: history of deep vein thrombosis apixaban 5 2022-0 Yes [id number] 5mg Take 1 Unive rs mg tablet 5-22 tablet by ity o f 00:00: mouth in [address] morning [place] and 1 tablet in the evening. Indication s: history of deep vein thrombosis apixaban 5 3-0 Yes [id number] 5mg Take 1 Unive rs mg tablet 5-22 tablet by ity o f 00:00: mouth in [place] [address] the Medical morning Branch and 1 tablet [...] by ity o f 00:00: mouth in [place] [address] the Medical morning Branch and 1 tablet in the evening. Indication s: history of deep vein thrombosis apixaban 5 3-0 Yes 5523 5mg Take 1 Unive rs mg tablet 5-22 tablet by ity o f 00:00: mouth in [place] [address] [facility] morning Branch and 1 tablet in the evening. Indication s: history of deep vein thrombosis apixaban 5 3-0 Yes 5523 5mg Take 1 Unive rs mg tablet 5-22 tablet by ity o f 00:00: mouth in [place] [address] [facility] morning Branch and 1 tablet in the evening. Indication s: history of deep vein thrombosis apixaban 5 3-0 Yes 5523 5mg Take 1 Unive rs mg tablet 5-22 tablet by ity o f 00:00: mouth in [place] [address] the Medical morning Branch and 1 tablet in the evening. Indication s: history of deep vein thrombosis apixaban 5 3-0 Yes 5523 5mg Take 1 Unive rs mg tablet 5-22 tablet by ity o f 00:00: mouth in [place] [address] [facility] morning Branch and 1 tablet in the [...] mouth Center nightly. gabapentin 2023-0 Yes 300mg Q.[id number] Take [address] (NEURONTIN) 5-11 [id number] capsule [facility] 300 MG 18:24: 3D (300 [...] mouth Center nightly. gabapentin 2023-0 Yes 300mg Q.[id number] Take [address] (NEURONTIN) 5-11 [id number] capsule [facility] 300 MG 18:24: 3D (300 [...] ity of 00:00: Medical Branch traMADoL 50 3-0 Yes Univer s mg [...] s mg tablet 06-13 ity of 00:00: [place] [facility] traMADoL 50 2022-0 Yes Univer s mg tablet 06-13 ity of 00:00: [place] [facility] traMADoL 50 2022-0 Yes Univer s mg tablet 06-13 ity of 00:00: [place] [facility] traMADoL 50 2022-0 Yes Univer s mg tablet 06-13 ity of 00:00: [place] [facility] traMADoL 50 2022-0 Yes Univer s mg tablet 06-13 ity of 00:00: [place] [facility] traMADoL 50 2022-0 Yes Univer s mg tablet 06-13 ity of 00:00: [place] [facility] tc 2022-0 2022- No [id number] 25mCi 25 Univer s 99m-medrona 4- 04-25 [...] Take 1 Univ ers mg tablet 06-07 05-26 tablet by ity of 00:00: 04:59 mouth in [place] 00 :00 the Medical morning Branch and 1 tablet in the evening. Do all this for 30 days. Indication s: history of deep vein thrombosis apixaban 2022-2022- Yes [id number] 5mg Take 1 Univ [...] of deep vein thrombosis acetaminoph 2022- Yes [id number] 500mg Take 1 Univers en 500 mg 4-25 05-06 tablet by ity of tablet 00:00: 04:59 mouth [place] 00 :00 every 6 Medical (six) Branch hours as needed for Pain for up to 10 days. acetaminoph 2022- Yes [id number] 500mg Take 1 Univers en 500 mg 4-25 05-06 tablet by ity of tablet 00:00: 04:59 mouth [place] 00 :00 every 6 Medical (six) Branch hours as needed for Pain for up to 10 days. acetaminoph 2022- Yes [id number] 500mg Take 1 Univers en 500 mg 4-25 05-06 tablet by ity of tablet 00:00: 04:59 mouth [place] 00 :00 every 6 Medical (six) Branch hours as needed for Pain for up to 10 days. acetaminoph 2022- Yes [id number] 500mg Take 1 Univers en 500 mg 4-25 05-06 tablet by ity of tablet 00:00: 04:59 mouth [place] 00 :00 every 6 Medical (six) Branch hours as needed for Pain for up to 10 days. acetaminoph 2022- Yes [id number] 500mg Take 1 Univers en 500 mg 4-25 05-06 tablet by ity of tablet 00:00: 04:59 mouth [place] 00 :00 every 6 Medical (six) Branch hours as needed for Pain for up to 10 days. acetaminoph 2022- Yes [id number] 500mg Take 1 Univers en 500 mg 4-25 05-06 tablet by ity of tablet 00:00: 04:59 mouth [place] 00 :00 every 6 Medical (six) Branch hours as needed for Pain for up to 10 days. acetaminoph 2022- Yes [id number] 500mg Take 1 Univers en 500 mg 4-25 05-06 tablet by ity of tablet 00:00: 04:59 mouth [place] 00 :00 every 6 Medical (six) Branch hours as needed for Pain for up to 10 days. docusate 2022- Yes [id number] 100mg Take 1 Univers 100 mg 4-25 [...] Indication s: acute pain polyethylen 2022- Yes [id number] 17g Take 1 Univers e glycol 4-25 05-03 Packet by ity o f 3350 17 00:00: 04:59 mouth [place] gram powder 00 :00 every 24 Medi gordon (twenty-fo Branch ur) hours as needed for Constipati on for up to 7 days. docusate 2022- Yes [id number] 100mg Take 1 Univers 100 mg 4-25 05-03 capsule by ity of capsule 00:00: 04:59 mouth in [place] 00 :[address] [facility] morning Branch for 7 days. HYDROcodone 2022- Yes [id number] 1{tbl} Take 1 U nivers -acetaminop 4-25 05-03 tablet by it y of hen 10-325 00:00: 04:59 mouth [place] mg tablet 00 :00 every 6 Medical (six) Branch hours as needed for Pain (scale 7-10) or Pain (scale 4-6) for up to 7 days. Indication s: acute pain polyethylen 2022- Yes [id number] 17g Take 1 Univers e glycol 4-25 05-03 Packet by ity o f 3350 17 00:00: 04:59 mouth [place] gram powder 00 :00 every 24 Medi gordon ([facility] Branch ur) hours as needed for Constipati on for up to 7 days. docusate 2022- Yes [id number] 100mg Take 1 Univers 100 mg 4-25 05-03 capsule by ity of capsule 00:00: 04:59 mouth in [place] 00 :[address] [facility] morning Branch for 7 days. HYDROcodone 2022- Yes [id number] 1{tbl} Take 1 U nivers -acetaminop 4-25 05-03 tablet by it y of hen 10-325 00:00: 04:59 mouth [place] mg tablet 00 :00 every 6 Medical (six) Branch hours as needed for Pain (scale 7-10) or Pain (scale 4-6) for up to 7 days. Indication s: acute pain polyethylen 2022- Yes [id number] 17g Take 1 Univers e glycol 4-25 05-03 Packet by ity o f 3350 17 00:00: 04:59 mouth [place] gram powder 00 :00 every 24 Medi gordon ([facility] ur) hours as needed for Constipati on for up to 7 days. docusate 2022- Yes [id number] 100mg Take 1 Univers 100 mg 4-25 [...] Indication s: acute pain polyethylen 2022- Yes [id number] 17g Take 1 Univers e glycol 06-07- [...] 14 Starting Medi gordon (CLAUDIA-MEN[facility] at [place] 0003, Until Discontinu ed, Routine, Sore throat benzocaine- 0 Yes 1{lozen 1 [place], Univers menthoL 4-23 ge} Oral, ity of (CEPACOL 05:03: Q4HPRN, [place] SORE THROAT 14 Starting Medi gordon (CLAUDIA-MEN)) [facility]22 at [place] 0003, Until Discontinu ed, Routine, Sore throat iopamidol 2022- No [id number] 80mL 80 mL, Univers (ISOVUE 06-05 Intravenou ity o f 370-500 mL) 01:36: 01:20 s, ONCE, 1 [place] injection 00 :00 dose, On Medica l 80 mL [facility] 06/04/22 at 5, Routine apixaban 2022- Yes 10mg [Order 1 Univ ers (ELIQUIS) 06-05 Start] ity of tablet 10 01:00: 00:59 Name: [place] mg 00 :00 apixaban Medical (ELIQUIS) Branch tablet 10 mg Signed Summary: 10 mg, Oral, BID, 14 doses, First dose on [facility] 06/04/22 at 1999, Last dose on [facility] 06/11/22 at 0800, Routine
Indicatio ns: DVT/PE [Order 1 End] [Order 2 Start] Name: apixaban (ELIQUIS) tablet 5 mg Signed Summary: 5 mg, Oral, BID, First dose on [facility] 06/11/22 at 1999, Until Discontinu ed, Routine
Indicatio ns: DVT/PE [Order 2 End] apixaban 2022- Yes 10mg [Order 1 Univ ers (ELIQUIS) 06-05 Start] ity of tablet 10 01:00: 00:59 Name: [place] mg 00 :00 apixaban Medical (ELIQUIS) Branch tablet 10 mg Signed Summary: 10 mg, Oral, BID, 14 doses, First dose on [facility] 06/04/22 at 1999, Last dose on [facility] 06/11/22 at 0800, Routine
Indicatio ns: DVT/PE [Order 1 End] [Order 2 Start] Name: apixaban (ELIQUIS) tablet 5 mg Signed Summary: 5 mg, Oral, BID, First dose on [facility] 06/11/22 at 1999, Until Discontinu ed, Routine
Indicatio ns: DVT/PE [Order 2 End] bisacodyL Yes 10mg 10 mg, Univer s (DULCOLAX) 06-04 Rectal, ity of suppository 15:25: QDAILYPRN, [place] 10 mg 51 Starting Medical on [facility] 06/04/22 at 1025, Until Discontinu ed, Routine, Constipati on bisacodyL Yes 10mg 10 mg, Univer s (DULCOLAX) 06-04 Rectal, ity of suppository 15:25: QDAILYPRN, [place] 10 mg 51 Starting Medical on [facility] 06/04/22 at 1025, Until Discontinu ed, [...] 1000 mL for 00 :55 06/03/22 at Ia dical vascular 0925, Branch Intra-op heparin 0 [...] INITIAL INFUSION RATE.&nbsp ; _ &nb sp;FOR [facility], [facility], AND [facility] ONLY &nbs p; - aPTT < 35: & nbsp;Bolus 5000 units, increase rate 300 units/hr&n bsp; - aPTT 35-44:&nbs p; Brain brigid 3000 units, increase rate [...] s mg 00 First dose Medical on [facility] 05/31/22 at 0900, Until Discontinu ed, Routine docusate 2022-0 Yes 100mg 100 mg, Unive rs (COLACE) 418 Oral, ity of capsule 100 14:00: [place]ILY[place] 00 First dose Medical on [facility] 05/31/22 at 0900, Until Discontinu ed, Routine docusate 0 Yes 100mg 100 mg, Unive rs (COLACE) -18 Oral, ity of capsule 100 14:00: [place], [place] mg 00 First dose Medical on [facility] 05/31/22 at 0900, Until Discontinu ed, Routine docusate 0 Yes 100mg 100 mg, Unive rs (COLACE) -18 Oral, ity of capsule 100 14:00: [place], [place] mg 00 First dose Medical on [facility] 05/31/22 at 0900, Until Discontinu ed, Routine [...] INITIAL INFUSION RATE.&nbsp ; _ &nb sp;FOR [facility], AND [facility] ONLY &nbs p; - aPTT < [...] of ) injection 02:47: on Mon05/30/[address] Until Discontinu ed, Routine, Intra-op iopamidol 2022-0 Yes PRN, Univers (ISOVUE-300 4-18 Starting ity of ) injection 02:47: on Mon05/30/[address] Until Discontinu ed, Routine, Intra-op iopamidol 2022-0 Yes PRN, Univers (ISOVUE-300 4-18 Starting ity of ) injection 02:47: on Mon05/30/22 at [place] [address], [place] Until Discontinu ed, Routine, Intra-op heparin 2022-0 [...] Starting infusion on Mon05/30/22 at 0900
[place] [facility]. Location: left lower extremity [...] Starting infusion on Mon05/30/22 at 0900
[place] [facility] [place] [facility]. Location: Right lower extremity sheath. Total infusion max dose is 4 mg/hr from all infusion sites combined.< br> KCL 2022-0 2023- No 20meq 20 mEq, Univers (KLOR-CON 05-30 Oral, ity of M20) tablet 11:15: 11:12 ONCE, 1 [place] 20 mEq 00 :00 dose, On [facility] 05/30/23 at 0615, Routine heparin 2022-0 2022- No 0U/h 0-3,050 Univer s 25,000 05-30 04-17 Units/hr ity of Units/250 06:04: 14:01 (0-30.5 [place] mL 50 :49 mL/hr), IV Medical (Premixed Infusion, Branc h Bag) in TITRATE, 0.45 % NS Parameters in Admin. Instr., Starting on [facility] 05/30/22 at 0104
In itiate dosing:&nb sp; [...] INITIAL INFUSION RATE.&nbsp ; _ &nb sp;FOR [facility], [facility], AND [facility] ONLY &nbs p; - aPTT [...] 03:31: Push, [place] 10 mg 53 Q4HPRN, [facility] Starting Branch on [place] 05/29/22 at 2231, Until Discontinu ed, Routine, SBP > 160 and HR > 70 labetaloL 2022-0 Yes 10mg 10 mg, Univer s (NORMODYNE) 4-17 Slow IV ity o f injection 03:31: Push, [place] 10 mg 53 Q4HPRN, [facility] Starting Branch on [place] 05/29/22 at 2231, Until Discontinu ed, Routine, SBP > 160 and HR > 70 traMADoL 2022-0 Yes 50mg 50 mg, Univers (ULTRAM) 4-17 Oral, Q6H, ity o f tablet 50 01:45: First dose [place] mg 00 on [facility] 05/29/22 at Branch 2044, Until Discontinu ed, Routine traMADoL 2022-0 Yes 50mg 50 mg, Univers (ULTRAM) 4-17 Oral, Q6H, ity o f tablet 50 01:45: First dose [place] mg 00 on [facility] 05/29/22 at Branch 2044, Until Discontinu ed, Routine traMADoL 2022-0 Yes 50mg 50 mg, Univers (ULTRAM) 4-17 Oral, Q6H, ity o f tablet 50 01:45: First dose [place] mg 00 on [facility] 05/29/22 at Branch 2044, Until Discontinu ed, Routine traMADoL 2022-0 Yes 50mg 50 mg, Univers (ULTRAM) 4-17 Oral, Q6H, ity o f tablet 50 01:45: First dose [place] mg 00 on [facility] 05/29/22 at Branch 2044, Until Discontinu ed, Routine HYDROcodone 2022-0 Yes 1{tbl} 1 tablet, Univers -acetaminop 4-17 Oral, ity of hen (NORCO) 01:37: Q6HPRN, [place] as 10-325 mg 54 Starting Medica l tablet 1 on [facility] tablet 05/29/22 at 2036, Until Discontinu ed, [...] as 5) 5-325 mg 06 :07 Starting [facility] tablet 1 on [place] Branch tablet 05/29/22 at 1203, Until 05/29/22 [...] [place] 00 05/29/22 at [facility] 0850, [place] Until Discontinu ed, Routine, Intra-op iodixanoL 2022-0 Yes PRN, Univers (VISIPAQUE 4-16 Starting ity o f 270-150 mL) 13:50: [place] 00 05/29/22 at [facility] 0850, Branch Until Discontinu ed, Routine, Intra-op iodixanoL 2023-0 Yes PRN, Univers (VISIPAQUE 4-16 Starting ity o f 270-150 mL) 13:50: [place] injection 05/29/22 at [facility] 0850, Branch Until Discontinu ed, Routine, Intra-op iodixanoL 2022-0 Yes PRN, Univers (VISIPAQUE 4-16 Starting ity o f 270-150 mL) 13:50: [place] 05/29/22 at [facility] 0850, Branch Until Discontinu ed, Routine, Intra-op lidocaine 2022-0 Yes PRN, Univers 1% (PF) 4-16 Starting ity of (XYLOCAINE) 13:00: [place] 05/29/22 at [facility] 0800, Branch Until Discontinu ed, Routine, Intra-op lidocaine 2022-0 Yes PRN, Univers 1% (PF) 4-16 Starting ity of (XYLOCAINE) 13:00: [place] 05/29/22 at [facility] 0800, Branch Until Discontinu ed, Routine, Intra-op lidocaine 2022-0 Yes PRN, Univers 1% (PF) 4-16 Starting ity of (XYLOCAINE) 13:00: on [place] injection 05/29/22 at [facility] 0800, Branch Until Discontinu ed, Routine, Intra-op lidocaine 2022-0 Yes PRN, Univers 1% (PF) 4-16 Starting ity of (XYLOCAINE) 13:00: [place] 05/29/22 at [facility] 0800, Branch Until Discontinu ed, Routine, Intra-op alteplase 3-0 2022- No 1mg/h 1 mg/hr Uni vers [...] No 2mg 2 mg, Slow Univers mg/mL) 05-29 04-15 IV [place], ity of injection 2 00:15: 23:36 ONCE, 1 [place] mg 00 :00 dose, On Medical Sat [place] 05/28/22 at 1915, Routine HEPARIN 2022- No [...] Rang e, Dosing and Testing: &nbs p;FOR [facility], [facility], AND [facility] ONLY &nbs p; [...] ity of unit/mL, 10 16:23: , Starting [place] mL vial) 36 on [facility] for 05/28/22 at Branch Rebolusing 1123, Until Discontinu ed, Routine
Dosing based on aPPT testing parameters (refer to continuous heparin drip order).
sulfur 2022- No [id number] 5mL 5 mL, Univ ers hexafluorid 05-27 Intravenou i ty of e microsphr 18:30: 18:30 s, ONCE, 1 [place] (LUMASON) 00 :00 dose, On Medica l injection 5 Fri [place] mL 05/27/22 at 1330, Routine
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 medication : HAROON MOYER enoxaparin 2022- No 1mg/kg 90 mg Uni vers (LOVENOX) 05-27 (rounded ity o f injection 14:07: 16:25 [place] 86.5 [place] 90 mg 50 :10 mg = 1 Medical mg/kg Branch ?86.5 kg), [facility], First dose on Mon05/27/22 at 2000, [...] Until Discontinu ed, Routine iopamidol 2022- No [id number] 100mL 100 mL, Univers (ISOVUE 05-27 [id number] Intravenou ity of 370-500 mL) 12:15: 12:15 [...] :15 Starting Medi [place] tablet 1 on [facility] tablet 05/26/22 at 2344, Until 05/29/22 at 1203, Routine, Pain (scale 4-6) ondansetron 3-0 Yes 4mg 4 mg, Slow Univers (ZOFRAN 4-14 IV [place], ity of (PF)) 01:30: Q6HPRN, [place] injection 4 58 Starting Medi gordon mg on [facility] Branch 05/26/22 at 2030, Until Discontinu ed, Routine, Nausea and Vomiting (N/V) ondansetron 2023-0 Yes 4mg 4 mg, Slow Univers (ZOFRAN 4-14 IV [place], ity of (PF)) 01:30: Q6HPRN, [place] injection 4 58 Starting Medi [place]ordon mg on [facility] Branch 05/26/22 at 2030, Until Discontinu ed, Routine, Nausea and Vomiting (N/V) ondansetron 3-0 Yes 4mg 4 mg, Slow Univers (ZOFRAN 4-14 IV [place], ity of (PF)) 01:30: Q6HPRN, [place] injection 4 58 Starting Medi gordon mg on [facility] Branch 05/26/22 at 2030, Until Discontinu ed, Routine, Nausea and Vomiting (N/V) ondansetron 3-0 Yes 4mg 4 mg, Slow Univers (ZOFRAN 4-14 IV [place], ity of (PF)) 01:30: Q6HPRN, [place] injection 4 58 Starting Medi gordon mg on [facility] Branch 05/26/22 at 2030, Until Discontinu [...] [place] mg 00 :00 dose, On [facility] Branch 05/26/22 at 1845, Routine gabapentin No 300mg 300 mg, Un mary (NEURONTIN) 05-26 Oral, ity of capsule 300 23:00: 23:10 ONCE, 1 [place] mg 00 :00 dose, On [facility] Branch 05/26/22 at 1800, MICHELLE methylpredn No 125mg 125 mg, U nivers isolone sod 05-26 Slow IV ity of succ 22:15: 21:28 Push [place] (SOLU-MEDRO 00 :00 ONCE, 1 Medic al L) dose, On Branch injection [place] 125 mg 05/26/22 at 1715, MICHELLE furosemide No 40mg 40 mg, IV U nivers (LASIX) 05-26 Push, ity of injection 21:15: 21:19 ONCE, 1 [place] 40 mg 00 :00 dose, On [facility] Branch 05/26/22 at 1615, MICHELLE ketorolac No 30mg 30 mg, Unive rs (TORADOL) 05-23 Intramuscu ity of injection 23:00: 22:35 [place], ONCE, [place] 30 mg 00 :00 1 dose, On [facility] Branch 05/23/22 at 1800, Routine diazePAM No 2.5mg 2.5 mg, Univ ers (VALIUM) 05-23 Oral, ity of tablet 2.5 22:45: 23:09 ONCE, 1 [place] mg 00 :00 dose, On [facility] Branch 05/23/22 at 1745, MICHELLE HYDROcodone 2022- No 1{tbl} 1 tablet, Univers -acetaminop 05-23 Oral, ONCE i ty of hen (NORCO) 11:45: 11:00 NOW, 1 [place] 10-325 mg 00 :00 dose, On Medica l tablet 1 [facility] tablet 05/23/22 at 0645, MICHELLE gabapentin 2022-0 202- No 600mg 600 mg, Un mary (NEURONTIN) 05-23 Oral, ity of capsule 600 09:00: 09:09 ONCE, 1 [place] mg 00 :00 dose, On Medical [facility] Branch 05/23/22 at 0400, MICHELLE dexamethaso 2022-0 2022- No 10mg 10 mg, Uni vers ne sod phos 05-23 Intramuscu i ty of PF 09:00: 09:07 lar, ONCE, [place] injection 00 :00 1 dose, On Medi gordon 10 mg [facility] 05/23/22 at 0400, 1 mL gabapentin 2023-0 Yes [id number] 300mg Take 1 Univers 300 mg 4-10 capsule by ity of capsule 00:00: mouth in [address] and 1 capsule at noon and 1 capsule in the evening. gabapentin 2023-0 Yes [id number] 300mg Take 1 [facility] 300 mg 4-10 capsule by ity of capsule 00:00: mouth in [address] and 1 capsule at noon and 1 capsule in the evening. gabapentin 2023-0 Yes [id number] 300mg Take 1 [facility] 300 mg 4-10 capsule by ity of capsule 00:00: mouth in [address] and 1 capsule at noon and 1 capsule in the evening. ketorolac 2023-0 Yes [id number] 10mg Take 1 U nivers 10 mg 4-10 tablet by ity of tablet 00:00: mouth [place] [address] every 6 Medical (six) Branch hours as needed for Pain (scale 7-10). gabapentin 2023-0 Yes [id number] 300mg Take 1 Univers 300 mg 4-10 capsule by ity of capsule 00:00: mouth in [address] and 1 capsule at noon and 1 capsule in the evening. ketorolac 2023-0 Yes [id number] 10mg Take 1 U nivers 10 mg 4-10 tablet by ity of tablet 00:00: mouth [place] 00 every 6 Medical (six) Branch hours as needed for Pain (scale 7-10). gabapentin 2023-0 Yes [id number] 300mg Take 1 Univers 300 mg 4-10 capsule by ity of capsule 00:00: mouth in [place] 00 the Medical morning Branch and 1 capsule at noon and 1 capsule in the evening. ketorolac 2023-0 Yes [id number] 10mg Take 1 U nivers 10 mg 4-10 tablet by ity of tablet 00:00: mouth [place] 00 every 6 Medical (six) Branch hours as needed for Pain (scale 7-10). gabapentin 2023-0 Yes [id number] 300mg Take 1 Univers 300 mg 4-10 capsule by ity of capsule 00:00: mouth in [place] 00 the Medical morning Branch and 1 capsule at noon and 1 capsule in the evening. ketorolac 2023-0 Yes [id number] 10mg Take 1 U nivers 10 mg 4-10 tablet by ity of tablet 00:00: mouth [place] 00 every 6 Medical (six) Branch hours as needed for Pain (scale 7-10). gabapentin 2023-0 Yes [id number] 300mg Take 1 Univers 300 mg 4-10 capsule by ity of capsule 00:00: mouth in [place] 00 the Medical morning Branch and 1 capsule at noon and 1 capsule in the evening. ketorolac 2023-0 Yes [id number] 10mg Take 1 U nivers 10 mg 4-10 tablet by ity of tablet 00:00: mouth [place] 00 every 6 Medical (six) Branch hours as needed for Pain (scale 7-10). gabapentin 2023-0 Yes [id number] 300mg Take 1 Univers 300 mg 4-10 capsule by ity of capsule 00:00: mouth in [place] 00 the Medical morning Branch and 1 capsule at noon and 1 capsule in the evening. ketorolac 2023-0 Yes [id number] 10mg Take 1 U nivers 10 mg 4-10 tablet by ity of tablet 00:00: mouth [place] 00 every 6 Medical (six) Branch hours as needed for Pain (scale 7-10). gabapentin 2023-0 2023- No [id number] 300mg Take 1 Univers 300 mg 4-10 04-25 capsule by ity of capsule 00:00: 00:00 mouth in [place] 00 :00 the Medical morning Branch and 1 capsule at noon and 1 capsule in the evening. methocarbam 0 2022- No [id number] 500mg Take 1 Univers oL 500 mg 4-10 -25 tablet by ity of tablet 00:00: 00:00 mouth 4 [place] 00 :00 (four) Medical times Branch daily for 7 days. ketorolac 2022-0 2022- No [id number] 10mg Take 1 Univers 10 mg 4-10 04-25 tablet by ity of tablet 00:00: 00:00 mouth [place] 00 :00 every 6 Medical (six) Branch hours as needed for Pain (scale 7-10). methocarbam 0 2022- Yes [id number] 500mg Take 1 Univers oL 500 mg 4-10 -18 tablet by ity of tablet 00:00: 04:59 mouth 4 [place] 00 :00 (four) Medical times Branch daily for 7 days. methocarbam 2022- Yes [id number] 500mg Take 1 Univers oL 500 mg 4-10 -18 tablet by ity of tablet 00:00: 04:59 mouth 4 [place] 00 :00 (four) Medical times Branch daily for 7 days. methocarbam 2022-0 2022- Yes [id number] 500mg Take 1 Univers oL 500 mg 4-10 -18 tablet by ity of tablet 00:00: 04:59 mouth 4 [place] 00 :00 (four) Medical times Branch daily for 7 days. methocarbam 2022-2022- No [id number] 500mg Take 1 Univers oL 500 mg 4-10 -18 tablet by ity of tablet 00:00: 04:59 mouth 4 [place] 00 :00 (four) Medical times Branch daily for 7 days. methocarbam 2022- No [id number] 500mg Take 1 Univers oL 500 mg 4-10 04-18 tablet by ity of tablet 00:00: 04:59 mouth 4 [place] 00 :00 (four) Medical times Branch daily for 7 days. mirtazapine 2022-0 Yes [id number] 45mg Take 1 Univers 45 mg 2-23 tablet by ity of tablet 00:00: mouth at [place] 00 bedtime. Medical Branch mirtazapine 3-0 Yes [id number] 45mg Take 1 Univers 45 mg 2-23 tablet by ity of tablet 00:00: mouth at [place] [address] bedtime. Medical Branch mirtazapine 3-0 Yes [id number] 45mg Take 1 Univers 45 mg 2-23 tablet by ity of tablet 00:00: mouth at [place] [address] bedtime. Medical Branch mirtazapine 3-0 Yes [id number] 45mg Take 1 Univers 45 mg 2-23 tablet by ity of tablet 00:00: mouth at [place] [address] bedtime. Medical Branch mirtazapine 3-0 Yes [id number] 45mg Take 1 Univers 45 mg 2-23 tablet by ity of tablet 00:00: mouth at [place] [address] bedtime. Medical Branch mirtazapine 3-0 Yes [id number] 45mg Take 1 Univers 45 mg 2-23 tablet by ity of tablet 00:00: mouth at [place] [address] bedtime. Medical Branch mirtazapine 2022-0 Yes [id number] 45mg Take 1 Univers 45 mg 2-23 tablet by ity of tablet 00:00: mouth at [place] [address] bedtime. Medical Branch mirtazapine 2022-0 Yes [id number] 45mg Take 1 Univers 45 mg 2-23 tablet by ity of tablet 00:00: mouth at [place] [address] bedtime. Medical Branch mirtazapine 2022-0 Yes [id number] 45mg Take 1 Univers 45 mg 2-23 tablet by ity of tablet 00:00: mouth at [place] [address] bedtime. Medical Branch mirtazapine 2022-0 Yes [id number] 45mg Take 1 Univers 45 mg 2-23 tablet by ity of tablet 00:00: mouth at [place] [address] bedtime. Medical Branch mirtazapine 3-0 Yes [id number] 45mg Take 1 Univers 45 mg 2-23 tablet by ity of tablet 00:00: mouth at [place] [address] bedtime. Medical Branch mirtazapine 3-0 Yes [id number] 45mg Take 1 Univers 45 mg 2-23 tablet by ity of tablet 00:00: mouth at [place] [address] bedtime. Medical Branch mirtazapine 3-0 Yes [id number] 45mg Take 1 Univers 45 mg 2-23 tablet by ity of tablet 00:00: mouth at [place] [address] bedtime. Medical Branch mirtazapine 3-0 Yes [id number] 45mg Take 1 Univers 45 mg 2-23 tablet by ity of tablet 00:00: mouth at [place] [address] bedtime. Medical Branch mirtazapine 2022-0 Yes [id number] 45mg Take 1 Univers 45 mg 2-23 tablet by ity of tablet 00:00: mouth at [place] [address] bedtime. Medical Branch mirtazapine 2022-0 Yes [id number] 45mg Take 1 Univers 45 mg 2-23 tablet by ity of tablet 00:00: mouth at [place] [address] bedtime. Medical Branch mirtazapine 2022-0 Yes [id number] 45mg Take 1 Univers 45 mg 2-23 tablet by ity of tablet 00:00: mouth at [place] [address] bedtime. Medical Branch mirtazapine 2022-0 Yes [id number] 45mg Take 1 Univers 45 mg 2-23 tablet by ity of tablet 00:00: mouth at [place] [address] bedtime. Medical Branch mirtazapine 2022-0 Yes [id number] 45mg Take 1 Univers 45 mg 2-23 tablet by ity of tablet 00:00: mouth at [place] [address] bedtime. Medical Branch mirtazapine 2022-0 Yes [id number] 45mg Take 1 Univers 45 mg 2-23 tablet by ity of tablet 00:00: mouth at [place] [address] bedtime. Medical Branch mirtazapine 2022-0 Yes [id number] 45mg Take 1 Univers 45 mg 2-23 tablet by ity of tablet 00:00: mouth at [place] [address] bedtime. Medical Branch mirtazapine 2022-0 Yes [id number] 45mg Take 1 Univers 45 mg 2-23 tablet by ity of tablet 00:00: mouth at [place] [address] bedtime. Medical Branch mirtazapine 2022-0 Yes [id number] 45mg Take 1 Univers 45 mg 2-23 tablet by ity of tablet 00:00: mouth at [place] [address] bedtime. Medical Branch mirtazapine 2022-0 Yes [id number] 45mg Take 1 Univers 45 mg 2-23 tablet by ity of tablet 00:00: mouth at [place] [address] bedtime. Medical Branch mirtazapine 2022-0 Yes [id number] 45mg Take 1 Univers 45 mg 2-23 tablet by ity of tablet 00:00: mouth at [place] [address] bedtime. Medical Branch mirtazapine 2022-0 2023- No [id number] 45mg Take 1 Univers 45 mg 2-23 04-25 tablet by ity of tablet 00:00: 00:00 mouth at [place] 00 :00 bedtime. Medical Branch mirtazapine 2021- Yes [id number] 30mg Take 1 Univers 30 mg 2-21 tablet by ity of tablet 00:00: mouth at [place] [address] bedtime. Medical Branch mirtazapine 2021- Yes [id number] 30mg Take 1 Univers 30 mg 2-21 tablet by ity of tablet 00:00: mouth at [place] [address] bedtime. Medical Branch mirtazapine 2021- Yes [id number] 30mg Take 1 Univers 30 mg 2-21 tablet by ity of tablet 00:00: mouth at [place] [address] bedtime. Medical Branch mirtazapine 2021- Yes [id number] 30mg Take 1 Univers 30 mg 2-21 tablet by ity of tablet 00:00: mouth at [place] [address] bedtime. Medical Branch mirtazapine 2021- Yes [id number] 30mg Take 1 Univers 30 mg 2-21 tablet by ity of tablet 00:00: mouth at [place] [address] bedtime. Medical Branch mirtazapine 2021- Yes [id number] 30mg Take 1 Univers 30 mg 2-21 tablet by ity of tablet 00:00: mouth at [place] [address] bedtime. Medical Branch mirtazapine 2021- Yes [id number] 30mg Take 1 Univers 30 mg 2-21 tablet by ity of tablet 00:00: mouth at [place] [address] bedtime. Medical Branch mirtazapine 2021- Yes [id number] 30mg Take 1 Univers 30 mg 2-21 tablet by ity of tablet 00:00: mouth at [place] [address] bedtime. Medical Branch mirtazapine 2021- Yes [id number] 30mg Take 1 Univers 30 mg 2-21 tablet by ity of tablet 00:00: mouth at [place] [address] bedtime. Medical Branch mirtazapine 2021-2022- No [id number] 30mg Take 1 Univers 30 mg 2-21 02-23 tablet by ity of tablet 00:00: 00:00 mouth at [place] 00 :[address] [facility] Branch mirtazapine 2021-2022- No [id number] 30mg Take 1 Univers 30 mg 2-21 [...] ity o f 00:00: mouth in [place] the Medical morning Branch and 1 tablet [...] ity o f 00:00: mouth in [place] the Medical morning Branch and 1 tablet at noon and 1 tablet in the evening. traMADoL 50 2021-02 Yes 50mg Take 1 Univ ers mg tablet 2-08 tablet by ity o f 00:00: mouth in [place] the Medical morning Branch and 1 tablet at noon and 1 tablet in the evening. traMADoL 50 2021- Yes 50mg Take 1 Univ ers mg tablet 2-08 tablet by ity o f 00:00: mouth in [place] [address] the Medical morning Branch and 1 tablet [...] by ity o f 00:00: mouth in [place] [address] the Medical morning Branch and 1 tablet at noon and 1 tablet in the evening. traMADoL 50 2021-02 Yes 50mg Take 1 Univ ers mg tablet 2-08 tablet by ity o f 00:00: mouth in [place] [address] the Medical morning Branch and 1 tablet at noon and 1 tablet in the evening. traMADoL 50 2021-02 Yes 50mg Take 1 Univ ers mg tablet 2-08 tablet by ity o f 00:00: mouth in [place] [address] the Medical morning Branch and 1 tablet at noon and 1 tablet in the evening. traMADoL 50 2021-02 Yes 50mg Take 1 Univ ers mg tablet 2-08 tablet by ity o f 00:00: mouth in [place] the Medical morning Branch and 1 tablet [...] by mouth ity of 00:00: in the [place] [address] morning Medical and 50 mg Branch at [...] tablet in the evening. mirtazapine 2021-02 Yes [id number] 15mg Take 1 Univers 15 mg 1-21 tablet by ity of tablet 00:00: mouth at [place] [address] bedtime. Medical Branch mirtazapine 2021-02 Yes [id number] 15mg Take 1 Univers 15 mg 1-21 tablet by ity of tablet 00:00: mouth at [place] [address] [facility] Branch mirtazapine 2021-02 Yes [id number] 15mg Take 1 Univers 15 mg 1-21 tablet by ity of tablet 00:00: mouth at [place] [address] [facility] Branch mirtazapine 2021-02- No [id number] 15mg Take 1 Univers 15 mg 1-21 12-21 tablet by ity of tablet 00:00: 00:00 mouth at [place] 00 :[address] [facility] Branch mirtazapine 2021-02- No [id number] 15mg Take 1 Univers 15 mg 1-21 12-21 tablet by ity of tablet 00:00: 00:00 mouth at [place] 00 :00 bedtime. Medical Branch vortioxetin 2021-02 Yes [id number] 5mg Take 1 Univers e 0-20 tablet by ity of (TRINTELLIX 00:00: mouth in [place] 5 mg Tab 00 the Medical morning. Branch vortioxetin 2021-02 Yes [id number] 5mg Take 1 Univers e 0-20 tablet by ity of (TRINTELLIX 00:00: mouth in [place] 5 mg Tab 00 the Medical morning. Branch vortioxetin 2021-02 Yes [id number] 5mg Take 1 Univers e 0-20 tablet by ity of (TRINTELLIX 00:00: mouth in [place] 5 mg Tab 00 the Medical morning. Branch vortioxetin 2021-02 Yes [id number] 5mg Take 1 Univers e 0-20 tablet by ity of (TRINTELLIX 00:00: mouth in [place] 5 mg Tab 00 the Medical morning. Branch vortioxetin 2021-02 Yes [id number] 5mg Take 1 Univers e 0-20 tablet by ity of (TRINTELLIX 00:00: mouth in [place] 5 mg Tab 00 the Medical morning. Branch vortioxetin 2021-02 Yes [id number] 5mg Take 1 Univers e 0-20 tablet by ity of (TRINTELLIX 00:00: mouth in [place] 5 mg Tab 00 the Medical morning. Branch vortioxetin 2021-02- No [id number] 5mg Take 1 Univers e 0-20 11-21 tablet by ity of (TRINTELLIX 00:00: 00:00 mouth in [place] ) 5 mg Tab 00 :00 the Medical morning. Branch vortioxetin 2021-02- No [id number] 5mg Take 1 Univers e 0-20 11-21 tablet by ity of (TRINTELLIX 00:00: 00:00 mouth in [place] ) 5 mg Tab 00 :00 the Medical morning. Branch DULoxetine Yes [id number] 20mg Take 1 Univers 20 mg 9-20 capsule by ity of capsule 00:00: mouth in [place] 00 the Medical morning. Branch DULoxetine 2-0 Yes [id number] 20mg Take 1 Univers 20 mg 9-20 capsule by ity of capsule 00:00: mouth in [place] 00 the Medical morning. Branch DULoxetine 2-0 Yes [id number] 20mg Take 1 Univers 20 mg 9-20 capsule by ity of capsule 00:00: mouth in [place] 00 the Medical morning. Branch DULoxetine 2-0 Yes [id number] 20mg Take 1 Univers 20 mg 9-20 capsule by ity of capsule 00:00: mouth in [place] 00 the Medical morning. Branch DULoxetine 2021-0 Yes [id number] 20mg Take 1 Univers 20 mg 9-20 capsule by ity of capsule 00:00: mouth in [place] 00 the Medical morning. Branch DULoxetine 2021-0 2- No [id number] 20mg Take 1 Univers 20 mg 9-20 10-20 capsule by ity of capsule 00:00: 00:00 mouth in [place] 00 :00 the Medical morning. Branch DULoxetine 2021-0 2- No [id number] 20mg Take 1 Univers 20 mg 9-20 10-20 capsule by ity of capsule 00:00: 00:00 mouth in [place] 00 :00 the Medical morning. Branch gabapentin 2021-0 Yes [id number] 300mg Take 1 Univers 300 mg 8-23 capsule by ity of capsule 00:00: mouth at [place] [address] bedtime. Medical Branch gabapentin 2-0 Yes [id number] 300mg Take 1 Univers 300 mg 8-23 capsule by ity of capsule 00:00: mouth at [place] [address] bedtime. Medical Branch gabapentin 2022-0 Yes [id number] 300mg Take 1 Univers 300 mg 8-23 capsule by ity of capsule 00:00: mouth at [place] [address] bedtime. Medical Branch gabapentin 2-0 2022- No [id number] 300mg Take 1 Univers 300 mg 8-23 09-20 capsule by ity of capsule 00:00: 00:00 mouth at [place] 00 :00 bedtime. Medical Branch gabapentin 2022-0 2022- No [id number] 300mg Take 1 Univers 300 mg 8-23 [...] Saline 2015-0 No Notes: Memoria Flush 0.9% 6 (Same as: l 18:36: BD [place] 00 Posiflush) Saline No Notes: Memoria Flush 0.9% 6-09 (Same as: l 18:36: BD [place] 00 Posiflush) Saline No Notes: Memoria Flush 0.9% 6-09 (Same as: l 18:36: BD [place] 00 Posiflush) Saline No Notes: Memoria Flush 0.9% 6-09 (Same as: l 18:36: BD [place] 00 Posiflush) Saline No Notes: Memoria Flush 0.9% 6-09 (Same as: l 18:36: BD [place] 00 Posiflush) Saline No Notes: Memoria Flush 0.9% 6-09 (Same as: l 18:36: BD [place] 00 Posiflush) Saline No Notes: Memoria Flush 0.9% 6-09 (Same as: l 18:36: BD [place] 00 Posiflush) Saline No Notes: Memoria Flush 0.9% 6-09 (Same as: l 18:36: BD [place] 00 Posiflush) Saline No Notes: Memoria Flush 0.9% 6-09 (Same as: l 18:36: BD [place] 00 Posiflush) Saline No Notes: Memoria Flush 0.9% 6-09 (Same as: l 18:36: BD [place] 00 Posiflush) Saline No Notes: Memoria Flush 0.9% 6-09 (Same as: l 18:36: BD [place] 00 Posiflush) Saline No Notes: Memoria Flush 0.9% 6-09 (Same as: l 18:36: BD [place] 00 Posiflush) Saline No Notes: Memoria Flush 0.9% 6-09 (Same as: l 18:36: BD [place] 00 Posiflush) Saline No Notes: Memoria Flush 0.9% 6-09 (Same as: l 18:36: BD [place] 00 Posiflush) Saline No Notes: Memoria Flush 0.9% 6-09 (Same as: l 18:36: BD [place] 00 Posiflush) Saline No Notes: Memoria Flush 0.9% 6-09 (Same as: l 18:36: BD Redfield 00 Posiflush) Saline No Notes: Memoria Flush 0.9% 6-09 (Same as: l 18:36: BD Titi 00 Posiflush) Saline No Notes: Memoria Flush 0.9% 6-09 (Same as: l 18:36: BD Titi 00 Posiflush) Saline No Notes: Memoria Flush 0.9% 6-09 (Same as: l 18:36: BD Redfield 00 Posiflush) Saline No Notes: Memoria Flush 0.9% 6-09 (Same as: l 18:36: BD Redfield 00 Posiflush) Saline No Notes: Memoria Flush 0.9% 6-09 (Same as: l 18:36: BD Redfield 00 Posiflush) Saline No Notes: Memoria Flush 0.9% 6-09 (Same as: l 18:36: BD Redfield 00 Posiflush) Saline No Notes: Memoria Flush 0.9% 6-09 (Same as: l 18:36: BD Redfield 00 Posiflush) Saline No Notes: Memoria Flush 0.9% 6-09 (Same as: l 18:36: BD Redfield 00 Posiflush) Saline No Notes: Memoria Flush [...] 0.9% 6-09 (Same as: l 18:36: BD Redfield 00 Posiflush) Saline No Notes: Memoria Flush 0.9% 6-09 (Same as: l 18:36: BD Titi 00 Posiflush) Saline No Notes: Memoria Flush 0.9% 6-09 (Same as: l 18:36: BD Redfield 00 Posiflush) Saline No Notes: Memoria Flush 0.9% 6-09 (Same as: l 18:36: BD Redfield 00 Posiflush) Saline No Notes: Memoria Flush 0.9% 6-09 (Same as: l 18:36: BD Titi 00 Posiflush) Saline No Notes: Memoria Flush 0.9% 6-09 (Same as: l 18:36: BD Titi 00 Posiflush) Vital Signs Vital Name Observation Time Observation Value Comments Source Systolic blood 2022-07-16 14:11:00 145 mm[Hg] [facility] Diastolic blood 2022-07-16 14:11:00 73 mm[Hg] [facility] Heart rate 2022-07-16 14:11:00 62 /min [facility] Body temperature 2022-07-16 14:11:00 36.33 [facility] 2022-07-16 14:11:00 20 /min [facility] Oxygen saturation in 2022-07-16 14:11:00 100 /min [facility] Arterial blood by [facility] Pulse oximetry Branch WEIGHT 2022-07-12 06:00:00 86 kg WEIGHT 2022-07-12 06:00:00 86 kg Systolic blood 2022-07-11 15:10:00 117 mm[Hg] [facility] Diastolic blood 2022-07-11 15:10:00 68 mm[Hg] Unive rsity of [facility] Heart rate 2022-07-11 15:10:00 74 /min [facility] Body temperature 2022-07-11 15:10:00 36.94 Nita Univ [address]ity [facility] [place] [place] Respiratory rate 2022-07-11 15:10:00 18 /min Univ ersity [facility] [place] [place] Body weight 2022-07-11 15:10:00 90.719 kg [facility] BMI 2022-07-11 15:10:00 32.28 kg/m2 [facility] Oxygen saturation in 2022-07-11 15:10:00 98 /min [facility] of Arterial blood by [facility] Pulse oximetry Branch Systolic blood 2022-07-11 11:20:00 133 mm[Hg] [facility] Diastolic blood 2022-07-11 11:20:00 69 mm[Hg] [facility] Heart rate 2022-07-11 11:20:00 78 /min [facility] Respiratory rate 2022-07-11 11:20:00 18 /min [facility] Oxygen saturation in 2022-07-11 11:20:00 99 /min [facility] of Arterial blood by [facility] Pulse oximetry Branch Body temperature 2022-07-11 09:24:00 36.83 Nita [facility] Body weight 2022-07-11 09:24:00 90.719 kg [facility] BMI 2022-07-11 09:24:00 32.28 kg/m2 [facility] Systolic blood 2022-07-08 18:24:00 130 mm[Hg] [facility] Diastolic blood 2022-07-08 18:24:00 57 mm[Hg] [facility] Heart rate 2022-07-08 18:24:00 87 /min [facility] Body temperature 2022-07-08 18:24:00 36.72 Nita [facility] Respiratory rate 2022-07-08 18:24:00 18 /min [facility] Body weight 2022-07-08 18:24:00 90.719 kg [facility] BMI 2022-07-08 18:24:00 32.28 kg/m2 [facility] Oxygen saturation in 2022-07-08 18:24:00 97 /min [facility] Arterial blood by [facility] Pulse oximetry Branch Systolic blood 2022-07-05 14:00:00 155 mm[Hg] [facility] Diastolic blood 2022-07-05 14:00:00 80 mm[Hg] [facility] Heart rate 2022-07-05 14:00:00 76 /min [facility] Body temperature 2022-07-05 14:00:00 37.56 Nita [facility] Respiratory rate 2022-07-05 14:00:00 16 /min [facility] Oxygen saturation in 2022-07-05 14:00:00 98 /min [facility] Arterial blood by [place] [facility] Pulse oximetry Branch Body weight 2022-07-05 10:49:00 90.719 kg [facility] BMI 2022-07-05 10:49:00 32.28 kg/m2 [facility] HEIGHT 2022-06-21 11:16:00 167.6 cm WEIGHT 2022-06-21 11:16:00 87.181 kg HEIGHT 2022-06-21 11:16:00 167.6 cm WEIGHT 2022-06-21 11:16:00 87.181 kg Systolic blood 2022-06-16 16:05:00 112 mm[Hg] [facility] Diastolic blood 2022-06-16 16:05:00 72 [...] /min [facility] by [place] [facility] P[facility] oxim[facility] Systolic blood 2022-06-07 18:25:00 140 mm[Hg] [facility] Diastolic blood 2022-06-07 18:25:00 74 mm[Hg] [facility] Heart rate 2022-06-07 18:25:00 70 /min [facility] Body temperature 2022-06-07 18:25:00 36.44 Nita [facility] Respiratory rate 2022-06-07 18:25:00 20 /min [facility] Oxygen saturation in 2022-06-07 18:25:00 100 /min [facility] Arterial blood by [place] [facility] Pulse oximetry Branch Body weight 2022-05-27 [...] 2022-06-03 10:48:00 18 /min [facility] Oxygen saturation in 2022-06-03 10:48:00 97 /min [facility]ial blood by [place] [facility] Pulse oximetry Branch Body weight 2022-05-27 [...] 2022-05-31 01:00:00 14 /min [facility] Oxygen saturation in 2022-05-31 01:00:00 96 /min [facility] Arterial blood by [facility] Pulse oximetry Branch Body weight [...] 2022-05-29 15:15:00 18 /min [facility] Oxygen saturation in 2022-05-29 15:15:00 100 /min [facility] Arterial blood by [facility] Pulse oximetry Branch Body weight [...] /min [facility] Arter[facility] blood by [place] [facility] Pulse oximetry Branch Systolic blood 2022-05-23 [...] 96 /min [facility] Arterial blood by [facility] Pulse oximetry Branch Body [...] 2022-04-13 15:41:00 88 mm[Hg] [facility]ity [facility] [place] Heart rate 2022-04-13 15:41:00 88 /min [facility] Respiratory rate 2022-04-13 15:41:00 18 /min [facility] Body height 2022-04-13 15:41:00 167.6 cm [facility] Body weight 2022-04-13 15:41:00 86.047 kg [facility] BMI 2022-04-13 15:41:00 30.62 kg/m2 [facility] Oxygen saturation in 2022-04-13 15:41:00 96 /min [facility] Arterial blood by [facility] Pulse oximetry Branch Systolic blood 2022-04-07 16:41:00 162 mm[Hg] [facility] Diastolic blood 2022-04-07 16:41:00 89 mm[Hg] [facility] Heart rate 2022-04-07 16:41:00 81 /min [facility] Body weight 2022-04-07 16:39:00 86.183 kg [facility] BMI 2022-04-07 16:39:00 30.67 kg/m2 [facility] Systolic blood 2022-02-02 15:24:00 133 mm[Hg] [facility] Diastolic blood 2022-02-02 15:24:00 82 mm[Hg] [facility] Heart rate 2022-02-02 15:24:00 82 /min [facility] Body height 2022-02-02 15:24:00 167.6 cm [facility] Body weight 2022-02-02 15:24:00 83.008 kg [facility] BMI 2022-02-02 15:24:00 29.54 kg/m2 [facility] Systolic blood 2022-01-03 15:07:00 129 mm[Hg] [facility] Diastolic blood 2022-01-03 15:07:00 82 mm[Hg] [facility] Heart rate 2022-01-03 15:07:00 76 /min [facility] Body temperature 2022-01-03 15:07:00 36.83 Nita [facility] Body height 2022-01-03 15:07:00 167.6 [...] 2021-12-08 15:18:00 29.65 kg/m2 [facility] Oxygen saturation in 2021-12-08 15:18:00 100 /min [facility] Arterial blood by [facility] Pulse oximetry Branch Systolic blood 2021-12-02 16:05:00 130 mm[Hg] [facility] Diastolic blood 2021-12-02 16:05:00 78 mm[Hg] [facility] Heart rate 2021-12-02 16:05:00 61 /min [...] 2021-11-02 14:34:00 84.823 kg [facility] BMI 2021-11-02 14:34:00 30.18 kg/m2 [facility] Systolic blood 2021-10-05 19:18:00 152 mm[Hg] [facility] Diastolic blood 2021-10-05 19:18:00 87 mm[Hg] [facility] Heart rate 2021-10-05 19:18:00 83 /min [facility] Body temperature 2021-10-05 19:18:00 37.33 Nita [facility] Body height 2021-10-05 19:18:00 167.6 cm [facility] Body weight 2021-10-05 19:18:00 86.637 kg [facility] BMI 2021-10-05 19:18:00 30.83 kg/m2 [facility] Oxygen saturation in 2021-10-05 19:18:00 99 /min [facility] Arterial blood by [facility] Pulse oximetry Branch Heart rate 2022-06-23 15:28:08 91 /min [facility] Respiratory rate 2022-06-23 15:28:08 18 /min [facility] Oxygen saturation in 2022-06-23 15:28:08 100 /min [facility] Arterial blood by Medical Ce nter Pulse oximetry Body temperature 2022-06-23 15:28:04 36.89 Nita [facility] Systolic blood 2022-06-23 15:27:00 144 mm[Hg] [facility] Diastolic blood 2022-06-23 15:27:00 79 mm[Hg] [facility] Body height 2022-06-21 11:16:00 167.6 cm [facility] Body weight 2022-06-21 11:16:00 87.181 kg [facility] BMI 2022-06-21 11:16:00 31.02 kg/m2 [facility] Initial DRG Weight: 2020-02-15 05:04:52 [...] Temperature 2020-02-15 05:04:52 36.6\\S\\97.9 Weight 2020-02-15 05:04:52 49836\\S\\2627.91 Weight Measurement 2020-02-15 05:04:52 Built in Bedscale [...] Temperature 2020-02-10 08:28:02 36.6\\S\\97.9 Weight 2020-02-10 08:28:02 14604\\S\\2627.91 Weight Measurement 2020-02-10 08:28:02 Built in Bedscale [...] Temperature 2020-02-06 14:55:36 36.6\\S\\97.9 Weight 2020-02-06 14:55:36 78568\\S\\2627.91 Weight Measurement 2020-02-06 14:55:36 Built in Bedscale [...] Temperature 2020-02-06 12:25:52 36.7\\S\\98.1 Weight 2020-02-06 12:25:52 49351\\S\\2627.91 Weight Measurement 2020-02-06 12:25:52 Built in Bedscale [...] Temperature 2020-02-04 14:40:56 36.3\\S\\97.3 Weight 2020-02-04 14:40:56 38974\\S\\2627.91 Weight Measurement 2020-02-04 14:40:56 Built in Bedscale [...] Temperature 2020-02-04 12:53:01 36.3\\S\\97.3 Weight 2020-02-04 12:53:01 41056\\S\\2627.91 Weight Measurement 2020-02-04 12:53:01 Built in Bedscale [...] Temperature 2020-02-04 10:07:56 36.7\\S\\98.1 Weight 2020-02-04 10:07:56 26457\\S\\2627.91 Weight Measurement 2020-02-04 10:07:56 Built in Bedscale [...] Temperature 2020-02-04 06:31:28 36.7\\S\\98.1 Weight 2020-02-04 06:31:28 55920\\S\\2627.91 Weight Measurement 2020-02-04 06:31:28 Built in Bedscale [...] Temperature 2020-02-03 15:40:21 37.1\\S\\98.8 Weight 2020-02-03 15:40:21 62966\\S\\2627.91 Weight Measurement 2020-02-03 15:40:21 Built in Bedscale [...] Temperature 2020-02-03 13:59:33 37.1\\S\\98.8 Weight 2020-02-03 13:59:33 95931\\S\\2627.91 Weight Measurement 2020-02-03 13:59:33 Built in Bedscale [...] Temperature 2020-02-03 13:57:29 37.1\\S\\98.8 Weight 2020-02-03 13:57:29 74090\\S\\2627.91 Weight Measurement 2020-02-03 13:57:29 Built in [employer] WEIGHT 2020-02-03 05:44:00 74.5 kg HEIGHT 2020-02-03 05:00:00 167.64 cm Respitory Rate 2014-07-22 20:45:00 Memori al Titi Heart Rate 2014-07-22 20:45:00 [facility] Systolic (mm Hg) 2014-07-22 20:45:00 Jack rial [place] Diastolic (mm Hg) 2014-07-22 20:45:00 Mem orial [place] Height 2014-07-22 17:53:00 167.64 cm [facility] Weight 2014-07-22 17:53:00 [facility] BMI Calculated 2014-07-22 17:53:00 Memori al Titi Respitory Rate 2014-07-22 17:53:00 Memori al Titi Temperature Oral (F) 2014-07-22 17:53:00 97.9 F [facility] Heart Rate 2014-07-22 17:53:00 [facility] Systolic (mm Hg) 2014-07-22 17:53:00 Jack rial [place] Diastolic (mm Hg) 2014-07-22 17:53:00 Mem orial [place] Procedures Procedure Date / Time Performing Clinician Source Performed COMP. METABOLIC PANEL 2022-07-11 10:41:00 Ángel Murray [facility] ([id number]) [facility] CBC WITH DIFF 2022-07-11 10:41:00 Ángel [facility] POCT GLUCOSE (AUTOMATED) 2022-07-11 09:26:00 Doctor Unassigned, [facility] Name Medical Branch CONSENT/REFUSAL FOR 2022-07-11 04:57:15 Doctor Unassagnes [facility] DIAGNOSIS AND TREATMENT [place] [facility] [place] CONSENT/REFUSAL FOR 2022-07-08 18:20:06 Doctor Sergo [facility] DIAGNOSIS AND TREATMENT [facility] [place] URINALYSIS 2022-07-05 13:22:00 Hilda Miller [facility] XR TIBIA FIBULA 2 VW 2022-07-05 13:16:57 Hilda Miller [facility] Branch COMP. METABOLIC PANEL 2022-07-05 12:59:00 Hilda Miller [facility] ([id number]) [facility] US LOWER EXTREMITY VEIN 2022-07-05 12:47:00 Hilda Miller [facility] WITH COMPRESSION RIGHT Medical B ranch (ONLY FOR RULE OUT DVT) TROPONIN I 2022-07-05 11:49:00 Hilad Miller [facility] CBC WITH DIFF 2022-07-05 11:49:00 Hilda Miller [facility] N-TERMINAL PRO-BNP 2022-07-05 11:49:00 Hilda Miller [facility] US RENAL COMPLETE 2022-06-23 16:47:00 Laureen Moore [facility] CBC W/PLT COUNT & AUTO 2022-06-23 05:27:00 Kendra [facility] DIFFERENTIAL [place] CBC W/PLT COUNT & AUTO 2022-06-23 05:27:00 Kendra [facility] DIFFERENTIAL [place] US ABDOMEN LIMITED 2022-06-22 16:17:00 Olga Abraham [facility] BASIC METABOLIC PANEL 2022-06-22 03:48:00 Olga Abraham [facility] MAGNESIUM 2022-06-22 03:48:00 Olga Abraham [facility] HEPATIC FUNCTION PANEL 2022-06-22 03:48:00 Olga Abraham [facility] CBC W/PLT COUNT & AUTO 2022-06-22 03:48:[address] [facility] DIFFERENTIAL Center PROTEIN ELECTROPHORESIS, 2022-06-22 03:48:00 [facility] IRON, TIBC, % SAT. 2022-06-22 03:48:00 [facility] Center VITAMIN B12 2022-06-22 03:48:00 [facility] 2022-06-22 03:48:00 [facility] HE[facility]TIBODY 2022-06-22 03:48:00 Fabienne [facility] LACTATE DEHYDROGENASE 2022-06-22 03:48:00 [facility] Kristy Center HAPTOGLOBIN 2022-06-22 03:48:00 [facility] [place] RETICULOCYTE COUNT 2022-06-22 03:48:[address] [facility] Kristy Center SERUM IMMUNOTYPING 2022-06-22 03:48:00 Fabienne [facility] SEROTONIN RELEASE ASSAY 2022-06-22 03:48:[address] [facility] CBC W/PLT COUNT & AUTO 2022-06-22 03:48:00 [facility] PROTEIN 2022-06-21 16:38:00 [facility] RANDOM Center SARS-COV2/RT-PCR (HS & 2022-06-21 11:14:00 Fabienne [facility] REF LABS) Center COMPREHENSIVE METABOLIC 2022-06-21 11:12:00 [facility] PANEL Center PROTHROMBIN TIME/INR 2022-06-21 11:12:[address] [facility] CBC W/PLT COUNT & AUTO 2022-06-21 11:12:00 [facility] Center CBC W/PLT COUNT & AUTO 2022-06-21 11:12:00 Olga Abraham [facility] DIFFERENTIAL Center INSURANCE CORRESPONDENCE 2022-06-21 05:01:00 Doctor Unassigned, [facility] PHOSPHORUS 2022-06-07 09:16:00 [facility] MAGNESIUM 2022-06-07 09:16:00 [facility] BASIC METABOLIC PANEL 2022-06-07 09:16:00 [facility] (NA, K, CL, CO2, GLUCOSE, Faustino Medica l Branch BUN, CREATININE, CA) PHOSPHORUS 2022-06-05 11:13:00 [facility] 2022-06-05 11:13:00 [facility] [place] BASIC METABOLIC PANEL 2022-06-05 11:13:00 Prajapati [facility] (NA, K, CL, CO2, GLUCOSE, Rod, Juanpablo Medica l Branch BUN, CREATININE, CA) Jose [place] CBC WITH DIFF 2022-06-05 11:13:00 [facility] [place] PHOSPHORUS 2022-06-05 11:13:00 [facility] [place] MAGNESIUM 2022-06-05 11:13:00 Prajapati [facility] Jose [place] BASIC METABOLIC PANEL 2022-06-05 11:13:00 Prajapati [facility] (NA, K, CL, CO2, GLUCOSE, Rod, Juanpablo Medica l Branch BUN, CREATININE, CA) Jose Antonio CBC WITH DIFF 2022-06-05 11:13:00 [facility] [place] CT THORAX W CONTRAST 2022-06-05 01:36:13 Nimmich, Shimon [facility] CT THORAX W CONTRAST 2022-06-05 01:36:[address] [facility] ACTIVATED PARTIAL 2022-06-04 18:00:00 Dannie [facility] ACTIVATED PARTIAL 2022-06-04 18:00:00 Dannie [facility] ACTIVATED PARTIAL 2022-06-04 14:21:[address] [facility] ACTIVATED PARTIAL 2022-06-04 14:21:[address] [facility] XR KUB 2022-06-04 09:32:00 Dannie [facility] XR KUB 2022-06-04 09:32:00 Dannie [facility] XR KUB 2022-06-04 06:45:00 Dannie [facility] XR KUB 2022-06-04 06:45:00 Dannie [facility] HIT - AB 2022-06-04 06:14:00 Dannie [facility] EXTRA SST HOLD FOR NDUP 2022-06-04 06:14:00 Dannie [facility] HIT - AB 2022-06-04 06:14:00 Dannie [facility] EXTRA SST HOLD FOR NDUP 2022-06-04 06:14:00 Dannie [facility] XR CHEST 1 VW 2022-06-04 05:23:00 Dannie [facility] XR CHEST 1 VW 2022-06-04 05:23:00 Dannie [facility] TROPONIN I 2022-06-04 04:51:00 Dannie [facility] HEPATIC FUNCTION PANEL 2022-06-04 04:51:00 Armando Pandey [facility] ([id number]) (ALB,T.PRO,BILI Medical Branch T,BU/BC,ALT,AST,ALK PHOS) BASIC METABOLIC PANEL 2022-06-04 04:51:00 Armando Pandey [facility] (NA, K, CL, CO2, GLUCOSE, Medica l Branch BUN, CREATININE, CA) CBC WITH DIFF 2022-06-04 04:51:00 Armando Pandey [facility] ACTIVATED PARTIAL 2022-06-04 04:51:00 Andreea [facility] TROPONIN I 2022-06-04 04:51:00 Armando Pandey [facility] HEPATIC FUNCTION PANEL 2022-06-04 04:51:00 Armando Pandey [facility] ([id number]) (ALB,T.PRO,BILI Medical Branch T,BU/BC,ALT,AST,ALK PHOS) BASIC METABOLIC PANEL 2022-06-04 04:51:00 Armando Pandey [facility] (NA, K, CL, CO2, GLUCOSE, Medica l Branch BUN, CREATININE, CA) CBC WITH DIFF 2022-06-04 04:51:00 Armando Pandey [facility] ACTIVATED PARTIAL 2022-06-04 04:51:00 Andreea [facility] HB ECG ROUTINE & RHYTHM 2022-06-04 04:43:15 Dannie Armando [facility] HB ECG ROUTINE & RHYTHM 2022-06-04 04:43:15 Dannie Armando [facility] ACTIVATED PARTIAL 2022-06-03 20:52:[address] [facility] ACTIVATED PARTIAL 2022-06-03 20:52:[address] [facility] FL TIME OR 2022-06-03 17:21:00 [facility] (NON[facility]RE[facility] [place] [facility] 2022-06-03 17:21:00 [facility] Rod [facility] Jose Antonio ABG+COOX+NA+K+GLU+CA2+ 2022-06-03 16:52:00 Allan Lynch [facility] ABG+COOX+NA+K+GLU+CA2+ 2022-06-03 16:52:00 Allan Lynch [facility] SURGICAL PATHOLOGY EXAM 2022-06-03 15:42:00 Lawrence Peterson [facility] ABG+COOX+NA+K+GLU+CA2+ 2022-06-03 15:36:00 Allan Lynch [facility] ABG+COOX+NA+K+GLU+CA2+ 2022-06-03 15:36:00 Allan Lynch [facility] HB ABO GROUPING 2022-06-03 13:05:00 Vishnu Zapien [facility] HB ABO GROUPING 2022-06-03 13:05:00 Vishnu Zapien [facility] INFERIOR VENA CAVA FILTER 2022-06-03 12:00:00 Lawrence Peterson [facility] VENOUS THROMBECTOMY 2022-06-03 12:00:00 Lawrence Peterson [facility] ANGIOPLASTY 2022-06-03 12:00:00 Lawrence Peterson [facility] VASCULAR STENTING 2022-06-03 12:00:00 Lawrence Peterson [facility] INFERIOR VENA CAVA FILTER 2022-06-03 12:00:00 Lawrence Peterson [facility] VENOUS THROMBECTOMY 2022-06-03 12:00:00 Lawrence Peterson [facility] ANGIOPLASTY 2022-06-03 12:00:00 Lawrence Peterson [facility] VASCULAR STENTING 2022-06-03 12:00:00 Lawernce Peterson [facility] PHOSPHORUS 2022-06-03 10:34:00 Prajapati [facility] [place] Antonio MAGNESIUM 2022-06-03 10:34:00 Prajapati [facility] [place] BASIC METABOLIC PANEL 2022-06-03 10:34:00 Prajapatiritu [facility] (NA, K, CL, CO2, GLUCOSE, Rod, Juanpablo Medica l Branch BUN, CREATININE, CA) Jose Antonio CBC WITH DIFF 2022-06-03 10:34:00 [facility] [place] ACTIVATED PARTIAL 2022-06-03 10:34:00 [facility] 2022-06-03 10:34:00 Prajapati [facility] [place] MAGNESIUM 2022-06-03 10:34:00 Prajapati [facility] [place] BASIC METABOLIC PANEL 2022-06-03 10:34:00 Prajapati [facility] (NA, K, CL, CO2, GLUCOSE, Rod, Juanpablo Medica l [facility] BUN, CREATININE, CA) Jose Antonio CBC WITH DIFF 2022-06-03 10:34:00 [facility] [place] ACTIVATED PARTIAL 2022-06-03 10:34:00 [facility] 2022-06-02 22:26[facility]02 22:26:00 [facility] ACTIVATED PARTIAL 2022-06-02 15:46:00 Andreea [facility] ACTIVATED PARTIAL 2022-06-02 15:46:00 Andreea [facility] PHOSPHORUS 2022-06-02 10:27:00 Prajapati [facility] Jose Antonio MAGNESIUM 2022-06-02 10:27:00 [facility] Jose Atnonio BASIC METABOLIC PANEL 2022-06-02 10:27:00 Prajapati [facility] (NA, K, CL, CO2, GLUCOSE, Rod, Juanpablo Medica l Branch BUN, CREATININE, CA) Jose Antonio CBC WITH DIFF 2022-06-02 10:27:[address] [facility] [place] PHOSPHORUS 2022-06-02 10:27:00 Prajapati [facility] [place] Antonio MAGNESIUM 2022-06-02 10:27:00 Prajapati [facility] Jose Antonio BASIC METABOLIC PANEL 2022-06-02 10:27:00 Prajapati [facility] (NA, K, CL, CO2, GLUCOSE, Rod, Juanpablo Medica l Branch BUN, CREATININE, CA) Jose Antonio CBC WITH DIFF 2022-06-02 10:27:00 Prajapati [facility] Jose Antonio PHOSPHORUS 2022-06-01 10:05:[facility] MAGNES[facility]UM 2022-06-01 10:05:00 Prajapati [facility] Jose Antonio BASIC METABOLIC PANEL 2022-06-01 10:05:00 Prajapati [facility] (NA, K, CL, CO2, GLUCOSE, Rod, [place] [facility] BUN, CREATININE, CA) Jose Antonio CBC WITH DIFF 2022-06-01 10:05:00 [facility]US 2022-06-01 10:05:00 Prajapati [facility] Jose Antonio MAGNESIUM 2022-06-01 10:05:00 Prajapati [facility] Jose Antonio BASIC METABOLIC PANEL 2022-06-01 10:05:00 Prajapati [facility] (NA, K, CL, CO2, GLUCOSE, Rod, [place] [facility] BUN, CREATININE, CA) Jose Antonio CBC WITH DIFF 2022-06-01 10:05:00 Prajapati [facility] Jose Antonio PHOSPHORUS 2022-05-31 11:01:00 [facility]UM 2022-05-31 11:01:00 [facility] BASIC METABOLIC PANEL 2022-05-31 [facility]:01[facility] ([facility], K, CL, CO2, GLUCOSE, Rod, [place] Medica l Branch BUN, CREATININE, CA) Jose Antonio CBC WITH DIFF 2022-05-31 11:01:00 [facility] Antonio PROTHROMBIN TIME / INR 2022-05-31 11:01:00 Maurice Gutierrez [facility] ACTIVATED PARTIAL 2022-05-31 11:01:00 Juanpablo [facility] FIBRINOGEN 2022-05-31 11:01:00 Ryley Polo [facility] PHOSPHORUS 2022-05-31 11:01:00 [facility] MAGNESIUM 2022-05-31 11:01:00 [facility] BASIC METABOLIC PANEL 2022-05-31 11:01[facility]00 [facility] (NA, K, CL, CO2, GLUCOSE, Rod, [place] [facility] BUN, CREATININE, CA) Jose Antonio CBC WITH DIFF 2022-05-31 11:01:00 [facility] Jose Antonio PROTHROMBIN TIME / INR 2022-05-31 11:01:00 Juanpablo Salmon [facility] [place] ACTIVATED PARTIAL 2022-05-31 11:01:00 Juanpablo [facility] FIBRINOGEN 2022-05-31 11:01:00 Ryley Polo [facility] PHOSPHORUS 2022-05-31 11:01:00 [facility] MAGNESIUM 2022-05-31 11:01:00 Alo [facility] Jose Antonio BASIC METABOLIC PANEL 2022-05-31 11:01:00 Alo denny [facility] (NA, K, CL, CO2, GLUCOSE, Rod, Juanpablo [facility] BUN, CREATININE, CA) Jose Antonio CBC WITH DIFF 2022-05-31 11:01:00 Alo [facility] Jose Antonio PROTHROMBIN TIME / INR 2022-05-31 11:01:00 Juanpablo Salmon [facility] [place] ACTIVATED PARTIAL 2022-05-31 11:01:00 Juanpablo Salmon [facility] FIBRINOGEN 2022-05-31 11:01:00 [facility] FL TIME OR 2022-05-31 04:56:00 [facility] (NON-REPORTABLE) [facility] FL TIME OR 2022-05-31 04:56:00 [facility] (NON-REPORTABLE) [facility] FL TIME OR 2022-05-31 04:56:00 [facility] (NON-REPORTABLE) [facility] FIBRINOGEN 2022-05-31 01:26:00 [facility] FIBRINOGEN 2022-05-31 01:26:00 [facility] FIBRINOGEN 2022-05-31 01:26:00 [facility] VENOGRAM 2022-05-31 01:17:00 [facility] VENOGRAM 2022-05-31 01:17:00 [facility] FIBRINOGEN 2022-05-30 21:47:00 [facility] FIBRINOGEN 2022-05-30 21:47:00 [facility] FIBRINOGEN 2022-05-30 21:47:00 [facility] FIBRINOGEN 2022-05-30 18:14:00 [facility] FIBRINOGEN 2022-05-30 18:14:00 [facility] FIBRINOGEN 2022-05-30 18:14:00 [facility] FIBRINOGEN 2022-05-30 18:14:00 [facility] FIBRINOGEN 2022-05-30 15:21:00 [facility] FIBRINOGEN 2022-05-30 15:21:00 [facility] FIBRINOGEN 2022-05-30 15:21:00 [facility] FIBRINOGEN 2022-05-30 15:21:00 [facility] FIBRINOGEN 2022-05-30 13:12:00 [facility] FIBRINOGEN 2022-05-30 13:12:00 [facility] FIBRINOGEN 2022-05-30 13:12:00 [facility] FIBRINOGEN 2022-05-30 13:12:00 [facility] FIBRINOGEN 2022-05-30 11:13:00 [facility] FIBRINOGEN 2022-05-30 11:13:00 [facility] FIBRINOGEN 2022-05-30 11:13:00 [facility] FIBRINOGEN 2022-05-30 11:13:00 [facility] PHOSPHORUS 2022-05-30 09:27:00 [facility] MAGNESIUM 2022-05-30 09:27:00 [facility] BASIC METABOLIC PANEL 2022-05-30 09:27:00 [facility] (NA, K, CL, CO2, GLUCOSE, Medica l Branch BUN, CREATININE, CA) CBC WITH DIFF 2022-05-30 09:27:00 [facility] ACTIVATED PARTIAL 2022-05-30 09:27:[address] [facility] FIBRINOGEN 2022-05-30 09:27:00 [facility] PHOSPHORUS 2022-05-30 09:27:00 [facility] MAGNESIUM 2022-05-30 09:27:00 [facility] BASIC METABOLIC PANEL 2022-05-30 09:27:00 [facility] (NA, K, CL, CO2, GLUCOSE, Medica l Branch BUN, CREATININE, CA) CBC WITH DIFF 2022-05-30 09:27:00 [facility] ACTIVATED PARTIAL 2022-05-30 09:27:[address] [facility] FIBRINOGEN 2022-05-30 09:27:00 [facility] PHOSPHORUS 2022-05-30 09:27:00 [facility] MAGNESIUM 2022-05-30 09:27:00 [facility] BASIC METABOLIC PANEL 2022-05-30 09:27:00 [facility] (NA, K, CL, CO2, GLUCOSE, Medica l Branch BUN, CREATININE, CA) CBC WITH DIFF 2022-05-30 09:27:00 [facility] ACTIVATED PARTIAL 2022-05-30 09:27:[address] [facility] FIBRINOGEN 2022-05-30 09:27:00 [facility] PHOSPHORUS 2022-05-30 09:27:00 [facility] MAGNESIUM 2022-05-30 09:27:00 [facility] BASIC METABOLIC PANEL 2022-05-30 09:27:00 [facility] (NA, K, CL, CO2, GLUCOSE, Medica l Branch BUN, CREATININE, CA) CBC WITH DIFF 2022-05-30 09:27:00 [facility] ACTIVATED PARTIAL 2022-05-30 09:27:[address] [facility] FIBRINOGEN 2022-05-30 09:27:00 [facility] FIBRINOGEN 2022-05-30 06:58:00 [facility] FIBRINOGEN 2022-05-30 06:58:00 [facility] FIBRINOGEN 2022-05-30 06:58:00 [facility] FIBRINOGEN 2022-05-30 06:58:00 [facility] ACTIVATED PARTIAL 2022-05-30 06:13:[address] [facility] ACTIVATED PARTIAL 2022-05-30 06:13:[address] [facility] ACTIVATED PARTIAL 2022-05-30 06:13:[address] [facility] ACTIVATED PARTIAL 2022-05-30 06:13:[address] [facility] FIBRINOGEN 2022-05-30 04:43:00 [facility] FIBRINOGEN 2022-05-30 04:43:00 [facility] FIBRINOGEN 2022-05-30 04:43:00 [facility] FIBRINOGEN 2022-05-30 04:43:00 [facility] FIBRINOGEN 2022-05-29 23:24:00 Chrits [facility] FIBRINOGEN 2022-05-29 23:24:00 [facility] FIBRINOGEN 2022-05-29 23:24:00 [facility] FIBRINOGEN 2022-05-29 23:24:00 [facility] FIBRINOGEN 2022-05-29 21:10:00 [facility] FIBRINOGEN 2022-05-29 21:10:00 [facility] FIBRINOGEN 2022-05-29 21:10:00 [facility] FIBRINOGEN 2022-05-29 21:10:00 [facility] BASIC METABOLIC PANEL 2022-05-29 14:55:00 Armando Pandey [facility] (NA, K, CL, CO2, GLUCOSE, Medica l Branch BUN, CREATININE, CA) CBC WITH DIFF 2022-05-29 14:55:00 [facility] 2022-05-29 14:55:00 [facility] BASIC METABOLIC PANEL 2022-05-29 14:55:00 Dannie Armando [facility] (NA, K, CL, CO2, GLUCOSE, Medica l Branch BUN, CREATININE, CA) CBC WITH DIFF 2022-05-29 14:55:00 [facility] 2022-05-29 14:55:00 [facility] BASIC METABOLIC PANEL 2022-05-29 14:55:00 Armando Pandey [facility] (NA, K, CL, CO2, GLUCOSE, Medica l Branch BUN, CREATININE, CA) CBC WITH DIFF 2022-05-29 14:55:00 [facility] 2022-05-29 14:55:00 [facility] BASIC METABOLIC PANEL 2022-05-29 14:55:00 Armando Pandey [facility] (NA, K, CL, CO2, GLUCOSE, Medica l Branch BUN, CREATININE, CA) CBC WITH DIFF 2022-05-29 14:55:00 [facility] 2022-05-29 14:55:00 [facility] FL TIME OR 2022-05-29 14:03:00 [facility] (NON-REPORTABLE) [facility] FL TIME OR 2022-05-29 14:03:00 [facility] (NON-REPORTABLE) [facility] FL TIME OR 2022-05-29 14:03:00 [facility] (NON-REPORTABLE) [facility] FL TIME OR 2022-05-29 14:03:00 [facility] VENOUS THROMBOLYSIS 2022-05-29 12:05:[address] [facility] VENOUS THROMBOLYSIS 2022-05-29 12:05:[address] [facility] MAGNESIUM 2022-05-29 11:11:00 Reyna [facility] BASIC METABOLIC PANEL 2022-05-29 11:11:00 Amber Orellana [facility] (NA, K, CL, CO2, GLUCOSE, Medica l Branch BUN, CREATININE, CA) CBC WITHOUT DIFF 2022-05-29 11:11:00 Reyna [facility] ACTIVATED PARTIAL 2022-05-29 11:11:00 [facility] 2022-05-29 11:11:00 [facility]OL[facility] PANEL 2022-05-29 11:11:00 Amber Orellana [facility] (NA, K, CL, CO2, GLUCOSE, Medica l Branch BUN, CREATININE, CA) CBC WITHOUT DIFF 2022-05-29 11:11:00 Reyna [facility] ACTIVATED PARTIAL 2022-05-29 11:11:00 Reyna [facility] MAGNESIUM 2022-05-29 11:11:00 Reyna [facility] BASIC METABOLIC PANEL 2022-05-29 11:11:00 Amber Orellana [facility] (NA, K, CL, CO2, GLUCOSE, Medica l Branch BUN, CREATININE, CA) CBC WITHOUT DIFF 2022-05-29 11:11:00 [facility] 2022-05-29 11:11:00 [facility] MAG[facility]UM 2022-05-29 11:11:00 Reyna [facility] BASIC METABOLIC PANEL 2022-05-29 11:11:00 Amber Orellana [facility] (NA, K, CL, CO2, GLUCOSE, Medica l Branch BUN, CREATININE, CA) CBC WITHOUT DIFF 2022-05-29 11:11:00 [facility] 2022-05-29 11:11:00 [facility] AB[facility]H CONFIRMATION (LAB 2022-05-28 23:34:00 Val [facility] ONLY) Medical Branch ABORH CONFIRMATION (LAB 2022-05-28 23:34:00 Val [facility] ONLY) Medical Branch ABORH CONFIRMATION (LAB 2022-05-28 23:34:00 Val [facility] ONLY) Medical Branch ABORH CONFIRMATION (LAB 2022-05-28 23:34:00 Val [facility] ONLY) Medical Branch HB ABO GROUPING 2022-05-28 23:00:00 [facility] HB ABO GROUPING 2022-05-28 23:00:00 [facility] HB ABO GROUPING 2022-05-28 23:00:00 [facility] HB ABO GROUPING 2022-05-28 23:00:00 [facility] ACTIVATED PARTIAL 2022-05-28 22:59:00 [facility]IAL 2022-05-28 22:59:00 [facility] ACT[facility] PARTIAL 2022-05-28 22:59:00 [facility] PARTIAL 2022-05-28 22:59:00 [facility] PROTHROMBIN TIME / INR 2022-05-28 17:23:00 Amber Orellana [facility] ACTIVATED PARTIAL 2022-05-28 17:23:00 [facility] PROT[facility]OMBIN TIME / INR 2022-05-28 17:23:00 Amber Orellana [facility] ACTIVATED PARTIAL 2022-05-28 17:23:00 [facility] PROTHROMBIN TIME / INR 2022-05-28 17:23:00 Amber Orellana [facility] ACTIVATED PARTIAL 2022-05-28 17:23:00 [facility] PROT[facility]OMBIN TIME / INR 2022-05-28 17:23:00 Amber Orellana [facility] ACTIVATED PARTIAL 2022-05-28 17:23:00 [facility] BASIC METABOLIC PANEL 2022-05-28 09:09:00 Romario Friedman [facility] (NA, K, CL, CO2, GLUCOSE, Medica l Branch BUN, CREATININE, CA) CBC WITH DIFF 2022-05-28 09:09:00 Romario Friedman [facility] FACTOR 5 LEIDEN 2022-05-28 09:09:00 Liseth Vitale [place] [facility] FACTOR 2 [id number] MUTATION 2022-05-28 09:09:00 Liseth Vitale [facility] F5 LEIDEN AND F2 [id number] 2022-05-28 09:09:00 Liseth Vitale [facility] BASIC METABOLIC PANEL 2022-05-28 09:09:00 Romario Friedman [facility] (NA, K, CL, CO2, GLUCOSE, Medica l Branch BUN, CREATININE, CA) CBC WITH DIFF 2022-05-28 09:09:00 Romario Friedman [facility] FACTOR 5 LEIDEN 2022-05-28 09:09:00 Winifred [facility] FACTOR 2 [id number] MUTATION 2022-05-28 09:09:00 Liseth Vitale [facility] F5 LEIDEN AND F2 [id number] 2022-05-28 09:09:00 Liseth Vitale [facility] BASIC METABOLIC PANEL 2022-05-28 09:09:00 Romario Friedman [facility] (NA, K, CL, CO2, GLUCOSE, Medica l Branch BUN, CREATININE, CA) CBC WITH DIFF 2022-05-28 09:09:00 Romario Friedman [facility] FACTOR 5 LEIDEN 2022-05-28 09:09:00 Winifred [facility] FACTOR 2 [id number] MUTATION 2022-05-28 09:09:00 Liseth [facility] F5 LEIDEN AND F2 [id number] 2022-05-28 09:09:00 Liseth Vitale [facility] BASIC METABOLIC PANEL 2022-05-28 09:09:00 Romario Friedman [facility] (NA, K, CL, CO2, GLUCOSE, Medica l Branch BUN, CREATININE, CA) CBC WITH DIFF 2022-05-28 09:09:00 Romario Friedman [facility] FACTOR 5 LEIDEN 2022-05-28 09:09:00 Winifred [facility] FACTOR 2 [id number] MUTATION 2022-05-28 09:09:00 Liseth Vitale [facility] F5 LEIDEN AND F2 [id number] 2022-05-28 09:09:00 Liseth Vitale [facility] TRANSTHORACIC ECHO (TTE) 2022-05-27 15:47:00 [facility] Medical Bra count includes the [facility] TRANSTHORACIC ECHO (TTE) 2022-05-27 15:47:00 [facility] Medical Bra count includes the [facility] TRANSTHORACIC ECHO (TTE) 2022-05-27 15:47:00 [facility] COM[facility] W/ CONTRAST Medical Bra count includes the [facility] TRANSTHORACIC ECHO (TTE) 2022-05-27 15:47:00 Romario Friedman [facility] COMPLETE W/ CONTRAST Medical Bra count includes the [facility] CT ABDOMEN PELVIS W 2022-05-27 11:28:06 Edionwe, [facility] CONTRAST Medical Branch CT ABDOMEN PELVIS W 2022-05-27 11:28:06 Edionwe, [facility] CONTRAST Medical Branch CT ABDOMEN PELVIS W 2022-05-27 11:28:06 Edionwe, [facility] CONTRAST Medical Branch CT ABDOMEN PELVIS W 2022-05-27 11:28:06 [facility] BASIC METABOLIC PANEL 2022-05-27 09:45:00 [facility] ([facility], K, CL, CO2, GLUCOSE, Medica l Branch BUN, CREATININE, CA) CBC WITH DIFF 2022-05-27 09:45:00 [facility] GLYCOSYLATED HEMOGLOBIN 2022-05-27 09:45:00 Winifred [facility] [place] BASIC METABOLIC PANEL 2022-05-27 09:45:00 [facility] (NA, K, CL, CO2, GLUCOSE, Medica l Branch BUN, CREATININE, CA) CBC WITH DIFF 2022-05-27 09:45:00 [facility] GLYCOSYLATED HEMOGLOBIN 2022-05-27 09:45:00 Winifred [facility] [place] BASIC METABOLIC PANEL 2022-05-27 09:45:00 [facility] (NA, K, CL, CO2, GLUCOSE, Medica l Branch BUN, CREATININE, CA) CBC WITH DIFF 2022-05-27 09:45:00 [facility] GLYCOSYLATED HEMOGLOBIN 2022-05-27 09:45:00 Winifred [facility] ([facility] Medical [place] BASIC METABOLIC PANEL 2022-05-27 09:45:00 Madelin [facility] (NA, K, CL, CO2, GLUCOSE, Medica l Branch BUN, CREATININE, CA) CBC WITH DIFF 2022-05-27 09:45:00 Madelin [facility] GLYCOSYLATED HEMOGLOBIN 2022-05-27 09:45:00 Liseth Vitale [facility] [place] DUPLEX VENOUS LEGS 2022-05-27 01:08:52 Meche Zapata [facility] BILATERAL - BY VASCULAR [facility] LAB DUPLEX VENOUS LEGS 2022-05-27 01:08:52 Meche Zapata [facility] BILATERAL - BY VASCULAR [facility] LAB DUPLEX VENOUS LEGS 2022-05-27 01:08:52 Meche Zapata [facility] BILATERAL - BY VASCULAR [facility] LAB DUPLEX VENOUS LEGS 2022-05-27 01:08:52 Meche Zapata Meem [facility] BILATERAL - BY VASCULAR [facility] LAB URINE DRUG (IMMUNOASSAY) 2022-05-26 22:13:00 Ondina Yusuf [facility] SCREEN URINALYSIS 2022-05-26 22:13:00 Meche Zapata [facility] URINE DRUG (IMMUNOASSAY) 2022-05-26 22:13:00 Ondina Yusuf [facility] SCREEN URINALYSIS 2022-05-26 22:13:00 Meche Zapata [facility] URINE DRUG (IMMUNOASSAY) 2022-05-26 22:13:00 Ondina Yusuf [facility] SCREEN URINALYSIS 2022-05-26 22:13:00 Meche Zapata [facility] URINE DRUG (IMMUNOASSAY) 2022-05-26 22:13:00 Ondina Yusuf [facility] SCREEN URINALYSIS 2022-05-26 22:13:00 Meche Zapata [facility] HB ECG ROUTINE & RHYTHM 2022-05-26 21:43:55 Meche Zapata [facility] HB ECG ROUTINE & RHYTHM 2022-05-26 21:43:55 Meche Zapata [facility] HB ECG ROUTINE & RHYTHM 2022-05-26 21:43:55 Meche Zapata [facility] HB ECG ROUTINE & RHYTHM 2022-05-26 21:43:55 Meche Zaptaa [facility] XR CHEST 1 2022-05-26 21:37:08 Meche Zapata [facility] XR CHEST 1 2022-05-26 21:37:08 Meche Zapata [facility] XR CHEST 1 2022-05-26 21:37:08 Meche Zapata [facility] XR CHEST 1 2022-05-26 21:37:08 Meche Zapata [facility] MAGNESIUM 2022-05-26 21:20:00 Meche Zapata [facility] TROPONIN I 2022-05-26 21:20:00 Meche Zapata [facility] COMP. METABOLIC PANEL 2022-05-26 21:20:00 Meche Zapata [facility] ([id number]) [facility] CBC WITH DIFF 2022-05-26 21:20:00 Meche Zapata [facility] N-TERMINAL PRO-BNP 2022-05-26 21:20:00 Meche Zapata [facility] MAGNESIUM 2022-05-26 21:20:00 Meche Zapata [facility] TROPONIN I 2022-05-26 21:20:00 Meche Zapata [facility] COMP. METABOLIC PANEL 2022-05-26 21:20:00 Meche Zapata [facility] ([id number]) [facility] CBC WITH DIFF 2022-05-26 21:20:00 Meche Zapata [facility] N-TERMINAL PRO-BNP 2022-05-26 21:20:00 Meche Zapata [facility] MAGNESIUM 2022-05-26 21:20:00 Meche Zapata [facility] TROPONIN I 2022-05-26 21:20:00 Meche Zapata Mem[facility] COMP. METABOLIC PANEL 2022-05-26 21:20:00 Meche Zapata [facility] ([id number]) [facility] CBC WITH DIFF 2022-05-26 21:20:00 Meche Zapata [facility] N-TERMINAL PRO-BNP 2022-05-26 21:20:00 Meche Zapata [facility] MAGNESIUM 2022-05-26 21:20:00 Meche Zapata [facility] TROPONIN I 2022-05-26 21:20:00 Meche Zapata [facility] COMP. METABOLIC PANEL 2022-05-26 21:20:00 Meche Zapata [facility] ([id number]) [facility] CBC WITH DIFF 2022-05-26 21:20:00 Meche Zapata [facility] N-TERMINAL PRO-BNP 2022-05-26 21:20:00 Meche Zapata [facility] HOSPITAL ADMISSION 2022-05-26 05:01:00 Doctor Unasari, [facility] Name [facility] HOSPITAL ADMISSION 2022-05-26 05:01:00 Doctor Sergo, [facility] Name [facility] HOSPITAL ADMISSION 2022-05-26 05:01:00 Doctor Sergo, [facility] XR LUMBAR SPINE 3 VW 2022-05-23 09:47:55 Carlos Corbin [facility] DISCLOSURE AND CONSENT, 2022-05-19 05:01:00 Doctor Unassagnes, [facility] MEDICAL AND SURGICAL [place] [facility] Bra count includes the [facility] PROCEDURES PATIENT QUESTIONNAIRE 2022-05-17 05:01:00 Doctor Unassigned, [facility] [place] [facility] INSURANCE CORRESPONDENCE 2022-05-16 05:01:00 Doctor Sergo, [facility] Name Medical Branch INSURANCE CORRESPONDENCE 2022-05-04 05:01:00 Doctor Sergo, [facility] [place] [facility] DME/SUPPLY JUSTIFICATION 2022-04-22 06:01:00 Doctor Sergo, [facility] [place] [facility] PATIENT FINANCIAL 2022-04-13 15:27:54 Doctor Sergo, [facility] POLICY [place] [facility] SLEEP STUDY DATA REPORT 2022-04-02 06:01:00 Doctor Sergo [facility] Name Medical Branch XR HIPS 2 VW RIGHT 2022-03-24 14:56:12 Susan Manjarrez [facility] Medical Branch MR LUMBAR SPINE WO 2022-03-24 14:41:33 Delroy Farah [facility] Medical Branch INSURANCE CORRESPONDENCE 2022-02-15 06:01:00 Doctor Sergo, [facility] [place] [facility] EXTERNAL PROVIDER RECORDS 2022-02-03 06:01:00 Doctor Sergo, [facility] Name Medical Branch REFERRAL- 2022-01-17 06:01:00 Doctor Sergo [facility] REQUEST/RESPONSE [place] [facility] ASSIGNMENT OF BENEFITS 2021-12-08 15:11:38 Doctor Sergo, [facility] Name Medical Branch SLEEP STUDY DATA REPORT 2021-11-04 05:01:00 Doctor Sergo [facility] Name Medical Branch Plan of Care Planned Activity Planned Date Details Comments Source Future Scheduled 2022-10-[address] [facility] Test 00:00:00 (Season Ended) [code = Medic al Center INFLUENZA VACCINE (Season Ended)] Future Scheduled 2022-10-[address] [facility] Test 00:00:00 (Season Ended) [code = Medic al Center INFLUENZA VACCINE (Season Ended)] Future Scheduled 2022-07-19 [facility] Test 13:32:24 malignant neoplasm of colon (procedure) [code = 806688141] Future Scheduled 2022-07-19 [facility] Test 13:32:24 malignant neoplasm of colon (procedure) [code = 162746659] Future Scheduled 2022-07-19 [facility] Test 13:32:24 malignant neoplasm of colon (procedure) [code = 818466181] Future Scheduled 2022-07-19 COVID[facility]19 [facility] 13:32:24 [code = COVID-19 VACCINE (#1)] Future Scheduled 2022-07-19 Hepatitis C screening [facility] 13:32:24 (procedure) [code = 165030251] Future Scheduled 2022-07-19 [facility] Test 13:32:24 malignant neoplasm of colon (procedure) [code = 773540759] Future Scheduled 2022-07-19 [facility] Test 13:32:24 malignant neoplasm of colon (procedure) [code = 745254955] Future Scheduled 2022-07-19 SHINGLES VACCINES (1 [facility] 13:32:24 of 2) [code = SHINGLES VACCINES (1 of 2)] Future Scheduled 2022-07-19 IN[facility]ZA VACCINE [facility] 13:32:24 [code = INFLUENZA VACCINE] Future Scheduled 2022-07-19 [facility] Test 13:32:24 malignant neoplasm of colon (procedure) [code = 003836529] Future Scheduled 2022-07-19 [facility] Test 13:32:24 malignant neoplasm of colon (procedure) [code = 850121537] Future Scheduled 2022-07-19 [facility] Test 13:32:24 malignant neoplasm of colon (procedure) [code = 862018897] Future Scheduled 2022-07-19 COVID-19 VACCINE (#1) [facility] Test 13:32:24 [code = COVID-19 VACCINE (#1)] Future Scheduled 2022-07-19 Hepatitis C screening [facility] Test 13:32:24 (procedure) [code = 732748053] Future Scheduled 2022-07-19 [facility] Test 13:32:24 malignant neoplasm of colon (procedure) [code = 494529256] Future Scheduled 2022-07-19 [facility] Test 13:32:24 malignant neoplasm of colon (procedure) [code = 596955646] Future Scheduled 2022-07-19 SHINGLES VACCINES (1 Met [...] [facility] Test 23:57:37 (procedure) [code = 318455897] Future Scheduled 2022-07-10 COLONOSCOPY SCREENING [facility] 23:57:37 [code = COLONOSCOPY SCREENING] Future Scheduled 2022-07-10 SHINGLES VACCINES (1 [facility] 23:57:37 of 2) [code = SHINGLES VACCINES (1 of 2)] Future Scheduled 2022-07-10 INFLUENZA VACCINE [facility] Test 23:57:37 [code = INFLUENZA VACCINE] Future Scheduled 2022-07-10 COVID-19 VACCINE (#1) [facility] 23:57:37 [code = COVID-19 VACCINE (#1)] Future Scheduled 2022-07-10 [facility] C [facility] 23:57:37 (procedure) [code = 299815999] Future Scheduled 2022-07-10 [facility]ING [facility] 23:57:37 [code = COLONOSCOPY SCREENING] Future Scheduled 2022-07-10 [facility]ING[facility]IN[facility] 23:57:37 of 2) [code = SHINGLES VACCINES (1 of 2)] Future Scheduled 2022-07-10 INFLUENZA VACCINE [facility] Test 23:57:37 [code = INFLUENZA VACCINE] Future Scheduled 2022-07-10 COVID-19 VACCINE (#1) [facility] 23:57:37 [code = COVID-19 VACCINE (#1)] Future Scheduled 2022-07-10 [facility] C [facility] 23:57:37 (procedure) [code = 374156382] Future Scheduled 2022-07-10 [facility] Test 23:57:37 malignant neoplasm of colon (procedure) [code = 608625093] Future Scheduled 2022-07-10 SHINGLES VACCINES (1 Met [...] [facility] Test 23:24:31 (procedure) [code = 346355099] Future Scheduled 2022-07-03 [facility]COPY [facility]CREENING [facility] 23:24:31 [code = COLONOSCOPY SCREENING] Future Scheduled 2022-07-03 SHINGLES VACCINES (1 [facility] 23:24:31 of 2) [code = SHINGLES VACCINES (1 of 2)] Future Scheduled 2022-07-03 INFLUENZA VACCINE [facility] Test 23:24:31 [code = INFLUENZA VACCINE] Future Scheduled 2022-05-18 COVID-19 VACCINE (#1) [facility] 20:48:55 [code = COVID-19 VACCINE (#1)] Future Scheduled 2022-05-18 Hep[facility] C screening [facility] 20:48:55 (procedure) [code = 219404005] Future Scheduled 2022-05-18 [facility]OSCOPY SCREENING [facility] 20:48:55 [code = COLONOSCOPY SCREENING] Future Scheduled 2022-05-18 SHINGLES VACCINES (1 Met [facility] Test 20:48:55 of 2) [code = SHINGLES VACCINES (1 of 2)] Future Scheduled 2022-05-18 INFLUENZA VACCINE [facility] Test 20:48:55 [code = INFLUENZA VACCINE] Future Scheduled 2022-05-18 COVID-19 VACCINE (#1) [facility] 20:48:55 [code = COVID-19 VACCINE (#1)] Future Scheduled 2022-05-18 [facility] C [facility] 20:48:55 (procedure) [code = 807496162] Future Scheduled 2022-05-18 [facility]ONOSCOPY SCREENING [facility] 20:48:55 [code = COLONOSCOPY SCREENING] Future Scheduled 2022-05-18 SHINGLES VACCINES (1 [facility] 20:48:55 of [...] Future Scheduled 2021-10-15 HEPATITIS B [facility]ACCINES [facility] 19:26:49 (1 of 3 - 3-dose series) [code = HEPATITIS B VACCINES (1 of 3 - 3-dose series)] Future Scheduled 2021-10-15 COVID-19 VACCINE (#1) [facility] 19:26:49 [code = COVID-19 VACCINE (#1)] Future Scheduled 2021-10-15 Hepatitis C screening [facility] 19:26:49 (procedure) [code = 332132732] Future Scheduled 2021-10-15 [facility] 19:26:49 [code = COLONOSCOPY SCREENING] Future Scheduled 2021-10-15 SHINGLES VACCINES (1 [facility] 19:26:49 of 2) [code = SHINGLES VACCINES (1 of 2)] Future Scheduled 2021-10-15 INFLUENZA VACCINE [facility] Test 19:26:49 [code = INFLUENZA VACCINE] Future Scheduled 2021-10-12 HEPATITIS B [facility]ACCINES [facility] 17:47:43 (1 of 3 - 3-dose series) [code = HEPATITIS B VACCINES (1 of 3 - 3-dose series)] Future Scheduled 2021-10-12 COVID-19 VACCINE (#1) [facility] Test 17:47:43 [code = COVID-19 VACCINE (#1)] Future Scheduled 2021-10-12 Hepatitis C screening [facility] Test 17:47:43 (procedure) [code = 663714997] Future Scheduled 2021-10-12 [facility] 17:47:43 [code = COLONOSCOPY SCREENING] Future Scheduled 2021-10-12 SHINGLES VACCINES (1 [facility] 17:47:43 of 2) [code = SHINGLES VACCINES (1 of 2)] Future Scheduled 2021-10-12 INFLUENZA VACCINE Method [facility] Test 17:47:43 [code = INFLUENZA VACCINE] [...] [facility] s Test 00:00:00 (procedure) [code = [facility] 68337632] Future Scheduled [address] [facility] 00:[facility]:00 (procedure) [code = [facility] 30855500] Future Scheduled 1981 DTAP/TDAP/TD VACCINES [facility] [...] [facility] l Center colon (procedure) [code = 195015066] Future Scheduled [address] [facility] 00:[facility]:00 malignant neoplasm of [facility] Center colon (procedure) [code = 392828245] Future Scheduled [address] [facility] Test 00:00:00 malignant neoplasm of [facility] colon (procedure) [code = 481624982] Future Scheduled [address] [facility] Test 00:00:00 malignant neoplasm of [facility] Center colon (procedure) [code = 298370726] Future Scheduled 1960 Sigmoid[facility] Medical Cente r Future Scheduled [address] [facility] Test 00:00:00 (combo) [code = CT Medical C enter Colonography (combo)] Future Scheduled [address] [facility] Test 00:00:00 malignant neoplasm of Medica l Center colon (procedure) [code = 339684359] Future Scheduled [address] [facility] Test 00:00:00 malignant neoplasm of [facility]ica [facility] Center colon (procedure) [code = 839814173] Future Scheduled [address] [facility] Test 00:00:00 malignant neoplasm of [facility]ica [facility] Center colon (procedure) [code = 878194871] Future Scheduled [address] [facility] [facility] Test 00:00:00 malignant neoplasm of Medica l Center colon (procedure) [code = 638841810] Future Scheduled 1960 [facility]oscopy] Medical Cente r Encounters Start End Encounter Admission Attending Care Care Encounter Source Date/Time Date/Time Type Type Clinicians Facility Department ID 2022-06-11 Outpatient 3 [id number] [facility] PM [facility] 03:48:38 [facility] [place] 2022-06-10 Outpatient 3 [id number] [facility] PM [facility] 02:10:29 0428 [facility] [place] 2022-06-09 Outpatient 3 [id number] E[facility] PM [facility] 10:37:19 0427 [facility] [place] 2022-06-01 Outpatient R IZABELA PHAM [facility] TIFFANY [id number] Univers 14:27:32 IZABELA PHAM [facility] 2022-06-01 Outpatient 3 [id number] ENCPL REF [facility] 12:13:29 0419 [facility] [place] 2020-12-14 Emergency [facility] [id number] Univers 03:38:[address] [facility] [place] [place] 2020-12-14 Emergency [facility] [id number] Univers 02:28:[address] [facility] [place] 2020-12-14 Emergency [facility] [id number] Univers 02:03:46 ity of [facility] 2020-12-13 Emergency [facility] [id number] [facility] 2020-02-02 Inpatient [facility] [id number] [facility] 19:02:00 2020-02-02 Inpatient [facility] [id number] [facility] 19:02:00 30 2022-09-15 2022-09-15 Outpatient R LAWRENCE PETERSON [facility] 1 [id number] Univers 10:00:00 10:00:00 LAWRENCE PETERSON [facility] 2022-08-03 2022-08-03 Outpatient Zeke BECERRIL [facility] [id number] Univers 10:15:00 10:15:00 ROBINA [facility] 2022-07-18 2022-07-18 Transition ANASTASIIA Calderon 1.2.840.114 [id number] Univers 00:00:00 00:00:00 of Care Elyssa BENNETT 350.1.13.10 [id number] [address] 2022-07-16 2022-07-16 Outpatient U LAWRENCE PETERSON [facility] 1 [id number] Univers 09:11:00 12:30:00 LA[address]ENCE PETERSON ity [facility] [place] 2022-07-16 2022-07-16 Hospital TYE Peterson 1.2.840.114 [id number] Univers 09:11:00 12:30:00 Encounter Lawrence BEARD 350.1.13.10 ity of [facility] 4.2.7.2.686 Neal as [phone] [facility] [address] 2022-07-12 2022-07-12 Inpatient ER ROMARIO, [facility] Medical ICU [id number] [facility] 04:02:00 14:55:00 ELLE 2022-07-11 2022-07-11 [facility] [id number] Univers 10:09:00 11:10:00 [facility] 2022-07-11 2022-07-11 [facility] [id number] Univers 10:09:00 11:10:00 [facility] 2022-07-11 2022-07-11 Emergency abdirahman, TRAUMA 1.2.870.091 [id number] Univers 10:09:00 11:10:[facility] 350.1.13.10 [place] [id number] [facility] [address] [place] 2022-07-11 2022-07-11 Emergency X NANCY [facility] ERT [id number] Univers 04:26:00 07:38:00 RAMANA [facility] 2022-07-11 2022-07-11 Emergency Morrical, Ángel O TRAUMA 1.2. 840.114 [id number] Univers 04:26:00 07:38:00 Ramana Cruz [facility] 350.1.13 .10 [place] [id number] [facility] [address] [place] 2022-07-11 2022-07-11 Emergency [facility] 1.2.883.915 [id number] Univers 00:22:00 00:26:00 [place] 350.1.13.10 i [place] [id number] [place] [address] [place] 2022-07-08 2022-07-08 Emergency X [facility] ERT [id number] Univers 13:26:00 13:45:00 ity of [facility] 2022-07-08 2022-07-08 Emergency TRAUMA 1.2.715.386 [id number] Univers 13:26:00 13:45:00 CENTER 350.1.13.10 [place] [id number] [address] 2022-07-05 2022-07-05 Outpatient Zeke BECERRIL [facility] [id number] Univers 14:30:00 14:30:00 ROBINA [facility] 2022-07-05 2022-07-05 Outpatient Zeke BECERRIL [facility] [id number] Univers 14:30:00 14:30:00 ROBINA [facility] 2022-07-05 2022-07-05 Emergency [facility] [id number] Univers 05:53:00 11:12:00 TRACEY [facility] 2022-07-05 2022-07-05 Emergency Hilda Miller TRAUMA 1.2.840 .114 [id number] Univers 05:53:00 11:12:00 Florencegiseledenzel Tracey WHITING 350.1.13.10 [place] [id number] [address] 2022-07-04 2022-07-04 Emergency [facility] 1.2.797.143 [id number] Univers 14:13:00 14:19:00 [place] 350.1.13.10 [place] [id number] [address] 2022-07-04 2022-07-04 Outpatient Zeke BECERRIL [facility] [id number] Univers 14:00:00 14:00:00 ROBINA [facility] 2022-07-04 2022-07-04 Outpatient R [facility] ERT [id number] Univers 14:00:00 14:00:00 [facility] 2022-07-04 2022-07-04 Telephone [facility] 1.2.840.114 [id number] Univers 00:00:00 00:00:00 [facility] 350.1.13.10 it y of [place] 4.2.7.2.686 Neal as JOEL?BLEA [id number] [address] OFFICE [facility] 2022-07-04 2022-07-04 Refill [facility] 1.2.840.114 [id number] Univers 00:00:00 00:00:00 Robina HEALTH 350.1.13.10 it y of [place] 4.2.7.2.686 Neal as JOEL?BLEA [id number] [address] 2022-06-28 2022-06-28 Telephone [facility] 1.2.258.880 [id number] Univers 00:00:00 00:00:00 [facility] 350.1.13.10 i [place] [id number] [address] OFFICE [facility] 2022-06-27 2022-06-27 Outpatient R VERO [facility] [id number] Univers 13:15:00 13:15:00 IZABELA PHAM [facility] 2022-06-21 2022-06-23 Hospital ER Kaden [facility] 1 [id number] [facility] 08:54:00 18:00:00 [facility] 2022-06-23 Inpatient ER RHETT MOORE Oncology [id number] [facility] 08:54:00 18:00:00 [facility] 2022-06-22 2022-06-22 Telephone [facility] 1.2.840.114 [id number] Univers 00:00:00 00:00:00 Robina HEALTH 350.1.13.10 it y of [place] 4.2.7.2.686 Neal as JOEL?BLEA [id number] Ia edison [address] OFFICE BUILDING 2022-06-21 2022-06-21 Orders Doctor LAKESHIA 1.2.840.114 [id number] Univers 00:00:00 00:00:00 Only Unassigned, CHIRAG 350.1.13.10 ity of [place] [facility] 4.2.7.2.686 Neal as [id number] [address] 2022-06-17 2022-06-17 Telephone Jerrica [facility] 1.2.840.114 [id number] Univers 00:00:00 00:00:00 [facility] 350.1.13.10 it y of José Miguel [place] 4.2.7.2.686 Neal as JOEL?BLEA [id number] Ia alpa[address] OFFICE [facility] 2022-06-16 2022-06-16 Office Donna [facility] 1.2.840.114 [id number] Univers 11:30:00 11:45:00 Visit [facility] 350.1.13.10 [place] [id number] [address] OFFICE BUILDING 2022-06-16 2022-06-16 Outpatient R LAWRENCE PETERSON [facility] 1 [id number] Univers 11:30:00 11:30:00 LAWRENCE PETERSON ity [facility] [place] 2022-06-16 2022-06-16 Telephone Donna [facility] 1.2.049.515 [id number] Univers 00:00:00 00:00:00 [facility] 350.1.13.10 [place] [id number] [address] OFFICE BUILDING 2022-06-14 2022-06-14 Telephone Donna [facility] 1.2.598.444 [id number] Univers 00:00:00 00:00:00 [facility] 350.1.13.10 [place] [id number] [address] OFFICE BUILDING 2022-06-08 2022-06-08 Telephone LAKESHIA Pham 1.2.308.163 [id number] Univers 00:00:00 00:00:00 Izabela BEARD 350.1.13.10 i ty of [facility] 4.2.7.2.686 Neal as [id number] [facility] [address] 2022-06-08 2022-06-08 Transition ANASTASIIA Calderon 1.2.840.114 [id number] Univers 00:00:00 00:00:00 of Care Elyssa Thornton SABRINA 350.1.13.10 i ty of [place].7.2.[place] [id number] [facility] [address] 2022-05-26 2022-06-07 Inpatient U [facility] [id number] Univers 15:42:00 15:09:00 ALLAN [facility] 2022-05-26 2022-06-07 [facility] Meche Zapata 1.2.840.1 14 [id number] Univers 15:42:00 15:09:00 Encounter Luis Huerta 350.1.13.[address] [facility] 4.2.7.2.686 Lance Swift [id number] Medical Allan Lynch [address] 2022-06-07 2022-06-07 Outpatient [facility] [id number] Univers 13:00:00 13:00:00 [facility] 2022-06-03 2022-06-03 Surgery TYE Peterson 1.2.840.114 [id number] Univers 07:00:00 09:33:00 Lawrence BEARD 350.1.13.10 i ty of [facility] 4.2.7.2.686 Neal as [id number] [facility] [address] 2022-06-02 2022-06-02 Telephone [facility] 1.2.818.360 [id number] Univers 00:00:00 00:00:00 Izabela TORREZ 350.1.13.10 ity [facility] [place] [id number] [facility] [address] [facility] 2022-06-01 2022-06-01 [facility] 1.2.840.114 [id number] Univers 00:00:00 00:00:00 [facility] 350.1.13.10 it y of Blaneziyad [facility] 4.2.7.2.686 Neal as JOEL?BLEA [id number] Ia dicletty RAOEY [address] [place] MEDICAL OFFICE BUILDING 2022-05-30 2022-05-30 Surgery TYE Lynch 1.2.840.114 [id number] Univers 20:00:00 22:46:00 Allan CHIRAG 350.1.13.10 it y of [facility] 4.2.7.2.686 Neal as [id number] [facility] [address] 2022-05-29 2022-05-29 Surgery TYE Lynch 1.2.840.114 [id number] Univers 07:20:00 10:33:00 Allan CHIRAG 350.1.13.10 it y of [facility] 4.2.7.2.686 Neal as [id number] [facility] [address] [place] 2022-05-26 2022-05-26 Outpatient [facility] [id number] Univers 09:45:00 09:45:00 ROBINA [facility] 2022-05-24 2022-05-24 Outpatient [facility] [id number] Univers 00:00:00 00:00:00 WOO [facility] 2022-05-24 2022-05-24 Prep For [facility] 1.2.840.114 [id number] Univers 00:00:00 00:00:00 Surgery Izabela DWAYNEDAVIDE 350.1.13.10 ity [facility] [place] [id number] Ia edison ARENAS [address] BUILDING 2022-05-23 2022-05-23 Emergency X NEYMAR [facility] ERT [id number] Univers 16:40:00 18:12:00 [facility] 2022-05-23 2022-05-23 Emergency X NEYMAR [facility] ERT [id number] Univers 16:40:00 18:12:[address] [facility] [place] 2022-05-23 2022-05-23 [facility] 1.2.840.114 [id number] Univers 16:40:00 18:12:00 Rodrigo TORREZ 350.1.13.10 ity [facility] 4.2.7.2.[place] [id number] [facility] [address] [place] 2022-05-23 2022-05-23 Emergency [facility] 1.2.242.217 [id number] Univers 03:49:00 06:12:00 Carlos TORREZ 350.1.13.10 ity of [place]2.[place] [id number] [place] [address] [place] 2022-05-23 2022-05-23 Telephone [facility] 1.2.840.114 [id number] Univers 00:00:00 00:00:00 [facility] 350.1.13.10 it y of [place] 4.2.7.2.686 Neal as JOEL?BLEA [phone] Ia dical KNEY [address] MEDICAL OFFICE [facility] 2022-05-19 2022-05-19 Outpatient R IZABELA PHAM [facility] [id number] Univers 09:30:00 10:37:40 [facility] 2022-05-19 2022-05-19 Office [facility] 1.2.840.114 [id number] Univers 09:30:00 10:37:40 Visit Izabela TORREZ 350.1.13.10 ity of [place] [facility] [phone] Ia dical NAL [address] BUILDING 2022-05-19 2022-05-19 Orders Doctor LAKESHIA 1.2.840.114 [id number] Univers 00:00:00 00:00:00 Only Unassigned, CHIRAG 350.1.13.10 [place] of [place] [facility] 4.2.7.2.686 Neal as [id number] [facility] [address] [place] 2022-05-17 2022-05-17 Outpatient R ROGER [facility] [id number] Univers 08:00:00 08:57:35 WOO ity of [facility] 2022-05-17 2022-05-17 Orders Doctor LAKESHIA 1.2.840.114 [id number] Univers 00:00:00 00:00:00 Only Unassigned, CHIRAG 350.1.13.10 ity of [place] [facility] 4.2.7.2.686 Neal as [id number] [address] 2022-05-16 2022-05-16 Orders Doctor LAKESHIA 1.2.840.114 [id number] Univers 00:00:00 00:00:00 Only Unassigned, CHIRAG 350.1.13.10 ity of [place] [facility] 4.2.7.2.686 Neal as [id number] [address] 2022-05-05 2022-05-05 Outpatient [facility] [id number] [facility] 10:00:00 10:00:[address] [facility] [place] 2022-05-05 2022-05-05 Telephone [facility] 1.2.840.114 [id number] Univers 00:00:00 00:00:00 [facility] 350.1.13.10 it y of [place] 4.2.7.2.686 Neal as JOEL?BLEA [id number] [address] MEDICAL OFFICE [facility] 2022-05-04 2022-05-04 Orders Doctor LAKESHIA [id number] [employer] 00:00:00 00:00:00 Only Unassigned, [place] [id number] [facility] [place] [facility] [id number] Neal as [id number] [address] 2022-05-03 2022-05-03 Office [facility] [id number] Univers 09:45:00 10:15:00 Visit [facility] [id number] it y of [place] [id number] Neal as JOEL?BLEA [phone] [address] MEDICAL OFFICE [facility] 2022-05-03 2022-05-03 Outpatient [facility] [id number] [facility] 09:45:00 09:45:00 ROBINA [facility] [facility] 2022-04-22 2022-04-22 Orders Doctor LAKESHIA 1.2.840.114 [id number] Univers 00:00:00 00:00:00 Only Unassigned, CHIRAG 350.1.13.10 ity of [place] [facility] 4.2.7.2.686 Neal as [phone] [facility] [address] 2022-04-22 2022-04-22 Telephone [facility] 1.2.840.114 [id number] Univers 00:00:00 00:00:00 Strahil T [place] 350.1.13.10 ity of [place].2.7.2.[place] [id number] [address] 2022-04-13 2022-04-13 Office Macey [facility] 1.2.241.412 [id number] [facility] 09:30:00 10:00:00 Visit Dawson Decker [place] 350.1.13.10 ity of [place] 4.2.7.2.686 [place] [id number] [address] 2022-04-13 2022-04-13 Outpatient R DAWSON CHOUDHURY [facility] [id number] Univers 09:30:00 09:30:00 DAWSON CHOUDHURY ity of [facility] 2022-04-13 2022-04-13 Orders Doctor LAKESHIA 1.2.840.114 [id number] Univers 00:00:00 00:00:00 Only Unassigned, CHIRAG 350.1.13.10 it[place] of [place] [facility] 4.2.7.2.686 Neal as [phone] [facility] [address] 2022-04-13 2022-04-13 Telephone [facility] 1.2.840.114 [id number] Univers 00:00:00 00:00:00 Strahil T MULTISPEC 350.1.13.10 ity of [place]2.7.2.686 [place] CENTER [phone] [facility] AND JONAH [address] [place] [address] DI[facility] CLINIC 2022-04-07 2022-04-07 Office [facility] 1.2.840.114 [id number] Univers 10:30:00 11:02:20 Visit [facility] 350.1.13.10 it y of José Miguel [facility] 4.2.7.2.686 Neal as JOEL?BLEA [phone] [address] MEDICAL OFFICE [facility] 2022-04-07 2022-04-07 Outpatient R [facility] [id number] Univers 10:30:00 10:30:00 ROBINA ity of [facility] 2022-04-06 2022-04-06 Telephone [facility] 1.2.840.114 [id number] Univers 00:00:00 00:00:00 [facility] 350.1.13.10 it y of José Miguel [place] 4.2.7.2.686 Neal as JOEL?BLEA [phone] [address] OFFICE [facility] 2022-04-02 2022-04-02 Tube Carrier 1, [facility] Sleep Lab Bed [facility] 1. 2.840.114 [id number] Univers 20:00:00 22:30:00 Visit Dawson Choudhury 350.1.13. 10 ity of [facility] 4.2.7.2.686 [place] [facility] [phone] [facility] [address] 2022-04-02 2022-04-02 Outpatient R DAWSON CHOUDHURY [facility] [id number] Univers 20:00:00 20:00:00 DAWSON CHOUDHURY ity of [facility] 2022-04-02 2022-04-02 Orders Doctor ASHER 1.2.840.114 [id number] Univers 00:00:00 00:00:00 Only Unassigned, CHIRAG 350.1.13.10 [place] of [place] [facility] 4.2.7.2.686 Neal as [phone] [facility] [address] 2022-03-24 2022-03-24 [facility] Susan Manjarrez [facility] 1.2.840.114 [id number] Univers 08:01:23 23:59:00 Encounter SHAN 350.1.13.10 ity of [facility] 4.2.7.2.686 [facility] [id number] [place] [address] [place] 2022-03-24 2022-03-24 Outpatient R [facility] [id number] Univers 07:57:08 08:00:00 DELROY ity of [facility] 2022-03-24 2022-03-24 [facility] 1.2.840.114 [id number] Univers 07:57:08 08:00:00 Encounter Delroy [facility] 350.1.13.10 ity of [facility] 4.2.7.2.686 [facility] [phone] [place] [address] [place] 2022-02-16 2022-02-16 Telephone [facility] 1.2.840.114 [id number] Univers 00:00:00 00:00:00 [facility] 350.1.13.10 it y of [place] [facility] 4.2.7.2.686 Neal as JOEL?BLEA [phone] [address] MEDICAL OFFICE BUILDING 2022-02-15 2022-02-15 Orders Doctor LAKESHIA 1.2.840.114 [id number] Univers 00:00:00 00:00:00 Only Unassigned, CHIRAG 350.1.13.10 [place] of [place] [facility] 4.2.7.2.686 Neal as [phone] [address] 2022-02-03 2022-02-03 Orders Doctor LAKESHIA 1.2.840.114 [id number] Univers 00:00:00 00:00:00 Only Unassigned, CHIRAG 350.1.13.10 it[place] of [place] [facility] 4.2.7.2.686 Neal as [phone] [address] 2022-02-02 2022-02-02 Office [facility] 1.2.840.114 [id number] Univers 09:30:00 09:45:00 Visit [facility] 350.1.13.10 it y of [place] 4.2.7.2.686 Neal as JOEL?BLEA [phone] [address] MEDICAL OFFICE BUILDING 2022-02-02 2022-02-02 Outpatient R JERRICA [facility] [id number] Univers 09:30:00 09:40:[address] [facility] [place] 2022-01-17 2022-01-17 Orders Doctor ASHER 1.2.840.114 [id number] Univers 00:00:00 00:00:00 Only Unassigned, CHIRAG 350.1.13.10 ity of [facility] 4.2.7.2.686 Neal as [phone] [address] 2022-01-03 2022-01-03 Office [facility] 1.2.840.114 [id number] Univers 09:15:00 09:30:00 Visit [facility] 350.1.13.10 it y of [place] [facility] 4.2.7.2.686 Neal as JOEL?BLEA [phone] Ia edison KNEY 044 [facility] 2022-01-03 2022-01-03 Outpatient R ENMANUELANJUM [facility] [id number] Univers 09:15:00 09:15:00 ROBINA [facility] 2021-12-08 2021-12-08 [facility] 1.2.638.746 [id number] Univers 10:20:00 10:40:00 Visit Dawson TORREZ 350.1.13.10 ity [facility] 4.2.7.2.686 [place] [id number] Ia edison NAL 085 [facility] 2021-12-08 2021-12-08 Outpatient R DAWSON CHOUDHURY [facility] [id number] Univers 10:20:00 10:20:00 BINU CHOUDHURYPRHillary ity [facility] [place] 2021-12-08 2021-12-08 Outpatient R BINU CHOUDHURYPRHillary [facility] [id number] Univers 10:20:00 10:20:00 BINU CHOUDHURYPRL ity [facility] [place] 2021-12-08 2021-12-08 Orders Doctor ASHER 1.2.840.114 [id number] Univers 00:00:00 00:00:00 Only Unassigned, CHIRAG 350.1.13.10 ity of [place] [facility] 4.2.7.2.686 Neal as [phone] [address] 2021-12-02 2021-12-02 Office Jerrica [facility] 1.2.840.114 [id number] Univers 11:00:00 11:15:00 Visit Robina BLAKE 350.1.13.10 it y of [place] [facility] 4.2.7.2.686 Neal as JOEL?BLEA [phone] [address] MEDICAL OFFICE [facility] 2021-12-02 2021-12-02 Outpatient R JERRICA [facility] [id number] Univers 11:00:00 11:00:[address] [facility] [place] 2021-11-25 2021-11-25 Outpatient R DAWSON CHOUDHURY [facility] [id number] Univers 20:00:00 20:00:[address] [facility] [place] 2021-11-22 2021-11-22 Outpatient R DAWSON CHOUDHURY [facility] [id number] Univers 10:15:00 10:15:00 DAWSON CHOUDHURY kirit [facility] [place] 2021-11-04 2021-11-04 Tube Carrier [facility] 1.2 .840.114 [id number] Univers 10:00:00 10:15:00 Visit Dawson Choudhury 350.1.13. 10 ity of [place] 4.2.7.2.686 [facility] [phone] [facility] [address] [place] 2021-11-04 2021-11-04 Outpatient R DAWSON CHOUDHURY [facility] [id number] Univers 10:00:00 10:00:[address] [facility] [place] 2021-11-04 2021-11-04 Orders Doctor ASHER 1.2.840.114 [id number] Univers 00:00:00 00:00:00 Only Unassigned, CHIRAG 350.1.13.10 it[place] of [place] [facility] 4.2.7.2.686 Neal as [id number] [address] 2021-11-02 2021-11-02 Outpatient R ENMANUELANJUM [facility] [id number] Univers 09:30:00 10:02:[address] [facility] [place] 2021-11-02 2021-11-02 [facility] 1.2.840.114 [id number] Univers 09:30:00 09:45:00 Visit [facility] 350.1.13.10 it y of [place] 4.2.7.2.686 Neal as JOEL?BLEA [phone] [address] MEDICAL OFFICE [facility] 2021-11-02 2021-11-02 Telephone [facility] 1.2.840.114 [id number] Univers 00:00:00 00:00:00 Strahil T MULTIS[place] 350.1.13.10 ity of [place]2.7.2.686 [place] C[place] [id number] [address] DIABETES CLINIC 2021-10-07 2021-10-07 Telephone [facility] 1.2.840.114 [id number] [facility] 00:00:00 00:00:00 [facility] 350.1.13.10 it y of [place] 4.2.7.2.686 Neal as JOEL?BLEA [phone] [address] OFFICE [facility] 2021-10-05 2021-10-05 Outpatient R [facility] [id number] Univers 14:15:00 14:43:[address] [facility] [place] 2021-10-05 2021-10-05 Office [facility] 1.2.840.114 [id number] Univers 14:15:00 14:30:00 Visit [facility] 350.1.13.10 it y of [place] 4.2.7.2.686 Neal as JOEL?BLEA [phone] [address] OFFICE [facility] 2021-10-05 2021-10-05 Outpatient R [facility] [id number] Univers 14:15:00 14:15:[address] [facility] [place] 2021-09-22 2021-09-22 Office [facility] 1.2.637.034 [id number] Univers 13:40:00 14:00:00 Visit Dawson Yary SHAN 350.1.13.10 ity [facility] 4.2.7.2.686 [place] julissa RON [phone] Ia edison ARENAS [address] [facility] 2021-09-22 2021-09-22 Outpatient [facility] [id number] Univers 13:40:00 13:40:00 [facility] 2021-09-22 2021-09-22 Outpatient R [facility] [id number] Univers 13:40:00 13:40:00 [facility] 2021-09-21 2021-09-21 Letter AndrewLAKESHIA 1.2.840.114 [id number] Univers 00:00:00 00:00:00 (Out) Erma Decker [place] 350.1.13.10 it y of [facility] 4.2.7.2.686 Neal as [phone] [address] 2021-09-20 2021-09-20 Outpatient R JOEL [facility] [id number] Univers 15:00:00 15:33:41 MAGDALENE hooks o [facility] 2021-09-20 2021-09-20 [facility] 1.2.840. 114 [id number] Univers 15:00:00 15:33:41 [facility] 350.1.13.10 ity [facility] 4.2.7.2.686 Neal as JOEL?BLEA [phone] [facility] [address] [place] MEDICAL OFFICE BUILDING 2021-09-20 2021-09-20 Outpatient R JOLE [facility] [id number] Univers 15:00:00 15:33:41 MAGDALENE hooks o [facility] 2021-09-15 2021-09-15 Outpatient R JERRICA [facility] [id number] Univers 11:15:00 11:37:[address] [facility] [place] 2021-09-15 2021-09-15 Office [facility] 1.2.840.114 [id number] Univers 11:15:00 11:30:00 Visit [facility] 350.1.13.10 it y of José [place] 4.2.7.2.686 Neal as JOEL?BLEA [phone] [address] MEDICAL OFFICE [facility] 2021-09-15 2021-09-15 Outpatient R [facility] [id number] Univers 11:15:00 11:15:[address] [facility] [place] 2021-06-30 2021-06-30 Orders Doctor LAKESHIA 1.2.840.114 [id number] Univers 00:00:00 00:00:00 Only Unassigned, CHIRAG 350.1.13.10 ity of [place] [facility] 4.2.7.2.686 Neal as [phone] [address] 2021-05-24 2021-05-24 Telephone [facility] 1.2.840.114 [id number] Univers 00:00:00 00:00:00 [facility] 350.1.13.10 it y of [place] [facility] 4.2.7.2.686 Neal as JOEL?BLEA [phone] Ia alpa[address] MEDICAL OFFICE [facility] 2021-05-11 2021-05-11 Outpatient R JERRICA [facility] [id number] Univers 11:45:00 11:45:[address] [facility] [place] 2021-03-31 2021-04-02 Emergency X SYD SDNEDA ERT [id number] Univers 09:05:00 07:46:[address] [facility] [place] 2021-03-31 2021-04-02 Emergency Ladonna Bryant [facility] 1.2.8 40.114 [id number] Univers 09:05:00 07:46:00 Carlos Corbin S [facility] 350.1.13.10 ity of [place] 4.2.7.2.686 [place] [phone] [facility] [address] [place] 2020-12-21 2020-12-21 Emergency [facility] E[facility] [id number] Univers 12:12:00 16:04:[address] [facility] [place] 2020-12-21 2020-12-21 Emergency [facility] 1.2.698.636 [id number] Univers 12:12:00 16:04:00 Michael TORREZ 350.1.13.10 i ty of [facility] 4.2.7.2.686 [place] [phone] [address] 2020-12-10 2020-12-10 Outpatient Zeke [facility] [id number] Univers 09:00:00 09:00:[address] [facility] [place] 2020-12-08 2020-12-08 Emergency [facility] 1.2.480.179 [id number] Univers 05:45:00 08:15:00 Carlos Torrez 350.1.13.10 ity of [place] 4.2.7.2.686 [facility] [phone] [address] 2020-12-08 2020-12-08 Emergency X [facility] ERT [id number] Univers 05:45:00 08:15:[address] [facility] [place] 2020-11-10 2020-11-10 Outpatient [facility] [id number] Univers 13:10:00 13:10:[address] [facility] [place] 2020-11-10 2020-11-10 Outpatient Zeke [facility] [id number] Univers 09:30:00 10:05:[address] [facility] [place] 2020-11-10 2020-11-10 Office [facility] 1.2.840.114 [id number] Univers 09:22:11 09:52:11 Visit [facility] 350.1.13.10 it y of [place] 4.2.7.2.686 Neal as Joel?Blea [phone] Ia edison [address] Medical Office Building 2020-09-19 2020-09-19 Outpatient [facility] [phone] [place] 03:24:00 03:24:00 E__ 15537 Medica l Group 2020-09-04 2020-09-04 Orders Doctor LAKESHIA 1.2.840.114 [id number] Univers 00:00:00 00:00:00 Only Unassagnes, CHIRAG 350.1.13.10 ity of [place] [facility] 4.2.7.2.686 Neal as [id number] [facility] [address] 2020-08-22 2020-08-22 Outpatient [facility] 456 [place] 05:19:00 05:19:00 E__ [id number] Medica l Group 2020-08-17 2020-08-17 [address] [id number] Univers 09:00:00 09:00:00 WONDIFUL ity o f [facility] 2020-08-06 2020-08-07 [facility] Edgard Leo 1.2.840.1 14 [id number] Univers 13:41:00 23:00:00 Encounter Magali Curtis 350.1.13.10 ity of [facility] 4.2.7.2.68 Neal as [phone] [facility] [address] 2020-08-03 2020-08-05 Emergency Ted Lion 1.2.840. 114 [id number] Univers 08:54:00 16:11:00 Allen Maravilla 350.1.13.10 ity of [facility] 4.2.7.[address] [place] [address] [phone] [facility] [address] 2020-07-31 2020-07-31 Emergency [facility] 1.2.840.114 [id number] Univers 08:39:00 14:39:00 Ladonna Torrez 350.1.13.10 ity of [place] 4.2.7.2.686 [facility] [id number] [facility] [address] 2020-07-25 2020-07-25 Outpatient [facility] 456 [place] 06:29:00 06:29:00 ECHASE_ [id number] Medica l Group 2020-07-24 2020-07-24 Outpatient [facility] 456 [place] 11:00:00 11:00:00 E__ [id number] Medica l Group 2020-06-08 2020-06-08 Emergency [place], [facility] 1.2.079.120 [id number] Univers 13:48:00 17:01:00 Ted Torrez 350.1.13.10 i ty of [place] 4.2.7.2.686 [place] [id number] [facility] [address] [place] 2020-01-28 2020-01-28 Outpatient JAM, [facility] [id number] [address] [place] [address] 00:00:00 00:00:00 [facility] 2020-01-20 2020-01-20 Outpatient EGBULEFU, [facility] [id number] Mica 11:36:00 16:26:30 [facility] 2019-10-29 2019-10-31 Inpatient [place], [facility] [id number] [address] [place] [address] 00:00:00 00:00:00 [facility]ASMINE 164 [facility] 2019-03-12 2019-03-12 [facility] 1.2.840.114 [id number] Univers 14:43:00 23:59:00 Encounter [facility] 350.1.13.10 ity of 4[place]2.7.2.686 [place] [phone] [facility] [address] 2019-03-11 2019-03-12 [facility] 1.2.840.114 [id number] Univers 15:17:00 17:21:00 Encounter [facility] 350.1.13.10 ity of 4[place]2.7.2.686 [place] [phone] [facility] [address] 2019-03-11 2019-03-12 Office Surgery, Td General [facility] 1.2.8 40.114 [id number] Univers 09:09:17 08:54:29 [facility] 350.1.13.10 ity of [facility] 4.2.7.2.686 [place] [phone] [facility] [address] 2018-10-31 2018-10-31 Office Surgery, Tdc Vascular [facility] 1.2. 840.114 [id number] Univers 08:41:29 09:11:29 Visit [facility] 350.1.13.10 ity of 4.2.7.2.686 Akbar costa [phone] [facility] [address] 2014-07-22 2014-07-22 [facility] [id number] Memoria 17:51:00 21:57:00 Emergency r Titi 00 l [facility] 2014-07-22 2014-07-22 [facility] [id number] Memoria 17:51:00 21:57:00 Emergency r [place] 00 l [facility] 2014-07-22 2014-07-22 Outpatient Griffin, 2.16.840. 2.16.840.1 . [id number] 12:51:00 16:57:00 Christy 1.245036. 864297.3.61 00 Radhika 3.615.0.1 5.0.101 01 Results Test Description Test Time Test Comments Results Result Sour e Comments RAD, CHEST, 1 2022-06-15 Post-intubationReason VIEW, NON DEPT 0 for 13:01:00 exam:->encephalopathy , r/o [facility] - aspirationShould this [facility] be performed at the CHARO KAYE [...] (BEAKER) (test 3.000 <0.400 H code = 0706) 4T TOTAL SCORE (BEAKER) (test code 3 = 6739) BASIC METABOLIC [id number] 09:21:22 Test Item Value Reference Range Interpretation [...] not appl icable for dialysis patien ts P 3 Armament/Ordnance Ima Technician ID - [id number] 07:01:03 Test Item Value Reference Range Interpretation Comments PHOSPHORUS (BEAKER) (test code = 3.1 mg/dL 2.3-4.7 604) P 3 Armament/Ordnance Ima Technician ID - PABLITO WHEPATIC FUNCTION [id number] 07:01:02 Test Item Value Reference Range Interpretation [...] (test code = 21 U/L 6-55 347) P 3 Armament/Ordnance Ima Technician SHAKIRA KENNEY [id number] 07:01:02 Test Item Value Reference Range Interpretation Comments MAGNESIUM (BEAKER) (test code = 2.5 mg/dL 1.6-2.6 627) P 3 Armament/Ordnance Ima Technician SHAKIRA KENNEY WB-TYPE NATRIURETIC FACTOR (BNP)2022-07-12 06:45:03 Test Item Value Reference Range Interpretation Comments B-TYPE NATRIURETIC PEPTIDE (BEAKER) 33 pg/mL 0-100 (test code = 700) P 3 Armament/Ordnance Ima Technician SHAKIRA KENNEY [id number] 06:38:12 Test Item Value Reference Range Interpretation [...] of thrombosis is within 95-100% range. PROTHROMBIN TIME/[id number] 06:28:19 Test Item Value Reference Range Interpretation Comments PROTIME (BEAKER) (test code = 13.9 seconds 11.9-14.2 759) INR (BEAKER) (test code = 370) 1.09 <=5.90 RECOMMENDED COUMADIN/WARFARIN INR THERAPY RANGESSTANDARD DOSE: 2.0 - 3.0 Includes: PROPHYLAXIS for venous thrombosis, systemic embolization; TREATMENT for venous thrombosis and/or pulmonary embolus.HIGH RISK: Target INR is 2.5-3.5 for patients with mechanical heart valves.POCT-GLUCOSE [id number] 06:10:03 Test Item Value Reference Range Interpretation Comments POC-GLUCOSE METER 97 mg/dL 70-110 : TESTED A T [facility] 6720 (PIO) (test code = MELINDAIVELISSE Zeke ENG [place], 1538) 59523: P 3 Armament/Ordnance Ima Technician/Techni santosh ID = [id number] for Jackie Sousa COMP. METABOLIC PANEL (70370)2022-07-11 11:58:27 Test Item Value Reference Range Interpretation Comments NA (test code = 138 mmol/L 135-145 4551937283) K (test code = 4.5 mmol/L 3.5-5.0 Slight hemoly sis 9180266981) CL (test code = 101 mmol/L 98-108 8819045623) CO2 TOTAL (test 23 mmol/L 23-31 code = 4522854496) AGAP (test code = 14 2-16 0201421394) BUN (test code = 14 mg/dL 7-23 Slight hemo lysis 6993516936) GLUCOSE (test code 94 mg/dL 70-110 = 9161266119) CREATININE (test 0.67 mg/dL 0.60-1.25 code = 7163601126) TOTAL BILI (test 0.6 mg/dL 0.1-1.1 code = 6773963105) CALCIUM (test code 9.0 mg/dL 8.6-10.6 = 9089471968) T PROTEIN (test 7.2 g/dL 6.3-8.2 code = 0027371700) ALBUMIN (test code 4.5 g/dL 3.5-5.0 = 8118555225) ALK PHOS (test 88 U/L 34-122 Slight hemoly sis code = 8018586677) ALTv (test code = 31 U/L 5-50 1742-6) AST(SGOT) (test 40 U/L 13-40 Slight hemol ysis code = 0337180552) eGFR (test code = 121.4 mL/min/1.73m2 6050744282) DEWAYNE (test code = Association of DEWAYNE) [...] in imaging tests). [facility] WITH [id number] 11:18:00 Test Item Value Reference Range Interpretation Comments WBC (test code = 7.15 See_Comment [Automated 3001-2) message] The sy stem which generated this result transmitted reference range : 4.20 - 10.70 10*3/?L. The reference range was not used to interpret this result as normal/abnormal . RBC (test code = 3.45 See_Comment L [Automated 594-8) message] The sy stem which generated this [...] (test code = 53.9 fL 38.5-51.6 H 91782-8) RDW-CV (test code = 17.2 % 12.1-15.4 H 788-0) PLT (test code = 400 See_Comment H [Automated 777-3) message] The sy stem which generated this result transmitted reference range : 150 - 328 10*3/ ?L. The reference r mitra was not used to interpret this result as normal/abnormal . MPV (test code = 8.8 fL 9.8-13.0 L 60935-6) NRBC/100 WBC (test 0.0 See_Comment [Automat ed code = [id number]) message] The system which generated this result transmitted reference range : 0.0 - 10.0 /100 WBCs. The refer ence range was not u sed to interpret th is result as normal/abnormal . NRBC x10^3 (test code See_Comment [Auto mated = [id number]) message] The s ystem which generated this result transmitted reference range : 10*3/?L. The reference range was not used to interpret this result as normal/abnormal . GRAN MAT (NEUT) % 71.5 % (test code = 770-8) IMM GRAN % (test code 0.40 % = [id number]) LYMPH % (test code = 17.6 % 736-9) MONO % (test code = 7.4 % 5905-5) EOS % (test code = 1.8 % 713-8) BASO % (test code = 1.3 % 706-2) GRAN MAT x10^3(ANC) 5.11 10*3/uL 1.99-6.95 (test code = [id number]) IMM GRAN x10^3 (test 0.03 10*3/uL 0.00-0.06 code = [id number]) LYMPH x10^3 (test code 1.26 10*3/uL 1.09-3.23 = 731-0) MONO x10^3 (test code 0.53 10*3/uL 0.36-1.02 = 742-7) EOS x10^3 (test code = 0.13 10*3/uL 0.06-0.53 711-2) BASO x10^3 (test code 0.09 10*3/uL 0.01-0.09 = 704-7) Lab Interpretation Abnormal (test code = 80836-7) [facility]:27:00 Test Item Value Reference Range Interpretation Comments POCT GLU (test code = [id number]) 95 mg/dL 70-110 Lab Interpretation (test code = Normal 54367-6) [facility]. METABOLIC PANEL ([id number])2022-07-05 13:14:57 Test Item Value Reference Range Interpretation Comments NA (test code = 137 mmol/L 135-145 3860384904) K (test code = 4.2 mmol/L 3.5-5.0 7617248925) CL (test code = 100 mmol/L 98-108 6475261186) CO2 TOTAL (test code = 24 mmol/L 23-31 5701778939) AGAP (test code = 13 2-16 1802200966) BUN (test code = 11 mg/dL 7-23 6319668754) GLUCOSE (test code = 124 mg/dL 70-110 H 7945438820) CREATININE (test code = 0.81 mg/dL 0.60-1.25 3764089765) TOTAL BILI (test code = 0.6 mg/dL 0.1-1.5 9817771679) CALCIUM (test code = 9.1 mg/dL 8.6-10.6 0342623436) T PROTEIN (test code = 7.0 g/dL 6.3-8.2 1257028255) ALBUMIN (test code = 4.3 g/dL 3.5-5.0 6591153735) ALK PHOS (test code = 103 U/L 34-122 6671838152) ALTv (test code = 28 U/L 5-50 1742-6) AST(SGOT) (test code = 39 U/L 13-40 4075673325) eGFR (test code = 97.5 mL/min/1.73m2 1293058150) DEWAYNE (test code = DEWAYNE) Association of [...] tests). Lab Interpretation Abnormal (test code = 71529-3) [id number] 12:25:35 Test Item Value Reference Range Interpretation Comments NT-proBNP (test code = 523 pg/mL <=125 H 5754571586) DEWAYNE (test code = DEWAYNE) Biotin has been reported to cause a negative bias, interpret results relative to patient's use of biotin. Lab Interpretation (test Abnormal code = 04664-3) [facility] [id number] 12:25:35 Test Item Value Reference Range Interpretation Comments TROPONIN I (test code = 0.009 ng/mL <=0.034 8324405342) DEWAYNE (test code = DEWAYNE) Reference (Normal) [...] biotin. Lab Interpretation Normal (test code = 66757-5) [facility] WITH [id number] 12:01:31 Test Item Value Reference Range Interpretation Comments WBC (test code = 7.09 See_Comment [Automated 8390-2) message] The sy stem [...] (test code = 52.8 fL 38.5-51.6 H 15597-9) RDW-CV (test code = 16.1 % 12.1-15.4 H 788-0) PLT (test code = 436 See_Comment H [Automated 777-3) message] The sy stem which generated this result transmitted reference range : 150 - 328 10*3/ ?L. The reference r mitra was not used to interpret this result as normal/abnormal . MPV (test code = 8.9 fL 9.8-13.0 L 62320-6) NRBC/100 WBC (test 0.3 See_Comment [Automat ed code = 5602355646) message] The system which generated this result transmitted reference range : 0.0 - 10.0 /100 WBCs. The refer ence range was not u sed to interpret th is result as normal/abnormal . NRBC x10^3 (test code 0.02 See_Comment [Auto mated = 3336640293) message] The s ystem which generated this result transmitted reference range : 10*3/?L. The reference range was not used to interpret this result as normal/abnormal . GRAN MAT (NEUT) % 69.0 % (test code = 770-8) IMM GRAN % (test code 0.40 % = 0862615079) LYMPH % (test code = 16.1 % 736-9) MONO % (test code = 12.7 % 5905-5) EOS % (test code = 0.8 % 713-8) BASO % (test code = 1.0 % 706-2) GRAN MAT x10^3(ANC) 4.89 10*3/uL 1.99-6.95 (test code = 4682863239) IMM GRAN x10^3 (test 0.03 10*3/uL 0.00-0.06 code = 7250473465) LYMPH x10^3 (test code 1.14 10*3/uL 1.09-3.23 = 731-0) MONO x10^3 (test code 0.90 10*3/uL 0.36-1.02 = 742-7) EOS x10^3 (test code = 0.06 10*3/uL 0.06-0.53 711-2) BASO x10^3 (test code 0.07 10*3/uL 0.01-0.09 = 704-7) Lab Interpretation Abnormal (test code = 44571-7) [facility] RE[facility] [id number] 14:13:16 Test Item Value Reference Range Interpretation Comments SCAN RESULT (test code = 0204277) UFH LOW DOSE 0.1 (2) See sca nned report. (BEAKER) (test code = 2593) See scanned reportU/S, RENAL, [id number] 17:23:00Reason for exam:->hydronephrosis [facility] 1960 Sex: MFINAL [...] 06/23/2022 17:23:41 CBC W/PLT COUNT & AUTO [id number] 05:58:22 Test Item Value Reference Range Interpretation [...] (BEAKER) (test code = 2801) U/S, ABDOMINAL, [id number] 16:48:00Abdomen limited area? Add comment if clarification is needed.->Right upper quadrantReason for exam:->elevated Tbili - please evaluate [facility] : 1960 Sex: MFINAL [...] right upper quadrant ultrasound. Signed: Jm Baeza [facility] Verified Date/Time: 6:48:01 SERUM [id number] 16:04:04 Test Item Value Reference Range Interpretation Comments IMMUNOGLOBULIN A (IGA) 146 mg/dL 63-484 (BEAKER) (test code = 639) IMMUNOGLOBULIN G (IGG) 704 mg/dL 540-1822 (BEAKER) (test code = 427) IMMUNOGLOBULIN M (IGM) 72 mg/dL 22-293 (BEAKER) (test code = 638) SERUM IT ID [id number](BEAKER) No monoclonal (test code = 3817) protein detected. [facility]-PATHOLOGIST-"[id number] [facility], " (BEAKER) (test code = M.D. 7854) Clinical Nail Expert - SFOperator ID - ADMINPROTEIN ELECTROPHORESIS, SERUM WITH REFLEX TO [id number] 16:03:41 Test Item Value Reference Range Interpretation [...] (test code = increased. 2615) Non-specific change. [id number]-410 [facility] Bucky, (BEAKER) (test code = M.D. 3786) PROTEIN TOTAL SERUM, 6.6 gm/dL 6.0-8.3 SPEP (BEAKER) (test code = 4270) Clinical Nail Expert - SFOperator ID - ADMINOperator ID - ADMHEPARIN ANTIBODY 2022-06-22 12:12:51 Test Item Value Reference Range Interpretation Comments HEPARIN ANTIBODY Positive-See Serotonin Negative A (BEAKER) (test code = Release Assay for 646) Confirmation HEPARIN ANTIBODY OD 3.000 <0.400 H (BEAKER) (test code = 2659) 4T TOTAL SCORE 5 (BEAKER) (test code = 2661) [id number] 05:50:16 Test Item Value Reference Range Interpretation Comments HAPTOGLOBIN (BEAKER) (test code = 308 mg/dL 14-258 H 366) P 3 Armament/Ordnance Ima Technician ID - ADMINOperator ID - ADMINVITAMIN [id number] 05:20:33 Test Item Value Reference Range Interpretation Comments VITAMIN B12 (BEAKER) (test code = 359 pg/mL 213-816 774) P 3 Armament/Ordnance Ima Technician ID - [id number] 05:20:33 Test Item Value Reference Range Interpretation Comments FERRITIN (BEAKER) (test code = 415.83 ng/mL 5.00-275.00 H 361) P 3 Armament/Ordnance Ima Technician ID - DOMINIQUE, TIBC, % SAT. (WITHOUT FERRITIN)2022-06-22 04:59:45 Test Item Value Reference Range Interpretation Comments IRON (BEAKER) (test code = 547) 38.0 ug/dL 40.0-160.0 L TOTAL IRON BINDING CAPACITY 311 ug/dL 250-450 (BEAKER) (test code = 769) IRON % SATURATION (2) (BEAKER) 12 % 20-55 L (test code = 2590) P 3 Armament/Ordnance Ima Technician ID - MARCORETICULOCYTE [id number] 04:53:40 Test Item Value Reference Range Interpretation Comments RETICULOCYTE COUNT PCT (BEAKER) (test 5.7 % 0.5-1.8 H code = 575) P 3 Armament/Ordnance Ima Technician ID - 6000CBC W/PLT COUNT & AUTO [id number] 04:53:36 Test Item Value Reference Range Interpretation [...] (BEAKER) (test code = 2801) HEPATIC FUNCTION [id number] 04:48:30 Test Item Value Reference Range Interpretation [...] (test code = 19 U/L 6-55 347) P 3 Armament/Ordnance Ima Technician ID - ADMINLACTATE DEHYDROGENASE (LDH)2022-06-22 04:48:30 Test Item Value Reference Range Interpretation Comments LACTATE DEHYDROGENASE (BEAKER) (test 271 U/L 125-220 H code = 635) P 3 Arm[employer]/Ordnance Ima Technician ID - ADMINBASIC METABOLIC [id number] 04:48:29 Test Item Value Reference Range Interpretation [...] not appl icable for dialysis patien ts P 3 Armament/Ordnance Ima Technician ID - [id number] 04:48:29 Test Item Value Reference Range Interpretation Comments MAGNESIUM (BEAKER) (test code = 2.2 mg/dL 1.6-2.6 627) P 3 Armament/Ordnance Ima Technician ID - ADMINCOMPREHENSIVE METABOLIC [id number] 13:27:13 Test Item Value Reference Range Interpretation [...] not appl icable for dialysis patien ts P 3 Armament/Ordnance Ima Technician ID - JSCBC W/PLT COUNT & AUTO [id number] 13:14:04 Test Item Value Reference Range Interpretation [...] PERCENT (BEAKER) (test code = 2801) PROTHROMBIN TIME/[id number] 13:13:03 Test Item Value Reference Range Interpretation Comments PROTIME (BEAKER) (test code = 15.2 seconds 11.9-14.2 H 759) INR (BEAKER) (test code = 370) 1.28 <=5.90 RECOMMENDED COUMADIN/WARFARIN INR THERAPY RANGESSTANDARD DOSE: 2.0 - 3.0 Includes: PROPHYLAXIS for venous thrombosis, systemic embolization; TREATMENT for venous thrombosis and/or pulmonary embolus.HIGH RISK: Target INR is 2.5-3.5 for patients with mechanical heart valves.SARS-CoV2/RT-PCR ([facility]) 2022-06-21 13:03:14 Test Item Value Reference Interpretation Comments Range SARS-COV2/RT-PCR Negative Negative The SARS-Co V-2 (test code = target nucleic 08427-6) acids are not detected in thi s [...] revoked sooner. Fact Sheet for Healthcare Providers: https://www.KSE/Documents/Xp ert%20Xpress%20SAR S%20CoV-2/Fact%20S heets/302-3802%20S ARS-COV-2%20HEALTH CARE%20PROVIDERS%2 0FACT%20SHEET.pdf Fact Sheet for Healthcare Patients: https://www.KSE/Documents/Xp ert%20Xpress%20SAR S%20CoV-2/Fact%20S heets/302-3801%20S ARS-COV-2%20PATIEN T%20FACT%20SHEET.p df Lab Interpretation Normal (test code = 45286-3) [facility]2022-06-21 13:03:14 Test Item Value Reference Interpretation Comments Range SARS-COV2/RT-PCR Negative Negative The SARS-Co V-2 (test code = target nucleic 39805-3) acids are not detected in thi s [...] revoked sooner. Fact Sheet for Healthcare Providers: https://www.KSE/Documents/Xp ert%20Xpress%20SAR S%20CoV-2/Fact%20S heets/302-3802%20S ARS-COV-2%20HEALTH CARE%20PROVIDERS%2 0FACT%20SHEET.pdf Fact Sheet for Healthcare Patients: https://www.KSE/Documents/Xp ert%20Xpress%20SAR S%20CoV-2/Fact%20S heets/302-3801%20S ARS-COV-2%20PATIEN T%20FACT%20SHEET.p df Lab Interpretation Normal (test code = 05162-6) [facility])2022-06-21 13:03:14 Test Item Value Reference Range Interpretation Comments SARS-COV2/RT-PCR Negative Negative The SARS-Co V-2 target (test code = nucleic acids a re not 7644844) detected in thi s specimen. Negative result [...] revoked sooner. Fact Sheet for Healthcare Providers: https://www.PayParrot m/Documents/Xpert%20Xpress%20SARS%20CoV-2/Fact%20Sheets/302-3802%68OMBE-HXE-4%20 HEALTHCARE%20PROVIDERS%20FACT%20SHEET.pdf Fact Sheet for Healthcare Patients: https://www.Photoblog/Documents/Xpert%20Xp ress%20SARS%20CoV-2/Fact%20Sheets/302-3801%41CCPI-RZY-5%20PATIENT%20FACT%20SHEET .pdfSURGICAL PATHOLOGY [id number] 19:37:37 Test Item Value Reference Range Interpretation Comments Case Report (test code Surgical Pathology ? ? = [id number]) ?Case: [id number] ? Authorizing Provider: ?Lawrence Peterson MD ?Collected: ? 06/03/2022 1042 ?Ordering Location: ? ? [facility] OR ? Received: ?06/03/2022 1154 ? Department ? Pathologist: ? Fer, Tatyana, ? MD PhD ? Specimen: ? ?OTHER, IVC FOREIGN BODY ? Final Diagnosis (test v7sitZNeUGRqd7psKITfiF code = 3589996183) FuZzEwMzNcZnRuYmpcdWMx IHtccnRmMVxlcGljMTAyMD FaMF4gkCwtrRw7wMojMYBq nrF0dLMoMBhsn8duNIW6t4 bbsocaOKHbPMgoWd5cmHSn cOlfWoTkTFRhNKb3jT25OF WblV3zaQHpYVc4URYcgOMb bnDiHrQyPHZrqTSejSL8SI LxBN4siuukQDvoJBipGTEi ygR0OJSlaCTfH5MzLVVjKJ 3bicpsSYB0GEgdGKUqCMK0 LcWvQMLwa0Pptdk3EmPdiR FyZFxwbGFpblxmczIwXHBh ciBBLiBIRUFSVCwgUkVNT1 ZBTCBPRiBJTkZFUklPUiBW OB0FSXPQGrNlSr7DGWuKQw YMF5DIUaFpbZQwLXUkHTEw NC5LHLLALBgITM1PBUhCHQ yxTPDPPRVQKPHROzLKJ4DR BlBgU1lWYJAGJaQCHfuAPl SOKH4RHHCQGpJeNwoLLGYT MMgpOFUwCFEoDTKfB5Ryt8 ZcIHwacIrjIFVuc58nc60t sFhfj2VwSPgjw6SuBDAxd6 SbgAG0kE2oAY5vRTCphuKg IPDrKROHCTVnA16OCNFWQQ 1xcIVbeKduyoEhAPbdu7Ru T4CrTxNyRFjvbjEvOBPjWp ppwtbaJWRkZCE9wsSqFBUe NWopRASiSLysHo1haVUhgR nzMgPaBDIuk5popaQHWLvj EfQgB577AQDaRGmax7gth7 RyQCRmzRTku4K6XBZExtph aQk5n8gqYlSwToX8eGRwDM orG5fxhaCogGIeJ3KytLAj mSs9fDiyJ64pe2Q5LepiR9 nkJZLmDEXgZ4YiFD0gBZVo Vip0QVE8CCN7DMKmWZWlI1 MkKH5mHKQgxBFhDLz2e2ag mZzhISWkXBW1v3hhQLduxq M0CS0bsi9kxJp6j0srujCl FEPkBWZkmWHJEAIaR1TetM diKg1buMf0oHnhFktsHWA5 Hfu7YV9dop02rng4lAawHQ GdqvodYtI0BUebKUFxfeyn EOd0BFiiEAHipPG0YWBijM SpQ3XsGZGdJV7mnbu4SQT8 UGsyHZTiTqS8STQwwMBmKX WvlPvuDRcio017HMB6MgPv FF4fQ7Vzs6I4fP2bhKCyBL CcsIDdNlGbFEXoir3qcEJx DQhxm3UeXYH4veY9hDEsjV AhZHUmKQ41Ylccn1WzMbqk OJM2WVIbdiSgd8Puq3dmVg LadfRzA2cxV1XbMFEwOTEi HMBqJkRtafRto0Mcq0OpwM NlcNb9i3wqICZnJUKmaYha y9iqGNF6SKApW2C5wFFgn5 dgFIniEBHllNI4mjG4GJIh hFWpR0PusY1mKUTbQH2ads m6y4brYDL9ZOuxXTIzXfR9 lsH8FKVbqXEfMFVcpHipWJ vez548MLT0HwIzBAPpa3Av S6QmjQctP87liMtbO22pMN OlvNxbpA6vuSsuoF9sVbXl ZnMyNFxxbFxwbGFpblxmMV xmczIwXGxhbmcxMDMzXGhp Q7jwPhYxKLNudVutETjdt5 NoXGYxXGNmMlxmczIwXHBh hdQAXNbqdtLxhOYsq28cNJ xseSByZXZpZXdlZCBhbGwg l6DaY0ufSW3qK0VcrZIzzr FobuZfNQjvKMTay6u3oZNe fTcwj0QfzOSwKC04kaVbXO TjPQT3TVPif9znBQ99wzxc OvMbaB87caQfpvNtDRAnw0 bgS1tjiSWok6Wtm6EtqhCo ATxfj6ZvMB7kzVJwyevahD W9DWPrrOEueeAuqpM6xPtr FJSkpZ6wuS0byGmijO1kBy FmHjNuCXujRA8aFVJpE7hw bUCtXRMtGCAzT2hqVvJfuD 9ezPrlNdfpjnG4WMIyql37 Final Diagnosis Comment y5wpdTZmAWHmzCVkWVMjFy (test code = nfryWlBIQhqIKtR0Pbfrts 8515756750) TFebCA9mVW4msAyvlIBwbM BdWKKrFmKfn9qxk329xQWd t4dbHGCAslwyqSy5dCitX4 5zu7H1KvcuO0lgPEZ0WOsg glZfjqBmNZSvoHM2XPdeog WrFgO8PIjeHXMfCpP0JHYo gFDmHUX0yRvqBRJrncduRl B8APuzYEWjjowrZDd0LItq GUZmhTH2DWAcgOBnE2QdVN VvVX3rpqe8GME4BUaaYHDw SjP0PDVuzDAzUQEfwBdrAZ qzs351PED6WdXlSGJkedAe rZkpwN3qFaRwGCmnJoOuU1 hjYnBhdDJccGFyIFRoZSBh Wq09CGQirHNpaU1fvdEcvR Y6TNIdTJJaJNP2HbnjP7Hp PMB4wsKfoa3qzeIqgHAkbW 8lnXdxvkFgvoz1WHS4cHDi AJDajcFqzeSpx7X2WVPnj4 K4DSStc2GyqBqjio6rN77v kSPfOILlnGWiuYfrsm6xRB YgdGhlIHNwZWNpbWVuIGlz PL7zTWJnOLHci9Gxh8GrUC EdceDqy86bqxzcqEnuZVJc WPPeynQsH6YqoGnfMGEht8 ZsnME2xQ1pv4zpk7JwZOWc cn0= Clinical Information Acute deep vein (test code = thrombosis (DVT) of 5819471289) iliac vein of both lower extremities [I82.423] Gross Description (test g8zecMYiGPVisKEtTDCpBw code = 8748186824) zhjhDyODWysCVyD5Fzjpkv HGigFY1fJC5wiZhmsYYusX QdTBAhNfBxw5gio260eEOc l8zgIGEZwpwgfAl7pKzdO1 9rz2C3RvxjE73xtKHdNGC6 XZSlPDKalBKuNWDzBFF2FO JssLTfB5jkMLWjED2oqcbz YYsyULveCEAanQX7ZXUpdA UgG1HlJSZjRKudMSZswnc9 LzQcYr4blQTelOhtXXxlWk vfmMeed9RmbPOtIZdrBKJb KBApRWxpMCZcM7RIFCRiTt w8JYIrVTYhNpCTAKN3XgA5 XGJgQSNFNQOfJXsuWNG3Op kyIiBMUlIgODAwMDAwMDAw MEEfMK3aVYgctVIeBUoqSe vuABteW525FCscXMGtP0Ew C1ThFBqcCHE3SOMfFdSbHJ LuFQ3UJuBhKLC4KQRdEzTv DUs0IVm4PP2AQoJuWWGqOw J7IaUzRJEfOLy6LUcoCO1B SWV7FXSaOzb2XYvsEPB6QL VnMUh4WYYvKNnmgtKqVJnu IcycOZgkW51wfSUsTTqmjO FpblxmczIwIFNQRUNJTUVO QKXtyUQwHSWdeiBsy0KuHJ vgyVdeNYFrIbCprOcmaA1r QtRhEXFEkWXfwX3epoOHMY gyMMPbN5BoxnWpLUYsIJLt IGxhYmVsbGVkIHdpdGggdG keMRVvjPaezxGuY0U0daCa OR9xUZXCKTNaeY4ySRLxSB RqYNPZOQSwvgTnL73pEw0o rDbnDkDgA9Z6VWRjSFZtt6 0ndMG3raIzXkBfBE7gtZHr lMktZX75tTEwhVWtmyjdHR PaMRWaW2FsGBEchuhnRZZq BN92DYdfNx9fQDnuIE50JF YzZRezP3Omy8HckNPto59f aJT8SX68ZKytdEhkZP1bnI 6pGBQkv7GvehLeSNWcZJWf EOYmnQTaay7hHLfzu2FcUJ 5qSIfbBVgqtBthyE8fwkMo nJOaGEKoCMIcx2FbQfFEsA Eod5SxI8ohIQ5luTVePp3w FVqcz7HdPVU0TG8vxlF1uH 5yJV2ljPhfRXadYUXnxUOf ZFxmczIyXHBhclxzYTMwXG XizYJEw9MnBDNCiZjfGFTQ V8wsrOLcSSygKTUUBKbQZ4 ADTGatSCYkZ8SiA5BgeqJ8 x0hafIilp2QqxNJpLD8yvP FyfQ== Disclaimer (test code = s0ywhQQlXZXdc1odCIRktP 8609214540) FuZzEwMzNcZnRuYmpcdWMx SSvyzfYlSIpdm0PcF1CkVj AwMFxhbnNpXGRlZmxhbmcx COMzRBP3tbPgFSGwFUquSV VyAGqgEm2kmXRqtFjsTqMo NWQll6sgqkNYOXjdInByY0 16PLYzYUxyh5myt7NlQEHn pWSyt9X6PGUUrnnhuMs3zH avK89pm9E7PmsrD5ejBTBs HEGyJ2OyGC4hUXRiOtk5ZO D4AAC7NCYjPIZsC4EjXA6h WHLoxQWgVDb2q0uivOvaRV DtXAX0x6xcVJfnimDgUT6i xp0wdBo1x0frxtYhFINqIZ OulJIZUGPiE2YzjEptXw6c yVe2oNfsZkwaJKY9Obt6CM 4sga94vko3zFcbQAUprrie UpI5LJvcGDOykwgpQLg4MB puXDNwuZT0AZBypXWeL4Lf DROwRN7gsir1CBX1WAlfDJ SmPsW8EVJevFTeWMEcjTsm OCfpi273BSK8XhLeEZ4oY1 Ajc2D5zM7paYHbHLCwzEJf BhPjPOBxbb1hnJInXIkec8 KpUTB2iqJ0lEGayIZqEUMo UQ63Xlqpp1MbNfdta1BiR5 6uqEF4KMsbq0diCS3gNkB0 exNtEHygo9rykM3iWvI6WY onBA5wWL7vAXHzdF2wowlw XHBnYnJkcmhlYWRccGdicm QsWr7znTwsGCG8ONldE1qa lP6fDyH4LUauA0jexZ0hEG j0CTnjwXH9RXDzkL1rQZ1q juvvq4bpMOenCAbbLQIqip V1zwR3BNZesARhQ8AauA8j OZSdPI4zerztu6pmCYD3FZ fqEKJrJHT6UaGcNYOqd9Jp mfc5ByTed2OgoFMhZOsyI7 3sa403RCCqisXyM2lwiEPk otxgpAAehyifWHkkutL0HA KzywIta2OfYCCiXDZ6RZxd MZevwVZcEPAfqSxrd9zmA8 RscGFyXHBsYWluXGYxXGZz MjBcbGFuZzEwMzNcaGljaF shPDkmRoRfCAWaBGuqY6st DoOyR0CsRFKhHiRhyQUyA3 ggVGhpcyByZXBvcnQgbWF5 GKytR8u0GKXzkwVpfDe9wd AyQiTbPUBpPEG8CRgixPCi IWNnh7VfuduayQIuXr8lfT QcKBNwqY9aDUZjKFSjZCfn NC2xcOw6OXQHjQBqbHVsGd IYBYZdWL91vhTzQDBSfxgy r8Y8GNykGHElz3NpyOUrI9 lwe4AwTPUab48pHO8fh3J8 k1qlCDY8ZH2qf3WwUUXqhS PakNLkCCMcu3Vuahiij9Mv BOJjxsMla2NlZNWwtrVywU XgZVTbkyPvku8rvqShGVBw OYOxW8UtbboedNksjuPiUY Lnvf4yyrSbMRX9COJPATZx PLZrw4AlfT5pwZLPCVC9fK Nfbv3mqwZJtNFzGWLoya67 TMFhPM3vP3jmTMRpWHXojl YchQLfm3SfJTDbsYA5dRMn CH1ZTxQJw53gTJSpQPWKky RvKKZafUejlQH2vkN2tF7v IChGREEpLlx+IFRoZSBGRE UpHA6jduUru9YkxfWlsWfc YSNlvNUeu8HtgQLkm8IcpV qkp1GflHWeuBFrHT8aSCPl clxwYXIgVVRNQiBMYWJvcm P0h1BzYUJxGWKdTGP2jBmv adz9LIOnyA6nFXHjV7bumg snXTjqJZDny9YfkA5yaICK vAMfo4LyfTRqqLIMtKRlCX 0qixVhEXiRKUoQZWA6toFa MLSis2CaTUjsH6pdQ33juY mwkDi9lFB2YCL7aK1hClz+ IFxwYXJccGFyIEFwcHJvcH OmQSZtfJkqkvRlH3EtpiHn hQ2cpVTfzxJzGI6tOQ8nA3 O2aWNlRKNacxKjt5tuBXpp dmUgYmVlbiByZXZpZXdlZC Xcw5UbVQipXLY2GIofykWu bmNsdWRpbmcgSCZFLCBTcG EroIKxSQV8GXofuxTlxlVx BY7zlZ4uwYpnkF7sdVMyjM U1kypnCGMlRDGoiBpzWBEe SX1goVTaJSNymoHOvVxcuJ DonY0cB5LaKKXqICJlnc4r CMMrxP2sUKofn9HwcrzyUS JtGJHzKCJxgbApfb7qNLHn uSLXHN9MJGhbwDDue5Lyjp ElH6kOSEG4ANDbOlAyZkcz CSDgoWBhcQRpKELfww32HT RtzI4dzBqoKPIrzN0xgJ9z eEsqnD0mLmCrXcNdUDseOK 4jGGLwA7bfpGXdSVUcOKKv Y7qvYcJhsI1vhNntZGtlFz TwVfZtTNumPYT3qS== Embedded Images (test code = 3919048934) [facility] METABOLIC PANEL (NA, K, CL, CO2, GLUCOSE, BUN, CREATININE, CA)2022-06-07 09:52:38 Test Item Value Reference Range Interpretation Comments NA (test code = 135 mmol/L 135-145 2005087384) K (test code = 4.0 mmol/L 3.5-5.0 2782838892) CL (test code = 104 mmol/L 98-108 8714430333) CO2 TOTAL (test code = 25 mmol/L 23-31 6231631045) AGAP (test code = 6 2-16 8821330298) BUN (test code = 16 mg/dL 7-23 2414291352) GLUCOSE (test code = 144 mg/dL 70-110 H 6975991160) CREATININE (test code = 1.10 mg/dL 0.60-1.25 2521780911) CALCIUM (test code = 8.4 mg/dL 8.6-10.6 L 7248862826) eGFR (test code = 68.5 mL/min/1.73m2 1713153864) DEWAYNE (test code = DEWAYNE) Association of [...] tests). Lab Interpretation Abnormal (test code = 97158-5) [facility] Test Item Value Reference Range Interpretation Comments MAGNESIUM (test code = 6381669100) 2.5 mg/dL 1.7-2.4 H Lab Interpretation (test code = Abnormal 52563-7) [facility]38 Test Item Value Reference Range Interpretation Comments PHOSPHORUS (test code = 4941183732) 3.9 mg/dL 2.5-5.0 Lab Interpretation (test code = Normal 98762-2) [facility] [id number] 12:15:07 Test Item Value Reference Range Interpretation Comments WBC (test code = 6.35 See_Comment [Automated 4928-2) message] The sy stem which generated this result transmitted reference range : 4.20 - 10.70 10*3/?L. The reference range was not used to interpret this result as normal/abnormal . RBC (test code = 2.65 See_Comment L [Automated 101-8) message] The sy stem which generated this [...] RDW-SD (test code = 51.5 fL 38.5-51.6 00460-5) RDW-CV (test code = 15.9 % 12.1-15.4 H 788-0) PLT (test code = 115 See_Comment L [Automated 777-3) message] The sy stem which generated this result transmitted reference range : 150 - 328 10*3/ ?L. The reference r mitra was not used to interpret this result as normal/abnormal . MPV (test code = 9.9 fL 9.8-13.0 22747-2) IPF % (test code = 2.9 % 1.2-10.7 Platelet count [id number]) measured by fluorescence method. NRBC/100 WBC (test 0.3 See_Comment [Automat ed code = 1167987590) message] The system which generated this result transmitted reference range : 0.0 - 10.0 /100 WBCs. The refer ence range was not u sed to interpret th is result as normal/abnormal . NRBC x10^3 (test code 0.02 See_Comment [Auto mated = 1642381370) message] The s ystem which generated this result transmitted reference range : 10*3/?L. The reference range was not used to interpret this result as normal/abnormal . GRAN MAT (NEUT) % 60.5 % (test code = 770-8) IMM GRAN % (test code 1.70 % = 7846321856) LYMPH % (test code = 24.7 % 736-9) MONO % (test code = 8.7 % 5905-5) EOS % (test code = 3.9 % 713-8) BASO % (test code = 0.5 % 706-2) GRAN MAT x10^3(ANC) 3.84 10*3/uL 1.99-6.95 (test code = 1984963261) IMM GRAN x10^3 (test 0.11 10*3/uL 0.00-0.06 H code = 6658748461) LYMPH x10^3 (test code 1.57 10*3/uL 1.09-3.23 = 731-0) MONO x10^3 (test code 0.55 10*3/uL 0.36-1.02 = 742-7) EOS x10^3 (test code = 0.25 10*3/uL 0.06-0.53 711-2) BASO x10^3 (test code 0.03 10*3/uL 0.01-0.09 = 704-7) Lab Interpretation Abnormal (test code = 99217-2) [facility] WITH [id number] 12:15:07 Test Item Value Reference Range Interpretation [...] RDW-SD (test code = 51.5 fL 38.5-51.6 33201-2) RDW-CV (test code = 15.9 % 12.1-15.4 H 788-0) PLT (test code = 115 See_Comment L [Automated 777-3) message] The sy stem which generated this result transmitted reference range : 150 - 328 10*3/ ?L. The reference r mitra was not used to interpret this result as normal/abnormal . MPV (test code = 9.9 fL 9.8-13.0 86282-6) IPF % (test code = 2.9 % 1.2-10.7 Platelet count [id number]) measured by fluorescence method. NRBC/100 WBC (test 0.3 See_Comment [Automat ed code = 8865008537) message] The system which generated this result transmitted reference range : 0.0 - 10.0 /100 WBCs. The refer ence range was not u sed to interpret th is result as normal/abnormal . NRBC x10^3 (test code 0.02 See_Comment [Auto mated = 8713047639) message] The s ystem which generated this result transmitted reference range : 10*3/?L. The reference range was not used to interpret this result as normal/abnormal . GRAN MAT (NEUT) % 60.5 % (test code = 770-8) IMM GRAN % (test code 1.70 % = 9726043123) LYMPH % (test code = 24.7 % 736-9) MONO % (test code = 8.7 % 5905-5) EOS % (test code = 3.9 % 713-8) BASO % (test code = 0.5 % 706-2) GRAN MAT x10^3(ANC) 3.84 10*3/uL 1.99-6.95 (test code = 9517891007) IMM GRAN x10^3 (test 0.11 10*3/uL 0.00-0.06 H code = 0707202966) LYMPH x10^3 (test code 1.57 10*3/uL 1.09-3.23 = 731-0) MONO x10^3 (test code 0.55 10*3/uL 0.36-1.02 = 742-7) EOS x10^3 (test code = 0.25 10*3/uL 0.06-0.53 711-2) BASO x10^3 (test code 0.03 10*3/uL 0.01-0.09 = 704-7) Lab Interpretation Abnormal (test code = 22111-3) [facility] Test Item Value Reference Range Interpretation Comments MAGNESIUM (test code = 7779233101) 2.4 mg/dL 1.7-2.4 Lab Interpretation (test code = Normal 88002-3) [facility]01 Test Item Value Reference Range Interpretation Comments PHOSPHORUS (test code = 4508372725) 4.1 mg/dL 2.5-5.0 Lab Interpretation (test code = Normal 64013-9) [facility] (NA, K, CL, CO2, GLUCOSE, BUN, CREATININE, CA)2022-06-05 11:43:01 Test Item Value Reference Range Interpretation Comments NA (test code = 137 mmol/L 135-145 9619624264) K (test code = 3.8 mmol/L 3.5-5.0 2528566895) CL (test code = 105 mmol/L 98-108 9541350257) CO2 TOTAL (test code = 28 mmol/L 23-31 6451033750) AGAP (test code = 4 2-16 6845855349) BUN (test code = 17 mg/dL 7-23 3467331749) GLUCOSE (test code = 86 mg/dL 70-110 8693133108) CREATININE (test code = 1.06 mg/dL 0.60-1.25 7626320730) CALCIUM (test code = 8.4 mg/dL 8.6-10.6 L 2935245603) eGFR (test code = 71.5 mL/min/1.73m2 9928047859) DEWAYNE (test code = DEWAYNE) Association of [...] tests). Lab Interpretation Abnormal (test code = 83390-3) [facility] 11:[facility]:01 Test Item Value Reference Range Interpretation Comments MAGNESIUM (test code = 8210556620) 2.4 mg/dL 1.7-2.4 Lab Interpretation (test code = Normal 29373-7) [facility] 11:43:01 Test Item Value Reference Range Interpretation Comments PHOSPHORUS (test code = 7529351958) 4.1 mg/dL 2.5-5.0 Lab Interpretation (test code = Normal 55518-2) [facility] (NA, K, CL, CO2, GLUCOSE, BUN, CREATININE, CA)2022-06-05 11:43:01 Test Item Value Reference Range Interpretation Comments NA (test code = 137 mmol/L 135-145 7530527740) K (test code = 3.8 mmol/L 3.5-5.0 5584184561) CL (test code = 105 mmol/L 98-108 4079939115) CO2 TOTAL (test code = 28 mmol/L 23-31 0333768205) AGAP (test code = 4 2-16 6528816035) BUN (test code = 17 mg/dL 7-23 6574960507) GLUCOSE (test code = 86 mg/dL 70-110 4104758785) CREATININE (test code = 1.06 mg/dL 0.60-1.25 1177247616) CALCIUM (test code = 8.4 mg/dL 8.6-10.6 L 3034950635) eGFR (test code = 71.5 mL/min/1.73m2 1001467988) DEWAYNE (test code = DEWAYNE) Association of [...] tests). Lab Interpretation Abnormal (test code = 29973-4) [facility] (ALB,T.PRO,BILI T,BU/BC,ALT,AST,ALK PHOS)2022-06-04 08:25:57 Test Item Value Reference Range Interpretation Comments TOTAL BILI (test code = 9275945619) 0.7 mg/dL 0.1-1.1 BILI UNCON (test code = 1890035165) 0.3 mg/dL 0.1-1.1 BILI CONJ (test code = 0502758344) 0.0 mg/dL 0.0-0.3 T PROTEIN (test code = 4245228874) 6.4 g/dL 6.3-8.2 ALBUMIN (test code = 3063830138) 3.7 g/dL 3.5-5.0 ALK PHOS (test code = 5948221448) 105 U/L 34-122 ALTv (test code = 1742-6) 71 U/L 5-50 H AST(SGOT) (test code = 8159904881) 51 U/L 13-40 H Lab Interpretation (test code = Abnormal 36774-2) [facility]14608[facility] (ALB,T.PRO,BILI T,BU/BC,ALT,AST,ALK PHOS)2022-06-04 08:25:57 Test Item Value Reference Range Interpretation Comments TOTAL BILI (test code = 8759764448) 0.7 mg/dL 0.1-1.1 BILI UNCON (test code = 5829260069) 0.3 mg/dL 0.1-1.1 BILI CONJ (test code = 1562877304) 0.0 mg/dL 0.0-0.3 T PROTEIN (test code = 6504606423) 6.4 g/dL 6.3-8.2 ALBUMIN (test code = 4118644642) 3.7 g/dL 3.5-5.0 ALK PHOS (test code = 9846792313) 105 U/L 34-122 ALTv (test code = 1742-6) 71 U/L 5-50 H AST(SGOT) (test code = 3384880736) 51 U/L 13-40 H Lab Interpretation (test code = Abnormal 88216-2) [facility] [id number] 06:14:08 Test Item Value Reference Range Interpretation Comments TROPONIN I (test code = 0.027 ng/mL <=0.034 1066780148) DEWAYNE (test code = DEWAYNE) Reference (Normal) [...] biotin. Lab Interpretation Normal (test code = 01446-3) [facility] [id number] 06:14:08 Test Item Value Reference Range Interpretation Comments TROPONIN I (test code = 0.027 ng/mL <=0.034 5935288908) DEWAYNE (test code = DEWAYNE) Reference (Normal) [...] biotin. Lab Interpretation Normal (test code = 47238-8) [facility] WITH [id number] 05:33:25 Test Item Value Reference Range Interpretation Comments WBC (test code = 9.78 See_Comment [Automated 4490-2) message] The sy stem which generated this result transmitted reference range : 4.20 - 10.70 10*3/?L. The reference range was not used to interpret this result as normal/abnormal . RBC (test code = 2.85 See_Comment L [Automated 950-8) message] The sy [...] RDW-SD (test code = 50.4 fL 38.5-51.6 85836-4) RDW-CV (test code = 15.9 % 12.1-15.4 H 788-0) PLT (test code = 121 See_Comment L [Automated 777-3) message] The sy stem which generated this result transmitted reference range : 150 - 328 10*3/ ?L. The reference r mitra was not used to interpret this result as normal/abnormal . MPV (test code = 8.7 fL 9.8-13.0 L 21957-3) IPF % (test code = 2.3 % 1.2-10.7 Platelet count 7657059481) measured by fluorescence method. NRBC/100 WBC (test 0.6 See_Comment [Automat ed code = 1480936965) message] The system which generated this result transmitted reference range : 0.0 - 10.0 /100 WBCs. The refer ence range was not u sed to interpret th is result as normal/abnormal . NRBC x10^3 (test code 0.06 See_Comment [Auto mated = 8040867585) message] The s ystem which generated this result transmitted reference range : 10*3/?L. The reference range was not used to interpret this result as normal/abnormal . GRAN MAT (NEUT) % 80.9 % (test code = 770-8) IMM GRAN % (test code 4.80 % = 4726974074) LYMPH % (test code = 8.6 % 736-9) MONO % (test code = 5.6 % 5905-5) EOS % (test code = 0.0 % 713-8) BASO % (test code = 0.1 % 706-2) GRAN MAT x10^3(ANC) 7.91 10*3/uL 1.99-6.95 H (test code = 6104621822) IMM GRAN x10^3 (test 0.47 10*3/uL 0.00-0.06 H code = 3479206365) LYMPH x10^3 (test code 0.84 10*3/uL 1.09-3.23 L = 731-0) MONO x10^3 (test code 0.55 10*3/uL 0.36-1.02 = 742-7) EOS x10^3 (test code = 0.06-0.53 L 711-2) BASO x10^3 (test code 0.01-0.09 = 704-7) Lab Interpretation Abnormal (test code = 27078-5) [facility] WITH [id number] 05:33:25 Test Item Value Reference Range Interpretation [...] RDW-SD (test code = 50.4 fL 38.5-51.6 31983-1) RDW-CV (test code = 15.9 % 12.1-15.4 H 788-0) PLT (test code = 121 See_Comment L [Automated 777-3) message] The sy stem which generated this result transmitted reference range : 150 - 328 10*3/ ?L. The reference r mitra was not used to interpret this result as normal/abnormal . MPV (test code = 8.7 fL 9.8-13.0 L 35243-9) IPF % (test code = 2.3 % 1.2-10.7 Platelet count 0049960742) measured by fluorescence method. NRBC/100 WBC (test 0.6 See_Comment [Automat ed code = 3347671188) message] The system which generated this result transmitted reference range : 0.0 - 10.0 /100 WBCs. The refer ence range was not u sed to interpret th is result as normal/abnormal . NRBC x10^3 (test code 0.06 See_Comment [Auto mated = 3618461331) message] The s ystem which generated this result transmitted reference range : 10*3/?L. The reference range was not used to interpret this result as normal/abnormal . GRAN MAT (NEUT) % 80.9 % (test code = 770-8) IMM GRAN % (test code 4.80 % = 0415005660) LYMPH % (test code = 8.6 % 736-9) MONO % (test code = 5.6 % 5905-5) EOS % (test code = 0.0 % 713-8) BASO % (test code = 0.1 % 706-2) GRAN MAT x10^3(ANC) 7.91 10*3/uL 1.99-6.95 H (test code = 8644806803) IMM GRAN x10^3 (test 0.47 10*3/uL 0.00-0.06 H code = 7787757428) LYMPH x10^3 (test code 0.84 10*3/uL 1.09-3.23 L = 731-0) MONO x10^3 (test code 0.55 10*3/uL 0.36-1.02 = 742-7) EOS x10^3 (test code = 0.06-0.53 L 711-2) BASO x10^3 (test code 0.01-0.09 = 704-7) Lab Interpretation Abnormal (test code = 20753-9) [facility] METABOLIC PANEL (NA, K, CL, CO2, GLUCOSE, BUN, CREATININE, CA)2022-06-04 05:32:04 Test Item Value Reference Range Interpretation Comments NA (test code = 136 mmol/L 135-145 5793382334) K (test code = 4.1 mmol/L 3.5-5.0 3584337773) CL (test code = 104 mmol/L 98-108 8793643070) CO2 TOTAL (test code = 25 mmol/L 23-31 0845109622) AGAP (test code = 7 2-16 3238390820) BUN (test code = 19 mg/dL 7-23 7969723709) GLUCOSE (test code = 166 mg/dL 70-110 H 8423382875) CREATININE (test code = 1.00 mg/dL 0.60-1.25 2707691528) CALCIUM (test code = 8.8 mg/dL 8.6-10.6 2504480103) eGFR (test code = 76.5 mL/min/1.73m2 2355846115) DEWAYNE (test code = DEWAYNE) Association of [...] tests). Lab Interpretation Abnormal (test code = 43274-2) [facility] METABOLIC PANEL (NA, K, CL, CO2, GLUCOSE, BUN, CREATININE, CA)2022-06-04 05:32:04 Test Item Value Reference Range Interpretation Comments NA (test code = 136 mmol/L 135-145 6569599033) K (test code = 4.1 mmol/L 3.5-5.0 1631480557) CL (test code = 104 mmol/L 98-108 0880666141) CO2 TOTAL (test code = 25 mmol/L 23-31 3644370220) AGAP (test code = 7 2-16 7439240029) BUN (test code = 19 mg/dL 7-23 6449148343) GLUCOSE (test code = 166 mg/dL 70-110 H 4498849794) CREATININE (test code = 1.00 mg/dL 0.60-1.25 3212586659) CALCIUM (test code = 8.8 mg/dL 8.6-10.6 7802220283) eGFR (test code = 76.5 mL/min/1.73m2 0087496168) DEWAYNE (test code = DEWAYNE) Association of [...] tests). Lab Interpretation Abnormal (test code = 99297-9) [facility] D[facility]2022-06-04 05:24:43 Test Item Value Reference Range Interpretation Comments APTT Patient (test code 105 See_Comment [Au tomated message] = 3173-2) The system FRAMED generated this result transmitted ref erence range: 26 - 36 Seconds. The reference range was not used to int erpret this result as normal/abnormal . Lab Interpretation (test Abnormal code = 78983-2) [facility] Drip[facility]2022-06-04 05:24:43 Test Item Value Reference Range Interpretation Comments APTT Patient (test code 105 See_Comment [Au tomated message] = 3173-2) The system FRAMED generated this result transmitted ref erence range: 26 - 36 Seconds. The reference range was not used to int erpret this result as normal/abnormal . Lab Interpretation (test Abnormal code = 67476-3) [facility]COOX+NA+K+GLU+CA2+2022-06-04 02:57:07 Test Item Value Reference Range Interpretation Comments PH (test code = 2) 7.31 7.35-7.45 L PCO2 (test code = 42 See_Comment [Automate d message] 7277103055) The system FRAMED generated this result transmit elizabeth reference range : 35 - 45 mmHg. The reference range was not used to interpret this result as normal/abnormal . PO2 (test code = 144 See_Comment H [Automated message] 5199148473) The system FRAMED generated this result transmit elizabeth reference range : 80 - 100 mmHg. The reference range was not used to interpret this result as normal/abnormal . HCO3 (test code = 21 See_Comment L [Automate d message] 1958802760) The system FRAMED generated this result transmit elizabeth reference range : 22 - 26 mEq/L. The reference range was not used to interpret this result as normal/abnormal . BE (test code = -4.8 See_Comment L [Automated message] 6320683387) The system FRAMED generated this result transmit elizabeth reference range : -3.0 - 3.0 mEq/ L. The reference r mitra was not used to interpret this result as normal/abnormal . THB (test code = 9.6 g/dL 13.5-18.0 L 4046550220) %O2HB (test code = 98.4 % 94.0-99.0 1066307399) %COHB ART (test code = 0.1 % 0.0-1.5 0855656447) %METHB ART (test code = 0.1 % 0.4-1.5 L 2800758446) VOL%O2 ART (test code = 13.6 % 15.0-23.0 L QUES 9677320814) NA (test code = 133 mmol/L 135-145 L 8728674819) K+ (test code = 4.6 mmol/L 3.5-5.0 6180852443) AC CA IONZ (test code = 4.40 mg/dL 4.50-5.30 L 9765961214) GLUCOSE (test code = 148 mg/dL 70-110 H 6977243734) Lab Interpretation Abnormal (test code = 24117-2) [facility]+NA+K+GLU+CA2+2022-06-04 02:57:07 Test Item Value Reference Range Interpretation Comments PH (test code = 2) 7.31 7.35-7.45 L PCO2 (test code = 42 See_Comment [Automate d message] 3380575278) The system FRAMED generated this result transmit elizabeth reference range : 35 - 45 mmHg. The reference range was not used to interpret this result as normal/abnormal . PO2 (test code = 144 See_Comment H [Automated message] 3272923203) The system FRAMED generated this result transmit elizabeth reference range : 80 - 100 mmHg. The reference range was not used to interpret this result as normal/abnormal . HCO3 (test code = 21 See_Comment L [Automate d message] 8975728609) The system FRAMED generated this result transmit elizabeth reference range : 22 - 26 mEq/L. The reference range was not used to interpret this result as normal/abnormal . BE (test code = -4.8 See_Comment L [Automated message] 5963183662) The system FRAMED generated this result transmit elizabeth reference range : -3.0 - 3.0 mEq/ L. The reference r mitra was not used to interpret this result as normal/abnormal . THB (test code = 9.6 g/dL 13.5-18.0 L 2862239548) %O2HB (test code = 98.4 % 94.0-99.0 9271637989) %COHB ART (test code = 0.1 % 0.0-1.5 9541889974) %METHB ART (test code = 0.1 % 0.4-1.5 L 9880706685) VOL%O2 ART (test code = 13.6 % 15.0-23.0 L QUES 4505930797) NA (test code = 133 mmol/L 135-145 L 4960521104) K+ (test code = 4.6 mmol/L 3.5-5.0 1636831419) AC CA IONZ (test code = 4.40 mg/dL 4.50-5.30 L 3167061111) GLUCOSE (test code = 148 mg/dL 70-110 H 9732300467) Lab Interpretation Abnormal (test code = 23214-6) [facility]+NA+K+GLU+CA2+2022-06-04 02:55:52 Test Item Value Reference Range Interpretation Comments PH (test code = 2) 7.31 7.35-7.45 L PCO2 (test code = 38 See_Comment [Automate d message] 4270954507) The system FRAMED generated this result transmit elizabeth reference range : 35 - 45 mmHg. The reference range was not used to interpret this result as normal/abnormal . PO2 (test code = 180 See_Comment H [Automated message] 2613384229) The system FRAMED generated this result transmit elizabeth reference range : 80 - 100 mmHg. The reference range was not used to interpret this result as normal/abnormal . HCO3 (test code = 19 See_Comment L [Automate d message] 7720395441) The system FRAMED generated this result transmit elizabeth reference range : 22 - 26 mEq/L. The reference range was not used to interpret this result as normal/abnormal . BE (test code = -7.2 See_Comment L [Automated message] 8805948155) The system FRAMED generated this result transmit elizabeth reference range : -3.0 - 3.0 mEq/ L. The reference r mitra was not used to interpret this result as normal/abnormal . THB (test code = 8.4 g/dL 13.5-18.0 L 0084039200) %O2HB (test code = 98.1 % 94.0-99.0 1845684765) %COHB ART (test code = 0.4 % 0.0-1.5 0240940193) %METHB ART (test code = 0.3 % 0.4-1.5 L 6174112786) VOL%O2 ART (test code = 12.0 % 15.0-23.0 L QUES 7060427742) NA (test code = 135 mmol/L 135-145 4501084350) K+ (test code = 4.1 mmol/L 3.5-5.0 3467453576) AC CA IONZ (test code = 4.90 mg/dL 4.50-5.30 4807349678) GLUCOSE (test code = 128 mg/dL 70-110 H 0575904603) Lab Interpretation Abnormal (test code = 58101-9) [facility]+NA+K+GLU+CA2+2022-06-04 02:55:52 Test Item Value Reference Range Interpretation Comments PH (test code = 2) 7.31 7.35-7.45 L PCO2 (test code = 38 See_Comment [Automate d message] 9491703887) The system FRAMED generated this result transmit elizabeth reference range : 35 - 45 mmHg. The reference range was not used to interpret this result as normal/abnormal . PO2 (test code = 180 See_Comment H [Automated message] 6335695246) The system FRAMED generated this result transmit elizabeth reference range : 80 - 100 mmHg. The reference range was not used to interpret this result as normal/abnormal . HCO3 (test code = 19 See_Comment L [Automate d message] 5906609089) The system FRAMED generated this result transmit elizabeth reference range : 22 - 26 mEq/L. The reference range was not used to interpret this result as normal/abnormal . BE (test code = -7.2 See_Comment L [Automated message] 2134875479) The system FRAMED generated this result transmit elizabeth reference range : -3.0 - 3.0 mEq/ L. The reference r mitra was not used to interpret this result as normal/abnormal . THB (test code = 8.4 g/dL 13.5-18.0 L 9240273184) %O2HB (test code = 98.1 % 94.0-99.0 1596555896) %COHB ART (test code = 0.4 % 0.0-1.5 5234787507) %METHB ART (test code = 0.3 % 0.4-1.5 L 2918059701) VOL%O2 ART (test code = 12.0 % 15.0-23.0 L QUES 5973376603) NA (test code = 135 mmol/L 135-145 6613184168) K+ (test code = 4.1 mmol/L 3.5-5.0 1313200927) AC CA IONZ (test code = 4.90 mg/dL 4.50-5.30 6816519433) GLUCOSE (test code = 128 mg/dL 70-110 H 2139277270) Lab Interpretation Abnormal (test code = 25013-6) [facility] [id number] 13:22:00 Test Item Value Reference Range Interpretation Comments ABO & RH (test code = 20) AB POSITIVE IAT (test code = 1185) Negative [facility] ON[facility] [id number] 13:22:00 Test Item Value Reference Range Interpretation Comments ABO & RH (test code = 20) AB POSITIVE IAT (test code = 1185) Negative [facility]CB WITH [id number] 11:35:29 Test Item Value Reference Range Interpretation Comments WBC (test code = 11.02 See_Comment H [Automated 3690-2) message] The sy stem which [...] RDW-SD (test code = 50.8 fL 38.5-51.6 30916-2) RDW-CV (test code = 15.9 % 12.1-15.4 H 788-0) PLT (test code = 265 See_Comment [Automated 777-3) message] The sy stem which generated this result transmitted reference range : 150 - 328 10*3/ ?L. The reference r mitra was not used to interpret this result as normal/abnormal . MPV (test code = 9.0 fL 9.8-13.0 L 53421-7) NRBC/100 WBC (test 0.5 See_Comment [Automat ed code = 3971515911) message] The system which generated this result transmitted reference range : 0.0 - 10.0 /100 WBCs. The refer ence range was not u sed to interpret th is result as normal/abnormal . NRBC x10^3 (test code 0.06 See_Comment [Auto mated = 1107089892) message] The s ystem which generated this result transmitted reference range : 10*3/?L. The reference range was not used to interpret this result as normal/abnormal . GRAN MAT (NEUT) % 67.4 % (test code = 770-8) IMM GRAN % (test code 5.90 % = 9964635209) LYMPH % (test code = 13.6 % 736-9) MONO % (test code = 8.5 % 5905-5) EOS % (test code = 4.1 % 713-8) BASO % (test code = 0.5 % 706-2) GRAN MAT x10^3(ANC) 7.42 10*3/uL 1.99-6.95 H (test code = 0801189925) IMM GRAN x10^3 (test 0.65 10*3/uL 0.00-0.06 H code = 8076678858) LYMPH x10^3 (test code 1.50 10*3/uL 1.09-3.23 = 731-0) MONO x10^3 (test code 0.94 10*3/uL 0.36-1.02 = 742-7) EOS x10^3 (test code = 0.45 10*3/uL 0.06-0.53 711-2) BASO x10^3 (test code 0.06 10*3/uL 0.01-0.09 = 704-7) Lab Interpretation Abnormal (test code = 87753-5) [facility] WITH [id number] 11:35:29 Test Item Value Reference Range Interpretation [...] RDW-SD (test code = 50.8 fL 38.5-51.6 40076-1) RDW-CV (test code = 15.9 % 12.1-15.4 H 788-0) PLT (test code = 265 See_Comment [Automated 777-3) message] The sy stem which generated this result transmitted reference range : 150 - 328 10*3/ ?L. The reference r mitra was not used to interpret this result as normal/abnormal . MPV (test code = 9.0 fL 9.8-13.0 L 81178-6) NRBC/100 WBC (test 0.5 See_Comment [Automat ed code = 4459650011) message] The system which generated this result transmitted reference range : 0.0 - 10.0 /100 WBCs. The refer ence range was not u sed to interpret th is result as normal/abnormal . NRBC x10^3 (test code 0.06 See_Comment [Auto mated = 1528391881) message] The s ystem which generated this result transmitted reference range : 10*3/?L. The reference range was not used to interpret this result as normal/abnormal . GRAN MAT (NEUT) % 67.4 % (test code = 770-8) IMM GRAN % (test code 5.90 % = 6684449091) LYMPH % (test code = 13.6 % 736-9) MONO % (test code = 8.5 % 5905-5) EOS % (test code = 4.1 % 713-8) BASO % (test code = 0.5 % 706-2) GRAN MAT x10^3(ANC) 7.42 10*3/uL 1.99-6.95 H (test code = 3155658582) IMM GRAN x10^3 (test 0.65 10*3/uL 0.00-0.06 H code = 4302427307) LYMPH x10^3 (test code 1.50 10*3/uL 1.09-3.23 = 731-0) MONO x10^3 (test code 0.94 10*3/uL 0.36-1.02 = 742-7) EOS x10^3 (test code = 0.45 10*3/uL 0.06-0.53 711-2) BASO x10^3 (test code 0.06 10*3/uL 0.01-0.09 = 704-7) Lab Interpretation Abnormal (test code = 32988-3) [facility] 11:30:46 Test Item Value Reference Range Interpretation Comments MAGNESIUM (test code = 3678659285) 2.4 mg/dL 1.7-2.4 Lab Interpretation (test code = Normal 27984-3) [facility]2023-[facility]-21 11:30:46 Test Item Value Reference Range Interpretation Comments PHOSPHORUS (test code = 4672335398) 4.8 mg/dL 2.5-5.0 Lab Interpretation (test code = Normal 32979-1) [facility] METABOLIC PANEL (NA, K, CL, CO2, GLUCOSE, BUN, CREATININE, CA)2022-06-03 11:30:46 Test Item Value Reference Range Interpretation Comments NA (test code = 136 mmol/L 135-145 1452699713) K (test code = 4.2 mmol/L 3.5-5.0 7778500650) CL (test code = 104 mmol/L 98-108 2184835862) CO2 TOTAL (test code 26 mmol/L 23-31 = 0090806922) AGAP (test code = 6 2-16 7727809310) BUN (test code = 18 mg/dL 7-23 1869973385) GLUCOSE (test code = 103 mg/dL 70-110 2045585742) CREATININE (test code 1.08 mg/dL 0.60-1.25 = 0863848597) CALCIUM (test code = 8.7 mg/dL 8.6-10.6 0680333361) eGFR (test code = 70.0 mL/min/1.73m2 2190393927) DEWAYNE (test code = DEWAYNE) Association of [...] or urine or abnormalities in imaging tests). [facility] 11:30:46 Test Item Value Reference Range Interpretation Comments MAGNESIUM (test code = 1011894110) 2.4 mg/dL 1.7-2.4 Lab Interpretation (test code = Normal 27642-9) [facility]2023-[facility]-21 11:30:46 Test Item Value Reference Range Interpretation Comments PHOSPHORUS (test code = 1553709550) 4.8 mg/dL 2.5-5.0 Lab Interpretation (test code = Normal 37473-6) [facility] (NA, K, CL, CO2, GLUCOSE, BUN, CREATININE, CA)2022-06-03 11:30:46 Test Item Value Reference Range Interpretation Comments NA (test code = 136 mmol/L 135-145 1578340659) K (test code = 4.2 mmol/L 3.5-5.0 6294547165) CL (test code = 104 mmol/L 98-108 2207568467) CO2 TOTAL (test code 26 mmol/L 23-31 = 0587482844) AGAP (test code = 6 2-16 7515192694) BUN (test code = 18 mg/dL 7-23 0147875356) GLUCOSE (test code = 103 mg/dL 70-110 2910816062) CREATININE (test code 1.08 mg/dL 0.60-1.25 = 1561812703) CALCIUM (test code = 8.7 mg/dL 8.6-10.6 5304914897) eGFR (test code = 70.0 mL/min/1.73m2 4622522036) DEWAYNE (test code = DEWAYNE) Association of [...] or urine or abnormalities in imaging tests). [facility] Drip[facility]2022-06-03 11:15:05 Test Item Value Reference Range Interpretation Comments APTT Patient (test code 52 See_Comment H [Au tomated message] = 3173-2) The system FRAMED generated this result transmitted ref erence range: 26 - 36 Seconds. The reference range was not used to int erpret this result as normal/abnormal . Lab Interpretation (test Abnormal code = 00361-0) [facility] D[facility]22-06-03 11:15:05 Test Item Value Reference Range Interpretation Comments APTT Patient (test code 52 See_Comment H [Au tomated message] = 3173-2) The system FRAMED generated this result transmitted ref erence range: 26 - 36 Seconds. The reference range was not used to int erpret this result as normal/abnormal . Lab Interpretation (test Abnormal code = 82755-0) [facility] METABOLIC PANEL (NA, K, CL, CO2, GLUCOSE, BUN, CREATININE, CA)2022-06-02 13:56:04 Test Item Value Reference Range Interpretation Comments NA (test code = 137 mmol/L 135-145 2551444054) K (test code = 4.4 mmol/L 3.5-5.0 5101333924) CL (test code = 105 mmol/L 98-108 6898917024) CO2 TOTAL (test code 27 mmol/L 23-31 = 2544903136) AGAP (test code = 5 2-16 5058874153) BUN (test code = 19 mg/dL 7-23 6068606576) GLUCOSE (test code = 92 mg/dL 70-110 3956786118) CREATININE (test code 0.96 mg/dL 0.60-1.25 = 8863867048) CALCIUM (test code = 8.7 mg/dL 8.6-10.6 8216609775) eGFR (test code = 80.2 mL/min/1.73m2 3577105166) DEWAYNE (test code = DEWAYNE) Association of [...] or urine or abnormalities in imaging tests). [facility] (NA, K, CL, CO2, GLUCOSE, BUN, CREATININE, CA)2022-06-02 13:56:04 Test Item Value Reference Range Interpretation Comments NA (test code = 137 mmol/L 135-145 [id number]) K (test code = 4.4 mmol/L 3.5-5.0 4272789113) CL (test code = 105 mmol/L 98-108 3777656258) CO2 TOTAL (test code 27 mmol/L 23-31 = 4735692922) AGAP (test code = 5 2-16 2865264784) BUN (test code = 19 mg/dL 7-23 5825874639) GLUCOSE (test code = 92 mg/dL 70-110 0531083251) CREATININE (test code 0.96 mg/dL 0.60-1.25 = 6932683336) CALCIUM (test code = 8.7 mg/dL 8.6-10.6 2112223860) eGFR (test code = 80.2 mL/min/1.73m2 7792798720) DEWAYNE (test code = DEWAYNE) Association of [...] in imaging tests). [facility] WITH [id number] 11:30:12 Test Item Value Reference Range Interpretation [...] RDW-SD (test code = 50.1 fL 38.5-51.6 47261-2) RDW-CV (test code = 15.8 % 12.1-15.4 H 788-0) PLT (test code = 239 See_Comment [Automated 777-3) message] The sy stem which generated this result transmitted reference range : 150 - 328 10*3/ ?L. The reference r mitra was not used to interpret this result as normal/abnormal . MPV (test code = 9.1 fL 9.8-13.0 L 48113-3) NRBC/100 WBC (test 0.8 See_Comment [Automat ed code = 8049910720) message] The system which generated this result transmitted reference range : 0.0 - 10.0 /100 WBCs. The refer ence range was not u sed to interpret th is result as normal/abnormal . NRBC x10^3 (test code 0.07 See_Comment [Auto mated = 2761454675) message] The s ystem which generated this result transmitted reference range : 10*3/?L. The reference range was not used to interpret this result as normal/abnormal . GRAN MAT (NEUT) % 56.4 % (test code = 770-8) IMM GRAN % (test code 6.70 % = 7308574075) LYMPH % (test code = 23.9 % 736-9) MONO % (test code = 7.3 % 5905-5) EOS % (test code = 4.9 % 713-8) BASO % (test code = 0.8 % 706-2) GRAN MAT x10^3(ANC) 4.93 10*3/uL 1.99-6.95 (test code = 1087176746) IMM GRAN x10^3 (test 0.59 10*3/uL 0.00-0.06 H code = 8653552218) LYMPH x10^3 (test code 2.09 10*3/uL 1.09-3.23 = 731-0) MONO x10^3 (test code 0.64 10*3/uL 0.36-1.02 = 742-7) EOS x10^3 (test code = 0.43 10*3/uL 0.06-0.53 711-2) BASO x10^3 (test code 0.07 10*3/uL 0.01-0.09 = 704-7) Lab Interpretation Abnormal (test code = 07380-6) [facility] WITH [id number] 11:30:12 Test Item Value Reference Range Interpretation Comments WBC (test code = 8.75 See_Comment [Automated 1990-2) message] The sy stem which generated this result transmitted reference range : 4.20 - 10.70 10*3/?L. The reference range was not used to interpret this result as normal/abnormal . RBC (test code = 3.25 See_Comment L [Automated 779-8) message] The sy [...] RDW-SD (test code = 50.1 fL 38.5-51.6 95420-1) RDW-CV (test code = 15.8 % 12.1-15.4 H 788-0) PLT (test code = 239 See_Comment [Automated 777-3) message] The sy stem which generated this result transmitted reference range : 150 - 328 10*3/ ?L. The reference r mitra was not used to interpret this result as normal/abnormal . MPV (test code = 9.1 fL 9.8-13.0 L 04453-7) NRBC/100 WBC (test 0.8 See_Comment [Automat ed code = 4447868156) message] The system which generated this result transmitted reference range : 0.0 - 10.0 /100 WBCs. The refer ence range was not u sed to interpret th is result as normal/abnormal . NRBC x10^3 (test code 0.07 See_Comment [Auto mated = 9610430110) message] The s ystem which generated this result transmitted reference range : 10*3/?L. The reference range was not used to interpret this result as normal/abnormal . GRAN MAT (NEUT) % 56.4 % (test code = 770-8) IMM GRAN % (test code 6.70 % = 3181853579) LYMPH % (test code = 23.9 % 736-9) MONO % (test code = 7.3 % 5905-5) EOS % (test code = 4.9 % 713-8) BASO % (test code = 0.8 % 706-2) GRAN MAT x10^3(ANC) 4.93 10*3/uL 1.99-6.95 (test code = 0453714202) IMM GRAN x10^3 (test 0.59 10*3/uL 0.00-0.06 H code = 5868372603) LYMPH x10^3 (test code 2.09 10*3/uL 1.09-3.23 = 731-0) MONO x10^3 (test code 0.64 10*3/uL 0.36-1.02 = 742-7) EOS x10^3 (test code = 0.43 10*3/uL 0.06-0.53 711-2) BASO x10^3 (test code 0.07 10*3/uL 0.01-0.09 = 704-7) Lab Interpretation Abnormal (test code = 17133-2) [facility] Test Item Value Reference Range Interpretation Comments MAGNESIUM (test code = 8955513148) 2.3 mg/dL 1.7-2.4 Lab Interpretation (test code = Normal 75601-6) [facility] 11:16:48 Test Item Value Reference Range Interpretation Comments PHOSPHORUS (test code = 7302790078) 4.8 mg/dL 2.5-5.0 Lab Interpretation (test code = Normal 30527-5) [facility] 11:16:48 Test Item Value Reference Range Interpretation Comments MAGNESIUM (test code = 8042980809) 2.3 mg/dL 1.7-2.4 Lab Interpretation (test code = Normal 46259-2) [facility] 11:16:48 Test Item Value Reference Range Interpretation Comments PHOSPHORUS (test code = 9302577507) 4.8 mg/dL 2.5-5.0 Lab Interpretation (test code = Normal 15998-3) [facility] WITH [id number] 11:58:20 Test Item Value Reference Range Interpretation Comments WBC (test code = 9.20 See_Comment [Automated 4490-2) message] The sy stem which generated this result transmitted reference range : 4.20 - 10.70 10*3/?L. The reference range was not used to interpret this result as normal/abnormal . RBC (test code = 3.18 See_Comment L [Automated 083-8) message] The sy stem which generated this [...] RDW-SD (test code = 48.3 fL 38.5-51.6 92740-0) RDW-CV (test code = 15.2 % 12.1-15.4 788-0) PLT (test code = 181 See_Comment [Automated 777-3) message] The sy stem which generated this result transmitted reference range : 150 - 328 10*3/ ?L. The reference r mitra was not used to interpret this result as normal/abnormal . MPV (test code = 9.4 fL 9.8-13.0 L 54177-1) NRBC/100 WBC (test 0.3 See_Comment [Automat ed code = 8883304312) message] The system which generated this result transmitted reference range : 0.0 - 10.0 /100 WBCs. The refer ence range was not u sed to interpret th is result as normal/abnormal . NRBC x10^3 (test code 0.03 See_Comment [Auto mated = 9110840468) message] The s ystem which generated this result transmitted reference range : 10*3/?L. The reference range was not used to interpret this result as normal/abnormal . GRAN MAT (NEUT) % 59.7 % (test code = 770-8) IMM GRAN % (test code 5.80 % = 2632111603) LYMPH % (test code = 21.3 % 736-9) MONO % (test code = 8.7 % 5905-5) EOS % (test code = 4.1 % 713-8) BASO % (test code = 0.4 % 706-2) GRAN MAT x10^3(ANC) 5.49 10*3/uL 1.99-6.95 (test code = 0475977124) IMM GRAN x10^3 (test 0.53 10*3/uL 0.00-0.06 H code = 3312220048) LYMPH x10^3 (test code 1.96 10*3/uL 1.09-3.23 = 731-0) MONO x10^3 (test code 0.80 10*3/uL 0.36-1.02 = 742-7) EOS x10^3 (test code = 0.38 10*3/uL 0.06-0.53 711-2) BASO x10^3 (test code 0.04 10*3/uL 0.01-0.09 = 704-7) Lab Interpretation Abnormal (test code = 36356-3) [facility] WITH [id number] 11:58:20 Test Item Value Reference Range Interpretation Comments WBC (test code = 9.20 See_Comment [Automated 3188-2) message] The sy stem which generated this result transmitted reference range : 4.20 - 10.70 10*3/?L. The reference range was not used to interpret this result as normal/abnormal . RBC (test code = 3.18 See_Comment L [Automated 109-8) message] The sy [...] RDW-SD (test code = 48.3 fL 38.5-51.6 19841-9) RDW-CV (test code = 15.2 % 12.1-15.4 788-0) PLT (test code = 181 See_Comment [Automated 467-3) message] The sy stem which generated this result transmitted reference range : 150 - 328 10*3/ ?L. The reference r mitra was not used to interpret this result as normal/abnormal . MPV (test code = 9.4 fL 9.8-13.0 L 49159-7) NRBC/100 WBC (test 0.3 See_Comment [Automat ed code = 0195940322) message] The system which generated this result transmitted reference range : 0.0 - 10.0 /100 WBCs. The refer ence range was not u sed to interpret th is result as normal/abnormal . NRBC x10^3 (test code 0.03 See_Comment [Auto mated = 6443026557) message] The s ystem which generated this result transmitted reference range : 10*3/?L. The reference range was not used to interpret this result as normal/abnormal . GRAN MAT (NEUT) % 59.7 % (test code = 770-8) IMM GRAN % (test code 5.80 % = 1951088568) LYMPH % (test code = 21.3 % 736-9) MONO % (test code = 8.7 % 5905-5) EOS % (test code = 4.1 % 713-8) BASO % (test code = 0.4 % 706-2) GRAN MAT x10^3(ANC) 5.49 10*3/uL 1.99-6.95 (test code = 4541081796) IMM GRAN x10^3 (test 0.53 10*3/uL 0.00-0.06 H code = 3729154331) LYMPH x10^3 (test code 1.96 10*3/uL 1.09-3.23 = 731-0) MONO x10^3 (test code 0.80 10*3/uL 0.36-1.02 = 742-7) EOS x10^3 (test code = 0.38 10*3/uL 0.06-0.53 711-2) BASO x10^3 (test code 0.04 10*3/uL 0.01-0.09 = 704-7) Lab Interpretation Abnormal (test code = 79311-8) [facility] Test Item Value Reference Range Interpretation Comments MAGNESIUM (test code = 8521634206) 2.3 mg/dL 1.7-2.4 Lab Interpretation (test code = Normal 35224-2) [facility] 11:41:55 Test Item Value Reference Range Interpretation Comments PHOSPHORUS (test code = 7622419022) 3.4 mg/dL 2.5-5.0 Lab Interpretation (test code = Normal 75244-1) [facility] (NA, K, CL, CO2, GLUCOSE, BUN, CREATININE, CA)2022-06-01 11:41:55 Test Item Value Reference Range Interpretation Comments NA (test code = 137 mmol/L 135-145 1857532506) K (test code = 4.1 mmol/L 3.5-5.0 5014218881) CL (test code = 105 mmol/L 98-108 4374758816) CO2 TOTAL (test code = 27 mmol/L 23-31 5741744552) AGAP (test code = 5 2-16 3083053955) BUN (test code = 17 mg/dL 7-23 6319682899) GLUCOSE (test code = 135 mg/dL 70-110 H 1544450212) CREATININE (test code = 0.84 mg/dL 0.60-1.25 9539391168) CALCIUM (test code = 8.4 mg/dL 8.6-10.6 L 2295878600) eGFR (test code = 93.5 mL/min/1.73m2 4659657797) DEWAYNE (test code = DEWAYNE) Association of [...] tests). Lab Interpretation Abnormal (test code = 58385-5) [facility] 11:41:55 Test Item Value Reference Range Interpretation Comments MAGNESIUM (test code = 8600590128) 2.3 mg/dL 1.7-2.4 Lab Interpretation (test code = Normal 44772-8) [facility] 11:41:55 Test Item Value Reference Range Interpretation Comments PHOSPHORUS (test code = 0098462131) 3.4 mg/dL 2.5-5.0 Lab Interpretation (test code = Normal 29712-2) [facility] (NA, K, CL, CO2, GLUCOSE, BUN, CREATININE, CA)2022-06-01 11:41:55 Test Item Value Reference Range Interpretation Comments NA (test code = 137 mmol/L 135-145 7844174051) K (test code = 4.1 mmol/L 3.5-5.0 5553917522) CL (test code = 105 mmol/L 98-108 6793051785) CO2 TOTAL (test code = 27 mmol/L 23-31 9907745496) AGAP (test code = 5 2-16 0204494401) BUN (test code = 17 mg/dL 7-23 1349887433) GLUCOSE (test code = 135 mg/dL 70-110 H 9788471640) CREATININE (test code = 0.84 mg/dL 0.60-1.25 3076130926) CALCIUM (test code = 8.4 mg/dL 8.6-10.6 L 3506904832) eGFR (test code = 93.5 mL/min/1.73m2 2426602356) DEWAYNE (test code = DEWAYNE) Association of [...] tests). Lab Interpretation Abnormal (test code = 78660-9) [facility] WITH [id number] 12:02:32 Test Item Value Reference Range Interpretation Comments WBC (test code = 9.82 See_Comment [Automated 0461-2) message] The sy stem which generated this result transmitted reference range : 4.20 - 10.70 10*3/?L. The reference range was not used to interpret this result as normal/abnormal . RBC (test code = 3.82 See_Comment L [Automated 202-3) message] The sy stem which generated this [...] RDW-SD (test code = 46.6 fL 38.5-51.6 68735-8) RDW-CV (test code = 14.9 % 12.1-15.4 788-0) PLT (test code = 154 See_Comment [Automated 777-3) message] The sy stem which generated this result transmitted reference range : 150 - 328 10*3/ ?L. The reference r mitra was not used to interpret this result as normal/abnormal . MPV (test code = 9.5 fL 9.8-13.0 L 23702-9) NRBC/100 WBC (test 0.2 See_Comment [Automat ed code = 3529774084) message] The system which generated this result transmitted reference range : 0.0 - 10.0 /100 WBCs. The refer ence range was not u sed to interpret th is result as normal/abnormal . NRBC x10^3 (test code 0.02 See_Comment [Auto mated = 3197343036) message] The s ystem which generated this result transmitted reference range : 10*3/?L. The reference range was not used to interpret this result as normal/abnormal . GRAN MAT (NEUT) % 80.7 % (test code = 770-8) IMM GRAN % (test code 4.50 % = 6576159317) LYMPH % (test code = 6.5 % 736-9) MONO % (test code = 7.3 % 5905-5) EOS % (test code = 0.6 % 713-8) BASO % (test code = 0.4 % 706-2) GRAN MAT x10^3(ANC) 7.92 10*3/uL 1.99-6.95 H (test code = 6180035701) IMM GRAN x10^3 (test 0.44 10*3/uL 0.00-0.06 H code = 5270186090) LYMPH x10^3 (test code 0.64 10*3/uL 1.09-3.23 L = 731-0) MONO x10^3 (test code 0.72 10*3/uL 0.36-1.02 = 742-7) EOS x10^3 (test code = 0.06 10*3/uL 0.06-0.53 711-2) BASO x10^3 (test code 0.04 10*3/uL 0.01-0.09 = 704-7) MEAGHAN CELLS (test code 2+ See_Comment A [Auto mated = 2655-9) message] The sy stem which generated this result transmitted reference range : (none). The reference range was not used to interpret this result as normal/abnormal . REACT LYMPHS (test Rare code = 1390053229) Lab Interpretation Abnormal (test code = 17912-3) [facility] WITH [id number] 12:02:32 Test Item Value Reference Range Interpretation Comments WBC (test code = 9.82 See_Comment [Automated 5990-2) message] The sy stem which generated this result transmitted reference range : 4.20 - 10.70 10*3/?L. The reference range was not used to interpret this result as normal/abnormal . RBC (test code = 3.82 See_Comment L [Automated 389-8) message] The sy stem which generated this [...] RDW-SD (test code = 46.6 fL 38.5-51.6 53066-6) RDW-CV (test code = 14.9 % 12.1-15.4 788-0) PLT (test code = 154 See_Comment [Automated 777-3) message] The sy stem which generated this result transmitted reference range : 150 - 328 10*3/ ?L. The reference r mitra was not used to interpret this result as normal/abnormal . MPV (test code = 9.5 fL 9.8-13.0 L 49872-7) NRBC/100 WBC (test 0.2 See_Comment [Automat ed code = 6707331899) message] The system which generated this result transmitted reference range : 0.0 - 10.0 /100 WBCs. The refer ence range was not u sed to interpret th is result as normal/abnormal . NRBC x10^3 (test code 0.02 See_Comment [Auto mated = 0744376375) message] The s ystem which generated this result transmitted reference range : 10*3/?L. The reference range was not used to interpret this result as normal/abnormal . GRAN MAT (NEUT) % 80.7 % (test code = 770-8) IMM GRAN % (test code 4.50 % = 4536495114) LYMPH % (test code = 6.5 % 736-9) MONO % (test code = 7.3 % 5905-5) EOS % (test code = 0.6 % 713-8) BASO % (test code = 0.4 % 706-2) GRAN MAT x10^3(ANC) 7.92 10*3/uL 1.99-6.95 H (test code = 9875628879) IMM GRAN x10^3 (test 0.44 10*3/uL 0.00-0.06 H code = 8510907804) LYMPH x10^3 (test code 0.64 10*3/uL 1.09-3.23 L = 731-0) MONO x10^3 (test code 0.72 10*3/uL 0.36-1.02 = 742-7) EOS x10^3 (test code = 0.06 10*3/uL 0.06-0.53 711-2) BASO x10^3 (test code 0.04 10*3/uL 0.01-0.09 = 704-7) MEAGHAN CELLS (test code 2+ See_Comment A [Auto mated = 4881-9) message] The sy stem which generated this result transmitted reference range : (none). The reference range was not used to interpret this result as normal/abnormal . REACT LYMPHS (test Rare code = 7373116788) Lab Interpretation Abnormal (test code = 69039-9) [facility] WITH [id number] 12:02:32 Test Item Value Reference Range Interpretation [...] RDW-SD (test code = 46.6 fL 38.5-51.6 06788-7) RDW-CV (test code = 14.9 % 12.1-15.4 788-0) PLT (test code = 154 See_Comment [Automated 777-3) message] The sy stem which generated this result transmitted reference range : 150 - 328 10*3/ ?L. The reference r mitra was not used to interpret this result as normal/abnormal . MPV (test code = 9.5 fL 9.8-13.0 L 56403-5) NRBC/100 WBC (test 0.2 See_Comment [Automat ed code = 1448490167) message] The system which generated this result transmitted reference range : 0.0 - 10.0 /100 WBCs. The refer ence range was not u sed to interpret th is result as normal/abnormal . NRBC x10^3 (test code 0.02 See_Comment [Auto mated = 8876729952) message] The s ystem which generated this result transmitted reference range : 10*3/?L. The reference range was not used to interpret this result as normal/abnormal . GRAN MAT (NEUT) % 80.7 % (test code = 770-8) IMM GRAN % (test code 4.50 % = 9001799444) LYMPH % (test code = 6.5 % 736-9) MONO % (test code = 7.3 % 5905-5) EOS % (test code = 0.6 % 713-8) BASO % (test code = 0.4 % 706-2) GRAN MAT x10^3(ANC) 7.92 10*3/uL 1.99-6.95 H (test code = 0518283440) IMM GRAN x10^3 (test 0.44 10*3/uL 0.00-0.06 H code = 1680517820) LYMPH x10^3 (test code 0.64 10*3/uL 1.09-3.23 L = 731-0) MONO x10^3 (test code 0.72 10*3/uL 0.36-1.02 = 742-7) EOS x10^3 (test code = 0.06 10*3/uL 0.06-0.53 711-2) BASO x10^3 (test code 0.04 10*3/uL 0.01-0.09 = 704-7) MEAGHAN CELLS (test code 2+ See_Comment A [Auto mated = 3890-) message] The sy stem which generated this result transmitted reference range : (none). The reference range was not used to interpret this result as normal/abnormal . REACT LYMPHS (test Rare code = 9178948959) Lab Interpretation Abnormal (test code = 71741-0) [facility] 11:43:29 Test Item Value Reference Range Interpretation Comments MAGNESIUM (test code = 5453770353) 2.1 mg/dL 1.7-2.4 Lab Interpretation (test code = Normal 95958-8) [facility] 11:43:29 Test Item Value Reference Range Interpretation Comments PHOSPHORUS (test code = 5787373089) 3.7 mg/dL 2.5-5.0 Lab Interpretation (test code = Normal 86426-7) [facility] (NA, K, CL, CO2, GLUCOSE, BUN, CREATININE, CA)2022-05-31 11:43:29 Test Item Value Reference Range Interpretation Comments NA (test code = 133 mmol/L 135-145 L 3686405992) K (test code = 4.7 mmol/L 3.5-5.0 Slight 3106986639) hemolysis CL (test code = 104 mmol/L 98-108 7535228936) CO2 TOTAL (test code 25 mmol/L 23-31 = 1500486363) AGAP (test code = 4 2-16 2833863538) BUN (test code = 17 mg/dL 7-23 Slight 8486947036) hemolysis GLUCOSE (test code = 189 mg/dL 70-110 H 2227281727) CREATININE (test code 0.82 mg/dL 0.60-1.25 = 9948358548) CALCIUM (test code = 8.0 mg/dL 8.6-10.6 L 8014401454) eGFR (test code = 96.2 mL/min/1.73m2 6400918513) DEWAYNE (test code = DEWAYNE) Association of [...] tests). Lab Interpretation Abnormal (test code = 99645-1) [facility] 11:43:29 Test Item Value Reference Range Interpretation Comments MAGNESIUM (test code = 5282545068) 2.1 mg/dL 1.7-2.4 Lab Interpretation (test code = Normal 08323-9) [facility] 11:43:29 Test Item Value Reference Range Interpretation Comments PHOSPHORUS (test code = 9285769831) 3.7 mg/dL 2.5-5.0 Lab Interpretation (test code = Normal 81832-5) [facility] (NA, K, CL, CO2, GLUCOSE, BUN, CREATININE, CA)2022-05-31 11:43:29 Test Item Value Reference Range Interpretation Comments NA (test code = 133 mmol/L 135-145 L 5556818661) K (test code = 4.7 mmol/L 3.5-5.0 Slight 5008399423) hemolysis CL (test code = 104 mmol/L 98-108 0979545979) CO2 TOTAL (test code 25 mmol/L 23-31 = 7802226652) AGAP (test code = 4 2-16 9644515080) BUN (test code = 17 mg/dL 7-23 Slight 3818842553) hemolysis GLUCOSE (test code = 189 mg/dL 70-110 H 1426311895) CREATININE (test code 0.82 mg/dL 0.60-1.25 = 8686093881) CALCIUM (test code = 8.0 mg/dL 8.6-10.6 L 8650847907) eGFR (test code = 96.2 mL/min/1.73m2 2858714431) DEWAYNE (test code = DEWAYNE) Association of [...] tests). Lab Interpretation Abnormal (test code = 62135-9) [facility] 11:43:29 Test Item Value Reference Range Interpretation Comments MAGNESIUM (test code = 4366932054) 2.1 mg/dL 1.7-2.4 Lab Interpretation (test code = Normal 17887-8) [facility] 11:43:29 Test Item Value Reference Range Interpretation Comments PHOSPHORUS (test code = 5695737263) 3.7 mg/dL 2.5-5.0 Lab Interpretation (test code = Normal 85037-5) [facility] (NA, K, CL, CO2, GLUCOSE, BUN, CREATININE, CA)2022-05-31 11:43:29 Test Item Value Reference Range Interpretation Comments NA (test code = 133 mmol/L 135-145 L 5758912446) K (test code = 4.7 mmol/L 3.5-5.0 Slight 7924884258) hemolysis CL (test code = 104 mmol/L 98-108 3477842755) CO2 TOTAL (test code 25 mmol/L 23-31 = 1656605094) AGAP (test code = 4 2-16 8915607137) BUN (test code = 17 mg/dL 7-23 Slight 8642008631) hemolysis GLUCOSE (test code = 189 mg/dL 70-110 H 9090720494) CREATININE (test code 0.82 mg/dL 0.60-1.25 = 8878236415) CALCIUM (test code = 8.0 mg/dL 8.6-10.6 L 7521434070) eGFR (test code = 96.2 mL/min/1.73m2 4066700014) DEWAYNE (test code = DEWAYNE) Association of [...] tests). Lab Interpretation Abnormal (test code = 60022-6) [facility] 11:30:44 Test Item Value Reference Range Interpretation Comments Fibrinogen (test code = 0124576468) 218 mg/dL 167-453 Lab Interpretation (test code = Normal 40712-5) [facility] Test Item Value Reference Range Interpretation Comments Fibrinogen (test code = 2419512338) 218 mg/dL 167-453 Lab Interpretation (test code = Normal 17155-2) [facility] 11:30:44 Test Item Value Reference Range Interpretation Comments Fibrinogen (test code = 4261534396) 218 mg/dL 167-453 Lab Interpretation (test code = Normal 31249-9) [facility] / [id number] 11:29:02 Test Item Value Reference Range Interpretation Comments PROTIME PATIENT (test 12.7 See_Comment H [Auto mated message] code = 5964-2) The system [employer] generated this result transmitted ref erence range: 10.1 - 1 2.6 Seconds. The reference range was not used to int erpret this result as normal/abnormal . INR (test code = 6301-6) 1.1 Nor mal INR <1.1; Warfarin Therap eutic range 2.0 to 3. 0 or 2.5 to 3.5, dep ending upon the indica tions. Lab Interpretation (test Abnormal code = 79860-9) [facility] 11:29:02 Test Item Value Reference Range Interpretation Comments APTT Patient (test code 82 See_Comment H [Au tomated message] = 3173-2) The system [employer] generated this result transmitted ref erence range: 26 - 36 Seconds. The reference range was not used to int erpret this result as normal/abnormal . Lab Interpretation (test Abnormal code = 26898-3) [facility] / [id number] 11:29:02 Test Item Value Reference Range Interpretation Comments PROTIME PATIENT (test 12.7 See_Comment H [Auto mated message] code = 5964-2) The system [employer] generated this result transmitted ref erence range: 10.1 - 1 2.6 Seconds. The reference range was not used to int erpret this result as normal/abnormal . INR (test code = 6301-6) 1.1 Nor mal INR <1.1; Warfarin Therap eutic range 2.0 to 3. 0 or 2.5 to 3.5, dep ending upon the indica tions. Lab Interpretation (test Abnormal code = 53681-9) [facility] 11:29:02 Test Item Value Reference Range Interpretation Comments APTT Patient (test code 82 See_Comment H [Au tomated message] = 3173-2) The system [employer] generated this result transmitted ref erence range: 26 - 36 Seconds. The reference range was not used to int erpret this result as normal/abnormal . Lab Interpretation (test Abnormal code = 66365-5) [facility] / [id number] 11:29:02 Test Item Value Reference Range Interpretation Comments PROTIME PATIENT (test 12.7 See_Comment H [Auto mated message] code = 5964-2) The system [employer] generated this result transmitted ref erence range: 10.1 - 1 2.6 Seconds. The reference range was not used to int erpret this result as normal/abnormal . INR (test code = 6301-6) 1.1 Nor mal INR <1.1; Warfarin Therap eutic range 2.0 to 3. 0 or 2.5 to 3.5, dep ending upon the indica tions. Lab Interpretation (test Abnormal code = 53906-4) [facility] Test Item Value Reference Range Interpretation Comments APTT Patient (test code 82 See_Comment H [Au tomated message] = 3173-2) The system [employer] generated this result transmitted ref erence range: 26 - 36 Seconds. The reference range was not used to int erpret this result as normal/abnormal . Lab Interpretation (test Abnormal code = 56871-2) [facility] Test Item Value Reference Range Interpretation Comments Fibrinogen (test code = 0906878016) 124 mg/dL 167-453 L Lab Interpretation (test code = Abnormal 07810-5) [facility] Test Item Value Reference Range Interpretation Comments Fibrinogen (test code = 3608384102) 124 mg/dL 167-453 L Lab Interpretation (test code = Abnormal 39053-2) [facility]2023-04-18 02:12:17 Test Item Value Reference Range Interpretation Comments Fibrinogen (test code = 3793356889) 124 mg/dL 167-453 L Lab Interpretation (test code = Abnormal 34971-4) [facility]2023-04-17 22:27:11 Test Item Value Reference Range Interpretation Comments Fibrinogen (test code = 2787850022) 108 mg/dL 167-453 L Lab Interpretation (test code = Abnormal 19776-4) [address]04-17 22:27:11 Test Item Value Reference Range Interpretation Comments Fibrinogen (test code = 6981742479) 108 mg/dL 167-453 L Lab Interpretation (test code = Abnormal 06356-5) [facility]2023-04-17 22:27:11 Test Item Value Reference Range Interpretation Comments Fibrinogen (test code = 8715578237) 108 mg/dL 167-453 L Lab Interpretation (test code = Abnormal 00931-4) [facility]2023-04-17 18:54:36 Test Item Value Reference Range Interpretation Comments Fibrinogen (test code = 3333311482) 110 mg/dL 167-453 L Lab Interpretation (test code = Abnormal 61467-3) [facility]2023-04-17 18:54:36 Test Item Value Reference Range Interpretation Comments Fibrinogen (test code = 4176940867) 110 mg/dL 167-453 L Lab Interpretation (test code = Abnormal 60571-2) [facility]2023-04-17 18:54:36 Test Item Value Reference Range Interpretation Comments Fibrinogen (test code = 8225211357) 110 mg/dL 167-453 L Lab Interpretation (test code = Abnormal 06031-9) [facility]2023-04-17 18:54:36 Test Item Value Reference Range Interpretation Comments Fibrinogen (test code = 8608121698) 110 mg/dL 167-453 L Lab Interpretation (test code = Abnormal 15319-1) [facility]2023-04-17 15:54:43 Test Item Value Reference Range Interpretation Comments Fibrinogen (test code = 0448821333) 118 mg/dL 167-453 L Lab Interpretation (test code = Abnormal 67928-7) [facility]2023-04-17 15:54:43 Test Item Value Reference Range Interpretation Comments Fibrinogen (test code = 5687893871) 118 mg/dL 167-453 L Lab Interpretation (test code = Abnormal 30606-5) [facility]2023-04-17 15:54:43 Test Item Value Reference Range Interpretation Comments Fibrinogen (test code = 9394985278) 118 mg/dL 167-453 L Lab Interpretation (test code = Abnormal 88376-1) [facility]2023-04-17 15:54:43 Test Item Value Reference Range Interpretation Comments Fibrinogen (test code = 0050457576) 118 mg/dL 167-453 L Lab Interpretation (test code = Abnormal 85675-3) [facility]2023-04-17 13:43:27 Test Item Value Reference Range Interpretation Comments Fibrinogen (test code = 9752287550) 119 mg/dL 167-453 L Lab Interpretation (test code = Abnormal 70625-5) [facility]2023-04-17 13:43:27 Test Item Value Reference Range Interpretation Comments Fibrinogen (test code = 0127693918) 119 mg/dL 167-453 L Lab Interpretation (test code = Abnormal 11410-7) [facility]2023-04-17 13:43:27 Test Item Value Reference Range Interpretation Comments Fibrinogen (test code = 6266362043) 119 mg/dL 167-453 L Lab Interpretation (test code = Abnormal 61053-0) [facility]2023-04-17 13:43:27 Test Item Value Reference Range Interpretation Comments Fibrinogen (test code = 1268821579) 119 mg/dL 167-453 L Lab Interpretation (test code = Abnormal 56078-0) [facility]2023-04-17 11:50:10 Test Item Value Reference Range Interpretation Comments Fibrinogen (test code = 3183208641) 97 mg/dL 167-453 LL Lab Interpretation (test code = Abnormal 03337-8) [facility] 11:50:10 Test Item Value Reference Range Interpretation Comments Fibrinogen (test code = 4173070077) 97 mg/dL 167-453 LL Lab Interpretation (test code = Abnormal 14579-1) [facility] 11:[facility]:10 Test Item Value Reference Range Interpretation Comments Fibrinogen (test code = 4602499735) 97 mg/dL 167-453 LL Lab Interpretation (test code = Abnormal 70977-6) [facility] 11:50:10 Test Item Value Reference Range Interpretation Comments Fibrinogen (test code = 8561162605) 97 mg/dL 167-453 LL Lab Interpretation (test code = Abnormal 89058-7) [facility] WITH [id number] 10:13:04 Test Item Value Reference Range Interpretation [...] RDW-SD (test code = 45.3 fL 38.5-51.6 25183-6) RDW-CV (test code = 14.5 % 12.1-15.4 788-0) PLT (test code = 174 See_Comment [Automated 777-3) message] The sy stem which generated this result transmitted reference range : 150 - 328 10*3/ ?L. The reference r mitra was not used to interpret this result as normal/abnormal . MPV (test code = 8.9 fL 9.8-13.0 L 44372-3) NRBC/100 WBC (test 0.3 See_Comment [Automat ed code = 6201005343) message] The system which generated this result transmitted reference range : 0.0 - 10.0 /100 WBCs. The refer ence range was not u sed to interpret th is result as normal/abnormal . NRBC x10^3 (test code 0.03 See_Comment [Auto mated = 8037585623) message] The s ystem which generated this result transmitted reference range : 10*3/?L. The reference range was not used to interpret this result as normal/abnormal . GRAN MAT (NEUT) % 63.0 % (test code = 770-8) IMM GRAN % (test code 3.60 % = 1457289756) LYMPH % (test code = 17.5 % 736-9) MONO % (test code = 10.8 % 5905-5) EOS % (test code = 4.5 % 713-8) BASO % (test code = 0.6 % 706-2) GRAN MAT x10^3(ANC) 5.89 10*3/uL 1.99-6.95 (test code = 7157437910) IMM GRAN x10^3 (test 0.34 10*3/uL 0.00-0.06 H code = 5773093327) LYMPH x10^3 (test code 1.64 10*3/uL 1.09-3.23 = 731-0) MONO x10^3 (test code 1.01 10*3/uL 0.36-1.02 = 742-7) EOS x10^3 (test code = 0.42 10*3/uL 0.06-0.53 711-2) BASO x10^3 (test code 0.06 10*3/uL 0.01-0.09 = 704-7) REACT LYMPHS (test Rare code = 6855399403) Lab Interpretation Abnormal (test code = 26873-2) [facility] WITH [id number] 10:13:04 Test Item Value Reference Range Interpretation [...] RDW-SD (test code = 45.3 fL 38.5-51.6 38373-0) RDW-CV (test code = 14.5 % 12.1-15.4 788-0) PLT (test code = 174 See_Comment [Automated 777-3) message] The sy stem which generated this result transmitted reference range : 150 - 328 10*3/ ?L. The reference r mitra was not used to interpret this result as normal/abnormal . MPV (test code = 8.9 fL 9.8-13.0 L 59630-0) NRBC/100 WBC (test 0.3 See_Comment [Automat ed code = 0738392634) message] The system which generated this result transmitted reference range : 0.0 - 10.0 /100 WBCs. The refer ence range was not u sed to interpret th is result as normal/abnormal . NRBC x10^3 (test code 0.03 See_Comment [Auto mated = 0698297850) message] The s ystem which generated this result transmitted reference range : 10*3/?L. The reference range was not used to interpret this result as normal/abnormal . GRAN MAT (NEUT) % 63.0 % (test code = 770-8) IMM GRAN % (test code 3.60 % = 1294401063) LYMPH % (test code = 17.5 % 736-9) MONO % (test code = 10.8 % 5905-5) EOS % (test code = 4.5 % 713-8) BASO % (test code = 0.6 % 706-2) GRAN MAT x10^3(ANC) 5.89 10*3/uL 1.99-6.95 (test code = 6108756794) IMM GRAN x10^3 (test 0.34 10*3/uL 0.00-0.06 H code = 8948387112) LYMPH x10^3 (test code 1.64 10*3/uL 1.09-3.23 = 731-0) MONO x10^3 (test code 1.01 10*3/uL 0.36-1.02 = 742-7) EOS x10^3 (test code = 0.42 10*3/uL 0.06-0.53 711-2) BASO x10^3 (test code 0.06 10*3/uL 0.01-0.09 = 704-7) REACT LYMPHS (test Rare code = 2126273003) Lab Interpretation Abnormal (test code = 87624-9) [facility] WITH [id number] 10:13:04 Test Item Value Reference Range Interpretation Comments WBC (test code = 9.36 See_Comment [Automated 2784-2) message] The sy stem which generated this result transmitted reference range : 4.20 - 10.70 10*3/?L. The reference range was not used to interpret this result as normal/abnormal . RBC (test code = 4.03 See_Comment L [Automated 165-8) message] The sy stem which generated this [...] RDW-SD (test code = 45.3 fL 38.5-51.6 11308-2) RDW-CV (test code = 14.5 % 12.1-15.4 788-0) PLT (test code = 174 See_Comment [Automated 777-3) message] The sy stem which generated this result transmitted reference range : 150 - 328 10*3/ ?L. The reference r mitra was not used to interpret this result as normal/abnormal . MPV (test code = 8.9 fL 9.8-13.0 L 66557-1) NRBC/100 WBC (test 0.3 See_Comment [Automat ed code = 6656241407) message] The system which generated this result transmitted reference range : 0.0 - 10.0 /100 WBCs. The refer ence range was not u sed to interpret th is result as normal/abnormal . NRBC x10^3 (test code 0.03 See_Comment [Auto mated = 6595874843) message] The s ystem which generated this result transmitted reference range : 10*3/?L. The reference range was not used to interpret this result as normal/abnormal . GRAN MAT (NEUT) % 63.0 % (test code = 770-8) IMM GRAN % (test code 3.60 % = 7832645905) LYMPH % (test code = 17.5 % 736-9) MONO % (test code = 10.8 % 5905-5) EOS % (test code = 4.5 % 713-8) BASO % (test code = 0.6 % 706-2) GRAN MAT x10^3(ANC) 5.89 10*3/uL 1.99-6.95 (test code = 8921105915) IMM GRAN x10^3 (test 0.34 10*3/uL 0.00-0.06 H code = 2480503659) LYMPH x10^3 (test code 1.64 10*3/uL 1.09-3.23 = 731-0) MONO x10^3 (test code 1.01 10*3/uL 0.36-1.02 = 742-7) EOS x10^3 (test code = 0.42 10*3/uL 0.06-0.53 711-2) BASO x10^3 (test code 0.06 10*3/uL 0.01-0.09 = 704-7) REACT LYMPHS (test Rare code = 7512308213) Lab Interpretation Abnormal (test code = 86892-6) [facility] WITH [id number] 10:13:04 Test Item Value Reference Range Interpretation Comments WBC (test code = 9.36 See_Comment [Automated 7690-2) message] The sy stem which generated this result transmitted reference range : 4.20 - 10.70 10*3/?L. The reference range was not used to interpret this result as normal/abnormal . RBC (test code = 4.03 See_Comment L [Automated 729-8) message] The sy [...] RDW-SD (test code = 45.3 fL 38.5-51.6 34218-3) RDW-CV (test code = 14.5 % 12.1-15.4 788-0) PLT (test code = 174 See_Comment [Automated 777-3) message] The sy stem which generated this result transmitted reference range : 150 - 328 10*3/ ?L. The reference r mitra was not used to interpret this result as normal/abnormal . MPV (test code = 8.9 fL 9.8-13.0 L 91542-2) NRBC/100 WBC (test 0.3 See_Comment [Automat ed code = 4514065065) message] The system which generated this result transmitted reference range : 0.0 - 10.0 /100 WBCs. The refer ence range was not u sed to interpret th is result as normal/abnormal . NRBC x10^3 (test code 0.03 See_Comment [Auto mated = 8395807367) message] The s ystem which generated this result transmitted reference range : 10*3/?L. The reference range was not used to interpret this result as normal/abnormal . GRAN MAT (NEUT) % 63.0 % (test code = 770-8) IMM GRAN % (test code 3.60 % = 8179582653) LYMPH % (test code = 17.5 % 736-9) MONO % (test code = 10.8 % 5905-5) EOS % (test code = 4.5 % 713-8) BASO % (test code = 0.6 % 706-2) GRAN MAT x10^3(ANC) 5.89 10*3/uL 1.99-6.95 (test code = 5153547039) IMM GRAN x10^3 (test 0.34 10*3/uL 0.00-0.06 H code = 1874096429) LYMPH x10^3 (test code 1.64 10*3/uL 1.09-3.23 = 731-0) MONO x10^3 (test code 1.01 10*3/uL 0.36-1.02 = 742-7) EOS x10^3 (test code = 0.42 10*3/uL 0.06-0.53 711-2) BASO x10^3 (test code 0.06 10*3/uL 0.01-0.09 = 704-7) REACT LYMPHS (test Rare code = 5972527125) Lab Interpretation Abnormal (test code = 43419-1) [facility]10:03 Test Item Value Reference Range Interpretation Comments PHOSPHORUS (test code = 4958009179) 4.2 mg/dL 2.5-5.0 Lab Interpretation (test code = Normal 06423-2) [facility] 10:10:03 Test Item Value Reference Range Interpretation Comments MAGNESIUM (test code = 4906351539) 2.0 mg/dL 1.7-2.4 Lab Interpretation (test code = Normal 81082-6) [facility] METABOLIC PANEL (NA, K, CL, CO2, GLUCOSE, BUN, CREATININE, CA)2022-05-30 10:10:03 Test Item Value Reference Range Interpretation Comments NA (test code = 133 mmol/L 135-145 L 3050344538) K (test code = 3.9 mmol/L 3.5-5.0 0444579998) CL (test code = 103 mmol/L 98-108 9069259984) CO2 TOTAL (test code = 25 mmol/L 23-31 1298677466) AGAP (test code = 5 2-16 5181040204) BUN (test code = 22 mg/dL 7-23 2421870780) GLUCOSE (test code = 128 mg/dL 70-110 H 0360343506) CREATININE (test code = 0.87 mg/dL 0.60-1.25 9318750291) CALCIUM (test code = 8.2 mg/dL 8.6-10.6 L 0931460998) eGFR (test code = 89.8 mL/min/1.73m2 7984376822) DEWAYNE (test code = DEWAYNE) Association of [...] tests). Lab Interpretation Abnormal (test code = 11152-6) [facility] 10:10:03 Test Item Value Reference Range Interpretation Comments PHOSPHORUS (test code = 1085032871) 4.2 mg/dL 2.5-5.0 Lab Interpretation (test code = Normal 89273-1) [facility] 10:10:03 Test Item Value Reference Range Interpretation Comments MAGNESIUM (test code = 3326465737) 2.0 mg/dL 1.7-2.4 Lab Interpretation (test code = Normal 78077-7) [facility] (NA, K, CL, CO2, GLUCOSE, BUN, CREATININE, CA)2022-05-30 10:10:03 Test Item Value Reference Range Interpretation Comments NA (test code = 133 mmol/L 135-145 L 6776751072) K (test code = 3.9 mmol/L 3.5-5.0 3633439343) CL (test code = 103 mmol/L 98-108 8295549867) CO2 TOTAL (test code = 25 mmol/L 23-31 3732081403) AGAP (test code = 5 2-16 9910613928) BUN (test code = 22 mg/dL 7-23 8006105122) GLUCOSE (test code = 128 mg/dL 70-110 H 0512765356) CREATININE (test code = 0.87 mg/dL 0.60-1.25 0498217066) CALCIUM (test code = 8.2 mg/dL 8.6-10.6 L 5167681678) eGFR (test code = 89.8 mL/min/1.73m2 4968365790) DEWAYNE (test code = DEWAYNE) Association of [...] tests). Lab Interpretation Abnormal (test code = 06956-1) [facility] 10:10:03 Test Item Value Reference Range Interpretation Comments PHOSPHORUS (test code = 0563177795) 4.2 mg/dL 2.5-5.0 Lab Interpretation (test code = Normal 87382-1) [facility] 10:10:03 Test Item Value Reference Range Interpretation Comments MAGNESIUM (test code = 1436857902) 2.0 mg/dL 1.7-2.4 Lab Interpretation (test code = Normal 31275-5) [facility] (NA, K, CL, CO2, GLUCOSE, BUN, CREATININE, CA)2022-05-30 10:10:03 Test Item Value Reference Range Interpretation Comments NA (test code = 133 mmol/L 135-145 L 3516384642) K (test code = 3.9 mmol/L 3.5-5.0 1923928442) CL (test code = 103 mmol/L 98-108 7325664356) CO2 TOTAL (test code = 25 mmol/L 23-31 3663225922) AGAP (test code = 5 2-16 7438597715) BUN (test code = 22 mg/dL 7-23 3632872324) GLUCOSE (test code = 128 mg/dL 70-110 H 7684881270) CREATININE (test code = 0.87 mg/dL 0.60-1.25 4478831023) CALCIUM (test code = 8.2 mg/dL 8.6-10.6 L 7331506861) eGFR (test code = 89.8 mL/min/1.73m2 0692739329) DEWAYNE (test code = DEWAYNE) Association of [...] tests). Lab Interpretation Abnormal (test code = 96660-8) [facility] 10:10:03 Test Item Value Reference Range Interpretation Comments PHOSPHORUS (test code = 7663908533) 4.2 mg/dL 2.5-5.0 Lab Interpretation (test code = Normal 60593-6) [facility] 10:10:03 Test Item Value Reference Range Interpretation Comments MAGNESIUM (test code = 1459302955) 2.0 mg/dL 1.7-2.4 Lab Interpretation (test code = Normal 84058-6) [facility] METABOLIC PANEL (NA, K, CL, CO2, GLUCOSE, BUN, CREATININE, CA)2022-05-30 10:10:03 Test Item Value Reference Range Interpretation Comments NA (test code = 133 mmol/L 135-145 L 9528615829) K (test code = 3.9 mmol/L 3.5-5.0 0426770139) CL (test code = 103 mmol/L 98-108 0707105172) CO2 TOTAL (test code = 25 mmol/L 23-31 8146227128) AGAP (test code = 5 2-16 0850475622) BUN (test code = 22 mg/dL 7-23 8551349177) GLUCOSE (test code = 128 mg/dL 70-110 H 4091451009) CREATININE (test code = 0.87 mg/dL 0.60-1.25 7299125812) CALCIUM (test code = 8.2 mg/dL 8.6-10.6 L 6738124421) eGFR (test code = 89.8 mL/min/1.73m2 0205611734) DEWAYNE (test code = DEWAYNE) Association of [...] tests). Lab Interpretation Abnormal (test code = 32710-8) [facility] Test Item Value Reference Range Interpretation Comments Fibrinogen (test code = 4638505531) 86 mg/dL 167-453 LL Lab Interpretation (test code = Abnormal 70766-3) [facility] 09:52:38 Test Item Value Reference Range Interpretation Comments Fibrinogen (test code = 6916056737) 86 mg/dL 167-453 LL Lab Interpretation (test code = Abnormal 41721-0) [facility] 09:52:38 Test Item Value Reference Range Interpretation Comments Fibrinogen (test code = 1463490840) 86 mg/dL 167-453 LL Lab Interpretation (test code = Abnormal 80234-3) [facility]2023-04-17 09:52:38 Test Item Value Reference Range Interpretation Comments Fibrinogen (test code = 6711342067) 86 mg/dL 167-453 LL Lab Interpretation (test code = Abnormal 72419-3) [place] 70213023-04-17 09:51:57 Test Item Value Reference Range Interpretation Comments APTT Patient (test code 44 See_Comment H [Au tomated message] = 3173-2) The system FRAMED generated this result transmitted ref erence range: 26 - 36 Seconds. The reference range was not used to int erpret this result as normal/abnormal . Lab Interpretation (test Abnormal code = 59602-0) [place] 70213023-04-17 09:51:57 Test Item Value Reference Range Interpretation Comments APTT Patient (test code 44 See_Comment H [Au tomated message] = 3173-2) The system FRAMED generated this result transmitted ref erence range: 26 - 36 Seconds. The reference range was not used to int erpret this result as normal/abnormal . Lab Interpretation (test Abnormal code = 20676-3) [place] [address]-04-17 09:51:57 Test Item Value Reference Range Interpretation Comments APTT Patient (test code 44 See_Comment H [Au tomated message] = 3173-2) The system FRAMED generated this result transmitted ref erence range: 26 - 36 Seconds. The reference range was not used to int erpret this result as normal/abnormal . Lab Interpretation (test Abnormal code = 11751-0) [place] [address]-04-17 09:51:57 Test Item Value Reference Range Interpretation Comments APTT Patient (test code 44 See_Comment H [Au tomated message] = 3173-2) The system FRAMED generated this result transmitted ref erence range: 26 - 36 Seconds. The reference range was not used to int erpret this result as normal/abnormal . Lab Interpretation (test Abnormal code = 66149-6) [facility]2023-04-17 07:28:55 Test Item Value Reference Range Interpretation Comments Fibrinogen (test code = 4416180472) 73 mg/dL 167-453 LL Lab Interpretation (test code = Abnormal 00537-7) [facility] 07:28:[facility] Test Item Value Reference Range Interpretation Comments Fibrinogen (test code = 1288873027) 73 mg/dL 167-453 LL Lab Interpretation (test code = Abnormal 21214-9) [address]04-17 07:28:55 Test Item Value Reference Range Interpretation Comments Fibrinogen (test code = 0593165900) 73 mg/dL 167-453 LL Lab Interpretation (test code = Abnormal 35730-8) [address]04[address]17 07:28:55 Test Item Value Reference Range Interpretation Comments Fibrinogen (test code = 2769816782) 73 mg/dL 167-453 LL Lab Interpretation (test code = Abnormal 63931-0) [facility]22-[facility]-30 06:39:14 Test Item Value Reference Range Interpretation Comments APTT Patient (test code 44 See_Comment H [Au tomated message] = 3173-2) The system FRAMED generated this result transmitted ref erence range: 26 - 36 Seconds. The reference range was not used to int erpret this result as normal/abnormal . Lab Interpretation (test Abnormal code = 20333-8) [facility] D[facility]2022-05-30 06:39:14 Test Item Value Reference Range Interpretation Comments APTT Patient (test code 44 See_Comment H [Au tomated message] = 3173-2) The system FRAMED generated this result transmitted ref erence range: 26 - 36 Seconds. The reference range was not used to int erpret this result as normal/abnormal . Lab Interpretation (test Abnormal code = 86329-0) [facility] with Heparin D[facility]2022-05-30 06:39:14 Test Item Value Reference Range Interpretation Comments APTT Patient (test code 44 See_Comment H [Au tomated message] = 3173-2) The system FRAMED generated this result transmitted ref erence range: 26 - 36 Seconds. The reference range was not used to int erpret this result as normal/abnormal . Lab Interpretation (test Abnormal code = 50359-3) [facility] use with Heparin Drip[facility]2022-05-30 06:39:14 Test Item Value Reference Range Interpretation Comments APTT Patient (test code 44 See_Comment H [Au tomated message] = 3173-2) The system FRAMED generated this result transmitted ref erence range: 26 - 36 Seconds. The reference range was not used to int erpret this result as normal/abnormal . Lab Interpretation (test Abnormal code = 38736-8) [facility]2023-04-17 05:26:04 Test Item Value Reference Range Interpretation Comments Fibrinogen (test code = 7444714655) 71 mg/dL 167-453 LL Lab Interpretation (test code = Abnormal 09029-5) [facility]2023-04-17 05:26:04 Test Item Value Reference Range Interpretation Comments Fibrinogen (test code = 9049332855) 71 mg/dL 167-453 LL Lab Interpretation (test code = Abnormal 50333-3) [facility]2023-04-17 05:26:04 Test Item Value Reference Range Interpretation Comments Fibrinogen (test code = 4238492947) 71 mg/dL 167-453 LL Lab Interpretation (test code = Abnormal 83191-9) [facility]2023-04-17 05:26:04 Test Item Value Reference Range Interpretation Comments Fibrinogen (test code = 7757444989) 71 mg/dL 167-453 LL Lab Interpretation (test code = Abnormal 54788-6) [facility]2023-04-16 23:49:05 Test Item Value Reference Range Interpretation Comments Fibrinogen (test code = 0652621589) 98 mg/dL 167-453 LL Lab Interpretation (test code = Abnormal 05394-9) [facility]2023-04-16 23:49:05 Test Item Value Reference Range Interpretation Comments Fibrinogen (test code = 5192186288) 98 mg/dL 167-453 LL Lab Interpretation (test code = Abnormal 71260-3) [facility]2023-04-16 23:49:05 Test Item Value Reference Range Interpretation Comments Fibrinogen (test code = 0311482867) 98 mg/dL 167-453 LL Lab Interpretation (test code = Abnormal 86313-2) [facility]2023-04-16 23:49:05 Test Item Value Reference Range Interpretation Comments Fibrinogen (test code = 4511829805) 98 mg/dL 167-453 LL Lab Interpretation (test code = Abnormal 70757-0) [facility]2023-04-16 21:48:37 Test Item Value Reference Range Interpretation Comments Fibrinogen (test code = 5576615212) 113 mg/dL 167-453 L Lab Interpretation (test code = Abnormal 92992-0) [facility]2023-04-16 21:48:37 Test Item Value Reference Range Interpretation Comments Fibrinogen (test code = 2324312978) 113 mg/dL 167-453 L Lab Interpretation (test code = Abnormal 11353-4) [facility]2023-04-16 21:48:37 Test Item Value Reference Range Interpretation Comments Fibrinogen (test code = 0695863585) 113 mg/dL 167-453 L Lab Interpretation (test code = Abnormal 25346-8) [facility]2023-04-16 21:48:37 Test Item Value Reference Range Interpretation Comments Fibrinogen (test code = 7166366894) 113 mg/dL 167-453 L Lab Interpretation (test code = Abnormal 50188-7) [facility] METABOLIC PANEL (NA, K, CL, CO2, GLUCOSE, BUN, CREATININE, CA)2022-05-29 15:33:06 Test Item Value Reference Range Interpretation Comments NA (test code = 139 mmol/L 135-145 4043929870) K (test code = 4.2 mmol/L 3.5-5.0 8414043557) CL (test code = 104 mmol/L 98-108 2009933697) CO2 TOTAL (test code = 29 mmol/L 23-31 1833725286) AGAP (test code = 6 2-16 0405647225) BUN (test code = 25 mg/dL 7-23 H 7097891218) GLUCOSE (test code = 85 mg/dL 70-110 0945458018) CREATININE (test code = 1.02 mg/dL 0.60-1.25 7405600627) CALCIUM (test code = 8.7 mg/dL 8.6-10.6 1332312890) eGFR (test code = 74.8 mL/min/1.73m2 5396205427) DEWAYNE (test code = DEWAYNE) Association of [...] tests). Lab Interpretation Abnormal (test code = 99598-3) [facility] METABOLIC PANEL (NA, K, CL, CO2, GLUCOSE, BUN, CREATININE, CA)2022-05-29 15:33:06 Test Item Value Reference Range Interpretation Comments NA (test code = 139 mmol/L 135-145 4081098154) K (test code = 4.2 mmol/L 3.5-5.0 8706751738) CL (test code = 104 mmol/L 98-108 0743182954) CO2 TOTAL (test code = 29 mmol/L 23-31 5155399430) AGAP (test code = 6 2-16 1924770283) BUN (test code = 25 mg/dL 7-23 H 7569792902) GLUCOSE (test code = 85 mg/dL 70-110 7874990192) CREATININE (test code = 1.02 mg/dL 0.60-1.25 0123466523) CALCIUM (test code = 8.7 mg/dL 8.6-10.6 5075591909) eGFR (test code = 74.8 mL/min/1.73m2 0444853712) DEWAYNE (test code = DEWAYNE) Association of [...] tests). Lab Interpretation Abnormal (test code = 94891-3) [facility] METABOLIC PANEL (NA, K, CL, CO2, GLUCOSE, BUN, CREATININE, CA)2022-05-29 15:33:06 Test Item Value Reference Range Interpretation Comments NA (test code = 139 mmol/L 135-145 6429088302) K (test code = 4.2 mmol/L 3.5-5.0 0967675289) CL (test code = 104 mmol/L 98-108 1988041996) CO2 TOTAL (test code = 29 mmol/L 23-31 6403598676) AGAP (test code = 6 2-16 6063589316) BUN (test code = 25 mg/dL 7-23 H 0961601355) GLUCOSE (test code = 85 mg/dL 70-110 5585300848) CREATININE (test code = 1.02 mg/dL 0.60-1.25 0352982563) CALCIUM (test code = 8.7 mg/dL 8.6-10.6 3685875591) eGFR (test code = 74.8 mL/min/1.73m2 7602593110) DEWAYNE (test code = DEWAYNE) Association of [...] tests). Lab Interpretation Abnormal (test code = 10216-6) [facility] METABOLIC PANEL (NA, K, CL, CO2, GLUCOSE, BUN, CREATININE, CA)2022-05-29 15:33:06 Test Item Value Reference Range Interpretation Comments NA (test code = 139 mmol/L 135-145 4937690736) K (test code = 4.2 mmol/L 3.5-5.0 1770944489) CL (test code = 104 mmol/L 98-108 0086018033) CO2 TOTAL (test code = 29 mmol/L 23-31 6533719465) AGAP (test code = 6 2-16 6634575026) BUN (test code = 25 mg/dL 7-23 H 5483677789) GLUCOSE (test code = 85 mg/dL 70-110 6488165673) CREATININE (test code = 1.02 mg/dL 0.60-1.25 1822954373) CALCIUM (test code = 8.7 mg/dL 8.6-10.6 5786974144) eGFR (test code = 74.8 mL/min/1.73m2 5200962512) DEWAYNE (test code = DEWAYNE) Association of [...] tests). Lab Interpretation Abnormal (test code = 35459-0[facility] Test Item Value Reference Range Interpretation Comments Fibrinogen (test code = 7756699695) 368 mg/dL 167-453 Lab Interpretation (test code = Normal 67579-0) [facility] Test Item Value Reference Range Interpretation Comments Fibrinogen (test code = 3472671532) 368 mg/dL 167-453 Lab Interpretation (test code = Normal 00581-7) [facility] Test Item Value Reference Range Interpretation Comments Fibrinogen (test code = 3399415804) 368 mg/dL 167-453 Lab Interpretation (test code = Normal 16880-1) [facility]:15:[facility] Test Item Value Reference Range Interpretation Comments Fibrinogen (test code = 6538062681) 368 mg/dL 167-453 Lab Interpretation (test code = Normal 03409-1) [facility] [id number] 15:09:40 Test Item Value Reference Range Interpretation [...] RDW-SD (test code = 47.6 fL 38.5-51.6 33373-2) RDW-CV (test code = 14.7 % 12.1-15.4 788-0) PLT (test code = 252 See_Comment [Automated 777-3) message] The sy stem which generated this result transmitted reference range : 150 - 328 10*3/ ?L. The reference r mitra was not used to interpret this result as normal/abnormal . MPV (test code = 9.1 fL 9.8-13.0 L 69183-1) NRBC/100 WBC (test 0.0 See_Comment [Automat ed code = 9108299843) message] The system which generated this result transmitted reference range : 0.0 - 10.0 /100 WBCs. The refer ence range was not u sed to interpret th is result as normal/abnormal . NRBC x10^3 (test code See_Comment [Auto mated = 3498712821) message] The s ystem which generated this result transmitted reference range : 10*3/?L. The reference range was not used to interpret this result as normal/abnormal . GRAN MAT (NEUT) % 53.7 % (test code = 770-8) IMM GRAN % (test code 1.90 % = 5923590233) LYMPH % (test code = 29.6 % 736-9) MONO % (test code = 8.1 % 5905-5) EOS % (test code = 5.7 % 713-8) BASO % (test code = 1.0 % 706-2) GRAN MAT x10^3(ANC) 4.44 10*3/uL 1.99-6.95 (test code = 2967979635) IMM GRAN x10^3 (test 0.16 10*3/uL 0.00-0.06 H code = 6936809139) LYMPH x10^3 (test code 2.45 10*3/uL 1.09-3.23 = 731-0) MONO x10^3 (test code 0.67 10*3/uL 0.36-1.02 = 742-7) EOS x10^3 (test code = 0.47 10*3/uL 0.06-0.53 711-2) BASO x10^3 (test code 0.08 10*3/uL 0.01-0.09 = 704-7) Lab Interpretation Abnormal (test code = 11172-3) [facility] WITH [id number] 15:09:40 Test Item Value Reference Range Interpretation Comments WBC (test code = 8.27 See_Comment [Automated 9490-2) message] The sy stem which generated this [...] RDW-SD (test code = 47.6 fL 38.5-51.6 04789-2) RDW-CV (test code = 14.7 % 12.1-15.4 788-0) PLT (test code = 252 See_Comment [Automated 777-3) message] The sy stem which generated this result transmitted reference range : 150 - 328 10*3/ ?L. The reference r mitra was not used to interpret this result as normal/abnormal . MPV (test code = 9.1 fL 9.8-13.0 L 78884-5) NRBC/100 WBC (test 0.0 See_Comment [Automat ed code = 6147297881) message] The system which generated this result transmitted reference range : 0.0 - 10.0 /100 WBCs. The refer ence range was not u sed to interpret th is result as normal/abnormal . NRBC x10^3 (test code See_Comment [Auto mated = 5584424418) message] The s ystem which generated this result transmitted reference range : 10*3/?L. The reference range was not used to interpret this result as normal/abnormal . GRAN MAT (NEUT) % 53.7 % (test code = 770-8) IMM GRAN % (test code 1.90 % = 5995535514) LYMPH % (test code = 29.6 % 736-9) MONO % (test code = 8.1 % 5905-5) EOS % (test code = 5.7 % 713-8) BASO % (test code = 1.0 % 706-2) GRAN MAT x10^3(ANC) 4.44 10*3/uL 1.99-6.95 (test code = 6211411462) IMM GRAN x10^3 (test 0.16 10*3/uL 0.00-0.06 H code = 5367625920) LYMPH x10^3 (test code 2.45 10*3/uL 1.09-3.23 = 731-0) MONO x10^3 (test code 0.67 10*3/uL 0.36-1.02 = 742-7) EOS x10^3 (test code = 0.47 10*3/uL 0.06-0.53 711-2) BASO x10^3 (test code 0.08 10*3/uL 0.01-0.09 = 704-7) Lab Interpretation Abnormal (test code = 41720-0) [facility] WITH [id number] 15:09:40 Test Item Value Reference Range Interpretation Comments WBC (test code = 8.27 See_Comment [Automated 8490-2) message] The sy stem which generated this result transmitted reference range : 4.20 - 10.70 10*3/?L. The reference range was not used to interpret this result as normal/abnormal . RBC (test code = 4.18 See_Comment L [Automated 659-8) message] The sy stem which generated this [...] RDW-SD (test code = 47.6 fL 38.5-51.6 81735-8) RDW-CV (test code = 14.7 % 12.1-15.4 788-0) PLT (test code = 252 See_Comment [Automated 417-3) message] The sy stem which generated this result transmitted reference range : 150 - 328 10*3/ ?L. The reference r mitra was not used to interpret this result as normal/abnormal . MPV (test code = 9.1 fL 9.8-13.0 L 00750-8) NRBC/100 WBC (test 0.0 See_Comment [Automat ed code = 3037338052) message] The system which generated this result transmitted reference range : 0.0 - 10.0 /100 WBCs. The refer ence range was not u sed to interpret th is result as normal/abnormal . NRBC x10^3 (test code See_Comment [Auto mated = 7889868068) message] The s ystem which generated this result transmitted reference range : 10*3/?L. The reference range was not used to interpret this result as normal/abnormal . GRAN MAT (NEUT) % 53.7 % (test code = 770-8) IMM GRAN % (test code 1.90 % = 4099853881) LYMPH % (test code = 29.6 % 736-9) MONO % (test code = 8.1 % 5905-5) EOS % (test code = 5.7 % 713-8) BASO % (test code = 1.0 % 706-2) GRAN MAT x10^3(ANC) 4.44 10*3/uL 1.99-6.95 (test code = 1081295789) IMM GRAN x10^3 (test 0.16 10*3/uL 0.00-0.06 H code = 6377431713) LYMPH x10^3 (test code 2.45 10*3/uL 1.09-3.23 = 731-0) MONO x10^3 (test code 0.67 10*3/uL 0.36-1.02 = 742-7) EOS x10^3 (test code = 0.47 10*3/uL 0.06-0.53 711-2) BASO x10^3 (test code 0.08 10*3/uL 0.01-0.09 = 704-7) Lab Interpretation Abnormal (test code = 12769-3) [facility] WITH [id number] 15:09:40 Test Item Value Reference Range Interpretation [...] RDW-SD (test code = 47.6 fL 38.5-51.6 54543-2) RDW-CV (test code = 14.7 % 12.1-15.4 788-0) PLT (test code = 252 See_Comment [Automated 777-3) message] The sy stem which generated this result transmitted reference range : 150 - 328 10*3/ ?L. The reference r mitar was not used to interpret this result as normal/abnormal . MPV (test code = 9.1 fL 9.8-13.0 L 92803-1) NRBC/100 WBC (test 0.0 See_Comment [Automat ed code = 6273983382) message] The system which generated this result transmitted reference range : 0.0 - 10.0 /100 WBCs. The refer ence range was not u sed to interpret th is result as normal/abnormal . NRBC x10^3 (test code See_Comment [Auto mated = 2356475575) message] The s ystem which generated this result transmitted reference range : 10*3/?L. The reference range was not used to interpret this result as normal/abnormal . GRAN MAT (NEUT) % 53.7 % (test code = 770-8) IMM GRAN % (test code 1.90 % = 7393343558) LYMPH % (test code = 29.6 % 736-9) MONO % (test code = 8.1 % 5905-5) EOS % (test code = 5.7 % 713-8) BASO % (test code = 1.0 % 706-2) GRAN MAT x10^3(ANC) 4.44 10*3/uL 1.99-6.95 (test code = 5202288932) IMM GRAN x10^3 (test 0.16 10*3/uL 0.00-0.06 H code = 8744366675) LYMPH x10^3 (test code 2.45 10*3/uL 1.09-3.23 = 731-0) MONO x10^3 (test code 0.67 10*3/uL 0.36-1.02 = 742-7) EOS x10^3 (test code = 0.47 10*3/uL 0.06-0.53 711-2) BASO x10^3 (test code 0.08 10*3/uL 0.01-0.09 = 704-7) Lab Interpretation Abnormal (test code = 27938-4) [facility] with [facility] In[facility]2022-05-29 11:36:15 Test Item Value Reference Range Interpretation Comments APTT Patient (test code 52 See_Comment H [Au tomated message] = 3173-2) The system [employer] generated this result transmitted ref erence range: 26 - 36 Seconds. The reference range was not used to int erpret this result as normal/abnormal . Lab Interpretation (test Abnormal code = 31221-1) [facility] (for use with Heparin Infusion)2022-05-29 11:36:15 Test Item Value Reference Range Interpretation Comments APTT Patient (test code 52 See_Comment H [Au tomated message] = 3173-2) The system [employer] generated this result transmitted ref erence range: 26 - 36 Seconds. The reference range was not used to int erpret this result as normal/abnormal . Lab Interpretation (test Abnormal code = 92366-0) [facility] (for use with Heparin Infusion)2022-05-29 11:36:15 Test Item Value Reference Range Interpretation Comments APTT Patient (test code 52 See_Comment H [Au tomated message] = 3173-2) The system [employer] generated this result transmitted ref erence range: 26 - 36 Seconds. The reference range was not used to int erpret this result as normal/abnormal . Lab Interpretation (test Abnormal code = 11761-8) [facility]2022-[facility]29 11:36:15 Test Item Value Reference Range Interpretation Comments APTT Patient (test code 52 See_Comment H [Au tomated message] = 3173-2) The system [employer] generated this result transmitted ref erence range: 26 - 36 Seconds. The reference range was not used to int erpret this result as normal/abnormal . Lab Interpretation (test Abnormal code = 15410-6) [facility] METABOLIC PANEL (NA, K, CL, CO2, GLUCOSE, BUN, CREATININE, CA)2022-05-29 11:35:55 Test Item Value Reference Range Interpretation Comments NA (test code = 136 mmol/L 135-145 0557194063) K (test code = 4.9 mmol/L 3.5-5.0 Slight 3534757680) hemolysis CL (test code = 106 mmol/L 98-108 7525412724) CO2 TOTAL (test code 28 mmol/L 23-31 = 0486335089) AGAP (test code = 2 2-16 1433826967) BUN (test code = 26 mg/dL 7-23 H Slight 4111174723) hemolysis GLUCOSE (test code = 88 mg/dL 70-110 5291516699) CREATININE (test code 0.86 mg/dL 0.60-1.25 = 3680490913) CALCIUM (test code = 8.4 mg/dL 8.6-10.6 L 0876043212) eGFR (test code = 91.0 mL/min/1.73m2 2021509448) DEWAYNE (test code = DEWAYNE) Association of [...] tests). Lab Interpretation Abnormal (test code = 21646-1) [facility] 11:35:55 Test Item Value Reference Range Interpretation Comments MAGNESIUM (test code = 1644868209) 2.4 mg/dL 1.7-2.4 Lab Interpretation (test code = Normal 26681-3) [facility] (NA, K, CL, CO2, GLUCOSE, BUN, CREATININE, CA)2022-05-29 11:35:55 Test Item Value Reference Range Interpretation Comments NA (test code = 136 mmol/L 135-145 3319287979) K (test code = 4.9 mmol/L 3.5-5.0 Slight 4426047947) hemolysis CL (test code = 106 mmol/L 98-108 5633799322) CO2 TOTAL (test code 28 mmol/L 23-31 = 7361766015) AGAP (test code = 2 2-16 5894799063) BUN (test code = 26 mg/dL 7-23 H Slight 9302410350) hemolysis GLUCOSE (test code = 88 mg/dL 70-110 5576847630) CREATININE (test code 0.86 mg/dL 0.60-1.25 = 9267592927) CALCIUM (test code = 8.4 mg/dL 8.6-10.6 L 3573824165) eGFR (test code = 91.0 mL/min/1.73m2 7761748480) DEWAYNE (test code = DEWAYNE) Association of [...] tests). Lab Interpretation Abnormal (test code = 01168-7) [facility] 11:35:55 Test Item Value Reference Range Interpretation Comments MAGNESIUM (test code = 9179339891) 2.4 mg/dL 1.7-2.4 Lab Interpretation (test code = Normal 97949-0) [facility] (NA, K, CL, CO2, GLUCOSE, BUN, CREATININE, CA)2022-05-29 11:35:55 Test Item Value Reference Range Interpretation Comments NA (test code = 136 mmol/L 135-145 8829111539) K (test code = 4.9 mmol/L 3.5-5.0 Slight 6472669034) hemolysis CL (test code = 106 mmol/L 98-108 0995500717) CO2 TOTAL (test code 28 mmol/L 23-31 = 8888826675) AGAP (test code = 2 2-16 8771092826) BUN (test code = 26 mg/dL 7-23 H Slight 8417504454) hemolysis GLUCOSE (test code = 88 mg/dL 70-110 5388208521) CREATININE (test code 0.86 mg/dL 0.60-1.25 = 6222088757) CALCIUM (test code = 8.4 mg/dL 8.6-10.6 L 5818001129) eGFR (test code = 91.0 mL/min/1.73m2 0440964555) DEWAYNE (test code = DEWAYNE) Association of [...] tests). Lab Interpretation Abnormal (test code = 56067-3) [facility] 11:35:55 Test Item Value Reference Range Interpretation Comments MAGNESIUM (test code = 5723123156) 2.4 mg/dL 1.7-2.4 Lab Interpretation (test code = Normal 27776-4) [facility] (NA, K, CL, CO2, GLUCOSE, BUN, CREATININE, CA)2022-05-29 11:35:55 Test Item Value Reference Range Interpretation Comments NA (test code = 136 mmol/L 135-145 9550868074) K (test code = 4.9 mmol/L 3.5-5.0 Slight 2321794462) hemolysis CL (test code = 106 mmol/L 98-108 4038041267) CO2 TOTAL (test code 28 mmol/L 23-31 = 6547378157) AGAP (test code = 2 2-16 8079269544) BUN (test code = 26 mg/dL 7-23 H Slight 5190273523) hemolysis GLUCOSE (test code = 88 mg/dL 70-110 5700267065) CREATININE (test code 0.86 mg/dL 0.60-1.25 = 7253687835) CALCIUM (test code = 8.4 mg/dL 8.6-10.6 L 1330429445) eGFR (test code = 91.0 mL/min/1.73m2 1858640337) DEWAYNE (test code = DEWAYNE) Association of [...] tests). Lab Interpretation Abnormal (test code = 97867-3) [facility] 11:35:55 Test Item Value Reference Range Interpretation Comments MAGNESIUM (test code = 7402190751) 2.4 mg/dL 1.7-2.4 Lab Interpretation (test code = Normal 15812-6) [facility] [id number] 11:28:31 Test Item Value Reference Range Interpretation Comments WBC (test code = 6690-2) 7.81 See_Comment [A utomated message] The system [employer] generated this result transmit elizabeth reference range : 4.20 - 10.70 10*3/?L. The reference range was not used to interpret this result as normal/abnormal . RBC (test code = 789-8) 4.04 See_Comment L [Au tomated message] The system [employer] generated this result transmit elizabeth reference range [...] 252 See_Comment [Au tomated message] The system [employer] generated this result transmit elizabeth reference range : 150 - 328 10*3/?L. The reference range was not used to interpret this result as normal/abnormal . MPV (test code = 9.6 fL 9.8-13.0 L 10210-9) RDW-CV (test code = 14.6 % 12.1-15.4 788-0) RDW-SD (test code = 46.5 fL 38.5-51.6 91867-4) NRBC x10^3 (test code = See_Comment [Au tomated message] 0972759668) The system [employer] generated this result transmit elizabeth reference range : 10*3/?L. The reference range was not used to interpret this result as normal/abnormal . NRBC/100 WBC (test code 0.0 See_Comment [Au tomated message] = 3639057315) The system [facility] generated this result transmit elizabeth reference range : 0.0 - 10.0 /100 WBC s. The reference r mitra was not used to interpret this result as normal/abnormal . IPF % (test code = 4922119417) Lab Interpretation (test Abnormal code = 40056-1) [facility] Without [id number] 11:28:31 Test Item Value Reference Range Interpretation Comments WBC (test code = 6690-2) 7.81 See_Comment [A utomated message] The system [employer] generated this result transmit elizabeth reference range : 4.20 - 10.70 10*3/?L. The reference range was not used to interpret this result as normal/abnormal . RBC (test code = 789-8) 4.04 See_Comment L [Au tomated message] The system [employer] generated this result transmit elizabeth reference range [...] 252 See_Comment [Au tomated message] The system [employer] generated this result transmit elizabeth reference range : 150 - 328 10*3/?L. The reference range was not used to interpret this result as normal/abnormal . MPV (test code = 9.6 fL 9.8-13.0 L 17183-0) RDW-CV (test code = 14.6 % 12.1-15.4 788-0) RDW-SD (test code = 46.5 fL 38.5-51.6 64602-5) NRBC x10^3 (test code = See_Comment [Au tomated message] 5130930168) The system [employer] generated this result transmit elizabeth reference range : 10*3/?L. The reference range was not used to interpret this result as normal/abnormal . NRBC/100 WBC (test code 0.0 See_Comment [Au tomated message] = 6562146847) The system [facility] generated this result transmit elizabeth reference range : 0.0 - 10.0 /100 WBC s. The reference r mitra was not used to interpret this result as normal/abnormal . IPF % (test code = 1463982595) Lab Interpretation (test Abnormal code = 64897-8) [facility] [id number] 11:28:31 Test Item Value Reference Range Interpretation Comments WBC (test code = 6690-2) 7.81 See_Comment [A utomated message] The system [employer] generated this result transmit elizabeth reference range : 4.20 - 10.70 10*3/?L. The reference range was not used to interpret this result as normal/abnormal . RBC (test code = 789-8) 4.04 See_Comment L [Au tomated message] The system [employer] generated this result transmit elizabeth reference range [...] 252 See_Comment [Au tomated message] The system [facility] generated this result transmit elizabeth reference range : 150 - 328 10*3/?L. The reference range was not used to interpret this result as normal/abnormal . MPV (test code = 9.6 fL 9.8-13.0 L 68302-4) RDW-CV (test code = 14.6 % 12.1-15.4 788-0) RDW-SD (test code = 46.5 fL 38.5-51.6 19067-3) NRBC x10^3 (test code = See_Comment [Au tomated message] 4008545921) The system [employer] generated this result transmit elizabeth reference range : 10*3/?L. The reference range was not used to interpret this result as normal/abnormal . NRBC/100 WBC (test code 0.0 See_Comment [Au tomated message] = 4757759053) The system [facility] generated this result transmit elizabeth reference range : 0.0 - 10.0 /100 WBC s. The reference r mitra was not used to interpret this result as normal/abnormal . IPF % (test code = 7064761701) Lab Interpretation (test Abnormal code = 80861-5) [facility] Without [id number] 11:28:31 Test Item Value Reference Range Interpretation Comments WBC (test code = 6690-2) 7.81 See_Comment [A utomated message] The system [facility] generated this result transmit elizabeth reference range : 4.20 - 10.70 10*3/?L. The reference range was not used to interpret this result as normal/abnormal . RBC (test code = 789-8) 4.04 See_Comment L [Au tomated message] The system [facility] generated this result transmit elizabeth [...] 252 See_Comment [Au tomated message] The system [employer] generated this result transmit elizabeth reference range : 150 - 328 10*3/?L. The reference range was not used to interpret this result as normal/abnormal . MPV (test code = 9.6 fL 9.8-13.0 L 79026-1) RDW-CV (test code = 14.6 % 12.1-15.4 788-0) RDW-SD (test code = 46.5 fL 38.5-51.6 26999-5) NRBC x10^3 (test code = See_Comment [Au tomated message] 6340223665) The system [employer] generated this result transmit elizabeth reference range : 10*3/?L. The reference range was not used to interpret this result as normal/abnormal . NRBC/100 WBC (test code 0.0 See_Comment [Au tomated message] = 0493175489) The system [employer] generated this result transmit elizabeth reference range : 0.0 - 10.0 /100 WBC s. The reference r mitra was not used to interpret this result as normal/abnormal . 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 Mutation Tested: F2 c.17811S>A (Z90616I). Clinical Sensitivity for Venous Thrombosis: Approximately 10%. Methodology: Polymerase chain reaction and fluorescence monitoring Limitations: The performance of this assay has not been evaluated with samples from pediatric patients. Counseling and informed consent are recommended for genetic testing. References: OMIM: 565210 [email or web address].nlm.nih.gov/c ondition/prothrombin-thro mbophilia [facility] [id number] 18:45:15 Test Item Value Reference Range Interpretation Comments FACTOR 5 LEIDEN Heterozygous Normal (test code = 8950706091) DEWAYNE (test code = Phenotype Characteristics: DEWAYNE) [...] the Factor 5 Leiden mutation is c.1601G>A (p.Mdm829Tsm). Methodology: Polymerase chain reaction and fluorescence monitoring. Limitations: Rare Factor V mutations (W7449F, N3216I, and V1604D) and any additional SNPs in the probe binding region may interfere with the target detection and yield an INVALID result. The performance of this assay has not been evaluated with samples from pediatric patients. Counseling and informed consent are recommended for genetic testing. References: OMIM: 967430 [email or web address].nlm.nih.gov/co ndition/zkmjxc-m-nellqh-th rombophilia [facility] [id number] 18:45:15 Test Item Value Reference Range Interpretation Comments Factor 2 L63951E Heterozygous Normal Mutation (test code = 0090318041) DEWAYNE (test code = Phenotype DEWAYNE) Characteristics: [...] further increased for homozygotes. Mutation Tested: F2 c.24950J>A (V96867S). Clinical Sensitivity for Venous Thrombosis: Approximately 10%. Methodology: Polymerase chain reaction and fluorescence monitoring Limitations: The performance of this assay has not been evaluated with samples from pediatric patients. Counseling and informed consent are recommended for genetic testing. References: OMIM: 643578 https://ghr.nlm.nih.gov/c ondition/prothrombin-thro mbophilia [facility] [id number] 18:45:15 Test Item Value Reference Range Interpretation Comments FACTOR 5 LEIDEN Heterozygous Normal (test code = 8412328423) DEWAYNE (test code = Phenotype Characteristics: DEWAYNE) [...] the Factor 5 Leiden mutation is c.1601G>A (p.Vmu985Lsr). Methodology: Polymerase chain reaction and fluorescence monitoring. Limitations: Rare Factor V mutations (L1086Z, O6011B, and Y8781Z) and any additional SNPs in the probe binding region may interfere with the target detection and yield an INVALID result. The performance of this assay has not been evaluated with samples from pediatric patients. Counseling and informed consent are recommended for genetic testing. References: OMIM: 594106 https://ghr.nlm.nih.gov/co ndition/cmkgub-f-fmdzgc-th rombophilia [facility] [id number] 18:45:15 Test Item Value Reference Range Interpretation Comments Factor 2 [id number] Heterozygous Normal Mutation (test code = 9469985944) DEWAYNE (test code = Phenotype DEWAYNE) Characteristics: [...] further increased for homozygotes. Mutation Tested: F2 c.94820Y>A (U83009S). Clinical Sensitivity for Venous Thrombosis: Approximately 10%. Methodology: Polymerase chain reaction and fluorescence monitoring Limitations: The performance of this assay has not been evaluated with samples from pediatric patients. Counseling and informed consent are recommended for genetic testing. References: OMIM: 861332 https://ghr.nlm.nih.gov/c ondition/prothrombin-thro mbophilia [facility] [id number] 18:45:15 Test Item Value Reference Range Interpretation Comments FACTOR 5 LEIDEN Heterozygous Normal (test code = 3175927312) DEWAYNE (test code = Phenotype Characteristics: DEWAYNE) [...] the Factor 5 Leiden mutation is c.1601G>A (p.See762Rla). Methodology: Polymerase chain reaction and fluorescence monitoring. Limitations: Rare Factor V mutations (B8980I, H9691H, and O9968I) and any additional SNPs in the probe binding region may interfere with the target detection and yield an INVALID result. The performance of this assay has not been evaluated with samples from pediatric patients. Counseling and informed consent are recommended for genetic testing. References: OMIM: 478141 https://ghr.nlm.nih.gov/co ndition/hchopw-h-peijng-th rombophilia [facility] [id number] 18:45:15 Test Item Value Reference Range Interpretation Comments Factor 2 C63700T Heterozygous Normal Mutation (test code = 6979492446) DEWAYNE (test code = Phenotype DEWAYNE) Characteristics: [...] further increased for homozygotes. Mutation Tested: F2 c.59666L>A (M61421G). Clinical Sensitivity for Venous Thrombosis: Approximately 10%. Methodology: Polymerase chain reaction and fluorescence monitoring Limitations: The performance of this assay has not been evaluated with samples from pediatric patients. Counseling and informed consent are recommended for genetic testing. References: OMIM: 406665 https://ghr.nlm.nih.gov/c ondition/prothrombin-thro mbophilia [facility] [id number] 18:45:15 Test Item Value Reference Range Interpretation Comments FACTOR 5 LEIDEN Heterozygous Normal (test code = 2470443478) DEWAYNE (test code = Phenotype Characteristics: DEWAYNE) [...] the Factor 5 Leiden mutation is c.1601G>A (p.Zic373Ruf). Methodology: Polymerase chain reaction and fluorescence monitoring. Limitations: Rare Factor V mutations (G0760G, Z4553G, and Z0912M) and any additional SNPs in the probe binding region may interfere with the target detection and yield an INVALID result. The performance of this assay has not been evaluated with samples from pediatric patients. Counseling and informed consent are recommended for genetic testing. References: OMIM: 015280 https://ghr.nlm.nih.gov/co ndition/wdefgo-e-coqzif-th rombophilia [facility] (NA, K, CL, CO2, GLUCOSE, BUN, CREATININE, CA)2022-05-28 09:52:42 Test Item Value Reference Range Interpretation Comments NA (test code = 137 mmol/L 135-145 0336146274) K (test code = 3.8 mmol/L 3.5-5.0 2069762580) CL (test code = 103 mmol/L 98-108 5490620073) CO2 TOTAL (test code = 27 mmol/L 23-31 5950001668) AGAP (test code = 7 2-16 7186122655) BUN (test code = 27 mg/dL 7-23 H 6467136393) GLUCOSE (test code = 105 mg/dL 70-110 5429951661) CREATININE (test code = 0.84 mg/dL 0.60-1.25 9903874899) CALCIUM (test code = 8.5 mg/dL 8.6-10.6 L 3383563629) eGFR (test code = 93.5 mL/min/1.73m2 8846379236) DEWAYNE (test code = DEWAYNE) Association of [...] tests). Lab Interpretation Abnormal (test code = 30750-7) [facility] METABOLIC PANEL (NA, K, CL, CO2, GLUCOSE, BUN, CREATININE, CA)2022-05-28 09:52:42 Test Item Value Reference Range Interpretation Comments NA (test code = 137 mmol/L 135-145 3385151167) K (test code = 3.8 mmol/L 3.5-5.0 6863708306) CL (test code = 103 mmol/L 98-108 4694728069) CO2 TOTAL (test code = 27 mmol/L 23-31 7305266549) AGAP (test code = 7 2-16 8026772490) BUN (test code = 27 mg/dL 7-23 H 9359318358) GLUCOSE (test code = 105 mg/dL 70-110 8740275902) CREATININE (test code = 0.84 mg/dL 0.60-1.25 3356950375) CALCIUM (test code = 8.5 mg/dL 8.6-10.6 L 5078829589) eGFR (test code = 93.5 mL/min/1.73m2 8897478168) DEWAYNE (test code = DEWAYNE) Association of [...] tests). Lab Interpretation Abnormal (test code = 97138-5) [facility] METABOLIC PANEL (NA, K, CL, CO2, GLUCOSE, BUN, CREATININE, CA)2022-05-28 09:52:42 Test Item Value Reference Range Interpretation Comments NA (test code = 137 mmol/L 135-145 8401583409) K (test code = 3.8 mmol/L 3.5-5.0 6383746655) CL (test code = 103 mmol/L 98-108 9149010129) CO2 TOTAL (test code = 27 mmol/L 23-31 5363064598) AGAP (test code = 7 2-16 3743761524) BUN (test code = 27 mg/dL 7-23 H 9441190962) GLUCOSE (test code = 105 mg/dL 70-110 1009652381) CREATININE (test code = 0.84 mg/dL 0.60-1.25 4967708000) CALCIUM (test code = 8.5 mg/dL 8.6-10.6 L 6137646520) eGFR (test code = 93.5 mL/min/1.73m2 4946087497) DEWAYNE (test code = DEWAYNE) Association of [...] tests). Lab Interpretation Abnormal (test code = 35657-9) [facility] METABOLIC PANEL (NA, K, CL, CO2, GLUCOSE, BUN, CREATININE, CA)2022-05-28 09:52:42 Test Item Value Reference Range Interpretation Comments NA (test code = 137 mmol/L 135-145 7530025611) K (test code = 3.8 mmol/L 3.5-5.0 4289695960) CL (test code = 103 mmol/L 98-108 9584311755) CO2 TOTAL (test code = 27 mmol/L 23-31 5106932276) AGAP (test code = 7 2-16 7755493142) BUN (test code = 27 mg/dL 7-23 H 5767541013) GLUCOSE (test code = 105 mg/dL 70-110 9187693317) CREATININE (test code = 0.84 mg/dL 0.60-1.25 2706423834) CALCIUM (test code = 8.5 mg/dL 8.6-10.6 L 7023962069) eGFR (test code = 93.5 mL/min/1.73m2 8019556525) DEWAYNE (test code = DEWAYNE) Association of [...] tests). Lab Interpretation Abnormal (test code = 44511-1) [facility] WITH [id number] 09:29:20 Test Item Value Reference Range Interpretation Comments WBC (test code = 8.34 See_Comment [Automated 1090-2) message] The sy stem which generated this result transmitted reference range : 4.20 - 10.70 10*3/?L. The reference range was not used to interpret this result as normal/abnormal . RBC (test code = 4.08 See_Comment L [Automated 179-8) message] The sy [...] RDW-SD (test code = 44.7 fL 38.5-51.6 82376-0) RDW-CV (test code = 14.5 % 12.1-15.4 788-0) PLT (test code = 199 See_Comment [Automated 777-3) message] The sy stem which generated this result transmitted reference range : 150 - 328 10*3/ ?L. The reference r mitra was not used to interpret this result as normal/abnormal . MPV (test code = 9.3 fL 9.8-13.0 L 99659-7) NRBC/100 WBC (test 0.0 See_Comment [Automat ed code = 3465827667) message] The system which generated this result transmitted reference range : 0.0 - 10.0 /100 WBCs. The refer ence range was not u sed to interpret th is result as normal/abnormal . NRBC x10^3 (test code See_Comment [Auto mated = 8917162625) message] The s ystem which generated this result transmitted reference range : 10*3/?L. The reference range was not used to interpret this result as normal/abnormal . GRAN MAT (NEUT) % 56.1 % (test code = 770-8) IMM GRAN % (test code 1.20 % = 6747218186) LYMPH % (test code = 30.8 % 736-9) MONO % (test code = 7.6 % 5905-5) EOS % (test code = 3.7 % 713-8) BASO % (test code = 0.6 % 706-2) GRAN MAT x10^3(ANC) 4.68 10*3/uL 1.99-6.95 (test code = 3753885916) IMM GRAN x10^3 (test 0.10 10*3/uL 0.00-0.06 H code = 5814188459) LYMPH x10^3 (test code 2.57 10*3/uL 1.09-3.23 = 731-0) MONO x10^3 (test code 0.63 10*3/uL 0.36-1.02 = 742-7) EOS x10^3 (test code = 0.31 10*3/uL 0.06-0.53 711-2) BASO x10^3 (test code 0.05 10*3/uL 0.01-0.09 = 704-7) Lab Interpretation Abnormal (test code = 51124-9) [facility] WITH [id number] 09:29:20 Test Item Value Reference Range Interpretation [...] RDW-SD (test code = 44.7 fL 38.5-51.6 10363-6) RDW-CV (test code = 14.5 % 12.1-15.4 788-0) PLT (test code = 199 See_Comment [Automated 777-3) message] The sy stem which generated this result transmitted reference range : 150 - 328 10*3/ ?L. The reference r mitra was not used to interpret this result as normal/abnormal . MPV (test code = 9.3 fL 9.8-13.0 L 30554-8) NRBC/100 WBC (test 0.0 See_Comment [Automat ed code = 1389068966) message] The system which generated this result transmitted reference range : 0.0 - 10.0 /100 WBCs. The refer ence range was not u sed to interpret th is result as normal/abnormal . NRBC x10^3 (test code See_Comment [Auto mated = 5964984342) message] The s ystem which generated this result transmitted reference range : 10*3/?L. The reference range was not used to interpret this result as normal/abnormal . GRAN MAT (NEUT) % 56.1 % (test code = 770-8) IMM GRAN % (test code 1.20 % = 7591031794) LYMPH % (test code = 30.8 % 736-9) MONO % (test code = 7.6 % 5905-5) EOS % (test code = 3.7 % 713-8) BASO % (test code = 0.6 % 706-2) GRAN MAT x10^3(ANC) 4.68 10*3/uL 1.99-6.95 (test code = 9844595729) IMM GRAN x10^3 (test 0.10 10*3/uL 0.00-0.06 H code = 8648914025) LYMPH x10^3 (test code 2.57 10*3/uL 1.09-3.23 = 731-0) MONO x10^3 (test code 0.63 10*3/uL 0.36-1.02 = 742-7) EOS x10^3 (test code = 0.31 10*3/uL 0.06-0.53 711-2) BASO x10^3 (test code 0.05 10*3/uL 0.01-0.09 = 704-7) Lab Interpretation Abnormal (test code = 39762-6) [facility] WITH [id number] 09:29:20 Test Item Value Reference Range Interpretation Comments WBC (test code = 8.34 See_Comment [Automated 3694-2) message] The sy stem which generated this result transmitted reference range : 4.20 - 10.70 10*3/?L. The reference range was not used to interpret this result as normal/abnormal . RBC (test code = 4.08 See_Comment L [Automated 126-8) message] The sy stem which generated this [...] RDW-SD (test code = 44.7 fL 38.5-51.6 56102-3) RDW-CV (test code = 14.5 % 12.1-15.4 788-0) PLT (test code = 199 See_Comment [Automated 777-3) message] The sy stem which generated this result transmitted reference range : 150 - 328 10*3/ ?L. The reference r mitra was not used to interpret this result as normal/abnormal . MPV (test code = 9.3 fL 9.8-13.0 L 21099-4) NRBC/100 WBC (test 0.0 See_Comment [Automat ed code = 4577381945) message] The system which generated this result transmitted reference range : 0.0 - 10.0 /100 WBCs. The refer ence range was not u sed to interpret th is result as normal/abnormal . NRBC x10^3 (test code See_Comment [Auto mated = 0314079832) message] The s ystem which generated this result transmitted reference range : 10*3/?L. The reference range was not used to interpret this result as normal/abnormal . GRAN MAT (NEUT) % 56.1 % (test code = 770-8) IMM GRAN % (test code 1.20 % = 9114237058) LYMPH % (test code = 30.8 % 736-9) MONO % (test code = 7.6 % 5905-5) EOS % (test code = 3.7 % 713-8) BASO % (test code = 0.6 % 706-2) GRAN MAT x10^3(ANC) 4.68 10*3/uL 1.99-6.95 (test code = 8159446892) IMM GRAN x10^3 (test 0.10 10*3/uL 0.00-0.06 H code = 6878772531) LYMPH x10^3 (test code 2.57 10*3/uL 1.09-3.23 = 731-0) MONO x10^3 (test code 0.63 10*3/uL 0.36-1.02 = 742-7) EOS x10^3 (test code = 0.31 10*3/uL 0.06-0.53 711-2) BASO x10^3 (test code 0.05 10*3/uL 0.01-0.09 = 704-7) Lab Interpretation Abnormal (test code = 90974-9) [facility] WITH [id number] 09:29:20 Test Item Value Reference Range Interpretation Comments WBC (test code = 8.34 See_Comment [Automated 6690-2) message] The sy stem which generated this result transmitted reference range : 4.20 - 10.70 10*3/?L. The reference range was not used to interpret this result as normal/abnormal . RBC (test code = 4.08 See_Comment L [Automated 919-8) message] The sy [...] RDW-SD (test code = 44.7 fL 38.5-51.6 10611-3) RDW-CV (test code = 14.5 % 12.1-15.4 788-0) PLT (test code = 199 See_Comment [Automated 777-3) message] The sy stem which generated this result transmitted reference range : 150 - 328 10*3/ ?L. The reference r mitra was not used to interpret this result as normal/abnormal . MPV (test code = 9.3 fL 9.8-13.0 L 15568-3) NRBC/100 WBC (test 0.0 See_Comment [Automat ed code = 4802798706) message] The system which generated this result transmitted reference range : 0.0 - 10.0 /100 WBCs. The refer ence range was not u sed to interpret th is result as normal/abnormal . NRBC x10^3 (test code See_Comment [Auto mated = 6391804310) message] The s ystem which generated this result transmitted reference range : 10*3/?L. The reference range was not used to interpret this result as normal/abnormal . GRAN MAT (NEUT) % 56.1 % (test code = 770-8) IMM GRAN % (test code 1.20 % = 6165983645) LYMPH % (test code = 30.8 % 736-9) MONO % (test code = 7.6 % 5905-5) EOS % (test code = 3.7 % 713-8) BASO % (test code = 0.6 % 706-2) GRAN MAT x10^3(ANC) 4.68 10*3/uL 1.99-6.95 (test code = 0612483179) IMM GRAN x10^3 (test 0.10 10*3/uL 0.00-0.06 H code = 4248596809) LYMPH x10^3 (test code 2.57 10*3/uL 1.09-3.23 = 731-0) MONO x10^3 (test code 0.63 10*3/uL 0.36-1.02 = 742-7) EOS x10^3 (test code = 0.31 10*3/uL 0.06-0.53 711-2) BASO x10^3 (test code 0.05 10*3/uL 0.01-0.09 = 704-7) Lab Interpretation Abnormal (test code = 89622-6) [facility] (Jorgera), [id number] 04:20:00 Test Item Value Reference Interpretation Comments Range Levetiracetam 4.1 ug/mL 10.0-40.0 A This test was developed and ([facility]), S (test its perfor fritz code = JORGERA.L) characteris ticsdetermined by [facility]. It has not been cleared orappro mannie by the Food and Drug Administration. Performed at: - [facility] [email or web address] [facility], [place], [place] [id number] Di shahid: Miriam Sevilla MD, Ph one: [phone] Drug Screen,[id number] 20:40:00 Test Item Value Reference Range Interpretation [...] Negative Negative code = UPROP) Comprehensive Metabolic Ahcxa2857-67-26 19:50:00 Test Item Value Reference Range Interpretation [...] 47 U/L 46-116 N = ALP) Troponin [id number] 19:50:00 Test Item Value Reference Range Interpretation [...] 99th percentile in serialmeasureme nts. Prothrombin Time [id number] 19:50:00 Test Item Value Reference Range Interpretation Comments Prothrombin Time (test code = 10.9 Seconds 9.8-13.4 N PT) INR (test code = INR) 1.0 ratio 0.6-1.2 N Partial Thromboplastin Qbgp6183-66-58 19:50:00 Test Item Value Reference Range Interpretation Comments Partial Thromboplastin Time 20.00 Seconds 24.39-37.25 L (test code = PTT) Complete Blood Count Auto Axje3346-78-69 19:50:00 Test Item Value Reference Range Interpretation [...] code = NRBCP) 0 % B-Type Natriuretic Yzrxtan6149-22-40 19:50:00 Test Item Value Reference Range Interpretation Comments B-Type Natriuretic Peptide (test 30.2 pg/mL 0.0-99.9 N code = BNP) SARS-CoV-2 (COVID-19) RNA [Presence] in Respiratory specimen by COOPER with probe hdgwdcpze7692-50-13 03:31:41 Test Item Value Reference Range Interpretation Comments SARS-CoV-2 (COVID-19) RNA Not detected Not-Detected [Presence] in Respiratory specimen by COOPER with probe detection (test code = 56330-7) [facility] Metabolic Cbjqr5572-82-23 20:19:00 Test Item Value Reference Range Interpretation [...] ://nkd ep.nih.gov CT HEAD OR BRAIN WO BBXMVWSU2550-76-60 18:19:40Location code: R 15HISTORY: Intracranial hemorrhageCOMPARISON: None.TECHNIQUE: [...] Unremarkable nonenhanced CT scan of the brain.Ammonia, Ibhqd8585-27-81 12:35:00 Test Item Value Reference Range Interpretation Comments Ammonia (test code = NH3) 25.0 umol/L 11.0-35.0 N US DUPLX EXT VEINS COMPRS, [id number] 15:35:40ULTRASOUND: Bilateral lower extremity venous duplex sonography.History: [...] An IVC filter is in place.Impression:Unremarkable exam.Glycosylated Jedvxwlgcs7935-15-85 10:36:00 Test Item Value Reference Range Interpretation Comments HBA1c (test code = HBA1C) 5.1 % 4.8-5.9 N RPR, Fdfw8915-73-72 12:10:00 Test Item Value Reference Range Interpretation Comments RPR (test code = RPR) Non-Reactive Non-Reactive N Thyroid Stimulating Hormone (TSH)2016-12-24 06:02:00 Test Item Value Reference Range Interpretation Comments TSH (test code = TSH) 1.03 mIU/mL 0.270-4.200 N Lipid Wuzmedi2077-94-33 05:53:00 Test Item Value Reference Range Interpretation Comments Cholesterol (test 205 mg/dL 0-200 H code = CHOL) Triglycerides (test 69 mg/dL 9-200 N code = TRIG) HDL (test code = 68 mg/dL 40-60 H HDL) Chol/HDL (test code 3.0 Ratio 0.0-5.0 N = CHOLPHDL) LDL, Calculated 123 0-130 N (NOTE)RISK O F HEART (test code = LDLC) DISEASEPu blished by [place] Heart AssociationAnal yte Optimal Boderli ne Increased RiskC HOL <200 200-239 >240TRI G <150 150-199 >200HD L Male: >60 <40HDL Fema le: >60 <50LDL <100 13 0-159 >160LDL NEAR OP TIMAL IS 100-129 VLDL (test code = 14 mg/dL 5-40 N VLDL) LDL/HDL (test code = 2 LDLPHDL) Comprehensive Metabolic Mztyq6342-66-59 18:42:00 Test Item Value Reference Range Interpretation [...] National [employer] Foundation,http ://nkd ep.nih.gov CBC with Hoqooeasjmpk1823-82-56 17:59:00 Test Item Value Reference Range Interpretation [...] code = ALYMPH) 1.4 K/cumm 0.5-4.6 N [place] Abs (test code = AMONO) 0.9 K/cumm 0.0-1.2 N Eos Abs (test code = AEOS) 0.01 K/cumm 0.00-0.74 N Baso Abs (test code = ABASO) 0.0 K/cumm 0.00-0.21 N VHMFHAMSNQYA9135-58-76 18:46:00 Test Item Value Reference Range Interpretation Comments B/C Ratio (test code = B/C Ratio) 18 6-25 [facility]LoifjohMOBNVWSZVLQR0432-40-40 18:46:00 Test Item Value Reference Range Interpretation Comments A/G Ratio (test code = A/G Ratio) 1.1 0.7-1.6 [facility] HospitalUhloloyETSEUCCSPOBD9231-80-17 18:46:00 Test Item Value Reference Range Interpretation Comments Globulin (test code = Globulin) 3.3 2.0-4.0 [facility] HospitalNjpoqbtYSGDACNSQZBV8393-99-14 18:46:00 Test Item Value Reference Range Interpretation Comments eGFR (test code = eGFR) 99 [facility] HospitalDvjfvmfUFCZBJCLXRFI7487-92-15 18:46:00 Test Item Value Reference Range Interpretation Comments Calcium Lvl (test code = Calcium Lvl) 9.0 8.5-10.5 [facility] HospitalLyoimzpLIBHNALTSAXV8432-57-95 18:46:00 Test Item Value Reference Range Interpretation Comments Chloride Lvl (test code = Chloride Lvl) 106 95-109 [facility] HospitalYsvjwhgKOGNCIOYVVLC4658-83-41 18:46:00 Test Item Value Reference Range Interpretation Comments Creatinine Lvl (test code = Creatinine 0.9 0.5-1.4 Lvl) [facility] HospitalNjuhtbrXEMBOXBXGCSR7414-98-79 18:46:00 Test Item Value Reference Range Interpretation Comments Potassium Lvl (test code = Potassium 4.2 3.5-5.1 Lvl) [facility] HospitalUonsmgzIEGNZRKYMTJR1144-24-06 18:46:00 Test Item Value Reference Range Interpretation Comments Sodium Lvl (test code = Sodium Lvl) 139 135-145 [facility] HospitalKregxhnETTOQCYMANEE2159-36-59 18:46:00 Test Item Value Reference Range Interpretation Comments CO2 (test code = CO2) 24 24-32 [facility] HospitalApmsadbWBJXCKGPDEER3190-31-71 18:46:00 Test Item Value Reference Range Interpretation Comments BUN (test code = BUN) 16 7-22 [facility] HospitalTrqnjcaABBKWCGPTMUR0468-18-01 18:46:00 Test Item Value Reference Range Interpretation Comments Glucose Lvl (test code = Glucose Lvl) 141 70-99 [facility] HospitalXnmkvslASTCGKXDORWY7012-44-77 18:46:00 Test Item Value Reference Range Interpretation Comments Albumin Lvl (test code = Albumin Lvl) 3.6 3.5-5.0 [facility] HospitalGuhtolqMUYRLKQFBSFC4526-09-51 18:46:00 Test Item Value Reference Range Interpretation Comments Alk Phos (test code = Alk Phos) 65 39-136 [facility] HospitalPcejtfwEMDKYVLEZADZ8976-20-47 18:46:00 Test Item Value Reference Range Interpretation Comments Bili Total (test code = Bili Total) 0.3 0.2-1.3 [facility] HospitalExbzltvKGLLXKIWMMRY4661-24-26 18:46:00 Test Item Value Reference Range Interpretation Comments ALT (test code = ALT) 100 See_Comment [Auto mated message] The system which ge nerated this result transmit elizabeth reference range : <=65. The reference range was not used to interpr et this result as margaret l/abnormal. [facility] HospitalHaljdelLQUKINCEHQHO7460-85-44 18:46:00 Test Item Value Reference Range Interpretation Comments AST (test code = AST) 53 See_Comment [Auto mated message] The system which ge nerated this result transmit elizabeth reference range : <=37. The reference range was not used to interpr et this result as margaret l/abnormal. [facility] HospitalHqwpvqiBAZEAOBAQCJJ7107-91-83 18:46:00 Test Item Value Reference Range Interpretation Comments Total Protein (test code = Total 6.9 6.4-8.4 Protein) [facility]ZzemobwLWODHRBYUO3860-34-46 18:46:00 Test Item Value Reference Range Interpretation Comments Eosinophils (test code = 4.2 See_Comment [A utomated message] The Eosinophils) system which ge nerated this result tra nsmitted reference range : <=4.0. The reference r mitra was not used to int erpret this result as normal/abnormal . [facility] CenterSmdlyknLTASTIPTBK4288-17-40 18:46:00 Test Item Value Reference Range Interpretation Comments Segs (test code = Segs) 56.4 45.0-75.0 [facility] CenterUhimoeqQZNPQSJXCC0927-44-62 18:46:00 Test Item Value Reference Range Interpretation Comments Monocytes (test code = Monocytes) 10.3 2.0-12.0 [facility] CenterZltfohcPOEUASVDGE9377-69-69 18:46:00 Test Item Value Reference Range Interpretation Comments Lymphocytes (test code = Lymphocytes) 28.0 20.0-40.0 [facility] CenterWylkgyoLMMFFYUOZG3731-92-45 18:46:00 Test Item Value Reference Range Interpretation Comments Monocytes # (test code 0.5 See_Comment [Aut omated message] The = Monocytes #) system which generated this result tra nsmitted reference range : <=0.8. The reference r mitra was not used to int erpret this result as normal/abnormal . [facility] CenterZkxdhwmVOQFIEVNEA6112-48-66 18:46:00 Test Item Value Reference Range Interpretation Comments Basophils (test code = 1.1 See_Comment [Aut omated message] The Basophils) system which ge nerated this result tra nsmitted reference range : <=1.0. The reference r mitra was not used to int erpret this result as normal/abnormal . [facility] CenterGjmptfkANZPQULOAQ3438-82-28 18:46:00 Test Item Value Reference Range Interpretation Comments Lymphocytes # (test code = Lymphocytes 1.5 1.0-5.5 #) [facility] CenterKagqqdkNRDXRNGGDA5191-40-15 18:46:00 Test Item Value Reference Range Interpretation Comments Segs-Bands # (test code = Segs-Bands #) 2.9 1.5-8.1 [facility] CenterLiyftypKLNTEXOMJE8355-61-95 18:46:00 Test Item Value Reference Range Interpretation Comments Eosinophils # (test code 0.2 See_Comment [A utomated message] The = Eosinophils #) system whic h generated this result tra nsmitted reference range : <=0.5. The reference r mitra was not used to int erpret this result as normal/abnormal . [facility] CenterAqwxqzfGXEQJGAFXO8290-18-52 18:46:00 Test Item Value Reference Range Interpretation Comments Basophils # (test code 0.1 See_Comment [Aut omated message] The = Basophils #) system which generated this result tra nsmitted reference range : <=0.2. The reference r mitra was not used to int erpret this result as normal/abnormal . [facility] CenterXscxplePCFQMWRWNJ0655-93-98 18:46:00 Test Item Value Reference Range Interpretation Comments PT (test code = PT) 11.2 s 12.0-14.7 [facility] CenterYnztcpwLUKNEMBLMH1328-49-45 18:46:00 Test Item Value Reference Range Interpretation Comments INR (test code = INR) 0.82 0.85-1.17 [facility] CenterUpxptndDPTBPJQZVP3803-08-79 18:46:00 Test Item Value Reference Range Interpretation Comments PTT (test code = PTT) 28.6 s 22.9-35.8 [facility] CenterCjrqlcdZJPMFRICST0347-19-56 18:46:00 Test Item Value Reference Range Interpretation Comments MPV (test code = MPV) 8.1 7.4-10.4 [facility] CenterRqzlsukGLXUWRDMLC3109-21-29 18:46:00 Test Item Value Reference Range Interpretation Comments Platelet (test code = Platelet) 301 133-450 [facility] CenterBmlemccSFVXHQSPXY0627-91-89 18:46:00 Test Item Value Reference Range Interpretation Comments RDW (test code = RDW) 14.5 11.5-14.5 [facility] CenterMujwwumJCAELTJAWI9998-89-46 18:46:00 Test Item Value Reference Range Interpretation Comments RBC (test code = RBC) 4.84 4.70-6.10 [facility] CenterAgrbscjMKNZDIOZOV4122-64-68 18:46:00 Test Item Value Reference Range Interpretation Comments Hgb (test code = Hgb) 14.4 14.0-18.0 [facility] CenterRhdgdjbARQBTWGRVN7147-49-40 18:46:00 Test Item Value Reference Range Interpretation Comments WBC (test code = WBC) 5.2 3.7-10.4 [facility] CenterKsggcobJHKROMSWMD1237-05-39 18:46:00 Test Item Value Reference Range Interpretation Comments MCH (test code = MCH) 29.8 pg 27.0-31.0 [facility] CenterCbtucrkHQSVQHJVSC5518-51-56 18:46:00 Test Item Value Reference Range Interpretation Comments MCV (test code = MCV) 92.0 80.0-94.0 [facility] CenterVvmwjweKQYDVDWZKI8647-88-44 18:46:00 Test Item Value Reference Range Interpretation Comments Hct (test code = Hct) 44.5 42.0-54.0 [facility] CenterLbousntWARRYQGLBF1414-47-89 18:46:00 Test Item Value Reference Range Interpretation Comments MCHC (test code = MCHC) 32.4 32.0-36.0 [facility]qxsxbrLHRXXVGIEK3830-21-49 18:46:00 Test Item Value Reference Range Interpretation Comments [place]-Hep C Ab (test Negative *NA*(07/22/14 code = [place]-Hep C 1:46 PM) Ab) [facility] AND [id number] 18:46:00 Test Item Value Reference Range Interpretation Comments UA Urobilinogen (test code = UA <=1.0 mg/dL 0.1-1.0 Urobilinogen) [facility] AND [id number] 18:46:00 Test Item Value Reference Range Interpretation Comments UA Sq Epi (test code = UA Sq Epi) None Seen [facility] AND [id number] 18:46:00 Test Item Value Reference Range Interpretation Comments UA Leuk Est (test Negative (07/22/14 1:46 code = UA Leuk Est) PM) [facility] AND [id number] 18:46:00 Test Item Value Reference Range Interpretation Comments UA Nitrite (test code Negative (07/22/14 1:46 = UA Nitrite) PM) [facility] AND [id number] 18:46:00 Test Item Value Reference Range Interpretation Comments UA Blood (test code = Negative (07/22/14 1:46 UA Blood) PM) [facility] AND [id number] 18:46:00 Test Item Value Reference Range Interpretation Comments UA Ketones (test code = UA Negative mg/dL Ketones) [facility] AND [id number] 18:46:00 Test Item Value Reference Range Interpretation Comments UA Bili (test code = Negative *NA*(07/22/14 UA Bili) 1:46 PM) [facility] AND [id number] 18:46:00 Test Item Value Reference Range Interpretation Comments UA Bacteria (test code = UA Occasional /HPF Bacteria) [facility] AND [id number] 18:46:00 Test Item Value Reference Range Interpretation Comments UA RBC (test code = no gt See_Comment [Automa elizabeth message] The UA RBC) system which ge nerated this result transmit elizabeth reference range : <=2. The reference range was not used to interpr et this result as margaret l/abnormal. [facility] AND [id number] 18:46:00 Test Item Value Reference Range Interpretation Comments UA WBC (test code = 1 See_Comment [Automa elizabeth message] The UA WBC) system which ge nerated this result transmit elizabeth reference range : <=5. The reference range was not used to interpr et this result as margaret l/abnormal. [facility] AND [id number] 18:46:00 Test Item Value Reference Range Interpretation Comments UA Glucose (test code = UA Glucose) 30 mg/dL [facility] AND [id number] 18:46:00 Test Item Value Reference Range Interpretation Comments UA Protein (test code = UA Negative mg/dL Protein) [facility] AND [id number] 18:46:00 Test Item Value Reference Range Interpretation Comments UA pH (test code = UA pH) 6.5 5.0-8.0 [facility] AND [id number] 18:46:00 Test Item Value Reference Range Interpretation Comments UA Turbidity (test code = Clear (07/22/14 1:46 UA Turbidity) PM) [facility] AND [id number] 18:46:00 Test Item Value Reference Range Interpretation Comments UA Spec Grav (test code = UA Spec Grav) 1.010 [facility] AND [id number] 18:46:00 Test Item Value Reference Range Interpretation Comments UA Color (test code = Light Yellow UA Color) *NA*(07/22/14 1:46 PM) [facility] [id number] 18:46:00 Test Item Value Reference Range Interpretation Comments Magnesium Lvl (test code = Magnesium 1.8 1.8-2.4 Lvl) [facility]XnnkovjMAKHJDZFHGXY1365-01-55 18:46:00 Test Item Value Reference Range Interpretation Comments AGAP (test code = AGAP) 13.2 10.0-20.0 [facility] HospitalJhxctqeLBXCEITVHEWI0504-69-75 18:46:00 Test Item Value Reference Range Interpretation Comments B/C Ratio (test code = B/C Ratio) 18 6-25 [facility] HospitalXiwilnzVAVFFQQNYVUP1299-37-09 18:46:00 Test Item Value Reference Range Interpretation Comments A/G Ratio (test code = A/G Ratio) 1.1 0.7-1.6 [facility] HospitalBlriuytKYBGYGMEAHUV2084-34-61 18:46:00 Test Item Value Reference Range Interpretation Comments Globulin (test code = Globulin) 3.3 2.0-4.0 [facility] HospitalVvqrxqjCYHSUYOLCLLB5914-05-39 18:46:00 Test Item Value Reference Range Interpretation Comments eGFR (test code = eGFR) 99 [facility] HospitalQjkyvoaFSFRRPIEKNAY3780-49-58 18:46:00 Test Item Value Reference Range Interpretation Comments Calcium Lvl (test code = Calcium Lvl) 9.0 8.5-10.5 [facility] HospitalGiwsfxcEBHFASYPXEBA0964-03-08 18:46:00 Test Item Value Reference Range Interpretation Comments Chloride Lvl (test code = Chloride Lvl) 106 95-109 [facility] HospitalYcwnedzQTSPSWOYUTKS8577-49-79 18:46:00 Test Item Value Reference Range Interpretation Comments Creatinine Lvl (test code = Creatinine 0.9 0.5-1.4 Lvl) [facility] HospitalZbvoatzZAVUUNRHFAKC5048-99-30 18:46:00 Test Item Value Reference Range Interpretation Comments Potassium Lvl (test code = Potassium 4.2 3.5-5.1 Lvl) [facility] HospitalVqlwnpeLLSTOFELWPNE2974-32-17 18:46:00 Test Item Value Reference Range Interpretation Comments Sodium Lvl (test code = Sodium Lvl) 139 135-145 [facility] HospitalShfzpgnKIURYIYOLRUP6613-58-82 18:46:00 Test Item Value Reference Range Interpretation Comments CO2 (test code = CO2) 24 24-32 [facility] HospitalEngrluxNOYLUPUMKRYS7579-16-15 18:46:00 Test Item Value Reference Range Interpretation Comments BUN (test code = BUN) 16 7-22 [facility] HospitalJlebukqFAIRVZDGDTOU5106-85-04 18:46:00 Test Item Value Reference Range Interpretation Comments Glucose Lvl (test code = Glucose Lvl) 141 70-99 [facility] HospitalMumbiriFBCBCUXTDVOW2969-57-13 18:46:00 Test Item Value Reference Range Interpretation Comments Albumin Lvl (test code = Albumin Lvl) 3.6 3.5-5.0 [facility] HospitalTcqormlPPEHANNHCURK6142-67-83 18:46:00 Test Item Value Reference Range Interpretation Comments Alk Phos (test code = Alk Phos) 65 39-136 [facility] HospitalYadxenwJQWASOYZVDGQ5885-61-34 18:46:00 Test Item Value Reference Range Interpretation Comments Bili Total (test code = Bili Total) 0.3 0.2-1.3 [facility] HospitalSonhobqEPNWGDFASOZT9198-88-35 18:46:00 Test Item Value Reference Range Interpretation Comments ALT (test code = ALT) 100 See_Comment [Auto mated message] The system which ge nerated this result transmit elizabeth reference range : <=65. The reference range was not used to interpr et this result as margaret l/abnormal. [facility] HospitalJewqfioXEIQCYTJIUUI0415-51-52 18:46:00 Test Item Value Reference Range Interpretation Comments AST (test code = AST) 53 See_Comment [Auto mated message] The system which ge nerated this result transmit elizabeth reference range : <=37. The reference range was not used to interpr et this result as margaret l/abnormal. [facility] HospitalEkjyclwADDGIGYXQBTN0945-05-60 18:46:00 Test Item Value Reference Range Interpretation Comments Total Protein (test code = Total 6.9 6.4-8.4 Protein) [facility] CenterMcocutsZMYRLBWIXE6730-60-39 18:46:00 Test Item Value Reference Range Interpretation Comments Eosinophils (test code = 4.2 See_Comment [A utomated message] The Eosinophils) system which ge nerated this result tra nsmitted reference range : <=4.0. The reference r mitra was not used to int erpret this result as normal/abnormal . [facility] CenterUceuiikMZWCBEPGTE7481-84-54 18:46:00 Test Item Value Reference Range Interpretation Comments Segs (test code = Segs) 56.4 45.0-75.0 [facility] CenterMxsbiijNRWLREKGLB4067-89-79 18:46:00 Test Item Value Reference Range Interpretation Comments Monocytes (test code = Monocytes) 10.3 2.0-12.0 [facility] CenterMidomimWNATQAPQUL2377-01-50 18:46:00 Test Item Value Reference Range Interpretation Comments Lymphocytes (test code = Lymphocytes) 28.0 20.0-40.0 [facility] CenterQweovgfSCLVURSYVX9502-41-82 18:46:00 Test Item Value Reference Range Interpretation Comments Monocytes # (test code 0.5 See_Comment [Aut omated message] The = Monocytes #) system which generated this result tra nsmitted reference range : <=0.8. The reference r mitra was not used to int erpret this result as normal/abnormal . [facility] CenterWlohkucQRMOJOWILO5060-68-88 18:46:00 Test Item Value Reference Range Interpretation Comments Basophils (test code = 1.1 See_Comment [Aut omated message] The Basophils) system which ge nerated this result tra nsmitted reference range : <=1.0. The reference r mitra was not used to int erpret this result as normal/abnormal . [facility] CenterSijweuaWYSCURNPCF7607-34-65 18:46:00 Test Item Value Reference Range Interpretation Comments Lymphocytes # (test code = Lymphocytes 1.5 1.0-5.5 #) [facility] CenterLudjohlJSZPFUIRVF3172-59-69 18:46:00 Test Item Value Reference Range Interpretation Comments Segs-Bands # (test code = Segs-Bands #) 2.9 1.5-8.1 [facility] CenterUymtopsOLIOCQCQTI1218-44-99 18:46:00 Test Item Value Reference Range Interpretation Comments Eosinophils # (test code 0.2 See_Comment [A utomated message] The = Eosinophils #) system whic h generated this result tra nsmitted reference range : <=0.5. The reference r mitra was not used to int erpret this result as normal/abnormal . [facility] CenterYlmbrxqOYKMXFJRMI3243-34-71 18:46:00 Test Item Value Reference Range Interpretation Comments Basophils # (test code 0.1 See_Comment [Aut omated message] The = Basophils #) system which generated this result tra nsmitted reference range : <=0.2. The reference r mitra was not used to int erpret this result as normal/abnormal . [facility] CenterQwwocsaXGYQPEYTNH3160-66-39 18:46:00 Test Item Value Reference Range Interpretation Comments PT (test code = PT) 11.2 s 12.0-14.7 [facility] CenterUeeovkfGZSMZYDJYP0008-89-21 18:46:00 Test Item Value Reference Range Interpretation Comments INR (test code = INR) 0.82 0.85-1.17 [facility] CenterXxqmffaPYDPOPGHSE3513-99-98 18:46:00 Test Item Value Reference Range Interpretation Comments PTT (test code = PTT) 28.6 s 22.9-35.8 [facility] CenterSnefkwiHKKGTPVZVI8868-04-24 18:46:00 Test Item Value Reference Range Interpretation Comments MPV (test code = MPV) 8.1 7.4-10.4 [facility] CenterYkgwiacBGVSAQHPYV3188-88-98 18:46:00 Test Item Value Reference Range Interpretation Comments Platelet (test code = Platelet) 301 133-450 [facility] CenterOmakfczFCMHQQGARV9113-28-85 18:46:00 Test Item Value Reference Range Interpretation Comments RDW (test code = RDW) 14.5 11.5-14.5 [facility]YhxebpfIHBHLMKXSS0607-15-68 18:46:00 Test Item Value Reference Range Interpretation Comments RBC (test code = RBC) 4.84 4.70-6.10 [facility]PrmxlztKQCKZFYLVN6114-13-73 18:46:00 Test Item Value Reference Range Interpretation Comments Hgb (test code = Hgb) 14.4 14.0-18.0 [facility]KtwtybiRTWXDGFUPH1725-07-93 18:46:00 Test Item Value Reference Range Interpretation Comments WBC (test code = WBC) 5.2 3.7-10.4 [facility] HospitalGbnhmnuYASZEXADLZ2212-07-17 18:46:00 Test Item Value Reference Range Interpretation Comments MCH (test code = MCH) 29.8 pg 27.0-31.0 [facility] HospitalTozupwqPYDQEUMQHM5319-73-44 18:46:00 Test Item Value Reference Range Interpretation Comments MCV (test code = MCV) 92.0 80.0-94.0 [facility]PxizybwCMGHJZGWYZ0888-06-64 18:46:00 Test Item Value Reference Range Interpretation Comments Hct (test code = Hct) 44.5 42.0-54.0 [facility]XddvqnmKAFDTUQFVL0985-53-22 18:46:00 Test Item Value Reference Range Interpretation Comments MCHC (test code = MCHC) 32.4 32.0-36.0 [facility] NortheastOlngusgRHJNLTFHUU0043-95-79 18:46:00 Test Item Value Reference Range Interpretation Comments [place]-Hep C Ab (test Negative *NA*(07/22/14 code = [place]-Hep C 1:46 PM) Ab) [facility] AND [id number] 18:46:00 Test Item Value Reference Range Interpretation Comments UA Urobilinogen (test code = UA <=1.0 mg/dL 0.1-1.0 Urobilinogen) [facility] [id number] 18:46:00 Test Item Value Reference Range Interpretation Comments UA Sq Epi (test code = UA Sq Epi) None Seen [facility] AND [id number] 18:46:00 Test Item Value Reference Range Interpretation Comments UA Leuk Est (test Negative (07/22/14 1:46 code = UA Leuk Est) PM) [facility] AND [id number] 18:46:00 Test Item Value Reference Range Interpretation Comments UA Nitrite (test code Negative (07/22/14 1:46 = UA Nitrite) PM) [facility] AND [id number] 18:46:00 Test Item Value Reference Range Interpretation Comments UA Blood (test code = Negative (07/22/14 1:46 UA Blood) PM) [facility] AND [id number] 18:46:00 Test Item Value Reference Range Interpretation Comments UA Ketones (test code = UA Negative mg/dL Ketones) [facility] AND [id number] 18:46:00 Test Item Value Reference Range Interpretation Comments UA Bili (test code = Negative *NA*(07/22/14 UA Bili) 1:46 PM) [facility] AND [id number] 18:46:00 Test Item Value Reference Range Interpretation Comments UA Bacteria (test code = UA Occasional /HPF Bacteria) [facility] AND [id number] 18:46:00 Test Item Value Reference Range Interpretation Comments UA RBC (test code = no gt See_Comment [Automa elizabeth message] The UA RBC) system which ge nerated this result transmit elizabeth reference range : <=2. The reference range was not used to interpr et this result as margaret l/abnormal. [facility] AND [id number] 18:46:00 Test Item Value Reference Range Interpretation Comments UA WBC (test code = 1 See_Comment [Automa elizabeth message] The UA WBC) system which ge nerated this result transmit elizabeth reference range : <=5. The reference range was not used to interpr et this result as margaret l/abnormal. [facility] AND [id number] 18:46:00 Test Item Value Reference Range Interpretation Comments UA Glucose (test code = UA Glucose) 30 mg/dL [facility] AND [id number] 18:46:00 Test Item Value Reference Range Interpretation Comments UA Protein (test code = UA Negative mg/dL Protein) [facility] AND [id number] 18:46:00 Test Item Value Reference Range Interpretation Comments UA pH (test code = UA pH) 6.5 5.0-8.0 [facility] [id number] 18:46:00 Test Item Value Reference Range Interpretation Comments UA Turbidity (test code = Clear (07/22/14 1:46 UA Turbidity) PM) [facility] [id number] 18:46:00 Test Item Value Reference Range Interpretation Comments UA Spec Grav (test code = UA Spec Grav) 1.010 [facility] AND [id number] 18:46:00 Test Item Value Reference Range Interpretation Comments UA Color (test code = Light Yellow UA Color) *NA*(07/22/14 1:46 PM) [facility]annCHEM NJQLM3423-20-54 18:46:00 Test Item Value Reference Range Interpretation Comments Magnesium Lvl (test code = Magnesium 1.8 1.8-2.4 Lvl) [facility] HospitalLpbvwekEQBLOALPFAOF1710-95-23 18:46:00 Test Item Value Reference Range Interpretation Comments AGAP (test code = AGAP) 13.2 10.0-20.0 [facility] HospitalUjdkdwiUGQYGWOTKITF3008-05-00 18:46:00 Test Item Value Reference Range Interpretation Comments B/C Ratio (test code = B/C Ratio) 18 6-25 [facility] HospitalVhqiahfJPVXLZGWODZX8394-72-58 18:46:00 Test Item Value Reference Range Interpretation Comments A/G Ratio (test code = A/G Ratio) 1.1 0.7-1.6 [facility] HospitalAblmmryPVWVVGDFYTXB3056-57-25 18:46:00 Test Item Value Reference Range Interpretation Comments Globulin (test code = Globulin) 3.3 2.0-4.0 [facility] HospitalZcpfsecHALAOPCSLORU1369-38-17 18:46:00 Test Item Value Reference Range Interpretation Comments eGFR (test code = eGFR) 99 [facility] HospitalXnscpxgLIWMNOUOJLXZ9589-12-93 18:46:00 Test Item Value Reference Range Interpretation Comments Calcium Lvl (test code = Calcium Lvl) 9.0 8.5-10.5 [facility] HospitalKzxqutuTCPYHIEGMSBA9224-24-28 18:46:00 Test Item Value Reference Range Interpretation Comments Chloride Lvl (test code = Chloride Lvl) 106 95-109 [facility] HospitalOgnonbvQFQGWTDPAWXM2963-23-31 18:46:00 Test Item Value Reference Range Interpretation Comments Creatinine Lvl (test code = Creatinine 0.9 0.5-1.4 Lvl) [facility] HospitalTgmnotqULPZNBPKYPQB0056-72-04 18:46:00 Test Item Value Reference Range Interpretation Comments Potassium Lvl (test code = Potassium 4.2 3.5-5.1 Lvl) [facility] HospitalBoblvreQCOWRFVMGIJD3404-40-04 18:46:00 Test Item Value Reference Range Interpretation Comments Sodium Lvl (test code = Sodium Lvl) 139 135-145 [facility] HospitalWztffobLHWDNDPRYCNM6835-68-97 18:46:00 Test Item Value Reference Range Interpretation Comments CO2 (test code = CO2) 24 24-32 [facility] HospitalIlyaonzVDDOOGTVUUAM8647-63-76 18:46:00 Test Item Value Reference Range Interpretation Comments BUN (test code = BUN) 16 7-22 [facility] HospitalAogqwkwTRZFEMNDWLEL7173-72-44 18:46:00 Test Item Value Reference Range Interpretation Comments Glucose Lvl (test code = Glucose Lvl) 141 70-99 [facility] HospitalZkkoirsFXOUCPPSTPHL1925-13-29 18:46:00 Test Item Value Reference Range Interpretation Comments Albumin Lvl (test code = Albumin Lvl) 3.6 3.5-5.0 [facility] HospitalCrubovlARNJLNLIOWFX0705-70-17 18:46:00 Test Item Value Reference Range Interpretation Comments Alk Phos (test code = Alk Phos) 65 39-136 [facility] HospitalUrhzzjgPYYZVYVPGMRG7920-00-76 18:46:00 Test Item Value Reference Range Interpretation Comments Bili Total (test code = Bili Total) 0.3 0.2-1.3 [facility] HospitalLnfsdwsNPHWBZZFDYIK2232-47-87 18:46:00 Test Item Value Reference Range Interpretation Comments ALT (test code = ALT) 100 See_Comment [Auto mated message] The system which ge nerated this result transmit elizabeth reference range : <=65. The reference range was not used to interpr et this result as margaret l/abnormal. [facility] HospitalNjgwhczAFWDYHHPPJFO3495-63-79 18:46:00 Test Item Value Reference Range Interpretation Comments AST (test code = AST) 53 See_Comment [Auto mated message] The system which ge nerated this result transmit elizabeth reference range : <=37. The reference range was not used to interpr et this result as margaret l/abnormal. [facility] HospitalKrnllraMHTRIYOWIZES9137-02-29 18:46:00 Test Item Value Reference Range Interpretation Comments Total Protein (test code = Total 6.9 6.4-8.4 Protein) [facility] CenterJegcfrlTWTEESVSSM9946-23-03 18:46:00 Test Item Value Reference Range Interpretation Comments Eosinophils (test code = 4.2 See_Comment [A utomated message] The Eosinophils) system which ge nerated this result tra nsmitted reference range : <=4.0. The reference r mitra was not used to int erpret this result as normal/abnormal . [facility] CenterJyghbftJWVZBRXGHJ8338-85-87 18:46:00 Test Item Value Reference Range Interpretation Comments Segs (test code = Segs) 56.4 45.0-75.0 [facility] CenterMwfcthhIGAZEXSFEB1561-10-66 18:46:00 Test Item Value Reference Range Interpretation Comments Monocytes (test code = Monocytes) 10.3 2.0-12.0 [facility] CenterAtuvdsxMTITJZCTSR5438-27-65 18:46:00 Test Item Value Reference Range Interpretation Comments Lymphocytes (test code = Lymphocytes) 28.0 20.0-40.0 [facility] CenterFdjlsqmZJMCGATNVW0706-16-65 18:46:00 Test Item Value Reference Range Interpretation Comments Monocytes # (test code 0.5 See_Comment [Aut omated message] The = Monocytes #) system which generated this result tra nsmitted reference range : <=0.8. The reference r mitra was not used to int erpret this result as normal/abnormal . [facility] CenterLbelcupGVJQCPEKPG9548-03-50 18:46:00 Test Item Value Reference Range Interpretation Comments Basophils (test code = 1.1 See_Comment [Aut omated message] The Basophils) system which ge nerated this result tra nsmitted reference range : <=1.0. The reference r mitra was not used to int erpret this result as normal/abnormal . [facility] CenterGmvmtxfYLAZYQAZCR0670-14-00 18:46:00 Test Item Value Reference Range Interpretation Comments Lymphocytes # (test code = Lymphocytes 1.5 1.0-5.5 #) [facility] CenterWmervixSZFUSIXLXA5238-18-42 18:46:00 Test Item Value Reference Range Interpretation Comments Segs-Bands # (test code = Segs-Bands #) 2.9 1.5-8.1 [facility] CenterGalaqbuXCSOLFOWVT0688-14-98 18:46:00 Test Item Value Reference Range Interpretation Comments Eosinophils # (test code 0.2 See_Comment [A utomated message] The = Eosinophils #) system whic h generated this result tra nsmitted reference range : <=0.5. The reference r mitra was not used to int erpret this result as normal/abnormal . [facility] CenterUlqfimtHYDAQYGNXO6702-55-91 18:46:00 Test Item Value Reference Range Interpretation Comments Basophils # (test code 0.1 See_Comment [Aut omated message] The = Basophils #) system which generated this result tra nsmitted reference range : <=0.2. The reference r mitra was not used to int erpret this result as normal/abnormal . [facility] CenterPpbffwuRSGAONUKTN6073-53-41 18:46:00 Test Item Value Reference Range Interpretation Comments PT (test code = PT) 11.2 s 12.0-14.7 [facility] CenterMreygmcODNXPJMMFS3605-05-61 18:46:00 Test Item Value Reference Range Interpretation Comments INR (test code = INR) 0.82 0.85-1.17 [facility] CenterNjlwdawTFLHCZXVNX2791-39-22 18:46:00 Test Item Value Reference Range Interpretation Comments PTT (test code = PTT) 28.6 s 22.9-35.8 [facility]SdnfxfbEHRYOCWPZQ1706-76-46 18:46:00 Test Item Value Reference Range Interpretation Comments MPV (test code = MPV) 8.1 7.4-10.4 [facility] CenterUvvhfgxLJSRILSMAT3153-98-25 18:46:00 Test Item Value Reference Range Interpretation Comments Platelet (test code = Platelet) 301 133-450 [facility] CenterHlmwniqQNRAICBZYP2163-69-76 18:46:00 Test Item Value Reference Range Interpretation Comments RDW (test code = RDW) 14.5 11.5-14.5 [facility] CenterXyxvccfNVZFJFFMZK3757-63-35 18:46:00 Test Item Value Reference Range Interpretation Comments RBC (test code = RBC) 4.84 4.70-6.10 [facility] CenterGevazltNCZSJPGMVI5104-64-68 18:46:00 Test Item Value Reference Range Interpretation Comments Hgb (test code = Hgb) 14.4 14.0-18.0 [facility] CenterKzhaedmORKLWZNXQQ8719-02-36 18:46:00 Test Item Value Reference Range Interpretation Comments WBC (test code = WBC) 5.2 3.7-10.4 [facility]ufdDJCFZKKPNC2512-95-58 18:46:00 Test Item Value Reference Range Interpretation Comments MCH (test code = MCH) 29.8 pg 27.0-31.0 [facility]evUVHJGYYHGI6478-77-16 18:46:00 Test Item Value Reference Range Interpretation Comments MCV (test code = MCV) 92.0 80.0-94.0 [facility] HospitalMkygwdeVGUCLVFURX3366-59-38 18:46:00 Test Item Value Reference Range Interpretation Comments Hct (test code = Hct) 44.5 42.0-54.0 [facility]NqcoteuHRGAUIRZKV6531-69-32 18:46:00 Test Item Value Reference Range Interpretation Comments MCHC (test code = MCHC) 32.4 32.0-36.0 [facility]PvvcoefFOEZXCKZLI0192-04-93 18:46:00 Test Item Value Reference Range Interpretation Comments [place]-Hep C Ab (test Negative *NA*(07/22/14 code = [place]-Hep C 1:46 PM) Ab) [facility] AND [id number] 18:46:00 Test Item Value Reference Range Interpretation Comments UA Urobilinogen (test code = UA <=1.0 mg/dL 0.1-1.0 Urobilinogen) [facility] AND [id number] 18:46:00 Test Item Value Reference Range Interpretation Comments UA Sq Epi (test code = UA Sq Epi) None Seen [facility] AND [id number] 18:46:00 Test Item Value Reference Range Interpretation Comments UA Leuk Est (test Negative (07/22/14 1:46 code = UA Leuk Est) PM) [facility] AND [id number] 18:46:00 Test Item Value Reference Range Interpretation Comments UA Nitrite (test code Negative (07/22/14 1:46 = UA Nitrite) PM) [facility] AND [id number] 18:46:00 Test Item Value Reference Range Interpretation Comments UA Blood (test code = Negative (07/22/14 1:46 UA Blood) PM) [facility] AND [id number] 18:46:00 Test Item Value Reference Range Interpretation Comments UA Ketones (test code = UA Negative mg/dL Ketones) [facility] AND [id number] 18:46:00 Test Item Value Reference Range Interpretation Comments UA Bili (test code = Negative *NA*(07/22/14 UA Bili) 1:46 PM) [facility] [id number] 18:46:00 Test Item Value Reference Range Interpretation Comments UA Bacteria (test code = UA Occasional /HPF Bacteria) [facility] [id number] 18:46:00 Test Item Value Reference Range Interpretation Comments UA RBC (test code = no gt See_Comment [Automa elizabeth message] The UA RBC) system which ge nerated this result transmit elizabeth reference range : <=2. The reference range was not used to interpr et this result as margaret l/abnormal. [facility] AND [id number] 18:46:00 Test Item Value Reference Range Interpretation Comments UA WBC (test code = 1 See_Comment [Automa elizabeth message] The UA WBC) system which ge nerated this result transmit elizabeth reference range : <=5. The reference range was not used to interpr et this result as margaret l/abnormal. [facility] [id number] 18:46:00 Test Item Value Reference Range Interpretation Comments UA Glucose (test code = UA Glucose) 30 mg/dL [facility] AND [id number] 18:46:00 Test Item Value Reference Range Interpretation Comments UA Protein (test code = UA Negative mg/dL Protein) [facility] AND [id number] 18:46:00 Test Item Value Reference Range Interpretation Comments UA pH (test code = UA pH) 6.5 5.0-8.0 [facility] [id number] 18:46:00 Test Item Value Reference Range Interpretation Comments UA Turbidity (test code = Clear (07/22/14 1:46 UA Turbidity) PM) [facility] [id number] 18:46:00 Test Item Value Reference Range Interpretation Comments UA Spec Grav (test code = UA Spec Grav) 1.010 [facility] AND [id number] 18:46:00 Test Item Value Reference Range Interpretation Comments UA Color (test code = Light Yellow UA Color) *NA*(07/22/14 1:46 PM) [facility]WMFUW0825-57-29 18:46:00 Test Item Value Reference Range Interpretation Comments Magnesium Lvl (test code = Magnesium 1.8 1.8-2.4 Lvl) [facility] HospitalThvpxpaGEZEMGXXBJGB7047-38-62 18:46:00 Test Item Value Reference Range Interpretation Comments AGAP (test code = AGAP) 13.2 10.0-20.0 [facility] HospitalBgxcatjVUPXENGMIEXY7833-68-11 18:46:00 Test Item Value Reference Range Interpretation Comments B/C Ratio (test code = B/C Ratio) 18 6-25 [facility] HospitalNadorglHFNBFXJXOGRD7248-91-14 18:46:00 Test Item Value Reference Range Interpretation Comments A/G Ratio (test code = A/G Ratio) 1.1 0.7-1.6 [facility] HospitalMunidrgHRGMRVINHALG2699-40-77 18:46:00 Test Item Value Reference Range Interpretation Comments Globulin (test code = Globulin) 3.3 2.0-4.0 [facility] HospitalUyqlwczGVVGYREUPHQN0809-83-04 18:46:00 Test Item Value Reference Range Interpretation Comments eGFR (test code = eGFR) 99 [facility] HospitalDvoggmuFDEWWZWAHXAB0340-96-97 18:46:00 Test Item Value Reference Range Interpretation Comments Calcium Lvl (test code = Calcium Lvl) 9.0 8.5-10.5 [facility] HospitalXxiyisoBOZPCLNLDRFQ9120-95-57 18:46:00 Test Item Value Reference Range Interpretation Comments Chloride Lvl (test code = Chloride Lvl) 106 95-109 [facility] HospitalDlemadeMMMTLBXBJESO2785-94-21 18:46:00 Test Item Value Reference Range Interpretation Comments Creatinine Lvl (test code = Creatinine 0.9 0.5-1.4 Lvl) [facility] HospitalMbbyrhfTQNSZLINIHHC4202-59-44 18:46:00 Test Item Value Reference Range Interpretation Comments Potassium Lvl (test code = Potassium 4.2 3.5-5.1 Lvl) [facility] HospitalHvszlbxUZVODPYNBEMA3250-57-79 18:46:00 Test Item Value Reference Range Interpretation Comments Sodium Lvl (test code = Sodium Lvl) 139 135-145 [facility] HospitalUwoekzqMZHPKBUSSZVZ5749-08-93 18:46:00 Test Item Value Reference Range Interpretation Comments CO2 (test code = CO2) 24 24-32 [facility] HospitalNbhjoufOGODTIDENPMM2325-57-94 18:46:00 Test Item Value Reference Range Interpretation Comments BUN (test code = BUN) 16 7-22 [facility] HospitalSespfyvJXXFQGFRXXBZ3615-94-52 18:46:00 Test Item Value Reference Range Interpretation Comments Glucose Lvl (test code = Glucose Lvl) 141 70-99 [facility] HospitalCmkeimlIBLBYBIAAAKG1856-80-25 18:46:00 Test Item Value Reference Range Interpretation Comments Albumin Lvl (test code = Albumin Lvl) 3.6 3.5-5.0 [facility] HospitalCupbfjvQHJISDZBXNPW4232-33-29 18:46:00 Test Item Value Reference Range Interpretation Comments Alk Phos (test code = Alk Phos) 65 39-136 [facility] HospitalTyuvrntYJCYRKIOOGIN6661-94-52 18:46:00 Test Item Value Reference Range Interpretation Comments Bili Total (test code = Bili Total) 0.3 0.2-1.3 [facility] HospitalPteltztIYRPRJBTYHIB9350-86-09 18:46:00 Test Item Value Reference Range Interpretation Comments ALT (test code = ALT) 100 See_Comment [Auto mated message] The system which ge nerated this result transmit elizabeth reference range : <=65. The reference range was not used to interpr et this result as margaret l/abnormal. [facility] HospitalVqhzvijIXQOCTBXGGGY6079-76-53 18:46:00 Test Item Value Reference Range Interpretation Comments AST (test code = AST) 53 See_Comment [Auto mated message] The system which ge nerated this result transmit elizabeth reference range : <=37. The reference range was not used to interpr et this result as margaret l/abnormal. [facility] HospitalQpzixrlEJMJOWHHWXNN9344-53-87 18:46:00 Test Item Value Reference Range Interpretation Comments Total Protein (test code = Total 6.9 6.4-8.4 Protein) [facility] CenterMdkcoqzLXOGLGLHBY3895-48-25 18:46:00 Test Item Value Reference Range Interpretation Comments Eosinophils (test code = 4.2 See_Comment [A utomated message] The Eosinophils) system which ge nerated this result tra nsmitted reference range : <=4.0. The reference r mitra was not used to int erpret this result as normal/abnormal . [facility] CenterTjrvgsxQODFDSDULO2852-11-32 18:46:00 Test Item Value Reference Range Interpretation Comments Segs (test code = Segs) 56.4 45.0-75.0 [facility] CenterXldjhjbGUNQSGRRHU2953-79-60 18:46:00 Test Item Value Reference Range Interpretation Comments Monocytes (test code = Monocytes) 10.3 2.0-12.0 [facility] CenterTkpppqdFWAYJLWCPF3650-11-57 18:46:00 Test Item Value Reference Range Interpretation Comments Lymphocytes (test code = Lymphocytes) 28.0 20.0-40.0 [facility] CenterJjhsrquSSWOAUKQVM0459-09-10 18:46:00 Test Item Value Reference Range Interpretation Comments Monocytes # (test code 0.5 See_Comment [Aut omated message] The = Monocytes #) system which generated this result tra nsmitted reference range : <=0.8. The reference r mitra was not used to int erpret this result as normal/abnormal . [facility] CenterHwvjakgVLLACLUPZO9134-25-24 18:46:00 Test Item Value Reference Range Interpretation Comments Basophils (test code = 1.1 See_Comment [Aut omated message] The Basophils) system which ge nerated this result tra nsmitted reference range : <=1.0. The reference r mitra was not used to int erpret this result as normal/abnormal . [facility] CenterQaaovxuPBQVGNCSOO2457-13-69 18:46:00 Test Item Value Reference Range Interpretation Comments Lymphocytes # (test code = Lymphocytes 1.5 1.0-5.5 #) [facility] CenterJtvhspjJQXQQNICWK1898-73-96 18:46:00 Test Item Value Reference Range Interpretation Comments Segs-Bands # (test code = Segs-Bands #) 2.9 1.5-8.1 [facility] CenterGcvvkjwQCMBHBGBJA8634-36-74 18:46:00 Test Item Value Reference Range Interpretation Comments Eosinophils # (test code 0.2 See_Comment [A utomated message] The = Eosinophils #) system whic h generated this result tra nsmitted reference range : <=0.5. The reference r mitra was not used to int erpret this result as normal/abnormal . [facility] CenterEqetjzzBSCCSACWYB5650-79-35 18:46:00 Test Item Value Reference Range Interpretation Comments Basophils # (test code 0.1 See_Comment [Aut omated message] The = Basophils #) system which generated this result tra nsmitted reference range : <=0.2. The reference r mitra was not used to int erpret this result as normal/abnormal . [facility] CenterThhrozzSACYCMVQYG0315-38-64 18:46:00 Test Item Value Reference Range Interpretation Comments PT (test code = PT) 11.2 s 12.0-14.7 [facility] CenterPqgbundEDCQQVWTBM9119-00-44 18:46:00 Test Item Value Reference Range Interpretation Comments INR (test code = INR) 0.82 0.85-1.17 [facility] CenterVyddtydNAAJRSKUNV0233-70-77 18:46:00 Test Item Value Reference Range Interpretation Comments PTT (test code = PTT) 28.6 s 22.9-35.8 [facility] CenterFbgbewnYIEWILBFOG8289-24-46 18:46:00 Test Item Value Reference Range Interpretation Comments MPV (test code = MPV) 8.1 7.4-10.4 [place] [id number] 18:46:00 Test Item Value Reference Range Interpretation Comments Platelet (test code = Platelet) 301 133-450 [facility] CenterSutjmrjXPKZVDQEGQ0584-34-78 18:46:00 Test Item Value Reference Range Interpretation Comments RDW (test code = RDW) 14.5 11.5-14.5 [facility] CenterPdcuowpZYKMOUNTAE7970-50-04 18:46:00 Test Item Value Reference Range Interpretation Comments RBC (test code = RBC) 4.84 4.70-6.10 [facility] CenterKdzqmtfLFXGIGXJPP2784-33-98 18:46:00 Test Item Value Reference Range Interpretation Comments Hgb (test code = Hgb) 14.4 14.0-18.0 [facility] CenterUadqiuaXIOEWOKEXA3977-70-09 18:46:00 Test Item Value Reference Range Interpretation Comments WBC (test code = WBC) 5.2 3.7-10.4 [facility] CenterJfxxypiYBPCGTMBEL8221-13-48 18:46:00 Test Item Value Reference Range Interpretation Comments MCH (test code = MCH) 29.8 pg 27.0-31.0 [facility] CenterWczsriwUMLETYENCJ8272-12-98 18:46:00 Test Item Value Reference Range Interpretation Comments MCV (test code = MCV) 92.0 80.0-94.0 [facility] CenterGuywcwfKENFHVYXTD3138-18-03 18:46:00 Test Item Value Reference Range Interpretation Comments Hct (test code = Hct) 44.5 42.0-54.0 [facility] CenterPyktdaqINEWZNLAVB6291-20-37 18:46:00 Test Item Value Reference Range Interpretation Comments MCHC (test code = MCHC) 32.4 32.0-36.0 [facility] WvjyhtvUGJQURRUFL0842-24-65 18:46:00 Test Item Value Reference Range Interpretation Comments [place]Hep C Ab (test Negative *NA*(07/22/14 code = [place]-Hep C 1:46 PM) Ab) [facility] [id number] 18:46:00 Test Item Value Reference Range Interpretation Comments UA Urobilinogen (test code = UA <=1.0 mg/dL 0.1-1.0 Urobilinogen) [facility] [id number] 18:46:00 Test Item Value Reference Range Interpretation Comments UA Sq Epi (test code = UA Sq Epi) None [facility]en [facility] [id number] 18:46:00 Test Item Value Reference Range Interpretation Comments UA Leuk Est (test Negative (07/22/14 1:46 code = UA Leuk Est) PM) [facility] [id number] 18:46:00 Test Item Value Reference Range Interpretation Comments UA Nitrite (test code Negative (07/22/14 1:46 = UA Nitrite) PM) [facility] [id number] 18:46:00 Test Item Value Reference Range Interpretation Comments UA Blood (test code = Negative (07/22/14 1:46 UA Blood) PM) [facility] [id number] 18:46:00 Test Item Value Reference Range Interpretation Comments UA Ketones (test code = UA Negative mg/dL Ketones) [facility] [id number] 18:46:00 Test Item Value Reference Range Interpretation Comments UA Bili (test code = Negative *NA*(07/22/14 UA Bili) 1:46 PM) [facility] [id number] 18:46:00 Test Item Value Reference Range Interpretation Comments UA Bacteria (test code = UA Occasional /HPF Bacteria) [facility] [id number] 18:46:00 Test Item Value Reference Range Interpretation Comments UA RBC (test code = no gt See_Comment [Automa elizabeth message] The UA RBC) system which ge nerated this result transmit elizabeth reference range : <=2. The reference range was not used to interpr et this result as margaret l/abnormal. [facility] AND [id number] 18:46:00 Test Item Value Reference Range Interpretation Comments UA WBC (test code = 1 See_Comment [Automa elizabeth message] The UA WBC) system which ge nerated this result transmit elizabeth reference range : <=5. The reference range was not used to interpr et this result as margaret l/abnormal. [facility] AND [id number] 18:46:00 Test Item Value Reference Range Interpretation Comments UA Glucose (test code = UA Glucose) 30 mg/dL [facility] AND [id number] 18:46:00 Test Item Value Reference Range Interpretation Comments UA Protein (test code = UA Negative mg/dL Protein) [facility] AND [id number] 18:46:00 Test Item Value Reference Range Interpretation Comments UA pH (test code = UA pH) 6.5 5.0-8.0 [facility] AND [id number] 18:46:00 Test Item Value Reference Range Interpretation Comments UA Turbidity (test code = Clear (07/22/14 1:46 UA Turbidity) PM) [facility] AND [id number] 18:46:00 Test Item Value Reference Range Interpretation Comments UA Spec Grav (test code = UA Spec Grav) 1.010 [facility] AND [id number] 18:46:00 Test Item Value Reference Range Interpretation Comments UA Color (test code = Light Yellow UA Color) *NA*(07/22/14 1:46 PM) [facility] [id number] 18:46:00 Test Item Value Reference Range Interpretation Comments Magnesium Lvl (test code = Magnesium 1.8 1.8-2.4 Lvl) [facility]AqkorbfHNTRFGVAOAYY1926-36-89 18:46:00 Test Item Value Reference Range Interpretation Comments AGAP (test code = AGAP) 13.2 10.0-20.0 [facility] HospitalMdemzycJBSUTTVKWYPB7451-21-26 18:46:00 Test Item Value Reference Range Interpretation Comments B/C Ratio (test code = B/C Ratio) 18 6-25 [facility] HospitalIthnbceMPBVXMSLRNFO4812-67-79 18:46:00 Test Item Value Reference Range Interpretation Comments A/G Ratio (test code = A/G Ratio) 1.1 0.7-1.6 [facility] HospitalBdmihngYMGGLZYBTKFX6217-27-90 18:46:00 Test Item Value Reference Range Interpretation Comments Globulin (test code = Globulin) 3.3 2.0-4.0 [facility] HospitalAkaodnvBZCRCTUEHLSJ9706-44-41 18:46:00 Test Item Value Reference Range Interpretation Comments eGFR (test code = eGFR) 99 [facility] HospitalTlshvruGYCHMEGJHLLV7479-14-17 18:46:00 Test Item Value Reference Range Interpretation Comments Calcium Lvl (test code = Calcium Lvl) 9.0 8.5-10.5 [facility] HospitalNqzrdywXSDBEINQTXAV0690-62-50 18:46:00 Test Item Value Reference Range Interpretation Comments Chloride Lvl (test code = Chloride Lvl) 106 95-109 [facility] HospitalRraiabsNWAXFJWOKTUC3756-90-37 18:46:00 Test Item Value Reference Range Interpretation Comments Creatinine Lvl (test code = Creatinine 0.9 0.5-1.4 Lvl) [facility] HospitalNttwvpnPOALLTICAROV4004-27-21 18:46:00 Test Item Value Reference Range Interpretation Comments Potassium Lvl (test code = Potassium 4.2 3.5-5.1 Lvl) [facility] HospitalOfsslhkPLFMAUATSJVT2562-03-97 18:46:00 Test Item Value Reference Range Interpretation Comments Sodium Lvl (test code = Sodium Lvl) 139 135-145 [facility] HospitalCnwqcxjDWRZVVFUYGCC3353-47-46 18:46:00 Test Item Value Reference Range Interpretation Comments CO2 (test code = CO2) 24 24-32 [facility] HospitalBiamsqlSYLPJVQDYVSY3432-22-54 18:46:00 Test Item Value Reference Range Interpretation Comments BUN (test code = BUN) 16 7-22 [facility] HospitalQyfcgirDAWBAFCIAOHR0005-14-27 18:46:00 Test Item Value Reference Range Interpretation Comments Glucose Lvl (test code = Glucose Lvl) 141 70-99 [facility] HospitalLzilpimNTSQKCOAIKJG3693-26-35 18:46:00 Test Item Value Reference Range Interpretation Comments Albumin Lvl (test code = Albumin Lvl) 3.6 3.5-5.0 [facility] HospitalZlfqokvIBIQTWLPURPQ7484-45-22 18:46:00 Test Item Value Reference Range Interpretation Comments Alk Phos (test code = Alk Phos) 65 39-136 [facility] HospitalUboynjkZDVMDKVZGWPL8540-02-63 18:46:00 Test Item Value Reference Range Interpretation Comments Bili Total (test code = Bili Total) 0.3 0.2-1.3 [facility] HospitalVeuwnzwVAZMUMXHAFEJ3137-60-42 18:46:00 Test Item Value Reference Range Interpretation Comments ALT (test code = ALT) 100 See_Comment [Auto mated message] The system which ge nerated this result transmit elizabeth reference range : <=65. The reference range was not used to interpr et this result as margaret l/abnormal. [facility] HospitalYsvwkxyZFSJYAJJDBAK3811-47-17 18:46:00 Test Item Value Reference Range Interpretation Comments AST (test code = AST) 53 See_Comment [Auto mated message] The system which ge nerated this result transmit elizabeth reference range : <=37. The reference range was not used to interpr et this result as margaret l/abnormal. [facility] HospitalXeocrplNPFULTJBWOAZ1462-21-15 18:46:00 Test Item Value Reference Range Interpretation Comments Total Protein (test code = Total 6.9 6.4-8.4 Protein) [facility] CenterJnnxrliISNRKADXYZ8559-14-31 18:46:00 Test Item Value Reference Range Interpretation Comments Eosinophils (test code = 4.2 See_Comment [A utomated message] The Eosinophils) system which ge nerated this result tra nsmitted reference range : <=4.0. The reference r mitra was not used to int erpret this result as normal/abnormal . [facility] CenterNchufwjLLQCGASQKC2791-53-46 18:46:00 Test Item Value Reference Range Interpretation Comments Segs (test code = Segs) 56.4 45.0-75.0 [facility] CenterLcinnbcZHCCGDVUKE9257-46-31 18:46:00 Test Item Value Reference Range Interpretation Comments Monocytes (test code = Monocytes) 10.3 2.0-12.0 [facility] CenterOngxnjxXUZSJDOARZ2753-06-64 18:46:00 Test Item Value Reference Range Interpretation Comments Lymphocytes (test code = Lymphocytes) 28.0 20.0-40.0 [facility] CenterRqjuohuNETCXRSCUH1147-76-82 18:46:00 Test Item Value Reference Range Interpretation Comments Monocytes # (test code 0.5 See_Comment [Aut omated message] The = Monocytes #) system which generated this result tra nsmitted reference range : <=0.8. The reference r mitra was not used to int erpret this result as normal/abnormal . [facility] CenterGgkrymsCAGOCMVLAV3887-62-93 18:46:00 Test Item Value Reference Range Interpretation Comments Basophils (test code = 1.1 See_Comment [Aut omated message] The Basophils) system which ge nerated this result tra nsmitted reference range : <=1.0. The reference r mitra was not used to int erpret this result as normal/abnormal . [facility] CenterAhkiejjHTGEYWWWQM1380-13-30 18:46:00 Test Item Value Reference Range Interpretation Comments Lymphocytes # (test code = Lymphocytes 1.5 1.0-5.5 #) [facility] CenterLlxhqncFHHARYZBDK4535-40-39 18:46:00 Test Item Value Reference Range Interpretation Comments Segs-Bands # (test code = Segs-Bands #) 2.9 1.5-8.1 [facility] CenterZtbhutuTYZSWKYYQO4764-48-97 18:46:00 Test Item Value Reference Range Interpretation Comments Eosinophils # (test code 0.2 See_Comment [A utomated message] The = Eosinophils #) system whic h generated this result tra nsmitted reference range : <=0.5. The reference r mitra was not used to int erpret this result as normal/abnormal . [facility] CenterRywqeqkTUEDPRAMXB6998-33-84 18:46:00 Test Item Value Reference Range Interpretation Comments Basophils # (test code 0.1 See_Comment [Aut omated message] The = Basophils #) system which generated this result tra nsmitted reference range : <=0.2. The reference r mitra was not used to int erpret this result as normal/abnormal . [facility] CenterJzrbcsfLKAYHLGNRX2700-52-89 18:46:00 Test Item Value Reference Range Interpretation Comments PT (test code = PT) 11.2 s 12.0-14.7 [facility] CenterFfucjhgTXSNXVSKBL0163-79-53 18:46:00 Test Item Value Reference Range Interpretation Comments INR (test code = INR) 0.82 0.85-1.17 [facility] CenterRgyebbdGTONNKYTSK5058-67-11 18:46:00 Test Item Value Reference Range Interpretation Comments PTT (test code = PTT) 28.6 s 22.9-35.8 [facility] CenterWwarqiwHYPOHHNWZH5346-65-75 18:46:00 Test Item Value Reference Range Interpretation Comments MPV (test code = MPV) 8.1 7.4-10.4 [facility]KbwiuqpCKJLBMLBIQ5576-29-05 18:46:00 Test Item Value Reference Range Interpretation Comments Platelet (test code = Platelet) 301 133-450 [facility] HospitalMoakjwwCHNBFULMTF6218-46-78 18:46:00 Test Item Value Reference Range Interpretation Comments RDW (test code = RDW) 14.5 11.5-14.5 [facility] HospitalCofizwwJBBJBBNKIS6183-67-07 18:46:00 Test Item Value Reference Range Interpretation Comments RBC (test code = RBC) 4.84 4.70-6.10 [facility] HospitalDgwbxppCIZFORQRRF0631-02-43 18:46:00 Test Item Value Reference Range Interpretation Comments Hgb (test code = Hgb) 14.4 14.0-18.0 [facility] HospitalQxactnfJNQQREPVLI8328-06-72 18:46:00 Test Item Value Reference Range Interpretation Comments WBC (test code = WBC) 5.2 3.7-10.4 [facility]uebvKKXJBICKTA5612-33-99 18:46:00 Test Item Value Reference Range Interpretation Comments MCH (test code = MCH) 29.8 pg 27.0-31.0 [facility]ZPIQQMBUN9840-10-90 18:46:00 Test Item Value Reference Range Interpretation Comments MCV (test code = MCV) 92.0 80.0-94.0 [facility]RyxljqoEPRVQTTIVJ5263-54-63 18:46:00 Test Item Value Reference Range Interpretation Comments Hct (test code = Hct) 44.5 42.0-54.0 [facility]LkemsefDDSJBXBTWC5160-86-76 18:46:00 Test Item Value Reference Range Interpretation Comments MCHC (test code = MCHC) 32.4 32.0-36.0 [facility]NftgwtsUTYNIKZHSL8293-94-19 18:46:00 Test Item Value Reference Range Interpretation Comments [place]-Hep C Ab (test Negative *NA*(07/22/14 code = [place]Hep C 1:46 PM) Ab) [facility] AND [id number] 18:46:00 Test Item Value Reference Range Interpretation Comments UA Urobilinogen (test code = UA <=1.0 mg/dL 0.1-1.0 Urobilinogen) [facility] AND [id number] 18:46:00 Test Item Value Reference Range Interpretation Comments UA Sq Epi (test code = UA Sq Epi) None Seen [facility] AND [id number] 18:46:00 Test Item Value Reference Range Interpretation Comments UA Leuk Est (test Negative (07/22/14 1:46 code = UA Leuk Est) PM) [facility] AND [id number] 18:46:00 Test Item Value Reference Range Interpretation Comments UA Nitrite (test code Negative (07/22/14 1:46 = UA Nitrite) PM) [facility] AND [id number] 18:46:00 Test Item Value Reference Range Interpretation Comments UA Blood (test code = Negative (07/22/14 1:46 UA Blood) PM) [facility] AND [id number] 18:46:00 Test Item Value Reference Range Interpretation Comments UA Ketones (test code = UA Negative mg/dL Ketones) [facility] AND [id number] 18:46:00 Test Item Value Reference Range Interpretation Comments UA Bili (test code = Negative *NA*(07/22/14 UA Bili) 1:46 PM) [facility] AND [id number] 18:46:00 Test Item Value Reference Range Interpretation Comments UA Bacteria (test code = UA Occasional /HPF Bacteria) [facility] AND [id number] 18:46:00 Test Item Value Reference Range Interpretation Comments UA RBC (test code = no gt See_Comment [Automa elizabeth message] The UA RBC) system which ge nerated this result transmit elizabeth reference range : <=2. The reference range was not used to interpr et this result as margaret l/abnormal. [facility] AND [id number] 18:46:00 Test Item Value Reference Range Interpretation Comments UA WBC (test code = 1 See_Comment [Automa elizbaeth message] The UA WBC) system which ge nerated this result transmit elizabeth reference range : <=5. The reference range was not used to interpr et this result as margaret l/abnormal. [facility] AND [id number] 18:46:00 Test Item Value Reference Range Interpretation Comments UA Glucose (test code = UA Glucose) 30 mg/dL [facility] AND [id number] 18:46:00 Test Item Value Reference Range Interpretation Comments UA Protein (test code = UA Negative mg/dL Protein) [facility] AND [id number] 18:46:00 Test Item Value Reference Range Interpretation Comments UA pH (test code = UA pH) 6.5 5.0-8.0 [facility] AND [id number] 18:46:00 Test Item Value Reference Range Interpretation Comments UA Turbidity (test code = Clear (07/22/14 1:46 UA Turbidity) PM) [facility] AND [id number] 18:46:00 Test Item Value Reference Range Interpretation Comments UA Spec Grav (test code = UA Spec Grav) 1.010 [facility] AND [id number] 18:46:00 Test Item Value Reference Range Interpretation Comments UA Color (test code = Light Yellow UA Color) *NA*(07/22/14 1:46 PM) [facility] [id number] 18:46:00 Test Item Value Reference Range Interpretation Comments Magnesium Lvl (test code = Magnesium 1.8 1.8-2.4 Lvl) [facility]LydkjmkKCINEAMOVOXG8727-44-52 18:46:00 Test Item Value Reference Range Interpretation Comments AGAP (test code = AGAP) 13.2 10.0-20.0 [facility] HospitalVubtebkQHKXWUJOZMZB8596-53-92 18:46:00 Test Item Value Reference Range Interpretation Comments B/C Ratio (test code = B/C Ratio) 18 6-25 [facility] HospitalJqlrlvjQBGGWSSGZGFS4474-02-99 18:46:00 Test Item Value Reference Range Interpretation Comments A/G Ratio (test code = A/G Ratio) 1.1 0.7-1.6 [facility]WvitcuqMZMTMTOKZOOJ3330-85-84 18:46:00 Test Item Value Reference Range Interpretation Comments Globulin (test code = Globulin) 3.3 2.0-4.0 [facility] HospitalQtblixcBNCFWGPHDHWL0749-20-39 18:46:00 Test Item Value Reference Range Interpretation Comments eGFR (test code = eGFR) 99 [facility] HospitalZhxhgjdDVCNRPCSGPUI0367-46-01 18:46:00 Test Item Value Reference Range Interpretation Comments Calcium Lvl (test code = Calcium Lvl) 9.0 8.5-10.5 [facility] HospitalBvtlkaoAFLRBXZVKXQD0898-61-37 18:46:00 Test Item Value Reference Range Interpretation Comments Chloride Lvl (test code = Chloride Lvl) 106 95-109 [facility] HospitalRdqbxipOJUOGVAENYIR8245-39-82 18:46:00 Test Item Value Reference Range Interpretation Comments Creatinine Lvl (test code = Creatinine 0.9 0.5-1.4 Lvl) [facility] HospitalWeexmvzUJUJLVDVMWEU4169-73-18 18:46:00 Test Item Value Reference Range Interpretation Comments Potassium Lvl (test code = Potassium 4.2 3.5-5.1 Lvl) [facility] HospitalDboftxyJPWCMPHANYHW5867-39-00 18:46:00 Test Item Value Reference Range Interpretation Comments Sodium Lvl (test code = Sodium Lvl) 139 135-145 [facility] HospitalQscyrrnTDLYJYPFCJDV6417-93-69 18:46:00 Test Item Value Reference Range Interpretation Comments CO2 (test code = CO2) 24 24-32 [facility] HospitalCyuoqlrDOVQUBJBPLDC8898-97-97 18:46:00 Test Item Value Reference Range Interpretation Comments BUN (test code = BUN) 16 7-22 [facility] HospitalKnusppgGVLHXZYBJIHG1275-63-92 18:46:00 Test Item Value Reference Range Interpretation Comments Glucose Lvl (test code = Glucose Lvl) 141 70-99 [facility] HospitalFmpqiltVYSWOIKMZHYO2038-19-72 18:46:00 Test Item Value Reference Range Interpretation Comments Albumin Lvl (test code = Albumin Lvl) 3.6 3.5-5.0 [facility] HospitalYeobmadUMLXIONCKHRQ3078-70-87 18:46:00 Test Item Value Reference Range Interpretation Comments Alk Phos (test code = Alk Phos) 65 39-136 [facility] HospitalBuzpbuuFFNCLEYSLYDG9970-95-20 18:46:00 Test Item Value Reference Range Interpretation Comments Bili Total (test code = Bili Total) 0.3 0.2-1.3 [facility] HospitalFdxocrxLOCGTNXBIEPF3354-49-44 18:46:00 Test Item Value Reference Range Interpretation Comments ALT (test code = ALT) 100 See_Comment [Auto mated message] The system which ge nerated this result transmit elizabeth reference range : <=65. The reference range was not used to interpr et this result as margaret l/abnormal. [facility] HospitalRckegbwXMNKHGDJWKGH6423-07-51 18:46:00 Test Item Value Reference Range Interpretation Comments AST (test code = AST) 53 See_Comment [Auto mated message] The system which ge nerated this result transmit elizabeth reference range : <=37. The reference range was not used to interpr et this result as margaret l/abnormal. [facility] HospitalUhqaqsyQRTAQYOVMYPG7882-20-06 18:46:00 Test Item Value Reference Range Interpretation Comments Total Protein (test code = Total 6.9 6.4-8.4 Protein) [facility]ZpadiywUWSUHTZZAK3190-18-87 18:46:00 Test Item Value Reference Range Interpretation Comments Eosinophils (test code = 4.2 See_Comment [A utomated message] The Eosinophils) system which ge nerated this result tra nsmitted reference range : <=4.0. The reference r mitra was not used to int erpret this result as normal/abnormal . [facility] CenterBpywgisBXEXCDLINA9121-80-10 18:46:00 Test Item Value Reference Range Interpretation Comments Segs (test code = Segs) 56.4 45.0-75.0 [facility] CenterSquusfrXBBRDBFKPL2709-95-01 18:46:00 Test Item Value Reference Range Interpretation Comments Monocytes (test code = Monocytes) 10.3 2.0-12.0 [facility] CenterUfnvgvhSAJCIJTJRK7699-45-08 18:46:00 Test Item Value Reference Range Interpretation Comments Lymphocytes (test code = Lymphocytes) 28.0 20.0-40.0 [facility] CenterFsxbzzkYNGRJMXFUU3970-80-75 18:46:00 Test Item Value Reference Range Interpretation Comments Monocytes # (test code 0.5 See_Comment [Aut omated message] The = Monocytes #) system which generated this result tra nsmitted reference range : <=0.8. The reference r mitra was not used to int erpret this result as normal/abnormal . [facility] CenterIkljwcjAPYMZCAECN8332-03-96 18:46:00 Test Item Value Reference Range Interpretation Comments Basophils (test code = 1.1 See_Comment [Aut omated message] The Basophils) system which ge nerated this result tra nsmitted reference range : <=1.0. The reference r mitra was not used to int erpret this result as normal/abnormal . [facility] CenterQdbbzqtYLVMJCGEZK4193-79-43 18:46:00 Test Item Value Reference Range Interpretation Comments Lymphocytes # (test code = Lymphocytes 1.5 1.0-5.5 #) [facility] CenterEoqgxbqPCOLZRHMYV6023-61-71 18:46:00 Test Item Value Reference Range Interpretation Comments Segs-Bands # (test code = Segs-Bands #) 2.9 1.5-8.1 [facility] CenterFrvftjpSPKWQMWLET3465-62-16 18:46:00 Test Item Value Reference Range Interpretation Comments Eosinophils # (test code 0.2 See_Comment [A utomated message] The = Eosinophils #) system whic h generated this result tra nsmitted reference range : <=0.5. The reference r mitra was not used to int erpret this result as normal/abnormal . [facility] CenterZegnhhhKVVBEHSAHM2531-07-97 18:46:00 Test Item Value Reference Range Interpretation Comments Basophils # (test code 0.1 See_Comment [Aut omated message] The = Basophils #) system which generated this result tra nsmitted reference range : <=0.2. The reference r mitra was not used to int erpret this result as normal/abnormal . [facility] CenterVfssdpbYGBZWBLHMY3127-11-93 18:46:00 Test Item Value Reference Range Interpretation Comments PT (test code = PT) 11.2 s 12.0-14.7 [facility] CenterMoclixeGHHQUQBXDS5133-71-30 18:46:00 Test Item Value Reference Range Interpretation Comments INR (test code = INR) 0.82 0.85-1.17 [facility] CenterDtpwwbmMDYGQFWYRL1590-31-19 18:46:00 Test Item Value Reference Range Interpretation Comments PTT (test code = PTT) 28.6 s 22.9-35.8 [facility] CenterWhfyktdRWZGRTUAVS2423-74-33 18:46:00 Test Item Value Reference Range Interpretation Comments MPV (test code = MPV) 8.1 7.4-10.4 [facility] CenterMetclbdCZHNUWVEWS8695-73-76 18:46:00 Test Item Value Reference Range Interpretation Comments Platelet (test code = Platelet) 301 133-450 [facility] CenterZipewmhGJMPGIOXQD2668-04-97 18:46:00 Test Item Value Reference Range Interpretation Comments RDW (test code = RDW) 14.5 11.5-14.5 [facility] CenterHnqcsyoBSWIJJUBEB6405-95-62 18:46:00 Test Item Value Reference Range Interpretation Comments RBC (test code = RBC) 4.84 4.70-6.10 [facility]VvkhtaaZOZJUZKFUZ5111-77-14 18:46:00 Test Item Value Reference Range Interpretation Comments Hgb (test code = Hgb) 14.4 14.0-18.0 [facility] HospitalEmhulwwAOBSRFENWZ3040-20-85 18:46:00 Test Item Value Reference Range Interpretation Comments WBC (test code = WBC) 5.2 3.7-10.4 [facility] HospitalMaiusuhNWZXTQRQYO2602-37-49 18:46:00 Test Item Value Reference Range Interpretation Comments MCH (test code = MCH) 29.8 pg 27.0-31.0 [facility] HospitalOfsfcccLNPCHBRCQR7411-62-18 18:46:00 Test Item Value Reference Range Interpretation Comments MCV (test code = MCV) 92.0 80.0-94.0 [facility] HospitalWagzkdcHOVBOYMDNA1198-17-47 18:46:00 Test Item Value Reference Range Interpretation Comments Hct (test code = Hct) 44.5 42.0-54.0 [facility] HospitalQwiphgmSLAFJRMORG7142-12-60 18:46:00 Test Item Value Reference Range Interpretation Comments MCHC (test code = MCHC) 32.4 32.0-36.0 [facility]XlzsufmUIOMDDWSAC1733-23-60 18:46:00 Test Item Value Reference Range Interpretation Comments [place]Hep C Ab (test Negative *NA*(07/22/14 code = [place]Hep C 1:46 PM) Ab) [facility] AND [id number] 18:46:00 Test Item Value Reference Range Interpretation Comments UA Urobilinogen (test code = UA <=1.0 mg/dL 0.1-1.0 Urobilinogen) [facility] [id number] 18:46:00 Test Item Value Reference Range Interpretation Comments UA Sq Epi (test code = UA Sq Epi) None [facility]en [facility] [id number] 18:46:00 Test Item Value Reference Range Interpretation Comments UA Leuk Est (test Negative (07/22/14 1:46 code = UA Leuk Est) PM) [facility] [id number] 18:46:00 Test Item Value Reference Range Interpretation Comments UA Nitrite (test code Negative (07/22/14 1:46 = UA Nitrite) PM) [facility] [id number] 18:46:00 Test Item Value Reference Range Interpretation Comments UA Blood (test code = Negative (07/22/14 1:46 UA Blood) PM) [facility] AND [id number] 18:46:00 Test Item Value Reference Range Interpretation Comments UA Ketones (test code = UA Negative mg/dL Ketones) [facility] AND [id number] 18:46:00 Test Item Value Reference Range Interpretation Comments UA Bili (test code = Negative *NA*(07/22/14 UA Bili) 1:46 PM) [facility] AND [id number] 18:46:00 Test Item Value Reference Range Interpretation Comments UA Bacteria (test code = UA Occasional /HPF Bacteria) [facility] AND [id number] 18:46:00 Test Item Value Reference Range Interpretation Comments UA RBC (test code = no gt See_Comment [Automa elizabeth message] The UA RBC) system which ge nerated this result transmit elizabeth reference range : <=2. The reference range was not used to interpr et this result as margaret l/abnormal. [facility] AND [id number] 18:46:00 Test Item Value Reference Range Interpretation Comments UA WBC (test code = 1 See_Comment [Automa elizabeth message] The UA WBC) system which ge nerated this result transmit elizabeth reference range : <=5. The reference range was not used to interpr et this result as margaret l/abnormal. [facility] AND [id number] 18:46:00 Test Item Value Reference Range Interpretation Comments UA Glucose (test code = UA Glucose) 30 mg/dL [facility] AND [id number] 18:46:00 Test Item Value Reference Range Interpretation Comments UA Protein (test code = UA Negative mg/dL Protein) [facility] AND [id number] 18:46:00 Test Item Value Reference Range Interpretation Comments UA pH (test code = UA pH) 6.5 5.0-8.0 [facility] AND [id number] 18:46:00 Test Item Value Reference Range Interpretation Comments UA Turbidity (test code = Clear (07/22/14 1:46 UA Turbidity) PM) [facility] AND [id number] 18:46:00 Test Item Value Reference Range Interpretation Comments UA Spec Grav (test code = UA Spec Grav) 1.010 [facility] [id number] 18:46:00 Test Item Value Reference Range Interpretation Comments UA Color (test code = Light Yellow UA Color) *NA*(07/22/14 1:46 PM) [facility] [id number] 18:46:00 Test Item Value Reference Range Interpretation Comments Magnesium Lvl (test code = Magnesium 1.8 1.8-2.4 Lvl) [facility] HospitalDupirleQSKAJXMOQWBI7258-37-53 18:46:00 Test Item Value Reference Range Interpretation Comments AGAP (test code = AGAP) 13.2 10.0-20.0 [facility] HospitalBswyysdILJCIAIYMLTP4109-20-17 18:46:00 Test Item Value Reference Range Interpretation Comments B/C Ratio (test code = B/C Ratio) 18 6-25 [facility] HospitalRxqvxcxJHAQMIKXQYUP9912-41-41 18:46:00 Test Item Value Reference Range Interpretation Comments A/G Ratio (test code = A/G Ratio) 1.1 0.7-1.6 [facility] HospitalCxoykizHCMYTLCKXKJY2674-55-42 18:46:00 Test Item Value Reference Range Interpretation Comments Globulin (test code = Globulin) 3.3 2.0-4.0 [facility] HospitalNwhzirsNZJHFOZDOGSA5872-65-16 18:46:00 Test Item Value Reference Range Interpretation Comments eGFR (test code = eGFR) 99 [facility] HospitalDlyqvnmPULLCJPELIJG5795-16-64 18:46:00 Test Item Value Reference Range Interpretation Comments Calcium Lvl (test code = Calcium Lvl) 9.0 8.5-10.5 [facility] HospitalIhsdohnKDDQMLJHVHKI5237-88-36 18:46:00 Test Item Value Reference Range Interpretation Comments Chloride Lvl (test code = Chloride Lvl) 106 95-109 [facility] HospitalNecffswWBBUKPXMHNXW6379-14-29 18:46:00 Test Item Value Reference Range Interpretation Comments Creatinine Lvl (test code = Creatinine 0.9 0.5-1.4 Lvl) [facility] HospitalRyetcwxLRZBTUAPVKMW8197-43-52 18:46:00 Test Item Value Reference Range Interpretation Comments Potassium Lvl (test code = Potassium 4.2 3.5-5.1 Lvl) [facility] HospitalWpmtoqoWXHLUFAEXKYL5232-68-02 18:46:00 Test Item Value Reference Range Interpretation Comments Sodium Lvl (test code = Sodium Lvl) 139 135-145 [facility] HospitalYutcjhbUCSTTXOBABYE9685-59-12 18:46:00 Test Item Value Reference Range Interpretation Comments CO2 (test code = CO2) 24 24-32 [facility] HospitalBqawlccHDDYUAJGQUQV6947-01-80 18:46:00 Test Item Value Reference Range Interpretation Comments BUN (test code = BUN) 16 7-22 [facility] HospitalVuxvnadSSMNBWMEOIPY5273-13-43 18:46:00 Test Item Value Reference Range Interpretation Comments Glucose Lvl (test code = Glucose Lvl) 141 70-99 [facility] HospitalKkqarcnCZEGUTFAXVDM1932-27-54 18:46:00 Test Item Value Reference Range Interpretation Comments Albumin Lvl (test code = Albumin Lvl) 3.6 3.5-5.0 [facility] HospitalOhdiycxZHKXKYEQAQZW1683-23-60 18:46:00 Test Item Value Reference Range Interpretation Comments Alk Phos (test code = Alk Phos) 65 39-136 [facility] HospitalYqugzjqKZQSDIGKZBPG6978-58-27 18:46:00 Test Item Value Reference Range Interpretation Comments Bili Total (test code = Bili Total) 0.3 0.2-1.3 [facility] HospitalPmgccijODRDFLZZDSYP6100-07-62 18:46:00 Test Item Value Reference Range Interpretation Comments ALT (test code = ALT) 100 See_Comment [Auto mated message] The system which ge nerated this result transmit elizabeth reference range : <=65. The reference range was not used to interpr et this result as margaret l/abnormal. [facility] HospitalVomwqotHNKFYITWQEMT3045-65-67 18:46:00 Test Item Value Reference Range Interpretation Comments AST (test code = AST) 53 See_Comment [Auto mated message] The system which ge nerated this result transmit elizabeth reference range : <=37. The reference range was not used to interpr et this result as margaret l/abnormal. [facility] HospitalZzlraiwTCEABTOVMGVN8823-58-84 18:46:00 Test Item Value Reference Range Interpretation Comments Total Protein (test code = Total 6.9 6.4-8.4 Protein) [facility]hszrlyBVKTZYLQUH5430-68-89 18:46:00 Test Item Value Reference Range Interpretation Comments Eosinophils (test code = 4.2 See_Comment [A utomated message] The Eosinophils) system which ge nerated this result tra nsmitted reference range : <=4.0. The reference r mitra was not used to int erpret this result as normal/abnormal . [facility] CenterTcltoghRAJVSENHYF6575-08-78 18:46:00 Test Item Value Reference Range Interpretation Comments Segs (test code = Segs) 56.4 45.0-75.0 [facility] CenterTcnsojfFUEOMZCNUG7279-22-20 18:46:00 Test Item Value Reference Range Interpretation Comments Monocytes (test code = Monocytes) 10.3 2.0-12.0 [facility] CenterZdzobvqYGWHNJBDHL5520-93-30 18:46:00 Test Item Value Reference Range Interpretation Comments Lymphocytes (test code = Lymphocytes) 28.0 20.0-40.0 [facility] CenterFzkaizeIGSVSFTWGY7372-13-01 18:46:00 Test Item Value Reference Range Interpretation Comments Monocytes # (test code 0.5 See_Comment [Aut omated message] The = Monocytes #) system which generated this result tra nsmitted reference range : <=0.8. The reference r mitra was not used to int erpret this result as normal/abnormal . [facility] CenterPacvhtjYYIXZRPNAU1342-65-04 18:46:00 Test Item Value Reference Range Interpretation Comments Basophils (test code = 1.1 See_Comment [Aut omated message] The Basophils) system which ge nerated this result tra nsmitted reference range : <=1.0. The reference r mitra was not used to int erpret this result as normal/abnormal . [facility] CenterSffhbryAAEOWGJPLJ8382-07-12 18:46:00 Test Item Value Reference Range Interpretation Comments Lymphocytes # (test code = Lymphocytes 1.5 1.0-5.5 #) [facility] CenterGpkhrqvCQXOEKQVYY3064-66-29 18:46:00 Test Item Value Reference Range Interpretation Comments Segs-Bands # (test code = Segs-Bands #) 2.9 1.5-8.1 [facility] CenterThozxnpYURZIYKMXT9992-90-44 18:46:00 Test Item Value Reference Range Interpretation Comments Eosinophils # (test code 0.2 See_Comment [A utomated message] The = Eosinophils #) system whic h generated this result tra nsmitted reference range : <=0.5. The reference r mitra was not used to int erpret this result as normal/abnormal . [facility] CenterSxyifksAVUPXCZXND3230-45-40 18:46:00 Test Item Value Reference Range Interpretation Comments Basophils # (test code 0.1 See_Comment [Aut omated message] The = Basophils #) system which generated this result tra nsmitted reference range : <=0.2. The reference r mitra was not used to int erpret this result as normal/abnormal . [facility] CenterAyyznljQHNTIECUVV2685-32-81 18:46:00 Test Item Value Reference Range Interpretation Comments PT (test code = PT) 11.2 s 12.0-14.7 [facility] CenterYuxbtcvBTSGFPJKQN1159-06-78 18:46:00 Test Item Value Reference Range Interpretation Comments INR (test code = INR) 0.82 0.85-1.17 [facility] CenterNncerptCUXRWGFPJD5858-28-39 18:46:00 Test Item Value Reference Range Interpretation Comments PTT (test code = PTT) 28.6 s 22.9-35.8 [facility] CenterSlscbpjOZROPPINVH3552-98-74 18:46:00 Test Item Value Reference Range Interpretation Comments MPV (test code = MPV) 8.1 7.4-10.4 [facility] CenterUszlmmnHAEQHANUNK0870-86-76 18:46:00 Test Item Value Reference Range Interpretation Comments Platelet (test code = Platelet) 301 133-450 [facility] CenterTwntgnhSNRIXHUMJY9718-69-15 18:46:00 Test Item Value Reference Range Interpretation Comments RDW (test code = RDW) 14.5 11.5-14.5 [facility] CenterAtojwsxKUUQLFUOIA8931-28-12 18:46:00 Test Item Value Reference Range Interpretation Comments RBC (test code = RBC) 4.84 4.70-6.10 [facility] CenterDpwnojuISKTMXXPCM6378-07-08 18:46:00 Test Item Value Reference Range Interpretation Comments Hgb (test code = Hgb) 14.4 14.0-18.0 [facility] CenterDptqwgdFDRVUKATEI4267-95-65 18:46:00 Test Item Value Reference Range Interpretation Comments WBC (test code = WBC) 5.2 3.7-10.4 [facility] CenterWwmlvsvDGTIBBVINC2373-75-14 18:46:00 Test Item Value Reference Range Interpretation Comments MCH (test code = MCH) 29.8 pg 27.0-31.0 [facility] CenterUkjroloEWAOVLOQEX6321-23-73 18:46:00 Test Item Value Reference Range Interpretation Comments MCV (test code = MCV) 92.0 80.0-94.0 [facility]QdyjlejMEDLRXXLQI7817-63-19 18:46:00 Test Item Value Reference Range Interpretation Comments Hct (test code = Hct) 44.5 42.0-54.0 [facility]DbehbfhPTEFKHOFTG7113-47-13 18:46:00 Test Item Value Reference Range Interpretation Comments MCHC (test code = MCHC) 32.4 32.0-36.0 [facility]KofpwsaWZQAFAGUTR4430-41-81 18:46:00 Test Item Value Reference Range Interpretation Comments [place]Hep C Ab (test Negative *NA*(07/22/14 code = [place]-Hep C 1:46 PM) Ab) [facility] AND [id number] 18:46:00 Test Item Value Reference Range Interpretation Comments UA Urobilinogen (test code = UA <=1.0 mg/dL 0.1-1.0 Urobilinogen) [facility] AND [id number] 18:46:00 Test Item Value Reference Range Interpretation Comments UA Sq Epi (test code = UA Sq Epi) None Seen [facility] AND [id number] 18:46:00 Test Item Value Reference Range Interpretation Comments UA Leuk Est (test Negative (07/22/14 1:46 code = UA Leuk Est) PM) [facility] AND [id number] 18:46:00 Test Item Value Reference Range Interpretation Comments UA Nitrite (test code Negative (07/22/14 1:46 = UA Nitrite) PM) [facility] AND [id number] 18:46:00 Test Item Value Reference Range Interpretation Comments UA Blood (test code = Negative (07/22/14 1:46 UA Blood) PM) [facility] AND [id number] 18:46:00 Test Item Value Reference Range Interpretation Comments UA Ketones (test code = UA Negative mg/dL Ketones) [facility] AND [id number] 18:46:00 Test Item Value Reference Range Interpretation Comments UA Bili (test code = Negative *NA*(07/22/14 UA Bili) 1:46 PM) [facility] AND [id number] 18:46:00 Test Item Value Reference Range Interpretation Comments UA Bacteria (test code = UA Occasional /HPF Bacteria) [facility] AND [id number] 18:46:00 Test Item Value Reference Range Interpretation Comments UA RBC (test code = no gt See_Comment [Automa elizabeth message] The UA RBC) system which ge nerated this result transmit elizabeth reference range : <=2. The reference range was not used to interpr et this result as margaret l/abnormal. [facility] [id number] 18:46:00 Test Item Value Reference Range Interpretation Comments UA WBC (test code = 1 See_Comment [Automa elizabeth message] The UA WBC) system which ge nerated this result transmit elizabeth reference range : <=5. The reference range was not used to interpr et this result as margaret l/abnormal. [facility] AND [id number] 18:46:00 Test Item Value Reference Range Interpretation Comments UA Glucose (test code = UA Glucose) 30 mg/dL [facility] AND [id number] 18:46:00 Test Item Value Reference Range Interpretation Comments UA Protein (test code = UA Negative mg/dL Protein) [facility] [id number] 18:46:00 Test Item Value Reference Range Interpretation Comments UA pH (test code = UA pH) 6.5 5.0-8.0 [facility] AND [id number] 18:46:00 Test Item Value Reference Range Interpretation Comments UA Turbidity (test code = Clear (07/22/14 1:46 UA Turbidity) PM) [facility] AND [id number] 18:46:00 Test Item Value Reference Range Interpretation Comments UA Spec Grav (test code = UA Spec Grav) 1.010 [facility] AND [id number] 18:46:00 Test Item Value Reference Range Interpretation Comments UA Color (test code = Light Yellow UA Color) *NA*(07/22/14 1:46 PM) [facility] [id number] 18:46:00 Test Item Value Reference Range Interpretation Comments Magnesium Lvl (test code = Magnesium 1.8 1.8-2.4 Lvl) [facility]woodAiiakooBERZIYTQCCOB1156-14-80 18:46:00 Test Item Value Reference Range Interpretation Comments AGAP (test code = AGAP) 13.2 10.0-20.0 [facility]YjloaokSSKCUKKKNRRM8647-40-21 18:46:00 Test Item Value Reference Range Interpretation Comments B/C Ratio (test code = B/C Ratio) 18 6-25 [facility] HospitalYggwnxeTYENNTXQNRLZ9762-84-48 18:46:00 Test Item Value Reference Range Interpretation Comments A/G Ratio (test code = A/G Ratio) 1.1 0.7-1.6 [facility] HospitalUaptesoRPYMWFULSCJM3643-04-35 18:46:00 Test Item Value Reference Range Interpretation Comments Globulin (test code = Globulin) 3.3 2.0-4.0 [facility] HospitalRziafbeMQKEUHGKAMJU8623-99-62 18:46:00 Test Item Value Reference Range Interpretation Comments eGFR (test code = eGFR) 99 [facility] HospitalNlxneevCIYDRPJEUCEO2040-23-24 18:46:00 Test Item Value Reference Range Interpretation Comments Calcium Lvl (test code = Calcium Lvl) 9.0 8.5-10.5 [facility] HospitalOzeymilUPHKFHKTRXZO2955-20-89 18:46:00 Test Item Value Reference Range Interpretation Comments Chloride Lvl (test code = Chloride Lvl) 106 95-109 [facility] HospitalSdreftePVDNTKRSOYGW6662-23-25 18:46:00 Test Item Value Reference Range Interpretation Comments Creatinine Lvl (test code = Creatinine 0.9 0.5-1.4 Lvl) [facility] HospitalAoupwucONMGTMHFTEZU3614-62-42 18:46:00 Test Item Value Reference Range Interpretation Comments Potassium Lvl (test code = Potassium 4.2 3.5-5.1 Lvl) [facility] HospitalOeplbkjEMVVUREXWBNN4464-89-65 18:46:00 Test Item Value Reference Range Interpretation Comments Sodium Lvl (test code = Sodium Lvl) 139 135-145 [facility] HospitalMnjnflbOSFFRIBMZGZX0083-22-44 18:46:00 Test Item Value Reference Range Interpretation Comments CO2 (test code = CO2) 24 24-32 [facility] HospitalNwjivgxTNCLLEVSWAUX0299-11-77 18:46:00 Test Item Value Reference Range Interpretation Comments BUN (test code = BUN) 16 7-22 [facility] HospitalBqlvvcxWRJQYFIKMOZS2157-79-45 18:46:00 Test Item Value Reference Range Interpretation Comments Glucose Lvl (test code = Glucose Lvl) 141 70-99 [facility] HospitalCkdnkdzAYNBPNEQWWBX9962-20-86 18:46:00 Test Item Value Reference Range Interpretation Comments Albumin Lvl (test code = Albumin Lvl) 3.6 3.5-5.0 [facility] HospitalIajdjnpYKUAFJJZDVSP1152-01-33 18:46:00 Test Item Value Reference Range Interpretation Comments Alk Phos (test code = Alk Phos) 65 39-136 [facility] HospitalPpfntthOHVLRYSJJGIT3666-73-56 18:46:00 Test Item Value Reference Range Interpretation Comments Bili Total (test code = Bili Total) 0.3 0.2-1.3 [facility] HospitalCagmdbeSEESFITUFLOO0089-26-28 18:46:00 Test Item Value Reference Range Interpretation Comments ALT (test code = ALT) 100 See_Comment [Auto mated message] The system which ge nerated this result transmit elizabeth reference range : <=65. The reference range was not used to interpr et this result as margaret l/abnormal. [facility] HospitalOrorpzxMXOVIWNPVSQN9160-80-68 18:46:00 Test Item Value Reference Range Interpretation Comments AST (test code = AST) 53 See_Comment [Auto mated message] The system which ge nerated this result transmit elizabeth reference range : <=37. The reference range was not used to interpr et this result as margaret l/abnormal. [facility] HospitalQrkfgahUMCPQMLRUHBI3679-40-24 18:46:00 Test Item Value Reference Range Interpretation Comments Total Protein (test code = Total 6.9 6.4-8.4 Protein) [facility]UvfdzsnHRCKNWTDUI5013-56-[facility] 18:46:00 Test Item Value Reference Range Interpretation Comments Eosinophils (test code = 4.2 See_Comment [A utomated message] The Eosinophils) system which ge nerated this result tra nsmitted reference range : <=4.0. The reference r mitra was not used to int erpret this result as normal/abnormal . [facility] CenterJsvoxsmYHQQMOECAM4012-41-65 18:46:00 Test Item Value Reference Range Interpretation Comments Segs (test code = Segs) 56.4 45.0-75.0 [facility] CenterUdgihiuBWUVYDGIDA0633-06-13 18:46:00 Test Item Value Reference Range Interpretation Comments Monocytes (test code = Monocytes) 10.3 2.0-12.0 [facility] CenterTcjabfoRXORVTJSXE7042-40-83 18:46:00 Test Item Value Reference Range Interpretation Comments Lymphocytes (test code = Lymphocytes) 28.0 20.0-40.0 [facility] CenterPusuiwkMUVEEHHAXF7495-02-72 18:46:00 Test Item Value Reference Range Interpretation Comments Monocytes # (test code 0.5 See_Comment [Aut omated message] The = Monocytes #) system which generated this result tra nsmitted reference range : <=0.8. The reference r mitra was not used to int erpret this result as normal/abnormal . [facility] CenterOojokqqOSQXOXYTAY2016-77-75 18:46:00 Test Item Value Reference Range Interpretation Comments Basophils (test code = 1.1 See_Comment [Aut omated message] The Basophils) system which ge nerated this result tra nsmitted reference range : <=1.0. The reference r mitra was not used to int erpret this result as normal/abnormal . [facility] CenterCnsltpxWULXPDFMUP7729-31-28 18:46:00 Test Item Value Reference Range Interpretation Comments Lymphocytes # (test code = Lymphocytes 1.5 1.0-5.5 #) [facility] CenterDnqcjzyLAKMOHKIVD5681-42-36 18:46:00 Test Item Value Reference Range Interpretation Comments Segs-Bands # (test code = Segs-Bands #) 2.9 1.5-8.1 [facility] CenterDrcoodgTGEAERXAZY1370-83-04 18:46:00 Test Item Value Reference Range Interpretation Comments Eosinophils # (test code 0.2 See_Comment [A utomated message] The = Eosinophils #) system whic h generated this result tra nsmitted reference range : <=0.5. The reference r mitra was not used to int erpret this result as normal/abnormal . [facility] CenterHvxtvotXCZTOKILGG2309-97-43 18:46:00 Test Item Value Reference Range Interpretation Comments Basophils # (test code 0.1 See_Comment [Aut omated message] The = Basophils #) system which generated this result tra nsmitted reference range : <=0.2. The reference r mitra was not used to int erpret this result as normal/abnormal . [facility] CenterZtfualvLJKZSTPWTB0480-74-02 18:46:00 Test Item Value Reference Range Interpretation Comments PT (test code = PT) 11.2 s 12.0-14.7 [facility] CenterJwlxllhGOXBIGQOLJ8913-01-68 18:46:00 Test Item Value Reference Range Interpretation Comments INR (test code = INR) 0.82 0.85-1.17 [facility] CenterHyxnbnkOSNOAYIUAX4753-75-99 18:46:00 Test Item Value Reference Range Interpretation Comments PTT (test code = PTT) 28.6 s 22.9-35.8 [facility] CenterCqfzwrkNSOUKREFZC7481-66-22 18:46:00 Test Item Value Reference Range Interpretation Comments MPV (test code = MPV) 8.1 7.4-10.4 [facility] CenterNjejzhxLTQDCWGYCU3003-36-59 18:46:00 Test Item Value Reference Range Interpretation Comments Platelet (test code = Platelet) 301 133-450 [facility] CenterWdvxkowKNGXYCEBJY5583-51-51 18:46:00 Test Item Value Reference Range Interpretation Comments RDW (test code = RDW) 14.5 11.5-14.5 [facility] CenterXdbwplqNVZRDOTTLU1794-63-54 18:46:00 Test Item Value Reference Range Interpretation Comments RBC (test code = RBC) 4.84 4.70-6.10 [facility] CenterOrprdrdEXTAOXOBPH2671-05-25 18:46:00 Test Item Value Reference Range Interpretation Comments Hgb (test code = Hgb) 14.4 14.0-18.0 [facility] CenterRjyyocmMVLYUHEECK2314-63-67 18:46:00 Test Item Value Reference Range Interpretation Comments WBC (test code = WBC) 5.2 3.7-10.4 [facility] CenterDylvjtgROOZOZJKGX0058-00-52 18:46:00 Test Item Value Reference Range Interpretation Comments MCH (test code = MCH) 29.8 pg 27.0-31.0 [facility] CenterAntzcgdRTIQEBIELD5176-45-82 18:46:00 Test Item Value Reference Range Interpretation Comments MCV (test code = MCV) 92.0 80.0-94.0 [facility] CenterMcmosdsTABBBOIFKC2758-21-28 18:46:00 Test Item Value Reference Range Interpretation Comments Hct (test code = Hct) 44.5 42.0-54.0 [facility] CenterYbyqokqXLHFVYVGRM7215-37-03 18:46:00 Test Item Value Reference Range Interpretation Comments MCHC (test code = MCHC) 32.4 32.0-36.0 [facility]idypzSXGKYGFDUJ3867-13-73 18:46:00 Test Item Value Reference Range Interpretation Comments [place]-Hep C Ab (test Negative *NA*(07/22/14 code = [place]-Hep C 1:46 PM) Ab) [facility] AND [id number] 18:46:00 Test Item Value Reference Range Interpretation Comments UA Urobilinogen (test code = UA <=1.0 mg/dL 0.1-1.0 Urobilinogen) [facility] AND [id number] 18:46:00 Test Item Value Reference Range Interpretation Comments UA Sq Epi (test code = UA Sq Epi) None Seen [facility] AND [id number] 18:46:00 Test Item Value Reference Range Interpretation Comments UA Leuk Est (test Negative (07/22/14 1:46 code = UA Leuk Est) PM) [facility] AND [id number] 18:46:00 Test Item Value Reference Range Interpretation Comments UA Nitrite (test code Negative (07/22/14 1:46 = UA Nitrite) PM) [facility] AND [id number] 18:46:00 Test Item Value Reference Range Interpretation Comments UA Blood (test code = Negative (07/22/14 1:46 UA Blood) PM) [facility] AND [id number] 18:46:00 Test Item Value Reference Range Interpretation Comments UA Ketones (test code = UA Negative mg/dL Ketones) [facility] AND [id number] 18:46:00 Test Item Value Reference Range Interpretation Comments UA Bili (test code = Negative *NA*(07/22/14 UA Bili) 1:46 PM) [facility] AND [id number] 18:46:00 Test Item Value Reference Range Interpretation Comments UA Bacteria (test code = UA Occasional /HPF Bacteria) [facility] AND [id number] 18:46:00 Test Item Value Reference Range Interpretation Comments UA RBC (test code = no gt See_Comment [Automa elizabeth message] The UA RBC) system which ge nerated this result transmit elizabeth reference range : <=2. The reference range was not used to interpr et this result as margaret l/abnormal. [facility] AND [id number] 18:46:00 Test Item Value Reference Range Interpretation Comments UA WBC (test code = 1 See_Comment [Automa eilzabeth message] The UA WBC) system which ge nerated this result transmit elizabeth reference range : <=5. The reference range was not used to interpr et this result as margaret l/abnormal. [facility] AND [id number] 18:46:00 Test Item Value Reference Range Interpretation Comments UA Glucose (test code = UA Glucose) 30 mg/dL [facility] AND [id number] 18:46:00 Test Item Value Reference Range Interpretation Comments UA Protein (test code = UA Negative mg/dL Protein) [facility] AND [id number] 18:46:00 Test Item Value Reference Range Interpretation Comments UA pH (test code = UA pH) 6.5 5.0-8.0 [facility] AND [id number] 18:46:00 Test Item Value Reference Range Interpretation Comments UA Turbidity (test code = Clear (07/22/14 1:46 UA Turbidity) PM) [facility] AND [id number] 18:46:00 Test Item Value Reference Range Interpretation Comments UA Spec Grav (test code = UA Spec Grav) 1.010 [facility] AND [id number] 18:46:00 Test Item Value Reference Range Interpretation Comments UA Color (test code = Light Yellow UA Color) *NA*(07/22/14 1:46 PM) [facility] [id number] 18:46:00 Test Item Value Reference Range Interpretation Comments Magnesium Lvl (test code = Magnesium 1.8 1.8-2.4 Lvl) [facility] HospitalMioiaalFRBZVUBBMAJH7172-66-51 18:46:00 Test Item Value Reference Range Interpretation Comments AGAP (test code = AGAP) 13.2 10.0-20.0 [facility] HospitalLctuhgeDHJFIDSVFUPE8997-29-39 18:46:00 Test Item Value Reference Range Interpretation Comments B/C Ratio (test code = B/C Ratio) 18 6-25 [facility] HospitalKarywkqQMCNDRHQYIRB8561-55-40 18:46:00 Test Item Value Reference Range Interpretation Comments A/G Ratio (test code = A/G Ratio) 1.1 0.7-1.6 [facility] HospitalVnfkhtnFGBFJWOICWBQ5891-95-67 18:46:00 Test Item Value Reference Range Interpretation Comments Globulin (test code = Globulin) 3.3 2.0-4.0 [facility] HospitalPiiubwsATOOZQRGKPRD5969-10-99 18:46:00 Test Item Value Reference Range Interpretation Comments eGFR (test code = eGFR) 99 [facility] HospitalWnqnyquSPGEKEYNYLIZ9699-69-02 18:46:00 Test Item Value Reference Range Interpretation Comments Calcium Lvl (test code = Calcium Lvl) 9.0 8.5-10.5 [facility] HospitalHazlmznGTINZCVZLQFY6095-72-07 18:46:00 Test Item Value Reference Range Interpretation Comments Chloride Lvl (test code = Chloride Lvl) 106 95-109 [facility] HospitalBbgyvivXBSNEJMJQBCR5881-28-93 18:46:00 Test Item Value Reference Range Interpretation Comments Creatinine Lvl (test code = Creatinine 0.9 0.5-1.4 Lvl) [facility] HospitalPaguwioUZAPIETJHATV3973-64-03 18:46:00 Test Item Value Reference Range Interpretation Comments Potassium Lvl (test code = Potassium 4.2 3.5-5.1 Lvl) [facility] HospitalYhbpkorXEPZYSRRFXQE5660-04-73 18:46:00 Test Item Value Reference Range Interpretation Comments Sodium Lvl (test code = Sodium Lvl) 139 135-145 [facility] HospitalNdcoylvLTDIUUXSKQTL1052-06-46 18:46:00 Test Item Value Reference Range Interpretation Comments CO2 (test code = CO2) 24 24-32 [facility] HospitalYtcrymiRVGYUTKXQGKP6622-92-66 18:46:00 Test Item Value Reference Range Interpretation Comments BUN (test code = BUN) 16 7-22 [facility] HospitalQjvlravNPBFWZGKSYXL8560-45-37 18:46:00 Test Item Value Reference Range Interpretation Comments Glucose Lvl (test code = Glucose Lvl) 141 70-99 [facility] HospitalGwtogioTYHOWSDPXKJR2088-64-65 18:46:00 Test Item Value Reference Range Interpretation Comments Albumin Lvl (test code = Albumin Lvl) 3.6 3.5-5.0 [facility] HospitalHhinsayLSZFCDAEBZML0614-33-65 18:46:00 Test Item Value Reference Range Interpretation Comments Alk Phos (test code = Alk Phos) 65 39-136 [facility] HospitalAaezhhxLCMJSWHLSOXI1853-52-83 18:46:00 Test Item Value Reference Range Interpretation Comments Bili Total (test code = Bili Total) 0.3 0.2-1.3 [facility] HospitalDifdtldVNQJXLGZSVEU4283-15-94 18:46:00 Test Item Value Reference Range Interpretation Comments ALT (test code = ALT) 100 See_Comment [Auto mated message] The system which ge nerated this result transmit elizabeth reference range : <=65. The reference range was not used to interpr et this result as margaret l/abnormal. [facility] HospitalBeykeuuMQRBFHETOVBD0730-53-41 18:46:00 Test Item Value Reference Range Interpretation Comments AST (test code = AST) 53 See_Comment [Auto mated message] The system which ge nerated this result transmit elizabeth reference range : <=37. The reference range was not used to interpr et this result as margaret l/abnormal. [facility] HospitalQmzewlvKRZTOHURIPCF4364-89-63 18:46:00 Test Item Value Reference Range Interpretation Comments Total Protein (test code = Total 6.9 6.4-8.4 Protein) [facility] CenterSogldanHEVXMUVZMP8805-12-42 18:46:00 Test Item Value Reference Range Interpretation Comments Eosinophils (test code = 4.2 See_Comment [A utomated message] The Eosinophils) system which ge nerated this result tra nsmitted reference range : <=4.0. The reference r mitra was not used to int erpret this result as normal/abnormal . [facility] CenterTxuqfbdJYYTPOOIAV7867-26-35 18:46:00 Test Item Value Reference Range Interpretation Comments Segs (test code = Segs) 56.4 45.0-75.0 [facility] CenterAzgifrgFYKLCTPXXW2897-78-64 18:46:00 Test Item Value Reference Range Interpretation Comments Monocytes (test code = Monocytes) 10.3 2.0-12.0 [facility] CenterRjugkkuUJHJHMDOQK1789-61-13 18:46:00 Test Item Value Reference Range Interpretation Comments Lymphocytes (test code = Lymphocytes) 28.0 20.0-40.0 [facility] CenterGqynvefAVHQCREHSQ7768-76-16 18:46:00 Test Item Value Reference Range Interpretation Comments Monocytes # (test code 0.5 See_Comment [Aut omated message] The = Monocytes #) system which generated this result tra nsmitted reference range : <=0.8. The reference r mitra was not used to int erpret this result as normal/abnormal . [facility] CenterBcfavalQROCRWRAOT8201-95-76 18:46:00 Test Item Value Reference Range Interpretation Comments Basophils (test code = 1.1 See_Comment [Aut omated message] The Basophils) system which ge nerated this result tra nsmitted reference range : <=1.0. The reference r mitra was not used to int erpret this result as normal/abnormal . [facility] CenterDwmclqvVROWUKHKTU1457-08-55 18:46:00 Test Item Value Reference Range Interpretation Comments Lymphocytes # (test code = Lymphocytes 1.5 1.0-5.5 #) [facility] CenterDchzmzeDZWDBUQRRL0870-45-47 18:46:00 Test Item Value Reference Range Interpretation Comments Segs-Bands # (test code = Segs-Bands #) 2.9 1.5-8.1 [facility] CenterUxxfjtxZULIRWANCO7736-69-00 18:46:00 Test Item Value Reference Range Interpretation Comments Eosinophils # (test code 0.2 See_Comment [A utomated message] The = Eosinophils #) system whic h generated this result tra nsmitted reference range : <=0.5. The reference r mitra was not used to int erpret this result as normal/abnormal . [facility] CenterRtvlhmiJUNBARNLGG5978-89-76 18:46:00 Test Item Value Reference Range Interpretation Comments Basophils # (test code 0.1 See_Comment [Aut omated message] The = Basophils #) system which generated this result tra nsmitted reference range : <=0.2. The reference r mitra was not used to int erpret this result as normal/abnormal . [facility] CenterFdqjcngFUQUQTXZBT3021-33-75 18:46:00 Test Item Value Reference Range Interpretation Comments PT (test code = PT) 11.2 s 12.0-14.7 [facility] CenterRdpwgafXXYCXTYPKH0388-36-17 18:46:00 Test Item Value Reference Range Interpretation Comments INR (test code = INR) 0.82 0.85-1.17 [facility] CenterMfkgvjgISVJTZFMPZ5390-83-15 18:46:00 Test Item Value Reference Range Interpretation Comments PTT (test code = PTT) 28.6 s 22.9-35.8 [facility] CenterObfxhxqZVGDRRUBWP8558-84-26 18:46:00 Test Item Value Reference Range Interpretation Comments MPV (test code = MPV) 8.1 7.4-10.4 [facility] CenterVhgsmmxZKWLFLNNRF1145-39-21 18:46:00 Test Item Value Reference Range Interpretation Comments Platelet (test code = Platelet) 301 133-450 [facility] CenterYceguwaCJPJOYQBNN1522-62-40 18:46:00 Test Item Value Reference Range Interpretation Comments RDW (test code = RDW) 14.5 11.5-14.5 [facility]IfbiygtSMUPHAPQUA9981-43-69 18:46:00 Test Item Value Reference Range Interpretation Comments RBC (test code = RBC) 4.84 4.70-6.10 [facility] CenterEvgwmmtLNUYOUBQML1208-99-95 18:46:00 Test Item Value Reference Range Interpretation Comments Hgb (test code = Hgb) 14.4 14.0-18.0 [facility] CenterFavmsoaHCJNSLVTEY9101-47-52 18:46:00 Test Item Value Reference Range Interpretation Comments WBC (test code = WBC) 5.2 3.7-10.4 [facility] CenterQgaqmykSOYRWVHHRC4361-11-21 18:46:00 Test Item Value Reference Range Interpretation Comments MCH (test code = MCH) 29.8 pg 27.0-31.0 [facility] CenterVprqwxcNOSGXCZHOO0944-42-36 18:46:00 Test Item Value Reference Range Interpretation Comments MCV (test code = MCV) 92.0 80.0-94.0 [facility]HgfdkeoAVNEQDIIQA5077-63-33 18:46:00 Test Item Value Reference Range Interpretation Comments Hct (test code = Hct) 44.5 42.0-54.0 [facility] HospitalSvbfaalNTWJFTCMQP4374-06-89 18:46:00 Test Item Value Reference Range Interpretation Comments MCHC (test code = MCHC) 32.4 32.0-36.0 [facility]JoaeajxWESODDNZSQ4751-43-51 18:46:00 Test Item Value Reference Range Interpretation Comments [place]-Hep C Ab (test Negative *NA*(07/22/14 code = [place]-Hep C 1:46 PM) Ab) [facility] AND [id number] 18:46:00 Test Item Value Reference Range Interpretation Comments UA Urobilinogen (test code = UA <=1.0 mg/dL 0.1-1.0 Urobilinogen) [facility] AND [id number] 18:46:00 Test Item Value Reference Range Interpretation Comments UA Sq Epi (test code = UA Sq Epi) None Seen [facility] AND [id number] 18:46:00 Test Item Value Reference Range Interpretation Comments UA Leuk Est (test Negative (07/22/14 1:46 code = UA Leuk Est) PM) [facility] AND [id number] 18:46:00 Test Item Value Reference Range Interpretation Comments UA Nitrite (test code Negative (07/22/14 1:46 = UA Nitrite) PM) [facility] AND [id number] 18:46:00 Test Item Value Reference Range Interpretation Comments UA Blood (test code = Negative (07/22/14 1:46 UA Blood) PM) [facility] AND [id number] 18:46:00 Test Item Value Reference Range Interpretation Comments UA Ketones (test code = UA Negative mg/dL Ketones) [facility] AND [id number] 18:46:00 Test Item Value Reference Range Interpretation Comments UA Bili (test code = Negative *NA*(07/22/14 UA Bili) 1:46 PM) [facility] AND [id number] 18:46:00 Test Item Value Reference Range Interpretation Comments UA Bacteria (test code = UA Occasional /HPF Bacteria) [facility] AND [id number] 18:46:00 Test Item Value Reference Range Interpretation Comments UA RBC (test code = no gt See_Comment [Automa elizabeth message] The UA RBC) system which ge nerated this result transmit elizabeth reference range : <=2. The reference range was not used to interpr et this result as margaret l/abnormal. [facility] AND [id number] 18:46:00 Test Item Value Reference Range Interpretation Comments UA WBC (test code = 1 See_Comment [Automa elizabeth message] The UA WBC) system which ge nerated this result transmit elizabeth reference range : <=5. The reference range was not used to interpr et this result as margaret l/abnormal. [facility] AND [id number] 18:46:00 Test Item Value Reference Range Interpretation Comments UA Glucose (test code = UA Glucose) 30 mg/dL [facility] AND [id number] 18:46:00 Test Item Value Reference Range Interpretation Comments UA Protein (test code = UA Negative mg/dL Protein) [facility] AND [id number] 18:46:00 Test Item Value Reference Range Interpretation Comments UA pH (test code = UA pH) 6.5 5.0-8.0 [facility] AND [id number] 18:46:00 Test Item Value Reference Range Interpretation Comments UA Turbidity (test code = Clear (07/22/14 1:46 UA Turbidity) PM) [facility] [id number] 18:46:00 Test Item Value Reference Range Interpretation Comments UA Spec Grav (test code = UA Spec Grav) 1.010 [facility] AND [id number] 18:46:00 Test Item Value Reference Range Interpretation Comments UA Color (test code = Light Yellow UA Color) *NA*(07/22/14 1:46 PM) [facility] [id number] 18:46:00 Test Item Value Reference Range Interpretation Comments Magnesium Lvl (test code = Magnesium 1.8 1.8-2.4 Lvl) [facility]OxlpzbiKYWHTHXPYPKQ1438-14-14 18:46:00 Test Item Value Reference Range Interpretation Comments AGAP (test code = AGAP) 13.2 10.0-20.0 [facility] HospitalTvbncssTHUDQBYNKOHV7128-32-75 18:46:00 Test Item Value Reference Range Interpretation Comments B/C Ratio (test code = B/C Ratio) 18 6-25 [facility] HospitalKrokemnZIFZFUZSJQTG1815-93-29 18:46:00 Test Item Value Reference Range Interpretation Comments A/G Ratio (test code = A/G Ratio) 1.1 0.7-1.6 [facility] HospitalWjfvotbFUTVZVQPZOAN9761-50-77 18:46:00 Test Item Value Reference Range Interpretation Comments Globulin (test code = Globulin) 3.3 2.0-4.0 [facility] HospitalYgpbyvkIVJHDORHRVJV0540-87-60 18:46:00 Test Item Value Reference Range Interpretation Comments eGFR (test code = eGFR) 99 [facility] HospitalKnbpkgrGCSFOOHEDLHD1104-36-38 18:46:00 Test Item Value Reference Range Interpretation Comments Calcium Lvl (test code = Calcium Lvl) 9.0 8.5-10.5 [facility] HospitalStaqfyzVAJDQKPCDKDS2074-46-17 18:46:00 Test Item Value Reference Range Interpretation Comments Chloride Lvl (test code = Chloride Lvl) 106 95-109 [facility] HospitalAscgpgnTXMRDTGSBWHN9987-06-83 18:46:00 Test Item Value Reference Range Interpretation Comments Creatinine Lvl (test code = Creatinine 0.9 0.5-1.4 Lvl) [facility] HospitalRnyzcalEEVRRBWYHKPO9793-42-06 18:46:00 Test Item Value Reference Range Interpretation Comments Potassium Lvl (test code = Potassium 4.2 3.5-5.1 Lvl) [facility] HospitalPqsrzreYOOFVHZRTQUW7911-81-01 18:46:00 Test Item Value Reference Range Interpretation Comments Sodium Lvl (test code = Sodium Lvl) 139 135-145 [facility] HospitalCdosnxdSNRSVCNZFCPO5302-68-85 18:46:00 Test Item Value Reference Range Interpretation Comments CO2 (test code = CO2) 24 24-32 [facility] HospitalHwjpwruYISYFCYZLIPO0635-34-75 18:46:00 Test Item Value Reference Range Interpretation Comments BUN (test code = BUN) 16 7-22 [facility] HospitalOekrbmmFTYXUWVDXNAW8433-26-92 18:46:00 Test Item Value Reference Range Interpretation Comments Glucose Lvl (test code = Glucose Lvl) 141 70-99 [facility] HospitalUpjddkcLAESAMGHEPVF1959-53-11 18:46:00 Test Item Value Reference Range Interpretation Comments Albumin Lvl (test code = Albumin Lvl) 3.6 3.5-5.0 [facility] HospitalRenoiurGJXBBAZDPWHP5899-79-26 18:46:00 Test Item Value Reference Range Interpretation Comments Alk Phos (test code = Alk Phos) 65 39-136 [facility] HospitalTeaqzmgTLQPJJJBCKNR2128-30-37 18:46:00 Test Item Value Reference Range Interpretation Comments Bili Total (test code = Bili Total) 0.3 0.2-1.3 [facility] HospitalLilvrgcPEPVRINGWIXZ4783-64-25 18:46:00 Test Item Value Reference Range Interpretation Comments ALT (test code = ALT) 100 See_Comment [Auto mated message] The system which ge nerated this result transmit elizabeth reference range : <=65. The reference range was not used to interpr et this result as margaret l/abnormal. [facility] HospitalFvcdtnqEIAFHOKYNXJP4671-81-17 18:46:00 Test Item Value Reference Range Interpretation Comments AST (test code = AST) 53 See_Comment [Auto mated message] The system which ge nerated this result transmit elizabeth reference range : <=37. The reference range was not used to interpr et this result as margaret l/abnormal. [facility] HospitalRhiecljXJBWQPGEWZYT6981-56-02 18:46:00 Test Item Value Reference Range Interpretation Comments Total Protein (test code = Total 6.9 6.4-8.4 Protein) [facility]UtcrtqmTMRSGOMLRX1825-13-16 18:46:00 Test Item Value Reference Range Interpretation Comments Eosinophils (test code = 4.2 See_Comment [A utomated message] The Eosinophils) system which ge nerated this result tra nsmitted reference range : <=4.0. The reference r mitra was not used to int erpret this result as normal/abnormal . [facility] CenterMwsliijOYPAXBOEJG3925-36-22 18:46:00 Test Item Value Reference Range Interpretation Comments Segs (test code = Segs) 56.4 45.0-75.0 [facility] CenterYnqajkhRIIPNPSHIW6349-59-21 18:46:00 Test Item Value Reference Range Interpretation Comments Monocytes (test code = Monocytes) 10.3 2.0-12.0 [facility] CenterRdblfcqUSBDFFKGXM0594-58-08 18:46:00 Test Item Value Reference Range Interpretation Comments Lymphocytes (test code = Lymphocytes) 28.0 20.0-40.0 [facility] CenterUbhrbjkRQRCVUBFWO0738-98-65 18:46:00 Test Item Value Reference Range Interpretation Comments Monocytes # (test code 0.5 See_Comment [Aut omated message] The = Monocytes #) system which generated this result tra nsmitted reference range : <=0.8. The reference r mitra was not used to int erpret this result as normal/abnormal . [facility] CenterRsxndyrROSPYPVHBS8038-13-38 18:46:00 Test Item Value Reference Range Interpretation Comments Basophils (test code = 1.1 See_Comment [Aut omated message] The Basophils) system which ge nerated this result tra nsmitted reference range : <=1.0. The reference r mitra was not used to int erpret this result as normal/abnormal . [facility] CenterZypdhlkUINEOPMSPG4667-23-88 18:46:00 Test Item Value Reference Range Interpretation Comments Lymphocytes # (test code = Lymphocytes 1.5 1.0-5.5 #) [facility] CenterHrcpamoOAOVXNBRZK6107-95-31 18:46:00 Test Item Value Reference Range Interpretation Comments Segs-Bands # (test code = Segs-Bands #) 2.9 1.5-8.1 [facility] CenterVzsmqngUPXANOFNKN7914-79-32 18:46:00 Test Item Value Reference Range Interpretation Comments Eosinophils # (test code 0.2 See_Comment [A utomated message] The = Eosinophils #) system whic h generated this result tra nsmitted reference range : <=0.5. The reference r mitra was not used to int erpret this result as normal/abnormal . [facility] CenterYfdtzuvZNNDEAKAJX0873-00-84 18:46:00 Test Item Value Reference Range Interpretation Comments Basophils # (test code 0.1 See_Comment [Aut omated message] The = Basophils #) system which generated this result tra nsmitted reference range : <=0.2. The reference r mitra was not used to int erpret this result as normal/abnormal . [facility] CenterMesmdvaTGKEGJNUZD7304-58-12 18:46:00 Test Item Value Reference Range Interpretation Comments PT (test code = PT) 11.2 s 12.0-14.7 [facility] CenterCfxuqbfHBWMINMCIY8042-25-90 18:46:00 Test Item Value Reference Range Interpretation Comments INR (test code = INR) 0.82 0.85-1.17 [facility] CenterNxgxwecPWVWTJIUOL6147-81-11 18:46:00 Test Item Value Reference Range Interpretation Comments PTT (test code = PTT) 28.6 s 22.9-35.8 [facility] CenterWurwzrlIJGPWFPJIV9847-28-39 18:46:00 Test Item Value Reference Range Interpretation Comments MPV (test code = MPV) 8.1 7.4-10.4 [facility] CenterTmyiwcyZTSKQPPCIT1089-48-40 18:46:00 Test Item Value Reference Range Interpretation Comments Platelet (test code = Platelet) 301 133-450 [facility] CenterCjcwjttBRSUYZQJJE2413-98-04 18:46:00 Test Item Value Reference Range Interpretation Comments RDW (test code = RDW) 14.5 11.5-14.5 [facility] CenterWrzcpoiXGZSQUSRUJ9472-42-47 18:46:00 Test Item Value Reference Range Interpretation Comments RBC (test code = RBC) 4.84 4.70-6.10 [facility] CenterUmfwhysYVLLGHNMSU5543-51-57 18:46:00 Test Item Value Reference Range Interpretation Comments Hgb (test code = Hgb) 14.4 14.0-18.0 [facility] CenterQnqvfhkVJBJNDDQWR8674-24-53 18:46:00 Test Item Value Reference Range Interpretation Comments WBC (test code = WBC) 5.2 3.7-10.4 [facility]BfeiglkSNRNMSAXSX8611-96-36 18:46:00 Test Item Value Reference Range Interpretation Comments MCH (test code = MCH) 29.8 pg 27.0-31.0 [facility]QdwhtduUGQEWOMMRC4295-91-20 18:46:00 Test Item Value Reference Range Interpretation Comments MCV (test code = MCV) 92.0 80.0-94.0 [facility] HospitalCntnhmgSDQEZPNKLG0726-52-58 18:46:00 Test Item Value Reference Range Interpretation Comments Hct (test code = Hct) 44.5 42.0-54.0 [facility] NortheastIaoooraKOPALSTHPL2106-76-23 18:46:00 Test Item Value Reference Range Interpretation Comments MCHC (test code = MCHC) 32.4 32.0-36.0 [facility] NortheastBfrukbrOQUFWKVDAD4419-41-41 18:46:00 Test Item Value Reference Range Interpretation Comments [place]-Hep C Ab (test Negative *NA*(07/22/14 code = [place]-Hep C 1:46 PM) Ab) [facility] AND [id number] 18:46:00 Test Item Value Reference Range Interpretation Comments UA Urobilinogen (test code = UA <=1.0 mg/dL 0.1-1.0 Urobilinogen) [facility] AND [id number] 18:46:00 Test Item Value Reference Range Interpretation Comments UA Sq Epi (test code = UA Sq Epi) None Seen [facility] AND [id number] 18:46:00 Test Item Value Reference Range Interpretation Comments UA Leuk Est (test Negative (07/22/14 1:46 code = UA Leuk Est) PM) [facility] AND [id number] 18:46:00 Test Item Value Reference Range Interpretation Comments UA Nitrite (test code Negative (07/22/14 1:46 = UA Nitrite) PM) [facility] AND [id number] 18:46:00 Test Item Value Reference Range Interpretation Comments UA Blood (test code = Negative (07/22/14 1:46 UA Blood) PM) [facility] AND [id number] 18:46:00 Test Item Value Reference Range Interpretation Comments UA Ketones (test code = UA Negative mg/dL Ketones) [facility] AND [id number] 18:46:00 Test Item Value Reference Range Interpretation Comments UA Bili (test code = Negative *NA*(07/22/14 UA Bili) 1:46 PM) [facility] AND [id number] 18:46:00 Test Item Value Reference Range Interpretation Comments UA Bacteria (test code = UA Occasional /HPF Bacteria) [facility] AND [id number] 18:46:00 Test Item Value Reference Range Interpretation Comments UA RBC (test code = no gt See_Comment [Automa elizabeth message] The UA RBC) system which ge nerated this result transmit elizabeth reference range : <=2. The reference range was not used to interpr et this result as margaret l/abnormal. [facility] AND [id number] 18:46:00 Test Item Value Reference Range Interpretation Comments UA WBC (test code = 1 See_Comment [Automa elizabeth message] The UA WBC) system which ge nerated this result transmit elizabeth reference range : <=5. The reference range was not used to interpr et this result as margaret l/abnormal. [facility] AND [id number] 18:46:00 Test Item Value Reference Range Interpretation Comments UA Glucose (test code = UA Glucose) 30 mg/dL [facility] AND [id number] 18:46:00 Test Item Value Reference Range Interpretation Comments UA Protein (test code = UA Negative mg/dL Protein) [facility] AND [id number] 18:46:00 Test Item Value Reference Range Interpretation Comments UA pH (test code = UA pH) 6.5 5.0-8.0 [facility] AND [id number] 18:46:00 Test Item Value Reference Range Interpretation Comments UA Turbidity (test code = Clear (07/22/14 1:46 UA Turbidity) PM) [facility] AND [id number] 18:46:00 Test Item Value Reference Range Interpretation Comments UA Spec Grav (test code = UA Spec Grav) 1.010 [facility] AND [id number] 18:46:00 Test Item Value Reference Range Interpretation Comments UA Color (test code = Light Yellow UA Color) *NA*(07/22/14 1:46 PM) [facility]2015-06-09 18:46:00 Test Item Value Reference Range Interpretation Comments Magnesium Lvl (test code = Magnesium 1.8 1.8-2.4 Lvl) [facility] HospitalSnajzjmVRAUAFUCVSQH0942-77-95 18:46:00 Test Item Value Reference Range Interpretation Comments AGAP (test code = AGAP) 13.2 10.0-20.0 [facility] HospitalAnajlibAXEQDRBWMPKG1729-14-38 18:46:00 Test Item Value Reference Range Interpretation Comments B/C Ratio (test code = B/C Ratio) 18 6-25 [facility] HospitalIivrgebGGKPFDDVPGZF6364-78-97 18:46:00 Test Item Value Reference Range Interpretation Comments A/G Ratio (test code = A/G Ratio) 1.1 0.7-1.6 [facility] HospitalEtemsbaNJYNYZLEBLMC6866-64-03 18:46:00 Test Item Value Reference Range Interpretation Comments Globulin (test code = Globulin) 3.3 2.0-4.0 [facility] HospitalXexycbxBRQWAJCTWEAO4825-20-80 18:46:00 Test Item Value Reference Range Interpretation Comments eGFR (test code = eGFR) 99 [facility] HospitalVpslbmvLWJZXFIWHPAI3524-07-39 18:46:00 Test Item Value Reference Range Interpretation Comments Calcium Lvl (test code = Calcium Lvl) 9.0 8.5-10.5 [facility] HospitalRvgbpjdBDFLASIWTZWQ0381-27-66 18:46:00 Test Item Value Reference Range Interpretation Comments Chloride Lvl (test code = Chloride Lvl) 106 95-109 [facility] HospitalGscuzuhEWSTGUMABLLJ4277-22-05 18:46:00 Test Item Value Reference Range Interpretation Comments Creatinine Lvl (test code = Creatinine 0.9 0.5-1.4 Lvl) [facility] HospitalKeantndUUETDBNCVFOJ6732-41-10 18:46:00 Test Item Value Reference Range Interpretation Comments Potassium Lvl (test code = Potassium 4.2 3.5-5.1 Lvl) [facility] HospitalMozwvuzZHMKRCGJFMUG1188-96-92 18:46:00 Test Item Value Reference Range Interpretation Comments Sodium Lvl (test code = Sodium Lvl) 139 135-145 [facility] HospitalUhnqmzlBLLDEZOACNGN1470-89-58 18:46:00 Test Item Value Reference Range Interpretation Comments CO2 (test code = CO2) 24 24-32 [facility] HospitalKdshllcFPIOSFKGEAFM3039-43-34 18:46:00 Test Item Value Reference Range Interpretation Comments BUN (test code = BUN) 16 7-22 [facility] HospitalWjcnbvuHGMXQCJOZGCW4882-70-49 18:46:00 Test Item Value Reference Range Interpretation Comments Glucose Lvl (test code = Glucose Lvl) 141 70-99 [facility] HospitalIghrndpZDEZXPXLMCLP0892-13-11 18:46:00 Test Item Value Reference Range Interpretation Comments Albumin Lvl (test code = Albumin Lvl) 3.6 3.5-5.0 [facility] HospitalHscknluWEZCIMUVMSVQ4331-72-85 18:46:00 Test Item Value Reference Range Interpretation Comments Alk Phos (test code = Alk Phos) 65 39-136 [facility] HospitalIuqkwdcAVCBZTSYXXDI4514-76-06 18:46:00 Test Item Value Reference Range Interpretation Comments Bili Total (test code = Bili Total) 0.3 0.2-1.3 [facility] HospitalXbxtrjnUYAJBMIPTJDQ1653-42-43 18:46:00 Test Item Value Reference Range Interpretation Comments ALT (test code = ALT) 100 See_Comment [Auto mated message] The system which ge nerated this result transmit elizabeth reference range : <=65. The reference range was not used to interpr et this result as margaret l/abnormal. [facility] HospitalDpltzfqBGRRPIAQBQBL2678-18-23 18:46:00 Test Item Value Reference Range Interpretation Comments AST (test code = AST) 53 See_Comment [Auto mated message] The system which ge nerated this result transmit elizabeth reference range : <=37. The reference range was not used to interpr et this result as margaret l/abnormal. [facility] HospitalBdlewwwGODZIYPPEIKL7460-42-10 18:46:00 Test Item Value Reference Range Interpretation Comments Total Protein (test code = Total 6.9 6.4-8.4 Protein) [facility] CenterVismrebODDHJZDSFH0887-59-93 18:46:00 Test Item Value Reference Range Interpretation Comments Eosinophils (test code = 4.2 See_Comment [A utomated message] The Eosinophils) system which ge nerated this result tra nsmitted reference range : <=4.0. The reference r mitra was not used to int erpret this result as normal/abnormal . [facility] CenterBmxeoipXRKYTITFGO1843-24-31 18:46:00 Test Item Value Reference Range Interpretation Comments Segs (test code = Segs) 56.4 45.0-75.0 [facility] CenterLssiztgZXXVRLSIZA2112-43-83 18:46:00 Test Item Value Reference Range Interpretation Comments Monocytes (test code = Monocytes) 10.3 2.0-12.0 [facility] CenterSqfajenOCOFISHBLX6152-86-81 18:46:00 Test Item Value Reference Range Interpretation Comments Lymphocytes (test code = Lymphocytes) 28.0 20.0-40.0 [facility] CenterYnnogvoIYENBJDKXM7612-66-14 18:46:00 Test Item Value Reference Range Interpretation Comments Monocytes # (test code 0.5 See_Comment [Aut omated message] The = Monocytes #) system which generated this result tra nsmitted reference range : <=0.8. The reference r mitra was not used to int erpret this result as normal/abnormal . [facility] CenterGvgqdkcBSKGCBSHAG4266-89-89 18:46:00 Test Item Value Reference Range Interpretation Comments Basophils (test code = 1.1 See_Comment [Aut omated message] The Basophils) system which ge nerated this result tra nsmitted reference range : <=1.0. The reference r mitra was not used to int erpret this result as normal/abnormal . [facility] CenterVewazgmYETECWIEYN4503-05-29 18:46:00 Test Item Value Reference Range Interpretation Comments Lymphocytes # (test code = Lymphocytes 1.5 1.0-5.5 #) [facility] CenterMgmeepdGBMSNODRMU7909-11-11 18:46:00 Test Item Value Reference Range Interpretation Comments Segs-Bands # (test code = Segs-Bands #) 2.9 1.5-8.1 [facility] CenterUuwlqgvSOVAAKIOJV6336-91-88 18:46:00 Test Item Value Reference Range Interpretation Comments Eosinophils # (test code 0.2 See_Comment [A utomated message] The = Eosinophils #) system ic h generated this result tra nsmitted reference range : <=0.5. The reference r mitra was not used to int erpret this result as normal/abnormal . [facility] CenterChcdbgnLRQNOYIYOK2036-46-01 18:46:00 Test Item Value Reference Range Interpretation Comments Basophils # (test code 0.1 See_Comment [Aut omated message] The = Basophils #) system which generated this result tra nsmitted reference range : <=0.2. The reference r mitra was not used to int erpret this result as normal/abnormal . [facility] CenterTgbcxyfBUNTNTBIFJ3309-42-81 18:46:00 Test Item Value Reference Range Interpretation Comments PT (test code = PT) 11.2 s 12.0-14.7 [facility] CenterWchlzqvPXUJVXWHEH5176-14-06 18:46:00 Test Item Value Reference Range Interpretation Comments INR (test code = INR) 0.82 0.85-1.17 [facility] CenterJsrmwucEORXUDGDVA4720-99-08 18:46:00 Test Item Value Reference Range Interpretation Comments PTT (test code = PTT) 28.6 s 22.9-35.8 [facility] CenterOumgfaeZYIEIUUHLO3421-49-93 18:46:00 Test Item Value Reference Range Interpretation Comments MPV (test code = MPV) 8.1 7.4-10.4 [facility] CenterLqnvhslBHSMYNUYVI4081-83-60 18:46:00 Test Item Value Reference Range Interpretation Comments Platelet (test code = Platelet) 301 133-450 [facility] CenterVwywzfjMEAUUWFZWG8879-91-06 18:46:00 Test Item Value Reference Range Interpretation Comments RDW (test code = RDW) 14.5 11.5-14.5 [facility] CenterYdpptyzWLJTQXZWDJ0605-83-64 18:46:00 Test Item Value Reference Range Interpretation Comments RBC (test code = RBC) 4.84 4.70-6.10 [facility] CenterXdtjdkyMDNATOXYBP0194-40-83 18:46:00 Test Item Value Reference Range Interpretation Comments Hgb (test code = Hgb) 14.4 14.0-18.0 [facility] CenterYsormmwYTMCCKDGMU5097-00-22 18:46:00 Test Item Value Reference Range Interpretation Comments WBC (test code = WBC) 5.2 3.7-10.4 [facility] CenterYcapmjsQUETYHZKSQ5103-84-25 18:46:00 Test Item Value Reference Range Interpretation Comments MCH (test code = MCH) 29.8 pg 27.0-31.0 [facility] CenterFmmgchrXRDHNZVYDI2073-61-94 18:46:00 Test Item Value Reference Range Interpretation Comments MCV (test code = MCV) 92.0 80.0-94.0 [facility] CenterRvevmyiGKATQODIJK6559-52-89 18:46:00 Test Item Value Reference Range Interpretation Comments Hct (test code = Hct) 44.5 42.0-54.0 [facility] CenterExvfzkdQGFNPMGYYD7444-62-63 18:46:00 Test Item Value Reference Range Interpretation Comments MCHC (test code = MCHC) 32.4 32.0-36.0 [facility]JdfkgruZIGLELLLWY1797-15-81 18:46:00 Test Item Value Reference Range Interpretation Comments [place]Hep C Ab (test Negative *NA*(07/22/14 code = [place]-Hep C 1:46 PM) Ab) [facility] AND [id number] 18:46:00 Test Item Value Reference Range Interpretation Comments UA Urobilinogen (test code = UA <=1.0 mg/dL 0.1-1.0 Urobilinogen) [facility] AND [id number] 18:46:00 Test Item Value Reference Range Interpretation Comments UA Sq Epi (test code = UA Sq Epi) None Seen [facility] AND [id number] 18:46:00 Test Item Value Reference Range Interpretation Comments UA Leuk Est (test Negative (07/22/14 1:46 code = UA Leuk Est) PM) [facility] AND [id number] 18:46:00 Test Item Value Reference Range Interpretation Comments UA Nitrite (test code Negative (07/22/14 1:46 = UA Nitrite) PM) [facility] AND [id number] 18:46:00 Test Item Value Reference Range Interpretation Comments UA Blood (test code = Negative (07/22/14 1:46 UA Blood) PM) [facility] AND [id number] 18:46:00 Test Item Value Reference Range Interpretation Comments UA Ketones (test code = UA Negative mg/dL Ketones) [facility] AND [id number] 18:46:00 Test Item Value Reference Range Interpretation Comments UA Bili (test code = Negative *NA*(07/22/14 UA Bili) 1:46 PM) [facility] AND [id number] 18:46:00 Test Item Value Reference Range Interpretation Comments UA Bacteria (test code = UA Occasional /HPF Bacteria) [facility] AND [id number] 18:46:00 Test Item Value Reference Range Interpretation Comments UA RBC (test code = no gt See_Comment [Automa elizabeth message] The UA RBC) system which ge nerated this result transmit elizabeth reference range : <=2. The reference range was not used to interpr et this result as margaret l/abnormal. [facility] AND [id number] 18:46:00 Test Item Value Reference Range Interpretation Comments UA WBC (test code = 1 See_Comment [Automa elizabeth message] The UA WBC) system which ge nerated this result transmit elizabeth reference range : <=5. The reference range was not used to interpr et this result as margaret l/abnormal. [facility] AND [id number] 18:46:00 Test Item Value Reference Range Interpretation Comments UA Glucose (test code = UA Glucose) 30 mg/dL [facility] AND [id number] 18:46:00 Test Item Value Reference Range Interpretation Comments UA Protein (test code = UA Negative mg/dL Protein) [facility] AND [id number] 18:46:00 Test Item Value Reference Range Interpretation Comments UA pH (test code = UA pH) 6.5 5.0-8.0 [facility] AND [id number] 18:46:00 Test Item Value Reference Range Interpretation Comments UA Turbidity (test code = Clear (07/22/14 1:46 UA Turbidity) PM) [facility] AND [id number] 18:46:00 Test Item Value Reference Range Interpretation Comments UA Spec Grav (test code = UA Spec Grav) 1.010 [facility] AND [id number] 18:46:00 Test Item Value Reference Range Interpretation Comments UA Color (test code = Light Yellow UA Color) *NA*(07/22/14 1:46 PM) [facility] [id number] 18:46:00 Test Item Value Reference Range Interpretation Comments Magnesium Lvl (test code = Magnesium 1.8 1.8-2.4 Lvl) [facility]YhxhnjfAYYBNMNQKDOA3376-60-45 18:46:00 Test Item Value Reference Range Interpretation Comments AGAP (test code = AGAP) 13.2 10.0-20.0 [facility] HospitalXrfbfdwBYVFNCIJOWZV9962-52-43 18:46:00 Test Item Value Reference Range Interpretation Comments B/C Ratio (test code = B/C Ratio) 18 6-25 [facility] HospitalGberfnsMFUKQWLLMXKQ3567-05-10 18:46:00 Test Item Value Reference Range Interpretation Comments A/G Ratio (test code = A/G Ratio) 1.1 0.7-1.6 [facility] HospitalDxentlpBQVNLFTUWDXH4089-22-29 18:46:00 Test Item Value Reference Range Interpretation Comments Globulin (test code = Globulin) 3.3 2.0-4.0 [facility] HospitalZjhtzoeYFFRDSPOMHXV2475-19-24 18:46:00 Test Item Value Reference Range Interpretation Comments eGFR (test code = eGFR) 99 [facility] HospitalOsgspexGSMFHLRTGYFD3224-59-70 18:46:00 Test Item Value Reference Range Interpretation Comments Calcium Lvl (test code = Calcium Lvl) 9.0 8.5-10.5 [facility] HospitalDjrvhifARORAILVOMCR5211-74-16 18:46:00 Test Item Value Reference Range Interpretation Comments Chloride Lvl (test code = Chloride Lvl) 106 95-109 [facility] HospitalBjibmchEPRZFTIPYAOW1436-72-85 18:46:00 Test Item Value Reference Range Interpretation Comments Creatinine Lvl (test code = Creatinine 0.9 0.5-1.4 Lvl) [facility] HospitalCznupipMQLIAAEZTIXD7200-28-33 18:46:00 Test Item Value Reference Range Interpretation Comments Potassium Lvl (test code = Potassium 4.2 3.5-5.1 Lvl) [facility] HospitalOzyfvaxORSDROVLNMMZ5662-43-40 18:46:00 Test Item Value Reference Range Interpretation Comments Sodium Lvl (test code = Sodium Lvl) 139 135-145 [facility] HospitalCkmakqcHTAXSEIAIVTG8607-83-28 18:46:00 Test Item Value Reference Range Interpretation Comments CO2 (test code = CO2) 24 24-32 [facility] HospitalGnutylkSSHEGTAVELHX7590-49-45 18:46:00 Test Item Value Reference Range Interpretation Comments BUN (test code = BUN) 16 7-22 [facility] HospitalYbxrjbjORHGEHCHECTD5898-86-65 18:46:00 Test Item Value Reference Range Interpretation Comments Glucose Lvl (test code = Glucose Lvl) 141 70-99 [facility] HospitalKjjednkOLFXUHHUIWKP7388-48-15 18:46:00 Test Item Value Reference Range Interpretation Comments Albumin Lvl (test code = Albumin Lvl) 3.6 3.5-5.0 [facility] HospitalJanjrqoIQRLAUQOWFIC6358-72-84 18:46:00 Test Item Value Reference Range Interpretation Comments Alk Phos (test code = Alk Phos) 65 39-136 [facility] HospitalRufbablUQEORVFGFOQD5366-03-50 18:46:00 Test Item Value Reference Range Interpretation Comments Bili Total (test code = Bili Total) 0.3 0.2-1.3 [facility] HospitalGqzrjshOUDICKEUYGTU4955-76-39 18:46:00 Test Item Value Reference Range Interpretation Comments ALT (test code = ALT) 100 See_Comment [Auto mated message] The system which ge nerated this result transmit elizabeth reference range : <=65. The reference range was not used to interpr et this result as margaret l/abnormal. [facility] HospitalUcblmdgSVHUECZXXKMA7272-71-62 18:46:00 Test Item Value Reference Range Interpretation Comments AST (test code = AST) 53 See_Comment [Auto mated message] The system which ge nerated this result transmit elizabeth reference range : <=37. The reference range was not used to interpr et this result as margaret l/abnormal. [facility] HospitalWfgzqiqHETZCTCQYBBJ1252-07-89 18:46:00 Test Item Value Reference Range Interpretation Comments Total Protein (test code = Total 6.9 6.4-8.4 Protein) [facility]XetvzhlHXVZQZEEYM4516-84-00 18:46:00 Test Item Value Reference Range Interpretation Comments Eosinophils (test code = 4.2 See_Comment [A utomated message] The Eosinophils) system which ge nerated this result tra nsmitted reference range : <=4.0. The reference r mitra was not used to int erpret this result as normal/abnormal . [facility] CenterUbxbqalUPTCUQUROP3056-72-82 18:46:00 Test Item Value Reference Range Interpretation Comments Segs (test code = Segs) 56.4 45.0-75.0 [facility] CenterUaatigxTXORNLIDQT2311-42-07 18:46:00 Test Item Value Reference Range Interpretation Comments Monocytes (test code = Monocytes) 10.3 2.0-12.0 [facility] CenterRllwzddJZIWJPUBOQ8407-80-30 18:46:00 Test Item Value Reference Range Interpretation Comments Lymphocytes (test code = Lymphocytes) 28.0 20.0-40.0 [facility] CenterHewhzdsWIKPBQAVSY9878-06-98 18:46:00 Test Item Value Reference Range Interpretation Comments Monocytes # (test code 0.5 See_Comment [Aut omated message] The = Monocytes #) system which generated this result tra nsmitted reference range : <=0.8. The reference r mitra was not used to int erpret this result as normal/abnormal . [facility] CenterSqeacqmBMRZQKJEMM6607-09-39 18:46:00 Test Item Value Reference Range Interpretation Comments Basophils (test code = 1.1 See_Comment [Aut omated message] The Basophils) system which ge nerated this result tra nsmitted reference range : <=1.0. The reference r mitra was not used to int erpret this result as normal/abnormal . [facility] CenterGbuqzhuBMXRPLUCRD3507-17-89 18:46:00 Test Item Value Reference Range Interpretation Comments Lymphocytes # (test code = Lymphocytes 1.5 1.0-5.5 #) [facility] CenterBpjmgodHYHIUYKGZT1536-41-15 18:46:00 Test Item Value Reference Range Interpretation Comments Segs-Bands # (test code = Segs-Bands #) 2.9 1.5-8.1 [facility] CenterYzzlbpsDILTFDFSAY7810-91-95 18:46:00 Test Item Value Reference Range Interpretation Comments Eosinophils # (test code 0.2 See_Comment [A utomated message] The = Eosinophils #) system whic h generated this result tra nsmitted reference range : <=0.5. The reference r mitra was not used to int erpret this result as normal/abnormal . [facility] CenterFmtpqgzLZOORMIJSK3897-52-71 18:46:00 Test Item Value Reference Range Interpretation Comments Basophils # (test code 0.1 See_Comment [Aut omated message] The = Basophils #) system which generated this result tra nsmitted reference range : <=0.2. The reference r mitra was not used to int erpret this result as normal/abnormal . [facility] CenterTkuuqrjPZMXTHQYWK2020-21-76 18:46:00 Test Item Value Reference Range Interpretation Comments PT (test code = PT) 11.2 s 12.0-14.7 [facility] CenterRxpoxdvZONQHRKEUI8948-26-16 18:46:00 Test Item Value Reference Range Interpretation Comments INR (test code = INR) 0.82 0.85-1.17 [facility] CenterVbnrmzzQUOXFOQHHZ7219-67-54 18:46:00 Test Item Value Reference Range Interpretation Comments PTT (test code = PTT) 28.6 s 22.9-35.8 [facility] CenterSxkotemFWVUOJGGXQ8181-31-75 18:46:00 Test Item Value Reference Range Interpretation Comments MPV (test code = MPV) 8.1 7.4-10.4 [facility]DdtmqqvBIFEAVZPLQ7214-93-35 18:46:00 Test Item Value Reference Range Interpretation Comments Platelet (test code = Platelet) 301 133-450 [facility] HospitalLuivolqRQJFRELYAJ3853-32-99 18:46:00 Test Item Value Reference Range Interpretation Comments RDW (test code = RDW) 14.5 11.5-14.5 [facility] HospitalUdyltwnAFQMKSRTVM2434-65-07 18:46:00 Test Item Value Reference Range Interpretation Comments RBC (test code = RBC) 4.84 4.70-6.10 [facility] HospitalXajfrzlYQFENBAOFP9366-51-22 18:46:00 Test Item Value Reference Range Interpretation Comments Hgb (test code = Hgb) 14.4 14.0-18.0 [facility] HospitalFktenfgZBUAJEDQKH8136-76-48 18:46:00 Test Item Value Reference Range Interpretation Comments WBC (test code = WBC) 5.2 3.7-10.4 [facility] HospitalAijgcowNNTVRXWFVW6323-23-00 18:46:00 Test Item Value Reference Range Interpretation Comments MCH (test code = MCH) 29.8 pg 27.0-31.0 [facility] HospitalQftrsrnGRVGPQIQOZ0223-09-96 18:46:00 Test Item Value Reference Range Interpretation Comments MCV (test code = MCV) 92.0 80.0-94.0 [facility]nes[facility]bcFWDIJQFRZR2618-35-81 18:46:00 Test Item Value Reference Range Interpretation Comments Hct (test code = Hct) 44.5 42.0-54.0 [facility]IwrxnynORUFLOWAVS5718-74-93 18:46:00 Test Item Value Reference Range Interpretation Comments MCHC (test code = MCHC) 32.4 32.0-36.0 [facility] NortheastQyatmgtCJFDJISOSY5383-54-12 18:46:00 Test Item Value Reference Range Interpretation Comments [place]-Hep C Ab (test Negative *NA*(07/22/14 code = [place]-Hep C 1:46 PM) Ab) [facility] [id number] 18:46:00 Test Item Value Reference Range Interpretation Comments UA Urobilinogen (test code = UA <=1.0 mg/dL 0.1-1.0 Urobilinogen) [facility] AND [id number] 18:46:00 Test Item Value Reference Range Interpretation Comments UA Sq Epi (test code = UA Sq Epi) None Seen [facility] AND [id number] 18:46:00 Test Item Value Reference Range Interpretation Comments UA Leuk Est (test Negative (07/22/14 1:46 code = UA Leuk Est) PM) [facility] AND [id number] 18:46:00 Test Item Value Reference Range Interpretation Comments UA Nitrite (test code Negative (07/22/14 1:46 = UA Nitrite) PM) [facility] AND [id number] 18:46:00 Test Item Value Reference Range Interpretation Comments UA Blood (test code = Negative (07/22/14 1:46 UA Blood) PM) [facility] AND [id number] 18:46:00 Test Item Value Reference Range Interpretation Comments UA Ketones (test code = UA Negative mg/dL Ketones) [facility] AND [id number] 18:46:00 Test Item Value Reference Range Interpretation Comments UA Bili (test code = Negative *NA*(07/22/14 UA Bili) 1:46 PM) [facility] AND [id number] 18:46:00 Test Item Value Reference Range Interpretation Comments UA Bacteria (test code = UA Occasional /HPF Bacteria) [facility] AND [id number] 18:46:00 Test Item Value Reference Range Interpretation Comments UA RBC (test code = no gt See_Comment [Automa elizabeth message] The UA RBC) system which ge nerated this result transmit elizabeth reference range : <=2. The reference range was not used to interpr et this result as margaret l/abnormal. [facility] AND [id number] 18:46:00 Test Item Value Reference Range Interpretation Comments UA WBC (test code = 1 See_Comment [Automa elizabeth message] The UA WBC) system which ge nerated this result transmit elizabeth reference range : <=5. The reference range was not used to interpr et this result as margaret l/abnormal. [facility] AND [id number] 18:46:00 Test Item Value Reference Range Interpretation Comments UA Glucose (test code = UA Glucose) 30 mg/dL [facility] AND [id number] 18:46:00 Test Item Value Reference Range Interpretation Comments UA Protein (test code = UA Negative mg/dL Protein) [facility] AND [id number] 18:46:00 Test Item Value Reference Range Interpretation Comments UA pH (test code = UA pH) 6.5 5.0-8.0 [facility] AND [id number] 18:46:00 Test Item Value Reference Range Interpretation Comments UA Turbidity (test code = Clear (07/22/14 1:46 UA Turbidity) PM) [facility] AND [id number] 18:46:00 Test Item Value Reference Range Interpretation Comments UA Spec Grav (test code = UA Spec Grav) 1.010 [facility] AND [id number] 18:46:00 Test Item Value Reference Range Interpretation Comments UA Color (test code = Light Yellow UA Color) *NA*(07/22/14 1:46 PM) [facility] [id number] 18:46:00 Test Item Value Reference Range Interpretation Comments Magnesium Lvl (test code = Magnesium 1.8 1.8-2.4 Lvl) [facility] HospitalErcgrylUOWIEFHULXTX6727-21-18 18:46:00 Test Item Value Reference Range Interpretation Comments AGAP (test code = AGAP) 13.2 10.0-20.0 [facility] HospitalNtvuctmDNJMWOWXFKAW9492-09-71 18:46:00 Test Item Value Reference Range Interpretation Comments B/C Ratio (test code = B/C Ratio) 18 6-25 [facility] HospitalHuktxibVFJAUGFLWRJG1416-32-94 18:46:00 Test Item Value Reference Range Interpretation Comments A/G Ratio (test code = A/G Ratio) 1.1 0.7-1.6 [facility] HospitalMitigjiCPPXJUNRLSPD2968-54-09 18:46:00 Test Item Value Reference Range Interpretation Comments Globulin (test code = Globulin) 3.3 2.0-4.0 [facility] HospitalToptlhaVSHSXYFXUENX1499-90-43 18:46:00 Test Item Value Reference Range Interpretation Comments eGFR (test code = eGFR) 99 [facility] HospitalDbtpxmkRRAKPLAPPGTM3795-57-73 18:46:00 Test Item Value Reference Range Interpretation Comments Calcium Lvl (test code = Calcium Lvl) 9.0 8.5-10.5 [facility] HospitalVfzyketIBVRYQCGMRTI0609-50-95 18:46:00 Test Item Value Reference Range Interpretation Comments Chloride Lvl (test code = Chloride Lvl) 106 95-109 [facility] HospitalPbbgrlhRPDGSQIZZNSE8990-45-81 18:46:00 Test Item Value Reference Range Interpretation Comments Creatinine Lvl (test code = Creatinine 0.9 0.5-1.4 Lvl) [facility] HospitalNkbpjvnAWLCRSSLGTPZ9120-49-76 18:46:00 Test Item Value Reference Range Interpretation Comments Potassium Lvl (test code = Potassium 4.2 3.5-5.1 Lvl) [facility] HospitalVesrzlpJHKCQFZADBJQ4051-99-96 18:46:00 Test Item Value Reference Range Interpretation Comments Sodium Lvl (test code = Sodium Lvl) 139 135-145 [facility] HospitalAskiifmPBLDFDFLKWJL8228-19-66 18:46:00 Test Item Value Reference Range Interpretation Comments CO2 (test code = CO2) 24 24-32 [facility] HospitalBonfnriHOKLFKWRDVUQ4175-19-97 18:46:00 Test Item Value Reference Range Interpretation Comments BUN (test code = BUN) 16 7-22 [facility] HospitalGhrzwheZRZNUWPJNWRH7888-34-03 18:46:00 Test Item Value Reference Range Interpretation Comments Glucose Lvl (test code = Glucose Lvl) 141 70-99 [facility] HospitalNpgacuwOYVBTVUZTUKN4299-81-26 18:46:00 Test Item Value Reference Range Interpretation Comments Albumin Lvl (test code = Albumin Lvl) 3.6 3.5-5.0 [facility] HospitalAiftshqXZHUAAQXKSWB3789-67-14 18:46:00 Test Item Value Reference Range Interpretation Comments Alk Phos (test code = Alk Phos) 65 39-136 [facility] HospitalBagjlxqQZARPJZOTOUI0040-10-69 18:46:00 Test Item Value Reference Range Interpretation Comments Bili Total (test code = Bili Total) 0.3 0.2-1.3 [facility] HospitalWhorlqfLTMLVKMSIQLX5526-30-63 18:46:00 Test Item Value Reference Range Interpretation Comments ALT (test code = ALT) 100 See_Comment [Auto mated message] The system which ge nerated this result transmit elizabeth reference range : <=65. The reference range was not used to interpr et this result as margaret l/abnormal. [facility] HospitalUfhnmgpDSKPXMECCXYF8022-56-65 18:46:00 Test Item Value Reference Range Interpretation Comments AST (test code = AST) 53 See_Comment [Auto mated message] The system which ge nerated this result transmit elizabeth reference range : <=37. The reference range was not used to interpr et this result as margaret l/abnormal. [facility] HospitalStfltdeSQTIGVSHMFLN5190-07-17 18:46:00 Test Item Value Reference Range Interpretation Comments Total Protein (test code = Total 6.9 6.4-8.4 Protein) [facility] CenterRapjsglIGCYBXWLUQ0569-57-93 18:46:00 Test Item Value Reference Range Interpretation Comments Eosinophils (test code = 4.2 See_Comment [A utomated message] The Eosinophils) system which ge nerated this result tra nsmitted reference range : <=4.0. The reference r mitra was not used to int erpret this result as normal/abnormal . [facility] CenterFjpcdbaHSNENSLPBO5494-55-39 18:46:00 Test Item Value Reference Range Interpretation Comments Segs (test code = Segs) 56.4 45.0-75.0 [facility] CenterCkotvchDYYCKWMHYW0018-66-07 18:46:00 Test Item Value Reference Range Interpretation Comments Monocytes (test code = Monocytes) 10.3 2.0-12.0 [facility] CenterFfrnhomZPRJKZVHCJ9562-08-22 18:46:00 Test Item Value Reference Range Interpretation Comments Lymphocytes (test code = Lymphocytes) 28.0 20.0-40.0 [facility] CenterNkhtunbAPYWGCDKHY7521-55-09 18:46:00 Test Item Value Reference Range Interpretation Comments Monocytes # (test code 0.5 See_Comment [Aut omated message] The = Monocytes #) system which generated this result tra nsmitted reference range : <=0.8. The reference r mitra was not used to int erpret this result as normal/abnormal . [facility] CenterEfpzkxtFKHMAGNYYW8832-74-39 18:46:00 Test Item Value Reference Range Interpretation Comments Basophils (test code = 1.1 See_Comment [Aut omated message] The Basophils) system which ge nerated this result tra nsmitted reference range : <=1.0. The reference r mitra was not used to int erpret this result as normal/abnormal . [facility] CenterRfsfgfqHYTKHQRMQQ7121-15-52 18:46:00 Test Item Value Reference Range Interpretation Comments Lymphocytes # (test code = Lymphocytes 1.5 1.0-5.5 #) [facility] CenterQmvjpnsIFGNBWAGHQ5117-67-70 18:46:00 Test Item Value Reference Range Interpretation Comments Segs-Bands # (test code = Segs-Bands #) 2.9 1.5-8.1 [facility] CenterJqwbqiuXEDNHRKFNH0209-42-49 18:46:00 Test Item Value Reference Range Interpretation Comments Eosinophils # (test code 0.2 See_Comment [A utomated message] The = Eosinophils #) system whic h generated this result tra nsmitted reference range : <=0.5. The reference r mitra was not used to int erpret this result as normal/abnormal . [facility] CenterLdrflifAGLWQOZFBD6805-48-53 18:46:00 Test Item Value Reference Range Interpretation Comments Basophils # (test code 0.1 See_Comment [Aut omated message] The = Basophils #) system which generated this result tra nsmitted reference range : <=0.2. The reference r mitra was not used to int erpret this result as normal/abnormal . [facility] CenterTlfueizLCMJERKTZZ5400-16-92 18:46:00 Test Item Value Reference Range Interpretation Comments PT (test code = PT) 11.2 s 12.0-14.7 [facility] CenterFgldswyOKFHKHARGQ2809-51-05 18:46:00 Test Item Value Reference Range Interpretation Comments INR (test code = INR) 0.82 0.85-1.17 [facility] CenterUrjwzymWSSJJGDLZN1949-36-99 18:46:00 Test Item Value Reference Range Interpretation Comments PTT (test code = PTT) 28.6 s 22.9-35.8 [facility] CenterFkgwumaRRIQCOXDED3870-12-12 18:46:00 Test Item Value Reference Range Interpretation Comments MPV (test code = MPV) 8.1 7.4-10.4 [facility] CenterRswegjkPHVYIVYCDP2311-88-16 18:46:00 Test Item Value Reference Range Interpretation Comments Platelet (test code = Platelet) 301 133-450 [facility] CenterMlunzamVJLPFRNTTW4730-95-07 18:46:00 Test Item Value Reference Range Interpretation Comments RDW (test code = RDW) 14.5 11.5-14.5 [facility] CenterGwwheptYFCQROHSPT4831-81-02 18:46:00 Test Item Value Reference Range Interpretation Comments RBC (test code = RBC) 4.84 4.70-6.10 [facility] QnhdpfaLUDSYXUTGC3206-20-99 18:46:00 Test Item Value Reference Range Interpretation Comments Hgb (test code = Hgb) 14.4 14.0-18.0 [facility] QcmpzrcQOWEDOYEGU5768-43-74 18:46:00 Test Item Value Reference Range Interpretation Comments WBC (test code = WBC) 5.2 3.7-10.4 [facility] EmtkemxVWGRTFKEHS6142-90-77 18:46:00 Test Item Value Reference Range Interpretation Comments MCH (test code = MCH) 29.8 pg 27.0-31.0 [facility] CdmavgwTROOOZJFOF7580-95-88 18:46:00 Test Item Value Reference Range Interpretation Comments MCV (test code = MCV) 92.0 80.0-94.0 [facility]QsxzinxSKTQDCDOTS4690-44-25 18:46:00 Test Item Value Reference Range Interpretation Comments Hct (test code = Hct) 44.5 42.0-54.0 [facility]EcwnkwzFQRYYCQWSF5806-23-95 18:46:00 Test Item Value Reference Range Interpretation Comments MCHC (test code = MCHC) 32.4 32.0-36.0 [facility] NortheastTlnusigKODYCZKCNO9766-13-86 18:46:00 Test Item Value Reference Range Interpretation Comments [place]-Hep C Ab (test Negative *NA*(07/22/14 code = [place]-Hep C 1:46 PM) Ab) [facility] AND [id number] 18:46:00 Test Item Value Reference Range Interpretation Comments UA Urobilinogen (test code = UA <=1.0 mg/dL 0.1-1.0 Urobilinogen) [facility] AND [id number] 18:46:00 Test Item Value Reference Range Interpretation Comments UA Sq Epi (test code = UA Sq Epi) None Seen [facility] AND [id number] 18:46:00 Test Item Value Reference Range Interpretation Comments UA Leuk Est (test Negative (07/22/14 1:46 code = UA Leuk Est) PM) [facility] AND [id number] 18:46:00 Test Item Value Reference Range Interpretation Comments UA Nitrite (test code Negative (07/22/14 1:46 = UA Nitrite) PM) [facility] AND [id number] 18:46:00 Test Item Value Reference Range Interpretation Comments UA Blood (test code = Negative (07/22/14 1:46 UA Blood) PM) [facility] AND [id number] 18:46:00 Test Item Value Reference Range Interpretation Comments UA Ketones (test code = UA Negative mg/dL Ketones) [facility] AND [id number] 18:46:00 Test Item Value Reference Range Interpretation Comments UA Bili (test code = Negative *NA*(07/22/14 UA Bili) 1:46 PM) [facility] AND [id number] 18:46:00 Test Item Value Reference Range Interpretation Comments UA Bacteria (test code = UA Occasional /HPF Bacteria) [facility] AND [id number] 18:46:00 Test Item Value Reference Range Interpretation Comments UA RBC (test code = no gt See_Comment [Automa elizabeth message] The UA RBC) system which ge nerated this result transmit elizabeth reference range : <=2. The reference range was not used to interpr et this result as margaret l/abnormal. [facility] AND [id number] 18:46:00 Test Item Value Reference Range Interpretation Comments UA WBC (test code = 1 See_Comment [Automa elizabeth message] The UA WBC) system which ge nerated this result transmit elizabeth reference range : <=5. The reference range was not used to interpr et this result as margaret l/abnormal. [facility] AND [id number] 18:46:00 Test Item Value Reference Range Interpretation Comments UA Glucose (test code = UA Glucose) 30 mg/dL [facility] AND [id number] 18:46:00 Test Item Value Reference Range Interpretation Comments UA Protein (test code = UA Negative mg/dL Protein) [facility] AND [id number] 18:46:00 Test Item Value Reference Range Interpretation Comments UA pH (test code = UA pH) 6.5 5.0-8.0 [facility] AND [id number] 18:46:00 Test Item Value Reference Range Interpretation Comments UA Turbidity (test code = Clear (07/22/14 1:46 UA Turbidity) PM) [facility] AND [id number] 18:46:00 Test Item Value Reference Range Interpretation Comments UA Spec Grav (test code = UA Spec Grav) 1.010 [facility] [id number] 18:46:00 Test Item Value Reference Range Interpretation Comments UA Color (test code = Light Yellow UA Color) *NA*(07/22/14 1:46 PM) [facility] TSUBC3843-05-13 18:46:00 Test Item Value Reference Range Interpretation Comments Magnesium Lvl (test code = Magnesium 1.8 1.8-2.4 Lvl) [facility] HospitalYmqsgrlUBFMTZRZCAJV3880-22-06 18:46:00 Test Item Value Reference Range Interpretation Comments AGAP (test code = AGAP) 13.2 10.0-20.0 [facility] HospitalWyabopxCEXDISPDRHSY1231-08-72 18:46:00 Test Item Value Reference Range Interpretation Comments B/C Ratio (test code = B/C Ratio) 18 6-25 [facility] HospitalWnbwsmwAMZBIFEYNXOT9566-51-56 18:46:00 Test Item Value Reference Range Interpretation Comments A/G Ratio (test code = A/G Ratio) 1.1 0.7-1.6 [facility] HospitalDfpxfivXDVCKPBOBOJP4671-62-20 18:46:00 Test Item Value Reference Range Interpretation Comments Globulin (test code = Globulin) 3.3 2.0-4.0 [facility] HospitalVkzduckJGYAWUUBSEBX3892-63-36 18:46:00 Test Item Value Reference Range Interpretation Comments eGFR (test code = eGFR) 99 [facility] HospitalSietelgGCEZRJEWYYRH1806-77-53 18:46:00 Test Item Value Reference Range Interpretation Comments Calcium Lvl (test code = Calcium Lvl) 9.0 8.5-10.5 [facility] HospitalTufjbuxQNTCPDDLEJHH6891-66-72 18:46:00 Test Item Value Reference Range Interpretation Comments Chloride Lvl (test code = Chloride Lvl) 106 95-109 [facility] HospitalWrqjffzNPJUEXXEOGGO7652-95-89 18:46:00 Test Item Value Reference Range Interpretation Comments Creatinine Lvl (test code = Creatinine 0.9 0.5-1.4 Lvl) [facility] HospitalVxpgqgeKJRHJJIHDIEO2615-63-56 18:46:00 Test Item Value Reference Range Interpretation Comments Potassium Lvl (test code = Potassium 4.2 3.5-5.1 Lvl) [facility] HospitalDkjyccjCMFURAVACPAV4757-56-58 18:46:00 Test Item Value Reference Range Interpretation Comments Sodium Lvl (test code = Sodium Lvl) 139 135-145 [facility] HospitalZssgrutALWUSDHEFTFU9077-06-25 18:46:00 Test Item Value Reference Range Interpretation Comments CO2 (test code = CO2) 24 24-32 [facility] HospitalBpldnuiTWZHXMIRMBHC9376-51-14 18:46:00 Test Item Value Reference Range Interpretation Comments BUN (test code = BUN) 16 7-22 [facility] HospitalPlstotiTSVIEZDBSHNK7003-44-19 18:46:00 Test Item Value Reference Range Interpretation Comments Glucose Lvl (test code = Glucose Lvl) 141 70-99 [facility] HospitalDzsaxeaUJXVSALKKOUR9487-67-96 18:46:00 Test Item Value Reference Range Interpretation Comments Albumin Lvl (test code = Albumin Lvl) 3.6 3.5-5.0 [facility] HospitalFoxeygbWCTBHZENHJSC6725-66-34 18:46:00 Test Item Value Reference Range Interpretation Comments Alk Phos (test code = Alk Phos) 65 39-136 [facility] HospitalHjaocmjYUCXNSXVKYOL5191-97-92 18:46:00 Test Item Value Reference Range Interpretation Comments Bili Total (test code = Bili Total) 0.3 0.2-1.3 [facility] HospitalXrjuaobHDTBFBBRRMLA8502-62-80 18:46:00 Test Item Value Reference Range Interpretation Comments ALT (test code = ALT) 100 See_Comment [Auto mated message] The system which ge nerated this result transmit elizabeth reference range : <=65. The reference range was not used to interpr et this result as margaret l/abnormal. [facility] HospitalOriunoaZBWGKHCCSXDR9686-60-76 18:46:00 Test Item Value Reference Range Interpretation Comments AST (test code = AST) 53 See_Comment [Auto mated message] The system which ge nerated this result transmit elizabeth reference range : <=37. The reference range was not used to interpr et this result as margaret l/abnormal. [facility] HospitalPsmiddzFOZWZOPXLRLU7669-18-32 18:46:00 Test Item Value Reference Range Interpretation Comments Total Protein (test code = Total 6.9 6.4-8.4 Protein) [facility]EozyztlWLJSZPAVRM3981-53-18 18:46:00 Test Item Value Reference Range Interpretation Comments Eosinophils (test code = 4.2 See_Comment [A utomated message] The Eosinophils) system which ge nerated this result tra nsmitted reference range : <=4.0. The reference r mitra was not used to int erpret this result as normal/abnormal . [facility]IgqxxbeNFZCUEBWYK8459-66-45 18:46:00 Test Item Value Reference Range Interpretation Comments Segs (test code = Segs) 56.4 45.0-75.0 [facility] CenterKjgakoyLCAWHGRSNP8954-70-35 18:46:00 Test Item Value Reference Range Interpretation Comments Monocytes (test code = Monocytes) 10.3 2.0-12.0 [facility] CenterLqxbolgSVRKYUMLLC7208-11-71 18:46:00 Test Item Value Reference Range Interpretation Comments Lymphocytes (test code = Lymphocytes) 28.0 20.0-40.0 [facility] CenterLoytyznRNLVHMLXDR1514-10-28 18:46:00 Test Item Value Reference Range Interpretation Comments Monocytes # (test code 0.5 See_Comment [Aut omated message] The = Monocytes #) system which generated this result tra nsmitted reference range : <=0.8. The reference r mitra was not used to int erpret this result as normal/abnormal . [facility] CenterGizjbgxVZCNMOEZVE0162-76-38 18:46:00 Test Item Value Reference Range Interpretation Comments Basophils (test code = 1.1 See_Comment [Aut omated message] The Basophils) system which ge nerated this result tra nsmitted reference range : <=1.0. The reference r mitra was not used to int erpret this result as normal/abnormal . [facility] CenterZnasruxQEHZUNTGAR0283-75-81 18:46:00 Test Item Value Reference Range Interpretation Comments Lymphocytes # (test code = Lymphocytes 1.5 1.0-5.5 #) [facility] CenterJqrloitGSXMSJZSBA9443-98-38 18:46:00 Test Item Value Reference Range Interpretation Comments Segs-Bands # (test code = Segs-Bands #) 2.9 1.5-8.1 [facility] CenterVzmzhyfUBFKDNDBXN6444-56-37 18:46:00 Test Item Value Reference Range Interpretation Comments Eosinophils # (test code 0.2 See_Comment [A utomated message] The = Eosinophils #) system whic h generated this result tra nsmitted reference range : <=0.5. The reference r mitra was not used to int erpret this result as normal/abnormal . [facility] CenterXhxabpnHFTBADOHNK8832-83-49 18:46:00 Test Item Value Reference Range Interpretation Comments Basophils # (test code 0.1 See_Comment [Aut omated message] The = Basophils #) system which generated this result tra nsmitted reference range : <=0.2. The reference r mitra was not used to int erpret this result as normal/abnormal . [facility] CenterYpjheszCNOPCFJKMZ8794-66-29 18:46:00 Test Item Value Reference Range Interpretation Comments PT (test code = PT) 11.2 s 12.0-14.7 [facility] CenterItfbereJOCSSVDIER6863-27-61 18:46:00 Test Item Value Reference Range Interpretation Comments INR (test code = INR) 0.82 0.85-1.17 [facility] CenterWvrplfnWUGCHRKGWY1780-73-55 18:46:00 Test Item Value Reference Range Interpretation Comments PTT (test code = PTT) 28.6 s 22.9-35.8 [facility] CenterAcchfmyZXMURFFOQZ7694-03-53 18:46:00 Test Item Value Reference Range Interpretation Comments MPV (test code = MPV) 8.1 7.4-10.4 [facility] CenterIukwfvaJNSKBCPYEV7277-44-50 18:46:00 Test Item Value Reference Range Interpretation Comments Platelet (test code = Platelet) 301 133-450 [facility] CenterCplraayIQCWIYSWGB7002-74-34 18:46:00 Test Item Value Reference Range Interpretation Comments RDW (test code = RDW) 14.5 11.5-14.5 [facility] CenterHhfceqsWOMIVTUERT3604-30-34 18:46:00 Test Item Value Reference Range Interpretation Comments RBC (test code = RBC) 4.84 4.70-6.10 [facility] CenterAnpgclvITBKBGFYXD5102-92-94 18:46:00 Test Item Value Reference Range Interpretation Comments Hgb (test code = Hgb) 14.4 14.0-18.0 [facility] CenterTpirskpYBKJFMIVDH7458-95-16 18:46:00 Test Item Value Reference Range Interpretation Comments WBC (test code = WBC) 5.2 3.7-10.4 [facility] CenterOibuhtrELDDJREDUR6462-71-86 18:46:00 Test Item Value Reference Range Interpretation Comments MCH (test code = MCH) 29.8 pg 27.0-31.0 [facility] CenterJpdifokAVUPKDYTXX4285-45-34 18:46:00 Test Item Value Reference Range Interpretation Comments MCV (test code = MCV) 92.0 80.0-94.0 [facility] DxzifiiZJOJZRPOON5074-78-81 18:46:00 Test Item Value Reference Range Interpretation Comments Hct (test code = Hct) 44.5 42.0-54.0 [facility] RclipzzIIFINQVOGX0608-93-94 18:46:00 Test Item Value Reference Range Interpretation Comments MCHC (test code = MCHC) 32.4 32.0-36.0 [facility] WgbeumyGCJFVJYDOF0235-16-53 18:46:00 Test Item Value Reference Range Interpretation Comments [place]-Hep C Ab (test Negative *NA*(07/22/14 code = [place]-Hep C 1:46 PM) Ab) [facility] AND [id number] 18:46:00 Test Item Value Reference Range Interpretation Comments UA Urobilinogen (test code = UA <=1.0 mg/dL 0.1-1.0 Urobilinogen) [facility] [id number] 18:46:00 Test Item Value Reference Range Interpretation Comments UA Sq Epi (test code = UA Sq Epi) None Seen [facility] AND [id number] 18:46:00 Test Item Value Reference Range Interpretation Comments UA Leuk Est (test Negative (07/22/14 1:46 code = UA Leuk Est) PM) [facility] AND [id number] 18:46:00 Test Item Value Reference Range Interpretation Comments UA Nitrite (test code Negative (07/22/14 1:46 = UA Nitrite) PM) [facility] [id number] 18:46:00 Test Item Value Reference Range Interpretation Comments UA Blood (test code = Negative (07/22/14 1:46 UA Blood) PM) [facility] [id number] 18:46:00 Test Item Value Reference Range Interpretation Comments UA Ketones (test code = UA Negative mg/dL Ketones) [facility] [id number] 18:46:00 Test Item Value Reference Range Interpretation Comments UA Bili (test code = Negative *NA*(07/22/14 UA Bili) 1:46 PM) [facility] [id number] 18:46:00 Test Item Value Reference Range Interpretation Comments UA Bacteria (test code = UA Occasional /HPF Bacteria) [facility] AND [id number] 18:46:00 Test Item Value Reference Range Interpretation Comments UA RBC (test code = no gt See_Comment [Automa elizabeth message] The UA RBC) system which ge nerated this result transmit elizabeth reference range : <=2. The reference range was not used to interpr et this result as margaret l/abnormal. [facility] [id number] 18:46:00 Test Item Value Reference Range Interpretation Comments UA WBC (test code = 1 See_Comment [Automa elizabeth message] The UA WBC) system which ge nerated this result transmit elizabeth reference range : <=5. The reference range was not used to interpr et this result as margaret l/abnormal. [facility] AND [id number] 18:46:00 Test Item Value Reference Range Interpretation Comments UA Glucose (test code = UA Glucose) 30 mg/dL [facility] AND [id number] 18:46:00 Test Item Value Reference Range Interpretation Comments UA Protein (test code = UA Negative mg/dL Protein) [facility] AND [id number] 18:46:00 Test Item Value Reference Range Interpretation Comments UA pH (test code = UA pH) 6.5 5.0-8.0 [facility] AND [id number] 18:46:00 Test Item Value Reference Range Interpretation Comments UA Turbidity (test code = Clear (07/22/14 1:46 UA Turbidity) PM) [facility] AND [id number] 18:46:00 Test Item Value Reference Range Interpretation Comments UA Spec Grav (test code = UA Spec Grav) 1.010 [facility] AND [id number] 18:46:00 Test Item Value Reference Range Interpretation Comments UA Color (test code = Light Yellow UA Color) *NA*(07/22/14 1:46 PM) [facility] [id number] 18:46:00 Test Item Value Reference Range Interpretation Comments Magnesium Lvl (test code = Magnesium 1.8 1.8-2.4 Lvl) [facility]woodJlfzndaUHDJVVYPGCPD6338-63-39 18:46:00 Test Item Value Reference Range Interpretation Comments AGAP (test code = AGAP) 13.2 10.0-20.0 [facility] HospitalBwonbrhWFNXCFKOIMAQ1255-14-70 18:46:00 Test Item Value Reference Range Interpretation Comments B/C Ratio (test code = B/C Ratio) 18 6-25 [facility] HospitalLqnfxmsHIXTZKNNQODT6924-43-80 18:46:00 Test Item Value Reference Range Interpretation Comments A/G Ratio (test code = A/G Ratio) 1.1 0.7-1.6 [facility] HospitalTvwppihLYXYIGTOTFAU3088-56-07 18:46:00 Test Item Value Reference Range Interpretation Comments Globulin (test code = Globulin) 3.3 2.0-4.0 [facility] HospitalMqlyypyMROMHOBGQAXB2395-94-14 18:46:00 Test Item Value Reference Range Interpretation Comments eGFR (test code = eGFR) 99 [facility] HospitalUlnitaiIEIXTELZKPMI7556-06-96 18:46:00 Test Item Value Reference Range Interpretation Comments Calcium Lvl (test code = Calcium Lvl) 9.0 8.5-10.5 [facility] HospitalVzibnhuTQHVGMQEWDHR2781-28-36 18:46:00 Test Item Value Reference Range Interpretation Comments Chloride Lvl (test code = Chloride Lvl) 106 95-109 [facility] HospitalGfciqobTQKLEXNFXUWO2659-78-42 18:46:00 Test Item Value Reference Range Interpretation Comments Creatinine Lvl (test code = Creatinine 0.9 0.5-1.4 Lvl) [facility] HospitalIlyfmwsYMOJULUXOMEL3000-93-65 18:46:00 Test Item Value Reference Range Interpretation Comments Potassium Lvl (test code = Potassium 4.2 3.5-5.1 Lvl) [facility] HospitalYwdxicyPLIJQZDWWIZE9518-77-01 18:46:00 Test Item Value Reference Range Interpretation Comments Sodium Lvl (test code = Sodium Lvl) 139 135-145 [facility] HospitalCguexlyCPFNAUHINMUR6072-90-05 18:46:00 Test Item Value Reference Range Interpretation Comments CO2 (test code = CO2) 24 24-32 [facility] HospitalHjtsrfzIBNYXHAIRYJA2788-75-88 18:46:00 Test Item Value Reference Range Interpretation Comments BUN (test code = BUN) 16 7-22 [facility] HospitalNupgryxOPYHXRUCBHTO3539-11-09 18:46:00 Test Item Value Reference Range Interpretation Comments Glucose Lvl (test code = Glucose Lvl) 141 70-99 [facility] HospitalFeskpunWPCFBGONUNRB8294-43-49 18:46:00 Test Item Value Reference Range Interpretation Comments Albumin Lvl (test code = Albumin Lvl) 3.6 3.5-5.0 [facility] HospitalNrrbwdiJRTMVJOCFURE6885-12-98 18:46:00 Test Item Value Reference Range Interpretation Comments Alk Phos (test code = Alk Phos) 65 39-136 [facility] HospitalRrrzxchZWISYPZMBHBA5920-53-76 18:46:00 Test Item Value Reference Range Interpretation Comments Bili Total (test code = Bili Total) 0.3 0.2-1.3 [facility] HospitalYslybrxWVCOZTUAZNYY6673-58-69 18:46:00 Test Item Value Reference Range Interpretation Comments ALT (test code = ALT) 100 See_Comment [Auto mated message] The system which ge nerated this result transmit elizabeth reference range : <=65. The reference range was not used to interpr et this result as margaret l/abnormal. [facility] HospitalLgvjuayMEDDOLLGEKYJ8694-40-99 18:46:00 Test Item Value Reference Range Interpretation Comments AST (test code = AST) 53 See_Comment [Auto mated message] The system which ge nerated this result transmit elizabeth reference range : <=37. The reference range was not used to interpr et this result as margaret l/abnormal. [facility] HospitalIqqkaqoATWOPMOOAZAV4370-47-47 18:46:00 Test Item Value Reference Range Interpretation Comments Total Protein (test code = Total 6.9 6.4-8.4 Protein) [facility] CenterMkxlisqJSWLYIETJJ3710-90-30 18:46:00 Test Item Value Reference Range Interpretation Comments Eosinophils (test code = 4.2 See_Comment [A utomated message] The Eosinophils) system which ge nerated this result tra nsmitted reference range : <=4.0. The reference r mitra was not used to int erpret this result as normal/abnormal . [facility] CenterHqrugkzKRPRCRMRYJ3029-27-78 18:46:00 Test Item Value Reference Range Interpretation Comments Segs (test code = Segs) 56.4 45.0-75.0 [facility] CenterJmxndbsBHKQJVDMIF2990-62-38 18:46:00 Test Item Value Reference Range Interpretation Comments Monocytes (test code = Monocytes) 10.3 2.0-12.0 [facility] CenterNufjlchBAFJXQBHKI9709-14-89 18:46:00 Test Item Value Reference Range Interpretation Comments Lymphocytes (test code = Lymphocytes) 28.0 20.0-40.0 [facility] CenterTrlzicjRWLBIXFHFJ5944-79-92 18:46:00 Test Item Value Reference Range Interpretation Comments Monocytes # (test code 0.5 See_Comment [Aut omated message] The = Monocytes #) system which generated this result tra nsmitted reference range : <=0.8. The reference r mitra was not used to int erpret this result as normal/abnormal . [facility] CenterQmoezpeALXJWZBKYJ9216-43-06 18:46:00 Test Item Value Reference Range Interpretation Comments Basophils (test code = 1.1 See_Comment [Aut omated message] The Basophils) system which ge nerated this result tra nsmitted reference range : <=1.0. The reference r mitra was not used to int erpret this result as normal/abnormal . [facility] CenterSsqazdvIBMUBTJFOU5665-89-32 18:46:00 Test Item Value Reference Range Interpretation Comments Lymphocytes # (test code = Lymphocytes 1.5 1.0-5.5 #) [facility] CenterNljtupdEGPJOJGFZI0425-48-44 18:46:00 Test Item Value Reference Range Interpretation Comments Segs-Bands # (test code = Segs-Bands #) 2.9 1.5-8.1 [facility] CenterAqsmtlpCSTBKVXYUF7556-56-34 18:46:00 Test Item Value Reference Range Interpretation Comments Eosinophils # (test code 0.2 See_Comment [A utomated message] The = Eosinophils #) system whic h generated this result tra nsmitted reference range : <=0.5. The reference r mitra was not used to int erpret this result as normal/abnormal . [facility] CenterAmfppdgWVRGQOKLCU0541-89-16 18:46:00 Test Item Value Reference Range Interpretation Comments Basophils # (test code 0.1 See_Comment [Aut omated message] The = Basophils #) system which generated this result tra nsmitted reference range : <=0.2. The reference r mitra was not used to int erpret this result as normal/abnormal . [facility] CenterGkzebgbVJGDFQDWEE0686-15-33 18:46:00 Test Item Value Reference Range Interpretation Comments PT (test code = PT) 11.2 s 12.0-14.7 [facility] CenterMnmqjziBNUEDAYFUZ8855-39-77 18:46:00 Test Item Value Reference Range Interpretation Comments INR (test code = INR) 0.82 0.85-1.17 [facility] CenterFsiyzcoDFLEJFPTRP4665-11-12 18:46:00 Test Item Value Reference Range Interpretation Comments PTT (test code = PTT) 28.6 s 22.9-35.8 [facility] CenterHnrvvhjILSCRYFHTK9579-22-58 18:46:00 Test Item Value Reference Range Interpretation Comments MPV (test code = MPV) 8.1 7.4-10.4 [facility] CenterBqgkftmRPHCQGDETJ9162-71-84 18:46:00 Test Item Value Reference Range Interpretation Comments Platelet (test code = Platelet) 301 133-450 [facility] CenterUnbehrtJCBQOQZPVL2544-50-98 18:46:00 Test Item Value Reference Range Interpretation Comments RDW (test code = RDW) 14.5 11.5-14.5 [facility] CenterGjcbpjeXTENFSZVAU3510-24-29 18:46:00 Test Item Value Reference Range Interpretation Comments RBC (test code = RBC) 4.84 4.70-6.10 [facility] CenterBsjaldgVEPROSUIBJ1226-29-28 18:46:00 Test Item Value Reference Range Interpretation Comments Hgb (test code = Hgb) 14.4 14.0-18.0 [facility] CenterBswgbmnTBMNWWHVGZ3308-79-30 18:46:00 Test Item Value Reference Range Interpretation Comments WBC (test code = WBC) 5.2 3.7-10.4 [facility] CenterYvvxocoEPTQYXCDFZ5088-31-91 18:46:00 Test Item Value Reference Range Interpretation Comments MCH (test code = MCH) 29.8 pg 27.0-31.0 [facility] CenterFgalrqaBLHICTALLP1070-45-35 18:46:00 Test Item Value Reference Range Interpretation Comments MCV (test code = MCV) 92.0 80.0-94.0 [facility] CenterNhmcwijHNCVKCRQIQ8741-44-21 18:46:00 Test Item Value Reference Range Interpretation Comments Hct (test code = Hct) 44.5 42.0-54.0 [facility] CenterBjwdahbWMJQIJHMNI6377-71-20 18:46:00 Test Item Value Reference Range Interpretation Comments MCHC (test code = MCHC) 32.4 32.0-36.0 [facility]GweqacuNPGVRTJAJS1482-51-93 18:46:00 Test Item Value Reference Range Interpretation Comments [place]-Hep C Ab (test Negative *NA*(07/22/14 code = [place]-Hep C 1:46 PM) Ab) [facility] AND [id number] 18:46:00 Test Item Value Reference Range Interpretation Comments UA Urobilinogen (test code = UA <=1.0 mg/dL 0.1-1.0 Urobilinogen) [facility] AND [id number] 18:46:00 Test Item Value Reference Range Interpretation Comments UA Sq Epi (test code = UA Sq Epi) None Seen [facility] AND [id number] 18:46:00 Test Item Value Reference Range Interpretation Comments UA Leuk Est (test Negative (07/22/14 1:46 code = UA Leuk Est) PM) [facility] AND [id number] 18:46:00 Test Item Value Reference Range Interpretation Comments UA Nitrite (test code Negative (07/22/14 1:46 = UA Nitrite) PM) [facility] AND [id number] 18:46:00 Test Item Value Reference Range Interpretation Comments UA Blood (test code = Negative (07/22/14 1:46 UA Blood) PM) [facility] AND [id number] 18:46:00 Test Item Value Reference Range Interpretation Comments UA Ketones (test code = UA Negative mg/dL Ketones) [facility] AND [id number] 18:46:00 Test Item Value Reference Range Interpretation Comments UA Bili (test code = Negative *NA*(07/22/14 UA Bili) 1:46 PM) [facility] AND [id number] 18:46:00 Test Item Value Reference Range Interpretation Comments UA Bacteria (test code = UA Occasional /HPF Bacteria) [facility] AND [id number] 18:46:00 Test Item Value Reference Range Interpretation Comments UA RBC (test code = no gt See_Comment [Automa elizabeth message] The UA RBC) system which ge nerated this result transmit elizabeth reference range : <=2. The reference range was not used to interpr et this result as margaret l/abnormal. [facility] AND [id number] 18:46:00 Test Item Value Reference Range Interpretation Comments UA WBC (test code = 1 See_Comment [Automa elizabeth message] The UA WBC) system which ge nerated this result transmit elizabeth reference range : <=5. The reference range was not used to interpr et this result as margaret l/abnormal. [facility] AND [id number] 18:46:00 Test Item Value Reference Range Interpretation Comments UA Glucose (test code = UA Glucose) 30 mg/dL [facility] AND [id number] 18:46:00 Test Item Value Reference Range Interpretation Comments UA Protein (test code = UA Negative mg/dL Protein) [facility] AND [id number] 18:46:00 Test Item Value Reference Range Interpretation Comments UA pH (test code = UA pH) 6.5 5.0-8.0 [facility] AND [id number] 18:46:00 Test Item Value Reference Range Interpretation Comments UA Turbidity (test code = Clear (07/22/14 1:46 UA Turbidity) PM) [facility] AND [id number] 18:46:00 Test Item Value Reference Range Interpretation Comments UA Spec Grav (test code = UA Spec Grav) 1.010 [facility] AND [id number] 18:46:00 Test Item Value Reference Range Interpretation Comments UA Color (test code = Light Yellow UA Color) *NA*(07/22/14 1:46 PM) [facility] [id number] 18:46:00 Test Item Value Reference Range Interpretation Comments Magnesium Lvl (test code = Magnesium 1.8 1.8-2.4 Lvl) [facility] HospitalCjfemjlEPNAMMRAMHJU3679-45-31 18:46:00 Test Item Value Reference Range Interpretation Comments AGAP (test code = AGAP) 13.2 10.0-20.0 [facility] HospitalCeoqktbWOSKHLITCCOK2847-87-16 18:46:00 Test Item Value Reference Range Interpretation Comments B/C Ratio (test code = B/C Ratio) 18 6-25 [facility] HospitalYiylapoDMICFAZSICLG7379-04-10 18:46:00 Test Item Value Reference Range Interpretation Comments A/G Ratio (test code = A/G Ratio) 1.1 0.7-1.6 [facility] HospitalVczqhjiVHSQQMQTUSIJ0879-39-84 18:46:00 Test Item Value Reference Range Interpretation Comments Globulin (test code = Globulin) 3.3 2.0-4.0 [facility] HospitalXcoyctyJUAGHYDODUBI9001-65-15 18:46:00 Test Item Value Reference Range Interpretation Comments eGFR (test code = eGFR) 99 [facility] HospitalFpllwarSEYKYZXEYQWE4798-73-96 18:46:00 Test Item Value Reference Range Interpretation Comments Calcium Lvl (test code = Calcium Lvl) 9.0 8.5-10.5 [facility] HospitalBywbmyfDQALFGBZGVSY6716-70-78 18:46:00 Test Item Value Reference Range Interpretation Comments Chloride Lvl (test code = Chloride Lvl) 106 95-109 [facility] HospitalHyuzlyaIQJLNRZXHXQC7490-29-26 18:46:00 Test Item Value Reference Range Interpretation Comments Creatinine Lvl (test code = Creatinine 0.9 0.5-1.4 Lvl) [facility] HospitalEmuqzcwGIWNEZCRONKJ8599-52-16 18:46:00 Test Item Value Reference Range Interpretation Comments Potassium Lvl (test code = Potassium 4.2 3.5-5.1 Lvl) [facility] HospitalWqmmyltTAVHRMLXWIPD0451-21-75 18:46:00 Test Item Value Reference Range Interpretation Comments Sodium Lvl (test code = Sodium Lvl) 139 135-145 [facility] HospitalVjajywnBMVRQCEKABVI7743-12-20 18:46:00 Test Item Value Reference Range Interpretation Comments CO2 (test code = CO2) 24 24-32 [facility] HospitalLbwodmhNKEALVAWKGMH1572-90-18 18:46:00 Test Item Value Reference Range Interpretation Comments BUN (test code = BUN) 16 7-22 [facility] HospitalNcwwcuoIQEOIPBCNTUK3865-51-02 18:46:00 Test Item Value Reference Range Interpretation Comments Glucose Lvl (test code = Glucose Lvl) 141 70-99 [facility] HospitalRwuuhsgECWBUSSCNHYD7164-27-84 18:46:00 Test Item Value Reference Range Interpretation Comments Albumin Lvl (test code = Albumin Lvl) 3.6 3.5-5.0 [facility] HospitalUtfmrkrZAABNJDJPXUD8635-51-91 18:46:00 Test Item Value Reference Range Interpretation Comments Alk Phos (test code = Alk Phos) 65 39-136 [facility] HospitalQrkrvsjGPVRTUCZVLCC4749-16-44 18:46:00 Test Item Value Reference Range Interpretation Comments Bili Total (test code = Bili Total) 0.3 0.2-1.3 [facility] HospitalWqrdetaHMZFVPSDHRAS4696-46-03 18:46:00 Test Item Value Reference Range Interpretation Comments ALT (test code = ALT) 100 See_Comment [Auto mated message] The system which ge nerated this result transmit elizabeth reference range : <=65. The reference range was not used to interpr et this result as margaret l/abnormal. [facility] HospitalYzswaimRMTIPGIFILTT2692-18-20 18:46:00 Test Item Value Reference Range Interpretation Comments AST (test code = AST) 53 See_Comment [Auto mated message] The system which ge nerated this result transmit elizabeth reference range : <=37. The reference range was not used to interpr et this result as margaret l/abnormal. [facility] HospitalVfzsvpkCQDSCHYQRBJA1285-20-27 18:46:00 Test Item Value Reference Range Interpretation Comments Total Protein (test code = Total 6.9 6.4-8.4 Protein) [facility] CenterBweaecoCYFTVRUUCH5393-98-91 18:46:00 Test Item Value Reference Range Interpretation Comments Eosinophils (test code = 4.2 See_Comment [A utomated message] The Eosinophils) system which ge nerated this result tra nsmitted reference range : <=4.0. The reference r mitra was not used to int erpret this result as normal/abnormal . [facility] CenterZxcwtvaFEPSPWVACX2745-74-05 18:46:00 Test Item Value Reference Range Interpretation Comments Segs (test code = Segs) 56.4 45.0-75.0 [facility] CenterAzdxlcbHIULNZTGNP9703-61-41 18:46:00 Test Item Value Reference Range Interpretation Comments Monocytes (test code = Monocytes) 10.3 2.0-12.0 [facility] CenterQmqzmopLTGPBXLFPI0249-78-42 18:46:00 Test Item Value Reference Range Interpretation Comments Lymphocytes (test code = Lymphocytes) 28.0 20.0-40.0 [facility] CenterEdilsjrNJGSSVGVPE1710-60-20 18:46:00 Test Item Value Reference Range Interpretation Comments Monocytes # (test code 0.5 See_Comment [Aut omated message] The = Monocytes #) system which generated this result tra nsmitted reference range : <=0.8. The reference r mitra was not used to int erpret this result as normal/abnormal . [facility] CenterBunacdbESOADXBWLI2303-10-85 18:46:00 Test Item Value Reference Range Interpretation Comments Basophils (test code = 1.1 See_Comment [Aut omated message] The Basophils) system which ge nerated this result tra nsmitted reference range : <=1.0. The reference r mitra was not used to int erpret this result as normal/abnormal . [facility] CenterUdxylpoYLPBQMJSOP7463-35-31 18:46:00 Test Item Value Reference Range Interpretation Comments Lymphocytes # (test code = Lymphocytes 1.5 1.0-5.5 #) [facility] CenterWjymhwjPLIUKRSZPK5007-47-68 18:46:00 Test Item Value Reference Range Interpretation Comments Segs-Bands # (test code = Segs-Bands #) 2.9 1.5-8.1 [facility] CenterGcxyrfjVRTKQUZKTB5029-20-31 18:46:00 Test Item Value Reference Range Interpretation Comments Eosinophils # (test code 0.2 See_Comment [A utomated message] The = Eosinophils #) system whic h generated this result tra nsmitted reference range : <=0.5. The reference r mitra was not used to int erpret this result as normal/abnormal . [facility] CenterIwticvoTQDAFKSKTF8888-95-61 18:46:00 Test Item Value Reference Range Interpretation Comments Basophils # (test code 0.1 See_Comment [Aut omated message] The = Basophils #) system which generated this result tra nsmitted reference range : <=0.2. The reference r mitra was not used to int erpret this result as normal/abnormal . [facility] CenterUaclujmSJBLUQJLGO0148-21-17 18:46:00 Test Item Value Reference Range Interpretation Comments PT (test code = PT) 11.2 s 12.0-14.7 [facility] CenterRvdytvqIPXLQLVYII8904-43-19 18:46:00 Test Item Value Reference Range Interpretation Comments INR (test code = INR) 0.82 0.85-1.17 [facility] CenterJavaeqmYCYSHJLIWY7253-23-11 18:46:00 Test Item Value Reference Range Interpretation Comments PTT (test code = PTT) 28.6 s 22.9-35.8 [facility] CenterIcmhpntYCRUJWBAXD5272-55-63 18:46:00 Test Item Value Reference Range Interpretation Comments MPV (test code = MPV) 8.1 7.4-10.4 [facility] CenterOsxksvzUCGSJTXTJH9918-60-73 18:46:00 Test Item Value Reference Range Interpretation Comments Platelet (test code = Platelet) 301 133-450 [facility]LslaolyVHTHEULTLW9173-96-00 18:46:00 Test Item Value Reference Range Interpretation Comments RDW (test code = RDW) 14.5 11.5-14.5 [facility] HospitalZlmntgbWXFBGIJMOK9339-17-06 18:46:00 Test Item Value Reference Range Interpretation Comments RBC (test code = RBC) 4.84 4.70-6.10 [facility] CenterNnpebcxJJSSJZLUYY5124-96-55 18:46:00 Test Item Value Reference Range Interpretation Comments Hgb (test code = Hgb) 14.4 14.0-18.0 [facility] CenterMvmotjgPUNMRHOGFY2024-66-88 18:46:00 Test Item Value Reference Range Interpretation Comments WBC (test code = WBC) 5.2 3.7-10.4 [facility] CenterLdptinyYIYWHJMZYY4908-26-18 18:46:00 Test Item Value Reference Range Interpretation Comments MCH (test code = MCH) 29.8 pg 27.0-31.0 [facility] CenterHmlzjwrNGXEJFCHRF7265-68-45 18:46:00 Test Item Value Reference Range Interpretation Comments MCV (test code = MCV) 92.0 80.0-94.0 [facility] HospitalHfcwqcmDWFTOFLXQQ5727-92-99 18:46:00 Test Item Value Reference Range Interpretation Comments Hct (test code = Hct) 44.5 42.0-54.0 [facility] HospitalYbtmloyPBDGJGNUWK9301-12-06 18:46:00 Test Item Value Reference Range Interpretation Comments MCHC (test code = MCHC) 32.4 32.0-36.0 [facility]klxcyuMZCCZEPWYD3265-80-51 18:46:00 Test Item Value Reference Range Interpretation Comments [place]-Hep C Ab (test Negative *NA*(07/22/14 code = [place]-Hep C 1:46 PM) Ab) [facility] AND [id number] 18:46:00 Test Item Value Reference Range Interpretation Comments UA Urobilinogen (test code = UA <=1.0 mg/dL 0.1-1.0 Urobilinogen) [facility] AND [id number] 18:46:00 Test Item Value Reference Range Interpretation Comments UA Sq Epi (test code = UA Sq Epi) None Seen [facility] AND [id number] 18:46:00 Test Item Value Reference Range Interpretation Comments UA Leuk Est (test Negative (07/22/14 1:46 code = UA Leuk Est) PM) [facility] AND [id number] 18:46:00 Test Item Value Reference Range Interpretation Comments UA Nitrite (test code Negative (07/22/14 1:46 = UA Nitrite) PM) [facility] AND [id number] 18:46:00 Test Item Value Reference Range Interpretation Comments UA Blood (test code = Negative (07/22/14 1:46 UA Blood) PM) [facility] AND [id number] 18:46:00 Test Item Value Reference Range Interpretation Comments UA Ketones (test code = UA Negative mg/dL Ketones) [facility] AND [id number] 18:46:00 Test Item Value Reference Range Interpretation Comments UA Bili (test code = Negative *NA*(07/22/14 UA Bili) 1:46 PM) [facility] AND [id number] 18:46:00 Test Item Value Reference Range Interpretation Comments UA Bacteria (test code = UA Occasional /HPF Bacteria) [facility] AND [id number] 18:46:00 Test Item Value Reference Range Interpretation Comments UA RBC (test code = no gt See_Comment [Automa elizabeth message] The UA RBC) system which ge nerated this result transmit elizabeth reference range : <=2. The reference range was not used to interpr et this result as margaret l/abnormal. [facility] AND [id number] 18:46:00 Test Item Value Reference Range Interpretation Comments UA WBC (test code = 1 See_Comment [Automa elizabeth message] The UA WBC) system which ge nerated this result transmit elizabeth reference range : <=5. The reference range was not used to interpr et this result as margaret l/abnormal. [facility] AND [id number] 18:46:00 Test Item Value Reference Range Interpretation Comments UA Glucose (test code = UA Glucose) 30 mg/dL [facility] AND [id number] 18:46:00 Test Item Value Reference Range Interpretation Comments UA Protein (test code = UA Negative mg/dL Protein) [facility] AND [id number] 18:46:00 Test Item Value Reference Range Interpretation Comments UA pH (test code = UA pH) 6.5 5.0-8.0 [facility] AND [id number] 18:46:00 Test Item Value Reference Range Interpretation Comments UA Turbidity (test code = Clear (07/22/14 1:46 UA Turbidity) PM) [facility] AND [id number] 18:46:00 Test Item Value Reference Range Interpretation Comments UA Spec Grav (test code = UA Spec Grav) 1.010 [facility] AND [id number] 18:46:00 Test Item Value Reference Range Interpretation Comments UA Color (test code = Light Yellow UA Color) *NA*(07/22/14 1:46 PM) [facility] IOQTB7626-22-49 18:46:00 Test Item Value Reference Range Interpretation Comments Magnesium Lvl (test code = Magnesium 1.8 1.8-2.4 Lvl) [facility] HospitalRxpotmcSXEDXGEVCJOF2421-51-22 18:46:00 Test Item Value Reference Range Interpretation Comments AGAP (test code = AGAP) 13.2 10.0-20.0 [facility] HospitalZfcsvmpKDNPLGNHIBSU1244-26-86 18:46:00 Test Item Value Reference Range Interpretation Comments B/C Ratio (test code = B/C Ratio) 18 6-25 [facility] HospitalWlqqdhvUADDEZLQIDKX9921-86-31 18:46:00 Test Item Value Reference Range Interpretation Comments A/G Ratio (test code = A/G Ratio) 1.1 0.7-1.6 [facility] HospitalTtobblvQTARZSTFPKPK1277-90-95 18:46:00 Test Item Value Reference Range Interpretation Comments Globulin (test code = Globulin) 3.3 2.0-4.0 [facility]UqkuczlMYSMNHOHVQMQ7842-84-37 18:46:00 Test Item Value Reference Range Interpretation Comments eGFR (test code = eGFR) 99 [facility] HospitalSpmiiccAAAXBUYBDRTD7799-74-26 18:46:00 Test Item Value Reference Range Interpretation Comments Calcium Lvl (test code = Calcium Lvl) 9.0 8.5-10.5 [facility] HospitalBrketwzAUVXEKDNIMBN7471-88-33 18:46:00 Test Item Value Reference Range Interpretation Comments Chloride Lvl (test code = Chloride Lvl) 106 95-109 [facility] HospitalEnmxcklSABPDZGXFMQM2947-81-63 18:46:00 Test Item Value Reference Range Interpretation Comments Creatinine Lvl (test code = Creatinine 0.9 0.5-1.4 Lvl) [facility] HospitalPfxnmyaTTOGVCBRKMGK9406-39-53 18:46:00 Test Item Value Reference Range Interpretation Comments Potassium Lvl (test code = Potassium 4.2 3.5-5.1 Lvl) [facility] HospitalMshzmpzEZADQGJBLHYK2580-67-91 18:46:00 Test Item Value Reference Range Interpretation Comments Sodium Lvl (test code = Sodium Lvl) 139 135-145 [facility] HospitalTskcbuzBUPGXTRCKNBG0913-75-05 18:46:00 Test Item Value Reference Range Interpretation Comments CO2 (test code = CO2) 24 24-32 [facility] HospitalXrtanlgNADOUMUZYTRO9171-92-50 18:46:00 Test Item Value Reference Range Interpretation Comments BUN (test code = BUN) 16 7-22 [facility] HospitalAgeytduBVYIPHRTMQOC6783-65-99 18:46:00 Test Item Value Reference Range Interpretation Comments Glucose Lvl (test code = Glucose Lvl) 141 70-99 [facility] HospitalLdwcfndGXZGZEGHQRBD7533-87-35 18:46:00 Test Item Value Reference Range Interpretation Comments Albumin Lvl (test code = Albumin Lvl) 3.6 3.5-5.0 [facility] HospitalOvlhmdsHEERKTQJMZVO5174-34-61 18:46:00 Test Item Value Reference Range Interpretation Comments Alk Phos (test code = Alk Phos) 65 39-136 [facility] HospitalWtumdsxVHGDEMFUTTGP5609-23-51 18:46:00 Test Item Value Reference Range Interpretation Comments Bili Total (test code = Bili Total) 0.3 0.2-1.3 [facility] HospitalZithqarVAWXSAIIAXTQ5774-79-09 18:46:00 Test Item Value Reference Range Interpretation Comments ALT (test code = ALT) 100 See_Comment [Auto mated message] The system which ge nerated this result transmit elizabeth reference range : <=65. The reference range was not used to interpr et this result as margaret l/abnormal. [facility] HospitalStspxplAMQXUPAUAHUH6707-15-94 18:46:00 Test Item Value Reference Range Interpretation Comments AST (test code = AST) 53 See_Comment [Auto mated message] The system which ge nerated this result transmit elizabeth reference range : <=37. The reference range was not used to interpr et this result as margaret l/abnormal. [place] 090015-06-09 18:46:00 Test Item Value Reference Range Interpretation Comments Total Protein (test code = Total 6.9 6.4-8.4 Protein) [facility] CenterMecfizsHIDBNLNZYO7634-60-67 18:46:00 Test Item Value Reference Range Interpretation Comments Eosinophils (test code = 4.2 See_Comment [A utomated message] The Eosinophils) system which ge nerated this result tra nsmitted reference range : <=4.0. The reference r mitra was not used to int erpret this result as normal/abnormal . [facility] CenterYbpyrudOQBCTNGXMZ9894-76-63 18:46:00 Test Item Value Reference Range Interpretation Comments Segs (test code = Segs) 56.4 45.0-75.0 [facility] CenterKvomzgxRWCPGBVLSO6015-83-30 18:46:00 Test Item Value Reference Range Interpretation Comments Monocytes (test code = Monocytes) 10.3 2.0-12.0 [facility] CenterGplnelvMTDTTQYBFJ4371-29-89 18:46:00 Test Item Value Reference Range Interpretation Comments Lymphocytes (test code = Lymphocytes) 28.0 20.0-40.0 [facility] CenterDuubpsfOLEIRFORDL6280-54-54 18:46:00 Test Item Value Reference Range Interpretation Comments Monocytes # (test code 0.5 See_Comment [Aut omated message] The = Monocytes #) system which generated this result tra nsmitted reference range : <=0.8. The reference r mitra was not used to int erpret this result as normal/abnormal . [facility] CenterNlzorpbBDWXYNCHAV4894-75-77 18:46:00 Test Item Value Reference Range Interpretation Comments Basophils (test code = 1.1 See_Comment [Aut omated message] The Basophils) system which ge nerated this result tra nsmitted reference range : <=1.0. The reference r mitra was not used to int erpret this result as normal/abnormal . [facility] CenterYdspjfgTDQXYAFOLZ8241-67-59 18:46:00 Test Item Value Reference Range Interpretation Comments Lymphocytes # (test code = Lymphocytes 1.5 1.0-5.5 #) [facility] CenterIirzhtdFRWYAYTMVM2638-49-19 18:46:00 Test Item Value Reference Range Interpretation Comments Segs-Bands # (test code = Segs-Bands #) 2.9 1.5-8.1 [facility] CenterHuwpmrvSYAJUJBFIV5563-39-80 18:46:00 Test Item Value Reference Range Interpretation Comments Eosinophils # (test code 0.2 See_Comment [A utomated message] The = Eosinophils #) system whic h generated this result tra nsmitted reference range : <=0.5. The reference r mitra was not used to int erpret this result as normal/abnormal . [facility] CenterChkeukzDCIYXOFDZS4923-65-34 18:46:00 Test Item Value Reference Range Interpretation Comments Basophils # (test code 0.1 See_Comment [Aut omated message] The = Basophils #) system which generated this result tra nsmitted reference range : <=0.2. The reference r mitra was not used to int erpret this result as normal/abnormal . [facility] CenterGdktpaxIAYDWFNDPX6467-55-17 18:46:00 Test Item Value Reference Range Interpretation Comments PT (test code = PT) 11.2 s 12.0-14.7 [facility] CenterZyfegmfCYXWERQUKS5473-58-81 18:46:00 Test Item Value Reference Range Interpretation Comments INR (test code = INR) 0.82 0.85-1.17 [facility] CenterUagnxlhKKRHEMFWQD3881-34-57 18:46:00 Test Item Value Reference Range Interpretation Comments PTT (test code = PTT) 28.6 s 22.9-35.8 [facility] CenterZigxhnaXAEQGRVDBX3069-06-04 18:46:00 Test Item Value Reference Range Interpretation Comments MPV (test code = MPV) 8.1 7.4-10.4 [facility] CenterEntnmjsUCREXZRYFQ3759-11-43 18:46:00 Test Item Value Reference Range Interpretation Comments Platelet (test code = Platelet) 301 133-450 [facility] CenterTnvkzakVXMMIFUSMZ8898-80-37 18:46:00 Test Item Value Reference Range Interpretation Comments RDW (test code = RDW) 14.5 11.5-14.5 [facility] CenterHdbcfnfXAJLZHQTNV4731-41-17 18:46:00 Test Item Value Reference Range Interpretation Comments RBC (test code = RBC) 4.84 4.70-6.10 [facility] CenterFijsenrMWASXPSIRT5896-80-77 18:46:00 Test Item Value Reference Range Interpretation Comments Hgb (test code = Hgb) 14.4 14.0-18.0 [facility] CenterMdpmsfzTPLNDVAQNJ1482-11-85 18:46:00 Test Item Value Reference Range Interpretation Comments WBC (test code = WBC) 5.2 3.7-10.4 [facility] HqvgoprUSOIIEQCKQ3969-79-48 18:46:00 Test Item Value Reference Range Interpretation Comments MCH (test code = MCH) 29.8 pg 27.0-31.0 [facility] YtvcupmADAQYIFFMP6831-49-67 18:46:00 Test Item Value Reference Range Interpretation Comments MCV (test code = MCV) 92.0 80.0-94.0 [facility] HargnutQLHPBPMGUH9561-84-44 18:46:00 Test Item Value Reference Range Interpretation Comments Hct (test code = Hct) 44.5 42.0-54.0 [facility] WglxqnsVMIHPHJYTB4372-11-82 18:46:00 Test Item Value Reference Range Interpretation Comments MCHC (test code = MCHC) 32.4 32.0-36.0 [facility]WhqtcqrUWTLZBNUKN1237-54-04 18:46:00 Test Item Value Reference Range Interpretation Comments [place]-Hep C Ab (test Negative *NA*(07/22/14 code = [place]-Hep C 1:46 PM) Ab) [facility] [id number] 18:46:00 Test Item Value Reference Range Interpretation Comments UA Urobilinogen (test code = UA <=1.0 mg/dL 0.1-1.0 Urobilinogen) [facility]CHE[facility] [id number] 18:46:00 Test Item Value Reference Range Interpretation Comments Magnesium Lvl (test code = Magnesium 1.8 1.8-2.4 Lvl) [facility] [id number] 18:46:00 Test Item Value Reference Range Interpretation Comments UA Sq Epi (test code = UA Sq Epi) None Seen [facility] RqwdyzoDXPIUIGZBVMB0845-35-12 18:46:00 Test Item Value Reference Range Interpretation Comments AGAP (test code = AGAP) 13.2 10.0-20.0 [facility] [id number] 18:46:00 Test Item Value Reference Range Interpretation Comments UA Leuk Est (test Negative (07/22/14 1:46 code = UA Leuk Est) PM) [facility] ZsvvxiuIOKTZMZGWDXW6274-96-72 18:46:00 Test Item Value Reference Range Interpretation Comments B/C Ratio (test code = B/C Ratio) 18 6-25 [facility] AND [id number] 18:46:00 Test Item Value Reference Range Interpretation Comments UA Nitrite (test code Negative (07/22/14 1:46 = UA Nitrite) PM) [facility] HospitalAgxkdvaTZHBRBQTSBZY1798-99-97 18:46:00 Test Item Value Reference Range Interpretation Comments A/G Ratio (test code = A/G Ratio) 1.1 0.7-1.6 [facility] AND [id number] 18:46:00 Test Item Value Reference Range Interpretation Comments UA Blood (test code = Negative (07/22/14 1:46 UA Blood) PM) [facility] HospitalMuvlzxwKUFDWSBDWIIB7196-91-89 18:46:00 Test Item Value Reference Range Interpretation Comments Globulin (test code = Globulin) 3.3 2.0-4.0 [facility] AND [id number] 18:46:00 Test Item Value Reference Range Interpretation Comments UA Ketones (test code = UA Negative mg/dL Ketones) [facility] HospitalDlojqkgNPCXLEJZUHTJ1763-02-59 18:46:00 Test Item Value Reference Range Interpretation Comments eGFR (test code = eGFR) 99 [facility] AND [id number] 18:46:00 Test Item Value Reference Range Interpretation Comments UA Bili (test code = Negative *NA*(07/22/14 UA Bili) 1:46 PM) [facility] HospitalRlbeyqaGUSVMKQGCKEC0720-28-10 18:46:00 Test Item Value Reference Range Interpretation Comments Calcium Lvl (test code = Calcium Lvl) 9.0 8.5-10.5 [facility] AND [id number] 18:46:00 Test Item Value Reference Range Interpretation Comments UA Bacteria (test code = UA Occasional /HPF Bacteria) [facility] HospitalIviierjPJFBTWLMTNFC7169-90-76 18:46:00 Test Item Value Reference Range Interpretation Comments Chloride Lvl (test code = Chloride Lvl) 106 95-109 [facility] AND [id number] 18:46:00 Test Item Value Reference Range Interpretation Comments UA RBC (test code = no gt See_Comment [Automa elizabeth message] The UA RBC) system which ge nerated this result transmit elizabeth reference range : <=2. The reference range was not used to interpr et this result as margaret l/abnormal. [facility] HospitalRvjqzabCFVRXWCPEVJW9441-02-71 18:46:00 Test Item Value Reference Range Interpretation Comments Creatinine Lvl (test code = Creatinine 0.9 0.5-1.4 Lvl) [facility] AND [id number] 18:46:00 Test Item Value Reference Range Interpretation Comments UA WBC (test code = 1 See_Comment [Automa elizabeth message] The UA WBC) system which ge nerated this result transmit elizabeth reference range : <=5. The reference range was not used to interpr et this result as margaret l/abnormal. [facility] HospitalKqiblvwXNYAVOGKJXNR0829-53-42 18:46:00 Test Item Value Reference Range Interpretation Comments Potassium Lvl (test code = Potassium 4.2 3.5-5.1 Lvl) [facility]2015-06-09 18:46:00 Test Item Value Reference Range Interpretation Comments UA Glucose (test code = UA Glucose) 30 mg/dL [facility] HospitalVcodlqkLSKOXKFGSDLJ2068-26-23 18:46:00 Test Item Value Reference Range Interpretation Comments Sodium Lvl (test code = Sodium Lvl) 139 135-145 [facility] AND [id number] 18:46:00 Test Item Value Reference Range Interpretation Comments UA Protein (test code = UA Negative mg/dL Protein) [facility] HospitalIduztyjGXUQYEUPEXMN5005-47-69 18:46:00 Test Item Value Reference Range Interpretation Comments CO2 (test code = CO2) 24 24-32 [facility]2015-06-09 18:46:00 Test Item Value Reference Range Interpretation Comments UA pH (test code = UA pH) 6.5 5.0-8.0 [facility] HospitalKgpvufjIPIJTEGSUEKC4486-64-11 18:46:00 Test Item Value Reference Range Interpretation Comments BUN (test code = BUN) 16 7-22 [facility]2015-06-09 18:46:00 Test Item Value Reference Range Interpretation Comments UA Turbidity (test code = Clear (07/22/14 1:46 UA Turbidity) PM) [facility] HospitalNrwhpamDHZYKIACCNED6034-75-49 18:46:00 Test Item Value Reference Range Interpretation Comments Glucose Lvl (test code = Glucose Lvl) 141 70-99 [facility]2015-06-09 18:46:00 Test Item Value Reference Range Interpretation Comments UA Spec Grav (test code = UA Spec Grav) 1.010 [facility]ItjdazlZYBHGUSNGRFK9432-01-20 18:46:00 Test Item Value Reference Range Interpretation Comments Albumin Lvl (test code = Albumin Lvl) 3.6 3.5-5.0 [facility] TitiURINE AND [id number] 18:46:00 Test Item Value Reference Range Interpretation Comments UA Color (test code = Light Yellow UA Color) *NA*(07/22/14 1:46 PM) [facility] HospitalZtcxwjvCEWONCEEIYJZ7039-39-97 18:46:00 Test Item Value Reference Range Interpretation Comments Alk Phos (test code = Alk Phos) 65 39-136 [facility]CHE[facility] AVECL7036-07-68 18:46:00 Test Item Value Reference Range Interpretation Comments Magnesium Lvl (test code = Magnesium 1.8 1.8-2.4 Lvl) [facility] HospitalSccyojrLHOWPMRGXOLY8729-97-49 18:46:00 Test Item Value Reference Range Interpretation Comments Bili Total (test code = Bili Total) 0.3 0.2-1.3 [facility] HospitalRjhhehoGRRETGSBTFAM2215-04-08 18:46:00 Test Item Value Reference Range Interpretation Comments AGAP (test code = AGAP) 13.2 10.0-20.0 [facility] HospitalYumunllIIHRWWSCBXYL3020-09-79 18:46:00 Test Item Value Reference Range Interpretation Comments ALT (test code = ALT) 100 See_Comment [Auto mated message] The system which ge nerated this result transmit elizabeth reference range : <=65. The reference range was not used to interpr et this result as margaret l/abnormal. [facility]klhEBZCERGXIYDO3484-57-36 18:46:00 Test Item Value Reference Range Interpretation Comments B/C Ratio (test code = B/C Ratio) 18 6-25 [facility] HospitalDwnfitiMBOIJFJXYBQI8869-46-21 18:46:00 Test Item Value Reference Range Interpretation Comments AST (test code = AST) 53 See_Comment [Auto mated message] The system which ge nerated this result transmit elizabeth reference range : <=37. The reference range was not used to interpr et this result as margaret l/abnormal. [facility]woodKcqqjwsZLAMZXWHATXD4653-75-57 18:46:00 Test Item Value Reference Range Interpretation Comments A/G Ratio (test code = A/G Ratio) 1.1 0.7-1.6 [facility] HospitalPublnczWZLQFNJEGQXF9197-29-70 18:46:00 Test Item Value Reference Range Interpretation Comments Total Protein (test code = Total 6.9 6.4-8.4 Protein) [facility] HospitalUbjkubsECSRPTUFRUOA1193-68-44 18:46:00 Test Item Value Reference Range Interpretation Comments Globulin (test code = Globulin) 3.3 2.0-4.0 [facility]JfnnhoyUDCXQPYPFO6746-00-69 18:46:00 Test Item Value Reference Range Interpretation Comments Eosinophils (test code = 4.2 See_Comment [A utomated message] The Eosinophils) system which ge nerated this result tra nsmitted reference range : <=4.0. The reference r mitra was not used to int erpret this result as normal/abnormal . [facility] HospitalJvgrayfGMJYWESZTSJU5516-35-86 18:46:00 Test Item Value Reference Range Interpretation Comments eGFR (test code = eGFR) 99 [facility] CenterMiarljeOGKGUGLSNW9470-54-26 18:46:00 Test Item Value Reference Range Interpretation Comments Segs (test code = Segs) 56.4 45.0-75.0 [facility] HospitalUyfwealQCCQPTNPLZWA9469-59-03 18:46:00 Test Item Value Reference Range Interpretation Comments Calcium Lvl (test code = Calcium Lvl) 9.0 8.5-10.5 [facility] CenterRkizotyWNFJFGPKTX8733-22-29 18:46:00 Test Item Value Reference Range Interpretation Comments Monocytes (test code = Monocytes) 10.3 2.0-12.0 [facility] HospitalKpayrprRDTNHMZYZOKR8795-85-39 18:46:00 Test Item Value Reference Range Interpretation Comments Chloride Lvl (test code = Chloride Lvl) 106 95-109 [facility] CenterCynchkcCBVMADTKRT0509-20-46 18:46:00 Test Item Value Reference Range Interpretation Comments Lymphocytes (test code = Lymphocytes) 28.0 20.0-40.0 [facility] HospitalQqdmviiFDMBUSDMBKEV7701-40-63 18:46:00 Test Item Value Reference Range Interpretation Comments Creatinine Lvl (test code = Creatinine 0.9 0.5-1.4 Lvl) [facility] CenterKwjgsanRJEPHXJGBE3990-05-09 18:46:00 Test Item Value Reference Range Interpretation Comments Monocytes # (test code 0.5 See_Comment [Aut omated message] The = Monocytes #) system which generated this result tra nsmitted reference range : <=0.8. The reference r mitra was not used to int erpret this result as normal/abnormal . [facility] HospitalSdvqlycRNKZOVXQJHEJ5218-68-08 18:46:00 Test Item Value Reference Range Interpretation Comments Potassium Lvl (test code = Potassium 4.2 3.5-5.1 Lvl) [facility] CenterYnwdjexQXAKDLDIMY3660-37-65 18:46:00 Test Item Value Reference Range Interpretation Comments Basophils (test code = 1.1 See_Comment [Aut omated message] The Basophils) system which ge nerated this result tra nsmitted reference range : <=1.0. The reference r mitra was not used to int erpret this result as normal/abnormal . [facility] HospitalPkzktfvDGDHPZFWWNHF2546-69-23 18:46:00 Test Item Value Reference Range Interpretation Comments Sodium Lvl (test code = Sodium Lvl) 139 135-145 [facility] CenterZluzwfaVJPUJGEYZQ3677-53-29 18:46:00 Test Item Value Reference Range Interpretation Comments Lymphocytes # (test code = Lymphocytes 1.5 1.0-5.5 #) [facility] HospitalJkcovimETOGSWFHAUSR9661-66-22 18:46:00 Test Item Value Reference Range Interpretation Comments CO2 (test code = CO2) 24 24-32 [facility] CenterWiebxvwGCWZAQLWCJ0266-66-10 18:46:00 Test Item Value Reference Range Interpretation Comments Segs-Bands # (test code = Segs-Bands #) 2.9 1.5-8.1 [facility] HospitalAteadlvFSXZRTPWWHNJ8864-91-33 18:46:00 Test Item Value Reference Range Interpretation Comments BUN (test code = BUN) 16 7-22 [facility] CenterDtqmgawSUXZTTINCJ6814-49-30 18:46:00 Test Item Value Reference Range Interpretation Comments Eosinophils # (test code 0.2 See_Comment [A utomated message] The = Eosinophils #) system whic h generated this result tra nsmitted reference range : <=0.5. The reference r mitra was not used to int erpret this result as normal/abnormal . [facility] HospitalAnempwyBKTBQYRCHPZB4330-56-80 18:46:00 Test Item Value Reference Range Interpretation Comments Glucose Lvl (test code = Glucose Lvl) 141 70-99 [facility] CenterYbrtzfpKURYVXGOJP8930-10-10 18:46:00 Test Item Value Reference Range Interpretation Comments Basophils # (test code 0.1 See_Comment [Aut omated message] The = Basophils #) system which generated this result tra nsmitted reference range : <=0.2. The reference r mitra was not used to int erpret this result as normal/abnormal . [facility] HospitalJspqfoqFMWQHZFTNGRS2838-26-16 18:46:00 Test Item Value Reference Range Interpretation Comments Albumin Lvl (test code = Albumin Lvl) 3.6 3.5-5.0 [facility] CenterTuazokaCPSYPBTGGB5275-83-60 18:46:00 Test Item Value Reference Range Interpretation Comments PT (test code = PT) 11.2 s 12.0-14.7 [facility] HospitalNtsjwdsEOIVKQIIYJIA5194-07-54 18:46:00 Test Item Value Reference Range Interpretation Comments Alk Phos (test code = Alk Phos) 65 39-136 [facility] CenterJgejsbhPULDKADAJI8311-41-91 18:46:00 Test Item Value Reference Range Interpretation Comments INR (test code = INR) 0.82 0.85-1.17 [facility] HospitalRnuzklkBVCBXXTXUEJB8993-40-76 18:46:00 Test Item Value Reference Range Interpretation Comments Bili Total (test code = Bili Total) 0.3 0.2-1.3 [facility] CenterMvtvdkbTCNCNKCXOT4737-50-35 18:46:00 Test Item Value Reference Range Interpretation Comments PTT (test code = PTT) 28.6 s 22.9-35.8 [facility] HospitalRduyvbzPLHWZTJFOEYC0627-17-88 18:46:00 Test Item Value Reference Range Interpretation Comments ALT (test code = ALT) 100 See_Comment [Auto mated message] The system which ge nerated this result transmit elizabeth reference range : <=65. The reference range was not used to interpr et this result as margaret l/abnormal. [facility] CenterMshuiizAAYDUEHOCE2683-62-53 18:46:00 Test Item Value Reference Range Interpretation Comments MPV (test code = MPV) 8.1 7.4-10.4 [facility] HospitalTrcmoyrYPKPOKPDUVPS5446-24-48 18:46:00 Test Item Value Reference Range Interpretation Comments AST (test code = AST) 53 See_Comment [Auto mated message] The system which ge nerated this result transmit elizabeth reference range : <=37. The reference range was not used to interpr et this result as margaret l/abnormal. [facility] CenterFpexseeVHKPHZVEVJ1630-18-26 18:46:00 Test Item Value Reference Range Interpretation Comments Platelet (test code = Platelet) 301 133-450 [facility]woodWdmdetwTYSHNBGFMDGQ0696-32-02 18:46:00 Test Item Value Reference Range Interpretation Comments Total Protein (test code = Total 6.9 6.4-8.4 Protein) [facility] CenterEgnulwwAJZCYTXFEW5878-63-58 18:46:00 Test Item Value Reference Range Interpretation Comments RDW (test code = RDW) 14.5 11.5-14.5 [facility] CenterWdxxrhxXTRLOVFGMV7474-16-79 18:46:00 Test Item Value Reference Range Interpretation Comments Eosinophils (test code = 4.2 See_Comment [A utomated message] The Eosinophils) system which ge nerated this result tra nsmitted reference range : <=4.0. The reference r mitra was not used to int erpret this result as normal/abnormal . [facility] CenterFbyvqzbSEUZFWFPXP4806-96-82 18:46:00 Test Item Value Reference Range Interpretation Comments RBC (test code = RBC) 4.84 4.70-6.10 [facility] CenterCmulactLUXCJMICXV6475-28-28 18:46:00 Test Item Value Reference Range Interpretation Comments Segs (test code = Segs) 56.4 45.0-75.0 [facility] CenterWtqmapkLEMAKYGSSF5455-17-03 18:46:00 Test Item Value Reference Range Interpretation Comments Hgb (test code = Hgb) 14.4 14.0-18.0 [facility] CenterYmwhsrqVUEKDQVVVD2933-75-27 18:46:00 Test Item Value Reference Range Interpretation Comments Monocytes (test code = Monocytes) 10.3 2.0-12.0 [facility] CenterKxbsturBWEVNAVAIV2131-58-52 18:46:00 Test Item Value Reference Range Interpretation Comments WBC (test code = WBC) 5.2 3.7-10.4 [facility] CenterRgiixqqAWIQFLPNZL4787-10-76 18:46:00 Test Item Value Reference Range Interpretation Comments Lymphocytes (test code = Lymphocytes) 28.0 20.0-40.0 [facility] CenterOqoliedNLJDQXLIYL9663-33-55 18:46:00 Test Item Value Reference Range Interpretation Comments MCH (test code = MCH) 29.8 pg 27.0-31.0 [facility] CenterTkabmzdSXMNLIXUDK6135-39-83 18:46:00 Test Item Value Reference Range Interpretation Comments Monocytes # (test code 0.5 See_Comment [Aut omated message] The = Monocytes #) system which generated this result tra nsmitted reference range : <=0.8. The reference r mitra was not used to int erpret this result as normal/abnormal . [facility] CenterLhjnlyhQIIUEVXFBK6133-55-66 18:46:00 Test Item Value Reference Range Interpretation Comments MCV (test code = MCV) 92.0 80.0-94.0 [facility] CenterMrlttdpAEYFVSRWVF2309-59-63 18:46:00 Test Item Value Reference Range Interpretation Comments Basophils (test code = 1.1 See_Comment [Aut omated message] The Basophils) system which ge nerated this result tra nsmitted reference range : <=1.0. The reference r mitra was not used to int erpret this result as normal/abnormal . [facility] CenterQxriaijPJSSPWKDNN2329-86-25 18:46:00 Test Item Value Reference Range Interpretation Comments Hct (test code = Hct) 44.5 42.0-54.0 [facility] CenterVdkcrerEWCADFBREC2154-35-47 18:46:00 Test Item Value Reference Range Interpretation Comments Lymphocytes # (test code = Lymphocytes 1.5 1.0-5.5 #) [facility] CenterHzsxuptHLTWVUNOFN5749-43-32 18:46:00 Test Item Value Reference Range Interpretation Comments MCHC (test code = MCHC) 32.4 32.0-36.0 [facility] CenterVcvikijGETOMANWZX2793-26-93 18:46:00 Test Item Value Reference Range Interpretation Comments Segs-Bands # (test code = Segs-Bands #) 2.9 1.5-8.1 [facility]gwmetjHTQXNWUZMV4258-60-88 18:46:00 Test Item Value Reference Range Interpretation Comments [place]-Hep C Ab (test Negative *NA*(07/22/14 code = [place]-Hep C 1:46 PM) Ab) [facility] CenterVhozxmcZESHNTQEFL4944-69-30 18:46:00 Test Item Value Reference Range Interpretation Comments Eosinophils # (test code 0.2 See_Comment [A utomated message] The = Eosinophils #) system whic h generated this result tra nsmitted reference range : <=0.5. The reference r mitra was not used to int erpret this result as normal/abnormal . [facility]2015-06-09 18:46:00 Test Item Value Reference Range Interpretation Comments UA Urobilinogen (test code = UA <=1.0 mg/dL 0.1-1.0 Urobilinogen) [facility] CenterXtziyitRLHVDAZOZP9596-98-05 18:46:00 Test Item Value Reference Range Interpretation Comments Basophils # (test code 0.1 See_Comment [Aut omated message] The = Basophils #) system which generated this result tra nsmitted reference range : <=0.2. The reference r mitra was not used to int erpret this result as normal/abnormal . [facility]2015-06-09 18:46:00 Test Item Value Reference Range Interpretation Comments UA Sq Epi (test code = UA Sq Epi) None Seen [facility] CenterJvmxjhxIDUYTTDYKT0799-70-83 18:46:00 Test Item Value Reference Range Interpretation Comments PT (test code = PT) 11.2 s 12.0-14.7 [facility]2015-06-09 18:46:00 Test Item Value Reference Range Interpretation Comments UA Leuk Est (test Negative (07/22/14 1:46 code = UA Leuk Est) PM) [facility] CenterJqgnpkuKSCAMRZSTZ9720-19-76 18:46:00 Test Item Value Reference Range Interpretation Comments INR (test code = INR) 0.82 0.85-1.17 [facility]2015-06-09 18:46:00 Test Item Value Reference Range Interpretation Comments UA Nitrite (test code Negative (07/22/14 1:46 = UA Nitrite) PM) [facility] CenterVljzpzvYVBQDVPCPO7750-22-32 18:46:00 Test Item Value Reference Range Interpretation Comments PTT (test code = PTT) 28.6 s 22.9-35.8 [facility]2015-06-09 18:46:00 Test Item Value Reference Range Interpretation Comments UA Blood (test code = Negative (07/22/14 1:46 UA Blood) PM) [facility] CenterVcbardnWIXHGIVCCT7072-20-87 18:46:00 Test Item Value Reference Range Interpretation Comments MPV (test code = MPV) 8.1 7.4-10.4 [facility] AND [id number] 18:46:00 Test Item Value Reference Range Interpretation Comments UA Ketones (test code = UA Negative mg/dL Ketones) [facility] CenterNczesleCMJGDGIWXA8654-76-75 18:46:00 Test Item Value Reference Range Interpretation Comments Platelet (test code = Platelet) 301 133-450 [facility] AND [id number] 18:46:00 Test Item Value Reference Range Interpretation Comments UA Bili (test code = Negative *NA*(07/22/14 UA Bili) 1:46 PM) [facility] CenterRwiexbaCBWKZGSBVI1926-89-13 18:46:00 Test Item Value Reference Range Interpretation Comments RDW (test code = RDW) 14.5 11.5-14.5 [facility] AND [id number] 18:46:00 Test Item Value Reference Range Interpretation Comments UA Bacteria (test code = UA Occasional /HPF Bacteria) [facility] CenterKazloipMCYSFMOYCC5989-72-08 18:46:00 Test Item Value Reference Range Interpretation Comments RBC (test code = RBC) 4.84 4.70-6.10 [facility] AND [id number] 18:46:00 Test Item Value Reference Range Interpretation Comments UA RBC (test code = no gt See_Comment [Automa elizabeth message] The UA RBC) system which ge nerated this result transmit elizabeth reference range : <=2. The reference range was not used to interpr et this result as margaret l/abnormal. [facility] CenterOrdtzunGRKMNIBWAE2911-17-55 18:46:00 Test Item Value Reference Range Interpretation Comments Hgb (test code = Hgb) 14.4 14.0-18.0 [facility] AND [id number] 18:46:00 Test Item Value Reference Range Interpretation Comments UA WBC (test code = 1 See_Comment [Automa elizabeth message] The UA WBC) system which ge nerated this result transmit elizabeth reference range : <=5. The reference range was not used to interpr et this result as margaret l/abnormal. [facility] CenterJgguvtkVMUTUFTOUI6103-22-87 18:46:00 Test Item Value Reference Range Interpretation Comments WBC (test code = WBC) 5.2 3.7-10.4 [facility]2015-06-09 18:46:00 Test Item Value Reference Range Interpretation Comments UA Glucose (test code = UA Glucose) 30 mg/dL [facility]IlmbznsLEGFESNEAF2393-[facility]-01 18:46:00 Test Item Value Reference Range Interpretation Comments MCH (test code = MCH) 29.8 pg 27.0-31.0 [facility] AND [id number] 18:46:00 Test Item Value Reference Range Interpretation Comments UA Protein (test code = UA Negative mg/dL Protein) [facility] CenterMnilatmSCSXJKBLXH7413-64-50 18:46:00 Test Item Value Reference Range Interpretation Comments MCV (test code = MCV) 92.0 80.0-94.0 [facility] AND [id number] 18:46:00 Test Item Value Reference Range Interpretation Comments UA pH (test code = UA pH) 6.5 5.0-8.0 [facility] CenterWgcpvilOKTNDWIFQG7613-99-01 18:46:00 Test Item Value Reference Range Interpretation Comments Hct (test code = Hct) 44.5 42.0-54.0 [facility] AND [id number] 18:46:00 Test Item Value Reference Range Interpretation Comments UA Turbidity (test code = Clear (07/22/14 1:46 UA Turbidity) PM) [facility] CenterZprrlikYSUAEMKOER9232-25-01 18:46:00 Test Item Value Reference Range Interpretation Comments MCHC (test code = MCHC) 32.4 32.0-36.0 [facility] AND [id number] 18:46:00 Test Item Value Reference Range Interpretation Comments UA Spec Grav (test code = UA Spec Grav) 1.010 [facility]YajesyaEVKTFDAEMH8271-10-76 18:46:00 Test Item Value Reference Range Interpretation Comments [place]-Hep C Ab (test Negative *NA*(07/22/14 code = [place]-Hep C 1:46 PM) Ab) [facility] AND [id number] 18:46:00 Test Item Value Reference Range Interpretation Comments UA Color (test code = Light Yellow UA Color) *NA*(07/22/14 1:46 PM) [facility] AND [id number] 18:46:00 Test Item Value Reference Range Interpretation Comments UA Urobilinogen (test code = UA <=1.0 mg/dL 0.1-1.0 Urobilinogen) [facility] AND [id number] 18:46:00 Test Item Value Reference Range Interpretation Comments UA Sq Epi (test code = UA Sq Epi) None Seen [facility] AND [id number] 18:46:00 Test Item Value Reference Range Interpretation Comments UA Leuk Est (test Negative (07/22/14 1:46 code = UA Leuk Est) PM) [facility] AND [id number] 18:46:00 Test Item Value Reference Range Interpretation Comments UA Nitrite (test code Negative (07/22/14 1:46 = UA Nitrite) PM) [facility] AND [id number] 18:46:00 Test Item Value Reference Range Interpretation Comments UA Blood (test code = Negative (07/22/14 1:46 UA Blood) PM) [facility] AND [id number] 18:46:00 Test Item Value Reference Range Interpretation Comments UA Ketones (test code = UA Negative mg/dL Ketones) [facility] AND [id number] 18:46:00 Test Item Value Reference Range Interpretation Comments UA Bili (test code = Negative *NA*(07/22/14 UA Bili) 1:46 PM) [facility] AND [id number] 18:46:00 Test Item Value Reference Range Interpretation Comments UA Bacteria (test code = UA Occasional /HPF Bacteria) [facility] AND [id number] 18:46:00 Test Item Value Reference Range Interpretation Comments UA RBC (test code = no gt See_Comment [Automa elizabeth message] The UA RBC) system which ge nerated this result transmit elizabeth reference range : <=2. The reference range was not used to interpr et this result as margaret l/abnormal. [facility] AND [id number] 18:46:00 Test Item Value Reference Range Interpretation Comments UA WBC (test code = 1 See_Comment [Automa elizabeth message] The UA WBC) system which ge nerated this result transmit elizabeth reference range : <=5. The reference range was not used to interpr et this result as margaret l/abnormal. [facility] AND [id number] 18:46:00 Test Item Value Reference Range Interpretation Comments UA Glucose (test code = UA Glucose) 30 mg/dL [facility] AND [id number] 18:46:00 Test Item Value Reference Range Interpretation Comments UA Protein (test code = UA Negative mg/dL Protein) [facility] AND [id number] 18:46:00 Test Item Value Reference Range Interpretation Comments UA pH (test code = UA pH) 6.5 5.0-8.0 [facility] AND [id number] 18:46:00 Test Item Value Reference Range Interpretation Comments UA Turbidity (test code = Clear (07/22/14 1:46 UA Turbidity) PM) [facility] AND [id number] 18:46:00 Test Item Value Reference Range Interpretation Comments UA Spec Grav (test code = UA Spec Grav) 1.010 [facility] AND [id number] 18:46:00 Test Item Value Reference Range Interpretation Comments UA Color (test code = Light Yellow UA Color) *NA*(07/22/14 1:46 PM) [facility] [id number] 18:46:00 Test Item Value Reference Range Interpretation Comments Magnesium Lvl (test code = Magnesium 1.8 1.8-2.4 Lvl) [facility] HospitalYlevxwkSOJBTLIARZGD4915-84-66 18:46:00 Test Item Value Reference Range Interpretation Comments AGAP (test code = AGAP) 13.2 10.0-20.0 [facility] HospitalZzurvfcBDJHGJENZPIM3014-03-56 18:46:00 Test Item Value Reference Range Interpretation Comments B/C Ratio (test code = B/C Ratio) 18 6-25 [facility] HospitalLsjjsyoSLQOVEMNPILV6946-73-14 18:46:00 Test Item Value Reference Range Interpretation Comments A/G Ratio (test code = A/G Ratio) 1.1 0.7-1.6 [facility] HospitalJntqmujDATBZSSTPRZH7000-32-74 18:46:00 Test Item Value Reference Range Interpretation Comments Globulin (test code = Globulin) 3.3 2.0-4.0 [facility] HospitalYevgttiVZHQBBCSVVWA4451-84-92 18:46:00 Test Item Value Reference Range Interpretation Comments eGFR (test code = eGFR) 99 [facility] HospitalYbgbenpAZZDONSBALJU4643-19-46 18:46:00 Test Item Value Reference Range Interpretation Comments Calcium Lvl (test code = Calcium Lvl) 9.0 8.5-10.5 [facility] HospitalWfepqkzNRNXHMLBZHZG8993-94-34 18:46:00 Test Item Value Reference Range Interpretation Comments Chloride Lvl (test code = Chloride Lvl) 106 95-109 [facility] HospitalXyfpoomZYWEKHWPWGQU9207-44-06 18:46:00 Test Item Value Reference Range Interpretation Comments Creatinine Lvl (test code = Creatinine 0.9 0.5-1.4 Lvl) [facility] HospitalClnxxghOKWAFVCTATJQ0796-59-73 18:46:00 Test Item Value Reference Range Interpretation Comments Potassium Lvl (test code = Potassium 4.2 3.5-5.1 Lvl) [facility] HospitalJrxyirgVNSHYDLSLYYX1551-17-25 18:46:00 Test Item Value Reference Range Interpretation Comments Sodium Lvl (test code = Sodium Lvl) 139 135-145 [facility] HospitalPmwtnlcJHBAUUTDUKTA0640-74-96 18:46:00 Test Item Value Reference Range Interpretation Comments CO2 (test code = CO2) 24 24-32 [facility] HospitalQmahboaMUJHXILMHAHZ0039-65-94 18:46:00 Test Item Value Reference Range Interpretation Comments BUN (test code = BUN) 16 7-22 [facility] HospitalBnppqvqJSJKHNVDNEOF7053-32-68 18:46:00 Test Item Value Reference Range Interpretation Comments Glucose Lvl (test code = Glucose Lvl) 141 70-99 [facility] HospitalFgbuwcaWHHNZWZDUKLZ6972-84-92 18:46:00 Test Item Value Reference Range Interpretation Comments Albumin Lvl (test code = Albumin Lvl) 3.6 3.5-5.0 [facility] HospitalZsygmorXVNYJIIRWZMG9650-04-81 18:46:00 Test Item Value Reference Range Interpretation Comments Alk Phos (test code = Alk Phos) 65 39-136 [facility] HospitalTldewgyUJFAOKVYDYSD8596-54-05 18:46:00 Test Item Value Reference Range Interpretation Comments Bili Total (test code = Bili Total) 0.3 0.2-1.3 [facility] HospitalOwtjsjeYWSGPTLKWUDV0780-26-52 18:46:00 Test Item Value Reference Range Interpretation Comments ALT (test code = ALT) 100 See_Comment [Auto mated message] The system which ge nerated this result transmit elizabeth reference range : <=65. The reference range was not used to interpr et this result as margaret l/abnormal. [facility] HospitalDipszeoBXGPUPKXIEIZ2850-03-75 18:46:00 Test Item Value Reference Range Interpretation Comments AST (test code = AST) 53 See_Comment [Auto mated message] The system which ge nerated this result transmit eilzabeth reference range : <=37. The reference range was not used to interpr et this result as margaret l/abnormal. [facility] HospitalOwaviqxJUWOQXAQUHZZ5323-80-30 18:46:00 Test Item Value Reference Range Interpretation Comments Total Protein (test code = Total 6.9 6.4-8.4 Protein) [facility] CenterEftecpcFIYNRBGWLL3460-26-31 18:46:00 Test Item Value Reference Range Interpretation Comments Eosinophils (test code = 4.2 See_Comment [A utomated message] The Eosinophils) system which ge nerated this result tra nsmitted reference range : <=4.0. The reference r mitra was not used to int erpret this result as normal/abnormal . [facility] CenterQeygydgPEDWRJMQZD3820-51-64 18:46:00 Test Item Value Reference Range Interpretation Comments Segs (test code = Segs) 56.4 45.0-75.0 [facility] CenterCfpwiinUMOQNVNGFZ5511-05-59 18:46:00 Test Item Value Reference Range Interpretation Comments Monocytes (test code = Monocytes) 10.3 2.0-12.0 [facility]QjyyccbKGOEZLYOPK1390-59-16 18:46:00 Test Item Value Reference Range Interpretation Comments Lymphocytes (test code = Lymphocytes) 28.0 20.0-40.0 [facility] CenterRswpmjgTODPBUHVYQ8974-03-69 18:46:00 Test Item Value Reference Range Interpretation Comments Monocytes # (test code 0.5 See_Comment [Aut omated message] The = Monocytes #) system which generated this result tra nsmitted reference range : <=0.8. The reference r mitra was not used to int erpret this result as normal/abnormal . [facility] CenterGqxaanvIMCZYBNMQM4046-87-49 18:46:00 Test Item Value Reference Range Interpretation Comments Basophils (test code = 1.1 See_Comment [Aut omated message] The Basophils) system which ge nerated this result tra nsmitted reference range : <=1.0. The reference r mitra was not used to int erpret this result as normal/abnormal . [facility] CenterOrvfyzePIIHADPQYN0124-95-03 18:46:00 Test Item Value Reference Range Interpretation Comments Lymphocytes # (test code = Lymphocytes 1.5 1.0-5.5 #) [facility] CenterAojfrjyQMDHYAPIBS4590-66-18 18:46:00 Test Item Value Reference Range Interpretation Comments Segs-Bands # (test code = Segs-Bands #) 2.9 1.5-8.1 [facility] CenterUjdcyzlYWHWDKMYPY9455-82-96 18:46:00 Test Item Value Reference Range Interpretation Comments Eosinophils # (test code 0.2 See_Comment [A utomated message] The = Eosinophils #) system whic h generated this result tra nsmitted reference range : <=0.5. The reference r imtra was not used to int erpret this result as normal/abnormal . [facility] CenterCwfurekYQZVZOZCAW4943-34-20 18:46:00 Test Item Value Reference Range Interpretation Comments Basophils # (test code 0.1 See_Comment [Aut omated message] The = Basophils #) system which generated this result tra nsmitted reference range : <=0.2. The reference r mitra was not used to int erpret this result as normal/abnormal . [facility] CenterAvivjbmTYOSNXZYEF9139-58-21 18:46:00 Test Item Value Reference Range Interpretation Comments PT (test code = PT) 11.2 s 12.0-14.7 [facility] CenterKeeqhxeXHUXBAKUUQ0719-85-01 18:46:00 Test Item Value Reference Range Interpretation Comments INR (test code = INR) 0.82 0.85-1.17 [facility] CenterGviwlkjMIBEWIAJRT5243-49-99 18:46:00 Test Item Value Reference Range Interpretation Comments PTT (test code = PTT) 28.6 s 22.9-35.8 [facility] CenterYqqhrdjTERLMXHSSH4838-43-71 18:46:00 Test Item Value Reference Range Interpretation Comments MPV (test code = MPV) 8.1 7.4-10.4 [facility] CenterGhwynnyUDHLIWRSXS8770-44-87 18:46:00 Test Item Value Reference Range Interpretation Comments Platelet (test code = Platelet) 301 133-450 [facility] CenterXvvidbiXJINDHTVRG7264-06-21 18:46:00 Test Item Value Reference Range Interpretation Comments RDW (test code = RDW) 14.5 11.5-14.5 [facility] CenterQdmiqgkUDBEHBWAZZ2363-24-41 18:46:00 Test Item Value Reference Range Interpretation Comments RBC (test code = RBC) 4.84 4.70-6.10 [facility]NttkuryBSDKEPYOSV8499-52-84 18:46:00 Test Item Value Reference Range Interpretation Comments Hgb (test code = Hgb) 14.4 14.0-18.0 [facility] QvrfkhtQAWGBAXZKO0212-47-42 18:46:00 Test Item Value Reference Range Interpretation Comments WBC (test code = WBC) 5.2 3.7-10.4 [facility]hmioiaZBOVPWZNJQ3918-50-24 18:46:00 Test Item Value Reference Range Interpretation Comments MCH (test code = MCH) 29.8 pg 27.0-31.0 [facility] HospitalUwpzibcKYAJTMZRQL5573-12-18 18:46:00 Test Item Value Reference Range Interpretation Comments MCV (test code = MCV) 92.0 80.0-94.0 [facility]AugonxvKXUIMUDSBA7374-89-34 18:46:00 Test Item Value Reference Range Interpretation Comments Hct (test code = Hct) 44.5 42.0-54.0 [facility] HospitalMxcfmhyQLYPVGNZEI8092-11-32 18:46:00 Test Item Value Reference Range Interpretation Comments MCHC (test code = MCHC) 32.4 32.0-36.0 [facility]IdvxjzcZJZGXAWRRP4933-25-93 18:46:00 Test Item Value Reference Range Interpretation Comments [place]-Hep C Ab (test Negative *NA*(07/22/14 code = [place]-Hep C 1:46 PM) Ab) [facility] AND [id number] 18:46:00 Test Item Value Reference Range Interpretation Comments UA Urobilinogen (test code = UA <=1.0 mg/dL 0.1-1.0 Urobilinogen) [facility] AND [id number] 18:46:00 Test Item Value Reference Range Interpretation Comments UA Sq Epi (test code = UA Sq Epi) None Seen [facility] AND [id number] 18:46:00 Test Item Value Reference Range Interpretation Comments UA Leuk Est (test Negative (07/22/14 1:46 code = UA Leuk Est) PM) [facility] AND [id number] 18:46:00 Test Item Value Reference Range Interpretation Comments UA Nitrite (test code Negative (07/22/14 1:46 = UA Nitrite) PM) [facility] AND [id number] 18:46:00 Test Item Value Reference Range Interpretation Comments UA Blood (test code = Negative (07/22/14 1:46 UA Blood) PM) [facility] AND [id number] 18:46:00 Test Item Value Reference Range Interpretation Comments UA Ketones (test code = UA Negative mg/dL Ketones) [facility] AND [id number] 18:46:00 Test Item Value Reference Range Interpretation Comments UA Bili (test code = Negative *NA*(07/22/14 UA Bili) 1:46 PM) [facility] AND [id number] 18:46:00 Test Item Value Reference Range Interpretation Comments UA Bacteria (test code = UA Occasional /HPF Bacteria) [facility] AND [id number] 18:46:00 Test Item Value Reference Range Interpretation Comments UA RBC (test code = no gt See_Comment [Automa elizabeth message] The UA RBC) system which ge nerated this result transmit elizabeth reference range : <=2. The reference range was not used to interpr et this result as margaret l/abnormal. [facility] AND [id number] 18:46:00 Test Item Value Reference Range Interpretation Comments UA WBC (test code = 1 See_Comment [Automa elizabeth message] The UA WBC) system which ge nerated this result transmit elizabeth reference range : <=5. The reference range was not used to interpr et this result as margaret l/abnormal. [facility] AND [id number] 18:46:00 Test Item Value Reference Range Interpretation Comments UA Glucose (test code = UA Glucose) 30 mg/dL [facility] AND [id number] 18:46:00 Test Item Value Reference Range Interpretation Comments UA Protein (test code = UA Negative mg/dL Protein) [facility] AND [id number] 18:46:00 Test Item Value Reference Range Interpretation Comments UA pH (test code = UA pH) 6.5 5.0-8.0 [facility] AND [id number] 18:46:00 Test Item Value Reference Range Interpretation Comments UA Turbidity (test code = Clear (07/22/14 1:46 UA Turbidity) PM) [facility] AND [id number] 18:46:00 Test Item Value Reference Range Interpretation Comments UA Spec Grav (test code = UA Spec Grav) 1.010 [facility] [id number] 18:46:00 Test Item Value Reference Range Interpretation Comments UA Color (test code = Light Yellow UA Color) *NA*(07/22/14 1:46 PM) [facility] [id number] 18:46:00 Test Item Value Reference Range Interpretation Comments Magnesium Lvl (test code = Magnesium 1.8 1.8-2.4 Lvl) [facility]GmnqdzpNRXLKPCKXFQI1815-30-66 18:46:00 Test Item Value Reference Range Interpretation Comments AGAP (test code = AGAP) 13.2 10.0-20.0 [facility] HospitalUyrybhsEXMDCJCBQURM9003-08-10 18:46:00 Test Item Value Reference Range Interpretation Comments B/C Ratio (test code = B/C Ratio) 18 6-25 [facility] HospitalBcnteyfVEBKBSMNYPNB6526-89-92 18:46:00 Test Item Value Reference Range Interpretation Comments A/G Ratio (test code = A/G Ratio) 1.1 0.7-1.6 [facility] HospitalJgxfairDSIGXBWLRORF5756-34-80 18:46:00 Test Item Value Reference Range Interpretation Comments Globulin (test code = Globulin) 3.3 2.0-4.0 [facility] HospitalYpmmaxgKODEWOIKAMQU7648-26-48 18:46:00 Test Item Value Reference Range Interpretation Comments eGFR (test code = eGFR) 99 [facility] HospitalEfyffohMNXCNLGSKTDT9575-54-98 18:46:00 Test Item Value Reference Range Interpretation Comments Calcium Lvl (test code = Calcium Lvl) 9.0 8.5-10.5 [facility] HospitalIclktvmUFTOBDCPUOFX4669-79-16 18:46:00 Test Item Value Reference Range Interpretation Comments Chloride Lvl (test code = Chloride Lvl) 106 95-109 [facility] HospitalYfqjhezJWSZKCKQQECL3604-59-59 18:46:00 Test Item Value Reference Range Interpretation Comments Creatinine Lvl (test code = Creatinine 0.9 0.5-1.4 Lvl) [facility] HospitalJnsidfqCHZHNBMFJNAD4696-79-37 18:46:00 Test Item Value Reference Range Interpretation Comments Potassium Lvl (test code = Potassium 4.2 3.5-5.1 Lvl) [facility] HospitalZzluxopIKIXLZSBBOIC2885-75-80 18:46:00 Test Item Value Reference Range Interpretation Comments Sodium Lvl (test code = Sodium Lvl) 139 135-145 [facility] HospitalGmngojiDPEDTWNHBAFW8494-70-00 18:46:00 Test Item Value Reference Range Interpretation Comments CO2 (test code = CO2) 24 24-32 [facility] HospitalIthkpbfFANMGOHFOUWJ5913-55-68 18:46:00 Test Item Value Reference Range Interpretation Comments BUN (test code = BUN) 16 7-22 [facility] HospitalEhhmqcuEGPYJLKAORLL8690-38-53 18:46:00 Test Item Value Reference Range Interpretation Comments Glucose Lvl (test code = Glucose Lvl) 141 70-99 [facility] HospitalFyfgicjWFTSXFNGKBZZ2804-80-50 18:46:00 Test Item Value Reference Range Interpretation Comments Albumin Lvl (test code = Albumin Lvl) 3.6 3.5-5.0 [facility] HospitalJyyvrebVYYNAGNLUIHP5994-11-55 18:46:00 Test Item Value Reference Range Interpretation Comments Alk Phos (test code = Alk Phos) 65 39-136 [facility] HospitalCkehpqeAKHDZKFQXJWI4726-80-31 18:46:00 Test Item Value Reference Range Interpretation Comments Bili Total (test code = Bili Total) 0.3 0.2-1.3 [facility] HospitalNnxtweyQAQTYOJYKNZL9655-79-72 18:46:00 Test Item Value Reference Range Interpretation Comments ALT (test code = ALT) 100 See_Comment [Auto mated message] The system which ge nerated this result transmit elizabeth reference range : <=65. The reference range was not used to interpr et this result as margaret l/abnormal. [facility] HospitalXsdssvoQJQRWFKTGGVF9794-69-08 18:46:00 Test Item Value Reference Range Interpretation Comments AST (test code = AST) 53 See_Comment [Auto mated message] The system which ge nerated this result transmit elizabeth reference range : <=37. The reference range was not used to interpr et this result as margaret l/abnormal. [facility] HospitalVxadyckXFHUOUQFRNIK6212-31-22 18:46:00 Test Item Value Reference Range Interpretation Comments Total Protein (test code = Total 6.9 6.4-8.4 Protein) [facility]JsrutihYFSWOGSNEE3364-22-69 18:46:00 Test Item Value Reference Range Interpretation Comments Eosinophils (test code = 4.2 See_Comment [A utomated message] The Eosinophils) system which ge nerated this result tra nsmitted reference range : <=4.0. The reference r mitra was not used to int erpret this result as normal/abnormal . [facility] CenterHbtbafeXSRVCBSRHC8927-88-76 18:46:00 Test Item Value Reference Range Interpretation Comments Segs (test code = Segs) 56.4 45.0-75.0 [facility] CenterRtocixtFGLUZTPRGX9795-35-36 18:46:00 Test Item Value Reference Range Interpretation Comments Monocytes (test code = Monocytes) 10.3 2.0-12.0 [facility] CenterHxocomzFTQAKSSOKH1432-34-73 18:46:00 Test Item Value Reference Range Interpretation Comments Lymphocytes (test code = Lymphocytes) 28.0 20.0-40.0 [facility] CenterQuuncgtFBIFNGCKCJ2364-58-89 18:46:00 Test Item Value Reference Range Interpretation Comments Monocytes # (test code 0.5 See_Comment [Aut omated message] The = Monocytes #) system which generated this result tra nsmitted reference range : <=0.8. The reference r mitra was not used to int erpret this result as normal/abnormal . [facility] CenterZmxehoyVAIJBVHBTJ6582-21-99 18:46:00 Test Item Value Reference Range Interpretation Comments Basophils (test code = 1.1 See_Comment [Aut omated message] The Basophils) system which ge nerated this result tra nsmitted reference range : <=1.0. The reference r mitra was not used to int erpret this result as normal/abnormal . [facility] CenterCuiounmMDDDDKIJJA7058-92-50 18:46:00 Test Item Value Reference Range Interpretation Comments Lymphocytes # (test code = Lymphocytes 1.5 1.0-5.5 #) [facility] CenterJxubjpmTGCDEOWYRI3314-57-64 18:46:00 Test Item Value Reference Range Interpretation Comments Segs-Bands # (test code = Segs-Bands #) 2.9 1.5-8.1 [facility] CenterZvgtyyeSYDWRZFPNE7546-70-27 18:46:00 Test Item Value Reference Range Interpretation Comments Eosinophils # (test code 0.2 See_Comment [A utomated message] The = Eosinophils #) system [facility] generated this result tra nsmitted reference range : <=0.5. The reference r mitra was not used to int erpret this result as normal/abnormal . [facility] CenterRmxnkjrKGRKLXPLKZ5570-47-84 18:46:00 Test Item Value Reference Range Interpretation Comments Basophils # (test code 0.1 See_Comment [Aut omated message] The = Basophils #) system which generated this result tra nsmitted reference range : <=0.2. The reference r mitra was not used to int erpret this result as normal/abnormal . [facility] CenterZixbhzaYLIKCOIMFO5961-54-53 18:46:00 Test Item Value Reference Range Interpretation Comments PT (test code = PT) 11.2 s 12.0-14.7 [facility] CenterZqnelpkVVBZDGHTHU9905-96-93 18:46:00 Test Item Value Reference Range Interpretation Comments INR (test code = INR) 0.82 0.85-1.17 [facility] CenterOzvrulcEYSSJBGEYB7772-74-20 18:46:00 Test Item Value Reference Range Interpretation Comments PTT (test code = PTT) 28.6 s 22.9-35.8 [facility] CenterZayjrmuVVJJASDKXA6931-03-81 18:46:00 Test Item Value Reference Range Interpretation Comments MPV (test code = MPV) 8.1 7.4-10.4 [facility] CenterIosweuhZEMQQYUVUG6259-38-09 18:46:00 Test Item Value Reference Range Interpretation Comments Platelet (test code = Platelet) 301 133-450 [facility] CenterQgbrtlrIKZQLDFPEI3189-50-72 18:46:00 Test Item Value Reference Range Interpretation Comments RDW (test code = RDW) 14.5 11.5-14.5 [facility] CenterBjntgmsNZQRVJCQEY5832-85-44 18:46:00 Test Item Value Reference Range Interpretation Comments RBC (test code = RBC) 4.84 4.70-6.10 [facility] CenterQkgmmvgUEKCHIOMCI5859-29-13 18:46:00 Test Item Value Reference Range Interpretation Comments Hgb (test code = Hgb) 14.4 14.0-18.0 [facility] CenterYzcnywxLWNLUTPQQW9262-76-50 18:46:00 Test Item Value Reference Range Interpretation Comments WBC (test code = WBC) 5.2 3.7-10.4 [facility] CenterPwhfxfbDQTGMLXHXB0282-77-03 18:46:00 Test Item Value Reference Range Interpretation Comments MCH (test code = MCH) 29.8 pg 27.0-31.0 [facility] CenterSkzvritZBNJMSNRXC0519-93-90 18:46:00 Test Item Value Reference Range Interpretation Comments MCV (test code = MCV) 92.0 80.0-94.0 [facility]MszpowoVXZMAPGVLN2981-97-58 18:46:00 Test Item Value Reference Range Interpretation Comments Hct (test code = Hct) 44.5 42.0-54.0 [facility]CvzhsiyHVKPVLPEXG1486-57-71 18:46:00 Test Item Value Reference Range Interpretation Comments MCHC (test code = MCHC) 32.4 32.0-36.0 [facility] NortheastYkemqoyLRMKTFICUQ0920-49-73 18:46:00 Test Item Value Reference Range Interpretation Comments [place]-Hep C Ab (test Negative *NA*(07/22/14 code = [place]-Hep C 1:46 PM) Ab) [facility] AND [id number] 18:46:00 Test Item Value Reference Range Interpretation Comments UA Urobilinogen (test code = UA <=1.0 mg/dL 0.1-1.0 Urobilinogen) [facility] AND [id number] 18:46:00 Test Item Value Reference Range Interpretation Comments UA Sq Epi (test code = UA Sq Epi) None Seen [facility] AND [id number] 18:46:00 Test Item Value Reference Range Interpretation Comments UA Leuk Est (test Negative (07/22/14 1:46 code = UA Leuk Est) PM) [facility] AND [id number] 18:46:00 Test Item Value Reference Range Interpretation Comments UA Nitrite (test code Negative (07/22/14 1:46 = UA Nitrite) PM) [facility] AND [id number] 18:46:00 Test Item Value Reference Range Interpretation Comments UA Blood (test code = Negative (07/22/14 1:46 UA Blood) PM) [facility] AND [id number] 18:46:00 Test Item Value Reference Range Interpretation Comments UA Ketones (test code = UA Negative mg/dL Ketones) [facility] AND [id number] 18:46:00 Test Item Value Reference Range Interpretation Comments UA Bili (test code = Negative *NA*(07/22/14 UA Bili) 1:46 PM) [facility] AND [id number] 18:46:00 Test Item Value Reference Range Interpretation Comments UA Bacteria (test code = UA Occasional /HPF Bacteria) [facility] AND [id number] 18:46:00 Test Item Value Reference Range Interpretation Comments UA RBC (test code = no gt See_Comment [Automa elizabeth message] The UA RBC) system which ge nerated this result transmit elizabeth reference range : <=2. The reference range was not used to interpr et this result as margaret l/abnormal. [facility] [id number] 18:46:00 Test Item Value Reference Range Interpretation Comments UA WBC (test code = 1 See_Comment [Automa elizabeth message] The UA WBC) system which ge nerated this result transmit elizabeth reference range : <=5. The reference range was not used to interpr et this result as margaret l/abnormal. [facility] AND [id number] 18:46:00 Test Item Value Reference Range Interpretation Comments UA Glucose (test code = UA Glucose) 30 mg/dL [facility] AND [id number] 18:46:00 Test Item Value Reference Range Interpretation Comments UA Protein (test code = UA Negative mg/dL Protein) [facility] AND [id number] 18:46:00 Test Item Value Reference Range Interpretation Comments UA pH (test code = UA pH) 6.5 5.0-8.0 [facility] AND [id number] 18:46:00 Test Item Value Reference Range Interpretation Comments UA Turbidity (test code = Clear (07/22/14 1:46 UA Turbidity) PM) [facility] AND [id number] 18:46:00 Test Item Value Reference Range Interpretation Comments UA Spec Grav (test code = UA Spec Grav) 1.010 [facility] AND [id number] 18:46:00 Test Item Value Reference Range Interpretation Comments UA Color (test code = Light Yellow UA Color) *NA*(07/22/14 1:46 PM) [facility] [id number] 18:46:00 Test Item Value Reference Range Interpretation Comments Magnesium Lvl (test code = Magnesium 1.8 1.8-2.4 Lvl) [facility] UqgcvppZETDXTUMBVBN9782-95-83 18:46:00 Test Item Value Reference Range Interpretation Comments AGAP (test code = AGAP) 13.2 10.0-20.0 [facility] HospitalItckftoTZMZEGGPTJYQ6467-48-65 18:46:00 Test Item Value Reference Range Interpretation Comments B/C Ratio (test code = B/C Ratio) 18 6-25 [facility] HospitalCegbrojLDURMRLTGOPA0927-33-47 18:46:00 Test Item Value Reference Range Interpretation Comments A/G Ratio (test code = A/G Ratio) 1.1 0.7-1.6 [facility] HospitalOuiamuwHUDSEKALFPIE6148-66-88 18:46:00 Test Item Value Reference Range Interpretation Comments Globulin (test code = Globulin) 3.3 2.0-4.0 [facility] HospitalVoxhstpHKLIOVNHKXVO3323-97-02 18:46:00 Test Item Value Reference Range Interpretation Comments eGFR (test code = eGFR) 99 [facility] HospitalDbxqtacMAVDSHXVELRI7109-84-97 18:46:00 Test Item Value Reference Range Interpretation Comments Calcium Lvl (test code = Calcium Lvl) 9.0 8.5-10.5 [facility] HospitalQxezpwqTGBCTLGUZZHX9021-55-13 18:46:00 Test Item Value Reference Range Interpretation Comments Chloride Lvl (test code = Chloride Lvl) 106 95-109 [facility] HospitalLtpdtzqFFILBSUXMGTA0295-32-19 18:46:00 Test Item Value Reference Range Interpretation Comments Creatinine Lvl (test code = Creatinine 0.9 0.5-1.4 Lvl) [facility] HospitalAskkoubGRKHAOYBTOGX6470-15-21 18:46:00 Test Item Value Reference Range Interpretation Comments Potassium Lvl (test code = Potassium 4.2 3.5-5.1 Lvl) [facility] HospitalDofryurSSYWTFJTHHET4314-13-84 18:46:00 Test Item Value Reference Range Interpretation Comments Sodium Lvl (test code = Sodium Lvl) 139 135-145 [facility] HospitalRjdkxmzQZIZXTPHBFKN8787-60-13 18:46:00 Test Item Value Reference Range Interpretation Comments CO2 (test code = CO2) 24 24-32 [facility] HospitalDgnkercHIFTDHLOALSB8641-10-93 18:46:00 Test Item Value Reference Range Interpretation Comments BUN (test code = BUN) 16 7-22 [facility] HospitalMddvkxkPBVBDOSVLEGQ7150-12-59 18:46:00 Test Item Value Reference Range Interpretation Comments Glucose Lvl (test code = Glucose Lvl) 141 70-99 [facility] HospitalZayikgxNQZHLIQVZOFK5852-67-77 18:46:00 Test Item Value Reference Range Interpretation Comments Albumin Lvl (test code = Albumin Lvl) 3.6 3.5-5.0 [facility] HospitalKkhbozyZJTRICWUIGYF6612-42-59 18:46:00 Test Item Value Reference Range Interpretation Comments Alk Phos (test code = Alk Phos) 65 39-136 [facility] HospitalVhslvwcXXNDTPPOTOXX1858-90-70 18:46:00 Test Item Value Reference Range Interpretation Comments Bili Total (test code = Bili Total) 0.3 0.2-1.3 [facility] HospitalDdyfujvCBSGMAVURLCX8302-46-55 18:46:00 Test Item Value Reference Range Interpretation Comments ALT (test code = ALT) 100 See_Comment [Auto mated message] The system which ge nerated this result transmit elizabeth reference range : <=65. The reference range was not used to interpr et this result as margaret l/abnormal. [facility] HospitalRbfnhzbIBJWFGIYCTDZ7555-38-15 18:46:00 Test Item Value Reference Range Interpretation Comments AST (test code = AST) 53 See_Comment [Auto mated message] The system which ge nerated this result transmit elizabeth reference range : <=37. The reference range was not used to interpr et this result as margaret l/abnormal. [facility] HospitalFlbuioiDMPWBGKAQWGR6833-14-22 18:46:00 Test Item Value Reference Range Interpretation Comments Total Protein (test code = Total 6.9 6.4-8.4 Protein) [facility] CenterTtqkxctMJARAQZSSI4918-98-51 18:46:00 Test Item Value Reference Range Interpretation Comments Eosinophils (test code = 4.2 See_Comment [A utomated message] The Eosinophils) system which ge nerated this result tra nsmitted reference range : <=4.0. The reference r mitra was not used to int erpret this result as normal/abnormal . [facility] CenterPwwtltnSBNACYOFKI0698-41-86 18:46:00 Test Item Value Reference Range Interpretation Comments Segs (test code = Segs) 56.4 45.0-75.0 [facility] CenterNkwbcjfZKBYRVKTZB8496-81-71 18:46:00 Test Item Value Reference Range Interpretation Comments Monocytes (test code = Monocytes) 10.3 2.0-12.0 [facility] CenterExfcyjiLHBJAKQRVX1365-63-89 18:46:00 Test Item Value Reference Range Interpretation Comments Lymphocytes (test code = Lymphocytes) 28.0 20.0-40.0 [facility] CenterCoizadfELAABRCZEC7777-71-68 18:46:00 Test Item Value Reference Range Interpretation Comments Monocytes # (test code 0.5 See_Comment [Aut omated message] The = Monocytes #) system which generated this result tra nsmitted reference range : <=0.8. The reference r mitra was not used to int erpret this result as normal/abnormal . [facility] CenterZehcgkkPPZJTXNDZO7459-29-95 18:46:00 Test Item Value Reference Range Interpretation Comments Basophils (test code = 1.1 See_Comment [Aut omated message] The Basophils) system which ge nerated this result tra nsmitted reference range : <=1.0. The reference r mitra was not used to int erpret this result as normal/abnormal . [facility] CenterWmcinqqLJPSLTRRVZ1701-72-68 18:46:00 Test Item Value Reference Range Interpretation Comments Lymphocytes # (test code = Lymphocytes 1.5 1.0-5.5 #) [facility]GcdjweyEOOHPTDUOL9199-23-78 18:46:00 Test Item Value Reference Range Interpretation Comments Segs-Bands # (test code = Segs-Bands #) 2.9 1.5-8.1 [facility] CenterRohzxqePFTDSOXKKL1675-44-95 18:46:00 Test Item Value Reference Range Interpretation Comments Eosinophils # (test code 0.2 See_Comment [A utomated message] The = Eosinophils #) system whic h generated this result tra nsmitted reference range : <=0.5. The reference r mitra was not used to int erpret this result as normal/abnormal . [facility] CenterSdvfmkzZNUAXSWVMM7074-47-15 18:46:00 Test Item Value Reference Range Interpretation Comments Basophils # (test code 0.1 See_Comment [Aut omated message] The = Basophils #) system which generated this result tra nsmitted reference range : <=0.2. The reference r mitra was not used to int erpret this result as normal/abnormal . [facility] CenterWqvzfldBCUHHOKYSO9360-96-16 18:46:00 Test Item Value Reference Range Interpretation Comments PT (test code = PT) 11.2 s 12.0-14.7 [facility] CenterKdztejoNZWKUISYHK1255-15-60 18:46:00 Test Item Value Reference Range Interpretation Comments INR (test code = INR) 0.82 0.85-1.17 [facility] CenterXjuhgzrQCPEHAJGJM5464-60-04 18:46:00 Test Item Value Reference Range Interpretation Comments PTT (test code = PTT) 28.6 s 22.9-35.8 [facility] CenterJulpkssPGSWRVECLB3805-04-71 18:46:00 Test Item Value Reference Range Interpretation Comments MPV (test code = MPV) 8.1 7.4-10.4 [facility] CenterZdfmpcdPUHNEGIDUV3648-78-46 18:46:00 Test Item Value Reference Range Interpretation Comments Platelet (test code = Platelet) 301 133-450 [facility] CenterSjxforoRORYSPYKNI7491-01-92 18:46:00 Test Item Value Reference Range Interpretation Comments RDW (test code = RDW) 14.5 11.5-14.5 [facility] CenterRsjcgcyDMVDPGVAVR8384-50-70 18:46:00 Test Item Value Reference Range Interpretation Comments RBC (test code = RBC) 4.84 4.70-6.10 [facility] CenterNhcczppAVRLYQGQGU8289-32-99 18:46:00 Test Item Value Reference Range Interpretation Comments Hgb (test code = Hgb) 14.4 14.0-18.0 [facility] CenterTuecevgLEQOGBSKAC0619-90-05 18:46:00 Test Item Value Reference Range Interpretation Comments WBC (test code = WBC) 5.2 3.7-10.4 [facility] CenterJpoaqbuEJXAYHAXQT3143-86-75 18:46:00 Test Item Value Reference Range Interpretation Comments MCH (test code = MCH) 29.8 pg 27.0-31.0 [facility] CenterQvahzxhIUVIKALCGU9155-10-58 18:46:00 Test Item Value Reference Range Interpretation Comments MCV (test code = MCV) 92.0 80.0-94.0 [facility] CenterSfhzjtaCBYXBCXOWM1027-06-00 18:46:00 Test Item Value Reference Range Interpretation Comments Hct (test code = Hct) 44.5 42.0-54.0 [facility] CenterYfkmnwtNVCMDNAWQN0657-62-73 18:46:00 Test Item Value Reference Range Interpretation Comments MCHC (test code = MCHC) 32.4 32.0-36.0 [facility]gxgqdyNGMCMBJGLY1459-56-98 18:46:00 Test Item Value Reference Range Interpretation Comments [place]-Hep C Ab (test Negative *NA*(07/22/14 code = [place]Hep C 1:46 PM) Ab) [facility] AND [id number] 18:46:00 Test Item Value Reference Range Interpretation Comments UA Urobilinogen (test code = UA <=1.0 mg/dL 0.1-1.0 Urobilinogen) [facility] AND [id number] 18:46:00 Test Item Value Reference Range Interpretation Comments UA Sq Epi (test code = UA Sq Epi) None Seen [facility] AND [id number] 18:46:00 Test Item Value Reference Range Interpretation Comments UA Leuk Est (test Negative (07/22/14 1:46 code = UA Leuk Est) PM) [facility] AND [id number] 18:46:00 Test Item Value Reference Range Interpretation Comments UA Nitrite (test code Negative (07/22/14 1:46 = UA Nitrite) PM) [facility] AND [id number] 18:46:00 Test Item Value Reference Range Interpretation Comments UA Blood (test code = Negative (07/22/14 1:46 UA Blood) PM) [facility] AND [id number] 18:46:00 Test Item Value Reference Range Interpretation Comments UA Ketones (test code = UA Negative mg/dL Ketones) [facility] AND [id number] 18:46:00 Test Item Value Reference Range Interpretation Comments UA Bili (test code = Negative *NA*(07/22/14 UA Bili) 1:46 PM) [facility] AND [id number] 18:46:00 Test Item Value Reference Range Interpretation Comments UA Bacteria (test code = UA Occasional /HPF Bacteria) [facility] AND [id number] 18:46:00 Test Item Value Reference Range Interpretation Comments UA RBC (test code = no gt See_Comment [Automa elizabeth message] The UA RBC) system which ge nerated this result transmit elizabeth reference range : <=2. The reference range was not used to interpr et this result as margaret l/abnormal. [facility] AND [id number] 18:46:00 Test Item Value Reference Range Interpretation Comments UA WBC (test code = 1 See_Comment [Automa elizabeth message] The UA WBC) system which ge nerated this result transmit elizabeth reference range : <=5. The reference range was not used to interpr et this result as margaret l/abnormal. [facility] AND [id number] 18:46:00 Test Item Value Reference Range Interpretation Comments UA Glucose (test code = UA Glucose) 30 mg/dL [facility] AND [id number] 18:46:00 Test Item Value Reference Range Interpretation Comments UA Protein (test code = UA Negative mg/dL Protein) [facility] AND [id number] 18:46:00 Test Item Value Reference Range Interpretation Comments UA pH (test code = UA pH) 6.5 5.0-8.0 [facility] AND [id number] 18:46:00 Test Item Value Reference Range Interpretation Comments UA Turbidity (test code = Clear (07/22/14 1:46 UA Turbidity) PM) [facility] AND [id number] 18:46:00 Test Item Value Reference Range Interpretation Comments UA Spec Grav (test code = UA Spec Grav) 1.010 [facility] AND [id number] 18:46:00 Test Item Value Reference Range Interpretation Comments UA Color (test code = Light Yellow UA Color) *NA*(07/22/14 1:46 PM) [facility] [id number] 18:46:00 Test Item Value Reference Range Interpretation Comments Magnesium Lvl (test code = Magnesium 1.8 1.8-2.4 Lvl) [facility]XenrzbjQOKLUKPDXBPQ3617-97-16 18:46:00 Test Item Value Reference Range Interpretation Comments AGAP (test code = AGAP) 13.2 10.0-20.0 [facility] HospitalWlzrmhpIJEJAFABYPHX2025-95-78 18:46:00 Test Item Value Reference Range Interpretation Comments B/C Ratio (test code = B/C Ratio) 18 6-25 [facility] HospitalXzqyfcjARGKAGRGBAPD4381-25-65 18:46:00 Test Item Value Reference Range Interpretation Comments A/G Ratio (test code = A/G Ratio) 1.1 0.7-1.6 [facility] HospitalOxhfgxaGGUINMKLDJYV9222-28-18 18:46:00 Test Item Value Reference Range Interpretation Comments Globulin (test code = Globulin) 3.3 2.0-4.0 [facility] HospitalTykdflbHIOCIFJIKSHM3083-03-44 18:46:00 Test Item Value Reference Range Interpretation Comments eGFR (test code = eGFR) 99 [facility] HospitalFmpniudLYIYOLNMQURR9964-25-32 18:46:00 Test Item Value Reference Range Interpretation Comments Calcium Lvl (test code = Calcium Lvl) 9.0 8.5-10.5 [facility] HospitalYdogxxcDMEZGNSDCEJT4285-13-26 18:46:00 Test Item Value Reference Range Interpretation Comments Chloride Lvl (test code = Chloride Lvl) 106 95-109 [facility] HospitalYtwaqqyNPUTOYILACQJ8731-58-03 18:46:00 Test Item Value Reference Range Interpretation Comments Creatinine Lvl (test code = Creatinine 0.9 0.5-1.4 Lvl) [facility] HospitalDbomwidBVCFHHITQCMZ4345-46-15 18:46:00 Test Item Value Reference Range Interpretation Comments Potassium Lvl (test code = Potassium 4.2 3.5-5.1 Lvl) [facility] HospitalAkwmztbYJCKYQPPXSDM3393-50-71 18:46:00 Test Item Value Reference Range Interpretation Comments Sodium Lvl (test code = Sodium Lvl) 139 135-145 [facility] HospitalGfgdgpvRZWCQYMFTRWB6253-05-59 18:46:00 Test Item Value Reference Range Interpretation Comments CO2 (test code = CO2) 24 24-32 [facility] HospitalVbbhaczZJFXDWCFIEGX9815-73-33 18:46:00 Test Item Value Reference Range Interpretation Comments BUN (test code = BUN) 16 7-22 [facility] HospitalHmuryxrSWGWGRLUSZVK1513-63-65 18:46:00 Test Item Value Reference Range Interpretation Comments Glucose Lvl (test code = Glucose Lvl) 141 70-99 [facility] HospitalGjdxdnhBWZXZVEPZDDP4824-47-90 18:46:00 Test Item Value Reference Range Interpretation Comments Albumin Lvl (test code = Albumin Lvl) 3.6 3.5-5.0 [facility] HospitalDyksrprGLGNBYBQJVNU2435-57-41 18:46:00 Test Item Value Reference Range Interpretation Comments Alk Phos (test code = Alk Phos) 65 39-136 [facility] HospitalMcyjibaDZRQYQWRNPND6132-98-21 18:46:00 Test Item Value Reference Range Interpretation Comments Bili Total (test code = Bili Total) 0.3 0.2-1.3 [facility] HospitalMrvxucbJEECUQYYGECG8530-53-03 18:46:00 Test Item Value Reference Range Interpretation Comments ALT (test code = ALT) 100 See_Comment [Auto mated message] The system which ge nerated this result transmit elizabeth reference range : <=65. The reference range was not used to interpr et this result as margaret l/abnormal. [facility] HospitalXyxvkhzDCPYUBKYAMGS7154-12-62 18:46:00 Test Item Value Reference Range Interpretation Comments AST (test code = AST) 53 See_Comment [Auto mated message] The system which ge nerated this result transmit elizabeth reference range : <=37. The reference range was not used to interpr et this result as margaret l/abnormal. [facility] HospitalQdacrkaRTGJGGCEVIMH3796-62-50 18:46:00 Test Item Value Reference Range Interpretation Comments Total Protein (test code = Total 6.9 6.4-8.4 Protein) [facility] CenterBiaemruAXEAGVJVTI6360-32-14 18:46:00 Test Item Value Reference Range Interpretation Comments Eosinophils (test code = 4.2 See_Comment [A utomated message] The Eosinophils) system which ge nerated this result tra nsmitted reference range : <=4.0. The reference r mitra was not used to int erpret this result as normal/abnormal . [facility] CenterGihcdlxFRXOENRBDX6312-84-27 18:46:00 Test Item Value Reference Range Interpretation Comments Segs (test code = Segs) 56.4 45.0-75.0 [facility] CenterGdyvkwcZNISNGWKQA0141-44-36 18:46:00 Test Item Value Reference Range Interpretation Comments Monocytes (test code = Monocytes) 10.3 2.0-12.0 [facility] CenterQrohsupCLJOSTWIQZ4237-97-53 18:46:00 Test Item Value Reference Range Interpretation Comments Lymphocytes (test code = Lymphocytes) 28.0 20.0-40.0 [facility] CenterRyoqtvyVUDJSZOHLB3157-27-44 18:46:00 Test Item Value Reference Range Interpretation Comments Monocytes # (test code 0.5 See_Comment [Aut omated message] The = Monocytes #) system which generated this result tra nsmitted reference range : <=0.8. The reference r mitra was not used to int erpret this result as normal/abnormal . [facility] CenterHhqvwsjWDWUGQAGOZ5183-83-71 18:46:00 Test Item Value Reference Range Interpretation Comments Basophils (test code = 1.1 See_Comment [Aut omated message] The Basophils) system which ge nerated this result tra nsmitted reference range : <=1.0. The reference r mitra was not used to int erpret this result as normal/abnormal . [facility] CenterUfleuxzFHDHCZLZRI7649-80-09 18:46:00 Test Item Value Reference Range Interpretation Comments Lymphocytes # (test code = Lymphocytes 1.5 1.0-5.5 #) [facility] CenterVlhiuboPHWDFPFMHI4790-02-79 18:46:00 Test Item Value Reference Range Interpretation Comments Segs-Bands # (test code = Segs-Bands #) 2.9 1.5-8.1 [facility] CenterJgpvidkLVAWDVARXZ7464-63-44 18:46:00 Test Item Value Reference Range Interpretation Comments Eosinophils # (test code 0.2 See_Comment [A utomated message] The = Eosinophils #) system whic h generated this result tra nsmitted reference range : <=0.5. The reference r mitra was not used to int erpret this result as normal/abnormal . [facility] CenterYsrtwttHTGAHHDQPM8505-90-80 18:46:00 Test Item Value Reference Range Interpretation Comments Basophils # (test code 0.1 See_Comment [Aut omated message] The = Basophils #) system which generated this result tra nsmitted reference range : <=0.2. The reference r mitra was not used to int erpret this result as normal/abnormal . [facility] CenterJnazlmaMLOKTBSCSD4993-48-86 18:46:00 Test Item Value Reference Range Interpretation Comments PT (test code = PT) 11.2 s 12.0-14.7 [facility] CenterRuoumqpKXUVALPMVY5181-71-07 18:46:00 Test Item Value Reference Range Interpretation Comments INR (test code = INR) 0.82 0.85-1.17 [facility] CenterBwtnwytZPEVFCXPLN2556-03-91 18:46:00 Test Item Value Reference Range Interpretation Comments PTT (test code = PTT) 28.6 s 22.9-35.8 [facility] CenterGlurqgeGOCMULUIVX2382-81-70 18:46:00 Test Item Value Reference Range Interpretation Comments MPV (test code = MPV) 8.1 7.4-10.4 [facility] CenterHgrcvtaSVWIQFCTLT4002-08-69 18:46:00 Test Item Value Reference Range Interpretation Comments Platelet (test code = Platelet) 301 133-450 [facility]StswubwGKCNUQWYNA1919-59-42 18:46:00 Test Item Value Reference Range Interpretation Comments RDW (test code = RDW) 14.5 11.5-14.5 [facility] HospitalJoknzyoBLLPMUUSCD8901-78-52 18:46:00 Test Item Value Reference Range Interpretation Comments RBC (test code = RBC) 4.84 4.70-6.10 [facility] HospitalBwjrkuzYHCPXEQSCB2459-90-46 18:46:00 Test Item Value Reference Range Interpretation Comments Hgb (test code = Hgb) 14.4 14.0-18.0 [facility] HospitalZpxlmelOKMFTGPBZZ4396-81-66 18:46:00 Test Item Value Reference Range Interpretation Comments WBC (test code = WBC) 5.2 3.7-10.4 [facility] CenterOqwecfiCCFABODNDM4680-13-03 18:46:00 Test Item Value Reference Range Interpretation Comments MCH (test code = MCH) 29.8 pg 27.0-31.0 [facility] CenterNnvustdAXBNCBYWQO9474-68-41 18:46:00 Test Item Value Reference Range Interpretation Comments MCV (test code = MCV) 92.0 80.0-94.0 [facility]FhjstonCOXZLROIFQ1267-42-18 18:46:00 Test Item Value Reference Range Interpretation Comments Hct (test code = Hct) 44.5 42.0-54.0 [facility] HospitalHvubuinYFUQRXINPL2753-83-51 18:46:00 Test Item Value Reference Range Interpretation Comments MCHC (test code = MCHC) 32.4 32.0-36.0 [facility]VqfnlgtMANDWOXQKB3076-09-83 18:46:00 Test Item Value Reference Range Interpretation Comments [place]Hep C Ab (test Negative *NA*(07/22/14 code = [place]-Hep C 1:46 PM) Ab) [facility] AND [id number] 18:46:00 Test Item Value Reference Range Interpretation Comments UA Urobilinogen (test code = UA <=1.0 mg/dL 0.1-1.0 Urobilinogen) [facility] [id number] 18:46:00 Test Item Value Reference Range Interpretation Comments UA Sq Epi (test code = UA Sq Epi) None [facility] [id number] 18:46:00 Test Item Value Reference Range Interpretation Comments UA Leuk Est (test Negative (07/22/14 1:46 code = UA Leuk Est) PM) [facility] AND [id number] 18:46:00 Test Item Value Reference Range Interpretation Comments UA Nitrite (test code Negative (07/22/14 1:46 = UA Nitrite) PM) [facility] AND [id number] 18:46:00 Test Item Value Reference Range Interpretation Comments UA Blood (test code = Negative (07/22/14 1:46 UA Blood) PM) [facility] AND [id number] 18:46:00 Test Item Value Reference Range Interpretation Comments UA Ketones (test code = UA Negative mg/dL Ketones) [facility] AND [id number] 18:46:00 Test Item Value Reference Range Interpretation Comments UA Bili (test code = Negative *NA*(07/22/14 UA Bili) 1:46 PM) [facility] AND [id number] 18:46:00 Test Item Value Reference Range Interpretation Comments UA Bacteria (test code = UA Occasional /HPF Bacteria) [facility] AND [id number] 18:46:00 Test Item Value Reference Range Interpretation Comments UA RBC (test code = no gt See_Comment [Automa elizabeth message] The UA RBC) system which ge nerated this result transmit elizabeth reference range : <=2. The reference range was not used to interpr et this result as margaret l/abnormal. [facility] AND [id number] 18:46:00 Test Item Value Reference Range Interpretation Comments UA WBC (test code = 1 See_Comment [Automa elizabeth message] The UA WBC) system which ge nerated this result transmit elizabeth reference range : <=5. The reference range was not used to interpr et this result as margaret l/abnormal. [facility] AND [id number] 18:46:00 Test Item Value Reference Range Interpretation Comments UA Glucose (test code = UA Glucose) 30 mg/dL [facility] AND [id number] 18:46:00 Test Item Value Reference Range Interpretation Comments UA Protein (test code = UA Negative mg/dL Protein) [facility] AND [id number] 18:46:00 Test Item Value Reference Range Interpretation Comments UA pH (test code = UA pH) 6.5 5.0-8.0 [facility] [id number] 18:46:00 Test Item Value Reference Range Interpretation Comments UA Turbidity (test code = Clear (07/22/14 1:46 [facility]A Turbidity) PM) [facility] [id number] 18:46:00 Test Item Value Reference Range Interpretation Comments UA Spec Grav (test code = UA Spec Grav) 1.010 [facility] AND [id number] 18:46:00 Test Item Value Reference Range Interpretation Comments UA Color (test code = Light Yellow UA Color) *NA*(07/22/14 1:46 PM) [facility] [id number] 18:46:00 Test Item Value Reference Range Interpretation Comments Magnesium Lvl (test code = Magnesium 1.8 1.8-2.4 Lvl) [facility]ZsjkmcpVXXCDORZZBYL8965-39-39 18:46:00 Test Item Value Reference Range Interpretation Comments AGAP (test code = AGAP) 13.2 10.0-20.0 [facility] HospitalUrhrqztEUWSYJLHAFJS8344-37-23 18:46:00 Test Item Value Reference Range Interpretation Comments B/C Ratio (test code = B/C Ratio) 18 6-25 [facility] HospitalLjrvgyxIUKTPMCDWQRK9025-86-72 18:46:00 Test Item Value Reference Range Interpretation Comments A/G Ratio (test code = A/G Ratio) 1.1 0.7-1.6 [facility] HospitalHqlauofQMJCVCMNQMVN3652-27-16 18:46:00 Test Item Value Reference Range Interpretation Comments Globulin (test code = Globulin) 3.3 2.0-4.0 [facility] HospitalLgokrysTSLDOWOEYMCW1985-38-01 18:46:00 Test Item Value Reference Range Interpretation Comments eGFR (test code = eGFR) 99 [facility] HospitalImmvxrmWPQEDULHFEYF9537-99-54 18:46:00 Test Item Value Reference Range Interpretation Comments Calcium Lvl (test code = Calcium Lvl) 9.0 8.5-10.5 [facility] HospitalNkkulxkZVEBORTSTBJF2481-13-02 18:46:00 Test Item Value Reference Range Interpretation Comments Chloride Lvl (test code = Chloride Lvl) 106 95-109 [facility] HospitalSxuvskpUCSGBXQHPXAK2429-52-77 18:46:00 Test Item Value Reference Range Interpretation Comments Creatinine Lvl (test code = Creatinine 0.9 0.5-1.4 Lvl) [facility] HospitalMgftivvNWIVFXOGIIKP3420-80-62 18:46:00 Test Item Value Reference Range Interpretation Comments Potassium Lvl (test code = Potassium 4.2 3.5-5.1 Lvl) [facility] HospitalEezncpoWARPWBXQMYJO6010-35-03 18:46:00 Test Item Value Reference Range Interpretation Comments Sodium Lvl (test code = Sodium Lvl) 139 135-145 [facility] HospitalEuqtjzwBEGQIVRWXROZ6938-06-08 18:46:00 Test Item Value Reference Range Interpretation Comments CO2 (test code = CO2) 24 24-32 [facility] HospitalRpppknbHWFNTRMQIRWM5320-54-84 18:46:00 Test Item Value Reference Range Interpretation Comments BUN (test code = BUN) 16 7-22 [facility] HospitalEyttlwgFEVWXGMMUVJO6468-53-97 18:46:00 Test Item Value Reference Range Interpretation Comments Glucose Lvl (test code = Glucose Lvl) 141 70-99 [facility] HospitalAfmpsyqPLIPMNFQQRUA0469-40-02 18:46:00 Test Item Value Reference Range Interpretation Comments Albumin Lvl (test code = Albumin Lvl) 3.6 3.5-5.0 [facility] HospitalXfvdasxVMYUTKLAQFUT4009-98-66 18:46:00 Test Item Value Reference Range Interpretation Comments Alk Phos (test code = Alk Phos) 65 39-136 [facility] HospitalKdsuiqvREQPYYHPBHJH5442-45-56 18:46:00 Test Item Value Reference Range Interpretation Comments Bili Total (test code = Bili Total) 0.3 0.2-1.3 [facility] HospitalYzrgayjMEVXYBLELWPR1807-07-72 18:46:00 Test Item Value Reference Range Interpretation Comments ALT (test code = ALT) 100 See_Comment [Auto mated message] The system which ge nerated this result transmit elizabeth reference range : <=65. The reference range was not used to interpr et this result as margaret l/abnormal. [facility] HospitalGlbtoxvTNGVKIDNODJF1767-31-75 18:46:00 Test Item Value Reference Range Interpretation Comments AST (test code = AST) 53 See_Comment [Auto mated message] The system which ge nerated this result transmit elizabeth reference range : <=37. The reference range was not used to interpr et this result as margaret l/abnormal. [facility] HospitalPanzrhxDKQVVOJKNSUP6309-06-49 18:46:00 Test Item Value Reference Range Interpretation Comments Total Protein (test code = Total 6.9 6.4-8.4 Protein) [facility] CenterUmsdmzqIWPDIOUWRD0699-18-99 18:46:00 Test Item Value Reference Range Interpretation Comments Eosinophils (test code = 4.2 See_Comment [A utomated message] The Eosinophils) system which ge nerated this result tra nsmitted reference range : <=4.0. The reference r mitra was not used to int erpret this result as normal/abnormal . [facility] CenterXdoqfkiRGDESRZGBW5912-33-10 18:46:00 Test Item Value Reference Range Interpretation Comments Segs (test code = Segs) 56.4 45.0-75.0 [facility] CenterLcvasczQUYHEWKYHB2047-24-55 18:46:00 Test Item Value Reference Range Interpretation Comments Monocytes (test code = Monocytes) 10.3 2.0-12.0 [facility] CenterWxputqxTPLIIMENFC2083-72-93 18:46:00 Test Item Value Reference Range Interpretation Comments Lymphocytes (test code = Lymphocytes) 28.0 20.0-40.0 [facility] CenterAsyfisbEEPMYAWAYJ2948-14-84 18:46:00 Test Item Value Reference Range Interpretation Comments Monocytes # (test code 0.5 See_Comment [Aut omated message] The = Monocytes #) system which generated this result tra nsmitted reference range : <=0.8. The reference r mitra was not used to int erpret this result as normal/abnormal . [facility] CenterInpxdmgNUJYVXLAKG5356-57-81 18:46:00 Test Item Value Reference Range Interpretation Comments Basophils (test code = 1.1 See_Comment [Aut omated message] The Basophils) system which ge nerated this result tra nsmitted reference range : <=1.0. The reference r mitra was not used to int erpret this result as normal/abnormal . [facility] CenterOxweysaHLWYFDRZYK5100-80-18 18:46:00 Test Item Value Reference Range Interpretation Comments Lymphocytes # (test code = Lymphocytes 1.5 1.0-5.5 #) [facility] CenterZgeqzmuQQWMYVILIX6093-49-71 18:46:00 Test Item Value Reference Range Interpretation Comments Segs-Bands # (test code = Segs-Bands #) 2.9 1.5-8.1 [facility] CenterJbhrryqQJBEUUKTKA1262-74-01 18:46:00 Test Item Value Reference Range Interpretation Comments Eosinophils # (test code 0.2 See_Comment [A utomated message] The = Eosinophils #) system whic h generated this result tra nsmitted reference range : <=0.5. The reference r mitra was not used to int erpret this result as normal/abnormal . [facility] CenterVlrlybgWGRSHOLAWR3930-41-46 18:46:00 Test Item Value Reference Range Interpretation Comments Basophils # (test code 0.1 See_Comment [Aut omated message] The = Basophils #) system which generated this result tra nsmitted reference range : <=0.2. The reference r mitra was not used to int erpret this result as normal/abnormal . [facility] CenterXbvexagHXZNDFDUPX6958-76-71 18:46:00 Test Item Value Reference Range Interpretation Comments PT (test code = PT) 11.2 s 12.0-14.7 [facility] CenterHqfdufnLDBVASLQHY5157-77-30 18:46:00 Test Item Value Reference Range Interpretation Comments INR (test code = INR) 0.82 0.85-1.17 [facility]TldxzfbNOKTWDLXYJ8885-75-57 18:46:00 Test Item Value Reference Range Interpretation Comments PTT (test code = PTT) 28.6 s 22.9-35.8 [facility] CenterJrdalqfIUHSLRVHAJ2776-77-77 18:46:00 Test Item Value Reference Range Interpretation Comments MPV (test code = MPV) 8.1 7.4-10.4 [facility] CenterEmwqfmeEXUEWJGYQX6570-17-03 18:46:00 Test Item Value Reference Range Interpretation Comments Platelet (test code = Platelet) 301 133-450 [facility] CenterYojtjraLTJOWZCDZP4403-43-97 18:46:00 Test Item Value Reference Range Interpretation Comments RDW (test code = RDW) 14.5 11.5-14.5 [facility] CenterUbjbobrIBULFKLBJB2522-11-17 18:46:00 Test Item Value Reference Range Interpretation Comments RBC (test code = RBC) 4.84 4.70-6.10 [facility] CenterVluckcnQRFDAWAYPR4267-95-31 18:46:00 Test Item Value Reference Range Interpretation Comments Hgb (test code = Hgb) 14.4 14.0-18.0 [facility] CenterExfowcfTMWGRHMCRS2224-82-32 18:46:00 Test Item Value Reference Range Interpretation Comments WBC (test code = WBC) 5.2 3.7-10.4 [facility] HcazvxwMXFFUGQJIX6294-00-19 18:46:00 Test Item Value Reference Range Interpretation Comments MCH (test code = MCH) 29.8 pg 27.0-31.0 [facility] AlwgikuWVGSXTPNSR7889-23-99 18:46:00 Test Item Value Reference Range Interpretation Comments MCV (test code = MCV) 92.0 80.0-94.0 [facility] CcebsbdQXVKONWDGM2395-04-09 18:46:00 Test Item Value Reference Range Interpretation Comments Hct (test code = Hct) 44.5 42.0-54.0 [facility] SxcqnbrLDWGCIDFYA1540-25-13 18:46:00 Test Item Value Reference Range Interpretation Comments MCHC (test code = MCHC) 32.4 32.0-36.0 [facility]dt[facility]qiaIGTSJKCNQD2821-42-45 18:46:00 Test Item Value Reference Range Interpretation Comments [place]-Hep C Ab (test Negative *NA*(07/22/14 code = [place]-Hep C 1:46 PM) Ab) [facility] AND [id number] 18:46:00 Test Item Value Reference Range Interpretation Comments UA Urobilinogen (test code = UA <=1.0 mg/dL 0.1-1.0 Urobilinogen) [facility] AND [id number] 18:46:00 Test Item Value Reference Range Interpretation Comments UA Sq Epi (test code = UA Sq Epi) None Seen [facility] AND [id number] 18:46:00 Test Item Value Reference Range Interpretation Comments UA Leuk Est (test Negative (07/22/14 1:46 code = UA Leuk Est) PM) [facility] AND [id number] 18:46:00 Test Item Value Reference Range Interpretation Comments UA Nitrite (test code Negative (07/22/14 1:46 = UA Nitrite) PM) [facility] AND [id number] 18:46:00 Test Item Value Reference Range Interpretation Comments UA Blood (test code = Negative (07/22/14 1:46 UA Blood) PM) [facility] AND [id number] 18:46:00 Test Item Value Reference Range Interpretation Comments UA Ketones (test code = UA Negative mg/dL Ketones) [facility] AND [id number] 18:46:00 Test Item Value Reference Range Interpretation Comments UA Bili (test code = Negative *NA*(07/22/14 UA Bili) 1:46 PM) [facility] AND [id number] 18:46:00 Test Item Value Reference Range Interpretation Comments UA Bacteria (test code = UA Occasional /HPF Bacteria) [facility] AND [id number] 18:46:00 Test Item Value Reference Range Interpretation Comments UA RBC (test code = no gt See_Comment [Automa elizabeth message] The UA RBC) system which ge nerated this result transmit elizabeth reference range : <=2. The reference range was not used to interpr et this result as margaret l/abnormal. [facility] AND [id number] 18:46:00 Test Item Value Reference Range Interpretation Comments UA WBC (test code = 1 See_Comment [Automa elizabeth message] The UA WBC) system which ge nerated this result transmit elizabeth reference range : <=5. The reference range was not used to interpr et this result as margaret l/abnormal. [facility] AND [id number] 18:46:00 Test Item Value Reference Range Interpretation Comments UA Glucose (test code = UA Glucose) 30 mg/dL [facility] AND [id number] 18:46:00 Test Item Value Reference Range Interpretation Comments UA Protein (test code = UA Negative mg/dL Protein) [facility] AND [id number] 18:46:00 Test Item Value Reference Range Interpretation Comments UA pH (test code = UA pH) 6.5 5.0-8.0 [facility] AND [id number] 18:46:00 Test Item Value Reference Range Interpretation Comments UA Turbidity (test code = Clear (07/22/14 1:46 UA Turbidity) PM) [facility] AND [id number] 18:46:00 Test Item Value Reference Range Interpretation Comments UA Spec Grav (test code = UA Spec Grav) 1.010 [facility] AND [id number] 18:46:00 Test Item Value Reference Range Interpretation Comments UA Color (test code = Light Yellow UA Color) *NA*(07/22/14 1:46 PM) [facility]2015-06-09 18:46:00 Test Item Value Reference Range Interpretation Comments Magnesium Lvl (test code = Magnesium 1.8 1.8-2.4 Lvl) [facility]NgzbxxnBUBBWUPQCDQK9496-59-65 18:46:00 Test Item Value Reference Range Interpretation Comments AGAP (test code = AGAP) 13.2 10.0-20.0 [facility] HospitalBhadajmGUJYPUTKQNCE5965-29-35 18:46:00 Test Item Value Reference Range Interpretation Comments B/C Ratio (test code = B/C Ratio) 18 6-25 [facility] HospitalMpcsirkSFVALUJCOJJC1958-05-37 18:46:00 Test Item Value Reference Range Interpretation Comments A/G Ratio (test code = A/G Ratio) 1.1 0.7-1.6 [facility] HospitalMdlstypNTHHMBJVJZBR8180-15-01 18:46:00 Test Item Value Reference Range Interpretation Comments Globulin (test code = Globulin) 3.3 2.0-4.0 [facility] HospitalXpjszwvOJEOZBHZHZRS7302-11-71 18:46:00 Test Item Value Reference Range Interpretation Comments eGFR (test code = eGFR) 99 [facility] HospitalFgsftfkTSDEZQEMTTBS7966-80-19 18:46:00 Test Item Value Reference Range Interpretation Comments Calcium Lvl (test code = Calcium Lvl) 9.0 8.5-10.5 [facility] HospitalRjvniegBYENJGZYKBVB4463-43-62 18:46:00 Test Item Value Reference Range Interpretation Comments Chloride Lvl (test code = Chloride Lvl) 106 95-109 [facility] HospitalWuzapnePMZXHHYVWWVK1712-50-46 18:46:00 Test Item Value Reference Range Interpretation Comments Creatinine Lvl (test code = Creatinine 0.9 0.5-1.4 Lvl) [facility] HospitalCvumkduHVRJAPTGKIRU1866-37-75 18:46:00 Test Item Value Reference Range Interpretation Comments Potassium Lvl (test code = Potassium 4.2 3.5-5.1 Lvl) [facility] HospitalHnxzaylRJUJEGSMEYSN0017-34-45 18:46:00 Test Item Value Reference Range Interpretation Comments Sodium Lvl (test code = Sodium Lvl) 139 135-145 [facility] HospitalKlpxruiBABCVZYHZPZU0722-69-24 18:46:00 Test Item Value Reference Range Interpretation Comments CO2 (test code = CO2) 24 24-32 [facility] HospitalXzlikoeROSMTARGPEWG4531-27-19 18:46:00 Test Item Value Reference Range Interpretation Comments BUN (test code = BUN) 16 7-22 [facility] HospitalAepzvrrMKHNPIUNBGXR0414-28-63 18:46:00 Test Item Value Reference Range Interpretation Comments Glucose Lvl (test code = Glucose Lvl) 141 70-99 [facility] HospitalDhbnlnwSURIXYYCTXBV1746-77-15 18:46:00 Test Item Value Reference Range Interpretation Comments Albumin Lvl (test code = Albumin Lvl) 3.6 3.5-5.0 [facility] HospitalEotsdqxEWLZROGWIOWM1555-44-29 18:46:00 Test Item Value Reference Range Interpretation Comments Alk Phos (test code = Alk Phos) 65 39-136 [facility] HospitalHxwbjecRAABIEMLZFZT2970-83-64 18:46:00 Test Item Value Reference Range Interpretation Comments Bili Total (test code = Bili Total) 0.3 0.2-1.3 [facility] HospitalMbulghkRWSMLLMMXNQN9482-63-08 18:46:00 Test Item Value Reference Range Interpretation Comments ALT (test code = ALT) 100 See_Comment [Auto mated message] The system which ge nerated this result transmit elizabeth reference range : <=65. The reference range was not used to interpr et this result as margaret l/abnormal. [facility] HospitalPjndpsuAYYKJSZRLKXL7122-27-95 18:46:00 Test Item Value Reference Range Interpretation Comments AST (test code = AST) 53 See_Comment [Auto mated message] The system which ge nerated this result transmit elizabeth reference range : <=37. The reference range was not used to interpr et this result as margaret l/abnormal. [facility] HospitalQjmzmqyUGTUITYVFCUK4480-93-43 18:46:00 Test Item Value Reference Range Interpretation Comments Total Protein (test code = Total 6.9 6.4-8.4 Protein) [facility] CenterDmqhaowOWNXPTCZBD1930-07-40 18:46:00 Test Item Value Reference Range Interpretation Comments Eosinophils (test code = 4.2 See_Comment [A utomated message] The Eosinophils) system which ge nerated this result tra nsmitted reference range : <=4.0. The reference r mitra was not used to int erpret this result as normal/abnormal . [facility] CenterBolmpmxTBDFKIKHXQ0834-84-98 18:46:00 Test Item Value Reference Range Interpretation Comments Segs (test code = Segs) 56.4 45.0-75.0 [facility] CenterBkjfaxlOWBVMUPUIE0797-89-04 18:46:00 Test Item Value Reference Range Interpretation Comments Monocytes (test code = Monocytes) 10.3 2.0-12.0 [facility] CenterDmbkmjaOTVLPQTHIY8180-81-78 18:46:00 Test Item Value Reference Range Interpretation Comments Lymphocytes (test code = Lymphocytes) 28.0 20.0-40.0 [facility] CenterHjsmgayHKRJYGDFVU6912-53-04 18:46:00 Test Item Value Reference Range Interpretation Comments Monocytes # (test code 0.5 See_Comment [Aut omated message] The = Monocytes #) system which generated this result tra nsmitted reference range : <=0.8. The reference r mitra was not used to int erpret this result as normal/abnormal . [facility] CenterMyeyraaCDVZMJMCLJ2573-69-13 18:46:00 Test Item Value Reference Range Interpretation Comments Basophils (test code = 1.1 See_Comment [Aut omated message] The Basophils) system which ge nerated this result tra nsmitted reference range : <=1.0. The reference r mitra was not used to int erpret this result as normal/abnormal . [facility] CenterQzuczfgGZVESJQRAW7048-55-21 18:46:00 Test Item Value Reference Range Interpretation Comments Lymphocytes # (test code = Lymphocytes 1.5 1.0-5.5 #) [facility] CenterTkxatgxKZYUKIRFYH8742-05-57 18:46:00 Test Item Value Reference Range Interpretation Comments Segs-Bands # (test code = Segs-Bands #) 2.9 1.5-8.1 [facility] CenterBvdnpcmZGLGAONVGY3687-17-07 18:46:00 Test Item Value Reference Range Interpretation Comments Eosinophils # (test code 0.2 See_Comment [A utomated message] The = Eosinophils #) system whic h generated this result tra nsmitted reference range : <=0.5. The reference r mitra was not used to int erpret this result as normal/abnormal . [facility] CenterWyxsndmUVTGUYRIKD0083-50-18 18:46:00 Test Item Value Reference Range Interpretation Comments Basophils # (test code 0.1 See_Comment [Aut omated message] The = Basophils #) system which generated this result tra nsmitted reference range : <=0.2. The reference r imtra was not used to int erpret this result as normal/abnormal . [facility] CenterCqskurqCKEXOQELUG1642-86-54 18:46:00 Test Item Value Reference Range Interpretation Comments PT (test code = PT) 11.2 s 12.0-14.7 [place] 512545-06-09 18:46:00 Test Item Value Reference Range Interpretation Comments INR (test code = INR) 0.82 0.85-1.17 [facility] CenterTvegiyzAFDLSZQMXK9874-30-90 18:46:00 Test Item Value Reference Range Interpretation Comments PTT (test code = PTT) 28.6 s 22.9-35.8 [facility] CenterOpvqibuWSROVXCLHJ7192-41-86 18:46:00 Test Item Value Reference Range Interpretation Comments MPV (test code = MPV) 8.1 7.4-10.4 [place] 512545-06-09 18:46:00 Test Item Value Reference Range Interpretation Comments Platelet (test code = Platelet) 301 133-450 [facility] CenterGccouehQAZSASIZJO3720-87-11 18:46:00 Test Item Value Reference Range Interpretation Comments RDW (test code = RDW) 14.5 11.5-14.5 [facility] CenterTofgictFXGWFECQHR4638-74-61 18:46:00 Test Item Value Reference Range Interpretation Comments RBC (test code = RBC) 4.84 4.70-6.10 [facility] CenterOoiognqTFNLZPTINM6808-68-90 18:46:00 Test Item Value Reference Range Interpretation Comments Hgb (test code = Hgb) 14.4 14.0-18.0 [facility] CenterWbwpqkuVCBGJKMHZI8663-30-29 18:46:00 Test Item Value Reference Range Interpretation Comments WBC (test code = WBC) 5.2 3.7-10.4 [facility] CenterJvrvtdiWINPRSSASI6651-56-22 18:46:00 Test Item Value Reference Range Interpretation Comments MCH (test code = MCH) 29.8 pg 27.0-31.0 [facility] CenterPkizggbHVVQPBPCFC9046-11-03 18:46:00 Test Item Value Reference Range Interpretation Comments MCV (test code = MCV) 92.0 80.0-94.0 [place] 512545-06-09 18:46:00 Test Item Value Reference Range Interpretation Comments Hct (test code = Hct) 44.5 42.0-54.0 [facility]JvvcvloZMPSHOHKEP3173-47-99 18:46:00 Test Item Value Reference Range Interpretation Comments MCHC (test code = MCHC) 32.4 32.0-36.0 [facility]IcqtvbqORKUOMLMAA9819-32-20 18:46:00 Test Item Value Reference Range Interpretation Comments [place]Hep C Ab (test Negative *NA*(07/22/14 code = [place]Hep C 1:46 PM) Ab) [facility] AND [id number] 18:46:00 Test Item Value Reference Range Interpretation Comments UA Urobilinogen (test code = UA <=1.0 mg/dL 0.1-1.0 Urobilinogen) [facility] AND [id number] 18:46:00 Test Item Value Reference Range Interpretation Comments UA Sq Epi (test code = UA Sq Epi) None Seen [facility] AND [id number] 18:46:00 Test Item Value Reference Range Interpretation Comments UA Leuk Est (test Negative (07/22/14 1:46 code = UA Leuk Est) PM) [facility] AND [id number] 18:46:00 Test Item Value Reference Range Interpretation Comments UA Nitrite (test code Negative (07/22/14 1:46 = UA Nitrite) PM) [facility] AND [id number] 18:46:00 Test Item Value Reference Range Interpretation Comments UA Blood (test code = Negative (07/22/14 1:46 UA Blood) PM) [facility] AND [id number] 18:46:00 Test Item Value Reference Range Interpretation Comments UA Ketones (test code = UA Negative mg/dL Ketones) [facility] AND [id number] 18:46:00 Test Item Value Reference Range Interpretation Comments UA Bili (test code = Negative *NA*(07/22/14 UA Bili) 1:46 PM) [facility] AND [id number] 18:46:00 Test Item Value Reference Range Interpretation Comments UA Bacteria (test code = UA Occasional /HPF Bacteria) [facility] AND [id number] 18:46:00 Test Item Value Reference Range Interpretation Comments UA RBC (test code = no gt See_Comment [Automa elizabeth message] The UA RBC) system which ge nerated this result transmit elizabeth reference range : <=2. The reference range was not used to interpr et this result as margaret l/abnormal. [facility] AND [id number] 18:46:00 Test Item Value Reference Range Interpretation Comments UA WBC (test code = 1 See_Comment [Automa elizabeth message] The UA WBC) system which ge nerated this result transmit elizabeth reference range : <=5. The reference range was not used to interpr et this result as margaret l/abnormal. [facility] AND [id number] 18:46:00 Test Item Value Reference Range Interpretation Comments UA Glucose (test code = UA Glucose) 30 mg/dL [facility] AND [id number] 18:46:00 Test Item Value Reference Range Interpretation Comments UA Protein (test code = UA Negative mg/dL Protein) [facility] AND [id number] 18:46:00 Test Item Value Reference Range Interpretation Comments UA pH (test code = UA pH) 6.5 5.0-8.0 [facility] AND [id number] 18:46:00 Test Item Value Reference Range Interpretation Comments UA Turbidity (test code = Clear (07/22/14 1:46 UA Turbidity) PM) [facility] AND [id number] 18:46:00 Test Item Value Reference Range Interpretation Comments UA Spec Grav (test code = UA Spec Grav) 1.010 [facility] AND [id number] 18:46:00 Test Item Value Reference Range Interpretation Comments UA Color (test code = Light Yellow UA Color) *NA*(07/22/14 1:46 PM) [facility]annCHEM CEMXV8371-83-12 18:46:00 Test Item Value Reference Range Interpretation Comments Magnesium Lvl (test code = Magnesium 1.8 1.8-2.4 Lvl) [facility]BkbgtteKDMSEHNQNELB9417-53-31 18:46:00 Test Item Value Reference Range Interpretation Comments AGAP (test code = AGAP) 13.2 10.0-20.0 [facility] HospitalLuumhawDHDDKLJYFJVK2935-02-71 18:46:00 Test Item Value Reference Range Interpretation Comments B/C Ratio (test code = B/C Ratio) 18 6-25 [facility] HospitalEgliowvTHJIMCHFZWSE2634-46-32 18:46:00 Test Item Value Reference Range Interpretation Comments A/G Ratio (test code = A/G Ratio) 1.1 0.7-1.6 [facility] HospitalGjqyudeDNHALIARIMUW3025-54-67 18:46:00 Test Item Value Reference Range Interpretation Comments Globulin (test code = Globulin) 3.3 2.0-4.0 [facility] HospitalCtdzqosQZLAENGRIZFY2916-85-19 18:46:00 Test Item Value Reference Range Interpretation Comments eGFR (test code = eGFR) 99 [facility] HospitalRghnhrkNAAQCJYZYECS5797-63-49 18:46:00 Test Item Value Reference Range Interpretation Comments Calcium Lvl (test code = Calcium Lvl) 9.0 8.5-10.5 [facility] HospitalNjspbpyHELRPIIFENBI0038-14-65 18:46:00 Test Item Value Reference Range Interpretation Comments Chloride Lvl (test code = Chloride Lvl) 106 95-109 [facility] HospitalLusxozpZJZHUKUIYBAH5664-47-84 18:46:00 Test Item Value Reference Range Interpretation Comments Creatinine Lvl (test code = Creatinine 0.9 0.5-1.4 Lvl) [facility] HospitalEglgoznLFLKVQTOOEQI4919-52-66 18:46:00 Test Item Value Reference Range Interpretation Comments Potassium Lvl (test code = Potassium 4.2 3.5-5.1 Lvl) [facility] HospitalGidiwryEKAOUBLFYPKX7046-45-80 18:46:00 Test Item Value Reference Range Interpretation Comments Sodium Lvl (test code = Sodium Lvl) 139 135-145 [facility] HospitalXngkqdxBHSBLFSPKYSX5669-53-22 18:46:00 Test Item Value Reference Range Interpretation Comments CO2 (test code = CO2) 24 24-32 [facility] HospitalCdkhkogZYZPNQXCKKLK0514-11-22 18:46:00 Test Item Value Reference Range Interpretation Comments BUN (test code = BUN) 16 7-22 [facility] HospitalSfirhmcVXEZHNXUXOYI8027-83-21 18:46:00 Test Item Value Reference Range Interpretation Comments Glucose Lvl (test code = Glucose Lvl) 141 70-99 [facility] HospitalLizxiavTROKZGERRKNC2250-62-94 18:46:00 Test Item Value Reference Range Interpretation Comments Albumin Lvl (test code = Albumin Lvl) 3.6 3.5-5.0 [facility] HospitalYbeaqklWHCZOYONFKAI5505-77-52 18:46:00 Test Item Value Reference Range Interpretation Comments Alk Phos (test code = Alk Phos) 65 39-136 [facility] HospitalGonozieBTIHTOHQADEL8772-29-74 18:46:00 Test Item Value Reference Range Interpretation Comments Bili Total (test code = Bili Total) 0.3 0.2-1.3 [facility] HospitalRilmbuyKBEMYRRURNDL8025-76-15 18:46:00 Test Item Value Reference Range Interpretation Comments ALT (test code = ALT) 100 See_Comment [Auto mated message] The system which ge nerated this result transmit elizabeth reference range : <=65. The reference range was not used to interpr et this result as margaret l/abnormal. [facility] HospitalAcjsxumWEWJLTUGGWZY4821-75-43 18:46:00 Test Item Value Reference Range Interpretation Comments AST (test code = AST) 53 See_Comment [Auto mated message] The system which ge nerated this result transmit elizabeth reference range : <=37. The reference range was not used to interpr et this result as margaret l/abnormal. [facility] HospitalStnbiwmGGDNGJHQRRJP6771-61-86 18:46:00 Test Item Value Reference Range Interpretation Comments Total Protein (test code = Total 6.9 6.4-8.4 Protein) [facility] CenterMgmsfclUJYKHYHRGQ5902-47-59 18:46:00 Test Item Value Reference Range Interpretation Comments Eosinophils (test code = 4.2 See_Comment [A utomated message] The Eosinophils) system which ge nerated this result tra nsmitted reference range : <=4.0. The reference r mitra was not used to int erpret this result as normal/abnormal . [facility] CenterLznxjomBRXZUVDHZS7380-59-75 18:46:00 Test Item Value Reference Range Interpretation Comments Segs (test code = Segs) 56.4 45.0-75.0 [facility] CenterNptwshqHUHYCSKVPJ0524-77-56 18:46:00 Test Item Value Reference Range Interpretation Comments Monocytes (test code = Monocytes) 10.3 2.0-12.0 [facility] CenterKgbjquyCINEVFRGAE8218-72-34 18:46:00 Test Item Value Reference Range Interpretation Comments Lymphocytes (test code = Lymphocytes) 28.0 20.0-40.0 [facility] CenterFfhxlikYOSJGEJHPD0771-62-50 18:46:00 Test Item Value Reference Range Interpretation Comments Monocytes # (test code 0.5 See_Comment [Aut omated message] The = Monocytes #) system which generated this result tra nsmitted reference range : <=0.8. The reference r mitra was not used to int erpret this result as normal/abnormal . [facility] CenterEnkonelOELRRJLLTX7392-21-22 18:46:00 Test Item Value Reference Range Interpretation Comments Basophils (test code = 1.1 See_Comment [Aut omated message] The Basophils) system which ge nerated this result tra nsmitted reference range : <=1.0. The reference r mitra was not used to int erpret this result as normal/abnormal . [facility] CenterLgywbbmBCVBAQDOWE8941-84-37 18:46:00 Test Item Value Reference Range Interpretation Comments Lymphocytes # (test code = Lymphocytes 1.5 1.0-5.5 #) [facility] CenterCedjlwzYHJHYXYNMU8167-88-56 18:46:00 Test Item Value Reference Range Interpretation Comments Segs-Bands # (test code = Segs-Bands #) 2.9 1.5-8.1 [facility] CenterTdyfovtYOVIEHWBEQ5793-37-51 18:46:00 Test Item Value Reference Range Interpretation Comments Eosinophils # (test code 0.2 See_Comment [A utomated message] The = Eosinophils #) system whic h generated this result tra nsmitted reference range : <=0.5. The reference r mitra was not used to int erpret this result as normal/abnormal . [facility] CenterGumtvnxVGWABJWGAI7505-67-78 18:46:00 Test Item Value Reference Range Interpretation Comments Basophils # (test code 0.1 See_Comment [Aut omated message] The = Basophils #) system which generated this result tra nsmitted reference range : <=0.2. The reference r mitra was not used to int erpret this result as normal/abnormal . [facility] CenterVdarzrnYDAWTKLJZI6223-14-53 18:46:00 Test Item Value Reference Range Interpretation Comments PT (test code = PT) 11.2 s 12.0-14.7 [facility] CenterMavtismDOIUUFGABI0000-51-58 18:46:00 Test Item Value Reference Range Interpretation Comments INR (test code = INR) 0.82 0.85-1.17 [facility] CenterMqyckssEJPZWPSDXE0531-29-43 18:46:00 Test Item Value Reference Range Interpretation Comments PTT (test code = PTT) 28.6 s 22.9-35.8 [facility]FbitkghRDYHTXIOGF0886-48-26 18:46:00 Test Item Value Reference Range Interpretation Comments MPV (test code = MPV) 8.1 7.4-10.4 [facility]WllpybwNEYRWYXOSP7331-01-39 18:46:00 Test Item Value Reference Range Interpretation Comments Platelet (test code = Platelet) 301 133-450 [facility] HospitalEcjecscLRALHRIGOS8661-37-97 18:46:00 Test Item Value Reference Range Interpretation Comments RDW (test code = RDW) 14.5 11.5-14.5 [facility] HospitalMlktbpeRJTFFMAJNG0513-73-06 18:46:00 Test Item Value Reference Range Interpretation Comments RBC (test code = RBC) 4.84 4.70-6.10 [facility] HospitalXlbntscEYMOAULTGP3366-07-92 18:46:00 Test Item Value Reference Range Interpretation Comments Hgb (test code = Hgb) 14.4 14.0-18.0 [facility] HospitalPjxmpkvHYAUAFQQQL7338-08-43 18:46:00 Test Item Value Reference Range Interpretation Comments WBC (test code = WBC) 5.2 3.7-10.4 [facility]MieukzdKKOKHHBXIK7382-72-24 18:46:00 Test Item Value Reference Range Interpretation Comments MCH (test code = MCH) 29.8 pg 27.0-31.0 [id number] 18:46:00 Test Item Value Reference Range Interpretation Comments MCV (test code = MCV) 92.0 80.0-94.0 [facility]MrlwatqULJEZOZFYK4247-13-44 18:46:00 Test Item Value Reference Range Interpretation Comments Hct (test code = Hct) 44.5 42.0-54.0 [facility]UhmjxqpRENHFZLQZZ8313-90-31 18:46:00 Test Item Value Reference Range Interpretation Comments MCHC (test code = MCHC) 32.4 32.0-36.0 [facility]VwozqrcKKBGWYXNNI2925-50-01 18:46:00 Test Item Value Reference Range Interpretation Comments [place]-Hep C Ab (test Negative *NA*(07/22/14 code = [place]Hep C 1:46 PM) Ab) [facility] [id number] 18:46:00 Test Item Value Reference Range Interpretation Comments UA Urobilinogen (test code = UA <=1.0 mg/dL 0.1-1.0 Urobilinogen) [facility] AND [id number] 18:46:00 Test Item Value Reference Range Interpretation Comments UA Sq Epi (test code = UA Sq Epi) None Seen [facility] AND [id number] 18:46:00 Test Item Value Reference Range Interpretation Comments UA Leuk Est (test Negative (07/22/14 1:46 code = UA Leuk Est) PM) [facility] AND [id number] 18:46:00 Test Item Value Reference Range Interpretation Comments UA Nitrite (test code Negative (07/22/14 1:46 = UA Nitrite) PM) [facility] AND [id number] 18:46:00 Test Item Value Reference Range Interpretation Comments UA Blood (test code = Negative (07/22/14 1:46 UA Blood) PM) [facility] AND [id number] 18:46:00 Test Item Value Reference Range Interpretation Comments UA Ketones (test code = UA Negative mg/dL Ketones) [facility] AND [id number] 18:46:00 Test Item Value Reference Range Interpretation Comments UA Bili (test code = Negative *NA*(07/22/14 UA Bili) 1:46 PM) [facility] AND [id number] 18:46:00 Test Item Value Reference Range Interpretation Comments UA Bacteria (test code = UA Occasional /HPF Bacteria) [facility] AND [id number] 18:46:00 Test Item Value Reference Range Interpretation Comments UA RBC (test code = no gt See_Comment [Automa elizabeth message] The UA RBC) system which ge nerated this result transmit elizabeth reference range : <=2. The reference range was not used to interpr et this result as margaret l/abnormal. [facility] AND [id number] 18:46:00 Test Item Value Reference Range Interpretation Comments UA WBC (test code = 1 See_Comment [Automa elizabeth message] The UA WBC) system which ge nerated this result transmit elizabeth reference range : <=5. The reference range was not used to interpr et this result as margaret l/abnormal. [facility] AND [id number] 18:46:00 Test Item Value Reference Range Interpretation Comments UA Glucose (test code = UA Glucose) 30 mg/dL [facility] AND [id number] 18:46:00 Test Item Value Reference Range Interpretation Comments UA Protein (test code = UA Negative mg/dL Protein) [facility] AND [id number] 18:46:00 Test Item Value Reference Range Interpretation Comments UA pH (test code = UA pH) 6.5 5.0-8.0 [facility] AND [id number] 18:46:00 Test Item Value Reference Range Interpretation Comments UA Turbidity (test code = Clear (07/22/14 1:46 UA Turbidity) PM) [facility] AND [id number] 18:46:00 Test Item Value Reference Range Interpretation Comments UA Spec Grav (test code = UA Spec Grav) 1.010 [facility] AND [id number] 18:46:00 Test Item Value Reference Range Interpretation Comments UA Color (test code = Light Yellow UA Color) *NA*(07/22/14 1:46 PM) [facility] [id number] 18:46:00 Test Item Value Reference Range Interpretation Comments Magnesium Lvl (test code = Magnesium 1.8 1.8-2.4 Lvl) [facility][id number] 18:46:00 Test Item Value Reference Range Interpretation Comments AGAP (test code = AGAP) 13.2 10.0-20.0 [facility] HospitalPaybblrROCZPZKFUOBK3618-99-65 18:46:00 Test Item Value Reference Range Interpretation Comments B/C Ratio (test code = B/C Ratio) 18 6-25 [facility] HospitalBqlyantHYOYZKRYRFDQ5193-49-09 18:46:00 Test Item Value Reference Range Interpretation Comments A/G Ratio (test code = A/G Ratio) 1.1 0.7-1.6 [facility] HospitalVipcpmqTNZZFAWZSCXM6072-06-75 18:46:00 Test Item Value Reference Range Interpretation Comments Globulin (test code = Globulin) 3.3 2.0-4.0 [facility] HospitalNzqixzgCBYPSUWIOGSQ8845-17-67 18:46:00 Test Item Value Reference Range Interpretation Comments eGFR (test code = eGFR) 99 [facility] HospitalWrnoqyoWIACSBVCOBWI1940-95-90 18:46:00 Test Item Value Reference Range Interpretation Comments Calcium Lvl (test code = Calcium Lvl) 9.0 8.5-10.5 [facility] HospitalXpslxftMJALMESXWBJT4870-70-89 18:46:00 Test Item Value Reference Range Interpretation Comments Chloride Lvl (test code = Chloride Lvl) 106 95-109 [facility] HospitalSvmqnyxJYQUEEMCIFYK1920-28-54 18:46:00 Test Item Value Reference Range Interpretation Comments Creatinine Lvl (test code = Creatinine 0.9 0.5-1.4 Lvl) [facility] HospitalLtggoqzZMTVYXTWVQZO3098-19-10 18:46:00 Test Item Value Reference Range Interpretation Comments Potassium Lvl (test code = Potassium 4.2 3.5-5.1 Lvl) [facility] HospitalWzetchsUWQEOWMEDRVI2945-82-51 18:46:00 Test Item Value Reference Range Interpretation Comments Sodium Lvl (test code = Sodium Lvl) 139 135-145 [facility] HospitalVpelzikMWEQSTZUSUQN1773-69-98 18:46:00 Test Item Value Reference Range Interpretation Comments CO2 (test code = CO2) 24 24-32 [facility] HospitalUgkatyyDHZGUZAPPPOF7055-11-88 18:46:00 Test Item Value Reference Range Interpretation Comments BUN (test code = BUN) 16 7-22 [facility] HospitalXjepuzfCVZZIPRENXCY4386-05-05 18:46:00 Test Item Value Reference Range Interpretation Comments Glucose Lvl (test code = Glucose Lvl) 141 70-99 [facility] HospitalUqalidtRCIYPLLREICS2942-55-21 18:46:00 Test Item Value Reference Range Interpretation Comments Albumin Lvl (test code = Albumin Lvl) 3.6 3.5-5.0 [facility] HospitalXkldqpwZOGSRNJZTPRL8988-64-26 18:46:00 Test Item Value Reference Range Interpretation Comments Alk Phos (test code = Alk Phos) 65 39-136 [facility] HospitalOuunnemLLTMFBAEJRBI7962-71-97 18:46:00 Test Item Value Reference Range Interpretation Comments Bili Total (test code = Bili Total) 0.3 0.2-1.3 [facility] Hospital[id number] 18:46:00 Test Item Value Reference Range Interpretation Comments ALT (test code = ALT) 100 See_Comment [Auto mated message] The system which ge nerated this result transmit elizabeth reference range : <=65. The reference range was not used to interpr et this result as margaret l/abnormal. [facility] HospitalCggbfdzHJAECIEEKGNO9790-56-65 18:46:00 Test Item Value Reference Range Interpretation Comments AST (test code = AST) 53 See_Comment [Auto mated message] The system which ge nerated this result transmit elizabeth reference range : <=37. The reference range was not used to interpr et this result as margaret l/abnormal. [facility] HospitalZlrazrjEYIBTSZIKEMK0495-42-56 18:46:00 Test Item Value Reference Range Interpretation Comments Total Protein (test code = Total 6.9 6.4-8.4 Protein) [facility]XvuvvpvEKFYANPIPI2267-30-53 18:46:00 Test Item Value Reference Range Interpretation Comments Eosinophils (test code = 4.2 See_Comment [A utomated message] The Eosinophils) system which ge nerated this result tra nsmitted reference range : <=4.0. The reference r mitra was not used to int erpret this result as normal/abnormal . [facility] CenterWczonqtAUGJBSMFUG9021-29-14 18:46:00 Test Item Value Reference Range Interpretation Comments Segs (test code = Segs) 56.4 45.0-75.0 [facility] CenterXfipekvDTNSGLCDMH6724-31-82 18:46:00 Test Item Value Reference Range Interpretation Comments Monocytes (test code = Monocytes) 10.3 2.0-12.0 [facility] CenterXmcptxaGDZKSFVSXG7974-98-48 18:46:00 Test Item Value Reference Range Interpretation Comments Lymphocytes (test code = Lymphocytes) 28.0 20.0-40.0 [facility] CenterZvdgducFDEFMIYMYV0341-51-15 18:46:00 Test Item Value Reference Range Interpretation Comments Monocytes # (test code 0.5 See_Comment [Aut omated message] The = Monocytes #) system which generated this result tra nsmitted reference range : <=0.8. The reference r mitra was not used to int erpret this result as normal/abnormal . [facility] CenterEmfumpoZGWZDMZEFX6856-29-17 18:46:00 Test Item Value Reference Range Interpretation Comments Basophils (test code = 1.1 See_Comment [Aut omated message] The Basophils) system which ge nerated this result tra nsmitted reference range : <=1.0. The reference r mitra was not used to int erpret this result as normal/abnormal . [facility] CenterXchqlxqIXLPRTZIEI6091-51-15 18:46:00 Test Item Value Reference Range Interpretation Comments Lymphocytes # (test code = Lymphocytes 1.5 1.0-5.5 #) [facility] CenterMfasrxcHQLMOHMLZE4986-71-90 18:46:00 Test Item Value Reference Range Interpretation Comments Segs-Bands # (test code = Segs-Bands #) 2.9 1.5-8.1 [facility] CenterEidwanhMWBOSRNANV3325-67-67 18:46:00 Test Item Value Reference Range Interpretation Comments Eosinophils # (test code 0.2 See_Comment [A utomated message] The = Eosinophils #) system whic h generated this result tra nsmitted reference range : <=0.5. The reference r mitar was not used to int erpret this result as normal/abnormal . [facility] CenterLnkunwpBLJXAJEMSG1745-00-92 18:46:00 Test Item Value Reference Range Interpretation Comments Basophils # (test code 0.1 See_Comment [Aut omated message] The = Basophils #) system which generated this result tra nsmitted reference range : <=0.2. The reference r mitra was not used to int erpret this result as normal/abnormal . [facility] CenterCojqrhzLTAPJXPYQF4236-24-70 18:46:00 Test Item Value Reference Range Interpretation Comments PT (test code = PT) 11.2 s 12.0-14.7 [facility] CenterPmexsvsNOGQCMXBEL4842-19-25 18:46:00 Test Item Value Reference Range Interpretation Comments INR (test code = INR) 0.82 0.85-1.17 [facility] CenterBhqjrqnBCRQANHLOB5370-43-22 18:46:00 Test Item Value Reference Range Interpretation Comments PTT (test code = PTT) 28.6 s 22.9-35.8 [facility] CenterIjecqezHPLXPGTXIK0866-38-70 18:46:00 Test Item Value Reference Range Interpretation Comments MPV (test code = MPV) 8.1 7.4-10.4 [facility] CenterUxdfcuiZVFHWTJQYK1997-30-54 18:46:00 Test Item Value Reference Range Interpretation Comments Platelet (test code = Platelet) 301 133-450 [facility] CenterPmoxgviOBDEQFYLGO5796-22-05 18:46:00 Test Item Value Reference Range Interpretation Comments RDW (test code = RDW) 14.5 11.5-14.5 [facility] CenterAyipylpITJWCQKQHD4123-48-65 18:46:00 Test Item Value Reference Range Interpretation Comments RBC (test code = RBC) 4.84 4.70-6.10 [facility]AwkucovWGJMPCGZQJ3922-96-78 18:46:00 Test Item Value Reference Range Interpretation Comments Hgb (test code = Hgb) 14.4 14.0-18.0 [facility] HospitalAldtklmXKOAYOIBTA9207-98-06 18:46:00 Test Item Value Reference Range Interpretation Comments WBC (test code = WBC) 5.2 3.7-10.4 [facility] CenterXxyiyjnYRPLQKRUTE6633-12-86 18:46:00 Test Item Value Reference Range Interpretation Comments MCH (test code = MCH) 29.8 pg 27.0-31.0 [facility] CenterNclxpmuASZMTQMJCS2456-85-18 18:46:00 Test Item Value Reference Range Interpretation Comments MCV (test code = MCV) 92.0 80.0-94.0 [facility] CenterPphebmkCTCWOTNKZE0266-93-91 18:46:00 Test Item Value Reference Range Interpretation Comments Hct (test code = Hct) 44.5 42.0-54.0 [facility] CenterZtbpvizULEPHLPSRA1766-38-88 18:46:00 Test Item Value Reference Range Interpretation Comments MCHC (test code = MCHC) 32.4 32.0-36.0 [facility]SvhucueXRQFJVXRDR4857-89-01 18:46:00 Test Item Value Reference Range Interpretation Comments [place]Hep C Ab (test Negative *NA*(07/22/14 code = [place]Hep C 1:46 PM) Ab) [facility] AND [id number] 18:46:00 Test Item Value Reference Range Interpretation Comments UA Urobilinogen (test code = UA <=1.0 mg/dL 0.1-1.0 Urobilinogen) [facility] AND [id number] 18:46:00 Test Item Value Reference Range Interpretation Comments UA Sq Epi (test code = UA Sq Epi) None Seen [facility] AND [id number] 18:46:00 Test Item Value Reference Range Interpretation Comments UA Leuk Est (test Negative (07/22/14 1:46 code = UA Leuk Est) PM) [facility] AND [id number] 18:46:00 Test Item Value Reference Range Interpretation Comments UA Nitrite (test code Negative (07/22/14 1:46 = UA Nitrite) PM) [facility] AND [id number] 18:46:00 Test Item Value Reference Range Interpretation Comments UA Blood (test code = Negative (07/22/14 1:46 UA Blood) PM) [facility] AND [id number] 18:46:00 Test Item Value Reference Range Interpretation Comments UA Ketones (test code = UA Negative mg/dL Ketones) [facility] AND [id number] 18:46:00 Test Item Value Reference Range Interpretation Comments UA Bili (test code = Negative *NA*(07/22/14 UA Bili) 1:46 PM) [facility] AND [id number] 18:46:00 Test Item Value Reference Range Interpretation Comments UA Bacteria (test code = UA Occasional /HPF Bacteria) [facility] AND [id number] 18:46:00 Test Item Value Reference Range Interpretation Comments UA RBC (test code = no gt See_Comment [Automa elizabeth message] The UA RBC) system which ge nerated this result transmit elizabeth reference range : <=2. The reference range was not used to interpr et this result as margaret l/abnormal. [facility] AND [id number] 18:46:00 Test Item Value Reference Range Interpretation Comments UA WBC (test code = 1 See_Comment [Automa elizabeth message] The UA WBC) system which ge nerated this result transmit elizabeth reference range : <=5. The reference range was not used to interpr et this result as margaret l/abnormal. [facility] AND [id number] 18:46:00 Test Item Value Reference Range Interpretation Comments UA Glucose (test code = UA Glucose) 30 mg/dL [facility] AND [id number] 18:46:00 Test Item Value Reference Range Interpretation Comments UA Protein (test code = UA Negative mg/dL Protein) [facility] AND [id number] 18:46:00 Test Item Value Reference Range Interpretation Comments UA pH (test code = UA pH) 6.5 5.0-8.0 [facility] AND [id number] 18:46:00 Test Item Value Reference Range Interpretation Comments UA Turbidity (test code = Clear (07/22/14 1:46 UA Turbidity) PM) [facility] AND [id number] 18:46:00 Test Item Value Reference Range Interpretation Comments UA Spec Grav (test code = UA Spec Grav) 1.010 [facility] AND [id number] 18:46:00 Test Item Value Reference Range Interpretation Comments UA Color (test code = Light Yellow UA Color) *NA*(07/22/14 1:46 PM) [facility]CHE[facility] [id number] 18:46:00 Test Item Value Reference Range Interpretation Comments Magnesium Lvl (test code = Magnesium 1.8 1.8-2.4 Lvl) [facility]KtfshdoOLHEPTZACJCV2434-17-88 18:46:00 Test Item Value Reference Range Interpretation Comments AGAP (test code = AGAP) 13.2 10.0-20.0 [facility] HospitalZvkoovkXSSUWVFXQQVY0787-53-07 18:46:00 Test Item Value Reference Range Interpretation Comments B/C Ratio (test code = B/C Ratio) 18 6-25 [facility] HospitalQxuqfarRXVBFJQFACWU7380-19-15 18:46:00 Test Item Value Reference Range Interpretation Comments A/G Ratio (test code = A/G Ratio) 1.1 0.7-1.6 [facility] HospitalWlatjsvTYWLKTYCMQLO5976-55-08 18:46:00 Test Item Value Reference Range Interpretation Comments Globulin (test code = Globulin) 3.3 2.0-4.0 [facility] HospitalByomhnlPFKFNUKPSKGH6393-78-29 18:46:00 Test Item Value Reference Range Interpretation Comments eGFR (test code = eGFR) 99 [facility] HospitalYctjjilRVJXPBDYPYPS5522-77-95 18:46:00 Test Item Value Reference Range Interpretation Comments Calcium Lvl (test code = Calcium Lvl) 9.0 8.5-10.5 [facility] HospitalZkzrsmkKUFJXOZMSAAM9838-52-60 18:46:00 Test Item Value Reference Range Interpretation Comments Chloride Lvl (test code = Chloride Lvl) 106 95-109 [facility] HospitalMmotoalAGCHPNHBFYOB2837-57-39 18:46:00 Test Item Value Reference Range Interpretation Comments Creatinine Lvl (test code = Creatinine 0.9 0.5-1.4 Lvl) [facility] HospitalLgutqpbSYGCIJKVWTTU9880-65-47 18:46:00 Test Item Value Reference Range Interpretation Comments Potassium Lvl (test code = Potassium 4.2 3.5-5.1 Lvl) [facility] HospitalPxbgwoaCLYABWGXIVEL2894-91-78 18:46:00 Test Item Value Reference Range Interpretation Comments Sodium Lvl (test code = Sodium Lvl) 139 135-145 [facility] HospitalWttvrznSMGLPZIQNMZN1249-36-78 18:46:00 Test Item Value Reference Range Interpretation Comments CO2 (test code = CO2) 24 24-32 [facility] HospitalImjdkccKZUFWMUMZNOS7529-92-04 18:46:00 Test Item Value Reference Range Interpretation Comments BUN (test code = BUN) 16 7-22 [facility] HospitalRlkospuXXOSHJWSGVAR8231-12-10 18:46:00 Test Item Value Reference Range Interpretation Comments Glucose Lvl (test code = Glucose Lvl) 141 70-99 [facility] HospitalQwslblwEUFURUKTJBWL1081-75-39 18:46:00 Test Item Value Reference Range Interpretation Comments Albumin Lvl (test code = Albumin Lvl) 3.6 3.5-5.0 [facility] HospitalBrebedsAAGTQTSDDKRL3731-63-25 18:46:00 Test Item Value Reference Range Interpretation Comments Alk Phos (test code = Alk Phos) 65 39-136 [facility] HospitalZefyjesXVBHMAHXLSVU8306-55-33 18:46:00 Test Item Value Reference Range Interpretation Comments Bili Total (test code = Bili Total) 0.3 0.2-1.3 [facility] HospitalWrpgpqoTOTUYQOLAZKM5681-99-79 18:46:00 Test Item Value Reference Range Interpretation Comments ALT (test code = ALT) 100 See_Comment [Auto mated message] The system which ge nerated this result transmit elizabeth reference range : <=65. The reference range was not used to interpr et this result as margaret l/abnormal. [facility] HospitalXgzpnwgFLNFOXVQAXKP9684-72-85 18:46:00 Test Item Value Reference Range Interpretation Comments AST (test code = AST) 53 See_Comment [Auto mated message] The system which ge nerated this result transmit elizabeth reference range : <=37. The reference range was not used to interpr et this result as margaret l/abnormal. [facility] HospitalPfzemqyRRIBEIBPTPDP6621-26-67 18:46:00 Test Item Value Reference Range Interpretation Comments Total Protein (test code = Total 6.9 6.4-8.4 Protein) [facility]hhqtbxTWXJXEVHBZ6683-48-67 18:46:00 Test Item Value Reference Range Interpretation Comments Eosinophils (test code = 4.2 See_Comment [A utomated message] The Eosinophils) system which ge nerated this result tra nsmitted reference range : <=4.0. The reference r mitra was not used to int erpret this result as normal/abnormal . [facility] CenterZwdsggjUSNCWZHJSV6513-95-77 18:46:00 Test Item Value Reference Range Interpretation Comments Segs (test code = Segs) 56.4 45.0-75.0 [facility] CenterTahzkpjSYYZREMPXW1870-59-07 18:46:00 Test Item Value Reference Range Interpretation Comments Monocytes (test code = Monocytes) 10.3 2.0-12.0 [facility] CenterNkvgztpVWRJJJUJPX3736-86-94 18:46:00 Test Item Value Reference Range Interpretation Comments Lymphocytes (test code = Lymphocytes) 28.0 20.0-40.0 [facility] CenterWvelfaaRZYAPDNBID2084-58-73 18:46:00 Test Item Value Reference Range Interpretation Comments Monocytes # (test code 0.5 See_Comment [Aut omated message] The = Monocytes #) system which generated this result tra nsmitted reference range : <=0.8. The reference r mitra was not used to int erpret this result as normal/abnormal . [facility] CenterRzqzixtNFTNZXXZVB5200-39-21 18:46:00 Test Item Value Reference Range Interpretation Comments Basophils (test code = 1.1 See_Comment [Aut omated message] The Basophils) system which ge nerated this result tra nsmitted reference range : <=1.0. The reference r mitra was not used to int erpret this result as normal/abnormal . [facility] CenterYrgiptjOYBKOBCBTS6191-80-83 18:46:00 Test Item Value Reference Range Interpretation Comments Lymphocytes # (test code = Lymphocytes 1.5 1.0-5.5 #) [facility] CenterZtffmamOOENYRSZZI5450-57-18 18:46:00 Test Item Value Reference Range Interpretation Comments Segs-Bands # (test code = Segs-Bands #) 2.9 1.5-8.1 [facility] CenterKcajaajFFIVMTCHBN7058-61-35 18:46:00 Test Item Value Reference Range Interpretation Comments Eosinophils # (test code 0.2 See_Comment [A utomated message] The = Eosinophils #) system [facility] generated this result tra nsmitted reference range : <=0.5. The reference r mitra was not used to int erpret this result as normal/abnormal . [facility] CenterEysmtplXRTYYKVPFH0391-54-64 18:46:00 Test Item Value Reference Range Interpretation Comments Basophils # (test code 0.1 See_Comment [Aut omated message] The = Basophils #) system which generated this result tra nsmitted reference range : <=0.2. The reference r mitra was not used to int erpret this result as normal/abnormal . [facility] CenterXqinvmiDMEYAOZGFJ3487-34-31 18:46:00 Test Item Value Reference Range Interpretation Comments PT (test code = PT) 11.2 s 12.0-14.7 [facility] CenterJgiedvhBIIVSZOPOO4426-69-53 18:46:00 Test Item Value Reference Range Interpretation Comments INR (test code = INR) 0.82 0.85-1.17 [facility] CenterItsmvnsQRDKXVYCTK7952-52-96 18:46:00 Test Item Value Reference Range Interpretation Comments PTT (test code = PTT) 28.6 s 22.9-35.8 [facility] CenterZasxoovAIVAUIMQMI2713-83-49 18:46:00 Test Item Value Reference Range Interpretation Comments MPV (test code = MPV) 8.1 7.4-10.4 [facility] CenterUykpphiYCPDDPWCIV5992-48-41 18:46:00 Test Item Value Reference Range Interpretation Comments Platelet (test code = Platelet) 301 133-450 [facility] CenterCwdhbjcRBCUJUYAUA4140-07-88 18:46:00 Test Item Value Reference Range Interpretation Comments RDW (test code = RDW) 14.5 11.5-14.5 [facility] CenterSbhtqywRLOLIEROLZ7338-23-24 18:46:00 Test Item Value Reference Range Interpretation Comments RBC (test code = RBC) 4.84 4.70-6.10 [facility] CenterVgmcdcaYUYTVGDZMH5754-82-46 18:46:00 Test Item Value Reference Range Interpretation Comments Hgb (test code = Hgb) 14.4 14.0-18.0 [facility] CenterGooeskqUAYBFZSDSR2197-65-77 18:46:00 Test Item Value Reference Range Interpretation Comments WBC (test code = WBC) 5.2 3.7-10.4 [facility] CenterLfwlctuTGNLMQYFPY0566-30-18 18:46:00 Test Item Value Reference Range Interpretation Comments MCH (test code = MCH) 29.8 pg 27.0-31.0 [facility]AhrnkicDNFMCEZQRU8925-85-71 18:46:00 Test Item Value Reference Range Interpretation Comments MCV (test code = MCV) 92.0 80.0-94.0 [facility]EjffrrmKKCPXJRTGX8962-81-82 18:46:00 Test Item Value Reference Range Interpretation Comments Hct (test code = Hct) 44.5 42.0-54.0 [facility]OrsadupWRKQAHTASQ4698-03-57 18:46:00 Test Item Value Reference Range Interpretation Comments MCHC (test code = MCHC) 32.4 32.0-36.0 [facility] NortheastJqbuikySWGLSPHGEE8824-56-44 18:46:00 Test Item Value Reference Range Interpretation Comments [place]Hep C Ab (test Negative *NA*(07/22/14 code = [place]-Hep C 1:46 PM) Ab) [facility] AND [id number] 18:46:00 Test Item Value Reference Range Interpretation Comments UA Urobilinogen (test code = UA <=1.0 mg/dL 0.1-1.0 Urobilinogen) [facility] AND [id number] 18:46:00 Test Item Value Reference Range Interpretation Comments UA Sq Epi (test code = UA Sq Epi) None Seen [facility] AND [id number] 18:46:00 Test Item Value Reference Range Interpretation Comments UA Leuk Est (test Negative (07/22/14 1:46 code = UA Leuk Est) PM) [facility] AND [id number] 18:46:00 Test Item Value Reference Range Interpretation Comments UA Nitrite (test code Negative (07/22/14 1:46 = UA Nitrite) PM) [facility] AND [id number] 18:46:00 Test Item Value Reference Range Interpretation Comments UA Blood (test code = Negative (07/22/14 1:46 UA Blood) PM) [facility] AND [id number] 18:46:00 Test Item Value Reference Range Interpretation Comments UA Ketones (test code = UA Negative mg/dL Ketones) [facility] AND [id number] 18:46:00 Test Item Value Reference Range Interpretation Comments UA Bili (test code = Negative *NA*(07/22/14 UA Bili) 1:46 PM) [facility] [id number] 18:46:00 Test Item Value Reference Range Interpretation Comments UA Bacteria (test code = UA Occasional /HPF Bacteria) [facility] [id number] 18:46:00 Test Item Value Reference Range Interpretation Comments UA RBC (test code = no gt See_Comment [Automa elizabeth message] The UA RBC) system which ge nerated this result transmit elizabeth reference range : <=2. The reference range was not used to interpr et this result as margaret l/abnormal. [facility] [id number] 18:46:00 Test Item Value Reference Range Interpretation Comments UA WBC (test code = 1 See_Comment [Automa elizabeth message] The UA WBC) system which ge nerated this result transmit elizabeth reference range : <=5. The reference range was not used to interpr et this result as margaret l/abnormal. [facility] [id number] 18:46:00 Test Item Value Reference Range Interpretation Comments UA Glucose (test code = UA Glucose) 30 mg/dL [facility] [id number] 18:46:00 Test Item Value Reference Range Interpretation Comments UA Protein (test code = UA Negative mg/dL Protein) [facility] [id number] 18:46:00 Test Item Value Reference Range Interpretation Comments UA pH (test code = UA pH) 6.5 5.0-8.0 [facility] [id number] 18:46:00 Test Item Value Reference Range Interpretation Comments UA Turbidity (test code = Clear (07/22/14 1:46 UA Turbidity) PM) [facility] [id number] 18:46:00 Test Item Value Reference Range Interpretation Comments UA Spec Grav (test code = UA Spec Grav) 1.010 [facility] [id number] 18:46:00 Test Item Value Reference Range Interpretation Comments UA Color (test code = Light Yellow UA Color) *NA*(07/22/14 1:46 PM) [facility] [id number] 18:46:00 Test Item Value Reference Range Interpretation Comments Magnesium Lvl (test code = Magnesium 1.8 1.8-2.4 Lvl) [facility] DxmgfhfMECOIEGEGJYD7779-35-25 18:46:00 Test Item Value Reference Range Interpretation Comments AGAP (test code = AGAP) 13.2 10.0-20.0 [facility]KslivyoAAHRYRUFRKET2926-28-47 18:46:00 Test Item Value Reference Range Interpretation Comments B/C Ratio (test code = B/C Ratio) 18 6-25 [facility] HospitalTmxomguTSVSFIBBHHOE7667-82-88 18:46:00 Test Item Value Reference Range Interpretation Comments A/G Ratio (test code = A/G Ratio) 1.1 0.7-1.6 [facility] HospitalHjnemgkLXATAXMTQSVW6293-12-66 18:46:00 Test Item Value Reference Range Interpretation Comments Globulin (test code = Globulin) 3.3 2.0-4.0 [facility] HospitalSpfhcigOASTRDHJQSCE1086-39-26 18:46:00 Test Item Value Reference Range Interpretation Comments eGFR (test code = eGFR) 99 [facility] HospitalQnlmxlpTGODRDEFLJCT9844-38-95 18:46:00 Test Item Value Reference Range Interpretation Comments Calcium Lvl (test code = Calcium Lvl) 9.0 8.5-10.5 [facility] HospitalWefuyeeVMDFKMMPEEXX1902-94-89 18:46:00 Test Item Value Reference Range Interpretation Comments Chloride Lvl (test code = Chloride Lvl) 106 95-109 [facility] HospitalGmoxqxzWGYHKXSTAEHB1379-14-55 18:46:00 Test Item Value Reference Range Interpretation Comments Creatinine Lvl (test code = Creatinine 0.9 0.5-1.4 Lvl) [facility] HospitalWknjvgmFSAGQVHKVKNA0136-62-74 18:46:00 Test Item Value Reference Range Interpretation Comments Potassium Lvl (test code = Potassium 4.2 3.5-5.1 Lvl) [facility] HospitalQrlfrwiJDEGDZYEYHXM0375-29-35 18:46:00 Test Item Value Reference Range Interpretation Comments Sodium Lvl (test code = Sodium Lvl) 139 135-145 [facility] HospitalItimimfFPHFFKTWSPFD8303-85-10 18:46:00 Test Item Value Reference Range Interpretation Comments CO2 (test code = CO2) 24 24-32 [facility] HospitalYjpukkqTJYKHIKZZIXL0144-89-44 18:46:00 Test Item Value Reference Range Interpretation Comments BUN (test code = BUN) 16 7-22 [facility] HospitalNlutrguNMONBYOQKLCU1743-84-35 18:46:00 Test Item Value Reference Range Interpretation Comments Glucose Lvl (test code = Glucose Lvl) 141 70-99 [facility] HospitalPxqssrxRBAYWCEFZMNZ1479-52-70 18:46:00 Test Item Value Reference Range Interpretation Comments Albumin Lvl (test code = Albumin Lvl) 3.6 3.5-5.0 [facility] HospitalAzazzzyAVRCDLGXXUTO8523-51-08 18:46:00 Test Item Value Reference Range Interpretation Comments Alk Phos (test code = Alk Phos) 65 39-136 [facility] HospitalMfzohusHFLVMRSWZKTR0627-33-66 18:46:00 Test Item Value Reference Range Interpretation Comments Bili Total (test code = Bili Total) 0.3 0.2-1.3 [facility] HospitalAessutgRLYKFWHNBSXB2842-88-16 18:46:00 Test Item Value Reference Range Interpretation Comments ALT (test code = ALT) 100 See_Comment [Auto mated message] The system which ge nerated this result transmit elizabeth reference range : <=65. The reference range was not used to interpr et this result as margaret l/abnormal. [facility] HospitalHaijlbjHIVBMKKKMCWW7722-53-04 18:46:00 Test Item Value Reference Range Interpretation Comments AST (test code = AST) 53 See_Comment [Auto mated message] The system which ge nerated this result transmit elizabeth reference range : <=37. The reference range was not used to interpr et this result as margaret l/abnormal. [facility] HospitalFlkwlcqZCTROMSHWBVU6038-56-22 18:46:00 Test Item Value Reference Range Interpretation Comments Total Protein (test code = Total 6.9 6.4-8.4 Protein) [facility]NfwrufaEHDHRSVMBX5505-87-98 18:46:00 Test Item Value Reference Range Interpretation Comments Eosinophils (test code = 4.2 See_Comment [A utomated message] The Eosinophils) system which ge nerated this result tra nsmitted reference range : <=4.0. The reference r mitra was not used to int erpret this result as normal/abnormal . [facility] CenterMchlxgnYIDKVJHADF3465-68-59 18:46:00 Test Item Value Reference Range Interpretation Comments Segs (test code = Segs) 56.4 45.0-75.0 [facility] CenterDlylivrPPLYGYRQYG9928-01-18 18:46:00 Test Item Value Reference Range Interpretation Comments Monocytes (test code = Monocytes) 10.3 2.0-12.0 [facility] CenterFjthxixAUWFYCVYAI1326-78-75 18:46:00 Test Item Value Reference Range Interpretation Comments Lymphocytes (test code = Lymphocytes) 28.0 20.0-40.0 [facility] CenterYfqlowiPIRLNMGLDM3255-44-73 18:46:00 Test Item Value Reference Range Interpretation Comments Monocytes # (test code 0.5 See_Comment [Aut omated message] The = Monocytes #) system which generated this result tra nsmitted reference range : <=0.8. The reference r mitra was not used to int erpret this result as normal/abnormal . [facility] CenterLzzvnsbWCNWJWFUAJ3271-66-75 18:46:00 Test Item Value Reference Range Interpretation Comments Basophils (test code = 1.1 See_Comment [Aut omated message] The Basophils) system which ge nerated this result tra nsmitted reference range : <=1.0. The reference r mitra was not used to int erpret this result as normal/abnormal . [facility] CenterHvzwcpqTWIHUJLUJQ4141-52-90 18:46:00 Test Item Value Reference Range Interpretation Comments Lymphocytes # (test code = Lymphocytes 1.5 1.0-5.5 #) [facility] CenterRycocuzABFTGUKZDQ9475-09-02 18:46:00 Test Item Value Reference Range Interpretation Comments Segs-Bands # (test code = Segs-Bands #) 2.9 1.5-8.1 [facility] CenterMrprrjvQXYECQVCCC8408-28-92 18:46:00 Test Item Value Reference Range Interpretation Comments Eosinophils # (test code 0.2 See_Comment [A utomated message] The = Eosinophils #) system whic h generated this result tra nsmitted reference range : <=0.5. The reference r mitra was not used to int erpret this result as normal/abnormal . [facility] CenterRnqbazwXJORDKGEMF6044-23-27 18:46:00 Test Item Value Reference Range Interpretation Comments Basophils # (test code 0.1 See_Comment [Aut omated message] The = Basophils #) system which generated this result tra nsmitted reference range : <=0.2. The reference r mitra was not used to int erpret this result as normal/abnormal . [facility] CenterLelnrrsDRYVRWKYOU8350-66-46 18:46:00 Test Item Value Reference Range Interpretation Comments PT (test code = PT) 11.2 s 12.0-14.7 [place] [id number] 18:46:00 Test Item Value Reference Range Interpretation Comments INR (test code = INR) 0.82 0.85-1.17 [facility] CenterRyptuapZSWUKVPVDN1972-09-71 18:46:00 Test Item Value Reference Range Interpretation Comments PTT (test code = PTT) 28.6 s 22.9-35.8 [facility] CenterUopulpiGKJUJXDIIV3453-12-99 18:46:00 Test Item Value Reference Range Interpretation Comments MPV (test code = MPV) 8.1 7.4-10.4 [facility] CenterNtwnkdlEWJSDUCELE2020-03-02 18:46:00 Test Item Value Reference Range Interpretation Comments Platelet (test code = Platelet) 301 133-450 [facility] CenterCguabrdPIFKXWIHTT7549-70-57 18:46:00 Test Item Value Reference Range Interpretation Comments RDW (test code = RDW) 14.5 11.5-14.5 [facility] CenterSheufctZENNVBJGSL8926-59-83 18:46:00 Test Item Value Reference Range Interpretation Comments RBC (test code = RBC) 4.84 4.70-6.10 [facility] CenterHkoerydTPSBDXAJDN7343-37-25 18:46:00 Test Item Value Reference Range Interpretation Comments Hgb (test code = Hgb) 14.4 14.0-18.0 [facility] CenterYmbgybwDGZUSVFGHS0821-12-49 18:46:00 Test Item Value Reference Range Interpretation Comments WBC (test code = WBC) 5.2 3.7-10.4 [facility] CenterTsrgdwpSNHYVEKTUF5185-68-15 18:46:00 Test Item Value Reference Range Interpretation Comments MCH (test code = MCH) 29.8 pg 27.0-31.0 [facility] CenterRienkghFZRQLKJCQY5653-22-48 18:46:00 Test Item Value Reference Range Interpretation Comments MCV (test code = MCV) 92.0 80.0-94.0 [facility] CenterEdudtlaGMWAJHRHNE7875-86-32 18:46:00 Test Item Value Reference Range Interpretation Comments Hct (test code = Hct) 44.5 42.0-54.0 [facility] CenterNnfunsoAPLCLQZYDC5985-98-59 18:46:00 Test Item Value Reference Range Interpretation Comments MCHC (test code = MCHC) 32.4 32.0-36.0 [facility]LyxxqeuMAWHPIHOLM3760-01-21 18:46:00 Test Item Value Reference Range Interpretation Comments [place]-Hep C Ab (test Negative *NA*(07/22/14 code = [place]-Hep C 1:46 PM) Ab) [facility] AND [id number] 18:46:00 Test Item Value Reference Range Interpretation Comments UA Urobilinogen (test code = UA <=1.0 mg/dL 0.1-1.0 Urobilinogen) [facility] AND [id number] 18:46:00 Test Item Value Reference Range Interpretation Comments UA Sq Epi (test code = UA Sq Epi) None Seen [facility] AND [id number] 18:46:00 Test Item Value Reference Range Interpretation Comments UA Leuk Est (test Negative (07/22/14 1:46 code = UA Leuk Est) PM) [facility] AND [id number] 18:46:00 Test Item Value Reference Range Interpretation Comments UA Nitrite (test code Negative (07/22/14 1:46 = UA Nitrite) PM) [facility] AND [id number] 18:46:00 Test Item Value Reference Range Interpretation Comments UA Blood (test code = Negative (07/22/14 1:46 UA Blood) PM) [facility] AND [id number] 18:46:00 Test Item Value Reference Range Interpretation Comments UA Ketones (test code = UA Negative mg/dL Ketones) [facility] AND [id number] 18:46:00 Test Item Value Reference Range Interpretation Comments UA Bili (test code = Negative *NA*(07/22/14 UA Bili) 1:46 PM) [facility] AND [id number] 18:46:00 Test Item Value Reference Range Interpretation Comments UA Bacteria (test code = UA Occasional /HPF Bacteria) [facility] AND [id number] 18:46:00 Test Item Value Reference Range Interpretation Comments UA RBC (test code = no gt See_Comment [Automa elizabeth message] The UA RBC) system which ge nerated this result transmit elizabeth reference range : <=2. The reference range was not used to interpr et this result as margaret l/abnormal. [facility] AND [id number] 18:46:00 Test Item Value Reference Range Interpretation Comments UA WBC (test code = 1 See_Comment [Automa elizabeth message] The UA WBC) system which ge nerated this result transmit elizabeth reference range : <=5. The reference range was not used to interpr et this result as margaret l/abnormal. [facility] AND [id number] 18:46:00 Test Item Value Reference Range Interpretation Comments UA Glucose (test code = UA Glucose) 30 mg/dL [facility] AND [id number] 18:46:00 Test Item Value Reference Range Interpretation Comments UA Protein (test code = UA Negative mg/dL Protein) [facility] AND [id number] 18:46:00 Test Item Value Reference Range Interpretation Comments UA pH (test code = UA pH) 6.5 5.0-8.0 [facility] AND [id number] 18:46:00 Test Item Value Reference Range Interpretation Comments UA Turbidity (test code = Clear (07/22/14 1:46 UA Turbidity) PM) [facility] AND [id number] 18:46:00 Test Item Value Reference Range Interpretation Comments UA Spec Grav (test code = UA Spec Grav) 1.010 [facility] AND [id number] 18:46:00 Test Item Value Reference Range Interpretation Comments UA Color (test code = Light Yellow UA Color) *NA*(07/22/14 1:46 PM) [facility] [id number] 18:46:00 Test Item Value Reference Range Interpretation Comments Magnesium Lvl (test code = Magnesium 1.8 1.8-2.4 Lvl) [facility]NxhgrrpKRKLFGFSGZYF3167-95-66 18:46:00 Test Item Value Reference Range Interpretation Comments AGAP (test code = AGAP) 13.2 10.0-20.0 [facility] HospitalIdkzvhbWFXIILKUHUPP3719-05-94 18:46:00 Test Item Value Reference Range Interpretation Comments B/C Ratio (test code = B/C Ratio) 18 6-25 [facility] HospitalVhccfodVBLNHOEXMANS7610-53-02 18:46:00 Test Item Value Reference Range Interpretation Comments A/G Ratio (test code = A/G Ratio) 1.1 0.7-1.6 [facility] HospitalTogbewrIPWAWWNLHSYU8901-15-83 18:46:00 Test Item Value Reference Range Interpretation Comments Globulin (test code = Globulin) 3.3 2.0-4.0 [facility] HospitalBnyihueYBNRQXLTOEGQ2150-48-28 18:46:00 Test Item Value Reference Range Interpretation Comments eGFR (test code = eGFR) 99 [facility] HospitalPjixqllFLVJTNJOTPDB1083-67-77 18:46:00 Test Item Value Reference Range Interpretation Comments Calcium Lvl (test code = Calcium Lvl) 9.0 8.5-10.5 [facility] HospitalUglucyqRFLMQXZVNXIK3148-67-42 18:46:00 Test Item Value Reference Range Interpretation Comments Chloride Lvl (test code = Chloride Lvl) 106 95-109 [facility] HospitalVyerxboALRKNOHUONYI8700-46-47 18:46:00 Test Item Value Reference Range Interpretation Comments Creatinine Lvl (test code = Creatinine 0.9 0.5-1.4 Lvl) [facility] HospitalMcknuskXPEWAELRLAVY0101-13-55 18:46:00 Test Item Value Reference Range Interpretation Comments Potassium Lvl (test code = Potassium 4.2 3.5-5.1 Lvl) [facility] HospitalMixluedMAOAZYCDTMIS5237-96-60 18:46:00 Test Item Value Reference Range Interpretation Comments Sodium Lvl (test code = Sodium Lvl) 139 135-145 [facility] HospitalLkhlqooLZWCUPVUJXXI6070-65-73 18:46:00 Test Item Value Reference Range Interpretation Comments CO2 (test code = CO2) 24 24-32 [facility] HospitalUgiouzeNYOHLCAVRLCP5309-84-03 18:46:00 Test Item Value Reference Range Interpretation Comments BUN (test code = BUN) 16 7-22 [facility] HospitalLceyevzWINPGVTGNGVE7817-39-62 18:46:00 Test Item Value Reference Range Interpretation Comments Glucose Lvl (test code = Glucose Lvl) 141 70-99 [facility] HospitalXtenfpyOVIHHDGXIEGO1090-01-50 18:46:00 Test Item Value Reference Range Interpretation Comments Albumin Lvl (test code = Albumin Lvl) 3.6 3.5-5.0 [facility] HospitalInbnogrOILMJKVNGKBL9804-16-29 18:46:00 Test Item Value Reference Range Interpretation Comments Alk Phos (test code = Alk Phos) 65 39-136 [facility] HospitalEbdxkqgICAADDLLAYKL5803-12-95 18:46:00 Test Item Value Reference Range Interpretation Comments Bili Total (test code = Bili Total) 0.3 0.2-1.3 [facility] HospitalJjigwioNIETOJPWPIVU2090-41-07 18:46:00 Test Item Value Reference Range Interpretation Comments ALT (test code = ALT) 100 See_Comment [Auto mated message] The system which ge nerated this result transmit elizabeth reference range : <=65. The reference range was not used to interpr et this result as margaret l/abnormal. [facility] HospitalZzdjvfnOVZDKDDAPWUD3310-97-79 18:46:00 Test Item Value Reference Range Interpretation Comments AST (test code = AST) 53 See_Comment [Auto mated message] The system which ge nerated this result transmit elizabeth reference range : <=37. The reference range was not used to interpr et this result as margaret l/abnormal. [facility] HospitalEdkisczMMJGERALBUQG6349-61-31 18:46:00 Test Item Value Reference Range Interpretation Comments Total Protein (test code = Total 6.9 6.4-8.4 Protein) [facility] CenterOvdretdNUFLXOLINB1700-00-97 18:46:00 Test Item Value Reference Range Interpretation Comments Eosinophils (test code = 4.2 See_Comment [A utomated message] The Eosinophils) system which ge nerated this result tra nsmitted reference range : <=4.0. The reference r mitra was not used to int erpret this result as normal/abnormal . [facility] CenterWhjqyjyDXWUICIFEW9393-85-39 18:46:00 Test Item Value Reference Range Interpretation Comments Segs (test code = Segs) 56.4 45.0-75.0 [facility] CenterMzzwubrHBFKJJJMGO9009-07-75 18:46:00 Test Item Value Reference Range Interpretation Comments Monocytes (test code = Monocytes) 10.3 2.0-12.0 [facility] CenterXifhlmwACYGOXIATQ3431-85-23 18:46:00 Test Item Value Reference Range Interpretation Comments Lymphocytes (test code = Lymphocytes) 28.0 20.0-40.0 [facility] CenterWfbmuafRYQIEYZBTD5644-56-51 18:46:00 Test Item Value Reference Range Interpretation Comments Monocytes # (test code 0.5 See_Comment [Aut omated message] The = Monocytes #) system which generated this result tra nsmitted reference range : <=0.8. The reference r mitra was not used to int erpret this result as normal/abnormal . [facility] CenterTzrzlltBXEGBICDNO4336-93-69 18:46:00 Test Item Value Reference Range Interpretation Comments Basophils (test code = 1.1 See_Comment [Aut omated message] The Basophils) system which ge nerated this result tra nsmitted reference range : <=1.0. The reference r mitra was not used to int erpret this result as normal/abnormal . [facility] CenterHghfqdvGENONADRAX3096-69-68 18:46:00 Test Item Value Reference Range Interpretation Comments Lymphocytes # (test code = Lymphocytes 1.5 1.0-5.5 #) [facility] CenterGdgfquqXRJMJZJYVH7726-77-55 18:46:00 Test Item Value Reference Range Interpretation Comments Segs-Bands # (test code = Segs-Bands #) 2.9 1.5-8.1 [facility] CenterYjkahbtCILCRZJCZJ6759-47-13 18:46:00 Test Item Value Reference Range Interpretation Comments Eosinophils # (test code 0.2 See_Comment [A utomated message] The = Eosinophils #) system whic h generated this result tra nsmitted reference range : <=0.5. The reference r mitra was not used to int erpret this result as normal/abnormal . [facility] CenterQdtoldgRZBYOJESEP5403-46-16 18:46:00 Test Item Value Reference Range Interpretation Comments Basophils # (test code 0.1 See_Comment [Aut omated message] The = Basophils #) system which generated this result tra nsmitted reference range : <=0.2. The reference r mitra was not used to int erpret this result as normal/abnormal . [facility] CenterEqtjaglNIYUFDBNKT2733-92-03 18:46:00 Test Item Value Reference Range Interpretation Comments PT (test code = PT) 11.2 s 12.0-14.7 [facility] CenterSruzfudCTUJYGHZYZ3159-55-86 18:46:00 Test Item Value Reference Range Interpretation Comments INR (test code = INR) 0.82 0.85-1.17 [facility] CenterLfixvcnJCESOCTMAJ6093-02-01 18:46:00 Test Item Value Reference Range Interpretation Comments PTT (test code = PTT) 28.6 s 22.9-35.8 [facility] CenterPutzhgwPWWMYTQSJU6259-24-45 18:46:00 Test Item Value Reference Range Interpretation Comments MPV (test code = MPV) 8.1 7.4-10.4 [facility] CenterAfxsrcnURKALAKWEI9325-69-38 18:46:00 Test Item Value Reference Range Interpretation Comments Platelet (test code = Platelet) 301 133450 [facility]IeghsogADLSSYKSHN6453-92-57 18:46:00 Test Item Value Reference Range Interpretation Comments RDW (test code = RDW) 14.5 11.5-14.5 [facility] HospitalCfplytgHBYKHLJFEJ3085-82-87 18:46:00 Test Item Value Reference Range Interpretation Comments RBC (test code = RBC) 4.84 4.70-6.10 [facility] HospitalXfctzqsCFNDRHBPHP2847-26-77 18:46:00 Test Item Value Reference Range Interpretation Comments Hgb (test code = Hgb) 14.4 14.0-18.0 [facility] HospitalXqpqhinLOXSRLGORY9372-40-95 18:46:00 Test Item Value Reference Range Interpretation Comments WBC (test code = WBC) 5.2 3.7-10.4 [facility] CenterRkaljdhHLIDZLFVYH8405-36-06 18:46:00 Test Item Value Reference Range Interpretation Comments MCH (test code = MCH) 29.8 pg 27.0-31.0 [facility] HospitalZykejzoURZSJMDCNB7134-26-27 18:46:00 Test Item Value Reference Range Interpretation Comments MCV (test code = MCV) 92.0 80.0-94.0 [facility]nehhvxFZMISQLWXJ7704-91-33 18:46:00 Test Item Value Reference Range Interpretation Comments Hct (test code = Hct) 44.5 42.0-54.0 [facility] HospitalSwamkjpCMUZSNIIIW2526-05-02 18:46:00 Test Item Value Reference Range Interpretation Comments MCHC (test code = MCHC) 32.4 32.0-36.0 [facility]UyutyecOJTNIXYEWU2197-63-76 18:46:00 Test Item Value Reference Range Interpretation Comments [place]Hep C Ab (test Negative *NA*(07/22/14 code = [place]-Hep C 1:46 PM) Ab) [facility] [id number] 18:46:00 Test Item Value Reference Range Interpretation Comments UA Urobilinogen (test code = UA <=1.0 mg/dL 0.1-1.0 Urobilinogen) [facility] [id number] 18:46:00 Test Item Value Reference Range Interpretation Comments UA Sq Epi (test code = UA Sq Epi) None [facility] [id number] 18:46:00 Test Item Value Reference Range Interpretation Comments UA Leuk Est (test Negative (07/22/14 1:46 code = UA Leuk Est) PM) [facility] AND [id number] 18:46:00 Test Item Value Reference Range Interpretation Comments UA Nitrite (test code Negative (07/22/14 1:46 = UA Nitrite) PM) [facility] AND [id number] 18:46:00 Test Item Value Reference Range Interpretation Comments UA Blood (test code = Negative (07/22/14 1:46 UA Blood) PM) [facility] AND [id number] 18:46:00 Test Item Value Reference Range Interpretation Comments UA Ketones (test code = UA Negative mg/dL Ketones) [facility] AND [id number] 18:46:00 Test Item Value Reference Range Interpretation Comments UA Bili (test code = Negative *NA*(07/22/14 UA Bili) 1:46 PM) [facility] AND [id number] 18:46:00 Test Item Value Reference Range Interpretation Comments UA Bacteria (test code = UA Occasional /HPF Bacteria) [facility] AND [id number] 18:46:00 Test Item Value Reference Range Interpretation Comments UA RBC (test code = no gt See_Comment [Automa elizabeth message] The UA RBC) system which ge nerated this result transmit elizabeth reference range : <=2. The reference range was not used to interpr et this result as margaret l/abnormal. [facility] [facility] [id number] 18:46:00 Test Item Value Reference Range Interpretation Comments UA WBC (test code = 1 See_Comment [Automa elizabeth message] The UA WBC) system which ge nerated this result transmit elizabeth reference range : <=5. The reference range was not used to interpr et this result as margaret l/abnormal. [facility] AND [id number] 18:46:00 Test Item Value Reference Range Interpretation Comments UA Glucose (test code = UA Glucose) 30 mg/dL [facility] AND [id number] 18:46:00 Test Item Value Reference Range Interpretation Comments UA Protein (test code = UA Negative mg/dL Protein) [facility] AND [id number] 18:46:00 Test Item Value Reference Range Interpretation Comments UA pH (test code = UA pH) 6.5 5.0-8.0 [facility] [id number] 18:46:00 Test Item Value Reference Range Interpretation Comments UA Turbidity (test code = Clear (07/22/14 1:46 UA Turbidity) PM) [facility] [id number] 18:46:00 Test Item Value Reference Range Interpretation Comments UA Spec Grav (test code = UA Spec Grav) 1.010 [facility] AND [id number] 18:46:00 Test Item Value Reference Range Interpretation Comments UA Color (test code = Light Yellow UA Color) *NA*(07/22/14 1:46 PM) [facility] [id number] 18:46:00 Test Item Value Reference Range Interpretation Comments Magnesium Lvl (test code = Magnesium 1.8 1.8-2.4 Lvl) [facility]PlsicmyNYBHJDCFNKAV7518-82-27 18:46:00 Test Item Value Reference Range Interpretation Comments AGAP (test code = AGAP) 13.2 10.0-20.0 [facility] HospitalNalxqxcMAUKEJKDMAFT5306-29-02 18:46:00 Test Item Value Reference Range Interpretation Comments B/C Ratio (test code = B/C Ratio) 18 6-25 [facility] HospitalInmajfvZXMXWMBDIDQE2371-12-60 18:46:00 Test Item Value Reference Range Interpretation Comments A/G Ratio (test code = A/G Ratio) 1.1 0.7-1.6 [facility] HospitalLeelxtpWBERQVZBLHVN7366-74-32 18:46:00 Test Item Value Reference Range Interpretation Comments Globulin (test code = Globulin) 3.3 2.0-4.0 [facility] HospitalKzurxwuTBZLKMFKXTBE3284-49-67 18:46:00 Test Item Value Reference Range Interpretation Comments eGFR (test code = eGFR) 99 [facility] HospitalGbznerdJQFSHJQKMLXH4391-60-38 18:46:00 Test Item Value Reference Range Interpretation Comments Calcium Lvl (test code = Calcium Lvl) 9.0 8.5-10.5 [facility] HospitalQfbckntLVOZKPBPSHPY3387-96-11 18:46:00 Test Item Value Reference Range Interpretation Comments Chloride Lvl (test code = Chloride Lvl) 106 95-109 [facility] HospitalWqzlbcfEOANPTRELJCQ5348-56-62 18:46:00 Test Item Value Reference Range Interpretation Comments Creatinine Lvl (test code = Creatinine 0.9 0.5-1.4 Lvl) [facility] HospitalTwwrgydNGMYGLVPILUN2582-44-40 18:46:00 Test Item Value Reference Range Interpretation Comments Potassium Lvl (test code = Potassium 4.2 3.5-5.1 Lvl) [facility] HospitalLhobhzyZYKOLVXJYFSK7505-96-66 18:46:00 Test Item Value Reference Range Interpretation Comments Sodium Lvl (test code = Sodium Lvl) 139 135-145 [facility] HospitalCloynhfPWPCGICTVFWW7471-29-66 18:46:00 Test Item Value Reference Range Interpretation Comments CO2 (test code = CO2) 24 24-32 [facility] HospitalDodhvsbQKGYXDAWGARV8050-33-59 18:46:00 Test Item Value Reference Range Interpretation Comments BUN (test code = BUN) 16 7-22 [facility] HospitalXmazgeoVJWWCHTXHVGY4848-29-46 18:46:00 Test Item Value Reference Range Interpretation Comments Glucose Lvl (test code = Glucose Lvl) 141 70-99 [facility] HospitalWqctvpdNYXKGXHPDQEC7034-42-13 18:46:00 Test Item Value Reference Range Interpretation Comments Albumin Lvl (test code = Albumin Lvl) 3.6 3.5-5.0 [facility] HospitalXkdwkyeUKLWURSGHHHW5348-75-51 18:46:00 Test Item Value Reference Range Interpretation Comments Alk Phos (test code = Alk Phos) 65 39-136 [facility] HospitalJoybvstWTVAINHSBJJW2297-31-17 18:46:00 Test Item Value Reference Range Interpretation Comments Bili Total (test code = Bili Total) 0.3 0.2-1.3 [facility] HospitalEgeadguITVSYYLWMBGB1988-51-27 18:46:00 Test Item Value Reference Range Interpretation Comments ALT (test code = ALT) 100 See_Comment [Auto mated message] The system which ge nerated this result transmit elizbaeth reference range : <=65. The reference range was not used to interpr et this result as margaret l/abnormal. [facility] HospitalZdedjbtZVWXWCWULVSD0054-49-69 18:46:00 Test Item Value Reference Range Interpretation Comments AST (test code = AST) 53 See_Comment [Auto mated message] The system which ge nerated this result transmit elizabeth reference range : <=37. The reference range was not used to interpr et this result as margaret l/abnormal. [facility] HospitalYkisvipMOZSISARBMWZ3057-76-72 18:46:00 Test Item Value Reference Range Interpretation Comments Total Protein (test code = Total 6.9 6.4-8.4 Protein) [facility]QbyanhzDYWRPKOMYD8991-13-46 18:46:00 Test Item Value Reference Range Interpretation Comments Eosinophils (test code = 4.2 See_Comment [A utomated message] The Eosinophils) system which ge nerated this result tra nsmitted reference range : <=4.0. The reference r mitra was not used to int erpret this result as normal/abnormal . [facility] CenterUvugncbUNRRTEPAWZ4001-74-97 18:46:00 Test Item Value Reference Range Interpretation Comments Segs (test code = Segs) 56.4 45.0-75.0 [facility] CenterNbflmddNWVZOTJXGG1069-05-99 18:46:00 Test Item Value Reference Range Interpretation Comments Monocytes (test code = Monocytes) 10.3 2.0-12.0 [facility] CenterHcqurwhZWHFJEOXTD5013-96-19 18:46:00 Test Item Value Reference Range Interpretation Comments Lymphocytes (test code = Lymphocytes) 28.0 20.0-40.0 [facility] CenterLujbonrXFBTTXHFFM4603-59-30 18:46:00 Test Item Value Reference Range Interpretation Comments Monocytes # (test code 0.5 See_Comment [Aut omated message] The = Monocytes #) system which generated this result tra nsmitted reference range : <=0.8. The reference r mitra was not used to int erpret this result as normal/abnormal . [facility] CenterGfbumqdZZECPLWLEI1336-38-11 18:46:00 Test Item Value Reference Range Interpretation Comments Basophils (test code = 1.1 See_Comment [Aut omated message] The Basophils) system which ge nerated this result tra nsmitted reference range : <=1.0. The reference r mitra was not used to int erpret this result as normal/abnormal . [facility] CenterDbzszwlZWNZDXRLCE2056-83-74 18:46:00 Test Item Value Reference Range Interpretation Comments Lymphocytes # (test code = Lymphocytes 1.5 1.0-5.5 #) [facility] CenterDgahkhmJALNISMOJH9347-00-82 18:46:00 Test Item Value Reference Range Interpretation Comments Segs-Bands # (test code = Segs-Bands #) 2.9 1.5-8.1 [facility] CenterZbxdquxVIDLIBPOVT7088-26-12 18:46:00 Test Item Value Reference Range Interpretation Comments Eosinophils # (test code 0.2 See_Comment [A utomated message] The = Eosinophils #) system whic h generated this result tra nsmitted reference range : <=0.5. The reference r mitra was not used to int erpret this result as normal/abnormal . [facility] CenterSmgyaldHEOZHYGXRA6277-75-70 18:46:00 Test Item Value Reference Range Interpretation Comments Basophils # (test code 0.1 See_Comment [Aut omated message] The = Basophils #) system which generated this result tra nsmitted reference range : <=0.2. The reference r mitra was not used to int erpret this result as normal/abnormal . [facility] CenterFxxtbelVYGOWKSMLN4306-46-53 18:46:00 Test Item Value Reference Range Interpretation Comments PT (test code = PT) 11.2 s 12.0-14.7 [facility] CenterRpqnvwfHOBUVMCBEJ6857-64-29 18:46:00 Test Item Value Reference Range Interpretation Comments INR (test code = INR) 0.82 0.85-1.17 [facility] CenterDpldkpuDICOQIHJEC5328-61-83 18:46:00 Test Item Value Reference Range Interpretation Comments PTT (test code = PTT) 28.6 s 22.9-35.8 [facility] CenterIzhxtwlMQKZHUQTQI7848-00-58 18:46:00 Test Item Value Reference Range Interpretation Comments MPV (test code = MPV) 8.1 7.4-10.4 [facility] CenterHxbmdyyDCSVMIDZVM7712-06-34 18:46:00 Test Item Value Reference Range Interpretation Comments Platelet (test code = Platelet) 301 133-450 [facility] CenterDdojdhoCWPNTVRLZO4138-83-58 18:46:00 Test Item Value Reference Range Interpretation Comments RDW (test code = RDW) 14.5 11.5-14.5 [facility] CenterXwnyxrzMLFEGAYAJC4519-94-69 18:46:00 Test Item Value Reference Range Interpretation Comments RBC (test code = RBC) 4.84 4.70-6.10 [facility] CenterNzqvxfbCYBCYVSNPB0928-73-35 18:46:00 Test Item Value Reference Range Interpretation Comments Hgb (test code = Hgb) 14.4 14.0-18.0 [facility] CenterAhwejrsYUXKBAIGEN0083-20-68 18:46:00 Test Item Value Reference Range Interpretation Comments WBC (test code = WBC) 5.2 3.7-10.4 [facility] MxghaooXHYSCVWUDB3859-16-64 18:46:00 Test Item Value Reference Range Interpretation Comments MCH (test code = MCH) 29.8 pg 27.0-31.0 [facility] XwgtdxgALJNZLMAOT0634-45-33 18:46:00 Test Item Value Reference Range Interpretation Comments MCV (test code = MCV) 92.0 80.0-94.0 [facility] UhtttwvYAUCKEJUXM5616-50-33 18:46:00 Test Item Value Reference Range Interpretation Comments Hct (test code = Hct) 44.5 42.0-54.0 [facility]JhbubwaBUXAEVOJZI0817-89-45 18:46:00 Test Item Value Reference Range Interpretation Comments MCHC (test code = MCHC) 32.4 32.0-36.0 [facility]xvhylrXJMIFUIDPA4743-82-86 18:46:00 Test Item Value Reference Range Interpretation Comments [place]-Hep C Ab (test Negative *NA*(07/22/14 code = [place]-Hep C 1:46 PM) Ab) [facility] AND [id number] 18:46:00 Test Item Value Reference Range Interpretation Comments UA Urobilinogen (test code = UA <=1.0 mg/dL 0.1-1.0 Urobilinogen) [facility] AND [id number] 18:46:00 Test Item Value Reference Range Interpretation Comments UA Sq Epi (test code = UA Sq Epi) None Seen [facility] AND [id number] 18:46:00 Test Item Value Reference Range Interpretation Comments UA Leuk Est (test Negative (07/22/14 1:46 code = UA Leuk Est) PM) [facility] AND [id number] 18:46:00 Test Item Value Reference Range Interpretation Comments UA Nitrite (test code Negative (07/22/14 1:46 = UA Nitrite) PM) [facility] AND [id number] 18:46:00 Test Item Value Reference Range Interpretation Comments UA Blood (test code = Negative (07/22/14 1:46 UA Blood) PM) [facility] AND [id number] 18:46:00 Test Item Value Reference Range Interpretation Comments UA Ketones (test code = UA Negative mg/dL Ketones) [facility] AND [id number] 18:46:00 Test Item Value Reference Range Interpretation Comments UA Bili (test code = Negative *NA*(07/22/14 UA Bili) 1:46 PM) [facility] AND [id number] 18:46:00 Test Item Value Reference Range Interpretation Comments UA Bacteria (test code = UA Occasional /HPF Bacteria) [facility] AND [id number] 18:46:00 Test Item Value Reference Range Interpretation Comments UA RBC (test code = no gt See_Comment [Automa elizabeth message] The UA RBC) system which ge nerated this result transmit elizabeth reference range : <=2. The reference range was not used to interpr et this result as margaret l/abnormal. [facility] AND [id number] 18:46:00 Test Item Value Reference Range Interpretation Comments UA WBC (test code = 1 See_Comment [Automa elizabeth message] The UA WBC) system which ge nerated this result transmit elizabeth reference range : <=5. The reference range was not used to interpr et this result as margaret l/abnormal. [facility] AND [id number] 18:46:00 Test Item Value Reference Range Interpretation Comments UA Glucose (test code = UA Glucose) 30 mg/dL [facility] AND [id number] 18:46:00 Test Item Value Reference Range Interpretation Comments UA Protein (test code = UA Negative mg/dL Protein) [facility] AND [id number] 18:46:00 Test Item Value Reference Range Interpretation Comments UA pH (test code = UA pH) 6.5 5.0-8.0 [facility] AND [id number] 18:46:00 Test Item Value Reference Range Interpretation Comments UA Turbidity (test code = Clear (07/22/14 1:46 UA Turbidity) PM) [facility] AND [id number] 18:46:00 Test Item Value Reference Range Interpretation Comments UA Spec Grav (test code = UA Spec Grav) 1.010 [facility] AND [id number] 18:46:00 Test Item Value Reference Range Interpretation Comments UA Color (test code = Light Yellow UA Color) *NA*(07/22/14 1:46 PM) [facility]2015-06-09 18:46:00 Test Item Value Reference Range Interpretation Comments Magnesium Lvl (test code = Magnesium 1.8 1.8-2.4 Lvl) [facility] HospitalVmptptpTPNDFCUDHKQI2438-52-88 18:46:00 Test Item Value Reference Range Interpretation Comments AGAP (test code = AGAP) 13.2 10.0-20.0 [facility] HospitalGllomxxSECSEBJSSCUB2078-08-65 18:46:00 Test Item Value Reference Range Interpretation Comments B/C Ratio (test code = B/C Ratio) 18 6-25 [facility] HospitalIibvgtpULRJFPEYSQSR9295-21-11 18:46:00 Test Item Value Reference Range Interpretation Comments A/G Ratio (test code = A/G Ratio) 1.1 0.7-1.6 [facility] HospitalCisjmuuMNYZTYEUELTB0170-17-31 18:46:00 Test Item Value Reference Range Interpretation Comments Globulin (test code = Globulin) 3.3 2.0-4.0 [facility] HospitalPfhsdibFVEMWUXWTSRX5338-48-65 18:46:00 Test Item Value Reference Range Interpretation Comments eGFR (test code = eGFR) 99 [facility] HospitalVxxareaNKUOIJGRULJR1678-81-86 18:46:00 Test Item Value Reference Range Interpretation Comments Calcium Lvl (test code = Calcium Lvl) 9.0 8.5-10.5 [facility] HospitalPmmagbhMDAGSZUPEJSQ5560-26-07 18:46:00 Test Item Value Reference Range Interpretation Comments Chloride Lvl (test code = Chloride Lvl) 106 95-109 [facility] HospitalTmivpwwJUYGNWPUGXMW3781-93-35 18:46:00 Test Item Value Reference Range Interpretation Comments Creatinine Lvl (test code = Creatinine 0.9 0.5-1.4 Lvl) [facility] HospitalUylrcohFGOAMABHRACR0083-44-37 18:46:00 Test Item Value Reference Range Interpretation Comments Potassium Lvl (test code = Potassium 4.2 3.5-5.1 Lvl) [facility] HospitalGeypnfiLQOYXSETFNPR0050-10-66 18:46:00 Test Item Value Reference Range Interpretation Comments Sodium Lvl (test code = Sodium Lvl) 139 135-145 [facility] HospitalNjoxcguWDHAFOIHSEOD6485-61-25 18:46:00 Test Item Value Reference Range Interpretation Comments CO2 (test code = CO2) 24 24-32 [facility] HospitalFdbevwnEOWKHPPAWFOR5010-82-48 18:46:00 Test Item Value Reference Range Interpretation Comments BUN (test code = BUN) 16 7-22 [facility] HospitalFfxntlvDWRQJIUGCFRM7246-23-02 18:46:00 Test Item Value Reference Range Interpretation Comments Glucose Lvl (test code = Glucose Lvl) 141 70-99 [facility] HospitalNebcdnhPJNYGLZTOCDO3671-67-29 18:46:00 Test Item Value Reference Range Interpretation Comments Albumin Lvl (test code = Albumin Lvl) 3.6 3.5-5.0 [facility] HospitalNjwlvkzRKNZVFYOVZXH1207-04-70 18:46:00 Test Item Value Reference Range Interpretation Comments Alk Phos (test code = Alk Phos) 65 39-136 [facility] HospitalCqcmoufMPKMCSTDSXUB6928-20-65 18:46:00 Test Item Value Reference Range Interpretation Comments Bili Total (test code = Bili Total) 0.3 0.2-1.3 [facility] HospitalLontsnbYQHYNIOYMBKW6210-31-45 18:46:00 Test Item Value Reference Range Interpretation Comments ALT (test code = ALT) 100 See_Comment [Auto mated message] The system which ge nerated this result transmit elizabeth reference range : <=65. The reference range was not used to interpr et this result as margaret l/abnormal. [facility] HospitalPfqkofbQAZIARJDEILP7908-03-71 18:46:00 Test Item Value Reference Range Interpretation Comments AST (test code = AST) 53 See_Comment [Auto mated message] The system which ge nerated this result transmit elizabeth reference range : <=37. The reference range was not used to interpr et this result as margaret l/abnormal. [facility] HospitalMhjqgodQSAXKILHZUFL5832-49-38 18:46:00 Test Item Value Reference Range Interpretation Comments Total Protein (test code = Total 6.9 6.4-8.4 Protein) [facility] CenterThpgllpODLZMNNGZG8675-17-29 18:46:00 Test Item Value Reference Range Interpretation Comments Eosinophils (test code = 4.2 See_Comment [A utomated message] The Eosinophils) system which ge nerated this result tra nsmitted reference range : <=4.0. The reference r mitra was not used to int erpret this result as normal/abnormal . [facility] CenterZoullswCFANHHYSUN6379-47-83 18:46:00 Test Item Value Reference Range Interpretation Comments Segs (test code = Segs) 56.4 45.0-75.0 [facility] CenterMmvhlktKBNSKHQBPI0176-29-24 18:46:00 Test Item Value Reference Range Interpretation Comments Monocytes (test code = Monocytes) 10.3 2.0-12.0 [facility] CenterSrmegerIPGMVIAAKP7060-93-18 18:46:00 Test Item Value Reference Range Interpretation Comments Lymphocytes (test code = Lymphocytes) 28.0 20.0-40.0 [facility] CenterUrfmkpmCHBGRNFFHR6682-36-09 18:46:00 Test Item Value Reference Range Interpretation Comments Monocytes # (test code 0.5 See_Comment [Aut omated message] The = Monocytes #) system which generated this result tra nsmitted reference range : <=0.8. The reference r mitra was not used to int erpret this result as normal/abnormal . [facility] CenterRigqahmRTZXEBHXDA3176-61-81 18:46:00 Test Item Value Reference Range Interpretation Comments Basophils (test code = 1.1 See_Comment [Aut omated message] The Basophils) system which ge nerated this result tra nsmitted reference range : <=1.0. The reference r mitra was not used to int erpret this result as normal/abnormal . [facility] CenterBwvpqwqSPBQQNVJOH6266-62-10 18:46:00 Test Item Value Reference Range Interpretation Comments Lymphocytes # (test code = Lymphocytes 1.5 1.0-5.5 #) [facility] CenterXsnodvvHWFEEEAHJG2490-28-13 18:46:00 Test Item Value Reference Range Interpretation Comments Segs-Bands # (test code = Segs-Bands #) 2.9 1.5-8.1 [facility] CenterZmgihdwTFDBDNJYVM4091-52-15 18:46:00 Test Item Value Reference Range Interpretation Comments Eosinophils # (test code 0.2 See_Comment [A utomated message] The = Eosinophils #) system whic h generated this result tra nsmitted reference range : <=0.5. The reference r mitra was not used to int erpret this result as normal/abnormal . [facility] CenterMgyhmapCLZQMXMQMG1617-19-65 18:46:00 Test Item Value Reference Range Interpretation Comments Basophils # (test code 0.1 See_Comment [Aut omated message] The = Basophils #) system which generated this result tra nsmitted reference range : <=0.2. The reference r mitra was not used to int erpret this result as normal/abnormal . [facility] CenterMzmxzcpSSQUYRFGVD8023-56-42 18:46:00 Test Item Value Reference Range Interpretation Comments PT (test code = PT) 11.2 s 12.0-14.7 [facility] CenterXokkvydUEULQRRPNW3288-86-10 18:46:00 Test Item Value Reference Range Interpretation Comments INR (test code = INR) 0.82 0.85-1.17 [facility] CenterTgwjcsoREYJSRACHM1172-02-35 18:46:00 Test Item Value Reference Range Interpretation Comments PTT (test code = PTT) 28.6 s 22.9-35.8 [facility] CenterYucmalqQHVGENCATJ7599-00-28 18:46:00 Test Item Value Reference Range Interpretation Comments MPV (test code = MPV) 8.1 7.4-10.4 [facility] CenterLzumbnuQFQPCWEPET6808-91-93 18:46:00 Test Item Value Reference Range Interpretation Comments Platelet (test code = Platelet) 301 133-450 [facility] CenterQwzxtnaBODOVTIDCF1014-48-58 18:46:00 Test Item Value Reference Range Interpretation Comments RDW (test code = RDW) 14.5 11.5-14.5 [facility] CenterFkkmyccCTAILAXBUE3625-47-79 18:46:00 Test Item Value Reference Range Interpretation Comments RBC (test code = RBC) 4.84 4.70-6.10 [facility] CenterTcxxiwzCDVPFFTPCO7726-82-83 18:46:00 Test Item Value Reference Range Interpretation Comments Hgb (test code = Hgb) 14.4 14.0-18.0 [facility] CenterLaatphqKKKGXNSKXB8789-67-50 18:46:00 Test Item Value Reference Range Interpretation Comments WBC (test code = WBC) 5.2 3.7-10.4 [facility] CenterLlmcyhiVNGPAXPAPF0180-59-94 18:46:00 Test Item Value Reference Range Interpretation Comments MCH (test code = MCH) 29.8 pg 27.0-31.0 [facility] CenterNztdytkNLUJGSATDH6571-42-28 18:46:00 Test Item Value Reference Range Interpretation Comments MCV (test code = MCV) 92.0 80.0-94.0 [facility] CenterZpiyovqKWTVOJIFDH4460-75-13 18:46:00 Test Item Value Reference Range Interpretation Comments Hct (test code = Hct) 44.5 42.0-54.0 [facility]KikfuytXBIAPIWESI7320-72-57 18:46:00 Test Item Value Reference Range Interpretation Comments MCHC (test code = MCHC) 32.4 32.0-36.0 [facility] EwvbyjoENPVOQDXYF1962 18:46:00 Test Item Value Reference Range Interpretation Comments [place]-Hep C Ab (test Negative *NA*(07/22/14 code = [place]-Hep C 1:46 PM) Ab) [facility] AND [id number] 18:46:00 Test Item Value Reference Range Interpretation Comments UA Urobilinogen (test code = UA <=1.0 mg/dL 0.1-1.0 Urobilinogen) [facility] AND [id number] 18:46:00 Test Item Value Reference Range Interpretation Comments UA Sq Epi (test code = UA Sq Epi) None Seen [facility] AND [id number] 18:46:00 Test Item Value Reference Range Interpretation Comments UA Leuk Est (test Negative (07/22/14 1:46 code = UA Leuk Est) PM) [facility] AND [id number] 18:46:00 Test Item Value Reference Range Interpretation Comments UA Nitrite (test code Negative (07/22/14 1:46 = UA Nitrite) PM) [facility] AND [id number] 18:46:00 Test Item Value Reference Range Interpretation Comments UA Blood (test code = Negative (07/22/14 1:46 UA Blood) PM) [facility] AND [id number] 18:46:00 Test Item Value Reference Range Interpretation Comments UA Ketones (test code = UA Negative mg/dL Ketones) [facility] AND [id number] 18:46:00 Test Item Value Reference Range Interpretation Comments UA Bili (test code = Negative *NA*(07/22/14 UA Bili) 1:46 PM) [facility] AND [id number] 18:46:00 Test Item Value Reference Range Interpretation Comments UA Bacteria (test code = UA Occasional /HPF Bacteria) [facility] AND [id number] 18:46:00 Test Item Value Reference Range Interpretation Comments UA RBC (test code = no gt See_Comment [Automa elizabeth message] The UA RBC) system which ge nerated this result transmit elizabeth reference range : <=2. The reference range was not used to interpr et this result as margaret l/abnormal. [facility] AND [id number] 18:46:00 Test Item Value Reference Range Interpretation Comments UA WBC (test code = 1 See_Comment [Automa elizabeth message] The UA WBC) system which ge nerated this result transmit elizabeth reference range : <=5. The reference range was not used to interpr et this result as margaret l/abnormal. [facility] AND [id number] 18:46:00 Test Item Value Reference Range Interpretation Comments UA Glucose (test code = UA Glucose) 30 mg/dL [facility] AND [id number] 18:46:00 Test Item Value Reference Range Interpretation Comments UA Protein (test code = UA Negative mg/dL Protein) [facility] AND [id number] 18:46:00 Test Item Value Reference Range Interpretation Comments UA pH (test code = UA pH) 6.5 5.0-8.0 [facility] AND [id number] 18:46:00 Test Item Value Reference Range Interpretation Comments UA Turbidity (test code = Clear (07/22/14 1:46 UA Turbidity) PM) [facility] AND [id number] 18:46:00 Test Item Value Reference Range Interpretation Comments UA Spec Grav (test code = UA Spec Grav) 1.010 [facility] AND [id number] 18:46:00 Test Item Value Reference Range Interpretation Comments UA Color (test code = Light Yellow UA Color) *NA*(07/22/14 1:46 PM) [facility]annCHEM [id number] 18:46:00 Test Item Value Reference Range Interpretation Comments Magnesium Lvl (test code = Magnesium 1.8 1.8-2.4 Lvl) [facility]NqqdlnsICACSFTBHQNC2075-68-66 18:46:00 Test Item Value Reference Range Interpretation Comments AGAP (test code = AGAP) 13.2 10.0-20.0 [facility] HospitalHkawarjTLRHXBGMGKWV5267-69-35 18:46:00 Test Item Value Reference Range Interpretation Comments B/C Ratio (test code = B/C Ratio) 18 6-25 [facility]TppzhuwHWEAQSGMWSZT4465-31-47 18:46:00 Test Item Value Reference Range Interpretation Comments A/G Ratio (test code = A/G Ratio) 1.1 0.7-1.6 [facility] HospitalAagqhjdYPPKEGMKRCYP1025-27-61 18:46:00 Test Item Value Reference Range Interpretation Comments Globulin (test code = Globulin) 3.3 2.0-4.0 [facility] HospitalTxsfqcfWANMFMAAVPXS6524-56-37 18:46:00 Test Item Value Reference Range Interpretation Comments eGFR (test code = eGFR) 99 [facility] HospitalFblvidkKZSFFHAUFHWK5572-83-27 18:46:00 Test Item Value Reference Range Interpretation Comments Calcium Lvl (test code = Calcium Lvl) 9.0 8.5-10.5 [facility] HospitalKxcfutaFWXINBJNNVQK3072-82-39 18:46:00 Test Item Value Reference Range Interpretation Comments Chloride Lvl (test code = Chloride Lvl) 106 95-109 [facility] HospitalLwmzotoEWKOZIZZELTQ9581-11-49 18:46:00 Test Item Value Reference Range Interpretation Comments Creatinine Lvl (test code = Creatinine 0.9 0.5-1.4 Lvl) [facility] HospitalHpdiwixXAOEEBOLYHXG4745-49-42 18:46:00 Test Item Value Reference Range Interpretation Comments Potassium Lvl (test code = Potassium 4.2 3.5-5.1 Lvl) [facility] HospitalXmjmbanHOMORBMQNKNI7678-39-80 18:46:00 Test Item Value Reference Range Interpretation Comments Sodium Lvl (test code = Sodium Lvl) 139 135-145 [facility] HospitalTrwclmaOQDMOCMKCTIM6022-40-55 18:46:00 Test Item Value Reference Range Interpretation Comments CO2 (test code = CO2) 24 24-32 [facility] HospitalMkdqjshLAARXUPTPAKC6233-09-31 18:46:00 Test Item Value Reference Range Interpretation Comments BUN (test code = BUN) 16 7-22 [facility] HospitalDcricajGDAFZJRWPXEQ6041-15-59 18:46:00 Test Item Value Reference Range Interpretation Comments Glucose Lvl (test code = Glucose Lvl) 141 70-99 [facility] HospitalYbkmchuRHPVURWBNCOM6855-22-52 18:46:00 Test Item Value Reference Range Interpretation Comments Albumin Lvl (test code = Albumin Lvl) 3.6 3.5-5.0 [facility] HospitalMylhlqdBUDELIFLABNM8567-87-39 18:46:00 Test Item Value Reference Range Interpretation Comments Alk Phos (test code = Alk Phos) 65 39-136 [facility] HospitalEpeqvdnDWXDOEJELCTR5559-15-03 18:46:00 Test Item Value Reference Range Interpretation Comments Bili Total (test code = Bili Total) 0.3 0.2-1.3 [facility] HospitalAypiacpSISKQVTDCFZI5737-83-25 18:46:00 Test Item Value Reference Range Interpretation Comments ALT (test code = ALT) 100 See_Comment [Auto mated message] The system which ge nerated this result transmit elizabeth reference range : <=65. The reference range was not used to interpr et this result as margaret l/abnormal. [facility] HospitalDeickegHAZQXTLOUSMI5494-44-94 18:46:00 Test Item Value Reference Range Interpretation Comments AST (test code = AST) 53 See_Comment [Auto mated message] The system which ge nerated this result transmit elizabeth reference range : <=37. The reference range was not used to interpr et this result as margaret l/abnormal. [facility] HospitalTrfvpuxHMPOCYAUKVEX0195-73-91 18:46:00 Test Item Value Reference Range Interpretation Comments Total Protein (test code = Total 6.9 6.4-8.4 Protein) [facility]JexujslGLDKUEHHXE4462-69-32 18:46:00 Test Item Value Reference Range Interpretation Comments Eosinophils (test code = 4.2 See_Comment [A utomated message] The Eosinophils) system which ge nerated this result tra nsmitted reference range : <=4.0. The reference r mitra was not used to int erpret this result as normal/abnormal . [facility] CenterMvefqqeVEHECFZJNI7914-96-98 18:46:00 Test Item Value Reference Range Interpretation Comments Segs (test code = Segs) 56.4 45.0-75.0 [facility] CenterLxamkiwZTHJQXQYSR8980-86-52 18:46:00 Test Item Value Reference Range Interpretation Comments Monocytes (test code = Monocytes) 10.3 2.0-12.0 [facility] CenterMidghnlFTUDQKRMHJ4704-63-94 18:46:00 Test Item Value Reference Range Interpretation Comments Lymphocytes (test code = Lymphocytes) 28.0 20.0-40.0 [facility] CenterRnwkhfqUZCOWTSJME1194-19-63 18:46:00 Test Item Value Reference Range Interpretation Comments Monocytes # (test code 0.5 See_Comment [Aut omated message] The = Monocytes #) system which generated this result tra nsmitted reference range : <=0.8. The reference r mitra was not used to int erpret this result as normal/abnormal . [facility] CenterXmvxbcyIHCKGJRXVH1860-36-81 18:46:00 Test Item Value Reference Range Interpretation Comments Basophils (test code = 1.1 See_Comment [Aut omated message] The Basophils) system which ge nerated this result tra nsmitted reference range : <=1.0. The reference r mitra was not used to int erpret this result as normal/abnormal . [facility] CenterAjfihyhJHCELZFMSP2162-46-55 18:46:00 Test Item Value Reference Range Interpretation Comments Lymphocytes # (test code = Lymphocytes 1.5 1.0-5.5 #) [facility] CenterOybmljuIIDEWYORCF9304-02-71 18:46:00 Test Item Value Reference Range Interpretation Comments Segs-Bands # (test code = Segs-Bands #) 2.9 1.5-8.1 [facility] CenterXcpfeqpTIFUISBUYZ7539-62-28 18:46:00 Test Item Value Reference Range Interpretation Comments Eosinophils # (test code 0.2 See_Comment [A utomated message] The = Eosinophils #) system whic h generated this result tra nsmitted reference range : <=0.5. The reference r mitra was not used to int erpret this result as normal/abnormal . [facility] CenterNmewuetJOSDGCHIZX4871-64-87 18:46:00 Test Item Value Reference Range Interpretation Comments Basophils # (test code 0.1 See_Comment [Aut omated message] The = Basophils #) system which generated this result tra nsmitted reference range : <=0.2. The reference r mitra was not used to int erpret this result as normal/abnormal . [facility] CenterAwnxnmrZYDXQIWUAF1587-87-00 18:46:00 Test Item Value Reference Range Interpretation Comments PT (test code = PT) 11.2 s 12.0-14.7 [facility] CenterCtmyeoeZTPDTYTLLK9904-10-85 18:46:00 Test Item Value Reference Range Interpretation Comments INR (test code = INR) 0.82 0.85-1.17 [facility] CenterSbrhpljAOAMKYSGSQ4760-89-14 18:46:00 Test Item Value Reference Range Interpretation Comments PTT (test code = PTT) 28.6 s 22.9-35.8 [facility]LnylzilXZWQAAWUCQ0765-23-59 18:46:00 Test Item Value Reference Range Interpretation Comments MPV (test code = MPV) 8.1 7.4-10.4 [facility] NortheastVypetjsFVIHMVFDPJ3231-37-47 18:46:00 Test Item Value Reference Range Interpretation Comments Platelet (test code = Platelet) 301 133-450 [facility] NortheastVzhslatWYDPPFPYSZ2269-81-34 18:46:00 Test Item Value Reference Range Interpretation Comments RDW (test code = RDW) 14.5 11.5-14.5 [facility] NortheastVkwatzlGHAFQUFBLJ5705-27-70 18:46:00 Test Item Value Reference Range Interpretation Comments RBC (test code = RBC) 4.84 4.70-6.10 [facility] NortheastTayygypXWXIAPHGYS5019-57-46 18:46:00 Test Item Value Reference Range Interpretation Comments Hgb (test code = Hgb) 14.4 14.0-18.0 [facility] NortheastYwybchvCKNTBVHGHP6459-63-70 18:46:00 Test Item Value Reference Range Interpretation Comments WBC (test code = WBC) 5.2 3.7-10.4 [facility] NortheastJdzsewbWTUIWKYDOP1394-21-75 18:46:00 Test Item Value Reference Range Interpretation Comments MCH (test code = MCH) 29.8 pg 27.0-31.0 [facility]SnojrilXNHDUDGALE6906-48-63 18:46:00 Test Item Value Reference Range Interpretation Comments MCV (test code = MCV) 92.0 80.0-94.0 [facility]woodQondawrZPDCYTSOPM5357-19-10 18:46:00 Test Item Value Reference Range Interpretation Comments Hct (test code = Hct) 44.5 42.0-54.0 [facility]woodMaajwazACDTAXHHND5467-08-50 18:46:00 Test Item Value Reference Range Interpretation Comments MCHC (test code = MCHC) 32.4 32.0-36.0 [facility] NortheastMhrbirdIKCDPILQUD7695-52-36 18:46:00 Test Item Value Reference Range Interpretation Comments [place]-Hep C Ab (test Negative *NA*(07/22/14 code = [place]-Hep C 1:46 PM) Ab) [facility] AND [id number] 18:46:00 Test Item Value Reference Range Interpretation Comments UA Urobilinogen (test code = UA <=1.0 mg/dL 0.1-1.0 Urobilinogen) [facility] AND [id number] 18:46:00 Test Item Value Reference Range Interpretation Comments UA Sq Epi (test code = UA Sq Epi) None Seen [facility] AND [id number] 18:46:00 Test Item Value Reference Range Interpretation Comments UA Leuk Est (test Negative (07/22/14 1:46 code = UA Leuk Est) PM) [facility] AND [id number] 18:46:00 Test Item Value Reference Range Interpretation Comments UA Nitrite (test code Negative (07/22/14 1:46 = UA Nitrite) PM) [facility] AND [id number] 18:46:00 Test Item Value Reference Range Interpretation Comments UA Blood (test code = Negative (07/22/14 1:46 UA Blood) PM) [facility] AND [id number] 18:46:00 Test Item Value Reference Range Interpretation Comments UA Ketones (test code = UA Negative mg/dL Ketones) [facility] AND [id number] 18:46:00 Test Item Value Reference Range Interpretation Comments UA Bili (test code = Negative *NA*(07/22/14 UA Bili) 1:46 PM) [facility] AND [id number] 18:46:00 Test Item Value Reference Range Interpretation Comments UA Bacteria (test code = UA Occasional /HPF Bacteria) [facility] AND [id number] 18:46:00 Test Item Value Reference Range Interpretation Comments UA RBC (test code = no gt See_Comment [Automa elizabeth message] The UA RBC) system which ge nerated this result transmit elizabeth reference range : <=2. The reference range was not used to interpr et this result as margaret l/abnormal. [facility] AND [id number] 18:46:00 Test Item Value Reference Range Interpretation Comments UA WBC (test code = 1 See_Comment [Automa elizabeth message] The UA WBC) system which ge nerated this result transmit elizabeth reference range : <=5. The reference range was not used to interpr et this result as margaret l/abnormal. [facility] AND [id number] 18:46:00 Test Item Value Reference Range Interpretation Comments UA Glucose (test code = UA Glucose) 30 mg/dL [facility] AND [id number] 18:46:00 Test Item Value Reference Range Interpretation Comments UA Protein (test code = UA Negative mg/dL Protein) [facility] AND [id number] 18:46:00 Test Item Value Reference Range Interpretation Comments UA pH (test code = UA pH) 6.5 5.0-8.0 [facility] AND [id number] 18:46:00 Test Item Value Reference Range Interpretation Comments UA Turbidity (test code = Clear (07/22/14 1:46 UA Turbidity) PM) [facility] AND [id number] 18:46:00 Test Item Value Reference Range Interpretation Comments UA Spec Grav (test code = UA Spec Grav) 1.010 [facility] AND [id number] 18:46:00 Test Item Value Reference Range Interpretation Comments UA Color (test code = Light Yellow UA Color) *NA*(07/22/14 1:46 PM) [facility] [id number] 18:46:00 Test Item Value Reference Range Interpretation Comments Magnesium Lvl (test code = Magnesium 1.8 1.8-2.4 Lvl) [facility] HospitalMedjiadTFLEZGQDNJST5186-51-52 18:46:00 Test Item Value Reference Range Interpretation Comments AGAP (test code = AGAP) 13.2 10.0-20.0 [facility] HospitalDcfostjKVOLIDFGXVQY5453-74-20 18:46:00 Test Item Value Reference Range Interpretation Comments B/C Ratio (test code = B/C Ratio) 18 6-25 [facility] HospitalFblmnkwVYSWWNQGLJJD9755-84-03 18:46:00 Test Item Value Reference Range Interpretation Comments A/G Ratio (test code = A/G Ratio) 1.1 0.7-1.6 [facility] HospitalYweccntEXEGLDDZFWCZ4963-92-09 18:46:00 Test Item Value Reference Range Interpretation Comments Globulin (test code = Globulin) 3.3 2.0-4.0 [facility] HospitalXtbyykkZXFPCVESQODN6100-76-52 18:46:00 Test Item Value Reference Range Interpretation Comments eGFR (test code = eGFR) 99 [facility] HospitalMmmuzijWSGQOPRHGNHZ7345-58-97 18:46:00 Test Item Value Reference Range Interpretation Comments Calcium Lvl (test code = Calcium Lvl) 9.0 8.5-10.5 [facility] HospitalIcgbftjGCYNQFGRPQVC7813-75-12 18:46:00 Test Item Value Reference Range Interpretation Comments Chloride Lvl (test code = Chloride Lvl) 106 95-109 [facility] HospitalOmplrhcZKNGUMLXTKHR3264-94-41 18:46:00 Test Item Value Reference Range Interpretation Comments Creatinine Lvl (test code = Creatinine 0.9 0.5-1.4 Lvl) [facility] HospitalLmstkvhRAHQCNBRGPAR7705-89-56 18:46:00 Test Item Value Reference Range Interpretation Comments Potassium Lvl (test code = Potassium 4.2 3.5-5.1 Lvl) [facility] HospitalDzjsbieTSREPPCUEVPI4734-40-82 18:46:00 Test Item Value Reference Range Interpretation Comments Sodium Lvl (test code = Sodium Lvl) 139 135-145 [facility] HospitalSdgsaksCOKQKGQMDJSO0814-10-32 18:46:00 Test Item Value Reference Range Interpretation Comments CO2 (test code = CO2) 24 24-32 [facility] HospitalVrjtqmhNYPLQJTFFMMP8850-97-03 18:46:00 Test Item Value Reference Range Interpretation Comments BUN (test code = BUN) 16 7-22 [facility] HospitalCjonvfcXTYJGFAGXSOL5623-62-94 18:46:00 Test Item Value Reference Range Interpretation Comments Glucose Lvl (test code = Glucose Lvl) 141 70-99 [facility] HospitalQjcbfzmPZNZOCWKWEYI4287-15-63 18:46:00 Test Item Value Reference Range Interpretation Comments Albumin Lvl (test code = Albumin Lvl) 3.6 3.5-5.0 [facility] HospitalYanftttSAXCYGTZWOZX0283-65-21 18:46:00 Test Item Value Reference Range Interpretation Comments Alk Phos (test code = Alk Phos) 65 39-136 [facility] HospitalZfrglwkZKWSHFJMVFHQ5950-80-00 18:46:00 Test Item Value Reference Range Interpretation Comments Bili Total (test code = Bili Total) 0.3 0.2-1.3 [facility] HospitalKdjnpzdYYZQVPJEPWRO8110-36-19 18:46:00 Test Item Value Reference Range Interpretation Comments ALT (test code = ALT) 100 See_Comment [Auto mated message] The system which ge nerated this result transmit elizabeth reference range : <=65. The reference range was not used to interpr et this result as margaret l/abnormal. [facility] HospitalIjkrrurSHSQYEQDVYIW6724-23-13 18:46:00 Test Item Value Reference Range Interpretation Comments AST (test code = AST) 53 See_Comment [Auto mated message] The system which ge nerated this result transmit elizabeth reference range : <=37. The reference range was not used to interpr et this result as margaret l/abnormal. [facility] HospitalQuhyuxuIGXMGPDBCMFF1156-68-02 18:46:00 Test Item Value Reference Range Interpretation Comments Total Protein (test code = Total 6.9 6.4-8.4 Protein) [facility] CenterAzshqcyUTEXTLAOJY7374-00-01 18:46:00 Test Item Value Reference Range Interpretation Comments Eosinophils (test code = 4.2 See_Comment [A utomated message] The Eosinophils) system which ge nerated this result tra nsmitted reference range : <=4.0. The reference r mitra was not used to int erpret this result as normal/abnormal . [facility] CenterVplippjQLYDGXVDWK1120-44-06 18:46:00 Test Item Value Reference Range Interpretation Comments Segs (test code = Segs) 56.4 45.0-75.0 [facility] CenterElidlhpZTKIMEWLXN6946-89-43 18:46:00 Test Item Value Reference Range Interpretation Comments Monocytes (test code = Monocytes) 10.3 2.0-12.0 [facility] CenterRakfwjeJCORMPNCMH0549-68-25 18:46:00 Test Item Value Reference Range Interpretation Comments Lymphocytes (test code = Lymphocytes) 28.0 20.0-40.0 [facility] CenterUnvpwbnXTTUMDEURH0547-72-76 18:46:00 Test Item Value Reference Range Interpretation Comments Monocytes # (test code 0.5 See_Comment [Aut omated message] The = Monocytes #) system which generated this result tra nsmitted reference range : <=0.8. The reference r mitra was not used to int erpret this result as normal/abnormal . [facility] CenterRhartigMOCMMYCQWB1954-65-51 18:46:00 Test Item Value Reference Range Interpretation Comments Basophils (test code = 1.1 See_Comment [Aut omated message] The Basophils) system which ge nerated this result tra nsmitted reference range : <=1.0. The reference r mitra was not used to int erpret this result as normal/abnormal . [facility] CenterEqxvkbmIEEXEZQIGF9613-44-49 18:46:00 Test Item Value Reference Range Interpretation Comments Lymphocytes # (test code = Lymphocytes 1.5 1.0-5.5 #) [facility] CenterCiltmczAEPPRPKRFA9924-61-64 18:46:00 Test Item Value Reference Range Interpretation Comments Segs-Bands # (test code = Segs-Bands #) 2.9 1.5-8.1 [facility] CenterKdtojhnEGANTGHBRV4383-40-57 18:46:00 Test Item Value Reference Range Interpretation Comments Eosinophils # (test code 0.2 See_Comment [A utomated message] The = Eosinophils #) system whic h generated this result tra nsmitted reference range : <=0.5. The reference r mitra was not used to int erpret this result as normal/abnormal . [facility] CenterLqeitqhRJYGLZKGER6682-01-76 18:46:00 Test Item Value Reference Range Interpretation Comments Basophils # (test code 0.1 See_Comment [Aut omated message] The = Basophils #) system which generated this result tra nsmitted reference range : <=0.2. The reference r mitra was not used to int erpret this result as normal/abnormal . [facility] CenterIvcjwnlIDJWAHRGGH1922-29-11 18:46:00 Test Item Value Reference Range Interpretation Comments PT (test code = PT) 11.2 s 12.0-14.7 [facility] CenterQobjcreOKPSLCMCPI0434-95-04 18:46:00 Test Item Value Reference Range Interpretation Comments INR (test code = INR) 0.82 0.85-1.17 [facility] CenterUfxladtWXFOZMPOBO4880-63-39 18:46:00 Test Item Value Reference Range Interpretation Comments PTT (test code = PTT) 28.6 s 22.9-35.8 [facility] CenterPynubpxAXJZGTRCSV5421-43-68 18:46:00 Test Item Value Reference Range Interpretation Comments MPV (test code = MPV) 8.1 7.4-10.4 [facility] CenterUnowwixGPLJFCIQRA9544-09-01 18:46:00 Test Item Value Reference Range Interpretation Comments Platelet (test code = Platelet) 301 133-450 [facility] CenterXgxpqboPHZENOPAJR8181-59-06 18:46:00 Test Item Value Reference Range Interpretation Comments RDW (test code = RDW) 14.5 11.5-14.5 [facility] CenterLuohvisTUNTETLEJY5272-36-04 18:46:00 Test Item Value Reference Range Interpretation Comments RBC (test code = RBC) 4.84 4.70-6.10 [facility]EsxhgarUGRRQWIZBA1348-83-33 18:46:00 Test Item Value Reference Range Interpretation Comments Hgb (test code = Hgb) 14.4 14.0-18.0 [facility] HospitalNwwsqlpIVFONPYFNI0777-75-67 18:46:00 Test Item Value Reference Range Interpretation Comments WBC (test code = WBC) 5.2 3.7-10.4 [facility] HospitalTsmzrlrKDEOHXTUDK5568-31-13 18:46:00 Test Item Value Reference Range Interpretation Comments MCH (test code = MCH) 29.8 pg 27.0-31.0 [facility] CenterGgiiysfFOJTLDCDUL1050-92-87 18:46:00 Test Item Value Reference Range Interpretation Comments MCV (test code = MCV) 92.0 80.0-94.0 [facility] CenterInlokpmOBJGJZJTPW1242-38-09 18:46:00 Test Item Value Reference Range Interpretation Comments Hct (test code = Hct) 44.5 42.0-54.0 [facility] HospitalNkcyqvvVPCZIABVPF9082-44-41 18:46:00 Test Item Value Reference Range Interpretation Comments MCHC (test code = MCHC) 32.4 32.0-36.0 [facility]QmtcmovIBNQNSSTIE7945-37-83 18:46:00 Test Item Value Reference Range Interpretation Comments [place]-Hep C Ab (test Negative *NA*(07/22/14 code = [place]-Hep C 1:46 PM) Ab) [facility] AND [id number] 18:46:00 Test Item Value Reference Range Interpretation Comments UA Urobilinogen (test code = UA <=1.0 mg/dL 0.1-1.0 Urobilinogen) [facility] AND [id number] 18:46:00 Test Item Value Reference Range Interpretation Comments UA Sq Epi (test code = UA Sq Epi) None Seen [facility] AND [id number] 18:46:00 Test Item Value Reference Range Interpretation Comments UA Leuk Est (test Negative (07/22/14 1:46 code = UA Leuk Est) PM) [facility] AND [id number] 18:46:00 Test Item Value Reference Range Interpretation Comments UA Nitrite (test code Negative (07/22/14 1:46 = UA Nitrite) PM) [facility] AND [id number] 18:46:00 Test Item Value Reference Range Interpretation Comments UA Blood (test code = Negative (07/22/14 1:46 UA Blood) PM) [facility] AND [id number] 18:46:00 Test Item Value Reference Range Interpretation Comments UA Ketones (test code = UA Negative mg/dL Ketones) [facility] AND [id number] 18:46:00 Test Item Value Reference Range Interpretation Comments UA Bili (test code = Negative *NA*(07/22/14 UA Bili) 1:46 PM) [facility] AND [id number] 18:46:00 Test Item Value Reference Range Interpretation Comments UA Bacteria (test code = UA Occasional /HPF Bacteria) [facility] AND [id number] 18:46:00 Test Item Value Reference Range Interpretation Comments UA RBC (test code = no gt See_Comment [Automa elizabeth message] The UA RBC) system which ge nerated this result transmit elizabeth reference range : <=2. The reference range was not used to interpr et this result as margaret l/abnormal. [facility] AND [id number] 18:46:00 Test Item Value Reference Range Interpretation Comments UA WBC (test code = 1 See_Comment [Automa elizabeth message] The UA WBC) system which ge nerated this result transmit elizabeth reference range : <=5. The reference range was not used to interpr et this result as margaret l/abnormal. [facility] AND [id number] 18:46:00 Test Item Value Reference Range Interpretation Comments UA Glucose (test code = UA Glucose) 30 mg/dL [facility] AND [id number] 18:46:00 Test Item Value Reference Range Interpretation Comments UA Protein (test code = UA Negative mg/dL Protein) [facility] AND [id number] 18:46:00 Test Item Value Reference Range Interpretation Comments UA pH (test code = UA pH) 6.5 5.0-8.0 [facility] AND [id number] 18:46:00 Test Item Value Reference Range Interpretation Comments UA Turbidity (test code = Clear (07/22/14 1:46 [facility] Turbidity) PM) [facility] [id number] 18:46:00 Test Item Value Reference Range Interpretation Comments UA Spec Grav (test code = UA Spec Grav) 1.010 [facility] [id number] 18:46:00 Test Item Value Reference Range Interpretation Comments UA Color (test code = Light Yellow UA Color) *NA*(07/22/14 1:46 PM) [facility] [id number] 18:46:00 Test Item Value Reference Range Interpretation Comments Magnesium Lvl (test code = Magnesium 1.8 1.8-2.4 Lvl) [facility] RqyacltKBGKQPNCFXTC4725-83-96 18:46:00 Test Item Value Reference Range Interpretation Comments AGAP (test code = AGAP) 13.2 10.0-20.0 [facility] Notes Date/Time Note Provider Source 2017-01-31 21:00:10-00:00 [facility] Discharge Summary PATIENT NAME: CHARO KAYE PHYSICIAN: Royal Reed Admitted: MR NUMBER: [id number] DISCHARGED: 01/04/2017 12:2 2:00 DATE OF ADMISSION: 12/23/2016 DATE OF DISCHARGE: 01/04/2017 REASON FOR ADMISSION: The patient was admitted for a chief complaint o f disorganized thoughts and behaviors, apparent delusions. He was brought to [facility] by the [facility] intermediate after he was arrested on criminal mi schief. While in intermediate, he displayed disorganized behavior and disorganized thoughts, [...] receives Social Security, re cently released from [facility] and poor social support. PRINCIPAL PROCEDURES: Psychopharmacotherapy. [...] resolution of his Patient Name: CHARO KAYE [id number] admitting symptoms, of disorganized behavior, di sorganized [...] and attention, both grossly intact. Fund of Knowled e: Appropriate for age and education. His gait was normal. LABORATORY DATA: No relevant labs on discharge. DRUG REACTIONS OR INTERACTIONS: It became apparent that on admission, the patien yary was having audiovisual and tactile hallucinations in [...] RESTRICTIONS: None. FOLLOWUP: Patient Name: CHARO KAYE [id number] The patient has a followup appointment scheduled with [facility] in [place] on 01/23/2017 at 1:30 p.m. and has been given specific instructions on how to get to the appointment. DISPOSITION: Mr. Charo Kaye is currently stable and tolerati ng all his medications. We are discharging the patient to home. The patient 's prognosis is poor as he has a history of noncompliance. However, if he is able to stay compliant with his psychotropic medications and consistent with outpatient followup, he should do very well. He is also encouraged to ab stain from illicit drug use and alcohol use and to not discontinue any of hi s psychotropic medications at the guidance of his outpatient psychiatrist. The patient has also met with the social professionals to obtain appropriate followup report. The importance on following through with this plan has been review ed with the patient. The patient understands that compliance will be cruc ial to his recovery. He has been given the [facility] Crisis hotline number and the information about the [facility], if he wishes to obtain t herapy. MD Ramana Winn MD MH/SHE TD: 01/16/2017 02:03 CC:Ramana Shea MD Electronically Authenticated by: Royal Miller MD On 01/17/2017 02:55 PM [employer] Electronically Authenticated by: Ramana Shea MD On 02/15/2017 12:47 PM [employer] 2017-01-06 13:35:23-00:00 [facility] Progress Note PATIENT NAME: CHARO KYAE PHYSICIAN: Shiva hopper MD Admitted: MR NUMBER: [id number] DISCHARGED: DATE OF SERVICE: 12/30/2016 TIME SEEN: 16:40. SUBJECTIVE: I was asked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
--- NOTE | 2022-07-20 05:11 | EDPHYS ---
Physician Documentation [facility] Name: Kevin Kaye Age: 61 yrs Sex: Male : 1960 Arrival Date: 07/19/2022 Time: 21:43 Bed IW7 Private MD: ED Physician Akhil Finnegan HPI: 07/19 22:13 This 61 yrs old Male presents to ER via Unassigned with complaints of Leg sp4 Pain. 22:13 Patient presents with complaint of the right leg pain. This is patient's fifth visit sp4 today to the emergency department for the same thing. . 22:15 Patient has history of multiple medical problems and it was diagnosed with bilateral sp4 DVTs lower extremities. Patient just left refusing medical care approximately 1 hour ago. . 07/20 07:17 Work-up at 07/16/2022 revealed hemoglobin 9.4, normal WBC, normal platelets. Chemistry sp4 panel basically unremarkable, creatinine 0.83, globulin 3.7. Negative troponin 5.8. Normal magnesium. CT abdomen and pelvis was accomplished on 07/16/2022 at 6:46 AM and has revealed following problems 2.0 x 1.6 centimeter lucent lesion involving left lateral aspect of T11 vertebra bilaterally extending to into the adjacent pedicle. Moderate degenerative changes right hip with sclerotic changes subchondral cyst formation, superior femoral head cortical collapse. There is partially visualized thrombus in the right common iliac pleural, femoral vein as well as within the left femoral vein. No pulmonary pathology. Interval inferior vena cava stent redemonstrated with nonocclusive thrombus noted along the medial margin of the stent lumen. Redemonstrated 2 x 1.6 cm lucent lesion involving left lateral aspect of the T11 vertebral barely extending into the adjacent pedicle. 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 Characterization by contrast-enhanced MRI or PET scan. Moderate degenerative changes right hip. Slight superior humeral head cortical collapse. Moderate sized fatty mass with internal septations measuring 8 x 5 x 9 cm immediately lateral to the right inguinal canal. Suspicious for lipoma consider further characterization by multiphase MRI to evaluate for internal enhancement. Partially visualized thrombus noted in the right common iliac through common female vein as well as with the left femoral vein , no pulmonary embolism. Ultrasound lower extremity arterial unilateral. Real-time duplex ultrasound of the right lower extremity arteries interrogating B-mode two-dimensional vascular structures. Doppler spectral analysis and color flow Doppler imaging. There is a right DPA demonstrates decreased velocities and monophasic waveforms suggestive of nonvisualized proximal stenosis. No occlusion or other hemodynamically significant stenosis of the right lower extremity. . Ultrasound lower extremity venous 07/16/2022 has revealed, bilateral lower extremity DVTs with occlusive thrombus noted in the proximal mid left femoral vein. Nonocclusive thrombus noted in the right common femoral bilateral mid to distal nonocclusive thrombus bilateral great saphenous veins, patient was earmarked for transfer to [facility] in [place] for management of his multiple clotting problems but he has declined transfer and opted to walk out of the emergency room. Patient has returned about an hour later with the police escort because he was walking down the road and police picked him up for safety purposes. . Historical: - PMHx: : Anxiety; Bipolar disorder; Depression; DVT; Schizophrenia; sp4 - Family history:: not pertinent. ROS: 07:27 Constitutional: Negative for fever, chills, and weight loss, Eyes: Negative for injury, sp4 pain, redness, and discharge, ENT: Negative for injury, pain, and discharge, Neck: Negative for injury, pain, and swelling, Cardiovascular: Negative for chest pain, palpitations, and edema, Respiratory: Negative for shortness of breath, cough, wheezing, and pleuritic chest pain, Abdomen/GI: Negative for abdominal pain, nausea, vomiting, diarrhea, and constipation, Back: Negative for injury and pain, : Negative for injury, bleeding, discharge, and swelling, MS/Extremity: Negative for injury and deformity, positive bilateral lower extremity pain also bilateral lower extremity edema Skin: Negative for injury, rash, and discoloration, Neuro: Negative for headache, weakness, numbness, tingling, and seizure, Psych: Negative for depression, anxiety, Allergy/Immunology: Negative for hives, rash, and allergies Endocrine: Negative for neck swelling, polydipsia, polyuria, polyphagia, and weight changes Hematologic/Lymphatic: Negative for swollen nodes, abnormal bleeding, and unusual bruising Exam: 07:27 Constitutional: This is a well developed, well nourished patient who is awake, alert, sp4 and in no acute distress. Head/Face: Normocephalic, atraumatic. Eyes: Pupils equal round and reactive to light, extra-ocular motions intact. Lids and lashes normal. Conjunctiva and sclera are not injected. Cornea within normal limits. Periorbital areas with no swelling, redness, or edema. ENT: Nares patent. No nasal discharge, no septal abnormalities noted. Tympanic membranes are normal and external auditory canals are clear. Oropharynx with no redness, swelling, or masses, exudates, or evidence of obstruction, uvula midline. Mucous membranes moist. Neck: Trachea midline, no thyromegaly or masses palpated, and no cervical lymphadenopathy. Supple, full range of motion without nuchal rigidity, or vertebral point tenderness. No Meningismus. Chest/axilla: Normal chest wall appearance and motion. Nontender with no deformity. No lesions are appreciated. Cardiovascular: Regular rate and rhythm with a normal S1 and S2. No gallops, murmurs, or rubs. Normal PMI, no JVD. No pulse deficits. Respiratory: Lungs have equal breath sounds bilaterally, clear to auscultation and percussion. No rales, rhonchi or wheezes noted. No increased work of breathing, no retractions or nasal flaring. Abdomen/GI: Soft, non-tender, with normal bowel sounds. No distension or tympany. No guarding or rebound. No evidence of tenderness throughout. Back: No spinal tenderness. No costovertebral tenderness. Skin: Warm, dry with normal turgor. Normal color with no rashes, no lesions, and no evidence of cellulitis. MS/ Extremity: Pulses equal, no cyanosis. Neurovascular intact. Full, normal range of motion. Bilateral lower extremity edema with pitting. Appears chronic Neuro: Awake and alert, GCS 15, oriented to person, place, time, and situation. Cranial nerves II-XII grossly intact. Motor strength 5/5 in all extremities. Sensory grossly intact. Psych: Awake, alert, with orientation to person, place and time. Patient is emotionally upset, irritable, uncooperative. MDM: 07/19 22:18 Patient medically screened. sp4 07/20 07:27 Differential diagnosis: contusion, abrasion, tendonitis. Data reviewed: vital signs, sp4 nurses notes, old medical records. ED course: Patient was explained that he has walked out 4 times already and refused care 4 times. This time patient will be ordered Geodon and Ativan for periodic agitation and [facility] be [facility] secondary to mild to moderate lower extremity blood clot burden. Patient initially agreed to transfer but then walked out of the emergency room unannounced. This time patient's status eloped.. 07:33 ED course: We made an attempt to locate patient on premises of the hospital but this sp4 was unsuccessful.. Administered Medications: No medications were administered Disposition Summary: 07/20/22 05:10 Eloped Disposition: after being seen by provider xin Reason: (see nurse's notes) kl Signatures: Melissa Gilbert RN RN Akhil Soto MD MD sp4 Corrections: (The following items were deleted from the chart) 07:27 07:27 PMHx: FACTOR 5; sp4 sp4
--- NOTE | 2022-07-20 05:11 | ER ---
Nurse's Notes [facility] Name: Kevin Kaye Age: 61 yrs Sex: Male : 1960 Arrival Date: 07/19/2022 Time: 21:43 Bed IW7 Private MD: Diagnosis: Presentation: 07/19 23:52 Chief complaint: Patient states: i am ready to be transferred for my leg clots. 07/20 00:30 Note pt called not in lobby. Note pt at triage requesting bed informed pt bed is now full encouraged to wait. 03:03 Note pt not in lobby. kl Historical: - PMHx: 07:27 Anxiety; Bipolar disorder; Depression; DVT; Schizophrenia; sp4 - Family history:: not pertinent. ED Course: 07/19 21:53 Patient arrived in ED. [email or web address] 22:06 Akhil Finnegan MD is Attending Physician. sp4 Administered Medications: No medications were administered Outcome: 07/20 05:10 Patient left the ED. kl Signatures: Melissa Gilbert RN RN Bryanna Carr jj6 Akhil Finnegan MD MD sp4 Corrections: (The following items were deleted from the chart) 03: 00:30 Note pt at triage requesting bed informed pt bed is now full encouraged to wait [facility] 07:27 PMHx: FACTOR 5; sp4 sp4
== END 2022-07-20 05:10 | disposition left against medical advice (07) ==
LOC: ER 21:43
DX: M79.661 Pain in right lower leg (principal); Z86.718 Personal history of other venous thrombosis and embolism

== ENCOUNTER 2022-07-21 02:43 | Emergency (ER) | payer OTHER ==
[2022-07-21] MEDS ORDERED: LORazepam 2 MG/ML VIAL ONE (02:58)
[2022-07-21] MEDS ORDERED: ZIPRASIDONE MESYLA 20 MG/VIAL IM ONE (02:59)
[2022-07-21] MEDS ORDERED: WATER FOR INJ,STERILE 10 ML ONE (02:59)
--- OUTSIDE RECORDS SUMMARY | 2022-07-21 03:14 | XMS REPORT | Continuity of Care Document ---
:1960 Author Organization [facility] t Address [address] [place] [address] Care Team Providers Name Role Phone SHEY VAN Primary Care Physician Unavailable [id number] Attending Clinician Unavailable IZABELA PHAM Attending Clinician Unavailable IZABELA PHAM Attending Clinician Unavailable LAWRENCE PETERSON Attending Clinician Unavailable LAWRENCE PETERSON Attending Clinician Unavailable ROBINA BECERRIL Attending Clinician Unavailable Robina Becerril MD Attending Clinician Kvng CORONADO, Elyssa Thornton Attending Clinician Unavailable ELLE JARRELL Attending Clinician Unavailable ANA TERRAZAS Attending Clinician Unavailable Ana Terrazas MD Attending Clinician RAMANA CRUZ Attending Clinician Unavailable Ángel Murray MD Attending Clinician Ramana Cruz MD Attending Clinician TRACEY TRINIDAD Attending Clinician Unavailable Hilda Miller MD Attending Clinician Tracey Trinidad DO Attending Clinician LAUREEN MOORE Attending Clinician Unavailable Kaden CARTER, Sunny Attending Clinician [phone] Fabienne CARTER, Olga Attending Clinician Laureen Moore MD Attending Clinician Doctor Unassigned, [place] Attending Clinician Unavailable ALLAN LYNCH Attending Clinician Unavailable Meche Perry Attending Clinician Luis Huerta DO Attending Clinician Jaye Palafox MD Attending Clinician Lance Neal DO Attending Clinician RENEE PAREKH Attending Clinician Unavailable WOO DURAN Attending Clinician Unavailable RODRIGO BLACKMON Attending Clinician Unavailable Rodrigo Benavidez Attending Clinician Carols Corbin MD Attending Clinician Dawson Choudhury MD Attending Clinician DAWSON CHOUDHURY Attending Clinician Unavailable DAWSON CHOUDHURY Attending Clinician Unavailable , [facility] Sleep Lab Bed Attending Clinician Unavailable Susan Manjarrez PA-C Attending Clinician SUSAN MANJARREZ Attending Clinician Unavailable DELROY FARAH Attending Clinician Unavailable Delroy Farah MD Attending Clinician [facility] Attending Clinician Unavailable Erma Morales RN Attending Clinician Unavailable MAGDALENE ROMERO Attending Clinician Unavailable Joel TURNING MACHINE OPERATOR HELPER, Magdalene Attending Clinician Joeysuma TURNING MACHINE OPERATOR HELPER, Lenstevesuma Attending Clinician CARLOS CORBIN Attending Clinician Unavailable Ladonan Bryant DO Attending Clinician MICHAEL GILL S Attending Clinician Unavailable Michael Fulton S Attending Clinician CLEVE_ Attending Clinician Unavailable BENITO LOPEZ Attending Clinician Unavailable Edgard Leo DO Attending Clinician Magali Curtis MD Attending Clinician Ted Lion MD Attending Clinician Allen Maravilla MD Attending Clinician Georgina Duncan MD Attending Clinician [phone] SIENNA POLK Attending Clinician Unavailable LADI RIBERA Attending Clinician Unavailable YASMINE BROOKE Attending Clinician Unavailable MD YASMINE BROOKE Attending Clinician Unavailable Pato Hill MD Attending Clinician Surgery, c General Attending Clinician Unavailable Sofia Malone MD Attending Clinician Surgery, [facility] Vascular Attending Clinician Unavailable Ramana Padron MD Attending Clinician RAMANA SHEA M.D., RAMANA Acevedo M.D. Attending Clinician Unavailable Christy Moya Attending Clinician [id number] Admitting Clinician Unavailable IZABELA PHAM Admitting Clinician Unavailable LAWRENCE PETERSON Admitting Clinician Unavailable ELLE JARRELL Admitting Clinician Unavailable RAMANA CRUZ Admitting Clinician Unavailable Ramana Cruz MD Admitting Clinician Hlida MILLER Admitting Clinician Unavailable OLGA ABRAHAM Admitting Clinician Unavailable ALLAN LYNCH Admitting Clinician Unavailable MICHAEL GILL Admitting Clinician Unavailable CARLOS CORBIN Admitting Clinician Unavailable CLEVE_ Admitting Clinician Unavailable Magali Curtis MD Admitting Clinician Perla CARTER, Georgina Key Admitting Clinician [phone] YASMINE BROOKE Admitting Clinician Unavailable MD YASMINE BROOKE Admitting Clinician Unavailable Pato Hill MD Admitting Clinician RAMANA SHEA M.D., RAMANA Acevedo Admitting Clinician Tasha ivey Payers Payer Name Policy Type Policy Number Effective Date Expiration Date S emmanuel [facility] [id number] [place] [id number] 2021 CLASSIC NO PREMIUM 00:00:00 HMO MEDICARE PART A [id number] 2003 00:00:00 [facility] [id number] [facility] 00:00:00 WELLCARE MAPS [id number] 2022 00:00:00 WELLCARE VALUE [id number] 2020 00:00:00 Problems Condition Condition Condition Status Onset Resolution Last Treating Co mments Source Name Details Category Date Date Treatment Clinician Date Cellulitis Cellulitis Disease Active U nivers of right of right 5-29 ity of lower lower 00:00: [place] extremity extremity 00 [facility] Acute Acute Disease Active [facility] metabolic metabolic 5-14 [facility] encephalop encephalop 00:00: [place]ical athy athy 00 Center Toxic Toxic Disease Active [facility] encephalop encephalop 5-14 Harpal kes athy athy 00:00: Medical 00 Center Hydronephr Hydronephr Disease Active [facility] osis osis 5-09 [facility] 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 4-14 ity of 00:00: [address] Branch DVT (deep DVT (deep Disease Active Uni vers venous venous 4-14 [place] 00 [facility] Branch Bilateral Bilateral Disease Active Uni vers sciatica sciatica 4-13 ity of 00:00: [place] 00 [facility] Branch Obesity Obesity Disease Active Univers (BMI [...] chronicity chronicity ally from request for surgery [id number] Lipoma of Lipoma of Disease Active Overview: Univers right right 4-12 Formattin ity of lower lower 00:00: g of this [place] extremity extremity 00 note Medi gordon might be Branch different from the original. Added automatic ally from request for surgery [id number] Lipoma of Lipoma of Disease Active Uni vers torso torso 4-06 ity of 00:00: [place] [address] Medical Branch Kamryn Kamryn Disease Active Univers 6-24 ity of 00:00: [place] [address] Medical Branch Rhabdomyol Rhabdomyol Disease Active U nivers ysis ysis 6-21 ity of 00:00: [place] [address] Medical Branch Presence Presence Disease Active Metho di of IVC of IVC [address] filter filter 00:00: Hospita 00 l Acute Acute Disease Active Methodi chest pain chest pain 9-15 st 00:00: Hospita 00 l Behavior Behavior Disease Active Unive rs problem problem 6-13 ity of 00:00: [place] [address] Medical Branch Cellulitis Cellulitis Disease Active U nivers and and 6-13 ity of abscess of [place] foot 00 [place] Alteration Alteration Disease Active U nivers consciousn consciousn 6-13 it y of ess ess 00:00: [place] [address] Medical Branch TESTING TESTING Diagnosis Active 2014-07-28 Memoria FOR DVT FOR DVT 07-22 14:06:00 l Active 00:00: [place] 07/22/2014 00 [facility] 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 2-16 [place] of disorder, disorder, [place] chronic 00 Medical condition condition Bran ch with acute with acute exacerbati exacerbati on on Hypertensi Hypertens Problem Active 2014-07-25 Memoria ve raisa 07:19:48 l disorder, disorder, Herm britt systemic systemic arterial arterial (disorder) (disorder) Active Problem 07/25/2014 [facility] History of Past Illness Condition Condition Condition Status Onset Resolution Last Treating Co mments Source Name Details Category Date Date Treatment Clinician Date Discharge Discharge Problem 2014-2014-07-25 2014-07-25 Memoria Diagnosis: Diagnosis: 07-22 07:19:48 07:19:48 l Chronic Chronic 05:00: [place] back pain back pain 00 07/22/2014 07/25/2014 [facility] Discharge Problem 2014-07-25 2014-07-25 Memoria Diagnosis: Discharge 07-22 07:19:48 07:19:48 l Peripheral Diagnosis: 05:00: He rmann edema Peripheral 00 edema 07/22/2014 07/25/2014 [facility] Allergies, Adverse Reactions, Alerts Allergy [...] [facility] Natural mother Diabetes [facility] Social History Social Habit Start Date Stop Date Quantity Comments Source Gender identity [facility] Sexual orientation [facility] History SDOH University o f Alcohol Std Drinks [place] [facility] History SDOH University o f Alcohol Binge [place] [facility] al Branch History SDOH Social Unive rsity of Connections [facility] Med ical Together Branch History SDOH Social Unive rsity of Connections [facility] Medical Branch History SDOH Social Unive rsity of Connections [place] [facility] Membership Branch History SDOH Social Unive rsity of Connections [place] [facility] Meetings Branch Exposure to 2022-07-01 2022-07-11 [...] Unive rsity of Connections Living 00:00:00 00:00:00 [place] [facility] History SDOH 2022-05-27 2022-05-27 0 University o f Physical Activity 00:00:00 00:00:00 [place] M edical DPW Branch History SDOH 2022-05-27 2022-05-27 0 University o f Physical Activity 00:00:00 00:00:00 [place] M edical MPS Branch History SDOH 2022-05-27 2022-05-27 5 University o f Financial 00:00:00 00:00:00 [place] [facility] History SDOH Food 2022-05-27 2022-05-27 1 Univers ity of Worry 00:00:00 00:00:00 [place] [facility] History SDOH Food 2022-05-27 2022-05-27 1 Univers ity of Scarcity 00:00:00 00:00:00 [place] [facility] History SDOH 2022-05-27 2022-05-27 2 University o f Transport Med 00:00:00 00:00:00 [place] Medic al Branch History SDVT 2022-05-27 2022-05-27 2 University o f Transport Non-Med 00:00:00 00:00:00 [place] M edical Branch History SDOH 2022-05-27 2022-05-27 2 University o f Housing Unable to 00:00:00 00:00:00 [place] M edical Pay Branch History [facility] 2022-05-27 2022-05-27 1 University o f Housing Places 00:00:00 00:00:00 [place] Medi gordon Lived Branch History [facility] 2022-05-27 2022-05-27 2 University o f Housing Homeless 00:00:00 00:00:00 [facility] dical Last Year Branch Education 2022-05-26 2022-05-26 21 University of 00:00:00 00:00:00 [facility] Tobacco use and 2022-05-03 2022-05-03 User of Universit y of exposure 00:00:00 00:00:00 smokeless [facility] [place] [facility] Tobacco Comment 2021-09-22 2021-09-22 dipper Universit y of 00:00:00 00:00:00 [facility] History of Social 2019-10-31 2019-10-[address] function 00:00:00 00:00:00 Hospital Alcohol intake 2019-10-29 2019-10-29 Lifetime Islam 00:00:00 00:00:00 non-drinker Hospital (finding) History of tobacco 2014-08-25 Snuff User Univer sity of use 00:00:00 [facility] Sex [birth year] At [birth year] Islam 00:00:00 00:00:00 Hospital Smoking Status Start Date Stop Date Source Social History [facility] Medications Ordered Filled Start Stop Current Ordering Indication Dosage Frequency Signature Comments Components Source Medication Medication Date Date Medication? Clinician (SIG) Name Name clindamycin 2022- No 900mg 900 mg, IV Univers in 5 % 07-11 Piggyback, ity of dextrose 10:45: 11:47 ONCE, 1 [place] (CLEOCIN) 00 :00 dose, On Medica l 900 mg/50 Mon [place] mL IV 07/11/22 at piggyback 0545, RTU 900 mg Administer over 30 Minutes, 50 mL
R chelsea for Anti-Infec tive: Empiric Therapy for Suspected Infection< br>Empiric Therapy Site: Skin / Soft tissue
Duration of therapy: 5 days
Re stricted use approved by: ED PROVIDER cefTRIAXone 2022- No 1000mg 1,000 mg, Univers (ROCEPHIN) 07-05 IV ity of 1,000 mg in 14:15: 14:53 [place], [place] NaCl 0.9% 00 :00 ONCE, 1 Medical (NS) 100 mL dose, On Bran ch MINI-BAG [facility] 07/05/22 at 0915, Administer over [...] 07/05/22 at 0715, Routine OLANZapine 2022-0 Yes [id number] 5mg Take 1 Univers 5 mg tablet 5-23 tablet by ity of 00:00: mouth in [place] 00 the Medical morning. [place] OLANZapine 2022-0 Yes [id number] 5mg Take 1 Univers 5 mg tablet 5-23 tablet by ity of 00:00: mouth in [place] 00 the Medical morning. [place] OLANZapine 2022-0 Yes [id number] 5mg Take 1 Univers 5 mg tablet 5-23 tablet by ity of 00:00: mouth in [place] 00 the Medical morning. [place] OLANZapine 2022-0 Yes [id number] 5mg Take 1 Univers 5 mg tablet 5-23 tablet by ity of 00:00: mouth in [place] 00 the Medical morning. Branch OLANZapine 3-0 Yes [id number] 5mg Take 1 Univers 5 mg tablet 5-23 tablet by ity of 00:00: mouth in [place] 00 the Medical morning. Branch OLANZapine 3-0 Yes [id number] 5mg Take 1 Univers 5 mg tablet 5-23 tablet by ity of 00:00: mouth in [place] 00 the Medical morning. Branch OLANZapine 3-0 Yes [id number] 5mg Take 1 Univers 5 mg tablet 5-23 tablet by ity of 00:00: mouth in [place] 00 the Medical morning. Branch OLANZapine 3-0 Yes [id number] 5mg Take 1 Univers 5 mg tablet 5-23 tablet by ity of 00:00: mouth in [place] 00 the Medical morning. Branch OLANZapine 3-0 Yes [id number] 5mg Take 1 Univers 5 mg tablet 5-23 tablet by ity of 00:00: mouth in [place] 00 the Medical morning. Branch furosemide 2022-0 2022- Yes [id number] 40mg Take 1 Univers 40 mg 5-23 06-07 tablet by ity of tablet 00:00: 04:59 mouth [place] 00 :00 every Medical morning Branch and evening for 14 days. furosemide 2022-0 2022- Yes [id number] 40mg Take 1 Univers 40 mg 5-23 06-07 tablet by ity of tablet 00:00: 04:59 mouth [place] 00 :00 every Medical morning Branch and evening for 14 days. furosemide 2022-0 2022- Yes [id number] 40mg Take 1 Univers 40 mg 5-23 06-07 tablet by ity of tablet 00:00: 04:59 mouth [place] 00 :00 every Medical morning Branch and evening for 14 days. furosemide 3-0 2022- Yes [id number] 40mg Take 1 Univers 40 mg 5-23 06-07 tablet by ity of tablet 00:00: 04:59 mouth [place] 00 :00 every Medical morning Branch and evening for 14 days. furosemide 2023-0 3- Yes [id number] 40mg Take 1 Univers 40 mg 5-23 06-07 tablet by ity of tablet 00:00: 04:59 mouth [place] 00 :00 every Medical morning Branch and evening for 14 days. furosemide 2023-0 2023- Yes [id number] 40mg Take 1 Univers 40 mg 5-23 06-07 tablet by ity of tablet 00:00: 04:59 mouth [place] 00 :00 every Medical morning Branch and evening for 14 days. furosemide 2022-2022- Yes [id number] 40mg Take 1 Univers 40 mg 07-05 06-07 tablet by ity of tablet 00:00: 04:59 mouth [place] 00 :00 every Medical morning Branch and evening for 14 days. cephALEXin 2022-2022- Yes [id number] 1000mg Take 2 Univers 500 mg 07-05 [id number] capsules ity of capsule 00:00: 04:59 by mouth [place] 00 :00 in the Medical morning Branch and 2 capsules in the evening. Do all this for 7 days. cephALEXin 2022- Yes [id number] 1000mg Take 2 Univers 500 mg 07-05- [id number] capsules ity of capsule 00:00: 04:59 by mouth [place] 00 :00 in the Medical morning Branch and 2 capsules in the evening. Do all this for 7 days. cephALEXin 2022-2022- Yes [id number] 1000mg Take 2 Univers 500 mg 07-05 [id number] capsules ity of capsule 00:00: 04:59 by mouth [place] 00 :00 in the Medical morning Branch and 2 capsules in the evening. Do all this for 7 days. cephALEXin 2022-2022- Yes [id number] 1000mg Take 2 Univers 500 mg 07-05 [id number] capsules ity of capsule 00:00: 04:59 by mouth [place] 00 :00 in the Medical morning Branch and 2 capsules in the evening. Do all this for 7 days. cephALEXin 2022- Yes [id number] 1000mg Take 2 Univers 500 mg 07-05 [id number] capsules ity of capsule 00:00: 04:59 by mouth [place] 00 :00 in the Medical morning Branch and 2 capsules in the evening. Do all this for 7 days. apixaban 5 2022-0 Yes [id number] 5mg Take 1 Unive rs mg tablet 5-22 tablet by ity o f 00:00: mouth in [place] [address] the [facility] morning Branch and 1 tablet in the [...] by ity o f 00:00: mouth in [place] 00 the Medical morning Branch and 1 tablet in the evening. Indication s: history of deep vein thrombosis apixaban 5 2022-0 Yes [id number] 5mg Take 1 Unive rs mg tablet 5-22 tablet by ity o f 00:00: mouth in [place] 00 the Medical morning Branch and 1 tablet in the evening. Indication s: history of deep vein thrombosis apixaban 5 2022-0 Yes [id number] 5mg Take 1 Unive rs mg tablet 5-22 tablet by ity o f 00:00: mouth in [place] 00 the Medical morning Branch and 1 tablet in the evening. Indication s: history of deep vein thrombosis apixaban 5 2022-0 Yes [id number] 5mg Take 1 Unive rs mg tablet 5-22 tablet by ity o f 00:00: mouth in [place] [address] the [facility] morning Branch and 1 tablet in the evening. Indication s: history of deep vein thrombosis apixaban 5 2022-0 Yes [id number] 5mg Take 1 Unive rs mg tablet 5-22 tablet by ity o f 00:00: mouth in [place] [address] the [facility] morning Branch and 1 tablet in the evening. Indication s: history of deep vein thrombosis apixaban 5 3-0 Yes 5523 5mg Take 1 Unive rs mg tablet 5-22 tablet by ity o f 00:00: mouth in [place] the Medical morning Branch and 1 tablet in the evening. Indication s: history of deep vein thrombosis apixaban 5 3-0 Yes [id number] 5mg Take 1 Unive rs mg tablet 5-22 tablet by ity o f 00:00: mouth in [place] [address] the [facility] morning Branch and 1 tablet in the evening. Indication s: history of deep vein thrombosis apixaban 5 3-0 Yes 5523 5mg Take 1 Unive rs mg tablet 5-22 tablet by ity o f 00:00: mouth in [place] [address] the Medical morning Branch and 1 tablet in the evening. Indication s: history of deep vein thrombosis apixaban 5 3-0 Yes 5523 5mg Take 1 Unive rs mg tablet 5-22 tablet by ity o f 00:00: mouth in [address] and 1 tablet in the evening. Indication s: history of deep vein thrombosis apixaban 5 3-0 Yes [id number] 5mg Take 1 Unive rs mg tablet 5-22 tablet by ity o f 00:00: mouth in [address] and 1 tablet in the evening. [...] mouth Center nightly. gabapentin 2023-0 Yes 300mg Q.[id number] Take [address] (NEURONTIN) 5-11 [id number] capsule [facility] 300 MG 18:24: 3D (300 [...] mouth Center nightly. gabapentin 3-0 Yes 300mg Q.[id number] Take [address] (NEURONTIN) 5-11 [id number] capsule [facility] 300 MG 18:24: 3D (300 [...] Univer s mg tablet - ity of 00:00: [address] traMADoL 50 2022-0 Yes Univer s mg tablet 06-13 ity of :: [place] [facility] traMADoL 50 2022-0 Yes Univer s mg tablet 06-13 ity of 00:00: [place] [facility] traMADoL 50 2022-0 Yes Univer s mg tablet 06-13 ity of 00:00: [place] 00 Medical Branch traMADoL 50 2022-0 Yes Univer s mg tablet 06-13 ity of 00:00: [place] [facility] traMADoL 50 2022-0 Yes Univer s mg tablet 06-13 ity of 00:00: [place] 00 Medical Branch traMADoL 50 3-0 Yes Univer s mg tablet 06-13 ity of 00:00: [place] [facility] traMADoL 50 3-0 Yes Univer s mg tablet 06-13 ity of 00:00: [place] [facility] traMADoL 50 3-0 Yes Univer s mg tablet 06-13 ity of 00:00: [place] 00 Medical Branch traMADoL 50 2022-0 Yes Univer s mg tablet 06-13 ity of 00:00: [place] [facility] traMADoL 50 2022-0 Yes Univer s mg tablet 06-13 ity of 00:00: [place] [facility] traMADoL 50 2022-0 Yes Univer s mg tablet 06-13 ity of 00:00: [place] 00 Medical Branch traMADoL 50 3-0 Yes Univer s mg tablet 06-13 ity of 00:00: [place] 00 Medical Branch traMADoL 50 2022-0 Yes Univer s mg tablet 06-13 ity of 00:00: [place] 00 Medical Branch traMADoL 50 3-0 Yes Univer s mg tablet 06-13 ity of 00:00: [place] 00 Medical Branch traMADoL 50 3-0 Yes Univer s mg tablet 06-13 ity of 00:00: [place] 00 Medical Branch traMADoL 50 3-0 Yes Univer s mg tablet 06-13 ity of 00:00: [place] 00 Medical Branch traMADoL 50 3-0 Yes Univer s mg tablet 06-13 ity of 00:00: [place] 00 Medical Branch traMADoL 50 3-0 Yes Univer s mg tablet 06-13 ity of 00:00: [place] 00 Medical Branch tc 3-0 2022- No [id number] 25mCi 25 Univer s 99m-medrona 06-07 [place] ty of te 13:50: 13:50 , [place] (DRAXIMAGE 00 :00 Intravenou Med ical MDP-25) s, ONCE, 1 Branch injection dose, On [place] 06/07/22 at 0900, Routine apixaban 5 0 2022- Yes [id number] 5mg [...] of deep vein thrombosis acetaminoph 2022- Yes [id number] 500mg Take 1 Univers en 500 mg 4-25 05-06 tablet by ity of tablet 00:00: 04:59 mouth [place] 00 :00 every 6 Medical (six) Branch hours as needed for Pain for up to 10 days. acetaminoph 2022- Yes [id number] 500mg Take 1 Univers en 500 mg 4-25 05-06 tablet by ity of tablet 00:00: 04:59 mouth [place] 00 :00 every 6 Medical (six) Branch hours as needed for Pain for up to 10 days. acetaminoph 2022- Yes [id number] 500mg Take 1 Univers en 500 mg 4-25 05-06 tablet by ity of tablet 00:00: 04:59 mouth [place] 00 :00 every 6 Medical (six) Branch hours as needed for Pain for up to 10 days. acetaminoph 2022- Yes [id number] 500mg Take 1 Univers en 500 mg 4-25 05-06 tablet by ity of tablet 00:00: 04:59 mouth [place] 00 :00 every 6 Medical (six) Branch hours as needed for Pain for up to 10 days. acetaminoph 2022- Yes [id number] 500mg Take 1 Univers en 500 mg 4-25 05-06 tablet by ity of tablet 00:00: 04:59 mouth [place] 00 :00 every 6 Medical (six) Branch hours as needed for Pain for up to 10 days. acetaminoph 2022- Yes [id number] 500mg Take 1 Univers en 500 mg 4-25 05-06 tablet by ity of tablet 00:00: 04:59 mouth [place] 00 :00 every 6 Medical (six) Branch hours as needed for Pain for up to 10 days. acetaminoph 2022- Yes [id number] 500mg Take 1 Univers en 500 mg 4-25 05-06 tablet by ity of tablet 00:00: 04:59 mouth [place] 00 :00 every 6 Medical (six) Branch hours as needed for Pain for up to 10 days. docusate 2022- Yes [id number] 100mg Take 1 Univers 100 mg 4-25 [...] Indication s: acute pain polyethylen 2022- Yes [id number] 17g Take 1 Univers e glycol 4-25 05-03 Packet by ity o f 3350 17 00:00: 04:59 mouth [place] gram powder 00 :00 every 24 Medi gordon (twenty-fo Branch ur) hours as needed for Constipati on for up to 7 days. docusate 2022- Yes [id number] 100mg Take 1 Univers 100 mg 4-25 [...] Indication s: acute pain polyethylen 2022- Yes [id number] 17g Take 1 Univers e glycol 4-25 05-03 Packet by ity o f 3350 17 00:00: 04:59 mouth [place] gram powder 00 :00 every 24 Medi gordno (twenty-fo Branch ur) hours as needed for Constipati on for up to 7 days. docusate 2022- Yes [id number] 100mg Take 1 Univers 100 mg 4-25 [...] Indication s: acute pain polyethylen 2022- Yes [id number] 17g Take 1 Univers e glycol 4-25 05-03 Packet by ity o f 3350 17 00:00: 04:59 mouth [place] gram powder 00 :00 every 24 Medi gordon (twenty-fo Branch ur) hours as needed for Constipati on for up to 7 days. docusate 2022- Yes [id number] 100mg Take 1 Univers 100 mg 4-25 05-03 capsule by ity of capsule 00:00: 04:59 mouth in [place] 00 :00 the [facility] for 7 days. HYDROcodone 2022- Yes [id number] 1{tbl} Take 1 U nivers -acetaminop 4-25 05-03 tablet by it y of hen 10-325 00:00: 04:59 mouth [place] mg tablet 00 :00 every 6 Medical (six) Branch hours as needed for Pain (scale 7-10) or Pain (scale 4-6) for up to 7 days. Indication s: acute pain polyethylen 2022- Yes [id number] 17g Take 1 Univers e glycol 4-25 05-03 Packet by ity o f 3350 17 00:00: 04:59 mouth [place] gram powder 00 :00 every 24 Medi gordon (twenty-fo Branch ur) hours as needed for Constipati on for up to 7 days. benzocaine- Yes 1{lozen 1 Lozenge, Univers menthoL 06-05 ge} Oral, ity of (CEPACOL 05:03: Q4HPRN, [place] SORE THROAT 14 Starting Medi gordon (CLAUDIA-MEN)) on Sun Branch lozenge 1 06/05/22 at Lozenge 0003, Until Discontinu ed, Routine, Sore throat benzocaine- Yes 1{lozen 1 Lozenge, Univers menthoL 06-05 ge} Oral, ity of (CEPACOL 05:03: Q4HPRN, [place] SORE THROAT 14 Starting Medi gordon (CLAUDIA-MEN)) on Sun Branch lozenge 1 06/05/22 at Lozenge 0003, Until Discontinu ed, Routine, Sore throat iopamidol 2022- No [id number] 80mL 80 mL, Univers (ISOVUE 06-05 Intravenou ity o f 370-500 mL) 01:36: 01:20 s, ONCE, 1 [place] injection 00 :00 dose, On Medica l 80 mL Sat Branch 06/04/22 at 2044, Routine apixaban 2022- Yes 10mg [Order 1 Univ ers (ELIQUIS) 06-05 Start] ity of tablet 10 01:00: 00:59 Name: [place] mg 00 :00 apixaban Medical (ELIQUIS) Branch tablet 10 mg Signed Summary: 10 mg, Oral, BID, 14 doses, First dose on 06/04/22 at 1999, Last dose on 06/11/22 at 0800, Routine
Indicatio ns: DVT/PE [Order 1 End] [Order 2 Start] Name: apixaban (ELIQUIS) tablet 5 mg Signed Summary: 5 mg, Oral, BID, First dose on 06/11/22 at 1999, Until Discontinu ed, Routine
Indicatio ns: DVT/PE [Order 2 End] apixaban 2022- Yes 10mg [Order 1 Univ ers (ELIQUIS) 06-05 Start] ity of tablet 10 01:00: 00:59 Name: [place] mg 00 :00 apixaban Medical (ELIQUIS) Branch tablet 10 mg Signed Summary: 10 mg, Oral, BID, 14 doses, First dose on 06/04/22 at 1999, Last dose on 06/11/22 at 0800, Routine
Indicatio ns: DVT/PE [Order 1 End] [Order 2 Start] Name: apixaban (ELIQUIS) tablet 5 mg Signed Summary: 5 mg, Oral, BID, First dose on 06/11/22 at 2000, Until Discontinu ed, Routine
Indicatio ns: DVT/PE [Order 2 End] bisacodyL 0 Yes 10mg 10 mg, Univer s (DULCOLAX) 06-04 Rectal, ity of suppository 15:25: QDAILYPRN, [place] 10 mg 51 Starting Medical on [facility] Branch 06/04/22 at 1025, Until Discontinu ed, Routine, Constipati on bisacodyL 0 Yes 10mg 10 mg, Univer s (DULCOLAX) 06-04 Rectal, ity of suppository 15:25: QDAILYPRN, [place] 10 mg 51 Starting Medical on [facility] Branch 06/04/22 at 1025, Until Discontinu ed, [...] Yes 20mg 20 mg, Unive rs (PRILOSEC) 22 Oral, ity of capsule 20 02:43: QDAILYPRN, [place] mg 53 Starting Medical on Mon Branch 06/03/22 at 2143, Until Discontinu ed, Routine, Indigestio n omeprazole 3-0 Yes 20mg 20 mg, Unive rs (PRILOSEC) 06-04 Oral, ity of capsule 20 02:43: QDAILYPRN, [place] mg 53 Starting Medical on Mon Branch 06/03/22 at 2143, Until Discontinu ed, Routine, Indigestio n NaCl 0.9% 2023-0 Yes 1000mL at 75 Unive rs (NS) IV 4-21 mL/hr, IV ity of infusion 18:00: Infusion, [place] 1,000 mL 00 CONTINUOUS Medic al , Starting Branch on Mon06/03/22 at 1300, Until Discontinu ed, Routine, PACU NaCl 0.9% 2023-0 Yes 1000mL at 75 Unive rs (NS) IV 4-21 mL/hr, IV ity of infusion 18:00: Infusion, [place] 1,000 mL 00 CONTINUOUS Medic al , Starting Branch on Mon06/03/22 at 1300, Until Discontinu ed, Routine, PACU heparin 2023-0 2022- No PRN, Univers 10,000 06-03 Starting ity of units in NS 14:25: 07:25 on Mon [place] 1000 mL for 00 :55 06/03/22 at [place] [facility] 0925, Branch Intra-op heparin 2022-0 2022- No 0U/h 0-3,050 Univer s 25,000 4-20 04-22 Units/hr ity of Units/250 15:22: 07:25 (0-30.5 [...] INITIAL INFUSION RATE.&nbsp ; _ &nb sp;FOR [facility], [facility], AND [facility] C[facility]US[facility] ONLY &nbs p; - [...] c levels are reached.<b r> mineral oil 0 Yes 30mL 30 mL, Univ ers (MINERAL 4-20 Oral, ity of OIL EXTRA 14:00: DAILY, [place] HEAVY) oral 00 First dose Me dical liquid 30 on [facility] 06/02/22 at 0900, Until Discontinu ed, Routine mineral oil 0 Yes 30mL 30 mL, Univ ers (MINERAL 4-20 Oral, ity of OIL EXTRA 14:00: DAILY, [place] HEAVY) oral 00 First dose Me dical liquid 30 on [facility] 06/02/22 at 0900, Until Discontinu ed, Routine [...] 00 First dose Medical on [facility] 05/31/22 at 0900, Until Discontinu ed, Routine docusate 0 Yes 100mg 100 mg, Unive rs (COLACE) 4-18 Oral, ity of capsule 100 14:00: DAILY, [place] mg 00 First dose Medical on [facility] 05/31/22 at 0900, Until Discontinu ed, Routine docusate 0 Yes 100mg 100 mg, Unive rs (COLACE) 4-18 Oral, ity of capsule 100 14:00: DAILY, [place] mg 00 First dose Medical on [facility] 05/31/22 at 0900, Until Discontinu ed, Routine docusate Yes 100mg 100 mg, Unive rs (COLACE) 4-18 Oral, ity of capsule 100 14:00: DAILY, [place] mg 00 First dose Medical on Mon05/31/22 at 0900, Until Discontinu ed, Routine heparin [...] INFUSION RATE.&nbsp ; _ &nb sp;FOR [facility], [facility], AND [facility] ONLY &nbs [...] therapeuti c levels are reached.<b r> iopamidol 2023-0 Yes PRN, Univers (ISOVUE-300 4-18 Starting ity of ) injection 02:47: [place] 05[place]30/[address] Until Discontinu ed, Routine, Intra-op iopamidol 2023-0 Yes PRN, Univers (ISOVUE-300 4-18 Starting ity of ) injection 02:47: on [place] 05/30/22 at [place] [address], [place] Until Discontinu ed, Routine, Intra-op iopamidol 2023-0 Yes PRN, Univers (ISOVUE-300 4-18 Starting ity of ) injection 02:47: [place] 05/30/[address] Until Discontinu ed, Routine, Intra-op heparin 2023-0 Yes PRN, Univers 10,000 4-18 Starting ity of units in NS 01:26: on Mon [place] 1000 [place] for 05/30/22 at [place] [facility] vascular 2025, Branch Intra-op heparin 3-0 [...]
30 0 Units/hr. Non titratable
heparin 2023-0 Yes 300U/h 300 Univers 25,000 4-17 Units/hr ity of Units/250 14:24: (3 mL/hr), [place] mL in D5W 12 IV Medical infusion Infusion, Branch (CNR) TITRATE, Parameters in Admin. Instr., Starting on Mon05/30/22 at 0924
30 0 Units/hr. Non titratable
heparin 2022-0 2023- No 300U/h 300 Univers 25,000 17 04-18 Units/hr ity of Units/250 14:24: 05:10 [...] 2022- No .5mg/h 0.5 mg/hr Univers (CATHFLO 4-17 [...] infusion sites combined.< br> alteplase 2022- No .5mg/h 0.5 mg/hr Univers (CATHFLO [...] 20 mEq 00 :00 dose, On Medical [facility] Branch 05/30/22 at 0615, Routine heparin 2022- [...] INITIAL INFUSION RATE.&nbsp ; _ &nb sp;FOR [place], [facility], AND [facility] ONLY &nbs p; - aPTT < [...] therapeuti c levels are reached.<b r> hydralAZINE 2022-0 Yes 10mg 10 mg, Univ ers (APRESOLINE 4-17 Slow IV ity o f ) injection 03:32: Push, [place] 10 mg 18 Q4HPRN, Medical Starting Branch on 05/29/22 at 2232, Until Discontinu ed, Routine, DBP=>10 0; SBP=>160, and HR < 70 hydralAZINE 2022-0 Yes 10mg 10 mg, Univ ers (APRESOLINE 4-17 Slow IV ity o f ) injection 03:32: Push, [place] 10 mg 18 Q4HPRN, Medical Starting Branch on 05/29/22 at 2232, Until Discontinu ed, Routine, DBP=>10 0; SBP=>160, and HR < 70 hydralAZINE 3-0 Yes 10mg 10 mg, Univ ers (APRESOLINE [...] 03:32: Push, [place] 10 mg 18 Q4HPRN, [facility] Starting Branch on [place] 05/29/22 at 2232, Until Discontinu ed, Routine, DBP=>10 0; SBP=>160, and HR < 70 labetaloL 2023-0 Yes 10mg 10 mg, Univer s (NORMODYNE) 4-17 Slow IV ity o f injection 03:31: Push, [place] 10 mg 53 Q4HPRN, [facility] Starting Branch on [place] 05/29/22 at 2231, Until Discontinu ed, Routine, SBP > 160 and HR > 70 labetaloL 2023-0 Yes 10mg 10 mg, Univer s (NORMODYNE) 4-17 Slow IV ity o f injection 03:31: Push, [place] 10 mg 53 Q4HPRN, [facility] Branch on [place] 05/29/22 at 2231, Until Discontinu ed, Routine, SBP > 160 and HR > 70 labetaloL 2023-0 Yes 10mg 10 mg, Univer s (NORMODYNE) 4-17 Slow IV ity o f injection 03:31: Push, [place] 10 mg 53 Q4HPRN, [facility] Starting Branch on [place] 05/29/22 at 2231, Until Discontinu ed, Routine, SBP > 160 and HR > 70 labetaloL 2023-0 Yes 10mg 10 mg, Univer s (NORMODYNE) 4-17 Slow IV ity o f injection 03:31: Push, [place] 10 mg 53 Q4HPRN, [facility] Starting Branch on [place] 05/29/22 at 2231, Until Discontinu ed, Routine, SBP > 160 and HR > 70 traMADoL 2023-0 Yes 50mg 50 mg, Univers (ULTRAM) 4-17 Oral, Q6H, ity o f tablet 50 01:45: First dose [place] mg 00 on [facility] 05/29/22 at Branch 204, Until Discontinu ed, Routine traMADoL 2023-0 Yes 50mg 50 mg, Univers (ULTRAM) 4-17 Oral, Q6H, ity o f tablet 50 01:45: First dose [place] mg 00 on [facility] 05/29/22 at Branch 2044, Until Discontinu ed, Routine traMADoL 2022-0 Yes 50mg 50 mg, Univers (ULTRAM) 4-17 Oral, Q6H, ity o f tablet 50 01:45: First dose [place] mg 00 on [facility] 05/29/22 at Branch 2044, Until Discontinu ed, Routine traMADoL 2022-0 Yes 50mg 50 mg, Univers (ULTRAM) 4-17 Oral, Q6H, ity o f tablet 50 01:45: First dose [place] mg 00 on [facility] 05/29/22 at Branch 2044, Until Discontinu ed, Routine HYDROcodone 2022-0 Yes 1{tbl} 1 tablet, Univers -acetaminop 4-17 Oral, ity of hen (NORCO) 01:37: Q6HPRN, [place] 10-325 mg 54 Starting Medica l tablet 1 on [place] Branch tablet 05/29/22 at 2036, Until Discontinu [...] Pain (scale 4-6), Pain (scale 7-10) heparin 2023-0 2023- No 300U/h 300 Univers 25,000 4-16 04-17 Units/hr ity of Units/250 15:46: 14:20 [...] 05/29/22 at [facility] 08, Branch Until Discontinu ed, Routine, Intra-op iodixanoL 2022-0 Yes PRN, Univers (VISIPAQUE 4-16 Starting ity o f 270-150 mL) 13:50: [place] injection 05/29/22 at [facility] 0850, Branch Until Discontinu ed, Routine, Intra-op iodixanoL 2022-0 Yes PRN, Univers (VISIPAQUE 4-16 Starting ity o f 270-150 mL) 13:50: [place] injection 05/29/22 at [facility] 0850, Branch Until Discontinu ed, Routine, Intra-op iodixanoL 2022-0 Yes PRN, Univers (VISIPAQUE 4-16 Starting ity o f 270-150 mL) 13:50: [place] injection 05/29/22 at [facility] 0850, Branch Until Discontinu ed, Routine, Intra-op lidocaine 2022-0 Yes PRN, Univers 1% (PF) -16 Starting ity of (XYLOCAINE) 13:00: [place] injection 05/29/22 at [facility] 0800, Branch Until Discontinu ed, Routine, Intra-op lidocaine 3-0 Yes PRN, Univers 1% (PF) -16 Starting ity of (XYLOCAINE) 13:00: [place] injection 05/29/22 at [facility] 0800, Branch Until Discontinu ed, Routine, Intra-op lidocaine 2022-0 Yes PRN, Univers 1% (PF) 05-29 Starting ity of (XYLOCAINE) 13:00: on [place] injection 05/29/22 at [facility] 0800, Branch Until Discontinu ed, Routine, Intra-op lidocaine 2022-0 Yes PRN, Univers 1% (PF) 05-29 Starting ity of (XYLOCAINE) 13:00: on [place] injection 05/29/22 at [facility] 0800, Branch Until Discontinu ed, Routine, Intra-op alteplase 2022- No 1mg/h 1 mg/hr Uni vers (CATHFLO 05-29 (25 ity of ACTIVASE) 12:30: 13:58 mL/hr), IV [place] 20 mg in 00 :35 Infusion, Medica l NaCl 0.9% CONTINUOUS Bran ch (NS) 500 mL , Starting infusion on [place] 05/29/22 at 0730
In fuse Via: infusion [...] (NS) 500 mL , Starting infusion on [place] 05/29/22 at 0730
In fuse Via: infusion catheter. Location: Right lower extremity sheath. Total infusion max dose is 4 mg/hr from all infusion sites combined.< br> morpHINE (2 2022- No 2mg 2 mg, Slow Univers mg/mL) 05-29 04-15 IV [place], ity of injection 2 00:15: 23:36 ONCE, 1 [place] mg 00 :00 dose, On Medical Sat Branch 05/28/22 at 1915, Routine HEPARIN 2022-2022- No 4000U 4,000 Univers SODIUM 05-28 04-15 Units, IV ity of (PORCINE) 16:30: 17:27 Push, [place] 1,000 00 :00 ONCE, 1 Medical UNIT/ML dose, On Branch BOLUS ACS Sat ORDER SET 05/28/22 at 1130, MICHELLE heparin 2022-0 2022- No 0U/h 0-2,750 Univer s 25,000 4-15 04-16 Units/hr ity of Units/250 16:23: 15:43 [...] e, Dosing and Testing: &nbs p;FOR [facility], [facility], AND [facility] ONLY &nbs p; [...] , Starting [place] mL vial) 36 on Sat Medical for 05/28/22 at Branch Rebolusing 1123, Until Discontinu ed, Routine
Dosing based on aPPT testing parameters (refer to continuous heparin drip order).
sulfur 2022- No [id number] 5mL 5 mL, Univ ers hexafluorid 05-27 Intravenou i ty of e microsphr 18:30: 18:30 s, ONCE, 1 [place] (LUMASON) 00 :00 dose, On Medica l injection 5 Mon Branch mL 05/27/22 at 1330, Routine
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 Restricted medication : HAROON MOYER enoxaparin 2022- No 1mg/kg 90 mg Uni vers (LOVENOX) 05-27 (rounded ity o f injection 14:07: 16:25 from 86.5 [place] 90 mg 50 :10 mg = 1 Medical mg/kg Branch ?86.5 kg), Subcutaneo us, Q12H, First dose on Mon05/27/22 at 2000, Until Discontinu ed, Routine polyethylen Yes 17g 17 g, Unive rs e [...] 0800, Until Discontinu ed, Routine gabapentin 2023-0 2023- No 300mg 300 mg, Un mary (NEURONTIN) -06-04 Oral, TID, i ty of capsule 300 13:00: 04:23 First dose [place] mg 00 :21 on Mon Medical 05/27/22 at Branch 0800, Until Discontinu ed, Routine iopamidol 2023-0 2023- No [id number] 100mL 100 mL, Univers (ISOVUE 05-27 [id number] Intravenou ity of 370-500 mL) 12:15: 12:15 s, ONCE, 1 [place] injection 00 :00 dose, On Medica l 100 mL Fri Branch 05/27/22 at 0715, Routine ALPRAZolam 2022- No .5mg 0.5 mg, Uni vers (XANAX) 05-27 Oral, ity of tablet 0.5 05:45: 05:15 ONCE, 1 [place] mg 00 :00 dose, On Medical Mon Branch 05/27/22 at 0045, Routine cyclobenzap 2022- No 10mg 10 mg, Uni vers rine 05-27 Oral, ity of (FLEXERIL) 04:47: 17:03 TIDPRN, [place] tablet 10 48 :01 Starting Medica l mg on [facility] Branch 05/26/22 at 2347, Until 05/29/22 at 1203, Routine, Muscle Spasms HYDROcodone 2022- No 1{tbl} 1 tablet, Univers -acetaminop 05-27 Oral, ity of hen (NORCO 04:44: 17:03 Q6HPRN, [place] 5) 5-325 mg 15 :15 Starting Medi gordon tablet 1 on [facility] Branch tablet 05/26/22 at 2344, Until 05/29/22 at 1203, Routine, Pain (scale 4-6) ondansetron 2023-0 Yes 4mg 4 mg, Slow Univers (ZOFRAN 4-14 IV [place], ity of (PF)) 01:30: Q6HPRN, [place] injection 4 58 Starting Medi gordon mg on [facility] Branch 05/26/22 at 2030, Until Discontinu ed, Routine, Nausea and Vomiting (N/V) ondansetron 2023-0 Yes 4mg 4 mg, Slow Univers (ZOFRAN 4-14 IV [place], ity of (PF)) 01:30: Q6HPRN, [place] injection 4 58 Starting Medi gordon mg on [facility] Branch 05/26/22 at 2030, Until Discontinu ed, Routine, Nausea and Vomiting (N/V) ondansetron 2023-0 Yes 4mg 4 mg, Slow Univers (ZOFRAN 4-14 IV [place], ity of (PF)) 01:30: Q6HPRN, [place] injection 4 58 Starting Medi gordon mg on [place] Branch 05/26/22 at 2030, Until Discontinu ed, Routine, Nausea and Vomiting (N/V) ondansetron Yes 4mg 4 mg, Slow Univers (ZOFRAN 05-27 IV [place], ity of (PF)) 01:30: Q6HPRN, [place] injection 4 58 Starting Medi gordon mg on [facility] Branch 05/26/22 at 2030, Until Discontinu ed, Routine, Nausea and Vomiting (N/V) morpHINE (2 2022- No 4mg 4 mg, Slow Univers mg/mL) 05-27 IV [place], ity of injection 4 01:30: 01:29 Q4HPRN, [place] mg 55 :55 Starting Medical on [place] Branch 05/26/22 at 2030, Until Mon05/27/22 at 2028, Routine, Pain (scale 7-10) methocarbam No 500mg 500 mg, U nivers oL 05-27 Oral, ity of (ROBAXIN) 00:00: 23:10 ONCE, 1 [place] tablet 500 00 :00 dose, On Medic al mg [facility] Branch 05/26/22 at 1900, Routine traMADoL No 50mg 50 mg, Univer s (ULTRAM) 05-26 Oral, ity of tablet 50 23:45: 23:10 ONCE, 1 [place] mg 00 :00 dose, On [facility] 05/26/22 at 1845, Routine gabapentin No 300mg 300 mg, Un mary (NEURONTIN) 05-26 Oral, ity of capsule 300 23:00: 23:10 ONCE, 1 [place] mg 00 :00 dose, On [facility] 05/26/22 at 1800, MICHELLE methylpredn 2022- No 125mg 125 mg, U nivers isolone sod 05-26 Slow IV ity of succ 22:15: 21:28 [facility], [place] (SOLU-MEDRO 00 :00 ONCE, 1 Medic al L) dose, On Branch injection [place] 125 mg 05/26/22 at 1715, MICHELLE furosemide 2022- No 40mg 40 mg, IV U nivers (LASIX) 05-26 [place], ity of injection 21:15: 21:19 ONCE, 1 [place] 40 mg 00 :00 dose, [facility] at 1615, MICHELLE ketorolac 2022- No 30mg 30 mg, Unive rs (TORADOL) 05-23 Intramuscu ity of injection 23:00: 22:35 lar, ONCE, [place] 30 mg 00 :00 1 dose, On [facility] Branch 05/23/22 at 1800, Routine diazePAM 2022- No 2.5mg 2.5 mg, Univ ers (VALIUM) 05-23 Oral, ity of tablet 2.5 22:45: 23:09 ONCE, 1 [place] mg 00 :00 dose, On [facility] 05/23/22 at 1745, MICHELLE HYDROcodone 2022- No 1{tbl} 1 tablet, Univers -acetaminop 05-23 Oral, ONCE i ty of hen (NORCO) 11:45: 11:00 NOW, 1 [place] 10-325 mg 00 :00 dose, On Medica l tablet [address] [facility] tablet 05/23/22 at 0645, MICHELLE gabapentin 2022- No 600mg 600 mg, Un mary (NEURONTIN) 05-23 Oral, ity of capsule 600 09:00: 09:09 ONCE, 1 [place] mg 00 :00 dose, On [facility] 05/23/22 at 0400, MICHELLE dexamethaso 2022- No 10mg 10 mg, Uni vers ne sod phos 05-23 Intramuscu i ty of PF 09:00: 09:07 lar, ONCE, [place] injection 00 :00 1 dose, On Medi gordon 10 mg [facility] 05/23/22 at 0400, 1 mL gabapentin Yes [id number] 300mg Take 1 Univers 300 mg 4-10 capsule by ity of capsule 00:00: mouth in [place] 00 the Medical morning Branch and 1 capsule at noon and 1 capsule in the evening. gabapentin 2022-0 Yes [id number] 300mg Take 1 Univers 300 mg 4-10 capsule by ity of capsule 00:00: mouth in [place] 00 the Medical morning Branch and 1 capsule at noon and 1 capsule in the evening. gabapentin 2023-0 Yes [id number] 300mg Take 1 Univers 300 mg 4-10 capsule by ity of capsule 00:00: mouth in [place] 00 the Medical morning Branch and 1 capsule at noon and 1 capsule in the evening. ketorolac 2023-0 Yes [id number] 10mg Take 1 U nivers 10 mg 4-10 tablet by ity of tablet 00:00: mouth [place] 00 every 6 Medical (six) Branch hours as needed for Pain (scale 7-10). gabapentin 2023-0 Yes [id number] 300mg Take 1 Univers 300 mg 4-10 capsule by ity of capsule 00:00: mouth in [place] 00 the Medical morning Branch and 1 capsule at noon and 1 capsule in the evening. ketorolac 2023-0 Yes [id number] 10mg Take 1 U nivers 10 mg 4-10 tablet by ity of tablet 00:00: mouth [place] [address] every 6 Medical (six) Branch hours as needed for Pain (scale 7-10). gabapentin 2023-0 Yes [id number] 300mg Take 1 Univers 300 mg 4-10 capsule by ity of capsule 00:00: mouth in [place] 00 the Medical morning Branch and 1 capsule at noon and 1 capsule in the evening. ketorolac 2023-0 Yes [id number] 10mg Take 1 U nivers 10 mg 4-10 tablet by ity of tablet 00:00: mouth [place] [address] every 6 Medical (six) Branch hours as needed for Pain (scale 7-10). gabapentin 2023-0 Yes [id number] 300mg Take 1 Univers 300 mg 4-10 capsule by ity of capsule 00:00: mouth in [place] 00 the Medical morning Branch and 1 capsule at noon and 1 capsule in the evening. ketorolac 2023-0 Yes [id number] 10mg Take 1 U nivers 10 mg 4-10 tablet by ity of tablet 00:00: mouth [place] [address] every 6 Medical (six) Branch hours as needed for Pain (scale 7-10). gabapentin 2023-0 Yes [id number] 300mg Take 1 Univers 300 mg 4-10 capsule by ity of capsule 00:00: mouth in [place] 00 the Medical morning Branch and 1 capsule at noon and 1 capsule in the evening. ketorolac 2022-0 Yes [id number] 10mg Take 1 U nivers 10 mg 4-10 tablet by ity of tablet 00:00: mouth [place] 00 every 6 Medical (six) Branch hours as needed for Pain (scale 7-10). gabapentin 2022-0 Yes [id number] 300mg Take 1 Univers 300 mg 4-10 capsule by ity of capsule 00:00: mouth in [place] 00 the Medical morning Branch and 1 capsule at noon and 1 capsule in the evening. ketorolac 2022-0 Yes [id number] 10mg Take 1 U nivers 10 mg 4-10 tablet by ity of tablet 00:00: mouth [place] 00 every 6 Medical (six) Branch hours as needed for Pain (scale 7-10). gabapentin 2022- No [id number] 300mg Take 1 Univers 300 mg 4-10 04-25 capsule by ity of capsule 00:00: 00:00 mouth in [place] 00 :00 the Medical morning Branch and 1 capsule at noon and 1 capsule in the evening. methocarbam 2022-0 2022- No [id number] 500mg Take 1 Univers oL 500 mg 4-10 04-25 tablet by ity of tablet 00:00: 00:00 mouth 4 [place] 00 :00 ([facility]) Medical times [place] daily for 7 days. ketorolac 2022-0 2022- No [id number] 10mg Take 1 Univers 10 mg 4-10 04-25 tablet by ity of tablet 00:00: 00:00 mouth [place] 00 :00 every 6 Medical (six) Branch hours as needed for Pain (scale 7-10). methocarbam 0 2022- Yes [id number] 500mg Take 1 Univers oL 500 mg 4-10 04-18 tablet by ity of tablet 00:00: 04:59 mouth 4 [place] 00 :00 ([facility]) Medical times Branch daily for 7 days. methocarbam 2022-0 2022- Yes [id number] 500mg Take 1 Univers oL 500 mg 4-10 04-18 tablet by ity of tablet 00:00: 04:59 mouth 4 [place] 00 :00 (four) Medical times Branch daily for 7 days. methocarbam 2022-0 2022- Yes [id number] 500mg Take 1 Univers oL 500 mg 4-10 -18 tablet by ity of tablet 00:00: 04:59 mouth 4 [place] 00 :00 (four) Medical times Branch daily for 7 days. methocarbam 2022-0 2022- No [id number] 500mg Take 1 Univers oL 500 mg 4-10 -18 tablet by ity of tablet 00:00: 04:59 mouth 4 [place] 00 :00 (four) Medical times [place] daily for 7 days. methocarbam 2022-0 2022- No [id number] 500mg Take 1 Univers oL 500 mg 4-11 16-18 tablet by ity of tablet 00:00: 04:59 mouth 4 [place] 00 :00 (four) Medical times [place] daily for 7 days. mirtazapine 2022-0 Yes [id number] 45mg Take 1 Univers 45 mg 2-23 tablet by ity of tablet 00:00: mouth at [place] [address] bedtime. Medical Branch mirtazapine 2022-0 Yes [id number] 45mg Take 1 Univers 45 mg 2-23 tablet by ity of tablet 00:00: mouth at [place] [address] bedtime. Medical Branch mirtazapine 2022-0 Yes [id number] 45mg Take 1 Univers 45 mg 2-23 tablet by ity of tablet 00:00: mouth at [place] [address] bedtime. Medical Branch mirtazapine 2022-0 Yes [id number] 45mg Take 1 Univers 45 mg 2-23 tablet by ity of tablet 00:00: mouth at [place] [address] bedtime. Medical Branch mirtazapine 2022-0 Yes [id number] 45mg Take 1 Univers 45 mg 2-23 tablet by ity of tablet 00:00: mouth at [place] [address] bedtime. Medical Branch mirtazapine 2022-0 Yes [id number] 45mg Take 1 Univers 45 mg 2-23 tablet by ity of tablet 00:00: mouth at [place] [address] bedtime. Medical Branch mirtazapine 2022-0 Yes [id number] 45mg Take 1 Univers 45 mg 2-23 tablet by ity of tablet 00:00: mouth at [place] [address] bedtime. Medical Branch mirtazapine 2022-0 Yes [id number] 45mg Take 1 Univers 45 mg 2-23 tablet by ity of tablet 00:00: mouth at [place] 00 bedtime. Medical Branch mirtazapine 3-0 Yes [id number] 45mg Take 1 Univers 45 mg 2-23 tablet by ity of tablet 00:00: mouth at [place] bedtime. Medical Branch mirtazapine 3-0 Yes [id number] 45mg Take 1 Univers 45 mg 2-23 tablet by ity of tablet 00:00: mouth at [place] [address] bedtime. Medical Branch mirtazapine 3-0 Yes [id number] 45mg Take 1 Univers 45 mg 2-23 tablet by ity of tablet 00:00: mouth at [place] bedtime. Medical Branch mirtazapine 3-0 Yes [id number] 45mg Take 1 Univers 45 mg 2-23 tablet by ity of tablet 00:00: mouth at [place] bedtime. Medical Branch mirtazapine 2022-0 Yes [id number] 45mg Take 1 Univers 45 mg 2-23 tablet by ity of tablet 00:00: mouth at [place] [address] bedtime. Medical Branch mirtazapine 2022-0 Yes [id number] 45mg Take 1 Univers 45 mg 2-23 tablet by ity of tablet 00:00: mouth at [place] [address] bedtime. Medical Branch mirtazapine 2022-0 Yes [id number] 45mg Take 1 Univers 45 mg 2-23 tablet by ity of tablet 00:00: mouth at [place] [address] bedtime. Medical Branch mirtazapine 3-0 Yes [id number] 45mg Take 1 Univers 45 mg 2-23 tablet by ity of tablet 00:00: mouth at [place] [address] bedtime. Medical Branch mirtazapine 3-0 Yes [id number] 45mg Take 1 Univers 45 mg 2-23 tablet by ity of tablet 00:00: mouth at [place] [address] bedtime. Medical Branch mirtazapine 3-0 Yes [id number] 45mg Take 1 Univers 45 mg 2-23 tablet by ity of tablet 00:00: mouth at [place] [address] bedtime. Medical Branch mirtazapine 3-0 Yes [id number] 45mg Take 1 Univers 45 mg 2-23 tablet by ity of tablet 00:00: mouth at [place] [address] bedtime. Medical Branch mirtazapine 3-0 Yes [id number] 45mg Take 1 Univers 45 mg 2-23 tablet by ity of tablet 00:00: mouth at [place] [address] bedtime. Medical Branch mirtazapine 2022-0 Yes [id number] 45mg Take 1 Univers 45 mg 2-23 tablet by ity of tablet 00:00: mouth at [place] 00 bedtime. Medical Branch mirtazapine 2022-0 Yes [id number] 45mg Take 1 Univers 45 mg 2-23 tablet by ity of tablet 00:00: mouth at [place] 00 bedtime. Medical Branch mirtazapine 2022-0 Yes [id number] 45mg Take 1 Univers 45 mg 2-23 tablet by ity of tablet 00:00: mouth at [place] [address] bedtime. Medical Branch mirtazapine 2022-0 Yes [id number] 45mg Take 1 Univers 45 mg 2-23 tablet by ity of tablet 00:00: mouth at [place] [address] bedtime. Medical Branch mirtazapine 2022-0 Yes [id number] 45mg Take 1 Univers 45 mg 2-23 tablet by it[facility] of tablet 00:00: mouth at [place] [address] bedtime. Medical Branch mirtazapine 2022-0 3- No [id number] 45mg Take 1 [facility] 45 mg 2-23 04-25 tablet by ity of tablet 00:00: 00:00 mouth at [place] 00 :00 bedtime. Medical Branch mirtazapine 2021- Yes [id number] 30mg Take 1 [facility] 30 mg 2-21 tablet by it[facility] of tablet 00:00: mouth at [place] [address] bedtime. Medical Branch mirtazapine 2021- Yes [id number] 30mg Take 1 [facility] 30 mg 2-21 tablet by it[facility] of tablet 00:00: mouth at [place] [address] bedtime. Medical Branch mirtazapine 2021- Yes [id number] 30mg Take 1 [facility] 30 mg 2-21 tablet by ity of tablet 00:00: mouth at [place] [address] bedtime. Medical Branch mirtazapine 2021-1 Yes [id number] 30mg Take 1 [facility] 30 mg 2-21 tablet by ity of tablet 00:00: mouth at [place] [address] bedtime. Medical Branch mirtazapine 2021-1 Yes [id number] 30mg Take 1 [facility] 30 mg 2-21 tablet by it[facility] of tablet 00:00: mouth at [place] [address] bedtime. Medical Branch mirtazapine 2021- Yes [id number] 30mg Take 1 [facility] 30 mg 2-21 tablet by it[facility] of tablet 00:00: mouth at [place] [address] bedtime. Medical Branch mirtazapine 2021-02 Yes [id number] 30mg Take 1 [facility] 30 mg 2-21 tablet by it[facility] of tablet 00:00: mouth at [place] [address] bedtime. Medical Branch mirtazapine 2021-02 Yes [id number] 30mg Take 1 [facility] 30 mg 2-21 tablet by ity of tablet 00:00: mouth at [place] [address] bedtime. Medical Branch mirtazapine 2021-02 Yes [id number] 30mg Take 1 [facility] 30 mg 2-21 tablet by ity of tablet 00:00: mouth at [place] 00 bedtime. [facility] Branch mirtazapine 2021-02- No [id number] 30mg Take 1 Univers 30 mg 2-21 02-23 tablet by ity of tablet 00:00: 00:00 mouth at [place] 00 :00 bedtime. [facility] Branch mirtazapine 2021-02- No [id number] 30mg Take 1 Univers 30 mg 2-21 -23 tablet by ity of tablet 00:00: 00:00 mouth at [place] 00 :00 bedtime. [facility] Branch traMADoL 50 2021-02 Yes 50mg Take 1 Univ ers mg tablet 2-08 tablet by ity o f 00:00: mouth in [place] the Medical morning Branch and 1 tablet at noon and 1 tablet in the evening. traMADoL 50 2021-02 Yes 50mg Take 1 Univ ers mg tablet 2-08 tablet by ity o f 00:00: mouth in [place] the Medical morning Branch and 1 tablet at noon and 1 tablet in the evening. traMADoL 50 2021-02 Yes 50mg Take 1 Univ ers mg tablet 2-08 tablet by ity o f 00:00: mouth in [place] the Medical morning Branch and 1 tablet at noon and 1 tablet in the evening. traMADoL 50 2021-02 Yes 50mg Take 1 Univ ers mg tablet 2-08 tablet by ity o f 00:00: mouth in [place] the Medical morning Branch and 1 tablet at noon and 1 tablet in the evening. traMADoL 50 2021-02 Yes 50mg Take 1 Univ ers mg tablet 2-08 tablet by ity o f 00:00: mouth in [place] the Medical morning Branch and 1 tablet at noon and 1 tablet in the evening. traMADoL 50 2021-02 Yes 50mg Take 1 Univ ers mg tablet 2-08 tablet by ity o f 00:00: mouth in [place] 00 the Medical morning Branch and 1 tablet at noon and 1 tablet in the evening. traMADoL 50 2021-02 Yes 50mg Take 1 Univ ers mg tablet 2-08 tablet by ity o f 00:00: mouth in [place] 00 the Medical morning Branch and 1 tablet at noon and 1 tablet in the evening. traMADoL 50 2021-02 Yes 50mg Take 1 Univ ers mg tablet 2-08 tablet by ity o f 00:00: mouth in [place] 00 the Medical morning Branch and 1 tablet at noon and 1 tablet in the evening. traMADoL 50 2021-02 Yes 50mg Take 1 Univ ers mg tablet 2-08 tablet by ity o f 00:00: mouth in [place] [address] the Medical morning Branch and 1 tablet at noon and 1 tablet in the evening. traMADoL 50 2021-02 Yes 50mg Take 1 Univ ers mg tablet 2-08 tablet by ity o f 00:00: mouth in [place] the Medical morning Branch and 1 tablet at noon and 1 tablet in the evening. traMADoL 50 2021-02 Yes 50mg Take 1 Univ ers mg tablet 2-08 tablet by ity o f 00:00: mouth in [place] the Medical morning Branch and 1 tablet at noon and 1 tablet in the evening. traMADoL 50 2021-02 Yes 50mg Take 1 Univ ers mg tablet 2-08 tablet by ity o f 00:00: mouth in [place] the Medical morning Branch and 1 tablet at noon and 1 tablet in the evening. traMADoL 50 2021-02 Yes 50mg Take 1 Univ ers mg tablet 2-08 tablet by ity o f 00:00: mouth in [place] [address] the Medical morning Branch and 1 tablet at noon and 1 tablet in the evening. traMADoL 50 2021-1 Yes 50mg Take 1 Univ ers mg tablet 2-08 tablet by ity o f 00:00: mouth in [place] [address] the Medical morning Branch and 1 tablet at noon and 1 tablet in the evening. traMADoL 50 2021- Yes 50mg Take 1 Univ ers mg tablet 2-08 tablet by ity o f 00:00: mouth in [place] [address] the Medical morning Branch and 1 tablet at noon and 1 tablet in the evening. traMADoL 50 2021-02 Yes 50mg Take 1 Univ ers mg tablet 2-08 tablet by ity o f 00:00: mouth in [place] 00 the Medical morning Branch and 1 tablet at noon and 1 tablet in the evening. traMADoL 50 2021-02 Yes 50mg Take 1 Univ ers mg tablet 2-08 tablet by ity o f 00:00: mouth in [place] 00 the Medical morning Branch and 1 tablet at noon and 1 tablet in the evening. traMADoL 50 2021-02 Yes 50mg Take 1 Univ ers mg tablet 2-08 tablet by ity o f 00:00: mouth in [place] [address] the Medical morning Branch and 1 tablet at noon and 1 tablet in the evening. traMADoL 50 2021-02 Yes 50mg Take 50 mg Univers mg tablet 2-08 by mouth ity of 00:00: in the [place] morning Medical and 50 mg Branch at noon and 50 mg in the evening. traMADoL 50 2021-02 Yes 50mg Take 50 mg [facility] mg tablet 2-08 by mouth ity of 00:00: in the [place] morning Medical and 50 mg Branch at noon and 50 mg in the evening. traMADoL 50 2021-02 Yes 50mg Take 50 mg Univers mg tablet 2-08 by mouth ity of 00:00: in the [place] morning Medical and 50 mg Branch at noon and 50 mg in the evening. traMADoL 50 2021-02 Yes 50mg Take 50 mg [facility] mg tablet 2-08 by mouth ity of 00:00: in the [place] morning Medical and 50 mg Branch at noon and 50 mg in the evening. traMADoL 50 2021-02 Yes 50mg Take 50 mg Univers mg tablet 2-08 by mouth ity of 00:00: in the [place] morning Medical and 50 mg Branch at noon and 50 mg in the evening. traMADoL 50 2021-02 Yes 50mg Take 50 mg Univers mg tablet 2-08 by mouth ity of 00:00: in the [place] morning Medical and 50 mg Branch at noon and 50 mg in the evening. traMADoL 50 2021-02 Yes 50mg Take 50 mg [facility] mg tablet 2-08 by mouth ity of 00:00: in the [place] morning Medical and 50 mg Branch at noon and 50 mg in the evening. traMADoL 50 2022-1 Yes 50mg Take 50 mg [facility] mg tablet 2-08 by mouth ity of 00:00: in the [place] morning Medical and 50 mg Branch at noon and 50 mg in the evening. traMADoL 50 2021-02 Yes 50mg Take 50 mg [facility] mg tablet 2-08 by mouth ity of 00:00: in the [place] morning Medical and 50 mg Branch at noon and 50 mg in the evening. traMADoL 50 2021-02 Yes 50mg Take 50 mg [facility] mg tablet 2-08 by mouth ity of 00:00: in the [place] morning Medical and 50 mg Branch at noon and 50 mg in the evening. traMADoL 50 2021-02 Yes 50mg Take 50 mg [facility] mg tablet 2-08 by mouth ity of 00:00: in the [place] morning Medical and 50 mg Branch at noon and 50 mg in the evening. traMADoL 50 2021-02 Yes 50mg Take 50 mg [facility] mg tablet 2-08 by mouth ity of 00:00: in the [place] morning Medical and 50 mg Branch at noon and 50 mg in the evening. traMADoL 50 2021-02 Yes 50mg Take 50 mg [facility] mg tablet 2-08 by mouth ity of 00:00: in the [place] morning Medical and 50 mg Branch at noon and 50 mg in the evening. traMADoL 50 2021-02 Yes 50mg Take 50 mg [facility] mg tablet 2-08 by mouth ity of 00:00: in the [place] morning Medical and 50 mg Branch at noon and 50 mg in the evening. traMADoL 50 2021-02 Yes 50mg Take 1 Univ ers mg tablet 2-08 tablet by ity o f 00:00: mouth in [place] [address] the Medical morning Branch and 1 tablet at noon and 1 tablet in the evening. traMADoL 50 2021-02 Yes 50mg Take 1 Univ ers mg tablet 2-08 tablet by ity o f 00:00: mouth in [place] 00 the Medical morning Branch and 1 tablet at noon and 1 tablet in the evening. traMADoL 50 2021-02 Yes 50mg Take 1 Univ ers mg tablet 2-08 tablet by ity o f 00:00: mouth in [place] 00 the Medical morning Branch and 1 tablet at noon and 1 tablet in the evening. traMADoL 50 2021-02- No 50mg Take 1 Uni vers mg tablet 2-08 04-25 tablet by ity of 00:00: 00:00 mouth in [place] 00 :00 the Medical morning Branch and 1 tablet at noon and 1 tablet in the evening. mirtazapine 2021-02 Yes [id number] 15mg Take 1 [facility] 15 mg 1-21 tablet by ity of tablet 00:00: mouth at [place] [address] bedtime. Medical Branch mirtazapine 2021-02 Yes [id number] 15mg Take 1 [facility] 15 mg 1-21 tablet by ity of tablet 00:00: mouth at [place] 00 bedtime. Medical Branch mirtazapine 2021-02 Yes [id number] 15mg Take 1 [facility] 15 mg 1-21 tablet by ity of tablet 00:00: mouth at [place] 00 bedtime. Medical Branch mirtazapine 2021-02- No [id number] 15mg Take 1 [facility] 15 mg 1-21 12-21 tablet by ity of tablet 00:00: 00:00 mouth at [place] 00 :00 bedtime. Medical Branch mirtazapine 2021-02- No [id number] 15mg Take 1 [facility] 15 mg 1-21 12-21 tablet by ity of tablet 00:00: 00:00 mouth at [place] 00 :00 bedtime. Medical Branch vortioxetin 2021-02 Yes [id number] 5mg Take 1 Univers e 0-20 tablet by ity of (TRINTELLIX 00:00: mouth in [place] ) 5 mg Tab 00 the Medical morning. Branch vortioxetin 2021-02 Yes [id number] 5mg Take 1 Univers e 0-20 tablet by ity of (TRINTELLIX 00:00: mouth in [place] ) 5 mg Tab 00 the Medical morning. Branch vortioxetin 2021-02 Yes [id number] 5mg Take 1 [facility] e 0-20 tablet by ity of (TRINTELLIX 00:00: mouth in [place] ) 5 mg Tab 00 the Medical morning. Branch vortioxetin 2021-02 Yes [id number] 5mg Take 1 [facility] e 0-20 tablet by ity of (TRINTELLIX 00:00: mouth in [place] ) 5 mg Tab 00 the Medical morning. Branch vortioxetin 2021-02 Yes [id number] 5mg Take 1 Univers e 0-20 tablet by ity of (TRINTELLIX 00:00: mouth in [place] ) 5 mg Tab 00 the Medical morning. Branch vortioxetin 2021-02 Yes [id number] 5mg Take 1 [facility] e 0-20 tablet by ity of (TRINTELLIX 00:00: mouth in [place] ) 5 mg Tab 00 the Medical morning. Branch vortioxetin 2021-02- No [id number] 5mg Take 1 Univers e 0-20 11-21 tablet by ity of (TRINTELLIX 00:00: 00:00 mouth in [place] ) 5 mg Tab 00 :00 the Medical morning. Branch vortioxetin 2021-02- No [id number] 5mg Take 1 Univers e 0-20 11-21 tablet by ity of (TRINTELLIX 00:00: 00:00 mouth in [place] ) 5 mg Tab 00 :00 the Medical morning. Branch DULoxetine Yes [id number] 20mg Take 1 [facility] 20 mg 9-20 capsule by ity of capsule 00:00: mouth in [place] 00 the Medical morning. Branch DULoxetine 0 Yes [id number] 20mg Take 1 [facility] 20 mg 9-20 capsule by ity of capsule 00:00: mouth in [place] 00 the Medical morning. Branch DULoxetine 0 Yes [id number] 20mg Take 1 [facility] 20 mg 9-20 capsule by ity of capsule 00:00: mouth in [place] 00 the Medical morning. Branch DULoxetine 2021-0 Yes [id number] 20mg Take 1 [facility] 20 mg 9-20 capsule by ity of capsule 00:00: mouth in [place] 00 the Medical morning. Branch DULoxetine 2021-0 Yes [id number] 20mg Take 1 [facility] 20 mg 9-20 capsule by ity of capsule 00:00: mouth in [place] 00 the Medical morning. Branch DULoxetine 2021-0 2021- No [id number] 20mg Take 1 [facility] 20 mg 9-20 10-20 capsule by ity of capsule 00:00: 00:00 mouth in [place] 00 :00 the Medical morning. Branch DULoxetine 2021-0 2021- No [id number] 20mg Take 1 [facility] 20 mg 9-20 10-20 capsule by ity of capsule 00:00: 00:00 mouth in [place] 00 :00 the Medical morning. Branch gabapentin 2022-0 Yes [id number] 300mg Take 1 [facility] 300 mg 8-23 capsule by ity of capsule 00:00: mouth at [place] [address] bedtime. Medical Branch gabapentin 2022-0 Yes [id number] 300mg Take 1 [facility] 300 mg 8-23 capsule by ity of capsule 00:00: mouth at [place] [address] bedtime. Medical Branch gabapentin 2-0 Yes [id number] 300mg Take 1 [facility] 300 mg 8-23 capsule by ity of capsule 00:00: mouth at [place] [address] bedtime. Medical Branch gabapentin 2-0 2022- No [id number] 300mg Take 1 [facility] 300 mg 8-23 09-20 capsule by ity of capsule 00:00: 00:00 mouth at [place] 00 :00 bedtime. Medical Branch gabapentin 2-0 2022- No [id number] 300mg Take 1 [facility] 300 mg 8-23 09-20 capsule by ity of capsule 00:00: 00:00 mouth at [place] 00 :00 bedtime. Medical Branch mirtazapine 2021-0 2022- No 30mg Take 30 mg [facility] 30 mg 09-20 by mouth ity of tablet 00:00: 00:00 in the [place] 00 :00 morning. Medical Branch mirtazapine 2-0 2022- No 30mg Take 30 mg [facility] 30 mg 09-20- by mouth ity of tablet 00:00: 00:00 in the [place] 00 :00 morning. Medical Branch sertraline 2020-0 [...] 0.9% 6-09 (Same as: l 18:36: BD [place] 00 Posiflush) Saline No Notes: Memoria Flush 0.9% 6-09 (Same as: l 18:36: BD [place] 00 Posiflush) Saline No Notes: Memoria Flush 0.9% 6-09 (Same as: l 18:36: BD [place] 00 Posiflush) Saline No Notes: Memoria Flush 0.9% 6-09 (Same as: l 18:36: BD [place] 00 Posiflush) Saline No Notes: Memoria Flush 0.9% 6-09 (Same as: l 18:36: BD [place] 00 Posiflush) Saline No Notes: Memoria Flush 0.9% 6-09 (Same as: l 18:36: BD [place] 00 Posiflush) Saline No Notes: Memoria Flush 0.9% 6-09 (Same as: l 18:36: BD [place] 00 Posiflush) Saline No Notes: Memoria Flush 0.9% 6-09 (Same as: l 18:36: BD [place] 00 Posiflush) Saline No Notes: Memoria Flush 0.9% 6-09 (Same as: l 18:36: BD [place] 00 Posiflush) Saline No Notes: Memoria Flush 0.9% 6-09 (Same as: l 18:36: BD [place] 00 Posiflush) Saline No Notes: Memoria Flush 0.9% 6-09 (Same as: l 18:36: BD [place] 00 Posiflush) Saline No Notes: Memoria Flush 0.9% 6-09 (Same as: l 18:36: BD [place] 00 Posiflush) Saline No Notes: Memoria Flush 0.9% 6-09 (Same as: l 18:36: BD [place] 00 Posiflush) Saline No Notes: Memoria Flush 0.9% 6-09 (Same as: l 18:36: BD [place] 00 Posiflush) Saline No Notes: Memoria Flush 0.9% 6-09 (Same as: l 18:36: BD [place] 00 Posiflush) Saline No Notes: Memoria Flush 0.9% 6-09 (Same as: l 18:36: BD [place] 00 Posiflush) Saline No Notes: Memoria Flush 0.9% 6-09 (Same as: l 18:36: BD [place] 00 Posiflush) Saline No Notes: Memoria Flush 0.9% 6-09 (Same as: l 18:36: BD [place] 00 Posiflush) Saline No Notes: Memoria Flush 0.9% 6-09 (Same as: l 18:36: BD [place] 00 Posiflush) Saline No Notes: Memoria Flush 0.9% 6-09 (Same as: l 18:36: BD [place] 00 Posiflush) Saline No Notes: Memoria Flush 0.9% 6-09 (Same as: l 18:36: BD [place] 00 Posiflush) Saline No Notes: Memoria Flush 0.9% 6-09 (Same as: l 18:36: BD [place] 00 Posiflush) Saline No Notes: Memoria Flush 0.9% 6-09 (Same as: l 18:36: BD [place] 00 Posiflush) Saline No Notes: Memoria Flush 0.9% 6-09 (Same as: l 18:36: BD [place] 00 Posiflush) Saline No Notes: Memoria Flush 0.9% 6-09 (Same as: l 18:36: BD [place] 00 Posiflush) Saline No Notes: Memoria Flush 0.9% 6-09 (Same as: l 18:36: BD [place] 00 Posiflush) Saline No Notes: Memoria Flush 0.9% 6-09 (Same as: l 18:36: BD [place] 00 Posiflush) Saline No Notes: Memoria Flush 0.9% 6-09 (Same as: l 18:36: BD [place] 00 Posiflush) Saline No Notes: Memoria Flush 0.9% 6-09 (Same as: l 18:36: BD [place] 00 Posiflush) Saline No Notes: Memoria Flush 0.9% 6-09 (Same as: l 18:36: BD [place] 00 Posiflush) Saline No Notes: Memoria Flush 0.9% 6-09 (Same as: l 18:36: BD [place] 00 Posiflush) Saline No Notes: Memoria Flush 0.9% 6-09 (Same as: l 18:36: BD [place] 00 Posiflush) Saline No Notes: Memoria Flush 0.9% 6-09 (Same as: l 18:36: BD [place] 00 Posiflush) Saline No Notes: Memoria Flush 0.9% 6-09 (Same as: l 18:36: BD [place] 00 Posiflush) Saline No Notes: Memoria Flush 0.9% 6-09 (Same as: l 18:36: BD [place] 00 Posiflush) Saline No Notes: Memoria Flush 0.9% 6-09 (Same as: l 18:36: BD [place] 00 Posiflush) Vital Signs Vital Name Observation Time Observation Value Comments Source Systolic blood 2022-07-20 09:47:00 129 mm[Hg] [facility] of pressure [place] [facility] Diastolic blood 2022-07-20 09:47:00 68 mm[Hg] Unive rsity of pressure [place] [facility] Heart rate 2022-07-20 09:47:00 90 /min [facility] [place] [facility] [place] Body temperature 2022-07-20 09:47:00 36.72 Nita [facility] [place] [facility] Respiratory rate 2022-07-20 09:47:00 17 /min [facility] [place] [facility] Oxygen saturation in 2022-07-20 09:47:00 100 /min [facility] of Arterial blood by [place] [facility] Pulse oximetry Branch Systolic blood 2022-07-16 14:11:00 145 mm[Hg] Univer sity of pressure [place] [facility] Diastolic blood 2022-07-16 14:11:00 73 mm[Hg] Unive rsity of pressure [place] [facility] Heart rate 2022-07-16 14:11:00 62 /min [facility] [place] [facility] [place] Body temperature 2022-07-16 14:11:00 36.33 [facility] [place] [facility] Respiratory rate 2022-07-16 14:11:00 20 /min [facility] [place] [facility] Oxygen saturation in 2022-07-16 14:11:00 100 /min [facility] of Arterial blood by [place] P[facility] oximetry Branch WEIGHT 2022-07-12 06:00:00 86 kg WEIGHT 2022-07-12 06:00:00 86 kg Systolic blood 2022-07-11 15:10:00 117 mm[Hg] Univer sity of pressure [place] [facility] Diastolic blood 2022-07-11 15:10:00 68 mm[Hg] Unive rsity of pressure [place] [facility] Heart rate 2022-07-11 15:10:00 74 /min [facility] of [facility] Body temperature 2022-07-11 15:10:00 36.94 [facility] [place] [facility] Respiratory rate 2022-07-11 15:10:00 18 /min [facility] [place] [facility] Body weight 2022-07-11 15:10:00 90.719 kg [facility] [place] [facility] BMI 2022-07-11 15:10:00 32.28 kg/m2 [facility] [place] [facility] Oxygen saturation in 2022-07-11 15:10:00 98 /min [facility] of Arterial blood by [facility] Pulse oximetry Branch Systolic blood 2022-07-11 11:20:00 133 mm[Hg] Univer sity of pressure [place] [facility] Diastolic blood 2022-07-11 11:20:00 69 mm[Hg] Unive rsity of pressure [place] [facility] Heart rate 2022-07-11 11:20:00 78 /min [facility] [place] [facility] Respiratory rate 2022-07-11 11:20:00 18 /min [facility] [place] [facility] Oxygen saturation in 2022-07-11 11:20:00 99 /min [facility] of Arterial blood by [facility] Pulse oximetry Branch Body temperature 2022-07-11 09:24:00 36.83 [facility] [place] [facility] Body weight 2022-07-11 09:24:00 90.719 kg [facility] [place] [facility] BMI 2022-07-11 09:24:00 32.28 kg/m2 [facility] [place] [facility] Systolic blood 2022-07-08 18:24:00 130 mm[Hg] Univer sity of pressure [place] [facility] Diastolic blood 2022-07-08 18:24:00 57 mm[Hg] Unive rsity of pressure [place] [facility] Heart rate 2022-07-08 18:24:00 87 /min [facility] [place] [facility] Body temperature 2022-07-08 18:24:00 36.72 [...] 14:00:00 155 mm[Hg] Univer sity of pressure [place] [facility] Diastolic blood 2022-07-05 14:00:00 80 mm[Hg] Unive rsity of pressure [place] [facility] Heart rate 2022-07-05 14:00:00 76 /min [facility] [place] [facility] Body temperature 2022-07-05 14:00:00 37.56 [facility] [place] [facility] Respiratory rate 2022-07-05 14:00:00 16 /min [facility] [place] [facility] Oxygen saturation in 2022-07-05 14:00:00 98 /min [facility] Arterial blood by [place] [facility] Pulse oximetry Branch Body weight 2022-07-05 10:49:00 90.719 kg [facility] [place] [facility] BMI 2022-07-05 10:49:00 32.28 kg/m2 [facility] [place] [facility] HEIGHT 2022-06-21 11:16:00 167.6 cm WEIGHT 2022-06-21 11:16:00 87.181 kg HEIGHT 2022-06-21 11:16:00 167.6 cm WEIGHT 2022-06-21 11:16:00 87.181 kg Systolic blood 2022-06-16 16:05:00 112 mm[Hg] Univer sity of pressure [place] [facility] Diastolic blood 2022-06-16 16:05:00 72 mm[Hg] Unive rsity of pressure [place] [facility] Heart rate 2022-06-16 16:05:00 90 /min [facility] [place] [facility] Body temperature 2022-06-16 16:05:00 36.72 [facility] [place] [facility] Respiratory rate 2022-06-16 16:05:00 16 /min [facility] [place] [facility] Body height 2022-06-16 16:05:00 167.6 cm [facility] [place] [facility] Body weight 2022-06-16 16:05:00 91.173 kg [facility] [place] [facility] BMI 2022-06-16 16:05:00 32.44 kg/m2 [facility] [place] [facility] Oxygen saturation in 2022-06-16 16:05:00 100 /min [facility] Arterial blood by [place] [facility] Pulse oximetry Branch Systolic blood 2022-06-07 18:25:00 140 mm[Hg] Univer sity of pressure [place] [facility] Diastolic blood 2022-06-07 18:25:00 74 mm[Hg] Unive rsity of pressure [place] [facility] Heart rate 2022-06-07 18:25:00 70 /min [facility] [place] [facility] Body temperature 2022-06-07 18:25:00 36.44 [facility] [place] [facility] Respiratory rate 2022-06-07 18:25:00 20 /min [facility] [place] [facility] Oxygen saturation in 2022-06-07 18:25:00 100 /min [facility] Arterial blood by [place] [facility] Pulse oximetry Branch Body weight 2022-05-27 08:00:00 86.456 kg [facility] [place] [facility] BMI 2022-05-27 08:00:00 30.76 kg/m2 [facility] [place] [facility] Body height 2022-05-27 02:20:00 167.6 cm [facility] [place] [facility] Systolic blood 2022-06-03 10:48:00 136 mm[Hg] Univer sity of pressure [place] [facility] Diastolic blood 2022-06-03 10:48:00 67 mm[Hg] Unive rsity of pressure [place] [facility] Heart rate 2022-06-03 10:48:00 80 /min [facility] [place] [facility] Body temperature 2022-06-03 10:48:00 36.28 [facility] [place] [facility] Respiratory rate 2022-06-03 10:48:00 18 /min [facility] [place] [facility] Oxygen saturation in 2022-06-03 10:48:00 97 /min [facility] Arterial blood by [place] Pulse oximetry Branch Body weight 2022-05-27 08:00:00 86.456 kg [facility] [place] [facility] BMI 2022-05-27 08:00:00 30.76 kg/m2 [facility] [place] [facility] Body height 2022-05-27 02:20:00 167.6 cm [facility] [place] [facility] Systolic blood 2022-05-31 01:00:00 116 mm[Hg] Univer sity of pressure [place] [facility] Diastolic blood 2022-05-31 01:00:00 68 mm[Hg] Unive rsity of pressure [place] [facility] Heart rate 2022-05-31 01:00:00 79 /min [facility] [place] [facility] Body temperature 2022-05-31 01:00:00 37.78 [facility] [place] [facility] Respiratory rate 2022-05-31 01:00:00 14 /min [facility] [place] [facility] Oxygen saturation in 2022-05-31 01:00:00 96 /min [facility] of Arterial blood by [facility] Pulse oximetry Branch Body weight 2022-05-27 08:00:00 86.456 kg [facility] [place] [facility] BMI 2022-05-27 08:00:00 30.76 kg/m2 [facility] [place] [facility] Body height 2022-05-27 02:20:00 167.6 cm [facility] [place] [facility] Systolic blood 2022-05-29 15:15:00 138 mm[Hg] Univer sity of pressure [place] [facility] Diastolic blood 2022-05-29 15:15:00 81 mm[Hg] Unive rsity of pressure [place] [facility] Heart rate 2022-05-29 15:15:00 62 /min [facility] [place] [facility] Body temperature 2022-05-29 15:15:00 36.39 [facility] [place] [facility] Respiratory rate 2022-05-29 15:15:00 18 /min [facility] [place] [facility] Oxygen saturation in 2022-05-29 15:15:00 100 /min [facility] of Arterial blood by [facility] Pulse oximetry Branch Body weight 2022-05-27 08:00:00 86.456 kg [facility] [place] [facility] BMI 2022-05-27 08:00:00 30.76 kg/m2 [facility] [place] [facility] Body height 2022-05-27 02:20:00 167.6 cm [facility] [place] [facility] Systolic blood 2022-05-23 21:38:00 137 mm[Hg] Univer sity of pressure [place] [facility] Diastolic blood 2022-05-23 21:38:00 89 mm[Hg] Unive rsity of pressure [place] [facility] Heart rate 2022-05-23 21:38:00 100 /min [facility] [place] [facility] Body temperature 2022-05-23 21:38:00 36.67 [facility] [place] [facility] Respiratory rate 2022-05-23 21:38:00 20 /min [facility] [place] [facility] Body weight 2022-05-23 21:38:00 81.647 kg [facility] [place] [facility] BMI 2022-05-23 21:38:00 29.05 kg/m2 [facility] [place] [facility] Branch Oxygen saturation in 2022-05-23 21:38:00 100 /min [facility] Arterial blood by [facility] Pulse oximetry Branch Systolic blood 2022-05-23 10:00:00 144 mm[Hg] [facility] Diastolic blood 2022-05-23 10:00:00 79 mm[Hg] [facility] Heart rate 2022-05-23 10:00:00 77 /min [facility] Respiratory rate 2022-05-23 10:00:00 14 /min [facility] Oxygen saturation in 2022-05-23 10:00:00 96 /min [facility] Arterial blood by [facility] Pulse oximetry Branch Body temperature 2022-05-23 08:49:00 36.72 Nita [facility] Body height 2022-05-23 08:49:00 167.6 cm [facility] Body weight 2022-05-23 08:49:00 81.647 kg [facility] BMI 2022-05-23 08:49:00 29.05 kg/m2 [facility] Systolic blood 2022-05-19 14:32:00 153 mm[Hg] [facility] Diastolic blood 2022-05-19 14:32:00 82 mm[Hg] [facility] Heart rate 2022-05-19 14:31:00 86 /min [facility] Body temperature 2022-05-19 14:31:00 36.11 Nita [facility] Body height 2022-05-19 14:31:00 167.6 cm [facility] Body weight 2022-05-19 14:31:00 87.544 kg [facility] BMI 2022-05-19 14:31:00 31.15 kg/m2 [facility] Oxygen saturation in 2022-05-19 14:31:00 97 /min [facility] Arterial blood by [facility] Pulse oximetry Branch Systolic blood 2022-05-03 14:51:00 136 mm[Hg] [facility] Diastolic blood 2022-05-03 14:51:00 80 mm[Hg] [facility] Heart rate 2022-05-03 14:51:00 68 /min [facility] Body height 2022-05-03 14:51:00 167.6 cm [facility] Body weight 2022-05-03 14:51:00 84.369 kg [facility] BMI 2022-05-03 14:51:00 30.02 kg/m2 [facility] Systolic blood 2022-04-13 15:41:00 128 mm[Hg] [facility] Diastolic blood 2022-04-13 15:41:00 88 mm[Hg] [facility] Heart rate 2022-04-13 15:41:00 88 /min [facility] Respiratory rate 2022-04-13 15:41:00 18 /min [facility] Body height 2022-04-13 15:41:00 167.6 cm [facility] Body weight 2022-04-13 15:41:00 86.047 kg [facility] BMI 2022-04-13 15:41:00 30.62 kg/m2 [facility] Oxygen saturation in 2022-04-13 15:41:00 96 /min [facility] Arterial blood by [facility] Pulse oximetry Branch Systolic blood 2022-04-07 16:41:00 162 mm[Hg] [facility] Diastolic blood 2022-04-07 16:41:00 89 mm[Hg] [facility] Heart rate 2022-04-07 16:41:00 81 /min [facility] Body weight 2022-04-07 16:39:00 86.183 kg [facility] BMI 2022-04-07 16:39:00 30.67 kg/m2 [facility] Systolic blood 2022-02-02 15:24:00 133 mm[Hg] [facility] Diastolic blood 2022-02-02 15:24:00 82 mm[Hg] [facility] Heart rate 2022-02-02 15:24:00 82 /min [facility] Body height 2022-02-02 15:24:00 167.6 cm [facility] Body weight 2022-02-02 15:24:00 83.008 kg [facility] BMI 2022-02-02 15:24:00 29.54 kg/m2 [facility] Systolic blood 2022-01-03 15:07:00 129 mm[Hg] [facility] Diastolic blood 2022-01-03 15:07:00 82 mm[Hg] [facility] Heart rate 2022-01-03 15:07:00 76 /min [facility] Body temperature 2022-01-03 15:07:00 36.83 Nita [facility] Body height 2022-01-03 15:07:00 167.6 cm [facility] Body weight 2022-01-03 15:07:00 83.462 kg [facility] BMI 2022-01-03 15:07:00 29.70 kg/m2 [facility] Systolic blood 2021-12-08 15:22:00 144 mm[Hg] [facility] Diastolic blood 2021-12-08 15:22:00 84 mm[Hg] [facility] Heart rate 2021-12-08 15:18:00 70 /min [facility] Body height 2021-12-08 15:18:00 167.6 cm [facility] Body weight 2021-12-08 15:18:00 83.326 kg [facility] BMI 2021-12-08 15:18:00 29.65 kg/m2 [facility] Oxygen saturation in 2021-12-08 15:18:00 100 /min [facility] Arterial blood by [facility] Pulse oximetry Branch Systolic blood 2021-12-02 16:05:00 130 mm[Hg] [facility] Diastolic blood 2021-12-02 16:05:00 78 mm[Hg] [facility] Heart rate 2021-12-02 16:05:00 61 /min [facility] Body temperature 2021-12-02 16:05:00 37.22 Nita [facility] Body height 2021-12-02 16:05:00 167.6 cm [facility] Body weight 2021-12-02 16:05:00 84.369 kg [facility] BMI 2021-12-02 16:05:00 30.02 kg/m2 [facility] Systolic blood 2021-11-02 14:34:00 133 mm[Hg] [facility] Diastolic blood 2021-11-02 14:34:00 79 mm[Hg] [facility] Heart rate 2021-11-02 14:34:00 80 /min [facility] Body height 2021-11-02 14:34:00 167.6 cm [facility] Body weight 2021-11-02 14:34:00 84.823 kg [facility] BMI 2021-11-02 14:34:00 30.18 kg/m2 [facility] Systolic blood 2021-10-05 19:18:00 152 mm[Hg] [facility] Diastolic blood 2021-10-05 19:18:00 87 mm[Hg] [facility] Heart rate 2021-10-05 19:18:00 83 /min [facility] Body temperature 2021-10-05 19:18:00 37.33 Nita [facility] Body height 2021-10-05 19:18:00 167.6 cm [facility] Body weight 2021-10-05 19:18:00 86.637 kg [facility] BMI 2021-10-05 19:18:00 30.83 kg/m2 [facility] Oxygen saturation in 2021-10-05 19:18:00 99 /min [facility] Arterial blood by [facility] Pulse oximetry Branch Heart rate 2022-06-23 15:28:08 91 /min [facility] Respiratory rate 2022-06-23 15:28:08 18 /min [facility] Oxygen saturation in 2022-06-23 15:28:08 100 /min [facility] Arterial blood by Medical Ce nter Pulse oximetry Body temperature 2022-06-23 15:28:04 36.89 Nita [facility] Systolic blood 2022-06-23 15:27:00 144 mm[Hg] [facility] Diastolic blood 2022-06-23 15:27:00 79 mm[Hg] [facility] Body height 2022-06-21 11:16:00 167.6 cm [facility] Body weight 2022-06-21 11:16:00 87.181 kg [facility] BMI 2022-06-21 11:16:00 31.02 kg/m2 [facility] Initial DRG Weight: 2020-02-15 05:04:52 [...] Temperature 2020-02-15 05:04:52 36.6\\S\\97.9 Weight 2020-02-15 05:04:52 16335\\S\\2627.91 Weight Measurement 2020-02-15 05:04:52 Built in Bedscale [...] Temperature 2020-02-10 08:28:02 36.6\\S\\97.9 Weight 2020-02-10 08:28:02 31732\\S\\2627.91 Weight Measurement 2020-02-10 08:28:02 Built in Bedscale [...] Temperature 2020-02-06 14:55:36 36.6\\S\\97.9 Weight 2020-02-06 14:55:36 67319\\S\\2627.91 Weight Measurement 2020-02-06 14:55:36 Built in Bedscale [...] Temperature 2020-02-06 12:25:52 36.7\\S\\98.1 Weight 2020-02-06 12:25:52 95612\\S\\2627.91 Weight Measurement 2020-02-06 12:25:52 Built in Bedscale [...] Temperature 2020-02-04 14:40:56 36.3\\S\\97.3 Weight 2020-02-04 14:40:56 36874\\S\\2627.91 Weight Measurement 2020-02-04 14:40:56 Built in Bedscale [...] Temperature 2020-02-04 12:53:01 36.3\\S\\97.3 Weight 2020-02-04 12:53:01 43519\\S\\2627.91 Weight Measurement 2020-02-04 12:53:01 Built in Bedscale [...] Temperature 2020-02-04 10:07:56 36.7\\S\\98.1 Weight 2020-02-04 10:07:56 00012\\S\\2627.91 Weight Measurement 2020-02-04 10:07:56 Built in Bedscale [...] Temperature 2020-02-04 06:31:28 36.7\\S\\98.1 Weight 2020-02-04 06:31:28 88624\\S\\2627.91 Weight Measurement 2020-02-04 06:31:28 Built in Bedscale [...] Temperature 2020-02-03 15:40:21 37.1\\S\\98.8 Weight 2020-02-03 15:40:21 99938\\S\\2627.91 Weight Measurement 2020-02-03 15:40:21 Built in Bedscale [...] Temperature 2020-02-03 13:59:33 37.1\\S\\98.8 Weight 2020-02-03 13:59:33 86346\\S\\2627.91 Weight Measurement 2020-02-03 13:59:33 Built in Bedscale [...] Temperature 2020-02-03 13:57:29 37.1\\S\\98.8 Weight 2020-02-03 13:57:29 35311\\S\\2627.91 Weight Measurement 2020-02-03 13:57:29 Built in [employer] WEIGHT 2020-02-03 05:44:00 74.5 kg HEIGHT 2020-02-03 05:00:00 167.64 cm Respitory Rate 2014-07-22 20:45:00 [facility] Heart Rate 2014-07-22 20:45:00 [facility] Systolic (mm Hg) 2014-07-22 20:45:00 [facility] Diastolic (mm Hg) 2014-07-22 20:45:00 [facility] Height 2014-07-22 17:53:00 167.64 cm [facility] Weight 2014-07-22 17:53:00 [facility] BMI Calculated 2014-07-22 17:53:00 [facility] Respitory Rate 2014-07-22 17:53:00 [facility] Temperature Oral (F) 2014-07-22 17:53:00 97.9 F [facility] Heart Rate 2014-07-22 17:53:00 [facility] Systolic (mm Hg) 2014-07-22 17:53:00 Jack [facility] Diastolic (mm Hg) 2014-07-22 17:53:00 Mem [facility] Procedures Procedure Date / Time Performing Clinician Source Performed COMP. METABOLIC PANEL 2022-07-11 10:41:00 Ángel Murray [facility] ([id number]) [facility] CBC WITH DIFF 2022-07-11 10:41:00 Ángel Murray [facility] POCT GLUCOSE (AUTOMATED) 2022-07-11 09:26:00 Doctor Unamindaigned, [facility] CONSENT/REFUSAL FOR 2022-07-11 04:57:15 Doctor Unassigned, [facility] DIAGNOSIS AND TREATMENT [facility] CONSENT/REFUSAL FOR 2022-07-08 18:20:06 Doctor Unassigned, [facility] DIAGNOSIS AND TREATMENT [facility] [place] URINALYSIS 2022-07-05 13:22:00 Hilda Miller [facility] XR TIBIA FIBULA 2 VW 2022-07-05 13:16:57 Hilda Miller [facility] COMP. METABOLIC PANEL 2022-07-05 12:59:00 Hilda Miller [facility] ([id number]) [facility] US LOWER EXTREMITY VEIN 2022-07-05 12:47:00 Hilda Miller [facility] WITH COMPRESSION RIGHT Medical [facility] (ONLY FOR RULE OUT DVT) TROPONIN I 2022-07-05 11:49:00 Hilda Miller [facility] CBC WITH DIFF 2022-07-05 11:49:00 Hilda Miller [facility] N-TERMINAL PRO-BNP 2022-07-05 11:49:00 Hilda Miller [facility] US RENAL COMPLETE 2022-06-23 16:47:00 [facility] AUTO 2022-06-23 05:27:00 Kendra [facility] DIFFERENTIAL [place] CBC W/PLT COUNT & AUTO 2022-06-23 05:27:00 Kendra [facility] DIFFERENTIAL [place] US ABDOMEN LIMITED 2022-06-22 16:17:00 Olga Abraham [facility] BASIC METABOLIC PANEL 2022-06-22 03:48:00 Olga Abraham [facility] MAGNESIUM 2022-06-22 03:48:00 Olga Abraham [facility] HEPATIC FUNCTION PANEL 2022-06-22 03:48:00 Olga Abraham [facility] CBC W/PLT COUNT & AUTO 2022-06-22 03:48:00 Olga Abraham [facility] DIFFERENTIAL Center PROTEIN ELECTROPHORESIS, 2022-06-22 03:48:00 Jorge [facility] SERUM Center IRON, TIBC, % SAT. 2022-06-22 03:48:00 Olga Abraham [facility] (WITHOUT FERRITIN) Center VITAMIN B12 2022-06-22 03:48:00 Shelbie [facility] FERRITIN 2022-06-22 03:48:00 Shelbie [facility] HEPARIN ANTIBODY 2022-06-22 03:48:00 [facility] LACT[facility] DEHYDROGENASE 2022-06-22 03:48:00 [facility] ([facility]) [facility] HAPTOGLOBIN 2022-06-22 03:48:00 [facility] RETICULOCYTE COUNT 2022-06-22 03:48:00 [facility] Kristy Center SERUM IMMUNOTYPING 2022-06-22 03:48:00 Fabienne [facility] SEROTONIN RELEASE ASSAY 2022-06-22 03:48:00 Fabienne [facility] CBC W/PLT COUNT & AUTO 2022-06-22 03:48:00 Shelbie AbrahamKianna [facility] URINE PROTEIN 2022-06-21 16:38:00 Shelbie [facility]in[facility] ELECTROPHORESIS, RANDOM Center SARS-COV2/RT-PCR ([facility] & 2022-06-21 11:14:00 Fabienne [facility] REF LABS) Center COMPREHENSIVE METABOLIC 2022-06-21 11:12:00 Shelbie Abraham[facility] PANEL Center PROTHROMBIN TIME/INR 2022-06-21 11:12:00 Jorge Abraham[facility]na[facility] CBC W/PLT COUNT & AUTO 2022-06-21 11:12:00 Shelbie AbrahamKianna [facility] DIFFERENTIAL Center CBC W/PLT COUNT & AUTO 2022-06-21 11:12:00 Olga Abraham [facility] DIFFERENTIAL Center INSURANCE CORRESPONDENCE 2022-06-21 05:01:00 Doctor Unassigned, [facility] PHOSPHORUS 2022-06-07 09:16:00 [facility] MAGNESIUM 2022-06-07 09:16:00 [facility] BASIC METABOLIC PANEL 2022-06-07 09:16:00 [facility] (NA, K, CL, CO2, GLUCOSE, Faustino Medica l Branch BUN, CREATININE, CA) PHOSPHORUS 2022-06-05 11:13:00 [facility] [place] MAGNESIUM 2022-06-05 11:13:00 [facility] [place] BASIC METABOLIC PANEL 2022-06-05 11:13:00 [facility] (NA, K, CL, CO2, GLUCOSE, Rod, Juanpablo Medica l Branch BUN, CREATININE, CA) [place] CBC WITH DIFF 2022-06-05 11:13:00 [facility] [place] PHOSPHORUS 2022-06-05 11:13:00 [facility] [place] MAGNESIUM 2022-06-05 11:13:00 Prajapati [facility] [place] BASIC METABOLIC PANEL 2022-06-05 11:13:00 Prajapati [facility] (NA, K, CL, CO2, GLUCOSE, Rod, Juanpablo Medica l Branch BUN, CREATININE, CA) [place] CBC WITH DIFF 2022-06-05 11:13:00 [facility] [place] CT THORAX W CONTRAST 2022-06-05 01:36:13 Shimon [facility] CT THORAX W CONTRAST 2022-06-05 01:36:13 Shimon [facility] ACTIVATED PARTIAL 2022-06-04 18:00:00 Dannie [facility] ACTIVATED PARTIAL 2022-06-04 18:00:00 Dannie [facility] ACTIVATED PARTIAL 2022-06-04 14:21:00 [facility] ACTIVATED PARTIAL 2022-06-04 14:21:00 [facility] XR KUB 2022-06-04 09:32:00 Dannie [facility] XR KUB 2022-06-04 09:32:00 Dannie [facility] XR KUB 2022-06-04 06:45:00 Dannie [facility] XR KUB 2022-06-04 06:45:00 Dannie [facility] HIT - AB 2022-06-04 06:14:00 Dannie [facility] EXTRA SST HOLD FOR MSUP 2022-06-04 06:14:00 Dannie [facility] HIT - AB 2022-06-04 06:14:00 Dannie [facility] EXTRA SST HOLD FOR MSUP 2022-06-04 06:14:00 Dannie [facility] XR CHEST 1 VW 2022-06-04 05:23:00 Dannie [facility] XR CHEST 1 VW 2022-06-04 05:23:00 Dannie [facility] TROPONIN I 2022-06-04 04:51:00 Dannie [facility] HEPATIC FUNCTION PANEL 2022-06-04 04:51:00 Armando Pandey [facility] ([id number]) (ALB,T.PRO,BILI Medical Branch T,BU/BC,ALT,AST,ALK PHOS) BASIC METABOLIC PANEL 2022-06-04 04:51:00 Armando Pandey [facility] (NA, K, CL, CO2, GLUCOSE, Medica l Branch BUN, CREATININE, CA) CBC WITH DIFF 2022-06-04 04:51:00 Armando Pandey [facility] ACTIVATED PARTIAL 2022-06-04 04:51:00 Andreea [facility] TROPONIN I 2022-06-04 04:51:00 Armando Pandey [facility] HEPATIC FUNCTION PANEL 2022-06-04 04:51:00 Armando Pandey [facility] ([id number]) (ALB,T.PRO,BILI Medical Branch T,BU/BC,ALT,AST,ALK PHOS) BASIC METABOLIC PANEL 2022-06-04 04:51:00 Armando Pandey [facility] (NA, K, CL, CO2, GLUCOSE, Medica l Branch BUN, CREATININE, CA) CBC WITH DIFF 2022-06-04 04:51:00 Armando Pandey [facility] ACTIVATED PARTIAL 2022-06-04 04:51:00 Andreea [facility] HB ECG ROUTINE & RHYTHM 2022-06-04 04:43:15 Dannie Armando [facility] HB ECG ROUTINE & RHYTHM 2022-06-04 04:43:15 Dannie Armando [facility] ACTIVATED PARTIAL 2022-06-03 20:52:00 [facility] ACTIVATED PARTIAL 2022-06-03 20:52:00 [facility] FL TIME OR 2022-06-03 17:21:00 [facility] FL [facility] OR 2022-06-03 17:21:[facility] Rod [facility] [place] ABG+COOX+NA+K+GLU+CA2+ 2022-06-03 16:52:00 Allan Lynch [facility] ABG+COOX+NA+K+GLU+CA2+ 2022-06-03 16:52:00 Allan Lynch [facility] SURGICAL PATHOLOGY EXAM 2022-06-03 15:42:00 Lawrence Peterson [facility] ABG+COOX+NA+K+GLU+CA2+ 2022-06-03 15:36:00 Allan Lynch [facility] ABG+COOX+NA+K+GLU+CA2+ 2022-06-03 15:36:00 Allan Lynch [facility] HB ABO GROUPING 2022-06-03 13:05:00 Vishnu Zapien [facility] HB ABO GROUPING 2022-06-03 13:05:00 Vishnu Zapien [facility] INFERIOR VENA CAVA FILTER 2022-06-03 12:00:00 [facility] 2022-06-03 12:00:00 Lawrence Peterson [facility] ANGIOPLASTY 2022-06-03 12:00:00 Lawrence Peterson [facility] VASCULAR STENTING 2022-06-03 12:00:00 Lawrence Peterson [facility] INFERIOR VENA CAVA FILTER 2022-06-03 12:00:00 Lawrence Peterson [facility] VENOUS THROMBECTOMY 2022-06-03 12:00:00 Lawrence Peterson [facility] ANGIOPLASTY 2022-06-03 12:00:00 Lawrence Peterson [facility] VASCULAR STENTING 2022-06-03 12:00:00 Lawrence Peterson [facility] PHOSPHORUS 2022-06-03 10:34:00 Prajapati [facility] [place] MAGNESIUM 2022-06-03 10:34:00 Prajapati [facility] [place] BASIC METABOLIC PANEL 2022-06-03 10:34:00 Prajapatiritu Brown [facility] (NA, K, CL, CO2, GLUCOSE, Rod, Juanpablo Medica l Branch BUN, CREATININE, CA) [place] CBC WITH DIFF 2022-06-03 10:34:00 [facility] [place] ACTIVATED PARTIAL 2022-06-03 10:34:00 Joseph Doran [facility] PHOSPHORUS 2022-06-03 10:34:00 [facility] [place] MAGNESIUM 2022-06-03 10:34:00 [facility] [place] BASIC METABOLIC PANEL 2022-06-03 10:34:00 Prajapati [facility] (NA, K, CL, CO2, GLUCOSE, Rod, Juanpablo Medica [facility] BUN, CREATININE, CA) [place] CBC WITH DIFF 2022-06-03 10:34:00 [facility] [place] ACTIVATED PARTIAL 2022-06-03 10:34:00 [facility] 2022-06-02 22:26:00 [facility] 2022-06-02 22:26:00 [facility] ACTIVATED PARTIAL 2022-06-02 15:46:00 Andreea [facility] ACTIVATED PARTIAL 2022-06-02 15:46:00 [facility] PHOS[facility]US 2022-06-02 10:27:00 [facility] [place] MAGNESIUM 2022-06-02 10:27:00 [facility] [place] BASIC METABOLIC PANEL 2022-06-02 10:27:00 Prajapati [facility] (NA, K, CL, CO2, GLUCOSE, Rod, Juanpablo [facility] BUN, CREATININE, CA) [place] CBC WITH DIFF 2022-06-02 10:27:00 [facility] [place] PHOSPHORUS 2022-06-02 10:27:00 [facility] [place] MAGNESIUM 2022-06-02 10:27:00 [facility] [place] BASIC METABOLIC PANEL 2022-06-02 10:27:00 Prajapati [facility] (NA, K, CL, CO2, GLUCOSE, Rod, Juanpablo [facility] BUN, CREATININE, CA) [place] CBC WITH DIFF 2022-06-02 10:27:00 [facility] [place] PHOSPHORUS 2022-06-01 10:05:00 [facility] [place] MAGNESIUM 2022-06-01 10:05:00 [facility] [place] BASIC METABOLIC PANEL 2022-06-01 10:05:00 Prajapati [facility] (NA, K, CL, CO2, GLUCOSE, Rod, Juanpablo [facility] BUN, CREATININE, CA) [place] CBC WITH DIFF 2022-06-01 10:05:00 [facility] [place] PHOSPHORUS 2022-06-01 10:05:00 [facility] [place] MAGNESIUM 2022-06-01 10:05:00 Prajapati [facility] [place] BASIC METABOLIC PANEL 2022-06-01 10:05:00 Prajapati [facility] (NA, K, CL, CO2, GLUCOSE, Rod, [facility] BUN, CREATININE, CA) [place] CBC WITH DIFF 2022-06-01 10:05:00 [facility] [place] PHOSPHORUS 2022-05-31 11:01:00 [facility] [place] MAGNESIUM 2022-05-31 11:01:00 [facility] [place] BASIC METABOLIC PANEL 2022-05-31 11:01:00 [facility] (NA, K, CL, CO2, GLUCOSE, Rod, Juanpablo [facility] BUN, CREATININE, CA) [place] CBC WITH DIFF 2022-05-31 11:01:00 [facility] [place] PROTHROMBIN TIME / INR 2022-05-31 11:01:00 Maurice Gut[facility] ACTIVATED PARTIAL 2022-05-31 11:01:00 Juanpablo Salmon [facility] FIBRINOGEN 2022-05-31 11:01:00 Ryley oPlo [facility] PHOSPHORUS 2022-05-31 11:01:00 [facility] [place] MAGNESIUM 2022-05-31 11:01:00 [facility] [place] BASIC METABOLIC PANEL 2022-05-31 11:01:00 [facility] (NA, K, CL, CO2, GLUCOSE, Rod, Juanpablo Med[facility] BUN, CREATININE, CA) [place] CBC WITH DIFF 2022-05-31 11:01:00 [facility] [place] PROTHROMBIN TIME / INR 2022-05-31 11:01:00 Juanpablo Salmon [facility] ACTIVATED PARTIAL 2022-05-31 11:01:00 Juanpablo Salmon [facility] FIBRINOGEN 2022-05-31 11:01:00 Ryley Polo [facility] PHOSPHORUS 2022-05-31 11:01:00 [facility] [place] MAGNESIUM 2022-05-31 11:01:00 Alo [facility] [place] BASIC METABOLIC PANEL 2022-05-31 11:01:00 Alo denny [facility] (NA, K, CL, CO2, GLUCOSE, Rod, Juanpablo Medica l Branch BUN, CREATININE, CA) [place] CBC WITH DIFF 2022-05-31 11:01:00 Alo [facility] [place] PROTHROMBIN TIME / INR 2022-05-31 11:01:00 Juanpablo [facility] ACTIVATED PARTIAL 2022-05-31 11:01:00 Juanpablo Salmon [facility] FIBRINOGEN 2022-05-31 11:01:00 [facility] [place] TIME OR 2022-05-31 04:56:00 [facility] (NON-REPORTABLE) [facility] FL TIME OR 2022-05-31 04:56:00 [facility] (NON-REPORTABLE) [facility] [place] TIME OR 2022-05-31 04:56:00 [facility] FIBRINOGEN 2022-05-31 01:26:00 [facility] FIBRINOGEN 2022-05-31 01:26:00 [facility] FIBRINOGEN 2022-05-31 01:26:00 [facility] VENOGRAM 2022-05-31 01:17:00 Cris [facility] VENOGRAM 2022-05-31 01:17:00 Cris [facility] FIBRINOGEN 2022-05-30 21:47:00 [facility] FIBRINOGEN 2022-05-30 21:47:00 [facility] FIBRINOGEN 2022-05-30 21:47:00 [facility] FIBRINOGEN 2022-05-30 18:14:00 [facility] FIBRINOGEN 2022-05-30 18:14:00 [facility] FIBRINOGEN 2022-05-30 18:14:00 [facility] FIBRINOGEN 2022-05-30 18:14:00 [facility] FIBRINOGEN 2022-05-30 15:21:00 [facility] FIBRINOGEN 2022-05-30 15:21:00 [facility] FIBRINOGEN 2022-05-30 15:21:00 [facility] FIBRINOGEN 2022-05-30 15:21:00 [facility] FIBRINOGEN 2022-05-30 13:12:00 [facility] FIBRINOGEN 2022-05-30 13:12:00 [facility] FIBRINOGEN 2022-05-30 13:12:00 [facility] FIBRINOGEN 2022-05-30 13:12:00 [facility] FIBRINOGEN 2022-05-30 11:13:00 [facility] FIBRINOGEN 2022-05-30 11:13:00 [facility] FIBRINOGEN 2022-05-30 11:13:00 [facility] FIBRINOGEN 2022-05-30 11:13:00 [facility] PHOSPHORUS 2022-05-30 09:27:00 [facility] MAGNESIUM 2022-05-30 09:27:00 [facility] BASIC METABOLIC PANEL 2022-05-30 09:27:00 [facility], CL, CO2, GLUCOSE, Medica l Branch BUN, CREATININE, CA) CBC WITH DIFF 2022-05-30 09:27:00 [facility] ACTIVATED PARTIAL 2022-05-30 09:27:00 [facility] FIBRINOGEN 2022-05-30 09:27:00 [facility] PHOSPHORUS 2022-05-30 09:27:00 [facility] MAGNESIUM 2022-05-30 09:27:00 [facility] BASIC METABOLIC PANEL 2022-05-30 09:27:00 [facility] (NA, K, CL, CO2, GLUCOSE, Medica l Branch BUN, CREATININE, CA) CBC WITH DIFF 2022-05-30 09:27:00 [facility] ACTIVATED PARTIAL 2022-05-30 09:27:00 [facility] FIBRINOGEN 2022-05-30 09:27:00 [facility] PHOSPHORUS 2022-05-30 09:27:00 [facility] MAGNESIUM 2022-05-30 09:27:00 [facility] BASIC METABOLIC PANEL 2022-05-30 09:27:00 [facility] (NA, K, CL, CO2, GLUCOSE, Medica l Branch BUN, CREATININE, CA) CBC WITH DIFF 2022-05-30 09:27:00 [facility] ACTIVATED PARTIAL 2022-05-30 09:27:00 [facility] FIBRINOGEN 2022-05-30 09:27:00 [facility] PHOSPHORUS 2022-05-30 09:27:00 [facility] MAGNESIUM 2022-05-30 09:27:00 [facility] BASIC METABOLIC PANEL 2022-05-30 09:27:00 Ryley Polo [facility] (NA, K, CL, CO2, GLUCOSE, Medica l Branch BUN, CREATININE, CA) CBC WITH DIFF 2022-05-30 09:27:00 [facility] ACTIVATED PARTIAL 2022-05-30 09:27:00 [facility] FIBRINOGEN 2022-05-30 09:27:00 [facility] FIBRINOGEN 2022-05-30 06:58:00 [facility] FIBRINOGEN 2022-05-30 06:58:00 [facility] FIBRINOGEN 2022-05-30 06:58:00 [facility] FIBRINOGEN 2022-05-30 06:58:00 [facility] ACTIVATED PARTIAL 2022-05-30 06:13:00 [facility] ACTIVATED PARTIAL 2022-05-30 06:13:00 [facility] ACTIVATED PARTIAL 2022-05-30 06:13:00 [facility] ACTIVATED PARTIAL 2022-05-30 06:13:00 [facility] FIBRINOGEN 2022-05-30 04:43:00 Cris [facility] FIBRINOGEN 2022-05-30 04:43:00 Cris, [facility] FIBRINOGEN 2022-05-30 04:43:00 Cris [facility] FIBRINOGEN 2022-05-30 04:43:00 Cris [facility] FIBRINOGEN 2022-05-29 23:24:00 [facility] FIBRINOGEN 2022-05-29 23:24:00 [facility] FIBRINOGEN 2022-05-29 23:24:00 [facility] FIBRINOGEN 2022-05-29 23:24:00 [facility] FIBRINOGEN 2022-05-29 21:10:00 Cris [facility] FIBRINOGEN 2022-05-29 21:10:00 Cris [facility] FIBRINOGEN 2022-05-29 21:10:00 Cris [facility] FIBRINOGEN 2022-05-29 21:10:00 Cris [facility] BASIC METABOLIC PANEL 2022-05-29 14:55:00 Armando Pandey [facility] [place] (NA, K, CL, CO2, GLUCOSE, Medica l Branch BUN, CREATININE, CA) CBC WITH DIFF 2022-05-29 14:55:00 [facility]-05-29 14:55:00 Cris [facility] BASIC METABOLIC PANEL 2022-05-29 14:55:00 Dannie Armando [facility] [place] (NA, K, CL, CO2, GLUCOSE, Medica l Branch BUN, CREATININE, CA) CBC WITH DIFF 2022-05-29 14:55:00 [facility] 2022-05-29 14:55:00 Cris [facility] BASIC METABOLIC PANEL 2022-05-29 14:55:00 Dannie Armando [facility] (NA, K, CL, CO2, GLUCOSE, Medica l Branch BUN, CREATININE, CA) CBC WITH DIFF 2022-05-29 14:55:00 [facility] 2022-05-29 14:55:00 Cris [facility] BASIC METABOLIC PANEL 2022-05-29 14:55:00 Dannie Armando [facility] (NA, K, CL, CO2, GLUCOSE, Medica l Branch BUN, CREATININE, CA) CBC WITH DIFF 2022-05-29 14:55:00 [facility] 2022-05-29 14:55:00 Cris [facility] FL TIME OR 2022-05-29 14:03:00 [facility] (NON-REPORTABLE) [facility] [place] TIME OR 2022-05-29 14:03:00 [facility] (NON-REPORTABLE) [facility] [place] TIME OR 2022-05-29 14:03:00 [facility] (NON-REPORTABLE) [facility] [place] TIME OR 2022-05-29 14:03:00 [facility] (NON-REPORT[facility]) [facility] VENOUS THROMBOLYSIS 2022-05-29 12:05:00 Cris [facility] VENOUS THROMBOLYSIS 2022-05-29 12:05:00 Cris [facility] MAGNESIUM 2022-05-29 11:11:00 Reyna [facility] BASIC METABOLIC PANEL 2022-05-29 11:11:00 Amber Orellana [facility] (NA, K, CL, CO2, GLUCOSE, Medica l Branch BUN, CREATININE, CA) CBC WITHOUT DIFF 2022-05-29 11:11:00 [facility] 2022-05-29 11:11:00 [facility] 2022-05-29 11:11:00 [facility]OLIC PANEL 2022-05-29 11:11:00 Amber Orellana [facility] (NA, K, CL, CO2, GLUCOSE, Medica l Branch BUN, CREATININE, CA) CBC WITHOUT DIFF 2022-05-29 11:11:00 Reyna [facility] ACTIVATED PARTIAL 2022-05-29 11:11:00 Reyna [facility] MAGNESIUM 2022-05-29 11:11:00 Reyna [facility] BASIC METABOLIC PANEL 2022-05-29 11:11:00 [facility], [facility], CL, CO2, GLUCOSE, Medica l Branch BUN, CREATININE, CA) CBC WITHOUT DIFF 2022-05-29 11:11:00 [facility] 2022-05-29 11:11:00 [facility]UM 2022-05-29 11:11:00 Reyna [facility] BASIC METABOLIC PANEL 2022-05-29 11:11:[address] [facility] (NA, K, CL, CO2, GLUCOSE, Medica l Branch BUN, CREATININE, CA) CBC WITHOUT DIFF 2022-05-29 11:11:00 Reyna [facility] ACTIVATED PARTIAL 2022-05-29 11:11:00 Reyna [facility] ABORH CONFIRMATION (LAB 2022-05-28 23:34:00 Val [facility] ONLY) Medical Branch ABORH CONFIRMATION (LAB 2022-05-28 23:34:00 Val [facility] ONLY) Medical Branch ABORH CONFIRMATION (LAB 2022-05-28 23:34:00 Val [facility] ONLY) Medical Branch ABORH CONFIRMATION (LAB 2022-05-28 23:34:00 Val [facility] ONLY) Medical Branch HB ABO GROUPING 2022-05-28 23:00:00 [facility] HB ABO GROUPING 2022-05-28 23:00:00 [facility] HB ABO GROUPING 2022-05-28 23:00:00 [facility] HB ABO GROUPING 2022-05-28 23:00:00 [facility] ACTIVATED PARTIAL 2022-05-28 22:59:00 Reyna [facility] ACTIVATED PARTIAL 2022-05-28 22:59:00 Reyna [facility] ACTIVATED PARTIAL 2022-05-28 22:59:00 [facility] 2022-05-28 22:59:00 [facility] PROT[facility]OM[facility] / INR 2022-05-28 17:23:00 Amber [facility] ACTIVATED PARTIAL 2022-05-28 17:23:00 [facility] PROTHROMBIN TIME / INR 2022-05-28 17:23:00 Amber [facility]ana [facility] ACTIVATED PARTIAL 2022-05-28 17:23:00 [facility] PROT[facility]OMBIN TIME / INR 2022-05-28 17:23:00 Amber [facility]rellana [facility] ACTIVATED PARTIAL 2022-05-28 17:23:00 [facility] PROTHROMBIN TIME / INR 2022-05-28 17:23:00 Amber [facility]rellana [facility] ACTIVATED PARTIAL 2022-05-28 17:23:00 [facility] BASIC METABOLIC PANEL 2022-05-28 09:09:00 Romario Friedman [facility] (NA, K, CL, CO2, GLUCOSE, Medica l Branch BUN, CREATININE, CA) CBC WITH DIFF 2022-05-28 09:09:00 Romario Friedman [facility] FACTOR 5 LEIDEN 2022-05-28 09:09:00 Liseth Vitale Coleman [facility] FACTOR 2 [id number] MUTATION 2022-05-28 09:09:00 [facility] F5 LEIDEN AND F2 [id number] 2022-05-28 09:09:00 Liseth Vitale [facility] BASIC METABOLIC PANEL 2022-05-28 09:09:00 Romario Friedman [facility] (NA, K, CL, CO2, GLUCOSE, Medica l Branch BUN, CREATININE, CA) CBC WITH DIFF 2022-05-28 09:09:00 Romario Friedman [facility] FACTOR 5 LEIDEN 2022-05-28 09:09:00 [facility] FACTOR 2 [id number] MUTATION 2022-05-28 09:09:00 Liseth Vitale [facility] F5 LEIDEN AND F2 [id number] 2022-05-28 09:09:00 Liseth Vitale [facility] BASIC METABOLIC PANEL 2022-05-28 09:09:00 Romario Friedman [facility] (NA, K, CL, CO2, GLUCOSE, Medica l Branch BUN, CREATININE, CA) CBC WITH DIFF 2022-05-28 09:09:00 Romario Friedman [facility] FACTOR 5 LEIDEN 2022-05-28 09:09:00 [facility] FACTOR 2 [id number] MUTATION 2022-05-28 09:09:00 Liseth Vitale [facility] F5 LEIDEN AND F2 [id number] 2022-05-28 09:09:00 Liseth Vitale [facility] BASIC METABOLIC PANEL 2022-05-28 09:09:00 Romario Friedman [facility] (NA, K, CL, CO2, GLUCOSE, Medica l Branch BUN, CREATININE, CA) CBC WITH DIFF 2022-05-28 09:09:00 Romario Friedman [facility] FACTOR 5 LEIDEN 2022-05-28 09:09:00 [facility] FACTOR 2 [id number] MUTATION 2022-05-28 09:09:00 Liseth Vitale [facility] F5 LEIDEN AND F2 [id number] 2022-05-28 09:09:00 Liseth Vitale [facility] TRANSTHORACIC ECHO (TTE) 2022-05-27 15:47:00 Romario Friedman [facility] W/ CONTRAST Medical [facility] TRANSTHORACIC ECHO (TTE) 2022-05-27 15:47:00 Romario [facility] [place] COMPLETE W/ CONTRAST Medical [facility] TRANSTHORACIC ECHO (TTE) 2022-05-27 15:47:00 Romario Friedman [facility] COMPLETE W/ CONTRAST [facility] TRANSTHORACIC ECHO (TTE) 2022-05-27 15:47:00 Romario Freidman [facility] COMPLETE W/ CONTRAST Medical [facility] CT ABDOMEN PELVIS W 2022-05-27 11:28:06 Edionwe, [facility] CONTRAST Medical Branch CT ABDOMEN PELVIS W 2022-05-27 11:28:06 Edionwe, [facility] CONTRAST Medical Branch CT ABDOMEN PELVIS W 2022-05-27 11:28:06 Edionwe, [facility] CONTRAST Medical Branch CT ABDOMEN PELVIS W 2022-05-27 11:28:06 Edionwe, [facility] CONTRAST Medical Branch BASIC METABOLIC PANEL 2022-05-27 09:45:00 [facility] ([facility], K, CL, CO2, GLUCOSE, Medica l Branch BUN, CREATININE, CA) CBC WITH DIFF 2022-05-27 09:45:00 [facility] GLYCOSYLATED HEMOGLOBIN 2022-05-27 09:45:00 [facility] Medical [place] BASIC METABOLIC PANEL 2022-05-27 09:45:00 [facility] ([facility], K, CL, CO2, GLUCOSE, Medica l Branch BUN, CREATININE, CA) CBC WITH DIFF 2022-05-27 09:45:00 [facility] GLYCOSYLATED HEMOGLOBIN 2022-05-27 09:45:00 [facility] (A1C) Medical Branch BASIC METABOLIC PANEL 2022-05-27 09:45:00 [facility] (NA, K, CL, CO2, GLUCOSE, Medica l Branch BUN, CREATININE, CA) CBC WITH DIFF 2022-05-27 09:45:00 [facility] GLYCOSYLATED HEMOGLOBIN 2022-05-27 09:45:00 [facility] (A1C) Medical [place] BASIC METABOLIC PANEL 2022-05-27 09:45:00 [facility] (NA, K, CL, CO2, GLUCOSE, Medica l Branch BUN, CREATININE, CA) CBC WITH DIFF 2022-05-27 09:45:00 [facility] GLYCOSYLATED HEMOGLOBIN 2022-05-27 09:45:00 Liseth Vitale [facility] (A1C) Medical [place] DUPLEX VENOUS LEGS 2022-05-27 01:08:52 Meche Zapata [facility] BILATERAL - BY VASCULAR [facility] LAB DUPLEX VENOUS LEGS 2022-05-27 01:08:52 Meche Zapata [facility] BILATERAL - BY VASCULAR [facility] LAB DUPLEX VENOUS LEGS 2022-05-27 01:08:52 Meche Zapata [facility] BILATERAL - BY VASCULAR [facility] LAB DUPLEX VENOUS LEGS 2022-05-27 01:08:52 Meche Zapata [facility] BILATERAL - BY VASCULAR [facility] LAB URINE DRUG (IMMUNOASSAY) 2022-05-26 22:13:[address] [facility] SCREEN URINALYSIS 2022-05-26 22:13:00 Meche Zapata [facility] URINE DRUG (IMMUNOASSAY) 2022-05-26 22:13:[address] [facility] SCREEN URINALYSIS 2022-05-26 22:13:00 Meche Zapata [facility] URINE DRUG (IMMUNOASSAY) 2022-05-26 22:13:[address] [facility] SCREEN URINALYSIS 2022-05-26 22:13:00 Meche Zapata [facility] URINE DRUG (IMMUNOASSAY) 2022-05-26 22:13:[address] [facility] SCREEN URINALYSIS 2022-05-26 22:13:00 Meche Zapata [facility] HB ECG ROUTINE & RHYTHM 2022-05-26 21:43:55 Meche Zapata [facility] HB ECG ROUTINE & RHYTHM 2022-05-26 21:43:55 Meche Zapata [facility] HB ECG ROUTINE & RHYTHM 2022-05-26 21:43:55 Meche Zapata [facility] HB ECG ROUTINE & RHYTHM 2022-05-26 21:43:55 Meche Zapata [facility] XR CHEST 1 VW 2022-05-26 21:37:08 Meche Zapata [facility] XR CHEST 1 2022-05-26 21:37:08 Meche Zapata [facility] XR CHEST 1 2022-05-26 21:37:08 Meche Zapata [facility] XR CHEST 1 2022-05-26 21:37:08 Meche Zapata [facility] MAGNESIUM 2022-05-26 21:20:00 Meche Zapata [facility] TROPONIN I 2022-05-26 21:20:00 Meche Zapata [facility] COMP. METABOLIC PANEL 2022-05-26 21:20:00 Meche Zapata [facility] ([id number]) [facility] CBC WITH DIFF 2022-05-26 21:20:00 Meche Zapata [facility] N-TERMINAL PRO-BNP 2022-05-26 21:20:00 Meche Zapata [facility] MAGNESIUM 2022-05-26 21:20:00 Meche Zapata [facility] TROPONIN I 2022-05-26 21:20:00 Meche Zapata [facility] COMP. METABOLIC PANEL 2022-05-26 21:20:00 Meche Zapata [facility] ([id number]) [facility] CBC WITH DIFF 2022-05-26 21:20:00 Meche Zapata [facility] N-TERMINAL PRO-BNP 2022-05-26 21:20:00 Meche Zapata [facility] MAGNESIUM 2022-05-26 21:20:00 Meche Zapata [facility] TROPONIN I 2022-05-26 21:20:00 Meche Zapata [facility] COMP. METABOLIC PANEL 2022-05-26 21:20:00 Meche Zapata [facility] ([id number]) [facility] CBC WITH DIFF 2022-05-26 21:20:00 Meche Zapata [facility] N-TERMINAL PRO-BNP 2022-05-26 21:20:00 Meche Zapata [facility] MAGNESIUM 2022-05-26 21:20:00 Meche Zapata [facility] TROPONIN I 2022-05-26 21:20:00 Meche Zapata [facility] COMP. METABOLIC PANEL 2022-05-26 21:20:00 Meche Zapata [facility] ([id number]) [facility] CBC WITH DIFF 2022-05-26 21:20:00 Meche Zapata [facility] N-TERMINAL PRO-BNP 2022-05-26 21:20:00 Meche Zapata [facility] HOSPITAL ADMISSION 2022-05-26 05:01:00 Doctor Unasari, [facility] Name [facility] HOSPITAL ADMISSION 2022-05-26 05:01:00 Doctor Sergo, [facility] Name [facility] HOSPITAL ADMISSION 2022-05-26 05:01:00 Doctor Sergo, [facility] XR LUMBAR SPINE 3 VW 2022-05-23 09:47:55 Carlos Corbin [facility] DISCLOSURE AND CONSENT, 2022-05-19 05:01:00 Doctor Unasari, [facility] MEDICAL AND SURGICAL [place] [facility] PROCEDURES PATIENT QUESTIONNAIRE 2022-05-17 05:01:00 Doctor Sergo, [facility] [place] [facility] INSURANCE CORRESPONDENCE 2022-05-16 05:01:00 Doctor Unasari, [employer] [facility] [place] [facility] INSURANCE CORRESPONDENCE 2022-05-04 05:01:00 Doctor Sergo, [facility] [place] [facility] DME/SUPPLY JUSTIFICATION 2022-04-22 06:01:00 Doctor Sergo, [facility] [place] [facility] PATIENT FINANCIAL 2022-04-13 15:27:54 Doctor Sergo, [facility] POLICY [place] [facility] SLEEP STUDY DATA REPORT 2022-04-02 06:01:00 Doctor Sergo [facility] Name Medical Branch XR HIPS 2 VW RIGHT 2022-03-24 14:56:12 Susan Manjarrez [facility] Medical Branch MR LUMBAR SPINE WO 2022-03-24 14:41:33 Delroy Farah [facility] Medical Branch INSURANCE CORRESPONDENCE 2022-02-15 06:01:00 Doctor Sergo, [facility] Name Medical Branch EXTERNAL PROVIDER RECORDS 2022-02-03 06:01:00 Doctor Sergo [facility] [place] [facility] REFERRAL- 2022-01-17 06:01:00 Doctor Sergo [facility] REQUEST/RESPONSE [place] [facility] ASSIGNMENT OF BENEFITS 2021-12-08 15:11:38 Doctor Sergo, [facility] Name Medical Branch SLEEP STUDY DATA REPORT 2021-11-04 05:01:00 Doctor Sergo [facility] Name Medical Branch Plan of Care Planned Activity Planned Date Details Comments Source Future Scheduled 2022-10-[address] [facility] Test 00:00:00 (Season Ended) [code = [facility] Center INFLUENZA VACCINE (Season Ended)] Future Scheduled 2022-10-[address] [facility] Test 00:00:00 (Season Ended) [code = Medic al Center INFLUENZA VACCINE (Season Ended)] Future Scheduled 2022-07-19 [facility] 13:32:24 malignant neoplasm of colon (procedure) [code = 982063059] Future Scheduled 2022-07-19 [facility] Test 13:32:24 malignant neoplasm of colon (procedure) [code = 918028674] Future Scheduled 2022-07-19 [facility] Test 13:32:24 malignant neoplasm of colon (procedure) [code = 665083207] Future Scheduled 2022-07-19 COVID[facility]:32:24 [code = COVID-19 VACCINE (#1)] Future Scheduled 2022-07-19 [facility]atitis [facility] 13:32:24 (procedure) [code = 377077166] Future Scheduled 2022-07-19 [facility] Test 13:32:24 malignant neoplasm of colon (procedure) [code = 760633006] Future Scheduled 2022-07-19 [facility] Test 13:32:24 malignant neoplasm of colon (procedure) [code = 770498615] Future Scheduled 2022-07-19 SHINGLES [facility]ACCINES ([facility] 13:32:24 of 2) [code = SHINGLES VACCINES (1 of 2)] Future Scheduled 2022-07-19 [facility]ACCINE [facility] 13:32:24 [code = INFLUENZA VACCINE] Future Scheduled 2022-07-19 [facility] Test 13:32:24 malignant neoplasm of colon (procedure) [code = 098531886] Future Scheduled 2022-07-19 [facility] Test 13:32:24 malignant neoplasm of colon (procedure) [code = 550216529] Future Scheduled 2022-07-19 [facility] Test 13:32:24 malignant neoplasm of colon (procedure) [code = 014175271] Future Scheduled 2022-07-19 COVID-19 VACCINE (#1) [facility] 13:32:24 [code = COVID-19 VACCINE (#1)] Future Scheduled 2022-07-19 Hepatitis C screening [facility] 13:32:24 (procedure) [code = 027940094] Future Scheduled 2022-07-19 [facility] Test 13:32:24 malignant neoplasm of colon (procedure) [code = [id number]] Future Scheduled 2022-07-19 [facility] Test 13:32:24 malignant neoplasm of colon (procedure) [code = 069943304] Future Scheduled 2022-07-19 SHINGLES VACCINES (1 [facility] 13:32:24 of 2) [code = SHINGLES VACCINES (1 of 2)] Future Scheduled 2022-07-19 IN[facility]UENZA VACCINE [facility] 13:32:24 [code = INFLUENZA VACCINE] Future Scheduled 2022-07-19 [facility] Test 13:32:24 malignant neoplasm of colon (procedure) [code = 068073084] Future Scheduled 2022-07-19 [facility] Test 13:32:24 malignant neoplasm of colon (procedure) [code = 569565932] Future Scheduled 2022-07-19 [facility] Test 13:32:24 malignant neoplasm of colon (procedure) [code = 729071670] Future Scheduled 2022-07-19 COVID-19 [facility]ACCINE [facility] 13:32:24 [code = COVID-19 VACCINE (#1)] Future Scheduled 2022-07-19 Hepatitis C [facility] 13:32:24 (procedure) [code = 796072489] Future Scheduled 2022-07-19 [facility] Test 13:32:24 malignant neoplasm of colon (procedure) [code = 928996414] Future Scheduled 2022-07-19 [facility] Test 13:32:24 malignant neoplasm of colon (procedure) [code = 836459080] Future Scheduled 2022-07-19 SHINGLES VACCINES (1 Met [facility] Test 13:32:24 of 2) [code = SHINGLES VACCINES (1 of 2)] Future Scheduled 2022-07-19 INFLUENZA VACCINE [facility] 13:32:24 [code = INFLUENZA VACCINE] Future Scheduled 2022-07-10 COVID-19 VACCINE (#1) [facility] 23:57:37 [code = COVID-19 VACCINE (#1)] Future Scheduled 2022-07-10 Hepatitis C screening [facility] 23:57:37 (procedure) [code = 862754483] Future Scheduled 2022-07-10 COLONOSCOPY SCREENING [facility] 23:57:37 [code = COLONOSCOPY SCREENING] Future Scheduled 2022-07-10 SHINGLES VACCINES (1 Met [facility] Test 23:57:37 of 2) [code = SHINGLES VACCINES (1 of 2)] Future Scheduled 2022-07-10 INFLUENZA VACCINE [facility] Test 23:57:37 [code = INFLUENZA VACCINE] Future Scheduled 2022-07-10 COVID-19 VACCINE (#1) [facility] 23:57:37 [code = COVID-19 VACCINE (#1)] Future Scheduled 2022-07-10 [facility] C [facility] 23:57:37 (procedure) [code = 315766805] Future Scheduled 2022-07-10 [facility]ING [facility] 23:57:37 [code = COLONOSCOPY SCREENING] Future Scheduled 2022-07-10 [facility]INES [facility]:57:37 of 2) [code = SHINGLES VACCINES (1 of 2)] Future Scheduled 2022-07-10 INFLUENZA VACCINE [facility] 23:57:37 [code = INFLUENZA VACCINE] Future Scheduled 2022-07-10 COVID[facility]:57:37 [code = COVID-19 VACCINE (#1)] Future Scheduled 2022-07-10 [facility] C [facility] 23:57:37 (procedure) [code = 247630622] Future Scheduled 2022-07-10 [facility] Test 23:57:37 malignant neoplasm of colon (procedure) [code = 604017068] Future Scheduled 2022-07-10 SHINGLES VACCINES (1 Met [facility] Test 23:57:37 of 2) [code = SHINGLES VACCINES (1 of 2)] Future Scheduled 2022-07-10 INFLUENZA VACCINE [facility] 23:57:37 [code = INFLUENZA VACCINE] Future Scheduled 2022-07-03 COVID-19 [facility]ACCINE (#1[facility] 23:24:31 [code = COVID-19 VACCINE (#1)] Future Scheduled 2022-07-03 [facility] C [facility] 23:24:31 (procedure) [code = 663090389] Future Scheduled 2022-07-03 [facility]ING [facility] 23:24:31 [code = COLONOSCOPY SCREENING] Future Scheduled 2022-07-03 SHINGLES VACCINES ([facility] 23:24:31 of 2) [code = SHINGLES VACCINES (1 of 2)] Future Scheduled 2022-07-03 INFLUENZA VACCINE [facility] 23:24:31 [code = INFLUENZA VACCINE] Future Scheduled 2022-05-18 COVID-19 VACCINE (#1) [facility] 20:48:55 [code = COVID-19 VACCINE (#1)] Future Scheduled 2022-05-18 [facility] C [facility] 20:48:55 (procedure) [code = 419815259] Future Scheduled 2022-05-18 COLONOSCOPY SCREENING [facility] 20:48:55 (procedure) [code = 540454746] Future Scheduled 2022-05-18 COLONOSCOPY SCREENING [facility] [...] Future Scheduled 2021-10-15 HEPATITIS B VACCINES Met [facility] Test 19:26:49 (1 of 3 - 3-dose series) [code = HEPATITIS B VACCINES (1 of 3 - 3-dose series)] Future Scheduled 2021-10-15 COVID-19 VACCINE (#1) [facility] 19:26:49 [code = COVID-19 VACCINE (#1)] Future Scheduled 2021-10-15 Hepatitis C screening [facility] Test 19:26:49 (procedure) [code = 054470333] Future Scheduled 2021-10-15 COLONOSCOPY SCREENING [facility] Test 19:26:49 [code = COLONOSCOPY SCREENING] Future Scheduled 2021-10-15 SHINGLES VACCINES (1 Met [facility] Test 19:26:49 of 2) [code = SHINGLES VACCINES (1 of 2)] Future Scheduled 2021-10-15 INFLUENZA VACCINE [facility] Test 19:26:49 [code = INFLUENZA VACCINE] Future Scheduled 2021-10-12 HEPATITIS B VACCINES Met [facility] Test 17:47:43 (1 of 3 - 3-dose series) [code = HEPATITIS B VACCINES (1 of 3 - 3-dose series)] Future Scheduled 2021-10-12 COVID-19 VACCINE (#1) [facility] Test 17:47:43 [code = COVID-19 VACCINE (#1)] Future Scheduled 2021-10-12 Hepatitis C screening [facility] Test 17:47:43 (procedure) [code = 616394925] Future Scheduled 2021-10-12 COLONOSCOPY SCREENING [facility] Test 17:47:43 [code = COLONOSCOPY SCREENING] Future Scheduled 2021-10-12 SHINGLES VACCINES (1 Met [facility] Test 17:47:43 of 2) [code = SHINGLES VACCINES (1 of 2)] Future Scheduled 2021-10-12 INFLUENZA VACCINE Method [facility] Test 17:47:43 [code = INFLUENZA [...] [facility] s Test 00:00:00 (procedure) [code = [facility] 04706193] Future Scheduled [address] [facility] 00:[facility]:00 (procedure) [code = [facility] 60361613] Future Scheduled 1981 DTAP/TDAP/TD VACCINES [facility] [...] [facility] colon (procedure) [code = 018916529] Future Scheduled [address] [facility] ne[facility] (procedure) [code = 536595244] Future Scheduled [address] [facility]00 [facility] (procedure) [code = 146118361] Future Scheduled [address] [facility] 00[facility]:00 malignant ne[facility] colon (procedure) [code = 677032315] Future Scheduled 1962 Sigmoidoscopy [facility]] Medical John portillo Future Scheduled [address] [facility] Test 00:00:00 (combo) [code = CT Medical C enter Colonography (combo)] Future Scheduled [address] [facility] [facility] Test 00:00:00 malignant neoplasm of [facility] colon (procedure) [code = 105742853] Future Scheduled [address] [facility] Test 00:00:00 malignant neoplasm of [facility] colon (procedure) [code = 424237412] Future Scheduled [address] [facility] Test 00:00:00 malignant neoplasm of [facility] colon (procedure) [code = 857713939] Future Scheduled [address] [facility] Test 00:00:00 malignant neoplasm of [facility] colon (procedure) [code = 104444202] Future Scheduled 1962 [facility]oidoscopy [facility]oscopy] Medical John portillo Encounters Start End Encounter Admission Attending Care Care Encounter Source Date/Time Date/Time Type Type Clinicians Facility Department ID 2022-06-11 Outpatient 3 [id number] [place] [id number] [facility] 03:48:38 [facility] [place] 2022-06-10 Outpatient 3 [id number] [place] [id number] [facility] 02:10:29 04[facility] [place] 2022-06-09 Outpatient 3 [id number] [place] [id number] [facility] 10:37:19 0427 [facility] [place] 2022-06-01 Outpatient R [facility] TIFFANY [id number] Univers 14:27:32 IZABELA PHAM [facility] 2022-06-01 Outpatient 3 [id number] ENC[place] REF [id number] [facility] 12:13:29 0419 [facility] [place] 2020-12-14 Emergency [facility] [id number] Univers 03:38:20 ity of [facility] 2020-12-14 Emergency [facility] [id number] Univers 02:28:47 ity of [facility] 2020-12-14 Emergency [facility] [id number] Univers 02:03:46 ity of [facility] 2020-12-13 Emergency [facility] [id number] Univers 15:19:05 ity of [facility] 2020-02-02 Inpatient [facility] [id number] [facility] 19:02:00 30 2020-02-02 Inpatient [facility] [id number] [facility] 19:02:00 30 2022-09-15 2022-09-15 Outpatient R LAWRENCE PETERSON [facility] 1 [id number] Univers 10:00:00 10:00:00 LAWRENCE PETERSON ity [facility] 2022-08-03 2022-08-03 Outpatient R JERRICA [facility] [id number] Univers 10:15:00 10:15:00 ROBINA ity [facility] 2022-07-20 2022-07-20 Emergency X [facility] ERT [id number] Univers 04:39:00 05:00:00 ity of [facility] 2022-07-20 2022-07-20 Emergency [facility] 1.2.946.693 [id number] Univers 04:39:00 05:00:00 [place] 350.1.13.10 i ty of ANUJABRAZO [facility] 4.2.7.2.686 [facility] [id number] [place] [address] [place] 2022-07-20 2022-07-20 Telephone [facility] 1.2.840.114 [id number] Univers 00:00:00 00:00:00 [facility] 350.1.13.10 it y of [place] 4.2.7.2.686 Neal as JOEL?BLEA [phone] Mo al[address] MEDICAL OFFICE BUILDING 2022-07-18 2022-07-18 Transition ANASTASIIA Calderon 1.2.840.114 [id number] Univers 00:00:00 00:00:00 of Care Elyssa BENNETT 350.1.13.10 i ty of [place] [id number] [facility] [address] 2022-07-16 2022-07-16 Outpatient U LAWRENCE PETERSON [facility] SV 1 [id number] Univers 09:11:00 12:30:00 LAWRENCE PETERSON ity [facility] 2022-07-16 2022-07-16 Hospital TYE Peterson 1.2.840.114 [id number] Univers 09:11:00 12:30:00 Encounter Lawrence BEARD 350.1.13.10 ity of [facility] 4.2.7.2.686 Neal as [phone] [facility] [address] 2022-07-12 2022-07-12 Inpatient ER ROMARIO [facility] Medical ICU [id number] [facility] 04:02:00 14:55:00 [place] 2022-07-11 2022-07-11 Emergency X [facility] ERT [id number] Univers 10:09:00 11:10:00 [facility] 2022-07-11 2022-07-11 Emergency X [facility] ERT [id number] Univers 10:09:00 11:10:00 [facility] 2022-07-11 2022-07-11 Emergency Nini, TRAUMA 1.2.231.578 [id number] Univers 10:09:00 11:10:00 [facility] 350.1.13.10 [place] [id number] [facility] [address] 2022-07-11 2022-07-11 Emergency X NANCY [facility] ERT [id number] Univers 04:26:00 07:38:00 RAMANA [facility] 2022-07-11 2022-07-11 Emergency Morrical, Ángel O TRAU[place] 1.2. 840.114 [id number] Univers 04:26:00 07:38:00 Ramana Cruz [facility] 350.1.13 .10 ity [place] [id number] [facility] [address] 2022-07-11 2022-07-11 Emergency [facility] 1.2.806.056 [id number] Univers 00:22:00 00:26:00 [place] 350.1.13.10 i ty of [place] 4.2.7.2.686 [place] [facility] [id number] [address] 2022-07-08 2022-07-08 Emergency X [facility] ERT [id number] Univers 13:26:00 13:45:00 ity [facility] 2022-07-08 2022-07-08 Emergency TRAU[place] 1.2.670.964 [id number] Univers 13:26:00 13:45:00 CENTER 350.1.13.10 [place] [id number] [address] 2022-07-05 2022-07-05 Outpatient Zeke BECERRIL [facility] [id number] Univers 14:30:00 14:30:00 [facility] 2022-07-05 2022-07-05 Outpatient Zeke BECERRIL [facility] [id number] Univers 14:30:00 14:30:00 [facility] 2022-07-05 2022-07-05 Emergency X [facility] ERT [id number] Univers 05:53:00 11:12:00 [facility] 2022-07-05 2022-07-05 Emergency Hilda Miller [place] 1.2.840 .114 [id number] Univers 05:53:00 11:12:00 Tracey Trinidad BESSEMER 350.1.13.10 [place] [id number] [address] 2022-07-04 2022-07-04 Emergency [facility] 1.2.215.958 [id number] Univers 14:13:00 14:19:00 [place] 350.1.13.10 i ty of [place] 4.2.7.2.686 [place] [facility] [id number] [address] 2022-07-04 2022-07-04 Outpatient Zeke [facility] [id number] Univers 14:00:00 14:00:00 ROBINA [facility] 2022-07-04 2022-07-04 Outpatient R [facility] ERT [id number] Univers 14:00:00 14:00:00 [facility] 2022-07-04 2022-07-04 Telephone [facility] 1.2.840.114 [id number] Univers 00:00:00 00:00:00 Robina HEALTH 350.1.13.10 it y of [place] 4.2.7.2.686 Neal as JOEL?BLEA [id number] [address] OFFICE [facility] 2022-07-04 2022-07-04 [facility] 1.2.840.114 [id number] Univers 00:00:00 00:00:00 Robina HEALTH 350.1.13.10 it y of [place] 4.2.7.2.686 Neal as JOEL?BLEA [id number] [address] OFFICE [facility] 2022-06-28 2022-06-28 Telephone [facility] 1.2.714.915 [id number] Univers 00:00:00 00:00:00 [facility] 350.1.13.10 i ty of [place].2.[place] [id number] [address] OFFICE [facility] 2022-06-27 2022-06-27 Outpatient R IZABELA PHAM [facility] [id number] Univers 13:15:00 13:15:00 IZABELA PHAM [facility] 2022-06-21 2022-06-23 Inpatient ER RHETT MOORE Oncology [id number] [facility] 08:54:00 18:00:00 [facility] 2022-06-21 2022-06-23 Hospital ER Sunny [facility] [id number] [facility] 08:54:00 18:00:00 Encounter Olga Abraham, [facility] 2022-06-22 2022-06-22 Telephone [facility] 1.2.840.114 [id number] Univers 00:00:00 00:00:00 Robina HEALTH 350.1.13.10 it y of [place] 4.2.7.2.686 Neal as JOEL?BLEA [id number] Mo alpa[address] OFFICE BUILDING 2022-06-21 2022-06-21 Orders Doctor LAKESHIA 1.2.840.114 [id number] Univers 00:00:00 00:00:00 Only Unassigned, CHIRAG 350.1.13.10 ity of [place] [facility] 4.2.7.2.686 Neal as [id number] [address] 2022-06-17 2022-06-17 Telephone Jerrica [facility] 1.2.840.114 [id number] Univers 00:00:00 00:00:00 [facility] 350.1.13.10 it y of José Miguel TORREZ 4.2.7.2.686 Neal as JOEL?BLEA [id number] [address] OFFICE [facility] 2022-06-16 2022-06-16 Office Donna [facility] 1.2.840.114 [id number] Univers 11:30:00 11:45:00 Visit [facility] 350.1.13.10 i ty of [place] [id number] [address] OFFICE [facility] 2022-06-16 2022-06-16 Outpatient R LAWRENCE PETERSON [facility] 1 [id number] Univers 11:30:00 11:30:00 LAWRENCE PETERSON ity [facility] 2022-06-16 2022-06-16 Telephone Donna [facility] 1.2.865.690 [id number] Univers 00:00:00 00:00:00 [facility] 350.1.13.10 i ty of [place] [id number] [address] OFFICE BUILDING 2022-06-14 2022-06-14 Telephone Donna [facility] 1.2.457.816 [id number] Univers 00:00:00 00:00:00 [facility] 350.1.13.10 i ty of [place] 4[place]2.[place].2.[place] [id number] [address] OFFICE BUILDING 2022-06-08 2022-06-08 Telephone LAKESHIA Pham 1.2.039.593 [id number] Univers 00:00:00 00:00:00 Izabela BEARD 350.1.13.10 i ty of HOSPITAL 4.2.7.2.686 Neal as [phone] [facility] [address] 2022-06-08 2022-06-08 Transition ANASTASIIA Calderon 1.2.840.114 10 [id number] Univers 00:00:00 00:00:00 of Care Elyssasuma BENNETT 350.1.13.10 i ty of [place].2.7.2.686 [place] [id number] [facility] [address] 2022-05-26 2022-06-07 [facility] [id number] Univers 15:42:00 15:09:00 ALLAN [facility] 2022-05-26 2022-06-07 [facility] Meche Zapata 1.2.840.1 14 [id number] Univers 15:42:00 15:09:00 Encounter Luis Huerta 350.1.13.10 ity of [facility] 4.2.7.2.686 Lance Swift [id number] [facility] Allan Lynch [address] 2022-06-07 2022-06-07 Outpatient R [facility] [id number] Univers 13:00:00 13:00:00 [facility] 2022-06-03 2022-06-03 Surgery TYE Peterson 1.2.840.114 [id number] Univers 07:00:00 09:33:00 Lawrence BEARD 350.1.13.10 i ty of [facility] 4.2.7.2.686 Neal as [id number] [facility] [address] 2022-06-02 2022-06-02 Telephone [facility] 1.2.370.924 [id number] Univers 00:00:00 00:00:00 Izabela TORREZ 350.1.13.10 ity of [place].2.[place] [id number] Me dical NAL [address] [facility] 2022-06-01 2022-06-01 Telephone [facility] 1.2.840.114 [id number] Univers 00:00:00 00:00:00 [facility] 350.1.13.10 it y of Blaneziyad [facility] 4.2.7.2.686 Neal as JOEL?BLEA [id number] Mo edison LOAIZA 044 [facility] 2022-05-30 2022-05-30 Surgery TYE Lynch 1.2.840.114 [id number] Univers 20:00:00 22:46:00 Allan CHIRAG 350.1.13.10 it y of [facility] 4.2.7.2.686 Neal as [id number] [address] 2022-05-29 2022-05-29 Surgery TYE Lynch 1.2.840.114 [id number] Univers 07:20:00 10:33:00 Allan CHIRAG 350.1.13.10 it y of [facility] 4.2.7.2.686 Neal as [id number] [address] 2022-05-26 2022-05-26 Outpatient R [facility] [id number] Univers 09:45:00 09:45:00 ROBINA [facility] 2022-05-24 2022-05-24 Outpatient R [facility] [id number] Univers 00:00:00 00:00:00 WOO [facility] 2022-05-24 2022-05-24 Prep For [facility] 1.2.840.114 [id number] Univers 00:00:00 00:00:00 Surgery [facility] 350.1.13.10 ity of [place] [phone] Mo edison ARENAS 188 [facility] 2022-05-23 2022-05-23 Emergency [facility] ERT [id number] Univers 16:40:00 18:12:00 RODRIGO [facility] 2022-05-23 2022-05-23 Emergency X [facility] ERT [id number] Univers 16:40:00 18:12:00 FOLUSHO ity of [facility] 2022-05-23 2022-05-23 Emergency [facility] 1.2.840.114 [id number] Univers 16:40:00 18:12:00 Rodrigo TORREZ 350.1.13.10 ity of [place].2.[place] [id number] [address] 2022-05-23 2022-05-23 Emergency [facility] 1.2.237.879 [id number] Univers 03:49:00 06:12:00 Carlos [facility] 350.1.13.10 ity of [place] 4.2.7.2.686 [place] [id number] [place] [address] [place] 2022-05-23 2022-05-23 Telephone [facility] 1.2.840.114 [id number] Univers 00:00:00 00:00:00 [facility] 350.1.13.10 [facility] 4.2.7.2.686 Neal as JOEL?BLEA [id number] Mo dical KNEY [address] [place] MEDICAL OFFICE BUILDING 2022-05-19 2022-05-19 Outpatient R [facility] [id number] Univers 09:30:00 10:37:40 [facility]ABELA [facility]AM [facility] 2022-05-19 2022-05-19 Office [facility] 1.2.840.114 [id number] Univers 09:30:00 10:37:40 Visit Izabela TORREZ 350.1.13.10 ity of [place] 4.2.[place].2.[place] [id number] Mo dical NAL [address] BUILDING 2022-05-19 2022-05-19 Orders Doctor LAKESHIA 1.2.840.114 [id number] Univers 00:00:00 00:00:00 Only Unassigned, CHIRAG 350.1.13.10 ity of [place] [facility] 4.2.7.2.686 Neal as [id number] [facility] [address] [place] 2022-05-17 2022-05-17 Outpatient R ROGER [facility] [id number] Univers 08:00:00 08:57:35 WOO ity [facility] 2022-05-17 2022-05-17 Orders Doctor LAKESHIA 1.2.840.114 [id number] Univers 00:00:00 00:00:00 Only Unassigned, CHIRAG 350.1.13.10 ity of [place] [facility] 4.2.7.2.686 Neal as [id number] [address] 2022-05-16 2022-05-16 Orders Doctor LAKESHIA 1.2.840.114 [id number] Univers 00:00:00 00:00:00 Only Unassigned, CHIRAG 350.1.13.10 ity of [place] [facility] 4.2.7.2.686 Neal as [id number] [address] 2022-05-05 2022-05-05 Outpatient [facility] [id number] Univers 10:00:00 10:00:00 ROBINA [facility] 2022-05-05 2022-05-05 Telephone [facility] 1.2.840.114 [id number] Univers 00:00:00 00:00:00 [facility] 350.1.13.10 it y of [place] 4.2.7.2.686 Neal as JOEL?BLEA [id number] [address] MEDICAL OFFICE [facility] 2022-05-04 2022-05-04 Orders Doctor ASHER 1.2.840.114 [id number] Univers 00:00:00 00:00:00 Only Unassigned, CHIRAG 350.1.13.10 ity of [place] [facility] 4.2.7.2.686 Neal as [id number] [address] 2022-05-03 2022-05-03 Office [facility] 1.2.840.114 [id number] Univers 09:45:00 10:15:00 Visit [facility] 350.1.13.10 it y of [place] 4.2.7.2.686 Neal as JOEL?BLEA [id number] [address] MEDICAL OFFICE [facility] 2022-05-03 2022-05-03 Outpatient R JERRICA [facility] [id number] Univers 09:45:00 09:45:00 ROBINA ity of [facility] 2022-04-22 2022-04-22 Orders Doctor LAKESHIA [id number] [employer] 00:00:00 00:00:00 Only Unassigned, CHIRAG 350.1.13.10 ity of [facility] 4.2.7.2.686 Neal as [phone] [address] 2022-04-22 2022-04-22 Telephone [facility] [id number] Univers 00:00:00 00:00:00 Strahil T [place] 350.1.13.10 ity of [place] [id number] Mo dicdc NAL [address] [place] [address] 2022-04-13 2022-04-13 [facility] [id number] [facility] 09:30:00 10:00:00 Visit Strahil T [place] 350.1.13.10 it[place] [phone] Mo dic[address] 2022-04-13 2022-04-13 Outpatient R DAWSON CHOUDHURY [facility] [id number] Univers 09:30:00 09:30:00 MARYLIN CHOUDHURYL ity of [facility] 2022-04-13 2022-04-13 Orders Doctor LAKESHIA 1.2.840.114 [id number] [facility] 00:00:00 00:00:00 Only Unassigned, CHIRAG 350.1.13.10 ity of [place] [facility] 4.2.7.2.686 Neal as [phone] [address] 2022-04-13 2022-04-13 Telephone [facility] 1.2.840.114 10 [id number] Univers 00:00:00 00:00:00 Strahil T MULTISPEC 350.1.13.10 ity of [place] [phone] [facility] AND JONAH [address] [place] [facility] 2022-04-07 2022-04-07 Office [facility] 1.2.840.114 [id number] Univers 10:30:00 11:02:20 Visit [facility] 350.1.13.10 it y of José Miguel [place] 4.2.7.2.686 Neal as JOEL?BLEA [phone] Mo alpa[address] MEDICAL OFFICE [facility] 2022-04-07 2022-04-07 Outpatient R [facility] [id number] Univers 10:30:00 10:30:00 ROBINA ity [facility] 2022-04-06 2022-04-06 Telephone [facility] 1.2.840.114 [id number] Univers 00:00:00 00:00:00 [facility] 350.1.13.10 it [facility] 4.2.7.2.686 Neal as JOEL?BLEA [phone] [address] OFFICE [facility] 2022-04-02 2022-04-02 Dredge Master 1, [facility] Sleep Lab Bed [facility] 1. 2.840.114 [id number] Univers 20:00:00 22:30:00 Visit Dawson Choudhury 350.1.13. 10 ity [facility] 4.2.7.2.686 [facility] [phone] [facility] [address] 2022-04-02 2022-04-02 Outpatient R DAWSON CHOUDHURY [facility] [id number] Univers 20:00:00 20:00:00 DAWSON CHOUDHURY ity of [facility] 2022-04-02 2022-04-02 Orders Doctor ASHER 1.2.840.114 [id number] Univers 00:00:00 00:00:00 Only Unassigned, CHIRAG 350.1.13.10 ity of [place] [facility] 4.2.7.2.686 Neal as [phone] [facility] [address] 2022-03-24 2022-03-24 [facility] Susan Manjarrez [facility] 1.2.840.114 10 [id number] Univers 08:01:23 23:59:00 Encounter [place] 350.1.13.10 ity of [facility] 4.2.7.2.686 [facility] [phone] [address] 2022-03-24 2022-03-24 Outpatient R [facility] [id number] Univers 07:57:08 08:00:00 DELROY ity of [facility] 2022-03-24 2022-03-24 [facility] 1.2.840.114 [id number] Univers 07:57:08 08:00:00 Encounter Delroy TORREZ 350.1.13.10 ity of [facility] 4.2.7.2.686 [facility] [id number] [address] 2022-02-16 2022-02-16 Telephone [facility] 1.2.840.114 [id number] Univers 00:00:00 00:00:00 [facility] 350.1.13.10 it y of [place] 4.2.7.2.686 Neal as JOEL?BLEA [phone] [address] MEDICAL OFFICE BUILDING 2022-02-15 2022-02-15 Orders Doctor LAKESHIA 1.2.840.114 [id number] Univers 00:00:00 00:00:00 Only Unassigned, CHIRAG 350.1.13.10 ity of [place] [facility] 4.2.7.2.686 Neal as [phone] [address] 2022-02-03 2022-02-03 Orders Doctor LAKESHIA 1.2.840.114 [id number] Univers 00:00:00 00:00:00 Only Unassigned, CHIRAG 350.1.13.10 ity of [place] [facility] 4.2.7.2.686 Neal as [phone] [address] 2022-02-02 2022-02-02 Office [facility] 1.2.840.114 [id number] Univers 09:30:00 09:45:00 Visit [facility] 350.1.13.10 it y of [place] 4.2.7.2.686 Neal as JOEL?BLEA [phone] Mo edison LOAIZA [address] [place] [address] MEDICAL OFFICE [facility] 2022-02-02 2022-02-02 Outpatient R JERRICA [facility] [id number] Univers 09:30:00 09:40:22 ROBINA ity [facility] 2022-01-17 2022-01-17 Orders Doctor ASHER 1.2.840.114 [id number] Univers 00:00:00 00:00:00 Only Unassigned, CHIRAG 350.1.13.[address] [facility] 4.2.7.2.686 Neal as [phone] [address] 2022-01-03 2022-01-03 Office [facility] 1.2.840.114 [id number] Univers 09:15:00 09:30:00 Visit [facility] 350.1.13.10 it y of [place]ane[place] 4.2.7.2.686 Neal as JOEL?BLEA [phone] Mo edison [address] MEDICAL OFFICE [facility] 2022-01-03 2022-01-03 Outpatient R JERRICA [facility] [id number] Univers 09:15:00 09:15:00 ROBINA [facility] 2021-12-08 2021-12-08 Office Macey [facility] 1.2.348.853 [id number] Univers 10:20:00 10:40:00 Visit Dawson TORREZ 350.1.13.10 ity [facility] 4.2.7.2.686 [place] [phone] Mo edison [facility] 085 [facility] 2021-12-08 2021-12-08 Outpatient R DAWSON CHOUDHURY [facility] [id number] Univers 10:20:00 10:20:00 DAWSON CHOUDHURY ity [facility] 2021-12-08 2021-12-08 Outpatient R DAWSON CHOUDHURY [facility] [id number] Univers 10:20:00 10:20:00 MARYLIN CHOUDHURYL ity [facility] 2021-12-08 2021-12-08 Orders Doctor ASHER 1.2.840.114 [id number] Univers 00:00:00 00:00:00 Only Unassigned, CHIRAG 350.1.13.10 ity of [place] [facility] 4.2.7.2.686 Neal as [phone] [facility] [address] 2021-12-02 2021-12-02 Office Jerrica [facility] 1.2.840.114 [id number] Univers 11:00:00 11:15:00 Visit [facility] 350.1.13.10 it y of José [place] 4.2.7.2.686 Neal as JOEL?BLEA [phone] [address] MEDICAL OFFICE BUILDING 2021-12-02 2021-12-02 Outpatient R JERRICA [facility] [id number] Univers 11:00:00 11:00:00 ROBINA kirit [facility] 2021-11-25 2021-11-25 Outpatient R DAWSON CHOUDHURY [facility] [id number] Univers 20:00:00 20:00:00 DAWSON CHOUDHURY [facility] 2021-11-22 2021-11-22 Outpatient R DAWSON CHOUDHURY [facility] [id number] Univers 10:15:00 10:15:00 DAWSON CHOUDHURY [facility] 2021-11-04 2021-11-04 Dredge Master [facility] 1.2 .840.114 [id number] Univers 10:00:00 10:15:00 Visit Dawson Choudhury 350.1.13. 10 ity [facility] 4.2.7.2.686 [place] [facility] [phone] [facility] [address] 2021-11-04 2021-11-04 Outpatient R DAWSON CHOUDHURY [facility] [id number] Univers 10:00:00 10:00:00 DAWSON CHOUDHURY [facility] 2021-11-04 2021-11-04 Orders Doctor ASHER 1.2.840.114 [id number] Univers 00:00:00 00:00:00 Only Unassigned, CHIRAG 350.1.13.10 ity of [place] [facility] 4.2.7.2.686 Neal as [phone] [place] [address] [address] 2021-11-02 2021-11-02 Outpatient [facility] [id number] Univers 09:30:00 10:02:11 ROBINA [facility] 2021-11-02 2021-11-02 Office [facility] 1.2.840.114 [id number] Univers 09:30:00 09:45:00 Visit [facility] 350.1.13.10 it y of [place] 4.2.7.2.686 Neal as JOEL?BLEA [phone] [address] MEDICAL OFFICE BUILDING 2021-11-02 2021-11-02 [facility] 1.2.840.114 [id number] Univers 00:00:00 00:00:00 Strahil T MULTISPEC 350.1.13.10 ity of [place] [phone] [facility] AND JONAH [address] [facility] 2021-10-07 2021-10-07 Telephone [facility] 1.2.840.114 [id number] Univers 00:00:00 00:00:00 [facility] 350.1.13.10 it y of [place] 4.2.7.2.686 Neal as JOEL?BLEA [phone] [address] MEDICAL OFFICE [facility] 2021-10-05 2021-10-05 Outpatient R [facility] [id number] Univers 14:15:00 14:43:53 ROBINA [facility] 2021-10-05 2021-10-05 Office [facility] 1.2.840.114 [id number] Univers 14:15:00 14:30:00 Visit [facility] 350.1.13.10 it y of [place] 4.2.7.2.686 Neal as JOEL?BLEA [phone] [address] MEDICAL OFFICE BUILDING 2021-10-05 2021-10-05 Outpatient R [facility] [id number] Univers 14:15:00 14:15:00 ROBINA [facility] 2021-09-22 2021-09-22 Office [facility] 1.2.741.169 [id number] Univers 13:40:00 14:00:00 Visit Dawson Jeronimo SHAN 350.1.13.10 ity [facility] 4.2.7.2.686 [place] julissa MARIOIO [phone] Mo alpaletty DEEPA [address] [place] BUILDING 2021-09-22 2021-09-22 Out[facility] [id number] Univers 13:40:00 13:40:00 [facility] 2021-09-22 2021-09-22 Outpatient [facility] [id number] Univers 13:40:00 13:40:00 [facility] 2021-09-21 2021-09-21 Letter LAKESHIA Morales 1.2.840.114 [id number] Univers 00:00:00 00:00:00 (Out) Erma Decker CHIRAG 350.1.13.10 it y of [facility] 4.2.7.2.686 Neal as [phone] [address] 2021-09-20 2021-09-20 Outpatient R JOEL [facility] [id number] Univers 15:00:00 15:33:41 MAGDALENE hooks o [facility] 2021-09-20 2021-09-20 [facility] 1.2.840. 114 [id number] Univers 15:00:00 15:33:41 Care [facility] 350.1.13.10 ity [facility] 4.2.7.2.686 Neal as JOEL?BLEA [phone] [facility] [address] [place] MEDICAL OFFICE BUILDING 2021-09-20 2021-09-20 Outpatient R JOEL [facility] [id number] Univers 15:00:00 15:33:41 MAGDALENE hooks o f [facility] 2021-09-15 2021-09-15 Outpatient R JERRICA [facility] [id number] Univers 11:15:00 11:37:11 ROBINA kirit [facility] 2021-09-15 2021-09-15 Office [facility] 1.2.840.114 [id number] Univers 11:15:00 11:30:00 Visit [facility] 350.1.13.10 it y of José Miguel TORREZ 4.2.7.2.686 Neal as JOEL?BLEA [phone] [address] MEDICAL OFFICE [facility] 2021-09-15 2021-09-15 Outpatient R [facility] [id number] Univers 11:15:00 11:15:00 ROBINA [facility] 2021-06-30 2021-06-30 Orders Doctor LAKESHIA 1.2.840.114 [id number] Univers 00:00:00 00:00:00 Only Unassigned, CHIRAG 350.1.13.10 ity of [place] [facility] 4.2.7.2.686 Neal as [phone] [facility] [address] [place] 2021-05-24 2021-05-24 Telephone [facility] 1.2.840.114 [id number] Univers 00:00:00 00:00:00 [facility] 350.1.13.10 it y of José Miguel [facility] 4.2.7.2.686 Neal as JOEL?BLEA [phone] [address] MEDICAL OFFICE [facility] 2021-05-11 2021-05-11 Outpatient R [facility] [id number] Univers 11:45:00 11:45:00 ROBINA [facility] 2021-03-31 2021-04-02 Emergency X SYD [facility] ERT [id number] Univers 09:05:00 07:46:00 CARLOS kirit [facility] 2021-03-31 2021-04-02 Emergency Ladonna Bryant [facility] 1.2.8 40.114 [id number] Univers 09:05:00 07:46:00 Carlos Corbin S [place] 350.1.13.10 ity of [place] 4.2.7.2.686 [place] [phone] [facility] [address] [place] 2020-12-21 2020-12-21 Emergency X [facility] [id number] Univers 12:12:00 16:04:00 MICHAEL hooks [facility] 2020-12-21 2020-12-21 Emergency [facility] 1.2.149.694 [id number] Univers 12:12:00 16:04:00 Michael [facility] 350.1.13.10 i ty of ANUJIZABELA 4.2.7.2.686 [facility] [phone] [address] 2020-12-10 2020-12-10 Outpatient Zeke [facility] [id number] Univers 09:00:00 09:00:00 ROBINA hooks [facility] 2020-12-08 2020-12-08 Emergency [facility] 1.2.062.264 [id number] Univers 05:45:00 08:15:00 Carlos Torrez 350.1.13.10 ity of [place] 4.2.7.2.686 [facility] [phone] [address] 2020-12-08 2020-12-08 Emergency X [facility] ERT [id number] Univers 05:45:00 08:15:00 RENETTAKATHARINA gradykirit [facility] 2020-11-10 2020-11-10 Outpatient [facility] [id number] Univers 13:10:00 13:10:00 ysabelkirit [facility] 2020-11-10 2020-11-10 Outpatient Zeke BECERRIL [facility] [id number] Univers 09:30:00 10:05:31 ROBINA gradykirit [facility] 2020-11-10 2020-11-10 [facility] 1.2.840.114 [id number] Univers 09:22:11 09:52:11 Visit [facility] 350.1.13.10 it y of José [place] Torrez 4.2.7.2.686 Neal as Joel?Blea [phone] Mo alpa[address] Medical Office Building 2020-09-19 2020-09-19 [facility] [phone] [place] 03:24:00 03:24:00 E__ [id number] Medica l Group 2020-09-04 2020-09-04 Orders Doctor LAKESHIA 1.2.840.114 [id number] Univers 00:00:00 00:00:00 Only Unassigned, CHIRAG 350.1.13.10 ity of [place] [facility] 4.2.7.2.686 Nela as [phone] [facility] [address] 2020-08-22 2020-08-22 [facility] 456 [place] 05:19:00 05:19:00 E__ 72523 Medica l Group 2020-08-17 2020-08-17 Outpatient Zeke [facility] [id number] Univers 09:00:00 09:00:00 WONDIFUL ity o f [facility] 2020-08-06 2020-08-07 [facility] Edgard Leo 1.2.840.1 14 [id number] Univers 13:41:00 23:00:00 Encounter Magali Curtis 350.1.13.10 ity of [facility] 4.2.7.2.686 Neal as [phone] [facility] [address] 2020-08-03 2020-08-05 Emergency Ted Lion 1.2.840. 114 [id number] Univers 08:54:00 16:11:00 Allen Maravilla 350.1.13.10 ity of [facility] 4.2.7.2 .686 [place] [phone] [facility] [address] 2020-07-31 2020-07-31 Emergency [facility] 1.2.840.114 [id number] Univers 08:39:00 14:39:00 Ladonna Torrez 350.1.13.10 ity of [place] 4.2.7.2.686 [facility] [phone] [facility] [address] 2020-07-25 2020-07-25 Outpatient [facility] [id number] 997 [place] 06:29:00 06:29:00 E__ [id number] Medica l Group 2020-07-242020-07-24 Outpatient YVON_URSULA [facility] [phone] [place] 11:00:00 11:00:00 Giselle__ [address]156 Medica l Group 2020-06-08 2020-06-08 Emergency [facility] 1.2.470.232 [id number] 6577 [facility] 13:48:00 17:01:00 Ted Torrez 350.1.13.10 i ty of [place] 4.2.7.2.686 [place] [phone] [facility] [address] [place] 2020-01-28 2020-01-28 Outpatient JAM, [facility] [id number] [address] [place] [address] 00:00:00 00:00:00 [facility] 2020-01-20 2020-01-20 Outpatient MOUNIKA, [facility] [id number] [place] 11:36:00 16:26:30 [facility] 2019-10-29 2019-10-31 Inpatient [place] [id number] [address] [place] [address] 00:00:00 00:00:00 YASMINE [address] [facility] 2019-03-12 2019-03-12 [facility] 1.2.840.114 [id number] Univers 14:43:00 23:59:00 Encounter [facility] 350.1.13.10 ity [place].2.686 [place] [phone] [facility] [address] 2019-03-11 2019-03-12 [facility]DCJ 1.2.840.114 [id number] Univers 15:17:00 17:21:00 Encounter [facility] 350.1.13.10 ity of [place]7.2.686 [place] [phone] [facility] [address] 2019-03-11 2019-03-12 Office Surgery, Tdc General [facility] 1.2.8 40.114 [id number] Univers 09:09:17 08:54:29 Visit [facility] 350.1.13.10 ity of Sergio [facility] 4.2.7.2.686 [place] [phone] [facility] [address] 2018-10-31 2018-10-31 Office Surgery, Tdc Vascular [facility]DCJ 1.2. 840.114 [id number] [facility] 08:41:29 09:11:29 Visit RanierRamana [facility] 350.1.13.10 ity of 4.2.7.2.686 Akbar costa [phone] [place] [address] [address] 2014-07-22 2014-07-22 [facility] [id number] Memoria 17:51:00 21:57:00 Emergency r Titi 00 l [facility] 2014-07-22 2014-07-22 [facility] [id number] Memoria 17:51:00 21:57:00 Emergency r Irwin 00 l [facility] 2014-07-22 2014-07-22 Outpatient Griffin, 2.16.840. 2.16.840.1 . [id number] 12:51:00 16:57:00 Christy 1.561033. 819715.3.61 00 Radhika 3.615.0.1 5.0.101 01 Results Test Description Test Time Test Comments Results Result [facility] e Comments RAD, CHEST, 1 2022-06-15 Post-intubationReason VIEW, NON DEPT 0 for 13:01:00 exam:->encephalopathy , r/o [facility] - aspirationShould this [facility] be performed at the [facility] KAYE [...] (BEAKER) (test 3.000 <0.400 H code = 0699) 4T TOTAL SCORE (BEAKER) (test code 3 = 2661) BASIC METABOLIC [id number] 09:21:22 Test Item Value Reference Range Interpretation [...] not appl icable for dialysis patien ts Telephone Answering Service Operator ID - [id number] 07:01:03 Test Item Value Reference Range Interpretation Comments PHOSPHORUS (BEAKER) (test code = 3.1 mg/dL 2.3-4.7 604) Telephone Answering Service Operator ID - PABLITO WHEPATIC FUNCTION [id number] 07:01:02 Test Item Value Reference Range Interpretation [...] (test code = 21 U/L 6-55 347) Telephone Answering Service Operator ID Marquis KENNEY [id number] 07:01:02 Test Item Value Reference Range Interpretation Comments MAGNESIUM (BEAKER) (test code = 2.5 mg/dL 1.6-2.6 627) Telephone Answering Service Operator SHAKIRA KENNEY WB-TYPE NATRIURETIC FACTOR (BNP)2022-07-12 06:45:03 Test Item Value Reference Range Interpretation Comments B-TYPE NATRIURETIC PEPTIDE (BEAKER) 33 pg/mL 0-100 (test code = 700) Telephone Answering Service Operator SHAKIRA KENNEY [id number] 06:38:12 Test Item Value Reference Range Interpretation [...] of thrombosis is within 95-100% range. PROTHROMBIN TIME/[id number] 06:28:19 Test Item Value Reference Range Interpretation Comments PROTIME (BEAKER) (test code = 13.9 seconds 11.9-14.2 759) INR (BEAKER) (test code = 370) 1.09 <=5.90 RECOMMENDED COUMADIN/WARFARIN INR THERAPY RANGESSTANDARD DOSE: 2.0 - 3.0 Includes: PROPHYLAXIS for venous thrombosis, systemic embolization; TREATMENT for venous thrombosis and/or pulmonary embolus.HIGH RISK: Target INR is 2.5-3.5 for patients with mechanical heart valves.POCT-GLUCOSE [id number] 06:10:03 Test Item Value Reference Range Interpretation Comments POC-GLUCOSE METER 97 mg/dL 70-110 : TESTED A T [facility] 6720 (ALMAAKER) (test code = MELINDAIVELISSE ENG [place], 1538) 57977: Telephone Answering Service Operator/Techni santosh ID = [id number] for Jackie Sousa COMP. METABOLIC PANEL ([id number])2022-07-11 11:58:27 Test Item Value Reference Range Interpretation Comments NA (test code = 138 mmol/L 135-145 3186577101) K (test code = 4.5 mmol/L 3.5-5.0 Slight hemoly sis 6833126662) CL (test code = 101 mmol/L 98-108 4494532595) CO2 TOTAL (test 23 mmol/L 23-31 code = 7776074701) AGAP (test code = 14 2-16 9379114498) BUN (test code = 14 mg/dL 7-23 Slight hemo lysis 7659620234) GLUCOSE (test code 94 mg/dL 70-110 = 6673026236) CREATININE (test 0.67 mg/dL 0.60-1.25 code = 6560542787) TOTAL BILI (test 0.6 mg/dL 0.1-1.1 code = 2418236102) CALCIUM (test code 9.0 mg/dL 8.6-10.6 = 5337618671) T PROTEIN (test 7.2 g/dL 6.3-8.2 code = 4515413638) ALBUMIN (test code 4.5 g/dL 3.5-5.0 = 4940816473) ALK PHOS (test 88 U/L 34-122 Slight hemoly sis code = 7527855209) ALTv (test code = 31 U/L 5-50 1742-6) AST(SGOT) (test 40 U/L 13-40 Slight hemol ysis code = 5441504331) eGFR (test code = 121.4 mL/min/1.73m2 2356061730) DEWAYNE (test code = Association of DEWAYNE) [...] or urine or abnormalities in imaging tests). [facility] WITH [id number] 11:18:00 Test Item Value Reference Range Interpretation Comments WBC (test code = 7.15 See_Comment [Automated 8443-2) message] The sy stem which generated this result transmitted reference range : 4.20 - 10.70 10*3/?L. The reference range was not used to interpret this result as normal/abnormal . RBC (test code = 3.45 See_Comment L [Automated 745-5) message] The sy stem which generated this [...] (test code = 53.9 fL 38.5-51.6 H 13042-3) RDW-CV (test code = 17.2 % 12.1-15.4 H 788-0) PLT (test code = 400 See_Comment H [Automated 777-3) message] The sy stem which generated this result transmitted reference range : 150 - 328 10*3/ ?L. The reference r mitra was not used to interpret this result as normal/abnormal . MPV (test code = 8.8 fL 9.8-13.0 L 10375-2) NRBC/100 WBC (test 0.0 See_Comment [Automat ed code = 8444026358) message] The system which generated this result transmitted reference range : 0.0 - 10.0 /100 WBCs. The refer ence range was not u sed to interpret th is result as normal/abnormal . NRBC x10^3 (test code See_Comment [Auto mated = 5485662382) message] The s ystem which generated this result transmitted reference range : 10*3/?L. The reference range was not used to interpret this result as normal/abnormal . GRAN MAT (NEUT) % 71.5 % (test code = 770-8) IMM GRAN % (test code 0.40 % = 4129263433) LYMPH % (test code = 17.6 % 736-9) MONO % (test code = 7.4 % 5905-5) EOS % (test code = 1.8 % 713-8) BASO % (test code = 1.3 % 706-2) GRAN MAT x10^3(ANC) 5.11 10*3/uL 1.99-6.95 (test code = 9185696626) IMM GRAN x10^3 (test 0.03 10*3/uL 0.00-0.06 code = 0703996119) LYMPH x10^3 (test code 1.26 10*3/uL 1.09-3.23 = 731-0) MONO x10^3 (test code 0.53 10*3/uL 0.36-1.02 = 742-7) EOS x10^3 (test code = 0.13 10*3/uL 0.06-0.53 711-2) BASO x10^3 (test code 0.09 10*3/uL 0.01-0.09 = 704-7) Lab Interpretation Abnormal (test code = 67966-2) [facility]2022-07-11 09:27:00 Test Item Value Reference Range Interpretation Comments POCT GLU (test code = 0341833075) 95 mg/dL 70-110 Lab Interpretation (test code = Normal 84652-3) [facility]. METABOLIC PANEL (30398)2022-07-05 13:14:57 Test Item Value Reference Range Interpretation Comments NA (test code = 137 mmol/L 135-145 7685412300) K (test code = 4.2 mmol/L 3.5-5.0 3208230000) CL (test code = 100 mmol/L 98-108 7145205481) CO2 TOTAL (test code = 24 mmol/L 23-31 9547432454) AGAP (test code = 13 2-16 1421762919) BUN (test code = 11 mg/dL 7-23 1051228664) GLUCOSE (test code = 124 mg/dL 70-110 H 8503509827) CREATININE (test code = 0.81 mg/dL 0.60-1.25 8677568637) TOTAL BILI (test code = 0.6 mg/dL 0.1-1.0 3686080064) CALCIUM (test code = 9.1 mg/dL 8.6-10.6 6295282951) T PROTEIN (test code = 7.0 g/dL 6.3-8.2 6364853614) ALBUMIN (test code = 4.3 g/dL 3.5-5.0 6123692079) ALK PHOS (test code = 103 U/L 34-122 5455928582) ALTv (test code = 28 U/L 5-50 1742-6) AST(SGOT) (test code = 39 U/L 13-40 8553823691) eGFR (test code = 97.5 mL/min/1.73m2 0800384980) DEWAYNE (test code = DEWAYNE) Association of [...] tests). Lab Interpretation Abnormal (test code = 89953-5) [facility] [id number] 12:25:35 Test Item Value Reference Range Interpretation Comments NT-proBNP (test code = 523 pg/mL <=125 H [id number]) DEWAYNE (test code = DEWAYNE) Biotin has been reported to cause a negative bias, interpret results relative to patient's use of biotin. Lab Interpretation (test Abnormal code = 63955-6) [facility] [id number] 12:25:35 Test Item Value Reference Range Interpretation Comments TROPONIN I (test code = 0.009 ng/mL <=0.034 [id number]) DEWAYNE (test code = DEWAYNE) Reference (Normal) [...] biotin. Lab Interpretation Normal (test code = 39216-0) [facility] WITH [id number] 12:01:31 Test Item Value Reference Range Interpretation [...] (test code = 52.8 fL 38.5-51.6 H 66901-1) RDW-CV (test code = 16.1 % 12.1-15.4 H 788-0) PLT (test code = 436 See_Comment H [Automated 777-3) message] The sy stem which generated this result transmitted reference range : 150 - 328 10*3/ ?L. The reference r mitra was not used to interpret this result as normal/abnormal . MPV (test code = 8.9 fL 9.8-13.0 L 49099-0) NRBC/100 WBC (test 0.3 See_Comment [Automat ed code = [id number]) message] The system which generated this result transmitted reference range : 0.0 - 10.0 /100 WBCs. The refer ence range was not u sed to interpret th is result as normal/abnormal . NRBC x10^3 (test code 0.02 See_Comment [Auto mated = 2956871106) message] The s ystem which generated this result transmitted reference range : 10*3/?L. The reference range was not used to interpret this result as normal/abnormal . GRAN MAT (NEUT) % 69.0 % (test code = 770-8) IMM GRAN % (test code 0.40 % = 0790894924) LYMPH % (test code = 16.1 % 736-9) MONO % (test code = 12.7 % 5905-5) EOS % (test code = 0.8 % 713-8) BASO % (test code = 1.0 % 706-2) GRAN MAT x10^3(ANC) 4.89 10*3/uL 1.99-6.95 (test code = 5820167645) IMM GRAN x10^3 (test 0.03 10*3/uL 0.00-0.06 code = 6900890063) LYMPH x10^3 (test code 1.14 10*3/uL 1.09-3.23 = 731-0) MONO x10^3 (test code 0.90 10*3/uL 0.36-1.02 = 742-7) EOS x10^3 (test code = 0.06 10*3/uL 0.06-0.53 711-2) BASO x10^3 (test code 0.07 10*3/uL 0.01-0.09 = 704-7) Lab Interpretation Abnormal (test code = 39669-6) [facility]ERS[facility]LEY[facility] RELEASE [id number] 14:13:16 Test Item Value Reference Range Interpretation Comments SCAN RESULT (test code = 0898689) UFH LOW DOSE 0.1 (2) See sca nned report. (BEAKER) (test code = 2593) See scanned reportU/S, RENAL, [id number] 17:23:00Reason for exam:->hydronephrosis [facility] 1960 Sex: MFINAL [...] 06/23/2022 17:23:41 CBC W/PLT COUNT & AUTO [id number] 05:58:22 Test Item Value Reference Range Interpretation [...] (BEAKER) (test code = 2801) U/S, ABDOMINAL, [id number] 16:48:00Abdomen limited area? Add comment if clarification is needed.->Right upper quadrantReason for exam:->elevated Tbili - please evaluate [facility] : 1960 Sex: MFINAL [...] right upper quadrant ultrasound. Signed: Jm Baeza [facility] Verified Date/Time: 6:48:01 SERUM [id number] 16:04:04 Test Item Value Reference Range Interpretation Comments IMMUNOGLOBULIN A (IGA) 146 mg/dL 63-484 (Sadra MedicalAKER) (test code = 639) IMMUNOGLOBULIN G (IGG) 704 mg/dL 540-1822 (Sadra MedicalAKER) (test code = 427) IMMUNOGLOBULIN M (IGM) 72 mg/dL 22-293 (Sadra MedicalAKER) (test code = 638) SERUM IT ID [id number]([employer]) No monoclonal (test code = 7627) protein detected. [facility]-PATHOLOGIST-"[id number] Axel Lawler, " (BEAKER) (test code = M.D. 4068) Clinical [place] - SFOperator ID - ADMINPROTEIN ELECTROPHORESIS, SERUM WITH REFLEX TO [id number] 16:03:41 Test Item Value Reference Range Interpretation [...] (test code = increased. 2615) Non-specific change. [id number] Axel Lawler, (BEAKER) (test code = M.D. 2616) PROTEIN TOTAL SERUM, 6.6 gm/dL 6.0-8.3 SPEP (BEAKER) (test code = 7720) Clinical [place] - SFOperator ID - ADMINOperator ID - ADMHEPARIN ANTIBODY 2022-06-22 12:12:51 Test Item Value Reference Range Interpretation Comments HEPARIN ANTIBODY Positive-See Serotonin Negative A (BEAKER) (test code = Release Assay for 646) Confirmation HEPARIN ANTIBODY OD 3.000 <0.400 H (BEAKER) (test code = 2659) 4T TOTAL SCORE 5 (BEAKER) (test code = 2661) [id number] 05:50:16 Test Item Value Reference Range Interpretation Comments HAPTOGLOBIN (BEAKER) (test code = 308 mg/dL 14-258 H 366) Telephone Answering Service Operator ID - ADMINOperator ID - ADMINVITAMIN [id number] 05:20:33 Test Item Value Reference Range Interpretation Comments VITAMIN B12 (BEAKER) (test code = 359 pg/mL 213-816 774) Telephone Answering Service Operator ID - [id number] 05:20:33 Test Item Value Reference Range Interpretation Comments FERRITIN (BEAKER) (test code = 415.83 ng/mL 5.00-275.00 H 361) Telephone Answering Service Operator ID - DOMINIQUE, TIBC, % SAT. (WITHOUT FERRITIN)2022-06-22 04:59:45 Test Item Value Reference Range Interpretation Comments IRON (BEAKER) (test code = 547) 38.0 ug/dL 40.0-160.0 L TOTAL IRON BINDING CAPACITY 311 ug/dL 250-450 (BEAKER) (test code = 769) IRON % SATURATION (2) (BEAKER) 12 % 20-55 L (test code = 2590) Telephone Answering Service Operator ID - MARCORETICULOCYTE [id number] 04:53:40 Test Item Value Reference Range Interpretation Comments RETICULOCYTE COUNT PCT (BEAKER) (test 5.7 % 0.5-1.8 H code = 575) Telephone Answering Service Operator ID - [id number] W/PLT COUNT & AUTO [id number] 04:53:36 Test Item Value Reference Range Interpretation [...] (BEAKER) (test code = 2801) HEPATIC FUNCTION [id number] 04:48:30 Test Item Value Reference Range Interpretation [...] (test code = 19 U/L 6-55 347) Telephone Answering Service Operator ID - ADMINLACTATE DEHYDROGENASE (LDH)2022-06-22 04:48:30 Test Item Value Reference Range Interpretation Comments LACTATE DEHYDROGENASE (BEAKER) (test 271 U/L 125-220 H code = 635) Telephone Answering Service Operator ID - ADMINBASIC METABOLIC [id number] 04:48:29 Test Item Value Reference Range Interpretation [...] glom erular filtration rate . Estimated GFR i s not applicable for dialysis patients Telephone Answering Service Operator ID - [id number] 04:48:29 Test Item Value Reference Range Interpretation Comments MAGNESIUM (BEAKER) (test code = 2.2 mg/dL 1.6-2.6 627) Telephone Answering Service Operator ID - ADMINCOMPREHENSIVE METABOLIC [id number] 13:27:13 Test Item Value Reference Range Interpretation [...] not appl icable for dialysis patien ts Telephone Answering Service Operator ID - JSCBC W/PLT COUNT & AUTO [id number] 13:14:04 Test Item Value Reference Range Interpretation [...] PERCENT (BEAKER) (test code = 2801) PROTHROMBIN TIME/[id number] 13:13:03 Test Item Value Reference Range Interpretation Comments PROTIME (BEAKER) (test code = 15.2 seconds 11.9-14.2 H 759) INR (BEAKER) (test code = 370) 1.28 <=5.90 RECOMMENDED COUMADIN/WARFARIN INR THERAPY RANGESSTANDARD DOSE: 2.0 - 3.0 Includes: PROPHYLAXIS for venous thrombosis, systemic embolization; TREATMENT for venous thrombosis and/or pulmonary embolus.HIGH RISK: Target INR is 2.5-3.5 for patients with mechanical heart valves.SARS-CoV2/RT-PCR ([facility]) 2022-06-21 13:03:14 Test Item Value Reference Interpretation Comments Range SARS-COV2/RT-PCR Negative Negative The SARS-Co V-2 (test code = target nucleic 94206-8) acids are not detected in thi s [...] revoked sooner. Fact Sheet for Healthcare Providers: https://www.[employer]/Documents/Xp ert%20Xpress%20SAR S%20CoV-2/Fact%20S heets/302-3802%20S ARS-COV-2%20HEALTH CARE%20PROVIDERS%2 0FACT%20SHEET.pdf Fact Sheet for Healthcare Patients: https://www.[employer]/Documents/Xp ert%20Xpress%20SAR S%20CoV-2/Fact%20S heets/302-3801%20S ARS-COV-2%20PATIEN T%20FACT%20SHEET.p df Lab Interpretation Normal (test code = 51397-9) [facility]2022-06-21 13:03:14 Test Item Value Reference Interpretation Comments Range SARS-COV2/RT-PCR Negative Negative The SARS-Co V-2 (test code = target nucleic 23125-6) acids are not detected in thi s [...] (test code = This test has been DEWAYEN) authorized by FDA under an EUA for [...] revoked sooner. Fact Sheet for Healthcare Providers: https://www.[employer]/Documents/Xp ert%20Xpress%20SAR S%20CoV-2/Fact%20S heets/302-3802%20S ARS-COV-2%20HEALTH CARE%20PROVIDERS%2 0FACT%20SHEET.pdf Fact Sheet for Healthcare Patients: https://www.[employer] [facility]/Documents/Xp ert%20Xpress%20SAR S%20CoV-2/Fact%20S heets/302-3801%20S ARS-COV-2%20PATIEN T%20FACT%20SHEET.p df Lab Interpretation Normal (test code = 52501-9) [facility]2022-06-21 13:03:14 Test Item Value Reference Range Interpretation Comments SARS-COV2/RT-PCR Negative Negative The SARS-Co V-2 target (test code = nucleic acids a re not 4968836) detected in thi s specimen. Negative result [...] individuals suspected of CO VID-19 by their [facility] provider. This test has been authorized [...] revoked sooner. Fact Sheet for Healthcare Providers: https://www.[employer]/Documents/Xpert%20Xpress%20SARS%20CoV-2/Fact%20Sheets/3023802%35YIMZ-EYJ-7%20 HEALTHCARE%20PROVIDERS%20FACT%20SHEET.pdf Fact Sheet for Healthcare Patients: https://www.[employer]/Documents/Xpert%20Xp ress%20SARS%20CoV-2/Fact%20Sheets/3023801%34FRPQ-PCD-5%20PATIENT%20FACT%20SHEET .pdfSURGICAL PATHOLOGY [id number] 19:37:37 Test Item Value Reference Range Interpretation Comments Case Report (test code Surgical Pathology ? ? = [id number]) ?Case: [id number] ? Authorizing Provider: ?Peterson, Lawrence, MD ?Collected: ? 06/03/2022 1042 ?Ordering Location: ? ? [facility] OR ? Received: ?06/03/2022 1154 ? Department ? Pathologist: ? Tatyana Monroe, ? MD PhD ? Specimen: ? ?OTHER, IVC FOREIGN BODY ? Final Diagnosis (test t6ybhSUcVNUjg4irIBDkmG code = 2965024105) FuZzEwMzNcZnRuYmpcdWMx IHtccnRmMVxlcGljMTAyMD UwNH5kcWttjTp1bSzaRJVf tpU1iHEhDYqwy9jsQEO8a4 hviwtgYVGjSRsjZq3nkADp hSisVqOlNZMcRBy3aJ84GR YfqF3xyKUrCMq5AYSyzOFg ezEeOgPkGSPxvGSyvII5FW SuFE4xcfhvCSjlMFwvCCEf zfG6HMSfmMKeP1IvSDIyOU 9ceykvJGO8QFlkQTZeHGZ0 WbLiVQDmd4Babam0BoSfiJ FyZFxwbGFpblxmczIwXHBh ciBBLiBIRUFSVCwgUkVNT1 ZBTCBPRiBJTkZFUklPUiBW BJ2WUPFGCyWxHt4PXVqHRr EZN7ETOeOkyKItNRFqJGTj OA1SWPLFNDkEMT6YMXfFTY eiPDKMCPOKQNYLHcEPJ8LZ RjDvK2mGLIYSLuJFCwfKBo JEOU6XCTRQUtClBcoIVBDV ABjgWCKvAAGaNCUrV2Zjn3 PfSCflzAwiWFUgg32df21r wTudg6CxZRvrp0IsULTem3 BtxXV3mL1yWC9vFQLqleZg RLJdGHDAGRMeX21QMKUFRV 5uhFEmaFcsqsZlLJtia3Up Y7PiJhSxGGlqqqAvBZDrCr vxncedNENtPHY2dhOhLHXt UVzqTTHlSHedAf9vcWPslZ ykIhDuUHRca5ldseVQJHyq KvKdK187VRShHUjbq3fpk6 EqDXGzwVMrx8W0XBWGnbfd oYk4e1ccOfKeAxU2dPUuPF vrZ0gvdhMtkMYkI8WtzCKw dEb0pBzxU56ca4K9LyyuI3 usEXWcAGXfE6GiNT3oOQPq Jim6AQK0ZOD9RGRuPWRnD5 MoGZ6sJNBrjKRjFQi7w2ff pIjyFTKkQWC8y1esTYuwis Y9KA1hmg1acCu5z7cgznGp FBZyLFFbjQIEENDgG0NxbJ wkPf6sbZx7wIijLoilCFY3 Hcs7FY3lup05zmr4aNyeDN FjcgwjSoR3QYedPFVwtezn NTd6DGucHMOyyII3DGBloL TpI8ZnRVRsHF4wtwh6NDK3 ZLehFVVsBaP1GGWjdPMyJH NmdLfcFAdzk214BGI6YcSa OY1dF8Zdb7G6uS3bxQVyPO QtoPOiErStDDLwsw2voXTn JLaqy9AbRLG5tfC6iTAjlU SoRIYlJQ06Kyptk5FdIlbq ASW6QMHhkyUvo1Fpt1uhWx CnelZmH2yiV6LcXDNvXBXj DJXqNwWtlkHca8Nmu2OebJ JpbOb3g8nhGKJuDWUecVwt w6faEGG8WJUpC5Z7vYBzb3 zdZGxqLTQfhEX9eaF0CAFh pDEpB9OpjZ8mZMHjIJ7jao u8o9qxJKH1QPepHINsTgW7 lgL4NJHecAPzGUGayPfnSB rko714WJX2TaXbTEOcy9Jr J0UmdVpzC79qzKprF51yNY RrhQtyhK4ihRfjvN9lIhHm ZnMyNFxxbFxwbGFpblxmMV xmczIwXGxhbmcxMDMzXGhp Y6edSgJwLMQdzBbwSTprd9 NoXGYxXGNmMlxmczIwXHBh ytFBHPmdchAjtHJor88tQA xseSByZXZpZXdlZCBhbGwg g8ShW0wcPQ4cN2DlyBAvtm KmdeNgSGmmUWIbd3y2dVOk qPbvu8XqkUOmTK00nrByLM CaIAM1WRLke7bvYV10iwfw AiPweG35srMnwfIaFDPqs3 ynU8ouhWItr9Sce8JzkbHb MUbue5LoBK8wtGXixppjeE W2GLKntLPetiIelnT3qHpq PJQcrO8emK5efRiqeB9cUa CyXpRnCVccNA2zEWYmO9sz wOBuUEMzHUEyE4urDuNvwI 3nuQmgMnweoeY5VNStyd83 Final Diagnosis Comment v4cqlNVaSGMypLIdWFKeNk (test code = swreSfOPFjwFQiL4Truuyx 1994143120) HNghVV1lLG5hzCmsgSGkgO RlVOEfZoDmk5epy348gKKu h4liQRVBhmcrlFx0fZqdS7 2rc9A3SnhhV1dhTMB0XBsa znWbnhMtITKvvPE9UEgcvh BkPoK2PKoaLRAwQrA1AWOd mJOsOTE9eHuvWZLlcitmOy T6LMppSANoxrtbOZa3HGwi LYUjsNK8LCLksCYiJ1BwUD TmWV7irtu3BVL2HMsxLGNt BxB3TEKvcGVqCXFxcUczEK zql768WAS9YaGgRVPtthEb xQwjwG6rPlNvMThuNvHfI1 hjYnBhdDJccGFyIFRoZSBh Jc63UQZczQHsjT5koqGkoX Q5WZUzBDSmWCB0VpfjT5Sc WNH9iiKmdp3aezCoiSChbV 0fbCdreuSwocb3KBC1oOSq JPVhekBfscBos0B8MCGma3 W6NRXvu2KyiPbuji3dJ97q qTQsRNWhyHImwRvmve2vHX YgdGhlIHNwZWNpbWVuIGlz GT7gDFWuCQYjg2Gwc2TkEY GgklSqs92kysecvFfvMDQw IQMpgcGxN3MkzAiaAMXwy7 OwjCG6zH2jc2yds7CpOHQd cn0= Clinical Information Acute deep vein (test code = thrombosis (DVT) of 7426339106) iliac vein of both lower extremities [I82.423] Gross Description (test h7lbvYEuCPRgtTJlQDAoVk code = 4790867003) jwlhEbIDKzyEBuJ0Urthxt UBkyIQ0lZX0aeJeitWIbsY CfCLYiXhOwv4qiz339hQUd v7sjWVQAlcajaMe7iAjxE3 3pp3F2LuxgD34bpMCaCGP5 XQYcWEAfvWHtCGHiPAV9NG CrcNGgF9qvEKDeVI9oxpbm KHtoXXygOHLxoIN8WRFtnU EvG0GmZLXfDKhaVLIttdh4 RqAhVx0ofOAlwRvdAUvhMv rweSmyb9OsuXXwUMbwDXPj HROnOOqiHWOoC0PVQHTdGh e2JFUvUUCqGmQSGOG9AbW4 BXQoPAOWMOKqIPlsEPR0Bu kyIiBMUlIgODAwMDAwMDAw LUUwLW7oXFykoUEiDJctLv dnSIyhO308WKggIITbF2Jd Z8OkDHhoTQF8YTAwVwPxMU ZgWO0SMpSfLGP4CCNfNbKz PWe7MUr8ZA9VSrDnPTQqZt L9XyPvITKrHDi4XEvsBQ3Y CFV6KEYmCfi7OOagESH0ZG PnWJw7BVBnBFwtyvXoGEaw UqiiCKrnX18quGWdLWmtqG FpblxmczIwIFNQRUNJTUVO ODMdfWOoWAUvvdYze0AlPC ozkTriFUSlFhCmqBtywP4s HxCeZETTdYKylI6aepOMVY keEILkB5CdpqXjANTuQLMy IGxhYmVsbGVkIHdpdGggdG lmLWAepXarktVyS5I9axGc YQ9rUJJAKUJkzZ7oIDKxEM RyIHJETFHnjnUnB27vNk2r aCznFwXhB6T5PQQqVITup1 2nzSE8fpDsXzErEV2auTWv zKuwHW45fUJcdPYnxglaZR CdMQZzO7YgSVRkgfsvIOUh LB48ZVqfXe7eQHwnLT02YW IzVWofJ0Lmt6GktRTrm68y iMN6CD80TKenhSepHX2lhA 3zBIEzs0GnueDiCSDdKKWh NKTznFNtve1hRPvzy5UvKF 7fZAxtFAppzOebhI2sboHv aGCoEFVfYXSpc3ZnYrXLcJ Erj3NcK1lrNV8hhOUiFw9r MXdrf1IcHQA2QM5vwtH8lY 5lWI1afNjiORnaLIUtsBJf ZFxmczIyXHBhclxzYTMwXG IvzPQGp6JcXJXIeDnuCFJB L5rbhSVsIRbrIPYGRCsVI9 MXTYmeAZErO1JjM7JbdoN8 f0xazIoyi1MsvAVbDF1pyH FyfQ== Disclaimer (test code = f3sahBMeEYLta1sqGTVifH 0075882913) FuZzEwMzNcZnRuYmpcdWMx YSdjivVkOBdyw3SpY2IqVn AwMFxhbnNpXGRlZmxhbmcx VUPnUNA5ipDlIKVtDSprPG TbTEsnVn9qyQMpkTowQdUe TRLzo7lazpFFWGbsOyMbF3 85ANExLUtxi8klh6GbACNo pOObn0M1DRJOzmuoaLj4bQ vwF01tl5O9GmbsL3tvFITz HUJlS5XpTW5pMTVbYhf2LT Y0YOO2QCEyOAHwW7PyVP8v GPJhmZFdZDm2d2kteNihDF AuVYL9e4dfJWcolnPuBS9x gh6uiNw3r2buacUgQKGlCC UpjMAPQDLjE7DpiCegBm4g iGo3gUhrMlunBJP2Wun2DH 5cmv32cas3cCavHJKkjzzx ScI9NLxrRCBfpfiiECp8SK jxLYOobII3HOVufYVtU2Dd DFUpPP2qjtl0SPI1HJbhJC ZxDuD5FPOwlVSgSFRdoMhi TLoct437RWJ8ZeIpZI4gW8 Lfh9A6sJ6gwPQoZEMitGTw GbTrJTGicf1qjCWrUFyqg2 HqTEO0zbO4xRFjoZLxHOWt DG10Gkgdo6EtJunnr7LuP1 2bqZL5KRxmt6lwSB6zDbE2 ihIrDOayf6owpN0wKwS5JV alNL5nHG8vBVMubS5gulji XHBnYnJkcmhlYWRccGdicm KvTu1qbLkiHDQ5YDxeQ2gi vB6uZhP1FAoqW6yjpB6wZO a1YIfnxDB2ODPmuM1kWA5g fthlg6cgLSoxVBjpBSUfdd N4zuE4QGGkpZKcF3PcuW2c OISfLJ9jyzlhf8rwXXG3GJ cmSOZkEAV6PuHmDZSke9Hn ehh0HzFtj0IufSRiUNxsF6 6dh414ZMGneeJmE8qbpFCe bosvhAQopaqoOQhtqsE5PW XfadQry8AvQNPyWBB4NZmk BEsnsWXmYSOkqQrwb3nqW1 RscGFyXHBsYWluXGYxXGZz MjBcbGFuZzEwMzNcaGljaF vnWUioQkMvHJUiCKjfP6xi OpQuC7CnBQDrHhKtoUYtW9 ggVGhpcyByZXBvcnQgbWF5 IXkuJ3c6RTZbeeKddEz1ir RjRpFtJCBeQZU8XUryuZWi CUYjr1XszdbtlYKwIs0hlC CxUBAhzO7mHPTzLAOgYCxl UO9eiAq1VERIkCCysFYhEy ZOPADiDU55nlPfNXPYwofj q8Q6ENofGLIwb7UqbJOxE9 aoc9BrDZKnp67dSQ6hr7S5 s4nyMIJ4LP5id3CoVEOdmZ OorWYiWRFis0Sxpawpn1Kb CHSjxbAcv4JoFUPivgItvN SbGVFffwDpkm1frpUpDLKd KZIkX8DycxekxMeidfZzJW Ypoh8qydAiAES5WKIUMEXa OLCfa9QqeU7rfWNMVIU3dG Yoqr4hqtBIjNJqSXSvjs98 WXSnCR7rD0vpVWGqBLOprh KzoLZac2GbLKMvbCF2uYBi RN6EPoRDg25hATViNPPQxa CxSIMmoBpamUQ3rpB6dS2u IChGREEpLlx+IFRoZSBGRE JeYC9yvrPpy9DhazSjtTzy KWKloXRqa2QlsAVxb6AhbO fxh9VqoDXauYPkIZ5kVLAv clxwYXIgVVRNQiBMYWJvcm B6p7CfRNCtBKOwNZR8wXfu swj7RBNkoN5rFWYtF9hyic tsJYahVIIbg4XdfU5oaTGI rYDph9SmzKNjbKLGwXZnOE 0zqrDzDJrQPTqAJHS1voGn QZZvm4CfKSfxT9mnW75pwE mlcVb2yAL0HTV7sV3mRqa+ IFxwYXJccGFyIEFwcHJvcH WhNKInnDxozeGbA5GoreEm bW5vuMRhhcBbOF7dQJ7fR5 O3wTCkMEJyirFxf6clWLrj dmUgYmVlbiByZXZpZXdlZC Elb9NtBQbiTZS0XAjoacRs bmNsdWRpbmcgSCZFLCBTcG NxcMAsMDA4ZRvftlDfhbDd RW3itO5xsKwiqD0yzQVkuN Q3mrbzOCQrYISalLgnGQYm JN0oxLZuOUGvmsUAyJtgbH ScoH4gF4PhIATaHWHent9i PHDeeY9qJXiyp8AtslziIS DzFAWqJBWlltSkqr3tWLLy zUNZPU7WDXqsaDKdd9Fajh SfF5uICSU2WONsDwLnYaos JAHgcGNgaWDfXDNrnp10UK RnqP3wgRadSPKsjL1reU8p zSqipV6tEnJpXjTeRIelED 4cJQMpK4cgpTAnJKEgZJXf S7lcBgQvwP1tpWjuHGtuSw QzBzEwOVvnKQU4nD== Embedded Images (test code = 5277322105) [facility] METABOLIC PANEL (NA, K, CL, CO2, GLUCOSE, BUN, CREATININE, CA)2022-06-07 09:52:38 Test Item Value Reference Range Interpretation Comments NA (test code = 135 mmol/L 135-145 5348889309) K (test code = 4.0 mmol/L 3.5-5.0 2937724515) CL (test code = 104 mmol/L 98-108 8603372359) CO2 TOTAL (test code = 25 mmol/L 23-31 1515597444) AGAP (test code = 6 2-16 6011890781) BUN (test code = 16 mg/dL 7-23 7561060878) GLUCOSE (test code = 144 mg/dL 70-110 H 5776723446) CREATININE (test code = 1.10 mg/dL 0.60-1.25 4142461226) CALCIUM (test code = 8.4 mg/dL 8.6-10.6 L 8094901283) eGFR (test code = 68.5 mL/min/1.73m2 4365509887) DEWAYNE (test code = DEWAYNE) Association of [...] tests). Lab Interpretation Abnormal (test code = 75901-0) [facility] Test Item Value Reference Range Interpretation Comments MAGNESIUM (test code = 0207571498) 2.5 mg/dL 1.7-2.4 H Lab Interpretation (test code = Abnormal 43431-6) [facility] 09[facility]38 Test Item Value Reference Range Interpretation Comments PHOSPHORUS (test code = 2136709969) 3.9 mg/dL 2.5-5.0 Lab Interpretation (test code = Normal 13412-3) [facility] WITH [id number] 12:15:07 Test Item Value Reference Range Interpretation Comments WBC (test code = 6.35 See_Comment [Automated 3190-2) message] The sy stem which generated this result transmitted reference range : 4.20 - 10.70 10*3/?L. The reference range was not used to interpret this result as normal/abnormal . RBC (test code = 2.65 See_Comment L [Automated 421-8) message] The sy stem which generated this [...] RDW-SD (test code = 51.5 fL 38.5-51.6 52386-2) RDW-CV (test code = 15.9 % 12.1-15.4 H 788-0) PLT (test code = 115 See_Comment L [Automated 777-3) message] The sy stem which generated this result transmitted reference range : 150 - 328 10*3/ ?L. The reference r mitra was not used to interpret this result as normal/abnormal . MPV (test code = 9.9 fL 9.8-13.0 92228-1) IPF % (test code = 2.9 % 1.2-10.7 Platelet count 3273788269) measured by fluorescence method. NRBC/100 WBC (test 0.3 See_Comment [Automat ed code = 6675689408) message] The system which generated this result transmitted reference range : 0.0 - 10.0 /100 WBCs. The refer ence range was not u sed to interpret th is result as normal/abnormal . NRBC x10^3 (test code 0.02 See_Comment [Auto mated = 2526388462) message] The s ystem which generated this result transmitted reference range : 10*3/?L. The reference range was not used to interpret this result as normal/abnormal . GRAN MAT (NEUT) % 60.5 % (test code = 770-8) IMM GRAN % (test code 1.70 % = 4104273102) LYMPH % (test code = 24.7 % 736-9) MONO % (test code = 8.7 % 5905-5) EOS % (test code = 3.9 % 713-8) BASO % (test code = 0.5 % 706-2) GRAN MAT x10^3(ANC) 3.84 10*3/uL 1.99-6.95 (test code = 1863732935) IMM GRAN x10^3 (test 0.11 10*3/uL 0.00-0.06 H code = 5154783547) LYMPH x10^3 (test code 1.57 10*3/uL 1.09-3.23 = 731-0) MONO x10^3 (test code 0.55 10*3/uL 0.36-1.02 = 742-7) EOS x10^3 (test code = 0.25 10*3/uL 0.06-0.53 711-2) BASO x10^3 (test code 0.03 10*3/uL 0.01-0.09 = 704-7) Lab Interpretation Abnormal (test code = 97097-5) [facility] WITH [id number] 12:15:07 Test Item Value Reference Range Interpretation [...] RDW-SD (test code = 51.5 fL 38.5-51.6 07135-5) RDW-CV (test code = 15.9 % 12.1-15.4 H 788-0) PLT (test code = 115 See_Comment L [Automated 777-3) message] The sy stem which generated this result transmitted reference range : 150 - 328 10*3/ ?L. The reference r mitra was not used to interpret this result as normal/abnormal . MPV (test code = 9.9 fL 9.8-13.0 71621-8) IPF % (test code = 2.9 % 1.2-10.7 Platelet count 0816752889) measured by fluorescence method. NRBC/100 WBC (test 0.3 See_Comment [Automat ed code = 2732826402) message] The system which generated this result transmitted reference range : 0.0 - 10.0 /100 WBCs. The refer ence range was not u sed to interpret th is result as normal/abnormal . NRBC x10^3 (test code 0.02 See_Comment [Auto mated = 6032388590) message] The s ystem which generated this result transmitted reference range : 10*3/?L. The reference range was not used to interpret this result as normal/abnormal . GRAN MAT (NEUT) % 60.5 % (test code = 770-8) IMM GRAN % (test code 1.70 % = 5864661847) LYMPH % (test code = 24.7 % 736-9) MONO % (test code = 8.7 % 5905-5) EOS % (test code = 3.9 % 713-8) BASO % (test code = 0.5 % 706-2) GRAN MAT x10^3(ANC) 3.84 10*3/uL 1.99-6.95 (test code = 2495929103) IMM GRAN x10^3 (test 0.11 10*3/uL 0.00-0.06 H code = 8412902981) LYMPH x10^3 (test code 1.57 10*3/uL 1.09-3.23 = 731-0) MONO x10^3 (test code 0.55 10*3/uL 0.36-1.02 = 742-7) EOS x10^3 (test code = 0.25 10*3/uL 0.06-0.53 711-2) BASO x10^3 (test code 0.03 10*3/uL 0.01-0.09 = 704-7) Lab Interpretation Abnormal (test code = 75745-7) [facility] Test Item Value Reference Range Interpretation Comments MAGNESIUM (test code = 5571378621) 2.4 mg/dL 1.7-2.4 Lab Interpretation (test code = Normal 39044-7) [facility]01 Test Item Value Reference Range Interpretation Comments PHOSPHORUS (test code = 9044874280) 4.1 mg/dL 2.5-5.0 Lab Interpretation (test code = Normal 24402-6) [facility] (NA, K, CL, CO2, GLUCOSE, BUN, CREATININE, CA)2022-06-05 11:43:01 Test Item Value Reference Range Interpretation Comments NA (test code = 137 mmol/L 135-145 3065401120) K (test code = 3.8 mmol/L 3.5-5.0 0644021944) CL (test code = 105 mmol/L 98-108 3186552674) CO2 TOTAL (test code = 28 mmol/L 23-31 2293264689) AGAP (test code = 4 2-16 2879505070) BUN (test code = 17 mg/dL 7-23 8472274052) GLUCOSE (test code = 86 mg/dL 70-110 0327328133) CREATININE (test code = 1.06 mg/dL 0.60-1.25 5323870599) CALCIUM (test code = 8.4 mg/dL 8.6-10.6 L 3154255147) eGFR (test code = 71.5 mL/min/1.73m2 8702042098) DEWAYNE (test code = DEWAYNE) Association of [...] tests). Lab Interpretation Abnormal (test code = 00558-2) [facility] 11:43:01 Test Item Value Reference Range Interpretation Comments MAGNESIUM (test code = 7896728654) 2.4 mg/dL 1.7-2.4 Lab Interpretation (test code = Normal 39382-4) [facility] 11:43:01 Test Item Value Reference Range Interpretation Comments PHOSPHORUS (test code = 4681555897) 4.1 mg/dL 2.5-5.0 Lab Interpretation (test code = Normal 65590-9) [facility] (NA, K, CL, CO2, GLUCOSE, BUN, CREATININE, CA)2022-06-05 11:43:01 Test Item Value Reference Range Interpretation Comments NA (test code = 137 mmol/L 135-145 4730736351) K (test code = 3.8 mmol/L 3.5-5.0 1894032093) CL (test code = 105 mmol/L 98-108 1231201673) CO2 TOTAL (test code = 28 mmol/L 23-31 9300204727) AGAP (test code = 4 2-16 6640632483) BUN (test code = 17 mg/dL 7-23 4448465840) GLUCOSE (test code = 86 mg/dL 70-110 5796380437) CREATININE (test code = 1.06 mg/dL 0.60-1.25 9532165475) CALCIUM (test code = 8.4 mg/dL 8.6-10.6 L 6431374083) eGFR (test code = 71.5 mL/min/1.73m2 5357268341) DEWAYNE (test code = DEWAYNE) Association of [...] tests). Lab Interpretation Abnormal (test code = 03382-9) [facility] (ALB,T.PRO,BILI T,BU/BC,ALT,AST,ALK PHOS)2022-06-04 08:25:57 Test Item Value Reference Range Interpretation Comments TOTAL BILI (test code = 7057880296) 0.7 mg/dL 0.1-1.1 BILI UNCON (test code = 0097594586) 0.3 mg/dL 0.1-1.1 BILI CONJ (test code = 2935326288) 0.0 mg/dL 0.0-0.3 T PROTEIN (test code = 5327518929) 6.4 g/dL 6.3-8.2 ALBUMIN (test code = 8767960249) 3.7 g/dL 3.5-5.0 ALK PHOS (test code = 0833117958) 105 U/L 34-122 ALTv (test code = 1742-6) 71 U/L 5-50 H AST(SGOT) (test code = 3828381223) 51 U/L 13-40 H Lab Interpretation (test code = Abnormal 99228-0) [facility] (ALB,T.PRO,BILI T,BU/BC,ALT,AST,ALK PHOS)2022-06-04 08:25:57 Test Item Value Reference Range Interpretation Comments TOTAL BILI (test code = 9674353806) 0.7 mg/dL 0.1-1.1 BILI UNCON (test code = 5418252616) 0.3 mg/dL 0.1-1.1 BILI CONJ (test code = 9956826543) 0.0 mg/dL 0.0-0.3 T PROTEIN (test code = 3766192310) 6.4 g/dL 6.3-8.2 ALBUMIN (test code = 9737171897) 3.7 g/dL 3.5-5.0 ALK PHOS (test code = 5507484359) 105 U/L 34-122 ALTv (test code = 1742-6) 71 U/L 5-50 H AST(SGOT) (test code = 3620286169) 51 U/L 13-40 H Lab Interpretation (test code = Abnormal 77925-2) [facility] [id number] 06:14:08 Test Item Value Reference Range Interpretation Comments TROPONIN I (test code = 0.027 ng/mL <=0.034 5073861713) DEWAYNE (test code = DEWAYNE) Reference (Normal) [...] biotin. Lab Interpretation Normal (test code = 31251-6) [facility] [id number] 06:14:08 Test Item Value Reference Range Interpretation Comments TROPONIN I (test code = 0.027 ng/mL <=0.034 4612428624) DEWAYNE (test code = DEWAYNE) Reference (Normal) [...] biotin. Lab Interpretation Normal (test code = 88009-0) [facility] WITH [id number] 05:33:25 Test Item Value Reference Range Interpretation Comments WBC (test code = 9.78 See_Comment [Automated 1655-2) message] The sy stem which generated this result transmitted reference range : 4.20 - 10.70 10*3/?L. The reference range was not used to interpret this result as normal/abnormal . RBC (test code = 2.85 See_Comment L [Automated 457-8) message] The sy stem which generated this [...] RDW-SD (test code = 50.4 fL 38.5-51.6 39639-2) RDW-CV (test code = 15.9 % 12.1-15.4 H 788-0) PLT (test code = 121 See_Comment L [Automated 777-3) message] The sy stem which generated this result transmitted reference range : 150 - 328 10*3/ ?L. The reference r mitra was not used to interpret this result as normal/abnormal . MPV (test code = 8.7 fL 9.8-13.0 L 10261-3) IPF % (test code = 2.3 % 1.2-10.7 Platelet count 7135181963) measured by fluorescence method. NRBC/100 WBC (test 0.6 See_Comment [Automat ed code = 2999647643) message] The system which generated this result transmitted reference range : 0.0 - 10.0 /100 WBCs. The refer ence range was not u sed to interpret th is result as normal/abnormal . NRBC x10^3 (test code 0.06 See_Comment [Auto mated = 4854878566) message] The s ystem which generated this result transmitted reference range : 10*3/?L. The reference range was not used to interpret this result as normal/abnormal . GRAN MAT (NEUT) % 80.9 % (test code = 770-8) IMM GRAN % (test code 4.80 % = 2251697123) LYMPH % (test code = 8.6 % 736-9) MONO % (test code = 5.6 % 5905-5) EOS % (test code = 0.0 % 713-8) BASO % (test code = 0.1 % 706-2) GRAN MAT x10^3(ANC) 7.91 10*3/uL 1.99-6.95 H (test code = 1353034341) IMM GRAN x10^3 (test 0.47 10*3/uL 0.00-0.06 H code = 0229280201) LYMPH x10^3 (test code 0.84 10*3/uL 1.09-3.23 L = 731-0) MONO x10^3 (test code 0.55 10*3/uL 0.36-1.02 = 742-7) EOS x10^3 (test code = 0.06-0.53 L 711-2) BASO x10^3 (test code 0.01-0.09 = 704-7) Lab Interpretation Abnormal (test code = 62488-1) [facility] WITH [id number] 05:33:25 Test Item Value Reference Range Interpretation [...] RDW-SD (test code = 50.4 fL 38.5-51.6 57801-9) RDW-CV (test code = 15.9 % 12.1-15.4 H 788-0) PLT (test code = 121 See_Comment L [Automated 777-3) message] The sy stem which generated this result transmitted reference range : 150 - 328 10*3/ ?L. The reference r mitra was not used to interpret this result as normal/abnormal . MPV (test code = 8.7 fL 9.8-13.0 L 46757-1) IPF % (test code = 2.3 % 1.2-10.7 Platelet count 0426259946) measured by fluorescence method. NRBC/100 WBC (test 0.6 See_Comment [Automat ed code = 6672003767) message] The system which generated this result transmitted reference range : 0.0 - 10.0 /100 WBCs. The refer ence range was not u sed to interpret th is result as normal/abnormal . NRBC x10^3 (test code 0.06 See_Comment [Auto mated = 5605049954) message] The s ystem which generated this result transmitted reference range : 10*3/?L. The reference range was not used to interpret this result as normal/abnormal . GRAN MAT (NEUT) % 80.9 % (test code = 770-8) IMM GRAN % (test code 4.80 % = 4576229002) LYMPH % (test code = 8.6 % 736-9) MONO % (test code = 5.6 % 5905-5) EOS % (test code = 0.0 % 713-8) BASO % (test code = 0.1 % 706-2) GRAN MAT x10^3(ANC) 7.91 10*3/uL 1.99-6.95 H (test code = 7993338024) IMM GRAN x10^3 (test 0.47 10*3/uL 0.00-0.06 H code = 5997739431) LYMPH x10^3 (test code 0.84 10*3/uL 1.09-3.23 L = 731-0) MONO x10^3 (test code 0.55 10*3/uL 0.36-1.02 = 742-7) EOS x10^3 (test code = 0.06-0.53 L 711-2) BASO x10^3 (test code 0.01-0.09 = 704-7) Lab Interpretation Abnormal (test code = 23092-6) [facility] METABOLIC PANEL (NA, K, CL, CO2, GLUCOSE, BUN, CREATININE, CA)2022-06-04 05:32:04 Test Item Value Reference Range Interpretation Comments NA (test code = 136 mmol/L 135-145 4714623403) K (test code = 4.1 mmol/L 3.5-5.0 9025930562) CL (test code = 104 mmol/L 98-108 4723855728) CO2 TOTAL (test code = 25 mmol/L 23-31 5480790787) AGAP (test code = 7 2-16 1988853152) BUN (test code = 19 mg/dL - 6679086029) GLUCOSE (test code = 166 mg/dL 70-110 H 5445393499) CREATININE (test code = 1.00 mg/dL 0.60-1.25 9682215872) CALCIUM (test code = 8.8 mg/dL 8.6-10.6 6871749001) eGFR (test code = 76.5 mL/min/1.73m2 3000205590) DEWAYNE (test code = DEWAYNE) Association of [...] tests). Lab Interpretation Abnormal (test code = 69867-1) [facility] METABOLIC PANEL (NA, K, CL, CO2, GLUCOSE, BUN, CREATININE, CA)2022-06-04 05:32:04 Test Item Value Reference Range Interpretation Comments NA (test code = 136 mmol/L 135-145 7303949871) K (test code = 4.1 mmol/L 3.5-5.0 5689942091) CL (test code = 104 mmol/L 98-108 4331686306) CO2 TOTAL (test code = 25 mmol/L 23-31 4334099915) AGAP (test code = 7 2-16 5540790425) BUN (test code = 19 mg/dL 7-23 0863327536) GLUCOSE (test code = 166 mg/dL 70-110 H 2334521275) CREATININE (test code = 1.00 mg/dL 0.60-1.25 4377361568) CALCIUM (test code = 8.8 mg/dL 8.6-10.6 3737736513) eGFR (test code = 76.5 mL/min/1.73m2 6778555375) DEWAYNE (test code = DEWAYNE) Association of [...] tests). Lab Interpretation Abnormal (test code = 56068-0) [facility] use [facility] Drip[facility]2022-06-04 05:24:43 Test Item Value Reference Range Interpretation Comments APTT Patient (test code 105 See_Comment [Au tomated message] = 3173-2) The system [employer] generated this result transmitted ref erence range: 26 - 36 Seconds. The reference range was not used to int erpret this result as normal/abnormal . Lab Interpretation (test Abnormal code = 52674-0) [facility] (for use with Heparin Drip)2022-06-04 05:24:43 Test Item Value Reference Range Interpretation Comments APTT Patient (test code 105 See_Comment [Au tomated message] = 3173-2) The system [employer] generated this result transmitted ref erence range: 26 - 36 Seconds. The reference range was not used to int erpret this result as normal/abnormal . Lab Interpretation (test Abnormal code = 40959-3) [facility]COOX+NA+K+GLU+CA2+2022-06-04 02:57:07 Test Item Value Reference Range Interpretation Comments PH (test code = 2) 7.31 7.35-7.45 L PCO2 (test code = 42 See_Comment [Automate d message] 1608434888) The system [employer] generated this result transmit elizabeth reference range : 35 - 45 mmHg. The reference range was not used to interpret this result as normal/abnormal . PO2 (test code = 144 See_Comment H [Automated message] 1044169923) The system [employer] generated this result transmit elizabeth reference range : 80 - 100 mmHg. The reference range was not used to interpret this result as normal/abnormal . HCO3 (test code = 21 See_Comment L [Automate d message] 7140107820) The system [employer] generated this result transmit elizabeth reference range : 22 - 26 mEq/L. The reference range was not used to interpret this result as normal/abnormal . BE (test code = -4.8 See_Comment L [Automated message] 2449930147) The system [employer] generated this result transmit elizabeth reference range : -3.0 - 3.0 mEq/ L. The reference r mitra was not used to interpret this result as normal/abnormal . THB (test code = 9.6 g/dL 13.5-18.0 L 1485097304) %O2HB (test code = 98.4 % 94.0-99.0 8952368053) %COHB ART (test code = 0.1 % 0.0-1.5 0125662299) %METHB ART (test code = 0.1 % 0.4-1.5 L 5802052216) VOL%O2 ART (test code = 13.6 % 15.0-23.0 L QUES 8400929705) NA (test code = 133 mmol/L 135-145 L 7502509557) K+ (test code = 4.6 mmol/L 3.5-5.0 9825156598) AC CA IONZ (test code = 4.40 mg/dL 4.50-5.30 L 6681333963) GLUCOSE (test code = 148 mg/dL 70-110 H 2526930658) Lab Interpretation Abnormal (test code = 46367-4) [facility]+K+GLU+CA2+2022-06-04 02:57:07 Test Item Value Reference Range Interpretation Comments PH (test code = 2) 7.31 7.35-7.45 L PCO2 (test code = 42 See_Comment [Automate d message] 2033821745) The system [employer] generated this result transmit elizabeth reference range : 35 - 45 mmHg. The reference range was not used to interpret this result as normal/abnormal . PO2 (test code = 144 See_Comment H [Automated message] 2955043087) The system [employer] generated this result transmit elizabeth reference range : 80 - 100 mmHg. The reference range was not used to interpret this result as normal/abnormal . HCO3 (test code = 21 See_Comment L [Automate d message] 4638826208) The system [employer] generated this result transmit elizabeth reference range : 22 - 26 mEq/L. The reference range was not used to interpret this result as normal/abnormal . BE (test code = -4.8 See_Comment L [Automated message] 6198337359) The system [employer] generated this result transmit elizabeth reference range : -3.0 - 3.0 mEq/ L. The reference r mitra was not used to interpret this result as normal/abnormal . THB (test code = 9.6 g/dL 13.5-18.0 L 4687742875) %O2HB (test code = 98.4 % 94.0-99.0 2987180863) %COHB ART (test code = 0.1 % 0.0-1.5 6020313184) %METHB ART (test code = 0.1 % 0.4-1.5 L 8985330244) VOL%O2 ART (test code = 13.6 % 15.0-23.0 L QUES 6841889154) NA (test code = 133 mmol/L 135-145 L 5516889933) K+ (test code = 4.6 mmol/L 3.5-5.0 9735429106) AC CA IONZ (test code = 4.40 mg/dL 4.50-5.30 L 7220279062) GLUCOSE (test code = 148 mg/dL 70-110 H 2769513774) Lab Interpretation Abnormal (test code = 70314-0) [facility]+K+GLU+CA2+2022-06-04 02:55:52 Test Item Value Reference Range Interpretation Comments PH (test code = 2) 7.31 7.35-7.45 L PCO2 (test code = 38 See_Comment [Automate d message] 5913105846) The system [employer] generated this result transmit elizabeth reference range : 35 - 45 mmHg. The reference range was not used to interpret this result as normal/abnormal . PO2 (test code = 180 See_Comment H [Automated message] 6873069224) The system [employer] generated this result transmit elizabeth reference range : 80 - 100 mmHg. The reference range was not used to interpret this result as normal/abnormal . HCO3 (test code = 19 See_Comment L [Automate d message] 4123717158) The system [employer] generated this result transmit elizabeth reference range : 22 - 26 mEq/L. The reference range was not used to interpret this result as normal/abnormal . BE (test code = -7.2 See_Comment L [Automated message] 4324270446) The system [employer] generated this result transmit elizabeth reference range : -3.0 - 3.0 mEq/ L. The reference r mitra was not used to interpret this result as normal/abnormal . THB (test code = 8.4 g/dL 13.5-18.0 L 8512358558) %O2HB (test code = 98.1 % 94.0-99.0 5072386421) %COHB ART (test code = 0.4 % 0.0-1.5 7171560196) %METHB ART (test code = 0.3 % 0.4-1.5 L 7283584373) VOL%O2 ART (test code = 12.0 % 15.0-23.0 L QUES 5284884946) NA (test code = 135 mmol/L 135-145 6310116113) K+ (test code = 4.1 mmol/L 3.5-5.0 8136788467) AC CA IONZ (test code = 4.90 mg/dL 4.50-5.30 2757758854) GLUCOSE (test code = 128 mg/dL 70-110 H 1281270143) Lab Interpretation Abnormal (test code = 56157-0) [facility]+K+GLU+CA2+2022-06-04 02:55:52 Test Item Value Reference Range Interpretation Comments PH (test code = 2) 7.31 7.35-7.45 L PCO2 (test code = 38 See_Comment [Automate d message] 9587883635) The system [employer] generated this result transmit elizabeth reference range : 35 - 45 mmHg. The reference range was not used to interpret this result as normal/abnormal . PO2 (test code = 180 See_Comment H [Automated message] 9281727138) The system [employer] generated this result transmit elizabeth reference range : 80 - 100 mmHg. The reference range was not used to interpret this result as normal/abnormal . HCO3 (test code = 19 See_Comment L [Automate d message] 2592229608) The system [employer] generated this result transmit elizabeth reference range : 22 - 26 mEq/L. The reference range was not used to interpret this result as normal/abnormal . BE (test code = -7.2 See_Comment L [Automated message] 4811466888) The system [employer] generated this result transmit elizabeth reference range : -3.0 - 3.0 mEq/ L. The reference r mitra was not used to interpret this result as normal/abnormal . THB (test code = 8.4 g/dL 13.5-18.0 L 6447623076) %O2HB (test code = 98.1 % 94.0-99.0 2105561553) %COHB ART (test code = 0.4 % 0.0-1.5 0866120680) %METHB ART (test code = 0.3 % 0.4-1.5 L 1428428948) VOL%O2 ART (test code = 12.0 % 15.0-23.0 L QUES 0650768000) NA (test code = 135 mmol/L 135-145 0368330786) K+ (test code = 4.1 mmol/L 3.5-5.0 8475636156) AC CA IONZ (test code = 4.90 mg/dL 4.50-5.30 9240266605) GLUCOSE (test code = 128 mg/dL 70-110 H 5053306416) Lab Interpretation Abnormal (test code = 96626-2) [facility] [id number] 13:22:00 Test Item Value Reference Range Interpretation Comments ABO & RH (test code = 20) AB POSITIVE IAT (test code = 1185) Negative [facility] - ONCE [id number] 13:22:00 Test Item Value Reference Range Interpretation Comments ABO & RH (test code = 20) AB POSITIVE IAT (test code = 1185) Negative [facility] WITH [id number] 11:35:29 Test Item Value Reference Range Interpretation Comments WBC (test code = 11.02 See_Comment H [Automated 1099-2) message] The sy stem which generated this result transmitted reference range : 4.20 - 10.70 10*3/?L. The reference range was not used to interpret this result as normal/abnormal . RBC (test code = 3.21 See_Comment L [Automated 609-8) message] The sy stem which generated this [...] RDW-SD (test code = 50.8 fL 38.5-51.6 73768-8) RDW-CV (test code = 15.9 % 12.1-15.4 H 788-0) PLT (test code = 265 See_Comment [Automated 777-3) message] The sy stem which generated this result transmitted reference range : 150 - 328 10*3/ ?L. The reference r mitra was not used to interpret this result as normal/abnormal . MPV (test code = 9.0 fL 9.8-13.0 L 89087-1) NRBC/100 WBC (test 0.5 See_Comment [Automat ed code = 7981785439) message] The system which generated this result transmitted reference range : 0.0 - 10.0 /100 WBCs. The refer ence range was not u sed to interpret th is result as normal/abnormal . NRBC x10^3 (test code 0.06 See_Comment [Auto mated = 9050460730) message] The s ystem which generated this result transmitted reference range : 10*3/?L. The reference range was not used to interpret this result as normal/abnormal . GRAN MAT (NEUT) % 67.4 % (test code = 770-8) IMM GRAN % (test code 5.90 % = 8434569547) LYMPH % (test code = 13.6 % 736-9) MONO % (test code = 8.5 % 5905-5) EOS % (test code = 4.1 % 713-8) BASO % (test code = 0.5 % 706-2) GRAN MAT x10^3(ANC) 7.42 10*3/uL 1.99-6.95 H (test code = 2391992473) IMM GRAN x10^3 (test 0.65 10*3/uL 0.00-0.06 H code = 2972778868) LYMPH x10^3 (test code 1.50 10*3/uL 1.09-3.23 = 731-0) MONO x10^3 (test code 0.94 10*3/uL 0.36-1.02 = 742-7) EOS x10^3 (test code = 0.45 10*3/uL 0.06-0.53 711-2) BASO x10^3 (test code 0.06 10*3/uL 0.01-0.09 = 704-7) Lab Interpretation Abnormal (test code = 50641-0) [facility] WITH [id number] 11:35:29 Test Item Value Reference Range Interpretation [...] RDW-SD (test code = 50.8 fL 38.5-51.6 52648-1) RDW-CV (test code = 15.9 % 12.1-15.4 H 788-0) PLT (test code = 265 See_Comment [Automated 777-3) message] The sy stem which generated this result transmitted reference range : 150 - 328 10*3/ ?L. The reference r mitra was not used to interpret this result as normal/abnormal . MPV (test code = 9.0 fL 9.8-13.0 L 83024-6) NRBC/100 WBC (test 0.5 See_Comment [Automat ed code = 2584560411) message] The system which generated this result transmitted reference range : 0.0 - 10.0 /100 WBCs. The refer ence range was not u sed to interpret th is result as normal/abnormal . NRBC x10^3 (test code 0.06 See_Comment [Auto mated = 7169025442) message] The s ystem which generated this result transmitted reference range : 10*3/?L. The reference range was not used to interpret this result as normal/abnormal . GRAN MAT (NEUT) % 67.4 % (test code = 770-8) IMM GRAN % (test code 5.90 % = 2227349908) LYMPH % (test code = 13.6 % 736-9) MONO % (test code = 8.5 % 5905-5) EOS % (test code = 4.1 % 713-8) BASO % (test code = 0.5 % 706-2) GRAN MAT x10^3(ANC) 7.42 10*3/uL 1.99-6.95 H (test code = 4434590606) IMM GRAN x10^3 (test 0.65 10*3/uL 0.00-0.06 H code = 5807378127) LYMPH x10^3 (test code 1.50 10*3/uL 1.09-3.23 = 731-0) MONO x10^3 (test code 0.94 10*3/uL 0.36-1.02 = 742-7) EOS x10^3 (test code = 0.45 10*3/uL 0.06-0.53 711-2) BASO x10^3 (test code 0.06 10*3/uL 0.01-0.09 = 704-7) Lab Interpretation Abnormal (test code = 87946-4) [facility] 11:30:46 Test Item Value Reference Range Interpretation Comments MAGNESIUM (test code = 6505008544) 2.4 mg/dL 1.7-2.4 Lab Interpretation (test code = Normal 68338-4) [facility] 11:30:46 Test Item Value Reference Range Interpretation Comments PHOSPHORUS (test code = 9458025757) 4.8 mg/dL 2.5-5.0 Lab Interpretation (test code = Normal 43839-9) [facility] METABOLIC PANEL (NA, K, CL, CO2, GLUCOSE, BUN, CREATININE, CA)2022-06-03 11:30:46 Test Item Value Reference Range Interpretation Comments NA (test code = 136 mmol/L 135-145 0387303390) K (test code = 4.2 mmol/L 3.5-5.0 8505640281) CL (test code = 104 mmol/L 98-108 9013884147) CO2 TOTAL (test code 26 mmol/L 23-31 = 4826589586) AGAP (test code = 6 2-16 2622494408) BUN (test code = 18 mg/dL 7-23 1996032496) GLUCOSE (test code = 103 mg/dL 70-110 6033169294) CREATININE (test code 1.08 mg/dL 0.60-1.25 = 4837590609) CALCIUM (test code = 8.7 mg/dL 8.6-10.6 1036653358) eGFR (test code = 70.0 mL/min/1.73m2 9856110893) DEWAYNE (test code = DEWAYNE) Association of [...] or urine or abnormalities in imaging tests). [facility] 11:30:46 Test Item Value Reference Range Interpretation Comments MAGNESIUM (test code = 4104974096) 2.4 mg/dL 1.7-2.4 Lab Interpretation (test code = Normal 77402-7) [facility] 11:30:46 Test Item Value Reference Range Interpretation Comments PHOSPHORUS (test code = 2212335686) 4.8 mg/dL 2.5-5.0 Lab Interpretation (test code = Normal 67994-7) [facility] (NA, K, CL, CO2, GLUCOSE, BUN, CREATININE, CA)2022-06-03 11:30:46 Test Item Value Reference Range Interpretation Comments NA (test code = 136 mmol/L 135-145 9943085382) K (test code = 4.2 mmol/L 3.5-5.0 1931579839) CL (test code = 104 mmol/L 98-108 8218094922) CO2 TOTAL (test code 26 mmol/L 23-31 = 7972363028) AGAP (test code = 6 2-16 5950780319) BUN (test code = 18 mg/dL 7-23 8179212076) GLUCOSE (test code = 103 mg/dL 70-110 9250653041) CREATININE (test code 1.08 mg/dL 0.60-1.25 = 0686979050) CALCIUM (test code = 8.7 mg/dL 8.6-10.6 0269446351) eGFR (test code = 70.0 mL/min/1.73m2 9221783972) DEWAYNE (test code = DEWAYNE) Association of [...] or urine or abnormalities in imaging tests). [facility]for use with Heparin Drip)2022-06-03 11:15:05 Test Item Value Reference Range Interpretation Comments APTT Patient (test code 52 See_Comment H [Au tomated message] = 3173-2) The system [employer] generated this result transmitted ref erence range: 26 - 36 Seconds. The reference range was not used to int erpret this result as normal/abnormal . Lab Interpretation (test Abnormal code = 80002-5) [facility] (for use with Heparin Drip)2022-06-03 11:15:05 Test Item Value Reference Range Interpretation Comments APTT Patient (test code 52 See_Comment H [Au tomated message] = 3173-2) The system [employer] generated this result transmitted ref erence range: 26 - 36 Seconds. The reference range was not used to int erpret this result as normal/abnormal . Lab Interpretation (test Abnormal code = 46215-0) [facility] METABOLIC PANEL (NA, K, CL, CO2, GLUCOSE, BUN, CREATININE, CA)2022-06-02 13:56:04 Test Item Value Reference Range Interpretation Comments NA (test code = 137 mmol/L 135-145 9093086168) K (test code = 4.4 mmol/L 3.5-5.0 4071429003) CL (test code = 105 mmol/L 98-108 7539643452) CO2 TOTAL (test code 27 mmol/L 23-31 = 6407169635) AGAP (test code = 5 2-16 8701755254) BUN (test code = 19 mg/dL 7-23 3657655953) GLUCOSE (test code = 92 mg/dL 70-110 2159373408) CREATININE (test code 0.96 mg/dL 0.60-1.25 = 0625258108) CALCIUM (test code = 8.7 mg/dL 8.6-10.6 7458982237) eGFR (test code = 80.2 mL/min/1.73m2 5010136129) DEWAYNE (test code = DEWAYNE) Association of [...] urine or abnormalities in imaging tests). [facility] METABOLIC PANEL (NA, K, CL, CO2, GLUCOSE, BUN, CREATININE, CA)2022-06-02 13:56:04 Test Item Value Reference Range Interpretation Comments NA (test code = 137 mmol/L 135-145 6379426549) K (test code = 4.4 mmol/L 3.5-5.0 1145662220) CL (test code = 105 mmol/L 98-108 2317866081) CO2 TOTAL (test code 27 mmol/L 23-31 = 5497339314) AGAP (test code = 5 2-16 1481838456) BUN (test code = 19 mg/dL 7-23 1878411182) GLUCOSE (test code = 92 mg/dL 70-110 5365968096) CREATININE (test code 0.96 mg/dL 0.60-1.25 = 2411265986) CALCIUM (test code = 8.7 mg/dL 8.6-10.6 3129987558) eGFR (test code = 80.2 mL/min/1.73m2 4056043618) DEWAYNE (test code = DEWAYNE) Association of [...] or urine or abnormalities in imaging tests). [facility] WITH [id number] 11:30:12 Test Item Value Reference Range Interpretation [...] RDW-SD (test code = 50.1 fL 38.5-51.6 68794-4) RDW-CV (test code = 15.8 % 12.1-15.4 H 788-0) PLT (test code = 239 See_Comment [Automated 777-3) message] The sy stem which generated this result transmitted reference range : 150 - 328 10*3/ ?L. The reference r mitra was not used to interpret this result as normal/abnormal . MPV (test code = 9.1 fL 9.8-13.0 L 17405-5) NRBC/100 WBC (test 0.8 See_Comment [Automat ed code = [id number]) message] The system which generated this result transmitted reference range : 0.0 - 10.0 /100 WBCs. The refer ence range was not u sed to interpret th is result as normal/abnormal . NRBC x10^3 (test code 0.07 See_Comment [Auto mated = [id number]) message] The s ystem which generated this result transmitted reference range : 10*3/?L. The reference range was not used to interpret this result as normal/abnormal . GRAN MAT (NEUT) % 56.4 % (test code = 770-8) IMM GRAN % (test code 6.70 % = [id number]) LYMPH % (test code = 23.9 % 736-9) MONO % (test code = 7.3 % 5905-5) EOS % (test code = 4.9 % 713-8) BASO % (test code = 0.8 % 706-2) GRAN MAT x10^3(ANC) 4.93 10*3/uL 1.99-6.95 (test code = 8224873747) IMM GRAN x10^3 (test 0.59 10*3/uL 0.00-0.06 H code = 1030921705) LYMPH x10^3 (test code 2.09 10*3/uL 1.09-3.23 = 731-0) MONO x10^3 (test code 0.64 10*3/uL 0.36-1.02 = 742-7) EOS x10^3 (test code = 0.43 10*3/uL 0.06-0.53 711-2) BASO x10^3 (test code 0.07 10*3/uL 0.01-0.09 = 704-7) Lab Interpretation Abnormal (test code = 21281-4) [facility] WITH [id number] 11:30:12 Test Item Value Reference Range Interpretation Comments WBC (test code = 8.75 See_Comment [Automated 0090-2) message] The sy stem which generated this result transmitted reference range : 4.20 - 10.70 10*3/?L. The reference range was not used to interpret this result as normal/abnormal . RBC (test code = 3.25 See_Comment L [Automated 319-8) message] The sy stem which generated this [...] RDW-SD (test code = 50.1 fL 38.5-51.6 64021-2) RDW-CV (test code = 15.8 % 12.1-15.4 H 788-0) PLT (test code = 239 See_Comment [Automated 777-3) message] The sy stem which generated this result transmitted reference range : 150 - 328 10*3/ ?L. The reference r mitra was not used to interpret this result as normal/abnormal . MPV (test code = 9.1 fL 9.8-13.0 L 35732-2) NRBC/100 WBC (test 0.8 See_Comment [Automat ed code = 3545918026) message] The system which generated this result transmitted reference range : 0.0 - 10.0 /100 WBCs. The refer ence range was not u sed to interpret th is result as normal/abnormal . NRBC x10^3 (test code 0.07 See_Comment [Auto mated = 7866748347) message] The s ystem which generated this result transmitted reference range : 10*3/?L. The reference range was not used to interpret this result as normal/abnormal . GRAN MAT (NEUT) % 56.4 % (test code = 770-8) IMM GRAN % (test code 6.70 % = 0894836261) LYMPH % (test code = 23.9 % 736-9) MONO % (test code = 7.3 % 5905-5) EOS % (test code = 4.9 % 713-8) BASO % (test code = 0.8 % 706-2) GRAN MAT x10^3(ANC) 4.93 10*3/uL 1.99-6.95 (test code = 5494876539) IMM GRAN x10^3 (test 0.59 10*3/uL 0.00-0.06 H code = 7977044729) LYMPH x10^3 (test code 2.09 10*3/uL 1.09-3.23 = 731-0) MONO x10^3 (test code 0.64 10*3/uL 0.36-1.02 = 742-7) EOS x10^3 (test code = 0.43 10*3/uL 0.06-0.53 711-2) BASO x10^3 (test code 0.07 10*3/uL 0.01-0.09 = 704-7) Lab Interpretation Abnormal (test code = 38700-7) [facility] Test Item Value Reference Range Interpretation Comments MAGNESIUM (test code = 0259715537) 2.3 mg/dL 1.7-2.4 Lab Interpretation (test code = Normal 47608-5) [facility]:48 Test Item Value Reference Range Interpretation Comments PHOSPHORUS (test code = 7866137410) 4.8 mg/dL 2.5-5.0 Lab Interpretation (test code = Normal 87818-5) [facility]:16:[facility] Test Item Value Reference Range Interpretation Comments MAGNESIUM (test code = 0915963448) 2.3 mg/dL 1.7-2.4 Lab Interpretation (test code = Normal 73323-4) [facility] 11:16:48 Test Item Value Reference Range Interpretation Comments PHOSPHORUS (test code = 1726206692) 4.8 mg/dL 2.5-5.0 Lab Interpretation (test code = Normal 88718-0) [facility] WITH [id number] 11:58:20 Test Item Value Reference Range Interpretation Comments WBC (test code = 9.20 See_Comment [Automated 5450-2) message] The sy stem which generated this result transmitted reference range : 4.20 - 10.70 10*3/?L. The reference range was not used to interpret this result as normal/abnormal . RBC (test code = 3.18 See_Comment L [Automated 421-8) message] The sy stem which generated this [...] RDW-SD (test code = 48.3 fL 38.5-51.6 61740-5) RDW-CV (test code = 15.2 % 12.1-15.4 788-0) PLT (test code = 181 See_Comment [Automated 777-3) message] The sy stem which generated this result transmitted reference range : 150 - 328 10*3/ ?L. The reference r mitra was not used to interpret this result as normal/abnormal . MPV (test code = 9.4 fL 9.8-13.0 L 18630-6) NRBC/100 WBC (test 0.3 See_Comment [Automat ed code = 6508575679) message] The system which generated this result transmitted reference range : 0.0 - 10.0 /100 WBCs. The refer ence range was not u sed to interpret th is result as normal/abnormal . NRBC x10^3 (test code 0.03 See_Comment [Auto mated = 2624536117) message] The s ystem which generated this result transmitted reference range : 10*3/?L. The reference range was not used to interpret this result as normal/abnormal . GRAN MAT (NEUT) % 59.7 % (test code = 770-8) IMM GRAN % (test code 5.80 % = 0848830864) LYMPH % (test code = 21.3 % 736-9) MONO % (test code = 8.7 % 5905-5) EOS % (test code = 4.1 % 713-8) BASO % (test code = 0.4 % 706-2) GRAN MAT x10^3(ANC) 5.49 10*3/uL 1.99-6.95 (test code = 4875500501) IMM GRAN x10^3 (test 0.53 10*3/uL 0.00-0.06 H code = 2895581771) LYMPH x10^3 (test code 1.96 10*3/uL 1.09-3.23 = 731-0) MONO x10^3 (test code 0.80 10*3/uL 0.36-1.02 = 742-7) EOS x10^3 (test code = 0.38 10*3/uL 0.06-0.53 711-2) BASO x10^3 (test code 0.04 10*3/uL 0.01-0.09 = 704-7) Lab Interpretation Abnormal (test code = 61792-2) [facility] WITH [id number] 11:58:20 Test Item Value Reference Range Interpretation Comments WBC (test code = 9.20 See_Comment [Automated 6690-2) message] The sy stem which generated this result transmitted reference range : 4.20 - 10.70 10*3/?L. The reference range was not used to interpret this result as normal/abnormal . RBC (test code = 3.18 See_Comment L [Automated 919-8) message] The sy [...] RDW-SD (test code = 48.3 fL 38.5-51.6 65538-9) RDW-CV (test code = 15.2 % 12.1-15.4 788-0) PLT (test code = 181 See_Comment [Automated 777-3) message] The sy stem which generated this result transmitted reference range : 150 - 328 10*3/ ?L. The reference r mitra was not used to interpret this result as normal/abnormal . MPV (test code = 9.4 fL 9.8-13.0 L 54817-7) NRBC/100 WBC (test 0.3 See_Comment [Automat ed code = 4806565654) message] The system which generated this result transmitted reference range : 0.0 - 10.0 /100 WBCs. The refer ence range was not u sed to interpret th is result as normal/abnormal . NRBC x10^3 (test code 0.03 See_Comment [Auto mated = 2276103921) message] The s ystem which generated this result transmitted reference range : 10*3/?L. The reference range was not used to interpret this result as normal/abnormal . GRAN MAT (NEUT) % 59.7 % (test code = 770-8) IMM GRAN % (test code 5.80 % = 9124545105) LYMPH % (test code = 21.3 % 736-9) MONO % (test code = 8.7 % 5905-5) EOS % (test code = 4.1 % 713-8) BASO % (test code = 0.4 % 706-2) GRAN MAT x10^3(ANC) 5.49 10*3/uL 1.99-6.95 (test code = 4444551576) IMM GRAN x10^3 (test 0.53 10*3/uL 0.00-0.06 H code = 1861779815) LYMPH x10^3 (test code 1.96 10*3/uL 1.09-3.23 = 731-0) MONO x10^3 (test code 0.80 10*3/uL 0.36-1.02 = 742-7) EOS x10^3 (test code = 0.38 10*3/uL 0.06-0.53 711-2) BASO x10^3 (test code 0.04 10*3/uL 0.01-0.09 = 704-7) Lab Interpretation Abnormal (test code = 64741-9) [facility] Test Item Value Reference Range Interpretation Comments MAGNESIUM (test code = 1087657208) 2.3 mg/dL 1.7-2.4 Lab Interpretation (test code = Normal 38748-0) [facility] 11:41:55 Test Item Value Reference Range Interpretation Comments PHOSPHORUS (test code = 6817505460) 3.4 mg/dL 2.5-5.0 Lab Interpretation (test code = Normal 70415-4) [facility] (NA, K, CL, CO2, GLUCOSE, BUN, CREATININE, CA)2022-06-01 11:41:55 Test Item Value Reference Range Interpretation Comments NA (test code = 137 mmol/L 135-145 7922540074) K (test code = 4.1 mmol/L 3.5-5.0 8889111316) CL (test code = 105 mmol/L 98-108 7720343030) CO2 TOTAL (test code = 27 mmol/L 23-31 2717820941) AGAP (test code = 5 2-16 4341675270) BUN (test code = 17 mg/dL 7-23 6016874373) GLUCOSE (test code = 135 mg/dL 70-110 H 4170484855) CREATININE (test code = 0.84 mg/dL 0.60-1.25 7075189325) CALCIUM (test code = 8.4 mg/dL 8.6-10.6 L 4335714707) eGFR (test code = 93.5 mL/min/1.73m2 4333384876) DEWAYNE (test code = DEWAYNE) Association of [...] tests). Lab Interpretation Abnormal (test code = 00685-9) [facility] 11:41:55 Test Item Value Reference Range Interpretation Comments MAGNESIUM (test code = 6460102955) 2.3 mg/dL 1.7-2.4 Lab Interpretation (test code = Normal 15225-8) [facility] 11:41:55 Test Item Value Reference Range Interpretation Comments PHOSPHORUS (test code = 3567142209) 3.4 mg/dL 2.5-5.0 Lab Interpretation (test code = Normal 12225-4) [facility] (NA, K, CL, CO2, GLUCOSE, BUN, CREATININE, CA)2022-06-01 11:41:55 Test Item Value Reference Range Interpretation Comments NA (test code = 137 mmol/L 135-145 8543385109) K (test code = 4.1 mmol/L 3.5-5.0 2206862802) CL (test code = 105 mmol/L 98-108 6547373150) CO2 TOTAL (test code = 27 mmol/L 23-31 7853318365) AGAP (test code = 5 2-16 5280844548) BUN (test code = 17 mg/dL 7-23 0458781167) GLUCOSE (test code = 135 mg/dL 70-110 H 4713377356) CREATININE (test code = 0.84 mg/dL 0.60-1.25 1745335963) CALCIUM (test code = 8.4 mg/dL 8.6-10.6 L 2868397848) eGFR (test code = 93.5 mL/min/1.73m2 0771987679) DEWAYNE (test code = DEWAYNE) Association of [...] tests). Lab Interpretation Abnormal (test code = 07766-9) [facility] WITH [id number] 12:02:32 Test Item Value Reference Range Interpretation Comments WBC (test code = 9.82 See_Comment [Automated 6115-2) message] The sy stem which generated this result transmitted reference range : 4.20 - 10.70 10*3/?L. The reference range was not used to interpret this result as normal/abnormal . RBC (test code = 3.82 See_Comment L [Automated 174-7) message] The sy stem which generated this [...] RDW-SD (test code = 46.6 fL 38.5-51.6 67194-8) RDW-CV (test code = 14.9 % 12.1-15.4 788-0) PLT (test code = 154 See_Comment [Automated 777-3) message] The sy stem which generated this result transmitted reference range : 150 - 328 10*3/ ?L. The reference r mitra was not used to interpret this result as normal/abnormal . MPV (test code = 9.5 fL 9.8-13.0 L 30140-3) NRBC/100 WBC (test 0.2 See_Comment [Automat ed code = 8601060388) message] The system which generated this result transmitted reference range : 0.0 - 10.0 /100 WBCs. The refer ence range was not u sed to interpret th is result as normal/abnormal . NRBC x10^3 (test code 0.02 See_Comment [Auto mated = 0966037916) message] The s ystem which generated this result transmitted reference range : 10*3/?L. The reference range was not used to interpret this result as normal/abnormal . GRAN MAT (NEUT) % 80.7 % (test code = 770-8) IMM GRAN % (test code 4.50 % = 9803501945) LYMPH % (test code = 6.5 % 736-9) MONO % (test code = 7.3 % 5905-5) EOS % (test code = 0.6 % 713-8) BASO % (test code = 0.4 % 706-2) GRAN MAT x10^3(ANC) 7.92 10*3/uL 1.99-6.95 H (test code = 0932739785) IMM GRAN x10^3 (test 0.44 10*3/uL 0.00-0.06 H code = 3090884682) LYMPH x10^3 (test code 0.64 10*3/uL 1.09-3.23 L = 731-0) MONO x10^3 (test code 0.72 10*3/uL 0.36-1.02 = 742-7) EOS x10^3 (test code = 0.06 10*3/uL 0.06-0.53 711-2) BASO x10^3 (test code 0.04 10*3/uL 0.01-0.09 = 704-7) MEAGHAN CELLS (test code 2+ See_Comment A [Auto mated = 6762-9) message] The sy stem which generated this result transmitted reference range : (none). The reference range was not used to interpret this result as normal/abnormal . REACT LYMPHS (test Rare code = 1036721722) Lab Interpretation Abnormal (test code = 06485-2) [facility] WITH [id number] 12:02:32 Test Item Value Reference Range Interpretation Comments WBC (test code = 9.82 See_Comment [Automated 2190-2) message] The sy stem which generated this result transmitted reference range : 4.20 - 10.70 10*3/?L. The reference range was not used to interpret this result as normal/abnormal . RBC (test code = 3.82 See_Comment L [Automated 403-8) message] The sy stem which generated this [...] RDW-SD (test code = 46.6 fL 38.5-51.6 51814-7) RDW-CV (test code = 14.9 % 12.1-15.4 788-0) PLT (test code = 154 See_Comment [Automated 777-3) message] The sy stem which generated this result transmitted reference range : 150 - 328 10*3/ ?L. The reference r mitra was not used to interpret this result as normal/abnormal . MPV (test code = 9.5 fL 9.8-13.0 L 63014-6) NRBC/100 WBC (test 0.2 See_Comment [Automat ed code = 1287507626) message] The system which generated this result transmitted reference range : 0.0 - 10.0 /100 WBCs. The refer ence range was not u sed to interpret th is result as normal/abnormal . NRBC x10^3 (test code 0.02 See_Comment [Auto mated = 4741250776) message] The s ystem which generated this result transmitted reference range : 10*3/?L. The reference range was not used to interpret this result as normal/abnormal . GRAN MAT (NEUT) % 80.7 % (test code = 770-8) IMM GRAN % (test code 4.50 % = 8299040618) LYMPH % (test code = 6.5 % 736-9) MONO % (test code = 7.3 % 5905-5) EOS % (test code = 0.6 % 713-8) BASO % (test code = 0.4 % 706-2) GRAN MAT x10^3(ANC) 7.92 10*3/uL 1.99-6.95 H (test code = 4488290508) IMM GRAN x10^3 (test 0.44 10*3/uL 0.00-0.06 H code = 5124884881) LYMPH x10^3 (test code 0.64 10*3/uL 1.09-3.23 L = 731-0) MONO x10^3 (test code 0.72 10*3/uL 0.36-1.02 = 742-7) EOS x10^3 (test code = 0.06 10*3/uL 0.06-0.53 711-2) BASO x10^3 (test code 0.04 10*3/uL 0.01-0.09 = 704-7) MEAGHAN CELLS (test code 2+ See_Comment A [Auto mated = 1390-9) message] The sy stem which generated this result transmitted reference range : (none). The reference range was not used to interpret this result as normal/abnormal . REACT LYMPHS (test Rare code = 4491380232) Lab Interpretation Abnormal (test code = 83436-1) [facility] WITH [id number] 12:02:32 Test Item Value Reference Range Interpretation [...] RDW-SD (test code = 46.6 fL 38.5-51.6 65448-8) RDW-CV (test code = 14.9 % 12.1-15.4 788-0) PLT (test code = 154 See_Comment [Automated 777-3) message] The sy stem which generated this result transmitted reference range : 150 - 328 10*3/ ?L. The reference r mitra was not used to interpret this result as normal/abnormal . MPV (test code = 9.5 fL 9.8-13.0 L 64327-7) NRBC/100 WBC (test 0.2 See_Comment [Automat ed code = 3016634744) message] The system which generated this result transmitted reference range : 0.0 - 10.0 /100 WBCs. The refer ence range was not u sed to interpret th is result as normal/abnormal . NRBC x10^3 (test code 0.02 See_Comment [Auto mated = 1536128065) message] The s ystem which generated this result transmitted reference range : 10*3/?L. The reference range was not used to interpret this result as normal/abnormal . GRAN MAT (NEUT) % 80.7 % (test code = 770-8) IMM GRAN % (test code 4.50 % = 7981883190) LYMPH % (test code = 6.5 % 736-9) MONO % (test code = 7.3 % 5905-5) EOS % (test code = 0.6 % 713-8) BASO % (test code = 0.4 % 706-2) GRAN MAT x10^3(ANC) 7.92 10*3/uL 1.99-6.95 H (test code = 1308617432) IMM GRAN x10^3 (test 0.44 10*3/uL 0.00-0.06 H code = 8791905974) LYMPH x10^3 (test code 0.64 10*3/uL 1.09-3.23 L = 731-0) MONO x10^3 (test code 0.72 10*3/uL 0.36-1.02 = 742-7) EOS x10^3 (test code = 0.06 10*3/uL 0.06-0.53 711-2) BASO x10^3 (test code 0.04 10*3/uL 0.01-0.09 = 704-7) MEAGHAN CELLS (test code 2+ See_Comment A [Auto mated = 7790-9) message] The sy stem which generated this result transmitted reference range : (none). The reference range was not used to interpret this result as normal/abnormal . REACT LYMPHS (test Rare code = 2887630575) Lab Interpretation Abnormal (test code = 05025-2) [facility] Test Item Value Reference Range Interpretation Comments MAGNESIUM (test code = 6086061729) 2.1 mg/dL 1.7-2.4 Lab Interpretation (test code = Normal 50335-4) [facility] 11:43:29 Test Item Value Reference Range Interpretation Comments PHOSPHORUS (test code = 7146456082) 3.7 mg/dL 2.5-5.0 Lab Interpretation (test code = Normal 20397-7) [facility] (NA, K, CL, CO2, GLUCOSE, BUN, CREATININE, CA)2022-05-31 11:43:29 Test Item Value Reference Range Interpretation Comments NA (test code = 133 mmol/L 135-145 L 8230966822) K (test code = 4.7 mmol/L 3.5-5.0 Slight 1552602094) hemolysis CL (test code = 104 mmol/L 98-108 0908129129) CO2 TOTAL (test code 25 mmol/L 23-31 = 8297365787) AGAP (test code = 4 2-16 1733599824) BUN (test code = 17 mg/dL 7-23 Slight 5836766033) hemolysis GLUCOSE (test code = 189 mg/dL 70-110 H 9015364957) CREATININE (test code 0.82 mg/dL 0.60-1.25 = 2330932136) CALCIUM (test code = 8.0 mg/dL 8.6-10.6 L 5097179006) eGFR (test code = 96.2 mL/min/1.73m2 2028215077) DEWAYNE (test code = DEWAYNE) Association of [...] tests). Lab Interpretation Abnormal (test code = 75267-2) [facility] 11:43:29 Test Item Value Reference Range Interpretation Comments MAGNESIUM (test code = 6618724607) 2.1 mg/dL 1.7-2.4 Lab Interpretation (test code = Normal 12000-5) [facility] 11:43:29 Test Item Value Reference Range Interpretation Comments PHOSPHORUS (test code = 0495040602) 3.7 mg/dL 2.5-5.0 Lab Interpretation (test code = Normal 56924-2) [facility] (NA, K, CL, CO2, GLUCOSE, BUN, CREATININE, CA)2022-05-31 11:43:29 Test Item Value Reference Range Interpretation Comments NA (test code = 133 mmol/L 135-145 L 1856484198) K (test code = 4.7 mmol/L 3.5-5.0 Slight 3851024616) hemolysis CL (test code = 104 mmol/L 98-108 7842612660) CO2 TOTAL (test code 25 mmol/L 23-31 = 9349044191) AGAP (test code = 4 2-16 5753825948) BUN (test code = 17 mg/dL 7-23 Slight 1005608143) hemolysis GLUCOSE (test code = 189 mg/dL 70-110 H 3612726749) CREATININE (test code 0.82 mg/dL 0.60-1.25 = 1802988381) CALCIUM (test code = 8.0 mg/dL 8.6-10.6 L 2240176008) eGFR (test code = 96.2 mL/min/1.73m2 7773642707) DEWAYNE (test code = DEWAYNE) Association of [...] tests). Lab Interpretation Abnormal (test code = 23600-8) [facility] 11:43:29 Test Item Value Reference Range Interpretation Comments MAGNESIUM (test code = 5304783234) 2.1 mg/dL 1.7-2.4 Lab Interpretation (test code = Normal 70209-8) [facility] 11:43:29 Test Item Value Reference Range Interpretation Comments PHOSPHORUS (test code = 1147496275) 3.7 mg/dL 2.5-5.0 Lab Interpretation (test code = Normal 69721-2) [facility] (NA, K, CL, CO2, GLUCOSE, BUN, CREATININE, CA)2022-05-31 11:43:29 Test Item Value Reference Range Interpretation Comments NA (test code = 133 mmol/L 135-145 L 0895623095) K (test code = 4.7 mmol/L 3.5-5.0 Slight 8041156754) hemolysis CL (test code = 104 mmol/L 98-108 6361981717) CO2 TOTAL (test code 25 mmol/L 23-31 = 6817128827) AGAP (test code = 4 2-16 1309062703) BUN (test code = 17 mg/dL 7-23 Slight 5284841047) hemolysis GLUCOSE (test code = 189 mg/dL 70-110 H 6902763547) CREATININE (test code 0.82 mg/dL 0.60-1.25 = 0624848114) CALCIUM (test code = 8.0 mg/dL 8.6-10.6 L 7059218583) eGFR (test code = 96.2 mL/min/1.73m2 3178728868) DEWAYNE (test code = DEWAYNE) Association of [...] tests). Lab Interpretation Abnormal (test code = 74428-4) [facility] 11:30:44 Test Item Value Reference Range Interpretation Comments Fibrinogen (test code = 4046371092) 218 mg/dL 167-453 Lab Interpretation (test code = Normal 19847-4) [facility] 11:30:44 Test Item Value Reference Range Interpretation Comments Fibrinogen (test code = 0795285182) 218 mg/dL 167-453 Lab Interpretation (test code = Normal 32963-7) [facility] 11:30:44 Test Item Value Reference Range Interpretation Comments Fibrinogen (test code = 4332494138) 218 mg/dL 167-453 Lab Interpretation (test code = Normal 69243-6) [facility] / [id number] 11:29:02 Test Item Value Reference Range Interpretation Comments PROTIME PATIENT (test 12.7 See_Comment H [Auto mated message] code = 5964-2) The system [employer] generated this result transmitted ref erence range: 10.1 - 1 2.6 Seconds. The reference range was not used to int erpret this result as normal/abnormal . INR (test code = 6301-6) 1.1 Nor mal INR <1.1; Warfarin Therap eutic range 2.0 to 3. 0 or 2.5 to 3.5, dep ending upon the indica tions. Lab Interpretation (test Abnormal code = 58466-0) [facility] 11:29:02 Test Item Value Reference Range Interpretation Comments APTT Patient (test code 82 See_Comment H [Au tomated message] = 3173-2) The system [employer] generated this result transmitted ref erence range: 26 - 36 Seconds. The reference range was not used to int erpret this result as normal/abnormal . Lab Interpretation (test Abnormal code = 76192-4) [facility] / [id number] 11:29:02 Test Item Value Reference Range Interpretation Comments PROTIME PATIENT (test 12.7 See_Comment H [Auto mated message] code = 5964-2) The system [employer] generated this result transmitted ref erence range: 10.1 - 1 2.6 Seconds. The reference range was not used to int erpret this result as normal/abnormal . INR (test code = 6301-6) 1.1 Nor mal INR <1.1; Warfarin Therap eutic range 2.0 to 3. 0 or 2.5 to 3.5, dep ending upon the indica tions. Lab Interpretation (test Abnormal code = 02645-6) [facility] 11:29:02 Test Item Value Reference Range Interpretation Comments APTT Patient (test code 82 See_Comment H [Au tomated message] = 3173-2) The system [employer] generated this result transmitted ref erence range: 26 - 36 Seconds. The reference range was not used to int erpret this result as normal/abnormal . Lab Interpretation (test Abnormal code = 14756-4) [facility] / [id number] 11:29:02 Test Item Value Reference Range Interpretation Comments PROTIME PATIENT (test 12.7 See_Comment H [Auto mated message] code = 5964-2) The system [employer] generated this result transmitted ref erence range: 10.1 - 1 2.6 Seconds. The reference range was not used to int erpret this result as normal/abnormal . INR (test code = 6301-6) 1.1 Nor mal INR <1.1; Warfarin Therap eutic range 2.0 to 3. 0 or 2.5 to 3.5, dep ending upon the indica tions. Lab Interpretation (test Abnormal code = 61391-3) [facility] 11:29:02 Test Item Value Reference Range Interpretation Comments APTT Patient (test code 82 See_Comment H [Au tomated message] = 3173-2) The system [employer] generated this result transmitted ref erence range: 26 - 36 Seconds. The reference range was not used to int erpret this result as normal/abnormal . Lab Interpretation (test Abnormal code = 62669-7) [facility]:12[facility]17 Test Item Value Reference Range Interpretation Comments Fibrinogen (test code = 3925205205) 124 mg/dL 167-453 L Lab Interpretation (test code = Abnormal 96265-3) [facility]2023-04-18 02:12:17 Test Item Value Reference Range Interpretation Comments Fibrinogen (test code = 7576372700) 124 mg/dL 167-453 L Lab Interpretation (test code = Abnormal 93373-4) [facility]2023-04-18 02:12:17 Test Item Value Reference Range Interpretation Comments Fibrinogen (test code = 8077710212) 124 mg/dL 167-453 L Lab Interpretation (test code = Abnormal 28887-7) [facility]2023-04-17 22:27:11 Test Item Value Reference Range Interpretation Comments Fibrinogen (test code = 4798777159) 108 mg/dL 167-453 L Lab Interpretation (test code = Abnormal 74350-2) [facility]2023-04-17 22:27:11 Test Item Value Reference Range Interpretation Comments Fibrinogen (test code = 4968294288) 108 mg/dL 167-453 L Lab Interpretation (test code = Abnormal 85357-3) [facility]2023-04-17 22:27:11 Test Item Value Reference Range Interpretation Comments Fibrinogen (test code = 5187897603) 108 mg/dL 167-453 L Lab Interpretation (test code = Abnormal 44604-1) [facility]2023-04-17 18:54:36 Test Item Value Reference Range Interpretation Comments Fibrinogen (test code = 9068608293) 110 mg/dL 167-453 L Lab Interpretation (test code = Abnormal 80123-1) [facility]2023-04-17 18:54:36 Test Item Value Reference Range Interpretation Comments Fibrinogen (test code = 1470708036) 110 mg/dL 167-453 L Lab Interpretation (test code = Abnormal 77051-8) [facility]2023-04-17 18:54:36 Test Item Value Reference Range Interpretation Comments Fibrinogen (test code = 5509853213) 110 mg/dL 167-453 L Lab Interpretation (test code = Abnormal 12606-9) [facility]2023-04-17 18:54:36 Test Item Value Reference Range Interpretation Comments Fibrinogen (test code = 9360742499) 110 mg/dL 167-453 L Lab Interpretation (test code = Abnormal 17687-9[facility]:43 Test Item Value Reference Range Interpretation Comments Fibrinogen (test code = 6027171511) 118 mg/dL 167-453 L Lab Interpretation (test code = Abnormal 25316-4) [facility]2023-04-17 15:54:43 Test Item Value Reference Range Interpretation Comments Fibrinogen (test code = 7227175366) 118 mg/dL 167-453 L Lab Interpretation (test code = Abnormal 58243-4) [facility]2023-04-17 15:54:43 Test Item Value Reference Range Interpretation Comments Fibrinogen (test code = 0461116839) 118 mg/dL 167-453 L Lab Interpretation (test code = Abnormal 48901-3) [facility]2023-04-17 15:54:43 Test Item Value Reference Range Interpretation Comments Fibrinogen (test code = 5356373850) 118 mg/dL 167-453 L Lab Interpretation (test code = Abnormal 07115-8) [facility]2023-04-17 13:43:27 Test Item Value Reference Range Interpretation Comments Fibrinogen (test code = 8845362861) 119 mg/dL 167-453 L Lab Interpretation (test code = Abnormal 07693-4) [facility]2023-04-17 13:43:27 Test Item Value Reference Range Interpretation Comments Fibrinogen (test code = 1286114365) 119 mg/dL 167-453 L Lab Interpretation (test code = Abnormal 81904-9) [facility]2023-04-17 13:43:27 Test Item Value Reference Range Interpretation Comments Fibrinogen (test code = 2102134957) 119 mg/dL 167-453 L Lab Interpretation (test code = Abnormal 58196-3) [facility]2023-04-17 13:43:27 Test Item Value Reference Range Interpretation Comments Fibrinogen (test code = 5822848921) 119 mg/dL 167-453 L Lab Interpretation (test code = Abnormal 27130-1) [facility]2023-04-17 11:50:10 Test Item Value Reference Range Interpretation Comments Fibrinogen (test code = 5662056069) 97 mg/dL 167-453 LL Lab Interpretation (test code = Abnormal 98029-4) [facility]10 Test Item Value Reference Range Interpretation Comments Fibrinogen (test code = 8629393149) 97 mg/dL 167-453 LL Lab Interpretation (test code = Abnormal 83356-6) [facility] 11:50:10 Test Item Value Reference Range Interpretation Comments Fibrinogen (test code = 1193797890) 97 mg/dL 167-453 LL Lab Interpretation (test code = Abnormal 13087-3) [facility] 11:50:10 Test Item Value Reference Range Interpretation Comments Fibrinogen (test code = 1459429393) 97 mg/dL 167-453 LL Lab Interpretation (test code = Abnormal 60108-6) [facility] WITH [id number] 10:13:04 Test Item Value Reference Range Interpretation [...] RDW-SD (test code = 45.3 fL 38.5-51.6 70640-5) RDW-CV (test code = 14.5 % 12.1-15.4 788-0) PLT (test code = 174 See_Comment [Automated 777-3) message] The sy stem which generated this result transmitted reference range : 150 - 328 10*3/ ?L. The reference r mitra was not used to interpret this result as normal/abnormal . MPV (test code = 8.9 fL 9.8-13.0 L 41931-0) NRBC/100 WBC (test 0.3 See_Comment [Automat ed code = 0359402690) message] The system which generated this result transmitted reference range : 0.0 - 10.0 /100 WBCs. The refer ence range was not u sed to interpret th is result as normal/abnormal . NRBC x10^3 (test code 0.03 See_Comment [Auto mated = 9210067574) message] The s ystem which generated this result transmitted reference range : 10*3/?L. The reference range was not used to interpret this result as normal/abnormal . GRAN MAT (NEUT) % 63.0 % (test code = 770-8) IMM GRAN % (test code 3.60 % = 3253834302) LYMPH % (test code = 17.5 % 736-9) MONO % (test code = 10.8 % 5905-5) EOS % (test code = 4.5 % 713-8) BASO % (test code = 0.6 % 706-2) GRAN MAT x10^3(ANC) 5.89 10*3/uL 1.99-6.95 (test code = 4857135831) IMM GRAN x10^3 (test 0.34 10*3/uL 0.00-0.06 H code = 9466909116) LYMPH x10^3 (test code 1.64 10*3/uL 1.09-3.23 = 731-0) MONO x10^3 (test code 1.01 10*3/uL 0.36-1.02 = 742-7) EOS x10^3 (test code = 0.42 10*3/uL 0.06-0.53 711-2) BASO x10^3 (test code 0.06 10*3/uL 0.01-0.09 = 704-7) REACT LYMPHS (test Rare code = 8772944580) Lab Interpretation Abnormal (test code = 25943-4) [facility] WITH [id number] 10:13:04 Test Item Value Reference Range Interpretation [...] RDW-SD (test code = 45.3 fL 38.5-51.6 98697-0) RDW-CV (test code = 14.5 % 12.1-15.4 788-0) PLT (test code = 174 See_Comment [Automated 777-3) message] The sy stem which generated this result transmitted reference range : 150 - 328 10*3/ ?L. The reference r mitra was not used to interpret this result as normal/abnormal . MPV (test code = 8.9 fL 9.8-13.0 L 67839-2) NRBC/100 WBC (test 0.3 See_Comment [Automat ed code = 6479991810) message] The system which generated this result transmitted reference range : 0.0 - 10.0 /100 WBCs. The refer ence range was not u sed to interpret th is result as normal/abnormal . NRBC x10^3 (test code 0.03 See_Comment [Auto mated = 3584013253) message] The s ystem which generated this result transmitted reference range : 10*3/?L. The reference range was not used to interpret this result as normal/abnormal . GRAN MAT (NEUT) % 63.0 % (test code = 770-8) IMM GRAN % (test code 3.60 % = 0259241187) LYMPH % (test code = 17.5 % 736-9) MONO % (test code = 10.8 % 5905-5) EOS % (test code = 4.5 % 713-8) BASO % (test code = 0.6 % 706-2) GRAN MAT x10^3(ANC) 5.89 10*3/uL 1.99-6.95 (test code = 2187854344) IMM GRAN x10^3 (test 0.34 10*3/uL 0.00-0.06 H code = 2027113201) LYMPH x10^3 (test code 1.64 10*3/uL 1.09-3.23 = 731-0) MONO x10^3 (test code 1.01 10*3/uL 0.36-1.02 = 742-7) EOS x10^3 (test code = 0.42 10*3/uL 0.06-0.53 711-2) BASO x10^3 (test code 0.06 10*3/uL 0.01-0.09 = 704-7) REACT LYMPHS (test Rare code = 7160310707) Lab Interpretation Abnormal (test code = 52287-9) [facility] WITH [id number] 10:13:04 Test Item Value Reference Range Interpretation Comments WBC (test code = 9.36 See_Comment [Automated 4790-2) message] The sy stem which generated this result transmitted reference range : 4.20 - 10.70 10*3/?L. The reference range was not used to interpret this result as normal/abnormal . RBC (test code = 4.03 See_Comment L [Automated 086-8) message] The sy stem which generated this [...] RDW-SD (test code = 45.3 fL 38.5-51.6 39778-5) RDW-CV (test code = 14.5 % 12.1-15.4 788-0) PLT (test code = 174 See_Comment [Automated 777-3) message] The sy stem which generated this result transmitted reference range : 150 - 328 10*3/ ?L. The reference r mitra was not used to interpret this result as normal/abnormal . MPV (test code = 8.9 fL 9.8-13.0 L 03477-0) NRBC/100 WBC (test 0.3 See_Comment [Automat ed code = 1302735852) message] The system which generated this result transmitted reference range : 0.0 - 10.0 /100 WBCs. The refer ence range was not u sed to interpret th is result as normal/abnormal . NRBC x10^3 (test code 0.03 See_Comment [Auto mated = 1688554202) message] The s ystem which generated this result transmitted reference range : 10*3/?L. The reference range was not used to interpret this result as normal/abnormal . GRAN MAT (NEUT) % 63.0 % (test code = 770-8) IMM GRAN % (test code 3.60 % = 2424799742) LYMPH % (test code = 17.5 % 736-9) MONO % (test code = 10.8 % 5905-5) EOS % (test code = 4.5 % 713-8) BASO % (test code = 0.6 % 706-2) GRAN MAT x10^3(ANC) 5.89 10*3/uL 1.99-6.95 (test code = 6467757099) IMM GRAN x10^3 (test 0.34 10*3/uL 0.00-0.06 H code = 9008417038) LYMPH x10^3 (test code 1.64 10*3/uL 1.09-3.23 = 731-0) MONO x10^3 (test code 1.01 10*3/uL 0.36-1.02 = 742-7) EOS x10^3 (test code = 0.42 10*3/uL 0.06-0.53 711-2) BASO x10^3 (test code 0.06 10*3/uL 0.01-0.09 = 704-7) REACT LYMPHS (test Rare code = 2458703701) Lab Interpretation Abnormal (test code = 23479-1) [facility] WITH [id number] 10:13:04 Test Item Value Reference Range Interpretation Comments WBC (test code = 9.36 See_Comment [Automated 1790-2) message] The sy stem which generated this result transmitted reference range : 4.20 - 10.70 10*3/?L. The reference range was not used to interpret this result as normal/abnormal . RBC (test code = 4.03 See_Comment L [Automated 919-8) message] The sy [...] RDW-SD (test code = 45.3 fL 38.5-51.6 67096-3) RDW-CV (test code = 14.5 % 12.1-15.4 788-0) PLT (test code = 174 See_Comment [Automated 777-3) message] The sy stem which generated this result transmitted reference range : 150 - 328 10*3/ ?L. The reference r mitra was not used to interpret this result as normal/abnormal . MPV (test code = 8.9 fL 9.8-13.0 L 85730-6) NRBC/100 WBC (test 0.3 See_Comment [Automat ed code = 6939691671) message] The system which generated this result transmitted reference range : 0.0 - 10.0 /100 WBCs. The refer ence range was not u sed to interpret th is result as normal/abnormal . NRBC x10^3 (test code 0.03 See_Comment [Auto mated = 1821355158) message] The s ystem which generated this result transmitted reference range : 10*3/?L. The reference range was not used to interpret this result as normal/abnormal . GRAN MAT (NEUT) % 63.0 % (test code = 770-8) IMM GRAN % (test code 3.60 % = 9901789836) LYMPH % (test code = 17.5 % 736-9) MONO % (test code = 10.8 % 5905-5) EOS % (test code = 4.5 % 713-8) BASO % (test code = 0.6 % 706-2) GRAN MAT x10^3(ANC) 5.89 10*3/uL 1.99-6.95 (test code = 7130725699) IMM GRAN x10^3 (test 0.34 10*3/uL 0.00-0.06 H code = 7897260195) LYMPH x10^3 (test code 1.64 10*3/uL 1.09-3.23 = 731-0) MONO x10^3 (test code 1.01 10*3/uL 0.36-1.02 = 742-7) EOS x10^3 (test code = 0.42 10*3/uL 0.06-0.53 711-2) BASO x10^3 (test code 0.06 10*3/uL 0.01-0.09 = 704-7) REACT LYMPHS (test Rare code = 7375036886) Lab Interpretation Abnormal (test code = 79666-8) [facility] 10:10:03 Test Item Value Reference Range Interpretation Comments PHOSPHORUS (test code = 2587217109) 4.2 mg/dL 2.5-5.0 Lab Interpretation (test code = Normal 54602-9) [facility] 10:10:03 Test Item Value Reference Range Interpretation Comments MAGNESIUM (test code = 6774764658) 2.0 mg/dL 1.7-2.4 Lab Interpretation (test code = Normal 44439-2) [facility] (NA, K, CL, CO2, GLUCOSE, BUN, CREATININE, CA)2022-05-30 10:10:03 Test Item Value Reference Range Interpretation Comments NA (test code = 133 mmol/L 135-145 L 8991382936) K (test code = 3.9 mmol/L 3.5-5.0 6193506058) CL (test code = 103 mmol/L 98-108 3478193332) CO2 TOTAL (test code = 25 mmol/L 23-31 5747150278) AGAP (test code = 5 2-16 9619763615) BUN (test code = 22 mg/dL 7-23 2970042896) GLUCOSE (test code = 128 mg/dL 70-110 H 3153244783) CREATININE (test code = 0.87 mg/dL 0.60-1.25 7398745323) CALCIUM (test code = 8.2 mg/dL 8.6-10.6 L 0602230437) eGFR (test code = 89.8 mL/min/1.73m2 7672299991) DEWAYNE (test code = DEWAYNE) Association of [...] tests). Lab Interpretation Abnormal (test code = 74431-6) [facility] 10:10:03 Test Item Value Reference Range Interpretation Comments PHOSPHORUS (test code = 4060102626) 4.2 mg/dL 2.5-5.0 Lab Interpretation (test code = Normal 35810-2) [facility] 10:10:03 Test Item Value Reference Range Interpretation Comments MAGNESIUM (test code = 7701198906) 2.0 mg/dL 1.7-2.4 Lab Interpretation (test code = Normal 24090-8) [facility] (NA, K, CL, CO2, GLUCOSE, BUN, CREATININE, CA)2022-05-30 10:10:03 Test Item Value Reference Range Interpretation Comments NA (test code = 133 mmol/L 135-145 L 6302362473) K (test code = 3.9 mmol/L 3.5-5.0 1920306462) CL (test code = 103 mmol/L 98-108 3364148945) CO2 TOTAL (test code = 25 mmol/L 23-31 9240051449) AGAP (test code = 5 2-16 9553295666) BUN (test code = 22 mg/dL 7-23 8945563744) GLUCOSE (test code = 128 mg/dL 70-110 H 4318402391) CREATININE (test code = 0.87 mg/dL 0.60-1.25 8033842356) CALCIUM (test code = 8.2 mg/dL 8.6-10.6 L 2420656584) eGFR (test code = 89.8 mL/min/1.73m2 9405280497) DEWAYNE (test code = DEWAYNE) Association of [...] tests). Lab Interpretation Abnormal (test code = 15103-7) [facility] 10:10:03 Test Item Value Reference Range Interpretation Comments PHOSPHORUS (test code = 2490684835) 4.2 mg/dL 2.5-5.0 Lab Interpretation (test code = Normal 81225-9) [facility] 10:10:03 Test Item Value Reference Range Interpretation Comments MAGNESIUM (test code = 6790714912) 2.0 mg/dL 1.7-2.4 Lab Interpretation (test code = Normal 15037-8) [facility] (NA, K, CL, CO2, GLUCOSE, BUN, CREATININE, CA)2022-05-30 10:10:03 Test Item Value Reference Range Interpretation Comments NA (test code = 133 mmol/L 135-145 L 5067652596) K (test code = 3.9 mmol/L 3.5-5.0 0971008209) CL (test code = 103 mmol/L 98-108 3171930707) CO2 TOTAL (test code = 25 mmol/L 23-31 7028553857) AGAP (test code = 5 2-16 7115747329) BUN (test code = 22 mg/dL 7-23 5417002965) GLUCOSE (test code = 128 mg/dL 70-110 H 3055594561) CREATININE (test code = 0.87 mg/dL 0.60-1.25 6300360132) CALCIUM (test code = 8.2 mg/dL 8.6-10.6 L 6221430182) eGFR (test code = 89.8 mL/min/1.73m2 8005262458) DEWAYNE (test code = DEWAYNE) Association of [...] tests). Lab Interpretation Abnormal (test code = 91815-6) [facility] 10:10:03 Test Item Value Reference Range Interpretation Comments PHOSPHORUS (test code = 6205120263) 4.2 mg/dL 2.5-5.0 Lab Interpretation (test code = Normal 34557-2) [facility] 10:10:03 Test Item Value Reference Range Interpretation Comments MAGNESIUM (test code = 6872474949) 2.0 mg/dL 1.7-2.4 Lab Interpretation (test code = Normal 71677-0) [facility] METABOLIC PANEL (NA, K, CL, CO2, GLUCOSE, BUN, CREATININE, CA)2022-05-30 10:10:03 Test Item Value Reference Range Interpretation Comments NA (test code = 133 mmol/L 135-145 L 1120862415) K (test code = 3.9 mmol/L 3.5-5.0 7152099793) CL (test code = 103 mmol/L 98-108 1839808340) CO2 TOTAL (test code = 25 mmol/L 23-31 9523213929) AGAP (test code = 5 2-16 5806644090) BUN (test code = 22 mg/dL 7-23 6185760682) GLUCOSE (test code = 128 mg/dL 70-110 H 3145135704) CREATININE (test code = 0.87 mg/dL 0.60-1.25 0701559345) CALCIUM (test code = 8.2 mg/dL 8.6-10.6 L 4913901840) eGFR (test code = 89.8 mL/min/1.73m2 4372554591) DEWAYNE (test code = DEWAYNE) Association of [...] tests). Lab Interpretation Abnormal (test code = 47201-0) [facility]2023-04-17 09:52:38 Test Item Value Reference Range Interpretation Comments Fibrinogen (test code = 4599152761) 86 mg/dL 167-453 LL Lab Interpretation (test code = Abnormal 44028-4) [facility] Test Item Value Reference Range Interpretation Comments Fibrinogen (test code = 5287307785) 86 mg/dL 167-453 LL Lab Interpretation (test code = Abnormal 70295-9) [facility]2023-04-17 09:52:38 Test Item Value Reference Range Interpretation Comments Fibrinogen (test code = 1167063676) 86 mg/dL 167-453 LL Lab Interpretation (test code = Abnormal 03079-8) [facility]2023-04-17 09:52:38 Test Item Value Reference Range Interpretation Comments Fibrinogen (test code = 0638024689) 86 mg/dL 167-453 LL Lab Interpretation (test code = Abnormal 61484-4) [place] 48806023-04-17 09:51:57 Test Item Value Reference Range Interpretation Comments APTT Patient (test code 44 See_Comment H [Au tomated message] = 3173-2) The system [employer] generated this result transmitted ref erence range: 26 - 36 Seconds. The reference range was not used to int erpret this result as normal/abnormal . Lab Interpretation (test Abnormal code = 53405-5) [place] 48806023-04-17 09:51:57 Test Item Value Reference Range Interpretation Comments APTT Patient (test code 44 See_Comment H [Au tomated message] = 3173-2) The system [employer] generated this result transmitted ref erence range: 26 - 36 Seconds. The reference range was not used to int erpret this result as normal/abnormal . Lab Interpretation (test Abnormal code = 12952-0) [place] 98[address]-04-17 09:51:57 Test Item Value Reference Range Interpretation Comments APTT Patient (test code 44 See_Comment H [Au tomated message] = 3173-2) The system [employer] generated this result transmitted ref erence range: 26 - 36 Seconds. The reference range was not used to int erpret this result as normal/abnormal . Lab Interpretation (test Abnormal code = 71859-2) [place] 98[address]-04-17 09:51:57 Test Item Value Reference Range Interpretation Comments APTT Patient (test code 44 See_Comment H [Au tomated message] = 3173-2) The system [employer] generated this result transmitted ref erence range: 26 - 36 Seconds. The reference range was not used to int erpret this result as normal/abnormal . Lab Interpretation (test Abnormal code = 09637-6) [place] 426123-04-17 07:28:55 Test Item Value Reference Range Interpretation Comments Fibrinogen (test code = 9995952046) 73 mg/dL 167-453 LL Lab Interpretation (test code = Abnormal 55922-5) [facility] Test Item Value Reference Range Interpretation Comments Fibrinogen (test code = 8269617237) 73 mg/dL 167-453 LL Lab Interpretation (test code = Abnormal 20287-1) [place] [address]-04-17 07:28:55 Test Item Value Reference Range Interpretation Comments Fibrinogen (test code = 0501077448) 73 mg/dL 167-453 LL Lab Interpretation (test code = Abnormal 45974-3) [place] [address]-04-17 07:28:55 Test Item Value Reference Range Interpretation Comments Fibrinogen (test code = 0008302592) 73 mg/dL 167-453 LL Lab Interpretation (test code = Abnormal 59149-4) [facility] (for use with Heparin Drip)2022-05-30 06:39:14 Test Item Value Reference Range Interpretation Comments APTT Patient (test code 44 See_Comment H [Au tomated message] = 3173-2) The system [employer] generated this result transmitted ref erence range: 26 - 36 Seconds. The reference range was not used to int erpret this result as normal/abnormal . Lab Interpretation (test Abnormal code = 52739-6) [facility] (for use with Heparin Drip)2022-05-30 06:39:14 Test Item Value Reference Range Interpretation Comments APTT Patient (test code 44 See_Comment H [Au tomated message] = 3173-2) The system [employer] generated this result transmitted ref erence range: 26 - 36 Seconds. The reference range was not used to int erpret this result as normal/abnormal . Lab Interpretation (test Abnormal code = 88015-3) [facility] (for use with Heparin Drip)2022-05-30 06:39:14 Test Item Value Reference Range Interpretation Comments APTT Patient (test code 44 See_Comment H [Au tomated message] = 3173-2) The system [employer] generated this result transmitted ref erence range: 26 - 36 Seconds. The reference range was not used to int erpret this result as normal/abnormal . Lab Interpretation (test Abnormal code = 29249-7) [facility] (for use with Heparin Drip)2022-05-30 06:39:14 Test Item Value Reference Range Interpretation Comments APTT Patient (test code 44 See_Comment H [Au tomated message] = 3173-2) The system [employer] generated this result transmitted ref erence range: 26 - 36 Seconds. The reference range was not used to int erpret this result as normal/abnormal . Lab Interpretation (test Abnormal code = 04478-6) [facility] 05:26:04 Test Item Value Reference Range Interpretation Comments Fibrinogen (test code = 9550345009) 71 mg/dL 167-453 LL Lab Interpretation (test code = Abnormal 48901-9) [facility]2023-04-17 05:26:04 Test Item Value Reference Range Interpretation Comments Fibrinogen (test code = 4856944587) 71 mg/dL 167-453 LL Lab Interpretation (test code = Abnormal 55955-6) [facility]2023-04-17 05:26:04 Test Item Value Reference Range Interpretation Comments Fibrinogen (test code = 8147691969) 71 mg/dL 167-453 LL Lab Interpretation (test code = Abnormal 97532-0) [facility]2023-04-17 05:26:04 Test Item Value Reference Range Interpretation Comments Fibrinogen (test code = 0358076083) 71 mg/dL 167-453 LL Lab Interpretation (test code = Abnormal 22673-6) [facility]2023-04-16 23:49:05 Test Item Value Reference Range Interpretation Comments Fibrinogen (test code = 4471097851) 98 mg/dL 167-453 LL Lab Interpretation (test code = Abnormal 26192-2) [facility]2023-04-16 23:49:05 Test Item Value Reference Range Interpretation Comments Fibrinogen (test code = 5464731360) 98 mg/dL 167-453 LL Lab Interpretation (test code = Abnormal 91959-1) [facility]2023-04-16 23:49:05 Test Item Value Reference Range Interpretation Comments Fibrinogen (test code = 0821935850) 98 mg/dL 167-453 LL Lab Interpretation (test code = Abnormal 92292-7) [facility]2023-04-16 23:49:05 Test Item Value Reference Range Interpretation Comments Fibrinogen (test code = 6227453577) 98 mg/dL 167-453 LL Lab Interpretation (test code = Abnormal 54796-6) [facility]2023-04-16 21:48:37 Test Item Value Reference Range Interpretation Comments Fibrinogen (test code = 7718530244) 113 mg/dL 167-453 L Lab Interpretation (test code = Abnormal 28609-7) [facility]2023-04-16 21:48:37 Test Item Value Reference Range Interpretation Comments Fibrinogen (test code = 5040568267) 113 mg/dL 167-453 L Lab Interpretation (test code = Abnormal 32912-2) [facility] 21:48:37 Test Item Value Reference Range Interpretation Comments Fibrinogen (test code = 0374700539) 113 mg/dL 167-453 L Lab Interpretation (test code = Abnormal 97318-0) [facility]2023-04-16 21:48:37 Test Item Value Reference Range Interpretation Comments Fibrinogen (test code = 0078208056) 113 mg/dL 167-453 L Lab Interpretation (test code = Abnormal 69151-4) [facility] METABOLIC PANEL (NA, K, CL, CO2, GLUCOSE, BUN, CREATININE, CA)2022-05-29 15:33:06 Test Item Value Reference Range Interpretation Comments NA (test code = 139 mmol/L 135-145 7015653276) K (test code = 4.2 mmol/L 3.5-5.0 2282287379) CL (test code = 104 mmol/L 98-108 4226115176) CO2 TOTAL (test code = 29 mmol/L 23-31 8792491111) AGAP (test code = 6 2-16 9266371749) BUN (test code = 25 mg/dL 7-23 H 0884896374) GLUCOSE (test code = 85 mg/dL 70-110 7942967161) CREATININE (test code = 1.02 mg/dL 0.60-1.25 5121475591) CALCIUM (test code = 8.7 mg/dL 8.6-10.6 1930213005) eGFR (test code = 74.8 mL/min/1.73m2 6730719730) DEWAYNE (test code = DEWAYNE) Association of [...] tests). Lab Interpretation Abnormal (test code = 35316-8) [facility] METABOLIC PANEL (NA, K, CL, CO2, GLUCOSE, BUN, CREATININE, CA)2022-05-29 15:33:06 Test Item Value Reference Range Interpretation Comments NA (test code = 139 mmol/L 135-145 6204428061) K (test code = 4.2 mmol/L 3.5-5.0 4361236202) CL (test code = 104 mmol/L 98-108 5721652304) CO2 TOTAL (test code = 29 mmol/L 23-31 7934377642) AGAP (test code = 6 2-16 3797871668) BUN (test code = 25 mg/dL 7-23 H 1840133409) GLUCOSE (test code = 85 mg/dL 70-110 0627395559) CREATININE (test code = 1.02 mg/dL 0.60-1.25 9353433205) CALCIUM (test code = 8.7 mg/dL 8.6-10.6 1315799437) eGFR (test code = 74.8 mL/min/1.73m2 7320172231) DEWAYNE (test code = DEWAYNE) Association of [...] tests). Lab Interpretation Abnormal (test code = 28554-3) [facility] (NA, K, CL, CO2, GLUCOSE, BUN, CREATININE, CA)2022-05-29 15:33:06 Test Item Value Reference Range Interpretation Comments NA (test code = 139 mmol/L 135-145 0606241450) K (test code = 4.2 mmol/L 3.5-5.0 6659185569) CL (test code = 104 mmol/L 98-108 2663645447) CO2 TOTAL (test code = 29 mmol/L 23-31 1223215514) AGAP (test code = 6 2-16 9787744091) BUN (test code = 25 mg/dL 7-23 H 6490033312) GLUCOSE (test code = 85 mg/dL 70-110 9665706347) CREATININE (test code = 1.02 mg/dL 0.60-1.25 4938188543) CALCIUM (test code = 8.7 mg/dL 8.6-10.6 8597311095) eGFR (test code = 74.8 mL/min/1.73m2 4891213737) DEWAYNE (test code = DEWAYNE) Association of [...] tests). Lab Interpretation Abnormal (test code = 38269-3) [facility] METABOLIC PANEL (NA, K, CL, CO2, GLUCOSE, BUN, CREATININE, CA)2022-05-29 15:33:06 Test Item Value Reference Range Interpretation Comments NA (test code = 139 mmol/L 135-145 1301162038) K (test code = 4.2 mmol/L 3.5-5.0 4834243619) CL (test code = 104 mmol/L 98-108 1602605179) CO2 TOTAL (test code = 29 mmol/L 23-31 5579695752) AGAP (test code = 6 2-16 4056824342) BUN (test code = 25 mg/dL 7-23 H 7917386231) GLUCOSE (test code = 85 mg/dL 70-110 8874952112) CREATININE (test code = 1.02 mg/dL 0.60-1.25 1792672139) CALCIUM (test code = 8.7 mg/dL 8.6-10.6 1758496729) eGFR (test code = 74.8 mL/min/1.73m2 4263354571) DEWAYNE (test code = DEWAYNE) Association of [...] tests). Lab Interpretation Abnormal (test code = 64075-1) [facility]2023-04-16 15:15:42 Test Item Value Reference Range Interpretation Comments Fibrinogen (test code = 6475776420) 368 mg/dL 167-453 Lab Interpretation (test code = Normal 35731-3) [facility]2023-04-16 15:15:42 Test Item Value Reference Range Interpretation Comments Fibrinogen (test code = 3725289817) 368 mg/dL 167-453 Lab Interpretation (test code = Normal 76748-9) [facility]2023-04-16 15:15:42 Test Item Value Reference Range Interpretation Comments Fibrinogen (test code = 0298657314) 368 mg/dL 167-453 Lab Interpretation (test code = Normal 14676-9) [facility] Test Item Value Reference Range Interpretation Comments Fibrinogen (test code = 0571344296) 368 mg/dL 167-453 Lab Interpretation (test code = Normal 79674-4) [facility] WITH [id number] 15:09:40 Test Item Value Reference Range Interpretation [...] RDW-SD (test code = 47.6 fL 38.5-51.6 75958-2) RDW-CV (test code = 14.7 % 12.1-15.4 788-0) PLT (test code = 252 See_Comment [Automated 777-3) message] The sy stem which generated this result transmitted reference range : 150 - 328 10*3/ ?L. The reference r mitra was not used to interpret this result as normal/abnormal . MPV (test code = 9.1 fL 9.8-13.0 L 34872-1) NRBC/100 WBC (test 0.0 See_Comment [Automat ed code = 1101962267) message] The system which generated this result transmitted reference range : 0.0 - 10.0 /100 WBCs. The refer ence range was not u sed to interpret th is result as normal/abnormal . NRBC x10^3 (test code See_Comment [Auto mated = 4508440729) message] The s ystem which generated this result transmitted reference range : 10*3/?L. The reference range was not used to interpret this result as normal/abnormal . GRAN MAT (NEUT) % 53.7 % (test code = 770-8) IMM GRAN % (test code 1.90 % = 9178434233) LYMPH % (test code = 29.6 % 736-9) MONO % (test code = 8.1 % 5905-5) EOS % (test code = 5.7 % 713-8) BASO % (test code = 1.0 % 706-2) GRAN MAT x10^3(ANC) 4.44 10*3/uL 1.99-6.95 (test code = 6135769478) IMM GRAN x10^3 (test 0.16 10*3/uL 0.00-0.06 H code = 1585971171) LYMPH x10^3 (test code 2.45 10*3/uL 1.09-3.23 = 731-0) MONO x10^3 (test code 0.67 10*3/uL 0.36-1.02 = 742-7) EOS x10^3 (test code = 0.47 10*3/uL 0.06-0.53 711-2) BASO x10^3 (test code 0.08 10*3/uL 0.01-0.09 = 704-7) Lab Interpretation Abnormal (test code = 69862-4) [facility] WITH [id number] 15:09:40 Test Item Value Reference Range Interpretation Comments WBC (test code = 8.27 See_Comment [Automated 8290-2) message] The sy stem which generated this [...] RDW-SD (test code = 47.6 fL 38.5-51.6 91021-2) RDW-CV (test code = 14.7 % 12.1-15.4 788-0) PLT (test code = 252 See_Comment [Automated 777-3) message] The sy stem which generated this result transmitted reference range : 150 - 328 10*3/ ?L. The reference r mitra was not used to interpret this result as normal/abnormal . MPV (test code = 9.1 fL 9.8-13.0 L 35243-6) NRBC/100 WBC (test 0.0 See_Comment [Automat ed code = 1135509220) message] The system which generated this result transmitted reference range : 0.0 - 10.0 /100 WBCs. The refer ence range was not u sed to interpret th is result as normal/abnormal . NRBC x10^3 (test code See_Comment [Auto mated = 6587098874) message] The s ystem which generated this result transmitted reference range : 10*3/?L. The reference range was not used to interpret this result as normal/abnormal . GRAN MAT (NEUT) % 53.7 % (test code = 770-8) IMM GRAN % (test code 1.90 % = 4080312249) LYMPH % (test code = 29.6 % 736-9) MONO % (test code = 8.1 % 5905-5) EOS % (test code = 5.7 % 713-8) BASO % (test code = 1.0 % 706-2) GRAN MAT x10^3(ANC) 4.44 10*3/uL 1.99-6.95 (test code = 9771966304) IMM GRAN x10^3 (test 0.16 10*3/uL 0.00-0.06 H code = 1483627587) LYMPH x10^3 (test code 2.45 10*3/uL 1.09-3.23 = 731-0) MONO x10^3 (test code 0.67 10*3/uL 0.36-1.02 = 742-7) EOS x10^3 (test code = 0.47 10*3/uL 0.06-0.53 711-2) BASO x10^3 (test code 0.08 10*3/uL 0.01-0.09 = 704-7) Lab Interpretation Abnormal (test code = 68968-5) [facility] WITH [id number] 15:09:40 Test Item Value Reference Range Interpretation Comments WBC (test code = 8.27 See_Comment [Automated 6690-2) message] The sy stem which generated this result transmitted reference range : 4.20 - 10.70 10*3/?L. The reference range was not used to interpret this result as normal/abnormal . RBC (test code = 4.18 See_Comment L [Automated 309-8) message] The sy [...] RDW-SD (test code = 47.6 fL 38.5-51.6 60834-7) RDW-CV (test code = 14.7 % 12.1-15.4 788-0) PLT (test code = 252 See_Comment [Automated 777-3) message] The sy stem which generated this result transmitted reference range : 150 - 328 10*3/ ?L. The reference r mitra was not used to interpret this result as normal/abnormal . MPV (test code = 9.1 fL 9.8-13.0 L 62596-4) NRBC/100 WBC (test 0.0 See_Comment [Automat ed code = 0361490249) message] The system which generated this result transmitted reference range : 0.0 - 10.0 /100 WBCs. The refer ence range was not u sed to interpret th is result as normal/abnormal . NRBC x10^3 (test code See_Comment [Auto mated = 3543448485) message] The s ystem which generated this result transmitted reference range : 10*3/?L. The reference range was not used to interpret this result as normal/abnormal . GRAN MAT (NEUT) % 53.7 % (test code = 770-8) IMM GRAN % (test code 1.90 % = 3422273677) LYMPH % (test code = 29.6 % 736-9) MONO % (test code = 8.1 % 5905-5) EOS % (test code = 5.7 % 713-8) BASO % (test code = 1.0 % 706-2) GRAN MAT x10^3(ANC) 4.44 10*3/uL 1.99-6.95 (test code = 3335502833) IMM GRAN x10^3 (test 0.16 10*3/uL 0.00-0.06 H code = 8155907054) LYMPH x10^3 (test code 2.45 10*3/uL 1.09-3.23 = 731-0) MONO x10^3 (test code 0.67 10*3/uL 0.36-1.02 = 742-7) EOS x10^3 (test code = 0.47 10*3/uL 0.06-0.53 711-2) BASO x10^3 (test code 0.08 10*3/uL 0.01-0.09 = 704-7) Lab Interpretation Abnormal (test code = 86541-1) [facility] WITH [id number] 15:09:40 Test Item Value Reference Range Interpretation [...] RDW-SD (test code = 47.6 fL 38.5-51.6 68764-7) RDW-CV (test code = 14.7 % 12.1-15.4 788-0) PLT (test code = 252 See_Comment [Automated 777-3) message] The sy stem which generated this result transmitted reference range : 150 - 328 10*3/ ?L. The reference r mitra was not used to interpret this result as normal/abnormal . MPV (test code = 9.1 fL 9.8-13.0 L 80431-9) NRBC/100 WBC (test 0.0 See_Comment [Automat ed code = 2393321715) message] The system which generated this result transmitted reference range : 0.0 - 10.0 /100 WBCs. The refer ence range was not u sed to interpret th is result as normal/abnormal . NRBC x10^3 (test code See_Comment [Auto mated = 9016019907) message] The s ystem which generated this result transmitted reference range : 10*3/?L. The reference range was not used to interpret this result as normal/abnormal . GRAN MAT (NEUT) % 53.7 % (test code = 770-8) IMM GRAN % (test code 1.90 % = 9721177030) LYMPH % (test code = 29.6 % 736-9) MONO % (test code = 8.1 % 5905-5) EOS % (test code = 5.7 % 713-8) BASO % (test code = 1.0 % 706-2) GRAN MAT x10^3(ANC) 4.44 10*3/uL 1.99-6.95 (test code = 4154598598) IMM GRAN x10^3 (test 0.16 10*3/uL 0.00-0.06 H code = 2999015553) LYMPH x10^3 (test code 2.45 10*3/uL 1.09-3.23 = 731-0) MONO x10^3 (test code 0.67 10*3/uL 0.36-1.02 = 742-7) EOS x10^3 (test code = 0.47 10*3/uL 0.06-0.53 711-2) BASO x10^3 (test code 0.08 10*3/uL 0.01-0.09 = 704-7) Lab Interpretation Abnormal (test code = 07913-7) [facility] (for use with Heparin Infusion)2022-05-29 11:36:15 Test Item Value Reference Range Interpretation Comments APTT Patient (test code 52 See_Comment H [Au tomated message] = 3173-2) The system [employer] generated this result transmitted ref erence range: 26 - 36 Seconds. The reference range was not used to int erpret this result as normal/abnormal . Lab Interpretation (test Abnormal code = 08285-4) [facility] (for use with Heparin Infusion)2022-05-29 11:36:15 Test Item Value Reference Range Interpretation Comments APTT Patient (test code 52 See_Comment H [Au tomated message] = 3173-2) The system [employer] generated this result transmitted ref erence range: 26 - 36 Seconds. The reference range was not used to int erpret this result as normal/abnormal . Lab Interpretation (test Abnormal code = 67622-2) [facility] (for use with Heparin Infusion)2022-05-29 11:36:15 Test Item Value Reference Range Interpretation Comments APTT Patient (test code 52 See_Comment H [Au tomated message] = 3173-2) The system [employer] generated this result transmitted ref erence range: 26 - 36 Seconds. The reference range was not used to int erpret this result as normal/abnormal . Lab Interpretation (test Abnormal code = 40885-3) [facility] (for use with Heparin Infusion)2022-05-29 11:36:15 Test Item Value Reference Range Interpretation Comments APTT Patient (test code 52 See_Comment H [Au tomated message] = 3173-2) The system [employer] generated this result transmitted ref erence range: 26 - 36 Seconds. The reference range was not used to int erpret this result as normal/abnormal . Lab Interpretation (test Abnormal code = 92705-4) [facility] METABOLIC PANEL (NA, K, CL, CO2, GLUCOSE, BUN, CREATININE, CA)2022-05-29 11:35:55 Test Item Value Reference Range Interpretation Comments NA (test code = 136 mmol/L 135-145 9293854822) K (test code = 4.9 mmol/L 3.5-5.0 Slight 7994573703) hemolysis CL (test code = 106 mmol/L 98-108 3175495422) CO2 TOTAL (test code 28 mmol/L 23-31 = 9878387292) AGAP (test code = 2 2-16 7882246148) BUN (test code = 26 mg/dL 7-23 H Slight 5610854767) hemolysis GLUCOSE (test code = 88 mg/dL 70-110 6753725593) CREATININE (test code 0.86 mg/dL 0.60-1.25 = 5741112419) CALCIUM (test code = 8.4 mg/dL 8.6-10.6 L 4061054054) eGFR (test code = 91.0 mL/min/1.73m2 5091919706) DEWAYNE (test code = DEWAYNE) Association of [...] tests). Lab Interpretation Abnormal (test code = 73930-9) [facility] 11:35:55 Test Item Value Reference Range Interpretation Comments MAGNESIUM (test code = 5005358658) 2.4 mg/dL 1.7-2.4 Lab Interpretation (test code = Normal 15902-5) [facility] (NA, K, CL, CO2, GLUCOSE, BUN, CREATININE, CA)2022-05-29 11:35:55 Test Item Value Reference Range Interpretation Comments NA (test code = 136 mmol/L 135-145 9006521553) K (test code = 4.9 mmol/L 3.5-5.0 Slight 6452694729) hemolysis CL (test code = 106 mmol/L 98-108 3133251224) CO2 TOTAL (test code 28 mmol/L 23-31 = 2680565613) AGAP (test code = 2 2-16 2010063217) BUN (test code = 26 mg/dL 7-23 H Slight 2222977487) hemolysis GLUCOSE (test code = 88 mg/dL 70-110 4709895651) CREATININE (test code 0.86 mg/dL 0.60-1.25 = 8911242107) CALCIUM (test code = 8.4 mg/dL 8.6-10.6 L 2275987614) eGFR (test code = 91.0 mL/min/1.73m2 3871075206) DEWAYNE (test code = DEWAYNE) Association of [...] tests). Lab Interpretation Abnormal (test code = 84895-7) [facility] 11:35:55 Test Item Value Reference Range Interpretation Comments MAGNESIUM (test code = 8856140031) 2.4 mg/dL 1.7-2.4 Lab Interpretation (test code = Normal 25162-5) [facility] (NA, K, CL, CO2, GLUCOSE, BUN, CREATININE, CA)2022-05-29 11:35:55 Test Item Value Reference Range Interpretation Comments NA (test code = 136 mmol/L 135-145 6338593376) K (test code = 4.9 mmol/L 3.5-5.0 Slight 0853936928) hemolysis CL (test code = 106 mmol/L 98-108 3651782264) CO2 TOTAL (test code 28 mmol/L 23-31 = 0311344975) AGAP (test code = 2 2-16 0989744356) BUN (test code = 26 mg/dL 7-23 H Slight 8503701089) hemolysis GLUCOSE (test code = 88 mg/dL 70-110 7822009252) CREATININE (test code 0.86 mg/dL 0.60-1.25 = 5255673506) CALCIUM (test code = 8.4 mg/dL 8.6-10.6 L 8432647465) eGFR (test code = 91.0 mL/min/1.73m2 7509915721) DEWAYNE (test code = DEWAYNE) Association of [...] tests). Lab Interpretation Abnormal (test code = 03558-0) [facility] 11:35:55 Test Item Value Reference Range Interpretation Comments MAGNESIUM (test code = 6744111185) 2.4 mg/dL 1.7-2.4 Lab Interpretation (test code = Normal 10670-0) [facility] (NA, K, CL, CO2, GLUCOSE, BUN, CREATININE, CA)2022-05-29 11:35:55 Test Item Value Reference Range Interpretation Comments NA (test code = 136 mmol/L 135-145 9786234166) K (test code = 4.9 mmol/L 3.5-5.0 Slight 7227193051) hemolysis CL (test code = 106 mmol/L 98-108 4498811750) CO2 TOTAL (test code 28 mmol/L 23-31 = 8528124026) AGAP (test code = 2 2-16 5603416303) BUN (test code = 26 mg/dL 7-23 H Slight 5536910280) hemolysis GLUCOSE (test code = 88 mg/dL 70-110 9332413037) CREATININE (test code 0.86 mg/dL 0.60-1.25 = 3796512625) CALCIUM (test code = 8.4 mg/dL 8.6-10.6 L 5238784909) eGFR (test code = 91.0 mL/min/1.73m2 8709503231) DEWAYNE (test code = DEWAYNE) Association of [...] tests). Lab Interpretation Abnormal (test code = 53427-8) [facility] 11:35:55 Test Item Value Reference Range Interpretation Comments MAGNESIUM (test code = 5106388249) 2.4 mg/dL 1.7-2.4 Lab Interpretation (test code = Normal 68973-2) [facility] [id number] 11:28:31 Test Item Value Reference Range Interpretation Comments WBC (test code = 6690-2) 7.81 See_Comment [A utomated message] The system [employer] generated this result transmit elizabeth reference range : 4.20 - 10.70 10*3/?L. The reference range was not used to interpret this result as normal/abnormal . RBC (test code = 789-8) 4.04 See_Comment L [Au tomated message] The system [employer] generated this result transmit elizabeth reference range [...] 252 See_Comment [Au tomated message] The system [employer] generated this result transmit elizabeth reference range : 150 - 328 10*3/?L. The reference range was not used to interpret this result as normal/abnormal . MPV (test code = 9.6 fL 9.8-13.0 L 54834-6) RDW-CV (test code = 14.6 % 12.1-15.4 788-0) RDW-SD (test code = 46.5 fL 38.5-51.6 85559-5) NRBC x10^3 (test code = See_Comment [Au tomated message] 6939104806) The system [employer] generated this result transmit elizabeth reference range : 10*3/?L. The reference range was not used to interpret this result as normal/abnormal . NRBC/100 WBC (test code 0.0 See_Comment [Au tomated message] = 5701804352) The system [employer] generated this result transmit elizabeth reference range : 0.0 - 10.0 /100 WBC s. The reference r mitra was not used to interpret this result as normal/abnormal . IPF % (test code = 5412016267) Lab Interpretation (test Abnormal code = 53483-3) [facility] [id number] 11:28:31 Test Item Value Reference Range Interpretation Comments WBC (test code = 6690-2) 7.81 See_Comment [A utomated message] The system [employer] generated this result transmit elizabeth reference range : 4.20 - 10.70 10*3/?L. The reference range was not used to interpret this result as normal/abnormal . RBC (test code = 789-8) 4.04 See_Comment L [Au tomated message] The system [employer] generated this result transmit elizabeth reference range [...] 252 See_Comment [Au tomated message] The system [employer] generated this result transmit elizabeth reference range : 150 - 328 10*3/?L. The reference range was not used to interpret this result as normal/abnormal . MPV (test code = 9.6 fL 9.8-13.0 L 75312-5) RDW-CV (test code = 14.6 % 12.1-15.4 788-0) RDW-SD (test code = 46.5 fL 38.5-51.6 66955-7) NRBC x10^3 (test code = See_Comment [Au tomated message] 5048801081) The system [employer] generated this result transmit elizabeth reference range : 10*3/?L. The reference range was not used to interpret this result as normal/abnormal . NRBC/100 WBC (test code 0.0 See_Comment [Au tomated message] = 2701370267) The system [employer] generated this result transmit elizabeth reference range : 0.0 - 10.0 /100 WBC s. The reference r mitra was not used to interpret this result as normal/abnormal . IPF % (test code = 7855194099) Lab Interpretation (test Abnormal code = 20868-8) [facility] [id number] 11:28:31 Test Item Value Reference Range Interpretation Comments WBC (test code = 6690-2) 7.81 See_Comment [A utomated message] The system [employer] generated this result transmit elizabeth reference range : 4.20 - 10.70 10*3/?L. The reference range was not used to interpret this result as normal/abnormal . RBC (test code = 789-8) 4.04 See_Comment L [Au tomated message] The [facility] generated this result transmit elizabeth [...] 252 See_Comment [Au tomated message] The system [employer] generated this result transmit elizabeth reference range : 150 - 328 10*3/?L. The reference range was not used to interpret this result as normal/abnormal . MPV (test code = 9.6 fL 9.8-13.0 L 17002-7) RDW-CV (test code = 14.6 % 12.1-15.4 788-0) RDW-SD (test code = 46.5 fL 38.5-51.6 05247-7) NRBC x10^3 (test code = See_Comment [Au tomated message] 7790170546) The system [employer] generated this result transmit elizabeth reference range : 10*3/?L. The reference range was not used to interpret this result as normal/abnormal . NRBC/100 WBC (test code 0.0 See_Comment [Au tomated message] = 9094621907) The system [employer] generated this result transmit elizabeth reference range : 0.0 - 10.0 /100 WBC s. The reference r mitra was not used to interpret this result as normal/abnormal . IPF % (test code = 0230307769) Lab Interpretation (test Abnormal code = 97378-6) [facility] [id number] 11:28:31 Test Item Value Reference Range Interpretation Comments WBC (test code = 6690-2) 7.81 See_Comment [A utomated message] The system [employer] generated this result transmit elizabeth reference range : 4.20 - 10.70 10*3/?L. The reference range was not used to interpret this result as normal/abnormal . RBC (test code = 789-8) 4.04 See_Comment L [Au tomated message] The system [employer] generated this result transmit elizabeth reference range [...] 252 See_Comment [Au tomated message] The system [employer] generated this result transmit elizabeth reference range : 150 - 328 10*3/?L. The reference range was not used to interpret this result as normal/abnormal . MPV (test code = 9.6 fL 9.8-13.0 L 93895-0) RDW-CV (test code = 14.6 % 12.1-15.4 788-0) RDW-SD (test code = 46.5 fL 38.5-51.6 09430-7) NRBC x10^3 (test code = See_Comment [Au tomated message] 2003584351) The system [employer] generated this result transmit elizabeth reference range : 10*3/?L. The reference range was not used to interpret this result as normal/abnormal . NRBC/100 WBC (test code 0.0 See_Comment [Au tomated message] = 2585516151) The system [employer] generated this result transmit elizabeth reference range : 0.0 - 10.0 /100 WBC s. The reference r mitra was not used to interpret this result as normal/abnormal . IPF % (test code = 0329087716) Lab Interpretation (test Abnormal code = 00902-0) [facility] [id number] 18:45:15 Test Item Value Reference Range Interpretation Comments Factor 2 [id number] Heterozygous Normal Mutation (test code = 0480521841) DEWAYNE (test code = Phenotype DEWAYNE) Characteristics: [...] further increased for homozygotes. Mutation Tested: F2 c.22037N>A (Q40916K). Clinical Sensitivity for Venous Thrombosis: Approximately 10%. Methodology: Polymerase chain reaction and fluorescence monitoring Limitations: The performance of this assay has not been evaluated with samples from pediatric patients. Counseling and informed consent are recommended for genetic testing. References: OMIM: 090507 [email or web address].[email or web address].gov/c ondition/prothrombin-thro mbophilia [facility] [id number] 18:45:15 Test Item Value Reference Range Interpretation Comments FACTOR 5 LEIDEN Heterozygous Normal (test code = 0130204374) DEWAYNE (test code = Phenotype Characteristics: DEWAYNE) [...] the Factor 5 Leiden mutation is c.1601G>A (p.Vms568Fql). Methodology: Polymerase chain reaction and fluorescence monitoring. Limitations: Rare Factor V mutations (H8698N, J0066Y, and Q1077J) and any additional SNPs in the probe binding region may interfere with the target detection and yield an INVALID result. The performance of this assay has not been evaluated with samples from pediatric patients. Counseling and informed consent are recommended for genetic testing. References: OMIM: 194388 [email or web address].nlm.nih.gov/co ndition/olykrc-p-mgdose-th rombophilia [facility] [id number] 18:45:15 Test Item Value Reference Range Interpretation Comments Factor 2 [id number] Heterozygous Normal Mutation (test code = 8335372985) DEWAYNE (test code = Phenotype DEWAYNE) Characteristics: [...] further increased for homozygotes. Mutation Tested: F2 c.24479R>A (S31306E). Clinical Sensitivity for Venous Thrombosis: Approximately 10%. Methodology: Polymerase chain reaction and fluorescence monitoring Limitations: The performance of this assay has not been evaluated with samples from pediatric patients. Counseling and informed consent are recommended for genetic testing. References: OMIM: 411725 [email or web address].nlm.nih.gov/c ondition/prothrombin-thro mbophilia [facility] [id number] 18:45:15 Test Item Value Reference Range Interpretation Comments FACTOR 5 LEIDEN Heterozygous Normal (test code = 0168690803) DEWAYNE (test code = Phenotype Characteristics: DEWAYNE) [...] the Factor 5 Leiden mutation is c.1601G>A (p.Ttu147Xvf). Methodology: Polymerase chain reaction and fluorescence monitoring. Limitations: Rare Factor V mutations (T7778N, O2800I, and G7952P) and any additional SNPs in the probe binding region may interfere with the target detection and yield an INVALID result. The performance of this assay has not been evaluated with samples from pediatric patients. Counseling and informed consent are recommended for genetic testing. References: OMIM: 241016 https://ghr.nlm.nih.gov/co ndition/tkfevr-t-ydmeom-th rombophilia [facility] [id number] [id number] 18:45:15 Test Item Value Reference Range Interpretation Comments Factor 2 I25001P Heterozygous Normal Mutation (test code = 9537429152) DEWAYNE (test code = Phenotype DEWAYNE) Characteristics: [...] further increased for homozygotes. Mutation Tested: F2 c.90695V>A (E70007X). Clinical Sensitivity for Venous Thrombosis: Approximately 10%. Methodology: Polymerase chain reaction and fluorescence monitoring Limitations: The performance of this assay has not been evaluated with samples from pediatric patients. Counseling and informed consent are recommended for genetic testing. References: OMIM: 635330 https://ghr.nlm.nih.gov/c ondition/prothrombin-thro mbophilia [facility] [id number] 18:45:15 Test Item Value Reference Range Interpretation Comments FACTOR 5 LEIDEN Heterozygous Normal (test code = 9928505139) DEWAYNE (test code = Phenotype Characteristics: DEWAYNE) [...] the Factor 5 Leiden mutation is c.1601G>A (p.Wyo995Rfy). Methodology: Polymerase chain reaction and fluorescence monitoring. Limitations: Rare Factor V mutations (U7514S, O3931I, and U2697V) and any additional SNPs in the probe binding region may interfere with the target detection and yield an INVALID result. The performance of this assay has not been evaluated with samples from pediatric patients. Counseling and informed consent are recommended for genetic testing. References: OMIM: 824003 https://ghr.nlm.nih.gov/co ndition/ehzfhe-o-szbtgg-th rombophilia [facility] [id number] [id number] 18:45:15 Test Item Value Reference Range Interpretation Comments Factor 2 [id number] Heterozygous Normal Mutation (test code = 7887200036) DEWAYNE (test code = Phenotype DEWAYNE) Characteristics: [...] further increased for homozygotes. Mutation Tested: F2 c.83705C>A (S10576M). Clinical Sensitivity for Venous Thrombosis: Approximately 10%. Methodology: Polymerase chain reaction and fluorescence monitoring Limitations: The performance of this assay has not been evaluated with samples from pediatric patients. Counseling and informed consent are recommended for genetic testing. References: OMIM: 385722 https://ghr.nlm.nih.gov/c ondition/prothrombin-thro mbophilia [facility] [id number] 18:45:15 Test Item Value Reference Range Interpretation Comments FACTOR 5 LEIDEN Heterozygous Normal (test code = 5105698663) DEWAYNE (test code = Phenotype Characteristics: DEWAYNE) [...] the Factor 5 Leiden mutation is c.1601G>A (p.Gyx475Oqh). Methodology: Polymerase chain reaction and fluorescence monitoring. Limitations: Rare Factor V mutations (I5419Q, Z3868S, and Q2890V) and any additional SNPs in the probe binding region may interfere with the target detection and yield an INVALID result. The performance of this assay has not been evaluated with samples from pediatric patients. Counseling and informed consent are recommended for genetic testing. References: OMIM: 727215 https://ghr.nlm.nih.gov/co ndition/enoxtf-r-uxcors- rombophilia [facility] (NA, K, CL, CO2, GLUCOSE, BUN, CREATININE, CA)2022-05-28 09:52:42 Test Item Value Reference Range Interpretation Comments NA (test code = 137 mmol/L 135-145 7766673573) K (test code = 3.8 mmol/L 3.5-5.0 8516673146) CL (test code = 103 mmol/L 98-108 6277474604) CO2 TOTAL (test code = 27 mmol/L 23-31 6430354243) AGAP (test code = 7 2-16 4300144319) BUN (test code = 27 mg/dL 7-23 H 9495688726) GLUCOSE (test code = 105 mg/dL 70-110 6572837237) CREATININE (test code = 0.84 mg/dL 0.60-1.25 5714943101) CALCIUM (test code = 8.5 mg/dL 8.6-10.6 L 3031014627) eGFR (test code = 93.5 mL/min/1.73m2 9447211368) DEWAYNE (test code = DEWAYNE) Association of [...] tests). Lab Interpretation Abnormal (test code = 69343-9) [facility] METABOLIC PANEL (NA, K, CL, CO2, GLUCOSE, BUN, CREATININE, CA)2022-05-28 09:52:42 Test Item Value Reference Range Interpretation Comments NA (test code = 137 mmol/L 135-145 5852066332) K (test code = 3.8 mmol/L 3.5-5.0 5705404632) CL (test code = 103 mmol/L 98-108 0464877517) CO2 TOTAL (test code = 27 mmol/L 23-31 9689140916) AGAP (test code = 7 2-16 6723143261) BUN (test code = 27 mg/dL 7-23 H 5850994762) GLUCOSE (test code = 105 mg/dL 70-110 8986211775) CREATININE (test code = 0.84 mg/dL 0.60-1.25 5287813122) CALCIUM (test code = 8.5 mg/dL 8.6-10.6 L 3836129017) eGFR (test code = 93.5 mL/min/1.73m2 9012160857) DEWAYNE (test code = DEWAYNE) Association of [...] tests). Lab Interpretation Abnormal (test code = 29773-2) [facility] METABOLIC PANEL (NA, K, CL, CO2, GLUCOSE, BUN, CREATININE, CA)2022-05-28 09:52:42 Test Item Value Reference Range Interpretation Comments NA (test code = 137 mmol/L 135-145 5935403827) K (test code = 3.8 mmol/L 3.5-5.0 3686147489) CL (test code = 103 mmol/L 98-108 7656558682) CO2 TOTAL (test code = 27 mmol/L 23-31 7679202649) AGAP (test code = 7 2-16 4666197447) BUN (test code = 27 mg/dL 7-23 H 5425574600) GLUCOSE (test code = 105 mg/dL 70-110 3055760857) CREATININE (test code = 0.84 mg/dL 0.60-1.25 4145985389) CALCIUM (test code = 8.5 mg/dL 8.6-10.6 L 5891987011) eGFR (test code = 93.5 mL/min/1.73m2 9407234393) DEWAYNE (test code = DEWAYNE) Association of [...] tests). Lab Interpretation Abnormal (test code = 07338-5) [facility] (NA, K, CL, CO2, GLUCOSE, BUN, CREATININE, CA)2022-05-28 09:52:42 Test Item Value Reference Range Interpretation Comments NA (test code = 137 mmol/L 135-145 7220056758) K (test code = 3.8 mmol/L 3.5-5.0 4071717378) CL (test code = 103 mmol/L 98-108 6813077248) CO2 TOTAL (test code = 27 mmol/L 23-31 1640718520) AGAP (test code = 7 2-16 0535358223) BUN (test code = 27 mg/dL 7-23 H 7621908960) GLUCOSE (test code = 105 mg/dL 70-110 4527709020) CREATININE (test code = 0.84 mg/dL 0.60-1.25 8449013832) CALCIUM (test code = 8.5 mg/dL 8.6-10.6 L 7412648695) eGFR (test code = 93.5 mL/min/1.73m2 2639103342) DEWAYNE (test code = DEWAYNE) Association of [...] tests). Lab Interpretation Abnormal (test code = 72996-0) [facility] WITH [id number] 09:29:20 Test Item Value Reference Range Interpretation Comments WBC (test code = 8.34 See_Comment [Automated 8543-2) message] The sy stem which generated this result transmitted reference range : 4.20 - 10.70 10*3/?L. The reference range was not used to interpret this result as normal/abnormal . RBC (test code = 4.08 See_Comment L [Automated 767-8) message] The sy stem which generated this [...] RDW-SD (test code = 44.7 fL 38.5-51.6 70739-6) RDW-CV (test code = 14.5 % 12.1-15.4 788-0) PLT (test code = 199 See_Comment [Automated 777-3) message] The sy stem which generated this result transmitted reference range : 150 - 328 10*3/ ?L. The reference r mitra was not used to interpret this result as normal/abnormal . MPV (test code = 9.3 fL 9.8-13.0 L 35164-6) NRBC/100 WBC (test 0.0 See_Comment [Automat ed code = 5532217813) message] The system which generated this result transmitted reference range : 0.0 - 10.0 /100 WBCs. The refer ence range was not u sed to interpret th is result as normal/abnormal . NRBC x10^3 (test code See_Comment [Auto mated = 6849618995) message] The s ystem which generated this result transmitted reference range : 10*3/?L. The reference range was not used to interpret this result as normal/abnormal . GRAN MAT (NEUT) % 56.1 % (test code = 770-8) IMM GRAN % (test code 1.20 % = 6119233062) LYMPH % (test code = 30.8 % 736-9) MONO % (test code = 7.6 % 5905-5) EOS % (test code = 3.7 % 713-8) BASO % (test code = 0.6 % 706-2) GRAN MAT x10^3(ANC) 4.68 10*3/uL 1.99-6.95 (test code = 8983675918) IMM GRAN x10^3 (test 0.10 10*3/uL 0.00-0.06 H code = 4329299096) LYMPH x10^3 (test code 2.57 10*3/uL 1.09-3.23 = 731-0) MONO x10^3 (test code 0.63 10*3/uL 0.36-1.02 = 742-7) EOS x10^3 (test code = 0.31 10*3/uL 0.06-0.53 711-2) BASO x10^3 (test code 0.05 10*3/uL 0.01-0.09 = 704-7) Lab Interpretation Abnormal (test code = 38189-6) [facility] WITH [id number] 09:29:20 Test Item Value Reference Range Interpretation [...] RDW-SD (test code = 44.7 fL 38.5-51.6 55675-8) RDW-CV (test code = 14.5 % 12.1-15.4 788-0) PLT (test code = 199 See_Comment [Automated 777-3) message] The sy stem which generated this result transmitted reference range : 150 - 328 10*3/ ?L. The reference r mitra was not used to interpret this result as normal/abnormal . MPV (test code = 9.3 fL 9.8-13.0 L 81359-3) NRBC/100 WBC (test 0.0 See_Comment [Automat ed code = 7127259716) message] The system which generated this result transmitted reference range : 0.0 - 10.0 /100 WBCs. The refer ence range was not u sed to interpret th is result as normal/abnormal . NRBC x10^3 (test code See_Comment [Auto mated = 8763823044) message] The s ystem which generated this result transmitted reference range : 10*3/?L. The reference range was not used to interpret this result as normal/abnormal . GRAN MAT (NEUT) % 56.1 % (test code = 770-8) IMM GRAN % (test code 1.20 % = 1527731969) LYMPH % (test code = 30.8 % 736-9) MONO % (test code = 7.6 % 5905-5) EOS % (test code = 3.7 % 713-8) BASO % (test code = 0.6 % 706-2) GRAN MAT x10^3(ANC) 4.68 10*3/uL 1.99-6.95 (test code = 4612880760) IMM GRAN x10^3 (test 0.10 10*3/uL 0.00-0.06 H code = 7719936450) LYMPH x10^3 (test code 2.57 10*3/uL 1.09-3.23 = 731-0) MONO x10^3 (test code 0.63 10*3/uL 0.36-1.02 = 742-7) EOS x10^3 (test code = 0.31 10*3/uL 0.06-0.53 711-2) BASO x10^3 (test code 0.05 10*3/uL 0.01-0.09 = 704-7) Lab Interpretation Abnormal (test code = 37362-5) [facility] WITH [id number] 09:29:20 Test Item Value Reference Range Interpretation Comments WBC (test code = 8.34 See_Comment [Automated 4090-2) message] The sy stem which generated this result transmitted reference range : 4.20 - 10.70 10*3/?L. The reference range was not used to interpret this result as normal/abnormal . RBC (test code = 4.08 See_Comment L [Automated 149-8) message] The sy stem which generated this [...] RDW-SD (test code = 44.7 fL 38.5-51.6 80367-0) RDW-CV (test code = 14.5 % 12.1-15.4 788-0) PLT (test code = 199 See_Comment [Automated 777-3) message] The sy stem which generated this result transmitted reference range : 150 - 328 10*3/ ?L. The reference r mitra was not used to interpret this result as normal/abnormal . MPV (test code = 9.3 fL 9.8-13.0 L 52482-0) NRBC/100 WBC (test 0.0 See_Comment [Automat ed code = 3058710519) message] The system which generated this result transmitted reference range : 0.0 - 10.0 /100 WBCs. The refer ence range was not u sed to interpret th is result as normal/abnormal . NRBC x10^3 (test code See_Comment [Auto mated = 5486461272) message] The s ystem which generated this result transmitted reference range : 10*3/?L. The reference range was not used to interpret this result as normal/abnormal . GRAN MAT (NEUT) % 56.1 % (test code = 770-8) IMM GRAN % (test code 1.20 % = 4280967948) LYMPH % (test code = 30.8 % 736-9) MONO % (test code = 7.6 % 5905-5) EOS % (test code = 3.7 % 713-8) BASO % (test code = 0.6 % 706-2) GRAN MAT x10^3(ANC) 4.68 10*3/uL 1.99-6.95 (test code = 2101066441) IMM GRAN x10^3 (test 0.10 10*3/uL 0.00-0.06 H code = 3311930272) LYMPH x10^3 (test code 2.57 10*3/uL 1.09-3.23 = 731-0) MONO x10^3 (test code 0.63 10*3/uL 0.36-1.02 = 742-7) EOS x10^3 (test code = 0.31 10*3/uL 0.06-0.53 711-2) BASO x10^3 (test code 0.05 10*3/uL 0.01-0.09 = 704-7) Lab Interpretation Abnormal (test code = 87691-9) [facility] WITH [id number] 09:29:20 Test Item Value Reference Range Interpretation Comments WBC (test code = 8.34 See_Comment [Automated 9090-2) message] The sy stem [...] RDW-SD (test code = 44.7 fL 38.5-51.6 61433-9) RDW-CV (test code = 14.5 % 12.1-15.4 788-0) PLT (test code = 199 See_Comment [Automated 777-3) message] The sy stem which generated this result transmitted reference range : 150 - 328 10*3/ ?L. The reference r mitra was not used to interpret this result as normal/abnormal . MPV (test code = 9.3 fL 9.8-13.0 L 87841-0) NRBC/100 WBC (test 0.0 See_Comment [Automat ed code = 8273262700) message] The system which generated this result transmitted reference range : 0.0 - 10.0 /100 WBCs. The refer ence range was not u sed to interpret th is result as normal/abnormal . NRBC x10^3 (test code See_Comment [Auto mated = 3532336186) message] The s ystem which generated this result transmitted reference range : 10*3/?L. The reference range was not used to interpret this result as normal/abnormal . GRAN MAT (NEUT) % 56.1 % (test code = 770-8) IMM GRAN % (test code 1.20 % = 4489569394) LYMPH % (test code = 30.8 % 736-9) MONO % (test code = 7.6 % 5905-5) EOS % (test code = 3.7 % 713-8) BASO % (test code = 0.6 % 706-2) GRAN MAT x10^3(ANC) 4.68 10*3/uL 1.99-6.95 (test code = 4802374607) IMM GRAN x10^3 (test 0.10 10*3/uL 0.00-0.06 H code = 6075901395) LYMPH x10^3 (test code 2.57 10*3/uL 1.09-3.23 = 731-0) MONO x10^3 (test code 0.63 10*3/uL 0.36-1.02 = 742-7) EOS x10^3 (test code = 0.31 10*3/uL 0.06-0.53 711-2) BASO x10^3 (test code 0.05 10*3/uL 0.01-0.09 = 704-7) Lab Interpretation Abnormal (test code = 82562-3) [facility] [id number] 04:20:00 Test Item Value Reference Interpretation Comments Range Levetiracetam 4.1 ug/mL 10.0-40.0 A This test was developed and ([facility]), S (test its perfor fritz code = JORGERA.L) characteris ticsdetermined by [facility]. It has not been cleared orappro mannie by the Food and Drug Administration. Performed at: [facility] [id number] [place], [place] [address]Kdw Di shahid: Miriam Sevilla MD, Ph one: [phone] Drug Screen,[id number] 20:40:00 Test Item Value Reference Range Interpretation [...] Negative Negative code = UPROP) Comprehensive Metabolic Nxrsv3893-30-70 19:50:00 Test Item Value Reference Range Interpretation [...] 47 U/L 46-116 N = ALP) Troponin [id number] 19:50:00 Test Item Value Reference Range Interpretation [...] 99th percentile in serialmeasureme nts. Prothrombin Time [id number] 19:50:00 Test Item Value Reference Range Interpretation Comments Prothrombin Time (test code = 10.9 Seconds 9.8-13.4 N PT) INR (test code = INR) 1.0 ratio 0.6-1.2 N Partial Thromboplastin [id number] 19:50:00 Test Item Value Reference Range Interpretation Comments Partial Thromboplastin Time 20.00 Seconds 24.39-37.25 L (test code = PTT) Complete Blood Count Auto Fnhl9594-14-69 19:50:00 Test Item Value Reference Range Interpretation [...] code = NRBCP) 0 % B-Type Natriuretic Jlxnabl7302-25-21 19:50:00 Test Item Value Reference Range Interpretation Comments B-Type Natriuretic Peptide (test 30.2 pg/mL 0.0-99.9 N code = BNP) SARS-CoV-2 (COVID-19) RNA [Presence] in Respiratory specimen by COOPER with probe ayszriwrm0572-78-07 03:31:41 Test Item Value Reference Range Interpretation Comments SARS-CoV-2 (COVID-19) RNA Not detected Not-Detected [Presence] in Respiratory specimen by COOPER with probe detection (test code = 92408-5) [facility] [place] Met[facility] [id number] 20:19:00 Test Item Value Reference Range Interpretation [...] ://nkd ep.nih.gov CT HEAD OR BRAIN WO DRUKLJVS9870-02-98 18:19:40Location code: R 15HISTORY: Intracranial hemorrhageCOMPARISON: None.TECHNIQUE: [...] Unremarkable nonenhanced CT scan of the brain.Ammonia, Vtcch6110-92-95 12:35:00 Test Item Value Reference Range Interpretation Comments Ammonia (test code = NH3) 25.0 umol/L 11.0-35.0 N US DUPLX EXT VEINS COMPRS, [id number] 15:35:40ULTRASOUND: Bilateral lower extremity venous duplex sonography.History: [...] An IVC filter is in place.Impression:Unremarkable exam.Glycosylated Mbqlfcixbb3872-13-16 10:36:00 Test Item Value Reference Range Interpretation Comments HBA1c (test code = HBA1C) 5.1 % 4.8-5.9 N RPR, [id number] 12:10:00 Test Item Value Reference Range Interpretation Comments RPR (test code = RPR) Non-Reactive Non-Reactive N Thyroid Stimulating Hormone (TSH)2016-12-24 06:02:00 Test Item Value Reference Range Interpretation Comments TSH (test code = TSH) 1.03 mIU/mL 0.270-4.200 N Lipid Aagnjyp9472-52-37 05:53:00 Test Item Value Reference Range Interpretation Comments Cholesterol (test 205 mg/dL 0-200 H code = CHOL) Triglycerides (test 69 mg/dL 9-200 N code = TRIG) HDL (test code = 68 mg/dL 40-60 H HDL) Chol/HDL (test code 3.0 Ratio 0.0-5.0 N = CHOLPHDL) LDL, Calculated 123 0-130 N (NOTE)RISK O F HEART (test code = LDLC) DISEASEPu blished by [place] Heart AssociationAnal yte Optimal Boderli ne Increased RiskC HOL <200 200-239 >240TRI G <150 150-199 >200HD L Male: >60 <40HDL Fema le: >60 <50LDL <100 130-159 >160LDL NEAR OPTIMAL IS 100- 129 VLDL (test code = 14 mg/dL 5-40 N VLDL) LDL/HDL (test code = 2 LDLPHDL) Comprehensive Metabolic Neuvb2665-52-42 18:42:00 Test Item Value Reference Range Interpretation [...] by th e MDRD study and christopher reed be interpretedwith caution.eGFR Re sult Interpretation: eGFR > or = 60 is in t he Normal RangeeGF R < 60 may mean kidney diseaseeGFR < 1 5 may mean kidney failureRange s recommended by the National Kidney Foundation,http ://nkd ep.nih.gov CBC with Wfamzbpyzujs0468-68-02 17:59:00 Test Item Value Reference Range Interpretation [...] code = ALYMPH) 1.4 K/cumm 0.5-4.6 N [place] Abs (test code = AMONO) 0.9 K/cumm 0.0-1.2 N Eos Abs (test code = AEOS) 0.01 K/cumm 0.00-0.74 N Baso Abs (test code = ABASO) 0.0 K/cumm 0.00-0.21 N BMCAPTACSJFQ0677-61-08 18:46:00 Test Item Value Reference Range Interpretation Comments B/C Ratio (test code = B/C Ratio) 18 6-25 [facility]OlvlidmCQUHFXXRWJHX9995-69-66 18:46:00 Test Item Value Reference Range Interpretation Comments A/G Ratio (test code = A/G Ratio) 1.1 0.7-1.6 [facility] SurgeryIjfbnlcSBREGWCCNGXE0618-92-12 18:46:00 Test Item Value Reference Range Interpretation Comments Globulin (test code = Globulin) 3.3 2.0-4.0 [facility] SurgeryWjxgrneVRFBPJZGQFGY9358-41-53 18:46:00 Test Item Value Reference Range Interpretation Comments eGFR (test code = eGFR) 99 [facility] SurgeryEhibkztLPABDNGNBLFM5870-88-32 18:46:00 Test Item Value Reference Range Interpretation Comments Calcium Lvl (test code = Calcium Lvl) 9.0 8.5-10.5 [facility] SurgeryYbxzqjtLGBALYXYTPIB4193-02-45 18:46:00 Test Item Value Reference Range Interpretation Comments Chloride Lvl (test code = Chloride Lvl) 106 95-109 [facility] SurgeryOmvcxjeWXAIZIWYCACK7801-90-93 18:46:00 Test Item Value Reference Range Interpretation Comments Creatinine Lvl (test code = Creatinine 0.9 0.5-1.4 Lvl) [facility] SurgeryJmpmzbnQEDKKETZNQOD0244-71-29 18:46:00 Test Item Value Reference Range Interpretation Comments Potassium Lvl (test code = Potassium 4.2 3.5-5.1 Lvl) [facility] SurgeryKhwdsdsFCVZIHXKBIHT6439-85-37 18:46:00 Test Item Value Reference Range Interpretation Comments Sodium Lvl (test code = Sodium Lvl) 139 135-145 [facility] SurgeryGpntvpvUPVCCQZMPGSW2351-74-86 18:46:00 Test Item Value Reference Range Interpretation Comments CO2 (test code = CO2) 24 24-32 [facility] SurgeryJgeoaklHBFPZYZCIWHH2347-96-02 18:46:00 Test Item Value Reference Range Interpretation Comments BUN (test code = BUN) 16 7-22 [facility] SurgeryJhqbsflNYJTMHZKQIFT7964-33-65 18:46:00 Test Item Value Reference Range Interpretation Comments Glucose Lvl (test code = Glucose Lvl) 141 70-99 [facility] SurgeryLkiytxlUTEFMNFPALHR7661-81-16 18:46:00 Test Item Value Reference Range Interpretation Comments Albumin Lvl (test code = Albumin Lvl) 3.6 3.5-5.0 [facility] SurgeryXfanijaDHXMIICNFUML5601-28-70 18:46:00 Test Item Value Reference Range Interpretation Comments Alk Phos (test code = Alk Phos) 65 39-136 [facility] SurgeryApamqodOURFUTGPPLWN7031-23-00 18:46:00 Test Item Value Reference Range Interpretation Comments Bili Total (test code = Bili Total) 0.3 0.2-1.3 [facility] SurgeryFctuvmiZZRBSDNGNBNY4410-28-51 18:46:00 Test Item Value Reference Range Interpretation Comments ALT (test code = ALT) 100 See_Comment [Auto mated message] The system which ge nerated this result transmit elizabeth reference range : <=65. The reference range was not used to interpr et this result as lukas l/abnormal. [facility] SurgeryWzgxqgrHPJEGHRWRUWL3963-39-53 18:46:00 Test Item Value Reference Range Interpretation Comments AST (test code = AST) 53 See_Comment [Auto mated message] The system which ge nerated this result transmit elizabeth reference range : <=37. The reference range was not used to interpr et this result as lukas l/abnormal. [facility] SurgeryRcxkzciCCQECZIUZQLH6793-72-51 18:46:00 Test Item Value Reference Range Interpretation Comments Total Protein (test code = Total 6.9 6.4-8.4 Protein) [facility] HospitalYpwoasjIDDYMSZKVS3093-20-81 18:46:00 Test Item Value Reference Range Interpretation Comments Eosinophils (test code = 4.2 See_Comment [A utomated message] The Eosinophils) system which ge nerated this result tra nsmitted reference range : <=4.0. The reference r mitra was not used to int erpret this result as normal/abnormal . [facility] HospitalVvwvzaaZWGJBVZKRF1928-05-13 18:46:00 Test Item Value Reference Range Interpretation Comments Segs (test code = Segs) 56.4 45.0-75.0 [facility] HospitalNiiqjinZYJVMNAZLP4149-89-73 18:46:00 Test Item Value Reference Range Interpretation Comments Monocytes (test code = Monocytes) 10.3 2.0-12.0 [facility] HospitalQreiswmAUAWNWLCFX9896-63-48 18:46:00 Test Item Value Reference Range Interpretation Comments Lymphocytes (test code = Lymphocytes) 28.0 20.0-40.0 [facility] HospitalGgolsblZLJUVCEKVB0688-36-23 18:46:00 Test Item Value Reference Range Interpretation Comments Monocytes # (test code 0.5 See_Comment [Aut omated message] The = Monocytes #) system which generated this result tra nsmitted reference range : <=0.8. The reference r mitra was not used to int erpret this result as normal/abnormal . [facility] HospitalKgqkqfnFWOJUMGWHB7769-22-66 18:46:00 Test Item Value Reference Range Interpretation Comments Basophils (test code = 1.1 See_Comment [Aut omated message] The Basophils) system which ge nerated this result tra nsmitted reference range : <=1.0. The reference r mitra was not used to int erpret this result as normal/abnormal . [facility] HospitalGmfdgdqLSVJWYPMNU8711-19-17 18:46:00 Test Item Value Reference Range Interpretation Comments Lymphocytes # (test code = Lymphocytes 1.5 1.0-5.5 #) [facility] HospitalPcvckslGSVNMOMICD6797-52-93 18:46:00 Test Item Value Reference Range Interpretation Comments Segs-Bands # (test code = Segs-Bands #) 2.9 1.5-8.1 [facility] HospitalTmpcnigNUJPQHZBAQ5752-34-65 18:46:00 Test Item Value Reference Range Interpretation Comments Eosinophils # (test code 0.2 See_Comment [A utomated message] The = Eosinophils #) system whic h generated this result tra nsmitted reference range : <=0.5. The reference r mitra was not used to int erpret this result as normal/abnormal . [facility] HospitalQpggyshDXFBRVYCSM2090-95-60 18:46:00 Test Item Value Reference Range Interpretation Comments Basophils # (test code 0.1 See_Comment [Aut omated message] The = Basophils #) system which generated this result tra nsmitted reference range : <=0.2. The reference r mitra was not used to int erpret this result as normal/abnormal . [facility] Hospit[id number] 18:46:00 Test Item Value Reference Range Interpretation Comments PT (test code = PT) 11.2 s 12.0-14.7 [facility] HospitalMyoxunmOZLZNYLCHZ2098-72-78 18:46:00 Test Item Value Reference Range Interpretation Comments INR (test code = INR) 0.82 0.85-1.17 [facility] Hospit[id number] 18:46:00 Test Item Value Reference Range Interpretation Comments PTT (test code = PTT) 28.6 s 22.9-35.8 [facility] HospitalErsgrwjDJSLTIQVGZ6082-57-60 18:46:00 Test Item Value Reference Range Interpretation Comments MPV (test code = MPV) 8.1 7.4-10.4 [facility] HospitalVjuwcqwDXLLEPZQOT0547-40-44 18:46:00 Test Item Value Reference Range Interpretation Comments Platelet (test code = Platelet) 301 133-450 [facility] HospitalRcfidtvOPRVZXQABA4263-81-93 18:46:00 Test Item Value Reference Range Interpretation Comments RDW (test code = RDW) 14.5 11.5-14.5 [facility] HospitalArhowguBKHLKSFWLK0381-51-18 18:46:00 Test Item Value Reference Range Interpretation Comments RBC (test code = RBC) 4.84 4.70-6.10 [facility] HospitalKbfomlzBRYLNBCWFG3383-89-24 18:46:00 Test Item Value Reference Range Interpretation Comments Hgb (test code = Hgb) 14.4 14.0-18.0 [facility] HospitalE[id number] 18:46:00 Test Item Value Reference Range Interpretation Comments WBC (test code = WBC) 5.2 3.7-10.4 [facility] HospitalUvvjipmIPBLOZJZMD7587-02-02 18:46:00 Test Item Value Reference Range Interpretation Comments MCH (test code = MCH) 29.8 pg 27.0-31.0 [facility] HospitalJaezukmVZNWWYKPAL2934-02-50 18:46:00 Test Item Value Reference Range Interpretation Comments MCV (test code = MCV) 92.0 80.0-94.0 [facility] HospitalPwboczyENBORNFQCM0927-60-40 18:46:00 Test Item Value Reference Range Interpretation Comments Hct (test code = Hct) 44.5 42.0-54.0 [facility] HospitalVrvfeknLHGBNKHMYM5966-75-40 18:46:00 Test Item Value Reference Range Interpretation Comments MCHC (test code = MCHC) 32.4 32.0-36.0 [facility]TloakolHKZGFTGRXT9511-98-40 18:46:00 Test Item Value Reference Range Interpretation Comments [place]-Hep C Ab (test Negative *NA*(07/22/14 code = [place]-Hep C 1:46 PM) Ab) [facility] AND [id number] 18:46:00 Test Item Value Reference Range Interpretation Comments UA Urobilinogen (test code = UA <=1.0 mg/dL 0.1-1.0 Urobilinogen) [facility] AND [id number] 18:46:00 Test Item Value Reference Range Interpretation Comments UA Sq Epi (test code = UA Sq Epi) None Seen [facility] AND [id number] 18:46:00 Test Item Value Reference Range Interpretation Comments UA Leuk Est (test Negative (07/22/14 1:46 code = UA Leuk Est) PM) [facility] AND [id number] 18:46:00 Test Item Value Reference Range Interpretation Comments UA Nitrite (test code Negative (07/22/14 1:46 = UA Nitrite) PM) [facility] AND [id number] 18:46:00 Test Item Value Reference Range Interpretation Comments UA Blood (test code = Negative (07/22/14 1:46 UA Blood) PM) [facility] AND [id number] 18:46:00 Test Item Value Reference Range Interpretation Comments UA Ketones (test code = UA Negative mg/dL Ketones) [facility] AND [id number] 18:46:00 Test Item Value Reference Range Interpretation Comments UA Bili (test code = Negative *NA*(07/22/14 UA Bili) 1:46 PM) [facility] AND [id number] 18:46:00 Test Item Value Reference Range Interpretation Comments UA Bacteria (test code = UA Occasional /HPF Bacteria) [facility] AND [id number] 18:46:00 Test Item Value Reference Range Interpretation Comments UA RBC (test code = no gt See_Comment [Automa elizabeth message] The UA RBC) system which ge nerated this result transmit elizabeth reference range : <=2. The reference range was not used to interpr et this result as lukas l/abnormal. [facility] AND [id number] 18:46:00 Test Item Value Reference Range Interpretation Comments UA WBC (test code = 1 See_Comment [Automa elizabeth message] The UA WBC) system which ge nerated this result transmit elizabeth reference range : <=5. The reference range was not used to interpr et this result as lukas l/abnormal. [facility] AND [id number] 18:46:00 Test Item Value Reference Range Interpretation Comments UA Glucose (test code = UA Glucose) 30 mg/dL [facility] AND [id number] 18:46:00 Test Item Value Reference Range Interpretation Comments UA Protein (test code = UA Negative mg/dL Protein) [facility] AND [id number] 18:46:00 Test Item Value Reference Range Interpretation Comments UA pH (test code = UA pH) 6.5 5.0-8.0 [facility] AND [id number] 18:46:00 Test Item Value Reference Range Interpretation Comments UA Turbidity (test code = Clear (07/22/14 1:46 UA Turbidity) PM) [facility] AND [id number] 18:46:00 Test Item Value Reference Range Interpretation Comments UA Spec Grav (test code = UA Spec Grav) 1.010 [facility] AND [id number] 18:46:00 Test Item Value Reference Range Interpretation Comments UA Color (test code = Light Yellow UA Color) *NA*(07/22/14 1:46 PM) [facility] [id number] 18:46:00 Test Item Value Reference Range Interpretation Comments Magnesium Lvl (test code = Magnesium 1.8 1.8-2.4 Lvl) [facility] SurgeryUyihylkTCSQDLPVLBUY9259-55-04 18:46:00 Test Item Value Reference Range Interpretation Comments AGAP (test code = AGAP) 13.2 10.0-20.0 [facility] SurgeryIfimxjsFSRXWSJSGNLT5417-82-39 18:46:00 Test Item Value Reference Range Interpretation Comments B/C Ratio (test code = B/C Ratio) 18 6-25 [facility] SurgeryQdkpzkbQYMSZCYVHSUG4135-36-21 18:46:00 Test Item Value Reference Range Interpretation Comments A/G Ratio (test code = A/G Ratio) 1.1 0.7-1.6 [facility] SurgeryAchtxolWSRRVLPLDXPX0966-10-85 18:46:00 Test Item Value Reference Range Interpretation Comments Globulin (test code = Globulin) 3.3 2.0-4.0 [facility] SurgeryNsjjaxcPRWXSDBICTPR7431-39-74 18:46:00 Test Item Value Reference Range Interpretation Comments eGFR (test code = eGFR) 99 [facility] SurgeryBondwgbCHIFCPXVCGUV1945-89-00 18:46:00 Test Item Value Reference Range Interpretation Comments Calcium Lvl (test code = Calcium Lvl) 9.0 8.5-10.5 [facility] SurgeryYhwucspBGGEXAIQVBEQ1214-10-83 18:46:00 Test Item Value Reference Range Interpretation Comments Chloride Lvl (test code = Chloride Lvl) 106 95-109 [facility] SurgeryEixcuuxOYEJRKKDGIBO7949-93-95 18:46:00 Test Item Value Reference Range Interpretation Comments Creatinine Lvl (test code = Creatinine 0.9 0.5-1.4 Lvl) [facility] Surgery[id number] 18:46:00 Test Item Value Reference Range Interpretation Comments Potassium Lvl (test code = Potassium 4.2 3.5-5.1 Lvl) [facility] SurgeryQknpgmwLZDQPCWDTYWE1168-70-90 18:46:00 Test Item Value Reference Range Interpretation Comments Sodium Lvl (test code = Sodium Lvl) 139 135-145 [facility] SurgeryFzkotfjZOAYIJMUGKZE8497-49-29 18:46:00 Test Item Value Reference Range Interpretation Comments CO2 (test code = CO2) 24 24-32 [facility] SurgeryRhtgebdQXJFQUPRXWTW9005-18-95 18:46:00 Test Item Value Reference Range Interpretation Comments BUN (test code = BUN) 16 7-22 [facility] SurgeryAvkljceZWNGLHXXOQBA0623-24-74 18:46:00 Test Item Value Reference Range Interpretation Comments Glucose Lvl (test code = Glucose Lvl) 141 70-99 [facility] SurgeryMkssbraDZIOOWGQOIAB0385-25-03 18:46:00 Test Item Value Reference Range Interpretation Comments Albumin Lvl (test code = Albumin Lvl) 3.6 3.5-5.0 [facility] Surg[id number] 18:46:00 Test Item Value Reference Range Interpretation Comments Alk Phos (test code = Alk Phos) 65 39-136 [facility] SurgeryKtapdvvSNSEKGEITBIY3970-58-16 18:46:00 Test Item Value Reference Range Interpretation Comments Bili Total (test code = Bili Total) 0.3 0.2-1.3 [facility] SurgeryJqrszduHMGCQXCTHOKQ8623-33-75 18:46:00 Test Item Value Reference Range Interpretation Comments ALT (test code = ALT) 100 See_Comment [Auto mated message] The system which ge nerated this result transmit elizabeth reference range : <=65. The reference range was not used to interpr et this result as lukas l/abnormal. [facility] SurgeryOqujftqRFNYHWWFEGDL1582-31-95 18:46:00 Test Item Value Reference Range Interpretation Comments AST (test code = AST) 53 See_Comment [Auto mated message] The system which ge nerated this result transmit elizabeth reference range : <=37. The reference range was not used to interpr et this result as lukas l/abnormal. [facility] SurgeryUtlxddgGPVKLNTNNAFV6499-22-83 18:46:00 Test Item Value Reference Range Interpretation Comments Total Protein (test code = Total 6.9 6.4-8.4 Protein) [facility] HospitalBoxvgauDDCIIVDGPU2379-30-08 18:46:00 Test Item Value Reference Range Interpretation Comments Eosinophils (test code = 4.2 See_Comment [A utomated message] The Eosinophils) system which ge nerated this result tra nsmitted reference range : <=4.0. The reference r mitra was not used to int erpret this result as normal/abnormal . [facility] HospitalZbtbtjyJZLLLVLWCP7280-97-65 18:46:00 Test Item Value Reference Range Interpretation Comments Segs (test code = Segs) 56.4 45.0-75.0 [facility] HospitalAzcaaqoGGTTAXYOCK5889-20-70 18:46:00 Test Item Value Reference Range Interpretation Comments Monocytes (test code = Monocytes) 10.3 2.0-12.0 [facility] HospitalRejtdchFPFCKGQSFA7745-11-48 18:46:00 Test Item Value Reference Range Interpretation Comments Lymphocytes (test code = Lymphocytes) 28.0 20.0-40.0 [facility] HospitalUsatynkEEEMHDPSFM4515-41-07 18:46:00 Test Item Value Reference Range Interpretation Comments Monocytes # (test code 0.5 See_Comment [Aut omated message] The = Monocytes #) system which generated this result tra nsmitted reference range : <=0.8. The reference r mitra was not used to int erpret this result as normal/abnormal . [facility] HospitalKorrkfyOQXFKXVHOI8641-44-33 18:46:00 Test Item Value Reference Range Interpretation Comments Basophils (test code = 1.1 See_Comment [Aut omated message] The Basophils) system which ge nerated this result tra nsmitted reference range : <=1.0. The reference r mitra was not used to int erpret this result as normal/abnormal . [facility] HospitalQnfvlkmBGWDIGYVHO6434-35-31 18:46:00 Test Item Value Reference Range Interpretation Comments Lymphocytes # (test code = Lymphocytes 1.5 1.0-5.5 #) [facility] HospitalZbrrpegXVZEKKLQWI8821-52-61 18:46:00 Test Item Value Reference Range Interpretation Comments Segs-Bands # (test code = Segs-Bands #) 2.9 1.5-8.1 [facility] HospitalUslphfuPXFQHIMEGV4244-00-71 18:46:00 Test Item Value Reference Range Interpretation Comments Eosinophils # (test code 0.2 See_Comment [A utomated message] The = Eosinophils #) system whic h generated this result tra nsmitted reference range : <=0.5. The reference r mitra was not used to int erpret this result as normal/abnormal . [facility] HospitalZzgeyttTWQDUQOLWF9052-78-51 18:46:00 Test Item Value Reference Range Interpretation Comments Basophils # (test code 0.1 See_Comment [Aut omated message] The = Basophils #) system which generated this result tra nsmitted reference range : <=0.2. The reference r mitra was not used to int erpret this result as normal/abnormal . [facility] HospitalErnmoyeUYHWFOMNZO6275-16-03 18:46:00 Test Item Value Reference Range Interpretation Comments PT (test code = PT) 11.2 s 12.0-14.7 [facility] HospitalNqmgzgvBJULDIXJFM1406-26-24 18:46:00 Test Item Value Reference Range Interpretation Comments INR (test code = INR) 0.82 0.85-1.17 [facility] Hospit[id number] 18:46:00 Test Item Value Reference Range Interpretation Comments PTT (test code = PTT) 28.6 s 22.9-35.8 [facility] HospitalGstqlnuEJKEBWAHTR4382-21-66 18:46:00 Test Item Value Reference Range Interpretation Comments MPV (test code = MPV) 8.1 7.4-10.4 [facility] HospitalNvxuruwZGKKCTOYEP5522-93-46 18:46:00 Test Item Value Reference Range Interpretation Comments Platelet (test code = Platelet) 301 133-450 [facility] HospitalRnrhkciDZNVWNHXYS4132-66-10 18:46:00 Test Item Value Reference Range Interpretation Comments RDW (test code = RDW) 14.5 11.5-14.5 [facility]UifczpnEOCAZQZCDU0258-97-22 18:46:00 Test Item Value Reference Range Interpretation Comments RBC (test code = RBC) 4.84 4.70-6.10 [facility] HospitalVlmknwkACASKGAHNB5846-31-99 18:46:00 Test Item Value Reference Range Interpretation Comments Hgb (test code = Hgb) 14.4 14.0-18.0 [facility] HospitalYadcbyuBLODMSLZGP2913-84-36 18:46:00 Test Item Value Reference Range Interpretation Comments WBC (test code = WBC) 5.2 3.7-10.4 [facility] HospitalEvcuplxPUATCRLZHM6824-69-06 18:46:00 Test Item Value Reference Range Interpretation Comments MCH (test code = MCH) 29.8 pg 27.0-31.0 [facility] HospitalBmjekycLXCNIPFMXJ5843-02-68 18:46:00 Test Item Value Reference Range Interpretation Comments MCV (test code = MCV) 92.0 80.0-94.0 [facility] HospitalEyvxbklAMZXMJLXWD1091-55-49 18:46:00 Test Item Value Reference Range Interpretation Comments Hct (test code = Hct) 44.5 42.0-54.0 [facility] HospitalKtntoskUZVLIEUVWP3150-42-01 18:46:00 Test Item Value Reference Range Interpretation Comments MCHC (test code = MCHC) 32.4 32.0-36.0 [facility] CenterMkcgkduFZGPHKRZJY2386-37-99 18:46:00 Test Item Value Reference Range Interpretation Comments [place]-Hep C Ab (test Negative *NA*(07/22/14 code = [place]-Hep C 1:46 PM) Ab) [facility] AND [id number] 18:46:00 Test Item Value Reference Range Interpretation Comments UA Urobilinogen (test code = UA <=1.0 mg/dL 0.1-1.0 Urobilinogen) [facility] AND [id number] 18:46:00 Test Item Value Reference Range Interpretation Comments UA Sq Epi (test code = UA Sq Epi) None Seen [facility] AND [id number] 18:46:00 Test Item Value Reference Range Interpretation Comments UA Leuk Est (test Negative (07/22/14 1:46 code = UA Leuk Est) PM) [facility] AND [id number] 18:46:00 Test Item Value Reference Range Interpretation Comments UA Nitrite (test code Negative (07/22/14 1:46 = UA Nitrite) PM) [facility] AND [id number] 18:46:00 Test Item Value Reference Range Interpretation Comments UA Blood (test code = Negative (07/22/14 1:46 UA Blood) PM) [facility] AND [id number] 18:46:00 Test Item Value Reference Range Interpretation Comments UA Ketones (test code = UA Negative mg/dL Ketones) [facility] AND [id number] 18:46:00 Test Item Value Reference Range Interpretation Comments UA Bili (test code = Negative *NA*(07/22/14 UA Bili) 1:46 PM) [facility] AND [id number] 18:46:00 Test Item Value Reference Range Interpretation Comments UA Bacteria (test code = UA Occasional /HPF Bacteria) [facility] AND [id number] 18:46:00 Test Item Value Reference Range Interpretation Comments UA RBC (test code = no gt See_Comment [Automa elizabeth message] The UA RBC) system which ge nerated this result transmit elizabeth reference range : <=2. The reference range was not used to interpr et this result as lukas l/abnormal. [facility] AND [id number] 18:46:00 Test Item Value Reference Range Interpretation Comments UA WBC (test code = 1 See_Comment [Automa elizabeth message] The UA WBC) system which ge nerated this result transmit elizabeth reference range : <=5. The reference range was not used to interpr et this result as lukas l/abnormal. [facility] AND [id number] 18:46:00 Test Item Value Reference Range Interpretation Comments UA Glucose (test code = UA Glucose) 30 mg/dL [facility] AND [id number] 18:46:00 Test Item Value Reference Range Interpretation Comments UA Protein (test code = UA Negative mg/dL Protein) [facility] AND [id number] 18:46:00 Test Item Value Reference Range Interpretation Comments UA pH (test code = UA pH) 6.5 5.0-8.0 [facility] AND [id number] 18:46:00 Test Item Value Reference Range Interpretation Comments UA Turbidity (test code = Clear (07/22/14 1:46 UA Turbidity) PM) [facility] [id number] 18:46:00 Test Item Value Reference Range Interpretation Comments UA Spec Grav (test code = UA Spec Grav) 1.010 [facility] AND [id number] 18:46:00 Test Item Value Reference Range Interpretation Comments UA Color (test code = Light Yellow UA Color) *NA*(07/22/14 1:46 PM) [facility]CHEM [id number] 18:46:00 Test Item Value Reference Range Interpretation Comments Magnesium Lvl (test code = Magnesium 1.8 1.8-2.4 Lvl) [facility] SurgeryJajotdwJEVBFHTFZTGN4525-76-84 18:46:00 Test Item Value Reference Range Interpretation Comments AGAP (test code = AGAP) 13.2 10.0-20.0 [facility] SurgeryZtyiwndAJHBOBPNNMVY8007-38-10 18:46:00 Test Item Value Reference Range Interpretation Comments B/C Ratio (test code = B/C Ratio) 18 6-25 [facility] SurgeryVgiqdsyUQUBCZTHWBFE4969-94-78 18:46:00 Test Item Value Reference Range Interpretation Comments A/G Ratio (test code = A/G Ratio) 1.1 0.7-1.6 [facility] SurgeryNkendtnWRUHHZKIOTQA2049-79-10 18:46:00 Test Item Value Reference Range Interpretation Comments Globulin (test code = Globulin) 3.3 2.0-4.0 [facility] SurgeryUljkexvYDWFDEVPXMTP1188-47-60 18:46:00 Test Item Value Reference Range Interpretation Comments eGFR (test code = eGFR) 99 [facility] SurgeryGtrwreySRYGUTEPJWZD5787-77-14 18:46:00 Test Item Value Reference Range Interpretation Comments Calcium Lvl (test code = Calcium Lvl) 9.0 8.5-10.5 [facility] SurgerySeedpyoXIYYDYNXRZUJ7711-34-55 18:46:00 Test Item Value Reference Range Interpretation Comments Chloride Lvl (test code = Chloride Lvl) 106 95-109 [facility] SurgeryBkoxqtsRPVNJAGFTZED0842-97-43 18:46:00 Test Item Value Reference Range Interpretation Comments Creatinine Lvl (test code = Creatinine 0.9 0.5-1.4 Lvl) [facility] SurgeryTggajlhWETRHDXBSROG2568-38-02 18:46:00 Test Item Value Reference Range Interpretation Comments Potassium Lvl (test code = Potassium 4.2 3.5-5.1 Lvl) [facility] SurgeryWvftzwcPFJUACNDPCPD8417-87-53 18:46:00 Test Item Value Reference Range Interpretation Comments Sodium Lvl (test code = Sodium Lvl) 139 135-145 [facility] SurgeryKtnqxozYCVAIEZMJVBT8301-77-99 18:46:00 Test Item Value Reference Range Interpretation Comments CO2 (test code = CO2) 24 24-32 [facility] SurgeryNyfmfldJKCPDCILFYDA3050-11-65 18:46:00 Test Item Value Reference Range Interpretation Comments BUN (test code = BUN) 16 7-22 [facility] SurgeryMmxtvkaYCUDZMUCPERV3047-73-98 18:46:00 Test Item Value Reference Range Interpretation Comments Glucose Lvl (test code = Glucose Lvl) 141 70-99 [facility] SurgeryXzleseiMONQTEKMQYGZ1612-39-80 18:46:00 Test Item Value Reference Range Interpretation Comments Albumin Lvl (test code = Albumin Lvl) 3.6 3.5-5.0 [facility] SurgeryRaucwnsADBRCUXZZPCX3792-54-21 18:46:00 Test Item Value Reference Range Interpretation Comments Alk Phos (test code = Alk Phos) 65 39-136 [facility] SurgeryXqiricaBVFUWILTZYWB3429-43-54 18:46:00 Test Item Value Reference Range Interpretation Comments Bili Total (test code = Bili Total) 0.3 0.2-1.3 [facility] SurgeryDvyftsrNFWURJGYZHTY3239-04-49 18:46:00 Test Item Value Reference Range Interpretation Comments ALT (test code = ALT) 100 See_Comment [Auto mated message] The system which ge nerated this result transmit elizabeth reference range : <=65. The reference range was not used to interpr et this result as lukas l/abnormal. [facility] SurgeryXdcfgboOQFXYTLIZCCX1784-07-51 18:46:00 Test Item Value Reference Range Interpretation Comments AST (test code = AST) 53 See_Comment [Auto mated message] The system which ge nerated this result transmit elizabeth reference range : <=37. The reference range was not used to interpr et this result as lukas l/abnormal. [facility] SurgeryIlrafmfGLMDEODEREDP6211-82-22 18:46:00 Test Item Value Reference Range Interpretation Comments Total Protein (test code = Total 6.9 6.4-8.4 Protein) [facility] HospitalQacswbaVWNNTDCANC3208-64-46 18:46:00 Test Item Value Reference Range Interpretation Comments Eosinophils (test code = 4.2 See_Comment [A utomated message] The Eosinophils) system which ge nerated this result tra nsmitted reference range : <=4.0. The reference r mitra was not used to int erpret this result as normal/abnormal . [facility] HospitalUhoplpaYHPTEDMEDS0913-95-72 18:46:00 Test Item Value Reference Range Interpretation Comments Segs (test code = Segs) 56.4 45.0-75.0 [facility] HospitalErsczhbRAWYJKZNIE3133-25-93 18:46:00 Test Item Value Reference Range Interpretation Comments Monocytes (test code = Monocytes) 10.3 2.0-12.0 [facility] HospitalEjxpkrhBSSPBJGLPP3697-23-36 18:46:00 Test Item Value Reference Range Interpretation Comments Lymphocytes (test code = Lymphocytes) 28.0 20.0-40.0 [facility] HospitalIyrrpptZUQUZNUCXH5116-03-48 18:46:00 Test Item Value Reference Range Interpretation Comments Monocytes # (test code 0.5 See_Comment [Aut omated message] The = Monocytes #) system which generated this result tra nsmitted reference range : <=0.8. The reference r mitra was not used to int erpret this result as normal/abnormal . [facility] HospitalRicigxnIAFKJAMZUS8123-45-17 18:46:00 Test Item Value Reference Range Interpretation Comments Basophils (test code = 1.1 See_Comment [Aut omated message] The Basophils) system which ge nerated this result tra nsmitted reference range : <=1.0. The reference r mitra was not used to int erpret this result as normal/abnormal . [facility] HospitalXffaffpKPFJBBGMIV5729-10-10 18:46:00 Test Item Value Reference Range Interpretation Comments Lymphocytes # (test code = Lymphocytes 1.5 1.0-5.5 #) [facility] HospitalEwmvnmqYDJWEUXVMS0163-60-51 18:46:00 Test Item Value Reference Range Interpretation Comments Segs-Bands # (test code = Segs-Bands #) 2.9 1.5-8.1 [facility] HospitalEsatwstXEIIREBRRN2988-84-13 18:46:00 Test Item Value Reference Range Interpretation Comments Eosinophils # (test code 0.2 See_Comment [A utomated message] The = Eosinophils #) system whic h generated this result tra nsmitted reference range : <=0.5. The reference r mitra was not used to int erpret this result as normal/abnormal . [facility] HospitalVjqfpmsRNRYSJUEAE1688-24-18 18:46:00 Test Item Value Reference Range Interpretation Comments Basophils # (test code 0.1 See_Comment [Aut omated message] The = Basophils #) system which generated this result tra nsmitted reference range : <=0.2. The reference r mitra was not used to int erpret this result as normal/abnormal . [facility] HospitalHsdkogiRYKKAUKYLA7293-44-24 18:46:00 Test Item Value Reference Range Interpretation Comments PT (test code = PT) 11.2 s 12.0-14.7 [facility] HospitalSurhyiiGFJZKGNYKA0726-83-21 18:46:00 Test Item Value Reference Range Interpretation Comments INR (test code = INR) 0.82 0.85-1.17 [facility] HospitalGxxtavzUMVYXIFBXT2954-32-83 18:46:00 Test Item Value Reference Range Interpretation Comments PTT (test code = PTT) 28.6 s 22.9-35.8 [facility] HospitalSluilyvVEWRWPBZYZ8294-33-51 18:46:00 Test Item Value Reference Range Interpretation Comments MPV (test code = MPV) 8.1 7.4-10.4 [facility] HospitalAihsuojRBAGBFWEWB5305-54-31 18:46:00 Test Item Value Reference Range Interpretation Comments Platelet (test code = Platelet) 301 133-450 [facility] HospitalBdhlblqUXJCYEIKHU4454-94-00 18:46:00 Test Item Value Reference Range Interpretation Comments RDW (test code = RDW) 14.5 11.5-14.5 [facility] HospitalZypbmvlJIOZNFKFOW4389-16-91 18:46:00 Test Item Value Reference Range Interpretation Comments RBC (test code = RBC) 4.84 4.70-6.10 [facility] HospitalUqyceeyFBTVXVKJAE5654-67-68 18:46:00 Test Item Value Reference Range Interpretation Comments Hgb (test code = Hgb) 14.4 14.0-18.0 [facility] HospitalKjutdfkXSVDNFONQZ2497-05-41 18:46:00 Test Item Value Reference Range Interpretation Comments WBC (test code = WBC) 5.2 3.7-10.4 [facility]JjxfjwrPEISXQQPPY6980-18-61 18:46:00 Test Item Value Reference Range Interpretation Comments MCH (test code = MCH) 29.8 pg 27.0-31.0 [facility]CqwvehxMTSXFVPAUX4140-42-49 18:46:00 Test Item Value Reference Range Interpretation Comments MCV (test code = MCV) 92.0 80.0-94.0 [facility] HospitalUrexemaFVMEUHMMEW3819-65-28 18:46:00 Test Item Value Reference Range Interpretation Comments Hct (test code = Hct) 44.5 42.0-54.0 [facility] CenterEslblwcRTKJMTFFNL4271-08-90 18:46:00 Test Item Value Reference Range Interpretation Comments MCHC (test code = MCHC) 32.4 32.0-36.0 [facility] CenterSjkuhjaZJECULTTYK0085-14-12 18:46:00 Test Item Value Reference Range Interpretation Comments [place]-Hep C Ab (test Negative *NA*(07/22/14 code = [place]-Hep C 1:46 PM) Ab) [facility] AND [id number] 18:46:00 Test Item Value Reference Range Interpretation Comments UA Urobilinogen (test code = UA <=1.0 mg/dL 0.1-1.0 Urobilinogen) [facility] AND [id number] 18:46:00 Test Item Value Reference Range Interpretation Comments UA Sq Epi (test code = UA Sq Epi) None Seen [facility] AND [id number] 18:46:00 Test Item Value Reference Range Interpretation Comments UA Leuk Est (test Negative (07/22/14 1:46 code = UA Leuk Est) PM) [facility] AND [id number] 18:46:00 Test Item Value Reference Range Interpretation Comments UA Nitrite (test code Negative (07/22/14 1:46 = UA Nitrite) PM) [facility] AND [id number] 18:46:00 Test Item Value Reference Range Interpretation Comments UA Blood (test code = Negative (07/22/14 1:46 UA Blood) PM) [facility] AND [id number] 18:46:00 Test Item Value Reference Range Interpretation Comments UA Ketones (test code = UA Negative mg/dL Ketones) [facility] AND [id number] 18:46:00 Test Item Value Reference Range Interpretation Comments UA Bili (test code = Negative *NA*(07/22/14 UA Bili) 1:46 PM) [facility] AND [id number] 18:46:00 Test Item Value Reference Range Interpretation Comments UA Bacteria (test code = UA Occasional /HPF Bacteria) [facility] AND [id number] 18:46:00 Test Item Value Reference Range Interpretation Comments UA RBC (test code = no gt See_Comment [Automa elizabeth message] The UA RBC) system which ge nerated this result transmit elizabeth reference range : <=2. The reference range was not used to interpr et this result as lukas l/abnormal. [facility] AND [id number] 18:46:00 Test Item Value Reference Range Interpretation Comments UA WBC (test code = 1 See_Comment [Automa elizabeth message] The UA WBC) system which ge nerated this result transmit elizabeth reference range : <=5. The reference range was not used to interpr et this result as lukas l/abnormal. [facility] AND [id number] 18:46:00 Test Item Value Reference Range Interpretation Comments UA Glucose (test code = UA Glucose) 30 mg/dL [facility] AND [id number] 18:46:00 Test Item Value Reference Range Interpretation Comments UA Protein (test code = UA Negative mg/dL Protein) [facility] AND [id number] 18:46:00 Test Item Value Reference Range Interpretation Comments UA pH (test code = UA pH) 6.5 5.0-8.0 [facility] AND [id number] 18:46:00 Test Item Value Reference Range Interpretation Comments UA Turbidity (test code = Clear (07/22/14 1:46 UA Turbidity) PM) [facility] AND [id number] 18:46:00 Test Item Value Reference Range Interpretation Comments UA Spec Grav (test code = UA Spec Grav) 1.010 [facility] AND [id number] 18:46:00 Test Item Value Reference Range Interpretation Comments UA Color (test code = Light Yellow UA Color) *NA*(07/22/14 1:46 PM) [facility]2015-06-09 18:46:00 Test Item Value Reference Range Interpretation Comments Magnesium Lvl (test code = Magnesium 1.8 1.8-2.4 Lvl) [facility] SurgeryDswmqfjRUFREBJJCTDT6051-06-02 18:46:00 Test Item Value Reference Range Interpretation Comments AGAP (test code = AGAP) 13.2 10.0-20.0 [facility] SurgeryBzqlghlFNDTWCUHYPNN2589-96-29 18:46:00 Test Item Value Reference Range Interpretation Comments B/C Ratio (test code = B/C Ratio) 18 6-25 [facility] SurgeryKixdikyQTZZMLEOTMOT8913-02-98 18:46:00 Test Item Value Reference Range Interpretation Comments A/G Ratio (test code = A/G Ratio) 1.1 0.7-1.6 [facility] SurgeryBfihxkrXXXVSVXKNXQR3666-36-54 18:46:00 Test Item Value Reference Range Interpretation Comments Globulin (test code = Globulin) 3.3 2.0-4.0 [facility] SurgeryVjsfrqdXQJUVIUQLMSV3217-05-26 18:46:00 Test Item Value Reference Range Interpretation Comments eGFR (test code = eGFR) 99 [facility] SurgeryIzmcqkmNKLPHRFRMOUF4625-28-15 18:46:00 Test Item Value Reference Range Interpretation Comments Calcium Lvl (test code = Calcium Lvl) 9.0 8.5-10.5 [facility] SurgeryQaiztpkSLPFKIKCOBBM6481-54-04 18:46:00 Test Item Value Reference Range Interpretation Comments Chloride Lvl (test code = Chloride Lvl) 106 95-109 [facility] SurgeryAokrcyaHJEUCNDDWAWT9324-90-89 18:46:00 Test Item Value Reference Range Interpretation Comments Creatinine Lvl (test code = Creatinine 0.9 0.5-1.4 Lvl) [facility] SurgeryKltydfuFDBDTZENWGNX4853-54-00 18:46:00 Test Item Value Reference Range Interpretation Comments Potassium Lvl (test code = Potassium 4.2 3.5-5.1 Lvl) [facility] SurgeryDvlzjzePCGHSXKJUWLX4054-23-35 18:46:00 Test Item Value Reference Range Interpretation Comments Sodium Lvl (test code = Sodium Lvl) 139 135-145 [facility] SurgeryNzpglffGWLQTZVEJCHB4490-18-16 18:46:00 Test Item Value Reference Range Interpretation Comments CO2 (test code = CO2) 24 24-32 [facility] SurgeryOhdvorrXCPTQZGXBMEO8296-73-76 18:46:00 Test Item Value Reference Range Interpretation Comments BUN (test code = BUN) 16 7-22 [facility] SurgeryWwsiqsrFZMGVNAJHLDY4647-66-94 18:46:00 Test Item Value Reference Range Interpretation Comments Glucose Lvl (test code = Glucose Lvl) 141 70-99 [facility] SurgeryYkhqlpeIGVJSHIIDTIK3236-86-15 18:46:00 Test Item Value Reference Range Interpretation Comments Albumin Lvl (test code = Albumin Lvl) 3.6 3.5-5.0 [facility] SurgeryFjlytzrYLHPEHRNKDEW2200-02-88 18:46:00 Test Item Value Reference Range Interpretation Comments Alk Phos (test code = Alk Phos) 65 39-136 [facility] SurgeryKnwpgnxVBXBXGUNLJNR3801-26-89 18:46:00 Test Item Value Reference Range Interpretation Comments Bili Total (test code = Bili Total) 0.3 0.2-1.3 [facility] SurgeryOefboelFVEMPHGDLXMY0013-17-99 18:46:00 Test Item Value Reference Range Interpretation Comments ALT (test code = ALT) 100 See_Comment [Auto mated message] The system which ge nerated this result transmit elizabeth reference range : <=65. The reference range was not used to interpr et this result as lukas l/abnormal. [facility] SurgeryCiymuppVLSRQKHWDOGX5086-56-67 18:46:00 Test Item Value Reference Range Interpretation Comments AST (test code = AST) 53 See_Comment [Auto mated message] The system which ge nerated this result transmit elizabeth reference range : <=37. The reference range was not used to interpr et this result as lukas l/abnormal. [facility] SurgeryEohtbuhOJXVXXTJNJYA1484-45-81 18:46:00 Test Item Value Reference Range Interpretation Comments Total Protein (test code = Total 6.9 6.4-8.4 Protein) [facility] HospitalIwnyfelFJDCKLCHXV5031-72-41 18:46:00 Test Item Value Reference Range Interpretation Comments Eosinophils (test code = 4.2 See_Comment [A utomated message] The Eosinophils) system which ge nerated this result tra nsmitted reference range : <=4.0. The reference r mitra was not used to int erpret this result as normal/abnormal . [facility] HospitalZmbstccBOUCZAALQT2976-46-27 18:46:00 Test Item Value Reference Range Interpretation Comments Segs (test code = Segs) 56.4 45.0-75.0 [facility] HospitalWnnxmbaLOPWJXJWTE5245-08-31 18:46:00 Test Item Value Reference Range Interpretation Comments Monocytes (test code = Monocytes) 10.3 2.0-12.0 [facility] HospitalSvtwtmzHQKSKSFDFD7367-09-20 18:46:00 Test Item Value Reference Range Interpretation Comments Lymphocytes (test code = Lymphocytes) 28.0 20.0-40.0 [facility] HospitalFedzbjtEVODDEONXH3696-86-17 18:46:00 Test Item Value Reference Range Interpretation Comments Monocytes # (test code 0.5 See_Comment [Aut omated message] The = Monocytes #) system which generated this result tra nsmitted reference range : <=0.8. The reference r mitra was not used to int erpret this result as normal/abnormal . [facility] HospitalWigouoeJGRFSWIQRI5747-51-32 18:46:00 Test Item Value Reference Range Interpretation Comments Basophils (test code = 1.1 See_Comment [Aut omated message] The Basophils) system which ge nerated this result tra nsmitted reference range : <=1.0. The reference r mitra was not used to int erpret this result as normal/abnormal . [facility] HospitalRghkestUAQCHNVZBQ8234-72-79 18:46:00 Test Item Value Reference Range Interpretation Comments Lymphocytes # (test code = Lymphocytes 1.5 1.0-5.5 #) [facility] HospitalZdtifheEQYGGUTOPV7811-37-31 18:46:00 Test Item Value Reference Range Interpretation Comments Segs-Bands # (test code = Segs-Bands #) 2.9 1.5-8.1 [facility] HospitalNfbfynyEIAZOWILGN5262-49-48 18:46:00 Test Item Value Reference Range Interpretation Comments Eosinophils # (test code 0.2 See_Comment [A utomated message] The = Eosinophils #) system whic h generated this result tra nsmitted reference range : <=0.5. The reference r mitra was not used to int erpret this result as normal/abnormal . [facility] HospitalZwswkjgPUDWIRHLOC5031-83-70 18:46:00 Test Item Value Reference Range Interpretation Comments Basophils # (test code 0.1 See_Comment [Aut omated message] The = Basophils #) system which generated this result tra nsmitted reference range : <=0.2. The reference r mitra was not used to int erpret this result as normal/abnormal . [facility] HospitalAtemncwQUBRMQGNSW6709-11-15 18:46:00 Test Item Value Reference Range Interpretation Comments PT (test code = PT) 11.2 s 12.0-14.7 [place] 622875-06-09 18:46:00 Test Item Value Reference Range Interpretation Comments INR (test code = INR) 0.82 0.85-1.17 [place] [address]-06-09 18:46:00 Test Item Value Reference Range Interpretation Comments PTT (test code = PTT) 28.6 s 22.9-35.8 [facility] HospitalNibsiraTDAOETSXID4352-24-26 18:46:00 Test Item Value Reference Range Interpretation Comments MPV (test code = MPV) 8.1 7.4-10.4 [place] [address]-06-09 18:46:00 Test Item Value Reference Range Interpretation Comments Platelet (test code = Platelet) 301 133-450 [facility] HospitalTbjnxvlWKIGCVNCVF7156-21-06 18:46:00 Test Item Value Reference Range Interpretation Comments RDW (test code = RDW) 14.5 11.5-14.5 [facility] HospitalDlsuqggKSHIIGBZSK7062-35-40 18:46:00 Test Item Value Reference Range Interpretation Comments RBC (test code = RBC) 4.84 4.70-6.10 [facility] HospitalQmpjjrfDEKYKZFDLX9162-42-31 18:46:00 Test Item Value Reference Range Interpretation Comments Hgb (test code = Hgb) 14.4 14.0-18.0 [place] 622875-06-09 18:46:00 Test Item Value Reference Range Interpretation Comments WBC (test code = WBC) 5.2 3.7-10.4 [place] [address]-06-09 18:46:00 Test Item Value Reference Range Interpretation Comments MCH (test code = MCH) 29.8 pg 27.0-31.0 [facility] HospitalYauiidqMXGLQMCCVQ8034-88-25 18:46:00 Test Item Value Reference Range Interpretation Comments MCV (test code = MCV) 92.0 80.0-94.0 [place] [address]-06-09 18:46:00 Test Item Value Reference Range Interpretation Comments Hct (test code = Hct) 44.5 42.0-54.0 [facility] CenterRxxxzovAOLSBRMBRT8538-78-07 18:46:00 Test Item Value Reference Range Interpretation Comments MCHC (test code = MCHC) 32.4 32.0-36.0 [facility] CenterGdrqfliGWGEJLYAKC3208-60-01 18:46:00 Test Item Value Reference Range Interpretation Comments [place]-Hep C Ab (test Negative *NA*(07/22/14 code = [place]-Hep C 1:46 PM) Ab) [facility] AND [id number] 18:46:00 Test Item Value Reference Range Interpretation Comments UA Urobilinogen (test code = UA <=1.0 mg/dL 0.1-1.0 Urobilinogen) [facility] AND [id number] 18:46:00 Test Item Value Reference Range Interpretation Comments UA Sq Epi (test code = UA Sq Epi) None Seen [facility] AND [id number] 18:46:00 Test Item Value Reference Range Interpretation Comments UA Leuk Est (test Negative (07/22/14 1:46 code = UA Leuk Est) PM) [facility] AND [id number] 18:46:00 Test Item Value Reference Range Interpretation Comments UA Nitrite (test code Negative (07/22/14 1:46 = UA Nitrite) PM) [facility] AND [id number] 18:46:00 Test Item Value Reference Range Interpretation Comments UA Blood (test code = Negative (07/22/14 1:46 UA Blood) PM) [facility] AND [id number] 18:46:00 Test Item Value Reference Range Interpretation Comments UA Ketones (test code = UA Negative mg/dL Ketones) [facility] AND [id number] 18:46:00 Test Item Value Reference Range Interpretation Comments UA Bili (test code = Negative *NA*(07/22/14 UA Bili) 1:46 PM) [facility] AND [id number] 18:46:00 Test Item Value Reference Range Interpretation Comments UA Bacteria (test code = UA Occasional /HPF Bacteria) [facility] AND [id number] 18:46:00 Test Item Value Reference Range Interpretation Comments UA RBC (test code = no gt See_Comment [Automa elizabeth message] The UA RBC) system which ge nerated this result transmit elizabeth reference range : <=2. The reference range was not used to interpr et this result as lukas l/abnormal. [facility] AND [id number] 18:46:00 Test Item Value Reference Range Interpretation Comments UA WBC (test code = 1 See_Comment [Automa elizabeth message] The UA WBC) system which ge nerated this result transmit elizabeth reference range : <=5. The reference range was not used to interpr et this result as lukas l/abnormal. [facility] [id number] 18:46:00 Test Item Value Reference Range Interpretation Comments UA Glucose (test code = UA Glucose) 30 mg/dL [facility] AND [id number] 18:46:00 Test Item Value Reference Range Interpretation Comments UA Protein (test code = UA Negative mg/dL Protein) [facility] AND [id number] 18:46:00 Test Item Value Reference Range Interpretation Comments UA pH (test code = UA pH) 6.5 5.0-8.0 [facility] AND [id number] 18:46:00 Test Item Value Reference Range Interpretation Comments UA Turbidity (test code = Clear (07/22/14 1:46 UA Turbidity) PM) [facility] AND [id number] 18:46:00 Test Item Value Reference Range Interpretation Comments UA Spec Grav (test code = UA Spec Grav) 1.010 [facility] AND [id number] 18:46:00 Test Item Value Reference Range Interpretation Comments UA Color (test code = Light Yellow UA Color) *NA*(07/22/14 1:46 PM) [facility] [id number] 18:46:00 Test Item Value Reference Range Interpretation Comments Magnesium Lvl (test code = Magnesium 1.8 1.8-2.4 Lvl) [facility]IwapytyCYTPCGQLZYWG1888-50-22 18:46:00 Test Item Value Reference Range Interpretation Comments AGAP (test code = AGAP) 13.2 10.0-20.0 [facility]UgjscvvOOYHOZYGUMUB1974-92-53 18:46:00 Test Item Value Reference Range Interpretation Comments B/C Ratio (test code = B/C Ratio) 18 6-25 [facility] SystemKzwbniyWJJKMQTWKKEG8024-31-34 18:46:00 Test Item Value Reference Range Interpretation Comments A/G Ratio (test code = A/G Ratio) 1.1 0.7-1.6 [facility] SurgeryUwosodrNHLTXNIXXXFO0189-01-07 18:46:00 Test Item Value Reference Range Interpretation Comments Globulin (test code = Globulin) 3.3 2.0-4.0 [facility] SurgeryIoctlowWVXYGKIDRGTJ7453-46-92 18:46:00 Test Item Value Reference Range Interpretation Comments eGFR (test code = eGFR) 99 [facility] SurgeryWsyqrfeMHFQAIIUOCAX5246-79-35 18:46:00 Test Item Value Reference Range Interpretation Comments Calcium Lvl (test code = Calcium Lvl) 9.0 8.5-10.5 [facility] SurgeryGcapvulQCIAVPTDTXKZ3727-89-17 18:46:00 Test Item Value Reference Range Interpretation Comments Chloride Lvl (test code = Chloride Lvl) 106 95-109 [facility] SurgeryOiuxemcGVRCGEPXGKZM9911-58-47 18:46:00 Test Item Value Reference Range Interpretation Comments Creatinine Lvl (test code = Creatinine 0.9 0.5-1.4 Lvl) [facility] SurgeryUoibjivRFXDBMKMVHSP6560-63-37 18:46:00 Test Item Value Reference Range Interpretation Comments Potassium Lvl (test code = Potassium 4.2 3.5-5.1 Lvl) [facility] SurgeryWdcvvbmVSKSHOMMPOAE2969-23-83 18:46:00 Test Item Value Reference Range Interpretation Comments Sodium Lvl (test code = Sodium Lvl) 139 135-145 [facility] SurgeryUkyprukOMLJMLQKRAVC5594-12-57 18:46:00 Test Item Value Reference Range Interpretation Comments CO2 (test code = CO2) 24 24-32 [facility] SurgeryGpdjgveKIGAWEYSBWEQ4215-85-31 18:46:00 Test Item Value Reference Range Interpretation Comments BUN (test code = BUN) 16 7-22 [facility] SurgeryJtmshicMQHQVCYWWXOO4051-86-96 18:46:00 Test Item Value Reference Range Interpretation Comments Glucose Lvl (test code = Glucose Lvl) 141 70-99 [facility] SurgerySkfummtOILZCDKCNVJE0131-34-71 18:46:00 Test Item Value Reference Range Interpretation Comments Albumin Lvl (test code = Albumin Lvl) 3.6 3.5-5.0 [facility] SurgeryBstqrdnBMEFNSIKPIRO7688-28-60 18:46:00 Test Item Value Reference Range Interpretation Comments Alk Phos (test code = Alk Phos) 65 39-136 [facility] SurgeryIyqakwlKWWSEDJURJZZ5978-95-36 18:46:00 Test Item Value Reference Range Interpretation Comments Bili Total (test code = Bili Total) 0.3 0.2-1.3 [facility] SurgeryMgefyvdWMIELLDJXHVT4257-02-73 18:46:00 Test Item Value Reference Range Interpretation Comments ALT (test code = ALT) 100 See_Comment [Auto mated message] The system which ge nerated this result transmit elizabeth reference range : <=65. The reference range was not used to interpr et this result as lukas l/abnormal. [facility] SurgeryMclhlznJXALRLGZMBIA7921-29-11 18:46:00 Test Item Value Reference Range Interpretation Comments AST (test code = AST) 53 See_Comment [Auto mated message] The system which ge nerated this result transmit elizabeth reference range : <=37. The reference range was not used to interpr et this result as lukas l/abnormal. [facility] SurgeryZimgpatVPQRURWMQQTD9296-65-05 18:46:00 Test Item Value Reference Range Interpretation Comments Total Protein (test code = Total 6.9 6.4-8.4 Protein) [facility] HospitalMdoxqqoJXRMCCOQZF1724-21-06 18:46:00 Test Item Value Reference Range Interpretation Comments Eosinophils (test code = 4.2 See_Comment [A utomated message] The Eosinophils) system which ge nerated this result tra nsmitted reference range : <=4.0. The reference r mitra was not used to int erpret this result as normal/abnormal . [facility] HospitalFaqlxyhGCHBXFASHH6902-14-70 18:46:00 Test Item Value Reference Range Interpretation Comments Segs (test code = Segs) 56.4 45.0-75.0 [facility] HospitalEysgbeqGCWXGXCLDA4104-71-16 18:46:00 Test Item Value Reference Range Interpretation Comments Monocytes (test code = Monocytes) 10.3 2.0-12.0 [facility] HospitalZfcldwsRHCPLBSFFI5544-23-75 18:46:00 Test Item Value Reference Range Interpretation Comments Lymphocytes (test code = Lymphocytes) 28.0 20.0-40.0 [facility] HospitalJwwzkuuULLSDSVSLL2935-27-36 18:46:00 Test Item Value Reference Range Interpretation Comments Monocytes # (test code 0.5 See_Comment [Aut omated message] The = Monocytes #) system which generated this result tra nsmitted reference range : <=0.8. The reference r mitra was not used to int erpret this result as normal/abnormal . [facility] HospitalVztrzuiNBQEBFBCMA4910-82-02 18:46:00 Test Item Value Reference Range Interpretation Comments Basophils (test code = 1.1 See_Comment [Aut omated message] The Basophils) system which ge nerated this result tra nsmitted reference range : <=1.0. The reference r mitra was not used to int erpret this result as normal/abnormal . [facility] HospitalHwyobvsKBLPJBAORD2181-14-91 18:46:00 Test Item Value Reference Range Interpretation Comments Lymphocytes # (test code = Lymphocytes 1.5 1.0-5.5 #) [facility] HospitalWaktmwzRVQBTNEIOC3994-12-69 18:46:00 Test Item Value Reference Range Interpretation Comments Segs-Bands # (test code = Segs-Bands #) 2.9 1.5-8.1 [facility] HospitalDlhndzuMNGFOHCJIA8787-06-53 18:46:00 Test Item Value Reference Range Interpretation Comments Eosinophils # (test code 0.2 See_Comment [A utomated message] The = Eosinophils #) system whic h generated this result tra nsmitted reference range : <=0.5. The reference r mitra was not used to int erpret this result as normal/abnormal . [facility] HospitalKpiwzexJYFCTVSBOK9932-83-86 18:46:00 Test Item Value Reference Range Interpretation Comments Basophils # (test code 0.1 See_Comment [Aut omated message] The = Basophils #) system which generated this result tra nsmitted reference range : <=0.2. The reference r mitra was not used to int erpret this result as normal/abnormal . [facility] HospitalMfqhlhiRBUFSKYFGE8797-63-99 18:46:00 Test Item Value Reference Range Interpretation Comments PT (test code = PT) 11.2 s 12.0-14.7 [facility] HospitalOkysltlZRSCRUAMWS0052-78-35 18:46:00 Test Item Value Reference Range Interpretation Comments INR (test code = INR) 0.82 0.85-1.17 [facility] Hospit[id number] 18:46:00 Test Item Value Reference Range Interpretation Comments PTT (test code = PTT) 28.6 s 22.9-35.8 [facility] HospitalLvaxraiTFWBAYFZRM3642-70-55 18:46:00 Test Item Value Reference Range Interpretation Comments MPV (test code = MPV) 8.1 7.4-10.4 [facility]QogrovaFLDOMVVFML4244-05-84 18:46:00 Test Item Value Reference Range Interpretation Comments Platelet (test code = Platelet) 301 133-450 [facility] HospitalBoshteaIKTPRRLUFI5996-54-55 18:46:00 Test Item Value Reference Range Interpretation Comments RDW (test code = RDW) 14.5 11.5-14.5 [facility] HospitalTccekjnTHSDZJIBYV9203-12-89 18:46:00 Test Item Value Reference Range Interpretation Comments RBC (test code = RBC) 4.84 4.70-6.10 [facility] HospitalItohczrZGERNFHOVO1222-57-29 18:46:00 Test Item Value Reference Range Interpretation Comments Hgb (test code = Hgb) 14.4 14.0-18.0 [facility] HospitalQmgupjaGNGDGUQYDO7831-55-55 18:46:00 Test Item Value Reference Range Interpretation Comments WBC (test code = WBC) 5.2 3.7-10.4 [facility] HospitalNynrxvaFKPPTDEOPA8825-55-39 18:46:00 Test Item Value Reference Range Interpretation Comments MCH (test code = MCH) 29.8 pg 27.0-31.0 [facility] HospitalJaroluwJAJPZYACIA5544-26-98 18:46:00 Test Item Value Reference Range Interpretation Comments MCV (test code = MCV) 92.0 80.0-94.0 [facility]M[id number] 18:46:00 Test Item Value Reference Range Interpretation Comments Hct (test code = Hct) 44.5 42.0-54.0 [facility] CenterRrsoiwoWIRDFOWKIH9499-35-63 18:46:00 Test Item Value Reference Range Interpretation Comments MCHC (test code = MCHC) 32.4 32.0-36.0 [facility] CenterQccvegtTWQIFZGIFZ5651-77-27 18:46:00 Test Item Value Reference Range Interpretation Comments [place]-Hep C Ab (test Negative *NA*(07/22/14 code = [place]-Hep C 1:46 PM) Ab) [facility] [id number] 18:46:00 Test Item Value Reference Range Interpretation Comments UA Urobilinogen (test code = UA <=1.0 mg/dL 0.1-1.0 Urobilinogen) [facility] AND [id number] 18:46:00 Test Item Value Reference Range Interpretation Comments UA Sq Epi (test code = UA Sq Epi) None Seen [facility] AND [id number] 18:46:00 Test Item Value Reference Range Interpretation Comments UA Leuk Est (test Negative (07/22/14 1:46 code = UA Leuk Est) PM) [facility] AND [id number] 18:46:00 Test Item Value Reference Range Interpretation Comments UA Nitrite (test code Negative (07/22/14 1:46 = UA Nitrite) PM) [facility] AND [id number] 18:46:00 Test Item Value Reference Range Interpretation Comments UA Blood (test code = Negative (07/22/14 1:46 UA Blood) PM) [facility] AND [id number] 18:46:00 Test Item Value Reference Range Interpretation Comments UA Ketones (test code = UA Negative mg/dL Ketones) [facility] AND [id number] 18:46:00 Test Item Value Reference Range Interpretation Comments UA Bili (test code = Negative *NA*(07/22/14 UA Bili) 1:46 PM) [facility] AND [id number] 18:46:00 Test Item Value Reference Range Interpretation Comments UA Bacteria (test code = UA Occasional /HPF Bacteria) [facility] AND [id number] 18:46:00 Test Item Value Reference Range Interpretation Comments UA RBC (test code = no gt See_Comment [Automa elizabeth message] The UA RBC) system which ge nerated this result transmit elizabeth reference range : <=2. The reference range was not used to interpr et this result as lukas l/abnormal. [facility] AND [id number] 18:46:00 Test Item Value Reference Range Interpretation Comments UA WBC (test code = 1 See_Comment [Automa elizabeth message] The UA WBC) system which ge nerated this result transmit elizabeth reference range : <=5. The reference range was not used to interpr et this result as lukas l/abnormal. [facility] AND [id number] 18:46:00 Test Item Value Reference Range Interpretation Comments UA Glucose (test code = UA Glucose) 30 mg/dL [facility] AND [id number] 18:46:00 Test Item Value Reference Range Interpretation Comments UA Protein (test code = UA Negative mg/dL Protein) [facility] AND [id number] 18:46:00 Test Item Value Reference Range Interpretation Comments UA pH (test code = UA pH) 6.5 5.0-8.0 [facility] AND [id number] 18:46:00 Test Item Value Reference Range Interpretation Comments UA Turbidity (test code = Clear (07/22/14 1:46 UA Turbidity) PM) [facility] AND [id number] 18:46:00 Test Item Value Reference Range Interpretation Comments UA Spec Grav (test code = UA Spec Grav) 1.010 [facility] AND [id number] 18:46:00 Test Item Value Reference Range Interpretation Comments UA Color (test code = Light Yellow UA Color) *NA*(07/22/14 1:46 PM) [facility] [id number] 18:46:00 Test Item Value Reference Range Interpretation Comments Magnesium Lvl (test code = Magnesium 1.8 1.8-2.4 Lvl) [facility] SurgeryHxffbvrCLNXZMZZBHUV7978-54-71 18:46:00 Test Item Value Reference Range Interpretation Comments AGAP (test code = AGAP) 13.2 10.0-20.0 [facility] Surgery[id number] 18:46:00 Test Item Value Reference Range Interpretation Comments B/C Ratio (test code = B/C Ratio) 18 6-25 [facility] Surgery[id number] 18:46:00 Test Item Value Reference Range Interpretation Comments A/G Ratio (test code = A/G Ratio) 1.1 0.7-1.6 [facility] SurgeryKnsvpfxBGILQVVSBAPE9476-74-51 18:46:00 Test Item Value Reference Range Interpretation Comments Globulin (test code = Globulin) 3.3 2.0-4.0 [facility] SurgeryRrjugotOWNSGYFPWNLX0779-01-40 18:46:00 Test Item Value Reference Range Interpretation Comments eGFR (test code = eGFR) 99 [facility] SurgeryKdrlihmXFCLYTVNNWRQ7255-66-13 18:46:00 Test Item Value Reference Range Interpretation Comments Calcium Lvl (test code = Calcium Lvl) 9.0 8.5-10.5 [facility] SurgeryQoppyizVJDNNXPCVAZN7385-60-39 18:46:00 Test Item Value Reference Range Interpretation Comments Chloride Lvl (test code = Chloride Lvl) 106 95-109 [facility] SurgeryJnvbiabZHXGMLCAAQMT5948-29-88 18:46:00 Test Item Value Reference Range Interpretation Comments Creatinine Lvl (test code = Creatinine 0.9 0.5-1.4 Lvl) [facility] SurgeryHhshdbdNBFNGBLKGAWT2763-22-83 18:46:00 Test Item Value Reference Range Interpretation Comments Potassium Lvl (test code = Potassium 4.2 3.5-5.1 Lvl) [facility] SurgeryKtjqcneKJFEQHWMZAHE7622-32-20 18:46:00 Test Item Value Reference Range Interpretation Comments Sodium Lvl (test code = Sodium Lvl) 139 135-145 [facility] SurgeryYjqmnsqQOPBCCUYVPVO5373-19-10 18:46:00 Test Item Value Reference Range Interpretation Comments CO2 (test code = CO2) 24 24-32 [facility] SurgeryXlqcuucDUVMTGLJKMXO6617-35-40 18:46:00 Test Item Value Reference Range Interpretation Comments BUN (test code = BUN) 16 7-22 [facility] SurgeryWcofdulMLOEPAMZNJAH8065-69-10 18:46:00 Test Item Value Reference Range Interpretation Comments Glucose Lvl (test code = Glucose Lvl) 141 70-99 [facility] SurgeryMnsxxlxZQRELSMQETAW7819-72-16 18:46:00 Test Item Value Reference Range Interpretation Comments Albumin Lvl (test code = Albumin Lvl) 3.6 3.5-5.0 [facility] SurgeryBzoorakRMSBGSRZQTTW2496-46-00 18:46:00 Test Item Value Reference Range Interpretation Comments Alk Phos (test code = Alk Phos) 65 39-136 [facility] SurgeryOzcukoqTKXOVOVSDRAI0786-76-20 18:46:00 Test Item Value Reference Range Interpretation Comments Bili Total (test code = Bili Total) 0.3 0.2-1.3 [facility] SurgeryUrhtpezLWESFEGRWWNA6209-91-84 18:46:00 Test Item Value Reference Range Interpretation Comments ALT (test code = ALT) 100 See_Comment [Auto mated message] The system which ge nerated this result transmit elizabeth reference range : <=65. The reference range was not used to interpr et this result as lukas l/abnormal. [facility] SurgeryIbmmnwgWABLRKALJNTV4735-28-16 18:46:00 Test Item Value Reference Range Interpretation Comments AST (test code = AST) 53 See_Comment [Auto mated message] The system which ge nerated this result transmit elizabeth reference range : <=37. The reference range was not used to interpr et this result as lukas l/abnormal. [facility] SurgeryYyujshwRXRWZICABEDY5237-34-89 18:46:00 Test Item Value Reference Range Interpretation Comments Total Protein (test code = Total 6.9 6.4-8.4 Protein) [facility] HospitalNxalwyqWIXVVPINIQ1202-51-42 18:46:00 Test Item Value Reference Range Interpretation Comments Eosinophils (test code = 4.2 See_Comment [A utomated message] The Eosinophils) system which ge nerated this result tra nsmitted reference range : <=4.0. The reference r mitra was not used to int erpret this result as normal/abnormal . [facility] HospitalFhiaguyPTTFVVEGTE4153-62-98 18:46:00 Test Item Value Reference Range Interpretation Comments Segs (test code = Segs) 56.4 45.0-75.0 [facility] HospitalPowujndCKSTSITVGZ8658-39-81 18:46:00 Test Item Value Reference Range Interpretation Comments Monocytes (test code = Monocytes) 10.3 2.0-12.0 [facility] HospitalDzeyrusPNLBVMLJHP9388-91-24 18:46:00 Test Item Value Reference Range Interpretation Comments Lymphocytes (test code = Lymphocytes) 28.0 20.0-40.0 [facility] HospitalSunpmsyCNOUWDIGAU2958-82-09 18:46:00 Test Item Value Reference Range Interpretation Comments Monocytes # (test code 0.5 See_Comment [Aut omated message] The = Monocytes #) system which generated this result tra nsmitted reference range : <=0.8. The reference r mitra was not used to int erpret this result as normal/abnormal . [facility] HospitalQyiakcyPGZPSWZZZD3415-84-70 18:46:00 Test Item Value Reference Range Interpretation Comments Basophils (test code = 1.1 See_Comment [Aut omated message] The Basophils) system which ge nerated this result tra nsmitted reference range : <=1.0. The reference r mitra was not used to int erpret this result as normal/abnormal . [facility] HospitalDapfwbkXAZXXMTBDY4936-57-97 18:46:00 Test Item Value Reference Range Interpretation Comments Lymphocytes # (test code = Lymphocytes 1.5 1.0-5.5 #) [facility] HospitalIodpxjtNDYQCFPGTM8674-62-20 18:46:00 Test Item Value Reference Range Interpretation Comments Segs-Bands # (test code = Segs-Bands #) 2.9 1.5-8.1 [facility] HospitalUkabokrVYWWZGQQRB8984-81-84 18:46:00 Test Item Value Reference Range Interpretation Comments Eosinophils # (test code 0.2 See_Comment [A utomated message] The = Eosinophils #) system whic h generated this result tra nsmitted reference range : <=0.5. The reference r mitra was not used to int erpret this result as normal/abnormal . [facility] HospitalMipiykhPJBKBUIDUC0272-57-02 18:46:00 Test Item Value Reference Range Interpretation Comments Basophils # (test code 0.1 See_Comment [Aut omated message] The = Basophils #) system which generated this result tra nsmitted reference range : <=0.2. The reference r mitra was not used to int erpret this result as normal/abnormal . [facility] HospitalOsmfsjkKMWQKFMJBH9677-74-05 18:46:00 Test Item Value Reference Range Interpretation Comments PT (test code = PT) 11.2 s 12.0-14.7 [facility] HospitalGxzawpdKXAUWXGXVJ4426-96-99 18:46:00 Test Item Value Reference Range Interpretation Comments INR (test code = INR) 0.82 0.85-1.17 [facility] HospitalNutlmroLKEZGVVKCT1875-68-32 18:46:00 Test Item Value Reference Range Interpretation Comments PTT (test code = PTT) 28.6 s 22.9-35.8 [facility] HospitalSwkksanULLBGUXRSZ3241-81-73 18:46:00 Test Item Value Reference Range Interpretation Comments MPV (test code = MPV) 8.1 7.4-10.4 [facility] HospitalMstkptrGWPZWDYQHS9931-57-33 18:46:00 Test Item Value Reference Range Interpretation Comments Platelet (test code = Platelet) 301 133-450 [facility] HospitalHjvrotlGUQLSGDXFW2874-06-25 18:46:00 Test Item Value Reference Range Interpretation Comments RDW (test code = RDW) 14.5 11.5-14.5 [facility] HospitalFjvvlokVTTJCZIZLR1726-31-09 18:46:00 Test Item Value Reference Range Interpretation Comments RBC (test code = RBC) 4.84 4.70-6.10 [facility] CenterBmiskbyGLSBIAVRML2742-73-30 18:46:00 Test Item Value Reference Range Interpretation Comments Hgb (test code = Hgb) 14.4 14.0-18.0 [facility] CenterYlwhpeeIIGSKGSNVP9947-64-37 18:46:00 Test Item Value Reference Range Interpretation Comments WBC (test code = WBC) 5.2 3.7-10.4 [facility] HospitalApjmoneYZZGLYDDWV3671-02-00 18:46:00 Test Item Value Reference Range Interpretation Comments MCH (test code = MCH) 29.8 pg 27.0-31.0 [facility] HospitalDhlotndPOQCPRQHHG9743-93-98 18:46:00 Test Item Value Reference Range Interpretation Comments MCV (test code = MCV) 92.0 80.0-94.0 [facility] HospitalVapcaexKYJXQNNCEO4143-90-45 18:46:00 Test Item Value Reference Range Interpretation Comments Hct (test code = Hct) 44.5 42.0-54.0 [facility] HospitalPymvbypWJBMFFTLAH5214-38-51 18:46:00 Test Item Value Reference Range Interpretation Comments MCHC (test code = MCHC) 32.4 32.0-36.0 [facility] CenterDpbhohuFWDEIMAXIT2530-14-75 18:46:00 Test Item Value Reference Range Interpretation Comments [place]-Hep C Ab (test Negative *NA*(07/22/14 code = [place]-Hep C 1:46 PM) Ab) [facility] AND [id number] 18:46:00 Test Item Value Reference Range Interpretation Comments UA Urobilinogen (test code = UA <=1.0 mg/dL 0.1-1.0 Urobilinogen) [facility] AND [id number] 18:46:00 Test Item Value Reference Range Interpretation Comments UA Sq Epi (test code = UA Sq Epi) None Seen [facility] AND [id number] 18:46:00 Test Item Value Reference Range Interpretation Comments UA Leuk Est (test Negative (07/22/14 1:46 code = UA Leuk Est) PM) [facility] AND [id number] 18:46:00 Test Item Value Reference Range Interpretation Comments UA Nitrite (test code Negative (07/22/14 1:46 = UA Nitrite) PM) [facility] AND [id number] 18:46:00 Test Item Value Reference Range Interpretation Comments UA Blood (test code = Negative (07/22/14 1:46 UA Blood) PM) [facility] AND [id number] 18:46:00 Test Item Value Reference Range Interpretation Comments UA Ketones (test code = UA Negative mg/dL Ketones) [facility] AND [id number] 18:46:00 Test Item Value Reference Range Interpretation Comments UA Bili (test code = Negative *NA*(07/22/14 UA Bili) 1:46 PM) [facility] AND [id number] 18:46:00 Test Item Value Reference Range Interpretation Comments UA Bacteria (test code = UA Occasional /HPF Bacteria) [facility] AND [id number] 18:46:00 Test Item Value Reference Range Interpretation Comments UA RBC (test code = no gt See_Comment [Automa elizabeth message] The UA RBC) system which ge nerated this result transmit elizabeth reference range : <=2. The reference range was not used to interpr et this result as lukas l/abnormal. [facility] AND [id number] 18:46:00 Test Item Value Reference Range Interpretation Comments UA WBC (test code = 1 See_Comment [Automa elizabeth message] The UA WBC) system which ge nerated this result transmit elizabeth reference range : <=5. The reference range was not used to interpr et this result as lukas l/abnormal. [facility] AND [id number] 18:46:00 Test Item Value Reference Range Interpretation Comments UA Glucose (test code = UA Glucose) 30 mg/dL [facility] AND [id number] 18:46:00 Test Item Value Reference Range Interpretation Comments UA Protein (test code = UA Negative mg/dL Protein) [facility] AND [id number] 18:46:00 Test Item Value Reference Range Interpretation Comments UA pH (test code = UA pH) 6.5 5.0-8.0 [facility] AND [id number] 18:46:00 Test Item Value Reference Range Interpretation Comments UA Turbidity (test code = Clear (07/22/14 1:46 UA Turbidity) PM) [facility] AND [id number] 18:46:00 Test Item Value Reference Range Interpretation Comments UA Spec Grav (test code = UA Spec Grav) 1.010 [facility] [id number] 18:46:00 Test Item Value Reference Range Interpretation Comments UA Color (test code = Light Yellow UA Color) *NA*(07/22/14 1:46 PM) [facility] [id number] 18:46:00 Test Item Value Reference Range Interpretation Comments Magnesium Lvl (test code = Magnesium 1.8 1.8-2.4 Lvl) [facility]GrzdcxxPYUALXANESEF4273-89-14 18:46:00 Test Item Value Reference Range Interpretation Comments AGAP (test code = AGAP) 13.2 10.0-20.0 [facility] SurgeryZzchfytGWSQHRHAAISS9666-20-87 18:46:00 Test Item Value Reference Range Interpretation Comments B/C Ratio (test code = B/C Ratio) 18 6-25 [facility] SurgeryEtwrygePJUZBUZTGZYW7134-87-91 18:46:00 Test Item Value Reference Range Interpretation Comments A/G Ratio (test code = A/G Ratio) 1.1 0.7-1.6 [facility] SurgeryNuubwezWYKHIABGHUQE8418-97-31 18:46:00 Test Item Value Reference Range Interpretation Comments Globulin (test code = Globulin) 3.3 2.0-4.0 [facility] SurgeryLxsyiqvHVHWSBHPWPRE3618-46-28 18:46:00 Test Item Value Reference Range Interpretation Comments eGFR (test code = eGFR) 99 [facility] SurgeryUmbrxclSNRUZYXYNMQD4104-18-19 18:46:00 Test Item Value Reference Range Interpretation Comments Calcium Lvl (test code = Calcium Lvl) 9.0 8.5-10.5 [facility] SurgeryTpwlvynEIKCZEHDWKJP1224-38-40 18:46:00 Test Item Value Reference Range Interpretation Comments Chloride Lvl (test code = Chloride Lvl) 106 95-109 [facility] SurgeryGiyommwXFMHNXJGPIBL5313-87-48 18:46:00 Test Item Value Reference Range Interpretation Comments Creatinine Lvl (test code = Creatinine 0.9 0.5-1.4 Lvl) [facility] SurgeryKwwupssAYAXPKYLXJEN8987-36-72 18:46:00 Test Item Value Reference Range Interpretation Comments Potassium Lvl (test code = Potassium 4.2 3.5-5.1 Lvl) [facility] SurgeryTjtzzigUJPNOJVJTFGM9374-83-51 18:46:00 Test Item Value Reference Range Interpretation Comments Sodium Lvl (test code = Sodium Lvl) 139 135-145 [facility] SurgeryLbprraoTJYVCNGIQIVG3238-95-23 18:46:00 Test Item Value Reference Range Interpretation Comments CO2 (test code = CO2) 24 24-32 [facility] SurgeryJlhavnkSHDRBHQWUBKR9045-83-41 18:46:00 Test Item Value Reference Range Interpretation Comments BUN (test code = BUN) 16 7-22 [facility] SurgeryVgkqiwfGWBJRHVTAUGP5290-72-36 18:46:00 Test Item Value Reference Range Interpretation Comments Glucose Lvl (test code = Glucose Lvl) 141 70-99 [facility] SurgeryQnfnwvyMYKBUSQDZEYC6152-22-09 18:46:00 Test Item Value Reference Range Interpretation Comments Albumin Lvl (test code = Albumin Lvl) 3.6 3.5-5.0 [facility] SurgeryChdomuhJEDQYOMBTITZ8907-70-32 18:46:00 Test Item Value Reference Range Interpretation Comments Alk Phos (test code = Alk Phos) 65 39-136 [facility] SurgeryHxlabviWBMUCWJNTYTR5018-98-40 18:46:00 Test Item Value Reference Range Interpretation Comments Bili Total (test code = Bili Total) 0.3 0.2-1.3 [facility] SurgeryJjxtvhpPVUTOMRRQCWS8838-59-36 18:46:00 Test Item Value Reference Range Interpretation Comments ALT (test code = ALT) 100 See_Comment [Auto mated message] The system which ge nerated this result transmit elizabeth reference range : <=65. The reference range was not used to interpr et this result as lukas l/abnormal. [facility] SurgeryGhdjblxJPEZIUBFWMSN5956-09-78 18:46:00 Test Item Value Reference Range Interpretation Comments AST (test code = AST) 53 See_Comment [Auto mated message] The system which ge nerated this result transmit elizabeth reference range : <=37. The reference range was not used to interpr et this result as lukas l/abnormal. [facility] SurgeryBsnfjqjARNZUEKNFMGQ1000-58-90 18:46:00 Test Item Value Reference Range Interpretation Comments Total Protein (test code = Total 6.9 6.4-8.4 Protein) [facility] CenterHwfprbpQICEUHTPDX8389-79-83 18:46:00 Test Item Value Reference Range Interpretation Comments Eosinophils (test code = 4.2 See_Comment [A utomated message] The Eosinophils) system which ge nerated this result tra nsmitted reference range : <=4.0. The reference r mitra was not used to int erpret this result as normal/abnormal . [facility] HospitalHunsfbxAISWXURBUP7606-17-42 18:46:00 Test Item Value Reference Range Interpretation Comments Segs (test code = Segs) 56.4 45.0-75.0 [facility] HospitalFhpgjzyWIFFCOZPQB0223-85-92 18:46:00 Test Item Value Reference Range Interpretation Comments Monocytes (test code = Monocytes) 10.3 2.0-12.0 [facility] HospitalGfbxrnsXQVQVBJIDM9350-78-53 18:46:00 Test Item Value Reference Range Interpretation Comments Lymphocytes (test code = Lymphocytes) 28.0 20.0-40.0 [facility] HospitalSfsrgoaWKZUIOHUSI0751-24-34 18:46:00 Test Item Value Reference Range Interpretation Comments Monocytes # (test code 0.5 See_Comment [Aut omated message] The = Monocytes #) system which generated this result tra nsmitted reference range : <=0.8. The reference r mitra was not used to int erpret this result as normal/abnormal . [facility] HospitalWrpjnhwLCZBBGIPFO8678-33-60 18:46:00 Test Item Value Reference Range Interpretation Comments Basophils (test code = 1.1 See_Comment [Aut omated message] The Basophils) system which ge nerated this result tra nsmitted reference range : <=1.0. The reference r mitra was not used to int erpret this result as normal/abnormal . [facility] HospitalArycvgzUHKYDTHLZB1672-89-83 18:46:00 Test Item Value Reference Range Interpretation Comments Lymphocytes # (test code = Lymphocytes 1.5 1.0-5.5 #) [facility] HospitalLdhgcqtOXSLWTKEOU3261-98-44 18:46:00 Test Item Value Reference Range Interpretation Comments Segs-Bands # (test code = Segs-Bands #) 2.9 1.5-8.1 [facility] HospitalUjjkfynRLLCQANHEL8188-81-73 18:46:00 Test Item Value Reference Range Interpretation Comments Eosinophils # (test code 0.2 See_Comment [A utomated message] The = Eosinophils #) system wh h generated this result tra nsmitted reference range : <=0.5. The reference r mitra was not used to int erpret this result as normal/abnormal . [facility] HospitalRftkwyxRRNJTUUKCX8493-95-09 18:46:00 Test Item Value Reference Range Interpretation Comments Basophils # (test code 0.1 See_Comment [Aut omated message] The = Basophils #) system which generated this result tra nsmitted reference range : <=0.2. The reference r mitra was not used to int erpret this result as normal/abnormal . [facility] HospitalOlklojiCYVQSVAIFN4518-48-25 18:46:00 Test Item Value Reference Range Interpretation Comments PT (test code = PT) 11.2 s 12.0-14.7 [facility] HospitalOkkxnyxTMIWKCAUGI3427-57-57 18:46:00 Test Item Value Reference Range Interpretation Comments INR (test code = INR) 0.82 0.85-1.17 [facility] HospitalRqnbjklDQLLXYAXJQ0497-86-66 18:46:00 Test Item Value Reference Range Interpretation Comments PTT (test code = PTT) 28.6 s 22.9-35.8 [facility] Hospit[id number] 18:46:00 Test Item Value Reference Range Interpretation Comments MPV (test code = MPV) 8.1 7.4-10.4 [facility] HospitalHtbjunqUGCFOYZTRV7020-55-63 18:46:00 Test Item Value Reference Range Interpretation Comments Platelet (test code = Platelet) 301 133-450 [facility] HospitalMlivusmJKDRNDZENA7782-94-81 18:46:00 Test Item Value Reference Range Interpretation Comments RDW (test code = RDW) 14.5 11.5-14.5 [facility] HospitalTboodccTDXVWTVZQP8331-63-54 18:46:00 Test Item Value Reference Range Interpretation Comments RBC (test code = RBC) 4.84 4.70-6.10 [facility] HospitalAmimjdmMAKPKEITOY2570-18-48 18:46:00 Test Item Value Reference Range Interpretation Comments Hgb (test code = Hgb) 14.4 14.0-18.0 [facility] HospitalHfzxkktMCYLUYCPJD2288-20-24 18:46:00 Test Item Value Reference Range Interpretation Comments WBC (test code = WBC) 5.2 3.7-10.4 [facility] HospitalCgebekoEWZXXSUKPN1955-34-19 18:46:00 Test Item Value Reference Range Interpretation Comments MCH (test code = MCH) 29.8 pg 27.0-31.0 [facility] HospitalFkcptvaBHAVVNMSGV4525-60-57 18:46:00 Test Item Value Reference Range Interpretation Comments MCV (test code = MCV) 92.0 80.0-94.0 [facility]ThyhthvYQZTQSKLCF9530-04-84 18:46:00 Test Item Value Reference Range Interpretation Comments Hct (test code = Hct) 44.5 42.0-54.0 [facility] CenterFomqydjQKEHSQDLPH7613-50-49 18:46:00 Test Item Value Reference Range Interpretation Comments MCHC (test code = MCHC) 32.4 32.0-36.0 [facility] CenterIsmzqmiBTHBNQXWIY3559-74-06 18:46:00 Test Item Value Reference Range Interpretation Comments [place]-Hep C Ab (test Negative *NA*(07/22/14 code = [place]-Hep C 1:46 PM) Ab) [facility] AND [id number] 18:46:00 Test Item Value Reference Range Interpretation Comments UA Urobilinogen (test code = UA <=1.0 mg/dL 0.1-1.0 Urobilinogen) [facility] AND [id number] 18:46:00 Test Item Value Reference Range Interpretation Comments UA Sq Epi (test code = UA Sq Epi) None Seen [facility] AND [id number] 18:46:00 Test Item Value Reference Range Interpretation Comments UA Leuk Est (test Negative (07/22/14 1:46 code = UA Leuk Est) PM) [facility] AND [id number] 18:46:00 Test Item Value Reference Range Interpretation Comments UA Nitrite (test code Negative (07/22/14 1:46 = UA Nitrite) PM) [facility] AND [id number] 18:46:00 Test Item Value Reference Range Interpretation Comments UA Blood (test code = Negative (07/22/14 1:46 UA Blood) PM) [facility] AND [id number] 18:46:00 Test Item Value Reference Range Interpretation Comments UA Ketones (test code = UA Negative mg/dL Ketones) [facility] AND [id number] 18:46:00 Test Item Value Reference Range Interpretation Comments UA Bili (test code = Negative *NA*(07/22/14 UA Bili) 1:46 PM) [facility] AND [id number] 18:46:00 Test Item Value Reference Range Interpretation Comments UA Bacteria (test code = UA Occasional /HPF Bacteria) [facility] AND [id number] 18:46:00 Test Item Value Reference Range Interpretation Comments UA RBC (test code = no gt See_Comment [Automa elizabeth message] The UA RBC) system which ge nerated this result transmit elizabeth reference range : <=2. The reference range was not used to interpr et this result as lukas l/abnormal. [facility] [id number] 18:46:00 Test Item Value Reference Range Interpretation Comments UA WBC (test code = 1 See_Comment [Automa elizabeth message] The UA WBC) system which ge nerated this result transmit elizabeth reference range : <=5. The reference range was not used to interpr et this result as lukas l/abnormal. [facility] [id number] 18:46:00 Test Item Value Reference Range Interpretation Comments UA Glucose (test code = UA Glucose) 30 mg/dL [facility] AND [id number] 18:46:00 Test Item Value Reference Range Interpretation Comments UA Protein (test code = UA Negative mg/dL Protein) [facility] AND [id number] 18:46:00 Test Item Value Reference Range Interpretation Comments UA pH (test code = UA pH) 6.5 5.0-8.0 [facility] AND [id number] 18:46:00 Test Item Value Reference Range Interpretation Comments UA Turbidity (test code = Clear (07/22/14 1:46 UA Turbidity) PM) [facility] AND [id number] 18:46:00 Test Item Value Reference Range Interpretation Comments UA Spec Grav (test code = UA Spec Grav) 1.010 [facility] AND [id number] 18:46:00 Test Item Value Reference Range Interpretation Comments UA Color (test code = Light Yellow UA Color) *NA*(07/22/14 1:46 PM) [facility] [id number] 18:46:00 Test Item Value Reference Range Interpretation Comments Magnesium Lvl (test code = Magnesium 1.8 1.8-2.4 Lvl) [id number] 18:46:00 Test Item Value Reference Range Interpretation Comments AGAP (test code = AGAP) 13.2 10.0-20.0 [facility] SurgeryDxtkvqjRZBKTONRTMFT7280-78-28 18:46:00 Test Item Value Reference Range Interpretation Comments B/C Ratio (test code = B/C Ratio) 18 6-25 [facility] SurgeryFjhrbifUFEXVXHYGSAB7460-82-93 18:46:00 Test Item Value Reference Range Interpretation Comments A/G Ratio (test code = A/G Ratio) 1.1 0.7-1.6 [facility] SurgeryBzagvicMUKJLLGERMNL0477-59-57 18:46:00 Test Item Value Reference Range Interpretation Comments Globulin (test code = Globulin) 3.3 2.0-4.0 [facility] SurgeryRnsfowoULWDOOUTANWV8596-69-87 18:46:00 Test Item Value Reference Range Interpretation Comments eGFR (test code = eGFR) 99 [facility] SurgeryNqvtxbeKWSPSDYAKFET8210-91-50 18:46:00 Test Item Value Reference Range Interpretation Comments Calcium Lvl (test code = Calcium Lvl) 9.0 8.5-10.5 [facility] SurgeryMaksaurRBHRXROGKTMD4062-67-94 18:46:00 Test Item Value Reference Range Interpretation Comments Chloride Lvl (test code = Chloride Lvl) 106 95-109 [facility] SurgeryMnuuithKNNUIHEEVJZT9994-68-74 18:46:00 Test Item Value Reference Range Interpretation Comments Creatinine Lvl (test code = Creatinine 0.9 0.5-1.4 Lvl) [facility] SurgeryDaljrasFGXFPBUXKYVO9108-18-76 18:46:00 Test Item Value Reference Range Interpretation Comments Potassium Lvl (test code = Potassium 4.2 3.5-5.1 Lvl) [facility] SurgeryXtwjbbdCZPWCMSKOEBU4101-87-44 18:46:00 Test Item Value Reference Range Interpretation Comments Sodium Lvl (test code = Sodium Lvl) 139 135-145 [facility] SurgeryWquycxwOWDDITKJAYZI0295-36-79 18:46:00 Test Item Value Reference Range Interpretation Comments CO2 (test code = CO2) 24 24-32 [facility] SurgeryUdqrkueVVXPQISPJFNE0911-97-67 18:46:00 Test Item Value Reference Range Interpretation Comments BUN (test code = BUN) 16 7-22 [facility] SurgeryWvtrzsyUKOEDAYAJNHR0445-70-86 18:46:00 Test Item Value Reference Range Interpretation Comments Glucose Lvl (test code = Glucose Lvl) 141 70-99 [facility] SurgeryGatavjzOWVKYENXAMPD9389-83-99 18:46:00 Test Item Value Reference Range Interpretation Comments Albumin Lvl (test code = Albumin Lvl) 3.6 3.5-5.0 [facility] SurgeryDshassrYEIZRCOIIPCB5986-02-02 18:46:00 Test Item Value Reference Range Interpretation Comments Alk Phos (test code = Alk Phos) 65 39-136 [facility] SurgeryNcnagogXEGTUTHCQGMY9211-76-11 18:46:00 Test Item Value Reference Range Interpretation Comments Bili Total (test code = Bili Total) 0.3 0.2-1.3 [facility] SurgeryGuyklnbEZGMUIQIPZGW9856-96-06 18:46:00 Test Item Value Reference Range Interpretation Comments ALT (test code = ALT) 100 See_Comment [Auto mated message] The system which ge nerated this result transmit elizabeth reference range : <=65. The reference range was not used to interpr et this result as lukas l/abnormal. [facility] Surgery[id number] 18:46:00 Test Item Value Reference Range Interpretation Comments AST (test code = AST) 53 See_Comment [Auto mated message] The system which ge nerated this result transmit elizabeth reference range : <=37. The reference range was not used to interpr et this result as lukas l/abnormal. [facility] SurgeryRmpcvsbBNZXSTAFTGUP7162-95-13 18:46:00 Test Item Value Reference Range Interpretation Comments Total Protein (test code = Total 6.9 6.4-8.4 Protein) [facility] HospitalNtloqjsHBNZTGKPMN0533-65-59 18:46:00 Test Item Value Reference Range Interpretation Comments Eosinophils (test code = 4.2 See_Comment [A utomated message] The Eosinophils) system which ge nerated this result tra nsmitted reference range : <=4.0. The reference r mitra was not used to int erpret this result as normal/abnormal . [facility] HospitalJpilfqwJWGTBXLHAQ6414-65-18 18:46:00 Test Item Value Reference Range Interpretation Comments Segs (test code = Segs) 56.4 45.0-75.0 [facility] HospitalCajkpxjOQMFTJPURW8582-41-71 18:46:00 Test Item Value Reference Range Interpretation Comments Monocytes (test code = Monocytes) 10.3 2.0-12.0 [facility] HospitalLkshoceFYPSYSWWFH4183-26-07 18:46:00 Test Item Value Reference Range Interpretation Comments Lymphocytes (test code = Lymphocytes) 28.0 20.0-40.0 [facility] HospitalTgynznxDHVVKNNRWA8968-96-52 18:46:00 Test Item Value Reference Range Interpretation Comments Monocytes # (test code 0.5 See_Comment [Aut omated message] The = Monocytes #) system which generated this result tra nsmitted reference range : <=0.8. The reference r mitra was not used to int erpret this result as normal/abnormal . [facility] HospitalXaqnjhfSUQTBUCZZU4851-30-87 18:46:00 Test Item Value Reference Range Interpretation Comments Basophils (test code = 1.1 See_Comment [Aut omated message] The Basophils) system which ge nerated this result tra nsmitted reference range : <=1.0. The reference r mitra was not used to int erpret this result as normal/abnormal . [facility] HospitalLwicrnfVSSCLUEZHP0609-17-65 18:46:00 Test Item Value Reference Range Interpretation Comments Lymphocytes # (test code = Lymphocytes 1.5 1.0-5.5 #) [facility] HospitalVccyppdCXCQHJTHLM6081-96-15 18:46:00 Test Item Value Reference Range Interpretation Comments Segs-Bands # (test code = Segs-Bands #) 2.9 1.5-8.1 [facility] HospitalFpeqxrhAWIIETICYZ8187-59-47 18:46:00 Test Item Value Reference Range Interpretation Comments Eosinophils # (test code 0.2 See_Comment [A utomated message] The = Eosinophils #) system whic h generated this result tra nsmitted reference range : <=0.5. The reference r mitra was not used to int erpret this result as normal/abnormal . [facility] HospitalYmfzwrgRLTZYQIBPD9289-86-59 18:46:00 Test Item Value Reference Range Interpretation Comments Basophils # (test code 0.1 See_Comment [Aut omated message] The = Basophils #) system which generated this result tra nsmitted reference range : <=0.2. The reference r mitra was not used to int erpret this result as normal/abnormal . [facility] HospitalXmstpygLLDUJTOMJU2953-07-71 18:46:00 Test Item Value Reference Range Interpretation Comments PT (test code = PT) 11.2 s 12.0-14.7 [facility] HospitalGmvvxbtPTFSEICDWJ4699-89-28 18:46:00 Test Item Value Reference Range Interpretation Comments INR (test code = INR) 0.82 0.85-1.17 [facility] HospitalRcvpjnnOZENZEXTRU5188-11-84 18:46:00 Test Item Value Reference Range Interpretation Comments PTT (test code = PTT) 28.6 s 22.9-35.8 [facility] HospitalYcvlphxOMYZZQFQLO2888-50-95 18:46:00 Test Item Value Reference Range Interpretation Comments MPV (test code = MPV) 8.1 7.4-10.4 [facility] HospitalTuduougTVSPIIZDLN2670-53-68 18:46:00 Test Item Value Reference Range Interpretation Comments Platelet (test code = Platelet) 301 133-450 [facility] HospitalTzudkndHSZTRKSNUP5799-35-32 18:46:00 Test Item Value Reference Range Interpretation Comments RDW (test code = RDW) 14.5 11.5-14.5 [facility] HospitalIsphxceOYARZPGWRN5991-24-33 18:46:00 Test Item Value Reference Range Interpretation Comments RBC (test code = RBC) 4.84 4.70-6.10 [facility] HospitalKclebguSJBCSKKOKX4822-65-04 18:46:00 Test Item Value Reference Range Interpretation Comments Hgb (test code = Hgb) 14.4 14.0-18.0 [facility] HospitalRzkdzzhRXGSARSVKP6473-03-75 18:46:00 Test Item Value Reference Range Interpretation Comments WBC (test code = WBC) 5.2 3.7-10.4 [facility] HospitalXvjoqlzTICWXIMJSU7173-40-00 18:46:00 Test Item Value Reference Range Interpretation Comments MCH (test code = MCH) 29.8 pg 27.0-31.0 [facility] HospitalSsxuppiNPZZUJMTXL6569-48-34 18:46:00 Test Item Value Reference Range Interpretation Comments MCV (test code = MCV) 92.0 80.0-94.0 [facility] HospitalMdqtmzwPCZEJJSUOI4788-55-38 18:46:00 Test Item Value Reference Range Interpretation Comments Hct (test code = Hct) 44.5 42.0-54.0 [facility] HospitalEwkkcwzECFWQEIKXQ3899-17-65 18:46:00 Test Item Value Reference Range Interpretation Comments MCHC (test code = MCHC) 32.4 32.0-36.0 [facility] CenterFrjqlffPBNKOQZXNX7118-17-18 18:46:00 Test Item Value Reference Range Interpretation Comments [place]-Hep C Ab (test Negative *NA*(07/22/14 code = [place]-Hep C 1:46 PM) Ab) [facility] AND [id number] 18:46:00 Test Item Value Reference Range Interpretation Comments UA Urobilinogen (test code = UA <=1.0 mg/dL 0.1-1.0 Urobilinogen) [facility] AND [id number] 18:46:00 Test Item Value Reference Range Interpretation Comments UA Sq Epi (test code = UA Sq Epi) None Seen [facility] AND [id number] 18:46:00 Test Item Value Reference Range Interpretation Comments UA Leuk Est (test Negative (07/22/14 1:46 code = UA Leuk Est) PM) [facility] AND [id number] 18:46:00 Test Item Value Reference Range Interpretation Comments UA Nitrite (test code Negative (07/22/14 1:46 = UA Nitrite) PM) [facility] AND [id number] 18:46:00 Test Item Value Reference Range Interpretation Comments UA Blood (test code = Negative (07/22/14 1:46 UA Blood) PM) [facility] AND [id number] 18:46:00 Test Item Value Reference Range Interpretation Comments UA Ketones (test code = UA Negative mg/dL Ketones) [facility] AND [id number] 18:46:00 Test Item Value Reference Range Interpretation Comments UA Bili (test code = Negative *NA*(07/22/14 UA Bili) 1:46 PM) [facility] AND [id number] 18:46:00 Test Item Value Reference Range Interpretation Comments UA Bacteria (test code = UA Occasional /HPF Bacteria) [facility] AND [id number] 18:46:00 Test Item Value Reference Range Interpretation Comments UA RBC (test code = no gt See_Comment [Automa elizabeth message] The UA RBC) system which ge nerated this result transmit elizabeth reference range : <=2. The reference range was not used to interpr et this result as lukas l/abnormal. [facility] AND [id number] 18:46:00 Test Item Value Reference Range Interpretation Comments UA WBC (test code = 1 See_Comment [Automa elizabeth message] The UA WBC) system which ge nerated this result transmit elizabeth reference range : <=5. The reference range was not used to interpr et this result as lukas l/abnormal. [facility] AND [id number] 18:46:00 Test Item Value Reference Range Interpretation Comments UA Glucose (test code = UA Glucose) 30 mg/dL [facility] AND [id number] 18:46:00 Test Item Value Reference Range Interpretation Comments UA Protein (test code = UA Negative mg/dL Protein) [facility] AND [id number] 18:46:00 Test Item Value Reference Range Interpretation Comments UA pH (test code = UA pH) 6.5 5.0-8.0 [facility] AND [id number] 18:46:00 Test Item Value Reference Range Interpretation Comments UA Turbidity (test code = Clear (07/22/14 1:46 UA Turbidity) PM) [facility] AND [id number] 18:46:00 Test Item Value Reference Range Interpretation Comments UA Spec Grav (test code = UA Spec Grav) 1.010 [facility] AND [id number] 18:46:00 Test Item Value Reference Range Interpretation Comments UA Color (test code = Light Yellow UA Color) *NA*(07/22/14 1:46 PM) [facility] [id number] 18:46:00 Test Item Value Reference Range Interpretation Comments Magnesium Lvl (test code = Magnesium 1.8 1.8-2.4 Lvl) [facility] SurgeryLpelmljOEONXCBEWWID5720-73-07 18:46:00 Test Item Value Reference Range Interpretation Comments AGAP (test code = AGAP) 13.2 10.0-20.0 [facility] SurgeryEfoouvnOXBDVPQJNDQB5335-55-37 18:46:00 Test Item Value Reference Range Interpretation Comments B/C Ratio (test code = B/C Ratio) 18 6-25 [facility] SurgeryMjxzmegEJWTYXKTYXCE4390-12-77 18:46:00 Test Item Value Reference Range Interpretation Comments A/G Ratio (test code = A/G Ratio) 1.1 0.7-1.6 [facility] SurgeryRqgfsobVELPJTTBZVWY3773-79-99 18:46:00 Test Item Value Reference Range Interpretation Comments Globulin (test code = Globulin) 3.3 2.0-4.0 [facility] SurgeryWnedaicPEHKBJQXCSNW9568-42-93 18:46:00 Test Item Value Reference Range Interpretation Comments eGFR (test code = eGFR) 99 [facility] SurgeryVrbvnvkPPHBYHRLRAOT4749-53-68 18:46:00 Test Item Value Reference Range Interpretation Comments Calcium Lvl (test code = Calcium Lvl) 9.0 8.5-10.5 [facility] SurgeryAhwamihMMTWMFDETNWL4810-76-50 18:46:00 Test Item Value Reference Range Interpretation Comments Chloride Lvl (test code = Chloride Lvl) 106 95-109 [facility] SurgeryXdafkiiRGPZZZEKMTRE3689-41-70 18:46:00 Test Item Value Reference Range Interpretation Comments Creatinine Lvl (test code = Creatinine 0.9 0.5-1.4 Lvl) [facility] SurgeryVnjcycdSTERBCWCYSLH0827-01-47 18:46:00 Test Item Value Reference Range Interpretation Comments Potassium Lvl (test code = Potassium 4.2 3.5-5.1 Lvl) [facility] SurgeryQsqnmpnCLFTRCQNZOWZ1080-84-15 18:46:00 Test Item Value Reference Range Interpretation Comments Sodium Lvl (test code = Sodium Lvl) 139 135-145 [facility] SurgeryCvazsosDUSFIQPUGRHS9994-46-45 18:46:00 Test Item Value Reference Range Interpretation Comments CO2 (test code = CO2) 24 24-32 [facility] SurgeryNdqdtngORWSBPHNYMJW5891-97-90 18:46:00 Test Item Value Reference Range Interpretation Comments BUN (test code = BUN) 16 7-22 [facility] SurgeryTtcctghXCKRTUCVAXXK1959-22-01 18:46:00 Test Item Value Reference Range Interpretation Comments Glucose Lvl (test code = Glucose Lvl) 141 70-99 [facility] SurgeryNhkjvsdRFANXNFOPCAD2386-10-03 18:46:00 Test Item Value Reference Range Interpretation Comments Albumin Lvl (test code = Albumin Lvl) 3.6 3.5-5.0 [facility] SurgeryVrzblteXLQCPREIUKIY5974-19-58 18:46:00 Test Item Value Reference Range Interpretation Comments Alk Phos (test code = Alk Phos) 65 39-136 [facility] SurgeryXxxiyvzAIPAZUVKKZJM9540-39-36 18:46:00 Test Item Value Reference Range Interpretation Comments Bili Total (test code = Bili Total) 0.3 0.2-1.3 [facility] SurgeryBdptnfmUEBIYQLMQIOS1260-95-29 18:46:00 Test Item Value Reference Range Interpretation Comments ALT (test code = ALT) 100 See_Comment [Auto mated message] The system which ge nerated this result transmit elizabeth reference range : <=65. The reference range was not used to interpr et this result as lukas l/abnormal. [facility] SurgeryXkvzlwpSMLJYFRUBDMQ3614-15-97 18:46:00 Test Item Value Reference Range Interpretation Comments AST (test code = AST) 53 See_Comment [Auto mated message] The system which ge nerated this result transmit elizabeth reference range : <=37. The reference range was not used to interpr et this result as lukas l/abnormal. [facility] SurgeryFusnxmaBJMMJEWLWSWC7347-03-41 18:46:00 Test Item Value Reference Range Interpretation Comments Total Protein (test code = Total 6.9 6.4-8.4 Protein) [facility] HospitalBilnezbZAELJDSAVQ5585-95-77 18:46:00 Test Item Value Reference Range Interpretation Comments Eosinophils (test code = 4.2 See_Comment [A utomated message] The Eosinophils) system which ge nerated this result tra nsmitted reference range : <=4.0. The reference r mitra was not used to int erpret this result as normal/abnormal . [facility] HospitalWawubioWQAEQCYFCN3716-22-12 18:46:00 Test Item Value Reference Range Interpretation Comments Segs (test code = Segs) 56.4 45.0-75.0 [facility] HospitalPnfaiiqDRBQFRITTH2513-80-37 18:46:00 Test Item Value Reference Range Interpretation Comments Monocytes (test code = Monocytes) 10.3 2.0-12.0 [facility] HospitalAvtpihkPHVSSZTDVN0095-75-08 18:46:00 Test Item Value Reference Range Interpretation Comments Lymphocytes (test code = Lymphocytes) 28.0 20.0-40.0 [facility] HospitalCyoimwgXYCAXEXTXS9130-23-50 18:46:00 Test Item Value Reference Range Interpretation Comments Monocytes # (test code 0.5 See_Comment [Aut omated message] The = Monocytes #) system which generated this result tra nsmitted reference range : <=0.8. The reference r mitra was not used to int erpret this result as normal/abnormal . [facility] HospitalAiaqnvmEJIWIKILLN8425-86-39 18:46:00 Test Item Value Reference Range Interpretation Comments Basophils (test code = 1.1 See_Comment [Aut omated message] The Basophils) system which ge nerated this result tra nsmitted reference range : <=1.0. The reference r mitra was not used to int erpret this result as normal/abnormal . [facility] HospitalPjqlponCIIMXEKTDX0098-66-28 18:46:00 Test Item Value Reference Range Interpretation Comments Lymphocytes # (test code = Lymphocytes 1.5 1.0-5.5 #) [facility] HospitalRawitupFILQNCJLUH0405-43-34 18:46:00 Test Item Value Reference Range Interpretation Comments Segs-Bands # (test code = Segs-Bands #) 2.9 1.5-8.1 [facility] HospitalVegrcimXJXKOBOEAS2890-09-74 18:46:00 Test Item Value Reference Range Interpretation Comments Eosinophils # (test code 0.2 See_Comment [A utomated message] The = Eosinophils #) system whic h generated this result tra nsmitted reference range : <=0.5. The reference r mitra was not used to int erpret this result as normal/abnormal . [facility] HospitalDgdznkyBPVQJJYSZZ5562-77-21 18:46:00 Test Item Value Reference Range Interpretation Comments Basophils # (test code 0.1 See_Comment [Aut omated message] The = Basophils #) system which generated this result tra nsmitted reference range : <=0.2. The reference r mitra was not used to int erpret this result as normal/abnormal . [facility] HospitalIyemqpyABLMEKCGTI5617-38-02 18:46:00 Test Item Value Reference Range Interpretation Comments PT (test code = PT) 11.2 s 12.0-14.7 [facility] HospitalYnryzvmZJXJEZDSDQ1494-44-40 18:46:00 Test Item Value Reference Range Interpretation Comments INR (test code = INR) 0.82 0.85-1.17 [facility] HospitalLaakmitSUSNGOOQJW7634-25-56 18:46:00 Test Item Value Reference Range Interpretation Comments PTT (test code = PTT) 28.6 s 22.9-35.8 [facility] HospitalAjeycunIYDCDQPHJJ5828-29-17 18:46:00 Test Item Value Reference Range Interpretation Comments MPV (test code = MPV) 8.1 7.4-10.4 [facility] HospitalLgrfkkuWMLJZVTEWI9087-91-29 18:46:00 Test Item Value Reference Range Interpretation Comments Platelet (test code = Platelet) 301 133450 [facility]XsdnzoqQWPXAQCLQO1767-32-44 18:46:00 Test Item Value Reference Range Interpretation Comments RDW (test code = RDW) 14.5 11.5-14.5 [facility]TjcwzqxKYJELPFHIO1797-41-62 18:46:00 Test Item Value Reference Range Interpretation Comments RBC (test code = RBC) 4.84 4.70-6.10 [facility]QnrlyyoKKWYJTXBLU8690-74-45 18:46:00 Test Item Value Reference Range Interpretation Comments Hgb (test code = Hgb) 14.4 14.0-18.0 [facility] HospitalOxavjpeCVMHDVRWEM9214-10-48 18:46:00 Test Item Value Reference Range Interpretation Comments WBC (test code = WBC) 5.2 3.7-10.4 [facility] HospitalWsltfcfLFRJEAEGWW5376-37-28 18:46:00 Test Item Value Reference Range Interpretation Comments MCH (test code = MCH) 29.8 pg 27.0-31.0 [facility] HospitalJbdssyaDEHUHODRBT6883-45-56 18:46:00 Test Item Value Reference Range Interpretation Comments MCV (test code = MCV) 92.0 80.0-94.0 [facility]MqucsnnCZSCJKVSRX2760-36-74 18:46:00 Test Item Value Reference Range Interpretation Comments Hct (test code = Hct) 44.5 42.0-54.0 [facility] HospitalKtfvscaIYNQHDEFNB1415-33-85 18:46:00 Test Item Value Reference Range Interpretation Comments MCHC (test code = MCHC) 32.4 32.0-36.0 [facility] CenterOywwsrxVCJGBJIICU7478-38-37 18:46:00 Test Item Value Reference Range Interpretation Comments [place]-Hep C Ab (test Negative *NA*(07/22/14 code = [place]-Hep C 1:46 PM) Ab) [facility] [id number] 18:46:00 Test Item Value Reference Range Interpretation Comments UA Urobilinogen (test code = UA <=1.0 mg/dL 0.1-1.0 Urobilinogen) [facility] [id number] 18:46:00 Test Item Value Reference Range Interpretation Comments UA Sq Epi (test code = UA Sq Epi) None Seen [facility] [id number] 18:46:00 Test Item Value Reference Range Interpretation Comments UA Leuk Est (test Negative (07/22/14 1:46 code = UA Leuk Est) PM) [facility] AND [id number] 18:46:00 Test Item Value Reference Range Interpretation Comments UA Nitrite (test code Negative (07/22/14 1:46 = UA Nitrite) PM) [facility] AND [id number] 18:46:00 Test Item Value Reference Range Interpretation Comments UA Blood (test code = Negative (07/22/14 1:46 UA Blood) PM) [facility] AND [id number] 18:46:00 Test Item Value Reference Range Interpretation Comments UA Ketones (test code = UA Negative mg/dL Ketones) [facility] AND [id number] 18:46:00 Test Item Value Reference Range Interpretation Comments UA Bili (test code = Negative *NA*(07/22/14 UA Bili) 1:46 PM) [facility] AND [id number] 18:46:00 Test Item Value Reference Range Interpretation Comments UA Bacteria (test code = UA Occasional /HPF Bacteria) [facility] AND [id number] 18:46:00 Test Item Value Reference Range Interpretation Comments UA RBC (test code = no gt See_Comment [Automa elizabeth message] The UA RBC) system which ge nerated this result transmit elizabeth reference range : <=2. The reference range was not used to interpr et this result as lukas l/abnormal. [facility] AND [id number] 18:46:00 Test Item Value Reference Range Interpretation Comments UA WBC (test code = 1 See_Comment [Automa elizabeth message] The UA WBC) system which ge nerated this result transmit elizabeth reference range : <=5. The reference range was not used to interpr et this result as lukas l/abnormal. [facility] AND [id number] 18:46:00 Test Item Value Reference Range Interpretation Comments UA Glucose (test code = UA Glucose) 30 mg/dL [facility] AND [id number] 18:46:00 Test Item Value Reference Range Interpretation Comments UA Protein (test code = UA Negative mg/dL Protein) [facility] AND [id number] 18:46:00 Test Item Value Reference Range Interpretation Comments UA pH (test code = UA pH) 6.5 5.0-8.0 [facility] [id number] 18:46:00 Test Item Value Reference Range Interpretation Comments UA Turbidity (test code = Clear (07/22/14 1:46 UA Turbidity) PM) [facility] [id number] 18:46:00 Test Item Value Reference Range Interpretation Comments UA Spec Grav (test code = UA Spec Grav) 1.010 [facility] AND [id number] 18:46:00 Test Item Value Reference Range Interpretation Comments UA Color (test code = Light Yellow UA Color) *NA*(07/22/14 1:46 PM) [facility] [id number] 18:46:00 Test Item Value Reference Range Interpretation Comments Magnesium Lvl (test code = Magnesium 1.8 1.8-2.4 Lvl) [facility]TallgxhGXYTVNJXUQFR7997-63-40 18:46:00 Test Item Value Reference Range Interpretation Comments AGAP (test code = AGAP) 13.2 10.0-20.0 [facility] SurgeryAjuhpxtNIVDRLOLNYCM7931-23-11 18:46:00 Test Item Value Reference Range Interpretation Comments B/C Ratio (test code = B/C Ratio) 18 6-25 [facility] SurgeryOgiuotqCRWAWPKWSJRA6094-82-42 18:46:00 Test Item Value Reference Range Interpretation Comments A/G Ratio (test code = A/G Ratio) 1.1 0.7-1.6 [facility] SurgeryTknsbftBJGUYJGRNFYC1722-51-99 18:46:00 Test Item Value Reference Range Interpretation Comments Globulin (test code = Globulin) 3.3 2.0-4.0 [facility] SystemIinqgvgXUMDBNWCZILB2069-09-76 18:46:00 Test Item Value Reference Range Interpretation Comments eGFR (test code = eGFR) 99 [facility] SurgeryNslxqtvATIVXGKISCQD1811-25-22 18:46:00 Test Item Value Reference Range Interpretation Comments Calcium Lvl (test code = Calcium Lvl) 9.0 8.5-10.5 [facility] SystemPsfoejdJPRERKUWACXM3221-03-53 18:46:00 Test Item Value Reference Range Interpretation Comments Chloride Lvl (test code = Chloride Lvl) 106 95-109 [facility] SurgeryZaufkvfAEGXCGTCDKFH7594-72-76 18:46:00 Test Item Value Reference Range Interpretation Comments Creatinine Lvl (test code = Creatinine 0.9 0.5-1.4 Lvl) [facility] SurgeryVrceqnuZYTXNEEOLMXA8277-02-23 18:46:00 Test Item Value Reference Range Interpretation Comments Potassium Lvl (test code = Potassium 4.2 3.5-5.1 Lvl) [facility] SurgeryLzhqewhFBIKWZFJGSHS5009-28-83 18:46:00 Test Item Value Reference Range Interpretation Comments Sodium Lvl (test code = Sodium Lvl) 139 135-145 [facility] SurgeryVrcywuuIELHELBQMBBD8084-93-84 18:46:00 Test Item Value Reference Range Interpretation Comments CO2 (test code = CO2) 24 24-32 [facility] SurgeryGzumvjlQPQFYNRXEMWH2433-48-36 18:46:00 Test Item Value Reference Range Interpretation Comments BUN (test code = BUN) 16 7-22 [facility] SurgeryLthtetuMGQYHITHJNDH9826-38-95 18:46:00 Test Item Value Reference Range Interpretation Comments Glucose Lvl (test code = Glucose Lvl) 141 70-99 [facility] SurgeryFjybtzsKMOXDKMUPCVN8509-44-68 18:46:00 Test Item Value Reference Range Interpretation Comments Albumin Lvl (test code = Albumin Lvl) 3.6 3.5-5.0 [facility] SurgeryRtrlhczIMIUWRPQWIKU2619-17-69 18:46:00 Test Item Value Reference Range Interpretation Comments Alk Phos (test code = Alk Phos) 65 39-136 [facility] SurgeryWljmkogJSXRBOUIRTBO6817-62-70 18:46:00 Test Item Value Reference Range Interpretation Comments Bili Total (test code = Bili Total) 0.3 0.2-1.3 [facility] SurgeryVicetgqRSXUMKQYAUPF7449-50-73 18:46:00 Test Item Value Reference Range Interpretation Comments ALT (test code = ALT) 100 See_Comment [Auto mated message] The system which ge nerated this result transmit elizabeth reference range : <=65. The reference range was not used to interpr et this result as lukas l/abnormal. [facility] SurgeryThxlbenIKUUXYPCQXUT4561-95-78 18:46:00 Test Item Value Reference Range Interpretation Comments AST (test code = AST) 53 See_Comment [Auto mated message] The system which ge nerated this result transmit elizabeth reference range : <=37. The reference range was not used to interpr et this result as lukas l/abnormal. [facility] SurgeryErpygthPKTTHZRTSXRX4511-81-34 18:46:00 Test Item Value Reference Range Interpretation Comments Total Protein (test code = Total 6.9 6.4-8.4 Protein) [facility] HospitalNlieuxgGTGSRJHYCW7032-98-06 18:46:00 Test Item Value Reference Range Interpretation Comments Eosinophils (test code = 4.2 See_Comment [A utomated message] The Eosinophils) system which ge nerated this result tra nsmitted reference range : <=4.0. The reference r mitra was not used to int erpret this result as normal/abnormal . [facility] HospitalZhurohaXNKPKVFBFE5039-60-27 18:46:00 Test Item Value Reference Range Interpretation Comments Segs (test code = Segs) 56.4 45.0-75.0 [facility] HospitalUcpiqmaJFXBKZEOIY2408-34-57 18:46:00 Test Item Value Reference Range Interpretation Comments Monocytes (test code = Monocytes) 10.3 2.0-12.0 [facility] HospitalYqnulifWRACUBTACO6432-20-25 18:46:00 Test Item Value Reference Range Interpretation Comments Lymphocytes (test code = Lymphocytes) 28.0 20.0-40.0 [facility] HospitalIvhcsveCTDVXITOHW3549-06-97 18:46:00 Test Item Value Reference Range Interpretation Comments Monocytes # (test code 0.5 See_Comment [Aut omated message] The = Monocytes #) system which generated this result tra nsmitted reference range : <=0.8. The reference r mitra was not used to int erpret this result as normal/abnormal . [facility] HospitalIqubijoKEMMTVQMZB0969-42-29 18:46:00 Test Item Value Reference Range Interpretation Comments Basophils (test code = 1.1 See_Comment [Aut omated message] The Basophils) system which ge nerated this result tra nsmitted reference range : <=1.0. The reference r mitra was not used to int erpret this result as normal/abnormal . [facility] HospitalZfnbzgfHPWBQOYYAI8203-82-12 18:46:00 Test Item Value Reference Range Interpretation Comments Lymphocytes # (test code = Lymphocytes 1.5 1.0-5.5 #) [facility] HospitalRuvnhswPVKKGWNTPT7616-58-82 18:46:00 Test Item Value Reference Range Interpretation Comments Segs-Bands # (test code = Segs-Bands #) 2.9 1.5-8.1 [facility] HospitalHxdngllDEWFMARRRR4979-25-39 18:46:00 Test Item Value Reference Range Interpretation Comments Eosinophils # (test code 0.2 See_Comment [A utomated message] The = Eosinophils #) system whic h generated this result tra nsmitted reference range : <=0.5. The reference r mitra was not used to int erpret this result as normal/abnormal . [facility] HospitalGwgqkwkDEEIRCGVMW2025-65-57 18:46:00 Test Item Value Reference Range Interpretation Comments Basophils # (test code 0.1 See_Comment [Aut omated message] The = Basophils #) system which generated this result tra nsmitted reference range : <=0.2. The reference r mitra was not used to int erpret this result as normal/abnormal . [facility] HospitalZrotufrPVPZLNICPI1340-43-62 18:46:00 Test Item Value Reference Range Interpretation Comments PT (test code = PT) 11.2 s 12.0-14.7 [facility] HospitalZudkknsLNAVIUYVJM8975-14-02 18:46:00 Test Item Value Reference Range Interpretation Comments INR (test code = INR) 0.82 0.85-1.17 [facility] HospitalYgqqihdXYUZZGZCPX5256-72-85 18:46:00 Test Item Value Reference Range Interpretation Comments PTT (test code = PTT) 28.6 s 22.9-35.8 [facility] HospitalBztxnnfNHHUHAFBTT8763-37-11 18:46:00 Test Item Value Reference Range Interpretation Comments MPV (test code = MPV) 8.1 7.4-10.4 [facility] HospitalZiqkpmlAEZZHIKWGP9473-77-00 18:46:00 Test Item Value Reference Range Interpretation Comments Platelet (test code = Platelet) 301 133-450 [facility] HospitalKxnsqazLXXNGIAOEN7028-34-63 18:46:00 Test Item Value Reference Range Interpretation Comments RDW (test code = RDW) 14.5 11.5-14.5 [facility] HospitalBggzifyEBBOHLSPQQ6124-35-47 18:46:00 Test Item Value Reference Range Interpretation Comments RBC (test code = RBC) 4.84 4.70-6.10 [facility] HospitalJobqnzeOMVNWWHQMT4159-38-87 18:46:00 Test Item Value Reference Range Interpretation Comments Hgb (test code = Hgb) 14.4 14.0-18.0 [facility] HospitalJwevtkvMFDXEJMION3672-89-49 18:46:00 Test Item Value Reference Range Interpretation Comments WBC (test code = WBC) 5.2 3.7-10.4 [facility] RokcrkqXLGREPRVLJ0805-86-89 18:46:00 Test Item Value Reference Range Interpretation Comments MCH (test code = MCH) 29.8 pg 27.0-31.0 [facility] UlocfphHCYRJXSTEM7257-38-13 18:46:00 Test Item Value Reference Range Interpretation Comments MCV (test code = MCV) 92.0 80.0-94.0 [facility] MvfhbqlMXTUPYQKNS4809-86-84 18:46:00 Test Item Value Reference Range Interpretation Comments Hct (test code = Hct) 44.5 42.0-54.0 [facility]OluenjeRWTEQIKSMS2852-78-30 18:46:00 Test Item Value Reference Range Interpretation Comments MCHC (test code = MCHC) 32.4 32.0-36.0 [facility] CenterEymxrleLYOYSRNOLW1542-61-81 18:46:00 Test Item Value Reference Range Interpretation Comments [place]-Hep C Ab (test Negative *NA*(07/22/14 code = [place]-Hep C 1:46 PM) Ab) [facility] AND [id number] 18:46:00 Test Item Value Reference Range Interpretation Comments UA Urobilinogen (test code = UA <=1.0 mg/dL 0.1-1.0 Urobilinogen) [facility] AND [id number] 18:46:00 Test Item Value Reference Range Interpretation Comments UA Sq Epi (test code = UA Sq Epi) None Seen [facility] AND [id number] 18:46:00 Test Item Value Reference Range Interpretation Comments UA Leuk Est (test Negative (07/22/14 1:46 code = UA Leuk Est) PM) [facility] AND [id number] 18:46:00 Test Item Value Reference Range Interpretation Comments UA Nitrite (test code Negative (07/22/14 1:46 = UA Nitrite) PM) [facility] AND [id number] 18:46:00 Test Item Value Reference Range Interpretation Comments UA Blood (test code = Negative (07/22/14 1:46 UA Blood) PM) [facility] AND [id number] 18:46:00 Test Item Value Reference Range Interpretation Comments UA Ketones (test code = UA Negative mg/dL Ketones) [facility] AND [id number] 18:46:00 Test Item Value Reference Range Interpretation Comments UA Bili (test code = Negative *NA*(07/22/14 UA Bili) 1:46 PM) [facility] AND [id number] 18:46:00 Test Item Value Reference Range Interpretation Comments UA Bacteria (test code = UA Occasional /HPF Bacteria) [facility] AND [id number] 18:46:00 Test Item Value Reference Range Interpretation Comments UA RBC (test code = no gt See_Comment [Automa elizabeth message] The UA RBC) system which ge nerated this result transmit elizabeth reference range : <=2. The reference range was not used to interpr et this result as lukas l/abnormal. [facility] AND [id number] 18:46:00 Test Item Value Reference Range Interpretation Comments UA WBC (test code = 1 See_Comment [Automa elizabeth message] The UA WBC) system which ge nerated this result transmit elizabeth reference range : <=5. The reference range was not used to interpr et this result as lukas l/abnormal. [facility] AND [id number] 18:46:00 Test Item Value Reference Range Interpretation Comments UA Glucose (test code = UA Glucose) 30 mg/dL [facility] AND [id number] 18:46:00 Test Item Value Reference Range Interpretation Comments UA Protein (test code = UA Negative mg/dL Protein) [facility] AND [id number] 18:46:00 Test Item Value Reference Range Interpretation Comments UA pH (test code = UA pH) 6.5 5.0-8.0 [facility] AND [id number] 18:46:00 Test Item Value Reference Range Interpretation Comments UA Turbidity (test code = Clear (07/22/14 1:46 UA Turbidity) PM) [facility] AND [id number] 18:46:00 Test Item Value Reference Range Interpretation Comments UA Spec Grav (test code = UA Spec Grav) 1.010 [facility] AND [id number] 18:46:00 Test Item Value Reference Range Interpretation Comments UA Color (test code = Light Yellow UA Color) *NA*(07/22/14 1:46 PM) [facility]2015-06-09 18:46:00 Test Item Value Reference Range Interpretation Comments Magnesium Lvl (test code = Magnesium 1.8 1.8-2.4 Lvl) [facility] SurgeryIqnxwsbKLUHHQKEATGN2507-18-09 18:46:00 Test Item Value Reference Range Interpretation Comments AGAP (test code = AGAP) 13.2 10.0-20.0 [facility] SurgeryRqsjqwmGQSLEIVHRTFI8570-99-24 18:46:00 Test Item Value Reference Range Interpretation Comments B/C Ratio (test code = B/C Ratio) 18 6-25 [facility] SurgeryKqkzyrfMZCQMORVRKZN4988-47-30 18:46:00 Test Item Value Reference Range Interpretation Comments A/G Ratio (test code = A/G Ratio) 1.1 0.7-1.6 [facility] SurgeryLartvfoMOJHCSDKHQIS3953-01-24 18:46:00 Test Item Value Reference Range Interpretation Comments Globulin (test code = Globulin) 3.3 2.0-4.0 [facility] SurgeryLfueioxZDCZWDBQFPKN0540-10-17 18:46:00 Test Item Value Reference Range Interpretation Comments eGFR (test code = eGFR) 99 [facility] SurgeryEjssxcbBTNOSHHMTDHT5972-53-39 18:46:00 Test Item Value Reference Range Interpretation Comments Calcium Lvl (test code = Calcium Lvl) 9.0 8.5-10.5 [facility] SurgeryHurgmhlQTCHNHLSVBCP9489-28-41 18:46:00 Test Item Value Reference Range Interpretation Comments Chloride Lvl (test code = Chloride Lvl) 106 95-109 [facility] SurgeryUibdbbmHTXJDGUTRBYC7294-91-43 18:46:00 Test Item Value Reference Range Interpretation Comments Creatinine Lvl (test code = Creatinine 0.9 0.5-1.4 Lvl) [facility] SurgeryGjqgdkbQMGFNFSTXGRE2291-51-70 18:46:00 Test Item Value Reference Range Interpretation Comments Potassium Lvl (test code = Potassium 4.2 3.5-5.1 Lvl) [facility] SurgeryCgrxwotPEYABEXLWSOV4493-26-01 18:46:00 Test Item Value Reference Range Interpretation Comments Sodium Lvl (test code = Sodium Lvl) 139 135-145 [facility] SurgerySbfzvixTPBQXIQAGIFE0143-18-76 18:46:00 Test Item Value Reference Range Interpretation Comments CO2 (test code = CO2) 24 24-32 [facility] SurgeryTxqymtvWDDMRKRPMWFA0551-88-55 18:46:00 Test Item Value Reference Range Interpretation Comments BUN (test code = BUN) 16 7-22 [facility] SurgeryCarmkiaSHVGXMJASCBC1740-08-05 18:46:00 Test Item Value Reference Range Interpretation Comments Glucose Lvl (test code = Glucose Lvl) 141 70-99 [facility] SurgeryPgthdfrJZXUDVVBVHMO8003-61-57 18:46:00 Test Item Value Reference Range Interpretation Comments Albumin Lvl (test code = Albumin Lvl) 3.6 3.5-5.0 [facility] SurgeryDecrkhrHSZOAJGLUCOP2003-86-38 18:46:00 Test Item Value Reference Range Interpretation Comments Alk Phos (test code = Alk Phos) 65 39-136 [facility] SurgeryEammpcwFOEIKHLMIIIY1920-54-25 18:46:00 Test Item Value Reference Range Interpretation Comments Bili Total (test code = Bili Total) 0.3 0.2-1.3 [facility] SurgeryKjzbwcqFRZBLVOVKZVZ6756-80-29 18:46:00 Test Item Value Reference Range Interpretation Comments ALT (test code = ALT) 100 See_Comment [Auto mated message] The system which ge nerated this result transmit elizabeth reference range : <=65. The reference range was not used to interpr et this result as lukas l/abnormal. [facility] SurgeryLrfzbpcSJQZHRTKEWQY0353-52-00 18:46:00 Test Item Value Reference Range Interpretation Comments AST (test code = AST) 53 See_Comment [Auto mated message] The system which ge nerated this result transmit elizabeth reference range : <=37. The reference range was not used to interpr et this result as lukas l/abnormal. [facility] SurgeryPxessmrFGTVOTTYTIIK7344-79-82 18:46:00 Test Item Value Reference Range Interpretation Comments Total Protein (test code = Total 6.9 6.4-8.4 Protein) [facility] HospitalQgtpiqaAEECPAXCCV1472-91-32 18:46:00 Test Item Value Reference Range Interpretation Comments Eosinophils (test code = 4.2 See_Comment [A utomated message] The Eosinophils) system which ge nerated this result tra nsmitted reference range : <=4.0. The reference r mitra was not used to int erpret this result as normal/abnormal . [facility] HospitalVwutuldVZHHUAXAAL0825-26-87 18:46:00 Test Item Value Reference Range Interpretation Comments Segs (test code = Segs) 56.4 45.0-75.0 [facility] HospitalQfjshvoDTVHPXXWJT8744-24-82 18:46:00 Test Item Value Reference Range Interpretation Comments Monocytes (test code = Monocytes) 10.3 2.0-12.0 [facility] HospitalPrluxflUBTAGMONRM9282-71-06 18:46:00 Test Item Value Reference Range Interpretation Comments Lymphocytes (test code = Lymphocytes) 28.0 20.0-40.0 [facility] HospitalBjlztqeXPTCRWIZWW9846-25-15 18:46:00 Test Item Value Reference Range Interpretation Comments Monocytes # (test code 0.5 See_Comment [Aut omated message] The = Monocytes #) system which generated this result tra nsmitted reference range : <=0.8. The reference r mitra was not used to int erpret this result as normal/abnormal . [facility] HospitalLhypfwyFNKSHQGMKM0000-93-15 18:46:00 Test Item Value Reference Range Interpretation Comments Basophils (test code = 1.1 See_Comment [Aut omated message] The Basophils) system which ge nerated this result tra nsmitted reference range : <=1.0. The reference r mitra was not used to int erpret this result as normal/abnormal . [facility] HospitalXrceotlERFXZPIRWH1040-64-16 18:46:00 Test Item Value Reference Range Interpretation Comments Lymphocytes # (test code = Lymphocytes 1.5 1.0-5.5 #) [facility] HospitalBtfoqqaASENBOEXZZ8191-97-11 18:46:00 Test Item Value Reference Range Interpretation Comments Segs-Bands # (test code = Segs-Bands #) 2.9 1.5-8.1 [facility] HospitalTwbmlzsQQRNDTCCUO3528-97-82 18:46:00 Test Item Value Reference Range Interpretation Comments Eosinophils # (test code 0.2 See_Comment [A utomated message] The = Eosinophils #) system whic h generated this result tra nsmitted reference range : <=0.5. The reference r mitra was not used to int erpret this result as normal/abnormal . [facility] HospitalSihztrvONMARGQZNV6698-78-83 18:46:00 Test Item Value Reference Range Interpretation Comments Basophils # (test code 0.1 See_Comment [Aut omated message] The = Basophils #) system which generated this result tra nsmitted reference range : <=0.2. The reference r mitra was not used to int erpret this result as normal/abnormal . [facility] HospitalOnbsjllLNPIYFRAJY8222-40-34 18:46:00 Test Item Value Reference Range Interpretation Comments PT (test code = PT) 11.2 s 12.0-14.7 [facility] HospitalHehjkuwHCXDYTAJKU3017-76-60 18:46:00 Test Item Value Reference Range Interpretation Comments INR (test code = INR) 0.82 0.85-1.17 [facility] HospitalRnpdipiTWGJAXKNEG4490-92-70 18:46:00 Test Item Value Reference Range Interpretation Comments PTT (test code = PTT) 28.6 s 22.9-35.8 [facility] HospitalWcdpthgSZPYIRIZPN4504-64-48 18:46:00 Test Item Value Reference Range Interpretation Comments MPV (test code = MPV) 8.1 7.4-10.4 [facility] HospitalAmcsprcPSYKUGODPO4288-71-28 18:46:00 Test Item Value Reference Range Interpretation Comments Platelet (test code = Platelet) 301 133-450 [facility] HospitalDjxhtfbZNMVMNDFSI8718-14-19 18:46:00 Test Item Value Reference Range Interpretation Comments RDW (test code = RDW) 14.5 11.5-14.5 [facility] HospitalRwkmcbcQFUDSBYDHK0624-42-85 18:46:00 Test Item Value Reference Range Interpretation Comments RBC (test code = RBC) 4.84 4.70-6.10 [facility] HospitalFhxxjsvQAELZPEJSG1030-72-31 18:46:00 Test Item Value Reference Range Interpretation Comments Hgb (test code = Hgb) 14.4 14.0-18.0 [facility] HospitalAlldgiuVHNPVGEDWI6866-97-22 18:46:00 Test Item Value Reference Range Interpretation Comments WBC (test code = WBC) 5.2 3.7-10.4 [facility] HospitalNmeodobJWTQROIWSE1656-61-62 18:46:00 Test Item Value Reference Range Interpretation Comments MCH (test code = MCH) 29.8 pg 27.0-31.0 [facility] HospitalQjeqnvsPGMBSBEQEX8149-99-18 18:46:00 Test Item Value Reference Range Interpretation Comments MCV (test code = MCV) 92.0 80.0-94.0 [facility] HospitalZmjmdeuLXEMXLDHEQ7927-70-39 18:46:00 Test Item Value Reference Range Interpretation Comments Hct (test code = Hct) 44.5 42.0-54.0 [facility]IiyzdvxUSVKJQCWEE8401-18-72 18:46:00 Test Item Value Reference Range Interpretation Comments MCHC (test code = MCHC) 32.4 32.0-36.0 [facility]GCUWOLQMTX8411-64-44 18:46:00 Test Item Value Reference Range Interpretation Comments [place]-Hep C Ab (test Negative *NA*(07/22/14 code = [place]-Hep C 1:46 PM) Ab) [facility] AND [id number] 18:46:00 Test Item Value Reference Range Interpretation Comments UA Urobilinogen (test code = UA <=1.0 mg/dL 0.1-1.0 Urobilinogen) [facility] AND [id number] 18:46:00 Test Item Value Reference Range Interpretation Comments UA Sq Epi (test code = UA Sq Epi) None Seen [facility] AND [id number] 18:46:00 Test Item Value Reference Range Interpretation Comments UA Leuk Est (test Negative (07/22/14 1:46 code = UA Leuk Est) PM) [facility] AND [id number] 18:46:00 Test Item Value Reference Range Interpretation Comments UA Nitrite (test code Negative (07/22/14 1:46 = UA Nitrite) PM) [facility] AND [id number] 18:46:00 Test Item Value Reference Range Interpretation Comments UA Blood (test code = Negative (07/22/14 1:46 UA Blood) PM) [facility] AND [id number] 18:46:00 Test Item Value Reference Range Interpretation Comments UA Ketones (test code = UA Negative mg/dL Ketones) [facility] AND [id number] 18:46:00 Test Item Value Reference Range Interpretation Comments UA Bili (test code = Negative *NA*(07/22/14 UA Bili) 1:46 PM) [facility] AND [id number] 18:46:00 Test Item Value Reference Range Interpretation Comments UA Bacteria (test code = UA Occasional /HPF Bacteria) [facility] AND [id number] 18:46:00 Test Item Value Reference Range Interpretation Comments UA RBC (test code = no gt See_Comment [Automa elizabeth message] The UA RBC) system which ge nerated this result transmit elizabeth reference range : <=2. The reference range was not used to interpr et this result as lukas l/abnormal. [facility] AND [id number] 18:46:00 Test Item Value Reference Range Interpretation Comments UA WBC (test code = 1 See_Comment [Automa elizabeth message] The UA WBC) system which ge nerated this result transmit elizabeth reference range : <=5. The reference range was not used to interpr et this result as lukas l/abnormal. [facility] AND [id number] 18:46:00 Test Item Value Reference Range Interpretation Comments UA Glucose (test code = UA Glucose) 30 mg/dL [facility] AND [id number] 18:46:00 Test Item Value Reference Range Interpretation Comments UA Protein (test code = UA Negative mg/dL Protein) [facility] AND [id number] 18:46:00 Test Item Value Reference Range Interpretation Comments UA pH (test code = UA pH) 6.5 5.0-8.0 [facility] AND [id number] 18:46:00 Test Item Value Reference Range Interpretation Comments UA Turbidity (test code = Clear (07/22/14 1:46 UA Turbidity) PM) [facility] AND [id number] 18:46:00 Test Item Value Reference Range Interpretation Comments UA Spec Grav (test code = UA Spec Grav) 1.010 [facility] AND [id number] 18:46:00 Test Item Value Reference Range Interpretation Comments UA Color (test code = Light Yellow UA Color) *NA*(07/22/14 1:46 PM) [facility] [id number] 18:46:00 Test Item Value Reference Range Interpretation Comments Magnesium Lvl (test code = Magnesium 1.8 1.8-2.4 Lvl) [facility]MfsyhofIPKGSXWBSXOW6929-34-38 18:46:00 Test Item Value Reference Range Interpretation Comments AGAP (test code = AGAP) 13.2 10.0-20.0 [facility] SurgeryFumlsudUFDDVYYGJAVS1159-30-08 18:46:00 Test Item Value Reference Range Interpretation Comments B/C Ratio (test code = B/C Ratio) 18 6-25 [facility] SurgeryVxqjuckXHPAMQNEAJIR3377-76-41 18:46:00 Test Item Value Reference Range Interpretation Comments A/G Ratio (test code = A/G Ratio) 1.1 0.7-1.6 [facility] SurgeryCfwslubHKJXOJXQKOAL7971-38-49 18:46:00 Test Item Value Reference Range Interpretation Comments Globulin (test code = Globulin) 3.3 2.0-4.0 [facility] SurgeryRdmlprrBCWUEYFOHREO2442-68-66 18:46:00 Test Item Value Reference Range Interpretation Comments eGFR (test code = eGFR) 99 [facility] SurgeryRyiflrpHBPXXTOAMCGJ8457-76-21 18:46:00 Test Item Value Reference Range Interpretation Comments Calcium Lvl (test code = Calcium Lvl) 9.0 8.5-10.5 [facility] SurgeryOnfpultVGQCZGQDONZG4390-78-40 18:46:00 Test Item Value Reference Range Interpretation Comments Chloride Lvl (test code = Chloride Lvl) 106 95-109 [facility] SurgeryJvmitjrIVZCFQWPIYEB8279-44-17 18:46:00 Test Item Value Reference Range Interpretation Comments Creatinine Lvl (test code = Creatinine 0.9 0.5-1.4 Lvl) [facility] SurgeryTosvnsbUHFASUOBWQYS9687-07-67 18:46:00 Test Item Value Reference Range Interpretation Comments Potassium Lvl (test code = Potassium 4.2 3.5-5.1 Lvl) [facility] SurgeryBlkuyocFLSVNZCHQNKO9129-91-61 18:46:00 Test Item Value Reference Range Interpretation Comments Sodium Lvl (test code = Sodium Lvl) 139 135-145 [facility] SurgeryIabupdyOJKIYCUWPSME9878-65-88 18:46:00 Test Item Value Reference Range Interpretation Comments CO2 (test code = CO2) 24 24-32 [facility] SurgeryEbtdqexLFTSYPUAGZNW7743-85-00 18:46:00 Test Item Value Reference Range Interpretation Comments BUN (test code = BUN) 16 7-22 [facility] SurgeryMspglycVWSFRDSWRDQI4511-45-41 18:46:00 Test Item Value Reference Range Interpretation Comments Glucose Lvl (test code = Glucose Lvl) 141 70-99 [facility] SurgeryKapyuggWGGRXPPYAOOB1319-80-15 18:46:00 Test Item Value Reference Range Interpretation Comments Albumin Lvl (test code = Albumin Lvl) 3.6 3.5-5.0 [facility] SurgeryXbcffzpXFJICRLAXDGV7969-75-44 18:46:00 Test Item Value Reference Range Interpretation Comments Alk Phos (test code = Alk Phos) 65 39-136 [facility] SurgeryUbswmvsUYSHWJHICEPV6146-95-73 18:46:00 Test Item Value Reference Range Interpretation Comments Bili Total (test code = Bili Total) 0.3 0.2-1.3 [facility] SurgeryMbewrilPURSAGHEPDBU5510-96-70 18:46:00 Test Item Value Reference Range Interpretation Comments ALT (test code = ALT) 100 See_Comment [Auto mated message] The system which ge nerated this result transmit elizabeth reference range : <=65. The reference range was not used to interpr et this result as lukas l/abnormal. [facility] SurgeryFldkchmFBZWADNJGSER1929-00-72 18:46:00 Test Item Value Reference Range Interpretation Comments AST (test code = AST) 53 See_Comment [Auto mated message] The system which ge nerated this result transmit elizabeth reference range : <=37. The reference range was not used to interpr et this result as lukas l/abnormal. [facility] SurgeryXoxpampYGJIVFSNLTRI3308-69-89 18:46:00 Test Item Value Reference Range Interpretation Comments Total Protein (test code = Total 6.9 6.4-8.4 Protein) [facility] HospitalCimoimrYSIUKGWMTV7762-45-55 18:46:00 Test Item Value Reference Range Interpretation Comments Eosinophils (test code = 4.2 See_Comment [A utomated message] The Eosinophils) system which ge nerated this result tra nsmitted reference range : <=4.0. The reference r mitra was not used to int erpret this result as normal/abnormal . [facility] HospitalBnrwuqxSMPBXYQOVL4501-25-65 18:46:00 Test Item Value Reference Range Interpretation Comments Segs (test code = Segs) 56.4 45.0-75.0 [facility] HospitalWbcwmmaOKDNKINZYQ5156-92-80 18:46:00 Test Item Value Reference Range Interpretation Comments Monocytes (test code = Monocytes) 10.3 2.0-12.0 [facility] HospitalAuawybhLFKTQFWPFL0231-53-94 18:46:00 Test Item Value Reference Range Interpretation Comments Lymphocytes (test code = Lymphocytes) 28.0 20.0-40.0 [facility] HospitalQsoqrigNANQBKZCWH0952-66-62 18:46:00 Test Item Value Reference Range Interpretation Comments Monocytes # (test code 0.5 See_Comment [Aut omated message] The = Monocytes #) system which generated this result tra nsmitted reference range : <=0.8. The reference r mitra was not used to int erpret this result as normal/abnormal . [facility] HospitalPiuhvrrIFYKVKFPIY6345-89-30 18:46:00 Test Item Value Reference Range Interpretation Comments Basophils (test code = 1.1 See_Comment [Aut omated message] The Basophils) system which ge nerated this result tra nsmitted reference range : <=1.0. The reference r mitra was not used to int erpret this result as normal/abnormal . [facility] HospitalRoaoymbBKAUAZDCTR8878-29-59 18:46:00 Test Item Value Reference Range Interpretation Comments Lymphocytes # (test code = Lymphocytes 1.5 1.0-5.5 #) [facility] HospitalDhlnpobOBCXBSUQNQ3429-34-87 18:46:00 Test Item Value Reference Range Interpretation Comments Segs-Bands # (test code = Segs-Bands #) 2.9 1.5-8.1 [facility] HospitalYsrvjmtUHSEOPEKTD4777-40-97 18:46:00 Test Item Value Reference Range Interpretation Comments Eosinophils # (test code 0.2 See_Comment [A utomated message] The = Eosinophils #) system whic h generated this result tra nsmitted reference range : <=0.5. The reference r mitra was not used to int erpret this result as normal/abnormal . [facility] HospitalIpxhhuaRLWTWWUOWL3804-39-01 18:46:00 Test Item Value Reference Range Interpretation Comments Basophils # (test code 0.1 See_Comment [Aut omated message] The = Basophils #) system which generated this result tra nsmitted reference range : <=0.2. The reference r mitra was not used to int erpret this result as normal/abnormal . [facility] HospitalAesrtpfXVJHATVBGU1176-95-28 18:46:00 Test Item Value Reference Range Interpretation Comments PT (test code = PT) 11.2 s 12.0-14.7 [facility] HospitalPastswzPABNAIQBYJ9916-03-62 18:46:00 Test Item Value Reference Range Interpretation Comments INR (test code = INR) 0.82 0.85-1.17 [facility] HospitalMmsmgtqMAEFZEAAAZ8464-63-22 18:46:00 Test Item Value Reference Range Interpretation Comments PTT (test code = PTT) 28.6 s 22.9-35.8 [facility]NcqdbqyUSDAROUCFE1964-[facility] 18:46:00 Test Item Value Reference Range Interpretation Comments MPV (test code = MPV) 8.1 7.4-10.4 [facility] HospitalAjurfjrERXJQSIATK5453-88-31 18:46:00 Test Item Value Reference Range Interpretation Comments Platelet (test code = Platelet) 301 133-450 [facility] HospitalEflqndzNPLWNDMEOM2961-44-35 18:46:00 Test Item Value Reference Range Interpretation Comments RDW (test code = RDW) 14.5 11.5-14.5 [facility] HospitalAlculqzGABFTLYMTB7947-05-01 18:46:00 Test Item Value Reference Range Interpretation Comments RBC (test code = RBC) 4.84 4.70-6.10 [facility] HospitalZiunijrLFBPBBSSOH0154-21-16 18:46:00 Test Item Value Reference Range Interpretation Comments Hgb (test code = Hgb) 14.4 14.0-18.0 [facility] HospitalTpktaczOSNMOXIKZJ1738-80-81 18:46:00 Test Item Value Reference Range Interpretation Comments WBC (test code = WBC) 5.2 3.7-10.4 [facility] HospitalXdqagkgELZBHEIVSZ4510-58-94 18:46:00 Test Item Value Reference Range Interpretation Comments MCH (test code = MCH) 29.8 pg 27.0-31.0 [facility] HospitalZmhigmsUVXAKUJYUJ2614-92-03 18:46:00 Test Item Value Reference Range Interpretation Comments MCV (test code = MCV) 92.0 80.0-94.0 [facility]DetoukoEGPLWJFTXQ4676-24-60 18:46:00 Test Item Value Reference Range Interpretation Comments Hct (test code = Hct) 44.5 42.0-54.0 [facility] CenterBppvmxfQDSTDFKAXV8951-66-27 18:46:00 Test Item Value Reference Range Interpretation Comments MCHC (test code = MCHC) 32.4 32.0-36.0 [facility] CenterHbzllugJOJUXIJXBY8641-03-96 18:46:00 Test Item Value Reference Range Interpretation Comments [place]-Hep C Ab (test Negative *NA*(07/22/14 code = [place]-Hep C 1:46 PM) Ab) [facility] [id number] 18:46:00 Test Item Value Reference Range Interpretation Comments UA Urobilinogen (test code = UA <=1.0 mg/dL 0.1-1.0 Urobilinogen) [facility] AND [id number] 18:46:00 Test Item Value Reference Range Interpretation Comments UA Sq Epi (test code = UA Sq Epi) None Seen [facility] AND [id number] 18:46:00 Test Item Value Reference Range Interpretation Comments UA Leuk Est (test Negative (07/22/14 1:46 code = UA Leuk Est) PM) [facility] AND [id number] 18:46:00 Test Item Value Reference Range Interpretation Comments UA Nitrite (test code Negative (07/22/14 1:46 = UA Nitrite) PM) [facility] AND [id number] 18:46:00 Test Item Value Reference Range Interpretation Comments UA Blood (test code = Negative (07/22/14 1:46 UA Blood) PM) [facility] AND [id number] 18:46:00 Test Item Value Reference Range Interpretation Comments UA Ketones (test code = UA Negative mg/dL Ketones) [facility] AND [id number] 18:46:00 Test Item Value Reference Range Interpretation Comments UA Bili (test code = Negative *NA*(07/22/14 UA Bili) 1:46 PM) [facility] AND [id number] 18:46:00 Test Item Value Reference Range Interpretation Comments UA Bacteria (test code = UA Occasional /HPF Bacteria) [facility] AND [id number] 18:46:00 Test Item Value Reference Range Interpretation Comments UA RBC (test code = no gt See_Comment [Automa elizabeth message] The UA RBC) system which ge nerated this result transmit elizabeth reference range : <=2. The reference range was not used to interpr et this result as lukas l/abnormal. [facility] AND [id number] 18:46:00 Test Item Value Reference Range Interpretation Comments UA WBC (test code = 1 See_Comment [Automa elizabeth message] The UA WBC) system which ge nerated this result transmit elizabeth reference range : <=5. The reference range was not used to interpr et this result as lukas l/abnormal. [facility] AND [id number] 18:46:00 Test Item Value Reference Range Interpretation Comments UA Glucose (test code = UA Glucose) 30 mg/dL [facility] AND [id number] 18:46:00 Test Item Value Reference Range Interpretation Comments UA Protein (test code = UA Negative mg/dL Protein) [facility] AND [id number] 18:46:00 Test Item Value Reference Range Interpretation Comments UA pH (test code = UA pH) 6.5 5.0-8.0 [facility] AND [id number] 18:46:00 Test Item Value Reference Range Interpretation Comments UA Turbidity (test code = Clear (07/22/14 1:46 UA Turbidity) PM) [facility] AND [id number] 18:46:00 Test Item Value Reference Range Interpretation Comments UA Spec Grav (test code = UA Spec Grav) 1.010 [facility] AND [id number] 18:46:00 Test Item Value Reference Range Interpretation Comments UA Color (test code = Light Yellow UA Color) *NA*(07/22/14 1:46 PM) [facility] [id number] 18:46:00 Test Item Value Reference Range Interpretation Comments Magnesium Lvl (test code = Magnesium 1.8 1.8-2.4 Lvl) [facility] SurgeryYvovswnSZRCWYIBDICB2795-26-72 18:46:00 Test Item Value Reference Range Interpretation Comments AGAP (test code = AGAP) 13.2 10.0-20.0 [facility] SurgeryXbowinoEJEXBVJZSXWG5132-63-28 18:46:00 Test Item Value Reference Range Interpretation Comments B/C Ratio (test code = B/C Ratio) 18 6-25 [facility] SurgeryBmyfxhsOCRZAMYSZMPA8111-64-52 18:46:00 Test Item Value Reference Range Interpretation Comments A/G Ratio (test code = A/G Ratio) 1.1 0.7-1.6 [facility] SurgeryGowqvksTQCBSSMMJAWK2445-93-92 18:46:00 Test Item Value Reference Range Interpretation Comments Globulin (test code = Globulin) 3.3 2.0-4.0 [facility] SurgerySahlmfgATSZVQBHCPWM8445-38-55 18:46:00 Test Item Value Reference Range Interpretation Comments eGFR (test code = eGFR) 99 [facility] SurgeryXldqwszDJESQBZEKOSS0506-30-33 18:46:00 Test Item Value Reference Range Interpretation Comments Calcium Lvl (test code = Calcium Lvl) 9.0 8.5-10.5 [facility] SurgeryAalkabpHXEYFCEDIEEE2275-87-95 18:46:00 Test Item Value Reference Range Interpretation Comments Chloride Lvl (test code = Chloride Lvl) 106 95-109 [facility] SurgeryBbtdwpnOPKQFBAHZTGG0043-03-70 18:46:00 Test Item Value Reference Range Interpretation Comments Creatinine Lvl (test code = Creatinine 0.9 0.5-1.4 Lvl) [facility] SurgeryPwqkdxxRUWUIZKORZSW9018-77-59 18:46:00 Test Item Value Reference Range Interpretation Comments Potassium Lvl (test code = Potassium 4.2 3.5-5.1 Lvl) [facility] SurgeryNkptuaySTWXBHRBUVHP6470-17-94 18:46:00 Test Item Value Reference Range Interpretation Comments Sodium Lvl (test code = Sodium Lvl) 139 135-145 [facility] SurgeryPerlbljFUGUJWEDKPVJ1860-34-36 18:46:00 Test Item Value Reference Range Interpretation Comments CO2 (test code = CO2) 24 24-32 [facility] SurgeryMbkqubbLAGFBYCHKCUO3642-51-50 18:46:00 Test Item Value Reference Range Interpretation Comments BUN (test code = BUN) 16 7-22 [facility] SurgeryKxjwsadGCMZHDSAKFKI7165-68-10 18:46:00 Test Item Value Reference Range Interpretation Comments Glucose Lvl (test code = Glucose Lvl) 141 70-99 [facility] SurgeryNgixviiXWPOBYVEGEUQ6477-84-24 18:46:00 Test Item Value Reference Range Interpretation Comments Albumin Lvl (test code = Albumin Lvl) 3.6 3.5-5.0 [facility] SurgeryNtrkyoiMDKAARDHRSMW2636-18-53 18:46:00 Test Item Value Reference Range Interpretation Comments Alk Phos (test code = Alk Phos) 65 39-136 [facility] SurgeryAekxljxIDNPBEKWXCHV9664-69-27 18:46:00 Test Item Value Reference Range Interpretation Comments Bili Total (test code = Bili Total) 0.3 0.2-1.3 [facility] SurgeryRbncetdJXDQEXHYHPDT4976-20-74 18:46:00 Test Item Value Reference Range Interpretation Comments ALT (test code = ALT) 100 See_Comment [Auto mated message] The system which ge nerated this result transmit elizabeth reference range : <=65. The reference range was not used to interpr et this result as lukas l/abnormal. [facility] SurgeryNfyqmrpRJHEKHEUYNDM9478-68-31 18:46:00 Test Item Value Reference Range Interpretation Comments AST (test code = AST) 53 See_Comment [Auto mated message] The system which ge nerated this result transmit elizabeth reference range : <=37. The reference range was not used to interpr et this result as lukas l/abnormal. [facility] SurgeryWwkpifkUEIKJUZBUHKG8277-87-61 18:46:00 Test Item Value Reference Range Interpretation Comments Total Protein (test code = Total 6.9 6.4-8.4 Protein) [facility] HospitalPqruybiQSENWISWKX4580-02-97 18:46:00 Test Item Value Reference Range Interpretation Comments Eosinophils (test code = 4.2 See_Comment [A utomated message] The Eosinophils) system which ge nerated this result tra nsmitted reference range : <=4.0. The reference r mitra was not used to int erpret this result as normal/abnormal . [facility] HospitalShimnprVUFJYKJVZF4756-29-78 18:46:00 Test Item Value Reference Range Interpretation Comments Segs (test code = Segs) 56.4 45.0-75.0 [facility] HospitalZetzkmcYIUJAHSTSD0222-73-42 18:46:00 Test Item Value Reference Range Interpretation Comments Monocytes (test code = Monocytes) 10.3 2.0-12.0 [facility] HospitalKhzglelLWXLTGVDFY2197-32-47 18:46:00 Test Item Value Reference Range Interpretation Comments Lymphocytes (test code = Lymphocytes) 28.0 20.0-40.0 [facility] HospitalQuirqjtDSLZOCIVBW1503-72-41 18:46:00 Test Item Value Reference Range Interpretation Comments Monocytes # (test code 0.5 See_Comment [Aut omated message] The = Monocytes #) system which generated this result tra nsmitted reference range : <=0.8. The reference r mitra was not used to int erpret this result as normal/abnormal . [facility] HospitalDmxemkxWCPNPMYNRB9517-84-03 18:46:00 Test Item Value Reference Range Interpretation Comments Basophils (test code = 1.1 See_Comment [Aut omated message] The Basophils) system which ge nerated this result tra nsmitted reference range : <=1.0. The reference r mitra was not used to int erpret this result as normal/abnormal . [facility] HospitalCfosdisJZWBEZVQZP4925-92-78 18:46:00 Test Item Value Reference Range Interpretation Comments Lymphocytes # (test code = Lymphocytes 1.5 1.0-5.5 #) [facility] HospitalYfmsbhdXKNIMKPIGY5666-76-02 18:46:00 Test Item Value Reference Range Interpretation Comments Segs-Bands # (test code = Segs-Bands #) 2.9 1.5-8.1 [facility] HospitalCevppouUFZQNSYECJ6943-10-39 18:46:00 Test Item Value Reference Range Interpretation Comments Eosinophils # (test code 0.2 See_Comment [A utomated message] The = Eosinophils #) system whic h generated this result tra nsmitted reference range : <=0.5. The reference r mitra was not used to int erpret this result as normal/abnormal . [facility] HospitalVhnmbggHEOPRALFLC5989-88-88 18:46:00 Test Item Value Reference Range Interpretation Comments Basophils # (test code 0.1 See_Comment [Aut omated message] The = Basophils #) system which generated this result tra nsmitted reference range : <=0.2. The reference r mitra was not used to int erpret this result as normal/abnormal . [facility] HospitalXpmctonQQUKFMWIRS2890-76-67 18:46:00 Test Item Value Reference Range Interpretation Comments PT (test code = PT) 11.2 s 12.0-14.7 [facility] HospitalRfdltytPGRUXINGLV9198-27-70 18:46:00 Test Item Value Reference Range Interpretation Comments INR (test code = INR) 0.82 0.85-1.17 [facility] HospitalYzpbyixQNNDOBSXGQ0722-76-67 18:46:00 Test Item Value Reference Range Interpretation Comments PTT (test code = PTT) 28.6 s 22.9-35.8 [facility] HospitalJdbdjjzPBLNTVIZIU7080-84-80 18:46:00 Test Item Value Reference Range Interpretation Comments MPV (test code = MPV) 8.1 7.4-10.4 [facility] HospitalKkfkjnbMTDULLSFYK0867-06-55 18:46:00 Test Item Value Reference Range Interpretation Comments Platelet (test code = Platelet) 301 133-450 [facility] HospitalNbjswfxPCXLNSOMZH4389-76-60 18:46:00 Test Item Value Reference Range Interpretation Comments RDW (test code = RDW) 14.5 11.5-14.5 [facility] HospitalSeackiaCROJULCFKH9790-24-21 18:46:00 Test Item Value Reference Range Interpretation Comments RBC (test code = RBC) 4.84 4.70-6.10 [facility]NenrpleIUFBGQSLKJ5471-79-50 18:46:00 Test Item Value Reference Range Interpretation Comments Hgb (test code = Hgb) 14.4 14.0-18.0 [facility]ScaxtkqNACNIIKCOQ5757-78-16 18:46:00 Test Item Value Reference Range Interpretation Comments WBC (test code = WBC) 5.2 3.7-10.4 [facility] HospitalXgobpknOZEOUHSQGI5560-33-76 18:46:00 Test Item Value Reference Range Interpretation Comments MCH (test code = MCH) 29.8 pg 27.0-31.0 [facility] HospitalKhtpconFMUNFEUGJS4147-24-68 18:46:00 Test Item Value Reference Range Interpretation Comments MCV (test code = MCV) 92.0 80.0-94.0 [facility] HospitalIpejkojYCJYPJNMYX9858-91-51 18:46:00 Test Item Value Reference Range Interpretation Comments Hct (test code = Hct) 44.5 42.0-54.0 [facility] HospitalGzykoxsPWDIJHVEFJ4171-25-65 18:46:00 Test Item Value Reference Range Interpretation Comments MCHC (test code = MCHC) 32.4 32.0-36.0 [facility] CenterHkdxaqjPIWXYYRJZK4537-93-49 18:46:00 Test Item Value Reference Range Interpretation Comments [place]-Hep C Ab (test Negative *NA*(07/22/14 code = [place]-Hep C 1:46 PM) Ab) [facility] AND [id number] 18:46:00 Test Item Value Reference Range Interpretation Comments UA Urobilinogen (test code = UA <=1.0 mg/dL 0.1-1.0 Urobilinogen) [facility] AND [id number] 18:46:00 Test Item Value Reference Range Interpretation Comments UA Sq Epi (test code = UA Sq Epi) None Seen [facility] AND [id number] 18:46:00 Test Item Value Reference Range Interpretation Comments UA Leuk Est (test Negative (07/22/14 1:46 code = UA Leuk Est) PM) [facility] AND [id number] 18:46:00 Test Item Value Reference Range Interpretation Comments UA Nitrite (test code Negative (07/22/14 1:46 = UA Nitrite) PM) [facility] AND [id number] 18:46:00 Test Item Value Reference Range Interpretation Comments UA Blood (test code = Negative (07/22/14 1:46 UA Blood) PM) [facility] AND [id number] 18:46:00 Test Item Value Reference Range Interpretation Comments UA Ketones (test code = UA Negative mg/dL Ketones) [facility] AND [id number] 18:46:00 Test Item Value Reference Range Interpretation Comments UA Bili (test code = Negative *NA*(07/22/14 UA Bili) 1:46 PM) [facility] AND [id number] 18:46:00 Test Item Value Reference Range Interpretation Comments UA Bacteria (test code = UA Occasional /HPF Bacteria) [facility] AND [id number] 18:46:00 Test Item Value Reference Range Interpretation Comments UA RBC (test code = no gt See_Comment [Automa elizabeth message] The UA RBC) system which ge nerated this result transmit elizabeth reference range : <=2. The reference range was not used to interpr et this result as lukas l/abnormal. [facility] AND [id number] 18:46:00 Test Item Value Reference Range Interpretation Comments UA WBC (test code = 1 See_Comment [Automa elizabeth message] The UA WBC) system which ge nerated this result transmit elizabeth reference range : <=5. The reference range was not used to interpr et this result as lukas l/abnormal. [facility] AND [id number] 18:46:00 Test Item Value Reference Range Interpretation Comments UA Glucose (test code = UA Glucose) 30 mg/dL [facility] AND [id number] 18:46:00 Test Item Value Reference Range Interpretation Comments UA Protein (test code = UA Negative mg/dL Protein) [facility] AND [id number] 18:46:00 Test Item Value Reference Range Interpretation Comments UA pH (test code = UA pH) 6.5 5.0-8.0 [facility] AND [id number] 18:46:00 Test Item Value Reference Range Interpretation Comments UA Turbidity (test code = Clear (07/22/14 1:46 UA Turbidity) PM) [facility] AND [id number] 18:46:00 Test Item Value Reference Range Interpretation Comments UA Spec Grav (test code = UA Spec Grav) 1.010 [facility] AND [id number] 18:46:00 Test Item Value Reference Range Interpretation Comments UA Color (test code = Light Yellow UA Color) *NA*(07/22/14 1:46 PM) [facility] [id number] 18:46:00 Test Item Value Reference Range Interpretation Comments Magnesium Lvl (test code = Magnesium 1.8 1.8-2.4 Lvl) [facility] SurgeryRcmqpuzJSXFMTFGRKNM5505-71-01 18:46:00 Test Item Value Reference Range Interpretation Comments AGAP (test code = AGAP) 13.2 10.0-20.0 [facility] Su[id number] 18:46:00 Test Item Value Reference Range Interpretation Comments B/C Ratio (test code = B/C Ratio) 18 6-25 [facility] SurgeryVojcilxUQNWDGTOSWFV2953-12-24 18:46:00 Test Item Value Reference Range Interpretation Comments A/G Ratio (test code = A/G Ratio) 1.1 0.7-1.6 [facility] SurgeryDbejacmLNGEVCRVBPHV9118-94-87 18:46:00 Test Item Value Reference Range Interpretation Comments Globulin (test code = Globulin) 3.3 2.0-4.0 [facility] SurgeryDowgoznGNNZWGMHCHTH3925-15-13 18:46:00 Test Item Value Reference Range Interpretation Comments eGFR (test code = eGFR) 99 [facility] SurgeryGfivettSBAMSCPSJTLV8508-91-46 18:46:00 Test Item Value Reference Range Interpretation Comments Calcium Lvl (test code = Calcium Lvl) 9.0 8.5-10.5 [facility] SurgeryNkvsuxhNQKQXQHJSTMV7683-34-47 18:46:00 Test Item Value Reference Range Interpretation Comments Chloride Lvl (test code = Chloride Lvl) 106 95-109 [facility] SurgeryNhudtynWYZETUNPETLC8816-64-48 18:46:00 Test Item Value Reference Range Interpretation Comments Creatinine Lvl (test code = Creatinine 0.9 0.5-1.4 Lvl) [facility] SurgeryYvgzecfZXMUZEVZIQFX1698-92-42 18:46:00 Test Item Value Reference Range Interpretation Comments Potassium Lvl (test code = Potassium 4.2 3.5-5.1 Lvl) [facility] SurgeryNjelavqEHVHTGQMPXHH3641-92-81 18:46:00 Test Item Value Reference Range Interpretation Comments Sodium Lvl (test code = Sodium Lvl) 139 135-145 [facility] SurgeryZscrhmiBUODDVLYLQYY7084-95-10 18:46:00 Test Item Value Reference Range Interpretation Comments CO2 (test code = CO2) 24 24-32 [facility] SurgeryQxgspbqNLTPYBAQESAP5811-19-70 18:46:00 Test Item Value Reference Range Interpretation Comments BUN (test code = BUN) 16 7-22 [facility] SurgeryKpnnidiPPLDFQOFOUMN4728-87-35 18:46:00 Test Item Value Reference Range Interpretation Comments Glucose Lvl (test code = Glucose Lvl) 141 70-99 [facility] SurgeryMmsgdqaCZVSIPHXNMUF3245-03-22 18:46:00 Test Item Value Reference Range Interpretation Comments Albumin Lvl (test code = Albumin Lvl) 3.6 3.5-5.0 [facility] SurgeryWrnufomVYAKJDVURVSK2549-36-02 18:46:00 Test Item Value Reference Range Interpretation Comments Alk Phos (test code = Alk Phos) 65 39-136 [facility] SurgeryXlrwwiiDUJYMKMQCXTF3726-95-74 18:46:00 Test Item Value Reference Range Interpretation Comments Bili Total (test code = Bili Total) 0.3 0.2-1.3 [facility] SurgeryLrzfnfcBYXPWJHBGVMB1610-13-54 18:46:00 Test Item Value Reference Range Interpretation Comments ALT (test code = ALT) 100 See_Comment [Auto mated message] The system which ge nerated this result transmit elizabeth reference range : <=65. The reference range was not used to interpr et this result as lukas l/abnormal. [facility] SurgeryJnjodzlQXDDFXWWACIW2274-59-75 18:46:00 Test Item Value Reference Range Interpretation Comments AST (test code = AST) 53 See_Comment [Auto mated message] The system which ge nerated this result transmit elizabeth reference range : <=37. The reference range was not used to interpr et this result as lukas l/abnormal. [facility] SurgeryDufoclrZWTUWRXECSHD8117-79-36 18:46:00 Test Item Value Reference Range Interpretation Comments Total Protein (test code = Total 6.9 6.4-8.4 Protein) [facility] CenterZspxlwyOMXBKWZJKI0980-60-71 18:46:00 Test Item Value Reference Range Interpretation Comments Eosinophils (test code = 4.2 See_Comment [A utomated message] The Eosinophils) system which ge nerated this result tra nsmitted reference range : <=4.0. The reference r mitra was not used to int erpret this result as normal/abnormal . [facility] HospitalExsvxlkGSCJEUJSUO4278-92-37 18:46:00 Test Item Value Reference Range Interpretation Comments Segs (test code = Segs) 56.4 45.0-75.0 [facility] HospitalNjtgazzUDQECTKCAD8783-23-87 18:46:00 Test Item Value Reference Range Interpretation Comments Monocytes (test code = Monocytes) 10.3 2.0-12.0 [facility] HospitalUnlifysOXIBYVZLDN6116-97-38 18:46:00 Test Item Value Reference Range Interpretation Comments Lymphocytes (test code = Lymphocytes) 28.0 20.0-40.0 [facility] HospitalMdtvfdjGGPGNDRASJ6932-21-91 18:46:00 Test Item Value Reference Range Interpretation Comments Monocytes # (test code 0.5 See_Comment [Aut omated message] The = Monocytes #) system which generated this result tra nsmitted reference range : <=0.8. The reference r mitra was not used to int erpret this result as normal/abnormal . [facility] HospitalJrgcvezPLQCKCTROH0990-83-49 18:46:00 Test Item Value Reference Range Interpretation Comments Basophils (test code = 1.1 See_Comment [Aut omated message] The Basophils) system which ge nerated this result tra nsmitted reference range : <=1.0. The reference r mitra was not used to int erpret this result as normal/abnormal . [facility] HospitalUracedgSIOWHLRLDL8281-14-66 18:46:00 Test Item Value Reference Range Interpretation Comments Lymphocytes # (test code = Lymphocytes 1.5 1.0-5.5 #) [facility] HospitalLmlmpyoQHOPKYPOAU1834-47-60 18:46:00 Test Item Value Reference Range Interpretation Comments Segs-Bands # (test code = Segs-Bands #) 2.9 1.5-8.1 [facility] HospitalVsxeazqZPBVDOWDSH6989-73-85 18:46:00 Test Item Value Reference Range Interpretation Comments Eosinophils # (test code 0.2 See_Comment [A utomated message] The = Eosinophils #) system [facility] h generated this result tra nsmitted reference range : <=0.5. The reference r mitra was not used to int erpret this result as normal/abnormal . [facility] HospitalWpzdxdyGWCSULSWIB3603-52-87 18:46:00 Test Item Value Reference Range Interpretation Comments Basophils # (test code 0.1 See_Comment [Aut omated message] The = Basophils #) system which generated this result tra nsmitted reference range : <=0.2. The reference r mitra was not used to int erpret this result as normal/abnormal . [facility] HospitalXugstauRDIAUJEKPV0773-36-84 18:46:00 Test Item Value Reference Range Interpretation Comments PT (test code = PT) 11.2 s 12.0-14.7 [facility] HospitalJoxucueJOCEAUNVIV2364-33-91 18:46:00 Test Item Value Reference Range Interpretation Comments INR (test code = INR) 0.82 0.85-1.17 [facility] HospitalCfoiyhaNWISKUFFDV4083-44-37 18:46:00 Test Item Value Reference Range Interpretation Comments PTT (test code = PTT) 28.6 s 22.9-35.8 [facility] HospitalLgkwouoDWENLXQNXJ5182-55-98 18:46:00 Test Item Value Reference Range Interpretation Comments MPV (test code = MPV) 8.1 7.4-10.4 [facility] HospitalWqubrfiNETHRGEKAD6523-89-80 18:46:00 Test Item Value Reference Range Interpretation Comments Platelet (test code = Platelet) 301 133-450 [facility] HospitalTlcmdquIMRNNKIOLO5990-18-15 18:46:00 Test Item Value Reference Range Interpretation Comments RDW (test code = RDW) 14.5 11.5-14.5 [facility] HospitalAnpcyipNNQSALIVYL9703-64-09 18:46:00 Test Item Value Reference Range Interpretation Comments RBC (test code = RBC) 4.84 4.70-6.10 [facility] HospitalUnqzymqACIAOFERDL9499-91-38 18:46:00 Test Item Value Reference Range Interpretation Comments Hgb (test code = Hgb) 14.4 14.0-18.0 [facility] HospitalBhiqurmSRICONIBSH8809-45-89 18:46:00 Test Item Value Reference Range Interpretation Comments WBC (test code = WBC) 5.2 3.7-10.4 [facility] HospitalAzhxbzpAJIXYCHNZZ3803-69-33 18:46:00 Test Item Value Reference Range Interpretation Comments MCH (test code = MCH) 29.8 pg 27.0-31.0 [facility] CenterHbrniksVSMPRHQAAF3487-62-64 18:46:00 Test Item Value Reference Range Interpretation Comments MCV (test code = MCV) 92.0 80.0-94.0 [facility] CenterEegrhmpYFFVVHGGOA9569-46-50 18:46:00 Test Item Value Reference Range Interpretation Comments Hct (test code = Hct) 44.5 42.0-54.0 [facility] CenterPhxmpwpHSZGEKUFAO1027-42-08 18:46:00 Test Item Value Reference Range Interpretation Comments MCHC (test code = MCHC) 32.4 32.0-36.0 [facility] CenterMbviaviYVBFCELPVD3851-61-97 18:46:00 Test Item Value Reference Range Interpretation Comments [place]-Hep C Ab (test Negative *NA*(07/22/14 code = [place]-Hep C 1:46 PM) Ab) [facility] AND [id number] 18:46:00 Test Item Value Reference Range Interpretation Comments UA Urobilinogen (test code = UA <=1.0 mg/dL 0.1-1.0 Urobilinogen) [facility] AND [id number] 18:46:00 Test Item Value Reference Range Interpretation Comments UA Sq Epi (test code = UA Sq Epi) None Seen [facility] AND [id number] 18:46:00 Test Item Value Reference Range Interpretation Comments UA Leuk Est (test Negative (07/22/14 1:46 code = UA Leuk Est) PM) [facility] AND [id number] 18:46:00 Test Item Value Reference Range Interpretation Comments UA Nitrite (test code Negative (07/22/14 1:46 = UA Nitrite) PM) [facility] AND [id number] 18:46:00 Test Item Value Reference Range Interpretation Comments UA Blood (test code = Negative (07/22/14 1:46 UA Blood) PM) [facility] AND [id number] 18:46:00 Test Item Value Reference Range Interpretation Comments UA Ketones (test code = UA Negative mg/dL Ketones) [facility] AND [id number] 18:46:00 Test Item Value Reference Range Interpretation Comments UA Bili (test code = Negative *NA*(07/22/14 UA Bili) 1:46 PM) [facility] [id number] 18:46:00 Test Item Value Reference Range Interpretation Comments UA Bacteria (test code = UA Occasional /HPF Bacteria) [facility] [id number] 18:46:00 Test Item Value Reference Range Interpretation Comments UA RBC (test code = no gt See_Comment [Automa elizabeth message] The UA RBC) system which ge nerated this result transmit elizabeth reference range : <=2. The reference range was not used to interpr et this result as lukas l/abnormal. [facility] [id number] 18:46:00 Test Item Value Reference Range Interpretation Comments UA WBC (test code = 1 See_Comment [Automa elizabeth message] The UA WBC) system which ge nerated this result transmit elizabeth reference range : <=5. The reference range was not used to interpr et this result as lukas l/abnormal. [facility] [id number] 18:46:00 Test Item Value Reference Range Interpretation Comments UA Glucose (test code = UA Glucose) 30 mg/dL [facility] AND [id number] 18:46:00 Test Item Value Reference Range Interpretation Comments UA Protein (test code = UA Negative mg/dL Protein) [facility] [id number] 18:46:00 Test Item Value Reference Range Interpretation Comments UA pH (test code = UA pH) 6.5 5.0-8.0 [facility] [id number] 18:46:00 Test Item Value Reference Range Interpretation Comments UA Turbidity (test code = Clear (07/22/14 1:46 UA Turbidity) PM) [facility] [id number] 18:46:00 Test Item Value Reference Range Interpretation Comments UA Spec Grav (test code = UA Spec Grav) 1.010 [facility] [id number] 18:46:00 Test Item Value Reference Range Interpretation Comments UA Color (test code = Light Yellow UA Color) *NA*(07/22/14 1:46 PM) [facility] [id number] 18:46:00 Test Item Value Reference Range Interpretation Comments Magnesium Lvl (test code = Magnesium 1.8 1.8-2.4 Lvl) [facility] SkxgkvbDXLIMHNSUJMN1495-67-48 18:46:00 Test Item Value Reference Range Interpretation Comments AGAP (test code = AGAP) 13.2 10.0-20.0 [facility] SurgeryVawjmebZAPWWWKYRRDF4910-06-40 18:46:00 Test Item Value Reference Range Interpretation Comments B/C Ratio (test code = B/C Ratio) 18 6-25 [facility] SurgeryKgilcojVIPXYUQBYTVU1713-88-79 18:46:00 Test Item Value Reference Range Interpretation Comments A/G Ratio (test code = A/G Ratio) 1.1 0.7-1.6 [facility] SurgeryZxemhahCFZFLRHUDIVV9446-43-61 18:46:00 Test Item Value Reference Range Interpretation Comments Globulin (test code = Globulin) 3.3 2.0-4.0 [facility] SurgeryTbikiycLHYSODAJTBSZ9082-24-62 18:46:00 Test Item Value Reference Range Interpretation Comments eGFR (test code = eGFR) 99 [facility] SurgeryWlqyjwxVBKOKJGNPMJN8604-91-42 18:46:00 Test Item Value Reference Range Interpretation Comments Calcium Lvl (test code = Calcium Lvl) 9.0 8.5-10.5 [facility] SurgeryEsqpbpjZIRBIYKSEDQU2198-04-15 18:46:00 Test Item Value Reference Range Interpretation Comments Chloride Lvl (test code = Chloride Lvl) 106 95-109 [facility] SurgeryBhxfmflLDDKRUPNDNPZ4458-17-67 18:46:00 Test Item Value Reference Range Interpretation Comments Creatinine Lvl (test code = Creatinine 0.9 0.5-1.4 Lvl) [facility] SurgeryFlnbmpuGYWVVYRITLLH5486-38-77 18:46:00 Test Item Value Reference Range Interpretation Comments Potassium Lvl (test code = Potassium 4.2 3.5-5.1 Lvl) [facility] SurgeryXptdjcbOFJHJWTUYARV7919-73-40 18:46:00 Test Item Value Reference Range Interpretation Comments Sodium Lvl (test code = Sodium Lvl) 139 135-145 [facility] SurgeryKuuxwobQZMMOPZFDEGN7868-57-11 18:46:00 Test Item Value Reference Range Interpretation Comments CO2 (test code = CO2) 24 24-32 [facility] SurgeryQrwsbzdQPGFWYOIANMW8066-70-98 18:46:00 Test Item Value Reference Range Interpretation Comments BUN (test code = BUN) 16 7-22 [facility] SurgeryVsldifuCHLFRTWHQSOV1301-79-95 18:46:00 Test Item Value Reference Range Interpretation Comments Glucose Lvl (test code = Glucose Lvl) 141 70-99 [facility] SurgeryVehoandWXOAKPTWRMTL1812-76-30 18:46:00 Test Item Value Reference Range Interpretation Comments Albumin Lvl (test code = Albumin Lvl) 3.6 3.5-5.0 [facility] SurgeryUpbaftmZBNLNCAPMHLT0083-85-82 18:46:00 Test Item Value Reference Range Interpretation Comments Alk Phos (test code = Alk Phos) 65 39-136 [facility] SurgeryZmzhadbZYYZPRBNKVZC8746-12-67 18:46:00 Test Item Value Reference Range Interpretation Comments Bili Total (test code = Bili Total) 0.3 0.2-1.3 [facility] SurgeryRhtrocnOQLBMTPVUCTZ1455-52-25 18:46:00 Test Item Value Reference Range Interpretation Comments ALT (test code = ALT) 100 See_Comment [Auto mated message] The system which ge nerated this result transmit elizabeth reference range : <=65. The reference range was not used to interpr et this result as lukas l/abnormal. [facility] SurgeryXguviaqDTYBRPVJSSAU1270-82-05 18:46:00 Test Item Value Reference Range Interpretation Comments AST (test code = AST) 53 See_Comment [Auto mated message] The system which ge nerated this result transmit elizabeth reference range : <=37. The reference range was not used to interpr et this result as lukas l/abnormal. [facility] SurgeryWbvkhacUCJCPTYUARPT8472-78-52 18:46:00 Test Item Value Reference Range Interpretation Comments Total Protein (test code = Total 6.9 6.4-8.4 Protein) [facility] HospitalMbudotwVNTKUGKHAF0387-29-76 18:46:00 Test Item Value Reference Range Interpretation Comments Eosinophils (test code = 4.2 See_Comment [A utomated message] The Eosinophils) system which ge nerated this result tra nsmitted reference range : <=4.0. The reference r imtra was not used to int erpret this result as normal/abnormal . [facility] HospitalDzkglsyHNNAZDHVZE0917-27-71 18:46:00 Test Item Value Reference Range Interpretation Comments Segs (test code = Segs) 56.4 45.0-75.0 [facility] HospitalUppsfenUIHXYPWZCM7085-17-42 18:46:00 Test Item Value Reference Range Interpretation Comments Monocytes (test code = Monocytes) 10.3 2.0-12.0 [facility] HospitalMbhwdirTROMNIGPIR6575-21-14 18:46:00 Test Item Value Reference Range Interpretation Comments Lymphocytes (test code = Lymphocytes) 28.0 20.0-40.0 [facility] HospitalDizsrdjZRRQBLNGXY9497-88-05 18:46:00 Test Item Value Reference Range Interpretation Comments Monocytes # (test code 0.5 See_Comment [Aut omated message] The = Monocytes #) system which generated this result tra nsmitted reference range : <=0.8. The reference r mitra was not used to int erpret this result as normal/abnormal . [facility] HospitalKynzopwKRXLSDCTRD4780-33-65 18:46:00 Test Item Value Reference Range Interpretation Comments Basophils (test code = 1.1 See_Comment [Aut omated message] The Basophils) system which ge nerated this result tra nsmitted reference range : <=1.0. The reference r mitra was not used to int erpret this result as normal/abnormal . [facility] HospitalAicthhvNFDLTPEPGC0639-62-98 18:46:00 Test Item Value Reference Range Interpretation Comments Lymphocytes # (test code = Lymphocytes 1.5 1.0-5.5 #) [facility] HospitalJrycnpaTPINWXURCL5623-89-65 18:46:00 Test Item Value Reference Range Interpretation Comments Segs-Bands # (test code = Segs-Bands #) 2.9 1.5-8.1 [facility] HospitalQletobiJKPXRPXDQG1527-26-83 18:46:00 Test Item Value Reference Range Interpretation Comments Eosinophils # (test code 0.2 See_Comment [A utomated message] The = Eosinophils #) system whic h generated this result tra nsmitted reference range : <=0.5. The reference r mitra was not used to int erpret this result as normal/abnormal . [facility] HospitalHgnvkqdYTCNPPYHNL7920-36-91 18:46:00 Test Item Value Reference Range Interpretation Comments Basophils # (test code 0.1 See_Comment [Aut omated message] The = Basophils #) system which generated this result tra nsmitted reference range : <=0.2. The reference r mitra was not used to int erpret this result as normal/abnormal . [facility] HospitalAujlctfLYUUFAJMRS0919-99-27 18:46:00 Test Item Value Reference Range Interpretation Comments PT (test code = PT) 11.2 s 12.0-14.7 [facility] HospitalUgxsfypBCQQTZPOXW0877-50-60 18:46:00 Test Item Value Reference Range Interpretation Comments INR (test code = INR) 0.82 0.85-1.17 [facility] HospitalRfxpddmZLQDHOIVZH8776-39-65 18:46:00 Test Item Value Reference Range Interpretation Comments PTT (test code = PTT) 28.6 s 22.9-35.8 [facility] HospitalTtsibmwBMNVDVTOMW7049-74-72 18:46:00 Test Item Value Reference Range Interpretation Comments MPV (test code = MPV) 8.1 7.4-10.4 [facility] HospitalQdwspnrEYSODFKCQO8908-94-97 18:46:00 Test Item Value Reference Range Interpretation Comments Platelet (test code = Platelet) 301 133-450 [facility] HospitalSsvcmvvYHKEVSZZKX1835-76-59 18:46:00 Test Item Value Reference Range Interpretation Comments RDW (test code = RDW) 14.5 11.5-14.5 [facility] HospitalDwtxklkSMRUUMQLHW9960-49-04 18:46:00 Test Item Value Reference Range Interpretation Comments RBC (test code = RBC) 4.84 4.70-6.10 [facility] HospitalFrlfcsnLHWSZLZLEQ9424-29-23 18:46:00 Test Item Value Reference Range Interpretation Comments Hgb (test code = Hgb) 14.4 14.0-18.0 [facility] HospitalUfodfsnRWJMSGRXVQ9433-40-49 18:46:00 Test Item Value Reference Range Interpretation Comments WBC (test code = WBC) 5.2 3.7-10.4 [facility] HospitalIfykyeqBOGVYCHHCT5040-20-06 18:46:00 Test Item Value Reference Range Interpretation Comments MCH (test code = MCH) 29.8 pg 27.0-31.0 [facility] Hospit[id number] 18:46:00 Test Item Value Reference Range Interpretation Comments MCV (test code = MCV) 92.0 80.0-94.0 [facility] HospitalIqezassMLRNVZKMXG5223-87-40 18:46:00 Test Item Value Reference Range Interpretation Comments Hct (test code = Hct) 44.5 42.0-54.0 [facility] HospitalBktvkqyBKWRHQGYIX7062-67-50 18:46:00 Test Item Value Reference Range Interpretation Comments MCHC (test code = MCHC) 32.4 32.0-36.0 [facility]89[facility] 18:46:00 Test Item Value Reference Range Interpretation Comments [place]-Hep C Ab (test Negative *NA*(07/22/14 code = [place]-Hep C 1:46 PM) Ab) [facility] AND [id number] 18:46:00 Test Item Value Reference Range Interpretation Comments UA Urobilinogen (test code = UA <=1.0 mg/dL 0.1-1.0 Urobilinogen) [facility] AND [id number] 18:46:00 Test Item Value Reference Range Interpretation Comments UA Sq Epi (test code = UA Sq Epi) None Seen [facility] AND [id number] 18:46:00 Test Item Value Reference Range Interpretation Comments UA Leuk Est (test Negative (07/22/14 1:46 code = UA Leuk Est) PM) [facility] AND [id number] 18:46:00 Test Item Value Reference Range Interpretation Comments UA Nitrite (test code Negative (07/22/14 1:46 = UA Nitrite) PM) [facility] AND [id number] 18:46:00 Test Item Value Reference Range Interpretation Comments UA Blood (test code = Negative (07/22/14 1:46 UA Blood) PM) [facility] AND [id number] 18:46:00 Test Item Value Reference Range Interpretation Comments UA Ketones (test code = UA Negative mg/dL Ketones) [facility] AND [id number] 18:46:00 Test Item Value Reference Range Interpretation Comments UA Bili (test code = Negative *NA*(07/22/14 UA Bili) 1:46 PM) [facility] AND [id number] 18:46:00 Test Item Value Reference Range Interpretation Comments UA Bacteria (test code = UA Occasional /HPF Bacteria) [facility] AND [id number] 18:46:00 Test Item Value Reference Range Interpretation Comments UA RBC (test code = no gt See_Comment [Automa elizabeth message] The UA RBC) system which ge nerated this result transmit elizabeth reference range : <=2. The reference range was not used to interpr et this result as lukas l/abnormal. [facility] AND [id number] 18:46:00 Test Item Value Reference Range Interpretation Comments UA WBC (test code = 1 See_Comment [Automa elizabeth message] The UA WBC) system which ge nerated this result transmit elizabeth reference range : <=5. The reference range was not used to interpr et this result as lukas l/abnormal. [facility] AND [id number] 18:46:00 Test Item Value Reference Range Interpretation Comments UA Glucose (test code = UA Glucose) 30 mg/dL [facility] AND [id number] 18:46:00 Test Item Value Reference Range Interpretation Comments UA Protein (test code = UA Negative mg/dL Protein) [facility] AND [id number] 18:46:00 Test Item Value Reference Range Interpretation Comments UA pH (test code = UA pH) 6.5 5.0-8.0 [facility] AND [id number] 18:46:00 Test Item Value Reference Range Interpretation Comments UA Turbidity (test code = Clear (07/22/14 1:46 UA Turbidity) PM) [facility] AND [id number] 18:46:00 Test Item Value Reference Range Interpretation Comments UA Spec Grav (test code = UA Spec Grav) 1.010 [facility] AND [id number] 18:46:00 Test Item Value Reference Range Interpretation Comments UA Color (test code = Light Yellow UA Color) *NA*(07/22/14 1:46 PM) [facility] [id number] 18:46:00 Test Item Value Reference Range Interpretation Comments Magnesium Lvl (test code = Magnesium 1.8 1.8-2.4 Lvl) [facility] SurgeryNwvtagsDVJORGAMSJXK7530-54-80 18:46:00 Test Item Value Reference Range Interpretation Comments AGAP (test code = AGAP) 13.2 10.0-20.0 [facility] SurgeryYzohgobKHRICZAYUNUG7784-72-26 18:46:00 Test Item Value Reference Range Interpretation Comments B/C Ratio (test code = B/C Ratio) 18 6-25 [facility] SurgeryPjzbzetWKJGQTOFBKWC8819-10-76 18:46:00 Test Item Value Reference Range Interpretation Comments A/G Ratio (test code = A/G Ratio) 1.1 0.7-1.6 [facility] SurgeryJqdqvcnSPWAXUTQSDRE5361-03-66 18:46:00 Test Item Value Reference Range Interpretation Comments Globulin (test code = Globulin) 3.3 2.0-4.0 [facility] SurgeryWsjpipnQNCMGPCNJABA0816-63-26 18:46:00 Test Item Value Reference Range Interpretation Comments eGFR (test code = eGFR) 99 [facility] SurgeryMmwmkeiGVLJLQZGOZFK1098-63-13 18:46:00 Test Item Value Reference Range Interpretation Comments Calcium Lvl (test code = Calcium Lvl) 9.0 8.5-10.5 [facility] SurgerySokejzwTOLRSSREWLIS6577-36-83 18:46:00 Test Item Value Reference Range Interpretation Comments Chloride Lvl (test code = Chloride Lvl) 106 95-109 [facility] SurgeryPgaamanESJZMPSOLLTZ3678-48-49 18:46:00 Test Item Value Reference Range Interpretation Comments Creatinine Lvl (test code = Creatinine 0.9 0.5-1.4 Lvl) [facility] SurgeryNkeyigqKRJOJXNHTQKY8581-89-02 18:46:00 Test Item Value Reference Range Interpretation Comments Potassium Lvl (test code = Potassium 4.2 3.5-5.1 Lvl) [facility] SurgeryWligwyhMFFTHXIYRWNM2670-40-24 18:46:00 Test Item Value Reference Range Interpretation Comments Sodium Lvl (test code = Sodium Lvl) 139 135-145 [facility] SurgeryTwdtlrzUSZJHQLPKJDW4559-47-81 18:46:00 Test Item Value Reference Range Interpretation Comments CO2 (test code = CO2) 24 24-32 [facility] SurgeryDfhcdvoGHHJPYBBAZAQ2221-26-66 18:46:00 Test Item Value Reference Range Interpretation Comments BUN (test code = BUN) 16 7-22 [facility] SurgeryIbbmhvoZAXKYDSEAMTK2724-44-73 18:46:00 Test Item Value Reference Range Interpretation Comments Glucose Lvl (test code = Glucose Lvl) 141 70-99 [facility] SurgeryOwmhmnqMZZKOROILTZA1890-00-64 18:46:00 Test Item Value Reference Range Interpretation Comments Albumin Lvl (test code = Albumin Lvl) 3.6 3.5-5.0 [facility] SurgeryDkrrxavOOEYPBGDUEZK6660-02-40 18:46:00 Test Item Value Reference Range Interpretation Comments Alk Phos (test code = Alk Phos) 65 39-136 [facility] SurgeryEftpvruOTWGJKQVAASY9290-22-57 18:46:00 Test Item Value Reference Range Interpretation Comments Bili Total (test code = Bili Total) 0.3 0.2-1.3 [facility] SurgeryZepbyveYXKDMQPHKCAP3538-42-74 18:46:00 Test Item Value Reference Range Interpretation Comments ALT (test code = ALT) 100 See_Comment [Auto mated message] The system which ge nerated this result transmit elizabeth reference range : <=65. The reference range was not used to interpr et this result as lukas l/abnormal. [facility] SurgeryCybtyisHVBCKIHERZTW7003-70-83 18:46:00 Test Item Value Reference Range Interpretation Comments AST (test code = AST) 53 See_Comment [Auto mated message] The system which ge nerated this result transmit elizabeth reference range : <=37. The reference range was not used to interpr et this result as lukas l/abnormal. [facility] SurgeryRxotfbiUYALASCINSCB9333-64-26 18:46:00 Test Item Value Reference Range Interpretation Comments Total Protein (test code = Total 6.9 6.4-8.4 Protein) [facility] HospitalJhoejizNAMRYWSEHV5431-18-88 18:46:00 Test Item Value Reference Range Interpretation Comments Eosinophils (test code = 4.2 See_Comment [A utomated message] The Eosinophils) system which ge nerated this result tra nsmitted reference range : <=4.0. The reference r mitra was not used to int erpret this result as normal/abnormal . [facility] HospitalUdzmwdlSBPXJDLFJD7040-31-91 18:46:00 Test Item Value Reference Range Interpretation Comments Segs (test code = Segs) 56.4 45.0-75.0 [facility] HospitalNnvcfryEANZMDTIUM3122-17-13 18:46:00 Test Item Value Reference Range Interpretation Comments Monocytes (test code = Monocytes) 10.3 2.0-12.0 [facility] HospitalXkuaxwaUVWHLFBDTX5970-62-58 18:46:00 Test Item Value Reference Range Interpretation Comments Lymphocytes (test code = Lymphocytes) 28.0 20.0-40.0 [facility] HospitalFhcqefwWCVPOWONZJ0947-69-37 18:46:00 Test Item Value Reference Range Interpretation Comments Monocytes # (test code 0.5 See_Comment [Aut omated message] The = Monocytes #) system which generated this result tra nsmitted reference range : <=0.8. The reference r mitra was not used to int erpret this result as normal/abnormal . [facility] HospitalTfjarqvKNFCMIFCJB7742-75-49 18:46:00 Test Item Value Reference Range Interpretation Comments Basophils (test code = 1.1 See_Comment [Aut omated message] The Basophils) system which ge nerated this result tra nsmitted reference range : <=1.0. The reference r mitra was not used to int erpret this result as normal/abnormal . [facility] HospitalFgtzzgaQBOLIBWVFD7718-41-33 18:46:00 Test Item Value Reference Range Interpretation Comments Lymphocytes # (test code = Lymphocytes 1.5 1.0-5.5 #) [facility] HospitalEukwvumNKRIAABOZN7371-01-27 18:46:00 Test Item Value Reference Range Interpretation Comments Segs-Bands # (test code = Segs-Bands #) 2.9 1.5-8.1 [facility] HospitalNeouggzPWZDLNZKFK3657-95-96 18:46:00 Test Item Value Reference Range Interpretation Comments Eosinophils # (test code 0.2 See_Comment [A utomated message] The = Eosinophils #) system whic h generated this result tra nsmitted reference range : <=0.5. The reference r mitra was not used to int erpret this result as normal/abnormal . [facility] HospitalDoulvqgULGLVUTYAC0738-74-21 18:46:00 Test Item Value Reference Range Interpretation Comments Basophils # (test code 0.1 See_Comment [Aut omated message] The = Basophils #) system which generated this result tra nsmitted reference range : <=0.2. The reference r mitra was not used to int erpret this result as normal/abnormal . [facility] HospitalIlgcedjUIWOGVNLBM5687-58-15 18:46:00 Test Item Value Reference Range Interpretation Comments PT (test code = PT) 11.2 s 12.0-14.7 [facility] HospitalDyerbfjYMNKBYGYIA3871-55-18 18:46:00 Test Item Value Reference Range Interpretation Comments INR (test code = INR) 0.82 0.85-1.17 [facility] HospitalMbamyiiUNOSZUMWRR1991-93-55 18:46:00 Test Item Value Reference Range Interpretation Comments PTT (test code = PTT) 28.6 s 22.9-35.8 [facility] HospitalDtbttfkXUGEQIWGVY4866-63-11 18:46:00 Test Item Value Reference Range Interpretation Comments MPV (test code = MPV) 8.1 7.4-10.4 [facility] HospitalKqzttgfTCGTPEHTEY2374-79-22 18:46:00 Test Item Value Reference Range Interpretation Comments Platelet (test code = Platelet) 301 133-450 [facility]HgccehpMPPVYOJWHG0590-72-91 18:46:00 Test Item Value Reference Range Interpretation Comments RDW (test code = RDW) 14.5 11.5-14.5 [facility] HospitalRdbmleoEXEUKEEKTK5290-08-08 18:46:00 Test Item Value Reference Range Interpretation Comments RBC (test code = RBC) 4.84 4.70-6.10 [facility] HospitalHmykiqsEPTWQRQLTG3155-01-08 18:46:00 Test Item Value Reference Range Interpretation Comments Hgb (test code = Hgb) 14.4 14.0-18.0 [facility] HospitalRxewbezIFFZSKHIEA2385-10-82 18:46:00 Test Item Value Reference Range Interpretation Comments WBC (test code = WBC) 5.2 3.7-10.4 [facility] HospitalIyexzafZSGTASKMBX2465-02-77 18:46:00 Test Item Value Reference Range Interpretation Comments MCH (test code = MCH) 29.8 pg 27.0-31.0 [facility] HospitalBzgdgziACGYVCSTMC3970-89-56 18:46:00 Test Item Value Reference Range Interpretation Comments MCV (test code = MCV) 92.0 80.0-94.0 [facility]JvgaqpgXBTHRDFRFH6595-85-25 18:46:00 Test Item Value Reference Range Interpretation Comments Hct (test code = Hct) 44.5 42.0-54.0 [facility] HospitalTeramitKYGNLYEKKG1091-45-20 18:46:00 Test Item Value Reference Range Interpretation Comments MCHC (test code = MCHC) 32.4 32.0-36.0 [facility] CenterHwewjokTZTVUIPZHX0149-15-77 18:46:00 Test Item Value Reference Range Interpretation Comments [place]-Hep C Ab (test Negative *NA*(07/22/14 code = [place]-Hep C 1:46 PM) Ab) [facility] [id number] 18:46:00 Test Item Value Reference Range Interpretation Comments UA Urobilinogen (test code = UA <=1.0 mg/dL 0.1-1.0 Urobilinogen) [facility] [id number] 18:46:00 Test Item Value Reference Range Interpretation Comments UA Sq Epi (test code = UA Sq Epi) None [facility]en [facility] [id number] 18:46:00 Test Item Value Reference Range Interpretation Comments UA Leuk Est (test Negative (07/22/14 1:46 code = UA Leuk Est) PM) [facility] AND [id number] 18:46:00 Test Item Value Reference Range Interpretation Comments UA Nitrite (test code Negative (07/22/14 1:46 = UA Nitrite) PM) [facility] AND [id number] 18:46:00 Test Item Value Reference Range Interpretation Comments UA Blood (test code = Negative (07/22/14 1:46 UA Blood) PM) [facility] AND [id number] 18:46:00 Test Item Value Reference Range Interpretation Comments UA Ketones (test code = UA Negative mg/dL Ketones) [facility] AND [id number] 18:46:00 Test Item Value Reference Range Interpretation Comments UA Bili (test code = Negative *NA*(07/22/14 UA Bili) 1:46 PM) [facility] AND [id number] 18:46:00 Test Item Value Reference Range Interpretation Comments UA Bacteria (test code = UA Occasional /HPF Bacteria) [facility] AND [id number] 18:46:00 Test Item Value Reference Range Interpretation Comments UA RBC (test code = no gt See_Comment [Automa leizabeth message] The UA RBC) system which ge nerated this result transmit elizabeth reference range : <=2. The reference range was not used to interpr et this result as lukas l/abnormal. [facility] AND [id number] 18:46:00 Test Item Value Reference Range Interpretation Comments UA WBC (test code = 1 See_Comment [Automa elizabeth message] The UA WBC) system which ge nerated this result transmit elizabeth reference range : <=5. The reference range was not used to interpr et this result as lukas l/abnormal. [facility] AND [id number] 18:46:00 Test Item Value Reference Range Interpretation Comments UA Glucose (test code = UA Glucose) 30 mg/dL [facility] AND [id number] 18:46:00 Test Item Value Reference Range Interpretation Comments UA Protein (test code = UA Negative mg/dL Protein) [facility] AND [id number] 18:46:00 Test Item Value Reference Range Interpretation Comments UA pH (test code = UA pH) 6.5 5.0-8.0 [facility] [id number] 18:46:00 Test Item Value Reference Range Interpretation Comments UA Turbidity (test code = Clear (07/22/14 1:46 UA Turbidity) PM) [facility] [id number] 18:46:00 Test Item Value Reference Range Interpretation Comments UA Spec Grav (test code = UA Spec Grav) 1.010 [facility] AND [id number] 18:46:00 Test Item Value Reference Range Interpretation Comments UA Color (test code = Light Yellow UA Color) *NA*(07/22/14 1:46 PM) [facility] [id number] 18:46:00 Test Item Value Reference Range Interpretation Comments Magnesium Lvl (test code = Magnesium 1.8 1.8-2.4 Lvl) [facility] SurgeryTpkzumqACCFTBVWOZGW9250-99-26 18:46:00 Test Item Value Reference Range Interpretation Comments AGAP (test code = AGAP) 13.2 10.0-20.0 [facility] SurgerySnzjkwfJWEHJUAMYLVS7111-71-18 18:46:00 Test Item Value Reference Range Interpretation Comments B/C Ratio (test code = B/C Ratio) 18 6-25 [facility] SurgeryDunnqnvNDQGXJHFJCFA0244-57-17 18:46:00 Test Item Value Reference Range Interpretation Comments A/G Ratio (test code = A/G Ratio) 1.1 0.7-1.6 [facility] SurgeryGxvnbrgDSIIGKZQGBKG6696-25-11 18:46:00 Test Item Value Reference Range Interpretation Comments Globulin (test code = Globulin) 3.3 2.0-4.0 [facility] SurgerySlrjhrbNWECWEYFCZFO9865-09-99 18:46:00 Test Item Value Reference Range Interpretation Comments eGFR (test code = eGFR) 99 [facility] SurgeryBbvypigPSFXTSEMSLCA3844-19-11 18:46:00 Test Item Value Reference Range Interpretation Comments Calcium Lvl (test code = Calcium Lvl) 9.0 8.5-10.5 [facility] SurgeryHruyneiBKWEKHZNXMWT7397-11-96 18:46:00 Test Item Value Reference Range Interpretation Comments Chloride Lvl (test code = Chloride Lvl) 106 95-109 [facility] SurgeryXpdjuhjQJELWAVQJLON6394-97-47 18:46:00 Test Item Value Reference Range Interpretation Comments Creatinine Lvl (test code = Creatinine 0.9 0.5-1.4 Lvl) [facility] SurgeryWbvbqkoKRUHWPAIYHHT8423-00-59 18:46:00 Test Item Value Reference Range Interpretation Comments Potassium Lvl (test code = Potassium 4.2 3.5-5.1 Lvl) [facility] SurgeryZegexecCOSEHREALZDQ9906-68-16 18:46:00 Test Item Value Reference Range Interpretation Comments Sodium Lvl (test code = Sodium Lvl) 139 135-145 [facility] SurgeryQvplyvoHMKFOIHDONZB6757-08-55 18:46:00 Test Item Value Reference Range Interpretation Comments CO2 (test code = CO2) 24 24-32 [facility] SurgeryBotfgdrXGIPHLTLBQFX9179-81-32 18:46:00 Test Item Value Reference Range Interpretation Comments BUN (test code = BUN) 16 7-22 [facility] SurgeryKelarevNKRYVYNVAASS4533-14-25 18:46:00 Test Item Value Reference Range Interpretation Comments Glucose Lvl (test code = Glucose Lvl) 141 70-99 [facility] SurgeryPnleuvlBMLEXWQPHAVY6619-99-04 18:46:00 Test Item Value Reference Range Interpretation Comments Albumin Lvl (test code = Albumin Lvl) 3.6 3.5-5.0 [facility] SurgeryAqbtazpYJSIRFTLEOZK6366-23-05 18:46:00 Test Item Value Reference Range Interpretation Comments Alk Phos (test code = Alk Phos) 65 39-136 [facility] SurgeryJahlwqyUZUDKPNMXOTQ9868-61-00 18:46:00 Test Item Value Reference Range Interpretation Comments Bili Total (test code = Bili Total) 0.3 0.2-1.3 [facility] SurgeryCndhwdrGPCCPWOKNKEQ4041-86-92 18:46:00 Test Item Value Reference Range Interpretation Comments ALT (test code = ALT) 100 See_Comment [Auto mated message] The system which ge nerated this result transmit elizabeth reference range : <=65. The reference range was not used to interpr et this result as lukas l/abnormal. [facility] SurgeryDavdjvkMAPOUFORWUEV0094-44-17 18:46:00 Test Item Value Reference Range Interpretation Comments AST (test code = AST) 53 See_Comment [Auto mated message] The system which ge nerated this result transmit elizabeth reference range : <=37. The reference range was not used to interpr et this result as lukas l/abnormal. [facility] SurgeryNnmdmtiFVARYGSTNORK4168-34-38 18:46:00 Test Item Value Reference Range Interpretation Comments Total Protein (test code = Total 6.9 6.4-8.4 Protein) [facility] HospitalViwwlxqLZABACVPXC1071-79-21 18:46:00 Test Item Value Reference Range Interpretation Comments Eosinophils (test code = 4.2 See_Comment [A utomated message] The Eosinophils) system which ge nerated this result tra nsmitted reference range : <=4.0. The reference r mitra was not used to int erpret this result as normal/abnormal . [facility] HospitalJmmwtxsLGKATZDCBF5168-72-88 18:46:00 Test Item Value Reference Range Interpretation Comments Segs (test code = Segs) 56.4 45.0-75.0 [facility] HospitalRsbtnewWJPUXEBZUF6917-52-53 18:46:00 Test Item Value Reference Range Interpretation Comments Monocytes (test code = Monocytes) 10.3 2.0-12.0 [facility] HospitalLjvscmuTAURYKDIOT4221-95-38 18:46:00 Test Item Value Reference Range Interpretation Comments Lymphocytes (test code = Lymphocytes) 28.0 20.0-40.0 [facility] HospitalGdvafjcJGWFNXWSRC1979-15-32 18:46:00 Test Item Value Reference Range Interpretation Comments Monocytes # (test code 0.5 See_Comment [Aut omated message] The = Monocytes #) system which generated this result tra nsmitted reference range : <=0.8. The reference r mitra was not used to int erpret this result as normal/abnormal . [facility] HospitalBjgjxmsROBCKANPPL7660-77-04 18:46:00 Test Item Value Reference Range Interpretation Comments Basophils (test code = 1.1 See_Comment [Aut omated message] The Basophils) system which ge nerated this result tra nsmitted reference range : <=1.0. The reference r mitra was not used to int erpret this result as normal/abnormal . [facility] HospitalFtxadgbPYADLZMRHQ2168-09-95 18:46:00 Test Item Value Reference Range Interpretation Comments Lymphocytes # (test code = Lymphocytes 1.5 1.0-5.5 #) [facility] HospitalYofzwpzGTUPKUTJGS9272-06-54 18:46:00 Test Item Value Reference Range Interpretation Comments Segs-Bands # (test code = Segs-Bands #) 2.9 1.5-8.1 [facility] HospitalAgfgmcaNGSFBEPHTQ5097-04-32 18:46:00 Test Item Value Reference Range Interpretation Comments Eosinophils # (test code 0.2 See_Comment [A utomated message] The = Eosinophils #) system whic h generated this result tra nsmitted reference range : <=0.5. The reference r mitra was not used to int erpret this result as normal/abnormal . [facility] HospitalYzewxznRJGPSDKETZ8532-11-61 18:46:00 Test Item Value Reference Range Interpretation Comments Basophils # (test code 0.1 See_Comment [Aut omated message] The = Basophils #) system which generated this result tra nsmitted reference range : <=0.2. The reference r mitra was not used to int erpret this result as normal/abnormal . [facility] HospitalBmtyqxlWWMGCIDMVK4844-64-09 18:46:00 Test Item Value Reference Range Interpretation Comments PT (test code = PT) 11.2 s 12.0-14.7 [facility] HospitalXsdsqqrCGVRSXUFDP0402-92-26 18:46:00 Test Item Value Reference Range Interpretation Comments INR (test code = INR) 0.82 0.85-1.17 [facility] HospitalGyucronCPANOFZNBB7981-00-87 18:46:00 Test Item Value Reference Range Interpretation Comments PTT (test code = PTT) 28.6 s 22.9-35.8 [facility] HospitalDtmmtlfJISKMTYTRD0230-06-45 18:46:00 Test Item Value Reference Range Interpretation Comments MPV (test code = MPV) 8.1 7.4-10.4 [facility] HospitalMkyklioKBZNVLXGTY1065-29-96 18:46:00 Test Item Value Reference Range Interpretation Comments Platelet (test code = [place]) 301 133-450 [facility] HospitalYkbmfiaZUYHGAIHXW9068-31-91 18:46:00 Test Item Value Reference Range Interpretation Comments RDW (test code = RDW) 14.5 11.5-14.5 [facility] HospitalFypevpxXKYOALWQVY7043-14-91 18:46:00 Test Item Value Reference Range Interpretation Comments RBC (test code = RBC) 4.84 4.70-6.10 [facility] HospitalOntqjqeRIGFSJSALF6799-76-83 18:46:00 Test Item Value Reference Range Interpretation Comments Hgb (test code = Hgb) 14.4 14.0-18.0 [facility] HospitalAsliqdjUULZBDVAHV3837-42-05 18:46:00 Test Item Value Reference Range Interpretation Comments WBC (test code = WBC) 5.2 3.7-10.4 [facility]ndwrvNNFQIRFZGJ9650-61-10 18:46:00 Test Item Value Reference Range Interpretation Comments MCH (test code = MCH) 29.8 pg 27.0-31.0 [facility]FkqrxkfGJHCCOXTQI4750-43-45 18:46:00 Test Item Value Reference Range Interpretation Comments MCV (test code = MCV) 92.0 80.0-94.0 [facility]UlkzrojKBYQRHAVMJ3973-22-62 18:46:00 Test Item Value Reference Range Interpretation Comments Hct (test code = Hct) 44.5 42.0-54.0 [facility] HospitalSddvbycMLCYXZFNRT9653-42-48 18:46:00 Test Item Value Reference Range Interpretation Comments MCHC (test code = MCHC) 32.4 32.0-36.0 [facility] CenterWxwtyhxTTYXHSTOFY7924-60-71 18:46:00 Test Item Value Reference Range Interpretation Comments [place]-Hep C Ab (test Negative *NA*(07/22/14 code = [place]-Hep C 1:46 PM) Ab) [facility] AND [id number] 18:46:00 Test Item Value Reference Range Interpretation Comments UA Urobilinogen (test code = UA <=1.0 mg/dL 0.1-1.0 Urobilinogen) [facility] AND [id number] 18:46:00 Test Item Value Reference Range Interpretation Comments UA Sq Epi (test code = UA Sq Epi) None Seen [facility] AND [id number] 18:46:00 Test Item Value Reference Range Interpretation Comments UA Leuk Est (test Negative (07/22/14 1:46 code = UA Leuk Est) PM) [facility] AND [id number] 18:46:00 Test Item Value Reference Range Interpretation Comments UA Nitrite (test code Negative (07/22/14 1:46 = UA Nitrite) PM) [facility] AND [id number] 18:46:00 Test Item Value Reference Range Interpretation Comments UA Blood (test code = Negative (07/22/14 1:46 UA Blood) PM) [facility] AND [id number] 18:46:00 Test Item Value Reference Range Interpretation Comments UA Ketones (test code = UA Negative mg/dL Ketones) [facility] AND [id number] 18:46:00 Test Item Value Reference Range Interpretation Comments UA Bili (test code = Negative *NA*(07/22/14 UA Bili) 1:46 PM) [facility] AND [id number] 18:46:00 Test Item Value Reference Range Interpretation Comments UA Bacteria (test code = UA Occasional /HPF Bacteria) [facility] AND [id number] 18:46:00 Test Item Value Reference Range Interpretation Comments UA RBC (test code = no gt See_Comment [Automa elizabeth message] The UA RBC) system which ge nerated this result transmit elizabeth reference range : <=2. The reference range was not used to interpr et this result as lukas l/abnormal. [facility] AND [id number] 18:46:00 Test Item Value Reference Range Interpretation Comments UA WBC (test code = 1 See_Comment [Automa elizabeth message] The UA WBC) system which ge nerated this result transmit elizabeth reference range : <=5. The reference range was not used to interpr et this result as lukas l/abnormal. [facility] AND [id number] 18:46:00 Test Item Value Reference Range Interpretation Comments UA Glucose (test code = UA Glucose) 30 mg/dL [facility] [id number] 18:46:00 Test Item Value Reference Range Interpretation Comments Magnesium Lvl (test code = Magnesium 1.8 1.8-2.4 Lvl) [facility] AND [id number] 18:46:00 Test Item Value Reference Range Interpretation Comments UA Protein (test code = UA Negative mg/dL Protein) [facility]VdagxqhIABPAICIEFQS9631-84-75 18:46:00 Test Item Value Reference Range Interpretation Comments AGAP (test code = AGAP) 13.2 10.0-20.0 [facility] AND [id number] 18:46:00 Test Item Value Reference Range Interpretation Comments UA pH (test code = UA pH) 6.5 5.0-8.0 [facility] SystemLcfbjbkBASEVUQGEHOU0818-59-16 18:46:00 Test Item Value Reference Range Interpretation Comments B/C Ratio (test code = B/C Ratio) 18 08-07 [facility] AND [id number] 18:46:00 Test Item Value Reference Range Interpretation Comments UA Turbidity (test code = Clear (07/22/14 1:46 UA Turbidity) PM) [facility] SurgeryGutsgyeCJUYKJNUDPKA0090-91-94 18:46:00 Test Item Value Reference Range Interpretation Comments A/G Ratio (test code = A/G Ratio) 1.1 0.7-1.6 [facility] AND [id number] 18:46:00 Test Item Value Reference Range Interpretation Comments UA Spec Grav (test code = UA Spec Grav) 1.010 [facility] SurgerySoqzymbUTVWGGCGBGAQ4116-14-46 18:46:00 Test Item Value Reference Range Interpretation Comments Globulin (test code = Globulin) 3.3 2.0-4.0 [facility] AND [id number] 18:46:00 Test Item Value Reference Range Interpretation Comments UA Color (test code = Light Yellow UA Color) *NA*(07/22/14 1:46 PM) [facility] SurgeryFxqdsngPCEEOPVLJJVT9372-99-30 18:46:00 Test Item Value Reference Range Interpretation Comments eGFR (test code = eGFR) 99 [facility] CenterCHEM [id number] 18:46:00 Test Item Value Reference Range Interpretation Comments Magnesium Lvl (test code = Magnesium 1.8 1.8-2.4 Lvl) [facility] SurgeryZkkpoxwMYJWOBTDYXCB5908-74-03 18:46:00 Test Item Value Reference Range Interpretation Comments Calcium Lvl (test code = Calcium Lvl) 9.0 8.5-10.5 [facility] SurgeryEtznpejIOJZTHHHEQMQ8140-39-20 18:46:00 Test Item Value Reference Range Interpretation Comments AGAP (test code = AGAP) 13.2 10.0-20.0 [facility] SurgeryJamdkiiZKKNEFIZGSEV5060-51-10 18:46:00 Test Item Value Reference Range Interpretation Comments Chloride Lvl (test code = Chloride Lvl) 106 95-109 [facility] SurgeryZvunbfzLMRLIXHEFFIC6781-70-02 18:46:00 Test Item Value Reference Range Interpretation Comments B/C Ratio (test code = B/C Ratio) 18 - [facility] SurgeryFztqmtoFRIWSNSDHBNW5088-59-05 18:46:00 Test Item Value Reference Range Interpretation Comments Creatinine Lvl (test code = Creatinine 0.9 0.5-1.4 Lvl) [facility] SurgeryNybukkeJZHPCZGOYGKU6427-16-42 18:46:00 Test Item Value Reference Range Interpretation Comments A/G Ratio (test code = A/G Ratio) 1.1 0.7-1.6 [facility] SurgeryEanqxlyVJEMJITEFTJW8694-05-33 18:46:00 Test Item Value Reference Range Interpretation Comments Potassium Lvl (test code = Potassium 4.2 3.5-5.1 Lvl) [facility] SurgeryJxrggfgHSLPVMDYCGKD7333-50-99 18:46:00 Test Item Value Reference Range Interpretation Comments Globulin (test code = Globulin) 3.3 2.0-4.0 [facility] SurgeryJqfyjaeXOLHWEDODHUU3137-26-06 18:46:00 Test Item Value Reference Range Interpretation Comments Sodium Lvl (test code = Sodium Lvl) 139 135-145 [facility] SurgeryUavxfpmTOCPFIWGKIHO1643-05-07 18:46:00 Test Item Value Reference Range Interpretation Comments eGFR (test code = eGFR) 99 [facility] SurgeryBljdggyMTHNPWFDPSIE8345-23-84 18:46:00 Test Item Value Reference Range Interpretation Comments CO2 (test code = CO2) 24 24-32 [facility] SurgeryWvqokycIGAWIUXYZCIL3750-57-76 18:46:00 Test Item Value Reference Range Interpretation Comments Calcium Lvl (test code = Calcium Lvl) 9.0 8.5-10.5 [facility] SurgeryEwybuzdTGXRQIIPEHIE1591-21-17 18:46:00 Test Item Value Reference Range Interpretation Comments BUN (test code = BUN) 16 7-22 [facility] SurgeryMlibwlhNSJSTMGBCWMO4982-15-54 18:46:00 Test Item Value Reference Range Interpretation Comments Chloride Lvl (test code = Chloride Lvl) 106 95-109 [facility] SurgeryJdhswduQSWLAWZIIKAR9327-32-08 18:46:00 Test Item Value Reference Range Interpretation Comments Glucose Lvl (test code = Glucose Lvl) 141 70-99 [facility] SurgeryDjfegrlYGJAKCPLUQFB6832-77-20 18:46:00 Test Item Value Reference Range Interpretation Comments Creatinine Lvl (test code = Creatinine 0.9 0.5-1.4 Lvl) [facility] SurgeryOfrtlvrMHSKCPJDMSWP7049-24-46 18:46:00 Test Item Value Reference Range Interpretation Comments Albumin Lvl (test code = Albumin Lvl) 3.6 3.5-5.0 [facility] SurgeryHkcvfbsWENOMLFWFNOO6979-02-64 18:46:00 Test Item Value Reference Range Interpretation Comments Potassium Lvl (test code = Potassium 4.2 3.5-5.1 Lvl) [facility] SurgeryTfosktiQCVLXEMRKZHU1714-18-71 18:46:00 Test Item Value Reference Range Interpretation Comments Alk Phos (test code = Alk Phos) 65 39-136 [facility] SurgeryBeorjrwJRTFGWOUGNJJ4318-01-33 18:46:00 Test Item Value Reference Range Interpretation Comments Sodium Lvl (test code = Sodium Lvl) 139 135-145 [facility] SurgeryXvascteIOXOULLHCQZG9268-84-27 18:46:00 Test Item Value Reference Range Interpretation Comments Bili Total (test code = Bili Total) 0.3 0.2-1.3 [facility] SurgeryYwfdhdtWDNOPEBRXMVC2824-91-13 18:46:00 Test Item Value Reference Range Interpretation Comments CO2 (test code = CO2) 24 24-32 [facility] SurgeryJvxvqncLKIKKBGVCUXQ0284-48-76 18:46:00 Test Item Value Reference Range Interpretation Comments ALT (test code = ALT) 100 See_Comment [Auto mated message] The system which ge nerated this result transmit elizabeth reference range : <=65. The reference range was not used to interpr et this result as lukas l/abnormal. [facility] SurgeryLrbpjnjOVNKKOOLVQYM6308-92-14 18:46:00 Test Item Value Reference Range Interpretation Comments BUN (test code = BUN) 16 7-22 [facility] SurgeryLpucotoEATIQHRSFKKX9266-79-19 18:46:00 Test Item Value Reference Range Interpretation Comments AST (test code = AST) 53 See_Comment [Auto mated message] The system which ge nerated this result transmit elizabeth reference range : <=37. The reference range was not used to interpr et this result as lukas l/abnormal. [facility] SurgeryUjwkgcbIENNCOZFEOBH0548-88-31 18:46:00 Test Item Value Reference Range Interpretation Comments Glucose Lvl (test code = Glucose Lvl) 141 70-99 [facility] SurgeryMenimyzWCJAYPSHAGQL5823-39-26 18:46:00 Test Item Value Reference Range Interpretation Comments Total Protein (test code = Total 6.9 6.4-8.4 Protein) [facility] SurgeryQwiobtwQMXQFBECIMUO1239-88-57 18:46:00 Test Item Value Reference Range Interpretation Comments Albumin Lvl (test code = Albumin Lvl) 3.6 3.5-5.0 [facility] HospitalOpslbxgWDKYBNGNTC1514-41-08 18:46:00 Test Item Value Reference Range Interpretation Comments Eosinophils (test code = 4.2 See_Comment [A utomated message] The Eosinophils) system which ge nerated this result tra nsmitted reference range : <=4.0. The reference r mitra was not used to int erpret this result as normal/abnormal . [facility] SurgeryWtdxihdDZKRUPKCKBMQ7451-85-20 18:46:00 Test Item Value Reference Range Interpretation Comments Alk Phos (test code = Alk Phos) 65 39-136 [facility] HospitalBijyptlTOPWWTYBUK6635-84-37 18:46:00 Test Item Value Reference Range Interpretation Comments Segs (test code = Segs) 56.4 45.0-75.0 [facility] SurgeryQvhtmfjBQZNQMMNVMHG2563-57-68 18:46:00 Test Item Value Reference Range Interpretation Comments Bili Total (test code = Bili Total) 0.3 0.2-1.3 [facility] SurgeryAycbzfxBSCFHLAFFSEY1218-72-26 18:46:00 Test Item Value Reference Range Interpretation Comments ALT (test code = ALT) 100 See_Comment [Auto mated message] The system which ge nerated this result transmit elizabeth reference range : <=65. The reference range was not used to interpr et this result as lukas l/abnormal. [facility] HospitalDguvdqfRSQJCPDWLR4914-26-11 18:46:00 Test Item Value Reference Range Interpretation Comments Monocytes (test code = Monocytes) 10.3 2.0-12.0 [facility] HospitalQhuxgokFVFMFDSOPW4033-96-76 18:46:00 Test Item Value Reference Range Interpretation Comments Lymphocytes (test code = Lymphocytes) 28.0 20.0-40.0 [facility] SurgeryOkqaezjEBKEFMQPNGUQ1942-06-28 18:46:00 Test Item Value Reference Range Interpretation Comments AST (test code = AST) 53 See_Comment [Auto mated message] The system which ge nerated this result transmit elizabeth reference range : <=37. The reference range was not used to interpr et this result as lukas l/abnormal. [facility] HospitalOzvyxogGFZTOVGFBS7509-70-70 18:46:00 Test Item Value Reference Range Interpretation Comments Monocytes # (test code 0.5 See_Comment [Aut omated message] The = Monocytes #) system which generated this result tra nsmitted reference range : <=0.8. The reference r mitra was not used to int erpret this result as normal/abnormal . [facility] SurgeryYwngnkkEVCTWAGYESFO0291-01-09 18:46:00 Test Item Value Reference Range Interpretation Comments Total Protein (test code = Total 6.9 6.4-8.4 Protein) [facility] HospitalYlbvyqmDIPWCAMFGG7841-07-18 18:46:00 Test Item Value Reference Range Interpretation Comments Eosinophils (test code = 4.2 See_Comment [A utomated message] The Eosinophils) system which ge nerated this result tra nsmitted reference range : <=4.0. The reference r mitra was not used to int erpret this result as normal/abnormal . [facility] HospitalCeiyyaoYOTVBXQWCO8093-11-51 18:46:00 Test Item Value Reference Range Interpretation Comments Segs (test code = Segs) 56.4 45.0-75.0 [facility] HospitalYzwlmpvBEKJJTHHLI5857-62-03 18:46:00 Test Item Value Reference Range Interpretation Comments Basophils (test code = 1.1 See_Comment [Aut omated message] The Basophils) system which ge nerated this result tra nsmitted reference range : <=1.0. The reference r mitra was not used to int erpret this result as normal/abnormal . [facility] HospitalLcimfwtYAKPCIMYSU7682-15-20 18:46:00 Test Item Value Reference Range Interpretation Comments Monocytes (test code = Monocytes) 10.3 2.0-12.0 [facility] HospitalGqcdftnQUFQNBQYPK1509-68-15 18:46:00 Test Item Value Reference Range Interpretation Comments Lymphocytes # (test code = Lymphocytes 1.5 1.0-5.5 #) [facility] HospitalPlaslaiJQPVZDUWGO4529-21-88 18:46:00 Test Item Value Reference Range Interpretation Comments Lymphocytes (test code = Lymphocytes) 28.0 20.0-40.0 [facility] HospitalKavkwztMGEBVKECUC4591-45-86 18:46:00 Test Item Value Reference Range Interpretation Comments Segs-Bands # (test code = Segs-Bands #) 2.9 1.5-8.1 [facility] HospitalWrqgurcLXDBJCODRE6162-59-73 18:46:00 Test Item Value Reference Range Interpretation Comments Monocytes # (test code 0.5 See_Comment [Aut omated message] The = Monocytes #) system which generated this result tra nsmitted reference range : <=0.8. The reference r mitra was not used to int erpret this result as normal/abnormal . [facility] HospitalIyynwvwVMZWDSZQUM8920-95-46 18:46:00 Test Item Value Reference Range Interpretation Comments Eosinophils # (test code 0.2 See_Comment [A utomated message] The = Eosinophils #) system whic h generated this result tra nsmitted reference range : <=0.5. The reference r mitra was not used to int erpret this result as normal/abnormal . [facility] HospitalSbxjdrpWERDBUMDHA6651-21-77 18:46:00 Test Item Value Reference Range Interpretation Comments Basophils (test code = 1.1 See_Comment [Aut omated message] The Basophils) system which ge nerated this result tra nsmitted reference range : <=1.0. The reference r mitra was not used to int erpret this result as normal/abnormal . [facility] HospitalBvftpuqQTOHEKIVDK1953-55-31 18:46:00 Test Item Value Reference Range Interpretation Comments Basophils # (test code 0.1 See_Comment [Aut omated message] The = Basophils #) system which generated this result tra nsmitted reference range : <=0.2. The reference r mitra was not used to int erpret this result as normal/abnormal . [facility] HospitalGlhiaewXBHIXEMVVV9146-77-44 18:46:00 Test Item Value Reference Range Interpretation Comments Lymphocytes # (test code = Lymphocytes 1.5 1.0-5.5 #) [facility] HospitalIiunqudRCPRTXIJCE1562-20-73 18:46:00 Test Item Value Reference Range Interpretation Comments PT (test code = PT) 11.2 s 12.0-14.7 [facility] HospitalMwfmwlrQBEPOVKLRR4038-03-36 18:46:00 Test Item Value Reference Range Interpretation Comments Segs-Bands # (test code = Segs-Bands #) 2.9 1.5-8.1 [facility] HospitalXodjhsnSXZQDSRFEU6725-03-18 18:46:00 Test Item Value Reference Range Interpretation Comments INR (test code = INR) 0.82 0.85-1.17 [facility] HospitalItwxtbpDTNCRUBNAQ4543-50-08 18:46:00 Test Item Value Reference Range Interpretation Comments Eosinophils # (test code 0.2 See_Comment [A utomated message] The = Eosinophils #) system whic h generated this result tra nsmitted reference range : <=0.5. The reference r mitra was not used to int erpret this result as normal/abnormal . [facility] HospitalZupkzenEPVBOQBCMC6718-22-89 18:46:00 Test Item Value Reference Range Interpretation Comments PTT (test code = PTT) 28.6 s 22.9-35.8 [facility] HospitalOnwywksLHQNCFMPOC1410-65-98 18:46:00 Test Item Value Reference Range Interpretation Comments Basophils # (test code 0.1 See_Comment [Aut omated message] The = Basophils #) system which generated this result tra nsmitted reference range : <=0.2. The reference r mitra was not used to int erpret this result as normal/abnormal . [facility] HospitalZmrmtefTQNQNQGXYP7644-53-96 18:46:00 Test Item Value Reference Range Interpretation Comments MPV (test code = MPV) 8.1 7.4-10.4 [facility] HospitalWnsifmsNDSHFKUBUY3972-57-22 18:46:00 Test Item Value Reference Range Interpretation Comments PT (test code = PT) 11.2 s 12.0-14.7 [facility] HospitalHhznmlbSQAHHZXZAQ0104-09-91 18:46:00 Test Item Value Reference Range Interpretation Comments Platelet (test code = Platelet) 301 133-450 [facility] HospitalVihikyuVYZTKIJLQZ2355-66-84 18:46:00 Test Item Value Reference Range Interpretation Comments INR (test code = INR) 0.82 0.85-1.17 [facility] HospitalRxvglwnEICNZZJEVH1645-57-93 18:46:00 Test Item Value Reference Range Interpretation Comments RDW (test code = RDW) 14.5 11.5-14.5 [facility] HospitalPlkanqzOWJPEENVZG0242-93-45 18:46:00 Test Item Value Reference Range Interpretation Comments PTT (test code = PTT) 28.6 s 22.9-35.8 [facility] HospitalRtaglhuHKJUJPMJZQ0978-74-26 18:46:00 Test Item Value Reference Range Interpretation Comments RBC (test code = RBC) 4.84 4.70-6.10 [facility] HospitalMololqyBMUCFMVXAW1752-14-96 18:46:00 Test Item Value Reference Range Interpretation Comments MPV (test code = MPV) 8.1 7.4-10.4 [facility] HospitalUvvtbkpMFWCXCZRRG5509-59-59 18:46:00 Test Item Value Reference Range Interpretation Comments Hgb (test code = Hgb) 14.4 14.0-18.0 [facility] HospitalFcjxwqwZGIKAFGNEP7310-21-96 18:46:00 Test Item Value Reference Range Interpretation Comments Platelet (test code = Platelet) 301 133-450 [facility] HospitalEaaypavPBQGUSIBGE1647-23-19 18:46:00 Test Item Value Reference Range Interpretation Comments WBC (test code = WBC) 5.2 3.7-10.4 [facility] HospitalBczxeazQDXNERITHI9442-76-60 18:46:00 Test Item Value Reference Range Interpretation Comments RDW (test code = RDW) 14.5 11.5-14.5 [facility] HospitalHwuhflbLBOJLQKFDP3641-01-18 18:46:00 Test Item Value Reference Range Interpretation Comments MCH (test code = MCH) 29.8 pg 27.0-31.0 [facility] HospitalTzrbiyeHKCFUZBRXO0720-95-69 18:46:00 Test Item Value Reference Range Interpretation Comments RBC (test code = RBC) 4.84 4.70-6.10 [facility] HospitalMtworkzNUATLSLCYN4282-27-47 18:46:00 Test Item Value Reference Range Interpretation Comments MCV (test code = MCV) 92.0 80.0-94.0 [facility] HospitalBsshqxaYHODCXCHWH7700-68-53 18:46:00 Test Item Value Reference Range Interpretation Comments Hgb (test code = Hgb) 14.4 14.0-18.0 [facility] HospitalAabxyyzJZIAAWRFJJ9276-87-81 18:46:00 Test Item Value Reference Range Interpretation Comments Hct (test code = Hct) 44.5 42.0-54.0 [facility] HospitalZhlvxvrFAASIVBIXG4268-15-74 18:46:00 Test Item Value Reference Range Interpretation Comments WBC (test code = WBC) 5.2 3.7-10.4 [facility] HospitalWhraqjwWCFXXYINCG4069-05-43 18:46:00 Test Item Value Reference Range Interpretation Comments MCHC (test code = MCHC) 32.4 32.0-36.0 [facility] HospitalJrzqxtcYNRDDJVVDS0400-70-22 18:46:00 Test Item Value Reference Range Interpretation Comments MCH (test code = MCH) 29.8 pg 27.0-31.0 [facility]JxrfkksUAFZKBVONU7953-57-44 18:46:00 Test Item Value Reference Range Interpretation Comments [place]-Hep C Ab (test Negative *NA*(07/22/14 code = [place]-Hep C 1:46 PM) Ab) [facility]HcmdwpbXVBMZNMKGR7988-72-91 18:46:00 Test Item Value Reference Range Interpretation Comments MCV (test code = MCV) 92.0 80.0-94.0 [facility] AND [id number] 18:46:00 Test Item Value Reference Range Interpretation Comments UA Urobilinogen (test code = UA <=1.0 mg/dL 0.1-1.0 Urobilinogen) [facility] HospitalFvyupyhDRTUSPHZMA0910-56-14 18:46:00 Test Item Value Reference Range Interpretation Comments Hct (test code = Hct) 44.5 42.0-54.0 [facility] AND [id number] 18:46:00 Test Item Value Reference Range Interpretation Comments UA Sq Epi (test code = UA Sq Epi) None Seen [facility] HospitalHbejcsfGWWZFSHIMS5754-33-94 18:46:00 Test Item Value Reference Range Interpretation Comments MCHC (test code = MCHC) 32.4 32.0-36.0 [facility] AND [id number] 18:46:00 Test Item Value Reference Range Interpretation Comments UA Leuk Est (test Negative (07/22/14 1:46 code = UA Leuk Est) PM) [facility] CenterAbhbkxxILQHEPZKPA9845-62-05 18:46:00 Test Item Value Reference Range Interpretation Comments [place]-Hep C Ab (test Negative *NA*(07/22/14 code = [place]-Hep C 1:46 PM) Ab) [facility] AND [id number] 18:46:00 Test Item Value Reference Range Interpretation Comments UA Nitrite (test code Negative (07/22/14 1:46 = UA Nitrite) PM) [facility] AND [id number] 18:46:00 Test Item Value Reference Range Interpretation Comments UA Urobilinogen (test code = UA <=1.0 mg/dL 0.1-1.0 Urobilinogen) [facility] AND [id number] 18:46:00 Test Item Value Reference Range Interpretation Comments UA Blood (test code = Negative (07/22/14 1:46 UA Blood) PM) [facility] AND [id number] 18:46:00 Test Item Value Reference Range Interpretation Comments UA Sq Epi (test code = UA Sq Epi) None Seen [facility] AND [id number] 18:46:00 Test Item Value Reference Range Interpretation Comments UA Ketones (test code = UA Negative mg/dL Ketones) [facility] AND [id number] 18:46:00 Test Item Value Reference Range Interpretation Comments UA Leuk Est (test Negative (07/22/14 1:46 code = UA Leuk Est) PM) [facility] AND [id number] 18:46:00 Test Item Value Reference Range Interpretation Comments UA Bili (test code = Negative *NA*(07/22/14 UA Bili) 1:46 PM) [facility] AND [id number] 18:46:00 Test Item Value Reference Range Interpretation Comments UA Nitrite (test code Negative (07/22/14 1:46 = UA Nitrite) PM) [facility] AND [id number] 18:46:00 Test Item Value Reference Range Interpretation Comments UA Bacteria (test code = UA Occasional /HPF Bacteria) [facility] AND [id number] 18:46:00 Test Item Value Reference Range Interpretation Comments UA Blood (test code = Negative (07/22/14 1:46 UA Blood) PM) [facility] AND [id number] 18:46:00 Test Item Value Reference Range Interpretation Comments UA RBC (test code = no gt See_Comment [Automa elizabeth message] The UA RBC) system which ge nerated this result transmit leizabeth reference range : <=2. The reference range was not used to interpr et this result as lukas l/abnormal. [facility] AND [id number] 18:46:00 Test Item Value Reference Range Interpretation Comments UA Ketones (test code = UA Negative mg/dL Ketones) [facility] AND [id number] 18:46:00 Test Item Value Reference Range Interpretation Comments UA WBC (test code = 1 See_Comment [Automa elizabeth message] The UA WBC) system which ge nerated this result transmit elizabeth reference range : <=5. The reference range was not used to interpr et this result as lukas l/abnormal. [facility] AND [id number] 18:46:00 Test Item Value Reference Range Interpretation Comments UA Bili (test code = Negative *NA*(07/22/14 UA Bili) 1:46 PM) [facility] AND [id number] 18:46:00 Test Item Value Reference Range Interpretation Comments UA Glucose (test code = UA Glucose) 30 mg/dL [facility] AND [id number] 18:46:00 Test Item Value Reference Range Interpretation Comments UA Bacteria (test code = UA Occasional /HPF Bacteria) [facility] AND [id number] 18:46:00 Test Item Value Reference Range Interpretation Comments UA Protein (test code = UA Negative mg/dL Protein) [facility] AND [id number] 18:46:00 Test Item Value Reference Range Interpretation Comments UA RBC (test code = no gt See_Comment [Automa elizabeth message] The UA RBC) system which ge nerated this result transmit elizabeth reference range : <=2. The reference range was not used to interpr et this result as lukas l/abnormal. [facility] AND [id number] 18:46:00 Test Item Value Reference Range Interpretation Comments UA pH (test code = UA pH) 6.5 5.0-8.0 [facility] AND [id number] 18:46:00 Test Item Value Reference Range Interpretation Comments UA WBC (test code = 1 See_Comment [Automa elizabeth message] The UA WBC) system which ge nerated this result transmit elizabeth reference range : <=5. The reference range was not used to interpr et this result as lukas l/abnormal. [facility] AND [id number] 18:46:00 Test Item Value Reference Range Interpretation Comments UA Turbidity (test code = Clear (07/22/14 1:46 UA Turbidity) PM) [facility] AND [id number] 18:46:00 Test Item Value Reference Range Interpretation Comments UA Glucose (test code = UA Glucose) 30 mg/dL [facility] AND [id number] 18:46:00 Test Item Value Reference Range Interpretation Comments UA Spec Grav (test code = UA Spec Grav) 1.010 [facility] AND [id number] 18:46:00 Test Item Value Reference Range Interpretation Comments UA Protein (test code = UA Negative mg/dL Protein) [facility] AND [id number] 18:46:00 Test Item Value Reference Range Interpretation Comments UA Color (test code = Light Yellow UA Color) *NA*(07/22/14 1:46 PM) [facility] [id number] 18:46:00 Test Item Value Reference Range Interpretation Comments UA pH (test code = UA pH) 6.5 5.0-8.0 [facility] AND [id number] 18:46:00 Test Item Value Reference Range Interpretation Comments UA Turbidity (test code = Clear (07/22/14 1:46 UA Turbidity) PM) [facility] AND [id number] 18:46:00 Test Item Value Reference Range Interpretation Comments UA Spec Grav (test code = UA Spec Grav) 1.010 [facility] AND [id number] 18:46:00 Test Item Value Reference Range Interpretation Comments UA Color (test code = Light Yellow UA Color) *NA*(07/22/14 1:46 PM) [facility] [id number] 18:46:00 Test Item Value Reference Range Interpretation Comments Magnesium Lvl (test code = Magnesium 1.8 1.8-2.4 Lvl) [facility] Su[id number] 18:46:00 Test Item Value Reference Range Interpretation Comments AGAP (test code = AGAP) 13.2 10.0-20.0 [facility] Surgery[id number] 18:46:00 Test Item Value Reference Range Interpretation Comments B/C Ratio (test code = B/C Ratio) 18 6-25 [facility] Surgery[id number] 18:46:00 Test Item Value Reference Range Interpretation Comments A/G Ratio (test code = A/G Ratio) 1.1 0.7-1.6 [facility] Su[id number] 18:46:00 Test Item Value Reference Range Interpretation Comments Globulin (test code = Globulin) 3.3 2.0-4.0 [facility] Surgery[id number] 18:46:00 Test Item Value Reference Range Interpretation Comments eGFR (test code = eGFR) 99 [facility] Surgery[id number] 18:46:00 Test Item Value Reference Range Interpretation Comments Calcium Lvl (test code = Calcium Lvl) 9.0 8.5-10.5 [facility] SurgeryKaaqbbzBGKFGGZEIGOV2425-89-12 18:46:00 Test Item Value Reference Range Interpretation Comments Chloride Lvl (test code = Chloride Lvl) 106 95-109 [facility] SurgeryGjfnrodYXGYGKYNXNIM0255-45-35 18:46:00 Test Item Value Reference Range Interpretation Comments Creatinine Lvl (test code = Creatinine 0.9 0.5-1.4 Lvl) [facility] Surgery[id number] 18:46:00 Test Item Value Reference Range Interpretation Comments Potassium Lvl (test code = Potassium 4.2 3.5-5.1 Lvl) [facility] Surgery[id number] 18:46:00 Test Item Value Reference Range Interpretation Comments Sodium Lvl (test code = Sodium Lvl) 139 135-145 [facility] SurgeryYijlakgRODTEJXZOULB2733-34-09 18:46:00 Test Item Value Reference Range Interpretation Comments CO2 (test code = CO2) 24 24-32 [facility] Surgery[id number] 18:46:00 Test Item Value Reference Range Interpretation Comments BUN (test code = BUN) 16 7-22 [facility] Surgery[id number] 18:46:00 Test Item Value Reference Range Interpretation Comments Glucose Lvl (test code = Glucose Lvl) 141 70-99 [facility] SurgeryRfkwvhoANIKWSULRQOB0032-29-48 18:46:00 Test Item Value Reference Range Interpretation Comments Albumin Lvl (test code = Albumin Lvl) 3.6 3.5-5.0 [facility] Su[id number] 18:46:00 Test Item Value Reference Range Interpretation Comments Alk Phos (test code = Alk Phos) 65 39-136 [facility] Surgery[id number] 18:46:00 Test Item Value Reference Range Interpretation Comments Bili Total (test code = Bili Total) 0.3 0.2-1.3 [facility] SurgeryEtxqlldDTXMQRJTJISS4129-01-51 18:46:00 Test Item Value Reference Range Interpretation Comments ALT (test code = ALT) 100 See_Comment [Auto mated message] The system which ge nerated this result transmit elizabeth reference range : <=65. The reference range was not used to interpr et this result as lukas l/abnormal. [facility] SurgeryNuqsfmlJRIOOJHMEBTW8770-48-81 18:46:00 Test Item Value Reference Range Interpretation Comments AST (test code = AST) 53 See_Comment [Auto mated message] The system which ge nerated this result transmit elizabeth reference range : <=37. The reference range was not used to interpr et this result as lukas l/abnormal. [facility] SurgeryKidmbehCLHJLUVKBCCD5171-10-71 18:46:00 Test Item Value Reference Range Interpretation Comments Total Protein (test code = Total 6.9 6.4-8.4 Protein) [facility] Hospit[id number] 18:46:00 Test Item Value Reference Range Interpretation Comments Eosinophils (test code = 4.2 See_Comment [A utomated message] The Eosinophils) system which ge nerated this result tra nsmitted reference range : <=4.0. The reference r mitra was not used to int erpret this result as normal/abnormal . [facility] HospitalZtbjohwMFBFSMREIW9859-01-56 18:46:00 Test Item Value Reference Range Interpretation Comments Segs (test code = Segs) 56.4 45.0-75.0 [facility] HospitalCdezimlTFZCSOXGPL7182-07-11 18:46:00 Test Item Value Reference Range Interpretation Comments Monocytes (test code = Monocytes) 10.3 2.0-12.0 [facility] HospitalXkgwbraICPDBHNERV8044-11-45 18:46:00 Test Item Value Reference Range Interpretation Comments Lymphocytes (test code = Lymphocytes) 28.0 20.0-40.0 [facility] HospitalZvwfggsCETFWJCVEE1221-88-51 18:46:00 Test Item Value Reference Range Interpretation Comments Monocytes # (test code 0.5 See_Comment [Aut omated message] The = Monocytes #) system which generated this result tra nsmitted reference range : <=0.8. The reference r mitra was not used to int erpret this result as normal/abnormal . [facility] HospitalOgyrovuHGREDMDKJH8547-11-98 18:46:00 Test Item Value Reference Range Interpretation Comments Basophils (test code = 1.1 See_Comment [Aut omated message] The Basophils) system which ge nerated this result tra nsmitted reference range : <=1.0. The reference r mitra was not used to int erpret this result as normal/abnormal . [facility] HospitalHojddfkPINLVLFGZP6649-61-19 18:46:00 Test Item Value Reference Range Interpretation Comments Lymphocytes # (test code = Lymphocytes 1.5 1.0-5.5 #) [facility] HospitalTrofeokNABXLQHIPL7487-26-35 18:46:00 Test Item Value Reference Range Interpretation Comments Segs-Bands # (test code = Segs-Bands #) 2.9 1.5-8.1 [facility] HospitalEsrpdrgKPSRGEVWRZ8481-18-00 18:46:00 Test Item Value Reference Range Interpretation Comments Eosinophils # (test code 0.2 See_Comment [A utomated message] The = Eosinophils #) system whic h generated this result tra nsmitted reference range : <=0.5. The reference r mitra was not used to int erpret this result as normal/abnormal . [facility] Hospit[id number] 18:46:00 Test Item Value Reference Range Interpretation Comments Basophils # (test code 0.1 See_Comment [Aut omated message] The = Basophils #) system which generated this result tra nsmitted reference range : <=0.2. The reference r mitra was not used to int erpret this result as normal/abnormal . [facility] HospitalImjucynCFRAEWQCLW9306-41-34 18:46:00 Test Item Value Reference Range Interpretation Comments PT (test code = PT) 11.2 s 12.0-14.7 [facility] HospitalDvuygrpHTSGBRLFWJ3780-38-42 18:46:00 Test Item Value Reference Range Interpretation Comments INR (test code = INR) 0.82 0.85-1.17 [facility] HospitalFbcrtfaJWXLVHDHJQ4888-12-67 18:46:00 Test Item Value Reference Range Interpretation Comments PTT (test code = PTT) 28.6 s 22.9-35.8 [facility] HospitalKqxntutDQXAOXTJMR3809-70-98 18:46:00 Test Item Value Reference Range Interpretation Comments MPV (test code = MPV) 8.1 7.4-10.4 [facility] HospitalQgrrrpxLFYWYXBSVS2167-18-14 18:46:00 Test Item Value Reference Range Interpretation Comments Platelet (test code = Platelet) 301 133-450 [facility] HospitalDdvtsnsGMBHZQCKXJ1946-70-43 18:46:00 Test Item Value Reference Range Interpretation Comments RDW (test code = RDW) 14.5 11.5-14.5 [facility] HospitalBupvwhiYJHAWMYYAB7201-91-12 18:46:00 Test Item Value Reference Range Interpretation Comments RBC (test code = RBC) 4.84 4.70-6.10 [facility]XzhrdawRMUQUHSERU2429-43-77 18:46:00 Test Item Value Reference Range Interpretation Comments Hgb (test code = Hgb) 14.4 14.0-18.0 [facility] HospitalEwtsbavQDJSIUAVSU2959-20-46 18:46:00 Test Item Value Reference Range Interpretation Comments WBC (test code = WBC) 5.2 3.7-10.4 [facility] HospitalOildckwOSOODOZELV1085-77-42 18:46:00 Test Item Value Reference Range Interpretation Comments MCH (test code = MCH) 29.8 pg 27.0-31.0 [facility] HospitalAywzrykSKDLYFXFNR2498-10-63 18:46:00 Test Item Value Reference Range Interpretation Comments MCV (test code = MCV) 92.0 80.0-94.0 [facility] HospitalUmdjszoXKPRXKXBES4715-98-77 18:46:00 Test Item Value Reference Range Interpretation Comments Hct (test code = Hct) 44.5 42.0-54.0 [facility] HospitalGhecuoyZSLXJWVTOD9397-17-93 18:46:00 Test Item Value Reference Range Interpretation Comments MCHC (test code = MCHC) 32.4 32.0-36.0 [facility]QiixqnrUDIROWGCWE7567-12-55 18:46:00 Test Item Value Reference Range Interpretation Comments [place]-Hep C Ab (test Negative *NA*(07/22/14 code = [place]-Hep C 1:46 PM) Ab) [facility] AND [id number] 18:46:00 Test Item Value Reference Range Interpretation Comments UA Urobilinogen (test code = UA <=1.0 mg/dL 0.1-1.0 Urobilinogen) [facility] AND [id number] 18:46:00 Test Item Value Reference Range Interpretation Comments UA Sq Epi (test code = UA Sq Epi) None Seen [facility] AND [id number] 18:46:00 Test Item Value Reference Range Interpretation Comments UA Leuk Est (test Negative (07/22/14 1:46 code = UA Leuk Est) PM) [facility] AND [id number] 18:46:00 Test Item Value Reference Range Interpretation Comments UA Nitrite (test code Negative (07/22/14 1:46 = UA Nitrite) PM) [facility] AND [id number] 18:46:00 Test Item Value Reference Range Interpretation Comments UA Blood (test code = Negative (07/22/14 1:46 UA Blood) PM) [facility] AND [id number] 18:46:00 Test Item Value Reference Range Interpretation Comments UA Ketones (test code = UA Negative mg/dL Ketones) [facility] AND [id number] 18:46:00 Test Item Value Reference Range Interpretation Comments UA Bili (test code = Negative *NA*(07/22/14 UA Bili) 1:46 PM) [facility] AND [id number] 18:46:00 Test Item Value Reference Range Interpretation Comments UA Bacteria (test code = UA Occasional /HPF Bacteria) [facility] AND [id number] 18:46:00 Test Item Value Reference Range Interpretation Comments UA RBC (test code = no gt See_Comment [Automa elizabeth message] The UA RBC) system which ge nerated this result transmit elizabeth reference range : <=2. The reference range was not used to interpr et this result as lukas l/abnormal. [facility] AND [id number] 18:46:00 Test Item Value Reference Range Interpretation Comments UA WBC (test code = 1 See_Comment [Automa elizabeth message] The UA WBC) system which ge nerated this result transmit elizabeth reference range : <=5. The reference range was not used to interpr et this result as lukas l/abnormal. [facility] AND [id number] 18:46:00 Test Item Value Reference Range Interpretation Comments UA Glucose (test code = UA Glucose) 30 mg/dL [facility] AND [id number] 18:46:00 Test Item Value Reference Range Interpretation Comments UA Protein (test code = UA Negative mg/dL Protein) [facility] AND [id number] 18:46:00 Test Item Value Reference Range Interpretation Comments UA pH (test code = UA pH) 6.5 5.0-8.0 [facility] AND [id number] 18:46:00 Test Item Value Reference Range Interpretation Comments UA Turbidity (test code = Clear (07/22/14 1:46 UA Turbidity) PM) [facility] [id number] 18:46:00 Test Item Value Reference Range Interpretation Comments UA Spec Grav (test code = UA Spec Grav) 1.010 [facility] AND [id number] 18:46:00 Test Item Value Reference Range Interpretation Comments UA Color (test code = Light Yellow UA Color) *NA*(07/22/14 1:46 PM) [facility] [id number] 18:46:00 Test Item Value Reference Range Interpretation Comments Magnesium Lvl (test code = Magnesium 1.8 1.8-2.4 Lvl) [facility] SurgeryVgfabqhEPAZBTEMICMX3829-94-58 18:46:00 Test Item Value Reference Range Interpretation Comments AGAP (test code = AGAP) 13.2 10.0-20.0 [facility] SurgeryFpydhseTFPIRAAYMDSP5882-71-34 18:46:00 Test Item Value Reference Range Interpretation Comments B/C Ratio (test code = B/C Ratio) 18 6-25 [facility] SurgeryTfgtzeqXWXGFICTTRKU5257-51-70 18:46:00 Test Item Value Reference Range Interpretation Comments A/G Ratio (test code = A/G Ratio) 1.1 0.7-1.6 [facility] SurgeryNwwfmwgJTRXNDWYDIIZ6430-76-44 18:46:00 Test Item Value Reference Range Interpretation Comments Globulin (test code = Globulin) 3.3 2.0-4.0 [facility] SurgeryYkpddrkSHQBJHJWKEOH9052-06-46 18:46:00 Test Item Value Reference Range Interpretation Comments eGFR (test code = eGFR) 99 [facility] SurgeryBrwafiaVQUCGLBVSEUE1954-99-01 18:46:00 Test Item Value Reference Range Interpretation Comments Calcium Lvl (test code = Calcium Lvl) 9.0 8.5-10.5 [facility] SurgeryCdalonzJJYFEASWCULG2440-74-85 18:46:00 Test Item Value Reference Range Interpretation Comments Chloride Lvl (test code = Chloride Lvl) 106 95-109 [facility] SurgeryKkwocwaKJVZDHHOTBTB5411-42-10 18:46:00 Test Item Value Reference Range Interpretation Comments Creatinine Lvl (test code = Creatinine 0.9 0.5-1.4 Lvl) [facility] SurgeryVivjxgzXVKCNFNWHKHG0266-86-75 18:46:00 Test Item Value Reference Range Interpretation Comments Potassium Lvl (test code = Potassium 4.2 3.5-5.1 Lvl) [facility] SurgeryLgkhptiUZIRTIWPUXSU7771-49-44 18:46:00 Test Item Value Reference Range Interpretation Comments Sodium Lvl (test code = Sodium Lvl) 139 135-145 [facility] SurgeryYnypsolHGZJCOMERQMV5843-58-74 18:46:00 Test Item Value Reference Range Interpretation Comments CO2 (test code = CO2) 24 24-32 [facility] SurgeryZpckdtkPEPLOWXKMYKN6332-11-97 18:46:00 Test Item Value Reference Range Interpretation Comments BUN (test code = BUN) 16 7-22 [facility] SurgeryEumtnlrEMDKDUNPYZEG4753-76-55 18:46:00 Test Item Value Reference Range Interpretation Comments Glucose Lvl (test code = Glucose Lvl) 141 70-99 [facility] SurgeryVcejircKRWDAKDVJPDM5562-77-31 18:46:00 Test Item Value Reference Range Interpretation Comments Albumin Lvl (test code = Albumin Lvl) 3.6 3.5-5.0 [facility] SurgeryBusglddWHQSHBNHUZHO7682-09-46 18:46:00 Test Item Value Reference Range Interpretation Comments Alk Phos (test code = Alk Phos) 65 39-136 [facility] SurgeryKjveimzZGDDLRHLUPSY1042-66-83 18:46:00 Test Item Value Reference Range Interpretation Comments Bili Total (test code = Bili Total) 0.3 0.2-1.3 [facility] SurgeryDnttivyCXQWFKJNMYGC6132-24-56 18:46:00 Test Item Value Reference Range Interpretation Comments ALT (test code = ALT) 100 See_Comment [Auto mated message] The system which ge nerated this result transmit elizabeth reference range : <=65. The reference range was not used to interpr et this result as lukas l/abnormal. [facility] SurgerySenpplwPSPBBJIFQUXV3966-65-59 18:46:00 Test Item Value Reference Range Interpretation Comments AST (test code = AST) 53 See_Comment [Auto mated message] The system which ge nerated this result transmit elizabeth reference range : <=37. The reference range was not used to interpr et this result as lukas l/abnormal. [facility] SurgeryFhkncqoMQOTVRCEESLT9401-17-41 18:46:00 Test Item Value Reference Range Interpretation Comments Total Protein (test code = Total 6.9 6.4-8.4 Protein) [facility]WyqkthcLVYFKATOTT1056-22-03 18:46:00 Test Item Value Reference Range Interpretation Comments Eosinophils (test code = 4.2 See_Comment [A utomated message] The Eosinophils) system which ge nerated this result tra nsmitted reference range : <=4.0. The reference r mitra was not used to int erpret this result as normal/abnormal . [facility] HospitalXwfjsqtSJQKGUECSP8817-23-60 18:46:00 Test Item Value Reference Range Interpretation Comments Segs (test code = Segs) 56.4 45.0-75.0 [facility] HospitalDxclcfeOFMQSGJMGK0581-92-05 18:46:00 Test Item Value Reference Range Interpretation Comments Monocytes (test code = Monocytes) 10.3 2.0-12.0 [facility] HospitalVahueqtYLJOOQFGJE3932-11-34 18:46:00 Test Item Value Reference Range Interpretation Comments Lymphocytes (test code = Lymphocytes) 28.0 20.0-40.0 [facility] HospitalOceeoexINHYYADFKG1255-22-95 18:46:00 Test Item Value Reference Range Interpretation Comments Monocytes # (test code 0.5 See_Comment [Aut omated message] The = Monocytes #) system which generated this result tra nsmitted reference range : <=0.8. The reference r mitra was not used to int erpret this result as normal/abnormal . [facility] HospitalAkmnnhzOVQHBMDIXZ9850-31-35 18:46:00 Test Item Value Reference Range Interpretation Comments Basophils (test code = 1.1 See_Comment [Aut omated message] The Basophils) system which ge nerated this result tra nsmitted reference range : <=1.0. The reference r mitra was not used to int erpret this result as normal/abnormal . [facility] HospitalQlcwrdmMYRANXQEXO2719-73-00 18:46:00 Test Item Value Reference Range Interpretation Comments Lymphocytes # (test code = Lymphocytes 1.5 1.0-5.5 #) [facility] HospitalLfvavdfCVVXHJELGO9111-10-55 18:46:00 Test Item Value Reference Range Interpretation Comments Segs-Bands # (test code = Segs-Bands #) 2.9 1.5-8.1 [facility] HospitalQlfmqzjVXZYHCMMIF3360-54-18 18:46:00 Test Item Value Reference Range Interpretation Comments Eosinophils # (test code 0.2 See_Comment [A utomated message] The = Eosinophils #) system ic h generated this result tra nsmitted reference range : <=0.5. The reference r mitra was not used to int erpret this result as normal/abnormal . [facility] HospitalKofeduxDMSWQFYEKR5485-71-19 18:46:00 Test Item Value Reference Range Interpretation Comments Basophils # (test code 0.1 See_Comment [Aut omated message] The = Basophils #) system which generated this result tra nsmitted reference range : <=0.2. The reference r mitra was not used to int erpret this result as normal/abnormal . [facility] HospitalLdewudeSHNMMFAPYC3335-69-41 18:46:00 Test Item Value Reference Range Interpretation Comments PT (test code = PT) 11.2 s 12.0-14.7 [facility] HospitalOlazjdgTJSRJFYSWL7907-51-76 18:46:00 Test Item Value Reference Range Interpretation Comments INR (test code = INR) 0.82 0.85-1.17 [facility] HospitalRvrfubtFTMJCBUEPU4991-12-61 18:46:00 Test Item Value Reference Range Interpretation Comments PTT (test code = PTT) 28.6 s 22.9-35.8 [facility] HospitalKxxfesuMCCLTFVCPA8647-62-47 18:46:00 Test Item Value Reference Range Interpretation Comments MPV (test code = MPV) 8.1 7.4-10.4 [facility] HospitalJembpzeWYRBIHLFSG2287-05-71 18:46:00 Test Item Value Reference Range Interpretation Comments Platelet (test code = Platelet) 301 133-450 [facility] HospitalSorgjxzXAFNWAZVNY8887-72-36 18:46:00 Test Item Value Reference Range Interpretation Comments RDW (test code = RDW) 14.5 11.5-14.5 [facility] HospitalGjnnpprBNXVABNOQR3882-34-48 18:46:00 Test Item Value Reference Range Interpretation Comments RBC (test code = RBC) 4.84 4.70-6.10 [facility] HospitalSjbeeneYIDWMYEXBB8764-38-76 18:46:00 Test Item Value Reference Range Interpretation Comments Hgb (test code = Hgb) 14.4 14.0-18.0 [facility] HospitalVxzplhvCLGLPPUAJF4895-70-28 18:46:00 Test Item Value Reference Range Interpretation Comments WBC (test code = WBC) 5.2 3.7-10.4 [facility] HospitalMnepafuUXANUIXJHW2082-39-24 18:46:00 Test Item Value Reference Range Interpretation Comments MCH (test code = MCH) 29.8 pg 27.0-31.0 [facility]feVSHZIGMURN0702-04-81 18:46:00 Test Item Value Reference Range Interpretation Comments MCV (test code = MCV) 92.0 80.0-94.0 [facility] FpbjctwCHUSOZGUSQ2220-12-52 18:46:00 Test Item Value Reference Range Interpretation Comments Hct (test code = Hct) 44.5 42.0-54.0 [facility] XrpsccbREMCCIXBRJ4839-44-62 18:46:00 Test Item Value Reference Range Interpretation Comments MCHC (test code = MCHC) 32.4 32.0-36.0 [facility] MvhkkqvHMAUAABXMZ3032-27-50 18:46:00 Test Item Value Reference Range Interpretation Comments [place]-Hep C Ab (test Negative *NA*(07/22/14 code = [place]-Hep C 1:46 PM) Ab) [facility] AND [id number] 18:46:00 Test Item Value Reference Range Interpretation Comments UA Urobilinogen (test code = UA <=1.0 mg/dL 0.1-1.0 Urobilinogen) [facility] AND [id number] 18:46:00 Test Item Value Reference Range Interpretation Comments UA Sq Epi (test code = UA Sq Epi) None Seen [facility] AND [id number] 18:46:00 Test Item Value Reference Range Interpretation Comments UA Leuk Est (test Negative (07/22/14 1:46 code = UA Leuk Est) PM) [facility] AND [id number] 18:46:00 Test Item Value Reference Range Interpretation Comments UA Nitrite (test code Negative (07/22/14 1:46 = UA Nitrite) PM) [facility] AND [id number] 18:46:00 Test Item Value Reference Range Interpretation Comments UA Blood (test code = Negative (07/22/14 1:46 UA Blood) PM) [facility] AND [id number] 18:46:00 Test Item Value Reference Range Interpretation Comments UA Ketones (test code = UA Negative mg/dL Ketones) [facility] AND [id number] 18:46:00 Test Item Value Reference Range Interpretation Comments UA Bili (test code = Negative *NA*(6/9/15 UA Bili) 1:46 PM) [facility] [id number] 18:46:00 Test Item Value Reference Range Interpretation Comments UA Bacteria (test code = UA Occasional /HPF Bacteria) [facility] [id number] 18:46:00 Test Item Value Reference Range Interpretation Comments UA RBC (test code = no gt See_Comment [Automa elizabeth message] The UA RBC) system which ge nerated this result transmit elizabeth reference range : <=2. The reference range was not used to interpr et this result as lukas l/abnormal. [facility] [id number] 18:46:00 Test Item Value Reference Range Interpretation Comments UA WBC (test code = 1 See_Comment [Automa elizabeth message] The UA WBC) system which ge nerated this result transmit elizabeth reference range : <=5. The reference range was not used to interpr et this result as lukas l/abnormal. [facility] [id number] 18:46:00 Test Item Value Reference Range Interpretation Comments UA Glucose (test code = UA Glucose) 30 mg/dL [facility] [id number] 18:46:00 Test Item Value Reference Range Interpretation Comments UA Protein (test code = UA Negative mg/dL Protein) [facility] [id number] 18:46:00 Test Item Value Reference Range Interpretation Comments UA pH (test code = UA pH) 6.5 5.0-8.0 [facility] AND [id number] 18:46:00 Test Item Value Reference Range Interpretation Comments UA Turbidity (test code = Clear (07/22/14 1:46 UA Turbidity) PM) [facility] [id number] 18:46:00 Test Item Value Reference Range Interpretation Comments UA Spec Grav (test code = UA Spec Grav) 1.010 [facility] [id number] 18:46:00 Test Item Value Reference Range Interpretation Comments UA Color (test code = Light Yellow UA Color) *NA*(07/22/14 1:46 PM) [facility] [id number] 18:46:00 Test Item Value Reference Range Interpretation Comments Magnesium Lvl (test code = Magnesium 1.8 1.8-2.4 Lvl) [facility] BftxfsmLCHFWWLRVOME0418-07-99 18:46:00 Test Item Value Reference Range Interpretation Comments AGAP (test code = AGAP) 13.2 10.0-20.0 [facility] SurgeryUlagccaDPHOUNRGKMYH1918-46-69 18:46:00 Test Item Value Reference Range Interpretation Comments B/C Ratio (test code = B/C Ratio) 18 6-25 [facility] SurgeryWcyovbkPSNJVYCHCDTV8607-75-47 18:46:00 Test Item Value Reference Range Interpretation Comments A/G Ratio (test code = A/G Ratio) 1.1 0.7-1.6 [facility] SurgeryXddgpdkNGZFRJYPULSR1297-47-73 18:46:00 Test Item Value Reference Range Interpretation Comments Globulin (test code = Globulin) 3.3 2.0-4.0 [facility] SurgeryQdrvgolEIPGRZUBQBUL0411-96-63 18:46:00 Test Item Value Reference Range Interpretation Comments eGFR (test code = eGFR) 99 [facility] SurgeryQivzhvcYZRMFUDZPGRM5800-19-47 18:46:00 Test Item Value Reference Range Interpretation Comments Calcium Lvl (test code = Calcium Lvl) 9.0 8.5-10.5 [facility] SurgeryZvbmbbvIHUGQTMUJPQF3570-38-53 18:46:00 Test Item Value Reference Range Interpretation Comments Chloride Lvl (test code = Chloride Lvl) 106 95-109 [facility] SurgeryTpnwnkqPMWTPZYPBYOY8719-11-41 18:46:00 Test Item Value Reference Range Interpretation Comments Creatinine Lvl (test code = Creatinine 0.9 0.5-1.4 Lvl) [facility] SurgeryErtunffNPIQSIWHCGAT1714-16-89 18:46:00 Test Item Value Reference Range Interpretation Comments Potassium Lvl (test code = Potassium 4.2 3.5-5.1 Lvl) [facility] SurgeryUivxkhbQIJBIYRPYGXN1374-64-08 18:46:00 Test Item Value Reference Range Interpretation Comments Sodium Lvl (test code = Sodium Lvl) 139 135-145 [facility] SurgeryOzqvrncQOUIKRFYKFFT4298-28-63 18:46:00 Test Item Value Reference Range Interpretation Comments CO2 (test code = CO2) 24 24-32 [facility] SurgeryAsijigcLEZJMSGXLKIZ3298-46-10 18:46:00 Test Item Value Reference Range Interpretation Comments BUN (test code = BUN) 16 7-22 [facility] SurgeryKmctmrvHDCQPYADOCHX5068-17-22 18:46:00 Test Item Value Reference Range Interpretation Comments Glucose Lvl (test code = Glucose Lvl) 141 70-99 [facility] SurgeryWckqjhmGQIAFALCCLSA6539-82-78 18:46:00 Test Item Value Reference Range Interpretation Comments Albumin Lvl (test code = Albumin Lvl) 3.6 3.5-5.0 [facility] SurgeryFpwjirjSLMFMQNFUYDA0596-79-23 18:46:00 Test Item Value Reference Range Interpretation Comments Alk Phos (test code = Alk Phos) 65 39-136 [facility] SurgeryVcmpvusLVOBZEEPPOOV2554-40-91 18:46:00 Test Item Value Reference Range Interpretation Comments Bili Total (test code = Bili Total) 0.3 0.2-1.3 [facility] SurgeryUvdflyiSANICLXTSFJH6755-62-32 18:46:00 Test Item Value Reference Range Interpretation Comments ALT (test code = ALT) 100 See_Comment [Auto mated message] The system which ge nerated this result transmit elizabeth reference range : <=65. The reference range was not used to interpr et this result as lukas l/abnormal. [facility] SurgeryWdmsuysOUNLSYOOHTEE7029-78-18 18:46:00 Test Item Value Reference Range Interpretation Comments AST (test code = AST) 53 See_Comment [Auto mated message] The system which ge nerated this result transmit elizabeth reference range : <=37. The reference range was not used to interpr et this result as lukas l/abnormal. [facility] SurgeryVulfxzbHSPBWAZMTJZW3439-15-03 18:46:00 Test Item Value Reference Range Interpretation Comments Total Protein (test code = Total 6.9 6.4-8.4 Protein) [facility] HospitalHfoyinqQZAEIBNEDE7382-26-24 18:46:00 Test Item Value Reference Range Interpretation Comments Eosinophils (test code = 4.2 See_Comment [A utomated message] The Eosinophils) system which ge nerated this result tra nsmitted reference range : <=4.0. The reference r mitra was not used to int erpret this result as normal/abnormal . [facility] HospitalHukzpfrVILVCYRGCW9567-71-10 18:46:00 Test Item Value Reference Range Interpretation Comments Segs (test code = Segs) 56.4 45.0-75.0 [facility] HospitalCvkfcxiQRYJYMPIIX1681-78-73 18:46:00 Test Item Value Reference Range Interpretation Comments Monocytes (test code = Monocytes) 10.3 2.0-12.0 [facility] HospitalSgtawnlOAMIDFYWZM6584-13-84 18:46:00 Test Item Value Reference Range Interpretation Comments Lymphocytes (test code = Lymphocytes) 28.0 20.0-40.0 [facility] HospitalOomihozHNWQEBLOSS0363-59-65 18:46:00 Test Item Value Reference Range Interpretation Comments Monocytes # (test code 0.5 See_Comment [Aut omated message] The = Monocytes #) system which generated this result tra nsmitted reference range : <=0.8. The reference r mitra was not used to int erpret this result as normal/abnormal . [facility] HospitalIuxmtboOXZEULGLVJ2152-63-03 18:46:00 Test Item Value Reference Range Interpretation Comments Basophils (test code = 1.1 See_Comment [Aut omated message] The Basophils) system which ge nerated this result tra nsmitted reference range : <=1.0. The reference r mitra was not used to int erpret this result as normal/abnormal . [facility] HospitalZzgqswlGHBOFQCRGZ5882-68-38 18:46:00 Test Item Value Reference Range Interpretation Comments Lymphocytes # (test code = Lymphocytes 1.5 1.0-5.5 #) [facility] HospitalJpurdhnUAOPFAMNFK8601-27-51 18:46:00 Test Item Value Reference Range Interpretation Comments Segs-Bands # (test code = Segs-Bands #) 2.9 1.5-8.1 [facility] HospitalIfscwwuONRWDTBUAI8865-65-80 18:46:00 Test Item Value Reference Range Interpretation Comments Eosinophils # (test code 0.2 See_Comment [A utomated message] The = Eosinophils #) system [facility] h generated this result tra nsmitted reference range : <=0.5. The reference r mitra was not used to int erpret this result as normal/abnormal . [facility] HospitalAicigvvHZZAKQANSJ6742-06-42 18:46:00 Test Item Value Reference Range Interpretation Comments Basophils # (test code 0.1 See_Comment [Aut omated message] The = Basophils #) system which generated this result tra nsmitted reference range : <=0.2. The reference r mitra was not used to int erpret this result as normal/abnormal . [facility] HospitalRxtquajTNOWPOGUDP6869-65-81 18:46:00 Test Item Value Reference Range Interpretation Comments PT (test code = PT) 11.2 s 12.0-14.7 [facility] HospitalDsfqtroJXZZSHHEIM3911-87-52 18:46:00 Test Item Value Reference Range Interpretation Comments INR (test code = INR) 0.82 0.85-1.17 [facility] HospitalUkamqxrDBJUTHERDG3339-08-47 18:46:00 Test Item Value Reference Range Interpretation Comments PTT (test code = PTT) 28.6 s 22.9-35.8 [facility] HospitalHbyaemoJCGIHAUGZX0851-79-21 18:46:00 Test Item Value Reference Range Interpretation Comments MPV (test code = MPV) 8.1 7.4-10.4 [facility] HospitalZmossmfUGYOFVWLPN3542-40-97 18:46:00 Test Item Value Reference Range Interpretation Comments Platelet (test code = Platelet) 301 133-450 [facility] HospitalUccyncwJYDWVIARBO0784-73-86 18:46:00 Test Item Value Reference Range Interpretation Comments RDW (test code = RDW) 14.5 11.5-14.5 [facility] HospitalLlzrsnzFMGYRDCXWJ0209-87-46 18:46:00 Test Item Value Reference Range Interpretation Comments RBC (test code = RBC) 4.84 4.70-6.10 [facility] HospitalAitsjfiFRXPPTTBWW4826-80-90 18:46:00 Test Item Value Reference Range Interpretation Comments Hgb (test code = Hgb) 14.4 14.0-18.0 [facility] HospitalPelcmvwJDKKDDUXQX3452-70-54 18:46:00 Test Item Value Reference Range Interpretation Comments WBC (test code = WBC) 5.2 3.7-10.4 [facility] HospitalStpjbphQFWNLZGZTB2443-47-79 18:46:00 Test Item Value Reference Range Interpretation Comments MCH (test code = MCH) 29.8 pg 27.0-31.0 [facility] HospitalVsesrqzULJGDDIQVN8575-50-15 18:46:00 Test Item Value Reference Range Interpretation Comments MCV (test code = MCV) 92.0 80.0-94.0 [facility] HospitalLpvkekqIJBEVOAJLF8881-71-29 18:46:00 Test Item Value Reference Range Interpretation Comments Hct (test code = Hct) 44.5 42.0-54.0 [facility] HospitalSpbhglkDEPXGWPMBV3909-96-16 18:46:00 Test Item Value Reference Range Interpretation Comments MCHC (test code = MCHC) 32.4 32.0-36.0 [facility]ROWQUNVDBG4675-[facility] 18:46:00 Test Item Value Reference Range Interpretation Comments [place]-Hep C Ab (test Negative *NA*(07/22/14 code = [place]-Hep C 1:46 PM) Ab) [facility] AND [id number] 18:46:00 Test Item Value Reference Range Interpretation Comments UA Urobilinogen (test code = UA <=1.0 mg/dL 0.1-1.0 Urobilinogen) [facility] AND [id number] 18:46:00 Test Item Value Reference Range Interpretation Comments UA Sq Epi (test code = UA Sq Epi) None Seen [facility] AND [id number] 18:46:00 Test Item Value Reference Range Interpretation Comments UA Leuk Est (test Negative (07/22/14 1:46 code = UA Leuk Est) PM) [facility] AND [id number] 18:46:00 Test Item Value Reference Range Interpretation Comments UA Nitrite (test code Negative (07/22/14 1:46 = UA Nitrite) PM) [facility] AND [id number] 18:46:00 Test Item Value Reference Range Interpretation Comments UA Blood (test code = Negative (07/22/14 1:46 UA Blood) PM) [facility] AND [id number] 18:46:00 Test Item Value Reference Range Interpretation Comments UA Ketones (test code = UA Negative mg/dL Ketones) [facility] AND [id number] 18:46:00 Test Item Value Reference Range Interpretation Comments UA Bili (test code = Negative *NA*(07/22/14 UA Bili) 1:46 PM) [facility] AND [id number] 18:46:00 Test Item Value Reference Range Interpretation Comments UA Bacteria (test code = UA Occasional /HPF Bacteria) [facility] AND [id number] 18:46:00 Test Item Value Reference Range Interpretation Comments UA RBC (test code = no gt See_Comment [Automa elizabeth message] The UA RBC) system which ge nerated this result transmit elizabeth reference range : <=2. The reference range was not used to interpr et this result as lukas l/abnormal. [facility] AND [id number] 18:46:00 Test Item Value Reference Range Interpretation Comments UA WBC (test code = 1 See_Comment [Automa elizabeth message] The UA WBC) system which ge nerated this result transmit elizabeth reference range : <=5. The reference range was not used to interpr et this result as lukas l/abnormal. [facility] AND [id number] 18:46:00 Test Item Value Reference Range Interpretation Comments UA Glucose (test code = UA Glucose) 30 mg/dL [facility] AND [id number] 18:46:00 Test Item Value Reference Range Interpretation Comments UA Protein (test code = UA Negative mg/dL Protein) [facility] AND [id number] 18:46:00 Test Item Value Reference Range Interpretation Comments UA pH (test code = UA pH) 6.5 5.0-8.0 [facility] AND [id number] 18:46:00 Test Item Value Reference Range Interpretation Comments UA Turbidity (test code = Clear (07/22/14 1:46 UA Turbidity) PM) [facility] AND [id number] 18:46:00 Test Item Value Reference Range Interpretation Comments UA Spec Grav (test code = UA Spec Grav) 1.010 [facility] AND [id number] 18:46:00 Test Item Value Reference Range Interpretation Comments UA Color (test code = Light Yellow UA Color) *NA*(07/22/14 1:46 PM) [facility] [id number] 18:46:00 Test Item Value Reference Range Interpretation Comments Magnesium Lvl (test code = Magnesium 1.8 1.8-2.4 Lvl) [facility] SurgeryPtypafzXOUGQQELEISP0431-05-95 18:46:00 Test Item Value Reference Range Interpretation Comments AGAP (test code = AGAP) 13.2 10.0-20.0 [facility] SurgeryKtarghiLQFHICVIUWMN0944-28-47 18:46:00 Test Item Value Reference Range Interpretation Comments B/C Ratio (test code = B/C Ratio) 18 6-25 [facility] SurgeryUawrrbxBBOLBOUZMHHU2027-09-49 18:46:00 Test Item Value Reference Range Interpretation Comments A/G Ratio (test code = A/G Ratio) 1.1 0.7-1.6 [facility] SurgeryJsxezorMCJAXCCEYNEB1269-97-19 18:46:00 Test Item Value Reference Range Interpretation Comments Globulin (test code = Globulin) 3.3 2.0-4.0 [facility] SurgeryBettqxrDIXPNYWHTTAN5523-23-34 18:46:00 Test Item Value Reference Range Interpretation Comments eGFR (test code = eGFR) 99 [facility] SurgeryEzqezexDWCBRHDELILH3141-09-93 18:46:00 Test Item Value Reference Range Interpretation Comments Calcium Lvl (test code = Calcium Lvl) 9.0 8.5-10.5 [facility] SurgeryHygoqgyCWWQXIEJRFXE4994-29-53 18:46:00 Test Item Value Reference Range Interpretation Comments Chloride Lvl (test code = Chloride Lvl) 106 95-109 [facility] SurgeryUlqpttzBMCCSJPQYAAS3039-91-27 18:46:00 Test Item Value Reference Range Interpretation Comments Creatinine Lvl (test code = Creatinine 0.9 0.5-1.4 Lvl) [facility] SurgeryEenxejkRBTKPBVFIKJX6695-54-66 18:46:00 Test Item Value Reference Range Interpretation Comments Potassium Lvl (test code = Potassium 4.2 3.5-5.1 Lvl) [facility] SurgeryFuqdaifBJIGTNFYEPIE6597-55-64 18:46:00 Test Item Value Reference Range Interpretation Comments Sodium Lvl (test code = Sodium Lvl) 139 135-145 [facility] SurgeryWfywpfoEXEZCONVEHCC3985-79-59 18:46:00 Test Item Value Reference Range Interpretation Comments CO2 (test code = CO2) 24 24-32 [facility] SurgeryAzapnicPJOYISPDYFJM9391-66-84 18:46:00 Test Item Value Reference Range Interpretation Comments BUN (test code = BUN) 16 7-22 [facility] SurgeryTkznimaUKSFTXSKYAFK1088-10-34 18:46:00 Test Item Value Reference Range Interpretation Comments Glucose Lvl (test code = Glucose Lvl) 141 70-99 [facility] SurgeryWqubxscOPBVZJRVLBFT2013-74-72 18:46:00 Test Item Value Reference Range Interpretation Comments Albumin Lvl (test code = Albumin Lvl) 3.6 3.5-5.0 [facility] SurgeryZrmqyvwJFZGDWWCMVYN5537-71-06 18:46:00 Test Item Value Reference Range Interpretation Comments Alk Phos (test code = Alk Phos) 65 39-136 [facility] SurgeryEggluhjPBQRFNWFJVBM4525-59-09 18:46:00 Test Item Value Reference Range Interpretation Comments Bili Total (test code = Bili Total) 0.3 0.2-1.3 [facility] SurgeryVemwygdABDZKYMUTTBD1703-03-54 18:46:00 Test Item Value Reference Range Interpretation Comments ALT (test code = ALT) 100 See_Comment [Auto mated message] The system which ge nerated this result transmit elizabeth reference range : <=65. The reference range was not used to interpr et this result as lukas l/abnormal. [facility] SurgeryYibrarcZSVNSJLXOOZV4125-73-66 18:46:00 Test Item Value Reference Range Interpretation Comments AST (test code = AST) 53 See_Comment [Auto mated message] The system which ge nerated this result transmit elizabeth reference range : <=37. The reference range was not used to interpr et this result as lukas l/abnormal. [facility] SurgeryJabcngoEBYPNIDAVRRY5149-07-35 18:46:00 Test Item Value Reference Range Interpretation Comments Total Protein (test code = Total 6.9 6.4-8.4 Protein) [facility] HospitalUcnkswkNLZDEDMGDX7603-73-05 18:46:00 Test Item Value Reference Range Interpretation Comments Eosinophils (test code = 4.2 See_Comment [A utomated message] The Eosinophils) system which ge nerated this result tra nsmitted reference range : <=4.0. The reference r mitra was not used to int erpret this result as normal/abnormal . [facility] HospitalDwfvyinIQEGCPRBDW2907-15-60 18:46:00 Test Item Value Reference Range Interpretation Comments Segs (test code = Segs) 56.4 45.0-75.0 [facility] HospitalQtaoeomLXYMLMKRKR9403-23-15 18:46:00 Test Item Value Reference Range Interpretation Comments Monocytes (test code = Monocytes) 10.3 2.0-12.0 [facility] HospitalWdazfgwZVUFKEKOCY2979-83-86 18:46:00 Test Item Value Reference Range Interpretation Comments Lymphocytes (test code = Lymphocytes) 28.0 20.0-40.0 [facility] HospitalYeeugbwELKBBZSNYZ1835-43-61 18:46:00 Test Item Value Reference Range Interpretation Comments Monocytes # (test code 0.5 See_Comment [Aut omated message] The = Monocytes #) system which generated this result tra nsmitted reference range : <=0.8. The reference r mitra was not used to int erpret this result as normal/abnormal . [facility] HospitalFfjnkyoQLUEHBOXBQ3458-26-18 18:46:00 Test Item Value Reference Range Interpretation Comments Basophils (test code = 1.1 See_Comment [Aut omated message] The Basophils) system which ge nerated this result tra nsmitted reference range : <=1.0. The reference r mitra was not used to int erpret this result as normal/abnormal . [facility] HospitalFpexlsqDAPOSORYQX9589-16-58 18:46:00 Test Item Value Reference Range Interpretation Comments Lymphocytes # (test code = Lymphocytes 1.5 1.0-5.5 #) [facility] HospitalRhvawapAECXNKSQFI3472-60-28 18:46:00 Test Item Value Reference Range Interpretation Comments Segs-Bands # (test code = Segs-Bands #) 2.9 1.5-8.1 [facility] HospitalDquujqyOXZZMPIVZF0934-23-08 18:46:00 Test Item Value Reference Range Interpretation Comments Eosinophils # (test code 0.2 See_Comment [A utomated message] The = Eosinophils #) system whic h generated this result tra nsmitted reference range : <=0.5. The reference r mtira was not used to int erpret this result as normal/abnormal . [facility] HospitalEdqsbgpHXIEHZQEWB8363-63-52 18:46:00 Test Item Value Reference Range Interpretation Comments Basophils # (test code 0.1 See_Comment [Aut omated message] The = Basophils #) system which generated this result tra nsmitted reference range : <=0.2. The reference r mitra was not used to int erpret this result as normal/abnormal . [facility] HospitalKjjhohdJYHJKSXHWE3760-07-93 18:46:00 Test Item Value Reference Range Interpretation Comments PT (test code = PT) 11.2 s 12.0-14.7 [facility] HospitalFhcdpqkBLAUNRRLIE2917-00-20 18:46:00 Test Item Value Reference Range Interpretation Comments INR (test code = INR) 0.82 0.85-1.17 [facility] HospitalLmzelapNIERFJUAXM3888-70-11 18:46:00 Test Item Value Reference Range Interpretation Comments PTT (test code = PTT) 28.6 s 22.9-35.8 [facility] HospitalGyapvbcCVIUIVTWGA6758-41-30 18:46:00 Test Item Value Reference Range Interpretation Comments MPV (test code = MPV) 8.1 7.4-10.4 [facility] HospitalPbtpbxmODAMNEICPK9462-39-35 18:46:00 Test Item Value Reference Range Interpretation Comments Platelet (test code = Platelet) 301 133-450 [facility]NhxcnicBKQCUDWHSH8294-03-69 18:46:00 Test Item Value Reference Range Interpretation Comments RDW (test code = RDW) 14.5 11.5-14.5 [facility] HospitalSjgmxmmVUQCQYKRMF4280-43-79 18:46:00 Test Item Value Reference Range Interpretation Comments RBC (test code = RBC) 4.84 4.70-6.10 [facility] HospitalZjxokkeOLVXLPZDVU3048-23-19 18:46:00 Test Item Value Reference Range Interpretation Comments Hgb (test code = Hgb) 14.4 14.0-18.0 [facility] HospitalZtxnzbhYXCXBNQRJW9125-62-39 18:46:00 Test Item Value Reference Range Interpretation Comments WBC (test code = WBC) 5.2 3.7-10.4 [facility] HospitalWignkmfCRXJFWOZBF4938-67-42 18:46:00 Test Item Value Reference Range Interpretation Comments MCH (test code = MCH) 29.8 pg 27.0-31.0 [facility] HospitalQcabahiYALPEDRVJZ5418-23-05 18:46:00 Test Item Value Reference Range Interpretation Comments MCV (test code = MCV) 92.0 80.0-94.0 [facility]CuqgdtlDDZCZCXXZP9282-20-57 18:46:00 Test Item Value Reference Range Interpretation Comments Hct (test code = Hct) 44.5 42.0-54.0 [facility] HospitalLnnzvsxSNWAOJMRBG1769-97-38 18:46:00 Test Item Value Reference Range Interpretation Comments MCHC (test code = MCHC) 32.4 32.0-36.0 [facility]AsmkpvwNRHDMLPGHA0317-99-34 18:46:00 Test Item Value Reference Range Interpretation Comments [place]-Hep C Ab (test Negative *NA*(07/22/14 code = [place]-Hep C 1:46 PM) Ab) [facility] [id number] 18:46:00 Test Item Value Reference Range Interpretation Comments UA Urobilinogen (test code = UA <=1.0 mg/dL 0.1-1.0 Urobilinogen) [facility] [id number] 18:46:00 Test Item Value Reference Range Interpretation Comments UA Sq Epi (test code = UA Sq Epi) None Seen [facility] AND [id number] 18:46:00 Test Item Value Reference Range Interpretation Comments UA Leuk Est (test Negative (07/22/14 1:46 code = UA Leuk Est) PM) [facility] AND [id number] 18:46:00 Test Item Value Reference Range Interpretation Comments UA Nitrite (test code Negative (07/22/14 1:46 = UA Nitrite) PM) [facility] AND [id number] 18:46:00 Test Item Value Reference Range Interpretation Comments UA Blood (test code = Negative (07/22/14 1:46 UA Blood) PM) [facility] AND [id number] 18:46:00 Test Item Value Reference Range Interpretation Comments UA Ketones (test code = UA Negative mg/dL Ketones) [facility] AND [id number] 18:46:00 Test Item Value Reference Range Interpretation Comments UA Bili (test code = Negative *NA*(07/22/14 UA Bili) 1:46 PM) [facility] AND [id number] 18:46:00 Test Item Value Reference Range Interpretation Comments UA Bacteria (test code = UA Occasional /HPF Bacteria) [facility] AND [id number] 18:46:00 Test Item Value Reference Range Interpretation Comments UA RBC (test code = no gt See_Comment [Automa elizabeth message] The UA RBC) system which ge nerated this result transmit elizabeth reference range : <=2. The reference range was not used to interpr et this result as lukas l/abnormal. [facility] AND [id number] 18:46:00 Test Item Value Reference Range Interpretation Comments UA WBC (test code = 1 See_Comment [Automa elizabeth message] The UA WBC) system which ge nerated this result transmit elizabeth reference range : <=5. The reference range was not used to interpr et this result as lukas l/abnormal. [facility] AND [id number] 18:46:00 Test Item Value Reference Range Interpretation Comments UA Glucose (test code = UA Glucose) 30 mg/dL [facility] AND [id number] 18:46:00 Test Item Value Reference Range Interpretation Comments UA Protein (test code = UA Negative mg/dL Protein) [facility] AND [id number] 18:46:00 Test Item Value Reference Range Interpretation Comments UA pH (test code = UA pH) 6.5 5.0-8.0 [facility] [id number] 18:46:00 Test Item Value Reference Range Interpretation Comments UA Turbidity (test code = Clear (07/22/14 1:46 UA Turbidity) PM) [facility] [id number] 18:46:00 Test Item Value Reference Range Interpretation Comments UA Spec Grav (test code = UA Spec Grav) 1.010 [facility] AND [id number] 18:46:00 Test Item Value Reference Range Interpretation Comments UA Color (test code = Light Yellow UA Color) *NA*(07/22/14 1:46 PM) [facility] [id number] 18:46:00 Test Item Value Reference Range Interpretation Comments Magnesium Lvl (test code = Magnesium 1.8 1.8-2.4 Lvl) [facility]JepfuniFOFMOXZUKOEO2764-07-04 18:46:00 Test Item Value Reference Range Interpretation Comments AGAP (test code = AGAP) 13.2 10.0-20.0 [facility] SurgeryHykekffASYQQFPLKXAI0856-48-78 18:46:00 Test Item Value Reference Range Interpretation Comments B/C Ratio (test code = B/C Ratio) 18 6-25 [facility] SurgeryZrkouopOIYLIHNMMSTO7802-09-17 18:46:00 Test Item Value Reference Range Interpretation Comments A/G Ratio (test code = A/G Ratio) 1.1 0.7-1.6 [facility] SystemWvdmjcpBDMZVUHKZBDZ3794-70-93 18:46:00 Test Item Value Reference Range Interpretation Comments Globulin (test code = Globulin) 3.3 2.0-4.0 [facility] SurgeryEkbfbnuMALAQOKZXTWT4794-16-70 18:46:00 Test Item Value Reference Range Interpretation Comments eGFR (test code = eGFR) 99 [facility] SurgeryQeykvfjEWMLCLSUAQSY3166-97-30 18:46:00 Test Item Value Reference Range Interpretation Comments Calcium Lvl (test code = Calcium Lvl) 9.0 8.5-10.5 [facility]ApxyolkJAPHTZNIGJSF0265-89-75 18:46:00 Test Item Value Reference Range Interpretation Comments Chloride Lvl (test code = Chloride Lvl) 106 95-109 [facility] SurgeryMxagohnNWIWVKWNXRQE3320-76-99 18:46:00 Test Item Value Reference Range Interpretation Comments Creatinine Lvl (test code = Creatinine 0.9 0.5-1.4 Lvl) [facility] SurgeryTortbkwKHPWYNQRVOHB9890-58-89 18:46:00 Test Item Value Reference Range Interpretation Comments Potassium Lvl (test code = Potassium 4.2 3.5-5.1 Lvl) [facility] SurgeryLajjtonOLERTHPEVTKT7839-18-19 18:46:00 Test Item Value Reference Range Interpretation Comments Sodium Lvl (test code = Sodium Lvl) 139 135-145 [facility] SurgeryBhteuiuEZBBIYOGGCXC0428-28-63 18:46:00 Test Item Value Reference Range Interpretation Comments CO2 (test code = CO2) 24 24-32 [facility] SurgeryWprekhyKPICUCHVVYAN7009-61-65 18:46:00 Test Item Value Reference Range Interpretation Comments BUN (test code = BUN) 16 7-22 [facility] SurgeryRfhpycvDHMJXPUWRMPM1781-98-27 18:46:00 Test Item Value Reference Range Interpretation Comments Glucose Lvl (test code = Glucose Lvl) 141 70-99 [facility] SurgeryLkmntiaJGFKJMUFNNMJ9903-57-66 18:46:00 Test Item Value Reference Range Interpretation Comments Albumin Lvl (test code = Albumin Lvl) 3.6 3.5-5.0 [facility] SurgeryLxmsjyqOJMYYVQZYFMI6115-36-62 18:46:00 Test Item Value Reference Range Interpretation Comments Alk Phos (test code = Alk Phos) 65 39-136 [facility] SurgeryMtmdetbVZKFEFUQMRTX3732-26-40 18:46:00 Test Item Value Reference Range Interpretation Comments Bili Total (test code = Bili Total) 0.3 0.2-1.3 [facility] SurgeryZldawjrZRELTPZISBQI6004-44-30 18:46:00 Test Item Value Reference Range Interpretation Comments ALT (test code = ALT) 100 See_Comment [Auto mated message] The system which ge nerated this result transmit elizabeth reference range : <=65. The reference range was not used to interpr et this result as lukas l/abnormal. [facility] SurgeryDtjngzdNQZFKGXNRSGZ0814-89-82 18:46:00 Test Item Value Reference Range Interpretation Comments AST (test code = AST) 53 See_Comment [Auto mated message] The system which ge nerated this result transmit elizabeth reference range : <=37. The reference range was not used to interpr et this result as lukas l/abnormal. [facility] SurgeryVhpdjrzBEAUXXEALMIS9390-26-34 18:46:00 Test Item Value Reference Range Interpretation Comments Total Protein (test code = Total 6.9 6.4-8.4 Protein) [facility] HospitalUxyxjgaUWVKYOTEEC8514-15-08 18:46:00 Test Item Value Reference Range Interpretation Comments Eosinophils (test code = 4.2 See_Comment [A utomated message] The Eosinophils) system which ge nerated this result tra nsmitted reference range : <=4.0. The reference r mitra was not used to int erpret this result as normal/abnormal . [facility] HospitalSkzblxoKEFCJWRUFV0679-15-07 18:46:00 Test Item Value Reference Range Interpretation Comments Segs (test code = Segs) 56.4 45.0-75.0 [facility] Hospit[id number] 18:46:00 Test Item Value Reference Range Interpretation Comments Monocytes (test code = Monocytes) 10.3 2.0-12.0 [facility] HospitalYuxutcfXRIRXDDBMN2084-04-52 18:46:00 Test Item Value Reference Range Interpretation Comments Lymphocytes (test code = Lymphocytes) 28.0 20.0-40.0 [facility] HospitalAtkjnbdHVODPWTAUO6641-67-53 18:46:00 Test Item Value Reference Range Interpretation Comments Monocytes # (test code 0.5 See_Comment [Aut omated message] The = Monocytes #) system which generated this result tra nsmitted reference range : <=0.8. The reference r mitra was not used to int erpret this result as normal/abnormal . [facility] HospitalVnsphfwDEIXYMJDDQ4977-93-48 18:46:00 Test Item Value Reference Range Interpretation Comments Basophils (test code = 1.1 See_Comment [Aut omated message] The Basophils) system which ge nerated this result tra nsmitted reference range : <=1.0. The reference r mitra was not used to int erpret this result as normal/abnormal . [facility] HospitalLgpwzziJPCGQEHZBA0334-30-17 18:46:00 Test Item Value Reference Range Interpretation Comments Lymphocytes # (test code = Lymphocytes 1.5 1.0-5.5 #) [facility] HospitalTvegtgbQJDHDZYPAN9134-03-71 18:46:00 Test Item Value Reference Range Interpretation Comments Segs-Bands # (test code = Segs-Bands #) 2.9 1.5-8.1 [facility] HospitalEgyhzxfIAYTHQMEXW7962-27-72 18:46:00 Test Item Value Reference Range Interpretation Comments Eosinophils # (test code 0.2 See_Comment [A utomated message] The = Eosinophils #) system whic h generated this result tra nsmitted reference range : <=0.5. The reference r mitra was not used to int erpret this result as normal/abnormal . [facility] HospitalCcwjdspVPESRNBAXC9387-66-06 18:46:00 Test Item Value Reference Range Interpretation Comments Basophils # (test code 0.1 See_Comment [Aut omated message] The = Basophils #) system which generated this result tra nsmitted reference range : <=0.2. The reference r mitra was not used to int erpret this result as normal/abnormal . [facility] HospitalBnsnigkVFBZMHDHYM2862-82-33 18:46:00 Test Item Value Reference Range Interpretation Comments PT (test code = PT) 11.2 s 12.0-14.7 [facility] HospitalSocwiglZHWEGXKPFQ0137-01-01 18:46:00 Test Item Value Reference Range Interpretation Comments INR (test code = INR) 0.82 0.85-1.17 [facility] HospitalYdctrxfNWOJLCKCHJ6873-97-53 18:46:00 Test Item Value Reference Range Interpretation Comments PTT (test code = PTT) 28.6 s 22.9-35.8 [facility] HospitalShzbjyuAUCZXFDYYH6294-54-09 18:46:00 Test Item Value Reference Range Interpretation Comments MPV (test code = MPV) 8.1 7.4-10.4 [facility] HospitalUgzzgkjHULKEZDOIN6118-05-51 18:46:00 Test Item Value Reference Range Interpretation Comments Platelet (test code = Platelet) 301 133-450 [facility] HospitalVizfqdgUOSUXMJRTP4085-74-43 18:46:00 Test Item Value Reference Range Interpretation Comments RDW (test code = RDW) 14.5 11.5-14.5 [facility] HospitalBcailpqYPITNNTJSM3646-66-85 18:46:00 Test Item Value Reference Range Interpretation Comments RBC (test code = RBC) 4.84 4.70-6.10 [facility] HospitalUjyuohkFAMYUOTRNU0414-14-03 18:46:00 Test Item Value Reference Range Interpretation Comments Hgb (test code = Hgb) 14.4 14.0-18.0 [facility] CenterHscgkobIEZRHPOOAB6167-54-57 18:46:00 Test Item Value Reference Range Interpretation Comments WBC (test code = WBC) 5.2 3.7-10.4 [facility] BqavzljAHLVJQFIQD3984-11-47 18:46:00 Test Item Value Reference Range Interpretation Comments MCH (test code = MCH) 29.8 pg 27.0-31.0 [facility] HospitalZincoprOCPQNHZGMH4475-46-71 18:46:00 Test Item Value Reference Range Interpretation Comments MCV (test code = MCV) 92.0 80.0-94.0 [facility] CenterVettztbKSVMDPHCEQ0108-50-25 18:46:00 Test Item Value Reference Range Interpretation Comments Hct (test code = Hct) 44.5 42.0-54.0 [facility] HospitalKhwysprEVRNLWGSUR8734-96-90 18:46:00 Test Item Value Reference Range Interpretation Comments MCHC (test code = MCHC) 32.4 32.0-36.0 [facility] CenterCxgocqiPBAWYVVAEZ1167-87-28 18:46:00 Test Item Value Reference Range Interpretation Comments [place]-Hep C Ab (test Negative *NA*(07/22/14 code = [place]-Hep C 1:46 PM) Ab) [facility] AND [id number] 18:46:00 Test Item Value Reference Range Interpretation Comments UA Urobilinogen (test code = UA <=1.0 mg/dL 0.1-1.0 Urobilinogen) [facility] AND [id number] 18:46:00 Test Item Value Reference Range Interpretation Comments UA Sq Epi (test code = UA Sq Epi) None Seen [facility] AND [id number] 18:46:00 Test Item Value Reference Range Interpretation Comments UA Leuk Est (test Negative (07/22/14 1:46 code = UA Leuk Est) PM) [facility] [id number] 18:46:00 Test Item Value Reference Range Interpretation Comments UA Nitrite (test code Negative (07/22/14 1:46 = UA Nitrite) PM) [facility] AND [id number] 18:46:00 Test Item Value Reference Range Interpretation Comments UA Blood (test code = Negative (07/22/14 1:46 UA Blood) PM) [facility] AND [id number] 18:46:00 Test Item Value Reference Range Interpretation Comments UA Ketones (test code = UA Negative mg/dL Ketones) [facility] AND [id number] 18:46:00 Test Item Value Reference Range Interpretation Comments UA Bili (test code = Negative *NA*(07/22/14 UA Bili) 1:46 PM) [facility] AND [id number] 18:46:00 Test Item Value Reference Range Interpretation Comments UA Bacteria (test code = UA Occasional /HPF Bacteria) [facility] AND [id number] 18:46:00 Test Item Value Reference Range Interpretation Comments UA RBC (test code = no gt See_Comment [Automa elizabeth message] The UA RBC) system which ge nerated this result transmit elizabeth reference range : <=2. The reference range was not used to interpr et this result as lukas l/abnormal. [facility] AND [id number] 18:46:00 Test Item Value Reference Range Interpretation Comments UA WBC (test code = 1 See_Comment [Automa elizabeth message] The UA WBC) system which ge nerated this result transmit elizabeth reference range : <=5. The reference range was not used to interpr et this result as lukas l/abnormal. [facility] AND [id number] 18:46:00 Test Item Value Reference Range Interpretation Comments UA Glucose (test code = UA Glucose) 30 mg/dL [facility] AND [id number] 18:46:00 Test Item Value Reference Range Interpretation Comments UA Protein (test code = UA Negative mg/dL Protein) [facility] AND [id number] 18:46:00 Test Item Value Reference Range Interpretation Comments UA pH (test code = UA pH) 6.5 5.0-8.0 [facility] AND [id number] 18:46:00 Test Item Value Reference Range Interpretation Comments UA Turbidity (test code = Clear (07/22/14 1:46 UA Turbidity) PM) [facility] AND [id number] 18:46:00 Test Item Value Reference Range Interpretation Comments UA Spec Grav (test code = UA Spec Grav) 1.010 [facility] AND [id number] 18:46:00 Test Item Value Reference Range Interpretation Comments UA Color (test code = Light Yellow UA Color) *NA*(07/22/14 1:46 PM) [facility]2015-06-09 18:46:00 Test Item Value Reference Range Interpretation Comments Magnesium Lvl (test code = Magnesium 1.8 1.8-2.4 Lvl) [facility] SurgeryKbehrkkISGNRWEAWKYP0632-86-27 18:46:00 Test Item Value Reference Range Interpretation Comments AGAP (test code = AGAP) 13.2 10.0-20.0 [facility] SurgeryOjxgzdjXXJWDFNPIQKF3869-70-99 18:46:00 Test Item Value Reference Range Interpretation Comments B/C Ratio (test code = B/C Ratio) 18 6-25 [facility] SurgeryTmbktqgGCNMRPYCDNLR2244-02-65 18:46:00 Test Item Value Reference Range Interpretation Comments A/G Ratio (test code = A/G Ratio) 1.1 0.7-1.6 [facility] SurgeryAwgqsezFXOYFFHPCWWJ6023-32-28 18:46:00 Test Item Value Reference Range Interpretation Comments Globulin (test code = Globulin) 3.3 2.0-4.0 [facility] SurgeryCxvlqlvATQAWRXPKWOM0524-49-85 18:46:00 Test Item Value Reference Range Interpretation Comments eGFR (test code = eGFR) 99 [facility] SurgeryWnsykmuHIDDVIQROKNH3785-65-44 18:46:00 Test Item Value Reference Range Interpretation Comments Calcium Lvl (test code = Calcium Lvl) 9.0 8.5-10.5 [facility] SurgeryAujoklhBGXDQBKONPQP4834-66-12 18:46:00 Test Item Value Reference Range Interpretation Comments Chloride Lvl (test code = Chloride Lvl) 106 95-109 [facility] SurgeryHlelryzIEHGSWHTFDFH1235-88-80 18:46:00 Test Item Value Reference Range Interpretation Comments Creatinine Lvl (test code = Creatinine 0.9 0.5-1.4 Lvl) [facility] SurgeryScxomhpXCQWXSBLGNWS6109-83-66 18:46:00 Test Item Value Reference Range Interpretation Comments Potassium Lvl (test code = Potassium 4.2 3.5-5.1 Lvl) [facility] SurgeryBoiqiwsQPSAVLCRGFQJ6914-74-90 18:46:00 Test Item Value Reference Range Interpretation Comments Sodium Lvl (test code = Sodium Lvl) 139 135-145 [facility] SurgeryKqvmvrhQHKPNMPEDFRB2253-11-07 18:46:00 Test Item Value Reference Range Interpretation Comments CO2 (test code = CO2) 24 24-32 [facility] SurgeryWxwkrdwUDMPYCVLQVHS0134-35-45 18:46:00 Test Item Value Reference Range Interpretation Comments BUN (test code = BUN) 16 7-22 [facility] SurgeryErxuvieIGNAMTIZSLLS4583-68-21 18:46:00 Test Item Value Reference Range Interpretation Comments Glucose Lvl (test code = Glucose Lvl) 141 70-99 [facility] SurgeryErdjtcaXGWXVJFCPZLJ4031-58-91 18:46:00 Test Item Value Reference Range Interpretation Comments Albumin Lvl (test code = Albumin Lvl) 3.6 3.5-5.0 [facility] SurgeryBzfznowMORIQWAJZMZX3171-34-75 18:46:00 Test Item Value Reference Range Interpretation Comments Alk Phos (test code = Alk Phos) 65 39-136 [facility] SurgeryYjifqvrVQRGVCHGFAZO5814-15-31 18:46:00 Test Item Value Reference Range Interpretation Comments Bili Total (test code = Bili Total) 0.3 0.2-1.3 [facility] SurgeryIpoqoylTRRNHBCIQSLB4451-55-68 18:46:00 Test Item Value Reference Range Interpretation Comments ALT (test code = ALT) 100 See_Comment [Auto mated message] The system which ge nerated this result transmit elizabeth reference range : <=65. The reference range was not used to interpr et this result as lukas l/abnormal. [facility] SurgeryRyqbuscIICGHTYAXGKS0327-02-22 18:46:00 Test Item Value Reference Range Interpretation Comments AST (test code = AST) 53 See_Comment [Auto mated message] The system which ge nerated this result transmit elizabeth reference range : <=37. The reference range was not used to interpr et this result as lukas l/abnormal. [facility] SurgeryYlfvdomGOVSOZJERZBI1057-26-30 18:46:00 Test Item Value Reference Range Interpretation Comments Total Protein (test code = Total 6.9 6.4-8.4 Protein) [facility] HospitalRgvjjohFUEAYBREBM7828-13-40 18:46:00 Test Item Value Reference Range Interpretation Comments Eosinophils (test code = 4.2 See_Comment [A utomated message] The Eosinophils) system which ge nerated this result tra nsmitted reference range : <=4.0. The reference r mitra was not used to int erpret this result as normal/abnormal . [facility] HospitalNuysnmzHMSMKSTGNB6831-23-91 18:46:00 Test Item Value Reference Range Interpretation Comments Segs (test code = Segs) 56.4 45.0-75.0 [facility] HospitalNbadekwATGOIGLTRS0150-75-82 18:46:00 Test Item Value Reference Range Interpretation Comments Monocytes (test code = Monocytes) 10.3 2.0-12.0 [facility] HospitalLfabinzHSQKFPTWXS1869-08-91 18:46:00 Test Item Value Reference Range Interpretation Comments Lymphocytes (test code = Lymphocytes) 28.0 20.0-40.0 [facility] HospitalZibmhkkZVOZXKIYNN0420-02-04 18:46:00 Test Item Value Reference Range Interpretation Comments Monocytes # (test code 0.5 See_Comment [Aut omated message] The = Monocytes #) system which generated this result tra nsmitted reference range : <=0.8. The reference r mitra was not used to int erpret this result as normal/abnormal . [facility] HospitalViwksfqKPNWUOWSJV3717-17-96 18:46:00 Test Item Value Reference Range Interpretation Comments Basophils (test code = 1.1 See_Comment [Aut omated message] The Basophils) system which ge nerated this result tra nsmitted reference range : <=1.0. The reference r mitra was not used to int erpret this result as normal/abnormal . [facility] HospitalZnipxlrGKKPUHOAYR6979-64-66 18:46:00 Test Item Value Reference Range Interpretation Comments Lymphocytes # (test code = Lymphocytes 1.5 1.0-5.5 #) [facility] HospitalDtdbyzmDDVJCZYIPC2363-99-54 18:46:00 Test Item Value Reference Range Interpretation Comments Segs-Bands # (test code = Segs-Bands #) 2.9 1.5-8.1 [facility] HospitalZcdpwoeSWVBJKPHOV4711-87-80 18:46:00 Test Item Value Reference Range Interpretation Comments Eosinophils # (test code 0.2 See_Comment [A utomated message] The = Eosinophils #) system whic h generated this result tra nsmitted reference range : <=0.5. The reference r mitra was not used to int erpret this result as normal/abnormal . [facility] HospitalAsldjplKQXXFOKFQM5244-75-07 18:46:00 Test Item Value Reference Range Interpretation Comments Basophils # (test code 0.1 See_Comment [Aut omated message] The = Basophils #) system which generated this result tra nsmitted reference range : <=0.2. The reference r mitra was not used to int erpret this result as normal/abnormal . [facility] HospitalTflfpilMMGCQCIBHA9979-79-24 18:46:00 Test Item Value Reference Range Interpretation Comments PT (test code = PT) 11.2 s 12.0-14.7 [facility] HospitalXncfmprYXRHSKGWCC4895-70-02 18:46:00 Test Item Value Reference Range Interpretation Comments INR (test code = INR) 0.82 0.85-1.17 [facility] HospitalYqnljrzBEIMGECTBK5243-44-22 18:46:00 Test Item Value Reference Range Interpretation Comments PTT (test code = PTT) 28.6 s 22.9-35.8 [facility] HospitalJugtukvEYHZAWJOYG7560-55-36 18:46:00 Test Item Value Reference Range Interpretation Comments MPV (test code = MPV) 8.1 7.4-10.4 [facility] HospitalTtlzrphYYKDSZVIOO9202-79-98 18:46:00 Test Item Value Reference Range Interpretation Comments Platelet (test code = Platelet) 301 133-450 [facility] HospitalXwcwyzvGTLJEYGGFQ8385-26-57 18:46:00 Test Item Value Reference Range Interpretation Comments RDW (test code = RDW) 14.5 11.5-14.5 [facility] HospitalLcuwjsvSTXSEERHCX2421-43-04 18:46:00 Test Item Value Reference Range Interpretation Comments RBC (test code = RBC) 4.84 4.70-6.10 [facility] HospitalTlzgcfpPOAMXPSHBX6306-41-22 18:46:00 Test Item Value Reference Range Interpretation Comments Hgb (test code = Hgb) 14.4 14.0-18.0 [facility] Hospit[id number] 18:46:00 Test Item Value Reference Range Interpretation Comments WBC (test code = WBC) 5.2 3.7-10.4 [facility] HospitalZwqxfuvJMJODLDGTB6693-18-32 18:46:00 Test Item Value Reference Range Interpretation Comments MCH (test code = MCH) 29.8 pg 27.0-31.0 [facility] HospitalLagjkgxMJUBDZUDGG5705-27-28 18:46:00 Test Item Value Reference Range Interpretation Comments MCV (test code = MCV) 92.0 80.0-94.0 [facility] HospitalTmyittlTWYNNQDXKQ5573-13-47 18:46:00 Test Item Value Reference Range Interpretation Comments Hct (test code = Hct) 44.5 42.0-54.0 [facility]rtgeIOWSLCBSPW6330-58-17 18:46:00 Test Item Value Reference Range Interpretation Comments MCHC (test code = MCHC) 32.4 32.0-36.0 [facility]VaeqaqrLLIJZSUBVZ9454-24-58 18:46:00 Test Item Value Reference Range Interpretation Comments [place]-Hep C Ab (test Negative *NA*(07/22/14 code = [place]-Hep C 1:46 PM) Ab) [facility] AND [id number] 18:46:00 Test Item Value Reference Range Interpretation Comments UA Urobilinogen (test code = UA <=1.0 mg/dL 0.1-1.0 Urobilinogen) [facility] AND [id number] 18:46:00 Test Item Value Reference Range Interpretation Comments UA Sq Epi (test code = UA Sq Epi) None Seen [facility] AND [id number] 18:46:00 Test Item Value Reference Range Interpretation Comments UA Leuk Est (test Negative (07/22/14 1:46 code = UA Leuk Est) PM) [facility] AND [id number] 18:46:00 Test Item Value Reference Range Interpretation Comments UA Nitrite (test code Negative (07/22/14 1:46 = UA Nitrite) PM) [facility] AND [id number] 18:46:00 Test Item Value Reference Range Interpretation Comments UA Blood (test code = Negative (07/22/14 1:46 UA Blood) PM) [facility] AND [id number] 18:46:00 Test Item Value Reference Range Interpretation Comments UA Ketones (test code = UA Negative mg/dL Ketones) [facility] AND [id number] 18:46:00 Test Item Value Reference Range Interpretation Comments UA Bili (test code = Negative *NA*(07/22/14 UA Bili) 1:46 PM) [facility] AND [id number] 18:46:00 Test Item Value Reference Range Interpretation Comments UA Bacteria (test code = UA Occasional /HPF Bacteria) [facility] AND [id number] 18:46:00 Test Item Value Reference Range Interpretation Comments UA RBC (test code = no gt See_Comment [Automa elizabeth message] The UA RBC) system which ge nerated this result transmit elizabeth reference range : <=2. The reference range was not used to interpr et this result as lukas l/abnormal. [facility] [id number] 18:46:00 Test Item Value Reference Range Interpretation Comments UA WBC (test code = 1 See_Comment [Automa elizabeth message] The UA WBC) system which ge nerated this result transmit elizabeth reference range : <=5. The reference range was not used to interpr et this result as lukas l/abnormal. [facility] AND [id number] 18:46:00 Test Item Value Reference Range Interpretation Comments UA Glucose (test code = UA Glucose) 30 mg/dL [facility] AND [id number] 18:46:00 Test Item Value Reference Range Interpretation Comments UA Protein (test code = UA Negative mg/dL Protein) [facility] AND [id number] 18:46:00 Test Item Value Reference Range Interpretation Comments UA pH (test code = UA pH) 6.5 5.0-8.0 [facility] AND [id number] 18:46:00 Test Item Value Reference Range Interpretation Comments UA Turbidity (test code = Clear (07/22/14 1:46 UA Turbidity) PM) [facility] AND [id number] 18:46:00 Test Item Value Reference Range Interpretation Comments UA Spec Grav (test code = UA Spec Grav) 1.010 [facility] AND [id number] 18:46:00 Test Item Value Reference Range Interpretation Comments UA Color (test code = Light Yellow UA Color) *NA*(07/22/14 1:46 PM) [facility]CHE[facility] [id number] 18:46:00 Test Item Value Reference Range Interpretation Comments Magnesium Lvl (test code = Magnesium 1.8 1.8-2.4 Lvl) [facility]BzmznfoNQDZIDDJCTUJ6182-03-95 18:46:00 Test Item Value Reference Range Interpretation Comments AGAP (test code = AGAP) 13.2 10.0-20.0 [facility]ivvgraXSUCQXNIXASS4830-76-33 18:46:00 Test Item Value Reference Range Interpretation Comments B/C Ratio (test code = B/C Ratio) 18 6-25 [facility] SurgeryLlcaodgYACALCZJBATX3886-52-19 18:46:00 Test Item Value Reference Range Interpretation Comments A/G Ratio (test code = A/G Ratio) 1.1 0.7-1.6 [facility] SurgeryVamrsiaNZPBXNSFPZDR8103-21-35 18:46:00 Test Item Value Reference Range Interpretation Comments Globulin (test code = Globulin) 3.3 2.0-4.0 [facility] SurgeryCzhbvuoGFNFBJTEVDDX0381-11-40 18:46:00 Test Item Value Reference Range Interpretation Comments eGFR (test code = eGFR) 99 [facility] SurgeryTyrtvwxOHMFHAEBJJPZ6170-43-57 18:46:00 Test Item Value Reference Range Interpretation Comments Calcium Lvl (test code = Calcium Lvl) 9.0 8.5-10.5 [facility] SurgeryJlmulbkDCCWIQSVNHVZ1388-82-74 18:46:00 Test Item Value Reference Range Interpretation Comments Chloride Lvl (test code = Chloride Lvl) 106 95-109 [facility] SurgeryHkrpkqmXBIPICUTJVGH0547-82-76 18:46:00 Test Item Value Reference Range Interpretation Comments Creatinine Lvl (test code = Creatinine 0.9 0.5-1.4 Lvl) [facility] SurgeryKbqtergKMLAEPXZYBHT7020-84-65 18:46:00 Test Item Value Reference Range Interpretation Comments Potassium Lvl (test code = Potassium 4.2 3.5-5.1 Lvl) [facility] SurgeryLwqgwxtMJEAZSBPZNDG9330-09-18 18:46:00 Test Item Value Reference Range Interpretation Comments Sodium Lvl (test code = Sodium Lvl) 139 135-145 [facility] SurgeryVwrqkziFGYHIJXVYRIA2644-59-09 18:46:00 Test Item Value Reference Range Interpretation Comments CO2 (test code = CO2) 24 24-32 [facility] SurgeryXfywqpkLMMWALZVYAGM4402-71-72 18:46:00 Test Item Value Reference Range Interpretation Comments BUN (test code = BUN) 16 7-22 [facility] SurgeryZazzgsjEHCTDIREGNXZ7990-56-71 18:46:00 Test Item Value Reference Range Interpretation Comments Glucose Lvl (test code = Glucose Lvl) 141 70-99 [facility] SurgeryGdqzpjnNNUBSQNZLFGU9725-20-02 18:46:00 Test Item Value Reference Range Interpretation Comments Albumin Lvl (test code = Albumin Lvl) 3.6 3.5-5.0 [facility] SurgeryJqifkxjARXINIJCDMAQ1112-26-20 18:46:00 Test Item Value Reference Range Interpretation Comments Alk Phos (test code = Alk Phos) 65 39-136 [facility] SurgeryBudsrbtHUHKNSNEJSAN8717-65-50 18:46:00 Test Item Value Reference Range Interpretation Comments Bili Total (test code = Bili Total) 0.3 0.2-1.3 [facility] SurgeryOxuyqnkJNFZMSYAWFDY0710-94-60 18:46:00 Test Item Value Reference Range Interpretation Comments ALT (test code = ALT) 100 See_Comment [Auto mated message] The system which ge nerated this result transmit elizabeth reference range : <=65. The reference range was not used to interpr et this result as lukas l/abnormal. [facility] SurgeryXsulmygTLCBPBDNQYIJ7053-67-50 18:46:00 Test Item Value Reference Range Interpretation Comments AST (test code = AST) 53 See_Comment [Auto mated message] The system which ge nerated this result transmit elizabeth reference range : <=37. The reference range was not used to interpr et this result as lukas l/abnormal. [facility] SurgeryDngrdfjRKLTLWVFRKYY5983-62-87 18:46:00 Test Item Value Reference Range Interpretation Comments Total Protein (test code = Total 6.9 6.4-8.4 Protein) [facility] HospitalCttnsduRRSCKLBZMP4338-90-34 18:46:00 Test Item Value Reference Range Interpretation Comments Eosinophils (test code = 4.2 See_Comment [A utomated message] The Eosinophils) system which ge nerated this result tra nsmitted reference range : <=4.0. The reference r mitra was not used to int erpret this result as normal/abnormal . [facility] HospitalJfkdjfgTWQBLHLQVM0519-89-91 18:46:00 Test Item Value Reference Range Interpretation Comments Segs (test code = Segs) 56.4 45.0-75.0 [facility] HospitalUhubfduOVQYCSKLNN3916-56-52 18:46:00 Test Item Value Reference Range Interpretation Comments Monocytes (test code = Monocytes) 10.3 2.0-12.0 [facility] HospitalNbmrroeUQXRXZTOMJ0224-86-70 18:46:00 Test Item Value Reference Range Interpretation Comments Lymphocytes (test code = Lymphocytes) 28.0 20.0-40.0 [facility] HospitalVkxjzylQHHEGXYQSS7406-68-07 18:46:00 Test Item Value Reference Range Interpretation Comments Monocytes # (test code 0.5 See_Comment [Aut omated message] The = Monocytes #) system which generated this result tra nsmitted reference range : <=0.8. The reference r mitra was not used to int erpret this result as normal/abnormal . [facility] HospitalOcsuoamMNIENVJAGQ0958-06-81 18:46:00 Test Item Value Reference Range Interpretation Comments Basophils (test code = 1.1 See_Comment [Aut omated message] The Basophils) system which ge nerated this result tra nsmitted reference range : <=1.0. The reference r mitra was not used to int erpret this result as normal/abnormal . [facility] HospitalQatdeshRGLJNBZQGD5016-82-69 18:46:00 Test Item Value Reference Range Interpretation Comments Lymphocytes # (test code = Lymphocytes 1.5 1.0-5.5 #) [facility] HospitalZoqnuylLOVQMHXEUL4829-40-94 18:46:00 Test Item Value Reference Range Interpretation Comments Segs-Bands # (test code = Segs-Bands #) 2.9 1.5-8.1 [facility] HospitalVokwnpxMZVEXSMOCZ7204-19-66 18:46:00 Test Item Value Reference Range Interpretation Comments Eosinophils # (test code 0.2 See_Comment [A utomated message] The = Eosinophils #) system whic h generated this result tra nsmitted reference range : <=0.5. The reference r mitra was not used to int erpret this result as normal/abnormal . [facility] Hospit[id number] 18:46:00 Test Item Value Reference Range Interpretation Comments Basophils # (test code 0.1 See_Comment [Aut omated message] The = Basophils #) system which generated this result tra nsmitted reference range : <=0.2. The reference r mitra was not used to int erpret this result as normal/abnormal . [facility] HospitalPoltilvBMBLUZLZFR1108-08-80 18:46:00 Test Item Value Reference Range Interpretation Comments PT (test code = PT) 11.2 s 12.0-14.7 [facility] HospitalBubdlxgQTJLAUNNPL2173-07-58 18:46:00 Test Item Value Reference Range Interpretation Comments INR (test code = INR) 0.82 0.85-1.17 [facility] HospitalSqpavzsZEZTUOXXNL7806-67-58 18:46:00 Test Item Value Reference Range Interpretation Comments PTT (test code = PTT) 28.6 s 22.9-35.8 [facility]GuavhefDDYXWOWHKV3927-29-92 18:46:00 Test Item Value Reference Range Interpretation Comments MPV (test code = MPV) 8.1 7.4-10.4 [facility] HospitalVonuhzvUWGFTUEDYP6689-78-54 18:46:00 Test Item Value Reference Range Interpretation Comments Platelet (test code = Platelet) 301 133-450 [facility] HospitalUqimoiwSJFCBZMJDB6841-11-23 18:46:00 Test Item Value Reference Range Interpretation Comments RDW (test code = RDW) 14.5 11.5-14.5 [facility] HospitalHevnxdpYHXQEREFLU4775-00-21 18:46:00 Test Item Value Reference Range Interpretation Comments RBC (test code = RBC) 4.84 4.70-6.10 [facility] HospitalEnvkuqaFYEHEXRCOR5632-36-63 18:46:00 Test Item Value Reference Range Interpretation Comments Hgb (test code = Hgb) 14.4 14.0-18.0 [facility] HospitalQqqwcxySMFOESCMKO8260-48-30 18:46:00 Test Item Value Reference Range Interpretation Comments WBC (test code = WBC) 5.2 3.7-10.4 [facility] HospitalZrhwuysTADWIPRQOI5396-03-74 18:46:00 Test Item Value Reference Range Interpretation Comments MCH (test code = MCH) 29.8 pg 27.0-31.0 [facility] HospitalXcqyuisNRWUVXDAMM1971-76-21 18:46:00 Test Item Value Reference Range Interpretation Comments MCV (test code = MCV) 92.0 80.0-94.0 [facility] HospitalIpsihfzDQAODWRXDJ9376-57-41 18:46:00 Test Item Value Reference Range Interpretation Comments Hct (test code = Hct) 44.5 42.0-54.0 [facility] HospitalDnmtyzpSAOYQEQUTL4508-59-31 18:46:00 Test Item Value Reference Range Interpretation Comments MCHC (test code = MCHC) 32.4 32.0-36.0 [facility] CenterPazmruwDJFTCPKZZA9506-11-26 18:46:00 Test Item Value Reference Range Interpretation Comments [place]-Hep C Ab (test Negative *NA*(07/22/14 code = [place]-Hep C 1:46 PM) Ab) [facility] AND [id number] 18:46:00 Test Item Value Reference Range Interpretation Comments UA Urobilinogen (test code = UA <=1.0 mg/dL 0.1-1.0 Urobilinogen) [facility] AND [id number] 18:46:00 Test Item Value Reference Range Interpretation Comments UA Sq Epi (test code = UA Sq Epi) None Seen [facility] AND [id number] 18:46:00 Test Item Value Reference Range Interpretation Comments UA Leuk Est (test Negative (07/22/14 1:46 code = UA Leuk Est) PM) [facility] AND [id number] 18:46:00 Test Item Value Reference Range Interpretation Comments UA Nitrite (test code Negative (07/22/14 1:46 = UA Nitrite) PM) [facility] AND [id number] 18:46:00 Test Item Value Reference Range Interpretation Comments UA Blood (test code = Negative (07/22/14 1:46 UA Blood) PM) [facility] AND [id number] 18:46:00 Test Item Value Reference Range Interpretation Comments UA Ketones (test code = UA Negative mg/dL Ketones) [facility] AND [id number] 18:46:00 Test Item Value Reference Range Interpretation Comments UA Bili (test code = Negative *NA*(07/22/14 UA Bili) 1:46 PM) [facility] AND [id number] 18:46:00 Test Item Value Reference Range Interpretation Comments UA Bacteria (test code = UA Occasional /HPF Bacteria) [facility] AND [id number] 18:46:00 Test Item Value Reference Range Interpretation Comments UA RBC (test code = no gt See_Comment [Automa elizabeth message] The UA RBC) system which ge nerated this result transmit elizabeth reference range : <=2. The reference range was not used to interpr et this result as lukas l/abnormal. [facility] AND [id number] 18:46:00 Test Item Value Reference Range Interpretation Comments UA WBC (test code = 1 See_Comment [Automa elizabeth message] The UA WBC) system which ge nerated this result transmit elizabeth reference range : <=5. The reference range was not used to interpr et this result as lukas l/abnormal. [facility] AND [id number] 18:46:00 Test Item Value Reference Range Interpretation Comments UA Glucose (test code = UA Glucose) 30 mg/dL [facility] AND [id number] 18:46:00 Test Item Value Reference Range Interpretation Comments UA Protein (test code = UA Negative mg/dL Protein) [facility] AND [id number] 18:46:00 Test Item Value Reference Range Interpretation Comments UA pH (test code = UA pH) 6.5 5.0-8.0 [facility] AND [id number] 18:46:00 Test Item Value Reference Range Interpretation Comments UA Turbidity (test code = Clear (07/22/14 1:46 UA Turbidity) PM) [facility] AND [id number] 18:46:00 Test Item Value Reference Range Interpretation Comments UA Spec Grav (test code = UA Spec Grav) 1.010 [facility] AND [id number] 18:46:00 Test Item Value Reference Range Interpretation Comments UA Color (test code = Light Yellow UA Color) *NA*(07/22/14 1:46 PM) [facility] [id number] 18:46:00 Test Item Value Reference Range Interpretation Comments Magnesium Lvl (test code = Magnesium 1.8 1.8-2.4 Lvl) [facility] SurgeryIsilteoGDGAZJPVCJLL1445-00-03 18:46:00 Test Item Value Reference Range Interpretation Comments AGAP (test code = AGAP) 13.2 10.0-20.0 [facility] SurgeryKcbjtivZRCLCKRUOFYG7247-01-32 18:46:00 Test Item Value Reference Range Interpretation Comments B/C Ratio (test code = B/C Ratio) 18 6-25 [facility] SurgeryEzzsejaFAZPUFNGANNV4659-90-80 18:46:00 Test Item Value Reference Range Interpretation Comments A/G Ratio (test code = A/G Ratio) 1.1 0.7-1.6 [facility] SurgeryAfoqvsoVJYDLHVNWGYB5511-03-94 18:46:00 Test Item Value Reference Range Interpretation Comments Globulin (test code = Globulin) 3.3 2.0-4.0 [facility] SurgeryEiudpmqEFAYWZLYBZJE8949-06-85 18:46:00 Test Item Value Reference Range Interpretation Comments eGFR (test code = eGFR) 99 [facility] SurgeryZxxukxeBVYPQZDTXXBZ1885-70-24 18:46:00 Test Item Value Reference Range Interpretation Comments Calcium Lvl (test code = Calcium Lvl) 9.0 8.5-10.5 [facility] SurgeryXgqkdsgLPZKARMCDTFS4495-58-67 18:46:00 Test Item Value Reference Range Interpretation Comments Chloride Lvl (test code = Chloride Lvl) 106 95-109 [facility] SurgeryTwywbabBVCCPMGDRKCB0839-29-47 18:46:00 Test Item Value Reference Range Interpretation Comments Creatinine Lvl (test code = Creatinine 0.9 0.5-1.4 Lvl) [facility] SurgeryJyfowjhVFQBTOSIUDVB9189-47-73 18:46:00 Test Item Value Reference Range Interpretation Comments Potassium Lvl (test code = Potassium 4.2 3.5-5.1 Lvl) [facility] SurgeryZkpviomXTDWLPVOKLGB5853-27-12 18:46:00 Test Item Value Reference Range Interpretation Comments Sodium Lvl (test code = Sodium Lvl) 139 135-145 [facility] SurgerySznegngIWIKDFLNVYOQ2333-54-32 18:46:00 Test Item Value Reference Range Interpretation Comments CO2 (test code = CO2) 24 24-32 [facility] SurgeryGzyegqrZOYAPCGKDYEW7823-35-36 18:46:00 Test Item Value Reference Range Interpretation Comments BUN (test code = BUN) 16 7-22 [facility] SurgeryKvdrquqQVNIBCXQNEZW5487-97-51 18:46:00 Test Item Value Reference Range Interpretation Comments Glucose Lvl (test code = Glucose Lvl) 141 70-99 [facility] SurgeryBeckwcuBBQNHBMWCUEX4001-47-79 18:46:00 Test Item Value Reference Range Interpretation Comments Albumin Lvl (test code = Albumin Lvl) 3.6 3.5-5.0 [facility] SurgeryCfhmsdhGFTHYHTRMOKO4287-10-38 18:46:00 Test Item Value Reference Range Interpretation Comments Alk Phos (test code = Alk Phos) 65 39-136 [facility] SurgeryMujwjzaOJYXSOFAHIDG0040-64-70 18:46:00 Test Item Value Reference Range Interpretation Comments Bili Total (test code = Bili Total) 0.3 0.2-1.3 [facility] SurgeryNkbieldNPCRIEXAWUGT3380-23-34 18:46:00 Test Item Value Reference Range Interpretation Comments ALT (test code = ALT) 100 See_Comment [Auto mated message] The system which ge nerated this result transmit elizabeth reference range : <=65. The reference range was not used to interpr et this result as lukas l/abnormal. [facility] SurgeryJkniznsIVJMCYDBFRJZ2836-69-25 18:46:00 Test Item Value Reference Range Interpretation Comments AST (test code = AST) 53 See_Comment [Auto mated message] The system which ge nerated this result transmit elizabeth reference range : <=37. The reference range was not used to interpr et this result as lukas l/abnormal. [facility] SurgeryAyumuoeYTTOTVWCKHMS5666-21-50 18:46:00 Test Item Value Reference Range Interpretation Comments Total Protein (test code = Total 6.9 6.4-8.4 Protein) [facility] HospitalVffyyrmDUCHQGPKDO5818-04-11 18:46:00 Test Item Value Reference Range Interpretation Comments Eosinophils (test code = 4.2 See_Comment [A utomated message] The Eosinophils) system which ge nerated this result tra nsmitted reference range : <=4.0. The reference r mitra was not used to int erpret this result as normal/abnormal . [facility] HospitalXsshanuAXSXQOGJNJ9521-44-81 18:46:00 Test Item Value Reference Range Interpretation Comments Segs (test code = Segs) 56.4 45.0-75.0 [facility] HospitalCsqhfioORPEBNNUCF7920-48-86 18:46:00 Test Item Value Reference Range Interpretation Comments Monocytes (test code = Monocytes) 10.3 2.0-12.0 [facility] HospitalFlhkqvhVJVLKTLOJT1999-06-30 18:46:00 Test Item Value Reference Range Interpretation Comments Lymphocytes (test code = Lymphocytes) 28.0 20.0-40.0 [facility] HospitalXfpvhzdIHMBJAXTXF3000-46-09 18:46:00 Test Item Value Reference Range Interpretation Comments Monocytes # (test code 0.5 See_Comment [Aut omated message] The = Monocytes #) system which generated this result tra nsmitted reference range : <=0.8. The reference r mitra was not used to int erpret this result as normal/abnormal . [facility] HospitalSwamrlqOWCYBTXSPZ8602-14-30 18:46:00 Test Item Value Reference Range Interpretation Comments Basophils (test code = 1.1 See_Comment [Aut omated message] The Basophils) system which ge nerated this result tra nsmitted reference range : <=1.0. The reference r mitra was not used to int erpret this result as normal/abnormal . [place] [id number] 18:46:00 Test Item Value Reference Range Interpretation Comments Lymphocytes # (test code = Lymphocytes 1.5 1.0-5.5 #) [facility] HospitalKdcdrjyULHPEXNVAH7900-71-10 18:46:00 Test Item Value Reference Range Interpretation Comments Segs-Bands # (test code = Segs-Bands #) 2.9 1.5-8.1 [facility] HospitalTvohpkfXGYWQXWIOP0415-05-66 18:46:00 Test Item Value Reference Range Interpretation Comments Eosinophils # (test code 0.2 See_Comment [A utomated message] The = Eosinophils #) system whic h generated this result tra nsmitted reference range : <=0.5. The reference r mitra was not used to int erpret this result as normal/abnormal . [facility] HospitalYjzjvmyANMMPSBGIC7298-92-20 18:46:00 Test Item Value Reference Range Interpretation Comments Basophils # (test code 0.1 See_Comment [Aut omated message] The = Basophils #) system which generated this result tra nsmitted reference range : <=0.2. The reference r mitra was not used to int erpret this result as normal/abnormal . [facility] HospitalWxnbxcxINTMWFIAEU9581-74-89 18:46:00 Test Item Value Reference Range Interpretation Comments PT (test code = PT) 11.2 s 12.0-14.7 [facility] HospitalAfailulGQFOUCZSKY5819-41-54 18:46:00 Test Item Value Reference Range Interpretation Comments INR (test code = INR) 0.82 0.85-1.17 [facility] HospitalKhtiktjJSJJQYWYWF3310-35-09 18:46:00 Test Item Value Reference Range Interpretation Comments PTT (test code = PTT) 28.6 s 22.9-35.8 [facility] HospitalSgeoqttDRNDOHPEAX0840-97-63 18:46:00 Test Item Value Reference Range Interpretation Comments MPV (test code = MPV) 8.1 7.4-10.4 [facility] HospitalNlribtwVIUKBSKIYJ6563-29-95 18:46:00 Test Item Value Reference Range Interpretation Comments Platelet (test code = Platelet) 301 133-450 [facility] HospitalLhwnxmcMDZENFEMAI5721-82-20 18:46:00 Test Item Value Reference Range Interpretation Comments RDW (test code = RDW) 14.5 11.5-14.5 [facility] HospitalMfhghjcUYWUHTAKLB8811-02-76 18:46:00 Test Item Value Reference Range Interpretation Comments RBC (test code = RBC) 4.84 4.70-6.10 [facility] HospitalHwfivurLXRVMSHURL0148-37-71 18:46:00 Test Item Value Reference Range Interpretation Comments Hgb (test code = Hgb) 14.4 14.0-18.0 [facility] Hos[id number] 18:46:00 Test Item Value Reference Range Interpretation Comments WBC (test code = WBC) 5.2 3.7-10.4 [facility] HospitalCjifdzhDVFZTSEXPC2586-45-41 18:46:00 Test Item Value Reference Range Interpretation Comments MCH (test code = MCH) 29.8 pg 27.0-31.0 [facility] HospitalUkhpjmuICULOJUAMU7264-09-42 18:46:00 Test Item Value Reference Range Interpretation Comments MCV (test code = MCV) 92.0 80.0-94.0 [facility] HospitalCbaqjjbEVSHTXHUCM7329-87-88 18:46:00 Test Item Value Reference Range Interpretation Comments Hct (test code = Hct) 44.5 42.0-54.0 [facility] HospitalBldfmibMKHNRBPEFM9727-25-41 18:46:00 Test Item Value Reference Range Interpretation Comments MCHC (test code = MCHC) 32.4 32.0-36.0 [facility]VkzczytAIQMTOETSH2532-90-56 18:46:00 Test Item Value Reference Range Interpretation Comments [place]-Hep C Ab (test Negative *NA*(07/22/14 code = [place]-Hep C 1:46 PM) Ab) [facility] AND [id number] 18:46:00 Test Item Value Reference Range Interpretation Comments UA Urobilinogen (test code = UA <=1.0 mg/dL 0.1-1.0 Urobilinogen) [facility] AND [id number] 18:46:00 Test Item Value Reference Range Interpretation Comments UA Sq Epi (test code = UA Sq Epi) None Seen [facility] AND [id number] 18:46:00 Test Item Value Reference Range Interpretation Comments UA Leuk Est (test Negative (07/22/14 1:46 code = UA Leuk Est) PM) [facility] AND [id number] 18:46:00 Test Item Value Reference Range Interpretation Comments UA Nitrite (test code Negative (07/22/14 1:46 = UA Nitrite) PM) [facility] AND [id number] 18:46:00 Test Item Value Reference Range Interpretation Comments UA Blood (test code = Negative (07/22/14 1:46 UA Blood) PM) [facility] AND [id number] 18:46:00 Test Item Value Reference Range Interpretation Comments UA Ketones (test code = UA Negative mg/dL Ketones) [facility] AND [id number] 18:46:00 Test Item Value Reference Range Interpretation Comments UA Bili (test code = Negative *NA*(07/22/14 UA Bili) 1:46 PM) [facility] AND [id number] 18:46:00 Test Item Value Reference Range Interpretation Comments UA Bacteria (test code = UA Occasional /HPF Bacteria) [facility] AND [id number] 18:46:00 Test Item Value Reference Range Interpretation Comments UA RBC (test code = no gt See_Comment [Automa elizabeth message] The UA RBC) system which ge nerated this result transmit elizabeth reference range : <=2. The reference range was not used to interpr et this result as lukas l/abnormal. [facility] AND [id number] 18:46:00 Test Item Value Reference Range Interpretation Comments UA WBC (test code = 1 See_Comment [Automa elizabeth message] The UA WBC) system which ge nerated this result transmit elizabeth reference range : <=5. The reference range was not used to interpr et this result as lukas l/abnormal. [facility] AND [id number] 18:46:00 Test Item Value Reference Range Interpretation Comments UA Glucose (test code = UA Glucose) 30 mg/dL [facility] AND [id number] 18:46:00 Test Item Value Reference Range Interpretation Comments UA Protein (test code = UA Negative mg/dL Protein) [facility] AND [id number] 18:46:00 Test Item Value Reference Range Interpretation Comments UA pH (test code = UA pH) 6.5 5.0-8.0 [facility] AND [id number] 18:46:00 Test Item Value Reference Range Interpretation Comments UA Turbidity (test code = Clear (07/22/14 1:46 UA Turbidity) PM) [facility] [id number] 18:46:00 Test Item Value Reference Range Interpretation Comments UA Spec Grav (test code = UA Spec Grav) 1.010 [facility] AND [id number] 18:46:00 Test Item Value Reference Range Interpretation Comments UA Color (test code = Light Yellow UA Color) *NA*(07/22/14 1:46 PM) [facility] CrissannCHEM [id number] 18:46:00 Test Item Value Reference Range Interpretation Comments Magnesium Lvl (test code = Magnesium 1.8 1.8-2.4 Lvl) [facility]WupfjmoZILJPZAIAJEM2889-10-82 18:46:00 Test Item Value Reference Range Interpretation Comments AGAP (test code = AGAP) 13.2 10.0-20.0 [facility] SurgeryOxekbohZROCEJHFZZLJ7736-41-32 18:46:00 Test Item Value Reference Range Interpretation Comments B/C Ratio (test code = B/C Ratio) 18 6-25 [facility] SurgeryQntcjbjNJUAWQZMMZKB2177-18-20 18:46:00 Test Item Value Reference Range Interpretation Comments A/G Ratio (test code = A/G Ratio) 1.1 0.7-1.6 [facility] SurgeryMjccbqgSBEMPPEWUSRW5782-69-40 18:46:00 Test Item Value Reference Range Interpretation Comments Globulin (test code = Globulin) 3.3 2.0-4.0 [facility] SurgeryQnpwtxgXUCUVOESKCHW3250-64-55 18:46:00 Test Item Value Reference Range Interpretation Comments eGFR (test code = eGFR) 99 [facility] SurgeryRpepcnlTCDKJQVKKMZL0250-78-03 18:46:00 Test Item Value Reference Range Interpretation Comments Calcium Lvl (test code = Calcium Lvl) 9.0 8.5-10.5 [facility] SurgeryQbwrqevAQPFZLCJHTFI0647-84-45 18:46:00 Test Item Value Reference Range Interpretation Comments Chloride Lvl (test code = Chloride Lvl) 106 95-109 [facility] SurgeryCuehlgkONZRZYIUINLC4130-25-66 18:46:00 Test Item Value Reference Range Interpretation Comments Creatinine Lvl (test code = Creatinine 0.9 0.5-1.4 Lvl) [facility] SurgeryMjrwtzwXZPGQTCQUPWN5561-91-57 18:46:00 Test Item Value Reference Range Interpretation Comments Potassium Lvl (test code = Potassium 4.2 3.5-5.1 Lvl) [facility] SurgeryTxobhknUQBPYAGOASGS8688-85-51 18:46:00 Test Item Value Reference Range Interpretation Comments Sodium Lvl (test code = Sodium Lvl) 139 135-145 [facility] SurgeryYwgpkauXCPKPDBUZFIG1004-10-58 18:46:00 Test Item Value Reference Range Interpretation Comments CO2 (test code = CO2) 24 24-32 [facility] SurgeryAfbgkvePZWYLTCKPODG0617-99-04 18:46:00 Test Item Value Reference Range Interpretation Comments BUN (test code = BUN) 16 7-22 [facility] SurgeryNlgvgmzDFOVNNGPWUOA3482-69-94 18:46:00 Test Item Value Reference Range Interpretation Comments Glucose Lvl (test code = Glucose Lvl) 141 70-99 [facility] SurgeryHlvlxriSUYKLVZRXBSH9361-94-39 18:46:00 Test Item Value Reference Range Interpretation Comments Albumin Lvl (test code = Albumin Lvl) 3.6 3.5-5.0 [facility] SurgeryZpbnpklGDUQOOACQTZL1559-24-74 18:46:00 Test Item Value Reference Range Interpretation Comments Alk Phos (test code = Alk Phos) 65 39-136 [facility] SurgeryVvbuuhlLMOJJYGADEYH4574-17-10 18:46:00 Test Item Value Reference Range Interpretation Comments Bili Total (test code = Bili Total) 0.3 0.2-1.3 [facility] SurgeryEdykylnKDTBDETELAZA7195-39-38 18:46:00 Test Item Value Reference Range Interpretation Comments ALT (test code = ALT) 100 See_Comment [Auto mated message] The system which ge nerated this result transmit elizabeth reference range : <=65. The reference range was not used to interpr et this result as lukas l/abnormal. [facility] SurgeryYjjrkddYSVFUTFHVWSP2570-90-92 18:46:00 Test Item Value Reference Range Interpretation Comments AST (test code = AST) 53 See_Comment [Auto mated message] The system which ge nerated this result transmit elizabeth reference range : <=37. The reference range was not used to interpr et this result as lukas l/abnormal. [facility] SurgeryLyexsymGROHLRWFNGAU3679-13-84 18:46:00 Test Item Value Reference Range Interpretation Comments Total Protein (test code = Total 6.9 6.4-8.4 Protein) [facility] CenterTeekjliLSDJMWCJOU4637-60-40 18:46:00 Test Item Value Reference Range Interpretation Comments Eosinophils (test code = 4.2 See_Comment [A utomated message] The Eosinophils) system which ge nerated this result tra nsmitted reference range : <=4.0. The reference r mitra was not used to int erpret this result as normal/abnormal . [facility] HospitalWfrmjaqVWMUBARLST4547-51-82 18:46:00 Test Item Value Reference Range Interpretation Comments Segs (test code = Segs) 56.4 45.0-75.0 [facility] HospitalZfyvjnpAMJNLLYSZR5907-26-03 18:46:00 Test Item Value Reference Range Interpretation Comments Monocytes (test code = Monocytes) 10.3 2.0-12.0 [facility] HospitalTwijfmeYLPFRSJNEL9299-64-62 18:46:00 Test Item Value Reference Range Interpretation Comments Lymphocytes (test code = Lymphocytes) 28.0 20.0-40.0 [facility] HospitalSjdyxlxRRDTVEBUGQ6799-78-19 18:46:00 Test Item Value Reference Range Interpretation Comments Monocytes # (test code 0.5 See_Comment [Aut omated message] The = Monocytes #) system which generated this result tra nsmitted reference range : <=0.8. The reference r mitra was not used to int erpret this result as normal/abnormal . [facility] HospitalTmjvwoaIZGHBDZMAA0462-87-99 18:46:00 Test Item Value Reference Range Interpretation Comments Basophils (test code = 1.1 See_Comment [Aut omated message] The Basophils) system which ge nerated this result tra nsmitted reference range : <=1.0. The reference r mitra was not used to int erpret this result as normal/abnormal . [facility] HospitalEhtzyczQZFNQKYFUB9609-70-15 18:46:00 Test Item Value Reference Range Interpretation Comments Lymphocytes # (test code = Lymphocytes 1.5 1.0-5.5 #) [facility] HospitalQkyohvpKWMVSZSCID2794-23-47 18:46:00 Test Item Value Reference Range Interpretation Comments Segs-Bands # (test code = Segs-Bands #) 2.9 1.5-8.1 [facility] HospitalQzbsyseLXLHCOYCWM0209-19-67 18:46:00 Test Item Value Reference Range Interpretation Comments Eosinophils # (test code 0.2 See_Comment [A utomated message] The = Eosinophils #) system whic h generated this result tra nsmitted reference range : <=0.5. The reference r mitra was not used to int erpret this result as normal/abnormal . [facility] HospitalFowjwldWVCIRSKGMN3016-02-96 18:46:00 Test Item Value Reference Range Interpretation Comments Basophils # (test code 0.1 See_Comment [Aut omated message] The = Basophils #) system which generated this result tra nsmitted reference range : <=0.2. The reference r mitra was not used to int erpret this result as normal/abnormal . [facility] HospitalKdhcsghYTULGDYGBL6554-09-27 18:46:00 Test Item Value Reference Range Interpretation Comments PT (test code = PT) 11.2 s 12.0-14.7 [facility] HospitalVstgfeaLROOYXCLEI4417-05-06 18:46:00 Test Item Value Reference Range Interpretation Comments INR (test code = INR) 0.82 0.85-1.17 [facility] HospitalAbqnwapJPLTHVOGWF1081-17-23 18:46:00 Test Item Value Reference Range Interpretation Comments PTT (test code = PTT) 28.6 s 22.9-35.8 [facility] HospitalMsrbqnsBNFRQFXEKO3548-77-14 18:46:00 Test Item Value Reference Range Interpretation Comments MPV (test code = MPV) 8.1 7.4-10.4 [facility] HospitalIxzpsudXEIACMVHAI0929-52-95 18:46:00 Test Item Value Reference Range Interpretation Comments Platelet (test code = Platelet) 301 133-450 [facility] HospitalMqbbehtVGXBVTSBTH0782-46-86 18:46:00 Test Item Value Reference Range Interpretation Comments RDW (test code = RDW) 14.5 11.5-14.5 [facility] HospitalGscrermKYULCFFNLG6714-05-86 18:46:00 Test Item Value Reference Range Interpretation Comments RBC (test code = RBC) 4.84 4.70-6.10 [facility] HospitalSusceogXTPRUJTMQK2876-40-78 18:46:00 Test Item Value Reference Range Interpretation Comments Hgb (test code = Hgb) 14.4 14.0-18.0 [facility] HospitalElnwcllXAHEIGHESH8950-12-13 18:46:00 Test Item Value Reference Range Interpretation Comments WBC (test code = WBC) 5.2 3.7-10.4 [facility] HospitalUjibzipMDSAQKFCZW2318-31-17 18:46:00 Test Item Value Reference Range Interpretation Comments MCH (test code = MCH) 29.8 pg 27.0-31.0 [facility] ItbnqgeUXSXYIBENV8762-05-40 18:46:00 Test Item Value Reference Range Interpretation Comments MCV (test code = MCV) 92.0 80.0-94.0 [facility] BkfkrcxYWEEKXHRPH1756-92-20 18:46:00 Test Item Value Reference Range Interpretation Comments Hct (test code = Hct) 44.5 42.0-54.0 [facility] NkcxxvcBNHYDNZXOG2694-30-11 18:46:00 Test Item Value Reference Range Interpretation Comments MCHC (test code = MCHC) 32.4 32.0-36.0 [facility] ThhucvdYEMWUJXCHK2344-03-22 18:46:00 Test Item Value Reference Range Interpretation Comments [place]-Hep C Ab (test Negative *NA*(07/22/14 code = [place]-Hep C 1:46 PM) Ab) [facility] AND [id number] 18:46:00 Test Item Value Reference Range Interpretation Comments UA Urobilinogen (test code = UA <=1.0 mg/dL 0.1-1.0 Urobilinogen) [facility] AND [id number] 18:46:00 Test Item Value Reference Range Interpretation Comments UA Sq Epi (test code = UA Sq Epi) None Seen [facility] AND [id number] 18:46:00 Test Item Value Reference Range Interpretation Comments UA Leuk Est (test Negative (07/22/14 1:46 code = UA Leuk Est) PM) [facility] AND [id number] 18:46:00 Test Item Value Reference Range Interpretation Comments UA Nitrite (test code Negative (07/22/14 1:46 = UA Nitrite) PM) [facility] AND [id number] 18:46:00 Test Item Value Reference Range Interpretation Comments UA Blood (test code = Negative (07/22/14 1:46 UA Blood) PM) [facility] [id number] 18:46:00 Test Item Value Reference Range Interpretation Comments UA Ketones (test code = UA Negative mg/dL Ketones) [facility] AND [id number] 18:46:00 Test Item Value Reference Range Interpretation Comments UA Bili (test code = Negative *NA*(07/22/14 UA Bili) 1:46 PM) [facility] [id number] 18:46:00 Test Item Value Reference Range Interpretation Comments UA Bacteria (test code = UA Occasional /HPF Bacteria) [facility] [id number] 18:46:00 Test Item Value Reference Range Interpretation Comments UA RBC (test code = no gt See_Comment [Automa elizabeth message] The UA RBC) system which ge nerated this result transmit elizabeth reference range : <=2. The reference range was not used to interpr et this result as lukas l/abnormal. [facility] [id number] 18:46:00 Test Item Value Reference Range Interpretation Comments UA WBC (test code = 1 See_Comment [Automa elizabeth message] The UA WBC) system which ge nerated this result transmit elizabeth reference range : <=5. The reference range was not used to interpr et this result as lukas l/abnormal. [facility] AND [id number] 18:46:00 Test Item Value Reference Range Interpretation Comments UA Glucose (test code = UA Glucose) 30 mg/dL [facility] [id number] 18:46:00 Test Item Value Reference Range Interpretation Comments UA Protein (test code = UA Negative mg/dL Protein) [facility] [id number] 18:46:00 Test Item Value Reference Range Interpretation Comments UA pH (test code = UA pH) 6.5 5.0-8.0 [facility] AND [id number] 18:46:00 Test Item Value Reference Range Interpretation Comments UA Turbidity (test code = Clear (07/22/14 1:46 UA Turbidity) PM) [facility] [id number] 18:46:00 Test Item Value Reference Range Interpretation Comments UA Spec Grav (test code = UA Spec Grav) 1.010 [facility] [id number] 18:46:00 Test Item Value Reference Range Interpretation Comments UA Color (test code = Light Yellow UA Color) *NA*(07/22/14 1:46 PM) [facility] [id number] 18:46:00 Test Item Value Reference Range Interpretation Comments Magnesium Lvl (test code = Magnesium 1.8 1.8-2.4 Lvl) [facility] IrwwfxzJFJLLWCKQBJC6939-10-72 18:46:00 Test Item Value Reference Range Interpretation Comments AGAP (test code = AGAP) 13.2 10.0-20.0 [facility] SurgeryFczovvjRSPUNIYJVZMW3037-66-96 18:46:00 Test Item Value Reference Range Interpretation Comments B/C Ratio (test code = B/C Ratio) 18 6-25 [facility] SurgeryGtgfhlcKEKBYJDPUIGP7902-08-00 18:46:00 Test Item Value Reference Range Interpretation Comments A/G Ratio (test code = A/G Ratio) 1.1 0.7-1.6 [facility] SurgeryRureueyAFIRALYDIMGK2042-74-47 18:46:00 Test Item Value Reference Range Interpretation Comments Globulin (test code = Globulin) 3.3 2.0-4.0 [facility] SurgeryKstyjkrJGSOCTSWYMQH3346-86-27 18:46:00 Test Item Value Reference Range Interpretation Comments eGFR (test code = eGFR) 99 [facility] SurgeryDufdzzvJQKESONGTTQB3791-01-99 18:46:00 Test Item Value Reference Range Interpretation Comments Calcium Lvl (test code = Calcium Lvl) 9.0 8.5-10.5 [facility] SurgeryXzwfhlwGTPSFRFGLBAL8153-84-13 18:46:00 Test Item Value Reference Range Interpretation Comments Chloride Lvl (test code = Chloride Lvl) 106 95-109 [facility] SurgeryJrnqxmlXGEBAZTFSVFE2478-15-35 18:46:00 Test Item Value Reference Range Interpretation Comments Creatinine Lvl (test code = Creatinine 0.9 0.5-1.4 Lvl) [facility] SurgeryVmrevnfDSPGPSDUVXIU8891-71-52 18:46:00 Test Item Value Reference Range Interpretation Comments Potassium Lvl (test code = Potassium 4.2 3.5-5.1 Lvl) [facility] SurgeryHhehnaiSFKJELITYMNS4514-05-31 18:46:00 Test Item Value Reference Range Interpretation Comments Sodium Lvl (test code = Sodium Lvl) 139 135-145 [facility] SurgeryHuukttuLGSRUNRFAYER3840-13-16 18:46:00 Test Item Value Reference Range Interpretation Comments CO2 (test code = CO2) 24 24-32 [facility] SurgeryErxhwpjSBRHATINFITV3634-69-16 18:46:00 Test Item Value Reference Range Interpretation Comments BUN (test code = BUN) 16 7-22 [facility] SurgeryDsandubADCBBINFURDP9654-57-81 18:46:00 Test Item Value Reference Range Interpretation Comments Glucose Lvl (test code = Glucose Lvl) 141 70-99 [facility] SurgerySqhqltfFOEZYRRLEADC8631-84-60 18:46:00 Test Item Value Reference Range Interpretation Comments Albumin Lvl (test code = Albumin Lvl) 3.6 3.5-5.0 [facility] SurgeryDbpgrfsZQIHIVJNHDLI7759-21-70 18:46:00 Test Item Value Reference Range Interpretation Comments Alk Phos (test code = Alk Phos) 65 39-136 [facility] SurgeryQkaojkgRTXLVNFWKKEK2890-30-61 18:46:00 Test Item Value Reference Range Interpretation Comments Bili Total (test code = Bili Total) 0.3 0.2-1.3 [facility] SurgeryChzakiqAQBRJFZXYIQP6605-23-77 18:46:00 Test Item Value Reference Range Interpretation Comments ALT (test code = ALT) 100 See_Comment [Auto mated message] The system which ge nerated this result transmit elizabeth reference range : <=65. The reference range was not used to interpr et this result as lukas l/abnormal. [facility] SurgeryZnylumpDDZUBNFDGPCC9052-55-09 18:46:00 Test Item Value Reference Range Interpretation Comments AST (test code = AST) 53 See_Comment [Auto mated message] The system which ge nerated this result transmit elizabeth reference range : <=37. The reference range was not used to interpr et this result as lukas l/abnormal. [facility] SurgeryDsedbunZXWJKCZHMGYV5137-45-37 18:46:00 Test Item Value Reference Range Interpretation Comments Total Protein (test code = Total 6.9 6.4-8.4 Protein) [facility] HospitalPpotxrdVBZEHKKDSV2943-72-55 18:46:00 Test Item Value Reference Range Interpretation Comments Eosinophils (test code = 4.2 See_Comment [A utomated message] The Eosinophils) system which ge nerated this result tra nsmitted reference range : <=4.0. The reference r mitra was not used to int erpret this result as normal/abnormal . [facility] HospitalBnnwxadVGJWKESIGF7899-48-99 18:46:00 Test Item Value Reference Range Interpretation Comments Segs (test code = Segs) 56.4 45.0-75.0 [facility] HospitalNcjybaoOVHLZSNCYZ3294-92-74 18:46:00 Test Item Value Reference Range Interpretation Comments Monocytes (test code = Monocytes) 10.3 2.0-12.0 [facility] HospitalNznxmicJSBFKKXSWY6132-22-58 18:46:00 Test Item Value Reference Range Interpretation Comments Lymphocytes (test code = Lymphocytes) 28.0 20.0-40.0 [facility] HospitalTocswcgXHBXWZMYLJ8814-96-94 18:46:00 Test Item Value Reference Range Interpretation Comments Monocytes # (test code 0.5 See_Comment [Aut omated message] The = Monocytes #) system which generated this result tra nsmitted reference range : <=0.8. The reference r mitra was not used to int erpret this result as normal/abnormal . [facility] HospitalWnqmndeKIYZWNBNDH4476-06-07 18:46:00 Test Item Value Reference Range Interpretation Comments Basophils (test code = 1.1 See_Comment [Aut omated message] The Basophils) system which ge nerated this result tra nsmitted reference range : <=1.0. The reference r mitra was not used to int erpret this result as normal/abnormal . [facility] HospitalVvwgatxLXTSXTMRNR9245-39-02 18:46:00 Test Item Value Reference Range Interpretation Comments Lymphocytes # (test code = Lymphocytes 1.5 1.0-5.5 #) [facility] HospitalNyhludtTBNYBIBOER7763-82-02 18:46:00 Test Item Value Reference Range Interpretation Comments Segs-Bands # (test code = Segs-Bands #) 2.9 1.5-8.1 [facility] HospitalFousxlqBECJVYMHXL7821-17-30 18:46:00 Test Item Value Reference Range Interpretation Comments Eosinophils # (test code 0.2 See_Comment [A utomated message] The = Eosinophils #) system whic h generated this result tra nsmitted reference range : <=0.5. The reference r mitra was not used to int erpret this result as normal/abnormal . [facility] HospitalFntxmrvCRICLUFSWL2491-41-70 18:46:00 Test Item Value Reference Range Interpretation Comments Basophils # (test code 0.1 See_Comment [Aut omated message] The = Basophils #) system which generated this result tra nsmitted reference range : <=0.2. The reference r mitra was not used to int erpret this result as normal/abnormal . [facility] HospitalBhnnpmxLNRBRCPSCH0706-63-46 18:46:00 Test Item Value Reference Range Interpretation Comments PT (test code = PT) 11.2 s 12.0-14.7 [facility] HospitalLnoecynBUUBKWJWKP4409-24-86 18:46:00 Test Item Value Reference Range Interpretation Comments INR (test code = INR) 0.82 0.85-1.17 [facility] HospitalGqbfqsuUSBNVDALFR8858-07-74 18:46:00 Test Item Value Reference Range Interpretation Comments PTT (test code = PTT) 28.6 s 22.9-35.8 [facility] HospitalZzdpnndGRLZHHPRXH9286-91-86 18:46:00 Test Item Value Reference Range Interpretation Comments MPV (test code = MPV) 8.1 7.4-10.4 [facility] HospitalRirhontLVCWFJWXSI8778-21-54 18:46:00 Test Item Value Reference Range Interpretation Comments Platelet (test code = Platelet) 301 133-450 [facility] HospitalElqwvxoEHQAROPHTI6895-44-01 18:46:00 Test Item Value Reference Range Interpretation Comments RDW (test code = RDW) 14.5 11.5-14.5 [facility] HospitalEvrmsmcWMRYNDZAZQ2394-11-42 18:46:00 Test Item Value Reference Range Interpretation Comments RBC (test code = RBC) 4.84 4.70-6.10 [facility] HospitalWqqmceuMBHBCUAOMK2760-19-89 18:46:00 Test Item Value Reference Range Interpretation Comments Hgb (test code = Hgb) 14.4 14.0-18.0 [facility] HospitalWsbolvvHKSSDOOXEK9060-62-94 18:46:00 Test Item Value Reference Range Interpretation Comments WBC (test code = WBC) 5.2 3.7-10.4 [facility] HospitalNgxxptsSNRVDXGVGM4170-84-18 18:46:00 Test Item Value Reference Range Interpretation Comments MCH (test code = MCH) 29.8 pg 27.0-31.0 [facility] HospitalXwvlnevBFIEPDRWTA9246-27-61 18:46:00 Test Item Value Reference Range Interpretation Comments MCV (test code = MCV) 92.0 80.0-94.0 [facility] H[id number] 18:46:00 Test Item Value Reference Range Interpretation Comments Hct (test code = Hct) 44.5 42.0-54.0 [facility] HospitalGzewalhWDJDOGSCBV1712-41-83 18:46:00 Test Item Value Reference Range Interpretation Comments MCHC (test code = MCHC) 32.4 32.0-36.0 [facility] 18:46:00 Test Item Value Reference Range Interpretation Comments [place]-Hep C Ab (test Negative *NA*(07/22/14 code = [place]-Hep C 1:46 PM) Ab) [facility] AND [id number] 18:46:00 Test Item Value Reference Range Interpretation Comments UA Urobilinogen (test code = UA <=1.0 mg/dL 0.1-1.0 Urobilinogen) [facility] AND [id number] 18:46:00 Test Item Value Reference Range Interpretation Comments UA Sq Epi (test code = UA Sq Epi) None Seen [facility] AND [id number] 18:46:00 Test Item Value Reference Range Interpretation Comments UA Leuk Est (test Negative (07/22/14 1:46 code = UA Leuk Est) PM) [facility] AND [id number] 18:46:00 Test Item Value Reference Range Interpretation Comments UA Nitrite (test code Negative (07/22/14 1:46 = UA Nitrite) PM) [facility] AND [id number] 18:46:00 Test Item Value Reference Range Interpretation Comments UA Blood (test code = Negative (07/22/14 1:46 UA Blood) PM) [facility] AND [id number] 18:46:00 Test Item Value Reference Range Interpretation Comments UA Ketones (test code = UA Negative mg/dL Ketones) [facility] AND [id number] 18:46:00 Test Item Value Reference Range Interpretation Comments UA Bili (test code = Negative *NA*(07/22/14 UA Bili) 1:46 PM) [facility] AND [id number] 18:46:00 Test Item Value Reference Range Interpretation Comments UA Bacteria (test code = UA Occasional /HPF Bacteria) [facility] AND [id number] 18:46:00 Test Item Value Reference Range Interpretation Comments UA RBC (test code = no gt See_Comment [Automa elizabeth message] The UA RBC) system which ge nerated this result transmit elizabeth reference range : <=2. The reference range was not used to interpr et this result as lukas l/abnormal. [facility] AND [id number] 18:46:00 Test Item Value Reference Range Interpretation Comments UA WBC (test code = 1 See_Comment [Automa elizabeth message] The UA WBC) system which ge nerated this result transmit elizabeth reference range : <=5. The reference range was not used to interpr et this result as lukas l/abnormal. [facility] AND [id number] 18:46:00 Test Item Value Reference Range Interpretation Comments UA Glucose (test code = UA Glucose) 30 mg/dL [facility] AND [id number] 18:46:00 Test Item Value Reference Range Interpretation Comments UA Protein (test code = UA Negative mg/dL Protein) [facility] AND [id number] 18:46:00 Test Item Value Reference Range Interpretation Comments UA pH (test code = UA pH) 6.5 5.0-8.0 [facility] AND [id number] 18:46:00 Test Item Value Reference Range Interpretation Comments UA Turbidity (test code = Clear (07/22/14 1:46 UA Turbidity) PM) [facility] AND [id number] 18:46:00 Test Item Value Reference Range Interpretation Comments UA Spec Grav (test code = UA Spec Grav) 1.010 [facility] AND [id number] 18:46:00 Test Item Value Reference Range Interpretation Comments UA Color (test code = Light Yellow UA Color) *NA*(07/22/14 1:46 PM) [facility] [id number] 18:46:00 Test Item Value Reference Range Interpretation Comments Magnesium Lvl (test code = Magnesium 1.8 1.8-2.4 Lvl) [facility] SurgeryWqvgjflCGTBMPOMXBFR9418-09-59 18:46:00 Test Item Value Reference Range Interpretation Comments AGAP (test code = AGAP) 13.2 10.0-20.0 [facility] SurgeryLrxmgknJZERYGNGVLOW7274-45-10 18:46:00 Test Item Value Reference Range Interpretation Comments B/C Ratio (test code = B/C Ratio) 18 6-25 [facility] SurgeryWlxhvjgVLDJJQHSXKWO2250-00-25 18:46:00 Test Item Value Reference Range Interpretation Comments A/G Ratio (test code = A/G Ratio) 1.1 0.7-1.6 [facility] SurgeryLokasakPRYKGCDISAJC5523-99-00 18:46:00 Test Item Value Reference Range Interpretation Comments Globulin (test code = Globulin) 3.3 2.0-4.0 [facility] Surgery[id number] 18:46:00 Test Item Value Reference Range Interpretation Comments eGFR (test code = eGFR) 99 [facility] SurgeryPamfoekNBFZTUKTCCHH5992-57-74 18:46:00 Test Item Value Reference Range Interpretation Comments Calcium Lvl (test code = Calcium Lvl) 9.0 8.5-10.5 [facility] SurgeryOrkoqacXDFHQDAMUFOW1384-81-44 18:46:00 Test Item Value Reference Range Interpretation Comments Chloride Lvl (test code = Chloride Lvl) 106 95-109 [facility] SurgerySlqpnwjNPIASXHIPZAX7881-01-07 18:46:00 Test Item Value Reference Range Interpretation Comments Creatinine Lvl (test code = Creatinine 0.9 0.5-1.4 Lvl) [facility] SurgeryVgtxhwuRRQSSTZXNAHZ9951-36-47 18:46:00 Test Item Value Reference Range Interpretation Comments Potassium Lvl (test code = Potassium 4.2 3.5-5.1 Lvl) [facility] SurgeryVnmxpajNIVUZDBUXGCV6157-32-52 18:46:00 Test Item Value Reference Range Interpretation Comments Sodium Lvl (test code = Sodium Lvl) 139 135-145 [facility] SurgeryJaukjopQFRGIRAQBVBR4581-50-41 18:46:00 Test Item Value Reference Range Interpretation Comments CO2 (test code = CO2) 24 24-32 [facility] SurgeryFsrlvmjJSNYMRYSWFXM3370-06-68 18:46:00 Test Item Value Reference Range Interpretation Comments BUN (test code = BUN) 16 7-22 [facility] SurgeryYauptctAKESYFBOHAGW5399-84-77 18:46:00 Test Item Value Reference Range Interpretation Comments Glucose Lvl (test code = Glucose Lvl) 141 70-99 [facility] SurgeryQwmkusuYZIOMSNFYSXU5588-73-77 18:46:00 Test Item Value Reference Range Interpretation Comments Albumin Lvl (test code = Albumin Lvl) 3.6 3.5-5.0 [facility] SurgeryGriwsobNHSHAKCESUPR7263-59-86 18:46:00 Test Item Value Reference Range Interpretation Comments Alk Phos (test code = Alk Phos) 65 39-136 [facility] SurgeryIxkzgxxOFXVADQTXQYM5516-87-54 18:46:00 Test Item Value Reference Range Interpretation Comments Bili Total (test code = Bili Total) 0.3 0.2-1.3 [facility] SurgeryLcturikBZAMCVAICHKT1666-30-02 18:46:00 Test Item Value Reference Range Interpretation Comments ALT (test code = ALT) 100 See_Comment [Auto mated message] The system which ge nerated this result transmit elizabeth reference range : <=65. The reference range was not used to interpr et this result as lukas l/abnormal. [facility] SurgeryLqammhgHAUWBLBGXEGZ7347-19-66 18:46:00 Test Item Value Reference Range Interpretation Comments AST (test code = AST) 53 See_Comment [Auto mated message] The system which ge nerated this result transmit elizabeth reference range : <=37. The reference range was not used to interpr et this result as lukas l/abnormal. [facility] SurgeryHvzzbrtLBPPNHBMCFJE3269-81-69 18:46:00 Test Item Value Reference Range Interpretation Comments Total Protein (test code = Total 6.9 6.4-8.4 Protein) [facility] HospitalGeydrecGFCWSFQNWS1936-55-50 18:46:00 Test Item Value Reference Range Interpretation Comments Eosinophils (test code = 4.2 See_Comment [A utomated message] The Eosinophils) system which ge nerated this result tra nsmitted reference range : <=4.0. The reference r mitra was not used to int erpret this result as normal/abnormal . [facility] HospitalKhilwuiTZNSGYLBBI5428-45-84 18:46:00 Test Item Value Reference Range Interpretation Comments Segs (test code = Segs) 56.4 45.0-75.0 [facility] HospitalDpztssxTSDLLZZQUP0411-27-72 18:46:00 Test Item Value Reference Range Interpretation Comments Monocytes (test code = Monocytes) 10.3 2.0-12.0 [facility] HospitalTkayxbzQTZZOOELAT8496-76-23 18:46:00 Test Item Value Reference Range Interpretation Comments Lymphocytes (test code = Lymphocytes) 28.0 20.0-40.0 [facility] HospitalZisbefhHFBISXLQOY2596-43-91 18:46:00 Test Item Value Reference Range Interpretation Comments Monocytes # (test code 0.5 See_Comment [Aut omated message] The = Monocytes #) system which generated this result tra nsmitted reference range : <=0.8. The reference r mitra was not used to int erpret this result as normal/abnormal . [facility] HospitalEdtwchgEGYAXQKMUR8540-68-78 18:46:00 Test Item Value Reference Range Interpretation Comments Basophils (test code = 1.1 See_Comment [Aut omated message] The Basophils) system which ge nerated this result tra nsmitted reference range : <=1.0. The reference r mitra was not used to int erpret this result as normal/abnormal . [facility] HospitalAazkplpXBXCIRMPTD8411-70-95 18:46:00 Test Item Value Reference Range Interpretation Comments Lymphocytes # (test code = Lymphocytes 1.5 1.0-5.5 #) [facility] HospitalUrrvbbgOYNCGLAMOU6589-07-80 18:46:00 Test Item Value Reference Range Interpretation Comments Segs-Bands # (test code = Segs-Bands #) 2.9 1.5-8.1 [facility] HospitalXusfihxSZXHWOUSZM5049-88-52 18:46:00 Test Item Value Reference Range Interpretation Comments Eosinophils # (test code 0.2 See_Comment [A utomated message] The = Eosinophils #) system whic h generated this result tra nsmitted reference range : <=0.5. The reference r mitra was not used to int erpret this result as normal/abnormal . [facility] HospitalEdtcqceXIPAJZYYYS3871-40-02 18:46:00 Test Item Value Reference Range Interpretation Comments Basophils # (test code 0.1 See_Comment [Aut omated message] The = Basophils #) system which generated this result tra nsmitted reference range : <=0.2. The reference r mirta was not used to int erpret this result as normal/abnormal . [facility] HospitalEwbozygLWUYBNRBUR5216-53-75 18:46:00 Test Item Value Reference Range Interpretation Comments PT (test code = PT) 11.2 s 12.0-14.7 [facility] HospitalAdsilnrHENHNRCCBP4280-45-10 18:46:00 Test Item Value Reference Range Interpretation Comments INR (test code = INR) 0.82 0.85-1.17 [facility] HospitalFvpispmJSFAGNQVQF1219-85-00 18:46:00 Test Item Value Reference Range Interpretation Comments PTT (test code = PTT) 28.6 s 22.9-35.8 [facility] HospitalOgcjkdmOBQUXDDCCG7619-46-50 18:46:00 Test Item Value Reference Range Interpretation Comments MPV (test code = MPV) 8.1 7.4-10.4 [facility] HospitalLiqrtvwMDHDRYUYWF4625-03-77 18:46:00 Test Item Value Reference Range Interpretation Comments Platelet (test code = Platelet) 301 133-450 [facility]HnogjeuYDUTFIYBBU6103-93-56 18:46:00 Test Item Value Reference Range Interpretation Comments RDW (test code = RDW) 14.5 11.5-14.5 [facility] HospitalDrycqqbUUQSSYVCOU8047-76-74 18:46:00 Test Item Value Reference Range Interpretation Comments RBC (test code = RBC) 4.84 4.70-6.10 [facility] HospitalIvvenmwEPMBCXYPSO5906-24-58 18:46:00 Test Item Value Reference Range Interpretation Comments Hgb (test code = Hgb) 14.4 14.0-18.0 [facility] HospitalNpmieutXPUDWYRUFS2888-24-58 18:46:00 Test Item Value Reference Range Interpretation Comments WBC (test code = WBC) 5.2 3.7-10.4 [facility] HospitalPwdqflxSDZPNWAWSH2240-05-56 18:46:00 Test Item Value Reference Range Interpretation Comments MCH (test code = MCH) 29.8 pg 27.0-31.0 [facility] HospitalGpqyxccQQOZVBSLEV3014-65-04 18:46:00 Test Item Value Reference Range Interpretation Comments MCV (test code = MCV) 92.0 80.0-94.0 [facility] HospitalRagmksrHOIXVFBBPC0999-43-88 18:46:00 Test Item Value Reference Range Interpretation Comments Hct (test code = Hct) 44.5 42.0-54.0 [facility] HospitalSnioqybKPHEPTMGRY4891-70-09 18:46:00 Test Item Value Reference Range Interpretation Comments MCHC (test code = MCHC) 32.4 32.0-36.0 [facility]VuexvmuLEYOIFPCAF2892-14-60 18:46:00 Test Item Value Reference Range Interpretation Comments [place]-Hep C Ab (test Negative *NA*(07/22/14 code = [place]-Hep C 1:46 PM) Ab) [facility] AND [id number] 18:46:00 Test Item Value Reference Range Interpretation Comments UA Urobilinogen (test code = UA <=1.0 mg/dL 0.1-1.0 Urobilinogen) [facility] [id number] 18:46:00 Test Item Value Reference Range Interpretation Comments UA Sq Epi (test code = UA Sq Epi) None Seen [facility] AND [id number] 18:46:00 Test Item Value Reference Range Interpretation Comments UA Leuk Est (test Negative (07/22/14 1:46 code = UA Leuk Est) PM) [facility] AND [id number] 18:46:00 Test Item Value Reference Range Interpretation Comments UA Nitrite (test code Negative (07/22/14 1:46 = UA Nitrite) PM) [facility] AND [id number] 18:46:00 Test Item Value Reference Range Interpretation Comments UA Blood (test code = Negative (07/22/14 1:46 UA Blood) PM) [facility] AND [id number] 18:46:00 Test Item Value Reference Range Interpretation Comments UA Ketones (test code = UA Negative mg/dL Ketones) [facility] AND [id number] 18:46:00 Test Item Value Reference Range Interpretation Comments UA Bili (test code = Negative *NA*(07/22/14 UA Bili) 1:46 PM) [facility] AND [id number] 18:46:00 Test Item Value Reference Range Interpretation Comments UA Bacteria (test code = UA Occasional /HPF Bacteria) [facility] AND [id number] 18:46:00 Test Item Value Reference Range Interpretation Comments UA RBC (test code = no gt See_Comment [Automa elizabeth message] The UA RBC) system which ge nerated this result transmit elizabeth reference range : <=2. The reference range was not used to interpr et this result as lukas l/abnormal. [facility] AND [id number] 18:46:00 Test Item Value Reference Range Interpretation Comments UA WBC (test code = 1 See_Comment [Automa elizabeth message] The UA WBC) system which ge nerated this result transmit elizabeth reference range : <=5. The reference range was not used to interpr et this result as lukas l/abnormal. [facility] AND [id number] 18:46:00 Test Item Value Reference Range Interpretation Comments UA Glucose (test code = UA Glucose) 30 mg/dL [facility] AND [id number] 18:46:00 Test Item Value Reference Range Interpretation Comments UA Protein (test code = UA Negative mg/dL Protein) [facility] AND [id number] 18:46:00 Test Item Value Reference Range Interpretation Comments UA pH (test code = UA pH) 6.5 5.0-8.0 [facility] [id number] 18:46:00 Test Item Value Reference Range Interpretation Comments UA Turbidity (test code = Clear (07/22/14 1:46 UA Turbidity) PM) [facility] [id number] 18:46:00 Test Item Value Reference Range Interpretation Comments UA Spec Grav (test code = UA Spec Grav) 1.010 [facility] AND [id number] 18:46:00 Test Item Value Reference Range Interpretation Comments UA Color (test code = Light Yellow UA Color) *NA*(07/22/14 1:46 PM) [facility] [id number] 18:46:00 Test Item Value Reference Range Interpretation Comments Magnesium Lvl (test code = Magnesium 1.8 1.8-2.4 Lvl) [facility]TsxowxaGHQDKIGQMEUY5060-83-81 18:46:00 Test Item Value Reference Range Interpretation Comments AGAP (test code = AGAP) 13.2 10.0-20.0 [facility] SurgeryGqvxldqXZCNVNDOMNAS0991-32-79 18:46:00 Test Item Value Reference Range Interpretation Comments B/C Ratio (test code = B/C Ratio) 18 6-25 [facility] SurgeryGtwjrpjSPISPVBAZUCK0447-19-88 18:46:00 Test Item Value Reference Range Interpretation Comments A/G Ratio (test code = A/G Ratio) 1.1 0.7-1.6 [facility] SystemGznwpbbOMQWJDAVKCQT7255-54-99 18:46:00 Test Item Value Reference Range Interpretation Comments Globulin (test code = Globulin) 3.3 2.0-4.0 [facility] SystemGqdxgveXIAIKJFKINXI0724-07-77 18:46:00 Test Item Value Reference Range Interpretation Comments eGFR (test code = eGFR) 99 [facility] SurgeryIvrxdenRGAIVXZIOJUS2217-30-21 18:46:00 Test Item Value Reference Range Interpretation Comments Calcium Lvl (test code = Calcium Lvl) 9.0 8.5-10.5 [facility] SurgerySwrbqdrNVXZMNIDWLXS4477-47-11 18:46:00 Test Item Value Reference Range Interpretation Comments Chloride Lvl (test code = Chloride Lvl) 106 95-109 [facility] SurgeryFsxstriQXIGTBYBUYNN6024-67-77 18:46:00 Test Item Value Reference Range Interpretation Comments Creatinine Lvl (test code = Creatinine 0.9 0.5-1.4 Lvl) [facility] SurgeryMrcysubISFQMTAETPOO6571-98-13 18:46:00 Test Item Value Reference Range Interpretation Comments Potassium Lvl (test code = Potassium 4.2 3.5-5.1 Lvl) [facility] SurgeryFlejgbjZREOZHOPOGZB4639-54-16 18:46:00 Test Item Value Reference Range Interpretation Comments Sodium Lvl (test code = Sodium Lvl) 139 135-145 [facility] SurgeryRwbomlzTOOUHXPUWVGC8543-55-48 18:46:00 Test Item Value Reference Range Interpretation Comments CO2 (test code = CO2) 24 24-32 [facility] SurgeryAmrushwMGQQHWAQLAHJ0317-48-01 18:46:00 Test Item Value Reference Range Interpretation Comments BUN (test code = BUN) 16 7-22 [facility] SurgeryYgkytitZNTZZSTZENPB9898-30-54 18:46:00 Test Item Value Reference Range Interpretation Comments Glucose Lvl (test code = Glucose Lvl) 141 70-99 [facility] SurgeryKvmkxnrQMRIEEFAIQEX3863-66-61 18:46:00 Test Item Value Reference Range Interpretation Comments Albumin Lvl (test code = Albumin Lvl) 3.6 3.5-5.0 [facility] SurgeryDxkigqzYGMIXUQSBZID0340-49-04 18:46:00 Test Item Value Reference Range Interpretation Comments Alk Phos (test code = Alk Phos) 65 39-136 [facility] SurgeryEimwhjaXUQMPDXKJBJQ5508-43-80 18:46:00 Test Item Value Reference Range Interpretation Comments Bili Total (test code = Bili Total) 0.3 0.2-1.3 [facility] SurgeryWxrmdkbUGODYNQPQUOV3501-23-27 18:46:00 Test Item Value Reference Range Interpretation Comments ALT (test code = ALT) 100 See_Comment [Auto mated message] The system which ge nerated this result transmit elizabeth reference range : <=65. The reference range was not used to interpr et this result as lukas l/abnormal. [facility] SurgeryDxaiadbKJSOWVSJBFWU7751-58-27 18:46:00 Test Item Value Reference Range Interpretation Comments AST (test code = AST) 53 See_Comment [Auto mated message] The system which ge nerated this result transmit elizabeth reference range : <=37. The reference range was not used to interpr et this result as lukas l/abnormal. [facility] SurgeryVnhniseYNMOCFRMAJJJ8397-24-30 18:46:00 Test Item Value Reference Range Interpretation Comments Total Protein (test code = Total 6.9 6.4-8.4 Protein) [facility] HospitalVafguijEDKXYTQWNM0283-87-66 18:46:00 Test Item Value Reference Range Interpretation Comments Eosinophils (test code = 4.2 See_Comment [A utomated message] The Eosinophils) system which ge nerated this result tra nsmitted reference range : <=4.0. The reference r mitra was not used to int erpret this result as normal/abnormal . [facility] HospitalLgwygtgCTCYHUHSBS4812-31-92 18:46:00 Test Item Value Reference Range Interpretation Comments Segs (test code = Segs) 56.4 45.0-75.0 [facility] HospitalUftbcwqZZYQHNYRNQ3101-49-22 18:46:00 Test Item Value Reference Range Interpretation Comments Monocytes (test code = Monocytes) 10.3 2.0-12.0 [facility] HospitalUkfndeeIBFVBDJNGH1130-10-06 18:46:00 Test Item Value Reference Range Interpretation Comments Lymphocytes (test code = Lymphocytes) 28.0 20.0-40.0 [facility] HospitalBjqtpjjHQDIPRLGZT0820-09-29 18:46:00 Test Item Value Reference Range Interpretation Comments Monocytes # (test code 0.5 See_Comment [Aut omated message] The = Monocytes #) system which generated this result tra nsmitted reference range : <=0.8. The reference r mitra was not used to int erpret this result as normal/abnormal . [facility] HospitalLcbevwtJOYTMRZIIU4944-46-36 18:46:00 Test Item Value Reference Range Interpretation Comments Basophils (test code = 1.1 See_Comment [Aut omated message] The Basophils) system which ge nerated this result tra nsmitted reference range : <=1.0. The reference r mitra was not used to int erpret this result as normal/abnormal . [facility] HospitalXphurrcIDOCZJHJQP6802-36-39 18:46:00 Test Item Value Reference Range Interpretation Comments Lymphocytes # (test code = Lymphocytes 1.5 1.0-5.5 #) [facility] HospitalYnyfglsBZHMCSLTER0431-87-46 18:46:00 Test Item Value Reference Range Interpretation Comments Segs-Bands # (test code = Segs-Bands #) 2.9 1.5-8.1 [facility] HospitalQsrbjgwTZZIQBXSUI2606-73-54 18:46:00 Test Item Value Reference Range Interpretation Comments Eosinophils # (test code 0.2 See_Comment [A utomated message] The = Eosinophils #) system whic h generated this result tra nsmitted reference range : <=0.5. The reference r mitra was not used to int erpret this result as normal/abnormal . [facility] HospitalDiwwrsnGNLNLKDGDP9708-74-01 18:46:00 Test Item Value Reference Range Interpretation Comments Basophils # (test code 0.1 See_Comment [Aut omated message] The = Basophils #) system which generated this result tra nsmitted reference range : <=0.2. The reference r mitra was not used to int erpret this result as normal/abnormal . [facility] HospitalJydioisYZLZXPHNWX3651-32-17 18:46:00 Test Item Value Reference Range Interpretation Comments PT (test code = PT) 11.2 s 12.0-14.7 [facility] HospitalCvbaxmyPBQNVJPHHN1150-90-15 18:46:00 Test Item Value Reference Range Interpretation Comments INR (test code = INR) 0.82 0.85-1.17 [facility] HospitalDrhkqtcILSMJYAHOU4311-09-31 18:46:00 Test Item Value Reference Range Interpretation Comments PTT (test code = PTT) 28.6 s 22.9-35.8 [facility] HospitalEwbewlgVFVGHYRQES1752-64-90 18:46:00 Test Item Value Reference Range Interpretation Comments MPV (test code = MPV) 8.1 7.4-10.4 [facility] HospitalNgoodqqXHZYPEDDOX6086-27-57 18:46:00 Test Item Value Reference Range Interpretation Comments Platelet (test code = Platelet) 301 133-450 [facility] HospitalNjpnsarBRLZHOSKVR5438-62-01 18:46:00 Test Item Value Reference Range Interpretation Comments RDW (test code = RDW) 14.5 11.5-14.5 [facility] HospitalNtdnprdRCWNXQYKZH6821-61-63 18:46:00 Test Item Value Reference Range Interpretation Comments RBC (test code = RBC) 4.84 4.70-6.10 [facility] HospitalQmvlzikYVOLSTAGBT3091-25-70 18:46:00 Test Item Value Reference Range Interpretation Comments Hgb (test code = Hgb) 14.4 14.0-18.0 [facility]LhxklgyYJRCUGQHTU6174-28-96 18:46:00 Test Item Value Reference Range Interpretation Comments WBC (test code = WBC) 5.2 3.7-10.4 [facility]NcyruinCYKKJCIAOM8906-61-57 18:46:00 Test Item Value Reference Range Interpretation Comments MCH (test code = MCH) 29.8 pg 27.0-31.0 [facility]WpwtgwnGNMWUXFWKP4700-55-56 18:46:00 Test Item Value Reference Range Interpretation Comments MCV (test code = MCV) 92.0 80.0-94.0 [facility] CenterEsqrhywKRJTAATORT9194-86-79 18:46:00 Test Item Value Reference Range Interpretation Comments Hct (test code = Hct) 44.5 42.0-54.0 [facility] HospitalIntjpxiLCLDMKMSEN1466-37-07 18:46:00 Test Item Value Reference Range Interpretation Comments MCHC (test code = MCHC) 32.4 32.0-36.0 [facility] CenterMqdomyaVGEKRDJQPW2048-47-71 18:46:00 Test Item Value Reference Range Interpretation Comments [place]-Hep C Ab (test Negative *NA*(07/22/14 code = [place]-Hep C 1:46 PM) Ab) [facility] AND [id number] 18:46:00 Test Item Value Reference Range Interpretation Comments UA Urobilinogen (test code = UA <=1.0 mg/dL 0.1-1.0 Urobilinogen) [facility] AND [id number] 18:46:00 Test Item Value Reference Range Interpretation Comments UA Sq Epi (test code = UA Sq Epi) None Seen [facility] AND [id number] 18:46:00 Test Item Value Reference Range Interpretation Comments UA Leuk Est (test Negative (07/22/14 1:46 code = UA Leuk Est) PM) [facility] AND [id number] 18:46:00 Test Item Value Reference Range Interpretation Comments UA Nitrite (test code Negative (07/22/14 1:46 = UA Nitrite) PM) [facility] AND [id number] 18:46:00 Test Item Value Reference Range Interpretation Comments UA Blood (test code = Negative (07/22/14 1:46 UA Blood) PM) [facility] AND [id number] 18:46:00 Test Item Value Reference Range Interpretation Comments UA Ketones (test code = UA Negative mg/dL Ketones) [facility] AND [id number] 18:46:00 Test Item Value Reference Range Interpretation Comments UA Bili (test code = Negative *NA*(07/22/14 UA Bili) 1:46 PM) [facility] AND [id number] 18:46:00 Test Item Value Reference Range Interpretation Comments UA Bacteria (test code = UA Occasional /HPF Bacteria) [facility] AND [id number] 18:46:00 Test Item Value Reference Range Interpretation Comments UA RBC (test code = no gt See_Comment [Automa elizabeth message] The UA RBC) system which ge nerated this result transmit elizabeth reference range : <=2. The reference range was not used to interpr et this result as lukas l/abnormal. [facility] AND [id number] 18:46:00 Test Item Value Reference Range Interpretation Comments UA WBC (test code = 1 See_Comment [Automa elizabeth message] The UA WBC) system which ge nerated this result transmit elizabeth reference range : <=5. The reference range was not used to interpr et this result as lukas l/abnormal. [facility] AND [id number] 18:46:00 Test Item Value Reference Range Interpretation Comments UA Glucose (test code = UA Glucose) 30 mg/dL [facility] AND [id number] 18:46:00 Test Item Value Reference Range Interpretation Comments UA Protein (test code = UA Negative mg/dL Protein) [facility] AND [id number] 18:46:00 Test Item Value Reference Range Interpretation Comments UA pH (test code = UA pH) 6.5 5.0-8.0 [facility] AND [id number] 18:46:00 Test Item Value Reference Range Interpretation Comments UA Turbidity (test code = Clear (07/22/14 1:46 UA Turbidity) PM) [facility] AND [id number] 18:46:00 Test Item Value Reference Range Interpretation Comments UA Spec Grav (test code = UA Spec Grav) 1.010 [facility] AND [id number] 18:46:00 Test Item Value Reference Range Interpretation Comments UA Color (test code = Light Yellow UA Color) *NA*(07/22/14 1:46 PM) [facility]2015-06-09 18:46:00 Test Item Value Reference Range Interpretation Comments Magnesium Lvl (test code = Magnesium 1.8 1.8-2.4 Lvl) [facility] SurgeryAixeegpUNWFAYKRQYQM7261-34-04 18:46:00 Test Item Value Reference Range Interpretation Comments AGAP (test code = AGAP) 13.2 10.0-20.0 [facility] Surgery[id number] 18:46:00 Test Item Value Reference Range Interpretation Comments B/C Ratio (test code = B/C Ratio) 18 6-25 [facility] SurgeryFiduwxpJCZLGJHHTZJQ2319-86-98 18:46:00 Test Item Value Reference Range Interpretation Comments A/G Ratio (test code = A/G Ratio) 1.1 0.7-1.6 [facility] Surgery[id number] 18:46:00 Test Item Value Reference Range Interpretation Comments Globulin (test code = Globulin) 3.3 2.0-4.0 [facility] SurgeryQjlxragBNDFAGPNGSHI0646-59-42 18:46:00 Test Item Value Reference Range Interpretation Comments eGFR (test code = eGFR) 99 [facility] SurgeryNdswiyeDSASJHDEDNGG2363-05-49 18:46:00 Test Item Value Reference Range Interpretation Comments Calcium Lvl (test code = Calcium Lvl) 9.0 8.5-10.5 [facility] SurgeryOyvgpujSIJPLXKOGNVO9654-82-71 18:46:00 Test Item Value Reference Range Interpretation Comments Chloride Lvl (test code = Chloride Lvl) 106 95-109 [facility] SurgeryDhhuwljCGSLRLCQWZTZ8879-37-85 18:46:00 Test Item Value Reference Range Interpretation Comments Creatinine Lvl (test code = Creatinine 0.9 0.5-1.4 Lvl) [facility] Surgery[id number] 18:46:00 Test Item Value Reference Range Interpretation Comments Potassium Lvl (test code = Potassium 4.2 3.5-5.1 Lvl) [facility] SurgeryPbzverbYALEGYPJKMFZ1610-60-50 18:46:00 Test Item Value Reference Range Interpretation Comments Sodium Lvl (test code = Sodium Lvl) 139 135-145 [facility] SurgeryLvahspzYXEHILRQPODX3925-90-97 18:46:00 Test Item Value Reference Range Interpretation Comments CO2 (test code = CO2) 24 24-32 [facility] SurgeryCgsueycHUFZCEUKCFOX7734-06-90 18:46:00 Test Item Value Reference Range Interpretation Comments BUN (test code = BUN) 16 7-22 [facility] SurgeryYcbccliOFUDEODJFZOP7574-44-85 18:46:00 Test Item Value Reference Range Interpretation Comments Glucose Lvl (test code = Glucose Lvl) 141 70-99 [facility] SurgeryDcktuhrFXLMKCGCPGQG3239-68-52 18:46:00 Test Item Value Reference Range Interpretation Comments Albumin Lvl (test code = Albumin Lvl) 3.6 3.5-5.0 [facility] SurgeryYyyhgsmEAHKCBLVMJNS5028-53-10 18:46:00 Test Item Value Reference Range Interpretation Comments Alk Phos (test code = Alk Phos) 65 39-136 [facility] SurgeryAfegogrRODRZEOEQDZX5866-70-81 18:46:00 Test Item Value Reference Range Interpretation Comments Bili Total (test code = Bili Total) 0.3 0.2-1.3 [facility] SurgeryRafplwpTQPBQTTZDDTU4356-91-33 18:46:00 Test Item Value Reference Range Interpretation Comments ALT (test code = ALT) 100 See_Comment [Auto mated message] The system which ge nerated this result transmit elizabeth reference range : <=65. The reference range was not used to interpr et this result as lukas l/abnormal. [facility] SurgeryXhyrwkfBVNDKUFMKOJT4557-06-19 18:46:00 Test Item Value Reference Range Interpretation Comments AST (test code = AST) 53 See_Comment [Auto mated message] The system which ge nerated this result transmit elizabeth reference range : <=37. The reference range was not used to interpr et this result as lukas l/abnormal. [facility] Surgery[id number] 18:46:00 Test Item Value Reference Range Interpretation Comments Total Protein (test code = Total 6.9 6.4-8.4 Protein) [facility] HospitalVwgugjeVRNYBCSIYR6591-47-38 18:46:00 Test Item Value Reference Range Interpretation Comments Eosinophils (test code = 4.2 See_Comment [A utomated message] The Eosinophils) system which ge nerated this result tra nsmitted reference range : <=4.0. The reference r mitra was not used to int erpret this result as normal/abnormal . [facility] HospitalFjxxtsfNALDQQIBJA2496-85-85 18:46:00 Test Item Value Reference Range Interpretation Comments Segs (test code = Segs) 56.4 45.0-75.0 [facility] HospitalEsthkdxRNSPEBIFTY4403-22-43 18:46:00 Test Item Value Reference Range Interpretation Comments Monocytes (test code = Monocytes) 10.3 2.0-12.0 [facility] HospitalExzhtvuOLEOTLWUNC5696-64-12 18:46:00 Test Item Value Reference Range Interpretation Comments Lymphocytes (test code = Lymphocytes) 28.0 20.0-40.0 [facility] Hospit[id number] 18:46:00 Test Item Value Reference Range Interpretation Comments Monocytes # (test code 0.5 See_Comment [Aut omated message] The = Monocytes #) system which generated this result tra nsmitted reference range : <=0.8. The reference r mitra was not used to int erpret this result as normal/abnormal . [facility] HospitalQddhmtoGVFYNRJQAA2436-55-69 18:46:00 Test Item Value Reference Range Interpretation Comments Basophils (test code = 1.1 See_Comment [Aut omated message] The Basophils) system which ge nerated this result tra nsmitted reference range : <=1.0. The reference r mitra was not used to int erpret this result as normal/abnormal . [facility] HospitalQpjnhdwQOIMXNTIPX9976-35-09 18:46:00 Test Item Value Reference Range Interpretation Comments Lymphocytes # (test code = Lymphocytes 1.5 1.0-5.5 #) [facility] HospitalCzmsuynVFBGCQPFEB1079-29-44 18:46:00 Test Item Value Reference Range Interpretation Comments Segs-Bands # (test code = Segs-Bands #) 2.9 1.5-8.1 [facility] HospitalIdgncwlNXATCKAGPC7245-04-32 18:46:00 Test Item Value Reference Range Interpretation Comments Eosinophils # (test code 0.2 See_Comment [A utomated message] The = Eosinophils #) system whic h generated this result tra nsmitted reference range : <=0.5. The reference r mitra was not used to int erpret this result as normal/abnormal . [facility] HospitalFzynxqwHAFREVDCXJ5899-27-85 18:46:00 Test Item Value Reference Range Interpretation Comments Basophils # (test code 0.1 See_Comment [Aut omated message] The = Basophils #) system which generated this result tra nsmitted reference range : <=0.2. The reference r mitra was not used to int erpret this result as normal/abnormal . [facility] HospitalTudvhswDMEANTFJUZ1263-83-31 18:46:00 Test Item Value Reference Range Interpretation Comments PT (test code = PT) 11.2 s 12.0-14.7 [facility] HospitalXqwicudGJZWMZVULO9298-32-16 18:46:00 Test Item Value Reference Range Interpretation Comments INR (test code = INR) 0.82 0.85-1.17 [facility] HospitalJmrjvqkDDKFBYUBFL3656-69-68 18:46:00 Test Item Value Reference Range Interpretation Comments PTT (test code = PTT) 28.6 s 22.9-35.8 [facility] HospitalHacvcqnCUFULWUFPW2097-15-76 18:46:00 Test Item Value Reference Range Interpretation Comments MPV (test code = MPV) 8.1 7.4-10.4 [facility] HospitalWvvxemfKEMHHIWMWE8077-18-46 18:46:00 Test Item Value Reference Range Interpretation Comments Platelet (test code = Platelet) 301 133-450 [facility] HospitalMeldntpOOFEKPIWEU8262-60-74 18:46:00 Test Item Value Reference Range Interpretation Comments RDW (test code = RDW) 14.5 11.5-14.5 [facility] HospitalUjszzwsPTMKEXCMCD3023-87-72 18:46:00 Test Item Value Reference Range Interpretation Comments RBC (test code = RBC) 4.84 4.70-6.10 [facility] HospitalQupmqhhLENIXVMGQU6483-65-76 18:46:00 Test Item Value Reference Range Interpretation Comments Hgb (test code = Hgb) 14.4 14.0-18.0 [facility] HospitalBwnwlrvFISMKVKZEG0080-56-26 18:46:00 Test Item Value Reference Range Interpretation Comments WBC (test code = WBC) 5.2 3.7-10.4 [facility] HospitalLjnocghUATQBRYFAT9488-72-70 18:46:00 Test Item Value Reference Range Interpretation Comments MCH (test code = MCH) 29.8 pg 27.0-31.0 [facility] HospitalIsuuyeaZEYZHUAQFL9652-07-54 18:46:00 Test Item Value Reference Range Interpretation Comments MCV (test code = MCV) 92.0 80.0-94.0 [facility] HospitalWcwfiwrACQLRYQENJ4376-99-15 18:46:00 Test Item Value Reference Range Interpretation Comments Hct (test code = Hct) 44.5 42.0-54.0 [facility]zlfvltCECCDEIBQQ4662-61-14 18:46:00 Test Item Value Reference Range Interpretation Comments MCHC (test code = MCHC) 32.4 32.0-36.0 [facility] AvmzujhNZIBMUJGMA7048-55-29 18:46:00 Test Item Value Reference Range Interpretation Comments [place]-Hep C Ab (test Negative *NA*(07/22/14 code = [place]-Hep C 1:46 PM) Ab) [facility] [id number] 18:46:00 Test Item Value Reference Range Interpretation Comments UA Urobilinogen (test code = UA <=1.0 mg/dL 0.1-1.0 Urobilinogen) [facility] [id number] 18:46:00 Test Item Value Reference Range Interpretation Comments UA Sq Epi (test code = UA Sq Epi) None Seen [facility] AND [id number] 18:46:00 Test Item Value Reference Range Interpretation Comments UA Leuk Est (test Negative (07/22/14 1:46 code = UA Leuk Est) PM) [facility] [id number] 18:46:00 Test Item Value Reference Range Interpretation Comments UA Nitrite (test code Negative (07/22/14 1:46 = UA Nitrite) PM) [facility] [id number] 18:46:00 Test Item Value Reference Range Interpretation Comments UA Blood (test code = Negative (07/22/14 1:46 UA Blood) PM) [facility] [id number] 18:46:00 Test Item Value Reference Range Interpretation Comments UA Ketones (test code = UA Negative mg/dL Ketones) [facility] AND [id number] 18:46:00 Test Item Value Reference Range Interpretation Comments UA Bili (test code = Negative *NA*(07/22/14 UA Bili) 1:46 PM) [facility] [id number] 18:46:00 Test Item Value Reference Range Interpretation Comments UA Bacteria (test code = UA Occasional /HPF Bacteria) [facility] [id number] 18:46:00 Test Item Value Reference Range Interpretation Comments UA RBC (test code = no gt See_Comment [Automa elizabeth message] The UA RBC) system which ge nerated this result transmit elizabeth reference range : <=2. The reference range was not used to interpr et this result as lukas l/abnormal. [facility] AND [id number] 18:46:00 Test Item Value Reference Range Interpretation Comments UA WBC (test code = 1 See_Comment [Automa elizabeth message] The UA WBC) system which ge nerated this result transmit elizabeth reference range : <=5. The reference range was not used to interpr et this result as lukas l/abnormal. [facility] AND [id number] 18:46:00 Test Item Value Reference Range Interpretation Comments UA Glucose (test code = UA Glucose) 30 mg/dL [facility] AND [id number] 18:46:00 Test Item Value Reference Range Interpretation Comments UA Protein (test code = UA Negative mg/dL Protein) [facility] AND [id number] 18:46:00 Test Item Value Reference Range Interpretation Comments UA pH (test code = UA pH) 6.5 5.0-8.0 [facility] AND [id number] 18:46:00 Test Item Value Reference Range Interpretation Comments UA Turbidity (test code = Clear (07/22/14 1:46 UA Turbidity) PM) [facility] AND [id number] 18:46:00 Test Item Value Reference Range Interpretation Comments UA Spec Grav (test code = UA Spec Grav) 1.010 [facility] AND [id number] 18:46:00 Test Item Value Reference Range Interpretation Comments UA Color (test code = Light Yellow UA Color) *NA*(07/22/14 1:46 PM) [facility] [id number] 18:46:00 Test Item Value Reference Range Interpretation Comments Magnesium Lvl (test code = Magnesium 1.8 1.8-2.4 Lvl) [facility]UtxurupQFRKAIYTQQIP8197-62-82 18:46:00 Test Item Value Reference Range Interpretation Comments AGAP (test code = AGAP) 13.2 10.0-20.0 [facility] SystemXnjleksDSWDFFCMZIBW4531-50-80 18:46:00 Test Item Value Reference Range Interpretation Comments B/C Ratio (test code = B/C Ratio) 18 6-25 [facility] SurgeryUdaszqbVGFNAZSBPTES1313-30-29 18:46:00 Test Item Value Reference Range Interpretation Comments A/G Ratio (test code = A/G Ratio) 1.1 0.7-1.6 [facility] SurgeryDfxekmnSAMEMMKFWOZO8034-68-63 18:46:00 Test Item Value Reference Range Interpretation Comments Globulin (test code = Globulin) 3.3 2.0-4.0 [facility] SurgeryPyslkmxSKHZCTVTWZSL4821-59-32 18:46:00 Test Item Value Reference Range Interpretation Comments eGFR (test code = eGFR) 99 [facility] SurgeryXegiprtSOOGNPROBOED3947-74-79 18:46:00 Test Item Value Reference Range Interpretation Comments Calcium Lvl (test code = Calcium Lvl) 9.0 8.5-10.5 [facility] SurgeryMazpvdlZRFYWOMHABML1072-77-64 18:46:00 Test Item Value Reference Range Interpretation Comments Chloride Lvl (test code = Chloride Lvl) 106 95-109 [facility] SurgeryMgxjlotUJFYSGMUTQCH8090-36-94 18:46:00 Test Item Value Reference Range Interpretation Comments Creatinine Lvl (test code = Creatinine 0.9 0.5-1.4 Lvl) [facility] SurgeryGuboizwPKRRCOFGLAXS2179-97-15 18:46:00 Test Item Value Reference Range Interpretation Comments Potassium Lvl (test code = Potassium 4.2 3.5-5.1 Lvl) [facility] SurgeryOxppldeBESHHMMJFATL1453-00-55 18:46:00 Test Item Value Reference Range Interpretation Comments Sodium Lvl (test code = Sodium Lvl) 139 135-145 [facility] SurgeryXoslelpUQUVAQSENXUN4741-67-25 18:46:00 Test Item Value Reference Range Interpretation Comments CO2 (test code = CO2) 24 24-32 [facility] SurgeryVvrnsipLOWWOPJLUMMH6857-83-85 18:46:00 Test Item Value Reference Range Interpretation Comments BUN (test code = BUN) 16 7-22 [facility] SurgeryLutuylsSLMSWVZYLMMV7029-22-31 18:46:00 Test Item Value Reference Range Interpretation Comments Glucose Lvl (test code = Glucose Lvl) 141 70-99 [facility] SurgeryUfsdutrHNXZFFMOQNZJ6486-61-88 18:46:00 Test Item Value Reference Range Interpretation Comments Albumin Lvl (test code = Albumin Lvl) 3.6 3.5-5.0 [facility] SurgeryOmoolulEZEJMXWMMJGN2700-88-75 18:46:00 Test Item Value Reference Range Interpretation Comments Alk Phos (test code = Alk Phos) 65 39-136 [facility] SurgeryKoqriniSKTMJHWGBZFP7481-86-74 18:46:00 Test Item Value Reference Range Interpretation Comments Bili Total (test code = Bili Total) 0.3 0.2-1.3 [facility] SurgeryQdrhbxpHVGWRUERSHWA9857-30-99 18:46:00 Test Item Value Reference Range Interpretation Comments ALT (test code = ALT) 100 See_Comment [Auto mated message] The system which ge nerated this result transmit elizabeth reference range : <=65. The reference range was not used to interpr et this result as lukas l/abnormal. [facility] SurgeryElwbfoqFLBVYVYNZXWF4010-20-80 18:46:00 Test Item Value Reference Range Interpretation Comments AST (test code = AST) 53 See_Comment [Auto mated message] The system which ge nerated this result transmit elizabeth reference range : <=37. The reference range was not used to interpr et this result as lukas l/abnormal. [facility] SurgeryXcsxxrpIYNWEDIUFWWB0649-91-18 18:46:00 Test Item Value Reference Range Interpretation Comments Total Protein (test code = Total 6.9 6.4-8.4 Protein) [facility] HospitalFgrcbxfXFDRBIUUME8318-52-26 18:46:00 Test Item Value Reference Range Interpretation Comments Eosinophils (test code = 4.2 See_Comment [A utomated message] The Eosinophils) system which ge nerated this result tra nsmitted reference range : <=4.0. The reference r mitra was not used to int erpret this result as normal/abnormal . [facility] HospitalQdluijqYBJSFMTIEN8915-16-75 18:46:00 Test Item Value Reference Range Interpretation Comments Segs (test code = Segs) 56.4 45.0-75.0 [facility] HospitalXxxffcgDDNJHJOEKJ7691-90-07 18:46:00 Test Item Value Reference Range Interpretation Comments Monocytes (test code = Monocytes) 10.3 2.0-12.0 [facility] HospitalTszgykvLPZCVNIXJC7222-68-00 18:46:00 Test Item Value Reference Range Interpretation Comments Lymphocytes (test code = Lymphocytes) 28.0 20.0-40.0 [facility] HospitalQcyfgdjYXWACMPZCG6596-40-99 18:46:00 Test Item Value Reference Range Interpretation Comments Monocytes # (test code 0.5 See_Comment [Aut omated message] The = Monocytes #) system which generated this result tra nsmitted reference range : <=0.8. The reference r mitra was not used to int erpret this result as normal/abnormal . [facility] HospitalNwgwzggANGNUZMEIB8602-51-76 18:46:00 Test Item Value Reference Range Interpretation Comments Basophils (test code = 1.1 See_Comment [Aut omated message] The Basophils) system which ge nerated this result tra nsmitted reference range : <=1.0. The reference r mitra was not used to int erpret this result as normal/abnormal . [facility] HospitalCneqvfqDEQGCPZOOY2633-13-02 18:46:00 Test Item Value Reference Range Interpretation Comments Lymphocytes # (test code = Lymphocytes 1.5 1.0-5.5 #) [facility] HospitalSbnwyjpHYMWZZBUEE7447-75-01 18:46:00 Test Item Value Reference Range Interpretation Comments Segs-Bands # (test code = Segs-Bands #) 2.9 1.5-8.1 [facility] H[id number] 18:46:00 Test Item Value Reference Range Interpretation Comments Eosinophils # (test code 0.2 See_Comment [A utomated message] The = Eosinophils #) system whic h generated this result tra nsmitted reference range : <=0.5. The reference r mitra was not used to int erpret this result as normal/abnormal . [facility] HospitalXdivocmYUKJLNELNC9140-06-14 18:46:00 Test Item Value Reference Range Interpretation Comments Basophils # (test code 0.1 See_Comment [Aut omated message] The = Basophils #) system which generated this result tra nsmitted reference range : <=0.2. The reference r mitra was not used to int erpret this result as normal/abnormal . [facility] HospitalSttdiduLALBVDFQIS3104-51-68 18:46:00 Test Item Value Reference Range Interpretation Comments PT (test code = PT) 11.2 s 12.0-14.7 [facility] HospitalLayhqpmUVHIRBHKIH4295-45-05 18:46:00 Test Item Value Reference Range Interpretation Comments INR (test code = INR) 0.82 0.85-1.17 [facility] HospitalEhihtrfYFLEWQYQYX1079-85-54 18:46:00 Test Item Value Reference Range Interpretation Comments PTT (test code = PTT) 28.6 s 22.9-35.8 [facility] HospitalSrmguekLIUDNJVXLM4544-30-18 18:46:00 Test Item Value Reference Range Interpretation Comments MPV (test code = MPV) 8.1 7.4-10.4 [facility] HospitalGwntvdkTYPOMLWIYL1941-88-08 18:46:00 Test Item Value Reference Range Interpretation Comments Platelet (test code = Platelet) 301 133-450 [facility] HospitalQwcrwwiUACSDBMMUY8139-66-98 18:46:00 Test Item Value Reference Range Interpretation Comments RDW (test code = RDW) 14.5 11.5-14.5 [facility] HospitalMgcchdpYEDWVIYWTU4973-05-49 18:46:00 Test Item Value Reference Range Interpretation Comments RBC (test code = RBC) 4.84 4.70-6.10 [facility] HospitalGkllnfcGZONBDOTTN2599-76-25 18:46:00 Test Item Value Reference Range Interpretation Comments Hgb (test code = Hgb) 14.4 14.0-18.0 [facility] Hospit[id number] 18:46:00 Test Item Value Reference Range Interpretation Comments WBC (test code = WBC) 5.2 3.7-10.4 [facility]WsipxjfSUALBIXKJT4827-97-88 18:46:00 Test Item Value Reference Range Interpretation Comments MCH (test code = MCH) 29.8 pg 27.0-31.0 [facility] HospitalHqatybtEVUCRXKBFV7773-16-79 18:46:00 Test Item Value Reference Range Interpretation Comments MCV (test code = MCV) 92.0 80.0-94.0 [facility]IumdrplFFWPXVJYMC4246-32-51 18:46:00 Test Item Value Reference Range Interpretation Comments Hct (test code = Hct) 44.5 42.0-54.0 [facility] HospitalCwtnpqqDWUKMMXZVF9945-74-53 18:46:00 Test Item Value Reference Range Interpretation Comments MCHC (test code = MCHC) 32.4 32.0-36.0 [facility]HvqvpxaTPEYXJJJQH5151-97-19 18:46:00 Test Item Value Reference Range Interpretation Comments [place]-Hep C Ab (test Negative *NA*(07/22/14 code = [place]-Hep C 1:46 PM) Ab) [facility] AND [id number] 18:46:00 Test Item Value Reference Range Interpretation Comments UA Urobilinogen (test code = UA <=1.0 mg/dL 0.1-1.0 Urobilinogen) [facility] AND [id number] 18:46:00 Test Item Value Reference Range Interpretation Comments UA Sq Epi (test code = UA Sq Epi) None Seen [facility] AND [id number] 18:46:00 Test Item Value Reference Range Interpretation Comments UA Leuk Est (test Negative (07/22/14 1:46 code = UA Leuk Est) PM) [facility] AND [id number] 18:46:00 Test Item Value Reference Range Interpretation Comments UA Nitrite (test code Negative (07/22/14 1:46 = UA Nitrite) PM) [facility] AND [id number] 18:46:00 Test Item Value Reference Range Interpretation Comments UA Blood (test code = Negative (07/22/14 1:46 UA Blood) PM) [facility] AND [id number] 18:46:00 Test Item Value Reference Range Interpretation Comments UA Ketones (test code = UA Negative mg/dL Ketones) [facility] AND [id number] 18:46:00 Test Item Value Reference Range Interpretation Comments UA Bili (test code = Negative *NA*(07/22/14 UA Bili) 1:46 PM) [facility] AND [id number] 18:46:00 Test Item Value Reference Range Interpretation Comments UA Bacteria (test code = UA Occasional /HPF Bacteria) [facility] AND [id number] 18:46:00 Test Item Value Reference Range Interpretation Comments UA RBC (test code = no gt See_Comment [Automa elizabeth message] The UA RBC) system which ge nerated this result transmit elizabeth reference range : <=2. The reference range was not used to interpr et this result as lukas l/abnormal. [facility] AND [id number] 18:46:00 Test Item Value Reference Range Interpretation Comments UA WBC (test code = 1 See_Comment [Automa elizabeth message] The UA WBC) system which ge nerated this result transmit elizabeth reference range : <=5. The reference range was not used to interpr et this result as lukas l/abnormal. [facility] AND [id number] 18:46:00 Test Item Value Reference Range Interpretation Comments UA Glucose (test code = UA Glucose) 30 mg/dL [facility] AND [id number] 18:46:00 Test Item Value Reference Range Interpretation Comments UA Protein (test code = UA Negative mg/dL Protein) [facility] AND [id number] 18:46:00 Test Item Value Reference Range Interpretation Comments UA pH (test code = UA pH) 6.5 5.0-8.0 [facility] AND [id number] 18:46:00 Test Item Value Reference Range Interpretation Comments UA Turbidity (test code = Clear (07/22/14 1:46 UA Turbidity) PM) [facility] AND [id number] 18:46:00 Test Item Value Reference Range Interpretation Comments UA Spec Grav (test code = UA Spec Grav) 1.010 [facility] AND [id number] 18:46:00 Test Item Value Reference Range Interpretation Comments UA Color (test code = Light Yellow UA Color) *NA*(07/22/14 1:46 PM) [facility] [id number] 18:46:00 Test Item Value Reference Range Interpretation Comments Magnesium Lvl (test code = Magnesium 1.8 1.8-2.4 Lvl) [facility] SurgerySltmhxnDUUMSQRKKQLY9865-52-63 18:46:00 Test Item Value Reference Range Interpretation Comments AGAP (test code = AGAP) 13.2 10.0-20.0 [facility] SurgeryRunmpbpRRROHCPGCWMR1645-44-15 18:46:00 Test Item Value Reference Range Interpretation Comments B/C Ratio (test code = B/C Ratio) 18 6-25 [facility] SurgeryAnerkioISAKRDGXQMUC8398-84-61 18:46:00 Test Item Value Reference Range Interpretation Comments A/G Ratio (test code = A/G Ratio) 1.1 0.7-1.6 [facility] SurgeryYpxvnbnAYKDUDSXXXQM4492-35-31 18:46:00 Test Item Value Reference Range Interpretation Comments Globulin (test code = Globulin) 3.3 2.0-4.0 [facility] SurgeryAimegizJLDVJIBIRXEO8556-11-82 18:46:00 Test Item Value Reference Range Interpretation Comments eGFR (test code = eGFR) 99 [facility] SurgeryZvcjbtxANTHOUPCTJVC0434-93-04 18:46:00 Test Item Value Reference Range Interpretation Comments Calcium Lvl (test code = Calcium Lvl) 9.0 8.5-10.5 [facility] SurgeryIpgabynPHLEDWNOHYAI7764-98-80 18:46:00 Test Item Value Reference Range Interpretation Comments Chloride Lvl (test code = Chloride Lvl) 106 95-109 [facility] SurgeryVkruxxqSCHTDYVYSKZI8720-15-56 18:46:00 Test Item Value Reference Range Interpretation Comments Creatinine Lvl (test code = Creatinine 0.9 0.5-1.4 Lvl) [facility] SurgeryKwawtuwVKWXZYAKCWJW9476-81-05 18:46:00 Test Item Value Reference Range Interpretation Comments Potassium Lvl (test code = Potassium 4.2 3.5-5.1 Lvl) [facility] SurgeryCskesluCQOPFCNNQBZH9855-09-10 18:46:00 Test Item Value Reference Range Interpretation Comments Sodium Lvl (test code = Sodium Lvl) 139 135-145 [facility] SurgeryRfbisjvSTQZEPIHFKUR8576-25-13 18:46:00 Test Item Value Reference Range Interpretation Comments CO2 (test code = CO2) 24 24-32 [facility] SurgeryCkeclfnFRPCYFAFNSND9519-51-90 18:46:00 Test Item Value Reference Range Interpretation Comments BUN (test code = BUN) 16 7-22 [facility] SurgeryNgvikwgJJEWETRYBLIF8769-32-96 18:46:00 Test Item Value Reference Range Interpretation Comments Glucose Lvl (test code = Glucose Lvl) 141 70-99 [facility] SurgeryZlppgktFNWUMFYMRRFF6218-16-85 18:46:00 Test Item Value Reference Range Interpretation Comments Albumin Lvl (test code = Albumin Lvl) 3.6 3.5-5.0 [facility] SurgeryGdagkojWDLZYJXTKCXF5047-83-76 18:46:00 Test Item Value Reference Range Interpretation Comments Alk Phos (test code = Alk Phos) 65 39-136 [facility] SurgeryGfcgnyvXIPMWHIIBBFN4950-56-05 18:46:00 Test Item Value Reference Range Interpretation Comments Bili Total (test code = Bili Total) 0.3 0.2-1.3 [facility] SurgeryEwecszoVPVWXJLOPMGW9665-79-71 18:46:00 Test Item Value Reference Range Interpretation Comments ALT (test code = ALT) 100 See_Comment [Auto mated message] The system which ge nerated this result transmit elizabeth reference range : <=65. The reference range was not used to interpr et this result as lukas l/abnormal. [facility] SurgeryQdnimslXWXHHIKBJPPM9463-32-15 18:46:00 Test Item Value Reference Range Interpretation Comments AST (test code = AST) 53 See_Comment [Auto mated message] The system which ge nerated this result transmit elizabeth reference range : <=37. The reference range was not used to interpr et this result as lukas l/abnormal. [facility] SurgeryCzjyqxwLOAXZCEZDXPS4464-45-31 18:46:00 Test Item Value Reference Range Interpretation Comments Total Protein (test code = Total 6.9 6.4-8.4 Protein) [facility] HospitalRyomsryNGMPPKSVEO0170-16-01 18:46:00 Test Item Value Reference Range Interpretation Comments Eosinophils (test code = 4.2 See_Comment [A utomated message] The Eosinophils) system which ge nerated this result tra nsmitted reference range : <=4.0. The reference r mitra was not used to int erpret this result as normal/abnormal . [facility] HospitalZdhyadqVHIXRDMZKH0526-04-29 18:46:00 Test Item Value Reference Range Interpretation Comments Segs (test code = Segs) 56.4 45.0-75.0 [facility] HospitalKeacqqaISOBPMANZS3839-25-67 18:46:00 Test Item Value Reference Range Interpretation Comments Monocytes (test code = Monocytes) 10.3 2.0-12.0 [facility] HospitalHjkxbniZDKRURMULP1149-16-91 18:46:00 Test Item Value Reference Range Interpretation Comments Lymphocytes (test code = Lymphocytes) 28.0 20.0-40.0 [facility] HospitalGdghkpsOCUBPATGFO9248-36-86 18:46:00 Test Item Value Reference Range Interpretation Comments Monocytes # (test code 0.5 See_Comment [Aut omated message] The = Monocytes #) system which generated this result tra nsmitted reference range : <=0.8. The reference r mitra was not used to int erpret this result as normal/abnormal . [facility] HospitalBcfymdeTBPHZBXWUX8827-95-07 18:46:00 Test Item Value Reference Range Interpretation Comments Basophils (test code = 1.1 See_Comment [Aut omated message] The Basophils) system which ge nerated this result tra nsmitted reference range : <=1.0. The reference r mitra was not used to int erpret this result as normal/abnormal . [facility] HospitalAtpxtzeVLJJCDWYHD8746-34-90 18:46:00 Test Item Value Reference Range Interpretation Comments Lymphocytes # (test code = Lymphocytes 1.5 1.0-5.5 #) [facility] HospitalUewylcwLABWXMXCJL4834-86-99 18:46:00 Test Item Value Reference Range Interpretation Comments Segs-Bands # (test code = Segs-Bands #) 2.9 1.5-8.1 [facility] HospitalMilfehyOMFCPIBPXB3161-63-89 18:46:00 Test Item Value Reference Range Interpretation Comments Eosinophils # (test code 0.2 See_Comment [A utomated message] The = Eosinophils #) system whic h generated this result tra nsmitted reference range : <=0.5. The reference r mitra was not used to int erpret this result as normal/abnormal . [facility] HospitalYpefqptHQJSYSCJWJ6429-03-45 18:46:00 Test Item Value Reference Range Interpretation Comments Basophils # (test code 0.1 See_Comment [Aut omated message] The = Basophils #) system which generated this result tra nsmitted reference range : <=0.2. The reference r mitra was not used to int erpret this result as normal/abnormal . [facility] HospitalGldgjxhCBXLYABOWJ1454-77-51 18:46:00 Test Item Value Reference Range Interpretation Comments PT (test code = PT) 11.2 s 12.0-14.7 [facility] HospitalDgyazpoATNSZCQKJR4677-22-12 18:46:00 Test Item Value Reference Range Interpretation Comments INR (test code = INR) 0.82 0.85-1.17 [facility] HospitalEnedmtoVELSCJCCIK0517-40-23 18:46:00 Test Item Value Reference Range Interpretation Comments PTT (test code = PTT) 28.6 s 22.9-35.8 [facility] HospitalMegmbdzCUMAKESFAZ6481-78-63 18:46:00 Test Item Value Reference Range Interpretation Comments MPV (test code = MPV) 8.1 7.4-10.4 [facility] HospitalTecyrzsDELZBICCBL4725-06-69 18:46:00 Test Item Value Reference Range Interpretation Comments Platelet (test code = Platelet) 301 133-450 [facility] HospitalFtnhsefWXKOOPVAJK4443-97-78 18:46:00 Test Item Value Reference Range Interpretation Comments RDW (test code = RDW) 14.5 11.5-14.5 [facility] HospitalYkduxofAGTMBDHYWR3190-25-34 18:46:00 Test Item Value Reference Range Interpretation Comments RBC (test code = RBC) 4.84 4.70-6.10 [facility] HospitalEajvocrBRZKYFQXDJ0732-33-59 18:46:00 Test Item Value Reference Range Interpretation Comments Hgb (test code = Hgb) 14.4 14.0-18.0 [facility] HospitalPhinkniXLTWSPJGVD1313-47-06 18:46:00 Test Item Value Reference Range Interpretation Comments WBC (test code = WBC) 5.2 3.7-10.4 [facility] HospitalWmvrsmlUDLINVCXRL4065-46-79 18:46:00 Test Item Value Reference Range Interpretation Comments MCH (test code = MCH) 29.8 pg 27.0-31.0 [facility] HospitalRyxoaniZAGSHYXHSS8492-37-13 18:46:00 Test Item Value Reference Range Interpretation Comments MCV (test code = MCV) 92.0 80.0-94.0 [facility] HospitalRdhurefUFHISIXVDD5187-02-56 18:46:00 Test Item Value Reference Range Interpretation Comments Hct (test code = Hct) 44.5 42.0-54.0 [facility] HospitalWarsjqvLRTSNXPQGR6902-88-44 18:46:00 Test Item Value Reference Range Interpretation Comments MCHC (test code = MCHC) 32.4 32.0-36.0 [facility] CenterTbvmzcrTKBINMLQSF4514-27-31 18:46:00 Test Item Value Reference Range Interpretation Comments [place]-Hep C Ab (test Negative *NA*(07/22/14 code = [place]-Hep C 1:46 PM) Ab) [facility] AND [id number] 18:46:00 Test Item Value Reference Range Interpretation Comments UA Urobilinogen (test code = UA <=1.0 mg/dL 0.1-1.0 Urobilinogen) [facility] AND [id number] 18:46:00 Test Item Value Reference Range Interpretation Comments UA Sq Epi (test code = UA Sq Epi) None Seen [facility] AND [id number] 18:46:00 Test Item Value Reference Range Interpretation Comments UA Leuk Est (test Negative (07/22/14 1:46 code = UA Leuk Est) PM) [facility] AND [id number] 18:46:00 Test Item Value Reference Range Interpretation Comments UA Nitrite (test code Negative (07/22/14 1:46 = UA Nitrite) PM) [facility] AND [id number] 18:46:00 Test Item Value Reference Range Interpretation Comments UA Blood (test code = Negative (07/22/14 1:46 UA Blood) PM) [facility] AND [id number] 18:46:00 Test Item Value Reference Range Interpretation Comments UA Ketones (test code = UA Negative mg/dL Ketones) [facility] AND [id number] 18:46:00 Test Item Value Reference Range Interpretation Comments UA Bili (test code = Negative *NA*(07/22/14 UA Bili) 1:46 PM) [facility] AND [id number] 18:46:00 Test Item Value Reference Range Interpretation Comments UA Bacteria (test code = UA Occasional /HPF Bacteria) [facility] AND [id number] 18:46:00 Test Item Value Reference Range Interpretation Comments UA RBC (test code = no gt See_Comment [Automa elizabeth message] The UA RBC) system which ge nerated this result transmit elizabeth reference range : <=2. The reference range was not used to interpr et this result as lukas l/abnormal. [facility] AND [id number] 18:46:00 Test Item Value Reference Range Interpretation Comments UA WBC (test code = 1 See_Comment [Automa elizabeth message] The UA WBC) system which ge nerated this result transmit elizabeth reference range : <=5. The reference range was not used to interpr et this result as lukas l/abnormal. [facility] AND [id number] 18:46:00 Test Item Value Reference Range Interpretation Comments UA Glucose (test code = UA Glucose) 30 mg/dL [facility] AND [id number] 18:46:00 Test Item Value Reference Range Interpretation Comments UA Protein (test code = UA Negative mg/dL Protein) [facility] AND [id number] 18:46:00 Test Item Value Reference Range Interpretation Comments UA pH (test code = UA pH) 6.5 5.0-8.0 [facility] AND [id number] 18:46:00 Test Item Value Reference Range Interpretation Comments UA Turbidity (test code = Clear (07/22/14 1:46 UA Turbidity) PM) [facility] AND [id number] 18:46:00 Test Item Value Reference Range Interpretation Comments UA Spec Grav (test code = UA Spec Grav) 1.010 [facility] AND [id number] 18:46:00 Test Item Value Reference Range Interpretation Comments UA Color (test code = Light Yellow UA Color) *NA*(07/22/14 1:46 PM) [facility] [id number] 18:46:00 Test Item Value Reference Range Interpretation Comments Magnesium Lvl (test code = Magnesium 1.8 1.8-2.4 Lvl) [facility] SurgeryWtpgbjuMCDSNMJKAYOR2694-72-81 18:46:00 Test Item Value Reference Range Interpretation Comments AGAP (test code = AGAP) 13.2 10.0-20.0 [facility] SurgeryGwtuwtwDJBCDPOEQCBA2644-67-78 18:46:00 Test Item Value Reference Range Interpretation Comments B/C Ratio (test code = B/C Ratio) 18 6-25 [facility] SurgeryXtysmkcTTACFJQMLLTU6176-34-61 18:46:00 Test Item Value Reference Range Interpretation Comments A/G Ratio (test code = A/G Ratio) 1.1 0.7-1.6 [facility] SurgeryGdhtzhxSMUFSZZVGRDB9451-17-34 18:46:00 Test Item Value Reference Range Interpretation Comments Globulin (test code = Globulin) 3.3 2.0-4.0 [facility] SurgeryAcpziafYONLKPBHHRWP8075-85-07 18:46:00 Test Item Value Reference Range Interpretation Comments eGFR (test code = eGFR) 99 [facility] SurgeryQxgfcsfBQCXJWSQBTBP7040-91-89 18:46:00 Test Item Value Reference Range Interpretation Comments Calcium Lvl (test code = Calcium Lvl) 9.0 8.5-10.5 [facility] SurgeryRnlnlapRPGZKQEJXUSZ4869-66-10 18:46:00 Test Item Value Reference Range Interpretation Comments Chloride Lvl (test code = Chloride Lvl) 106 95-109 [facility] SurgeryIiqgvzxFCBPGTDBTKVL3845-29-21 18:46:00 Test Item Value Reference Range Interpretation Comments Creatinine Lvl (test code = Creatinine 0.9 0.5-1.4 Lvl) [facility] SurgeryBioknbkRQAHXMSTLEUV7385-25-56 18:46:00 Test Item Value Reference Range Interpretation Comments Potassium Lvl (test code = Potassium 4.2 3.5-5.1 Lvl) [facility] SurgeryYaoggtbIJRDMVWCQUIY7193-70-91 18:46:00 Test Item Value Reference Range Interpretation Comments Sodium Lvl (test code = Sodium Lvl) 139 135-145 [facility] SurgeryTthsnrqOMDJEQFASHCX5042-98-93 18:46:00 Test Item Value Reference Range Interpretation Comments CO2 (test code = CO2) 24 24-32 [facility] Su[id number] 18:46:00 Test Item Value Reference Range Interpretation Comments BUN (test code = BUN) 16 7-22 [facility] SurgeryTvppqjeQZCOHBXYGIBQ6455-62-15 18:46:00 Test Item Value Reference Range Interpretation Comments Glucose Lvl (test code = Glucose Lvl) 141 70-99 [facility] SurgeryVocxwtyPIBGKPCYPCHY9188-99-15 18:46:00 Test Item Value Reference Range Interpretation Comments Albumin Lvl (test code = Albumin Lvl) 3.6 3.5-5.0 [facility] SurgeryVfmkagrGFIQCLAKAGCO5968-57-15 18:46:00 Test Item Value Reference Range Interpretation Comments Alk Phos (test code = Alk Phos) 65 39-136 [facility] SurgeryBncxgdvTQTMIZYGCDXJ4328-27-92 18:46:00 Test Item Value Reference Range Interpretation Comments Bili Total (test code = Bili Total) 0.3 0.2-1.3 [facility] SurgeryHkomlgsNZVKCYLAXITB9504-19-33 18:46:00 Test Item Value Reference Range Interpretation Comments ALT (test code = ALT) 100 See_Comment [Auto mated message] The system which ge nerated this result transmit elizabeth reference range : <=65. The reference range was not used to interpr et this result as lukas l/abnormal. [facility] SurgeryAnirbxmYNKQWFBJCSFR5160-93-60 18:46:00 Test Item Value Reference Range Interpretation Comments AST (test code = AST) 53 See_Comment [Auto mated message] The system which ge nerated this result transmit elizabeth reference range : <=37. The reference range was not used to interpr et this result as lukas l/abnormal. [facility] SurgeryGjqxhhxZNKWVGADYWOU2295-78-13 18:46:00 Test Item Value Reference Range Interpretation Comments Total Protein (test code = Total 6.9 6.4-8.4 Protein) [facility] HospitalBherzagDQGMGEVWGB5522-84-81 18:46:00 Test Item Value Reference Range Interpretation Comments Eosinophils (test code = 4.2 See_Comment [A utomated message] The Eosinophils) system which ge nerated this result tra nsmitted reference range : <=4.0. The reference r mitra was not used to int erpret this result as normal/abnormal . [facility] HospitalOwhdpafJJNAVODIOL5917-90-98 18:46:00 Test Item Value Reference Range Interpretation Comments Segs (test code = Segs) 56.4 45.0-75.0 [facility] HospitalWksygxfNHVXJHYVDA1501-90-56 18:46:00 Test Item Value Reference Range Interpretation Comments Monocytes (test code = Monocytes) 10.3 2.0-12.0 [facility] HospitalPobbvtxTBEMDQTFKM6941-81-08 18:46:00 Test Item Value Reference Range Interpretation Comments Lymphocytes (test code = Lymphocytes) 28.0 20.0-40.0 [facility] HospitalWiacqzaBOJQCQSUYY8724-01-03 18:46:00 Test Item Value Reference Range Interpretation Comments Monocytes # (test code 0.5 See_Comment [Aut omated message] The = Monocytes #) system which generated this result tra nsmitted reference range : <=0.8. The reference r mitra was not used to int erpret this result as normal/abnormal . [facility] HospitalEzcnalmFNFFVFRVFH7699-96-09 18:46:00 Test Item Value Reference Range Interpretation Comments Basophils (test code = 1.1 See_Comment [Aut omated message] The Basophils) system which ge nerated this result tra nsmitted reference range : <=1.0. The reference r mitra was not used to int erpret this result as normal/abnormal . [facility] HospitalRbduqodVWNJJBSFGF0472-75-96 18:46:00 Test Item Value Reference Range Interpretation Comments Lymphocytes # (test code = Lymphocytes 1.5 1.0-5.5 #) [facility] HospitalBqlpryuAOYQNLKHAL4213-34-20 18:46:00 Test Item Value Reference Range Interpretation Comments Segs-Bands # (test code = Segs-Bands #) 2.9 1.5-8.1 [facility] HospitalKvxeslmVWVLICIQHH5780-11-01 18:46:00 Test Item Value Reference Range Interpretation Comments Eosinophils # (test code 0.2 See_Comment [A utomated message] The = Eosinophils #) system whic h generated this result tra nsmitted reference range : <=0.5. The reference r mitra was not used to int erpret this result as normal/abnormal . [facility] HospitalChqapycAOWCNZBPDM3170-15-73 18:46:00 Test Item Value Reference Range Interpretation Comments Basophils # (test code 0.1 See_Comment [Aut omated message] The = Basophils #) system which generated this result tra nsmitted reference range : <=0.2. The reference r mitra was not used to int erpret this result as normal/abnormal . [facility] HospitalWpgbtxiLDGYEGDSLM6100-42-73 18:46:00 Test Item Value Reference Range Interpretation Comments PT (test code = PT) 11.2 s 12.0-14.7 [facility] HospitalPaaojvgHDHXNJJGHT2526-25-34 18:46:00 Test Item Value Reference Range Interpretation Comments INR (test code = INR) 0.82 0.85-1.17 [facility] HospitalBvohigxCSHTNLZGQV0115-03-93 18:46:00 Test Item Value Reference Range Interpretation Comments PTT (test code = PTT) 28.6 s 22.9-35.8 [facility] HospitalTlibgvwTDAWYLNJXB1974-60-49 18:46:00 Test Item Value Reference Range Interpretation Comments MPV (test code = MPV) 8.1 7.4-10.4 [facility] HospitalOuyjxdpLNYSJEVORR7420-81-07 18:46:00 Test Item Value Reference Range Interpretation Comments Platelet (test code = Platelet) 301 133-450 [facility] HospitalAfkzmcnNQNVMPAHNG0116-65-74 18:46:00 Test Item Value Reference Range Interpretation Comments RDW (test code = RDW) 14.5 11.5-14.5 [facility] HospitalNzfwntpHTKIZZSQTW0529-03-76 18:46:00 Test Item Value Reference Range Interpretation Comments RBC (test code = RBC) 4.84 4.70-6.10 [facility] HospitalPxbcktjNAXUQLQLZG6303-09-74 18:46:00 Test Item Value Reference Range Interpretation Comments Hgb (test code = Hgb) 14.4 14.0-18.0 [facility] HospitalUpfvhyeNVUXNGKGAT0724-21-40 18:46:00 Test Item Value Reference Range Interpretation Comments WBC (test code = WBC) 5.2 3.7-10.4 [facility] H[id number] 18:46:00 Test Item Value Reference Range Interpretation Comments MCH (test code = MCH) 29.8 pg 27.0-31.0 [facility] [id number] 18:46:00 Test Item Value Reference Range Interpretation Comments MCV (test code = MCV) 92.0 80.0-94.0 [facility] [id number] 18:46:00 Test Item Value Reference Range Interpretation Comments Hct (test code = Hct) 44.5 42.0-54.0 [facility] [id number] 18:46:00 Test Item Value Reference Range Interpretation Comments MCHC (test code = MCHC) 32.4 32.0-36.0 [facility] [id number] 18:46:00 Test Item Value Reference Range Interpretation Comments [place]-Hep C Ab (test Negative *NA*(07/22/14 code = [place]-Hep C 1:46 PM) Ab) [facility] AND [id number] 18:46:00 Test Item Value Reference Range Interpretation Comments UA Urobilinogen (test code = UA <=1.0 mg/dL 0.1-1.0 Urobilinogen) [facility] AND [id number] 18:46:00 Test Item Value Reference Range Interpretation Comments UA Sq Epi (test code = UA Sq Epi) None Seen [facility] AND [id number] 18:46:00 Test Item Value Reference Range Interpretation Comments UA Leuk Est (test Negative (07/22/14 1:46 code = UA Leuk Est) PM) [facility] AND [id number] 18:46:00 Test Item Value Reference Range Interpretation Comments UA Nitrite (test code Negative (07/22/14 1:46 = UA Nitrite) PM) [facility] AND [id number] 18:46:00 Test Item Value Reference Range Interpretation Comments UA Blood (test code = Negative (07/22/14 1:46 UA Blood) PM) [facility] AND [id number] 18:46:00 Test Item Value Reference Range Interpretation Comments UA Ketones (test code = UA Negative mg/dL Ketones) [facility] AND [id number] 18:46:00 Test Item Value Reference Range Interpretation Comments UA Bili (test code = Negative *NA*(07/22/14 UA Bili) 1:46 PM) [facility] [id number] 18:46:00 Test Item Value Reference Range Interpretation Comments UA Bacteria (test code = UA Occasional /HPF Bacteria) [facility] [id number] 18:46:00 Test Item Value Reference Range Interpretation Comments UA RBC (test code = no gt See_Comment [Automa elizabeth message] The UA RBC) system which ge nerated this result transmit elizabeth reference range : <=2. The reference range was not used to interpr et this result as lukas l/abnormal. [facility] AND [id number] 18:46:00 Test Item Value Reference Range Interpretation Comments UA WBC (test code = 1 See_Comment [Automa elizabeth message] The UA WBC) system which ge nerated this result transmit elizabeth reference range : <=5. The reference range was not used to interpr et this result as lukas l/abnormal. [facility] AND [id number] 18:46:00 Test Item Value Reference Range Interpretation Comments UA Glucose (test code = UA Glucose) 30 mg/dL [facility] AND [id number] 18:46:00 Test Item Value Reference Range Interpretation Comments UA Protein (test code = UA Negative mg/dL Protein) [facility] AND [id number] 18:46:00 Test Item Value Reference Range Interpretation Comments UA pH (test code = UA pH) 6.5 5.0-8.0 [facility] AND [id number] 18:46:00 Test Item Value Reference Range Interpretation Comments UA Turbidity (test code = Clear (07/22/14 1:46 UA Turbidity) PM) [facility] AND [id number] 18:46:00 Test Item Value Reference Range Interpretation Comments UA Spec Grav (test code = UA Spec Grav) 1.010 [facility] AND [id number] 18:46:00 Test Item Value Reference Range Interpretation Comments UA Color (test code = Light Yellow UA Color) *NA*(07/22/14 1:46 PM) [facility] [id number] 18:46:00 Test Item Value Reference Range Interpretation Comments Magnesium Lvl (test code = Magnesium 1.8 1.8-2.4 Lvl) [facility] [id number] 18:46:00 Test Item Value Reference Range Interpretation Comments AGAP (test code = AGAP) 13.2 10.0-20.0 [facility] Surgery[id number] 18:46:00 Test Item Value Reference Range Interpretation Comments B/C Ratio (test code = B/C Ratio) 18 6-25 [facility] Surgery[id number] 18:46:00 Test Item Value Reference Range Interpretation Comments A/G Ratio (test code = A/G Ratio) 1.1 0.7-1.6 [facility] Surgery[id number] 18:46:00 Test Item Value Reference Range Interpretation Comments Globulin (test code = Globulin) 3.3 2.0-4.0 [facility] Surgery[id number] 18:46:00 Test Item Value Reference Range Interpretation Comments eGFR (test code = eGFR) 99 [facility] Surgery[id number] 18:46:00 Test Item Value Reference Range Interpretation Comments Calcium Lvl (test code = Calcium Lvl) 9.0 8.5-10.5 [facility] Surgery[id number] 18:46:00 Test Item Value Reference Range Interpretation Comments Chloride Lvl (test code = Chloride Lvl) 106 95-109 [facility] SurgeryGsklisiADDYUGVHRPHB7232-30-73 18:46:00 Test Item Value Reference Range Interpretation Comments Creatinine Lvl (test code = Creatinine 0.9 0.5-1.4 Lvl) [facility] Surgery[id number] 18:46:00 Test Item Value Reference Range Interpretation Comments Potassium Lvl (test code = Potassium 4.2 3.5-5.1 Lvl) [facility] SurgerySefrluvFYPPBFNTKHDK8705-82-48 18:46:00 Test Item Value Reference Range Interpretation Comments Sodium Lvl (test code = Sodium Lvl) 139 135-145 [facility] Surgery[id number] 18:46:00 Test Item Value Reference Range Interpretation Comments CO2 (test code = CO2) 24 24-32 [facility] Surgery[id number] 18:46:00 Test Item Value Reference Range Interpretation Comments BUN (test code = BUN) 16 7-22 [facility] SurgeryKjtqjdcZVXXLOGPOOAI1612-26-55 18:46:00 Test Item Value Reference Range Interpretation Comments Glucose Lvl (test code = Glucose Lvl) 141 70-99 [facility] SurgeryOaudbwsYIHIKZTLKLKT6957-07-49 18:46:00 Test Item Value Reference Range Interpretation Comments Albumin Lvl (test code = Albumin Lvl) 3.6 3.5-5.0 [facility] Surgery[id number] 18:46:00 Test Item Value Reference Range Interpretation Comments Alk Phos (test code = Alk Phos) 65 39-136 [facility] SurgeryUbebscnGQLVLDDWFKDY5305-01-77 18:46:00 Test Item Value Reference Range Interpretation Comments Bili Total (test code = Bili Total) 0.3 0.2-1.3 [facility] Surgery[id number] 18:46:00 Test Item Value Reference Range Interpretation Comments ALT (test code = ALT) 100 See_Comment [Auto mated message] The system which ge nerated this result transmit elizabeth reference range : <=65. The reference range was not used to interpr et this result as lukas l/abnormal. [facility] SurgeryJcyvcoiUNDMEOZNIMPH4593-67-20 18:46:00 Test Item Value Reference Range Interpretation Comments AST (test code = AST) 53 See_Comment [Auto mated message] The system which ge nerated this result transmit elizabeth reference range : <=37. The reference range was not used to interpr et this result as lukas l/abnormal. [facility] SurgeryVypohyuICOWIKQCXSAX6338-21-79 18:46:00 Test Item Value Reference Range Interpretation Comments Total Protein (test code = Total 6.9 6.4-8.4 Protein) [facility] HospitalKtsrajmCVICFDPODS8948-12-93 18:46:00 Test Item Value Reference Range Interpretation Comments Eosinophils (test code = 4.2 See_Comment [A utomated message] The Eosinophils) system which ge nerated this result tra nsmitted reference range : <=4.0. The reference r mitra was not used to int erpret this result as normal/abnormal . [facility] HospitalSqkcrlxTHPVCBPMQV1696-60-57 18:46:00 Test Item Value Reference Range Interpretation Comments Segs (test code = Segs) 56.4 45.0-75.0 [facility] Hospit[id number] 18:46:00 Test Item Value Reference Range Interpretation Comments Monocytes (test code = Monocytes) 10.3 2.0-12.0 [facility] HospitalNgsbwmqMGKQTYRPVS1733-41-94 18:46:00 Test Item Value Reference Range Interpretation Comments Lymphocytes (test code = Lymphocytes) 28.0 20.0-40.0 [facility] HospitalUxcwicqIRVQEJLNXL5761-13-75 18:46:00 Test Item Value Reference Range Interpretation Comments Monocytes # (test code 0.5 See_Comment [Aut omated message] The = Monocytes #) system which generated this result tra nsmitted reference range : <=0.8. The reference r mitra was not used to int erpret this result as normal/abnormal . [facility] HospitalLmiwklsDQKMFWCLXP7489-35-56 18:46:00 Test Item Value Reference Range Interpretation Comments Basophils (test code = 1.1 See_Comment [Aut omated message] The Basophils) system which ge nerated this result tra nsmitted reference range : <=1.0. The reference r mitra was not used to int erpret this result as normal/abnormal . [facility] HospitalCygybrdRCRVOWTEJK7992-20-18 18:46:00 Test Item Value Reference Range Interpretation Comments Lymphocytes # (test code = Lymphocytes 1.5 1.0-5.5 #) [facility] Hospit[id number] 18:46:00 Test Item Value Reference Range Interpretation Comments Segs-Bands # (test code = Segs-Bands #) 2.9 1.5-8.1 [facility] HospitalHotedgdBNHIPBQOES9759-38-16 18:46:00 Test Item Value Reference Range Interpretation Comments Eosinophils # (test code 0.2 See_Comment [A utomated message] The = Eosinophils #) system whic h generated this result tra nsmitted reference range : <=0.5. The reference r mitra was not used to int erpret this result as normal/abnormal . [facility] HospitalUptflqtIOMBNTYWDY7059-07-55 18:46:00 Test Item Value Reference Range Interpretation Comments Basophils # (test code 0.1 See_Comment [Aut omated message] The = Basophils #) system which generated this result tra nsmitted reference range : <=0.2. The reference r mitra was not used to int erpret this result as normal/abnormal . [facility] HospitalXqcfmmuEIMQZYHSRY1862-57-81 18:46:00 Test Item Value Reference Range Interpretation Comments PT (test code = PT) 11.2 s 12.0-14.7 [facility] HospitalHwtugsrTIJEEFVBGF7806-10-91 18:46:00 Test Item Value Reference Range Interpretation Comments INR (test code = INR) 0.82 0.85-1.17 [facility] HospitalKpmsvqvVLSVXGVUNM9351-93-19 18:46:00 Test Item Value Reference Range Interpretation Comments PTT (test code = PTT) 28.6 s 22.9-35.8 [facility] HospitalRgvxbrcCERILNVOVC3876-95-14 18:46:00 Test Item Value Reference Range Interpretation Comments MPV (test code = MPV) 8.1 7.4-10.4 [facility] HospitalIscpspeYPCGQWYRLX3927-08-46 18:46:00 Test Item Value Reference Range Interpretation Comments Platelet (test code = Platelet) 301 133-450 [facility] HospitalGtozoxaBHAUAFFMIL3191-14-49 18:46:00 Test Item Value Reference Range Interpretation Comments RDW (test code = RDW) 14.5 11.5-14.5 [facility] HospitalGksixstYQCJIMPAWE0504-59-99 18:46:00 Test Item Value Reference Range Interpretation Comments RBC (test code = RBC) 4.84 4.70-6.10 [facility] HospitalPivvqmuFMFNSXTXUP3990-71-93 18:46:00 Test Item Value Reference Range Interpretation Comments Hgb (test code = Hgb) 14.4 14.0-18.0 [facility] HospitalUwhnqzcKCNCDSOIAX0742-12-84 18:46:00 Test Item Value Reference Range Interpretation Comments WBC (test code = WBC) 5.2 3.7-10.4 [facility] HospitalHehinipJNXBCGVWKQ4143-88-85 18:46:00 Test Item Value Reference Range Interpretation Comments MCH (test code = MCH) 29.8 pg 27.0-31.0 [facility] HospitalLkhdtbnCZRIRNEPYO2250-59-52 18:46:00 Test Item Value Reference Range Interpretation Comments MCV (test code = MCV) 92.0 80.0-94.0 [facility] HospitalYkxgmicBLKYSNEEIF2772-71-33 18:46:00 Test Item Value Reference Range Interpretation Comments Hct (test code = Hct) 44.5 42.0-54.0 [facility] HospitalXhgcebyPVJGJSOAUP3166-56-56 18:46:00 Test Item Value Reference Range Interpretation Comments MCHC (test code = MCHC) 32.4 32.0-36.0 [facility]EcsijglMCWPCCHVUJ0386-43-66 18:46:00 Test Item Value Reference Range Interpretation Comments [place]-Hep C Ab (test Negative *NA*(07/22/14 code = [place]-Hep C 1:46 PM) Ab) [facility] AND [id number] 18:46:00 Test Item Value Reference Range Interpretation Comments UA Urobilinogen (test code = UA <=1.0 mg/dL 0.1-1.0 Urobilinogen) [facility] AND [id number] 18:46:00 Test Item Value Reference Range Interpretation Comments UA Sq Epi (test code = UA Sq Epi) None Seen [facility] AND [id number] 18:46:00 Test Item Value Reference Range Interpretation Comments UA Leuk Est (test Negative (07/22/14 1:46 code = UA Leuk Est) PM) [facility] AND [id number] 18:46:00 Test Item Value Reference Range Interpretation Comments UA Nitrite (test code Negative (07/22/14 1:46 = UA Nitrite) PM) [facility] AND [id number] 18:46:00 Test Item Value Reference Range Interpretation Comments UA Blood (test code = Negative (07/22/14 1:46 UA Blood) PM) [facility] AND [id number] 18:46:00 Test Item Value Reference Range Interpretation Comments UA Ketones (test code = UA Negative mg/dL Ketones) [facility] AND [id number] 18:46:00 Test Item Value Reference Range Interpretation Comments UA Bili (test code = Negative *NA*(07/22/14 UA Bili) 1:46 PM) [facility] AND [id number] 18:46:00 Test Item Value Reference Range Interpretation Comments UA Bacteria (test code = UA Occasional /HPF Bacteria) [facility] AND [id number] 18:46:00 Test Item Value Reference Range Interpretation Comments UA RBC (test code = no gt See_Comment [Automa elizabeth message] The UA RBC) system which ge nerated this result transmit elizabeth reference range : <=2. The reference range was not used to interpr et this result as lukas l/abnormal. [facility] AND [id number] 18:46:00 Test Item Value Reference Range Interpretation Comments UA WBC (test code = 1 See_Comment [Automa elizabeth message] The UA WBC) system which ge nerated this result transmit elizabeth reference range : <=5. The reference range was not used to interpr et this result as lukas l/abnormal. [facility] [id number] 18:46:00 Test Item Value Reference Range Interpretation Comments UA Glucose (test code = UA Glucose) 30 mg/dL [facility] [id number] 18:46:00 Test Item Value Reference Range Interpretation Comments UA Protein (test code = UA Negative mg/dL Protein) [facility] [id number] 18:46:00 Test Item Value Reference Range Interpretation Comments UA pH (test code = UA pH) 6.5 5.0-8.0 [facility] [id number] 18:46:00 Test Item Value Reference Range Interpretation Comments UA Turbidity (test code = Clear (07/22/14 1:46 UA Turbidity) PM) [facility] [id number] 18:46:00 Test Item Value Reference Range Interpretation Comments UA Spec Grav (test code = UA Spec Grav) 1.010 [facility] [id number] 18:46:00 Test Item Value Reference Range Interpretation Comments UA Color (test code = Light Yellow UA Color) *NA*(07/22/14 1:46 PM) [facility] [id number] 18:46:00 Test Item Value Reference Range Interpretation Comments Magnesium Lvl (test code = Magnesium 1.8 1.8-2.4 Lvl) [facility] IxceahvWJGTJGEOIHQS8718-52-71 18:46:00 Test Item Value Reference Range Interpretation Comments AGAP (test code = AGAP) 13.2 10.0-20.0 [facility] Notes Date/Time Note Provider Source 2017-01-31 21:00:10-00:00 [facility] Discharge Summary PATIENT NAME: CHARO KAYE PHYSICIAN: Royal Reed Admitted: MR NUMBER: [id number] DISCHARGED: 01/04/2017 12:2 2:00 DATE OF ADMISSION: 12/23/2016 DATE OF DISCHARGE: 01/04/2017 REASON FOR ADMISSION: The patient was admitted for a chief complaint o f disorganized thoughts and behaviors, apparent delusions. He was brought to [facility] by the [facility] custodial after he was arrested on criminal mi schief. While in custodial, he displayed disorganized behavior and disorganized thoughts, [...] receives Social Security, re cently released from penitentiary and poor social support. PRINCIPAL PROCEDURES: Psychopharmacotherapy. [...] resolution of his Patient Name: CHARO KAYE [id number] admitting symptoms, of disorganized behavior, di sorganized [...] RESTRICTIONS: None. FOLLOWUP: Patient Name: CHARO KAYE [id number] The patient has a followup appointment scheduled with [facility] in [place] on 01/23/2017 at 1:30 p.m. and has [...] The patient has also met with the criminal justice social worker to obtain appropriate followup report. The importance on following through with this plan has been review ed with the patient. The patient understands that compliance will be cruc ial to his recovery. He has been given the [facility] hotline number and the information about the [facility], if he wishes to obtain t herapy. MD Ramana Winn MD /BECKY TD: 01/16/2017 02:03 CC:Ramana Shea MD Electronically Authenticated by: Royal Miller MD On 01/17/2017 02:55 PM ESTIMATING ENGINEER Electronically Authenticated by: Ramana Shea MD On 02/15/2017 12:47 PM ESTIMATING ENGINEER 2017-01-06 13:35:23-00:00 [facility] Progress Note PATIENT NAME: CHARO KAYE PHYSICIAN: Shiva hopper MD Admitted: MR NUMBER: [id number] DISCHARGED: DATE OF SERVICE: 12/30/2016 TIME SEEN: 16:40. SUBJECTIVE: I was asked to see this patient by Dr. Ramana salazar's service, particularly resident, Dr. Miller, with regard to this patient' s condition. Apparently, this patient was brought in with roberto e form of psychosis and altered mental status from [facility]. Apparently, there was concern [...] performed in his upper thigh region abo id a couple years ago and apparently he [...] He states that care was received at [facility] with regards to t his issue. PHYSICAL EXAMINATION: VITAL SIGNS: Temperature 98.0 degrees Fahrenheit , heart rate 81, respiratory rate 16, blood pressure 135/81. GENERAL: This patient is talking to me, appears focused, at times inappropriate with some of the answers I give hi m; however, when redirected appears to be making sensible speech. He knows alina elizabeth is at [facility]. [facility] Progress Note PATIENT NAME: CHARO KAYE PHYSICIAN: Shiva hopper MD Admitted: MR NUMBER: [id number] DISCHARGED: DATE OF SERVICE: 12/30/2016 TIME SEEN: 16:40. SUBJECTIVE: I was asked to see this patient by Dr. Ramana salazar's service, particularly resident, Dr. Miller, with regard to this patient' s condition. Apparently, this patient was brought in with roberto e form of psychosis and altered mental status from [facility]. Apparently, there was concern [...] performed in his upper thigh region abo id a couple years ago and apparently he [...] a DVT the year prior and appfortino cabreray was on anticoagulation, then had issues with his leg be coming swollen and having clot burden all the way from the foot to the thi gh. He states that care was received at [facility] with regards to t his issue. PHYSICAL EXAMINATION: VITAL SIGNS: Temperature 98.0 degrees Fahrenheit , heart rate 81, respiratory rate 16, blood pressure 135/81. GENERAL: This patient is talking to me, appears focused, at times inappropriate with some of the answers I give hi m; however, when redirected appears to be making sensible speech. He knows h giselle is at [facility]. Patient Name: CHARO KAYE [id number] CHEST: Clear to auscultation bilaterally. No whe [...] medical issues here. Patient Name: CHARO KAYE [id number] CHEST: Clear to auscultation bilaterally. No whe [...] medical issues here. Patient Name: CHARO KAYE [id number] We will continue to follow. MD PEDRO Currie/AURORA/CTV TD: 12/30/2016 18:08 Patient Name: CHARO KAYE [id number] We will continue to follow. MD PEDRO Currie/AURORA/CTV TD: 12/30/2016 18:08 Electronically Authenticated by: Shiva Stack MD On 01/06/2017 12:12 PM [facility] 2017-01-05 17:10:42-00:00 [facility] History and Physical PATIENT NAME: CHRISTOPHERCHARO PHYSICIAN: Lisa rockwell MD Admitted: MR NUMBER: [id number] DISCHARGED: DATE OF SERVICE: 12/24/2016 The patient was seen and examined today. CONSULTING PHYSICIAN: Ramana Shea MD. REASON FOR CONSULTATION: Medical management. HISTORY OF PRESENT ILLNESS: The patient is a 55-year-old gentleman , an extremely unreliable and poor historian. Does not answer appropriately, a pparently transferred here from [facility] for bizarre behavior. At [...] Could not obtain. PERSONAL HISTORY: He is [facility] resident. He does have a [...] No spinal or CVA tenderness. [facility] History and Physical LUNGS: Vesicular breath [...] or concern. MD NATHALIE Gray/JESSI/MAX [facility] History and Physical TD: 12/24/2016 17:03 Electronically Authenticated and Edited by: Lisa Beard MD On 01/05/2017 05:10 PM ESTIMATING ENGINEER 2016-12-30 16:09:20-00:00 [facility] History and Physical PATIENT NAME: CHARO KAYE PHYSICIAN: Jose David Francisco Admitted: MR NUMBER: [id number] DISCHARGED: ATTENDING PHYSICIAN: Ramana Shea MD INFORMANT: The patient residential warrant. CHIEF COMPLAINT: "I'm hungry." HISTORY OF PRESENT ILLNESS: Mr. Charo Kaye is a 55-year-old male with self- reported past psychiatric history of bipolar disorder, depression, anxiety , PTSD, alcohol use, that presented from [facility] on a detenti on warrant secondary to smearing fecal matter on surrounding responding to internal stimuli, not eating or drinking.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
[2022-07-21 03:44] LABS: Protime INR 1.07
[2022-07-21 03:45] LABS: Absolute Lymphocytes (CBC) 0.9 K/uL (0.7-4.9); Hematocrit 31.1 % (39.6-49.0); Lymphocytes % 19.5 % (15.3-44.8); MCV 86.2 fL (80-100); MPV 6.6 fL (7.6-11.3); RBC Red Blood Cell Count 3.61 M/uL (4.33-5.43)
[2022-07-21 03:52] LABS: Barbiturates NEGATIVE (NEGATIVE); Benzodiazepines NEGATIVE (NEGATIVE); Cocaine NEGATIVE (NEGATIVE); METHAMPHETAM NEGATIVE (NEGATIVE); Methadone NEGATIVE (NEGATIVE); Opiates NEGATIVE (NEGATIVE); Phencyclidine NEGATIVE (NEGATIVE); THC Cannibis NEGATIVE (NEGATIVE)
[2022-07-21 03:55] LABS: SARS-CoV-2 Antigen Rapid Res Negative (Negative)
[2022-07-21 04:03] LABS: ALT/SGPT 24 U/L (16-61); AST/SGOT 15 U/L (15-37); Albumin 3.8 g/dL (3.4-5.0); Alkaline Phosphatase 103 U/L (45-117); BUN Blood Urea Nitrogen 13 mg/dL (7-18); Bicarbonate 24 mEq/L (21-32); Bilirubin Direct 0.1 mg/dL (0-0.2); Bilirubin Indirect, Calculated 0.3 mg/dL (0.2-0.8); Bilirubin Total 0.4 mg/dL (0.2-1.0); Glomerular Filtration Rate 100 ml/min (=/>90); Glucose Level 95 mg/dL (74-106); Magnesium 2.4 mg/dL (1.6-2.4); NT PRO-BNP 55 pg/mL (<125); Potassium 3.9 mEq/L (3.5-5.1); Protein, Total 7.7 g/dL (6.4-8.2); Sodium Level 135 mEq/L (136-145); Troponin High Sensitivity 6.7 pg/mL (<58.9)
[2022-07-21 04:07] LABS: Renal Epithelial <5 /HPF (None Seen); Specific Gravity 1.006 (1.005-1.030); Urine Bacteria None Seen /HPF (<20); Urine Bilirubin NEGATIVE (Negative); Urine Blood Negative (Negative); Urine Clarity Clear (Clear); Urine Color Colorless (Yellow); Urine Glucose NEGATIVE (Negative); Urine Protein NEGATIVE (Negative); Urine RBC None Seen /HPF (None Seen); Urine Urobilinogen Normal (Normal); Urine pH 5.5 (5.0-7.0)
[2022-07-21] MEDS ORDERED: ONDANSETRON 4 MG/2 ML VIAL ONE (04:32)
[2022-07-21] MEDS ORDERED: NA CHLORIDE 0.9% 1,000 ML ONE (04:32)
[2022-07-21] MEDS ORDERED: KETOROLAC 30 MG/ML INJ ONE (04:32)
[2022-07-21] MEDS ORDERED: ENOXAPARIN 100 MG/ML SYR SQ ONE (04:41)
--- NOTE | 2022-07-21 07:14 | EDPHYS ---
Physician Documentation [facility] Name: Kevin Kaye Age: 61 yrs Sex: Male : 1960 Arrival Date: 07/21/2022 Time: 02:43 Bed 15 Private MD: ED Physician Felipe Aiken HPI: 07/21 04:24 This 61 yrs old Male presents to ER via EMS with complaints of Delusions. sp4 04:24 61-year-old male well-known to me from prior visits to this emergency room presents sp4 with onset of acute delusions. Patient was brought in by EMS and also with the police escort who wrote up patient's JHON. JHON states that patient was at the local gas station , patient had bizarre behavior, pressured speech, delusions, poor comprehension of his surroundings, patient reported that he has not been at home for several days because he is afraid that people are waiting for him at home to kill him. Patient also states he believes he was being injected substances. Based on patient's delusions JHON was written by the police sergeant precinct of [place] and patient was delivered here for further assessment. Patient himself has reported that he is not currently delusional. He is dipping tobacco on exam and is reporting pain and swelling of the right lower extremity.. 04:26 Patient was seen here yesterday 5 times and advised transfer to [facility] in [place] for sp4 extensive DVT of the right lower extremity. Patient eventually walked out over the emergency room refusing medical care. . 04:32 Ultrasound Results 07/16/2022 IMPRESSION: 1. Right DPA demonstrates decreased sp4 velocities and monophasic waveforms, suggesting nonvisualized proximal stenosis. 2. No occlusion or other hemodynamically significant stenosis of the right lower extremity. Electronically signed by: Arnold Ayoub MD 07/16/2022 6:38 AM - Lower Extremity [facility] - 07/16/2022 4:[address] Abdomen / Pelvis 07/16/2022 IMPRESSION: 1. Partially visualized thrombus noted in the right common iliac through common femoral vein, as well as within the left femoral vein. No pulmonary embolism. 2. Infrarenal IVC stent redemonstrated with nonocclusive thrombus noted along the medial margin of the stent lumen. 3. Redemonstrated 2 x 1.6 cm lucent lesion involving the left lateral aspect of the T11 vertebra, barely extending into the adjacent pedicle. Findings suspicious for plasmacytoma/multiple myeloma versus lytic bony metastasis. Further characterization by contrast-enhanced thoracic spine MRI or PET scan recommended. 4. Moderate degenerative changes of the right hip with sclerotic changes, subchondral cyst formation, and slight superior femoral head cortical collapse. 5. Moderate-sized fatty mass with internal septations measuring approximately 8.7 x 4.7 x 9 centimeters, immediately lateral to the right inguinal canal (axial images 93/111). Suspicious for lipoma. Consider further characterization by multiphase MRI to evaluate for internal enhancement. 07/16/2022 6:[address] angio Chest 07/16/2022 AORTA: No acute findings. No aortic aneurysm. No dissection. PULMONARY ARTERIES: Unremarkable as visualized. No pulmonary embolism is identified. GREAT VESSELS OF AORTIC ARCH: No acute findings. No dissection. No arterial occlusion or significant stenosis. LUNGS: Unremarkable. No mass. No consolidation. PLEURAL SPACE: Unremarkable. No significant effusion. No pneumothorax. HEART: Unremarkable. No cardiomegaly. No significant pericardial effusion. . Historical: - Allergies: 03:03 Unable to obtain; lg3 - Home Meds: 03:03 Unable to obtain [Active]; lg3 - PMHx: 03:03 Anxiety; Bipolar disorder; Depression; DVT; Schizophrenia; lg3 - PSHx: 03:03 Unable to Obtain; lg3 - Immunization history:: Adult Immunizations unknown. - Social history:: Smoking status: unknown. ROS: 04:49 Constitutional: Negative for fever, chills, and weight loss, positive for acute sp4 delusions otherwise ROS not available secondary to uncooperative patient Psych: Negative for depression, anxiety, positive for paranoid delusions 04:49 Unable to obtain ROS due to patient being uncooperative. Exam: 04:49 Constitutional: This is a well developed, well nourished patient who is awake, alert, sp4 patient is ill-appearing, poor personal hygiene, uncooperative, cussing on examination, refusing medications. No obvious delusions on exam. Head/Face: Normocephalic, atraumatic. Eyes: Pupils equal round and reactive to light, extra-ocular motions intact. Lids and lashes normal. Conjunctiva and sclera are not injected. Cornea within normal limits. Periorbital areas with no swelling, redness, or edema. ENT: Nares patent. No nasal discharge, no septal abnormalities noted. Tympanic membranes are normal and external auditory canals are clear. Oropharynx with no redness, swelling, or masses, exudates, or evidence of obstruction, uvula midline. Poor dentition. Effects of the tobacco in the mouth. Neck: Trachea midline, no thyromegaly or masses palpated, and no cervical lymphadenopathy. Supple, full range of motion without nuchal rigidity, or vertebral point tenderness. Chest/axilla: Normal chest wall appearance and motion. Nontender with no deformity. No lesions are appreciated. Cardiovascular: Regular rate and rhythm with a normal S1 and S2. No gallops, murmurs, or rubs. Normal PMI, no JVD. No pulse deficits. Respiratory: Lungs have equal breath sounds bilaterally, clear to auscultation and percussion. No rales, rhonchi or wheezes noted. No increased work of breathing, no retractions or nasal flaring. Abdomen/GI: Soft, non-tender, with normal bowel sounds. No distension or tympany. No guarding or rebound. No evidence of tenderness throughout. Back: No spinal tenderness. No costovertebral tenderness. Male : Normal genitalia with no discharge or lesions. Skin: Warm, dry with normal turgor. Normal color with no rashes, no lesions, and no evidence of cellulitis. MS/ Extremity: Pulses equal, no cyanosis. Neurovascular intact. Bilateral lower extremity edema with pitting, right lower extremity more edematous and swollen than left, intact peripheral arterial pulses. Neuro: Awake and alert, GCS 15, oriented to person, place, not oriented to time, cranial nerves II-XII grossly intact. Motor strength 5/5 in all extremities. Sensory grossly intact. There is some agitation on exam which limits the examination Psych: Awake, alert, with orientation to person, place , restlessness and agitation on exam emotional upset, uncooperative patient 04:49 ECG was reviewed by the Attending Physician. Sinus rhythm with a rate of 82, muscle sp4 tremor artifact, EKG time 0 334, no ST elevation or depression, no ectopy Vital Signs: 03:26 BP 118 / 55; Pulse 74; Resp 17 S; Temp 98.1(TE); Pulse Ox 100% on R/A; lg3 03:33 Weight 86.18 kg; Height 5 ft. 6 in. ; kd3 04:15 BP 146 / 57; Pulse 80; Resp 16 S; Pulse Ox 97% on R/A; aa9 04:36 BP 132 / 56; Pulse 80; Resp 16 S; Pulse Ox 100% on R/A; aa9 05:30 BP 114 / 54; Pulse 80; Resp 16; Pulse Ox 97% on 3 lpm NC; aa9 06:30 BP 132 / 60; Pulse 80; Resp 16 S; Pulse Ox 94% on 3 lpm NC; aa9 07:22 BP 122 / 62; Pulse 71; Resp 18 S; Pulse Ox 93% on 3 lpm NC; kc6 08:08 BP 120 / 78; Pulse 71; Resp 16; Pulse Ox 98% on 3 lpm NC; ko1 09:08 BP 137 / 73; Pulse 75; Resp 18 S; Pulse Ox 100% on 3 lpm NC; kc6 09:45 BP 127 / 74; Pulse 66; Resp 18; Pulse Ox 99% ; ko1 10:18 BP 127 / 83; Pulse 67; Resp 19 S; Pulse Ox 100% on 3 lpm NC; kc6 11:12 BP 123 / 68; Pulse 73; Resp 16 S; Pulse Ox 99% on R/A; kc6 11:52 BP 130 / 65; Pulse 70; Resp 17 S; Pulse Ox 100% on R/A; kc6 14:47 BP 108 / 49; Pulse 71; Resp 16; Pulse Ox 95% on R/A; iw 14:47 BP 109 / 52; Pulse 72; Resp 16; Pulse Ox 100% on 3 lpm NC; iw 17:21 BP 124 / 69; Pulse 67; Resp 16; Pulse Ox 99% on R/A; db 18:00 BP 128 / 49; Pulse 66; Resp 18; Pulse Ox 100% on R/A; db 03:33 Body Mass Index 30.67 (86.18 kg, 167.64 cm) kd3 MDM: 02:50 Patient medically screened. sp4 04:53 Data reviewed: vital signs, nurses notes, lab test result(s), EKG, radiologic studies. sp4 ED course: CT head and brain. IMPRESSION: 1. There is no evidence of acute intracranial pathology. No significant change when compared to the prior study. 2. Mild mucosal thickening of the maxillary sinuses. . ED course: DVT scan FINDINGS: Grayscale and color Doppler images of the deep veins of the right lower extremity was performed. The grayscale images reveal incomplete compressibility of the deep veins. The Doppler images reveal evidence of flow and phasicity with respiration favoring persistent nonocclusive thrombus. The color flow images reveal incomplete saturation of flow within the deep veins of the right lower extremity. Grayscale and color Doppler images of the deep veins of the left lower extremity was performed. The grayscale images reveal incomplete compressibility of the deep veins. The Doppler images reveal evidence of flow and phasicity with respiration favoring persistent nonocclusive thrombus. The color flow images reveal incomplete saturation of flow within the deep veins of the left lower extremity. There is reticulation of the subcutaneous fat consistent with bilateral lower extremity edema.. IMPRESSION: Sonographic findings consistent with persistent nonocclusive thrombus throughout the right and left lower extremities as described above. Electronically signed by: Chitra Corado DO 07/21/2022 4:41 AM. 05:00 Differential diagnosis: vascular injury, DVT, acute metabolic encephalopathy, acute sp4 hyperactive delirium, delirium tremens, restlessness and agitation. ED course: Chest x-ray revealed no acute cardiopulmonary abnormality, patient has improved with respect to agitation after Geodon and Ativan intramuscular injections. This time will obtain CT chest abdomen pelvis with IV contrast to evaluate for right common iliac thrombus as was noted on a prior CT abdomen pelvis done on 07/16/2022. 07:08 Consideration of Admission/Observation Escalation of care including sp4 admission/observation considered. Management of patient was discussed with the following: Hospitalist: Patient discussed with admission team, they advised that patient has a left renal mass and is not a candidate for admission here. Transition of care:. ED course: CT abdomen / pelvis / chest - FINDINGS: Vascular: Thoracic aorta is normal in course and caliber without aneurysm or dissection. There is thrombus along the wall of the stent. There is also possible thrombus within the right femoral and iliac vasculature. There is a stent within the infrarenal IVC. Pelvic arteries are patent without aneurysm or occlusion. Chest: The heart is mildly enlarged. There is no pericardial effusion. Intrathoracic lymph nodes are not enlarged. There is no pleural effusion, pleural thickening or pneumothorax. Central airways are patent. There is mild bibasilar atelectasis. Abdomen: Liver is fatty in attenuation. There is no biliary dilatation. Gallbladder is normal in appearance. The pancreas and spleen are normal in appearance. Small left adrenal mass measures 11 mm. Right adrenal gland is normal. Right kidney is unremarkable. Anterior mid pole left renal mass measures 2.4 cm. There is no free air. There is no retroperitoneal adenopathy. Pelvis: There is no bowel obstruction. Urinary bladder is decompressed with a Gill catheter within. There is no free fluid. Appendix is not clearly seen. There is a large lipoma within the right groin measuring at least 10 cm. Skeleton: There is edema throughout the right thigh subcutaneous fat. Lucent lesion within the left side of the T11 vertebral body is unchanged. IMPRESSION: Suspicious left renal mass, representing a renal cell carcinoma until proven otherwise. Redemonstration of right pelvic and upper thigh venous thrombi. . ED course: Patient presenting with acute delusional disorder, uncooperative, well-known to this ER for multiple prior visits for bilateral lower extremity DVTs, presents today essentially with delirium, encephalopathy, and chronic bilateral lower extremity DVTs also left renal mass. Patient had to be given Ativan and Geodon fog and cooperative behavior in the ER to facilitate work-up. Transfer was [facility] for multiple medical issues including left renal mass also acute onset encephalopathy associated with hyperactive delirium. Care was transferred to Dr. Barfield at the end of my shift . 07:10 ED course: pt under JHON, pt has medical conditions and was signed out pending admission bs3 to [facility] for renal mass but would benefit from treatment of his psychiatric illness, will transfer to [facility] due to lack of facility in [facility], pt had been see at [facility] for the renal mass which does not need inpatient treatment. He is following at [facility] for this. . 18:25 ED course: Patient is currently alert and oriented x4, in no apparent distress, ms3 nontoxic-appearing, ambulatory in the emergency department. Patient denies suicidal ideation, homicidal ideation, or hallucinations at this time. Patient is without tangential thinking. Patient stating he would like to be discharged at this time.. 07/21 02:50 Order name: Basic Metabolic Panel; Complete Time: 04:48 sp4 07/21 02:50 Order name: CBC with Diff; Complete Time: 03:57 sp4 07/21 02:50 Order name: LFT's; Complete Time: 04:48 sp4 07/21 02:50 Order name: Magnesium; Complete Time: 04:48 sp4 07/21 02:50 Order name: NT PRO-BNP; Complete Time: 04:48 sp4 08 02:50 Order name: PT-INR; Complete Time: 03:57 sp4 07/21 02:50 Order name: Troponin HS; Complete Time: 04:48 sp4 07/21 03:05 Order name: Alcohol Level; Complete Time: 03:57 sp4 08 03:05 Order name: Salicylate; Complete Time: 03:57 sp4 07/21 03:05 Order name: Urinalysis W/Microscopic; Complete Time: 04:48 sp4 07/21 03:05 Order name: Urine Drug Screen; Complete Time: 03:57 sp4 07/21 03:05 Order name: SARS RAPID; Complete Time: 03:57 sp4 07/21 03:05 Order name: Influenza Screen (a \T\ B); Complete Time: 04:48 sp4 07/21 03:32 Order name: Acetaminophen Level; Complete Time: 04:48 EDMS 08 04:07 Order name: T4 Free; Complete Time: 04:48 EDMS 08 02:50 Order name: XRAY Chest (1 view); Complete Time: 18:22 sp4 07/21 02:50 Order name: Extrem Venous W Compression Denilson US; Complete Time: 18:22 sp4 07/21 03:06 Order name: CT Head Brain wo Cont; Complete Time: 18:22 sp4 07/21 04:59 Order name: CT Chest, Abdomen, Pelvis - W/Contrast; Complete Time: 18:22 sp4 07/21 11:42 Order name: Diet Heart Healthy; Complete Time: 11:42 kc6 07/21 02:50 Order name: Cardiac monitoring; Complete Time: 03:25 sp4 07/21 02:50 Order name: EKG - Nurse/Tech; Complete Time: 03:25 sp4 07/21 02:50 Order name: IV Saline Lock; Complete Time: 03:25 sp4 07/21 02:50 Order name: Labs collected and sent; Complete Time: 03:25 sp4 07/21 02:50 Order name: O2 Per Protocol; Complete Time: 03:25 sp4 07/21 02:50 Order name: O2 Sat Monitoring; Complete Time: 03:25 sp4 07/21 03:05 Order name: Gill; Complete Time: 03:25 sp4 EC:49 Rate is 82 beats/min. Rhythm is regular, Normal Sinus Rhythm. QRS [place] is Normal. MI sp4 interval is normal. QRS interval is normal. QT interval is normal. T waves are Normal. No ST changes noted. Clinical impression: No evidence of ischemia. Interpreted by me. Administered Medications: 03:08 Drug: Geodon IM 40 mg Route: IM; Site: right vastus lateralis; lg3 03:08 Drug: LORazepam IM 2 mg Route: IM; Site: right vastus lateralis; lg3 04:32 Drug: Ondansetron IVP 4 mg Route: IVP; Site: right antecubital; aa9 18:26 Follow up: Response: No adverse reaction db 04:32 Drug: Ketorolac IVP 30 mg Route: IVP; Site: right antecubital; aa9 18:26 Follow up: Response: No adverse reaction db 04:32 Drug: NS 0.9% IV 1000 ml Route: IV; Rate: 75 ml/hr; Site: right antecubital; aa9 04:35 Drug: Enoxaparin Sub-Q 90 mg Route: Sub-Q; Site: right lower abdomen; aa9 18:26 Follow up: Response: No adverse reaction db 13:36 Drug: Acetaminophen PO 650 mg Route: PO; iw 18:26 Follow up: Response: No adverse reaction db 14:46 Drug: HALdol (as decanoate) IM 5 mg Route: IM; Site: right deltoid; iw 18:26 Follow up: Response: No adverse reaction db 14:46 Not Given (Physician Discretion): Midazolam IM 5 mg IM once iw 14:46 Drug: Midazolam IVP or IV 4 mg Route: IVP; Site: right antecubital; iw 18:26 Follow up: Response: No adverse reaction db Disposition Summary: 07/21/22 18:25 Discharge Ordered Location: Home ms3 Condition: Stable(07/21/22 18:25) ms3 Diagnosis - Deep venous thrombosus ms3 - Bipolar disorder, unspecified ms3 - Other schizophrenia ms3 Followup: ms3 - With: Private Physician - When: 2 - 3 days - Reason: Recheck today's complaints Discharge Instructions: - Discharge Summary Sheet ms3 - Deep Vein Thrombosis ms3 - Schizophrenia ms3 - Managing Bipolar Disorder ms3 Forms: - Medication Reconciliation Form ms3 - Thank You Letter ms3 - Antibiotic Education ms3 - Prescription Opioid Use ms3 Signatures: Dispatcher [employer] EDMS Lizabeth Bryant, RN RN iw Pushpa Andre RN RN lg3 Felipe Aiken DO DO ms3 Martha Lima RN RN aa9 Shni Barfield MD MD bs3 Akhil Finnegan MD MD sp4 Ariela Pina RN db Corrections: (The following items were deleted from the chart) 03:31 03:05 ACETAMINOPHEN+C.LAB.BRZ ordered. EDMS EDMS 04:08 03:34 T4 FREE+C.LAB.BRZ ordered. EDMS EDMS 18:23 07:13 [facility] Attending sp4 ms3 18:23 07:13 [facility] sp4 ms3 18:23 07:13 Higher level of care sp4 ms3 18:23 07:13 Stable sp4 ms3 18:23 07:13 new sp4 ms3 18:23 07:13 have improved sp4 ms3 18:23 07:13 Encephalopathy, unspecified sp4 ms3 18:23 07:13 Acute hyperactive delirium, bilateral lower extremity nonocclusive DVT chronic, ms3 restlessness and agitation, agitation requiring sedation protocol, acute delusional disorder, left renal mass sp4
--- NOTE | 2022-07-21 07:14 | ER ---
Nurse's Notes [facility] Name: Kevin Kaye Age: 61 yrs Sex: Male : 1960 Arrival Date: 07/21/2022 Time: 02:43 Bed 15 Private MD: Diagnosis: Deep venous thrombosus;Bipolar disorder, unspecified;Other schizophrenia Presentation: 07/21 03:01 Chief complaint: EMS states: toned out to [facility] by PD for combative patient lg3 with hallucinations/delusions. PT brought in with [place] [facility] on [facility]. pt complains of right leg pain. Coronavirus screen: Client denies travel out of the [place] in the last 14 days. At this time, the client does not indicate any symptoms associated with coronavirus-19. Ebola Screen: No symptoms or risks identified at this time. Risk Assessment: Do you want to hurt yourself or someone else? Patient reports no desire to harm self or others. Onset of symptoms is unknown. 03:01 Method Of Arrival: EMS: [facility] lg3 03:01 Acuity: ARI 3 lg3 03:28 Initial Sepsis Screen: Does the patient meet any 2 criteria? No. Patient's initial lg3 sepsis screen is negative. Does the patient have a suspected source of infection? No. Patient's initial sepsis screen is negative. Triage Assessment: 03:03 General: Appears unkempt, Behavior is anxious, combative, restless, uncooperative. lg3 Pain: Complains of pain in right leg. EENT: No deficits noted. No signs and/or symptoms were reported regarding the EENT system. Neuro: Patten Agitation-Sedation Scale (RASS): +3 Very Agitated Level of Consciousness is awake, stuporous, Oriented to person, place. Cardiovascular: No deficits noted. Denies chest pain, shortness of breath, Capillary refill < 3 seconds Clubbing of nail beds is absent JVD is absent Patient's skin is warm and dry. Respiratory: No deficits noted. Airway is patent Respiratory effort is even, unlabored, Respiratory pattern is regular, symmetrical. GI: No deficits noted. No signs and/or symptoms were reported involving the gastrointestinal system. : No deficits noted. No signs and/or symptoms were reported regarding the genitourinary system. Derm: Skin is intact, Skin is dry, Skin is normal, Skin temperature is warm reddening and swelling noted to right leg. Musculoskeletal: Circulation, motion, and sensation intact. Range of motion: intact in all extremities, Swelling present in right leg. Historical: - Allergies: 03:03 Unable to obtain; lg3 - Home Meds: 03:03 Unable to obtain [Active]; lg3 - PMHx: 03:03 Anxiety; Bipolar disorder; Depression; DVT; Schizophrenia; lg3 - PSHx: 03:03 Unable to Obtain; lg3 - Immunization history:: Adult Immunizations unknown. - Social history:: Smoking status: unknown. Screenin:28 [facility] ED Fall Risk Assessment (Adult) History of falling in the last 3 months, lg3 including since admission No falls in past 3 months (0 pts). Abuse screen: Denies threats or abuse. Denies injuries from another. Nutritional screening: No deficits noted. Tuberculosis screening: No symptoms or risk factors identified. Assessment: 04:36 Reassessment: Patient appears in no apparent distress at this time. pt high folwers in aa9 stretcher, breathing equal and regular, eyes closed, VS WNL. 04:56 Reassessment: pt O2 sat at 85 on room air, placed on NC \\T\\ 3 LPM, O2 sat at 94. aa9 07:00 Reassessment: Patient and/or family updated on plan of care and expected duration. Pain kc6 level reassessed. Patient is alert, oriented x 3, equal unlabored respirations, skin warm/dry/pink. General: Appears in no apparent distress. comfortable, Behavior is calm, cooperative, appropriate for age. 08:00 Reassessment: Patient appears in no apparent distress at this time. Patient and/or kc6 family updated on plan of care and expected duration. Pain level reassessed. 09:00 Reassessment: Patient appears in no apparent distress at this time. Patient and/or kc6 family updated on plan of care and expected duration. Pain level reassessed. 09:03 Reassessment: Spoke with Smita CORONADO from [facility]. Patient needs east out and ko1 void before they can take him. 10:00 Reassessment: Patient appears in no apparent distress at this time. Patient and/or kc6 family updated on plan of care and expected duration. Pain level reassessed. Patient is alert, oriented x 3, equal unlabored respirations, skin warm/dry/pink. 10:21 Reassessment: Loretta Winn (sister) [phone]. kc6 11:00 Reassessment: Patient appears in no apparent distress at this time. Patient and/or kc6 family updated on plan of care and expected duration. Pain level reassessed. Patient is alert, oriented x 3, equal unlabored respirations, skin warm/dry/pink. 11:39 Reassessment: pt states he would like to get up and walk. educated pt on not being kc6 stable enough to get up and walk at this time as he could fall. pt states, "no one is going to tell me what to do!" pt appears to be lunging out of bed and pulled at equipment. danielle johns called. CLIFF wiley at bedside. 14:40 Reassessment: pt yelling at staff, beating on door, [employer] at bedside, Dr. Barfield notified iw of pt behavior, new orders placed. 15:04 Reassessment: pt sleeping, placed on 3 L NC, pt in recliner chair. iw 16:15 Reassessment: spoke with CLIFF Riley at [facility] , states pt was declined due iw to not having an appropriate medical bed, I advised Rosemary that the pt has a chronic DVT that is not acute, she will call her DON and get back with me. 17:30 Reassessment: Patient appears in no apparent distress at this time. Patient and/or db family updated on plan of care and expected duration. Pain level reassessed. Patient is alert, oriented x 3, equal unlabored respirations, skin warm/dry/pink. patient is sleeping. 17:30 Reassessment:. db 18:36 Reassessment: patient finished eating and walked out. Waiting for taxi. db Vital Signs: 03:26 BP 118 / 55; Pulse 74; Resp 17 S; Temp 98.1(TE); Pulse Ox 100% on R/A; lg3 03:33 Weight 86.18 kg; Height 5 ft. 6 in. ; kd3 04:15 BP 146 / 57; Pulse 80; Resp 16 S; Pulse Ox 97% on R/A; aa9 04:36 BP 132 / 56; Pulse 80; Resp 16 S; Pulse Ox 100% on R/A; aa9 05:30 BP 114 / 54; Pulse 80; Resp 16; Pulse Ox 97% on 3 lpm NC; aa9 06:30 BP 132 / 60; Pulse 80; Resp 16 S; Pulse Ox 94% on 3 lpm NC; aa9 07:22 BP 122 / 62; Pulse 71; Resp 18 S; Pulse Ox 93% on 3 lpm NC; kc6 08:08 BP 120 / 78; Pulse 71; Resp 16; Pulse Ox 98% on 3 lpm NC; ko1 09:08 BP 137 / 73; Pulse 75; Resp 18 S; Pulse Ox 100% on 3 lpm NC; kc6 09:45 BP 127 / 74; Pulse 66; Resp 18; Pulse Ox 99% ; ko1 10:18 BP 127 / 83; Pulse 67; Resp 19 S; Pulse Ox 100% on 3 lpm NC; kc6 11:12 BP 123 / 68; Pulse 73; Resp 16 S; Pulse Ox 99% on R/A; kc6 11:52 BP 130 / 65; Pulse 70; Resp 17 S; Pulse Ox 100% on R/A; kc6 14:47 BP 108 / 49; Pulse 71; Resp 16; Pulse Ox 95% on R/A; iw 14:47 BP 109 / 52; Pulse 72; Resp 16; Pulse Ox 100% on 3 lpm NC; iw 17:21 BP 124 / 69; Pulse 67; Resp 16; Pulse Ox 99% on R/A; db 18:00 BP 128 / 49; Pulse 66; Resp 18; Pulse Ox 100% on R/A; db 03:33 Body Mass Index 30.67 (86.18 kg, 167.64 cm) kd3 ED Course: 02:45 Patient arrived in ED. aa9 02:49 Akhil Finnegan MD is Attending Physician. sp4 03:03 Triage completed. lg3 03:03 Arm band placed on right wrist. lg3 03:05 XRAY Chest (1 view) In Process Unspecified. EDMS 03:26 East cath inserted, using sterile technique, 16 Fr., by pa, balloon inflated, to lg3 gravity drainage, urine specimen collected. Patient tolerated well. Inserted saline lock: 22 gauge in right antecubital area, using aseptic technique. Blood collected. 03:28 Patient has correct armband on for positive identification. Placed in gown. Bed in low lg3 position. Call light in reach. Side rails up X2. Client placed on continuous cardiac and pulse oximetry monitoring. NIBP monitoring applied. cardiac monitor technician on. Door closed. Noise minimized. Warm blanket given. 04:08 Extrem Venous W Compression Denilson US In Process Unspecified. EDMS 04:29 CT Head Brain wo Cont In Process Unspecified. EDMS 05:49 CT Chest, Abdomen, Pelvis - W/Contrast In Process Unspecified. EDMS 07:00 Report received from Martha Lima RN. kc6 07:12 Attending Physician role handed off by Akhil Finnegan MD bs3 07:12 Shin Barfield MD is Attending Physician. bs3 07:40 Transfer initiated via fax to [facility], and [address] 08:07 Chantell Temple RN is Primary Nurse. ko1 09:00 Nurse to Nurse report conducted with [facility]. em1 09:20 East cath balloon deflated. ko1 18:23 Attending Physician role handed off by Shin Barfield MD ms3 18:23 Felipe Aiken DO is Attending Physician. ms3 18:28 No provider procedures requiring assistance completed. IV discontinued, intact, db bleeding controlled, No redness/swelling at site. Administered Medications: 03:08 Drug: Geodon IM 40 mg Route: IM; Site: right vastus lateralis; lg3 03:08 Drug: LORazepam IM 2 mg Route: IM; Site: right vastus lateralis; lg3 04:32 Drug: Ondansetron IVP 4 mg Route: IVP; Site: right antecubital; aa9 18:26 Follow up: Response: No adverse reaction db 04:32 Drug: Ketorolac IVP 30 mg Route: IVP; Site: right antecubital; aa9 18:26 Follow up: Response: No adverse reaction db 04:32 Drug: NS 0.9% IV 1000 ml Route: IV; Rate: 75 ml/hr; Site: right antecubital; aa9 04:35 Drug: Enoxaparin Sub-Q 90 mg Route: Sub-Q; Site: right lower abdomen; aa9 18:26 Follow up: Response: No adverse reaction db 13:36 Drug: Acetaminophen PO 650 mg Route: PO; iw 18:26 Follow up: Response: No adverse reaction db 14:46 Drug: HALdol (as decanoate) IM 5 mg Route: IM; Site: right deltoid; iw 18:26 Follow up: Response: No adverse reaction db 14:46 Not Given (Physician Discretion): Midazolam IM 5 mg IM once iw 14:46 Drug: Midazolam IVP or IV 4 mg Route: IVP; Site: right antecubital; iw 18:26 Follow up: Response: No adverse reaction db Medication: 18:29 VIS not applicable for this client. db Outcome: 07:13 ER care complete, transfer ordered by MD. sp4 18:25 Discharge ordered by MD. ms3 18:28 Discharged to home via taxi db 18:28 Condition: stable 18:28 Discharge instructions given to patient, Instructed on discharge instructions, follow up and referral plans. 18:36 Patient left the ED. db Signatures: Dispatcher [employer] EDMS Lizabeth Bryant, RN CLIFF iw Alphonse Ferraro em1 Pushpa Andre RN RN lg3 Felipe Aiken DO DO ms3 Ambika Hayes, RN RN kd3 Martha Lima, RN RN [id number] Luann Disla RN RN kc6 Shin Barfield MD MD bs3 Chantell Temple RN RN ko1 Ariela Pina RN RN db Akhil Finnegan MD MD sp4 Corrections: (The following items were deleted from the chart) 03:28 03:01 Chief complaint: EMS states: toned out to [place] [facility] by [facility] for combative lg3 patient with delusions. PT brought in with [place] [facility] on [facility]. pt complains of right leg pain. lg3 14:46 14:46 Midazolam IM 5 mg IM in right deltoid iw iw
--- NOTE | 2022-07-21 10:23 | RAD REPORT ---
EXAM DESCRIPTION: CT - Head Brain Wo Cont - 07/21/2022 5:10 am CLINICAL HISTORY: 61 years Male delirium TECHNIQUE: Multiple axial CT images of the brain were performed followed by sagittal and coronal rec onstructed images. The CT study is performed according to ALARA (as low as reasonably achievable) or ALARA/IMAGE GENTLY, with automatic adjustment of mA and/or kV according to patient size. Performed on: 07/21/2022 at 4:20 AM COMPARISON: 07/11/2022. FINDINGS: Brain: There is no evidence of mass, acute mass effect or midline shift. There are no acut e extra-axial fluid collections. There is no evidence of acute intracranial hemorrhage. The cerebra l sulci and ventricles are normal in size and configuration. There are no focal abnormal areas of inc reased or decreased attenuation. Paranasal Sinuses and Mastoids: There is mild mucosal thickening of the maxillary sinuses. The mastoi d air cells are clear. Orbits: The orbital contents are grossly unremarkable. Bones: No acute osseous abnormalities are identified. Soft Tissues: No focal soft tissue abnormalities are identified. IMPRESSION: 1. There is no evidence of acute intracranial pathology. No significant change when co mpared to the prior study. 2. Mild mucosal thickening of the maxillary sinuses. Electronically signed by: Chitra Corado DO 07/21/2022 4:46 AM CDT Due to temporary technical issues with the PACS/Fluency reporting system, reports are being signed by the in house radiologists without review as a courtesy to insure prompt reporting. The interpreting radiologist is fully responsible for the content of the report.
--- NOTE | 2022-07-21 12:48 | RAD REPORT ---
EXAM DESCRIPTION: US - Extrem Venous W Compress Denilson - 07/21/2022 4:06 am CLINICAL HISTORY: 61 years Male Bilateral DVT, follow-up, bilateral lower extremity swelling TECHNIQUE: Bilateral lower extremity color duplex evaluation of the deep venous system performed on 07/21/2022 at 3: 43 AM. COMPARISON: 07/16/2022 FINDINGS: Grayscale and color Doppler images of the deep veins of the right lower extremity was perf ormed. The grayscale images reveal incomplete compressibility of the deep veins. The Doppler images r eveal evidence of flow and phasicity with respiration favoring persistent nonocclusive thrombus. Th e color flow images reveal incomplete saturation of flow within the deep veins of the right lower ext remity. Grayscale and color Doppler images of the deep veins of the left lower extremity was performed. The g rayscale images reveal incomplete compressibility of the deep veins. The Doppler images reveal eviden ce of flow and phasicity with respiration favoring persistent nonocclusive thrombus. The color flow i mages reveal incomplete saturation of flow within the deep veins of the left lower extremity. There is reticulation of the subcutaneous fat consistent with bilateral lower extremity edema.. IMPRESSION: Sonographic findings consistent with persistent nonocclusive thrombus throughout the rig ht and left lower extremities as described above. Electronically signed by: Chitra Corado DO 07/21/2022 4:41 AM CDT Due to temporary technical issues with the PACS/Fluency reporting system, reports are being signed by the in house radiologists without review as a courtesy to insure prompt reporting. The interpreting radiologist is fully responsible for the content of the report.
--- NOTE | 2022-07-21 12:50 | RAD REPORT ---
EXAM DESCRIPTION: CT - Chest Abdomen Pelvis W Cont - 07/21/2022 8:06 am CLINICAL HISTORY: CHEST PAIN COMPARISON: 07/16/2022. TECHNIQUE: CT CHEST ABDOMEN PELVIS WITH IV CONTRAST on 07/21/2022 4:59 AM CDT. MIPS reconstructions we re generated. This exam was performed according to our departmental dose-optimization program, which includes autom ated exposure control, adjustment of the mA and/or kV according to patient size and/or use of iterati ve reconstruction technique. FINDINGS: Vascular: Thoracic aorta is normal in course and caliber without aneurysm or dissection. T here is thrombus along the wall of the stent. There is also possible thrombus within the right femora l and iliac vasculature. There is a stent within the infrarenal IVC. Pelvic arteries are patent witho ut aneurysm or occlusion. Chest: The heart is mildly enlarged. There is no pericardial effusion. Intrathoracic lymph nodes are not enlarged. There is no pleural effusion, pleural thickening or pneumothorax. Central airways are patent. There i s mild bibasilar atelectasis. Abdomen: Liver is fatty in attenuation. There is no biliary dilatation. Gallbladder is normal in appe arance. The pancreas and spleen are normal in appearance. Small left adrenal mass measures 11 mm. Rig ht adrenal gland is normal. Right kidney is unremarkable. Anterior mid pole left renal mass measures 2.4 cm. There is no free air. There is no retroperitoneal adenopathy. Pelvis: There is no bowel obstruction. Urinary bladder is decompressed with a Gill catheter within. There is no free fluid. Appendix is not clearly seen. There is a large lipoma within the right groin measuring at least 10 cm. Skeleton: There is edema throughout the right thigh subcutaneous fat. Lucent lesion within the left s mercedes of the T11 vertebral body is unchanged. IMPRESSION: Suspicious left renal mass, representing a renal cell carcinoma until proven otherwise. Redemonstration of right pelvic and upper thigh venous thrombi. Electronically signed by: Claudio Brown MD 07/21/2022 6:38 AM CDT Due to temporary technical issues with the PACS/Fluency reporting system, reports are being signed by the in house radiologists without review as a courtesy to insure prompt reporting. The interpreting radiologist is fully responsible for the content of the report.
--- NOTE | 2022-07-21 12:51 | RAD REPORT ---
EXAM DESCRIPTION: RAD - Chest Single View - 07/21/2022 3:03 am CLINICAL HISTORY: CHEST PAIN TECHNIQUE: AP chest COMPARISON: July 16 FINDINGS: CHEST: Heart: The cardiomediastinal silhouette is within normal limits. Lungs: No focal consolidation. Mediastinum: Unremarkable Pleura: No appreciable effusion. No pneumothorax. Bones: Intact IMPRESSION: No acute cardiopulmonary disease. Electronically signed by: Juanpablo Zuniga MD 07/21/2022 3:29 AM CDT Due to temporary technical issues with the PACS/Fluency reporting system, reports are being signed by the in house radiologists without review as a courtesy to insure prompt reporting. The interpreting radiologist is fully responsible for the content of the report.
[2022-07-21] MEDS ORDERED: ACETAMINOPHEN 325 MG TABLET ONE (13:42)
[2022-07-21] MEDS ORDERED: HALOPERIDOL LACT 5 MG/ML INJ ONE (14:44)
[2022-07-21] MEDS ORDERED: MIDAZOLAM HCL 2 MG/2 ML INJ ONE (14:44)
[2022-07-21 19:36] VITALS: TEMP 98.1
[2022-07-21 19:55] VITALS: BP 128/49; O2SAT 100
--- NOTE | 2022-07-22 14:50 | EKG ---
Test Date: 2022-07-21 Test Time: 03:34:15 Chain Testing Machine Operator: ROCIO MEASUREMENT RESULTS: Intervals: Rate: 82 AR: 156 QRSD: 84 QT: 378 QTc: 441 [place]: P: 53 AR: 156 QRS: 63 T: 36 INTERPRETIVE STATEMENTS: Sinus rhythm with fusion complexes Otherwise normal ECG Compared to ECG 07/19/2022 18:24:59 Fusion complex(es) now present Electronically Signed On 07-22-22 14:44:54 CDT by Paco Quach
== END 2022-07-21 18:36 | disposition home or self-care (01) ==
LOC: ER 02:43
DX: I82.403 Acute embolism and thrombosis of unspecified deep veins of lower extremity, bilateral (principal); F25.0 Schizoaffective disorder, bipolar type; Z20.822 Contact with and (suspected) exposure to COVID-19
CPT/HCPCS: 93005; 85025; 81001; 80048; 36415; 83735; 85610; 80076; 84484; 84439; 83880; 80307; 87804 ×2; 70450; 71260; 74177; 71045; 93970; 51702; 96375; 96372; 96374; 99285; 80143; 80179; 82077; 87811; Q9967; J1650; J1630; J2250; J3486; J2405; J7030

== ENCOUNTER 2022-07-23 18:46 | Emergency (ER) | payer OTHER ==
--- OUTSIDE RECORDS SUMMARY | 2022-07-23 19:24 | XMS REPORT | Continuity of Care Document ---
:1960 Author Organization [facility] t Address [address] [facility]. [address] [place] [address] Care Team Providers Name Role Phone SHEY VAN Primary Care Physician Unavailable [id number] Attending Clinician Unavailable BECCA PHAM Attending Clinician Unavailable BECCA PHAM Attending Clinician Unavailable LAWRENCE PETERSON Attending Clinician Unavailable LAWRENCE PETERSON Attending Clinician Unavailable ROBINA BECERRIL Attending Clinician Unavailable PATRICIA LION Attending Clinician Unavailable Patricia Lion MD Attending Clinician Robina Becerril MD Attending Clinician Kvng CORONADO, Elyssa Thornton Attending Clinician Unavailable ELLE JARRELL Attending Clinician Unavailable ANA TERRAZAS Attending Clinician Unavailable Ana Terrazas MD Attending Clinician RAMANA CRUZ Attending Clinician Unavailable Ángel Murray MD Attending Clinician Nancy CARTER, Ramana Simon Attending Clinician ARISTEO TRINIDAD Attending Clinician Unavailable Hilda Miller MD Attending Clinician Aristeo Trinidad DO Attending Clinician Kaden CARTER, Sunny Attending Clinician [phone] Fabienne CARTER, Olga Attending Clinician Laureen Moore MD Attending Clinician LAUREEN MOORE Attending Clinician Unavailable Doctor Unassigned, Mandan Attending Clinician Unavailable ALLAN LYNCH Attending Clinician Unavailable Meche Perry Attending Clinician Luis Huerta DO Attending Clinician Jaye Palafox MD Attending Clinician Lance Neal DO Attending Clinician RENEE PAREKH Attending Clinician Unavailable WOO DURAN Attending Clinician Unavailable IVANA BLACKMON Attending Clinician Unavailable Ivana Benavidez Attending Clinician Herminio Corbin MD Attending Clinician Dawson Choudhury MD Attending Clinician DAWSON CHOUDHURY Attending Clinician Unavailable DAWSON CHOUDHURY Attending Clinician Unavailable , [facility] Bed Attending Clinician Unavailable Alphonse Manjarrez PA-C Attending Clinician ALPHONSE MANJARREZ Attending Clinician Unavailable DELROY FARAH Attending Clinician Unavailable Delroy Farah MD Attending Clinician [facility] Attending Clinician Unavailable Erma Morales RN Attending Clinician Unavailable MAGDALENE MALDONADO Attending Clinician Unavailable Joel BAKERY DELIVERERMagdalene Attending Clinician Joeysuma BAKERY DELIVERER, Lenstevesuma Attending Clinician HERMINIO CORBIN Attending Clinician Unavailable Ladonna Bryant DO Attending Clinician MAKAYLA SARGENT Attending Clinician Unavailable Makayla Fulton S Attending Clinician CLEVE_ Attending Clinician Unavailable BENITO LOPEZ Attending Clinician Unavailable Edgard Leo DO Attending Clinician Magali Curtis MD Attending Clinician Allen Maravilla MD Attending Clinician Perla CARTER, Georgina Key Attending Clinician SIENNA POLK Attending Clinician Unavailable LADI RIBERA Attending Clinician Unavailable YASMINE BROOKE Attending Clinician Unavailable MD YASMINE BROOKE Attending Clinician Unavailable Pato Hill MD Attending Clinician Surgery, Tdc General Attending Clinician Unavailable Sofia Malone MD Attending Clinician Surgery, Tdc Vascular Attending Clinician Unavailable Ramana Padron MD Attending Clinician RAMANA SHEA M.D., RAMANA Acevedo M.D. Attending Clinician Unavailable Christy Moya Attending Clinician [id number] Admitting Clinician Unavailable BECCA PHAM Admitting Clinician Unavailable LAWRENCE PETERSON Admitting Clinician Unavailable ELLE JARRELL Admitting Clinician Unavailable RAMANA CRUZ Admitting Clinician Unavailable Ramana Cruz MD Admitting Clinician Hilda MILLER Admitting Clinician Unavailable OLGA ABRAHAM Admitting Clinician Unavailable ALLAN LYNCH Admitting Clinician Unavailable MAKAYLA SARGENT Admitting Clinician Unavailable HERMINIO CORBIN Admitting Clinician Unavailable CLEVE_ Admitting Clinician Unavailable Kirsten CARTER, Magali Admitting Clinician Perla CARTER, Georgina Key Admitting Clinician [phone] YASMINE BROOKE Admitting Clinician Unavailable MD YASMINE BROOKE Admitting Clinician Unavailable Pato Hill MD Admitting Clinician RAMANA SHEA M.D., RAMANA Acevedo Admitting Clinician Tasha ivey Payers Payer Name Policy Type Policy Number Effective Date Expiration Date S emmanuel [employer] [id number] 2022 00:00:00 WLCM WLCM [id number] [place]ARE [place] [id number] 2021 CLASSIC NO PREMIUM 00:00:00 HMO MEDICARE PART A [id number] 2003 00:00:00 [facility] [id number] LONGTERM 00:00:00 WELLCARE VALUE [id number] 2020 00:00:00 Problems Condition Condition Condition Status Onset Resolution Last Treating Co mments Source Name Details Category Date Date Treatment Clinician Date Cellulitis Cellulitis Disease Active U nivers of right of right 5-29 ity of lower lower 00:00: [place] extremity extremity 00 [facility] Acute Acute Disease Active [facility] [...] Univers filter filter 4-14 ity of 00:00: [place] 00 [facility] Branch DVT (deep DVT (deep Disease Active Uni vers venous venous 4-14 [place] 00 [facility] Branch Bilateral Bilateral Disease Active Uni vers sciatica sciatica 4-13 ity of 00:00: [place] 00 [facility] Branch Obesity Obesity Disease Active Univers (BMI [...] chronicity chronicity ally from request for surgery [id number] Lipoma of Lipoma of Disease Active Overview: Univers right right 4-12 Formattin ity of lower lower 00:00: g of this [place] extremity extremity 00 note Medi gordon might be Branch different from the original. Added automatic ally from request for surgery [id number] Lipoma of Lipoma of Disease Active Uni vers torso torso 4-06 ity of 00:00: [place] [facility] Kamryn Kamryn Disease Active Univers 624 ity of 00:00: Medical Branch Rhabdomyol Rhabdomyol Disease Active U nivers ysis ysis 6-21 ity of 00:00: [place] [facility] Presence Presence Disease Active Metho di of IVC of IVC 917 [facility] filter filter 00:00: Hospita 00 l Acute Acute Disease Active Methodi chest pain chest pain 9-15 st 00:00: Hospita 00 l Behavior Behavior Disease Active Unive rs problem problem 6-13 ity of 00:00: [place] [facility] Cellulitis Cellulitis Disease Active U nivers and and 613 ity of abscess of abscess of [place] foot foot 00 [place] Alteration Alteration Disease Active U nivers consciousn consciousn 6-13 it y of ess ess 00:00: [place] [facility] TESTING TESTING Diagnosis Active 2014-07-28 Memoria FOR DVT FOR DVT 07-22 14:06:00 l Active 00:00: [place] 07/22/2014 00 [facility] 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 2-16 ity of disorder, disorder, [place] chronic chronic 00 Medical condition condition Bran ch with acute with acute exacerbati exacerbati on on Hypertensi Hypertens Problem Active 2014-07-25 Memoria ve raisa 07:19:48 l disorder, disorder, Herm britt systemic systemic arterial arterial (disorder) (disorder) Active Problem 07/25/2014 [facility] History of Past Illness Condition Condition Condition Status Onset Resolution Last Treating Co mments Source Name Details Category Date Date Treatment Clinician Date Discharge Discharge Problem 2014-2014-07-25 2014-07-25 Memoria Diagnosis: Diagnosis: 07-22 07:19:48 07:19:48 l Chronic Chronic 05:00: [place] back pain back pain 00 07/22/2014 07/25/2014 [facility] Discharge Discharge Problem 2014-07-25 2014-07-25 Memoria Diagnosis: Diagnosis: 07-22 07:19:48 07:19:48 l Peripheral Peripheral 05:00: [place] r[place] edema edema 00 07/22/2014 07/25/2014 [facility] Allergies, Adverse Reactions, Alerts Allergy Allergy Status Severity Reaction(s) Onset Inactive Treating Comm ents Source Name Type Date Date Clinician LORAZEPA DRUG Active Other-Cmnt Univ ers M INGREDI 6-10 ity of 00:00: [place] 00 [facility] Lorazepa Propensi Active Other - See "Highly Univers m ty to comments 6-10 addictive ity o f adverse 00:00: " [place] reaction 00 Medical Branch HEPARIN Allergy Active [facility] ANALOGUE 5-10 [...] Active Low Rash [address] [facility] HEPARIN DRUG Active Unknown-Cmnt Uni vers INGREDI 4- ity of 00:00: [place] 00 Medical Branch Heparin Propensi Active Unknown - HIT-Ab Univ ers ty to See comments 06-04 ity of adverse 00:00: [place] reaction 00 [facility] GABAPENT DRUG Active Other-Cmnt Univ ers IN INGREDI 4- ity of 00:00: [place] 00 Medical Branch Gabapent Propensi Active Other - See Hot U nivers in ty to comments 06-03 flashes ity of adverse 00:00: and upset [place] reaction 00 stomach Medical s Branch Penicill DA Active U Rash 2019-02 [facility] ins 2 00:00: 00 No Known DA Active U 2019-02 [facility] Drug 2-20 Allergie 00:00: s 00 Penicill Propensi Active Rash Univer s ins ty to 06 ity of adverse 00:00: [place] reaction 00 Medical s to Branch drug PENICILL Drug Active Rash Univers INS Class 02-18 ity of 00:00: [place] 00 Medical Branch Penicill Penicill Active Memori a in in l [place] Family History Family Member Diagnosis Comments Start Date Stop Date Source Natural father [facility] mother Diabetes [facility] Social History Social Habit Start Date Stop Date Quantity Comments Source Gender identity [facility] Sexual orientation [facility] History SDOH University o f Alcohol Std Drinks [place] [facility] History SDOH University o f Alcohol Binge [place] [facility] al Branch History SDOH Social Unive rsity of Connections Get [place] Med ical Together Branch History SDOH Social Unive rsity of Connections [facility] Medical Branch History SDOH Social Unive rsity of Connections [place] [facility] Membership Branch History SDOH Social Unive rsity of Connections [place] [facility] Meetings Branch Exposure to 2022-07-01 2022-07-11 [...] Unive rsity of Connections Living 00:00:00 00:00:00 [place] [facility] History SDOH 2022-05-27 2022-05-27 0 University o f Physical Activity 00:00:00 00:00:00 [place] M edical DPW Branch History SDOH 2022-05-27 2022-05-27 0 University o f Physical Activity 00:00:00 00:00:00 [place] M edical MPS Branch History SDOH 2022-05-27 2022-05-27 5 University o f Financial 00:00:00 00:00:00 [place] [facility] History SDOH Food 2022-05-27 2022-05-27 1 Univers ity of Worry 00:00:00 00:00:00 [place] [facility] History SDOH Food 2022-05-27 2022-05-27 1 Univers ity of Scarcity 00:00:00 00:00:00 [place] [facility] History SDOH 2022-05-27 2022-05-27 2 University o f Transport Med 00:00:00 00:00:00 [place] Medic al Branch History SDOH 2022-05-27 2022-05-27 2 University o f Transport Non-Med 00:00:00 00:00:00 [place] M edical Branch History SDOH 2022-05-27 2022-05-27 2 University o f Housing Unable to 00:00:00 00:00:00 [place] M edical Pay Branch History SDID 2022-05-27 2022-05-27 1 University o f Housing Places 00:00:00 00:00:00 [facility] gordon Lived Branch History SDID 2022-05-27 2022-05-27 2 University o f Housing Homeless 00:00:00 00:00:00 [facility] edison Last Year Branch Education 2022-05-26 2022-05-26 21 University of 00:00:00 00:00:00 [facility] Tobacco use and 2022-05-03 2022-05-03 User of Universit y of exposure 00:00:00 00:00:00 smokeless [facility] tobacco Branch Tobacco Comment 2021-09-22 2021-09-22 dipper Universit y of 00:00:00 00:00:00 [facility] History of Social 2019-10-31 2019-10-[address] function 00:00:00 00:00:00 Hospital Alcohol intake 2019-10-29 2019-10-29 Lifetime [facility] 00:00:00 00:00:00 [facility]-drinker [facility] (finding) History of tobacco 2014-08-25 Snuff User Univer sity of use 00:00:00 [facility] Sex [birth year] At [birth year] [facility] 00:00:00 00:00:00 Hospital Smoking Status Start Date Stop Date Source Social History [facility] Medications Ordered Filled Start Stop Current Ordering Indication Dosage Frequency Signature Comments Components Source Medication Medication Date Date Medication? Clinician (SIG) Name Name clindamycin 2022- No 900mg 900 mg, IV Univers in 5 % 07-11 Piggyback, ity of dextrose 10:45: 11:47 ONCE, 1 [place] (CLEOCIN) 00 :00 dose, On Medica l 900 mg/50 Mon [place] mL IV 07/11/22 at piggyback 0545, RTU 900 mg Administer over 30 Minutes, 50 mL
R chelsea for Anti-Infec tive: Empiric Therapy for Suspected Infection< br>Empiric Therapy Site: Skin / Soft tissue
Duration of therapy: 5 days
Re stricted use approved by: ED PROVIDER cefTRIAXone 2022- No 1000mg 1,000 mg, Univers (ROCEPHIN) 07-05 IV ity of 1,000 mg in 14:15: 14:53 [place], [place] NaCl 0.9% 00 :00 ONCE, 1 Medical (NS) 100 mL dose, On Bran ch MINI-BAG Counts Include 234 Beds [facility] 07/05/22 at 0915, Administer over 30 [...] Branch e 07/05/22 at 0715, Routine OLANZapine Yes [id number] 5mg Take 1 Univers 5 mg tablet 5-23 tablet by ity of 00:00: mouth in [place] 00 the Medical morning. Branch OLANZapine 2022- Yes [id number] 5mg Take 1 Univers 5 mg tablet 5-23 tablet by ity of 00:00: mouth in [place] 00 the Medical morning. Branch OLANZapine 2023-0 Yes [id number] 5mg Take 1 Univers 5 mg tablet 5-23 tablet by ity of 00:00: mouth in [place] 00 the Medical morning. Branch OLANZapine 2023-0 Yes [id number] 5mg Take 1 Univers 5 mg tablet 5-23 tablet by ity of 00:00: mouth in [place] the Medical morning. Branch OLANZapine 2023-0 Yes [id number] 5mg Take 1 Univers 5 mg tablet 5-23 tablet by ity of 00:00: mouth in [place] 00 the Medical morning. Branch OLANZapine 2023-0 Yes [id number] 5mg Take 1 Univers 5 mg tablet 5-23 tablet by ity of 00:00: mouth in [place] 00 the Medical morning. Branch OLANZapine 2023-0 Yes [id number] 5mg Take 1 Univers 5 mg tablet 5-23 tablet by ity of 00:00: mouth in [place] the Medical morning. Branch OLANZapine 2023-0 Yes [id number] 5mg Take 1 Univers 5 mg tablet 5-23 tablet by ity of 00:00: mouth in [place] the Medical morning. Branch OLANZapine 2023-0 Yes [id number] 5mg Take 1 Univers 5 mg tablet 5-23 tablet by ity of 00:00: mouth in [place] the Medical morning. Branch OLANZapine 2023-0 Yes [id number] 5mg Take 1 Univers 5 mg tablet 5-23 tablet by ity of 00:00: mouth in [place] the Medical morning. Branch furosemide 2023-0 2023- Yes [id number] 40mg Take 1 Univers 40 mg 5-23 06-07 tablet by ity of tablet 00:00: 04:59 mouth [place] 00 :00 every Medical morning Branch and evening for 14 days. furosemide 2023-0 2023- Yes [id number] 40mg Take 1 Univers 40 mg 5-23 06-07 tablet by ity of tablet 00:00: 04:59 mouth [place] 00 :00 every Medical morning Branch and evening for 14 days. furosemide 2023-0 2023- Yes [id number] 40mg Take 1 Univers 40 mg 5-23 06-07 tablet by ity of tablet 00:00: 04:59 mouth [place] 00 :00 every Medical morning Branch and evening for 14 days. furosemide 2023-0 2023- Yes [id number] 40mg Take 1 Univers 40 mg 5-23 06-07 tablet by ity of tablet 00:00: 04:59 mouth [place] 00 :00 every Medical morning Branch and evening for 14 days. furosemide 2022- Yes [id number] 40mg Take 1 Univers 40 mg 5-23 06-07 tablet by ity of tablet 00:00: 04:59 mouth [place] 00 :00 every Medical morning Branch and evening for 14 days. furosemide 2022- Yes [id number] 40mg Take 1 Univers 40 mg 5-23 06-07 tablet by ity of tablet 00:00: 04:59 mouth [place] 00 :00 every Medical morning Branch and evening for 14 days. furosemide 2022- Yes [id number] 40mg Take 1 Univers 40 mg 5-23 06-07 tablet by ity of tablet 00:00: 04:59 mouth [place] 00 :00 every Medical morning Branch and evening for 14 days. cephALEXin 2022- Yes [id number] 1000mg Take 2 Univers 500 mg -05 07- [id number] capsules ity of capsule 00:00: 04:59 by mouth [place] 00 :00 in the Medical morning Branch and 2 capsules in the evening. Do all this for 7 days. cephALEXin 2022- Yes [id number] 1000mg Take 2 Univers 500 mg -07-13 [id number] capsules ity of capsule 00:00: 04:59 by mouth [place] 00 :00 in the Medical morning Branch and 2 capsules in the evening. Do all this for 7 days. cephALEXin 2022- Yes [id number] 1000mg Take 2 Univers 500 mg -07-13 [id number] capsules ity of capsule 00:00: 04:59 by mouth [place] 00 :00 in the Medical morning Branch and 2 capsules in the evening. Do all this for 7 days. cephALEXin 2022- Yes [id number] 1000mg Take 2 Univers 500 mg 5-05 07- [id number] capsules ity of capsule 00:00: 04:59 by mouth [place] 00 :00 in the Medical morning Branch and 2 capsules in the evening. Do all this for 7 days. cephALEXin 2022- Yes [id number] 1000mg Take 2 Univers 500 mg 5-05 07- [id number] capsules ity of capsule 00:00: 04:59 by mouth [place] 00 :00 in the Medical morning Branch and 2 capsules in the evening. Do all this for 7 days. apixaban 5 3-0 Yes [id number] 5mg Take 1 Unive rs mg tablet 5-22 tablet by ity o f 00:00: mouth in [place] 00 the Medical morning Branch and 1 tablet in the evening. Indication s: history of deep vein thrombosis apixaban 5 3-0 Yes [id number] 5mg Take 1 Unive rs mg tablet 5-22 tablet by ity o f 00:00: mouth in [place] 00 the Medical morning Branch and 1 tablet in the evening. Indication s: history of deep vein thrombosis apixaban 5 2022-0 Yes [id number] 5mg Take 1 Unive rs mg tablet 5-22 tablet by ity o f 00:00: mouth in [place] 00 the Medical morning Branch and 1 tablet in the evening. Indication s: history of deep vein thrombosis apixaban 5 3-0 Yes [id number] 5mg Take 1 Unive rs mg tablet 5-22 tablet by ity o f 00:00: mouth in [place] 00 the Medical morning Branch and 1 tablet in the evening. Indication s: history of deep vein thrombosis apixaban 5 2022-0 Yes 5523 5mg Take 1 Unive rs mg tablet 5-22 tablet by ity o f 00:00: mouth in [place] 00 the Medical morning Branch and 1 tablet in the evening. Indication s: history of deep vein thrombosis apixaban 5 3-0 Yes 5523 5mg Take 1 Unive rs mg tablet 5-22 tablet by ity o f 00:00: mouth in [place] 00 the Medical morning Branch and 1 tablet in the evening. Indication s: history of deep vein thrombosis apixaban 5 3-0 Yes 5523 5mg Take 1 Unive rs mg tablet 5-22 tablet by ity o f 00:00: mouth in [place] 00 the Medical morning Branch and 1 tablet in the evening. Indication s: history of deep vein thrombosis apixaban 5 3-0 Yes 5523 5mg Take 1 Unive rs mg tablet 5-22 tablet by ity o f 00:00: mouth in [place] 00 the Medical morning Branch and 1 tablet in the evening. Indication s: history of deep vein thrombosis apixaban 5 3-0 Yes 5523 5mg Take 1 Unive rs mg tablet 5-22 tablet by ity o f 00:00: mouth in [address] morning [place] and 1 tablet in the evening. Indication s: history of deep vein thrombosis apixaban 5 2023-0 Yes 5523 5mg Take 1 Unive rs mg tablet 5-22 tablet by ity o f 00:00: mouth in [address] and 1 tablet in the evening. Indication s: history of deep vein thrombosis apixaban 5 2023-0 Yes 5523 5mg Take 1 Unive rs mg tablet 5-22 tablet by ity o f 00:00: mouth in [address] morning [place] and 1 tablet in the evening. Indication s: history of deep vein thrombosis apixaban 5 3-0 Yes 5523 5mg Take 1 Unive rs mg tablet 5-22 tablet by ity o f 00:00: mouth in [address] and 1 tablet in the evening. Indication s: history of deep vein thrombosis apixaban 5 3-0 Yes 5523 5mg Take 1 Unive rs mg tablet 5-22 tablet by ity o f 00:00: mouth in [address] and 1 tablet in the evening. [...] mouth Center nightly. gabapentin 2023-0 Yes 300mg [id number] Take [address] (NEURONTIN) 5-11 [id number] capsule [facility] 300 MG 18:24: 3D (300 [...] mouth Center nightly. gabapentin 2023-0 Yes 300mg Q.[id number] Take [address] (NEURONTIN) 5-11 [id number] capsule [facility] 300 MG 18:24: 3D (300 [...] s mg tablet 06-13 ity of 00:00: [place] [facility] traMADoL 50 2022-0 Yes Univer s mg tablet 06-13 ity of 00:00: [place] [facility] traMADoL 50 2022-0 Yes Univer s mg tablet 06-13 ity of 00:00: [place] [facility] traMADoL 50 2022-0 Yes Univer s mg tablet 06-13 ity of 00:00: [place] [facility] traMADoL 50 2022-0 Yes Univer s mg tablet 06-13 ity of 00:00: [place] [facility] traMADoL 50 3-0 Yes Univer s mg tablet 06-13 ity of 00:00: [place] [facility] traMADoL 50 3-0 Yes Univer s mg tablet 06-13 ity of 00:00: [place] [facility] traMADoL 50 3-0 Yes Univer s mg tablet 06-13 ity of 00:00: [place] [facility] traMADoL 50 3-0 Yes Univer s mg tablet 06-13 ity of 00:00: [place] [facility] traMADoL 50 3-0 Yes Univer s mg tablet 06-13 ity of 00:00: [place] [facility] traMADoL 50 3-0 Yes Univer s mg tablet 06-13 ity of 00:00: [place] [facility] traMADoL 50 3-0 Yes Univer s mg tablet 06-13 ity of 00:00: [place] [facility] traMADoL 50 3-0 Yes Univer s mg tablet 06-13 ity of 00:00: [place] [facility] traMADoL 50 3-0 Yes Univer [...] s mg tablet 06-13 ity of 00:00: [place] [facility] tc 2022-0 2022- No [id number] 25mCi 25 Univer s 99m-medrona 06-07 04-25 millicurie i ty of te 13:50: 13:50 , [place] (DRAXIMAGE 00 :00 Intravenou Med ical MDP-25) s, ONCE, 1 Branch injection dose, On Mon millicurie 06/07/22 at 0900, Routine apixaban 5 2022- Yes [id number] 5mg Take 1 Univ ers mg tablet 06-07 05-26 tablet by ity of 00:00: 04:59 mouth in [place] 00 :00 the [facility] Branch and 1 tablet in the evening. Do all this for 30 days. Indication s: history of deep vein thrombosis apixaban 2022-2022- Yes 5523 5mg Take 1 Univ ers mg tablet - 05-26 tablet by ity of 00:00: 04:59 mouth in [place] 00 :00 the [facility] morning Branch and 1 tablet in the evening. Do all this for 30 days. Indication s: history of deep vein thrombosis apixaban 2022- Yes 5523 5mg Take 1 Univ ers mg tablet 4-25 05-26 tablet by ity of 00:00: 04:59 mouth in [place] 00 :00 the [facility] morning Branch and 1 tablet in the evening. Do all this for 30 days. Indication s: history of deep vein thrombosis apixaban 0 2022- Yes 5523 5mg Take 1 Univ ers mg tablet 4-25 05-26 tablet by ity of 00:00: 04:59 mouth in [place] 00 :00 the [facility] morning Branch and 1 tablet [...] Take 1 Univ ers mg tablet -07 07-26 tablet by ity of 00:00: 04:59 mouth in [place] 00 :00 the Medical morning Branch and 1 tablet in the evening. Do all this for 30 days. Indication s: history of deep vein thrombosis apixaban 5 2022- Yes 5523 5mg Take 1 Univ ers mg tablet -07 07-26 tablet by ity of 00:00: 04:59 mouth [...] by ity of 00:00: 00:00 mouth in [place] 00 :00 the Medical morning Branch and 1 tablet in the evening. Do all this for 30 days. Indication s: history of deep vein thrombosis acetaminoph 2022- Yes [id number] 500mg Take 1 Univers en 500 mg 4-25 05-06 tablet by ity of tablet 00:00: 04:59 mouth [place] 00 :00 every 6 Medical (six) Branch hours as needed for Pain for up to 10 days. acetaminoph 2022- Yes [id number] 500mg Take 1 Univers en 500 mg 4-25 05-06 tablet by ity of tablet 00:00: 04:59 mouth [place] 00 :00 every 6 Medical (six) Branch hours as needed for Pain for up to 10 days. acetaminoph 2022- Yes [id number] 500mg Take 1 Univers en 500 mg 4-25 05-06 tablet by ity of tablet 00:00: 04:59 mouth [place] 00 :00 every 6 Medical (six) Branch hours as needed for Pain for up to 10 days. acetaminoph 2022- Yes [id number] 500mg Take 1 Univers en 500 mg 4-25 05-06 tablet by ity of tablet 00:00: 04:59 mouth [place] 00 :00 every 6 Medical (six) Branch hours as needed for Pain for up to 10 days. acetaminoph 2022- Yes [id number] 500mg Take 1 Univers en 500 mg 4-25 05-06 tablet by ity of tablet 00:00: 04:59 mouth [place] 00 :00 every 6 Medical (six) Branch hours as needed for Pain for up to 10 days. acetaminoph 2022- Yes [id number] 500mg Take 1 Univers en 500 mg 4-25 05-06 tablet by ity of tablet 00:00: 04:59 mouth [place] 00 :00 every 6 Medical (six) Branch hours as needed for Pain for up to 10 days. acetaminoph 2022- Yes [id number] 500mg Take 1 Univers en 500 mg 4-25 05-06 tablet by ity of tablet 00:00: 04:59 mouth [place] 00 :00 every 6 Medical (six) Branch hours as needed for Pain for up to 10 days. docusate 2022- Yes [id number] 100mg Take 1 Univers 100 mg 4-25 [...] Indication s: acute pain polyethylen 2022- Yes [id number] 17g Take 1 Univers e glycol 4-25 05-03 Packet by ity o f 3350 17 00:00: 04:59 mouth [place] gram powder 00 :00 every 24 Medi gordon (twenty-fo Branch ur) hours as needed for Constipati on for up to 7 days. docusate 2022- Yes [id number] 100mg Take 1 [facility] 100 mg 4-25 05-03 capsule by ity of capsule 00:00: 04:59 mouth in [place] 00 :00 the [facility] morning Branch for 7 days. HYDROcodone 2022- Yes 4647 1{tbl} Take 1 U nivers -acetaminop 4-25 05-03 tablet by it y of hen 10-325 00:00: 04:59 mouth [place] mg tablet 00 :00 every 6 Medical (six) Branch hours as needed for Pain (scale 7-10) or Pain (scale 4-6) for up to 7 days. Indication s: acute pain polyethylen 2022- Yes [id number] 17g Take 1 Univers e glycol 4-25 05-03 Packet by ity o f 3350 17 00:00: 04:59 mouth [place] gram powder 00 :00 every 24 Medi gordon (twenty-fo Branch ur) hours as needed for Constipati on for up to 7 days. docusate 2022- Yes [id number] 100mg Take 1 Univers 100 mg 4-25 05-03 capsule by ity of capsule 00:00: 04:59 mouth in [place] 00 :00 the [facility] Branch for 7 days. HYDROcodone 2022- Yes 4647 1{tbl} Take 1 U nivers -acetaminop 4-25 05-03 tablet by it y of hen 10-325 00:00: 04:59 mouth [place] mg tablet 00 :00 every 6 Medical (six) Branch hours as needed for Pain (scale 7-10) or Pain (scale 4-6) for up to 7 days. Indication s: acute pain polyethylen 2022- Yes [id number] 17g Take 1 Univers e glycol 4-25 05-03 Packet by ity o f 3350 17 00:00: 04:59 mouth [place] gram powder 00 :00 every 24 Medi gordon (twenty-fo Branch ur) hours as needed for Constipati on for up to 7 days. docusate 2022-2022- Yes [id number] 100mg Take 1 Univers 100 mg 4-25 05-03 capsule by ity of capsule 00:00: 04:59 mouth in [place] 00 :00 the [facility] morning Branch for 7 days. HYDROcodone 2022- Yes 4647 1{tbl} Take 1 U nivers -acetaminop 4-25 05-03 tablet by it y of hen 10-325 00:00: 04:59 mouth [place] mg tablet 00 :00 every 6 Medical (six) Branch hours as needed for Pain (scale 7-10) or Pain (scale 4-6) for up to 7 days. Indication s: acute pain polyethylen 2022- Yes [id number] 17g Take 1 Univers e glycol 06-07 05-03 Packet by ity o f 3350 17 00:00: 04:59 mouth [place] gram powder 00 :00 every 24 Medi gordon (twenty-fo Branch ur) hours as needed for Constipati on for up to 7 days. benzocaine- Yes 1{lozen 1 Lozenge, Univers menthoL 4-23 ge} Oral, ity of (CEPACOL 05:03: Q4HPRN, [place] SORE THROAT 14 Starting Medi gordon [facility] L[facility]enge 0003, Until Discontinu ed, Routine, Sore throat benzocaine- 0 Yes 1{lozen 1 Lozenge, Univers menthoL 4-23 ge} Oral, ity of (CEPACOL 05:03: Q4HPRN, [place] SORE THROAT 14 Starting Medi gordon (CLAUDIA-MEN)) on [facility] 1 06/05/22 at Lozenge 0003, Until Discontinu ed, Routine, Sore throat iopamidol 2022- No [id number] 80mL 80 mL, Univers (ISOVUE 06-05 Intravenou ity o f 370-500 mL) 01:36: 01:20 s, ONCE, 1 [place] injection 00 :00 dose, On Medica l 80 mL [facility] 06/04/22 at 204, Routine apixaban 2022- Yes 10mg [Order 1 Univ ers (ELIQUIS) 06-05 Start] ity of tablet 10 01:00: 00:59 Name: [place] mg 00 :00 apixaban Medical (ELIQUIS) Branch tablet 10 mg Signed Summary: 10 mg, Oral, BID, 14 doses, First dose on 06/04/22 at 2000, Last dose on 06/11/22 at 0800, Routine
Indicatio ns: DVT/PE [Order 1 End] [Order 2 Start] Name: apixaban (ELIQUIS) tablet 5 mg Signed Summary: 5 mg, Oral, BID, First dose on [facility] 06/11/22 at 1999, Until Discontinu ed, Routine
Indicatio ns: DVT/PE [Order 2 End] apixaban 2022- Yes 10mg [Order 1 Univ ers (ELIQUIS) 06-05 0430 Start] ity of tablet 10 01:00: 00:59 Name: [place] mg 00 :00 apixaban [facility] (ELIQUIS) [place] tablet 10 mg Signed Summary: 10 mg, Oral, BID, 14 doses, First dose on [facility] 06/04/22 at 1999, Last dose on [facility] 06/11/22 at 0800, Routine
Indicatio ns: DVT/PE [Order 1 End] [Order 2 Start] Name: apixaban (ELIQUIS) tablet 5 mg Signed Summary: 5 mg, Oral, BID, First dose on [facility] 06/11/22 at 1999, Until Discontinu ed, Routine
Indicatio ns: DVT/PE [Order 2 End] bisacodyL Yes 10mg 10 mg, Univer s (DULCOLAX) 06-04 Rectal, ity of suppository 15:25: QDAILYPRN, [place] 10 mg 51 Starting Medical on [facility] 06/04/22 at 1025, Until Discontinu ed, Routine, Constipati on bisacodyL Yes 10mg 10 mg, Univer s (DULCOLAX) 06-04 Rectal, ity of suppository 15:25: QDAILYPRN, [place] 10 mg 51 Starting Medical on [facility] 06/04/22 at 1025, Until Discontinu ed, Routine, Constipati on argatroban 2022- No .15ug/k 0.15-2 U nivers 50 mg in 06-04 04-22 g/min mcg/kg/min ity of 0.9% NaCl 08:24: 21:59 ?86.5 kg [place] as 50 mL RTU 03 :11 (0.7785-10 Medi gordon IV infusion .38 mL/hr, Br anch rounded to 0.78-10.38 mL/hr), IV Infusion, TITRATE, Parameters in Admin. Instr., Starting on [facility] 06/04/22 at 0324
No rmal dosage for [...] Yes 20mg 20 mg, Unive rs (PRILOSEC) 4- Oral, ity of capsule 20 02:43: QDAILYPRN, [place] mg 53 Starting Medical on Mon Branch 06/03/22 at 2143, Until Discontinu ed, Routine, Indigestio n omeprazole 2022-0 Yes 20mg 20 mg, Unive rs (PRILOSEC) 4- Oral, ity of capsule 20 02:43: QDAILYPRN, [...] 1000 mL for 00 :55 06/03/22 at [facility] 0925, Branch Intra-op heparin 2022-0 2022- No 0U/h 0-3,050 Univer s 25,000 06-02 Units/hr ity of Units/250 15:22: 07:25 (0-30.5 [...] INITIAL INFUSION RATE.&nbsp ; _ &nb sp;FOR [place], [facility], AND [facility] C[facility]USES ONLY &nbs p; - [...] reached.&n bsp; &nbs p; __ &n bsp;FOR [facility] ONLY - aPTT < 40: [...] Oral, ity of OIL EXTRA 14:00: DAILY, [place] HEAVY) oral 00 First dose Me dical liquid 30 on [place] Branch mL 06/02/22 at 0900, Until Discontinu ed, Routine mineral oil Yes 30mL 30 mL, Univ ers (MINERAL 4-20 Oral, ity of OIL EXTRA 14:00: DAILY, [place] HEAVY) oral 00 First dose Me dical [...] 00 First dose Medical on [facility] 05/31/22 at 0900, Until Discontinu ed, Routine docusate 2022-0 Yes 100mg 100 mg, Unive rs (COLACE) -18 Oral, ity of capsule 100 14:00: DAILY, [place] mg 00 First dose Medical on [facility] 05/31/22 at 0900, Until Discontinu ed, Routine docusate 2022-0 Yes 100mg 100 mg, Unive rs (COLACE) -18 Oral, ity of capsule 100 14:00: DAILY, [place] mg 00 First dose Medical on [facility] 05/31/22 at 0900, Until Discontinu ed, Routine docusate 0 Yes 100mg 100 mg, Unive rs (COLACE) -18 Oral, ity of capsule 100 14:00: DAILY, [place] mg 00 First dose Medical on [facility] 05/31/22 at 0900, Until Discontinu ed, Routine [...] INFUSION RATE.&nbsp ; _ &nb sp;FOR [place], [facility], AND [facility] C[facility]ES ONLY &nbs p; - [...] 02:47: [place] 05[place]30/[address] Until Discontinu ed, Routine, Intra-op iopamidol 2022-0 Yes PRN, Univers (ISOVUE-300 4-18 Starting ity of ) injection 02:47: [place] 05/30/[address] Until Discontinu ed, Routine, Intra-op iopamidol 2022-0 Yes PRN, Univers (ISOVUE-300 4-18 Starting ity of ) injection 02:47: [place] 05/30/[address] Until Discontinu ed, Routine, Intra-op heparin 2022-0 Yes PRN, Univers 10,000 4-18 Starting ity of units in NS 01:26: on [place] 1000 mL for 05/30/22 at [facility] 2025, Branch Intra-op heparin 2022-0 [...] Yes .5mg/h 0.5 mg/hr U nivers (CATHFLO 05-30 (12.5 ity of ACTIVASE) 14:00: mL/hr), IV [place] 20 mg in 00 Infusion, Medica l NaCl 0.9% CONTINUOUS Bran ch (NS) 500 mL , Starting infusion on Mon05/30/22 at 0900
In fuse Via: infusion catheter. Location: Right lower extremity sheath. Total infusion max dose is 4 mg/hr from all infusion sites combined.< br> alteplase 2022-2022- No .5mg/h 0.5 mg/hr Univers (CATHFLO 05-30 [...] 202- No .5mg/h 0.5 mg/hr Univers (CATHFLO 05-30 [...] all infusion sites combined.< br> KCL 2022-0 2022- No 20meq 20 mEq, Univers (KLOR-CON [...] INITIAL INFUSION RATE.&nbsp ; _ &nb sp;FOR [place], [facility], AND [place] C[facility]USES ONLY &nbs p; - aPTT < [...] therapeuti c levels are reached.<b r> hydralAZINE Yes 10mg 10 mg, Univ ers (APRESOLINE [...] mg 18 Q4HPRN, Medical Starting Branch on Mon05/29/22 at 2232, Until Discontinu ed, Routine, DBP=>10 [...] mg 53 Q4HPRN, Medical Starting Branch on Mon05/29/22 at 2231, Until Discontinu ed, Routine, SBP > 160 and HR > 70 labetaloL 2023-0 Yes 10mg 10 mg, Univer s (NORMODYNE) 4-17 Slow IV ity o f injection 03:31: Push, [place] 10 mg 53 Q4HPRN, Medical Starting Branch on Mon05/29/22 at 2231, Until Discontinu ed, Routine, SBP > 160 and HR > 70 labetaloL 2022-0 Yes 10mg 10 mg, Univer s (NORMODYNE) 4-17 Slow IV ity o f injection 03:31: Push, [place] 10 mg 53 Q4HPRN, Medical Starting Branch on [place] 05/29/22 at 2231, Until Discontinu ed, Routine, SBP > 160 and HR > 70 traMADoL 2022-0 Yes 50mg 50 mg, Univers (ULTRAM) 4-17 Oral, Q6H, ity o f tablet 50 01:45: First dose [place] mg 00 on [facility] 05/29/22 at Branch 2044, Until Discontinu ed, Routine traMADoL 2022-0 Yes 50mg 50 mg, Univers (ULTRAM) 4-17 Oral, Q6H, ity o f tablet 50 01:45: First dose [place] mg 00 on [facility] 05/29/22 at Branch 2044, Until Discontinu ed, Routine traMADoL 2022-0 Yes 50mg 50 mg, Univers (ULTRAM) 4-17 Oral, Q6H, ity o f tablet 50 01:45: First dose [place] mg 00 on [facility] 05/29/22 at Branch 2044, Until Discontinu ed, Routine traMADoL 2022-0 Yes 50mg 50 mg, Univers (ULTRAM) 4-17 Oral, Q6H, ity o f tablet 50 01:45: First dose [place] mg 00 on [facility] 05/29/22 at Branch 2044, Until Discontinu ed, Routine HYDROcodone 2022-0 Yes 1{tbl} 1 tablet, Univers -acetaminop 4-17 Oral, ity of hen (NORCO) 01:37: Q6HPRN, [place] 10-325 mg 54 Starting Medica l tablet 1 on [facility] tablet 05/29/22 at 2036, Until Discontinu ed, Routine, Pain (scale 7-10), Pain (scale 4-6) HYDROcodone 2022-0 Yes 1{tbl} 1 tablet, Univers -acetaminop 4-17 Oral, ity of hen (NORCO) 01:37: Q6HPRN, [place] 10-325 mg 54 Starting Medica l tablet 1 on [facility] tablet 05/29/22 at 2036, Until Discontinu [...] 1245
30 0 units non titratable
acetaminoph 3-0 Yes 500mg 500 mg, Un [...] Medical mg last Branch modificati on) on [place] 05/29/22 at 1215, Until Discontinu ed, Routine acetaminoph 2022- Yes 500mg 500 mg, Un mary en 16 Oral, Q6H, ity of (TYLENOL) 17:15: First dose [place] tablet 500 00 (after Medical mg last Branch modificati on) on [place] 05/29/22 at 1215, Until Discontinu ed, Routine HYDROcodone 2022-2022- No 1{tbl} 1 tablet, Univers -acetaminop 05-2917 Oral, ity of hen (NORCO 17:03: 01:38 Q6HPRN, [place] 5) 5-325 mg 06 :07 Starting [facility] tablet 1 on [facility] tablet 05/29/22 at 1203, Until 05/29/22 at 2038, Routine, Pain (scale 4-6), Pain (scale 7-10) heparin 2022-0 2022- No 300U/h 300 Univers 25,000 05-29-17 Units/hr ity of Units/250 15:46: 14:20 (3 mL/hr), [place] mL 48 :43 IV Medical (Premixed Infusion, Branc h Bag) in TITRATE, 0.45 % NS Parameters in Admin. Instr., Starting on [place] 05/29/22 at 1046
30 0 units/hr, non-titrat able
iodixanoL 2022-0 Yes PRN, Univers (VISIPAQUE 4-16 Starting ity o f 270-150 mL) 13:50: [place] injection 00 05/29/22 at [place] [address], [place] Until Discontinu ed, Routine, Intra-op iodixanoL 2022-0 Yes PRN, Univers (VISIPAQUE 4-16 Starting ity o f 270-150 mL) 13:50: on [place] injection 05/29/22 at [place] [address], [place] Until Discontinu ed, Routine, Intra-op iodixanoL 2022-0 Yes PRN, Univers (VISIPAQUE 4-16 Starting ity o f 270-150 mL) 13:50: on [place] injection 00 05/29/22 at Medi gordon 0850, Branch Until Discontinu ed, Routine, Intra-op iodixanoL 2023-0 Yes PRN, Univers (VISIPAQUE 4-16 Starting ity o f 270-150 mL) 13:50: on [place] injection 05/29/22 at [facility] 0850, Branch Until Discontinu ed, Routine, Intra-op lidocaine 2023-0 Yes PRN, Univers 1% (PF) 4-16 Starting ity of (XYLOCAINE) 13:00: on [place] injection 05/29/22 at [facility] 0800, Branch Until Discontinu ed, Routine, Intra-op lidocaine 2023-0 Yes PRN, Univers 1% (PF) 4-16 Starting ity of (XYLOCAINE) 13:00: on [place] injection 05/29/22 at [facility] 0800, Branch Until Discontinu ed, Routine, Intra-op lidocaine 2023-0 Yes PRN, Univers 1% (PF) 4-16 Starting ity of (XYLOCAINE) 13:00: on [place] injection 05/29/22 at [facility] 0800, Branch Until Discontinu ed, Routine, Intra-op lidocaine 3-0 Yes PRN, Univers 1% (PF) 4-16 Starting ity of (XYLOCAINE) 13:00: on [place] injection 05/29/22 at [facility] 0800, Branch Until Discontinu ed, Routine, Intra-op alteplase 2022-0 3- No 1mg/h 1 mg/hr Uni vers (CATHFLO [...] all infusion sites combined.< br> alteplase 3-0 2022- No 1mg/h 1 mg/hr [...] 2022- No 0U/h 0-2,750 Univer s 25,000 05-28 [...] Rang e, Dosing and Testing: &nbs p;FOR [facility], AND [facility] ONLY &nbs p; - [...] , Starting [place] mL vial) 36 on [facility] for 05/28/22 at Branch Rebolusing 1123, Until Discontinu ed, Routine
Dosing based on aPPT testing parameters (refer to continuous heparin drip order).
sulfur 2022- No [id number] 5mL 5 mL, Univ ers hexafluorid 05-27 Intravenou i ty of e microsphr 18:30: 18:30 s, ONCE, 1 [place] (LUMASON) 00 :00 dose, On Medica l injection 5 Mon [facility] 05/27/22 at 1330, Routine
anthropology faculty member approving Restricted medication : HAROON [...] Branch 0800, Until Discontinu ed, Routine methocarbam Yes 500mg 500 mg, Un mary oL 05-27 Oral, QID, ity of (ROBAXIN) 13:00: First [...] Until Discontinu ed, Routine iopamidol 2022- No [id number] 100mL 100 mL, Univers (ISOVUE 05-27 [id number] Intravenou ity of 370-500 mL) 12:15: 12:15 [...] 48 :01 Starting Medica l mg on [facility] Branch 05/26/22 at 2347, Until 05/29/22 at 1203, Routine, Muscle Spasms HYDROcodone 2022- No 1{tbl} 1 tablet, Univers -acetaminop 05-27 Oral, ity of hen (NORCO 04:44: 17:03 Q6HPRN, [place] 5) 5-325 mg 15 :15 Starting Medi gordon tablet 1 on [facility] Branch tablet 05/26/22 at 2344, Until 05/29/22 at 1203, Routine, Pain (scale 4-6) ondansetron 3-0 Yes 4mg 4 mg, Slow Univers (ZOFRAN 4-14 IV [place], ity of (PF)) 01:30: Q6HPRN, [place] injection 4 58 Starting Medi gordon mg on [facility] 05/26/22 at 2030, Until Discontinu ed, Routine, Nausea and Vomiting (N/V) ondansetron 2023-0 Yes 4mg 4 mg, Slow Univers (ZOFRAN 4-14 IV Push, ity of (PF)) 01:30: Q6HPRN, [place] injection 4 58 Starting Medi gordon mg on [facility] Branch 05/26/22 at 2030, Until Discontinu ed, Routine, Nausea and Vomiting (N/V) ondansetron 2023-0 Yes 4mg 4 mg, Slow Univers (ZOFRAN 4-14 IV Push, ity of (PF)) 01:30: Q6HPRN, [place] injection 4 58 Starting Medi gordon mg on [facility] 05/26/22 at 2030, Until Discontinu ed, Routine, Nausea and Vomiting (N/V) ondansetron 3-0 Yes 4mg 4 mg, Slow Univers (ZOFRAN 4-14 IV Push, ity of (PF)) 01:30: Q6HPRN, [place] injection 4 58 Starting Medi gordon mg on [facility] 05/26/22 at 2030, Until Discontinu ed, Routine, Nausea and Vomiting (N/V) morpHINE (2 2022- No 4mg 4 mg, Slow Univers mg/mL) 05-27 IV Push, ity of injection 4 01:30: 01:29 Q4HPRN, [place] mg 55 :55 Starting Medical on [facility] Branch 05/26/22 at 2030, Until 05/27/22 at 2029, Routine, Pain (scale 7-10) methocarbam 2022- No 500mg 500 mg, U nivers oL 05-27 Oral, ity of (ROBAXIN) 00:00: 23:10 ONCE, 1 [place] tablet 500 00 :00 dose, On Medic al mg [facility] Branch 05/26/22 at 1900, Routine traMADoL 2022- No 50mg 50 mg, Univer s (ULTRAM) 05-26 Oral, ity of tablet 50 23:45: 23:10 ONCE, 1 [place] mg 00 :00 dose, On [facility] 05/26/22 at 1845, Routine gabapentin 2022- No 300mg 300 mg, Un mary (NEURONTIN) 05-26 Oral, ity of capsule 300 23:00: 23:10 ONCE, 1 [place] mg 00 :00 dose, On [facility] 05/26/22 at 1800, MICHELLE methylpredn 2022- No 125mg 125 mg, U nivers isolone sod 05-26 Slow IV ity of succ 22:15: 21:28 Push, [place] (SOLU-MEDRO 00 :00 ONCE, 1 Medic al L) dose, On Branch injection [place] 125 mg 05/26/22 at 1715, MICHELLE furosemide No 40mg 40 mg, IV U nivers (LASIX) 05-26 Push, ity of injection 21:15: 21:19 ONCE, 1 [place] 40 mg 00 :00 dose, On [facility] 05/26/22 at 1615, MICHELLE ketorolac No 30mg 30 mg, Unive rs (TORADOL) 05-23 Intramuscu ity of injection 23:00: 22:35 lar, ONCE, [place] 30 mg 00 :00 1 dose, On [facility] 05/23/22 at 1800, Routine diazePAM No 2.5mg 2.5 mg, Univ ers (VALIUM) 05-23 Oral, ity of tablet 2.5 22:45: 23:09 ONCE, 1 [place] mg 00 :00 dose, On [facility] Branch 05/23/22 at 1745, MICHELLE HYDROcodone 2022- No 1{tbl} 1 tablet, Univers -acetaminop 05-23 Oral, ONCE i ty of hen (NORCO) 11:45: 11:00 NOW, 1 [place] as 10-325 mg 00 :00 dose, On Medica l tablet 1 Mon Branch tablet 4/10/23 at 0645, MICHELLE gabapentin 2023-0 2023- No 600mg 600 mg, Un mary (NEURONTIN) 4-10 04-10 Oral, ity of capsule 600 09:00: 09:09 ONCE, 1 [place] mg 00 :00 dose, On Medical [facility] Branch 05/23/22 at 0400, MICHELLE dexamethaso 2023-0 2023- No 10mg 10 mg, Uni vers ne sod phos -11 16-10 Intramuscu i ty of PF 09:00: 09:07 lar, ONCE, [place] injection 00 :00 1 dose, On Medi gordon 10 mg [facility] Branch 05/23/22 at 0400, 1 mL gabapentin 3-0 Yes [id number] 300mg Take 1 Univers 300 mg 4-10 capsule by ity of capsule 00:00: mouth in [address] and 1 capsule at noon and 1 capsule in the evening. gabapentin 2023-0 Yes [id number] 300mg Take 1 Univers 300 mg 4-10 capsule by ity of capsule 00:00: mouth in [address] and 1 capsule at noon and 1 capsule in the evening. gabapentin 2023-0 Yes [id number] 300mg Take 1 Univers 300 mg 4-10 capsule by ity of capsule 00:00: mouth in [address] morning [place] and 1 capsule at noon and 1 capsule in the evening. ketorolac 2023-0 Yes [id number] 10mg Take 1 U nivers 10 mg 4-10 tablet by ity of tablet 00:00: mouth [place] [address] every 6 Medical (six) Branch hours as needed for Pain (scale 7-10). gabapentin 2023-0 Yes [id number] 300mg Take 1 Univers 300 mg 4-10 capsule by ity of capsule 00:00: mouth in [address] morning [place] and 1 capsule at noon and 1 capsule in the evening. ketorolac 2023-0 Yes [id number] 10mg Take 1 U nivers 10 mg 4-10 tablet by ity of tablet 00:00: mouth [place] [address] every 6 Medical (six) Branch hours as needed for Pain (scale 7-10). gabapentin 2023-0 Yes [id number] 300mg Take 1 Univers 300 mg 4-10 capsule by ity of capsule 00:00: mouth in [place] 00 the Medical morning Branch and 1 capsule at noon and 1 capsule in the evening. ketorolac 2023-0 Yes [id number] 10mg Take 1 U nivers 10 mg 4-10 tablet by ity of tablet 00:00: mouth [place] 00 every 6 Medical (six) Branch hours as needed for Pain (scale 7-10). gabapentin 2023-0 Yes [id number] 300mg Take 1 Univers 300 mg 4-10 capsule by ity of capsule 00:00: mouth in [place] 00 the Medical morning Branch and 1 capsule at noon and 1 capsule in the evening. ketorolac 2023-0 Yes [id number] 10mg Take 1 U nivers 10 mg 4-10 tablet by ity of tablet 00:00: mouth [place] 00 every 6 Medical (six) Branch hours as needed for Pain (scale 7-10). gabapentin 2023-0 Yes [id number] 300mg Take 1 Univers 300 mg 4-10 capsule by ity of capsule 00:00: mouth in [place] 00 the Medical morning Branch and 1 capsule at noon and 1 capsule in the evening. ketorolac 2023-0 Yes [id number] 10mg Take 1 U nivers 10 mg 4-10 tablet by ity of tablet 00:00: mouth [place] 00 every 6 Medical (six) Branch hours as needed for Pain (scale 7-10). gabapentin 2023-0 Yes [id number] 300mg Take 1 Univers 300 mg 4-10 capsule by ity of capsule 00:00: mouth in [place] 00 the Medical morning Branch and 1 capsule at noon and 1 capsule in the evening. ketorolac 2023-0 Yes [id number] 10mg Take 1 U nivers 10 mg 4-10 tablet by ity of tablet 00:00: mouth [place] 00 every 6 Medical (six) Branch hours as needed for Pain (scale 7-10). gabapentin 2023-0 2023- No [id number] 300mg Take 1 Univers 300 mg 4-10 04-25 capsule by ity of capsule 00:00: 00:00 mouth in [place] 00 :00 the Medical morning Branch and 1 capsule at noon and 1 capsule in the evening. methocarbam 2023-0 2023- No [id number] 500mg Take 1 Univers oL 500 mg 4-10 04-25 tablet by ity of tablet 00:00: 00:00 mouth 4 [place] 00 :00 (four) Medical times Branch daily for 7 days. ketorolac 2022-0 2022- No [id number] 10mg Take 1 Univers 10 mg 4-10 -25 tablet by ity of tablet 00:00: 00:00 mouth [place] 00 :00 every 6 Medical (six) Branch hours as needed for Pain (scale 7-10). methocarbam 2022-0 2022- Yes [id number] 500mg Take 1 Univers oL 500 mg 4-10 -18 tablet by ity of tablet 00:00: 04:59 mouth 4 [place] 00 :00 (four) Medical times Branch daily for 7 days. methocarbam 2022-0 2022- Yes [id number] 500mg Take 1 Univers oL 500 mg 4-10 -18 tablet by ity of tablet 00:00: 04:59 mouth 4 [place] 00 :00 (four) Medical times Branch daily for 7 days. methocarbam 2022-0 2022- Yes [id number] 500mg Take 1 Univers oL 500 mg 4-10 -18 tablet by ity of tablet 00:00: 04:59 mouth 4 [place] 00 :00 (four) Medical times Branch daily for 7 days. methocarbam 2022-0 2022- No [id number] 500mg Take 1 Univers oL 500 mg 4-10 -18 tablet by ity of tablet 00:00: 04:59 mouth 4 [place] 00 :00 (four) Medical times Branch daily for 7 days. methocarbam 2022-0 2022- No [id number] 500mg Take 1 Univers oL 500 mg 4-10 -18 tablet by ity of tablet 00:00: 04:59 mouth 4 [place] 00 :00 (four) Medical times Branch daily for 7 days. mirtazapine 3-0 Yes [id number] 45mg Take 1 Univers 45 mg 2-23 tablet by ity of tablet 00:00: mouth at [place] 00 bedtime. Medical Branch mirtazapine 3-0 Yes [id number] 45mg Take 1 Univers 45 mg 2-23 tablet by ity of tablet 00:00: mouth at [place] 00 bedtime. Medical Branch mirtazapine 3-0 Yes [id number] 45mg Take 1 Univers 45 mg 2-23 tablet by ity of tablet 00:00: mouth at [place] [address] bedtime. Medical Branch mirtazapine 2023-0 Yes [id number] 45mg Take 1 Univers 45 mg 2-23 tablet by ity of tablet 00:00: mouth at [place] [address] bedtime. Medical Branch mirtazapine 2022-0 Yes [id number] 45mg Take 1 Univers 45 mg 2-23 tablet by ity of tablet 00:00: mouth at [place] [address] bedtime. Medical Branch mirtazapine 2022-0 Yes [id number] 45mg Take 1 Univers 45 mg 2-23 tablet by ity of tablet 00:00: mouth at [place] [address] bedtime. Medical Branch mirtazapine 2022-0 Yes [id number] 45mg Take 1 Univers 45 mg 2-23 tablet by ity of tablet 00:00: mouth at [place] [address] bedtime. Medical Branch mirtazapine 2022-0 Yes [id number] 45mg Take 1 Univers 45 mg 2-23 tablet by ity of tablet 00:00: mouth at [place] [address] bedtime. Medical Branch mirtazapine 2022-0 Yes [id number] 45mg Take 1 Univers 45 mg 2-23 tablet by ity of tablet 00:00: mouth at [place] [address] bedtime. Medical Branch mirtazapine 2022-0 Yes [id number] 45mg Take 1 Univers 45 mg 2-23 tablet by ity of tablet 00:00: mouth at [place] [address] bedtime. Medical Branch mirtazapine 2022-0 Yes [id number] 45mg Take 1 Univers 45 mg 2-23 tablet by ity of tablet 00:00: mouth at [place] [address] bedtime. Medical Branch mirtazapine 2022-0 Yes [id number] 45mg Take 1 Univers 45 mg 2-23 tablet by ity of tablet 00:00: mouth at [place] [address] bedtime. Medical Branch mirtazapine 2022-0 Yes [id number] 45mg Take 1 Univers 45 mg 2-23 tablet by ity of tablet 00:00: mouth at [place] [address] bedtime. Medical Branch mirtazapine 3-0 Yes [id number] 45mg Take 1 Univers 45 mg 2-23 tablet by ity of tablet 00:00: mouth at [place] [address] bedtime. Medical Branch mirtazapine 2022-0 Yes [id number] 45mg Take 1 Univers 45 mg 2-23 tablet by ity of tablet 00:00: mouth at [place] [address] bedtime. Medical Branch mirtazapine 2022-0 Yes [id number] 45mg Take 1 Univers 45 mg 2-23 tablet by ity of tablet 00:00: mouth at [place] [address] bedtime. Medical Branch mirtazapine 2022-0 Yes [id number] 45mg Take 1 [facility] 45 mg 2-23 tablet by ity of tablet 00:00: mouth at [place] [address] bedtime. Medical Branch mirtazapine 2022-0 Yes [id number] 45mg Take 1 [facility] 45 mg 2-23 tablet by ity of tablet 00:00: mouth at [place] [address] bedtime. Medical Branch mirtazapine 2022-0 Yes [id number] 45mg Take 1 [facility] 45 mg 2-23 tablet by ity of tablet 00:00: mouth at [place] [address] bedtime. Medical Branch mirtazapine 2022-0 Yes [id number] 45mg Take 1 [facility] 45 mg 2-23 tablet by ity of tablet 00:00: mouth at [place] [address] bedtime. Medical Branch mirtazapine 2022-0 Yes [id number] 45mg Take 1 [facility] 45 mg 2-23 tablet by ity of tablet 00:00: mouth at [place] [address] bedtime. Medical Branch mirtazapine 2022-0 Yes [id number] 45mg Take 1 [facility] 45 mg 2-23 tablet by ity of tablet 00:00: mouth at [place] [address] bedtime. Medical Branch mirtazapine 2022-0 Yes [id number] 45mg Take 1 [facility] 45 mg 2-23 tablet by ity of tablet 00:00: mouth at [place] [address] bedtime. Medical Branch mirtazapine 2022-0 Yes [id number] 45mg Take 1 [facility] 45 mg 2-23 tablet by ity of tablet 00:00: mouth at [place] [address] bedtime. Medical Branch mirtazapine 2022-0 Yes [id number] 45mg Take 1 [facility] 45 mg 2-23 tablet by ity of tablet 00:00: mouth at [place] [address] bedtime. Medical Branch mirtazapine 2022-0 3- No [id number] 45mg Take 1 [facility] 45 mg 2-23 04-25 tablet by ity of tablet 00:00: 00:00 mouth at [place] 00 :00 bedtime. Medical Branch mirtazapine 2021-1 Yes [id number] 30mg Take 1 [facility] 30 mg 2-21 tablet by ity of tablet 00:00: mouth at [place] [address] bedtime. Medical Branch mirtazapine 2021-02 Yes [id number] 30mg Take 1 [facility] 30 mg 2-21 tablet by ity of tablet 00:00: mouth at [place] [address] bedtime. Medical Branch mirtazapine 2021-02 Yes [id number] 30mg Take 1 [facility] 30 mg 2-21 tablet by ity of tablet 00:00: mouth at [place] [address] bedtime. Medical Branch mirtazapine 2021-02 Yes [id number] 30mg Take 1 [facility] 30 mg 2-21 tablet by ity of tablet 00:00: mouth at [place] [address] bedtime. Medical Branch mirtazapine 2021-02 Yes [id number] 30mg Take 1 [facility] 30 mg 2-21 tablet by ity of tablet 00:00: mouth at [place] [address] bedtime. Medical Branch mirtazapine 2021-02 Yes [id number] 30mg Take 1 [facility] 30 mg 2-21 tablet by ity of tablet 00:00: mouth at [place] [address] bedtime. Medical Branch mirtazapine 2021-02 Yes [id number] 30mg Take 1 [facility] 30 mg 2-21 tablet by ity of tablet 00:00: mouth at [place] [address] bedtime. Medical Branch mirtazapine 2021-02 Yes [id number] 30mg Take 1 [facility] 30 mg 2-21 tablet by ity of tablet 00:00: mouth at [place] [address] bedtime. Medical Branch mirtazapine 2021-02 Yes [id number] 30mg Take 1 [facility] 30 mg 2-21 tablet by ity of tablet 00:00: mouth at [place] [address] bedtime. Medical Branch mirtazapine 2021-02- No [id number] 30mg Take 1 [facility] 30 mg 2-21 02-23 tablet by ity of tablet 00:00: 00:00 mouth at [place] 00 :00 bedtime. Medical Branch mirtazapine 2021-02- No [id number] 30mg Take 1 [facility] 30 mg 2-21 02-23 tablet by ity of tablet 00:00: 00:00 mouth at [place] 00 :00 bedtime. Medical Branch traMADoL 50 2021-02 Yes 50mg Take 1 Univ ers mg tablet 2-08 tablet by ity o f 00:00: mouth in [place] 00 the Medical morning Branch and 1 tablet at noon and 1 tablet in the evening. traMADoL 50 2021-02 Yes 50mg Take 1 Univ ers mg tablet 2-08 tablet by ity o f 00:00: mouth in [place] 00 the Medical morning Branch and 1 tablet at noon and 1 tablet in the evening. traMADoL 50 2021-02 Yes 50mg Take 1 Univ ers mg tablet 2-08 tablet by ity o f 00:00: mouth in [place] 00 the Medical morning Branch and 1 tablet at noon and 1 tablet in the evening. traMADoL 50 2021-02 Yes 50mg Take 1 Univ ers mg tablet 2-08 tablet by ity o f 00:00: mouth in [place] 00 the Medical morning Branch and 1 tablet at noon and 1 tablet in the evening. traMADoL 50 2021-02 Yes 50mg Take 1 Univ ers mg tablet 2-08 tablet by ity o f 00:00: mouth in [place] [address] the Medical morning Branch and 1 tablet at noon and 1 tablet in the evening. traMADoL 50 2021-02 Yes 50mg Take 1 Univ ers mg tablet 2-08 tablet by ity o f 00:00: mouth in [place] the Medical morning Branch and 1 tablet at noon and 1 tablet in the evening. traMADoL 50 2021-02 Yes 50mg Take 1 Univ ers mg tablet 2-08 tablet by ity o f 00:00: mouth in [place] the Medical morning Branch and 1 tablet at noon and 1 tablet in the evening. traMADoL 50 2021-02 Yes 50mg Take 1 Univ ers mg tablet 2-08 tablet by ity o f 00:00: mouth in [place] the Medical morning Branch and 1 tablet at noon and 1 tablet in the evening. traMADoL 50 2021-02 Yes 50mg Take 1 Univ ers mg tablet 2-08 tablet by ity o f 00:00: mouth in [place] the Medical morning Branch and 1 tablet at noon and 1 tablet in the evening. traMADoL 50 2021- Yes 50mg Take 1 Univ ers mg tablet 2-08 tablet by ity o f 00:00: mouth in [place] [address] the Medical morning Branch and 1 tablet at noon and 1 tablet in the evening. traMADoL 50 2021-02 Yes 50mg Take 1 Univ ers mg tablet 2-08 tablet by ity o f 00:00: mouth in [place] [address] the Medical morning Branch and 1 tablet at noon and 1 tablet in the evening. traMADoL 50 2021-02 Yes 50mg Take 1 Univ ers mg tablet 2-08 tablet by ity o f 00:00: mouth in [place] 00 the Medical morning Branch and 1 tablet at noon and 1 tablet in the evening. traMADoL 50 2021-02 Yes 50mg Take 1 Univ ers mg tablet 2-08 tablet by ity o f 00:00: mouth in [place] 00 the Medical morning Branch and 1 tablet at noon and 1 tablet in the evening. traMADoL 50 2021-02 Yes 50mg Take 1 Univ ers mg tablet 2-08 tablet by ity o f 00:00: mouth in [place] [address] the Medical morning Branch and 1 tablet at noon and 1 tablet in the evening. traMADoL 50 2021-02 Yes 50mg Take 1 Univ ers mg tablet 2-08 tablet by ity o f 00:00: mouth in [place] [address] the Medical morning Branch and 1 tablet at noon and 1 tablet in the evening. traMADoL 50 2021-02 Yes 50mg Take 1 Univ ers mg tablet 2-08 tablet by ity o f 00:00: mouth in [place] [address] the Medical morning Branch and 1 tablet at noon and 1 tablet in the evening. traMADoL 50 2021-02 Yes 50mg Take 1 Univ ers mg tablet 2-08 tablet by ity o f 00:00: mouth in [place] [address] the Medical morning Branch and 1 tablet at noon and 1 tablet in the evening. traMADoL 50 2021-02 Yes 50mg Take 1 Univ ers mg tablet 2-08 tablet by ity o f 00:00: mouth in [place] [address] the Medical morning Branch and 1 tablet at noon and 1 tablet in the evening. traMADoL 50 2021-02 Yes 50mg Take 50 mg [facility] mg tablet 2-08 by mouth ity of 00:00: in the [place] [address] morning Medical and 50 mg Branch at noon and 50 mg in the evening. traMADoL 50 2021-02 Yes 50mg Take 50 mg [facility] mg tablet 2-08 by mouth ity of 00:00: in the [place] [address] morning Medical and 50 mg Branch at noon and 50 mg in the evening. traMADoL 50 2021-02 Yes 50mg Take 50 mg [facility] mg tablet 2-08 by mouth ity of 00:00: in the [place] morning Medical and 50 mg Branch at noon and 50 mg in the evening. traMADoL 50 2021-02 Yes 50mg Take 50 mg [facility] mg tablet 2-08 by mouth ity of 00:00: in the [place] 00 morning Medical and 50 mg Branch at noon and 50 mg in the evening. traMADoL 50 2021- Yes 50mg Take 50 mg [facility] mg tablet 2-08 by mouth ity of 00:00: in the [place] 00 morning Medical and 50 mg Branch at noon and 50 mg in the evening. traMADoL 50 2021-02 Yes 50mg Take 50 mg [facility] mg tablet 2-08 by mouth ity of 00:00: in the [place] 00 morning Medical and 50 mg Branch at noon and 50 mg in the evening. traMADoL 50 2021-02 Yes 50mg Take 50 mg [facility] mg tablet 2-08 by mouth ity of 00:00: in the [place] 00 morning Medical and 50 mg Branch at noon and 50 mg in the evening. traMADoL 50 2021-02 Yes 50mg Take 50 mg [facility] mg tablet 2-08 by mouth ity of 00:00: in the [place] morning Medical and 50 mg Branch at noon and 50 mg in the evening. traMADoL 50 2021-02 Yes 50mg Take 50 mg [facility] mg tablet 2-08 by mouth ity of 00:00: in the [place] morning Medical and 50 mg Branch at noon and 50 mg in the evening. traMADoL 50 2021-02 Yes 50mg Take 50 mg [facility] mg tablet 2-08 by mouth ity of 00:00: in the [place] 00 morning Medical and 50 mg Branch at noon and 50 mg in the evening. traMADoL 50 2021-02 Yes 50mg Take 50 mg [facility] mg tablet 2-08 by mouth ity of 00:00: in the [place] 00 morning Medical and 50 mg Branch at noon and 50 mg in the evening. traMADoL 50 2021-1 Yes 50mg Take 50 mg [facility] mg tablet 2-08 by mouth ity of 00:00: in the [place] 00 morning Medical and 50 mg Branch at noon and 50 mg in the evening. traMADoL 50 2021-1 Yes 50mg Take 50 mg [facility] mg tablet 2-08 by mouth ity of 00:00: in the [place] 00 morning Medical and 50 mg Branch at noon and 50 mg in the evening. traMADoL 50 2021- Yes 50mg Take 50 mg [facility] mg tablet 2-08 by mouth ity of 00:00: in the [place] 00 morning Medical and 50 mg Branch at noon and 50 mg in the evening. traMADoL 50 2021-02 Yes 50mg Take 1 [facility] ers mg tablet 2-08 tablet by ity o f 00:00: mouth in [place] 00 the Medical morning Branch and 1 tablet at noon and 1 tablet in the evening. traMADoL 50 2021-02 Yes 50mg Take 1 [facility] ers mg tablet 2-08 tablet by ity o f 00:00: mouth in [place] 00 the Medical morning Branch and 1 tablet at noon and 1 tablet in the evening. traMADoL 50 2021-02 Yes 50mg Take 1 [facility] ers mg tablet 2-08 tablet by ity o f 00:00: mouth in [place] 00 the Medical morning Branch and 1 tablet at noon and 1 tablet in the evening. traMADoL 50 2021-02 No 50mg Take 1 [facility] vers mg tablet 2-08 04-25 tablet by ity of 00:00: 00:00 mouth in [place] 00 :00 the Medical morning Branch and 1 tablet at noon and 1 tablet in the evening. mirtazapine 2021-02 Yes [id number] 15mg Take 1 [facility] 15 mg 1-21 tablet by ity of tablet 00:00: mouth at [place] [address] bedtime. Medical Branch mirtazapine 2021-02 Yes [id number] 15mg Take 1 [facility] 15 mg 1-21 tablet by ity of tablet 00:00: mouth at [place] [address] bedtime. Medical Branch mirtazapine 2021-02 Yes [id number] 15mg Take 1 [facility] 15 mg 1-21 tablet by ity of tablet 00:00: mouth at [place] 00 bedtime. Medical Branch mirtazapine 2021-02- No [id number] 15mg Take 1 [facility] 15 mg 1-21 12-21 tablet by ity of tablet 00:00: 00:00 mouth at [place] 00 :00 bedtime. Medical Branch mirtazapine 2021-02- No [id number] 15mg Take 1 [facility] 15 mg 1-21 12-21 tablet by ity of tablet 00:00: 00:00 mouth at [place] 00 :00 bedtime. Medical Branch vortioxetin 2021-02 Yes [id number] 5mg Take 1 [facility] e 0-20 tablet by ity of (TRINTELLIX 00:00: mouth in [place] ) 5 mg Tab 00 the Medical morning. Branch vortioxetin 2021-02 Yes [id number] 5mg Take 1 [facility] e 0-20 tablet by ity of (TRINTELLIX 00:00: mouth in [place] ) 5 mg Tab 00 the Medical morning. Branch vortioxetin 2021-02 Yes [id number] 5mg Take 1 [facility] e 0-20 tablet by ity of (TRINTELLIX 00:00: mouth in [place] ) 5 mg Tab 00 the Medical morning. Branch vortioxetin 2021-02 Yes [id number] 5mg Take 1 [facility] e 0-20 tablet by ity of (TRINTELLIX 00:00: mouth in [place] ) 5 mg Tab 00 the Medical morning. Branch vortioxetin 2021-02 Yes [id number] 5mg Take 1 [facility] e 0-20 tablet by ity of (TRINTELLIX 00:00: mouth in [place] ) 5 mg Tab 00 the Medical morning. Branch vortioxetin 2021-02 Yes [id number] 5mg Take 1 [facility] e 0-20 tablet by ity of (TRINTELLIX 00:00: mouth in [place] ) 5 mg Tab 00 the Medical morning. Branch vortioxetin 2021-02- No [id number] 5mg Take 1 [facility] e 0-20 11-21 tablet by ity of (TRINTELLIX 00:00: 00:00 mouth in [place] ) 5 mg Tab 00 :00 the Medical morning. Branch vortioxetin 2021-02- No [id number] 5mg Take 1 [facility] e 0-20 11-21 tablet by ity of (TRINTELLIX 00:00: 00:00 mouth in [place] ) 5 mg Tab 00 :00 the Medical morning. Branch DULoxetine Yes [id number] 20mg Take 1 [facility] 20 mg 9-20 capsule by ity of capsule 00:00: mouth in [place] 00 the Medical morning. Branch DULoxetine Yes [id number] 20mg Take 1 [facility] 20 mg 9-20 capsule by ity of capsule 00:00: mouth in [place] 00 the Medical morning. Branch DULoxetine Yes [id number] 20mg Take 1 [facility] 20 mg 9-20 capsule by ity of capsule 00:00: mouth in [place] 00 the Medical morning. Branch DULoxetine 2-0 Yes [id number] 20mg Take 1 [facility] 20 mg 9-20 capsule by ity of capsule 00:00: mouth in [place] 00 the Medical morning. Branch DULoxetine 2-0 Yes [id number] 20mg Take 1 [facility] 20 mg 9-20 capsule by ity of capsule 00:00: mouth in [place] 00 the Medical morning. Branch DULoxetine 2-0 2022- No [id number] 20mg Take 1 [facility] 20 mg 9-20 10-20 capsule by ity of capsule 00:00: 00:00 mouth in [place] 00 :00 the Medical morning. Branch DULoxetine 2021-0 2- No [id number] 20mg Take 1 [facility] 20 mg 9-20 10-20 capsule by ity of capsule 00:00: 00:00 mouth in [place] 00 :00 the Medical morning. Branch gabapentin 2-0 Yes [id number] 300mg Take 1 [facility] 300 mg 8-23 capsule by ity of capsule 00:00: mouth at [place] [address] bedtime. Medical Branch gabapentin 2-0 Yes [id number] 300mg Take 1 [facility] 300 mg 8-23 capsule by ity of capsule 00:00: mouth at [place] [address] bedtime. Medical Branch gabapentin 2-0 Yes [id number] 300mg Take 1 [facility] 300 mg 8-23 capsule by ity of capsule 00:00: mouth at [place] [address] bedtime. Medical Branch gabapentin 2022-0 2022- No [id number] 300mg Take 1 [facility] 300 mg 8-23 09-20 capsule by ity of capsule 00:00: 00:00 mouth at [place] 00 :00 bedtime. Medical Branch gabapentin 2022-0 2022- No [id number] 300mg Take 1 [facility] 300 mg 8-23 09-20 capsule by ity of capsule 00:00: 00:00 mouth at [place] 00 :00 bedtime. Medical Branch mirtazapine 2022-0 2022- No 30mg Take 30 mg [facility] 30 mg 823 by mouth ity of tablet 00:00: 00:00 in the [place] 00 :00 morning. Medical Branch mirtazapine 2022-0 2022- No 30mg Take 30 mg [facility] 30 mg 09-20 by mouth ity of tablet 00:00: 00:00 in the [place] 00 :00 morning. Medical Branch sertraline 2020-0 [...] 0.9% 6-09 (Same as: l 18:36: BD [place] 00 Posiflush) Saline No Notes: [facility] Flush 0.9% 6-09 (Same as: l 18:36: BD [place] 00 Posiflush) Saline No Notes: [facility] Flush 0.9% 6-09 (Same as: l 18:36: BD [place] 00 Posiflush) Saline No Notes: [facility] Flush 0.9% 6-09 (Same as: l 18:36: BD [place] 00 Posiflush) Saline No Notes: [facility] Flush 0.9% 6-09 (Same as: l 18:36: BD [place] 00 Posiflush) Saline No Notes: [facility] Flush 0.9% 6-09 (Same as: l 18:36: BD [place] 00 Posiflush) Saline No Notes: [facility] Flush 0.9% 6-09 (Same as: l 18:36: BD [place] 00 Posiflush) Saline No Notes: [facility] Flush 0.9% 6-09 (Same as: l 18:36: BD [place] 00 Posiflush) Saline No Notes: [facility]oria Flush 0.9% 6-09 (Same as: l 18:36: BD [place] 00 Posiflush) Saline No Notes: [facility]oria Flush 0.9% 6-09 (Same as: l 18:36: BD [place] 00 Posiflush) Saline No Notes: [facility]oria Flush 0.9% 6-09 (Same as: l 18:36: BD [place] 00 Posiflush) Saline No Notes: [facility]oria Flush 0.9% 6-09 (Same as: l 18:36: BD [place] 00 Posiflush) Saline No Notes: Memoria Flush 0.9% 6-09 (Same as: l 18:36: BD [place] 00 Posiflush) Saline No Notes: [facility] Flush 0.9% 6-09 (Same as: l 18:36: BD [place] 00 Posiflush) Saline No Notes: [facility]oria Flush 0.9% 6-09 (Same as: l 18:36: BD [place] 00 Posiflush) Saline No Notes: Memoria Flush 0.9% 6-09 (Same as: l 18:36: BD [place] 00 Posiflush) Saline No Notes: Memoria Flush 0.9% 6-09 (Same as: l 18:36: BD [place] 00 Posiflush) Saline No Notes: Memoria Flush 0.9% 6-09 (Same as: l 18:36: BD [place] 00 Posiflush) Saline No Notes: Memoria Flush 0.9% 6-09 (Same as: l 18:36: BD [place] 00 Posiflush) Saline No Notes: Memoria Flush 0.9% 6-09 (Same as: l 18:36: BD [place] 00 Posiflush) Saline No Notes: Memoria Flush 0.9% 6-09 (Same as: l 18:36: BD [place] 00 Posiflush) Saline No Notes: Memoria Flush 0.9% 6-09 (Same as: l 18:36: BD [place] 00 Posiflush) Saline No Notes: Memoria Flush 0.9% 6-09 (Same as: l 18:36: BD [place] 00 Posiflush) Saline No Notes: Memoria Flush 0.9% 6-09 (Same as: l 18:36: BD [place] 00 Posiflush) Saline No Notes: Memoria Flush 0.9% 6-09 (Same as: l 18:36: BD [place] 00 Posiflush) Saline No Notes: Memoria Flush 0.9% 6-09 (Same as: l 18:36: BD [place] 00 Posiflush) Saline No Notes: Memoria Flush 0.9% 6-09 (Same as: l 18:36: BD [place] 00 Posiflush) Saline No Notes: Memoria Flush 0.9% 6-09 (Same as: l 18:36: BD [place] 00 Posiflush) Saline No Notes: Memoria Flush 0.9% 6-09 (Same as: l 18:36: BD [place] 00 Posiflush) Saline No Notes: Memoria Flush 0.9% 6-09 (Same as: l 18:36: BD [place] 00 Posiflush) Saline No Notes: Memoria Flush 0.9% 6-09 (Same as: l 18:36: BD [place] 00 Posiflush) Saline No Notes: Memoria Flush 0.9% 6-09 (Same as: l 18:36: BD [place] 00 Posiflush) Saline No Notes: Memoria Flush 0.9% 6-09 (Same as: l 18:36: BD [place] 00 Posiflush) Saline No Notes: Memoria Flush 0.9% 6-09 (Same as: l 18:36: BD [place] 00 Posiflush) Saline No Notes: Memoria Flush 0.9% 6-09 (Same as: l 18:36: BD [place] 00 Posiflush) Saline No Notes: Memoria Flush 0.9% 6-09 (Same as: l 18:36: BD [place] 00 Posiflush) Saline No Notes: Memoria Flush 0.9% 6-09 (Same as: l 18:36: BD [place] 00 Posiflush) Vital Signs Vital Name Observation Time Observation Value Comments Source Systolic blood 2022-07-23 17:03:00 160 mm[Hg] [facility]astolic blood 2022-07-23 17:03:00 83 mm[Hg] [facility] Heart rate 2022-07-23 17:03:00 68 /min [facility] Body temperature 2022-07-23 17:03:00 37.22 [facility] Respiratory rate 2022-07-23 17:03:00 16 /min [facility] Body height 2022-07-23 17:03:[address] [facility] Body weight 2022-07-23 17:03:00 90.719 kg [facility] [place] [facility] BMI 2022-07-23 17:03:00 32.28 kg/m2 [facility] [place] [facility] Oxygen saturation in 2022-07-23 17:03:00 99 /min [facility] of Arterial blood by [facility] Pulse oximetry Branch Systolic blood 2022-07-20 09:47:00 129 mm[Hg] Univer sity of pressure [place] [facility] Diastolic blood 2022-07-20 09:47:00 68 mm[Hg] Unive rsity of pressure [place] [facility] Heart rate 2022-07-20 09:47:00 90 /min [facility] [place] [facility] Body temperature 2022-07-20 09:47:00 36.72 [facility] [place] [facility] Respiratory rate 2022-07-20 09:47:00 17 /min [facility] [place] [facility] Oxygen saturation in 2022-07-20 09:47:00 100 /min [facility] of Arterial blood by [facility] Pulse oximetry Branch Systolic blood 2022-07-16 14:11:00 145 mm[Hg] Univer sity of pressure [place] [facility] Diastolic blood 2022-07-16 14:11:00 73 mm[Hg] Unive rsity of pressure [place] [facility] Heart rate 2022-07-16 14:11:00 62 /min [facility] [place] [facility] Body temperature 2022-07-16 14:11:00 36.33 [place] [place] [facility] Respiratory rate 2022-07-16 14:11:00 20 /min [facility] [place] [facility] Oxygen saturation in 2022-07-16 14:11:00 100 /min [facility] of Arterial blood by [facility] Pulse oximetry Branch WEIGHT 2022-07-12 06:00:00 86 kg WEIGHT 2022-07-12 06:00:00 86 kg Systolic blood 2022-07-11 15:10:00 117 mm[Hg] Univer sity of pressure [place] [facility] Diastolic blood 2022-07-11 15:10:00 68 mm[Hg] Unive rsity of pressure [place] [facility] Heart rate 2022-07-11 15:10:00 74 /min [facility] [place] [facility] Body temperature 2022-07-11 15:10:00 36.94 [place] [facility] [place] [facility] Respiratory rate 2022-07-11 15:10:00 18 /min [facility] [place] [facility] Body weight 2022-07-11 15:10:00 90.719 kg [facility] [place] [facility] BMI 2022-07-11 15:10:00 32.28 kg/m2 [facility] [place] [facility] Oxygen saturation in 2022-07-11 15:10:00 98 /min [facility] Arterial blood by [place] [employer] [facility] Pulse oximetry Branch Systolic blood 2022-07-11 11:20:00 133 mm[Hg] Univer sity of pressure [place] [facility] Diastolic blood 2022-07-11 11:20:00 69 mm[Hg] Unive rsity of pressure [place] [facility] Heart rate 2022-07-11 11:20:00 78 /min [facility] [place] [facility] Respiratory rate 2022-07-11 11:20:00 18 /min [facility] [place] [facility] Oxygen saturation in 2022-07-11 11:20:00 99 /min [facility] of Arterial blood by [facility] Pulse oximetry Branch Body temperature 2022-07-11 09:24:00 36.83 [facility] [place] [facility] Body weight 2022-07-11 09:24:00 90.719 kg [facility] [place] [facility] BMI 2022-07-11 09:24:00 32.28 kg/m2 [facility] [place] [facility] Systolic blood 2022-07-08 18:24:00 130 mm[Hg] Univer sity of pressure [place] [facility] Diastolic blood 2022-07-08 18:24:00 57 mm[Hg] Unive rsity of pressure [place] [facility] Heart rate 2022-07-08 18:24:00 87 /min [facility] [place] [facility] Body temperature 2022-07-08 18:24:00 36.72 [place] [facility] [place] [facility] Respiratory rate 2022-07-08 18:24:00 18 /min [facility] [place] [facility] Body weight 2022-07-08 18:24:00 90.719 kg [facility] [place] [facility] BMI 2022-07-08 18:24:00 32.28 kg/m2 [facility] [place] [facility] Oxygen saturation in 2022-07-08 18:24:00 97 /min [facility] Arterial blood by [place] [employer] [facility] Pulse oximetry Branch Systolic blood 2022-07-05 14:00:00 155 mm[Hg] Univer sity of pressure [place] [facility] [place] Diastolic blood 2022-07-05 14:00:00 80 mm[Hg] Unive rsity of pressure [facility] Heart rate 2022-07-05 14:00:00 76 /min Universi ty of [facility] Body temperature 2022-07-05 14:00:00 37.56 [facility]ita [facility] ers[facility] of [facility] Respiratory rate 2022-07-05 14:00:00 16 /min Univ ersity of [facility] Branch Oxygen saturation in 2022-07-05 14:00:00 98 /min [facility] Arterial blood by [place] [employer] [facility] Pulse oximetry Branch Body weight 2022-07-05 10:49:00 90.719 kg [facility] [place] [facility] [place] BMI 2022-07-05 10:49:00 32.28 kg/m2 [facility] [place] [facility] [place] HEIGHT 2022-06-21 11:16:00 167.6 cm WEIGHT 2022-06-21 11:16:00 87.181 kg HEIGHT 2022-06-21 11:16:00 167.6 cm WEIGHT 2022-06-21 11:16:00 87.181 kg Systolic blood 2022-06-16 16:05:00 112 mm[Hg] Univer sity of pressure [place] [facility] [place] Diastolic blood 2022-06-16 16:05:00 72 mm[Hg] Unive rsity of [facility] Heart rate 2022-06-16 16:05:00 90 /min Universi ty of [facility] Body temperature 2022-06-16 16:05:00 36.72 Nita Univ ersity of [facility] Branch Respiratory rate 2022-06-16 16:05:00 16 /min Univ ersity of [facility] Body height 2022-06-16 16:05:00 167.6 cm [facility] [place] [facility] Body weight 2022-06-16 16:05:00 91.173 kg [facility] [place] [facility] BMI 2022-06-16 16:05:00 32.44 kg/m2 [facility] [place] [facility] [place] Oxygen saturation in 2022-06-16 16:05:00 100 /min [facility] of Arterial blood by [facility] Pulse oximetry Branch Systolic blood 2022-06-07 18:25:00 140 mm[Hg] Univer sity of pressure [place] [facility] Diastolic blood 2022-06-07 18:25:00 74 mm[Hg] Unive rsity of pressure [place] [facility] Heart rate 2022-06-07 18:25:00 70 /min [facility] [place] [facility] [place] Body temperature 2022-06-07 18:25:00 36.44 [facility] [place] [facility] Respiratory rate 2022-06-07 18:25:00 20 /min [facility] [place] [facility] Oxygen saturation in 2022-06-07 18:25:00 100 /min [facility] of Arterial blood by [facility] Pulse oximetry Branch Body weight 2022-05-27 08:00:00 86.456 kg [facility] [place] [facility] [place] BMI 2022-05-27 08:00:00 30.76 kg/m2 [facility] [place] [facility] [place] Body height 2022-05-27 02:20:00 167.6 cm [facility] [place] [facility] Systolic blood 2022-06-03 10:48:00 136 mm[Hg] Univer sity of pressure [place] [facility] Diastolic blood 2022-06-03 10:48:00 67 mm[Hg] Unive rsity of pressure [place] [facility] Heart rate 2022-06-03 10:48:00 80 /min [facility] Body temperature 2022-06-03 10:48:00 36.28 Nita [facility] Respiratory rate 2022-06-03 10:48:00 18 /min [facility] Oxygen saturation in 2022-06-03 10:48:00 97 /min [facility] Arterial blood by [facility] Pulse oximetry Branch Body weight 2022-05-27 08:00:00 86.456 kg [facility] BMI 2022-05-27 08:00:00 30.76 kg/m2 [facility] Body height 2022-05-27 02:20:00 167.6 cm [facility] Systolic blood 2022-05-31 01:00:00 116 mm[Hg] [facility] Diastolic blood 2022-05-31 01:00:00 68 mm[Hg] [facility] Heart rate 2022-05-31 01:00:00 79 /min [facility] Body temperature 2022-05-31 01:00:00 37.78 Nita [facility] Respiratory rate 2022-05-31 01:00:00 14 /min [facility] Oxygen saturation in 2022-05-31 01:00:00 96 /min [facility] blood by [place] [employer] [facility] Pulse oximetry Branch Body weight 2022-05-27 08:00:00 86.456 kg [facility] BMI 2022-05-27 08:00:00 30.76 kg/m2 [facility] Body height 2022-05-27 02:20:00 167.6 cm [facility] Systolic blood 2022-05-29 15:15:00 138 mm[Hg] [facility] Diastolic blood 2022-05-29 15:15:00 81 mm[Hg] [facility] Heart rate 2022-05-29 15:15:00 62 /min [facility] Body temperature 2022-05-29 15:15:00 36.39 Nita [facility] Respiratory rate 2022-05-29 15:15:00 18 /min [facility] Oxygen saturation in 2022-05-29 15:15:00 100 /min [facility] by [place] [employer] [facility] Pulse oximetry Branch Body weight 2022-05-27 08:00:00 86.456 kg [facility] BMI 2022-05-27 08:00:00 30.76 kg/m2 [facility] Body height 2022-05-27 02:20:00 167.6 cm [facility] Systolic blood 2022-05-23 21:38:00 137 mm[Hg] [facility] Diastolic blood 2022-05-23 21:38:00 89 mm[Hg] [facility] Heart rate 2022-05-23 21:38:00 100 /min [facility] Body temperature 2022-05-23 21:38:00 36.67 Nita [facility] Respiratory rate 2022-05-23 21:38:00 20 /min [facility] Body weight 2022-05-23 21:38:00 81.647 kg [facility] BMI 2022-05-23 21:38:00 29.05 kg/m2 [facility] Oxygen saturation in 2022-05-23 21:38:00 100 /min [facility] Arterial blood by [facility] gordon Pulse oximetry Branch Systolic blood 2022-05-23 10:00:00 144 mm[Hg] [facility] Diastolic blood 2022-05-23 10:00:00 79 mm[Hg] [facility] Heart rate 2022-05-23 10:00:00 77 /min [facility] Respiratory rate 2022-05-23 10:00:00 14 /min [facility] Oxygen saturation in 2022-05-23 10:00:00 96 /min [facility] Arterial blood by [facility] Pulse oximetry Branch Body temperature 2022-05-23 08:49:00 36.72 Nita [facility] Body height 2022-05-23 08:49:00 167.6 cm [facility] Body weight 2022-05-23 08:49:00 81.647 kg [facility] BMI 2022-05-23 08:49:00 29.05 kg/m2 [facility] Systolic blood 2022-05-19 14:32:00 153 mm[Hg] [facility] Diastolic blood 2022-05-19 14:32:00 82 mm[Hg] [facility] Heart rate 2022-05-19 14:31:00 86 /min [facility] Body temperature 2022-05-19 14:31:00 36.11 Nita [facility] Body height 2022-05-19 14:31:00 167.6 cm [facility] Body weight 2022-05-19 14:31:00 87.544 kg [facility] BMI 2022-05-19 14:31:00 31.15 kg/m2 [facility] Oxygen saturation in 2022-05-19 14:31:00 97 /min [facility] blood by [facility] Pulse oximetry Branch Systolic blood 2022-05-03 14:51:00 136 mm[Hg] [facility] Diastolic blood 2022-05-03 14:51:00 80 mm[Hg] [facility] Heart rate 2022-05-03 14:51:00 68 /min [facility] Body height 2022-05-03 14:51:00 167.6 cm [facility] Body weight 2022-05-03 14:51:00 84.369 kg [facility] BMI 2022-05-03 14:51:00 30.02 kg/m2 [facility] Systolic blood 2022-04-13 15:41:00 128 mm[Hg] [facility] Diastolic blood 2022-04-13 15:41:00 88 mm[Hg] [facility] Heart rate 2022-04-13 15:41:00 88 /min [facility] Respiratory rate 2022-04-13 15:41:00 18 /min [facility] Body height 2022-04-13 15:41:00 167.6 cm [facility] Body weight 2022-04-13 15:41:00 86.047 kg [facility] BMI 2022-04-13 15:41:00 30.62 kg/m2 [facility] Oxygen saturation in 2022-04-13 15:41:00 96 /min [facility] Arterial blood by [facility] Pulse oximetry Branch Systolic blood 2022-04-07 16:41:00 162 mm[Hg] [facility] Diastolic blood 2022-04-07 16:41:00 89 mm[Hg] [facility] Heart rate 2022-04-07 16:41:00 81 /min [facility] Body weight 2022-04-07 16:39:00 86.183 kg [facility] BMI 2022-04-07 16:39:00 30.67 kg/m2 [facility] Systolic blood 2022-02-02 15:24:00 133 mm[Hg] [facility] Diastolic blood 2022-02-02 15:24:00 82 mm[Hg] [facility] Heart rate 2022-02-02 15:24:00 82 /min [facility] Body height 2022-02-02 15:24:00 167.6 cm [facility] Body weight 2022-02-02 15:24:00 83.008 kg [facility] BMI 2022-02-02 15:24:00 29.54 kg/m2 [facility] Systolic blood 2022-01-03 15:07:00 129 mm[Hg] [facility] Diastolic blood 2022-01-03 15:07:00 82 mm[Hg] [facility] Heart rate 2022-01-03 15:07:00 76 /min [facility] Body temperature 2022-01-03 15:07:00 36.83 Nita [facility] Body height 2022-01-03 15:07:00 167.6 cm [facility] Body weight 2022-01-03 15:07:00 83.462 kg [facility] BMI 2022-01-03 15:07:00 29.70 kg/m2 [facility] Systolic blood 2021-12-08 15:22:00 144 mm[Hg] [facility] Diastolic blood 2021-12-08 15:22:00 84 mm[Hg] [facility] Heart rate 2021-12-08 15:18:00 70 /min [facility] Body height 2021-12-08 15:18:00 167.6 cm [facility] Body weight 2021-12-08 15:18:00 83.326 kg [facility] BMI 2021-12-08 15:18:00 29.65 kg/m2 [facility] Oxygen saturation in 2021-12-08 15:18:00 100 /min [facility] Arterial blood by [facility] Pulse oximetry Branch Systolic blood 2021-12-02 16:05:00 130 mm[Hg] [facility] Diastolic blood 2021-12-02 16:05:00 78 mm[Hg] [facility] Heart rate 2021-12-02 16:05:00 61 /min [facility] Body temperature 2021-12-02 16:05:00 37.22 Nita [facility] Body height 2021-12-02 16:05:00 167.6 cm [facility] Body weight 2021-12-02 16:05:00 84.369 kg [facility] BMI 2021-12-02 16:05:00 30.02 kg/m2 [facility] Systolic blood 2021-11-02 14:34:00 133 mm[Hg] [facility] Diastolic blood 2021-11-02 14:34:00 79 mm[Hg] [facility] Heart rate 2021-11-02 14:34:00 80 /min [facility] Body height 2021-11-02 14:34:00 167.6 cm [facility] Body weight 2021-11-02 14:34:00 84.823 kg [facility] BMI 2021-11-02 14:34:00 30.18 kg/m2 [facility] Systolic blood 2021-10-05 19:18:00 152 mm[Hg] [facility] Diastolic blood 2021-10-05 19:18:00 87 mm[Hg] [facility] Heart rate 2021-10-05 19:18:00 83 /min [facility] Body temperature 2021-10-05 19:18:00 37.33 Nita [facility] Body height 2021-10-05 19:18:00 167.6 cm [facility] Body weight 2021-10-05 19:18:00 86.637 kg [facility] BMI 2021-10-05 19:18:00 30.83 kg/m2 [facility] Oxygen saturation in 2021-10-05 19:18:00 99 /min [facility] Arterial blood by [facility] Pulse oximetry Branch Heart rate 2022-06-23 15:28:08 91 /min [facility] Respiratory rate 2022-06-23 15:28:08 18 /min [facility] Oxygen saturation in 2022-06-23 15:28:08 100 /min [facility] Arterial blood by Medical nter Pulse oximetry Body temperature 2022-06-23 15:28:04 36.89 Nita [facility] Systolic blood 2022-06-23 15:27:00 144 mm[Hg] [facility] Diastolic blood 2022-06-23 15:27:00 79 mm[Hg] [facility] Body height 2022-06-21 11:16:00 167.6 cm [place] [...] Temperature 2020-02-15 05:04:52 36.6\\S\\97.9 Weight 2020-02-15 05:04:52 07896\\S\\2627.91 Weight Measurement 2020-02-15 05:04:52 Built in Bedscale [...] Temperature 2020-02-10 08:28:02 36.6\\S\\97.9 Weight 2020-02-10 08:28:02 02662\\S\\2627.91 Weight Measurement 2020-02-10 08:28:02 Built in Bedscale [...] Temperature 2020-02-06 14:55:36 36.6\\S\\97.9 Weight 2020-02-06 14:55:36 51183\\S\\2627.91 Weight Measurement 2020-02-06 14:55:36 Built in Bedscale [...] Temperature 2020-02-06 12:25:52 36.7\\S\\98.1 Weight 2020-02-06 12:25:52 01562\\S\\2627.91 Weight Measurement 2020-02-06 12:25:52 Built in Bedscale [...] Temperature 2020-02-04 14:40:56 36.3\\S\\97.3 Weight 2020-02-04 14:40:56 08133\\S\\2627.91 Weight Measurement 2020-02-04 14:40:56 Built in Bedscale [...] Temperature 2020-02-04 12:53:01 36.3\\S\\97.3 Weight 2020-02-04 12:53:01 12695\\S\\2627.91 Weight Measurement 2020-02-04 12:53:01 Built in Bedscale [...] Temperature 2020-02-04 10:07:56 36.7\\S\\98.1 Weight 2020-02-04 10:07:56 16939\\S\\2627.91 Weight Measurement 2020-02-04 10:07:56 Built in Bedscale [...] Temperature 2020-02-04 06:31:28 36.7\\S\\98.1 Weight 2020-02-04 06:31:28 61049\\S\\2627.91 Weight Measurement 2020-02-04 06:31:28 Built in Bedscale [...] Temperature 2020-02-03 15:40:21 37.1\\S\\98.8 Weight 2020-02-03 15:40:21 74775\\S\\2627.91 Weight Measurement 2020-02-03 15:40:21 Built in Bedscale [...] Temperature 2020-02-03 13:59:33 37.1\\S\\98.8 Weight 2020-02-03 13:59:33 38159\\S\\2627.91 Weight Measurement 2020-02-03 13:59:33 Built in Bedscale [...] Temperature 2020-02-03 13:57:29 37.1\\S\\98.8 Weight 2020-02-03 13:57:29 77871\\S\\2627.91 Weight Measurement 2020-02-03 13:57:29 Built in [place] [employer] WEIGHT 2020-02-03 05:44:00 74.5 kg HEIGHT 2020-02-03 05:00:00 167.64 cm Respitory Rate 2014-07-22 20:45:00 [facility] [place] Heart Rate 2014-07-22 20:45:00 [facility] Systolic (mm Hg) 2014-07-22 20:45:00 Jack [facility] [place] Diastolic (mm Hg) 2014-07-22 20:45:00 [facility] Height 2014-07-22 17:53:00 167.64 cm [facility] Weight 2014-07-22 17:53:00 [facility] BMI Calculated 2014-07-22 17:53:00 [facility] [place] Respitory Rate 2014-07-22 17:53:00 [facility] [place] Temperature Oral (F) 2014-07-22 17:53:00 97.9 F [facility] Heart Rate 2014-07-22 17:53:00 [facility] Systolic (mm Hg) 2014-07-22 17:53:00 Jack rial [place] Diastolic (mm Hg) 2014-07-22 17:53:00 [facility] Procedures Procedure Date / Time Performing Clinician Source Performed ASSIGNMENT OF BENEFITS 2022-07-23 17:30:47 Doctor Unassigned, Un [facility] CONSENT/REFUSAL FOR 2022-07-23 16:45:23 Doctor Unasari [facility] DIAGNOSIS AND TREATMENT [facility] [place] COMP. METABOLIC PANEL 2022-07-11 10:41:00 Ángel Murray [facility] ([id number]) Medical Branch CBC WITH DIFF 2022-07-11 10:41:[address] [facility] POCT GLUCOSE (AUTOMATED) 2022-07-11 09:26:00 [facility] FOR 2022-07-11 04:57:15 Doctor Tracyagnes [facility] DIAGNOSIS AND TRE[facility]MENT [facility] CONSENT/REFUSAL FOR 2022-07-08 18:20:06 Doctor Sergo [facility] DIAGNOSIS AND TREATMENT [facility] URINALYSIS 2022-07-05 13:22:00 Hilda Miller [facility] XR TIBIA FIBULA 2 VW 2022-07-05 13:16:57 Hilda Miller [facility] Branch COMP. METABOLIC PANEL 2022-07-05 12:59:00 Hilda Miller [facility] ([id number]) [facility] US LOWER EXTREMITY VEIN 2022-07-05 12:47:00 Hilda Miller [facility] WITH COMPRESSION RIGHT Medical [facility] ranch (ONLY FOR RULE OUT DVT) TROPONIN I 2022-07-05 11:49[facility] 2022-07-05 11:49:00 Hilda Miller [facility] N-TERMINAL PRO-BNP 2022-07-05 11:49:[address] [facility] US RENAL COMPLETE 2022-06-23 16:47:00 Laureen Moore [facility] CBC W/PLT COUNT & AUTO 2022-06-23 05:27:00 Kendra [facility] DIFFERENTIAL [place] CBC W/PLT COUNT & AUTO 2022-06-23 05:27:00 [facility] [place] US ABDOMEN LIMITED 2022-06-22 16:17:00 Fabienne[facility] BASIC METABOLIC PANEL 2022-06-22 03:48:00 [facility]UM 2022-06-22 03:48:00 [facility] HEPATIC FUNCTION PANEL 2022-06-22 03:48:00 [facility] W/PLT COUNT & AUTO 2022-06-22 03:48:00 [facility]ENTIAL Center PROTEIN ELECTROPHORESIS, 2022-06-22 03:48:00 Fabienne [facility] IRON, TIBC, % SAT. 2022-06-22 03:48:00 [facility] (WITHOUT FERRITIN) [place] VITAMIN B12 2022-06-22 03:48:00 Fabienne [facility] FERRITIN 2022-06-22 03:48:00 Fabienne [facility] HEPARIN ANTIBODY 2022-06-22 03:48:00 Fabienne [facility] LACTATE DEHYDROGENASE 2022-06-22 03:48:00 [facility] ([facility]) [facility] HAPTOGLOBIN 2022-06-22 03:48:00 [facility] RETICULOCYTE COUNT 2022-06-22 03:48:00 [facility] Kristy [place] SERUM IMMUNOTYPING 2022-06-22 03:48:00 [facility] SEROTONIN RELEASE ASSAY 2022-06-22 03:48:00 Fabienne [facility] CBC W/PLT COUNT & AUTO 2022-06-22 03:48:00 [facility] DIFFERENTIAL [place] URINE PROTEIN 2022-06-21 16:38:00 Shelbie AbrahamKianna [facility] ELECTROPHORESIS, [facility] SARS-COV2/RT-PCR ([facility] & 2022-06-21 11:14:00 Olga Abraham [facility] REF LABS) Center COMPREHENSIVE METABOLIC 2022-06-21 11:12:00 Olga Abraham [facility] PANEL Center PROTHROMBIN TIME/INR 2022-06-21 11:12:00 Olga Abraham [facility] CBC W/PLT COUNT & AUTO 2022-06-21 11:12:00 Olga Abraham [facility] DIFFERENTIAL Center CBC W/PLT COUNT & AUTO 2022-06-21 11:12:00 Olga Abraham [facility] DIFFERENTIAL Center INSURANCE CORRESPONDENCE 2022-06-21 05:01:00 Doctor Unassigned, [facility] PHOSPHORUS 2022-06-07 09:16:00 [facility] MAGNESIUM 2022-06-07 09:16:00 [facility] BASIC METABOLIC PANEL 2022-06-07 09:16:00 Haley Jorge L [facility] (NA, K, CL, CO2, GLUCOSE, Faustino Med[facility] Branch BUN, CREATININE, CA) PHOSPHORUS 2022-06-05 11:13:00 [facility] [place] MAGNESIUM 2022-06-05 11:13:00 [facility] [place] BASIC METABOLIC PANEL 2022-06-05 11:13:00 [facility] (NA, K, CL, CO2, GLUCOSE, Rod, Juanpablo Medica l Branch BUN, CREATININE, CA) [place] CBC WITH DIFF 2022-06-05 11:13:00 [facility] [place] PHOSPHORUS 2022-06-05 11:13:00 [facility] [place] MAGNESIUM 2022-06-05 11:13:00 [facility] [place] BASIC METABOLIC PANEL 2022-06-05 11:13:00 Prajapati [facility] (NA, K, CL, CO2, GLUCOSE, Rod, Juanpablo Medica [facility] Branch BUN, CREATININE, CA) [place] CBC WITH DIFF 2022-06-05 11:13:00 [facility] [place] CT THORAX W CONTRAST 2022-06-05 01:36:13 [facility] Shimon [facility] CT THORAX W CONTRAST 2022-06-05 01:36:13 [facility] Shimon [facility] ACTIVATED PARTIAL 2022-06-04 18:00:00 Dannie [facility] ACTIVATED PARTIAL 2022-06-04 18:00:00 Dannie [facility] ACTIVATED PARTIAL 2022-06-04 14:21:00 [facility] ACTIVATED PARTIAL 2022-06-04 14:21:00 [facility] XR KUB 2022-06-04 09:32:00 Dannie [facility] XR KUB 2022-06-04 09:32:00 Dannie [facility] XR KUB 2022-06-04 06:45:00 Dannie [facility] XR KUB 2022-06-04 06:45:00 Dannie [facility] HIT - AB 2022-06-04 06:14:00 Dannie [facility] EXTRA SST HOLD FOR NHUP 2022-06-04 06:14:00 Dannie [facility] HIT - AB 2022-06-04 06:14:00 Dannie [facility] EXTRA SST HOLD FOR ARUP 2022-06-04 06:14:00 Armando Pandey [facility] XR CHEST 1 VW 2022-06-04 05:23:00 Dannie [facility] XR CHEST 1 VW 2022-06-04 05:23:00 Dannie [facility] TROPONIN I 2022-06-04 04:51:00 [facility] 2022-06-04 04:51:00 [facility]ando [facility] ([id number]) (ALB,T.PRO,BILI Medical Branch T,BU/BC,ALT,AST,ALK PHOS) BASIC METABOLIC PANEL 2022-06-04 04:51:00 Armando Pandey [facility] (NA, K, CL, CO2, GLUCOSE, Medica l Branch BUN, CREATININE, CA) CBC WITH DIFF 2022-06-04 04:51:00 Dannie Armando [facility] ACTIVATED PARTIAL 2022-06-04 04:51:00 [facility] TROPONIN I 2022-06-04 04:51:00 Armando Pandey [facility] HEPATIC FUNCTION PANEL 2022-06-04 04:51:00 Armando Pandey [facility] ([id number]) (ALB,T.PRO,BILI Medical Branch T,BU/BC,ALT,AST,ALK PHOS) BASIC METABOLIC PANEL 2022-06-04 04:51:00 Armando Pandey [facility] (NA, K, CL, CO2, GLUCOSE, Medica l Branch BUN, CREATININE, CA) CBC WITH DIFF 2022-06-04 04:51:00 Armando Pandey [facility] ACTIVATED PARTIAL 2022-06-04 04:51:00 Andreea [facility] HB ECG ROUTINE & RHYTHM 2022-06-04 04:43:15 Armando Pandey [facility] HB ECG ROUTINE & RHYTHM 2022-06-04 04:43:15 Dannie Armando [facility] ACTIVATED PARTIAL 2022-06-03 20:52:00 [facility] ACTIVATED PARTIAL 2022-06-03 20:52:00 [facility] FL TIME OR 2022-06-03 17:21:00 Alo Brown [facility] (NON-REPORTABLE) Rod, [facility] Jose Antonio FL TIME OR 2022-06-03 17:21:00 Alo Brown [facility] (NON-REPORTABLE) Juanpablo Velasco [facility] [place] ABG+COOX+NA+K+GLU+CA2+ 2022-06-03 16:52:00 Allan Lynch [facility] ABG+COOX+NA+K+GLU+CA2+ 2022-06-03 16:52:00 Allan Lynch [facility] SURGICAL PATHOLOGY EXAM 2022-06-03 15:42:00 Lawrence Peterson [facility] ABG+COOX+NA+K+GLU+CA2+ 2022-06-03 15:36:00 Allan Lynch [facility] ABG+COOX+NA+K+GLU+CA2+ 2022-06-03 15:36:00 Allan Lynch [facility] HB ABO GROUPING 2022-06-03 13:05:[address] [facility] HB ABO GROUPING 2022-06-03 13:05:00 [facility] INFERIOR VENA CAVA FILTER 2022-06-03 12:00:00 [facility] 2022-06-03 12:00:[address] [facility] ANGIOPLASTY 2022-06-03 12:00:00 Lawrence Peterson [facility] VASCULAR STENTING 2022-06-03 12:00:00 Lawrence Peterson [facility] INFERIOR VENA CAVA FILTER 2022-06-03 12:00:00 Lawrence Peterson [facility] VENOUS THROMBECTOMY 2022-06-03 12:00:[address] [facility] ANGIOPLASTY 2022-06-03 12:00:00 Lawrence Peterson [facility] VASCULAR STENTING 2022-06-03 12:00:00 Lawrence Peterson [facility] PHOSPHORUS 2022-06-03 10:34:00 [facility]o [facility] [place] MAGNESIUM 2022-06-03 10:34:00 Prajapati [facility] [place] BASIC METABOLIC PANEL 2022-06-03 10:34:00 Prajapati [facility] (NA, K, CL, CO2, GLUCOSE, Rod, Juanpablo [facility]ica [facility] Branch BUN, CREATININE, CA) [place] CBC WITH DIFF 2022-06-03 10:34:00 [facility] [place] ACTIVATED PARTIAL 2022-06-03 10:34:00 Andree[facility] PHOSPHORUS 2022-06-03 10:34:00 Prajapati [facility] [place] MAGNESIUM 2022-06-03 10:34:00 [facility] [place] BASIC METABOLIC PANEL 2022-06-03 10:34:00 Prajapati [facility] (NA, K, CL, CO2, GLUCOSE, Rod, Juanpablo [facility] BUN, CREATININE, CA) [place] CBC WITH DIFF 2022-06-03 10:34:00 [facility] [place] ACTIVATED PARTIAL 2022-06-03 10:34:00 Andreea [facility] ACTIVATED PARTIAL 2022-06-02 22:26:00 [facility] ACTIVATED PARTIAL 2022-06-02 22:26:00 [facility] ACTIVATED PARTIAL 2022-06-02 15:46:00 Andreea [facility] ACTIVATED PARTIAL 2022-06-02 15:46:00 Andreea [facility] PHOSPHORUS 2022-06-02 10:27:00 Prajapati [facility] [place] MAGNESIUM 2022-06-02 10:27:00 Prajapati [facility] [place] BASIC METABOLIC PANEL 2022-06-02 10:27:00 Prajapati [facility] (NA, K, CL, CO2, GLUCOSE, Rod, Juanpablo [facility] BUN, CREATININE, CA) [place] CBC WITH DIFF 2022-06-02 10:27:00 [facility] [place] PHOSPHORUS 2022-06-02 10:27:00 Prajapati [facility] [place] MAGNESIUM 2022-06-02 10:27:00 [facility]ati [facility] Jose Antonio BASIC METABOLIC PANEL 2022-06-02 10:27:00 [facility] (NA, K, CL, CO2, GLUCOSE, Rod, [facility] BUN, CREATININE, CA) Jose Antonio CBC WITH DIFF 2022-06-02 10:27:00 [facility] Jose Antonio PHOSPHORUS 2022-06-01 10:05:00 [facility] Jose Antonio MAGNESIUM 2022-06-01 10:05:00 [facility] BASIC METABOLIC PANEL 2022-06-01 10:05:00 [facility] (NA, K, CL, CO2, GLUCOSE, Rod, [facility] BUN, CREATININE, CA) Jose Antonio CBC WITH DIFF 2022-06-01 10:05:00 [facility] PHOS[facility]US 2022-06-01 10:05:00 [facility] Jose Antonio MAGNESIUM 2022-06-01 10:05:00 [facility]ati [facility] Jose Antonio BASIC METABOLIC PANEL 2022-06-01 10:05:00 [facility] ([facility], K, CL, CO2, GLUCOSE, Rod, [facility] BUN, CREATININE, CA) Jose Antonio CBC WITH DIFF 2022-06-01 10:05:00 [facility] PHOSPHORUS 2022-05-31 11:01:00 [facility]ati [facility] Jose Antonio MAGNESIUM 2022-05-31 11:01:00 Praj[facility]ati [facility] Jose Antonio BASIC METABOLIC PANEL 2022-05-31 11:01:00 [facility] (NA, K, CL, CO2, GLUCOSE, Rod, [facility] BUN, CREATININE, CA) Jose Antonio CBC WITH DIFF 2022-05-31 11:01:00 [facility] Antonio PROTHROMBIN TIME / INR 2022-05-31 11:01:00 Juanpablo Salmon [facility] ACTIVATED PARTIAL 2022-05-31 11:01:00 Juanpablo Salmon [facility] THRLAS NGA [facility] FIBRINOGEN 2022-05-31 11:01:00 Ryley Polo [facility] Medical [place] PHOSPHORUS 2022-05-31 11:01:00 [facility] Jose Antonio MAGNESIUM 2022-05-31 11:01:00 [facility] BASIC METABOLIC PANEL 2022-05-31 11:01:00 [facility] (NA, K, CL, CO2, GLUCOSE, Rod, [facility] BUN, CREATININE, CA) Jose Antonio CBC WITH DIFF 2022-05-31 11:01:00 [facility] PROT[facility]OMBIN TIME / INR 2022-05-31 11:01:00 Juanpablo Salmon [facility] ACTIVATED PARTIAL 2022-05-31 11:01:00 Juanpablo Salmon [facility] FIBRINOGEN 2022-05-31 11:01:00 [facility] 2022-05-31 11:01:00 [facility] Jose Antonio MAGNESIUM 2022-05-31 11:01:00 [facility] Jose Antonio BASIC METABOLIC PANEL 2022-05-31 11:01:00 [facility] (NA, K, CL, CO2, GLUCOSE, Rod, [facility] BUN, CREATININE, CA) Jose Antonio CBC WITH DIFF 2022-05-31 11:01:00 [facility] Jose Antonio PROTHROMBIN TIME / INR 2022-05-31 11:01:00 Juanpablo Salmon [facility] ACTIVATED PARTIAL 2022-05-31 11:01:00 Juanpablo Salmon [facility] FIBRINOGEN 2022-05-31 11:01:00 [facility] FL TIME OR 2022-05-31 04:56:00 Andreea [facility] (NON-REPORTABLE) [facility] FL TIME OR 2022-05-31 04:56:00 [facility] (NON-REPORTABLE) [facility] FL TIME OR 2022-05-31 04:56:00 [facility] (NON-REPORTABLE) [facility] FIBRINOGEN 2022-05-31 01:26:00 [facility] FIBRINOGEN 2022-05-31 01:26:00 [facility] FIBRINOGEN 2022-05-31 01:26:00 [facility] VENOGRAM 2022-05-31 01:17:00 Cris, [facility] VENOGRAM 2022-05-31 01:17:00 [facility] 2022-05-30 21:47:00 Tsanagovitaliy [facility] FIBRINOGEN 2022-05-30 21:47:00 Tsukagovitaliy [facility] FIBRINOGEN 2022-05-30 21:47:00 Tsanagovitaliy [facility] FIBRINOGEN 2022-05-30 18:14:00 Tsukagoshi, [facility] FIBRINOGEN 2022-05-30 18:14:00 Tsukagoshi [facility] FIBRINOGEN 2022-05-30 18:14:00 Tsukagoshi [facility] FIBRINOGEN 2022-05-30 18:14:00 Tsukagovitaliy [facility] FIBRINOGEN 2022-05-30 15:21:00 Tsukagovitaliy [facility] FIBRINOGEN 2022-05-30 15:21:00 Tsukagoshi, [facility] FIBRINOGEN 2022-05-30 15:21:00 Tsukagoshi, [facility] FIBRINOGEN 2022-05-30 15:21:00 Tsukagovitaliy [facility] FIBRINOGEN 2022-05-30 13:12:00 Tsukagovitaliy [facility] FIBRINOGEN 2022-05-30 13:12:00 Tsukagovitaliy [facility] FIBRINOGEN 2022-05-30 13:12:00 Tsukagoshi, [facility] FIBRINOGEN 2022-05-30 13:12:00 Tsukagoshi [facility] FIBRINOGEN 2022-05-30 11:13:00 Tsanagovitaliy [facility] FIBRINOGEN 2022-05-30 11:13:00 Tsanagovitaliy [facility] FIBRINOGEN 2022-05-30 11:13:00 Tsanagovitaliy [facility] FIBRINOGEN 2022-05-30 11:13:00 Tsanagovitaliy [facility] PHOSPHORUS 2022-05-30 09:27:00 [facility] MAGNESIUM 2022-05-30 09:27:00 [facility] BASIC METABOLIC PANEL 2022-05-30 09:27:00 [facility] (NA, K, CL, CO2, GLUCOSE, Medica l Branch BUN, CREATININE, CA) CBC WITH DIFF 2022-05-30 09:27:00 [facility] ACTIVATED PARTIAL 2022-05-30 09:27:00 [facility] FIBRINOGEN 2022-05-30 09:27:00 [facility] PHOSPHORUS 2022-05-30 09:27:00 [facility] MAGNESIUM 2022-05-30 09:27:00 [facility] BASIC METABOLIC PANEL 2022-05-30 09:27:00 [facility] (NA, K, CL, CO2, GLUCOSE, Medica l Branch BUN, CREATININE, CA) CBC WITH DIFF 2022-05-30 09:27:00 [facility] ACTIVATED PARTIAL 2022-05-30 09:27:00 [facility] FIBRINOGEN 2022-05-30 09:27:00 Christ [facility] PHOSPHORUS 2022-05-30 09:27:00 [facility] MAGNESIUM 2022-05-30 09:27:00 [facility] BASIC METABOLIC PANEL 2022-05-30 09:27:00 [facility] (NA, K, CL, CO2, GLUCOSE, Medica l Branch BUN, CREATININE, CA) CBC WITH DIFF 2022-05-30 09:27:00 [facility] ACTIVATED PARTIAL 2022-05-30 09:27:00 [facility] FIBRINOGEN 2022-05-30 09:27:00 [facility] PHOSPHORUS 2022-05-30 09:27:00 [facility] MAGNESIUM 2022-05-30 09:27:00 [facility] BASIC METABOLIC PANEL 2022-05-30 09:27:00 Ryley Polo [facility] (NA, K, CL, CO2, GLUCOSE, Medica l Branch BUN, CREATININE, CA) CBC WITH DIFF 2022-05-30 09:27:00 [facility] ACTIVATED PARTIAL 2022-05-30 09:27:00 [facility] FIBRINOGEN 2022-05-30 09:27:00 [facility] FIBRINOGEN 2022-05-30 06:58:00 Christ [facility] FIBRINOGEN 2022-05-30 06:58:00 [facility] FIBRINOGEN 2022-05-30 06:58:00 [facility] FIBRINOGEN 2022-05-30 06:58:00 Chirst [facility] ACTIVATED PARTIAL 2022-05-30 06:13:00 [facility] ACTIVATED PARTIAL 2022-05-30 06:13:00 [facility] ACTIVATED PARTIAL 2022-05-30 06:13:00 [facility] ACTIVATED PARTIAL 2022-05-30 06:13:00 [facility] FIBRINOGEN 2022-05-30 04:43:00 Cris [facility] FIBRINOGEN 2022-05-30 04:43:00 Cris [facility] FIBRINOGEN 2022-05-30 04:43:00 Cris [facility] FIBRINOGEN 2022-05-30 04:43:00 Cris [facility] FIBRINOGEN 2022-05-29 23:24:00 Nallelysheila [facility] FIBRINOGEN 2022-05-29 23:24:00 Tsukamario [facility] FIBRINOGEN 2022-05-29 23:24:00 Tssheila [facility] FIBRINOGEN 2022-05-29 23:24:00 Tssheila [facility] FIBRINOGEN 2022-05-29 21:10:00 Cris [facility] FIBRINOGEN 2022-05-29 21:10:00 Cris [facility] FIBRINOGEN 2022-05-29 21:10:00 Cris [facility] FIBRINOGEN 2022-05-29 21:10:00 Cris [facility] BASIC METABOLIC PANEL 2022-05-29 14:55:00 Armando Pandey [facility] (NA, K, CL, CO2, GLUCOSE, Medica l Branch BUN, CREATININE, CA) CBC WITH DIFF 2022-05-29 14:55:00 Dannie [facility] FIBRINOGEN 2022-05-29 14:55:00 Cris [facility] BASIC METABOLIC PANEL 2022-05-29 14:55:00 Armando Pandey [facility] (NA, K, CL, CO2, GLUCOSE, Medica l Branch BUN, CREATININE, CA) CBC WITH DIFF 2022-05-29 14:55:00 Dannie [facility] FIBRINOGEN 2022-05-29 14:55:00 Cris [facility] BASIC METABOLIC PANEL 2022-05-29 14:55:00 Dannie Armando [facility] (NA, K, CL, CO2, GLUCOSE, Medica l Branch BUN, CREATININE, CA) CBC WITH DIFF 2022-05-29 14:55:00 Dannie [facility] FIBRINOGEN 2022-05-29 14:55:00 Cris [facility] BASIC METABOLIC PANEL 2022-05-29 14:55:00 Armando Pandey [facility] (NA, K, CL, CO2, GLUCOSE, Medica l Branch BUN, CREATININE, CA) CBC WITH DIFF 2022-05-29 14:55:00 Armando Pandey [facility] FIBRINOGEN 2022-05-29 14:55:00 Cris [facility] FL TIME OR 2022-05-29 14:03:[address] [facility] (NON-REPORTABLE) [facility] [place] TIME OR 2022-05-29 14:03:[address] [facility] (NON-REPORTABLE) [facility] FL TIME OR 2022-05-29 14:03:[address] [facility] (NON-REPORTABLE) [facility] FL TIME OR 2022-05-29 14:03:[address] [facility] (NON-REPORTABLE) [facility] VENOUS THROMBOLYSIS 2022-05-29 12:05:00 Cris [facility] VENOUS THROMBOLYSIS 2022-05-29 12:05:[address] [facility] MAGNESIUM 2022-05-29 11:11:00 Reyna [facility] BASIC METABOLIC PANEL 2022-05-29 11:11:00 Amber Orellana [facility] (NA, K, CL, CO2, GLUCOSE, Medica l Branch BUN, CREATININE, CA) CBC WITHOUT DIFF 2022-05-29 11:11:00 Reyna [facility] ACTIVATED PARTIAL 2022-05-29 11:11:00 [facility] THRMPLAS NGA [facility] MAGNESIUM 2022-05-29 11:11:00 Reyna [facility] BASIC METABOLIC PANEL 2022-05-29 11:11:00 Amber Orellana [facility] (NA, K, CL, CO2, GLUCOSE, Medica l Branch BUN, CREATININE, CA) CBC WITHOUT DIFF 2022-05-29 11:11:00 [facility] 2022-05-29 11:11:00 [facility] 2022-05-29 11:11:00 Reyna [facility] BASIC METABOLIC PANEL 2022-05-29 11:11:00 [facility] ([facility], K, CL, CO2, GLUCOSE, Medica l Branch BUN, CREATININE, CA) CBC WITHOUT DIFF 2022-05-29 11:11:00 [facility] 2022-05-29 11:11:00 [facility] 2022-05-29 11:11:00 Reyna [facility] BASIC METABOLIC PANEL 2022-05-29 11:11:00 [facility] (NA, K, CL, CO2, GLUCOSE, Medica l Branch BUN, CREATININE, CA) CBC WITHOUT DIFF 2022-05-29 11:11:00 [facility] 2022-05-29 11:11:00 [facility]FIR[facility] (LAB 2022-05-28 23:34:00 Lance Neal [facility] ONLY) Medical Branch ABORH CONFIRMATION (LAB 2022-05-28 23:34:00 Val Lance [facility] ONLY) Medical Branch ABORH CONFIRMATION (LAB 2022-05-28 23:34:00 Val Lance [facility] ONLY) Medical Branch ABORH CONFIRMATION (LAB 2022-05-28 23:34:[address] [facility] ONLY) Medical Branch HB ABO GROUPING 2022-05-28 23:00:00 [facility] HB ABO GROUPING 2022-05-28 23:00:00 [facility] HB ABO GROUPING 2022-05-28 23:00:00 Alejandroibzada, [facility] HB ABO GROUPING 2022-05-28 23:00:00 [facility] 2022-05-28 22:59:00 Reyna [facility] ACTIVATED PARTIAL 2022-05-28 22:59:00 [facility] 2022-05-28 22:59:00 [facility] 2022-05-28 22:59:00 [facility] PROT[facility] / INR 2022-05-28 17:23:00 Amber [facility] ACTIVATED PARTIAL 2022-05-28 17:23:00 Reyna [facility] PROTHROMBIN TIME / INR 2022-05-28 17:23:00 Amber Orellana [facility] ACTIVATED PARTIAL 2022-05-28 17:23:00 [facility] PROT[facility] / INR 2022-05-28 17:23:00 Amber Orellana [facility] ACTIVATED PARTIAL 2022-05-28 17:23:00 Reyna [facility] PROTHROMBIN TIME / INR 2022-05-28 17:23:00 Amber [facility]rellana [facility] ACTIVATED PARTIAL 2022-05-28 17:23:00 [facility] BASIC METABOLIC PANEL 2022-05-28 09:09:00 Chrystal Friedman [facility] (NA, K, CL, CO2, GLUCOSE, Medica l Branch BUN, CREATININE, CA) CBC WITH DIFF 2022-05-28 09:09:00 Chrystal Friedman [facility] FACTOR 5 LEIDEN 2022-05-28 09:09:00 Winifred, [facility] FACTOR 2 [id number] MUTATION 2022-05-28 09:09:00 Liseth Vitale [facility] F5 LEIDEN AND F2 [id number] 2022-05-28 09:09:00 Liseth Vitale [facility] BASIC METABOLIC PANEL 2022-05-28 09:09:00 [facility] (NA, K, CL, CO2, GLUCOSE, Medica l Branch BUN, CREATININE, CA) CBC WITH DIFF 2022-05-28 09:09:00 [facility] 2022-05-28 09:09:00 [facility] [id number] MUTATION 2022-05-28 09:09:00 Liseth Vitale [facility] F5 LEIDEN AND F2 [id number] 2022-05-28 09:09:00 Liseth Vitale Uni [facility] BASIC METABOLIC PANEL 2022-05-28 09:09:00 [facility] (NA, K, CL, CO2, GLUCOSE, Medica l Branch BUN, CREATININE, CA) CBC WITH DIFF 2022-05-28 09:09:00 Chrystal Friedman [facility] FACTOR 5 LEIDEN 2022-05-28 09:09:00 [facility] FA[facility] 2 [id number] MUTATION 2022-05-28 09:09:00 Liseth Vitale [facility] F5 LEIDEN AND F2 [id number] 2022-05-28 09:09:00 Liseth Vitale [facility] BASIC METABOLIC PANEL 2022-05-28 09:09:00 [facility] (NA, K, CL, CO2, GLUCOSE, Medica l Branch BUN, CREATININE, CA) CBC WITH DIFF 2022-05-28 09:09:00 [facility] FA[facility] 5 LEIDEN 2022-05-28 09:09:00 Winifred [facility] FACTOR 2 [id number] MUTATION 2022-05-28 09:09:00 Liseth [facility] F5 LEIDEN AND F2 [id number] 2022-05-28 09:09:00 [facility]ORACIC E[facility] (TTE) 2022-05-27 15:47:00 [facility]/ [facility]AST [facility] TRANSTHORACIC ECHO (TTE) 2022-05-27 15:47:00 [facility] W/ CONTRAST [facility] TRANSTHORACIC ECHO (TTE) 2022-05-27 15:47:00 Chrystal [facility] COMPLETE W/ CONTRAST [facility] TRANSTHORACIC ECHO (TTE) 2022-05-27 15:47:00 [facility] ABDOMEN PELVIS W 2022-05-27 11:28:06 [facility] Medical [place] CT ABDOMEN PELVIS W 2022-05-27 11:28:06 Edionwe, [facility] CONTRAST Medical Branch CT ABDOMEN PELVIS W 2022-05-27 11:28:06 Edionwe, [facility] CONTRAST Medical [place] CT ABDOMEN PELVIS W 2022-05-27 11:28:06 Edion, [facility] BASIC METABOLIC PANEL 2022-05-27 09:45:00 [facility] ([facility], K, CL, CO2, GLUCOSE, Medica l Branch BUN, CREATININE, CA) CBC WITH DIFF 2022-05-27 09:45:00 [facility] [place] GLYCOSYLATED HEMOGLOBIN 2022-05-27 09:45:00 Liseth Vitale [facility] (A1C) Medical [place] BASIC METABOLIC PANEL 2022-05-27 09:45:00 [facility] (NA, K, CL, CO2, GLUCOSE, Medica l Branch BUN, CREATININE, CA) CBC WITH DIFF 2022-05-27 09:45:00 [facility] [place] GLYCOSYLATED HEMOGLOBIN 2022-05-27 09:45:00 [facility]ifred[facility] BASIC METABOLIC PANEL 2022-05-27 09:45:00 [facility] (NA, K, CL, CO2, GLUCOSE, Medica l Branch BUN, CREATININE, CA) CBC WITH DIFF 2022-05-27 09:45:00 [facility] [place] GLYCOSYLATED HEMOGLOBIN 2022-05-27 09:45:00 Winifred [facility] (A1C) Medical Branch BASIC METABOLIC PANEL 2022-05-27 09:45:00 [facility] (NA, K, CL, CO2, GLUCOSE, Medica l Branch BUN, CREATININE, CA) CBC WITH DIFF 2022-05-27 09:45:00 [facility] GLYCOSYLATED HEMOGLOBIN 2022-05-27 09:45:00 Winifred [facility] ([facility]) Medical Branch DUPLEX VENOUS LEGS 2022-05-27 01:08:52 Meche Zapata [facility] BILATERAL - BY VASCULAR Medical Branch LAB DUPLEX VENOUS LEGS 2022-05-27 01:08:52 Meche Zapata [facility] BILATERAL - BY VASCULAR [facility] Branch LAB DUPLEX VENOUS LEGS 2022-05-27 01:08:52 Meche Zapata [facility] BILATERAL - BY VASCULAR Medical Branch LAB DUPLEX VENOUS LEGS 2022-05-27 01:08:52 Meche Zapata [facility] BILATERAL - BY VASCULAR [facility] LAB URINE DRUG (IMMUNOASSAY) 2022-05-26 22:13:00 Ondina Yusuf [facility] DRUG [facility] SCREEN URINALYSIS 2022-05-26 22:13:00 Meche Zapata [facility] URINE DRUG (IMMUNOASSAY) 2022-05-26 22:13:00 Ondina Yusuf [facility] DRUG [facility] SCREEN URINALYSIS 2022-05-26 22:13:00 Meche Zapata [facility] URINE DRUG (IMMUNOASSAY) 2022-05-26 22:13:00 Ondina Yusuf [facility] DRUG [facility] SCREEN URINALYSIS 2022-05-26 22:13:00 Meche Zapata [facility] URINE DRUG (IMMUNOASSAY) 2022-05-26 22:13:00 Ondina Yusuf [facility] DRUG [facility] SCREEN URINALYSIS 2022-05-26 22:13:00 Meche Zapata [facility] HB ECG ROUTINE & RHYTHM 2022-05-26 21:43:55 Meche Zapata [facility] HB ECG ROUTINE & RHYTHM 2022-05-26 21:43:55 Meche Zapata [facility] HB ECG ROUTINE & RHYTHM 2022-05-26 21:43:55 Meche Zapata [facility] HB ECG ROUTINE & RHYTHM 2022-05-26 21:43:55 Meche Zapata [facility] XR CHEST 1 2022-05-26 21:37:08 Meche Zapata [facility] XR CHEST 1 2022-05-26 21:37:08 Meche Zapata [facility] XR CHEST 1 2022-05-26 21:37:08 Meche Zapata [facility] XR CHEST 1 2022-05-26 21:37:08 Meche Zapata [facility] MAGNESIUM 2022-05-26 21:20:00 Meche Zapata [facility] TROPONIN I 2022-05-26 21:20:00 Meche Zapata [facility] COMP. METABOLIC PANEL 2022-05-26 21:20:00 Meche Zapata [facility] ([id number]) [facility] CBC WITH DIFF 2022-05-26 21:20:00 Meche Zapata [facility] N-TERMINAL PRO-BNP 2022-05-26 21:20:00 Meche Zapata [facility] MAGNESIUM 2022-05-26 21:20:00 Meche Zapata [facility] TROPONIN I 2022-05-26 21:20:00 Meche Zapata [facility] COMP. METABOLIC PANEL 2022-05-26 21:20:00 Meche Zapata [facility] ([id number]) [facility] CBC WITH DIFF 2022-05-26 21:20:00 Meche [facility]apata [facility] N-TERMINAL PRO-BNP 2022-05-26 21:20:00 Meche Zapata [facility] MAGNESIUM 2022-05-26 21:20:00 Jodi, K [facility] TROPONIN I 2022-05-26 21:20:00 Meche Zapata [facility] COMP. METABOLIC PANEL 2022-05-26 21:20:00 Meche Zapata [facility] ([id number]) [facility] Branch CBC WITH DIFF 2022-05-26 21:20:00 Meche Zapata [facility] N-TERMINAL PRO-BNP 2022-05-26 21:20:00 Meche Zapata [facility] MAGNESIUM 2022-05-26 21:20:00 Meche Zapata [facility] TROPONIN I 2022-05-26 21:20:00 Meche Zapata [facility] COMP. METABOLIC PANEL 2022-05-26 21:20:00 Meche Zapata [facility] ([id number]) [facility] CBC WITH DIFF 2022-05-26 21:20:00 Meche Zapata [facility] N-TERMINAL PRO-BNP 2022-05-26 21:20:00 Meche Zapata [facility] HOSPITAL ADMISSION 2022-05-26 05:01:00 Doctor Unassigned, [facility] HOSPITAL ADMISSION 2022-05-26 05:01:00 Doctor Unassigned, [facility] Name [facility] HOSPITAL ADMISSION 2022-05-26 05:01:00 Doctor Unassigned, [facility] Name [facility] XR LUMBAR SPINE 3 VW 2022-05-23 09:47:55 Herminio Corbin [facility] Medical Branch DISCLOSURE AND CONSENT, 2022-05-19 05:01:00 Doctor Unassigned, [facility] MEDICAL AND SURGICAL [facility] PROCEDURES PATIENT QUESTIONNAIRE 2022-05-17 05:01:00 Doctor Unassigned, [facility] INSURANCE CORRESPONDENCE 2022-05-16 05:01:00 Doctor Unassigned, [facility] INSURANCE CORRESPONDENCE 2022-05-04 05:01:00 Doctor Unassigned, [facility] DME/SUPPLY JUSTIFICATION 2022-04-22 06:01:00 Doctor Unassigned, [facility] PATIENT FINANCIAL 2022-04-13 15:27:54 Doctor Unasari, [facility] POLICY [facility] SLEEP STUDY DATA REPORT 2022-04-02 06:01:00 Doctor Sergo, [facility] XR HIPS 2 VW RIGHT 2022-03-24 14:56:12 Alphonse Manjarrez [facility] Medical Branch MR LUMBAR SPINE WO 2022-03-24 14:41:33 Delroy Farah [facility] CONTRAST Medical Branch INSURANCE CORRESPONDENCE 2022-02-15 06:01:00 Doctor Sergo, [facility] EXTERNAL PROVIDER RECORDS 2022-02-03 06:01:00 Doctor Sergo, [facility] REFERRAL- 2022-01-17 06:01:00 Doctor Sergo, [facility] REQUEST/RESPONSE [facility] ASSIGNMENT OF BENEFITS 2021-12-08 15:11:38 Doctor Sergo, [facility] SLEEP STUDY DATA REPORT 2021-11-04 05:01:00 Doctor Sergo, [facility] Plan of Care Planned Activity Planned Date Details Comments Source Future Scheduled 2022-10-[address] [facility] Test 00:00:00 (Season Ended) [code = [facility] INFLUENZA VACCINE (Season Ended)] Future Scheduled 2022-10-[address] [facility] 00:00:00 (Season Ended) [code = [facility] Center INFLUENZA VACCINE (Season Ended)] Future Scheduled 2022-07-19 [facility] 13:32:24 malignant neoplasm of colon (procedure) [code = 957097773] Future Scheduled 2022-07-19 [facility] 13:32:24 malignant neoplasm of colon (procedure) [code = 664009657] Future Scheduled 2022-07-19 [facility] 13:32:24 malignant neoplasm of colon (procedure) [code = 837940671] Future Scheduled 2022-07-19 COVID-19 VACCINE (#1) [facility] Test 13:32:24 [code = COVID-19 VACCINE (#1)] Future Scheduled 2022-07-19 Hepatitis C screening [facility] Test 13:32:24 (procedure) [code = 633405743] Future Scheduled 2022-07-19 [facility] Test 13:32:24 malignant neoplasm of colon (procedure) [code = 154077843] Future Scheduled 2022-07-19 [facility] Test 13:32:24 malignant neoplasm of colon (procedure) [code = 592788418] Future Scheduled 2022-07-19 SHINGLES [facility]ACCINES ([facility] 13:32:24 of 2) [code = SHINGLES VACCINES (1 of 2)] Future Scheduled 2022-07-19 [facility] 13:32:24 [code = INFLUENZA VACCINE] Future Scheduled 2022-07-19 [facility] 13:32:24 malignant neoplasm of colon (procedure) [code = 636935366] Future Scheduled 2022-07-19 [facility] Test 13:32:24 malignant neoplasm of colon (procedure) [code = 094073560] Future Scheduled 2022-07-19 [facility] 13:32:24 malignant neoplasm of colon (procedure) [code = 833905661] Future Scheduled 2022-07-19 COVID-19 VACCINE (#1) [facility] Test 13:32:24 [code = COVID-19 VACCINE (#1)] Future Scheduled 2022-07-19 Hepatitis C screening [facility] Test 13:32:24 (procedure) [code = 294136877] Future Scheduled 2022-07-19 [facility] 13:32:24 malignant neoplasm of colon (procedure) [code = 016799490] Future Scheduled 2022-07-19 [facility] Test 13:32:24 malignant neoplasm of colon (procedure) [code = 104120919] Future Scheduled 2022-07-19 SHINGLES VACCINES (1 [facility] 13:32:24 of 2) [code = SHINGLES VACCINES (1 of 2)] Future Scheduled 2022-07-19 [facility]ACCINE [facility] 13:32:24 [code = INFLUENZA VACCINE] Future Scheduled 2022-07-19 [facility] 13:32:24 malignant neoplasm of colon (procedure) [code = 348336205] Future Scheduled 2022-07-19 [facility] Test 13:32:24 malignant neoplasm of colon (procedure) [code = 458953017] Future Scheduled 2022-07-19 [facility] Test 13:32:24 malignant neoplasm of colon (procedure) [code = 780640331] Future Scheduled 2022-07-19 COVID-19 VACCINE (#1) [facility] Test 13:32:24 [code = COVID-19 VACCINE (#1)] Future Scheduled 2022-07-19 Hepatitis C screening [facility] Test 13:32:24 (procedure) [code = 351017259] Future Scheduled 2022-07-19 [facility] 13:32:24 malignant neoplasm of colon (procedure) [code = 573123396] Future Scheduled 2022-07-19 [facility] 13:32:24 malignant neoplasm of colon (procedure) [code = 382596317] Future Scheduled 2022-07-19 SHINGLES VACCINES (1 [facility] 13:32:24 of 2) [code = SHINGLES VACCINES (1 of 2)] Future Scheduled 2022-07-19 [facility]ZA [facility]ACCINE [facility] 13:32:24 [code = INFLUENZA VACCINE] Future Scheduled 2022-07-19 [facility] 13:32:24 malignant neoplasm of colon (procedure) [code = 605111216] Future Scheduled 2022-07-19 [facility] 13:32:24 malignant neoplasm of colon (procedure) [code = 354234773] Future Scheduled 2022-07-19 [facility] 13:32:24 malignant neoplasm of colon (procedure) [code = 156923323] Future Scheduled 2022-07-19 COVID-19 VACCINE (#1) [facility] 13:32:24 [code = COVID-19 VACCINE (#1)] Future Scheduled 2022-07-19 [facility] C screening [facility] 13:32:24 (procedure) [code = 841352458] Future Scheduled 2022-07-19 [facility] 13:32:24 malignant neoplasm of colon (procedure) [code = 703421783] Future Scheduled 2022-07-19 [facility] 13:32:24 malignant neoplasm of colon (procedure) [code = 713410330] Future Scheduled 2022-07-19 SHINGLES VACCINES (1 [facility] Test 13:32:24 of 2) [code = SHINGLES VACCINES (1 of 2)] Future Scheduled 2022-07-19 [facility]ZA VACCINE [facility] 13:32:24 [code = INFLUENZA VACCINE] Future Scheduled 2022-07-10 COVID-19 VACCINE (#1) [facility] Test 23:57:37 [code = COVID-19 VACCINE (#1)] Future Scheduled 2022-07-10 Hepatitis C screening [facility] Test 23:57:37 (procedure) [code = 272067654] Future Scheduled 2022-07-10 COLONOSCOPY SCREENING [facility] Test 23:57:37 [code = COLONOSCOPY SCREENING] Future Scheduled 2022-07-10 SHINGLES VACCINES (1 [facility] Test 23:57:37 of 2) [code = SHINGLES VACCINES (1 of 2)] Future Scheduled 2022-07-10 IN[facility]UENZA VACCINE [facility] 23:57:37 [code = INFLUENZA VACCINE] Future Scheduled 2022-07-10 COVID-19 VACCINE (#1) [facility] 23:57:37 [code = COVID-19 VACCINE (#1)] Future Scheduled 2022-07-10 Hepatitis C screening [facility] Test 23:57:37 (procedure) [code = 028217398] Future Scheduled 2022-07-10 COLONOSCOPY SCREENING [facility] Test 23:57:37 [code = COLONOSCOPY SCREENING] Future Scheduled 2022-07-10 SHINGLES VACCINES ([facility] 23:57:37 of 2) [code = SHINGLES VACCINES (1 of 2)] Future Scheduled 2022-07-10 [facility]UENZA VACCINE [facility] 23:57:37 [code = INFLUENZA VACCINE] Future Scheduled 2022-07-10 COVID-19 VACCINE (#1) [facility] Test 23:57:37 [code = COVID-19 VACCINE (#1)] Future Scheduled 2022-07-10 [facility] 23:57:37 (procedure) [code = 787015005] Future Scheduled 2022-07-10 [facility] 23:57:37 malignant neoplasm of colon (procedure) [code = 264850816] Future Scheduled 2022-07-10 SHINGLES VACCINES (1 [facility] Test 23:57:37 of 2) [code = SHINGLES VACCINES (1 of 2)] Future Scheduled 2022-07-10 [facility]ENZA VACCINE [facility] 23:57:37 [code = INFLUENZA VACCINE] Future Scheduled 2022-07-03 COVID-19 VACCINE (#1) [facility] Test 23:24:31 [code = COVID-19 VACCINE (#1)] Future Scheduled 2022-07-03 Hepatitis C screening [facility] Test 23:24:31 (procedure) [code = 078671405] Future Scheduled 2022-07-03 [facility] 23:24:31 [code = COLONOSCOPY SCREENING] Future Scheduled 2022-07-03 SHINGLES VACCINES (1 [facility] Test 23:24:31 of 2) [code = SHINGLES VACCINES (1 of 2)] Future Scheduled 2022-07-03 [facility]ENZA VACCINE [facility] 23:24:31 [code = INFLUENZA VACCINE] Future Scheduled 2022-05-18 COVID-19 VACCINE (#1) [facility] Test 20:48:55 [code = COVID-19 VACCINE (#1)] Future Scheduled 2022-05-18 Hepatitis C screening [facility] Test 20:48:55 (procedure) [code = 617966002] Future Scheduled 2022-05-18 COLONOSCOPY SCREENING [facility] Test 20:48:55 [code = COLONOSCOPY SCREENING] [...] [facility] 20:48:55 (procedure) [code = 017012336] Future Scheduled 2022-05-18 COLONOSCOPY SCREENING [facility] [...] Scheduled 2021-10-15 HEPATITIS B VACCINES [facility] 19:26:49 (1 of 3 - 3-dose series) [code = HEPATITIS B VACCINES (1 of 3 - 3-dose series)] Future Scheduled 2021-10-15 COVID-19 VACCINE (#1) [facility] 19:26:49 [code = COVID-19 VACCINE (#1)] Future Scheduled 2021-10-15 [facility] 19:26:49 (procedure) [code = 327519959] Future Scheduled 2021-10-15 [facility] 19:26:49 [code = COLONOSCOPY SCREENING] Future Scheduled 2021-10-15 SHINGLES VACCINES (1 [facility] 19:26:49 of 2) [code = SHINGLES VACCINES (1 of 2)] Future Scheduled 2021-10-15 INFLUENZA VACCINE Method [facility] Test 19:26:49 [code = INFLUENZA VACCINE] Future Scheduled 2021-10-12 HEPATITIS B VACCINES Met [facility] Test 17:47:43 (1 of 3 - 3-dose series) [code = HEPATITIS B VACCINES (1 of 3 - 3-dose series)] Future Scheduled 2021-10-12 COVID-19 VACCINE (#1) [facility] Test 17:47:43 [code = COVID-19 VACCINE (#1)] Future Scheduled 2021-10-12 Hepatitis C screening [facility] Test 17:47:43 (procedure) [code = 328314300] Future Scheduled 2021-10-12 COLONOSCOPY SCREENING [facility] Test 17:47:43 [code = COLONOSCOPY SCREENING] Future Scheduled 2021-10-12 SHINGLES VACCINES (1 [facility] Test 17:47:43 of 2) [code = SHINGLES VACCINES (1 of 2)] Future Scheduled 2021-10-12 INFLUENZA VACCINE [facility] Test 17:47:43 [code = [...] [facility] s Test 00:00:00 (procedure) [code = [facility] 94816420] Future Scheduled [address] [facility] (procedure) [code = [facility] 96993760] Future Scheduled 1981 DTAP/TDAP/TD VACCINES [facility] [...] [facility] Center colon (procedure) [code = 180820461] Future Scheduled [address] [facility] [facility] malignant neoplasm of [facility] colon (procedure) [code = 300469096] Future Scheduled [address] [facility] 00[facility]:00 malignant ne[facility] of [facility] colon (procedure) [code = 304971735] Future Scheduled [address] [facility] [facility] 00[facility]:00 malignant neoplasm of [facility] Center colon (procedure) [code = 343781705] Future Scheduled 1962 Sigmoid[facility] Medical Cent[facility] r Future Scheduled [address] [facility] 00:00:00 (combo) [code = CT Medical C enter Colonography (combo)] Future Scheduled [address] [facility] [facility] 00:00:00 malignant neoplasm of [facility] Center colon (procedure) [code = 902404784] Future Scheduled [address] [facility] 00:00:00 malignant neoplasm of [facility] Center colon (procedure) [code = 669921499] Future Scheduled [address] [facility] [facility] 00:00:00 malignant neoplasm of [facility] Center colon (procedure) [code = 691709097] Future Scheduled [address] [facility] 00:00:00 malignant neoplasm of [facility]ica [facility] Center colon (procedure) [code = 047087318] Future Scheduled 1960 [facility]] Medical Cente r Encounters Start End Encounter Admission Attending Care Care Encounter Source Date/Time Date/Time Type Type Clinicians Facility Department ID 2022-07-21 Inpatient ER [facility] On[facility] [id number] [facility] 07[facility]32 [facility] 2022-06-11 Outpatient 3 [id number] [place] [id number] [facility] 03:48:38 [facility] 2022-06-10 Outpatient 3 [id number] [place] [id number] [facility] 02:10:29 [facility] [place] 2022-06-09 Outpatient 3 [id number] [place] [id number] [facility] 10:37:19 0427 [facility] [place] 2022-06-[address] [facility] TIFFANY [id number] Univers 14:27:32 [facility]ERO [facility] 2022-06-01 Outpatient 3 [id number] ENCPL REF [id number] [facility] 12:13:29 0419 [facility] [place] 2020-12-14 Emergency [facility] [id number] Univers 03:38[facility] 2020-12[facility]14 Emergency [facility] [id number] Univers 02:28:47 [facility] 2020-12-14 Emergency [facility] [id number] Univers 02:03:46 [facility] 2020-12-13 Emergency [facility] [id number] Univers 15:19:05 y [facility] 2020-02-02 Inpatient [facility] [id number] [facility] 19:02:00 30 2020-02-02 Inpatient [facility] [id number] [facility] 19:02:00 30 2022-09-15 2022-09-15 Outpatient R LAWRENCE PETERSON [facility] 1 [id number] Univers 10:00:00 10:00:00 LAWRENCE PETERSON [facility] 2022-08-03 2022-08-03 Outpatient R JERRICA [facility] [id number] Univers 10:15:00 10:15:00 ROBINA [facility] 2022-07-23 2022-07-23 Emergency [facility] E[facility] [id number] Univers 12:04:00 12:53:00 PATRICIA [facility] 2022-07-23 2022-07-23 Emergency [facility] 1.2.832.390 [id number] Univers 12:04:00 12:53:00 Patricia [place] 350.1.13.10 i ty [place] [id number] [address] 2022-07-20 2022-07-20 Emergency X [facility] ERT [id number] Univers 04:39:00 05:00:00 ity [facility] 2022-07-20 2022-07-20 Emergency [facility] 1.2.166.356 [id number] Univers 04:39:00 05:00:00 RICARDO 350.1.13.10 i ty of [facility] [place] [id number] [address] 2022-07-20 2022-07-20 Telephone [facility] 1.2.840.114 [id number] Univers 00:00:00 00:00:00 [facility] 350.1.13.10 it y of José Miguel RICARDO 4.2.7.2.686 Neal as MÓNICA?BLEA [id number] Ak edison [address] MEDICAL OFFICE BUILDING 2022-07-18 2022-07-18 Transition ANASTASIIA Calderon 1.2.840.114 [id number] Univers 00:00:00 00:00:00 of Care Elyssa Thornton SABRINA 350.1.13.10 i ty of [place] [id number] [facility] [address] 2022-07-16 2022-07-16 Outpatient U LAWRENCE PETERSON [facility] 1 [id number] Univers 09:11:00 12:30:00 [facility] 2022-07-16 2022-07-16 Hospital TYE Peterson 1.2.840.114 [id number] Univers 09:11:00 12:30:00 Encounter Lawrence BEARD 350.1.13.10 ity of [facility] 4.2.7.2.686 Neal as [id number] [facility] [address] 2022-07-12 2022-07-12 Inpatient ER CHRYSTAL [facility] Medical ICU [id number] [facility] 04:02:00 14:55:00 ELLE 2022-07-11 2022-07-11 Emergency [facility] [id number] Univers 10:09:00 11:10:00 [facility] 2022-07-11 2022-07-11 Emergency [facility] [id number] Univers 10:09:00 11:10:00 ANA [facility] 2022-07-11 2022-07-11 Emergency Jenaroyes, TRAUMA 1.2.863.829 [id number] Univers 10:09:00 11:10:00 [facility] 350.1.13.10 [place] [id number] [facility] [address] 2022-07-11 2022-07-11 Emergency X NANCY [facility] ERT [id number] Univers 04:26:00 07:38:00 RAMANA hooks [facility] 2022-07-11 2022-07-11 Emergency Julianrical, Ángel O TRAU[place] 1.2. 840.114 [id number] Univers 04:26:00 07:38:[address] [facility] 350.1.13 .10 [place] [id number] [facility] [address] [place] 2022-07-11 2022-07-11 Emergency [facility] 1.2.479.446 [id number] Univers 00:22:00 00:26:00 [place] 350.1.13.10 i ty of [facility] 4.[place] [id number] [facility] [address] 2022-07-08 2022-07-08 Emergency X [facility] ERT [id number] Univers 13:26:00 13:45:00 ity of [facility] 2022-07-08 2022-07-08 Emergency TRAUMA 1.2.945.605 [id number] Univers 13:26:00 13:45:00 [place] 350.1.13.10 [place] [id number] [address] 2022-07-05 2022-07-05 Outpatient Zeke BECERRIL [facility] [id number] Univers 14:30:00 14:30:00 [facility] 2022-07-05 2022-07-05 Outpatient [facility] [id number] Univers 14:30:00 14:30:00 [facility] 2022-07-05 2022-07-05 Emergency [facility] [id number] Univers 05:53:00 11:12:00 ARISTEO [facility] 2022-07-05 2022-07-05 Emergency Hilda Miller TRAU[place] 1.2.840 .114 [id number] Univers 05:53:00 11:12:00 Aristeo Trinidad [place] 350.1.13.10 [place] [id number] [facility] [address] [place] 2022-07-04 2022-07-04 Emergency [facility] 1.2.151.845 [id number] Univers 14:13:00 14:19:00 [place] 350.1.13.10 i ty of [facility] 4.2.[place] [id number] [facility] [address] [place] 2022-07-04 2022-07-04 Outpatient [facility] [id number] Univers 14:00:00 14:00:00 [facility] 2022-07-04 2022-07-04 Outpatient R JERRICA [facility] ERT [id number] Univers 14:00:00 14:00:00 [facility] 2022-07-04 2022-07-[address] [facility] 1.2.840.114 [id number] Univers 00:00:00 00:00:00 Robina HEALTH 350.1.13.10 it y of Edward [place] 4.2.7.2.686 Neal as MÓNICA?BLEA [id number] [address] OFFICE [facility] 2022-07-04 2022-07-[address] [facility] 1.2.840.114 [id number] Univers 00:00:00 00:00:00 Robina HEALTH 350.1.13.10 it y of [place] 4.2.7.2.686 Neal as MÓNICA?BLEA [id number] [address] OFFICE [facility] 2022-06-28 2022-06-28 Telephone [facility] 1.2.894.211 [id number] Univers 00:00:00 00:00:00 [facility] 350.1.13.10 i ty of [place] [id number] [address] OFFICE [facility] 2022-06-27 2022-06-27 Outpatient R VERO [facility] [id number] Univers 13:15:00 13:15:00 BECCA PHAM [facility] 2022-06-21 2022-06-23 Hospital ER Sunny Alfonso [facility] [id number] [facility] 08:54:00 18:00:00 [facility]22-[facility]-21 2022-06-23 Inpatient ER RHETT MOORE Oncology [id number] [facility] 08:54:00 18:00:00 LAUREEN 2022-06-22 2022-06-22 Telephone [facility] 1.2.840.114 [id number] Univers 00:00:00 00:00:00 [facility] 350.1.13.10 it y of [place] 4.2.7.2.686 Neal as MÓNICA?BLEA [id number] [address] OFFICE [facility] 2022-06-21 2022-06-21 Orders Doctor EMETERIO 1.2.840.114 [id number] Univers 00:00:00 00:00:00 Only Unassigned, CHIRAG 350.1.13.10 ity of Mandan [facility] 4.2.7.2.686 Neal as [id number] [address] 2022-06-17 2022-06-[address] [facility] 1.2.840.114 [id number] Univers 00:00:00 00:00:00 [facility] 350.1.13.10 it y of [place] 4.2.7.2.686 Neal as MÓNICA?BLEA [id number] Ak edison [address] OFFICE [facility] 2022-06-16 2022-06-16 Office [facility] 1.2.840.114 [id number] Univers 11:30:00 11:45:00 Visit [facility] 350.1.13.10 i ty [place] [id number] [address] OFFICE [facility] 2022-06-16 2022-06-16 Outpatient R LAWRENCE PETERSON [facility] 1 [id number] Univers 11:30:00 11:30:00 LAWRENCE PETERSON ity of [facility] 2022-06-16 2022-06-16 Telephone Donna [facility] 1.2.741.951 [id number] Univers 00:00:00 00:00:00 [facility] 350.1.13.10 i ty of [place] [id number] [address] OFFICE BUILDING 2022-06-14 2022-06-14 [facility] 1.2.429.387 [id number] Univers 00:00:00 00:00:00 [facility] 350.1.13.10 i ty of [place] [id number] [facility] MEDICAL [address] OFFICE BUILDING 2022-06-08 2022-06-08 Telephone EMETERIO Pham 1.2.486.048 [id number] Univers 00:00:00 00:00:00 Becca BEARD 350.1.13.10 i ty of HOSPITAL 4.2.7.2.686 Neal as [id number] [facility] [address] 2022-06-08 2022-06-08 Transition ANASTASIIA Calderon 1.2.840.114 [id number] Univers 00:00:00 00:00:00 of Care Elyssasuma BENNETT 350.1.13.10 i ty of [place] [id number] [facility] [address] 2022-05-26 2022-06-07 [facility] [id number] Univers 15:42:00 15:09:00 ALLAN itkirit [facility] 2022-05-26 2022-06-07 Hospital Meche Zapata 1.2.840.1 14 [id number] Univers 15:42:00 15:09:00 Encounter Luis Huerta 350.1.13.10 ity of [facility] 4.2.7.2.686 Lance Swift [id number] Medical Cris Allan 097 anch 2022-06-07 2022-06-07 Outpatient R [facility] [id number] Univers 13:00:00 13:00:00 RENEE hooks [facility] 2022-06-03 2022-06-03 Surgery TYE Peterson 1.2.840.114 [id number] Univers 07:00:00 09:33:00 Lawrence BEARD 350.1.13.10 i ty of [facility] 4.2.7.2.686 Neal as [id number] [facility] [address] 2022-06-02 2022-06-02 Telephone [place] 1.2.300.857 [id number] Univers 00:00:00 00:00:00 [facility] 350.1.13.10 ity of [facility] 4.[place] [id number] Ak dical NAL [address] BUILDING 2022-06-01 2022-06-01 Ira Becerril [facility] 1.2.840.114 [id number] Univers 00:00:00 00:00:00 [facility] 350.1.13.10 it y of José Miguel [facility] 4.2.7.2.686 Neal as MÓNICA?BLEA [id number] Ak dical KNEY [address] [place] MEDICAL OFFICE BUILDING 2022-05-30 2022-05-30 Surgery TYE Lynch 1.2.840.114 [id number] Univers 20:00:00 22:46:00 Allan CHIRAG 350.1.13.10 it y of HOSPITAL 4.2.7.2.686 Neal as [id number] [address] 2022-05-29 2022-05-29 Surgery TYE Lynch 1.2.840.114 [id number] Univers 07:20:00 10:33:00 Allan CHIRAG 350.1.13.10 it y of [facility] 4.2.7.2.686 Neal as [id number] [address] 2022-05-26 2022-05-26 Outpatient R JERRICA [facility] [id number] Univers 09:45:00 09:45:00 ROBINA y [facility] 2022-05-24 2022-05-24 Outpatient R ROGER [facility] [id number] Univers 00:00:00 00:00:00 WOO ity [facility] 2022-05-24 2022-05-24 Prep For Vero [facility] 1.2.840.114 [id number] Univers 00:00:00 00:00:00 Surgery Becca [facility] 350.1.13.10 ity of [facility] 4.2.[place] [id number] Ak dical NAL 188 [facility] 2022-05-23 2022-05-23 Emergency X NEYMAR [facility] ERT [id number] Univers 16:40:00 18:12:00 FOLUSHO ity [facility] 2022-05-23 2022-05-23 [facility] [id number] Univers 16:40:00 18:12:00 FOLUSHO ity [facility] 2022-05-23 2022-05-23 Emergency [facility] 1.2.840.114 [id number] Univers 16:40:00 18:12:00 Follucia Barbosa [place] 350.1.13.10 ity of [facility] 4.2.[place] [phone] [address] 2022-05-23 2022-05-23 Emergency Formerly [facility] 1.2.644.549 [id number] Univers 03:49:00 06:12:00 Herminio Costa [place] 350.1.13.10 ity of [facility] 4.2.7.2.[place] [id number] [address] 2022-05-23 2022-05-[address] [facility] 1.2.840.114 [id number] Univers 00:00:00 00:00:00 [facility] 350.1.13.10 it y of José Miguel [facility] [place] 4.2.7.2.686 Neal as MÓNICA?BLEA [phone] Ak edison RAOEY [address] [place] MEDICAL OFFICE BUILDING 2022-05-19 2022-05-19 Outpatient R VERO [facility] [id number] Univers 09:30:00 10:37:40 BECCA PHAM [facility] 2022-05-19 2022-05-19 Office [facility] 1.2.840.114 [id number] Univers 09:30:00 10:37:40 Visit Becca TORREZ 350.1.13.10 ity of [facility] 4.2.7.2.686 [place] [phone] Ak edison ARENAS [address] BUILDING 2022-05-19 2022-05-19 Orders Doctor ASHER 1.2.840.114 [id number] Univers 00:00:00 00:00:00 Only Unassigned, CHIRAG 350.1.13.10 ity of [facility] 4.2.7.2.686 Neal as [phone] [address] 2022-05-17 2022-05-17 Outpatient R ROGER [facility] [id number] Univers 08:00:00 08:57:35 WOO y [facility] 2022-05-17 2022-05-17 Orders Doctor EMETERIO 1.2.840.114 [id number] Univers 00:00:00 00:00:00 Only Unassigned, CHIRAG 350.1.13.10 ity of [facility] 4.2.7.2.686 Neal as [id number] [address] 2022-05-16 2022-05-16 Orders Doctor EMETERIO 1.2.840.114 [id number] Univers 00:00:00 00:00:00 Only Unassigned, CHIRAG 350.1.13.10 ity of [facility] 4.2.7.2.686 Neal as [id number] [address] 2022-05-05 2022-05-05 Outpatient R [facility] [id number] Univers 10:00:00 10:00:00 ROBINA [facility] 2022-05-05 2022-05-[address] [facility] 1.2.840.114 [id number] Univers 00:00:00 00:00:00 [facility] 350.1.13.10 it y of José Miguel TORREZ 4.2.7.2.686 Neal as MÓNICA?BLEA [phone] [address] MEDICAL OFFICE BUILDING 2022-05-04 2022-05-04 Orders Doctor EMETERIO 1.2.840.114 [id number] Univers 00:00:00 00:00:00 Only Unassigned, CHIRAG 350.1.13.10 ity of [facility] 4.2.7.2.686 Neal as [phone] [address] 2022-05-03 2022-05-[address] [facility] 1.2.840.114 [id number] Univers 09:45:00 10:15:00 Visit [facility] 350.1.13.10 it y of José Miguel [facility] [place] 4.2.7.2.686 Neal as MÓNICA?BLEA [id number] Ak dic[address] OFFICE [facility] 2022-05-03 2022-05-03 Outpatient R JERRICA [facility] [id number] Univers 09:45:00 09:45:00 ROBINA ity of [facility] 2022-04-22 2022-04-22 Orders Doctor EMETERIO 1.2.840.114 [id number] Univers 00:00:00 00:00:00 Only Unassigned, CHIRAG 350.1.13.10 ity of [facility] 4.2.7.2.686 Neal as [id number] [address] 2022-04-22 2022-04-22 Telephone [facility] 1.2.840.114 [id number] Univers 00:00:00 00:00:00 Straohl Jeronimo [facility] [place] 350.1.13.10 ity of [facility] 4.2.7.2.[place] [id number] Ak dic[address] 2022-04-13 2022-04-13 Office [facility] 1.2.947.198 [id number] Univers 09:30:00 10:00:00 Visit Dawson TORREZ 350.1.13.10 ity of [facility] 4.2.7.2.[place] [id number] Ak dicwv NAL [address] [place] [address] 2022-04-13 2022-04-13 Outpatient R BINU CHOUDHURYALHillary [facility] [id number] Univers 09:30:00 09:30:00 MARYLIN CHOUDHURYL ity [facility] 2022-04-13 2022-04-13 Orders Doctor EMETERIO 1.2.840.114 [id number] Univers 00:00:00 00:00:00 Only Unassigned, CHIRAG 350.1.13.10 ity of [facility] 4.2.7.2.686 Neal as [phone] [address] 2022-04-13 2022-04-13 Telephone [facility] 1.2.840.114 10 [id number] Univers 00:00:00 00:00:00 Dawson Decker MULTISPEC 350.1.13.10 ity of [place] 4.2.7.2.686 [facility] [phone] [facility] [place] 758005 [place] [facility] 2022-04-07 2022-04-07 [facility] 1.2.840.114 [id number] Univers 10:30:00 11:02:20 Visit [facility] 350.1.13.10 it y of José Miguel TORREZ 4.2.7.2.686 Neal as MÓNICA?BLEA [id number] [address] MEDICAL OFFICE BUILDING 2022-04-07 2022-04-07 Outpatient R [facility] [id number] Univers 10:30:00 10:30:00 ROBINA ity [facility] 2022-04-06 2022-04-06 Telephone [facility] 1.2.840.114 [id number] Univers 00:00:00 00:00:00 [facility] 350.1.13.10 it y of José Miguel TORREZ 4.2.7.2.686 Neal as MÓNICA?BLEA [phone] [address] MEDICAL OFFICE [facility] 2022-04-02 2022-04-02 Pediatric Orthodontist 1, [facility] Sleep Lab Bed [facility] 1. 2.840.114 [id number] Univers 20:00:00 22:30:00 Visit Dawson Choudhury AN[place] 350.1.13. 10 ity of [place] 4.2.7.2.686 [facility] [phone] [facility] [address] 2022-04-02 2022-04-02 Outpatient R DAWSON CHOUDHURY [facility] [id number] Univers 20:00:00 20:00:00 DAWSON CHOUDHURY ity [facility] 2022-04-02 2022-04-02 Orders Doctor ASHER 1.2.840.114 [id number] Univers 00:00:00 00:00:00 Only Unassigned, CHIRAG 350.1.13.10 ity of [place] [facility] 4.2.7.2.686 Neal as [id number] [facility] [address] [place] 2022-03-24 2022-03-24 [facility] Alphonse Manjarrez [facility] 1.2.840.114 [id number] Univers 08:01:23 23:59:00 Encounter RICARDO 350.1.13.10 ity of [place].2.7.2.686 [place] [id number] [facility] [address] [place] 2022-03-24 2022-03-24 Outpatient R [facility] [id number] Univers 07:57:08 08:00:00 DELROY ity of [facility] 2022-03-24 2022-03-24 [facility] 1.2.840.114 [id number] Univers 07:57:08 08:00:00 Encounter Delroy TORREZ 350.1.13.10 ity of [facility] 4.2.7.2.686 [facility] [phone] [place] 292304 [place] 2022-02-16 2022-02-[address] [facility] 1.2.840.114 [id number] Univers 00:00:00 00:00:00 [facility] 350.1.13.10 it y of José Miguel TORREZ 4.2.7.2.686 Neal as MÓNICA?BLEA [id number] [address] MEDICAL OFFICE BUILDING 2022-02-15 2022-02-15 Orders Doctor EMETERIO 1.2.840.114 [id number] Univers 00:00:00 00:00:00 Only Unassigned, CHIRAG 350.1.13.10 ity of [facility] 4.2.7.2.686 Neal as [phone] [address] 2022-02-03 2022-02-03 Orders Doctor EMETERIO 1.2.840.114 [id number] Univers 00:00:00 00:00:00 Only Unassigned, CHIRAG 350.1.13.10 ity of [facility] 4.2.7.2.686 Neal as [phone] [address] 2022-02-02 2022-02-02 Office [place] [address].2.840.114 [id number] Univers 09:30:00 09:45:00 Visit [facility] 350.1.13.10 it y of [place] 4.2.7.2.686 Neal as MÓNICA?BLEA [id number] [address] OFFICE BUILDING 2022-02-02 2022-02-02 Outpatient R [facility]UELAN[facility]UM[facility] [id number] Univers 09:30:00 09:40:22 [facility] 2022-01-17 2022-01-17 Orders Doctor EMETERIO 1.2.840.114 [id number] Univers 00:00:00 00:00:00 Only Unassigned, CHIRAG 350.1.13.10 ity of [facility] 4.2.7.2.686 Neal as [phone] [address] 2022-01-03 2022-01-[address] [facility] 1.2.840.114 [id number] Univers 09:15:00 09:30:00 Visit [facility] 350.1.13.10 it y of [place] 4.2.7.2.686 Neal as MÓNICA?BLEA [id number] [address] OFFICE [facility] 2022-01-03 2022-01-03 Outpatient R ENMANUELANJUM [facility] [id number] Univers 09:15:00 09:15:00 [facility] 2021-12-08 2021-12-08 Office [facility] 1.2.483.733 [id number] Univers 10:20:00 10:40:00 [facility] Decker DWAYNEDAVIDE 350.1.13.10 ity of [place].2.7.2.686 [place] [id number] Ak edison [facility] 085 [facility] 2021-12-08 2021-12-08 Outpatient R DAWSON CHOUDHURY [facility] [id number] Univers 10:20:00 10:20:00 DAWSON CHOUDHURY itkirit [facility] 2021-12-08 2021-12-08 Outpatient R BINU CHOUDHURYALHillary [facility] [id number] Univers 10:20:00 10:20:00 GLENROYMARYLIN PÉREZL itkirit [facility] 2021-12-08 2021-12-08 Orders Doctor ASHER 1.2.840.114 [id number] Univers 00:00:00 00:00:00 Only Unassigned, CHIRAG 350.1.13.10 ity of [place] [facility] 4.2.7.2.686 Neal as [phone] [facility] [address] 2021-12-02 2021-12-02 Office Jerrica [facility] 1.2.840.114 [id number] Univers 11:00:00 11:15:00 Visit [facility] 350.1.13.10 it y of José Miguel TORREZ 4.2.7.2.686 Neal as MÓNICA?BLEA [id number] [address] MEDICAL OFFICE BUILDING 2021-12-02 2021-12-02 Outpatient R JERRICA [facility] [id number] Univers 11:00:00 11:00:00 ROBINA gradykirit [facility] 2021-11-25 2021-11-25 Outpatient R GLENROYDAWSON PÉREZ [facility] [id number] Univers 20:00:00 20:00:00 DAWSON CHOUDHURY itkirit [facility] 2021-11-22 2021-11-22 Outpatient R GLENROYSANGITAJALEELMARYLINL [facility] [id number] Univers 10:15:00 10:15:00 MACEYDAWSON itkirit [facility] 2021-11-04 2021-11-04 Pediatric Orthodontist [facility] 1.2 .840.114 [id number] Univers 10:00:00 10:15:00 Visit Dawson Choudhury 350.1.13. 10 ity of [place] 4.2.7.2.686 [place] [facility] [id number] [facility] [address] 2021-11-04 2021-11-04 Outpatient R MACEY BINUCHANTELLEL [facility] [id number] Univers 10:00:00 10:00:00 SARAMARYLIN MARMOLEJOL ity [facility] 2021-11-04 2021-11-04 Orders Doctor EMETERIO 1.2.840.114 [id number] Univers 00:00:00 00:00:00 Only Unassigned, CHIRAG 350.1.13.10 ity of [place] [facility] 4.2.7.2.686 Neal as [phone] [address] 2021-11-02 2021-11-02 Outpatient [facility] [id number] Univers 09:30:00 10:02:11 ROBINA [facility] 2021-11-02 2021-11-[address] [facility] 1.2.840.114 [id number] Univers 09:30:00 09:45:00 Visit [facility] 350.1.13.10 it y of [place] 4.2.7.2.686 Neal as MÓNICA?BLEA [id number] [address] MEDICAL OFFICE [facility] 2021-11-02 2021-11-02 Telephone [facility] 1.2.840.114 [id number] Univers 00:00:00 00:00:00 Strahil T MULTISPEC 350.1.13.10 ity of [place] 4.2.7.2.686 [place] [phone] [facility] AND JONAH [address] [place] [facility] 2021-10-07 2021-10-[address] [facility] 1.2.840.114 [id number] Univers 00:00:00 00:00:00 [facility] 350.1.13.10 it y of [place] 4.2.7.2.686 Neal as MÓNICA?BLEA [id number] [address] MEDICAL OFFICE BUILDING 2021-10-05 2021-10-05 Outpatient R [facility] [id number] Univers 14:15:00 14:43:53 ROBINA [facility] 2021-10-05 2021-10-[address] [facility] 1.2.840.114 [id number] Univers 14:15:00 14:30:00 Visit [facility] 350.1.13.10 it y of [place] 4.2.7.2.686 Neal as MÓNICA?BLEA [phone] Ak edison LOAIZA 044 [facility] OFFICE [facility] 2021-10-05 2021-10-05 Outpatient R JERRICA [facility] [id number] Univers 14:15:00 14:15:00 [facility] 2021-09-22 2021-09-22 [facility] 1.2.533.230 [id number] Univers 13:40:00 14:00:00 Visit Dawson TORREZ 350.1.13.10 ity [facility] 4.2.7.2.686 [place] [phone] Ak alpaletty [facility] 085 [facility] 2021-09-22 2021-09-22 Outpatient [facility] [id number] Univers 13:40:00 13:40:00 [facility] 2021-09-22 2021-09-22 Outpatient R [facility] [id number] Univers 13:40:00 13:40:00 [facility] 2021-09-21 2021-09-21 Letter EMETERIO Morales 1.2.840.114 [id number] Univers 00:00:00 00:00:00 (Out) Erma Jeronimo CHIRAG 350.1.13.10 it y of [facility] 4.2.7.2.686 Neal as [phone] [address] 2021-09-20 2021-09-20 Outpatient R [facility] [id number] Univers 15:00:00 15:33:41 MAGDALENE hooks o f [facility] 2021-09-20 2021-09-20 Urgent [facility] 1.2.840. 114 [id number] Univers 15:00:00 15:33:41 Care [facility] 350.1.13.10 ity [facility] 4.2.7.2.686 Neal as MÓNCIA?BLEA [phone] [facility] JALENROSA 370 [facility] OFFICE [facility] 2021-09-20 2021-09-20 Outpatient R JOEL, [facility] [id number] Univers 15:00:00 15:33:41 MAGDALENE hooks o f [facility] 2021-09-15 2021-09-15 Outpatient R [facility] [id number] Univers 11:15:00 11:37:11 ROBINA kirit [facility] 2021-09-15 2021-09-[address] [facility] 1.2.840.114 [id number] Univers 11:15:00 11:30:00 Visit [facility] 350.1.13.10 it y of Edziyad [facility] [place] 4.2.7.2.686 Neal as MÓNICA?BLEA [phone] [address] OFFICE [facility] 2021-09-15 2021-09-15 Outpatient eZke BECERRIL [facility] [id number] Univers 11:15:00 11:15:00 ROBINA [facility] 2021-06-30 2021-06-30 Orders Doctor ASHER 1.2.840.114 [id number] Univers 00:00:00 00:00:00 Only Unassigned, CHIRAG 350.1.13.10 ity of [place] [facility] 4.2.7.2.686 Neal as [phone] [address] 2021-05-24 2021-05-[address] [facility] 1.2.840.114 [id number] Univers 00:00:00 00:00:00 [facility] 350.1.13.10 it y of [place] 4.2.7.2.686 Neal as MÓNICA?BLEA [id number] [address] OFFICE [facility] 2021-05-11 2021-05-11 Outpatient Zeke [facility] [id number] Univers 11:45:00 11:45:00 ROBINA [facility] 2021-03-31 2021-04-02 Emergency Shamir CORBIN [facility] ERT [id number] Univers 09:05:00 07:46:00 HERMINIO [facility] 2021-03-31 2021-04-02 Emergency Ladonna Bryant [facility] 1.2.8 40.114 [id number] Univers 09:05:00 07:46:00 Herminio Corbin 350.1.13.10 ity of [facility] 4.2.7.2.686 [facility] [id number] [address] 2020-12-21 2020-12-21 Emergency [facility] ERT [id number] Univers 12:12:00 16:04:00 MAKAYLA ity [facility] 2020-12-21 2020-12-21 Emergency [facility] 1.2.731.821 [id number] Univers 12:12:00 16:04:00 Makayla TORREZ 350.1.13.10 i ty of [facility] 4.2.7.2.686 [facility] [phone] [address] 2020-12-10 2020-12-10 Outpatient Zeke BECERRIL [facility] [id number] Univers 09:00:00 09:00:00 ROBINA hooks [facility] 2020-12-08 2020-12-08 Emergency [facility] 1.2.044.418 [id number] Univers 05:45:00 08:15:00 Herminio Costa Ricardo 350.1.13.10 ity of [place] 4.2.7.2.686 [facility] [id number] [address] 2020-12-08 2020-12-08 Emergency X [facility] E[facility] [id number] Univers 05:45:00 08:15:00 HERMINIO ity [facility] 2020-11-10 2020-11-10 Outpatient [facility] [id number] Univers 13:10:00 13:10:00 ity of [facility] 2020-11-10 2020-11-10 Outpatient Zeke BECERRIL [facility] [id number] Univers 09:30:00 10:05:31 ROBINA hooks [facility] 2020-11-10 2020-11-10 Office [facility] 1.2.840.114 [id number] Univers 09:22:11 09:52:11 Visit [facility] 350.1.13.10 it y of José Miguel Torrez 4.2.7.2.686 Neal as Mónica?Blea [phone] [address] Medical Office Building 2020-09-19 2020-09-19 Outpatient ELYSSA [facility] 456 7- [place] 03:24:00 03:24:00 E__ [id number] Medica l Group 2020-09-04 2020-09-04 Orders Doctor EMETERIO 1.2.840.114 [id number] Univers 00:00:00 00:00:00 Only Unassigned, CHIRAG 350.1.13.10 ity of [place] [facility] 4.2.7.2.686 Neal as [id number] [address] 2020-08-22 2020-08-22 Outpatient ELYSSA [facility] 456 [place] 05:19:00 05:19:00 E__ [id number] Medica l Group 2020-08-17 2020-08-17 Outpatient Zeke [facility] [id number] Univers 09:00:00 09:00:00 WONDIFUL ity o f [facility] 2020-08-06 2020-08-07 Hospital Edgard Leo 1.2.840.1 14 [id number] Univers 13:41:00 23:00:00 Encounter Magali Curtis 350.1.13.10 ity of [facility] 4.2.7.2.686 Neal as [phone] [place] 586806 [place] 2020-08-03 2020-08-05 Emergency Patricia Lion 1.2.840. 114 [id number] Univers 08:54:00 16:11:00 Allen Maravilla 350.1.13.10 ity of [facility] 4.2.7.2 .686 [place] [id number] [place] 586802 [place] 2020-07-31 2020-07-31 Emergency [facility] 1.2.840.114 [id number] Univers 08:39:00 14:39:00 Ladonna Torrez 350.1.13.10 ity of [place] 4.2.7.2.686 [facility] [id number] [facility] [address] 2020-07-25 2020-07-25 Outpatient BENREY_URSULA [facility] 456 7 [place] 06:29:00 06:29:00 E__ [id number] Medica l Group 2020-07-24 2020-07-24 Outpatient BENRUFINO_URSULA [facility] 456 7 [place] 11:00:00 11:00:00 E__ [id number] Medica l Group 2020-06-08 2020-06-08 Emergency [facility] 1.2.390.311 [id number] 6577 [facility] 13:48:00 17:01:00 Patricia Riceton 350.1.13.10 i ty of [place] 4.2.7.2.686 [facility] [phone] [place] 131734 [place] 2020-01-28 2020-01-28 Outpatient JAM, [facility] [id number] [address] [place] [address] 00:00:00 00:00:00 [facility] 2020-01-20 2020-01-20 Outpatient MOUNIKA, [facility] [id number] [place] 11:36:00 16:26:30 [facility] 2019-10-29 2019-10-31 Inpatient [facility] [id number] [place] [address] 00:00:00 00:00:00 YASMINE 164 Ak meghann 2019-03-12 2019-03-12 [facility] 1.2.840.114 [id number] Univers 14:43:00 23:59:00 Encounter [facility] 350.1.13.10 ity of 4.2.7.2.686 [facility] [id number] [facility] 806 [place] 2019-03-11 2019-03-12 [facility] 1.2.840.114 [id number] Univers 15:17:00 17:21:00 Encounter [facility] 350.1.13.10 ity of 4.2.7.2.686 [place] [id number] [facility] 011 [place] 2019-03-11 2019-03-12 Office Surgery, Td General [facility] 1.2.8 40.114 [id number] Univers 09:09:17 08:54:29 Visit Sofia Malone [facility] 350.1.13.10 ity of [place] 4.2.7.2.686 [place] [phone] [facility] [address] 2018-10-31 2018-10-31 Office Surgery, Tdc Vascular [facility] 1.2. 840.114 [id number] Univers 08:41:29 09:11:29 Visit Padron [facility] 350.1.13.10 ity of 4.2.7.2.686 Akbar costa [id number] [facility] [address] 2014-07-22 2014-07-22 [facility] [id number] Memoria 17:51:00 21:57:00 Emergency r [place] 00 l [facility] 2014-07-22 2014-07-22 [facility] [id number] Memoria 17:51:00 21:57:00 Emergency r [place] 00 l [facility] 2014-07-22 2014-07-22 Outpatient Griffin, 2.16.840. 2.16.840.1 . [id number] 12:51:00 16:57:00 Christy 1.456525. 119795.3.61 00 Radhika 3.615.0.1 5.0.101 01 Results Test Description Test Time Test Comments Results Result Sour e Comments RAD, CHEST, 1 2022-06-15 Post-intubationReason VIEW, NON DEPT 0 for 13:01:00 exam:->encephalopathy , r/o [facility] - aspirationShould this [facility] be performed at the KEVIN KAYE bedside?->Yes : 1960 Sex: M FINAL REPORT CLINICAL HISTORY: encephalopathy, r/o aspiration TECHNIQUE: 1 view of the chest COMPARISON: None IMPRESSION: There are no focal infiltrates or pleural effusions. There is no significant cardiomegaly. The visualized bones are intact. Signed: Shimon [place] Verified Date/Time: 07/12/2022 13:01:03 RIN ANTIBODY 2022-07-12 12:18:47 Test Item Value Reference Range Interpretation Comme nts HEPARIN ANTIBODY (BEAKER) (test Positive-See Serotonin Release Assa y Negative A code = 646) for Confirmation HEPARIN ANTIBODY OD (BEAKER) (test 3.000 <0.400 H code = 2659) 4T TOTAL SCORE (BEAKER) (test code 3 = 2661) BASIC METABOLIC [id number] 09:21:22 Test Item Value Reference Range Interpretation [...] not appl icable for dialysis patien ts [employer] Consultant ID - [id number] 07:01:03 Test Item Value Reference Range Interpretation Comments PHOSPHORUS (BEAKER) (test code = 3.1 mg/dL 2.3-4.7 604) [employer] Consultant ID Marquis KENNEY WHEPATIC FUNCTION [id number] 07:01:02 Test Item Value Reference Range Interpretation [...] (test code = 21 U/L 6-55 347) [employer] Consultant ID - PABLITO [id number] 07:01:02 Test Item Value Reference Range Interpretation Comments MAGNESIUM (BEAKER) (test code = 2.5 mg/dL 1.6-2.6 627) [employer]anchise [employer] Consultant ID Marquis KENNEY WB-TYPE NATRIURETIC FACTOR (BNP)2022-07-12 06:45:03 Test Item Value Reference Range Interpretation Comments B-TYPE NATRIURETIC PEPTIDE (BEAKER) 33 pg/mL 0-100 (test code = 700) [employer]anchise Field Consultant ID Marquis KENNEY [id number] 06:38:12 Test Item Value Reference Range Interpretation [...] of thrombosis is within 95-100% range. PROTHROMBIN TIME/[id number] 06:28:19 Test Item Value Reference Range Interpretation Comments PROTIME (PIO) (test code = 13.9 seconds 11.9-14.2 759) INR (ALMAAKER) (test code = 370) 1.09 <=5.90 RECOMMENDED COUMADIN/WARFARIN INR THERAPY RANGESSTANDARD DOSE: 2.0 - 3.0 Includes: PROPHYLAXIS for venous thrombosis, systemic embolization; TREATMENT for venous thrombosis and/or pulmonary embolus.HIGH RISK: Target INR is 2.5-3.5 for patients with mechanical heart valves.POCT-GLUCOSE [id number] 06:10:03 Test Item Value Reference Range Interpretation Comments POC-GLUCOSE METER 97 mg/dL 70-110 : TESTED A T [facility] 6720 (PIO) (test code = CHRISTAL ENG [place], 1538) [address]: Franchise Field Consultant/Techni santosh ID = [id number] for Jackie Sousa COMP. METABOLIC PANEL ([id number])2022-07-11 11:58:27 Test Item Value Reference Range Interpretation Comments NA (test code = 138 mmol/L 135-145 1105256245) K (test code = 4.5 mmol/L 3.5-5.0 Slight hemoly sis 4135728198) CL (test code = 101 mmol/L 98-108 0220926764) CO2 TOTAL (test 23 mmol/L 23-31 code = 4268039878) AGAP (test code = 14 2-16 3804255477) BUN (test code = 14 mg/dL 7-23 Slight hemo lysis 3909779171) GLUCOSE (test code 94 mg/dL 70-110 = 7171155762) CREATININE (test 0.67 mg/dL 0.60-1.25 code = 7456762676) TOTAL BILI (test 0.6 mg/dL 0.1-1.1 code = 4820858076) CALCIUM (test code 9.0 mg/dL 8.6-10.6 = 2519867847) T PROTEIN (test 7.2 g/dL 6.3-8.2 code = 2156828042) ALBUMIN (test code 4.5 g/dL 3.5-5.0 = 8090078364) ALK PHOS (test 88 U/L 34-122 Slight hemoly sis code = 2762764865) ALTv (test code = 31 U/L 5-50 1742-6) AST(SGOT) (test 40 U/L 13-40 Slight hemol ysis code = 4144156022) eGFR (test code = 121.4 mL/min/1.73m2 7953469021) DEWAYNE (test code = Association of DEWAYNE) [...] or urine or abnormalities in imaging tests). [facility] WITH [id number] 11:18:00 Test Item Value Reference Range Interpretation Comments WBC (test code = 7.15 See_Comment [Automated 2103-2) message] The sy stem which generated this result transmitted reference range : 4.20 - 10.70 10*3/?L. The reference range was not used to interpret this result as normal/abnormal . RBC (test code = 3.45 See_Comment L [Automated 462-0) message] The sy stem which generated this [...] (test code = 53.9 fL 38.5-51.6 H 73672-0) RDW-CV (test code = 17.2 % 12.1-15.4 H 788-0) PLT (test code = 400 See_Comment H [Automated 777-3) message] The sy stem which generated this result transmitted reference range : 150 - 328 10*3/ ?L. The reference r mitra was not used to interpret this result as normal/abnormal . MPV (test code = 8.8 fL 9.8-13.0 L 35542-2) NRBC/100 WBC (test 0.0 See_Comment [Automat ed code = 7691825621) message] The system which generated this result transmitted reference range : 0.0 - 10.0 /100 WBCs. The refer ence range was not u sed to interpret th is result as normal/abnormal . NRBC x10^3 (test code See_Comment [Auto mated = 9779328575) message] The s ystem which generated this result transmitted reference range : 10*3/?L. The reference range was not used to interpret this result as normal/abnormal . GRAN MAT (NEUT) % 71.5 % (test code = 770-8) IMM GRAN % (test code 0.40 % = 4711140858) LYMPH % (test code = 17.6 % 736-9) MONO % (test code = 7.4 % 5905-5) EOS % (test code = 1.8 % 713-8) BASO % (test code = 1.3 % 706-2) GRAN MAT x10^3(ANC) 5.11 10*3/uL 1.99-6.95 (test code = 3155023548) IMM GRAN x10^3 (test 0.03 10*3/uL 0.00-0.06 code = 7108254261) LYMPH x10^3 (test code 1.26 10*3/uL 1.09-3.23 = 731-0) MONO x10^3 (test code 0.53 10*3/uL 0.36-1.02 = 742-7) EOS x10^3 (test code = 0.13 10*3/uL 0.06-0.53 711-2) BASO x10^3 (test code 0.09 10*3/uL 0.01-0.09 = 704-7) Lab Interpretation Abnormal (test code = 15410-7) [facility] 09:27:00 Test Item Value Reference Range Interpretation Comments POCT GLU (test code = 1047033169) 95 mg/dL 70-110 Lab Interpretation (test code = Normal 65747-5) [facility] ([id number])2022-07-05 13:14:57 Test Item Value Reference Range Interpretation Comments NA (test code = 137 mmol/L 135-145 4346014064) K (test code = 4.2 mmol/L 3.5-5.0 8921265005) CL (test code = 100 mmol/L 98-108 7851710341) CO2 TOTAL (test code = 24 mmol/L 23-31 8950592337) AGAP (test code = 13 2-16 0922727111) BUN (test code = 11 mg/dL 7-23 3124782785) GLUCOSE (test code = 124 mg/dL 70-110 H 7325433831) CREATININE (test code = 0.81 mg/dL 0.60-1.25 6991857660) TOTAL BILI (test code = 0.6 mg/dL 0.1-1.4 4161274936) CALCIUM (test code = 9.1 mg/dL 8.6-10.6 7945000985) T PROTEIN (test code = 7.0 g/dL 6.3-8.2 9792695049) ALBUMIN (test code = 4.3 g/dL 3.5-5.0 8203971334) ALK PHOS (test code = 103 U/L 34-122 9419631278) ALTv (test code = 28 U/L 5-50 2-6) AST(SGOT) (test code = 39 U/L 13-40 1124843046) eGFR (test code = 97.5 mL/min/1.73m2 0398113019) DEWAYNE (test code = DEWAYNE) Association of [...] tests). Lab Interpretation Abnormal (test code = 36887-0) [facility] [id number] 12:25:35 Test Item Value Reference Range Interpretation Comments NT-proBNP (test code = 523 pg/mL <=125 H 9454660312) DEWAYNE (test code = DEWAYNE) Biotin has been reported to cause a negative bias, interpret results relative to patient's use of biotin. Lab Interpretation (test Abnormal code = 29016-8) [facility] [id number] 12:25:35 Test Item Value Reference Range Interpretation Comments TROPONIN I (test code = 0.009 ng/mL <=0.034 3155219129) DEWAYNE (test code = DEWAYNE) Reference (Normal) [...] biotin. Lab Interpretation Normal (test code = 10620-9) [facility] WITH [id number] 12:01:31 Test Item Value Reference Range Interpretation Comments WBC (test code = 7.09 See_Comment [Automated 1490-2) message] The sy stem which generated this result transmitted reference range : 4.20 - 10.70 10*3/?L. The reference range was not used to interpret this result as normal/abnormal . RBC (test code = 3.08 See_Comment L [Automated 583-8) message] The sy stem which generated this [...] (test code = 52.8 fL 38.5-51.6 H 90893-1) RDW-CV (test code = 16.1 % 12.1-15.4 H 788-0) PLT (test code = 436 See_Comment H [Automated 777-3) message] The sy stem which generated this result transmitted reference range : 150 - 328 10*3/ ?L. The reference r mitra was not used to interpret this result as normal/abnormal . MPV (test code = 8.9 fL 9.8-13.0 L 51813-8) NRBC/100 WBC (test 0.3 See_Comment [Automat ed code = 0210573283) message] The system which generated this result transmitted reference range : 0.0 - 10.0 /100 WBCs. The refer ence range was not u sed to interpret th is result as normal/abnormal . NRBC x10^3 (test code 0.02 See_Comment [Auto mated = 0954063547) message] The s ystem which generated this result transmitted reference range : 10*3/?L. The reference range was not used to interpret this result as normal/abnormal . GRAN MAT (NEUT) % 69.0 % (test code = 770-8) IMM GRAN % (test code 0.40 % = 2744474019) LYMPH % (test code = 16.1 % 736-9) MONO % (test code = 12.7 % 5905-5) EOS % (test code = 0.8 % 713-8) BASO % (test code = 1.0 % 706-2) GRAN MAT x10^3(ANC) 4.89 10*3/uL 1.99-6.95 (test code = 0646509707) IMM GRAN x10^3 (test 0.03 10*3/uL 0.00-0.06 code = 3407064171) LYMPH x10^3 (test code 1.14 10*3/uL 1.09-3.23 = 731-0) MONO x10^3 (test code 0.90 10*3/uL 0.36-1.02 = 742-7) EOS x10^3 (test code = 0.06 10*3/uL 0.06-0.53 711-2) BASO x10^3 (test code 0.07 10*3/uL 0.01-0.09 = 704-7) Lab Interpretation Abnormal (test code = 33561-8) [facility] HospitalSEROTONIN RELEASE [id number] 14:13:16 Test Item Value Reference Range Interpretation Comments SCAN RESULT (test code = 2693402) UFH LOW DOSE 0.1 (2) See sca nned report. (PIO) (test code = 2593) See scanned reportU/S, RENAL, [id number] 17:23:00Reason for exam:->[facility]oneph[facility] 1960 Sex: MFINAL REPORT U/S, [...] post void residual urinary bladder volume Signed: Alphonse Dumontort Verified Date/Time: 06/23/2022 17:23:41 CBC W/PLT COUNT & AUTO [id number] 05:58:22 Test Item Value Reference Range Interpretation [...] (PIO) (test code = 2801) U/S, ABDOMINAL, [id number] 16:48:00Abdomen limited area? Add comment if clarification is needed.->Right upper quadrantReason for exam:->elevated Tbili - please evaluate [facility] : 1960 Sex: MFINAL REPORT Right [...] Jm Baeza MDReport Verified Date/Time: 6:48:01 SERUM [id number] 16:04:04 Test Item Value Reference Range Interpretation Comments IMMUNOGLOBULIN A (IGA) 146 mg/dL 63-484 (PIO) (test code = 639) IMMUNOGLOBULIN G (IGG) 704 mg/dL 540-1822 (BEAKER) (test code = 427) IMMUNOGLOBULIN M (IGM) 72 mg/dL 22-293 (BEAKER) (test code = 638) SERUM IT ID 6144(BEAKER) No monoclonal (test code = 3817) protein detected. [facility]-PATHOLOGIST-"[id number] Axel Lawler, " (BEAKER) (test code = M.D. 3805) Clinical Garment Finisher - SFOperator ID - ADMINPROTEIN ELECTROPHORESIS, SERUM WITH REFLEX TO [id number] 16:03:41 Test Item Value Reference Range Interpretation [...] Alpha-1 globulin (BEAKER) (test code = increased. 2616) Non-specific change. [id number] Axel Lawler, (BEAKER) (test code = M.D. 2616) PROTEIN TOTAL SERUM, 6.6 gm/dL 6.0-8.3 SPEP (BEAKER) (test code = 9857) Clinical Garment Finisher - SFOperator ID - ADMINOperator ID - ADMHEPARIN ANTIBODY 2022-06-22 12:12:51 Test Item Value Reference Range Interpretation Comments HEPARIN ANTIBODY Positive-See Serotonin Negative A (BEAKER) (test code = Release Assay for 646) Confirmation HEPARIN ANTIBODY OD 3.000 <0.400 H (BEAKER) (test code = 7223) 4T TOTAL SCORE 5 (BEAKER) (test code = 2661) [id number] 05:50:16 Test Item Value Reference Range Interpretation Comments HAPTOGLOBIN (BEAKER) (test code = 308 mg/dL 14-258 H 366) Franchise Field Consultant ID - ADMINOperator ID - ADMINVITAMIN [id number] 05:20:33 Test Item Value Reference Range Interpretation Comments VITAMIN B12 (BEAKER) (test code = 359 pg/mL 213-816 774) Franchise Field Consultant ID - [id number] 05:20:33 Test Item Value Reference Range Interpretation Comments FERRITIN (BEAKER) (test code = 415.83 ng/mL 5.00-275.00 H 361) Franchise Field Consultant ID - MARCOIRON, TIBC, % SAT. (WITHOUT FERRITIN)2022-06-22 04:59:45 Test Item Value Reference Range Interpretation Comments IRON (BEAKER) (test code = 547) 38.0 ug/dL 40.0-160.0 L TOTAL IRON BINDING CAPACITY 311 ug/dL 250-450 (BEAKER) (test code = 769) IRON % SATURATION (2) (BEAKER) 12 % 20-55 L (test code = 2590) Franchise Field Consultant ID - MARCORETICULOCYTE [id number] 04:53:40 Test Item Value Reference Range Interpretation Comments RETICULOCYTE COUNT PCT (BEAKER) (test 5.7 % 0.5-1.8 H code = 575) Franchise Field Consultant ID - [id number] W/PLT COUNT & AUTO [id number] 04:53:36 Test Item Value Reference Range Interpretation [...] (BEAKER) (test code = 2801) HEPATIC FUNCTION [id number] 04:48:30 Test Item Value Reference Range Interpretation [...] (test code = 19 U/L 6-55 347) Franchise Field Consultant ID - ADMINLACTATE DEHYDROGENASE (LDH)2022-06-22 04:48:30 Test Item Value Reference Range Interpretation Comments LACTATE DEHYDROGENASE (BEAKER) (test 271 U/L 125-220 H code = 635) Franchise Field Consultant ID - ADMINBASIC METABOLIC [id number] 04:48:29 Test Item Value Reference Range Interpretation [...] (test code = 697) EGFR (BEAKER) 84 Interpretati on of eGFR (test code = [...] not appl icable for dialysis patien ts Franchise Field Consultant ID - [id number] 04:48:29 Test Item Value Reference Range Interpretation Comments MAGNESIUM (BEAKER) (test code = 2.2 mg/dL 1.6-2.6 627) Franchise Field Consultant ID - ADMINCOMPREHENSIVE METABOLIC [id number] 13:27:13 Test Item Value Reference Range Interpretation [...] not appl icable for dialysis patien ts Franchise Field Consultant ID - JSCBC W/PLT COUNT & AUTO [id number] 13:14:04 Test Item Value Reference Range Interpretation [...] PERCENT (BEAKER) (test code = 2801) PROTHROMBIN TIME/[id number] 13:13:03 Test Item Value Reference Range Interpretation Comments PROTIME (BEAKER) (test code = 15.2 seconds 11.9-14.2 H 759) INR (BEAKER) (test code = 370) 1.28 <=5.90 RECOMMENDED COUMADIN/WARFARIN INR THERAPY RANGESSTANDARD DOSE: 2.0 - 3.0 Includes: PROPHYLAXIS for venous thrombosis, systemic embolization; TREATMENT for venous thrombosis and/or pulmonary embolus.HIGH RISK: Target INR is 2.5-3.5 for patients with mechanical heart valves.SARS-CoV2/RT-PCR ([facility]) 2022-06-21 13:03:14 Test Item Value Reference Interpretation Comments Range SARS-COV2/RT-PCR Negative Negative The SARS-Co V-2 (test code = target nucleic 71126-0) acids are not detected in thi s [...] revoked sooner. Fact Sheet for Healthcare Providers: https://www.byUs.com/Documents/Xp ert%20Xpress%20SAR S%20CoV-2/Fact%20S heets/070-4425%20S ARS-COV-2%20HEALTH CARE%20PROVIDERS%2 0FACT%20SHEET.pdf Fact Sheet for Healthcare Patients: https://www.byUs.com/Documents/Xp ert%20Xpress%20SAR S%20CoV-2/Fact%20S heets/302-3801%20S ARS-COV-2%20PATIEN T%20FACT%20SHEET.p df Lab Interpretation Normal (test code = 24445-6) [facility]2022-06-21 13:03:14 Test Item Value Reference Interpretation Comments Range SARS-COV2/RT-PCR Negative Negative The SARS-Co V-2 (test code = target nucleic 85915-0) acids are not detected in thi s [...] revoked sooner. Fact Sheet for Healthcare Providers: https://www.byUs.com/Documents/Xp ert%20Xpress%20SAR S%20CoV-2/Fact%20S heets/302-3802%20S ARS-COV-2%20HEALTH CARE%20PROVIDERS%2 0FACT%20SHEET.pdf Fact Sheet for Healthcare Patients: https://www.byUs.com/Documents/Xp ert%20Xpress%20SAR S%20CoV-2/Fact%20S heets/302-3801%20S ARS-COV-2%20PATIEN T%20FACT%20SHEET.p df Lab Interpretation Normal (test code = 01601-2) [facility])2022-06-21 13:03:14 Test Item Value Reference Range Interpretation Comments SARS-COV2/RT-PCR Negative Negative The SARS-Co V-2 target (test code = nucleic acids a re not 3937713) detected in thi s specimen. Negative result [...] revoked sooner. Fact Sheet for Healthcare Providers: https://www.[employer] m/Documents/Xpert%20Xpress%20SARS%20CoV-2/Fact%20Sheets/056-8039%15PFQI-TPA-1%20 HEALTHCARE%20PROVIDERS%20FACT%20SHEET.pdf Fact Sheet for Healthcare Patients: https://www.[employer]/Documents/Xpert%20Xp ress%20SARS%20CoV-2/Fact%20Sheets/163-9309%56PNHX-IGP-2%20PATIENT%20FACT%20SHEET .pdfSURGICAL PATHOLOGY [id number] 19:37:37 Test Item Value Reference Range Interpretation Comments Case Report (test code Surgical Pathology ? ? = 3715976078) ?Case: [id number] ? Authorizing Provider: ?Lawrence Peterson MD ?Collected: ? 06/03/2022 1042 ?Ordering Location: ? ? [facility] OR ? Received: ?06/03/2022 1154 ? Department ? Pathologist: ? Tatyana Monroe, ? MD PhD ? Specimen: ? ?OTHER, IVC FOREIGN BODY ? Final Diagnosis (test m8pjqDHiWPPkz1ugXTPclI code = 0753512141) FuZzEwMzNcZnRuYmpcdWMx IHtccnRmMVxlcGljMTAyMD IrXQ5qdHlkyAh9tHzvUOHa mhR9sCUjDEirz7whEQE5k4 ibnbfgPKYoFHtbMy6vhNLm xQqnCuTuZHUpAYz4xZ01DI HrbZ1umOYxOYh8YFPdbLPb ctUiYiQcZGYnaUZkmDA5HW CjQP9pokceRVzvAPxuPKAt gdC6FVKxfMZdR9RfUDLuFL 5irjaqVAX1CYofXBFgXWE5 HhIdLGOjr6Xtoak7KwZlhP FyZFxwbGFpblxmczIwXHBh ciBBLiBIRUFSVCwgUkVNT1 ZBTCBPRiBJTkZFUklPUiBW US5ORAHJJrFhMj8VHFtVRn OYQ0NBIgTkmMCmPBUbCRBe ER4RQJYDLHaYXJ0GOGtIJA ivGLWMXDJUYSMCMpXWG3OP NdWaK9aNOLUDXmIWXxqMNd SCFO9AHHOLSkHwKidIOGRX AKijJRPgURCvMBKtT6Jwl7 EoRLglsVcqWQDor74vs37x kJnav1NvGXhql6CxFEUpv6 YrsRJ0sG5uUD1jHXZqrcEy DADeGYHFIDFfH41HNUTXST 5kdLGvmRnnotTlHHiqf8Cv O8ZzEyFtJFqybxMzSRWsTg orwdexEEZgTLM8qeQsEHWh DSobQLRdXDcwLm3lgIVsqD leYtDsNROix0ujzbQDPGhp PyOhP954HIHaTRelm8idd9 BvBYLtoCQyq3P7YDMXjbqg eHc0z6hlEzIkRmU2dOWeNY xyP3kfflCnfZHxF2SdqGFz pNh1iNcoT75qm9T8VmmwE6 qhPDGkLEEiW8PaCU4kDBUf Txz7YPI3QLY3WYWcALEzG8 KhQS4yJBPztEEcBLw3t1dp pKhgBRAqNRN8k8ymFVudok W2KF1ivg0lkLh6t0wwvbIm JAMzOZKkzWLSHIOqH9KfcV hnHi0fiMj6hGdwYupsOLW1 Bng0TF8gio09nzp7qHwpZP ZamcqdBvQ4BAalGNZkqsgy NWd5ODpnOSFvvPE8LRLkoM MgU8DwGVNiJL6aete9YBO9 WSxoDUJeKiF5WOMbwPKoDP HgnQoeOXvkf524SAP3VlAd TM2zY1Hyr4I8dD5ifFFtFK OsiSGvUqYcODPpwt9tdVVb XBwqf2QvJCX5vmK8aTXmbV HeFOMjVE38Qmlsy6XyMvlg YZQ6XHChulCkv2Vfl9hkUa WmleWyC2doC9ReWQLeLZWj KEZgNkUlggBjw2Cvb8YiuM MkbIt1e9ggPWVfYOCcbEdx n5pgQPW3PPJuU7V7tGVby6 uvCJasXFOykWG4qlY0AFZt tGTsD3RcgM5mIPRySL8peb r4j7srNUI2OCirESGcBeC1 htI0KGStaYSdFCWkjEweMM kod317YZK0LqZuXOCtw0Wg I9HmiOwcM78fhNzgE35gYI ZqiFmcpV9mdKursJ5rUzYn ZnMyNFxxbFxwbGFpblxmMV xmczIwXGxhbmcxMDMzXGhp C4cjHyXxDBDbyGdgMNgtm6 NoXGYxXGNmMlxmczIwXHBh ylMVBSzdiqBegEXad99kJR xseSByZXZpZXdlZCBhbGwg c4AqK6phNB7rO6ItyUNbhi JpnePuTXjrPYXal9f7gTFd hYfao9PtoONjGZ67dzYsII PdRPC1XBPit1diKV68nilu WcDkdF01rlGifgSaSGFle7 urM3bnzETku2Ien3LswhFa RXclu2EaPH6jwRLtjghmbG C4MWQphVPevpDqfeP1zQpj ESLyvY2qsH1gnNjryY7fFl EzPqAbKDgiQV0dBTDbO9or xQWtCAYvLWHbN7niEnPulW 6pfJvrPxafydA6FHAmyv27 Final Diagnosis Comment n8hzaKWhNTGlbUOwPDNiNi (test code = owgzOsCPZmuDXuB0Oqymcx 9027028736) WGtaJT4lYD9jyKwxiXTuuY ZxNORuNsZso3lzh330tCUw e3ydLCCUovfeqVx7uZlfX1 9ws2D6YmloT4liYAZ6KTpg ynTqyoVrZZNfvXI0OMbubt TmTeC8WSoePRHmBxZ4OONh zSXpEWM4fEdfEPAnjaqmSb P5XBliUWQjmveeDBo7RHdc QUUnsTS6UHRsxUGsF6BxFE KrZL3okmf7KRJ2JMtySHUr XoN2IAUvrPObFIBlrPvzJN khf245PNS3FcMzPXMamhPm bCbbqJ0lDbVwSUmmBiFbR5 hjYnBhdDJccGFyIFRoZSBh Kp82LBOkqOVkbF8uceKfwJ M3FZRpXZZdWAC4TwfdU2Bu RCC0txMpzo0ofjSkiNKspS 7qgWcpfzSpueo1QKZ1gKIt HNTcuoTjhoYmi1D0OAOkc6 N8QLEmc6FzuZuqja3cE01f kOPoJOWqfPXtoZlpkm4sCY YgdGhlIHNwZWNpbWVuIGlz LK6zNRNxLWIaz4Qen3EsCK QvziZfi24fqcgdkIovFNDd VEChhwAoO2QlpTthLXOnd6 MiwCH3oT9fl9rxc3RhVXAf cn0= Clinical Information Acute deep vein (test code = thrombosis (DVT) of 0650777404) iliac vein of both lower extremities [I82.423] Gross Description (test e1wytTUgYFBovHRdQPAaLl code = 2756208467) jqodQfDASmkEPsW2Yhcyyi NTdlLI3bSC1gdOjbcANgvU QrDPIpIlDew1djm681fRXw w3suCRJDodjslDe0kMotH4 2ec5N5AmcxQ40kpHAdLZC5 WXYtEVWueVZpWQLzAUJ6OI LqmIAvM2kaYWPkCE4ovllg JIneIEgcQFFifVK0EOIejF IqA4UvTJAcECugRSKdtjk4 VaPmNp7jiSVnpCdxMRggYk mvrWnfz3EnjDRqCKywQZFa ANKqRJmwZUPrU8KOQKEsHh u4ONCnKIWlSoPANJT9YlH6 APYbBBAVRSMiSIgaEKD2Io kyIiBMUlIgODAwMDAwMDAw ILPhOJ7vPNefnBClRYnxFb ufUZkcU746TIobNLFzS0Je Q9WfRZvqGHW0VOKfCsUtIO SfRN4BJoNrOWN8XGMdQtYc YBf1UJi2CK1OCnGrBUQlPe A3UgZlKAYnFZs6HLrcKL2I RAA8FYZjAjc8ERemFYU6EU FsSPu9PPVfJKtpnvQqKLbp NwsbUSutV62llMIpEZynmO FpblxmczIwIFNQRUNJTUVO PHTzvZDgFXTvviThm6VgTK eozNhuZZRdTjWtaJqmsG9u UvPwLWXBwXXkvP8uvuDFIH odWXCkE4IidbUtNRFcLLYc IGxhYmVsbGVkIHdpdGggdG wyCMMerBvhxvNbY0U8vbFy CI5vMKFTKFUqxI6uXVPsBO XkBTEWVMMdhaPfF08jBr2l gWanBxApD3C7NAOxQESyp0 3gyIS8wqAwRgJcWC5fzOEx wFyxKF61cTEosNTfimvgRM IpINSzQ4FeVLCmuebgJVXy VA52YSbcFu1fGVnuBH68JD JmVUzrO7Hlp4VkkNJkw52r zVG3HS89AVxynIkjGX3qpT 7nSUNqy6PeqaIjCHYhDIFl QBYusXSnlu9yYTzlv8NiPF 8cOVdrLEowjNzfjR7omsYj gZEnFHZzULMji9MeOiLOcO Szd0JuV4jcNR0mhFHhAk2m SOcug6DrXWR4RY2dxvT8wA 7yPE0lzHxeZEufNKLuxVAn ZFxmczIyXHBhclxzYTMwXG HcuYJXt2LoGQHEgRdhAAVJ M6zguGHjJWpwIEKVNDhKI2 RSVJycWNFuY0KkQ1GmthI6 x2bqmZsbk3KzyEIiCK1onS FyfQ== Disclaimer (test code = j6efhLMsOHTxa8dqBKUacS 2570822131) FuZzEwMzNcZnRuYmpcdWMx NCvpouKmVRvou1QlD7PoSt AwMFxhbnNpXGRlZmxhbmcx VRIeHFQ6fnRbOVBdEKwhTK DkCSkkVd6lxLZqkFjiZzCr SVQti1sfojLLGAimKuScB7 87QLLsXZvxi5wta3LaQSAg cFPkk5P1JFRYijgdxVn3jK vjC27sj5T8MwuqP3uuVEUe FGGyS1FsYD6nDDMlJfh8IL I1BJQ0MARnIFApZ6EzFN4h KGFxfEGiLLq0e1iuyKpfMX QiUQY8h7wmCMptwrRcKM6z lq8ebCx6z1qrccCjIRSiGW KylPUAPLNcO9LouNwhCj3s tBu6sLtuRpwaBFX7Gmq8GP 4ijs71qnc9uCgqHWItjstk IoZ3RSuuQAWdxtftWKy8QP avVLDhpGU1ODUhyOMsT5Ol GDJiIR6fany7EYJ5MPjhHT ScIxU4UKWijNFfYNNpoLpx EAdag340AFS4UaYwKN6iK7 Syo7F8fD6pqPNnYOMkuFNe FgStEDFati3wqPFtXJypo7 YtEOU8ixV2uAIitJFoIGBi MC46Jjfvu9EpVtemh1EwE1 0wlJA2GBjgg8ibDU7jRpO5 xkXkIIxba5zrbT7sNpN7ZS xpBN4aEJ8qUBBknM1rrocg XHBnYnJkcmhlYWRccGdicm SpNh3zjAxiKQE9NXhfL1uh bX6kQnC7ULpbF7zahM8sKD f5IUagvCZ8PDZsiT2gKN8o tebiv0yyADkrWSinMCFsmm Z8mpP6FCDsbMCuI8WetA9e VHHwZK7ebwesi0kmQMD0HU xrWMPoKKP4PtYbWAZjy1Hn eie2JyMmu3RuwOTuMLkmD4 3tg171EGKfxiIoW1dzwIVb mgckzUUxtmajWVabvwT4EJ NvisRfg7ReTWFaBDM7VCke WZjoiTRmNTVexPgfm1wxB4 RscGFyXHBsYWluXGYxXGZz MjBcbGFuZzEwMzNcaGljaF hlSMlsOlDxNQZqGKhqD2pj IhVbP3OaJHKhEnKybBLiR8 ggVGhpcyByZXBvcnQgbWF5 EJdqW3c0HHNxzaBijDz2kk UuLpJuLCIhAVC1OYluuSJg HMGyk0UaiigpuSVnQz4zeO WqTEXvdC5zOSTwFWReVMjy PJ8xnLv7WJULwMQejCWdQo IXGOJaRL17onBdFMKQccvo f1Y3JHacMXJzd2OlfWUhR7 yus4SeFHGgq23jQG6zk6S0 a1hzJCY3NW8lf5UuIRTjpS ZrbHPqLKAdz3Rpvsbym9Rv UQTgtzSeb1HbYHDugxQemU NtFZFvkiPyuy7wjfWgUUSi LHXlJ8JkzuazcKfufgQeEU Ezyy8abuGoAIX4OPAFUXAf QOQwv9MmuT9rzZWAYGD6nT Hnhl8jksCWmRAcKPUgbv88 DKZhSM7xY5zpEPJzFUAmdk EebONry7PkZOYblOX8zXUy YG1FOjUXw86sLXPaSZXPhr UjXFHgkTvsyLD5jhH4lV3x IChGREEpLlx+IFRoZSBGRE PmMH7ofrJnt7UseiIvjCzf DIUfvASxl6ZquVKmo4HuvA acw4DgpFWbfYErIW3wHBZf clxwYXIgVVRNQiBMYWJvcm I7e3CpPYLyNOLnKGC7zQlq egf5DUAldX8mGGIkB0opxf ufSTipJLBga6KfaJ5yiWPQ uEDng7HxgZEzkOTRsVCcPH 6ojbGzZIvDNIpPQRH6aqNh NCBzo6BkRTqhX8piM65ylR bgnQo9dIH7NKN1iE5dPbf+ IFxwYXJccGFyIEFwcHJvcH NzNRRfzWpmiuGfF1NkieCx uU8efQAksbFjTM9mDP1zB0 O9aBQpBLMouvTvv3bnGYyv dmUgYmVlbiByZXZpZXdlZC Moe6VeJGxlWSV3DAqyarEe bmNsdWRpbmcgSCZFLCBTcG AsuUIfJJM7HAtswqZyxuTk GF5bbD9swClryO2xwKFasL I9vqrnIGGqHTJlrLsaUDNm LJ6tlWFbFQEjfiYIxRcltN DvpU5vR3QjNQQiBHFwyj6c MLYewX8qYBvgx3YkpuiuML KeZJRqTFPsiyTfst4fNKSf gOXLON4FSJzobMIvf9Uslp OcT7gZELC4CCIvFtTdEuce MEMumRIclWJjFIQozr78DP JvkF6hsSvlFVTkuJ1vnV0f hHnuzL5sTeYbClKgXZgbPM 4yFUVbB1iceWKkURKtCAHq V6grYgFwbE3tcQxtHNozFk UvTlFeNKlgQCV2vU== Embedded Images (test code = [id number]) [facility] METABOLIC PANEL (NA, K, CL, CO2, GLUCOSE, BUN, CREATININE, CA)2022-06-07 09:52:38 Test Item Value Reference Range Interpretation Comments NA (test code = 135 mmol/L 135-145 2874641599) K (test code = 4.0 mmol/L 3.5-5.0 4166780137) CL (test code = 104 mmol/L 98-108 1597775875) CO2 TOTAL (test code = 25 mmol/L 23-31 6111590480) AGAP (test code = 6 2-16 1849624394) BUN (test code = 16 mg/dL 7-23 9291429759) GLUCOSE (test code = 144 mg/dL 70-110 H 5926895918) CREATININE (test code = 1.10 mg/dL 0.60-1.25 1076613215) CALCIUM (test code = 8.4 mg/dL 8.6-10.6 L 9542903478) eGFR (test code = 68.5 mL/min/1.73m2 8833921700) DEWAYNE (test code = DEWAYNE) Association of [...] tests). Lab Interpretation Abnormal (test code = 31777-9) [facility] Test Item Value Reference Range Interpretation Comments MAGNESIUM (test code = 5207403196) 2.5 mg/dL 1.7-2.4 H Lab Interpretation (test code = Abnormal 78737-5) [facility] Test Item Value Reference Range Interpretation Comments PHOSPHORUS (test code = 5173758781) 3.9 mg/dL 2.5-5.0 Lab Interpretation (test code = Normal 84274-3) [id number] 12:15:07 Test Item Value Reference Range Interpretation Comments WBC (test code = 6.35 See_Comment [Automated 0030-2) message] The sy stem which generated this result transmitted reference range : 4.20 - 10.70 10*3/?L. The reference range was not used to interpret this result as normal/abnormal . RBC (test code = 2.65 See_Comment L [Automated 868-5) message] The sy stem which generated this [...] RDW-SD (test code = 51.5 fL 38.5-51.6 42028-4) RDW-CV (test code = 15.9 % 12.1-15.4 H 788-0) PLT (test code = 115 See_Comment L [Automated 777-3) message] The sy stem which generated this result transmitted reference range : 150 - 328 10*3/ ?L. The reference r mitra was not used to interpret this result as normal/abnormal . MPV (test code = 9.9 fL 9.8-13.0 61049-8) IPF % (test code = 2.9 % 1.2-10.7 Platelet count [id number]) measured by fluorescence method. NRBC/100 WBC (test 0.3 See_Comment [Automat ed code = 2543827095) message] The system which generated this result transmitted reference range : 0.0 - 10.0 /100 WBCs. The refer ence range was not u sed to interpret th is result as normal/abnormal . NRBC x10^3 (test code 0.02 See_Comment [Auto mated = 5630023963) message] The s ystem which generated this result transmitted reference range : 10*3/?L. The reference range was not used to interpret this result as normal/abnormal . GRAN MAT (NEUT) % 60.5 % (test code = 770-8) IMM GRAN % (test code 1.70 % = 3851344123) LYMPH % (test code = 24.7 % 736-9) MONO % (test code = 8.7 % 5905-5) EOS % (test code = 3.9 % 713-8) BASO % (test code = 0.5 % 706-2) GRAN MAT x10^3(ANC) 3.84 10*3/uL 1.99-6.95 (test code = 7600820670) IMM GRAN x10^3 (test 0.11 10*3/uL 0.00-0.06 H code = 5717340665) LYMPH x10^3 (test code 1.57 10*3/uL 1.09-3.23 = 731-0) MONO x10^3 (test code 0.55 10*3/uL 0.36-1.02 = 742-7) EOS x10^3 (test code = 0.25 10*3/uL 0.06-0.53 711-2) BASO x10^3 (test code 0.03 10*3/uL 0.01-0.09 = 704-7) Lab Interpretation Abnormal (test code = 42322-3) [facility] WITH [id number] 12:15:07 Test Item Value Reference Range Interpretation Comments WBC (test code = 6.35 See_Comment [Automated 6690-2) message] The sy stem which generated this result transmitted reference range : 4.20 - 10.70 10*3/?L. The reference range was not used to interpret this result as normal/abnormal . RBC (test code = 2.65 See_Comment L [Automated 279-8) message] The sy [...] RDW-SD (test code = 51.5 fL 38.5-51.6 60199-6) RDW-CV (test code = 15.9 % 12.1-15.4 H 788-0) PLT (test code = 115 See_Comment L [Automated 777-3) message] The sy stem which generated this result transmitted reference range : 150 - 328 10*3/ ?L. The reference r mitra was not used to interpret this result as normal/abnormal . MPV (test code = 9.9 fL 9.8-13.0 42500-2) IPF % (test code = 2.9 % 1.2-10.7 Platelet count 8626246908) measured by fluorescence method. NRBC/100 WBC (test 0.3 See_Comment [Automat ed code = 3286908161) message] The system which generated this result transmitted reference range : 0.0 - 10.0 /100 WBCs. The refer ence range was not u sed to interpret th is result as normal/abnormal . NRBC x10^3 (test code 0.02 See_Comment [Auto mated = 2735416284) message] The s ystem which generated this result transmitted reference range : 10*3/?L. The reference range was not used to interpret this result as normal/abnormal . GRAN MAT (NEUT) % 60.5 % (test code = 770-8) IMM GRAN % (test code 1.70 % = 1557836021) LYMPH % (test code = 24.7 % 736-9) MONO % (test code = 8.7 % 5905-5) EOS % (test code = 3.9 % 713-8) BASO % (test code = 0.5 % 706-2) GRAN MAT x10^3(ANC) 3.84 10*3/uL 1.99-6.95 (test code = 7508531710) IMM GRAN x10^3 (test 0.11 10*3/uL 0.00-0.06 H code = 6235450143) LYMPH x10^3 (test code 1.57 10*3/uL 1.09-3.23 = 731-0) MONO x10^3 (test code 0.55 10*3/uL 0.36-1.02 = 742-7) EOS x10^3 (test code = 0.25 10*3/uL 0.06-0.53 711-2) BASO x10^3 (test code 0.03 10*3/uL 0.01-0.09 = 704-7) Lab Interpretation Abnormal (test code = 39248-3) [facility] Test Item Value Reference Range Interpretation Comments MAGNESIUM (test code = 2489398709) 2.4 mg/dL 1.7-2.4 Lab Interpretation (test code = Normal 49130-2) [facility]:43:01 Test Item Value Reference Range Interpretation Comments PHOSPHORUS (test code = 4043959590) 4.1 mg/dL 2.5-5.0 Lab Interpretation (test code = Normal 88519-2) [facility] (NA, K, CL, CO2, GLUCOSE, BUN, CREATININE, CA)2022-06-05 11:43:01 Test Item Value Reference Range Interpretation Comments NA (test code = 137 mmol/L 135-145 9953383887) K (test code = 3.8 mmol/L 3.5-5.0 7720150502) CL (test code = 105 mmol/L 98-108 0694205775) CO2 TOTAL (test code = 28 mmol/L 23-31 4363926151) AGAP (test code = 4 2-16 2209259893) BUN (test code = 17 mg/dL 7-23 3769500450) GLUCOSE (test code = 86 mg/dL 70-110 1744905245) CREATININE (test code = 1.06 mg/dL 0.60-1.25 8435104802) CALCIUM (test code = 8.4 mg/dL 8.6-10.6 L 6614449791) eGFR (test code = 71.5 mL/min/1.73m2 2126595002) DEWAYNE (test code = DEWAYNE) Association of [...] tests). Lab Interpretation Abnormal (test code = 72260-7) [facility] 11:43:01 Test Item Value Reference Range Interpretation Comments MAGNESIUM (test code = 5819862099) 2.4 mg/dL 1.7-2.4 Lab Interpretation (test code = Normal 32334-5) [facility] 11:43:01 Test Item Value Reference Range Interpretation Comments PHOSPHORUS (test code = 4150060475) 4.1 mg/dL 2.5-5.0 Lab Interpretation (test code = Normal 21108-8) [facility] (NA, K, CL, CO2, GLUCOSE, BUN, CREATININE, CA)2022-06-05 11:43:01 Test Item Value Reference Range Interpretation Comments NA (test code = 137 mmol/L 135-145 4839638125) K (test code = 3.8 mmol/L 3.5-5.0 0559618424) CL (test code = 105 mmol/L 98-108 6819792230) CO2 TOTAL (test code = 28 mmol/L 23-31 4839024900) AGAP (test code = 4 2-16 7369460034) BUN (test code = 17 mg/dL 7-23 2116822171) GLUCOSE (test code = 86 mg/dL 70-110 5281249537) CREATININE (test code = 1.06 mg/dL 0.60-1.25 0693736432) CALCIUM (test code = 8.4 mg/dL 8.6-10.6 L 3381962390) eGFR (test code = 71.5 mL/min/1.73m2 6487999775) DEWAYNE (test code = DEWAYNE) Association of [...] tests). Lab Interpretation Abnormal (test code = 90007-8) [facility] ([facility]180[facility] (ALB,T.PRO,BILI T,BU/BC,ALT,AST,ALK PHOS)2022-06-04 08:25:57 Test Item Value Reference Range Interpretation Comments TOTAL BILI (test code = 7694855240) 0.7 mg/dL 0.1-1.1 BILI UNCON (test code = 2410856768) 0.3 mg/dL 0.1-1.1 BILI CONJ (test code = 4118169151) 0.0 mg/dL 0.0-0.3 T PROTEIN (test code = 8790177396) 6.4 g/dL 6.3-8.2 ALBUMIN (test code = 3865089580) 3.7 g/dL 3.5-5.0 ALK PHOS (test code = 8270804603) 105 U/L 34-122 ALTv (test code = 1742-6) 71 U/L 5-50 H AST(SGOT) (test code = 8777062748) 51 U/L 13-40 H Lab Interpretation (test code = Abnormal 57799-6) [facility] (99942[facility] (ALB,T.PRO,BILI T,BU/BC,ALT,AST,ALK PHOS)2022-06-04 08:25:57 Test Item Value Reference Range Interpretation Comments TOTAL BILI (test code = 0032521589) 0.7 mg/dL 0.1-1.1 BILI UNCON (test code = 5975987528) 0.3 mg/dL 0.1-1.1 BILI CONJ (test code = 2876085595) 0.0 mg/dL 0.0-0.3 T PROTEIN (test code = 7154066357) 6.4 g/dL 6.3-8.2 ALBUMIN (test code = 6020533058) 3.7 g/dL 3.5-5.0 ALK PHOS (test code = 1175852105) 105 U/L 34-122 ALTv (test code = 1742-6) 71 U/L 5-50 H AST(SGOT) (test code = 0016751291) 51 U/L 13-40 H Lab Interpretation (test code = Abnormal 20633-9) [facility] [id number] 06:14:08 Test Item Value Reference Range Interpretation Comments TROPONIN I (test code = 0.027 ng/mL <=0.034 1954727841) DEWAYNE (test code = DEWAYNE) Reference (Normal) [...] biotin. Lab Interpretation Normal (test code = 59028-9) [facility] [id number] 06:14:08 Test Item Value Reference Range Interpretation Comments TROPONIN I (test code = 0.027 ng/mL <=0.034 0767353978) DEWAYNE (test code = DEWAYNE) Reference (Normal) [...] biotin. Lab Interpretation Normal (test code = 95389-6) [facility] WITH [id number] 05:33:25 Test Item Value Reference Range Interpretation Comments WBC (test code = 9.78 See_Comment [Automated 6894-2) message] The sy stem which generated this result transmitted reference range : 4.20 - 10.70 10*3/?L. The reference range was not used to interpret this result as normal/abnormal . RBC (test code = 2.85 See_Comment L [Automated 258-8) message] The sy stem which generated this [...] RDW-SD (test code = 50.4 fL 38.5-51.6 66775-8) RDW-CV (test code = 15.9 % 12.1-15.4 H 788-0) PLT (test code = 121 See_Comment L [Automated 777-3) message] The sy stem which generated this result transmitted reference range : 150 - 328 10*3/ ?L. The reference r mitra was not used to interpret this result as normal/abnormal . MPV (test code = 8.7 fL 9.8-13.0 L 51382-6) IPF % (test code = 2.3 % 1.2-10.7 Platelet count 9308503204) measured by fluorescence method. NRBC/100 WBC (test 0.6 See_Comment [Automat ed code = 0619256586) message] The system which generated this result transmitted reference range : 0.0 - 10.0 /100 WBCs. The refer ence range was not u sed to interpret th is result as normal/abnormal . NRBC x10^3 (test code 0.06 See_Comment [Auto mated = 6949393813) message] The s ystem which generated this result transmitted reference range : 10*3/?L. The reference range was not used to interpret this result as normal/abnormal . GRAN MAT (NEUT) % 80.9 % (test code = 770-8) IMM GRAN % (test code 4.80 % = 4940259359) LYMPH % (test code = 8.6 % 736-9) MONO % (test code = 5.6 % 5905-5) EOS % (test code = 0.0 % 713-8) BASO % (test code = 0.1 % 706-2) GRAN MAT x10^3(ANC) 7.91 10*3/uL 1.99-6.95 H (test code = 6225255872) IMM GRAN x10^3 (test 0.47 10*3/uL 0.00-0.06 H code = 8435556901) LYMPH x10^3 (test code 0.84 10*3/uL 1.09-3.23 L = 731-0) MONO x10^3 (test code 0.55 10*3/uL 0.36-1.02 = 742-7) EOS x10^3 (test code = 0.06-0.53 L 711-2) BASO x10^3 (test code 0.01-0.09 = 704-7) Lab Interpretation Abnormal (test code = 02285-8) [facility] WITH [id number] 05:33:25 Test Item Value Reference Range Interpretation [...] RDW-SD (test code = 50.4 fL 38.5-51.6 65377-6) RDW-CV (test code = 15.9 % 12.1-15.4 H 788-0) PLT (test code = 121 See_Comment L [Automated 777-3) message] The sy stem which generated this result transmitted reference range : 150 - 328 10*3/ ?L. The reference r mitra was not used to interpret this result as normal/abnormal . MPV (test code = 8.7 fL 9.8-13.0 L 09275-9) IPF % (test code = 2.3 % 1.2-10.7 Platelet count 8547710476) measured by fluorescence method. NRBC/100 WBC (test 0.6 See_Comment [Automat ed code = 3529370567) message] The system which generated this result transmitted reference range : 0.0 - 10.0 /100 WBCs. The refer ence range was not u sed to interpret th is result as normal/abnormal . NRBC x10^3 (test code 0.06 See_Comment [Auto mated = 5622099940) message] The s ystem which generated this result transmitted reference range : 10*3/?L. The reference range was not used to interpret this result as normal/abnormal . GRAN MAT (NEUT) % 80.9 % (test code = 770-8) IMM GRAN % (test code 4.80 % = 8511013854) LYMPH % (test code = 8.6 % 736-9) MONO % (test code = 5.6 % 5905-5) EOS % (test code = 0.0 % 713-8) BASO % (test code = 0.1 % 706-2) GRAN MAT x10^3(ANC) 7.91 10*3/uL 1.99-6.95 H (test code = 7991852886) IMM GRAN x10^3 (test 0.47 10*3/uL 0.00-0.06 H code = 9191129479) LYMPH x10^3 (test code 0.84 10*3/uL 1.09-3.23 L = 731-0) MONO x10^3 (test code 0.55 10*3/uL 0.36-1.02 = 742-7) EOS x10^3 (test code = 0.06-0.53 L 711-2) BASO x10^3 (test code 0.01-0.09 = 704-7) Lab Interpretation Abnormal (test code = 95198-1) [facility] METABOLIC PANEL (NA, K, CL, CO2, GLUCOSE, BUN, CREATININE, CA)2022-06-04 05:32:04 Test Item Value Reference Range Interpretation Comments NA (test code = 136 mmol/L 135-145 3093885535) K (test code = 4.1 mmol/L 3.5-5.0 7691719245) CL (test code = 104 mmol/L 98-108 5563932979) CO2 TOTAL (test code = 25 mmol/L 23-31 2745151342) AGAP (test code = 7 2-16 7955782729) BUN (test code = 19 mg/dL 7-23 0911610487) GLUCOSE (test code = 166 mg/dL 70-110 H 4939024024) CREATININE (test code = 1.00 mg/dL 0.60-1.25 1502779867) CALCIUM (test code = 8.8 mg/dL 8.6-10.6 4054268404) eGFR (test code = 76.5 mL/min/1.73m2 4330259942) DEWAYNE (test code = DEWAYNE) Association of [...] tests). Lab Interpretation Abnormal (test code = 23934-4) [facility] METABOLIC PANEL (NA, K, CL, CO2, GLUCOSE, BUN, CREATININE, CA)2022-06-04 05:32:04 Test Item Value Reference Range Interpretation Comments NA (test code = 136 mmol/L 135-145 8668518577) K (test code = 4.1 mmol/L 3.5-5.0 2004672676) CL (test code = 104 mmol/L 98-108 7568218750) CO2 TOTAL (test code = 25 mmol/L 23-31 9722245446) AGAP (test code = 7 2-16 6667154642) BUN (test code = 19 mg/dL 7-23 6851675817) GLUCOSE (test code = 166 mg/dL 70-110 H 6921405123) CREATININE (test code = 1.00 mg/dL 0.60-1.25 8537499329) CALCIUM (test code = 8.8 mg/dL 8.6-10.6 0641592749) eGFR (test code = 76.5 mL/min/1.73m2 4942762856) DEWAYNE (test code = DEWAYNE) Association of [...] tests). Lab Interpretation Abnormal (test code = 54835-6) [facility] (for use with Heparin Drip)2022-06-04 05:24:43 Test Item Value Reference Range Interpretation Comments APTT Patient (test code 105 See_Comment [Au tomated message] = 3173-2) The system Aqu[employer] generated this result transmitted ref erence range: 26 - 36 Seconds. The reference range was not used to int erpret this result as normal/abnormal . Lab Interpretation (test Abnormal code = 87544-3) [facility] (for use with Heparin Drip)2022-06-04 05:24:43 Test Item Value Reference Range Interpretation Comments APTT Patient (test code 105 See_Comment [Au tomated message] = 3173-2) The system [employer] generated this result transmitted ref erence range: 26 - 36 Seconds. The reference range was not used to int erpret this result as normal/abnormal . Lab Interpretation (test Abnormal code = 00389-2) [facility]GLU[facility]CA2+2022-06-04 02:57:07 Test Item Value Reference Range Interpretation Comments PH (test code = 2) 7.31 7.35-7.45 L PCO2 (test code = 42 See_Comment [Automate d message] 9350873192) The system [employer] generated this result transmit elizabeth reference range : 35 - 45 mmHg. The reference range was not used to interpret this result as normal/abnormal . PO2 (test code = 144 See_Comment H [Automated message] 0648661129) The system [employer] generated this result transmit elizabeth reference range : 80 - 100 mmHg. The reference range was not used to interpret this result as normal/abnormal . HCO3 (test code = 21 See_Comment L [Automate d message] 4741214859) The system [employer] generated this result transmit elizabeth reference range : 22 - 26 mEq/L. The reference range was not used to interpret this result as normal/abnormal . BE (test code = -4.8 See_Comment L [Automated message] 8705882145) The system [employer] generated this result transmit elizabeth reference range : -3.0 - 3.0 mEq/ L. The reference r mitra was not used to interpret this result as normal/abnormal . THB (test code = 9.6 g/dL 13.5-18.0 L 4830404996) %O2HB (test code = 98.4 % 94.0-99.0 4721336097) %COHB ART (test code = 0.1 % 0.0-1.5 2649028263) %METHB ART (test code = 0.1 % 0.4-1.5 L 5801815942) VOL%O2 ART (test code = 13.6 % 15.0-23.0 L QUES 7227936422) NA (test code = 133 mmol/L 135-145 L 6903885622) K+ (test code = 4.6 mmol/L 3.5-5.0 7047847508) AC CA IONZ (test code = 4.40 mg/dL 4.50-5.30 L 9652295015) GLUCOSE (test code = 148 mg/dL 70-110 H 8542458359) Lab Interpretation Abnormal (test code = 94973-3) [facility]GLU[facility]CA2+2022-06-04 02:57:07 Test Item Value Reference Range Interpretation Comments PH (test code = 2) 7.31 7.35-7.45 L PCO2 (test code = 42 See_Comment [Automate d message] 3337369217) The system [employer] generated this result transmit elizabeth reference range : 35 - 45 mmHg. The reference range was not used to interpret this result as normal/abnormal . PO2 (test code = 144 See_Comment H [Automated message] 8836480105) The system [employer] generated this result transmit elizabeth reference range : 80 - 100 mmHg. The reference range was not used to interpret this result as normal/abnormal . HCO3 (test code = 21 See_Comment L [Automate d message] 3045555944) The system [employer] generated this result transmit elizabeth reference range : 22 - 26 mEq/L. The reference range was not used to interpret this result as normal/abnormal . BE (test code = -4.8 See_Comment L [Automated message] 9447220057) The system [employer] generated this result transmit elizabeth reference range : -3.0 - 3.0 mEq/ L. The reference r mitra was not used to interpret this result as normal/abnormal . THB (test code = 9.6 g/dL 13.5-18.0 L 4744858463) %O2HB (test code = 98.4 % 94.0-99.0 7466578434) %COHB ART (test code = 0.1 % 0.0-1.5 6899441036) %METHB ART (test code = 0.1 % 0.4-1.5 L 1351825466) VOL%O2 ART (test code = 13.6 % 15.0-23.0 L QUES 5648344460) NA (test code = 133 mmol/L 135-145 L 9297797555) K+ (test code = 4.6 mmol/L 3.5-5.0 7901762575) AC CA IONZ (test code = 4.40 mg/dL 4.50-5.30 L 5402992324) GLUCOSE (test code = 148 mg/dL 70-110 H 5708556177) Lab Interpretation Abnormal (test code = 06173-3) [facility]CA2+2022-06-04 02:55:52 Test Item Value Reference Range Interpretation Comments PH (test code = 2) 7.31 7.35-7.45 L PCO2 (test code = 38 See_Comment [Automate d message] 1115733448) The system [employer] generated this result transmit elizabeth reference range : 35 - 45 mmHg. The reference range was not used to interpret this result as normal/abnormal . PO2 (test code = 180 See_Comment H [Automated message] 3774727554) The system [employer] generated this result transmit elizabeth reference range : 80 - 100 mmHg. The reference range was not used to interpret this result as normal/abnormal . HCO3 (test code = 19 See_Comment L [Automate d message] 2239755320) The system [employer] generated this result transmit elizabeth reference range : 22 - 26 mEq/L. The reference range was not used to interpret this result as normal/abnormal . BE (test code = -7.2 See_Comment L [Automated message] 0332416264) The system [employer] generated this result transmit elizabeth reference range : -3.0 - 3.0 mEq/ L. The reference r mitra was not used to interpret this result as normal/abnormal . THB (test code = 8.4 g/dL 13.5-18.0 L 6844932572) %O2HB (test code = 98.1 % 94.0-99.0 8324956094) %COHB ART (test code = 0.4 % 0.0-1.5 2781899540) %METHB ART (test code = 0.3 % 0.4-1.5 L 6016710924) VOL%O2 ART (test code = 12.0 % 15.0-23.0 L QUES 4375468104) NA (test code = 135 mmol/L 135-145 7764750227) K+ (test code = 4.1 mmol/L 3.5-5.0 3253528846) AC CA IONZ (test code = 4.90 mg/dL 4.50-5.30 7073217697) GLUCOSE (test code = 128 mg/dL 70-110 H 2688056605) Lab Interpretation Abnormal (test code = 98625-2) [facility]GLU[facility]CA2+2022-06-04 02:55:52 Test Item Value Reference Range Interpretation Comments PH (test code = 2) 7.31 7.35-7.45 L PCO2 (test code = 38 See_Comment [Automate d message] 0890149658) The system Aqu[employer] generated this result transmit elizabeth reference range : 35 - 45 mmHg. The reference range was not used to interpret this result as normal/abnormal . PO2 (test code = 180 See_Comment H [Automated message] 6453286267) The system [employer] generated this result transmit elizabeth reference range : 80 - 100 mmHg. The reference range was not used to interpret this result as normal/abnormal . HCO3 (test code = 19 See_Comment L [Automate d message] 1785057517) The system [employer] generated this result transmit elizabeth reference range : 22 - 26 mEq/L. The reference range was not used to interpret this result as normal/abnormal . BE (test code = -7.2 See_Comment L [Automated message] 9093607605) The system Aqu[employer] generated this result transmit elizabeth reference range : -3.0 - 3.0 mEq/ L. The reference r mitra was not used to interpret this result as normal/abnormal . THB (test code = 8.4 g/dL 13.5-18.0 L 2201638267) %O2HB (test code = 98.1 % 94.0-99.0 1215831156) %COHB ART (test code = 0.4 % 0.0-1.5 2809264468) %METHB ART (test code = 0.3 % 0.4-1.5 L 8404665721) VOL%O2 ART (test code = 12.0 % 15.0-23.0 L QUES 6604173893) NA (test code = 135 mmol/L 135-145 8776586032) K+ (test code = 4.1 mmol/L 3.5-5.0 2355001919) AC CA IONZ (test code = 4.90 mg/dL 4.50-5.30 9333562980) GLUCOSE (test code = 128 mg/dL 70-110 H 5105473877) Lab Interpretation Abnormal (test code = 13900-6) [facility] [id number] 13:22:00 Test Item Value Reference Range Interpretation Comments ABO & RH (test code = 20) AB POSITIVE IAT (test code = 1185) Negative [facility] [id number] 13:22:00 Test Item Value Reference Range Interpretation Comments ABO & RH (test code = 20) AB POSITIVE IAT (test code = 1185) Negative [facility] WITH [id number] 11:35:29 Test Item Value Reference Range Interpretation Comments WBC (test code = 11.02 See_Comment H [Automated 7070-2) message] The sy stem which generated this [...] RDW-SD (test code = 50.8 fL 38.5-51.6 65455-5) RDW-CV (test code = 15.9 % 12.1-15.4 H 788-0) PLT (test code = 265 See_Comment [Automated 777-3) message] The sy stem which generated this result transmitted reference range : 150 - 328 10*3/ ?L. The reference r mitra was not used to interpret this result as normal/abnormal . MPV (test code = 9.0 fL 9.8-13.0 L 68325-9) NRBC/100 WBC (test 0.5 See_Comment [Automat ed code = 0555047948) message] The system which generated this result transmitted reference range : 0.0 - 10.0 /100 WBCs. The refer ence range was not u sed to interpret th is result as normal/abnormal . NRBC x10^3 (test code 0.06 See_Comment [Auto mated = 7238174766) message] The s ystem which generated this result transmitted reference range : 10*3/?L. The reference range was not used to interpret this result as normal/abnormal . GRAN MAT (NEUT) % 67.4 % (test code = 770-8) IMM GRAN % (test code 5.90 % = 3044483031) LYMPH % (test code = 13.6 % 736-9) MONO % (test code = 8.5 % 5905-5) EOS % (test code = 4.1 % 713-8) BASO % (test code = 0.5 % 706-2) GRAN MAT x10^3(ANC) 7.42 10*3/uL 1.99-6.95 H (test code = 2149589262) IMM GRAN x10^3 (test 0.65 10*3/uL 0.00-0.06 H code = 5664595682) LYMPH x10^3 (test code 1.50 10*3/uL 1.09-3.23 = 731-0) MONO x10^3 (test code 0.94 10*3/uL 0.36-1.02 = 742-7) EOS x10^3 (test code = 0.45 10*3/uL 0.06-0.53 711-2) BASO x10^3 (test code 0.06 10*3/uL 0.01-0.09 = 704-7) Lab Interpretation Abnormal (test code = 17736-6) [facility] WITH [id number] 11:35:29 Test Item Value Reference Range Interpretation [...] RDW-SD (test code = 50.8 fL 38.5-51.6 78507-4) RDW-CV (test code = 15.9 % 12.1-15.4 H 788-0) PLT (test code = 265 See_Comment [Automated 777-3) message] The sy stem which generated this result transmitted reference range : 150 - 328 10*3/ ?L. The reference r mitra was not used to interpret this result as normal/abnormal . MPV (test code = 9.0 fL 9.8-13.0 L 78465-8) NRBC/100 WBC (test 0.5 See_Comment [Automat ed code = 7007997494) message] The system which generated this result transmitted reference range : 0.0 - 10.0 /100 WBCs. The refer ence range was not u sed to interpret th is result as normal/abnormal . NRBC x10^3 (test code 0.06 See_Comment [Auto mated = 3367064783) message] The s ystem which generated this result transmitted reference range : 10*3/?L. The reference range was not used to interpret this result as normal/abnormal . GRAN MAT (NEUT) % 67.4 % (test code = 770-8) IMM GRAN % (test code 5.90 % = 9699018770) LYMPH % (test code = 13.6 % 736-9) MONO % (test code = 8.5 % 5905-5) EOS % (test code = 4.1 % 713-8) BASO % (test code = 0.5 % 706-2) GRAN MAT x10^3(ANC) 7.42 10*3/uL 1.99-6.95 H (test code = 0520316101) IMM GRAN x10^3 (test 0.65 10*3/uL 0.00-0.06 H code = 8725980088) LYMPH x10^3 (test code 1.50 10*3/uL 1.09-3.23 = 731-0) MONO x10^3 (test code 0.94 10*3/uL 0.36-1.02 = 742-7) EOS x10^3 (test code = 0.45 10*3/uL 0.06-0.53 711-2) BASO x10^3 (test code 0.06 10*3/uL 0.01-0.09 = 704-7) Lab Interpretation Abnormal (test code = 62367-7) [facility] Test Item Value Reference Range Interpretation Comments MAGNESIUM (test code = 7362158447) 2.4 mg/dL 1.7-2.4 Lab Interpretation (test code = Normal 76645-0) [facility] Test Item Value Reference Range Interpretation Comments PHOSPHORUS (test code = 9301539563) 4.8 mg/dL 2.5-5.0 Lab Interpretation (test code = Normal 67403-8) [facility] (NA, K, CL, CO2, GLUCOSE, BUN, CREATININE, CA)2022-06-03 11:30:46 Test Item Value Reference Range Interpretation Comments NA (test code = 136 mmol/L 135-145 6164498203) K (test code = 4.2 mmol/L 3.5-5.0 8790766448) CL (test code = 104 mmol/L 98-108 1252147713) CO2 TOTAL (test code 26 mmol/L 23-31 = 0091772451) AGAP (test code = 6 2-16 0418454367) BUN (test code = 18 mg/dL 7-23 3482702113) GLUCOSE (test code = 103 mg/dL 70-110 4200133972) CREATININE (test code 1.08 mg/dL 0.60-1.25 = 6459070772) CALCIUM (test code = 8.7 mg/dL 8.6-10.6 2021378254) eGFR (test code = 70.0 mL/min/1.73m2 5144854061) DEWAYNE (test code = DEWAYNE) Association of [...] or urine or abnormalities in imaging tests). [facility] Test Item Value Reference Range Interpretation Comments MAGNESIUM (test code = 1755345339) 2.4 mg/dL 1.7-2.4 Lab Interpretation (test code = Normal 80275-6) [facility] Test Item Value Reference Range Interpretation Comments PHOSPHORUS (test code = 5363397746) 4.8 mg/dL 2.5-5.0 Lab Interpretation (test code = Normal 12117-0) [facility] (NA, K, CL, CO2, GLUCOSE, BUN, CREATININE, CA)2022-06-03 11:30:46 Test Item Value Reference Range Interpretation Comments NA (test code = 136 mmol/L 135-145 9423410340) K (test code = 4.2 mmol/L 3.5-5.0 1867441799) CL (test code = 104 mmol/L 98-108 1145120343) CO2 TOTAL (test code 26 mmol/L 23-31 = 6441814004) AGAP (test code = 6 2-16 6633484325) BUN (test code = 18 mg/dL 7-23 7739572060) GLUCOSE (test code = 103 mg/dL 70-110 5007070030) CREATININE (test code 1.08 mg/dL 0.60-1.25 = 0096757187) CALCIUM (test code = 8.7 mg/dL 8.6-10.6 7783359658) eGFR (test code = 70.0 mL/min/1.73m2 9620740730) DEWAYNE (test code = DEWAYNE) Association of [...] or urine or abnormalities in imaging tests). [facility] (for use with Heparin Drip)2022-06-03 11:15:05 Test Item Value Reference Range Interpretation Comments APTT Patient (test code 52 See_Comment H [Au tomated message] = 3173-2) The system [employer] generated this result transmitted ref erence range: 26 - 36 Seconds. The reference range was not used to int erpret this result as normal/abnormal . Lab Interpretation (test Abnormal code = 49487-5) [facility] (for use with Heparin Drip)2022-06-03 11:15:05 Test Item Value Reference Range Interpretation Comments APTT Patient (test code 52 See_Comment H [Au tomated message] = 3173-2) The system [employer] generated this result transmitted ref erence range: 26 - 36 Seconds. The reference range was not used to int erpret this result as normal/abnormal . Lab Interpretation (test Abnormal code = 18771-7) [facility] METABOLIC PANEL (NA, K, CL, CO2, GLUCOSE, BUN, CREATININE, CA)2022-06-02 13:56:04 Test Item Value Reference Range Interpretation Comments NA (test code = 137 mmol/L 135-145 3690635856) K (test code = 4.4 mmol/L 3.5-5.0 6755996631) CL (test code = 105 mmol/L 98-108 9893074542) CO2 TOTAL (test code 27 mmol/L 23-31 = 4030933828) AGAP (test code = 5 2-16 3546808699) BUN (test code = 19 mg/dL 7-23 8023537947) GLUCOSE (test code = 92 mg/dL 70-110 3854673405) CREATININE (test code 0.96 mg/dL 0.60-1.25 = 8454071497) CALCIUM (test code = 8.7 mg/dL 8.6-10.6 4840767190) eGFR (test code = 80.2 mL/min/1.73m2 4595209142) DEWAYNE (test code = DEWAYNE) Association of [...] or urine or abnormalities in imaging tests). [facility] METABOLIC PANEL (NA, K, CL, CO2, GLUCOSE, BUN, CREATININE, CA)2022-06-02 13:56:04 Test Item Value Reference Range Interpretation Comments NA (test code = 137 mmol/L 135-145 2256135440) K (test code = 4.4 mmol/L 3.5-5.0 4122638678) CL (test code = 105 mmol/L 98-108 0712035371) CO2 TOTAL (test code 27 mmol/L 23-31 = 6016355344) AGAP (test code = 5 2-16 7687240468) BUN (test code = 19 mg/dL 7-23 6691053395) GLUCOSE (test code = 92 mg/dL 70-110 6552245500) CREATININE (test code 0.96 mg/dL 0.60-1.25 = 9425209435) CALCIUM (test code = 8.7 mg/dL 8.6-10.6 3262344042) eGFR (test code = 80.2 mL/min/1.73m2 4718119904) DEWAYNE (test code = DEWAYNE) Association of [...] or urine or abnormalities in imaging tests). [facility] WITH [id number] 11:30:12 Test Item Value Reference Range Interpretation [...] RDW-SD (test code = 50.1 fL 38.5-51.6 68651-3) RDW-CV (test code = 15.8 % 12.1-15.4 H 788-0) PLT (test code = 239 See_Comment [Automated 777-3) message] The sy stem which generated this result transmitted reference range : 150 - 328 10*3/ ?L. The reference r mitra was not used to interpret this result as normal/abnormal . MPV (test code = 9.1 fL 9.8-13.0 L 99250-1) NRBC/100 WBC (test 0.8 See_Comment [Automat ed code = 8576929374) message] The system which generated this result transmitted reference range : 0.0 - 10.0 /100 WBCs. The refer ence range was not u sed to interpret th is result as normal/abnormal . NRBC x10^3 (test code 0.07 See_Comment [Auto mated = 1463709348) message] The s ystem which generated this result transmitted reference range : 10*3/?L. The reference range was not used to interpret this result as normal/abnormal . GRAN MAT (NEUT) % 56.4 % (test code = 770-8) IMM GRAN % (test code 6.70 % = 5879227652) LYMPH % (test code = 23.9 % 736-9) MONO % (test code = 7.3 % 5905-5) EOS % (test code = 4.9 % 713-8) BASO % (test code = 0.8 % 706-2) GRAN MAT x10^3(ANC) 4.93 10*3/uL 1.99-6.95 (test code = 1457905921) IMM GRAN x10^3 (test 0.59 10*3/uL 0.00-0.06 H code = 1447111751) LYMPH x10^3 (test code 2.09 10*3/uL 1.09-3.23 = 731-0) MONO x10^3 (test code 0.64 10*3/uL 0.36-1.02 = 742-7) EOS x10^3 (test code = 0.43 10*3/uL 0.06-0.53 711-2) BASO x10^3 (test code 0.07 10*3/uL 0.01-0.09 = 704-7) Lab Interpretation Abnormal (test code = 18157-3) [facility] WITH [id number] 11:30:12 Test Item Value Reference Range Interpretation [...] RDW-SD (test code = 50.1 fL 38.5-51.6 54981-7) RDW-CV (test code = 15.8 % 12.1-15.4 H 788-0) PLT (test code = 239 See_Comment [Automated 777-3) message] The sy stem which generated this result transmitted reference range : 150 - 328 10*3/ ?L. The reference r mitra was not used to interpret this result as normal/abnormal . MPV (test code = 9.1 fL 9.8-13.0 L 91040-7) NRBC/100 WBC (test 0.8 See_Comment [Automat ed code = 7908558431) message] The system which generated this result transmitted reference range : 0.0 - 10.0 /100 WBCs. The refer ence range was not u sed to interpret th is result as normal/abnormal . NRBC x10^3 (test code 0.07 See_Comment [Auto mated = 7158486409) message] The s ystem which generated this result transmitted reference range : 10*3/?L. The reference range was not used to interpret this result as normal/abnormal . GRAN MAT (NEUT) % 56.4 % (test code = 770-8) IMM GRAN % (test code 6.70 % = 0151747335) LYMPH % (test code = 23.9 % 736-9) MONO % (test code = 7.3 % 5905-5) EOS % (test code = 4.9 % 713-8) BASO % (test code = 0.8 % 706-2) GRAN MAT x10^3(ANC) 4.93 10*3/uL 1.99-6.95 (test code = 1178884819) IMM GRAN x10^3 (test 0.59 10*3/uL 0.00-0.06 H code = 4045506039) LYMPH x10^3 (test code 2.09 10*3/uL 1.09-3.23 = 731-0) MONO x10^3 (test code 0.64 10*3/uL 0.36-1.02 = 742-7) EOS x10^3 (test code = 0.43 10*3/uL 0.06-0.53 711-2) BASO x10^3 (test code 0.07 10*3/uL 0.01-0.09 = 704-7) Lab Interpretation Abnormal (test code = 21010-9) [facility] Test Item Value Reference Range Interpretation Comments MAGNESIUM (test code = 2976147635) 2.3 mg/dL 1.7-2.4 Lab Interpretation (test code = Normal 23703-7) [facility] 11:16:48 Test Item Value Reference Range Interpretation Comments PHOSPHORUS (test code = 2631618112) 4.8 mg/dL 2.5-5.0 Lab Interpretation (test code = Normal 53816-2) [facility]:16[facility]48 Test Item Value Reference Range Interpretation Comments MAGNESIUM (test code = 6854628365) 2.3 mg/dL 1.7-2.4 Lab Interpretation (test code = Normal 11227-9) [facility] 11:16:48 Test Item Value Reference Range Interpretation Comments PHOSPHORUS (test code = 0315305409) 4.8 mg/dL 2.5-5.0 Lab Interpretation (test code = Normal 93922-1) [facility] WITH [id number] 11:58:20 Test Item Value Reference Range Interpretation [...] RDW-SD (test code = 48.3 fL 38.5-51.6 53853-8) RDW-CV (test code = 15.2 % 12.1-15.4 788-0) PLT (test code = 181 See_Comment [Automated 777-3) message] The sy stem which generated this result transmitted reference range : 150 - 328 10*3/ ?L. The reference r mitra was not used to interpret this result as normal/abnormal . MPV (test code = 9.4 fL 9.8-13.0 L 40413-5) NRBC/100 WBC (test 0.3 See_Comment [Automat ed code = 8308365904) message] The system which generated this result transmitted reference range : 0.0 - 10.0 /100 WBCs. The refer ence range was not u sed to interpret th is result as normal/abnormal . NRBC x10^3 (test code 0.03 See_Comment [Auto mated = 4266056760) message] The s ystem which generated this result transmitted reference range : 10*3/?L. The reference range was not used to interpret this result as normal/abnormal . GRAN MAT (NEUT) % 59.7 % (test code = 770-8) IMM GRAN % (test code 5.80 % = 3939488922) LYMPH % (test code = 21.3 % 736-9) MONO % (test code = 8.7 % 5905-5) EOS % (test code = 4.1 % 713-8) BASO % (test code = 0.4 % 706-2) GRAN MAT x10^3(ANC) 5.49 10*3/uL 1.99-6.95 (test code = 5348512915) IMM GRAN x10^3 (test 0.53 10*3/uL 0.00-0.06 H code = 6952587884) LYMPH x10^3 (test code 1.96 10*3/uL 1.09-3.23 = 731-0) MONO x10^3 (test code 0.80 10*3/uL 0.36-1.02 = 742-7) EOS x10^3 (test code = 0.38 10*3/uL 0.06-0.53 711-2) BASO x10^3 (test code 0.04 10*3/uL 0.01-0.09 = 704-7) Lab Interpretation Abnormal (test code = 25610-7) [facility] WITH [id number] 11:58:20 Test Item Value Reference Range Interpretation Comments WBC (test code = 9.20 See_Comment [Automated 5490-2) message] The sy stem which generated this result transmitted reference range : 4.20 - 10.70 10*3/?L. The reference range was not used to interpret this result as normal/abnormal . RBC (test code = 3.18 See_Comment L [Automated 429-8) message] The sy stem which generated this [...] RDW-SD (test code = 48.3 fL 38.5-51.6 34749-0) RDW-CV (test code = 15.2 % 12.1-15.4 788-0) PLT (test code = 181 See_Comment [Automated 777-3) message] The sy stem which generated this result transmitted reference range : 150 - 328 10*3/ ?L. The reference r mitra was not used to interpret this result as normal/abnormal . MPV (test code = 9.4 fL 9.8-13.0 L 26828-0) NRBC/100 WBC (test 0.3 See_Comment [Automat ed code = 9250085188) message] The system which generated this result transmitted reference range : 0.0 - 10.0 /100 WBCs. The refer ence range was not u sed to interpret th is result as normal/abnormal . NRBC x10^3 (test code 0.03 See_Comment [Auto mated = 3586484668) message] The s ystem which generated this result transmitted reference range : 10*3/?L. The reference range was not used to interpret this result as normal/abnormal . GRAN MAT (NEUT) % 59.7 % (test code = 770-8) IMM GRAN % (test code 5.80 % = 3390746974) LYMPH % (test code = 21.3 % 736-9) MONO % (test code = 8.7 % 5905-5) EOS % (test code = 4.1 % 713-8) BASO % (test code = 0.4 % 706-2) GRAN MAT x10^3(ANC) 5.49 10*3/uL 1.99-6.95 (test code = 4551911556) IMM GRAN x10^3 (test 0.53 10*3/uL 0.00-0.06 H code = 0935249253) LYMPH x10^3 (test code 1.96 10*3/uL 1.09-3.23 = 731-0) MONO x10^3 (test code 0.80 10*3/uL 0.36-1.02 = 742-7) EOS x10^3 (test code = 0.38 10*3/uL 0.06-0.53 711-2) BASO x10^3 (test code 0.04 10*3/uL 0.01-0.09 = 704-7) Lab Interpretation Abnormal (test code = 45107-8) [facility] 11:41:55 Test Item Value Reference Range Interpretation Comments MAGNESIUM (test code = 6673125535) 2.3 mg/dL 1.7-2.4 Lab Interpretation (test code = Normal 80323-4) [facility] 11:41:55 Test Item Value Reference Range Interpretation Comments PHOSPHORUS (test code = 0084236138) 3.4 mg/dL 2.5-5.0 Lab Interpretation (test code = Normal 41609-2) [facility] (NA, K, CL, CO2, GLUCOSE, BUN, CREATININE, CA)2022-06-01 11:41:55 Test Item Value Reference Range Interpretation Comments NA (test code = 137 mmol/L 135-145 9018858764) K (test code = 4.1 mmol/L 3.5-5.0 8041725049) CL (test code = 105 mmol/L 98-108 8882502913) CO2 TOTAL (test code = 27 mmol/L 23-31 7783927023) AGAP (test code = 5 2-16 9301898609) BUN (test code = 17 mg/dL 7-23 1955462980) GLUCOSE (test code = 135 mg/dL 70-110 H 0654772032) CREATININE (test code = 0.84 mg/dL 0.60-1.25 8440697222) CALCIUM (test code = 8.4 mg/dL 8.6-10.6 L 5205505201) eGFR (test code = 93.5 mL/min/1.73m2 2371270594) DEWAYNE (test code = DEWAYNE) Association of [...] tests). Lab Interpretation Abnormal (test code = 55745-3) [facility] 11:41:55 Test Item Value Reference Range Interpretation Comments MAGNESIUM (test code = 1120609051) 2.3 mg/dL 1.7-2.4 Lab Interpretation (test code = Normal 02009-7) [facility] 11:41:55 Test Item Value Reference Range Interpretation Comments PHOSPHORUS (test code = 8548762525) 3.4 mg/dL 2.5-5.0 Lab Interpretation (test code = Normal 62499-0) [facility] (NA, K, CL, CO2, GLUCOSE, BUN, CREATININE, CA)2022-06-01 11:41:55 Test Item Value Reference Range Interpretation Comments NA (test code = 137 mmol/L 135-145 8477864213) K (test code = 4.1 mmol/L 3.5-5.0 4171091193) CL (test code = 105 mmol/L 98-108 7991398638) CO2 TOTAL (test code = 27 mmol/L 23-31 7165960360) AGAP (test code = 5 2-16 3028248917) BUN (test code = 17 mg/dL 7-23 2888441039) GLUCOSE (test code = 135 mg/dL 70-110 H 6571368750) CREATININE (test code = 0.84 mg/dL 0.60-1.25 6813942387) CALCIUM (test code = 8.4 mg/dL 8.6-10.6 L 6149340894) eGFR (test code = 93.5 mL/min/1.73m2 0912588476) DEWAYNE (test code = DEWAYNE) Association of [...] tests). Lab Interpretation Abnormal (test code = 27057-6) [facility] WITH [id number] 12:02:32 Test Item Value Reference Range Interpretation Comments WBC (test code = 9.82 See_Comment [Automated 9590-2) message] The sy stem which generated this [...] RDW-SD (test code = 46.6 fL 38.5-51.6 14857-1) RDW-CV (test code = 14.9 % 12.1-15.4 788-0) PLT (test code = 154 See_Comment [Automated 777-3) message] The sy stem which generated this result transmitted reference range : 150 - 328 10*3/ ?L. The reference r mitra was not used to interpret this result as normal/abnormal . MPV (test code = 9.5 fL 9.8-13.0 L 06068-3) NRBC/100 WBC (test 0.2 See_Comment [Automat ed code = 9766578352) message] The system which generated this result transmitted reference range : 0.0 - 10.0 /100 WBCs. The refer ence range was not u sed to interpret th is result as normal/abnormal . NRBC x10^3 (test code 0.02 See_Comment [Auto mated = 6707822107) message] The s ystem which generated this result transmitted reference range : 10*3/?L. The reference range was not used to interpret this result as normal/abnormal . GRAN MAT (NEUT) % 80.7 % (test code = 770-8) IMM GRAN % (test code 4.50 % = 2392361084) LYMPH % (test code = 6.5 % 736-9) MONO % (test code = 7.3 % 5905-5) EOS % (test code = 0.6 % 713-8) BASO % (test code = 0.4 % 706-2) GRAN MAT x10^3(ANC) 7.92 10*3/uL 1.99-6.95 H (test code = 9380152045) IMM GRAN x10^3 (test 0.44 10*3/uL 0.00-0.06 H code = 0332290173) LYMPH x10^3 (test code 0.64 10*3/uL 1.09-3.23 L = 731-0) MONO x10^3 (test code 0.72 10*3/uL 0.36-1.02 = 742-7) EOS x10^3 (test code = 0.06 10*3/uL 0.06-0.53 711-2) BASO x10^3 (test code 0.04 10*3/uL 0.01-0.09 = 704-7) MEAGHAN CELLS (test code 2+ See_Comment A [Auto mated = 8508-9) message] The sy stem which generated this result transmitted reference range : (none). The reference range was not used to interpret this result as normal/abnormal . REACT LYMPHS (test Rare code = 3951599663) Lab Interpretation Abnormal (test code = 88177-9) [facility] WITH [id number] 12:02:32 Test Item Value Reference Range Interpretation Comments WBC (test code = 9.82 See_Comment [Automated 5090-2) message] The sy stem which generated this result transmitted reference range : 4.20 - 10.70 10*3/?L. The reference range was not used to interpret this result as normal/abnormal . RBC (test code = 3.82 See_Comment L [Automated 150-8) message] The sy stem which generated this [...] RDW-SD (test code = 46.6 fL 38.5-51.6 75881-2) RDW-CV (test code = 14.9 % 12.1-15.4 788-0) PLT (test code = 154 See_Comment [Automated 777-3) message] The sy stem which generated this result transmitted reference range : 150 - 328 10*3/ ?L. The reference r mitra was not used to interpret this result as normal/abnormal . MPV (test code = 9.5 fL 9.8-13.0 L 74675-1) NRBC/100 WBC (test 0.2 See_Comment [Automat ed code = 7271385203) message] The system which generated this result transmitted reference range : 0.0 - 10.0 /100 WBCs. The refer ence range was not u sed to interpret th is result as normal/abnormal . NRBC x10^3 (test code 0.02 See_Comment [Auto mated = 9891729046) message] The s ystem which generated this result transmitted reference range : 10*3/?L. The reference range was not used to interpret this result as normal/abnormal . GRAN MAT (NEUT) % 80.7 % (test code = 770-8) IMM GRAN % (test code 4.50 % = 9119553975) LYMPH % (test code = 6.5 % 736-9) MONO % (test code = 7.3 % 5905-5) EOS % (test code = 0.6 % 713-8) BASO % (test code = 0.4 % 706-2) GRAN MAT x10^3(ANC) 7.92 10*3/uL 1.99-6.95 H (test code = 9718518956) IMM GRAN x10^3 (test 0.44 10*3/uL 0.00-0.06 H code = 9953984793) LYMPH x10^3 (test code 0.64 10*3/uL 1.09-3.23 L = 731-0) MONO x10^3 (test code 0.72 10*3/uL 0.36-1.02 = 742-7) EOS x10^3 (test code = 0.06 10*3/uL 0.06-0.53 711-2) BASO x10^3 (test code 0.04 10*3/uL 0.01-0.09 = 704-7) MEAGHAN CELLS (test code 2+ See_Comment A [Auto mated = 8729-9) message] The sy stem which generated this result transmitted reference range : (none). The reference range was not used to interpret this result as normal/abnormal . REACT LYMPHS (test Rare code = 8040530222) Lab Interpretation Abnormal (test code = 54487-1) [facility] WITH [id number] 12:02:32 Test Item Value Reference Range Interpretation Comments WBC (test code = 9.82 See_Comment [Automated 4890-2) message] The sy stem which generated this result transmitted reference range : 4.20 - 10.70 10*3/?L. The reference range was not used to interpret this result as normal/abnormal . RBC (test code = 3.82 See_Comment L [Automated 979-8) message] The sy stem which generated this [...] RDW-SD (test code = 46.6 fL 38.5-51.6 24137-4) RDW-CV (test code = 14.9 % 12.1-15.4 788-0) PLT (test code = 154 See_Comment [Automated 237-3) message] The sy stem which generated this result transmitted reference range : 150 - 328 10*3/ ?L. The reference r mitra was not used to interpret this result as normal/abnormal . MPV (test code = 9.5 fL 9.8-13.0 L 93543-1) NRBC/100 WBC (test 0.2 See_Comment [Automat ed code = 3419676356) message] The system which generated this result transmitted reference range : 0.0 - 10.0 /100 WBCs. The refer ence range was not u sed to interpret th is result as normal/abnormal . NRBC x10^3 (test code 0.02 See_Comment [Auto mated = 5595290189) message] The s ystem which generated this result transmitted reference range : 10*3/?L. The reference range was not used to interpret this result as normal/abnormal . GRAN MAT (NEUT) % 80.7 % (test code = 770-8) IMM GRAN % (test code 4.50 % = 0716443012) LYMPH % (test code = 6.5 % 736-9) MONO % (test code = 7.3 % 5905-5) EOS % (test code = 0.6 % 713-8) BASO % (test code = 0.4 % 706-2) GRAN MAT x10^3(ANC) 7.92 10*3/uL 1.99-6.95 H (test code = 2224723473) IMM GRAN x10^3 (test 0.44 10*3/uL 0.00-0.06 H code = 9429980479) LYMPH x10^3 (test code 0.64 10*3/uL 1.09-3.23 L = 731-0) MONO x10^3 (test code 0.72 10*3/uL 0.36-1.02 = 742-7) EOS x10^3 (test code = 0.06 10*3/uL 0.06-0.53 711-2) BASO x10^3 (test code 0.04 10*3/uL 0.01-0.09 = 704-7) MEAGHAN CELLS (test code 2+ See_Comment A [Auto mated = 5959-1) message] The sy stem which generated this result transmitted reference range : (none). The reference range was not used to interpret this result as normal/abnormal . REACT LYMPHS (test Rare code = 3663980286) Lab Interpretation Abnormal (test code = 40741-6) [facility]29 Test Item Value Reference Range Interpretation Comments MAGNESIUM (test code = 0322324043) 2.1 mg/dL 1.7-2.4 Lab Interpretation (test code = Normal 01803-0) [facility] 11:43:29 Test Item Value Reference Range Interpretation Comments PHOSPHORUS (test code = 1754559259) 3.7 mg/dL 2.5-5.0 Lab Interpretation (test code = Normal 52683-5) [facility] (NA, K, CL, CO2, GLUCOSE, BUN, CREATININE, CA)2022-05-31 11:43:29 Test Item Value Reference Range Interpretation Comments NA (test code = 133 mmol/L 135-145 L 8572679426) K (test code = 4.7 mmol/L 3.5-5.0 Slight 3209191582) hemolysis CL (test code = 104 mmol/L 98-108 2763836467) CO2 TOTAL (test code 25 mmol/L 23-31 = 5048799651) AGAP (test code = 4 2-16 4351354768) BUN (test code = 17 mg/dL 7-23 Slight 3097876195) hemolysis GLUCOSE (test code = 189 mg/dL 70-110 H 5513093377) CREATININE (test code 0.82 mg/dL 0.60-1.25 = 5054179180) CALCIUM (test code = 8.0 mg/dL 8.6-10.6 L 6350827265) eGFR (test code = 96.2 mL/min/1.73m2 5754230151) DEWAYNE (test code = DEWAYNE) Association of [...] tests). Lab Interpretation Abnormal (test code = 52091-9) [facility] 11:43:29 Test Item Value Reference Range Interpretation Comments MAGNESIUM (test code = 6111916957) 2.1 mg/dL 1.7-2.4 Lab Interpretation (test code = Normal 49435-2) [facility] 11:43:29 Test Item Value Reference Range Interpretation Comments PHOSPHORUS (test code = 2777198076) 3.7 mg/dL 2.5-5.0 Lab Interpretation (test code = Normal 26681-9) [facility] (NA, K, CL, CO2, GLUCOSE, BUN, CREATININE, CA)2022-05-31 11:43:29 Test Item Value Reference Range Interpretation Comments NA (test code = 133 mmol/L 135-145 L 9367529288) K (test code = 4.7 mmol/L 3.5-5.0 Slight 3409010730) hemolysis CL (test code = 104 mmol/L 98-108 4114841228) CO2 TOTAL (test code 25 mmol/L 23-31 = 1346429139) AGAP (test code = 4 2-16 6902326838) BUN (test code = 17 mg/dL 7-23 Slight 9000249485) hemolysis GLUCOSE (test code = 189 mg/dL 70-110 H 4047071354) CREATININE (test code 0.82 mg/dL 0.60-1.25 = 7955171479) CALCIUM (test code = 8.0 mg/dL 8.6-10.6 L 2532486184) eGFR (test code = 96.2 mL/min/1.73m2 7727810282) DEWAYNE (test code = DEWAYNE) Association of [...] tests). Lab Interpretation Abnormal (test code = 12122-9) [facility] Test Item Value Reference Range Interpretation Comments MAGNESIUM (test code = 5402198266) 2.1 mg/dL 1.7-2.4 Lab Interpretation (test code = Normal 08257-8) [facility]29 Test Item Value Reference Range Interpretation Comments PHOSPHORUS (test code = 9104695921) 3.7 mg/dL 2.5-5.0 Lab Interpretation (test code = Normal 37747-5) [facility] METABOLIC PANEL (NA, K, CL, CO2, GLUCOSE, BUN, CREATININE, CA)2022-05-31 11:43:29 Test Item Value Reference Range Interpretation Comments NA (test code = 133 mmol/L 135-145 L 3870781237) K (test code = 4.7 mmol/L 3.5-5.0 Slight 0253139224) hemolysis CL (test code = 104 mmol/L 98-108 0517955723) CO2 TOTAL (test code 25 mmol/L 23-31 = 0989011764) AGAP (test code = 4 2-16 5900284054) BUN (test code = 17 mg/dL 7-23 Slight 3623728345) hemolysis GLUCOSE (test code = 189 mg/dL 70-110 H 2175267145) CREATININE (test code 0.82 mg/dL 0.60-1.25 = 5109249405) CALCIUM (test code = 8.0 mg/dL 8.6-10.6 L 2883233413) eGFR (test code = 96.2 mL/min/1.73m2 3149284593) DEWAYNE (test code = DEWAYNE) Association of [...] tests). Lab Interpretation Abnormal (test code = 49635-3) [facility]:44 Test Item Value Reference Range Interpretation Comments Fibrinogen (test code = 3680277962) 218 mg/dL 167-453 Lab Interpretation (test code = Normal 46752-7) [facility] 11:30:44 Test Item Value Reference Range Interpretation Comments Fibrinogen (test code = 5730621547) 218 mg/dL 167-453 Lab Interpretation (test code = Normal 71641-5) [facility] 11:30:44 Test Item Value Reference Range Interpretation Comments Fibrinogen (test code = 6146386521) 218 mg/dL 167-453 Lab Interpretation (test code = Normal 75724-1) [facility] / [id number] 11:29:02 Test Item Value Reference Range Interpretation Comments PROTIME PATIENT (test 12.7 See_Comment H [Auto mated message] code = 5964-2) The system [employer] generated this result transmitted ref erence range: 10.1 - 1 2.6 Seconds. The reference range was not used to int erpret this result as normal/abnormal . INR (test code = 6301-6) 1.1 Nor mal INR <1.1; Warfarin Therap eutic range 2.0 to 3. 0 or 2.5 to 3.5, dep ending upon the indica tions. Lab Interpretation (test Abnormal code = 46844-7) [facility] 11:29:02 Test Item Value Reference Range Interpretation Comments APTT Patient (test code 82 See_Comment H [Au tomated message] = 3173-2) The system [employer] h generated this result transmitted ref erence range: 26 - 36 Seconds. The reference range was not used to int erpret this result as normal/abnormal . Lab Interpretation (test Abnormal code = 98109-8) [facility] / [id number] 11:29:02 Test Item Value Reference Range Interpretation Comments PROTIME PATIENT (test 12.7 See_Comment H [Auto mated message] code = 5964-2) The system [employer] generated this result transmitted ref erence range: 10.1 - 1 2.6 Seconds. The reference range was not used to int erpret this result as normal/abnormal . INR (test code = 6301-6) 1.1 Nor mal INR <1.1; Warfarin Therap eutic range 2.0 to 3. 0 or 2.5 to 3.5, dep ending upon the indica tions. Lab Interpretation (test Abnormal code = 67955-6) [facility] 11:29:02 Test Item Value Reference Range Interpretation Comments APTT Patient (test code 82 See_Comment H [Au tomated message] = 3173-2) The system [employer] generated this result transmitted ref erence range: 26 - 36 Seconds. The reference range was not used to int erpret this result as normal/abnormal . Lab Interpretation (test Abnormal code = 21448-7) [facility] / [id number] 11:29:02 Test Item Value Reference Range Interpretation Comments PROTIME PATIENT (test 12.7 See_Comment H [Auto mated message] code = 5964-2) The system [employer] generated this result transmitted ref erence range: 10.1 - 1 2.6 Seconds. The reference range was not used to int erpret this result as normal/abnormal . INR (test code = 6301-6) 1.1 Nor mal INR <1.1; Warfarin Therap eutic range 2.0 to 3. 0 or 2.5 to 3.5, dep ending upon the indica tions. Lab Interpretation (test Abnormal code = 37139-8) [facility] 11:29:02 Test Item Value Reference Range Interpretation Comments APTT Patient (test code 82 See_Comment H [Au tomated message] = 3173-2) The system [employer] generated this result transmitted ref erence range: 26 - 36 Seconds. The reference range was not used to int erpret this result as normal/abnormal . Lab Interpretation (test Abnormal code = 76211-1) [facility]2023-04-18 02:12:17 Test Item Value Reference Range Interpretation Comments Fibrinogen (test code = 4432081396) 124 mg/dL 167-453 L Lab Interpretation (test code = Abnormal 97415-0) [facility]2023-04-18 02:12:17 Test Item Value Reference Range Interpretation Comments Fibrinogen (test code = 0962690016) 124 mg/dL 167-453 L Lab Interpretation (test code = Abnormal 06660-6) [facility] hospital2023-04-18 02:12:17 Test Item Value Reference Range Interpretation Comments Fibrinogen (test code = 5940506756) 124 mg/dL 167-453 L Lab Interpretation (test code = Abnormal 31568-6) [address]04-17 22:27:11 Test Item Value Reference Range Interpretation Comments Fibrinogen (test code = 4779259436) 108 mg/dL 167-453 L Lab Interpretation (test code = Abnormal 93159-2) [facility] acute hospital2023-04-17 22:27:11 Test Item Value Reference Range Interpretation Comments Fibrinogen (test code = 5554657798) 108 mg/dL 167-453 L Lab Interpretation (test code = Abnormal 55571-2) [facility] acute hospital2023-04-17 22:27:11 Test Item Value Reference Range Interpretation Comments Fibrinogen (test code = 8068412637) 108 mg/dL 167-453 L Lab Interpretation (test code = Abnormal 45038-8) [facility]2023-04-17 18:54:36 Test Item Value Reference Range Interpretation Comments Fibrinogen (test code = 7411169546) 110 mg/dL 167-453 L Lab Interpretation (test code = Abnormal 55491-6) [facility] acute hospital2023-04-17 18:54:36 Test Item Value Reference Range Interpretation Comments Fibrinogen (test code = 5272011308) 110 mg/dL 167-453 L Lab Interpretation (test code = Abnormal 54941-5) [facility] acute hospital2023-04-17 18:54:36 Test Item Value Reference Range Interpretation Comments Fibrinogen (test code = 3067204429) 110 mg/dL 167-453 L Lab Interpretation (test code = Abnormal 94665-8) [facility] acute hospital2023-04-17 18:54:36 Test Item Value Reference Range Interpretation Comments Fibrinogen (test code = 2339634290) 110 mg/dL 167-453 L Lab Interpretation (test code = Abnormal 52128-7) [facility] acute hospital2023-04-17 15:54:43 Test Item Value Reference Range Interpretation Comments Fibrinogen (test code = 9613394247) 118 mg/dL 167-453 L Lab Interpretation (test code = Abnormal 15558-4) [facility] acute hospital2023-04-17 15:54:43 Test Item Value Reference Range Interpretation Comments Fibrinogen (test code = 0608261485) 118 mg/dL 167-453 L Lab Interpretation (test code = Abnormal 55751-8) [facility] acute hospital2023-04-17 15:54:43 Test Item Value Reference Range Interpretation Comments Fibrinogen (test code = 1326827245) 118 mg/dL 167-453 L Lab Interpretation (test code = Abnormal 97238-6) [facility] acute hospital2023-04-17 15:54:43 Test Item Value Reference Range Interpretation Comments Fibrinogen (test code = 7650572910) 118 mg/dL 167-453 L Lab Interpretation (test code = Abnormal 13169-4) [facility] acute hospital2023-04-17 13:43:27 Test Item Value Reference Range Interpretation Comments Fibrinogen (test code = 8254748920) 119 mg/dL 167-453 L Lab Interpretation (test code = Abnormal 44161-6) General acute hospital2023-04-17 13:43:27 Test Item Value Reference Range Interpretation Comments Fibrinogen (test code = 7800389923) 119 mg/dL 167-453 L Lab Interpretation (test code = Abnormal 91365-5) [address]04-17 13:43:27 Test Item Value Reference Range Interpretation Comments Fibrinogen (test code = 3180044628) 119 mg/dL 167-453 L Lab Interpretation (test code = Abnormal 07072-7) [address]04-17 13:43:27 Test Item Value Reference Range Interpretation Comments Fibrinogen (test code = 7398625848) 119 mg/dL 167-453 L Lab Interpretation (test code = [facility]normal 51173-7) [facility]10 Test Item Value Reference Range Interpretation Comments Fibrinogen (test code = 2062959083) 97 mg/dL 167-453 LL Lab Interpretation (test code = Abnormal 85796-7) [facility] 11:50:10 Test Item Value Reference Range Interpretation Comments Fibrinogen (test code = 1333502351) 97 mg/dL 167-453 LL Lab Interpretation (test code = Abnormal 52074-8) General acute hospital2023-04-17 11:50:10 Test Item Value Reference Range Interpretation Comments Fibrinogen (test code = 9644228658) 97 mg/dL 167-453 LL Lab Interpretation (test code = Abnormal 13445-8) General acute hospital2023-04-17 11:50:10 Test Item Value Reference Range Interpretation Comments Fibrinogen (test code = 5950617766) 97 mg/dL 167-453 LL Lab Interpretation (test code = Abnormal 80767-3) [facility] WITH [id number] 10:13:04 Test Item Value Reference Range Interpretation Comments WBC (test code = 9.36 See_Comment [Automated 2290-2) message] The sy stem which generated this [...] RDW-SD (test code = 45.3 fL 38.5-51.6 39057-0) RDW-CV (test code = 14.5 % 12.1-15.4 788-0) PLT (test code = 174 See_Comment [Automated 777-3) message] The sy stem which generated this result transmitted reference range : 150 - 328 10*3/ ?L. The reference r mitra was not used to interpret this result as normal/abnormal . MPV (test code = 8.9 fL 9.8-13.0 L 48261-3) NRBC/100 WBC (test 0.3 See_Comment [Automat ed code = 3901159334) message] The system which generated this result transmitted reference range : 0.0 - 10.0 /100 WBCs. The refer ence range was not u sed to interpret th is result as normal/abnormal . NRBC x10^3 (test code 0.03 See_Comment [Auto mated = 6839101136) message] The s ystem which generated this result transmitted reference range : 10*3/?L. The reference range was not used to interpret this result as normal/abnormal . GRAN MAT (NEUT) % 63.0 % (test code = 770-8) IMM GRAN % (test code 3.60 % = 1666839690) LYMPH % (test code = 17.5 % 736-9) MONO % (test code = 10.8 % 5905-5) EOS % (test code = 4.5 % 713-8) BASO % (test code = 0.6 % 706-2) GRAN MAT x10^3(ANC) 5.89 10*3/uL 1.99-6.95 (test code = 5950906496) IMM GRAN x10^3 (test 0.34 10*3/uL 0.00-0.06 H code = 1144406387) LYMPH x10^3 (test code 1.64 10*3/uL 1.09-3.23 = 731-0) MONO x10^3 (test code 1.01 10*3/uL 0.36-1.02 = 742-7) EOS x10^3 (test code = 0.42 10*3/uL 0.06-0.53 711-2) BASO x10^3 (test code 0.06 10*3/uL 0.01-0.09 = 704-7) REACT LYMPHS (test Rare code = 1848648357) Lab Interpretation Abnormal (test code = 20267-0) [facility] WITH [id number] 10:13:04 Test Item Value Reference Range Interpretation [...] RDW-SD (test code = 45.3 fL 38.5-51.6 07866-5) RDW-CV (test code = 14.5 % 12.1-15.4 788-0) PLT (test code = 174 See_Comment [Automated 777-3) message] The sy stem which generated this result transmitted reference range : 150 - 328 10*3/ ?L. The reference r mitra was not used to interpret this result as normal/abnormal . MPV (test code = 8.9 fL 9.8-13.0 L 98430-2) NRBC/100 WBC (test 0.3 See_Comment [Automat ed code = 1839344992) message] The system which generated this result transmitted reference range : 0.0 - 10.0 /100 WBCs. The refer ence range was not u sed to interpret th is result as normal/abnormal . NRBC x10^3 (test code 0.03 See_Comment [Auto mated = 6102932604) message] The s ystem which generated this result transmitted reference range : 10*3/?L. The reference range was not used to interpret this result as normal/abnormal . GRAN MAT (NEUT) % 63.0 % (test code = 770-8) IMM GRAN % (test code 3.60 % = 0749385584) LYMPH % (test code = 17.5 % 736-9) MONO % (test code = 10.8 % 5905-5) EOS % (test code = 4.5 % 713-8) BASO % (test code = 0.6 % 706-2) GRAN MAT x10^3(ANC) 5.89 10*3/uL 1.99-6.95 (test code = 0815223418) IMM GRAN x10^3 (test 0.34 10*3/uL 0.00-0.06 H code = 1984557001) LYMPH x10^3 (test code 1.64 10*3/uL 1.09-3.23 = 731-0) MONO x10^3 (test code 1.01 10*3/uL 0.36-1.02 = 742-7) EOS x10^3 (test code = 0.42 10*3/uL 0.06-0.53 711-2) BASO x10^3 (test code 0.06 10*3/uL 0.01-0.09 = 704-7) REACT LYMPHS (test Rare code = 0084604471) Lab Interpretation Abnormal (test code = 48589-9) [facility] WITH [id number] 10:13:04 Test Item Value Reference Range Interpretation Comments WBC (test code = 9.36 See_Comment [Automated 3390-2) message] The sy stem which generated this result transmitted reference range : 4.20 - 10.70 10*3/?L. The reference range was not used to interpret this result as normal/abnormal . RBC (test code = 4.03 See_Comment L [Automated 779-8) message] The sy [...] RDW-SD (test code = 45.3 fL 38.5-51.6 83883-2) RDW-CV (test code = 14.5 % 12.1-15.4 788-0) PLT (test code = 174 See_Comment [Automated 777-3) message] The sy stem which generated this result transmitted reference range : 150 - 328 10*3/ ?L. The reference r mitra was not used to interpret this result as normal/abnormal . MPV (test code = 8.9 fL 9.8-13.0 L 66211-7) NRBC/100 WBC (test 0.3 See_Comment [Automat ed code = 7632499604) message] The system which generated this result transmitted reference range : 0.0 - 10.0 /100 WBCs. The refer ence range was not u sed to interpret th is result as normal/abnormal . NRBC x10^3 (test code 0.03 See_Comment [Auto mated = 2170546551) message] The s ystem which generated this result transmitted reference range : 10*3/?L. The reference range was not used to interpret this result as normal/abnormal . GRAN MAT (NEUT) % 63.0 % (test code = 770-8) IMM GRAN % (test code 3.60 % = 0069769351) LYMPH % (test code = 17.5 % 736-9) MONO % (test code = 10.8 % 5905-5) EOS % (test code = 4.5 % 713-8) BASO % (test code = 0.6 % 706-2) GRAN MAT x10^3(ANC) 5.89 10*3/uL 1.99-6.95 (test code = 3525164919) IMM GRAN x10^3 (test 0.34 10*3/uL 0.00-0.06 H code = 4660259325) LYMPH x10^3 (test code 1.64 10*3/uL 1.09-3.23 = 731-0) MONO x10^3 (test code 1.01 10*3/uL 0.36-1.02 = 742-7) EOS x10^3 (test code = 0.42 10*3/uL 0.06-0.53 711-2) BASO x10^3 (test code 0.06 10*3/uL 0.01-0.09 = 704-7) REACT LYMPHS (test Rare code = 7135397656) Lab Interpretation Abnormal (test code = 34468-8) [facility] WITH [id number] 10:13:04 Test Item Value Reference Range Interpretation Comments WBC (test code = 9.36 See_Comment [Automated 6690-2) message] The sy stem which generated this result transmitted reference range : 4.20 - 10.70 10*3/?L. The reference range was not used to interpret this result as normal/abnormal . RBC (test code = 4.03 See_Comment L [Automated 829-8) message] The sy [...] RDW-SD (test code = 45.3 fL 38.5-51.6 26053-7) RDW-CV (test code = 14.5 % 12.1-15.4 788-0) PLT (test code = 174 See_Comment [Automated 777-3) message] The sy stem which generated this result transmitted reference range : 150 - 328 10*3/ ?L. The reference r mitra was not used to interpret this result as normal/abnormal . MPV (test code = 8.9 fL 9.8-13.0 L 82333-4) NRBC/100 WBC (test 0.3 See_Comment [Automat ed code = 1766098733) message] The system which generated this result transmitted reference range : 0.0 - 10.0 /100 WBCs. The refer ence range was not u sed to interpret th is result as normal/abnormal . NRBC x10^3 (test code 0.03 See_Comment [Auto mated = 5275443737) message] The s ystem which generated this result transmitted reference range : 10*3/?L. The reference range was not used to interpret this result as normal/abnormal . GRAN MAT (NEUT) % 63.0 % (test code = 770-8) IMM GRAN % (test code 3.60 % = 6631525834) LYMPH % (test code = 17.5 % 736-9) MONO % (test code = 10.8 % 5905-5) EOS % (test code = 4.5 % 713-8) BASO % (test code = 0.6 % 706-2) GRAN MAT x10^3(ANC) 5.89 10*3/uL 1.99-6.95 (test code = 4544279127) IMM GRAN x10^3 (test 0.34 10*3/uL 0.00-0.06 H code = 2440545571) LYMPH x10^3 (test code 1.64 10*3/uL 1.09-3.23 = 731-0) MONO x10^3 (test code 1.01 10*3/uL 0.36-1.02 = 742-7) EOS x10^3 (test code = 0.42 10*3/uL 0.06-0.53 711-2) BASO x10^3 (test code 0.06 10*3/uL 0.01-0.09 = 704-7) REACT LYMPHS (test Rare code = 7483565537) Lab Interpretation Abnormal (test code = 45209-3) [facility] 10:10:03 Test Item Value Reference Range Interpretation Comments PHOSPHORUS (test code = 2635822842) 4.2 mg/dL 2.5-5.0 Lab Interpretation (test code = Normal 94579-2) [facility] 10:10:03 Test Item Value Reference Range Interpretation Comments MAGNESIUM (test code = 3338281461) 2.0 mg/dL 1.7-2.4 Lab Interpretation (test code = Normal 91868-0) [facility] (NA, K, CL, CO2, GLUCOSE, BUN, CREATININE, CA)2022-05-30 10:10:03 Test Item Value Reference Range Interpretation Comments NA (test code = 133 mmol/L 135-145 L 5223984890) K (test code = 3.9 mmol/L 3.5-5.0 6311696157) CL (test code = 103 mmol/L 98-108 4733203256) CO2 TOTAL (test code = 25 mmol/L 23-31 2239683170) AGAP (test code = 5 2-16 2079490503) BUN (test code = 22 mg/dL 7-23 8534190334) GLUCOSE (test code = 128 mg/dL 70-110 H 0394514055) CREATININE (test code = 0.87 mg/dL 0.60-1.25 7783437362) CALCIUM (test code = 8.2 mg/dL 8.6-10.6 L 2152584595) eGFR (test code = 89.8 mL/min/1.73m2 0625049751) DEWAYNE (test code = DEWAYNE) Association of [...] tests). Lab Interpretation Abnormal (test code = 44399-3) [facility] 10:10:03 Test Item Value Reference Range Interpretation Comments PHOSPHORUS (test code = 7451067088) 4.2 mg/dL 2.5-5.0 Lab Interpretation (test code = Normal 65403-4) [facility] 10:10:03 Test Item Value Reference Range Interpretation Comments MAGNESIUM (test code = 0984064834) 2.0 mg/dL 1.7-2.4 Lab Interpretation (test code = Normal 10188-1) [facility] (NA, K, CL, CO2, GLUCOSE, BUN, CREATININE, CA)2022-05-30 10:10:03 Test Item Value Reference Range Interpretation Comments NA (test code = 133 mmol/L 135-145 L 6997739348) K (test code = 3.9 mmol/L 3.5-5.0 2408595189) CL (test code = 103 mmol/L 98-108 6985344046) CO2 TOTAL (test code = 25 mmol/L 23-31 5345585641) AGAP (test code = 5 2-16 7523687697) BUN (test code = 22 mg/dL 7-23 7999284072) GLUCOSE (test code = 128 mg/dL 70-110 H 6627804317) CREATININE (test code = 0.87 mg/dL 0.60-1.25 4709660116) CALCIUM (test code = 8.2 mg/dL 8.6-10.6 L 9514946286) eGFR (test code = 89.8 mL/min/1.73m2 4264466846) DEWAYNE (test code = DEWAYNE) Association of [...] tests). Lab Interpretation Abnormal (test code = 59964-6) [facility] 10:10:03 Test Item Value Reference Range Interpretation Comments PHOSPHORUS (test code = 4524291310) 4.2 mg/dL 2.5-5.0 Lab Interpretation (test code = Normal 73680-7) [facility] 10:10:03 Test Item Value Reference Range Interpretation Comments MAGNESIUM (test code = 0564437117) 2.0 mg/dL 1.7-2.4 Lab Interpretation (test code = Normal 66367-4) [facility] METABOLIC PANEL (NA, K, CL, CO2, GLUCOSE, BUN, CREATININE, CA)2022-05-30 10:10:03 Test Item Value Reference Range Interpretation Comments NA (test code = 133 mmol/L 135-145 L 3387578361) K (test code = 3.9 mmol/L 3.5-5.0 5378308614) CL (test code = 103 mmol/L 98-108 9788954960) CO2 TOTAL (test code = 25 mmol/L 23-31 9042523128) AGAP (test code = 5 2-16 5579482878) BUN (test code = 22 mg/dL 7-23 8815377582) GLUCOSE (test code = 128 mg/dL 70-110 H 5949100892) CREATININE (test code = 0.87 mg/dL 0.60-1.25 1465407171) CALCIUM (test code = 8.2 mg/dL 8.6-10.6 L 1022597644) eGFR (test code = 89.8 mL/min/1.73m2 0851908324) DEWAYNE (test code = DEWAYNE) Association of [...] tests). Lab Interpretation Abnormal (test code = 99722-0) [facility] 10:10:03 Test Item Value Reference Range Interpretation Comments PHOSPHORUS (test code = 6175975123) 4.2 mg/dL 2.5-5.0 Lab Interpretation (test code = Normal 83818-7) [facility] 10:10:03 Test Item Value Reference Range Interpretation Comments MAGNESIUM (test code = 5437996336) 2.0 mg/dL 1.7-2.4 Lab Interpretation (test code = Normal 10054-8) [facility] (NA, K, CL, CO2, GLUCOSE, BUN, CREATININE, CA)2022-05-30 10:10:03 Test Item Value Reference Range Interpretation Comments NA (test code = 133 mmol/L 135-145 L 3721191769) K (test code = 3.9 mmol/L 3.5-5.0 6208938732) CL (test code = 103 mmol/L 98-108 5653365911) CO2 TOTAL (test code = 25 mmol/L 23-31 6331313793) AGAP (test code = 5 2-16 1026449333) BUN (test code = 22 mg/dL 7-23 6953584118) GLUCOSE (test code = 128 mg/dL 70-110 H 3876703374) CREATININE (test code = 0.87 mg/dL 0.60-1.25 2420077902) CALCIUM (test code = 8.2 mg/dL 8.6-10.6 L 4960389272) eGFR (test code = 89.8 mL/min/1.73m2 3982951289) DEWAYNE (test code = DEWAYNE) Association of [...] tests). Lab Interpretation Abnormal (test code = 02610-0) [facility] Test Item Value Reference Range Interpretation Comments Fibrinogen (test code = 2058886673) 86 mg/dL 167-453 LL Lab Interpretation (test code = Abnormal 20624-0) [facility] 09[facility]52:38 Test Item Value Reference Range Interpretation Comments Fibrinogen (test code = 4139869526) 86 mg/dL 167-453 LL Lab Interpretation (test code = Abnormal 62631-0) [facility]17 09:52:38 Test Item Value Reference Range Interpretation Comments Fibrinogen (test code = 8277425123) 86 mg/dL 167-453 LL Lab Interpretation (test code = Abnormal 04642-9) [facility] 09:52:38 Test Item Value Reference Range Interpretation Comments Fibrinogen (test code = 7584831173) 86 mg/dL 167-453 LL Lab Interpretation (test code = Abnormal 89568-8) [facility] 09:51:57 Test Item Value Reference Range Interpretation Comments APTT Patient (test code 44 See_Comment H [Au tomated message] = 3173-2) The system [employer] generated this result transmitted ref erence range: 26 - 36 Seconds. The reference range was not used to int erpret this result as normal/abnormal . Lab Interpretation (test Abnormal code = 33089-3) [place] [address]-04-17 09:51:57 Test Item Value Reference Range Interpretation Comments APTT Patient (test code 44 See_Comment H [Au tomated message] = 3173-2) The system [employer] generated this result transmitted ref erence range: 26 - 36 Seconds. The reference range was not used to int erpret this result as normal/abnormal . Lab Interpretation (test Abnormal code = 82055-0) [place] [address]-04-17 09:51:57 Test Item Value Reference Range Interpretation Comments APTT Patient (test code 44 See_Comment H [Au tomated message] = 3173-2) The system [employer] generated this result transmitted ref erence range: 26 - 36 Seconds. The reference range was not used to int erpret this result as normal/abnormal . Lab Interpretation (test Abnormal code = 58358-3) [place] 71248023-04-17 09:51:57 Test Item Value Reference Range Interpretation Comments APTT Patient (test code 44 See_Comment H [Au tomated message] = 3173-2) The system [employer] generated this result transmitted ref erence range: 26 - 36 Seconds. The reference range was not used to int erpret this result as normal/abnormal . Lab Interpretation (test Abnormal code = 35756-8) [facility]2023-[facility]-17 07:28:55 Test Item Value Reference Range Interpretation Comments Fibrinogen (test code = 5332183284) 73 mg/dL 167-453 LL Lab Interpretation (test code = Abnormal 80444-3) [place] [address]-04-17 07:28:55 Test Item Value Reference Range Interpretation Comments Fibrinogen (test code = 3707533562) 73 mg/dL 167-453 LL Lab Interpretation (test code = Abnormal 58143-0) [place] [address]-04-17 07:28:55 Test Item Value Reference Range Interpretation Comments Fibrinogen (test code = 7267325801) 73 mg/dL 167-453 LL Lab Interpretation (test code = Abnormal 37969-2) [facility] 07:28:55 Test Item Value Reference Range Interpretation Comments Fibrinogen (test code = 0015590326) 73 mg/dL 167-453 LL Lab Interpretation (test code = Abnormal 74845-7) [facility] (for use with Heparin Drip)2022-05-30 06:39:14 Test Item Value Reference Range Interpretation Comments APTT Patient (test code 44 See_Comment H [Au tomated message] = 3173-2) The system [employer] generated this result transmitted ref erence range: 26 - 36 Seconds. The reference range was not used to int erpret this result as normal/abnormal . Lab Interpretation (test Abnormal code = 76736-0) [facility] (for use with Heparin Drip)2022-05-30 06:39:14 Test Item Value Reference Range Interpretation Comments APTT Patient (test code 44 See_Comment H [Au tomated message] = 3173-2) The system [employer] generated this result transmitted ref erence range: 26 - 36 Seconds. The reference range was not used to int erpret this result as normal/abnormal . Lab Interpretation (test Abnormal code = 84954-4) [facility] (for use with Heparin Drip)2022-05-30 06:39:14 Test Item Value Reference Range Interpretation Comments APTT Patient (test code 44 See_Comment H [Au tomated message] = 3173-2) The system Aqu[employer] generated this result transmitted ref erence range: 26 - 36 Seconds. The reference range was not used to int erpret this result as normal/abnormal . Lab Interpretation (test Abnormal code = 91940-0) [facility] (for use with Heparin Drip)2022-05-30 06:39:14 Test Item Value Reference Range Interpretation Comments APTT Patient (test code 44 See_Comment H [Au tomated message] = 3173-2) The system Aqu[employer] generated this result transmitted ref erence range: 26 - 36 Seconds. The reference range was not used to int erpret this result as normal/abnormal . Lab Interpretation (test Abnormal code = 98557-6) [facility] acute hospital2023-04-17 05:26:04 Test Item Value Reference Range Interpretation Comments Fibrinogen (test code = 4261416736) 71 mg/dL 167-453 LL Lab Interpretation (test code = Abnormal 64892-3) General acute hospital2023-04-17 05:26:04 Test Item Value Reference Range Interpretation Comments Fibrinogen (test code = 5852475489) 71 mg/dL 167-453 LL Lab Interpretation (test code = Abnormal 50653-4) General acute hospital2023-04-17 05:26:04 Test Item Value Reference Range Interpretation Comments Fibrinogen (test code = 8421629761) 71 mg/dL 167-453 LL Lab Interpretation (test code = Abnormal 95611-3) General acute hospital2023-04-17 05:26:04 Test Item Value Reference Range Interpretation Comments Fibrinogen (test code = 2589615701) 71 mg/dL 167-453 LL Lab Interpretation (test code = Abnormal 49565-7) [facility]2023-[facility] 23:49:05 Test Item Value Reference Range Interpretation Comments Fibrinogen (test code = 6712647488) 98 mg/dL 167-453 LL Lab Interpretation (test code = Abnormal 12877-9) [facility]2023-04-16 23:49:05 Test Item Value Reference Range Interpretation Comments Fibrinogen (test code = 5833823607) 98 mg/dL 167-453 LL Lab Interpretation (test code = Abnormal 39425-4) [facility]2023-04-16 23:49:05 Test Item Value Reference Range Interpretation Comments Fibrinogen (test code = 5892950912) 98 mg/dL 167-453 LL Lab Interpretation (test code = Abnormal 25340-7) [facility]2023-04-16 23:49:05 Test Item Value Reference Range Interpretation Comments Fibrinogen (test code = 8670408721) 98 mg/dL 167-453 LL Lab Interpretation (test code = Abnormal 73724-1) General acute hospital2023-04-16 21:48:37 Test Item Value Reference Range Interpretation Comments Fibrinogen (test code = 3920818634) 113 mg/dL 167-453 L Lab Interpretation (test code = Abnormal 66043-9) [facility] acute hospital2023-04-16 21:48:37 Test Item Value Reference Range Interpretation Comments Fibrinogen (test code = 4551747664) 113 mg/dL 167-453 L Lab Interpretation (test code = Abnormal 63809-0) [facility] acute hospital2023-04-16 21:48:37 Test Item Value Reference Range Interpretation Comments Fibrinogen (test code = 3423817964) 113 mg/dL 167-453 L Lab Interpretation (test code = Abnormal 06447-0) General acute hospital2023-04-16 21:48:37 Test Item Value Reference Range Interpretation Comments Fibrinogen (test code = 3140492327) 113 mg/dL 167-453 L Lab Interpretation (test code = Abnormal 74276-0) [facility] METABOLIC PANEL (NA, K, CL, CO2, GLUCOSE, BUN, CREATININE, CA)2022-05-29 15:33:06 Test Item Value Reference Range Interpretation Comments NA (test code = 139 mmol/L 135-145 2857613919) K (test code = 4.2 mmol/L 3.5-5.0 5097035863) CL (test code = 104 mmol/L 98-108 5772270413) CO2 TOTAL (test code = 29 mmol/L 23-31 5992870583) AGAP (test code = 6 2-16 8001504947) BUN (test code = 25 mg/dL 7-23 H 4263605911) GLUCOSE (test code = 85 mg/dL 70-110 4062674191) CREATININE (test code = 1.02 mg/dL 0.60-1.25 8224386739) CALCIUM (test code = 8.7 mg/dL 8.6-10.6 5754124603) eGFR (test code = 74.8 mL/min/1.73m2 5181175758) DEWAYNE (test code = DEWAYNE) Association of [...] tests). Lab Interpretation Abnormal (test code = 85788-2) [facility] (NA, K, CL, CO2, GLUCOSE, BUN, CREATININE, CA)2022-05-29 15:33:06 Test Item Value Reference Range Interpretation Comments NA (test code = 139 mmol/L 135-145 0041613057) K (test code = 4.2 mmol/L 3.5-5.0 0954079888) CL (test code = 104 mmol/L 98-108 3129639169) CO2 TOTAL (test code = 29 mmol/L 23-31 8525243863) AGAP (test code = 6 2-16 7826012530) BUN (test code = 25 mg/dL 7-23 H 1112276513) GLUCOSE (test code = 85 mg/dL 70-110 3501019169) CREATININE (test code = 1.02 mg/dL 0.60-1.25 1215992559) CALCIUM (test code = 8.7 mg/dL 8.6-10.6 3825823180) eGFR (test code = 74.8 mL/min/1.73m2 4836550933) DEWAYNE (test code = DEWAYNE) Association of [...] tests). Lab Interpretation Abnormal (test code = 98004-6) [facility] METABOLIC PANEL (NA, K, CL, CO2, GLUCOSE, BUN, CREATININE, CA)2022-05-29 15:33:06 Test Item Value Reference Range Interpretation Comments NA (test code = 139 mmol/L 135-145 4957408303) K (test code = 4.2 mmol/L 3.5-5.0 8205538262) CL (test code = 104 mmol/L 98-108 1989466589) CO2 TOTAL (test code = 29 mmol/L 23-31 0996095020) AGAP (test code = 6 2-16 4588163131) BUN (test code = 25 mg/dL 7-23 H 5777284730) GLUCOSE (test code = 85 mg/dL 70-110 4064083182) CREATININE (test code = 1.02 mg/dL 0.60-1.25 0961617397) CALCIUM (test code = 8.7 mg/dL 8.6-10.6 2193733016) eGFR (test code = 74.8 mL/min/1.73m2 5894642676) DEWAYNE (test code = DEWAYNE) Association of [...] tests). Lab Interpretation Abnormal (test code = 98363-7) [facility] METABOLIC PANEL (NA, K, CL, CO2, GLUCOSE, BUN, CREATININE, CA)2022-05-29 15:33:06 Test Item Value Reference Range Interpretation Comments NA (test code = 139 mmol/L 135-145 8295489182) K (test code = 4.2 mmol/L 3.5-5.0 2349656380) CL (test code = 104 mmol/L 98-108 8836805826) CO2 TOTAL (test code = 29 mmol/L 23-31 9022884062) AGAP (test code = 6 2-16 6786478380) BUN (test code = 25 mg/dL 7-23 H 6121409179) GLUCOSE (test code = 85 mg/dL 70-110 4712233235) CREATININE (test code = 1.02 mg/dL 0.60-1.25 1636403191) CALCIUM (test code = 8.7 mg/dL 8.6-10.6 9648633413) eGFR (test code = 74.8 mL/min/1.73m2 6838717359) DEWAYNE (test code = DEWAYNE) Association of [...] tests). Lab Interpretation Abnormal (test code = 22435-0) [facility] hospital2023-04-16 15:15:42 Test Item Value Reference Range Interpretation Comments Fibrinogen (test code = 0346354846) 368 mg/dL 167-453 Lab Interpretation (test code = Normal 68041-5) General acute hospital2023-04-16 15:15:42 Test Item Value Reference Range Interpretation Comments Fibrinogen (test code = 3251627750) 368 mg/dL 167-453 Lab Interpret[facility] (test code = Normal 84489-1[facility] Test Item Value Reference Range Interpretation Comments Fibrinogen (test code = 0021943468) 368 mg/dL 167-453 Lab Interpretation (test code = Normal 06648-2) [facility] Test Item Value Reference Range Interpretation Comments Fibrinogen (test code = 4268699409) 368 mg/dL 167-453 Lab Interpretation (test code = Normal 27170-3) [facility] WITH [id number] 15:09:40 Test Item Value Reference Range Interpretation Comments WBC (test code = 8.27 See_Comment [Automated 9890-2) message] The sy stem which generated this [...] RDW-SD (test code = 47.6 fL 38.5-51.6 29753-2) RDW-CV (test code = 14.7 % 12.1-15.4 788-0) PLT (test code = 252 See_Comment [Automated 777-3) message] The sy stem which generated this result transmitted reference range : 150 - 328 10*3/ ?L. The reference r mitra was not used to interpret this result as normal/abnormal . MPV (test code = 9.1 fL 9.8-13.0 L 01131-7) NRBC/100 WBC (test 0.0 See_Comment [Automat ed code = 5016000050) message] The system which generated this result transmitted reference range : 0.0 - 10.0 /100 WBCs. The refer ence range was not u sed to interpret th is result as normal/abnormal . NRBC x10^3 (test code See_Comment [Auto mated = 0322752934) message] The s ystem which generated this result transmitted reference range : 10*3/?L. The reference range was not used to interpret this result as normal/abnormal . GRAN MAT (NEUT) % 53.7 % (test code = 770-8) IMM GRAN % (test code 1.90 % = 6947480355) LYMPH % (test code = 29.6 % 736-9) MONO % (test code = 8.1 % 5905-5) EOS % (test code = 5.7 % 713-8) BASO % (test code = 1.0 % 706-2) GRAN MAT x10^3(ANC) 4.44 10*3/uL 1.99-6.95 (test code = 9819348607) IMM GRAN x10^3 (test 0.16 10*3/uL 0.00-0.06 H code = 2375333169) LYMPH x10^3 (test code 2.45 10*3/uL 1.09-3.23 = 731-0) MONO x10^3 (test code 0.67 10*3/uL 0.36-1.02 = 742-7) EOS x10^3 (test code = 0.47 10*3/uL 0.06-0.53 711-2) BASO x10^3 (test code 0.08 10*3/uL 0.01-0.09 = 704-7) Lab Interpretation Abnormal (test code = 46702-1) [facility] WITH [id number] 15:09:40 Test Item Value Reference Range Interpretation [...] RDW-SD (test code = 47.6 fL 38.5-51.6 54210-6) RDW-CV (test code = 14.7 % 12.1-15.4 788-0) PLT (test code = 252 See_Comment [Automated 777-3) message] The sy stem which generated this result transmitted reference range : 150 - 328 10*3/ ?L. The reference r mitra was not used to interpret this result as normal/abnormal . MPV (test code = 9.1 fL 9.8-13.0 L 43331-2) NRBC/100 WBC (test 0.0 See_Comment [Automat ed code = 0155611847) message] The system which generated this result transmitted reference range : 0.0 - 10.0 /100 WBCs. The refer ence range was not u sed to interpret th is result as normal/abnormal . NRBC x10^3 (test code See_Comment [Auto mated = 8877034017) message] The s ystem which generated this result transmitted reference range : 10*3/?L. The reference range was not used to interpret this result as normal/abnormal . GRAN MAT (NEUT) % 53.7 % (test code = 770-8) IMM GRAN % (test code 1.90 % = 0776214700) LYMPH % (test code = 29.6 % 736-9) MONO % (test code = 8.1 % 5905-5) EOS % (test code = 5.7 % 713-8) BASO % (test code = 1.0 % 706-2) GRAN MAT x10^3(ANC) 4.44 10*3/uL 1.99-6.95 (test code = 9315981482) IMM GRAN x10^3 (test 0.16 10*3/uL 0.00-0.06 H code = 3684221227) LYMPH x10^3 (test code 2.45 10*3/uL 1.09-3.23 = 731-0) MONO x10^3 (test code 0.67 10*3/uL 0.36-1.02 = 742-7) EOS x10^3 (test code = 0.47 10*3/uL 0.06-0.53 711-2) BASO x10^3 (test code 0.08 10*3/uL 0.01-0.09 = 704-7) Lab Interpretation Abnormal (test code = 74481-9) [facility] WITH [id number] 15:09:40 Test Item Value Reference Range Interpretation Comments WBC (test code = 8.27 See_Comment [Automated 9590-2) message] The sy stem which generated this result transmitted reference range : 4.20 - 10.70 10*3/?L. The reference range was not used to interpret this result as normal/abnormal . RBC (test code = 4.18 See_Comment L [Automated 579-8) message] The sy stem which generated this [...] RDW-SD (test code = 47.6 fL 38.5-51.6 01318-4) RDW-CV (test code = 14.7 % 12.1-15.4 788-0) PLT (test code = 252 See_Comment [Automated 777-3) message] The sy stem which generated this result transmitted reference range : 150 - 328 10*3/ ?L. The reference r mitra was not used to interpret this result as normal/abnormal . MPV (test code = 9.1 fL 9.8-13.0 L 32112-0) NRBC/100 WBC (test 0.0 See_Comment [Automat ed code = 8483859001) message] The system which generated this result transmitted reference range : 0.0 - 10.0 /100 WBCs. The refer ence range was not u sed to interpret th is result as normal/abnormal . NRBC x10^3 (test code See_Comment [Auto mated = 8577043857) message] The s ystem which generated this result transmitted reference range : 10*3/?L. The reference range was not used to interpret this result as normal/abnormal . GRAN MAT (NEUT) % 53.7 % (test code = 770-8) IMM GRAN % (test code 1.90 % = 1353454617) LYMPH % (test code = 29.6 % 736-9) MONO % (test code = 8.1 % 5905-5) EOS % (test code = 5.7 % 713-8) BASO % (test code = 1.0 % 706-2) GRAN MAT x10^3(ANC) 4.44 10*3/uL 1.99-6.95 (test code = 4506122695) IMM GRAN x10^3 (test 0.16 10*3/uL 0.00-0.06 H code = 8154364274) LYMPH x10^3 (test code 2.45 10*3/uL 1.09-3.23 = 731-0) MONO x10^3 (test code 0.67 10*3/uL 0.36-1.02 = 742-7) EOS x10^3 (test code = 0.47 10*3/uL 0.06-0.53 711-2) BASO x10^3 (test code 0.08 10*3/uL 0.01-0.09 = 704-7) Lab Interpretation Abnormal (test code = 68765-7) [facility] WITH [id number] 15:09:40 Test Item Value Reference Range Interpretation [...] RDW-SD (test code = 47.6 fL 38.5-51.6 53285-8) RDW-CV (test code = 14.7 % 12.1-15.4 788-0) PLT (test code = 252 See_Comment [Automated 777-3) message] The sy stem which generated this result transmitted reference range : 150 - 328 10*3/ ?L. The reference r mitra was not used to interpret this result as normal/abnormal . MPV (test code = 9.1 fL 9.8-13.0 L 52982-2) NRBC/100 WBC (test 0.0 See_Comment [Automat ed code = 8926121310) message] The system which generated this result transmitted reference range : 0.0 - 10.0 /100 WBCs. The refer ence range was not u sed to interpret th is result as normal/abnormal . NRBC x10^3 (test code See_Comment [Auto mated = 5968303464) message] The s [employer] which generated this result transmitted reference range : 10*3/?L. The reference range was not used to interpret this result as normal/abnormal . GRAN MAT (NEUT) % 53.7 % (test code = 770-8) IMM GRAN % (test code 1.90 % = 7162586454) LYMPH % (test code = 29.6 % 736-9) MONO % (test code = 8.1 % 5905-5) EOS % (test code = 5.7 % 713-8) BASO % (test code = 1.0 % 706-2) GRAN MAT x10^3(ANC) 4.44 10*3/uL 1.99-6.95 (test code = 0652698288) IMM GRAN x10^3 (test 0.16 10*3/uL 0.00-0.06 H code = 3991209040) LYMPH x10^3 (test code 2.45 10*3/uL 1.09-3.23 = 731-0) MONO x10^3 (test code 0.67 10*3/uL 0.36-1.02 = 742-7) EOS x10^3 (test code = 0.47 10*3/uL 0.06-0.53 711-2) BASO x10^3 (test code 0.08 10*3/uL 0.01-0.09 = 704-7) Lab Interpretation Abnormal (test code = 17858-6) [facility] (for use with Heparin Infusion)2022-05-29 11:36:15 Test Item Value Reference Range Interpretation Comments APTT Patient (test code 52 See_Comment H [Au tomated message] = 0333-2) The system [employer] generated this result transmitted ref erence range: 26 - 36 Seconds. The reference range was not used to int erpret this result as normal/abnormal . Lab Interpretation (test Abnormal code = 37618-8) [facility] (for use with Heparin Infusion)2022-05-29 11:36:15 Test Item Value Reference Range Interpretation Comments APTT Patient (test code 52 See_Comment H [Au tomated message] = 3173-2) The system [employer] generated this result transmitted ref erence range: 26 - 36 Seconds. The reference range was not used to int erpret this result as normal/abnormal . Lab Interpretation (test Abnormal code = 42534-8) [facility] (for use with Heparin Infusion)2022-05-29 11:36:15 Test Item Value Reference Range Interpretation Comments APTT Patient (test code 52 See_Comment H [Au tomated message] = 3173-2) The system [employer] generated this result transmitted ref erence range: 26 - 36 Seconds. The reference range was not used to int erpret this result as normal/abnormal . Lab Interpretation (test Abnormal code = 39978-1) [facility] (for use with Heparin Infusion)2022-05-29 11:36:15 Test Item Value Reference Range Interpretation Comments APTT Patient (test code 52 See_Comment H [Au tomated message] = 3173-2) The system [employer] generated this result transmitted ref erence range: 26 - 36 Seconds. The reference range was not used to int erpret this result as normal/abnormal . Lab Interpretation (test Abnormal code = 38317-8) [facility] METABOLIC PANEL (NA, K, CL, CO2, GLUCOSE, BUN, CREATININE, CA)2022-05-29 11:35:55 Test Item Value Reference Range Interpretation Comments NA (test code = 136 mmol/L 135-145 3263323547) K (test code = 4.9 mmol/L 3.5-5.0 Slight 3543144894) hemolysis CL (test code = 106 mmol/L 98-108 8394250877) CO2 TOTAL (test code 28 mmol/L 23-31 = 4531967369) AGAP (test code = 2 2-16 7986640316) BUN (test code = 26 mg/dL 7-23 H Slight 9420966569) hemolysis GLUCOSE (test code = 88 mg/dL 70-110 9535599945) CREATININE (test code 0.86 mg/dL 0.60-1.25 = 8317033383) CALCIUM (test code = 8.4 mg/dL 8.6-10.6 L 9429778793) eGFR (test code = 91.0 mL/min/1.73m2 5585446771) DEWAYNE (test code = DEWAYNE) Association of [...] tests). Lab Interpretation Abnormal (test code = 57782-2) [facility] Test Item Value Reference Range Interpretation Comments MAGNESIUM (test code = 3971382464) 2.4 mg/dL 1.7-2.4 Lab Interpretation (test code = Normal 02666-7) [facility] (NA, K, CL, CO2, GLUCOSE, BUN, CREATININE, CA)2022-05-29 11:35:55 Test Item Value Reference Range Interpretation Comments NA (test code = 136 mmol/L 135-145 2428886592) K (test code = 4.9 mmol/L 3.5-5.0 Slight 3593458806) hemolysis CL (test code = 106 mmol/L 98-108 8501743259) CO2 TOTAL (test code 28 mmol/L 23-31 = 0185223063) AGAP (test code = 2 2-16 6984345968) BUN (test code = 26 mg/dL 7-23 H Slight 1978328199) hemolysis GLUCOSE (test code = 88 mg/dL 70-110 1122092125) CREATININE (test code 0.86 mg/dL 0.60-1.25 = 3913724172) CALCIUM (test code = 8.4 mg/dL 8.6-10.6 L 2731152915) eGFR (test code = 91.0 mL/min/1.73m2 4750672793) DEWAYNE (test code = DEWAYNE) Association of [...] tests). Lab Interpretation Abnormal (test code = 95424-0) [facility] 11:35:55 Test Item Value Reference Range Interpretation Comments MAGNESIUM (test code = 0788431859) 2.4 mg/dL 1.7-2.4 Lab Interpretation (test code = Normal 38536-9) [facility] METABOLIC PANEL (NA, K, CL, CO2, GLUCOSE, BUN, CREATININE, CA)2022-05-29 11:35:55 Test Item Value Reference Range Interpretation Comments NA (test code = 136 mmol/L 135-145 0799322886) K (test code = 4.9 mmol/L 3.5-5.0 Slight 0267959764) hemolysis CL (test code = 106 mmol/L 98-108 8324132564) CO2 TOTAL (test code 28 mmol/L 23-31 = 2127144658) AGAP (test code = 2 2-16 2253665995) BUN (test code = 26 mg/dL 7-23 H Slight 6933455828) hemolysis GLUCOSE (test code = 88 mg/dL 70-110 9817423507) CREATININE (test code 0.86 mg/dL 0.60-1.25 = 4106261447) CALCIUM (test code = 8.4 mg/dL 8.6-10.6 L 0738529336) eGFR (test code = 91.0 mL/min/1.73m2 6446512787) DEWAYNE (test code = DEWAYNE) Association of [...] tests). Lab Interpretation Abnormal (test code = 22801-2) [facility] 11:35:55 Test Item Value Reference Range Interpretation Comments MAGNESIUM (test code = 3893575615) 2.4 mg/dL 1.7-2.4 Lab Interpretation (test code = Normal 20925-7) [facility] (NA, K, CL, CO2, GLUCOSE, BUN, CREATININE, CA)2022-05-29 11:35:55 Test Item Value Reference Range Interpretation Comments NA (test code = 136 mmol/L 135-145 1696102769) K (test code = 4.9 mmol/L 3.5-5.0 Slight 2913506994) hemolysis CL (test code = 106 mmol/L 98-108 9232694619) CO2 TOTAL (test code 28 mmol/L 23-31 = 7431260119) AGAP (test code = 2 2-16 5518658453) BUN (test code = 26 mg/dL 7-23 H Slight 2888216864) hemolysis GLUCOSE (test code = 88 mg/dL 70-110 4152544105) CREATININE (test code 0.86 mg/dL 0.60-1.25 = 1333283964) CALCIUM (test code = 8.4 mg/dL 8.6-10.6 L 7503353330) eGFR (test code = 91.0 mL/min/1.73m2 6719942570) DEWAYNE (test code = DEWAYNE) Association of [...] tests). Lab Interpretation Abnormal (test code = 74031-1) [facility] 11:35:55 Test Item Value Reference Range Interpretation Comments MAGNESIUM (test code = 0672428811) 2.4 mg/dL 1.7-2.4 Lab Interpretation (test code = Normal 77290-1) [facility] [id number] 11:28:31 Test Item Value Reference Range Interpretation Comments WBC (test code = 6690-2) 7.81 See_Comment [A utomated message] The system [employer] generated this result transmit elizabeth reference range : 4.20 - 10.70 10*3/?L. The reference range was not used to interpret this result as normal/abnormal . RBC (test code = 789-8) 4.04 See_Comment L [Au tomated message] The system [employer] generated this result transmit elizabeth reference range [...] 252 See_Comment [Au tomated message] The system [employer] generated this result transmit elizabeth reference range : 150 - 328 10*3/?L. The reference range was not used to interpret this result as normal/abnormal . MPV (test code = 9.6 fL 9.8-13.0 L 88872-9) RDW-CV (test code = 14.6 % 12.1-15.4 788-0) RDW-SD (test code = 46.5 fL 38.5-51.6 54386-6) NRBC x10^3 (test code = See_Comment [Au tomated message] 4138964131) The system [employer] generated this result transmit elizabeth reference range : 10*3/?L. The reference range was not used to interpret this result as normal/abnormal . NRBC/100 WBC (test code 0.0 See_Comment [Au tomated message] = 9567149356) The system [facility] generated this result transmit elizabeth reference range : 0.0 - 10.0 /100 WBC s. The reference r mitra was not used to interpret this result as normal/abnormal . IPF % (test code = 3340123563) Lab Interpretation (test Abnormal code = 39916-7) [facility] Without [id number] 11:28:31 Test Item Value Reference Range Interpretation Comments WBC (test code = 6690-2) 7.81 See_Comment [A utomated message] The system [employer] generated this result transmit elizabeth reference range : 4.20 - 10.70 10*3/?L. The reference range was not used to interpret this result as normal/abnormal . RBC (test code = 789-8) 4.04 See_Comment L [Au tomated message] The system [employer] generated this result transmit elizabeth reference [...] 252 See_Comment [Au tomated message] The system [facility] generated this result transmit elizabeth reference range : 150 - 328 10*3/?L. The reference range was not used to interpret this result as normal/abnormal . MPV (test code = 9.6 fL 9.8-13.0 L 25535-8) RDW-CV (test code = 14.6 % 12.1-15.4 788-0) RDW-SD (test code = 46.5 fL 38.5-51.6 68552-0) NRBC x10^3 (test code = See_Comment [Au tomated message] 5718176787) The system [employer] generated this result transmit elizabeth reference range : 10*3/?L. The reference range was not used to interpret this result as normal/abnormal . NRBC/100 WBC (test code 0.0 See_Comment [Au tomated message] = 1052561832) The system [facility] generated this result transmit elizabeth reference range : 0.0 - 10.0 /100 WBC s. The reference r mitra was not used to interpret this result as normal/abnormal . IPF % (test code = 0409771995) Lab Interpretation (test Abnormal code = 28328-9) [facility] Without [id number] 11:28:31 Test Item Value Reference Range Interpretation Comments WBC (test code = 6690-2) 7.81 See_Comment [A utomated message] The system [facility] [employer] generated this result transmit elizabeth reference range : 4.20 - 10.70 10*3/?L. The reference range was not used to interpret this result as normal/abnormal . RBC (test code = 789-8) 4.04 See_Comment L [Au tomated message] The system [facility] [employer] generated this result transmit elizabeth reference range [...] 252 See_Comment [Au tomated message] The system [facility] generated this result transmit elizabeth reference range : 150 - 328 10*3/?L. The reference range was not used to interpret this result as normal/abnormal . MPV (test code = 9.6 fL 9.8-13.0 L 61433-4) RDW-CV (test code = 14.6 % 12.1-15.4 788-0) RDW-SD (test code = 46.5 fL 38.5-51.6 18655-6) NRBC x10^3 (test code = See_Comment [Au tomated message] 0858790008) The system [employer] generated this result transmit elizabeth reference range : 10*3/?L. The reference range was not used to interpret this result as normal/abnormal . NRBC/100 WBC (test code 0.0 See_Comment [Au tomated message] = 6414517173) The system [facility] generated this result transmit elizabeth reference range : 0.0 - 10.0 /100 WBC s. The reference r mitra was not used to interpret this result as normal/abnormal . IPF % (test code = [id number]) Lab Interpretation (test Abnormal code = 03293-6) [facility] Without [id number] 11:28:31 Test Item Value Reference Range Interpretation Comments WBC (test code = 6690-2) 7.81 See_Comment [A utomated message] The system [employer] generated this result transmit elizabeth reference range : 4.20 - 10.70 10*3/?L. The reference range was not used to interpret this result as normal/abnormal . RBC (test code = 789-8) 4.04 See_Comment L [Au tomated message] The system [employer] generated this result transmit elizabeth reference range [...] 252 See_Comment [Au tomated message] The system [employer] generated this result transmit elizabeth reference range : 150 - 328 10*3/?L. The reference range was not used to interpret this result as normal/abnormal . MPV (test code = 9.6 fL 9.8-13.0 L 82160-7) RDW-CV (test code = 14.6 % 12.1-15.4 788-0) RDW-SD (test code = 46.5 fL 38.5-51.6 64707-1) NRBC x10^3 (test code = See_Comment [Au tomated message] [id number]) The system [employer] generated this result transmit elizabeth reference range : 10*3/?L. The reference range was not used to interpret this result as normal/abnormal . NRBC/100 WBC (test code 0.0 See_Comment [Au tomated message] = 9178898000) The system [employer] generated this result transmit elizabeth reference range : 0.0 - 10.0 /100 WBC s. The reference r mitra was not used to interpret this result as normal/abnormal . 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 Mutation Tested: F2 c.11007Z>A (S75749U). Clinical Sensitivity for Venous Thrombosis: Approximately 10%. Methodology: Polymerase chain reaction and fluorescence monitoring Limitations: The performance of this assay has not been evaluated with samples from pediatric patients. Counseling and informed consent are recommended for genetic testing. References: OMIM: 257006 https://ghr.nlm.nih.gov/c ondition/prothrombin-thro mbophilia [facility] PZJDVL5225-44-92 18:45:15 Test Item Value Reference Range Interpretation Comments FACTOR 5 LEIDEN Heterozygous Normal (test code = 0487758866) DEWAYNE (test code = Phenotype Characteristics: DEWAYNE) [...] the Factor 5 Leiden mutation is c.1601G>A (p.Nrs857Ltl). Methodology: Polymerase chain reaction and fluorescence monitoring. Limitations: Rare Factor V mutations (Q9445V, V1381E, and T2513F) and any additional SNPs in the probe binding region may interfere with the target detection and yield an INVALID result. The performance of this assay has not been evaluated with samples from pediatric patients. Counseling and informed consent are recommended for genetic testing. References: OMIM: 454829 https://ghr.nlm.nih.gov/co ndition/bxfdwz-v-axlllg-th rombophilia [facility] I47531S [id number] 18:45:15 Test Item Value Reference Range Interpretation Comments Factor 2 U25470U Heterozygous Normal Mutation (test code = 2947545469) DEWAYNE (test code = Phenotype DEWAYNE) Characteristics: [...] further increased for homozygotes. Mutation Tested: F2 c.49592O>A (O88940H). Clinical Sensitivity for Venous Thrombosis: Approximately 10%. Methodology: Polymerase chain reaction and fluorescence monitoring Limitations: The performance of this assay has not been evaluated with samples from pediatric patients. Counseling and informed consent are recommended for genetic testing. References: OMIM: 699241 https://ghr.nlm.nih.gov/c ondition/prothrombin-thro mbophilia [facility] [id number] 18:45:15 Test Item Value Reference Range Interpretation Comments FACTOR 5 LEIDEN Heterozygous Normal (test code = 1774312549) DEWAYNE (test code = Phenotype Characteristics: DEWAYNE) [...] the Factor 5 Leiden mutation is c.1601G>A (p.Ujn314Xxr). Methodology: Polymerase chain reaction and fluorescence monitoring. Limitations: Rare Factor V mutations (N7574F, U6928N, and G1670R) and any additional SNPs in the probe binding region may interfere with the target detection and yield an INVALID result. The performance of this assay has not been evaluated with samples from pediatric patients. Counseling and informed consent are recommended for genetic testing. References: OMIM: 517062 https://ghr.nlm.nih.gov/co ndition/peufcn-t-ljlodq-th rombophilia [facility] V96603L [id number] 18:45:15 Test Item Value Reference Range Interpretation Comments Factor 2 W11462V Heterozygous Normal Mutation (test code = 9064180340) DEWAYNE (test code = Phenotype DEWAYNE) Characteristics: [...] further increased for homozygotes. Mutation Tested: F2 c.89843D>A (F38098J). Clinical Sensitivity for Venous Thrombosis: Approximately 10%. Methodology: Polymerase chain reaction and fluorescence monitoring Limitations: The performance of this assay has not been evaluated with samples from pediatric patients. Counseling and informed consent are recommended for genetic testing. References: OMIM: 574364 https://ghr.nlm.nih.gov/c ondition/prothrombin-thro mbophilia [facility] QWTGKH2852-77-76 18:45:15 Test Item Value Reference Range Interpretation Comments FACTOR 5 LEIDEN Heterozygous Normal (test code = 7482418913) DEWAYNE (test code = Phenotype Characteristics: DEWAYNE) [...] the Factor 5 Leiden mutation is c.1601G>A (p.Wmq132Uwj). Methodology: Polymerase chain reaction and fluorescence monitoring. Limitations: Rare Factor V mutations (U1947Y, J4299M, and Y8723Z) and any additional SNPs in the probe binding region may interfere with the target detection and yield an INVALID result. The performance of this assay has not been evaluated with samples from pediatric patients. Counseling and informed consent are recommended for genetic testing. References: OMIM: 653635 https://ghr.nlm.nih.gov/co ndition/eznqud-k-agguwt-th rombophilia [facility] U89653B [id number] 18:45:15 Test Item Value Reference Range Interpretation Comments Factor 2 Q76012D Heterozygous Normal Mutation (test code = 6520244103) DEWAYNE (test code = Phenotype DEWAYNE) Characteristics: [...] further increased for homozygotes. Mutation Tested: F2 c.98518Z>A (U98968T). Clinical Sensitivity for Venous Thrombosis: Approximately 10%. Methodology: Polymerase chain reaction and fluorescence monitoring Limitations: The performance of this assay has not been evaluated with samples from pediatric patients. Counseling and informed consent are recommended for genetic testing. References: OMIM: 272679 https://ghr.nlm.nih.gov/c ondition/prothrombin-thro mbophilia [facility] GZCEPQ4769-70-84 18:45:15 Test Item Value Reference Range Interpretation Comments FACTOR 5 LEIDEN Heterozygous Normal (test code = 4598409513) DEWAYNE (test code = Phenotype Characteristics: DEWAYNE) [...] the Factor 5 Leiden mutation is c.1601G>A (p.Zth448Rae). Methodology: Polymerase chain reaction and fluorescence monitoring. Limitations: Rare Factor V mutations (Y6872Y, T0619R, and A7801L) and any additional SNPs in the probe binding region may interfere with the target detection and yield an INVALID result. The performance of this assay has not been evaluated with samples from pediatric patients. Counseling and informed consent are recommended for genetic testing. References: OMIM: 677502 https://ghr.nlm.nih.gov/co ndition/fzrjou-d-pzsbpu-th dandre [facility] METABOLIC PANEL (NA, K, CL, CO2, GLUCOSE, BUN, CREATININE, CA)2022-05-28 09:52:42 Test Item Value Reference Range Interpretation Comments NA (test code = 137 mmol/L 135-145 4213123609) K (test code = 3.8 mmol/L 3.5-5.0 6407786377) CL (test code = 103 mmol/L 98-108 2818392114) CO2 TOTAL (test code = 27 mmol/L 23-31 7908485627) AGAP (test code = 7 2-16 0102935847) BUN (test code = 27 mg/dL 7-23 H 4448264466) GLUCOSE (test code = 105 mg/dL 70-110 3084779108) CREATININE (test code = 0.84 mg/dL 0.60-1.25 9534687105) CALCIUM (test code = 8.5 mg/dL 8.6-10.6 L 7777068505) eGFR (test code = 93.5 mL/min/1.73m2 9963519591) DEWAYNE (test code = DEWAYNE) Association of [...] tests). Lab Interpretation Abnormal (test code = 05544-2) [facility] (NA, K, CL, CO2, GLUCOSE, BUN, CREATININE, CA)2022-05-28 09:52:42 Test Item Value Reference Range Interpretation Comments NA (test code = 137 mmol/L 135-145 4503899814) K (test code = 3.8 mmol/L 3.5-5.0 7232867152) CL (test code = 103 mmol/L 98-108 3368830177) CO2 TOTAL (test code = 27 mmol/L 23-31 1809950672) AGAP (test code = 7 2-16 6273603879) BUN (test code = 27 mg/dL 7-23 H 1829697794) GLUCOSE (test code = 105 mg/dL 70-110 1517857257) CREATININE (test code = 0.84 mg/dL 0.60-1.25 1276935681) CALCIUM (test code = 8.5 mg/dL 8.6-10.6 L 6713500501) eGFR (test code = 93.5 mL/min/1.73m2 7222640750) DEWAYNE (test code = DEWAYNE) Association of [...] tests). Lab Interpretation Abnormal (test code = 27404-8) [facility] METABOLIC PANEL (NA, K, CL, CO2, GLUCOSE, BUN, CREATININE, CA)2022-05-28 09:52:42 Test Item Value Reference Range Interpretation Comments NA (test code = 137 mmol/L 135-145 0519148594) K (test code = 3.8 mmol/L 3.5-5.0 5173348332) CL (test code = 103 mmol/L 98-108 2038016632) CO2 TOTAL (test code = 27 mmol/L 23-31 1704080287) AGAP (test code = 7 2-16 5944291589) BUN (test code = 27 mg/dL 7-23 H 8941444389) GLUCOSE (test code = 105 mg/dL 70-110 1915083262) CREATININE (test code = 0.84 mg/dL 0.60-1.25 1464370254) CALCIUM (test code = 8.5 mg/dL 8.6-10.6 L 9836644610) eGFR (test code = 93.5 mL/min/1.73m2 3666098211) DEWAYNE (test code = DEWAYNE) Association of [...] tests). Lab Interpretation Abnormal (test code = 47224-1) [facility] (NA, K, CL, CO2, GLUCOSE, BUN, CREATININE, CA)2022-05-28 09:52:42 Test Item Value Reference Range Interpretation Comments NA (test code = 137 mmol/L 135-145 0977080998) K (test code = 3.8 mmol/L 3.5-5.0 7311004834) CL (test code = 103 mmol/L 98-108 5612246813) CO2 TOTAL (test code = 27 mmol/L 23-31 8777808291) AGAP (test code = 7 2-16 8060941890) BUN (test code = 27 mg/dL 7-23 H 1143771103) GLUCOSE (test code = 105 mg/dL 70-110 9892864283) CREATININE (test code = 0.84 mg/dL 0.60-1.25 5693670414) CALCIUM (test code = 8.5 mg/dL 8.6-10.6 L 7460254916) eGFR (test code = 93.5 mL/min/1.73m2 5484639888) DEWAYNE (test code = DEWAYNE) Association of [...] tests). Lab Interpretation Abnormal (test code = 94932-3) [facility] WITH [id number] 09:29:20 Test Item Value Reference Range Interpretation Comments WBC (test code = 8.34 See_Comment [Automated 9474-2) message] The sy stem which generated this result transmitted reference range : 4.20 - 10.70 10*3/?L. The reference range was not used to interpret this result as normal/abnormal . RBC (test code = 4.08 See_Comment L [Automated 720-8) message] The sy stem which generated this [...] RDW-SD (test code = 44.7 fL 38.5-51.6 09721-5) RDW-CV (test code = 14.5 % 12.1-15.4 788-0) PLT (test code = 199 See_Comment [Automated 777-3) message] The sy stem which generated this result transmitted reference range : 150 - 328 10*3/ ?L. The reference r mitra was not used to interpret this result as normal/abnormal . MPV (test code = 9.3 fL 9.8-13.0 L 07614-3) NRBC/100 WBC (test 0.0 See_Comment [Automat ed code = 6291599851) message] The system which generated this result transmitted reference range : 0.0 - 10.0 /100 WBCs. The refer ence range was not u sed to interpret th is result as normal/abnormal . NRBC x10^3 (test code See_Comment [Auto mated = 9273716837) message] The s ystem which generated this result transmitted reference range : 10*3/?L. The reference range was not used to interpret this result as normal/abnormal . GRAN MAT (NEUT) % 56.1 % (test code = 770-8) IMM GRAN % (test code 1.20 % = 2175319775) LYMPH % (test code = 30.8 % 736-9) MONO % (test code = 7.6 % 5905-5) EOS % (test code = 3.7 % 713-8) BASO % (test code = 0.6 % 706-2) GRAN MAT x10^3(ANC) 4.68 10*3/uL 1.99-6.95 (test code = 5372848230) IMM GRAN x10^3 (test 0.10 10*3/uL 0.00-0.06 H code = 2582715922) LYMPH x10^3 (test code 2.57 10*3/uL 1.09-3.23 = 731-0) MONO x10^3 (test code 0.63 10*3/uL 0.36-1.02 = 742-7) EOS x10^3 (test code = 0.31 10*3/uL 0.06-0.53 711-2) BASO x10^3 (test code 0.05 10*3/uL 0.01-0.09 = 704-7) Lab Interpretation Abnormal (test code = 58575-7) [facility] WITH [id number] 09:29:20 Test Item Value Reference Range Interpretation [...] RDW-SD (test code = 44.7 fL 38.5-51.6 30536-3) RDW-CV (test code = 14.5 % 12.1-15.4 788-0) PLT (test code = 199 See_Comment [Automated 777-3) message] The sy stem which generated this result transmitted reference range : 150 - 328 10*3/ ?L. The reference r mitra was not used to interpret this result as normal/abnormal . MPV (test code = 9.3 fL 9.8-13.0 L 32682-4) NRBC/100 WBC (test 0.0 See_Comment [Automat ed code = 7896499361) message] The system which generated this result transmitted reference range : 0.0 - 10.0 /100 WBCs. The refer ence range was not u sed to interpret th is result as normal/abnormal . NRBC x10^3 (test code See_Comment [Auto mated = 1696031843) message] The s ystem which generated this result transmitted reference range : 10*3/?L. The reference range was not used to interpret this result as normal/abnormal . GRAN MAT (NEUT) % 56.1 % (test code = 770-8) IMM GRAN % (test code 1.20 % = 3544081949) LYMPH % (test code = 30.8 % 736-9) MONO % (test code = 7.6 % 5905-5) EOS % (test code = 3.7 % 713-8) BASO % (test code = 0.6 % 706-2) GRAN MAT x10^3(ANC) 4.68 10*3/uL 1.99-6.95 (test code = 1043086893) IMM GRAN x10^3 (test 0.10 10*3/uL 0.00-0.06 H code = 6770656573) LYMPH x10^3 (test code 2.57 10*3/uL 1.09-3.23 = 731-0) MONO x10^3 (test code 0.63 10*3/uL 0.36-1.02 = 742-7) EOS x10^3 (test code = 0.31 10*3/uL 0.06-0.53 711-2) BASO x10^3 (test code 0.05 10*3/uL 0.01-0.09 = 704-7) Lab Interpretation Abnormal (test code = 01438-2) [facility] WITH [id number] 09:29:20 Test Item Value Reference Range Interpretation Comments WBC (test code = 8.34 See_Comment [Automated 2811-2) message] The sy stem which generated this result transmitted reference range : 4.20 - 10.70 10*3/?L. The reference range was not used to interpret this result as normal/abnormal . RBC (test code = 4.08 See_Comment L [Automated 119-8) message] The sy stem which generated this [...] RDW-SD (test code = 44.7 fL 38.5-51.6 08249-4) RDW-CV (test code = 14.5 % 12.1-15.4 788-0) PLT (test code = 199 See_Comment [Automated 777-3) message] The sy stem which generated this result transmitted reference range : 150 - 328 10*3/ ?L. The reference r mitra was not used to interpret this result as normal/abnormal . MPV (test code = 9.3 fL 9.8-13.0 L 81771-1) NRBC/100 WBC (test 0.0 See_Comment [Automat ed code = 8763107016) message] The system which generated this result transmitted reference range : 0.0 - 10.0 /100 WBCs. The refer ence range was not u sed to interpret th is result as normal/abnormal . NRBC x10^3 (test code See_Comment [Auto mated = 9016113931) message] The s ystem which generated this result transmitted reference range : 10*3/?L. The reference range was not used to interpret this result as normal/abnormal . GRAN MAT (NEUT) % 56.1 % (test code = 770-8) IMM GRAN % (test code 1.20 % = 0880504352) LYMPH % (test code = 30.8 % 736-9) MONO % (test code = 7.6 % 5905-5) EOS % (test code = 3.7 % 713-8) BASO % (test code = 0.6 % 706-2) GRAN MAT x10^3(ANC) 4.68 10*3/uL 1.99-6.95 (test code = 0379144973) IMM GRAN x10^3 (test 0.10 10*3/uL 0.00-0.06 H code = 7239246658) LYMPH x10^3 (test code 2.57 10*3/uL 1.09-3.23 = 731-0) MONO x10^3 (test code 0.63 10*3/uL 0.36-1.02 = 742-7) EOS x10^3 (test code = 0.31 10*3/uL 0.06-0.53 711-2) BASO x10^3 (test code 0.05 10*3/uL 0.01-0.09 = 704-7) Lab Interpretation Abnormal (test code = 24701-0) [facility] WITH [id number] 09:29:20 Test Item Value Reference Range Interpretation Comments WBC (test code = 8.34 See_Comment [Automated 5490-2) message] The sy stem which generated this result transmitted reference range : 4.20 - 10.70 10*3/?L. The reference range was not used to interpret this result as normal/abnormal . RBC (test code = 4.08 See_Comment L [Automated 289-8) message] The sy [...] RDW-SD (test code = 44.7 fL 38.5-51.6 08281-9) RDW-CV (test code = 14.5 % 12.1-15.4 788-0) PLT (test code = 199 See_Comment [Automated 777-3) message] The sy stem which generated this result transmitted reference range : 150 - 328 10*3/ ?L. The reference r mitra was not used to interpret this result as normal/abnormal . MPV (test code = 9.3 fL 9.8-13.0 L 53470-6) NRBC/100 WBC (test 0.0 See_Comment [Automat ed code = 6476350526) message] The system which generated this result transmitted reference range : 0.0 - 10.0 /100 WBCs. The refer ence range was not u sed to interpret th is result as normal/abnormal . NRBC x10^3 (test code See_Comment [Auto mated = 7052911144) message] The s ystem which generated this result transmitted reference range : 10*3/?L. The reference range was not used to interpret this result as normal/abnormal . GRAN MAT (NEUT) % 56.1 % (test code = 770-8) IMM GRAN % (test code 1.20 % = 9473106048) LYMPH % (test code = 30.8 % 736-9) MONO % (test code = 7.6 % 5905-5) EOS % (test code = 3.7 % 713-8) BASO % (test code = 0.6 % 706-2) GRAN MAT x10^3(ANC) 4.68 10*3/uL 1.99-6.95 (test code = 0977420834) IMM GRAN x10^3 (test 0.10 10*3/uL 0.00-0.06 H code = 3456683353) LYMPH x10^3 (test code 2.57 10*3/uL 1.09-3.23 = 731-0) MONO x10^3 (test code 0.63 10*3/uL 0.36-1.02 = 742-7) EOS x10^3 (test code = 0.31 10*3/uL 0.06-0.53 711-2) BASO x10^3 (test code 0.05 10*3/uL 0.01-0.09 = 704-7) Lab Interpretation Abnormal (test code = 04685-2) [facility] [id number] 04:20:00 Test Item Value Reference Interpretation Comments Range Levetiracetam 4.1 ug/mL 10.0-40.0 A This test was developed and Zhen (Keppra) (test its perfor fritz code = KELYNN.L) characteris ticsdetermined by [facility]. It has not been cleared orappro mannie by the Food and Drug Administration. Performed at: [facility] [address] [place], [place] [id number] Di shahid: Miriam Sevilla MD, Ph one: [phone] Drug Screen,[id number] 20:40:00 Test Item Value Reference Range Interpretation [...] Negative Negative code = UPROP) Comprehensive Metabolic Fxnbu0860-82-61 19:50:00 Test Item Value Reference Range Interpretation [...] 47 U/L 46-116 N = ALP) Troponin [id number] 19:50:00 Test Item Value Reference Range Interpretation [...] 99th percentile in serialmeasureme nts. Prothrombin Time [id number] 19:50:00 Test Item Value Reference Range Interpretation Comments Prothrombin Time (test code = 10.9 Seconds 9.8-13.4 N PT) INR (test code = INR) 1.0 ratio 0.6-1.2 N Partial Thromboplastin [id number] 19:50:00 Test Item Value Reference Range Interpretation Comments Partial Thromboplastin Time 20.00 Seconds 24.39-37.25 L (test code = PTT) Complete Blood Count Auto [id number] 19:50:00 Test Item Value Reference Range Interpretation [...] code = NRBCP) 0 % B-Type Natriuretic Cfcasdr4477-23-00 19:50:00 Test Item Value Reference Range Interpretation Comments B-Type Natriuretic Peptide (test 30.2 pg/mL 0.0-99.9 N code = BNP) SARS-CoV-2 (COVID-19) RNA [Presence] in Respiratory specimen by COOPER with probe eogxtxdrc1560-62-43 03:31:41 Test Item Value Reference Range Interpretation Comments SARS-CoV-2 (COVID-19) RNA Not detected Not-Detected [Presence] in Respiratory specimen by COOPER with probe detection (test code = 45691-8) ENG [facility]LIM [facility] Ycpgc4000-26-02 20:19:00 Test Item Value Reference Range Interpretation [...] ://nkd ep.nih.gov CT HEAD OR BRAIN WO KOPTYVVI5941-28-09 18:19:40Location code: R 15HISTORY: Intracranial hemorrhageCOMPARISON: None.TECHNIQUE: [...] Unremarkable nonenhanced CT scan of the brain.Ammonia, Blyzl0146-91-12 12:35:00 Test Item Value Reference Range Interpretation Comments Ammonia (test code = NH3) 25.0 umol/L 11.0-35.0 N US DUPLX EXT VEINS COMPRS, [id number] 15:35:40ULTRASOUND: Bilateral lower extremity venous duplex sonography.History: [...] An IVC filter is in place.Impression:Unremarkable exam.Glycosylated Ikdusxvtaq6463-73-03 10:36:00 Test Item Value Reference Range Interpretation Comments HBA1c (test code = HBA1C) 5.1 % 4.8-5.9 N RPR, [id number] 12:10:00 Test Item Value Reference Range Interpretation Comments RPR (test code = RPR) Non-Reactive Non-Reactive N Thyroid Stimulating Hormone (TSH)2016-12-24 06:02:00 Test Item Value Reference Range Interpretation Comments TSH (test code = TSH) 1.03 mIU/mL 0.270-4.200 N Lipid Mltvzjo0248-41-45 05:53:00 Test Item Value Reference Range Interpretation Comments Cholesterol (test 205 mg/dL 0-200 H code = CHOL) Triglycerides (test 69 mg/dL 9-200 N code = TRIG) HDL (test code = 68 mg/dL 40-60 H HDL) Chol/HDL (test code 3.0 Ratio 0.0-5.0 N = CHOLPHDL) LDL, Calculated 123 0-130 N (NOTE)RISK O F HEART (test code = LDLC) DISEASEPu blished by [place] Heart AssociationAnal yte Optimal Boderli ne Increased RiskC HOL <200 200-239 >240TRI G <150 150-199 >200HDL Male: >60 <40HDL Fem saleem: >60 <50LDL < 100 130-159 >160LDL NEAR OPTIMAL IS 100- 129 VLDL (test code = 14 mg/dL 5-40 N VLDL) LDL/HDL (test code = 2 LDLPHDL) Comprehensive Metabolic Qzjnc5458-12-47 18:42:00 Test Item Value Reference Range Interpretation [...] is not provided , and the patient isMainor-Katerina can, multiply by 1.2 12. If sex [...] National Kid[employer] Foundation,http ://nkd ep.nih.gov CBC with Dqryofntnsaw9725-13-41 17:59:00 Test Item Value Reference Range Interpretation [...] code = ALYMPH) 1.4 K/cumm 0.5-4.6 N [place] Abs (test code = AMONO) 0.9 K/cumm 0.0-1.2 N Eos Abs (test code = AEOS) 0.01 K/cumm 0.00-0.74 N Baso Abs (test code = ABASO) 0.0 K/cumm 0.00-0.21 N LDUBMVAZNLSS9613-56-91 18:46:00 Test Item Value Reference Range Interpretation Comments B/C Ratio (test code = B/C Ratio) 18 6[facility]25 [facility] 18:46:00 Test Item Value Reference Range Interpretation Comments A/G Ratio (test code = A/G Ratio) 1.1 0.7-1.6 [facility]FaajvrlBVBEDAEQAPFO4522-46-42 18:46:00 Test Item Value Reference Range Interpretation Comments Globulin (test code = Globulin) 3.3 2.0-4.0 [facility] MichiganTjbawezAEXTBQAMKNDQ6449-40-59 18:46:00 Test Item Value Reference Range Interpretation Comments eGFR (test code = eGFR) 99 [facility]HazwvgsCVTHBJNIRLHA4493-66-18 18:46:00 Test Item Value Reference Range Interpretation Comments Calcium Lvl (test code = Calcium Lvl) 9.0 8.5-10.5 [facility]VqqtjryJJERUYHNHYTM2879-68-34 18:46:00 Test Item Value Reference Range Interpretation Comments Chloride Lvl (test code = Chloride Lvl) 106 95-109 [facility] MichiganRbdgyyrPFTHSSUXJYRJ5626-71-78 18:46:00 Test Item Value Reference Range Interpretation Comments Creatinine Lvl (test code = Creatinine 0.9 0.5-1.4 Lvl) [facility] MichiganZzwbjvrCFRAMEPEGYZC8147-12-33 18:46:00 Test Item Value Reference Range Interpretation Comments Potassium Lvl (test code = Potassium 4.2 3.5-5.1 Lvl) [facility] MichiganWxadoxyMCWHSBYLTZMC3602-53-78 18:46:00 Test Item Value Reference Range Interpretation Comments Sodium Lvl (test code = Sodium Lvl) 139 135-145 [facility] MichiganZtgpigzCQPZHDCNFDEW1616-51-21 18:46:00 Test Item Value Reference Range Interpretation Comments CO2 (test code = CO2) 24 24-32 [facility] MichiganBpsyflbFAMMKIRVMNJN5743-47-58 18:46:00 Test Item Value Reference Range Interpretation Comments BUN (test code = BUN) 16 7-22 [facility] MichiganYvjnfycPIERHEKEZCHE0121-37-15 18:46:00 Test Item Value Reference Range Interpretation Comments Glucose Lvl (test code = Glucose Lvl) 141 70-99 [facility]HthrfizHWBHWMPPYDBJ1045-81-35 18:46:00 Test Item Value Reference Range Interpretation Comments Albumin Lvl (test code = Albumin Lvl) 3.6 3.5-5.0 [facility]FoybbhbBOSGCVZYZXZI0115-73-19 18:46:00 Test Item Value Reference Range Interpretation Comments Alk Phos (test code = Alk Phos) 65 39-136 [facility]UojsvamGPUVYIYQFVBS0307-72-77 18:46:00 Test Item Value Reference Range Interpretation Comments Bili Total (test code = Bili Total) 0.3 0.2-1.3 [facility]PyyyizmYZBWPGTTLSZQ4485-09-14 18:46:00 Test Item Value Reference Range Interpretation Comments ALT (test code = ALT) 100 See_Comment [Auto mated message] The system which ge nerated this result transmit elizabeth reference range : <=65. The reference range was not used to interpr et this result as lukas l/abnormal. [facility]UrejdhoDRBQDNRSQQGL2078-51-62 18:46:00 Test Item Value Reference Range Interpretation Comments AST (test code = AST) 53 See_Comment [Auto mated message] The system which ge nerated this result transmit elizabeth reference range : <=37. The reference range was not used to interpr et this result as lukas l/abnormal. [facility] MichiganDxcomsjSMLVVJRAPJCP4587-20-36 18:46:00 Test Item Value Reference Range Interpretation Comments Total Protein (test code = Total 6.9 6.4-8.4 Protein) [facility] HospitalIgglqltZNYPUKULLG4041-36-80 18:46:00 Test Item Value Reference Range Interpretation Comments Eosinophils (test code = 4.2 See_Comment [A utomated message] The Eosinophils) system which ge nerated this result tra nsmitted reference range : <=4.0. The reference r mitra was not used to int erpret this result as normal/abnormal . [facility] HospitalRqjziqfQXMGFZPKHP2020-27-01 18:46:00 Test Item Value Reference Range Interpretation Comments Segs (test code = Segs) 56.4 45.0-75.0 [facility] HospitalUuojvkxNSBUYJGSUH9125-73-12 18:46:00 Test Item Value Reference Range Interpretation Comments Monocytes (test code = Monocytes) 10.3 2.0-12.0 [facility] HospitalJmbiukzCUYQUKLCHK5591-89-23 18:46:00 Test Item Value Reference Range Interpretation Comments Lymphocytes (test code = Lymphocytes) 28.0 20.0-40.0 [facility] HospitalDvbtgwiYVGFVYKPRO3221-98-12 18:46:00 Test Item Value Reference Range Interpretation Comments Monocytes # (test code 0.5 See_Comment [Aut omated message] The = Monocytes #) system which generated this result tra nsmitted reference range : <=0.8. The reference r mitra was not used to int erpret this result as normal/abnormal . [facility] HospitalXgrglwrWXPMRRKNLX9608-64-23 18:46:00 Test Item Value Reference Range Interpretation Comments Basophils (test code = 1.1 See_Comment [Aut omated message] The Basophils) system which ge nerated this result tra nsmitted reference range : <=1.0. The reference r mitra was not used to int erpret this result as normal/abnormal . [facility] HospitalIivwogeSTEWNCONCS2839-93-06 18:46:00 Test Item Value Reference Range Interpretation Comments Lymphocytes # (test code = Lymphocytes 1.5 1.0-5.5 #) [facility] HospitalAwrbrpjGBZVTZNDYY1329-17-39 18:46:00 Test Item Value Reference Range Interpretation Comments Segs-Bands # (test code = Segs-Bands #) 2.9 1.5-8.1 [facility] HospitalEvhbljwBPXCNSKULR0120-50-40 18:46:00 Test Item Value Reference Range Interpretation Comments Eosinophils # (test code 0.2 See_Comment [A utomated message] The = Eosinophils #) system whic h generated this result tra nsmitted reference range : <=0.5. The reference r mitra was not used to int erpret this result as normal/abnormal . [facility] HospitalAefnwoeBPCEJPBEMP8450-58-52 18:46:00 Test Item Value Reference Range Interpretation Comments Basophils # (test code 0.1 See_Comment [Aut omated message] The = Basophils #) system which generated this result tra nsmitted reference range : <=0.2. The reference r mitra was not used to int erpret this result as normal/abnormal . [facility] HospitalBpleketGHMLVGCZMB5239-19-22 18:46:00 Test Item Value Reference Range Interpretation Comments PT (test code = PT) 11.2 s 12.0-14.7 [facility] HospitalYswypxcZSOXXZVUBN0790-74-98 18:46:00 Test Item Value Reference Range Interpretation Comments INR (test code = INR) 0.82 0.85-1.17 [facility] HospitalMgivyccQIQLNKWLIY4588-26-17 18:46:00 Test Item Value Reference Range Interpretation Comments PTT (test code = PTT) 28.6 s 22.9-35.8 [facility] HospitalOcgmpbbPAWPUCZVKS9485-69-67 18:46:00 Test Item Value Reference Range Interpretation Comments MPV (test code = MPV) 8.1 7.4-10.4 [facility] HospitalOlfsxfvDYSUAFWJKI0497-06-53 18:46:00 Test Item Value Reference Range Interpretation Comments Platelet (test code = Platelet) 301 133-450 [facility] HospitalKyxpbquQTLODANEHF4440-53-50 18:46:00 Test Item Value Reference Range Interpretation Comments RDW (test code = RDW) 14.5 11.5-14.5 [facility] HospitalXrunkfcRZLINJQBPC9056-18-31 18:46:00 Test Item Value Reference Range Interpretation Comments RBC (test code = RBC) 4.84 4.70-6.10 [facility] HospitalKyialrsWNAOKZZYVZ8847-12-53 18:46:00 Test Item Value Reference Range Interpretation Comments Hgb (test code = Hgb) 14.4 14.0-18.0 [facility] HospitalBprpbzwDCRLOFTUNS6015-09-37 18:46:00 Test Item Value Reference Range Interpretation Comments WBC (test code = WBC) 5.2 3.7-10.4 [facility] HospitalKzuczcyIHFKHUZXYG5145-48-45 18:46:00 Test Item Value Reference Range Interpretation Comments MCH (test code = MCH) 29.8 pg 27.0-31.0 [facility] HospitalGvukxmqFGEJOOIDIK3568-90-27 18:46:00 Test Item Value Reference Range Interpretation Comments MCV (test code = MCV) 92.0 80.0-94.0 [facility] HospitalEtsrwfsFMNUTQNAKC3885-53-86 18:46:00 Test Item Value Reference Range Interpretation Comments Hct (test code = Hct) 44.5 42.0-54.0 [facility] HospitalRhhipojOQMKROOYBO6112-93-86 18:46:00 Test Item Value Reference Range Interpretation Comments MCHC (test code = MCHC) 32.4 32.0-36.0 [facility] BwdyqweWXWDXYTEFX3192-98-92 18:46:00 Test Item Value Reference Range Interpretation Comments [place]-Hep C Ab (test Negative *NA*(07/22/14 code = [place]-Hep C 1:46 PM) Ab) [facility] [id number] 18:46:00 Test Item Value Reference Range Interpretation Comments UA Urobilinogen (test code = UA <=1.0 mg/dL 0.1-1.0 Urobilinogen) [facility] [id number] 18:46:00 Test Item Value Reference Range Interpretation Comments UA Sq Epi (test code = UA Sq Epi) None Seen [facility] [id number] 18:46:00 Test Item Value Reference Range Interpretation Comments UA Leuk Est (test Negative (07/22/14 1:46 code = UA Leuk Est) PM) [facility] [id number] 18:46:00 Test Item Value Reference Range Interpretation Comments UA Nitrite (test code Negative (07/22/14 1:46 = UA Nitrite) PM) [facility] [id number] 18:46:00 Test Item Value Reference Range Interpretation Comments UA Blood (test code = Negative (07/22/14 1:46 UA Blood) PM) [facility] [id number] 18:46:00 Test Item Value Reference Range Interpretation Comments UA Ketones (test code = UA Negative mg/dL Ketones) [facility] [id number] 18:46:00 Test Item Value Reference Range Interpretation Comments UA Bili (test code = Negative *NA*(07/22/14 UA Bili) 1:46 PM) [facility] [id number] 18:46:00 Test Item Value Reference Range Interpretation Comments UA Bacteria (test code = UA Occasional /HPF Bacteria) [facility] [id number] 18:46:00 Test Item Value Reference Range Interpretation Comments UA RBC (test code = no gt See_Comment [Automa elizabeth message] The UA RBC) system which ge nerated this result transmit elizabeth reference range : <=2. The reference range was not used to interpr et this result as lukas l/abnormal. [facility] AND [id number] 18:46:00 Test Item Value Reference Range Interpretation Comments UA WBC (test code = 1 See_Comment [Automa elizabeth message] The UA WBC) system which ge nerated this result transmit elizabeth reference range : <=5. The reference range was not used to interpr et this result as lukas l/abnormal. [facility] AND [id number] 18:46:00 Test Item Value Reference Range Interpretation Comments UA Glucose (test code = UA Glucose) 30 mg/dL [facility] AND [id number] 18:46:00 Test Item Value Reference Range Interpretation Comments UA Protein (test code = UA Negative mg/dL Protein) [facility] AND [id number] 18:46:00 Test Item Value Reference Range Interpretation Comments UA pH (test code = UA pH) 6.5 5.0-8.0 [facility] AND [id number] 18:46:00 Test Item Value Reference Range Interpretation Comments UA Turbidity (test code = Clear (07/22/14 1:46 UA Turbidity) PM) [facility] AND [id number] 18:46:00 Test Item Value Reference Range Interpretation Comments UA Spec Grav (test code = UA Spec Grav) 1.010 [facility] AND [id number] 18:46:00 Test Item Value Reference Range Interpretation Comments UA Color (test code = Light Yellow UA Color) *NA*(07/22/14 1:46 PM) [facility] [id number] 18:46:00 Test Item Value Reference Range Interpretation Comments Magnesium Lvl (test code = Magnesium 1.8 1.8-2.4 Lvl) [facility]JxwrzybFPYXATCZOSTJ8603-76-78 18:46:00 Test Item Value Reference Range Interpretation Comments AGAP (test code = AGAP) 13.2 10.0-20.0 [facility]XxlvotjMDMGZIWZXBDR5682-35-36 18:46:00 Test Item Value Reference Range Interpretation Comments B/C Ratio (test code = B/C Ratio) 18 6-25 [facility] MichiganGumbzcmCAEWMCXQYZKB2848-37-03 18:46:00 Test Item Value Reference Range Interpretation Comments A/G Ratio (test code = A/G Ratio) 1.1 0.7-1.6 [facility] MichiganRnqwzzwUBZUNVPIXGMS7636-27-61 18:46:00 Test Item Value Reference Range Interpretation Comments Globulin (test code = Globulin) 3.3 2.0-4.0 [facility]XngcixzNGOFLOVJSWGJ0722-17-62 18:46:00 Test Item Value Reference Range Interpretation Comments eGFR (test code = eGFR) 99 [facility]OsrgsdeXNDFHEAQAUSW2979-95-70 18:46:00 Test Item Value Reference Range Interpretation Comments Calcium Lvl (test code = Calcium Lvl) 9.0 8.5-10.5 [facility]DlhzicrCILQUHEOWNTI2026-68-57 18:46:00 Test Item Value Reference Range Interpretation Comments Chloride Lvl (test code = Chloride Lvl) 106 95-109 [facility] MichiganRxzmxdiVOIRNDHJWQZF4524-70-03 18:46:00 Test Item Value Reference Range Interpretation Comments Creatinine Lvl (test code = Creatinine 0.9 0.5-1.4 Lvl) [facility]VplgbscZAHHZZADXQKS0854-05-37 18:46:00 Test Item Value Reference Range Interpretation Comments Potassium Lvl (test code = Potassium 4.2 3.5-5.1 Lvl) [facility]DlxecwkXGYKTMKZDSAM0536-50-19 18:46:00 Test Item Value Reference Range Interpretation Comments Sodium Lvl (test code = Sodium Lvl) 139 135-145 [facility]MwfhkggYSBJJDCDFCKX6670-51-33 18:46:00 Test Item Value Reference Range Interpretation Comments CO2 (test code = CO2) 24 24-32 [facility] MichiganOtmaupiJBSCIMRHHJXG1396-20-43 18:46:00 Test Item Value Reference Range Interpretation Comments BUN (test code = BUN) 16 7-22 [facility]FckrqovWCEVNPCUUFBL5638-22-38 18:46:00 Test Item Value Reference Range Interpretation Comments Glucose Lvl (test code = Glucose Lvl) 141 70-99 [facility]OgchcsaHJOFYNFXCIJO0683-33-78 18:46:00 Test Item Value Reference Range Interpretation Comments Albumin Lvl (test code = Albumin Lvl) 3.6 3.5-5.0 [facility] MichiganWmdcwnzUXIENDKRVSNZ9726-76-36 18:46:00 Test Item Value Reference Range Interpretation Comments Alk Phos (test code = Alk Phos) 65 39-136 [facility]KbdhvrfQIYXUTPMGWBB0719-09-19 18:46:00 Test Item Value Reference Range Interpretation Comments Bili Total (test code = Bili Total) 0.3 0.2-1.3 [facility] MichiganUnsrayiMCPSYDBXOSJA4426-98-02 18:46:00 Test Item Value Reference Range Interpretation Comments ALT (test code = ALT) 100 See_Comment [Auto mated message] The system which ge nerated this result transmit elizabteh reference range : <=65. The reference range was not used to interpr et this result as lukas l/abnormal. [facility] MichiganVvmcgecHSRYBHUUGHLP8361-92-26 18:46:00 Test Item Value Reference Range Interpretation Comments AST (test code = AST) 53 See_Comment [Auto mated message] The system which ge nerated this result transmit elizabeth reference range : <=37. The reference range was not used to interpr et this result as lukas l/abnormal. [facility] MichiganPrnnljoNSMVASTEHBUY8446-85-62 18:46:00 Test Item Value Reference Range Interpretation Comments Total Protein (test code = Total 6.9 6.4-8.4 Protein) [facility] HospitalWemrlksLVMEBOUHDL4118-81-75 18:46:00 Test Item Value Reference Range Interpretation Comments Eosinophils (test code = 4.2 See_Comment [A utomated message] The Eosinophils) system which ge nerated this result tra nsmitted reference range : <=4.0. The reference r mitra was not used to int erpret this result as normal/abnormal . [facility] HospitalDwfjwlaIGLMIRUBNE8320-41-81 18:46:00 Test Item Value Reference Range Interpretation Comments Segs (test code = Segs) 56.4 45.0-75.0 [facility] HospitalVureyqhDWDGKDZFRL2539-87-77 18:46:00 Test Item Value Reference Range Interpretation Comments Monocytes (test code = Monocytes) 10.3 2.0-12.0 [facility] HospitalYlcmxinFAYMZWAPIN3724-09-80 18:46:00 Test Item Value Reference Range Interpretation Comments Lymphocytes (test code = Lymphocytes) 28.0 20.0-40.0 [facility] HospitalLapceiwNBBPWKVPJO3442-93-86 18:46:00 Test Item Value Reference Range Interpretation Comments Monocytes # (test code 0.5 See_Comment [Aut omated message] The = Monocytes #) system which generated this result tra nsmitted reference range : <=0.8. The reference r mitra was not used to int erpret this result as normal/abnormal . [facility] HospitalTpcjxixBNOMJPHOBO5753-45-45 18:46:00 Test Item Value Reference Range Interpretation Comments Basophils (test code = 1.1 See_Comment [Aut omated message] The Basophils) system which ge nerated this result tra nsmitted reference range : <=1.0. The reference r mitra was not used to int erpret this result as normal/abnormal . [facility] HospitalSuabohdRFDHOFXRRY3541-10-91 18:46:00 Test Item Value Reference Range Interpretation Comments Lymphocytes # (test code = Lymphocytes 1.5 1.0-5.5 #) [facility] HospitalNcghctiLQYAEGFBBU8180-33-06 18:46:00 Test Item Value Reference Range Interpretation Comments Segs-Bands # (test code = Segs-Bands #) 2.9 1.5-8.1 [facility] HospitalWarghaaJQUMAXLBJF8843-49-78 18:46:00 Test Item Value Reference Range Interpretation Comments Eosinophils # (test code 0.2 See_Comment [A utomated message] The = Eosinophils #) system whic h generated this result tra nsmitted reference range : <=0.5. The reference r mitra was not used to int erpret this result as normal/abnormal . [facility] HospitalUwxrbgtNPTFYAXHCD6155-92-53 18:46:00 Test Item Value Reference Range Interpretation Comments Basophils # (test code 0.1 See_Comment [Aut omated message] The = Basophils #) system which generated this result tra nsmitted reference range : <=0.2. The reference r mitra was not used to int erpret this result as normal/abnormal . [facility] HospitalQgzuczgMEWTRTRXUN3094-69-65 18:46:00 Test Item Value Reference Range Interpretation Comments PT (test code = PT) 11.2 s 12.0-14.7 [facility] HospitalCkhfxfjQAZOGFYAPF1374-52-81 18:46:00 Test Item Value Reference Range Interpretation Comments INR (test code = INR) 0.82 0.85-1.17 [facility] HospitalXewgomjLFZLRCXFYO6950-25-93 18:46:00 Test Item Value Reference Range Interpretation Comments PTT (test code = PTT) 28.6 s 22.9-35.8 [facility] HospitalWxzjrhmUTCYARDKET9745-27-23 18:46:00 Test Item Value Reference Range Interpretation Comments MPV (test code = MPV) 8.1 7.4-10.4 [facility] LancasterQplbfruLDREWDAANH1134-72-79 18:46:00 Test Item Value Reference Range Interpretation Comments Platelet (test code = Platelet) 301 133-450 [facility] LancasterTnvaqxaETTWROKBPD5532-59-48 18:46:00 Test Item Value Reference Range Interpretation Comments RDW (test code = RDW) 14.5 11.5-14.5 [facility] LancasterPxfkksyZWRQGUHZKC1093-75-46 18:46:00 Test Item Value Reference Range Interpretation Comments RBC (test code = RBC) 4.84 4.70-6.10 [facility] LancasterQkrdqxiHAZRHQNROE4341-09-42 18:46:00 Test Item Value Reference Range Interpretation Comments Hgb (test code = Hgb) 14.4 14.0-18.0 [facility] XlrzzciUMKPYOWXIX0748-63-36 18:46:00 Test Item Value Reference Range Interpretation Comments WBC (test code = WBC) 5.2 3.7-10.4 [facility] LancasterVwgwokvKLOPVBXNYS5338-98-81 18:46:00 Test Item Value Reference Range Interpretation Comments MCH (test code = MCH) 29.8 pg 27.0-31.0 [facility] LancasterDoctctoAMXTJKBCVX8375-83-97 18:46:00 Test Item Value Reference Range Interpretation Comments MCV (test code = MCV) 92.0 80.0-94.0 [facility]OcfdbgsJQNKYVHIMC9584-46-51 18:46:00 Test Item Value Reference Range Interpretation Comments Hct (test code = Hct) 44.5 42.0-54.0 [facility] LancasterSdmgfpyTTBOQPYGWZ7992-74-32 18:46:00 Test Item Value Reference Range Interpretation Comments MCHC (test code = MCHC) 32.4 32.0-36.0 [facility] LancasterSxnqayoLOGINJKIOR7406-51-48 18:46:00 Test Item Value Reference Range Interpretation Comments [place]-Hep C Ab (test Negative *NA*(07/22/14 code = [place]-Hep C 1:46 PM) Ab) [facility] FCIWC1979-03-09 18:46:00 Test Item Value Reference Range Interpretation Comments UA Urobilinogen (test code = UA <=1.0 mg/dL 0.1-1.0 Urobilinogen) [facility] [id number] 18:46:00 Test Item Value Reference Range Interpretation Comments UA Sq Epi (test code = UA Sq Epi) None Seen [facility] AND [id number] 18:46:00 Test Item Value Reference Range Interpretation Comments UA Leuk Est (test Negative (07/22/14 1:46 code = UA Leuk Est) PM) [facility] AND [id number] 18:46:00 Test Item Value Reference Range Interpretation Comments UA Nitrite (test code Negative (07/22/14 1:46 = UA Nitrite) PM) [facility] AND [id number] 18:46:00 Test Item Value Reference Range Interpretation Comments UA Blood (test code = Negative (07/22/14 1:46 UA Blood) PM) [facility] AND [id number] 18:46:00 Test Item Value Reference Range Interpretation Comments UA Ketones (test code = UA Negative mg/dL Ketones) [facility] AND [id number] 18:46:00 Test Item Value Reference Range Interpretation Comments UA Bili (test code = Negative *NA*(07/22/14 UA Bili) 1:46 PM) [facility] AND [id number] 18:46:00 Test Item Value Reference Range Interpretation Comments UA Bacteria (test code = UA Occasional /HPF Bacteria) [facility] AND [id number] 18:46:00 Test Item Value Reference Range Interpretation Comments UA RBC (test code = no gt See_Comment [Automa elizabeth message] The UA RBC) system which ge nerated this result transmit elizabeth reference range : <=2. The reference range was not used to interpr et this result as lukas l/abnormal. [facility] AND [id number] 18:46:00 Test Item Value Reference Range Interpretation Comments UA WBC (test code = 1 See_Comment [Automa elizabeth message] The UA WBC) system which ge nerated this result transmit elizabeth reference range : <=5. The reference range was not used to interpr et this result as lukas l/abnormal. [facility] AND [id number] 18:46:00 Test Item Value Reference Range Interpretation Comments UA Glucose (test code = UA Glucose) 30 mg/dL [facility] AND [id number] 18:46:00 Test Item Value Reference Range Interpretation Comments UA Protein (test code = UA Negative mg/dL Protein) [facility] [id number] 18:46:00 Test Item Value Reference Range Interpretation Comments UA pH (test code = UA pH) 6.5 5.0-8.0 [facility] AND [id number] 18:46:00 Test Item Value Reference Range Interpretation Comments UA Turbidity (test code = Clear (07/22/14 1:46 UA Turbidity) PM) [facility] AND [id number] 18:46:00 Test Item Value Reference Range Interpretation Comments UA Spec Grav (test code = UA Spec Grav) 1.010 [facility] AND [id number] 18:46:00 Test Item Value Reference Range Interpretation Comments UA Color (test code = Light Yellow UA Color) *NA*(07/22/14 1:46 PM) [facility] [id number] 18:46:00 Test Item Value Reference Range Interpretation Comments Magnesium Lvl (test code = Magnesium 1.8 1.8-2.4 Lvl) [facility]MpeotxiTLBLUQXTKXGD8784-92-96 18:46:00 Test Item Value Reference Range Interpretation Comments AGAP (test code = AGAP) 13.2 10.0-20.0 [facility] HospitalNrpujyaOHVQOSXUGALG2538-37-88 18:46:00 Test Item Value Reference Range Interpretation Comments B/C Ratio (test code = B/C Ratio) 18 6-25 [facility] HospitalWgrppjhHJKWBORCZAIF1983-47-37 18:46:00 Test Item Value Reference Range Interpretation Comments A/G Ratio (test code = A/G Ratio) 1.1 0.7-1.6 [facility] CenterYqwqmwlAZBTROSZEZCC0558-02-06 18:46:00 Test Item Value Reference Range Interpretation Comments Globulin (test code = Globulin) 3.3 2.0-4.0 [facility] CenterNdbohufBRYQPUTSWKXA0539-87-66 18:46:00 Test Item Value Reference Range Interpretation Comments eGFR (test code = eGFR) 99 [facility]IcmvypuHPIQPFKBOXFC4530-68-57 18:46:00 Test Item Value Reference Range Interpretation Comments Calcium Lvl (test code = Calcium Lvl) 9.0 8.5-10.5 [facility]RtytypuLRNHGDDNXCCH7405-77-91 18:46:00 Test Item Value Reference Range Interpretation Comments Chloride Lvl (test code = Chloride Lvl) 106 95-109 [facility] MichiganBweyjulTKKKGUFJOZVD9963-54-96 18:46:00 Test Item Value Reference Range Interpretation Comments Creatinine Lvl (test code = Creatinine 0.9 0.5-1.4 Lvl) [facility] MichiganJaogfihJDZJCALXWRIH5254-30-58 18:46:00 Test Item Value Reference Range Interpretation Comments Potassium Lvl (test code = Potassium 4.2 3.5-5.1 Lvl) [facility]IyebsauZSPROICTTSKS9447-25-92 18:46:00 Test Item Value Reference Range Interpretation Comments Sodium Lvl (test code = Sodium Lvl) 139 135-145 [facility] MichiganLrykvvyJZUSLCIEAHIF1456-17-22 18:46:00 Test Item Value Reference Range Interpretation Comments CO2 (test code = CO2) 24 24-32 [facility] MichiganQcyxgzqWPSESSGFWNWZ3994-45-69 18:46:00 Test Item Value Reference Range Interpretation Comments BUN (test code = BUN) 16 7-22 [facility] MichiganEtrtrbyQXJQWFDGNZAD6914-89-30 18:46:00 Test Item Value Reference Range Interpretation Comments Glucose Lvl (test code = Glucose Lvl) 141 70-99 [facility] MichiganUchecycJYQUILDSLWKE5822-77-09 18:46:00 Test Item Value Reference Range Interpretation Comments Albumin Lvl (test code = Albumin Lvl) 3.6 3.5-5.0 [facility] MichiganQtoeyiqQIQXPJJETCTV2507-26-49 18:46:00 Test Item Value Reference Range Interpretation Comments Alk Phos (test code = Alk Phos) 65 39-136 [facility] MichiganLectpgvYDCKCMHBGWFN4731-62-99 18:46:00 Test Item Value Reference Range Interpretation Comments Bili Total (test code = Bili Total) 0.3 0.2-1.3 [facility] MichiganRkaocedSRRBZXVUGQIA5210-75-25 18:46:00 Test Item Value Reference Range Interpretation Comments ALT (test code = ALT) 100 See_Comment [Auto mated message] The system which ge nerated this result transmit elizabeth reference range : <=65. The reference range was not used to interpr et this result as lukas l/abnormal. [facility] MichiganSoifsigTMFQTWVERLBG6505-54-75 18:46:00 Test Item Value Reference Range Interpretation Comments AST (test code = AST) 53 See_Comment [Auto mated message] The system which ge nerated this result transmit elizabeth reference range : <=37. The reference range was not used to interpr et this result as lukas l/abnormal. [facility] MichiganWfeaaweIVYOXKAYTAOP0536-65-83 18:46:00 Test Item Value Reference Range Interpretation Comments Total Protein (test code = Total 6.9 6.4-8.4 Protein) [facility] HospitalAycnxxeZYCKGCHZFL8684-22-35 18:46:00 Test Item Value Reference Range Interpretation Comments Eosinophils (test code = 4.2 See_Comment [A utomated message] The Eosinophils) system which ge nerated this result tra nsmitted reference range : <=4.0. The reference r mitra was not used to int erpret this result as normal/abnormal . [facility] HospitalVuimwduSEKQVGNEOR8818-16-62 18:46:00 Test Item Value Reference Range Interpretation Comments Segs (test code = Segs) 56.4 45.0-75.0 [facility] HospitalQmpzwciJNMBLBXZFP7705-42-78 18:46:00 Test Item Value Reference Range Interpretation Comments Monocytes (test code = Monocytes) 10.3 2.0-12.0 [facility] HospitalObrrjgtTCICBFZDOF0640-76-16 18:46:00 Test Item Value Reference Range Interpretation Comments Lymphocytes (test code = Lymphocytes) 28.0 20.0-40.0 [facility] HospitalYeitxowZHFTUGISQZ2085-32-50 18:46:00 Test Item Value Reference Range Interpretation Comments Monocytes # (test code 0.5 See_Comment [Aut omated message] The = Monocytes #) system which generated this result tra nsmitted reference range : <=0.8. The reference r mitra was not used to int erpret this result as normal/abnormal . [facility] HospitalNeouvnkTHWNMBBEBR1635-01-91 18:46:00 Test Item Value Reference Range Interpretation Comments Basophils (test code = 1.1 See_Comment [Aut omated message] The Basophils) system which ge nerated this result tra nsmitted reference range : <=1.0. The reference r mitra was not used to int erpret this result as normal/abnormal . [facility] HospitalQazsujfVAJJGBLQVB8630-47-75 18:46:00 Test Item Value Reference Range Interpretation Comments Lymphocytes # (test code = Lymphocytes 1.5 1.0-5.5 #) [facility] HospitalLyonokxERKMROELCW1368-72-20 18:46:00 Test Item Value Reference Range Interpretation Comments Segs-Bands # (test code = Segs-Bands #) 2.9 1.5-8.1 [facility] HospitalOjwuxrhTRWPYHIUCN3781-09-95 18:46:00 Test Item Value Reference Range Interpretation Comments Eosinophils # (test code 0.2 See_Comment [A utomated message] The = Eosinophils #) system whic h generated this result tra nsmitted reference range : <=0.5. The reference r mitra was not used to int erpret this result as normal/abnormal . [facility] HospitalAbxwnyuHIWWWUAOLK0120-24-43 18:46:00 Test Item Value Reference Range Interpretation Comments Basophils # (test code 0.1 See_Comment [Aut omated message] The = Basophils #) system which generated this result tra nsmitted reference range : <=0.2. The reference r mitra was not used to int erpret this result as normal/abnormal . [facility] HospitalPmavvrcJFDAKMCPOR2815-99-87 18:46:00 Test Item Value Reference Range Interpretation Comments PT (test code = PT) 11.2 s 12.0-14.7 [facility] HospitalQtvwkwhXPILBIGVUI0617-43-61 18:46:00 Test Item Value Reference Range Interpretation Comments INR (test code = INR) 0.82 0.85-1.17 [facility] HospitalSarmnieFVPKNLJCBD8433-44-91 18:46:00 Test Item Value Reference Range Interpretation Comments PTT (test code = PTT) 28.6 s 22.9-35.8 [facility] HospitalVjugzwhLTWBTIAZBL5328-46-84 18:46:00 Test Item Value Reference Range Interpretation Comments MPV (test code = MPV) 8.1 7.4-10.4 [facility] HospitalMesepvuIXVIQHAOGX9048-03-71 18:46:00 Test Item Value Reference Range Interpretation Comments Platelet (test code = Platelet) 301 133-450 [facility] HospitalJdbpxswLYSYUCHEFI3728-03-47 18:46:00 Test Item Value Reference Range Interpretation Comments RDW (test code = RDW) 14.5 11.5-14.5 [facility] HospitalCfoxqexOFRVBAUVNR8496-66-65 18:46:00 Test Item Value Reference Range Interpretation Comments RBC (test code = RBC) 4.84 4.70-6.10 [facility]RhmsxxrYNRCKFNJRZ2830-48-49 18:46:00 Test Item Value Reference Range Interpretation Comments Hgb (test code = Hgb) 14.4 14.0-18.0 [facility] HospitalTwvincjQHWPJCFHWY6654-06-98 18:46:00 Test Item Value Reference Range Interpretation Comments WBC (test code = WBC) 5.2 3.7-10.4 [facility] HospitalIpgmckuHHPOIZEASC7744-55-39 18:46:00 Test Item Value Reference Range Interpretation Comments MCH (test code = MCH) 29.8 pg 27.0-31.0 [facility] HospitalFgnqxcyGCVEGHJGFG6314-69-71 18:46:00 Test Item Value Reference Range Interpretation Comments MCV (test code = MCV) 92.0 80.0-94.0 [facility] HospitalItykbrpXCZAXNLXBN6591-20-60 18:46:00 Test Item Value Reference Range Interpretation Comments Hct (test code = Hct) 44.5 42.0-54.0 [facility] HospitalJsmhyysVMQECQZJGD7035-36-93 18:46:00 Test Item Value Reference Range Interpretation Comments MCHC (test code = MCHC) 32.4 32.0-36.0 [facility] LancasterYdbuzisYOCVYYPMUF6369-56-76 18:46:00 Test Item Value Reference Range Interpretation Comments [place]-Hep C Ab (test Negative *NA*(07/22/14 code = [place]-Hep C 1:46 PM) Ab) [facility] AND [id number] 18:46:00 Test Item Value Reference Range Interpretation Comments UA Urobilinogen (test code = UA <=1.0 mg/dL 0.1-1.0 Urobilinogen) [facility] AND [id number] 18:46:00 Test Item Value Reference Range Interpretation Comments UA Sq Epi (test code = UA Sq Epi) None Seen [facility] AND [id number] 18:46:00 Test Item Value Reference Range Interpretation Comments UA Leuk Est (test Negative (07/22/14 1:46 code = UA Leuk Est) PM) [facility] AND [id number] 18:46:00 Test Item Value Reference Range Interpretation Comments UA Nitrite (test code Negative (07/22/14 1:46 = UA Nitrite) PM) [facility] AND [id number] 18:46:00 Test Item Value Reference Range Interpretation Comments UA Blood (test code = Negative (07/22/14 1:46 UA Blood) PM) [facility] AND [id number] 18:46:00 Test Item Value Reference Range Interpretation Comments UA Ketones (test code = UA Negative mg/dL Ketones) [facility] AND [id number] 18:46:00 Test Item Value Reference Range Interpretation Comments UA Bili (test code = Negative *NA*(07/22/14 UA Bili) 1:46 PM) [facility] AND [id number] 18:46:00 Test Item Value Reference Range Interpretation Comments UA Bacteria (test code = UA Occasional /HPF Bacteria) [facility] AND [id number] 18:46:00 Test Item Value Reference Range Interpretation Comments UA RBC (test code = no gt See_Comment [Automa elizabeth message] The UA RBC) system which ge nerated this result transmit elizabeth reference range : <=2. The reference range was not used to interpr et this result as lukas l/abnormal. [facility] AND [id number] 18:46:00 Test Item Value Reference Range Interpretation Comments UA WBC (test code = 1 See_Comment [Automa elizabeth message] The UA WBC) system which ge nerated this result transmit elizabeth reference range : <=5. The reference range was not used to interpr et this result as lukas l/abnormal. [facility] AND [id number] 18:46:00 Test Item Value Reference Range Interpretation Comments UA Glucose (test code = UA Glucose) 30 mg/dL [facility] AND [id number] 18:46:00 Test Item Value Reference Range Interpretation Comments UA Protein (test code = UA Negative mg/dL Protein) [facility] AND [id number] 18:46:00 Test Item Value Reference Range Interpretation Comments UA pH (test code = UA pH) 6.5 5.0-8.0 [facility] AND [id number] 18:46:00 Test Item Value Reference Range Interpretation Comments UA Turbidity (test code = Clear (07/22/14 1:46 UA Turbidity) PM) [facility] AND [id number] 18:46:00 Test Item Value Reference Range Interpretation Comments UA Spec Grav (test code = UA Spec Grav) 1.010 [facility] [id number] 18:46:00 Test Item Value Reference Range Interpretation Comments UA Color (test code = Light Yellow UA Color) *NA*(07/22/14 1:46 PM) [facility] [id number] 18:46:00 Test Item Value Reference Range Interpretation Comments Magnesium Lvl (test code = Magnesium 1.8 1.8-2.4 Lvl) [facility]UvuibmyYAOMCYYBRBKD9862-18-90 18:46:00 Test Item Value Reference Range Interpretation Comments AGAP (test code = AGAP) 13.2 10.0-20.0 [facility]KskfyqcOIHTCBKWONZQ2838-72-71 18:46:00 Test Item Value Reference Range Interpretation Comments B/C Ratio (test code = B/C Ratio) 18 6-25 [facility] MichiganMgxbytwOAJANZXRFAGE3593-44-64 18:46:00 Test Item Value Reference Range Interpretation Comments A/G Ratio (test code = A/G Ratio) 1.1 0.7-1.6 [facility]PvtfwotSRMZTWRROVZV5607-12-34 18:46:00 Test Item Value Reference Range Interpretation Comments Globulin (test code = Globulin) 3.3 2.0-4.0 [facility]UcyobzvQMQRCHKREZKS9964-30-50 18:46:00 Test Item Value Reference Range Interpretation Comments eGFR (test code = eGFR) 99 [facility]OhauhjtTBAGFZQRDXGT3323-56-28 18:46:00 Test Item Value Reference Range Interpretation Comments Calcium Lvl (test code = Calcium Lvl) 9.0 8.5-10.5 [facility]AucmdntGDLKKZKJSKJY6136-76-15 18:46:00 Test Item Value Reference Range Interpretation Comments Chloride Lvl (test code = Chloride Lvl) 106 95-109 [facility]NjrwywjVQEGXQRMNGEU2677-81-76 18:46:00 Test Item Value Reference Range Interpretation Comments Creatinine Lvl (test code = Creatinine 0.9 0.5-1.4 Lvl) [facility] MichiganDytxhmkESDZOAJGMFYX6257-63-55 18:46:00 Test Item Value Reference Range Interpretation Comments Potassium Lvl (test code = Potassium 4.2 3.5-5.1 Lvl) [facility]MfaoivgVEJTWMKMOXFX0894-90-53 18:46:00 Test Item Value Reference Range Interpretation Comments Sodium Lvl (test code = Sodium Lvl) 139 135-145 [facility]ActdtelDWYDTPITKQPF7896-89-36 18:46:00 Test Item Value Reference Range Interpretation Comments CO2 (test code = CO2) 24 24-32 [facility] MichiganZlalrquLVTYIDGXHKTY5208-39-91 18:46:00 Test Item Value Reference Range Interpretation Comments BUN (test code = BUN) 16 7-22 [facility]VqjhjqtGZBZJBINHHPJ0475-23-97 18:46:00 Test Item Value Reference Range Interpretation Comments Glucose Lvl (test code = Glucose Lvl) 141 70-99 [facility] MichiganCuvahksGDKJHJDGXBCB8309-54-84 18:46:00 Test Item Value Reference Range Interpretation Comments Albumin Lvl (test code = Albumin Lvl) 3.6 3.5-5.0 [facility]QemvxlzDQEIUJYNFTDP3234-33-02 18:46:00 Test Item Value Reference Range Interpretation Comments Alk Phos (test code = Alk Phos) 65 39-136 [facility]LmjhtqkNANKJMXFNOYD9735-55-21 18:46:00 Test Item Value Reference Range Interpretation Comments Bili Total (test code = Bili Total) 0.3 0.2-1.3 [facility] MichiganBtnbcoeVYZNSBALVSYY0418-27-30 18:46:00 Test Item Value Reference Range Interpretation Comments ALT (test code = ALT) 100 See_Comment [Auto mated message] The system which ge nerated this result transmit elizabeth reference range : <=65. The reference range was not used to interpr et this result as lukas l/abnormal. [facility] MichiganFkfhoynDFRKOHVPAUGO1469-98-96 18:46:00 Test Item Value Reference Range Interpretation Comments AST (test code = AST) 53 See_Comment [Auto mated message] The system which ge nerated this result transmit elizabeth reference range : <=37. The reference range was not used to interpr et this result as lukas l/abnormal. [facility] MichiganWteuxtzHSCDOSOEYAEE5546-10-87 18:46:00 Test Item Value Reference Range Interpretation Comments Total Protein (test code = Total 6.9 6.4-8.4 Protein) [facility] LancasterLbqursaJCCGUKHKPW8149-84-72 18:46:00 Test Item Value Reference Range Interpretation Comments Eosinophils (test code = 4.2 See_Comment [A utomated message] The Eosinophils) system which ge nerated this result tra nsmitted reference range : <=4.0. The reference r mitra was not used to int erpret this result as normal/abnormal . [facility] HospitalUsjfilwDGKOUBEZUY9219-63-08 18:46:00 Test Item Value Reference Range Interpretation Comments Segs (test code = Segs) 56.4 45.0-75.0 [facility] HospitalCoydovmCNMEWCGHLQ8416-20-50 18:46:00 Test Item Value Reference Range Interpretation Comments Monocytes (test code = Monocytes) 10.3 2.0-12.0 [facility] HospitalGuwevljTTPSGZQGMD2667-83-68 18:46:00 Test Item Value Reference Range Interpretation Comments Lymphocytes (test code = Lymphocytes) 28.0 20.0-40.0 [facility] HospitalOilujbhCDUABMZCSG6268-43-81 18:46:00 Test Item Value Reference Range Interpretation Comments Monocytes # (test code 0.5 See_Comment [Aut omated message] The = Monocytes #) system which generated this result tra nsmitted reference range : <=0.8. The reference r mitra was not used to int erpret this result as normal/abnormal . [facility] HospitalHsjapxkVACBPUPITW6231-33-22 18:46:00 Test Item Value Reference Range Interpretation Comments Basophils (test code = 1.1 See_Comment [Aut omated message] The Basophils) system which ge nerated this result tra nsmitted reference range : <=1.0. The reference r mitra was not used to int erpret this result as normal/abnormal . [facility] HospitalLlyrhdwPWQGODNBSB0355-98-71 18:46:00 Test Item Value Reference Range Interpretation Comments Lymphocytes # (test code = Lymphocytes 1.5 1.0-5.5 #) [facility] HospitalDgtdtkdRHUMUPURYU5937-47-29 18:46:00 Test Item Value Reference Range Interpretation Comments Segs-Bands # (test code = Segs-Bands #) 2.9 1.5-8.1 [facility] HospitalIjnkszbQFNDQCPJEV8701-66-31 18:46:00 Test Item Value Reference Range Interpretation Comments Eosinophils # (test code 0.2 See_Comment [A utomated message] The = Eosinophils #) system whic h generated this result tra nsmitted reference range : <=0.5. The reference r mitra was not used to int erpret this result as normal/abnormal . [facility] HospitalKxalmauWKDFLPWMQT9606-55-98 18:46:00 Test Item Value Reference Range Interpretation Comments Basophils # (test code 0.1 See_Comment [Aut omated message] The = Basophils #) system which generated this result tra nsmitted reference range : <=0.2. The reference r mitra was not used to int erpret this result as normal/abnormal . [facility] HospitalGcdyhaoFITVFGZDFO8687-82-22 18:46:00 Test Item Value Reference Range Interpretation Comments PT (test code = PT) 11.2 s 12.0-14.7 [facility] HospitalNdntsflEQHHREYHFM1980-30-73 18:46:00 Test Item Value Reference Range Interpretation Comments INR (test code = INR) 0.82 0.85-1.17 [facility] HospitalZbenguyBOGKGORBLQ6545-57-35 18:46:00 Test Item Value Reference Range Interpretation Comments PTT (test code = PTT) 28.6 s 22.9-35.8 [facility] HospitalXfifqwpMEBWCCFZZS2215-68-73 18:46:00 Test Item Value Reference Range Interpretation Comments MPV (test code = MPV) 8.1 7.4-10.4 [facility] HospitalGwtvjisMLWPEZNJAO1432-95-99 18:46:00 Test Item Value Reference Range Interpretation Comments Platelet (test code = Platelet) 301 133-450 [facility] HospitalCkoqtqnPCZDGUBFRH2410-74-05 18:46:00 Test Item Value Reference Range Interpretation Comments RDW (test code = RDW) 14.5 11.5-14.5 [facility] HospitalZukbwdvOFUACGXOFM5768-56-08 18:46:00 Test Item Value Reference Range Interpretation Comments RBC (test code = RBC) 4.84 4.70-6.10 [facility] HospitalLlvtqhxDGLCYMZHRN1704-80-73 18:46:00 Test Item Value Reference Range Interpretation Comments Hgb (test code = Hgb) 14.4 14.0-18.0 [facility] HospitalSlpngqaBASOSZLOKJ1027-91-36 18:46:00 Test Item Value Reference Range Interpretation Comments WBC (test code = WBC) 5.2 3.7-10.4 [facility] HospitalDrwufjnKQVWYXWTGL5145-41-03 18:46:00 Test Item Value Reference Range Interpretation Comments MCH (test code = MCH) 29.8 pg 27.0-31.0 [facility] HospitalOjovlslZTUYVTMZCV6790-88-35 18:46:00 Test Item Value Reference Range Interpretation Comments MCV (test code = MCV) 92.0 80.0-94.0 [facility] LancasterMtijcmuWQCHIKLQPP7473-78-64 18:46:00 Test Item Value Reference Range Interpretation Comments Hct (test code = Hct) 44.5 42.0-54.0 [facility] LancasterQhbgvhrOYOHWAQAEB2362-96-10 18:46:00 Test Item Value Reference Range Interpretation Comments MCHC (test code = MCHC) 32.4 32.0-36.0 [facility] LancasterEcitgddNEOXREUQME7997-89-02 18:46:00 Test Item Value Reference Range Interpretation Comments [place]-Hep C Ab (test Negative *NA*(07/22/14 code = [place]-Hep C 1:46 PM) Ab) [facility] AND [id number] 18:46:00 Test Item Value Reference Range Interpretation Comments UA Urobilinogen (test code = UA <=1.0 mg/dL 0.1-1.0 Urobilinogen) [facility] AND [id number] 18:46:00 Test Item Value Reference Range Interpretation Comments UA Sq Epi (test code = UA Sq Epi) None Seen [facility] AND [id number] 18:46:00 Test Item Value Reference Range Interpretation Comments UA Leuk Est (test Negative (07/22/14 1:46 code = UA Leuk Est) PM) [facility] AND [id number] 18:46:00 Test Item Value Reference Range Interpretation Comments UA Nitrite (test code Negative (07/22/14 1:46 = UA Nitrite) PM) [facility] AND [id number] 18:46:00 Test Item Value Reference Range Interpretation Comments UA Blood (test code = Negative (07/22/14 1:46 UA Blood) PM) [facility] AND [id number] 18:46:00 Test Item Value Reference Range Interpretation Comments UA Ketones (test code = UA Negative mg/dL Ketones) [facility] AND [id number] 18:46:00 Test Item Value Reference Range Interpretation Comments UA Bili (test code = Negative *NA*(07/22/14 UA Bili) 1:46 PM) [facility] AND [id number] 18:46:00 Test Item Value Reference Range Interpretation Comments UA Bacteria (test code = UA Occasional /HPF Bacteria) [facility] [id number] 18:46:00 Test Item Value Reference Range Interpretation Comments UA RBC (test code = no gt See_Comment [Automa elizabeth message] The UA RBC) system which ge nerated this result transmit elizabeth reference range : <=2. The reference range was not used to interpr et this result as lukas l/abnormal. [facility] [id number] 18:46:00 Test Item Value Reference Range Interpretation Comments UA WBC (test code = 1 See_Comment [Automa elizabeth message] The UA WBC) system which ge nerated this result transmit elizabeth reference range : <=5. The reference range was not used to interpr et this result as lukas l/abnormal. [facility] [id number] 18:46:00 Test Item Value Reference Range Interpretation Comments UA Glucose (test code = UA Glucose) 30 mg/dL [facility] AND [id number] 18:46:00 Test Item Value Reference Range Interpretation Comments UA Protein (test code = UA Negative mg/dL Protein) [facility] [id number] 18:46:00 Test Item Value Reference Range Interpretation Comments UA pH (test code = UA pH) 6.5 5.0-8.0 [facility] [id number] 18:46:00 Test Item Value Reference Range Interpretation Comments UA Turbidity (test code = Clear (07/22/14 1:46 UA Turbidity) PM) [facility] AND [id number] 18:46:00 Test Item Value Reference Range Interpretation Comments UA Spec Grav (test code = UA Spec Grav) 1.010 [facility] [id number] 18:46:00 Test Item Value Reference Range Interpretation Comments UA Color (test code = Light Yellow UA Color) *NA*(07/22/14 1:46 PM) [facility]annCHE[facility] [id number] 18:46:00 Test Item Value Reference Range Interpretation Comments Magnesium Lvl (test code = Magnesium 1.8 1.8-2.4 Lvl) [facility] TmyklupDGRFATGXWQDS4983-94-01 18:46:00 Test Item Value Reference Range Interpretation Comments AGAP (test code = AGAP) 13.2 10.0-20.0 [facility]IicgfdqYCDKKUSVVTOZ1138-89-56 18:46:00 Test Item Value Reference Range Interpretation Comments B/C Ratio (test code = B/C Ratio) 18 6-25 [facility]YccmcjtNWTTHJFXVSCO0400-61-17 18:46:00 Test Item Value Reference Range Interpretation Comments A/G Ratio (test code = A/G Ratio) 1.1 0.7-1.6 [facility]KhgvdnrJZPUTCOGFHRU1904-58-40 18:46:00 Test Item Value Reference Range Interpretation Comments Globulin (test code = Globulin) 3.3 2.0-4.0 [facility] MichiganZnggnewMRRXRYPVBQGS0409-03-21 18:46:00 Test Item Value Reference Range Interpretation Comments eGFR (test code = eGFR) 99 [facility]QzjwimyNNDJZDRABQWO9319-04-19 18:46:00 Test Item Value Reference Range Interpretation Comments Calcium Lvl (test code = Calcium Lvl) 9.0 8.5-10.5 [facility]FfhanarSIIUWOHWTVSW3509-33-70 18:46:00 Test Item Value Reference Range Interpretation Comments Chloride Lvl (test code = Chloride Lvl) 106 95-109 [facility]UnhxpusURKLMDOJZRYZ8074-41-11 18:46:00 Test Item Value Reference Range Interpretation Comments Creatinine Lvl (test code = Creatinine 0.9 0.5-1.4 Lvl) [facility] MichiganTvyxznpFPEOLMQBSFOX8613-94-14 18:46:00 Test Item Value Reference Range Interpretation Comments Potassium Lvl (test code = Potassium 4.2 3.5-5.1 Lvl) [facility]EuhgvwoMXAVJTTXHUEK5655-03-29 18:46:00 Test Item Value Reference Range Interpretation Comments Sodium Lvl (test code = Sodium Lvl) 139 135-145 [facility] MichiganSsoqhooGVJDNSAMPRJU5498-38-96 18:46:00 Test Item Value Reference Range Interpretation Comments CO2 (test code = CO2) 24 24-32 [facility]FskfywqROQUIEJVZUMW1700-21-84 18:46:00 Test Item Value Reference Range Interpretation Comments BUN (test code = BUN) 16 7-22 [facility]PpmkgprGUMMFQIMVLLG7988-94-23 18:46:00 Test Item Value Reference Range Interpretation Comments Glucose Lvl (test code = Glucose Lvl) 141 70-99 [facility]XfanskrWGSUPDWZOZYK8718-87-63 18:46:00 Test Item Value Reference Range Interpretation Comments Albumin Lvl (test code = Albumin Lvl) 3.6 3.5-5.0 [facility]JvydxfqDHPUOBWNPQRS6932-68-19 18:46:00 Test Item Value Reference Range Interpretation Comments Alk Phos (test code = Alk Phos) 65 39-136 [facility] MichiganQqosovxAUPKWWWBGPOK7364-90-93 18:46:00 Test Item Value Reference Range Interpretation Comments Bili Total (test code = Bili Total) 0.3 0.2-1.3 [place] 356375-06-09 18:46:00 Test Item Value Reference Range Interpretation Comments ALT (test code = ALT) 100 See_Comment [Auto mated message] The system which ge nerated this result transmit elizabeth reference range : <=65. The reference range was not used to interpr et this result as lukas l/abnormal. [facility]JcfbniwXLPBLQIUSKWB3633-16-26 18:46:00 Test Item Value Reference Range Interpretation Comments AST (test code = AST) 53 See_Comment [Auto mated message] The system which ge nerated this result transmit elizabeth reference range : <=37. The reference range was not used to interpr et this result as lukas l/abnormal. [facility] MichiganCraevuqAMYIWIGTLDOD8853-68-99 18:46:00 Test Item Value Reference Range Interpretation Comments Total Protein (test code = Total 6.9 6.4-8.4 Protein) [facility]TdzosywJRDYNDSMLY5901-03-30 18:46:00 Test Item Value Reference Range Interpretation Comments Eosinophils (test code = 4.2 See_Comment [A utomated message] The Eosinophils) system which ge nerated this result tra nsmitted reference range : <=4.0. The reference r mitra was not used to int erpret this result as normal/abnormal . [facility] HospitalWiqegivDWMPMISONY0672-52-40 18:46:00 Test Item Value Reference Range Interpretation Comments Segs (test code = Segs) 56.4 45.0-75.0 [facility] HospitalHhvvrimJSEHKKPANW1131-40-04 18:46:00 Test Item Value Reference Range Interpretation Comments Monocytes (test code = Monocytes) 10.3 2.0-12.0 [facility] HospitalJhyzeegWHZHRJDULI7995-12-63 18:46:00 Test Item Value Reference Range Interpretation Comments Lymphocytes (test code = Lymphocytes) 28.0 20.0-40.0 [facility] HospitalEtnblxjCHXYRGPCTR1360-18-77 18:46:00 Test Item Value Reference Range Interpretation Comments Monocytes # (test code 0.5 See_Comment [Aut omated message] The = Monocytes #) system which generated this result tra nsmitted reference range : <=0.8. The reference r mitra was not used to int erpret this result as normal/abnormal . [facility] HospitalMwwwhnkHROMMMFWZN2244-18-22 18:46:00 Test Item Value Reference Range Interpretation Comments Basophils (test code = 1.1 See_Comment [Aut omated message] The Basophils) system which ge nerated this result tra nsmitted reference range : <=1.0. The reference r mitra was not used to int erpret this result as normal/abnormal . [facility] HospitalUolzoyaWRTXAMTCSB8080-89-21 18:46:00 Test Item Value Reference Range Interpretation Comments Lymphocytes # (test code = Lymphocytes 1.5 1.0-5.5 #) [facility] HospitalPbyksvmEMDDNHISPL6064-65-31 18:46:00 Test Item Value Reference Range Interpretation Comments Segs-Bands # (test code = Segs-Bands #) 2.9 1.5-8.1 [facility] HospitalEwfsdvgGUPQNUDXEP7166-43-46 18:46:00 Test Item Value Reference Range Interpretation Comments Eosinophils # (test code 0.2 See_Comment [A utomated message] The = Eosinophils #) system whic h generated this result tra nsmitted reference range : <=0.5. The reference r mitra was not used to int erpret this result as normal/abnormal . [facility] HospitalWoapkazARCPANNFXN0244-03-92 18:46:00 Test Item Value Reference Range Interpretation Comments Basophils # (test code 0.1 See_Comment [Aut omated message] The = Basophils #) system which generated this result tra nsmitted reference range : <=0.2. The reference r mitra was not used to int erpret this result as normal/abnormal . [facility] HospitalTvhviniVOLOBNNXBD4614-75-63 18:46:00 Test Item Value Reference Range Interpretation Comments PT (test code = PT) 11.2 s 12.0-14.7 [facility] HospitalBkrlaglQVDOEGSOXW6078-22-06 18:46:00 Test Item Value Reference Range Interpretation Comments INR (test code = INR) 0.82 0.85-1.17 [facility] HospitalYtjodsaPLBMFIXMLX0476-79-60 18:46:00 Test Item Value Reference Range Interpretation Comments PTT (test code = PTT) 28.6 s 22.9-35.8 [facility] HospitalKygmwhyJIJKDEDUJN7430-33-53 18:46:00 Test Item Value Reference Range Interpretation Comments MPV (test code = MPV) 8.1 7.4-10.4 [facility] HospitalVqwqmbjDAKSNJYSQU2203-38-25 18:46:00 Test Item Value Reference Range Interpretation Comments Platelet (test code = Platelet) 301 133-450 [facility] HospitalDohmjthPLWZOOJVGR1644-61-18 18:46:00 Test Item Value Reference Range Interpretation Comments RDW (test code = RDW) 14.5 11.5-14.5 [facility] HospitalRqpkqpmHCUSGEBCZX7105-25-23 18:46:00 Test Item Value Reference Range Interpretation Comments RBC (test code = RBC) 4.84 4.70-6.10 [facility] HospitalUlsgueoJFSFJVUUUD3354-01-60 18:46:00 Test Item Value Reference Range Interpretation Comments Hgb (test code = Hgb) 14.4 14.0-18.0 [facility] HospitalGysucmwQXHHIRMKJK1010-02-87 18:46:00 Test Item Value Reference Range Interpretation Comments WBC (test code = WBC) 5.2 3.7-10.4 [facility] HospitalWfjgshkFOGQQVWBTT9523-26-58 18:46:00 Test Item Value Reference Range Interpretation Comments MCH (test code = MCH) 29.8 pg 27.0-31.0 [facility] HospitalMnltysnBAKWBAMXOP1115-99-15 18:46:00 Test Item Value Reference Range Interpretation Comments MCV (test code = MCV) 92.0 80.0-94.0 [facility] HospitalZzcqmjfAWBRGRAMTK2819-50-36 18:46:00 Test Item Value Reference Range Interpretation Comments Hct (test code = Hct) 44.5 42.0-54.0 [facility] HospitalAijchdxZSLEDPFIQU4385-19-04 18:46:00 Test Item Value Reference Range Interpretation Comments MCHC (test code = MCHC) 32.4 32.0-36.0 [facility] LancasterFnispcgTWOXCZXMVI8281-02-06 18:46:00 Test Item Value Reference Range Interpretation Comments [place]-Hep C Ab (test Negative *NA*(07/22/14 code = [place]-Hep C 1:46 PM) Ab) [facility] AND [id number] 18:46:00 Test Item Value Reference Range Interpretation Comments UA Urobilinogen (test code = UA <=1.0 mg/dL 0.1-1.0 Urobilinogen) [facility] AND [id number] 18:46:00 Test Item Value Reference Range Interpretation Comments UA Sq Epi (test code = UA Sq Epi) None Seen [facility] AND [id number] 18:46:00 Test Item Value Reference Range Interpretation Comments UA Leuk Est (test Negative (07/22/14 1:46 code = UA Leuk Est) PM) [facility] AND [id number] 18:46:00 Test Item Value Reference Range Interpretation Comments UA Nitrite (test code Negative (07/22/14 1:46 = UA Nitrite) PM) [facility] AND [id number] 18:46:00 Test Item Value Reference Range Interpretation Comments UA Blood (test code = Negative (07/22/14 1:46 UA Blood) PM) [facility] AND [id number] 18:46:00 Test Item Value Reference Range Interpretation Comments UA Ketones (test code = UA Negative mg/dL Ketones) [facility] AND [id number] 18:46:00 Test Item Value Reference Range Interpretation Comments UA Bili (test code = Negative *NA*(07/22/14 UA Bili) 1:46 PM) [facility] AND [id number] 18:46:00 Test Item Value Reference Range Interpretation Comments UA Bacteria (test code = UA Occasional /HPF Bacteria) [facility] AND [id number] 18:46:00 Test Item Value Reference Range Interpretation Comments UA RBC (test code = no gt See_Comment [Automa elizabeth message] The UA RBC) system which ge nerated this result transmit elizabeth reference range : <=2. The reference range was not used to interpr et this result as lukas l/abnormal. [facility] AND [id number] 18:46:00 Test Item Value Reference Range Interpretation Comments UA WBC (test code = 1 See_Comment [Automa elizabeth message] The UA WBC) system which ge nerated this result transmit elizabeth reference range : <=5. The reference range was not used to interpr et this result as lukas l/abnormal. [facility] AND [id number] 18:46:00 Test Item Value Reference Range Interpretation Comments UA Glucose (test code = UA Glucose) 30 mg/dL [facility] AND [id number] 18:46:00 Test Item Value Reference Range Interpretation Comments UA Protein (test code = UA Negative mg/dL Protein) [facility] AND [id number] 18:46:00 Test Item Value Reference Range Interpretation Comments UA pH (test code = UA pH) 6.5 5.0-8.0 [facility] AND [id number] 18:46:00 Test Item Value Reference Range Interpretation Comments UA Turbidity (test code = Clear (07/22/14 1:46 UA Turbidity) PM) [facility] AND [id number] 18:46:00 Test Item Value Reference Range Interpretation Comments UA Spec Grav (test code = UA Spec Grav) 1.010 [facility] AND [id number] 18:46:00 Test Item Value Reference Range Interpretation Comments UA Color (test code = Light Yellow UA Color) *NA*(07/22/14 1:46 PM) [facility] [id number] 18:46:00 Test Item Value Reference Range Interpretation Comments Magnesium Lvl (test code = Magnesium 1.8 1.8-2.4 Lvl) [facility]ZcbuowmNTEXXJFIPWWU0046-41-05 18:46:00 Test Item Value Reference Range Interpretation Comments AGAP (test code = AGAP) 13.2 10.0-20.0 [facility] MichiganSvqrjkrKXIDPRBRKDVE2013-35-28 18:46:00 Test Item Value Reference Range Interpretation Comments B/C Ratio (test code = B/C Ratio) 18 6-25 [facility] MichiganSpfmegkGGWHAVMBRUJE2338-08-80 18:46:00 Test Item Value Reference Range Interpretation Comments A/G Ratio (test code = A/G Ratio) 1.1 0.7-1.6 [facility] MichiganOidsswyMVAELUPFGWXD7244-54-41 18:46:00 Test Item Value Reference Range Interpretation Comments Globulin (test code = Globulin) 3.3 2.0-4.0 [place] [id number] 18:46:00 Test Item Value Reference Range Interpretation Comments eGFR (test code = eGFR) 99 [facility] MichiganVqknvvaCSHWTNIGSPTT3485-65-03 18:46:00 Test Item Value Reference Range Interpretation Comments Calcium Lvl (test code = Calcium Lvl) 9.0 8.5-10.5 [facility] MichiganOxgqaajQNDHZGUWYIOB6378-44-07 18:46:00 Test Item Value Reference Range Interpretation Comments Chloride Lvl (test code = Chloride Lvl) 106 95-109 [facility] MichiganUnfgfuqYPZYZUPFZVFF7049-03-07 18:46:00 Test Item Value Reference Range Interpretation Comments Creatinine Lvl (test code = Creatinine 0.9 0.5-1.4 Lvl) [facility] MichiganOpkusmeCJAFQVESVRGA6783-08-63 18:46:00 Test Item Value Reference Range Interpretation Comments Potassium Lvl (test code = Potassium 4.2 3.5-5.1 Lvl) [facility]IkqmtvcVSFEUUJWVRYX6816-49-89 18:46:00 Test Item Value Reference Range Interpretation Comments Sodium Lvl (test code = Sodium Lvl) 139 135-145 [facility]MqndwftZPFVHKRFVQDZ5047-09-72 18:46:00 Test Item Value Reference Range Interpretation Comments CO2 (test code = CO2) 24 24-32 [facility] MichiganNevazkaFBRJQGQBKTZH8783-09-79 18:46:00 Test Item Value Reference Range Interpretation Comments BUN (test code = BUN) 16 7-22 [facility] MichiganMyxunlqPQXYHNPPIFQU2893-37-13 18:46:00 Test Item Value Reference Range Interpretation Comments Glucose Lvl (test code = Glucose Lvl) 141 70-99 [facility]PfsnmjoSUNNAZGOFAZH2717-05-35 18:46:00 Test Item Value Reference Range Interpretation Comments Albumin Lvl (test code = Albumin Lvl) 3.6 3.5-5.0 [facility] MichiganQkomhveGYMLCFAEMWIU6439-78-96 18:46:00 Test Item Value Reference Range Interpretation Comments Alk Phos (test code = Alk Phos) 65 39-136 [facility]VtrgaqmEWTPOEQGJEQB9458-57-93 18:46:00 Test Item Value Reference Range Interpretation Comments Bili Total (test code = Bili Total) 0.3 0.2-1.3 [facility] MichiganMbsnirjYEBCUHRVXUNU5705-90-56 18:46:00 Test Item Value Reference Range Interpretation Comments ALT (test code = ALT) 100 See_Comment [Auto mated message] The system which ge nerated this result transmit elizabeth reference range : <=65. The reference range was not used to interpr et this result as lukas l/abnormal. [facility] MichiganZjwqbwjCHIGTIYUHCUT6455-38-00 18:46:00 Test Item Value Reference Range Interpretation Comments AST (test code = AST) 53 See_Comment [Auto mated message] The system which ge nerated this result transmit elizabeth reference range : <=37. The reference range was not used to interpr et this result as lukas l/abnormal. [facility] MichiganDynfkupSMUSSPCUCWGF3779-24-18 18:46:00 Test Item Value Reference Range Interpretation Comments Total Protein (test code = Total 6.9 6.4-8.4 Protein) [facility] HospitalDgklvowDJLPTRASVB6314-38-02 18:46:00 Test Item Value Reference Range Interpretation Comments Eosinophils (test code = 4.2 See_Comment [A utomated message] The Eosinophils) system which ge nerated this result tra nsmitted reference range : <=4.0. The reference r mitra was not used to int erpret this result as normal/abnormal . [facility] HospitalCydwepwAOJQFIKPJN8371-48-63 18:46:00 Test Item Value Reference Range Interpretation Comments Segs (test code = Segs) 56.4 45.0-75.0 [facility] HospitalDqmvbvqENVEWKDDJE1883-13-81 18:46:00 Test Item Value Reference Range Interpretation Comments Monocytes (test code = Monocytes) 10.3 2.0-12.0 [facility] HospitalZgfojtgWUJEKOOAZD4308-09-23 18:46:00 Test Item Value Reference Range Interpretation Comments Lymphocytes (test code = Lymphocytes) 28.0 20.0-40.0 [facility] HospitalZtppycxSMXNQWFKCV5017-79-70 18:46:00 Test Item Value Reference Range Interpretation Comments Monocytes # (test code 0.5 See_Comment [Aut omated message] The = Monocytes #) system which generated this result tra nsmitted reference range : <=0.8. The reference r mitra was not used to int erpret this result as normal/abnormal . [facility] HospitalShxohhjLYLXTPLYXD3306-04-07 18:46:00 Test Item Value Reference Range Interpretation Comments Basophils (test code = 1.1 See_Comment [Aut omated message] The Basophils) system which ge nerated this result tra nsmitted reference range : <=1.0. The reference r mitra was not used to int erpret this result as normal/abnormal . [facility] HospitalBcxomifKNWYSIAEPN0717-96-81 18:46:00 Test Item Value Reference Range Interpretation Comments Lymphocytes # (test code = Lymphocytes 1.5 1.0-5.5 #) [facility] HospitalHqhjbdjPBOBPNYBJC2487-94-41 18:46:00 Test Item Value Reference Range Interpretation Comments Segs-Bands # (test code = Segs-Bands #) 2.9 1.5-8.1 [facility] HospitalAsxjrfvWFRHBFBSMR9869-33-98 18:46:00 Test Item Value Reference Range Interpretation Comments Eosinophils # (test code 0.2 See_Comment [A utomated message] The = Eosinophils #) system whic h generated this result tra nsmitted reference range : <=0.5. The reference r mitra was not used to int erpret this result as normal/abnormal . [facility] HospitalQmbwbgxUJICMOOWOS2073-67-88 18:46:00 Test Item Value Reference Range Interpretation Comments Basophils # (test code 0.1 See_Comment [Aut omated message] The = Basophils #) system which generated this result tra nsmitted reference range : <=0.2. The reference r mitra was not used to int erpret this result as normal/abnormal . [facility] HospitalOlpjroxPBXVVCLIXK2279-56-42 18:46:00 Test Item Value Reference Range Interpretation Comments PT (test code = PT) 11.2 s 12.0-14.7 [facility] HospitalLvzyvquYIPJAIZLQS7568-63-01 18:46:00 Test Item Value Reference Range Interpretation Comments INR (test code = INR) 0.82 0.85-1.17 [facility] HospitalTqilhyyABQCTNPIMT8502-16-11 18:46:00 Test Item Value Reference Range Interpretation Comments PTT (test code = PTT) 28.6 s 22.9-35.8 [facility] HospitalMppkwciJFDAIUAYQO4021-59-99 18:46:00 Test Item Value Reference Range Interpretation Comments MPV (test code = MPV) 8.1 7.4-10.4 [facility] HospitalRqsydqgYLWTFBFAVK0886-42-97 18:46:00 Test Item Value Reference Range Interpretation Comments Platelet (test code = Platelet) 301 133-450 [facility] HospitalWosiudiCAVIZEXTVK4209-27-70 18:46:00 Test Item Value Reference Range Interpretation Comments RDW (test code = RDW) 14.5 11.5-14.5 [facility]XdxzsofGIGNEXPVFN4040-05-15 18:46:00 Test Item Value Reference Range Interpretation Comments RBC (test code = RBC) 4.84 4.70-6.10 [facility] HospitalMjtdxddIQHEQDGHIQ5827-54-99 18:46:00 Test Item Value Reference Range Interpretation Comments Hgb (test code = Hgb) 14.4 14.0-18.0 [facility] HospitalRyesylzQFCEDIZHYN2215-08-64 18:46:00 Test Item Value Reference Range Interpretation Comments WBC (test code = WBC) 5.2 3.7-10.4 [facility] HospitalOuvjkvsPTRQNPEKFA2199-89-46 18:46:00 Test Item Value Reference Range Interpretation Comments MCH (test code = MCH) 29.8 pg 27.0-31.0 [facility] HospitalWqnhbmqSRTLRVUXOR6185-69-51 18:46:00 Test Item Value Reference Range Interpretation Comments MCV (test code = MCV) 92.0 80.0-94.0 [facility] LancasterHivrwxiXYRKNIKIRU0468-99-36 18:46:00 Test Item Value Reference Range Interpretation Comments Hct (test code = Hct) 44.5 42.0-54.0 [facility] HospitalFcpaknzOSRPSCVMQQ1871-39-98 18:46:00 Test Item Value Reference Range Interpretation Comments MCHC (test code = MCHC) 32.4 32.0-36.0 [facility] LancasterYwxyouhITIBTYKEQC7710-67-97 18:46:00 Test Item Value Reference Range Interpretation Comments [place]-Hep C Ab (test Negative *NA*(07/22/14 code = [place]-Hep C 1:46 PM) Ab) [facility] AND [id number] 18:46:00 Test Item Value Reference Range Interpretation Comments UA Urobilinogen (test code = UA <=1.0 mg/dL 0.1-1.0 Urobilinogen) [facility] AND [id number] 18:46:00 Test Item Value Reference Range Interpretation Comments UA Sq Epi (test code = UA Sq Epi) None Seen [facility] AND [id number] 18:46:00 Test Item Value Reference Range Interpretation Comments UA Leuk Est (test Negative (07/22/14 1:46 code = UA Leuk Est) PM) [facility] AND [id number] 18:46:00 Test Item Value Reference Range Interpretation Comments UA Nitrite (test code Negative (07/22/14 1:46 = UA Nitrite) PM) [facility] AND [id number] 18:46:00 Test Item Value Reference Range Interpretation Comments UA Blood (test code = Negative (07/22/14 1:46 UA Blood) PM) [facility] AND [id number] 18:46:00 Test Item Value Reference Range Interpretation Comments UA Ketones (test code = UA Negative mg/dL Ketones) [facility] AND [id number] 18:46:00 Test Item Value Reference Range Interpretation Comments UA Bili (test code = Negative *NA*(07/22/14 UA Bili) 1:46 PM) [facility] AND [id number] 18:46:00 Test Item Value Reference Range Interpretation Comments UA Bacteria (test code = UA Occasional /HPF Bacteria) [facility] AND [id number] 18:46:00 Test Item Value Reference Range Interpretation Comments UA RBC (test code = no gt See_Comment [Automa elizabeth message] The UA RBC) system which ge nerated this result transmit elizabeth reference range : <=2. The reference range was not used to interpr et this result as lukas l/abnormal. [facility] AND [id number] 18:46:00 Test Item Value Reference Range Interpretation Comments UA WBC (test code = 1 See_Comment [Automa elizabeth message] The UA WBC) system which ge nerated this result transmit elizabeth reference range : <=5. The reference range was not used to interpr et this result as lukas l/abnormal. [facility] AND [id number] 18:46:00 Test Item Value Reference Range Interpretation Comments UA Glucose (test code = UA Glucose) 30 mg/dL [facility] AND [id number] 18:46:00 Test Item Value Reference Range Interpretation Comments UA Protein (test code = UA Negative mg/dL Protein) [facility] AND [id number] 18:46:00 Test Item Value Reference Range Interpretation Comments UA pH (test code = UA pH) 6.5 5.0-8.0 [facility] AND [id number] 18:46:00 Test Item Value Reference Range Interpretation Comments UA Turbidity (test code = Clear (07/22/14 1:46 UA Turbidity) PM) [facility] [id number] 18:46:00 Test Item Value Reference Range Interpretation Comments UA Spec Grav (test code = UA Spec Grav) 1.010 [facility] AND [id number] 18:46:00 Test Item Value Reference Range Interpretation Comments UA Color (test code = Light Yellow UA Color) *NA*(07/22/14 1:46 PM) [facility] CenterannCHEM RMXHK4716-04-23 18:46:00 Test Item Value Reference Range Interpretation Comments Magnesium Lvl (test code = Magnesium 1.8 1.8-2.4 Lvl) [facility]KodhxwwZFQZYOZSXWZX2435-56-90 18:46:00 Test Item Value Reference Range Interpretation Comments AGAP (test code = AGAP) 13.2 10.0-20.0 [facility]RldalocGIGSNARPHOCM3932-14-33 18:46:00 Test Item Value Reference Range Interpretation Comments B/C Ratio (test code = B/C Ratio) 18 6-25 [facility] MichiganNtvkgocZJJMRMHAFPMR1191-69-93 18:46:00 Test Item Value Reference Range Interpretation Comments A/G Ratio (test code = A/G Ratio) 1.1 0.7-1.6 [facility] MichiganZzcrjsvZWHYDUMYUIQF2628-88-08 18:46:00 Test Item Value Reference Range Interpretation Comments Globulin (test code = Globulin) 3.3 2.0-4.0 [facility] MichiganPbcninaJQLETLAFBVFO6741-62-82 18:46:00 Test Item Value Reference Range Interpretation Comments eGFR (test code = eGFR) 99 [facility] MichiganFptpwkgGUMQNLFJJFZU2617-56-71 18:46:00 Test Item Value Reference Range Interpretation Comments Calcium Lvl (test code = Calcium Lvl) 9.0 8.5-10.5 [facility] MichiganDusvqvgDGWEUGCINYTE8219-11-49 18:46:00 Test Item Value Reference Range Interpretation Comments Chloride Lvl (test code = Chloride Lvl) 106 95-109 [facility] MichiganTrzgkdtBYANCBUJKRGQ1683-30-73 18:46:00 Test Item Value Reference Range Interpretation Comments Creatinine Lvl (test code = Creatinine 0.9 0.5-1.4 Lvl) [facility] MichiganIzyuahaADZGJRJVOTDM2877-91-64 18:46:00 Test Item Value Reference Range Interpretation Comments Potassium Lvl (test code = Potassium 4.2 3.5-5.1 Lvl) [facility] MichiganZvumtztIGSGGOEHSHJU7456-44-36 18:46:00 Test Item Value Reference Range Interpretation Comments Sodium Lvl (test code = Sodium Lvl) 139 135-145 [facility]FabldcpTVDZRNMFOCZY8846-58-70 18:46:00 Test Item Value Reference Range Interpretation Comments CO2 (test code = CO2) 24 24-32 [facility] MichiganCuzgqmyHXUNFSBXLDQF8675-50-68 18:46:00 Test Item Value Reference Range Interpretation Comments BUN (test code = BUN) 16 7-22 [facility] MichiganFnfhhdtIHNZKKTKZGFD8396-00-13 18:46:00 Test Item Value Reference Range Interpretation Comments Glucose Lvl (test code = Glucose Lvl) 141 70-99 [facility]EiesmqqIJVXUEZGBUHM4442-36-13 18:46:00 Test Item Value Reference Range Interpretation Comments Albumin Lvl (test code = Albumin Lvl) 3.6 3.5-5.0 [facility] MichiganQpnpysyHGGDBOCFFXQA8837-44-85 18:46:00 Test Item Value Reference Range Interpretation Comments Alk Phos (test code = Alk Phos) 65 39-136 [facility] MichiganLdmrumpAHPYTINLXHXS5791-49-97 18:46:00 Test Item Value Reference Range Interpretation Comments Bili Total (test code = Bili Total) 0.3 0.2-1.3 [facility] MichiganJkdqpdoZCWMUWGUOSQG9814-10-82 18:46:00 Test Item Value Reference Range Interpretation Comments ALT (test code = ALT) 100 See_Comment [Auto mated message] The system which ge nerated this result transmit elizabeth reference range : <=65. The reference range was not used to interpr et this result as lukas l/abnormal. [facility] MichiganCftrjbqGOZCKARQCSSH0695-98-79 18:46:00 Test Item Value Reference Range Interpretation Comments AST (test code = AST) 53 See_Comment [Auto mated message] The system which ge nerated this result transmit elizabeth reference range : <=37. The reference range was not used to interpr et this result as lukas l/abnormal. [facility] MichiganAnklnoeIMSLBTUTGNIE6601-08-62 18:46:00 Test Item Value Reference Range Interpretation Comments Total Protein (test code = Total 6.9 6.4-8.4 Protein) [facility] HospitalGkabfjeUJTXJWOWIK8651-88-27 18:46:00 Test Item Value Reference Range Interpretation Comments Eosinophils (test code = 4.2 See_Comment [A utomated message] The Eosinophils) system which ge nerated this result tra nsmitted reference range : <=4.0. The reference r mitra was not used to int erpret this result as normal/abnormal . [facility] HospitalDaanlufRAEWSHNIDW5676-19-70 18:46:00 Test Item Value Reference Range Interpretation Comments Segs (test code = Segs) 56.4 45.0-75.0 [facility] HospitalAkybqqyVHAOJJQEFO9003-85-84 18:46:00 Test Item Value Reference Range Interpretation Comments Monocytes (test code = Monocytes) 10.3 2.0-12.0 [facility] HospitalMcyfwjbXZLMMBZUXL1932-57-29 18:46:00 Test Item Value Reference Range Interpretation Comments Lymphocytes (test code = Lymphocytes) 28.0 20.0-40.0 [facility] HospitalSmguzjnJAIKECLHNR4342-78-68 18:46:00 Test Item Value Reference Range Interpretation Comments Monocytes # (test code 0.5 See_Comment [Aut omated message] The = Monocytes #) system which generated this result tra nsmitted reference range : <=0.8. The reference r mitra was not used to int erpret this result as normal/abnormal . [facility] HospitalEejwrraAXMXKQWWDZ7037-90-33 18:46:00 Test Item Value Reference Range Interpretation Comments Basophils (test code = 1.1 See_Comment [Aut omated message] The Basophils) system which ge nerated this result tra nsmitted reference range : <=1.0. The reference r mitra was not used to int erpret this result as normal/abnormal . [facility] HospitalRjorddlXBKYGAFTVR1114-48-87 18:46:00 Test Item Value Reference Range Interpretation Comments Lymphocytes # (test code = Lymphocytes 1.5 1.0-5.5 #) [facility] HospitalRfvlrmeHUQRJIHWSJ4472-01-65 18:46:00 Test Item Value Reference Range Interpretation Comments Segs-Bands # (test code = Segs-Bands #) 2.9 1.5-8.1 [facility] HospitalBlaelgnEKUCESUSBD4785-49-38 18:46:00 Test Item Value Reference Range Interpretation Comments Eosinophils # (test code 0.2 See_Comment [A utomated message] The = Eosinophils #) system whic h generated this result tra nsmitted reference range : <=0.5. The reference r mitra was not used to int erpret this result as normal/abnormal . [facility] HospitalQjzkbixRZFBKHFTVW3515-16-63 18:46:00 Test Item Value Reference Range Interpretation Comments Basophils # (test code 0.1 See_Comment [Aut omated message] The = Basophils #) system which generated this result tra nsmitted reference range : <=0.2. The reference r mitra was not used to int erpret this result as normal/abnormal . [facility] HospitalEougybtIPEFSVVDJI6068-13-08 18:46:00 Test Item Value Reference Range Interpretation Comments PT (test code = PT) 11.2 s 12.0-14.7 [facility] HospitalJcvtzxhGEXEVPPFKL3463-99-56 18:46:00 Test Item Value Reference Range Interpretation Comments INR (test code = INR) 0.82 0.85-1.17 [facility] HospitalMlotgdkAEXMSAYPUE7258-10-60 18:46:00 Test Item Value Reference Range Interpretation Comments PTT (test code = PTT) 28.6 s 22.9-35.8 [facility] HospitalSefsmdeWXORRSISME5101-86-93 18:46:00 Test Item Value Reference Range Interpretation Comments MPV (test code = MPV) 8.1 7.4-10.4 [facility] HospitalJxkofjrHNPJCRQCFK8589-08-99 18:46:00 Test Item Value Reference Range Interpretation Comments Platelet (test code = Platelet) 301 133-450 [facility] HospitalBstveawHRBQZVDIKU3333-41-90 18:46:00 Test Item Value Reference Range Interpretation Comments RDW (test code = RDW) 14.5 11.5-14.5 [facility] HospitalVqefrkzUUKGGNVJKA8225-33-52 18:46:00 Test Item Value Reference Range Interpretation Comments RBC (test code = RBC) 4.84 4.70-6.10 [facility] HospitalFkztfuvTZICIEAMII3709-98-09 18:46:00 Test Item Value Reference Range Interpretation Comments Hgb (test code = Hgb) 14.4 14.0-18.0 [facility] HospitalDoikyroQNACHZMRKO6959-78-85 18:46:00 Test Item Value Reference Range Interpretation Comments WBC (test code = WBC) 5.2 3.7-10.4 [facility]EyuhdocMQELJDUQLL3039-60-76 18:46:00 Test Item Value Reference Range Interpretation Comments MCH (test code = MCH) 29.8 pg 27.0-31.0 [facility]KiqmilfYNQLROHOFX1283-26-07 18:46:00 Test Item Value Reference Range Interpretation Comments MCV (test code = MCV) 92.0 80.0-94.0 [facility] HospitalBdoiqdxXJJIXOCORI3067-08-43 18:46:00 Test Item Value Reference Range Interpretation Comments Hct (test code = Hct) 44.5 42.0-54.0 [facility] HospitalUqaqevhIHGAAZWPIE3916-22-94 18:46:00 Test Item Value Reference Range Interpretation Comments MCHC (test code = MCHC) 32.4 32.0-36.0 [facility] LancasterDqcqyhsGDBBMMYKCD7034-00-48 18:46:00 Test Item Value Reference Range Interpretation Comments [place]-Hep C Ab (test Negative *NA*(07/22/14 code = [place]-Hep C 1:46 PM) Ab) [facility] AND [id number] 18:46:00 Test Item Value Reference Range Interpretation Comments UA Urobilinogen (test code = UA <=1.0 mg/dL 0.1-1.0 Urobilinogen) [facility] AND [id number] 18:46:00 Test Item Value Reference Range Interpretation Comments UA Sq Epi (test code = UA Sq Epi) None Seen [facility] AND [id number] 18:46:00 Test Item Value Reference Range Interpretation Comments UA Leuk Est (test Negative (07/22/14 1:46 code = UA Leuk Est) PM) [facility] AND [id number] 18:46:00 Test Item Value Reference Range Interpretation Comments UA Nitrite (test code Negative (07/22/14 1:46 = UA Nitrite) PM) [facility] AND [id number] 18:46:00 Test Item Value Reference Range Interpretation Comments UA Blood (test code = Negative (07/22/14 1:46 UA Blood) PM) [facility] AND [id number] 18:46:00 Test Item Value Reference Range Interpretation Comments UA Ketones (test code = UA Negative mg/dL Ketones) [facility] AND [id number] 18:46:00 Test Item Value Reference Range Interpretation Comments UA Bili (test code = Negative *NA*(07/22/14 UA Bili) 1:46 PM) [facility] AND [id number] 18:46:00 Test Item Value Reference Range Interpretation Comments UA Bacteria (test code = UA Occasional /HPF Bacteria) [facility] AND [id number] 18:46:00 Test Item Value Reference Range Interpretation Comments UA RBC (test code = no gt See_Comment [Automa elizabeth message] The UA RBC) system which ge nerated this result transmit elizabeth reference range : <=2. The reference range was not used to interpr et this result as lukas l/abnormal. [facility] AND [id number] 18:46:00 Test Item Value Reference Range Interpretation Comments UA WBC (test code = 1 See_Comment [Automa elizabeth message] The UA WBC) system which ge nerated this result transmit elizabeth reference range : <=5. The reference range was not used to interpr et this result as lukas l/abnormal. [facility] AND [id number] 18:46:00 Test Item Value Reference Range Interpretation Comments UA Glucose (test code = UA Glucose) 30 mg/dL [facility] AND [id number] 18:46:00 Test Item Value Reference Range Interpretation Comments UA Protein (test code = UA Negative mg/dL Protein) [facility] AND [id number] 18:46:00 Test Item Value Reference Range Interpretation Comments UA pH (test code = UA pH) 6.5 5.0-8.0 [facility] AND [id number] 18:46:00 Test Item Value Reference Range Interpretation Comments UA Turbidity (test code = Clear (07/22/14 1:46 UA Turbidity) PM) [facility] AND [id number] 18:46:00 Test Item Value Reference Range Interpretation Comments UA Spec Grav (test code = UA Spec Grav) 1.010 [facility] AND [id number] 18:46:00 Test Item Value Reference Range Interpretation Comments UA Color (test code = Light Yellow UA Color) *NA*(07/22/14 1:46 PM) [facility]2015-06-09 18:46:00 Test Item Value Reference Range Interpretation Comments Magnesium Lvl (test code = Magnesium 1.8 1.8-2.4 Lvl) [facility]SvoypwjUNTFZJYDBFUD8613-94-32 18:46:00 Test Item Value Reference Range Interpretation Comments AGAP (test code = AGAP) 13.2 10.0-20.0 [facility] MichiganSilzkvwCSZLDWJZWGYB6843-47-65 18:46:00 Test Item Value Reference Range Interpretation Comments B/C Ratio (test code = B/C Ratio) 18 6-25 [facility] MichiganKtlavivJYCVIJBTMQSU0671-10-41 18:46:00 Test Item Value Reference Range Interpretation Comments A/G Ratio (test code = A/G Ratio) 1.1 0.7-1.6 [facility] MichiganDvejkbaGNRATKTQXPBY1990-87-74 18:46:00 Test Item Value Reference Range Interpretation Comments Globulin (test code = Globulin) 3.3 2.0-4.0 [facility] MichiganFdirmuaNNGWPJEDQFEI2433-89-38 18:46:00 Test Item Value Reference Range Interpretation Comments eGFR (test code = eGFR) 99 [facility] MichiganSuxuklsZUZDBMUPVBWS7950-35-90 18:46:00 Test Item Value Reference Range Interpretation Comments Calcium Lvl (test code = Calcium Lvl) 9.0 8.5-10.5 [facility] MichiganPfhkwxaZBVAACWMTCPE1386-57-84 18:46:00 Test Item Value Reference Range Interpretation Comments Chloride Lvl (test code = Chloride Lvl) 106 95-109 [facility] MichiganIscyqayRMVWXRGZPBQM5792-82-77 18:46:00 Test Item Value Reference Range Interpretation Comments Creatinine Lvl (test code = Creatinine 0.9 0.5-1.4 Lvl) [facility]PffuhacNHRYHEIFHUMM5337-65-15 18:46:00 Test Item Value Reference Range Interpretation Comments Potassium Lvl (test code = Potassium 4.2 3.5-5.1 Lvl) [facility] MichiganYwyixnsVOVBGETBEZJA2608-35-52 18:46:00 Test Item Value Reference Range Interpretation Comments Sodium Lvl (test code = Sodium Lvl) 139 135-145 [facility] MichiganBnhrfzqWJABIHUHHTIP8684-30-73 18:46:00 Test Item Value Reference Range Interpretation Comments CO2 (test code = CO2) 24 24-32 [facility] MichiganUjhfigtFFWSXUHOBSJY6814-36-98 18:46:00 Test Item Value Reference Range Interpretation Comments BUN (test code = BUN) 16 7-22 [facility] MichiganTeegownXBKUYDVEGLCO7149-75-36 18:46:00 Test Item Value Reference Range Interpretation Comments Glucose Lvl (test code = Glucose Lvl) 141 70-99 [facility] MichiganNcxrygpTLLXBVRPXEGC9644-95-60 18:46:00 Test Item Value Reference Range Interpretation Comments Albumin Lvl (test code = Albumin Lvl) 3.6 3.5-5.0 [facility]SejdquwOTYXBSXBJPDL6805-02-41 18:46:00 Test Item Value Reference Range Interpretation Comments Alk Phos (test code = Alk Phos) 65 39-136 [facility]EvhnquaGWXKTCWRBRIE5540-70-81 18:46:00 Test Item Value Reference Range Interpretation Comments Bili Total (test code = Bili Total) 0.3 0.2-1.3 [facility] MichiganClskmwzBAJWXZXCHPZR3979-78-14 18:46:00 Test Item Value Reference Range Interpretation Comments ALT (test code = ALT) 100 See_Comment [Auto mated message] The system which ge nerated this result transmit elizabeth reference range : <=65. The reference range was not used to interpr et this result as lukas l/abnormal. [facility] MichiganBxozaujOGYJMKPOGQTB7212-60-80 18:46:00 Test Item Value Reference Range Interpretation Comments AST (test code = AST) 53 See_Comment [Auto mated message] The system which ge nerated this result transmit elizabeth reference range : <=37. The reference range was not used to interpr et this result as lukas l/abnormal. [facility] MichiganVzxqvuzFQUUYJHFPBGW9686-98-41 18:46:00 Test Item Value Reference Range Interpretation Comments Total Protein (test code = Total 6.9 6.4-8.4 Protein) [facility] HospitalQxbdssaPKAHREUOIM0882-09-70 18:46:00 Test Item Value Reference Range Interpretation Comments Eosinophils (test code = 4.2 See_Comment [A utomated message] The Eosinophils) system which ge nerated this result tra nsmitted reference range : <=4.0. The reference r mitra was not used to int erpret this result as normal/abnormal . [facility] HospitalLkyvcxvDYAUXSVPGN4735-22-69 18:46:00 Test Item Value Reference Range Interpretation Comments Segs (test code = Segs) 56.4 45.0-75.0 [facility] HospitalVpomwkcYPIXCPCCEM4706-96-10 18:46:00 Test Item Value Reference Range Interpretation Comments Monocytes (test code = Monocytes) 10.3 2.0-12.0 [facility] HospitalKgoutunKAJRBGPDJL8658-95-08 18:46:00 Test Item Value Reference Range Interpretation Comments Lymphocytes (test code = Lymphocytes) 28.0 20.0-40.0 [facility] HospitalPzmsgykNNQOSXUOOP2224-92-08 18:46:00 Test Item Value Reference Range Interpretation Comments Monocytes # (test code 0.5 See_Comment [Aut omated message] The = Monocytes #) system which generated this result tra nsmitted reference range : <=0.8. The reference r mitra was not used to int erpret this result as normal/abnormal . [facility] HospitalGbsppvnPVYWFFMQMK0076-94-76 18:46:00 Test Item Value Reference Range Interpretation Comments Basophils (test code = 1.1 See_Comment [Aut omated message] The Basophils) system which ge nerated this result tra nsmitted reference range : <=1.0. The reference r mitra was not used to int erpret this result as normal/abnormal . [facility] HospitalHbtdwinVDDWUXLTSF8788-63-26 18:46:00 Test Item Value Reference Range Interpretation Comments Lymphocytes # (test code = Lymphocytes 1.5 1.0-5.5 #) [facility] HospitalDyoowmxSIYMXPUBHP4298-31-21 18:46:00 Test Item Value Reference Range Interpretation Comments Segs-Bands # (test code = Segs-Bands #) 2.9 1.5-8.1 [facility] HospitalZjojljbXOEKJVRJVZ2512-08-22 18:46:00 Test Item Value Reference Range Interpretation Comments Eosinophils # (test code 0.2 See_Comment [A utomated message] The = Eosinophils #) system ic h generated this result tra nsmitted reference range : <=0.5. The reference r mitra was not used to int erpret this result as normal/abnormal . [facility] HospitalGcqflxtTFFCPCDXFD0246-11-32 18:46:00 Test Item Value Reference Range Interpretation Comments Basophils # (test code 0.1 See_Comment [Aut omated message] The = Basophils #) system which generated this result tra nsmitted reference range : <=0.2. The reference r mitra was not used to int erpret this result as normal/abnormal . [facility] HospitalNwmqbpkTWUWIQHTHR1356-26-86 18:46:00 Test Item Value Reference Range Interpretation Comments PT (test code = PT) 11.2 s 12.0-14.7 [facility] HospitalQgekzwdBAVSNKJPUD4868-04-43 18:46:00 Test Item Value Reference Range Interpretation Comments INR (test code = INR) 0.82 0.85-1.17 [facility] HospitalNqczaytFALVTJWGFO7138-88-74 18:46:00 Test Item Value Reference Range Interpretation Comments PTT (test code = PTT) 28.6 s 22.9-35.8 [facility] HospitalAwlxiqnDJFBSFSNEV1763-91-13 18:46:00 Test Item Value Reference Range Interpretation Comments MPV (test code = MPV) 8.1 7.4-10.4 [facility] HospitalQwkoqanDWCNSAARCF4852-15-49 18:46:00 Test Item Value Reference Range Interpretation Comments Platelet (test code = Platelet) 301 133-450 [facility] HospitalZxareuvEZDLKYNDMQ2359-11-36 18:46:00 Test Item Value Reference Range Interpretation Comments RDW (test code = RDW) 14.5 11.5-14.5 [facility] HospitalQibudcbCJPDHFGGIK0924-00-16 18:46:00 Test Item Value Reference Range Interpretation Comments RBC (test code = RBC) 4.84 4.70-6.10 [facility] HospitalByxlkoyWAJRQCWDFN5407-92-87 18:46:00 Test Item Value Reference Range Interpretation Comments Hgb (test code = Hgb) 14.4 14.0-18.0 [facility] HospitalQpqkhcpHLIIIPYPPZ6766-38-84 18:46:00 Test Item Value Reference Range Interpretation Comments WBC (test code = WBC) 5.2 3.7-10.4 [facility] HospitalVzgompxIILVNEULYH0974-11-11 18:46:00 Test Item Value Reference Range Interpretation Comments MCH (test code = MCH) 29.8 pg 27.0-31.0 [facility] HospitalSlpirctIKFVIWFWAQ6887-79-72 18:46:00 Test Item Value Reference Range Interpretation Comments MCV (test code = MCV) 92.0 80.0-94.0 [facility] HospitalJahavreCIRUNVQGTC9555-35-63 18:46:00 Test Item Value Reference Range Interpretation Comments Hct (test code = Hct) 44.5 42.0-54.0 [facility] HospitalIltbjmsXQGZZOQDBS2257-82-95 18:46:00 Test Item Value Reference Range Interpretation Comments MCHC (test code = MCHC) 32.4 32.0-36.0 [facility] LancasterSispqdiSBZHKKWAPU1769-34-70 18:46:00 Test Item Value Reference Range Interpretation Comments [place]-Hep C Ab (test Negative *NA*(07/22/14 code = [place]-Hep C 1:46 PM) Ab) [facility] AND [id number] 18:46:00 Test Item Value Reference Range Interpretation Comments UA Urobilinogen (test code = UA <=1.0 mg/dL 0.1-1.0 Urobilinogen) [facility] AND [id number] 18:46:00 Test Item Value Reference Range Interpretation Comments UA Sq Epi (test code = UA Sq Epi) None Seen [facility] AND [id number] 18:46:00 Test Item Value Reference Range Interpretation Comments UA Leuk Est (test Negative (07/22/14 1:46 code = UA Leuk Est) PM) [facility] AND [id number] 18:46:00 Test Item Value Reference Range Interpretation Comments UA Nitrite (test code Negative (07/22/14 1:46 = UA Nitrite) PM) [facility] AND [id number] 18:46:00 Test Item Value Reference Range Interpretation Comments UA Blood (test code = Negative (07/22/14 1:46 UA Blood) PM) [facility] AND [id number] 18:46:00 Test Item Value Reference Range Interpretation Comments UA Ketones (test code = UA Negative mg/dL Ketones) [facility] AND [id number] 18:46:00 Test Item Value Reference Range Interpretation Comments UA Bili (test code = Negative *NA*(07/22/14 UA Bili) 1:46 PM) [facility] AND [id number] 18:46:00 Test Item Value Reference Range Interpretation Comments UA Bacteria (test code = UA Occasional /HPF Bacteria) [facility] AND [id number] 18:46:00 Test Item Value Reference Range Interpretation Comments UA RBC (test code = no gt See_Comment [Automa elizabeth message] The UA RBC) system which ge nerated this result transmit elizabeth reference range : <=2. The reference range was not used to interpr et this result as lukas l/abnormal. [facility] AND [id number] 18:46:00 Test Item Value Reference Range Interpretation Comments UA WBC (test code = 1 See_Comment [Automa elizabeth message] The UA WBC) system which ge nerated this result transmit elizabeth reference range : <=5. The reference range was not used to interpr et this result as lukas l/abnormal. [facility] AND [id number] 18:46:00 Test Item Value Reference Range Interpretation Comments UA Glucose (test code = UA Glucose) 30 mg/dL [facility] AND [id number] 18:46:00 Test Item Value Reference Range Interpretation Comments UA Protein (test code = UA Negative mg/dL Protein) [facility] AND [id number] 18:46:00 Test Item Value Reference Range Interpretation Comments UA pH (test code = UA pH) 6.5 5.0-8.0 [facility] AND [id number] 18:46:00 Test Item Value Reference Range Interpretation Comments UA Turbidity (test code = Clear (07/22/14 1:46 UA Turbidity) PM) [facility] AND [id number] 18:46:00 Test Item Value Reference Range Interpretation Comments UA Spec Grav (test code = UA Spec Grav) 1.010 [facility] AND [id number] 18:46:00 Test Item Value Reference Range Interpretation Comments UA Color (test code = Light Yellow UA Color) *NA*(07/22/14 1:46 PM) [facility] [id number] 18:46:00 Test Item Value Reference Range Interpretation Comments Magnesium Lvl (test code = Magnesium 1.8 1.8-2.4 Lvl) [facility]PvlbkncULVEZSYFSCGR5597-73-59 18:46:00 Test Item Value Reference Range Interpretation Comments AGAP (test code = AGAP) 13.2 10.0-20.0 [facility] HospitalWtjdytgUNDFGWHRZJBF8745-14-16 18:46:00 Test Item Value Reference Range Interpretation Comments B/C Ratio (test code = B/C Ratio) 18 6-25 [facility]WzliktcPKHROBUNJVIN2699-69-03 18:46:00 Test Item Value Reference Range Interpretation Comments A/G Ratio (test code = A/G Ratio) 1.1 0.7-1.6 [facility]UvdlkfvBWLUDPJILWNP5181-12-96 18:46:00 Test Item Value Reference Range Interpretation Comments Globulin (test code = Globulin) 3.3 2.0-4.0 [facility]YrywmslDSCEWLBJPQZS6081-34-45 18:46:00 Test Item Value Reference Range Interpretation Comments eGFR (test code = eGFR) 99 [facility] MichiganEtmbetzJFJYMULOIXTE3116-07-22 18:46:00 Test Item Value Reference Range Interpretation Comments Calcium Lvl (test code = Calcium Lvl) 9.0 8.5-10.5 [facility]SftgmqzREUUTXWAHBPQ6895-10-95 18:46:00 Test Item Value Reference Range Interpretation Comments Chloride Lvl (test code = Chloride Lvl) 106 95-109 [facility] MichiganLfzjkarBNSVDDFCMHYP6869-81-64 18:46:00 Test Item Value Reference Range Interpretation Comments Creatinine Lvl (test code = Creatinine 0.9 0.5-1.4 Lvl) [facility]QtihkkoKQOPQZCCNVKS3230-78-50 18:46:00 Test Item Value Reference Range Interpretation Comments Potassium Lvl (test code = Potassium 4.2 3.5-5.1 Lvl) [facility]HkjdodeVQPCURGZZDDV5441-70-30 18:46:00 Test Item Value Reference Range Interpretation Comments Sodium Lvl (test code = Sodium Lvl) 139 135-145 [facility]XnwmuxcUULXQZFDAMGK3635-89-05 18:46:00 Test Item Value Reference Range Interpretation Comments CO2 (test code = CO2) 24 24-32 [facility] MichiganPotyafbCZUBNXNQHNOQ8666-86-59 18:46:00 Test Item Value Reference Range Interpretation Comments BUN (test code = BUN) 16 7-22 [facility]LgsjcmtIQKPTJDOFPJD2815-08-78 18:46:00 Test Item Value Reference Range Interpretation Comments Glucose Lvl (test code = Glucose Lvl) 141 70-99 [facility]MwopceeEJTRGBNKLXIO2370-81-05 18:46:00 Test Item Value Reference Range Interpretation Comments Albumin Lvl (test code = Albumin Lvl) 3.6 3.5-5.0 [facility] MichiganUgiucrpJVMYBRUXURMH3577-58-68 18:46:00 Test Item Value Reference Range Interpretation Comments Alk Phos (test code = Alk Phos) 65 39-136 [facility] MichiganAvmucbxHPRYZFPSOWWA6916-25-79 18:46:00 Test Item Value Reference Range Interpretation Comments Bili Total (test code = Bili Total) 0.3 0.2-1.3 [facility] MichiganGjxswuuUUCXTGNXKKDT2959-19-25 18:46:00 Test Item Value Reference Range Interpretation Comments ALT (test code = ALT) 100 See_Comment [Auto mated message] The system which ge nerated this result transmit elizabeth reference range : <=65. The reference range was not used to interpr et this result as lukas l/abnormal. [facility] MichiganPnytdcsRSSLDMKDJVAM8185-58-90 18:46:00 Test Item Value Reference Range Interpretation Comments AST (test code = AST) 53 See_Comment [Auto mated message] The system which ge nerated this result transmit elizabeth reference range : <=37. The reference range was not used to interpr et this result as lukas l/abnormal. [facility]IsogpvqSLHLVRJUNCUX8976-62-23 18:46:00 Test Item Value Reference Range Interpretation Comments Total Protein (test code = Total 6.9 6.4-8.4 Protein) [facility] HospitalCivsekuYGGQGRFQCR1364-13-11 18:46:00 Test Item Value Reference Range Interpretation Comments Eosinophils (test code = 4.2 See_Comment [A utomated message] The Eosinophils) system which ge nerated this result tra nsmitted reference range : <=4.0. The reference r mitra was not used to int erpret this result as normal/abnormal . [facility] HospitalAkoyoxrRHASYPRQGB2333-79-16 18:46:00 Test Item Value Reference Range Interpretation Comments Segs (test code = Segs) 56.4 45.0-75.0 [facility] HospitalYlhjimwNTWRXKGSMY2734-82-84 18:46:00 Test Item Value Reference Range Interpretation Comments Monocytes (test code = Monocytes) 10.3 2.0-12.0 [facility] HospitalHjuueamRHUUZNLWVU4089-71-70 18:46:00 Test Item Value Reference Range Interpretation Comments Lymphocytes (test code = Lymphocytes) 28.0 20.0-40.0 [facility] HospitalDkvqrvePIGBNURNYC3074-71-87 18:46:00 Test Item Value Reference Range Interpretation Comments Monocytes # (test code 0.5 See_Comment [Aut omated message] The = Monocytes #) system which generated this result tra nsmitted reference range : <=0.8. The reference r mitra was not used to int erpret this result as normal/abnormal . [facility] HospitalKsqinzgFUIDXTZRIJ4011-00-18 18:46:00 Test Item Value Reference Range Interpretation Comments Basophils (test code = 1.1 See_Comment [Aut omated message] The Basophils) system which ge nerated this result tra nsmitted reference range : <=1.0. The reference r mitra was not used to int erpret this result as normal/abnormal . [facility] HospitalQmjggfzGUWOGUYNZT9404-80-65 18:46:00 Test Item Value Reference Range Interpretation Comments Lymphocytes # (test code = Lymphocytes 1.5 1.0-5.5 #) [facility] HospitalKvwptvgQOSHTGZNSV5271-20-99 18:46:00 Test Item Value Reference Range Interpretation Comments Segs-Bands # (test code = Segs-Bands #) 2.9 1.5-8.1 [facility] HospitalQwoihorWBCMFEWNQD3019-39-28 18:46:00 Test Item Value Reference Range Interpretation Comments Eosinophils # (test code 0.2 See_Comment [A utomated message] The = Eosinophils #) system whic h generated this result tra nsmitted reference range : <=0.5. The reference r mitra was not used to int erpret this result as normal/abnormal . [facility] HospitalRwhwqwiUHLEJJTKTV1995-48-32 18:46:00 Test Item Value Reference Range Interpretation Comments Basophils # (test code 0.1 See_Comment [Aut omated message] The = Basophils #) system which generated this result tra nsmitted reference range : <=0.2. The reference r mitra was not used to int erpret this result as normal/abnormal . [facility]WiazhmjZQQNIIYBKX6907-52-78 18:46:00 Test Item Value Reference Range Interpretation Comments PT (test code = PT) 11.2 s 12.0-14.7 [facility] HospitalCoxestbSGFOWVAJVR0418-89-18 18:46:00 Test Item Value Reference Range Interpretation Comments INR (test code = INR) 0.82 0.85-1.17 [facility] HospitalLazqganYCGAOPLTFT2207-02-14 18:46:00 Test Item Value Reference Range Interpretation Comments PTT (test code = PTT) 28.6 s 22.9-35.8 [facility] HospitalWwrzvslRTHPIXNUGT0151-15-24 18:46:00 Test Item Value Reference Range Interpretation Comments MPV (test code = MPV) 8.1 7.4-10.4 [facility] LancasterEgmungkWGALXMNXRG4058-57-43 18:46:00 Test Item Value Reference Range Interpretation Comments Platelet (test code = Platelet) 301 133-450 [facility]KyoceojHVBJFFHXAN9655-27-32 18:46:00 Test Item Value Reference Range Interpretation Comments RDW (test code = RDW) 14.5 11.5-14.5 [facility] HospitalAugwsujPFISOJIEJI7387-75-48 18:46:00 Test Item Value Reference Range Interpretation Comments RBC (test code = RBC) 4.84 4.70-6.10 [facility] HospitalRaoxigpTFPJDJIFMD7991-41-96 18:46:00 Test Item Value Reference Range Interpretation Comments Hgb (test code = Hgb) 14.4 14.0-18.0 [facility] HospitalIhfsfraPYTOSEXQQM3518-65-24 18:46:00 Test Item Value Reference Range Interpretation Comments WBC (test code = WBC) 5.2 3.7-10.4 [facility] HospitalPpjuqmqPTXYRTSNBN0876-87-28 18:46:00 Test Item Value Reference Range Interpretation Comments MCH (test code = MCH) 29.8 pg 27.0-31.0 [facility] LancasterNsuoozfSHCZXIMYZM8582-31-91 18:46:00 Test Item Value Reference Range Interpretation Comments MCV (test code = MCV) 92.0 80.0-94.0 [facility] LancasterWgxglvxCJIXRGFGEY5641-78-28 18:46:00 Test Item Value Reference Range Interpretation Comments Hct (test code = Hct) 44.5 42.0-54.0 [facility] LancasterMclybphIUULJNUPXX3656-16-74 18:46:00 Test Item Value Reference Range Interpretation Comments MCHC (test code = MCHC) 32.4 32.0-36.0 [facility] LancasterIzdggomMVYZMUTLWZ2126-65-92 18:46:00 Test Item Value Reference Range Interpretation Comments [place]-Hep C Ab (test Negative *NA*(07/22/14 code = [place]-Hep C 1:46 PM) Ab) [facility] AND [id number] 18:46:00 Test Item Value Reference Range Interpretation Comments UA Urobilinogen (test code = UA <=1.0 mg/dL 0.1-1.0 Urobilinogen) [facility] AND [id number] 18:46:00 Test Item Value Reference Range Interpretation Comments UA Sq Epi (test code = UA Sq Epi) None Seen [facility] AND [id number] 18:46:00 Test Item Value Reference Range Interpretation Comments UA Leuk Est (test Negative (07/22/14 1:46 code = UA Leuk Est) PM) [facility] AND [id number] 18:46:00 Test Item Value Reference Range Interpretation Comments UA Nitrite (test code Negative (07/22/14 1:46 = UA Nitrite) PM) [facility] AND [id number] 18:46:00 Test Item Value Reference Range Interpretation Comments UA Blood (test code = Negative (07/22/14 1:46 UA Blood) PM) [facility] AND [id number] 18:46:00 Test Item Value Reference Range Interpretation Comments UA Ketones (test code = UA Negative mg/dL Ketones) [facility] AND [id number] 18:46:00 Test Item Value Reference Range Interpretation Comments UA Bili (test code = Negative *NA*(07/22/14 UA Bili) 1:46 PM) [facility] AND [id number] 18:46:00 Test Item Value Reference Range Interpretation Comments UA Bacteria (test code = UA Occasional /HPF Bacteria) [facility] AND [id number] 18:46:00 Test Item Value Reference Range Interpretation Comments UA RBC (test code = no gt See_Comment [Automa elizabeth message] The UA RBC) system which ge nerated this result transmit elizabeth reference range : <=2. The reference range was not used to interpr et this result as lukas l/abnormal. [facility] AND [id number] 18:46:00 Test Item Value Reference Range Interpretation Comments UA WBC (test code = 1 See_Comment [Automa elizabeth message] The UA WBC) system which ge nerated this result transmit elizabeth reference range : <=5. The reference range was not used to interpr et this result as lukas l/abnormal. [facility] AND [id number] 18:46:00 Test Item Value Reference Range Interpretation Comments UA Glucose (test code = UA Glucose) 30 mg/dL [facility] AND [id number] 18:46:00 Test Item Value Reference Range Interpretation Comments UA Protein (test code = UA Negative mg/dL Protein) [facility] AND [id number] 18:46:00 Test Item Value Reference Range Interpretation Comments UA pH (test code = UA pH) 6.5 5.0-8.0 [facility] AND [id number] 18:46:00 Test Item Value Reference Range Interpretation Comments UA Turbidity (test code = Clear (07/22/14 1:46 UA Turbidity) PM) [facility] AND [id number] 18:46:00 Test Item Value Reference Range Interpretation Comments UA Spec Grav (test code = UA Spec Grav) 1.010 [facility] AND [id number] 18:46:00 Test Item Value Reference Range Interpretation Comments UA Color (test code = Light Yellow UA Color) *NA*(07/22/14 1:46 PM) [facility] [id number] 18:46:00 Test Item Value Reference Range Interpretation Comments Magnesium Lvl (test code = Magnesium 1.8 1.8-2.4 Lvl) [facility]IctslatASNZUMDXATNE8217-59-61 18:46:00 Test Item Value Reference Range Interpretation Comments AGAP (test code = AGAP) 13.2 10.0-20.0 [facility] MichiganZdzeopbYPKBDDMJITOJ4828-74-06 18:46:00 Test Item Value Reference Range Interpretation Comments B/C Ratio (test code = B/C Ratio) 18 6-25 [facility] MichiganJjoysrlDNCGPPQNWETD3432-51-04 18:46:00 Test Item Value Reference Range Interpretation Comments A/G Ratio (test code = A/G Ratio) 1.1 0.7-1.6 [facility] MichiganJysevhzPUWUQEFAFLDW5005-42-79 18:46:00 Test Item Value Reference Range Interpretation Comments Globulin (test code = Globulin) 3.3 2.0-4.0 [facility] MichiganPuzfrxpVPGGLEMLMBPY1333-36-30 18:46:00 Test Item Value Reference Range Interpretation Comments eGFR (test code = eGFR) 99 [facility] MichiganUfcqpgsWNNHQQFBIUIF0654-47-95 18:46:00 Test Item Value Reference Range Interpretation Comments Calcium Lvl (test code = Calcium Lvl) 9.0 8.5-10.5 [facility] MichiganGnvgvwoAZPKXCYTRMOG7900-77-53 18:46:00 Test Item Value Reference Range Interpretation Comments Chloride Lvl (test code = Chloride Lvl) 106 95-109 [facility] MichiganPlelwdyZXSHFAJLPIHT2805-09-52 18:46:00 Test Item Value Reference Range Interpretation Comments Creatinine Lvl (test code = Creatinine 0.9 0.5-1.4 Lvl) [facility] MichiganHtqrsfmNTAQYBEJHDIT7559-58-36 18:46:00 Test Item Value Reference Range Interpretation Comments Potassium Lvl (test code = Potassium 4.2 3.5-5.1 Lvl) [facility] MichiganJpoiwiwVIYDMFQIJYGV2112-90-45 18:46:00 Test Item Value Reference Range Interpretation Comments Sodium Lvl (test code = Sodium Lvl) 139 135-145 [facility] MichiganWwqyiluPEZFJEHHREGG9732-50-75 18:46:00 Test Item Value Reference Range Interpretation Comments CO2 (test code = CO2) 24 24-32 [facility] MichiganUvypdleGPDZBBMUGOKB8522-99-86 18:46:00 Test Item Value Reference Range Interpretation Comments BUN (test code = BUN) 16 7-22 [facility] MichiganJfevmncYURKCLVWSHAG8593-05-26 18:46:00 Test Item Value Reference Range Interpretation Comments Glucose Lvl (test code = Glucose Lvl) 141 70-99 [facility]ApjyxxqBHMAHZJSDIDV7731-66-90 18:46:00 Test Item Value Reference Range Interpretation Comments Albumin Lvl (test code = Albumin Lvl) 3.6 3.5-5.0 [facility] MichiganAybzbdeKKRTWTHSWXKA5879-87-68 18:46:00 Test Item Value Reference Range Interpretation Comments Alk Phos (test code = Alk Phos) 65 39-136 [facility] MichiganOhdsbkvSTJSZKBAMSON4355-92-61 18:46:00 Test Item Value Reference Range Interpretation Comments Bili Total (test code = Bili Total) 0.3 0.2-1.3 [facility] MichiganFqajstuQLXFSLELILFW4906-17-17 18:46:00 Test Item Value Reference Range Interpretation Comments ALT (test code = ALT) 100 See_Comment [Auto mated message] The system which ge nerated this result transmit elizabeth reference range : <=65. The reference range was not used to interpr et this result as lukas l/abnormal. [facility] MichiganEpgjhnaVVTKAHKSPUGT3012-08-39 18:46:00 Test Item Value Reference Range Interpretation Comments AST (test code = AST) 53 See_Comment [Auto mated message] The system which ge nerated this result transmit elizabeth reference range : <=37. The reference range was not used to interpr et this result as lukas l/abnormal. [facility] MichiganXjlicuhKCLLTWCSCYHA4927-33-92 18:46:00 Test Item Value Reference Range Interpretation Comments Total Protein (test code = Total 6.9 6.4-8.4 Protein) [facility] HospitalZyredkpGGSBSANXCT4581-01-35 18:46:00 Test Item Value Reference Range Interpretation Comments Eosinophils (test code = 4.2 See_Comment [A utomated message] The Eosinophils) system which ge nerated this result tra nsmitted reference range : <=4.0. The reference r mitra was not used to int erpret this result as normal/abnormal . [facility] HospitalYabwqmtVSXOJAMAZZ3414-20-86 18:46:00 Test Item Value Reference Range Interpretation Comments Segs (test code = Segs) 56.4 45.0-75.0 [facility] HospitalQecvveyORLVXDSSES9918-47-88 18:46:00 Test Item Value Reference Range Interpretation Comments Monocytes (test code = Monocytes) 10.3 2.0-12.0 [facility] HospitalQgnxfniZLJOCXEFUO6408-46-25 18:46:00 Test Item Value Reference Range Interpretation Comments Lymphocytes (test code = Lymphocytes) 28.0 20.0-40.0 [facility] HospitalNzwznbgDYPNMYCYCE5890-54-03 18:46:00 Test Item Value Reference Range Interpretation Comments Monocytes # (test code 0.5 See_Comment [Aut omated message] The = Monocytes #) system which generated this result tra nsmitted reference range : <=0.8. The reference r mitra was not used to int erpret this result as normal/abnormal . [facility] HospitalUkghrxlINQMSIJYWP2227-37-92 18:46:00 Test Item Value Reference Range Interpretation Comments Basophils (test code = 1.1 See_Comment [Aut omated message] The Basophils) system which ge nerated this result tra nsmitted reference range : <=1.0. The reference r mitra was not used to int erpret this result as normal/abnormal . [facility] HospitalBdljjlbZOULNQTAYK7379-10-51 18:46:00 Test Item Value Reference Range Interpretation Comments Lymphocytes # (test code = Lymphocytes 1.5 1.0-5.5 #) [facility] HospitalGeadmyiIARGEMHBMD7576-45-59 18:46:00 Test Item Value Reference Range Interpretation Comments Segs-Bands # (test code = Segs-Bands #) 2.9 1.5-8.1 [facility] HospitalGdonrxzBMEABHKLED3920-04-15 18:46:00 Test Item Value Reference Range Interpretation Comments Eosinophils # (test code 0.2 See_Comment [A utomated message] The = Eosinophils #) system whic h generated this result tra nsmitted reference range : <=0.5. The reference r mitra was not used to int erpret this result as normal/abnormal . [facility] HospitalXitwgunAAXVFPFHBI6573-80-46 18:46:00 Test Item Value Reference Range Interpretation Comments Basophils # (test code 0.1 See_Comment [Aut omated message] The = Basophils #) system which generated this result tra nsmitted reference range : <=0.2. The reference r mitra was not used to int erpret this result as normal/abnormal . [facility] HospitalBfymkjwHHWCSPAMIK1284-38-96 18:46:00 Test Item Value Reference Range Interpretation Comments PT (test code = PT) 11.2 s 12.0-14.7 [facility] HospitalYjuueuwHQTXRPNELB5267-43-54 18:46:00 Test Item Value Reference Range Interpretation Comments INR (test code = INR) 0.82 0.85-1.17 [facility] HospitalPqiiajtCVQNWZADTH4348-57-75 18:46:00 Test Item Value Reference Range Interpretation Comments PTT (test code = PTT) 28.6 s 22.9-35.8 [facility] HospitalVdcqsmyEBWDJWUCOH8114-39-67 18:46:00 Test Item Value Reference Range Interpretation Comments MPV (test code = MPV) 8.1 7.4-10.4 [facility] HospitalPyuftlfIWOMBLYTEZ0346-50-46 18:46:00 Test Item Value Reference Range Interpretation Comments Platelet (test code = Platelet) 301 133-450 [facility] HospitalNayvlrxAIYXAFZQBK5054-40-94 18:46:00 Test Item Value Reference Range Interpretation Comments RDW (test code = RDW) 14.5 11.5-14.5 [facility] HospitalXfirkaaBXHYNRXWPL3654-62-28 18:46:00 Test Item Value Reference Range Interpretation Comments RBC (test code = RBC) 4.84 4.70-6.10 [facility] LancasterElyoeouSBYGTZZXCF0970-98-22 18:46:00 Test Item Value Reference Range Interpretation Comments Hgb (test code = Hgb) 14.4 14.0-18.0 [facility] RdqhgciVYKQQOSBSA9023-04-09 18:46:00 Test Item Value Reference Range Interpretation Comments WBC (test code = WBC) 5.2 3.7-10.4 [facility] GplfiafKCWZOWOAZC7285-96-22 18:46:00 Test Item Value Reference Range Interpretation Comments MCH (test code = MCH) 29.8 pg 27.0-31.0 [facility] ZdpnnlvVNFJTBHAWX2327-13-58 18:46:00 Test Item Value Reference Range Interpretation Comments MCV (test code = MCV) 92.0 80.0-94.0 [facility] LancasterSljfcnbFCFGJAPXYC0863-84-94 18:46:00 Test Item Value Reference Range Interpretation Comments Hct (test code = Hct) 44.5 42.0-54.0 [facility] LancasterXgghgzfRQTJMOGVKR0804-77-14 18:46:00 Test Item Value Reference Range Interpretation Comments MCHC (test code = MCHC) 32.4 32.0-36.0 [facility] LancasterSuhuwisSWUKJIFFJL4132-16-49 18:46:00 Test Item Value Reference Range Interpretation Comments [place]-Hep C Ab (test Negative *NA*(07/22/14 code = [place]-Hep C 1:46 PM) Ab) [facility] AND [id number] 18:46:00 Test Item Value Reference Range Interpretation Comments UA Urobilinogen (test code = UA <=1.0 mg/dL 0.1-1.0 Urobilinogen) [facility] AND [id number] 18:46:00 Test Item Value Reference Range Interpretation Comments UA Sq Epi (test code = UA Sq Epi) None [facility] [id number] 18:46:00 Test Item Value Reference Range Interpretation Comments UA Leuk Est (test Negative (07/22/14 1:46 code = UA Leuk Est) PM) [facility] AND [id number] 18:46:00 Test Item Value Reference Range Interpretation Comments UA Nitrite (test code Negative (07/22/14 1:46 = UA Nitrite) PM) [facility] AND [id number] 18:46:00 Test Item Value Reference Range Interpretation Comments UA Blood (test code = Negative (07/22/14 1:46 UA Blood) PM) [facility] AND [id number] 18:46:00 Test Item Value Reference Range Interpretation Comments UA Ketones (test code = UA Negative mg/dL Ketones) [facility] AND [id number] 18:46:00 Test Item Value Reference Range Interpretation Comments UA Bili (test code = Negative *NA*(07/22/14 UA Bili) 1:46 PM) [facility] AND [id number] 18:46:00 Test Item Value Reference Range Interpretation Comments UA Bacteria (test code = UA Occasional /HPF Bacteria) [facility] AND [id number] 18:46:00 Test Item Value Reference Range Interpretation Comments UA RBC (test code = no gt See_Comment [Automa elizabeth message] The UA RBC) system which ge nerated this result transmit elizabeth reference range : <=2. The reference range was not used to interpr et this result as lukas l/abnormal. [facility] AND [id number] 18:46:00 Test Item Value Reference Range Interpretation Comments UA WBC (test code = 1 See_Comment [Automa elizabeth message] The UA WBC) system which ge nerated this result transmit elizabeth reference range : <=5. The reference range was not used to interpr et this result as lukas l/abnormal. [facility] AND [id number] 18:46:00 Test Item Value Reference Range Interpretation Comments UA Glucose (test code = UA Glucose) 30 mg/dL [facility] AND [id number] 18:46:00 Test Item Value Reference Range Interpretation Comments UA Protein (test code = UA Negative mg/dL Protein) [facility] AND [id number] 18:46:00 Test Item Value Reference Range Interpretation Comments UA pH (test code = UA pH) 6.5 5.0-8.0 [facility] AND [id number] 18:46:00 Test Item Value Reference Range Interpretation Comments UA Turbidity (test code = Clear (07/22/14 1:46 UA Turbidity) PM) [facility] AND [id number] 18:46:00 Test Item Value Reference Range Interpretation Comments UA Spec Grav (test code = UA Spec Grav) 1.010 [facility] [id number] 18:46:00 Test Item Value Reference Range Interpretation Comments UA Color (test code = Light Yellow UA Color) *NA*(07/22/14 1:46 PM) [facility]annCHEM [id number] 18:46:00 Test Item Value Reference Range Interpretation Comments Magnesium Lvl (test code = Magnesium 1.8 1.8-2.4 Lvl) [facility]GhurbxgVQDMENRNMGIO3730-03-04 18:46:00 Test Item Value Reference Range Interpretation Comments AGAP (test code = AGAP) 13.2 10.0-20.0 [facility] MichiganSrcnjiwZCHTEKONFBFT8340-30-54 18:46:00 Test Item Value Reference Range Interpretation Comments B/C Ratio (test code = B/C Ratio) 18 6-25 [facility] MichiganDsgblsqPVSKSETVDWWQ3879-60-13 18:46:00 Test Item Value Reference Range Interpretation Comments A/G Ratio (test code = A/G Ratio) 1.1 0.7-1.6 [facility] MichiganUpuujzqVYSGGNJWLMRQ4649-52-11 18:46:00 Test Item Value Reference Range Interpretation Comments Globulin (test code = Globulin) 3.3 2.0-4.0 [facility] MichiganBwcxzyzRDFPTZWKCMNN0512-19-80 18:46:00 Test Item Value Reference Range Interpretation Comments eGFR (test code = eGFR) 99 [facility] MichiganMzcenoiGBOGQJZWUTVR0092-29-71 18:46:00 Test Item Value Reference Range Interpretation Comments Calcium Lvl (test code = Calcium Lvl) 9.0 8.5-10.5 [facility] MichiganVouxkybAISOYBMCULMK0682-66-73 18:46:00 Test Item Value Reference Range Interpretation Comments Chloride Lvl (test code = Chloride Lvl) 106 95-109 [facility] MichiganAfjuspdRSLVPAIEHYFO5100-61-65 18:46:00 Test Item Value Reference Range Interpretation Comments Creatinine Lvl (test code = Creatinine 0.9 0.5-1.4 Lvl) [facility]HfcxwxqMXSIDIBYZCQD0611-35-82 18:46:00 Test Item Value Reference Range Interpretation Comments Potassium Lvl (test code = Potassium 4.2 3.5-5.1 Lvl) [facility] MichiganUdovcmpQSOTRXWYUAOR6623-69-80 18:46:00 Test Item Value Reference Range Interpretation Comments Sodium Lvl (test code = Sodium Lvl) 139 135-145 [facility] MichiganWmpbmptSYZZCQBRAQMQ7860-49-39 18:46:00 Test Item Value Reference Range Interpretation Comments CO2 (test code = CO2) 24 24-32 [facility] MichiganJwqbdyrEUNKPAKJOONY8308-61-50 18:46:00 Test Item Value Reference Range Interpretation Comments BUN (test code = BUN) 16 7-22 [facility] MichiganLytecwyVCLCRNIIENHZ3731-59-06 18:46:00 Test Item Value Reference Range Interpretation Comments Glucose Lvl (test code = Glucose Lvl) 141 70-99 [facility] MichiganRskmrewMMVRZCNCWCZC3170-65-04 18:46:00 Test Item Value Reference Range Interpretation Comments Albumin Lvl (test code = Albumin Lvl) 3.6 3.5-5.0 [facility] MichiganMvjbxzkTIOKECHSLHHL9040-53-42 18:46:00 Test Item Value Reference Range Interpretation Comments Alk Phos (test code = Alk Phos) 65 39-136 [facility] MichiganFxvgwwdBPEPYTDZJHWO5685-67-08 18:46:00 Test Item Value Reference Range Interpretation Comments Bili Total (test code = Bili Total) 0.3 0.2-1.3 [facility] MichiganWcaljvnBWWZODTSRNZA6186-03-67 18:46:00 Test Item Value Reference Range Interpretation Comments ALT (test code = ALT) 100 See_Comment [Auto mated message] The system which ge nerated this result transmit elizabeth reference range : <=65. The reference range was not used to interpr et this result as lukas l/abnormal. [facility] MichiganIclnnzmUGYBPIGZFRJS7753-71-02 18:46:00 Test Item Value Reference Range Interpretation Comments AST (test code = AST) 53 See_Comment [Auto mated message] The system which ge nerated this result transmit elizabeth reference range : <=37. The reference range was not used to interpr et this result as lukas l/abnormal. [facility] MichiganCsesykcFOQSNQRPUGID7834-94-99 18:46:00 Test Item Value Reference Range Interpretation Comments Total Protein (test code = Total 6.9 6.4-8.4 Protein) [facility] LancasterAkeobbyYUPQZHJRAM0150-58-24 18:46:00 Test Item Value Reference Range Interpretation Comments Eosinophils (test code = 4.2 See_Comment [A utomated message] The Eosinophils) system which ge nerated this result tra nsmitted reference range : <=4.0. The reference r mitra was not used to int erpret this result as normal/abnormal . [facility] HospitalOqltivnRKHSTDTASZ5254-69-59 18:46:00 Test Item Value Reference Range Interpretation Comments Segs (test code = Segs) 56.4 45.0-75.0 [facility] HospitalHogfbckUFQRKVYRKD1458-47-15 18:46:00 Test Item Value Reference Range Interpretation Comments Monocytes (test code = Monocytes) 10.3 2.0-12.0 [facility] HospitalHlddbhnZMQAJYNRXJ8448-72-33 18:46:00 Test Item Value Reference Range Interpretation Comments Lymphocytes (test code = Lymphocytes) 28.0 20.0-40.0 [facility] HospitalWbiqesdLMQSXAOGMB1988-06-97 18:46:00 Test Item Value Reference Range Interpretation Comments Monocytes # (test code 0.5 See_Comment [Aut omated message] The = Monocytes #) system which generated this result tra nsmitted reference range : <=0.8. The reference r mitra was not used to int erpret this result as normal/abnormal . [facility] HospitalIjblhubSIWAUSOQHA9276-71-21 18:46:00 Test Item Value Reference Range Interpretation Comments Basophils (test code = 1.1 See_Comment [Aut omated message] The Basophils) system which ge nerated this result tra nsmitted reference range : <=1.0. The reference r mitra was not used to int erpret this result as normal/abnormal . [facility] HospitalGcphnucMLYBIUFOCE4543-06-50 18:46:00 Test Item Value Reference Range Interpretation Comments Lymphocytes # (test code = Lymphocytes 1.5 1.0-5.5 #) [facility] HospitalJywfbyhCMAFJOXGFP4252-88-95 18:46:00 Test Item Value Reference Range Interpretation Comments Segs-Bands # (test code = Segs-Bands #) 2.9 1.5-8.1 [facility] HospitalUtfpzwdEEBNDQXEDJ6549-14-76 18:46:00 Test Item Value Reference Range Interpretation Comments Eosinophils # (test code 0.2 See_Comment [A utomated message] The = Eosinophils #) system whic h generated this result tra nsmitted reference range : <=0.5. The reference r mitra was not used to int erpret this result as normal/abnormal . [facility] HospitalVdnnbufWVXRKQOUOZ3590-76-23 18:46:00 Test Item Value Reference Range Interpretation Comments Basophils # (test code 0.1 See_Comment [Aut omated message] The = Basophils #) system which generated this result tra nsmitted reference range : <=0.2. The reference r mitra was not used to int erpret this result as normal/abnormal . [facility] HospitalRgfpbtaTXZCTTWZGG3178-34-59 18:46:00 Test Item Value Reference Range Interpretation Comments PT (test code = PT) 11.2 s 12.0-14.7 [facility] HospitalRfwnkxdCNLFLHBJLP8193-92-98 18:46:00 Test Item Value Reference Range Interpretation Comments INR (test code = INR) 0.82 0.85-1.17 [facility] HospitalNfgsfbdYLFUSHZSSZ9667-03-16 18:46:00 Test Item Value Reference Range Interpretation Comments PTT (test code = PTT) 28.6 s 22.9-35.8 [facility] HospitalSpmseodYRYZMJOQOM3289-70-04 18:46:00 Test Item Value Reference Range Interpretation Comments MPV (test code = MPV) 8.1 7.4-10.4 [facility] HospitalMvepatiQFXJKYHJKL1778-86-05 18:46:00 Test Item Value Reference Range Interpretation Comments Platelet (test code = Platelet) 301 133-450 [id number] 18:46:00 Test Item Value Reference Range Interpretation Comments RDW (test code = RDW) 14.5 11.5-14.5 [facility] HospitalGadfdguSVBCOVGKWV5646-09-67 18:46:00 Test Item Value Reference Range Interpretation Comments RBC (test code = RBC) 4.84 4.70-6.10 [facility] HospitalGacnclpGCQBYEIBYK8934-62-54 18:46:00 Test Item Value Reference Range Interpretation Comments Hgb (test code = Hgb) 14.4 14.0-18.0 [facility] HospitalDvrujiuEJNSJDNDMU5292-29-77 18:46:00 Test Item Value Reference Range Interpretation Comments WBC (test code = WBC) 5.2 3.7-10.4 [facility] HospitalPravsseBXMGREBJFR7270-41-04 18:46:00 Test Item Value Reference Range Interpretation Comments MCH (test code = MCH) 29.8 pg 27.0-31.0 [facility] HospitalUccwntiLEWJEQNZLY3160-33-48 18:46:00 Test Item Value Reference Range Interpretation Comments MCV (test code = MCV) 92.0 80.0-94.0 [facility]FghbwudAJYWGCXZMA9351-91-44 18:46:00 Test Item Value Reference Range Interpretation Comments Hct (test code = Hct) 44.5 42.0-54.0 [facility]jmQJWLOICCOV1532-45-66 18:46:00 Test Item Value Reference Range Interpretation Comments MCHC (test code = MCHC) 32.4 32.0-36.0 [facility] LancasterLtcmmakPTZHRTWOSH5624-24-48 18:46:00 Test Item Value Reference Range Interpretation Comments [place]-Hep C Ab (test Negative *NA*(07/22/14 code = [place]-Hep C 1:46 PM) Ab) [facility] AND [id number] 18:46:00 Test Item Value Reference Range Interpretation Comments UA Urobilinogen (test code = UA <=1.0 mg/dL 0.1-1.0 Urobilinogen) [facility] AND [id number] 18:46:00 Test Item Value Reference Range Interpretation Comments UA Sq Epi (test code = UA Sq Epi) None Seen [facility] AND [id number] 18:46:00 Test Item Value Reference Range Interpretation Comments UA Leuk Est (test Negative (07/22/14 1:46 code = UA Leuk Est) PM) [facility] AND [id number] 18:46:00 Test Item Value Reference Range Interpretation Comments UA Nitrite (test code Negative (07/22/14 1:46 = UA Nitrite) PM) [facility] AND [id number] 18:46:00 Test Item Value Reference Range Interpretation Comments UA Blood (test code = Negative (07/22/14 1:46 UA Blood) PM) [facility] [id number] 18:46:00 Test Item Value Reference Range Interpretation Comments UA Ketones (test code = UA Negative mg/dL Ketones) [facility] AND [id number] 18:46:00 Test Item Value Reference Range Interpretation Comments UA Bili (test code = Negative *NA*(07/22/14 UA Bili) 1:46 PM) [facility] [id number] 18:46:00 Test Item Value Reference Range Interpretation Comments UA Bacteria (test code = UA Occasional /HPF Bacteria) [facility] AND [id number] 18:46:00 Test Item Value Reference Range Interpretation Comments UA RBC (test code = no gt See_Comment [Automa elizabeth message] The UA RBC) system which ge nerated this result transmit elizabeth reference range : <=2. The reference range was not used to interpr et this result as lukas l/abnormal. [facility] AND [id number] 18:46:00 Test Item Value Reference Range Interpretation Comments UA WBC (test code = 1 See_Comment [Automa elizabeth message] The UA WBC) system which ge nerated this result transmit elizabeth reference range : <=5. The reference range was not used to interpr et this result as lukas l/abnormal. [facility] AND [id number] 18:46:00 Test Item Value Reference Range Interpretation Comments UA Glucose (test code = UA Glucose) 30 mg/dL [facility] AND [id number] 18:46:00 Test Item Value Reference Range Interpretation Comments UA Protein (test code = UA Negative mg/dL Protein) [facility] AND [id number] 18:46:00 Test Item Value Reference Range Interpretation Comments UA pH (test code = UA pH) 6.5 5.0-8.0 [facility] AND [id number] 18:46:00 Test Item Value Reference Range Interpretation Comments UA Turbidity (test code = Clear (07/22/14 1:46 UA Turbidity) PM) [facility] AND [id number] 18:46:00 Test Item Value Reference Range Interpretation Comments UA Spec Grav (test code = UA Spec Grav) 1.010 [facility] AND [id number] 18:46:00 Test Item Value Reference Range Interpretation Comments UA Color (test code = Light Yellow UA Color) *NA*(07/22/14 1:46 PM) [facility] [id number] 18:46:00 Test Item Value Reference Range Interpretation Comments Magnesium Lvl (test code = Magnesium 1.8 1.8-2.4 Lvl) [facility] CenterPzcqtfyMOHRYEXDJHZP1456-21-66 18:46:00 Test Item Value Reference Range Interpretation Comments AGAP (test code = AGAP) 13.2 10.0-20.0 [facility]SjkdkllGIKDEIHABOJU7445-76-55 18:46:00 Test Item Value Reference Range Interpretation Comments B/C Ratio (test code = B/C Ratio) 18 6-25 [facility] MichiganJgryvryHDWHPFNKWNHW3997-74-08 18:46:00 Test Item Value Reference Range Interpretation Comments A/G Ratio (test code = A/G Ratio) 1.1 0.7-1.6 [facility] MichiganAiyyhshUGDMWHTQGHDE8030-93-32 18:46:00 Test Item Value Reference Range Interpretation Comments Globulin (test code = Globulin) 3.3 2.0-4.0 [facility] MichiganLvxoymzNCJNOTWHBKHT7350-12-63 18:46:00 Test Item Value Reference Range Interpretation Comments eGFR (test code = eGFR) 99 [facility] MichiganGwrvqkyDUEYCGURGXLJ4056-57-54 18:46:00 Test Item Value Reference Range Interpretation Comments Calcium Lvl (test code = Calcium Lvl) 9.0 8.5-10.5 [facility] MichiganGopjlccQDLFKMGGRQGO1690-28-59 18:46:00 Test Item Value Reference Range Interpretation Comments Chloride Lvl (test code = Chloride Lvl) 106 95-109 [facility] MichiganZhmteveOVMCMCROEAFC3665-88-49 18:46:00 Test Item Value Reference Range Interpretation Comments Creatinine Lvl (test code = Creatinine 0.9 0.5-1.4 Lvl) [facility]KtqglwpYKMPPBFCYIPA3956-78-52 18:46:00 Test Item Value Reference Range Interpretation Comments Potassium Lvl (test code = Potassium 4.2 3.5-5.1 Lvl) [facility] MichiganGyckdzqPRTDJCRKRYBS5660-81-33 18:46:00 Test Item Value Reference Range Interpretation Comments Sodium Lvl (test code = Sodium Lvl) 139 135-145 [facility] MichiganUjtwjtkDQYWHUYISHGH1740-91-14 18:46:00 Test Item Value Reference Range Interpretation Comments CO2 (test code = CO2) 24 24-32 [facility] MichiganQosxjekSISKPYEUKIHA4632-33-13 18:46:00 Test Item Value Reference Range Interpretation Comments BUN (test code = BUN) 16 7-22 [facility] MichiganBdxmlgzCAWOXCFDVMUV3904-45-43 18:46:00 Test Item Value Reference Range Interpretation Comments Glucose Lvl (test code = Glucose Lvl) 141 70-99 [facility] MichiganFybwswoNHLTKPSNBTNW6283-26-64 18:46:00 Test Item Value Reference Range Interpretation Comments Albumin Lvl (test code = Albumin Lvl) 3.6 3.5-5.0 [facility] MichiganNmcvtrhVFCPJVDJEHHB5731-89-23 18:46:00 Test Item Value Reference Range Interpretation Comments Alk Phos (test code = Alk Phos) 65 39-136 [facility] MichiganJhofbczVROOZJRVKTCT4423-95-80 18:46:00 Test Item Value Reference Range Interpretation Comments Bili Total (test code = Bili Total) 0.3 0.2-1.3 [facility] MichiganTdgprkrPFOPLPMJFBRD2328-91-89 18:46:00 Test Item Value Reference Range Interpretation Comments ALT (test code = ALT) 100 See_Comment [Auto mated message] The system which ge nerated this result transmit elizabeth reference range : <=65. The reference range was not used to interpr et this result as lukas l/abnormal. [facility] MichiganFozyvejNQMQPXXXUMEA4770-41-10 18:46:00 Test Item Value Reference Range Interpretation Comments AST (test code = AST) 53 See_Comment [Auto mated message] The system which ge nerated this result transmit elizabeth reference range : <=37. The reference range was not used to interpr et this result as lukas l/abnormal. [facility] MichiganJxkcymzGNCFDMUFRHVU4902-24-44 18:46:00 Test Item Value Reference Range Interpretation Comments Total Protein (test code = Total 6.9 6.4-8.4 Protein) [facility] HospitalFazghptKDHWMVEZGM8429-87-63 18:46:00 Test Item Value Reference Range Interpretation Comments Eosinophils (test code = 4.2 See_Comment [A utomated message] The Eosinophils) system which ge nerated this result tra nsmitted reference range : <=4.0. The reference r mitra was not used to int erpret this result as normal/abnormal . [facility] HospitalNlycyqkCATPBNPUXS5813-67-21 18:46:00 Test Item Value Reference Range Interpretation Comments Segs (test code = Segs) 56.4 45.0-75.0 [facility] HospitalQneaxuwNWNAXEYBYY5693-77-26 18:46:00 Test Item Value Reference Range Interpretation Comments Monocytes (test code = Monocytes) 10.3 2.0-12.0 [facility] HospitalDcmshsgGLLQXGIWNU3743-83-21 18:46:00 Test Item Value Reference Range Interpretation Comments Lymphocytes (test code = Lymphocytes) 28.0 20.0-40.0 [facility] HospitalIspilibZMXKCCEUAS5372-15-68 18:46:00 Test Item Value Reference Range Interpretation Comments Monocytes # (test code 0.5 See_Comment [Aut omated message] The = Monocytes #) system which generated this result tra nsmitted reference range : <=0.8. The reference r mitra was not used to int erpret this result as normal/abnormal . [facility] HospitalGfctdhbAVUUOBMNVJ6092-63-75 18:46:00 Test Item Value Reference Range Interpretation Comments Basophils (test code = 1.1 See_Comment [Aut omated message] The Basophils) system which ge nerated this result tra nsmitted reference range : <=1.0. The reference r mitra was not used to int erpret this result as normal/abnormal . [facility] HospitalWjypavxVZUOHZPVBL2852-69-33 18:46:00 Test Item Value Reference Range Interpretation Comments Lymphocytes # (test code = Lymphocytes 1.5 1.0-5.5 #) [facility] HospitalPhzowahFXKLHHNXVR9258-75-40 18:46:00 Test Item Value Reference Range Interpretation Comments Segs-Bands # (test code = Segs-Bands #) 2.9 1.5-8.1 [facility] HospitalOxvueeeLRYLOQVUZV0297-41-76 18:46:00 Test Item Value Reference Range Interpretation Comments Eosinophils # (test code 0.2 See_Comment [A utomated message] The = Eosinophils #) system whic h generated this result tra nsmitted reference range : <=0.5. The reference r mitra was not used to int erpret this result as normal/abnormal . [facility] HospitalFegbxwiXHSWNVKHLR5637-52-16 18:46:00 Test Item Value Reference Range Interpretation Comments Basophils # (test code 0.1 See_Comment [Aut omated message] The = Basophils #) system which generated this result tra nsmitted reference range : <=0.2. The reference r mitra was not used to int erpret this result as normal/abnormal . [facility] HospitalKtvjncoLELGEDFLKW1843-67-96 18:46:00 Test Item Value Reference Range Interpretation Comments PT (test code = PT) 11.2 s 12.0-14.7 [facility] HospitalUekuekwRWPCDMYMTC8183-85-04 18:46:00 Test Item Value Reference Range Interpretation Comments INR (test code = INR) 0.82 0.85-1.17 [facility] HospitalYukqggvWHFWEGGBEN2260-00-17 18:46:00 Test Item Value Reference Range Interpretation Comments PTT (test code = PTT) 28.6 s 22.9-35.8 [facility] HospitalSqdlyucDLTIHZCWHM6163-11-89 18:46:00 Test Item Value Reference Range Interpretation Comments MPV (test code = MPV) 8.1 7.4-10.4 [facility] HospitalAuwwctfQBCGYUSZUR6116-05-65 18:46:00 Test Item Value Reference Range Interpretation Comments Platelet (test code = Platelet) 301 133-450 [facility] HospitalMuhxphcFDZMRNQQSC0725-38-50 18:46:00 Test Item Value Reference Range Interpretation Comments RDW (test code = RDW) 14.5 11.5-14.5 [facility] HospitalAhaoelzWLUGMNTFEC1372-41-51 18:46:00 Test Item Value Reference Range Interpretation Comments RBC (test code = RBC) 4.84 4.70-6.10 [facility] HospitalUnagyaeHOIZBRLVSE7678-90-86 18:46:00 Test Item Value Reference Range Interpretation Comments Hgb (test code = Hgb) 14.4 14.0-18.0 [facility] HospitalIinenkjXNJBHSBOMK9815-72-86 18:46:00 Test Item Value Reference Range Interpretation Comments WBC (test code = WBC) 5.2 3.7-10.4 [facility] HospitalUjuqasvJYZOOUQTJB7656-06-36 18:46:00 Test Item Value Reference Range Interpretation Comments MCH (test code = MCH) 29.8 pg 27.0-31.0 [facility] HospitalZmwkqfoSVPSJPCVCH0904-31-42 18:46:00 Test Item Value Reference Range Interpretation Comments MCV (test code = MCV) 92.0 80.0-94.0 [facility] HospitalMzppoagCMXKLGXRCS4489-85-25 18:46:00 Test Item Value Reference Range Interpretation Comments Hct (test code = Hct) 44.5 42.0-54.0 [facility] HospitalOfxygzsSFXLDVJGDD8859-37-70 18:46:00 Test Item Value Reference Range Interpretation Comments MCHC (test code = MCHC) 32.4 32.0-36.0 [facility] LancasterSnbuqajWKXKXPDJAH1320-64-16 18:46:00 Test Item Value Reference Range Interpretation Comments [place]-Hep C Ab (test Negative *NA*(07/22/14 code = [place]-Hep C 1:46 PM) Ab) [facility] AND [id number] 18:46:00 Test Item Value Reference Range Interpretation Comments UA Urobilinogen (test code = UA <=1.0 mg/dL 0.1-1.0 Urobilinogen) [facility] AND [id number] 18:46:00 Test Item Value Reference Range Interpretation Comments UA Sq Epi (test code = UA Sq Epi) None Seen [facility] AND [id number] 18:46:00 Test Item Value Reference Range Interpretation Comments UA Leuk Est (test Negative (07/22/14 1:46 code = UA Leuk Est) PM) [facility] AND [id number] 18:46:00 Test Item Value Reference Range Interpretation Comments UA Nitrite (test code Negative (07/22/14 1:46 = UA Nitrite) PM) [facility] AND [id number] 18:46:00 Test Item Value Reference Range Interpretation Comments UA Blood (test code = Negative (07/22/14 1:46 UA Blood) PM) [facility] AND [id number] 18:46:00 Test Item Value Reference Range Interpretation Comments UA Ketones (test code = UA Negative mg/dL Ketones) [facility] AND [id number] 18:46:00 Test Item Value Reference Range Interpretation Comments UA Bili (test code = Negative *NA*(07/22/14 UA Bili) 1:46 PM) [facility] AND [id number] 18:46:00 Test Item Value Reference Range Interpretation Comments UA Bacteria (test code = UA Occasional /HPF Bacteria) [facility] AND [id number] 18:46:00 Test Item Value Reference Range Interpretation Comments UA RBC (test code = no gt See_Comment [Automa elizabeth message] The UA RBC) system which ge nerated this result transmit elizabeth reference range : <=2. The reference range was not used to interpr et this result as lukas l/abnormal. [facility] AND [id number] 18:46:00 Test Item Value Reference Range Interpretation Comments UA WBC (test code = 1 See_Comment [Automa elizabeth message] The UA WBC) system which ge nerated this result transmit elizabeth reference range : <=5. The reference range was not used to interpr et this result as lukas l/abnormal. [facility] AND [id number] 18:46:00 Test Item Value Reference Range Interpretation Comments UA Glucose (test code = UA Glucose) 30 mg/dL [facility] AND [id number] 18:46:00 Test Item Value Reference Range Interpretation Comments UA Protein (test code = UA Negative mg/dL Protein) [facility] AND [id number] 18:46:00 Test Item Value Reference Range Interpretation Comments UA pH (test code = UA pH) 6.5 5.0-8.0 [facility] AND [id number] 18:46:00 Test Item Value Reference Range Interpretation Comments UA Turbidity (test code = Clear (07/22/14 1:46 UA Turbidity) PM) [facility] AND [id number] 18:46:00 Test Item Value Reference Range Interpretation Comments UA Spec Grav (test code = UA Spec Grav) 1.010 [facility] AND [id number] 18:46:00 Test Item Value Reference Range Interpretation Comments UA Color (test code = Light Yellow UA Color) *NA*(07/22/14 1:46 PM) [facility] [id number] 18:46:00 Test Item Value Reference Range Interpretation Comments Magnesium Lvl (test code = Magnesium 1.8 1.8-2.4 Lvl) [facility]CpbpoerIALWKPLEHRNG1864-79-38 18:46:00 Test Item Value Reference Range Interpretation Comments AGAP (test code = AGAP) 13.2 10.0-20.0 [facility] MichiganBnxenofMEVPSAEWPQBO7417-17-37 18:46:00 Test Item Value Reference Range Interpretation Comments B/C Ratio (test code = B/C Ratio) 18 6-25 [facility] MichiganBgjwkinRVRCLTOEUXCL8535-03-52 18:46:00 Test Item Value Reference Range Interpretation Comments A/G Ratio (test code = A/G Ratio) 1.1 0.7-1.6 [facility] MichiganCpaovcfRVMTFCGDXSOE5696-74-84 18:46:00 Test Item Value Reference Range Interpretation Comments Globulin (test code = Globulin) 3.3 2.0-4.0 [facility] MichiganJckngmeRTEVWIFIQLMI8995-48-88 18:46:00 Test Item Value Reference Range Interpretation Comments eGFR (test code = eGFR) 99 [facility] MichiganLiviaboXWYLJSUCXZHE6696-13-79 18:46:00 Test Item Value Reference Range Interpretation Comments Calcium Lvl (test code = Calcium Lvl) 9.0 8.5-10.5 [facility] MichiganEmguxlfKRTGECFBDNVO0365-57-51 18:46:00 Test Item Value Reference Range Interpretation Comments Chloride Lvl (test code = Chloride Lvl) 106 95-109 [facility] MichiganLafnuiuASGJKXGWIYXJ1887-40-07 18:46:00 Test Item Value Reference Range Interpretation Comments Creatinine Lvl (test code = Creatinine 0.9 0.5-1.4 Lvl) [facility] MichiganSzyevofUIWUBGSHFHHK7198-65-88 18:46:00 Test Item Value Reference Range Interpretation Comments Potassium Lvl (test code = Potassium 4.2 3.5-5.1 Lvl) [facility] MichiganYnnbyotLNTDBUIAGWQB1209-41-38 18:46:00 Test Item Value Reference Range Interpretation Comments Sodium Lvl (test code = Sodium Lvl) 139 135-145 [facility] MichiganRabebrcMFVRYZPESHPM4076-97-74 18:46:00 Test Item Value Reference Range Interpretation Comments CO2 (test code = CO2) 24 24-32 [facility] MichiganHdkuxyyZECXWFNROMJW0735-13-48 18:46:00 Test Item Value Reference Range Interpretation Comments BUN (test code = BUN) 16 7-22 [facility] MichiganXwyztshMWFLIPISTTGJ0135-88-13 18:46:00 Test Item Value Reference Range Interpretation Comments Glucose Lvl (test code = Glucose Lvl) 141 70-99 [facility] MichiganVfdablhVLXVUUJZWIMW9452-42-98 18:46:00 Test Item Value Reference Range Interpretation Comments Albumin Lvl (test code = Albumin Lvl) 3.6 3.5-5.0 [facility] MichiganTmwqadjBPVUBXKDVGQA8567-64-72 18:46:00 Test Item Value Reference Range Interpretation Comments Alk Phos (test code = Alk Phos) 65 39-136 [facility] MichiganXrlbzvyJKTMLMOKBALS2254-63-98 18:46:00 Test Item Value Reference Range Interpretation Comments Bili Total (test code = Bili Total) 0.3 0.2-1.3 [facility] MichiganAdwcjabOBCQMIPSKNGY5991-95-62 18:46:00 Test Item Value Reference Range Interpretation Comments ALT (test code = ALT) 100 See_Comment [Auto mated message] The system which ge nerated this result transmit elizabeth reference range : <=65. The reference range was not used to interpr et this result as lukas l/abnormal. [facility] MichiganEswyyeuSTWXTJKICIXS4641-47-52 18:46:00 Test Item Value Reference Range Interpretation Comments AST (test code = AST) 53 See_Comment [Auto mated message] The system which ge nerated this result transmit elizabeth reference range : <=37. The reference range was not used to interpr et this result as lukas l/abnormal. [facility] MichiganYbpllysZAMGPKZUVEHA9883-56-70 18:46:00 Test Item Value Reference Range Interpretation Comments Total Protein (test code = Total 6.9 6.4-8.4 Protein) [facility] HospitalIfugqumUSRNGTLNUD3291-72-22 18:46:00 Test Item Value Reference Range Interpretation Comments Eosinophils (test code = 4.2 See_Comment [A utomated message] The Eosinophils) system which ge nerated this result tra nsmitted reference range : <=4.0. The reference r mitra was not used to int erpret this result as normal/abnormal . [facility] HospitalNvcflfpZMLEYNRORD4367-17-42 18:46:00 Test Item Value Reference Range Interpretation Comments Segs (test code = Segs) 56.4 45.0-75.0 [facility] HospitalJbmyrhjMAPWUQLZJZ3678-34-26 18:46:00 Test Item Value Reference Range Interpretation Comments Monocytes (test code = Monocytes) 10.3 2.0-12.0 [facility] HospitalCkzfuecZUAAXJNZEA8505-32-71 18:46:00 Test Item Value Reference Range Interpretation Comments Lymphocytes (test code = Lymphocytes) 28.0 20.0-40.0 [facility] HospitalChlqjuqRLXWICKVMW2154-03-33 18:46:00 Test Item Value Reference Range Interpretation Comments Monocytes # (test code 0.5 See_Comment [Aut omated message] The = Monocytes #) system which generated this result tra nsmitted reference range : <=0.8. The reference r mitra was not used to int erpret this result as normal/abnormal . [facility] HospitalDawvrkfWRXLOZFIIU5676-85-74 18:46:00 Test Item Value Reference Range Interpretation Comments Basophils (test code = 1.1 See_Comment [Aut omated message] The Basophils) system which ge nerated this result tra nsmitted reference range : <=1.0. The reference r mitra was not used to int erpret this result as normal/abnormal . [facility] HospitalOkpjqfnBGRJIPYNXE5696-17-48 18:46:00 Test Item Value Reference Range Interpretation Comments Lymphocytes # (test code = Lymphocytes 1.5 1.0-5.5 #) [facility] HospitalGwpsjlkQDSOECLYKB9384-29-18 18:46:00 Test Item Value Reference Range Interpretation Comments Segs-Bands # (test code = Segs-Bands #) 2.9 1.5-8.1 [facility] H[id number] 18:46:00 Test Item Value Reference Range Interpretation Comments Eosinophils # (test code 0.2 See_Comment [A utomated message] The = Eosinophils #) system whic h generated this result tra nsmitted reference range : <=0.5. The reference r mitra was not used to int erpret this result as normal/abnormal . [facility] HospitalPqtcsxwEMUOKLGGJH1138-95-06 18:46:00 Test Item Value Reference Range Interpretation Comments Basophils # (test code 0.1 See_Comment [Aut omated message] The = Basophils #) system which generated this result tra nsmitted reference range : <=0.2. The reference r mitra was not used to int erpret this result as normal/abnormal . [facility] HospitalAxsmnwfATJSTGKWRD4674-36-23 18:46:00 Test Item Value Reference Range Interpretation Comments PT (test code = PT) 11.2 s 12.0-14.7 [facility] HospitalQaxcvodNBBVCEEFZB7992-14-26 18:46:00 Test Item Value Reference Range Interpretation Comments INR (test code = INR) 0.82 0.85-1.17 [facility] HospitalTgoanjhWARXYOCAKB9178-21-19 18:46:00 Test Item Value Reference Range Interpretation Comments PTT (test code = PTT) 28.6 s 22.9-35.8 [facility] HospitalUajxgdyRNCVKKQSIC1726-15-53 18:46:00 Test Item Value Reference Range Interpretation Comments MPV (test code = MPV) 8.1 7.4-10.4 [facility] HospitalNwslvnaTLHBTZAJCN5409-90-16 18:46:00 Test Item Value Reference Range Interpretation Comments Platelet (test code = Platelet) 301 133-450 [facility] HospitalEhinhggZAQYAMGEGT9586-90-02 18:46:00 Test Item Value Reference Range Interpretation Comments RDW (test code = RDW) 14.5 11.5-14.5 [facility]WunmlglIYDWOVYNVU1093-94-44 18:46:00 Test Item Value Reference Range Interpretation Comments RBC (test code = RBC) 4.84 4.70-6.10 [facility]MllhqtuKIFMDKBYCK4079-85-75 18:46:00 Test Item Value Reference Range Interpretation Comments Hgb (test code = Hgb) 14.4 14.0-18.0 [facility] HospitalJtjuidkBKQSMLBTZT9755-94-06 18:46:00 Test Item Value Reference Range Interpretation Comments WBC (test code = WBC) 5.2 3.7-10.4 [facility] HospitalUvsmmsdHGDTNTDTFB3477-88-18 18:46:00 Test Item Value Reference Range Interpretation Comments MCH (test code = MCH) 29.8 pg 27.0-31.0 [facility] HospitalOlvbpdvGOJUDSEYSO8916-56-54 18:46:00 Test Item Value Reference Range Interpretation Comments MCV (test code = MCV) 92.0 80.0-94.0 [facility] LancasterJwnhirkJJPJSTXGRX2853-21-81 18:46:00 Test Item Value Reference Range Interpretation Comments Hct (test code = Hct) 44.5 42.0-54.0 [facility]bhmtpGEMVRPYOWZ8014-82-67 18:46:00 Test Item Value Reference Range Interpretation Comments MCHC (test code = MCHC) 32.4 32.0-36.0 [facility] LancasterLzileosKBIJSEYNSC8184-29-37 18:46:00 Test Item Value Reference Range Interpretation Comments [place]-Hep C Ab (test Negative *NA*(07/22/14 code = [place]-Hep C 1:46 PM) Ab) [facility] AND [id number] 18:46:00 Test Item Value Reference Range Interpretation Comments UA Urobilinogen (test code = UA <=1.0 mg/dL 0.1-1.0 Urobilinogen) [facility] [id number] 18:46:00 Test Item Value Reference Range Interpretation Comments UA Sq Epi (test code = UA Sq Epi) None [facility]en [facility] [id number] 18:46:00 Test Item Value Reference Range Interpretation Comments UA Leuk Est (test Negative (07/22/14 1:46 code = UA Leuk Est) PM) [facility] AND [id number] 18:46:00 Test Item Value Reference Range Interpretation Comments UA Nitrite (test code Negative (07/22/14 1:46 = UA Nitrite) PM) [facility] AND [id number] 18:46:00 Test Item Value Reference Range Interpretation Comments UA Blood (test code = Negative (07/22/14 1:46 UA Blood) PM) [facility] AND [id number] 18:46:00 Test Item Value Reference Range Interpretation Comments UA Ketones (test code = UA Negative mg/dL Ketones) [facility] AND [id number] 18:46:00 Test Item Value Reference Range Interpretation Comments UA Bili (test code = Negative *NA*(07/22/14 UA Bili) 1:46 PM) [facility] AND [id number] 18:46:00 Test Item Value Reference Range Interpretation Comments UA Bacteria (test code = UA Occasional /HPF Bacteria) [facility] AND [id number] 18:46:00 Test Item Value Reference Range Interpretation Comments UA RBC (test code = no gt See_Comment [Automa elizabeth message] The UA RBC) system which ge nerated this result transmit elizabeth reference range : <=2. The reference range was not used to interpr et this result as lukas l/abnormal. [facility] AND [id number] 18:46:00 Test Item Value Reference Range Interpretation Comments UA WBC (test code = 1 See_Comment [Automa elizabeth message] The UA WBC) system which ge nerated this result transmit elizabeth reference range : <=5. The reference range was not used to interpr et this result as lukas l/abnormal. [facility] AND [id number] 18:46:00 Test Item Value Reference Range Interpretation Comments UA Glucose (test code = UA Glucose) 30 mg/dL [facility] AND [id number] 18:46:00 Test Item Value Reference Range Interpretation Comments UA Protein (test code = UA Negative mg/dL Protein) [facility] AND [id number] 18:46:00 Test Item Value Reference Range Interpretation Comments UA pH (test code = UA pH) 6.5 5.0-8.0 [facility] AND [id number] 18:46:00 Test Item Value Reference Range Interpretation Comments UA Turbidity (test code = Clear (07/22/14 1:46 UA Turbidity) PM) [facility] [id number] 18:46:00 Test Item Value Reference Range Interpretation Comments UA Spec Grav (test code = UA Spec Grav) 1.010 [facility] AND [id number] 18:46:00 Test Item Value Reference Range Interpretation Comments UA Color (test code = Light Yellow UA Color) *NA*(07/22/14 1:46 PM) [facility] [id number] 18:46:00 Test Item Value Reference Range Interpretation Comments Magnesium Lvl (test code = Magnesium 1.8 1.8-2.4 Lvl) [facility]TOJQVDMEWXCP7887-18-12 18:46:00 Test Item Value Reference Range Interpretation Comments AGAP (test code = AGAP) 13.2 10.0-20.0 [facility]CsazkccWLYMCNJRFZDQ5160-76-42 18:46:00 Test Item Value Reference Range Interpretation Comments B/C Ratio (test code = B/C Ratio) 18 6-25 [facility] MichiganAfveojvEBGLZMDQZEUI2999-18-16 18:46:00 Test Item Value Reference Range Interpretation Comments A/G Ratio (test code = A/G Ratio) 1.1 0.7-1.6 [facility] HospitalCcltugbNTLMEQRMEJYY4729-69-50 18:46:00 Test Item Value Reference Range Interpretation Comments Globulin (test code = Globulin) 3.3 2.0-4.0 [facility] HospitalUiminpgBOFRVOOKDYCV5593-01-23 18:46:00 Test Item Value Reference Range Interpretation Comments eGFR (test code = eGFR) 99 [facility]GqirsynTECVZDZJXWIE5940-13-63 18:46:00 Test Item Value Reference Range Interpretation Comments Calcium Lvl (test code = Calcium Lvl) 9.0 8.5-10.5 [facility] HospitalGwfbazrWSQVZQXYSGHZ0227-22-94 18:46:00 Test Item Value Reference Range Interpretation Comments Chloride Lvl (test code = Chloride Lvl) 106 95-109 [facility]JncjfrkQFCLCNNMZQXX8967-93-91 18:46:00 Test Item Value Reference Range Interpretation Comments Creatinine Lvl (test code = Creatinine 0.9 0.5-1.4 Lvl) [facility] MichiganXdxorjtYIZVAJNVBMBT1258-23-57 18:46:00 Test Item Value Reference Range Interpretation Comments Potassium Lvl (test code = Potassium 4.2 3.5-5.1 Lvl) [facility]IalvchbRFGPEVABXGOD8522-76-65 18:46:00 Test Item Value Reference Range Interpretation Comments Sodium Lvl (test code = Sodium Lvl) 139 135-145 [facility]VmipqtxQZIKJSHERKPQ4049-06-33 18:46:00 Test Item Value Reference Range Interpretation Comments CO2 (test code = CO2) 24 24-32 [facility]UlwhtgeWADYTJKNFFAV7345-05-09 18:46:00 Test Item Value Reference Range Interpretation Comments BUN (test code = BUN) 16 7-22 [facility] MichiganRgqmfppBHANONWBOHNH8273-41-25 18:46:00 Test Item Value Reference Range Interpretation Comments Glucose Lvl (test code = Glucose Lvl) 141 70-99 [facility] MichiganGpprnwlHLGICLWUGOFW9941-95-70 18:46:00 Test Item Value Reference Range Interpretation Comments Albumin Lvl (test code = Albumin Lvl) 3.6 3.5-5.0 [facility] MichiganJqiilcaLYAYMQRSSTEX8253-60-02 18:46:00 Test Item Value Reference Range Interpretation Comments Alk Phos (test code = Alk Phos) 65 39-136 [facility] MichiganVuvrxdsMMSELRLNPLWO2861-94-30 18:46:00 Test Item Value Reference Range Interpretation Comments Bili Total (test code = Bili Total) 0.3 0.2-1.3 [facility] MichiganGcrciotAQYSPKBHKAJC2646-61-07 18:46:00 Test Item Value Reference Range Interpretation Comments ALT (test code = ALT) 100 See_Comment [Auto mated message] The system which ge nerated this result transmit elizabeth reference range : <=65. The reference range was not used to interpr et this result as lukas l/abnormal. [facility] MichiganWjkonezUDEFJQODNFEC3125-63-40 18:46:00 Test Item Value Reference Range Interpretation Comments AST (test code = AST) 53 See_Comment [Auto mated message] The system which ge nerated this result transmit elizabeth reference range : <=37. The reference range was not used to interpr et this result as lukas l/abnormal. [facility] MichiganXogolsyJMYHJSRQWRFG3633-24-41 18:46:00 Test Item Value Reference Range Interpretation Comments Total Protein (test code = Total 6.9 6.4-8.4 Protein) [facility] HospitalBjvfxueKPLUMEPZGM6759-48-93 18:46:00 Test Item Value Reference Range Interpretation Comments Eosinophils (test code = 4.2 See_Comment [A utomated message] The Eosinophils) system which ge nerated this result tra nsmitted reference range : <=4.0. The reference r mitra was not used to int erpret this result as normal/abnormal . [facility] HospitalUvsnggzGXGPKOEOMF4431-55-53 18:46:00 Test Item Value Reference Range Interpretation Comments Segs (test code = Segs) 56.4 45.0-75.0 [facility] HospitalBbidzniDTMSWMMEPJ0761-69-17 18:46:00 Test Item Value Reference Range Interpretation Comments Monocytes (test code = Monocytes) 10.3 2.0-12.0 [facility] HospitalCdeikivOFDGVTTMNQ0336-26-86 18:46:00 Test Item Value Reference Range Interpretation Comments Lymphocytes (test code = Lymphocytes) 28.0 20.0-40.0 [facility] HospitalMllulpxNICXMJWPKE4359-80-63 18:46:00 Test Item Value Reference Range Interpretation Comments Monocytes # (test code 0.5 See_Comment [Aut omated message] The = Monocytes #) system which generated this result tra nsmitted reference range : <=0.8. The reference r mitra was not used to int erpret this result as normal/abnormal . [facility] HospitalIzyoglfCXJZWFNCEI2084-22-72 18:46:00 Test Item Value Reference Range Interpretation Comments Basophils (test code = 1.1 See_Comment [Aut omated message] The Basophils) system which ge nerated this result tra nsmitted reference range : <=1.0. The reference r mitra was not used to int erpret this result as normal/abnormal . [facility] HospitalDraqbifKXNVVURCBN1327-84-99 18:46:00 Test Item Value Reference Range Interpretation Comments Lymphocytes # (test code = Lymphocytes 1.5 1.0-5.5 #) [facility] HospitalZcdmyeiYOKXTPTEDX9449-91-91 18:46:00 Test Item Value Reference Range Interpretation Comments Segs-Bands # (test code = Segs-Bands #) 2.9 1.5-8.1 [facility] HospitalQmscezjVNEDIZFGFN5670-28-11 18:46:00 Test Item Value Reference Range Interpretation Comments Eosinophils # (test code 0.2 See_Comment [A utomated message] The = Eosinophils #) system whic h generated this result tra nsmitted reference range : <=0.5. The reference r mitra was not used to int erpret this result as normal/abnormal . [facility] HospitalUqnoghpXWZCHKYDAS1552-82-83 18:46:00 Test Item Value Reference Range Interpretation Comments Basophils # (test code 0.1 See_Comment [Aut omated message] The = Basophils #) system which generated this result tra nsmitted reference range : <=0.2. The reference r mitra was not used to int erpret this result as normal/abnormal . [facility] HospitalFulktdmWAGNHHVZYS0528-41-83 18:46:00 Test Item Value Reference Range Interpretation Comments PT (test code = PT) 11.2 s 12.0-14.7 [facility] HospitalBsymprmRTEVMQPPJI3918-07-55 18:46:00 Test Item Value Reference Range Interpretation Comments INR (test code = INR) 0.82 0.85-1.17 [facility] HospitalXbqaqqbHGHTTQRRTD8589-19-03 18:46:00 Test Item Value Reference Range Interpretation Comments PTT (test code = PTT) 28.6 s 22.9-35.8 [facility] HospitalXsrrlczODEJQNGJCI4344-14-12 18:46:00 Test Item Value Reference Range Interpretation Comments MPV (test code = MPV) 8.1 7.4-10.4 [facility] HospitalQkxcsjhVNZIPAJLAI7620-79-15 18:46:00 Test Item Value Reference Range Interpretation Comments Platelet (test code = Platelet) 301 133-450 [facility] HospitalEcfdqetEQKEFBJOOC5085-13-79 18:46:00 Test Item Value Reference Range Interpretation Comments RDW (test code = RDW) 14.5 11.5-14.5 [facility] HospitalKyqxkvuQNQGBPIPWS8746-99-69 18:46:00 Test Item Value Reference Range Interpretation Comments RBC (test code = RBC) 4.84 4.70-6.10 [facility] HospitalKwtpjpnXNWMXNCRJD1518-74-40 18:46:00 Test Item Value Reference Range Interpretation Comments Hgb (test code = Hgb) 14.4 14.0-18.0 [facility] HospitalTfjzcguFOXJIPHJSG4115-15-67 18:46:00 Test Item Value Reference Range Interpretation Comments WBC (test code = WBC) 5.2 3.7-10.4 [facility] LancasterZeckumiQNTZDISULS4112-30-28 18:46:00 Test Item Value Reference Range Interpretation Comments MCH (test code = MCH) 29.8 pg 27.0-31.0 [facility] HospitalYampscoWGAPAKDDQT2281-87-99 18:46:00 Test Item Value Reference Range Interpretation Comments MCV (test code = MCV) 92.0 80.0-94.0 [facility] HospitalQqgsyxgBCGOOSSGGK4117-12-06 18:46:00 Test Item Value Reference Range Interpretation Comments Hct (test code = Hct) 44.5 42.0-54.0 [facility] LancasterWpsjszqOJUEWDVUFI8651-17-61 18:46:00 Test Item Value Reference Range Interpretation Comments MCHC (test code = MCHC) 32.4 32.0-36.0 [facility] LancasterJlihuxqSYVESGZRKW7801-23-08 18:46:00 Test Item Value Reference Range Interpretation Comments [place]-Hep C Ab (test Negative *NA*(07/22/14 code = [place]-Hep C 1:46 PM) Ab) [facility] AND [id number] 18:46:00 Test Item Value Reference Range Interpretation Comments UA Urobilinogen (test code = UA <=1.0 mg/dL 0.1-1.0 Urobilinogen) [facility] AND [id number] 18:46:00 Test Item Value Reference Range Interpretation Comments UA Sq Epi (test code = UA Sq Epi) None Seen [facility] AND [id number] 18:46:00 Test Item Value Reference Range Interpretation Comments UA Leuk Est (test Negative (07/22/14 1:46 code = UA Leuk Est) PM) [facility] AND [id number] 18:46:00 Test Item Value Reference Range Interpretation Comments UA Nitrite (test code Negative (07/22/14 1:46 = UA Nitrite) PM) [facility] AND [id number] 18:46:00 Test Item Value Reference Range Interpretation Comments UA Blood (test code = Negative (07/22/14 1:46 UA Blood) PM) [facility] AND [id number] 18:46:00 Test Item Value Reference Range Interpretation Comments UA Ketones (test code = UA Negative mg/dL Ketones) [facility] AND [id number] 18:46:00 Test Item Value Reference Range Interpretation Comments UA Bili (test code = Negative *NA*(07/22/14 UA Bili) 1:46 PM) [facility] AND [id number] 18:46:00 Test Item Value Reference Range Interpretation Comments UA Bacteria (test code = UA Occasional /HPF Bacteria) [facility] AND [id number] 18:46:00 Test Item Value Reference Range Interpretation Comments UA RBC (test code = no gt See_Comment [Automa elizabeth message] The UA RBC) system which ge nerated this result transmit elizabeth reference range : <=2. The reference range was not used to interpr et this result as lukas l/abnormal. [facility] AND [id number] 18:46:00 Test Item Value Reference Range Interpretation Comments UA WBC (test code = 1 See_Comment [Automa elizabeth message] The UA WBC) system which ge nerated this result transmit elizabteh reference range : <=5. The reference range was not used to interpr et this result as lukas l/abnormal. [facility] AND [id number] 18:46:00 Test Item Value Reference Range Interpretation Comments UA Glucose (test code = UA Glucose) 30 mg/dL [facility] AND [id number] 18:46:00 Test Item Value Reference Range Interpretation Comments UA Protein (test code = UA Negative mg/dL Protein) [facility] AND [id number] 18:46:00 Test Item Value Reference Range Interpretation Comments UA pH (test code = UA pH) 6.5 5.0-8.0 [facility] AND [id number] 18:46:00 Test Item Value Reference Range Interpretation Comments UA Turbidity (test code = Clear (07/22/14 1:46 UA Turbidity) PM) [facility] AND [id number] 18:46:00 Test Item Value Reference Range Interpretation Comments UA Spec Grav (test code = UA Spec Grav) 1.010 [facility] AND [id number] 18:46:00 Test Item Value Reference Range Interpretation Comments UA Color (test code = Light Yellow UA Color) *NA*(07/22/14 1:46 PM) [facility]2015-06-09 18:46:00 Test Item Value Reference Range Interpretation Comments Magnesium Lvl (test code = Magnesium 1.8 1.8-2.4 Lvl) [facility]JykobnjMCUDCFMSIVEY3530-52-50 18:46:00 Test Item Value Reference Range Interpretation Comments AGAP (test code = AGAP) 13.2 10.0-20.0 [facility] MichiganTcfjtxtBOPHKWJOVUXU5937-40-23 18:46:00 Test Item Value Reference Range Interpretation Comments B/C Ratio (test code = B/C Ratio) 18 6-25 [facility] MichiganAkllrfiZZCCORRMBFPR6011-40-20 18:46:00 Test Item Value Reference Range Interpretation Comments A/G Ratio (test code = A/G Ratio) 1.1 0.7-1.6 [facility] MichiganQhiyvfzMNBQGABMIPWU3779-55-29 18:46:00 Test Item Value Reference Range Interpretation Comments Globulin (test code = Globulin) 3.3 2.0-4.0 [facility] MichiganFtqahkcFCPFRQMPHAOF5880-55-25 18:46:00 Test Item Value Reference Range Interpretation Comments eGFR (test code = eGFR) 99 [facility] MichiganSlsokrgQDNZLXHLNQTK7467-31-87 18:46:00 Test Item Value Reference Range Interpretation Comments Calcium Lvl (test code = Calcium Lvl) 9.0 8.5-10.5 [facility] MichiganMrlkeqqTGADNUERXMOT8405-60-70 18:46:00 Test Item Value Reference Range Interpretation Comments Chloride Lvl (test code = Chloride Lvl) 106 95-109 [facility] MichiganVesbncrNEWTRPWWIRPG6512-03-99 18:46:00 Test Item Value Reference Range Interpretation Comments Creatinine Lvl (test code = Creatinine 0.9 0.5-1.4 Lvl) [facility] MichiganRbdpmnwQHGPTNDBOXTJ7501-67-39 18:46:00 Test Item Value Reference Range Interpretation Comments Potassium Lvl (test code = Potassium 4.2 3.5-5.1 Lvl) [facility] MichiganNvdbzadWLULOZJAMMNO7527-58-46 18:46:00 Test Item Value Reference Range Interpretation Comments Sodium Lvl (test code = Sodium Lvl) 139 135-145 [facility]IynxwddDZJORXXNPCSN0223-19-19 18:46:00 Test Item Value Reference Range Interpretation Comments CO2 (test code = CO2) 24 24-32 [facility] MichiganPuneusjFIPIXJCVSETQ2838-07-63 18:46:00 Test Item Value Reference Range Interpretation Comments BUN (test code = BUN) 16 7-22 [facility] MichiganJeusvkuRVQMRVPKKTRE1941-68-34 18:46:00 Test Item Value Reference Range Interpretation Comments Glucose Lvl (test code = Glucose Lvl) 141 70-99 [facility] MichiganRoximjtBVRNTVYEYSRD0469-62-18 18:46:00 Test Item Value Reference Range Interpretation Comments Albumin Lvl (test code = Albumin Lvl) 3.6 3.5-5.0 [facility] MichiganGuqoxvtSHIGABHUNUVR0272-12-31 18:46:00 Test Item Value Reference Range Interpretation Comments Alk Phos (test code = Alk Phos) 65 39-136 [facility] MichiganUaszqnqSQMMFJQBFDMA1371-97-71 18:46:00 Test Item Value Reference Range Interpretation Comments Bili Total (test code = Bili Total) 0.3 0.2-1.3 [facility] MichiganGoezvblCWALTCWYMUGV8036-82-62 18:46:00 Test Item Value Reference Range Interpretation Comments ALT (test code = ALT) 100 See_Comment [Auto mated message] The system which ge nerated this result transmit elizabeth reference range : <=65. The reference range was not used to interpr et this result as lukas l/abnormal. [facility] MichiganEqtlqpiUUEZOOSJHFRA3117-90-95 18:46:00 Test Item Value Reference Range Interpretation Comments AST (test code = AST) 53 See_Comment [Auto mated message] The system which ge nerated this result transmit elizabeth reference range : <=37. The reference range was not used to interpr et this result as lukas l/abnormal. [facility] MichiganIqncaagVCJYKLXGJKLN5787-84-08 18:46:00 Test Item Value Reference Range Interpretation Comments Total Protein (test code = Total 6.9 6.4-8.4 Protein) [facility] HospitalFpkllpsVXOSXMXVQQ4724-22-90 18:46:00 Test Item Value Reference Range Interpretation Comments Eosinophils (test code = 4.2 See_Comment [A utomated message] The Eosinophils) system which ge nerated this result tra nsmitted reference range : <=4.0. The reference r mitra was not used to int erpret this result as normal/abnormal . [facility] HospitalVfvrmrjTKKTIYUQVL6392-25-16 18:46:00 Test Item Value Reference Range Interpretation Comments Segs (test code = Segs) 56.4 45.0-75.0 [facility] HospitalZkfeclsOMNMFPUCZP2315-97-52 18:46:00 Test Item Value Reference Range Interpretation Comments Monocytes (test code = Monocytes) 10.3 2.0-12.0 [place] 641685-06-09 18:46:00 Test Item Value Reference Range Interpretation Comments Lymphocytes (test code = Lymphocytes) 28.0 20.0-40.0 [facility] HospitalTmsgoasYTQNIIKMJT8468-02-35 18:46:00 Test Item Value Reference Range Interpretation Comments Monocytes # (test code 0.5 See_Comment [Aut omated message] The = Monocytes #) system which generated this result tra nsmitted reference range : <=0.8. The reference r mitra was not used to int erpret this result as normal/abnormal . [facility] HospitalTrragbySFPMQCPNNY8690-52-25 18:46:00 Test Item Value Reference Range Interpretation Comments Basophils (test code = 1.1 See_Comment [Aut omated message] The Basophils) system which ge nerated this result tra nsmitted reference range : <=1.0. The reference r mitra was not used to int erpret this result as normal/abnormal . [facility] HospitalYfzrokoUAHOPFPSTY9885-37-64 18:46:00 Test Item Value Reference Range Interpretation Comments Lymphocytes # (test code = Lymphocytes 1.5 1.0-5.5 #) [facility] HospitalWmstchjZLXUCFPCIP9519-75-50 18:46:00 Test Item Value Reference Range Interpretation Comments Segs-Bands # (test code = Segs-Bands #) 2.9 1.5-8.1 [facility] HospitalLpjthvnBJNSTWJPVP1702-57-85 18:46:00 Test Item Value Reference Range Interpretation Comments Eosinophils # (test code 0.2 See_Comment [A utomated message] The = Eosinophils #) system whic h generated this result tra nsmitted reference range : <=0.5. The reference r mitra was not used to int erpret this result as normal/abnormal . [facility] HospitalWjfpfraIPOZWNFTWI8239-78-06 18:46:00 Test Item Value Reference Range Interpretation Comments Basophils # (test code 0.1 See_Comment [Aut omated message] The = Basophils #) system which generated this result tra nsmitted reference range : <=0.2. The reference r mitra was not used to int erpret this result as normal/abnormal . [facility] HospitalNolwvbwRSRAXYVVCS4693-11-09 18:46:00 Test Item Value Reference Range Interpretation Comments PT (test code = PT) 11.2 s 12.0-14.7 [facility] HospitalWggbgftJNUMCPGEDR9101-55-14 18:46:00 Test Item Value Reference Range Interpretation Comments INR (test code = INR) 0.82 0.85-1.17 [facility] HospitalGmxzodpKARCNUNZTD4554-59-53 18:46:00 Test Item Value Reference Range Interpretation Comments PTT (test code = PTT) 28.6 s 22.9-35.8 [facility] HospitalJfxivohCIPOAHMWKB5527-80-46 18:46:00 Test Item Value Reference Range Interpretation Comments MPV (test code = MPV) 8.1 7.4-10.4 [facility] HospitalPidbxwbTDJFLZFPCR5711-79-25 18:46:00 Test Item Value Reference Range Interpretation Comments Platelet (test code = Platelet) 301 133-450 [facility] HospitalMcnydqjJSRVVLNPYB0319-21-87 18:46:00 Test Item Value Reference Range Interpretation Comments RDW (test code = RDW) 14.5 11.5-14.5 [facility] HospitalNmjofurYLQAWXFRWF3824-06-91 18:46:00 Test Item Value Reference Range Interpretation Comments RBC (test code = RBC) 4.84 4.70-6.10 [facility] HospitalXnxijheIFIEBUTNTA4491-18-26 18:46:00 Test Item Value Reference Range Interpretation Comments Hgb (test code = Hgb) 14.4 14.0-18.0 [facility] HospitalIerwkstUDMVEMRDER0652-83-82 18:46:00 Test Item Value Reference Range Interpretation Comments WBC (test code = WBC) 5.2 3.7-10.4 [facility] HospitalAlzeeteTLQXYVQMNJ0236-31-16 18:46:00 Test Item Value Reference Range Interpretation Comments MCH (test code = MCH) 29.8 pg 27.0-31.0 [facility] HospitalHtrbxkzAWLKNGFJFQ6927-15-24 18:46:00 Test Item Value Reference Range Interpretation Comments MCV (test code = MCV) 92.0 80.0-94.0 [facility] HospitalGpxpuqxSZEFOSOISW2515-49-12 18:46:00 Test Item Value Reference Range Interpretation Comments Hct (test code = Hct) 44.5 42.0-54.0 [facility]PtlsnqjMQTECKKPNX4089-43-69 18:46:00 Test Item Value Reference Range Interpretation Comments MCHC (test code = MCHC) 32.4 32.0-36.0 [facility]NxqiztxGNNYWCGFKX5609-17-76 18:46:00 Test Item Value Reference Range Interpretation Comments [place]-Hep C Ab (test Negative *NA*(07/22/14 code = [place]-Hep C 1:46 PM) Ab) [facility] AND [id number] 18:46:00 Test Item Value Reference Range Interpretation Comments UA Urobilinogen (test code = UA <=1.0 mg/dL 0.1-1.0 Urobilinogen) [facility] AND [id number] 18:46:00 Test Item Value Reference Range Interpretation Comments UA Sq Epi (test code = UA Sq Epi) None Seen [facility] AND [id number] 18:46:00 Test Item Value Reference Range Interpretation Comments UA Leuk Est (test Negative (07/22/14 1:46 code = UA Leuk Est) PM) [facility] AND [id number] 18:46:00 Test Item Value Reference Range Interpretation Comments UA Nitrite (test code Negative (07/22/14 1:46 = UA Nitrite) PM) [facility] AND [id number] 18:46:00 Test Item Value Reference Range Interpretation Comments UA Blood (test code = Negative (07/22/14 1:46 UA Blood) PM) [facility] AND [id number] 18:46:00 Test Item Value Reference Range Interpretation Comments UA Ketones (test code = UA Negative mg/dL Ketones) [facility] AND [id number] 18:46:00 Test Item Value Reference Range Interpretation Comments UA Bili (test code = Negative *NA*(07/22/14 UA Bili) 1:46 PM) [facility] AND [id number] 18:46:00 Test Item Value Reference Range Interpretation Comments UA Bacteria (test code = UA Occasional /HPF Bacteria) [facility] AND [id number] 18:46:00 Test Item Value Reference Range Interpretation Comments UA RBC (test code = no gt See_Comment [Automa elizabeth message] The UA RBC) system which ge nerated this result transmit elizabeth reference range : <=2. The reference range was not used to interpr et this result as lukas l/abnormal. [facility] AND [id number] 18:46:00 Test Item Value Reference Range Interpretation Comments UA WBC (test code = 1 See_Comment [Automa elizabeth message] The UA WBC) system which ge nerated this result transmit elizabeth reference range : <=5. The reference range was not used to interpr et this result as lukas l/abnormal. [facility] [id number] 18:46:00 Test Item Value Reference Range Interpretation Comments UA Glucose (test code = UA Glucose) 30 mg/dL [facility] AND [id number] 18:46:00 Test Item Value Reference Range Interpretation Comments UA Protein (test code = UA Negative mg/dL Protein) [facility] AND [id number] 18:46:00 Test Item Value Reference Range Interpretation Comments UA pH (test code = UA pH) 6.5 5.0-8.0 [facility] AND [id number] 18:46:00 Test Item Value Reference Range Interpretation Comments UA Turbidity (test code = Clear (07/22/14 1:46 UA Turbidity) PM) [facility] AND [id number] 18:46:00 Test Item Value Reference Range Interpretation Comments UA Spec Grav (test code = UA Spec Grav) 1.010 [facility] AND [id number] 18:46:00 Test Item Value Reference Range Interpretation Comments UA Color (test code = Light Yellow UA Color) *NA*(07/22/14 1:46 PM) [facility] [id number] 18:46:00 Test Item Value Reference Range Interpretation Comments Magnesium Lvl (test code = Magnesium 1.8 1.8-2.4 Lvl) [facility] CenterRdqnlsqQEJYTQWZUKYH1407-95-17 18:46:00 Test Item Value Reference Range Interpretation Comments AGAP (test code = AGAP) 13.2 10.0-20.0 [facility] Center[id number] 18:46:00 Test Item Value Reference Range Interpretation Comments B/C Ratio (test code = B/C Ratio) 18 6-25 [facility]ck[facility]dxBUWTFBCKBHRC6179-30-91 18:46:00 Test Item Value Reference Range Interpretation Comments A/G Ratio (test code = A/G Ratio) 1.1 0.7-1.6 [facility]CutwvitVFVBBDZZNXDA1381-08-26 18:46:00 Test Item Value Reference Range Interpretation Comments Globulin (test code = Globulin) 3.3 2.0-4.0 [facility] MichiganBuyqtmrQDLQVPZVYAXG1966-96-17 18:46:00 Test Item Value Reference Range Interpretation Comments eGFR (test code = eGFR) 99 [facility] MichiganSdxsgrqDAWDPAIKXBIG0649-07-90 18:46:00 Test Item Value Reference Range Interpretation Comments Calcium Lvl (test code = Calcium Lvl) 9.0 8.5-10.5 [facility] MichiganDguphjmKYGWAEVECBJZ6150-20-22 18:46:00 Test Item Value Reference Range Interpretation Comments Chloride Lvl (test code = Chloride Lvl) 106 95-109 [facility] MichiganLnwowuuEQNGDLCODXZY9914-20-16 18:46:00 Test Item Value Reference Range Interpretation Comments Creatinine Lvl (test code = Creatinine 0.9 0.5-1.4 Lvl) [facility] MichiganAuxcnvwPYEFQISLRCKU7342-13-67 18:46:00 Test Item Value Reference Range Interpretation Comments Potassium Lvl (test code = Potassium 4.2 3.5-5.1 Lvl) [facility] MichiganOimcsndCMFJTCASWQUN5788-69-68 18:46:00 Test Item Value Reference Range Interpretation Comments Sodium Lvl (test code = Sodium Lvl) 139 135-145 [facility] MichiganFilbxllRVLECYZZTHFM4537-86-86 18:46:00 Test Item Value Reference Range Interpretation Comments CO2 (test code = CO2) 24 24-32 [facility] MichiganGtonhhtQQVBEDFGSWZF0614-60-74 18:46:00 Test Item Value Reference Range Interpretation Comments BUN (test code = BUN) 16 7-22 [facility] MichiganRqxrvjhVLARRHMGKWTT3179-74-26 18:46:00 Test Item Value Reference Range Interpretation Comments Glucose Lvl (test code = Glucose Lvl) 141 70-99 [facility] MichiganFqdvlqhFPXQJHJZNPIC5163-64-37 18:46:00 Test Item Value Reference Range Interpretation Comments Albumin Lvl (test code = Albumin Lvl) 3.6 3.5-5.0 [facility] MichiganBnpckbkGPSRYKRDEKRZ3872-52-16 18:46:00 Test Item Value Reference Range Interpretation Comments Alk Phos (test code = Alk Phos) 65 39-136 [facility] MichiganMnnjwvkFBMLVMJRKPET6149-38-06 18:46:00 Test Item Value Reference Range Interpretation Comments Bili Total (test code = Bili Total) 0.3 0.2-1.3 [facility] MichiganGulxrvcJNFFKWWXPAPP4169-73-47 18:46:00 Test Item Value Reference Range Interpretation Comments ALT (test code = ALT) 100 See_Comment [Auto mated message] The system which ge nerated this result transmit elizabeth reference range : <=65. The reference range was not used to interpr et this result as lukas l/abnormal. [facility] MichiganWkewwlrCYOFWOXNIXHZ3278-56-60 18:46:00 Test Item Value Reference Range Interpretation Comments AST (test code = AST) 53 See_Comment [Auto mated message] The system which ge nerated this result transmit elizabeth reference range : <=37. The reference range was not used to interpr et this result as lukas l/abnormal. [facility] MichiganSfzcktzLMNUKAWBIVMV2235-93-76 18:46:00 Test Item Value Reference Range Interpretation Comments Total Protein (test code = Total 6.9 6.4-8.4 Protein) [facility] HospitalGaxjjdyAPMIWAOPEB1772-14-83 18:46:00 Test Item Value Reference Range Interpretation Comments Eosinophils (test code = 4.2 See_Comment [A utomated message] The Eosinophils) system which ge nerated this result tra nsmitted reference range : <=4.0. The reference r mitra was not used to int erpret this result as normal/abnormal . [facility] HospitalThucnsdPIYXKWQYPI5300-29-82 18:46:00 Test Item Value Reference Range Interpretation Comments Segs (test code = Segs) 56.4 45.0-75.0 [facility] HospitalMkqbdtyAPDYMGQJQH0927-34-91 18:46:00 Test Item Value Reference Range Interpretation Comments Monocytes (test code = Monocytes) 10.3 2.0-12.0 [facility] HospitalXgtdycxTPALNLWFOM8932-07-77 18:46:00 Test Item Value Reference Range Interpretation Comments Lymphocytes (test code = Lymphocytes) 28.0 20.0-40.0 [facility] HospitalYqgnhjlANXKNCXFJO8101-37-75 18:46:00 Test Item Value Reference Range Interpretation Comments Monocytes # (test code 0.5 See_Comment [Aut omated message] The = Monocytes #) system which generated this result tra nsmitted reference range : <=0.8. The reference r mitra was not used to int erpret this result as normal/abnormal . [facility] HospitalFnyqlatNAXJAVVJZH4898-46-95 18:46:00 Test Item Value Reference Range Interpretation Comments Basophils (test code = 1.1 See_Comment [Aut omated message] The Basophils) system which ge nerated this result tra nsmitted reference range : <=1.0. The reference r mitra was not used to int erpret this result as normal/abnormal . [facility] HospitalBlwyslrYOWFCMEWGR3611-10-63 18:46:00 Test Item Value Reference Range Interpretation Comments Lymphocytes # (test code = Lymphocytes 1.5 1.0-5.5 #) [facility] HospitalIkwtgxmSHYMHKBZIG3605-25-99 18:46:00 Test Item Value Reference Range Interpretation Comments Segs-Bands # (test code = Segs-Bands #) 2.9 1.5-8.1 [facility] H[id number] 18:46:00 Test Item Value Reference Range Interpretation Comments Eosinophils # (test code 0.2 See_Comment [A utomated message] The = Eosinophils #) system whic h generated this result tra nsmitted reference range : <=0.5. The reference r mitra was not used to int erpret this result as normal/abnormal . [facility] HospitalAqfouluBAAXCTYAXZ9844-69-96 18:46:00 Test Item Value Reference Range Interpretation Comments Basophils # (test code 0.1 See_Comment [Aut omated message] The = Basophils #) system which generated this result tra nsmitted reference range : <=0.2. The reference r mitra was not used to int erpret this result as normal/abnormal . [facility] HospitalVsjxrfhBTKYODUCBR8986-62-01 18:46:00 Test Item Value Reference Range Interpretation Comments PT (test code = PT) 11.2 s 12.0-14.7 [facility] HospitalElmtonaHTUVKWLQAJ2775-37-47 18:46:00 Test Item Value Reference Range Interpretation Comments INR (test code = INR) 0.82 0.85-1.17 [facility] HospitalBhcgzdeSTVPTSHIRN8220-30-98 18:46:00 Test Item Value Reference Range Interpretation Comments PTT (test code = PTT) 28.6 s 22.9-35.8 [place] [id number] 18:46:00 Test Item Value Reference Range Interpretation Comments MPV (test code = MPV) 8.1 7.4-10.4 [facility]OwmumymVLMCHOYTYL2076-19-23 18:46:00 Test Item Value Reference Range Interpretation Comments Platelet (test code = Platelet) 301 133-450 [facility] HospitalEwcmxmgHDHZUDAISP4629-53-52 18:46:00 Test Item Value Reference Range Interpretation Comments RDW (test code = RDW) 14.5 11.5-14.5 [facility] HospitalPrcgzhsXMLZSSCIUQ3830-68-45 18:46:00 Test Item Value Reference Range Interpretation Comments RBC (test code = RBC) 4.84 4.70-6.10 [facility] HospitalLyezueuSOJHLHKVVD0181-17-14 18:46:00 Test Item Value Reference Range Interpretation Comments Hgb (test code = Hgb) 14.4 14.0-18.0 [facility] HospitalTmixuyaHYDPCKYFED9409-66-96 18:46:00 Test Item Value Reference Range Interpretation Comments WBC (test code = WBC) 5.2 3.7-10.4 [facility] HospitalXenaoqrGWYRHAGKND5598-69-97 18:46:00 Test Item Value Reference Range Interpretation Comments MCH (test code = MCH) 29.8 pg 27.0-31.0 [facility] HospitalHiuqdcfBNTWWKDJEE5348-62-06 18:46:00 Test Item Value Reference Range Interpretation Comments MCV (test code = MCV) 92.0 80.0-94.0 [facility] LancasterIbgwescFYGWLNVKAC2073-32-47 18:46:00 Test Item Value Reference Range Interpretation Comments Hct (test code = Hct) 44.5 42.0-54.0 [facility] LancasterOvbzcnyFHIWLBZIWU8056-71-68 18:46:00 Test Item Value Reference Range Interpretation Comments MCHC (test code = MCHC) 32.4 32.0-36.0 [facility] LancasterKqfpyzeQLYDEUVSXY7994-72-95 18:46:00 Test Item Value Reference Range Interpretation Comments [place]-Hep C Ab (test Negative *NA*(07/22/14 code = [place]-Hep C 1:46 PM) Ab) [facility] [id number] 18:46:00 Test Item Value Reference Range Interpretation Comments UA Urobilinogen (test code = UA <=1.0 mg/dL 0.1-1.0 Urobilinogen) [facility] AND [id number] 18:46:00 Test Item Value Reference Range Interpretation Comments UA Sq Epi (test code = UA Sq Epi) None Seen [facility] AND [id number] 18:46:00 Test Item Value Reference Range Interpretation Comments UA Leuk Est (test Negative (07/22/14 1:46 code = UA Leuk Est) PM) [facility] AND [id number] 18:46:00 Test Item Value Reference Range Interpretation Comments UA Nitrite (test code Negative (07/22/14 1:46 = UA Nitrite) PM) [facility] AND [id number] 18:46:00 Test Item Value Reference Range Interpretation Comments UA Blood (test code = Negative (07/22/14 1:46 UA Blood) PM) [facility] AND [id number] 18:46:00 Test Item Value Reference Range Interpretation Comments UA Ketones (test code = UA Negative mg/dL Ketones) [facility] AND [id number] 18:46:00 Test Item Value Reference Range Interpretation Comments UA Bili (test code = Negative *NA*(07/22/14 UA Bili) 1:46 PM) [facility] AND [id number] 18:46:00 Test Item Value Reference Range Interpretation Comments UA Bacteria (test code = UA Occasional /HPF Bacteria) [facility] AND [id number] 18:46:00 Test Item Value Reference Range Interpretation Comments UA RBC (test code = no gt See_Comment [Automa elizabeth message] The UA RBC) system which ge nerated this result transmit elizabeth reference range : <=2. The reference range was not used to interpr et this result as lukas l/abnormal. [facility] AND [id number] 18:46:00 Test Item Value Reference Range Interpretation Comments UA WBC (test code = 1 See_Comment [Automa elizabeth message] The UA WBC) system which ge nerated this result transmit elizabeth reference range : <=5. The reference range was not used to interpr et this result as lukas l/abnormal. [facility] AND [id number] 18:46:00 Test Item Value Reference Range Interpretation Comments UA Glucose (test code = UA Glucose) 30 mg/dL [facility] AND [id number] 18:46:00 Test Item Value Reference Range Interpretation Comments UA Protein (test code = UA Negative mg/dL Protein) [facility] AND [id number] 18:46:00 Test Item Value Reference Range Interpretation Comments UA pH (test code = UA pH) 6.5 5.0-8.0 [facility] AND [id number] 18:46:00 Test Item Value Reference Range Interpretation Comments UA Turbidity (test code = Clear (07/22/14 1:46 UA Turbidity) PM) [facility] AND [id number] 18:46:00 Test Item Value Reference Range Interpretation Comments UA Spec Grav (test code = UA Spec Grav) 1.010 [facility] AND [id number] 18:46:00 Test Item Value Reference Range Interpretation Comments UA Color (test code = Light Yellow UA Color) *NA*(07/22/14 1:46 PM) [facility] [id number] 18:46:00 Test Item Value Reference Range Interpretation Comments Magnesium Lvl (test code = Magnesium 1.8 1.8-2.4 Lvl) [facility]YfuubguRDDYUWZAEKSD7911-96-99 18:46:00 Test Item Value Reference Range Interpretation Comments AGAP (test code = AGAP) 13.2 10.0-20.0 [facility] MichiganLdafmrgZVPNTYLVLAPS8942-07-71 18:46:00 Test Item Value Reference Range Interpretation Comments B/C Ratio (test code = B/C Ratio) 18 6-25 [facility] MichiganVjydwuqHYBFIYDKGPFL2559-81-93 18:46:00 Test Item Value Reference Range Interpretation Comments A/G Ratio (test code = A/G Ratio) 1.1 0.7-1.6 [facility] MichiganWjkvtlwOPZIIAUCMUOF2665-77-02 18:46:00 Test Item Value Reference Range Interpretation Comments Globulin (test code = Globulin) 3.3 2.0-4.0 [facility] MichiganWaemvslKIYGKSMXYPDU3522-32-60 18:46:00 Test Item Value Reference Range Interpretation Comments eGFR (test code = eGFR) 99 [facility] MichiganJnuorjyMBSZMCVHTGLX8977-06-70 18:46:00 Test Item Value Reference Range Interpretation Comments Calcium Lvl (test code = Calcium Lvl) 9.0 8.5-10.5 [facility] MichiganXqwikfoHHQTMITIIGFO4354-45-25 18:46:00 Test Item Value Reference Range Interpretation Comments Chloride Lvl (test code = Chloride Lvl) 106 95-109 [facility] MichiganPqabnzxQPNQZCAOFCID7388-07-36 18:46:00 Test Item Value Reference Range Interpretation Comments Creatinine Lvl (test code = Creatinine 0.9 0.5-1.4 Lvl) [facility] MichiganYpbnkulDJHMSRYWTXEM4597-22-59 18:46:00 Test Item Value Reference Range Interpretation Comments Potassium Lvl (test code = Potassium 4.2 3.5-5.1 Lvl) [facility]PdzddjbXZBLBZDQQYIM8950-45-92 18:46:00 Test Item Value Reference Range Interpretation Comments Sodium Lvl (test code = Sodium Lvl) 139 135-145 [facility]OfgbxfkLZYVWSEEWPLH2098-55-48 18:46:00 Test Item Value Reference Range Interpretation Comments CO2 (test code = CO2) 24 24-32 [facility]EbtlzwxJZTXXLHEGAGX8243-36-73 18:46:00 Test Item Value Reference Range Interpretation Comments BUN (test code = BUN) 16 7-22 [facility] MichiganBwhvbxpGOGSZGZUAEED2227-30-21 18:46:00 Test Item Value Reference Range Interpretation Comments Glucose Lvl (test code = Glucose Lvl) 141 70-99 [facility] MichiganUmzgbyoXMEQCIPCLOHL3618-18-08 18:46:00 Test Item Value Reference Range Interpretation Comments Albumin Lvl (test code = Albumin Lvl) 3.6 3.5-5.0 [facility]YafquqbXGRKPHIJTYWE6143-88-94 18:46:00 Test Item Value Reference Range Interpretation Comments Alk Phos (test code = Alk Phos) 65 39-136 [facility]SipfkhlCIBQWATJPKFQ4383-79-66 18:46:00 Test Item Value Reference Range Interpretation Comments Bili Total (test code = Bili Total) 0.3 0.2-1.3 [facility] MichiganPrqfbheKXBMCAXXIQUL2778-56-78 18:46:00 Test Item Value Reference Range Interpretation Comments ALT (test code = ALT) 100 See_Comment [Auto mated message] The system which ge nerated this result transmit elizabeth reference range : <=65. The reference range was not used to interpr et this result as lukas l/abnormal. [facility] MichiganWauogjyKRRRYPSHFLYO5828-96-65 18:46:00 Test Item Value Reference Range Interpretation Comments AST (test code = AST) 53 See_Comment [Auto mated message] The system which ge nerated this result transmit elizabeth reference range : <=37. The reference range was not used to interpr et this result as lukas l/abnormal. [facility] MichiganOtwtviaFHDUVREIFORV4969-73-15 18:46:00 Test Item Value Reference Range Interpretation Comments Total Protein (test code = Total 6.9 6.4-8.4 Protein) [facility] HospitalRuirxunSVMFUXTVWH0897-27-56 18:46:00 Test Item Value Reference Range Interpretation Comments Eosinophils (test code = 4.2 See_Comment [A utomated message] The Eosinophils) system which ge nerated this result tra nsmitted reference range : <=4.0. The reference r mitra was not used to int erpret this result as normal/abnormal . [facility] HospitalAxadcuhVMWQUTCDEQ2789-97-29 18:46:00 Test Item Value Reference Range Interpretation Comments Segs (test code = Segs) 56.4 45.0-75.0 [facility] HospitalHpbyphhZSTEXXLGRS1212-13-56 18:46:00 Test Item Value Reference Range Interpretation Comments Monocytes (test code = Monocytes) 10.3 2.0-12.0 [facility] HospitalMtxbmkxFAJVDQNWHJ1401-57-49 18:46:00 Test Item Value Reference Range Interpretation Comments Lymphocytes (test code = Lymphocytes) 28.0 20.0-40.0 [facility] HospitalKfpjchjAERRSWRZHB4330-90-36 18:46:00 Test Item Value Reference Range Interpretation Comments Monocytes # (test code 0.5 See_Comment [Aut omated message] The = Monocytes #) system which generated this result tra nsmitted reference range : <=0.8. The reference r mitra was not used to int erpret this result as normal/abnormal . [facility] HospitalEwendlkBZVSDAGFXW3376-79-34 18:46:00 Test Item Value Reference Range Interpretation Comments Basophils (test code = 1.1 See_Comment [Aut omated message] The Basophils) system which ge nerated this result tra nsmitted reference range : <=1.0. The reference r mitra was not used to int erpret this result as normal/abnormal . [facility] HospitalTznaxxfETWEMKIOYP2615-57-33 18:46:00 Test Item Value Reference Range Interpretation Comments Lymphocytes # (test code = Lymphocytes 1.5 1.0-5.5 #) [facility] HospitalPuihgimCVQOSLQJQR8171-25-57 18:46:00 Test Item Value Reference Range Interpretation Comments Segs-Bands # (test code = Segs-Bands #) 2.9 1.5-8.1 [facility] HospitalFgagogiOWJWOWSXIY3789-07-23 18:46:00 Test Item Value Reference Range Interpretation Comments Eosinophils # (test code 0.2 See_Comment [A utomated message] The = Eosinophils #) system whic h generated this result tra nsmitted reference range : <=0.5. The reference r mitra was not used to int erpret this result as normal/abnormal . [facility] HospitalXbwxsksBHZHRCWDHR9038-89-59 18:46:00 Test Item Value Reference Range Interpretation Comments Basophils # (test code 0.1 See_Comment [Aut omated message] The = Basophils #) system which generated this result tra nsmitted reference range : <=0.2. The reference r mitra was not used to int erpret this result as normal/abnormal . [facility] HospitalVrgyzehMXJTXZXADV1681-92-24 18:46:00 Test Item Value Reference Range Interpretation Comments PT (test code = PT) 11.2 s 12.0-14.7 [facility] HospitalXcdvpzkCAZPIONSVE5690-91-34 18:46:00 Test Item Value Reference Range Interpretation Comments INR (test code = INR) 0.82 0.85-1.17 [facility] HospitalApoynlpYBOPXDSVYG2477-19-44 18:46:00 Test Item Value Reference Range Interpretation Comments PTT (test code = PTT) 28.6 s 22.9-35.8 [facility] HospitalEjldjxzIZCMQEILBV6759-70-43 18:46:00 Test Item Value Reference Range Interpretation Comments MPV (test code = MPV) 8.1 7.4-10.4 [facility] HospitalDwoaqabRSXPGIVGIS8211-69-64 18:46:00 Test Item Value Reference Range Interpretation Comments Platelet (test code = Platelet) 301 133-450 [facility] HospitalLodjdhmLHLDLGINQS3230-05-62 18:46:00 Test Item Value Reference Range Interpretation Comments RDW (test code = RDW) 14.5 11.5-14.5 [facility] HospitalMhyjbdkGVPJZWYHIY0244-36-63 18:46:00 Test Item Value Reference Range Interpretation Comments RBC (test code = RBC) 4.84 4.70-6.10 [facility] LancasterLukjbpzGFGIPDKSLD7111-82-67 18:46:00 Test Item Value Reference Range Interpretation Comments Hgb (test code = Hgb) 14.4 14.0-18.0 [facility] CgkcgbdRPEARDLLEP5211-69-04 18:46:00 Test Item Value Reference Range Interpretation Comments WBC (test code = WBC) 5.2 3.7-10.4 [facility]FtdkqziXEHPJWHEVJ1384-10-48 18:46:00 Test Item Value Reference Range Interpretation Comments MCH (test code = MCH) 29.8 pg 27.0-31.0 [facility] HospitalAfngfyrEPJUUWPTHI2901-27-47 18:46:00 Test Item Value Reference Range Interpretation Comments MCV (test code = MCV) 92.0 80.0-94.0 [facility] LancasterHprbsckJXYNVHUOFT8611-36-91 18:46:00 Test Item Value Reference Range Interpretation Comments Hct (test code = Hct) 44.5 42.0-54.0 [facility] LancasterQwwoshnOGTNGCCDAH7489-55-40 18:46:00 Test Item Value Reference Range Interpretation Comments MCHC (test code = MCHC) 32.4 32.0-36.0 [facility] LancasterNphncfrSCGNKMUXJT3014-75-13 18:46:00 Test Item Value Reference Range Interpretation Comments [place]-Hep C Ab (test Negative *NA*(07/22/14 code = [place]-Hep C 1:46 PM) Ab) [facility] AND [id number] 18:46:00 Test Item Value Reference Range Interpretation Comments UA Urobilinogen (test code = UA <=1.0 mg/dL 0.1-1.0 Urobilinogen) [facility] AND [id number] 18:46:00 Test Item Value Reference Range Interpretation Comments UA Sq Epi (test code = UA Sq Epi) None Seen [facility] AND [id number] 18:46:00 Test Item Value Reference Range Interpretation Comments UA Leuk Est (test Negative (07/22/14 1:46 code = UA Leuk Est) PM) [facility] AND [id number] 18:46:00 Test Item Value Reference Range Interpretation Comments UA Nitrite (test code Negative (07/22/14 1:46 = UA Nitrite) PM) [facility] [id number] 18:46:00 Test Item Value Reference Range Interpretation Comments UA Blood (test code = Negative (07/22/14 1:46 UA Blood) PM) [facility] AND [id number] 18:46:00 Test Item Value Reference Range Interpretation Comments UA Ketones (test code = UA Negative mg/dL Ketones) [facility] AND [id number] 18:46:00 Test Item Value Reference Range Interpretation Comments UA Bili (test code = Negative *NA*(07/22/14 UA Bili) 1:46 PM) [facility] AND [id number] 18:46:00 Test Item Value Reference Range Interpretation Comments UA Bacteria (test code = UA Occasional /HPF Bacteria) [facility] AND [id number] 18:46:00 Test Item Value Reference Range Interpretation Comments UA RBC (test code = no gt See_Comment [Automa elizabeth message] The UA RBC) system which ge nerated this result transmit elizabeth reference range : <=2. The reference range was not used to interpr et this result as lukas l/abnormal. [facility] AND [id number] 18:46:00 Test Item Value Reference Range Interpretation Comments UA WBC (test code = 1 See_Comment [Automa elizabeth message] The UA WBC) system which ge nerated this result transmit elizabeth reference range : <=5. The reference range was not used to interpr et this result as lukas l/abnormal. [facility] AND [id number] 18:46:00 Test Item Value Reference Range Interpretation Comments UA Glucose (test code = UA Glucose) 30 mg/dL [facility] AND [id number] 18:46:00 Test Item Value Reference Range Interpretation Comments UA Protein (test code = UA Negative mg/dL Protein) [facility] AND [id number] 18:46:00 Test Item Value Reference Range Interpretation Comments UA pH (test code = UA pH) 6.5 5.0-8.0 [facility] AND [id number] 18:46:00 Test Item Value Reference Range Interpretation Comments UA Turbidity (test code = Clear (07/22/14 1:46 UA Turbidity) PM) [facility] AND [id number] 18:46:00 Test Item Value Reference Range Interpretation Comments UA Spec Grav (test code = UA Spec Grav) 1.010 [facility] [id number] 18:46:00 Test Item Value Reference Range Interpretation Comments UA Color (test code = Light Yellow UA Color) *NA*(07/22/14 1:46 PM) [facility] [id number] 18:46:00 Test Item Value Reference Range Interpretation Comments Magnesium Lvl (test code = Magnesium 1.8 1.8-2.4 Lvl) [id number] 18:46:00 Test Item Value Reference Range Interpretation Comments AGAP (test code = AGAP) 13.2 10.0-20.0 [facility]TabqrunOPRIAVMNZPUV7667-39-80 18:46:00 Test Item Value Reference Range Interpretation Comments B/C Ratio (test code = B/C Ratio) 18 6-25 [facility] MichiganSefthjxGJEFUEBFXYMA3039-81-85 18:46:00 Test Item Value Reference Range Interpretation Comments A/G Ratio (test code = A/G Ratio) 1.1 0.7-1.6 [facility] MichiganQtrbksjLMPNUXFCTMHJ5368-61-39 18:46:00 Test Item Value Reference Range Interpretation Comments Globulin (test code = Globulin) 3.3 2.0-4.0 [facility] MichiganAlvqsyiGQGOFGJMXGIW7341-57-93 18:46:00 Test Item Value Reference Range Interpretation Comments eGFR (test code = eGFR) 99 [facility] MichiganRhbnmdfRACCVPXLVYMX0049-58-02 18:46:00 Test Item Value Reference Range Interpretation Comments Calcium Lvl (test code = Calcium Lvl) 9.0 8.5-10.5 [facility] MichiganQexdscyNLDPFMHONAPE2675-54-44 18:46:00 Test Item Value Reference Range Interpretation Comments Chloride Lvl (test code = Chloride Lvl) 106 95-109 [facility] MichiganDbnirveVCIUZMYCVIUA3197-89-74 18:46:00 Test Item Value Reference Range Interpretation Comments Creatinine Lvl (test code = Creatinine 0.9 0.5-1.4 Lvl) [facility] Mic[id number] 18:46:00 Test Item Value Reference Range Interpretation Comments Potassium Lvl (test code = Potassium 4.2 3.5-5.1 Lvl) [facility] MichiganNwyhliiOAHNDDUSNYAS8463-45-04 18:46:00 Test Item Value Reference Range Interpretation Comments Sodium Lvl (test code = Sodium Lvl) 139 135-145 [facility] MichiganDbadgkgBNERKRPOBWUQ2150-97-92 18:46:00 Test Item Value Reference Range Interpretation Comments CO2 (test code = CO2) 24 24-32 [facility] MichiganHpypntoSQMWBNEKJFKY7260-04-56 18:46:00 Test Item Value Reference Range Interpretation Comments BUN (test code = BUN) 16 7-22 [facility] MichiganHcvuyntYRWGGDDWJKPW9390-53-30 18:46:00 Test Item Value Reference Range Interpretation Comments Glucose Lvl (test code = Glucose Lvl) 141 70-99 [facility] MichiganLfmhezoHTYPPJJWVYDA4353-25-55 18:46:00 Test Item Value Reference Range Interpretation Comments Albumin Lvl (test code = Albumin Lvl) 3.6 3.5-5.0 [facility]PkonfwkWVMHDPJXXZWQ4456-45-35 18:46:00 Test Item Value Reference Range Interpretation Comments Alk Phos (test code = Alk Phos) 65 39-136 [facility] MichiganXdbyahjTPPLIPFKFJOU9022-19-66 18:46:00 Test Item Value Reference Range Interpretation Comments Bili Total (test code = Bili Total) 0.3 0.2-1.3 [facility] MichiganFxruszyCZTLQMXWORKF2544-53-38 18:46:00 Test Item Value Reference Range Interpretation Comments ALT (test code = ALT) 100 See_Comment [Auto mated message] The system which ge nerated this result transmit elizabeth reference range : <=65. The reference range was not used to interpr et this result as lukas l/abnormal. [facility] MichiganAcyprduDBBWXNDXHDYI7963-83-09 18:46:00 Test Item Value Reference Range Interpretation Comments AST (test code = AST) 53 See_Comment [Auto mated message] The system which ge nerated this result transmit elizabeth reference range : <=37. The reference range was not used to interpr et this result as lukas l/abnormal. [facility] MichiganOumcbvdOTTRNZWISAHJ1108-09-68 18:46:00 Test Item Value Reference Range Interpretation Comments Total Protein (test code = Total 6.9 6.4-8.4 Protein) [facility] LancasterYjwyuysTNZDPVNWIJ5286-86-23 18:46:00 Test Item Value Reference Range Interpretation Comments Eosinophils (test code = 4.2 See_Comment [A utomated message] The Eosinophils) system which ge nerated this result tra nsmitted reference range : <=4.0. The reference r mitra was not used to int erpret this result as normal/abnormal . [facility] HospitalFwsliflKVVMGFUOMJ0108-36-10 18:46:00 Test Item Value Reference Range Interpretation Comments Segs (test code = Segs) 56.4 45.0-75.0 [facility] HospitalGiktzdgCUZRBUGQIM0364-26-85 18:46:00 Test Item Value Reference Range Interpretation Comments Monocytes (test code = Monocytes) 10.3 2.0-12.0 [facility] HospitalPknfyleSHPNELQIYI1950-60-05 18:46:00 Test Item Value Reference Range Interpretation Comments Lymphocytes (test code = Lymphocytes) 28.0 20.0-40.0 [facility] HospitalBxzhxeaZAXDCJGZIQ5122-45-62 18:46:00 Test Item Value Reference Range Interpretation Comments Monocytes # (test code 0.5 See_Comment [Aut omated message] The = Monocytes #) system which generated this result tra nsmitted reference range : <=0.8. The reference r mitra was not used to int erpret this result as normal/abnormal . [facility] HospitalVnnfbcdVCUCFTOOTK3106-67-65 18:46:00 Test Item Value Reference Range Interpretation Comments Basophils (test code = 1.1 See_Comment [Aut omated message] The Basophils) system which ge nerated this result tra nsmitted reference range : <=1.0. The reference r mitra was not used to int erpret this result as normal/abnormal . [facility] HospitalPkkdhvdQTOIHKWQDR3572-74-86 18:46:00 Test Item Value Reference Range Interpretation Comments Lymphocytes # (test code = Lymphocytes 1.5 1.0-5.5 #) [facility] HospitalGjxwlugNDCVCJZJFO4212-67-12 18:46:00 Test Item Value Reference Range Interpretation Comments Segs-Bands # (test code = Segs-Bands #) 2.9 1.5-8.1 [facility] HospitalXyeprocHVSPNGPNRZ2428-14-93 18:46:00 Test Item Value Reference Range Interpretation Comments Eosinophils # (test code 0.2 See_Comment [A utomated message] The = Eosinophils #) system [facility] h generated this result tra nsmitted reference range : <=0.5. The reference r mitra was not used to int erpret this result as normal/abnormal . [facility] HospitalUkpwhptQKNGAIHEZF1632-09-68 18:46:00 Test Item Value Reference Range Interpretation Comments Basophils # (test code 0.1 See_Comment [Aut omated message] The = Basophils #) system which generated this result tra nsmitted reference range : <=0.2. The reference r mitra was not used to int erpret this result as normal/abnormal . [facility] HospitalBrvtnciQEJBHDTBIS4145-71-96 18:46:00 Test Item Value Reference Range Interpretation Comments PT (test code = PT) 11.2 s 12.0-14.7 [facility] HospitalQcgvbtnNBCMIGJJOM6728-98-22 18:46:00 Test Item Value Reference Range Interpretation Comments INR (test code = INR) 0.82 0.85-1.17 [facility] HospitalHaddzcuGBSOGXQDUJ3623-48-19 18:46:00 Test Item Value Reference Range Interpretation Comments PTT (test code = PTT) 28.6 s 22.9-35.8 [facility] HospitalZzfpwfwEAQQVBARCJ3223-99-20 18:46:00 Test Item Value Reference Range Interpretation Comments MPV (test code = MPV) 8.1 7.4-10.4 [facility] HospitalBhmqkkiSQAXHDSHEG9141-30-61 18:46:00 Test Item Value Reference Range Interpretation Comments Platelet (test code = Platelet) 301 133-450 [facility] HospitalYfwfhnhONRPDBIKIL1978-33-37 18:46:00 Test Item Value Reference Range Interpretation Comments RDW (test code = RDW) 14.5 11.5-14.5 [facility] HospitalOpuecccOUEFJTFYUP2778-34-31 18:46:00 Test Item Value Reference Range Interpretation Comments RBC (test code = RBC) 4.84 4.70-6.10 [facility] HospitalOpypmtmJKDXYJVBVF9343-06-33 18:46:00 Test Item Value Reference Range Interpretation Comments Hgb (test code = Hgb) 14.4 14.0-18.0 [facility] HospitalYhteavbUFELLTKSHG1371-75-97 18:46:00 Test Item Value Reference Range Interpretation Comments WBC (test code = WBC) 5.2 3.7-10.4 [facility] HospitalTdqtktuPUOJFUGPWG9725-56-18 18:46:00 Test Item Value Reference Range Interpretation Comments MCH (test code = MCH) 29.8 pg 27.0-31.0 [facility] HospitalAafhrzcHNHONUXAOT6966-96-46 18:46:00 Test Item Value Reference Range Interpretation Comments MCV (test code = MCV) 92.0 80.0-94.0 [facility] YkkltqqPBZNURMNEO5753-94-16 18:46:00 Test Item Value Reference Range Interpretation Comments Hct (test code = Hct) 44.5 42.0-54.0 [facility] LancasterRhovuyrKSUFBIKZWU7577-09-88 18:46:00 Test Item Value Reference Range Interpretation Comments MCHC (test code = MCHC) 32.4 32.0-36.0 [facility] LancasterLysftgxWCSLUWQSES0159-46-39 18:46:00 Test Item Value Reference Range Interpretation Comments [place]-Hep C Ab (test Negative *NA*(07/22/14 code = [place]-Hep C 1:46 PM) Ab) [facility] AND [id number] 18:46:00 Test Item Value Reference Range Interpretation Comments UA Urobilinogen (test code = UA <=1.0 mg/dL 0.1-1.0 Urobilinogen) [facility] AND [id number] 18:46:00 Test Item Value Reference Range Interpretation Comments UA Sq Epi (test code = UA Sq Epi) None Seen [facility] AND [id number] 18:46:00 Test Item Value Reference Range Interpretation Comments UA Leuk Est (test Negative (07/22/14 1:46 code = UA Leuk Est) PM) [facility] AND [id number] 18:46:00 Test Item Value Reference Range Interpretation Comments UA Nitrite (test code Negative (07/22/14 1:46 = UA Nitrite) PM) [facility] AND [id number] 18:46:00 Test Item Value Reference Range Interpretation Comments UA Blood (test code = Negative (07/22/14 1:46 UA Blood) PM) [facility] AND [id number] 18:46:00 Test Item Value Reference Range Interpretation Comments UA Ketones (test code = UA Negative mg/dL Ketones) [facility] AND [id number] 18:46:00 Test Item Value Reference Range Interpretation Comments UA Bili (test code = Negative *NA*(07/22/14 UA Bili) 1:46 PM) [facility] AND [id number] 18:46:00 Test Item Value Reference Range Interpretation Comments UA Bacteria (test code = UA Occasional /HPF Bacteria) [facility] AND [id number] 18:46:00 Test Item Value Reference Range Interpretation Comments UA RBC (test code = no gt See_Comment [Automa elizabeth message] The UA RBC) system which ge nerated this result transmit elizabeth reference range : <=2. The reference range was not used to interpr et this result as lukas l/abnormal. [facility] AND [id number] 18:46:00 Test Item Value Reference Range Interpretation Comments UA WBC (test code = 1 See_Comment [Automa elizabeth message] The UA WBC) system which ge nerated this result transmit elizabeth reference range : <=5. The reference range was not used to interpr et this result as lukas l/abnormal. [facility] AND [id number] 18:46:00 Test Item Value Reference Range Interpretation Comments UA Glucose (test code = UA Glucose) 30 mg/dL [facility] AND [id number] 18:46:00 Test Item Value Reference Range Interpretation Comments UA Protein (test code = UA Negative mg/dL Protein) [facility] AND [id number] 18:46:00 Test Item Value Reference Range Interpretation Comments UA pH (test code = UA pH) 6.5 5.0-8.0 [facility] AND [id number] 18:46:00 Test Item Value Reference Range Interpretation Comments UA Turbidity (test code = Clear (07/22/14 1:46 UA Turbidity) PM) [facility] AND [id number] 18:46:00 Test Item Value Reference Range Interpretation Comments UA Spec Grav (test code = UA Spec Grav) 1.010 [facility] AND [id number] 18:46:00 Test Item Value Reference Range Interpretation Comments UA Color (test code = Light Yellow UA Color) *NA*(07/22/14 1:46 PM) [facility]ann[facility] [id number] 18:46:00 Test Item Value Reference Range Interpretation Comments Magnesium Lvl (test code = Magnesium 1.8 1.8-2.4 Lvl) [facility] CenterVczppltGOLCYRXIWDLU5944-40-07 18:46:00 Test Item Value Reference Range Interpretation Comments AGAP (test code = AGAP) 13.2 10.0-20.0 [facility]AkfgzguEMVULVAVZLGE0882-30-52 18:46:00 Test Item Value Reference Range Interpretation Comments B/C Ratio (test code = B/C Ratio) 18 6-25 [facility] MichiganDucgbwcJXZASFJZCRED5179-45-82 18:46:00 Test Item Value Reference Range Interpretation Comments A/G Ratio (test code = A/G Ratio) 1.1 0.7-1.6 [facility] MichiganCejfnjrKKGNSLCGYJIX1334-19-95 18:46:00 Test Item Value Reference Range Interpretation Comments Globulin (test code = Globulin) 3.3 2.0-4.0 [facility]OksbkykEIOCARBLWGJV9619-25-60 18:46:00 Test Item Value Reference Range Interpretation Comments eGFR (test code = eGFR) 99 [facility]QdmgxijQKIJYFUKFYMS9632-99-18 18:46:00 Test Item Value Reference Range Interpretation Comments Calcium Lvl (test code = Calcium Lvl) 9.0 8.5-10.5 [facility] MichiganZyeyzgnWKBWVMTZSQTY6732-50-62 18:46:00 Test Item Value Reference Range Interpretation Comments Chloride Lvl (test code = Chloride Lvl) 106 95-109 [facility] MichiganLbjveksFGYTWGUNCKWZ4346-12-30 18:46:00 Test Item Value Reference Range Interpretation Comments Creatinine Lvl (test code = Creatinine 0.9 0.5-1.4 Lvl) [facility]KkyxuupRMEUCHEKVJOE3822-82-08 18:46:00 Test Item Value Reference Range Interpretation Comments Potassium Lvl (test code = Potassium 4.2 3.5-5.1 Lvl) [facility] MichiganSonoglsQVNSAGTYCOPP5292-47-16 18:46:00 Test Item Value Reference Range Interpretation Comments Sodium Lvl (test code = Sodium Lvl) 139 135-145 [facility] MichiganCtvuthaDOGELQDSFWCM6832-43-64 18:46:00 Test Item Value Reference Range Interpretation Comments CO2 (test code = CO2) 24 24-32 [facility]CtcmxiyVLCJWCGWZNXJ4499-26-55 18:46:00 Test Item Value Reference Range Interpretation Comments BUN (test code = BUN) 16 7-22 [facility]QgexyirPEBWJBONYPWL8781-51-37 18:46:00 Test Item Value Reference Range Interpretation Comments Glucose Lvl (test code = Glucose Lvl) 141 70-99 [facility] MichiganQxabsenSLUODYIZIHMP8388-36-77 18:46:00 Test Item Value Reference Range Interpretation Comments Albumin Lvl (test code = Albumin Lvl) 3.6 3.5-5.0 [facility] MichiganNizgspjIQWZSYTXRWKF9376-05-22 18:46:00 Test Item Value Reference Range Interpretation Comments Alk Phos (test code = Alk Phos) 65 39-136 [facility] MichiganJaexuqdYRKJOEKUCGFC2768-73-46 18:46:00 Test Item Value Reference Range Interpretation Comments Bili Total (test code = Bili Total) 0.3 0.2-1.3 [facility]PgfhkvaEMGDOJQKPJYZ1865-70-98 18:46:00 Test Item Value Reference Range Interpretation Comments ALT (test code = ALT) 100 See_Comment [Auto mated message] The system which ge nerated this result transmit elizabeth reference range : <=65. The reference range was not used to interpr et this result as lukas l/abnormal. [facility] MichiganRxyvvogAYWPMCAIBDTV1810-79-73 18:46:00 Test Item Value Reference Range Interpretation Comments AST (test code = AST) 53 See_Comment [Auto mated message] The system which ge nerated this result transmit elizabeth reference range : <=37. The reference range was not used to interpr et this result as lukas l/abnormal. [facility] MichiganYkjcfhzANQDCATAHKZO1342-02-32 18:46:00 Test Item Value Reference Range Interpretation Comments Total Protein (test code = Total 6.9 6.4-8.4 Protein) [facility] HospitalRulrcioBTBNEJEFKP0446-93-10 18:46:00 Test Item Value Reference Range Interpretation Comments Eosinophils (test code = 4.2 See_Comment [A utomated message] The Eosinophils) system which ge nerated this result tra nsmitted reference range : <=4.0. The reference r mitra was not used to int erpret this result as normal/abnormal . [facility] HospitalXdfheatPWRRJNLBJI7213-53-40 18:46:00 Test Item Value Reference Range Interpretation Comments Segs (test code = Segs) 56.4 45.0-75.0 [facility] HospitalFwalctvXMOUEPCKQE0650-48-33 18:46:00 Test Item Value Reference Range Interpretation Comments Monocytes (test code = Monocytes) 10.3 2.0-12.0 [facility] HospitalBnaauwiUMMDAWGYZC8841-88-89 18:46:00 Test Item Value Reference Range Interpretation Comments Lymphocytes (test code = Lymphocytes) 28.0 20.0-40.0 [facility] HospitalSrfypfbPEAYHZTVOC5256-59-84 18:46:00 Test Item Value Reference Range Interpretation Comments Monocytes # (test code 0.5 See_Comment [Aut omated message] The = Monocytes #) system which generated this result tra nsmitted reference range : <=0.8. The reference r mitra was not used to int erpret this result as normal/abnormal . [facility] HospitalWzgckrjVNVUXJMEMJ5555-71-50 18:46:00 Test Item Value Reference Range Interpretation Comments Basophils (test code = 1.1 See_Comment [Aut omated message] The Basophils) system which ge nerated this result tra nsmitted reference range : <=1.0. The reference r mitra was not used to int erpret this result as normal/abnormal . [facility] HospitalFzwlfzeBQNOJQIFYG4218-86-80 18:46:00 Test Item Value Reference Range Interpretation Comments Lymphocytes # (test code = Lymphocytes 1.5 1.0-5.5 #) [facility] HospitalAdsfenyLSSWDFTQGE3451-05-54 18:46:00 Test Item Value Reference Range Interpretation Comments Segs-Bands # (test code = Segs-Bands #) 2.9 1.5-8.1 [facility] HospitalCfzyckeRIKJFLSFXU4513-57-10 18:46:00 Test Item Value Reference Range Interpretation Comments Eosinophils # (test code 0.2 See_Comment [A utomated message] The = Eosinophils #) system whic h generated this result tra nsmitted reference range : <=0.5. The reference r mitra was not used to int erpret this result as normal/abnormal . [facility] HospitalQmcroyeDIMFCSQNQQ4839-31-11 18:46:00 Test Item Value Reference Range Interpretation Comments Basophils # (test code 0.1 See_Comment [Aut omated message] The = Basophils #) system which generated this result tra nsmitted reference range : <=0.2. The reference r mitra was not used to int erpret this result as normal/abnormal . [facility] HospitalOiahuptJWZDEGATZQ6963-01-51 18:46:00 Test Item Value Reference Range Interpretation Comments PT (test code = PT) 11.2 s 12.0-14.7 [facility] HospitalQbwjebsSYAQXTRODY3598-17-99 18:46:00 Test Item Value Reference Range Interpretation Comments INR (test code = INR) 0.82 0.85-1.17 [facility] HospitalJjxstfeJHNXZQADVD4983-31-57 18:46:00 Test Item Value Reference Range Interpretation Comments PTT (test code = PTT) 28.6 s 22.9-35.8 [facility] HospitalRywxmfiSXRXOTGORT5325-00-98 18:46:00 Test Item Value Reference Range Interpretation Comments MPV (test code = MPV) 8.1 7.4-10.4 [facility] HospitalWetkjxrKUZKDHSDFH2221-58-93 18:46:00 Test Item Value Reference Range Interpretation Comments Platelet (test code = Platelet) 301 133-450 [facility] HospitalGbhqfvmELTZYFUXCS7540-72-74 18:46:00 Test Item Value Reference Range Interpretation Comments RDW (test code = RDW) 14.5 11.5-14.5 [facility] HospitalSyezyzhDXMKDLWADY3932-99-82 18:46:00 Test Item Value Reference Range Interpretation Comments RBC (test code = RBC) 4.84 4.70-6.10 [facility] HospitalPedprxvUPHSSCGSYG3993-80-41 18:46:00 Test Item Value Reference Range Interpretation Comments Hgb (test code = Hgb) 14.4 14.0-18.0 [facility] HospitalIjgccdcQQPQLWJBES8059-41-98 18:46:00 Test Item Value Reference Range Interpretation Comments WBC (test code = WBC) 5.2 3.7-10.4 [facility] HospitalSjjbqtgPMTZQDSUDV2689-38-89 18:46:00 Test Item Value Reference Range Interpretation Comments MCH (test code = MCH) 29.8 pg 27.0-31.0 [facility] HospitalLcznahtPYGJEDKIKX3022-51-55 18:46:00 Test Item Value Reference Range Interpretation Comments MCV (test code = MCV) 92.0 80.0-94.0 [facility] HospitalLjebareZQBIQWNRAE0057-33-25 18:46:00 Test Item Value Reference Range Interpretation Comments Hct (test code = Hct) 44.5 42.0-54.0 [facility] HospitalQppvhrqSKOPMQNZTD7191-64-48 18:46:00 Test Item Value Reference Range Interpretation Comments MCHC (test code = MCHC) 32.4 32.0-36.0 [facility] LancasterLojygqrKTGKCJHBJW6242-33-85 18:46:00 Test Item Value Reference Range Interpretation Comments [place]-Hep C Ab (test Negative *NA*(07/22/14 code = [place]-Hep C 1:46 PM) Ab) [facility] AND [id number] 18:46:00 Test Item Value Reference Range Interpretation Comments UA Urobilinogen (test code = UA <=1.0 mg/dL 0.1-1.0 Urobilinogen) [facility] AND [id number] 18:46:00 Test Item Value Reference Range Interpretation Comments UA Sq Epi (test code = UA Sq Epi) None Seen [facility] AND [id number] 18:46:00 Test Item Value Reference Range Interpretation Comments UA Leuk Est (test Negative (07/22/14 1:46 code = UA Leuk Est) PM) [facility] AND [id number] 18:46:00 Test Item Value Reference Range Interpretation Comments UA Nitrite (test code Negative (07/22/14 1:46 = UA Nitrite) PM) [facility] AND [id number] 18:46:00 Test Item Value Reference Range Interpretation Comments UA Blood (test code = Negative (07/22/14 1:46 UA Blood) PM) [facility] AND [id number] 18:46:00 Test Item Value Reference Range Interpretation Comments UA Ketones (test code = UA Negative mg/dL Ketones) [facility] AND [id number] 18:46:00 Test Item Value Reference Range Interpretation Comments UA Bili (test code = Negative *NA*(07/22/14 UA Bili) 1:46 PM) [facility] AND [id number] 18:46:00 Test Item Value Reference Range Interpretation Comments UA Bacteria (test code = UA Occasional /HPF Bacteria) [facility] AND [id number] 18:46:00 Test Item Value Reference Range Interpretation Comments UA RBC (test code = no gt See_Comment [Automa elizabeth message] The UA RBC) system which ge nerated this result transmit elizabeth reference range : <=2. The reference range was not used to interpr et this result as lukas l/abnormal. [facility] AND [id number] 18:46:00 Test Item Value Reference Range Interpretation Comments UA WBC (test code = 1 See_Comment [Automa elizabeth message] The UA WBC) system which ge nerated this result transmit elizabeth reference range : <=5. The reference range was not used to interpr et this result as lukas l/abnormal. [facility] AND [id number] 18:46:00 Test Item Value Reference Range Interpretation Comments UA Glucose (test code = UA Glucose) 30 mg/dL [facility] AND [id number] 18:46:00 Test Item Value Reference Range Interpretation Comments UA Protein (test code = UA Negative mg/dL Protein) [facility] AND [id number] 18:46:00 Test Item Value Reference Range Interpretation Comments UA pH (test code = UA pH) 6.5 5.0-8.0 [facility] AND [id number] 18:46:00 Test Item Value Reference Range Interpretation Comments UA Turbidity (test code = Clear (07/22/14 1:46 UA Turbidity) PM) [facility] AND [id number] 18:46:00 Test Item Value Reference Range Interpretation Comments UA Spec Grav (test code = UA Spec Grav) 1.010 [facility] AND [id number] 18:46:00 Test Item Value Reference Range Interpretation Comments UA Color (test code = Light Yellow UA Color) *NA*(07/22/14 1:46 PM) [facility] [id number] 18:46:00 Test Item Value Reference Range Interpretation Comments Magnesium Lvl (test code = Magnesium 1.8 1.8-2.4 Lvl) [facility]hsADHQGWGMKHRU8097-35-30 18:46:00 Test Item Value Reference Range Interpretation Comments AGAP (test code = AGAP) 13.2 10.0-20.0 [facility]ZlxlqbsGLKHLKZQDEWP0766-46-73 18:46:00 Test Item Value Reference Range Interpretation Comments B/C Ratio (test code = B/C Ratio) 18 6-25 [facility] MichiganIylqvzmNKEDLWQJDSZE6151-73-80 18:46:00 Test Item Value Reference Range Interpretation Comments A/G Ratio (test code = A/G Ratio) 1.1 0.7-1.6 [facility]NpbrdavFLMXZWKJQPDB8614-84-00 18:46:00 Test Item Value Reference Range Interpretation Comments Globulin (test code = Globulin) 3.3 2.0-4.0 [facility]KqzttqkSBFEQJSRHXKV9724-84-68 18:46:00 Test Item Value Reference Range Interpretation Comments eGFR (test code = eGFR) 99 [facility]FtqwjsqWBWQVVZBXOPK2833-64-03 18:46:00 Test Item Value Reference Range Interpretation Comments Calcium Lvl (test code = Calcium Lvl) 9.0 8.5-10.5 [facility] MichiganNeuyeuyNQHAXIUHDDAM1906-99-18 18:46:00 Test Item Value Reference Range Interpretation Comments Chloride Lvl (test code = Chloride Lvl) 106 95-109 [facility] MichiganZoniylcHQNKKPSACIFT4076-64-47 18:46:00 Test Item Value Reference Range Interpretation Comments Creatinine Lvl (test code = Creatinine 0.9 0.5-1.4 Lvl) [facility] MichiganWkhslsaCAFINFGTVBBP8566-98-03 18:46:00 Test Item Value Reference Range Interpretation Comments Potassium Lvl (test code = Potassium 4.2 3.5-5.1 Lvl) [facility]ZvkssylKHQGMRWGFCTK8069-14-93 18:46:00 Test Item Value Reference Range Interpretation Comments Sodium Lvl (test code = Sodium Lvl) 139 135-145 [facility]JzqjxtfGXIYVBAGIXPT9281-55-86 18:46:00 Test Item Value Reference Range Interpretation Comments CO2 (test code = CO2) 24 24-32 [facility]NkrxpjtULBNAEUFUFOQ7276-81-69 18:46:00 Test Item Value Reference Range Interpretation Comments BUN (test code = BUN) 16 7-22 [facility] MichiganDpulovdJVZZBAYXHKGM4823-25-19 18:46:00 Test Item Value Reference Range Interpretation Comments Glucose Lvl (test code = Glucose Lvl) 141 70-99 [facility] MichiganKodqnyoOZWUMYQJXTJH7585-97-86 18:46:00 Test Item Value Reference Range Interpretation Comments Albumin Lvl (test code = Albumin Lvl) 3.6 3.5-5.0 [facility] MichiganLywetnvFOOFLKRCFFFH4907-61-16 18:46:00 Test Item Value Reference Range Interpretation Comments Alk Phos (test code = Alk Phos) 65 39-136 [facility] MichiganWkqcronKKOTHPXHQHZX9080-14-26 18:46:00 Test Item Value Reference Range Interpretation Comments Bili Total (test code = Bili Total) 0.3 0.2-1.3 [facility] MichiganPschtumVONWFFCONPQU3122-91-29 18:46:00 Test Item Value Reference Range Interpretation Comments ALT (test code = ALT) 100 See_Comment [Auto mated message] The system which ge nerated this result transmit elizabeth reference range : <=65. The reference range was not used to interpr et this result as lukas l/abnormal. [facility] MichiganTnkkibaWQTQXAAYTXJG1814-21-89 18:46:00 Test Item Value Reference Range Interpretation Comments AST (test code = AST) 53 See_Comment [Auto mated message] The system which ge nerated this result transmit elizabeth reference range : <=37. The reference range was not used to interpr et this result as lukas l/abnormal. [facility] MichiganJumiuviIXFJXSOKUPVP3104-94-59 18:46:00 Test Item Value Reference Range Interpretation Comments Total Protein (test code = Total 6.9 6.4-8.4 Protein) [facility]YpcpznkOGNNFNPEPA4325-67-11 18:46:00 Test Item Value Reference Range Interpretation Comments Eosinophils (test code = 4.2 See_Comment [A utomated message] The Eosinophils) system which ge nerated this result tra nsmitted reference range : <=4.0. The reference r mitra was not used to int erpret this result as normal/abnormal . [facility] HospitalAzutgtsSFAPBBVRDN7434-33-79 18:46:00 Test Item Value Reference Range Interpretation Comments Segs (test code = Segs) 56.4 45.0-75.0 [facility] HospitalCidvrysWGALDBAHPD2734-94-09 18:46:00 Test Item Value Reference Range Interpretation Comments Monocytes (test code = Monocytes) 10.3 2.0-12.0 [facility] HospitalGqehpwkDDUPQTAJIN2625-21-03 18:46:00 Test Item Value Reference Range Interpretation Comments Lymphocytes (test code = Lymphocytes) 28.0 20.0-40.0 [facility] HospitalMhqvmsmIHIRLXQBLI3132-73-41 18:46:00 Test Item Value Reference Range Interpretation Comments Monocytes # (test code 0.5 See_Comment [Aut omated message] The = Monocytes #) system which generated this result tra nsmitted reference range : <=0.8. The reference r mitra was not used to int erpret this result as normal/abnormal . [facility] HospitalIqzacexLKTKQZGEDI0553-56-61 18:46:00 Test Item Value Reference Range Interpretation Comments Basophils (test code = 1.1 See_Comment [Aut omated message] The Basophils) system which ge nerated this result tra nsmitted reference range : <=1.0. The reference r mitra was not used to int erpret this result as normal/abnormal . [facility] HospitalWunnrzdZNBEGRBALR1415-24-88 18:46:00 Test Item Value Reference Range Interpretation Comments Lymphocytes # (test code = Lymphocytes 1.5 1.0-5.5 #) [facility] HospitalRvnupdlBWOXUCBYFU8039-98-17 18:46:00 Test Item Value Reference Range Interpretation Comments Segs-Bands # (test code = Segs-Bands #) 2.9 1.5-8.1 [facility] HospitalAlqccavYLMOPVGYEO6647-51-22 18:46:00 Test Item Value Reference Range Interpretation Comments Eosinophils # (test code 0.2 See_Comment [A utomated message] The = Eosinophils #) system whic h generated this result tra nsmitted reference range : <=0.5. The reference r mitra was not used to int erpret this result as normal/abnormal . [facility] HospitalOenuzcoTFKPOXPGZK4482-48-52 18:46:00 Test Item Value Reference Range Interpretation Comments Basophils # (test code 0.1 See_Comment [Aut omated message] The = Basophils #) system which generated this result tra nsmitted reference range : <=0.2. The reference r mitra was not used to int erpret this result as normal/abnormal . [facility] HospitalLizcfboCUXNXPMJUL9613-62-06 18:46:00 Test Item Value Reference Range Interpretation Comments PT (test code = PT) 11.2 s 12.0-14.7 [facility] HospitalFtwabsiZSSYATMALT5104-44-21 18:46:00 Test Item Value Reference Range Interpretation Comments INR (test code = INR) 0.82 0.85-1.17 [facility] HospitalWazuqnnCAIJSHTELY2854-74-29 18:46:00 Test Item Value Reference Range Interpretation Comments PTT (test code = PTT) 28.6 s 22.9-35.8 [facility] HospitalTggvxkqJKJLLZPNEU1778-73-06 18:46:00 Test Item Value Reference Range Interpretation Comments MPV (test code = MPV) 8.1 7.4-10.4 [facility] HospitalBbqufdlMJOBWMXXDE2879-18-62 18:46:00 Test Item Value Reference Range Interpretation Comments Platelet (test code = Platelet) 301 133-450 [facility]JgkleypMYIHZRACDF3286-65-37 18:46:00 Test Item Value Reference Range Interpretation Comments RDW (test code = RDW) 14.5 11.5-14.5 [facility] HospitalGwlksbpTCJJHYHVNK3719-45-07 18:46:00 Test Item Value Reference Range Interpretation Comments RBC (test code = RBC) 4.84 4.70-6.10 [facility] HospitalFhkhdmfHUCFQYDMHW7412-47-38 18:46:00 Test Item Value Reference Range Interpretation Comments Hgb (test code = Hgb) 14.4 14.0-18.0 [facility] HospitalVuzyxrcTWIBGWBOEL1839-10-16 18:46:00 Test Item Value Reference Range Interpretation Comments WBC (test code = WBC) 5.2 3.7-10.4 [facility] HospitalNutppalUYCICSYGCW8560-42-51 18:46:00 Test Item Value Reference Range Interpretation Comments MCH (test code = MCH) 29.8 pg 27.0-31.0 [facility] HospitalWusqjiyHHRSLCHOPN9568-95-03 18:46:00 Test Item Value Reference Range Interpretation Comments MCV (test code = MCV) 92.0 80.0-94.0 [facility] HospitalNwiulblUWFPSWKIMX5581-97-31 18:46:00 Test Item Value Reference Range Interpretation Comments Hct (test code = Hct) 44.5 42.0-54.0 [facility] HospitalRukhxtmEZQWYNSJJF9075-32-42 18:46:00 Test Item Value Reference Range Interpretation Comments MCHC (test code = MCHC) 32.4 32.0-36.0 [facility]YlwrpzgFHIZJRXFLW2115-30-32 18:46:00 Test Item Value Reference Range Interpretation Comments [place]-Hep C Ab (test Negative *NA*(07/22/14 code = [place]-Hep C 1:46 PM) Ab) [facility] AND [id number] 18:46:00 Test Item Value Reference Range Interpretation Comments UA Urobilinogen (test code = UA <=1.0 mg/dL 0.1-1.0 Urobilinogen) [facility] [id number] 18:46:00 Test Item Value Reference Range Interpretation Comments UA Sq Epi (test code = UA Sq Epi) None Seen [facility] AND [id number] 18:46:00 Test Item Value Reference Range Interpretation Comments UA Leuk Est (test Negative (07/22/14 1:46 code = UA Leuk Est) PM) [facility] AND [id number] 18:46:00 Test Item Value Reference Range Interpretation Comments UA Nitrite (test code Negative (07/22/14 1:46 = UA Nitrite) PM) [facility] AND [id number] 18:46:00 Test Item Value Reference Range Interpretation Comments UA Blood (test code = Negative (07/22/14 1:46 UA Blood) PM) [facility] AND [id number] 18:46:00 Test Item Value Reference Range Interpretation Comments UA Ketones (test code = UA Negative mg/dL Ketones) [facility] AND [id number] 18:46:00 Test Item Value Reference Range Interpretation Comments UA Bili (test code = Negative *NA*(07/22/14 UA Bili) 1:46 PM) [facility] AND [id number] 18:46:00 Test Item Value Reference Range Interpretation Comments UA Bacteria (test code = UA Occasional /HPF Bacteria) [facility] AND [id number] 18:46:00 Test Item Value Reference Range Interpretation Comments UA RBC (test code = no gt See_Comment [Automa elizabeth message] The UA RBC) system which ge nerated this result transmit elizabeth reference range : <=2. The reference range was not used to interpr et this result as lukas l/abnormal. [facility] AND [id number] 18:46:00 Test Item Value Reference Range Interpretation Comments UA WBC (test code = 1 See_Comment [Automa elizabeth message] The UA WBC) system which ge nerated this result transmit elizabeth reference range : <=5. The reference range was not used to interpr et this result as lukas l/abnormal. [facility] AND [id number] 18:46:00 Test Item Value Reference Range Interpretation Comments UA Glucose (test code = UA Glucose) 30 mg/dL [facility] AND [id number] 18:46:00 Test Item Value Reference Range Interpretation Comments UA Protein (test code = UA Negative mg/dL Protein) [facility] AND [id number] 18:46:00 Test Item Value Reference Range Interpretation Comments UA pH (test code = UA pH) 6.5 5.0-8.0 [facility] [id number] 18:46:00 Test Item Value Reference Range Interpretation Comments UA Turbidity (test code = Clear (07/22/14 1:46 UA Turbidity) PM) [facility] [id number] 18:46:00 Test Item Value Reference Range Interpretation Comments UA Spec Grav (test code = UA Spec Grav) 1.010 [facility] AND [id number] 18:46:00 Test Item Value Reference Range Interpretation Comments UA Color (test code = Light Yellow UA Color) *NA*(07/22/14 1:46 PM) [facility]annCHE[facility] [id number] 18:46:00 Test Item Value Reference Range Interpretation Comments Magnesium Lvl (test code = Magnesium 1.8 1.8-2.4 Lvl) [facility]JdgurvwJIXXHYTBIQRC8851-84-75 18:46:00 Test Item Value Reference Range Interpretation Comments AGAP (test code = AGAP) 13.2 10.0-20.0 [facility]QwxomegOIPEWCTYPBKF3098-97-67 18:46:00 Test Item Value Reference Range Interpretation Comments B/C Ratio (test code = B/C Ratio) 18 6-25 [facility]JlyjqfdZZUFMSKZSZDH2177-75-06 18:46:00 Test Item Value Reference Range Interpretation Comments A/G Ratio (test code = A/G Ratio) 1.1 0.7-1.6 [facility] MichiganLpcuivnNDERPQXSZQCF4399-03-26 18:46:00 Test Item Value Reference Range Interpretation Comments Globulin (test code = Globulin) 3.3 2.0-4.0 [facility] HospitalMmrwxofEGWUNXLOVMIG5486-04-63 18:46:00 Test Item Value Reference Range Interpretation Comments eGFR (test code = eGFR) 99 [facility] MichiganTfdxxinUMEXBLONYOOG5246-68-34 18:46:00 Test Item Value Reference Range Interpretation Comments Calcium Lvl (test code = Calcium Lvl) 9.0 8.5-10.5 [facility] HospitalEyoxegyYUBVYPIYRUUF9035-19-45 18:46:00 Test Item Value Reference Range Interpretation Comments Chloride Lvl (test code = Chloride Lvl) 106 95-109 [facility] MichiganHootfmaPIQPCXOGXWGA2131-70-01 18:46:00 Test Item Value Reference Range Interpretation Comments Creatinine Lvl (test code = Creatinine 0.9 0.5-1.4 Lvl) [facility] MichiganCuorbwaORPZSZCULVCE2887-21-13 18:46:00 Test Item Value Reference Range Interpretation Comments Potassium Lvl (test code = Potassium 4.2 3.5-5.1 Lvl) [facility]EzmnzglHDNJDQAWVPQX0658-34-13 18:46:00 Test Item Value Reference Range Interpretation Comments Sodium Lvl (test code = Sodium Lvl) 139 135-145 [facility]YwwitltEMWZHLPHAOST8905-77-11 18:46:00 Test Item Value Reference Range Interpretation Comments CO2 (test code = CO2) 24 24-32 [facility] MichiganAyzbsfzSLHVPALGVBET4402-90-06 18:46:00 Test Item Value Reference Range Interpretation Comments BUN (test code = BUN) 16 7-22 [facility]AuwjmdvEACCVCFIITAV8288-55-22 18:46:00 Test Item Value Reference Range Interpretation Comments Glucose Lvl (test code = Glucose Lvl) 141 70-99 [facility] MichiganFqsiymyQPWQFVYCDZXI3887-37-49 18:46:00 Test Item Value Reference Range Interpretation Comments Albumin Lvl (test code = Albumin Lvl) 3.6 3.5-5.0 [facility]TehbtbsUYOXRTIWIPHH4312-74-32 18:46:00 Test Item Value Reference Range Interpretation Comments Alk Phos (test code = Alk Phos) 65 39-136 [facility] MichiganKyjsluvQPEPISEZNLOV2305-30-15 18:46:00 Test Item Value Reference Range Interpretation Comments Bili Total (test code = Bili Total) 0.3 0.2-1.3 [facility] MichiganCfclnsfVEAJQJQPWAJP8260-90-37 18:46:00 Test Item Value Reference Range Interpretation Comments ALT (test code = ALT) 100 See_Comment [Auto mated message] The system which ge nerated this result transmit elizabeth reference range : <=65. The reference range was not used to interpr et this result as lukas l/abnormal. [facility]ImdjwvwSMTPJFQQYRKD2871-14-14 18:46:00 Test Item Value Reference Range Interpretation Comments AST (test code = AST) 53 See_Comment [Auto mated message] The system which ge nerated this result transmit elizabeth reference range : <=37. The reference range was not used to interpr et this result as lukas l/abnormal. [facility] MichiganEhgikpaDPHRZTPFOISZ1877-17-07 18:46:00 Test Item Value Reference Range Interpretation Comments Total Protein (test code = Total 6.9 6.4-8.4 Protein) [facility] HospitalRhocoxcCGCNFUFGVM0272-52-15 18:46:00 Test Item Value Reference Range Interpretation Comments Eosinophils (test code = 4.2 See_Comment [A utomated message] The Eosinophils) system which ge nerated this result tra nsmitted reference range : <=4.0. The reference r mitra was not used to int erpret this result as normal/abnormal . [facility] HospitalEohvirvWOBZXQBRRC0122-59-49 18:46:00 Test Item Value Reference Range Interpretation Comments Segs (test code = Segs) 56.4 45.0-75.0 [facility] HospitalIwtgeeqVTOUSRNQSM3645-39-94 18:46:00 Test Item Value Reference Range Interpretation Comments Monocytes (test code = Monocytes) 10.3 2.0-12.0 [facility] HospitalQfhhdmsFSNRRTQTWA5287-85-33 18:46:00 Test Item Value Reference Range Interpretation Comments Lymphocytes (test code = Lymphocytes) 28.0 20.0-40.0 [facility] HospitalRnjcqdnTQDKAMOXZF1411-33-03 18:46:00 Test Item Value Reference Range Interpretation Comments Monocytes # (test code 0.5 See_Comment [Aut omated message] The = Monocytes #) system which generated this result tra nsmitted reference range : <=0.8. The reference r mitra was not used to int erpret this result as normal/abnormal . [facility] HospitalDocxbdsOQHGUIYHMI8850-63-46 18:46:00 Test Item Value Reference Range Interpretation Comments Basophils (test code = 1.1 See_Comment [Aut omated message] The Basophils) system which ge nerated this result tra nsmitted reference range : <=1.0. The reference r mitra was not used to int erpret this result as normal/abnormal . [facility] HospitalXgvrbuiENFVZDKRRK6803-10-88 18:46:00 Test Item Value Reference Range Interpretation Comments Lymphocytes # (test code = Lymphocytes 1.5 1.0-5.5 #) [facility] HospitalQiwrfrxFHGUPAHMQS4846-52-60 18:46:00 Test Item Value Reference Range Interpretation Comments Segs-Bands # (test code = Segs-Bands #) 2.9 1.5-8.1 [facility] HospitalAgemkfzUDMDBPSNSF3019-93-96 18:46:00 Test Item Value Reference Range Interpretation Comments Eosinophils # (test code 0.2 See_Comment [A utomated message] The = Eosinophils #) system whic h generated this result tra nsmitted reference range : <=0.5. The reference r mitra was not used to int erpret this result as normal/abnormal . [facility] HospitalVhypgcnKJFOBEMAQE2746-05-14 18:46:00 Test Item Value Reference Range Interpretation Comments Basophils # (test code 0.1 See_Comment [Aut omated message] The = Basophils #) system which generated this result tra nsmitted reference range : <=0.2. The reference r mitra was not used to int erpret this result as normal/abnormal . [facility] HospitalZlwpjknNUVULORYJC8690-55-41 18:46:00 Test Item Value Reference Range Interpretation Comments PT (test code = PT) 11.2 s 12.0-14.7 [facility] HospitalIytmcifXCBQDUXBKR3528-02-89 18:46:00 Test Item Value Reference Range Interpretation Comments INR (test code = INR) 0.82 0.85-1.17 [facility] HospitalRlyizfaUIXPTYNCQC1481-01-62 18:46:00 Test Item Value Reference Range Interpretation Comments PTT (test code = PTT) 28.6 s 22.9-35.8 [facility] HospitalYfaumuyEMIJPLILVD3565-00-85 18:46:00 Test Item Value Reference Range Interpretation Comments MPV (test code = MPV) 8.1 7.4-10.4 [facility] HospitalJrkdoyxCZTCGZEHWE8066-93-98 18:46:00 Test Item Value Reference Range Interpretation Comments Platelet (test code = Platelet) 301 133-450 [facility] HospitalBiackswCOFVFXEODV1790-44-14 18:46:00 Test Item Value Reference Range Interpretation Comments RDW (test code = RDW) 14.5 11.5-14.5 [facility] HospitalTbxmocmAKIKPBGIOQ3534-87-97 18:46:00 Test Item Value Reference Range Interpretation Comments RBC (test code = RBC) 4.84 4.70-6.10 [facility] HospitalHnrajbcAQYEEEQVVD1479-99-41 18:46:00 Test Item Value Reference Range Interpretation Comments Hgb (test code = Hgb) 14.4 14.0-18.0 [facility] HospitalRsoviqaPJBNNOQNLU8939-51-15 18:46:00 Test Item Value Reference Range Interpretation Comments WBC (test code = WBC) 5.2 3.7-10.4 [facility] InbqhcqKFDLFXEMTY3022-49-48 18:46:00 Test Item Value Reference Range Interpretation Comments MCH (test code = MCH) 29.8 pg 27.0-31.0 [facility] PrvxwtwXWDNWHGPET8846-23-73 18:46:00 Test Item Value Reference Range Interpretation Comments MCV (test code = MCV) 92.0 80.0-94.0 [facility] TsbymvfOWDYRENCKK9782-68-69 18:46:00 Test Item Value Reference Range Interpretation Comments Hct (test code = Hct) 44.5 42.0-54.0 [facility] UxfxvgaAAPHJOMDKV5325-00-26 18:46:00 Test Item Value Reference Range Interpretation Comments MCHC (test code = MCHC) 32.4 32.0-36.0 [facility] LancasterUdbieggMSQERLHQAN6262-02-60 18:46:00 Test Item Value Reference Range Interpretation Comments [place]-Hep C Ab (test Negative *NA*(07/22/14 code = [place]-Hep C 1:46 PM) Ab) [facility] AND [id number] 18:46:00 Test Item Value Reference Range Interpretation Comments UA Urobilinogen (test code = UA <=1.0 mg/dL 0.1-1.0 Urobilinogen) [facility] AND [id number] 18:46:00 Test Item Value Reference Range Interpretation Comments UA Sq Epi (test code = UA Sq Epi) None Seen [facility] AND [id number] 18:46:00 Test Item Value Reference Range Interpretation Comments UA Leuk Est (test Negative (07/22/14 1:46 code = UA Leuk Est) PM) [facility] AND [id number] 18:46:00 Test Item Value Reference Range Interpretation Comments UA Nitrite (test code Negative (07/22/14 1:46 = UA Nitrite) PM) [facility] AND [id number] 18:46:00 Test Item Value Reference Range Interpretation Comments UA Blood (test code = Negative (07/22/14 1:46 UA Blood) PM) [facility] AND [id number] 18:46:00 Test Item Value Reference Range Interpretation Comments UA Ketones (test code = UA Negative mg/dL Ketones) [facility] AND [id number] 18:46:00 Test Item Value Reference Range Interpretation Comments UA Bili (test code = Negative *NA*(07/22/14 UA Bili) 1:46 PM) [facility] AND [id number] 18:46:00 Test Item Value Reference Range Interpretation Comments UA Bacteria (test code = UA Occasional /HPF Bacteria) [facility] AND [id number] 18:46:00 Test Item Value Reference Range Interpretation Comments UA RBC (test code = no gt See_Comment [Automa elizabeth message] The UA RBC) system which ge nerated this result transmit elizabeth reference range : <=2. The reference range was not used to interpr et this result as lukas l/abnormal. [facility] AND [id number] 18:46:00 Test Item Value Reference Range Interpretation Comments UA WBC (test code = 1 See_Comment [Automa elizabeth message] The UA WBC) system which ge nerated this result transmit elizabeth reference range : <=5. The reference range was not used to interpr et this result as lukas l/abnormal. [facility] AND [id number] 18:46:00 Test Item Value Reference Range Interpretation Comments UA Glucose (test code = UA Glucose) 30 mg/dL [facility] AND [id number] 18:46:00 Test Item Value Reference Range Interpretation Comments UA Protein (test code = UA Negative mg/dL Protein) [facility] AND [id number] 18:46:00 Test Item Value Reference Range Interpretation Comments UA pH (test code = UA pH) 6.5 5.0-8.0 [facility] AND [id number] 18:46:00 Test Item Value Reference Range Interpretation Comments UA Turbidity (test code = Clear (07/22/14 1:46 UA Turbidity) PM) [facility] AND [id number] 18:46:00 Test Item Value Reference Range Interpretation Comments UA Spec Grav (test code = UA Spec Grav) 1.010 [facility] AND [id number] 18:46:00 Test Item Value Reference Range Interpretation Comments UA Color (test code = Light Yellow UA Color) *NA*(07/22/14 1:46 PM) [facility]2015-06-09 18:46:00 Test Item Value Reference Range Interpretation Comments Magnesium Lvl (test code = Magnesium 1.8 1.8-2.4 Lvl) [facility]HntptufAUQLBZVXLRAJ2880-23-58 18:46:00 Test Item Value Reference Range Interpretation Comments AGAP (test code = AGAP) 13.2 10.0-20.0 [facility]GejslovKUTCOKJXJNEO8520-47-84 18:46:00 Test Item Value Reference Range Interpretation Comments B/C Ratio (test code = B/C Ratio) 18 6-25 [facility]BeamedmMFMDPDSUEEHK1639-05-11 18:46:00 Test Item Value Reference Range Interpretation Comments A/G Ratio (test code = A/G Ratio) 1.1 0.7-1.6 [facility]OqhjkygZDATJGQWCOSW0488-11-10 18:46:00 Test Item Value Reference Range Interpretation Comments Globulin (test code = Globulin) 3.3 2.0-4.0 [facility]KjpeyriWFTJNEXVIIJP2902-14-08 18:46:00 Test Item Value Reference Range Interpretation Comments eGFR (test code = eGFR) 99 [facility]RzlfptiJEBHSDZGVDHG9417-87-22 18:46:00 Test Item Value Reference Range Interpretation Comments Calcium Lvl (test code = Calcium Lvl) 9.0 8.5-10.5 [facility]JpnsosqJPNDJBZDGAXB2518-78-86 18:46:00 Test Item Value Reference Range Interpretation Comments Chloride Lvl (test code = Chloride Lvl) 106 95-109 [facility] MichiganAujrdltPSKLMLKVRXXZ4956-24-50 18:46:00 Test Item Value Reference Range Interpretation Comments Creatinine Lvl (test code = Creatinine 0.9 0.5-1.4 Lvl) [facility] MichiganSkurfnyCPARJHORVWOT7654-10-74 18:46:00 Test Item Value Reference Range Interpretation Comments Potassium Lvl (test code = Potassium 4.2 3.5-5.1 Lvl) [facility]NaakmwkSLBCZGKEINXI0885-37-08 18:46:00 Test Item Value Reference Range Interpretation Comments Sodium Lvl (test code = Sodium Lvl) 139 135-145 [facility]DboyrhaINQVYMXFKQTL3594-99-53 18:46:00 Test Item Value Reference Range Interpretation Comments CO2 (test code = CO2) 24 24-32 [facility]PzlrvtfSTOQKYNWYBIF0344-71-57 18:46:00 Test Item Value Reference Range Interpretation Comments BUN (test code = BUN) 16 7-22 [facility]IbnkyhrPRDLODBIGEIE6116-70-64 18:46:00 Test Item Value Reference Range Interpretation Comments Glucose Lvl (test code = Glucose Lvl) 141 70-99 [facility] MichiganZizpunyDMBFNEBNBMKA4594-40-85 18:46:00 Test Item Value Reference Range Interpretation Comments Albumin Lvl (test code = Albumin Lvl) 3.6 3.5-5.0 [facility]KiulhovTPEUXGFHENRN8447-98-51 18:46:00 Test Item Value Reference Range Interpretation Comments Alk Phos (test code = Alk Phos) 65 39-136 [facility]YniqpoxXBJKEQLOYWTP5762-36-89 18:46:00 Test Item Value Reference Range Interpretation Comments Bili Total (test code = Bili Total) 0.3 0.2-1.3 [facility] MichiganFdgurrxODTDATFABXTG3189-38-59 18:46:00 Test Item Value Reference Range Interpretation Comments ALT (test code = ALT) 100 See_Comment [Auto mated message] The system which ge nerated this result transmit elizabeth reference range : <=65. The reference range was not used to interpr et this result as lukas l/abnormal. [facility]PwopmmiUXXGBSSVJAXU7055-37-88 18:46:00 Test Item Value Reference Range Interpretation Comments AST (test code = AST) 53 See_Comment [Auto mated message] The system which ge nerated this result transmit elizabeth reference range : <=37. The reference range was not used to interpr et this result as lukas l/abnormal. [facility]VhspatwLFWCPEFMEWWO1384-34-24 18:46:00 Test Item Value Reference Range Interpretation Comments Total Protein (test code = Total 6.9 6.4-8.4 Protein) [facility]TkqytvjWQKWQVEATX5172-22-23 18:46:00 Test Item Value Reference Range Interpretation Comments Eosinophils (test code = 4.2 See_Comment [A utomated message] The Eosinophils) system which ge nerated this result tra nsmitted reference range : <=4.0. The reference r mitra was not used to int erpret this result as normal/abnormal . [facility] HospitalUzaralfMZLLZFYWRD8476-33-00 18:46:00 Test Item Value Reference Range Interpretation Comments Segs (test code = Segs) 56.4 45.0-75.0 [facility] HospitalSbpfuswULZEVPSNWQ6445-63-78 18:46:00 Test Item Value Reference Range Interpretation Comments Monocytes (test code = Monocytes) 10.3 2.0-12.0 [facility] HospitalUmgmuzmWJIXKDNVTJ8863-75-75 18:46:00 Test Item Value Reference Range Interpretation Comments Lymphocytes (test code = Lymphocytes) 28.0 20.0-40.0 [facility] HospitalVcacpqwBBIBNEVKVZ2413-85-55 18:46:00 Test Item Value Reference Range Interpretation Comments Monocytes # (test code 0.5 See_Comment [Aut omated message] The = Monocytes #) system which generated this result tra nsmitted reference range : <=0.8. The reference r mtira was not used to int erpret this result as normal/abnormal . [facility] HospitalKsdjqtkOSYJSXRMNI1645-71-06 18:46:00 Test Item Value Reference Range Interpretation Comments Basophils (test code = 1.1 See_Comment [Aut omated message] The Basophils) system which ge nerated this result tra nsmitted reference range : <=1.0. The reference r mitra was not used to int erpret this result as normal/abnormal . [facility] HospitalUewzlseXYCMIROJXU2030-83-33 18:46:00 Test Item Value Reference Range Interpretation Comments Lymphocytes # (test code = Lymphocytes 1.5 1.0-5.5 #) [facility] HospitalUukxmiwXTUREGLIDN3462-98-00 18:46:00 Test Item Value Reference Range Interpretation Comments Segs-Bands # (test code = Segs-Bands #) 2.9 1.5-8.1 [facility] HospitalStmhlppQTRHZILDPL8669-10-80 18:46:00 Test Item Value Reference Range Interpretation Comments Eosinophils # (test code 0.2 See_Comment [A utomated message] The = Eosinophils #) system whic h generated this result tra nsmitted reference range : <=0.5. The reference r mitra was not used to int erpret this result as normal/abnormal . [facility] HospitalNkwxskiPQEEXQLLMK9808-87-23 18:46:00 Test Item Value Reference Range Interpretation Comments Basophils # (test code 0.1 See_Comment [Aut omated message] The = Basophils #) system which generated this result tra nsmitted reference range : <=0.2. The reference r mitra was not used to int erpret this result as normal/abnormal . [facility] HospitalZaxqbonNXSNZXHQXD0248-39-19 18:46:00 Test Item Value Reference Range Interpretation Comments PT (test code = PT) 11.2 s 12.0-14.7 [place] 641685-06-09 18:46:00 Test Item Value Reference Range Interpretation Comments INR (test code = INR) 0.82 0.85-1.17 [facility] HospitalVrdqqlyAVFCTPRUUA0291-55-87 18:46:00 Test Item Value Reference Range Interpretation Comments PTT (test code = PTT) 28.6 s 22.9-35.8 [facility] HospitalGmbrmftRPPFYTHHKS6937-76-79 18:46:00 Test Item Value Reference Range Interpretation Comments MPV (test code = MPV) 8.1 7.4-10.4 [place] 641685-06-09 18:46:00 Test Item Value Reference Range Interpretation Comments Platelet (test code = Platelet) 301 133-450 [facility] HospitalEespeiiHQNAUHPOHZ2479-95-45 18:46:00 Test Item Value Reference Range Interpretation Comments RDW (test code = RDW) 14.5 11.5-14.5 [facility] HospitalXwrbrxgLTRKMRRBEV0467-69-90 18:46:00 Test Item Value Reference Range Interpretation Comments RBC (test code = RBC) 4.84 4.70-6.10 [facility] HospitalKvylyijWVNEMBBNOD3426-51-52 18:46:00 Test Item Value Reference Range Interpretation Comments Hgb (test code = Hgb) 14.4 14.0-18.0 [facility] HospitalHqnjbywRNUYEWAKJM7449-77-85 18:46:00 Test Item Value Reference Range Interpretation Comments WBC (test code = WBC) 5.2 3.7-10.4 [facility] HospitalYhlacngVFUQJHRKYX6151-39-67 18:46:00 Test Item Value Reference Range Interpretation Comments MCH (test code = MCH) 29.8 pg 27.0-31.0 [facility] HospitalVkpxvktLVETAFRMYF0144-91-59 18:46:00 Test Item Value Reference Range Interpretation Comments MCV (test code = MCV) 92.0 80.0-94.0 [place] 641685-06-09 18:46:00 Test Item Value Reference Range Interpretation Comments Hct (test code = Hct) 44.5 42.0-54.0 [facility] LancasterGjulrhwBVOFKJKCKL2261-38-22 18:46:00 Test Item Value Reference Range Interpretation Comments MCHC (test code = MCHC) 32.4 32.0-36.0 [facility]AzajqckYZFBNDSLWU1325-34-93 18:46:00 Test Item Value Reference Range Interpretation Comments [place]-Hep C Ab (test Negative *NA*(07/22/14 code = [place]-Hep C 1:46 PM) Ab) [facility] AND [id number] 18:46:00 Test Item Value Reference Range Interpretation Comments UA Urobilinogen (test code = UA <=1.0 mg/dL 0.1-1.0 Urobilinogen) [facility] AND [id number] 18:46:00 Test Item Value Reference Range Interpretation Comments UA Sq Epi (test code = UA Sq Epi) None Seen [facility] AND [id number] 18:46:00 Test Item Value Reference Range Interpretation Comments UA Leuk Est (test Negative (07/22/14 1:46 code = UA Leuk Est) PM) [facility] AND [id number] 18:46:00 Test Item Value Reference Range Interpretation Comments UA Nitrite (test code Negative (07/22/14 1:46 = UA Nitrite) PM) [facility] AND [id number] 18:46:00 Test Item Value Reference Range Interpretation Comments UA Blood (test code = Negative (07/22/14 1:46 UA Blood) PM) [facility] AND [id number] 18:46:00 Test Item Value Reference Range Interpretation Comments UA Ketones (test code = UA Negative mg/dL Ketones) [facility] AND [id number] 18:46:00 Test Item Value Reference Range Interpretation Comments UA Bili (test code = Negative *NA*(07/22/14 UA Bili) 1:46 PM) [facility] AND [id number] 18:46:00 Test Item Value Reference Range Interpretation Comments UA Bacteria (test code = UA Occasional /HPF Bacteria) [facility] AND [id number] 18:46:00 Test Item Value Reference Range Interpretation Comments UA RBC (test code = no gt See_Comment [Automa elizabeth message] The UA RBC) system which ge nerated this result transmit elizabeth reference range : <=2. The reference range was not used to interpr et this result as lukas l/abnormal. [facility] AND [id number] 18:46:00 Test Item Value Reference Range Interpretation Comments UA WBC (test code = 1 See_Comment [Automa elizabeth message] The UA WBC) system which ge nerated this result transmit elizabeth reference range : <=5. The reference range was not used to interpr et this result as lukas l/abnormal. [facility] AND [id number] 18:46:00 Test Item Value Reference Range Interpretation Comments UA Glucose (test code = UA Glucose) 30 mg/dL [facility] AND [id number] 18:46:00 Test Item Value Reference Range Interpretation Comments UA Protein (test code = UA Negative mg/dL Protein) [facility] AND [id number] 18:46:00 Test Item Value Reference Range Interpretation Comments UA pH (test code = UA pH) 6.5 5.0-8.0 [facility] AND [id number] 18:46:00 Test Item Value Reference Range Interpretation Comments UA Turbidity (test code = Clear (07/22/14 1:46 UA Turbidity) PM) [facility] AND [id number] 18:46:00 Test Item Value Reference Range Interpretation Comments UA Spec Grav (test code = UA Spec Grav) 1.010 [facility] AND [id number] 18:46:00 Test Item Value Reference Range Interpretation Comments UA Color (test code = Light Yellow UA Color) *NA*(07/22/14 1:46 PM) [facility] [id number] 18:46:00 Test Item Value Reference Range Interpretation Comments Magnesium Lvl (test code = Magnesium 1.8 1.8-2.4 Lvl) [facility]zdqnsfZWLZOETTQEXU2484-95-22 18:46:00 Test Item Value Reference Range Interpretation Comments AGAP (test code = AGAP) 13.2 10.0-20.0 [facility]ClzqqpbTNRKSOICFGCQ2424-31-76 18:46:00 Test Item Value Reference Range Interpretation Comments B/C Ratio (test code = B/C Ratio) 18 6-25 [facility]QudfufzQLTQRFLHOZSR4833-96-01 18:46:00 Test Item Value Reference Range Interpretation Comments A/G Ratio (test code = A/G Ratio) 1.1 0.7-1.6 [facility]GwmhfoqBOBWHQPVLZMY3099-36-78 18:46:00 Test Item Value Reference Range Interpretation Comments Globulin (test code = Globulin) 3.3 2.0-4.0 [facility]YvycccnJHDNOFCGCNWB1233-54-86 18:46:00 Test Item Value Reference Range Interpretation Comments eGFR (test code = eGFR) 99 [facility]ZmzqwkoMJTVRBGKVMES9955-61-52 18:46:00 Test Item Value Reference Range Interpretation Comments Calcium Lvl (test code = Calcium Lvl) 9.0 8.5-10.5 [facility]XhyrmohJHZNTUROBKWO9746-77-53 18:46:00 Test Item Value Reference Range Interpretation Comments Chloride Lvl (test code = Chloride Lvl) 106 95-109 [facility]HpejkbmPVRJFITABNPP4279-02-79 18:46:00 Test Item Value Reference Range Interpretation Comments Creatinine Lvl (test code = Creatinine 0.9 0.5-1.4 Lvl) [facility]QejygjgTUSQOPEUDYQU6754-78-70 18:46:00 Test Item Value Reference Range Interpretation Comments Potassium Lvl (test code = Potassium 4.2 3.5-5.1 Lvl) [facility]HyroayvPQTQIGAXPRUM0396-81-02 18:46:00 Test Item Value Reference Range Interpretation Comments Sodium Lvl (test code = Sodium Lvl) 139 135-145 [facility]TmiqdzuLORTLPBKRMVC2064-26-39 18:46:00 Test Item Value Reference Range Interpretation Comments CO2 (test code = CO2) 24 24-32 [facility]OyvayxyYBRRFPGBOGYT4549-08-10 18:46:00 Test Item Value Reference Range Interpretation Comments BUN (test code = BUN) 16 7-22 [facility]MckcuibIBZXYKUXXRUY2636-83-53 18:46:00 Test Item Value Reference Range Interpretation Comments Glucose Lvl (test code = Glucose Lvl) 141 70-99 [facility] MichiganArmalklYXVZHCNSHIHL0422-99-21 18:46:00 Test Item Value Reference Range Interpretation Comments Albumin Lvl (test code = Albumin Lvl) 3.6 3.5-5.0 [facility]EoldcpsMFPQJLROIBOJ1810-98-96 18:46:00 Test Item Value Reference Range Interpretation Comments Alk Phos (test code = Alk Phos) 65 39-136 [facility] MichiganIapovhoVCWOLOPYZEZW1885-75-06 18:46:00 Test Item Value Reference Range Interpretation Comments Bili Total (test code = Bili Total) 0.3 0.2-1.3 [facility]OmvonwvHUOPUOEWZSTM3245-84-46 18:46:00 Test Item Value Reference Range Interpretation Comments ALT (test code = ALT) 100 See_Comment [Auto mated message] The system which ge nerated this result transmit elizabeth reference range : <=65. The reference range was not used to interpr et this result as lukas l/abnormal. [facility] MichiganCjglbupFNLVKOFPJTQU9820-99-73 18:46:00 Test Item Value Reference Range Interpretation Comments AST (test code = AST) 53 See_Comment [Auto mated message] The system which ge nerated this result transmit elizabeth reference range : <=37. The reference range was not used to interpr et this result as lukas l/abnormal. [facility] MichiganSkjpjgfIVFXMJZEMXIN2312-38-82 18:46:00 Test Item Value Reference Range Interpretation Comments Total Protein (test code = Total 6.9 6.4-8.4 Protein) [facility] HospitalSbwqqsbOZEZDUFRRM0008-11-12 18:46:00 Test Item Value Reference Range Interpretation Comments Eosinophils (test code = 4.2 See_Comment [A utomated message] The Eosinophils) system which ge nerated this result tra nsmitted reference range : <=4.0. The reference r mitra was not used to int erpret this result as normal/abnormal . [facility] HospitalPphgyfuFMFSKCIAZN7151-01-99 18:46:00 Test Item Value Reference Range Interpretation Comments Segs (test code = Segs) 56.4 45.0-75.0 [facility] HospitalLwuhgapPBGRFPATHO2135-93-19 18:46:00 Test Item Value Reference Range Interpretation Comments Monocytes (test code = Monocytes) 10.3 2.0-12.0 [facility] HospitalBebfewhXBOKAQVGRE1763-88-95 18:46:00 Test Item Value Reference Range Interpretation Comments Lymphocytes (test code = Lymphocytes) 28.0 20.0-40.0 [facility] HospitalGdijljxFRZCZWAPFS9034-19-30 18:46:00 Test Item Value Reference Range Interpretation Comments Monocytes # (test code 0.5 See_Comment [Aut omated message] The = Monocytes #) system which generated this result tra nsmitted reference range : <=0.8. The reference r mitra was not used to int erpret this result as normal/abnormal . [facility] HospitalPinprfkOTWKHBGKNO9160-54-44 18:46:00 Test Item Value Reference Range Interpretation Comments Basophils (test code = 1.1 See_Comment [Aut omated message] The Basophils) system which ge nerated this result tra nsmitted reference range : <=1.0. The reference r mitra was not used to int erpret this result as normal/abnormal . [facility] HospitalCmhtculVIDZERREGC3670-10-74 18:46:00 Test Item Value Reference Range Interpretation Comments Lymphocytes # (test code = Lymphocytes 1.5 1.0-5.5 #) [facility] HospitalTgrykvuAYCMJRVZZP0468-64-84 18:46:00 Test Item Value Reference Range Interpretation Comments Segs-Bands # (test code = Segs-Bands #) 2.9 1.5-8.1 [facility] HospitalUqpxmewDJRPKNJFYG2733-88-16 18:46:00 Test Item Value Reference Range Interpretation Comments Eosinophils # (test code 0.2 See_Comment [A utomated message] The = Eosinophils #) system whic h generated this result tra nsmitted reference range : <=0.5. The reference r mitra was not used to int erpret this result as normal/abnormal . [facility] HospitalBgumyjaWAPCKHXEAN5688-73-11 18:46:00 Test Item Value Reference Range Interpretation Comments Basophils # (test code 0.1 See_Comment [Aut omated message] The = Basophils #) system which generated this result tra nsmitted reference range : <=0.2. The reference r mitra was not used to int erpret this result as normal/abnormal . [facility] HospitalLtqzgymPBCZAUKCWT6798-19-36 18:46:00 Test Item Value Reference Range Interpretation Comments PT (test code = PT) 11.2 s 12.0-14.7 [facility] HospitalQzcrkhdAVYFJMFEQZ1499-96-25 18:46:00 Test Item Value Reference Range Interpretation Comments INR (test code = INR) 0.82 0.85-1.17 [facility] HospitalGqtmnoqWNVEAGYUHK9837-09-93 18:46:00 Test Item Value Reference Range Interpretation Comments PTT (test code = PTT) 28.6 s 22.9-35.8 [facility] LancasterXulenasCBTSVCMNKR8857-57-57 18:46:00 Test Item Value Reference Range Interpretation Comments MPV (test code = MPV) 8.1 7.4-10.4 [facility]DkaxqbuUYLHEYXKDY7906-12-73 18:46:00 Test Item Value Reference Range Interpretation Comments Platelet (test code = Platelet) 301 133-450 [facility] HospitalPeybtzaANJSDEEEEO3768-22-11 18:46:00 Test Item Value Reference Range Interpretation Comments RDW (test code = RDW) 14.5 11.5-14.5 [facility] HospitalBcsaqltTRFREANRQK2903-14-99 18:46:00 Test Item Value Reference Range Interpretation Comments RBC (test code = RBC) 4.84 4.70-6.10 [facility] HospitalQaavshtIQXVGEBEUO9028-48-69 18:46:00 Test Item Value Reference Range Interpretation Comments Hgb (test code = Hgb) 14.4 14.0-18.0 [facility] HospitalJnnpkvgDZHRAJPIUI3712-52-28 18:46:00 Test Item Value Reference Range Interpretation Comments WBC (test code = WBC) 5.2 3.7-10.4 [facility] LancasterDpmagjkQVKWXQYXEZ9681-53-28 18:46:00 Test Item Value Reference Range Interpretation Comments MCH (test code = MCH) 29.8 pg 27.0-31.0 [facility] HospitalXevmgfcNIKSQGYIVS8078-01-18 18:46:00 Test Item Value Reference Range Interpretation Comments MCV (test code = MCV) 92.0 80.0-94.0 [facility] LancasterOpafzozNVKBSQTPFU4346-17-93 18:46:00 Test Item Value Reference Range Interpretation Comments Hct (test code = Hct) 44.5 42.0-54.0 [facility] LancasterRbdqpdpNWIKOMGJRT2448-52-39 18:46:00 Test Item Value Reference Range Interpretation Comments MCHC (test code = MCHC) 32.4 32.0-36.0 [facility] LancasterImvacwcVZITVPSUFF7548-66-08 18:46:00 Test Item Value Reference Range Interpretation Comments [place]-Hep C Ab (test Negative *NA*(07/22/14 code = [place]-Hep C 1:46 PM) Ab) [facility] AND [id number] 18:46:00 Test Item Value Reference Range Interpretation Comments UA Urobilinogen (test code = UA <=1.0 mg/dL 0.1-1.0 Urobilinogen) [facility] AND [id number] 18:46:00 Test Item Value Reference Range Interpretation Comments UA Sq Epi (test code = UA Sq Epi) None Seen [facility] AND [id number] 18:46:00 Test Item Value Reference Range Interpretation Comments UA Leuk Est (test Negative (07/22/14 1:46 code = UA Leuk Est) PM) [facility] AND [id number] 18:46:00 Test Item Value Reference Range Interpretation Comments UA Nitrite (test code Negative (07/22/14 1:46 = UA Nitrite) PM) [facility] AND [id number] 18:46:00 Test Item Value Reference Range Interpretation Comments UA Blood (test code = Negative (07/22/14 1:46 UA Blood) PM) [facility] AND [id number] 18:46:00 Test Item Value Reference Range Interpretation Comments UA Ketones (test code = UA Negative mg/dL Ketones) [facility] AND [id number] 18:46:00 Test Item Value Reference Range Interpretation Comments UA Bili (test code = Negative *NA*(07/22/14 UA Bili) 1:46 PM) [facility] AND [id number] 18:46:00 Test Item Value Reference Range Interpretation Comments UA Bacteria (test code = UA Occasional /HPF Bacteria) [facility] AND [id number] 18:46:00 Test Item Value Reference Range Interpretation Comments UA RBC (test code = no gt See_Comment [Automa elizabeth message] The UA RBC) system which ge nerated this result transmit elizabeth reference range : <=2. The reference range was not used to interpr et this result as lukas l/abnormal. [facility] AND [id number] 18:46:00 Test Item Value Reference Range Interpretation Comments UA WBC (test code = 1 See_Comment [Automa elizabeth message] The UA WBC) system which ge nerated this result transmit elizabeth reference range : <=5. The reference range was not used to interpr et this result as lukas l/abnormal. [facility] AND [id number] 18:46:00 Test Item Value Reference Range Interpretation Comments UA Glucose (test code = UA Glucose) 30 mg/dL [facility] AND [id number] 18:46:00 Test Item Value Reference Range Interpretation Comments UA Protein (test code = UA Negative mg/dL Protein) [facility] AND [id number] 18:46:00 Test Item Value Reference Range Interpretation Comments UA pH (test code = UA pH) 6.5 5.0-8.0 [facility] AND [id number] 18:46:00 Test Item Value Reference Range Interpretation Comments UA Turbidity (test code = Clear (07/22/14 1:46 UA Turbidity) PM) [facility] AND [id number] 18:46:00 Test Item Value Reference Range Interpretation Comments UA Spec Grav (test code = UA Spec Grav) 1.010 [facility] AND [id number] 18:46:00 Test Item Value Reference Range Interpretation Comments UA Color (test code = Light Yellow UA Color) *NA*(07/22/14 1:46 PM) [facility] [id number] 18:46:00 Test Item Value Reference Range Interpretation Comments Magnesium Lvl (test code = Magnesium 1.8 1.8-2.4 Lvl) [facility]OrmiyugWFWUVLKNXCGX0284-62-77 18:46:00 Test Item Value Reference Range Interpretation Comments AGAP (test code = AGAP) 13.2 10.0-20.0 [facility]EfcuqmaWJRUOBNQLHQJ0714-70-55 18:46:00 Test Item Value Reference Range Interpretation Comments B/C Ratio (test code = B/C Ratio) 18 6-25 [facility] MichiganGrdzrnnLHSHOUMFPVMZ4924-18-95 18:46:00 Test Item Value Reference Range Interpretation Comments A/G Ratio (test code = A/G Ratio) 1.1 0.7-1.6 [facility]BdsfbqkYAUKUSBKQYDP6094-40-67 18:46:00 Test Item Value Reference Range Interpretation Comments Globulin (test code = Globulin) 3.3 2.0-4.0 [facility] MichiganArbuxbbTVQKSKLHYHEI4512-19-34 18:46:00 Test Item Value Reference Range Interpretation Comments eGFR (test code = eGFR) 99 [facility] MichiganDqyelckEBEQXMZAKMPK6349-41-42 18:46:00 Test Item Value Reference Range Interpretation Comments Calcium Lvl (test code = Calcium Lvl) 9.0 8.5-10.5 [facility] MichiganUxmspnhWCGOKNMIXOYG8525-93-36 18:46:00 Test Item Value Reference Range Interpretation Comments Chloride Lvl (test code = Chloride Lvl) 106 95-109 [facility]SosmdbrKAEIFMVNPOQH7336-07-60 18:46:00 Test Item Value Reference Range Interpretation Comments Creatinine Lvl (test code = Creatinine 0.9 0.5-1.4 Lvl) [facility]YrzyqqlEWUJLEFYYTRW1198-71-19 18:46:00 Test Item Value Reference Range Interpretation Comments Potassium Lvl (test code = Potassium 4.2 3.5-5.1 Lvl) [facility]EaydrqsKAMQKYLVZKPH6156-34-00 18:46:00 Test Item Value Reference Range Interpretation Comments Sodium Lvl (test code = Sodium Lvl) 139 135-145 [facility]AbdetwbPQRFBZSIEIXY5158-61-39 18:46:00 Test Item Value Reference Range Interpretation Comments CO2 (test code = CO2) 24 24-32 [facility]OosijvnJZHRRIAZRVCN1528-11-45 18:46:00 Test Item Value Reference Range Interpretation Comments BUN (test code = BUN) 16 7-22 [facility]GhzsjbvTILWMBUTCDVI4615-87-35 18:46:00 Test Item Value Reference Range Interpretation Comments Glucose Lvl (test code = Glucose Lvl) 141 70-99 [facility]MjlrixnEBILEEDNXBOA6309-11-40 18:46:00 Test Item Value Reference Range Interpretation Comments Albumin Lvl (test code = Albumin Lvl) 3.6 3.5-5.0 [facility]OaiocyhSCZLPJSAHUWS8300-06-42 18:46:00 Test Item Value Reference Range Interpretation Comments Alk Phos (test code = Alk Phos) 65 39-136 [facility]KunsaznMIDEVWNABQTD8418-28-74 18:46:00 Test Item Value Reference Range Interpretation Comments Bili Total (test code = Bili Total) 0.3 0.2-1.3 [facility]FgheavsZHAMIKVPCDXN6530-73-22 18:46:00 Test Item Value Reference Range Interpretation Comments ALT (test code = ALT) 100 See_Comment [Auto mated message] The system which ge nerated this result transmit elizabeth reference range : <=65. The reference range was not used to interpr et this result as lukas l/abnormal. [facility]GltnmnlMUSWYVCZYUAN5688-25-33 18:46:00 Test Item Value Reference Range Interpretation Comments AST (test code = AST) 53 See_Comment [Auto mated message] The system which ge nerated this result transmit elizabeth reference range : <=37. The reference range was not used to interpr et this result as lukas l/abnormal. [facility]AimecvtMSNZEOBHZOKU6457-54-75 18:46:00 Test Item Value Reference Range Interpretation Comments Total Protein (test code = Total 6.9 6.4-8.4 Protein) [facility]NmnuurwDBHRBJGFPL1366-55-41 18:46:00 Test Item Value Reference Range Interpretation Comments Eosinophils (test code = 4.2 See_Comment [A utomated message] The Eosinophils) system which ge nerated this result tra nsmitted reference range : <=4.0. The reference r mitra was not used to int erpret this result as normal/abnormal . [facility] HospitalBuazwnfJYNDYVZAIW5644-82-22 18:46:00 Test Item Value Reference Range Interpretation Comments Segs (test code = Segs) 56.4 45.0-75.0 [facility] HospitalPvsccklSZAOWABOZS0397-85-23 18:46:00 Test Item Value Reference Range Interpretation Comments Monocytes (test code = Monocytes) 10.3 2.0-12.0 [facility] HospitalCbahdqqOPKTJQGAGE2913-99-37 18:46:00 Test Item Value Reference Range Interpretation Comments Lymphocytes (test code = Lymphocytes) 28.0 20.0-40.0 [facility] HospitalFtmgfwhXQXQFIONHV8432-72-51 18:46:00 Test Item Value Reference Range Interpretation Comments Monocytes # (test code 0.5 See_Comment [Aut omated message] The = Monocytes #) system which generated this result tra nsmitted reference range : <=0.8. The reference r mitra was not used to int erpret this result as normal/abnormal . [facility] HospitalTebdnqiBYWJNBIEZZ7022-49-42 18:46:00 Test Item Value Reference Range Interpretation Comments Basophils (test code = 1.1 See_Comment [Aut omated message] The Basophils) system which ge nerated this result tra nsmitted reference range : <=1.0. The reference r mitra was not used to int erpret this result as normal/abnormal . [facility] HospitalGkobkbgEKXXRZZCDW4284-95-98 18:46:00 Test Item Value Reference Range Interpretation Comments Lymphocytes # (test code = Lymphocytes 1.5 1.0-5.5 #) [facility] HospitalVumnqldZAGTRZZZSA4659-57-57 18:46:00 Test Item Value Reference Range Interpretation Comments Segs-Bands # (test code = Segs-Bands #) 2.9 1.5-8.1 [facility] HospitalNvsttjyTAZJRIKATG5968-60-85 18:46:00 Test Item Value Reference Range Interpretation Comments Eosinophils # (test code 0.2 See_Comment [A utomated message] The = Eosinophils #) system whic h generated this result tra nsmitted reference range : <=0.5. The reference r mitra was not used to int erpret this result as normal/abnormal . [facility]2015-06-09 18:46:00 Test Item Value Reference Range Interpretation Comments Magnesium Lvl (test code = Magnesium 1.8 1.8-2.4 Lvl) [facility] HospitalZwummwwVKABUPQDFD1076-78-17 18:46:00 Test Item Value Reference Range Interpretation Comments Basophils # (test code 0.1 See_Comment [Aut omated message] The = Basophils #) system which generated this result tra nsmitted reference range : <=0.2. The reference r mitra was not used to int erpret this result as normal/abnormal . [facility]SzrggmvSAUUDUMORKLX1301-04-09 18:46:00 Test Item Value Reference Range Interpretation Comments AGAP (test code = AGAP) 13.2 10.0-20.0 [facility] HospitalXohfbdeSAQJEFBOCH8969-24-33 18:46:00 Test Item Value Reference Range Interpretation Comments PT (test code = PT) 11.2 s 12.0-14.7 [facility]IumnsgwEESJGKDWRWZP1641-92-82 18:46:00 Test Item Value Reference Range Interpretation Comments B/C Ratio (test code = B/C Ratio) 18 6-25 [facility] HospitalMdpildyIZHCTDENFX5845-90-91 18:46:00 Test Item Value Reference Range Interpretation Comments INR (test code = INR) 0.82 0.85-1.17 [facility]KtwivbpAOVBVDYBRTJB4660-31-97 18:46:00 Test Item Value Reference Range Interpretation Comments A/G Ratio (test code = A/G Ratio) 1.1 0.7-1.6 [facility] HospitalTukcauaZVNMAZWABS5000-87-38 18:46:00 Test Item Value Reference Range Interpretation Comments PTT (test code = PTT) 28.6 s 22.9-35.8 [facility] HospitalUpshvdkGGFRMKMEKL9750-06-99 18:46:00 Test Item Value Reference Range Interpretation Comments MPV (test code = MPV) 8.1 7.4-10.4 [facility]VywyqtbOBSQFHUMCQMX3002-55-76 18:46:00 Test Item Value Reference Range Interpretation Comments Globulin (test code = Globulin) 3.3 2.0-4.0 [facility] HospitalPkhpqfiBYVTQVGHDL5621-23-64 18:46:00 Test Item Value Reference Range Interpretation Comments Platelet (test code = Platelet) 301 133-450 [facility]PgxyogmELPYBTTMXNXY9381-49-69 18:46:00 Test Item Value Reference Range Interpretation Comments eGFR (test code = eGFR) 99 [facility] HospitalJijnsrcTPXKSVBEYM1545-97-18 18:46:00 Test Item Value Reference Range Interpretation Comments RDW (test code = RDW) 14.5 11.5-14.5 [facility]AlnjuekTPUHRKDLXFOE4033-94-24 18:46:00 Test Item Value Reference Range Interpretation Comments Calcium Lvl (test code = Calcium Lvl) 9.0 8.5-10.5 [facility] HospitalFejplyvVDIDHUFWBE0340-09-58 18:46:00 Test Item Value Reference Range Interpretation Comments RBC (test code = RBC) 4.84 4.70-6.10 [facility]XlkjrboFAYVMUYQHSSD9605-95-49 18:46:00 Test Item Value Reference Range Interpretation Comments Chloride Lvl (test code = Chloride Lvl) 106 95-109 [facility] HospitalHuhxevfPUJGJIJWJG9998-43-03 18:46:00 Test Item Value Reference Range Interpretation Comments Hgb (test code = Hgb) 14.4 14.0-18.0 [facility]NrgapqdEFOESPDDOQHP8642-51-22 18:46:00 Test Item Value Reference Range Interpretation Comments Creatinine Lvl (test code = Creatinine 0.9 0.5-1.4 Lvl) [facility] HospitalIehdjzfKZJBZWTUFD5147-56-72 18:46:00 Test Item Value Reference Range Interpretation Comments WBC (test code = WBC) 5.2 3.7-10.4 [facility] MichiganLyfeypuQBYXUMLGREBB4630-94-29 18:46:00 Test Item Value Reference Range Interpretation Comments Potassium Lvl (test code = Potassium 4.2 3.5-5.1 Lvl) [facility]zvenvqYVTQGLHXJP6235-06-40 18:46:00 Test Item Value Reference Range Interpretation Comments MCH (test code = MCH) 29.8 pg 27.0-31.0 [facility]ItsnwcsKSFLLBEGQSFO1769-31-40 18:46:00 Test Item Value Reference Range Interpretation Comments Sodium Lvl (test code = Sodium Lvl) 139 135-145 [facility] HospitalSfdbihpDPDGTUJJGO4339-83-30 18:46:00 Test Item Value Reference Range Interpretation Comments MCV (test code = MCV) 92.0 80.0-94.0 [facility]NgoqeavWWWPYCPVZHPV0966-02-89 18:46:00 Test Item Value Reference Range Interpretation Comments CO2 (test code = CO2) 24 24-32 [facility] HospitalIjuiutsWRAJLLPUEG8636-53-79 18:46:00 Test Item Value Reference Range Interpretation Comments Hct (test code = Hct) 44.5 42.0-54.0 [facility]IvnaklvVKEEGINIFALV5035-01-30 18:46:00 Test Item Value Reference Range Interpretation Comments BUN (test code = BUN) 16 7-22 [facility] HospitalDyvzoowJVLWHUNAOT1971-99-14 18:46:00 Test Item Value Reference Range Interpretation Comments MCHC (test code = MCHC) 32.4 32.0-36.0 [facility]ObqkqdzSRRENWOIXOBQ0240-01-07 18:46:00 Test Item Value Reference Range Interpretation Comments Glucose Lvl (test code = Glucose Lvl) 141 70-99 [facility] LancasterYzydvanZNEFYIDUHB9016-20-36 18:46:00 Test Item Value Reference Range Interpretation Comments [place]-Hep C Ab (test Negative *NA*(07/22/14 code = [place]-Hep C 1:46 PM) Ab) [facility]PtuacvhQSWHELOLKXXL8360-99-62 18:46:00 Test Item Value Reference Range Interpretation Comments Albumin Lvl (test code = Albumin Lvl) 3.6 3.5-5.0 [facility] AND NFZDB0575-75-64 18:46:00 Test Item Value Reference Range Interpretation Comments UA Urobilinogen (test code = UA <=1.0 mg/dL 0.1-1.0 Urobilinogen) [facility]TziyzisARZYDLAOUZNV4803-00-25 18:46:00 Test Item Value Reference Range Interpretation Comments Alk Phos (test code = Alk Phos) 65 39-136 [facility] AND CZQKP6241-04-64 18:46:00 Test Item Value Reference Range Interpretation Comments UA Sq Epi (test code = UA Sq Epi) None Seen [facility]AqfpcqeVLRYDPMCGCTC4624-35-40 18:46:00 Test Item Value Reference Range Interpretation Comments Bili Total (test code = Bili Total) 0.3 0.2-1.3 [facility] AND OIDXQ9091-33-38 18:46:00 Test Item Value Reference Range Interpretation Comments UA Leuk Est (test Negative (07/22/14 1:46 code = UA Leuk Est) PM) [facility]EbrvmywNHMJXGCXERXN9481-01-89 18:46:00 Test Item Value Reference Range Interpretation Comments ALT (test code = ALT) 100 See_Comment [Auto mated message] The system which ge nerated this result transmit elizabeth reference range : <=65. The reference range was not used to interpr et this result as lukas l/abnormal. [facility]2015-06-09 18:46:00 Test Item Value Reference Range Interpretation Comments UA Nitrite (test code Negative (07/22/14 1:46 = UA Nitrite) PM) [facility]LqqpqydOQOORLTQRUZE1378-30-82 18:46:00 Test Item Value Reference Range Interpretation Comments AST (test code = AST) 53 See_Comment [Auto mated message] The system which ge nerated this result transmit elizabeth reference range : <=37. The reference range was not used to interpr et this result as lukas l/abnormal. [facility]2015-06-09 18:46:00 Test Item Value Reference Range Interpretation Comments UA Blood (test code = Negative (07/22/14 1:46 UA Blood) PM) [facility]FfnmuhfLXNHXYTBXRXO3663-67-08 18:46:00 Test Item Value Reference Range Interpretation Comments Total Protein (test code = Total 6.9 6.4-8.4 Protein) [facility]2015-06-09 18:46:00 Test Item Value Reference Range Interpretation Comments UA Ketones (test code = UA Negative mg/dL Ketones) [facility] HospitalZulyjfhXHEGAUSFGO7058-81-15 18:46:00 Test Item Value Reference Range Interpretation Comments Eosinophils (test code = 4.2 See_Comment [A utomated message] The Eosinophils) system which ge nerated this result tra nsmitted reference range : <=4.0. The reference r mitra was not used to int erpret this result as normal/abnormal . [facility] AND HZXJG1528-43-50 18:46:00 Test Item Value Reference Range Interpretation Comments UA Bili (test code = Negative *NA*(07/22/14 UA Bili) 1:46 PM) [facility] HospitalNzbmkuoCGZWMCLKKF1651-30-28 18:46:00 Test Item Value Reference Range Interpretation Comments Segs (test code = Segs) 56.4 45.0-75.0 [facility] AND VHDDZ5415-97-35 18:46:00 Test Item Value Reference Range Interpretation Comments UA Bacteria (test code = UA Occasional /HPF Bacteria) [facility] HospitalIhogvdgWFJFPUSWVV7857-70-38 18:46:00 Test Item Value Reference Range Interpretation Comments Monocytes (test code = Monocytes) 10.3 2.0-12.0 [facility] AND OAZRY9213-01-89 18:46:00 Test Item Value Reference Range Interpretation Comments UA RBC (test code = no gt See_Comment [Automa elizabeth message] The UA RBC) system which ge nerated this result transmit elizabeth reference range : <=2. The reference range was not used to interpr et this result as lukas l/abnormal. [facility] HospitalUzxstraWJUOPGXWNP5261-01-35 18:46:00 Test Item Value Reference Range Interpretation Comments Lymphocytes (test code = Lymphocytes) 28.0 20.0-40.0 [facility]2015-06-09 18:46:00 Test Item Value Reference Range Interpretation Comments UA WBC (test code = 1 See_Comment [Automa elizabeth message] The UA WBC) system which ge nerated this result transmit elizabeth reference range : <=5. The reference range was not used to interpr et this result as lukas l/abnormal. [facility] HospitalMviyhyfTDODBPXYWP1690-01-12 18:46:00 Test Item Value Reference Range Interpretation Comments Monocytes # (test code 0.5 See_Comment [Aut omated message] The = Monocytes #) system which generated this result tra nsmitted reference range : <=0.8. The reference r mitra was not used to int erpret this result as normal/abnormal . [facility] AND HHUUT6801-21-47 18:46:00 Test Item Value Reference Range Interpretation Comments UA Glucose (test code = UA Glucose) 30 mg/dL [facility] AND [id number] 18:46:00 Test Item Value Reference Range Interpretation Comments UA Protein (test code = UA Negative mg/dL Protein) [facility] HospitalDokupysIGRMZHUEMV0396-93-60 18:46:00 Test Item Value Reference Range Interpretation Comments Basophils (test code = 1.1 See_Comment [Aut omated message] The Basophils) system which ge nerated this result tra nsmitted reference range : <=1.0. The reference r mitra was not used to int erpret this result as normal/abnormal . [facility] AND PUBHD9508-84-60 18:46:00 Test Item Value Reference Range Interpretation Comments UA pH (test code = UA pH) 6.5 5.0-8.0 [facility] HospitalAbmctjuMWLDGJPWKX1124-16-69 18:46:00 Test Item Value Reference Range Interpretation Comments Lymphocytes # (test code = Lymphocytes 1.5 1.0-5.5 #) [facility]2015-06-09 18:46:00 Test Item Value Reference Range Interpretation Comments UA Turbidity (test code = Clear (07/22/14 1:46 UA Turbidity) PM) [facility] HospitalMedfephQRQGBDEFRA4822-36-00 18:46:00 Test Item Value Reference Range Interpretation Comments Segs-Bands # (test code = Segs-Bands #) 2.9 1.5-8.1 [facility]2015-06-09 18:46:00 Test Item Value Reference Range Interpretation Comments UA Spec Grav (test code = UA Spec Grav) 1.010 [facility] HospitalElzjldiQILTATXKHP1238-61-31 18:46:00 Test Item Value Reference Range Interpretation Comments Eosinophils # (test code 0.2 See_Comment [A utomated message] The = Eosinophils #) system whic h generated this result tra nsmitted reference range : <=0.5. The reference r mitra was not used to int erpret this result as normal/abnormal . [facility]2015-06-09 18:46:00 Test Item Value Reference Range Interpretation Comments UA Color (test code = Light Yellow UA Color) *NA*(07/22/14 1:46 PM) [facility] HospitalKspfiiqSTLUBWXQUW3944-66-47 18:46:00 Test Item Value Reference Range Interpretation Comments Basophils # (test code 0.1 See_Comment [Aut omated message] The = Basophils #) system which generated this result tra nsmitted reference range : <=0.2. The reference r mitra was not used to int erpret this result as normal/abnormal . [facility]2015-06-09 18:46:00 Test Item Value Reference Range Interpretation Comments Magnesium Lvl (test code = Magnesium 1.8 1.8-2.4 Lvl) [facility] HospitalKnndlpfUUDDQESIYZ9165-98-82 18:46:00 Test Item Value Reference Range Interpretation Comments PT (test code = PT) 11.2 s 12.0-14.7 [facility]DsgoxndZQMIJVKFFQUK6990-54-16 18:46:00 Test Item Value Reference Range Interpretation Comments AGAP (test code = AGAP) 13.2 10.0-20.0 [facility] HospitalWlzlaksEMOEGNZVRS1536-62-90 18:46:00 Test Item Value Reference Range Interpretation Comments INR (test code = INR) 0.82 0.85-1.17 [facility]UsrxppjZBTNYYJDVKXK3160-04-87 18:46:00 Test Item Value Reference Range Interpretation Comments B/C Ratio (test code = B/C Ratio) 18 6-25 [facility] HospitalIfaekfmMMVBSDLQEN1391-29-84 18:46:00 Test Item Value Reference Range Interpretation Comments PTT (test code = PTT) 28.6 s 22.9-35.8 [facility]DjrfguwSHOJOASHSVCC3333-81-68 18:46:00 Test Item Value Reference Range Interpretation Comments A/G Ratio (test code = A/G Ratio) 1.1 0.7-1.6 [facility] HospitalInziazmCAWQVJQIJD5784-23-70 18:46:00 Test Item Value Reference Range Interpretation Comments MPV (test code = MPV) 8.1 7.4-10.4 [facility]EojnoiqEOYXJNYTFMXM4397-17-18 18:46:00 Test Item Value Reference Range Interpretation Comments Globulin (test code = Globulin) 3.3 2.0-4.0 [facility] HospitalJuvziduFDXYXLQXVM9186-59-97 18:46:00 Test Item Value Reference Range Interpretation Comments Platelet (test code = Platelet) 301 133-450 [facility] MichiganAluerxvNGOTKPVZFQPN5660-55-89 18:46:00 Test Item Value Reference Range Interpretation Comments eGFR (test code = eGFR) 99 [facility] HospitalUcejfanNMTFMUCADG9547-60-14 18:46:00 Test Item Value Reference Range Interpretation Comments RDW (test code = RDW) 14.5 11.5-14.5 [facility]KstzhxtCFMDTMGPBISS1447-41-30 18:46:00 Test Item Value Reference Range Interpretation Comments Calcium Lvl (test code = Calcium Lvl) 9.0 8.5-10.5 [facility] HospitalMhkveoiWPTPACVWWR1916-40-91 18:46:00 Test Item Value Reference Range Interpretation Comments RBC (test code = RBC) 4.84 4.70-6.10 [facility] MichiganRkmdebiZKOJZEYMQWDK4059-56-04 18:46:00 Test Item Value Reference Range Interpretation Comments Chloride Lvl (test code = Chloride Lvl) 106 95-109 [facility] HospitalHhzlqaeLNDQTHPBKN3459-91-95 18:46:00 Test Item Value Reference Range Interpretation Comments Hgb (test code = Hgb) 14.4 14.0-18.0 [facility]GswbqfnTYKVMXOUEFFN6055-96-57 18:46:00 Test Item Value Reference Range Interpretation Comments Creatinine Lvl (test code = Creatinine 0.9 0.5-1.4 Lvl) [facility] HospitalDxyevxfLUGIRJCCQS1095-20-10 18:46:00 Test Item Value Reference Range Interpretation Comments WBC (test code = WBC) 5.2 3.7-10.4 [facility]EwxloyxXCGQXBQAUNOV0824-90-02 18:46:00 Test Item Value Reference Range Interpretation Comments Potassium Lvl (test code = Potassium 4.2 3.5-5.1 Lvl) [facility] HospitalHgmtypdBKTTQFDFNX2088-22-20 18:46:00 Test Item Value Reference Range Interpretation Comments MCH (test code = MCH) 29.8 pg 27.0-31.0 [facility]AprunnzAWWGMAWZGQWG5793-72-38 18:46:00 Test Item Value Reference Range Interpretation Comments Sodium Lvl (test code = Sodium Lvl) 139 135-145 [facility] HospitalExxtjunQNOPYPQURC3097-57-69 18:46:00 Test Item Value Reference Range Interpretation Comments MCV (test code = MCV) 92.0 80.0-94.0 [facility] MichiganWmphvlaIVYGEPXBTPHL8387-92-93 18:46:00 Test Item Value Reference Range Interpretation Comments CO2 (test code = CO2) 24 24-32 [facility]GbjeofgPYCVSDUPFK0845-80-59 18:46:00 Test Item Value Reference Range Interpretation Comments Hct (test code = Hct) 44.5 42.0-54.0 [facility]YxtiblvRCRRCXWAAKIZ1458-59-67 18:46:00 Test Item Value Reference Range Interpretation Comments BUN (test code = BUN) 16 7-22 [facility] HospitalEcikfckMOXYTIBPFS9952-18-81 18:46:00 Test Item Value Reference Range Interpretation Comments MCHC (test code = MCHC) 32.4 32.0-36.0 [facility]XkbplfdDJYJMISBQBEQ5180-81-57 18:46:00 Test Item Value Reference Range Interpretation Comments Glucose Lvl (test code = Glucose Lvl) 141 70-99 [facility] LancasterHuqatlqWZXNXTNURF0312-51-75 18:46:00 Test Item Value Reference Range Interpretation Comments [place]-Hep C Ab (test Negative *NA*(07/22/14 code = [place]-Hep C 1:46 PM) Ab) [facility]HexlhcoLABHFAOHGDCB3581-22-23 18:46:00 Test Item Value Reference Range Interpretation Comments Albumin Lvl (test code = Albumin Lvl) 3.6 3.5-5.0 [facility] AND [id number] 18:46:00 Test Item Value Reference Range Interpretation Comments UA Urobilinogen (test code = UA <=1.0 mg/dL 0.1-1.0 Urobilinogen) [facility] MichiganTbtiwjqBVTYHSZSWSIL0278-00-73 18:46:00 Test Item Value Reference Range Interpretation Comments Alk Phos (test code = Alk Phos) 65 39-136 [facility] AND RYEIF1309-25-82 18:46:00 Test Item Value Reference Range Interpretation Comments UA Sq Epi (test code = UA Sq Epi) None Seen [facility]XulufmeOFASHGKBGCWP3522-80-58 18:46:00 Test Item Value Reference Range Interpretation Comments Bili Total (test code = Bili Total) 0.3 0.2-1.3 [facility] LFWZL6072-22-79 18:46:00 Test Item Value Reference Range Interpretation Comments UA Leuk Est (test Negative (07/22/14 1:46 code = UA Leuk Est) PM) [facility] MichiganSjkrzlwDQAQBHHPJRKS8996-31-91 18:46:00 Test Item Value Reference Range Interpretation Comments ALT (test code = ALT) 100 See_Comment [Auto mated message] The system which ge nerated this result transmit elizabeth reference range : <=65. The reference range was not used to interpr et this result as lukas l/abnormal. [facility]2015-06-09 18:46:00 Test Item Value Reference Range Interpretation Comments UA Nitrite (test code Negative (07/22/14 1:46 = UA Nitrite) PM) [facility] MichiganRihfremROAEASEYHBAC5027-75-01 18:46:00 Test Item Value Reference Range Interpretation Comments AST (test code = AST) 53 See_Comment [Auto mated message] The system which ge nerated this result transmit elizabeth reference range : <=37. The reference range was not used to interpr et this result as lukas l/abnormal. [facility]2015-06-09 18:46:00 Test Item Value Reference Range Interpretation Comments UA Blood (test code = Negative (07/22/14 1:46 UA Blood) PM) [facility] MichiganRachkfkPBTZPWSHDVYV1163-98-21 18:46:00 Test Item Value Reference Range Interpretation Comments Total Protein (test code = Total 6.9 6.4-8.4 Protein) [facility] HospitalXvmiznxVRSBHPLWYT2018-70-39 18:46:00 Test Item Value Reference Range Interpretation Comments Eosinophils (test code = 4.2 See_Comment [A utomated message] The Eosinophils) system which ge nerated this result tra nsmitted reference range : <=4.0. The reference r mitra was not used to int erpret this result as normal/abnormal . [facility]2015-06-09 18:46:00 Test Item Value Reference Range Interpretation Comments UA Ketones (test code = UA Negative mg/dL Ketones) [facility] HospitalYhsgcqfUSYNPLVRSZ7780-90-90 18:46:00 Test Item Value Reference Range Interpretation Comments Segs (test code = Segs) 56.4 45.0-75.0 [facility]2015-06-09 18:46:00 Test Item Value Reference Range Interpretation Comments UA Bili (test code = Negative *NA*(07/22/14 UA Bili) 1:46 PM) [facility] HospitalSboelitDQHKSUQVCH8026-15-26 18:46:00 Test Item Value Reference Range Interpretation Comments Monocytes (test code = Monocytes) 10.3 2.0-12.0 [facility] AND [id number] 18:46:00 Test Item Value Reference Range Interpretation Comments UA Bacteria (test code = UA Occasional /HPF Bacteria) [id number] 18:46:00 Test Item Value Reference Range Interpretation Comments Lymphocytes (test code = Lymphocytes) 28.0 20.0-40.0 [facility] AND [id number] 18:46:00 Test Item Value Reference Range Interpretation Comments UA RBC (test code = no gt See_Comment [Automa elizabeth message] The UA RBC) system which ge nerated this result transmit elizabeth reference range : <=2. The reference range was not used to interpr et this result as lukas l/abnormal. [facility] HospitalRgaxlqgWFGSAEDXKV3048-61-83 18:46:00 Test Item Value Reference Range Interpretation Comments Monocytes # (test code 0.5 See_Comment [Aut omated message] The = Monocytes #) system which generated this result tra nsmitted reference range : <=0.8. The reference r mitra was not used to int erpret this result as normal/abnormal . [facility]2015-06-09 18:46:00 Test Item Value Reference Range Interpretation Comments UA WBC (test code = 1 See_Comment [Automa elizabeth message] The UA WBC) system which ge nerated this result transmit elizabeth reference range : <=5. The reference range was not used to interpr et this result as lukas l/abnormal. [facility] HospitalIqclzzzKQDQSOLIDQ0263-28-63 18:46:00 Test Item Value Reference Range Interpretation Comments Basophils (test code = 1.1 See_Comment [Aut omated message] The Basophils) system which ge nerated this result tra nsmitted reference range : <=1.0. The reference r mitra was not used to int erpret this result as normal/abnormal . [facility]2015-06-09 18:46:00 Test Item Value Reference Range Interpretation Comments UA Glucose (test code = UA Glucose) 30 mg/dL [facility] HospitalLqqipftDVPEHGEULU9561-57-98 18:46:00 Test Item Value Reference Range Interpretation Comments Lymphocytes # (test code = Lymphocytes 1.5 1.0-5.5 #) [facility] AND [id number] 18:46:00 Test Item Value Reference Range Interpretation Comments UA Protein (test code = UA Negative mg/dL Protein) [facility] HospitalCyvkoreTWRHKKXGUZ7753-27-99 18:46:00 Test Item Value Reference Range Interpretation Comments Segs-Bands # (test code = Segs-Bands #) 2.9 1.5-8.1 [facility] AND [id number] 18:46:00 Test Item Value Reference Range Interpretation Comments UA pH (test code = UA pH) 6.5 5.0-8.0 [facility] HospitalLrpbgkbOREXSPENBH4408-41-22 18:46:00 Test Item Value Reference Range Interpretation Comments Eosinophils # (test code 0.2 See_Comment [A utomated message] The = Eosinophils #) system whic h generated this result tra nsmitted reference range : <=0.5. The reference r mitra was not used to int erpret this result as normal/abnormal . [facility] AND [id number] 18:46:00 Test Item Value Reference Range Interpretation Comments UA Turbidity (test code = Clear (07/22/14 1:46 UA Turbidity) PM) [facility] HospitalHcgfjneKKGWLIJJFF9827-13-31 18:46:00 Test Item Value Reference Range Interpretation Comments Basophils # (test code 0.1 See_Comment [Aut omated message] The = Basophils #) system which generated this result tra nsmitted reference range : <=0.2. The reference r mitra was not used to int erpret this result as normal/abnormal . [facility] AND [id number] 18:46:00 Test Item Value Reference Range Interpretation Comments UA Spec Grav (test code = UA Spec Grav) 1.010 [facility] HospitalXbzhiodFXXMFMNUGP0136-00-05 18:46:00 Test Item Value Reference Range Interpretation Comments PT (test code = PT) 11.2 s 12.0-14.7 [facility] AND [id number] 18:46:00 Test Item Value Reference Range Interpretation Comments UA Color (test code = Light Yellow UA Color) *NA*(07/22/14 1:46 PM) [facility] HospitalQehdwwfYETIZCCJSW2489-61-22 18:46:00 Test Item Value Reference Range Interpretation Comments INR (test code = INR) 0.82 0.85-1.17 [facility] HospitalOgoyycyCLJUFLSDDN5132-60-75 18:46:00 Test Item Value Reference Range Interpretation Comments PTT (test code = PTT) 28.6 s 22.9-35.8 [facility] HospitalAhrrildBTXOBDWHXW8935-02-14 18:46:00 Test Item Value Reference Range Interpretation Comments MPV (test code = MPV) 8.1 7.4-10.4 [facility] HospitalPscaywkLETXTFIIGM3364-28-94 18:46:00 Test Item Value Reference Range Interpretation Comments Platelet (test code = Platelet) 301 133-450 [facility] HospitalJllzvmiTZRIJCXUQY2622-02-09 18:46:00 Test Item Value Reference Range Interpretation Comments RDW (test code = RDW) 14.5 11.5-14.5 [facility] HospitalUfknplcZVTSLVVTDS9484-83-32 18:46:00 Test Item Value Reference Range Interpretation Comments RBC (test code = RBC) 4.84 4.70-6.10 [facility] HospitalVloudovMSERJQIKDV6941-72-69 18:46:00 Test Item Value Reference Range Interpretation Comments Hgb (test code = Hgb) 14.4 14.0-18.0 [facility] HospitalXluiftxJMTVPWFIRZ5343-24-54 18:46:00 Test Item Value Reference Range Interpretation Comments WBC (test code = WBC) 5.2 3.7-10.4 [facility] HospitalPxtwzgtKCLKAJLQRC9028-20-87 18:46:00 Test Item Value Reference Range Interpretation Comments MCH (test code = MCH) 29.8 pg 27.0-31.0 [facility] HospitalMlhrykaOXLUWNNVHQ5540-96-34 18:46:00 Test Item Value Reference Range Interpretation Comments MCV (test code = MCV) 92.0 80.0-94.0 [facility] HospitalXlvayfvFSIOVONTDC6470-94-04 18:46:00 Test Item Value Reference Range Interpretation Comments Hct (test code = Hct) 44.5 42.0-54.0 [facility] HospitalPdffhrwYCDWNPOJUH3097-38-07 18:46:00 Test Item Value Reference Range Interpretation Comments MCHC (test code = MCHC) 32.4 32.0-36.0 [facility]htpcfkPVNIQAZOOX3421-83-96 18:46:00 Test Item Value Reference Range Interpretation Comments [place]-Hep C Ab (test Negative *NA*(07/22/14 code = [place]-Hep C 1:46 PM) Ab) [facility] AND [id number] 18:46:00 Test Item Value Reference Range Interpretation Comments UA Urobilinogen (test code = UA <=1.0 mg/dL 0.1-1.0 Urobilinogen) [facility] AND [id number] 18:46:00 Test Item Value Reference Range Interpretation Comments UA Sq Epi (test code = UA Sq Epi) None Seen [facility] AND [id number] 18:46:00 Test Item Value Reference Range Interpretation Comments UA Leuk Est (test Negative (07/22/14 1:46 code = UA Leuk Est) PM) [facility] AND [id number] 18:46:00 Test Item Value Reference Range Interpretation Comments UA Nitrite (test code Negative (07/22/14 1:46 = UA Nitrite) PM) [facility] AND [id number] 18:46:00 Test Item Value Reference Range Interpretation Comments UA Blood (test code = Negative (07/22/14 1:46 UA Blood) PM) [facility] AND [id number] 18:46:00 Test Item Value Reference Range Interpretation Comments UA Ketones (test code = UA Negative mg/dL Ketones) [facility] AND [id number] 18:46:00 Test Item Value Reference Range Interpretation Comments UA Bili (test code = Negative *NA*(07/22/14 UA Bili) 1:46 PM) [facility] AND [id number] 18:46:00 Test Item Value Reference Range Interpretation Comments UA Bacteria (test code = UA Occasional /HPF Bacteria) [facility] AND [id number] 18:46:00 Test Item Value Reference Range Interpretation Comments UA RBC (test code = no gt See_Comment [Automa elizabeth message] The UA RBC) system which ge nerated this result transmit elizabeth reference range : <=2. The reference range was not used to interpr et this result as lukas l/abnormal. [facility] AND [id number] 18:46:00 Test Item Value Reference Range Interpretation Comments UA WBC (test code = 1 See_Comment [Automa elizabeth message] The UA WBC) system which ge nerated this result transmit elizabeth reference range : <=5. The reference range was not used to interpr et this result as lukas l/abnormal. [facility] AND [id number] 18:46:00 Test Item Value Reference Range Interpretation Comments UA Glucose (test code = UA Glucose) 30 mg/dL [facility] AND [id number] 18:46:00 Test Item Value Reference Range Interpretation Comments UA Protein (test code = UA Negative mg/dL Protein) [facility] AND [id number] 18:46:00 Test Item Value Reference Range Interpretation Comments UA pH (test code = UA pH) 6.5 5.0-8.0 [facility] AND [id number] 18:46:00 Test Item Value Reference Range Interpretation Comments UA Turbidity (test code = Clear (07/22/14 1:46 UA Turbidity) PM) [facility] AND [id number] 18:46:00 Test Item Value Reference Range Interpretation Comments UA Spec Grav (test code = UA Spec Grav) 1.010 [facility] AND [id number] 18:46:00 Test Item Value Reference Range Interpretation Comments UA Color (test code = Light Yellow UA Color) *NA*(07/22/14 1:46 PM) [facility] [id number] 18:46:00 Test Item Value Reference Range Interpretation Comments Magnesium Lvl (test code = Magnesium 1.8 1.8-2.4 Lvl) [facility]SgmecpwNEZCUDREUHPE0098-[facility]-09 18:46:00 Test Item Value Reference Range Interpretation Comments AGAP (test code = AGAP) 13.2 10.0-20.0 [facility]ApywppvQFUMVKYUIHGN2055-36-38 18:46:00 Test Item Value Reference Range Interpretation Comments B/C Ratio (test code = B/C Ratio) 18 6-25 [facility]ZnpgghvULCFVJDLNAHK5420-60-95 18:46:00 Test Item Value Reference Range Interpretation Comments A/G Ratio (test code = A/G Ratio) 1.1 0.7-1.6 [facility]DvayiikBTMNYNUCFNQX8118-14-46 18:46:00 Test Item Value Reference Range Interpretation Comments Globulin (test code = Globulin) 3.3 2.0-4.0 [facility]HlrgbhlDHEHUCWOOEAQ8526-42-65 18:46:00 Test Item Value Reference Range Interpretation Comments eGFR (test code = eGFR) 99 [facility]MbadlsmTRIIQBLYQVHP7898-05-44 18:46:00 Test Item Value Reference Range Interpretation Comments Calcium Lvl (test code = Calcium Lvl) 9.0 8.5-10.5 [facility]YdlrpdzOYDPROPIMWSV1184-30-90 18:46:00 Test Item Value Reference Range Interpretation Comments Chloride Lvl (test code = Chloride Lvl) 106 95-109 [facility]HqreesrJBMFLCQIPKNK6037-65-52 18:46:00 Test Item Value Reference Range Interpretation Comments Creatinine Lvl (test code = Creatinine 0.9 0.5-1.4 Lvl) [facility]OqdtrwsTYYSHGDIGWWE2213-82-28 18:46:00 Test Item Value Reference Range Interpretation Comments Potassium Lvl (test code = Potassium 4.2 3.5-5.1 Lvl) [facility]DzyqwstYTSKJXJJKWVE7973-60-70 18:46:00 Test Item Value Reference Range Interpretation Comments Sodium Lvl (test code = Sodium Lvl) 139 135-145 [facility]AavdmbqBFKNKORQISVE0116-70-88 18:46:00 Test Item Value Reference Range Interpretation Comments CO2 (test code = CO2) 24 24-32 [facility]JslfmouXHGHDREWYOCB2221-48-00 18:46:00 Test Item Value Reference Range Interpretation Comments BUN (test code = BUN) 16 7-22 [facility]NszbegkAAJAZTSDBKBF9200-34-81 18:46:00 Test Item Value Reference Range Interpretation Comments Glucose Lvl (test code = Glucose Lvl) 141 70-99 [facility]JwgxwwvGDVXPKHIWWTR2941-69-51 18:46:00 Test Item Value Reference Range Interpretation Comments Albumin Lvl (test code = Albumin Lvl) 3.6 3.5-5.0 [facility]IksqjifUTNHSCBPJIKW7402-28-43 18:46:00 Test Item Value Reference Range Interpretation Comments Alk Phos (test code = Alk Phos) 65 39-136 [facility]VrsbhsbYIWOPJSDEACK1715-00-58 18:46:00 Test Item Value Reference Range Interpretation Comments Bili Total (test code = Bili Total) 0.3 0.2-1.3 [facility]XeurnktMNQATNAQCQNP6337-29-55 18:46:00 Test Item Value Reference Range Interpretation Comments ALT (test code = ALT) 100 See_Comment [Auto mated message] The system which ge nerated this result transmit elizabeth reference range : <=65. The reference range was not used to interpr et this result as lukas l/abnormal. [facility] MichiganBhendanZTXUDUEWTQTF1943-12-96 18:46:00 Test Item Value Reference Range Interpretation Comments AST (test code = AST) 53 See_Comment [Auto mated message] The system which ge nerated this result transmit elizabeth reference range : <=37. The reference range was not used to interpr et this result as lukas l/abnormal. [facility] MichiganVjbqxfySHTBUQZVAPWM7962-71-73 18:46:00 Test Item Value Reference Range Interpretation Comments Total Protein (test code = Total 6.9 6.4-8.4 Protein) [facility] HospitalCtdsczgAFGBTUJYQR1789-84-87 18:46:00 Test Item Value Reference Range Interpretation Comments Eosinophils (test code = 4.2 See_Comment [A utomated message] The Eosinophils) system which ge nerated this result tra nsmitted reference range : <=4.0. The reference r mitra was not used to int erpret this result as normal/abnormal . [facility] HospitalJsyhttgZYVFSNHDGB2345-60-64 18:46:00 Test Item Value Reference Range Interpretation Comments Segs (test code = Segs) 56.4 45.0-75.0 [facility] HospitalNsxglnmJWNHZNTJVL6981-60-94 18:46:00 Test Item Value Reference Range Interpretation Comments Monocytes (test code = Monocytes) 10.3 2.0-12.0 [facility] HospitalMcdxchlMKKXOTXECD8781-83-59 18:46:00 Test Item Value Reference Range Interpretation Comments Lymphocytes (test code = Lymphocytes) 28.0 20.0-40.0 [facility] HospitalNefblbvNORILRNILN0181-88-39 18:46:00 Test Item Value Reference Range Interpretation Comments Monocytes # (test code 0.5 See_Comment [Aut omated message] The = Monocytes #) system which generated this result tra nsmitted reference range : <=0.8. The reference r mitra was not used to int erpret this result as normal/abnormal . [facility] HospitalUufimqzZIWFMNUIHR0439-12-75 18:46:00 Test Item Value Reference Range Interpretation Comments Basophils (test code = 1.1 See_Comment [Aut omated message] The Basophils) system which ge nerated this result tra nsmitted reference range : <=1.0. The reference r mitra was not used to int erpret this result as normal/abnormal . [facility] HospitalHbswtimQLYKKGOWMY2327-87-27 18:46:00 Test Item Value Reference Range Interpretation Comments Lymphocytes # (test code = Lymphocytes 1.5 1.0-5.5 #) [facility] HospitalTrhpihmJXSYXPXPSN7957-62-23 18:46:00 Test Item Value Reference Range Interpretation Comments Segs-Bands # (test code = Segs-Bands #) 2.9 1.5-8.1 [facility] HospitalAadmausWXFAHUKKUZ2002-95-50 18:46:00 Test Item Value Reference Range Interpretation Comments Eosinophils # (test code 0.2 See_Comment [A utomated message] The = Eosinophils #) system whic h generated this result tra nsmitted reference range : <=0.5. The reference r mitra was not used to int erpret this result as normal/abnormal . [facility] HospitalPgitodzKXKIXQMOCF4478-05-92 18:46:00 Test Item Value Reference Range Interpretation Comments Basophils # (test code 0.1 See_Comment [Aut omated message] The = Basophils #) system which generated this result tra nsmitted reference range : <=0.2. The reference r mitra was not used to int erpret this result as normal/abnormal . [facility] HospitalJjsynsqFCVBMAGKWW7734-20-08 18:46:00 Test Item Value Reference Range Interpretation Comments PT (test code = PT) 11.2 s 12.0-14.7 [facility] HospitalQwdkkdrUIAGSIZCFZ9580-12-03 18:46:00 Test Item Value Reference Range Interpretation Comments INR (test code = INR) 0.82 0.85-1.17 [facility] HospitalWajxeelXLZHCIZHNS9242-41-22 18:46:00 Test Item Value Reference Range Interpretation Comments PTT (test code = PTT) 28.6 s 22.9-35.8 [facility] HospitalTchwpwbTNGYYPWDKS8005-87-41 18:46:00 Test Item Value Reference Range Interpretation Comments MPV (test code = MPV) 8.1 7.4-10.4 [facility] HospitalWhurdvaAFRYROERVM4192-85-10 18:46:00 Test Item Value Reference Range Interpretation Comments Platelet (test code = Platelet) 301 716-450 [facility] LancasterYdsudjkQDAOXZQYOU3927-35-23 18:46:00 Test Item Value Reference Range Interpretation Comments RDW (test code = RDW) 14.5 11.5-14.5 [facility]CbwerxqEXIEOCHYUB9805-09-47 18:46:00 Test Item Value Reference Range Interpretation Comments RBC (test code = RBC) 4.84 4.70-6.10 [facility] HospitalKhqcsfdOPPKBZOAPF2568-42-99 18:46:00 Test Item Value Reference Range Interpretation Comments Hgb (test code = Hgb) 14.4 14.0-18.0 [facility] HospitalEizazpyDQCOENQHPO5785-05-39 18:46:00 Test Item Value Reference Range Interpretation Comments WBC (test code = WBC) 5.2 3.7-10.4 [facility] HospitalSknyiqcOFCLZRDCHZ5362-56-12 18:46:00 Test Item Value Reference Range Interpretation Comments MCH (test code = MCH) 29.8 pg 27.0-31.0 [facility] HospitalXfcpwnnVEAOKAGCAQ1740-65-24 18:46:00 Test Item Value Reference Range Interpretation Comments MCV (test code = MCV) 92.0 80.0-94.0 [facility] LancasterMyqekhtVVNWCDYGDJ1379-83-43 18:46:00 Test Item Value Reference Range Interpretation Comments Hct (test code = Hct) 44.5 42.0-54.0 [facility] LancasterKrmjjrsMNWOMRLZIZ2145-57-99 18:46:00 Test Item Value Reference Range Interpretation Comments MCHC (test code = MCHC) 32.4 32.0-36.0 [facility] LancasterOwsiuwpEWRTUSBBVF0019-31-47 18:46:00 Test Item Value Reference Range Interpretation Comments [place]-Hep C Ab (test Negative *NA*(07/22/14 code = [place]-Hep C 1:46 PM) Ab) [facility] [id number] 18:46:00 Test Item Value Reference Range Interpretation Comments UA Urobilinogen (test code = UA <=1.0 mg/dL 0.1-1.0 Urobilinogen) [facility] [id number] 18:46:00 Test Item Value Reference Range Interpretation Comments UA Sq Epi (test code = UA Sq Epi) None [facility]en [facility] [id number] 18:46:00 Test Item Value Reference Range Interpretation Comments UA Leuk Est (test Negative (07/22/14 1:46 code = UA Leuk Est) PM) [facility] AND [id number] 18:46:00 Test Item Value Reference Range Interpretation Comments UA Nitrite (test code Negative (07/22/14 1:46 = UA Nitrite) PM) [facility] AND [id number] 18:46:00 Test Item Value Reference Range Interpretation Comments UA Blood (test code = Negative (07/22/14 1:46 UA Blood) PM) [facility] AND [id number] 18:46:00 Test Item Value Reference Range Interpretation Comments UA Ketones (test code = UA Negative mg/dL Ketones) [facility] AND [id number] 18:46:00 Test Item Value Reference Range Interpretation Comments UA Bili (test code = Negative *NA*(07/22/14 UA Bili) 1:46 PM) [facility] AND QHJFL2598-30-27 18:46:00 Test Item Value Reference Range Interpretation Comments UA Bacteria (test code = UA Occasional /HPF Bacteria) [facility] AND [id number] 18:46:00 Test Item Value Reference Range Interpretation Comments UA RBC (test code = no gt See_Comment [Automa elizabeth message] The UA RBC) system which ge nerated this result transmit elizabeth reference range : <=2. The reference range was not used to interpr et this result as lukas l/abnormal. [facility] AND [id number] 18:46:00 Test Item Value Reference Range Interpretation Comments UA WBC (test code = 1 See_Comment [Automa elizabeth message] The UA WBC) system which ge nerated this result transmit elizabeth reference range : <=5. The reference range was not used to interpr et this result as lukas l/abnormal. [facility] AND [id number] 18:46:00 Test Item Value Reference Range Interpretation Comments UA Glucose (test code = UA Glucose) 30 mg/dL [facility] AND [id number] 18:46:00 Test Item Value Reference Range Interpretation Comments UA Protein (test code = UA Negative mg/dL Protein) [facility] AND [id number] 18:46:00 Test Item Value Reference Range Interpretation Comments UA pH (test code = UA pH) 6.5 5.0-8.0 [facility] [id number] 18:46:00 Test Item Value Reference Range Interpretation Comments UA Turbidity (test code = Clear (07/22/14 1:46 [facility]A Turbidity) PM) [facility] [id number] 18:46:00 Test Item Value Reference Range Interpretation Comments UA Spec Grav (test code = UA Spec Grav) 1.010 [facility] AND [id number] 18:46:00 Test Item Value Reference Range Interpretation Comments UA Color (test code = Light Yellow UA Color) *NA*(07/22/14 1:46 PM) [facility]annCHE[facility] [id number] 18:46:00 Test Item Value Reference Range Interpretation Comments Magnesium Lvl (test code = Magnesium 1.8 1.8-2.4 Lvl) [facility]MjatjzzNAAVNAZKWFHR8997-20-81 18:46:00 Test Item Value Reference Range Interpretation Comments AGAP (test code = AGAP) 13.2 10.0-20.0 [facility]AxkditoHFQPMNQXFXNM8621-17-02 18:46:00 Test Item Value Reference Range Interpretation Comments B/C Ratio (test code = B/C Ratio) 18 6-25 [facility] MichiganSmzvgmjQCUVQUFDITRF9660-38-25 18:46:00 Test Item Value Reference Range Interpretation Comments A/G Ratio (test code = A/G Ratio) 1.1 0.7-1.6 [facility] MichiganZhlegmrWGIPOYCBKTTS8425-67-99 18:46:00 Test Item Value Reference Range Interpretation Comments Globulin (test code = Globulin) 3.3 2.0-4.0 [facility] MichiganDbfxzlnRZFKSYFFODDI6141-64-07 18:46:00 Test Item Value Reference Range Interpretation Comments eGFR (test code = eGFR) 99 [facility]YjrlmndJVEBZEGNKPAN4803-51-75 18:46:00 Test Item Value Reference Range Interpretation Comments Calcium Lvl (test code = Calcium Lvl) 9.0 8.5-10.5 [facility]HfuzkmgKLTGCUQYNVOB3788-16-70 18:46:00 Test Item Value Reference Range Interpretation Comments Chloride Lvl (test code = Chloride Lvl) 106 95-109 [facility]VwbgbdhKITWCMGDXYFZ2258-17-14 18:46:00 Test Item Value Reference Range Interpretation Comments Creatinine Lvl (test code = Creatinine 0.9 0.5-1.4 Lvl) [facility] MichiganCoxgbnzPQSDFCILIIKH2626-74-01 18:46:00 Test Item Value Reference Range Interpretation Comments Potassium Lvl (test code = Potassium 4.2 3.5-5.1 Lvl) [facility]ZtgknafGGELKMKWXULH4771-92-54 18:46:00 Test Item Value Reference Range Interpretation Comments Sodium Lvl (test code = Sodium Lvl) 139 135-145 [facility]JujckkhLQNMPAUDABDZ3553-45-63 18:46:00 Test Item Value Reference Range Interpretation Comments CO2 (test code = CO2) 24 24-32 [facility]KxffhoeIGUDJBUOGASP9966-09-15 18:46:00 Test Item Value Reference Range Interpretation Comments BUN (test code = BUN) 16 7-22 [facility] MichiganDeydopnUALHUBHZEWQF4624-39-13 18:46:00 Test Item Value Reference Range Interpretation Comments Glucose Lvl (test code = Glucose Lvl) 141 70-99 [facility]UfvcdfxXBSHJEEGNNEP9913-76-52 18:46:00 Test Item Value Reference Range Interpretation Comments Albumin Lvl (test code = Albumin Lvl) 3.6 3.5-5.0 [facility]XjqeoynRTXVRFJKIWUD3696-41-35 18:46:00 Test Item Value Reference Range Interpretation Comments Alk Phos (test code = Alk Phos) 65 39-136 [facility]DpdrlnbRXJHOHSTQGDU5130-58-81 18:46:00 Test Item Value Reference Range Interpretation Comments Bili Total (test code = Bili Total) 0.3 0.2-1.3 [facility]KwgnhlsKRPWPSLCCRAX8839-92-46 18:46:00 Test Item Value Reference Range Interpretation Comments ALT (test code = ALT) 100 See_Comment [Auto mated message] The system which ge nerated this result transmit elizabeth reference range : <=65. The reference range was not used to interpr et this result as lukas l/abnormal. [facility] MichiganXqvplwcWLNHBZPSJHYL3225-86-41 18:46:00 Test Item Value Reference Range Interpretation Comments AST (test code = AST) 53 See_Comment [Auto mated message] The system which ge nerated this result transmit elizabeth reference range : <=37. The reference range was not used to interpr et this result as lukas l/abnormal. [facility]AtnxtblRXXCNCTNFOBE5540-[facility] 18:46:00 Test Item Value Reference Range Interpretation Comments Total Protein (test code = Total 6.9 6.4-8.4 Protein) [facility] HospitalPbadsuxUCMQIKGWQP4769-61-92 18:46:00 Test Item Value Reference Range Interpretation Comments Eosinophils (test code = 4.2 See_Comment [A utomated message] The Eosinophils) system which ge nerated this result tra nsmitted reference range : <=4.0. The reference r mitra was not used to int erpret this result as normal/abnormal . [facility] HospitalPkwincfWCOGPRXTOL9952-17-45 18:46:00 Test Item Value Reference Range Interpretation Comments Segs (test code = Segs) 56.4 45.0-75.0 [facility] HospitalLxiymizREHMLXSXWO8960-57-30 18:46:00 Test Item Value Reference Range Interpretation Comments Monocytes (test code = Monocytes) 10.3 2.0-12.0 [facility] HospitalJtjwmnuXJOFVNOEYU0757-69-80 18:46:00 Test Item Value Reference Range Interpretation Comments Lymphocytes (test code = Lymphocytes) 28.0 20.0-40.0 [facility] HospitalZhqzgkfNQFMFXRQOC7700-17-26 18:46:00 Test Item Value Reference Range Interpretation Comments Monocytes # (test code 0.5 See_Comment [Aut omated message] The = Monocytes #) system which generated this result tra nsmitted reference range : <=0.8. The reference r mitra was not used to int erpret this result as normal/abnormal . [facility] HospitalTzxcnvxPXXPSDBXOZ0193-47-04 18:46:00 Test Item Value Reference Range Interpretation Comments Basophils (test code = 1.1 See_Comment [Aut omated message] The Basophils) system which ge nerated this result tra nsmitted reference range : <=1.0. The reference r mitra was not used to int erpret this result as normal/abnormal . [facility] HospitalGunybycPTGPOPELKR2492-10-94 18:46:00 Test Item Value Reference Range Interpretation Comments Lymphocytes # (test code = Lymphocytes 1.5 1.0-5.5 #) [facility] HospitalAmorgpkZJMFYQRKIZ5234-97-79 18:46:00 Test Item Value Reference Range Interpretation Comments Segs-Bands # (test code = Segs-Bands #) 2.9 1.5-8.1 [facility] HospitalNwigkarADEZQLSKEB3538-31-08 18:46:00 Test Item Value Reference Range Interpretation Comments Eosinophils # (test code 0.2 See_Comment [A utomated message] The = Eosinophils #) system whic h generated this result tra nsmitted reference range : <=0.5. The reference r mitra was not used to int erpret this result as normal/abnormal . [facility] HospitalZsxrqatWCGRLCXBOA2855-47-86 18:46:00 Test Item Value Reference Range Interpretation Comments Basophils # (test code 0.1 See_Comment [Aut omated message] The = Basophils #) system which generated this result tra nsmitted reference range : <=0.2. The reference r mitra was not used to int erpret this result as normal/abnormal . [facility] HospitalXxyqlfmKQWPSANIXV8288-22-86 18:46:00 Test Item Value Reference Range Interpretation Comments PT (test code = PT) 11.2 s 12.0-14.7 [facility] HospitalFpthdfzTEHIOJTAQP6858-26-42 18:46:00 Test Item Value Reference Range Interpretation Comments INR (test code = INR) 0.82 0.85-1.17 [facility] HospitalRkdyeozCZDTIZTVDB4101-47-51 18:46:00 Test Item Value Reference Range Interpretation Comments PTT (test code = PTT) 28.6 s 22.9-35.8 [facility] HospitalEpyhptvOXBTBJEZAZ2097-74-97 18:46:00 Test Item Value Reference Range Interpretation Comments MPV (test code = MPV) 8.1 7.4-10.4 [facility] HospitalOtawsakXXCNKWKNUH9710-03-24 18:46:00 Test Item Value Reference Range Interpretation Comments Platelet (test code = Platelet) 301 133-450 [facility] HospitalPzchxcjKROQJXMHXY7827-19-24 18:46:00 Test Item Value Reference Range Interpretation Comments RDW (test code = RDW) 14.5 11.5-14.5 [facility] HospitalVtizezgTPKNHJROUJ5093-25-82 18:46:00 Test Item Value Reference Range Interpretation Comments RBC (test code = RBC) 4.84 4.70-6.10 [facility] HospitalNbebdxsTAWUKWWIRK7866-17-98 18:46:00 Test Item Value Reference Range Interpretation Comments Hgb (test code = Hgb) 14.4 14.0-18.0 [facility] HospitalTlhxvwmYIZPALRXPZ3305-82-00 18:46:00 Test Item Value Reference Range Interpretation Comments WBC (test code = WBC) 5.2 3.7-10.4 [facility] LancasterJmcuyhbOHFOHKAGHA3961-65-20 18:46:00 Test Item Value Reference Range Interpretation Comments MCH (test code = MCH) 29.8 pg 27.0-31.0 [facility]Tv[facility]ovyVBXGEQZZFK6212-64-37 18:46:00 Test Item Value Reference Range Interpretation Comments MCV (test code = MCV) 92.0 80.0-94.0 [facility] LancasterRondcnsROWFQGIMOT2089-15-99 18:46:00 Test Item Value Reference Range Interpretation Comments Hct (test code = Hct) 44.5 42.0-54.0 [facility] HospitalNztmcyfMYMUDADDBA2659-40-37 18:46:00 Test Item Value Reference Range Interpretation Comments MCHC (test code = MCHC) 32.4 32.0-36.0 [facility] LancasterBsglkuhMZYWEBAUQI6820-90-18 18:46:00 Test Item Value Reference Range Interpretation Comments [place]-Hep C Ab (test Negative *NA*(07/22/14 code = [place]-Hep C 1:46 PM) Ab) [facility] AND [id number] 18:46:00 Test Item Value Reference Range Interpretation Comments UA Urobilinogen (test code = UA <=1.0 mg/dL 0.1-1.0 Urobilinogen) [facility] AND [id number] 18:46:00 Test Item Value Reference Range Interpretation Comments UA Sq Epi (test code = UA Sq Epi) None Seen [facility] AND [id number] 18:46:00 Test Item Value Reference Range Interpretation Comments UA Leuk Est (test Negative (07/22/14 1:46 code = UA Leuk Est) PM) [facility] AND [id number] 18:46:00 Test Item Value Reference Range Interpretation Comments UA Nitrite (test code Negative (07/22/14 1:46 = UA Nitrite) PM) [facility] AND [id number] 18:46:00 Test Item Value Reference Range Interpretation Comments UA Blood (test code = Negative (07/22/14 1:46 UA Blood) PM) [facility] AND [id number] 18:46:00 Test Item Value Reference Range Interpretation Comments UA Ketones (test code = UA Negative mg/dL Ketones) [facility] AND [id number] 18:46:00 Test Item Value Reference Range Interpretation Comments UA Bili (test code = Negative *NA*(07/22/14 UA Bili) 1:46 PM) [facility] AND [id number] 18:46:00 Test Item Value Reference Range Interpretation Comments UA Bacteria (test code = UA Occasional /HPF Bacteria) [facility] AND [id number] 18:46:00 Test Item Value Reference Range Interpretation Comments UA RBC (test code = no gt See_Comment [Automa elizabeth message] The UA RBC) system which ge nerated this result transmit elizabeth reference range : <=2. The reference range was not used to interpr et this result as lukas l/abnormal. [facility] AND [id number] 18:46:00 Test Item Value Reference Range Interpretation Comments UA WBC (test code = 1 See_Comment [Automa elizabeth message] The UA WBC) system which ge nerated this result transmit elizabeth reference range : <=5. The reference range was not used to interpr et this result as lukas l/abnormal. [facility] AND [id number] 18:46:00 Test Item Value Reference Range Interpretation Comments UA Glucose (test code = UA Glucose) 30 mg/dL [facility] AND [id number] 18:46:00 Test Item Value Reference Range Interpretation Comments UA Protein (test code = UA Negative mg/dL Protein) [facility] AND [id number] 18:46:00 Test Item Value Reference Range Interpretation Comments UA pH (test code = UA pH) 6.5 5.0-8.0 [facility] AND [id number] 18:46:00 Test Item Value Reference Range Interpretation Comments UA Turbidity (test code = Clear (07/22/14 1:46 UA Turbidity) PM) [facility] AND [id number] 18:46:00 Test Item Value Reference Range Interpretation Comments UA Spec Grav (test code = UA Spec Grav) 1.010 [facility] AND [id number] 18:46:00 Test Item Value Reference Range Interpretation Comments UA Color (test code = Light Yellow UA Color) *NA*(07/22/14 1:46 PM) [facility]2015-06-09 18:46:00 Test Item Value Reference Range Interpretation Comments Magnesium Lvl (test code = Magnesium 1.8 1.8-2.4 Lvl) [facility]ZlsvobvYIEWOJVQBYKW3211-46-23 18:46:00 Test Item Value Reference Range Interpretation Comments AGAP (test code = AGAP) 13.2 10.0-20.0 [facility]WviuexcRWFUPQMVLEAF9598-21-13 18:46:00 Test Item Value Reference Range Interpretation Comments B/C Ratio (test code = B/C Ratio) 18 6-25 [facility]LhyxtaqXORUJJZELPVK1011-91-23 18:46:00 Test Item Value Reference Range Interpretation Comments A/G Ratio (test code = A/G Ratio) 1.1 0.7-1.6 [facility]KvzhaztKBYSJJWZIUSQ9853-77-75 18:46:00 Test Item Value Reference Range Interpretation Comments Globulin (test code = Globulin) 3.3 2.0-4.0 [facility]WlvumxdJKALHGYYCJSK4152-15-17 18:46:00 Test Item Value Reference Range Interpretation Comments eGFR (test code = eGFR) 99 [facility]XunnbhmVMQIXVTROJUU7256-36-97 18:46:00 Test Item Value Reference Range Interpretation Comments Calcium Lvl (test code = Calcium Lvl) 9.0 8.5-10.5 [facility]IbjuhkqOZNSNNLBCIZW3440-05-73 18:46:00 Test Item Value Reference Range Interpretation Comments Chloride Lvl (test code = Chloride Lvl) 106 95-109 [facility]IbjwqxjQKSCDDREMTQP3244-83-09 18:46:00 Test Item Value Reference Range Interpretation Comments Creatinine Lvl (test code = Creatinine 0.9 0.5-1.4 Lvl) [facility]KcthbczKJSYRKONEOGS5542-44-68 18:46:00 Test Item Value Reference Range Interpretation Comments Potassium Lvl (test code = Potassium 4.2 3.5-5.1 Lvl) [facility]OahrlnuZPMRPMPRERLO7760-89-25 18:46:00 Test Item Value Reference Range Interpretation Comments Sodium Lvl (test code = Sodium Lvl) 139 135-145 [facility]OzdxlkrUIZHJUAWWDYL2669-94-59 18:46:00 Test Item Value Reference Range Interpretation Comments CO2 (test code = CO2) 24 24-32 [facility]CeawkdnRESVAUHXSJCS1235-54-63 18:46:00 Test Item Value Reference Range Interpretation Comments BUN (test code = BUN) 16 7-22 [facility]UhyrvsuMLNDDXOPYTAO3527-09-05 18:46:00 Test Item Value Reference Range Interpretation Comments Glucose Lvl (test code = Glucose Lvl) 141 70-99 [facility] MichiganGhuizlyVNZXPVGTXDHU5561-62-48 18:46:00 Test Item Value Reference Range Interpretation Comments Albumin Lvl (test code = Albumin Lvl) 3.6 3.5-5.0 [facility]TjjkaulIGAYMXIGSUWK5027-22-69 18:46:00 Test Item Value Reference Range Interpretation Comments Alk Phos (test code = Alk Phos) 65 39-136 [facility]QwtmypyGVLHUPGYQXHC1626-33-03 18:46:00 Test Item Value Reference Range Interpretation Comments Bili Total (test code = Bili Total) 0.3 0.2-1.3 [facility]NsqivoaFBMCVVHIQYCS7317-99-73 18:46:00 Test Item Value Reference Range Interpretation Comments ALT (test code = ALT) 100 See_Comment [Auto mated message] The system which ge nerated this result transmit elizabeth reference range : <=65. The reference range was not used to interpr et this result as lukas l/abnormal. [facility] MichiganAbcsqdmGCONHJKHKSWA0669-37-90 18:46:00 Test Item Value Reference Range Interpretation Comments AST (test code = AST) 53 See_Comment [Auto mated message] The system which ge nerated this result transmit elizabeth reference range : <=37. The reference range was not used to interpr et this result as lukas l/abnormal. [facility] MichiganSonfodaFBJOXEMYHBDP1334-46-49 18:46:00 Test Item Value Reference Range Interpretation Comments Total Protein (test code = Total 6.9 6.4-8.4 Protein) [facility] HospitalDpjoontQIPDLJBZWF9301-41-06 18:46:00 Test Item Value Reference Range Interpretation Comments Eosinophils (test code = 4.2 See_Comment [A utomated message] The Eosinophils) system which ge nerated this result tra nsmitted reference range : <=4.0. The reference r mitra was not used to int erpret this result as normal/abnormal . [facility] HospitalXfcnjfnHLIQDEWPOJ7750-81-93 18:46:00 Test Item Value Reference Range Interpretation Comments Segs (test code = Segs) 56.4 45.0-75.0 [facility] HospitalEuysocnXOQORHXHQL9554-86-46 18:46:00 Test Item Value Reference Range Interpretation Comments Monocytes (test code = Monocytes) 10.3 2.0-12.0 [facility] HospitalJbnshlxBEZWFIEMWM0724-35-90 18:46:00 Test Item Value Reference Range Interpretation Comments Lymphocytes (test code = Lymphocytes) 28.0 20.0-40.0 [facility] HospitalQksyhobYGCZQYLIAG1617-44-31 18:46:00 Test Item Value Reference Range Interpretation Comments Monocytes # (test code 0.5 See_Comment [Aut omated message] The = Monocytes #) system which generated this result tra nsmitted reference range : <=0.8. The reference r mitra was not used to int erpret this result as normal/abnormal . [facility] HospitalVydpzluJJPOAAGKJL5337-64-35 18:46:00 Test Item Value Reference Range Interpretation Comments Basophils (test code = 1.1 See_Comment [Aut omated message] The Basophils) system which ge nerated this result tra nsmitted reference range : <=1.0. The reference r mitra was not used to int erpret this result as normal/abnormal . [facility] HospitalKrlewqdXOMXVUQYUM1678-83-63 18:46:00 Test Item Value Reference Range Interpretation Comments Lymphocytes # (test code = Lymphocytes 1.5 1.0-5.5 #) [facility] HospitalRjtvwagNHMCFUTLIU2693-91-08 18:46:00 Test Item Value Reference Range Interpretation Comments Segs-Bands # (test code = Segs-Bands #) 2.9 1.5-8.1 [facility] HospitalHksypweYMOPLPJMJE7595-25-92 18:46:00 Test Item Value Reference Range Interpretation Comments Eosinophils # (test code 0.2 See_Comment [A utomated message] The = Eosinophils #) system ic h generated this result tra nsmitted reference range : <=0.5. The reference r mitra was not used to int erpret this result as normal/abnormal . [facility] HospitalOmpgjxbOXGGHHSAHF2425-96-81 18:46:00 Test Item Value Reference Range Interpretation Comments Basophils # (test code 0.1 See_Comment [Aut omated message] The = Basophils #) system which generated this result tra nsmitted reference range : <=0.2. The reference r mitra was not used to int erpret this result as normal/abnormal . [facility] HospitalBcowlcfTBSDUBVNKQ2879-86-56 18:46:00 Test Item Value Reference Range Interpretation Comments PT (test code = PT) 11.2 s 12.0-14.7 [facility] HospitalDccdakjTBMZCAMQGY7620-20-96 18:46:00 Test Item Value Reference Range Interpretation Comments INR (test code = INR) 0.82 0.85-1.17 [facility] HospitalNhdlwunCDWNRPWIGR5579-84-77 18:46:00 Test Item Value Reference Range Interpretation Comments PTT (test code = PTT) 28.6 s 22.9-35.8 [facility] HospitalQffpngbWTTKAGMQUR0946-47-90 18:46:00 Test Item Value Reference Range Interpretation Comments MPV (test code = MPV) 8.1 7.4-10.4 [facility] HospitalJuovkutVNLXCWLYVT2158-74-23 18:46:00 Test Item Value Reference Range Interpretation Comments Platelet (test code = Platelet) 301 133-450 [facility] HospitalYwrzcecNHLKEPXSQI3201-75-50 18:46:00 Test Item Value Reference Range Interpretation Comments RDW (test code = RDW) 14.5 11.5-14.5 [facility] HospitalLwpozjaOTJMNFGKDY3389-20-97 18:46:00 Test Item Value Reference Range Interpretation Comments RBC (test code = RBC) 4.84 4.70-6.10 [facility] HospitalBkawrztJNMCPXEJRC3076-89-27 18:46:00 Test Item Value Reference Range Interpretation Comments Hgb (test code = Hgb) 14.4 14.0-18.0 [facility] HospitalDcvvaocQGOMPRKDFC4491-65-73 18:46:00 Test Item Value Reference Range Interpretation Comments WBC (test code = WBC) 5.2 3.7-10.4 [facility] HospitalSdwqenbHKMVCQVLDQ2099-95-07 18:46:00 Test Item Value Reference Range Interpretation Comments MCH (test code = MCH) 29.8 pg 27.0-31.0 [facility] HospitalPfyiwlxABHQDPXMUY6034-74-22 18:46:00 Test Item Value Reference Range Interpretation Comments MCV (test code = MCV) 92.0 80.0-94.0 [facility] HospitalAdjkxuvHAYPFWRLGW1588-31-71 18:46:00 Test Item Value Reference Range Interpretation Comments Hct (test code = Hct) 44.5 42.0-54.0 [facility] LancasterTqjsxerPBUDZSRWQO2078-97-31 18:46:00 Test Item Value Reference Range Interpretation Comments MCHC (test code = MCHC) 32.4 32.0-36.0 [facility]RtwyoajDBSGKFGJQU0638-18-52 18:46:00 Test Item Value Reference Range Interpretation Comments [place]-Hep C Ab (test Negative *NA*(07/22/14 code = [place]-Hep C 1:46 PM) Ab) [facility] AND [id number] 18:46:00 Test Item Value Reference Range Interpretation Comments UA Urobilinogen (test code = UA <=1.0 mg/dL 0.1-1.0 Urobilinogen) [facility] AND [id number] 18:46:00 Test Item Value Reference Range Interpretation Comments UA Sq Epi (test code = UA Sq Epi) None Seen [facility] AND [id number] 18:46:00 Test Item Value Reference Range Interpretation Comments UA Leuk Est (test Negative (07/22/14 1:46 code = UA Leuk Est) PM) [facility] AND [id number] 18:46:00 Test Item Value Reference Range Interpretation Comments UA Nitrite (test code Negative (07/22/14 1:46 = UA Nitrite) PM) [facility] AND [id number] 18:46:00 Test Item Value Reference Range Interpretation Comments UA Blood (test code = Negative (07/22/14 1:46 UA Blood) PM) [facility] AND [id number] 18:46:00 Test Item Value Reference Range Interpretation Comments UA Ketones (test code = UA Negative mg/dL Ketones) [facility] AND [id number] 18:46:00 Test Item Value Reference Range Interpretation Comments UA Bili (test code = Negative *NA*(07/22/14 UA Bili) 1:46 PM) [facility] AND [id number] 18:46:00 Test Item Value Reference Range Interpretation Comments UA Bacteria (test code = UA Occasional /HPF Bacteria) [facility] AND [id number] 18:46:00 Test Item Value Reference Range Interpretation Comments UA RBC (test code = no gt See_Comment [Automa elizabeth message] The UA RBC) system which ge nerated this result transmit elizabeth reference range : <=2. The reference range was not used to interpr et this result as lukas l/abnormal. [facility] AND [id number] 18:46:00 Test Item Value Reference Range Interpretation Comments UA WBC (test code = 1 See_Comment [Automa elizabeth message] The UA WBC) system which ge nerated this result transmit elizabeth reference range : <=5. The reference range was not used to interpr et this result as lukas l/abnormal. [facility] AND [id number] 18:46:00 Test Item Value Reference Range Interpretation Comments UA Glucose (test code = UA Glucose) 30 mg/dL [facility] AND [id number] 18:46:00 Test Item Value Reference Range Interpretation Comments UA Protein (test code = UA Negative mg/dL Protein) [facility] AND [id number] 18:46:00 Test Item Value Reference Range Interpretation Comments UA pH (test code = UA pH) 6.5 5.0-8.0 [facility] AND [id number] 18:46:00 Test Item Value Reference Range Interpretation Comments UA Turbidity (test code = Clear (07/22/14 1:46 UA Turbidity) PM) [facility] AND [id number] 18:46:00 Test Item Value Reference Range Interpretation Comments UA Spec Grav (test code = UA Spec Grav) 1.010 [facility] AND [id number] 18:46:00 Test Item Value Reference Range Interpretation Comments UA Color (test code = Light Yellow UA Color) *NA*(07/22/14 1:46 PM) [facility] CenterannCHEM EPOBD7945-68-20 18:46:00 Test Item Value Reference Range Interpretation Comments Magnesium Lvl (test code = Magnesium 1.8 1.8-2.4 Lvl) [facility] CenterQtgnlkeNSRVMPKPFPWD2863-43-97 18:46:00 Test Item Value Reference Range Interpretation Comments AGAP (test code = AGAP) 13.2 10.0-20.0 [facility]WnivpuxTWZCMATRUGKC8219-00-78 18:46:00 Test Item Value Reference Range Interpretation Comments B/C Ratio (test code = B/C Ratio) 18 6-25 [facility]QkmoqbgQQGLKNGLBXOZ6460-24-43 18:46:00 Test Item Value Reference Range Interpretation Comments A/G Ratio (test code = A/G Ratio) 1.1 0.7-1.6 [facility]CvzgydyUEKTPILVKKBY9261-52-00 18:46:00 Test Item Value Reference Range Interpretation Comments Globulin (test code = Globulin) 3.3 2.0-4.0 [facility]KjdnuaaJORAPEKUXOVW3865-70-12 18:46:00 Test Item Value Reference Range Interpretation Comments eGFR (test code = eGFR) 99 [facility]JfmmncxPTKPRLXZKOTA5204-47-54 18:46:00 Test Item Value Reference Range Interpretation Comments Calcium Lvl (test code = Calcium Lvl) 9.0 8.5-10.5 [facility]VestqkwAWZRDTKIEEYX0338-96-90 18:46:00 Test Item Value Reference Range Interpretation Comments Chloride Lvl (test code = Chloride Lvl) 106 95-109 [facility] MichiganBfjrsneMIJAKILCGSTX1477-34-89 18:46:00 Test Item Value Reference Range Interpretation Comments Creatinine Lvl (test code = Creatinine 0.9 0.5-1.4 Lvl) [facility]BqiojxhFJZCLCSYZIHR1839-95-46 18:46:00 Test Item Value Reference Range Interpretation Comments Potassium Lvl (test code = Potassium 4.2 3.5-5.1 Lvl) [facility]WiiozwsULWNPEMLXBUT0810-68-81 18:46:00 Test Item Value Reference Range Interpretation Comments Sodium Lvl (test code = Sodium Lvl) 139 135-145 [facility]LrdpycvEQFPDDHNXHIX0265-07-15 18:46:00 Test Item Value Reference Range Interpretation Comments CO2 (test code = CO2) 24 24-32 [facility]UnuwxwvUBDAFUAOHDLM4256-41-77 18:46:00 Test Item Value Reference Range Interpretation Comments BUN (test code = BUN) 16 7-22 [facility]LwvfvziFLHASIDMYQZR9686-19-82 18:46:00 Test Item Value Reference Range Interpretation Comments Glucose Lvl (test code = Glucose Lvl) 141 70-99 [facility] MichiganHequlevGOGSMFEPVGNZ3567-42-29 18:46:00 Test Item Value Reference Range Interpretation Comments Albumin Lvl (test code = Albumin Lvl) 3.6 3.5-5.0 [facility]KrhtuszZVNCYDYAFMBY5764-26-50 18:46:00 Test Item Value Reference Range Interpretation Comments Alk Phos (test code = Alk Phos) 65 39-136 [facility] MichiganNztxtrvILUKTYOXORRD3549-06-97 18:46:00 Test Item Value Reference Range Interpretation Comments Bili Total (test code = Bili Total) 0.3 0.2-1.3 [facility]XdfyjngWEARNXWAKGFF5173-73-96 18:46:00 Test Item Value Reference Range Interpretation Comments ALT (test code = ALT) 100 See_Comment [Auto mated message] The system which ge nerated this result transmit elizabeth reference range : <=65. The reference range was not used to interpr et this result as lukas l/abnormal. [facility] MichiganVrrhxmpBGVLMEZPJBDH5156-48-99 18:46:00 Test Item Value Reference Range Interpretation Comments AST (test code = AST) 53 See_Comment [Auto mated message] The system which ge nerated this result transmit elizabeth reference range : <=37. The reference range was not used to interpr et this result as lukas l/abnormal. [facility] MichiganHnbggnbLVZGJKPRRARF2747-27-01 18:46:00 Test Item Value Reference Range Interpretation Comments Total Protein (test code = Total 6.9 6.4-8.4 Protein) [facility] HospitalVzpbyqxXACTQHBNWB7265-05-90 18:46:00 Test Item Value Reference Range Interpretation Comments Eosinophils (test code = 4.2 See_Comment [A utomated message] The Eosinophils) system which ge nerated this result tra nsmitted reference range : <=4.0. The reference r mitra was not used to int erpret this result as normal/abnormal . [facility] HospitalNkruwojGASBLMGCEZ8735-23-76 18:46:00 Test Item Value Reference Range Interpretation Comments Segs (test code = Segs) 56.4 45.0-75.0 [facility] HospitalIqdsigeWEWCJNYXYA0777-67-02 18:46:00 Test Item Value Reference Range Interpretation Comments Monocytes (test code = Monocytes) 10.3 2.0-12.0 [id number] 18:46:00 Test Item Value Reference Range Interpretation Comments Lymphocytes (test code = Lymphocytes) 28.0 20.0-40.0 [facility] HospitalSatskzlAHDZMELUQM4260-17-83 18:46:00 Test Item Value Reference Range Interpretation Comments Monocytes # (test code 0.5 See_Comment [Aut omated message] The = Monocytes #) system which generated this result tra nsmitted reference range : <=0.8. The reference r mitra was not used to int erpret this result as normal/abnormal . [facility] HospitalLptpdisJMDPAVXHUR8450-54-06 18:46:00 Test Item Value Reference Range Interpretation Comments Basophils (test code = 1.1 See_Comment [Aut omated message] The Basophils) system which ge nerated this result tra nsmitted reference range : <=1.0. The reference r mitra was not used to int erpret this result as normal/abnormal . [facility] HospitalKvfmpdkNCKVYYKRFA5548-98-62 18:46:00 Test Item Value Reference Range Interpretation Comments Lymphocytes # (test code = Lymphocytes 1.5 1.0-5.5 #) [facility] HospitalDxkpimxDJRDCRTSGB3800-71-38 18:46:00 Test Item Value Reference Range Interpretation Comments Segs-Bands # (test code = Segs-Bands #) 2.9 1.5-8.1 [facility] HospitalHiubdqfSFYCSBROKI8514-30-29 18:46:00 Test Item Value Reference Range Interpretation Comments Eosinophils # (test code 0.2 See_Comment [A utomated message] The = Eosinophils #) system whic h generated this result tra nsmitted reference range : <=0.5. The reference r mitra was not used to int erpret this result as normal/abnormal . [facility] HospitalVpwouywDKHMRKBIPG6103-66-07 18:46:00 Test Item Value Reference Range Interpretation Comments Basophils # (test code 0.1 See_Comment [Aut omated message] The = Basophils #) system which generated this result tra nsmitted reference range : <=0.2. The reference r mitra was not used to int erpret this result as normal/abnormal . [facility] HospitalHrqksueCONSVUQRJQ2320-90-59 18:46:00 Test Item Value Reference Range Interpretation Comments PT (test code = PT) 11.2 s 12.0-14.7 [facility] HospitalAcfgzwqMMMYKKLRIR7348-20-57 18:46:00 Test Item Value Reference Range Interpretation Comments INR (test code = INR) 0.82 0.85-1.17 [facility] HospitalXcmxscyTVPFAXIPOB4630-48-43 18:46:00 Test Item Value Reference Range Interpretation Comments PTT (test code = PTT) 28.6 s 22.9-35.8 [facility]ZiydclgNRFPVUNBTU4916-46-73 18:46:00 Test Item Value Reference Range Interpretation Comments MPV (test code = MPV) 8.1 7.4-10.4 [facility] LancasterPltdkksLBKZTSALAT7281-73-00 18:46:00 Test Item Value Reference Range Interpretation Comments Platelet (test code = Platelet) 301 133-450 [facility] LancasterDpypcrbWHKVUXVRRN5203-21-84 18:46:00 Test Item Value Reference Range Interpretation Comments RDW (test code = RDW) 14.5 11.5-14.5 [facility] LancasterLzqulvqQZWPOGDYKW1449-81-06 18:46:00 Test Item Value Reference Range Interpretation Comments RBC (test code = RBC) 4.84 4.70-6.10 [facility] LancasterZfydjbiNOMGTIPQKC4176-64-11 18:46:00 Test Item Value Reference Range Interpretation Comments Hgb (test code = Hgb) 14.4 14.0-18.0 [facility] LancasterYvhrazoKIEQJMCOWL6531-99-19 18:46:00 Test Item Value Reference Range Interpretation Comments WBC (test code = WBC) 5.2 3.7-10.4 [facility] LancasterAnrsdraDTWAWRNACD3117-01-84 18:46:00 Test Item Value Reference Range Interpretation Comments MCH (test code = MCH) 29.8 pg 27.0-31.0 [facility] LancasterVswttzwGSXNLHRSNK8009-22-62 18:46:00 Test Item Value Reference Range Interpretation Comments MCV (test code = MCV) 92.0 80.0-94.0 [facility] LancasterQqrnfjaTVKINHDMLR8674-50-82 18:46:00 Test Item Value Reference Range Interpretation Comments Hct (test code = Hct) 44.5 42.0-54.0 [facility] LancasterPmjxvhmKTXDIFSGYI7601-33-20 18:46:00 Test Item Value Reference Range Interpretation Comments MCHC (test code = MCHC) 32.4 32.0-36.0 [facility] LancasterWbnxdfqKWVHATWIBN4179-47-78 18:46:00 Test Item Value Reference Range Interpretation Comments [place]-Hep C Ab (test Negative *NA*(07/22/14 code = [place]-Hep C 1:46 PM) Ab) [facility]2015-06-09 18:46:00 Test Item Value Reference Range Interpretation Comments UA Urobilinogen (test code = UA <=1.0 mg/dL 0.1-1.0 Urobilinogen) [facility] AND [id number] 18:46:00 Test Item Value Reference Range Interpretation Comments UA Sq Epi (test code = UA Sq Epi) None Seen [facility] AND [id number] 18:46:00 Test Item Value Reference Range Interpretation Comments UA Leuk Est (test Negative (07/22/14 1:46 code = UA Leuk Est) PM) [facility] AND [id number] 18:46:00 Test Item Value Reference Range Interpretation Comments UA Nitrite (test code Negative (07/22/14 1:46 = UA Nitrite) PM) [facility] AND [id number] 18:46:00 Test Item Value Reference Range Interpretation Comments UA Blood (test code = Negative (07/22/14 1:46 UA Blood) PM) [facility] AND [id number] 18:46:00 Test Item Value Reference Range Interpretation Comments UA Ketones (test code = UA Negative mg/dL Ketones) [facility] AND [id number] 18:46:00 Test Item Value Reference Range Interpretation Comments UA Bili (test code = Negative *NA*(07/22/14 UA Bili) 1:46 PM) [facility] AND [id number] 18:46:00 Test Item Value Reference Range Interpretation Comments UA Bacteria (test code = UA Occasional /HPF Bacteria) [facility] AND [id number] 18:46:00 Test Item Value Reference Range Interpretation Comments UA RBC (test code = no gt See_Comment [Automa elizabeth message] The UA RBC) system which ge nerated this result transmit elizabeth reference range : <=2. The reference range was not used to interpr et this result as lukas l/abnormal. [facility] AND [id number] 18:46:00 Test Item Value Reference Range Interpretation Comments UA WBC (test code = 1 See_Comment [Automa elizabeth message] The UA WBC) system which ge nerated this result transmit elizabeth reference range : <=5. The reference range was not used to interpr et this result as lukas l/abnormal. [facility] AND [id number] 18:46:00 Test Item Value Reference Range Interpretation Comments UA Glucose (test code = UA Glucose) 30 mg/dL [facility] AND [id number] 18:46:00 Test Item Value Reference Range Interpretation Comments UA Protein (test code = UA Negative mg/dL Protein) [facility] AND [id number] 18:46:00 Test Item Value Reference Range Interpretation Comments UA pH (test code = UA pH) 6.5 5.0-8.0 [facility] AND [id number] 18:46:00 Test Item Value Reference Range Interpretation Comments UA Turbidity (test code = Clear (07/22/14 1:46 UA Turbidity) PM) [facility] AND [id number] 18:46:00 Test Item Value Reference Range Interpretation Comments UA Spec Grav (test code = UA Spec Grav) 1.010 [facility] AND [id number] 18:46:00 Test Item Value Reference Range Interpretation Comments UA Color (test code = Light Yellow UA Color) *NA*(07/22/14 1:46 PM) [facility] [id number] 18:46:00 Test Item Value Reference Range Interpretation Comments Magnesium Lvl (test code = Magnesium 1.8 1.8-2.4 Lvl) [facility]WyxcrsaXMQDIBFGRMPQ1224-47-56 18:46:00 Test Item Value Reference Range Interpretation Comments AGAP (test code = AGAP) 13.2 10.0-20.0 [facility] MichiganOffsrpvHSYUHFZVTJKB0673-99-59 18:46:00 Test Item Value Reference Range Interpretation Comments B/C Ratio (test code = B/C Ratio) 18 6-25 [facility] MichiganSdyocewQHSXFOWUWLIY9127-57-72 18:46:00 Test Item Value Reference Range Interpretation Comments A/G Ratio (test code = A/G Ratio) 1.1 0.7-1.6 [facility] MichiganLjjxyjuQSYAIYZUFWKO7796-29-61 18:46:00 Test Item Value Reference Range Interpretation Comments Globulin (test code = Globulin) 3.3 2.0-4.0 [facility] MichiganQlzavmxIRATQZGLUQVW1873-30-20 18:46:00 Test Item Value Reference Range Interpretation Comments eGFR (test code = eGFR) 99 [facility] MichiganQfpdptzXDZYQSOBKXJL9027-46-50 18:46:00 Test Item Value Reference Range Interpretation Comments Calcium Lvl (test code = Calcium Lvl) 9.0 8.5-10.5 [facility] MichiganGkzyimsJNXKYYBMSMDX9471-12-85 18:46:00 Test Item Value Reference Range Interpretation Comments Chloride Lvl (test code = Chloride Lvl) 106 95-109 [facility] MichiganFceeemmFOEFOUVFIGUY1772-41-34 18:46:00 Test Item Value Reference Range Interpretation Comments Creatinine Lvl (test code = Creatinine 0.9 0.5-1.4 Lvl) [facility] MichiganEzkgayvVEQWUCVLAYVK0624-28-29 18:46:00 Test Item Value Reference Range Interpretation Comments Potassium Lvl (test code = Potassium 4.2 3.5-5.1 Lvl) [facility] MichiganLqithvwCNIPDZKOCPJB2653-56-68 18:46:00 Test Item Value Reference Range Interpretation Comments Sodium Lvl (test code = Sodium Lvl) 139 135-145 [facility] MichiganTqaxwkaADUFXYFQASPC6524-68-36 18:46:00 Test Item Value Reference Range Interpretation Comments CO2 (test code = CO2) 24 24-32 [facility] MichiganDvdajedADKNPCPUYBOG8178-58-39 18:46:00 Test Item Value Reference Range Interpretation Comments BUN (test code = BUN) 16 7-22 [facility] MichiganEbbzokfQARKDAQMPVQD1264-14-97 18:46:00 Test Item Value Reference Range Interpretation Comments Glucose Lvl (test code = Glucose Lvl) 141 70-99 [facility] MichiganIofhqwiANPONOGWYDRG8725-34-20 18:46:00 Test Item Value Reference Range Interpretation Comments Albumin Lvl (test code = Albumin Lvl) 3.6 3.5-5.0 [facility] MichiganQppididHKOJLXFOWGLY1672-83-12 18:46:00 Test Item Value Reference Range Interpretation Comments Alk Phos (test code = Alk Phos) 65 39-136 [facility] MichiganBertjyjITCRKYCPUIZM2414-04-79 18:46:00 Test Item Value Reference Range Interpretation Comments Bili Total (test code = Bili Total) 0.3 0.2-1.3 [facility] MichiganPifzetjGGXQDNAEUMJW0311-32-60 18:46:00 Test Item Value Reference Range Interpretation Comments ALT (test code = ALT) 100 See_Comment [Auto mated message] The system which ge nerated this result transmit elizabeth reference range : <=65. The reference range was not used to interpr et this result as lukas l/abnormal. [facility] MichiganBpsgofbQFAYFDVFTNZM6134-06-34 18:46:00 Test Item Value Reference Range Interpretation Comments AST (test code = AST) 53 See_Comment [Auto mated message] The system which ge nerated this result transmit elizabeth reference range : <=37. The reference range was not used to interpr et this result as lukas l/abnormal. [facility] MichiganDnfcbjwPXBWVAWDTFSA0934-73-89 18:46:00 Test Item Value Reference Range Interpretation Comments Total Protein (test code = Total 6.9 6.4-8.4 Protein) [facility] HospitalAvoilbhBAIPSOVLTA6218-09-62 18:46:00 Test Item Value Reference Range Interpretation Comments Eosinophils (test code = 4.2 See_Comment [A utomated message] The Eosinophils) system which ge nerated this result tra nsmitted reference range : <=4.0. The reference r mitra was not used to int erpret this result as normal/abnormal . [facility] HospitalMfzdioxKHDMWCSKDM5694-49-99 18:46:00 Test Item Value Reference Range Interpretation Comments Segs (test code = Segs) 56.4 45.0-75.0 [facility] HospitalLthmplgTCZVZIQHLI7587-26-27 18:46:00 Test Item Value Reference Range Interpretation Comments Monocytes (test code = Monocytes) 10.3 2.0-12.0 [facility] HospitalRkflrqlLYOLCMEXFU1237-11-74 18:46:00 Test Item Value Reference Range Interpretation Comments Lymphocytes (test code = Lymphocytes) 28.0 20.0-40.0 [facility] HospitalEocotqdQSVQWYOIAF8875-00-30 18:46:00 Test Item Value Reference Range Interpretation Comments Monocytes # (test code 0.5 See_Comment [Aut omated message] The = Monocytes #) system which generated this result tra nsmitted reference range : <=0.8. The reference r mitra was not used to int erpret this result as normal/abnormal . [facility] HospitalHyggunlMWECGVLPAP7321-10-32 18:46:00 Test Item Value Reference Range Interpretation Comments Basophils (test code = 1.1 See_Comment [Aut omated message] The Basophils) system which ge nerated this result tra nsmitted reference range : <=1.0. The reference r mitra was not used to int erpret this result as normal/abnormal . [facility] HospitalNlpjhniAGZPBSHRTL0008-50-03 18:46:00 Test Item Value Reference Range Interpretation Comments Lymphocytes # (test code = Lymphocytes 1.5 1.0-5.5 #) [facility] HospitalOjznlydBYHQGKBFOK2247-25-88 18:46:00 Test Item Value Reference Range Interpretation Comments Segs-Bands # (test code = Segs-Bands #) 2.9 1.5-8.1 [facility] HospitalEjhgrbaVVORUJIGVE8693-81-47 18:46:00 Test Item Value Reference Range Interpretation Comments Eosinophils # (test code 0.2 See_Comment [A utomated message] The = Eosinophils #) system whic h generated this result tra nsmitted reference range : <=0.5. The reference r mitra was not used to int erpret this result as normal/abnormal . [facility] HospitalCnxtkehQPNLNDDQNS4126-28-34 18:46:00 Test Item Value Reference Range Interpretation Comments Basophils # (test code 0.1 See_Comment [Aut omated message] The = Basophils #) system which generated this result tra nsmitted reference range : <=0.2. The reference r mitra was not used to int erpret this result as normal/abnormal . [facility] HospitalAlcvmmkIMERGVPQLY1344-00-01 18:46:00 Test Item Value Reference Range Interpretation Comments PT (test code = PT) 11.2 s 12.0-14.7 [facility] HospitalVfvcsxfJFUTBHTWOI1084-83-63 18:46:00 Test Item Value Reference Range Interpretation Comments INR (test code = INR) 0.82 0.85-1.17 [facility] HospitalMblmutcNYSMWTXAKE1638-44-53 18:46:00 Test Item Value Reference Range Interpretation Comments PTT (test code = PTT) 28.6 s 22.9-35.8 [facility] HospitalNrfzhgoHGLPVXOPAX3948-75-26 18:46:00 Test Item Value Reference Range Interpretation Comments MPV (test code = MPV) 8.1 7.4-10.4 [facility] HospitalNxxxcvdKWWOXTNYJJ8898-21-71 18:46:00 Test Item Value Reference Range Interpretation Comments Platelet (test code = Platelet) 301 133-450 [facility] HospitalDatpdjtAPOVWGPJAY7731-78-23 18:46:00 Test Item Value Reference Range Interpretation Comments RDW (test code = RDW) 14.5 11.5-14.5 [facility] HospitalVkxxnnrHURMEQOUYL9630-39-03 18:46:00 Test Item Value Reference Range Interpretation Comments RBC (test code = RBC) 4.84 4.70-6.10 [facility] LancasterQgbuuobHGWARBZKMY8708-00-89 18:46:00 Test Item Value Reference Range Interpretation Comments Hgb (test code = Hgb) 14.4 14.0-18.0 [facility]WyrzavmOVOXZQYWEC5382-24-54 18:46:00 Test Item Value Reference Range Interpretation Comments WBC (test code = WBC) 5.2 3.7-10.4 [facility] HospitalGvycxskDQPVYVDDWC7073-02-41 18:46:00 Test Item Value Reference Range Interpretation Comments MCH (test code = MCH) 29.8 pg 27.0-31.0 [facility] HospitalHzpoldfBPGUFRUUFW0865-88-08 18:46:00 Test Item Value Reference Range Interpretation Comments MCV (test code = MCV) 92.0 80.0-94.0 [facility] HospitalYxzoogoPIXCCDHJLH1487-16-33 18:46:00 Test Item Value Reference Range Interpretation Comments Hct (test code = Hct) 44.5 42.0-54.0 [facility] HospitalCofymxsCFWMNKCVJS4682-13-81 18:46:00 Test Item Value Reference Range Interpretation Comments MCHC (test code = MCHC) 32.4 32.0-36.0 [facility] LancasterWcfpouuEZGFDPSFNJ1359-98-41 18:46:00 Test Item Value Reference Range Interpretation Comments [place]-Hep C Ab (test Negative *NA*(07/22/14 code = [place]-Hep C 1:46 PM) Ab) [facility] AND [id number] 18:46:00 Test Item Value Reference Range Interpretation Comments UA Urobilinogen (test code = UA <=1.0 mg/dL 0.1-1.0 Urobilinogen) [facility] AND [id number] 18:46:00 Test Item Value Reference Range Interpretation Comments UA Sq Epi (test code = UA Sq Epi) None Seen [facility] AND [id number] 18:46:00 Test Item Value Reference Range Interpretation Comments UA Leuk Est (test Negative (07/22/14 1:46 code = UA Leuk Est) PM) [facility] AND [id number] 18:46:00 Test Item Value Reference Range Interpretation Comments UA Nitrite (test code Negative (07/22/14 1:46 = UA Nitrite) PM) [facility] AND [id number] 18:46:00 Test Item Value Reference Range Interpretation Comments UA Blood (test code = Negative (07/22/14 1:46 UA Blood) PM) [facility] AND [id number] 18:46:00 Test Item Value Reference Range Interpretation Comments UA Ketones (test code = UA Negative mg/dL Ketones) [facility] AND [id number] 18:46:00 Test Item Value Reference Range Interpretation Comments UA Bili (test code = Negative *NA*(07/22/14 UA Bili) 1:46 PM) [facility] AND [id number] 18:46:00 Test Item Value Reference Range Interpretation Comments UA Bacteria (test code = UA Occasional /HPF Bacteria) [facility] AND [id number] 18:46:00 Test Item Value Reference Range Interpretation Comments UA RBC (test code = no gt See_Comment [Automa elizabeth message] The UA RBC) system which ge nerated this result transmit elizabeth reference range : <=2. The reference range was not used to interpr et this result as lukas l/abnormal. [facility] AND [id number] 18:46:00 Test Item Value Reference Range Interpretation Comments UA WBC (test code = 1 See_Comment [Automa elizabeth message] The UA WBC) system which ge nerated this result transmit elizabeth reference range : <=5. The reference range was not used to interpr et this result as lukas l/abnormal. [facility] AND [id number] 18:46:00 Test Item Value Reference Range Interpretation Comments UA Glucose (test code = UA Glucose) 30 mg/dL [facility] AND [id number] 18:46:00 Test Item Value Reference Range Interpretation Comments UA Protein (test code = UA Negative mg/dL Protein) [facility] AND [id number] 18:46:00 Test Item Value Reference Range Interpretation Comments UA pH (test code = UA pH) 6.5 5.0-8.0 [facility] AND [id number] 18:46:00 Test Item Value Reference Range Interpretation Comments UA Turbidity (test code = Clear (07/22/14 1:46 UA Turbidity) PM) [facility] [id number] 18:46:00 Test Item Value Reference Range Interpretation Comments UA Spec Grav (test code = UA Spec Grav) 1.010 [facility] [id number] 18:46:00 Test Item Value Reference Range Interpretation Comments UA Color (test code = Light Yellow UA Color) *NA*(07/22/14 1:46 PM) [facility] CenterannCHEM [id number] 18:46:00 Test Item Value Reference Range Interpretation Comments Magnesium Lvl (test code = Magnesium 1.8 1.8-2.4 Lvl) [facility]VajhngjMSDBZEXWEYIK4393-30-70 18:46:00 Test Item Value Reference Range Interpretation Comments AGAP (test code = AGAP) 13.2 10.0-20.0 [facility]XpenwpeCIKCMWFUUUHF1532-05-64 18:46:00 Test Item Value Reference Range Interpretation Comments B/C Ratio (test code = B/C Ratio) 18 6-25 [facility] MichiganXugwnavUQAUUBNJLQFH9751-70-95 18:46:00 Test Item Value Reference Range Interpretation Comments A/G Ratio (test code = A/G Ratio) 1.1 0.7-1.6 [facility] MichiganFbqtljvNYJOZDMQSALY9723-00-02 18:46:00 Test Item Value Reference Range Interpretation Comments Globulin (test code = Globulin) 3.3 2.0-4.0 [facility] MichiganKmcrmqjUTKZZGKKQUFK3602-98-92 18:46:00 Test Item Value Reference Range Interpretation Comments eGFR (test code = eGFR) 99 [facility] MichiganYhffsqgVLTWZZKDWDFJ1659-01-21 18:46:00 Test Item Value Reference Range Interpretation Comments Calcium Lvl (test code = Calcium Lvl) 9.0 8.5-10.5 [facility] MichiganMmynaksUPQXXJWBIPMN6193-70-91 18:46:00 Test Item Value Reference Range Interpretation Comments Chloride Lvl (test code = Chloride Lvl) 106 95-109 [facility] MichiganZlhygknMBLAOGPRMRWS6036-25-21 18:46:00 Test Item Value Reference Range Interpretation Comments Creatinine Lvl (test code = Creatinine 0.9 0.5-1.4 Lvl) [facility] MichiganCtfhmytRNGOAYWINKVU1056-18-02 18:46:00 Test Item Value Reference Range Interpretation Comments Potassium Lvl (test code = Potassium 4.2 3.5-5.1 Lvl) [facility] MichiganJcrtptaUIKMVXSRPKZA6552-72-61 18:46:00 Test Item Value Reference Range Interpretation Comments Sodium Lvl (test code = Sodium Lvl) 139 135-145 [facility]WxkwquaEMJUJRUGIUUF2703-53-74 18:46:00 Test Item Value Reference Range Interpretation Comments CO2 (test code = CO2) 24 24-32 [facility] MichiganDmabuejYBWNCZGPURYD9258-10-56 18:46:00 Test Item Value Reference Range Interpretation Comments BUN (test code = BUN) 16 7-22 [facility] MichiganVcawjdjTRTJIZMUNQNF5275-85-99 18:46:00 Test Item Value Reference Range Interpretation Comments Glucose Lvl (test code = Glucose Lvl) 141 70-99 [facility] MichiganPkodrscTHJWAZNRELZI9067-13-26 18:46:00 Test Item Value Reference Range Interpretation Comments Albumin Lvl (test code = Albumin Lvl) 3.6 3.5-5.0 [facility] MichiganTzltmmzFCPNOMEYPNKX3867-11-54 18:46:00 Test Item Value Reference Range Interpretation Comments Alk Phos (test code = Alk Phos) 65 39-136 [facility] MichiganTthjtjuNRNVIPRQRJCQ2685-87-57 18:46:00 Test Item Value Reference Range Interpretation Comments Bili Total (test code = Bili Total) 0.3 0.2-1.3 [facility] MichiganJustmmdCNALWPTLRDAS2244-59-30 18:46:00 Test Item Value Reference Range Interpretation Comments ALT (test code = ALT) 100 See_Comment [Auto mated message] The system which ge nerated this result transmit elizabeth reference range : <=65. The reference range was not used to interpr et this result as lukas l/abnormal. [facility] MichiganRwdyxvtSMVLTVQWNUXS5686-35-19 18:46:00 Test Item Value Reference Range Interpretation Comments AST (test code = AST) 53 See_Comment [Auto mated message] The system which ge nerated this result transmit elizabeth reference range : <=37. The reference range was not used to interpr et this result as lukas l/abnormal. [facility] MichiganYhoehepTPSEHIPCAXTX0647-77-78 18:46:00 Test Item Value Reference Range Interpretation Comments Total Protein (test code = Total 6.9 6.4-8.4 Protein) [facility] HospitalRtfgvbcPJELVOUUNU0226-30-78 18:46:00 Test Item Value Reference Range Interpretation Comments Eosinophils (test code = 4.2 See_Comment [A utomated message] The Eosinophils) system which ge nerated this result tra nsmitted reference range : <=4.0. The reference r mitra was not used to int erpret this result as normal/abnormal . [facility] HospitalZqsjtuoAHCOKRTUHI1951-93-43 18:46:00 Test Item Value Reference Range Interpretation Comments Segs (test code = Segs) 56.4 45.0-75.0 [facility] HospitalTagzwdnACTJCYECMD0039-37-06 18:46:00 Test Item Value Reference Range Interpretation Comments Monocytes (test code = Monocytes) 10.3 2.0-12.0 [facility] HospitalQzowuwsHTRCRKJYVH9339-22-51 18:46:00 Test Item Value Reference Range Interpretation Comments Lymphocytes (test code = Lymphocytes) 28.0 20.0-40.0 [facility] HospitalYcvxokgLAWFHXPDAJ6730-37-41 18:46:00 Test Item Value Reference Range Interpretation Comments Monocytes # (test code 0.5 See_Comment [Aut omated message] The = Monocytes #) system which generated this result tra nsmitted reference range : <=0.8. The reference r mitra was not used to int erpret this result as normal/abnormal . [facility] HospitalUjjtwxoIELTPIWGGW5798-79-02 18:46:00 Test Item Value Reference Range Interpretation Comments Basophils (test code = 1.1 See_Comment [Aut omated message] The Basophils) system which ge nerated this result tra nsmitted reference range : <=1.0. The reference r mitra was not used to int erpret this result as normal/abnormal . [facility] HospitalVktpnguRJUYMUWCXP6729-42-09 18:46:00 Test Item Value Reference Range Interpretation Comments Lymphocytes # (test code = Lymphocytes 1.5 1.0-5.5 #) [facility]HpvnakfYFSANWNXMB0745-34-46 18:46:00 Test Item Value Reference Range Interpretation Comments Segs-Bands # (test code = Segs-Bands #) 2.9 1.5-8.1 [facility] HospitalQlfoqlgTNMDOTHTQE9947-64-59 18:46:00 Test Item Value Reference Range Interpretation Comments Eosinophils # (test code 0.2 See_Comment [A utomated message] The = Eosinophils #) system ic h generated this result tra nsmitted reference range : <=0.5. The reference r mitra was not used to int erpret this result as normal/abnormal . [facility] HospitalOdzisqwENCHBRPLJV6420-22-25 18:46:00 Test Item Value Reference Range Interpretation Comments Basophils # (test code 0.1 See_Comment [Aut omated message] The = Basophils #) system which generated this result tra nsmitted reference range : <=0.2. The reference r mitra was not used to int erpret this result as normal/abnormal . [facility] HospitalRdhccrtOZEHQEXXJO7899-31-84 18:46:00 Test Item Value Reference Range Interpretation Comments PT (test code = PT) 11.2 s 12.0-14.7 [facility] HospitalXugdbykGLYJRNWCXP5448-81-19 18:46:00 Test Item Value Reference Range Interpretation Comments INR (test code = INR) 0.82 0.85-1.17 [facility] HospitalWvhqjwgADYGRCUESZ1483-50-49 18:46:00 Test Item Value Reference Range Interpretation Comments PTT (test code = PTT) 28.6 s 22.9-35.8 [facility] HospitalJntcarjVTNJRVYSLA1652-52-99 18:46:00 Test Item Value Reference Range Interpretation Comments MPV (test code = MPV) 8.1 7.4-10.4 [facility] HospitalAahvayuMVPXPLRSLM3386-44-49 18:46:00 Test Item Value Reference Range Interpretation Comments Platelet (test code = Platelet) 301 133-450 [facility] HospitalGghcyhdIFWRVHVXKR2145-59-04 18:46:00 Test Item Value Reference Range Interpretation Comments RDW (test code = RDW) 14.5 11.5-14.5 [facility] HospitalBlkqxcwFRJWBISUMH0550-38-05 18:46:00 Test Item Value Reference Range Interpretation Comments RBC (test code = RBC) 4.84 4.70-6.10 [facility] HospitalXtgfmubOCNDPDVMYN6822-14-59 18:46:00 Test Item Value Reference Range Interpretation Comments Hgb (test code = Hgb) 14.4 14.0-18.0 [facility] HospitalIudlnrwTQFYGPMMHA9346-40-45 18:46:00 Test Item Value Reference Range Interpretation Comments WBC (test code = WBC) 5.2 3.7-10.4 [facility] HospitalOxnfverFUAPWTDDQU5978-39-44 18:46:00 Test Item Value Reference Range Interpretation Comments MCH (test code = MCH) 29.8 pg 27.0-31.0 [facility]SvscqowOROIFZOFMM7072-67-78 18:46:00 Test Item Value Reference Range Interpretation Comments MCV (test code = MCV) 92.0 80.0-94.0 [facility] RsfednrWPBSWHLALK8387-74-94 18:46:00 Test Item Value Reference Range Interpretation Comments Hct (test code = Hct) 44.5 42.0-54.0 [facility] LancasterYibhvslQNWFIPVXOP4097-11-26 18:46:00 Test Item Value Reference Range Interpretation Comments MCHC (test code = MCHC) 32.4 32.0-36.0 [facility] LancasterKkeloyqPUYLBHLINF6523-82-52 18:46:00 Test Item Value Reference Range Interpretation Comments [place]-Hep C Ab (test Negative *NA*(07/22/14 code = [place]-Hep C 1:46 PM) Ab) [facility] AND [id number] 18:46:00 Test Item Value Reference Range Interpretation Comments UA Urobilinogen (test code = UA <=1.0 mg/dL 0.1-1.0 Urobilinogen) [facility] AND [id number] 18:46:00 Test Item Value Reference Range Interpretation Comments UA Sq Epi (test code = UA Sq Epi) None Seen [facility] AND [id number] 18:46:00 Test Item Value Reference Range Interpretation Comments UA Leuk Est (test Negative (07/22/14 1:46 code = UA Leuk Est) PM) [facility] AND [id number] 18:46:00 Test Item Value Reference Range Interpretation Comments UA Nitrite (test code Negative (07/22/14 1:46 = UA Nitrite) PM) [facility] AND [id number] 18:46:00 Test Item Value Reference Range Interpretation Comments UA Blood (test code = Negative (07/22/14 1:46 UA Blood) PM) [facility] AND [id number] 18:46:00 Test Item Value Reference Range Interpretation Comments UA Ketones (test code = UA Negative mg/dL Ketones) [facility] AND [id number] 18:46:00 Test Item Value Reference Range Interpretation Comments UA Bili (test code = Negative *NA*(07/22/14 UA Bili) 1:46 PM) [facility] [id number] 18:46:00 Test Item Value Reference Range Interpretation Comments UA Bacteria (test code = UA Occasional /HPF Bacteria) [facility] [id number] 18:46:00 Test Item Value Reference Range Interpretation Comments UA RBC (test code = no gt See_Comment [Automa elizabeth message] The UA RBC) system which ge nerated this result transmit elizabeth reference range : <=2. The reference range was not used to interpr et this result as lukas l/abnormal. [facility] [id number] 18:46:00 Test Item Value Reference Range Interpretation Comments UA WBC (test code = 1 See_Comment [Automa elizabeth message] The UA WBC) system which ge nerated this result transmit elziabeth reference range : <=5. The reference range was not used to interpr et this result as lukas l/abnormal. [facility] [id number] 18:46:00 Test Item Value Reference Range Interpretation Comments UA Glucose (test code = UA Glucose) 30 mg/dL [facility] [id number] 18:46:00 Test Item Value Reference Range Interpretation Comments UA Protein (test code = UA Negative mg/dL Protein) [facility] [id number] 18:46:00 Test Item Value Reference Range Interpretation Comments UA pH (test code = UA pH) 6.5 5.0-8.0 [facility] [id number] 18:46:00 Test Item Value Reference Range Interpretation Comments UA Turbidity (test code = Clear (07/22/14 1:46 UA Turbidity) PM) [facility] [id number] 18:46:00 Test Item Value Reference Range Interpretation Comments UA Spec Grav (test code = UA Spec Grav) 1.010 [facility] [id number] 18:46:00 Test Item Value Reference Range Interpretation Comments UA Color (test code = Light Yellow UA Color) *NA*(07/22/14 1:46 PM) [facility] [id number] 18:46:00 Test Item Value Reference Range Interpretation Comments Magnesium Lvl (test code = Magnesium 1.8 1.8-2.4 Lvl) [facility] YooarofNBSOHCDTRBOO4125-60-33 18:46:00 Test Item Value Reference Range Interpretation Comments AGAP (test code = AGAP) 13.2 10.0-20.0 [facility]IugmrzmVONDZDAWYDBK7891-17-49 18:46:00 Test Item Value Reference Range Interpretation Comments B/C Ratio (test code = B/C Ratio) 18 6-25 [facility] MichiganYljqylrFXQBTMTNPWUP4973-14-38 18:46:00 Test Item Value Reference Range Interpretation Comments A/G Ratio (test code = A/G Ratio) 1.1 0.7-1.6 [facility] MichiganNmtttghBCBAOFTABAYO7886-83-76 18:46:00 Test Item Value Reference Range Interpretation Comments Globulin (test code = Globulin) 3.3 2.0-4.0 [facility] MichiganSwnjbviZFDQGFOGMPSY3609-91-71 18:46:00 Test Item Value Reference Range Interpretation Comments eGFR (test code = eGFR) 99 [facility]XymkvvtYNCHJMARERQR7697-37-88 18:46:00 Test Item Value Reference Range Interpretation Comments Calcium Lvl (test code = Calcium Lvl) 9.0 8.5-10.5 [facility]QxwihlrWYZOCVGEUPSR2473-97-38 18:46:00 Test Item Value Reference Range Interpretation Comments Chloride Lvl (test code = Chloride Lvl) 106 95-109 [facility] MichiganKyeehsvJLGEFBFRISLI2294-94-96 18:46:00 Test Item Value Reference Range Interpretation Comments Creatinine Lvl (test code = Creatinine 0.9 0.5-1.4 Lvl) [facility] MichiganNhmshmfMPVPJDFWMVWB9647-91-13 18:46:00 Test Item Value Reference Range Interpretation Comments Potassium Lvl (test code = Potassium 4.2 3.5-5.1 Lvl) [facility] MichiganKnupdamRUEKVUOAOPMS2743-66-61 18:46:00 Test Item Value Reference Range Interpretation Comments Sodium Lvl (test code = Sodium Lvl) 139 135-145 [facility] MichiganHxxufljYVXEGMUEBFMF2690-90-88 18:46:00 Test Item Value Reference Range Interpretation Comments CO2 (test code = CO2) 24 24-32 [facility]QlxklfaWAWFOJDYXIQM7433-92-83 18:46:00 Test Item Value Reference Range Interpretation Comments BUN (test code = BUN) 16 7-22 [facility] MichiganHpfegkgFJJMAFUQXXXZ1124-98-18 18:46:00 Test Item Value Reference Range Interpretation Comments Glucose Lvl (test code = Glucose Lvl) 141 70-99 [facility] MichiganUqscfytNPANKGONLWCA0275-33-02 18:46:00 Test Item Value Reference Range Interpretation Comments Albumin Lvl (test code = Albumin Lvl) 3.6 3.5-5.0 [facility] MichiganLmiwnwvOFLWCQNVQHTB9993-02-66 18:46:00 Test Item Value Reference Range Interpretation Comments Alk Phos (test code = Alk Phos) 65 39-136 [facility] MichiganScfnsfmSQNQWOKACJTQ0509-93-54 18:46:00 Test Item Value Reference Range Interpretation Comments Bili Total (test code = Bili Total) 0.3 0.2-1.3 [facility] MichiganQadlxskYDDVNDXUBRTZ7203-03-79 18:46:00 Test Item Value Reference Range Interpretation Comments ALT (test code = ALT) 100 See_Comment [Auto mated message] The system which ge nerated this result transmit elizabeth reference range : <=65. The reference range was not used to interpr et this result as lukas l/abnormal. [facility] MichiganRbcdzdqTHEUTFGCAMGG8392-83-41 18:46:00 Test Item Value Reference Range Interpretation Comments AST (test code = AST) 53 See_Comment [Auto mated message] The system which ge nerated this result transmit elizabeth reference range : <=37. The reference range was not used to interpr et this result as lukas l/abnormal. [facility] MichiganDgqyojmQRKCPGHTMSMW2286-49-57 18:46:00 Test Item Value Reference Range Interpretation Comments Total Protein (test code = Total 6.9 6.4-8.4 Protein) [facility] HospitalKmxozdcBHSGTDGBUE0675-85-09 18:46:00 Test Item Value Reference Range Interpretation Comments Eosinophils (test code = 4.2 See_Comment [A utomated message] The Eosinophils) system which ge nerated this result tra nsmitted reference range : <=4.0. The reference r mitra was not used to int erpret this result as normal/abnormal . [facility] HospitalJwswgedBKMHDGYCBH3592-54-08 18:46:00 Test Item Value Reference Range Interpretation Comments Segs (test code = Segs) 56.4 45.0-75.0 [facility] HospitalDmcjaolJCPZRYLSSZ3871-84-05 18:46:00 Test Item Value Reference Range Interpretation Comments Monocytes (test code = Monocytes) 10.3 2.0-12.0 [facility] HospitalDqotfndVVTJMQOWRJ0569-01-25 18:46:00 Test Item Value Reference Range Interpretation Comments Lymphocytes (test code = Lymphocytes) 28.0 20.0-40.0 [facility] HospitalNtlbofbIKSDWIASSX3053-72-79 18:46:00 Test Item Value Reference Range Interpretation Comments Monocytes # (test code 0.5 See_Comment [Aut omated message] The = Monocytes #) system which generated this result tra nsmitted reference range : <=0.8. The reference r mitra was not used to int erpret this result as normal/abnormal . [facility] HospitalGmkivbjNOYNLFEPNN8795-11-61 18:46:00 Test Item Value Reference Range Interpretation Comments Basophils (test code = 1.1 See_Comment [Aut omated message] The Basophils) system which ge nerated this result tra nsmitted reference range : <=1.0. The reference r mitra was not used to int erpret this result as normal/abnormal . [facility] HospitalBollrqkTTNDFJIKNU9553-33-05 18:46:00 Test Item Value Reference Range Interpretation Comments Lymphocytes # (test code = Lymphocytes 1.5 1.0-5.5 #) [facility] HospitalVceqbquABFAYTHLVS3433-32-36 18:46:00 Test Item Value Reference Range Interpretation Comments Segs-Bands # (test code = Segs-Bands #) 2.9 1.5-8.1 [facility] HospitalUrkveutFXSYMTDMER7243-32-91 18:46:00 Test Item Value Reference Range Interpretation Comments Eosinophils # (test code 0.2 See_Comment [A utomated message] The = Eosinophils #) system wh h generated this result tra nsmitted reference range : <=0.5. The reference r mitra was not used to int erpret this result as normal/abnormal . [facility] HospitalOgasaezNWRPVTSYED0668-86-45 18:46:00 Test Item Value Reference Range Interpretation Comments Basophils # (test code 0.1 See_Comment [Aut omated message] The = Basophils #) system which generated this result tra nsmitted reference range : <=0.2. The reference r mitra was not used to int erpret this result as normal/abnormal . [facility] HospitalFvdlumjCULUNGUFWK0490-78-03 18:46:00 Test Item Value Reference Range Interpretation Comments PT (test code = PT) 11.2 s 12.0-14.7 [facility] HospitalKieugliBDICFKYODN8161-08-93 18:46:00 Test Item Value Reference Range Interpretation Comments INR (test code = INR) 0.82 0.85-1.17 [facility] HospitalYtbhazzUUFQSPYBER5153-78-56 18:46:00 Test Item Value Reference Range Interpretation Comments PTT (test code = PTT) 28.6 s 22.9-35.8 [facility] HospitalIognnlqMQHUAPNFFH9975-47-35 18:46:00 Test Item Value Reference Range Interpretation Comments MPV (test code = MPV) 8.1 7.4-10.4 [facility] HospitalBnhvfhpCDJHITBUCP7469-54-50 18:46:00 Test Item Value Reference Range Interpretation Comments Platelet (test code = Platelet) 301 133-450 [facility] HospitalPmfjrzkRAHVNNTEBD7023-29-38 18:46:00 Test Item Value Reference Range Interpretation Comments RDW (test code = RDW) 14.5 11.5-14.5 [facility] HospitalJtbufukHQGIWUVZQK9905-27-73 18:46:00 Test Item Value Reference Range Interpretation Comments RBC (test code = RBC) 4.84 4.70-6.10 [facility] HospitalApujztnSMFOLRIWSZ4295-86-45 18:46:00 Test Item Value Reference Range Interpretation Comments Hgb (test code = Hgb) 14.4 14.0-18.0 [facility] HospitalVxpdlpbYGDOZSSAHN1793-82-24 18:46:00 Test Item Value Reference Range Interpretation Comments WBC (test code = WBC) 5.2 3.7-10.4 [facility] HospitalBtcwfaeWQLMYVWCNX3537-92-12 18:46:00 Test Item Value Reference Range Interpretation Comments MCH (test code = MCH) 29.8 pg 27.0-31.0 [facility] HospitalZtpbwknSUUMGPKQZZ1187-49-15 18:46:00 Test Item Value Reference Range Interpretation Comments MCV (test code = MCV) 92.0 80.0-94.0 [facility] HospitalOcqvvjcBCMKNIAQRX3165-91-97 18:46:00 Test Item Value Reference Range Interpretation Comments Hct (test code = Hct) 44.5 42.0-54.0 [facility] HospitalItaayppJZDOWDFSXB9570-30-26 18:46:00 Test Item Value Reference Range Interpretation Comments MCHC (test code = MCHC) 32.4 32.0-36.0 [facility] LancasterOqynvxyNAJQZBOMMC1611-74-29 18:46:00 Test Item Value Reference Range Interpretation Comments [place]-Hep C Ab (test Negative *NA*(07/22/14 code = [place]-Hep C 1:46 PM) Ab) [facility] AND [id number] 18:46:00 Test Item Value Reference Range Interpretation Comments UA Urobilinogen (test code = UA <=1.0 mg/dL 0.1-1.0 Urobilinogen) [facility] AND [id number] 18:46:00 Test Item Value Reference Range Interpretation Comments UA Sq Epi (test code = UA Sq Epi) None Seen [facility] AND [id number] 18:46:00 Test Item Value Reference Range Interpretation Comments UA Leuk Est (test Negative (07/22/14 1:46 code = UA Leuk Est) PM) [facility] AND [id number] 18:46:00 Test Item Value Reference Range Interpretation Comments UA Nitrite (test code Negative (07/22/14 1:46 = UA Nitrite) PM) [facility] AND [id number] 18:46:00 Test Item Value Reference Range Interpretation Comments UA Blood (test code = Negative (07/22/14 1:46 UA Blood) PM) [facility] AND [id number] 18:46:00 Test Item Value Reference Range Interpretation Comments UA Ketones (test code = UA Negative mg/dL Ketones) [facility] AND [id number] 18:46:00 Test Item Value Reference Range Interpretation Comments UA Bili (test code = Negative *NA*(07/22/14 UA Bili) 1:46 PM) [facility] AND [id number] 18:46:00 Test Item Value Reference Range Interpretation Comments UA Bacteria (test code = UA Occasional /HPF Bacteria) [facility] AND [id number] 18:46:00 Test Item Value Reference Range Interpretation Comments UA RBC (test code = no gt See_Comment [Automa elizabeth message] The UA RBC) system which ge nerated this result transmit elizabeth reference range : <=2. The reference range was not used to interpr et this result as lukas l/abnormal. [facility] AND [id number] 18:46:00 Test Item Value Reference Range Interpretation Comments UA WBC (test code = 1 See_Comment [Automa elizabeth message] The UA WBC) system which ge nerated this result transmit elizabeth reference range : <=5. The reference range was not used to interpr et this result as lukas l/abnormal. [facility] AND [id number] 18:46:00 Test Item Value Reference Range Interpretation Comments UA Glucose (test code = UA Glucose) 30 mg/dL [facility] AND [id number] 18:46:00 Test Item Value Reference Range Interpretation Comments UA Protein (test code = UA Negative mg/dL Protein) [facility] AND [id number] 18:46:00 Test Item Value Reference Range Interpretation Comments UA pH (test code = UA pH) 6.5 5.0-8.0 [facility] AND [id number] 18:46:00 Test Item Value Reference Range Interpretation Comments UA Turbidity (test code = Clear (07/22/14 1:46 UA Turbidity) PM) [facility] AND [id number] 18:46:00 Test Item Value Reference Range Interpretation Comments UA Spec Grav (test code = UA Spec Grav) 1.010 [facility] AND [id number] 18:46:00 Test Item Value Reference Range Interpretation Comments UA Color (test code = Light Yellow UA Color) *NA*(07/22/14 1:46 PM) [facility] [id number] 18:46:00 Test Item Value Reference Range Interpretation Comments Magnesium Lvl (test code = Magnesium 1.8 1.8-2.4 Lvl) [facility]KiwqczhPNZYPTIGIUJL9394-65-31 18:46:00 Test Item Value Reference Range Interpretation Comments AGAP (test code = AGAP) 13.2 10.0-20.0 [facility]QzyvtjtYRKGPCRCWDGD8971-92-45 18:46:00 Test Item Value Reference Range Interpretation Comments B/C Ratio (test code = B/C Ratio) 18 6-25 [facility] MichiganVcrluvrDBSBSHXEJRCU7976-36-69 18:46:00 Test Item Value Reference Range Interpretation Comments A/G Ratio (test code = A/G Ratio) 1.1 0.7-1.6 [facility]QksygpnXYACCHFQYFXE7817-96-95 18:46:00 Test Item Value Reference Range Interpretation Comments Globulin (test code = Globulin) 3.3 2.0-4.0 [facility] MichiganJnbnwcbGMLUJEUPGROF7195-14-26 18:46:00 Test Item Value Reference Range Interpretation Comments eGFR (test code = eGFR) 99 [facility] MichiganOzylzaxOXMRCUSASGVJ3812-25-21 18:46:00 Test Item Value Reference Range Interpretation Comments Calcium Lvl (test code = Calcium Lvl) 9.0 8.5-10.5 [facility] MichiganSwioebdJLVFYFVDEGHK0028-47-57 18:46:00 Test Item Value Reference Range Interpretation Comments Chloride Lvl (test code = Chloride Lvl) 106 95-109 [facility] MichiganCyewpvmBLFQVKOIDQHI8238-82-22 18:46:00 Test Item Value Reference Range Interpretation Comments Creatinine Lvl (test code = Creatinine 0.9 0.5-1.4 Lvl) [facility] MichiganRmzbtgmOFKMLNEWYZIK0708-44-23 18:46:00 Test Item Value Reference Range Interpretation Comments Potassium Lvl (test code = Potassium 4.2 3.5-5.1 Lvl) [facility] MichiganOfkaixcTLDOUELNCKXI3666-40-71 18:46:00 Test Item Value Reference Range Interpretation Comments Sodium Lvl (test code = Sodium Lvl) 139 135-145 [facility] MichiganWharhwrYXHLSHQZDFKJ3033-14-03 18:46:00 Test Item Value Reference Range Interpretation Comments CO2 (test code = CO2) 24 24-32 [facility] MichiganPsnaupcIBWVMGKNGVFV7012-29-76 18:46:00 Test Item Value Reference Range Interpretation Comments BUN (test code = BUN) 16 7-22 [facility] MichiganIjagqqlYNUBDMAZPIDN0430-76-57 18:46:00 Test Item Value Reference Range Interpretation Comments Glucose Lvl (test code = Glucose Lvl) 141 70-99 [facility] MichiganJhrcrlrMTLDRWLVLYZJ5690-85-37 18:46:00 Test Item Value Reference Range Interpretation Comments Albumin Lvl (test code = Albumin Lvl) 3.6 3.5-5.0 [facility] MichiganDswaoewSRQUOZFUPNUI7917-51-04 18:46:00 Test Item Value Reference Range Interpretation Comments Alk Phos (test code = Alk Phos) 65 39-136 [facility]CxstzvjYKJZLAJJFYEJ6484-13-42 18:46:00 Test Item Value Reference Range Interpretation Comments Bili Total (test code = Bili Total) 0.3 0.2-1.3 [facility] MichiganBlusujcZILUJTYXYJRY0296-36-97 18:46:00 Test Item Value Reference Range Interpretation Comments ALT (test code = ALT) 100 See_Comment [Auto mated message] The system which ge nerated this result transmit elizabeth reference range : <=65. The reference range was not used to interpr et this result as lukas l/abnormal. [facility] MichiganWqdaojgYHQWPSNZSHVT4338-22-86 18:46:00 Test Item Value Reference Range Interpretation Comments AST (test code = AST) 53 See_Comment [Auto mated message] The system which ge nerated this result transmit elizabeth reference range : <=37. The reference range was not used to interpr et this result as lukas l/abnormal. [facility] MichiganDasjrnkNSPSXXDIPGTD8051-15-41 18:46:00 Test Item Value Reference Range Interpretation Comments Total Protein (test code = Total 6.9 6.4-8.4 Protein) [facility] HospitalGxgnunhVHMZNJDENP3738-56-64 18:46:00 Test Item Value Reference Range Interpretation Comments Eosinophils (test code = 4.2 See_Comment [A utomated message] The Eosinophils) system which ge nerated this result tra nsmitted reference range : <=4.0. The reference r mitra was not used to int erpret this result as normal/abnormal . [facility] HospitalDvqqavlLHGYJMYPMG5097-15-30 18:46:00 Test Item Value Reference Range Interpretation Comments Segs (test code = Segs) 56.4 45.0-75.0 [facility] HospitalSvidajtWDWDDKSENZ0084-12-45 18:46:00 Test Item Value Reference Range Interpretation Comments Monocytes (test code = Monocytes) 10.3 2.0-12.0 [facility] HospitalUossqrzPTXOTCZFKI5946-51-01 18:46:00 Test Item Value Reference Range Interpretation Comments Lymphocytes (test code = Lymphocytes) 28.0 20.0-40.0 [facility] HospitalZpryntnMJJCZEFERJ5523-73-67 18:46:00 Test Item Value Reference Range Interpretation Comments Monocytes # (test code 0.5 See_Comment [Aut omated message] The = Monocytes #) system which generated this result tra nsmitted reference range : <=0.8. The reference r mitra was not used to int erpret this result as normal/abnormal . [facility] HospitalJovfhlzBHBWQFKPLO3287-78-80 18:46:00 Test Item Value Reference Range Interpretation Comments Basophils (test code = 1.1 See_Comment [Aut omated message] The Basophils) system which ge nerated this result tra nsmitted reference range : <=1.0. The reference r mitra was not used to int erpret this result as normal/abnormal . [facility] HospitalWbphkpqZRMFHMWRGB8293-61-65 18:46:00 Test Item Value Reference Range Interpretation Comments Lymphocytes # (test code = Lymphocytes 1.5 1.0-5.5 #) [facility] HospitalCvoguctWBQPWDLTTV2794-26-70 18:46:00 Test Item Value Reference Range Interpretation Comments Segs-Bands # (test code = Segs-Bands #) 2.9 1.5-8.1 [facility] HospitalOnvbokbMJQFBARCBL0339-19-98 18:46:00 Test Item Value Reference Range Interpretation Comments Eosinophils # (test code 0.2 See_Comment [A utomated message] The = Eosinophils #) system whic h generated this result tra nsmitted reference range : <=0.5. The reference r mitra was not used to int erpret this result as normal/abnormal . [facility] HospitalSfhvswcGWXDHTMJUK3179-14-15 18:46:00 Test Item Value Reference Range Interpretation Comments Basophils # (test code 0.1 See_Comment [Aut omated message] The = Basophils #) system which generated this result tra nsmitted reference range : <=0.2. The reference r mitra was not used to int erpret this result as normal/abnormal . [facility] HospitalFqlwonoXGWDANYUUH7683-79-83 18:46:00 Test Item Value Reference Range Interpretation Comments PT (test code = PT) 11.2 s 12.0-14.7 [facility] HospitalRgzguxjTBDOFTUJXU4775-36-38 18:46:00 Test Item Value Reference Range Interpretation Comments INR (test code = INR) 0.82 0.85-1.17 [facility] HospitalBzphjuiLTQVUWGMXC0743-32-85 18:46:00 Test Item Value Reference Range Interpretation Comments PTT (test code = PTT) 28.6 s 22.9-35.8 [facility] HospitalQtnzeisTUTUBGVUEP9887-57-91 18:46:00 Test Item Value Reference Range Interpretation Comments MPV (test code = MPV) 8.1 7.4-10.4 [facility] HospitalJhqpkqvZVDMEORNZQ0304-40-27 18:46:00 Test Item Value Reference Range Interpretation Comments Platelet (test code = Platelet) 301 133-450 [facility]GvwjkjrUOSIFNXJDR7296-77-89 18:46:00 Test Item Value Reference Range Interpretation Comments RDW (test code = RDW) 14.5 11.5-14.5 [facility]QgirhpcYIAFFPKPIJ9540-54-17 18:46:00 Test Item Value Reference Range Interpretation Comments RBC (test code = RBC) 4.84 4.70-6.10 [facility] HospitalZmwwurkKFQNRACDTQ0340-57-01 18:46:00 Test Item Value Reference Range Interpretation Comments Hgb (test code = Hgb) 14.4 14.0-18.0 [facility] HospitalKnihhmbCUNUPEUNOT0381-44-65 18:46:00 Test Item Value Reference Range Interpretation Comments WBC (test code = WBC) 5.2 3.7-10.4 [facility] HospitalMqzxfaiUKOEDXTAUK5591-59-12 18:46:00 Test Item Value Reference Range Interpretation Comments MCH (test code = MCH) 29.8 pg 27.0-31.0 [facility] HospitalCgixmsyFMAKUFTLCT9172-90-38 18:46:00 Test Item Value Reference Range Interpretation Comments MCV (test code = MCV) 92.0 80.0-94.0 [facility] LancasterTvijoapICLXBDTANA0141-26-14 18:46:00 Test Item Value Reference Range Interpretation Comments Hct (test code = Hct) 44.5 42.0-54.0 [facility] HospitalAwyrdadWCAEGBMNNK6062-25-18 18:46:00 Test Item Value Reference Range Interpretation Comments MCHC (test code = MCHC) 32.4 32.0-36.0 [facility] LancasterPddqhevDTWOOTHXYM0920-92-27 18:46:00 Test Item Value Reference Range Interpretation Comments [place]-Hep C Ab (test Negative *NA*(07/22/14 code = [place]-Hep C 1:46 PM) Ab) [facility] [id number] 18:46:00 Test Item Value Reference Range Interpretation Comments UA Urobilinogen (test code = UA <=1.0 mg/dL 0.1-1.0 Urobilinogen) [facility] [id number] 18:46:00 Test Item Value Reference Range Interpretation Comments UA Sq Epi (test code = UA Sq Epi) None [facility] [id number] 18:46:00 Test Item Value Reference Range Interpretation Comments UA Leuk Est (test Negative (07/22/14 1:46 code = UA Leuk Est) PM) [facility] AND [id number] 18:46:00 Test Item Value Reference Range Interpretation Comments UA Nitrite (test code Negative (07/22/14 1:46 = UA Nitrite) PM) [facility] AND [id number] 18:46:00 Test Item Value Reference Range Interpretation Comments UA Blood (test code = Negative (07/22/14 1:46 UA Blood) PM) [facility] AND [id number] 18:46:00 Test Item Value Reference Range Interpretation Comments UA Ketones (test code = UA Negative mg/dL Ketones) [facility] AND [id number] 18:46:00 Test Item Value Reference Range Interpretation Comments UA Bili (test code = Negative *NA*(07/22/14 UA Bili) 1:46 PM) [facility] AND [id number] 18:46:00 Test Item Value Reference Range Interpretation Comments UA Bacteria (test code = UA Occasional /HPF Bacteria) [facility] AND [id number] 18:46:00 Test Item Value Reference Range Interpretation Comments UA RBC (test code = no gt See_Comment [Automa elizabeth message] The UA RBC) system which ge nerated this result transmit elizabeth reference range : <=2. The reference range was not used to interpr et this result as lukas l/abnormal. [facility] AND [id number] 18:46:00 Test Item Value Reference Range Interpretation Comments UA WBC (test code = 1 See_Comment [Automa elizabeth message] The UA WBC) system which ge nerated this result transmit elizabeth reference range : <=5. The reference range was not used to interpr et this result as lukas l/abnormal. [facility] AND [id number] 18:46:00 Test Item Value Reference Range Interpretation Comments UA Glucose (test code = UA Glucose) 30 mg/dL [facility] AND [id number] 18:46:00 Test Item Value Reference Range Interpretation Comments UA Protein (test code = UA Negative mg/dL Protein) [facility] AND [id number] 18:46:00 Test Item Value Reference Range Interpretation Comments UA pH (test code = UA pH) 6.5 5.0-8.0 [facility] AND [id number] 18:46:00 Test Item Value Reference Range Interpretation Comments UA Turbidity (test code = Clear (07/22/14 1:46 UA Turbidity) PM) [facility] [id number] 18:46:00 Test Item Value Reference Range Interpretation Comments UA Spec Grav (test code = UA Spec Grav) 1.010 [facility] AND [id number] 18:46:00 Test Item Value Reference Range Interpretation Comments UA Color (test code = Light Yellow UA Color) *NA*(07/22/14 1:46 PM) [facility] [id number] 18:46:00 Test Item Value Reference Range Interpretation Comments Magnesium Lvl (test code = Magnesium 1.8 1.8-2.4 Lvl) [facility]YcloemqDWYAFKCILLOX2413-91-91 18:46:00 Test Item Value Reference Range Interpretation Comments AGAP (test code = AGAP) 13.2 10.0-20.0 [facility] MichiganIguyfqiKLCLYPJNRAMN6075-07-86 18:46:00 Test Item Value Reference Range Interpretation Comments B/C Ratio (test code = B/C Ratio) 18 6-25 [facility] MichiganYtarcieSTSJGKNNOIRX9964-79-34 18:46:00 Test Item Value Reference Range Interpretation Comments A/G Ratio (test code = A/G Ratio) 1.1 0.7-1.6 [facility] MichiganHuswkhoREXXYJJCYSMF5741-70-75 18:46:00 Test Item Value Reference Range Interpretation Comments Globulin (test code = Globulin) 3.3 2.0-4.0 [facility] MichiganZzlwfjcSEYZLWITQFKW6681-03-85 18:46:00 Test Item Value Reference Range Interpretation Comments eGFR (test code = eGFR) 99 [facility] MichiganNflhypjTPZQBGAXYRVG1838-78-07 18:46:00 Test Item Value Reference Range Interpretation Comments Calcium Lvl (test code = Calcium Lvl) 9.0 8.5-10.5 [facility]MnhpjbdNPFJENQZMAUW1250-38-60 18:46:00 Test Item Value Reference Range Interpretation Comments Chloride Lvl (test code = Chloride Lvl) 106 95-109 [facility] MichiganKlqppsqDLPYSSLQERVR6551-28-05 18:46:00 Test Item Value Reference Range Interpretation Comments Creatinine Lvl (test code = Creatinine 0.9 0.5-1.4 Lvl) [facility] MichiganBqpsrkuTRVAPHQNBKLB9125-40-44 18:46:00 Test Item Value Reference Range Interpretation Comments Potassium Lvl (test code = Potassium 4.2 3.5-5.1 Lvl) [facility] MichiganWqbmzgvSRDKOUEOARQS4543-78-01 18:46:00 Test Item Value Reference Range Interpretation Comments Sodium Lvl (test code = Sodium Lvl) 139 135-145 [facility] MichiganPhcaaiiHZPUPVEHGOIF7529-72-57 18:46:00 Test Item Value Reference Range Interpretation Comments CO2 (test code = CO2) 24 24-32 [facility] MichiganFygeaapNWMYSAGFUOSO4071-47-35 18:46:00 Test Item Value Reference Range Interpretation Comments BUN (test code = BUN) 16 7-22 [facility] MichiganBrfrixmSSBSJLJFIQAZ5359-57-81 18:46:00 Test Item Value Reference Range Interpretation Comments Glucose Lvl (test code = Glucose Lvl) 141 70-99 [facility] MichiganDbxfoobIAXLXYKZZMOK2508-17-07 18:46:00 Test Item Value Reference Range Interpretation Comments Albumin Lvl (test code = Albumin Lvl) 3.6 3.5-5.0 [facility]KrthqmlRFXOGVKJIDMD3910-86-70 18:46:00 Test Item Value Reference Range Interpretation Comments Alk Phos (test code = Alk Phos) 65 39-136 [facility] MichiganIfybcolYVWYAVBEWNXI9824-49-20 18:46:00 Test Item Value Reference Range Interpretation Comments Bili Total (test code = Bili Total) 0.3 0.2-1.3 [facility] MichiganTpsyxmwPYAJKPDTLRFV0593-07-04 18:46:00 Test Item Value Reference Range Interpretation Comments ALT (test code = ALT) 100 See_Comment [Auto mated message] The system which ge nerated this result transmit elizabeth reference range : <=65. The reference range was not used to interpr et this result as lukas l/abnormal. [facility] MichiganQmzdzykIHZBSWVIIVOM5672-76-68 18:46:00 Test Item Value Reference Range Interpretation Comments AST (test code = AST) 53 See_Comment [Auto mated message] The system which ge nerated this result transmit elizabeth reference range : <=37. The reference range was not used to interpr et this result as lukas l/abnormal. [facility] MichiganQnizdeaNWFKYIJKCHJR2874-67-12 18:46:00 Test Item Value Reference Range Interpretation Comments Total Protein (test code = Total 6.9 6.4-8.4 Protein) [facility] HospitalJrdoeazDINJSLRUOI9566-88-86 18:46:00 Test Item Value Reference Range Interpretation Comments Eosinophils (test code = 4.2 See_Comment [A utomated message] The Eosinophils) system which ge nerated this result tra nsmitted reference range : <=4.0. The reference r mitra was not used to int erpret this result as normal/abnormal . [facility] HospitalBlhnmnlWXASOJYEUY9655-04-62 18:46:00 Test Item Value Reference Range Interpretation Comments Segs (test code = Segs) 56.4 45.0-75.0 [facility] HospitalHpibknsPUPBBYNYMW7660-43-34 18:46:00 Test Item Value Reference Range Interpretation Comments Monocytes (test code = Monocytes) 10.3 2.0-12.0 [facility] HospitalWtpzxqoHMVFOTSMYL6542-27-90 18:46:00 Test Item Value Reference Range Interpretation Comments Lymphocytes (test code = Lymphocytes) 28.0 20.0-40.0 [facility] HospitalAzdipwjEOORALKILB9986-71-01 18:46:00 Test Item Value Reference Range Interpretation Comments Monocytes # (test code 0.5 See_Comment [Aut omated message] The = Monocytes #) system which generated this result tra nsmitted reference range : <=0.8. The reference r mitra was not used to int erpret this result as normal/abnormal . [facility] HospitalDeopthbPDRPTRUCCF0552-88-34 18:46:00 Test Item Value Reference Range Interpretation Comments Basophils (test code = 1.1 See_Comment [Aut omated message] The Basophils) system which ge nerated this result tra nsmitted reference range : <=1.0. The reference r mitra was not used to int erpret this result as normal/abnormal . [facility] HospitalLmdebqfSKEACDAONB0309-84-19 18:46:00 Test Item Value Reference Range Interpretation Comments Lymphocytes # (test code = Lymphocytes 1.5 1.0-5.5 #) [facility] HospitalWwkssknTBXQIREJKH4590-42-67 18:46:00 Test Item Value Reference Range Interpretation Comments Segs-Bands # (test code = Segs-Bands #) 2.9 1.5-8.1 [facility] HospitalTyzosrgZCPKQRBUZP5592-11-97 18:46:00 Test Item Value Reference Range Interpretation Comments Eosinophils # (test code 0.2 See_Comment [A utomated message] The = Eosinophils #) system whic h generated this result tra nsmitted reference range : <=0.5. The reference r mitra was not used to int erpret this result as normal/abnormal . [facility] HospitalBoqbjvyKKHEAXQSKR6739-02-62 18:46:00 Test Item Value Reference Range Interpretation Comments Basophils # (test code 0.1 See_Comment [Aut omated message] The = Basophils #) system which generated this result tra nsmitted reference range : <=0.2. The reference r mitra was not used to int erpret this result as normal/abnormal . [facility] HospitalYuebufwBRACMZNTGU1419-88-69 18:46:00 Test Item Value Reference Range Interpretation Comments PT (test code = PT) 11.2 s 12.0-14.7 [facility] HospitalQgwukghMQLEYQCBOF4610-28-30 18:46:00 Test Item Value Reference Range Interpretation Comments INR (test code = INR) 0.82 0.85-1.17 [facility] HospitalVrlwxqzPGTBEPNAQX8615-83-89 18:46:00 Test Item Value Reference Range Interpretation Comments PTT (test code = PTT) 28.6 s 22.9-35.8 [facility] HospitalLcmzyvtPOIXHVRPCN6913-48-62 18:46:00 Test Item Value Reference Range Interpretation Comments MPV (test code = MPV) 8.1 7.4-10.4 [facility] HospitalTjuayxnSPIDNSWKLE0437-53-71 18:46:00 Test Item Value Reference Range Interpretation Comments Platelet (test code = Platelet) 301 133-450 [facility] HospitalBwlynzyVWNADLEUSI1661-53-40 18:46:00 Test Item Value Reference Range Interpretation Comments RDW (test code = RDW) 14.5 11.5-14.5 [facility] HospitalFjhseomFFMXKBKOVJ0809-20-12 18:46:00 Test Item Value Reference Range Interpretation Comments RBC (test code = RBC) 4.84 4.70-6.10 [facility] HospitalUjfqcvmOFARUTVVOF2237-16-50 18:46:00 Test Item Value Reference Range Interpretation Comments Hgb (test code = Hgb) 14.4 14.0-18.0 [facility] HospitalWsisgslKFSXSTFUVQ5498-16-70 18:46:00 Test Item Value Reference Range Interpretation Comments WBC (test code = WBC) 5.2 3.7-10.4 [facility] UorfgqoCARQUNTDMA8431-07-33 18:46:00 Test Item Value Reference Range Interpretation Comments MCH (test code = MCH) 29.8 pg 27.0-31.0 [facility]SwjbmupVUDQYMQYHQ6476-61-99 18:46:00 Test Item Value Reference Range Interpretation Comments MCV (test code = MCV) 92.0 80.0-94.0 [facility] LancasterHatbummPRPDDVGKXR3087-62-32 18:46:00 Test Item Value Reference Range Interpretation Comments Hct (test code = Hct) 44.5 42.0-54.0 [facility] HospitalAjxbixxCVEGCUNIBS2077-86-29 18:46:00 Test Item Value Reference Range Interpretation Comments MCHC (test code = MCHC) 32.4 32.0-36.0 [facility] LancasterTbaqewgMAZPAMZHHX0739-93-83 18:46:00 Test Item Value Reference Range Interpretation Comments [place]-Hep C Ab (test Negative *NA*(07/22/14 code = [place]-Hep C 1:46 PM) Ab) [facility] AND [id number] 18:46:00 Test Item Value Reference Range Interpretation Comments UA Urobilinogen (test code = UA <=1.0 mg/dL 0.1-1.0 Urobilinogen) [facility] AND [id number] 18:46:00 Test Item Value Reference Range Interpretation Comments UA Sq Epi (test code = UA Sq Epi) None Seen [facility] AND [id number] 18:46:00 Test Item Value Reference Range Interpretation Comments UA Leuk Est (test Negative (07/22/14 1:46 code = UA Leuk Est) PM) [facility] [id number] 18:46:00 Test Item Value Reference Range Interpretation Comments UA Nitrite (test code Negative (07/22/14 1:46 = UA Nitrite) PM) [facility] [id number] 18:46:00 Test Item Value Reference Range Interpretation Comments UA Blood (test code = Negative (07/22/14 1:46 UA Blood) PM) [facility] [id number] 18:46:00 Test Item Value Reference Range Interpretation Comments UA Ketones (test code = UA Negative mg/dL Ketones) [facility] AND [id number] 18:46:00 Test Item Value Reference Range Interpretation Comments UA Bili (test code = Negative *NA*(07/22/14 UA Bili) 1:46 PM) [facility] AND [id number] 18:46:00 Test Item Value Reference Range Interpretation Comments UA Bacteria (test code = UA Occasional /HPF Bacteria) [facility] AND [id number] 18:46:00 Test Item Value Reference Range Interpretation Comments UA RBC (test code = no gt See_Comment [Automa elizabeth message] The UA RBC) system which ge nerated this result transmit elizabeth reference range : <=2. The reference range was not used to interpr et this result as lukas l/abnormal. [facility] AND [id number] 18:46:00 Test Item Value Reference Range Interpretation Comments UA WBC (test code = 1 See_Comment [Automa elizabeth message] The UA WBC) system which ge nerated this result transmit elizabeth reference range : <=5. The reference range was not used to interpr et this result as lukas l/abnormal. [facility] AND [id number] 18:46:00 Test Item Value Reference Range Interpretation Comments UA Glucose (test code = UA Glucose) 30 mg/dL [facility] AND [id number] 18:46:00 Test Item Value Reference Range Interpretation Comments UA Protein (test code = UA Negative mg/dL Protein) [facility] AND [id number] 18:46:00 Test Item Value Reference Range Interpretation Comments UA pH (test code = UA pH) 6.5 5.0-8.0 [facility] AND [id number] 18:46:00 Test Item Value Reference Range Interpretation Comments UA Turbidity (test code = Clear (07/22/14 1:46 UA Turbidity) PM) [facility] AND [id number] 18:46:00 Test Item Value Reference Range Interpretation Comments UA Spec Grav (test code = UA Spec Grav) 1.010 [facility] AND [id number] 18:46:00 Test Item Value Reference Range Interpretation Comments UA Color (test code = Light Yellow UA Color) *NA*(07/22/14 1:46 PM) [facility]2015-06-09 18:46:00 Test Item Value Reference Range Interpretation Comments Magnesium Lvl (test code = Magnesium 1.8 1.8-2.4 Lvl) [facility]TlzoapjQDBLLWHRMDVR3018-75-99 18:46:00 Test Item Value Reference Range Interpretation Comments AGAP (test code = AGAP) 13.2 10.0-20.0 [facility]WptmgnlOBHYRQQIDTJL2305-67-38 18:46:00 Test Item Value Reference Range Interpretation Comments B/C Ratio (test code = B/C Ratio) 18 6-25 [facility] MichiganGdcfamxITMTBFXZXPYN9634-03-90 18:46:00 Test Item Value Reference Range Interpretation Comments A/G Ratio (test code = A/G Ratio) 1.1 0.7-1.6 [facility] MichiganJqzkawyGFOTOXEKVSKR5828-10-50 18:46:00 Test Item Value Reference Range Interpretation Comments Globulin (test code = Globulin) 3.3 2.0-4.0 [facility] MichiganEkeyhifLROTRDXDETST1724-07-51 18:46:00 Test Item Value Reference Range Interpretation Comments eGFR (test code = eGFR) 99 [facility] MichiganIwdiaegSHAATUPOZHHC8022-30-32 18:46:00 Test Item Value Reference Range Interpretation Comments Calcium Lvl (test code = Calcium Lvl) 9.0 8.5-10.5 [facility] MichiganGrbvqelWORNYHQUWCAM0683-77-97 18:46:00 Test Item Value Reference Range Interpretation Comments Chloride Lvl (test code = Chloride Lvl) 106 95-109 [facility] MichiganJdrlchjJTXICEUXZUUI2454-05-73 18:46:00 Test Item Value Reference Range Interpretation Comments Creatinine Lvl (test code = Creatinine 0.9 0.5-1.4 Lvl) [facility] MichiganBkwjsynOHTQXDUSMEMI8977-67-73 18:46:00 Test Item Value Reference Range Interpretation Comments Potassium Lvl (test code = Potassium 4.2 3.5-5.1 Lvl) [facility] MichiganSqjpxdnHHWORKJHKEGI7688-91-80 18:46:00 Test Item Value Reference Range Interpretation Comments Sodium Lvl (test code = Sodium Lvl) 139 135-145 [facility] MichiganNzgcngzTZXCHWUNTOBW1626-81-71 18:46:00 Test Item Value Reference Range Interpretation Comments CO2 (test code = CO2) 24 24-32 [facility] MichiganOobaytdNYOITENDIJIQ5853-61-74 18:46:00 Test Item Value Reference Range Interpretation Comments BUN (test code = BUN) 16 7-22 [facility] MichiganMufowsbNEYHODIVQXCC2424-71-60 18:46:00 Test Item Value Reference Range Interpretation Comments Glucose Lvl (test code = Glucose Lvl) 141 70-99 [facility] MichiganRmufnbuRTBNZWLEIBAE6250-62-02 18:46:00 Test Item Value Reference Range Interpretation Comments Albumin Lvl (test code = Albumin Lvl) 3.6 3.5-5.0 [facility] MichiganUevvayqXAIUGFTKBHZA2626-44-47 18:46:00 Test Item Value Reference Range Interpretation Comments Alk Phos (test code = Alk Phos) 65 39-136 [facility] MichiganVayfdbgITSYRWFIRQFO3237-18-98 18:46:00 Test Item Value Reference Range Interpretation Comments Bili Total (test code = Bili Total) 0.3 0.2-1.3 [facility] MichiganHuaivfmPLTSGVMYGSXR2109-41-82 18:46:00 Test Item Value Reference Range Interpretation Comments ALT (test code = ALT) 100 See_Comment [Auto mated message] The system which ge nerated this result transmit elizabeth reference range : <=65. The reference range was not used to interpr et this result as lukas l/abnormal. [facility] MichiganOtgssclSEVNENUZEQVJ7097-68-52 18:46:00 Test Item Value Reference Range Interpretation Comments AST (test code = AST) 53 See_Comment [Auto mated message] The system which ge nerated this result transmit elizabeth reference range : <=37. The reference range was not used to interpr et this result as lukas l/abnormal. [facility] MichiganWuubpebSQJTDJAXGEHC8282-97-41 18:46:00 Test Item Value Reference Range Interpretation Comments Total Protein (test code = Total 6.9 6.4-8.4 Protein) [facility] HospitalLqyfyztTRFFXLIDGZ4714-05-72 18:46:00 Test Item Value Reference Range Interpretation Comments Eosinophils (test code = 4.2 See_Comment [A utomated message] The Eosinophils) system which ge nerated this result tra nsmitted reference range : <=4.0. The reference r mitra was not used to int erpret this result as normal/abnormal . [facility] HospitalUzqvxmgZFESXWDZRQ3150-81-08 18:46:00 Test Item Value Reference Range Interpretation Comments Segs (test code = Segs) 56.4 45.0-75.0 [facility] HospitalOaywphoVVMLNINTCU8408-26-37 18:46:00 Test Item Value Reference Range Interpretation Comments Monocytes (test code = Monocytes) 10.3 2.0-12.0 [facility] HospitalCyiubroNAGJFRNKOM9720-04-82 18:46:00 Test Item Value Reference Range Interpretation Comments Lymphocytes (test code = Lymphocytes) 28.0 20.0-40.0 [facility] HospitalBjewduwBXOASQTWTA7754-31-17 18:46:00 Test Item Value Reference Range Interpretation Comments Monocytes # (test code 0.5 See_Comment [Aut omated message] The = Monocytes #) system which generated this result tra nsmitted reference range : <=0.8. The reference r mitra was not used to int erpret this result as normal/abnormal . [facility] HospitalCfmlfbxDWVNDVDEZH0227-79-23 18:46:00 Test Item Value Reference Range Interpretation Comments Basophils (test code = 1.1 See_Comment [Aut omated message] The Basophils) system which ge nerated this result tra nsmitted reference range : <=1.0. The reference r mitra was not used to int erpret this result as normal/abnormal . [facility] HospitalHghmprrPBHBCBJNHL9425-59-97 18:46:00 Test Item Value Reference Range Interpretation Comments Lymphocytes # (test code = Lymphocytes 1.5 1.0-5.5 #) [facility] HospitalHzxpaviHJHUYFUDTZ3393-46-27 18:46:00 Test Item Value Reference Range Interpretation Comments Segs-Bands # (test code = Segs-Bands #) 2.9 1.5-8.1 [facility] HospitalOepehonTJXWUULNQO6200-77-93 18:46:00 Test Item Value Reference Range Interpretation Comments Eosinophils # (test code 0.2 See_Comment [A utomated message] The = Eosinophils #) system [facility] generated this result tra nsmitted reference range : <=0.5. The reference r mitra was not used to int erpret this result as normal/abnormal . [facility] HospitalSreytlnFXOUCOBYIB4040-08-67 18:46:00 Test Item Value Reference Range Interpretation Comments Basophils # (test code 0.1 See_Comment [Aut omated message] The = Basophils #) system which generated this result tra nsmitted reference range : <=0.2. The reference r mitra was not used to int erpret this result as normal/abnormal . [facility] HospitalPfsrrltWTISIDQWAK2528-71-01 18:46:00 Test Item Value Reference Range Interpretation Comments PT (test code = PT) 11.2 s 12.0-14.7 [facility] HospitalDgqeobeCNREEAIDHG3146-23-59 18:46:00 Test Item Value Reference Range Interpretation Comments INR (test code = INR) 0.82 0.85-1.17 [facility] HospitalUbwmrwgPQCIQYXMJW5472-76-15 18:46:00 Test Item Value Reference Range Interpretation Comments PTT (test code = PTT) 28.6 s 22.9-35.8 [facility] HospitalPtpiwefKCXIXEWHXG4294-86-36 18:46:00 Test Item Value Reference Range Interpretation Comments MPV (test code = MPV) 8.1 7.4-10.4 [facility] HospitalUwzlsfaCEZNHVVMTN7112-82-79 18:46:00 Test Item Value Reference Range Interpretation Comments Platelet (test code = Platelet) 301 133-450 [facility] HospitalBreycwsZEYPJGZJOB3046-92-03 18:46:00 Test Item Value Reference Range Interpretation Comments RDW (test code = RDW) 14.5 11.5-14.5 [facility] HospitalAgimwkeFZIIUZJCSD1505-73-90 18:46:00 Test Item Value Reference Range Interpretation Comments RBC (test code = RBC) 4.84 4.70-6.10 [facility] HospitalTtymcjkYUUXVCVAHO3876-60-54 18:46:00 Test Item Value Reference Range Interpretation Comments Hgb (test code = Hgb) 14.4 14.0-18.0 [facility] Hospit[id number] 18:46:00 Test Item Value Reference Range Interpretation Comments WBC (test code = WBC) 5.2 3.7-10.4 [facility] HospitalWmrncizKLRGAZZBVC7622-35-96 18:46:00 Test Item Value Reference Range Interpretation Comments MCH (test code = MCH) 29.8 pg 27.0-31.0 [facility] HospitalXzhcilfBSCJBROEUM4272-52-11 18:46:00 Test Item Value Reference Range Interpretation Comments MCV (test code = MCV) 92.0 80.0-94.0 [facility] HospitalPjkkhzoTSRSZHQZLF7445-33-57 18:46:00 Test Item Value Reference Range Interpretation Comments Hct (test code = Hct) 44.5 42.0-54.0 [facility]OnszesgUDINCFKJOR5021-32-52 18:46:00 Test Item Value Reference Range Interpretation Comments MCHC (test code = MCHC) 32.4 32.0-36.0 [facility] CenterZrnvvncYDBIHSABYT7958-59-41 18:46:00 Test Item Value Reference Range Interpretation Comments [place]-Hep C Ab (test Negative *NA*(07/22/14 code = [place]-Hep C 1:46 PM) Ab) [facility] AND [id number] 18:46:00 Test Item Value Reference Range Interpretation Comments UA Urobilinogen (test code = UA <=1.0 mg/dL 0.1-1.0 Urobilinogen) [facility] AND [id number] 18:46:00 Test Item Value Reference Range Interpretation Comments UA Sq Epi (test code = UA Sq Epi) None Seen [facility] AND [id number] 18:46:00 Test Item Value Reference Range Interpretation Comments UA Leuk Est (test Negative (07/22/14 1:46 code = UA Leuk Est) PM) [facility] AND [id number] 18:46:00 Test Item Value Reference Range Interpretation Comments UA Nitrite (test code Negative (07/22/14 1:46 = UA Nitrite) PM) [facility] AND [id number] 18:46:00 Test Item Value Reference Range Interpretation Comments UA Blood (test code = Negative (07/22/14 1:46 UA Blood) PM) [facility] AND [id number] 18:46:00 Test Item Value Reference Range Interpretation Comments UA Ketones (test code = UA Negative mg/dL Ketones) [facility] AND [id number] 18:46:00 Test Item Value Reference Range Interpretation Comments UA Bili (test code = Negative *NA*(07/22/14 UA Bili) 1:46 PM) [facility] AND [id number] 18:46:00 Test Item Value Reference Range Interpretation Comments UA Bacteria (test code = UA Occasional /HPF Bacteria) [facility] AND [id number] 18:46:00 Test Item Value Reference Range Interpretation Comments UA RBC (test code = no gt See_Comment [Automa elizabeth message] The UA RBC) system which ge nerated this result transmit elizabeth reference range : <=2. The reference range was not used to interpr et this result as lukas l/abnormal. [facility] AND [id number] 18:46:00 Test Item Value Reference Range Interpretation Comments UA WBC (test code = 1 See_Comment [Automa elizabeth message] The UA WBC) system which ge nerated this result transmit elizabeth reference range : <=5. The reference range was not used to interpr et this result as lukas l/abnormal. [facility]ann[id number] 18:46:00 Test Item Value Reference Range Interpretation Comments UA Glucose (test code = UA Glucose) 30 mg/dL [facility] AND [id number] 18:46:00 Test Item Value Reference Range Interpretation Comments UA Protein (test code = UA Negative mg/dL Protein) [facility] AND [id number] 18:46:00 Test Item Value Reference Range Interpretation Comments UA pH (test code = UA pH) 6.5 5.0-8.0 [facility] AND [id number] 18:46:00 Test Item Value Reference Range Interpretation Comments UA Turbidity (test code = Clear (07/22/14 1:46 UA Turbidity) PM) [facility] AND [id number] 18:46:00 Test Item Value Reference Range Interpretation Comments UA Spec Grav (test code = UA Spec Grav) 1.010 [facility] AND [id number] 18:46:00 Test Item Value Reference Range Interpretation Comments UA Color (test code = Light Yellow UA Color) *NA*(07/22/14 1:46 PM) [facility] CenterannCHEM [id number] 18:46:00 Test Item Value Reference Range Interpretation Comments Magnesium Lvl (test code = Magnesium 1.8 1.8-2.4 Lvl) [facility] CenterNoxwuafLXLUPAGPMWWI2286-72-09 18:46:00 Test Item Value Reference Range Interpretation Comments AGAP (test code = AGAP) 13.2 10.0-20.0 [facility]JjyizfhNRVEXDWLYPBC5895-32-29 18:46:00 Test Item Value Reference Range Interpretation Comments B/C Ratio (test code = B/C Ratio) 18 6-25 [facility]XleknuyPIGMGLOBXFXH8136-12-88 18:46:00 Test Item Value Reference Range Interpretation Comments A/G Ratio (test code = A/G Ratio) 1.1 0.7-1.6 [id number] 18:46:00 Test Item Value Reference Range Interpretation Comments Globulin (test code = Globulin) 3.3 2.0-4.0 [facility]XykmjbtYLIJGFRSYPQY3199-48-75 18:46:00 Test Item Value Reference Range Interpretation Comments eGFR (test code = eGFR) 99 [facility] MichiganWqtztdaGFNAZWBVWRDR2827-89-96 18:46:00 Test Item Value Reference Range Interpretation Comments Calcium Lvl (test code = Calcium Lvl) 9.0 8.5-10.5 [facility]KqsrqamOCZAIYDBFAIR0176-24-34 18:46:00 Test Item Value Reference Range Interpretation Comments Chloride Lvl (test code = Chloride Lvl) 106 95-109 [facility] MichiganOohghbkTCNGHYHYTIXM1829-21-22 18:46:00 Test Item Value Reference Range Interpretation Comments Creatinine Lvl (test code = Creatinine 0.9 0.5-1.4 Lvl) [facility] MichiganNlomghaWYMBZKJNJQOO1516-55-84 18:46:00 Test Item Value Reference Range Interpretation Comments Potassium Lvl (test code = Potassium 4.2 3.5-5.1 Lvl) [facility] MichiganWpqgskgURQZUKFCPNMD8567-27-66 18:46:00 Test Item Value Reference Range Interpretation Comments Sodium Lvl (test code = Sodium Lvl) 139 135-145 [facility]MvhkbrjMIYGXWNGTCYV0826-76-44 18:46:00 Test Item Value Reference Range Interpretation Comments CO2 (test code = CO2) 24 24-32 [facility] MichiganDcviegmHVVZGCNMZPJH8377-78-96 18:46:00 Test Item Value Reference Range Interpretation Comments BUN (test code = BUN) 16 7-22 [facility] MichiganArvqbnrIOMSUYIZMDPL7952-01-82 18:46:00 Test Item Value Reference Range Interpretation Comments Glucose Lvl (test code = Glucose Lvl) 141 70-99 [facility]PevfufvMINTGCMWTWRX4627-28-46 18:46:00 Test Item Value Reference Range Interpretation Comments Albumin Lvl (test code = Albumin Lvl) 3.6 3.5-5.0 [facility] MichiganDgxyvsbGPQZWATCQHPN9060-41-86 18:46:00 Test Item Value Reference Range Interpretation Comments Alk Phos (test code = Alk Phos) 65 39-136 [facility] MichiganMdmhzlgQPGDZKFWKPWU2045-56-67 18:46:00 Test Item Value Reference Range Interpretation Comments Bili Total (test code = Bili Total) 0.3 0.2-1.3 [facility] MichiganRlgwccdGQOVOLZTCABC8266-51-47 18:46:00 Test Item Value Reference Range Interpretation Comments ALT (test code = ALT) 100 See_Comment [Auto mated message] The system which ge nerated this result transmit elizabeth reference range : <=65. The reference range was not used to interpr et this result as lukas l/abnormal. [facility] MichiganOtawjyfAFBXNPGSQWBJ6702-08-55 18:46:00 Test Item Value Reference Range Interpretation Comments AST (test code = AST) 53 See_Comment [Auto mated message] The system which ge nerated this result transmit elizabeth reference range : <=37. The reference range was not used to interpr et this result as lukas l/abnormal. [facility] MichiganFrcmikvISUUDGNZMGME7171-86-27 18:46:00 Test Item Value Reference Range Interpretation Comments Total Protein (test code = Total 6.9 6.4-8.4 Protein) [facility] HospitalZjigurgJUZJJNAYKU5715-04-18 18:46:00 Test Item Value Reference Range Interpretation Comments Eosinophils (test code = 4.2 See_Comment [A utomated message] The Eosinophils) system which ge nerated this result tra nsmitted reference range : <=4.0. The reference r mitra was not used to int erpret this result as normal/abnormal . [facility] HospitalOsotbaiGQWUFSJAWK8511-68-89 18:46:00 Test Item Value Reference Range Interpretation Comments Segs (test code = Segs) 56.4 45.0-75.0 [facility] HospitalVqsvamlMPLFXZNYIK9153-01-52 18:46:00 Test Item Value Reference Range Interpretation Comments Monocytes (test code = Monocytes) 10.3 2.0-12.0 [facility] HospitalDjswnsdMPVMRXURZU3288-81-22 18:46:00 Test Item Value Reference Range Interpretation Comments Lymphocytes (test code = Lymphocytes) 28.0 20.0-40.0 [facility] HospitalFjffrleDHTATXXGPR0912-49-22 18:46:00 Test Item Value Reference Range Interpretation Comments Monocytes # (test code 0.5 See_Comment [Aut omated message] The = Monocytes #) system which generated this result tra nsmitted reference range : <=0.8. The reference r mitra was not used to int erpret this result as normal/abnormal . [facility] HospitalDasvewdUOUKVWQXOJ7076-99-76 18:46:00 Test Item Value Reference Range Interpretation Comments Basophils (test code = 1.1 See_Comment [Aut omated message] The Basophils) system which ge nerated this result tra nsmitted reference range : <=1.0. The reference r mitra was not used to int erpret this result as normal/abnormal . [facility] HospitalDfpfrhxANGIUHTENI9461-97-49 18:46:00 Test Item Value Reference Range Interpretation Comments Lymphocytes # (test code = Lymphocytes 1.5 1.0-5.5 #) [facility] HospitalVbiegluEGOCRCZJEW3768-19-44 18:46:00 Test Item Value Reference Range Interpretation Comments Segs-Bands # (test code = Segs-Bands #) 2.9 1.5-8.1 [facility] HospitalNqdnefrTJEABABUFD2172-94-35 18:46:00 Test Item Value Reference Range Interpretation Comments Eosinophils # (test code 0.2 See_Comment [A utomated message] The = Eosinophils #) system whic h generated this result tra nsmitted reference range : <=0.5. The reference r mitra was not used to int erpret this result as normal/abnormal . [facility] HospitalAwjgpugVCDAEDXCYB3295-41-60 18:46:00 Test Item Value Reference Range Interpretation Comments Basophils # (test code 0.1 See_Comment [Aut omated message] The = Basophils #) system which generated this result tra nsmitted reference range : <=0.2. The reference r mitra was not used to int erpret this result as normal/abnormal . [facility] HospitalWdghwkrXXOSOHKEEU3807-38-65 18:46:00 Test Item Value Reference Range Interpretation Comments PT (test code = PT) 11.2 s 12.0-14.7 [facility] HospitalImdwzzcIMTATIMCQN4546-01-82 18:46:00 Test Item Value Reference Range Interpretation Comments INR (test code = INR) 0.82 0.85-1.17 [facility] HospitalTfrczjcUIDBBWIILJ5309-14-79 18:46:00 Test Item Value Reference Range Interpretation Comments PTT (test code = PTT) 28.6 s 22.9-35.8 [facility]FcwfbqbTGMYOQSACF0373-57-48 18:46:00 Test Item Value Reference Range Interpretation Comments MPV (test code = MPV) 8.1 7.4-10.4 [facility] HospitalSbfneazIKHLAIVOMI3992-70-85 18:46:00 Test Item Value Reference Range Interpretation Comments Platelet (test code = Platelet) 301 133-450 [facility] HospitalHaqbjoeUVZMKFRBXH5825-58-65 18:46:00 Test Item Value Reference Range Interpretation Comments RDW (test code = RDW) 14.5 11.5-14.5 [facility] HospitalQnpwqmeOIROGIZRVQ1894-71-41 18:46:00 Test Item Value Reference Range Interpretation Comments RBC (test code = RBC) 4.84 4.70-6.10 [facility] HospitalGdsotmxEGMYTGYXGU8676-26-99 18:46:00 Test Item Value Reference Range Interpretation Comments Hgb (test code = Hgb) 14.4 14.0-18.0 [facility] HospitalRzbktfrWQUDGRHWDU6809-63-77 18:46:00 Test Item Value Reference Range Interpretation Comments WBC (test code = WBC) 5.2 3.7-10.4 [facility] HospitalXdsmvkkUJDOVMQSVQ4441-69-16 18:46:00 Test Item Value Reference Range Interpretation Comments MCH (test code = MCH) 29.8 pg 27.0-31.0 [facility] HospitalFszoiwxWJIINXDKXF0562-76-06 18:46:00 Test Item Value Reference Range Interpretation Comments MCV (test code = MCV) 92.0 80.0-94.0 [facility] LancasterQthshovRBVFXSHTFK5020-71-13 18:46:00 Test Item Value Reference Range Interpretation Comments Hct (test code = Hct) 44.5 42.0-54.0 [facility] HospitalWgklyqbBARRPMJAAC9040-70-52 18:46:00 Test Item Value Reference Range Interpretation Comments MCHC (test code = MCHC) 32.4 32.0-36.0 [facility] LancasterQgaogmwRNRURJMUPX6424-33-84 18:46:00 Test Item Value Reference Range Interpretation Comments [place]-Hep C Ab (test Negative *NA*(07/22/14 code = [place]-Hep C 1:46 PM) Ab) [facility] [id number] 18:46:00 Test Item Value Reference Range Interpretation Comments UA Urobilinogen (test code = UA <=1.0 mg/dL 0.1-1.0 Urobilinogen) [facility] AND [id number] 18:46:00 Test Item Value Reference Range Interpretation Comments UA Sq Epi (test code = UA Sq Epi) None Seen [facility] AND [id number] 18:46:00 Test Item Value Reference Range Interpretation Comments UA Leuk Est (test Negative (07/22/14 1:46 code = UA Leuk Est) PM) [facility] AND [id number] 18:46:00 Test Item Value Reference Range Interpretation Comments UA Nitrite (test code Negative (07/22/14 1:46 = UA Nitrite) PM) [facility] AND [id number] 18:46:00 Test Item Value Reference Range Interpretation Comments UA Blood (test code = Negative (07/22/14 1:46 UA Blood) PM) [facility] AND [id number] 18:46:00 Test Item Value Reference Range Interpretation Comments UA Ketones (test code = UA Negative mg/dL Ketones) [facility] AND [id number] 18:46:00 Test Item Value Reference Range Interpretation Comments UA Bili (test code = Negative *NA*(07/22/14 UA Bili) 1:46 PM) [facility] AND [id number] 18:46:00 Test Item Value Reference Range Interpretation Comments UA Bacteria (test code = UA Occasional /HPF Bacteria) [facility] AND [id number] 18:46:00 Test Item Value Reference Range Interpretation Comments UA RBC (test code = no gt See_Comment [Automa elizabeth message] The UA RBC) system which ge nerated this result transmit elizabeth reference range : <=2. The reference range was not used to interpr et this result as lukas l/abnormal. [facility] AND [id number] 18:46:00 Test Item Value Reference Range Interpretation Comments UA WBC (test code = 1 See_Comment [Automa elizabeth message] The UA WBC) system which ge nerated this result transmit elizabeth reference range : <=5. The reference range was not used to interpr et this result as lukas l/abnormal. [facility] AND [id number] 18:46:00 Test Item Value Reference Range Interpretation Comments UA Glucose (test code = UA Glucose) 30 mg/dL [facility] AND [id number] 18:46:00 Test Item Value Reference Range Interpretation Comments UA Protein (test code = UA Negative mg/dL Protein) [facility] AND [id number] 18:46:00 Test Item Value Reference Range Interpretation Comments UA pH (test code = UA pH) 6.5 5.0-8.0 [facility] AND [id number] 18:46:00 Test Item Value Reference Range Interpretation Comments UA Turbidity (test code = Clear (07/22/14 1:46 UA Turbidity) PM) [facility] AND [id number] 18:46:00 Test Item Value Reference Range Interpretation Comments UA Spec Grav (test code = UA Spec Grav) 1.010 [facility] AND [id number] 18:46:00 Test Item Value Reference Range Interpretation Comments UA Color (test code = Light Yellow UA Color) *NA*(07/22/14 1:46 PM) [facility] [id number] 18:46:00 Test Item Value Reference Range Interpretation Comments Magnesium Lvl (test code = Magnesium 1.8 1.8-2.4 Lvl) [facility]LebzhogQZFCABEWYJOI8707-54-45 18:46:00 Test Item Value Reference Range Interpretation Comments AGAP (test code = AGAP) 13.2 10.0-20.0 [facility] MichiganCajyivhCQEADTXUMVVV6678-65-91 18:46:00 Test Item Value Reference Range Interpretation Comments B/C Ratio (test code = B/C Ratio) 18 6-25 [facility] MichiganBjhjrwkFLYUBUKJGWVX6463-41-78 18:46:00 Test Item Value Reference Range Interpretation Comments A/G Ratio (test code = A/G Ratio) 1.1 0.7-1.6 [facility] MichiganEdsahepCXVILBAFFTGI5937-29-90 18:46:00 Test Item Value Reference Range Interpretation Comments Globulin (test code = Globulin) 3.3 2.0-4.0 [facility] MichiganExkhgiwFHEJMPMUTGXD1712-18-54 18:46:00 Test Item Value Reference Range Interpretation Comments eGFR (test code = eGFR) 99 [facility] MichiganBaqqkykEBELXBXEBVIT5170-17-64 18:46:00 Test Item Value Reference Range Interpretation Comments Calcium Lvl (test code = Calcium Lvl) 9.0 8.5-10.5 [facility] MichiganXpoyeliEEQFGXHBUWAO3971-05-10 18:46:00 Test Item Value Reference Range Interpretation Comments Chloride Lvl (test code = Chloride Lvl) 106 95-109 [facility] MichiganTyotmwvCHQKGMTQYERZ0185-32-67 18:46:00 Test Item Value Reference Range Interpretation Comments Creatinine Lvl (test code = Creatinine 0.9 0.5-1.4 Lvl) [facility] MichiganNwjibjrMVSLIUIKAZAV7892-59-24 18:46:00 Test Item Value Reference Range Interpretation Comments Potassium Lvl (test code = Potassium 4.2 3.5-5.1 Lvl) [facility] MichiganArfogtyPXLXBTVKOXQS5355-07-85 18:46:00 Test Item Value Reference Range Interpretation Comments Sodium Lvl (test code = Sodium Lvl) 139 135-145 [facility] MichiganMsazoddJANVLLKTMMVJ8229-76-43 18:46:00 Test Item Value Reference Range Interpretation Comments CO2 (test code = CO2) 24 24-32 [facility] MichiganAjtlsueJTHQTYCWHUQG4419-01-79 18:46:00 Test Item Value Reference Range Interpretation Comments BUN (test code = BUN) 16 7-22 [facility] MichiganGhwkbhjQQUYVIMKYQXS2410-34-89 18:46:00 Test Item Value Reference Range Interpretation Comments Glucose Lvl (test code = Glucose Lvl) 141 70-99 [facility] MichiganQtmcowyVMKJCDAMFPHT1209-18-84 18:46:00 Test Item Value Reference Range Interpretation Comments Albumin Lvl (test code = Albumin Lvl) 3.6 3.5-5.0 [facility] MichiganOtufxksSXWWLJSXYPMS0042-31-95 18:46:00 Test Item Value Reference Range Interpretation Comments Alk Phos (test code = Alk Phos) 65 39-136 [facility] MichiganSyspfycSNJWZYSAEQZU2887-10-36 18:46:00 Test Item Value Reference Range Interpretation Comments Bili Total (test code = Bili Total) 0.3 0.2-1.3 [facility] MichiganVnuzylwHEVGBLGCLXSA3247-52-20 18:46:00 Test Item Value Reference Range Interpretation Comments ALT (test code = ALT) 100 See_Comment [Auto mated message] The system which ge nerated this result transmit elizabeth reference range : <=65. The reference range was not used to interpr et this result as lukas l/abnormal. [facility] MichiganCjrfwfsDABNIHLRIMHZ9817-14-98 18:46:00 Test Item Value Reference Range Interpretation Comments AST (test code = AST) 53 See_Comment [Auto mated message] The system which ge nerated this result transmit elizabeth reference range : <=37. The reference range was not used to interpr et this result as lukas l/abnormal. [facility] MichiganGzsvckdBMWTWLSXRABH1831-64-60 18:46:00 Test Item Value Reference Range Interpretation Comments Total Protein (test code = Total 6.9 6.4-8.4 Protein) [facility] HospitalXifrnwyFPSATNUSOW6603-01-80 18:46:00 Test Item Value Reference Range Interpretation Comments Eosinophils (test code = 4.2 See_Comment [A utomated message] The Eosinophils) system which ge nerated this result tra nsmitted reference range : <=4.0. The reference r mitra was not used to int erpret this result as normal/abnormal . [facility] HospitalOofznroVSZGCBZOGH4864-57-14 18:46:00 Test Item Value Reference Range Interpretation Comments Segs (test code = Segs) 56.4 45.0-75.0 [facility] HospitalZyyhmqmLRXRGOZIJB4268-43-80 18:46:00 Test Item Value Reference Range Interpretation Comments Monocytes (test code = Monocytes) 10.3 2.0-12.0 [facility] HospitalJlqhncsSWYCWRVHCW9517-64-64 18:46:00 Test Item Value Reference Range Interpretation Comments Lymphocytes (test code = Lymphocytes) 28.0 20.0-40.0 [facility] HospitalBgdsrukDRTKCHEMQZ3571-05-71 18:46:00 Test Item Value Reference Range Interpretation Comments Monocytes # (test code 0.5 See_Comment [Aut omated message] The = Monocytes #) system which generated this result tra nsmitted reference range : <=0.8. The reference r mitra was not used to int erpret this result as normal/abnormal . [facility] HospitalQhrbyknONFXKHVBBJ3991-49-96 18:46:00 Test Item Value Reference Range Interpretation Comments Basophils (test code = 1.1 See_Comment [Aut omated message] The Basophils) system which ge nerated this result tra nsmitted reference range : <=1.0. The reference r mitra was not used to int erpret this result as normal/abnormal . [place] [id number] 18:46:00 Test Item Value Reference Range Interpretation Comments Lymphocytes # (test code = Lymphocytes 1.5 1.0-5.5 #) [facility] HospitalUwxvvexVPNZLWEMKZ1745-29-51 18:46:00 Test Item Value Reference Range Interpretation Comments Segs-Bands # (test code = Segs-Bands #) 2.9 1.5-8.1 [facility] HospitalYvctkoyLFLIDCBQPJ0024-07-43 18:46:00 Test Item Value Reference Range Interpretation Comments Eosinophils # (test code 0.2 See_Comment [A utomated message] The = Eosinophils #) system whic h generated this result tra nsmitted reference range : <=0.5. The reference r mitra was not used to int erpret this result as normal/abnormal . [facility] HospitalFnxtkhwFKKSVGIEUE0076-39-87 18:46:00 Test Item Value Reference Range Interpretation Comments Basophils # (test code 0.1 See_Comment [Aut omated message] The = Basophils #) system which generated this result tra nsmitted reference range : <=0.2. The reference r mitra was not used to int erpret this result as normal/abnormal . [facility] HospitalQpjwpmtDYQHBIRLEB2414-55-56 18:46:00 Test Item Value Reference Range Interpretation Comments PT (test code = PT) 11.2 s 12.0-14.7 [facility] HospitalUwhboclVFLJLUJXIG6904-24-68 18:46:00 Test Item Value Reference Range Interpretation Comments INR (test code = INR) 0.82 0.85-1.17 [facility] HospitalSaqksvxFBWGHKDRPR3627-06-77 18:46:00 Test Item Value Reference Range Interpretation Comments PTT (test code = PTT) 28.6 s 22.9-35.8 [facility] HospitalUrwsysbNQJTGVGOWI2304-10-85 18:46:00 Test Item Value Reference Range Interpretation Comments MPV (test code = MPV) 8.1 7.4-10.4 [facility] HospitalOkeqfppROCIRVZKFI1072-98-26 18:46:00 Test Item Value Reference Range Interpretation Comments Platelet (test code = Platelet) 301 133-450 [facility] HospitalPgovoipWNXCHEQYOC6349-89-73 18:46:00 Test Item Value Reference Range Interpretation Comments RDW (test code = RDW) 14.5 11.5-14.5 [facility] HospitalFdurzbrSAEKRZMIXK5439-58-12 18:46:00 Test Item Value Reference Range Interpretation Comments RBC (test code = RBC) 4.84 4.70-6.10 [facility]UyjgcisEHMNMWLEOJ4454-41-05 18:46:00 Test Item Value Reference Range Interpretation Comments Hgb (test code = Hgb) 14.4 14.0-18.0 [facility] HospitalNcmvtqqUTNEZWNVND1393-18-04 18:46:00 Test Item Value Reference Range Interpretation Comments WBC (test code = WBC) 5.2 3.7-10.4 [facility] HospitalPuutfwmKODEGVXOOR3309-62-66 18:46:00 Test Item Value Reference Range Interpretation Comments MCH (test code = MCH) 29.8 pg 27.0-31.0 [facility] HospitalSeilenaFKYLFXPPDK5517-71-59 18:46:00 Test Item Value Reference Range Interpretation Comments MCV (test code = MCV) 92.0 80.0-94.0 [facility] HospitalKzzntnfOPMNWJQRHH8920-67-73 18:46:00 Test Item Value Reference Range Interpretation Comments Hct (test code = Hct) 44.5 42.0-54.0 [id number] 18:46:00 Test Item Value Reference Range Interpretation Comments MCHC (test code = MCHC) 32.4 32.0-36.0 [id number] 18:46:00 Test Item Value Reference Range Interpretation Comments [place]-Hep C Ab (test Negative *NA*(07/22/14 code = [place]-Hep C 1:46 PM) Ab) [facility] AND [id number] 18:46:00 Test Item Value Reference Range Interpretation Comments UA Urobilinogen (test code = UA <=1.0 mg/dL 0.1-1.0 Urobilinogen) [facility] AND [id number] 18:46:00 Test Item Value Reference Range Interpretation Comments UA Sq Epi (test code = UA Sq Epi) None Seen [facility] AND [id number] 18:46:00 Test Item Value Reference Range Interpretation Comments UA Leuk Est (test Negative (07/22/14 1:46 code = UA Leuk Est) PM) [facility] AND [id number] 18:46:00 Test Item Value Reference Range Interpretation Comments UA Nitrite (test code Negative (07/22/14 1:46 = UA Nitrite) PM) [facility] AND [id number] 18:46:00 Test Item Value Reference Range Interpretation Comments UA Blood (test code = Negative (07/22/14 1:46 UA Blood) PM) [facility] AND [id number] 18:46:00 Test Item Value Reference Range Interpretation Comments UA Ketones (test code = UA Negative mg/dL Ketones) [facility] AND [id number] 18:46:00 Test Item Value Reference Range Interpretation Comments UA Bili (test code = Negative *NA*(07/22/14 UA Bili) 1:46 PM) [facility] AND [id number] 18:46:00 Test Item Value Reference Range Interpretation Comments UA Bacteria (test code = UA Occasional /HPF Bacteria) [facility] AND [id number] 18:46:00 Test Item Value Reference Range Interpretation Comments UA RBC (test code = no gt See_Comment [Automa elizabeth message] The UA RBC) system which ge nerated this result transmit elizabeth reference range : <=2. The reference range was not used to interpr et this result as lukas l/abnormal. [facility] AND [id number] 18:46:00 Test Item Value Reference Range Interpretation Comments UA WBC (test code = 1 See_Comment [Automa elizabeth message] The UA WBC) system which ge nerated this result transmit elizabeth reference range : <=5. The reference range was not used to interpr et this result as lukas l/abnormal. [facility] AND [id number] 18:46:00 Test Item Value Reference Range Interpretation Comments UA Glucose (test code = UA Glucose) 30 mg/dL [facility] AND [id number] 18:46:00 Test Item Value Reference Range Interpretation Comments UA Protein (test code = UA Negative mg/dL Protein) [facility] AND [id number] 18:46:00 Test Item Value Reference Range Interpretation Comments UA pH (test code = UA pH) 6.5 5.0-8.0 [facility] AND [id number] 18:46:00 Test Item Value Reference Range Interpretation Comments UA Turbidity (test code = Clear (07/22/14 1:46 UA Turbidity) PM) [facility] [id number] 18:46:00 Test Item Value Reference Range Interpretation Comments UA Spec Grav (test code = UA Spec Grav) 1.010 [facility] [id number] 18:46:00 Test Item Value Reference Range Interpretation Comments UA Color (test code = Light Yellow UA Color) *NA*(07/22/14 1:46 PM) [facility] [id number] 18:46:00 Test Item Value Reference Range Interpretation Comments Magnesium Lvl (test code = Magnesium 1.8 1.8-2.4 Lvl) [facility] [id number] 18:46:00 Test Item Value Reference Range Interpretation Comments AGAP (test code = AGAP) 13.2 10.0-20.0 [facility] Notes Date/Time Note Provider Source 2017-01-31 21:00:10-00:00 [facility] Discharge Summary PATIENT NAME: KEVIN KAYE PHYSICIAN: Royal Reed Admitted: MR NUMBER: [id number] DISCHARGED: 01/04/2017 12:2 2:00 DATE OF ADMISSION: 12/23/2016 DATE OF DISCHARGE: 01/04/2017 REASON FOR ADMISSION: The patient was admitted for a chief complaint o f disorganized thoughts and behaviors, apparent delusions. He was brought to [facility] by the [facility] after he was arrested on criminal mi schief. While in ch[facility], he displayed disorganized behavior and disorganized thoughts, [...] Psychopharmacotherapy. SPECIAL PROCEDURES: None. HOSPITAL COURSE: Mr. Kevin Kaye is a 56-year-old male who was [...] based on resolution of his Patient Name: KEVIN KAYE [id number] admitting symptoms, of disorganized behavior, di sorganized [...] attention, both grossly intact. Fund of Knowled ge: Appropriate for age and education. His gait [...] None. DIET RESTRICTIONS: None. FOLLOWUP: Patient Name: KEVIN KAYE [id number] The patient has a followup appointment scheduled with [facility] in [place] on 01/23/2017 at 1:30 p.m. and has been given specific instructions on how to get to the appointment. DISPOSITION: Mr. Kevin Kaye is currently stable and tolerati ng [...] The patient has also met with the older adult social work specialist to obtain appropriate followup report. The importance on following through with this plan has been review ed with the patient. The patient understands that compliance will be cruc ial to his recovery. He has been given the [facility] Crisis hotline number and the information about the [facility], if he wishes to obtain t herapy. MD Ramana Winn MD MH/SHE TD: 01/16/2017 02:03 CC:Ramana Shea MD Electronically Authenticated by: Royal Miller MD On 01/17/2017 02:55 PM BACK TENDER Electronically Authenticated by: Ramana Shea MD On 02/15/2017 12:47 PM BACK TENDER 2017-01-06 13:35:23-00:00 [facility] Progress Note PATIENT NAME: KEVIN KAYE PHYSICIAN: Shiva hopper MD Admitted: MR NUMBER: [id number] DISCHARGED: DATE OF SERVICE: 12/30/2016 TIME SEEN: 16:40. SUBJECTIVE: I was asked to see this patient by Dr. Ramana salazar's service, particularly resident, Dr. Miller, with regard to this patient' s condition. Apparently, this patient was brought in with roberto e form of psychosis and altered mental status from [facility]. Apparently, there was concern for [...] He states that care was received at [facility] with regards to t his issue. PHYSICAL EXAMINATION: VITAL SIGNS: Temperature 98.0 degrees Fahrenheit , heart rate 81, respiratory rate 16, blood pressure 135/81. GENERAL: This patient is talking to me, appears focused, at times inappropriate with some of the answers I give hi m; however, when redirected appears to be making sensible speech. He knows h e is at [facility]. [facility] Progress Note PATIENT NAME: KEVIN KAYE PHYSICIAN: Shiva hopper MD Admitted: MR NUMBER: [id number] DISCHARGED: DATE OF SERVICE: 12/30/2016 TIME SEEN: 16:40. SUBJECTIVE: I was asked to see this patient by Dr. Ramana salazar's service, particularly resident, Dr. Miller, with regard to this patient' s condition. Apparently, this patient was brought in with roberto e form of psychosis and altered mental status from [place] [facility]. Apparently, there was concern for Wernicke encephalopathy [...] a DVT the year prior and appfortino singh was on anticoagulation, then had issues with his leg be coming swollen and having clot burden all the way from the foot to the thi gh. He states that care was received at [facility] with regards to t his issue. PHYSICAL EXAMINATION: VITAL SIGNS: Temperature 98.0 degrees Fahrenheit , heart rate 81, respiratory rate 16, blood pressure 135/81. GENERAL: This patient is talking to me, appears focused, at times inappropriate with some of the answers I give hi m; however, when redirected appears to be making sensible speech. He knows h e is at [facility]. Patient Name: KEVIN KAYE [id number] CHEST: Clear to auscultation bilaterally. No whe ezes, rhonchi, or rales. CARDIOVASCULAR: S1, S2 audible. Rhythm is regul ar. No gallops. ABDOMEN: Soft, nontender. Normoactive bowel [...] workup other medical issues here. Patient Name: KEVIN AKYE [id number] CHEST: Clear to auscultation bilaterally. No whe [...] workup other medical issues here. Patient Name: KEVIN KAYE [id number] We will continue to follow. Shiva Stack MD RV/AURORA/CTV TD: 12/30/2016 18:08 Patient Name: KEVIN KAYE [id number] We will continue to follow. Shiva Stack MD RV/RAN/CTV TD: 12/30/2016 18:08 Electronically Authenticated by: Shiva Stack MD On 01/06/2017 12:12 PM BACK TENDER 2017-01-05 17:10:42-00:00 [facility] History and Physical PATIENT NAME: KEVIN KAYE PHYSICIAN: Lisa rockwell MD Admitted: MR NUMBER: [id number] DISCHARGED: DATE OF SERVICE: 12/24/2016 The patient was seen and examined today. CONSULTING PHYSICIAN: Ramana Shea MD. REASON FOR CONSULTATION: Medical management. HISTORY OF PRESENT ILLNESS: The patient is a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
--- NOTE | 2022-07-23 20:06 | ER ---
Nurse's Notes [facility] Name: Kevin Kaye Age: 61 yrs Sex: Male : 1960 Arrival Date: 07/23/2022 Time: 18:46 Bed IW10 Private MD: Diagnosis: Pain in leg, unspecified-bilateral Presentation: 07/23 18:47 Chief complaint: EMS states: BLE PAIN. Coronavirus screen: At this time, the client bp does not indicate any symptoms associated with coronavirus-19. Ebola Screen: No symptoms or risks identified at this time. Initial Sepsis Screen: Does the patient meet any 2 criteria? No. Patient's initial sepsis screen is negative. Does the patient have a suspected source of infection? No. Patient's initial sepsis screen is negative. Risk Assessment: Do you want to hurt yourself or someone else?. Note [facility] FROM [facility] TODAY. Onset of symptoms is unknown. Care prior to arrival: IV initiated. 20 GA, in the right hand. 18:47 Method Of Arrival: EMS: [facility] bp 18:47 Acuity: ARI 3 bp Assessment: 19:15 General: Patient called from [facility], no response. pf1 20:05 General: patient called from [facility],no response. pf1 Vital Signs: 18:47 BP 117 / 80; Pulse 80; Resp 16; Temp 97.1; Pulse Ox 99% ; bp ED Course: 18:47 Patient arrived in ED. bp 18:49 Triage completed. bp 19:11 Shin Barfield MD is Attending Physician. bs3 22:43 Haylee Correa [facility]-C [facility] kb 22:43 Shin Barfield MD is Attending Physician. kb Administered Medications: No medications were administered Outcome: 20:06 Patient left the ED. pf1 22:43 Discharge ordered by MD. kb 22:49 Patient left the ED. la1 Signatures: Haylee Correa FNP-C FNP-Ckb Wilmer Chandra FNP-C FNP-ClaDaniel Romo, RN RN bp Shin Barfield MD MD bs3 Natalia Flood RN RN pf1
[2022-07-23 20:18] VITALS: BP 117/80; TEMP 97.1; O2SAT 99
--- NOTE | 2022-07-23 22:44 | EDPHYS ---
Physician Documentation [facility] Name: Kevin Kaye Age: 61 yrs Sex: Male : 1960 Arrival Date: 07/23/2022 Time: 18:46 Bed IW10 Private MD: ED Physician Shin Barfield HPI: 07/23 23:19 This 61 yrs old Male presents to ER via EMS with complaints of Leg Pain. kb 23:19 Patient is a 61-year-old male who presents for bilateral lower extremity pain. Patient kb has been seen multiple times for this pain in the past with diagnoses of cellulitis and DVT. Transfer to [facility] for vascular consult has been recommended multiple times to patient, but patient has not wanted to be transferred during previous visits.. ROS: 23:19 Constitutional: Negative for fever, chills, and weight loss. kb 23:19 MS/extremity: Positive for pain, swelling, of the right leg and left leg. 23:19 All other systems are negative. Exam: 23:20 Constitutional: This is a well developed, well nourished patient who is awake, alert, kb and in no acute distress. ENT: Moist Mucous membranes Respiratory: Respirations even and unlabored. No increased work of breathing. Talking in full sentences Vital Signs: 18:47 BP 117 / 80; Pulse 80; Resp 16; Temp 97.1; Pulse Ox 99% ; bp MDM: 18:52 Patient medically screened. kb 23:20 Differential diagnosis: DVT, cellulitis. Data reviewed: vital signs, nurses notes. kb Historians other than the Patient: EMS: [facility]. ED course: Patient elected to leave prior to full physical examination and any diagnostic testing.. Administered Medications: No medications were administered Disposition Summary: 07/23/22 22:43 Discharge Ordered Location: Home kb Condition: Stable kb Diagnosis - Pain in leg, unspecified - bilateral kb Followup: kb - With: Emergency Department - When: As needed - Reason: Worsening of condition Followup: kb - With: Private Physician - When: 2 - 3 days - Reason: Recheck today's complaints, Continuance of care, Re-evaluation by your physician Discharge Instructions: - Discharge Summary Sheet kb - Musculoskeletal Pain kb Forms: - Medication Reconciliation Form kb - Thank You Letter kb - Antibiotic Education kb - Prescription Opioid Use kb Signatures: Haylee Correa FNP-C FNP-Shin Gray MD MD bs3 Natalia Flood RN RN pf1 Corrections: (The following items were deleted from the chart) 20: Before Triage pf1 kb 20:06 unknown pf1 kb
== END 2022-07-23 22:49 | disposition home or self-care (01) ==
LOC: ER 18:46
DX: M79.605 Pain in left leg (principal); M79.604 Pain in right leg
CPT/HCPCS: 99282

== ENCOUNTER 2022-07-23 23:21 | Emergency (ER) | payer OTHER ==
--- NOTE | 2022-07-23 23:42 | EDPHYS ---
Physician Documentation [facility] Name: Kevin Kaye Age: 61 yrs Sex: Male : 1960 Arrival Date: 07/23/2022 Time: 23:21 Bed 5 Private MD: ED Physician Shin Barfield HPI: 07/23 23:39 This 61 yrs old Male presents to ER via Unassigned with complaints of Leg bs3 Pain. 23:39 Mr. Kaye is a 61-year-old male with chronic DVT who is supposed to be on bs3 anticoagulation but is not compliant he is status post IVC filter which fractured and then was removed presenting with right leg pain after walking all day he denies any other complaints he feels little bit tired because he walked all the way here from [facility] per outside historian she was seen at [place] earlier today and transported here via EMS had been seen earlier in the day and left and then returns he has no other complaints. Historical: - Allergies: 23:50 PENICILLINS; jb4 23:50 GABAPENTIN; jb4 - PMHx: 23:50 Anxiety; Bipolar disorder; Depression; DVT; Schizophrenia; jb4 - Immunization history:: Adult Immunizations up to date. - Social history:: Smoking status: Patient reports use of chewing tobacco. Patient uses alcohol, occasionally. ROS: 23:39 Constitutional: Negative for fever, chills bs3 23:39 All other systems are negative. Exam: 23:39 Constitutional: This is a well developed, well nourished patient who is awake, alert, bs3 and in no acute distress. Head/Face: Normocephalic, atraumatic. ENT: mmm, no posterior phyarngeal erythema Chest/axilla: Normal chest wall appearance and motion. Nontender with no deformity. No lesions are appreciated. Cardiovascular: Regular rate and rhythm with a normal S1 and S2. symmetric pulses in upper extremities Respiratory: Lungs have equal breath sounds bilaterally, clear to auscultation, no respiratory distress MS/ Extremity: He has significant edema of the right lower extremity his leg is warm and well-perfused he has a steady gait Neuro: Awake and alert, GCS 15, oriented to person, place, time, and situation. Cranial nerves II-XII grossly intact. Motor strength 5/5 in all extremities. Sensory grossly intact. Psych: Awake, alert, with orientation to person, place and time. Behavior, mood, and affect are within normal limits. Vital Signs: 23:49 BP 140 / 67; Pulse 83; Resp 16; Temp 98.8(TE); Pulse Ox 100% ; Weight 81.65 kg (R); jb4 Height 5 ft. 6 in. (R); 23:49 Body Mass Index 29.05 (81.65 kg, 167.64 cm) jb4 MDM: 23:31 Patient medically screened. bs3 23:39 Data reviewed: vital signs, nurses notes. ED course: 61-year-old with chronic DVT bs3 presenting with leg pain likely secondary to his chronic swelling advised Tylenol and elevation he has no signs of acute limb ischemia is strongly advised to follow-up with primary care for his chronic pain as well as vascular surgery. Administered Medications: No medications were administered Disposition Summary: 07/23/22 23:42 Discharge Ordered Location: Home bs3 Problem: new bs3 Symptoms: have improved bs3 Condition: Stable bs3 Diagnosis - Pain in right lower leg bs3 Followup: bs3 - With: Private Physician - When: 1 week - Reason: Re-evaluation by your physician Discharge Instructions: - Discharge Summary Sheet bs3 - Musculoskeletal Pain bs3 Forms: - Medication Reconciliation Form bs3 - Thank You Letter bs3 - Antibiotic Education bs3 - Prescription Opioid Use bs3 Signatures: Jimbo Daiz, RN RN jb4 Shin Barfield MD MD bs3
--- NOTE | 2022-07-23 23:55 | ER ---
Nurse's Notes [facility] Name: Kevin Kaye Age: 61 yrs Sex: Male : 1960 Arrival Date: 07/23/2022 Time: 23:21 Bed 5 Private MD: Diagnosis: Pain in right lower leg Presentation: 07/23 23:49 Chief complaint: Patient states: I think I have cellulitis. My legs are hurting and jb4 swelling. I think I need antibiotics. Coronavirus screen: At this time, the client does not indicate any symptoms associated with coronavirus-19. Ebola Screen: No symptoms or risks identified at this time. Initial Sepsis Screen: Does the patient meet any 2 criteria? No. Patient's initial sepsis screen is negative. Does the patient have a suspected source of infection? No. Patient's initial sepsis screen is negative. Risk Assessment: Do you want to hurt yourself or someone else? Patient reports no desire to harm self or others. Onset of symptoms was July 23, 2022. Transition of care: patient was not received from another setting of care. 23:49 Method Of Arrival: Ambulatory jb4 23:49 Acuity: ARI 4 jb4 Historical: - Allergies: 23:50 PENICILLINS; jb4 23:50 GABAPENTIN; jb4 - PMHx: 23:50 Anxiety; Bipolar disorder; Depression; DVT; Schizophrenia; jb4 - Immunization history:: Adult Immunizations up to date. - Social history:: Smoking status: Patient reports use of chewing tobacco. Patient uses alcohol, occasionally. Screenin:51 [facility] ED Fall Risk Assessment (Adult) History of falling in the last 3 months, jb4 including since admission No falls in past 3 months (0 pts) Confusion or Disorientation No (0 pts). Abuse screen: Denies threats or abuse. Nutritional screening: No deficits noted. Tuberculosis screening: No symptoms or risk factors identified. Assessment: 23:51 General: Appears in no apparent distress. uncomfortable, Behavior is calm, cooperative, jb4 appropriate for age. Pain: Complains of pain in right leg and left leg Pain does not radiate. Pain currently is 8 out of 10 on a pain scale. Neuro: Level of Consciousness is awake, alert, obeys commands, Oriented to person, place, time, situation. Cardiovascular: Patient's skin is warm and dry. Respiratory: Airway is patent Respiratory effort is even, unlabored, Respiratory pattern is regular, symmetrical. GI: No signs and/or symptoms were reported involving the gastrointestinal system. : No signs and/or symptoms were reported regarding the genitourinary system. EENT: No signs and/or symptoms were reported regarding the EENT system. Derm: Skin is intact, Skin is red below the knee LESLIE, and pink warm and dry above the knees and to the rest of the body. Musculoskeletal: Circulation, motion, and sensation intact. Range of motion: intact in all extremities. Vital Signs: 23:49 BP 140 / 67; Pulse 83; Resp 16; Temp 98.8(TE); Pulse Ox 100% ; Weight 81.65 kg (R); jb4 Height 5 ft. 6 in. (R); 23:49 Body Mass Index 29.05 (81.65 kg, 167.64 cm) jb4 ED Course: 23:22 Patient arrived in ED. bp1 23:31 Shin Barfield MD is Attending Physician. bs3 23:49 Jimbo Diaz RN is Primary Nurse. jb4 23:50 Triage completed. jb4 23:50 Arm band placed on right wrist. jb4 23:51 Patient has correct armband on for positive identification. Bed in low position. Call jb4 light in reach. Side rails up X 1. Client placed on continuous cardiac and pulse oximetry monitoring. NIBP monitoring applied. 23:51 IV discontinued, intact, bleeding controlled, No redness/swelling at site. Pressure jb4 dressing applied, Pt appears to have an EMS IV in place after coming in through the front lobby. IV site appears bloody, but dry. Catheter was intact upon removal. Administered Medications: No medications were administered Medication: 23:51 VIS not applicable for this client. jb4 Outcome: 23:42 Discharge ordered by . bs3 23:51 Discharged to home ambulatory. jb4 23:51 Condition: stable 23:51 Discharge instructions given to patient, Instructed on discharge instructions, follow up and referral plans. Demonstrated understanding of instructions, follow-up care. 23:55 Patient left the ED. jb4 Signatures: Jmibo Diaz, RN RN jb4 Phyllis Bautista bp1 Shin Barfield MD MD bs3
--- OUTSIDE RECORDS SUMMARY | 2022-07-23 23:55 | XMS REPORT | Continuity of Care Document ---
:1960 Author Organization [facility] t Address [address] [facility]. [address] [place] [address] Care Team Providers Name Role Phone Asked, No Pcp Primary Care Physician Unavailable [id number] Attending Clinician Unavailable BECCA PHAM Attending Clinician [...] Clinician Elyse CARTER, Ramana Simon Attending Clinician ARISTEO TRINIDAD Attending Clinician Unavailable Hilda Miller MD Attending Clinician Aristeo Trinidad DO Attending Clinician LAUREEN MOORE Attending Clinician Unavailable Sunny Alfonso MD Attending Clinician [phone] Olga Abraham MD Attending Clinician Laureen Moore MD Attending Clinician Doctor Unassigned, [place] Attending Clinician Unavailable ALLAN LYNCH Attending Clinician [...] Unavailable DAWSON CHOUDHURY Attending Clinician Unavailable , [facility] Sleep Lab Bed Attending Clinician Unavailable Alphonse Manjarrez PA-C Attending Clinician ALPHONSE MANJARREZ Attending Clinician Unavailable DELROY FARAH Attending Clinician Unavailable Delroy Farah MD Attending Clinician [facility] Sleep Lab Attending Clinician Unavailable Erma Morales RN Attending Clinician Unavailable MAGDALENE MALDONADO Attending Clinician Unavailable Joel FIRE ALARM TECHNICIANMagdalene Garibay Attending Clinician LenyessyTrey Toscanojuliosuma Attending Clinician HERMINIO CORBIN Attending Clinician Unavailable Ladonna Bryant DO Attending Clinician MAKAYLA SARGENT Attending Clinician Unavailable Makayla Fulton S Attending Clinician CLEVE_ Attending Clinician Unavailable BENITO LOPEZ Attending Clinician Unavailable Edgard Leo DO Attending Clinician Kirsten CARTER, Magali Attending Clinician Allen Maravilla MD Attending Clinician Perla CARTER, Georgina Key Attending Clinician [phone] SIENNA POLK Attending Clinician Unavailable LADI RIBERA Attending Clinician Unavailable YASMINE BROOKE Attending Clinician Unavailable MD YASMINE BROOKE Attending Clinician Unavailable Pato Hill MD Attending Clinician Surgery, [facility] General Attending Clinician Unavailable Sofia aMlone MD Attending Clinician Surgery, c Vascular Attending Clinician Unavailable Ramana Padron MD Attending Clinician RAMANA SHEA M.D., RAMANA Acevedo M.D. Attending Clinician Unavailable Christy Moya Attending Clinician [id number] Admitting Clinician Unavailable BECCA PHAM Admitting Clinician [...] Clinician Perla CARTER, Georgina Key Admitting Clinician [phone] YASMINE BROOKE Admitting Clinician Unavailable MD YASMINE BROOKE Admitting Clinician Unavailable Sergio CARTER, Pato Marina Admitting Clinician RAMANA SHEA M.D., RAMANA Acevedo Admitting Clinician Tasha ivey Payers Payer Name Policy Type Policy Number Effective Date Expiration Date S emmanuel [employer] [id number] 2022 00:00:00 WLCM WLCM [id number] [place]ARE [place] [id number] 2021 CLASSIC NO PREMIUM 00:00:00 HMO MEDICARE PART A [id number] 2003 00:00:00 [facility] [id number] FPC 00:00:00 WELLCARE VALUE [id number] 2020 00:00:00 Problems Condition Condition Condition Status Onset Resolution Last Treating Co mments Source Name Details Category Date Date Treatment Clinician Date Cellulitis Cellulitis Disease Active U nivers of right of right 5-29 ity of lower lower 00:00: [place] extremity extremity 00 [facility] Acute Acute Disease Active [facility] [...] Univers filter filter 4-14 ity of 00:00: [place] [facility] DVT (deep DVT (deep Disease Active Uni vers venous venous 4-14 [place] of [place] [facility] Bilateral Bilateral Disease Active Uni vers sciatica sciatica 4-13 ity of 00:00: [place] 00 [facility] Obesity Obesity Disease Active Univers [...] chronicity chronicity ally from request for surgery [id number] Lipoma of Lipoma of Disease Active Overview: Univers right right 4-12 Formattin ity of lower lower 00:00: g of this [place] extremity extremity 00 note Medi gordon might be Branch different from the original. Added automatic ally from request for surgery [id number] Lipoma of Lipoma of Disease Active Uni vers torso torso 4-06 ity of 00:00: [place] [facility] Kamryn Kamryn Disease Active Univers 6-24 ity of 00:00: [place] [facility] Rhabdomyol Rhabdomyol Disease Active U nivers ysis ysis 6-21 ity of 00:00: [place] 00 Medical Branch Presence Presence Disease Active Metho di of IVC of IVC 917 st filter filter 00:00: [facility]osp[facility] 00 l Acute Acute Disease Active Methodi chest pain chest pain 9-15 st 00:00: [facility]osp[facility] 00 l Behavior Behavior Disease Active Unive rs problem problem 6-13 ity of 00:00: [place] [facility] Cellulitis Cellulitis Disease Active U nivers and and 6-13 ity of abscess of abscess of [place] foot foot 00 Medical [place] Alteration Alteration Disease Active U nivers consciousn consciousn 6-13 it y of ess ess 00:00: [place] 00 Medical Branch TESTING TESTING Diagnosis Active 2014-07-28 Memoria FOR DVT FOR DVT 07-22 14:06:00 l Active 00:00: [place] 07/22/2014 00 [facility] Schizophre Schizophre Disease Active 2006- U nivers [...] 07-22 07:19:48 07:19:48 l Chronic Chronic 05:00: [place] back pain back pain 00 07/22/2014 07/25/2014 [...] DRUG Active Other-Cmnt Univ ers M INGREDI 6- ity of 00:00: [place] [facility] Lorazepa Propensi Active Other - See "Highly [...] Center s PENICILL Allergy Active Low Rash 2022-[address] [facility] [facility] HEPARIN DRUG Active Unknown-Cmnt 0 Uni vers INGREDI - ity of 00:00: [...] PENICILL Drug Active Rash Univers INS Class -06 ity of 00:00: [place] 00 Medical Branch Penicill Penicill Active Memori a in in l [place] Family History Family Member Diagnosis Comments Start Date Stop Date Source Natural father Heart attack [facility] Natural mother Diabetes [facility] Social History Social Habit Start Date Stop Date Quantity Comments Source History SDOH University o f Alcohol Std Drinks [place] [facility] History SDOH University o f Alcohol Binge [place] [facility] History SDOH Social Unive rsity of Connections Get [place] Med ical Together Branch History SDOH Social Unive rsity of Connections [facility] Medical Branch History SDOH Social Unive rsity of Connections [place] [facility] Membership Branch History SDOH Social Unive rsity of Connections [place] [facility] Meetings Branch Gender identity [facility] Sexual [facility] Exposure [...] Unive rsity of Connections Living 00:00:00 00:00:00 [place] [facility] History SDOH 2022-05-27 2022-05-27 0 University o f Physical Activity 00:00:00 00:00:00 [place] M edical DPW Branch History SDCT 2022-05-27 2022-05-27 0 University o f Physical Activity 00:00:00 00:00:00 [place] M edical MPS Branch History SDOH 2022-05-27 2022-05-27 5 University o f Financial 00:00:00 00:00:00 [place] [facility] History SDOH Food 2022-05-27 2022-05-27 1 Univers ity of Worry 00:00:00 00:00:00 [place] [facility] History SDOH Food 2022-05-27 2022-05-27 1 Univers ity of Scarcity 00:00:00 00:00:00 [place] [facility] History SDOH 2022-05-27 2022-05-27 2 University o f Transport Med 00:00:00 00:00:00 [place] Medic al Branch History SDOH 2022-05-27 2022-05-27 2 University o f Transport Non-Med 00:00:00 00:00:00 [place] M edical Branch History SDCT 2022-05-27 2022-05-27 2 University o f Housing Unable to 00:00:00 00:00:00 [place] M edical Pay Branch History SDCT 2022-05-27 2022-05-27 1 University o f Housing Places 00:00:00 00:00:00 [facility] gordon Lived Branch History SDCT 2022-05-27 2022-05-27 2 University o f Housing Homeless 00:00:00 00:00:00 [facility] edison Last Year Branch Education 2022-05-26 2022-05-26 21 University of 00:00:00 00:00:00 [facility] Tobacco use and 2022-05-03 2022-05-03 User of Universit y of exposure 00:00:00 00:00:00 smokeless [facility] tobacco Branch Tobacco Comment 2021-09-22 2021-09-22 dipper Universit y of 00:00:00 00:00:00 [facility] History of Social 2019-10-31 2019-10-[address] function 00:00:00 00:00:00 Hospital Alcohol intake 2019-10-29 2019-10-29 Lifetime [facility] 00:00:00 00:00:00 non-drinker Hospital (finding) History of tobacco 2014-08-25 Snuff User Univer sity of use 00:00:00 [facility] Sex [birth year] At [birth year] [facility] 00:00:00 00:00:00 Hospital Smoking Status Start Date Stop Date Source Social History [facility] Medications Ordered Filled Start Stop Current Ordering Indication Dosage Frequency Signature Comments Components Source Medication Medication Date Date Medication? Clinician (SIG) Name Name clindamycin 2022- No 900mg 900 mg, IV Univers in 5 % 07-11 Piggyback, ity of dextrose 10:45: 11:47 ONCE, 1 [place] (CLEOCIN) 00 :00 dose, On Medica l 900 mg/50 Mon [place] mL IV 07/11/22 at piggyback 0545, RTU 900 mg Administer over 30 Minutes, 50 mL
R chelsea for Anti-Infec tive: Empiric Therapy for Suspected Infection< br>Empiric Therapy Site: Skin / Soft tissue
Duration of therapy: 5 days
Re stricted use approved by: ED PROVIDER cefTRIAXone 2022- No 1000mg 1,000 mg, Univers (ROCEPHIN) 07-05 IV ity of 1,000 mg in 14:15: 14:53 [place], [place] NaCl 0.9% 00 :00 ONCE[facility] dose, On [facility] ch MINI-BAG [facility] 07/05/22 at 0915, Administer over 30 [...] On Branch Mon07/05/22 at 0715, Routine OLANZapine Yes [id number] 5mg Take 1 Univers 5 mg tablet 5-23 tablet by ity of 00:00: mouth in [place] 00 the Medical morning. Branch OLANZapine 2022- Yes [id number] 5mg Take 1 Univers 5 mg tablet 5-23 tablet by ity of 00:00: mouth in [place] 00 the Medical morning. Branch OLANZapine 2023-0 Yes [id number] 5mg Take 1 Univers 5 mg tablet 5-23 tablet by ity of 00:00: mouth in [place] 00 the Medical morning. Branch OLANZapine 2023-0 Yes [id number] 5mg Take 1 Univers 5 mg tablet 5-23 tablet by ity of 00:00: mouth in [place] the Medical morning. Branch OLANZapine 2023-0 Yes [id number] 5mg Take 1 Univers 5 mg tablet 5-23 tablet by ity of 00:00: mouth in [place] 00 the Medical morning. Branch OLANZapine 2023-0 Yes [id number] 5mg Take 1 Univers 5 mg tablet 5-23 tablet by ity of 00:00: mouth in [place] 00 the Medical morning. Branch OLANZapine 2023-0 Yes [id number] 5mg Take 1 Univers 5 mg tablet 5-23 tablet by ity of 00:00: mouth in [place] the Medical morning. Branch OLANZapine 2023-0 Yes [id number] 5mg Take 1 Univers 5 mg tablet 5-23 tablet by ity of 00:00: mouth in [place] the Medical morning. Branch OLANZapine 2023-0 Yes [id number] 5mg Take 1 Univers 5 mg tablet 5-23 tablet by ity of 00:00: mouth in [place] the Medical morning. Branch OLANZapine 2023-0 Yes [id number] 5mg Take 1 Univers 5 mg tablet 5-23 tablet by ity of 00:00: mouth in [place] the Medical morning. Branch furosemide 2023-0 2023- Yes [id number] 40mg Take 1 Univers 40 mg 5-23 06-07 tablet by ity of tablet 00:00: 04:59 mouth [place] 00 :00 every Medical morning Branch and evening for 14 days. furosemide 2023-0 2023- Yes [id number] 40mg Take 1 Univers 40 mg 5-23 06-07 tablet by ity of tablet 00:00: 04:59 mouth [place] 00 :00 every Medical morning Branch and evening for 14 days. furosemide 2023-0 2023- Yes [id number] 40mg Take 1 Univers 40 mg 5-23 06-07 tablet by ity of tablet 00:00: 04:59 mouth [place] 00 :00 every Medical morning Branch and evening for 14 days. furosemide 2023-0 2023- Yes [id number] 40mg Take 1 Univers 40 mg 5-23 06-07 tablet by ity of tablet 00:00: 04:59 mouth [place] 00 :00 every Medical morning Branch and evening for 14 days. furosemide 2022- Yes [id number] 40mg Take 1 Univers 40 mg 5-23 06-07 tablet by ity of tablet 00:00: 04:59 mouth [place] 00 :00 every Medical morning Branch and evening for 14 days. furosemide 2022- Yes [id number] 40mg Take 1 Univers 40 mg 5-23 06-07 tablet by ity of tablet 00:00: 04:59 mouth [place] 00 :00 every Medical morning Branch and evening for 14 days. furosemide 2022- Yes [id number] 40mg Take 1 Univers 40 mg 5-23 06-07 tablet by ity of tablet 00:00: 04:59 mouth [place] 00 :00 every Medical morning Branch and evening for 14 days. cephALEXin 2022- Yes [id number] 1000mg Take 2 Univers 500 mg -05 07- [id number] capsules ity of capsule 00:00: 04:59 by mouth [place] 00 :00 in the Medical morning Branch and 2 capsules in the evening. Do all this for 7 days. cephALEXin 2022- Yes [id number] 1000mg Take 2 Univers 500 mg -07-13 [id number] capsules ity of capsule 00:00: 04:59 by mouth [place] 00 :00 in the Medical morning Branch and 2 capsules in the evening. Do all this for 7 days. cephALEXin 2022- Yes [id number] 1000mg Take 2 Univers 500 mg -07-13 [id number] capsules ity of capsule 00:00: 04:59 by mouth [place] 00 :00 in the Medical morning Branch and 2 capsules in the evening. Do all this for 7 days. cephALEXin 2022- Yes [id number] 1000mg Take 2 Univers 500 mg 5-05 07- [id number] capsules ity of capsule 00:00: 04:59 by mouth [place] 00 :00 in the Medical morning Branch and 2 capsules in the evening. Do all this for 7 days. cephALEXin 2022- Yes [id number] 1000mg Take 2 Univers 500 mg 5-05 07- [id number] capsules ity of capsule 00:00: 04:59 by mouth [place] 00 :00 in the Medical morning Branch and 2 capsules in the evening. Do all this for 7 days. apixaban 5 2022-0 Yes [id number] 5mg Take 1 Unive rs mg tablet 5-22 tablet by ity o f 00:00: mouth in [place] 00 the Medical morning Branch and 1 tablet in the evening. Indication s: history of deep vein thrombosis apixaban 5 2022-0 Yes [id number] 5mg Take 1 Unive rs mg tablet 5-22 tablet by ity o f 00:00: mouth in [place] 00 the Medical morning Branch and 1 tablet in the evening. Indication s: history of deep vein thrombosis apixaban 5 2022-0 Yes [id number] 5mg Take 1 Unive rs mg tablet 5-22 tablet by ity o f 00:00: mouth in [place] 00 the Medical morning Branch and 1 tablet in the evening. Indication s: history of deep vein thrombosis apixaban 5 2022-0 Yes 5523 5mg Take 1 Unive rs mg tablet 5-22 tablet by ity o f 00:00: mouth in [place] 00 the Medical morning Branch and 1 tablet in the evening. Indication s: history of deep vein thrombosis apixaban 5 2022-0 Yes 5523 5mg Take 1 Unive rs mg tablet 5-22 tablet by ity o f 00:00: mouth in [place] 00 the Medical morning Branch and 1 tablet in the evening. Indication s: history of deep vein thrombosis apixaban 5 3-0 Yes 5523 5mg Take 1 Unive rs mg tablet 5-22 tablet by ity o f 00:00: mouth in [place] 00 the Medical morning Branch and 1 tablet in the evening. Indication s: history of deep vein thrombosis apixaban 5 3-0 Yes 5523 5mg Take 1 Unive rs mg tablet 5-22 tablet by ity o f 00:00: mouth in [place] 00 the Medical morning Branch and 1 tablet in the evening. Indication s: history of deep vein thrombosis apixaban 5 3-0 Yes 5523 5mg Take 1 Unive rs mg tablet 5-22 tablet by ity o f 00:00: mouth in [place] 00 the Medical morning Branch and 1 tablet in the evening. Indication s: history of deep vein thrombosis apixaban 5 3-0 Yes 5523 5mg Take 1 Unive rs mg tablet 5-22 tablet by ity o f 00:00: mouth in [place] [address] [facility] [place] and 1 tablet in the evening. Indication s: history of deep vein thrombosis apixaban 5 2023-0 Yes 5523 5mg Take 1 Unive rs mg tablet 5-22 tablet by ity o f 00:00: mouth in [address] morning [place] and 1 tablet in the evening. Indication s: history of deep vein thrombosis apixaban 5 2023-0 Yes 5523 5mg Take 1 Unive rs mg tablet 5-22 tablet by ity o f 00:00: mouth in [address] morning [place] and 1 tablet in the evening. Indication s: history of deep vein thrombosis apixaban 5 2023-0 Yes 5523 5mg Take 1 Unive rs mg tablet 5-22 tablet by ity o f 00:00: mouth in [address] morning [place] and 1 tablet in the evening. Indication s: history of deep vein thrombosis apixaban 5 3-0 Yes 5523 5mg Take 1 Unive rs mg tablet 5-22 tablet by ity o f 00:00: mouth in [address] and 1 tablet in the evening. [...] mouth Center nightly. gabapentin 2023-0 Yes 300mg Q.[id number] Take [address] (NEURONTIN) 5-11 [id number] [facility] 300 MG 18:24: 3D (300 [...] mouth Center nightly. gabapentin 2023-0 Yes 300mg Q.[id number] Take [address] (NEURONTIN) 5-11 [id number] [facility] 300 MG 18:24: 3D (300 [...] s mg tablet 06-13 ity of 00:00: [place] [facility] traMADoL 50 2022-0 Yes Univer s mg tablet 06-13 ity of 00:00: [place] [facility] traMADoL 50 3-0 Yes Univer s mg tablet 06-13 ity of 00:00: [place] [facility] traMADoL 50 3-0 Yes Univer s mg tablet 06-13 ity of 00:00: [place] [facility] traMADoL 50 2022-0 Yes Univer s mg tablet 06-13 ity of 00:00: [place] [facility] traMADoL 50 3-0 Yes Univer s mg tablet 06-13 ity of 00:00: [place] [facility] traMADoL 50 3-0 Yes Univer s mg tablet 06-13 ity of 00:00: [place] [facility] traMADoL 50 3-0 Yes Univer s mg tablet 06-13 ity of 00:00: [place] [facility] traMADoL 50 3-0 Yes Univer s mg tablet 06-13 ity of 00:00: [place] [facility] traMADoL 50 3-0 Yes Univer s mg tablet 06-13 ity of 00:00: [place] [facility] traMADoL 50 3-0 Yes Univer s mg tablet 06-13 ity of 00:00: [place] [facility] traMADoL 50 3-0 Yes Univer s mg tablet 06-13 ity of 00:00: [place] [facility] traMADoL 50 3-0 Yes Univer s mg tablet 06-13 ity of 00:00: [place] [facility] traMADoL 50 3-0 Yes Univer s mg tablet 06-13 ity of 00:00: [place] 00 Medical Branch traMADoL 50 3-0 Yes Univer s mg tablet 06-13 ity of 00:00: [place] [facility] traMADoL 50 3-0 Yes Univer s mg tablet 06-13 ity of 00:00: [place] 00 Medical Branch traMADoL 50 2023-0 Yes Univer s mg tablet 06-13 ity of 00:00: Medical Branch traMADoL 50 2022-0 Yes Univer s mg tablet 06-13 ity of 00:00: Medical Branch traMADoL 50 2022-0 Yes Univer s mg tablet 06-13 ity of 00:00: Medical Branch traMADoL 50 2022-0 Yes Univer s mg tablet 06-13 ity of 00:00: Medical Branch tc 2022-0 2022- No [id number] 25mCi 25 Univer s 99m-medrona 4 04-25 millicurie i ty of te 13:50: 13:50 , [place] (DRAXIMAGE 00 :00 Intravenou Med ical MDP-25) s, ONCE, 1 Branch injection dose, On Mon millicurie 06/07/22 at 0900, Routine apixaban 5 2022- Yes [id number] 5mg Take 1 Univ ers mg tablet 06-07 05-26 tablet by ity of 00:00: 04:59 mouth in [place] 00 :00 the [facility] [place] and 1 tablet in the evening. Do all this for 30 days. Indication s: history of deep vein thrombosis apixaban 5 2022-2022- Yes 5523 5mg Take 1 Univ ers mg tablet 4-25 05-26 tablet by ity of 00:00: 04:59 mouth in [place] 00 :00 the [facility] Branch and 1 tablet in the evening. Do all this for 30 days. Indication s: history of deep vein thrombosis apixaban 5 0 2022- Yes 5523 5mg Take 1 Univ ers mg tablet 4-25 05-26 tablet by ity of 00:00: 04:59 mouth in [place] 00 :00 [facility] and 1 tablet in the evening. Do all this for 30 days. Indication s: history of deep vein thrombosis apixaban 5 2022-0 2022- Yes 5523 5mg Take 1 Univ ers mg tablet 4-25 05-26 tablet by ity of 00:00: 04:59 mouth in [place] 00 :00 [facility] [place] and 1 tablet in the evening. Do [...] -07 07- tablet by ity of 00:00: 04:59 mouth in [place] 00 :00 the Medical morning Branch and 1 tablet in the evening. Do all this for 30 days. Indication s: history of deep vein thrombosis apixaban 5 2022- Yes 5523 5mg Take 1 Univ ers mg tablet -07 07- tablet by ity of 00:00: 04:59 mouth [...] tablet 06-07- tablet by ity of 00:00: 00:00 mouth in [place] 00 :00 the Medical morning Branch and 1 tablet in the evening. Do all this for 30 days. Indication s: history of deep vein thrombosis acetaminoph 2022- Yes [id number] 500mg Take 1 Univers en 500 mg 4-25 05-06 tablet by ity of tablet 00:00: 04:59 mouth [place] 00 :00 every 6 Medical (six) Branch hours as needed for Pain for up to 10 days. acetaminoph 2022- Yes [id number] 500mg Take 1 Univers en 500 mg 4-25 05-06 tablet by ity of tablet 00:00: 04:59 mouth [place] 00 :00 every 6 Medical (six) Branch hours as needed for Pain for up to 10 days. acetaminoph 2022- Yes [id number] 500mg Take 1 Univers en 500 mg 4-25 05-06 tablet by ity of tablet 00:00: 04:59 mouth [place] 00 :00 every 6 Medical (six) Branch hours as needed for Pain for up to 10 days. acetaminoph 2022- Yes [id number] 500mg Take 1 Univers en 500 mg 4-25 05-06 tablet by ity of tablet 00:00: 04:59 mouth [place] 00 :00 every 6 Medical (six) Branch hours as needed for Pain for up to 10 days. acetaminoph 2022- Yes [id number] 500mg Take 1 Univers en 500 mg 4-25 05-06 tablet by ity of tablet 00:00: 04:59 mouth [place] 00 :00 every 6 Medical (six) Branch hours as needed for Pain for up to 10 days. acetaminoph 2022- Yes [id number] 500mg Take 1 Univers en 500 mg 4-25 05-06 tablet by ity of tablet 00:00: 04:59 mouth [place] 00 :00 every 6 Medical (six) Branch hours as needed for Pain for up to 10 days. acetaminoph 2022- Yes [id number] 500mg Take 1 Univers en 500 mg 4-25 05-06 tablet by ity of tablet 00:00: 04:59 mouth [place] 00 :00 every 6 Medical (six) Branch hours as needed for Pain for up to 10 days. docusate 2022- Yes [id number] 100mg Take 1 Univers 100 mg 4-25 [...] Indication s: acute pain polyethylen 2022- Yes [id number] 17g Take 1 Univers e glycol 4-25 05-03 Packet by ity o f 3350 17 00:00: 04:59 mouth [place] gram powder 00 :00 every 24 Medi gordon (twenty-fo Branch ur) hours as needed for Constipati on for up to 7 days. docusate 2022- Yes [id number] 100mg Take 1 Univers 100 mg 4-25 [...] Indication s: acute pain polyethylen 2022- Yes [id number] 17g Take 1 Univers e glycol 4-25 05-03 Packet by ity o f 3350 17 00:00: 04:59 mouth [place] gram powder 00 :00 every 24 Medi gordon (twenty-fo Branch ur) hours as needed for Constipati on for up to 7 days. docusate 2022- Yes [id number] 100mg Take 1 Univers 100 mg 4-25 05-03 capsule by ity of capsule 00:00: 04:59 mouth in [place] 00 :00 the [facility] Branch for 7 days. HYDROcodone 2022- Yes [id number] 1{tbl} Take 1 U nivers -acetaminop 4-25 05-03 tablet by it y of hen 10-325 00:00: 04:59 mouth [place] mg tablet 00 :00 every 6 Medical (six) Branch hours as needed for Pain (scale 7-10) or Pain (scale 4-6) for up to 7 days. Indication s: acute pain polyethylen 2022- Yes [id number] 17g Take 1 Univers e glycol 4-25 05-03 Packet by ity o f 3350 17 00:00: 04:59 mouth [place] gram powder 00 :00 every 24 Medi gordon (twenty-fo Branch ur) hours as needed for Constipati on for up to 7 days. docusate 2022-2022- Yes [id number] 100mg Take 1 Univers 100 mg 4-25 05-03 capsule by ity of capsule 00:00: 04:59 mouth in [place] 00 :00 the [facility] Branch for 7 days. HYDROcodone 2022- Yes [id number] 1{tbl} Take 1 U nivers -acetaminop 4-25 05-03 tablet by it y of hen 10-325 00:00: 04:59 mouth [place] mg tablet 00 :00 every 6 Medical (six) Branch hours as needed for Pain (scale 7-10) or Pain (scale 4-6) for up to 7 days. Indication s: acute pain polyethylen 2022- Yes [id number] 17g Take 1 Univers e glycol 06-07 05-03 Packet by ity o f 3350 17 00:00: 04:59 mouth [place] gram powder 00 :00 every 24 Medi gordon (twenty-fo Branch ur) hours as needed for Constipati on for up to 7 days. benzocaine- Yes 1{lozen 1 Lozenge, Univers menthoL 4-23 ge} Oral, ity of (CEPACOL 05:03: Q4HPRN, [place] SORE THROAT 14 Starting Medi gordon (CLAUDIA-MEN)) on [facility] lozenge 1 06/05/22 at Lozenge 0003, Until Discontinu ed, Routine, Sore throat benzocaine- 0 Yes 1{lozen 1 Lozenge, Univers menthoL 4-23 ge} Oral, ity of (CEPACOL 05:03: Q4HPRN, [place] SORE THROAT 14 Starting Medi gordon (CLAUDIA-MEN)) on [facility] lozenge 1 06/05/22 at Lozenge 0003, Until Discontinu ed, Routine, Sore throat iopamidol 2022- No [id number] 80mL 80 mL, Univers (ISOVUE 06-05 Intravenou ity o f 370-500 mL) 01:36: 01:20 s, ONCE, 1 [place] injection 00 :00 dose, On Medica l 80 mL [facility] 06/04/22 at 204, Routine apixaban 2022- Yes [...] 5 mg, Oral, BID, First dose on [facility] 06/11/22 at 1999, Until Discontinu ed, Routine
Indicatio ns: DVT/PE [Order 2 End] apixaban 2022- Yes 10mg [Order 1 Univ ers (ELIQUIS) 06-0530 Start] ity of tablet 10 01:00: 00:59 Name: [place] mg 00 :00 [facility]ix[facility] (ELIQUIS) [place] tablet 10 mg Signed Summary: 10 mg, Oral, BID, 14 doses, First dose on [facility] 06/04/22 at 1999, Last dose on [facility] 06/11/22 at 0800, Routine
Indicatio ns: DVT/PE [Order 1 End] [Order 2 Start] Name: apixaban (ELIQUIS) tablet 5 mg Signed Summary: 5 mg, Oral, BID, First dose on [facility] 06/11/22 at 1999, Until Discontinu ed, Routine
Indicatio ns: DVT/PE [Order 2 End] bisacodyL Yes 10mg 10 mg, Univer s (DULCOLAX) 06-04 Rectal, ity of suppository 15:25: QDAILYPRN, [place] 10 mg 51 Starting Medical on [facility] 06/04/22 at 1025, Until Discontinu ed, Routine, Constipati on bisacodyL Yes 10mg 10 mg, Univer s (DULCOLAX) 06-04 Rectal, ity of suppository 15:25: QDAILYPRN, [place] 10 mg 51 Starting Medical on [facility] 06/04/22 at 1025, Until Discontinu ed, Routine, Constipati on argatroban 2022- No .15ug/k 0.15-2 U nivers 50 mg in 06-04 04-22 g/min mcg/kg/min ity of 0.9% NaCl 08:24: 21:59 ?86.5 kg [place] as 50 mL RTU 03 :11 (0.7785-10 Medi gordon IV infusion .38 mL/hr, Br anch rounded to 0.78-10.38 mL/hr), IV Infusion, TITRATE, Parameters in Admin. Instr., Starting on [facility] 06/04/22 at 0324
No rmal dosage for [...] 202- No 0U/h 0-3,050 Univer s 25,000 06-02 [...] INITIAL INFUSION RATE.&nbsp ; _ &nb sp;FOR [place], [facility], AND [facility] ONLY &nbs p; - aPTT < [...] Oral, ity of OIL EXTRA 14:00: DAILY, [place] HEAVY) oral 00 First dose Me dical liquid 30 on [place] [facility] mL 06/02/22 at 0900, Until Discontinu ed, Routine mineral oil Yes 30mL 30 mL, Univ ers (MINERAL 4-20 Oral, ity of OIL EXTRA 14:00: DAILY, [place] HEAVY) oral 00 First dose Me dical [...] s mg 00 First dose Medical on [facility] 05/31/22 at 0900, Until Discontinu ed, Routine docusate 0 Yes 100mg 100 mg, Unive rs (COLACE) -18 Oral, ity of capsule 100 14:00: DAILY, [place] 00 First dose Medical on [facility] 05/31/22 at 0900, Until Discontinu ed, Routine docusate 0 Yes 100mg 100 mg, Unive rs (COLACE) 4-18 Oral, ity of capsule 100 14:00: DAILY, [place] mg 00 First dose Medical on [facility] 05/31/22 at 0900, Until Discontinu ed, Routine docusate 0 Yes 100mg 100 mg, Unive rs (COLACE) -18 Oral, ity of capsule 100 14:00: DAILY, [place] mg 00 First dose Medical on [facility] 05/31/22 at 0900, Until Discontinu ed, Routine [...] INITIAL INFUSION RATE.&nbsp ; _ &nb sp;FOR [place], [facility], AND [facility] ONLY &nbs p; - aPTT < [...] 02:47: [place] 05/30/[address] Until Discontinu ed, Routine, Intra-op iopamidol 2022-0 Yes PRN, Univers (ISOVUE-300 4-18 Starting ity of ) injection 02:47: on Mon [place] 05/30/[address] Until Discontinu ed, Routine, Intra-op iopamidol 2022-0 Yes PRN, Univers (ISOVUE-300 4-18 Starting ity of ) injection 02:47: on Mon [place] 05/30/[address] Until Discontinu ed, Routine, Intra-op heparin 2022-0 Yes PRN, Univers 10,000 4-18 Starting ity of units in NS 01:26: on [place] 1000 mL for 05/30/22 at [place] dical vascular 2025, Branch Intra-op heparin 2022-0 [...] Mon Branch 05/30/22 at 0615, Routine heparin 2022-0 [...] INITIAL INFUSION RATE.&nbsp ; _ &nb sp;FOR [place], [facility], AND [facility] ONLY &nbs p; - aPTT < 35: [...] mg 53 Q4HPRN, Medical Starting Branch on [place] 05/29/22 at 2231, Until Discontinu ed, Routine, SBP > 160 and HR > 70 traMADoL 2022-0 Yes 50mg 50 mg, Univers (ULTRAM) 4-17 Oral, Q6H, ity o f tablet 50 01:45: First dose [place] mg 00 on [facility] 05/29/22 at Branch 2044, Until Discontinu ed, Routine traMADoL 2022-0 Yes 50mg 50 mg, Univers (ULTRAM) 4-17 Oral, Q6H, ity o f tablet 50 01:45: First dose [place] mg 00 on [facility] 05/29/22 at Branch 2044, Until Discontinu ed, Routine traMADoL 2022-0 Yes 50mg 50 mg, Univers (ULTRAM) 4-17 Oral, Q6H, ity o f tablet 50 01:45: First dose [place] mg 00 on [facility] 05/29/22 at Branch 2044, Until Discontinu ed, Routine traMADoL 2022-0 Yes 50mg 50 mg, Univers (ULTRAM) 4-17 Oral, Q6H, ity o f tablet 50 01:45: First dose [place] mg 00 on [facility] 05/29/22 at Branch 2044, Until Discontinu ed, Routine HYDROcodone 2022-0 Yes 1{tbl} 1 tablet, Univers -acetaminop 4-17 Oral, ity of hen (NORCO) 01:37: Q6HPRN, [place] 10-325 mg 54 Starting Medica l tablet 1 on [facility] tablet 05/29/22 at 2036, Until Discontinu ed, Routine, Pain (scale 7-10), Pain (scale 4-6) HYDROcodone 2022-0 Yes 1{tbl} 1 tablet, Univers -acetaminop 4-17 Oral, ity of hen (NORCO) 01:37: Q6HPRN, [place] 10-325 mg 54 Starting Medica l tablet 1 on [place] [facility] tablet 05/29/22 at 2036, Until Discontinu ed, Routine, Pain (scale 7-10), Pain (scale 4-6) HYDROcodone 2023-0 Yes 1{tbl} 1 tablet, Univers -acetaminop 4-17 [...] Medical mg last Branch modificati on) on [place] 05/29/22 at 1215, Until Discontinu ed, Routine acetaminoph 2022- Yes 500mg 500 mg, Un mary en 16 Oral, Q6H, ity of (TYLENOL) 17:15: First dose [place] tablet 500 00 (after Medical mg last Branch modificati on) on [place] 05/29/22 at 1215, Until Discontinu ed, Routine HYDROcodone 2022-2022- No 1{tbl} 1 tablet, Univers -acetaminop 05-2917 Oral, ity of hen (NORCO 17:03: 01:38 Q6HPRN, [place] 5) 5-325 mg 06 :07 Starting [facility] tablet 1 on [facility] tablet 05/29/22 at 1203, Until 05/29/22 at 2038, Routine, Pain (scale 4-6), Pain (scale 7-10) heparin 2022-0 202- No 300U/h 300 Univers 25,000 05-29-17 Units/hr ity of Units/250 15:46: 14:20 (3 mL/hr), [place] mL 48 :43 IV Medical (Premixed Infusion, Branc h Bag) in TITRATE, 0.45 % NS Parameters in Admin. Instr., Starting on [place] 05/29/22 at 1046
30 0 units/hr, non-titrat able
iodixanoL 2022-0 Yes PRN, Univers (VISIPAQUE -16 Starting ity o f 270-150 mL) 13:50: on [place] injection 00 05/29/22 at [facility] 08, Branch Until Discontinu ed, Routine, Intra-op iodixanoL 2023-0 Yes PRN, Univers (VISIPAQUE 4-16 Starting ity o f 270-150 mL) 13:50: on [place] injection 00 05/29/22 at [facility] 08, Branch Until Discontinu ed, Routine, Intra-op iodixanoL 2023-0 Yes PRN, Univers (VISIPAQUE 4-16 Starting ity o f 270-150 mL) 13:50: on [place] injection 00 05/29/22 at [facility] 0850, Branch Until Discontinu ed, Routine, Intra-op iodixanoL 2023-0 Yes PRN, Univers (VISIPAQUE 4-16 Starting ity o f 270-150 mL) 13:50: on [place] injection 05/29/22 at [facility] 0850, Branch Until Discontinu ed, Routine, Intra-op lidocaine 2023-0 Yes PRN, Univers 1% (PF) 4-16 Starting ity of (XYLOCAINE) 13:00: on [place] injection 05/29/22 at [facility] 0800, Branch Until Discontinu ed, Routine, Intra-op lidocaine 2023-0 Yes PRN, Univers 1% (PF) 4-16 Starting ity of (XYLOCAINE) 13:00: on [place] injection 05/29/22 at [facility] 0800, Branch Until Discontinu ed, Routine, Intra-op lidocaine 2023-0 Yes PRN, Univers 1% (PF) 4-16 Starting ity of (XYLOCAINE) 13:00: on [place] injection 05/29/22 at [facility] 08, Branch Until Discontinu ed, Routine, Intra-op lidocaine 2023-0 Yes PRN, Univers 1% (PF) 4-16 Starting ity of (XYLOCAINE) 13:00: on [place] injection 05/29/22 at [facility] 08, Branch Until Discontinu ed, Routine, Intra-op [...] sites combined.< br> alteplase 3-0 2023- No 1mg/h 1 mg/hr [...] Rang e, Dosing and Testing: &nbs p;FOR [place], [facility], AND [facility] ONLY &nbs p; - aPTT < [...] , Starting [place] mL vial) 36 on [facility] for 05/28/22 at Branch Rebolusing 1123, Until Discontinu ed, Routine
Dosing based on aPPT testing parameters (refer to continuous heparin drip order).
sulfur 2022- No [id number] 5mL 5 mL, Univ ers hexafluorid 05-27 Intravenou i ty of e microsphr 18:30: 18:30 s, ONCE, 1 [place] (LUMASON) 00 :00 dose, On Medica l injection 5 Mon [facility] 05/27/22 at 1330, Routine
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 Restricted medication : HAROON [...] g 00 First dose Medical on [place] 05/27/22 at 0900, Until Discontinu ed, Routine [...] Until Discontinu ed, Routine iopamidol 2022- No [id number] 100mL 100 mL, Univers (ISOVUE 05-27 [id number] Intravenou ity of 370-500 mL) 12:15: 12:15 [...] 48 :01 Starting Medica l mg on [facility] Branch 05/26/22 at 2347, Until 05/29/22 at 1203, Routine, Muscle Spasms HYDROcodone 2022- No 1{tbl} 1 tablet, Univers -acetaminop 05-27 Oral, ity of hen (NORCO 04:44: 17:03 Q6HPRN, [place] 5) 5-325 mg 15 :15 Starting Medi gordon tablet 1 on [facility] Branch tablet 05/26/22 at 2344, Until 05/29/22 at 1203, Routine, Pain (scale 4-6) ondansetron 3-0 Yes 4mg 4 mg, Slow Univers (ZOFRAN 4-14 IV Push, ity of (PF)) 01:30: Q6HPRN, [place] injection 4 58 Starting Medi gordon mg on [facility] Branch 05/26/22 at 2030, Until Discontinu ed, Routine, Nausea and Vomiting (N/V) ondansetron 2023-0 Yes 4mg 4 mg, Slow Univers (ZOFRAN 4-14 IV Push, ity of (PF)) 01:30: Q6HPRN, [place] injection 4 58 Starting Medi gordon mg on [facility] Branch 05/26/22 at 2030, Until Discontinu ed, Routine, Nausea and Vomiting (N/V) ondansetron 2023-0 Yes 4mg 4 mg, Slow Univers (ZOFRAN 4-14 IV Push, ity of (PF)) 01:30: Q6HPRN, [place] injection 4 58 Starting Medi gordon mg on [facility] 05/26/22 at 2030, Until Discontinu ed, Routine, Nausea and Vomiting (N/V) ondansetron 3-0 Yes 4mg 4 mg, Slow Univers (ZOFRAN 4-14 IV Push, ity of (PF)) 01:30: Q6HPRN, [place] injection 4 58 Starting Medi gordon mg on [facility] 05/26/22 at 2030, Until Discontinu ed, Routine, Nausea and Vomiting (N/V) morpHINE (2 2022- No 4mg 4 mg, Slow Univers mg/mL) 05-27 IV Push, ity of injection 4 01:30: 01:29 Q4HPRN, [place] mg 55 :55 Starting Medical on [facility] Branch 05/26/22 at 2030, Until Mon05/27/22 at 2029, Routine, Pain (scale 7-10) methocarbam 2022- No 500mg 500 mg, U nivers oL 05-27 Oral, ity of (ROBAXIN) 00:00: 23:10 ONCE, 1 [place] tablet 500 00 :00 dose, On Medic al mg [facility] Branch 05/26/22 at 1900, Routine traMADoL 2022- No 50mg 50 mg, Univer s (ULTRAM) 05-26 Oral, ity of tablet 50 23:45: 23:10 ONCE, 1 [place] mg 00 :00 dose, On [facility] 05/26/22 at 1845, Routine gabapentin 2022- No 300mg 300 mg, Un mary (NEURONTIN) 05-26 Oral, ity of capsule 300 23:00: 23:10 ONCE, 1 [place] mg 00 :00 dose, On [facility] 05/26/22 at 1800, MICHELLE methylpredn 2022- [...] s 40 mg 00 :00 dose, On [facility] 05/26/22 at 1615, MICHELLE ketorolac No 30mg 30 mg, Unive rs (TORADOL) 05-23 Intramuscu ity of injection 23:00: 22:35 lar, ONCE, [place] 30 mg 00 :00 1 dose, On [facility] 05/23/22 at 1800, Routine diazePAM No 2.5mg 2.5 mg, Univ ers (VALIUM) 05-23 Oral, ity of tablet 2.5 22:45: 23:09 ONCE, 1 [place] mg 00 :00 dose, On [facility] Branch 05/23/22 at 1745, MICHELLE HYDROcodone 2022- No 1{tbl} 1 tablet, Univers -acetaminop 05-23 Oral, ONCE i ty of hen (NORCO) 11:45: 11:00 NOW, 1 [place] 10-325 mg 00 :00 dose, On Medica l tablet [address] [facility] Branch tablet 05/23/22 at 0645, MICHELLE gabapentin 2023-0 2023- No 600mg 600 mg, Un mary (NEURONTIN) 4-11 16-10 Oral, ity of capsule 600 09:00: 09:09 ONCE, 1 [place] mg 00 :00 dose, On Medical Mon Branch 05/23/22 at 0400, MICHELLE dexamethaso 2023-0 2023- No 10mg 10 mg, Uni vers ne sod phos 05-2310 Intramuscu i ty of PF 09:00: 09:07 lar, ONCE, [place] injection 00 :00 1 dose, On Medi gordon [address] [facility] Branch 05/23/22 at 0400, 1 mL gabapentin 2022-0 Yes [id number] 300mg Take 1 Univers 300 mg 4-10 capsule by ity of capsule 00:00: mouth in [address] and 1 capsule at noon and 1 capsule in the evening. gabapentin 2023-0 Yes [id number] 300mg Take 1 Univers 300 mg 4-10 capsule by ity of capsule 00:00: mouth in [address] and 1 capsule at noon and 1 capsule in the evening. gabapentin 2023-0 Yes [id number] 300mg Take 1 Univers 300 mg 4-10 capsule by ity of capsule 00:00: mouth in [address] morning [place] and 1 capsule at noon and 1 capsule in the evening. ketorolac 2023-0 Yes [id number] 10mg Take 1 U nivers 10 mg 4-10 tablet by ity of tablet 00:00: mouth [place] [address] every 6 Medical (six) Branch hours as needed for Pain (scale 7-10). gabapentin 2023-0 Yes [id number] 300mg Take 1 Univers 300 mg 4-10 capsule by ity of capsule 00:00: mouth in [address] morning [place] and 1 capsule at noon and 1 capsule in the evening. ketorolac 2023-0 Yes [id number] 10mg Take 1 U nivers 10 mg 4-10 tablet by ity of tablet 00:00: mouth [place] [address] every 6 Medical (six) Branch hours as needed for Pain (scale 7-10). gabapentin 2023-0 Yes [id number] 300mg Take 1 Univers 300 mg 4-10 capsule by ity of capsule 00:00: mouth in [place] 00 the Medical morning Branch and 1 capsule at noon and 1 capsule in the evening. ketorolac 2023-0 Yes [id number] 10mg Take 1 U nivers 10 mg 4-10 tablet by ity of tablet 00:00: mouth [place] 00 every 6 Medical (six) Branch hours as needed for Pain (scale 7-10). gabapentin 2023-0 Yes [id number] 300mg Take 1 Univers 300 mg 4-10 capsule by ity of capsule 00:00: mouth in [place] 00 the Medical morning Branch and 1 capsule at noon and 1 capsule in the evening. ketorolac 2023-0 Yes [id number] 10mg Take 1 U nivers 10 mg 4-10 tablet by ity of tablet 00:00: mouth [place] 00 every 6 Medical (six) Branch hours as needed for Pain (scale 7-10). gabapentin 2023-0 Yes [id number] 300mg Take 1 Univers 300 mg 4-10 capsule by ity of capsule 00:00: mouth in [place] 00 the Medical morning Branch and 1 capsule at noon and 1 capsule in the evening. ketorolac 2023-0 Yes [id number] 10mg Take 1 U nivers 10 mg 4-10 tablet by ity of tablet 00:00: mouth [place] 00 every 6 Medical (six) Branch hours as needed for Pain (scale 7-10). gabapentin 2023-0 Yes [id number] 300mg Take 1 Univers 300 mg 4-10 capsule by ity of capsule 00:00: mouth in [place] 00 the Medical morning Branch and 1 capsule at noon and 1 capsule in the evening. ketorolac 2023-0 Yes [id number] 10mg Take 1 U nivers 10 mg 4-10 tablet by ity of tablet 00:00: mouth [place] 00 every 6 Medical (six) Branch hours as needed for Pain (scale 7-10). gabapentin 2023-0 2023- No [id number] 300mg Take 1 Univers 300 mg 4-10 04-25 capsule by ity of capsule 00:00: 00:00 mouth in [place] 00 :00 the Medical morning Branch and 1 capsule at noon and 1 capsule in the evening. methocarbam 2023-0 2023- No [id number] 500mg Take 1 Univers oL 500 mg 4-10 04-25 tablet by ity of tablet 00:00: 00:00 mouth 4 [place] 00 :00 (four) Medical times Branch daily for 7 days. ketorolac 2022-2022- No [id number] 10mg Take 1 Univers 10 mg 4-10 -25 tablet by ity of tablet 00:00: 00:00 mouth [place] 00 :00 every 6 Medical (six) Branch hours as needed for Pain (scale 7-10). methocarbam 2022-0 2022- Yes [id number] 500mg Take 1 Univers oL 500 mg 4-10 -18 tablet by ity of tablet 00:00: 04:59 mouth 4 [place] 00 :00 (four) Medical times Branch daily for 7 days. methocarbam 2022-0 2022- Yes [id number] 500mg Take 1 Univers oL 500 mg 4-11 16-18 tablet by ity of tablet 00:00: 04:59 mouth 4 [place] 00 :00 (four) Medical times Branch daily for 7 days. methocarbam 2022-0 2022- Yes [id number] 500mg Take 1 Univers oL 500 mg 4-10 -18 tablet by ity of tablet 00:00: 04:59 mouth 4 [place] 00 :00 (four) Medical times Branch daily for 7 days. methocarbam 2022-0 2022- No [id number] 500mg Take 1 Univers oL 500 mg 4-10 -18 tablet by ity of tablet 00:00: 04:59 mouth 4 [place] 00 :00 (four) Medical times Branch daily for 7 days. methocarbam 2022-0 2022- No [id number] 500mg Take 1 Univers oL 500 mg 4-10 -18 tablet by ity of tablet 00:00: 04:59 mouth 4 [place] 00 :00 (four) Medical times Branch daily for 7 days. mirtazapine 2022-0 Yes [id number] 45mg Take 1 Univers 45 mg 2-23 tablet by ity of tablet 00:00: mouth at [place] 00 bedtime. Medical Branch mirtazapine 3-0 Yes [id number] 45mg Take 1 Univers 45 mg 2-23 tablet by ity of tablet 00:00: mouth at [place] [address] bedtime. Medical Branch mirtazapine 3-0 Yes [id number] 45mg Take 1 Univers 45 mg 2-23 tablet by ity of tablet 00:00: mouth at [place] [address] bedtime. Medical Branch mirtazapine 2023-0 Yes [id number] 45mg Take 1 Univers 45 mg 2-23 tablet by ity of tablet 00:00: mouth at [place] [address] bedtime. Medical Branch mirtazapine 3-0 Yes [id number] 45mg Take 1 Univers 45 mg 2-23 tablet by ity of tablet 00:00: mouth at [place] [address] bedtime. Medical Branch mirtazapine 3-0 Yes [id number] 45mg Take 1 Univers 45 mg 2-23 tablet by ity of tablet 00:00: mouth at [place] [address] bedtime. Medical Branch mirtazapine 3-0 Yes [id number] 45mg Take 1 Univers 45 mg 2-23 tablet by ity of tablet 00:00: mouth at [place] [address] bedtime. Medical Branch mirtazapine 3-0 Yes [id number] 45mg Take 1 Univers 45 mg 2-23 tablet by ity of tablet 00:00: mouth at [place] [address] bedtime. Medical Branch mirtazapine 2022-0 Yes [id number] 45mg Take 1 Univers 45 mg 2-23 tablet by ity of tablet 00:00: mouth at [place] [address] bedtime. Medical Branch mirtazapine 2022-0 Yes [id number] 45mg Take 1 Univers 45 mg 2-23 tablet by ity of tablet 00:00: mouth at [place] [address] bedtime. Medical Branch mirtazapine 3-0 Yes [id number] 45mg Take 1 Univers 45 mg 2-23 tablet by ity of tablet 00:00: mouth at [place] [address] bedtime. Medical Branch mirtazapine 3-0 Yes [id number] 45mg Take 1 Univers 45 mg 2-23 tablet by ity of tablet 00:00: mouth at [place] [address] bedtime. Medical Branch mirtazapine 3-0 Yes [id number] 45mg Take 1 Univers 45 mg 2-23 tablet by ity of tablet 00:00: mouth at [place] [address] bedtime. Medical Branch mirtazapine 2023-0 Yes [id number] 45mg Take 1 Univers 45 mg 2-23 tablet by ity of tablet 00:00: mouth at [place] [address] bedtime. Medical Branch mirtazapine 3-0 Yes [id number] 45mg Take 1 Univers 45 mg 2-23 tablet by ity of tablet 00:00: mouth at [place] [address] bedtime. Medical Branch mirtazapine 2023-0 Yes [id number] 45mg Take 1 Univers 45 mg 2-23 tablet by ity of tablet 00:00: mouth at [place] [address] bedtime. Medical Branch mirtazapine 2022-0 Yes [id number] 45mg Take 1 Univers 45 mg 2-23 tablet by ity of tablet 00:00: mouth at [place] [address] bedtime. Medical Branch mirtazapine 2022-0 Yes [id number] 45mg Take 1 Univers 45 mg 2-23 tablet by ity of tablet 00:00: mouth at [place] [address] bedtime. Medical Branch mirtazapine 2022-0 Yes [id number] 45mg Take 1 Univers 45 mg 2-23 tablet by ity of tablet 00:00: mouth at [place] [address] bedtime. Medical Branch mirtazapine 2022-0 Yes [id number] 45mg Take 1 Univers 45 mg 2-23 tablet by ity of tablet 00:00: mouth at [place] [address] bedtime. Medical Branch mirtazapine 2022-0 Yes [id number] 45mg Take 1 Univers 45 mg 2-23 tablet by ity of tablet 00:00: mouth at [place] [address] bedtime. Medical Branch mirtazapine 2022-0 Yes [id number] 45mg Take 1 Univers 45 mg 2-23 tablet by ity of tablet 00:00: mouth at [place] [address] bedtime. Medical Branch mirtazapine 2022-0 Yes [id number] 45mg Take 1 Univers 45 mg 2-23 tablet by ity of tablet 00:00: mouth at [place] [address] bedtime. Medical Branch mirtazapine 2022-0 Yes [id number] 45mg Take 1 Univers 45 mg 2-23 tablet by ity of tablet 00:00: mouth at [place] [address] bedtime. Medical Branch mirtazapine 2022-0 Yes [id number] 45mg Take 1 Univers 45 mg 2-23 tablet by ity of tablet 00:00: mouth at [place] [address] bedtime. Medical Branch mirtazapine 2022-0 3- No [id number] 45mg Take 1 Univers 45 mg 2-23 04-25 tablet by ity of tablet 00:00: 00:00 mouth at [place] 00 :00 bedtime. Medical Branch mirtazapine 2021-1 Yes [id number] 30mg Take 1 Univers 30 mg 2-21 tablet by ity of tablet 00:00: mouth at [place] [address] bedtime. Medical Branch mirtazapine 2021-02 Yes [id number] 30mg Take 1 Univers 30 mg 2-21 tablet by ity of tablet 00:00: mouth at [place] [address] bedtime. Medical Branch mirtazapine 2021-02 Yes [id number] 30mg Take 1 Univers 30 mg 2-21 tablet by ity of tablet 00:00: mouth at [place] [address] bedtime. Medical Branch mirtazapine 2021-02 Yes [id number] 30mg Take 1 Univers 30 mg 2-21 tablet by ity of tablet 00:00: mouth at [place] [address] bedtime. Medical Branch mirtazapine 2021-02 Yes [id number] 30mg Take 1 Univers 30 mg 2-21 tablet by ity of tablet 00:00: mouth at [place] [address] bedtime. Medical Branch mirtazapine 2021-02 Yes [id number] 30mg Take 1 Univers 30 mg 2-21 tablet by ity of tablet 00:00: mouth at [place] [address] bedtime. Medical Branch mirtazapine 2021-02 Yes [id number] 30mg Take 1 Univers 30 mg 2-21 tablet by ity of tablet 00:00: mouth at [place] [address] bedtime. Medical Branch mirtazapine 2021-02 Yes [id number] 30mg Take 1 Univers 30 mg 2-21 tablet by ity of tablet 00:00: mouth at [place] [address] bedtime. Medical Branch mirtazapine 2021-02 Yes [id number] 30mg Take 1 Univers 30 mg 2-21 tablet by ity of tablet 00:00: mouth at [place] [address] bedtime. Medical Branch mirtazapine 2021-02- No [id number] 30mg Take 1 Univers 30 mg 2-21 02-23 tablet by ity of tablet 00:00: 00:00 mouth at [place] 00 :00 bedtime. Medical Branch mirtazapine 2021-02- No [id number] 30mg Take 1 Univers 30 mg 2-21 02-23 tablet by ity of tablet 00:00: 00:00 mouth at [place] 00 :00 bedtime. Medical Branch traMADoL 50 2021-02 Yes 50mg Take 1 Univ ers mg tablet 2-08 tablet by ity o f 00:00: mouth in [place] 00 the Medical morning Branch and 1 tablet at noon and 1 tablet in the evening. traMADoL 50 2021-02 Yes 50mg Take 1 Univ ers mg tablet 2-08 tablet by ity o f 00:00: mouth in [place] the Medical morning Branch and 1 tablet at noon and 1 tablet in the evening. traMADoL 50 2021-02 Yes 50mg Take 1 Univ ers mg tablet 2-08 tablet by ity o f 00:00: mouth in [place] 00 the Medical morning Branch and 1 tablet at noon and 1 tablet in the evening. traMADoL 50 2021-02 Yes 50mg Take 1 Univ ers mg tablet 2-08 tablet by ity o f 00:00: mouth in [place] 00 the Medical morning Branch and 1 tablet at noon and 1 tablet in the evening. traMADoL 50 2021-02 Yes 50mg Take 1 Univ ers mg tablet 2-08 tablet by ity o f 00:00: mouth in [place] [address] the Medical morning Branch and 1 tablet at noon and 1 tablet in the evening. traMADoL 50 2021-02 Yes 50mg Take 1 Univ ers mg tablet 2-08 tablet by ity o f 00:00: mouth in [place] the Medical morning Branch and 1 tablet at noon and 1 tablet in the evening. traMADoL 50 2021-02 Yes 50mg Take 1 Univ ers mg tablet 2-08 tablet by ity o f 00:00: mouth in [place] the Medical morning Branch and 1 tablet at noon and 1 tablet in the evening. traMADoL 50 2021-02 Yes 50mg Take 1 Univ ers mg tablet 2-08 tablet by ity o f 00:00: mouth in [place] the Medical morning Branch and 1 tablet at noon and 1 tablet in the evening. traMADoL 50 2021-02 Yes 50mg Take 1 Univ ers mg tablet 2-08 tablet by ity o f 00:00: mouth in [place] the Medical morning Branch and 1 tablet at noon and 1 tablet in the evening. traMADoL 50 2021- Yes 50mg Take 1 Univ ers mg tablet 2-08 tablet by ity o f 00:00: mouth in [place] [address] the Medical morning Branch and 1 tablet at noon and 1 tablet in the evening. traMADoL 50 2021-02 Yes 50mg Take 1 Univ ers mg tablet 2-08 tablet by ity o f 00:00: mouth in [place] [address] the Medical morning Branch and 1 tablet at noon and 1 tablet in the evening. traMADoL 50 2021-02 Yes 50mg Take 1 Univ ers mg tablet 2-08 tablet by ity o f 00:00: mouth in [place] 00 the Medical morning Branch and 1 tablet at noon and 1 tablet in the evening. traMADoL 50 2021-02 Yes 50mg Take 1 Univ ers mg tablet 2-08 tablet by ity o f 00:00: mouth in [place] 00 the Medical morning Branch and 1 tablet at noon and 1 tablet in the evening. traMADoL 50 2021-02 Yes 50mg Take 1 Univ ers mg tablet 2-08 tablet by ity o f 00:00: mouth in [place] [address] the Medical morning Branch and 1 tablet at noon and 1 tablet in the evening. traMADoL 50 2021-02 Yes 50mg Take 1 Univ ers mg tablet 2-08 tablet by ity o f 00:00: mouth in [place] [address] the Medical morning Branch and 1 tablet at noon and 1 tablet in the evening. traMADoL 50 2021-02 Yes 50mg Take 1 Univ ers mg tablet 2-08 tablet by ity o f 00:00: mouth in [place] [address] the Medical morning Branch and 1 tablet at noon and 1 tablet in the evening. traMADoL 50 2021-02 Yes 50mg Take 1 Univ ers mg tablet 2-08 tablet by ity o f 00:00: mouth in [place] [address] the Medical morning Branch and 1 tablet at noon and 1 tablet in the evening. traMADoL 50 2021-02 Yes 50mg Take 1 Univ ers mg tablet 2-08 tablet by ity o f 00:00: mouth in [place] [address] the Medical morning Branch and 1 tablet at noon and 1 tablet in the evening. traMADoL 50 2021-02 Yes 50mg Take 50 mg Univers mg tablet 2-08 by mouth ity of 00:00: in the [place] [address] morning Medical and 50 mg Branch at noon and 50 mg in the evening. traMADoL 50 2021-02 Yes 50mg Take 50 mg Univers mg tablet 2-08 by mouth ity of 00:00: in the [place] morning Medical and 50 mg Branch at noon and 50 mg in the evening. traMADoL 50 2021-02 Yes 50mg Take 50 mg Univers mg tablet 2-08 by mouth ity of 00:00: in the [place] morning Medical and 50 mg Branch at noon and 50 mg in the evening. traMADoL 50 2021-02 Yes 50mg Take 50 mg [facility] mg tablet 2-08 by mouth ity of 00:00: in the [place] 00 morning Medical and 50 mg Branch at noon and 50 mg in the evening. traMADoL 50 2021-02 Yes 50mg Take 50 mg [facility] mg tablet 2-08 by mouth ity of 00:00: in the [place] 00 morning Medical and 50 mg Branch at noon and 50 mg in the evening. traMADoL 50 2021-02 Yes 50mg Take 50 mg [facility] mg tablet 2-08 by mouth ity of 00:00: in the [place] 00 morning Medical and 50 mg Branch at noon and 50 mg in the evening. traMADoL 50 2021-02 Yes 50mg Take 50 mg [facility] mg tablet 2-08 by mouth ity of 00:00: in the [place] 00 morning Medical and 50 mg Branch at noon and 50 mg in the evening. traMADoL 50 2021-02 Yes 50mg Take 50 mg [facility] mg tablet 2-08 by mouth ity of 00:00: in the [place] morning Medical and 50 mg Branch at noon and 50 mg in the evening. traMADoL 50 2021-02 Yes 50mg Take 50 mg [facility] mg tablet 2-08 by mouth ity of 00:00: in the [place] morning Medical and 50 mg Branch at noon and 50 mg in the evening. traMADoL 50 2021-02 Yes 50mg Take 50 mg [facility] mg tablet 2-08 by mouth ity of 00:00: in the [place] 00 morning Medical and 50 mg Branch at noon and 50 mg in the evening. traMADoL 50 2021-02 Yes 50mg Take 50 mg [facility] mg tablet 2-08 by mouth ity of 00:00: in the [place] 00 morning Medical and 50 mg Branch at noon and 50 mg in the evening. traMADoL 50 2021-02 Yes 50mg Take 50 mg [facility] mg tablet 2-08 by mouth ity of 00:00: in the [place] [address] morning Medical and 50 mg Branch at noon and 50 mg in the evening. traMADoL 50 2021- Yes 50mg Take 50 mg [facility] mg tablet 2-08 by mouth ity of 00:00: in the [place] 00 morning Medical and 50 mg Branch at noon and 50 mg in the evening. traMADoL 50 2021-02 Yes 50mg Take 50 mg [facility] mg tablet 2-08 by mouth ity of 00:00: in the [place] 00 morning Medical and 50 mg Branch at noon and 50 mg in the evening. traMADoL 50 2021-02 Yes 50mg Take 1 [facility] ers mg tablet 2-08 tablet by ity o f 00:00: mouth in [place] 00 the Medical morning Branch and 1 tablet at noon and 1 tablet in the evening. traMADoL 50 2021-02 Yes 50mg Take 1 [facility] ers mg tablet 2-08 tablet by ity o f 00:00: mouth in [place] 00 the Medical morning Branch and 1 tablet at noon and 1 tablet in the evening. traMADoL 50 2021-02 Yes 50mg Take 1 [facility] ers mg tablet 2-08 tablet by ity o f 00:00: mouth in [place] 00 the Medical morning Branch and 1 tablet at noon and 1 tablet in the evening. traMADoL 50 2021-02 No 50mg Take 1 Uni vers mg tablet 2-08 04-25 tablet by ity of 00:00: 00:00 mouth in [place] 00 :00 the Medical morning Branch and 1 tablet at noon and 1 tablet in the evening. mirtazapine 2021-02 Yes [id number] 15mg Take 1 [facility] 15 mg 1-21 tablet by ity of tablet 00:00: mouth at [place] [address] bedtime. Medical Branch mirtazapine 2021-02 Yes [id number] 15mg Take 1 [facility] 15 mg 1-21 tablet by ity of tablet 00:00: mouth at [place] [address] bedtime. Medical Branch mirtazapine 2021-02 Yes [id number] 15mg Take 1 [facility] 15 mg 1-21 tablet by ity of tablet 00:00: mouth at [place] 00 bedtime. Medical Branch mirtazapine 2021-02- No [id number] 15mg Take 1 [facility] 15 mg 1-21 12-21 tablet by ity of tablet 00:00: 00:00 mouth at [place] 00 :00 bedtime. Medical Branch mirtazapine 2021-02- No [id number] 15mg Take 1 [facility] 15 mg 1-21 12-21 tablet by ity of tablet 00:00: 00:00 mouth at [place] 00 :00 bedtime. Medical Branch vortioxetin 2021-02 Yes [id number] 5mg Take 1 Univers e 0-20 tablet by ity of (TRINTELLIX 00:00: mouth in [place] ) 5 mg Tab 00 the Medical morning. Branch vortioxetin 2021-02 Yes [id number] 5mg Take 1 Univers e 0-20 tablet by ity of (TRINTELLIX 00:00: mouth in [place] ) 5 mg Tab 00 the Medical morning. Branch vortioxetin 2021-02 Yes [id number] 5mg Take 1 Univers e 0-20 tablet by ity of (TRINTELLIX 00:00: mouth in [place] ) 5 mg Tab 00 the Medical morning. Branch vortioxetin 2021-02 Yes [id number] 5mg Take 1 Univers e 0-20 tablet by ity of (TRINTELLIX 00:00: mouth in [place] ) 5 mg Tab 00 the Medical morning. Branch vortioxetin 2021-02 Yes [id number] 5mg Take 1 Univers e 0-20 tablet by ity of (TRINTELLIX 00:00: mouth in [place] ) 5 mg Tab 00 the Medical morning. Branch vortioxetin 2021-02 Yes [id number] 5mg Take 1 [facility] e 0-20 tablet by ity of (TRINTELLIX 00:00: mouth in [place] ) 5 mg Tab 00 the Medical morning. Branch vortioxetin 2021-02- No [id number] 5mg Take 1 Univers e 0-20 11-21 tablet by ity of (TRINTELLIX 00:00: 00:00 mouth in [place] ) 5 mg Tab 00 :00 the Medical morning. Branch vortioxetin 2021-02- No [id number] 5mg Take 1 Univers e 0-20 11-21 tablet by ity of (TRINTELLIX 00:00: 00:00 mouth in [place] ) 5 mg Tab 00 :00 the Medical morning. Branch DULoxetine Yes [id number] 20mg Take 1 [facility] 20 mg 9-20 capsule by ity of capsule 00:00: mouth in [place] 00 the Medical morning. Branch DULoxetine Yes [id number] 20mg Take 1 [facility] 20 mg 9-20 capsule by ity of capsule 00:00: mouth in [place] 00 the Medical morning. Branch DULoxetine Yes [id number] 20mg Take 1 [facility] 20 mg 9-20 capsule by ity of capsule 00:00: mouth in [place] 00 the Medical morning. Branch DULoxetine 2-0 Yes [id number] 20mg Take 1 [facility] 20 mg 9-20 capsule by ity of capsule 00:00: mouth in [place] 00 the Medical morning. Branch DULoxetine 2021-0 Yes [id number] 20mg Take 1 [facility] 20 mg 9-20 capsule by ity of capsule 00:00: mouth in [place] 00 the Medical morning. Branch DULoxetine 2021-0 2- No [id number] 20mg Take 1 [facility] 20 mg 9-20 10-20 capsule by ity of capsule 00:00: 00:00 mouth in [place] 00 :00 the Medical morning. Branch DULoxetine 2021-0 2- No [id number] 20mg Take 1 [facility] 20 mg 9-20 10-20 capsule by ity of capsule 00:00: 00:00 mouth in [place] 00 :00 the Medical morning. Branch gabapentin 2-0 Yes [id number] 300mg Take 1 [facility] 300 mg 8-23 capsule by ity of capsule 00:00: mouth at [place] [address] bedtime. Medical Branch gabapentin 2-0 Yes [id number] 300mg Take 1 [facility] 300 mg 8-23 capsule by ity of capsule 00:00: mouth at [place] [address] bedtime. Medical Branch gabapentin 2-0 Yes [id number] 300mg Take 1 [facility] 300 mg 8-23 capsule by ity of capsule 00:00: mouth at [place] [address] bedtime. Medical Branch gabapentin 2-0 2- No [id number] 300mg Take 1 [facility] 300 mg 8-23 09-20 capsule by ity of capsule 00:00: 00:00 mouth at [place] 00 :00 bedtime. Medical Branch gabapentin 2-0 2022- No [id number] 300mg Take 1 [facility] 300 mg 8-23 09-20 capsule by ity of capsule 00:00: 00:00 mouth at [place] 00 :00 bedtime. Medical Branch mirtazapine 2022-0 2022- No 30mg Take 30 mg [facility] 30 mg 09-20 by mouth ity of tablet 00:00: 00:00 in the [place] 00 :00 morning. Medical Branch mirtazapine 2022-0 2022- No 30mg Take 30 mg [facility] 30 mg 09-20 by mouth ity of tablet 00:00: 00:00 in the [place] 00 :00 morning. Medical Branch sertraline 2020-0 [...] 20:45: daily. [facility] sertraline Yes 50mg QD Take 50 mg M ethodi ([facility]) 50 9-[address] [facility] tablet 20:45: daily. [facility] Saline No Notes: [facility] Flush 0.9% 6-09 (Same as: l 18:36: BD [place] 00 Posiflush) Saline No Notes: [facility] Flush 0.9% 6-09 (Same as: l 18:36: BD [place] 00 Posiflush) Saline No Notes: [facility] Flush 0.9% 6-09 (Same as: l 18:36: BD [place] 00 Posiflush) Saline No Notes: [facility] Flush 0.9% 6-09 (Same as: l 18:36: BD [place] 00 Posiflush) Saline No Notes: [facility] Flush 0.9% 6-09 (Same as: l 18:36: BD [place] 00 Posiflush) Saline No Notes: [facility] Flush 0.9% 6-09 (Same as: l 18:36: BD [place] 00 Posiflush) Saline No Notes: [facility] Flush 0.9% 6-09 (Same as: l 18:36: BD [place] 00 Posiflush) Saline No Notes: [facility] Flush 0.9% 6-09 (Same as: l 18:36: BD [place] 00 Posiflush) Saline No Notes: [facility] Flush 0.9% 6-09 (Same as: l 18:36: BD [place] 00 Posiflush) Saline No Notes: [facility] Flush 0.9% 6-09 (Same as: l 18:36: BD [place] 00 Posiflush) Saline No Notes: [facility] Flush 0.9% 6-09 (Same as: l 18:36: BD [place] 00 Posiflush) Saline No Notes: [facility] Flush 0.9% 6-09 (Same as: l 18:36: BD [place] 00 Posiflush) Saline No Notes: [facility] Flush 0.9% 6-09 (Same as: l 18:36: BD [place] 00 Posiflush) Saline No Notes: [facility] Flush 0.9% 6-09 (Same as: l 18:36: BD [place] 00 Posiflush) Saline No Notes: [facility] Flush 0.9% 6-09 (Same as: l 18:36: BD [place] 00 Posiflush) Saline No Notes: [facility]oria Flush 0.9% 6-09 (Same as: l 18:36: BD [place] 00 Posiflush) Saline No Notes: [facility] Flush 0.9% 6-09 (Same as: l 18:36: BD [place] 00 Posiflush) Saline No Notes: [facility] Flush 0.9% 6-09 (Same as: l 18:36: BD [place] 00 Posiflush) Saline No Notes: [facility] Flush 0.9% 6-09 (Same as: l 18:36: BD [place] 00 Posiflush) Saline No Notes: Memoria Flush 0.9% 6-09 (Same as: l 18:36: BD [place] 00 Posiflush) Saline No Notes: [facility]oria Flush 0.9% 6-09 (Same as: l 18:36: BD [place] 00 Posiflush) Saline No Notes: [facility]oria Flush 0.9% 6-09 (Same as: l 18:36: BD [place] 00 Posiflush) Saline No Notes: [facility]oria Flush 0.9% 6-09 (Same as: l 18:36: BD [place] 00 Posiflush) Saline No Notes: [facility] Flush 0.9% 6-09 (Same as: l 18:36: BD [place] 00 Posiflush) Saline No Notes: Memoria Flush 0.9% 6-09 (Same as: l 18:36: BD [place] 00 Posiflush) Saline No Notes: Memoria Flush 0.9% 6-09 (Same as: l 18:36: BD [place] 00 Posiflush) Saline No Notes: Memoria Flush 0.9% 6-09 (Same as: l 18:36: BD [place] 00 Posiflush) Saline No Notes: Memoria Flush 0.9% 6-09 (Same as: l 18:36: BD [place] 00 Posiflush) Saline No Notes: Memoria Flush 0.9% 6-09 (Same as: l 18:36: BD [place] 00 Posiflush) Saline No Notes: Memoria Flush 0.9% 6-09 (Same as: l 18:36: BD [place] 00 Posiflush) Saline No Notes: Memoria Flush 0.9% 6-09 (Same as: l 18:36: BD [place] 00 Posiflush) Saline No Notes: Memoria Flush 0.9% 6-09 (Same as: l 18:36: BD [place] 00 Posiflush) Saline No Notes: Memoria Flush 0.9% 6-09 (Same as: l 18:36: BD [place] 00 Posiflush) Saline No Notes: Memoria Flush 0.9% 6-09 (Same as: l 18:36: BD [place] 00 Posiflush) Saline No Notes: Memoria Flush 0.9% 6-09 (Same as: l 18:36: BD [place] 00 Posiflush) Saline No Notes: Memoria Flush 0.9% 6-09 (Same as: l 18:36: BD [place] 00 Posiflush) Saline No Notes: Memoria Flush 0.9% 6-09 (Same as: l 18:36: BD [place] 00 Posiflush) Saline No Notes: Memoria Flush 0.9% 6-09 (Same as: l 18:36: BD [place] 00 Posiflush) Saline No Notes: Memoria Flush 0.9% 6-09 (Same as: l 18:36: BD [place] 00 Posiflush) Vital Signs Vital Name Observation Time Observation Value Comments Source Systolic blood 2022-07-23 17:03:00 160 mm[Hg] Univer sity [facility] Diastolic blood 2022-07-23 17:03:00 83 [facility]Hg[facility]-23 17:03:00 68 /min [facility] Body temperature 2022-07-23 17:03:00 37.22 Nita Univ ersity of [place] [facility] Respiratory rate 2022-07-23 17:03:00 16 /min [facility] [place] [facility] Body height 2022-07-23 17:03:00 167.6 cm [facility] [place] [facility] Body weight 2022-07-23 17:03:00 90.719 kg [facility] [place] [facility] BMI 2022-07-23 17:03:00 32.28 kg/m2 [facility] [place] [facility] Oxygen saturation in 2022-07-23 17:03:00 99 /min [facility] of Arterial blood by [facility] Pulse oximetry Branch Systolic blood 2022-07-20 09:47:00 129 mm[Hg] Univer sity of pressure [place] [facility] Diastolic blood 2022-07-20 09:47:00 68 mm[Hg] Unive rsity of pressure [place] [facility] Heart rate 2022-07-20 09:47:00 90 /min [facility] [place] [facility] Body temperature 2022-07-20 09:47:00 36.72 Nita [facility] [place] [facility] Respiratory rate 2022-07-20 09:47:00 17 /min [facility] [place] [facility] Oxygen saturation in 2022-07-20 09:47:00 100 /min [facility] Arterial blood by [facility] Pulse oximetry Branch Systolic blood 2022-07-16 14:11:00 145 mm[Hg] Univer sity of pressure [place] [facility] Diastolic blood 2022-07-16 14:11:00 73 mm[Hg] Unive rsity of pressure [place] [facility] Heart rate 2022-07-16 14:11:00 62 /min [facility] [place] [facility] Body temperature 2022-07-16 14:11:00 36.33 Nita [facility] [place] [facility] Respiratory rate 2022-07-16 14:11:00 20 /min [facility] [place] [facility] Oxygen saturation in 2022-07-16 14:11:00 100 /min [facility] Arterial blood by [facility] Pulse oximetry Branch WEIGHT 2022-07-12 06:00:00 86 kg WEIGHT 2022-07-12 06:00:00 86 kg Systolic blood 2022-07-11 15:10:00 117 mm[Hg] Univer sity of pressure [place] [facility] Diastolic blood 2022-07-11 15:10:00 68 mm[Hg] Unive rsity of pressure [place] [facility] Heart rate 2022-07-11 15:10:00 74 /min [facility] [place] [facility] Body temperature 2022-07-11 15:10:00 36.94 Nita [facility] [place] [facility] Respiratory rate 2022-07-11 15:10:00 18 /min [facility] [place] [facility] Body weight 2022-07-11 15:10:00 90.719 kg [facility] [place] [facility] BMI 2022-07-11 15:10:00 32.28 kg/m2 [facility] [place] [facility] Oxygen saturation in 2022-07-11 15:10:00 98 /min [facility] Arterial blood by [facility] Pulse oximetry Branch Systolic blood 2022-07-11 11:20:00 133 mm[Hg] Univer sity of pressure [place] [facility] Diastolic blood 2022-07-11 11:20:00 69 mm[Hg] Unive rsity of pressure [place] [facility] Heart rate 2022-07-11 11:20:00 78 /min [facility] [place] [facility] Respiratory rate 2022-07-11 11:20:00 18 /min [facility] [place] [facility] Oxygen saturation in 2022-07-11 11:20:00 99 /min [facility] Arterial blood by [facility] Pulse oximetry Branch Body temperature 2022-07-11 09:24:00 36.83 Nita [facility] [place] [facility] Body weight 2022-07-11 09:24:00 90.719 kg [facility] [place] [facility] BMI 2022-07-11 09:24:00 32.28 kg/m2 [facility] [place] [facility] Systolic blood 2022-07-08 18:24:00 130 mm[Hg] Univer sity of pressure [place] [facility] Diastolic blood 2022-07-08 18:24:00 57 mm[Hg] Unive rsity of pressure [place] [facility] Heart rate 2022-07-08 18:24:00 87 /min [facility] [place] [facility] Body temperature 2022-07-08 18:24:00 36.72 Nita [facility] [place] [facility] Respiratory rate 2022-07-08 18:24:00 18 /min [facility] [place] [facility] Body weight 2022-07-08 18:24:00 90.719 kg [facility] [place] [facility] BMI 2022-07-08 18:24:00 32.28 kg/m2 [facility] [place] [facility] Oxygen saturation in 2022-07-08 18:24:00 97 /min [facility] Arterial blood by [facility] Pulse oximetry Branch Systolic blood 2022-07-05 14:00:00 155 mm[Hg] Univer sity of pressure [place] [facility] Diastolic blood 2022-07-05 14:00:00 80 mm[Hg] Unive rsity of pressure [place] [facility] Heart rate 2022-07-05 14:00:00 76 /min Universi ty of [facility] Body temperature 2022-07-05 14:00:00 37.56 Nita Univ ersity of [facility] Respiratory rate 2022-07-05 14:00:00 16 /min Univ ersity of [facility] Oxygen saturation in 2022-07-05 14:00:00 98 /min [facility] Arterial blood by [facility] Pulse oximetry Branch Body weight 2022-07-05 10:49:00 90.719 kg [facility] [place] [facility] BMI 2022-07-05 10:49:00 32.28 kg/m2 Universi ty of [facility] HEIGHT 2022-06-21 11:16:00 167.6 cm WEIGHT 2022-06-21 11:16:00 87.181 kg HEIGHT 2022-06-21 11:16:00 167.6 cm WEIGHT 2022-06-21 11:16:00 87.181 kg Systolic blood 2022-06-16 16:05:00 112 mm[Hg] Univer sity of pressure [facility] Diastolic blood 2022-06-16 16:05:00 72 mm[Hg] Unive rsity of pressure [place] [facility] Heart rate 2022-06-16 16:05:00 90 /min [facility] [place] [facility] Body temperature 2022-06-16 16:05:00 36.72 Nita [facility] [place] [facility] Respiratory rate 2022-06-16 16:05:00 16 /min Univ ersity of [facility] Body height 2022-06-16 16:05:00 167.6 cm [facility] [place] [facility] Body weight 2022-06-16 16:05:00 91.173 kg [facility] [place] [facility] BMI 2022-06-16 16:05:00 32.44 kg/m2 [facility] [place] [facility] Oxygen saturation in 2022-06-16 16:05:00 100 /min [facility] Arterial blood by [facility] Pulse oximetry Branch Systolic blood 2022-06-07 18:25:00 140 mm[Hg] Univer sity of pressure [place] [facility] Diastolic blood 2022-06-07 18:25:00 74 mm[Hg] Unive rsity of pressure [place] [facility] Heart rate 2022-06-07 18:25:00 70 /min [facility] [place] [facility] Body temperature 2022-06-07 18:25:00 36.44 Nita [facility] [place] [facility] Respiratory rate 2022-06-07 18:25:00 20 /min [facility] [place] [facility] Oxygen saturation in 2022-06-07 18:25:00 100 /min [facility] Arterial blood by [facility] Pulse oximetry Branch Body weight 2022-05-27 08:00:00 86.456 kg [facility] [place] [facility] BMI 2022-05-27 08:00:00 30.76 kg/m2 [facility] [place] [facility] Body height 2022-05-27 02:20:00 167.6 cm [facility] [place] [facility] Systolic blood 2022-06-03 10:48:00 136 mm[Hg] Univer sity of pressure [place] [facility] Diastolic blood 2022-06-03 10:48:00 67 mm[Hg] Unive rsity of pressure [place] [facility] Heart rate 2022-06-03 10:48:00 80 /min [facility] [place] [facility] Body temperature 2022-06-03 10:48:00 36.28 Nita [facility] [place] [facility] Respiratory rate 2022-06-03 10:48:00 18 /min Univ [facility] [place] [facility] Oxygen saturation in 2022-06-03 10:48:00 97 /min [facility] Arterial blood by [facility] Pulse oximetry Branch Body weight 2022-05-27 08:00:00 86.456 kg [facility] [place] [facility] BMI 2022-05-27 08:00:00 30.76 kg/m2 [facility] [place] [facility] Body height 2022-05-27 02:20:00 167.6 cm [facility] [place] [facility] Systolic blood 2022-05-31 01:00:00 116 mm[Hg] Univer sity of pressure [place] [facility] Diastolic blood 2022-05-31 01:00:00 68 mm[Hg] Unive rsity of pressure [place] [facility] Heart rate 2022-05-31 01:00:00 79 /min [facility] [place] [facility] Body temperature 2022-05-31 01:00:00 37.78 Nita [facility] [place] [facility] Respiratory rate 2022-05-31 01:00:00 14 /min [facility] [place] [facility] Oxygen saturation in 2022-05-31 01:00:00 96 /min [facility] by [place] [facility] Pulse oximetry Branch Body weight 2022-05-27 08:00:00 86.456 kg [facility] [place] [facility] BMI 2022-05-27 08:00:00 30.76 kg/m2 [facility] [place] [facility] Body height 2022-05-27 02:20:00 167.6 cm [facility] [place] [facility] Systolic blood 2022-05-29 15:15:00 138 mm[Hg] Univer sity of pressure [place] [facility] Diastolic blood 2022-05-29 15:15:00 81 mm[Hg] Unive rsity of pressure [place] [facility] Heart rate 2022-05-29 15:15:00 62 /min [facility] [place] [facility] Body temperature 2022-05-29 15:15:00 36.39 Nita [facility] [place] [facility] Respiratory rate 2022-05-29 15:15:00 18 /min [facility] [place] [facility] Oxygen saturation in 2022-05-29 15:15:00 100 /min [facility] blood by [place] [facility] Pulse oximetry Branch Body weight 2022-05-27 08:00:00 86.456 kg [facility] [place] [facility] BMI 2022-05-27 08:00:00 30.76 kg/m2 [facility] [place] [facility] Body height 2022-05-27 02:20:00 167.6 cm [facility] [place] [facility] Systolic blood 2022-05-23 21:38:00 137 mm[Hg] Univer sity of pressure [place] [facility] Diastolic blood 2022-05-23 21:38:00 89 mm[Hg] Unive rsity of pressure [place] [facility] Heart rate 2022-05-23 21:38:00 100 /min [facility] [place] [facility] Body temperature 2022-05-23 21:38:00 36.67 Nita [facility] [place] [facility] Respiratory rate 2022-05-23 21:38:00 20 /min [facility] [place] [facility] Body weight 2022-05-23 21:38:00 81.647 kg [facility] [place] [facility] BMI 2022-05-23 21:38:00 29.05 kg/m2 [facility] [place] [facility] Oxygen saturation in 2022-05-23 21:38:00 100 /min [facility] Arterial blood by [facility] Pulse oximetry Branch Systolic blood 2022-05-23 10:00:00 144 mm[Hg] Univer sity of pressure [place] [facility] Diastolic blood 2022-05-23 10:00:00 79 mm[Hg] Unive rsity of pressure [place] [facility] Heart rate 2022-05-23 10:00:00 77 /min [facility] [place] [facility] Respiratory rate 2022-05-23 10:00:00 14 /min [facility] [place] [facility] Oxygen saturation in 2022-05-23 10:00:00 96 /min [facility] by [place] [facility] Pulse oximetry Branch Body temperature 2022-05-23 08:49:00 36.72 Nita [facility] [place] [facility] Body height 2022-05-23 08:49:00 167.6 cm [facility] [place] [facility] Body weight 2022-05-23 08:49:00 81.647 kg [facility] [place] [facility] BMI 2022-05-23 08:49:00 29.05 kg/m2 [facility] [place] [facility] Systolic blood 2022-05-19 14:32:00 153 mm[Hg] Univer sity of pressure [place] [facility] Diastolic blood 2022-05-19 14:32:00 82 mm[Hg] Unive rsity of pressure [place] [facility] Heart rate 2022-05-19 14:31:00 86 /min [facility] [place] [facility] Body temperature 2022-05-19 14:31:00 36.11 Nita [facility] [place] [facility] Body height 2022-05-19 14:31:00 167.6 cm [facility] [place] [facility] Body weight 2022-05-19 14:31:00 87.544 kg [facility] [place] [facility] BMI 2022-05-19 14:31:00 31.15 kg/m2 [facility] [place] [facility] Oxygen saturation in 2022-05-19 14:31:00 97 /min [facility] blood by [place] [facility] Pulse oximetry Branch Systolic blood 2022-05-03 14:51:00 136 mm[Hg] Univer sity of pressure [place] [facility] Diastolic blood 2022-05-03 14:51:00 80 mm[Hg] Unive rsity of pressure [place] [facility] Heart rate 2022-05-03 14:51:00 68 /min [facility] [place] [facility] Body height 2022-05-03 14:51:00 167.6 cm [facility] [place] [facility] Body weight 2022-05-03 14:51:00 84.369 kg [facility] [place] [facility] Branch BMI 2022-05-03 14:51:00 30.02 kg/m2 [facility] Systolic blood 2022-04-13 15:41:00 128 mm[Hg] [facility] Diastolic blood 2022-04-13 15:41:00 88 mm[Hg] [facility] Heart rate 2022-04-13 15:41:00 88 /min [facility] Respiratory rate 2022-04-13 15:41:00 18 /min [facility] Body height 2022-04-13 15:41:00 167.6 cm [facility] Body weight 2022-04-13 15:41:00 86.047 kg [facility] BMI 2022-04-13 15:41:00 30.62 kg/m2 [facility] Oxygen saturation in 2022-04-13 15:41:00 96 /min [facility] Arterial blood by [employer] [facility] Pulse oximetry Branch Systolic blood 2022-04-07 16:41:00 162 mm[Hg] [facility] Diastolic blood 2022-04-07 16:41:00 89 mm[Hg] [facility] Heart rate 2022-04-07 16:41:00 81 /min [facility] Body weight 2022-04-07 16:39:00 86.183 kg [facility] BMI 2022-04-07 16:39:00 30.67 kg/m2 [facility] Systolic blood 2022-02-02 15:24:00 133 mm[Hg] [facility] Diastolic blood 2022-02-02 15:24:00 82 mm[Hg] [facility] Heart rate 2022-02-02 15:24:00 82 /min [facility] Body height 2022-02-02 15:24:00 167.6 cm [facility] Body weight 2022-02-02 15:24:00 83.008 kg [facility] BMI 2022-02-02 15:24:00 29.54 kg/m2 [facility] Systolic blood 2022-01-03 15:07:00 129 mm[Hg] [facility] Diastolic blood 2022-01-03 15:07:00 82 mm[Hg] [facility] Heart rate 2022-01-03 15:07:00 76 /min [facility] Body temperature 2022-01-03 15:07:00 36.83 Nita [facility] Body height 2022-01-03 15:07:00 167.6 cm [facility] Body weight 2022-01-03 15:07:00 83.462 kg [facility] BMI 2022-01-03 15:07:00 29.70 kg/m2 [facility] Systolic blood 2021-12-08 15:22:00 144 mm[Hg] [facility] Diastolic blood 2021-12-08 15:22:00 84 mm[Hg] [facility] Heart rate 2021-12-08 15:18:00 70 /min [facility] Body height 2021-12-08 15:18:00 167.6 cm [facility] Body weight 2021-12-08 15:18:00 83.326 kg [facility] BMI 2021-12-08 15:18:00 29.65 kg/m2 [facility] Oxygen saturation in 2021-12-08 15:18:00 100 /min [facility] Arterial blood by [facility] Pulse oximetry Branch Systolic blood 2021-12-02 16:05:00 130 mm[Hg] [facility] Diastolic blood 2021-12-02 16:05:00 78 mm[Hg] [facility] Heart rate 2021-12-02 16:05:00 61 /min [facility] [place] Body temperature 2021-12-02 16:05:00 37.22 Nita [facility] Body height 2021-12-02 16:05:00 167.6 cm [facility] Body weight 2021-12-02 16:05:00 84.369 kg [facility] BMI 2021-12-02 16:05:00 30.02 kg/m2 [facility] Systolic blood 2021-11-02 14:34:00 133 mm[Hg] [facility] Diastolic blood 2021-11-02 14:34:00 79 mm[Hg] [facility] Heart rate 2021-11-02 14:34:00 80 /min [facility] Body height 2021-11-02 14:34:00 167.6 cm [facility] Body weight 2021-11-02 14:34:00 84.823 kg [facility] BMI 2021-11-02 14:34:00 30.18 kg/m2 [facility] Systolic blood 2021-10-05 19:18:00 152 mm[Hg] [facility] Diastolic blood 2021-10-05 19:18:00 87 mm[Hg] [facility] Heart rate 2021-10-05 19:18:00 83 /min [facility] Body temperature 2021-10-05 19:18:00 37.33 Nita [facility] Body height 2021-10-05 19:18:00 167.6 cm [facility] Body weight 2021-10-05 19:18:00 86.637 kg [facility] BMI 2021-10-05 19:18:00 30.83 kg/m2 [facility] Oxygen saturation in 2021-10-05 19:18:00 99 /min [facility] Arterial blood by [facility] Pulse oximetry Branch Heart rate 2022-06-23 15:28:08 91 /min [facility] Respiratory rate 2022-06-23 15:28:08 18 /min [facility] Oxygen saturation in 2022-06-23 15:28:08 100 /min [facility] Pulse [facility] Body temperature 2022-06-23 15:28:04 36.89 Nita [facility] Systolic blood 2022-06-23 15:27:00 144 mm[Hg] [facility] Diastolic blood 2022-06-23 15:27:00 79 mm[Hg] [facility] Body height 2022-06-21 11:16:00 167.6 cm [facility] Body weight 2022-06-21 11:16:00 87.181 kg [facility] BMI 2022-06-21 11:16:00 31.02 kg/m2 [facility] Initial DRG Weight: 2020-02-15 05:04:52 [...] Temperature 2020-02-15 05:04:52 36.6\\S\\97.9 Weight 2020-02-15 05:04:52 94257\\S\\2627.91 Weight Measurement 2020-02-15 05:04:52 Built in Bedscale [...] Temperature 2020-02-10 08:28:02 36.6\\S\\97.9 Weight 2020-02-10 08:28:02 38336\\S\\2627.91 Weight Measurement 2020-02-10 08:28:02 Built in Bedscale [...] Temperature 2020-02-06 14:55:36 36.6\\S\\97.9 Weight 2020-02-06 14:55:36 88018\\S\\2627.91 Weight Measurement 2020-02-06 14:55:36 Built in Bedscale [...] Temperature 2020-02-06 12:25:52 36.7\\S\\98.1 Weight 2020-02-06 12:25:52 07432\\S\\2627.91 Weight Measurement 2020-02-06 12:25:52 Built in Bedscale [...] Temperature 2020-02-04 14:40:56 36.3\\S\\97.3 Weight 2020-02-04 14:40:56 93969\\S\\2627.91 Weight Measurement 2020-02-04 14:40:56 Built in Bedscale [...] Temperature 2020-02-04 12:53:01 36.3\\S\\97.3 Weight 2020-02-04 12:53:01 61291\\S\\2627.91 Weight Measurement 2020-02-04 12:53:01 Built in Bedscale [...] Temperature 2020-02-04 10:07:56 36.7\\S\\98.1 Weight 2020-02-04 10:07:56 27022\\S\\2627.91 Weight Measurement 2020-02-04 10:07:56 Built in Bedscale [...] Temperature 2020-02-04 06:31:28 36.7\\S\\98.1 Weight 2020-02-04 06:31:28 96155\\S\\2627.91 Weight Measurement 2020-02-04 06:31:28 Built in Bedscale [...] Temperature 2020-02-03 15:40:21 37.1\\S\\98.8 Weight 2020-02-03 15:40:21 76410\\S\\2627.91 Weight Measurement 2020-02-03 15:40:21 Built in Bedscale [...] Temperature 2020-02-03 13:59:33 37.1\\S\\98.8 Weight 2020-02-03 13:59:33 49165\\S\\2627.91 Weight Measurement 2020-02-03 13:59:33 Built in Bedscale [...] Temperature 2020-02-03 13:57:29 37.1\\S\\98.8 Weight 2020-02-03 13:57:29 77362\\S\\2627.91 Weight Measurement 2020-02-03 13:57:29 Built in Bedscale Method WEIGHT 2020-02-03 05:44:00 74.5 kg HEIGHT 2020-02-03 05:00:00 167.64 cm Respitory Rate 2014-07-22 20:45:00 [facility] [place] Heart Rate 2014-07-22 20:45:00 [facility] Systolic (mm Hg) 2014-07-22 20:45:00 Jack rial [place] Diastolic (mm Hg) 2014-07-22 20:45:00 Mem [facility] Height 2014-07-22 17:53:00 167.64 cm [facility] Weight 2014-07-22 17:53:00 [facility] [place] BMI Calculated 2014-07-22 17:53:00 [facility] Respitory Rate 2014-07-22 17:53:00 [facility] Temperature Oral (F) 2014-07-22 17:53:00 97.9 F [facility] [place] Heart Rate 2014-07-22 17:53:00 [facility] Systolic (mm Hg) 2014-07-22 17:53:00 Jack Walls Diastolic (mm Hg) 2014-07-22 17:53:00 Mem elizabet Walls Procedures Procedure Date / Time Performing Clinician Source Performed ASSIGNMENT OF BENEFITS 2022-07-23 17:30:47 Doctor Unassagnes [facility] [place] CONSENT/REFUSAL FOR 2022-07-23 16:45:23 Doctor Unasari [facility] DIAGNOSIS AND TREATMENT [facility] Branch COMP. METABOLIC PANEL 2022-07-11 10:41:00 Ángel Murray [facility] ([id number]) Medical Branch CBC WITH DIFF 2022-07-11 10:41:00 Ángel Murray [facility] POCT GLUCOSE (AUTOMATED) 2022-07-11 09:26:00 Doctor Trotter, [facility] CONSENT/REFUSAL FOR 2022-07-11 04:57:15 Doctor Sergo [facility] DIAGNOSIS AND TREATMENT [facility] CONSENT/REFUSAL FOR 2022-07-08 18:20:06 Doctor Sergo [facility] DIAGNOSIS AND TREATMENT [facility] URINALYSIS 2022-07-05 13:22:00 Hilda Miller [facility] XR TIBIA FIBULA 2 VW 2022-07-05 13:16:57 Hilda Miller [facility] Branch COMP. METABOLIC PANEL 2022-07-05 12:59:00 Hilda Miller [facility] ([id number]) [facility] US LOWER EXTREMITY VEIN 2022-07-05 12:47:00 Hilda Miller [facility] WITH COMPRESSION RIGHT Medical B ranch (ONLY FOR RULE OUT DVT) TROPONIN I 2022-07-05 11:49:00 Hilda Miller [facility] CBC WITH DIFF 2022-07-05 11:49:00 Hilda Miller [facility] N-TERMINAL PRO-BNP 2022-07-05 11:49:00 Hilda Miller [facility] US RENAL COMPLETE 2022-06-23 16:47:00 Laureen Moore [facility] CBC W/PLT COUNT & AUTO 2022-06-23 05:27:00 Kendra [facility] DIFFERENTIAL Center CBC W/PLT COUNT & AUTO 2022-06-23 05:27:00 Kendra [facility] DIFFERENTIAL Center US ABDOMEN LIMITED 2022-06-22 16:17:00 [facility] BASIC METABOLIC PANEL 2022-06-22 03:48:00 Fabienne [facility] MAGNESIUM 2022-06-22 03:48:00 Fabienne [facility] HEPATIC FUNCTION PANEL 2022-06-22 03:48:00 [facility] CBC W/PLT COUNT & AUTO 2022-06-22 03:48:00 Fabienne [facility] PROTEIN ELECTROPHORESIS, 2022-06-22 03:48:00 Fabienne [facility] IRON, TIBC, % SAT. 2022-06-22 03:48:[address] [facility] (WITHOUT FERRITIN) [place] VITAMIN B12 2022-06-22 03:48:00 Fabienne [facility] FERRITIN 2022-06-22 03:48:00 Fabienne [facility] HEPARIN ANTIBODY 2022-06-22 03:48:00 Fabienne [facility] LACTATE DEHYDROGENASE 2022-06-22 03:48:00 NiniVA [facility] HAPTOGLOBIN 2022-06-22 03:48:00 [facility] [place] RETICULOCYTE COUNT 2022-06-22 03:48:00 Ward[facility]ri [facility] SERUM IMMUNOTYPING 2022-06-22 03:48:00 Fabienne [facility] SEROTONIN RELEASE ASSAY 2022-06-22 03:48:00 Fabienne [facility] CBC W/PLT COUNT & AUTO 2022-06-22 03:48:00 Olga Abraham [facility] DIFFERENTIAL Center URINE PROTEIN 2022-06-21 16:38:00 FabienneOlga [facility] ELECTROPHORESIS, RANDOM Center SARS-COV2/RT-PCR ([facility] & 2022-06-21 11:14:00 Olga Abraham [facility] REF LABS) Center COMPREHENSIVE METABOLIC 2022-06-21 11:12:00 [facility] PANEL Center PROTHROMBIN TIME/INR 2022-06-21 11:12:00 [facility] W/[facility]T COUNT & AUTO 2022-06-21 11:12:00 [facility] CBC W/PLT COUNT & AUTO 2022-06-21 11:12:00 [facility] INSURANCE CORRESPONDENCE 2022-06-21 05:01:00 Doctor Unassigned, [facility] PHOSPHORUS 2022-06-07 09:16:00 [facility] MAGNESIUM 2022-06-07 09:16:00 [facility] BASIC METABOLIC PANEL 2022-06-07 09:16:00 [facility] (NA, K, CL, CO2, GLUCOSE, Faustino Medica l Branch BUN, CREATININE, CA) PHOSPHORUS 2022-06-05 11:13:00 [facility] Jose Antonio MAGNESIUM 2022-06-05 11:13:00 [facility] Jose Antonio BASIC METABOLIC PANEL 2022-06-05 11:13:00 [facility] (NA, K, CL, CO2, GLUCOSE, Rod, Juanpablo Medica l Branch BUN, CREATININE, CA) Jose Atnonio CBC WITH DIFF 2022-06-05 11:13:00 [facility] Jose Antonio PHOSPHORUS 2022-06-05 11:13:00 [facility] Rod, [facility] Jose Antonio MAGNESIUM 2022-06-05 11:13:00 [facility] Jose Antonio BASIC METABOLIC PANEL 2022-06-05 11:13:00 [facility] (NA, K, CL, CO2, GLUCOSE, Rod, [facility] Medica Branch BUN, CREATININE, CA) Jose Antonio CBC WITH DIFF 2022-06-05 11:13:00 [facility], [facility] Jose Antonio CT THORAX W CONTRAST 2022-06-05 01:36:13 Candice Shimon [facility] CT THORAX W CONTRAST 2022-06-05 01:36:13 [facility] ACTIVATED PARTIAL 2022-06-04 18:00:00 Dannie [facility] ACTIVATED PARTIAL 2022-06-04 18:00:00 Dannie [facility] ACTIVATED PARTIAL 2022-06-04 14:21:00 [facility] ACTIVATED PARTIAL 2022-06-04 14:21:00 [facility] XR KUB 2022-06-04 09:32:00 [facility]-04 09:32:00 [facility]UB 2022-06-04 06:45:00 [facility]UB 2022-06-04 06:45:00 [facility] HIT - AB 2022-06-04 06:14:00 Armando Pandey [facility] EXTRA SST HOLD FOR ARUP 2022-06-04 06:14:00 Armando Pandey [facility] HIT - AB 2022-06-04 06:14:00 [facility] EXTRA S[facility] FOR ARUP 2022-06-04 06:14:00 Armando Pandey [facility] XR CHEST 1 VW 2022-06-04 05:23:00 Armando Pandey [facility] XR CHEST 1 VW 2022-06-04 05:23:00 Armando Pandey [facility] TROPONIN I 2022-06-04 04:51:00 Armando Pandey [facility] HEPATIC FUNCTION PANEL 2022-06-04 04:51:00 Armando Pandey [facility] ([id number]) (ALB,T.PRO,BILI Medical Branch T,BU/BC,ALT,AST,ALK PHOS) BASIC METABOLIC PANEL 2022-06-04 04:51:00 Armando Pandey [facility] (NA, K, CL, CO2, GLUCOSE, Medica l Branch BUN, CREATININE, CA) CBC WITH DIFF 2022-06-04 04:51:00 Armando Pandey [facility] ACTIVATED PARTIAL 2022-06-04 04:51:00 Andreea [facility] TROPONIN I 2022-06-04 04:51:00 Armando Pandey [facility] HEPATIC FUNCTION PANEL 2022-06-04 04:51:00 Armando Pandey [facility] ([id number]) (ALB,T.PRO,BILI Medical Branch T,BU/BC,ALT,AST,ALK PHOS) BASIC METABOLIC PANEL 2022-06-04 04:51:00 Armando Pandey [facility] (NA, K, CL, CO2, GLUCOSE, Medica l Branch BUN, CREATININE, CA) CBC WITH DIFF 2022-06-04 04:51:00 Dannie Armando [facility] ACTIVATED PARTIAL 2022-06-04 04:51:00 Andreea [facility] HB ECG ROUTINE & RHYTHM 2022-06-04 04:43:15 Dannie Armando [facility] HB ECG ROUTINE & RHYTHM 2022-06-04 04:43:15 Dannie [facility] ACTIVATED PARTIAL 2022-06-03 20:52:00 Ryley Polo [facility] ACTIVATED PARTIAL 2022-06-03 20:52:00 Ryley Polo [facility] FL TIME OR 2022-06-03 17:21:00 [facility] Rod [facility] Jose Antonio FL TIME OR 2022-06-03 17:21:00 Alo [facility] (NON-REPORTABLE) Rod [facility] [place] ABG+COOX+NA+K+GLU+CA2+ 2022-06-03 16:52:00 Allan Lynch [facility] ABG+COOX+NA+K+GLU+CA2+ 2022-06-03 16:52:00 Allan Lynch [facility] SURGICAL PATHOLOGY EXAM 2022-06-03 15:42:00 Lawrence Peterson [facility] ABG+COOX+NA+K+GLU+CA2+ 2022-06-03 15:36:00 Allan Lynch [facility] ABG+COOX+NA+K+GLU+CA2+ 2022-06-03 15:36:00 Allan Lynch [facility] HB ABO GROUPING 2022-06-03 13:05:00 Vishnu Zapien [facility] HB ABO GROUPING 2022-06-03 13:05:00 [facility] INFERIOR VENA CAVA FILTER 2022-06-03 12:00:00 [facility] THROMBECTOMY 2022-06-03 12:00:00 Lawrence Peterson [facility] ANGIOPLASTY 2022-06-03 12:00:00 Lawrence Peterson [facility] VASCULAR STENTING 2022-06-03 12:00:00 Lawrence Peterson [facility] INFERIOR VENA CAVA FILTER 2022-06-03 12:00:00 Lawrence Peterson [facility] VENOUS THROMBECTOMY 2022-06-03 12:00:00 Lawrence Peterson [facility] ANGIOPLASTY 2022-06-03 12:00:00 Lawrence Peterson [facility] VASCULAR STENTING 2022-06-03 12:00:00 Lawrence Peterson [facility] PHOSPHORUS 2022-06-03 10:34:00 [facility] Jose Antonio MAGNESIUM 2022-06-03 10:34:00 [facility] [place] BASIC METABOLIC PANEL 2022-06-03 10:34:00 [facility] (NA, K, CL, CO2, GLUCOSE, Rod, Juanpablo Medica l Branch BUN, CREATININE, CA) Jose Antonio CBC WITH DIFF 2022-06-03 10:34:00 [facility] Jose Antonio ACTIVATED PARTIAL 2022-06-03 10:34:00 Joseph Doran [facility] PHOSPHORUS 2022-06-03 10:34:00 [facility] [place] MAGNESIUM 2022-06-03 10:34:00 [facility] Jose Antonio BASIC METABOLIC PANEL 2022-06-03 10:34:00 [facility] (NA, K, CL, CO2, GLUCOSE, Rod, Juanpablo Medica l Branch BUN, CREATININE, CA) Jose Antonio CBC WITH DIFF 2022-06-03 10:34:00 [facility] Jose Antonio ACTIVATED PARTIAL 2022-06-03 10:34:00 Joseph Doran [facility] ACTIVATED PARTIAL 2022-06-02 22:26:00 Ryley Polo [facility] ACTIVATED PARTIAL 2022-06-02 22:26:00 Ryley Polo [facility] ACTIVATED PARTIAL 2022-06-02 15:46:00 [place], [facility] ACTIVATED PARTIAL 2022-06-02 15:46:00 Andreea [facility] PHOSPHORUS 2022-06-02 10:27:00 [facility] [place] MAGNESIUM 2022-06-02 10:27:00 [facility] [place] BASIC METABOLIC PANEL 2022-06-02 10:27:00 Prajapati [facility] (NA, K, CL, CO2, GLUCOSE, Rod, Juanpablo Medica l Branch BUN, CREATININE, CA) Jose Antonio CBC WITH DIFF 2022-06-02 10:27:00 [facility] [place] PHOSPHORUS 2022-06-02 10:27:00 Prajapati [facility] Jose Antonio MAGNESIUM 2022-06-02 10:27:00 [facility] [place] BASIC METABOLIC PANEL 2022-06-02 10:27:00 Prajapati [facility] (NA, K, CL, CO2, GLUCOSE, Rod, [facility] BUN, CREATININE, CA) Jose Antonio CBC WITH DIFF 2022-06-02 10:27:00 [facility] Antonio PHOSPHORUS 2022-06-01 10:05:00 Prajapati [facility] Jose Antonio MAGNESIUM 2022-06-01 10:05:00 Prajapati [facility] Jose Antonio BASIC METABOLIC PANEL 2022-06-01 10:05:00 Prajapati [facility] (NA, K, CL, CO2, GLUCOSE, Rod, [facility] BUN, CREATININE, CA) Jose Antonio CBC WITH DIFF 2022-06-01 10:05:00 [facility] [place] PHOSPHORUS 2022-06-01 10:05:00 [facility] [place] MAGNESIUM 2022-06-01 10:05:00 [facility] [place] BASIC METABOLIC PANEL 2022-06-01 10:05:00 [facility] (NA, K, CL, CO2, GLUCOSE, Rod, Juanpablo [facility] BUN, CREATININE, CA) Jose Antonio CBC WITH DIFF 2022-06-01 10:05:00 [facility] [place] PHOSPHORUS 2022-05-31 11:01:00 [facility] [place] MAGNESIUM 2022-05-31 11:01:00 [facility] Jose Antonio BASIC METABOLIC PANEL 2022-05-31 11:01:00 [facility] (NA, K, CL, CO2, GLUCOSE, Rod, Juanpablo Medica [facility] BUN, CREATININE, CA) Jose Antonio CBC WITH DIFF 2022-05-31 11:01:00 [facility] Jose Antonio PROTHROMBIN TIME / INR 2022-05-31 11:01:00 Juanpablo Salmon [facility] ACTIVATED PARTIAL 2022-05-31 11:01:00 Juanpablo Salmon [facility] THRMPLAS NGA [facility] FIBRINOGEN 2022-05-31 11:01:00 Ryley Polo [facility] [place] PHOSPHORUS 2022-05-31 11:01:00 [facility] Jose Antonio MAGNESIUM 2022-05-31 11:01:00 [facility] Jose Antonio BASIC METABOLIC PANEL 2022-05-31 11:01:00 [facility] (NA, K, CL, CO2, GLUCOSE, Rod, Juanpablo [facility]ica l [facility] BUN, CREATININE, CA) Jose Antonio CBC WITH DIFF 2022-05-31 11:01:00 [facility] Jose Antonio PROTHROMBIN TIME / INR 2022-05-31 11:01:00 Juanpablo Salmon [facility] ACTIVATED PARTIAL 2022-05-31 11:01:00 Juanpablo Salmon [facility] FIBRINOGEN 2022-05-31 11:01:00 [facility] PHOSPH[facility]US 2022-05-31 11:01:00 [facility] Jose Antonio MAGNESIUM 2022-05-31 11:01:00 [facility] Jose Antonio BASIC METABOLIC PANEL 2022-05-31 11:01:00 [facility] (NA, K, CL, CO2, GLUCOSE, Rod, Juanpablo Medica l Branch BUN, CREATININE, CA) Jose Antonio CBC WITH DIFF 2022-05-31 11:01:00 [facility] Jose Antonio PROTHROMBIN TIME / INR 2022-05-31 11:01:00 Juanpablo Salmon [facility] ACTIVATED PARTIAL 2022-05-31 11:01:00 Juanpablo Salmon [facility] FIBRINOGEN 2022-05-31 11:01:00 Ryley Polo [facility] FL TIME OR 2022-05-31 04:56:00 Andreea, [facility] (NON-REPORTABLE) Medical Branch FL TIME OR 2022-05-31 04:56:00 Andreea, [facility] (NON-REPORTABLE) Medical Branch FL TIME OR 2022-05-31 04:56:00 Andreea, [facility] (NON-REPORTABLE) Medical Branch FIBRINOGEN 2022-05-31 01:26:00 [place]ukag[place], [facility] FIBRINOGEN 2022-05-31 01:26:00 Tssheila [facility] FIBRINOGEN 2022-05-31 01:26:00 [facility] VENOGRAM 2022-05-31 01:17:00 [facility] VENOGRAM 2022-05-31 01:17:00 [facility] 2022-05-30 21:47:00 Tssheila [facility] FIBRINOGEN 2022-05-30 21:47:00 Tssheila [facility] FIBRINOGEN 2022-05-30 21:47:00 [facility] FIBRINOGEN 2022-05-30 18:14:00 [facility] FIBRINOGEN 2022-05-30 18:14:00 [facility] FIBRINOGEN 2022-05-30 18:14:00 Tsanagovitaliy [facility] FIBRINOGEN 2022-05-30 18:14:00 Tsanagovitaliy [facility] FIBRINOGEN 2022-05-30 15:21:00 Tssheila [facility] FIBRINOGEN 2022-05-30 15:21:00 Tsanagovitaliy [facility] FIBRINOGEN 2022-05-30 15:21:00 Tssheila [facility] FIBRINOGEN 2022-05-30 15:21:00 Tsanagovitaliy Community [facility] 2022-05-30 13:12:00 [facility] F[facility] 2022-05-30 13:12:00 [facility] FIBRINOGEN 2022-05-30 13:12:00 [facility] FIBRINOGEN 2022-05-30 13:12:00 [facility] FIBRINOGEN 2022-05-30 11:13:00 [facility] FIBRINOGEN 2022-05-30 11:13:00 [facility] FIBRINOGEN 2022-05-30 11:13:00 [facility] FIBRINOGEN 2022-05-30 11:13:00 [facility] PHOSPHORUS 2022-05-30 09:27:00 [facility] MAGNESIUM 2022-05-30 09:27:00 [facility] BASIC METABOLIC PANEL 2022-05-30 09:27:00 [facility] (NA, K, CL, CO2, GLUCOSE, Medica l Branch BUN, CREATININE, CA) CBC WITH DIFF 2022-05-30 09:27:00 [facility] ACTIVATED PARTIAL 2022-05-30 09:27:00 [facility] FIBRINOGEN 2022-05-30 09:27:00 [facility] PHOSPHORUS 2022-05-30 09:27:00 [facility] MAGNESIUM 2022-05-30 09:27:00 [facility] BASIC METABOLIC PANEL 2022-05-30 09:27:00 Chrits [facility] (NA, K, CL, CO2, GLUCOSE, Medica l Branch BUN, CREATININE, CA) CBC WITH DIFF 2022-05-30 09:27:00 [facility] ACTIVATED PARTIAL 2022-05-30 09:27:00 [facility] FIBRINOGEN 2022-05-30 09:27:00 [facility] PHOSPHORUS 2022-05-30 09:27:00 [facility] MAGNESIUM 2022-05-30 09:27:00 [facility] BASIC METABOLIC PANEL 2022-05-30 09:27:00 [facility], K, CL, CO2, GLUCOSE, Medica l Branch BUN, CREATININE, CA) CBC WITH DIFF 2022-05-30 09:27:00 [facility] ACTIVATED PARTIAL 2022-05-30 09:27:00 [facility]-30 09:27:00 [facility] PHOSPHORUS 2022-05-30 09:27:00 [facility] MAGNESIUM 2022-05-30 09:27:00 [facility] BASIC METABOLIC PANEL 2022-05-30 09:27:00 [facility] (NA, K, CL, CO2, GLUCOSE, Medica l Branch BUN, CREATININE, CA) CBC WITH DIFF 2022-05-30 09:27:00 [facility] ACTIVATED PARTIAL 2022-05-30 09:27:00 [facility] FIBRINOGEN 2022-05-30 09:27:00 [facility] FIBRINOGEN 2022-05-30 06:58:00 [facility] FIBRINOGEN 2022-05-30 06:58:00 [facility] FIBRINOGEN 2022-05-30 06:58:00 [facility] FIBRINOGEN 2022-05-30 06:58:00 [facility] ACTIVATED PARTIAL 2022-05-30 06:13:00 [facility] ACTIVATED PARTIAL 2022-05-30 06:13:00 [facility] ACTIVATED PARTIAL 2022-05-30 06:13:00 Christ [facility] ACTIVATED PARTIAL 2022-05-30 06:13:00 Ryley [facility] FIBRINOGEN 2022-05-30 04:43:00 [facility] FIBRINOGEN 2022-05-30 04:43:00 Cris [facility] FIBRINOGEN 2022-05-30 04:43:00 Cris [facility] FIBRINOGEN 2022-05-30 04:43:00 Cris [facility] FIBRINOGEN 2022-05-29 23:24:00 [facility] FIBRINOGEN 2022-05-29 23:24:00 [facility] FIBRINOGEN 2022-05-29 23:24:00 [facility] FIBRINOGEN 2022-05-29 23:24:00 [facility] FIBRINOGEN 2022-05-29 21:10:00 [facility] FIBRINOGEN 2022-05-29 21:10:00 Cris [facility] FIBRINOGEN 2022-05-29 21:10:00 Cris [facility] FIBRINOGEN 2022-05-29 21:10:00 Cris [facility] BASIC METABOLIC PANEL 2022-05-29 14:55:00 Armando Pandey [facility] (NA, K, CL, CO2, GLUCOSE, Medica l Branch BUN, CREATININE, CA) CBC WITH DIFF 2022-05-29 14:55:00 [facility]-29 14:55:00 Cris [facility] BASIC METABOLIC PANEL 2022-05-29 14:55:00 Armando Pandey [facility] (NA, K, CL, CO2, GLUCOSE, Medica l Branch BUN, CREATININE, CA) CBC WITH DIFF 2022-05-29 14:55:00 [facility]-05-29 14:55:00 Cris, [facility] BASIC METABOLIC PANEL 2022-05-29 14:55:00 Dannie Armando [facility] (NA, K, CL, CO2, GLUCOSE, Medica l Branch BUN, CREATININE, CA) CBC WITH DIFF 2022-05-29 14:55:00 Armando Pandey [facility] FIBRINOGEN 2022-05-29 14:55:00 Cris Allan [facility] BASIC METABOLIC PANEL 2022-05-29 14:55:00 Dannie [facility] (NA, K, CL, CO2, GLUCOSE, Medica l Branch BUN, CREATININE, CA) CBC WITH DIFF 2022-05-29 14:55:00 Dannie Armando [facility] FIBRINOGEN 2022-05-29 14:55:00 Cris [facility] [place] TIME OR 2022-05-29 14:03:00 Haley [facility] (NON-REPORTABLE) [facility] [place] TIME OR 2022-05-29 14:03:00 Haley [facility] (NON-REPORTABLE) [facility] [place] TIME OR 2022-05-29 14:03:00 Alejandroprashant [facility] (NON-REPORTABLE) [facility] [place] TIME OR 2022-05-29 14:03:00 Haley [facility] (NON-REPORTABLE) [facility] VENOUS THROMBOLYSIS 2022-05-29 12:05:00 Allan Lynch [facility] VENOUS THROMBOLYSIS 2022-05-29 12:05:00 Allan Lynch [facility] MAGNESIUM 2022-05-29 11:11:00 Reyna [facility] BASIC METABOLIC PANEL 2022-05-29 11:11:00 Amber Orellana [facility] (NA, K, CL, CO2, GLUCOSE, Medica l Branch BUN, CREATININE, CA) CBC WITHOUT DIFF 2022-05-29 11:11:00 Reyna [facility] ACTIVATED PARTIAL 2022-05-29 11:11:00 Reyna [facility] MAGNESIUM 2022-05-29 11:11:00 Reyna [facility] BASIC METABOLIC PANEL 2022-05-29 11:11:00 [facility] (NA, K, CL, CO2, GLUCOSE, Medica l Branch BUN, CREATININE, CA) CBC WITHOUT DIFF 2022-05-29 11:11:00 Reyna [facility] ACTIVATED PARTIAL 2022-05-29 11:11:00 Reyna [facility] MAGNESIUM 2022-05-29 11:11:00 Reyna [facility] BASIC METABOLIC PANEL 2022-05-29 11:11:00 Reyna [facility] (NA, K, CL, CO2, GLUCOSE, Medica l Branch BUN, CREATININE, CA) CBC WITHOUT DIFF 2022-05-29 11:11:00 Reyna [facility] ACTIVATED PARTIAL 2022-05-29 11:11:00 Reyna [facility] MAGNESIUM 2022-05-29 11:11:00 Reyna [facility] BASIC METABOLIC PANEL 2022-05-29 11:11:00 [facility] (NA, K, CL, CO2, GLUCOSE, Medica l Branch BUN, CREATININE, CA) CBC WITHOUT DIFF 2022-05-29 11:11:00 Reyna [facility] ACTIVATED PARTIAL 2022-05-29 11:11:00 Reyna [facility] ABORH CONFIRMATION (LAB 2022-05-28 23:34:[address] [facility] ONLY) Medical Branch ABORH CONFIRMATION (LAB 2022-05-28 23:34:[address] [facility] ONLY) Medical Branch ABORH CONFIRMATION (LAB 2022-05-28 23:34:[address] [facility] ONLY) Medical Branch ABORH CONFIRMATION (LAB 2022-05-28 23:34:[address] [facility] ONLY) Medical Branch HB ABO GROUPING 2022-05-28 23:00:00 [facility] HB ABO GROUPING 2022-05-28 23:00:00 [employer] [facility] HB ABO GROUPING 2022-05-28 23:00:00 [employer] [facility] HB ABO GROUPING 2022-05-28 23:00:00 [facility] ACTIVATED PARTIAL 2022-05-28 22:59:00 [facility] 2022-05-28 22:59:00 [facility] 2022-05-28 22:59:00 Reyna [facility] ACTIVATED PARTIAL 2022-05-28 22:59:00 [facility] / INR 2022-05-28 17:23:00 Amber Orellana [facility] ACTIVATED PARTIAL 2022-05-28 17:23:00 Reyna [facility] PROTHROMBIN TIME / INR 2022-05-28 17:23:00 [facility] ACTIVATED PARTIAL 2022-05-28 17:23:00 [facility] PROT[facility]OMBIN TIME / INR 2022-05-28 17:23:00 Amber Orellana [facility] ACTIVATED PARTIAL 2022-05-28 17:23:00 [facility] / INR 2022-05-28 17:23:00 Amber Orellana [facility] ACTIVATED PARTIAL 2022-05-28 17:23:00 [facility] BASIC METABOLIC PANEL 2022-05-28 09:09:00 Chrystal Friedman [facility] (NA, K, CL, CO2, GLUCOSE, Medica l Branch BUN, CREATININE, CA) CBC WITH DIFF 2022-05-28 09:09:00 Chrystal Friedman [facility] FACTOR 5 LEIDEN 2022-05-28 09:09:00 Winifred [facility] FACTOR 2 [id number] MUTATION 2022-05-28 09:09:00 [facility]eth [facility] F5 LEIDEN AND F2 [id number] 2022-05-28 09:09:00 Liseth Vitale [facility] BASIC METABOLIC PANEL 2022-05-28 09:09:00 [facility] (NA, K, CL, CO2, GLUCOSE, Medica l Branch BUN, CREATININE, CA) CBC WITH DIFF 2022-05-28 09:09:00 [facility] 2022-05-28 09:09:00 Winifred [facility] FACTOR 2 [id number] MUTATION 2022-05-28 09:09:00 Liseth Vitale Un [facility] F5 LEIDEN AND F2 [id number] 2022-05-28 09:09:00 Liseth Vitale [facility] BASIC METABOLIC PANEL 2022-05-28 09:09:00 Chrystal Friedman [facility] (NA, K, CL, CO2, GLUCOSE, Medica l Branch BUN, CREATININE, CA) CBC WITH DIFF 2022-05-28 09:09:00 Chrystal Friedman [facility] FACTOR 5 LEIDEN 2022-05-28 09:09:00 Winifred [facility] FACTOR 2 [id number] MUTATION 2022-05-28 09:09:00 Liseth [facility] F5 LEIDEN AND F2 [id number] 2022-05-28 09:09:00 Liseth Vitale [facility] BASIC METABOLIC PANEL 2022-05-28 09:09:00 [facility] (NA, K, CL, CO2, GLUCOSE, Medica l Branch BUN, CREATININE, CA) CBC WITH DIFF 2022-05-28 09:09:00 Chrystal Friedman [facility] FACTOR 5 LEIDEN 2022-05-28 09:09:00 Winifred [facility] FACTOR 2 [id number] MUTATION 2022-05-28 09:09:00 [facility] AND F2 [id number] 2022-05-28 09:09:00 Liseth Vitale [facility] TRANSTHORACIC ECHO (TTE) 2022-05-27 15:47:00 [facility]/ CONTRAST [facility] TRANSTHORACIC ECHO (TTE) 2022-05-27 15:47:00 [facility]/ CONTRAST [facility] TRANSTHORACIC ECHO (TTE) 2022-05-27 15:47:00 [facility] TRANSTHORACIC ECHO (TTE) 2022-05-27 15:47:00 Chrystal [facility] W/ CONTRAST Medical [facility] CT ABDOMEN PELVIS W 2022-05-27 11:28:06 [facility] ABDOMEN PELVIS W 2022-05-27 11:28:06 [facility] ABDOMEN PELVIS W 2022-05-27 11:28:06 [facility] CT ABDOMEN PELVIS W 2022-05-27 11:28:06 [facility] CONTRAST Medical Branch BASIC METABOLIC PANEL 2022-05-27 09:45:00 [facility] (NA, K, CL, CO2, GLUCOSE, Medica l Branch BUN, CREATININE, CA) CBC WITH DIFF 2022-05-27 09:45:00 [facility] GLYCOSYL[facility]EMOGLOBIN 2022-05-27 09:45:00 [facility] [place] BASIC METABOLIC PANEL 2022-05-27 09:45:00 [facility] (NA, K, CL, CO2, GLUCOSE, Medica l Branch BUN, CREATININE, CA) CBC WITH DIFF 2022-05-27 09:45:[address] [facility] [place] GLYCOSYLATED HEMOGLOBIN 2022-05-27 09:45:00 [facility] BASIC METABOLIC PANEL 2022-05-27 09:45:00 [facility] (NA, K, CL, CO2, GLUCOSE, Medica l Branch BUN, CREATININE, CA) CBC WITH DIFF 2022-05-27 09:45:[address] [facility] [place] GLYCOSYLATED HEMOGLOBIN 2022-05-27 09:45:00 [facility] [place] BASIC METABOLIC PANEL 2022-05-27 09:45:00 [facility] (NA, K, CL, CO2, GLUCOSE, Medica l Branch BUN, CREATININE, CA) CBC WITH DIFF 2022-05-27 09:45:00 [facility] GLYCOSYLATED HEMOGLOBIN 2022-05-27 09:45:00 [facility] DUPLEX VENOUS LEGS 2022-05-27 01:08:52 Meche Zapata [facility] BILATERAL - BY VASCULAR [facility] [place] LAB DUPLEX VENOUS LEGS 2022-05-27 01:08:52 Meche Zapata [facility] BILATERAL - BY VASCULAR [facility] [place] LAB DUPLEX VENOUS LEGS 2022-05-27 01:08:52 Meche Zapata [facility] BILATERAL - BY VASCULAR [facility] LAB DUPLEX VENOUS LEGS 2022-05-27 01:08:52 Meche Zapata [facility] BILATERAL - BY VASCULAR [facility] LAB URINE DRUG (IMMUNOASSAY) 2022-05-26 22:13:00 [facility] COMPREHENSIVE DRUG Medical [facility] SCREEN URINALYSIS 2022-05-26 22:13:[address] [facility] URINE DRUG (IMMUNOASSAY) 2022-05-26 22:13:00 Ondina Yusuf [facility] SCREEN URINALYSIS 2022-05-26 22:13:00 Meche Zapata [facility] URINE DRUG (IMMUNOASSAY) 2022-05-26 22:13:00 Ondina Yusuf [facility] SCREEN URINALYSIS 2022-05-26 22:13:00 Meche Zapata [facility] URINE DRUG (IMMUNOASSAY) 2022-05-26 22:13:00 Ondina Yusuf [facility] SCREEN URINALYSIS 2022-05-26 22:13:00 Meche Zapata [facility] HB ECG ROUTINE & RHYTHM 2022-05-26 21:43:55 Meche Zapata [facility] HB ECG ROUTINE & RHYTHM 2022-05-26 21:43:55 Meche Zapata Meme [facility] HB ECG ROUTINE & RHYTHM 2022-05-26 21:43:[address] [facility] HB ECG ROUTINE & RHYTHM 2022-05-26 21:43:[address] [facility] XR CHEST 1 2022-05-26 21:37:[address] [facility] XR CHEST 1 2022-05-26 21:37:08 Meche Zapata [facility] XR CHEST 1 2022-05-26 21:37:08 Meche Zapata Meme [facility] XR CHEST 1 2022-05-26 21:37:08 Meche Zapata [facility] MAGNESIUM 2022-05-26 21:20:00 Meche Zapata [facility] TROPONIN I 2022-05-26 21:20:00 Meche Zapata [facility] COMP. METABOLIC PANEL 2022-05-26 21:20:00 Meche Zapata [facility] ([id number]) [facility] CBC WITH DIFF 2022-05-26 21:20:00 Meche Zapata [facility] N-TERMINAL PRO-BNP 2022-05-26 21:20:00 Meche Zapata [facility] MAGNESIUM 2022-05-26 21:20:00 Meche Zapata [facility] TROPONIN I 2022-05-26 21:20:00 Meche Zapata [facility] COMP. METABOLIC PANEL 2022-05-26 21:20:00 Meche Zapata [facility] ([id number]) [facility] CBC WITH DIFF 2022-05-26 21:20:00 JodiMeche delarosa [facility] N-TERMINAL PRO-BNP 2022-05-26 21:20:00 Meche Zapata [facility] MAGNESIUM 2022-05-26 21:20:00 Meche Zapata [facility] TROPONIN I 2022-05-26 21:20:00 Meche Zapata [facility] COMP. METABOLIC PANEL 2022-05-26 21:20:00 Meche Zapata [facility] ([id number]) [facility] CBC WITH DIFF 2022-05-26 21:20:00 Meche Zapata [facility] N-TERMINAL PRO-BNP 2022-05-26 21:20:00 Meche Zapata [facility] MAGNESIUM 2022-05-26 21:20:00 Meche Zapata [facility] TROPONIN I 2022-05-26 21:20:00 Meche Zapata [facility] COMP. METABOLIC PANEL 2022-05-26 21:20:00 Meche Zapata [facility] ([id number]) [facility] CBC WITH DIFF 2022-05-26 21:20:00 Meche Zapata [facility] N-TERMINAL PRO-BNP 2022-05-26 21:20:00 Meche Zapata [facility] HOSPITAL ADMISSION 2022-05-26 05:01:00 Doctor Unassigned, [facility] ADMISSION 2022-05-26 05:01:00 Doctor Unassagnes, [facility] HOSPITAL ADMISSION 2022-05-26 05:01:00 Doctor Sergo, [facility] XR LUMBAR SPINE 3 VW 2022-05-23 09:47:55 Herminio Corbin [facility] [place] DISCLOSURE AND CONSENT, 2022-05-19 05:01:00 Doctor Sergo, [facility] MEDICAL AND SURGICAL [place] [facility] PROCEDURES PATIENT QUESTIONNAIRE 2022-05-17 05:01:00 Doctor Sergo, [facility] INSURANCE CORRESPONDENCE 2022-05-16 05:01:00 Doctor Sergo, [facility] INSURANCE CORRESPONDENCE 2022-05-04 05:01:00 Doctor Sergo, [facility] [place] DME/SUPPLY JUSTIFICATION 2022-04-22 06:01:00 Doctor Sergo, [facility] PATIENT FINANCIAL 2022-04-13 15:27:54 Doctor Sergo, [facility] POLICY [facility] SLEEP STUDY DATA REPORT 2022-04-02 06:01:00 Doctor Sergo [facility] XR HIPS 2 VW RIGHT 2022-03-24 14:56:12 Alphonse Manjarrez [facility] MR LUMBAR SPINE WO 2022-03-24 14:41:33 Delroy Farah [facility] CONTRAST Medical Branch INSURANCE CORRESPONDENCE 2022-02-15 06:01:00 Doctor Sergo, [facility] EXTERNAL PROVIDER RECORDS 2022-02-03 06:01:00 Doctor Sergo, [facility] REFERRAL- 2022-01-17 06:01:00 Doctor Sergo [facility] REQUEST/RESPONSE [facility] ASSIGNMENT OF BENEFITS 2021-12-08 15:11:38 Doctor Trotter, [facility] SLEEP STUDY DATA REPORT 2021-11-04 05:01:00 Doctor Sergo [facility] Plan of Care Planned Activity Planned Date Details Comments Source Future Scheduled 2022-10-[address] [facility] Test 00:00:00 (Season Ended) [code = Medic al Center INFLUENZA VACCINE (Season Ended)] Future Scheduled 2022-10-[address] [facility] Test 00:00:00 (Season Ended) [code = Medic al Center INFLUENZA VACCINE (Season Ended)] Future Scheduled 2022-07-19 Screening for [facility] Test 13:32:24 malignant neoplasm of colon (procedure) [code = 205720915] Future Scheduled 2022-07-19 Screening for [facility] Test 13:32:24 malignant neoplasm of colon (procedure) [code = 564218394] Future Scheduled 2022-07-19 COVID-19 [facility] 13:32:24 [code = COVID-19 VACCINE (#1)] Future Scheduled 2022-07-19 [facility] 13:32:24 (procedure) [code = 241777717] Future Scheduled 2022-07-19 Screening for [facility] Test 13:32:24 malignant neoplasm of colon (procedure) [code = 877427963] Future Scheduled 2022-07-19 Screening for [facility] Test 13:32:24 malignant neoplasm of colon (procedure) [code = 281235942] Future Scheduled 2022-07-19 SHINGLES VACCINES ([facility] 13:32:24 of 2) [code = SHINGLES VACCINES (1 of 2)] Future Scheduled 2022-07-19 [facility]ZA VACCINE [facility] 13:32:24 [code = INFLUENZA VACCINE] Future Scheduled 2022-07-19 Screening for [facility] Test 13:32:24 malignant neoplasm of colon (procedure) [code = 240957080] Future Scheduled 2022-07-19 Screening for [facility] Test 13:32:24 malignant neoplasm of colon (procedure) [code = 382462966] Future Scheduled 2022-07-19 Screening for [facility] Test 13:32:24 malignant neoplasm of colon (procedure) [code = 136614081] Future Scheduled 2022-07-19 COVID-19 VACCINE (#1) [facility] 13:32:24 [code = COVID-19 VACCINE (#1)] Future Scheduled 2022-07-19 Hepatitis C screening [facility] Test 13:32:24 (procedure) [code = 239961953] Future Scheduled 2022-07-19 Screening for [facility] Test 13:32:24 malignant neoplasm of colon (procedure) [code = 531588112] Future Scheduled 2022-07-19 Screening for [facility] Test 13:32:24 malignant neoplasm of colon (procedure) [code = 703764068] Future Scheduled 2022-07-19 SHINGLES VACCINES (1 [facility] 13:32:24 of 2) [code = SHINGLES VACCINES (1 of 2)] Future Scheduled 2022-07-19 IN[facility]ENZA VACCINE [facility] 13:32:24 [code = INFLUENZA VACCINE] Future Scheduled 2022-07-19 Screening for [facility] Test 13:32:24 malignant neoplasm of colon (procedure) [code = 353536098] Future Scheduled 2022-07-19 Screening for [facility] Test 13:32:24 malignant neoplasm of colon (procedure) [code = 945542548] Future Scheduled 2022-07-19 Screening for [facility] Test 13:32:24 malignant neoplasm of colon (procedure) [code = 800248945] Future Scheduled 2022-07-19 COVID-19 VACCINE (#1) [facility] Test 13:32:24 [code = COVID-19 VACCINE (#1)] Future Scheduled 2022-07-19 Hepatitis C screening [facility] Test 13:32:24 (procedure) [code = 322666574] Future Scheduled 2022-07-19 Screening for [facility] Test 13:32:24 malignant neoplasm of colon (procedure) [code = 258158141] Future Scheduled 2022-07-19 Screening for [facility] Test 13:32:24 malignant neoplasm of colon (procedure) [code = 194693868] Future Scheduled 2022-07-19 SHINGLES VACCINES (1 [facility] 13:32:24 of 2) [code = SHINGLES VACCINES (1 of 2)] Future Scheduled 2022-07-19 INFL[facility]ENZA VACCINE [facility] 13:32:24 [code = INFLUENZA VACCINE] Future Scheduled 2022-07-19 Screening for [facility] Test 13:32:24 malignant neoplasm of colon (procedure) [code = 937911056] Future Scheduled 2022-07-19 Screening for [facility] Test 13:32:24 malignant neoplasm of colon (procedure) [code = 221097328] Future Scheduled 2022-07-19 Screening for [facility] Test 13:32:24 malignant neoplasm of colon (procedure) [code = 689257668] Future Scheduled 2022-07-19 COVID-19 VACCINE (#1) [facility] 13:32:24 [code = COVID-19 VACCINE (#1)] Future Scheduled 2022-07-19 [facility] 13:32:24 (procedure) [code = 558354122] Future Scheduled 2022-07-19 Screening for [facility] Test 13:32:24 malignant neoplasm of colon (procedure) [code = 276812715] Future Scheduled 2022-07-19 Screening for [facility] Test 13:32:24 malignant neoplasm of colon (procedure) [code = 377530346] Future Scheduled 2022-07-19 SHINGLES VACCINES (1 [facility] 13:32:24 of 2) [code = SHINGLES VACCINES (1 of 2)] Future Scheduled 2022-07-19 INFLUENZA VACCINE [facility] 13:32:24 [code = INFLUENZA VACCINE] Future Scheduled 2022-07-19 Screening for [facility] Test 13:32:24 malignant neoplasm of colon (procedure) [code = 598723154] Future Scheduled 2022-07-19 Screening for [facility] Test 13:32:24 malignant neoplasm of colon (procedure) [code = 451631288] Future Scheduled 2022-07-19 Screening for [facility] Test 13:32:24 malignant neoplasm of colon (procedure) [code = 791247705] Future Scheduled 2022-07-19 Screening for [facility] Test 13:32:24 malignant neoplasm of colon (procedure) [code = 562624540] Future Scheduled 2022-07-19 COVID-19 VACCINE [facility]) [facility] 13:32:24 [code = COVID-19 VACCINE (#1)] Future Scheduled 2022-07-19 Hepatitis C screening [facility] Test 13:32:24 (procedure) [code = 868993385] Future Scheduled 2022-07-19 Screening for [facility] Test 13:32:24 malignant neoplasm of colon (procedure) [code = 994058499] Future Scheduled 2022-07-19 Screening for [facility] Test 13:32:24 malignant neoplasm of colon (procedure) [code = 316049970] Future Scheduled 2022-07-19 [facility]IN[facility] ([facility] 13:32:24 of 2) [code = SHINGLES VACCINES (1 of 2)] Future Scheduled 2022-07-19 INFLUENZA VACCINE [facility] Test 13:32:24 [code = INFLUENZA VACCINE] Future Scheduled 2022-07-10 COVID-19 VACCINE (#1) [facility] Test 23:57:37 [code = COVID-19 VACCINE (#1)] Future Scheduled 2022-07-10 Hepatitis C screening [facility] 23:57:37 (procedure) [code = 260917611] Future Scheduled 2022-07-10 [facility]OSCOPY [facility]CREENING [facility] 23:57:37 [code = COLONOSCOPY SCREENING] Future Scheduled 2022-07-10 SHINGLES VACCINES (1 [facility] Test 23:57:37 of 2) [code = SHINGLES VACCINES (1 of 2)] Future Scheduled 2022-07-10 INFLUENZA VACCINE [facility] Test 23:57:37 [code = INFLUENZA VACCINE] Future Scheduled 2022-07-10 COVID-19 VACCINE (#1) [facility] Test 23:57:37 [code = COVID-19 VACCINE (#1)] Future Scheduled 2022-07-10 [facility] C screening [facility] 23:57:37 (procedure) [code = 940813539] Future Scheduled 2022-07-10 [facility]ING [facility] 23:57:37 [code = COLONOSCOPY SCREENING] Future Scheduled 2022-07-10 SHINGLES VACCINES (1 [facility] 23:57:37 of 2) [code = SHINGLES VACCINES (1 of 2)] Future Scheduled 2022-07-10 INFLUENZA VACCINE [facility] Test 23:57:37 [code = INFLUENZA VACCINE] Future Scheduled 2022-07-10 COVID-19 VACCINE (#1) [facility] Test 23:57:37 [code = COVID-19 VACCINE (#1)] Future Scheduled 2022-07-10 [facility] 23:57:37 (procedure) [code = 411037221] Future Scheduled 2022-07-10 Screening for [facility] Test 23:57:37 malignant neoplasm of colon (procedure) [code = 743630825] Future Scheduled 2022-07-10 SHINGLES VACCINES (1 [facility] 23:57:37 of 2) [code = SHINGLES VACCINES (1 of 2)] Future Scheduled 2022-07-10 INFLUENZA VACCINE [facility] Test 23:57:37 [code = INFLUENZA VACCINE] Future Scheduled 2022-07-03 COVID-19 VACCINE (#1) [facility] 23:24:31 [code = COVID-19 VACCINE (#1)] Future Scheduled 2022-07-03 Hepatitis C screening [facility] Test 23:24:31 (procedure) [code = 734065513] Future Scheduled 2022-07-03 [facility] 23:24:31 [code = COLONOSCOPY SCREENING] Future Scheduled 2022-07-03 SHINGLES VACCINES (1 [facility] 23:24:31 of 2) [code = SHINGLES VACCINES (1 of 2)] Future Scheduled 2022-07-03 INFLUENZA VACCINE [facility] Test 23:24:31 [code = INFLUENZA VACCINE] Future Scheduled 2022-05-18 COVID-19 VACCINE (#1) [facility] Test 20:48:55 [code = COVID-19 VACCINE (#1)] Future Scheduled 2022-05-18 Hepatitis C screening [facility] Test 20:48:55 (procedure) [code = 211872011] Future Scheduled 2022-05-18 [facility]COPY [facility]ENING [facility] 20:48:55 [code = COLONOSCOPY SCREENING] Future Scheduled 2022-05-18 SHINGLES VACCINES (1 [facility] 20:48:55 of 2) [code = SHINGLES VACCINES (1 of 2)] Future Scheduled 2022-05-18 INFLUENZA VACCINE [facility] Test 20:48:55 [code = INFLUENZA VACCINE] Future Scheduled 2022-05-18 COVID-19 VACCINE (#1) [facility] 20:48:55 [code = COVID-19 VACCINE (#1)] Future Scheduled 2022-05-18 [facility] C [facility] 20:48:55 (procedure) [code = 591576615] Future Scheduled 2022-05-18 COLONOSCOPY SCREENING Me [facility] [...] Future Scheduled 2021-10-15 HEPATITIS B VACCINES [facility] 19:26:49 (1 of 3 - 3-dose series) [code = HEPATITIS B VACCINES (1 of 3 - 3-dose series)] Future Scheduled 2021-10-15 COVID-19 VACCINE (#1) [facility] 19:26:49 [code = COVID-19 VACCINE (#1)] Future Scheduled 2021-10-15 [facility] 19:26:49 (procedure) [code = 888600332] Future Scheduled 2021-10-15 [facility]ONOSCOPY [facility]CREENING [facility] 19:26:49 [code = COLONOSCOPY SCREENING] Future Scheduled 2021-10-15 SHINGLES VACCINES (1 [facility] 19:26:49 of 2) [code = SHINGLES VACCINES (1 of 2)] Future Scheduled 2021-10-15 INFLUENZA VACCINE [facility] Test 19:26:49 [code = INFLUENZA VACCINE] Future Scheduled 2021-10-12 HEPATITIS B VACCINES [facility] 17:47:43 (1 of 3 - 3-dose series) [code = HEPATITIS B VACCINES (1 of 3 - 3-dose series)] Future Scheduled 2021-10-12 COVID-19 VACCINE (#1) [facility] 17:47:43 [code = COVID-19 VACCINE (#1)] Future Scheduled 2021-10-12 Hepatitis C screening [facility] Test 17:47:43 (procedure) [code = 616947669] Future Scheduled 2021-10-12 COLONOSCOPY SCREENING [facility] Test 17:47:43 [code = COLONOSCOPY SCREENING] Future Scheduled 2021-10-12 SHINGLES VACCINES (1 [facility] Test 17:47:43 of 2) [code = SHINGLES VACCINES (1 of 2)] Future Scheduled 2021-10-12 INFLUENZA VACCINE Method [facility] Test 17:47:43 [code = [...] Luke s Test 00:00:00 (procedure) [code = [facility] 46185715] Future Scheduled [address] [facility] 00:[facility]:00 (procedure) [code = [facility] 72112092] Future Scheduled 1981 DTAP/TDAP/TD VACCINES [facility] [...] [facility]ica l Center colon (procedure) [code = 775366573] Future Scheduled [address] [facility] malignant neoplasm of [facility] colon (procedure) [code = 495196492] Future Scheduled [address] [facility] 00:[facility]:00 malignant neoplasm of [facility] colon (procedure) [code = 781123840] Future Scheduled [address] [facility] [facility] 00:00:00 malignant neoplasm of [facility]ica [facility] Center colon (procedure) [code = 128746688] Future Scheduled 1962 Sigmoidoscopy [facility] Medical Cent[facility] r Future Scheduled [address] [facility] 00:00:00 (combo) [code = CT Medical C enter Colonography (combo)] Future Scheduled [address] [facility] [facility] Test 00[facility]00:00 malignant neoplasm of [facility]ica [facility] Center colon (procedure) [code = 526094407] Future Scheduled [address] [facility] Test 00:00:00 malignant neoplasm of [facility] Center colon (procedure) [code = 542736613] Future Scheduled [address] [facility] [facility] Test 00:00:00 malignant neoplasm of [facility]ica [facility] Center colon (procedure) [code = 495303201] Future Scheduled [address] [facility] Test 00:00:00 malignant neoplasm of Medica [facility] colon (procedure) [code = 524638239] Future Scheduled 1962 S[facility]oidoscopy [facility]] Medical Cente r Encounters Start End Encounter Admission Attending Care Care Encounter Source Date/Time Date/Time Type Type Clinicians Facility Department ID 2022-07-21 Inpatient ER [facility] Oncology [id number] [facility] 07[facility] 2022-06-11 Outpatient 3 [id number] E[facility] PM [facility] 03:48:38 [facility] [place] 2022-06-10 Outpatient 3 [id number] E[place] [id number] [facility] 02:10:29 0428 [facility] [place] 2022-06-09 Outpatient 3 [id number] [place] [id number] [facility] 10:37:19 0427 [facility] [place] 2022-06-01 Outpatient R BECCA PHAM [facility] TIFFANY [id number] Univers 14:27:32 BECCA PHAM [facility] 2022-06-01 Outpatient 3 [id number] ENC[facility] REF [id number] [facility] 12:13:29 0419 [facility] [place] 2020-12-14 Emergency [facility] [id number] Univers 03:38:20 ity [facility] 2020-12-14 Emergency [facility] [id number] Univers 02:28:47 ity [facility] 2020-12-14 Emergency [facility] [id number] Univers 02:03:46 ity [facility] 2020-12-13 Emergency [facility] [id number] Univers 15:19:05 ity [facility] 2020-02-02 Inpatient [facility] [id number] [facility] 19:02:00 2020-02-02 Inpatient [facility] [id number] [facility] 19:02:00 2022-09-15 2022-09-15 Outpatient R LAWRENCE PETERSON [facility] 1 [id number] Univers 10:00:00 10:00:00 LAWRENCE PETERSON [facility] 2022-08-03 2022-08-03 Outpatient R JERRICA [facility] [id number] Univers 10:15:00 10:15:00 ROBINA kirit [facility] 2022-07-23 2022-07-23 Emergency [facility] [id number] Univers 12:04:00 12:53:00 PATRICIA [facility] 2022-07-23 2022-07-23 Emergency [facility] 1.2.732.509 [id number] Univers 12:04:00 12:53:00 Patricia TORREZ 350.1.13.10 i ty [facility] [place] [id number] [address] 2022-07-20 2022-07-20 Emergency X [facility] ERT [id number] Univers 04:39:00 05:00:00 ity [facility] 2022-07-20 2022-07-20 Emergency [facility] [id number] Univers 04:39:00 05:00:00 [place] 350.1.13.10 i ty [place] [id number] [address] 2022-07-20 2022-07-20 Telephone [facility] 1.2.840.114 [id number] Univers 00:00:00 00:00:00 [facility] 350.1.13.10 it y of José Miguel [place] 4.2.7.2.686 Neal as MÓNICA?BLEA [id number] [address] MEDICAL OFFICE BUILDING 2022-07-18 2022-07-18 Transition ANASTASIIA [place] 1.2.840.114 [id number] Univers 00:00:00 00:00:00 of Care Elyssa BENNETT 350.1.13.10 i ty of [place] [id number] [facility] [address] 2022-07-16 2022-07-16 Outpatient U LAWRENCE PETERSON [facility] SV 1 [id number] Univers 09:11:00 12:30:00 LAWRENCE PETERSON of [facility] 2022-07-16 2022-07-16 Hospital TYE Peterson 1.2.840.114 [id number] Univers 09:11:00 12:30:00 Encounter Lawrence BEARD 350.1.13.10 ity of [facility] 4.2.7.2.686 Neal as [id number] [facility] [address] 2022-07-12 2022-07-12 Inpatient ER [facility]AL [facility] Medical ICU [id number] [facility] 04:02:00 14:55:00 [place] 2022-07-11 2022-07-11 Emergency X [facility], [facility] ERT [id number] Univers 10:09:00 11:10:00 [facility] 2022-07-11 2022-07-11 Emergency X NINI, [facility] ERT [id number] Univers 10:09:00 11:10:00 [facility] 2022-07-11 2022-07-11 Emergency Nini, TRAUMA 1.2.518.154 [id number] Univers 10:09:00 11:10:00 [facility] 350.1.13.10 it [place] [id number] [facility] [address] 2022-07-11 2022-07-11 Emergency X CRUZ, [facility] ERT [id number] Univers 04:26:00 07:38:00 RAMANA kirit [facility] 2022-07-11 2022-07-11 Emergency Morrical, Ángel O TRAU[place] 1.2. 840.114 [id number] Univers 04:26:00 07:38:00 Ramana Cruz [facility] 350.1.13 .10 [place] [id number] [facility] [address] 2022-07-11 2022-07-11 Emergency [facility] 1.2.235.805 [id number] Univers 00:22:00 00:26:00 [place] 350.1.13.10 i ty [place] [id number] [facility] [address] 2022-07-08 2022-07-08 Emergency X [facility] ERT [id number] Univers 13:26:00 13:45:00 ity [facility] 2022-07-08 2022-07-08 Emergency TRAUMA 1.2.709.365 [id number] Univers 13:26:00 13:45:00 CENTER 350.1.13.10 [place] [id number] [facility] [address] 2022-07-05 2022-07-05 Outpatient Zeke BECERRIL [facility] [id number] Univers 14:30:00 14:30:00 ROBINA [facility] 2022-07-05 2022-07-05 Outpatient Zeke BECERRIL [facility] [id number] Univers 14:30:00 14:30:00 ROBINA [facility] 2022-07-05 2022-07-05 Emergency X PANKAJ [facility] ERT [id number] Univers 05:53:00 11:12:00 ARISTEO [facility] 2022-07-05 2022-07-05 Emergency HillHilda TRAUMA 1.2.840 .114 [id number] Univers 05:53:00 11:12:00 Aristeo Trinidad CORRY 350.1.13.10 [place] [id number] [facility] [address] 2022-07-04 2022-07-04 Emergency [facility] 1.2.589.685 [id number] Univers 14:13:00 14:19:00 [place] 350.1.13.10 i ty of [place] [id number] [facility] [address] 2022-07-04 2022-07-04 Outpatient Zeke BECERRIL [facility] [id number] Univers 14:00:00 14:00:00 ROBINA [facility] 2022-07-04 2022-07-04 Outpatient Zeke BECERRIL [facility] ERT [id number] Univers 14:00:00 14:00:00 ROBINA kirit [facility] 2022-07-04 2022-07-04 Ira Dumontka, [facility] 1.2.840.114 [id number] Univers 00:00:00 00:00:00 Robina HEALTH 350.1.13.10 it y of [place] 4.2.7.2.686 Neal as MÓNICA?BLEA [id number] [address] OFFICE [facility] 2022-07-04 2022-07-04 Refill [facility] 1.2.840.114 [id number] Univers 00:00:00 00:00:00 Robina HEALTH 350.1.13.10 it y of [place] 4.2.7.2.686 Neal as MÓNICA?BLEA [id number] [address] OFFICE [facility] 2022-06-28 2022-06-28 Telephone [facility] 1.2.198.653 [id number] Univers 00:00:00 00:00:00 [facility] 350.1.13.10 i ty [place] [id number] [address] OFFICE [facility] 2022-06-27 2022-06-27 Outpatient R BECCA PHAM [facility] [id number] Univers 13:15:00 13:15:00 BECCA PHAM [facility] 2022-06-21 2022-06-23 Inpatient ER RHETT MOORE Oncology [id number] [facility] 08:54:00 18:00:00 [facility] 2022-06-21 2022-06-23 Hospital ER Kaden [facility] 1 [id number] [facility] 08:54:00 18:00:00 [facility]22-06-22 2022-06-22 Telephone [facility] 1.2.840.114 [id number] Univers 00:00:00 00:00:00 Robina HEALTH 350.1.13.10 it y of [place] 4.2.7.2.686 Neal as MÓNICA?BLEA [id number] [address] OFFICE [facility] 2022-06-21 2022-06-21 Orders Doctor EMETERIO 1.2.840.114 [id number] Univers 00:00:00 00:00:00 Only Unassigned, CHILO 350.1.13.10 ity of [place] [facility] 4.2.7.2.686 Neal as [id number] [address] 2022-06-17 2022-06-17 Telephone Jerrica [facility] 1.2.840.114 [id number] Univers 00:00:00 00:00:00 [facility] 350.1.13.10 it y of José Miguel [facility] 4.2.7.2.686 [place] as MÓNICA?BLEA [id number] Mo edison LOAIZA [address] [place] [address] OFFICE BUILDING 2022-06-16 2022-06-16 Office [facility] 1.2.840.114 [id number] Univers 11:30:00 11:45:00 Visit [facility] 350.1.13.10 i [place] [id number] [address] OFFICE BUILDING 2022-06-16 2022-06-16 Outpatient R LAWRENCE PETERSON [facility] 1 [id number] Univers 11:30:00 11:30:00 LAWRENCE PETERSON ity of [facility] 2022-06-16 2022-06-16 Telephone [facility] 1.2.379.764 [id number] Univers 00:00:00 00:00:00 [facility] 350.1.13.10 i ty of [place] [id number] [address] OFFICE BUILDING 2022-06-14 2022-06-14 Telephone [facility] 1.2.979.373 [id number] Univers 00:00:00 00:00:00 [facility] 350.1.13.10 i ty of [place] [id number] [address] OFFICE BUILDING 2022-06-08 2022-06-08 Telephone EMETERIO Pham 1.2.508.209 [id number] Univers 00:00:00 00:00:00 Becca BEARD 350.1.13.10 i ty of HOSPITAL 4.2.7.2.686 [place] as [id number] [facility] [address] 2022-06-08 2022-06-08 Transition BritniARTURO houghDimitri 1.2.840.114 [id number] Univers 00:00:00 00:00:00 of Care Elyssa Hillary BENNETT 350.1.13.10 i ty of [place] [id number] [facility] [address] 2022-05-26 2022-06-07 [facility] [id number] Univers 15:42:00 15:09:00 ALLAN ity of [facility] 2022-05-26 2022-06-07 Hospital Meche Zapata 1.2.840.1 14 [id number] Univers 15:42:00 15:09:00 Encounter Luis Huerta 350.1.13.10 ity of [facility] 4.2.7.2.686 Lance Swift [id number] Medical Allan Lynch [address] 2022-06-07 2022-06-07 Outpatient [facility] [id number] Univers 13:00:00 13:00:00 RENEE ity [facility] 2022-06-03 2022-06-03 Surgery TYE Peterson 1.2.840.114 [id number] Univers 07:00:00 09:33:00 Lawrence BEARD 350.1.13.10 i ty of [facility] 4.2.7.2.686 Neal as [id number] [facility] [address] 2022-06-02 2022-06-02 Telephone [facility] 1.2.007.750 [id number] Univers 00:00:00 00:00:00 Becca TORREZ 350.1.13.10 ity of [facility] 4.2.7.2.[place] [id number] [facility] [address] [facility] 2022-06-01 2022-06-01 [facility]phone [facility] 1.2.840.114 [id number] Univers 00:00:00 00:00:00 [facility] 350.1.13.10 it y of [place] 4.2.7.2.686 Neal as MÓNICA?BLEA [id number] Mo dical FADIA [address] MEDICAL OFFICE BUILDING 2022-05-30 2022-05-30 Surgery TYE Lynch 1.2.840.114 [id number] Univers 20:00:00 22:46:00 Allan CHILO 350.1.13.10 it y of [facility] 4.2.7.2.686 Neal as [id number] [facility] [address] 2022-05-29 2022-05-29 Surgery TYE Lynch 1.2.840.114 [id number] Univers 07:20:00 10:33:00 Allan CHILO 350.1.13.10 it y of [facility] 4.2.7.2.686 Neal as [id number] [facility] [address] 2022-05-26 2022-05-26 Outpatient R JERRICA [facility] [id number] Univers 09:45:00 09:45:00 ROBINA [facility] 2022-05-24 2022-05-24 Outpatient [facility] [id number] Univers 00:00:00 00:00:00 WOO [facility] 2022-05-24 2022-05-24 Prep For [facility] 1.2.840.114 [id number] Univers 00:00:00 00:00:00 Surgery [facility] 350.1.13.10 ity of [place] [id number] Mo dicletty DEEPA [address] [facility] 2022-05-23 2022-05-23 Emergency X IBRHIANNON, [facility] ERT [id number] Univers 16:40:00 18:12:00 FOLUSHO [facility] 2022-05-23 2022-05-23 Emergency X IBMONISHAUNOLIVIA, [facility] ERT [id number] Univers 16:40:00 18:12:00 [facility] 2022-05-23 Emergency [facility] 1.2.840.114 [id number] Univers 16:40:00 18:12:00 Iv[facility] 350.1.13.10 ity of [facility] [place].2.[place] [id number] [facility] [address] 2022-05-23 2022-05-23 Emergency [facility] 1.2.318.625 [id number] Univers 03:49:00 06:12:00 Herminio TORREZ 350.1.13.10 ity of [facility] 4.2.7.2.[place] [id number] [facility] [address] 2022-05-23 2022-05-23 Telephone [facility] 1.2.840.114 [id number] Univers 00:00:00 00:00:00 [facility] 350.1.13.10 it y of José Miguel [facility] 4.2.7.2.686 Neal as MÓNICA?BLEA [id number] Mo edison RAOEY [address] MEDICAL OFFICE [facility] 2022-05-19 2022-05-19 Outpatient R VERO [facility] [id number] Univers 09:30:00 10:37:[address] [facility] 2022-05-19 2022-05-19 Office [facility] 1.2.840.114 [id number] Univers 09:30:00 10:37:40 Visit Becca [facility] 350.1.13.10 ity of [facility] 4.2.7.2.686 [place] PROFESS[place] [id number] Mo edison ARENAS 188 [facility] 2022-05-19 2022-05-19 Orders Doctor ASHER 1.2.840.114 [id number] Univers 00:00:00 00:00:00 Only Unassigned, CHILO 350.1.13.10 ity of [place] [facility] 4.2.7.2.686 Neal as [id number] [facility] [address] 2022-05-17 2022-05-17 Outpatient R ROGER [facility] [id number] Univers 08:00:00 08:57:35 WOO ity [facility] 2022-05-17 2022-05-17 Orders Doctor ASHER 1.2.840.114 [id number] Univers 00:00:00 00:00:00 Only Unassigned, CHILO 350.1.13.10 ity of [place] [facility] 4.2.7.2.686 Neal as [id number] [address] 2022-05-16 2022-05-16 Orders Doctor EMETERIO 1.2.840.114 [id number] Univers 00:00:00 00:00:00 Only Unassigned, CHILO 350.1.13.10 ity of [place] [facility] 4.2.7.2.686 Neal as [id number] [address] 2022-05-05 2022-05-05 Outpatient [facility] [id number] Univers 10:00:00 10:00:00 ROBINA [facility] 2022-05-05 2022-05-05 Telephone [facility] 1.2.840.114 [id number] Univers 00:00:00 00:00:00 [facility] 350.1.13.10 it [facility] 4.2.7.2.686 Neal as MÓNICA?BLEA [phone] [address] MEDICAL OFFICE [facility] 2022-05-04 2022-05-04 Orders Doctor ASHER 1.2.840.114 [id number] [facility] 00:00:00 00:00:00 Only Unassigned, CHILO 350.1.13.10 [facility] 4.2.7.2.686 Neal as [phone] [address] 2022-05-03 2022-05-03 Office [facility] 1.2.840.114 [id number] Univers 09:45:00 10:15:[address] [facility] 350.1.13.10 it y of [place] 4.2.7.2.686 Neal as MÓNICA?BLEA [phone] [address] MEDICAL OFFICE BUILDING 2022-05-03 2022-05-03 Outpatient R [facility] [id number] Univers 09:45:00 09:45:00 ROBINA hooks [facility] 2022-04-22 2022-04-22 Orders Doctor EMETERIO 1.2.840.114 [id number] [employer] 00:00:00 00:00:00 Only Unassigned, CHILO 350.1.13.10 [facility] [place] HOSPITAL 4.2.7.2.686 Neal as [id number] [facility] [address] 2022-04-22 2022-04-22 Telephone [facility] 1.2.840.114 [id number] Univers 00:00:00 00:00:00 Strahil T [place] 350.1.13.10 ity [facility] [place] [phone] [address] 2022-04-13 2022-04-13 Office [facility] 1.2.233.758 [id number] [facility] 09:30:00 10:00:00 Visit Strahil T [place] 350.1.13.10 ity of [facility] 4.[place] [phone] [address] 2022-04-13 2022-04-13 Outpatient R DAWSON CHOUDHURY [facility] [id number] Univers 09:30:00 09:30:00 DAWSON CHOUDHURY ity of [facility] 2022-04-13 2022-04-13 Orders Doctor ASHER 1.2.840.114 [id number] Univers 00:00:00 00:00:00 Only Unassigned, CHILO 350.1.13.10 ity of [place] [facility] 4.2.7.2.686 [place] as [phone] [place] [address] [address] 2022-04-13 2022-04-13 Telephone [facility] 1.2.840.114 10 [id number] Univers 00:00:00 00:00:00 Strahil T MULTISPEC 350.1.13.10 ity of [place].2.[place] [id number] [address] DI[facility]ES [facility]INIC 2022-04-07 2022-04-07 Office Jerrica [facility] 1.2.840.114 [id number] Univers 10:30:00 11:02:[address] [facility] 350.1.13.10 it y of Edziyad TORREZ 4.2.7.2.686 Neal as MÓNICA?BLEA [id number] [address] MEDICAL OFFICE [facility] 2022-04-07 2022-04-07 Outpatient R [facility] [id number] Univers 10:30:00 10:30:00 ROBINA ity of [facility] 2022-04-06 2022-04-06 Telephone [facility] 1.2.840.114 [id number] Univers 00:00:00 00:00:00 [facility] 350.1.13.10 it y of [facility] 4.2.7.2.686 Neal as MÓNICA?BLEA [id number] [address] MEDICAL OFFICE [facility] 2022-04-02 2022-04-02 Pharmacist Critical Care 1, [facility] Sleep Lab Bed [facility] 1. 2.840.114 [id number] Univers 20:00:00 22:30:00 Visit Dawson Choudhury [place] 350.1.13. 10 ity of [place] [id number] [facility] [address] 2022-04-02 2022-04-02 Outpatient R DAWSON CHOUDHURY [facility] [id number] Univers 20:00:00 20:00:00 DAWSON CHOUDHURY ity of [facility] 2022-04-02 2022-04-02 Orders Doctor ASHER 1.2.840.114 [id number] Univers 00:00:00 00:00:00 Only Unassigned, CHILO 350.1.13.10 ity of [place] [facility] 4.2.7.2.686 Neal as [id number] [facility] [address] 2022-03-24 2022-03-24 [facility] Alphonse Manjarrez [facility] 1.2.840.114 10 [id number] Univers 08:01:23 23:59:00 Encounter SHAN 350.1.13.10 ity of [facility] 4.[place].7.2.[place] [id number] [facility] [address] 2022-03-242022-03-24 Outpatient R [facility] [id number] Univers 07:57:08 08:00:00 DELROY ity of [facility] 2022-03-24 2022-03-24 [facility] 1.2.840.114 [id number] Univers 07:57:08 08:00:00 Encounter Delroy TORREZ 350.1.13.10 ity of [place] [id number] [facility] [address] 2022-02-16 2022-02-16 Telephone [facility] 1.2.840.114 [id number] Univers 00:00:00 00:00:00 [facility] 350.1.13.10 it y of José Miguel [facility] 4.2.7.2.686 Neal as MÓNICA?BLEA [phone] [address] MEDICAL OFFICE BUILDING 2022-02-15 2022-02-15 Orders Doctor ASHER 1.2.840.114 [id number] Univers 00:00:00 00:00:00 Only Unassigned, CHILO 350.1.13.10 ity of [place] [facility] 4.2.7.2.686 Neal as [id number] [facility] [address] 2022-02-03 2022-02-03 Orders Doctor EMETERIO 1.2.840.114 [id number] Univers 00:00:00 00:00:00 Only Unassigned, CHILO 350.1.13.10 ity of [place] [facility] 4.2.7.2.686 Neal as [id number] [address] 2022-02-02 2022-02-02 Office [facility] 1.2.840.114 [id number] Univers 09:30:00 09:45:[address] [facility] 350.1.13.10 it y of José Miguel [facility] 4.2.7.2.686 [place] as MÓNICA?BLEA [id number] [address] MEDICAL OFFICE BUILDING 2022-02-02 2022-02-02 Outpatient R [facility] [id number] Univers 09:30:00 09:40:22 ROBINA ity of [place] [facility] 2022-01-17 2022-01-17 Orders Doctor ASHER 1.2.840.114 [id number] Univers 00:00:00 00:00:00 Only Unassigned, CHILO 350.1.13.10 ity of [place] [facility] 4.2.7.2.686 Neal as [id number] [address] 2022-01-03 2022-01-03 Office [facility] 1.2.840.114 [id number] Univers 09:15:00 09:30:[address] [facility] 350.1.13.10 it y of José Miguel [facility] 4.2.7.2.686 Neal as MÓNICA?BLEA [phone] Mo edison RAOEY [address] MEDICAL OFFICE BUILDING 2022-01-03 2022-01-03 Outpatient R JERRICA [facility] [id number] Univers 09:15:00 09:15:00 ROBINA [facility] 2021-12-08 2021-12-08 Office [facility] 1.2.904.855 [id number] Univers 10:20:00 10:40:00 Visit Dawson TORREZ 350.1.13.10 ity of [place].2.[place] [id number] Mo edison ARENAS 085 [facility] 2021-12-08 2021-12-08 Outpatient R MARYLIN CHOUDHURYL [facility] [id number] Univers 10:20:00 10:20:00 ATANASOV, BINUHIL ity of [facility] 2021-12-08 2021-12-08 Outpatient R [facility]ITAOV[facility] [id number] Univers 10:20:00 10:20:00 SARAOV, BINUHIL ity [facility] 2021-12-08 2021-12-08 Orders Doctor ASHER 1.2.840.114 [id number] Univers 00:00:00 00:00:00 Only Unassigned, CHILO 350.1.13.10 ity of [place] [facility] 4.2.7.2.686 Neal as [id number] [address] 2021-12-02 2021-12-02 Office Enmanuelanjum [facility] 1.2.840.114 [id number] Univers 11:00:00 11:15:00 Visit Robina [facility] 350.1.13.10 it y of José Miguel TORREZ 4.2.7.2.686 Neal as MÓNICA?BLEA [id number] Mo edison [address] MEDICAL OFFICE [facility] 2021-12-02 2021-12-02 Outpatient R JERRICA [facility] [id number] Univers 11:00:00 11:00:00 ROBINA [facility] 2021-11-25 2021-11-25 Outpatient R DAWSON CHOUDHURY [facility] [id number] Univers 20:00:00 20:00:00 DAWSON CHOUDHURY kirit [facility] 2021-11-22 2021-11-22 Outpatient R BINU CHOUDHURYTNHillary [facility] [id number] Univers 10:15:00 10:15:00 DAWSON CHOUDHURY [facility] 2021-11-04 2021-11-04 Pharmacist Critical Care [facility] Sleep Lab [facility] 1.2 .840.114 [id number] Univers 10:00:00 10:15:00 Visit Dawson Choudhury 350.1.13. 10 ity [facility] 4.2.7.2.686 [facility] [id number] [facility] [address] 2021-11-04 2021-11-04 Outpatient R DAWSON CHOUDHURY [facility] [id number] Univers 10:00:00 10:00:00 DAWSON CHOUDHURY [facility] 2021-11-04 2021-11-04 Orders Doctor ASHER 1.2.840.114 [id number] Univers 00:00:00 00:00:00 Only Unassigned, CHILO 350.1.13.10 ity of [facility] 4.2.7.2.686 Neal [id number] [facility] [address] 2021-11-02 2021-11-02 Outpatient R JERRICA [facility] [id number] Univers 09:30:00 10:02:11 ROBINA [facility] 2021-11-02 2021-11-02 Office [facility] 1.2.840.114 [id number] Univers 09:30:00 09:45:00 Visit Robina [facility] 350.1.13.10 it y of [place] 4.2.7.2.686 Neal as MÓNICA?BLEA [phone] [address] OFFICE [facility] 2021-11-02 2021-11-02 Telephone [facility] 1.2.840.114 [id number] Univers 00:00:00 00:00:00 Straorl Jeronimo MULTISPEC 350.1.13.10 ity of [place] COR[place] [id number] [facility] AND [address] DIABETES CLINIC 2021-10-07 2021-10-07 Telephone [facility] 1.2.840.114 [id number] [facility] 00:00:00 00:00:00 [facility] 350.1.13.10 it y of [place]ziy[place] 4.2.7.2.686 Neal as MÓNICA?BLEA [phone] [address] OFFICE [facility] 2021-10-05 2021-10-05 [facility] [id number] Univers 14:15:00 14:43:53 ROBINA [facility] 2021-10-05 2021-10-05 Office [facility] 1.2.840.114 [id number] Univers 14:15:00 14:30:[address] [facility] 350.1.13.10 it y of [place] 4.2.7.2.686 Neal as MÓNICA?BLEA [id number] [address] OFFICE BUILDING 2021-10-05 2021-10-05 Outpatient [facility] [id number] Univers 14:15:00 14:15:00 ROBINA [facility] 2021-09-22 2021-09-22 Office [facility] 1.2.168.039 [id number] Univers 13:40:00 14:00:00 Visit Dawson Decker [place] 350.1.13.10 ity [facility] [place].2.7.2.[place] R[place] [id number] Mo alpaletty ARENAS 085 [facility] 2021-09-22 2021-09-22 Outpatient R BINU CHOUDHURYTNHillary [facility] [id number] Univers 13:40:00 13:40:00 [facility] ity [facility] 2021-09-22 2021-09-22 Outpatient R MACEY [facility] [id number] Univers 13:40:00 13:40:00 [facility] ity [facility] 2021-09-21 2021-09-21 Letter EMETERIO Morales 1.2.840.114 [id number] Univers 00:00:00 00:00:00 (Out) Erma Decker [place] 350.1.13.10 it y of [facility] 4.2.7.2.686 Neal as [id number] [address] 2021-09-20 2021-09-20 Outpatient R [facility] [id number] Univers 15:00:00 15:33:41 MAGDALENE hooks o [facility] 2021-09-20 2021-09-20 [facility] 1.2.840. 114 [id number] Univers 15:00:00 15:33:41 [facility] 350.1.13.10 ity [facility] 4.2.7.2.686 Neal as MÓNICA?BLEA [id number] Mo edison EY [address] MEDICAL OFFICE BUILDING 2021-09-20 2021-09-20 Outpatient R [facility] [id number] Univers 15:00:00 15:33:41 MAGDALENE hooks o f [facility] 2021-09-15 2021-09-15 Outpatient R [facility] [id number] Univers 11:15:00 11:37:11 ROBINA hooks [facility] 2021-09-15 2021-09-15 Office [facility] 1.2.840.114 [id number] Univers 11:15:00 11:30:[address] [facility] 350.1.13.10 it y of Edziyad [place] 4.2.7.2.686 Neal as MÓNICA?BLEA [phone] Mo [address] MEDICAL OFFICE [facility] 2021-09-15 2021-09-15 Outpatient R JERRICA [facility] [id number] Univers 11:15:00 11:15:00 ROBINA [facility] 2021-06-30 2021-06-30 Orders Doctor EMETERIO 1.2.840.114 [id number] Univers 00:00:00 00:00:00 Only Unassigned, CHILO 350.1.13.10 ity of [place] [facility] 4.2.7.2.686 Neal as [id number] [facility] [address] 2021-05-24 2021-05-24 [place] [facility] 1.2.840.114 [id number] Univers 00:00:00 00:00:00 [facility] 350.1.13.10 it y of José Miguel [facility] 4.2.7.2.686 Neal as MÓNICA?BLEA [phone] Mo edison [address] MEDICAL OFFICE [facility] 2021-05-11 2021-05-11 Outpatient Zeke BECERRIL [facility] [id number] Univers 11:45:00 11:45:00 ROBINA [facility] 2021-03-31 2021-04-02 Emergency X SYD [facility] ERT [id number] Univers 09:05:00 07:46:00 HERMINIO ity [facility] 2021-03-31 2021-04-02 Emergency Ladonna Bryant [facility] 1.2.8 40.114 [id number] Univers 09:05:00 07:46:00 Herminio Corbin DWAYNEDAVIDE 350.1.13.10 ity of [place]2.[place] [id number] [facility] [address] 2020-12-21 2020-12-21 Emergency X ROSETTA [facility] ERT [id number] Univers 12:12:00 16:04:00 MAKAYLA hooks [facility] 2020-12-21 2020-12-21 Emergency [facility] 1.2.062.873 [id number] Univers 12:12:00 16:04:00 Makaylareece RICEDAVIDE 350.1.13.10 i ty of [facility] 4.2.7.2.686 [facility] [phone] [address] 2020-12-10 2020-12-10 Outpatient R [facility] [id number] Univers 09:00:00 09:00:00 ROBINA [facility] 2020-12-08 2020-12-08 [facility] 1.2.544.661 [id number] Univers 05:45:00 08:15:00 Herminio [place] 350.1.13.10 ity [place] 4.2.7.2.686 [facility] [id number] [address] 2020-12-08 2020-12-08 Emergency X [facility] ERT [id number] Univers 05:45:00 08:15:00 HERMINIO y [facility] 2020-11-10 2020-11-10 Outpatient [facility] [id number] Univers 13:10:00 13:10:00 jessee [facility] 2020-11-10 2020-11-10 Outpatient Zeke [facility]IL[facility] [id number] Univers 09:30:00 10:05:31 ROBINA [facility] 2020-11-10 2020-11-10 Office [facility] 1.2.840.114 [id number] Univers 09:22:11 09:52:11 Visit [facility] 350.1.13.10 it y of José [place] 4.2.7.2.686 Neal as Mónica?Blea [phone] Mo edison [address] Medical Office Building 2020-09-19 2020-09-19 Outpatient YVON_URSULA [facility] [phone] [place] 03:24:00 03:24:00 E__ [address]2863 Medica l Group 2020-09-04 2020-09-04 Orders Doctor ASHER 1.2.840.114 [id number] Univers 00:00:00 00:00:00 Only Unassigned, CHILO 350.1.13.10 ity of [place] [facility] 4.2.7.2.686 Neal as [id number] [facility] [address] 2020-08-22 2020-08-22 Outpatient [facility] 456 [place] 05:19:00 05:19:00 URIEL_ [id number] Medica l Group 2020-08-17 2020-08-17 Outpatient Zeke LOPEZ [facility] [id number] [facility] 09:00:00 09:00:00 WONDIFUL ity o f [facility] 2020-08-06 2020-08-07 [facility] Edgard Leo 1.2.840.1 14 [id number] Univers 13:41:00 23:00:00 Encounter Magali Curtis Chilo 350.1.13.10 ity of [facility] 4.2.7.2.68 Neal as [id number] [facility] [address] 2020-08-03 2020-08-05 Emergency Patricia Lion 1.2.840. 114 [id number] Univers 08:54:00 16:11:00 Allen Maravilla 350.1.13.10 [facility]y [facility] 4.2.7.2 .686 [place] [id number] [facility] [address] 2020-07-31 2020-07-31 [facility] 1.2.840.114 [id number] Univers 08:39:00 14:39:00 Ladonna Torrez 350.1.13.10 ity [facility] 4.2.7.2.686 [facility] [id number] [facility] [address] 2020-07-25 2020-07-25 Outpatient ELYSSA [facility] 456 [place] 06:29:00 06:29:00 ECHASE_ [id number] Medica l Group 2020-07-24 2020-07-24 Outpatient [facility] 456 [place] 11:00:00 11:00:00 URIEL_ [id number] Medica l Group 2020-06-08 2020-06-08 Emergency Gary, [facility] 1.2.139.286 [id number] Univers 13:48:00 17:01:00 Patricia Torrez 350.1.13.10 i ty of [place].2.[place] [id number] [facility] [address] 2020-01-28 2020-01-28 Outpatient JAM, [facility] [id number] [place] 00:00:00 00:00:00 [facility] 2020-01-20 2020-01-20 Outpatient EGBULEFU, [facility] [id number] [place] 11:36:00 16:26:[address] [facility] 2019-10-29 2019-10-31 Inpatient NALCREST, [facility] 089 [id number] 24 [place] 00:00:00 00:00:00 YASMINE 164 Mo thodi 2019-03-12 2019-03-12 Hospital Sergio, [facility] 1.2.840.114 [id number] Univers 14:43:00 23:59:00 Encounter [facility] 350.1.13.10 it[place] [id number] [facility] [address] 2019-03-11 2019-03-12 Hospital Sergio [facility] 1.2.840.114 [id number] Univers 15:17:00 17:21:00 Encounter [facility] 350.1.13.10 ity [place] [id number] [facility] [address] 2019-03-11 2019-03-12 Office Surgery, Td General [facility] 1.2.8 40.114 [id number] Univers 09:09:17 08:54:29 [facility] 350.1.13.10 ity of [place] 4.2.7.2.686 [place] [id number] [facility] [address] 2018-10-31 2018-10-31 Office Surgery, Td Vascular [facility] 1.2. 840.114 [id number] Univers 08:41:29 09:11:29 Visit Ramana Padron [facility] 350.1.13.10 ity [place].2.686 [place] [id number] [place] [address] [address] 2014-07-22 2014-07-22 [facility] [id number] Memoria 17:51:00 21:57:00 Emergency r [place] 00 l [facility] 2014-07-22 2014-07-22 [facility] [id number] Memoria 17:51:00 21:57:00 Emergency r [place] 00 l [facility] 2014-07-22 2014-07-22 Outpatient Griffin, 2.16.840. 2.16.840.1 . [id number] 12:51:00 16:57:00 Christy 1.418885. 447347.3.61 00 Radhika 3.615.0.1 5.0.101 01 Results Test Description Test Time Test Comments Results Result Sourc e Comments RAD, CHEST, 1 2022-06-15 Post-intubationReason VIEW, NON DEPT 0 for 13:01:00 exam:->encephalopathy , r/o [facility] - aspirationShould this [facility] be performed at the EKVIN KAYE bedside?->Yes : 1960 Sex: M FINAL [...] (BEAKER) (test 3.000 <0.400 H code = 5221) 4T TOTAL SCORE (BEAKER) (test code 3 = 1536) BASIC METABOLIC [id number] 09:21:22 Test Item Value Reference Range Interpretation [...] not appl icable for dialysis patien ts Dry Talc Racker ID - [id number] 07:01:03 Test Item Value Reference Range Interpretation Comments PHOSPHORUS (BEAKER) (test code = 3.1 mg/dL 2.3-4.7 604) Dry Talc Racker ID - PABLITO WHEPATIC FUNCTION [id number] 07:01:02 Test Item Value Reference Range Interpretation [...] (test code = 21 U/L 6-55 347) Dry Talc Racker ID Marquis KENNEY [id number] 07:01:02 Test Item Value Reference Range Interpretation Comments MAGNESIUM (BEAKER) (test code = 2.5 mg/dL 1.6-2.6 627) Dry Talc Racker ID Marquis KENNEY WB-TYPE NATRIURETIC FACTOR (BNP)2022-07-12 06:45:03 Test Item Value Reference Range Interpretation Comments B-TYPE NATRIURETIC PEPTIDE (ALMAAKER) 33 pg/mL 0-100 (test code = 700) Dry Talc Racker ID Marquis KENNEY [id number] 06:38:12 Test Item Value Reference Range Interpretation [...] of thrombosis is within 95-100% range. PROTHROMBIN TIME/[id number] 06:28:19 Test Item Value Reference Range Interpretation Comments PROTIME (BEAKER) (test code = 13.9 seconds 11.9-14.2 759) INR (BEAKER) (test code = 370) 1.09 <=5.90 RECOMMENDED COUMADIN/WARFARIN INR THERAPY RANGESSTANDARD DOSE: 2.0 - 3.0 Includes: PROPHYLAXIS for venous thrombosis, systemic embolization; TREATMENT for venous thrombosis and/or pulmonary embolus.HIGH RISK: Target INR is 2.5-3.5 for patients with mechanical heart valves.POCT-GLUCOSE [id number] 06:10:03 Test Item Value Reference Range Interpretation Comments POC-GLUCOSE METER 97 mg/dL 70-110 : TESTED Jose Raul Decker [facility] 6720 (PIO) (test code = CHRISTAL ENG [place], 1538) 53809: Dry Talc Racker/Techni santosh ID = [id number] for Jackie Sousa COMP. METABOLIC PANEL (10050)2022-07-11 11:58:27 Test Item Value Reference Range Interpretation Comments NA (test code = 138 mmol/L 135-145 6296686925) K (test code = 4.5 mmol/L 3.5-5.0 Slight hemoly sis 8828299721) CL (test code = 101 mmol/L 98-108 0700706702) CO2 TOTAL (test 23 mmol/L 23-31 code = 9540754442) AGAP (test code = 14 2-16 8973892397) BUN (test code = 14 mg/dL 7-23 Slight hemo lysis 1443291741) GLUCOSE (test code 94 mg/dL 70-110 = 7221913155) CREATININE (test 0.67 mg/dL 0.60-1.25 code = 1447829462) TOTAL BILI (test 0.6 mg/dL 0.1-1.1 code = 0502084895) CALCIUM (test code 9.0 mg/dL 8.6-10.6 = 3992088354) T PROTEIN (test 7.2 g/dL 6.3-8.2 code = 6007521504) ALBUMIN (test code 4.5 g/dL 3.5-5.0 = 5706528562) ALK PHOS (test 88 U/L 34-122 Slight hemoly sis code = 0278274661) ALTv (test code = 31 U/L 5-50 1742-6) AST(SGOT) (test 40 U/L 13-40 Slight hemol ysis code = 2801301112) eGFR (test code = 121.4 mL/min/1.73m2 5128601510) DEWAYNE (test code = Association of DEWAYNE) [...] or urine or abnormalities in imaging tests). [facility] WITH [id number] 11:18:00 Test Item Value Reference Range Interpretation Comments WBC (test code = 7.15 See_Comment [Automated 2334-2) message] The sy stem which generated this result transmitted reference range : 4.20 - 10.70 10*3/?L. The reference range was not used to interpret this result as normal/abnormal . RBC (test code = 3.45 See_Comment L [Automated 743-8) message] The sy stem which generated this [...] (test code = 53.9 fL 38.5-51.6 H 01970-4) RDW-CV (test code = 17.2 % 12.1-15.4 H 788-0) PLT (test code = 400 See_Comment H [Automated 777-3) message] The sy stem which generated this result transmitted reference range : 150 - 328 10*3/ ?L. The reference r mitra was not used to interpret this result as normal/abnormal . MPV (test code = 8.8 fL 9.8-13.0 L 60837-3) NRBC/100 WBC (test 0.0 See_Comment [Automat ed code = 2273716975) message] The system which generated this result transmitted reference range : 0.0 - 10.0 /100 WBCs. The refer ence range was not u sed to interpret th is result as normal/abnormal . NRBC x10^3 (test code See_Comment [Auto mated = [id number]) message] The s ystem which generated this result transmitted reference range : 10*3/?L. The reference range was not used to interpret this result as normal/abnormal . GRAN MAT (NEUT) % 71.5 % (test code = 770-8) IMM GRAN % (test code 0.40 % = 6900311629) LYMPH % (test code = 17.6 % 736-9) MONO % (test code = 7.4 % 5905-5) EOS % (test code = 1.8 % 713-8) BASO % (test code = 1.3 % 706-2) GRAN MAT x10^3(ANC) 5.11 10*3/uL 1.99-6.95 (test code = 1095340081) IMM GRAN x10^3 (test 0.03 10*3/uL 0.00-0.06 code = 9245128059) LYMPH x10^3 (test code 1.26 10*3/uL 1.09-3.23 = 731-0) MONO x10^3 (test code 0.53 10*3/uL 0.36-1.02 = 742-7) EOS x10^3 (test code = 0.13 10*3/uL 0.06-0.53 711-2) BASO x10^3 (test code 0.09 10*3/uL 0.01-0.09 = 704-7) Lab Interpretation Abnormal (test code = 99688-8) [facility]00 Test Item Value Reference Range Interpretation Comments POCT GLU (test code = 5155437270) 95 mg/dL 70-110 Lab Interpretation (test code = Normal 12199-0) [facility]. METABOLIC PANEL (14588)2022-07-05 13:14:57 Test Item Value Reference Range Interpretation Comments NA (test code = 137 mmol/L 135-145 3065810081) K (test code = 4.2 mmol/L 3.5-5.0 5162600432) CL (test code = 100 mmol/L 98-108 0033530017) CO2 TOTAL (test code = 24 mmol/L 23-31 6683070059) AGAP (test code = 13 2-16 2316318885) BUN (test code = 11 mg/dL 7-23 2719306782) GLUCOSE (test code = 124 mg/dL 70-110 H 7161174405) CREATININE (test code = 0.81 mg/dL 0.60-1.25 1896992997) TOTAL BILI (test code = 0.6 mg/dL 0.1-1.8 5458177675) CALCIUM (test code = 9.1 mg/dL 8.6-10.6 4093891627) T PROTEIN (test code = 7.0 g/dL 6.3-8.2 [id number]) ALBUMIN (test code = 4.3 g/dL 3.5-5.0 9935007908) ALK PHOS (test code = 103 U/L 34-122 1965348783) ALTv (test code = 28 U/L 5-50 1742-6) AST(SGOT) (test code = 39 U/L 13-40 1079366600) eGFR (test code = 97.5 mL/min/1.73m2 1284568878) DEWAYNE (test code = DEWAYNE) Association of [...] tests). Lab Interpretation Abnormal (test code = 24065-4) [id number] 12:25:35 Test Item Value Reference Range Interpretation Comments NT-proBNP (test code = 523 pg/mL <=125 H 7078632700) DEWAYNE (test code = DEWAYNE) Biotin has been reported to cause a negative bias, interpret results relative to patient's use of biotin. Lab Interpretation (test Abnormal code = 08047-5) [facility] [id number] 12:25:35 Test Item Value Reference Range Interpretation Comments TROPONIN I (test code = 0.009 ng/mL <=0.034 8907368818) DEWAYNE (test code = DEWAYNE) Reference (Normal) [...] biotin. Lab Interpretation Normal (test code = 28424-4) [facility] WITH [id number] 12:01:31 Test Item Value Reference Range Interpretation [...] (test code = 52.8 fL 38.5-51.6 H 88994-6) RDW-CV (test code = 16.1 % 12.1-15.4 H 788-0) PLT (test code = 436 See_Comment H [Automated 777-3) message] The sy stem which generated this result transmitted reference range : 150 - 328 10*3/ ?L. The reference r mitra was not used to interpret this result as normal/abnormal . MPV (test code = 8.9 fL 9.8-13.0 L 34670-2) NRBC/100 WBC (test 0.3 See_Comment [Automat ed code = 4206935601) message] The system which generated this result transmitted reference range : 0.0 - 10.0 /100 WBCs. The refer ence range was not u sed to interpret th is result as normal/abnormal . NRBC x10^3 (test code 0.02 See_Comment [Auto mated = [id number]) message] The s ystem which generated this result transmitted reference range : 10*3/?L. The reference range was not used to interpret this result as normal/abnormal . GRAN MAT (NEUT) % 69.0 % (test code = 770-8) IMM GRAN % (test code 0.40 % = 5619005022) LYMPH % (test code = 16.1 % 736-9) MONO % (test code = 12.7 % 5905-5) EOS % (test code = 0.8 % 713-8) BASO % (test code = 1.0 % 706-2) GRAN MAT x10^3(ANC) 4.89 10*3/uL 1.99-6.95 (test code = 6512203151) IMM GRAN x10^3 (test 0.03 10*3/uL 0.00-0.06 code = 6577752344) LYMPH x10^3 (test code 1.14 10*3/uL 1.09-3.23 = 731-0) MONO x10^3 (test code 0.90 10*3/uL 0.36-1.02 = 742-7) EOS x10^3 (test code = 0.06 10*3/uL 0.06-0.53 711-2) BASO x10^3 (test code 0.07 10*3/uL 0.01-0.09 = 704-7) Lab Interpretation Abnormal (test code = 29352-4) [facility] RELEASE [id number] 14:13:16 Test Item Value Reference Range Interpretation Comments SCAN RESULT (test code = 0062762) UFH LOW DOSE 0.1 (2) See sca nned report. (BEAKER) (test code = 2593) See scanned reportU/S, RENAL, [id number] 17:23:00Reason for exam:->hydronephrosis [facility] : 1960 Sex: MFINAL REPORT [...] void residual urinary bladder volume Signed: [facility] Verified Date/Time: 06/23/2022 17:23:41 CBC W/PLT COUNT & AUTO [id number] 05:58:22 Test Item Value Reference Range Interpretation [...] (BEAKER) (test code = 2801) U/S, ABDOMINAL, [id number] 16:48:00Abdomen limited area? Add comment if clarification is needed.->Right upper quadrantReason for exam:->elevated Tbili - please evaluate [facility] : 1960 Sex: MFINAL REPORT [...] right upper quadrant ultrasound. Signed: Jm Baeza [facility] Verified Date/Time: 6:48:01 SERUM [id number] 16:04:04 Test Item Value Reference Range Interpretation Comments IMMUNOGLOBULIN A (IGA) 146 mg/dL 63-484 ([employer]) (test code = 639) IMMUNOGLOBULIN G (IGG) 704 mg/dL 540-1822 ([employer]) (test code = 427) IMMUNOGLOBULIN M (IGM) 72 mg/dL 22-293 (NVISION MEDICALAKER) (test code = 638) SERUM IT ID [id number](NVISION MEDICALAKER) No monoclonal (test code = 3817) protein detected. [facility]-PATHOLOGIST-"[id number] Kareenallaurie Lawler " ([facility]) (test code = M.DMinda 3801) Clinical Horticulture Supervisor - SFOperator ID - ADMINPROTEIN ELECTROPHORESIS, SERUM WITH REFLEX TO [id number] 16:03:41 Test Item Value Reference Range Interpretation [...] (test code = increased. 2615) Non-specific change. [id number] [facility] Gonzalezkobe, (BEAKER) (test code = M.D. 2616) PROTEIN TOTAL SERUM, 6.6 gm/dL 6.0-8.3 SPEP (BEAKER) (test code = 2660) Clinical Horticulture Supervisor - SFOperator ID - ADMINOperator ID - ADMHEPARIN ANTIBODY 2022-06-22 12:12:51 Test Item Value Reference Range Interpretation Comments HEPARIN ANTIBODY Positive-See Serotonin Negative A (BEAKER) (test code = Release Assay for 646) Confirmation HEPARIN ANTIBODY OD 3.000 <0.400 H (BEAKER) (test code = 2659) 4T TOTAL SCORE 5 (BEAKER) (test code = 2661) [id number] 05:50:16 Test Item Value Reference Range Interpretation Comments HAPTOGLOBIN (BEAKER) (test code = 308 mg/dL 14-258 H 366) Dry Talc Racker ID - ADMINOperator ID - ADMINVITAMIN [id number] 05:20:33 Test Item Value Reference Range Interpretation Comments VITAMIN B12 (BEAKER) (test code = 359 pg/mL 213-816 774) Dry Talc Racker ID - [id number] 05:20:33 Test Item Value Reference Range Interpretation Comments FERRITIN (BEAKER) (test code = 415.83 ng/mL 5.00-275.00 H 361) Dry Talc Racker ID - DOMINIQUE, TIBC, % SAT. (WITHOUT FERRITIN)2022-06-22 04:59:45 Test Item Value Reference Range Interpretation Comments IRON (BEAKER) (test code = 547) 38.0 ug/dL 40.0-160.0 L TOTAL IRON BINDING CAPACITY 311 ug/dL 250-450 (BEAKER) (test code = 769) IRON % SATURATION (2) (BEAKER) 12 % 20-55 L (test code = 2590) Dry Talc Racker ID - MARCORETICULOCYTE [id number] 04:53:40 Test Item Value Reference Range Interpretation Comments RETICULOCYTE COUNT PCT (BEAKER) (test 5.7 % 0.5-1.8 H code = 575) Dry Talc Racker ID - 6000CBC W/PLT COUNT & AUTO [id number] 04:53:36 Test Item Value Reference Range Interpretation [...] (BEAKER) (test code = 2801) HEPATIC FUNCTION [id number] 04:48:30 Test Item Value Reference Range Interpretation [...] (test code = 19 U/L 6-55 347) Dry Talc Racker ID - ADMINLACTATE DEHYDROGENASE (LDH)2022-06-22 04:48:30 Test Item Value Reference Range Interpretation Comments LACTATE DEHYDROGENASE (BEAKER) (test 271 U/L 125-220 H code = 635) Dry Talc Racker ID - ADMINBASIC METABOLIC [id number] 04:48:29 Test Item Value Reference Range Interpretation [...] not appl icable for dialysis patien ts Dry Talc Racker ID - [id number] 04:48:29 Test Item Value Reference Range Interpretation Comments MAGNESIUM (BEAKER) (test code = 2.2 mg/dL 1.6-2.6 627) Dry Talc Racker ID - ADMINCOMPREHENSIVE METABOLIC [id number] 13:27:13 Test Item Value Reference Range Interpretation [...] not appl icable for dialysis patien ts Dry Talc Racker ID - JSCBC W/PLT COUNT & AUTO [id number] 13:14:04 Test Item Value Reference Range Interpretation [...] PERCENT (BEAKER) (test code = 2801) PROTHROMBIN TIME/[id number] 13:13:03 Test Item Value Reference Range Interpretation [...] SARS-Co V-2 (test code = target nucleic 83594-7) acids are not detected in thi s [...] rapid, real-nga e RT-PCR test intended for e qualitative [...] revoked sooner. Fact Sheet for Healthcare Providers: https://www.siOPTICA/Documents/Xp ert%20Xpress%20SAR S%20CoV-2/Fact%20S heets/302-3802%20S ARS-COV-2%20HEALTH CARE%20PROVIDERS%2 0FACT%20SHEET.pdf Fact Sheet for Healthcare Patients: https://www.siOPTICA/Documents/Xp ert%20Xpress%20SAR S%20CoV-2/Fact%20S heets/302-3801%20S ARS-COV-2%20PATIEN T%20FACT%20SHEET.p df Lab Interpretation Normal (test code = 83876-8) [facility])2022-06-21 13:03:14 Test Item Value Reference Interpretation Comments Range SARS-COV2/RT-PCR Negative Negative The SARS-Co V-2 (test code = target nucleic 08490-2) acids are not detected in thi s [...] rapid, real-nga e RT-PCR test intended for e qualitative [...] revoked sooner. Fact Sheet for Healthcare Providers: https://www.si[employer]/Documents/Xp ert%20Xpress%20SAR S%20CoV-2/Fact%20S heets/302-3802%20S ARS-COV-2%20HEALTH CARE%20PROVIDERS%2 0FACT%20SHEET.pdf Fact Sheet for Healthcare Patients: https://www.si[employer]/Documents/Xp ert%20Xpress%20SAR S%20CoV-2/Fact%20S heets/302-3801%20S ARS-COV-2%20PATIEN T%20FACT%20SHEET.p df Lab Interpretation Normal (test code = 79997-1) [facility])2022-06-21 13:03:14 Test Item Value Reference Range Interpretation Comments SARS-COV2/RT-PCR Negative Negative The SARS-Co V-2 target (test code = nucleic acids a re not 5194961) detected in thi s specimen. Negative result [...] individuals suspected of CO VID-19 [facility]. This test has been [...] revoked sooner. Fact Sheet for Healthcare Providers: https://www.TextureMedia m/Documents/Xpert%20Xpress%20SARS%20CoV-2/Fact%20Sheets/302-3802%53HIIZ-TVN-4%20 HEALTHCARE%20PROVIDERS%20FACT%20SHEET.pdf Fact Sheet for Healthcare Patients: https://www.[employer] Solutions/Documents/Xpert%20Xp ress%20SARS%20CoV-2/Fact%20Sheets/302-3801%42AHUY-AWB-6%20PATIENT%20FACT%20SHEET .pdfSURGICAL PATHOLOGY [id number] 19:37:37 Test Item Value Reference Range Interpretation Comments Case Report (test code Surgical Pathology ? ? = [id number]) ?Case: [id number] ? Authorizing Provider: ?Lawrence Peterson MD ?Collected: ? 06/03/2022 1042 ?Ordering Location: ? ? [facility] OR ? Received: ?06/03/2022 1154 ? Department ? Pathologist: ? Tatyana Monroe, ? MD PhD ? Specimen: ? ?OTHER, IVC FOREIGN BODY ? Final Diagnosis (test b5rypOCeONFgo2ryKUYkeA code = 7779635397) FuZzEwMzNcZnRuYmpcdWMx IHtccnRmMVxlcGljMTAyMD OzYK9euZmvmNc4pVgrFRHw qcJ6cYMoGYuss2muSPT4e9 lmhotaRTLsKYbcJq5ekCWs zTvaMfYrKGYoAId4yM58DE QxsG2bxKVmXEd5PRFixZQn goJyWpItXLDilAAbqRB9QG KdIR0ckmadVNwcQVmuJDMx usY9ZHWnyFItR4MlRRVrNM 6jnwzzYWT7JAqoNVCwFHG9 LmWuFJDbd5Rbibk2WyWmeK FyZFxwbGFpblxmczIwXHBh ciBBLiBIRUFSVCwgUkVNT1 ZBTCBPRiBJTkZFUklPUiBW VY4LWKWWVrDeFs9BDHyLOf RYV7GMVoBwmOEpHWOqAFEh CO5ETNHBMJpCLX6GDStHFM jcBLHUNKLMHJWFQvDGE1OM JuPpI6zLBUMOEdNOXomNQk CTDY7WGRQTMiZkTjsOGOCI JVwrWTAcNFPeVXUhN8Pex2 IrWOebcFldFGMpc25fa90j pBhnt5MvVMlae9UtISNgt9 RaqBI3wJ1hQL0wVISurnSk IRXbKTUQHJSsY14BMEXHRO 6oqSLuaDexybCrUKile8Yz H4OaDyRwMQfowtNgJQYiHh draeefUEPtEIK4jsMrXKYu NXfjDUQvWEdwHp5iyTVgoP agLbAvCHUjq7xhieNXSFhv BnMoA578HVIbJXgil4pyx6 PlEMKjbEWrp1H0JIJMhesw yPk7c8lqUiVkRzQ7eARdNH vgC5vmnwTwiWNeM7VyhEWf pCb3nMkvZ76wu2K5ZuplY6 poXICfAVHdM6OiFZ9pDXNp Ufa5AEH1BWY5VUHgRNOfY6 YqBE6jPKKfyFVpQSw8q6mt jRuvUBAyKVL4f5rdXMotur F8AE9ltg2phIp2m7cuysJg PVYeHZQvaHYCFHCcP2TwtX ssBu4tsPo1tKvsOrynKCJ3 Gkl1YC5plm44eoz1oLqlAW NupqtgKpH6DOmyRKPwohgl EQy3IRneALAghCT8UHSxwO FuM9SjZXRiCY1waro2SJX0 SRlpGQVdJxJ7ZQJggDFvQN RzwUoeXPgyh135ITH6XbGp ZS5wD1Wxr6M3nE4rsAYmQL AroHBsEzJsRUYroz7hpUZf JYppq6TzAKU9kmD1fMKicV XzYXOrTY46Qzuha2GaJwdd DAX1FZCgzxOrw5Biy6ajQd OnfuXfU3ykE8HbEXSoEPTe RMJiJzKvswRff3Rmm8NahY PtpCl9i4jcJNFcEVOctXxw l7obUBR0VIDfR6Z0iKPfp8 fgURywDZCnbAK6uaT4AGLg mTNzY3LrlQ0kXMExLZ7trh r7d9fnBIS7TZhcPRScYwA0 jnK7RWXuiUEoRJHkvOkhHE vam002MIZ3DfDpDTCfb5Sz R5YxxObsI77uvGtwE45iIP DjuOtwwE3rdSmijS7mDwMl ZnMyNFxxbFxwbGFpblxmMV xmczIwXGxhbmcxMDMzXGhp X1xbUzEjBCWupTbhGBktg4 NoXGYxXGNmMlxmczIwXHBh quXYOKywxzNoxXXwm52eXH xseSByZXZpZXdlZCBhbGwg e2MpT7jcFZ8iF0OafCXkwg DkcbUsVOumTIMmo5d4rXHv iWanx0MoaXIvFN71hmQwBE EfTKQ4QZGoe0xbQV13esne CiSekX24cgYwdvNgKNQtg6 thU8fshZHfw0Fxg7GwoaIk BKjex8VbOR5zuAQthyjkrF I0TVPlfFSbqtGhbeU7wZwv OBBxsS8ikX6reDrgxK9tKu XxIcTzEWekMK6rUWSsA6vu sCUaQVVdEAHoM1bjGuWbnJ 2xcDmkEyoinnW1OPQyqq34 Final Diagnosis Comment p9hnhBKkVFHrpVAwUKIuWx (test code = pzooNbYJGbuBYsF7Aybgiw 7123250346) NXrbLF8kLD6wiFdmkHNmyK IjWYKkBwEsn9ias640vFNq f6ukIHEUegoawRm5jKtzF8 7ke1I4GmdpS3xvCPN3YEaq kqZamqThGXLdrZX6WXeood CwZkB8URglEIWbHvN1AWDy eLXgCYY9oXkaQMGrufbzGt D6OJjpDMQlqbboZZb6CQwd VPFmjPN7EEQnfWGmD2EgXN TrIW5hkos7ALP8WRssXPGy RrI2ZOZahJVqNBRgeMlfGH lmc261ZTT4CoXiWUHhzgMm oKpadJ2cGfQkXWcvIrWlM4 hjYnBhdDJccGFyIFRoZSBh Xv04ADCvdTEdeE1mkpQycB T2LNFqDDBvJBX5AgccK8Fs LKV5paVooh7umsClgEAebE 0cwDkjerPoziy3ETJ2kMUn CXZmdbQpvnCes3F9LLZgd3 F5EQRiz8EamPmkig5tU78z kCUxZTYjeYDevAxuky0yTZ YgdGhlIHNwZWNpbWVuIGlz WZ2nFMAmKMVqp4Hnr8NcYE IdtyEay35iujvxvJtgYGDm WLGrgiHoY2JmhFyhYRLmq2 DzgYU9aN2ws5vpk5SiPZAq cn0= Clinical Information Acute deep vein (test code = thrombosis (DVT) of 6730786565) iliac vein of both lower extremities [I82.423] Gross Description (test y3nmkFPmFOOorUAjTIFqFf code = 9557611344) kjqaXtSMKrhBRlR7Opphbn QAnmON7xWZ5dhRjraLRvgA TgHAHmGwLis0iai567mMSt e0tbTVDYafrsxSl0fRguV4 3io7M4FsouL06zuMDcUZL8 AODfAJLgeOPuXTSiBPY5RA MocDOlG3pbWSCrJC3soedf EZgkPHonMZVqmKA5ZQObfT ZkJ9ChGIZuOSgkQKOtjll7 PuDhAl7daBJvtXaoIKkyHi rxrJqre2JdiYFlUZheETUy MKEcFBxdXMIbV9WWXQWbCz o5SSNtTAYhDzXZSBD4DkQ9 DABaJGBZEZCkETbqKOE5De kyIiBMUlIgODAwMDAwMDAw ITRoHB7rQNdkeRUnIIrdOg isBWckB791EAyvWDVmW8Or L6ClOOsqJDX6TRXrBmSpRM IpZG3QVkEkEPK7HGFeTgQb EYh7EDs6WL9QChZvNUKgFl Z3FrZhPJRkIIf6LBudLQ7T UBA3HYUxLso8ITecHJS0VM FcMXd5MNGnSXafucErHHej DhjzEMseL54zoHAeBZqjjP FpblxmczIwIFNQRUNJTUVO ADOurSIcXVJbjlUsq1JoQE qbkZreCFGsHxItkSdqxC4i EpWgQINNwGJcvZ6effEFXK fpTFViG3DtjsGyPOQoIOCi IGxhYmVsbGVkIHdpdGggdG liFWFvvVytmcUwS9Z2ubFf US2iLZWMOCCzpG6bSAApNO XeIRKQYRKilcOkX21gIv1v aIoeLmPgW6Z5KAVeNWYrq3 7dgAN3lcAqQxMeIX8byMPo sRemBT87pYNdaDVossknJU FaSUNcY3OkTPJpjivuXQSt IM25TQcvAh7dPMpbNA13FJ IpSDudC4Yfu0QcyJLso60n iMJ7EY12EBpbuQlzBL7cpI 7yQRHoq0XwmmCuKLRyJOIk TVGyfPGntw1oZGljl2XhWA 6rJEerROruqAkygM0tacGm iPCuVVVxPXYtl2ObIfEFnQ Nqd7VuZ8azGJ9lyIMkOi9q CMdxf5PuGHM0TC1tamZ1bM 7jTH4dyKcbLAsgADJciYEg ZFxmczIyXHBhclxzYTMwXG DcbJSSi2UhGHWVoWggFBUK F6nqpTUxFJzpOLYJYNcWZ4 PWFSpcRDTgI5MnE1EwuwL0 k3cizKaqo3NiySMgFS6owF FyfQ== Disclaimer (test code = d6eqrTSqWWLhp3pyZKKsqB 6454374656) FuZzEwMzNcZnRuYmpcdWMx SObujfZuITkcg4BjA8RdXe AwMFxhbnNpXGRlZmxhbmcx MFFqSWA8vcZrOHIwIIloRO RrRHegZk8hmHDicViuZeHw TMUqb6mbdcZKBSupGqUtC8 73DMFzIWejw6mbd2EiWQNs pMEqz1T4OCDBgnrrzFk9yS kpY12jx1D3CyxzU6neDJYv UNHyF5NxZU3kYEPmMsc3EU O7PMF5YANnIMGkG5JdFZ3j ABNlsWZxWEp9f3pjzTtxDN YwGLR7p0umVZvsauCjJL5r ab3lqBd1a4ewtuPgBKHrAL JwgHKLRJNlH0DznVqjXu6t yKv7cMwzCbknYAR7Hlo9CN 6qsx47yhf0mCljZJXhigea BtV5ITbfTJCbdpqvQHz1EW raPZQhiQB9TAQbdGOeR1Dt YBDzNB5tyib2GPS4XLgoUQ XwMlC4VPYpwELxJJZxyXah MFuki554PLT3CuLiFI1pH6 Qci3K8oE6ijQKrZMPrjBRs OpJjFYYggc9kaNWqWAfut2 ZhZFR3xtN7lNShmPBcXFFo NH28Kkuen2OcCcotw9MsF7 8ivWT9VFnrt5gaTF1vHgW4 azZnCBqfg5nfsT9pUeG0BI agMB3rXW3bNYXwmQ4vjbqy XHBnYnJkcmhlYWRccGdicm VfBi5trOwxNKM7UNdhK1rx sR5wMhB2ELjuQ8mcsQ1eRG r1ZXthfRX9ZRRbcV8nVD7n fkblp4uvQFmhNOqpJDUqte H7ypF3UMLzmLRhH7UsiQ2b EFDvPY3hciczf1ywBGY2CY xjSZLvCZL2PeZfPMOdc9Zh bdi9LxPyu4FyaRAgDPmvU4 5ty925VOMjuyDeO8hqhFHj zljdkDXrqhypKYcgxwE9GQ IkxoKtg8WuGZKkGHX6FVai IXzvhWKuTLZjoXraw5bxM4 RscGFyXHBsYWluXGYxXGZz MjBcbGFuZzEwMzNcaGljaF woOJydLrZbEQHaLOgtS5vt PkHwV5PiHEFsQuNolBLjA1 ggVGhpcyByZXBvcnQgbWF5 EHjpS8p9MILovpOvqLv8uq AdNcCjVEIsBMG6JDgkjIOw IPCax2VivgyusDUkKa7uaH IbWRCajY2zWPOeDAYhLAuu VD4eaKd1HMNRaXIlxBClCu ABCTMvUK26rtOeDTXSvgub s2J4DBlbMGAnu4WgpSVvI9 lyr3QrOTLhj84fTH9ga0P0 f7ixOPW4UK0ru4SkYPVzrO FspEKiVCEaj7Rvkflmz0Ta NZMiqkQkv1ZzYQJfsuLqsP HeCDVlhsGlre5dgxCrONAc YYGlO0NzvcedaXhxfzJgDC Twle6hkgUpSCH3KGTIEPUi DZTih7McdT4mrQJMYCU1eN Bqvo4tnsONvRMwRTYvjf98 ISIaST3yY7fjPCScROJzlm MbcRDqa1IfNNJbvWA5jGRk JW1BUtQTs55kQGMvSAPZia YzOGMdwIoklAL3njL4aA8x IChGREEpLlx+IFRoZSBGRE OjHN2jpnLrh4IaobKblFcm YNQjzMKys1FhgNFeg0OkuO amd2TdlGBnkADpIF6aMDBf clxwYXIgVVRNQiBMYWJvcm W6x2VqPMKpOEYfHDX7yAww kan8LJRixF0dDWYlH4tjxo bxXOfaPRMpd3VvaV4tdAGA gPTqy8EpuDXkcQSCaWAhMX 0bkkCfLJqFRQiHULO0fyEn PCVkp1SoRVmzO9cjQ70rqN idpHv5iIH9FTD9bH9sVqm+ IFxwYXJccGFyIEFwcHJvcH BvWWTokQqoaxZiR2CevnFg yT8aiUQnmtOxQU5nRS8lE5 Y2xCYzOYSbfpHfz5dyNZak dmUgYmVlbiByZXZpZXdlZC Bpp1DrYUfiSPE9UImqcyDi bmNsdWRpbmcgSCZFLCBTcG WnfWLiFQH6NIasmgPzyxVh NR9shX3jvUsxpQ7quPFesT X4rplzPRWjLGOgsDpyYKXn ZQ0pzNMzCTIjzgRGdLnnmA SxlL2aL9TaZGUtFFKtgt2w KPKwuS4eYOslk4WmcbfyHA DjIEZeWKBskwTlgs4kSQHj rXGVFQ2ABChwbZVms7Fcdx KdW1fUQTW0AUJsSmSqNohc YUBzwAXinIOtCENodn62ZE GhnU6awNbvZORppS7hmP7e bXwonQ8nWmGkOqQyVEwdVL 6vVKHiK4qapFQhEGMnIPMj X7ctQoDvuB1rnPykQBnkUg KbGaBnSGlkLJJ7jM== Embedded Images (test code = 5865786835) [facility] METABOLIC PANEL (NA, K, CL, CO2, GLUCOSE, BUN, CREATININE, CA)2022-06-07 09:52:38 Test Item Value Reference Range Interpretation Comments NA (test code = 135 mmol/L 135-145 9537068352) K (test code = 4.0 mmol/L 3.5-5.0 3783539706) CL (test code = 104 mmol/L 98-108 5138164166) CO2 TOTAL (test code = 25 mmol/L 23-31 8350415664) AGAP (test code = 6 2-16 1551660428) BUN (test code = 16 mg/dL 7-23 5780542532) GLUCOSE (test code = 144 mg/dL 70-110 H 4336962317) CREATININE (test code = 1.10 mg/dL 0.60-1.25 2844038291) CALCIUM (test code = 8.4 mg/dL 8.6-10.6 L 0364811557) eGFR (test code = 68.5 mL/min/1.73m2 5080220064) DEWAYNE (test code = DEWAYNE) Association of [...] tests). Lab Interpretation Abnormal (test code = 03501-9) [facility] Test Item Value Reference Range Interpretation Comments MAGNESIUM (test code = 4079729825) 2.5 mg/dL 1.7-2.4 H Lab Interpretation (test code = Abnormal 85880-6) [facility] Test Item Value Reference Range Interpretation Comments PHOSPHORUS (test code = 6323726629) 3.9 mg/dL 2.5-5.0 Lab Interpretation (test code = Normal 72497-0) [facility] WITH [id number] 12:15:07 Test Item Value Reference Range Interpretation Comments WBC (test code = 6.35 See_Comment [Automated 4790-2) message] The sy stem which generated this result transmitted reference range : 4.20 - 10.70 10*3/?L. The reference range was not used to interpret this result as normal/abnormal . RBC (test code = 2.65 See_Comment L [Automated 189-8) message] The sy stem which generated this [...] RDW-SD (test code = 51.5 fL 38.5-51.6 13595-0) RDW-CV (test code = 15.9 % 12.1-15.4 H 788-0) PLT (test code = 115 See_Comment L [Automated 777-3) message] The sy stem which generated this result transmitted reference range : 150 - 328 10*3/ ?L. The reference r mitra was not used to interpret this result as normal/abnormal . MPV (test code = 9.9 fL 9.8-13.0 23754-2) IPF % (test code = 2.9 % 1.2-10.7 Platelet count 7042083945) measured by fluorescence method. NRBC/100 WBC (test 0.3 See_Comment [Automat ed code = 6757164735) message] The system which generated this result transmitted reference range : 0.0 - 10.0 /100 WBCs. The refer ence range was not u sed to interpret th is result as normal/abnormal . NRBC x10^3 (test code 0.02 See_Comment [Auto mated = 4081669478) message] The s ystem which generated this result transmitted reference range : 10*3/?L. The reference range was not used to interpret this result as normal/abnormal . GRAN MAT (NEUT) % 60.5 % (test code = 770-8) IMM GRAN % (test code 1.70 % = 6965661778) LYMPH % (test code = 24.7 % 736-9) MONO % (test code = 8.7 % 5905-5) EOS % (test code = 3.9 % 713-8) BASO % (test code = 0.5 % 706-2) GRAN MAT x10^3(ANC) 3.84 10*3/uL 1.99-6.95 (test code = 6924423032) IMM GRAN x10^3 (test 0.11 10*3/uL 0.00-0.06 H code = 7593672123) LYMPH x10^3 (test code 1.57 10*3/uL 1.09-3.23 = 731-0) MONO x10^3 (test code 0.55 10*3/uL 0.36-1.02 = 742-7) EOS x10^3 (test code = 0.25 10*3/uL 0.06-0.53 711-2) BASO x10^3 (test code 0.03 10*3/uL 0.01-0.09 = 704-7) Lab Interpretation Abnormal (test code = 48647-6) [facility] WITH [id number] 12:15:07 Test Item Value Reference Range Interpretation [...] RDW-SD (test code = 51.5 fL 38.5-51.6 32215-5) RDW-CV (test code = 15.9 % 12.1-15.4 H 788-0) PLT (test code = 115 See_Comment L [Automated 777-3) message] The sy stem which generated this result transmitted reference range : 150 - 328 10*3/ ?L. The reference r mitra was not used to interpret this result as normal/abnormal . MPV (test code = 9.9 fL 9.8-13.0 25860-3) IPF % (test code = 2.9 % 1.2-10.7 Platelet count 0131974360) measured by fluorescence method. NRBC/100 WBC (test 0.3 See_Comment [Automat ed code = 8944828267) message] The system which generated this result transmitted reference range : 0.0 - 10.0 /100 WBCs. The refer ence range was not u sed to interpret th is result as normal/abnormal . NRBC x10^3 (test code 0.02 See_Comment [Auto mated = 9179198840) message] The s ystem which generated this result transmitted reference range : 10*3/?L. The reference range was not used to interpret this result as normal/abnormal . GRAN MAT (NEUT) % 60.5 % (test code = 770-8) IMM GRAN % (test code 1.70 % = 0021745219) LYMPH % (test code = 24.7 % 736-9) MONO % (test code = 8.7 % 5905-5) EOS % (test code = 3.9 % 713-8) BASO % (test code = 0.5 % 706-2) GRAN MAT x10^3(ANC) 3.84 10*3/uL 1.99-6.95 (test code = 7474394497) IMM GRAN x10^3 (test 0.11 10*3/uL 0.00-0.06 H code = 4651636336) LYMPH x10^3 (test code 1.57 10*3/uL 1.09-3.23 = 731-0) MONO x10^3 (test code 0.55 10*3/uL 0.36-1.02 = 742-7) EOS x10^3 (test code = 0.25 10*3/uL 0.06-0.53 711-2) BASO x10^3 (test code 0.03 10*3/uL 0.01-0.09 = 704-7) Lab Interpretation Abnormal (test code = 41448-2) [facility] Test Item Value Reference Range Interpretation Comments MAGNESIUM (test code = 8456938022) 2.4 mg/dL 1.7-2.4 Lab Interpretation (test code = Normal 34883-1) [facility]01 Test Item Value Reference Range Interpretation Comments PHOSPHORUS (test code = 7695129468) 4.1 mg/dL 2.5-5.0 Lab Interpretation (test code = Normal 86216-2) [facility] (NA, K, CL, CO2, GLUCOSE, BUN, CREATININE, CA)2022-06-05 11:43:01 Test Item Value Reference Range Interpretation Comments NA (test code = 137 mmol/L 135-145 3115712547) K (test code = 3.8 mmol/L 3.5-5.0 4206255401) CL (test code = 105 mmol/L 98-108 9925666904) CO2 TOTAL (test code = 28 mmol/L 23-31 5012721803) AGAP (test code = 4 2-16 2360325041) BUN (test code = 17 mg/dL 7-23 6647047437) GLUCOSE (test code = 86 mg/dL 70-110 0818370670) CREATININE (test code = 1.06 mg/dL 0.60-1.25 9083820862) CALCIUM (test code = 8.4 mg/dL 8.6-10.6 L 8906792733) eGFR (test code = 71.5 mL/min/1.73m2 2210910253) DEWAYNE (test code = DEWAYNE) Association of [...] tests). Lab Interpretation Abnormal (test code = 50737-3) [facility] 11:43:01 Test Item Value Reference Range Interpretation Comments MAGNESIUM (test code = 0725982619) 2.4 mg/dL 1.7-2.4 Lab Interpretation (test code = Normal 55455-1) [facility] 11:43:01 Test Item Value Reference Range Interpretation Comments PHOSPHORUS (test code = 8387150039) 4.1 mg/dL 2.5-5.0 Lab Interpretation (test code = Normal 38902-4) [facility] (NA, K, CL, CO2, GLUCOSE, BUN, CREATININE, CA)2022-06-05 11:43:01 Test Item Value Reference Range Interpretation Comments NA (test code = 137 mmol/L 135-145 1370470054) K (test code = 3.8 mmol/L 3.5-5.0 0406198894) CL (test code = 105 mmol/L 98-108 8467304300) CO2 TOTAL (test code = 28 mmol/L 23-31 2260885927) AGAP (test code = 4 2-16 9071584117) BUN (test code = 17 mg/dL 7-23 8652644114) GLUCOSE (test code = 86 mg/dL 70-110 6820496768) CREATININE (test code = 1.06 mg/dL 0.60-1.25 5185159246) CALCIUM (test code = 8.4 mg/dL 8.6-10.6 L 9378179137) eGFR (test code = 71.5 mL/min/1.73m2 6361123629) DEWAYNE (test code = DEWAYNE) Association of [...] tests). Lab Interpretation Abnormal (test code = 68819-0) [facility] (ALB,T.PRO,BILI T,BU/BC,ALT,AST,ALK PHOS)2022-06-04 08:25:57 Test Item Value Reference Range Interpretation Comments TOTAL BILI (test code = 5551021212) 0.7 mg/dL 0.1-1.1 BILI UNCON (test code = 5820559677) 0.3 mg/dL 0.1-1.1 BILI CONJ (test code = 6160384471) 0.0 mg/dL 0.0-0.3 T PROTEIN (test code = 6569146227) 6.4 g/dL 6.3-8.2 ALBUMIN (test code = 2660946107) 3.7 g/dL 3.5-5.0 ALK PHOS (test code = 7165533422) 105 U/L 34-122 ALTv (test code = 1742-6) 71 U/L 5-50 H AST(SGOT) (test code = 9961850781) 51 U/L 13-40 H Lab Interpretation (test code = Abnormal 47434-1) [facility] (ALB,T.PRO,BILI T,BU/BC,ALT,AST,ALK PHOS)2022-06-04 08:25:57 Test Item Value Reference Range Interpretation Comments TOTAL BILI (test code = 9474280508) 0.7 mg/dL 0.1-1.1 BILI UNCON (test code = 8786692543) 0.3 mg/dL 0.1-1.1 BILI CONJ (test code = 5877121221) 0.0 mg/dL 0.0-0.3 T PROTEIN (test code = 6709474833) 6.4 g/dL 6.3-8.2 ALBUMIN (test code = 1581067051) 3.7 g/dL 3.5-5.0 ALK PHOS (test code = 6125731496) 105 U/L 34-122 ALTv (test code = 1742-6) 71 U/L 5-50 H AST(SGOT) (test code = 7398395783) 51 U/L 13-40 H Lab Interpretation (test code = Abnormal 00777-2) [facility] [id number] 06:14:08 Test Item Value Reference Range Interpretation Comments TROPONIN I (test code = 0.027 ng/mL <=0.034 5302155800) DEWAYNE (test code = DEWAYNE) Reference (Normal) [...] biotin. Lab Interpretation Normal (test code = 63298-9) [facility] [id number] 06:14:08 Test Item Value Reference Range Interpretation Comments TROPONIN I (test code = 0.027 ng/mL <=0.034 1785076948) DEWAYNE (test code = DEWAYNE) Reference (Normal) [...] biotin. Lab Interpretation Normal (test code = 80144-2) [facility] WITH [id number] 05:33:25 Test Item Value Reference Range Interpretation Comments WBC (test code = 9.78 See_Comment [Automated 0190-2) message] The sy stem which generated this result transmitted reference range : 4.20 - 10.70 10*3/?L. The reference range was not used to interpret this result as normal/abnormal . RBC (test code = 2.85 See_Comment L [Automated 779-8) message] The sy [...] RDW-SD (test code = 50.4 fL 38.5-51.6 02872-9) RDW-CV (test code = 15.9 % 12.1-15.4 H 788-0) PLT (test code = 121 See_Comment L [Automated 777-3) message] The sy stem which generated this result transmitted reference range : 150 - 328 10*3/ ?L. The reference r mitra was not used to interpret this result as normal/abnormal . MPV (test code = 8.7 fL 9.8-13.0 L 13387-7) IPF % (test code = 2.3 % 1.2-10.7 Platelet count 0800294465) measured by fluorescence method. NRBC/100 WBC (test 0.6 See_Comment [Automat ed code = 6277530165) message] The system which generated this result transmitted reference range : 0.0 - 10.0 /100 WBCs. The refer ence range was not u sed to interpret th is result as normal/abnormal . NRBC x10^3 (test code 0.06 See_Comment [Auto mated = 9676349818) message] The s ystem which generated this result transmitted reference range : 10*3/?L. The reference range was not used to interpret this result as normal/abnormal . GRAN MAT (NEUT) % 80.9 % (test code = 770-8) IMM GRAN % (test code 4.80 % = 5643794760) LYMPH % (test code = 8.6 % 736-9) MONO % (test code = 5.6 % 5905-5) EOS % (test code = 0.0 % 713-8) BASO % (test code = 0.1 % 706-2) GRAN MAT x10^3(ANC) 7.91 10*3/uL 1.99-6.95 H (test code = 1828767711) IMM GRAN x10^3 (test 0.47 10*3/uL 0.00-0.06 H code = 5681442045) LYMPH x10^3 (test code 0.84 10*3/uL 1.09-3.23 L = 731-0) MONO x10^3 (test code 0.55 10*3/uL 0.36-1.02 = 742-7) EOS x10^3 (test code = 0.06-0.53 L 711-2) BASO x10^3 (test code 0.01-0.09 = 704-7) Lab Interpretation Abnormal (test code = 86398-4) [facility] WITH [id number] 05:33:25 Test Item Value Reference Range Interpretation [...] RDW-SD (test code = 50.4 fL 38.5-51.6 05841-1) RDW-CV (test code = 15.9 % 12.1-15.4 H 788-0) PLT (test code = 121 See_Comment L [Automated 777-3) message] The sy stem which generated this result transmitted reference range : 150 - 328 10*3/ ?L. The reference r mitra was not used to interpret this result as normal/abnormal . MPV (test code = 8.7 fL 9.8-13.0 L 45490-3) IPF % (test code = 2.3 % 1.2-10.7 Platelet count 3451479945) measured by fluorescence method. NRBC/100 WBC (test 0.6 See_Comment [Automat ed code = 5478937334) message] The system which generated this result transmitted reference range : 0.0 - 10.0 /100 WBCs. The refer ence range was not u sed to interpret th is result as normal/abnormal . NRBC x10^3 (test code 0.06 See_Comment [Auto mated = 6264765976) message] The s ystem which generated this result transmitted reference range : 10*3/?L. The reference range was not used to interpret this result as normal/abnormal . GRAN MAT (NEUT) % 80.9 % (test code = 770-8) IMM GRAN % (test code 4.80 % = 2026381081) LYMPH % (test code = 8.6 % 736-9) MONO % (test code = 5.6 % 5905-5) EOS % (test code = 0.0 % 713-8) BASO % (test code = 0.1 % 706-2) GRAN MAT x10^3(ANC) 7.91 10*3/uL 1.99-6.95 H (test code = 7100582974) IMM GRAN x10^3 (test 0.47 10*3/uL 0.00-0.06 H code = 0540351053) LYMPH x10^3 (test code 0.84 10*3/uL 1.09-3.23 L = 731-0) MONO x10^3 (test code 0.55 10*3/uL 0.36-1.02 = 742-7) EOS x10^3 (test code = 0.06-0.53 L 711-2) BASO x10^3 (test code 0.01-0.09 = 704-7) Lab Interpretation Abnormal (test code = 41875-5) [facility] METABOLIC PANEL (NA, K, CL, CO2, GLUCOSE, BUN, CREATININE, CA)2022-06-04 05:32:04 Test Item Value Reference Range Interpretation Comments NA (test code = 136 mmol/L 135-145 8403687662) K (test code = 4.1 mmol/L 3.5-5.0 9104944173) CL (test code = 104 mmol/L 98-108 8274113338) CO2 TOTAL (test code = 25 mmol/L 23-31 8887832727) AGAP (test code = 7 2-16 1706628039) BUN (test code = 19 mg/dL 7-23 5208957071) GLUCOSE (test code = 166 mg/dL 70-110 H 5633670128) CREATININE (test code = 1.00 mg/dL 0.60-1.25 7951327118) CALCIUM (test code = 8.8 mg/dL 8.6-10.6 2836499310) eGFR (test code = 76.5 mL/min/1.73m2 6794452474) DEWAYNE (test code = DEWAYNE) Association of [...] tests). Lab Interpretation Abnormal (test code = 87461-3) [facility] METABOLIC PANEL (NA, K, CL, CO2, GLUCOSE, BUN, CREATININE, CA)2022-06-04 05:32:04 Test Item Value Reference Range Interpretation Comments NA (test code = 136 mmol/L 135-145 4022404006) K (test code = 4.1 mmol/L 3.5-5.0 4987939016) CL (test code = 104 mmol/L 98-108 5551328446) CO2 TOTAL (test code = 25 mmol/L 23-31 3618970148) AGAP (test code = 7 2-16 1624105006) BUN (test code = 19 mg/dL 7-23 3229215086) GLUCOSE (test code = 166 mg/dL 70-110 H 1185809795) CREATININE (test code = 1.00 mg/dL 0.60-1.25 6584319115) CALCIUM (test code = 8.8 mg/dL 8.6-10.6 3832328908) eGFR (test code = 76.5 mL/min/1.73m2 7574713986) DEWAYNE (test code = DEWAYNE) Association of [...] tests). Lab Interpretation Abnormal (test code = 99358-8) [facility]2022-06-04 05:24:43 Test Item Value Reference Range Interpretation Comments APTT Patient (test code 105 See_Comment HH [Au tomated message] = 1463-2) The system [employer] generated this result transmitted ref erence range: 26 - 36 Seconds. The reference range was not used to int erpret this result as normal/abnormal . Lab Interpretation (test Abnormal code = 50134-2) [facility]2022-06-04 05:24:43 Test Item Value Reference Range Interpretation Comments APTT Patient (test code 105 See_Comment HH [Au tomated message] = 3173-2) The system [employer] generated this result transmitted ref erence range: 26 - 36 Seconds. The reference range was not used to int erpret this result as normal/abnormal . Lab Interpretation (test Abnormal code = 90831-3) [facility]+K+GLU+CA2+2022-06-04 02:57:07 Test Item Value Reference Range Interpretation Comments PH (test code = 2) 7.31 7.35-7.45 L PCO2 (test code = 42 See_Comment [Automate d message] 9424924828) The system [employer] generated this result transmit elizabeth reference range : 35 - 45 mmHg. The reference range was not used to interpret this result as normal/abnormal . PO2 (test code = 144 See_Comment H [Automated message] 9573382692) The system [employer] generated this result transmit elizabeth reference range : 80 - 100 mmHg. The reference range was not used to interpret this result as normal/abnormal . HCO3 (test code = 21 See_Comment L [Automate d message] 1729234324) The system [employer] generated this result transmit elizabeth reference range : 22 - 26 mEq/L. The reference range was not used to interpret this result as normal/abnormal . BE (test code = -4.8 See_Comment L [Automated message] 6204422493) The system [employer] generated this result transmit elizabeth reference range : -3.0 - 3.0 mEq/ L. The reference r mitra was not used to interpret this result as normal/abnormal . THB (test code = 9.6 g/dL 13.5-18.0 L 2221348857) %O2HB (test code = 98.4 % 94.0-99.0 9912863590) %COHB ART (test code = 0.1 % 0.0-1.5 3781175196) %METHB ART (test code = 0.1 % 0.4-1.5 L 0863942785) VOL%O2 ART (test code = 13.6 % 15.0-23.0 L QUES 5923647606) NA (test code = 133 mmol/L 135-145 L 4646067079) K+ (test code = 4.6 mmol/L 3.5-5.0 0407906852) AC CA IONZ (test code = 4.40 mg/dL 4.50-5.30 L 8029520219) GLUCOSE (test code = 148 mg/dL 70-110 H 0285256855) Lab Interpretation Abnormal (test code = 53720-8) [facility]GLU[facility]CA2+2022-06-04 02:57:07 Test Item Value Reference Range Interpretation Comments PH (test code = 2) 7.31 7.35-7.45 L PCO2 (test code = 42 See_Comment [Automate d message] 9552971288) The system [employer] generated this result transmit elizabeth reference range : 35 - 45 mmHg. The reference range was not used to interpret this result as normal/abnormal . PO2 (test code = 144 See_Comment H [Automated message] 5390094266) The system [employer] generated this result transmit elizabeth reference range : 80 - 100 mmHg. The reference range was not used to interpret this result as normal/abnormal . HCO3 (test code = 21 See_Comment L [Automate d message] 3729267442) The system [employer] generated this result transmit elizabeth reference range : 22 - 26 mEq/L. The reference range was not used to interpret this result as normal/abnormal . BE (test code = -4.8 See_Comment L [Automated message] 9305385944) The system [employer] generated this result transmit elizaebth reference range : -3.0 - 3.0 mEq/ L. The reference r mitra was not used to interpret this result as normal/abnormal . THB (test code = 9.6 g/dL 13.5-18.0 L 1770631492) %O2HB (test code = 98.4 % 94.0-99.0 0576407972) %COHB ART (test code = 0.1 % 0.0-1.5 3628535352) %METHB ART (test code = 0.1 % 0.4-1.5 L 6976650886) VOL%O2 ART (test code = 13.6 % 15.0-23.0 L QUES 5082885643) NA (test code = 133 mmol/L 135-145 L 4769101547) K+ (test code = 4.6 mmol/L 3.5-5.0 2556613362) AC CA IONZ (test code = 4.40 mg/dL 4.50-5.30 L 1834443523) GLUCOSE (test code = 148 mg/dL 70-110 H 1030231078) Lab Interpretation Abnormal (test code = 30833-6) [facility]GLU[facility]CA2+2022-06-04 02:55:52 Test Item Value Reference Range Interpretation Comments PH (test code = 2) 7.31 7.35-7.45 L PCO2 (test code = 38 See_Comment [Automate d message] 0475279211) The system [employer] generated this result transmit elizabeth reference range : 35 - 45 mmHg. The reference range was not used to interpret this result as normal/abnormal . PO2 (test code = 180 See_Comment H [Automated message] 1321776309) The system [employer] generated this result transmit elizabeth reference range : 80 - 100 mmHg. The reference range was not used to interpret this result as normal/abnormal . HCO3 (test code = 19 See_Comment L [Automate d message] 8920998340) The system [employer] generated this result transmit elizabeth reference range : 22 - 26 mEq/L. The reference range was not used to interpret this result as normal/abnormal . BE (test code = -7.2 See_Comment L [Automated message] 5819548317) The system [employer] generated this result transmit elizabeth reference range : -3.0 - 3.0 mEq/ L. The reference r mitra was not used to interpret this result as normal/abnormal . THB (test code = 8.4 g/dL 13.5-18.0 L 4822083062) %O2HB (test code = 98.1 % 94.0-99.0 2874440611) %COHB ART (test code = 0.4 % 0.0-1.5 1424654006) %METHB ART (test code = 0.3 % 0.4-1.5 L 0457665793) VOL%O2 ART (test code = 12.0 % 15.0-23.0 L QUES 7436967765) NA (test code = 135 mmol/L 135-145 2900428066) K+ (test code = 4.1 mmol/L 3.5-5.0 5615153087) AC CA IONZ (test code = 4.90 mg/dL 4.50-5.30 2873695846) GLUCOSE (test code = 128 mg/dL 70-110 H 5284620901) Lab Interpretation Abnormal (test code = 87441-5) [facility]GLU[facility]CA2+2022-06-04 02:55:52 Test Item Value Reference Range Interpretation Comments PH (test code = 2) 7.31 7.35-7.45 L PCO2 (test code = 38 See_Comment [Automate d message] 9941206448) The system [employer] generated this result transmit elizabeth reference range : 35 - 45 mmHg. The reference range was not used to interpret this result as normal/abnormal . PO2 (test code = 180 See_Comment H [Automated message] 7564953110) The system [employer] generated this result transmit elizabeth reference range : 80 - 100 mmHg. The reference range was not used to interpret this result as normal/abnormal . HCO3 (test code = 19 See_Comment L [Automate d message] 2427281807) The system [employer] generated this result transmit elizabeth reference range : 22 - 26 mEq/L. The reference range was not used to interpret this result as normal/abnormal . BE (test code = -7.2 See_Comment L [Automated message] 5967021897) The system [employer] generated this result transmit elizabeth reference range : -3.0 - 3.0 mEq/ L. The reference r mitra was not used to interpret this result as normal/abnormal . THB (test code = 8.4 g/dL 13.5-18.0 L 9825871557) %O2HB (test code = 98.1 % 94.0-99.0 1059826382) %COHB ART (test code = 0.4 % 0.0-1.5 5620485507) %METHB ART (test code = 0.3 % 0.4-1.5 L 8434103922) VOL%O2 ART (test code = 12.0 % 15.0-23.0 L QUES 1429356273) NA (test code = 135 mmol/L 135-145 2913356016) K+ (test code = 4.1 mmol/L 3.5-5.0 3055281488) AC CA IONZ (test code = 4.90 mg/dL 4.50-5.30 4152311800) GLUCOSE (test code = 128 mg/dL 70-110 H 7535970058) Lab Interpretation Abnormal (test code = 54184-3) [facility] Oqhywkk4490-64-64 13:22:00 Test Item Value Reference Range Interpretation Comments ABO & RH (test code = 20) AB POSITIVE IAT (test code = 1185) Negative [facility] Tzbwnmu0075-02-89 13:22:00 Test Item Value Reference Range Interpretation Comments ABO & RH (test code = 20) AB POSITIVE IAT (test code = 1185) Negative [facility] CenterCBC WITH [id number] 11:35:29 Test Item Value Reference Range Interpretation Comments WBC (test code = 11.02 See_Comment H [Automated 4990-2) message] The sy stem which generated this result transmitted reference range : 4.20 - 10.70 10*3/?L. The reference range was not used to interpret this result as normal/abnormal . RBC (test code = 3.21 See_Comment L [Automated 919-8) message] The sy [...] RDW-SD (test code = 50.8 fL 38.5-51.6 59341-2) RDW-CV (test code = 15.9 % 12.1-15.4 H 788-0) PLT (test code = 265 See_Comment [Automated 777-3) message] The sy stem which generated this result transmitted reference range : 150 - 328 10*3/ ?L. The reference r mitra was not used to interpret this result as normal/abnormal . MPV (test code = 9.0 fL 9.8-13.0 L 31469-3) NRBC/100 WBC (test 0.5 See_Comment [Automat ed code = 6037076524) message] The system which generated this result transmitted reference range : 0.0 - 10.0 /100 WBCs. The refer ence range was not u sed to interpret th is result as normal/abnormal . NRBC x10^3 (test code 0.06 See_Comment [Auto mated = 1658825543) message] The s ystem which generated this result transmitted reference range : 10*3/?L. The reference range was not used to interpret this result as normal/abnormal . GRAN MAT (NEUT) % 67.4 % (test code = 770-8) IMM GRAN % (test code 5.90 % = 5233880212) LYMPH % (test code = 13.6 % 736-9) MONO % (test code = 8.5 % 5905-5) EOS % (test code = 4.1 % 713-8) BASO % (test code = 0.5 % 706-2) GRAN MAT x10^3(ANC) 7.42 10*3/uL 1.99-6.95 H (test code = 9705603820) IMM GRAN x10^3 (test 0.65 10*3/uL 0.00-0.06 H code = 1467140466) LYMPH x10^3 (test code 1.50 10*3/uL 1.09-3.23 = 731-0) MONO x10^3 (test code 0.94 10*3/uL 0.36-1.02 = 742-7) EOS x10^3 (test code = 0.45 10*3/uL 0.06-0.53 711-2) BASO x10^3 (test code 0.06 10*3/uL 0.01-0.09 = 704-7) Lab Interpretation Abnormal (test code = 40249-0) [facility] WITH [id number] 11:35:29 Test Item Value Reference Range Interpretation [...] RDW-SD (test code = 50.8 fL 38.5-51.6 40341-2) RDW-CV (test code = 15.9 % 12.1-15.4 H 788-0) PLT (test code = 265 See_Comment [Automated 777-3) message] The sy stem which generated this result transmitted reference range : 150 - 328 10*3/ ?L. The reference r mitra was not used to interpret this result as normal/abnormal . MPV (test code = 9.0 fL 9.8-13.0 L 54384-5) NRBC/100 WBC (test 0.5 See_Comment [Automat ed code = 5069811236) message] The system which generated this result transmitted reference range : 0.0 - 10.0 /100 WBCs. The refer ence range was not u sed to interpret th is result as normal/abnormal . NRBC x10^3 (test code 0.06 See_Comment [Auto mated = 1038968211) message] The s ystem which generated this result transmitted reference range : 10*3/?L. The reference range was not used to interpret this result as normal/abnormal . GRAN MAT (NEUT) % 67.4 % (test code = 770-8) IMM GRAN % (test code 5.90 % = 4831093907) LYMPH % (test code = 13.6 % 736-9) MONO % (test code = 8.5 % 5905-5) EOS % (test code = 4.1 % 713-8) BASO % (test code = 0.5 % 706-2) GRAN MAT x10^3(ANC) 7.42 10*3/uL 1.99-6.95 H (test code = 8306399476) IMM GRAN x10^3 (test 0.65 10*3/uL 0.00-0.06 H code = 7865467628) LYMPH x10^3 (test code 1.50 10*3/uL 1.09-3.23 = 731-0) MONO x10^3 (test code 0.94 10*3/uL 0.36-1.02 = 742-7) EOS x10^3 (test code = 0.45 10*3/uL 0.06-0.53 711-2) BASO x10^3 (test code 0.06 10*3/uL 0.01-0.09 = 704-7) Lab Interpretation Abnormal (test code = 78406-2) [facility] 11:30:46 Test Item Value Reference Range Interpretation Comments MAGNESIUM (test code = 1380610699) 2.4 mg/dL 1.7-2.4 Lab Interpretation (test code = Normal 19120-1) [facility]20[facility] 11:30:46 Test Item Value Reference Range Interpretation Comments PHOSPHORUS (test code = 5844091753) 4.8 mg/dL 2.5-5.0 Lab Interpretation (test code = Normal 88389-4) [facility] (NA, K, CL, CO2, GLUCOSE, BUN, CREATININE, CA)2022-06-03 11:30:46 Test Item Value Reference Range Interpretation Comments NA (test code = 136 mmol/L 135-145 1370821281) K (test code = 4.2 mmol/L 3.5-5.0 6634221342) CL (test code = 104 mmol/L 98-108 5674631006) CO2 TOTAL (test code 26 mmol/L 23-31 = 0513642944) AGAP (test code = 6 2-16 9339954798) BUN (test code = 18 mg/dL 7-23 6225934148) GLUCOSE (test code = 103 mg/dL 70-110 0655119538) CREATININE (test code 1.08 mg/dL 0.60-1.25 = 8615985266) CALCIUM (test code = 8.7 mg/dL 8.6-10.6 1590557784) eGFR (test code = 70.0 mL/min/1.73m2 2054732528) DEWAYNE (test code = DEWAYNE) Association of [...] or urine or abnormalities in imaging tests). [facility] 11:30:46 Test Item Value Reference Range Interpretation Comments MAGNESIUM (test code = 3995858242) 2.4 mg/dL 1.7-2.4 Lab Interpretation (test code = Normal 34219-2) [facility] 11:30:46 Test Item Value Reference Range Interpretation Comments PHOSPHORUS (test code = 3456457170) 4.8 mg/dL 2.5-5.0 Lab Interpretation (test code = Normal 93464-1) [facility] (NA, K, CL, CO2, GLUCOSE, BUN, CREATININE, CA)2022-06-03 11:30:46 Test Item Value Reference Range Interpretation Comments NA (test code = 136 mmol/L 135-145 3520933972) K (test code = 4.2 mmol/L 3.5-5.0 6710161440) CL (test code = 104 mmol/L 98-108 4043903959) CO2 TOTAL (test code 26 mmol/L 23-31 = 5648810654) AGAP (test code = 6 2-16 4397201525) BUN (test code = 18 mg/dL 7-23 2043511904) GLUCOSE (test code = 103 mg/dL 70-110 5562986655) CREATININE (test code 1.08 mg/dL 0.60-1.25 = 4427013272) CALCIUM (test code = 8.7 mg/dL 8.6-10.6 0569385262) eGFR (test code = 70.0 mL/min/1.73m2 1254435357) DEWAYNE (test code = DEWAYNE) Association of [...] or urine or abnormalities in imaging tests). [facility] (for use with Heparin Drip)2022-06-03 11:15:05 Test Item Value Reference Range Interpretation Comments APTT Patient (test code 52 See_Comment H [Au tomated message] = 3173-2) The system [employer] generated this result transmitted ref erence range: 26 - 36 Seconds. The reference range was not used to int erpret this result as normal/abnormal . Lab Interpretation (test Abnormal code = 13607-5) [facility] (for use with Heparin Drip)2022-06-03 11:15:05 Test Item Value Reference Range Interpretation Comments APTT Patient (test code 52 See_Comment H [Au tomated message] = 3173-2) The system [employer] generated this result transmitted ref erence range: 26 - 36 Seconds. The reference range was not used to int erpret this result as normal/abnormal . Lab Interpretation (test Abnormal code = 14751-3) [facility] METABOLIC PANEL (NA, K, CL, CO2, GLUCOSE, BUN, CREATININE, CA)2022-06-02 13:56:04 Test Item Value Reference Range Interpretation Comments NA (test code = 137 mmol/L 135-145 2879952732) K (test code = 4.4 mmol/L 3.5-5.0 0154169252) CL (test code = 105 mmol/L 98-108 0734281106) CO2 TOTAL (test code 27 mmol/L 23-31 = 0077737220) AGAP (test code = 5 2-16 7962804751) BUN (test code = 19 mg/dL 7-23 8525397367) GLUCOSE (test code = 92 mg/dL 70-110 9149564113) CREATININE (test code 0.96 mg/dL 0.60-1.25 = 5601330293) CALCIUM (test code = 8.7 mg/dL 8.6-10.6 4275476733) eGFR (test code = 80.2 mL/min/1.73m2 9491814696) DEWAYNE (test code = DEWAYNE) Association of [...] [facility] (NA, K, CL, CO2, GLUCOSE, BUN, CREATININE, CA)2022-06-02 13:56:04 Test Item Value Reference Range Interpretation Comments NA (test code = 137 mmol/L 135-145 9523389958) K (test code = 4.4 mmol/L 3.5-5.0 4161537474) CL (test code = 105 mmol/L 98-108 3249027569) CO2 TOTAL (test code 27 mmol/L 23-31 = 4300963169) AGAP (test code = 5 2-16 2836522424) BUN (test code = 19 mg/dL 7-23 3594652387) GLUCOSE (test code = 92 mg/dL 70-110 0770008222) CREATININE (test code 0.96 mg/dL 0.60-1.25 = 9805897098) CALCIUM (test code = 8.7 mg/dL 8.6-10.6 6221003622) eGFR (test code = 80.2 mL/min/1.73m2 7971293596) DEWAYNE (test code = DEWAYNE) Association of [...] or urine or abnormalities in imaging tests). [facility] WITH [id number] 11:30:12 Test Item Value Reference Range Interpretation [...] RDW-SD (test code = 50.1 fL 38.5-51.6 39867-0) RDW-CV (test code = 15.8 % 12.1-15.4 H 788-0) PLT (test code = 239 See_Comment [Automated 777-3) message] The sy stem which generated this result transmitted reference range : 150 - 328 10*3/ ?L. The reference r mitra was not used to interpret this result as normal/abnormal . MPV (test code = 9.1 fL 9.8-13.0 L 62822-6) NRBC/100 WBC (test 0.8 See_Comment [Automat ed code = [id number]) message] The system which generated this result transmitted reference range : 0.0 - 10.0 /100 WBCs. The refer ence range was not u sed to interpret th is result as normal/abnormal . NRBC x10^3 (test code 0.07 See_Comment [Auto mated = [id number]) message] The s ystem which generated this result transmitted reference range : 10*3/?L. The reference range was not used to interpret this result as normal/abnormal . GRAN MAT (NEUT) % 56.4 % (test code = 770-8) IMM GRAN % (test code 6.70 % = [id number]) LYMPH % (test code = 23.9 % 736-9) MONO % (test code = 7.3 % 5905-5) EOS % (test code = 4.9 % 713-8) BASO % (test code = 0.8 % 706-2) GRAN MAT x10^3(ANC) 4.93 10*3/uL 1.99-6.95 (test code = [id number]) IMM GRAN x10^3 (test 0.59 10*3/uL 0.00-0.06 H code = 1072314218) LYMPH x10^3 (test code 2.09 10*3/uL 1.09-3.23 = 731-0) MONO x10^3 (test code 0.64 10*3/uL 0.36-1.02 = 742-7) EOS x10^3 (test code = 0.43 10*3/uL 0.06-0.53 711-2) BASO x10^3 (test code 0.07 10*3/uL 0.01-0.09 = 704-7) Lab Interpretation Abnormal (test code = 87504-7) [facility] WITH [id number] 11:30:12 Test Item Value Reference Range Interpretation Comments WBC (test code = 8.75 See_Comment [Automated 6790-2) message] The sy stem which generated this result transmitted reference range : 4.20 - 10.70 10*3/?L. The reference range was not used to interpret this result as normal/abnormal . RBC (test code = 3.25 See_Comment L [Automated 809-8) message] The sy [...] RDW-SD (test code = 50.1 fL 38.5-51.6 30646-4) RDW-CV (test code = 15.8 % 12.1-15.4 H 788-0) PLT (test code = 239 See_Comment [Automated 777-3) message] The sy stem which generated this result transmitted reference range : 150 - 328 10*3/ ?L. The reference r mitra was not used to interpret this result as normal/abnormal . MPV (test code = 9.1 fL 9.8-13.0 L 33340-2) NRBC/100 WBC (test 0.8 See_Comment [Automat ed code = 3238532774) message] The system which generated this result transmitted reference range : 0.0 - 10.0 /100 WBCs. The refer ence range was not u sed to interpret th is result as normal/abnormal . NRBC x10^3 (test code 0.07 See_Comment [Auto mated = 0873216062) message] The s ystem which generated this result transmitted reference range : 10*3/?L. The reference range was not used to interpret this result as normal/abnormal . GRAN MAT (NEUT) % 56.4 % (test code = 770-8) IMM GRAN % (test code 6.70 % = 0717452871) LYMPH % (test code = 23.9 % 736-9) MONO % (test code = 7.3 % 5905-5) EOS % (test code = 4.9 % 713-8) BASO % (test code = 0.8 % 706-2) GRAN MAT x10^3(ANC) 4.93 10*3/uL 1.99-6.95 (test code = 3609205182) IMM GRAN x10^3 (test 0.59 10*3/uL 0.00-0.06 H code = 2791003379) LYMPH x10^3 (test code 2.09 10*3/uL 1.09-3.23 = 731-0) MONO x10^3 (test code 0.64 10*3/uL 0.36-1.02 = 742-7) EOS x10^3 (test code = 0.43 10*3/uL 0.06-0.53 711-2) BASO x10^3 (test code 0.07 10*3/uL 0.01-0.09 = 704-7) Lab Interpretation Abnormal (test code = 27474-5) [facility] Test Item Value Reference Range Interpretation Comments MAGNESIUM (test code = 3056320383) 2.3 mg/dL 1.7-2.4 Lab Interpretation (test code = Normal 07004-7) [facility] 11:16:48 Test Item Value Reference Range Interpretation Comments PHOSPHORUS (test code = 0048785064) 4.8 mg/dL 2.5-5.0 Lab Interpretation (test code = Normal 06085-3) [facility] Test Item Value Reference Range Interpretation Comments MAGNESIUM (test code = 3128703929) 2.3 mg/dL 1.7-2.4 Lab Interpretation (test code = Normal 45086-9) [facility] 11:16:48 Test Item Value Reference Range Interpretation Comments PHOSPHORUS (test code = 9672503713) 4.8 mg/dL 2.5-5.0 Lab Interpretation (test code = Normal 92626-9) [facility] WITH [id number] 11:58:20 Test Item Value Reference Range Interpretation Comments WBC (test code = 9.20 See_Comment [Automated 6465-2) message] The sy stem which generated this result transmitted reference range : 4.20 - 10.70 10*3/?L. The reference range was not used to interpret this result as normal/abnormal . RBC (test code = 3.18 See_Comment L [Automated 740-8) message] The sy stem which generated this [...] RDW-SD (test code = 48.3 fL 38.5-51.6 47012-8) RDW-CV (test code = 15.2 % 12.1-15.4 788-0) PLT (test code = 181 See_Comment [Automated 777-3) message] The sy stem which generated this result transmitted reference range : 150 - 328 10*3/ ?L. The reference r mitra was not used to interpret this result as normal/abnormal . MPV (test code = 9.4 fL 9.8-13.0 L 83231-2) NRBC/100 WBC (test 0.3 See_Comment [Automat ed code = 1919139628) message] The system which generated this result transmitted reference range : 0.0 - 10.0 /100 WBCs. The refer ence range was not u sed to interpret th is result as normal/abnormal . NRBC x10^3 (test code 0.03 See_Comment [Auto mated = 8728071379) message] The s ystem which generated this result transmitted reference range : 10*3/?L. The reference range was not used to interpret this result as normal/abnormal . GRAN MAT (NEUT) % 59.7 % (test code = 770-8) IMM GRAN % (test code 5.80 % = 1183539368) LYMPH % (test code = 21.3 % 736-9) MONO % (test code = 8.7 % 5905-5) EOS % (test code = 4.1 % 713-8) BASO % (test code = 0.4 % 706-2) GRAN MAT x10^3(ANC) 5.49 10*3/uL 1.99-6.95 (test code = 4135016647) IMM GRAN x10^3 (test 0.53 10*3/uL 0.00-0.06 H code = 1332244455) LYMPH x10^3 (test code 1.96 10*3/uL 1.09-3.23 = 731-0) MONO x10^3 (test code 0.80 10*3/uL 0.36-1.02 = 742-7) EOS x10^3 (test code = 0.38 10*3/uL 0.06-0.53 711-2) BASO x10^3 (test code 0.04 10*3/uL 0.01-0.09 = 704-7) Lab Interpretation Abnormal (test code = 46843-9) [facility] WITH [id number] 11:58:20 Test Item Value Reference Range Interpretation Comments WBC (test code = 9.20 See_Comment [Automated 6290-2) message] The sy stem [...] RDW-SD (test code = 48.3 fL 38.5-51.6 41789-3) RDW-CV (test code = 15.2 % 12.1-15.4 788-0) PLT (test code = 181 See_Comment [Automated 777-3) message] The sy stem which generated this result transmitted reference range : 150 - 328 10*3/ ?L. The reference r mitra was not used to interpret this result as normal/abnormal . MPV (test code = 9.4 fL 9.8-13.0 L 01881-1) NRBC/100 WBC (test 0.3 See_Comment [Automat ed code = 4268203692) message] The system which generated this result transmitted reference range : 0.0 - 10.0 /100 WBCs. The refer ence range was not u sed to interpret th is result as normal/abnormal . NRBC x10^3 (test code 0.03 See_Comment [Auto mated = 1682386486) message] The s ystem which generated this result transmitted reference range : 10*3/?L. The reference range was not used to interpret this result as normal/abnormal . GRAN MAT (NEUT) % 59.7 % (test code = 770-8) IMM GRAN % (test code 5.80 % = 1586941036) LYMPH % (test code = 21.3 % 736-9) MONO % (test code = 8.7 % 5905-5) EOS % (test code = 4.1 % 713-8) BASO % (test code = 0.4 % 706-2) GRAN MAT x10^3(ANC) 5.49 10*3/uL 1.99-6.95 (test code = 7613197820) IMM GRAN x10^3 (test 0.53 10*3/uL 0.00-0.06 H code = 4338849518) LYMPH x10^3 (test code 1.96 10*3/uL 1.09-3.23 = 731-0) MONO x10^3 (test code 0.80 10*3/uL 0.36-1.02 = 742-7) EOS x10^3 (test code = 0.38 10*3/uL 0.06-0.53 711-2) BASO x10^3 (test code 0.04 10*3/uL 0.01-0.09 = 704-7) Lab Interpretation Abnormal (test code = 96703-2) [facility] 11[facility]:55 Test Item Value Reference Range Interpretation Comments MAGNESIUM (test code = 0442026840) 2.3 mg/dL 1.7-2.4 Lab Interpretation (test code = Normal 09261-0) [facility] 11:41:55 Test Item Value Reference Range Interpretation Comments PHOSPHORUS (test code = 4146062987) 3.4 mg/dL 2.5-5.0 Lab Interpretation (test code = Normal 97276-3) [facility] (NA, K, CL, CO2, GLUCOSE, BUN, CREATININE, CA)2022-06-01 11:41:55 Test Item Value Reference Range Interpretation Comments NA (test code = 137 mmol/L 135-145 8433216921) K (test code = 4.1 mmol/L 3.5-5.0 3548052414) CL (test code = 105 mmol/L 98-108 2722592784) CO2 TOTAL (test code = 27 mmol/L 23-31 1011398392) AGAP (test code = 5 2-16 7457697594) BUN (test code = 17 mg/dL 7-23 0638071225) GLUCOSE (test code = 135 mg/dL 70-110 H 6997735403) CREATININE (test code = 0.84 mg/dL 0.60-1.25 0568434735) CALCIUM (test code = 8.4 mg/dL 8.6-10.6 L 9952221333) eGFR (test code = 93.5 mL/min/1.73m2 6995661015) DEWAYNE (test code = DEWAYNE) Association of [...] tests). Lab Interpretation Abnormal (test code = 08244-9) [facility] 11:41:55 Test Item Value Reference Range Interpretation Comments MAGNESIUM (test code = 9430704355) 2.3 mg/dL 1.7-2.4 Lab Interpretation (test code = Normal 10585-2) [facility] 11:41:55 Test Item Value Reference Range Interpretation Comments PHOSPHORUS (test code = 3457933380) 3.4 mg/dL 2.5-5.0 Lab Interpretation (test code = Normal 90281-6) [facility] (NA, K, CL, CO2, GLUCOSE, BUN, CREATININE, CA)2022-06-01 11:41:55 Test Item Value Reference Range Interpretation Comments NA (test code = 137 mmol/L 135-145 2954718945) K (test code = 4.1 mmol/L 3.5-5.0 4201017205) CL (test code = 105 mmol/L 98-108 8591978953) CO2 TOTAL (test code = 27 mmol/L 23-31 9071063722) AGAP (test code = 5 2-16 1870738894) BUN (test code = 17 mg/dL 7-23 3105474112) GLUCOSE (test code = 135 mg/dL 70-110 H 7376763491) CREATININE (test code = 0.84 mg/dL 0.60-1.25 4341105663) CALCIUM (test code = 8.4 mg/dL 8.6-10.6 L 1922257841) eGFR (test code = 93.5 mL/min/1.73m2 5868979702) DEWAYNE (test code = DEWAYNE) Association of [...] tests). Lab Interpretation Abnormal (test code = 61189-9) [facility] WITH [id number] 12:02:32 Test Item Value Reference Range Interpretation Comments WBC (test code = 9.82 See_Comment [Automated 3040-2) message] The sy stem which generated this result transmitted reference range : 4.20 - 10.70 10*3/?L. The reference range was not used to interpret this result as normal/abnormal . RBC (test code = 3.82 See_Comment L [Automated 707-8) message] The sy stem which generated this [...] RDW-SD (test code = 46.6 fL 38.5-51.6 32318-9) RDW-CV (test code = 14.9 % 12.1-15.4 788-0) PLT (test code = 154 See_Comment [Automated 777-3) message] The sy stem which generated this result transmitted reference range : 150 - 328 10*3/ ?L. The reference r mitra was not used to interpret this result as normal/abnormal . MPV (test code = 9.5 fL 9.8-13.0 L 95348-5) NRBC/100 WBC (test 0.2 See_Comment [Automat ed code = 1521929753) message] The system which generated this result transmitted reference range : 0.0 - 10.0 /100 WBCs. The refer ence range was not u sed to interpret th is result as normal/abnormal . NRBC x10^3 (test code 0.02 See_Comment [Auto mated = 3534206067) message] The s ystem which generated this result transmitted reference range : 10*3/?L. The reference range was not used to interpret this result as normal/abnormal . GRAN MAT (NEUT) % 80.7 % (test code = 770-8) IMM GRAN % (test code 4.50 % = 4832412413) LYMPH % (test code = 6.5 % 736-9) MONO % (test code = 7.3 % 5905-5) EOS % (test code = 0.6 % 713-8) BASO % (test code = 0.4 % 706-2) GRAN MAT x10^3(ANC) 7.92 10*3/uL 1.99-6.95 H (test code = 6695614095) IMM GRAN x10^3 (test 0.44 10*3/uL 0.00-0.06 H code = 9390033871) LYMPH x10^3 (test code 0.64 10*3/uL 1.09-3.23 L = 731-0) MONO x10^3 (test code 0.72 10*3/uL 0.36-1.02 = 742-7) EOS x10^3 (test code = 0.06 10*3/uL 0.06-0.53 711-2) BASO x10^3 (test code 0.04 10*3/uL 0.01-0.09 = 704-7) MEAGHAN CELLS (test code 2+ See_Comment A [Auto mated = 7990-9) message] The sy stem which generated this result transmitted reference range : (none). The reference range was not used to interpret this result as normal/abnormal . REACT LYMPHS (test Rare code = 6565301829) Lab Interpretation Abnormal (test code = 42018-1) [facility] WITH [id number] 12:02:32 Test Item Value Reference Range Interpretation Comments WBC (test code = 9.82 See_Comment [Automated 8790-2) message] The sy stem which generated this result transmitted reference range : 4.20 - 10.70 10*3/?L. The reference range was not used to interpret this result as normal/abnormal . RBC (test code = 3.82 See_Comment L [Automated 599-8) message] The sy [...] RDW-SD (test code = 46.6 fL 38.5-51.6 47554-6) RDW-CV (test code = 14.9 % 12.1-15.4 788-0) PLT (test code = 154 See_Comment [Automated 967-3) message] The sy stem which generated this result transmitted reference range : 150 - 328 10*3/ ?L. The reference r mitra was not used to interpret this result as normal/abnormal . MPV (test code = 9.5 fL 9.8-13.0 L 78147-4) NRBC/100 WBC (test 0.2 See_Comment [Automat ed code = 1927461930) message] The system which generated this result transmitted reference range : 0.0 - 10.0 /100 WBCs. The refer ence range was not u sed to interpret th is result as normal/abnormal . NRBC x10^3 (test code 0.02 See_Comment [Auto mated = 6122121417) message] The s ystem which generated this result transmitted reference range : 10*3/?L. The reference range was not used to interpret this result as normal/abnormal . GRAN MAT (NEUT) % 80.7 % (test code = 770-8) IMM GRAN % (test code 4.50 % = 4718117897) LYMPH % (test code = 6.5 % 736-9) MONO % (test code = 7.3 % 5905-5) EOS % (test code = 0.6 % 713-8) BASO % (test code = 0.4 % 706-2) GRAN MAT x10^3(ANC) 7.92 10*3/uL 1.99-6.95 H (test code = 6354896855) IMM GRAN x10^3 (test 0.44 10*3/uL 0.00-0.06 H code = 2199608126) LYMPH x10^3 (test code 0.64 10*3/uL 1.09-3.23 L = 731-0) MONO x10^3 (test code 0.72 10*3/uL 0.36-1.02 = 742-7) EOS x10^3 (test code = 0.06 10*3/uL 0.06-0.53 711-2) BASO x10^3 (test code 0.04 10*3/uL 0.01-0.09 = 704-7) MEAGHAN CELLS (test code 2+ See_Comment A [Auto mated = 5231-4) message] The sy stem which generated this result transmitted reference range : (none). The reference range was not used to interpret this result as normal/abnormal . REACT LYMPHS (test Rare code = 2128678594) Lab Interpretation Abnormal (test code = 81863-9) [facility] WITH [id number] 12:02:32 Test Item Value Reference Range Interpretation [...] RDW-SD (test code = 46.6 fL 38.5-51.6 11664-4) RDW-CV (test code = 14.9 % 12.1-15.4 788-0) PLT (test code = 154 See_Comment [Automated 777-3) message] The sy stem which generated this result transmitted reference range : 150 - 328 10*3/ ?L. The reference r mitra was not used to interpret this result as normal/abnormal . MPV (test code = 9.5 fL 9.8-13.0 L 88012-2) NRBC/100 WBC (test 0.2 See_Comment [Automat ed code = 7247121201) message] The system which generated this result transmitted reference range : 0.0 - 10.0 /100 WBCs. The refer ence range was not u sed to interpret th is result as normal/abnormal . NRBC x10^3 (test code 0.02 See_Comment [Auto mated = 6876349711) message] The s ystem which generated this result transmitted reference range : 10*3/?L. The reference range was not used to interpret this result as normal/abnormal . GRAN MAT (NEUT) % 80.7 % (test code = 770-8) IMM GRAN % (test code 4.50 % = 5302636682) LYMPH % (test code = 6.5 % 736-9) MONO % (test code = 7.3 % 5905-5) EOS % (test code = 0.6 % 713-8) BASO % (test code = 0.4 % 706-2) GRAN MAT x10^3(ANC) 7.92 10*3/uL 1.99-6.95 H (test code = 2772972123) IMM GRAN x10^3 (test 0.44 10*3/uL 0.00-0.06 H code = 4795682005) LYMPH x10^3 (test code 0.64 10*3/uL 1.09-3.23 L = 731-0) MONO x10^3 (test code 0.72 10*3/uL 0.36-1.02 = 742-7) EOS x10^3 (test code = 0.06 10*3/uL 0.06-0.53 711-2) BASO x10^3 (test code 0.04 10*3/uL 0.01-0.09 = 704-7) MEAGHAN CELLS (test code 2+ See_Comment A [Auto mated = 6613-3) message] The sy stem which generated this result transmitted reference range : (none). The reference range was not used to interpret this result as normal/abnormal . REACT LYMPHS (test Rare code = 2695559358) Lab Interpretation Abnormal (test code = 59664-2) [facility] 11[facility]:29 Test Item Value Reference Range Interpretation Comments MAGNESIUM (test code = 9855441298) 2.1 mg/dL 1.7-2.4 Lab Interpretation (test code = Normal 46773-2) [facility] 11:43:29 Test Item Value Reference Range Interpretation Comments PHOSPHORUS (test code = 2343480595) 3.7 mg/dL 2.5-5.0 Lab Interpretation (test code = Normal 09292-5) [facility] METABOLIC PANEL (NA, K, CL, CO2, GLUCOSE, BUN, CREATININE, CA)2022-05-31 11:43:29 Test Item Value Reference Range Interpretation Comments NA (test code = 133 mmol/L 135-145 L 6160797295) K (test code = 4.7 mmol/L 3.5-5.0 Slight 8276014286) hemolysis CL (test code = 104 mmol/L 98-108 6044917181) CO2 TOTAL (test code 25 mmol/L 23-31 = 5389465381) AGAP (test code = 4 2-16 7174098653) BUN (test code = 17 mg/dL 7-23 Slight 2130800116) hemolysis GLUCOSE (test code = 189 mg/dL 70-110 H 4420655438) CREATININE (test code 0.82 mg/dL 0.60-1.25 = 3593849659) CALCIUM (test code = 8.0 mg/dL 8.6-10.6 L 4978100122) eGFR (test code = 96.2 mL/min/1.73m2 3739284247) DEWAYNE (test code = DEWAYNE) Association of [...] tests). Lab Interpretation Abnormal (test code = 54693-8) [facility] 11:43:29 Test Item Value Reference Range Interpretation Comments MAGNESIUM (test code = 2661725949) 2.1 mg/dL 1.7-2.4 Lab Interpretation (test code = Normal 29099-9) [facility] 11:43:29 Test Item Value Reference Range Interpretation Comments PHOSPHORUS (test code = 0819712912) 3.7 mg/dL 2.5-5.0 Lab Interpretation (test code = Normal 42459-2) [facility] (NA, K, CL, CO2, GLUCOSE, BUN, CREATININE, CA)2022-05-31 11:43:29 Test Item Value Reference Range Interpretation Comments NA (test code = 133 mmol/L 135-145 L 8911342975) K (test code = 4.7 mmol/L 3.5-5.0 Slight 8075728493) hemolysis CL (test code = 104 mmol/L 98-108 9546801455) CO2 TOTAL (test code 25 mmol/L 23-31 = 4678380082) AGAP (test code = 4 2-16 2875207474) BUN (test code = 17 mg/dL 7-23 Slight 9925045004) hemolysis GLUCOSE (test code = 189 mg/dL 70-110 H 3470823711) CREATININE (test code 0.82 mg/dL 0.60-1.25 = 0090415179) CALCIUM (test code = 8.0 mg/dL 8.6-10.6 L 6182131808) eGFR (test code = 96.2 mL/min/1.73m2 1342293879) DEWAYNE (test code = DEWAYNE) Association of [...] tests). Lab Interpretation Abnormal (test code = 90125-3) [facility] 11:43:29 Test Item Value Reference Range Interpretation Comments MAGNESIUM (test code = 7864019802) 2.1 mg/dL 1.7-2.4 Lab Interpretation (test code = Normal 36874-6) [facility] 11:43:29 Test Item Value Reference Range Interpretation Comments PHOSPHORUS (test code = 0832854268) 3.7 mg/dL 2.5-5.0 Lab Interpretation (test code = Normal 02694-9) [facility] (NA, K, CL, CO2, GLUCOSE, BUN, CREATININE, CA)2022-05-31 11:43:29 Test Item Value Reference Range Interpretation Comments NA (test code = 133 mmol/L 135-145 L 9577941990) K (test code = 4.7 mmol/L 3.5-5.0 Slight 5957923988) hemolysis CL (test code = 104 mmol/L 98-108 4170076529) CO2 TOTAL (test code 25 mmol/L 23-31 = 0884492816) AGAP (test code = 4 2-16 8055540929) BUN (test code = 17 mg/dL 7-23 Slight 2829154826) hemolysis GLUCOSE (test code = 189 mg/dL 70-110 H 3147714858) CREATININE (test code 0.82 mg/dL 0.60-1.25 = 3918197197) CALCIUM (test code = 8.0 mg/dL 8.6-10.6 L 2593068395) eGFR (test code = 96.2 mL/min/1.73m2 7036533746) DEWAYNE (test code = DEWAYNE) Association of [...] tests). Lab Interpretation Abnormal (test code = 37055-2) [facility] 11:30:44 Test Item Value Reference Range Interpretation Comments Fibrinogen (test code = 5675886199) 218 mg/dL 167-453 Lab Interpretation (test code = Normal 76558-3) [facility] 11:30:44 Test Item Value Reference Range Interpretation Comments Fibrinogen (test code = 8110257653) 218 mg/dL 167-453 Lab Interpretation (test code = Normal 28343-8) [facility] 11:30:44 Test Item Value Reference Range Interpretation Comments Fibrinogen (test code = 5657605749) 218 mg/dL 167-453 Lab Interpretation (test code = Normal 66467-3) [facility] / [id number] 11:29:02 Test Item Value Reference Range Interpretation Comments PROTIME PATIENT (test 12.7 See_Comment H [Auto mated message] code = 5964-2) The system [employer] generated this result transmitted ref erence range: 10.1 - 1 2.6 Seconds. The reference range was not used to int erpret this result as normal/abnormal . INR (test code = 6301-6) 1.1 Nor mal INR <1.1; Warfarin Therap eutic range 2.0 to 3. 0 or 2.5 to 3.5, dep ending upon the indica tions. Lab Interpretation (test Abnormal code = 07947-3) [facility] 11:29:02 Test Item Value Reference Range Interpretation Comments APTT Patient (test code 82 See_Comment H [Au tomated message] = 3173-2) The system [employer] generated this result transmitted ref erence range: 26 - 36 Seconds. The reference range was not used to int erpret this result as normal/abnormal . Lab Interpretation (test Abnormal code = 95105-9) [facility] / [id number] 11:29:02 Test Item Value Reference Range Interpretation Comments PROTIME PATIENT (test 12.7 See_Comment H [Auto mated message] code = 5964-2) The system [employer] generated this result transmitted ref erence range: 10.1 - 1 2.6 Seconds. The reference range was not used to int erpret this result as normal/abnormal . INR (test code = 6301-6) 1.1 Nor mal INR <1.1; Warfarin Therap eutic range 2.0 to 3. 0 or 2.5 to 3.5, dep ending upon the indica tions. Lab Interpretation (test Abnormal code = 50200-0) [facility] 11:29:02 Test Item Value Reference Range Interpretation Comments APTT Patient (test code 82 See_Comment H [Au tomated message] = 3173-2) The system [employer] generated this result transmitted ref erence range: 26 - 36 Seconds. The reference range was not used to int erpret this result as normal/abnormal . Lab Interpretation (test Abnormal code = 98912-2) [facility] / [id number] 11:29:02 Test Item Value Reference Range Interpretation Comments PROTIME PATIENT (test 12.7 See_Comment H [Auto mated message] code = 5964-2) The system [employer] generated this result transmitted ref erence range: 10.1 - 1 2.6 Seconds. The reference range was not used to int erpret this result as normal/abnormal . INR (test code = 6301-6) 1.1 Nor mal INR <1.1; Warfarin Therap eutic range 2.0 to 3. 0 or 2.5 to 3.5, dep ending upon the indica tions. Lab Interpretation (test Abnormal code = 71963-3) [facility] Test Item Value Reference Range Interpretation Comments APTT Patient (test code 82 See_Comment H [Au tomated message] = 3173-2) The system [employer] generated this result transmitted ref erence range: 26 - 36 Seconds. The reference range was not used to int erpret this result as normal/abnormal . Lab Interpretation (test Abnormal code = 61187-0) [facility] 02:12:17 Test Item Value Reference Range Interpretation Comments Fibrinogen (test code = 8720803746) 124 mg/dL 167-453 L Lab Interpretation (test code = Abnormal 98516-2) [facility] 02:12:17 Test Item Value Reference Range Interpretation Comments Fibrinogen (test code = 0704627022) 124 mg/dL 167-453 L Lab Interpretation (test code = Abnormal 51360-0) [facility]2023-04-18 02:12:17 Test Item Value Reference Range Interpretation Comments Fibrinogen (test code = [id number]) 124 mg/dL 167-453 L Lab Interpretation (test code = Abnormal 14822-2) [facility]2023-04-17 22:27:11 Test Item Value Reference Range Interpretation Comments Fibrinogen (test code = [id number]) 108 mg/dL 167-453 L Lab Interpretation (test code = Abnormal 19017-1) [facility]2023-04-17 22:27:11 Test Item Value Reference Range Interpretation Comments Fibrinogen (test code = [id number]) 108 mg/dL 167-453 L Lab Interpretation (test code = Abnormal 22255-4) [address]04-17 22:27:11 Test Item Value Reference Range Interpretation Comments Fibrinogen (test code = [id number]) 108 mg/dL 167-453 L Lab Interpretation (test code = Abnormal 36539-1) [facility] [facility] 18[facility]:36 Test Item Value Reference Range Interpretation Comments Fibrinogen (test code = 4809725411) 110 mg/dL 167-453 L Lab Interpretation (test code = Abnormal 63156-9) [facility]2023-04-17 18:54:36 Test Item Value Reference Range Interpretation Comments Fibrinogen (test code = 5693199816) 110 mg/dL 167-453 L Lab Interpretation (test code = Abnormal 11680-6) [facility]2023-04-17 18:54:36 Test Item Value Reference Range Interpretation Comments Fibrinogen (test code = 2800433792) 110 mg/dL 167-453 L Lab Interpretation (test code = Abnormal 71067-5) [facility]2023-04-17 18:54:36 Test Item Value Reference Range Interpretation Comments Fibrinogen (test code = 3179036281) 110 mg/dL 167-453 L Lab Interpretation (test code = Abnormal 24102-8) [address]04-17 15:54:43 Test Item Value Reference Range Interpretation Comments Fibrinogen (test code = 6331386269) 118 mg/dL 167-453 L Lab Interpretation (test code = Abnormal 70910-7) [facility]2023-04-17 15:54:43 Test Item Value Reference Range Interpretation Comments Fibrinogen (test code = 8658045862) 118 mg/dL 167-453 L Lab Interpretation (test code = Abnormal 72519-4) [facility]2023-04-17 15:54:43 Test Item Value Reference Range Interpretation Comments Fibrinogen (test code = 1499733329) 118 mg/dL 167-453 L Lab Interpretation (test code = Abnormal 71496-4) [facility]2023-04-17 15:54:43 Test Item Value Reference Range Interpretation Comments Fibrinogen (test code = 6344841645) 118 mg/dL 167-453 L Lab Interpretation (test code = Abnormal 57869-5) [facility]2023-04-17 13:43:27 Test Item Value Reference Range Interpretation Comments Fibrinogen (test code = 5739111912) 119 mg/dL 167-453 L Lab Interpretation (test code = Abnormal 78164-6) [facility]2023-04-17 13:43:27 Test Item Value Reference Range Interpretation Comments Fibrinogen (test code = 0562896097) 119 mg/dL 167-453 L Lab Interpretation (test code = Abnormal 89009-9) [facility]2023-04-17 13:43:27 Test Item Value Reference Range Interpretation Comments Fibrinogen (test code = 3154068422) 119 mg/dL 167-453 L Lab Interpretation (test code = Abnormal 74942-5) [facility]2023-04-17 13:43:27 Test Item Value Reference Range Interpretation Comments Fibrinogen (test code = 4550990915) 119 mg/dL 167-453 L Lab Interpretation (test code = Abnormal 56996-7) [address]04-17 11:50:10 Test Item Value Reference Range Interpretation Comments Fibrinogen (test code = 5123036735) 97 mg/dL 167-453 LL Lab Interpretation (test code = Abnormal 63790-6) [address]04-17 11:50:10 Test Item Value Reference Range Interpretation Comments Fibrinogen (test code = 7510783770) 97 mg/dL 167-453 LL Lab Interpretation (test code = Abnormal 01418-2) [facility] Test Item Value Reference Range Interpretation Comments Fibrinogen (test code = 2527688578) 97 mg/dL 167-453 LL Lab Interpretation (test code = Abnormal 40679-5) [facility] Test Item Value Reference Range Interpretation Comments Fibrinogen (test code = 1773849322) 97 mg/dL 167-453 LL Lab Interpretation (test code = Abnormal 19229-7) [facility] WITH [id number] 10:13:04 Test Item Value Reference Range Interpretation [...] RDW-SD (test code = 45.3 fL 38.5-51.6 69893-7) RDW-CV (test code = 14.5 % 12.1-15.4 788-0) PLT (test code = 174 See_Comment [Automated 777-3) message] The sy stem which generated this result transmitted reference range : 150 - 328 10*3/ ?L. The reference r mitra was not used to interpret this result as normal/abnormal . MPV (test code = 8.9 fL 9.8-13.0 L 48094-1) NRBC/100 WBC (test 0.3 See_Comment [Automat ed code = 7339051034) message] The system which generated this result transmitted reference range : 0.0 - 10.0 /100 WBCs. The refer ence range was not u sed to interpret th is result as normal/abnormal . NRBC x10^3 (test code 0.03 See_Comment [Auto mated = 6736897642) message] The s ystem which generated this result transmitted reference range : 10*3/?L. The reference range was not used to interpret this result as normal/abnormal . GRAN MAT (NEUT) % 63.0 % (test code = 770-8) IMM GRAN % (test code 3.60 % = 6661682343) LYMPH % (test code = 17.5 % 736-9) MONO % (test code = 10.8 % 5905-5) EOS % (test code = 4.5 % 713-8) BASO % (test code = 0.6 % 706-2) GRAN MAT x10^3(ANC) 5.89 10*3/uL 1.99-6.95 (test code = 4186381314) IMM GRAN x10^3 (test 0.34 10*3/uL 0.00-0.06 H code = 0981106328) LYMPH x10^3 (test code 1.64 10*3/uL 1.09-3.23 = 731-0) MONO x10^3 (test code 1.01 10*3/uL 0.36-1.02 = 742-7) EOS x10^3 (test code = 0.42 10*3/uL 0.06-0.53 711-2) BASO x10^3 (test code 0.06 10*3/uL 0.01-0.09 = 704-7) REACT LYMPHS (test Rare code = 3218248893) Lab Interpretation Abnormal (test code = 93321-4) [facility] WITH [id number] 10:13:04 Test Item Value Reference Range Interpretation [...] RDW-SD (test code = 45.3 fL 38.5-51.6 62289-9) RDW-CV (test code = 14.5 % 12.1-15.4 788-0) PLT (test code = 174 See_Comment [Automated 777-3) message] The sy stem which generated this result transmitted reference range : 150 - 328 10*3/ ?L. The reference r mitra was not used to interpret this result as normal/abnormal . MPV (test code = 8.9 fL 9.8-13.0 L 60512-0) NRBC/100 WBC (test 0.3 See_Comment [Automat ed code = 4832793138) message] The system which generated this result transmitted reference range : 0.0 - 10.0 /100 WBCs. The refer ence range was not u sed to interpret th is result as normal/abnormal . NRBC x10^3 (test code 0.03 See_Comment [Auto mated = 1752686790) message] The s ystem which generated this result transmitted reference range : 10*3/?L. The reference range was not used to interpret this result as normal/abnormal . GRAN MAT (NEUT) % 63.0 % (test code = 770-8) IMM GRAN % (test code 3.60 % = 6533142826) LYMPH % (test code = 17.5 % 736-9) MONO % (test code = 10.8 % 5905-5) EOS % (test code = 4.5 % 713-8) BASO % (test code = 0.6 % 706-2) GRAN MAT x10^3(ANC) 5.89 10*3/uL 1.99-6.95 (test code = 4182950464) IMM GRAN x10^3 (test 0.34 10*3/uL 0.00-0.06 H code = 0841751659) LYMPH x10^3 (test code 1.64 10*3/uL 1.09-3.23 = 731-0) MONO x10^3 (test code 1.01 10*3/uL 0.36-1.02 = 742-7) EOS x10^3 (test code = 0.42 10*3/uL 0.06-0.53 711-2) BASO x10^3 (test code 0.06 10*3/uL 0.01-0.09 = 704-7) REACT LYMPHS (test Rare code = 1289933647) Lab Interpretation Abnormal (test code = 44507-0) [facility] WITH [id number] 10:13:04 Test Item Value Reference Range Interpretation Comments WBC (test code = 9.36 See_Comment [Automated 0990-2) message] The sy stem which generated this result transmitted reference range : 4.20 - 10.70 10*3/?L. The reference range was not used to interpret this result as normal/abnormal . RBC (test code = 4.03 See_Comment L [Automated 719-8) message] The sy stem which generated this [...] RDW-SD (test code = 45.3 fL 38.5-51.6 73924-2) RDW-CV (test code = 14.5 % 12.1-15.4 788-0) PLT (test code = 174 See_Comment [Automated 777-3) message] The sy stem which generated this result transmitted reference range : 150 - 328 10*3/ ?L. The reference r mitra was not used to interpret this result as normal/abnormal . MPV (test code = 8.9 fL 9.8-13.0 L 22411-3) NRBC/100 WBC (test 0.3 See_Comment [Automat ed code = 4197126872) message] The system which generated this result transmitted reference range : 0.0 - 10.0 /100 WBCs. The refer ence range was not u sed to interpret th is result as normal/abnormal . NRBC x10^3 (test code 0.03 See_Comment [Auto mated = 8218459271) message] The s ystem which generated this result transmitted reference range : 10*3/?L. The reference range was not used to interpret this result as normal/abnormal . GRAN MAT (NEUT) % 63.0 % (test code = 770-8) IMM GRAN % (test code 3.60 % = 9237162603) LYMPH % (test code = 17.5 % 736-9) MONO % (test code = 10.8 % 5905-5) EOS % (test code = 4.5 % 713-8) BASO % (test code = 0.6 % 706-2) GRAN MAT x10^3(ANC) 5.89 10*3/uL 1.99-6.95 (test code = 6840400929) IMM GRAN x10^3 (test 0.34 10*3/uL 0.00-0.06 H code = 9160387339) LYMPH x10^3 (test code 1.64 10*3/uL 1.09-3.23 = 731-0) MONO x10^3 (test code 1.01 10*3/uL 0.36-1.02 = 742-7) EOS x10^3 (test code = 0.42 10*3/uL 0.06-0.53 711-2) BASO x10^3 (test code 0.06 10*3/uL 0.01-0.09 = 704-7) REACT LYMPHS (test Rare code = 7589357404) Lab Interpretation Abnormal (test code = 06324-1) [facility] WITH [id number] 10:13:04 Test Item Value Reference Range Interpretation [...] RDW-SD (test code = 45.3 fL 38.5-51.6 51173-8) RDW-CV (test code = 14.5 % 12.1-15.4 788-0) PLT (test code = 174 See_Comment [Automated 777-3) message] The sy stem which generated this result transmitted reference range : 150 - 328 10*3/ ?L. The reference r mitra was not used to interpret this result as normal/abnormal . MPV (test code = 8.9 fL 9.8-13.0 L 70643-7) NRBC/100 WBC (test 0.3 See_Comment [Automat ed code = 4690010251) message] The system which generated this result transmitted reference range : 0.0 - 10.0 /100 WBCs. The refer ence range was not u sed to interpret th is result as normal/abnormal . NRBC x10^3 (test code 0.03 See_Comment [Auto mated = 6308457295) message] The s ystem which generated this result transmitted reference range : 10*3/?L. The reference range was not used to interpret this result as normal/abnormal . GRAN MAT (NEUT) % 63.0 % (test code = 770-8) IMM GRAN % (test code 3.60 % = 7589628170) LYMPH % (test code = 17.5 % 736-9) MONO % (test code = 10.8 % 5905-5) EOS % (test code = 4.5 % 713-8) BASO % (test code = 0.6 % 706-2) GRAN MAT x10^3(ANC) 5.89 10*3/uL 1.99-6.95 (test code = 9724900599) IMM GRAN x10^3 (test 0.34 10*3/uL 0.00-0.06 H code = 1920352542) LYMPH x10^3 (test code 1.64 10*3/uL 1.09-3.23 = 731-0) MONO x10^3 (test code 1.01 10*3/uL 0.36-1.02 = 742-7) EOS x10^3 (test code = 0.42 10*3/uL 0.06-0.53 711-2) BASO x10^3 (test code 0.06 10*3/uL 0.01-0.09 = 704-7) REACT LYMPHS (test Rare code = 0889302578) Lab Interpretation Abnormal (test code = 81894-6) [facility] Test Item Value Reference Range Interpretation Comments PHOSPHORUS (test code = 4296469910) 4.2 mg/dL 2.5-5.0 Lab Interpretation (test code = Normal 59670-6) [facility] 10:10:03 Test Item Value Reference Range Interpretation Comments MAGNESIUM (test code = 6617739135) 2.0 mg/dL 1.7-2.4 Lab Interpretation (test code = Normal 83733-2) [facility] (NA, K, CL, CO2, GLUCOSE, BUN, CREATININE, CA)2022-05-30 10:10:03 Test Item Value Reference Range Interpretation Comments NA (test code = 133 mmol/L 135-145 L 4975426058) K (test code = 3.9 mmol/L 3.5-5.0 1860647040) CL (test code = 103 mmol/L 98-108 9966696762) CO2 TOTAL (test code = 25 mmol/L 23-31 2079259767) AGAP (test code = 5 2-16 6523329224) BUN (test code = 22 mg/dL 7-23 7823950871) GLUCOSE (test code = 128 mg/dL 70-110 H 4018390784) CREATININE (test code = 0.87 mg/dL 0.60-1.25 8744758539) CALCIUM (test code = 8.2 mg/dL 8.6-10.6 L 1713597983) eGFR (test code = 89.8 mL/min/1.73m2 8774908707) DEWAYNE (test code = DEWAYNE) Association of [...] tests). Lab Interpretation Abnormal (test code = 68868-5) [facility] 10:10:03 Test Item Value Reference Range Interpretation Comments PHOSPHORUS (test code = 3240115594) 4.2 mg/dL 2.5-5.0 Lab Interpretation (test code = Normal 54401-3) [facility] 10:10:03 Test Item Value Reference Range Interpretation Comments MAGNESIUM (test code = 8818793654) 2.0 mg/dL 1.7-2.4 Lab Interpretation (test code = Normal 17232-2) [facility] (NA, K, CL, CO2, GLUCOSE, BUN, CREATININE, CA)2022-05-30 10:10:03 Test Item Value Reference Range Interpretation Comments NA (test code = 133 mmol/L 135-145 L 9325006521) K (test code = 3.9 mmol/L 3.5-5.0 7199922328) CL (test code = 103 mmol/L 98-108 7643783652) CO2 TOTAL (test code = 25 mmol/L 23-31 6299946161) AGAP (test code = 5 2-16 3921338622) BUN (test code = 22 mg/dL 7-23 2547371670) GLUCOSE (test code = 128 mg/dL 70-110 H 1528503910) CREATININE (test code = 0.87 mg/dL 0.60-1.25 3653080466) CALCIUM (test code = 8.2 mg/dL 8.6-10.6 L 3038133422) eGFR (test code = 89.8 mL/min/1.73m2 0650015975) DEWAYNE (test code = DEWAYNE) Association of [...] tests). Lab Interpretation Abnormal (test code = 72945-6) [facility] 10:10:03 Test Item Value Reference Range Interpretation Comments PHOSPHORUS (test code = 7734115825) 4.2 mg/dL 2.5-5.0 Lab Interpretation (test code = Normal 10908-3) [facility] 10:10:03 Test Item Value Reference Range Interpretation Comments MAGNESIUM (test code = 9127197112) 2.0 mg/dL 1.7-2.4 Lab Interpretation (test code = Normal 09856-6) [facility] (NA, K, CL, CO2, GLUCOSE, BUN, CREATININE, CA)2022-05-30 10:10:03 Test Item Value Reference Range Interpretation Comments NA (test code = 133 mmol/L 135-145 L 9303958252) K (test code = 3.9 mmol/L 3.5-5.0 8739804208) CL (test code = 103 mmol/L 98-108 8014197339) CO2 TOTAL (test code = 25 mmol/L 23-31 0424059565) AGAP (test code = 5 2-16 0201948029) BUN (test code = 22 mg/dL 7-23 8807511811) GLUCOSE (test code = 128 mg/dL 70-110 H 3761297359) CREATININE (test code = 0.87 mg/dL 0.60-1.25 6524609566) CALCIUM (test code = 8.2 mg/dL 8.6-10.6 L 1432326310) eGFR (test code = 89.8 mL/min/1.73m2 3748211288) DEWAYNE (test code = DEWAYNE) Association of [...] tests). Lab Interpretation Abnormal (test code = 09192-0) [facility] 10:10:03 Test Item Value Reference Range Interpretation Comments PHOSPHORUS (test code = 7804259939) 4.2 mg/dL 2.5-5.0 Lab Interpretation (test code = Normal 86143-2) [facility] 10:10:03 Test Item Value Reference Range Interpretation Comments MAGNESIUM (test code = 1306824448) 2.0 mg/dL 1.7-2.4 Lab Interpretation (test code = Normal 83267-3) [facility] (NA, K, CL, CO2, GLUCOSE, BUN, CREATININE, CA)2022-05-30 10:10:03 Test Item Value Reference Range Interpretation Comments NA (test code = 133 mmol/L 135-145 L 8386593277) K (test code = 3.9 mmol/L 3.5-5.0 8133157685) CL (test code = 103 mmol/L 98-108 8160648816) CO2 TOTAL (test code = 25 mmol/L 23-31 8619860381) AGAP (test code = 5 2-16 4201956512) BUN (test code = 22 mg/dL 7-23 8554234673) GLUCOSE (test code = 128 mg/dL 70-110 H 2508569962) CREATININE (test code = 0.87 mg/dL 0.60-1.25 6460612849) CALCIUM (test code = 8.2 mg/dL 8.6-10.6 L 9045079138) eGFR (test code = 89.8 mL/min/1.73m2 2193010924) DEWAYNE (test code = DEWAYNE) Association of [...] tests). Lab Interpretation Abnormal (test code = 87445-2) [facility]2023-04-17 09:52:38 Test Item Value Reference Range Interpretation Comments Fibrinogen (test code = 7275399199) 86 mg/dL 167-453 LL Lab Interpretation (test code = Abnormal 84387-2) [facility]2023-04-17 09:52:38 Test Item Value Reference Range Interpretation Comments Fibrinogen (test code = 0846806725) 86 mg/dL 167-453 LL Lab Interpretation (test code = Abnormal 64702-6) [facility]2023-04-17 09:52:38 Test Item Value Reference Range Interpretation Comments Fibrinogen (test code = 0513032073) 86 mg/dL 167-453 LL Lab Interpretation (test code = Abnormal 69220-4) [facility]2023-04-17 09:52:38 Test Item Value Reference Range Interpretation Comments Fibrinogen (test code = 6474134224) 86 mg/dL 167-453 LL Lab Interpretation (test code = Abnormal 22106-6) [place] 42309023-04-17 09:51:57 Test Item Value Reference Range Interpretation Comments APTT Patient (test code 44 See_Comment H [Au tomated message] = 3173-2) The system [employer] generated this result transmitted ref erence range: 26 - 36 Seconds. The reference range was not used to int erpret this result as normal/abnormal . Lab Interpretation (test Abnormal code = 98367-1) [place] 42309023-04-17 09:51:57 Test Item Value Reference Range Interpretation Comments APTT Patient (test code 44 See_Comment H [Au tomated message] = 3173-2) The system [employer] generated this result transmitted ref erence range: 26 - 36 Seconds. The reference range was not used to int erpret this result as normal/abnormal . Lab Interpretation (test Abnormal code = 17846-0) [place] 42309023-04-17 09:51:57 Test Item Value Reference Range Interpretation Comments APTT Patient (test code 44 See_Comment H [Au tomated message] = 3173-2) The system [employer] generated this result transmitted ref erence range: 26 - 36 Seconds. The reference range was not used to int erpret this result as normal/abnormal . Lab Interpretation (test Abnormal code = 33220-8) [place] 42309023-04-17 09:51:57 Test Item Value Reference Range Interpretation Comments APTT Patient (test code 44 See_Comment H [Au tomated message] = 3173-2) The system [employer] generated this result transmitted ref erence range: 26 - 36 Seconds. The reference range was not used to int erpret this result as normal/abnormal . Lab Interpretation (test Abnormal code = 04223-8) [facility] Test Item Value Reference Range Interpretation Comments Fibrinogen (test code = 7361541106) 73 mg/dL 167-453 LL Lab Interpretation (test code = Abnormal 48637-3) [facility]2023-04-17 07:28:55 Test Item Value Reference Range Interpretation Comments Fibrinogen (test code = 6758122697) 73 mg/dL 167-453 LL Lab Interpretation (test code = Abnormal 08469-5) [facility] 07:28:55 Test Item Value Reference Range Interpretation Comments Fibrinogen (test code = 6597382594) 73 mg/dL 167-453 LL Lab Interpretation (test code = Abnormal 44623-0) [facility] 07:28:55 Test Item Value Reference Range Interpretation Comments Fibrinogen (test code = 8705721816) 73 mg/dL 167-453 LL Lab Interpretation (test code = Abnormal 23934-6) [facility] (for use with Heparin Drip)2022-05-30 06:39:14 Test Item Value Reference Range Interpretation Comments APTT Patient (test code 44 See_Comment H [Au tomated message] = 3173-2) The system [employer] generated this result transmitted ref erence range: 26 - 36 Seconds. The reference range was not used to int erpret this result as normal/abnormal . Lab Interpretation (test Abnormal code = 78455-9) [facility] (for use with Heparin Drip)2022-05-30 06:39:14 Test Item Value Reference Range Interpretation Comments APTT Patient (test code 44 See_Comment H [Au tomated message] = 3173-2) The system [employer] generated this result transmitted ref erence range: 26 - 36 Seconds. The reference range was not used to int erpret this result as normal/abnormal . Lab Interpretation (test Abnormal code = 13361-9) [facility] (for use with Heparin Drip)2022-05-30 06:39:14 Test Item Value Reference Range Interpretation Comments APTT Patient (test code 44 See_Comment H [Au tomated message] = 3173-2) The system [employer] generated this result transmitted ref erence range: 26 - 36 Seconds. The reference range was not used to int erpret this result as normal/abnormal . Lab Interpretation (test Abnormal code = 72645-5) [facility] (for use with Heparin Drip)2022-05-30 06:39:14 Test Item Value Reference Range Interpretation Comments APTT Patient (test code 44 See_Comment H [Au tomated message] = 3173-2) The system [employer] generated this result transmitted ref erence range: 26 - 36 Seconds. The reference range was not used to int erpret this result as normal/abnormal . Lab Interpretation (test Abnormal code = 32576-9) [facility] 05:26:04 Test Item Value Reference Range Interpretation Comments Fibrinogen (test code = 7952115122) 71 mg/dL 167-453 LL Lab Interpretation (test code = Abnormal 13846-6) [facility] 05:26:04 Test Item Value Reference Range Interpretation Comments Fibrinogen (test code = 3427645633) 71 mg/dL 167-453 LL Lab Interpretation (test code = Abnormal 43092-7) [facility]2023-04-17 05:26:04 Test Item Value Reference Range Interpretation Comments Fibrinogen (test code = 6669476769) 71 mg/dL 167-453 LL Lab Interpretation (test code = Abnormal 19499-2) [facility]2023-04-17 05:26:04 Test Item Value Reference Range Interpretation Comments Fibrinogen (test code = 1460735282) 71 mg/dL 167-453 LL Lab Interpretation (test code = Abnormal 44746-3) [facility]2023-04-16 23:49:05 Test Item Value Reference Range Interpretation Comments Fibrinogen (test code = 7505596496) 98 mg/dL 167-453 LL Lab Interpretation (test code = Abnormal 23217-0) [facility]2023-04-16 23:49:05 Test Item Value Reference Range Interpretation Comments Fibrinogen (test code = 9606284966) 98 mg/dL 167-453 LL Lab Interpretation (test code = Abnormal 06736-5) [facility]2023-04-16 23:49:05 Test Item Value Reference Range Interpretation Comments Fibrinogen (test code = 5475286563) 98 mg/dL 167-453 LL Lab Interpretation (test code = Abnormal 14281-6) [facility]2023-04-16 23:49:05 Test Item Value Reference Range Interpretation Comments Fibrinogen (test code = 8352946673) 98 mg/dL 167-453 LL Lab Interpretation (test code = Abnormal 64028-1) [facility]2023-04-16 21:48:37 Test Item Value Reference Range Interpretation Comments Fibrinogen (test code = 0994386139) 113 mg/dL 167-453 L Lab Interpretation (test code = Abnormal 99911-4) [facility]2023-04-16 21:48:37 Test Item Value Reference Range Interpretation Comments Fibrinogen (test code = 6415763112) 113 mg/dL 167-453 L Lab Interpretation (test code = Abnormal 84426-9) [facility]2023-04-16 21:48:37 Test Item Value Reference Range Interpretation Comments Fibrinogen (test code = 5715860149) 113 mg/dL 167-453 L Lab Interpretation (test code = Abnormal 96521-5) [facility] 21:48:37 Test Item Value Reference Range Interpretation Comments Fibrinogen (test code = 2763573947) 113 mg/dL 167-453 L Lab Interpretation (test code = Abnormal 69694-4) [facility] (NA, K, CL, CO2, GLUCOSE, BUN, CREATININE, CA)2022-05-29 15:33:06 Test Item Value Reference Range Interpretation Comments NA (test code = 139 mmol/L 135-145 0828608558) K (test code = 4.2 mmol/L 3.5-5.0 3585579751) CL (test code = 104 mmol/L 98-108 1221820103) CO2 TOTAL (test code = 29 mmol/L 23-31 1923779872) AGAP (test code = 6 2-16 2222030936) BUN (test code = 25 mg/dL 7-23 H 6922319327) GLUCOSE (test code = 85 mg/dL 70-110 4672569525) CREATININE (test code = 1.02 mg/dL 0.60-1.25 2666264828) CALCIUM (test code = 8.7 mg/dL 8.6-10.6 5430713248) eGFR (test code = 74.8 mL/min/1.73m2 4904694940) DEWAYNE (test code = DEWAYNE) Association of [...] tests). Lab Interpretation Abnormal (test code = 19894-9) [facility] METABOLIC PANEL (NA, K, CL, CO2, GLUCOSE, BUN, CREATININE, CA)2022-05-29 15:33:06 Test Item Value Reference Range Interpretation Comments NA (test code = 139 mmol/L 135-145 5913475558) K (test code = 4.2 mmol/L 3.5-5.0 5866685074) CL (test code = 104 mmol/L 98-108 8752223047) CO2 TOTAL (test code = 29 mmol/L 23-31 8586946899) AGAP (test code = 6 2-16 9835564161) BUN (test code = 25 mg/dL 7-23 H 6286083444) GLUCOSE (test code = 85 mg/dL 70-110 4920922894) CREATININE (test code = 1.02 mg/dL 0.60-1.25 8014293975) CALCIUM (test code = 8.7 mg/dL 8.6-10.6 8386796063) eGFR (test code = 74.8 mL/min/1.73m2 4731476083) DEWAYNE (test code = DEWAYNE) Association of [...] tests). Lab Interpretation Abnormal (test code = 10915-7) [facility] METABOLIC PANEL (NA, K, CL, CO2, GLUCOSE, BUN, CREATININE, CA)2022-05-29 15:33:06 Test Item Value Reference Range Interpretation Comments NA (test code = 139 mmol/L 135-145 6202853511) K (test code = 4.2 mmol/L 3.5-5.0 4361339225) CL (test code = 104 mmol/L 98-108 0946829474) CO2 TOTAL (test code = 29 mmol/L 23-31 7148882100) AGAP (test code = 6 2-16 2825601345) BUN (test code = 25 mg/dL 7-23 H 2566422911) GLUCOSE (test code = 85 mg/dL 70-110 3389403081) CREATININE (test code = 1.02 mg/dL 0.60-1.25 1449412180) CALCIUM (test code = 8.7 mg/dL 8.6-10.6 7078140058) eGFR (test code = 74.8 mL/min/1.73m2 2802269518) DEWAYNE (test code = DEWAYNE) Association of [...] tests). Lab Interpretation Abnormal (test code = 59914-4) [facility] METABOLIC PANEL (NA, K, CL, CO2, GLUCOSE, BUN, CREATININE, CA)2022-05-29 15:33:06 Test Item Value Reference Range Interpretation Comments NA (test code = 139 mmol/L 135-145 7627500541) K (test code = 4.2 mmol/L 3.5-5.0 6878493664) CL (test code = 104 mmol/L 98-108 0673859639) CO2 TOTAL (test code = 29 mmol/L 23-31 1633171530) AGAP (test code = 6 2-16 5258089393) BUN (test code = 25 mg/dL 7-23 H 6363089549) GLUCOSE (test code = 85 mg/dL 70-110 5351265453) CREATININE (test code = 1.02 mg/dL 0.60-1.25 3731317455) CALCIUM (test code = 8.7 mg/dL 8.6-10.6 6099294367) eGFR (test code = 74.8 mL/min/1.73m2 9527817786) DEWAYNE (test code = DEWAYNE) Association of [...] tests). Lab Interpretation Abnormal (test code = 05842-9) [facility]2023-04-16 15:15:42 Test Item Value Reference Range Interpretation Comments Fibrinogen (test code = 3231449710) 368 mg/dL 167-453 Lab Interpretation (test code = Normal 39363-2) [facility] Test Item Value Reference Range Interpretation Comments Fibrinogen (test code = 3615749306) 368 mg/dL 167-453 Lab Interpretation (test code = Normal 78510-6) [facility] Test Item Value Reference Range Interpretation Comments Fibrinogen (test code = 6835759866) 368 mg/dL 167-453 Lab Interpretation (test code = Normal 99949-8) [facility]2023-04-16 15:15:42 Test Item Value Reference Range Interpretation Comments Fibrinogen (test code = 3482550529) 368 mg/dL 167-453 Lab Interpretation (test code = Normal 67042-9) [facility] WITH [id number] 15:09:40 Test Item Value Reference Range Interpretation [...] RDW-SD (test code = 47.6 fL 38.5-51.6 00032-9) RDW-CV (test code = 14.7 % 12.1-15.4 788-0) PLT (test code = 252 See_Comment [Automated 777-3) message] The sy stem which generated this result transmitted reference range : 150 - 328 10*3/ ?L. The reference r mitra was not used to interpret this result as normal/abnormal . MPV (test code = 9.1 fL 9.8-13.0 L 35148-3) NRBC/100 WBC (test 0.0 See_Comment [Automat ed code = 2660025693) message] The system which generated this result transmitted reference range : 0.0 - 10.0 /100 WBCs. The refer ence range was not u sed to interpret th is result as normal/abnormal . NRBC x10^3 (test code See_Comment [Auto mated = 2421446231) message] The s ystem which generated this result transmitted reference range : 10*3/?L. The reference range was not used to interpret this result as normal/abnormal . GRAN MAT (NEUT) % 53.7 % (test code = 770-8) IMM GRAN % (test code 1.90 % = 2677416155) LYMPH % (test code = 29.6 % 736-9) MONO % (test code = 8.1 % 5905-5) EOS % (test code = 5.7 % 713-8) BASO % (test code = 1.0 % 706-2) GRAN MAT x10^3(ANC) 4.44 10*3/uL 1.99-6.95 (test code = 6783851210) IMM GRAN x10^3 (test 0.16 10*3/uL 0.00-0.06 H code = 4535594044) LYMPH x10^3 (test code 2.45 10*3/uL 1.09-3.23 = 731-0) MONO x10^3 (test code 0.67 10*3/uL 0.36-1.02 = 742-7) EOS x10^3 (test code = 0.47 10*3/uL 0.06-0.53 711-2) BASO x10^3 (test code 0.08 10*3/uL 0.01-0.09 = 704-7) Lab Interpretation Abnormal (test code = 04363-8) [facility] WITH [id number] 15:09:40 Test Item Value Reference Range Interpretation Comments WBC (test code = 8.27 See_Comment [Automated 1690-2) message] The sy stem which generated this result transmitted reference range : 4.20 - 10.70 10*3/?L. The reference range was not used to interpret this result as normal/abnormal . RBC (test code = 4.18 See_Comment L [Automated 729-8) message] The sy [...] RDW-SD (test code = 47.6 fL 38.5-51.6 61484-8) RDW-CV (test code = 14.7 % 12.1-15.4 788-0) PLT (test code = 252 See_Comment [Automated 777-3) message] The sy stem which generated this result transmitted reference range : 150 - 328 10*3/ ?L. The reference r mitra was not used to interpret this result as normal/abnormal . MPV (test code = 9.1 fL 9.8-13.0 L 41757-1) NRBC/100 WBC (test 0.0 See_Comment [Automat ed code = 5351493107) message] The system which generated this result transmitted reference range : 0.0 - 10.0 /100 WBCs. The refer ence range was not u sed to interpret th is result as normal/abnormal . NRBC x10^3 (test code See_Comment [Auto mated = 6992125621) message] The s ystem which generated this result transmitted reference range : 10*3/?L. The reference range was not used to interpret this result as normal/abnormal . GRAN MAT (NEUT) % 53.7 % (test code = 770-8) IMM GRAN % (test code 1.90 % = 9523081663) LYMPH % (test code = 29.6 % 736-9) MONO % (test code = 8.1 % 5905-5) EOS % (test code = 5.7 % 713-8) BASO % (test code = 1.0 % 706-2) GRAN MAT x10^3(ANC) 4.44 10*3/uL 1.99-6.95 (test code = 5425410201) IMM GRAN x10^3 (test 0.16 10*3/uL 0.00-0.06 H code = 4684150324) LYMPH x10^3 (test code 2.45 10*3/uL 1.09-3.23 = 731-0) MONO x10^3 (test code 0.67 10*3/uL 0.36-1.02 = 742-7) EOS x10^3 (test code = 0.47 10*3/uL 0.06-0.53 711-2) BASO x10^3 (test code 0.08 10*3/uL 0.01-0.09 = 704-7) Lab Interpretation Abnormal (test code = 62564-2) [facility] WITH [id number] 15:09:40 Test Item Value Reference Range Interpretation Comments WBC (test code = 8.27 See_Comment [Automated 5890-2) message] The sy stem which generated this result transmitted reference range : 4.20 - 10.70 10*3/?L. The reference range was not used to interpret this result as normal/abnormal . RBC (test code = 4.18 See_Comment L [Automated 549-8) message] The sy [...] RDW-SD (test code = 47.6 fL 38.5-51.6 35223-4) RDW-CV (test code = 14.7 % 12.1-15.4 788-0) PLT (test code = 252 See_Comment [Automated 797-3) message] The sy stem which generated this result transmitted reference range : 150 - 328 10*3/ ?L. The reference r mitra was not used to interpret this result as normal/abnormal . MPV (test code = 9.1 fL 9.8-13.0 L 68794-2) NRBC/100 WBC (test 0.0 See_Comment [Automat ed code = 6950074717) message] The system which generated this result transmitted reference range : 0.0 - 10.0 /100 WBCs. The refer ence range was not u sed to interpret th is result as normal/abnormal . NRBC x10^3 (test code See_Comment [Auto mated = 6522992600) message] The s ystem which generated this result transmitted reference range : 10*3/?L. The reference range was not used to interpret this result as normal/abnormal . GRAN MAT (NEUT) % 53.7 % (test code = 770-8) IMM GRAN % (test code 1.90 % = 0994855578) LYMPH % (test code = 29.6 % 736-9) MONO % (test code = 8.1 % 5905-5) EOS % (test code = 5.7 % 713-8) BASO % (test code = 1.0 % 706-2) GRAN MAT x10^3(ANC) 4.44 10*3/uL 1.99-6.95 (test code = 0256919845) IMM GRAN x10^3 (test 0.16 10*3/uL 0.00-0.06 H code = 8647624342) LYMPH x10^3 (test code 2.45 10*3/uL 1.09-3.23 = 731-0) MONO x10^3 (test code 0.67 10*3/uL 0.36-1.02 = 742-7) EOS x10^3 (test code = 0.47 10*3/uL 0.06-0.53 711-2) BASO x10^3 (test code 0.08 10*3/uL 0.01-0.09 = 704-7) Lab Interpretation Abnormal (test code = 64210-5) [facility] WITH [id number] 15:09:40 Test Item Value Reference Range Interpretation [...] RDW-SD (test code = 47.6 fL 38.5-51.6 71879-9) RDW-CV (test code = 14.7 % 12.1-15.4 788-0) PLT (test code = 252 See_Comment [Automated 777-3) message] The sy stem which generated this result transmitted reference range : 150 - 328 10*3/ ?L. The reference r mitra was not used to interpret this result as normal/abnormal . MPV (test code = 9.1 fL 9.8-13.0 L 05107-1) NRBC/100 WBC (test 0.0 See_Comment [Automat ed code = 3349189845) message] The system which generated this result transmitted reference range : 0.0 - 10.0 /100 WBCs. The refer ence range was not u sed to interpret th is result as normal/abnormal . NRBC x10^3 (test code See_Comment [Auto mated = 4527159403) message] The s ystem which generated this result transmitted reference range : 10*3/?L. The reference range was not used to interpret this result as normal/abnormal . GRAN MAT (NEUT) % 53.7 % (test code = 770-8) IMM GRAN % (test code 1.90 % = 9096695757) LYMPH % (test code = 29.6 % 736-9) MONO % (test code = 8.1 % 5905-5) EOS % (test code = 5.7 % 713-8) BASO % (test code = 1.0 % 706-2) GRAN MAT x10^3(ANC) 4.44 10*3/uL 1.99-6.95 (test code = 0528332896) IMM GRAN x10^3 (test 0.16 10*3/uL 0.00-0.06 H code = 9462888632) LYMPH x10^3 (test code 2.45 10*3/uL 1.09-3.23 = 731-0) MONO x10^3 (test code 0.67 10*3/uL 0.36-1.02 = 742-7) EOS x10^3 (test code = 0.47 10*3/uL 0.06-0.53 711-2) BASO x10^3 (test code 0.08 10*3/uL 0.01-0.09 = 704-7) Lab Interpretation Abnormal (test code = 07919-6) [facility] (for use with Heparin Infusion)2022-05-29 11:36:15 Test Item Value Reference Range Interpretation Comments APTT Patient (test code 52 See_Comment H [Au tomated message] = 3173-2) The system [employer] generated this result transmitted ref erence range: 26 - 36 Seconds. The reference range was not used to int erpret this result as normal/abnormal . Lab Interpretation (test Abnormal code = 87732-9) [facility] (for use with Heparin Infusion)2022-05-29 11:36:15 Test Item Value Reference Range Interpretation Comments APTT Patient (test code 52 See_Comment H [Au tomated message] = 3173-2) The system [employer] generated this result transmitted ref erence range: 26 - 36 Seconds. The reference range was not used to int erpret this result as normal/abnormal . Lab Interpretation (test Abnormal code = 64401-9) [facility] (for use with Heparin Infusion)2022-05-29 11:36:15 Test Item Value Reference Range Interpretation Comments APTT Patient (test code 52 See_Comment H [Au tomated message] = 3173-2) The system [employer] generated this result transmitted ref erence range: 26 - 36 Seconds. The reference range was not used to int erpret this result as normal/abnormal . Lab Interpretation (test Abnormal code = 24719-2) [facility] 11:36:15 Test Item Value Reference Range Interpretation Comments APTT Patient (test code 52 See_Comment H [Au tomated message] = 5573-2) The system [employer] generated this result transmitted ref erence range: 26 - 36 Seconds. The reference range was not used to int erpret this result as normal/abnormal . Lab Interpretation (test Abnormal code = 60639-0) [facility] METABOLIC PANEL (NA, K, CL, CO2, GLUCOSE, BUN, CREATININE, CA)2022-05-29 11:35:55 Test Item Value Reference Range Interpretation Comments NA (test code = 136 mmol/L 135-145 3315756221) K (test code = 4.9 mmol/L 3.5-5.0 Slight 7811710064) hemolysis CL (test code = 106 mmol/L 98-108 7273921215) CO2 TOTAL (test code 28 mmol/L 23-31 = 0521031439) AGAP (test code = 2 2-16 7594389831) BUN (test code = 26 mg/dL 7-23 H Slight 9788702777) hemolysis GLUCOSE (test code = 88 mg/dL 70-110 1922850716) CREATININE (test code 0.86 mg/dL 0.60-1.25 = 6104991819) CALCIUM (test code = 8.4 mg/dL 8.6-10.6 L 0686639554) eGFR (test code = 91.0 mL/min/1.73m2 5907409686) DEWAYNE (test code = DEWAYNE) Association of [...] tests). Lab Interpretation Abnormal (test code = 50833-3) [facility] 11:[facility]55 Test Item Value Reference Range Interpretation Comments MAGNESIUM (test code = 1386194889) 2.4 mg/dL 1.7-2.4 Lab Interpretation (test code = Normal 77620-7) [facility] (NA, K, CL, CO2, GLUCOSE, BUN, CREATININE, CA)2022-05-29 11:35:55 Test Item Value Reference Range Interpretation Comments NA (test code = 136 mmol/L 135-145 9908015625) K (test code = 4.9 mmol/L 3.5-5.0 Slight 8296828185) hemolysis CL (test code = 106 mmol/L 98-108 5317588351) CO2 TOTAL (test code 28 mmol/L 23-31 = 5437235078) AGAP (test code = 2 2-16 7141453853) BUN (test code = 26 mg/dL 7-23 H Slight 8024311808) hemolysis GLUCOSE (test code = 88 mg/dL 70-110 8298416101) CREATININE (test code 0.86 mg/dL 0.60-1.25 = 0972724074) CALCIUM (test code = 8.4 mg/dL 8.6-10.6 L 0648191004) eGFR (test code = 91.0 mL/min/1.73m2 0714057449) DEWAYNE (test code = DEWAYNE) Association of [...] tests). Lab Interpretation Abnormal (test code = 51747-7) [facility] 11:35:55 Test Item Value Reference Range Interpretation Comments MAGNESIUM (test code = 9339839526) 2.4 mg/dL 1.7-2.4 Lab Interpretation (test code = Normal 71931-3) [facility] (NA, K, CL, CO2, GLUCOSE, BUN, CREATININE, CA)2022-05-29 11:35:55 Test Item Value Reference Range Interpretation Comments NA (test code = 136 mmol/L 135-145 5510738381) K (test code = 4.9 mmol/L 3.5-5.0 Slight 2120246861) hemolysis CL (test code = 106 mmol/L 98-108 1607568999) CO2 TOTAL (test code 28 mmol/L 23-31 = 6219461559) AGAP (test code = 2 2-16 0805864854) BUN (test code = 26 mg/dL 7-23 H Slight 9127343972) hemolysis GLUCOSE (test code = 88 mg/dL 70-110 0344257778) CREATININE (test code 0.86 mg/dL 0.60-1.25 = 0325970664) CALCIUM (test code = 8.4 mg/dL 8.6-10.6 L 2761652264) eGFR (test code = 91.0 mL/min/1.73m2 6693045765) DEWAYNE (test code = DEWAYNE) Association of [...] tests). Lab Interpretation Abnormal (test code = 63600-6) [facility] Test Item Value Reference Range Interpretation Comments MAGNESIUM (test code = 3278264463) 2.4 mg/dL 1.7-2.4 Lab Interpretation (test code = Normal 62305-2) [facility] METABOLIC PANEL (NA, K, CL, CO2, GLUCOSE, BUN, CREATININE, CA)2022-05-29 11:35:55 Test Item Value Reference Range Interpretation Comments NA (test code = 136 mmol/L 135-145 2843437881) K (test code = 4.9 mmol/L 3.5-5.0 Slight 6758893953) hemolysis CL (test code = 106 mmol/L 98-108 7860332403) CO2 TOTAL (test code 28 mmol/L 23-31 = 6145655252) AGAP (test code = 2 2-16 1157245489) BUN (test code = 26 mg/dL 7-23 H Slight 6585916134) hemolysis GLUCOSE (test code = 88 mg/dL 70-110 0787117328) CREATININE (test code 0.86 mg/dL 0.60-1.25 = 4181453743) CALCIUM (test code = 8.4 mg/dL 8.6-10.6 L 3472539443) eGFR (test code = 91.0 mL/min/1.73m2 7823067787) DEWAYNE (test code = DEWAYNE) Association of [...] tests). Lab Interpretation Abnormal (test code = 09012-8) [facility] 11:35:55 Test Item Value Reference Range Interpretation Comments MAGNESIUM (test code = 1459927147) 2.4 mg/dL 1.7-2.4 Lab Interpretation (test code = Normal 27411-8) [facility] [id number] 11:28:31 Test Item Value Reference Range Interpretation Comments WBC (test code = 6690-2) 7.81 See_Comment [A utomated message] The system [employer] generated this result transmit elizabeth reference range : 4.20 - 10.70 10*3/?L. The reference range was not used to interpret this result as normal/abnormal . RBC (test code = 789-8) 4.04 See_Comment L [Au tomated message] The system [employer] generated this result transmit elizabeth reference range [...] 252 See_Comment [Au tomated message] The system [employer] generated this result transmit elizabeth reference range : 150 - 328 10*3/?L. The reference range was not used to interpret this result as normal/abnormal . MPV (test code = 9.6 fL 9.8-13.0 L 20894-5) RDW-CV (test code = 14.6 % 12.1-15.4 788-0) RDW-SD (test code = 46.5 fL 38.5-51.6 44251-4) NRBC x10^3 (test code = See_Comment [Au tomated message] 1742890913) The system [employer] generated this result transmit elizabeth reference range : 10*3/?L. The reference range was not used to interpret this result as normal/abnormal . NRBC/100 WBC (test code 0.0 See_Comment [Au tomated message] = 3309562502) The system [facility] generated this result transmit elizabeth reference range : 0.0 - 10.0 /100 WBC s. The reference r mitra was not used to interpret this result as normal/abnormal . IPF % (test code = 9796259477) Lab Interpretation (test Abnormal code = 48931-8) [facility] [id number] 11:28:31 Test Item Value Reference Range Interpretation Comments WBC (test code = 6690-2) 7.81 See_Comment [A utomated message] The system [employer] generated this result transmit elizabeth reference range : 4.20 - 10.70 10*3/?L. The reference range was not used to interpret this result as normal/abnormal . RBC (test code = 789-8) 4.04 See_Comment L [Au tomated message] The system [employer] generated this result transmit elizabeth reference range [...] 252 See_Comment [Au tomated message] The system [employer] generated this result transmit elizabeth reference range : 150 - 328 10*3/?L. The reference range was not used to interpret this result as normal/abnormal . MPV (test code = 9.6 fL 9.8-13.0 L 08158-9) RDW-CV (test code = 14.6 % 12.1-15.4 788-0) RDW-SD (test code = 46.5 fL 38.5-51.6 94690-9) NRBC x10^3 (test code = See_Comment [Au tomated message] 8160743133) The system [employer] generated this result transmit elizabeth reference range : 10*3/?L. The reference range was not used to interpret this result as normal/abnormal . NRBC/100 WBC (test code 0.0 See_Comment [Au tomated message] = 8887311150) The system [facility] generated this result transmit elizabeth reference range : 0.0 - 10.0 /100 WBC s. The reference r mitra was not used to interpret this result as normal/abnormal . IPF % (test code = 2002899430) Lab Interpretation (test Abnormal code = 01270-0) [facility] [id number] 11:28:31 Test Item Value Reference Range Interpretation Comments WBC (test code = 6690-2) 7.81 See_Comment [A utomated message] The system [employer] generated this result transmit elizabeth reference range : 4.20 - 10.70 10*3/?L. The reference range was not used to interpret this result as normal/abnormal . RBC (test code = 789-8) 4.04 See_Comment L [Au tomated message] The system [employer] generated this result transmit elizabeth reference range [...] 252 See_Comment [Au tomated message] The system [employer] generated this result transmit elizabeth reference range : 150 - 328 10*3/?L. The reference range was not used to interpret this result as normal/abnormal . MPV (test code = 9.6 fL 9.8-13.0 L 91811-3) RDW-CV (test code = 14.6 % 12.1-15.4 788-0) RDW-SD (test code = 46.5 fL 38.5-51.6 78207-5) NRBC x10^3 (test code = See_Comment [Au tomated message] 3549092950) The system [employer] generated this result transmit elizabeth reference range : 10*3/?L. The reference range was not used to interpret this result as normal/abnormal . NRBC/100 WBC (test code 0.0 See_Comment [Au tomated message] = 5683536825) The system [facility] generated this result transmit elizabeth reference range : 0.0 - 10.0 /100 WBC s. The reference r mitra was not used to interpret this result as normal/abnormal . IPF % (test code = 2420607177) Lab Interpretation (test Abnormal code = 18214-5) [facility] [id number] 11:28:31 Test Item Value Reference Range Interpretation Comments WBC (test code = 6690-2) 7.81 See_Comment [A utomated message] The system [employer] generated this result transmit elizabeth reference range : 4.20 - 10.70 10*3/?L. The reference range was not used to interpret this result as normal/abnormal . RBC (test code = 789-8) 4.04 See_Comment L [Au tomated message] The system [employer] generated this result transmit elizabeth reference [...] 252 See_Comment [Au tomated message] The system [employer] generated this result transmit elizabeth reference range : 150 - 328 10*3/?L. The reference range was not used to interpret this result as normal/abnormal . MPV (test code = 9.6 fL 9.8-13.0 L 45825-7) RDW-CV (test code = 14.6 % 12.1-15.4 788-0) RDW-SD (test code = 46.5 fL 38.5-51.6 66957-5) NRBC x10^3 (test code = See_Comment [Au tomated message] 6387502194) The system [employer] generated this result transmit elizabeth reference range : 10*3/?L. The reference range was not used to interpret this result as normal/abnormal . NRBC/100 WBC (test code 0.0 See_Comment [Au tomated message] = 4909215016) The system [employer] generated this result transmit elizabeth reference range : 0.0 - 10.0 /100 WBC s. The reference r mitra was not used to interpret this result as normal/abnormal . 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 Mutation Tested: F2 c.69485D>A (P31847B). Clinical Sensitivity for Venous Thrombosis: Approximately 10%. Methodology: Polymerase chain reaction and fluorescence monitoring Limitations: The performance of this assay has not been evaluated with samples from pediatric patients. Counseling and informed consent are recommended for genetic testing. References: OMIM: 294701 [email or web address].gov/c ondition/prothrombin-thro mbophilia [facility] [id number] 18:45:15 Test Item Value Reference Range Interpretation Comments FACTOR 5 LEIDEN Heterozygous Normal (test code = 8731207844) DEWAYNE (test code = Phenotype Characteristics: DEWAYNE) [...] the Factor 5 Leiden mutation is c.1601G>A (p.Pyk516Ocs). Methodology: Polymerase chain reaction and fluorescence monitoring. Limitations: Rare Factor V mutations (Z0609S, W9870R, and U6477K) and any additional SNPs in the probe binding region may interfere with the target detection and yield an INVALID result. The performance of this assay has not been evaluated with samples from pediatric patients. Counseling and informed consent are recommended for genetic testing. References: OMIM: 050173 [email or web address].[email or web address].gov/co ndition/oosnrf-z-fzxlnq- rombophilia [facility] [id number] 18:45:15 Test Item Value Reference Range Interpretation Comments Factor 2 [id number] Heterozygous Normal Mutation (test code = 5544591660) DEWAYNE (test code = Phenotype DEWAYNE) Characteristics: [...] further increased for homozygotes. Mutation Tested: F2 c.76835H>A (T86471N). Clinical Sensitivity for Venous Thrombosis: Approximately 10%. Methodology: Polymerase chain reaction and fluorescence monitoring Limitations: The performance of this assay has not been evaluated with samples from pediatric patients. Counseling and informed consent are recommended for genetic testing. References: OMIM: 322923 [email or web address].[email or web address].gov/c ondition/prothrombin-thro mbophilia [facility] [id number] 18:45:15 Test Item Value Reference Range Interpretation Comments FACTOR 5 LEIDEN Heterozygous Normal (test code = 7751345943) DEWAYNE (test code = Phenotype Characteristics: DEWAYNE) [...] the Factor 5 Leiden mutation is c.1601G>A (p.Sft260Txg). Methodology: Polymerase chain reaction and fluorescence monitoring. Limitations: Rare Factor V mutations (Z8630F, I2474N, and K8216B) and any additional SNPs in the probe binding region may interfere with the target detection and yield an INVALID result. The performance of this assay has not been evaluated with samples from pediatric patients. Counseling and informed consent are recommended for genetic testing. References: OMIM: 368670 https://ghr.nlm.nih.gov/co ndition/quntaa-v-qnmnzq-th rombophilia [facility] [id number] [id number] 18:45:15 Test Item Value Reference Range Interpretation Comments Factor 2 Q31223N Heterozygous Normal Mutation (test code = 6984091876) DEWAYNE (test code = Phenotype DEWAYNE) Characteristics: [...] further increased for homozygotes. Mutation Tested: F2 c.66885Q>A (E89212Y). Clinical Sensitivity for Venous Thrombosis: Approximately 10%. Methodology: Polymerase chain reaction and fluorescence monitoring Limitations: The performance of this assay has not been evaluated with samples from pediatric patients. Counseling and informed consent are recommended for genetic testing. References: OMIM: 012080 https://ghr.nlm.nih.gov/c ondition/prothrombin-thro mbophilia [facility] 5 [id number] 18:45:15 Test Item Value Reference Range Interpretation Comments FACTOR 5 LEIDEN Heterozygous Normal (test code = 6087053144) DEWAYNE (test code = Phenotype Characteristics: DEWAYNE) [...] the Factor 5 Leiden mutation is c.1601G>A (p.Whu348Nai). Methodology: Polymerase chain reaction and fluorescence monitoring. Limitations: Rare Factor V mutations (R6374J, N2143Q, and S0240U) and any additional SNPs in the probe binding region may interfere with the target detection and yield an INVALID result. The performance of this assay has not been evaluated with samples from pediatric patients. Counseling and informed consent are recommended for genetic testing. References: OMIM: 934372 https://ghr.nlm.nih.gov/co ndition/wcvvzo-h-pgpmis-th rombophilia [facility] [id number] 18:45:15 Test Item Value Reference Range Interpretation Comments Factor 2 R46632M Heterozygous Normal Mutation (test code = 8407447485) DEWAYNE (test code = Phenotype DEWAYNE) Characteristics: [...] further increased for homozygotes. Mutation Tested: F2 c.28586S>A (M86881P). Clinical Sensitivity for Venous Thrombosis: Approximately 10%. Methodology: Polymerase chain reaction and fluorescence monitoring Limitations: The performance of this assay has not been evaluated with samples from pediatric patients. Counseling and informed consent are recommended for genetic testing. References: OMIM: 131812 https://ghr.nlm.nih.gov/c ondition/prothrombin-thro mbophilia [facility] [id number] 18:45:15 Test Item Value Reference Range Interpretation Comments FACTOR 5 LEIDEN Heterozygous Normal (test code = 9065175548) DEWAYNE (test code = Phenotype Characteristics: DEWAYNE) [...] the Factor 5 Leiden mutation is c.1601G>A (p.Nrk699Dfj). Methodology: Polymerase chain reaction and fluorescence monitoring. Limitations: Rare Factor V mutations (Z0361O, X4855O, and W4792H) and any additional SNPs in the probe binding region may interfere with the target detection and yield an INVALID result. The performance of this assay has not been evaluated with samples from pediatric patients. Counseling and informed consent are recommended for genetic testing. References: OMIM: 299136 https://ghr.nlm.nih.gov/co ndition/uphust-m-qnifsx-th rombophilia [facility] Center[facility] PAN[facility] (NA, K, CL, CO2, GLUCOSE, BUN, CREATININE, CA)2022-05-28 09:52:42 Test Item Value Reference Range Interpretation Comments NA (test code = 137 mmol/L 135-145 2713831861) K (test code = 3.8 mmol/L 3.5-5.0 4774035655) CL (test code = 103 mmol/L 98-108 3370734467) CO2 TOTAL (test code = 27 mmol/L 23-31 3163287797) AGAP (test code = 7 2-16 1630041148) BUN (test code = 27 mg/dL 7-23 H 9452702126) GLUCOSE (test code = 105 mg/dL 70-110 5795648828) CREATININE (test code = 0.84 mg/dL 0.60-1.25 5597407416) CALCIUM (test code = 8.5 mg/dL 8.6-10.6 L 8702434502) eGFR (test code = 93.5 mL/min/1.73m2 1221130776) DEWAYNE (test code = DEWAYNE) Association of [...] tests). Lab Interpretation Abnormal (test code = 45060-1) [facility] METABOLIC PANEL (NA, K, CL, CO2, GLUCOSE, BUN, CREATININE, CA)2022-05-28 09:52:42 Test Item Value Reference Range Interpretation Comments NA (test code = 137 mmol/L 135-145 1245859845) K (test code = 3.8 mmol/L 3.5-5.0 4526727686) CL (test code = 103 mmol/L 98-108 3775902375) CO2 TOTAL (test code = 27 mmol/L 23-31 3391776661) AGAP (test code = 7 2-16 0384141000) BUN (test code = 27 mg/dL 7-23 H 8386717915) GLUCOSE (test code = 105 mg/dL 70-110 0317543124) CREATININE (test code = 0.84 mg/dL 0.60-1.25 7077237447) CALCIUM (test code = 8.5 mg/dL 8.6-10.6 L 0880263673) eGFR (test code = 93.5 mL/min/1.73m2 8323299814) DEWAYNE (test code = DEWAYNE) Association of [...] tests). Lab Interpretation Abnormal (test code = 64564-3) [facility] METABOLIC PANEL (NA, K, CL, CO2, GLUCOSE, BUN, CREATININE, CA)2022-05-28 09:52:42 Test Item Value Reference Range Interpretation Comments NA (test code = 137 mmol/L 135-145 5723124234) K (test code = 3.8 mmol/L 3.5-5.0 2307522582) CL (test code = 103 mmol/L 98-108 0748351184) CO2 TOTAL (test code = 27 mmol/L 23-31 1617760160) AGAP (test code = 7 2-16 8521578354) BUN (test code = 27 mg/dL 7-23 H 7936009400) GLUCOSE (test code = 105 mg/dL 70-110 5385276457) CREATININE (test code = 0.84 mg/dL 0.60-1.25 3725335108) CALCIUM (test code = 8.5 mg/dL 8.6-10.6 L 8423000829) eGFR (test code = 93.5 mL/min/1.73m2 7698978749) DEWAYNE (test code = DEWAYNE) Association of [...] tests). Lab Interpretation Abnormal (test code = 97029-8) [facility] METABOLIC PANEL (NA, K, CL, CO2, GLUCOSE, BUN, CREATININE, CA)2022-05-28 09:52:42 Test Item Value Reference Range Interpretation Comments NA (test code = 137 mmol/L 135-145 4704473596) K (test code = 3.8 mmol/L 3.5-5.0 6132930510) CL (test code = 103 mmol/L 98-108 6049783738) CO2 TOTAL (test code = 27 mmol/L 23-31 7983685565) AGAP (test code = 7 2-16 8806501492) BUN (test code = 27 mg/dL 7-23 H 8737330804) GLUCOSE (test code = 105 mg/dL 70-110 3624362346) CREATININE (test code = 0.84 mg/dL 0.60-1.25 0213025953) CALCIUM (test code = 8.5 mg/dL 8.6-10.6 L 9148241048) eGFR (test code = 93.5 mL/min/1.73m2 3777375820) DEWAYNE (test code = DEWAYNE) Association of [...] tests). Lab Interpretation Abnormal (test code = 55072-6) [facility] WITH [id number] 09:29:20 Test Item Value Reference Range Interpretation Comments WBC (test code = 8.34 See_Comment [Automated 4990-2) message] The sy stem which generated this result transmitted reference range : 4.20 - 10.70 10*3/?L. The reference range was not used to interpret this result as normal/abnormal . RBC (test code = 4.08 See_Comment L [Automated 9-8) message] The sy [...] RDW-SD (test code = 44.7 fL 38.5-51.6 01610-6) RDW-CV (test code = 14.5 % 12.1-15.4 788-0) PLT (test code = 199 See_Comment [Automated 777-3) message] The sy stem which generated this result transmitted reference range : 150 - 328 10*3/ ?L. The reference r mitra was not used to interpret this result as normal/abnormal . MPV (test code = 9.3 fL 9.8-13.0 L 12541-7) NRBC/100 WBC (test 0.0 See_Comment [Automat ed code = 9200894435) message] The system which generated this result transmitted reference range : 0.0 - 10.0 /100 WBCs. The refer ence range was not u sed to interpret th is result as normal/abnormal . NRBC x10^3 (test code See_Comment [Auto mated = 5903353358) message] The s ystem which generated this result transmitted reference range : 10*3/?L. The reference range was not used to interpret this result as normal/abnormal . GRAN MAT (NEUT) % 56.1 % (test code = 770-8) IMM GRAN % (test code 1.20 % = 3311702998) LYMPH % (test code = 30.8 % 736-9) MONO % (test code = 7.6 % 5905-5) EOS % (test code = 3.7 % 713-8) BASO % (test code = 0.6 % 706-2) GRAN MAT x10^3(ANC) 4.68 10*3/uL 1.99-6.95 (test code = 9870534657) IMM GRAN x10^3 (test 0.10 10*3/uL 0.00-0.06 H code = 4505955229) LYMPH x10^3 (test code 2.57 10*3/uL 1.09-3.23 = 731-0) MONO x10^3 (test code 0.63 10*3/uL 0.36-1.02 = 742-7) EOS x10^3 (test code = 0.31 10*3/uL 0.06-0.53 711-2) BASO x10^3 (test code 0.05 10*3/uL 0.01-0.09 = 704-7) Lab Interpretation Abnormal (test code = 32549-6) [facility] WITH [id number] 09:29:20 Test Item Value Reference Range Interpretation [...] RDW-SD (test code = 44.7 fL 38.5-51.6 93821-1) RDW-CV (test code = 14.5 % 12.1-15.4 788-0) PLT (test code = 199 See_Comment [Automated 777-3) message] The sy stem which generated this result transmitted reference range : 150 - 328 10*3/ ?L. The reference r mitra was not used to interpret this result as normal/abnormal . MPV (test code = 9.3 fL 9.8-13.0 L 04366-6) NRBC/100 WBC (test 0.0 See_Comment [Automat ed code = 4942998528) message] The system which generated this result transmitted reference range : 0.0 - 10.0 /100 WBCs. The refer ence range was not u sed to interpret th is result as normal/abnormal . NRBC x10^3 (test code See_Comment [Auto mated = 9749364872) message] The s ystem which generated this result transmitted reference range : 10*3/?L. The reference range was not used to interpret this result as normal/abnormal . GRAN MAT (NEUT) % 56.1 % (test code = 770-8) IMM GRAN % (test code 1.20 % = 5142367820) LYMPH % (test code = 30.8 % 736-9) MONO % (test code = 7.6 % 5905-5) EOS % (test code = 3.7 % 713-8) BASO % (test code = 0.6 % 706-2) GRAN MAT x10^3(ANC) 4.68 10*3/uL 1.99-6.95 (test code = 3756550154) IMM GRAN x10^3 (test 0.10 10*3/uL 0.00-0.06 H code = 3698071699) LYMPH x10^3 (test code 2.57 10*3/uL 1.09-3.23 = 731-0) MONO x10^3 (test code 0.63 10*3/uL 0.36-1.02 = 742-7) EOS x10^3 (test code = 0.31 10*3/uL 0.06-0.53 711-2) BASO x10^3 (test code 0.05 10*3/uL 0.01-0.09 = 704-7) Lab Interpretation Abnormal (test code = 80797-1) [facility] WITH [id number] 09:29:20 Test Item Value Reference Range Interpretation Comments WBC (test code = 8.34 See_Comment [Automated 4890-2) message] The sy stem which generated this result transmitted reference range : 4.20 - 10.70 10*3/?L. The reference range was not used to interpret this result as normal/abnormal . RBC (test code = 4.08 See_Comment L [Automated 039-8) message] The sy stem which generated this [...] RDW-SD (test code = 44.7 fL 38.5-51.6 81356-2) RDW-CV (test code = 14.5 % 12.1-15.4 788-0) PLT (test code = 199 See_Comment [Automated 777-3) message] The sy stem which generated this result transmitted reference range : 150 - 328 10*3/ ?L. The reference r mitra was not used to interpret this result as normal/abnormal . MPV (test code = 9.3 fL 9.8-13.0 L 48287-6) NRBC/100 WBC (test 0.0 See_Comment [Automat ed code = 5162266727) message] The system which generated this result transmitted reference range : 0.0 - 10.0 /100 WBCs. The refer ence range was not u sed to interpret th is result as normal/abnormal . NRBC x10^3 (test code See_Comment [Auto mated = 5756798509) message] The s ystem which generated this result transmitted reference range : 10*3/?L. The reference range was not used to interpret this result as normal/abnormal . GRAN MAT (NEUT) % 56.1 % (test code = 770-8) IMM GRAN % (test code 1.20 % = 6462517012) LYMPH % (test code = 30.8 % 736-9) MONO % (test code = 7.6 % 5905-5) EOS % (test code = 3.7 % 713-8) BASO % (test code = 0.6 % 706-2) GRAN MAT x10^3(ANC) 4.68 10*3/uL 1.99-6.95 (test code = 3554072422) IMM GRAN x10^3 (test 0.10 10*3/uL 0.00-0.06 H code = 9089680458) LYMPH x10^3 (test code 2.57 10*3/uL 1.09-3.23 = 731-0) MONO x10^3 (test code 0.63 10*3/uL 0.36-1.02 = 742-7) EOS x10^3 (test code = 0.31 10*3/uL 0.06-0.53 711-2) BASO x10^3 (test code 0.05 10*3/uL 0.01-0.09 = 704-7) Lab Interpretation Abnormal (test code = 13875-5) [facility] WITH [id number] 09:29:20 Test Item Value Reference Range Interpretation [...] RDW-SD (test code = 44.7 fL 38.5-51.6 34302-4) RDW-CV (test code = 14.5 % 12.1-15.4 788-0) PLT (test code = 199 See_Comment [Automated 777-3) message] The sy stem which generated this result transmitted reference range : 150 - 328 10*3/ ?L. The reference r mitra was not used to interpret this result as normal/abnormal . MPV (test code = 9.3 fL 9.8-13.0 L 78385-6) NRBC/100 WBC (test 0.0 See_Comment [Automat ed code = 1686612034) message] The system which generated this result transmitted reference range : 0.0 - 10.0 /100 WBCs. The refer ence range was not u sed to interpret th is result as normal/abnormal . NRBC x10^3 (test code See_Comment [Auto mated = 4737577002) message] The s ystem which generated this result transmitted reference range : 10*3/?L. The reference range was not used to interpret this result as normal/abnormal . GRAN MAT (NEUT) % 56.1 % (test code = 770-8) IMM GRAN % (test code 1.20 % = 5897798319) LYMPH % (test code = 30.8 % 736-9) MONO % (test code = 7.6 % 5905-5) EOS % (test code = 3.7 % 713-8) BASO % (test code = 0.6 % 706-2) GRAN MAT x10^3(ANC) 4.68 10*3/uL 1.99-6.95 (test code = 4262445458) IMM GRAN x10^3 (test 0.10 10*3/uL 0.00-0.06 H code = 5565017353) LYMPH x10^3 (test code 2.57 10*3/uL 1.09-3.23 = 731-0) MONO x10^3 (test code 0.63 10*3/uL 0.36-1.02 = 742-7) EOS x10^3 (test code = 0.31 10*3/uL 0.06-0.53 711-2) BASO x10^3 (test code 0.05 10*3/uL 0.01-0.09 = 704-7) Lab Interpretation Abnormal (test code = 68372-3) [facility] ([facility]), [id number] 04:20:00 Test Item Value Reference Interpretation Comments Range Levetiracetam 4.1 ug/mL 10.0-40.0 A This test was developed and ([facility]), S (test its perfor fritz code = KEPPRA.L) characteris ticsdetermined by [facility]. It has not been cleared orappro mannie by the Food and Drug Administration. Performed at: - [facility] [address] [place], [place] [address] Di shahid: Miriam Sevilla MD, Ph one: [phone] Drug Screen,[id number] 20:40:00 Test Item Value Reference Range Interpretation [...] Urine (test Negative Negative code = UPROP) Complete Blood Count Auto [id number] 19:50:00 Test Item Value Reference Range Interpretation [...] code = NRBCP) 0 % B-Type Natriuretic [id number] 19:50:00 Test Item Value Reference Range Interpretation Comments B-Type Natriuretic Peptide (test 30.2 pg/mL 0.0-99.9 N code = BNP) Comprehensive Metabolic Cyxmf0654-35-04 19:50:00 Test Item Value Reference Range Interpretation [...] 47 U/L 46-116 N = ALP) Troponin [id number] 19:50:00 Test Item Value Reference Range Interpretation [...] 99th percentile in serialmeasureme nts. Prothrombin Time [id number] 19:50:00 Test Item Value Reference Range Interpretation Comments Prothrombin Time (test code = 10.9 Seconds 9.8-13.4 N PT) INR (test code = INR) 1.0 ratio 0.6-1.2 N Partial Thromboplastin [id number] 19:50:00 Test Item Value Reference Range Interpretation Comments Partial Thromboplastin Time 20.00 Seconds 24.39-37.25 L (test code = PTT) SARS-CoV-2 (COVID-19) RNA [Presence] in Respiratory specimen by COOPER with probe weaqavejv2425-66-69 03:31:41 Test Item Value Reference Range Interpretation Comments SARS-CoV-2 (COVID-19) RNA Not detected Not-Detected [Presence] in Respiratory specimen by COOPER with probe detection (test code = 19239-1) [facility] Metabolic Xpmgu9358-28-74 20:19:00 Test Item Value Reference Range Interpretation [...] ://nkd ep.nih.gov CT HEAD OR BRAIN WO XWHSWOLN6561-13-42 18:19:40Location code: R 15HISTORY: Intracranial hemorrhageCOMPARISON: None.TECHNIQUE: [...] Unremarkable nonenhanced CT scan of the brain.Ammonia, [id number] 12:35:00 Test Item Value Reference Range Interpretation Comments Ammonia (test code = NH3) 25.0 umol/L 11.0-35.0 N US DUPLX EXT VEINS COMPRS, [id number] 15:35:40ULTRASOUND: Bilateral lower extremity venous duplex sonography.History: [...] An IVC filter is in place.Impression:Unremarkable exam.Glycosylated Aeskzxwdyv0526-01-00 10:36:00 Test Item Value Reference Range Interpretation Comments HBA1c (test code = HBA1C) 5.1 % 4.8-5.9 N RPR, Ohsi6487-75-05 12:10:00 Test Item Value Reference Range Interpretation Comments RPR (test code = RPR) Non-Reactive Non-Reactive N Thyroid Stimulating Hormone (TSH)2016-12-24 06:02:00 Test Item Value Reference Range Interpretation Comments TSH (test code = TSH) 1.03 mIU/mL 0.270-4.200 N Lipid Wojjnpx8376-53-35 05:53:00 Test Item Value Reference Range Interpretation Comments Cholesterol (test 205 mg/dL 0-200 H code = CHOL) Triglycerides (test 69 mg/dL 9-200 N code = TRIG) HDL (test code = 68 mg/dL 40-60 H HDL) Chol/HDL (test code 3.0 Ratio 0.0-5.0 N = CHOLPHDL) LDL, Calculated 123 0-130 N (NOTE)RISK O F HEART (test code = LDLC) DISEASEPu blished by [place] Heart AssociationAnal yte Optimal Boderli ne Increased RiskC HOL <200 200-239 >240TRI G <150 150-199 >200HDL Male: >60 <40HDL Fema le: >60 <50LDL <100 130 -159 >160LDL NEAR OP TIMAL IS 100-129 VLDL (test code = 14 mg/dL 5-40 N VLDL) LDL/HDL (test code = 2 LDLPHDL) Comprehensive Metabolic Vyvtj7501-12-27 18:42:00 Test Item Value Reference Range Interpretation [...] National Kid[employer] Foundation,http ://nkd ep.nih.gov CBC with Gpfifvycfjki2045-57-70 17:59:00 Test Item Value Reference Range Interpretation [...] code = ALYMPH) 1.4 K/cumm 0.5-4.6 N [place] Abs (test code = AMONO) 0.9 K/cumm 0.0-1.2 N Eos Abs (test code = AEOS) 0.01 K/cumm 0.00-0.74 N Baso Abs (test code = ABASO) 0.0 K/cumm 0.00-0.21 N QENJLNYAZJCP7478-09-32 18:46:00 Test Item Value Reference Range Interpretation Comments B/C Ratio (test code = B/C Ratio) 18 6-25 [facility]QwnntcmRYFBZVPFJNRB1270-01-74 18:46:00 Test Item Value Reference Range Interpretation Comments A/G Ratio (test code = A/G Ratio) 1.1 0.7-1.6 [facility] CenterDuvtbysDBMYGLIOPSYF4834-56-34 18:46:00 Test Item Value Reference Range Interpretation Comments Globulin (test code = Globulin) 3.3 2.0-4.0 [facility] CenterQxbrfbxKOTIBWMPRGMP5203-42-75 18:46:00 Test Item Value Reference Range Interpretation Comments eGFR (test code = eGFR) 99 [facility] CenterYrtolfiYOBJFPYPFDIZ8796-81-02 18:46:00 Test Item Value Reference Range Interpretation Comments Calcium Lvl (test code = Calcium Lvl) 9.0 8.5-10.5 [facility] CenterWaglhqsUGVBXWRKYTLV6765-92-24 18:46:00 Test Item Value Reference Range Interpretation Comments Chloride Lvl (test code = Chloride Lvl) 106 95-109 [facility] CenterUfemaxpTOIEMRZYNMBD4293-03-97 18:46:00 Test Item Value Reference Range Interpretation Comments Creatinine Lvl (test code = Creatinine 0.9 0.5-1.4 Lvl) [facility] CenterErubnahVTKLWXXUWFPR7951-47-89 18:46:00 Test Item Value Reference Range Interpretation Comments Potassium Lvl (test code = Potassium 4.2 3.5-5.1 Lvl) [facility] CenterMqhdkdjZULHICODFVTK9427-56-52 18:46:00 Test Item Value Reference Range Interpretation Comments Sodium Lvl (test code = Sodium Lvl) 139 135-145 [facility] CenterOoxeglgUWRZUPWZRFIV6906-40-77 18:46:00 Test Item Value Reference Range Interpretation Comments CO2 (test code = CO2) 24 24-32 [facility] CenterIvsatvlQSUHCSJUQQQU3845-52-23 18:46:00 Test Item Value Reference Range Interpretation Comments BUN (test code = BUN) 16 7-22 [facility] CenterYiigrdhLWRMQSQYBRRZ2363-74-07 18:46:00 Test Item Value Reference Range Interpretation Comments Glucose Lvl (test code = Glucose Lvl) 141 70-99 [facility] CenterKwtdktrFDFBTZNCWDYL8642-51-00 18:46:00 Test Item Value Reference Range Interpretation Comments Albumin Lvl (test code = Albumin Lvl) 3.6 3.5-5.0 [facility] CenterYnrjxlpEEYZRNEKVAVI0015-54-38 18:46:00 Test Item Value Reference Range Interpretation Comments Alk Phos (test code = Alk Phos) 65 39-136 [facility] CenterYprmjarEJPUXWDVLVMB8364-19-75 18:46:00 Test Item Value Reference Range Interpretation Comments Bili Total (test code = Bili Total) 0.3 0.2-1.3 [facility] CenterCznupdgYUJGDDQFGFKL5678-72-30 18:46:00 Test Item Value Reference Range Interpretation Comments ALT (test code = ALT) 100 See_Comment [Auto mated message] The system which ge nerated this result transmit elizabeth reference range : <=65. The reference range was not used to interpr et this result as lukas l/abnormal. [facility] CenterBuoxbatCWDKHPGVKEFN0136-36-12 18:46:00 Test Item Value Reference Range Interpretation Comments AST (test code = AST) 53 See_Comment [Auto mated message] The system which ge nerated this result transmit elizabeth reference range : <=37. The reference range was not used to interpr et this result as lukas l/abnormal. [facility] CenterXurucisOKVWFUFGDOUG0514-19-93 18:46:00 Test Item Value Reference Range Interpretation Comments Total Protein (test code = Total 6.9 6.4-8.4 Protein) [facility] CenterAsyistuEHAZYDNLCG3180-92-29 18:46:00 Test Item Value Reference Range Interpretation Comments Eosinophils (test code = 4.2 See_Comment [A utomated message] The Eosinophils) system which ge nerated this result tra nsmitted reference range : <=4.0. The reference r mitra was not used to int erpret this result as normal/abnormal . [facility] CenterHwjpxtzMKXAOYGWWL0543-13-39 18:46:00 Test Item Value Reference Range Interpretation Comments Segs (test code = Segs) 56.4 45.0-75.0 [facility] CenterGetfcsgPKVPEGWCYR7615-89-93 18:46:00 Test Item Value Reference Range Interpretation Comments Monocytes (test code = Monocytes) 10.3 2.0-12.0 [facility] CenterRjxkpchRFGRIJOBEF3671-37-87 18:46:00 Test Item Value Reference Range Interpretation Comments Lymphocytes (test code = Lymphocytes) 28.0 20.0-40.0 [facility] CenterNkqxhydXOUDWTKPWZ7600-84-75 18:46:00 Test Item Value Reference Range Interpretation Comments Monocytes # (test code 0.5 See_Comment [Aut omated message] The = Monocytes #) system which generated this result tra nsmitted reference range : <=0.8. The reference r mitra was not used to int erpret this result as normal/abnormal . [facility] CenterCepurnoPTJGGLQDUM2567-92-76 18:46:00 Test Item Value Reference Range Interpretation Comments Basophils (test code = 1.1 See_Comment [Aut omated message] The Basophils) system which ge nerated this result tra nsmitted reference range : <=1.0. The reference r mitra was not used to int erpret this result as normal/abnormal . [facility] CenterRhfqvldZEKQCINUIA5397-60-48 18:46:00 Test Item Value Reference Range Interpretation Comments Lymphocytes # (test code = Lymphocytes 1.5 1.0-5.5 #) [facility] CenterHatomxlMLQOFUPFNU9289-59-44 18:46:00 Test Item Value Reference Range Interpretation Comments Segs-Bands # (test code = Segs-Bands #) 2.9 1.5-8.1 [facility] CenterKyjmknhRRJZJHWUGN1301-79-37 18:46:00 Test Item Value Reference Range Interpretation Comments Eosinophils # (test code 0.2 See_Comment [A utomated message] The = Eosinophils #) system whic h generated this result tra nsmitted reference range : <=0.5. The reference r mitra was not used to int erpret this result as normal/abnormal . [facility] CenterFzwufhtLJBRPJOVGS8123-26-76 18:46:00 Test Item Value Reference Range Interpretation Comments Basophils # (test code 0.1 See_Comment [Aut omated message] The = Basophils #) system which generated this result tra nsmitted reference range : <=0.2. The reference r mitra was not used to int erpret this result as normal/abnormal . [facility] CenterCcundevSKCKAANSIY8964-96-91 18:46:00 Test Item Value Reference Range Interpretation Comments PT (test code = PT) 11.2 s 12.0-14.7 [facility] CenterGahviopTJNKOMABYA6717-54-63 18:46:00 Test Item Value Reference Range Interpretation Comments INR (test code = INR) 0.82 0.85-1.17 [facility] CenterTowgyqyOGYMOZHAGY3887-16-62 18:46:00 Test Item Value Reference Range Interpretation Comments PTT (test code = PTT) 28.6 s 22.9-35.8 [facility]IiyxrorDDCQZCAPHX2902-15-60 18:46:00 Test Item Value Reference Range Interpretation Comments MPV (test code = MPV) 8.1 7.4-10.4 [facility] HospitalFddopmeTOQKVTRGCC2954-52-02 18:46:00 Test Item Value Reference Range Interpretation Comments Platelet (test code = Platelet) 301 133-450 [facility] HospitalBwzdtshAKXGYJAFCQ6894-39-80 18:46:00 Test Item Value Reference Range Interpretation Comments RDW (test code = RDW) 14.5 11.5-14.5 [facility] HospitalMbljcvuRJLZIUINHG0034-43-44 18:46:00 Test Item Value Reference Range Interpretation Comments RBC (test code = RBC) 4.84 4.70-6.10 [facility] HospitalXsseuzjHPHMBOGSIZ7202-98-11 18:46:00 Test Item Value Reference Range Interpretation Comments Hgb (test code = Hgb) 14.4 14.0-18.0 [facility] HospitalQdlohbnTUBNUYVZLE8938-29-78 18:46:00 Test Item Value Reference Range Interpretation Comments WBC (test code = WBC) 5.2 3.7-10.4 [facility] HospitalHchrfnlMNQVWMLGNN0937-31-83 18:46:00 Test Item Value Reference Range Interpretation Comments MCH (test code = MCH) 29.8 pg 27.0-31.0 [facility] HospitalCuhaoavJOGOIQMXIF2499-33-24 18:46:00 Test Item Value Reference Range Interpretation Comments MCV (test code = MCV) 92.0 80.0-94.0 [facility]tyq[facility]hsDYSLYETMLV7892-66-22 18:46:00 Test Item Value Reference Range Interpretation Comments Hct (test code = Hct) 44.5 42.0-54.0 [facility] HospitalTpxjitgMNCLBNDWRG9602-15-41 18:46:00 Test Item Value Reference Range Interpretation Comments MCHC (test code = MCHC) 32.4 32.0-36.0 [facility] HospitalGngazmjIDMFCLEINT3609-77-60 18:46:00 Test Item Value Reference Range Interpretation Comments [place]-Hep C Ab (test Negative *NA*(07/22/14 code = [place]-Hep C 1:46 PM) Ab) [facility]2015-06-09 18:46:00 Test Item Value Reference Range Interpretation Comments UA Urobilinogen (test code = UA <=1.0 mg/dL 0.1-1.0 Urobilinogen) [facility] AND [id number] 18:46:00 Test Item Value Reference Range Interpretation Comments UA Sq Epi (test code = UA Sq Epi) None Seen [facility] AND [id number] 18:46:00 Test Item Value Reference Range Interpretation Comments UA Leuk Est (test Negative (07/22/14 1:46 code = UA Leuk Est) PM) [facility] AND [id number] 18:46:00 Test Item Value Reference Range Interpretation Comments UA Nitrite (test code Negative (07/22/14 1:46 = UA Nitrite) PM) [facility] AND [id number] 18:46:00 Test Item Value Reference Range Interpretation Comments UA Blood (test code = Negative (07/22/14 1:46 UA Blood) PM) [facility] AND [id number] 18:46:00 Test Item Value Reference Range Interpretation Comments UA Ketones (test code = UA Negative mg/dL Ketones) [facility] AND [id number] 18:46:00 Test Item Value Reference Range Interpretation Comments UA Bili (test code = Negative *NA*(07/22/14 UA Bili) 1:46 PM) [facility] AND [id number] 18:46:00 Test Item Value Reference Range Interpretation Comments UA Bacteria (test code = UA Occasional /HPF Bacteria) [facility] AND [id number] 18:46:00 Test Item Value Reference Range Interpretation Comments UA RBC (test code = no gt See_Comment [Automa elizabeth message] The UA RBC) system which ge nerated this result transmit elizabeth reference range : <=2. The reference range was not used to interpr et this result as lukas l/abnormal. [facility] AND [id number] 18:46:00 Test Item Value Reference Range Interpretation Comments UA WBC (test code = 1 See_Comment [Automa elizabeth message] The UA WBC) system which ge nerated this result transmit elizabeth reference range : <=5. The reference range was not used to interpr et this result as lukas l/abnormal. [facility] AND [id number] 18:46:00 Test Item Value Reference Range Interpretation Comments UA Glucose (test code = UA Glucose) 30 mg/dL [facility] AND [id number] 18:46:00 Test Item Value Reference Range Interpretation Comments UA Protein (test code = UA Negative mg/dL Protein) [facility] AND [id number] 18:46:00 Test Item Value Reference Range Interpretation Comments UA pH (test code = UA pH) 6.5 5.0-8.0 [facility] AND [id number] 18:46:00 Test Item Value Reference Range Interpretation Comments UA Turbidity (test code = Clear (07/22/14 1:46 UA Turbidity) PM) [facility] AND [id number] 18:46:00 Test Item Value Reference Range Interpretation Comments UA Spec Grav (test code = UA Spec Grav) 1.010 [facility] AND [id number] 18:46:00 Test Item Value Reference Range Interpretation Comments UA Color (test code = Light Yellow UA Color) *NA*(07/22/14 1:46 PM) [facility] [id number] 18:46:00 Test Item Value Reference Range Interpretation Comments Magnesium Lvl (test code = Magnesium 1.8 1.8-2.4 Lvl) [facility]VptzyhrJOXTRAGAXCVN3114-62-97 18:46:00 Test Item Value Reference Range Interpretation Comments AGAP (test code = AGAP) 13.2 10.0-20.0 [facility] CenterLvpsqiwOVAEIPSAGRJI0431-08-56 18:46:00 Test Item Value Reference Range Interpretation Comments B/C Ratio (test code = B/C Ratio) 18 6-25 [facility] CenterRhnflfxVFULJCVICVZT5833-19-18 18:46:00 Test Item Value Reference Range Interpretation Comments A/G Ratio (test code = A/G Ratio) 1.1 0.7-1.6 [facility] CenterHglfpfaDGVQYAEJXKHW5168-20-36 18:46:00 Test Item Value Reference Range Interpretation Comments Globulin (test code = Globulin) 3.3 2.0-4.0 [facility] CenterEutkgppAQLAPCKYQDMC9460-21-44 18:46:00 Test Item Value Reference Range Interpretation Comments eGFR (test code = eGFR) 99 [facility] CenterBofoqzuMCRMZDMTDPEP8624-59-73 18:46:00 Test Item Value Reference Range Interpretation Comments Calcium Lvl (test code = Calcium Lvl) 9.0 8.5-10.5 [facility] CenterFguocohCXPQQOJQWJRA5593-54-07 18:46:00 Test Item Value Reference Range Interpretation Comments Chloride Lvl (test code = Chloride Lvl) 106 95-109 [facility] CenterMnszcicNALMJTKKYCRY9346-39-67 18:46:00 Test Item Value Reference Range Interpretation Comments Creatinine Lvl (test code = Creatinine 0.9 0.5-1.4 Lvl) [facility] CenterJtnknonISPSXHIDIISH8208-18-33 18:46:00 Test Item Value Reference Range Interpretation Comments Potassium Lvl (test code = Potassium 4.2 3.5-5.1 Lvl) [facility] CenterDqkhekwGPORIVEJKHDJ2878-03-79 18:46:00 Test Item Value Reference Range Interpretation Comments Sodium Lvl (test code = Sodium Lvl) 139 135-145 [facility] CenterKqtkndjYSGZGJTMOWUA7722-62-39 18:46:00 Test Item Value Reference Range Interpretation Comments CO2 (test code = CO2) 24 24-32 [facility] CenterLdqkdhhEIMFRJAMWXYG3489-70-88 18:46:00 Test Item Value Reference Range Interpretation Comments BUN (test code = BUN) 16 7-22 [facility] CenterUolyouxDWUGZHNMGVVQ7610-15-09 18:46:00 Test Item Value Reference Range Interpretation Comments Glucose Lvl (test code = Glucose Lvl) 141 70-99 [facility] CenterBzpaztgCFJGTCLSMYAZ3670-46-56 18:46:00 Test Item Value Reference Range Interpretation Comments Albumin Lvl (test code = Albumin Lvl) 3.6 3.5-5.0 [facility] CenterOshnvjbCNPOJJMCUWYC4071-14-67 18:46:00 Test Item Value Reference Range Interpretation Comments Alk Phos (test code = Alk Phos) 65 39-136 [facility] CenterHbhqgybTOOJEJNBBGJX8363-95-98 18:46:00 Test Item Value Reference Range Interpretation Comments Bili Total (test code = Bili Total) 0.3 0.2-1.3 [facility] CenterEfgcviuHTHPIVCLYPAX6437-80-57 18:46:00 Test Item Value Reference Range Interpretation Comments ALT (test code = ALT) 100 See_Comment [Auto mated message] The system which ge nerated this result transmit elizabeth reference range : <=65. The reference range was not used to interpr et this result as lukas l/abnormal. [facility] CenterXzjlyeqUWJAFZYBHVWP5282-10-63 18:46:00 Test Item Value Reference Range Interpretation Comments AST (test code = AST) 53 See_Comment [Auto mated message] The system which ge nerated this result transmit elizabeth reference range : <=37. The reference range was not used to interpr et this result as lukas l/abnormal. [facility] CenterGkuxcvkKANXZOLBUCMM2499-62-21 18:46:00 Test Item Value Reference Range Interpretation Comments Total Protein (test code = Total 6.9 6.4-8.4 Protein) [facility] CenterHcxlmtzCGSMZFJSUH1460-20-22 18:46:00 Test Item Value Reference Range Interpretation Comments Eosinophils (test code = 4.2 See_Comment [A utomated message] The Eosinophils) system which ge nerated this result tra nsmitted reference range : <=4.0. The reference r mitra was not used to int erpret this result as normal/abnormal . [facility] CenterWjamgrnJFMYMHOVYT6453-69-38 18:46:00 Test Item Value Reference Range Interpretation Comments Segs (test code = Segs) 56.4 45.0-75.0 [facility] CenterVczkkcuZCMGVXSJMH0350-90-50 18:46:00 Test Item Value Reference Range Interpretation Comments Monocytes (test code = Monocytes) 10.3 2.0-12.0 [facility] CenterRudwtqiIRSEEPWNUN3553-49-57 18:46:00 Test Item Value Reference Range Interpretation Comments Lymphocytes (test code = Lymphocytes) 28.0 20.0-40.0 [facility] CenterQlbojbbIPUFLQDUJO3205-74-13 18:46:00 Test Item Value Reference Range Interpretation Comments Monocytes # (test code 0.5 See_Comment [Aut omated message] The = Monocytes #) system which generated this result tra nsmitted reference range : <=0.8. The reference r mitra was not used to int erpret this result as normal/abnormal . [facility] CenterUhasmfgWSOLYHAPLQ4325-73-26 18:46:00 Test Item Value Reference Range Interpretation Comments Basophils (test code = 1.1 See_Comment [Aut omated message] The Basophils) system which ge nerated this result tra nsmitted reference range : <=1.0. The reference r mitra was not used to int erpret this result as normal/abnormal . [place] [id number] 18:46:00 Test Item Value Reference Range Interpretation Comments Lymphocytes # (test code = Lymphocytes 1.5 1.0-5.5 #) [facility] CenterLptouvePDJIAYWTXI7557-94-94 18:46:00 Test Item Value Reference Range Interpretation Comments Segs-Bands # (test code = Segs-Bands #) 2.9 1.5-8.1 [facility] CenterMbdfpqaFSJFOLXWZU7153-13-91 18:46:00 Test Item Value Reference Range Interpretation Comments Eosinophils # (test code 0.2 See_Comment [A utomated message] The = Eosinophils #) system whic h generated this result tra nsmitted reference range : <=0.5. The reference r mitra was not used to int erpret this result as normal/abnormal . [facility] CenterGliwskuIYWVOHVLQK9276-76-48 18:46:00 Test Item Value Reference Range Interpretation Comments Basophils # (test code 0.1 See_Comment [Aut omated message] The = Basophils #) system which generated this result tra nsmitted reference range : <=0.2. The reference r mitra was not used to int erpret this result as normal/abnormal . [facility] CenterUytxyflXIFNJMUFZZ4089-37-13 18:46:00 Test Item Value Reference Range Interpretation Comments PT (test code = PT) 11.2 s 12.0-14.7 [facility] CenterSutagwgTZFILWEWVE0786-99-12 18:46:00 Test Item Value Reference Range Interpretation Comments INR (test code = INR) 0.82 0.85-1.17 [facility] CenterNlomxvmYVFSJGUYGB4892-96-64 18:46:00 Test Item Value Reference Range Interpretation Comments PTT (test code = PTT) 28.6 s 22.9-35.8 [facility] CenterXsqtmdlNSNPEIJNGX2821-06-79 18:46:00 Test Item Value Reference Range Interpretation Comments MPV (test code = MPV) 8.1 7.4-10.4 [facility] CenterKqxfdpkYAKGUCPDMM4807-57-83 18:46:00 Test Item Value Reference Range Interpretation Comments Platelet (test code = Platelet) 301 133-450 [facility] CenterJnvdngyDEPOSQSLLW8013-17-37 18:46:00 Test Item Value Reference Range Interpretation Comments RDW (test code = RDW) 14.5 11.5-14.5 [facility] CenterWanzehbQTWLMKJKNG4297-46-73 18:46:00 Test Item Value Reference Range Interpretation Comments RBC (test code = RBC) 4.84 4.70-6.10 [facility] CenterZvzlnebUBYZTEBLGN5291-87-68 18:46:00 Test Item Value Reference Range Interpretation Comments Hgb (test code = Hgb) 14.4 14.0-18.0 [facility] CenterHtoaltrEIKCHGZUOV5911-17-82 18:46:00 Test Item Value Reference Range Interpretation Comments WBC (test code = WBC) 5.2 3.7-10.4 [facility] CenterDylacgfMKGBGHNQAN4657-53-44 18:46:00 Test Item Value Reference Range Interpretation Comments MCH (test code = MCH) 29.8 pg 27.0-31.0 [facility] CenterLnqheklAMJBKJZFWV3431-75-06 18:46:00 Test Item Value Reference Range Interpretation Comments MCV (test code = MCV) 92.0 80.0-94.0 [facility] CenterYotymjmUKYYKGORZA0659-37-43 18:46:00 Test Item Value Reference Range Interpretation Comments Hct (test code = Hct) 44.5 42.0-54.0 [facility]AsctzlgQCZNOJBAHB6157-27-54 18:46:00 Test Item Value Reference Range Interpretation Comments MCHC (test code = MCHC) 32.4 32.0-36.0 [facility] HospitalZesugafGDMUHOTEMU5158-40-46 18:46:00 Test Item Value Reference Range Interpretation Comments [place]Hep C Ab (test Negative *NA*(07/22/14 code = [place]Hep C 1:46 PM) Ab) [facility] AND [id number] 18:46:00 Test Item Value Reference Range Interpretation Comments UA Urobilinogen (test code = UA <=1.0 mg/dL 0.1-1.0 Urobilinogen) [facility] AND [id number] 18:46:00 Test Item Value Reference Range Interpretation Comments UA Sq Epi (test code = UA Sq Epi) None Seen [facility] AND [id number] 18:46:00 Test Item Value Reference Range Interpretation Comments UA Leuk Est (test Negative (07/22/14 1:46 code = UA Leuk Est) PM) [facility] AND [id number] 18:46:00 Test Item Value Reference Range Interpretation Comments UA Nitrite (test code Negative (07/22/14 1:46 = UA Nitrite) PM) [facility] AND [id number] 18:46:00 Test Item Value Reference Range Interpretation Comments UA Blood (test code = Negative (07/22/14 1:46 UA Blood) PM) [facility] AND [id number] 18:46:00 Test Item Value Reference Range Interpretation Comments UA Ketones (test code = UA Negative mg/dL Ketones) [facility] AND [id number] 18:46:00 Test Item Value Reference Range Interpretation Comments UA Bili (test code = Negative *NA*(07/22/14 UA Bili) 1:46 PM) [facility] AND [id number] 18:46:00 Test Item Value Reference Range Interpretation Comments UA Bacteria (test code = UA Occasional /HPF Bacteria) [facility] AND [id number] 18:46:00 Test Item Value Reference Range Interpretation Comments UA RBC (test code = no gt See_Comment [Automa elizabeth message] The UA RBC) system which ge nerated this result transmit elizabeth reference range : <=2. The reference range was not used to interpr et this result as lukas l/abnormal. [facility] AND [id number] 18:46:00 Test Item Value Reference Range Interpretation Comments UA WBC (test code = 1 See_Comment [Automa elizabeth message] The UA WBC) system which ge nerated this result transmit elizabeth reference range : <=5. The reference range was not used to interpr et this result as lukas l/abnormal. [facility] AND [id number] 18:46:00 Test Item Value Reference Range Interpretation Comments UA Glucose (test code = UA Glucose) 30 mg/dL [facility] AND [id number] 18:46:00 Test Item Value Reference Range Interpretation Comments UA Protein (test code = UA Negative mg/dL Protein) [facility] AND [id number] 18:46:00 Test Item Value Reference Range Interpretation Comments UA pH (test code = UA pH) 6.5 5.0-8.0 [facility] AND [id number] 18:46:00 Test Item Value Reference Range Interpretation Comments UA Turbidity (test code = Clear (07/22/14 1:46 UA Turbidity) PM) [facility] [id number] 18:46:00 Test Item Value Reference Range Interpretation Comments UA Spec Grav (test code = UA Spec Grav) 1.010 [facility] AND [id number] 18:46:00 Test Item Value Reference Range Interpretation Comments UA Color (test code = Light Yellow UA Color) *NA*(07/22/14 1:46 PM) [facility]issannCHEM [id number] 18:46:00 Test Item Value Reference Range Interpretation Comments Magnesium Lvl (test code = Magnesium 1.8 1.8-2.4 Lvl) [facility]SiazewnTPFVQBXKIMDF7961-84-44 18:46:00 Test Item Value Reference Range Interpretation Comments AGAP (test code = AGAP) 13.2 10.0-20.0 [facility] CenterEruylqiQFKXEYIWTGSE1474-83-87 18:46:00 Test Item Value Reference Range Interpretation Comments B/C Ratio (test code = B/C Ratio) 18 6-25 [facility] CenterNoweajqWJAIRXWSOJKE2198-92-28 18:46:00 Test Item Value Reference Range Interpretation Comments A/G Ratio (test code = A/G Ratio) 1.1 0.7-1.6 [facility] CenterHngogfgJAEOBLMURCLI7602-08-93 18:46:00 Test Item Value Reference Range Interpretation Comments Globulin (test code = Globulin) 3.3 2.0-4.0 [facility] CenterDuedyagICYNRQAUANJM1575-84-48 18:46:00 Test Item Value Reference Range Interpretation Comments eGFR (test code = eGFR) 99 [facility] CenterQgpocusCLFLHGXKFGII3195-32-55 18:46:00 Test Item Value Reference Range Interpretation Comments Calcium Lvl (test code = Calcium Lvl) 9.0 8.5-10.5 [facility] CenterJjitomoEGRKTGCLQXSB7506-17-97 18:46:00 Test Item Value Reference Range Interpretation Comments Chloride Lvl (test code = Chloride Lvl) 106 95-109 [facility] CenterStcnjhfCTMOOCZIFUER7888-07-43 18:46:00 Test Item Value Reference Range Interpretation Comments Creatinine Lvl (test code = Creatinine 0.9 0.5-1.4 Lvl) [facility] CenterIlilkraMFMCVSHZHUQS8512-47-08 18:46:00 Test Item Value Reference Range Interpretation Comments Potassium Lvl (test code = Potassium 4.2 3.5-5.1 Lvl) [facility] CenterKidwrseSEGIUKNMHUYZ1517-12-51 18:46:00 Test Item Value Reference Range Interpretation Comments Sodium Lvl (test code = Sodium Lvl) 139 135-145 [facility] CenterGtqkzixTPXGFJFPGXIU5884-25-55 18:46:00 Test Item Value Reference Range Interpretation Comments CO2 (test code = CO2) 24 24-32 [facility] CenterForgcvwPCBGODVDHSRB5695-76-61 18:46:00 Test Item Value Reference Range Interpretation Comments BUN (test code = BUN) 16 7-22 [facility] CenterXrkrtmmAOQUUBWEHGXM0111-16-18 18:46:00 Test Item Value Reference Range Interpretation Comments Glucose Lvl (test code = Glucose Lvl) 141 70-99 [facility] CenterHwjgegyZEVIFCRKUSLH8592-08-03 18:46:00 Test Item Value Reference Range Interpretation Comments Albumin Lvl (test code = Albumin Lvl) 3.6 3.5-5.0 [facility] CenterMfkcawpBKPIYOTJKCPA1377-63-72 18:46:00 Test Item Value Reference Range Interpretation Comments Alk Phos (test code = Alk Phos) 65 39-136 [facility] CenterLxcdhyfJZMRQGMGNGFS4719-31-88 18:46:00 Test Item Value Reference Range Interpretation Comments Bili Total (test code = Bili Total) 0.3 0.2-1.3 [facility] CenterStffrsxGMVBGSQZJKIX0279-17-05 18:46:00 Test Item Value Reference Range Interpretation Comments ALT (test code = ALT) 100 See_Comment [Auto mated message] The system which ge nerated this result transmit elizabeth reference range : <=65. The reference range was not used to interpr et this result as lukas l/abnormal. [facility] CenterXjmwqvqCEGMNPKYHAYU9465-14-91 18:46:00 Test Item Value Reference Range Interpretation Comments AST (test code = AST) 53 See_Comment [Auto mated message] The system which ge nerated this result transmit elizabeth reference range : <=37. The reference range was not used to interpr et this result as lukas l/abnormal. [facility] CenterRgxdrleQRTLDSINOBED8669-71-19 18:46:00 Test Item Value Reference Range Interpretation Comments Total Protein (test code = Total 6.9 6.4-8.4 Protein) [facility]NvwmoxuOQWSYKKFED9164-34-53 18:46:00 Test Item Value Reference Range Interpretation Comments Eosinophils (test code = 4.2 See_Comment [A utomated message] The Eosinophils) system which ge nerated this result tra nsmitted reference range : <=4.0. The reference r mitra was not used to int erpret this result as normal/abnormal . [facility] CenterYfrvdikGVSBHPZBTA3851-01-66 18:46:00 Test Item Value Reference Range Interpretation Comments Segs (test code = Segs) 56.4 45.0-75.0 [facility] CenterIvjhtmrAGGTALCCXB7507-89-92 18:46:00 Test Item Value Reference Range Interpretation Comments Monocytes (test code = Monocytes) 10.3 2.0-12.0 [facility] CenterTqwzghoFGQZLCEAOV1331-92-40 18:46:00 Test Item Value Reference Range Interpretation Comments Lymphocytes (test code = Lymphocytes) 28.0 20.0-40.0 [facility] CenterNvzwzqbGXSUTQIDON6877-66-55 18:46:00 Test Item Value Reference Range Interpretation Comments Monocytes # (test code 0.5 See_Comment [Aut omated message] The = Monocytes #) system which generated this result tra nsmitted reference range : <=0.8. The reference r mitra was not used to int erpret this result as normal/abnormal . [facility] CenterCtfezofJNUZNROQVA2510-61-56 18:46:00 Test Item Value Reference Range Interpretation Comments Basophils (test code = 1.1 See_Comment [Aut omated message] The Basophils) system which ge nerated this result tra nsmitted reference range : <=1.0. The reference r mitra was not used to int erpret this result as normal/abnormal . [facility] CenterOwjokvvPNYBULBEYB9778-38-82 18:46:00 Test Item Value Reference Range Interpretation Comments Lymphocytes # (test code = Lymphocytes 1.5 1.0-5.5 #) [facility] CenterHgftxrmPCTAQPAMPA6878-03-86 18:46:00 Test Item Value Reference Range Interpretation Comments Segs-Bands # (test code = Segs-Bands #) 2.9 1.5-8.1 [facility] CenterVnosevdGDMOBUFHFA0499-38-12 18:46:00 Test Item Value Reference Range Interpretation Comments Eosinophils # (test code 0.2 See_Comment [A utomated message] The = Eosinophils #) system whic h generated this result tra nsmitted reference range : <=0.5. The reference r mitra was not used to int erpret this result as normal/abnormal . [facility] CenterChcuensXYGYJOCSAM2579-05-07 18:46:00 Test Item Value Reference Range Interpretation Comments Basophils # (test code 0.1 See_Comment [Aut omated message] The = Basophils #) system which generated this result tra nsmitted reference range : <=0.2. The reference r mitra was not used to int erpret this result as normal/abnormal . [facility] CenterHayieopFIQNWFNQBI5377-47-00 18:46:00 Test Item Value Reference Range Interpretation Comments PT (test code = PT) 11.2 s 12.0-14.7 [facility] [facility]pxybvjNNLTXIYGNQ4647[facility]-92 18:46:00 Test Item Value Reference Range Interpretation Comments INR (test code = INR) 0.82 0.85-1.17 [facility] CenterZjhowmnRJZCQIZVNE1773-79-63 18:46:00 Test Item Value Reference Range Interpretation Comments PTT (test code = PTT) 28.6 s 22.9-35.8 [facility] CenterAmdsnwzQDOIFNQIMF8740-90-63 18:46:00 Test Item Value Reference Range Interpretation Comments MPV (test code = MPV) 8.1 7.4-10.4 [facility] CenterDgatfreVBPAUZMDTP2465-02-35 18:46:00 Test Item Value Reference Range Interpretation Comments Platelet (test code = Platelet) 301 133-450 [facility] CenterDqymxtsVVZHSGXFPA8709-72-02 18:46:00 Test Item Value Reference Range Interpretation Comments RDW (test code = RDW) 14.5 11.5-14.5 [facility] CenterOruesisZQCTBTIXJD5657-22-90 18:46:00 Test Item Value Reference Range Interpretation Comments RBC (test code = RBC) 4.84 4.70-6.10 [facility] CenterUufwbgxOSPELCCUXG2574-12-93 18:46:00 Test Item Value Reference Range Interpretation Comments Hgb (test code = Hgb) 14.4 14.0-18.0 [facility] CenterDjfnckhSVRXZRCDCD6811-36-14 18:46:00 Test Item Value Reference Range Interpretation Comments WBC (test code = WBC) 5.2 3.7-10.4 [facility] CenterGiyydqeHUTEJDWGTL4293-75-03 18:46:00 Test Item Value Reference Range Interpretation Comments MCH (test code = MCH) 29.8 pg 27.0-31.0 [facility] OlvoqovFOWLSTFREN3918-53-91 18:46:00 Test Item Value Reference Range Interpretation Comments MCV (test code = MCV) 92.0 80.0-94.0 [facility] OgjzuzpZPSAMQXNKM1834-49-31 18:46:00 Test Item Value Reference Range Interpretation Comments Hct (test code = Hct) 44.5 42.0-54.0 [facility] PwlqollOMAWDDSTKA3242-57-96 18:46:00 Test Item Value Reference Range Interpretation Comments MCHC (test code = MCHC) 32.4 32.0-36.0 [facility] ZmwqtlyTMOPFBOWBU8534-28-42 18:46:00 Test Item Value Reference Range Interpretation Comments [place]-Hep C Ab (test Negative *NA*(07/22/14 code = [place]-Hep C 1:46 PM) Ab) [facility] AND [id number] 18:46:00 Test Item Value Reference Range Interpretation Comments UA Urobilinogen (test code = UA <=1.0 mg/dL 0.1-1.0 Urobilinogen) [facility] AND [id number] 18:46:00 Test Item Value Reference Range Interpretation Comments UA Sq Epi (test code = UA Sq Epi) None Seen [facility] AND [id number] 18:46:00 Test Item Value Reference Range Interpretation Comments UA Leuk Est (test Negative (07/22/14 1:46 code = UA Leuk Est) PM) [facility] AND [id number] 18:46:00 Test Item Value Reference Range Interpretation Comments UA Nitrite (test code Negative (07/22/14 1:46 = UA Nitrite) PM) [facility] AND [id number] 18:46:00 Test Item Value Reference Range Interpretation Comments UA Blood (test code = Negative (07/22/14 1:46 UA Blood) PM) [facility] [id number] 18:46:00 Test Item Value Reference Range Interpretation Comments UA Ketones (test code = UA Negative mg/dL Ketones) [facility] AND [id number] 18:46:00 Test Item Value Reference Range Interpretation Comments UA Bili (test code = Negative *NA*(07/22/14 UA Bili) 1:46 PM) [facility] [id number] 18:46:00 Test Item Value Reference Range Interpretation Comments UA Bacteria (test code = UA Occasional /HPF Bacteria) [facility] [id number] 18:46:00 Test Item Value Reference Range Interpretation Comments UA RBC (test code = no gt See_Comment [Automa elizabeth message] The UA RBC) system which ge nerated this result transmit elizabeth reference range : <=2. The reference range was not used to interpr et this result as lukas l/abnormal. [facility] [id number] 18:46:00 Test Item Value Reference Range Interpretation Comments UA WBC (test code = 1 See_Comment [Automa elizabeth message] The UA WBC) system which ge nerated this result transmit elizabeth reference range : <=5. The reference range was not used to interpr et this result as lukas l/abnormal. [facility] [id number] 18:46:00 Test Item Value Reference Range Interpretation Comments UA Glucose (test code = UA Glucose) 30 mg/dL [facility] [id number] 18:46:00 Test Item Value Reference Range Interpretation Comments UA Protein (test code = UA Negative mg/dL Protein) [facility] [id number] 18:46:00 Test Item Value Reference Range Interpretation Comments UA pH (test code = UA pH) 6.5 5.0-8.0 [facility] [id number] 18:46:00 Test Item Value Reference Range Interpretation Comments UA Turbidity (test code = Clear (07/22/14 1:46 UA Turbidity) PM) [facility] [id number] 18:46:00 Test Item Value Reference Range Interpretation Comments UA Spec Grav (test code = UA Spec Grav) 1.010 [facility] [id number] 18:46:00 Test Item Value Reference Range Interpretation Comments UA Color (test code = Light Yellow UA Color) *NA*(07/22/14 1:46 PM) [facility] [id number] 18:46:00 Test Item Value Reference Range Interpretation Comments Magnesium Lvl (test code = Magnesium 1.8 1.8-2.4 Lvl) [facility]NwenqblEHJINNYDBXTK8595-15-99 18:46:00 Test Item Value Reference Range Interpretation Comments AGAP (test code = AGAP) 13.2 10.0-20.0 [facility] CenterOqsnychOXGFHHZBPMEO9351-61-68 18:46:00 Test Item Value Reference Range Interpretation Comments B/C Ratio (test code = B/C Ratio) 18 6-25 [facility] CenterFbvhievMNSHWJSFPZRA2281-41-56 18:46:00 Test Item Value Reference Range Interpretation Comments A/G Ratio (test code = A/G Ratio) 1.1 0.7-1.6 [facility] CenterTkhanwxDSXRRLMWATIZ8263-56-85 18:46:00 Test Item Value Reference Range Interpretation Comments Globulin (test code = Globulin) 3.3 2.0-4.0 [facility] CenterZdmwlfpQQAGPSJSTNKV8021-01-57 18:46:00 Test Item Value Reference Range Interpretation Comments eGFR (test code = eGFR) 99 [facility] CenterAlhmwirRFFORMDXTKNJ2342-92-37 18:46:00 Test Item Value Reference Range Interpretation Comments Calcium Lvl (test code = Calcium Lvl) 9.0 8.5-10.5 [facility] CenterHpfcqwoMARUCKUFHKHB2863-88-60 18:46:00 Test Item Value Reference Range Interpretation Comments Chloride Lvl (test code = Chloride Lvl) 106 95-109 [facility] CenterVzvngrkVOFOHVUNEMTR2751-96-05 18:46:00 Test Item Value Reference Range Interpretation Comments Creatinine Lvl (test code = Creatinine 0.9 0.5-1.4 Lvl) [facility] CenterViepbjvSGGYZQVHQWLB0748-52-89 18:46:00 Test Item Value Reference Range Interpretation Comments Potassium Lvl (test code = Potassium 4.2 3.5-5.1 Lvl) [facility] CenterHfnvqhuLSPBTIVSSWSH1955-44-37 18:46:00 Test Item Value Reference Range Interpretation Comments Sodium Lvl (test code = Sodium Lvl) 139 135-145 [facility] CenterNbxbzccCYVCRCJQDDJR7953-26-07 18:46:00 Test Item Value Reference Range Interpretation Comments CO2 (test code = CO2) 24 24-32 [facility] CenterGepfjlsYNCUPVFMCBCR7707-77-10 18:46:00 Test Item Value Reference Range Interpretation Comments BUN (test code = BUN) 16 7-22 [facility] CenterOnyrbakRQDQWLFRQRWU1773-67-88 18:46:00 Test Item Value Reference Range Interpretation Comments Glucose Lvl (test code = Glucose Lvl) 141 70-99 [facility] CenterDqqxrbfQKGUNEYDVWRQ0915-40-47 18:46:00 Test Item Value Reference Range Interpretation Comments Albumin Lvl (test code = Albumin Lvl) 3.6 3.5-5.0 [facility] CenterNfoabtwXEFJDICDZRLE5403-00-91 18:46:00 Test Item Value Reference Range Interpretation Comments Alk Phos (test code = Alk Phos) 65 39-136 [facility] CenterGyefiibUWRYMSZISWDE4709-42-83 18:46:00 Test Item Value Reference Range Interpretation Comments Bili Total (test code = Bili Total) 0.3 0.2-1.3 [facility] CenterIdsnbzqVLHHZREBIXMA9424-70-85 18:46:00 Test Item Value Reference Range Interpretation Comments ALT (test code = ALT) 100 See_Comment [Auto mated message] The system which ge nerated this result transmit elizabeth reference range : <=65. The reference range was not used to interpr et this result as lukas l/abnormal. [facility] CenterObbxttpQCMLTYZDDTVK5134-37-53 18:46:00 Test Item Value Reference Range Interpretation Comments AST (test code = AST) 53 See_Comment [Auto mated message] The system which ge nerated this result transmit elizabeth reference range : <=37. The reference range was not used to interpr et this result as lukas l/abnormal. [facility] CenterRmchgrnQNUHUALOJIOF0885-32-67 18:46:00 Test Item Value Reference Range Interpretation Comments Total Protein (test code = Total 6.9 6.4-8.4 Protein) [facility] CenterDgolwyzHRRIRPCLVU5520-44-45 18:46:00 Test Item Value Reference Range Interpretation Comments Eosinophils (test code = 4.2 See_Comment [A utomated message] The Eosinophils) system which ge nerated this result tra nsmitted reference range : <=4.0. The reference r mitra was not used to int erpret this result as normal/abnormal . [facility] CenterQgeqosaMPNVXFDQMV4823-92-05 18:46:00 Test Item Value Reference Range Interpretation Comments Segs (test code = Segs) 56.4 45.0-75.0 [facility] CenterDmqjpyhENPDDXEHSK2567-41-64 18:46:00 Test Item Value Reference Range Interpretation Comments Monocytes (test code = Monocytes) 10.3 2.0-12.0 [facility] CenterTogkushTSETERYWXO8755-69-85 18:46:00 Test Item Value Reference Range Interpretation Comments Lymphocytes (test code = Lymphocytes) 28.0 20.0-40.0 [facility] CenterUpprbmjMVASWUOZAR1472-48-17 18:46:00 Test Item Value Reference Range Interpretation Comments Monocytes # (test code 0.5 See_Comment [Aut omated message] The = Monocytes #) system which generated this result tra nsmitted reference range : <=0.8. The reference r mitra was not used to int erpret this result as normal/abnormal . [facility] CenterEtuyyblPDOPZIEOLJ6774-07-04 18:46:00 Test Item Value Reference Range Interpretation Comments Basophils (test code = 1.1 See_Comment [Aut omated message] The Basophils) system which ge nerated this result tra nsmitted reference range : <=1.0. The reference r mitra was not used to int erpret this result as normal/abnormal . [facility] CenterAbxwkykGMIYEQROTX1262-29-38 18:46:00 Test Item Value Reference Range Interpretation Comments Lymphocytes # (test code = Lymphocytes 1.5 1.0-5.5 #) [facility] CenterJnkxfhrBJEYULNNXS7453-31-03 18:46:00 Test Item Value Reference Range Interpretation Comments Segs-Bands # (test code = Segs-Bands #) 2.9 1.5-8.1 [facility] CenterIbfpstbAWDWKWLHKJ7959-02-24 18:46:00 Test Item Value Reference Range Interpretation Comments Eosinophils # (test code 0.2 See_Comment [A utomated message] The = Eosinophils #) system [facility] generated this result tra nsmitted reference range : <=0.5. The reference r mitra was not used to int erpret this result as normal/abnormal . [facility] CenterYisydyxLBQJWIVIIV6690-54-57 18:46:00 Test Item Value Reference Range Interpretation Comments Basophils # (test code 0.1 See_Comment [Aut omated message] The = Basophils #) system which generated this result tra nsmitted reference range : <=0.2. The reference r mitra was not used to int erpret this result as normal/abnormal . [facility] CenterIlcofxmCBTLLXCAHP1983-69-05 18:46:00 Test Item Value Reference Range Interpretation Comments PT (test code = PT) 11.2 s 12.0-14.7 [facility] CenterBtnjqwqQJJLLRMRQZ4525-27-08 18:46:00 Test Item Value Reference Range Interpretation Comments INR (test code = INR) 0.82 0.85-1.17 [facility] CenterLobtguuVMSECHLWIT1108-45-92 18:46:00 Test Item Value Reference Range Interpretation Comments PTT (test code = PTT) 28.6 s 22.9-35.8 [facility] CenterUluwtqoMZWTWXGTUF4182-11-90 18:46:00 Test Item Value Reference Range Interpretation Comments MPV (test code = MPV) 8.1 7.4-10.4 [facility] CenterLhiuislVMUGQISGVA3760-35-41 18:46:00 Test Item Value Reference Range Interpretation Comments Platelet (test code = Platelet) 301 133-450 [facility] CenterZljypmeUIBGIKPAKN5022-49-14 18:46:00 Test Item Value Reference Range Interpretation Comments RDW (test code = RDW) 14.5 11.5-14.5 [facility] CenterLrmlkpxYLYDYWPBNL0586-86-80 18:46:00 Test Item Value Reference Range Interpretation Comments RBC (test code = RBC) 4.84 4.70-6.10 [facility] CenterLccmdraYNYDADBEWG0040-35-66 18:46:00 Test Item Value Reference Range Interpretation Comments Hgb (test code = Hgb) 14.4 14.0-18.0 [facility] CenterLwtrrocPLOKBXCOIC4639-49-44 18:46:00 Test Item Value Reference Range Interpretation Comments WBC (test code = WBC) 5.2 3.7-10.4 [facility] CenterFmpyxzjSDUFBFUELV0708-81-53 18:46:00 Test Item Value Reference Range Interpretation Comments MCH (test code = MCH) 29.8 pg 27.0-31.0 [facility] CenterImyvmvfKPOEZPVEBE0182-97-38 18:46:00 Test Item Value Reference Range Interpretation Comments MCV (test code = MCV) 92.0 80.0-94.0 [facility] CenterHhnvqqpEDPZVICRBE9852-12-26 18:46:00 Test Item Value Reference Range Interpretation Comments Hct (test code = Hct) 44.5 42.0-54.0 [facility] CenterNhgudubCUOIZKJFVF5057-40-19 18:46:00 Test Item Value Reference Range Interpretation Comments MCHC (test code = MCHC) 32.4 32.0-36.0 [facility]KlrpmloUPEYSGWUTT7305-99-15 18:46:00 Test Item Value Reference Range Interpretation Comments [place]Hep C Ab (test Negative *NA*(07/22/14 code = [place]-Hep C 1:46 PM) Ab) [facility] AND [id number] 18:46:00 Test Item Value Reference Range Interpretation Comments UA Urobilinogen (test code = UA <=1.0 mg/dL 0.1-1.0 Urobilinogen) [facility] AND [id number] 18:46:00 Test Item Value Reference Range Interpretation Comments UA Sq Epi (test code = UA Sq Epi) None Seen [facility] AND [id number] 18:46:00 Test Item Value Reference Range Interpretation Comments UA Leuk Est (test Negative (07/22/14 1:46 code = UA Leuk Est) PM) [facility] AND [id number] 18:46:00 Test Item Value Reference Range Interpretation Comments UA Nitrite (test code Negative (07/22/14 1:46 = UA Nitrite) PM) [facility] AND [id number] 18:46:00 Test Item Value Reference Range Interpretation Comments UA Blood (test code = Negative (07/22/14 1:46 UA Blood) PM) [facility] AND [id number] 18:46:00 Test Item Value Reference Range Interpretation Comments UA Ketones (test code = UA Negative mg/dL Ketones) [facility] AND [id number] 18:46:00 Test Item Value Reference Range Interpretation Comments UA Bili (test code = Negative *NA*(07/22/14 UA Bili) 1:46 PM) [facility] AND [id number] 18:46:00 Test Item Value Reference Range Interpretation Comments UA Bacteria (test code = UA Occasional /HPF Bacteria) [facility] AND [id number] 18:46:00 Test Item Value Reference Range Interpretation Comments UA RBC (test code = no gt See_Comment [Automa elizabeth message] The UA RBC) system which ge nerated this result transmit elizabeth reference range : <=2. The reference range was not used to interpr et this result as lukas l/abnormal. [facility] AND [id number] 18:46:00 Test Item Value Reference Range Interpretation Comments UA WBC (test code = 1 See_Comment [Automa elizabeth message] The UA WBC) system which ge nerated this result transmit elizabeth reference range : <=5. The reference range was not used to interpr et this result as lukas l/abnormal. [facility] AND [id number] 18:46:00 Test Item Value Reference Range Interpretation Comments UA Glucose (test code = UA Glucose) 30 mg/dL [facility] AND [id number] 18:46:00 Test Item Value Reference Range Interpretation Comments UA Protein (test code = UA Negative mg/dL Protein) [facility] AND [id number] 18:46:00 Test Item Value Reference Range Interpretation Comments UA pH (test code = UA pH) 6.5 5.0-8.0 [facility] AND [id number] 18:46:00 Test Item Value Reference Range Interpretation Comments UA Turbidity (test code = Clear (07/22/14 1:46 UA Turbidity) PM) [facility] AND [id number] 18:46:00 Test Item Value Reference Range Interpretation Comments UA Spec Grav (test code = UA Spec Grav) 1.[address] [facility] AND [id number] 18:46:00 Test Item Value Reference Range Interpretation Comments UA Color (test code = Light Yellow UA Color) *NA*(07/22/14 1:46 PM) [facility] [id number] 18:46:00 Test Item Value Reference Range Interpretation Comments Magnesium Lvl (test code = Magnesium 1.8 1.8-2.4 Lvl) [facility] CenterDzxwwwbFAFEUCUSHRBI8682-19-45 18:46:00 Test Item Value Reference Range Interpretation Comments AGAP (test code = AGAP) 13.2 10.0-20.0 [facility] CenterAsmugcsYNRBTCQFQCXV3051-50-72 18:46:00 Test Item Value Reference Range Interpretation Comments B/C Ratio (test code = B/C Ratio) 18 6-25 [facility] CenterOvlirzcUOLXWGUXZKQA6494-22-95 18:46:00 Test Item Value Reference Range Interpretation Comments A/G Ratio (test code = A/G Ratio) 1.1 0.7-1.6 [facility] CenterKnlqcwiLVRTQRDNMFEY0326-77-01 18:46:00 Test Item Value Reference Range Interpretation Comments Globulin (test code = Globulin) 3.3 2.0-4.0 [facility] CenterNaahfxdAIWVACHXIUYM1203-77-69 18:46:00 Test Item Value Reference Range Interpretation Comments eGFR (test code = eGFR) 99 [facility] CenterAiwklzsRAHJARUBPKCV7867-56-03 18:46:00 Test Item Value Reference Range Interpretation Comments Calcium Lvl (test code = Calcium Lvl) 9.0 8.5-10.5 [facility] CenterNmyeljvTYJCAJZRWLRS2281-42-18 18:46:00 Test Item Value Reference Range Interpretation Comments Chloride Lvl (test code = Chloride Lvl) 106 95-109 [facility] CenterCuatkldOXLGCOFQHZKC5948-39-35 18:46:00 Test Item Value Reference Range Interpretation Comments Creatinine Lvl (test code = Creatinine 0.9 0.5-1.4 Lvl) [facility] CenterHgcdcmcVJHBDRPPYAZA1336-42-44 18:46:00 Test Item Value Reference Range Interpretation Comments Potassium Lvl (test code = Potassium 4.2 3.5-5.1 Lvl) [facility] CenterXpsdqhxDRDZQEDIYRUJ8682-95-15 18:46:00 Test Item Value Reference Range Interpretation Comments Sodium Lvl (test code = Sodium Lvl) 139 135-145 [facility] CenterFhekmsgSKEXIGXQIMCN2932-69-13 18:46:00 Test Item Value Reference Range Interpretation Comments CO2 (test code = CO2) 24 24-32 [facility] CenterWmmjinvUMQURBJSZMAN4533-54-21 18:46:00 Test Item Value Reference Range Interpretation Comments BUN (test code = BUN) 16 7-22 [facility] CenterYqikrbmIFXODHEBWBAX7668-84-79 18:46:00 Test Item Value Reference Range Interpretation Comments Glucose Lvl (test code = Glucose Lvl) 141 70-99 [facility] CenterKuolamtGWOAANSVRVUW6872-87-43 18:46:00 Test Item Value Reference Range Interpretation Comments Albumin Lvl (test code = Albumin Lvl) 3.6 3.5-5.0 [facility] CenterCwsgorxPFHGSRQIMMDZ4183-84-25 18:46:00 Test Item Value Reference Range Interpretation Comments Alk Phos (test code = Alk Phos) 65 39-136 [facility] CenterOcwbnhhWWKOYAAZQVFZ6249-93-87 18:46:00 Test Item Value Reference Range Interpretation Comments Bili Total (test code = Bili Total) 0.3 0.2-1.3 [facility] CenterSyyadloACITYPENBJFV6080-99-82 18:46:00 Test Item Value Reference Range Interpretation Comments ALT (test code = ALT) 100 See_Comment [Auto mated message] The system which ge nerated this result transmit elizabeth reference range : <=65. The reference range was not used to interpr et this result as lukas l/abnormal. [facility] CenterPqrzuakTVJOWSBZVCIT0337-60-50 18:46:00 Test Item Value Reference Range Interpretation Comments AST (test code = AST) 53 See_Comment [Auto mated message] The system which ge nerated this result transmit elizabeth reference range : <=37. The reference range was not used to interpr et this result as lukas l/abnormal. [facility] CenterCpzcpvmRJRFHYERGSNH6600-77-40 18:46:00 Test Item Value Reference Range Interpretation Comments Total Protein (test code = Total 6.9 6.4-8.4 Protein) [facility] CenterRsurxquBDJKPVEFEZ3203-20-16 18:46:00 Test Item Value Reference Range Interpretation Comments Eosinophils (test code = 4.2 See_Comment [A utomated message] The Eosinophils) system which ge nerated this result tra nsmitted reference range : <=4.0. The reference r mitra was not used to int erpret this result as normal/abnormal . [facility] CenterLwwjplbRYNVMBOQWB4568-26-90 18:46:00 Test Item Value Reference Range Interpretation Comments Segs (test code = Segs) 56.4 45.0-75.0 [facility] CenterSuxijzcARQTUZNOCS1945-09-56 18:46:00 Test Item Value Reference Range Interpretation Comments Monocytes (test code = Monocytes) 10.3 2.0-12.0 [facility] CenterYumajmdVEHTTEWRJQ1658-45-05 18:46:00 Test Item Value Reference Range Interpretation Comments Lymphocytes (test code = Lymphocytes) 28.0 20.0-40.0 [facility] CenterJjleagjEPCEHDCOAM9963-80-50 18:46:00 Test Item Value Reference Range Interpretation Comments Monocytes # (test code 0.5 See_Comment [Aut omated message] The = Monocytes #) system which generated this result tra nsmitted reference range : <=0.8. The reference r mitra was not used to int erpret this result as normal/abnormal . [facility] CenterCpxcozxWBYGXZPLSZ0491-30-02 18:46:00 Test Item Value Reference Range Interpretation Comments Basophils (test code = 1.1 See_Comment [Aut omated message] The Basophils) system which ge nerated this result tra nsmitted reference range : <=1.0. The reference r mitra was not used to int erpret this result as normal/abnormal . [facility] CenterJlwawohNJKTKJRZBN6281-07-37 18:46:00 Test Item Value Reference Range Interpretation Comments Lymphocytes # (test code = Lymphocytes 1.5 1.0-5.5 #) [facility] CenterJzzoszvAQRWAJEDPZ1895-24-69 18:46:00 Test Item Value Reference Range Interpretation Comments Segs-Bands # (test code = Segs-Bands #) 2.9 1.5-8.1 [facility] CenterBeiougaHQLVXZUBHW8395-22-07 18:46:00 Test Item Value Reference Range Interpretation Comments Eosinophils # (test code 0.2 See_Comment [A utomated message] The = Eosinophils #) system whic h generated this result tra nsmitted reference range : <=0.5. The reference r mitra was not used to int erpret this result as normal/abnormal . [facility] CenterGmlncadWLPILYYSEA6770-56-93 18:46:00 Test Item Value Reference Range Interpretation Comments Basophils # (test code 0.1 See_Comment [Aut omated message] The = Basophils #) system which generated this result tra nsmitted reference range : <=0.2. The reference r mitra was not used to int erpret this result as normal/abnormal . [facility] CenterEzwvwjiOWLXIHDWCH3325-65-61 18:46:00 Test Item Value Reference Range Interpretation Comments PT (test code = PT) 11.2 s 12.0-14.7 [facility] CenterIvixnxfHVLNBBHQEJ7914-04-92 18:46:00 Test Item Value Reference Range Interpretation Comments INR (test code = INR) 0.82 0.85-1.17 [facility] CenterNvdolwuIWPGIMUYXH6283-79-98 18:46:00 Test Item Value Reference Range Interpretation Comments PTT (test code = PTT) 28.6 s 22.9-35.8 [facility] CenterRyuncavWLWSXGGENY1220-82-63 18:46:00 Test Item Value Reference Range Interpretation Comments MPV (test code = MPV) 8.1 7.4-10.4 [facility] CenterDiciifiQNBKSQSUDO1003-49-17 18:46:00 Test Item Value Reference Range Interpretation Comments Platelet (test code = Platelet) 301 133-450 [facility]KmfltwzVSYZDQSJER0336-52-03 18:46:00 Test Item Value Reference Range Interpretation Comments RDW (test code = RDW) 14.5 11.5-14.5 [facility] HospitalYydbszmQERUBHZTZW9760-97-06 18:46:00 Test Item Value Reference Range Interpretation Comments RBC (test code = RBC) 4.84 4.70-6.10 [facility] HospitalKrzophmBGPCQTGGSF0784-49-59 18:46:00 Test Item Value Reference Range Interpretation Comments Hgb (test code = Hgb) 14.4 14.0-18.0 [facility] CenterIjjgxqmGXCNSOHFUV3041-31-08 18:46:00 Test Item Value Reference Range Interpretation Comments WBC (test code = WBC) 5.2 3.7-10.4 [facility] CenterRstzippWRMTEMGFOX4533-42-23 18:46:00 Test Item Value Reference Range Interpretation Comments MCH (test code = MCH) 29.8 pg 27.0-31.0 [facility] CenterTqsqczoETGXBQDYCQ6489-68-47 18:46:00 Test Item Value Reference Range Interpretation Comments MCV (test code = MCV) 92.0 80.0-94.0 [facility] HospitalUypyadvDRKWTMOZRL8587-51-69 18:46:00 Test Item Value Reference Range Interpretation Comments Hct (test code = Hct) 44.5 42.0-54.0 [facility] HospitalYdytfexSOKDWVSYUQ5878-43-99 18:46:00 Test Item Value Reference Range Interpretation Comments MCHC (test code = MCHC) 32.4 32.0-36.0 [facility]UxzkqrcAIJJVUYDML8066-82-99 18:46:00 Test Item Value Reference Range Interpretation Comments [place]-Hep C Ab (test Negative *NA*(07/22/14 code = [place]-Hep C 1:46 PM) Ab) [facility] AND [id number] 18:46:00 Test Item Value Reference Range Interpretation Comments UA Urobilinogen (test code = UA <=1.0 mg/dL 0.1-1.0 Urobilinogen) [facility] AND [id number] 18:46:00 Test Item Value Reference Range Interpretation Comments UA Sq Epi (test code = UA Sq Epi) None Seen [facility] AND [id number] 18:46:00 Test Item Value Reference Range Interpretation Comments UA Leuk Est (test Negative (07/22/14 1:46 code = UA Leuk Est) PM) [facility] AND [id number] 18:46:00 Test Item Value Reference Range Interpretation Comments UA Nitrite (test code Negative (07/22/14 1:46 = UA Nitrite) PM) [facility] AND [id number] 18:46:00 Test Item Value Reference Range Interpretation Comments UA Blood (test code = Negative (07/22/14 1:46 UA Blood) PM) [facility] AND [id number] 18:46:00 Test Item Value Reference Range Interpretation Comments UA Ketones (test code = UA Negative mg/dL Ketones) [facility] AND [id number] 18:46:00 Test Item Value Reference Range Interpretation Comments UA Bili (test code = Negative *NA*(07/22/14 UA Bili) 1:46 PM) [facility] AND [id number] 18:46:00 Test Item Value Reference Range Interpretation Comments UA Bacteria (test code = UA Occasional /HPF Bacteria) [facility] AND [id number] 18:46:00 Test Item Value Reference Range Interpretation Comments UA RBC (test code = no gt See_Comment [Automa elizabeth message] The UA RBC) system which ge nerated this result transmit eliazbeth reference range : <=2. The reference range was not used to interpr et this result as lukas l/abnormal. [facility] AND [id number] 18:46:00 Test Item Value Reference Range Interpretation Comments UA WBC (test code = 1 See_Comment [Automa elizabeth message] The UA WBC) system which ge nerated this result transmit elizabeth reference range : <=5. The reference range was not used to interpr et this result as lukas l/abnormal. [facility] AND [id number] 18:46:00 Test Item Value Reference Range Interpretation Comments UA Glucose (test code = UA Glucose) 30 mg/dL [facility] AND [id number] 18:46:00 Test Item Value Reference Range Interpretation Comments UA Protein (test code = UA Negative mg/dL Protein) [facility] AND [id number] 18:46:00 Test Item Value Reference Range Interpretation Comments UA pH (test code = UA pH) 6.5 5.0-8.0 [facility] [id number] 18:46:00 Test Item Value Reference Range Interpretation Comments UA Turbidity (test code = Clear (07/22/14 1:46 UA Turbidity) PM) [facility] AND [id number] 18:46:00 Test Item Value Reference Range Interpretation Comments UA Spec Grav (test code = UA Spec Grav) 1.[address] [facility] AND [id number] 18:46:00 Test Item Value Reference Range Interpretation Comments UA Color (test code = Light Yellow UA Color) *NA*(07/22/14 1:46 PM) [facility] [id number] 18:46:00 Test Item Value Reference Range Interpretation Comments Magnesium Lvl (test code = Magnesium 1.8 1.8-2.4 Lvl) [facility] HospitalLbzssrhQFPDBNSQQJWL5217-63-40 18:46:00 Test Item Value Reference Range Interpretation Comments AGAP (test code = AGAP) 13.2 10.0-20.0 [facility] CenterRcowwwjQEJTDQHDYMEQ2715-38-22 18:46:00 Test Item Value Reference Range Interpretation Comments B/C Ratio (test code = B/C Ratio) 18 6-25 [facility] CenterKamkhawFNBNTNCFAPBL9786-38-63 18:46:00 Test Item Value Reference Range Interpretation Comments A/G Ratio (test code = A/G Ratio) 1.1 0.7-1.6 [facility] HospitalWxldaioLKKRLQLMYIXF4695-03-51 18:46:00 Test Item Value Reference Range Interpretation Comments Globulin (test code = Globulin) 3.3 2.0-4.0 [facility] HospitalIwuinayAGTEFUTRLKEX5190-55-34 18:46:00 Test Item Value Reference Range Interpretation Comments eGFR (test code = eGFR) 99 [facility] CenterYvhiyrhFZUOQSCGOHOC9154-60-97 18:46:00 Test Item Value Reference Range Interpretation Comments Calcium Lvl (test code = Calcium Lvl) 9.0 8.5-10.5 [facility] HospitalXvbraloCBLFMXYEKLVR9348-02-69 18:46:00 Test Item Value Reference Range Interpretation Comments Chloride Lvl (test code = Chloride Lvl) 106 95-109 [facility] CenterSblbqrkMORTPUXBZOQR7748-99-13 18:46:00 Test Item Value Reference Range Interpretation Comments Creatinine Lvl (test code = Creatinine 0.9 0.5-1.4 Lvl) [facility] CenterZunnvkkCNLLASWVJRKJ3312-77-51 18:46:00 Test Item Value Reference Range Interpretation Comments Potassium Lvl (test code = Potassium 4.2 3.5-5.1 Lvl) [facility] CenterBydlmxhRAHENNHEELPT7820-66-72 18:46:00 Test Item Value Reference Range Interpretation Comments Sodium Lvl (test code = Sodium Lvl) 139 135-145 [facility] CenterNuotibnGEDQRWOUSCMV5518-43-05 18:46:00 Test Item Value Reference Range Interpretation Comments CO2 (test code = CO2) 24 24-32 [facility] CenterMhbbglyEOFJTIVSTURF6671-38-15 18:46:00 Test Item Value Reference Range Interpretation Comments BUN (test code = BUN) 16 7-22 [facility] CenterEtntkuuUEBCUXYRCPDN4301-57-24 18:46:00 Test Item Value Reference Range Interpretation Comments Glucose Lvl (test code = Glucose Lvl) 141 70-99 [facility] CenterYxyctowJCTMNTFYBCBD8375-59-15 18:46:00 Test Item Value Reference Range Interpretation Comments Albumin Lvl (test code = Albumin Lvl) 3.6 3.5-5.0 [facility] CenterRnejalcJQYSADCZZTHG8854-75-95 18:46:00 Test Item Value Reference Range Interpretation Comments Alk Phos (test code = Alk Phos) 65 39-136 [facility] CenterQlwpflsEMKDVHJWKOSA0596-49-66 18:46:00 Test Item Value Reference Range Interpretation Comments Bili Total (test code = Bili Total) 0.3 0.2-1.3 [facility] CenterCinpbcaTMXSEYKPSBBA5217-09-33 18:46:00 Test Item Value Reference Range Interpretation Comments ALT (test code = ALT) 100 See_Comment [Auto mated message] The system which ge nerated this result transmit elizabeth reference range : <=65. The reference range was not used to interpr et this result as lukas l/abnormal. [facility] CenterEjcnkxyTZDKELJCRHAR8874-92-69 18:46:00 Test Item Value Reference Range Interpretation Comments AST (test code = AST) 53 See_Comment [Auto mated message] The system which ge nerated this result transmit elizabeth reference range : <=37. The reference range was not used to interpr et this result as lukas l/abnormal. [facility] CenterWkvtgdbYZJRXPIPPWQX0186-06-39 18:46:00 Test Item Value Reference Range Interpretation Comments Total Protein (test code = Total 6.9 6.4-8.4 Protein) [facility] CenterRmylbtqUJOJHDMTRC7533-72-49 18:46:00 Test Item Value Reference Range Interpretation Comments Eosinophils (test code = 4.2 See_Comment [A utomated message] The Eosinophils) system which ge nerated this result tra nsmitted reference range : <=4.0. The reference r mitra was not used to int erpret this result as normal/abnormal . [facility] CenterYqweantVRDCAVJYFF2148-46-41 18:46:00 Test Item Value Reference Range Interpretation Comments Segs (test code = Segs) 56.4 45.0-75.0 [facility] CenterCuvryysKRMPZEFVQE2169-13-94 18:46:00 Test Item Value Reference Range Interpretation Comments Monocytes (test code = Monocytes) 10.3 2.0-12.0 [facility] CenterGtcmssiUOOKRKQUZK2808-91-65 18:46:00 Test Item Value Reference Range Interpretation Comments Lymphocytes (test code = Lymphocytes) 28.0 20.0-40.0 [facility] CenterQaynmykAEMSNNRRXV3633-34-40 18:46:00 Test Item Value Reference Range Interpretation Comments Monocytes # (test code 0.5 See_Comment [Aut omated message] The = Monocytes #) system which generated this result tra nsmitted reference range : <=0.8. The reference r mitra was not used to int erpret this result as normal/abnormal . [facility] CenterBsfgepqLDVCCXILCU5198-61-35 18:46:00 Test Item Value Reference Range Interpretation Comments Basophils (test code = 1.1 See_Comment [Aut omated message] The Basophils) system which ge nerated this result tra nsmitted reference range : <=1.0. The reference r mitra was not used to int erpret this result as normal/abnormal . [facility] CenterZmmzoorPBUIINZIQH6888-25-26 18:46:00 Test Item Value Reference Range Interpretation Comments Lymphocytes # (test code = Lymphocytes 1.5 1.0-5.5 #) [facility] CenterJwtogpuSZNHQFOJOM6228-98-04 18:46:00 Test Item Value Reference Range Interpretation Comments Segs-Bands # (test code = Segs-Bands #) 2.9 1.5-8.1 [facility] CenterTgnydnkQQOJPLGXPK6972-29-50 18:46:00 Test Item Value Reference Range Interpretation Comments Eosinophils # (test code 0.2 See_Comment [A utomated message] The = Eosinophils #) system whic h generated this result tra nsmitted reference range : <=0.5. The reference r mitra was not used to int erpret this result as normal/abnormal . [facility] CenterQxlrkqbQKGOZHLBCW5347-99-11 18:46:00 Test Item Value Reference Range Interpretation Comments Basophils # (test code 0.1 See_Comment [Aut omated message] The = Basophils #) system which generated this result tra nsmitted reference range : <=0.2. The reference r mitra was not used to int erpret this result as normal/abnormal . [facility] CenterQggtxhgAJGOYJSXED8485-69-93 18:46:00 Test Item Value Reference Range Interpretation Comments PT (test code = PT) 11.2 s 12.0-14.7 [facility] CenterXlbaquiVTKDKESOWE8559-96-20 18:46:00 Test Item Value Reference Range Interpretation Comments INR (test code = INR) 0.82 0.85-1.17 [facility] CenterXndgwvlEJBLHXIORJ9883-86-80 18:46:00 Test Item Value Reference Range Interpretation Comments PTT (test code = PTT) 28.6 s 22.9-35.8 [facility] CenterFxwsawzKJQPEWTXHG0499-03-62 18:46:00 Test Item Value Reference Range Interpretation Comments MPV (test code = MPV) 8.1 7.4-10.4 [facility] CenterZrvxtxgMFONGWJXPG5911-76-25 18:46:00 Test Item Value Reference Range Interpretation Comments Platelet (test code = Platelet) 301 133-450 [facility] CenterMgoeopoNXTHUEVPJG1942-08-41 18:46:00 Test Item Value Reference Range Interpretation Comments RDW (test code = RDW) 14.5 11.5-14.5 [facility] CenterWmvrutdDRQUFPAFRQ4800-52-03 18:46:00 Test Item Value Reference Range Interpretation Comments RBC (test code = RBC) 4.84 4.70-6.10 [facility] CenterKdwqqagLIYBIZWOWH3987-98-98 18:46:00 Test Item Value Reference Range Interpretation Comments Hgb (test code = Hgb) 14.4 14.0-18.0 [facility] HospitalPkaxgopXCBJYKIMIT3528-97-28 18:46:00 Test Item Value Reference Range Interpretation Comments WBC (test code = WBC) 5.2 3.7-10.4 [facility] HospitalEbfvnfzBEBGCAIGWL2041-02-70 18:46:00 Test Item Value Reference Range Interpretation Comments MCH (test code = MCH) 29.8 pg 27.0-31.0 [facility] HospitalYmxudcsUHDOMAMQLB9510-80-30 18:46:00 Test Item Value Reference Range Interpretation Comments MCV (test code = MCV) 92.0 80.0-94.0 [facility] HospitalTxryionFSLHZNSPPB4952-23-54 18:46:00 Test Item Value Reference Range Interpretation Comments Hct (test code = Hct) 44.5 42.0-54.0 [facility] HospitalFjgxazbGMQVPMCTKH4714-54-51 18:46:00 Test Item Value Reference Range Interpretation Comments MCHC (test code = MCHC) 32.4 32.0-36.0 [facility] HospitalYzotcbsOFRBZBLDEP5663-33-34 18:46:00 Test Item Value Reference Range Interpretation Comments [place]Hep C Ab (test Negative *NA*(07/22/14 code = [place]-Hep C 1:46 PM) Ab) [facility] AND [id number] 18:46:00 Test Item Value Reference Range Interpretation Comments UA Urobilinogen (test code = UA <=1.0 mg/dL 0.1-1.0 Urobilinogen) [facility] AND [id number] 18:46:00 Test Item Value Reference Range Interpretation Comments UA Sq Epi (test code = UA Sq Epi) None Seen [facility] AND [id number] 18:46:00 Test Item Value Reference Range Interpretation Comments UA Leuk Est (test Negative (07/22/14 1:46 code = UA Leuk Est) PM) [facility] AND [id number] 18:46:00 Test Item Value Reference Range Interpretation Comments UA Nitrite (test code Negative (07/22/14 1:46 = UA Nitrite) PM) [facility] AND [id number] 18:46:00 Test Item Value Reference Range Interpretation Comments UA Blood (test code = Negative (07/22/14 1:46 UA Blood) PM) [facility] AND [id number] 18:46:00 Test Item Value Reference Range Interpretation Comments UA Ketones (test code = UA Negative mg/dL Ketones) [facility] AND [id number] 18:46:00 Test Item Value Reference Range Interpretation Comments UA Bili (test code = Negative *NA*(07/22/14 UA Bili) 1:46 PM) [facility] AND [id number] 18:46:00 Test Item Value Reference Range Interpretation Comments UA Bacteria (test code = UA Occasional /HPF Bacteria) [facility] AND [id number] 18:46:00 Test Item Value Reference Range Interpretation Comments UA RBC (test code = no gt See_Comment [Automa elizabeth message] The UA RBC) system which ge nerated this result transmit elizabeth reference range : <=2. The reference range was not used to interpr et this result as lukas l/abnormal. [facility] AND [id number] 18:46:00 Test Item Value Reference Range Interpretation Comments UA WBC (test code = 1 See_Comment [Automa elizabeth message] The UA WBC) system which ge nerated this result transmit elizabeth reference range : <=5. The reference range was not used to interpr et this result as lukas l/abnormal. [facility] AND [id number] 18:46:00 Test Item Value Reference Range Interpretation Comments UA Glucose (test code = UA Glucose) 30 mg/dL [facility] AND [id number] 18:46:00 Test Item Value Reference Range Interpretation Comments UA Protein (test code = UA Negative mg/dL Protein) [facility] AND [id number] 18:46:00 Test Item Value Reference Range Interpretation Comments UA pH (test code = UA pH) 6.5 5.0-8.0 [facility] AND [id number] 18:46:00 Test Item Value Reference Range Interpretation Comments UA Turbidity (test code = Clear (07/22/14 1:46 UA Turbidity) PM) [facility] AND [id number] 18:46:00 Test Item Value Reference Range Interpretation Comments UA Spec Grav (test code = UA Spec Grav) 1.[address] [facility] AND [id number] 18:46:00 Test Item Value Reference Range Interpretation Comments UA Color (test code = Light Yellow UA Color) *NA*(07/22/14 1:46 PM) [facility]2015-06-09 18:46:00 Test Item Value Reference Range Interpretation Comments Magnesium Lvl (test code = Magnesium 1.8 1.8-2.4 Lvl) [facility] CenterZvvcjwpMHGGPYJPKIZR5286-92-84 18:46:00 Test Item Value Reference Range Interpretation Comments AGAP (test code = AGAP) 13.2 10.0-20.0 [facility] CenterLtfgfftYEOADOFFIRKR2141-84-82 18:46:00 Test Item Value Reference Range Interpretation Comments B/C Ratio (test code = B/C Ratio) 18 6-25 [facility] CenterJuyvhwrLGLYVLHFWBUU7243-53-31 18:46:00 Test Item Value Reference Range Interpretation Comments A/G Ratio (test code = A/G Ratio) 1.1 0.7-1.6 [facility] CenterDjsxlznOERZCFCTHQPO9772-93-44 18:46:00 Test Item Value Reference Range Interpretation Comments Globulin (test code = Globulin) 3.3 2.0-4.0 [facility] CenterRiqvkytLEVIXYZBVLWG8354-87-96 18:46:00 Test Item Value Reference Range Interpretation Comments eGFR (test code = eGFR) 99 [facility] CenterMrvpciaYPBPRZENHVVN1826-93-19 18:46:00 Test Item Value Reference Range Interpretation Comments Calcium Lvl (test code = Calcium Lvl) 9.0 8.5-10.5 [facility] CenterLdljcitZPRGIRWKMPUU6672-24-67 18:46:00 Test Item Value Reference Range Interpretation Comments Chloride Lvl (test code = Chloride Lvl) 106 95-109 [facility] CenterVolqxzrPROIRMFLKZML5233-85-89 18:46:00 Test Item Value Reference Range Interpretation Comments Creatinine Lvl (test code = Creatinine 0.9 0.5-1.4 Lvl) [facility] CenterCcuodgkGBIXZTMZSFLZ3923-95-05 18:46:00 Test Item Value Reference Range Interpretation Comments Potassium Lvl (test code = Potassium 4.2 3.5-5.1 Lvl) [facility] CenterEyyuvamYOGGFIRVPNYR2188-97-36 18:46:00 Test Item Value Reference Range Interpretation Comments Sodium Lvl (test code = Sodium Lvl) 139 135-145 [facility] CenterStwzxqqBUAGSEBITDDN1985-84-45 18:46:00 Test Item Value Reference Range Interpretation Comments CO2 (test code = CO2) 24 24-32 [facility] CenterIyqglveJXBUREGYHFLZ6239-74-67 18:46:00 Test Item Value Reference Range Interpretation Comments BUN (test code = BUN) 16 7-22 [facility] CenterFyeaxriMYHBSMBJIFCT7822-60-75 18:46:00 Test Item Value Reference Range Interpretation Comments Glucose Lvl (test code = Glucose Lvl) 141 70-99 [facility] CenterHvsxctlPLZJTRMGJGGU5177-36-88 18:46:00 Test Item Value Reference Range Interpretation Comments Albumin Lvl (test code = Albumin Lvl) 3.6 3.5-5.0 [facility] CenterAyljelrAHKHIWFBXAJF9634-43-36 18:46:00 Test Item Value Reference Range Interpretation Comments Alk Phos (test code = Alk Phos) 65 39-136 [facility] CenterOgmwiraYBKACYBZPCBJ9279-07-70 18:46:00 Test Item Value Reference Range Interpretation Comments Bili Total (test code = Bili Total) 0.3 0.2-1.3 [facility] CenterNqbfxifQSGGHHERDNKG6717-00-54 18:46:00 Test Item Value Reference Range Interpretation Comments ALT (test code = ALT) 100 See_Comment [Auto mated message] The system which ge nerated this result transmit elizabeth reference range : <=65. The reference range was not used to interpr et this result as lukas l/abnormal. [facility] CenterVkurwzfDYNVGBDGEGQZ2072-80-81 18:46:00 Test Item Value Reference Range Interpretation Comments AST (test code = AST) 53 See_Comment [Auto mated message] The system which ge nerated this result transmit elizabeth reference range : <=37. The reference range was not used to interpr et this result as lukas l/abnormal. [facility] CenterSvqkpraFTNLKEIFTBHS5565-45-53 18:46:00 Test Item Value Reference Range Interpretation Comments Total Protein (test code = Total 6.9 6.4-8.4 Protein) [facility] HospitalDgstxnwAFDWQSYFDX3459-17-05 18:46:00 Test Item Value Reference Range Interpretation Comments Eosinophils (test code = 4.2 See_Comment [A utomated message] The Eosinophils) system which ge nerated this result tra nsmitted reference range : <=4.0. The reference r mirta was not used to int erpret this result as normal/abnormal . [facility] CenterZtgamtaMWZPWHUFIU9348-11-80 18:46:00 Test Item Value Reference Range Interpretation Comments Segs (test code = Segs) 56.4 45.0-75.0 [facility] CenterPfetyldNDDPPOWZTD7722-01-29 18:46:00 Test Item Value Reference Range Interpretation Comments Monocytes (test code = Monocytes) 10.3 2.0-12.0 [facility] CenterMbzfqlyMIGTMOVAST2533-52-26 18:46:00 Test Item Value Reference Range Interpretation Comments Lymphocytes (test code = Lymphocytes) 28.0 20.0-40.0 [facility] CenterTyslmodHIWMFZPWPG2362-69-24 18:46:00 Test Item Value Reference Range Interpretation Comments Monocytes # (test code 0.5 See_Comment [Aut omated message] The = Monocytes #) system which generated this result tra nsmitted reference range : <=0.8. The reference r mitra was not used to int erpret this result as normal/abnormal . [facility] CenterQkixqynCUNEVKTALN8158-48-94 18:46:00 Test Item Value Reference Range Interpretation Comments Basophils (test code = 1.1 See_Comment [Aut omated message] The Basophils) system which ge nerated this result tra nsmitted reference range : <=1.0. The reference r mitra was not used to int erpret this result as normal/abnormal . [facility] CenterCgfhkxeSGDGLSKBGV0377-36-06 18:46:00 Test Item Value Reference Range Interpretation Comments Lymphocytes # (test code = Lymphocytes 1.5 1.0-5.5 #) [facility] CenterFpskpabSEUVROGOFW8019-66-26 18:46:00 Test Item Value Reference Range Interpretation Comments Segs-Bands # (test code = Segs-Bands #) 2.9 1.5-8.1 [facility] CenterMyojgepHMVGPBVYXH4712-06-45 18:46:00 Test Item Value Reference Range Interpretation Comments Eosinophils # (test code 0.2 See_Comment [A utomated message] The = Eosinophils #) system whic h generated this result tra nsmitted reference range : <=0.5. The reference r mitra was not used to int erpret this result as normal/abnormal . [facility] CenterQynmwyuFWCHQJEXWZ3599-11-02 18:46:00 Test Item Value Reference Range Interpretation Comments Basophils # (test code 0.1 See_Comment [Aut omated message] The = Basophils #) system which generated this result tra nsmitted reference range : <=0.2. The reference r mitra was not used to int erpret this result as normal/abnormal . [facility] CenterYvgefqyHMGBKJPSPT0230-11-43 18:46:00 Test Item Value Reference Range Interpretation Comments PT (test code = PT) 11.2 s 12.0-14.7 [facility] CenterSlvstzxRNQZZQLPWX1299-50-86 18:46:00 Test Item Value Reference Range Interpretation Comments INR (test code = INR) 0.82 0.85-1.17 [facility] CenterVbmyisfGASLKYMPLK2910-61-80 18:46:00 Test Item Value Reference Range Interpretation Comments PTT (test code = PTT) 28.6 s 22.9-35.8 [facility] CenterMpidiqkRCPZGVWTPF8605-20-92 18:46:00 Test Item Value Reference Range Interpretation Comments MPV (test code = MPV) 8.1 7.4-10.4 [facility] CenterOcncmvkORNWRKRQUR0796-86-51 18:46:00 Test Item Value Reference Range Interpretation Comments Platelet (test code = Platelet) 301 133-450 [facility] CenterEmqoiqnDFFJENJQON3270-18-48 18:46:00 Test Item Value Reference Range Interpretation Comments RDW (test code = RDW) 14.5 11.5-14.5 [facility] CenterIgawhqeXUOHPEKAWB1761-62-81 18:46:00 Test Item Value Reference Range Interpretation Comments RBC (test code = RBC) 4.84 4.70-6.10 [facility] CenterLjyxjgrXYDSAKQQON5885-62-79 18:46:00 Test Item Value Reference Range Interpretation Comments Hgb (test code = Hgb) 14.4 14.0-18.0 [facility] CenterUavvccfYINATESMCV6846-92-40 18:46:00 Test Item Value Reference Range Interpretation Comments WBC (test code = WBC) 5.2 3.7-10.4 [facility] CenterTjjpylnUZDKHRWXNC6828-94-46 18:46:00 Test Item Value Reference Range Interpretation Comments MCH (test code = MCH) 29.8 pg 27.0-31.0 [facility] CenterLvzvmjpLNJCGWMSFH4596-27-44 18:46:00 Test Item Value Reference Range Interpretation Comments MCV (test code = MCV) 92.0 80.0-94.0 [facility] CenterBtnbteqAMBABSJRJW8899-73-68 18:46:00 Test Item Value Reference Range Interpretation Comments Hct (test code = Hct) 44.5 42.0-54.0 [facility] OonlltxUUGSJKKGCW3960-73-97 18:46:00 Test Item Value Reference Range Interpretation Comments MCHC (test code = MCHC) 32.4 32.0-36.0 [facility] GlvmvijUQYECWGIWP7594-16-39 18:46:00 Test Item Value Reference Range Interpretation Comments [place]-Hep C Ab (test Negative *NA*(07/22/14 code = [place]-Hep C 1:46 PM) Ab) [facility] AND [id number] 18:46:00 Test Item Value Reference Range Interpretation Comments UA Urobilinogen (test code = UA <=1.0 mg/dL 0.1-1.0 Urobilinogen) [facility] AND [id number] 18:46:00 Test Item Value Reference Range Interpretation Comments UA Sq Epi (test code = UA Sq Epi) None Seen [facility] AND [id number] 18:46:00 Test Item Value Reference Range Interpretation Comments UA Leuk Est (test Negative (07/22/14 1:46 code = UA Leuk Est) PM) [facility] AND [id number] 18:46:00 Test Item Value Reference Range Interpretation Comments UA Nitrite (test code Negative (07/22/14 1:46 = UA Nitrite) PM) [facility] AND [id number] 18:46:00 Test Item Value Reference Range Interpretation Comments UA Blood (test code = Negative (07/22/14 1:46 UA Blood) PM) [facility] [id number] 18:46:00 Test Item Value Reference Range Interpretation Comments UA Ketones (test code = UA Negative mg/dL Ketones) [facility] [id number] 18:46:00 Test Item Value Reference Range Interpretation Comments UA Bili (test code = Negative *NA*(07/22/14 UA Bili) 1:46 PM) [facility] [id number] 18:46:00 Test Item Value Reference Range Interpretation Comments UA Bacteria (test code = UA Occasional /HPF Bacteria) [facility] [id number] 18:46:00 Test Item Value Reference Range Interpretation Comments UA RBC (test code = no gt See_Comment [Automa elizabeth message] The UA RBC) system which ge nerated this result transmit elizabeth reference range : <=2. The reference range was not used to interpr et this result as lukas l/abnormal. [facility] AND [id number] 18:46:00 Test Item Value Reference Range Interpretation Comments UA WBC (test code = 1 See_Comment [Automa elizabeth message] The UA WBC) system which ge nerated this result transmit elizabeth reference range : <=5. The reference range was not used to interpr et this result as lukas l/abnormal. [facility] AND [id number] 18:46:00 Test Item Value Reference Range Interpretation Comments UA Glucose (test code = UA Glucose) 30 mg/dL [facility] AND [id number] 18:46:00 Test Item Value Reference Range Interpretation Comments UA Protein (test code = UA Negative mg/dL Protein) [facility] AND [id number] 18:46:00 Test Item Value Reference Range Interpretation Comments UA pH (test code = UA pH) 6.5 5.0-8.0 [facility] AND [id number] 18:46:00 Test Item Value Reference Range Interpretation Comments UA Turbidity (test code = Clear (07/22/14 1:46 UA Turbidity) PM) [facility] AND [id number] 18:46:00 Test Item Value Reference Range Interpretation Comments UA Spec Grav (test code = UA Spec Grav) 1.[address] [facility] AND [id number] 18:46:00 Test Item Value Reference Range Interpretation Comments UA Color (test code = Light Yellow UA Color) *NA*(07/22/14 1:46 PM) [facility] [id number] 18:46:00 Test Item Value Reference Range Interpretation Comments Magnesium Lvl (test code = Magnesium 1.8 1.8-2.4 Lvl) [facility]landsTyvewpkFTDYGKUKQUHU8690-01-29 18:46:00 Test Item Value Reference Range Interpretation Comments AGAP (test code = AGAP) 13.2 10.0-20.0 [facility] HospitalWxknjwqLFSSLSKLAQNK2124-84-26 18:46:00 Test Item Value Reference Range Interpretation Comments B/C Ratio (test code = B/C Ratio) 18 6-25 [facility] CenterCzobxsnHBPHIWURVSGQ5603-86-65 18:46:00 Test Item Value Reference Range Interpretation Comments A/G Ratio (test code = A/G Ratio) 1.1 0.7-1.6 [facility] CenterHrhoowlZQEJTQUTGWIA4808-09-97 18:46:00 Test Item Value Reference Range Interpretation Comments Globulin (test code = Globulin) 3.3 2.0-4.0 [facility] CenterUlxnvxdCALCJODHZVSD6007-42-18 18:46:00 Test Item Value Reference Range Interpretation Comments eGFR (test code = eGFR) 99 [facility] CenterOgjjywqEKRSRMQKTQBI3437-79-61 18:46:00 Test Item Value Reference Range Interpretation Comments Calcium Lvl (test code = Calcium Lvl) 9.0 8.5-10.5 [facility] CenterDkyxxcuNULGCRNTBSRT7900-60-22 18:46:00 Test Item Value Reference Range Interpretation Comments Chloride Lvl (test code = Chloride Lvl) 106 95-109 [facility] CenterXunievvINPBTTMBAFGX9114-20-80 18:46:00 Test Item Value Reference Range Interpretation Comments Creatinine Lvl (test code = Creatinine 0.9 0.5-1.4 Lvl) [facility] CenterZqmkidpJRWAYMUAVEMX9736-84-57 18:46:00 Test Item Value Reference Range Interpretation Comments Potassium Lvl (test code = Potassium 4.2 3.5-5.1 Lvl) [facility] CenterLecodweOKPMZMSIFABO0709-55-07 18:46:00 Test Item Value Reference Range Interpretation Comments Sodium Lvl (test code = Sodium Lvl) 139 135-145 [facility] CenterKykxaubDEIRUQPUZUUT5298-98-61 18:46:00 Test Item Value Reference Range Interpretation Comments CO2 (test code = CO2) 24 24-32 [facility] CenterTvtumkqRREHXCCOXRVU1031-40-30 18:46:00 Test Item Value Reference Range Interpretation Comments BUN (test code = BUN) 16 7-22 [facility] CenterYptwyvvAHVTPZNZTVBN4958-64-73 18:46:00 Test Item Value Reference Range Interpretation Comments Glucose Lvl (test code = Glucose Lvl) 141 70-99 [facility] CenterCucgjsqAUCIMWQEJJJJ4547-28-43 18:46:00 Test Item Value Reference Range Interpretation Comments Albumin Lvl (test code = Albumin Lvl) 3.6 3.5-5.0 [facility] CenterVhfikkrYAWSOSFJFNVE7122-63-85 18:46:00 Test Item Value Reference Range Interpretation Comments Alk Phos (test code = Alk Phos) 65 39-136 [facility] CenterPromzbuIZEIVAPBYBKP9093-14-29 18:46:00 Test Item Value Reference Range Interpretation Comments Bili Total (test code = Bili Total) 0.3 0.2-1.3 [facility] CenterZldnpmhZYHEGVLSLHJH7638-85-00 18:46:00 Test Item Value Reference Range Interpretation Comments ALT (test code = ALT) 100 See_Comment [Auto mated message] The system which ge nerated this result transmit elizabeth reference range : <=65. The reference range was not used to interpr et this result as lukas l/abnormal. [facility] CenterOunvaooPZMOCBCSDJNX1546-21-27 18:46:00 Test Item Value Reference Range Interpretation Comments AST (test code = AST) 53 See_Comment [Auto mated message] The system which ge nerated this result transmit elizabeth reference range : <=37. The reference range was not used to interpr et this result as lukas l/abnormal. [facility] CenterWwtlyydUKZBYWSZDWNI1319-23-20 18:46:00 Test Item Value Reference Range Interpretation Comments Total Protein (test code = Total 6.9 6.4-8.4 Protein) [facility] CenterVnfximcWRGSVIKQQC0531-77-21 18:46:00 Test Item Value Reference Range Interpretation Comments Eosinophils (test code = 4.2 See_Comment [A utomated message] The Eosinophils) system which ge nerated this result tra nsmitted reference range : <=4.0. The reference r mitra was not used to int erpret this result as normal/abnormal . [facility] CenterRxoywfaIPXHHTUSQQ1494-61-29 18:46:00 Test Item Value Reference Range Interpretation Comments Segs (test code = Segs) 56.4 45.0-75.0 [facility] CenterOsdgvbsTJTEDZZOGN0749-49-37 18:46:00 Test Item Value Reference Range Interpretation Comments Monocytes (test code = Monocytes) 10.3 2.0-12.0 [facility] CenterMpqkdzaETHTLXCDYO2769-92-60 18:46:00 Test Item Value Reference Range Interpretation Comments Lymphocytes (test code = Lymphocytes) 28.0 20.0-40.0 [facility] CenterWnzmupdXXDOHPDSHL7455-79-12 18:46:00 Test Item Value Reference Range Interpretation Comments Monocytes # (test code 0.5 See_Comment [Aut omated message] The = Monocytes #) system which generated this result tra nsmitted reference range : <=0.8. The reference r mitra was not used to int erpret this result as normal/abnormal . [facility] CenterMfinigtSBVBEDCOZH9708-90-30 18:46:00 Test Item Value Reference Range Interpretation Comments Basophils (test code = 1.1 See_Comment [Aut omated message] The Basophils) system which ge nerated this result tra nsmitted reference range : <=1.0. The reference r mitra was not used to int erpret this result as normal/abnormal . [facility] CenterIgumtscVTCGNHHNYJ2183-64-27 18:46:00 Test Item Value Reference Range Interpretation Comments Lymphocytes # (test code = Lymphocytes 1.5 1.0-5.5 #) [facility] CenterZbrlpaeOWDKPKZPJI1400-68-38 18:46:00 Test Item Value Reference Range Interpretation Comments Segs-Bands # (test code = Segs-Bands #) 2.9 1.5-8.1 [facility] CenterCkrhadrAPUMFUPDSG0372-23-92 18:46:00 Test Item Value Reference Range Interpretation Comments Eosinophils # (test code 0.2 See_Comment [A utomated message] The = Eosinophils #) system whic h generated this result tra nsmitted reference range : <=0.5. The reference r mitra was not used to int erpret this result as normal/abnormal . [facility] CenterCqlyojnZXTJGIWJAW8298-19-63 18:46:00 Test Item Value Reference Range Interpretation Comments Basophils # (test code 0.1 See_Comment [Aut omated message] The = Basophils #) system which generated this result tra nsmitted reference range : <=0.2. The reference r mitra was not used to int erpret this result as normal/abnormal . [facility] CenterRrocmcbMDEOZBFZNS3149-49-14 18:46:00 Test Item Value Reference Range Interpretation Comments PT (test code = PT) 11.2 s 12.0-14.7 [facility] CenterMmbmtxiSASQQVMYMV5735-37-33 18:46:00 Test Item Value Reference Range Interpretation Comments INR (test code = INR) 0.82 0.85-1.17 [facility] CenterDxaqlwpBNUPIZCGUQ0267-42-16 18:46:00 Test Item Value Reference Range Interpretation Comments PTT (test code = PTT) 28.6 s 22.9-35.8 [facility]OibbrdoHWTBVSSRNU9413-91-53 18:46:00 Test Item Value Reference Range Interpretation Comments MPV (test code = MPV) 8.1 7.4-10.4 [facility] HospitalJvqkpkaVGSPJSXYTZ1621-16-41 18:46:00 Test Item Value Reference Range Interpretation Comments Platelet (test code = Platelet) 301 133-450 [facility] HospitalNzkzqweQZEEKJCDAM5396-74-68 18:46:00 Test Item Value Reference Range Interpretation Comments RDW (test code = RDW) 14.5 11.5-14.5 [facility] HospitalXwalbgnDHFHZMOHWF7832-21-66 18:46:00 Test Item Value Reference Range Interpretation Comments RBC (test code = RBC) 4.84 4.70-6.10 [facility] HospitalUynufprXLFWDJOQYN1585-12-01 18:46:00 Test Item Value Reference Range Interpretation Comments Hgb (test code = Hgb) 14.4 14.0-18.0 [facility] HospitalXewjbndNPJUBCAQZC9101-35-60 18:46:00 Test Item Value Reference Range Interpretation Comments WBC (test code = WBC) 5.2 3.7-10.4 [facility] HospitalIkvedxxSYDIWWJLKL6177-57-01 18:46:00 Test Item Value Reference Range Interpretation Comments MCH (test code = MCH) 29.8 pg 27.0-31.0 [facility] HospitalUjbuekvZRRRIWEBPN0459-19-88 18:46:00 Test Item Value Reference Range Interpretation Comments MCV (test code = MCV) 92.0 80.0-94.0 [facility]rmszuzWRUMGWSPYJ9231-30-08 18:46:00 Test Item Value Reference Range Interpretation Comments Hct (test code = Hct) 44.5 42.0-54.0 [facility] HospitalJfedbzhLZAXBENZDT3652-03-18 18:46:00 Test Item Value Reference Range Interpretation Comments MCHC (test code = MCHC) 32.4 32.0-36.0 [facility] HospitalXbguuzcZEHSAMIIBV7236-01-22 18:46:00 Test Item Value Reference Range Interpretation Comments [place]Hep C Ab (test Negative *NA*(07/22/14 code = [place]-Hep C 1:46 PM) Ab) [facility] AND [id number] 18:46:00 Test Item Value Reference Range Interpretation Comments UA Urobilinogen (test code = UA <=1.0 mg/dL 0.1-1.0 Urobilinogen) [facility] AND [id number] 18:46:00 Test Item Value Reference Range Interpretation Comments UA Sq Epi (test code = UA Sq Epi) None Seen [facility] AND [id number] 18:46:00 Test Item Value Reference Range Interpretation Comments UA Leuk Est (test Negative (07/22/14 1:46 code = UA Leuk Est) PM) [facility] AND [id number] 18:46:00 Test Item Value Reference Range Interpretation Comments UA Nitrite (test code Negative (07/22/14 1:46 = UA Nitrite) PM) [facility] AND [id number] 18:46:00 Test Item Value Reference Range Interpretation Comments UA Blood (test code = Negative (07/22/14 1:46 UA Blood) PM) [facility] AND [id number] 18:46:00 Test Item Value Reference Range Interpretation Comments UA Ketones (test code = UA Negative mg/dL Ketones) [facility] AND [id number] 18:46:00 Test Item Value Reference Range Interpretation Comments UA Bili (test code = Negative *NA*(07/22/14 UA Bili) 1:46 PM) [facility] AND [id number] 18:46:00 Test Item Value Reference Range Interpretation Comments UA Bacteria (test code = UA Occasional /HPF Bacteria) [facility] AND [id number] 18:46:00 Test Item Value Reference Range Interpretation Comments UA RBC (test code = no gt See_Comment [Automa elizabeth message] The UA RBC) system which ge nerated this result transmit elizabeth reference range : <=2. The reference range was not used to interpr et this result as lukas l/abnormal. [facility] AND [id number] 18:46:00 Test Item Value Reference Range Interpretation Comments UA WBC (test code = 1 See_Comment [Automa elizabeth message] The UA WBC) system which ge nerated this result transmit elizabeth reference range : <=5. The reference range was not used to interpr et this result as lukas l/abnormal. [facility] AND [id number] 18:46:00 Test Item Value Reference Range Interpretation Comments UA Glucose (test code = UA Glucose) 30 mg/dL [facility] AND [id number] 18:46:00 Test Item Value Reference Range Interpretation Comments UA Protein (test code = UA Negative mg/dL Protein) [facility] AND [id number] 18:46:00 Test Item Value Reference Range Interpretation Comments UA pH (test code = UA pH) 6.5 5.0-8.0 [facility] AND [id number] 18:46:00 Test Item Value Reference Range Interpretation Comments UA Turbidity (test code = Clear (07/22/14 1:46 UA Turbidity) PM) [facility] AND [id number] 18:46:00 Test Item Value Reference Range Interpretation Comments UA Spec Grav (test code = UA Spec Grav) 1.010 [facility] AND [id number] 18:46:00 Test Item Value Reference Range Interpretation Comments UA Color (test code = Light Yellow UA Color) *NA*(07/22/14 1:46 PM) [facility] [id number] 18:46:00 Test Item Value Reference Range Interpretation Comments Magnesium Lvl (test code = Magnesium 1.8 1.8-2.4 Lvl) [facility] CenterGxmwwckUUBGLUBTZVMA1260-97-42 18:46:00 Test Item Value Reference Range Interpretation Comments AGAP (test code = AGAP) 13.2 10.0-20.0 [facility] CenterNsvnvceKMHQTWLHXUQB1147-62-31 18:46:00 Test Item Value Reference Range Interpretation Comments B/C Ratio (test code = B/C Ratio) 18 6-25 [facility] CenterLrhypwjMRMRKEXDQZVD2947-13-02 18:46:00 Test Item Value Reference Range Interpretation Comments A/G Ratio (test code = A/G Ratio) 1.1 0.7-1.6 [facility] CenterJyiohslTUYZSMSYXVYU2030-93-05 18:46:00 Test Item Value Reference Range Interpretation Comments Globulin (test code = Globulin) 3.3 2.0-4.0 [facility] CenterFijohqaZLOKZPHYVAXP7828-10-61 18:46:00 Test Item Value Reference Range Interpretation Comments eGFR (test code = eGFR) 99 [facility] CenterWbuvofrRIMNSFECKHOZ6127-45-30 18:46:00 Test Item Value Reference Range Interpretation Comments Calcium Lvl (test code = Calcium Lvl) 9.0 8.5-10.5 [facility] CenterWepytyxFTOMPNMGJSOE9121-54-22 18:46:00 Test Item Value Reference Range Interpretation Comments Chloride Lvl (test code = Chloride Lvl) 106 95-109 [facility] CenterRotneosNIQXHJPBUOUX3059-62-47 18:46:00 Test Item Value Reference Range Interpretation Comments Creatinine Lvl (test code = Creatinine 0.9 0.5-1.4 Lvl) [facility] CenterSjzqhsuCGAJBMKRNVWT5929-47-55 18:46:00 Test Item Value Reference Range Interpretation Comments Potassium Lvl (test code = Potassium 4.2 3.5-5.1 Lvl) [facility] CenterQlypdqiPSSGOAAZSRHB4064-58-30 18:46:00 Test Item Value Reference Range Interpretation Comments Sodium Lvl (test code = Sodium Lvl) 139 135-145 [facility] CenterIpiifkyAKPOJAWPKYXD0665-25-04 18:46:00 Test Item Value Reference Range Interpretation Comments CO2 (test code = CO2) 24 24-32 [facility] CenterOewbvvmPHJVKJTRJIRL4636-80-65 18:46:00 Test Item Value Reference Range Interpretation Comments BUN (test code = BUN) 16 7-22 [facility] CenterMnouydiSBLKJYLIOJPL9483-61-41 18:46:00 Test Item Value Reference Range Interpretation Comments Glucose Lvl (test code = Glucose Lvl) 141 70-99 [facility] CenterSoctpgsHLZEVOPLWRXG3193-45-13 18:46:00 Test Item Value Reference Range Interpretation Comments Albumin Lvl (test code = Albumin Lvl) 3.6 3.5-5.0 [facility] CenterPduoytsMVZJZXJIZLAI9803-20-60 18:46:00 Test Item Value Reference Range Interpretation Comments Alk Phos (test code = Alk Phos) 65 39-136 [facility] CenterRjgojonQUNSJDBUWKTL9609-27-62 18:46:00 Test Item Value Reference Range Interpretation Comments Bili Total (test code = Bili Total) 0.3 0.2-1.3 [facility] CenterPdhaihuVPGDWKSHSLAN5255-85-95 18:46:00 Test Item Value Reference Range Interpretation Comments ALT (test code = ALT) 100 See_Comment [Auto mated message] The system which ge nerated this result transmit elizabeth reference range : <=65. The reference range was not used to interpr et this result as lukas l/abnormal. [facility] CenterGxrozvlTQVHVSWVSUEP9964-83-15 18:46:00 Test Item Value Reference Range Interpretation Comments AST (test code = AST) 53 See_Comment [Auto mated message] The system which ge nerated this result transmit elizabeth reference range : <=37. The reference range was not used to interpr et this result as lukas l/abnormal. [facility] CenterFuuhbxcJSZVBRIHKVWT6568-96-84 18:46:00 Test Item Value Reference Range Interpretation Comments Total Protein (test code = Total 6.9 6.4-8.4 Protein) [facility] CenterKgxbpxrTBZWYHEYAN9512-40-87 18:46:00 Test Item Value Reference Range Interpretation Comments Eosinophils (test code = 4.2 See_Comment [A utomated message] The Eosinophils) system which ge nerated this result tra nsmitted reference range : <=4.0. The reference r mitra was not used to int erpret this result as normal/abnormal . [facility] CenterPcymppzMIAMVKTAMW6942-99-15 18:46:00 Test Item Value Reference Range Interpretation Comments Segs (test code = Segs) 56.4 45.0-75.0 [facility] CenterPkfcuxcDYEDXZYNUY9465-79-88 18:46:00 Test Item Value Reference Range Interpretation Comments Monocytes (test code = Monocytes) 10.3 2.0-12.0 [facility] CenterDsoanpiNLGMELLXVX5138-55-13 18:46:00 Test Item Value Reference Range Interpretation Comments Lymphocytes (test code = Lymphocytes) 28.0 20.0-40.0 [facility] CenterYssolngIIKTSZGLZL1475-63-48 18:46:00 Test Item Value Reference Range Interpretation Comments Monocytes # (test code 0.5 See_Comment [Aut omated message] The = Monocytes #) system which generated this result tra nsmitted reference range : <=0.8. The reference r mitra was not used to int erpret this result as normal/abnormal . [facility] CenterPvfcbdjOQQWVPXNHD4101-63-18 18:46:00 Test Item Value Reference Range Interpretation Comments Basophils (test code = 1.1 See_Comment [Aut omated message] The Basophils) system which ge nerated this result tra nsmitted reference range : <=1.0. The reference r mitra was not used to int erpret this result as normal/abnormal . [facility] CenterMhdkipwGTQIJJOSWN8611-74-78 18:46:00 Test Item Value Reference Range Interpretation Comments Lymphocytes # (test code = Lymphocytes 1.5 1.0-5.5 #) [facility] CenterAfoxuesXZEXQJGUPN5359-70-13 18:46:00 Test Item Value Reference Range Interpretation Comments Segs-Bands # (test code = Segs-Bands #) 2.9 1.5-8.1 [facility] CenterSwwwaglFBKXSWAWRK0312-97-79 18:46:00 Test Item Value Reference Range Interpretation Comments Eosinophils # (test code 0.2 See_Comment [A utomated message] The = Eosinophils #) system whic h generated this result tra nsmitted reference range : <=0.5. The reference r mitra was not used to int erpret this result as normal/abnormal . [facility] CenterIquvkbdPLEGGUUYSL8918-92-97 18:46:00 Test Item Value Reference Range Interpretation Comments Basophils # (test code 0.1 See_Comment [Aut omated message] The = Basophils #) system which generated this result tra nsmitted reference range : <=0.2. The reference r mitra was not used to int erpret this result as normal/abnormal . [facility] CenterDkbsdczGJQCDLNZZZ9993-82-04 18:46:00 Test Item Value Reference Range Interpretation Comments PT (test code = PT) 11.2 s 12.0-14.7 [facility] CenterLlykrjwXGFVZMIQZU4225-40-45 18:46:00 Test Item Value Reference Range Interpretation Comments INR (test code = INR) 0.82 0.85-1.17 [facility] CenterZgzttsvVGGGBTHWYQ9239-54-54 18:46:00 Test Item Value Reference Range Interpretation Comments PTT (test code = PTT) 28.6 s 22.9-35.8 [facility] CenterQotsiahHUXKQFSERB6290-48-99 18:46:00 Test Item Value Reference Range Interpretation Comments MPV (test code = MPV) 8.1 7.4-10.4 [facility] CenterGusiapbCQQBNFYIVY5555-13-40 18:46:00 Test Item Value Reference Range Interpretation Comments Platelet (test code = Platelet) 301 133-450 [facility] CenterHidcfatSOFIJGQCSH1285-77-95 18:46:00 Test Item Value Reference Range Interpretation Comments RDW (test code = RDW) 14.5 11.5-14.5 [facility] CenterZtzdnfpNQVXMBVDBT6246-00-51 18:46:00 Test Item Value Reference Range Interpretation Comments RBC (test code = RBC) 4.84 4.70-6.10 [facility] CenterFrppscgYNHVPTBFMH1593-21-75 18:46:00 Test Item Value Reference Range Interpretation Comments Hgb (test code = Hgb) 14.4 14.0-18.0 [facility] CenterWqiqnhhTZXFVBFWFB2157-27-88 18:46:00 Test Item Value Reference Range Interpretation Comments WBC (test code = WBC) 5.2 3.7-10.4 [facility] CenterMxbnjkcUCLPGYWJNM2520-78-80 18:46:00 Test Item Value Reference Range Interpretation Comments MCH (test code = MCH) 29.8 pg 27.0-31.0 [facility] CenterTjpgaorUVCRCKWAFJ9595-46-67 18:46:00 Test Item Value Reference Range Interpretation Comments MCV (test code = MCV) 92.0 80.0-94.0 [facility] CenterZiateivHJCPNJHPQN2692-31-10 18:46:00 Test Item Value Reference Range Interpretation Comments Hct (test code = Hct) 44.5 42.0-54.0 [facility]OUICC4059[facility] 18:46:00 Test Item Value Reference Range Interpretation Comments MCHC (test code = MCHC) 32.4 32.0-36.0 [facility]MeibsgfQMFKDDXRGZ4137-72-93 18:46:00 Test Item Value Reference Range Interpretation Comments [place]-Hep C Ab (test Negative *NA*(07/22/14 code = [place]-Hep C 1:46 PM) Ab) [facility] AND [id number] 18:46:00 Test Item Value Reference Range Interpretation Comments UA Urobilinogen (test code = UA <=1.0 mg/dL 0.1-1.0 Urobilinogen) [facility] AND [id number] 18:46:00 Test Item Value Reference Range Interpretation Comments UA Sq Epi (test code = UA Sq Epi) None Seen [facility] AND [id number] 18:46:00 Test Item Value Reference Range Interpretation Comments UA Leuk Est (test Negative (07/22/14 1:46 code = UA Leuk Est) PM) [facility] AND [id number] 18:46:00 Test Item Value Reference Range Interpretation Comments UA Nitrite (test code Negative (07/22/14 1:46 = UA Nitrite) PM) [facility] AND [id number] 18:46:00 Test Item Value Reference Range Interpretation Comments UA Blood (test code = Negative (07/22/14 1:46 UA Blood) PM) [facility] AND [id number] 18:46:00 Test Item Value Reference Range Interpretation Comments UA Ketones (test code = UA Negative mg/dL Ketones) [facility] AND [id number] 18:46:00 Test Item Value Reference Range Interpretation Comments UA Bili (test code = Negative *NA*(07/22/14 UA Bili) 1:46 PM) [facility] AND [id number] 18:46:00 Test Item Value Reference Range Interpretation Comments UA Bacteria (test code = UA Occasional /HPF Bacteria) [facility] AND [id number] 18:46:00 Test Item Value Reference Range Interpretation Comments UA RBC (test code = no gt See_Comment [Automa elizabeth message] The UA RBC) system which ge nerated this result transmit elizabeth reference range : <=2. The reference range was not used to interpr et this result as lukas l/abnormal. [facility] AND [id number] 18:46:00 Test Item Value Reference Range Interpretation Comments UA WBC (test code = 1 See_Comment [Automa elizabeth message] The UA WBC) system which ge nerated this result transmit elizabeth reference range : <=5. The reference range was not used to interpr et this result as lukas l/abnormal. [facility] AND [id number] 18:46:00 Test Item Value Reference Range Interpretation Comments UA Glucose (test code = UA Glucose) 30 mg/dL [facility] AND [id number] 18:46:00 Test Item Value Reference Range Interpretation Comments UA Protein (test code = UA Negative mg/dL Protein) [facility] AND [id number] 18:46:00 Test Item Value Reference Range Interpretation Comments UA pH (test code = UA pH) 6.5 5.0-8.0 [facility] AND [id number] 18:46:00 Test Item Value Reference Range Interpretation Comments UA Turbidity (test code = Clear (07/22/14 1:46 UA Turbidity) PM) [facility] [id number] 18:46:00 Test Item Value Reference Range Interpretation Comments UA Spec Grav (test code = UA Spec Grav) 1.010 [facility] AND [id number] 18:46:00 Test Item Value Reference Range Interpretation Comments UA Color (test code = Light Yellow UA Color) *NA*(07/22/14 1:46 PM) [facility]CHE[facility] [id number] 18:46:00 Test Item Value Reference Range Interpretation Comments Magnesium Lvl (test code = Magnesium 1.8 1.8-2.4 Lvl) [facility]landsUmokbrcEERERBJWVHFO2786-49-39 18:46:00 Test Item Value Reference Range Interpretation Comments AGAP (test code = AGAP) 13.2 10.0-20.0 [facility] CenterLciphwxEIGVNPFAHKNT6740-13-92 18:46:00 Test Item Value Reference Range Interpretation Comments B/C Ratio (test code = B/C Ratio) 18 6-25 [facility] CenterGcekbnmUBSXWCUPRHYT4678-57-21 18:46:00 Test Item Value Reference Range Interpretation Comments A/G Ratio (test code = A/G Ratio) 1.1 0.7-1.6 [facility] CenterYiumetyDDCCHYZDJREG8485-07-51 18:46:00 Test Item Value Reference Range Interpretation Comments Globulin (test code = Globulin) 3.3 2.0-4.0 [facility] CenterBlfkdpzIHAFTSGVLVBP8149-81-94 18:46:00 Test Item Value Reference Range Interpretation Comments eGFR (test code = eGFR) 99 [facility] CenterVdgonydTSYOEFWWAXDG8555-88-41 18:46:00 Test Item Value Reference Range Interpretation Comments Calcium Lvl (test code = Calcium Lvl) 9.0 8.5-10.5 [facility] CenterYcpokunVNPVVQEUFUZB6842-89-78 18:46:00 Test Item Value Reference Range Interpretation Comments Chloride Lvl (test code = Chloride Lvl) 106 95-109 [facility] CenterWkahjvhQTZLQSESPMMQ7631-01-56 18:46:00 Test Item Value Reference Range Interpretation Comments Creatinine Lvl (test code = Creatinine 0.9 0.5-1.4 Lvl) [facility] CenterYlsqupeZVKILXNSLPFJ4542-00-78 18:46:00 Test Item Value Reference Range Interpretation Comments Potassium Lvl (test code = Potassium 4.2 3.5-5.1 Lvl) [facility] CenterZeuxcapKGEINNGKXGGJ7616-43-00 18:46:00 Test Item Value Reference Range Interpretation Comments Sodium Lvl (test code = Sodium Lvl) 139 135-145 [facility] CenterGqdavlgEJFOBSWMOARI6925-48-69 18:46:00 Test Item Value Reference Range Interpretation Comments CO2 (test code = CO2) 24 24-32 [facility] CenterGkiggrdJJZOQMBEMUZI6616-62-56 18:46:00 Test Item Value Reference Range Interpretation Comments BUN (test code = BUN) 16 7-22 [facility] CenterDpuscbxSETWOVZNGSPK0959-66-99 18:46:00 Test Item Value Reference Range Interpretation Comments Glucose Lvl (test code = Glucose Lvl) 141 70-99 [facility] CenterZlzbqypOVJYEXFMFQOX9980-13-14 18:46:00 Test Item Value Reference Range Interpretation Comments Albumin Lvl (test code = Albumin Lvl) 3.6 3.5-5.0 [facility] CenterVpvzcbhSEKPXDOIUXYC1433-76-88 18:46:00 Test Item Value Reference Range Interpretation Comments Alk Phos (test code = Alk Phos) 65 39-136 [facility] CenterGslhgxyYWYLFRUCOWVM3861-53-76 18:46:00 Test Item Value Reference Range Interpretation Comments Bili Total (test code = Bili Total) 0.3 0.2-1.3 [facility] CenterTrrtjnlBHANXGBCNXIX6253-22-48 18:46:00 Test Item Value Reference Range Interpretation Comments ALT (test code = ALT) 100 See_Comment [Auto mated message] The system which ge nerated this result transmit elizabeth reference range : <=65. The reference range was not used to interpr et this result as lukas l/abnormal. [facility] CenterHcucjxjDHSDYAUYLYOR0700-99-22 18:46:00 Test Item Value Reference Range Interpretation Comments AST (test code = AST) 53 See_Comment [Auto mated message] The system which ge nerated this result transmit elizabeth reference range : <=37. The reference range was not used to interpr et this result as lukas l/abnormal. [facility] CenterSmijkeyGLXSMQRLHAUK2701-80-49 18:46:00 Test Item Value Reference Range Interpretation Comments Total Protein (test code = Total 6.9 6.4-8.4 Protein) [facility] Cent[id number] 18:46:00 Test Item Value Reference Range Interpretation Comments Eosinophils (test code = 4.2 See_Comment [A utomated message] The Eosinophils) system which ge nerated this result tra nsmitted reference range : <=4.0. The reference r mitra was not used to int erpret this result as normal/abnormal . [facility] Cent[id number] 18:46:00 Test Item Value Reference Range Interpretation Comments Segs (test code = Segs) 56.4 45.0-75.0 [facility] CenterCwmdbodOEYTCGVLFS8217-54-38 18:46:00 Test Item Value Reference Range Interpretation Comments Monocytes (test code = Monocytes) 10.3 2.0-12.0 [facility] CenterReomzynWTHDKNRQBR0404-73-45 18:46:00 Test Item Value Reference Range Interpretation Comments Lymphocytes (test code = Lymphocytes) 28.0 20.0-40.0 [facility] CenterTgkvqxiONNOKOPDUW6892-36-39 18:46:00 Test Item Value Reference Range Interpretation Comments Monocytes # (test code 0.5 See_Comment [Aut omated message] The = Monocytes #) system which generated this result tra nsmitted reference range : <=0.8. The reference r mitra was not used to int erpret this result as normal/abnormal . [facility] CenterVdsuikpCFGLXLSUBW3711-38-11 18:46:00 Test Item Value Reference Range Interpretation Comments Basophils (test code = 1.1 See_Comment [Aut omated message] The Basophils) system which ge nerated this result tra nsmitted reference range : <=1.0. The reference r mitra was not used to int erpret this result as normal/abnormal . [facility] CenterMpyzsguGMEXBCZKGS6369-09-68 18:46:00 Test Item Value Reference Range Interpretation Comments Lymphocytes # (test code = Lymphocytes 1.5 1.0-5.5 #) [facility] CenterWxkcazfCWDDLDIKTS4009-26-84 18:46:00 Test Item Value Reference Range Interpretation Comments Segs-Bands # (test code = Segs-Bands #) 2.9 1.5-8.1 [facility] CenterYfehkmjXTKYCZSBFU9618-72-69 18:46:00 Test Item Value Reference Range Interpretation Comments Eosinophils # (test code 0.2 See_Comment [A utomated message] The = Eosinophils #) system whic h generated this result tra nsmitted reference range : <=0.5. The reference r mitra was not used to int erpret this result as normal/abnormal . [facility] CenterGxenpszAOGZDJOSDB0689-32-72 18:46:00 Test Item Value Reference Range Interpretation Comments Basophils # (test code 0.1 See_Comment [Aut omated message] The = Basophils #) system which generated this result tra nsmitted reference range : <=0.2. The reference r mitra was not used to int erpret this result as normal/abnormal . [facility] CenterRpcaazbEXEICPQNBT8299-40-30 18:46:00 Test Item Value Reference Range Interpretation Comments PT (test code = PT) 11.2 s 12.0-14.7 [facility] CenterQgxebydJTFPPUUZKJ1736-60-47 18:46:00 Test Item Value Reference Range Interpretation Comments INR (test code = INR) 0.82 0.85-1.17 [facility] CenterTnokwhzLQNLEPRWIQ6394-41-38 18:46:00 Test Item Value Reference Range Interpretation Comments PTT (test code = PTT) 28.6 s 22.9-35.8 [facility] CenterIdteideIHCTHAJNWF5287-40-36 18:46:00 Test Item Value Reference Range Interpretation Comments MPV (test code = MPV) 8.1 7.4-10.4 [facility] CenterBkbceqcVVVTAOGNJN9683-39-88 18:46:00 Test Item Value Reference Range Interpretation Comments Platelet (test code = Platelet) 301 133-450 [facility] CenterFkrcyndJUYXQOIBNG1946-03-47 18:46:00 Test Item Value Reference Range Interpretation Comments RDW (test code = RDW) 14.5 11.5-14.5 [facility] CenterOwsdrprHJVHEQUFXU3063-57-34 18:46:00 Test Item Value Reference Range Interpretation Comments RBC (test code = RBC) 4.84 4.70-6.10 [facility] CenterKumwoppITIOWUMBVG8539-83-65 18:46:00 Test Item Value Reference Range Interpretation Comments Hgb (test code = Hgb) 14.4 14.0-18.0 [facility] CenterMpbdwvwMXYYWMAAEU5172-96-66 18:46:00 Test Item Value Reference Range Interpretation Comments WBC (test code = WBC) 5.2 3.7-10.4 [facility] CenterClyymgaLUNXWKZBZT4894-56-33 18:46:00 Test Item Value Reference Range Interpretation Comments MCH (test code = MCH) 29.8 pg 27.0-31.0 [facility] HospitalBycfsscOZGYWBDNLN8667-51-39 18:46:00 Test Item Value Reference Range Interpretation Comments MCV (test code = MCV) 92.0 80.0-94.0 [facility]ypreNJDCVSUUSO9439-15-37 18:46:00 Test Item Value Reference Range Interpretation Comments Hct (test code = Hct) 44.5 42.0-54.0 [facility] HospitalKxdfvkaANADSZAAYL8538-52-74 18:46:00 Test Item Value Reference Range Interpretation Comments MCHC (test code = MCHC) 32.4 32.0-36.0 [facility] HospitalAzavonxNANZNZFUUW3751-98-85 18:46:00 Test Item Value Reference Range Interpretation Comments [place]Hep C Ab (test Negative *NA*(07/22/14 code = [place]-Hep C 1:46 PM) Ab) [facility] AND [id number] 18:46:00 Test Item Value Reference Range Interpretation Comments UA Urobilinogen (test code = UA <=1.0 mg/dL 0.1-1.0 Urobilinogen) [facility] AND [id number] 18:46:00 Test Item Value Reference Range Interpretation Comments UA Sq Epi (test code = UA Sq Epi) None Seen [facility] AND [id number] 18:46:00 Test Item Value Reference Range Interpretation Comments UA Leuk Est (test Negative (07/22/14 1:46 code = UA Leuk Est) PM) [facility] AND [id number] 18:46:00 Test Item Value Reference Range Interpretation Comments UA Nitrite (test code Negative (07/22/14 1:46 = UA Nitrite) PM) [facility] AND [id number] 18:46:00 Test Item Value Reference Range Interpretation Comments UA Blood (test code = Negative (07/22/14 1:46 UA Blood) PM) [facility] AND [id number] 18:46:00 Test Item Value Reference Range Interpretation Comments UA Ketones (test code = UA Negative mg/dL Ketones) [facility] AND [id number] 18:46:00 Test Item Value Reference Range Interpretation Comments UA Bili (test code = Negative *NA*(07/22/14 UA Bili) 1:46 PM) [facility] AND [id number] 18:46:00 Test Item Value Reference Range Interpretation Comments UA Bacteria (test code = UA Occasional /HPF Bacteria) [facility] AND [id number] 18:46:00 Test Item Value Reference Range Interpretation Comments UA RBC (test code = no gt See_Comment [Automa elizabeth message] The UA RBC) system which ge nerated this result transmit elizabeth reference range : <=2. The reference range was not used to interpr et this result as lukas l/abnormal. [facility] AND [id number] 18:46:00 Test Item Value Reference Range Interpretation Comments UA WBC (test code = 1 See_Comment [Automa elizabeth message] The UA WBC) system which ge nerated this result transmit leizabeth reference range : <=5. The reference range was not used to interpr et this result as lukas l/abnormal. [facility] AND [id number] 18:46:00 Test Item Value Reference Range Interpretation Comments UA Glucose (test code = UA Glucose) 30 mg/dL [facility] AND [id number] 18:46:00 Test Item Value Reference Range Interpretation Comments UA Protein (test code = UA Negative mg/dL Protein) [facility] AND [id number] 18:46:00 Test Item Value Reference Range Interpretation Comments UA pH (test code = UA pH) 6.5 5.0-8.0 [facility] AND [id number] 18:46:00 Test Item Value Reference Range Interpretation Comments UA Turbidity (test code = Clear (07/22/14 1:46 UA Turbidity) PM) [facility] AND [id number] 18:46:00 Test Item Value Reference Range Interpretation Comments UA Spec Grav (test code = UA Spec Grav) 1.[address] [facility] AND [id number] 18:46:00 Test Item Value Reference Range Interpretation Comments UA Color (test code = Light Yellow UA Color) *NA*(07/22/14 1:46 PM) [facility] [id number] 18:46:00 Test Item Value Reference Range Interpretation Comments Magnesium Lvl (test code = Magnesium 1.8 1.8-2.4 Lvl) [facility] CenterNlmbeqgGNBWRBPHVTGN5448-36-92 18:46:00 Test Item Value Reference Range Interpretation Comments AGAP (test code = AGAP) 13.2 10.0-20.0 [facility] CenterQmgaxniUTOSGEONSQRG3500-20-18 18:46:00 Test Item Value Reference Range Interpretation Comments B/C Ratio (test code = B/C Ratio) 18 6-25 [facility] CenterZzgolllRUOHWJHHRMMW9946-45-41 18:46:00 Test Item Value Reference Range Interpretation Comments A/G Ratio (test code = A/G Ratio) 1.1 0.7-1.6 [facility] CenterJokmgmiRQKZKPYDMXKR3842-50-80 18:46:00 Test Item Value Reference Range Interpretation Comments Globulin (test code = Globulin) 3.3 2.0-4.0 [facility] CenterPzjjyutWDYVGWYPZXEQ6502-19-61 18:46:00 Test Item Value Reference Range Interpretation Comments eGFR (test code = eGFR) 99 [facility] CenterCnmfaghRPXERKJOCXYK2802-20-05 18:46:00 Test Item Value Reference Range Interpretation Comments Calcium Lvl (test code = Calcium Lvl) 9.0 8.5-10.5 [facility] CenterVieczgrWFGTEYRJXDJK2952-86-37 18:46:00 Test Item Value Reference Range Interpretation Comments Chloride Lvl (test code = Chloride Lvl) 106 95-109 [facility] CenterIyhnlmqUELAISRWNYJH7716-29-71 18:46:00 Test Item Value Reference Range Interpretation Comments Creatinine Lvl (test code = Creatinine 0.9 0.5-1.4 Lvl) [facility] CenterCeeflphKDFFMVJMQBVV3821-51-25 18:46:00 Test Item Value Reference Range Interpretation Comments Potassium Lvl (test code = Potassium 4.2 3.5-5.1 Lvl) [facility] CenterErklsysZVCNQPVEVQFJ6826-77-95 18:46:00 Test Item Value Reference Range Interpretation Comments Sodium Lvl (test code = Sodium Lvl) 139 135-145 [facility] CenterRtimuqaHALFYZVGQKGU8770-13-45 18:46:00 Test Item Value Reference Range Interpretation Comments CO2 (test code = CO2) 24 24-32 [facility] CenterYxzsavqBVSHCKCRAZOP7194-22-15 18:46:00 Test Item Value Reference Range Interpretation Comments BUN (test code = BUN) 16 7-22 [facility] CenterXyaqwbqTSCJVGJPFXAV6310-11-93 18:46:00 Test Item Value Reference Range Interpretation Comments Glucose Lvl (test code = Glucose Lvl) 141 70-99 [facility] CenterZufvhchWXSBHMXLXDON9479-28-48 18:46:00 Test Item Value Reference Range Interpretation Comments Albumin Lvl (test code = Albumin Lvl) 3.6 3.5-5.0 [facility] CenterRzwijtnZUQYJEXSAOSG7870-63-21 18:46:00 Test Item Value Reference Range Interpretation Comments Alk Phos (test code = Alk Phos) 65 39-136 [facility] CenterYqryiiyAVYUWUJJMVOS5392-24-05 18:46:00 Test Item Value Reference Range Interpretation Comments Bili Total (test code = Bili Total) 0.3 0.2-1.3 [facility] CenterOpccaowHBWIECZEILTG6468-84-43 18:46:00 Test Item Value Reference Range Interpretation Comments ALT (test code = ALT) 100 See_Comment [Auto mated message] The system which ge nerated this result transmit elizabeth reference range : <=65. The reference range was not used to interpr et this result as lukas l/abnormal. [facility] CenterHeirsxzWECXPKHBJBVQ1973-28-92 18:46:00 Test Item Value Reference Range Interpretation Comments AST (test code = AST) 53 See_Comment [Auto mated message] The system which ge nerated this result transmit elizabeth reference range : <=37. The reference range was not used to interpr et this result as lukas l/abnormal. [facility] CenterThiwwulZETCVZFHTYNG0913-75-60 18:46:00 Test Item Value Reference Range Interpretation Comments Total Protein (test code = Total 6.9 6.4-8.4 Protein) [facility] CenterBeogachWJVGOHYEQU7101-25-81 18:46:00 Test Item Value Reference Range Interpretation Comments Eosinophils (test code = 4.2 See_Comment [A utomated message] The Eosinophils) system which ge nerated this result tra nsmitted reference range : <=4.0. The reference r mitra was not used to int erpret this result as normal/abnormal . [facility] CenterSrhsgdyOEKPEOTYTR6318-31-75 18:46:00 Test Item Value Reference Range Interpretation Comments Segs (test code = Segs) 56.4 45.0-75.0 [facility] CenterBoltdvbVKLJFZKOZQ2566-63-73 18:46:00 Test Item Value Reference Range Interpretation Comments Monocytes (test code = Monocytes) 10.3 2.0-12.0 [facility] CenterFeynobzBHKBORKEOV0676-38-77 18:46:00 Test Item Value Reference Range Interpretation Comments Lymphocytes (test code = Lymphocytes) 28.0 20.0-40.0 [facility] CenterXbhpjueVYITFHDNLF5340-13-97 18:46:00 Test Item Value Reference Range Interpretation Comments Monocytes # (test code 0.5 See_Comment [Aut omated message] The = Monocytes #) system which generated this result tra nsmitted reference range : <=0.8. The reference r mitra was not used to int erpret this result as normal/abnormal . [facility] CenterOjrctjpAGHWNTWIKI5611-52-06 18:46:00 Test Item Value Reference Range Interpretation Comments Basophils (test code = 1.1 See_Comment [Aut omated message] The Basophils) system which ge nerated this result tra nsmitted reference range : <=1.0. The reference r mitra was not used to int erpret this result as normal/abnormal . [facility] CenterKqgxmckMWZMOZEWNQ7648-60-90 18:46:00 Test Item Value Reference Range Interpretation Comments Lymphocytes # (test code = Lymphocytes 1.5 1.0-5.5 #) [facility] CenterMvghgxyTJJXKGRSET9587-22-86 18:46:00 Test Item Value Reference Range Interpretation Comments Segs-Bands # (test code = Segs-Bands #) 2.9 1.5-8.1 [facility] CenterTofuljyNRHCRNYQKW2199-15-04 18:46:00 Test Item Value Reference Range Interpretation Comments Eosinophils # (test code 0.2 See_Comment [A utomated message] The = Eosinophils #) system whic h generated this result tra nsmitted reference range : <=0.5. The reference r mitra was not used to int erpret this result as normal/abnormal . [facility] CenterIkgowoqIPXGZIRHMC5652-53-27 18:46:00 Test Item Value Reference Range Interpretation Comments Basophils # (test code 0.1 See_Comment [Aut omated message] The = Basophils #) system which generated this result tra nsmitted reference range : <=0.2. The reference r mitra was not used to int erpret this result as normal/abnormal . [facility] CenterGcrhovzKTINBHMUQL0277-11-22 18:46:00 Test Item Value Reference Range Interpretation Comments PT (test code = PT) 11.2 s 12.0-14.7 [facility] CenterInadozmDBAOVBIGHX5103-64-38 18:46:00 Test Item Value Reference Range Interpretation Comments INR (test code = INR) 0.82 0.85-1.17 [facility] CenterAxngtosBDOIHJOHNX2562-19-87 18:46:00 Test Item Value Reference Range Interpretation Comments PTT (test code = PTT) 28.6 s 22.9-35.8 [facility] CenterYtdcunsOIYIXZTFAV7126-90-57 18:46:00 Test Item Value Reference Range Interpretation Comments MPV (test code = MPV) 8.1 7.4-10.4 [facility] CenterKnjxrjkSTDTLMHUXA1644-58-25 18:46:00 Test Item Value Reference Range Interpretation Comments Platelet (test code = Platelet) 301 133-450 [facility] CenterHdstrohUTYUGQELDY6861-29-04 18:46:00 Test Item Value Reference Range Interpretation Comments RDW (test code = RDW) 14.5 11.5-14.5 [facility] CenterClmjjygKIAJNEHWXT6979-62-57 18:46:00 Test Item Value Reference Range Interpretation Comments RBC (test code = RBC) 4.84 4.70-6.10 [facility] CenterMjjnefbVKNHLONISS8879-12-41 18:46:00 Test Item Value Reference Range Interpretation Comments Hgb (test code = Hgb) 14.4 14.0-18.0 [facility] CenterXlfbwdsCRPKUVQRNY4347-08-89 18:46:00 Test Item Value Reference Range Interpretation Comments WBC (test code = WBC) 5.2 3.7-10.4 [facility] CenterZdnkhyiMWLXXXZQTA6792-07-40 18:46:00 Test Item Value Reference Range Interpretation Comments MCH (test code = MCH) 29.8 pg 27.0-31.0 [facility] CenterOurohnoCKNHXSAHTS3151-32-77 18:46:00 Test Item Value Reference Range Interpretation Comments MCV (test code = MCV) 92.0 80.0-94.0 [facility] CenterPkskdcfCIAHCYLYBE7089-36-77 18:46:00 Test Item Value Reference Range Interpretation Comments Hct (test code = Hct) 44.5 42.0-54.0 [facility] CenterXtwklxjUYQRBPHVOL7885-11-71 18:46:00 Test Item Value Reference Range Interpretation Comments MCHC (test code = MCHC) 32.4 32.0-36.0 [facility]WtrjkubKXPZRHSOJL5791-71-51 18:46:00 Test Item Value Reference Range Interpretation Comments [place]-Hep C Ab (test Negative *NA*(07/22/14 code = [place]-Hep C 1:46 PM) Ab) [facility] AND [id number] 18:46:00 Test Item Value Reference Range Interpretation Comments UA Urobilinogen (test code = UA <=1.0 mg/dL 0.1-1.0 Urobilinogen) [facility] AND [id number] 18:46:00 Test Item Value Reference Range Interpretation Comments UA Sq Epi (test code = UA Sq Epi) None Seen [facility] AND [id number] 18:46:00 Test Item Value Reference Range Interpretation Comments UA Leuk Est (test Negative (07/22/14 1:46 code = UA Leuk Est) PM) [facility] AND [id number] 18:46:00 Test Item Value Reference Range Interpretation Comments UA Nitrite (test code Negative (07/22/14 1:46 = UA Nitrite) PM) [facility] AND [id number] 18:46:00 Test Item Value Reference Range Interpretation Comments UA Blood (test code = Negative (07/22/14 1:46 UA Blood) PM) [facility] AND [id number] 18:46:00 Test Item Value Reference Range Interpretation Comments UA Ketones (test code = UA Negative mg/dL Ketones) [facility] AND [id number] 18:46:00 Test Item Value Reference Range Interpretation Comments UA Bili (test code = Negative *NA*(07/22/14 UA Bili) 1:46 PM) [facility] AND [id number] 18:46:00 Test Item Value Reference Range Interpretation Comments UA Bacteria (test code = UA Occasional /HPF Bacteria) [facility] AND [id number] 18:46:00 Test Item Value Reference Range Interpretation Comments UA RBC (test code = no gt See_Comment [Automa elizabeth message] The UA RBC) system which ge nerated this result transmit elizabeth reference range : <=2. The reference range was not used to interpr et this result as lukas l/abnormal. [facility] AND [id number] 18:46:00 Test Item Value Reference Range Interpretation Comments UA WBC (test code = 1 See_Comment [Automa elizabeth message] The UA WBC) system which ge nerated this result transmit elizabeth reference range : <=5. The reference range was not used to interpr et this result as lukas l/abnormal. [facility] AND [id number] 18:46:00 Test Item Value Reference Range Interpretation Comments UA Glucose (test code = UA Glucose) 30 mg/dL [facility] AND [id number] 18:46:00 Test Item Value Reference Range Interpretation Comments UA Protein (test code = UA Negative mg/dL Protein) [facility] AND [id number] 18:46:00 Test Item Value Reference Range Interpretation Comments UA pH (test code = UA pH) 6.5 5.0-8.0 [facility] AND [id number] 18:46:00 Test Item Value Reference Range Interpretation Comments UA Turbidity (test code = Clear (07/22/14 1:46 UA Turbidity) PM) [facility] AND [id number] 18:46:00 Test Item Value Reference Range Interpretation Comments UA Spec Grav (test code = UA Spec Grav) 1.[address] [facility] AND [id number] 18:46:00 Test Item Value Reference Range Interpretation Comments UA Color (test code = Light Yellow UA Color) *NA*(07/22/14 1:46 PM) [facility] [id number] 18:46:00 Test Item Value Reference Range Interpretation Comments Magnesium Lvl (test code = Magnesium 1.8 1.8-2.4 Lvl) [facility] HospitalExhjhncJHUBLENHZBBV8946-84-00 18:46:00 Test Item Value Reference Range Interpretation Comments AGAP (test code = AGAP) 13.2 10.0-20.0 [facility]ZapnujgXBPBBGGHRRRJ4559-51-65 18:46:00 Test Item Value Reference Range Interpretation Comments B/C Ratio (test code = B/C Ratio) 18 6-25 [facility] CenterDxruoqeEDUJUSVWFFGF5943-35-20 18:46:00 Test Item Value Reference Range Interpretation Comments A/G Ratio (test code = A/G Ratio) 1.1 0.7-1.6 [facility] CenterIzngnycPWXTLRKZZGYG0569-34-53 18:46:00 Test Item Value Reference Range Interpretation Comments Globulin (test code = Globulin) 3.3 2.0-4.0 [facility] CenterUwlgpbjMKJSUWWCWOHC2114-07-71 18:46:00 Test Item Value Reference Range Interpretation Comments eGFR (test code = eGFR) 99 [facility] CenterMkukbmsZPDCGUOUFOSR0395-07-34 18:46:00 Test Item Value Reference Range Interpretation Comments Calcium Lvl (test code = Calcium Lvl) 9.0 8.5-10.5 [facility] CenterEtkiureTPSLVDAMXQNQ4038-16-76 18:46:00 Test Item Value Reference Range Interpretation Comments Chloride Lvl (test code = Chloride Lvl) 106 95-109 [facility] CenterAjkfhtxLDENQGVHLOPK7501-47-44 18:46:00 Test Item Value Reference Range Interpretation Comments Creatinine Lvl (test code = Creatinine 0.9 0.5-1.4 Lvl) [facility] CenterSrgjynlOSXHEKUXBDIJ5945-59-51 18:46:00 Test Item Value Reference Range Interpretation Comments Potassium Lvl (test code = Potassium 4.2 3.5-5.1 Lvl) [facility] CenterEmsietjZZTPPHGVDAIX3459-96-65 18:46:00 Test Item Value Reference Range Interpretation Comments Sodium Lvl (test code = Sodium Lvl) 139 135-145 [facility] CenterQcyhdgbWPVFKLWLTOVM3138-03-71 18:46:00 Test Item Value Reference Range Interpretation Comments CO2 (test code = CO2) 24 24-32 [facility] CenterAaatnjeINOQXLIDYKKS3721-25-47 18:46:00 Test Item Value Reference Range Interpretation Comments BUN (test code = BUN) 16 7-22 [facility] CenterQsytygdAFMTILNEKFMA6836-02-59 18:46:00 Test Item Value Reference Range Interpretation Comments Glucose Lvl (test code = Glucose Lvl) 141 70-99 [facility] CenterKddkcwkODNSTVPJBMWL2481-10-70 18:46:00 Test Item Value Reference Range Interpretation Comments Albumin Lvl (test code = Albumin Lvl) 3.6 3.5-5.0 [facility] CenterOvjqvugYFMDWMZIRWHX7329-82-06 18:46:00 Test Item Value Reference Range Interpretation Comments Alk Phos (test code = Alk Phos) 65 39-136 [facility] CenterLqbcmyoJORVMAJETBDK8763-82-19 18:46:00 Test Item Value Reference Range Interpretation Comments Bili Total (test code = Bili Total) 0.3 0.2-1.3 [facility] CenterWmjdgawMAHSIDMZADLD6314-68-65 18:46:00 Test Item Value Reference Range Interpretation Comments ALT (test code = ALT) 100 See_Comment [Auto mated message] The system which ge nerated this result transmit elizabeth reference range : <=65. The reference range was not used to interpr et this result as lukas l/abnormal. [facility] CenterBvhrndtKNEUSTCFDJXG3038-83-22 18:46:00 Test Item Value Reference Range Interpretation Comments AST (test code = AST) 53 See_Comment [Auto mated message] The system which ge nerated this result transmit elizabeth reference range : <=37. The reference range was not used to interpr et this result as lukas l/abnormal. [facility] CenterWsujihiPNGQATHTPNMS7807-37-71 18:46:00 Test Item Value Reference Range Interpretation Comments Total Protein (test code = Total 6.9 6.4-8.4 Protein) [facility] CenterFbehjrcGBUJUERWBA7437-32-02 18:46:00 Test Item Value Reference Range Interpretation Comments Eosinophils (test code = 4.2 See_Comment [A utomated message] The Eosinophils) system which ge nerated this result tra nsmitted reference range : <=4.0. The reference r mitra was not used to int erpret this result as normal/abnormal . [facility] CenterMteielqLXUMDYZVZO1352-99-20 18:46:00 Test Item Value Reference Range Interpretation Comments Segs (test code = Segs) 56.4 45.0-75.0 [facility] CenterTcqdrccXGKMICZTTH5288-09-64 18:46:00 Test Item Value Reference Range Interpretation Comments Monocytes (test code = Monocytes) 10.3 2.0-12.0 [facility] CenterNjifglbHQUHCHLYMA9064-66-22 18:46:00 Test Item Value Reference Range Interpretation Comments Lymphocytes (test code = Lymphocytes) 28.0 20.0-40.0 [facility] CenterHedgwtqGNZITJZTHJ4408-71-25 18:46:00 Test Item Value Reference Range Interpretation Comments Monocytes # (test code 0.5 See_Comment [Aut omated message] The = Monocytes #) system which generated this result tra nsmitted reference range : <=0.8. The reference r mitra was not used to int erpret this result as normal/abnormal . [place] [id number] 18:46:00 Test Item Value Reference Range Interpretation Comments Basophils (test code = 1.1 See_Comment [Aut omated message] The Basophils) system which ge nerated this result tra nsmitted reference range : <=1.0. The reference r mitra was not used to int erpret this result as normal/abnormal . [facility] CenterLypjohvMPPZAZZCAW4698-38-20 18:46:00 Test Item Value Reference Range Interpretation Comments Lymphocytes # (test code = Lymphocytes 1.5 1.0-5.5 #) [facility] CenterPaztocxMWCWNFSGEX8969-75-73 18:46:00 Test Item Value Reference Range Interpretation Comments Segs-Bands # (test code = Segs-Bands #) 2.9 1.5-8.1 [facility] CenterTigkqcjGXNDGZPLWO0172-70-90 18:46:00 Test Item Value Reference Range Interpretation Comments Eosinophils # (test code 0.2 See_Comment [A utomated message] The = Eosinophils #) system whic h generated this result tra nsmitted reference range : <=0.5. The reference r mitra was not used to int erpret this result as normal/abnormal . [facility] CenterRbhtnalDXEKGJEHCZ1484-33-43 18:46:00 Test Item Value Reference Range Interpretation Comments Basophils # (test code 0.1 See_Comment [Aut omated message] The = Basophils #) system which generated this result tra nsmitted reference range : <=0.2. The reference r mitra was not used to int erpret this result as normal/abnormal . [facility] CenterUorpuwaHALWVPUURH0644-44-38 18:46:00 Test Item Value Reference Range Interpretation Comments PT (test code = PT) 11.2 s 12.0-14.7 [facility] CenterCfkzxwkUIIWSCKCAQ6602-61-54 18:46:00 Test Item Value Reference Range Interpretation Comments INR (test code = INR) 0.82 0.85-1.17 [facility] CenterAvmjzshGKQFHSZEVT1025-51-87 18:46:00 Test Item Value Reference Range Interpretation Comments PTT (test code = PTT) 28.6 s 22.9-35.8 [facility] CenterVechqraZDUMAOYGUE0425-79-76 18:46:00 Test Item Value Reference Range Interpretation Comments MPV (test code = MPV) 8.1 7.4-10.4 [facility] CenterAeshxusPWMFTLEGIC0413-28-18 18:46:00 Test Item Value Reference Range Interpretation Comments Platelet (test code = Platelet) 301 133-450 [facility] CenterIhtxmrzUBYGICWNPC2812-68-28 18:46:00 Test Item Value Reference Range Interpretation Comments RDW (test code = RDW) 14.5 11.5-14.5 [facility] CenterRtagbfzAJVYUHBNHS1332-45-86 18:46:00 Test Item Value Reference Range Interpretation Comments RBC (test code = RBC) 4.84 4.70-6.10 [facility] CenterUfxrwcuUEYEYDLKUW1815-48-49 18:46:00 Test Item Value Reference Range Interpretation Comments Hgb (test code = Hgb) 14.4 14.0-18.0 [facility] CenterZhgikoyEBPWTFQMPK0732-23-91 18:46:00 Test Item Value Reference Range Interpretation Comments WBC (test code = WBC) 5.2 3.7-10.4 [facility] CenterQttymojVFIIURLQBY3402-77-80 18:46:00 Test Item Value Reference Range Interpretation Comments MCH (test code = MCH) 29.8 pg 27.0-31.0 [facility] CenterNgbdbtySSPUSUMWQB3672-60-59 18:46:00 Test Item Value Reference Range Interpretation Comments MCV (test code = MCV) 92.0 80.0-94.0 [facility] CenterXjevhoqKXLOUOANOY8076-49-58 18:46:00 Test Item Value Reference Range Interpretation Comments Hct (test code = Hct) 44.5 42.0-54.0 [facility] CenterDwvbjomXVSOQYPTWJ1594-63-84 18:46:00 Test Item Value Reference Range Interpretation Comments MCHC (test code = MCHC) 32.4 32.0-36.0 [facility]ohoaufZMTLANWYDD6504-63-95 18:46:00 Test Item Value Reference Range Interpretation Comments [place]Hep C Ab (test Negative *NA*(07/22/14 code = [place]-Hep C 1:46 PM) Ab) [facility] AND [id number] 18:46:00 Test Item Value Reference Range Interpretation Comments UA Urobilinogen (test code = UA <=1.0 mg/dL 0.1-1.0 Urobilinogen) [facility] AND [id number] 18:46:00 Test Item Value Reference Range Interpretation Comments UA Sq Epi (test code = UA Sq Epi) None Seen [facility] AND [id number] 18:46:00 Test Item Value Reference Range Interpretation Comments UA Leuk Est (test Negative (07/22/14 1:46 code = UA Leuk Est) PM) [facility] AND [id number] 18:46:00 Test Item Value Reference Range Interpretation Comments UA Nitrite (test code Negative (07/22/14 1:46 = UA Nitrite) PM) [facility] AND [id number] 18:46:00 Test Item Value Reference Range Interpretation Comments UA Blood (test code = Negative (07/22/14 1:46 UA Blood) PM) [facility] AND [id number] 18:46:00 Test Item Value Reference Range Interpretation Comments UA Ketones (test code = UA Negative mg/dL Ketones) [facility] AND [id number] 18:46:00 Test Item Value Reference Range Interpretation Comments UA Bili (test code = Negative *NA*(07/22/14 UA Bili) 1:46 PM) [facility] AND [id number] 18:46:00 Test Item Value Reference Range Interpretation Comments UA Bacteria (test code = UA Occasional /HPF Bacteria) [facility] AND [id number] 18:46:00 Test Item Value Reference Range Interpretation Comments UA RBC (test code = no gt See_Comment [Automa elizabeth message] The UA RBC) system which ge nerated this result transmit elizabeth reference range : <=2. The reference range was not used to interpr et this result as lukas l/abnormal. [facility] AND [id number] 18:46:00 Test Item Value Reference Range Interpretation Comments UA WBC (test code = 1 See_Comment [Automa elizabeth message] The UA WBC) system which ge nerated this result transmit elizabeth reference range : <=5. The reference range was not used to interpr et this result as lukas l/abnormal. [facility] AND [id number] 18:46:00 Test Item Value Reference Range Interpretation Comments UA Glucose (test code = UA Glucose) 30 mg/dL [facility] AND [id number] 18:46:00 Test Item Value Reference Range Interpretation Comments UA Protein (test code = UA Negative mg/dL Protein) [facility] AND [id number] 18:46:00 Test Item Value Reference Range Interpretation Comments UA pH (test code = UA pH) 6.5 5.0-8.0 [facility] AND [id number] 18:46:00 Test Item Value Reference Range Interpretation Comments UA Turbidity (test code = Clear (07/22/14 1:46 UA Turbidity) PM) [facility] AND [id number] 18:46:00 Test Item Value Reference Range Interpretation Comments UA Spec Grav (test code = UA Spec Grav) 1.[address] [facility] AND [id number] 18:46:00 Test Item Value Reference Range Interpretation Comments UA Color (test code = Light Yellow UA Color) *NA*(07/22/14 1:46 PM) [facility] [id number] 18:46:00 Test Item Value Reference Range Interpretation Comments Magnesium Lvl (test code = Magnesium 1.8 1.8-2.4 Lvl) [facility] CenterLhvaqsjXEUKKAZWKLUJ4294-54-94 18:46:00 Test Item Value Reference Range Interpretation Comments AGAP (test code = AGAP) 13.2 10.0-20.0 [facility] CenterHvholygAVMZNJUTKQOX4031-86-09 18:46:00 Test Item Value Reference Range Interpretation Comments B/C Ratio (test code = B/C Ratio) 18 6-25 [facility] CenterCjlqnnzCMVETNKFZCDR2430-81-17 18:46:00 Test Item Value Reference Range Interpretation Comments A/G Ratio (test code = A/G Ratio) 1.1 0.7-1.6 [facility] CenterMlhxgkxLITWNJQASKTV0501-35-49 18:46:00 Test Item Value Reference Range Interpretation Comments Globulin (test code = Globulin) 3.3 2.0-4.0 [facility] CenterHsolzsdRTGUDLIUWLFH7316-38-18 18:46:00 Test Item Value Reference Range Interpretation Comments eGFR (test code = eGFR) 99 [facility] CenterVfkmhpaUAWTLSLSNZGD6136-36-83 18:46:00 Test Item Value Reference Range Interpretation Comments Calcium Lvl (test code = Calcium Lvl) 9.0 8.5-10.5 [facility] CenterEcpmpcrTXDCNDGPGLWK5373-25-08 18:46:00 Test Item Value Reference Range Interpretation Comments Chloride Lvl (test code = Chloride Lvl) 106 95-109 [facility] CenterMrlpwbiOXQDYDLLAMDP6198-87-00 18:46:00 Test Item Value Reference Range Interpretation Comments Creatinine Lvl (test code = Creatinine 0.9 0.5-1.4 Lvl) [facility] CenterDpzfscoHKMCQCTBIPSK5449-12-88 18:46:00 Test Item Value Reference Range Interpretation Comments Potassium Lvl (test code = Potassium 4.2 3.5-5.1 Lvl) [facility] CenterSutybquITLGHVDGNZRF3998-04-67 18:46:00 Test Item Value Reference Range Interpretation Comments Sodium Lvl (test code = Sodium Lvl) 139 135-145 [facility] CenterIwndgvoESZAYLIXAHZF4020-67-24 18:46:00 Test Item Value Reference Range Interpretation Comments CO2 (test code = CO2) 24 24-32 [facility] CenterBpxgtxvIXEBNHXJLIZN7172-31-95 18:46:00 Test Item Value Reference Range Interpretation Comments BUN (test code = BUN) 16 7-22 [facility] CenterGfhhldnICDDWEHBWVQE1455-40-09 18:46:00 Test Item Value Reference Range Interpretation Comments Glucose Lvl (test code = Glucose Lvl) 141 70-99 [facility] CenterLrgvlczXYPTEZKGVZKE1098-99-99 18:46:00 Test Item Value Reference Range Interpretation Comments Albumin Lvl (test code = Albumin Lvl) 3.6 3.5-5.0 [facility] CenterYtvrxsuFJKOXNNPNZJC8189-39-11 18:46:00 Test Item Value Reference Range Interpretation Comments Alk Phos (test code = Alk Phos) 65 39-136 [facility] CenterJorajdjCIVARSJQRMYX2813-62-49 18:46:00 Test Item Value Reference Range Interpretation Comments Bili Total (test code = Bili Total) 0.3 0.2-1.3 [facility] CenterFsjdvdnXVSWITHEHHHA5569-81-19 18:46:00 Test Item Value Reference Range Interpretation Comments ALT (test code = ALT) 100 See_Comment [Auto mated message] The system which ge nerated this result transmit elizabeth reference range : <=65. The reference range was not used to interpr et this result as lukas l/abnormal. [facility] CenterBazjzbfLCWSPQEGJTQW6577-34-14 18:46:00 Test Item Value Reference Range Interpretation Comments AST (test code = AST) 53 See_Comment [Auto mated message] The system which ge nerated this result transmit elizabeth reference range : <=37. The reference range was not used to interpr et this result as lukas l/abnormal. [facility] CenterGtejbrbJBQEIOEVPXXT6030-93-89 18:46:00 Test Item Value Reference Range Interpretation Comments Total Protein (test code = Total 6.9 6.4-8.4 Protein) [facility] CenterFtkdjvnYFOIXCTQXI2813-29-95 18:46:00 Test Item Value Reference Range Interpretation Comments Eosinophils (test code = 4.2 See_Comment [A utomated message] The Eosinophils) system which ge nerated this result tra nsmitted reference range : <=4.0. The reference r mitra was not used to int erpret this result as normal/abnormal . [facility] CenterDrqfqnpZLHSCWNJLG1006-50-56 18:46:00 Test Item Value Reference Range Interpretation Comments Segs (test code = Segs) 56.4 45.0-75.0 [facility] CenterRkvntwvORDZVCRUKG5646-05-07 18:46:00 Test Item Value Reference Range Interpretation Comments Monocytes (test code = Monocytes) 10.3 2.0-12.0 [facility] CenterEnqmnqgGUSEWRDQYP3879-71-59 18:46:00 Test Item Value Reference Range Interpretation Comments Lymphocytes (test code = Lymphocytes) 28.0 20.0-40.0 [facility] CenterHvkbnisAQBUAIUKZR0952-92-32 18:46:00 Test Item Value Reference Range Interpretation Comments Monocytes # (test code 0.5 See_Comment [Aut omated message] The = Monocytes #) system which generated this result tra nsmitted reference range : <=0.8. The reference r mitra was not used to int erpret this result as normal/abnormal . [facility] CenterRonpzioSQEJVEVCHB2910-33-80 18:46:00 Test Item Value Reference Range Interpretation Comments Basophils (test code = 1.1 See_Comment [Aut omated message] The Basophils) system which ge nerated this result tra nsmitted reference range : <=1.0. The reference r mitra was not used to int erpret this result as normal/abnormal . [facility] CenterQldqpjpWFEJDHVWSP5759-31-61 18:46:00 Test Item Value Reference Range Interpretation Comments Lymphocytes # (test code = Lymphocytes 1.5 1.0-5.5 #) [facility] CenterQndgxppPHHCZMQIJW2785-71-13 18:46:00 Test Item Value Reference Range Interpretation Comments Segs-Bands # (test code = Segs-Bands #) 2.9 1.5-8.1 [facility] CenterWoxwzfwPGXZWIEUYW2606-05-22 18:46:00 Test Item Value Reference Range Interpretation Comments Eosinophils # (test code 0.2 See_Comment [A utomated message] The = Eosinophils #) system whic h generated this result tra nsmitted reference range : <=0.5. The reference r mitra was not used to int erpret this result as normal/abnormal . [facility] CenterPrqcfwmWFHVBYPHNZ4144-65-11 18:46:00 Test Item Value Reference Range Interpretation Comments Basophils # (test code 0.1 See_Comment [Aut omated message] The = Basophils #) system which generated this result tra nsmitted reference range : <=0.2. The reference r mitra was not used to int erpret this result as normal/abnormal . [facility] CenterGviacltDLBRWZFDIM5067-01-73 18:46:00 Test Item Value Reference Range Interpretation Comments PT (test code = PT) 11.2 s 12.0-14.7 [facility] CenterPbhrfniSTFWZSSRTP8293-27-79 18:46:00 Test Item Value Reference Range Interpretation Comments INR (test code = INR) 0.82 0.85-1.17 [facility] CenterMcrckevNHBPHMHUZO1378-44-06 18:46:00 Test Item Value Reference Range Interpretation Comments PTT (test code = PTT) 28.6 s 22.9-35.8 [facility] CenterCxchabjQGIKJPYDQD5682-09-51 18:46:00 Test Item Value Reference Range Interpretation Comments MPV (test code = MPV) 8.1 7.4-10.4 [facility] CenterZudwhgfQTVSMDTYQA6376-78-71 18:46:00 Test Item Value Reference Range Interpretation Comments Platelet (test code = Platelet) 301 133-450 [facility] CenterUqbqhanNDFUYYZTSJ8307-07-22 18:46:00 Test Item Value Reference Range Interpretation Comments RDW (test code = RDW) 14.5 11.5-14.5 [facility] CenterLehgnvlEZNHKBHGJD3093-64-41 18:46:00 Test Item Value Reference Range Interpretation Comments RBC (test code = RBC) 4.84 4.70-6.10 [facility] CenterYibmufrRSUWQQMBVN3134-91-27 18:46:00 Test Item Value Reference Range Interpretation Comments Hgb (test code = Hgb) 14.4 14.0-18.0 [facility]umqkntFAEYEOKKCE0426-29-72 18:46:00 Test Item Value Reference Range Interpretation Comments WBC (test code = WBC) 5.2 3.7-10.4 [facility] HospitalJkgaztoNAGEUKQLGZ6804-03-19 18:46:00 Test Item Value Reference Range Interpretation Comments MCH (test code = MCH) 29.8 pg 27.0-31.0 [facility] CenterSkupachTPLTHMDGJU3061-68-47 18:46:00 Test Item Value Reference Range Interpretation Comments MCV (test code = MCV) 92.0 80.0-94.0 [facility] HospitalBbyvzwwHKYIKHTDJW2608-23-77 18:46:00 Test Item Value Reference Range Interpretation Comments Hct (test code = Hct) 44.5 42.0-54.0 [facility] CenterQkltqcoFHSWRYJMSP1489-56-91 18:46:00 Test Item Value Reference Range Interpretation Comments MCHC (test code = MCHC) 32.4 32.0-36.0 [facility]Ff[facility]wabWCQCGEZTHS3657-31-30 18:46:00 Test Item Value Reference Range Interpretation Comments [place]-Hep C Ab (test Negative *NA*(07/22/14 code = [place]-Hep C 1:46 PM) Ab) [facility] AND [id number] 18:46:00 Test Item Value Reference Range Interpretation Comments UA Urobilinogen (test code = UA <=1.0 mg/dL 0.1-1.0 Urobilinogen) [facility] AND [id number] 18:46:00 Test Item Value Reference Range Interpretation Comments UA Sq Epi (test code = UA Sq Epi) None Seen [facility] AND [id number] 18:46:00 Test Item Value Reference Range Interpretation Comments UA Leuk Est (test Negative (07/22/14 1:46 code = UA Leuk Est) PM) [facility] AND [id number] 18:46:00 Test Item Value Reference Range Interpretation Comments UA Nitrite (test code Negative (07/22/14 1:46 = UA Nitrite) PM) [facility] AND [id number] 18:46:00 Test Item Value Reference Range Interpretation Comments UA Blood (test code = Negative (07/22/14 1:46 UA Blood) PM) [facility] AND [id number] 18:46:00 Test Item Value Reference Range Interpretation Comments UA Ketones (test code = UA Negative mg/dL Ketones) [facility] AND [id number] 18:46:00 Test Item Value Reference Range Interpretation Comments UA Bili (test code = Negative *NA*(07/22/14 UA Bili) 1:46 PM) [facility] AND [id number] 18:46:00 Test Item Value Reference Range Interpretation Comments UA Bacteria (test code = UA Occasional /HPF Bacteria) [facility] AND [id number] 18:46:00 Test Item Value Reference Range Interpretation Comments UA RBC (test code = no gt See_Comment [Automa elizabeth message] The UA RBC) system which ge nerated this result transmit elizabeth reference range : <=2. The reference range was not used to interpr et this result as lukas l/abnormal. [facility] AND [id number] 18:46:00 Test Item Value Reference Range Interpretation Comments UA WBC (test code = 1 See_Comment [Automa elizabeth message] The UA WBC) system which ge nerated this result transmit elizabeth reference range : <=5. The reference range was not used to interpr et this result as lukas l/abnormal. [facility] AND [id number] 18:46:00 Test Item Value Reference Range Interpretation Comments UA Glucose (test code = UA Glucose) 30 mg/dL [facility] AND [id number] 18:46:00 Test Item Value Reference Range Interpretation Comments UA Protein (test code = UA Negative mg/dL Protein) [facility] AND [id number] 18:46:00 Test Item Value Reference Range Interpretation Comments UA pH (test code = UA pH) 6.5 5.0-8.0 [facility] AND [id number] 18:46:00 Test Item Value Reference Range Interpretation Comments UA Turbidity (test code = Clear (07/22/14 1:46 UA Turbidity) PM) [facility] AND [id number] 18:46:00 Test Item Value Reference Range Interpretation Comments UA Spec Grav (test code = UA Spec Grav) 1.[address] [facility] AND [id number] 18:46:00 Test Item Value Reference Range Interpretation Comments UA Color (test code = Light Yellow UA Color) *NA*(07/22/14 1:46 PM) [facility]2015-06-09 18:46:00 Test Item Value Reference Range Interpretation Comments Magnesium Lvl (test code = Magnesium 1.8 1.8-2.4 Lvl) [facility] CenterZhfoyhgLPJKOZYHJUUX9122-02-34 18:46:00 Test Item Value Reference Range Interpretation Comments AGAP (test code = AGAP) 13.2 10.0-20.0 [facility] CenterCgdcjaxYQJQOFJWBXSU7720-48-56 18:46:00 Test Item Value Reference Range Interpretation Comments B/C Ratio (test code = B/C Ratio) 18 6-25 [facility] CenterOzivntwWCGXXYJNSIAS8064-40-32 18:46:00 Test Item Value Reference Range Interpretation Comments A/G Ratio (test code = A/G Ratio) 1.1 0.7-1.6 [facility] CenterMywehbxJWURUTLHVUAD1806-15-81 18:46:00 Test Item Value Reference Range Interpretation Comments Globulin (test code = Globulin) 3.3 2.0-4.0 [facility] CenterNgpylaaHJAEBCBQLDJR5298-33-02 18:46:00 Test Item Value Reference Range Interpretation Comments eGFR (test code = eGFR) 99 [facility] CenterMfwjpfzZHAZSTXDKGFI4581-14-91 18:46:00 Test Item Value Reference Range Interpretation Comments Calcium Lvl (test code = Calcium Lvl) 9.0 8.5-10.5 [facility] CenterOvxcfhnYXCMXLEHTDYG9814-85-31 18:46:00 Test Item Value Reference Range Interpretation Comments Chloride Lvl (test code = Chloride Lvl) 106 95-109 [facility] CenterMsvyuhjUWJKMTMWVDWH3287-72-35 18:46:00 Test Item Value Reference Range Interpretation Comments Creatinine Lvl (test code = Creatinine 0.9 0.5-1.4 Lvl) [facility] CenterYbozzusOBYJLAXUIRDZ5880-97-84 18:46:00 Test Item Value Reference Range Interpretation Comments Potassium Lvl (test code = Potassium 4.2 3.5-5.1 Lvl) [facility] CenterSfubfazKMJAKJTRNJQJ7823-33-54 18:46:00 Test Item Value Reference Range Interpretation Comments Sodium Lvl (test code = Sodium Lvl) 139 135-145 [facility] CenterRetgteiNDMBTRAJVKCU1890-60-56 18:46:00 Test Item Value Reference Range Interpretation Comments CO2 (test code = CO2) 24 24-32 [facility] CenterLvnekmuBKUSFBDJJFWV0462-26-78 18:46:00 Test Item Value Reference Range Interpretation Comments BUN (test code = BUN) 16 7-22 [facility] CenterEnvtxisWUYTUGGXJGFH3832-84-02 18:46:00 Test Item Value Reference Range Interpretation Comments Glucose Lvl (test code = Glucose Lvl) 141 70-99 [facility] CenterFyxfkyqKOLHVVMAKNCI9202-52-22 18:46:00 Test Item Value Reference Range Interpretation Comments Albumin Lvl (test code = Albumin Lvl) 3.6 3.5-5.0 [facility] CenterUapvrmnVMWXWGGREXFK5046-94-67 18:46:00 Test Item Value Reference Range Interpretation Comments Alk Phos (test code = Alk Phos) 65 39-136 [facility] CenterLyxtoweEMMHFFQOBIXC1661-09-45 18:46:00 Test Item Value Reference Range Interpretation Comments Bili Total (test code = Bili Total) 0.3 0.2-1.3 [facility] CenterCnjxjpbSDPMNNIYFWSM2796-09-93 18:46:00 Test Item Value Reference Range Interpretation Comments ALT (test code = ALT) 100 See_Comment [Auto mated message] The system which ge nerated this result transmit elizabeth reference range : <=65. The reference range was not used to interpr et this result as lukas l/abnormal. [facility] CenterMujhmzpHURLWIPOCDPN7493-56-57 18:46:00 Test Item Value Reference Range Interpretation Comments AST (test code = AST) 53 See_Comment [Auto mated message] The system which ge nerated this result transmit elizabeth reference range : <=37. The reference range was not used to interpr et this result as lukas l/abnormal. [facility] CenterVzmyzkxGDMRADRVPIOZ8581-81-93 18:46:00 Test Item Value Reference Range Interpretation Comments Total Protein (test code = Total 6.9 6.4-8.4 Protein) [facility]YvcbmrlDUTPKYWGKC4565-41-59 18:46:00 Test Item Value Reference Range Interpretation Comments Eosinophils (test code = 4.2 See_Comment [A utomated message] The Eosinophils) system which ge nerated this result tra nsmitted reference range : <=4.0. The reference r mitra was not used to int erpret this result as normal/abnormal . [facility] CenterGexxxwzBUGSDBEURL6231-79-12 18:46:00 Test Item Value Reference Range Interpretation Comments Segs (test code = Segs) 56.4 45.0-75.0 [facility] CenterUkgocpkGSKJZMIVFL1039-49-08 18:46:00 Test Item Value Reference Range Interpretation Comments Monocytes (test code = Monocytes) 10.3 2.0-12.0 [facility] CenterDuyxwiyIWAJVENHNN2798-11-41 18:46:00 Test Item Value Reference Range Interpretation Comments Lymphocytes (test code = Lymphocytes) 28.0 20.0-40.0 [facility] CenterStseoocQJCBDPUTOB2467-02-01 18:46:00 Test Item Value Reference Range Interpretation Comments Monocytes # (test code 0.5 See_Comment [Aut omated message] The = Monocytes #) system which generated this result tra nsmitted reference range : <=0.8. The reference r mitra was not used to int erpret this result as normal/abnormal . [facility] CenterHrshbuoIHCMMSEKEU6383-17-79 18:46:00 Test Item Value Reference Range Interpretation Comments Basophils (test code = 1.1 See_Comment [Aut omated message] The Basophils) system which ge nerated this result tra nsmitted reference range : <=1.0. The reference r mitra was not used to int erpret this result as normal/abnormal . [facility] CenterTzynkgsKXJZUYPIDS5383-29-06 18:46:00 Test Item Value Reference Range Interpretation Comments Lymphocytes # (test code = Lymphocytes 1.5 1.0-5.5 #) [facility] CenterDgonwaqPUYDDTLTHU4648-74-73 18:46:00 Test Item Value Reference Range Interpretation Comments Segs-Bands # (test code = Segs-Bands #) 2.9 1.5-8.1 [facility] CenterHbzaoyeMOUORHVBJE5202-77-37 18:46:00 Test Item Value Reference Range Interpretation Comments Eosinophils # (test code 0.2 See_Comment [A utomated message] The = Eosinophils #) system whic h generated this result tra nsmitted reference range : <=0.5. The reference r mitra was not used to int erpret this result as normal/abnormal . [facility] CenterHbqcxmxMDDFMDTLHV7836-35-73 18:46:00 Test Item Value Reference Range Interpretation Comments Basophils # (test code 0.1 See_Comment [Aut omated message] The = Basophils #) system which generated this result tra nsmitted reference range : <=0.2. The reference r mitra was not used to int erpret this result as normal/abnormal . [facility] CenterWqxlixgIYCDPMQSQP7352-36-32 18:46:00 Test Item Value Reference Range Interpretation Comments PT (test code = PT) 11.2 s 12.0-14.7 [facility] CenterOljkethJFQGJMXTZK6551-72-18 18:46:00 Test Item Value Reference Range Interpretation Comments INR (test code = INR) 0.82 0.85-1.17 [facility] CenterSvuzwmuRLOUWVUMQU0869-86-14 18:46:00 Test Item Value Reference Range Interpretation Comments PTT (test code = PTT) 28.6 s 22.9-35.8 [facility] CenterOtiqpaeBZADFMUFXA2462-91-68 18:46:00 Test Item Value Reference Range Interpretation Comments MPV (test code = MPV) 8.1 7.4-10.4 [facility] CenterSbygbetDSAHXYZJEP0472-59-79 18:46:00 Test Item Value Reference Range Interpretation Comments Platelet (test code = Platelet) 301 133-450 [facility] CenterBhqyhkfTGJPLHYEDK3833-80-99 18:46:00 Test Item Value Reference Range Interpretation Comments RDW (test code = RDW) 14.5 11.5-14.5 [facility] CenterZnatzsfLYEZWAQGQK0778-30-83 18:46:00 Test Item Value Reference Range Interpretation Comments RBC (test code = RBC) 4.84 4.70-6.10 [facility] CenterBxecpizKFVDXRUTYY8411-14-37 18:46:00 Test Item Value Reference Range Interpretation Comments Hgb (test code = Hgb) 14.4 14.0-18.0 [facility] CenterYirkqouJMWNFORMDG8582-40-92 18:46:00 Test Item Value Reference Range Interpretation Comments WBC (test code = WBC) 5.2 3.7-10.4 [facility] CenterKglgmsdTEXLPBQXEL9549-04-66 18:46:00 Test Item Value Reference Range Interpretation Comments MCH (test code = MCH) 29.8 pg 27.0-31.0 [facility] CenterItkpbduIUDQMEXPUV1511-61-33 18:46:00 Test Item Value Reference Range Interpretation Comments MCV (test code = MCV) 92.0 80.0-94.0 [facility] CenterSoycntkXFRTATSRCX2921-87-47 18:46:00 Test Item Value Reference Range Interpretation Comments Hct (test code = Hct) 44.5 42.0-54.0 [facility]ehipqwHSNOFVIGZW3496-51-66 18:46:00 Test Item Value Reference Range Interpretation Comments MCHC (test code = MCHC) 32.4 32.0-36.0 [facility] HgutukzACWQQVEYIK5887-08-47 18:46:00 Test Item Value Reference Range Interpretation Comments [place]Hep C Ab (test Negative *NA*(07/22/14 code = [place]-Hep C 1:46 PM) Ab) [facility] [id number] 18:46:00 Test Item Value Reference Range Interpretation Comments UA Urobilinogen (test code = UA <=1.0 mg/dL 0.1-1.0 Urobilinogen) [facility] AND [id number] 18:46:00 Test Item Value Reference Range Interpretation Comments UA Sq Epi (test code = UA Sq Epi) None Seen [facility] AND [id number] 18:46:00 Test Item Value Reference Range Interpretation Comments UA Leuk Est (test Negative (07/22/14 1:46 code = UA Leuk Est) PM) [facility] [id number] 18:46:00 Test Item Value Reference Range Interpretation Comments UA Nitrite (test code Negative (07/22/14 1:46 = UA Nitrite) PM) [facility] [id number] 18:46:00 Test Item Value Reference Range Interpretation Comments UA Blood (test code = Negative (07/22/14 1:46 UA Blood) PM) [facility] [id number] 18:46:00 Test Item Value Reference Range Interpretation Comments UA Ketones (test code = UA Negative mg/dL Ketones) [facility] [id number] 18:46:00 Test Item Value Reference Range Interpretation Comments UA Bili (test code = Negative *NA*(07/22/14 UA Bili) 1:46 PM) [facility] [id number] 18:46:00 Test Item Value Reference Range Interpretation Comments UA Bacteria (test code = UA Occasional /HPF Bacteria) [facility] [id number] 18:46:00 Test Item Value Reference Range Interpretation Comments UA RBC (test code = no gt See_Comment [Automa elizabeth message] The UA RBC) system which ge nerated this result transmit elizabeth reference range : <=2. The reference range was not used to interpr et this result as lukas l/abnormal. [facility] AND [id number] 18:46:00 Test Item Value Reference Range Interpretation Comments UA WBC (test code = 1 See_Comment [Automa elizabeth message] The UA WBC) system which ge nerated this result transmit elizabeth reference range : <=5. The reference range was not used to interpr et this result as lukas l/abnormal. [facility] AND [id number] 18:46:00 Test Item Value Reference Range Interpretation Comments UA Glucose (test code = UA Glucose) 30 mg/dL [facility] AND [id number] 18:46:00 Test Item Value Reference Range Interpretation Comments UA Protein (test code = UA Negative mg/dL Protein) [facility] AND [id number] 18:46:00 Test Item Value Reference Range Interpretation Comments UA pH (test code = UA pH) 6.5 5.0-8.0 [facility] AND [id number] 18:46:00 Test Item Value Reference Range Interpretation Comments UA Turbidity (test code = Clear (07/22/14 1:46 UA Turbidity) PM) [facility] AND [id number] 18:46:00 Test Item Value Reference Range Interpretation Comments UA Spec Grav (test code = UA Spec Grav) 1.[address] [facility] AND [id number] 18:46:00 Test Item Value Reference Range Interpretation Comments UA Color (test code = Light Yellow UA Color) *NA*(07/22/14 1:46 PM) [facility] [id number] 18:46:00 Test Item Value Reference Range Interpretation Comments Magnesium Lvl (test code = Magnesium 1.8 1.8-2.4 Lvl) [facility] HospitalLghirbaZFTXGSTVSBAM9814-73-80 18:46:00 Test Item Value Reference Range Interpretation Comments AGAP (test code = AGAP) 13.2 10.0-20.0 [facility] CenterKafbpowAFYIGTCIIAKR4425-89-08 18:46:00 Test Item Value Reference Range Interpretation Comments B/C Ratio (test code = B/C Ratio) 18 6-25 [facility] CenterUeybdvtQLRKBUBKTTAG1182-12-57 18:46:00 Test Item Value Reference Range Interpretation Comments A/G Ratio (test code = A/G Ratio) 1.1 0.7-1.6 [facility] CenterMphehltJFTWEJHTDQFQ0535-18-86 18:46:00 Test Item Value Reference Range Interpretation Comments Globulin (test code = Globulin) 3.3 2.0-4.0 [facility] CenterPxhebsaPVQFAYAXBHJU8509-41-97 18:46:00 Test Item Value Reference Range Interpretation Comments eGFR (test code = eGFR) 99 [facility] CenterWdbdgizNZROWTFZTFKV8410-71-25 18:46:00 Test Item Value Reference Range Interpretation Comments Calcium Lvl (test code = Calcium Lvl) 9.0 8.5-10.5 [facility] CenterMsxatjnNRBNUWZMPEGU3465-66-44 18:46:00 Test Item Value Reference Range Interpretation Comments Chloride Lvl (test code = Chloride Lvl) 106 95-109 [facility] CenterMaaxkqiMWANIAXGTUEQ2388-38-81 18:46:00 Test Item Value Reference Range Interpretation Comments Creatinine Lvl (test code = Creatinine 0.9 0.5-1.4 Lvl) [facility] CenterLzwmayhKKIERGAQJFHG0837-29-00 18:46:00 Test Item Value Reference Range Interpretation Comments Potassium Lvl (test code = Potassium 4.2 3.5-5.1 Lvl) [facility] CenterEslarvhFJKBOTLBWTIS6746-30-70 18:46:00 Test Item Value Reference Range Interpretation Comments Sodium Lvl (test code = Sodium Lvl) 139 135-145 [facility] CenterVyppnkcBWKMJGNAJHXB7994-62-49 18:46:00 Test Item Value Reference Range Interpretation Comments CO2 (test code = CO2) 24 24-32 [facility] CenterTocryntBAMKLLDASTDV3795-02-47 18:46:00 Test Item Value Reference Range Interpretation Comments BUN (test code = BUN) 16 7-22 [facility] CenterRuhfpjpOPZXWBUWQKCC4585-67-81 18:46:00 Test Item Value Reference Range Interpretation Comments Glucose Lvl (test code = Glucose Lvl) 141 70-99 [facility] CenterBfuizgcWDVJXUFMGQEE8153-49-30 18:46:00 Test Item Value Reference Range Interpretation Comments Albumin Lvl (test code = Albumin Lvl) 3.6 3.5-5.0 [facility] CenterNopzqkyUPRMVEBSIXDZ3394-33-88 18:46:00 Test Item Value Reference Range Interpretation Comments Alk Phos (test code = Alk Phos) 65 39-136 [facility] CenterNmypvwfREGARPVHOIMF8101-90-48 18:46:00 Test Item Value Reference Range Interpretation Comments Bili Total (test code = Bili Total) 0.3 0.2-1.3 [facility] CenterTwznmmaVXVABZEIRTTI5780-12-68 18:46:00 Test Item Value Reference Range Interpretation Comments ALT (test code = ALT) 100 See_Comment [Auto mated message] The system which ge nerated this result transmit elizabeth reference range : <=65. The reference range was not used to interpr et this result as lukas l/abnormal. [facility] CenterXgzqyjiSQOZKAVPBKDP3827-96-09 18:46:00 Test Item Value Reference Range Interpretation Comments AST (test code = AST) 53 See_Comment [Auto mated message] The system which ge nerated this result transmit elizabeth reference range : <=37. The reference range was not used to interpr et this result as lukas l/abnormal. [facility][id number] 18:46:00 Test Item Value Reference Range Interpretation Comments Total Protein (test code = Total 6.9 6.4-8.4 Protein) [facility] CenterTkzrztbSVERTZOSCA3647-43-82 18:46:00 Test Item Value Reference Range Interpretation Comments Eosinophils (test code = 4.2 See_Comment [A utomated message] The Eosinophils) system which ge nerated this result tra nsmitted reference range : <=4.0. The reference r mitra was not used to int erpret this result as normal/abnormal . [facility] CenterPpyreclSCEBTGKJFL1857-15-97 18:46:00 Test Item Value Reference Range Interpretation Comments Segs (test code = Segs) 56.4 45.0-75.0 [facility] CenterSsmhoceOXQQMXFKPR6987-51-42 18:46:00 Test Item Value Reference Range Interpretation Comments Monocytes (test code = Monocytes) 10.3 2.0-12.0 [facility] CenterTidefgmGXGNYWCVRZ5575-12-47 18:46:00 Test Item Value Reference Range Interpretation Comments Lymphocytes (test code = Lymphocytes) 28.0 20.0-40.0 [facility] CenterVxjsmwnHMZTAAFTWN9068-24-52 18:46:00 Test Item Value Reference Range Interpretation Comments Monocytes # (test code 0.5 See_Comment [Aut omated message] The = Monocytes #) system which generated this result tra nsmitted reference range : <=0.8. The reference r mitra was not used to int erpret this result as normal/abnormal . [facility] CenterDvpkzfmAMOZDQJKPL6599-79-88 18:46:00 Test Item Value Reference Range Interpretation Comments Basophils (test code = 1.1 See_Comment [Aut omated message] The Basophils) system which ge nerated this result tra nsmitted reference range : <=1.0. The reference r mitra was not used to int erpret this result as normal/abnormal . [facility] CenterPcglhnkBRVQNGJCHX2848-77-06 18:46:00 Test Item Value Reference Range Interpretation Comments Lymphocytes # (test code = Lymphocytes 1.5 1.0-5.5 #) [facility] CenterUrdxaowGAQKFYWISI5451-18-06 18:46:00 Test Item Value Reference Range Interpretation Comments Segs-Bands # (test code = Segs-Bands #) 2.9 1.5-8.1 [facility] CenterUysghngSBRPHHOLAP7488-28-41 18:46:00 Test Item Value Reference Range Interpretation Comments Eosinophils # (test code 0.2 See_Comment [A utomated message] The = Eosinophils #) system whic h generated this result tra nsmitted reference range : <=0.5. The reference r mitra was not used to int erpret this result as normal/abnormal . [facility] CenterTktcofwTMOOMZGMPQ0127-61-55 18:46:00 Test Item Value Reference Range Interpretation Comments Basophils # (test code 0.1 See_Comment [Aut omated message] The = Basophils #) system which generated this result tra nsmitted reference range : <=0.2. The reference r mitra was not used to int erpret this result as normal/abnormal . [facility] CenterUrlyhbmOOKVKDDIHQ3123-60-57 18:46:00 Test Item Value Reference Range Interpretation Comments PT (test code = PT) 11.2 s 12.0-14.7 [facility] CenterLpctmwlVQINCHLTSO9774-67-41 18:46:00 Test Item Value Reference Range Interpretation Comments INR (test code = INR) 0.82 0.85-1.17 [facility] CenterFnmzcpiCJCRQPKXEC2645-77-36 18:46:00 Test Item Value Reference Range Interpretation Comments PTT (test code = PTT) 28.6 s 22.9-35.8 [facility]PdizvojBMLLAOTTVT9324-21-11 18:46:00 Test Item Value Reference Range Interpretation Comments MPV (test code = MPV) 8.1 7.4-10.4 [facility] HospitalPrtdoyhMJRHQKJEHZ2848-12-95 18:46:00 Test Item Value Reference Range Interpretation Comments Platelet (test code = Platelet) 301 133-450 [facility]RcwafqjJTCRQJXXKG2558-94-43 18:46:00 Test Item Value Reference Range Interpretation Comments RDW (test code = RDW) 14.5 11.5-14.5 [facility] HospitalCdpxbzaMUGENETIEG8405-38-79 18:46:00 Test Item Value Reference Range Interpretation Comments RBC (test code = RBC) 4.84 4.70-6.10 [facility] HospitalGcoclqvRWYZJGRUTY9358-20-12 18:46:00 Test Item Value Reference Range Interpretation Comments Hgb (test code = Hgb) 14.4 14.0-18.0 [facility] HospitalFvjtvdeQESBDZVITM1517-84-43 18:46:00 Test Item Value Reference Range Interpretation Comments WBC (test code = WBC) 5.2 3.7-10.4 [facility] HospitalJiadqauWOKQFFPUHM5383-44-29 18:46:00 Test Item Value Reference Range Interpretation Comments MCH (test code = MCH) 29.8 pg 27.0-31.0 [facility] HospitalSgrbatwFABGXOHYBH4767-76-18 18:46:00 Test Item Value Reference Range Interpretation Comments MCV (test code = MCV) 92.0 80.0-94.0 [facility] HospitalDqprdesOAUHLKMSJG7799-60-41 18:46:00 Test Item Value Reference Range Interpretation Comments Hct (test code = Hct) 44.5 42.0-54.0 [facility] HospitalGowgjfkSFTPHRJFEL6566-50-99 18:46:00 Test Item Value Reference Range Interpretation Comments MCHC (test code = MCHC) 32.4 32.0-36.0 [facility] HospitalYnhcgycCAYVLSJMYH4583-98-64 18:46:00 Test Item Value Reference Range Interpretation Comments [place]-Hep C Ab (test Negative *NA*(07/22/14 code = [place]-Hep C 1:46 PM) Ab) [facility] AND [id number] 18:46:00 Test Item Value Reference Range Interpretation Comments UA Urobilinogen (test code = UA <=1.0 mg/dL 0.1-1.0 Urobilinogen) [facility] AND [id number] 18:46:00 Test Item Value Reference Range Interpretation Comments UA Sq Epi (test code = UA Sq Epi) None Seen [facility] AND [id number] 18:46:00 Test Item Value Reference Range Interpretation Comments UA Leuk Est (test Negative (07/22/14 1:46 code = UA Leuk Est) PM) [facility] AND [id number] 18:46:00 Test Item Value Reference Range Interpretation Comments UA Nitrite (test code Negative (07/22/14 1:46 = UA Nitrite) PM) [facility] AND [id number] 18:46:00 Test Item Value Reference Range Interpretation Comments UA Blood (test code = Negative (07/22/14 1:46 UA Blood) PM) [facility] AND [id number] 18:46:00 Test Item Value Reference Range Interpretation Comments UA Ketones (test code = UA Negative mg/dL Ketones) [facility] AND [id number] 18:46:00 Test Item Value Reference Range Interpretation Comments UA Bili (test code = Negative *NA*(07/22/14 UA Bili) 1:46 PM) [facility] AND [id number] 18:46:00 Test Item Value Reference Range Interpretation Comments UA Bacteria (test code = UA Occasional /HPF Bacteria) [facility] AND [id number] 18:46:00 Test Item Value Reference Range Interpretation Comments UA RBC (test code = no gt See_Comment [Automa elizabeth message] The UA RBC) system which ge nerated this result transmit elizabeth reference range : <=2. The reference range was not used to interpr et this result as lukas l/abnormal. [facility] AND [id number] 18:46:00 Test Item Value Reference Range Interpretation Comments UA WBC (test code = 1 See_Comment [Automa elizabeth message] The UA WBC) system which ge nerated this result transmit elizabeth reference range : <=5. The reference range was not used to interpr et this result as lukas l/abnormal. [facility] AND [id number] 18:46:00 Test Item Value Reference Range Interpretation Comments UA Glucose (test code = UA Glucose) 30 mg/dL [facility] AND [id number] 18:46:00 Test Item Value Reference Range Interpretation Comments UA Protein (test code = UA Negative mg/dL Protein) [facility] AND [id number] 18:46:00 Test Item Value Reference Range Interpretation Comments UA pH (test code = UA pH) 6.5 5.0-8.0 [facility] AND [id number] 18:46:00 Test Item Value Reference Range Interpretation Comments UA Turbidity (test code = Clear (07/22/14 1:46 UA Turbidity) PM) [facility] AND [id number] 18:46:00 Test Item Value Reference Range Interpretation Comments UA Spec Grav (test code = UA Spec Grav) 1.[address] [facility] AND [id number] 18:46:00 Test Item Value Reference Range Interpretation Comments UA Color (test code = Light Yellow UA Color) *NA*(07/22/14 1:46 PM) [facility] [id number] 18:46:00 Test Item Value Reference Range Interpretation Comments Magnesium Lvl (test code = Magnesium 1.8 1.8-2.4 Lvl) [facility] CenterJsfjlgmLMUMTEOQRCEX7235-34-69 18:46:00 Test Item Value Reference Range Interpretation Comments AGAP (test code = AGAP) 13.2 10.0-20.0 [facility] CenterDkvgfzoMDXXEWATFQQP6041-01-15 18:46:00 Test Item Value Reference Range Interpretation Comments B/C Ratio (test code = B/C Ratio) 18 6-25 [facility] CenterKcbhdswXRDTNQSBVEVR9230-92-36 18:46:00 Test Item Value Reference Range Interpretation Comments A/G Ratio (test code = A/G Ratio) 1.1 0.7-1.6 [facility] CenterWyzkdzdIBJXEUXXOHGZ5206-86-29 18:46:00 Test Item Value Reference Range Interpretation Comments Globulin (test code = Globulin) 3.3 2.0-4.0 [facility] CenterQuuydwkUZCEVUPLDPWE5630-42-84 18:46:00 Test Item Value Reference Range Interpretation Comments eGFR (test code = eGFR) 99 [facility] CenterKqizqynODHORCGQZIYI6911-62-33 18:46:00 Test Item Value Reference Range Interpretation Comments Calcium Lvl (test code = Calcium Lvl) 9.0 8.5-10.5 [facility] CenterBwwofchLYOVGQXAHTJT9557-04-86 18:46:00 Test Item Value Reference Range Interpretation Comments Chloride Lvl (test code = Chloride Lvl) 106 95-109 [facility] CenterCkpweeqCHRLTJMFNFES6370-06-96 18:46:00 Test Item Value Reference Range Interpretation Comments Creatinine Lvl (test code = Creatinine 0.9 0.5-1.4 Lvl) [facility] CenterVmhdkfqVDBLUPEQLGFU2419-50-40 18:46:00 Test Item Value Reference Range Interpretation Comments Potassium Lvl (test code = Potassium 4.2 3.5-5.1 Lvl) [facility] CenterGemjmduNBNBGAWXSETZ5284-99-13 18:46:00 Test Item Value Reference Range Interpretation Comments Sodium Lvl (test code = Sodium Lvl) 139 135-145 [facility] CenterZyozxxoNYNPSLVUKFZV8877-08-01 18:46:00 Test Item Value Reference Range Interpretation Comments CO2 (test code = CO2) 24 24-32 [facility] CenterXhkqcyqVEUMUBXOWCSZ7494-18-34 18:46:00 Test Item Value Reference Range Interpretation Comments BUN (test code = BUN) 16 7-22 [facility] CenterEorosyuZIHMYAVXEGBR4181-17-95 18:46:00 Test Item Value Reference Range Interpretation Comments Glucose Lvl (test code = Glucose Lvl) 141 70-99 [facility] CenterXlkqiepTZPCWUGHJQAP9808-79-61 18:46:00 Test Item Value Reference Range Interpretation Comments Albumin Lvl (test code = Albumin Lvl) 3.6 3.5-5.0 [facility] CenterLkbuphkPBQWETSLRANI4211-39-74 18:46:00 Test Item Value Reference Range Interpretation Comments Alk Phos (test code = Alk Phos) 65 39-136 [facility] CenterYktkjtjTHLZFQRBZGFF9286-75-02 18:46:00 Test Item Value Reference Range Interpretation Comments Bili Total (test code = Bili Total) 0.3 0.2-1.3 [facility] CenterHgsabhvTQZZFDXAATMY7649-02-56 18:46:00 Test Item Value Reference Range Interpretation Comments ALT (test code = ALT) 100 See_Comment [Auto mated message] The system which ge nerated this result transmit elizabeth reference range : <=65. The reference range was not used to interpr et this result as lukas l/abnormal. [facility] CenterVgnbborYDSUMUNVILVX0720-34-05 18:46:00 Test Item Value Reference Range Interpretation Comments AST (test code = AST) 53 See_Comment [Auto mated message] The system which ge nerated this result transmit elizabeth reference range : <=37. The reference range was not used to interpr et this result as lukas l/abnormal. [facility] CenterJaqgcmxYXBMGBHXDTLJ0663-13-22 18:46:00 Test Item Value Reference Range Interpretation Comments Total Protein (test code = Total 6.9 6.4-8.4 Protein) [facility] CenterPtsklxbYFDTOOJJAE8184-83-36 18:46:00 Test Item Value Reference Range Interpretation Comments Eosinophils (test code = 4.2 See_Comment [A utomated message] The Eosinophils) system which ge nerated this result tra nsmitted reference range : <=4.0. The reference r mitra was not used to int erpret this result as normal/abnormal . [facility] CenterZjlcuslKBRQNXQEMP0341-66-12 18:46:00 Test Item Value Reference Range Interpretation Comments Segs (test code = Segs) 56.4 45.0-75.0 [facility] CenterMojvjhuSMJIRQSSTO9883-25-20 18:46:00 Test Item Value Reference Range Interpretation Comments Monocytes (test code = Monocytes) 10.3 2.0-12.0 [place] [id number] 18:46:00 Test Item Value Reference Range Interpretation Comments Lymphocytes (test code = Lymphocytes) 28.0 20.0-40.0 [facility] CenterNvtjtqzHBRVZTMQCL1771-16-92 18:46:00 Test Item Value Reference Range Interpretation Comments Monocytes # (test code 0.5 See_Comment [Aut omated message] The = Monocytes #) system which generated this result tra nsmitted reference range : <=0.8. The reference r mitra was not used to int erpret this result as normal/abnormal . [facility] CenterSwvzovxQBXPXOKKIZ9106-49-90 18:46:00 Test Item Value Reference Range Interpretation Comments Basophils (test code = 1.1 See_Comment [Aut omated message] The Basophils) system which ge nerated this result tra nsmitted reference range : <=1.0. The reference r mitra was not used to int erpret this result as normal/abnormal . [facility] CenterBpifakvLKKWTLZZBA2713-49-52 18:46:00 Test Item Value Reference Range Interpretation Comments Lymphocytes # (test code = Lymphocytes 1.5 1.0-5.5 #) [facility] CenterVsfakbsYEECUTUZUP8872-60-94 18:46:00 Test Item Value Reference Range Interpretation Comments Segs-Bands # (test code = Segs-Bands #) 2.9 1.5-8.1 [facility] CenterPwfjfbgQPFZRRVCDW8215-55-68 18:46:00 Test Item Value Reference Range Interpretation Comments Eosinophils # (test code 0.2 See_Comment [A utomated message] The = Eosinophils #) system whic h generated this result tra nsmitted reference range : <=0.5. The reference r mitra was not used to int erpret this result as normal/abnormal . [facility] CenterHgxnoisOAQUQJDKXB5120-27-58 18:46:00 Test Item Value Reference Range Interpretation Comments Basophils # (test code 0.1 See_Comment [Aut omated message] The = Basophils #) system which generated this result tra nsmitted reference range : <=0.2. The reference r mitra was not used to int erpret this result as normal/abnormal . [facility] CenterKhctzmuJCXNUBPFQV5392-58-11 18:46:00 Test Item Value Reference Range Interpretation Comments PT (test code = PT) 11.2 s 12.0-14.7 [facility] CenterRvfecduYOJCEWXXAC2147-14-20 18:46:00 Test Item Value Reference Range Interpretation Comments INR (test code = INR) 0.82 0.85-1.17 [facility] CenterDwcvtlyNJUQZOOZBI6969-04-27 18:46:00 Test Item Value Reference Range Interpretation Comments PTT (test code = PTT) 28.6 s 22.9-35.8 [facility] CenterClrwkqlCGVKCYPUCG4041-21-53 18:46:00 Test Item Value Reference Range Interpretation Comments MPV (test code = MPV) 8.1 7.4-10.4 [facility] CenterUlacdvwNSEVJMIWBP2362-81-30 18:46:00 Test Item Value Reference Range Interpretation Comments Platelet (test code = Platelet) 301 133-450 [facility] CenterFwqrycaAOSJPZFDCN5624-50-53 18:46:00 Test Item Value Reference Range Interpretation Comments RDW (test code = RDW) 14.5 11.5-14.5 [facility] HospitalSweeppmARFOGKUPTT3741-11-34 18:46:00 Test Item Value Reference Range Interpretation Comments RBC (test code = RBC) 4.84 4.70-6.10 [facility] HospitalXpqxpyxFLLIYQBMES0663-51-05 18:46:00 Test Item Value Reference Range Interpretation Comments Hgb (test code = Hgb) 14.4 14.0-18.0 [facility] CenterWhcjcmsUNEZHTVMJX2255-51-61 18:46:00 Test Item Value Reference Range Interpretation Comments WBC (test code = WBC) 5.2 3.7-10.4 [facility] HospitalEvhosnoFJKFXNOLTE8559-04-03 18:46:00 Test Item Value Reference Range Interpretation Comments MCH (test code = MCH) 29.8 pg 27.0-31.0 [facility] CenterStdcebaJDYSJGHSXL0403-01-19 18:46:00 Test Item Value Reference Range Interpretation Comments MCV (test code = MCV) 92.0 80.0-94.0 [facility] CenterXnagtxyXGCKXDBUJC5322-73-47 18:46:00 Test Item Value Reference Range Interpretation Comments Hct (test code = Hct) 44.5 42.0-54.0 [facility] HospitalXciyrjfNKNKYDPWNI6797-66-99 18:46:00 Test Item Value Reference Range Interpretation Comments MCHC (test code = MCHC) 32.4 32.0-36.0 [facility]NfhijwxJIZQLPSKKE3168-67-43 18:46:00 Test Item Value Reference Range Interpretation Comments [place]Hep C Ab (test Negative *NA*(07/22/14 code = [place]-Hep C 1:46 PM) Ab) [facility] AND [id number] 18:46:00 Test Item Value Reference Range Interpretation Comments UA Urobilinogen (test code = UA <=1.0 mg/dL 0.1-1.0 Urobilinogen) [facility] AND [id number] 18:46:00 Test Item Value Reference Range Interpretation Comments UA Sq Epi (test code = UA Sq Epi) None Seen [facility] AND [id number] 18:46:00 Test Item Value Reference Range Interpretation Comments UA Leuk Est (test Negative (07/22/14 1:46 code = UA Leuk Est) PM) [facility] AND [id number] 18:46:00 Test Item Value Reference Range Interpretation Comments UA Nitrite (test code Negative (07/22/14 1:46 = UA Nitrite) PM) [facility] AND [id number] 18:46:00 Test Item Value Reference Range Interpretation Comments UA Blood (test code = Negative (07/22/14 1:46 UA Blood) PM) [facility] AND [id number] 18:46:00 Test Item Value Reference Range Interpretation Comments UA Ketones (test code = UA Negative mg/dL Ketones) [facility] AND [id number] 18:46:00 Test Item Value Reference Range Interpretation Comments UA Bili (test code = Negative *NA*(07/22/14 UA Bili) 1:46 PM) [facility] AND [id number] 18:46:00 Test Item Value Reference Range Interpretation Comments UA Bacteria (test code = UA Occasional /HPF Bacteria) [facility] AND [id number] 18:46:00 Test Item Value Reference Range Interpretation Comments UA RBC (test code = no gt See_Comment [Automa elizabeth message] The UA RBC) system which ge nerated this result transmit elizabeth reference range : <=2. The reference range was not used to interpr et this result as lukas l/abnormal. [facility] AND [id number] 18:46:00 Test Item Value Reference Range Interpretation Comments UA WBC (test code = 1 See_Comment [Automa elizabeth message] The UA WBC) system which ge nerated this result transmit elizabeth reference range : <=5. The reference range was not used to interpr et this result as lukas l/abnormal. [facility] AND [id number] 18:46:00 Test Item Value Reference Range Interpretation Comments UA Glucose (test code = UA Glucose) 30 mg/dL [facility] AND [id number] 18:46:00 Test Item Value Reference Range Interpretation Comments UA Protein (test code = UA Negative mg/dL Protein) [facility] AND [id number] 18:46:00 Test Item Value Reference Range Interpretation Comments UA pH (test code = UA pH) 6.5 5.0-8.0 [facility] AND [id number] 18:46:00 Test Item Value Reference Range Interpretation Comments UA Turbidity (test code = Clear (07/22/14 1:46 UA Turbidity) PM) [facility] AND [id number] 18:46:00 Test Item Value Reference Range Interpretation Comments UA Spec Grav (test code = UA Spec Grav) 1.[address] [facility] AND [id number] 18:46:00 Test Item Value Reference Range Interpretation Comments UA Color (test code = Light Yellow UA Color) *NA*(07/22/14 1:46 PM) [facility] [id number] 18:46:00 Test Item Value Reference Range Interpretation Comments Magnesium Lvl (test code = Magnesium 1.8 1.8-2.4 Lvl) [facility] CenterGjjowtrZOKMOWTQQKYP5015-89-65 18:46:00 Test Item Value Reference Range Interpretation Comments AGAP (test code = AGAP) 13.2 10.0-20.0 [facility] CenterSslraddREWJAEUSCBUK0483-17-77 18:46:00 Test Item Value Reference Range Interpretation Comments B/C Ratio (test code = B/C Ratio) 18 6-25 [facility] CenterTplrwajXLEBRABAGSJT4638-57-92 18:46:00 Test Item Value Reference Range Interpretation Comments A/G Ratio (test code = A/G Ratio) 1.1 0.7-1.6 [facility] CenterJubufwpFMXBGNVAKAET5463-83-63 18:46:00 Test Item Value Reference Range Interpretation Comments Globulin (test code = Globulin) 3.3 2.0-4.0 [facility] CenterQtvvvqdQIBHZOPHOJZF7540-98-45 18:46:00 Test Item Value Reference Range Interpretation Comments eGFR (test code = eGFR) 99 [facility] CenterBimsbzrMABJLZZGWQMO9652-10-77 18:46:00 Test Item Value Reference Range Interpretation Comments Calcium Lvl (test code = Calcium Lvl) 9.0 8.5-10.5 [facility] CenterKemxuwgDQGOHCUXACEO7524-07-69 18:46:00 Test Item Value Reference Range Interpretation Comments Chloride Lvl (test code = Chloride Lvl) 106 95-109 [facility] CenterLtbvgnhASEUZMDQBBKP0086-66-59 18:46:00 Test Item Value Reference Range Interpretation Comments Creatinine Lvl (test code = Creatinine 0.9 0.5-1.4 Lvl) [facility] CenterHmeatxyZSCGFOYHHMRT9610-49-88 18:46:00 Test Item Value Reference Range Interpretation Comments Potassium Lvl (test code = Potassium 4.2 3.5-5.1 Lvl) [facility] CenterRplbpeaAALAMPEJNHKT2428-81-40 18:46:00 Test Item Value Reference Range Interpretation Comments Sodium Lvl (test code = Sodium Lvl) 139 135-145 [facility] CenterSttqecjWCVQMIGYIEUB5331-20-78 18:46:00 Test Item Value Reference Range Interpretation Comments CO2 (test code = CO2) 24 24-32 [facility] CenterCpwukolAGNEYYDPEXKR0457-63-34 18:46:00 Test Item Value Reference Range Interpretation Comments BUN (test code = BUN) 16 7-22 [facility] CenterOyuzsyuBYOKYRJFATMT4845-61-46 18:46:00 Test Item Value Reference Range Interpretation Comments Glucose Lvl (test code = Glucose Lvl) 141 70-99 [facility] CenterKvzjntsWXNKWVBUKKZP2451-92-65 18:46:00 Test Item Value Reference Range Interpretation Comments Albumin Lvl (test code = Albumin Lvl) 3.6 3.5-5.0 [facility] CenterRdtncsrXHVIBTGVBHNP4866-04-37 18:46:00 Test Item Value Reference Range Interpretation Comments Alk Phos (test code = Alk Phos) 65 39-136 [facility] CenterFoqwyfeBKQPPUZDGSBD6446-02-80 18:46:00 Test Item Value Reference Range Interpretation Comments Bili Total (test code = Bili Total) 0.3 0.2-1.3 [facility] CenterYevlzouNQHEYXWVPAKK0088-14-83 18:46:00 Test Item Value Reference Range Interpretation Comments ALT (test code = ALT) 100 See_Comment [Auto mated message] The system which ge nerated this result transmit elizabeth reference range : <=65. The reference range was not used to interpr et this result as lukas l/abnormal. [facility]EvhpjgsQWHONZFHLFLO7949-27-11 18:46:00 Test Item Value Reference Range Interpretation Comments AST (test code = AST) 53 See_Comment [Auto mated message] The system which ge nerated this result transmit elizabeth reference range : <=37. The reference range was not used to interpr et this result as lukas l/abnormal. [facility] CenterJjyinhwOSUDDNEAVTHI5107-98-45 18:46:00 Test Item Value Reference Range Interpretation Comments Total Protein (test code = Total 6.9 6.4-8.4 Protein) [facility] CenterLdsesauESIREFSEGP3469-50-92 18:46:00 Test Item Value Reference Range Interpretation Comments Eosinophils (test code = 4.2 See_Comment [A utomated message] The Eosinophils) system which ge nerated this result tra nsmitted reference range : <=4.0. The reference r mitra was not used to int erpret this result as normal/abnormal . [facility] CenterJwcpqibRVNKGTYZHU0182-32-67 18:46:00 Test Item Value Reference Range Interpretation Comments Segs (test code = Segs) 56.4 45.0-75.0 [facility] CenterXodnepsOPYFHNURIU4424-32-95 18:46:00 Test Item Value Reference Range Interpretation Comments Monocytes (test code = Monocytes) 10.3 2.0-12.0 [facility] CenterGrjkozrUJXBFREKTJ2197-45-32 18:46:00 Test Item Value Reference Range Interpretation Comments Lymphocytes (test code = Lymphocytes) 28.0 20.0-40.0 [facility] CenterPjqcergNSXBXMWIFS5755-22-12 18:46:00 Test Item Value Reference Range Interpretation Comments Monocytes # (test code 0.5 See_Comment [Aut omated message] The = Monocytes #) system which generated this result tra nsmitted reference range : <=0.8. The reference r mitra was not used to int erpret this result as normal/abnormal . [facility] CenterUuwadyoYEIBFUSMJP5790-71-53 18:46:00 Test Item Value Reference Range Interpretation Comments Basophils (test code = 1.1 See_Comment [Aut omated message] The Basophils) system which ge nerated this result tra nsmitted reference range : <=1.0. The reference r mitra was not used to int erpret this result as normal/abnormal . [facility] CenterLvnbgzkMLLHSZIWQX4215-93-16 18:46:00 Test Item Value Reference Range Interpretation Comments Lymphocytes # (test code = Lymphocytes 1.5 1.0-5.5 #) [facility] CenterIcwbhxhDALSTBONSF7459-62-89 18:46:00 Test Item Value Reference Range Interpretation Comments Segs-Bands # (test code = Segs-Bands #) 2.9 1.5-8.1 [facility] CenterMsmvnwxGOAFKTSSXT3457-01-15 18:46:00 Test Item Value Reference Range Interpretation Comments Eosinophils # (test code 0.2 See_Comment [A utomated message] The = Eosinophils #) system whic h generated this result tra nsmitted reference range : <=0.5. The reference r mitra was not used to int erpret this result as normal/abnormal . [facility] CenterBbmedvdDGUQUOGYXZ4578-21-00 18:46:00 Test Item Value Reference Range Interpretation Comments Basophils # (test code 0.1 See_Comment [Aut omated message] The = Basophils #) system which generated this result tra nsmitted reference range : <=0.2. The reference r mitra was not used to int erpret this result as normal/abnormal . [facility] CenterZxdexukPOVGSNQGNP7566-22-47 18:46:00 Test Item Value Reference Range Interpretation Comments PT (test code = PT) 11.2 s 12.0-14.7 [facility] CenterAgffkdlCVJTPVHGFN1166-62-78 18:46:00 Test Item Value Reference Range Interpretation Comments INR (test code = INR) 0.82 0.85-1.17 [facility] CenterIpqcocdSCBIIIUIZR8779-04-76 18:46:00 Test Item Value Reference Range Interpretation Comments PTT (test code = PTT) 28.6 s 22.9-35.8 [facility] CenterBgrvydgASDIKQNZRW9208-27-78 18:46:00 Test Item Value Reference Range Interpretation Comments MPV (test code = MPV) 8.1 7.4-10.4 [facility] CenterMokxisrDGMLNNWRZC4674-64-19 18:46:00 Test Item Value Reference Range Interpretation Comments Platelet (test code = Platelet) 301 133-450 [facility] CenterPocxonlOFYXCMVDTJ1211-23-84 18:46:00 Test Item Value Reference Range Interpretation Comments RDW (test code = RDW) 14.5 11.5-14.5 [facility] CenterMrexzvyDRLZUXQXQS2602-03-31 18:46:00 Test Item Value Reference Range Interpretation Comments RBC (test code = RBC) 4.84 4.70-6.10 [facility] CenterRqnxgswIKGYUKZIJL9676-54-09 18:46:00 Test Item Value Reference Range Interpretation Comments Hgb (test code = Hgb) 14.4 14.0-18.0 [facility] CenterGhnlfjoJJHHAIZAXR6986-31-58 18:46:00 Test Item Value Reference Range Interpretation Comments WBC (test code = WBC) 5.2 3.7-10.4 [facility] CenterBodvwiwHIYVWAAFZH6634-01-21 18:46:00 Test Item Value Reference Range Interpretation Comments MCH (test code = MCH) 29.8 pg 27.0-31.0 [facility]QQTWFPBA1617[facility] 18:46:00 Test Item Value Reference Range Interpretation Comments MCV (test code = MCV) 92.0 80.0-94.0 [facility]qclizlREZGPYQBBW6412-[facility]-98 18:46:00 Test Item Value Reference Range Interpretation Comments Hct (test code = Hct) 44.5 42.0-54.0 [facility]BiabooeNQSPWCEHCZ2575-44-85 18:46:00 Test Item Value Reference Range Interpretation Comments MCHC (test code = MCHC) 32.4 32.0-36.0 [facility] HospitalEmmdaxzSZDXJETUZA0592-61-86 18:46:00 Test Item Value Reference Range Interpretation Comments [place]-Hep C Ab (test Negative *NA*(07/22/14 code = [place]-Hep C 1:46 PM) Ab) [facility] AND [id number] 18:46:00 Test Item Value Reference Range Interpretation Comments UA Urobilinogen (test code = UA <=1.0 mg/dL 0.1-1.0 Urobilinogen) [facility] AND [id number] 18:46:00 Test Item Value Reference Range Interpretation Comments UA Sq Epi (test code = UA Sq Epi) None Seen [facility] AND [id number] 18:46:00 Test Item Value Reference Range Interpretation Comments UA Leuk Est (test Negative (07/22/14 1:46 code = UA Leuk Est) PM) [facility] AND [id number] 18:46:00 Test Item Value Reference Range Interpretation Comments UA Nitrite (test code Negative (07/22/14 1:46 = UA Nitrite) PM) [facility] AND [id number] 18:46:00 Test Item Value Reference Range Interpretation Comments UA Blood (test code = Negative (07/22/14 1:46 UA Blood) PM) [facility] AND [id number] 18:46:00 Test Item Value Reference Range Interpretation Comments UA Ketones (test code = UA Negative mg/dL Ketones) [facility] AND [id number] 18:46:00 Test Item Value Reference Range Interpretation Comments UA Bili (test code = Negative *NA*(07/22/14 UA Bili) 1:46 PM) [facility] [id number] 18:46:00 Test Item Value Reference Range Interpretation Comments UA Bacteria (test code = UA Occasional /HPF Bacteria) [facility] [id number] 18:46:00 Test Item Value Reference Range Interpretation Comments UA RBC (test code = no gt See_Comment [Automa elizabeth message] The UA RBC) system which ge nerated this result transmit elizabeth reference range : <=2. The reference range was not used to interpr et this result as lukas l/abnormal. [facility] [id number] 18:46:00 Test Item Value Reference Range Interpretation Comments UA WBC (test code = 1 See_Comment [Automa elizabeth message] The UA WBC) system which ge nerated this result transmit elizabeth reference range : <=5. The reference range was not used to interpr et this result as lukas l/abnormal. [facility] [id number] 18:46:00 Test Item Value Reference Range Interpretation Comments UA Glucose (test code = UA Glucose) 30 mg/dL [facility] [id number] 18:46:00 Test Item Value Reference Range Interpretation Comments UA Protein (test code = UA Negative mg/dL Protein) [facility] [id number] 18:46:00 Test Item Value Reference Range Interpretation Comments UA pH (test code = UA pH) 6.5 5.0-8.0 [facility] [id number] 18:46:00 Test Item Value Reference Range Interpretation Comments UA Turbidity (test code = Clear (07/22/14 1:46 UA Turbidity) PM) [facility] [id number] 18:46:00 Test Item Value Reference Range Interpretation Comments UA Spec Grav (test code = UA Spec Grav) 1.010 [facility] [id number] 18:46:00 Test Item Value Reference Range Interpretation Comments UA Color (test code = Light Yellow UA Color) *NA*(07/22/14 1:46 PM) [facility] [id number] 18:46:00 Test Item Value Reference Range Interpretation Comments Magnesium Lvl (test code = Magnesium 1.8 1.8-2.4 Lvl) [facility] CenterHjsvaleWJEKVBTUWLRG4797-78-20 18:46:00 Test Item Value Reference Range Interpretation Comments AGAP (test code = AGAP) 13.2 10.0-20.0 [facility] CenterWbkwzchXOKUYBAKOROI2748-42-90 18:46:00 Test Item Value Reference Range Interpretation Comments B/C Ratio (test code = B/C Ratio) 18 6-25 [facility] CenterYcagqydAOXPLAKNWWVR1366-68-21 18:46:00 Test Item Value Reference Range Interpretation Comments A/G Ratio (test code = A/G Ratio) 1.1 0.7-1.6 [facility] CenterHxajkemTWNMHXTDAJRQ0208-75-35 18:46:00 Test Item Value Reference Range Interpretation Comments Globulin (test code = Globulin) 3.3 2.0-4.0 [facility] CenterIixtofoXMCXUVEENASG8614-65-08 18:46:00 Test Item Value Reference Range Interpretation Comments eGFR (test code = eGFR) 99 [facility] CenterUdgnjypZDTWXMMNHRNX6827-89-08 18:46:00 Test Item Value Reference Range Interpretation Comments Calcium Lvl (test code = Calcium Lvl) 9.0 8.5-10.5 [facility] CenterZuordbtWMIUATPAGHSN7993-67-48 18:46:00 Test Item Value Reference Range Interpretation Comments Chloride Lvl (test code = Chloride Lvl) 106 95-109 [facility] CenterBhoicvuAYDXSGHZBLDG2461-29-61 18:46:00 Test Item Value Reference Range Interpretation Comments Creatinine Lvl (test code = Creatinine 0.9 0.5-1.4 Lvl) [facility] CenterAlqhvsrBTNMEDFPQCQJ6610-19-87 18:46:00 Test Item Value Reference Range Interpretation Comments Potassium Lvl (test code = Potassium 4.2 3.5-5.1 Lvl) [facility] CenterNzchnddQQRQBJZYWBXJ7773-71-60 18:46:00 Test Item Value Reference Range Interpretation Comments Sodium Lvl (test code = Sodium Lvl) 139 135-145 [facility] CenterOwmieprBRUKNWXPCSBE1913-43-08 18:46:00 Test Item Value Reference Range Interpretation Comments CO2 (test code = CO2) 24 24-32 [facility] CenterEggkajtTSDECTCKWJCQ8006-88-87 18:46:00 Test Item Value Reference Range Interpretation Comments BUN (test code = BUN) 16 7-22 [facility] CenterNnosaffUPPSXLBNIDYT8861-47-95 18:46:00 Test Item Value Reference Range Interpretation Comments Glucose Lvl (test code = Glucose Lvl) 141 70-99 [facility] CenterVymtwnmLOIULPKZXJHV1758-70-67 18:46:00 Test Item Value Reference Range Interpretation Comments Albumin Lvl (test code = Albumin Lvl) 3.6 3.5-5.0 [facility] CenterFqgnplpLEWPWJLXQDCH9120-25-12 18:46:00 Test Item Value Reference Range Interpretation Comments Alk Phos (test code = Alk Phos) 65 39-136 [facility] CenterNeruwnaJVODUQSCKSSO8563-39-14 18:46:00 Test Item Value Reference Range Interpretation Comments Bili Total (test code = Bili Total) 0.3 0.2-1.3 [facility] CenterDtqlycbGLVRJCKVSWIV5764-55-84 18:46:00 Test Item Value Reference Range Interpretation Comments ALT (test code = ALT) 100 See_Comment [Auto mated message] The system which ge nerated this result transmit elizabeth reference range : <=65. The reference range was not used to interpr et this result as lukas l/abnormal. [facility] CenterJpeqqcmYHNNJJTCKDKQ9282-21-71 18:46:00 Test Item Value Reference Range Interpretation Comments AST (test code = AST) 53 See_Comment [Auto mated message] The system which ge nerated this result transmit elizabeth reference range : <=37. The reference range was not used to interpr et this result as lukas l/abnormal. [facility] CenterXydiwkzHRSAUNKODMBG7990-73-20 18:46:00 Test Item Value Reference Range Interpretation Comments Total Protein (test code = Total 6.9 6.4-8.4 Protein) [facility] CenterGtkirpiVVXNOUFLPR4274-04-56 18:46:00 Test Item Value Reference Range Interpretation Comments Eosinophils (test code = 4.2 See_Comment [A utomated message] The Eosinophils) system which ge nerated this result tra nsmitted reference range : <=4.0. The reference r mitra was not used to int erpret this result as normal/abnormal . [facility] CenterNrrbhecUFDQVBTEEM3279-21-72 18:46:00 Test Item Value Reference Range Interpretation Comments Segs (test code = Segs) 56.4 45.0-75.0 [facility] CenterXcahbqjDDCSZCNAJZ7941-13-77 18:46:00 Test Item Value Reference Range Interpretation Comments Monocytes (test code = Monocytes) 10.3 2.0-12.0 [facility] CenterCgkuipgEDYZCJBORH9044-12-05 18:46:00 Test Item Value Reference Range Interpretation Comments Lymphocytes (test code = Lymphocytes) 28.0 20.0-40.0 [facility] CenterVqasoxuEKZDNKWYKZ4799-99-03 18:46:00 Test Item Value Reference Range Interpretation Comments Monocytes # (test code 0.5 See_Comment [Aut omated message] The = Monocytes #) system which generated this result tra nsmitted reference range : <=0.8. The reference r mitra was not used to int erpret this result as normal/abnormal . [facility] CenterCbkefwtRWULTLUJAJ8038-77-21 18:46:00 Test Item Value Reference Range Interpretation Comments Basophils (test code = 1.1 See_Comment [Aut omated message] The Basophils) system which ge nerated this result tra nsmitted reference range : <=1.0. The reference r mitra was not used to int erpret this result as normal/abnormal . [facility] CenterHhvvlncVBFAPEYNCB3284-53-50 18:46:00 Test Item Value Reference Range Interpretation Comments Lymphocytes # (test code = Lymphocytes 1.5 1.0-5.5 #) [facility] CenterUiiohnmPREPDPHLWJ5341-24-81 18:46:00 Test Item Value Reference Range Interpretation Comments Segs-Bands # (test code = Segs-Bands #) 2.9 1.5-8.1 [facility] CenterHaexnelODVVIGGIAK8734-45-88 18:46:00 Test Item Value Reference Range Interpretation Comments Eosinophils # (test code 0.2 See_Comment [A utomated message] The = Eosinophils #) system whic h generated this result tra nsmitted reference range : <=0.5. The reference r mitra was not used to int erpret this result as normal/abnormal . [facility] CenterWscqzkoVGOVGJASKU8240-57-54 18:46:00 Test Item Value Reference Range Interpretation Comments Basophils # (test code 0.1 See_Comment [Aut omated message] The = Basophils #) system which generated this result tra nsmitted reference range : <=0.2. The reference r mitra was not used to int erpret this result as normal/abnormal . [facility] CenterMqljziuYZCWLFLHXQ0867-55-37 18:46:00 Test Item Value Reference Range Interpretation Comments PT (test code = PT) 11.2 s 12.0-14.7 [facility] CenterAfuuemoLLQJZMYTTS5777-31-28 18:46:00 Test Item Value Reference Range Interpretation Comments INR (test code = INR) 0.82 0.85-1.17 [place] [id number] 18:46:00 Test Item Value Reference Range Interpretation Comments PTT (test code = PTT) 28.6 s 22.9-35.8 [facility] CenterGemxgrbLANPJFZATH0105-43-66 18:46:00 Test Item Value Reference Range Interpretation Comments MPV (test code = MPV) 8.1 7.4-10.4 [facility] CenterEwfttwjVAVBMWSABQ3863-18-27 18:46:00 Test Item Value Reference Range Interpretation Comments Platelet (test code = Platelet) 301 133-450 [facility] CenterVqpqzfgJZYCWMBIDN8446-61-92 18:46:00 Test Item Value Reference Range Interpretation Comments RDW (test code = RDW) 14.5 11.5-14.5 [facility] CenterUufbsgnUTQUAEFROH3208-74-53 18:46:00 Test Item Value Reference Range Interpretation Comments RBC (test code = RBC) 4.84 4.70-6.10 [facility] CenterNzomlufDNVBDKLYSV1491-38-06 18:46:00 Test Item Value Reference Range Interpretation Comments Hgb (test code = Hgb) 14.4 14.0-18.0 [facility] CenterYmppkjnIDTQMQDOQD2335-06-98 18:46:00 Test Item Value Reference Range Interpretation Comments WBC (test code = WBC) 5.2 3.7-10.4 [facility] CenterHudkcsmYMWJVJGCKT0634-31-21 18:46:00 Test Item Value Reference Range Interpretation Comments MCH (test code = MCH) 29.8 pg 27.0-31.0 [facility] CenterGokgwkzKUSHUUHQBF7754-87-54 18:46:00 Test Item Value Reference Range Interpretation Comments MCV (test code = MCV) 92.0 80.0-94.0 [facility] CenterXviikusDHOLRCQSPW4881-34-40 18:46:00 Test Item Value Reference Range Interpretation Comments Hct (test code = Hct) 44.5 42.0-54.0 [facility] CenterZyildwkBVIDVRMNGK6317-78-39 18:46:00 Test Item Value Reference Range Interpretation Comments MCHC (test code = MCHC) 32.4 32.0-36.0 [facility] HcmnskkVITXXMSQID3354-93-78 18:46:00 Test Item Value Reference Range Interpretation Comments [place]-Hep C Ab (test Negative *NA*(07/22/14 code = [place]-Hep C 1:46 PM) Ab) [facility] AND [id number] 18:46:00 Test Item Value Reference Range Interpretation Comments UA Urobilinogen (test code = UA <=1.0 mg/dL 0.1-1.0 Urobilinogen) [facility] AND [id number] 18:46:00 Test Item Value Reference Range Interpretation Comments UA Sq Epi (test code = UA Sq Epi) None Seen [facility] AND [id number] 18:46:00 Test Item Value Reference Range Interpretation Comments UA Leuk Est (test Negative (07/22/14 1:46 code = UA Leuk Est) PM) [facility] AND [id number] 18:46:00 Test Item Value Reference Range Interpretation Comments UA Nitrite (test code Negative (07/22/14 1:46 = UA Nitrite) PM) [facility] AND [id number] 18:46:00 Test Item Value Reference Range Interpretation Comments UA Blood (test code = Negative (07/22/14 1:46 UA Blood) PM) [facility] AND [id number] 18:46:00 Test Item Value Reference Range Interpretation Comments UA Ketones (test code = UA Negative mg/dL Ketones) [facility] AND [id number] 18:46:00 Test Item Value Reference Range Interpretation Comments UA Bili (test code = Negative *NA*(07/22/14 UA Bili) 1:46 PM) [facility] AND [id number] 18:46:00 Test Item Value Reference Range Interpretation Comments UA Bacteria (test code = UA Occasional /HPF Bacteria) [facility] AND [id number] 18:46:00 Test Item Value Reference Range Interpretation Comments UA RBC (test code = no gt See_Comment [Automa elizabeth message] The UA RBC) system which ge nerated this result transmit elizabeth reference range : <=2. The reference range was not used to interpr et this result as lukas l/abnormal. [facility] AND [id number] 18:46:00 Test Item Value Reference Range Interpretation Comments UA WBC (test code = 1 See_Comment [Automa elizabeth message] The UA WBC) system which ge nerated this result transmit elizabeth reference range : <=5. The reference range was not used to interpr et this result as lukas l/abnormal. [facility] AND [id number] 18:46:00 Test Item Value Reference Range Interpretation Comments UA Glucose (test code = UA Glucose) 30 mg/dL [facility] AND [id number] 18:46:00 Test Item Value Reference Range Interpretation Comments UA Protein (test code = UA Negative mg/dL Protein) [facility] AND [id number] 18:46:00 Test Item Value Reference Range Interpretation Comments UA pH (test code = UA pH) 6.5 5.0-8.0 [facility] AND [id number] 18:46:00 Test Item Value Reference Range Interpretation Comments UA Turbidity (test code = Clear (07/22/14 1:46 UA Turbidity) PM) [facility] AND [id number] 18:46:00 Test Item Value Reference Range Interpretation Comments UA Spec Grav (test code = UA Spec Grav) 1.[address] [facility] AND [id number] 18:46:00 Test Item Value Reference Range Interpretation Comments UA Color (test code = Light Yellow UA Color) *NA*(07/22/14 1:46 PM) [facility] [id number] 18:46:00 Test Item Value Reference Range Interpretation Comments Magnesium Lvl (test code = Magnesium 1.8 1.8-2.4 Lvl) [facility] HospitalKyevilcVJRPTLHOBSUR0075-58-10 18:46:00 Test Item Value Reference Range Interpretation Comments AGAP (test code = AGAP) 13.2 10.0-20.0 [facility] CenterCihkyqgCBZNUIUDGBIF5237-08-99 18:46:00 Test Item Value Reference Range Interpretation Comments B/C Ratio (test code = B/C Ratio) 18 6-25 [facility] CenterClcynjwGXQEFNEEILJR2943-59-68 18:46:00 Test Item Value Reference Range Interpretation Comments A/G Ratio (test code = A/G Ratio) 1.1 0.7-1.6 [facility] CenterVgquyspUBNDZTTPWTGT0318-67-62 18:46:00 Test Item Value Reference Range Interpretation Comments Globulin (test code = Globulin) 3.3 2.0-4.0 [facility] CenterRnlmdngIRZTGSSSKQIK1921-88-12 18:46:00 Test Item Value Reference Range Interpretation Comments eGFR (test code = eGFR) 99 [facility] CenterLdjsuiuVNTCABLIFWYU7158-70-12 18:46:00 Test Item Value Reference Range Interpretation Comments Calcium Lvl (test code = Calcium Lvl) 9.0 8.5-10.5 [facility] CenterIcabhzfMUPSGNZDPGLX3287-48-22 18:46:00 Test Item Value Reference Range Interpretation Comments Chloride Lvl (test code = Chloride Lvl) 106 95-109 [facility] CenterKsbbiqzBAXYYGIGMIHI4433-70-71 18:46:00 Test Item Value Reference Range Interpretation Comments Creatinine Lvl (test code = Creatinine 0.9 0.5-1.4 Lvl) [facility] CenterYaqlizlVFAMAKGIFUFI4267-45-45 18:46:00 Test Item Value Reference Range Interpretation Comments Potassium Lvl (test code = Potassium 4.2 3.5-5.1 Lvl) [facility] CenterJzvltdlBQONRKGUVYIM8363-90-55 18:46:00 Test Item Value Reference Range Interpretation Comments Sodium Lvl (test code = Sodium Lvl) 139 135-145 [facility] CenterWgbyxvcJNBWTJIYALUG6436-58-91 18:46:00 Test Item Value Reference Range Interpretation Comments CO2 (test code = CO2) 24 24-32 [facility] CenterXqnejqkMXFJOCCBQRKC5844-66-12 18:46:00 Test Item Value Reference Range Interpretation Comments BUN (test code = BUN) 16 7-22 [facility] CenterHaotrojPMANEIHGQIVT9925-44-84 18:46:00 Test Item Value Reference Range Interpretation Comments Glucose Lvl (test code = Glucose Lvl) 141 70-99 [facility] CenterQsnojlrVZKJJCGTVJAS4426-41-43 18:46:00 Test Item Value Reference Range Interpretation Comments Albumin Lvl (test code = Albumin Lvl) 3.6 3.5-5.0 [facility] [facility]ccpdhxDWHEVEQQCNBY3480-23-12 18:46:00 Test Item Value Reference Range Interpretation Comments Alk Phos (test code = Alk Phos) 65 39-136 [facility]EvnnlwiAFGUJOQHIJRO5795-88-70 18:46:00 Test Item Value Reference Range Interpretation Comments Bili Total (test code = Bili Total) 0.3 0.2-1.3 [facility] CenterPelqaivSCGKMLYYBRKE9225-62-44 18:46:00 Test Item Value Reference Range Interpretation Comments ALT (test code = ALT) 100 See_Comment [Auto mated message] The system which ge nerated this result transmit elizabeth reference range : <=65. The reference range was not used to interpr et this result as lukas l/abnormal. [facility] Center[id number] 18:46:00 Test Item Value Reference Range Interpretation Comments AST (test code = AST) 53 See_Comment [Auto mated message] The system which ge nerated this result transmit elizabeth reference range : <=37. The reference range was not used to interpr et this result as luksa l/abnormal. [facility] CenterHgkbuwvELPURRTWQYGU0949-25-83 18:46:00 Test Item Value Reference Range Interpretation Comments Total Protein (test code = Total 6.9 6.4-8.4 Protein) [facility] CenterIreruujBDHVPBFXAJ8282-03-21 18:46:00 Test Item Value Reference Range Interpretation Comments Eosinophils (test code = 4.2 See_Comment [A utomated message] The Eosinophils) system which ge nerated this result tra nsmitted reference range : <=4.0. The reference r mitra was not used to int erpret this result as normal/abnormal . [facility] CenterPrkldtyYFDRTCGTYB9636-38-10 18:46:00 Test Item Value Reference Range Interpretation Comments Segs (test code = Segs) 56.4 45.0-75.0 [facility] CenterMiemawwRNRIHZEXSI3192-77-95 18:46:00 Test Item Value Reference Range Interpretation Comments Monocytes (test code = Monocytes) 10.3 2.0-12.0 [facility] CenterLdrczchAUULXYXCII6663-87-48 18:46:00 Test Item Value Reference Range Interpretation Comments Lymphocytes (test code = Lymphocytes) 28.0 20.0-40.0 [facility] CenterUrbqujkCYGCPMBVKX8410-57-19 18:46:00 Test Item Value Reference Range Interpretation Comments Monocytes # (test code 0.5 See_Comment [Aut omated message] The = Monocytes #) system which generated this result tra nsmitted reference range : <=0.8. The reference r mitra was not used to int erpret this result as normal/abnormal . [facility] CenterKbqskrtGSONLXYCPL3322-19-25 18:46:00 Test Item Value Reference Range Interpretation Comments Basophils (test code = 1.1 See_Comment [Aut omated message] The Basophils) system which ge nerated this result tra nsmitted reference range : <=1.0. The reference r mitra was not used to int erpret this result as normal/abnormal . [facility] CenterRldcoddQFSVFZZYLO3063-10-79 18:46:00 Test Item Value Reference Range Interpretation Comments Lymphocytes # (test code = Lymphocytes 1.5 1.0-5.5 #) [facility] CenterMxkdtvoPWEYTKAJSP3962-45-81 18:46:00 Test Item Value Reference Range Interpretation Comments Segs-Bands # (test code = Segs-Bands #) 2.9 1.5-8.1 [facility] CenterScwfjmdALGASEKPWX6936-41-85 18:46:00 Test Item Value Reference Range Interpretation Comments Eosinophils # (test code 0.2 See_Comment [A utomated message] The = Eosinophils #) system [facility] generated this result tra nsmitted reference range : <=0.5. The reference r mitra was not used to int erpret this result as normal/abnormal . [facility] CenterFgzlkwiHJNJEQMQWB4410-63-62 18:46:00 Test Item Value Reference Range Interpretation Comments Basophils # (test code 0.1 See_Comment [Aut omated message] The = Basophils #) system which generated this result tra nsmitted reference range : <=0.2. The reference r mitra was not used to int erpret this result as normal/abnormal . [facility] CenterBcmvnfwLHIOHGNRBR8929-69-30 18:46:00 Test Item Value Reference Range Interpretation Comments PT (test code = PT) 11.2 s 12.0-14.7 [facility] CenterOkcxndmOZTVIOBJZX1585-43-06 18:46:00 Test Item Value Reference Range Interpretation Comments INR (test code = INR) 0.82 0.85-1.17 [facility] CenterLmaleqoXYGZXMOVZB8080-43-36 18:46:00 Test Item Value Reference Range Interpretation Comments PTT (test code = PTT) 28.6 s 22.9-35.8 [facility] CenterRnevjhaEUUOUFYIXH0335-90-89 18:46:00 Test Item Value Reference Range Interpretation Comments MPV (test code = MPV) 8.1 7.4-10.4 [facility] CenterMaaquucDJROZEWWFT6773-57-57 18:46:00 Test Item Value Reference Range Interpretation Comments Platelet (test code = Platelet) 301 133-450 [facility] CenterGygkkebGJDYGRKEGQ6334-99-69 18:46:00 Test Item Value Reference Range Interpretation Comments RDW (test code = RDW) 14.5 11.5-14.5 [facility] CenterXnfktyzIVFXXUVHDD5304-73-73 18:46:00 Test Item Value Reference Range Interpretation Comments RBC (test code = RBC) 4.84 4.70-6.10 [facility]UDPMDL3761-82-05 18:46:00 Test Item Value Reference Range Interpretation Comments Hgb (test code = Hgb) 14.4 14.0-18.0 [facility] CenterIljpfkiBREPYJHLAX7799-14-60 18:46:00 Test Item Value Reference Range Interpretation Comments WBC (test code = WBC) 5.2 3.7-10.4 [facility] CenterYtosyfjDNLTIAWSTH9351-33-82 18:46:00 Test Item Value Reference Range Interpretation Comments MCH (test code = MCH) 29.8 pg 27.0-31.0 [facility] CenterMhsuzldMICNTULKAT3505-57-96 18:46:00 Test Item Value Reference Range Interpretation Comments MCV (test code = MCV) 92.0 80.0-94.0 [facility] CenterDadxqseOAUINQIHLJ9885-35-26 18:46:00 Test Item Value Reference Range Interpretation Comments Hct (test code = Hct) 44.5 42.0-54.0 [facility] CenterGrpnrdbYRSKLVUQPO1924-50-23 18:46:00 Test Item Value Reference Range Interpretation Comments MCHC (test code = MCHC) 32.4 32.0-36.0 [facility]TuypchoWWIRCTUZVY0867-68-08 18:46:00 Test Item Value Reference Range Interpretation Comments [place]-Hep C Ab (test Negative *NA*(07/22/14 code = [place]-Hep C 1:46 PM) Ab) [facility] AND [id number] 18:46:00 Test Item Value Reference Range Interpretation Comments UA Urobilinogen (test code = UA <=1.0 mg/dL 0.1-1.0 Urobilinogen) [facility] AND [id number] 18:46:00 Test Item Value Reference Range Interpretation Comments UA Sq Epi (test code = UA Sq Epi) None Seen [facility] AND [id number] 18:46:00 Test Item Value Reference Range Interpretation Comments UA Leuk Est (test Negative (07/22/14 1:46 code = UA Leuk Est) PM) [facility] AND [id number] 18:46:00 Test Item Value Reference Range Interpretation Comments UA Nitrite (test code Negative (07/22/14 1:46 = UA Nitrite) PM) [facility] AND [id number] 18:46:00 Test Item Value Reference Range Interpretation Comments UA Blood (test code = Negative (07/22/14 1:46 UA Blood) PM) [facility] AND [id number] 18:46:00 Test Item Value Reference Range Interpretation Comments UA Ketones (test code = UA Negative mg/dL Ketones) [facility] AND [id number] 18:46:00 Test Item Value Reference Range Interpretation Comments UA Bili (test code = Negative *NA*(07/22/14 UA Bili) 1:46 PM) [facility] AND [id number] 18:46:00 Test Item Value Reference Range Interpretation Comments UA Bacteria (test code = UA Occasional /HPF Bacteria) [facility] AND [id number] 18:46:00 Test Item Value Reference Range Interpretation Comments UA RBC (test code = no gt See_Comment [Automa elizabeth message] The UA RBC) system which ge nerated this result transmit elizabeth reference range : <=2. The reference range was not used to interpr et this result as lukas l/abnormal. [facility] AND [id number] 18:46:00 Test Item Value Reference Range Interpretation Comments UA WBC (test code = 1 See_Comment [Automa elizabeth message] The UA WBC) system which ge nerated this result transmit elizabeth reference range : <=5. The reference range was not used to interpr et this result as lukas l/abnormal. [facility] AND [id number] 18:46:00 Test Item Value Reference Range Interpretation Comments UA Glucose (test code = UA Glucose) 30 mg/dL [facility] AND [id number] 18:46:00 Test Item Value Reference Range Interpretation Comments UA Protein (test code = UA Negative mg/dL Protein) [facility] AND [id number] 18:46:00 Test Item Value Reference Range Interpretation Comments UA pH (test code = UA pH) 6.5 5.0-8.0 [facility] [id number] 18:46:00 Test Item Value Reference Range Interpretation Comments UA Turbidity (test code = Clear (07/22/14 1:46 UA Turbidity) PM) [facility] AND [id number] 18:46:00 Test Item Value Reference Range Interpretation Comments UA Spec Grav (test code = UA Spec Grav) 1.[address] [facility] AND [id number] 18:46:00 Test Item Value Reference Range Interpretation Comments UA Color (test code = Light Yellow UA Color) *NA*(07/22/14 1:46 PM) [facility] [id number] 18:46:00 Test Item Value Reference Range Interpretation Comments Magnesium Lvl (test code = Magnesium 1.8 1.8-2.4 Lvl) [facility] CenterRllihztUVNKVEZJYKBV1850-41-74 18:46:00 Test Item Value Reference Range Interpretation Comments AGAP (test code = AGAP) 13.2 10.0-20.0 [facility] CenterKwlymyaMHLQHBLMFDDW2534-82-81 18:46:00 Test Item Value Reference Range Interpretation Comments B/C Ratio (test code = B/C Ratio) 18 6-25 [facility] CenterOjqegxcLOMLRFSUIILI7582-18-86 18:46:00 Test Item Value Reference Range Interpretation Comments A/G Ratio (test code = A/G Ratio) 1.1 0.7-1.6 [facility] HospitalTpyzfjoKLOYUQQVBIBQ9629-74-01 18:46:00 Test Item Value Reference Range Interpretation Comments Globulin (test code = Globulin) 3.3 2.0-4.0 [facility] CenterRpzfgrxSTWOHGAPCJJP6536-50-37 18:46:00 Test Item Value Reference Range Interpretation Comments eGFR (test code = eGFR) 99 [facility] CenterYnhcymnSSGHWKQQSPMC5536-14-37 18:46:00 Test Item Value Reference Range Interpretation Comments Calcium Lvl (test code = Calcium Lvl) 9.0 8.5-10.5 [facility] CenterFdgoyriIRLUDVCGWMPO4617-85-30 18:46:00 Test Item Value Reference Range Interpretation Comments Chloride Lvl (test code = Chloride Lvl) 106 95-109 [facility] CenterOilvxxvTVNBJZHAOZLR6351-90-82 18:46:00 Test Item Value Reference Range Interpretation Comments Creatinine Lvl (test code = Creatinine 0.9 0.5-1.4 Lvl) [facility] CenterCvlsfvyVFIKSKHDYJRI0449-91-47 18:46:00 Test Item Value Reference Range Interpretation Comments Potassium Lvl (test code = Potassium 4.2 3.5-5.1 Lvl) [facility] CenterOtlmyktSUUXBNINPNJE5677-18-19 18:46:00 Test Item Value Reference Range Interpretation Comments Sodium Lvl (test code = Sodium Lvl) 139 135-145 [facility] CenterJyjpxfjZHINUYXQYQLN3543-03-61 18:46:00 Test Item Value Reference Range Interpretation Comments CO2 (test code = CO2) 24 24-32 [facility] CenterDkrmggsRWYYEMMEDVMU8336-53-48 18:46:00 Test Item Value Reference Range Interpretation Comments BUN (test code = BUN) 16 7-22 [facility] CenterTmpzckrFWZCUVBRGVOH6871-99-19 18:46:00 Test Item Value Reference Range Interpretation Comments Glucose Lvl (test code = Glucose Lvl) 141 70-99 [facility] CenterGeiolbgTHZDMGZRMJVP6242-36-23 18:46:00 Test Item Value Reference Range Interpretation Comments Albumin Lvl (test code = Albumin Lvl) 3.6 3.5-5.0 [facility] CenterLkrowbsDXNEKSCVZSVE2569-08-62 18:46:00 Test Item Value Reference Range Interpretation Comments Alk Phos (test code = Alk Phos) 65 39-136 [facility] CenterLoxofgeNHBPNGDWYRKM2231-80-11 18:46:00 Test Item Value Reference Range Interpretation Comments Bili Total (test code = Bili Total) 0.3 0.2-1.3 [facility] CenterDellsqvMXCARLCQMFLS4471-53-76 18:46:00 Test Item Value Reference Range Interpretation Comments ALT (test code = ALT) 100 See_Comment [Auto mated message] The system which ge nerated this result transmit elizabeth reference range : <=65. The reference range was not used to interpr et this result as lukas l/abnormal. [facility] CenterGorgovwLAIOFHDXHCPT9428-64-69 18:46:00 Test Item Value Reference Range Interpretation Comments AST (test code = AST) 53 See_Comment [Auto mated message] The system which ge nerated this result transmit elizabeth reference range : <=37. The reference range was not used to interpr et this result as lukas l/abnormal. [facility] CenterLlnpftaSAWDHBJFDMFE4716-58-70 18:46:00 Test Item Value Reference Range Interpretation Comments Total Protein (test code = Total 6.9 6.4-8.4 Protein) [facility] CenterRetwgdoKRGPWUFEZS4333-35-36 18:46:00 Test Item Value Reference Range Interpretation Comments Eosinophils (test code = 4.2 See_Comment [A utomated message] The Eosinophils) system which ge nerated this result tra nsmitted reference range : <=4.0. The reference r mitra was not used to int erpret this result as normal/abnormal . [facility] CenterRkhxewtWKFKIHTGBZ7045-00-60 18:46:00 Test Item Value Reference Range Interpretation Comments Segs (test code = Segs) 56.4 45.0-75.0 [facility] CenterVsgnlfyCNBBOOHZLQ2347-85-55 18:46:00 Test Item Value Reference Range Interpretation Comments Monocytes (test code = Monocytes) 10.3 2.0-12.0 [facility] CenterRnnscytKOIGNNPWFA2121-75-49 18:46:00 Test Item Value Reference Range Interpretation Comments Lymphocytes (test code = Lymphocytes) 28.0 20.0-40.0 [facility] CenterTucjcgcNRKFKHPLYQ9838-38-29 18:46:00 Test Item Value Reference Range Interpretation Comments Monocytes # (test code 0.5 See_Comment [Aut omated message] The = Monocytes #) system which generated this result tra nsmitted reference range : <=0.8. The reference r mitra was not used to int erpret this result as normal/abnormal . [facility] CenterVycuahhYURECEQVFW7927-81-82 18:46:00 Test Item Value Reference Range Interpretation Comments Basophils (test code = 1.1 See_Comment [Aut omated message] The Basophils) system which ge nerated this result tra nsmitted reference range : <=1.0. The reference r mitra was not used to int erpret this result as normal/abnormal . [facility] CenterVgxaewhXSABJMKNPV8338-75-63 18:46:00 Test Item Value Reference Range Interpretation Comments Lymphocytes # (test code = Lymphocytes 1.5 1.0-5.5 #) [facility] CenterNypfzlaUFPYXINOOZ9894-81-24 18:46:00 Test Item Value Reference Range Interpretation Comments Segs-Bands # (test code = Segs-Bands #) 2.9 1.5-8.1 [facility] CenterWggvfwqHDHUNITKBX4158-17-86 18:46:00 Test Item Value Reference Range Interpretation Comments Eosinophils # (test code 0.2 See_Comment [A utomated message] The = Eosinophils #) system whic h generated this result tra nsmitted reference range : <=0.5. The reference r mitra was not used to int erpret this result as normal/abnormal . [facility] CenterRpyintrLQTMIWOTDB2451-00-76 18:46:00 Test Item Value Reference Range Interpretation Comments Basophils # (test code 0.1 See_Comment [Aut omated message] The = Basophils #) system which generated this result tra nsmitted reference range : <=0.2. The reference r mitra was not used to int erpret this result as normal/abnormal . [facility] CenterShpwsllHACDSGDKMX2535-08-51 18:46:00 Test Item Value Reference Range Interpretation Comments PT (test code = PT) 11.2 s 12.0-14.7 [facility] CenterGcnflwaZXOTXKCZMY6626-57-74 18:46:00 Test Item Value Reference Range Interpretation Comments INR (test code = INR) 0.82 0.85-1.17 [facility] CenterJwvdcvlTOOUFHRFMO5461-44-88 18:46:00 Test Item Value Reference Range Interpretation Comments PTT (test code = PTT) 28.6 s 22.9-35.8 [facility] CenterNoyszzvRGKLUFCABV9188-53-99 18:46:00 Test Item Value Reference Range Interpretation Comments MPV (test code = MPV) 8.1 7.4-10.4 [facility] CenterGmhqvzqXSKOVVMEUG4279-22-70 18:46:00 Test Item Value Reference Range Interpretation Comments Platelet (test code = Platelet) 301 133-450 [facility] CenterOjosiquYRNFRHYGNO7301-35-42 18:46:00 Test Item Value Reference Range Interpretation Comments RDW (test code = RDW) 14.5 11.5-14.5 [facility] CenterWomfkjeGHOEGJVUFX8505-69-88 18:46:00 Test Item Value Reference Range Interpretation Comments RBC (test code = RBC) 4.84 4.70-6.10 [facility] CenterNlzujvbVTXOBVULQC9077-50-36 18:46:00 Test Item Value Reference Range Interpretation Comments Hgb (test code = Hgb) 14.4 14.0-18.0 [facility]FyxeaqwZGCPRRZSFH5516-45-49 18:46:00 Test Item Value Reference Range Interpretation Comments WBC (test code = WBC) 5.2 3.7-10.4 [facility] CenterEhugzlsCMRAIQPQDZ2670-43-24 18:46:00 Test Item Value Reference Range Interpretation Comments MCH (test code = MCH) 29.8 pg 27.0-31.0 [facility] CenterAywrtyyQUWSCKIKET7459-81-38 18:46:00 Test Item Value Reference Range Interpretation Comments MCV (test code = MCV) 92.0 80.0-94.0 [facility] CenterDdjfqqoXUYHNZEAKE4290-39-05 18:46:00 Test Item Value Reference Range Interpretation Comments Hct (test code = Hct) 44.5 42.0-54.0 [facility] CenterAcfwkttWUYRCQMDAJ8370-48-62 18:46:00 Test Item Value Reference Range Interpretation Comments MCHC (test code = MCHC) 32.4 32.0-36.0 [facility] HospitalKwxcshsOAKXOKHWNK0003-69-88 18:46:00 Test Item Value Reference Range Interpretation Comments [place]Hep C Ab (test Negative *NA*(07/22/14 code = [place]Hep C 1:46 PM) Ab) [facility] AND [id number] 18:46:00 Test Item Value Reference Range Interpretation Comments UA Urobilinogen (test code = UA <=1.0 mg/dL 0.1-1.0 Urobilinogen) [facility] AND [id number] 18:46:00 Test Item Value Reference Range Interpretation Comments UA Sq Epi (test code = UA Sq Epi) None Seen [facility] AND [id number] 18:46:00 Test Item Value Reference Range Interpretation Comments UA Leuk Est (test Negative (07/22/14 1:46 code = UA Leuk Est) PM) [facility] AND [id number] 18:46:00 Test Item Value Reference Range Interpretation Comments UA Nitrite (test code Negative (07/22/14 1:46 = UA Nitrite) PM) [facility] AND [id number] 18:46:00 Test Item Value Reference Range Interpretation Comments UA Blood (test code = Negative (07/22/14 1:46 UA Blood) PM) [facility] AND [id number] 18:46:00 Test Item Value Reference Range Interpretation Comments UA Ketones (test code = UA Negative mg/dL Ketones) [facility] AND [id number] 18:46:00 Test Item Value Reference Range Interpretation Comments UA Bili (test code = Negative *NA*(07/22/14 UA Bili) 1:46 PM) [facility] AND [id number] 18:46:00 Test Item Value Reference Range Interpretation Comments UA Bacteria (test code = UA Occasional /HPF Bacteria) [facility] AND [id number] 18:46:00 Test Item Value Reference Range Interpretation Comments UA RBC (test code = no gt See_Comment [Automa elizabeth message] The UA RBC) system which ge nerated this result transmit elizabeth reference range : <=2. The reference range was not used to interpr et this result as lukas l/abnormal. [facility] AND [id number] 18:46:00 Test Item Value Reference Range Interpretation Comments UA WBC (test code = 1 See_Comment [Automa elizabeth message] The UA WBC) system which ge nerated this result transmit elizabeth reference range : <=5. The reference range was not used to interpr et this result as lukas l/abnormal. [facility] AND [id number] 18:46:00 Test Item Value Reference Range Interpretation Comments UA Glucose (test code = UA Glucose) 30 mg/dL [facility] AND [id number] 18:46:00 Test Item Value Reference Range Interpretation Comments UA Protein (test code = UA Negative mg/dL Protein) [facility] AND [id number] 18:46:00 Test Item Value Reference Range Interpretation Comments UA pH (test code = UA pH) 6.5 5.0-8.0 [facility] AND [id number] 18:46:00 Test Item Value Reference Range Interpretation Comments UA Turbidity (test code = Clear (07/22/14 1:46 UA Turbidity) PM) [facility] AND [id number] 18:46:00 Test Item Value Reference Range Interpretation Comments UA Spec Grav (test code = UA Spec Grav) 1.[address] [facility] AND [id number] 18:46:00 Test Item Value Reference Range Interpretation Comments UA Color (test code = Light Yellow UA Color) *NA*(07/22/14 1:46 PM) [facility] [id number] 18:46:00 Test Item Value Reference Range Interpretation Comments Magnesium Lvl (test code = Magnesium 1.8 1.8-2.4 Lvl) [facility] CenterIobgjbzABQIVMMBHZQF1547-36-04 18:46:00 Test Item Value Reference Range Interpretation Comments AGAP (test code = AGAP) 13.2 10.0-20.0 [facility] CenterNlrciwxWUWRTHWXDMXB8345-80-65 18:46:00 Test Item Value Reference Range Interpretation Comments B/C Ratio (test code = B/C Ratio) 18 6-25 [facility] CenterYwebnpmXYBTDXGKMUPK2087-98-26 18:46:00 Test Item Value Reference Range Interpretation Comments A/G Ratio (test code = A/G Ratio) 1.1 0.7-1.6 [facility] CenterAeoykzwITBINPTZMXVP7013-57-83 18:46:00 Test Item Value Reference Range Interpretation Comments Globulin (test code = Globulin) 3.3 2.0-4.0 [facility] CenterDbfdmjrRQBDEOQKMLJK8843-61-68 18:46:00 Test Item Value Reference Range Interpretation Comments eGFR (test code = eGFR) 99 [facility] CenterVcpxdziXNDPWEXQWTBY9609-56-00 18:46:00 Test Item Value Reference Range Interpretation Comments Calcium Lvl (test code = Calcium Lvl) 9.0 8.5-10.5 [facility] CenterFlkldmzKIYPBUSXWDRZ9496-12-41 18:46:00 Test Item Value Reference Range Interpretation Comments Chloride Lvl (test code = Chloride Lvl) 106 95-109 [facility] CenterKdsqfyaVMPLPUKZHCEO1495-49-36 18:46:00 Test Item Value Reference Range Interpretation Comments Creatinine Lvl (test code = Creatinine 0.9 0.5-1.4 Lvl) [facility] CenterFnosaepOSGMCSPWMMAT6647-28-09 18:46:00 Test Item Value Reference Range Interpretation Comments Potassium Lvl (test code = Potassium 4.2 3.5-5.1 Lvl) [facility] CenterEakvrnyXUAKNKWGKZNG6346-30-51 18:46:00 Test Item Value Reference Range Interpretation Comments Sodium Lvl (test code = Sodium Lvl) 139 135-145 [facility] [id number] 18:46:00 Test Item Value Reference Range Interpretation Comments CO2 (test code = CO2) 24 24-32 [facility] CenterCatvcwoOBHEJVEOBRTN1078-53-05 18:46:00 Test Item Value Reference Range Interpretation Comments BUN (test code = BUN) 16 7-22 [facility] CenterTaeunbcWGLIBLASPWUJ8507-25-45 18:46:00 Test Item Value Reference Range Interpretation Comments Glucose Lvl (test code = Glucose Lvl) 141 70-99 [facility] CenterQejlmcaZLDWGGHOAKVN6836-88-69 18:46:00 Test Item Value Reference Range Interpretation Comments Albumin Lvl (test code = Albumin Lvl) 3.6 3.5-5.0 [facility] CenterNwrlkmrRJHHJACEYXLO8905-39-85 18:46:00 Test Item Value Reference Range Interpretation Comments Alk Phos (test code = Alk Phos) 65 39-136 [facility] CenterPldehksWNEZRBGWAVNE1736-70-09 18:46:00 Test Item Value Reference Range Interpretation Comments Bili Total (test code = Bili Total) 0.3 0.2-1.3 [facility] CenterLaltyfjZMTHGQOGVWUR1693-50-93 18:46:00 Test Item Value Reference Range Interpretation Comments ALT (test code = ALT) 100 See_Comment [Auto mated message] The system which ge nerated this result transmit elizabeth reference range : <=65. The reference range was not used to interpr et this result as lukas l/abnormal. [facility] CenterEofaphwATFWKPJEYQUZ2042-58-08 18:46:00 Test Item Value Reference Range Interpretation Comments AST (test code = AST) 53 See_Comment [Auto mated message] The system which ge nerated this result transmit elizabeth reference range : <=37. The reference range was not used to interpr et this result as lukas l/abnormal. [facility] CenterXzjtjrwFMYCVPXLZEGM3495-73-58 18:46:00 Test Item Value Reference Range Interpretation Comments Total Protein (test code = Total 6.9 6.4-8.4 Protein) [facility] CenterPdlvnghKFXOAFIHBR6575-54-08 18:46:00 Test Item Value Reference Range Interpretation Comments Eosinophils (test code = 4.2 See_Comment [A utomated message] The Eosinophils) system which ge nerated this result tra nsmitted reference range : <=4.0. The reference r mitra was not used to int erpret this result as normal/abnormal . [facility] CenterHfrdhozMEHJEZAGHM4832-30-06 18:46:00 Test Item Value Reference Range Interpretation Comments Segs (test code = Segs) 56.4 45.0-75.0 [facility] CenterTdjlwhlRMOCDBNFVS1126-06-32 18:46:00 Test Item Value Reference Range Interpretation Comments Monocytes (test code = Monocytes) 10.3 2.0-12.0 [facility] CenterCtqemknKNFCDZYNPT0793-46-36 18:46:00 Test Item Value Reference Range Interpretation Comments Lymphocytes (test code = Lymphocytes) 28.0 20.0-40.0 [facility] CenterIympifdIJOAHSKJCT1532-02-30 18:46:00 Test Item Value Reference Range Interpretation Comments Monocytes # (test code 0.5 See_Comment [Aut omated message] The = Monocytes #) system which generated this result tra nsmitted reference range : <=0.8. The reference r mitra was not used to int erpret this result as normal/abnormal . [facility] CenterGddthklSKTJZBFHER9203-64-58 18:46:00 Test Item Value Reference Range Interpretation Comments Basophils (test code = 1.1 See_Comment [Aut omated message] The Basophils) system which ge nerated this result tra nsmitted reference range : <=1.0. The reference r mitra was not used to int erpret this result as normal/abnormal . [facility] CenterFglntwlKARJWURXPB7032-89-40 18:46:00 Test Item Value Reference Range Interpretation Comments Lymphocytes # (test code = Lymphocytes 1.5 1.0-5.5 #) [facility] CenterXgojuenHDLJHYPMCY6328-51-89 18:46:00 Test Item Value Reference Range Interpretation Comments Segs-Bands # (test code = Segs-Bands #) 2.9 1.5-8.1 [facility] CenterPqfedzgRYTLWSEQSF7884-83-43 18:46:00 Test Item Value Reference Range Interpretation Comments Eosinophils # (test code 0.2 See_Comment [A utomated message] The = Eosinophils #) system whic h generated this result tra nsmitted reference range : <=0.5. The reference r mitra was not used to int erpret this result as normal/abnormal . [facility] CenterYijwtxoVBWLIFULZX6851-77-42 18:46:00 Test Item Value Reference Range Interpretation Comments Basophils # (test code 0.1 See_Comment [Aut omated message] The = Basophils #) system which generated this result tra nsmitted reference range : <=0.2. The reference r mitra was not used to int erpret this result as normal/abnormal . [facility] CenterJniqhdmNVCRYYQOQP5057-07-99 18:46:00 Test Item Value Reference Range Interpretation Comments PT (test code = PT) 11.2 s 12.0-14.7 [facility] CenterPkpgfruYQIJCCUBRD4325-60-62 18:46:00 Test Item Value Reference Range Interpretation Comments INR (test code = INR) 0.82 0.85-1.17 [facility] CenterRsejfbzNDBOPECNKD7364-43-18 18:46:00 Test Item Value Reference Range Interpretation Comments PTT (test code = PTT) 28.6 s 22.9-35.8 [facility] CenterKlewhuiTDJLAVFJFR0820-86-55 18:46:00 Test Item Value Reference Range Interpretation Comments MPV (test code = MPV) 8.1 7.4-10.4 [facility] CenterAplimsoCRPKCZKIGV4890-28-90 18:46:00 Test Item Value Reference Range Interpretation Comments Platelet (test code = Platelet) 301 133-450 [facility] CenterLsqossqPPKFBKVASO3563-10-01 18:46:00 Test Item Value Reference Range Interpretation Comments RDW (test code = RDW) 14.5 11.5-14.5 [facility] CenterBsfexdeGKJRTXMKVC3482-25-64 18:46:00 Test Item Value Reference Range Interpretation Comments RBC (test code = RBC) 4.84 4.70-6.10 [facility] CenterJadagpnRLCGFVBKRF0321-18-34 18:46:00 Test Item Value Reference Range Interpretation Comments Hgb (test code = Hgb) 14.4 14.0-18.0 [facility] CenterNgthursIKNIOHHWIH9639-21-21 18:46:00 Test Item Value Reference Range Interpretation Comments WBC (test code = WBC) 5.2 3.7-10.4 [facility] CenterIvswfhhPIQOJJSTFS1097-48-51 18:46:00 Test Item Value Reference Range Interpretation Comments MCH (test code = MCH) 29.8 pg 27.0-31.0 [facility] CenterBknpmdcCQIVCXAHZG3991-57-12 18:46:00 Test Item Value Reference Range Interpretation Comments MCV (test code = MCV) 92.0 80.0-94.0 [place] [id number] 18:46:00 Test Item Value Reference Range Interpretation Comments Hct (test code = Hct) 44.5 42.0-54.0 [facility] AhlcrmfSCTDVCOIIJ4977-86-56 18:46:00 Test Item Value Reference Range Interpretation Comments MCHC (test code = MCHC) 32.4 32.0-36.0 [facility]xq[facility]koXLSNZGEFJB7893-33-35 18:46:00 Test Item Value Reference Range Interpretation Comments [place]-Hep C Ab (test Negative *NA*(07/22/14 code = [place]-Hep C 1:46 PM) Ab) [facility] AND [id number] 18:46:00 Test Item Value Reference Range Interpretation Comments UA Urobilinogen (test code = UA <=1.0 mg/dL 0.1-1.0 Urobilinogen) [facility] AND [id number] 18:46:00 Test Item Value Reference Range Interpretation Comments UA Sq Epi (test code = UA Sq Epi) None Seen [facility] AND [id number] 18:46:00 Test Item Value Reference Range Interpretation Comments UA Leuk Est (test Negative (07/22/14 1:46 code = UA Leuk Est) PM) [facility] AND [id number] 18:46:00 Test Item Value Reference Range Interpretation Comments UA Nitrite (test code Negative (07/22/14 1:46 = UA Nitrite) PM) [facility] AND [id number] 18:46:00 Test Item Value Reference Range Interpretation Comments UA Blood (test code = Negative (07/22/14 1:46 UA Blood) PM) [facility] AND [id number] 18:46:00 Test Item Value Reference Range Interpretation Comments UA Ketones (test code = UA Negative mg/dL Ketones) [facility] AND [id number] 18:46:00 Test Item Value Reference Range Interpretation Comments UA Bili (test code = Negative *NA*(07/22/14 UA Bili) 1:46 PM) [facility] AND [id number] 18:46:00 Test Item Value Reference Range Interpretation Comments UA Bacteria (test code = UA Occasional /HPF Bacteria) [facility] AND [id number] 18:46:00 Test Item Value Reference Range Interpretation Comments UA RBC (test code = no gt See_Comment [Automa elizabeth message] The UA RBC) system which ge nerated this result transmit elizabeth reference range : <=2. The reference range was not used to interpr et this result as lukas l/abnormal. [facility] [id number] 18:46:00 Test Item Value Reference Range Interpretation Comments UA WBC (test code = 1 See_Comment [Automa elizabeth message] The UA WBC) system which ge nerated this result transmit elizabeth reference range : <=5. The reference range was not used to interpr et this result as lukas l/abnormal. [facility] [id number] 18:46:00 Test Item Value Reference Range Interpretation Comments UA Glucose (test code = UA Glucose) 30 mg/dL [facility] [id number] 18:46:00 Test Item Value Reference Range Interpretation Comments UA Protein (test code = UA Negative mg/dL Protein) [facility] [id number] 18:46:00 Test Item Value Reference Range Interpretation Comments UA pH (test code = UA pH) 6.5 5.0-8.0 [facility] [id number] 18:46:00 Test Item Value Reference Range Interpretation Comments UA Turbidity (test code = Clear (07/22/14 1:46 UA Turbidity) PM) [facility] [id number] 18:46:00 Test Item Value Reference Range Interpretation Comments UA Spec Grav (test code = UA Spec Grav) 1.010 [facility] [id number] 18:46:00 Test Item Value Reference Range Interpretation Comments UA Color (test code = Light Yellow UA Color) *NA*(07/22/14 1:46 PM) [facility] [id number] 18:46:00 Test Item Value Reference Range Interpretation Comments Magnesium Lvl (test code = Magnesium 1.8 1.8-2.4 Lvl) [facility] JafoiwcZDDJZUSRGWQI1627-61-77 18:46:00 Test Item Value Reference Range Interpretation Comments AGAP (test code = AGAP) 13.2 10.0-20.0 [facility] TmwhbupGJNMLWYUZPIX2925-50-70 18:46:00 Test Item Value Reference Range Interpretation Comments B/C Ratio (test code = B/C Ratio) 18 6-25 [facility] CenterSwxnulkYGEFQKQNRQLU9726-88-57 18:46:00 Test Item Value Reference Range Interpretation Comments A/G Ratio (test code = A/G Ratio) 1.1 0.7-1.6 [facility] CenterMjrqwnzZQJUWQCZIZHR3671-32-46 18:46:00 Test Item Value Reference Range Interpretation Comments Globulin (test code = Globulin) 3.3 2.0-4.0 [facility] CenterFdgjryfZDJGGKHGEADA9638-53-41 18:46:00 Test Item Value Reference Range Interpretation Comments eGFR (test code = eGFR) 99 [facility] CenterInrelmfSGJBHLKFYEMN6886-20-40 18:46:00 Test Item Value Reference Range Interpretation Comments Calcium Lvl (test code = Calcium Lvl) 9.0 8.5-10.5 [facility] CenterDyqkmlfOINUNLVPJBSF5530-40-10 18:46:00 Test Item Value Reference Range Interpretation Comments Chloride Lvl (test code = Chloride Lvl) 106 95-109 [facility] CenterVrshgzmDXKIFKMNHOHQ2870-80-64 18:46:00 Test Item Value Reference Range Interpretation Comments Creatinine Lvl (test code = Creatinine 0.9 0.5-1.4 Lvl) [facility] CenterTrsrszmSXMTLKTIOYEV3666-51-23 18:46:00 Test Item Value Reference Range Interpretation Comments Potassium Lvl (test code = Potassium 4.2 3.5-5.1 Lvl) [facility] CenterDvyhyuwEITYHZGMZOZF7161-07-01 18:46:00 Test Item Value Reference Range Interpretation Comments Sodium Lvl (test code = Sodium Lvl) 139 135-145 [facility] CenterItvrvdcSVJTKGHNJQJR9892-62-80 18:46:00 Test Item Value Reference Range Interpretation Comments CO2 (test code = CO2) 24 24-32 [facility] CenterWorddejQYDHWCIFTBXV6937-58-81 18:46:00 Test Item Value Reference Range Interpretation Comments BUN (test code = BUN) 16 7-22 [facility] CenterWhitvsvHKWEIAHSUCER7919-60-85 18:46:00 Test Item Value Reference Range Interpretation Comments Glucose Lvl (test code = Glucose Lvl) 141 70-99 [facility] CenterWcmsuysHNXTYPUVLANC3753-11-39 18:46:00 Test Item Value Reference Range Interpretation Comments Albumin Lvl (test code = Albumin Lvl) 3.6 3.5-5.0 [facility] CenterDiupbxeNGQRLBQQBPQM2359-80-41 18:46:00 Test Item Value Reference Range Interpretation Comments Alk Phos (test code = Alk Phos) 65 39-136 [facility] CenterAtlgypoUWNXGEOYHFHK3252-17-06 18:46:00 Test Item Value Reference Range Interpretation Comments Bili Total (test code = Bili Total) 0.3 0.2-1.3 [facility] CenterCxhyvjbKVDYDBTUFAHG1645-61-56 18:46:00 Test Item Value Reference Range Interpretation Comments ALT (test code = ALT) 100 See_Comment [Auto mated message] The system which ge nerated this result transmit elizabeth reference range : <=65. The reference range was not used to interpr et this result as lukas l/abnormal. [facility] CenterZdmpaplJBDWRHIGYCYZ5245-96-79 18:46:00 Test Item Value Reference Range Interpretation Comments AST (test code = AST) 53 See_Comment [Auto mated message] The system which ge nerated this result transmit elizabeth reference range : <=37. The reference range was not used to interpr et this result as lukas l/abnormal. [facility] CenterJdpshqnBDIIIWBTBYIB2195-26-94 18:46:00 Test Item Value Reference Range Interpretation Comments Total Protein (test code = Total 6.9 6.4-8.4 Protein) [facility] CenterDuafjlyCRAOAGNKRQ8529-67-19 18:46:00 Test Item Value Reference Range Interpretation Comments Eosinophils (test code = 4.2 See_Comment [A utomated message] The Eosinophils) system which ge nerated this result tra nsmitted reference range : <=4.0. The reference r mitra was not used to int erpret this result as normal/abnormal . [facility] CenterHxpttsiTWMIHJEOBT0048-89-25 18:46:00 Test Item Value Reference Range Interpretation Comments Segs (test code = Segs) 56.4 45.0-75.0 [facility] CenterUeghvedWWSYMLNUJB5705-72-86 18:46:00 Test Item Value Reference Range Interpretation Comments Monocytes (test code = Monocytes) 10.3 2.0-12.0 [facility] CenterZcjbanuCFIPQNQDSP3674-87-89 18:46:00 Test Item Value Reference Range Interpretation Comments Lymphocytes (test code = Lymphocytes) 28.0 20.0-40.0 [facility] CenterPmpcmnbOQFNLWGSPO2870-15-65 18:46:00 Test Item Value Reference Range Interpretation Comments Monocytes # (test code 0.5 See_Comment [Aut omated message] The = Monocytes #) system which generated this result tra nsmitted reference range : <=0.8. The reference r mitra was not used to int erpret this result as normal/abnormal . [facility] CenterKoatlzgMFFXQZLGMO5992-63-80 18:46:00 Test Item Value Reference Range Interpretation Comments Basophils (test code = 1.1 See_Comment [Aut omated message] The Basophils) system which ge nerated this result tra nsmitted reference range : <=1.0. The reference r mitra was not used to int erpret this result as normal/abnormal . [facility] CenterXeshqhiQQGALQPGSH2271-66-35 18:46:00 Test Item Value Reference Range Interpretation Comments Lymphocytes # (test code = Lymphocytes 1.5 1.0-5.5 #) [facility] CenterWkvkulgRFJOIBEWZK8963-58-86 18:46:00 Test Item Value Reference Range Interpretation Comments Segs-Bands # (test code = Segs-Bands #) 2.9 1.5-8.1 [facility] CenterNfgatrkEMHQIXXFFS9172-69-62 18:46:00 Test Item Value Reference Range Interpretation Comments Eosinophils # (test code 0.2 See_Comment [A utomated message] The = Eosinophils #) system whic h generated this result tra nsmitted reference range : <=0.5. The reference r mitra was not used to int erpret this result as normal/abnormal . [facility] CenterRngastvPZEDRLHMQU7591-27-21 18:46:00 Test Item Value Reference Range Interpretation Comments Basophils # (test code 0.1 See_Comment [Aut omated message] The = Basophils #) system which generated this result tra nsmitted reference range : <=0.2. The reference r mitra was not used to int erpret this result as normal/abnormal . [facility] CenterNhsrbhiGQIHOATDJO7413-86-74 18:46:00 Test Item Value Reference Range Interpretation Comments PT (test code = PT) 11.2 s 12.0-14.7 [facility] CenterXyhducfONPBDANJNZ4412-78-28 18:46:00 Test Item Value Reference Range Interpretation Comments INR (test code = INR) 0.82 0.85-1.17 [facility] CenterBwfnpijRQBPFZUGZX5437-32-76 18:46:00 Test Item Value Reference Range Interpretation Comments PTT (test code = PTT) 28.6 s 22.9-35.8 [facility]LalzhmvTUHPIPZTBK8051-90-59 18:46:00 Test Item Value Reference Range Interpretation Comments MPV (test code = MPV) 8.1 7.4-10.4 [facility] HospitalPknhxkdCNKOXFWLIX6808-19-76 18:46:00 Test Item Value Reference Range Interpretation Comments Platelet (test code = Platelet) 301 133-450 [facility] HospitalIzhfesyUAYTXMZHLM5898-02-21 18:46:00 Test Item Value Reference Range Interpretation Comments RDW (test code = RDW) 14.5 11.5-14.5 [facility] HospitalMsgqlnaWHVRRJQQMN7201-30-49 18:46:00 Test Item Value Reference Range Interpretation Comments RBC (test code = RBC) 4.84 4.70-6.10 [facility] HospitalFygudtqVNMLUOETBJ7957-19-56 18:46:00 Test Item Value Reference Range Interpretation Comments Hgb (test code = Hgb) 14.4 14.0-18.0 [facility] HospitalTufhahpDGBBULAVDD1393-91-72 18:46:00 Test Item Value Reference Range Interpretation Comments WBC (test code = WBC) 5.2 3.7-10.4 [facility] HospitalIwazjyiNFURNDHFMS0142-96-59 18:46:00 Test Item Value Reference Range Interpretation Comments MCH (test code = MCH) 29.8 pg 27.0-31.0 [facility] HospitalOsxflqwLDRWCOZTQI7501-93-60 18:46:00 Test Item Value Reference Range Interpretation Comments MCV (test code = MCV) 92.0 80.0-94.0 [facility] HospitalDvnxobnFJXKYHQTIK3359-12-51 18:46:00 Test Item Value Reference Range Interpretation Comments Hct (test code = Hct) 44.5 42.0-54.0 [facility] HospitalQtpluukYCGVQRLVEY6247-62-70 18:46:00 Test Item Value Reference Range Interpretation Comments MCHC (test code = MCHC) 32.4 32.0-36.0 [facility]SlcvtxqDIRYFNJQUZ0259-16-61 18:46:00 Test Item Value Reference Range Interpretation Comments [place]-Hep C Ab (test Negative *NA*(07/22/14 code = [place]-Hep C 1:46 PM) Ab) [facility] AND [id number] 18:46:00 Test Item Value Reference Range Interpretation Comments UA Urobilinogen (test code = UA <=1.0 mg/dL 0.1-1.0 Urobilinogen) [facility] AND [id number] 18:46:00 Test Item Value Reference Range Interpretation Comments UA Sq Epi (test code = UA Sq Epi) None Seen [facility] AND [id number] 18:46:00 Test Item Value Reference Range Interpretation Comments UA Leuk Est (test Negative (07/22/14 1:46 code = UA Leuk Est) PM) [facility] AND [id number] 18:46:00 Test Item Value Reference Range Interpretation Comments UA Nitrite (test code Negative (07/22/14 1:46 = UA Nitrite) PM) [facility] AND [id number] 18:46:00 Test Item Value Reference Range Interpretation Comments UA Blood (test code = Negative (07/22/14 1:46 UA Blood) PM) [facility] AND [id number] 18:46:00 Test Item Value Reference Range Interpretation Comments UA Ketones (test code = UA Negative mg/dL Ketones) [facility] AND [id number] 18:46:00 Test Item Value Reference Range Interpretation Comments UA Bili (test code = Negative *NA*(07/22/14 UA Bili) 1:46 PM) [facility] AND [id number] 18:46:00 Test Item Value Reference Range Interpretation Comments UA Bacteria (test code = UA Occasional /HPF Bacteria) [facility] AND [id number] 18:46:00 Test Item Value Reference Range Interpretation Comments UA RBC (test code = no gt See_Comment [Automa elizabeth message] The UA RBC) system which ge nerated this result transmit elizabeth reference range : <=2. The reference range was not used to interpr et this result as lukas l/abnormal. [facility] AND [id number] 18:46:00 Test Item Value Reference Range Interpretation Comments UA WBC (test code = 1 See_Comment [Automa elizabeth message] The UA WBC) system which ge nerated this result transmit elizabeth reference range : <=5. The reference range was not used to interpr et this result as lukas l/abnormal. [facility] AND [id number] 18:46:00 Test Item Value Reference Range Interpretation Comments UA Glucose (test code = UA Glucose) 30 mg/dL [facility] AND [id number] 18:46:00 Test Item Value Reference Range Interpretation Comments UA Protein (test code = UA Negative mg/dL Protein) [facility] AND [id number] 18:46:00 Test Item Value Reference Range Interpretation Comments UA pH (test code = UA pH) 6.5 5.0-8.0 [facility] AND [id number] 18:46:00 Test Item Value Reference Range Interpretation Comments UA Turbidity (test code = Clear (07/22/14 1:46 UA Turbidity) PM) [facility] AND [id number] 18:46:00 Test Item Value Reference Range Interpretation Comments UA Spec Grav (test code = UA Spec Grav) 1.[address] [facility] AND [id number] 18:46:00 Test Item Value Reference Range Interpretation Comments UA Color (test code = Light Yellow UA Color) *NA*(07/22/14 1:46 PM) [facility] [id number] 18:46:00 Test Item Value Reference Range Interpretation Comments Magnesium Lvl (test code = Magnesium 1.8 1.8-2.4 Lvl) [facility] CenterOvzcgfsPJBTSLLLZSPN3649-21-14 18:46:00 Test Item Value Reference Range Interpretation Comments AGAP (test code = AGAP) 13.2 10.0-20.0 [facility] CenterEocyzluFEUVVGGILWBW6234-12-98 18:46:00 Test Item Value Reference Range Interpretation Comments B/C Ratio (test code = B/C Ratio) 18 6-25 [facility] [id number] 18:46:00 Test Item Value Reference Range Interpretation Comments Magnesium Lvl (test code = Magnesium 1.8 1.8-2.4 Lvl) [facility] CenterCioqwqsWOVEKWZLZUIG4563-13-56 18:46:00 Test Item Value Reference Range Interpretation Comments A/G Ratio (test code = A/G Ratio) 1.1 0.7-1.6 [facility] CenterOralhxvFKGRSDLYVWJU7631-83-89 18:46:00 Test Item Value Reference Range Interpretation Comments AGAP (test code = AGAP) 13.2 10.0-20.0 [facility] CenterZlrqlxjPIPGRXIHBEBS7341-30-50 18:46:00 Test Item Value Reference Range Interpretation Comments Globulin (test code = Globulin) 3.3 2.0-4.0 [facility] CenterTbrzcasVZEBMIJWCASL4605-26-70 18:46:00 Test Item Value Reference Range Interpretation Comments B/C Ratio (test code = B/C Ratio) 18 6-25 [facility] CenterKuuzslaSWCHHHWOVDLQ9998-97-31 18:46:00 Test Item Value Reference Range Interpretation Comments eGFR (test code = eGFR) 99 [facility] C[id number] 18:46:00 Test Item Value Reference Range Interpretation Comments A/G Ratio (test code = A/G Ratio) 1.1 0.7-1.6 [facility] CenterBumnlalTZSAPOVOIGWH0276-13-16 18:46:00 Test Item Value Reference Range Interpretation Comments Calcium Lvl (test code = Calcium Lvl) 9.0 8.5-10.5 [facility] CenterVviztvuGERKDZIYPNRJ1090-94-92 18:46:00 Test Item Value Reference Range Interpretation Comments Globulin (test code = Globulin) 3.3 2.0-4.0 [facility] CenterXqdmzkkOJGRPMLPXFQM0364-49-14 18:46:00 Test Item Value Reference Range Interpretation Comments Chloride Lvl (test code = Chloride Lvl) 106 95-109 [facility] CenterYfzeqxlGZTYWKMCEUQZ7424-92-88 18:46:00 Test Item Value Reference Range Interpretation Comments eGFR (test code = eGFR) 99 [facility] CenterPjcgnfhLZVMHUQBJEUQ3137-04-47 18:46:00 Test Item Value Reference Range Interpretation Comments Creatinine Lvl (test code = Creatinine 0.9 0.5-1.4 Lvl) [facility] CenterQmpekobBBLOLKYCKOFD7283-46-72 18:46:00 Test Item Value Reference Range Interpretation Comments Calcium Lvl (test code = Calcium Lvl) 9.0 8.5-10.5 [facility] CenterOybzhpaQPFLULNPUDRE8625-72-60 18:46:00 Test Item Value Reference Range Interpretation Comments Potassium Lvl (test code = Potassium 4.2 3.5-5.1 Lvl) [facility] CenterXgulssvQIUWCESVQEMW7679-35-88 18:46:00 Test Item Value Reference Range Interpretation Comments Chloride Lvl (test code = Chloride Lvl) 106 95-109 [facility] CenterBrogbouAWGQNMUGSDNP2615-78-58 18:46:00 Test Item Value Reference Range Interpretation Comments Sodium Lvl (test code = Sodium Lvl) 139 135-145 [facility] CenterGzbfmdpNZAAAUHKPOJI5756-58-96 18:46:00 Test Item Value Reference Range Interpretation Comments Creatinine Lvl (test code = Creatinine 0.9 0.5-1.4 Lvl) [facility] CenterGqfwcvdKDQAGENWNLMQ2256-89-17 18:46:00 Test Item Value Reference Range Interpretation Comments CO2 (test code = CO2) 24 24-32 [facility] CenterCyyvecfIBXFUCEACCRU9229-50-98 18:46:00 Test Item Value Reference Range Interpretation Comments Potassium Lvl (test code = Potassium 4.2 3.5-5.1 Lvl) [facility] CenterLcxbyckPRZMRZVJZXBU6608-42-86 18:46:00 Test Item Value Reference Range Interpretation Comments BUN (test code = BUN) 16 7- [facility] CenterUxxlbgnKKSLPSJSWZXN6376-77-19 18:46:00 Test Item Value Reference Range Interpretation Comments Sodium Lvl (test code = Sodium Lvl) 139 135-145 [facility] CenterUpubpurBGUCPUAXYAIQ8420-12-78 18:46:00 Test Item Value Reference Range Interpretation Comments Glucose Lvl (test code = Glucose Lvl) 141 70-99 [facility] CenterVncearkUBCWBRFAICRN3568-53-10 18:46:00 Test Item Value Reference Range Interpretation Comments CO2 (test code = CO2) 24 24- [facility] CenterSpisoqyPPDIDUWEVQOO6334-93-04 18:46:00 Test Item Value Reference Range Interpretation Comments Albumin Lvl (test code = Albumin Lvl) 3.6 3.5-5.0 [facility] CenterXwtiawrHVBUPMBWVAXL5683-66-58 18:46:00 Test Item Value Reference Range Interpretation Comments BUN (test code = BUN) 16 7-22 [facility] CenterLqikizeQYURHCQYFONE3821-24-52 18:46:00 Test Item Value Reference Range Interpretation Comments Alk Phos (test code = Alk Phos) 65 39-136 [facility] CenterYqqjdxcVCPXFSBMJDBY3661-57-97 18:46:00 Test Item Value Reference Range Interpretation Comments Glucose Lvl (test code = Glucose Lvl) 141 70-99 [facility] CenterXnaxuxqDDQPPZBVWUOY0581-61-85 18:46:00 Test Item Value Reference Range Interpretation Comments Bili Total (test code = Bili Total) 0.3 0.2-1.3 [facility] CenterKrzghteRNIFESUGCMFJ5730-82-63 18:46:00 Test Item Value Reference Range Interpretation Comments Albumin Lvl (test code = Albumin Lvl) 3.6 3.5-5.0 [facility] CenterBcboyezVQKHOCMOHVLM9400-34-36 18:46:00 Test Item Value Reference Range Interpretation Comments ALT (test code = ALT) 100 See_Comment [Auto mated message] The system which ge nerated this result transmit elizabeth reference range : <=65. The reference range was not used to interpr et this result as lukas l/abnormal. [facility] CenterXulskimSRJQNROXRAQV5086-49-89 18:46:00 Test Item Value Reference Range Interpretation Comments Alk Phos (test code = Alk Phos) 65 39-136 [facility] CenterVitkjqeAVIEABVMWGJR4315-33-47 18:46:00 Test Item Value Reference Range Interpretation Comments AST (test code = AST) 53 See_Comment [Auto mated message] The system which ge nerated this result transmit elizabeth reference range : <=37. The reference range was not used to interpr et this result as lukas l/abnormal. [facility] CenterNgibhanWZOVMKSTWARK9050-80-75 18:46:00 Test Item Value Reference Range Interpretation Comments Bili Total (test code = Bili Total) 0.3 0.2-1.3 [facility] CenterWgawcpuSCGQZVVTJHLE1946-73-19 18:46:00 Test Item Value Reference Range Interpretation Comments Total Protein (test code = Total 6.9 6.4-8.4 Protein) [facility] CenterOlqtfvvHRWPAWIDRDDV4660-43-47 18:46:00 Test Item Value Reference Range Interpretation Comments ALT (test code = ALT) 100 See_Comment [Auto mated message] The system which ge nerated this result transmit elizabeth reference range : <=65. The reference range was not used to interpr et this result as lukas l/abnormal. [facility] CenterAfpmxldUGHJRJPLTW9028-36-41 18:46:00 Test Item Value Reference Range Interpretation Comments Eosinophils (test code = 4.2 See_Comment [A utomated message] The Eosinophils) system which ge nerated this result tra nsmitted reference range : <=4.0. The reference r mitra was not used to int erpret this result as normal/abnormal . [facility] CenterBvfrzfuUBZVBEYDOXJX3051-89-32 18:46:00 Test Item Value Reference Range Interpretation Comments AST (test code = AST) 53 See_Comment [Auto mated message] The system which ge nerated this result transmit elizabeth reference range : <=37. The reference range was not used to interpr et this result as lukas l/abnormal. [facility] CenterGyauphtJSPKMAOAZG5859-08-32 18:46:00 Test Item Value Reference Range Interpretation Comments Segs (test code = Segs) 56.4 45.0-75.0 [facility] CenterJtychedTROYHBIBLNNF0280-43-99 18:46:00 Test Item Value Reference Range Interpretation Comments Total Protein (test code = Total 6.9 6.4-8.4 Protein) [facility] CenterIxqmnltODYRWZDBIZ4361-81-31 18:46:00 Test Item Value Reference Range Interpretation Comments Monocytes (test code = Monocytes) 10.3 2.0-12.0 [facility] CenterMelaufuIBPQCZEPXK8855-78-20 18:46:00 Test Item Value Reference Range Interpretation Comments Eosinophils (test code = 4.2 See_Comment [A utomated message] The Eosinophils) system which ge nerated this result tra nsmitted reference range : <=4.0. The reference r mitra was not used to int erpret this result as normal/abnormal . [facility] CenterJaovpnsDPZDNEHWMD7241-53-81 18:46:00 Test Item Value Reference Range Interpretation Comments Lymphocytes (test code = Lymphocytes) 28.0 20.0-40.0 [facility] CenterPwegbycODHHUFCLSR0580-33-55 18:46:00 Test Item Value Reference Range Interpretation Comments Segs (test code = Segs) 56.4 45.0-75.0 [facility] CenterMxuiazwKGXLKHAOKT4740-42-88 18:46:00 Test Item Value Reference Range Interpretation Comments Monocytes # (test code 0.5 See_Comment [Aut omated message] The = Monocytes #) system which generated this result tra nsmitted reference range : <=0.8. The reference r mitra was not used to int erpret this result as normal/abnormal . [facility] CenterVudxqqzYLDJQIGBPR5478-26-92 18:46:00 Test Item Value Reference Range Interpretation Comments Monocytes (test code = Monocytes) 10.3 2.0-12.0 [facility] CenterWsdztptKTYLCXXDYX2078-39-20 18:46:00 Test Item Value Reference Range Interpretation Comments Basophils (test code = 1.1 See_Comment [Aut omated message] The Basophils) system which ge nerated this result tra nsmitted reference range : <=1.0. The reference r mitra was not used to int erpret this result as normal/abnormal . [facility] CenterTtgklffGZNCFQYMCA1357-69-28 18:46:00 Test Item Value Reference Range Interpretation Comments Lymphocytes (test code = Lymphocytes) 28.0 20.0-40.0 [facility] CenterRhmddzzAKSNHCHPCH9116-58-42 18:46:00 Test Item Value Reference Range Interpretation Comments Lymphocytes # (test code = Lymphocytes 1.5 1.0-5.5 #) [facility] CenterIfkdnqsIMHFDEYICC1618-06-62 18:46:00 Test Item Value Reference Range Interpretation Comments Monocytes # (test code 0.5 See_Comment [Aut omated message] The = Monocytes #) system which generated this result tra nsmitted reference range : <=0.8. The reference r mitra was not used to int erpret this result as normal/abnormal . [facility] CenterXimdqvpGONABWNWNJ1915-63-52 18:46:00 Test Item Value Reference Range Interpretation Comments Segs-Bands # (test code = Segs-Bands #) 2.9 1.5-8.1 [facility] CenterNtvqqtwMIVUYLOYTU0272-96-12 18:46:00 Test Item Value Reference Range Interpretation Comments Basophils (test code = 1.1 See_Comment [Aut omated message] The Basophils) system which ge nerated this result tra nsmitted reference range : <=1.0. The reference r mitra was not used to int erpret this result as normal/abnormal . [facility] CenterKhfnutuHERBKRWHPH5474-07-61 18:46:00 Test Item Value Reference Range Interpretation Comments Eosinophils # (test code 0.2 See_Comment [A utomated message] The = Eosinophils #) system whic h generated this result tra nsmitted reference range : <=0.5. The reference r mitra was not used to int erpret this result as normal/abnormal . [facility] CenterDdywmbaEDNUKWYQRK7469-45-29 18:46:00 Test Item Value Reference Range Interpretation Comments Lymphocytes # (test code = Lymphocytes 1.5 1.0-5.5 #) [facility] CenterMzrcdrsFRDHIDRSLH5868-58-77 18:46:00 Test Item Value Reference Range Interpretation Comments Basophils # (test code 0.1 See_Comment [Aut omated message] The = Basophils #) system which generated this result tra nsmitted reference range : <=0.2. The reference r mitra was not used to int erpret this result as normal/abnormal . [facility] CenterJnhyyewLWKPEXSFWR5678-22-54 18:46:00 Test Item Value Reference Range Interpretation Comments Segs-Bands # (test code = Segs-Bands #) 2.9 1.5-8.1 [facility] CenterVmpyxpmBNAKHSEXGV2808-29-86 18:46:00 Test Item Value Reference Range Interpretation Comments PT (test code = PT) 11.2 s 12.0-14.7 [facility] CenterPxiyemtLBEDCAAXEE7838-36-41 18:46:00 Test Item Value Reference Range Interpretation Comments Eosinophils # (test code 0.2 See_Comment [A utomated message] The = Eosinophils #) system whic h generated this result tra nsmitted reference range : <=0.5. The reference r mitra was not used to int erpret this result as normal/abnormal . [facility] CenterZpijcxgKOKXRUYODN0201-35-14 18:46:00 Test Item Value Reference Range Interpretation Comments INR (test code = INR) 0.82 0.85-1.17 [facility] CenterOvhcrnpGVOMAGQXKN3830-21-29 18:46:00 Test Item Value Reference Range Interpretation Comments Basophils # (test code 0.1 See_Comment [Aut omated message] The = Basophils #) system which generated this result tra nsmitted reference range : <=0.2. The reference r mitra was not used to int erpret this result as normal/abnormal . [facility] CenterBkytqtlOXEZNBEHIQ6956-12-62 18:46:00 Test Item Value Reference Range Interpretation Comments PTT (test code = PTT) 28.6 s 22.9-35.8 [facility] CenterHlbcqwfXBSSQMLQYB0765-74-32 18:46:00 Test Item Value Reference Range Interpretation Comments PT (test code = PT) 11.2 s 12.0-14.7 [facility] CenterPiznenlIHJWFSGANJ2286-09-96 18:46:00 Test Item Value Reference Range Interpretation Comments MPV (test code = MPV) 8.1 7.4-10.4 [facility] CenterHdmduhlVQPYKBIVIB9953-58-68 18:46:00 Test Item Value Reference Range Interpretation Comments INR (test code = INR) 0.82 0.85-1.17 [facility] CenterEoajfetIMQZBVRBIU9151-90-82 18:46:00 Test Item Value Reference Range Interpretation Comments Platelet (test code = Platelet) 301 133-914 [facility] CenterFmzalqxMTMAQCFURG1339-14-39 18:46:00 Test Item Value Reference Range Interpretation Comments PTT (test code = PTT) 28.6 s 22.9-35.8 [facility] CenterAbrexojMUTWGNPWNJ1625-48-27 18:46:00 Test Item Value Reference Range Interpretation Comments RDW (test code = RDW) 14.5 11.5-14.5 [facility] CenterKbksinaYRVMZWCBLQ2262-23-78 18:46:00 Test Item Value Reference Range Interpretation Comments MPV (test code = MPV) 8.1 7.4-10.4 [facility] CenterDtwwkboTMQPDGOVKF2058-52-18 18:46:00 Test Item Value Reference Range Interpretation Comments RBC (test code = RBC) 4.84 4.70-6.10 [facility] CenterAarhoceTSMXUKBBOY9358-37-09 18:46:00 Test Item Value Reference Range Interpretation Comments Platelet (test code = Platelet) 301 133-228 [facility] CenterPerltveYEMYAIBECX7092-60-61 18:46:00 Test Item Value Reference Range Interpretation Comments Hgb (test code = Hgb) 14.4 14.0-18.0 [facility] CenterEctjoajPXNVYMRVOL5325-13-17 18:46:00 Test Item Value Reference Range Interpretation Comments RDW (test code = RDW) 14.5 11.5-14.5 [facility] CenterMcjlpreRHMNVSYIWD6206-76-05 18:46:00 Test Item Value Reference Range Interpretation Comments WBC (test code = WBC) 5.2 3.7-10.4 [facility] CenterAcoxsebIPGQKYEDDC0431-66-57 18:46:00 Test Item Value Reference Range Interpretation Comments RBC (test code = RBC) 4.84 4.70-6.10 [facility] CenterAoiebcyVQLGXEUMZY9244-70-85 18:46:00 Test Item Value Reference Range Interpretation Comments MCH (test code = MCH) 29.8 pg 27.0-31.0 [facility] CenterDpgruqjFIZMCLUGFX2291-27-95 18:46:00 Test Item Value Reference Range Interpretation Comments Hgb (test code = Hgb) 14.4 14.0-18.0 [facility]GKPSP6038[facility] 18:46:00 Test Item Value Reference Range Interpretation Comments MCV (test code = MCV) 92.0 80.0-94.0 [facility] CenterUppugrhTMCVMFCDJP1140-50-34 18:46:00 Test Item Value Reference Range Interpretation Comments WBC (test code = WBC) 5.2 3.7-10.4 [facility] CenterSalxxufDVRTMVJHIX2300-38-04 18:46:00 Test Item Value Reference Range Interpretation Comments Hct (test code = Hct) 44.5 42.0-54.0 [facility] CenterZojcjjlQTQOFBKXNQ9419-44-23 18:46:00 Test Item Value Reference Range Interpretation Comments MCH (test code = MCH) 29.8 pg 27.0-31.0 [facility] CenterPfddjgxMNGYMOGJIF3889-49-87 18:46:00 Test Item Value Reference Range Interpretation Comments MCHC (test code = MCHC) 32.4 32.0-36.0 [facility] CenterDmjnljaZVNLCVUUMS9188-37-14 18:46:00 Test Item Value Reference Range Interpretation Comments MCV (test code = MCV) 92.0 80.0-94.0 [facility]PdfzrodFBUSCMFFTA0074-80-57 18:46:00 Test Item Value Reference Range Interpretation Comments [place]-Hep C Ab (test Negative *NA*(07/22/14 code = [place]-Hep C 1:46 PM) Ab) [facility] CenterPiqakowYPPQCZPRVA5846-08-70 18:46:00 Test Item Value Reference Range Interpretation Comments Hct (test code = Hct) 44.5 42.0-54.0 [facility] AND [id number] 18:46:00 Test Item Value Reference Range Interpretation Comments UA Urobilinogen (test code = UA <=1.0 mg/dL 0.1-1.0 Urob[address]) [facility] CenterNdyuguoOJWOTXWKSF8426-77-83 18:46:00 Test Item Value Reference Range Interpretation Comments MCHC (test code = MCHC) 32.4 32.0-36.0 [facility] [id number] 18:46:00 Test Item Value Reference Range Interpretation Comments UA Sq Epi (test code = UA Sq Epi) None [facility]en [facility] CenterDotaciiWTUNPDWBLA8134-14-07 18:46:00 Test Item Value Reference Range Interpretation Comments [place]-Hep C Ab (test Negative *NA*(07/22/14 code = [place]-Hep C 1:46 PM) Ab) [facility] AND [id number] 18:46:00 Test Item Value Reference Range Interpretation Comments UA Leuk Est (test Negative (07/22/14 1:46 code = UA Leuk Est) PM) [facility] AND [id number] 18:46:00 Test Item Value Reference Range Interpretation Comments UA Urobilinogen (test code = UA <=1.0 mg/dL 0.1-1.0 Urobilinogen) [facility] AND [id number] 18:46:00 Test Item Value Reference Range Interpretation Comments UA Nitrite (test code Negative (07/22/14 1:46 = UA Nitrite) PM) [facility] AND [id number] 18:46:00 Test Item Value Reference Range Interpretation Comments UA Sq Epi (test code = UA Sq Epi) None Seen [facility] AND [id number] 18:46:00 Test Item Value Reference Range Interpretation Comments UA Blood (test code = Negative (07/22/14 1:46 UA Blood) PM) [facility] AND [id number] 18:46:00 Test Item Value Reference Range Interpretation Comments UA Leuk Est (test Negative (07/22/14 1:46 code = UA Leuk Est) PM) [facility] AND [id number] 18:46:00 Test Item Value Reference Range Interpretation Comments UA Ketones (test code = UA Negative mg/dL Ketones) [facility] AND [id number] 18:46:00 Test Item Value Reference Range Interpretation Comments UA Nitrite (test code Negative (07/22/14 1:46 = UA Nitrite) PM) [facility] AND [id number] 18:46:00 Test Item Value Reference Range Interpretation Comments UA Bili (test code = Negative *NA*(07/22/14 UA Bili) 1:46 PM) [facility] AND [id number] 18:46:00 Test Item Value Reference Range Interpretation Comments UA Blood (test code = Negative (07/22/14 1:46 UA Blood) PM) [facility] AND [id number] 18:46:00 Test Item Value Reference Range Interpretation Comments UA Bacteria (test code = UA Occasional /HPF Bacteria) [facility] AND [id number] 18:46:00 Test Item Value Reference Range Interpretation Comments UA Ketones (test code = UA Negative mg/dL Ketones) [facility] AND [id number] 18:46:00 Test Item Value Reference Range Interpretation Comments UA RBC (test code = no gt See_Comment [Automa elizabeth message] The UA RBC) system which ge nerated this result transmit elizabeth reference range : <=2. The reference range was not used to interpr et this result as lukas l/abnormal. [facility] AND [id number] 18:46:00 Test Item Value Reference Range Interpretation Comments UA Bili (test code = Negative *NA*(07/22/14 UA Bili) 1:46 PM) [facility] AND [id number] 18:46:00 Test Item Value Reference Range Interpretation Comments UA WBC (test code = 1 See_Comment [Automa elizabeth message] The UA WBC) system which ge nerated this result transmit elizabeth reference range : <=5. The reference range was not used to interpr et this result as lukas l/abnormal. [facility] AND [id number] 18:46:00 Test Item Value Reference Range Interpretation Comments UA Bacteria (test code = UA Occasional /HPF Bacteria) [facility] AND [id number] 18:46:00 Test Item Value Reference Range Interpretation Comments UA Glucose (test code = UA Glucose) 30 mg/dL [facility] AND [id number] 18:46:00 Test Item Value Reference Range Interpretation Comments UA RBC (test code = no gt See_Comment [Automa elizabeth message] The UA RBC) system which ge nerated this result transmit elizabeth reference range : <=2. The reference range was not used to interpr et this result as lukas l/abnormal. [facility] AND [id number] 18:46:00 Test Item Value Reference Range Interpretation Comments UA Protein (test code = UA Negative mg/dL Protein) [facility] AND [id number] 18:46:00 Test Item Value Reference Range Interpretation Comments UA WBC (test code = 1 See_Comment [Automa elizabeth message] The UA WBC) system which ge nerated this result transmit elizabeth reference range : <=5. The reference range was not used to interpr et this result as lukas l/abnormal. [facility] AND [id number] 18:46:00 Test Item Value Reference Range Interpretation Comments UA pH (test code = UA pH) 6.5 5.0-8.0 [facility] [id number] 18:46:00 Test Item Value Reference Range Interpretation Comments UA Glucose (test code = UA Glucose) 30 mg/dL [facility] AND [id number] 18:46:00 Test Item Value Reference Range Interpretation Comments UA Turbidity (test code = Clear (07/22/14 1:46 UA Turbidity) PM) [facility] [id number] 18:46:00 Test Item Value Reference Range Interpretation Comments UA Protein (test code = UA Negative mg/dL Protein) [facility] AND [id number] 18:46:00 Test Item Value Reference Range Interpretation Comments UA Spec Grav (test code = UA Spec Grav) 1.[address] [facility] AND [id number] 18:46:00 Test Item Value Reference Range Interpretation Comments UA pH (test code = UA pH) 6.5 5.0-8.0 [facility] [id number] 18:46:00 Test Item Value Reference Range Interpretation Comments UA Color (test code = Light Yellow UA Color) *NA*(07/22/14 1:46 PM) [facility] AND [id number] 18:46:00 Test Item Value Reference Range Interpretation Comments UA Turbidity (test code = Clear (07/22/14 1:46 UA Turbidity) PM) [facility]annCHEM [id number] 18:46:00 Test Item Value Reference Range Interpretation Comments Magnesium Lvl (test code = Magnesium 1.8 1.8-2.4 Lvl) [facility] AND [id number] 18:46:00 Test Item Value Reference Range Interpretation Comments UA Spec Grav (test code = UA Spec Grav) 1.010 [facility] TngqfgsFNBACOPWEHAR0588-70-33 18:46:00 Test Item Value Reference Range Interpretation Comments AGAP (test code = AGAP) 13.2 10.0-20.0 [facility] AND [id number] 18:46:00 Test Item Value Reference Range Interpretation Comments UA Color (test code = Light Yellow UA Color) *NA*(07/22/14 1:46 PM) [facility]AezjttmRYXQJKCQTBGS9182-64-04 18:46:00 Test Item Value Reference Range Interpretation Comments B/C Ratio (test code = B/C Ratio) 18 6- [facility] Center[id number] 18:46:00 Test Item Value Reference Range Interpretation Comments A/G Ratio (test code = A/G Ratio) 1.1 0.7-1.6 [facility] CenterSdbeswmSTTZMQWCIBKH0366-56-30 18:46:00 Test Item Value Reference Range Interpretation Comments Globulin (test code = Globulin) 3.3 2.0-4.0 [facility] CenterKnapypvWTBUUWKSLGFF6646-61-38 18:46:00 Test Item Value Reference Range Interpretation Comments eGFR (test code = eGFR) 99 [facility]LbohsizNLBMDXHOHWOX2705-76-81 18:46:00 Test Item Value Reference Range Interpretation Comments Calcium Lvl (test code = Calcium Lvl) 9.0 8.5-10.5 [facility] CenterXwspsnxXCFMIVFWVCYX3504-51-78 18:46:00 Test Item Value Reference Range Interpretation Comments Chloride Lvl (test code = Chloride Lvl) 106 95-109 [facility] CenterKnqbhysKSVGZXXGYQHA4920-29-66 18:46:00 Test Item Value Reference Range Interpretation Comments Creatinine Lvl (test code = Creatinine 0.9 0.5-1.4 Lvl) [facility] CenterKkwvjqyQHDVSSVKLVON1685-18-74 18:46:00 Test Item Value Reference Range Interpretation Comments Potassium Lvl (test code = Potassium 4.2 3.5-5.1 Lvl) [facility] CenterKvjlhnkFDIFABLHAUUG7133-79-01 18:46:00 Test Item Value Reference Range Interpretation Comments Sodium Lvl (test code = Sodium Lvl) 139 135-145 [facility] CenterEypszyuBMICGITACBDY1884-45-60 18:46:00 Test Item Value Reference Range Interpretation Comments CO2 (test code = CO2) 24 24-32 [facility] CenterEenrabbLCGVMFHZCEYR1987-71-72 18:46:00 Test Item Value Reference Range Interpretation Comments BUN (test code = BUN) 16 7-22 [facility] CenterYdzsmmfNJHCJYSDFPWW9096-27-33 18:46:00 Test Item Value Reference Range Interpretation Comments Glucose Lvl (test code = Glucose Lvl) 141 70-99 [facility] CenterQcsqmpcLMLDSSQTHIUC5081-40-64 18:46:00 Test Item Value Reference Range Interpretation Comments Albumin Lvl (test code = Albumin Lvl) 3.6 3.5-5.0 [facility] CenterDkixaufGIJXYNRCCACZ2673-34-08 18:46:00 Test Item Value Reference Range Interpretation Comments Alk Phos (test code = Alk Phos) 65 39-136 [facility] CenterKxyyuedHVPCWGPOQHZG7062-52-04 18:46:00 Test Item Value Reference Range Interpretation Comments Bili Total (test code = Bili Total) 0.3 0.2-1.3 [facility] CenterLukzlnaRHVAUXDTHWWJ4307-75-99 18:46:00 Test Item Value Reference Range Interpretation Comments ALT (test code = ALT) 100 See_Comment [Auto mated message] The system which ge nerated this result transmit elizabeth reference range : <=65. The reference range was not used to interpr et this result as lukas l/abnormal. [facility] CenterKcloabwHGVREDAZPPKS4349-57-46 18:46:00 Test Item Value Reference Range Interpretation Comments AST (test code = AST) 53 See_Comment [Auto mated message] The system which ge nerated this result transmit elizabeth reference range : <=37. The reference range was not used to interpr et this result as lukas l/abnormal. [facility] CenterEymvrftUMTMSFJZYMAM0010-51-84 18:46:00 Test Item Value Reference Range Interpretation Comments Total Protein (test code = Total 6.9 6.4-8.4 Protein) [facility] CenterBoidtnuCOULLAXXFS8292-61-30 18:46:00 Test Item Value Reference Range Interpretation Comments Eosinophils (test code = 4.2 See_Comment [A utomated message] The Eosinophils) system which ge nerated this result tra nsmitted reference range : <=4.0. The reference r mitra was not used to int erpret this result as normal/abnormal . [facility] CenterGkhxynrIIGNIRPADE4306-87-79 18:46:00 Test Item Value Reference Range Interpretation Comments Segs (test code = Segs) 56.4 45.0-75.0 [facility] CenterEeopzzgJVGMLIZBTY2972-04-93 18:46:00 Test Item Value Reference Range Interpretation Comments Monocytes (test code = Monocytes) 10.3 2.0-12.0 [facility] CenterYumnjddWJZTXDHNIQ2366-98-95 18:46:00 Test Item Value Reference Range Interpretation Comments Lymphocytes (test code = Lymphocytes) 28.0 20.0-40.0 [facility] CenterZxvlrmnTRYUTDZKWI0286-55-29 18:46:00 Test Item Value Reference Range Interpretation Comments Monocytes # (test code 0.5 See_Comment [Aut omated message] The = Monocytes #) system which generated this result tra nsmitted reference range : <=0.8. The reference r mitra was not used to int erpret this result as normal/abnormal . [facility] CenterAnvmpkeUWKSIPHMEQ6160-16-73 18:46:00 Test Item Value Reference Range Interpretation Comments Basophils (test code = 1.1 See_Comment [Aut omated message] The Basophils) system which ge nerated this result tra nsmitted reference range : <=1.0. The reference r mitra was not used to int erpret this result as normal/abnormal . [facility] CenterAtmwczkWACLEZHNSC4095-12-41 18:46:00 Test Item Value Reference Range Interpretation Comments Lymphocytes # (test code = Lymphocytes 1.5 1.0-5.5 #) [facility] CenterNknmxyrXYZMAVGVMY6619-24-91 18:46:00 Test Item Value Reference Range Interpretation Comments Segs-Bands # (test code = Segs-Bands #) 2.9 1.5-8.1 [facility] CenterEyxeemtJZWZBJOPJY5795-74-40 18:46:00 Test Item Value Reference Range Interpretation Comments Eosinophils # (test code 0.2 See_Comment [A utomated message] The = Eosinophils #) system whic h generated this result tra nsmitted reference range : <=0.5. The reference r mitra was not used to int erpret this result as normal/abnormal . [facility] CenterVnbstnsGFMFCIQSMU1479-05-61 18:46:00 Test Item Value Reference Range Interpretation Comments Basophils # (test code 0.1 See_Comment [Aut omated message] The = Basophils #) system which generated this result tra nsmitted reference range : <=0.2. The reference r mitra was not used to int erpret this result as normal/abnormal . [facility] CenterGnjlyorZBVLAYYITV2517-36-82 18:46:00 Test Item Value Reference Range Interpretation Comments PT (test code = PT) 11.2 s 12.0-14.7 [facility] CenterBmcpilnEBLTVANLBJ8316-15-94 18:46:00 Test Item Value Reference Range Interpretation Comments INR (test code = INR) 0.82 0.85-1.17 [facility] CenterKqrangcGRUYHYYQMO0940-73-69 18:46:00 Test Item Value Reference Range Interpretation Comments PTT (test code = PTT) 28.6 s 22.9-35.8 [facility] CenterAldydmxSWGDANXNJP5406-51-49 18:46:00 Test Item Value Reference Range Interpretation Comments MPV (test code = MPV) 8.1 7.4-10.4 [facility] CenterKnksalbYGWDSGVEAQ7827-20-10 18:46:00 Test Item Value Reference Range Interpretation Comments Platelet (test code = Platelet) 301 526-450 [facility] CenterFzdezuhLFBMMWTTJU2683-00-26 18:46:00 Test Item Value Reference Range Interpretation Comments RDW (test code = RDW) 14.5 11.5-14.5 [facility] CenterEaopiczVWHBEVNXBC6870-78-33 18:46:00 Test Item Value Reference Range Interpretation Comments RBC (test code = RBC) 4.84 4.70-6.10 [facility] CenterQufojchXLXDJCPZBD5179-91-69 18:46:00 Test Item Value Reference Range Interpretation Comments Hgb (test code = Hgb) 14.4 14.0-18.0 [facility] CenterQqeeoslFNMYYQVZYO3648-01-94 18:46:00 Test Item Value Reference Range Interpretation Comments WBC (test code = WBC) 5.2 3.7-10.4 [facility] CenterJwlpbhaTIVWVXKSBK1440-14-08 18:46:00 Test Item Value Reference Range Interpretation Comments MCH (test code = MCH) 29.8 pg 27.0-31.0 [facility] CenterVktojhcDOMOGTBYQV3188-87-77 18:46:00 Test Item Value Reference Range Interpretation Comments MCV (test code = MCV) 92.0 80.0-94.0 [facility] CenterOqvvflzVZCECRKXDV1553-49-87 18:46:00 Test Item Value Reference Range Interpretation Comments Hct (test code = Hct) 44.5 42.0-54.0 [facility] CenterKqvgadfNRLASWXNBY4720-83-10 18:46:00 Test Item Value Reference Range Interpretation Comments MCHC (test code = MCHC) 32.4 32.0-36.0 [facility] CkljkbwCBPGIXIOGI8991-87-86 18:46:00 Test Item Value Reference Range Interpretation Comments [place]-Hep C Ab (test Negative *NA*(07/22/14 code = [place]-Hep C 1:46 PM) Ab) [facility] [id number] 18:46:00 Test Item Value Reference Range Interpretation Comments UA Urobilinogen (test code = UA <=1.0 mg/dL 0.1-1.0 Urobilinogen) [facility] AND [id number] 18:46:00 Test Item Value Reference Range Interpretation Comments UA Sq Epi (test code = UA Sq Epi) None Seen [facility] AND [id number] 18:46:00 Test Item Value Reference Range Interpretation Comments UA Leuk Est (test Negative (07/22/14 1:46 code = UA Leuk Est) PM) [facility] AND [id number] 18:46:00 Test Item Value Reference Range Interpretation Comments UA Nitrite (test code Negative (07/22/14 1:46 = UA Nitrite) PM) [facility] AND [id number] 18:46:00 Test Item Value Reference Range Interpretation Comments UA Blood (test code = Negative (07/22/14 1:46 UA Blood) PM) [facility] AND [id number] 18:46:00 Test Item Value Reference Range Interpretation Comments UA Ketones (test code = UA Negative mg/dL Ketones) [facility] AND [id number] 18:46:00 Test Item Value Reference Range Interpretation Comments UA Bili (test code = Negative *NA*(07/22/14 UA Bili) 1:46 PM) [facility] AND [id number] 18:46:00 Test Item Value Reference Range Interpretation Comments UA Bacteria (test code = UA Occasional /HPF Bacteria) [facility] AND [id number] 18:46:00 Test Item Value Reference Range Interpretation Comments UA RBC (test code = no gt See_Comment [Automa elizabeth message] The UA RBC) system which ge nerated this result transmit elizabeth reference range : <=2. The reference range was not used to interpr et this result as lukas l/abnormal. [facility] AND [id number] 18:46:00 Test Item Value Reference Range Interpretation Comments UA WBC (test code = 1 See_Comment [Automa elizabeth message] The UA WBC) system which ge nerated this result transmit elizabeth reference range : <=5. The reference range was not used to interpr et this result as lukas l/abnormal. [facility] AND [id number] 18:46:00 Test Item Value Reference Range Interpretation Comments UA Glucose (test code = UA Glucose) 30 mg/dL [facility] AND [id number] 18:46:00 Test Item Value Reference Range Interpretation Comments UA Protein (test code = UA Negative mg/dL Protein) [facility] AND [id number] 18:46:00 Test Item Value Reference Range Interpretation Comments UA pH (test code = UA pH) 6.5 5.0-8.0 [facility] AND [id number] 18:46:00 Test Item Value Reference Range Interpretation Comments UA Turbidity (test code = Clear (07/22/14 1:46 UA Turbidity) PM) [facility] AND [id number] 18:46:00 Test Item Value Reference Range Interpretation Comments UA Spec Grav (test code = UA Spec Grav) 1.[address] [facility] AND [id number] 18:46:00 Test Item Value Reference Range Interpretation Comments UA Color (test code = Light Yellow UA Color) *NA*(07/22/14 1:46 PM) [facility] [id number] 18:46:00 Test Item Value Reference Range Interpretation Comments Magnesium Lvl (test code = Magnesium 1.8 1.8-2.4 Lvl) [facility] HospitalReiwddzUHNWFVDMQXDS0008-89-35 18:46:00 Test Item Value Reference Range Interpretation Comments AGAP (test code = AGAP) 13.2 10.0-20.0 [facility] CenterVjvnpimIFJIRDEMUAFT5937-77-95 18:46:00 Test Item Value Reference Range Interpretation Comments B/C Ratio (test code = B/C Ratio) 18 6-25 [facility] CenterFhqjpklPEKYQPHQBZNI0242-77-80 18:46:00 Test Item Value Reference Range Interpretation Comments A/G Ratio (test code = A/G Ratio) 1.1 0.7-1.6 [facility] CenterQxtrznpSGXVWRAHWIUF7985-48-76 18:46:00 Test Item Value Reference Range Interpretation Comments Globulin (test code = Globulin) 3.3 2.0-4.0 [facility] CenterYazvbzrMROEKUFSZMKK5000-41-16 18:46:00 Test Item Value Reference Range Interpretation Comments eGFR (test code = eGFR) 99 [facility] CenterXhyspjlHPOROYTLYDTF0260-47-13 18:46:00 Test Item Value Reference Range Interpretation Comments Calcium Lvl (test code = Calcium Lvl) 9.0 8.5-10.5 [facility] CenterLcaamczGGSIDUQVMCKO3324-62-25 18:46:00 Test Item Value Reference Range Interpretation Comments Chloride Lvl (test code = Chloride Lvl) 106 95-109 [facility] CenterCuqmawmKVDZZIJVIICC6327-92-16 18:46:00 Test Item Value Reference Range Interpretation Comments Creatinine Lvl (test code = Creatinine 0.9 0.5-1.4 Lvl) [facility] CenterPczpnzsZDKDESSTOJLE1681-81-23 18:46:00 Test Item Value Reference Range Interpretation Comments Potassium Lvl (test code = Potassium 4.2 3.5-5.1 Lvl) [facility] CenterTeyyypdURKNSNLDJZZI9552-06-19 18:46:00 Test Item Value Reference Range Interpretation Comments Sodium Lvl (test code = Sodium Lvl) 139 135-145 [facility] CenterRxdafyqPIGHRPEEHLLF4835-76-27 18:46:00 Test Item Value Reference Range Interpretation Comments CO2 (test code = CO2) 24 24-32 [facility] CenterOqznbomIBCUIKKSUPWN3806-92-97 18:46:00 Test Item Value Reference Range Interpretation Comments BUN (test code = BUN) 16 7-22 [facility] CenterAqowqshORIXYCERKPKA6754-39-27 18:46:00 Test Item Value Reference Range Interpretation Comments Glucose Lvl (test code = Glucose Lvl) 141 70-99 [facility] CenterZwmdazxMABQIRKIZWZF8767-16-91 18:46:00 Test Item Value Reference Range Interpretation Comments Albumin Lvl (test code = Albumin Lvl) 3.6 3.5-5.0 [facility] CenterGldsktiYTULLYNIQCDF8407-77-43 18:46:00 Test Item Value Reference Range Interpretation Comments Alk Phos (test code = Alk Phos) 65 39-136 [facility] CenterDfvvaxyLSOZDMBYKBOR7766-89-36 18:46:00 Test Item Value Reference Range Interpretation Comments Bili Total (test code = Bili Total) 0.3 0.2-1.3 [facility] CenterSpbhqktYASDWPHMFUMH8369-07-50 18:46:00 Test Item Value Reference Range Interpretation Comments ALT (test code = ALT) 100 See_Comment [Auto mated message] The system which ge nerated this result transmit elizabeth reference range : <=65. The reference range was not used to interpr et this result as ulkas l/abnormal. [facility] CenterGymfjvgBGSZTGWBZLOS7431-45-63 18:46:00 Test Item Value Reference Range Interpretation Comments AST (test code = AST) 53 See_Comment [Auto mated message] The system which ge nerated this result transmit elizabeth reference range : <=37. The reference range was not used to interpr et this result as lukas l/abnormal. [facility] CenterYkyynbyQHTTSFXIPKQZ7246-50-92 18:46:00 Test Item Value Reference Range Interpretation Comments Total Protein (test code = Total 6.9 6.4-8.4 Protein) [facility] CenterQwkyqkoMLCCJHRRSN0141-13-38 18:46:00 Test Item Value Reference Range Interpretation Comments Eosinophils (test code = 4.2 See_Comment [A utomated message] The Eosinophils) system which ge nerated this result tra nsmitted reference range : <=4.0. The reference r mitra was not used to int erpret this result as normal/abnormal . [facility] CenterNirlqlkCSXOLJYBOK1985-95-33 18:46:00 Test Item Value Reference Range Interpretation Comments Segs (test code = Segs) 56.4 45.0-75.0 [facility] CenterOqrlkodLFWXWJIDIU5863-73-18 18:46:00 Test Item Value Reference Range Interpretation Comments Monocytes (test code = Monocytes) 10.3 2.0-12.0 [facility] CenterDwkrxroIIJEEPTHOR7627-45-64 18:46:00 Test Item Value Reference Range Interpretation Comments Lymphocytes (test code = Lymphocytes) 28.0 20.0-40.0 [facility] CenterYyzejyiESSQMUSIVN7931-38-81 18:46:00 Test Item Value Reference Range Interpretation Comments Monocytes # (test code 0.5 See_Comment [Aut omated message] The = Monocytes #) system which generated this result tra nsmitted reference range : <=0.8. The reference r mitra was not used to int erpret this result as normal/abnormal . [facility] CenterPejbrycFPCHSSAKCS1771-44-83 18:46:00 Test Item Value Reference Range Interpretation Comments Basophils (test code = 1.1 See_Comment [Aut omated message] The Basophils) system which ge nerated this result tra nsmitted reference range : <=1.0. The reference r mitra was not used to int erpret this result as normal/abnormal . [facility] CenterEveabccODHPXJNLZM7254-54-02 18:46:00 Test Item Value Reference Range Interpretation Comments Lymphocytes # (test code = Lymphocytes 1.5 1.0-5.5 #) [facility] CenterVaqwctmMAOLLPEQXV3166-12-34 18:46:00 Test Item Value Reference Range Interpretation Comments Segs-Bands # (test code = Segs-Bands #) 2.9 1.5-8.1 [facility] CenterIblmvwhQXUEEQKDJK3220-97-43 18:46:00 Test Item Value Reference Range Interpretation Comments Eosinophils # (test code 0.2 See_Comment [A utomated message] The = Eosinophils #) system [facility] h generated this result tra nsmitted reference range : <=0.5. The reference r mitra was not used to int erpret this result as normal/abnormal . [facility] CenterYunjincSPCRBCCGMS9871-02-58 18:46:00 Test Item Value Reference Range Interpretation Comments Basophils # (test code 0.1 See_Comment [Aut omated message] The = Basophils #) system which generated this result tra nsmitted reference range : <=0.2. The reference r mitra was not used to int erpret this result as normal/abnormal . [facility] CenterScitjaoSAOHROMAEK6909-42-43 18:46:00 Test Item Value Reference Range Interpretation Comments PT (test code = PT) 11.2 s 12.0-14.7 [facility] CenterIxkvxgsZHQXUDNLYM9821-80-66 18:46:00 Test Item Value Reference Range Interpretation Comments INR (test code = INR) 0.82 0.85-1.17 [facility] CenterHslpdktWJWBVYNQWC4778-78-12 18:46:00 Test Item Value Reference Range Interpretation Comments PTT (test code = PTT) 28.6 s 22.9-35.8 [facility] CenterXyikbnvHUYIPYNGIS6035-20-50 18:46:00 Test Item Value Reference Range Interpretation Comments MPV (test code = MPV) 8.1 7.4-10.4 [facility] CenterKesnylpOFWYPTSSIX0156-89-42 18:46:00 Test Item Value Reference Range Interpretation Comments Platelet (test code = Platelet) 301 133-450 [facility] CenterCgakqpaVKFVAWNINJ6455-15-50 18:46:00 Test Item Value Reference Range Interpretation Comments RDW (test code = RDW) 14.5 11.5-14.5 [facility] CenterFyvmctdLGNPJVFPEC2099-34-21 18:46:00 Test Item Value Reference Range Interpretation Comments RBC (test code = RBC) 4.84 4.70-6.10 [facility] CenterZnxcxkuBOFKOZXPBW3669-84-24 18:46:00 Test Item Value Reference Range Interpretation Comments Hgb (test code = Hgb) 14.4 14.0-18.0 [facility] CenterHadcdwiLCFOUWIETX1747-37-02 18:46:00 Test Item Value Reference Range Interpretation Comments WBC (test code = WBC) 5.2 3.7-10.4 [facility] CenterDgmcaymHFIPHRTYVP1640-04-48 18:46:00 Test Item Value Reference Range Interpretation Comments MCH (test code = MCH) 29.8 pg 27.0-31.0 [facility] CenterPrziggwLNSRHTJYTL9218-42-04 18:46:00 Test Item Value Reference Range Interpretation Comments MCV (test code = MCV) 92.0 80.0-94.0 [facility] CenterEhkidxqSCLLNBOOAS6977-05-85 18:46:00 Test Item Value Reference Range Interpretation Comments Hct (test code = Hct) 44.5 42.0-54.0 [facility] CenterVoeegzoNHDNZJMJHU5440-56-59 18:46:00 Test Item Value Reference Range Interpretation Comments MCHC (test code = MCHC) 32.4 32.0-36.0 [facility]FtgectuDCTLNXNKXT7742-95-86 18:46:00 Test Item Value Reference Range Interpretation Comments [place]Hep C Ab (test Negative *NA*(07/22/14 code = [place]-Hep C 1:46 PM) Ab) [facility] AND [id number] 18:46:00 Test Item Value Reference Range Interpretation Comments UA Urobilinogen (test code = UA <=1.0 mg/dL 0.1-1.0 Urobilinogen) [facility] AND [id number] 18:46:00 Test Item Value Reference Range Interpretation Comments UA Sq Epi (test code = UA Sq Epi) None Seen [facility] AND [id number] 18:46:00 Test Item Value Reference Range Interpretation Comments UA Leuk Est (test Negative (07/22/14 1:46 code = UA Leuk Est) PM) [facility] AND [id number] 18:46:00 Test Item Value Reference Range Interpretation Comments UA Nitrite (test code Negative (07/22/14 1:46 = UA Nitrite) PM) [facility] AND [id number] 18:46:00 Test Item Value Reference Range Interpretation Comments UA Blood (test code = Negative (07/22/14 1:46 UA Blood) PM) [facility] AND [id number] 18:46:00 Test Item Value Reference Range Interpretation Comments UA Ketones (test code = UA Negative mg/dL Ketones) [facility] AND [id number] 18:46:00 Test Item Value Reference Range Interpretation Comments UA Bili (test code = Negative *NA*(07/22/14 UA Bili) 1:46 PM) [facility] AND [id number] 18:46:00 Test Item Value Reference Range Interpretation Comments UA Bacteria (test code = UA Occasional /HPF Bacteria) [facility] AND [id number] 18:46:00 Test Item Value Reference Range Interpretation Comments UA RBC (test code = no gt See_Comment [Automa elizabeth message] The UA RBC) system which ge nerated this result transmit elizabeth reference range : <=2. The reference range was not used to interpr et this result as lukas l/abnormal. [facility] AND [id number] 18:46:00 Test Item Value Reference Range Interpretation Comments UA WBC (test code = 1 See_Comment [Automa elizabeth message] The UA WBC) system which ge nerated this result transmit elizabeth reference range : <=5. The reference range was not used to interpr et this result as lukas l/abnormal. [facility] AND [id number] 18:46:00 Test Item Value Reference Range Interpretation Comments UA Glucose (test code = UA Glucose) 30 mg/dL [facility] AND [id number] 18:46:00 Test Item Value Reference Range Interpretation Comments UA Protein (test code = UA Negative mg/dL Protein) [facility] AND [id number] 18:46:00 Test Item Value Reference Range Interpretation Comments UA pH (test code = UA pH) 6.5 5.0-8.0 [facility] AND [id number] 18:46:00 Test Item Value Reference Range Interpretation Comments UA Turbidity (test code = Clear (07/22/14 1:46 UA Turbidity) PM) [facility] AND [id number] 18:46:00 Test Item Value Reference Range Interpretation Comments UA Spec Grav (test code = UA Spec Grav) 1.[address] [facility] AND [id number] 18:46:00 Test Item Value Reference Range Interpretation Comments UA Color (test code = Light Yellow UA Color) *NA*(07/22/14 1:46 PM) [facility] [id number] 18:46:00 Test Item Value Reference Range Interpretation Comments Magnesium Lvl (test code = Magnesium 1.8 1.8-2.4 Lvl) [facility] CenterBwaslnoJOCPRGQHRECE9068-36-96 18:46:00 Test Item Value Reference Range Interpretation Comments AGAP (test code = AGAP) 13.2 10.0-20.0 [facility]IkbrhieWJCRBTQERFTX8955-07-30 18:46:00 Test Item Value Reference Range Interpretation Comments B/C Ratio (test code = B/C Ratio) 18 6-25 [facility] CenterOafwtclPITPVTKNATKB4009-46-13 18:46:00 Test Item Value Reference Range Interpretation Comments A/G Ratio (test code = A/G Ratio) 1.1 0.7-1.6 [facility] CenterUowahsrJYEXEKNIJADC7304-26-73 18:46:00 Test Item Value Reference Range Interpretation Comments Globulin (test code = Globulin) 3.3 2.0-4.0 [facility] CenterKinfrbdXBWGBSOSUYUX1740-46-74 18:46:00 Test Item Value Reference Range Interpretation Comments eGFR (test code = eGFR) 99 [facility] CenterCcehrqlUATEAXZSVMGO8684-84-07 18:46:00 Test Item Value Reference Range Interpretation Comments Calcium Lvl (test code = Calcium Lvl) 9.0 8.5-10.5 [facility] CenterQifknwuACUSDVEEHDYC5043-39-67 18:46:00 Test Item Value Reference Range Interpretation Comments Chloride Lvl (test code = Chloride Lvl) 106 95-109 [facility] CenterCluitgfFJSZFDTHNNEU6647-48-31 18:46:00 Test Item Value Reference Range Interpretation Comments Creatinine Lvl (test code = Creatinine 0.9 0.5-1.4 Lvl) [facility] CenterYscmjbpQQPASOPPKZSP6086-33-31 18:46:00 Test Item Value Reference Range Interpretation Comments Potassium Lvl (test code = Potassium 4.2 3.5-5.1 Lvl) [facility] CenterFcigyggKCNFYYYXAHQW4763-15-15 18:46:00 Test Item Value Reference Range Interpretation Comments Sodium Lvl (test code = Sodium Lvl) 139 135-145 [facility] CenterJzepgcyTRRASZVCIYMU7182-13-53 18:46:00 Test Item Value Reference Range Interpretation Comments CO2 (test code = CO2) 24 24-32 [facility] CenterNlecnyrXDQYQXERTOHG1487-61-38 18:46:00 Test Item Value Reference Range Interpretation Comments BUN (test code = BUN) 16 7-22 [facility] CenterMssykbrMGTEOPBRXTUM7740-85-31 18:46:00 Test Item Value Reference Range Interpretation Comments Glucose Lvl (test code = Glucose Lvl) 141 70-99 [facility] CenterKiywuyyOGZSLWEDUPIJ6431-94-62 18:46:00 Test Item Value Reference Range Interpretation Comments Albumin Lvl (test code = Albumin Lvl) 3.6 3.5-5.0 [facility] CenterOixyqcyGOXUPJSWCTTJ4668-18-15 18:46:00 Test Item Value Reference Range Interpretation Comments Alk Phos (test code = Alk Phos) 65 39-136 [facility] CenterThynfskDFSNZYCXDQIC1793-33-91 18:46:00 Test Item Value Reference Range Interpretation Comments Bili Total (test code = Bili Total) 0.3 0.2-1.3 [facility] CenterNouiziyWXEOXLFSYFZD6040-68-48 18:46:00 Test Item Value Reference Range Interpretation Comments ALT (test code = ALT) 100 See_Comment [Auto mated message] The system which ge nerated this result transmit elizabeth reference range : <=65. The reference range was not used to interpr et this result as lukas l/abnormal. [facility] CenterUhlgkaeUVGJZYNXCPZX0174-04-05 18:46:00 Test Item Value Reference Range Interpretation Comments AST (test code = AST) 53 See_Comment [Auto mated message] The system which ge nerated this result transmit elizabeth reference range : <=37. The reference range was not used to interpr et this result as lukas l/abnormal. [facility] HospitalXawvfefWEHTJDVTXRHS8227-26-27 18:46:00 Test Item Value Reference Range Interpretation Comments Total Protein (test code = Total 6.9 6.4-8.4 Protein) [facility] CenterHgxjtzqJGEXXWJFDU6709-37-04 18:46:00 Test Item Value Reference Range Interpretation Comments Eosinophils (test code = 4.2 See_Comment [A utomated message] The Eosinophils) system which ge nerated this result tra nsmitted reference range : <=4.0. The reference r mitra was not used to int erpret this result as normal/abnormal . [facility] CenterZmnqjljCRPZPCYVSH8367-02-47 18:46:00 Test Item Value Reference Range Interpretation Comments Segs (test code = Segs) 56.4 45.0-75.0 [facility] CenterGbogejmLZPQSBTGBI0691-85-99 18:46:00 Test Item Value Reference Range Interpretation Comments Monocytes (test code = Monocytes) 10.3 2.0-12.0 [facility] CenterStoqdymXKGVTRKPRS4512-12-44 18:46:00 Test Item Value Reference Range Interpretation Comments Lymphocytes (test code = Lymphocytes) 28.0 20.0-40.0 [facility] CenterVwexobbUTDVPKYCNB6700-02-06 18:46:00 Test Item Value Reference Range Interpretation Comments Monocytes # (test code 0.5 See_Comment [Aut omated message] The = Monocytes #) system which generated this result tra nsmitted reference range : <=0.8. The reference r mitra was not used to int erpret this result as normal/abnormal . [facility] CenterLtjorkbIOKDJSCUQB8816-40-00 18:46:00 Test Item Value Reference Range Interpretation Comments Basophils (test code = 1.1 See_Comment [Aut omated message] The Basophils) system which ge nerated this result tra nsmitted reference range : <=1.0. The reference r mitra was not used to int erpret this result as normal/abnormal . [facility] CenterTdujqehZPAVLVLKPU0358-88-72 18:46:00 Test Item Value Reference Range Interpretation Comments Lymphocytes # (test code = Lymphocytes 1.5 1.0-5.5 #) [facility] CenterGecosxvCHYMDUMWEZ0186-33-12 18:46:00 Test Item Value Reference Range Interpretation Comments Segs-Bands # (test code = Segs-Bands #) 2.9 1.5-8.1 [facility] CenterFjqfsibSPYEIAYTGT0513-64-11 18:46:00 Test Item Value Reference Range Interpretation Comments Eosinophils # (test code 0.2 See_Comment [A utomated message] The = Eosinophils #) system whic h generated this result tra nsmitted reference range : <=0.5. The reference r mitra was not used to int erpret this result as normal/abnormal . [facility] CenterStixzriUSZHGVHWHG2864-35-50 18:46:00 Test Item Value Reference Range Interpretation Comments Basophils # (test code 0.1 See_Comment [Aut omated message] The = Basophils #) system which generated this result tra nsmitted reference range : <=0.2. The reference r mitra was not used to int erpret this result as normal/abnormal . [facility] CenterBezekpdHLXMMDOGDO3303-04-06 18:46:00 Test Item Value Reference Range Interpretation Comments PT (test code = PT) 11.2 s 12.0-14.7 [facility] CenterGpmhskdYFFJRYGKEY6025-74-12 18:46:00 Test Item Value Reference Range Interpretation Comments INR (test code = INR) 0.82 0.85-1.17 [facility] CenterXjpbhcuFNBEPEIUMT2786-63-44 18:46:00 Test Item Value Reference Range Interpretation Comments PTT (test code = PTT) 28.6 s 22.9-35.8 [facility] CenterTjdtwyfXXGMIQBHAL1854-52-36 18:46:00 Test Item Value Reference Range Interpretation Comments MPV (test code = MPV) 8.1 7.4-10.4 [facility] CenterFkysvgjSRNSCHBYCG8958-28-98 18:46:00 Test Item Value Reference Range Interpretation Comments Platelet (test code = Platelet) 301 133-450 [facility] CenterAureqabLDTJZPODBP7859-47-51 18:46:00 Test Item Value Reference Range Interpretation Comments RDW (test code = RDW) 14.5 11.5-14.5 [facility] CenterEyaartuUEJNMIQTJH4457-92-94 18:46:00 Test Item Value Reference Range Interpretation Comments RBC (test code = RBC) 4.84 4.70-6.10 [facility] CenterMvohcwtRJINCFZNDF1753-05-08 18:46:00 Test Item Value Reference Range Interpretation Comments Hgb (test code = Hgb) 14.4 14.0-18.0 [facility]BclwfzbBUYLADMJOL8248-54-29 18:46:00 Test Item Value Reference Range Interpretation Comments WBC (test code = WBC) 5.2 3.7-10.4 [facility]CbnhhhsZBLZGQMJDV7949-67-13 18:46:00 Test Item Value Reference Range Interpretation Comments MCH (test code = MCH) 29.8 pg 27.0-31.0 [facility] HospitalReketwcIZEZJRNGOW3605-78-12 18:46:00 Test Item Value Reference Range Interpretation Comments MCV (test code = MCV) 92.0 80.0-94.0 [facility] HospitalLzubmnxNJTKALLKRJ4464-18-93 18:46:00 Test Item Value Reference Range Interpretation Comments Hct (test code = Hct) 44.5 42.0-54.0 [facility] HospitalFhxfwewUZXOTEJYKM8053-18-51 18:46:00 Test Item Value Reference Range Interpretation Comments MCHC (test code = MCHC) 32.4 32.0-36.0 [facility] HospitalNjqtkawHMWPOHSZWI0494-04-14 18:46:00 Test Item Value Reference Range Interpretation Comments [place]-Hep C Ab (test Negative *NA*(07/22/14 code = [place]-Hep C 1:46 PM) Ab) [facility] AND [id number] 18:46:00 Test Item Value Reference Range Interpretation Comments UA Urobilinogen (test code = UA <=1.0 mg/dL 0.1-1.0 Urobilinogen) [facility] AND [id number] 18:46:00 Test Item Value Reference Range Interpretation Comments UA Sq Epi (test code = UA Sq Epi) None Seen [facility] AND [id number] 18:46:00 Test Item Value Reference Range Interpretation Comments UA Leuk Est (test Negative (07/22/14 1:46 code = UA Leuk Est) PM) [facility] AND [id number] 18:46:00 Test Item Value Reference Range Interpretation Comments UA Nitrite (test code Negative (07/22/14 1:46 = UA Nitrite) PM) [facility] AND [id number] 18:46:00 Test Item Value Reference Range Interpretation Comments UA Blood (test code = Negative (07/22/14 1:46 UA Blood) PM) [facility] AND [id number] 18:46:00 Test Item Value Reference Range Interpretation Comments UA Ketones (test code = UA Negative mg/dL Ketones) [facility] AND [id number] 18:46:00 Test Item Value Reference Range Interpretation Comments UA Bili (test code = Negative *NA*(07/22/14 UA Bili) 1:46 PM) [facility] AND [id number] 18:46:00 Test Item Value Reference Range Interpretation Comments UA Bacteria (test code = UA Occasional /HPF Bacteria) [facility] AND [id number] 18:46:00 Test Item Value Reference Range Interpretation Comments UA RBC (test code = no gt See_Comment [Automa elizabeth message] The UA RBC) system which ge nerated this result transmit elizabeth reference range : <=2. The reference range was not used to interpr et this result as lukas l/abnormal. [facility] AND [id number] 18:46:00 Test Item Value Reference Range Interpretation Comments UA WBC (test code = 1 See_Comment [Automa elizabeth message] The UA WBC) system which ge nerated this result transmit elizabeth reference range : <=5. The reference range was not used to interpr et this result as lukas l/abnormal. [facility] AND [id number] 18:46:00 Test Item Value Reference Range Interpretation Comments UA Glucose (test code = UA Glucose) 30 mg/dL [facility] AND [id number] 18:46:00 Test Item Value Reference Range Interpretation Comments UA Protein (test code = UA Negative mg/dL Protein) [facility] AND [id number] 18:46:00 Test Item Value Reference Range Interpretation Comments UA pH (test code = UA pH) 6.5 5.0-8.0 [facility] AND [id number] 18:46:00 Test Item Value Reference Range Interpretation Comments UA Turbidity (test code = Clear (07/22/14 1:46 UA Turbidity) PM) [facility] AND [id number] 18:46:00 Test Item Value Reference Range Interpretation Comments UA Spec Grav (test code = UA Spec Grav) 1.[address] [facility] AND [id number] 18:46:00 Test Item Value Reference Range Interpretation Comments UA Color (test code = Light Yellow UA Color) *NA*(07/22/14 1:46 PM) [facility]CHE[facility] [id number] 18:46:00 Test Item Value Reference Range Interpretation Comments Magnesium Lvl (test code = Magnesium 1.8 1.8-2.4 Lvl) [facility] CenterKvkmnfkLOBSGHZVANJB3814-32-31 18:46:00 Test Item Value Reference Range Interpretation Comments AGAP (test code = AGAP) 13.2 10.0-20.0 [facility] CenterUmxzwmgTQTMNEVZIDJQ8966-62-18 18:46:00 Test Item Value Reference Range Interpretation Comments B/C Ratio (test code = B/C Ratio) 18 6-25 [facility] CenterNvnquuyKRUUGUBBXXKO9287-00-67 18:46:00 Test Item Value Reference Range Interpretation Comments A/G Ratio (test code = A/G Ratio) 1.1 0.7-1.6 [facility] CenterDnogoomEHDUDFOLRWGH4092-82-37 18:46:00 Test Item Value Reference Range Interpretation Comments Globulin (test code = Globulin) 3.3 2.0-4.0 [facility] CenterTfxndrlTGSVCWDMUHWS4908-36-14 18:46:00 Test Item Value Reference Range Interpretation Comments eGFR (test code = eGFR) 99 [facility] CenterFeowbbhOXWIKQHKWOIA5167-22-06 18:46:00 Test Item Value Reference Range Interpretation Comments Calcium Lvl (test code = Calcium Lvl) 9.0 8.5-10.5 [facility] CenterSgdkydeGAKCQVXVCSWW1590-66-34 18:46:00 Test Item Value Reference Range Interpretation Comments Chloride Lvl (test code = Chloride Lvl) 106 95-109 [facility] CenterQbeaujqHYOSHUTRZRTF6761-30-55 18:46:00 Test Item Value Reference Range Interpretation Comments Creatinine Lvl (test code = Creatinine 0.9 0.5-1.4 Lvl) [facility] CenterIxorgahWTWNEHPXXRYZ3676-76-39 18:46:00 Test Item Value Reference Range Interpretation Comments Potassium Lvl (test code = Potassium 4.2 3.5-5.1 Lvl) [facility] CenterNhpwgzdSBUXQUQDGMCO5563-56-89 18:46:00 Test Item Value Reference Range Interpretation Comments Sodium Lvl (test code = Sodium Lvl) 139 135-145 [facility] CenterIxegmjtCWTDFJULMVEZ5061-65-80 18:46:00 Test Item Value Reference Range Interpretation Comments CO2 (test code = CO2) 24 24-32 [facility] CenterPfwhqxhVQJVFFXTUANI3984-11-07 18:46:00 Test Item Value Reference Range Interpretation Comments BUN (test code = BUN) 16 7-22 [facility] CenterYjckufhOHIZKDTHFFZC2167-46-10 18:46:00 Test Item Value Reference Range Interpretation Comments Glucose Lvl (test code = Glucose Lvl) 141 70-99 [facility] CenterYdumqobLERIPRGYAXSI0133-50-36 18:46:00 Test Item Value Reference Range Interpretation Comments Albumin Lvl (test code = Albumin Lvl) 3.6 3.5-5.0 [facility] CenterTysulteTTUCUTIQEXXU1137-45-41 18:46:00 Test Item Value Reference Range Interpretation Comments Alk Phos (test code = Alk Phos) 65 39-136 [facility] CenterDctjfhyXDFOAVIKKEWO4226-28-94 18:46:00 Test Item Value Reference Range Interpretation Comments Bili Total (test code = Bili Total) 0.3 0.2-1.3 [facility] CenterRgbzuoyMAXIFTWPBAMZ9475-86-03 18:46:00 Test Item Value Reference Range Interpretation Comments ALT (test code = ALT) 100 See_Comment [Auto mated message] The system which ge nerated this result transmit elizabeth reference range : <=65. The reference range was not used to interpr et this result as lukas l/abnormal. [facility] CenterNmwhzudSJAQJAHLGHIK7881-60-91 18:46:00 Test Item Value Reference Range Interpretation Comments AST (test code = AST) 53 See_Comment [Auto mated message] The system which ge nerated this result transmit elizabeth reference range : <=37. The reference range was not used to interpr et this result as lukas l/abnormal. [facility] CenterXewwileXRJTCGXSLIRO1884-09-78 18:46:00 Test Item Value Reference Range Interpretation Comments Total Protein (test code = Total 6.9 6.4-8.4 Protein) [facility] HospitalEgeoyfoAZNWNEXMBV5167-96-51 18:46:00 Test Item Value Reference Range Interpretation Comments Eosinophils (test code = 4.2 See_Comment [A utomated message] The Eosinophils) system which ge nerated this result tra nsmitted reference range : <=4.0. The reference r mitra was not used to int erpret this result as normal/abnormal . [facility] CenterGmsubqkSOFPWXPWGU3253-37-62 18:46:00 Test Item Value Reference Range Interpretation Comments Segs (test code = Segs) 56.4 45.0-75.0 [facility] CenterKdfjmuaGEWRJAXAOO7307-00-32 18:46:00 Test Item Value Reference Range Interpretation Comments Monocytes (test code = Monocytes) 10.3 2.0-12.0 [facility] CenterMbbvkxaNLBWHITKTE0591-03-72 18:46:00 Test Item Value Reference Range Interpretation Comments Lymphocytes (test code = Lymphocytes) 28.0 20.0-40.0 [facility] CenterHnzlqmsRYDZAQWXKR7277-82-48 18:46:00 Test Item Value Reference Range Interpretation Comments Monocytes # (test code 0.5 See_Comment [Aut omated message] The = Monocytes #) system which generated this result tra nsmitted reference range : <=0.8. The reference r mitra was not used to int erpret this result as normal/abnormal . [facility] CenterCixmvauHREYVAKILA4664-26-60 18:46:00 Test Item Value Reference Range Interpretation Comments Basophils (test code = 1.1 See_Comment [Aut omated message] The Basophils) system which ge nerated this result tra nsmitted reference range : <=1.0. The reference r mitra was not used to int erpret this result as normal/abnormal . [facility] CenterGkcqhlhBQYALPWVNC1398-54-80 18:46:00 Test Item Value Reference Range Interpretation Comments Lymphocytes # (test code = Lymphocytes 1.5 1.0-5.5 #) [facility] CenterYygkedmLQCDELZTOE4132-44-84 18:46:00 Test Item Value Reference Range Interpretation Comments Segs-Bands # (test code = Segs-Bands #) 2.9 1.5-8.1 [facility] CenterOuikwkmFANZJEWHFP2474-91-07 18:46:00 Test Item Value Reference Range Interpretation Comments Eosinophils # (test code 0.2 See_Comment [A utomated message] The = Eosinophils #) system whic h generated this result tra nsmitted reference range : <=0.5. The reference r mitra was not used to int erpret this result as normal/abnormal . [facility] CenterUbdoqurVLUVJVNXAE9386-45-14 18:46:00 Test Item Value Reference Range Interpretation Comments Basophils # (test code 0.1 See_Comment [Aut omated message] The = Basophils #) system which generated this result tra nsmitted reference range : <=0.2. The reference r mitra was not used to int erpret this result as normal/abnormal . [facility] CenterYehoqtmGBXMFRJQTT5066-01-82 18:46:00 Test Item Value Reference Range Interpretation Comments PT (test code = PT) 11.2 s 12.0-14.7 [facility] CenterOtkgaaxHAAGQPHHZK0634-65-31 18:46:00 Test Item Value Reference Range Interpretation Comments INR (test code = INR) 0.82 0.85-1.17 [facility] CenterSkzfelqUXBSPPSNQP2285-56-95 18:46:00 Test Item Value Reference Range Interpretation Comments PTT (test code = PTT) 28.6 s 22.9-35.8 [facility] CenterEgljbvoHYCYNPKVKT9593-12-65 18:46:00 Test Item Value Reference Range Interpretation Comments MPV (test code = MPV) 8.1 7.4-10.4 [facility] CenterWtgbfiyMOKTMAIGTX6153-77-83 18:46:00 Test Item Value Reference Range Interpretation Comments Platelet (test code = Platelet) 301 133-450 [facility] CenterXogbgjlSRUYGEJOTH5140-65-05 18:46:00 Test Item Value Reference Range Interpretation Comments RDW (test code = RDW) 14.5 11.5-14.5 [facility] CenterXmxsvcmVIZUIYWUNA9783-56-88 18:46:00 Test Item Value Reference Range Interpretation Comments RBC (test code = RBC) 4.84 4.70-6.10 [facility] CenterCdzbvmgVJGRULYYAQ0420-90-19 18:46:00 Test Item Value Reference Range Interpretation Comments Hgb (test code = Hgb) 14.4 14.0-18.0 [facility] CenterCiisnobFTTGMOVGLF3828-84-18 18:46:00 Test Item Value Reference Range Interpretation Comments WBC (test code = WBC) 5.2 3.7-10.4 [facility] CenterQmwpcbuIDIQMPTICQ8992-58-40 18:46:00 Test Item Value Reference Range Interpretation Comments MCH (test code = MCH) 29.8 pg 27.0-31.0 [facility] CenterEtidqjiTSHIBHCZGC7982-27-85 18:46:00 Test Item Value Reference Range Interpretation Comments MCV (test code = MCV) 92.0 80.0-94.0 [facility] HospitalXpzkwdgUCGVPFJEFF3336-46-28 18:46:00 Test Item Value Reference Range Interpretation Comments Hct (test code = Hct) 44.5 42.0-54.0 [facility] HospitalWnevokgSBPWCMNJWW5527-25-24 18:46:00 Test Item Value Reference Range Interpretation Comments MCHC (test code = MCHC) 32.4 32.0-36.0 [facility] HospitalRhzqecyKIZUOQOMPE3954-12-44 18:46:00 Test Item Value Reference Range Interpretation Comments [place]Hep C Ab (test Negative *NA*(07/22/14 code = [place]-Hep C 1:46 PM) Ab) [facility] AND [id number] 18:46:00 Test Item Value Reference Range Interpretation Comments UA Urobilinogen (test code = UA <=1.0 mg/dL 0.1-1.0 Urobilinogen) [facility] AND [id number] 18:46:00 Test Item Value Reference Range Interpretation Comments UA Sq Epi (test code = UA Sq Epi) None Seen [facility] AND [id number] 18:46:00 Test Item Value Reference Range Interpretation Comments UA Leuk Est (test Negative (07/22/14 1:46 code = UA Leuk Est) PM) [facility] AND [id number] 18:46:00 Test Item Value Reference Range Interpretation Comments UA Nitrite (test code Negative (07/22/14 1:46 = UA Nitrite) PM) [facility] AND [id number] 18:46:00 Test Item Value Reference Range Interpretation Comments UA Blood (test code = Negative (07/22/14 1:46 UA Blood) PM) [facility] AND [id number] 18:46:00 Test Item Value Reference Range Interpretation Comments UA Ketones (test code = UA Negative mg/dL Ketones) [facility] AND [id number] 18:46:00 Test Item Value Reference Range Interpretation Comments UA Bili (test code = Negative *NA*(07/22/14 UA Bili) 1:46 PM) [facility] AND [id number] 18:46:00 Test Item Value Reference Range Interpretation Comments UA Bacteria (test code = UA Occasional /HPF Bacteria) [facility] AND [id number] 18:46:00 Test Item Value Reference Range Interpretation Comments UA RBC (test code = no gt See_Comment [Automa elizabeth message] The UA RBC) system which ge nerated this result transmit elizabeth reference range : <=2. The reference range was not used to interpr et this result as lukas l/abnormal. [facility] [id number] 18:46:00 Test Item Value Reference Range Interpretation Comments UA WBC (test code = 1 See_Comment [Automa elizabeth message] The UA WBC) system which ge nerated this result transmit elizabeth reference range : <=5. The reference range was not used to interpr et this result as lukas l/abnormal. [facility] [id number] 18:46:00 Test Item Value Reference Range Interpretation Comments UA Glucose (test code = UA Glucose) 30 mg/dL [facility] [id number] 18:46:00 Test Item Value Reference Range Interpretation Comments UA Protein (test code = UA Negative mg/dL Protein) [facility] [id number] 18:46:00 Test Item Value Reference Range Interpretation Comments UA pH (test code = UA pH) 6.5 5.0-8.0 [facility] [id number] 18:46:00 Test Item Value Reference Range Interpretation Comments UA Turbidity (test code = Clear (07/22/14 1:46 UA Turbidity) PM) [facility] [facility] [id number] 18:46:00 Test Item Value Reference Range Interpretation Comments UA Spec Grav (test code = UA Spec Grav) 1.010 [facility] [id number] 18:46:00 Test Item Value Reference Range Interpretation Comments UA Color (test code = Light Yellow UA Color) *NA*(07/22/14 1:46 PM) [facility] [id number] 18:46:00 Test Item Value Reference Range Interpretation Comments Magnesium Lvl (test code = Magnesium 1.8 1.8-2.4 Lvl) [facility]YcnbvsnONJIANDXFCTB8285-19-11 18:46:00 Test Item Value Reference Range Interpretation Comments AGAP (test code = AGAP) 13.2 10.0-20.0 [facility] OyfpfluEVCZPSGVSHXB0620-93-71 18:46:00 Test Item Value Reference Range Interpretation Comments B/C Ratio (test code = B/C Ratio) 18 6-25 [facility] CenterLosrhyiWYWPHYQMPSXT0882-84-38 18:46:00 Test Item Value Reference Range Interpretation Comments A/G Ratio (test code = A/G Ratio) 1.1 0.7-1.6 [facility] CenterLuwvjaxFIRKKQXXIFTE5008-41-90 18:46:00 Test Item Value Reference Range Interpretation Comments Globulin (test code = Globulin) 3.3 2.0-4.0 [facility] CenterAzbywyiGVDBJMJGWDZK0192-68-71 18:46:00 Test Item Value Reference Range Interpretation Comments eGFR (test code = eGFR) 99 [facility] CenterZwbwrkrDFGXHXXMNRSU2396-31-35 18:46:00 Test Item Value Reference Range Interpretation Comments Calcium Lvl (test code = Calcium Lvl) 9.0 8.5-10.5 [facility] CenterZivpfjcKMQBARDVCYDX1373-23-50 18:46:00 Test Item Value Reference Range Interpretation Comments Chloride Lvl (test code = Chloride Lvl) 106 95-109 [facility] CenterNgyxqsmVNMRTAJXXLOW8283-68-61 18:46:00 Test Item Value Reference Range Interpretation Comments Creatinine Lvl (test code = Creatinine 0.9 0.5-1.4 Lvl) [facility] CenterAorfzpsNCEXMXCLMFMP3270-98-43 18:46:00 Test Item Value Reference Range Interpretation Comments Potassium Lvl (test code = Potassium 4.2 3.5-5.1 Lvl) [facility] CenterBdxbwjbQLOSKDUXQIIF1765-38-89 18:46:00 Test Item Value Reference Range Interpretation Comments Sodium Lvl (test code = Sodium Lvl) 139 135-145 [facility] CenterQvapsaxZYRTHDABNONI2698-44-41 18:46:00 Test Item Value Reference Range Interpretation Comments CO2 (test code = CO2) 24 24-32 [facility] CenterTayleukWPLTMOUZUNBL0829-20-79 18:46:00 Test Item Value Reference Range Interpretation Comments BUN (test code = BUN) 16 7-22 [facility] CenterOctkeznEYQKYVSKCDAL0718-86-44 18:46:00 Test Item Value Reference Range Interpretation Comments Glucose Lvl (test code = Glucose Lvl) 141 70-99 [facility] CenterCmcsaydDETLUPDHBXNV0042-91-60 18:46:00 Test Item Value Reference Range Interpretation Comments Albumin Lvl (test code = Albumin Lvl) 3.6 3.5-5.0 [facility] CenterRewqhwkGHGXLFUXMPAW2043-52-09 18:46:00 Test Item Value Reference Range Interpretation Comments Alk Phos (test code = Alk Phos) 65 39-136 [facility] CenterBhbquuvJLLLNRLBPFDV8290-60-08 18:46:00 Test Item Value Reference Range Interpretation Comments Bili Total (test code = Bili Total) 0.3 0.2-1.3 [facility] CenterTdxnbuxCGLCRDFAKRDW8370-60-29 18:46:00 Test Item Value Reference Range Interpretation Comments ALT (test code = ALT) 100 See_Comment [Auto mated message] The system which ge nerated this result transmit elizabeth reference range : <=65. The reference range was not used to interpr et this result as lukas l/abnormal. [facility] CenterRmgvsbaVRMINWJHDSYU8881-10-92 18:46:00 Test Item Value Reference Range Interpretation Comments AST (test code = AST) 53 See_Comment [Auto mated message] The system which ge nerated this result transmit elizabeth reference range : <=37. The reference range was not used to interpr et this result as lukas l/abnormal. [facility] CenterYtxrdpvSVUYKLGJYHUK6967-24-66 18:46:00 Test Item Value Reference Range Interpretation Comments Total Protein (test code = Total 6.9 6.4-8.4 Protein) [facility] CenterWkulisoRSPQOMNQSU9993-51-83 18:46:00 Test Item Value Reference Range Interpretation Comments Eosinophils (test code = 4.2 See_Comment [A utomated message] The Eosinophils) system which ge nerated this result tra nsmitted reference range : <=4.0. The reference r mitra was not used to int erpret this result as normal/abnormal . [facility] CenterTbcybwfEONCXZMLBL8179-96-64 18:46:00 Test Item Value Reference Range Interpretation Comments Segs (test code = Segs) 56.4 45.0-75.0 [facility] CenterFdxqjoyWGBKMCUZVE6962-39-09 18:46:00 Test Item Value Reference Range Interpretation Comments Monocytes (test code = Monocytes) 10.3 2.0-12.0 [facility] CenterEswhaqmELXSNWJMPI6421-44-38 18:46:00 Test Item Value Reference Range Interpretation Comments Lymphocytes (test code = Lymphocytes) 28.0 20.0-40.0 [facility] CenterVaooadjRVSBLUEDAD4432-27-69 18:46:00 Test Item Value Reference Range Interpretation Comments Monocytes # (test code 0.5 See_Comment [Aut omated message] The = Monocytes #) system which generated this result tra nsmitted reference range : <=0.8. The reference r mitra was not used to int erpret this result as normal/abnormal . [facility] CenterAkwijzrVUHKLJTYRE4309-82-11 18:46:00 Test Item Value Reference Range Interpretation Comments Basophils (test code = 1.1 See_Comment [Aut omated message] The Basophils) system which ge nerated this result tra nsmitted reference range : <=1.0. The reference r mitra was not used to int erpret this result as normal/abnormal . [facility] CenterAclwucgGOYGMOGNRJ9415-18-62 18:46:00 Test Item Value Reference Range Interpretation Comments Lymphocytes # (test code = Lymphocytes 1.5 1.0-5.5 #) [facility] CenterQnbjjxfOAOOQWJFZZ1189-04-47 18:46:00 Test Item Value Reference Range Interpretation Comments Segs-Bands # (test code = Segs-Bands #) 2.9 1.5-8.1 [facility] CenterYkfageqWEHIEWBLLK9457-94-13 18:46:00 Test Item Value Reference Range Interpretation Comments Eosinophils # (test code 0.2 See_Comment [A utomated message] The = Eosinophils #) system whic h generated this result tra nsmitted reference range : <=0.5. The reference r mitra was not used to int erpret this result as normal/abnormal . [facility] CenterWgaqmtbNZTZHKBRRS6373-29-51 18:46:00 Test Item Value Reference Range Interpretation Comments Basophils # (test code 0.1 See_Comment [Aut omated message] The = Basophils #) system which generated this result tra nsmitted reference range : <=0.2. The reference r mitra was not used to int erpret this result as normal/abnormal . [facility] CenterWfkiechFTLMYTTPWW9525-86-37 18:46:00 Test Item Value Reference Range Interpretation Comments PT (test code = PT) 11.2 s 12.0-14.7 [facility] CenterYbdtjgmVWMOWSPVVH1130-26-94 18:46:00 Test Item Value Reference Range Interpretation Comments INR (test code = INR) 0.82 0.85-1.17 [facility] CenterXasgddlVYWZKBWUTR4155-44-64 18:46:00 Test Item Value Reference Range Interpretation Comments PTT (test code = PTT) 28.6 s 22.9-35.8 [facility] CenterWhgfqtrTBUWUSSCBZ9621-24-33 18:46:00 Test Item Value Reference Range Interpretation Comments MPV (test code = MPV) 8.1 7.4-10.4 [facility] CenterFuwwjudLCIOQEJDGH8140-48-11 18:46:00 Test Item Value Reference Range Interpretation Comments Platelet (test code = Platelet) 301 133-450 [facility] CenterFssvxxpYUFMRDHNHV8779-24-33 18:46:00 Test Item Value Reference Range Interpretation Comments RDW (test code = RDW) 14.5 11.5-14.5 [facility] CenterThrwitrDOSKLRYGXW7510-65-83 18:46:00 Test Item Value Reference Range Interpretation Comments RBC (test code = RBC) 4.84 4.70-6.10 [facility] CenterFqomjltMOIDXNHHWV7949-88-75 18:46:00 Test Item Value Reference Range Interpretation Comments Hgb (test code = Hgb) 14.4 14.0-18.0 [facility] CenterYkwjfidEAEWNYTAAY7555-28-50 18:46:00 Test Item Value Reference Range Interpretation Comments WBC (test code = WBC) 5.2 3.7-10.4 [facility] CenterJbmexpiQIDOROAJNS2851-11-76 18:46:00 Test Item Value Reference Range Interpretation Comments MCH (test code = MCH) 29.8 pg 27.0-31.0 [facility] CenterGyyjbkoGGKGGLNVDG7285-36-10 18:46:00 Test Item Value Reference Range Interpretation Comments MCV (test code = MCV) 92.0 80.0-94.0 [facility] CenterOqxxnlpIRDXCYDLQH6353-87-51 18:46:00 Test Item Value Reference Range Interpretation Comments Hct (test code = Hct) 44.5 42.0-54.0 [facility] CenterNzzdhmhPDGPIBRABB1850-29-80 18:46:00 Test Item Value Reference Range Interpretation Comments MCHC (test code = MCHC) 32.4 32.0-36.0 [facility] CenterBtbpotcIALSLSMDLZ4704-52-77 18:46:00 Test Item Value Reference Range Interpretation Comments [place]-Hep C Ab (test Negative *NA*(07/22/14 code = [place]-Hep C 1:46 PM) Ab) [facility] AND [id number] 18:46:00 Test Item Value Reference Range Interpretation Comments UA Urobilinogen (test code = UA <=1.0 mg/dL 0.1-1.0 Urobilinogen) [facility] AND [id number] 18:46:00 Test Item Value Reference Range Interpretation Comments UA Sq Epi (test code = UA Sq Epi) None Seen [facility] AND [id number] 18:46:00 Test Item Value Reference Range Interpretation Comments UA Leuk Est (test Negative (07/22/14 1:46 code = UA Leuk Est) PM) [facility] AND [id number] 18:46:00 Test Item Value Reference Range Interpretation Comments UA Nitrite (test code Negative (07/22/14 1:46 = UA Nitrite) PM) [facility] AND [id number] 18:46:00 Test Item Value Reference Range Interpretation Comments UA Blood (test code = Negative (07/22/14 1:46 UA Blood) PM) [facility] AND [id number] 18:46:00 Test Item Value Reference Range Interpretation Comments UA Ketones (test code = UA Negative mg/dL Ketones) [facility] AND [id number] 18:46:00 Test Item Value Reference Range Interpretation Comments UA Bili (test code = Negative *NA*(07/22/14 UA Bili) 1:46 PM) [facility] AND [id number] 18:46:00 Test Item Value Reference Range Interpretation Comments UA Bacteria (test code = UA Occasional /HPF Bacteria) [facility] AND [id number] 18:46:00 Test Item Value Reference Range Interpretation Comments UA RBC (test code = no gt See_Comment [Automa elizabeth message] The UA RBC) system which ge nerated this result transmit elizabeth reference range : <=2. The reference range was not used to interpr et this result as lukas l/abnormal. [facility] AND [id number] 18:46:00 Test Item Value Reference Range Interpretation Comments UA WBC (test code = 1 See_Comment [Automa elizabeth message] The UA WBC) system which ge nerated this result transmit elizabeth reference range : <=5. The reference range was not used to interpr et this result as lukas l/abnormal. [facility] AND [id number] 18:46:00 Test Item Value Reference Range Interpretation Comments UA Glucose (test code = UA Glucose) 30 mg/dL [facility] AND [id number] 18:46:00 Test Item Value Reference Range Interpretation Comments UA Protein (test code = UA Negative mg/dL Protein) [facility] AND [id number] 18:46:00 Test Item Value Reference Range Interpretation Comments UA pH (test code = UA pH) 6.5 5.0-8.0 [facility] AND [id number] 18:46:00 Test Item Value Reference Range Interpretation Comments UA Turbidity (test code = Clear (07/22/14 1:46 UA Turbidity) PM) [facility] AND [id number] 18:46:00 Test Item Value Reference Range Interpretation Comments UA Spec Grav (test code = UA Spec Grav) 1.[address] [facility] AND [id number] 18:46:00 Test Item Value Reference Range Interpretation Comments UA Color (test code = Light Yellow UA Color) *NA*(07/22/14 1:46 PM) [facility] [id number] 18:46:00 Test Item Value Reference Range Interpretation Comments Magnesium Lvl (test code = Magnesium 1.8 1.8-2.4 Lvl) [facility] CenterZzbzyikUIAHRNYPFSZM4464-35-40 18:46:00 Test Item Value Reference Range Interpretation Comments AGAP (test code = AGAP) 13.2 10.0-20.0 [facility] CenterIijwzmgAVOZLAVSTVIW3288-72-50 18:46:00 Test Item Value Reference Range Interpretation Comments B/C Ratio (test code = B/C Ratio) 18 6-25 [facility] CenterDgquvlzYBELSAWQHIXK3167-24-20 18:46:00 Test Item Value Reference Range Interpretation Comments A/G Ratio (test code = A/G Ratio) 1.1 0.7-1.6 [facility] CenterJoztdnpHHRTBHSKGELG8661-25-15 18:46:00 Test Item Value Reference Range Interpretation Comments Globulin (test code = Globulin) 3.3 2.0-4.0 [facility] CenterMpzjncvHHCPEMMROSBH6783-65-47 18:46:00 Test Item Value Reference Range Interpretation Comments eGFR (test code = eGFR) 99 [facility] CenterOddwlutEXWUGRPFVLPV2165-64-89 18:46:00 Test Item Value Reference Range Interpretation Comments Calcium Lvl (test code = Calcium Lvl) 9.0 8.5-10.5 [facility] CenterHfzkpjaXBZMYKCZUYKC6071-29-60 18:46:00 Test Item Value Reference Range Interpretation Comments Chloride Lvl (test code = Chloride Lvl) 106 95-109 [facility] CenterRfcdoosVNJLXFWBPWHH1514-03-25 18:46:00 Test Item Value Reference Range Interpretation Comments Creatinine Lvl (test code = Creatinine 0.9 0.5-1.4 Lvl) [facility] CenterKejcqbfJWQPWEWXMFNS9686-30-44 18:46:00 Test Item Value Reference Range Interpretation Comments Potassium Lvl (test code = Potassium 4.2 3.5-5.1 Lvl) [facility] CenterTeaykqrKPRHFXQYJZFE4931-28-62 18:46:00 Test Item Value Reference Range Interpretation Comments Sodium Lvl (test code = Sodium Lvl) 139 135-145 [facility] CenterQxatlxhUEEKMBXEWAHB4728-08-95 18:46:00 Test Item Value Reference Range Interpretation Comments CO2 (test code = CO2) 24 24-32 [facility] CenterCjedinxGQFAMAMILHYV8804-95-61 18:46:00 Test Item Value Reference Range Interpretation Comments BUN (test code = BUN) 16 7-22 [facility] CenterXvmtzrgHQMXVABVECNT6020-80-75 18:46:00 Test Item Value Reference Range Interpretation Comments Glucose Lvl (test code = Glucose Lvl) 141 70-99 [facility] CenterFkqvztzAOZGRUGQCZCC1340-72-94 18:46:00 Test Item Value Reference Range Interpretation Comments Albumin Lvl (test code = Albumin Lvl) 3.6 3.5-5.0 [facility] CenterStmoixfUZZZKQRCOVTR7384-66-41 18:46:00 Test Item Value Reference Range Interpretation Comments Alk Phos (test code = Alk Phos) 65 39-136 [facility] CenterKoqgognGLZRVTWJLRMT0767-27-72 18:46:00 Test Item Value Reference Range Interpretation Comments Bili Total (test code = Bili Total) 0.3 0.2-1.3 [facility] CenterRdoaozxWORFQGZSWJOJ9915-25-70 18:46:00 Test Item Value Reference Range Interpretation Comments ALT (test code = ALT) 100 See_Comment [Auto mated message] The system which ge nerated this result transmit elizabeth reference range : <=65. The reference range was not used to interpr et this result as lukas l/abnormal. [facility] CenterDuwybwdLUFYTSUPMCZN0428-62-49 18:46:00 Test Item Value Reference Range Interpretation Comments AST (test code = AST) 53 See_Comment [Auto mated message] The system which ge nerated this result transmit elizabeth reference range : <=37. The reference range was not used to interpr et this result as lukas l/abnormal. [facility] CenterBduqrodJKEWADNHMDGT3760-68-68 18:46:00 Test Item Value Reference Range Interpretation Comments Total Protein (test code = Total 6.9 6.4-8.4 Protein) [facility] CenterLcvooloCRJXHHNEDC6128-79-39 18:46:00 Test Item Value Reference Range Interpretation Comments Eosinophils (test code = 4.2 See_Comment [A utomated message] The Eosinophils) system which ge nerated this result tra nsmitted reference range : <=4.0. The reference r mitra was not used to int erpret this result as normal/abnormal . [facility] CenterDoexytrHLEVSHGIJN7097-78-51 18:46:00 Test Item Value Reference Range Interpretation Comments Segs (test code = Segs) 56.4 45.0-75.0 [facility] CenterRncuiyhFDNIRRCSVR8428-17-66 18:46:00 Test Item Value Reference Range Interpretation Comments Monocytes (test code = Monocytes) 10.3 2.0-12.0 [facility] CenterDdfmiueZTSRZMQUBN3210-92-42 18:46:00 Test Item Value Reference Range Interpretation Comments Lymphocytes (test code = Lymphocytes) 28.0 20.0-40.0 [facility] CenterIluqajzHFPRODLQXJ0786-74-69 18:46:00 Test Item Value Reference Range Interpretation Comments Monocytes # (test code 0.5 See_Comment [Aut omated message] The = Monocytes #) system which generated this result tra nsmitted reference range : <=0.8. The reference r mitra was not used to int erpret this result as normal/abnormal . [facility] CenterLtvsbkjSKTNHVGLXW0453-44-11 18:46:00 Test Item Value Reference Range Interpretation Comments Basophils (test code = 1.1 See_Comment [Aut omated message] The Basophils) system which ge nerated this result tra nsmitted reference range : <=1.0. The reference r mitra was not used to int erpret this result as normal/abnormal . [facility] CenterEcspvmmGFWPAEUSNM2142-62-36 18:46:00 Test Item Value Reference Range Interpretation Comments Lymphocytes # (test code = Lymphocytes 1.5 1.0-5.5 #) [facility] CenterPouityzTOSLPVYYHX9659-10-76 18:46:00 Test Item Value Reference Range Interpretation Comments Segs-Bands # (test code = Segs-Bands #) 2.9 1.5-8.1 [facility] CenterJyhybhnUXKDRITLPN4680-95-61 18:46:00 Test Item Value Reference Range Interpretation Comments Eosinophils # (test code 0.2 See_Comment [A utomated message] The = Eosinophils #) system whic h generated this result tra nsmitted reference range : <=0.5. The reference r mitra was not used to int erpret this result as normal/abnormal . [facility] CenterGhxnbaoDJGLMOCPLM4970-40-49 18:46:00 Test Item Value Reference Range Interpretation Comments Basophils # (test code 0.1 See_Comment [Aut omated message] The = Basophils #) system which generated this result tra nsmitted reference range : <=0.2. The reference r mitra was not used to int erpret this result as normal/abnormal . [facility] CenterEjwtlkyYERDKSVAZK1100-68-66 18:46:00 Test Item Value Reference Range Interpretation Comments PT (test code = PT) 11.2 s 12.0-14.7 [facility] CenterYppsxkwGXCKISCDVT3064-84-42 18:46:00 Test Item Value Reference Range Interpretation Comments INR (test code = INR) 0.82 0.85-1.17 [facility] CenterKioluwaSIYTOVPFYY7756-38-94 18:46:00 Test Item Value Reference Range Interpretation Comments PTT (test code = PTT) 28.6 s 22.9-35.8 [facility] CenterAyozjbdMOBDNOLNKJ5555-13-86 18:46:00 Test Item Value Reference Range Interpretation Comments MPV (test code = MPV) 8.1 7.4-10.4 [facility] CenterPsvwkvdVOTMTTBIZS3293-10-37 18:46:00 Test Item Value Reference Range Interpretation Comments Platelet (test code = Platelet) 301 133-450 [facility] CenterSzrfsbtCVXZMAOJWK6226-70-66 18:46:00 Test Item Value Reference Range Interpretation Comments RDW (test code = RDW) 14.5 11.5-14.5 [facility] HospitalDzdorwmWFOIPOYEHM9104-16-20 18:46:00 Test Item Value Reference Range Interpretation Comments RBC (test code = RBC) 4.84 4.70-6.10 [facility]vrodalKEZNEQQKTJ5973-14-53 18:46:00 Test Item Value Reference Range Interpretation Comments Hgb (test code = Hgb) 14.4 14.0-18.0 [facility] HospitalIdjiurdWLPWJIQPFY7832-15-71 18:46:00 Test Item Value Reference Range Interpretation Comments WBC (test code = WBC) 5.2 3.7-10.4 [facility] HospitalQiutjjpEQCTFPCGHP1394-63-55 18:46:00 Test Item Value Reference Range Interpretation Comments MCH (test code = MCH) 29.8 pg 27.0-31.0 [facility] HospitalFayhiknSUCEPGEYOC1447-97-97 18:46:00 Test Item Value Reference Range Interpretation Comments MCV (test code = MCV) 92.0 80.0-94.0 [facility] HospitalBfsbtspHTUDFFGVFE7255-61-68 18:46:00 Test Item Value Reference Range Interpretation Comments Hct (test code = Hct) 44.5 42.0-54.0 [facility] HospitalVcytvuuNNGSVZMYFP3955-80-58 18:46:00 Test Item Value Reference Range Interpretation Comments MCHC (test code = MCHC) 32.4 32.0-36.0 [facility] HospitalKeodrurRPWJYSYKAT8132-64-23 18:46:00 Test Item Value Reference Range Interpretation Comments [place]Hep C Ab (test Negative *NA*(07/22/14 code = [place]-Hep C 1:46 PM) Ab) [facility] AND [id number] 18:46:00 Test Item Value Reference Range Interpretation Comments UA Urobilinogen (test code = UA <=1.0 mg/dL 0.1-1.0 Urobilinogen) [facility] [id number] 18:46:00 Test Item Value Reference Range Interpretation Comments UA Sq Epi (test code = UA Sq Epi) None [facility]en [facility] [id number] 18:46:00 Test Item Value Reference Range Interpretation Comments UA Leuk Est (test Negative (07/22/14 1:46 code = UA Leuk Est) PM) [facility] AND [id number] 18:46:00 Test Item Value Reference Range Interpretation Comments UA Nitrite (test code Negative (07/22/14 1:46 = UA Nitrite) PM) [facility] AND [id number] 18:46:00 Test Item Value Reference Range Interpretation Comments UA Blood (test code = Negative (07/22/14 1:46 UA Blood) PM) [facility] AND [id number] 18:46:00 Test Item Value Reference Range Interpretation Comments UA Ketones (test code = UA Negative mg/dL Ketones) [facility] AND [id number] 18:46:00 Test Item Value Reference Range Interpretation Comments UA Bili (test code = Negative *NA*(07/22/14 UA Bili) 1:46 PM) [facility] AND [id number] 18:46:00 Test Item Value Reference Range Interpretation Comments UA Bacteria (test code = UA Occasional /HPF Bacteria) [facility] AND [id number] 18:46:00 Test Item Value Reference Range Interpretation Comments UA RBC (test code = no gt See_Comment [Automa elizabeth message] The UA RBC) system which ge nerated this result transmit elizabeth reference range : <=2. The reference range was not used to interpr et this result as lukas l/abnormal. [facility] AND [id number] 18:46:00 Test Item Value Reference Range Interpretation Comments UA WBC (test code = 1 See_Comment [Automa elizabeth message] The UA WBC) system which ge nerated this result transmit elizabeth reference range : <=5. The reference range was not used to interpr et this result as lukas l/abnormal. [facility] AND [id number] 18:46:00 Test Item Value Reference Range Interpretation Comments UA Glucose (test code = UA Glucose) 30 mg/dL [facility] AND [id number] 18:46:00 Test Item Value Reference Range Interpretation Comments UA Protein (test code = UA Negative mg/dL Protein) [facility] AND [id number] 18:46:00 Test Item Value Reference Range Interpretation Comments UA pH (test code = UA pH) 6.5 5.0-8.0 [facility] AND [id number] 18:46:00 Test Item Value Reference Range Interpretation Comments UA Turbidity (test code = Clear (07/22/14 1:46 UA Turbidity) PM) [facility] AND [id number] 18:46:00 Test Item Value Reference Range Interpretation Comments UA Spec Grav (test code = UA Spec Grav) 1.010 [facility] AND [id number] 18:46:00 Test Item Value Reference Range Interpretation Comments UA Color (test code = Light Yellow UA Color) *NA*(07/22/14 1:46 PM) [facility] CrissannCHEM [id number] 18:46:00 Test Item Value Reference Range Interpretation Comments Magnesium Lvl (test code = Magnesium 1.8 1.8-2.4 Lvl) [facility]QlmczrmZJMXXLJMCICG7609-46-97 18:46:00 Test Item Value Reference Range Interpretation Comments AGAP (test code = AGAP) 13.2 10.0-20.0 [facility] CenterWrilayzDYHOSAJAYWAF8735-52-98 18:46:00 Test Item Value Reference Range Interpretation Comments B/C Ratio (test code = B/C Ratio) 18 6-25 [facility] CenterFtyzytrZHGZPRGLNRPQ4475-43-70 18:46:00 Test Item Value Reference Range Interpretation Comments A/G Ratio (test code = A/G Ratio) 1.1 0.7-1.6 [facility] CenterMbnwmtcIRPJOXOTCRTH3676-23-79 18:46:00 Test Item Value Reference Range Interpretation Comments Globulin (test code = Globulin) 3.3 2.0-4.0 [facility] CenterXtmzqdyJKJMUVJOMWJR5673-04-47 18:46:00 Test Item Value Reference Range Interpretation Comments eGFR (test code = eGFR) 99 [facility] CenterKwfupypHMGBFMLIXFEB4665-15-39 18:46:00 Test Item Value Reference Range Interpretation Comments Calcium Lvl (test code = Calcium Lvl) 9.0 8.5-10.5 [facility] CenterTvjhetdQWHRVWCPSOCQ1565-34-12 18:46:00 Test Item Value Reference Range Interpretation Comments Chloride Lvl (test code = Chloride Lvl) 106 95-109 [facility] CenterUukihoyHIOZWXQNQRMY9146-67-17 18:46:00 Test Item Value Reference Range Interpretation Comments Creatinine Lvl (test code = Creatinine 0.9 0.5-1.4 Lvl) [facility] CenterDhwdjljXIRZAXHBCFBE5954-33-13 18:46:00 Test Item Value Reference Range Interpretation Comments Potassium Lvl (test code = Potassium 4.2 3.5-5.1 Lvl) [facility] CenterDzgboyjMFZRUWJVYIYO9182-18-34 18:46:00 Test Item Value Reference Range Interpretation Comments Sodium Lvl (test code = Sodium Lvl) 139 135-145 [facility] CenterMzfbxfgFEOGHCTMIUPK6120-86-36 18:46:00 Test Item Value Reference Range Interpretation Comments CO2 (test code = CO2) 24 24-32 [facility] CenterUngjbpeTIJDFAYAYNJO0276-56-68 18:46:00 Test Item Value Reference Range Interpretation Comments BUN (test code = BUN) 16 7-22 [facility] CenterOiazpwtUZTSKVCJVPCL0994-50-98 18:46:00 Test Item Value Reference Range Interpretation Comments Glucose Lvl (test code = Glucose Lvl) 141 70-99 [facility] CenterIckhlbfTWGDBOTHBTFC5420-68-67 18:46:00 Test Item Value Reference Range Interpretation Comments Albumin Lvl (test code = Albumin Lvl) 3.6 3.5-5.0 [facility] CenterIxrcsulPCQLWGAHUFWB0637-59-66 18:46:00 Test Item Value Reference Range Interpretation Comments Alk Phos (test code = Alk Phos) 65 39-136 [facility] CenterUgvplmbHGSZEULWQHGC3609-56-85 18:46:00 Test Item Value Reference Range Interpretation Comments Bili Total (test code = Bili Total) 0.3 0.2-1.3 [facility] CenterMbmcngoGNESZZINDFXV8852-42-15 18:46:00 Test Item Value Reference Range Interpretation Comments ALT (test code = ALT) 100 See_Comment [Auto mated message] The system which ge nerated this result transmit elizabeth reference range : <=65. The reference range was not used to interpr et this result as lukas l/abnormal. [facility] CenterNktihrlIFVJYWBKTBIB3549-16-34 18:46:00 Test Item Value Reference Range Interpretation Comments AST (test code = AST) 53 See_Comment [Auto mated message] The system which ge nerated this result transmit elizabeth reference range : <=37. The reference range was not used to interpr et this result as lukas l/abnormal. [facility] CenterKvlzkiyTMXUKRXHIHCB3750-45-42 18:46:00 Test Item Value Reference Range Interpretation Comments Total Protein (test code = Total 6.9 6.4-8.4 Protein) [facility] CenterWghogyoHLHJBYVWPL5298-50-31 18:46:00 Test Item Value Reference Range Interpretation Comments Eosinophils (test code = 4.2 See_Comment [A utomated message] The Eosinophils) system which ge nerated this result tra nsmitted reference range : <=4.0. The reference r mitra was not used to int erpret this result as normal/abnormal . [facility] CenterAcsdrekCZMMWNEQJS3725-31-88 18:46:00 Test Item Value Reference Range Interpretation Comments Segs (test code = Segs) 56.4 45.0-75.0 [facility] CenterCpcldcaKTYAUOIAUR9035-21-76 18:46:00 Test Item Value Reference Range Interpretation Comments Monocytes (test code = Monocytes) 10.3 2.0-12.0 [facility] CenterIxfsfczJOFFBRJIUS4734-98-92 18:46:00 Test Item Value Reference Range Interpretation Comments Lymphocytes (test code = Lymphocytes) 28.0 20.0-40.0 [facility] CenterOkopeitREMRQOZSPE9414-61-78 18:46:00 Test Item Value Reference Range Interpretation Comments Monocytes # (test code 0.5 See_Comment [Aut omated message] The = Monocytes #) system which generated this result tra nsmitted reference range : <=0.8. The reference r mitra was not used to int erpret this result as normal/abnormal . [facility] CenterKswxuqsOEGAHEQMWK9780-49-53 18:46:00 Test Item Value Reference Range Interpretation Comments Basophils (test code = 1.1 See_Comment [Aut omated message] The Basophils) system which ge nerated this result tra nsmitted reference range : <=1.0. The reference r mitra was not used to int erpret this result as normal/abnormal . [facility] CenterDucepatMPCHWOYMTW0567-79-04 18:46:00 Test Item Value Reference Range Interpretation Comments Lymphocytes # (test code = Lymphocytes 1.5 1.0-5.5 #) [facility] CenterQlztfoxDMEEDLYYNJ7587-65-92 18:46:00 Test Item Value Reference Range Interpretation Comments Segs-Bands # (test code = Segs-Bands #) 2.9 1.5-8.1 [facility] CenterWwdypcvMRESZAEXZL3638-86-83 18:46:00 Test Item Value Reference Range Interpretation Comments Eosinophils # (test code 0.2 See_Comment [A utomated message] The = Eosinophils #) system whic h generated this result tra nsmitted reference range : <=0.5. The reference r mitra was not used to int erpret this result as normal/abnormal . [facility] CenterUsjvvvvKERWXETWIX0186-17-74 18:46:00 Test Item Value Reference Range Interpretation Comments Basophils # (test code 0.1 See_Comment [Aut omated message] The = Basophils #) system which generated this result tra nsmitted reference range : <=0.2. The reference r mitra was not used to int erpret this result as normal/abnormal . [facility] CenterBgznuwlSOFIBAXKBV0764-61-27 18:46:00 Test Item Value Reference Range Interpretation Comments PT (test code = PT) 11.2 s 12.0-14.7 [facility] CenterQenmsfyHQTXOMCIZS2530-94-71 18:46:00 Test Item Value Reference Range Interpretation Comments INR (test code = INR) 0.82 0.85-1.17 [facility] CenterRgqxqqlAMUZWXSGVC7494-26-43 18:46:00 Test Item Value Reference Range Interpretation Comments PTT (test code = PTT) 28.6 s 22.9-35.8 [facility] CenterLtvhguaJPGSPPFIYF6973-15-24 18:46:00 Test Item Value Reference Range Interpretation Comments MPV (test code = MPV) 8.1 7.4-10.4 [facility] CenterGyjijdtFAEBWRWUUI1210-42-11 18:46:00 Test Item Value Reference Range Interpretation Comments Platelet (test code = Platelet) 301 133-450 [facility] CenterQagcrhjPGFTQIADGV1561-70-23 18:46:00 Test Item Value Reference Range Interpretation Comments RDW (test code = RDW) 14.5 11.5-14.5 [facility] CenterIumddoeYLYQJOVKLM8960-51-34 18:46:00 Test Item Value Reference Range Interpretation Comments RBC (test code = RBC) 4.84 4.70-6.10 [facility] CenterMonqfidRCIOZFHZTT5448-39-72 18:46:00 Test Item Value Reference Range Interpretation Comments Hgb (test code = Hgb) 14.4 14.0-18.0 [facility] CenterGbfpidqIGQOWJPSBB7159-12-40 18:46:00 Test Item Value Reference Range Interpretation Comments WBC (test code = WBC) 5.2 3.7-10.4 [facility] CenterCgrzgbxGJNGCTOYLH9611-33-46 18:46:00 Test Item Value Reference Range Interpretation Comments MCH (test code = MCH) 29.8 pg 27.0-31.0 [facility]KYAIXLYFL1764-[facility] 18:46:00 Test Item Value Reference Range Interpretation Comments MCV (test code = MCV) 92.0 80.0-94.0 [facility]dexykaZGMLXCKHOQ8835-09-32 18:46:00 Test Item Value Reference Range Interpretation Comments Hct (test code = Hct) 44.5 42.0-54.0 [facility] HospitalQhqvxpmLRSVVJZYXW3479-24-84 18:46:00 Test Item Value Reference Range Interpretation Comments MCHC (test code = MCHC) 32.4 32.0-36.0 [facility] HospitalMsbadqxTRLBVURFJX3192-41-55 18:46:00 Test Item Value Reference Range Interpretation Comments [place]-Hep C Ab (test Negative *NA*(07/22/14 code = [place]-Hep C 1:46 PM) Ab) [facility] AND [id number] 18:46:00 Test Item Value Reference Range Interpretation Comments UA Urobilinogen (test code = UA <=1.0 mg/dL 0.1-1.0 Urobilinogen) [facility] AND [id number] 18:46:00 Test Item Value Reference Range Interpretation Comments UA Sq Epi (test code = UA Sq Epi) None Seen [facility] AND [id number] 18:46:00 Test Item Value Reference Range Interpretation Comments UA Leuk Est (test Negative (07/22/14 1:46 code = UA Leuk Est) PM) [facility] AND [id number] 18:46:00 Test Item Value Reference Range Interpretation Comments UA Nitrite (test code Negative (07/22/14 1:46 = UA Nitrite) PM) [facility] AND [id number] 18:46:00 Test Item Value Reference Range Interpretation Comments UA Blood (test code = Negative (07/22/14 1:46 UA Blood) PM) [facility] AND [id number] 18:46:00 Test Item Value Reference Range Interpretation Comments UA Ketones (test code = UA Negative mg/dL Ketones) [facility] AND [id number] 18:46:00 Test Item Value Reference Range Interpretation Comments UA Bili (test code = Negative *NA*(07/22/14 UA Bili) 1:46 PM) [facility] AND [id number] 18:46:00 Test Item Value Reference Range Interpretation Comments UA Bacteria (test code = UA Occasional /HPF Bacteria) [facility] AND [id number] 18:46:00 Test Item Value Reference Range Interpretation Comments UA RBC (test code = no gt See_Comment [Automa elizabeth message] The UA RBC) system which ge nerated this result transmit elizabeth reference range : <=2. The reference range was not used to interpr et this result as lukas l/abnormal. [facility] AND [id number] 18:46:00 Test Item Value Reference Range Interpretation Comments UA WBC (test code = 1 See_Comment [Automa elizabeth message] The UA WBC) system which ge nerated this result transmit elizabeth reference range : <=5. The reference range was not used to interpr et this result as lukas l/abnormal. [facility] AND [id number] 18:46:00 Test Item Value Reference Range Interpretation Comments UA Glucose (test code = UA Glucose) 30 mg/dL [facility] AND [id number] 18:46:00 Test Item Value Reference Range Interpretation Comments UA Protein (test code = UA Negative mg/dL Protein) [facility] AND [id number] 18:46:00 Test Item Value Reference Range Interpretation Comments UA pH (test code = UA pH) 6.5 5.0-8.0 [facility] AND [id number] 18:46:00 Test Item Value Reference Range Interpretation Comments UA Turbidity (test code = Clear (07/22/14 1:46 UA Turbidity) PM) [facility] AND [id number] 18:46:00 Test Item Value Reference Range Interpretation Comments UA Spec Grav (test code = UA Spec Grav) 1.[address] [facility] AND [id number] 18:46:00 Test Item Value Reference Range Interpretation Comments UA Color (test code = Light Yellow UA Color) *NA*(07/22/14 1:46 PM) [facility] [id number] 18:46:00 Test Item Value Reference Range Interpretation Comments Magnesium Lvl (test code = Magnesium 1.8 1.8-2.4 Lvl) [facility] CenterPhpbowuCGXSPBLKCILS3452-40-71 18:46:00 Test Item Value Reference Range Interpretation Comments AGAP (test code = AGAP) 13.2 10.0-20.0 [facility] CenterUesmphmFKLQBUIKWSRO4714-13-99 18:46:00 Test Item Value Reference Range Interpretation Comments B/C Ratio (test code = B/C Ratio) 18 6-25 [facility] CenterKoesufkBZSMDASLNLGI4555-42-55 18:46:00 Test Item Value Reference Range Interpretation Comments A/G Ratio (test code = A/G Ratio) 1.1 0.7-1.6 [facility] CenterWprnbaiSVRPVHGIUCDA8002-62-63 18:46:00 Test Item Value Reference Range Interpretation Comments Globulin (test code = Globulin) 3.3 2.0-4.0 [facility] CenterXnrfwjiXMISMAIHXYDJ5604-82-37 18:46:00 Test Item Value Reference Range Interpretation Comments eGFR (test code = eGFR) 99 [facility] CenterUlfgrgyXVSCLZWGATML6047-33-75 18:46:00 Test Item Value Reference Range Interpretation Comments Calcium Lvl (test code = Calcium Lvl) 9.0 8.5-10.5 [facility] CenterZkuzbbaHJPRRXOALEPO6081-71-20 18:46:00 Test Item Value Reference Range Interpretation Comments Chloride Lvl (test code = Chloride Lvl) 106 95-109 [facility] CenterBtleaxfFJAPGMDUWKAF4130-90-82 18:46:00 Test Item Value Reference Range Interpretation Comments Creatinine Lvl (test code = Creatinine 0.9 0.5-1.4 Lvl) [facility] CenterAvthcncYIRJSBEKMOFG4298-66-14 18:46:00 Test Item Value Reference Range Interpretation Comments Potassium Lvl (test code = Potassium 4.2 3.5-5.1 Lvl) [facility] CenterOwdncowMLSFKUGKPOHF9628-25-27 18:46:00 Test Item Value Reference Range Interpretation Comments Sodium Lvl (test code = Sodium Lvl) 139 135-145 [facility] CenterSieichfCWFORBBAVYZI6720-41-01 18:46:00 Test Item Value Reference Range Interpretation Comments CO2 (test code = CO2) 24 24-32 [facility] CenterYjeywolRAJWAHFWGNYS0844-10-03 18:46:00 Test Item Value Reference Range Interpretation Comments BUN (test code = BUN) 16 7-22 [facility] CenterNwbidxdPQNBBCAAXSIB8641-23-86 18:46:00 Test Item Value Reference Range Interpretation Comments Glucose Lvl (test code = Glucose Lvl) 141 70-99 [facility] CenterYsejsuiJSDVTBDVRAQY8010-76-12 18:46:00 Test Item Value Reference Range Interpretation Comments Albumin Lvl (test code = Albumin Lvl) 3.6 3.5-5.0 [facility] CenterYhckvdrYTYCKVTOBHWQ3486-53-12 18:46:00 Test Item Value Reference Range Interpretation Comments Alk Phos (test code = Alk Phos) 65 39-136 [facility] CenterVjkpkxuUYCOTBFQGKWE8920-59-49 18:46:00 Test Item Value Reference Range Interpretation Comments Bili Total (test code = Bili Total) 0.3 0.2-1.3 [facility] CenterKacygtxKOAYHDJOYSZQ8785-09-99 18:46:00 Test Item Value Reference Range Interpretation Comments ALT (test code = ALT) 100 See_Comment [Auto mated message] The system which ge nerated this result transmit elizabeth reference range : <=65. The reference range was not used to interpr et this result as lukas l/abnormal. [facility] CenterTimyqwgZSUDSFDKKRVN8441-77-57 18:46:00 Test Item Value Reference Range Interpretation Comments AST (test code = AST) 53 See_Comment [Auto mated message] The system which ge nerated this result transmit elizabeth reference range : <=37. The reference range was not used to interpr et this result as lukas l/abnormal. [facility] CenterMykaiivYCSFHHTQVLHN0844-96-50 18:46:00 Test Item Value Reference Range Interpretation Comments Total Protein (test code = Total 6.9 6.4-8.4 Protein) [facility] CenterDslxepmNHEAYGNFSW8844-43-55 18:46:00 Test Item Value Reference Range Interpretation Comments Eosinophils (test code = 4.2 See_Comment [A utomated message] The Eosinophils) system which ge nerated this result tra nsmitted reference range : <=4.0. The reference r mitra was not used to int erpret this result as normal/abnormal . [facility] CenterWzymtwsAHTQVRBSSN5801-29-66 18:46:00 Test Item Value Reference Range Interpretation Comments Segs (test code = Segs) 56.4 45.0-75.0 [facility] CenterPxxvxfrPZPSJQCBTX0951-92-89 18:46:00 Test Item Value Reference Range Interpretation Comments Monocytes (test code = Monocytes) 10.3 2.0-12.0 [facility] CenterRxjrkabGGXVCHZXBL1312-55-30 18:46:00 Test Item Value Reference Range Interpretation Comments Lymphocytes (test code = Lymphocytes) 28.0 20.0-40.0 [facility] CenterBzljdnaAHKJUMEKNG9122-79-19 18:46:00 Test Item Value Reference Range Interpretation Comments Monocytes # (test code 0.5 See_Comment [Aut omated message] The = Monocytes #) system which generated this result tra nsmitted reference range : <=0.8. The reference r mitra was not used to int erpret this result as normal/abnormal . [facility] CenterBdrsbncBCPPUGROSN7199-10-00 18:46:00 Test Item Value Reference Range Interpretation Comments Basophils (test code = 1.1 See_Comment [Aut omated message] The Basophils) system which ge nerated this result tra nsmitted reference range : <=1.0. The reference r mitra was not used to int erpret this result as normal/abnormal . [facility] CenterQywxdnpKILETEMTQM1061-55-91 18:46:00 Test Item Value Reference Range Interpretation Comments Lymphocytes # (test code = Lymphocytes 1.5 1.0-5.5 #) [facility] CenterZrjxnebWRXVVHRFWA4969-03-02 18:46:00 Test Item Value Reference Range Interpretation Comments Segs-Bands # (test code = Segs-Bands #) 2.9 1.5-8.1 [facility] CenterLnzrovqKACORDHGXZ2866-79-45 18:46:00 Test Item Value Reference Range Interpretation Comments Eosinophils # (test code 0.2 See_Comment [A utomated message] The = Eosinophils #) system ic h generated this result tra nsmitted reference range : <=0.5. The reference r mitra was not used to int erpret this result as normal/abnormal . [facility] CenterAtklyfcXWGVBRYNSQ3814-42-93 18:46:00 Test Item Value Reference Range Interpretation Comments Basophils # (test code 0.1 See_Comment [Aut omated message] The = Basophils #) system which generated this result tra nsmitted reference range : <=0.2. The reference r mitra was not used to int erpret this result as normal/abnormal . [facility] CenterGliqojnVOJRNNDFRQ4088-42-64 18:46:00 Test Item Value Reference Range Interpretation Comments PT (test code = PT) 11.2 s 12.0-14.7 [facility] CenterZapcpvdZEISBRAPAX5446-94-78 18:46:00 Test Item Value Reference Range Interpretation Comments INR (test code = INR) 0.82 0.85-1.17 [facility] CenterTfbyepyQTPTRZOHBP5162-14-87 18:46:00 Test Item Value Reference Range Interpretation Comments PTT (test code = PTT) 28.6 s 22.9-35.8 [facility] CenterStmwvwxYEHOHTZTCQ6672-36-69 18:46:00 Test Item Value Reference Range Interpretation Comments MPV (test code = MPV) 8.1 7.4-10.4 [facility] CenterLzwwshsLDNOYBKURQ1007-54-12 18:46:00 Test Item Value Reference Range Interpretation Comments Platelet (test code = Platelet) 301 133-450 [facility] CenterUgvxpkiSRZHUJPOXO8678-19-91 18:46:00 Test Item Value Reference Range Interpretation Comments RDW (test code = RDW) 14.5 11.5-14.5 [facility] CenterLgshdzyIMFJYBMIJS3957-25-59 18:46:00 Test Item Value Reference Range Interpretation Comments RBC (test code = RBC) 4.84 4.70-6.10 [facility] CenterFlvvvwpJJGXJXNLCP9629-71-37 18:46:00 Test Item Value Reference Range Interpretation Comments Hgb (test code = Hgb) 14.4 14.0-18.0 [facility] CenterPajpjevHMCAFTIOMD1453-88-74 18:46:00 Test Item Value Reference Range Interpretation Comments WBC (test code = WBC) 5.2 3.7-10.4 [facility] CenterXzgkvzbWYLTJMXZDR1788-30-02 18:46:00 Test Item Value Reference Range Interpretation Comments MCH (test code = MCH) 29.8 pg 27.0-31.0 [facility] CenterLfbpsqmUDIWBEYVII2443-81-79 18:46:00 Test Item Value Reference Range Interpretation Comments MCV (test code = MCV) 92.0 80.0-94.0 [facility] CenterKvifymuMGNOFTQBGE0894-68-80 18:46:00 Test Item Value Reference Range Interpretation Comments Hct (test code = Hct) 44.5 42.0-54.0 [facility] CenterVkymmuxDCMMLKTZBA7064-25-91 18:46:00 Test Item Value Reference Range Interpretation Comments MCHC (test code = MCHC) 32.4 32.0-36.0 [facility] DrkwozuPAUBMTYSWP0396-51-90 18:46:00 Test Item Value Reference Range Interpretation Comments [place]Hep C Ab (test Negative *NA*(07/22/14 code = [place]-Hep C 1:46 PM) Ab) [facility] [id number] 18:46:00 Test Item Value Reference Range Interpretation Comments UA Urobilinogen (test code = UA <=1.0 mg/dL 0.1-1.0 Urobilinogen) [facility] [id number] 18:46:00 Test Item Value Reference Range Interpretation Comments UA Sq Epi (test code = UA Sq Epi) None Seen [facility] AND [id number] 18:46:00 Test Item Value Reference Range Interpretation Comments UA Leuk Est (test Negative (07/22/14 1:46 code = UA Leuk Est) PM) [facility] [id number] 18:46:00 Test Item Value Reference Range Interpretation Comments UA Nitrite (test code Negative (07/22/14 1:46 = UA Nitrite) PM) [facility] AND [id number] 18:46:00 Test Item Value Reference Range Interpretation Comments UA Blood (test code = Negative (07/22/14 1:46 UA Blood) PM) [facility] [id number] 18:46:00 Test Item Value Reference Range Interpretation Comments UA Ketones (test code = UA Negative mg/dL Ketones) [facility] [id number] 18:46:00 Test Item Value Reference Range Interpretation Comments UA Bili (test code = Negative *NA*(07/22/14 UA Bili) 1:46 PM) [facility] [id number] 18:46:00 Test Item Value Reference Range Interpretation Comments UA Bacteria (test code = UA Occasional /HPF Bacteria) [facility] [id number] 18:46:00 Test Item Value Reference Range Interpretation Comments UA RBC (test code = no gt See_Comment [Automa elizabeth message] The UA RBC) system which ge nerated this result transmit elizabeth reference range : <=2. The reference range was not used to interpr et this result as lukas l/abnormal. [facility] AND [id number] 18:46:00 Test Item Value Reference Range Interpretation Comments UA WBC (test code = 1 See_Comment [Automa elizabeth message] The UA WBC) system which ge nerated this result transmit elizabeth reference range : <=5. The reference range was not used to interpr et this result as lukas l/abnormal. [facility] AND [id number] 18:46:00 Test Item Value Reference Range Interpretation Comments UA Glucose (test code = UA Glucose) 30 mg/dL [facility] AND [id number] 18:46:00 Test Item Value Reference Range Interpretation Comments UA Protein (test code = UA Negative mg/dL Protein) [facility] AND [id number] 18:46:00 Test Item Value Reference Range Interpretation Comments UA pH (test code = UA pH) 6.5 5.0-8.0 [facility] AND [id number] 18:46:00 Test Item Value Reference Range Interpretation Comments UA Turbidity (test code = Clear (07/22/14 1:46 UA Turbidity) PM) [facility] AND [id number] 18:46:00 Test Item Value Reference Range Interpretation Comments UA Spec Grav (test code = UA Spec Grav) 1.010 [facility] AND [id number] 18:46:00 Test Item Value Reference Range Interpretation Comments UA Color (test code = Light Yellow UA Color) *NA*(07/22/14 1:46 PM) [facility] [id number] 18:46:00 Test Item Value Reference Range Interpretation Comments Magnesium Lvl (test code = Magnesium 1.8 1.8-2.4 Lvl) [facility]gvdoklQMFBACHGZZHK8789-79-21 18:46:00 Test Item Value Reference Range Interpretation Comments AGAP (test code = AGAP) 13.2 10.0-20.0 [facility] HospitalQktvkakCYHCYLAIUVYY5057-18-35 18:46:00 Test Item Value Reference Range Interpretation Comments B/C Ratio (test code = B/C Ratio) 18 6-25 [facility] HospitalTlluqrkWNIQKKAAZFNG7106-05-04 18:46:00 Test Item Value Reference Range Interpretation Comments A/G Ratio (test code = A/G Ratio) 1.1 0.7-1.6 [facility]ThufyjfTWSWDSRSDSKK4215-30-30 18:46:00 Test Item Value Reference Range Interpretation Comments Globulin (test code = Globulin) 3.3 2.0-4.0 [facility] CenterKfblzvvEVYSHFLDUEWY5477-87-81 18:46:00 Test Item Value Reference Range Interpretation Comments eGFR (test code = eGFR) 99 [facility] CenterVolchrnOEWOKDKUYRHQ7844-66-28 18:46:00 Test Item Value Reference Range Interpretation Comments Calcium Lvl (test code = Calcium Lvl) 9.0 8.5-10.5 [facility] CenterOmxtyamSZLGYYFGTWSE5906-11-41 18:46:00 Test Item Value Reference Range Interpretation Comments Chloride Lvl (test code = Chloride Lvl) 106 95-109 [facility] CenterYumvncvXREBGVYFZOEN0815-27-54 18:46:00 Test Item Value Reference Range Interpretation Comments Creatinine Lvl (test code = Creatinine 0.9 0.5-1.4 Lvl) [facility] CenterXcqfffjJQGYZYMWRKPM7987-11-67 18:46:00 Test Item Value Reference Range Interpretation Comments Potassium Lvl (test code = Potassium 4.2 3.5-5.1 Lvl) [facility] CenterMaguhprJYBOPPXIUYTM7949-54-27 18:46:00 Test Item Value Reference Range Interpretation Comments Sodium Lvl (test code = Sodium Lvl) 139 135-145 [facility] CenterSapszdwIPDQLUKFHBSY5604-86-05 18:46:00 Test Item Value Reference Range Interpretation Comments CO2 (test code = CO2) 24 24-32 [facility] CenterNexjcpbANWZRWGDFEGG1254-22-22 18:46:00 Test Item Value Reference Range Interpretation Comments BUN (test code = BUN) 16 7-22 [facility] CenterVsfnxgrMMBRNAUQCMTG1528-94-10 18:46:00 Test Item Value Reference Range Interpretation Comments Glucose Lvl (test code = Glucose Lvl) 141 70-99 [facility] CenterZbdeaseDKSKSGIVKWLC0808-13-57 18:46:00 Test Item Value Reference Range Interpretation Comments Albumin Lvl (test code = Albumin Lvl) 3.6 3.5-5.0 [facility] CenterBtnrfjjNLRUOJIUXHLH8830-82-14 18:46:00 Test Item Value Reference Range Interpretation Comments Alk Phos (test code = Alk Phos) 65 39-136 [facility] CenterXntaijsAOILTESERIKK6966-38-80 18:46:00 Test Item Value Reference Range Interpretation Comments Bili Total (test code = Bili Total) 0.3 0.2-1.3 [facility] CenterQqhuguwBIOVJGWLKOMZ3118-56-05 18:46:00 Test Item Value Reference Range Interpretation Comments ALT (test code = ALT) 100 See_Comment [Auto mated message] The system which ge nerated this result transmit elizabeth reference range : <=65. The reference range was not used to interpr et this result as lukas l/abnormal. [facility] CenterPurgilsSQLVQHBEIMLG3689-69-23 18:46:00 Test Item Value Reference Range Interpretation Comments AST (test code = AST) 53 See_Comment [Auto mated message] The system which ge nerated this result transmit elizabeth reference range : <=37. The reference range was not used to interpr et this result as lukas l/abnormal. [facility] CenterHxrrrflZPHVIQQVVXDQ0113-82-24 18:46:00 Test Item Value Reference Range Interpretation Comments Total Protein (test code = Total 6.9 6.4-8.4 Protein) [facility] CenterImdzfbpTQTSMRLWIR7388-37-87 18:46:00 Test Item Value Reference Range Interpretation Comments Eosinophils (test code = 4.2 See_Comment [A utomated message] The Eosinophils) system which ge nerated this result tra nsmitted reference range : <=4.0. The reference r mitra was not used to int erpret this result as normal/abnormal . [facility] CenterIvyrczuXIIKHFKHDX8425-44-63 18:46:00 Test Item Value Reference Range Interpretation Comments Segs (test code = Segs) 56.4 45.0-75.0 [facility] CenterPawkkdcABIGSVAADR3698-69-53 18:46:00 Test Item Value Reference Range Interpretation Comments Monocytes (test code = Monocytes) 10.3 2.0-12.0 [facility] CenterQwnnpqnBKLMNNMTQO4620-54-41 18:46:00 Test Item Value Reference Range Interpretation Comments Lymphocytes (test code = Lymphocytes) 28.0 20.0-40.0 [facility] CenterIopkoacULJNBERAIM7854-35-67 18:46:00 Test Item Value Reference Range Interpretation Comments Monocytes # (test code 0.5 See_Comment [Aut omated message] The = Monocytes #) system which generated this result tra nsmitted reference range : <=0.8. The reference r mitra was not used to int erpret this result as normal/abnormal . [facility] CenterOkkjrbzKGDTDEZPMJ1976-78-73 18:46:00 Test Item Value Reference Range Interpretation Comments Basophils (test code = 1.1 See_Comment [Aut omated message] The Basophils) system which ge nerated this result tra nsmitted reference range : <=1.0. The reference r mitra was not used to int erpret this result as normal/abnormal . [facility] CenterBnjlhvcQVIWAROBNZ9301-27-25 18:46:00 Test Item Value Reference Range Interpretation Comments Lymphocytes # (test code = Lymphocytes 1.5 1.0-5.5 #) [facility] CenterUhhbolhLENEXDUSGX1057-15-18 18:46:00 Test Item Value Reference Range Interpretation Comments Segs-Bands # (test code = Segs-Bands #) 2.9 1.5-8.1 [facility] CenterOraceyoRTGDBJRLXN8654-80-80 18:46:00 Test Item Value Reference Range Interpretation Comments Eosinophils # (test code 0.2 See_Comment [A utomated message] The = Eosinophils #) system wh h generated this result tra nsmitted reference range : <=0.5. The reference r mitra was not used to int erpret this result as normal/abnormal . [facility] CenterOwojqwzBNBTJEKPQE2804-77-60 18:46:00 Test Item Value Reference Range Interpretation Comments Basophils # (test code 0.1 See_Comment [Aut omated message] The = Basophils #) system which generated this result tra nsmitted reference range : <=0.2. The reference r mitra was not used to int erpret this result as normal/abnormal . [facility] CenterSctlqtuXTUPHENCOK2872-18-16 18:46:00 Test Item Value Reference Range Interpretation Comments PT (test code = PT) 11.2 s 12.0-14.7 [facility] CenterDoemrjlDNUFLBIAZU7287-12-21 18:46:00 Test Item Value Reference Range Interpretation Comments INR (test code = INR) 0.82 0.85-1.17 [facility] CenterMgktlcyUVMWUPWHZT2881-92-09 18:46:00 Test Item Value Reference Range Interpretation Comments PTT (test code = PTT) 28.6 s 22.9-35.8 [facility] CenterWltbkuhHHYOSJDRWW0171-99-21 18:46:00 Test Item Value Reference Range Interpretation Comments MPV (test code = MPV) 8.1 7.4-10.4 [facility] CenterNklynugYMGXRTZIKW4288-89-32 18:46:00 Test Item Value Reference Range Interpretation Comments Platelet (test code = Platelet) 301 133-450 [facility] CenterXplbzyvEQYKDYKNVE3590-77-69 18:46:00 Test Item Value Reference Range Interpretation Comments RDW (test code = RDW) 14.5 11.5-14.5 [facility] CenterWhqskrwDGLYJPNZAB2419-68-94 18:46:00 Test Item Value Reference Range Interpretation Comments RBC (test code = RBC) 4.84 4.70-6.10 [facility] CenterGfezlhbJCKQSRHFAA1323-48-88 18:46:00 Test Item Value Reference Range Interpretation Comments Hgb (test code = Hgb) 14.4 14.0-18.0 [facility] CenterBazmulrXJKSKQVMHM8440-70-49 18:46:00 Test Item Value Reference Range Interpretation Comments WBC (test code = WBC) 5.2 3.7-10.4 [facility] CenterMgchqehHKBXKWCPDW1447-65-11 18:46:00 Test Item Value Reference Range Interpretation Comments MCH (test code = MCH) 29.8 pg 27.0-31.0 [facility] CenterYsqijtyESYVRIRWJZ4534-49-08 18:46:00 Test Item Value Reference Range Interpretation Comments MCV (test code = MCV) 92.0 80.0-94.0 [facility] CenterKxrzygvWNTPFFJUAS9649-16-42 18:46:00 Test Item Value Reference Range Interpretation Comments Hct (test code = Hct) 44.5 42.0-54.0 [facility] CenterKvuewvhYBWLJFNAMF5940-50-53 18:46:00 Test Item Value Reference Range Interpretation Comments MCHC (test code = MCHC) 32.4 32.0-36.0 [facility]RmsaxqcUVIUYNYTMH5849-21-72 18:46:00 Test Item Value Reference Range Interpretation Comments [place]-Hep C Ab (test Negative *NA*(07/22/14 code = [place]-Hep C 1:46 PM) Ab) [facility] AND [id number] 18:46:00 Test Item Value Reference Range Interpretation Comments UA Urobilinogen (test code = UA <=1.0 mg/dL 0.1-1.0 Urobilinogen) [facility] AND [id number] 18:46:00 Test Item Value Reference Range Interpretation Comments UA Sq Epi (test code = UA Sq Epi) None Seen [facility] AND [id number] 18:46:00 Test Item Value Reference Range Interpretation Comments UA Leuk Est (test Negative (07/22/14 1:46 code = UA Leuk Est) PM) [facility] AND [id number] 18:46:00 Test Item Value Reference Range Interpretation Comments UA Nitrite (test code Negative (07/22/14 1:46 = UA Nitrite) PM) [facility] AND [id number] 18:46:00 Test Item Value Reference Range Interpretation Comments UA Blood (test code = Negative (07/22/14 1:46 UA Blood) PM) [facility] AND [id number] 18:46:00 Test Item Value Reference Range Interpretation Comments UA Ketones (test code = UA Negative mg/dL Ketones) [facility] AND [id number] 18:46:00 Test Item Value Reference Range Interpretation Comments UA Bili (test code = Negative *NA*(07/22/14 UA Bili) 1:46 PM) [facility] AND [id number] 18:46:00 Test Item Value Reference Range Interpretation Comments UA Bacteria (test code = UA Occasional /HPF Bacteria) [facility] AND [id number] 18:46:00 Test Item Value Reference Range Interpretation Comments UA RBC (test code = no gt See_Comment [Automa elizabeth message] The UA RBC) system which ge nerated this result transmit elizabeth reference range : <=2. The reference range was not used to interpr et this result as lukas l/abnormal. [facility] AND [id number] 18:46:00 Test Item Value Reference Range Interpretation Comments UA WBC (test code = 1 See_Comment [Automa elizabeth message] The UA WBC) system which ge nerated this result transmit elizabeth reference range : <=5. The reference range was not used to interpr et this result as lukas l/abnormal. [facility] AND [id number] 18:46:00 Test Item Value Reference Range Interpretation Comments UA Glucose (test code = UA Glucose) 30 mg/dL [facility] AND [id number] 18:46:00 Test Item Value Reference Range Interpretation Comments UA Protein (test code = UA Negative mg/dL Protein) [facility] AND [id number] 18:46:00 Test Item Value Reference Range Interpretation Comments UA pH (test code = UA pH) 6.5 5.0-8.0 [facility] AND [id number] 18:46:00 Test Item Value Reference Range Interpretation Comments UA Turbidity (test code = Clear (07/22/14 1:46 UA Turbidity) PM) [facility] AND [id number] 18:46:00 Test Item Value Reference Range Interpretation Comments UA Spec Grav (test code = UA Spec Grav) 1.010 [facility] AND [id number] 18:46:00 Test Item Value Reference Range Interpretation Comments UA Color (test code = Light Yellow UA Color) *NA*(07/22/14 1:46 PM) [facility] [id number] 18:46:00 Test Item Value Reference Range Interpretation Comments Magnesium Lvl (test code = Magnesium 1.8 1.8-2.4 Lvl) [facility] CenterTeofogxNNHDYEGMRSFC4176-61-39 18:46:00 Test Item Value Reference Range Interpretation Comments AGAP (test code = AGAP) 13.2 10.0-20.0 [facility] CenterXtchmurURBERUIALFMC0561-52-85 18:46:00 Test Item Value Reference Range Interpretation Comments B/C Ratio (test code = B/C Ratio) 18 6-25 [facility] CenterCcuakpkZQSQCQLGPVRT5940-50-57 18:46:00 Test Item Value Reference Range Interpretation Comments A/G Ratio (test code = A/G Ratio) 1.1 0.7-1.6 [facility] CenterYbffnmrGPVMGVSPADFF2905-87-17 18:46:00 Test Item Value Reference Range Interpretation Comments Globulin (test code = Globulin) 3.3 2.0-4.0 [facility] CenterTjhvrtsHLGBRBBQBCRI0080-12-68 18:46:00 Test Item Value Reference Range Interpretation Comments eGFR (test code = eGFR) 99 [facility] CenterDujlbxvECLFIBVTFBLU0987-03-99 18:46:00 Test Item Value Reference Range Interpretation Comments Calcium Lvl (test code = Calcium Lvl) 9.0 8.5-10.5 [facility] CenterIruudftYNSDDRAODDCI3505-08-53 18:46:00 Test Item Value Reference Range Interpretation Comments Chloride Lvl (test code = Chloride Lvl) 106 95-109 [facility] CenterBypgswqPEZHYFCEOFQD4237-38-71 18:46:00 Test Item Value Reference Range Interpretation Comments Creatinine Lvl (test code = Creatinine 0.9 0.5-1.4 Lvl) [facility] CenterYfqbwcuEPHFVKEABLZI4017-45-14 18:46:00 Test Item Value Reference Range Interpretation Comments Potassium Lvl (test code = Potassium 4.2 3.5-5.1 Lvl) [facility] CenterAnlfojtAQIIRMBYKVQU5647-85-23 18:46:00 Test Item Value Reference Range Interpretation Comments Sodium Lvl (test code = Sodium Lvl) 139 135-145 [facility] CenterRxhlahdHMFDYPAYLSJM3482-45-16 18:46:00 Test Item Value Reference Range Interpretation Comments CO2 (test code = CO2) 24 24-32 [facility] CenterUuphfhvVAZQQBCHNFKT7780-23-93 18:46:00 Test Item Value Reference Range Interpretation Comments BUN (test code = BUN) 16 7-22 [facility] CenterOxjrhguQJFWZCLPBODW3406-02-93 18:46:00 Test Item Value Reference Range Interpretation Comments Glucose Lvl (test code = Glucose Lvl) 141 70-99 [facility] CenterEafzkjqBEKZUDSQRRIP4000-03-91 18:46:00 Test Item Value Reference Range Interpretation Comments Albumin Lvl (test code = Albumin Lvl) 3.6 3.5-5.0 [facility] CenterQwkombgAOFMLTOGROQB5991-93-43 18:46:00 Test Item Value Reference Range Interpretation Comments Alk Phos (test code = Alk Phos) 65 39-136 [facility] CenterXuyokkpSYXLBTXPKWZJ5360-18-11 18:46:00 Test Item Value Reference Range Interpretation Comments Bili Total (test code = Bili Total) 0.3 0.2-1.3 [facility] CenterHwnealiGFKMRMTCYTHX0240-21-30 18:46:00 Test Item Value Reference Range Interpretation Comments ALT (test code = ALT) 100 See_Comment [Auto mated message] The system which ge nerated this result transmit elizabeth reference range : <=65. The reference range was not used to interpr et this result as lukas l/abnormal. [facility] CenterIqrehbsDFQASDAXZIBW7591-93-78 18:46:00 Test Item Value Reference Range Interpretation Comments AST (test code = AST) 53 See_Comment [Auto mated message] The system which ge nerated this result transmit elizabeth reference range : <=37. The reference range was not used to interpr et this result as lukas l/abnormal. [facility] CenterVhlyxxdCMDLNBPCMUVG1614-66-78 18:46:00 Test Item Value Reference Range Interpretation Comments Total Protein (test code = Total 6.9 6.4-8.4 Protein) [facility] CenterOtmywkuYMAHPOQYWD7473-96-91 18:46:00 Test Item Value Reference Range Interpretation Comments Eosinophils (test code = 4.2 See_Comment [A utomated message] The Eosinophils) system which ge nerated this result tra nsmitted reference range : <=4.0. The reference r mitra was not used to int erpret this result as normal/abnormal . [facility] CenterLvpigfnMJYKJJCBUP8072-80-11 18:46:00 Test Item Value Reference Range Interpretation Comments Segs (test code = Segs) 56.4 45.0-75.0 [facility] CenterGtahktoOZTTZOICMN5079-27-58 18:46:00 Test Item Value Reference Range Interpretation Comments Monocytes (test code = Monocytes) 10.3 2.0-12.0 [facility] CenterCpjycngKOHQILXVBV0273-56-35 18:46:00 Test Item Value Reference Range Interpretation Comments Lymphocytes (test code = Lymphocytes) 28.0 20.0-40.0 [facility] CenterYnbnczxMKCAWNUHCP8826-72-14 18:46:00 Test Item Value Reference Range Interpretation Comments Monocytes # (test code 0.5 See_Comment [Aut omated message] The = Monocytes #) system which generated this result tra nsmitted reference range : <=0.8. The reference r mitra was not used to int erpret this result as normal/abnormal . [facility] CenterFkatgblWJUENSSWMY1019-63-59 18:46:00 Test Item Value Reference Range Interpretation Comments Basophils (test code = 1.1 See_Comment [Aut omated message] The Basophils) system which ge nerated this result tra nsmitted reference range : <=1.0. The reference r mitra was not used to int erpret this result as normal/abnormal . [facility] CenterOlsgqurLHSZPUDOAS3541-91-76 18:46:00 Test Item Value Reference Range Interpretation Comments Lymphocytes # (test code = Lymphocytes 1.5 1.0-5.5 #) [facility] CenterGxhurreFUNVUJTURR1643-22-60 18:46:00 Test Item Value Reference Range Interpretation Comments Segs-Bands # (test code = Segs-Bands #) 2.9 1.5-8.1 [facility] CenterMfbfqkiSQCMGWWIAQ0817-60-42 18:46:00 Test Item Value Reference Range Interpretation Comments Eosinophils # (test code 0.2 See_Comment [A utomated message] The = Eosinophils #) system whic h generated this result tra nsmitted reference range : <=0.5. The reference r mitra was not used to int erpret this result as normal/abnormal . [facility] CenterFtkoxtkJYAIRUNMDW2542-76-84 18:46:00 Test Item Value Reference Range Interpretation Comments Basophils # (test code 0.1 See_Comment [Aut omated message] The = Basophils #) system which generated this result tra nsmitted reference range : <=0.2. The reference r mitra was not used to int erpret this result as normal/abnormal . [facility] CenterSirjvngLWCNXMCAVW8834-53-88 18:46:00 Test Item Value Reference Range Interpretation Comments PT (test code = PT) 11.2 s 12.0-14.7 [facility] CenterNyakzrpDXJIPRAJXA8486-89-51 18:46:00 Test Item Value Reference Range Interpretation Comments INR (test code = INR) 0.82 0.85-1.17 [facility] CenterNkbokeiCPZOVSFACA9867-09-19 18:46:00 Test Item Value Reference Range Interpretation Comments PTT (test code = PTT) 28.6 s 22.9-35.8 [facility] CenterHpqmpyjJQDERHTOTK9578-49-51 18:46:00 Test Item Value Reference Range Interpretation Comments MPV (test code = MPV) 8.1 7.4-10.4 [facility] CenterQotiabmCMYAHZRHWJ7243-46-82 18:46:00 Test Item Value Reference Range Interpretation Comments Platelet (test code = Platelet) 301 133-450 [facility] CenterYkkecuuCBMJGMMAZK1425-25-35 18:46:00 Test Item Value Reference Range Interpretation Comments RDW (test code = RDW) 14.5 11.5-14.5 [facility] CenterQfiozvjIWESINUBQJ2431-90-49 18:46:00 Test Item Value Reference Range Interpretation Comments RBC (test code = RBC) 4.84 4.70-6.10 [facility] CenterHirsdrdCLPKTVKYZO5863-25-70 18:46:00 Test Item Value Reference Range Interpretation Comments Hgb (test code = Hgb) 14.4 14.0-18.0 [facility]KyynifnQQZRCEMZET6210-31-84 18:46:00 Test Item Value Reference Range Interpretation Comments WBC (test code = WBC) 5.2 3.7-10.4 [facility] HospitalDoreevxIQFLTWECKH3879-35-25 18:46:00 Test Item Value Reference Range Interpretation Comments MCH (test code = MCH) 29.8 pg 27.0-31.0 [facility]PtbmocrWOXNZZJPVW8894-12-61 18:46:00 Test Item Value Reference Range Interpretation Comments MCV (test code = MCV) 92.0 80.0-94.0 [facility] HospitalXaaedktFKTPUQZYNB3162-54-05 18:46:00 Test Item Value Reference Range Interpretation Comments Hct (test code = Hct) 44.5 42.0-54.0 [facility] HospitalUrdkwacDPTBQFUHZT8715-83-94 18:46:00 Test Item Value Reference Range Interpretation Comments MCHC (test code = MCHC) 32.4 32.0-36.0 [facility] HospitalGyfmldcHFUSBPXDPJ3850-61-61 18:46:00 Test Item Value Reference Range Interpretation Comments [place]Hep C Ab (test Negative *NA*(07/22/14 code = [place]-Hep C 1:46 PM) Ab) [facility] AND [id number] 18:46:00 Test Item Value Reference Range Interpretation Comments UA Urobilinogen (test code = UA <=1.0 mg/dL 0.1-1.0 Urobilinogen) [facility] AND [id number] 18:46:00 Test Item Value Reference Range Interpretation Comments UA Sq Epi (test code = UA Sq Epi) None Seen [facility] AND [id number] 18:46:00 Test Item Value Reference Range Interpretation Comments UA Leuk Est (test Negative (07/22/14 1:46 code = UA Leuk Est) PM) [facility] AND [id number] 18:46:00 Test Item Value Reference Range Interpretation Comments UA Nitrite (test code Negative (07/22/14 1:46 = UA Nitrite) PM) [facility] AND [id number] 18:46:00 Test Item Value Reference Range Interpretation Comments UA Blood (test code = Negative (07/22/14 1:46 UA Blood) PM) [facility] AND [id number] 18:46:00 Test Item Value Reference Range Interpretation Comments UA Ketones (test code = UA Negative mg/dL Ketones) [facility] AND [id number] 18:46:00 Test Item Value Reference Range Interpretation Comments UA Bili (test code = Negative *NA*(07/22/14 UA Bili) 1:46 PM) [facility] AND [id number] 18:46:00 Test Item Value Reference Range Interpretation Comments UA Bacteria (test code = UA Occasional /HPF Bacteria) [facility] AND [id number] 18:46:00 Test Item Value Reference Range Interpretation Comments UA RBC (test code = no gt See_Comment [Automa elizabeth message] The UA RBC) system which ge nerated this result transmit elizabeth reference range : <=2. The reference range was not used to interpr et this result as lukas l/abnormal. [facility] AND [id number] 18:46:00 Test Item Value Reference Range Interpretation Comments UA WBC (test code = 1 See_Comment [Automa elizabeth message] The UA WBC) system which ge nerated this result transmit elizabeth reference range : <=5. The reference range was not used to interpr et this result as lukas l/abnormal. [facility] AND [id number] 18:46:00 Test Item Value Reference Range Interpretation Comments UA Glucose (test code = UA Glucose) 30 mg/dL [facility] AND [id number] 18:46:00 Test Item Value Reference Range Interpretation Comments UA Protein (test code = UA Negative mg/dL Protein) [facility] AND [id number] 18:46:00 Test Item Value Reference Range Interpretation Comments UA pH (test code = UA pH) 6.5 5.0-8.0 [facility] AND [id number] 18:46:00 Test Item Value Reference Range Interpretation Comments UA Turbidity (test code = Clear (07/22/14 1:46 UA Turbidity) PM) [facility] AND [id number] 18:46:00 Test Item Value Reference Range Interpretation Comments UA Spec Grav (test code = UA Spec Grav) 1.010 [facility] AND [id number] 18:46:00 Test Item Value Reference Range Interpretation Comments UA Color (test code = Light Yellow UA Color) *NA*(07/22/14 1:46 PM) [facility] [id number] 18:46:00 Test Item Value Reference Range Interpretation Comments Magnesium Lvl (test code = Magnesium 1.8 1.8-2.4 Lvl) [facility]FfffaydLQFBCIDGLIQE1357-58-24 18:46:00 Test Item Value Reference Range Interpretation Comments AGAP (test code = AGAP) 13.2 10.0-20.0 [facility] CenterTsgoyegMPQCJXFRZFIT4819-46-09 18:46:00 Test Item Value Reference Range Interpretation Comments B/C Ratio (test code = B/C Ratio) 18 6-25 [facility] CenterQtathfnVAMMXMEEWABM5683-56-87 18:46:00 Test Item Value Reference Range Interpretation Comments A/G Ratio (test code = A/G Ratio) 1.1 0.7-1.6 [facility] CenterUebejwgBWGAYIJFZYZF1652-40-51 18:46:00 Test Item Value Reference Range Interpretation Comments Globulin (test code = Globulin) 3.3 2.0-4.0 [facility] CenterRuosmdnHRUSSOXHKTDB1027-56-95 18:46:00 Test Item Value Reference Range Interpretation Comments eGFR (test code = eGFR) 99 [facility] CenterIyrmrclVUCVQAYCUWRH2245-97-00 18:46:00 Test Item Value Reference Range Interpretation Comments Calcium Lvl (test code = Calcium Lvl) 9.0 8.5-10.5 [facility] CenterBslpcoqFYCHHCLQZEHX5543-59-24 18:46:00 Test Item Value Reference Range Interpretation Comments Chloride Lvl (test code = Chloride Lvl) 106 95-109 [facility] CenterBgtzhavLXSQETTHFKZU6174-18-04 18:46:00 Test Item Value Reference Range Interpretation Comments Creatinine Lvl (test code = Creatinine 0.9 0.5-1.4 Lvl) [facility] CenterNojbqraMORNPYYBGQBU3637-43-66 18:46:00 Test Item Value Reference Range Interpretation Comments Potassium Lvl (test code = Potassium 4.2 3.5-5.1 Lvl) [facility] CenterFgvjrabBZGEPMNSKNGB9371-79-48 18:46:00 Test Item Value Reference Range Interpretation Comments Sodium Lvl (test code = Sodium Lvl) 139 135-145 [facility] CenterXglgxbdHRPIPVLYPTUK9768-70-86 18:46:00 Test Item Value Reference Range Interpretation Comments CO2 (test code = CO2) 24 24-32 [facility] CenterFjizodtMSPUGSTIDORN9646-35-77 18:46:00 Test Item Value Reference Range Interpretation Comments BUN (test code = BUN) 16 7-22 [facility] CenterKhfoboyBJLWDGFTLTDD3795-55-03 18:46:00 Test Item Value Reference Range Interpretation Comments Glucose Lvl (test code = Glucose Lvl) 141 70-99 [facility] CenterLnsbfeeFPQCAXVJXZYM0756-31-08 18:46:00 Test Item Value Reference Range Interpretation Comments Albumin Lvl (test code = Albumin Lvl) 3.6 3.5-5.0 [facility] CenterEuovzzgDTRMIKTZRWRG2792-26-21 18:46:00 Test Item Value Reference Range Interpretation Comments Alk Phos (test code = Alk Phos) 65 39-136 [facility] CenterRihsfeoMKABOVHMXBRU6732-97-92 18:46:00 Test Item Value Reference Range Interpretation Comments Bili Total (test code = Bili Total) 0.3 0.2-1.3 [facility] CenterFtddhegOZILANZHYIGU2731-76-83 18:46:00 Test Item Value Reference Range Interpretation Comments ALT (test code = ALT) 100 See_Comment [Auto mated message] The system which ge nerated this result transmit elizabeth reference range : <=65. The reference range was not used to interpr et this result as lukas l/abnormal. [facility] CenterUfgrmegJMMCIUWDRYTZ1410-90-68 18:46:00 Test Item Value Reference Range Interpretation Comments AST (test code = AST) 53 See_Comment [Auto mated message] The system which ge nerated this result transmit elizabeth reference range : <=37. The reference range was not used to interpr et this result as lukas l/abnormal. [facility] CenterPiscvjwKODTCZPLMWEA9164-29-09 18:46:00 Test Item Value Reference Range Interpretation Comments Total Protein (test code = Total 6.9 6.4-8.4 Protein) [facility]wwwpqnNLFVBMEQBG7407-19-85 18:46:00 Test Item Value Reference Range Interpretation Comments Eosinophils (test code = 4.2 See_Comment [A utomated message] The Eosinophils) system which ge nerated this result tra nsmitted reference range : <=4.0. The reference r mitra was not used to int erpret this result as normal/abnormal . [facility] CenterWvdeztvQUEQAJJYPD4646-82-75 18:46:00 Test Item Value Reference Range Interpretation Comments Segs (test code = Segs) 56.4 45.0-75.0 [facility] CenterErdcubrNAKHELXOMV2799-28-64 18:46:00 Test Item Value Reference Range Interpretation Comments Monocytes (test code = Monocytes) 10.3 2.0-12.0 [facility] CenterDagdsthCVIXKKZXBA9601-11-19 18:46:00 Test Item Value Reference Range Interpretation Comments Lymphocytes (test code = Lymphocytes) 28.0 20.0-40.0 [facility] CenterTbcjoqzYLCKBYGCSD3202-53-30 18:46:00 Test Item Value Reference Range Interpretation Comments Monocytes # (test code 0.5 See_Comment [Aut omated message] The = Monocytes #) system which generated this result tra nsmitted reference range : <=0.8. The reference r mitra was not used to int erpret this result as normal/abnormal . [facility] CenterTydugdvMJLKHIVRYF5180-55-30 18:46:00 Test Item Value Reference Range Interpretation Comments Basophils (test code = 1.1 See_Comment [Aut omated message] The Basophils) system which ge nerated this result tra nsmitted reference range : <=1.0. The reference r mitra was not used to int erpret this result as normal/abnormal . [facility] CenterTdeewpzCWINQXZLSA1227-58-16 18:46:00 Test Item Value Reference Range Interpretation Comments Lymphocytes # (test code = Lymphocytes 1.5 1.0-5.5 #) [facility] CenterHkzyqagMPCCSQLFDU0605-65-98 18:46:00 Test Item Value Reference Range Interpretation Comments Segs-Bands # (test code = Segs-Bands #) 2.9 1.5-8.1 [facility] CenterLmzkrbcAXHBIYLENV0779-58-87 18:46:00 Test Item Value Reference Range Interpretation Comments Eosinophils # (test code 0.2 See_Comment [A utomated message] The = Eosinophils #) system whic h generated this result tra nsmitted reference range : <=0.5. The reference r mitra was not used to int erpret this result as normal/abnormal . [facility] CenterGrjuuiiCHUTLBUTWL7950-60-82 18:46:00 Test Item Value Reference Range Interpretation Comments Basophils # (test code 0.1 See_Comment [Aut omated message] The = Basophils #) system which generated this result tra nsmitted reference range : <=0.2. The reference r mitra was not used to int erpret this result as normal/abnormal . [facility] CenterErhrdqqCZROEYNTVV2364-42-17 18:46:00 Test Item Value Reference Range Interpretation Comments PT (test code = PT) 11.2 s 12.0-14.7 [facility] CenterPbilyyqPZIVIOUGTC3637-04-00 18:46:00 Test Item Value Reference Range Interpretation Comments INR (test code = INR) 0.82 0.85-1.17 [facility] CenterHonhuinQZBKKMUXCT9598-24-58 18:46:00 Test Item Value Reference Range Interpretation Comments PTT (test code = PTT) 28.6 s 22.9-35.8 [facility] CenterUtsajawYYPPUNRYXF0159-27-24 18:46:00 Test Item Value Reference Range Interpretation Comments MPV (test code = MPV) 8.1 7.4-10.4 [facility] CenterMxqxbdaCADINXTUJY2096-31-54 18:46:00 Test Item Value Reference Range Interpretation Comments Platelet (test code = Platelet) 301 133-450 [facility] CenterZdgwzueCSDVAEETXN7512-67-27 18:46:00 Test Item Value Reference Range Interpretation Comments RDW (test code = RDW) 14.5 11.5-14.5 [facility] CenterPqdovkpKCSMPARMZJ3978-10-74 18:46:00 Test Item Value Reference Range Interpretation Comments RBC (test code = RBC) 4.84 4.70-6.10 [facility] CenterXmlfnrySJLGMUAEQA8732-50-48 18:46:00 Test Item Value Reference Range Interpretation Comments Hgb (test code = Hgb) 14.4 14.0-18.0 [facility] CenterMtikbkjLDBTNQSPVF2812-25-80 18:46:00 Test Item Value Reference Range Interpretation Comments WBC (test code = WBC) 5.2 3.7-10.4 [facility] CenterQfforlxWDYNDAQYYZ1099-80-77 18:46:00 Test Item Value Reference Range Interpretation Comments MCH (test code = MCH) 29.8 pg 27.0-31.0 [facility] CenterRoqiwblDKJYTOIRVX0987-86-31 18:46:00 Test Item Value Reference Range Interpretation Comments MCV (test code = MCV) 92.0 80.0-94.0 [facility] HospitalIhajeriKGTOFKVUXJ6191-50-58 18:46:00 Test Item Value Reference Range Interpretation Comments Hct (test code = Hct) 44.5 42.0-54.0 [facility]qhczFUYZGNGYHN5075-66-28 18:46:00 Test Item Value Reference Range Interpretation Comments MCHC (test code = MCHC) 32.4 32.0-36.0 [facility]landsTxnazcoPHFJPBYAZP4233-50-92 18:46:00 Test Item Value Reference Range Interpretation Comments [place]-Hep C Ab (test Negative *NA*(07/22/14 code = [place]-Hep C 1:46 PM) Ab) [facility] AND [id number] 18:46:00 Test Item Value Reference Range Interpretation Comments UA Urobilinogen (test code = UA <=1.0 mg/dL 0.1-1.0 Urobilinogen) [facility] AND [id number] 18:46:00 Test Item Value Reference Range Interpretation Comments UA Sq Epi (test code = UA Sq Epi) None Seen [facility] AND [id number] 18:46:00 Test Item Value Reference Range Interpretation Comments UA Leuk Est (test Negative (07/22/14 1:46 code = UA Leuk Est) PM) [facility] AND [id number] 18:46:00 Test Item Value Reference Range Interpretation Comments UA Nitrite (test code Negative (07/22/14 1:46 = UA Nitrite) PM) [facility] AND [id number] 18:46:00 Test Item Value Reference Range Interpretation Comments UA Blood (test code = Negative (07/22/14 1:46 UA Blood) PM) [facility] AND [id number] 18:46:00 Test Item Value Reference Range Interpretation Comments UA Ketones (test code = UA Negative mg/dL Ketones) [facility] AND [id number] 18:46:00 Test Item Value Reference Range Interpretation Comments UA Bili (test code = Negative *NA*(07/22/14 UA Bili) 1:46 PM) [facility]ann[facility] AND [id number] 18:46:00 Test Item Value Reference Range Interpretation Comments UA Bacteria (test code = UA Occasional /HPF Bacteria) [facility] AND [id number] 18:46:00 Test Item Value Reference Range Interpretation Comments UA RBC (test code = no gt See_Comment [Automa elizabeth message] The UA RBC) system which ge nerated this result transmit elizabeth reference range : <=2. The reference range was not used to interpr et this result as lukas l/abnormal. [facility] AND [id number] 18:46:00 Test Item Value Reference Range Interpretation Comments UA WBC (test code = 1 See_Comment [Automa elizabeth message] The UA WBC) system which ge nerated this result transmit elizabeth reference range : <=5. The reference range was not used to interpr et this result as lukas l/abnormal. [facility] AND [id number] 18:46:00 Test Item Value Reference Range Interpretation Comments UA Glucose (test code = UA Glucose) 30 mg/dL [facility] AND [id number] 18:46:00 Test Item Value Reference Range Interpretation Comments UA Protein (test code = UA Negative mg/dL Protein) [facility] AND [id number] 18:46:00 Test Item Value Reference Range Interpretation Comments UA pH (test code = UA pH) 6.5 5.0-8.0 [facility] AND [id number] 18:46:00 Test Item Value Reference Range Interpretation Comments UA Turbidity (test code = Clear (07/22/14 1:46 UA Turbidity) PM) [facility] AND [id number] 18:46:00 Test Item Value Reference Range Interpretation Comments UA Spec Grav (test code = UA Spec Grav) 1.010 [facility] AND [id number] 18:46:00 Test Item Value Reference Range Interpretation Comments UA Color (test code = Light Yellow UA Color) *NA*(07/22/14 1:46 PM) [facility] [id number] 18:46:00 Test Item Value Reference Range Interpretation Comments Magnesium Lvl (test code = Magnesium 1.8 1.8-2.4 Lvl) [facility] HospitalAyydgcnESTMFEHHWXLM9198-52-43 18:46:00 Test Item Value Reference Range Interpretation Comments AGAP (test code = AGAP) 13.2 10.0-20.0 [facility] CenterSclrygoSWYJVZIZZCNX4706-61-39 18:46:00 Test Item Value Reference Range Interpretation Comments B/C Ratio (test code = B/C Ratio) 18 6-25 [facility] CenterSrikwfpVVIVLSTPSYOF7275-48-89 18:46:00 Test Item Value Reference Range Interpretation Comments A/G Ratio (test code = A/G Ratio) 1.1 0.7-1.6 [facility] CenterPsdlexvXMMYAYVLIAFP2477-24-75 18:46:00 Test Item Value Reference Range Interpretation Comments Globulin (test code = Globulin) 3.3 2.0-4.0 [facility] CenterSdbrokaTMBVDKRLKRWW0757-33-13 18:46:00 Test Item Value Reference Range Interpretation Comments eGFR (test code = eGFR) 99 [facility] CenterTaqzyzrLXKNAGAGPYQR5290-49-21 18:46:00 Test Item Value Reference Range Interpretation Comments Calcium Lvl (test code = Calcium Lvl) 9.0 8.5-10.5 [facility] CenterZhnrrlcFEGBQMAVMWLC6726-39-57 18:46:00 Test Item Value Reference Range Interpretation Comments Chloride Lvl (test code = Chloride Lvl) 106 95-109 [facility] CenterFvphbukTTYNWNQYQBXR8176-83-66 18:46:00 Test Item Value Reference Range Interpretation Comments Creatinine Lvl (test code = Creatinine 0.9 0.5-1.4 Lvl) [facility] CenterHpmocakWEAGSRJRJMTU3482-33-03 18:46:00 Test Item Value Reference Range Interpretation Comments Potassium Lvl (test code = Potassium 4.2 3.5-5.1 Lvl) [facility] CenterIrwwqxlJCDGKVSSTJPE5642-65-67 18:46:00 Test Item Value Reference Range Interpretation Comments Sodium Lvl (test code = Sodium Lvl) 139 135-145 [facility] CenterMultljeNYDOBACRJZKN6343-09-46 18:46:00 Test Item Value Reference Range Interpretation Comments CO2 (test code = CO2) 24 24-32 [facility] CenterWaxvjyyZGSCHHAIGICP6835-31-52 18:46:00 Test Item Value Reference Range Interpretation Comments BUN (test code = BUN) 16 7-22 [facility] CenterZbhscpdJVUZYUIXAYJL1728-64-61 18:46:00 Test Item Value Reference Range Interpretation Comments Glucose Lvl (test code = Glucose Lvl) 141 70-99 [facility] CenterOjtqkynTRBHJXYQBLWN0396-73-50 18:46:00 Test Item Value Reference Range Interpretation Comments Albumin Lvl (test code = Albumin Lvl) 3.6 3.5-5.0 [facility] CenterYfgsqjsYSOKBWJVHYUJ7262-84-39 18:46:00 Test Item Value Reference Range Interpretation Comments Alk Phos (test code = Alk Phos) 65 39-136 [facility] CenterTmxppfrVWOJLXFIDAIM6315-99-84 18:46:00 Test Item Value Reference Range Interpretation Comments Bili Total (test code = Bili Total) 0.3 0.2-1.3 [facility] CenterRdfvcskJCZBPQUKVOGI8417-13-88 18:46:00 Test Item Value Reference Range Interpretation Comments ALT (test code = ALT) 100 See_Comment [Auto mated message] The system which ge nerated this result transmit elizabeth reference range : <=65. The reference range was not used to interpr et this result as lukas l/abnormal. [facility] CenterXivlinaTGNBPAONBDWW0815-16-39 18:46:00 Test Item Value Reference Range Interpretation Comments AST (test code = AST) 53 See_Comment [Auto mated message] The system which ge nerated this result transmit elizabeth reference range : <=37. The reference range was not used to interpr et this result as lukas l/abnormal. [facility] CenterIdoyrgpRVQPKVSOGCDZ7914-27-53 18:46:00 Test Item Value Reference Range Interpretation Comments Total Protein (test code = Total 6.9 6.4-8.4 Protein) [facility] CenterJeoarsnMLPDJNDORD3412-78-83 18:46:00 Test Item Value Reference Range Interpretation Comments Eosinophils (test code = 4.2 See_Comment [A utomated message] The Eosinophils) system which ge nerated this result tra nsmitted reference range : <=4.0. The reference r mitra was not used to int erpret this result as normal/abnormal . [facility] CenterPvxnekwFDSACRHZIB3587-62-58 18:46:00 Test Item Value Reference Range Interpretation Comments Segs (test code = Segs) 56.4 45.0-75.0 [facility] CenterRywzgmgKOIWIBRNJZ7178-15-16 18:46:00 Test Item Value Reference Range Interpretation Comments Monocytes (test code = Monocytes) 10.3 2.0-12.0 [facility] CenterAouepqzTLOVVGXJAN7736-47-05 18:46:00 Test Item Value Reference Range Interpretation Comments Lymphocytes (test code = Lymphocytes) 28.0 20.0-40.0 [facility] CenterPofnvfhGYEXUBNSLL5203-62-01 18:46:00 Test Item Value Reference Range Interpretation Comments Monocytes # (test code 0.5 See_Comment [Aut omated message] The = Monocytes #) system which generated this result tra nsmitted reference range : <=0.8. The reference r mitra was not used to int erpret this result as normal/abnormal . [facility] CenterMxfftwoKSDGXLBZQJ4292-10-78 18:46:00 Test Item Value Reference Range Interpretation Comments Basophils (test code = 1.1 See_Comment [Aut omated message] The Basophils) system which ge nerated this result tra nsmitted reference range : <=1.0. The reference r mitra was not used to int erpret this result as normal/abnormal . [facility] CenterXcbgnhaXQWVBHJLCK7390-33-99 18:46:00 Test Item Value Reference Range Interpretation Comments Lymphocytes # (test code = Lymphocytes 1.5 1.0-5.5 #) [facility] CenterPzycjnyVASLTROKIT9323-57-13 18:46:00 Test Item Value Reference Range Interpretation Comments Segs-Bands # (test code = Segs-Bands #) 2.9 1.5-8.1 [facility] CenterYedpvjgYRACDGTNPS4095-25-06 18:46:00 Test Item Value Reference Range Interpretation Comments Eosinophils # (test code 0.2 See_Comment [A utomated message] The = Eosinophils #) system whic h generated this result tra nsmitted reference range : <=0.5. The reference r mitra was not used to int erpret this result as normal/abnormal . [facility] CenterSxhibtcSFDUTCIKZM3871-39-79 18:46:00 Test Item Value Reference Range Interpretation Comments Basophils # (test code 0.1 See_Comment [Aut omated message] The = Basophils #) system which generated this result tra nsmitted reference range : <=0.2. The reference r mitra was not used to int erpret this result as normal/abnormal . [facility] CenterMuykjshPFRXBUIXQW4045-96-16 18:46:00 Test Item Value Reference Range Interpretation Comments PT (test code = PT) 11.2 s 12.0-14.7 [facility] CenterDvglsweRJNYDMGUMH4578-66-54 18:46:00 Test Item Value Reference Range Interpretation Comments INR (test code = INR) 0.82 0.85-1.17 [facility] CenterNrninlbYQVEDDVOVO7524-01-83 18:46:00 Test Item Value Reference Range Interpretation Comments PTT (test code = PTT) 28.6 s 22.9-35.8 [facility] CenterZlmdcmoWDCNNZCHGE5319-60-20 18:46:00 Test Item Value Reference Range Interpretation Comments MPV (test code = MPV) 8.1 7.4-10.4 [facility] CenterCrietvxODGRNYSRWF3158-04-59 18:46:00 Test Item Value Reference Range Interpretation Comments Platelet (test code = Platelet) 301 133-450 [facility] CenterStcvbicQROFTHBHBH8869-04-09 18:46:00 Test Item Value Reference Range Interpretation Comments RDW (test code = RDW) 14.5 11.5-14.5 [facility] CenterUgzdeecAGTJAZTZKS8247-78-85 18:46:00 Test Item Value Reference Range Interpretation Comments RBC (test code = RBC) 4.84 4.70-6.10 [facility] CenterTaysimbNNOTKNLZCW1759-13-16 18:46:00 Test Item Value Reference Range Interpretation Comments Hgb (test code = Hgb) 14.4 14.0-18.0 [facility] CenterJvldszvAEIROPHVNK8621-87-39 18:46:00 Test Item Value Reference Range Interpretation Comments WBC (test code = WBC) 5.2 3.7-10.4 [facility] CenterVxpvndvPIGZBTGMSX4806-75-71 18:46:00 Test Item Value Reference Range Interpretation Comments MCH (test code = MCH) 29.8 pg 27.0-31.0 [facility] CenterUhtfmmfNYYMUNOUDC0207-73-55 18:46:00 Test Item Value Reference Range Interpretation Comments MCV (test code = MCV) 92.0 80.0-94.0 [facility] CenterIyildmbFHBCNSQCLC5393-54-36 18:46:00 Test Item Value Reference Range Interpretation Comments Hct (test code = Hct) 44.5 42.0-54.0 [facility] CenterBqqnstpVVHAYSGGFL1422-76-85 18:46:00 Test Item Value Reference Range Interpretation Comments MCHC (test code = MCHC) 32.4 32.0-36.0 [facility]OqzkjbzKKOBUNKPQG7022-73-39 18:46:00 Test Item Value Reference Range Interpretation Comments [place]Hep C Ab (test Negative *NA*(07/22/14 code = [place]Hep C 1:46 PM) Ab) [facility] AND [id number] 18:46:00 Test Item Value Reference Range Interpretation Comments UA Urobilinogen (test code = UA <=1.0 mg/dL 0.1-1.0 Urobilinogen) [facility] AND [id number] 18:46:00 Test Item Value Reference Range Interpretation Comments UA Sq Epi (test code = UA Sq Epi) None Seen [facility] AND [id number] 18:46:00 Test Item Value Reference Range Interpretation Comments UA Leuk Est (test Negative (07/22/14 1:46 code = UA Leuk Est) PM) [facility] [facility] AND [id number] 18:46:00 Test Item Value Reference Range Interpretation Comments UA Nitrite (test code Negative (07/22/14 1:46 = UA Nitrite) PM) [facility] AND [id number] 18:46:00 Test Item Value Reference Range Interpretation Comments UA Blood (test code = Negative (07/22/14 1:46 UA Blood) PM) [facility] AND [id number] 18:46:00 Test Item Value Reference Range Interpretation Comments UA Ketones (test code = UA Negative mg/dL Ketones) [facility] AND [id number] 18:46:00 Test Item Value Reference Range Interpretation Comments UA Bili (test code = Negative *NA*(07/22/14 UA Bili) 1:46 PM) [facility] AND [id number] 18:46:00 Test Item Value Reference Range Interpretation Comments UA Bacteria (test code = UA Occasional /HPF Bacteria) [facility] AND [id number] 18:46:00 Test Item Value Reference Range Interpretation Comments UA RBC (test code = no gt See_Comment [Automa elizabeth message] The UA RBC) system which ge nerated this result transmit elizabeth reference range : <=2. The reference range was not used to interpr et this result as lukas l/abnormal. [facility] AND [id number] 18:46:00 Test Item Value Reference Range Interpretation Comments UA WBC (test code = 1 See_Comment [Automa elizabeth message] The UA WBC) system which ge nerated this result transmit elizabeth reference range : <=5. The reference range was not used to interpr et this result as lukas l/abnormal. [facility] AND [id number] 18:46:00 Test Item Value Reference Range Interpretation Comments UA Glucose (test code = UA Glucose) 30 mg/dL [facility] AND [id number] 18:46:00 Test Item Value Reference Range Interpretation Comments UA Protein (test code = UA Negative mg/dL Protein) [facility] AND [id number] 18:46:00 Test Item Value Reference Range Interpretation Comments UA pH (test code = UA pH) 6.5 5.0-8.0 [facility] AND [id number] 18:46:00 Test Item Value Reference Range Interpretation Comments UA Turbidity (test code = Clear (07/22/14 1:46 UA Turbidity) PM) [facility] AND [id number] 18:46:00 Test Item Value Reference Range Interpretation Comments UA Spec Grav (test code = UA Spec Grav) 1.010 [facility] AND [id number] 18:46:00 Test Item Value Reference Range Interpretation Comments UA Color (test code = Light Yellow UA Color) *NA*(07/22/14 1:46 PM) [facility] [id number] 18:46:00 Test Item Value Reference Range Interpretation Comments Magnesium Lvl (test code = Magnesium 1.8 1.8-2.4 Lvl) [facility][id number] 18:46:00 Test Item Value Reference Range Interpretation Comments AGAP (test code = AGAP) 13.2 10.0-20.0 [facility] CenterCbgnkejFUACSPACXQIG5726-55-63 18:46:00 Test Item Value Reference Range Interpretation Comments B/C Ratio (test code = B/C Ratio) 18 6-25 [facility] CenterShfujfrKYFKDPOHBSGX3055-68-56 18:46:00 Test Item Value Reference Range Interpretation Comments A/G Ratio (test code = A/G Ratio) 1.1 0.7-1.6 [facility] CenterNukasjpXACHNUSOOUDW0266-43-27 18:46:00 Test Item Value Reference Range Interpretation Comments Globulin (test code = Globulin) 3.3 2.0-4.0 [facility] CenterZljlxfbKAIYJWTMDPBN7549-74-63 18:46:00 Test Item Value Reference Range Interpretation Comments eGFR (test code = eGFR) 99 [facility] CenterJnycapqQOEDVUHQQIRO3468-24-62 18:46:00 Test Item Value Reference Range Interpretation Comments Calcium Lvl (test code = Calcium Lvl) 9.0 8.5-10.5 [facility] CenterObjmvdbWRBNWUEYYPJQ8920-59-57 18:46:00 Test Item Value Reference Range Interpretation Comments Chloride Lvl (test code = Chloride Lvl) 106 95-109 [facility] CenterSovhnsaDUJTWAHBSKLJ1147-63-91 18:46:00 Test Item Value Reference Range Interpretation Comments Creatinine Lvl (test code = Creatinine 0.9 0.5-1.4 Lvl) [facility] CenterHsnhbyoMKJHICHOILPQ7256-50-93 18:46:00 Test Item Value Reference Range Interpretation Comments Potassium Lvl (test code = Potassium 4.2 3.5-5.1 Lvl) [facility] CenterByyapwbQMMEFKRRFPRP3381-72-54 18:46:00 Test Item Value Reference Range Interpretation Comments Sodium Lvl (test code = Sodium Lvl) 139 135-145 [facility] CenterDklnxxxONEWYMBEOTME4474-11-24 18:46:00 Test Item Value Reference Range Interpretation Comments CO2 (test code = CO2) 24 24-32 [facility] CenterLtblgxyZUMEMKYTAEJP4936-16-08 18:46:00 Test Item Value Reference Range Interpretation Comments BUN (test code = BUN) 16 7-22 [facility] CenterHhcmrnmBYIIXMZOCIEY6732-53-93 18:46:00 Test Item Value Reference Range Interpretation Comments Glucose Lvl (test code = Glucose Lvl) 141 70-99 [facility] CenterAqwwrmhGGPXAMIQIEJV8679-01-73 18:46:00 Test Item Value Reference Range Interpretation Comments Albumin Lvl (test code = Albumin Lvl) 3.6 3.5-5.0 [facility] CenterRdlahyqUZEGMXMGXJPS2256-45-04 18:46:00 Test Item Value Reference Range Interpretation Comments Alk Phos (test code = Alk Phos) 65 39-136 [facility] CenterBafkgvjBNGHCFJTHJFQ7957-70-18 18:46:00 Test Item Value Reference Range Interpretation Comments Bili Total (test code = Bili Total) 0.3 0.2-1.3 [facility] CenterBdmmrgsZUGHQELMISZE2624-32-57 18:46:00 Test Item Value Reference Range Interpretation Comments ALT (test code = ALT) 100 See_Comment [Auto mated message] The system which ge nerated this result transmit elizabeth reference range : <=65. The reference range was not used to interpr et this result as lukas l/abnormal. [facility] CenterZouzxpeQRUAVMTMILCW0137-41-03 18:46:00 Test Item Value Reference Range Interpretation Comments AST (test code = AST) 53 See_Comment [Auto mated message] The system which ge nerated this result transmit elizabeth reference range : <=37. The reference range was not used to interpr et this result as lukas l/abnormal. [facility] CenterXhvntezSRGNBRPKMXQY0442-25-14 18:46:00 Test Item Value Reference Range Interpretation Comments Total Protein (test code = Total 6.9 6.4-8.4 Protein) [facility] CenterAuvjkvuSISIXTCWZI4697-32-62 18:46:00 Test Item Value Reference Range Interpretation Comments Eosinophils (test code = 4.2 See_Comment [A utomated message] The Eosinophils) system which ge nerated this result tra nsmitted reference range : <=4.0. The reference r mitra was not used to int erpret this result as normal/abnormal . [facility] CenterLjuhqyiPTHIQJMYVU1509-76-09 18:46:00 Test Item Value Reference Range Interpretation Comments Segs (test code = Segs) 56.4 45.0-75.0 [facility] CenterQjaofkoUNBAQEXVKO4547-56-11 18:46:00 Test Item Value Reference Range Interpretation Comments Monocytes (test code = Monocytes) 10.3 2.0-12.0 [facility] CenterEqnypsuBJMPRZTUHA5392-74-46 18:46:00 Test Item Value Reference Range Interpretation Comments Lymphocytes (test code = Lymphocytes) 28.0 20.0-40.0 [place] [id number] 18:46:00 Test Item Value Reference Range Interpretation Comments Monocytes # (test code 0.5 See_Comment [Aut omated message] The = Monocytes #) system which generated this result tra nsmitted reference range : <=0.8. The reference r mitra was not used to int erpret this result as normal/abnormal . [facility] CenterAcvwyfvWZVGSMEXMZ1374-13-93 18:46:00 Test Item Value Reference Range Interpretation Comments Basophils (test code = 1.1 See_Comment [Aut omated message] The Basophils) system which ge nerated this result tra nsmitted reference range : <=1.0. The reference r mitra was not used to int erpret this result as normal/abnormal . [facility] CenterBflamnvPRSCTHYAFE5870-66-52 18:46:00 Test Item Value Reference Range Interpretation Comments Lymphocytes # (test code = Lymphocytes 1.5 1.0-5.5 #) [facility] CenterYqmivhbCRKDTHRRNP6634-44-78 18:46:00 Test Item Value Reference Range Interpretation Comments Segs-Bands # (test code = Segs-Bands #) 2.9 1.5-8.1 [facility] CenterPjahewhOULZDBWEPA7120-14-32 18:46:00 Test Item Value Reference Range Interpretation Comments Eosinophils # (test code 0.2 See_Comment [A utomated message] The = Eosinophils #) system whic h generated this result tra nsmitted reference range : <=0.5. The reference r mitra was not used to int erpret this result as normal/abnormal . [facility] CenterTogffawCLRWEYVXAY8514-62-59 18:46:00 Test Item Value Reference Range Interpretation Comments Basophils # (test code 0.1 See_Comment [Aut omated message] The = Basophils #) system which generated this result tra nsmitted reference range : <=0.2. The reference r mitra was not used to int erpret this result as normal/abnormal . [facility] CenterXymjccnBPAAKJRWIR7591-66-45 18:46:00 Test Item Value Reference Range Interpretation Comments PT (test code = PT) 11.2 s 12.0-14.7 [facility] CenterZqohijbGQXGCOAMKX7649-19-96 18:46:00 Test Item Value Reference Range Interpretation Comments INR (test code = INR) 0.82 0.85-1.17 [facility] CenterFcuzuwoYAPBLTUZDV8905-08-32 18:46:00 Test Item Value Reference Range Interpretation Comments PTT (test code = PTT) 28.6 s 22.9-35.8 [facility] CenterCfhjbxwIJFPCJSURB0515-33-71 18:46:00 Test Item Value Reference Range Interpretation Comments MPV (test code = MPV) 8.1 7.4-10.4 [facility] CenterPqtobnpRGHKQIBHTA9926-70-18 18:46:00 Test Item Value Reference Range Interpretation Comments Platelet (test code = Platelet) 301 133-450 [facility] CenterWttkqmgWAMAZXUTLV3712-70-48 18:46:00 Test Item Value Reference Range Interpretation Comments RDW (test code = RDW) 14.5 11.5-14.5 [facility]lDWQUKEIMHR0705-[facility] 18:46:00 Test Item Value Reference Range Interpretation Comments RBC (test code = RBC) 4.84 4.70-6.10 [facility] CenterDooqmnrZBCLIKTJAM0076-32-82 18:46:00 Test Item Value Reference Range Interpretation Comments Hgb (test code = Hgb) 14.4 14.0-18.0 [facility] CenterKpcabljSDGFZUOQFV3608-37-00 18:46:00 Test Item Value Reference Range Interpretation Comments WBC (test code = WBC) 5.2 3.7-10.4 [facility] CenterMyfgiqxUTGEOQPELI0945-55-17 18:46:00 Test Item Value Reference Range Interpretation Comments MCH (test code = MCH) 29.8 pg 27.0-31.0 [facility] CenterMupzjtzKUUNJSZTQK2308-12-93 18:46:00 Test Item Value Reference Range Interpretation Comments MCV (test code = MCV) 92.0 80.0-94.0 [facility]CfrnsftOMIBDHARIA7119-69-11 18:46:00 Test Item Value Reference Range Interpretation Comments Hct (test code = Hct) 44.5 42.0-54.0 [facility] CenterWgbnfbhMOEEZUIDHH6741-43-70 18:46:00 Test Item Value Reference Range Interpretation Comments MCHC (test code = MCHC) 32.4 32.0-36.0 [facility]PeonebbPAKRQZAELE6031-25-49 18:46:00 Test Item Value Reference Range Interpretation Comments [place]-Hep C Ab (test Negative *NA*(07/22/14 code = [place]-Hep C 1:46 PM) Ab) [facility] AND [id number] 18:46:00 Test Item Value Reference Range Interpretation Comments UA Urobilinogen (test code = UA <=1.0 mg/dL 0.1-1.0 Urobilinogen) [facility] AND [id number] 18:46:00 Test Item Value Reference Range Interpretation Comments UA Sq Epi (test code = UA Sq Epi) None Seen [facility] AND [id number] 18:46:00 Test Item Value Reference Range Interpretation Comments UA Leuk Est (test Negative (07/22/14 1:46 code = UA Leuk Est) PM) [facility] AND [id number] 18:46:00 Test Item Value Reference Range Interpretation Comments UA Nitrite (test code Negative (07/22/14 1:46 = UA Nitrite) PM) [facility] AND [id number] 18:46:00 Test Item Value Reference Range Interpretation Comments UA Blood (test code = Negative (07/22/14 1:46 UA Blood) PM) [facility] AND [id number] 18:46:00 Test Item Value Reference Range Interpretation Comments UA Ketones (test code = UA Negative mg/dL Ketones) [facility] AND [id number] 18:46:00 Test Item Value Reference Range Interpretation Comments UA Bili (test code = Negative *NA*(07/22/14 UA Bili) 1:46 PM) [facility] AND [id number] 18:46:00 Test Item Value Reference Range Interpretation Comments UA Bacteria (test code = UA Occasional /HPF Bacteria) [facility] AND [id number] 18:46:00 Test Item Value Reference Range Interpretation Comments UA RBC (test code = no gt See_Comment [Automa elizabeth message] The UA RBC) system which ge nerated this result transmit elizabeth reference range : <=2. The reference range was not used to interpr et this result as lukas l/abnormal. [facility] AND [id number] 18:46:00 Test Item Value Reference Range Interpretation Comments UA WBC (test code = 1 See_Comment [Automa elizabeth message] The UA WBC) system which ge nerated this result transmit elizabeth reference range : <=5. The reference range was not used to interpr et this result as lukas l/abnormal. [facility] AND [id number] 18:46:00 Test Item Value Reference Range Interpretation Comments UA Glucose (test code = UA Glucose) 30 mg/dL [facility] AND [id number] 18:46:00 Test Item Value Reference Range Interpretation Comments UA Protein (test code = UA Negative mg/dL Protein) [facility] AND [id number] 18:46:00 Test Item Value Reference Range Interpretation Comments UA pH (test code = UA pH) 6.5 5.0-8.0 [facility] AND [id number] 18:46:00 Test Item Value Reference Range Interpretation Comments UA Turbidity (test code = Clear (07/22/14 1:46 UA Turbidity) PM) [facility] AND [id number] 18:46:00 Test Item Value Reference Range Interpretation Comments UA Spec Grav (test code = UA Spec Grav) 1.[address] [facility] AND [id number] 18:46:00 Test Item Value Reference Range Interpretation Comments UA Color (test code = Light Yellow UA Color) *NA*(07/22/14 1:46 PM) [facility] [id number] 18:46:00 Test Item Value Reference Range Interpretation Comments Magnesium Lvl (test code = Magnesium 1.8 1.8-2.4 Lvl) [facility] CenterAkrawunEUQGBVRAELZJ6202-42-84 18:46:00 Test Item Value Reference Range Interpretation Comments AGAP (test code = AGAP) 13.2 10.0-20.0 [facility] CenterNawwczsDXZRRIOXCNZT0689-73-97 18:46:00 Test Item Value Reference Range Interpretation Comments B/C Ratio (test code = B/C Ratio) 18 6-25 [facility] CenterAwfsohmIDVRNGCTXUYN0384-39-57 18:46:00 Test Item Value Reference Range Interpretation Comments A/G Ratio (test code = A/G Ratio) 1.1 0.7-1.6 [facility] CenterZyzczakXAVPXUTBMAJX1030-88-57 18:46:00 Test Item Value Reference Range Interpretation Comments Globulin (test code = Globulin) 3.3 2.0-4.0 [facility] CenterJrqmevhFANMBLUXLIPL5385-02-51 18:46:00 Test Item Value Reference Range Interpretation Comments eGFR (test code = eGFR) 99 [facility] CenterPrsctocSPIEYVCPJTAZ5471-84-86 18:46:00 Test Item Value Reference Range Interpretation Comments Calcium Lvl (test code = Calcium Lvl) 9.0 8.5-10.5 [facility] CenterPiszjmdFHSJFCLCVOPQ6359-75-25 18:46:00 Test Item Value Reference Range Interpretation Comments Chloride Lvl (test code = Chloride Lvl) 106 95-109 [facility] CenterLubipnwYPUEJYADYMHK0288-12-85 18:46:00 Test Item Value Reference Range Interpretation Comments Creatinine Lvl (test code = Creatinine 0.9 0.5-1.4 Lvl) [facility] CenterYrdhmnuEFLGGBZXGHJS9952-28-83 18:46:00 Test Item Value Reference Range Interpretation Comments Potassium Lvl (test code = Potassium 4.2 3.5-5.1 Lvl) [facility] CenterIpjcdtkHGMCYSVTMIRS0992-01-96 18:46:00 Test Item Value Reference Range Interpretation Comments Sodium Lvl (test code = Sodium Lvl) 139 135-145 [facility] CenterQjkowqeDRAHBXLUMLVM1311-92-83 18:46:00 Test Item Value Reference Range Interpretation Comments CO2 (test code = CO2) 24 24-32 [facility] CenterTzwlbfuVKRFPFJVXLIU4169-72-83 18:46:00 Test Item Value Reference Range Interpretation Comments BUN (test code = BUN) 16 7-22 [facility] CenterEjnlnihIWXXVXANYLFC0172-77-70 18:46:00 Test Item Value Reference Range Interpretation Comments Glucose Lvl (test code = Glucose Lvl) 141 70-99 [facility] CenterYyczdqdNREOYJRMHIUO2285-07-48 18:46:00 Test Item Value Reference Range Interpretation Comments Albumin Lvl (test code = Albumin Lvl) 3.6 3.5-5.0 [facility] CenterIufxldvHHRINGDCINMV1937-26-16 18:46:00 Test Item Value Reference Range Interpretation Comments Alk Phos (test code = Alk Phos) 65 39-136 [facility] CenterRfzpzbzEUUSLWVJMHEJ3614-14-80 18:46:00 Test Item Value Reference Range Interpretation Comments Bili Total (test code = Bili Total) 0.3 0.2-1.3 [facility] CenterHuffjzeHWOGUXHDZZYY8595-35-35 18:46:00 Test Item Value Reference Range Interpretation Comments ALT (test code = ALT) 100 See_Comment [Auto mated message] The system which ge nerated this result transmit elizabeth reference range : <=65. The reference range was not used to interpr et this result as lukas l/abnormal. [facility] CenterOtfqecmTYGIXRHAAQBH4487-21-50 18:46:00 Test Item Value Reference Range Interpretation Comments AST (test code = AST) 53 See_Comment [Auto mated message] The system which ge nerated this result transmit elizabeth reference range : <=37. The reference range was not used to interpr et this result as lukas l/abnormal. [facility] CenterTblkmuqFKDMWKZJJFAL1826-56-58 18:46:00 Test Item Value Reference Range Interpretation Comments Total Protein (test code = Total 6.9 6.4-8.4 Protein) [facility] CenterBdcmylsDZWLSYQPRM3883-87-28 18:46:00 Test Item Value Reference Range Interpretation Comments Eosinophils (test code = 4.2 See_Comment [A utomated message] The Eosinophils) system which ge nerated this result tra nsmitted reference range : <=4.0. The reference r mitra was not used to int erpret this result as normal/abnormal . [facility] CenterVcgmbphJDWNKCGCCR1994-23-64 18:46:00 Test Item Value Reference Range Interpretation Comments Segs (test code = Segs) 56.4 45.0-75.0 [facility] CenterFmnolcfWTXPWQGRXT6848-23-29 18:46:00 Test Item Value Reference Range Interpretation Comments Monocytes (test code = Monocytes) 10.3 2.0-12.0 [facility] CenterPntigjgLQKHFYGAQN8824-49-32 18:46:00 Test Item Value Reference Range Interpretation Comments Lymphocytes (test code = Lymphocytes) 28.0 20.0-40.0 [facility] CenterZbqifeaGOYBTOXZQK4553-11-87 18:46:00 Test Item Value Reference Range Interpretation Comments Monocytes # (test code 0.5 See_Comment [Aut omated message] The = Monocytes #) system which generated this result tra nsmitted reference range : <=0.8. The reference r mitra was not used to int erpret this result as normal/abnormal . [facility] CenterAwdevdqWLKWOSXEJU3432-65-52 18:46:00 Test Item Value Reference Range Interpretation Comments Basophils (test code = 1.1 See_Comment [Aut omated message] The Basophils) system which ge nerated this result tra nsmitted reference range : <=1.0. The reference r mitra was not used to int erpret this result as normal/abnormal . [facility] CenterFhdltpgRCBVSZCBKI4995-65-43 18:46:00 Test Item Value Reference Range Interpretation Comments Lymphocytes # (test code = Lymphocytes 1.5 1.0-5.5 #) [facility] CenterHimcrqlMKPOYGWNUD9037-84-06 18:46:00 Test Item Value Reference Range Interpretation Comments Segs-Bands # (test code = Segs-Bands #) 2.9 1.5-8.1 [facility] CenterBbpqcnfVRFLMSUKHB8748-87-50 18:46:00 Test Item Value Reference Range Interpretation Comments Eosinophils # (test code 0.2 See_Comment [A utomated message] The = Eosinophils #) system whic h generated this result tra nsmitted reference range : <=0.5. The reference r mitra was not used to int erpret this result as normal/abnormal . [facility] CenterGccefhmUNVFCYKOUH9631-88-82 18:46:00 Test Item Value Reference Range Interpretation Comments Basophils # (test code 0.1 See_Comment [Aut omated message] The = Basophils #) system which generated this result tra nsmitted reference range : <=0.2. The reference r mitra was not used to int erpret this result as normal/abnormal . [facility] CenterOublvaoSRIQNRAMCB6155-79-14 18:46:00 Test Item Value Reference Range Interpretation Comments PT (test code = PT) 11.2 s 12.0-14.7 [facility] CenterThxkrkxXKGXORCLAZ0966-52-37 18:46:00 Test Item Value Reference Range Interpretation Comments INR (test code = INR) 0.82 0.85-1.17 [facility] CenterPfzgcftINPSDXETBG5996-64-70 18:46:00 Test Item Value Reference Range Interpretation Comments PTT (test code = PTT) 28.6 s 22.9-35.8 [facility] CenterMpoctiyMJGTLJLUPQ1034-33-77 18:46:00 Test Item Value Reference Range Interpretation Comments MPV (test code = MPV) 8.1 7.4-10.4 [facility] CenterOwrrfxwZIZQOTIAXA4756-16-70 18:46:00 Test Item Value Reference Range Interpretation Comments Platelet (test code = Platelet) 301 133-450 [facility] CenterUijcrsjTYFWLEWXMD5714-19-48 18:46:00 Test Item Value Reference Range Interpretation Comments RDW (test code = RDW) 14.5 11.5-14.5 [facility] CenterFkklylaOBCIJAHJZY9186-31-76 18:46:00 Test Item Value Reference Range Interpretation Comments RBC (test code = RBC) 4.84 4.70-6.10 [facility] CenterPofqwqtZKGPDMLKZF6312-98-09 18:46:00 Test Item Value Reference Range Interpretation Comments Hgb (test code = Hgb) 14.4 14.0-18.0 [facility] CenterUhfqipySHHIXJEWID0632-89-82 18:46:00 Test Item Value Reference Range Interpretation Comments WBC (test code = WBC) 5.2 3.7-10.4 [facility]UaftpraZPHWTLDYTW4529-11-02 18:46:00 Test Item Value Reference Range Interpretation Comments MCH (test code = MCH) 29.8 pg 27.0-31.0 [facility]AjqbetnISRKUCYCEW4908-13-54 18:46:00 Test Item Value Reference Range Interpretation Comments MCV (test code = MCV) 92.0 80.0-94.0 [facility]MyqcwkfEFQRMLSWFK4326-84-41 18:46:00 Test Item Value Reference Range Interpretation Comments Hct (test code = Hct) 44.5 42.0-54.0 [facility] HospitalOvwzlkzFPZEUXVDQL6538-75-34 18:46:00 Test Item Value Reference Range Interpretation Comments MCHC (test code = MCHC) 32.4 32.0-36.0 [facility] HospitalNnzjpepXKHBKJELGY4888-74-27 18:46:00 Test Item Value Reference Range Interpretation Comments [place]Hep C Ab (test Negative *NA*(07/22/14 code = [place]-Hep C 1:46 PM) Ab) [facility] AND [id number] 18:46:00 Test Item Value Reference Range Interpretation Comments UA Urobilinogen (test code = UA <=1.0 mg/dL 0.1-1.0 Urobilinogen) [facility] AND [id number] 18:46:00 Test Item Value Reference Range Interpretation Comments UA Sq Epi (test code = UA Sq Epi) None Seen [facility] AND [id number] 18:46:00 Test Item Value Reference Range Interpretation Comments UA Leuk Est (test Negative (07/22/14 1:46 code = UA Leuk Est) PM) [facility] AND [id number] 18:46:00 Test Item Value Reference Range Interpretation Comments UA Nitrite (test code Negative (07/22/14 1:46 = UA Nitrite) PM) [facility] AND [id number] 18:46:00 Test Item Value Reference Range Interpretation Comments UA Blood (test code = Negative (07/22/14 1:46 UA Blood) PM) [facility] AND [id number] 18:46:00 Test Item Value Reference Range Interpretation Comments UA Ketones (test code = UA Negative mg/dL Ketones) [facility] AND [id number] 18:46:00 Test Item Value Reference Range Interpretation Comments UA Bili (test code = Negative *NA*(07/22/14 UA Bili) 1:46 PM) [facility] [id number] 18:46:00 Test Item Value Reference Range Interpretation Comments UA Bacteria (test code = UA Occasional /HPF Bacteria) [facility] [id number] 18:46:00 Test Item Value Reference Range Interpretation Comments UA RBC (test code = no gt See_Comment [Automa elizabeth message] The UA RBC) system which ge nerated this result transmit elizabeth reference range : <=2. The reference range was not used to interpr et this result as lukas l/abnormal. [facility] AND [id number] 18:46:00 Test Item Value Reference Range Interpretation Comments UA WBC (test code = 1 See_Comment [Automa elizabeth message] The UA WBC) system which ge nerated this result transmit elizabeth reference range : <=5. The reference range was not used to interpr et this result as lukas l/abnormal. [facility] [id number] 18:46:00 Test Item Value Reference Range Interpretation Comments UA Glucose (test code = UA Glucose) 30 mg/dL [facility] AND [id number] 18:46:00 Test Item Value Reference Range Interpretation Comments UA Protein (test code = UA Negative mg/dL Protein) [facility] [id number] 18:46:00 Test Item Value Reference Range Interpretation Comments UA pH (test code = UA pH) 6.5 5.0-8.0 [facility] AND [id number] 18:46:00 Test Item Value Reference Range Interpretation Comments UA Turbidity (test code = Clear (07/22/14 1:46 UA Turbidity) PM) [facility] [id number] 18:46:00 Test Item Value Reference Range Interpretation Comments UA Spec Grav (test code = UA Spec Grav) 1.010 [facility] [id number] 18:46:00 Test Item Value Reference Range Interpretation Comments UA Color (test code = Light Yellow UA Color) *NA*(07/22/14 1:46 PM) [facility] [id number] 18:46:00 Test Item Value Reference Range Interpretation Comments Magnesium Lvl (test code = Magnesium 1.8 1.8-2.4 Lvl) [id number] 18:46:00 Test Item Value Reference Range Interpretation Comments AGAP (test code = AGAP) 13.2 10.0-20.0 [facility] Center[id number] 18:46:00 Test Item Value Reference Range Interpretation Comments B/C Ratio (test code = B/C Ratio) 18 6-25 [facility] CenterMxfiixvQGTQCQXZQDAR1203-64-86 18:46:00 Test Item Value Reference Range Interpretation Comments A/G Ratio (test code = A/G Ratio) 1.1 0.7-1.6 [facility] Center[id number] 18:46:00 Test Item Value Reference Range Interpretation Comments Globulin (test code = Globulin) 3.3 2.0-4.0 [facility] CenterCdkydciLJUJRVSAXQSN1912-41-01 18:46:00 Test Item Value Reference Range Interpretation Comments eGFR (test code = eGFR) 99 [facility] CenterLamwbbpWSBOEDXVKKEH6747-82-48 18:46:00 Test Item Value Reference Range Interpretation Comments Calcium Lvl (test code = Calcium Lvl) 9.0 8.5-10.5 [facility] CenterBbaneejALUZBJAPTLHM7826-90-57 18:46:00 Test Item Value Reference Range Interpretation Comments Chloride Lvl (test code = Chloride Lvl) 106 95-109 [facility] CenterCbjksdlQKHSPKEDBVJX8021-40-60 18:46:00 Test Item Value Reference Range Interpretation Comments Creatinine Lvl (test code = Creatinine 0.9 0.5-1.4 Lvl) [facility] CenterXwmgwsiZIEYYSUEUKWH4917-82-40 18:46:00 Test Item Value Reference Range Interpretation Comments Potassium Lvl (test code = Potassium 4.2 3.5-5.1 Lvl) [facility] CenterKpsltrdYLCFJDMXMULM1057-80-16 18:46:00 Test Item Value Reference Range Interpretation Comments Sodium Lvl (test code = Sodium Lvl) 139 135-145 [facility] CenterXisyfizFYLULXKFTRFX7190-03-34 18:46:00 Test Item Value Reference Range Interpretation Comments CO2 (test code = CO2) 24 24-32 [facility] CenterCbyivbwXNASLCJXOCSW6238-04-77 18:46:00 Test Item Value Reference Range Interpretation Comments BUN (test code = BUN) 16 7-22 [facility] CenterTophbvcUQZYSZVYNNMV9650-43-05 18:46:00 Test Item Value Reference Range Interpretation Comments Glucose Lvl (test code = Glucose Lvl) 141 70-99 [facility] CenterRxamhdtZENKPPMSFIBK0481-38-37 18:46:00 Test Item Value Reference Range Interpretation Comments Albumin Lvl (test code = Albumin Lvl) 3.6 3.5-5.0 [facility] CenterYgyayqaRIXSYVJYIGIQ0684-14-66 18:46:00 Test Item Value Reference Range Interpretation Comments Alk Phos (test code = Alk Phos) 65 39-136 [facility] CenterHlureygRHVUIWFQKBXN4426-27-95 18:46:00 Test Item Value Reference Range Interpretation Comments Bili Total (test code = Bili Total) 0.3 0.2-1.3 [facility] CenterJchauxjSITISCUNMVRU0520-20-62 18:46:00 Test Item Value Reference Range Interpretation Comments ALT (test code = ALT) 100 See_Comment [Auto mated message] The system which ge nerated this result transmit elizabeth reference range : <=65. The reference range was not used to interpr et this result as lukas l/abnormal. [facility] CenterIauhsaoSXLGTLHFXWLV2292-37-47 18:46:00 Test Item Value Reference Range Interpretation Comments AST (test code = AST) 53 See_Comment [Auto mated message] The system which ge nerated this result transmit elizabeth reference range : <=37. The reference range was not used to interpr et this result as lukas l/abnormal. [facility] CenterWxzenmoWFQSGXHKDAGU7716-11-29 18:46:00 Test Item Value Reference Range Interpretation Comments Total Protein (test code = Total 6.9 6.4-8.4 Protein) [facility] Cent[id number] 18:46:00 Test Item Value Reference Range Interpretation Comments Eosinophils (test code = 4.2 See_Comment [A utomated message] The Eosinophils) system which ge nerated this result tra nsmitted reference range : <=4.0. The reference r mitra was not used to int erpret this result as normal/abnormal . [facility] CenterOzuguizUUBWHWCCNQ9678-56-11 18:46:00 Test Item Value Reference Range Interpretation Comments Segs (test code = Segs) 56.4 45.0-75.0 [facility] CenterIlrutouPNVOHCQOGF7011-37-56 18:46:00 Test Item Value Reference Range Interpretation Comments Monocytes (test code = Monocytes) 10.3 2.0-12.0 [facility] CenterLytilnuSHTTXSPUDN9131-58-75 18:46:00 Test Item Value Reference Range Interpretation Comments Lymphocytes (test code = Lymphocytes) 28.0 20.0-40.0 [facility] Cent[id number] 18:46:00 Test Item Value Reference Range Interpretation Comments Monocytes # (test code 0.5 See_Comment [Aut omated message] The = Monocytes #) system which generated this result tra nsmitted reference range : <=0.8. The reference r mitra was not used to int erpret this result as normal/abnormal . [facility] CenterXlmufqwUNNINMAQFX6480-87-10 18:46:00 Test Item Value Reference Range Interpretation Comments Basophils (test code = 1.1 See_Comment [Aut omated message] The Basophils) system which ge nerated this result tra nsmitted reference range : <=1.0. The reference r mitra was not used to int erpret this result as normal/abnormal . [facility] CenterOqlqwomJCJUNJAWYZ7202-84-84 18:46:00 Test Item Value Reference Range Interpretation Comments Lymphocytes # (test code = Lymphocytes 1.5 1.0-5.5 #) [facility] CenterIrdiqprPRBDKGDPSC3457-13-07 18:46:00 Test Item Value Reference Range Interpretation Comments Segs-Bands # (test code = Segs-Bands #) 2.9 1.5-8.1 [facility] CenterRunoybuWZZTEPBHZD7080-64-25 18:46:00 Test Item Value Reference Range Interpretation Comments Eosinophils # (test code 0.2 See_Comment [A utomated message] The = Eosinophils #) system whic h generated this result tra nsmitted reference range : <=0.5. The reference r mitra was not used to int erpret this result as normal/abnormal . [facility] Cent[id number] 18:46:00 Test Item Value Reference Range Interpretation Comments Basophils # (test code 0.1 See_Comment [Aut omated message] The = Basophils #) system which generated this result tra nsmitted reference range : <=0.2. The reference r mitra was not used to int erpret this result as normal/abnormal . [facility] CenterFowhqpdXDZEPMUTWK3295-87-16 18:46:00 Test Item Value Reference Range Interpretation Comments PT (test code = PT) 11.2 s 12.0-14.7 [facility] CenterSevgzmbKVJBSHXIHO2458-79-69 18:46:00 Test Item Value Reference Range Interpretation Comments INR (test code = INR) 0.82 0.85-1.17 [facility] CenterXgfxhhdTLJTDUCUXP4431-26-43 18:46:00 Test Item Value Reference Range Interpretation Comments PTT (test code = PTT) 28.6 s 22.9-35.8 [facility] CenterQtiuyopCDKZMBBPGX2923-07-44 18:46:00 Test Item Value Reference Range Interpretation Comments MPV (test code = MPV) 8.1 7.4-10.4 [place] [id number] 18:46:00 Test Item Value Reference Range Interpretation Comments Platelet (test code = Platelet) 301 133-450 [facility] CenterRkqssmdKDXYFWUJNE8006-85-23 18:46:00 Test Item Value Reference Range Interpretation Comments RDW (test code = RDW) 14.5 11.5-14.5 [facility] CenterHgkdfnjVEGBRROCVN4000-23-08 18:46:00 Test Item Value Reference Range Interpretation Comments RBC (test code = RBC) 4.84 4.70-6.10 [facility] CenterPsoarlvDLKTUFSVTN4041-20-31 18:46:00 Test Item Value Reference Range Interpretation Comments Hgb (test code = Hgb) 14.4 14.0-18.0 [facility] CenterXusfaibTUNMNOJBPW2519-79-77 18:46:00 Test Item Value Reference Range Interpretation Comments WBC (test code = WBC) 5.2 3.7-10.4 [facility] CenterOmmopbrERWMCJJUNO6572-01-00 18:46:00 Test Item Value Reference Range Interpretation Comments MCH (test code = MCH) 29.8 pg 27.0-31.0 [facility] CenterCqaeyrhNYLIVHBDRN6125-07-31 18:46:00 Test Item Value Reference Range Interpretation Comments MCV (test code = MCV) 92.0 80.0-94.0 [place] [id number] 18:46:00 Test Item Value Reference Range Interpretation Comments Hct (test code = Hct) 44.5 42.0-54.0 [facility] CenterMjtoqtaECMBIRGLZL1319-45-89 18:46:00 Test Item Value Reference Range Interpretation Comments MCHC (test code = MCHC) 32.4 32.0-36.0 [facility] DoynupeAEMHHSOHWC9115-06-65 18:46:00 Test Item Value Reference Range Interpretation Comments [place]-Hep C Ab (test Negative *NA*(07/22/14 code = [place]-Hep C 1:46 PM) Ab) [facility] [id number] 18:46:00 Test Item Value Reference Range Interpretation Comments UA Urobilinogen (test code = UA <=1.0 mg/dL 0.1-1.0 Urobilinogen) [facility] [id number] 18:46:00 Test Item Value Reference Range Interpretation Comments UA Sq Epi (test code = UA Sq Epi) None Seen [facility] AND [id number] 18:46:00 Test Item Value Reference Range Interpretation Comments UA Leuk Est (test Negative (07/22/14 1:46 code = UA Leuk Est) PM) [facility] [id number] 18:46:00 Test Item Value Reference Range Interpretation Comments UA Nitrite (test code Negative (07/22/14 1:46 = UA Nitrite) PM) [facility] [id number] 18:46:00 Test Item Value Reference Range Interpretation Comments UA Blood (test code = Negative (07/22/14 1:46 UA Blood) PM) [facility] [id number] 18:46:00 Test Item Value Reference Range Interpretation Comments UA Ketones (test code = UA Negative mg/dL Ketones) [facility] [id number] 18:46:00 Test Item Value Reference Range Interpretation Comments UA Bili (test code = Negative *NA*(07/22/14 UA Bili) 1:46 PM) [facility] [id number] 18:46:00 Test Item Value Reference Range Interpretation Comments UA Bacteria (test code = UA Occasional /HPF Bacteria) [facility] [id number] 18:46:00 Test Item Value Reference Range Interpretation Comments UA RBC (test code = no gt See_Comment [Automa elizabeth message] The UA RBC) system which ge nerated this result transmit elizabeth reference range : <=2. The reference range was not used to interpr et this result as lukas l/abnormal. [facility] [id number] 18:46:00 Test Item Value Reference Range Interpretation Comments UA WBC (test code = 1 See_Comment [Automa elizabeth message] The UA WBC) system which ge nerated this result transmit elizabeth reference range : <=5. The reference range was not used to interpr et this result as lukas l/abnormal. [facility] [id number] 18:46:00 Test Item Value Reference Range Interpretation Comments UA Glucose (test code = UA Glucose) 30 mg/dL [facility] [id number] 18:46:00 Test Item Value Reference Range Interpretation Comments UA Protein (test code = UA Negative mg/dL Protein) [facility] [id number] 18:46:00 Test Item Value Reference Range Interpretation Comments UA pH (test code = UA pH) 6.5 5.0-8.0 [facility] [id number] 18:46:00 Test Item Value Reference Range Interpretation Comments UA Turbidity (test code = Clear (07/22/14 1:46 UA Turbidity) PM) [facility] [id number] 18:46:00 Test Item Value Reference Range Interpretation Comments UA Spec Grav (test code = UA Spec Grav) 1.010 [facility] [id number] 18:46:00 Test Item Value Reference Range Interpretation Comments UA Color (test code = Light Yellow UA Color) *NA*(07/22/14 1:46 PM) [facility]ann[facility] [id number] 18:46:00 Test Item Value Reference Range Interpretation Comments Magnesium Lvl (test code = Magnesium 1.8 1.8-2.4 Lvl) [facility] WkcuxoyEULHJTLXRRDX1695-90-18 18:46:00 Test Item Value Reference Range Interpretation Comments AGAP (test code = AGAP) 13.2 10.0-20.0 [facility] Notes Date/Time Note Provider Source 2017-01-31 21:00:10-00:00 [facility] Discharge Summary PATIENT NAME: VITALIYMARKEVIN PHYSICIAN: Royal Reed Admitted: MR NUMBER: [id number] DISCHARGED: 01/04/2017 12:2 2:00 DATE OF ADMISSION: 12/23/2016 DATE OF DISCHARGE: 01/04/2017 REASON FOR ADMISSION: The patient was admitted for a chief complaint o f disorganized thoughts and behaviors, apparent delusions. He was brought to [facility] by the [facility] senior living after he was arrested on criminal mi schief. While in senior living, he displayed disorganized behavior and disorganized thoughts, [...] receives Social Security, re cently released from fdc and poor social support. PRINCIPAL PROCEDURES: Psychopharmacotherapy. [...] resolution of his Patient Name: KEVIN KAYE [id number] admitting symptoms, of disorganized behavior, di sorganized [...] and attention, both grossly intact. [facility] of [facility] e: Appropriate for age and education. [...] RESTRICTIONS: None. FOLLOWUP: Patient Name: KEVIN KAYE [id number] The patient has a followup appointment scheduled with [facility] in [place] on 01/23/2017 at 1:30 p.m. and has [...] The patient has also met with the dialysis social worker to obtain appropriate followup report. The importance on following through with this plan has been review ed with the patient. The patient understands that compliance will be cruc ial to his recovery. He has been given the [facility] Crisis hotline number and the information about the [facility], if he wishes to obtain t herapy. MD Ramana Winn MD MH/BECKY TD: 01/16/2017 02:03 CC:Ramana Shea MD Electronically Authenticated by: Royal Miller MD On 01/17/2017 02:55 PM OVERLAY OPERATOR Electronically Authenticated by: Ramana Shea MD On 02/15/2017 12:47 PM OVERLAY OPERATOR 2017-01-06 13:35:23-00:00 [facility] Progress Note PATIENT NAME: KEVIN KAYE PHYSICIAN: Shiva hopper MD Admitted: MR NUMBER: [id number] DISCHARGED: DATE OF SERVICE: 12/30/2016 TIME SEEN: 16:40. SUBJECTIVE: I was asked to see this patient by Dr. Ramana salazar's service, particularly resident, Dr. Miller, with regard to this patient' s condition. Apparently, this patient was brought in with roberto e form of psychosis and altered mental status from [facility]. Apparently, there was concern for [...] performed in his upper thigh region abo ar a couple years ago and apparently he [...] He states that care was received at [facility] with regards to t his issue. PHYSICAL EXAMINATION: VITAL SIGNS: Temperature 98.0 degrees Fahrenheit , heart rate 81, respiratory rate 16, blood pressure 135/81. GENERAL: This patient is talking to me, appears focused, at times inappropriate with some of the answers I give hi m; however, when redirected appears to be making sensible speech. He knows alina elizabeth is at [facility]. [facility] Progress Note PATIENT NAME: KEVIN KAYE PHYSICIAN: Shiva hopper MD Admitted: MR NUMBER: [id number] DISCHARGED: DATE OF SERVICE: 12/30/2016 TIME SEEN: 16:40. SUBJECTIVE: I was asked to see this patient by Dr. Ramana salazar's service, particularly resident, Dr. Miller, with regard to this patient' s condition. Apparently, this patient was brought in with roberto e form of psychosis and altered mental status from [facility]. Apparently, there was concern for [...] He states that care was received at [facility] with regards to t his issue. PHYSICAL EXAMINATION: VITAL SIGNS: Temperature 98.0 degrees Fahrenheit , heart rate 81, respiratory rate 16, blood pressure 135/81. GENERAL: This patient is talking to me, appears focused, at times inappropriate with some of the answers I give hi m; however, when redirected appears to be making sensible speech. He knows h glenn is at [facility]. Patient Name: KEVIN KAYE [id number] CHEST: Clear to auscultation bilaterally. No whe [...] medical issues here. Patient Name: KEVIN KAYE [id number] CHEST: Clear to auscultation bilaterally. No whe [...] medical issues here. Patient Name: KEVIN KAYE [id number] We will continue to follow. MD PEDRO uCrrie/AURORA/CTV TD: 12/30/2016 18:08 Patient Name: KEVIN KAYE [id number] We will continue to follow. MD PEDRO Currie/AURORA/CTV TD: 12/30/2016 18:08 Electronically Authenticated by: Shiva Stack MD On 01/06/2017 12:12 PM [facility] 2017-01-05 17:10:42-00:00 [facility] History and Physical PATIENT NAME: KEVIN KAYE PHYSICIAN: Lisa rockwell MD Admitted: MR NUMBER: [id number] DISCHARGED: DATE OF SERVICE: 12/24/2016 The patient was seen and examined today. CONSULTING PHYSICIAN: Ramana Shea MD. REASON FOR CONSULTATION: Medical management. HISTORY OF PRESENT ILLNESS: The patient is a 55-year-old gentleman , an extremely unreliable and poor historian. Does not answer appropriately, a pparently transferred here from [facility] for bizarre behavior. At this [...] Could not obtain. PERSONAL HISTORY: He is [facility] resident. He does have a [...] No JVD. No spinal or CVA tenderness. [facility] History and Physical LUNGS: Vesicular [...] any questions or concern. MD NATHALIE Gray/JESSI/MAX [facility] History and Physical TD: 12/24/2016 17:03 Electronically Authenticated and Edited by: Lisa Beard MD On 01/05/2017 05:10 PM OVERLAY OPERATOR 2016-12-30 16:09:20-00:00 [facility] History and Physical PATIENT NAME: KEVIN KAYE PHYSICIAN: Jose David Francisco Admitted: MR NUMBER: [id number] DISCHARGED: ATTENDING PHYSICIAN: Ramana Shea MD INFORMANT: The patient skilled nursing warrant. CHIEF COMPLAINT: "I'm hungry." HISTORY OF PRESENT ILLNESS: Mr. Kevin Kaye is a 55-year-old male with self- reported past psychiatric history of bipolar disorder, depression, anxiety , PTSD, alcohol use, that presented from [facility] on a detenti on warrant secondary to smearing fecal matter on surrounding responding to internal stimuli, not eating or drinking. He arrived at [facility] on 12/20/2016 for criminal mischief [...] was last treated with EC T at [facility], but cannot specify how long ago [...] the EMR, he was also treated at [facility] in 2009 and 201 1 records are not digital and will need to be obtained from medical records fo r further review. FAMILY PSYCHIATRIC HISTORY: Denies. PAST MEDICAL HISTORY: 1. Hypertension. 2. Gastroesophageal reflux. 3. 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 REVIEW OF SYSTEMS: [facility] History and Physical PATIENT NAME: KEVIN KAYE PHYSICIAN: Jose David Francisco Admitted: MR NUMBER: [id number] DISCHARGED: ATTENDING PHYSICIAN: Ramana Shea MD INFORMANT: The patient skilled nursing warrant. CHIEF COMPLAINT: "I'm hungry." HISTORY OF PRESENT ILLNESS: Mr. Kevin Kaye is a 55-year-old male with self- reported past psychiatric history of bipolar disorder, depression, anxiety , PTSD, alcohol use, that presented from [facility] on a detenti on warrant secondary to smearing fecal matter on surrounding responding to internal stimuli, not eating or drinking. He arrived at [facility] on 12/20/2016 for criminal mischief [...] was last treated with EC T at [facility], but cannot specify how long ago [...] EMR, he was also treated at [facility] in 2008 and 201 1 records are not digital and will need to be obtained from medical records fo r further review. FAMILY PSYCHIATRIC HISTORY: Denies. PAST MEDICAL HISTORY: 1. Hypertension. 2. Gastroesophageal reflux. 3. 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 REVIEW OF SYSTEMS: [facility] History and Physical HEENT: Negative [...] HISTORY: Recent stressors damage to house from [facility]. HOUSEHOLD: [place] [place] EMPLOYMENT: On disability, social security income of [...] person, situation, or time. SPEECH: Fair articulation. [facility] History and Physical HEENT: Negative [...] Lives alone in a rental home in [place]. EMPLOYMENT: On disability, social security income of [...] person, situation, or time. SPEECH: Fair articulation. [facility] History and Physical MOOD: Okay. [...] , PTSD, alcohol use, that presented from [facility] on skilled nursing warrant secondary to smearing fecal matter on surroundings responding to internal stimuli, not eating or drinking. Overall, the patient is a po or historian. Review of past records and collateral would be beneficial and treatment of the patient and establishing prior baseline. Due to history of significant alcohol use with last drink on 12/20/2016 in senior living as [facility] on skilled nursing warrant and presentation [...] IV: Lives alone in a house in [place]. Soc [facility] Security income of 2300, the patient is . PLAN: Mr. Kevin Kaye will be admitted to Dr. Shea's service on the [facility] inpatient unit and placed on one-to-one [...] for further jessi luation and management of [facility] History and Physical MOOD: Okay. [...] , PTSD, alcohol use, [facility] secondary to smearing fecal matter on surroundings responding to internal stimuli, not eating or drinking. Overall, the patient is a po or historian. Review of past records and collateral would be beneficial and treatment of the patient and establishing prior baseline. Due to history of significant alcohol use with last drink on 12/20/2016 in senior living as documen elizabeth on skilled nursing warrant [...] IV: Lives alone in a house in [place]. Soc [facility] Security income of 2300, the patient is . PLAN: Mr. Kevin Kaye will be admitted to Dr. Shea's service on the [facility] inpatient unit and placed on one-to-one [...] for further jessi luation and management of [facility] History and Physical medical conditions including the patient's repor elizabeth history of DVT with IVC filter. MD SHUBHAM Fuller/ANUJ TD: 12/25/2016 02:45 CC:Ramana Shea MD Edited by: Jose David Mcdermott MD On 12/30/2016 04:08 PM OVERLAY OPERATOR Electronically Authenticated and Edited by: Jose David Mcdermott MD On 12/30/2016 04:09 PM OVERLAY OPERATOR [facility] History and Physical medical conditions including the patient's repor elizabeth history of DVT with IVC filter. MD SHUBHAM Fuller/ANUJ TD: 12/25/2016 02:45 CC:Ramana Shea MD Edited by: Jose David Mcdermott MD On 12/30/2016 04:08 PM OVERLAY OPERATOR Electronically Authenticated and Edited by: Jose David Mcdermott MD On 12/30/2016 04:09 PM OVERLAY OPERATOR Electronically Authenticated by: Ramana Shea MD On 01/05/2017 07:48 PM OVERLAY OPERATOR
[2022-07-24 00:27] VITALS: BP 140/67; TEMP 98.8; O2SAT 100
== END 2022-07-23 23:55 | disposition home or self-care (01) ==
LOC: ER 23:21
DX: M79.661 Pain in right lower leg (principal); Z86.718 Personal history of other venous thrombosis and embolism; F17.220 Nicotine dependence, chewing tobacco, uncomplicated; Z88.0 Allergy status to penicillin; Z88.8 Allergy status to other drugs, medicaments and biological substances
CPT/HCPCS: 99282